=== PATIENT | female | born 1995 | race African-American/Black ===

== ENCOUNTER 2024-04-02 01:29 | Emergency (ER) | payer BC, SELFPAY ==
[2024-04-02 01:30] VITALS: BP 116/76; PULSE 111; RESP 16; TEMP 37.4; O2SAT 96; BMI 20.8
[2024-04-02] MEDS: diphenhydrAMINE 50 MG/ML inj 25 MG IVP ×2 (02:38→03:15)
[2024-04-02] MEDS: HYDROmorphone 0.5 mg/0.5 ml inj 2 MG IVP ×3 (02:38→04:50)
[2024-04-02] MEDS: ONDANSETRON 2 MG/ML inj 4 MG IVP (02:38)
[2024-04-02] MEDS: 0.45 % SODIUM CHLORIDE 1000 ML 1,000 ML IV (02:38)
--- NOTE | 2024-04-02 03:52 | ED_ITS ---
HPI - General Adult General Chief complaint: Back Injury/Pain Stated complaint: sickle cell crisis History of Present Illness HPI narrative: recently moved to the area and tonight while unpacking boxes began having severe pain in back and legs. patient has hx of sickle cell. tried her oral dilaudid 2mg around 2200 w/o relief. comes to ER for pain managment. 29-year-old young woman presenting to the emergency department for a first-time visit having just arrived to the area from [place]. Believe her boyfriend is living in the area. She notes herself to have sickle cell disease and has been having increasingly severe pain in her back and legs. No abdominal pain. No chest pain or shortness of breath. No cough. No fever. No hematuria noted. She does typically have oral Dilaudid and 3 hours prior to presentation is emergency department did take 2 mg. Has an appointment on Wednesday, tomorrow, apparently with [facility] at with hematology to establish cares. She reports receiving care at what sounds like an infusion center for sickle cell crises regularly. She is requesting her recommended regimen which includes as she describes it, likely 3 doses of Dilaudid and diphenhydramine, spaced an hour or 2 apart. Along with fluid resuscitation. Related Data Home Medications ?Medication ?Instructions ?Recorded ?Confirmed hydromorphone 2 mg tablet 4 mg PO Q4H PRN pain 04/02/24 04/08/24 folic acid 2 tab PO DAILY 04/04/24 04/08/24 hydroxyurea (sickle cell) 1,000 mg PO BID 04/04/24 04/08/24 Allergies Allergy/AdvReac Type Severity Reaction Status Date / Time cashew nut Allergy Verified 04/08/24 00:45 ketorolac (From Toradol) Allergy Verified 04/08/24 00:45 tramadol Allergy Verified 04/08/24 00:45 banana AdvReac Verified 04/08/24 00:45 latex AdvReac Verified 04/08/24 00:45 Review of Systems Status of ROS: Reports: 6 or more systems reviewed and unremarkable except as noted in History and below [facility] Medical History Sickle cell anemia ?D57.1 - Sickle-cell disease without crisis (ICD-10) Social History Smoking Status: Never smoker Do you use any of these nicotine containing products: None How often do you have a drink containing alcohol: never AUDIT-C Alcohol total score: 0 Non-prescribed substance use: opiods/painkillers Exam Narrative: Exam Narrative: Slim. Pleasant. Quite calm. Skin is warm and dry without bruising or rash. No scleral icterus. Breathing easily. Lungs are clear. No reproducible pain to palpation about the back or flanks. Abdomen is soft nontender. Well- perfused peripherally moving all extremities without difficulty. Heart in elevated rate and regular rhythm. No murmur noted. Const: Vital Signs, click to edit/add: Vital Signs - 24 hr 04/02/24 01:30 04/02/24 04:06 04/02/24 04:07 Temperature 99.4 F Pulse Rate [Pulse Oximeter] 111 H 90 Respiratory Rate 16 16 Blood Pressure [Ri ght Upper Arm] 116/76 Pulse Oximetry 96 93 93 Oxygen Delivery Me thod Room Air Room Air 04/02/24 04:10 Temperature Pulse Rate [Pulse Oximeter] Respiratory Rate Blood Pressure [Ri ght Upper Arm] 99/64 Pulse Oximetry Oxygen Delivery Me thod Documenting provider has reviewed patient's vital signs: yes Course Vital Signs Vital signs: Initial Vital Signs Temperature 99.4 F 04/02/24 01:30 Temperature Source Temporal Artery Scan 04/02/24 01:30 Pulse Rate 111 H 04/02/24 01:30 Respiratory Rate 16 04/02/24 01:30 Blood Pressure 116/76 04/02/24 01:30 Blood Pressure Mean 89 04/02/24 01:30 Blood Pressure Position Sitting 04/02/24 01:30 Pulse Oximetry 96 04/02/24 01:30 Oxygen Delivery Method Room Air 04/02/24 01:30 Vital Signs Temperature 99.4 F 04/02/24 01:30 Pulse Rate 111 H 04/02/24 01:30 Respiratory Rate 16 04/02/24 01:30 Blood Pressure 116/76 04/02/24 01:30 Pulse Oximetry 96 04/02/24 01:30 Oxygen Delivery Method Room Air 04/02/24 01:30 Temperature 99.4 F 04/02/24 01:30 Pulse Rate 90 04/02/24 04:07 Respiratory Rate 16 04/02/24 04:07 Blood Pressure 99/64 04/02/24 04:10 Pulse Oximetry 93 04/02/24 04:07 Oxygen Delivery Method Room Air 04/02/24 04:07 Medications Administered Medications: Discontinued Medications Generic Name Dose Route Start Last Admin Trade Name Ramona PRN Reason Stop Dose Admin Diphenhydramine HCl 25 mg 04/02/24 04:54 04/02/24 03:15 Diphenhydramine 50 Mg/Ml Inj IVP 04/02/24 04:55 25 mg ONCE ONE Administration Diphenhydramine HCl 25 mg 04/02/24 04:56 04/02/24 02:38 Diphenhydramine 50 Mg/Ml Inj IVP 04/02/24 04:57 25 mg ONCE ONE Administration Hydromorphone HCl 2 mg 04/02/24 04:38 04/02/24 02:38 Hydromorphone 0.5 Mg/0.5 Ml Inj IVP 04/02/24 04:39 2 mg ONCE ONE Administration Hydromorphone HCl 2 mg 04/02/24 04:54 04/02/24 03:15 Hydromorphone 0.5 Mg/0.5 Ml Inj IVP 04/02/24 04:55 2 mg ONCE ONE Administration Hydromorphone HCl 2 mg 04/02/24 04:56 04/02/24 04:50 Hydromorphone 0.5 Mg/0.5 Ml Inj IVP 04/02/24 04:57 2 mg ONCE ONE Administration Sodium Chloride 1,000 mls @ 1,000 mls/hr 04/02/24 05:10 04/02/24 03:38 0.45 % Sodium Chloride 1000 Ml IV 04/02/24 06:09 Infused .Q1H ONE Infusion Ondansetron HCl 4 mg 04/02/24 04:54 04/02/24 02:38 Ondansetron 2 Mg/Ml Inj IVP 04/02/24 04:55 4 mg ONCE ONE Administration Medical Decision Making MDM Narrative Medical decision making narrative: Would collect labs here to assistance tabs in care and certainly evaluate for anemia in this setting. IV is established. Have requested half normal saline bolus. Unclear benefit diphenhydramine other than at sounds as though the might be some nausea with IV opiate a dispose might augment affectively of the Dilaudid. At this time of night do not have records of prior care. Will treat as requested/recommended at this time. Uneventful during time in the ER. She required all 3 scheduled doses of hydromorphone. Hemoglobin is 7.3 which she reports as being acceptable for her and would not normally get a transfusion at this time. Other labs reviewed as baseline for pain crisis. Requesting final and 3rd dose; last dose of pain medication and has already contacted her ride to come get her. Reports improved. Would benefit from having records to further her cares. Has close follow-up with [facility] and notes that has pain medication at home anticipating further prescriptions in outpatient follow-up. See patient discharge plan for further discussion Lab Data Lab results reviewed: Yes I reviewed the patient's lab results Discharge Plan Discharge Clinical Impression: Sickle cell anemia with crisis, Back pain, Leg pain Patient Disposition: Home w/ Parent or Adult Condition: Improved Additional Instructions: As you have indicated, please be seen in 2 days time at [facility] hematology. Please take these copies of your labs with you to that appointment. Be seen sooner for marked increase in pain, shortness of breath, fever. Prescriptions: No Action hydromorphone 2 mg tablet 4 mg PO Q4H PRN (Reason: pain) hydroxyurea (sickle cell) 1,000 mg PO BID folic acid 2 tab PO DAILY Rx Instructions: 2mg Follow Up/Referrals: Provider,Not a Local [Primary Care Provider] - Stand Alone Forms: [employer] Info Instructions
[2024-04-02 04:06] VITALS: O2SAT 93
[2024-04-02 04:07] VITALS: PULSE 90; RESP 16; O2SAT 93
[2024-04-02 04:10] VITALS: BP 99/64
== END 2024-04-02 05:05 | disposition home or self-care (01) ==
PROVIDERS: Emergency Provider Family Medicine
DX: D57.00 Hb-SS disease with crisis, unspecified (principal); M54.9 Dorsalgia, unspecified
CPT/HCPCS: 94761; 99284; J1171; J1200; J2405

== ENCOUNTER 2024-04-04 02:05 | Emergency (ER) | payer BC, SELFPAY ==
[2024-04-04 02:11] VITALS: BP 120/72; PULSE 96; RESP 16; TEMP 36.7; O2SAT 98; BMI 20.8
--- NOTE | 2024-04-04 02:56 | ED_ITS ---
HPI - General Adult General Chief complaint: Unspecified Complaint, Adult Stated complaint: sickle cell crisis Time Seen by Provider: 04/04/24 02:10 Source: patient Mode of arrival: ambulatory Limitations: no limitations History of Present Illness HPI narrative: 29-year-old female presents to the ED in sickle cell crisis. Has been brewing over the last few days. Was evaluated in our ED overnight 2 nights ago with similar symptoms. Reported temporary improvement with the pain medications given. No fever. No chest pain or shortness of breath. Pain is in the back and legs which is common for her with these crisis ease. She reports that she had actually gone 5 years without a crisis prior to 2 years ago. She had a lot of trouble during her and has had more flares . She has been well managed by a dedicated sickle cell hematology team out in [place]. She moved to our clinic 5 days ago. She has established with primary care at through [facility] in [place]. Review of the DEPORTATION OFFICER monitoring is appropriate. She is on the wait list to be seen at the [facility] in [facility]. She has been in communication with them waiting for an appointment to open up. Hemoglobin and labs were checked at her ED visit 2 days ago. She has been using her 4 mg oral Toradol with inadequate relief of her pain. These labs are reviewed from [facility]. I can pull these up and actually see the labs that she had performed back in [place] as well since they are connected on the [email or web address] system. Unfortunately, the ED note from 2 days ago has not yet been completed by the provider. I can see that she was not discharged on additional medications but a typical sickle cell regimen was given IV here in the ED. Labs from [facility] showed that her hemoglobin was 7.6, was 7.53 days prior. She has had multiple blood transfusions, the last being just a few weeks ago. She was given 20 tablets of the hydromorphone on 03/30. Outside records reviewed. Outside labs reviewed. Past medical history really only notable for the sickle cell disease. Thankfully she has not had any major complications like critical ischemia from this. She does not smoke. She was on dialysis during but reports that she does not require this any longer. She has made all the appropriate arrangements for subspecialty care regarding her sickle cell disease but is awaiting appointments and has been diligent about following up regarding the wait list. ROS is negative for acute abnormalities outside of her sickle cell disease such as fever, chest pain, shortness of breath, vomiting, bloody stools, joint swelling. ROS is otherwise negative times 12 systems with the exception of the back and leg pain as described above. Related Data Home Medications ?Medication ?Instructions ?Recorded ?Confirmed hydromorphone 2 mg tablet 4 mg PO Q4H PRN pain 04/02/24 04/04/24 folic acid 2 tab PO DAILY 04/04/24 04/04/24 hydroxyurea (sickle cell) 1,000 mg PO BID 04/04/24 04/04/24 Allergies Allergy/AdvReac Type Severity Reaction Status Date / Time cashew nut Allergy Verified 04/04/24 02:14 ketorolac (From Toradol) Allergy Verified 04/04/24 02:14 tramadol Allergy Verified 04/04/24 02:14 banana AdvReac Verified 04/04/24 02:14 latex AdvReac Verified 04/04/24 02:14 PFSH PFSH Medical History Sickle cell anemia ?D57.1 - Sickle-cell disease without crisis (ICD-10) Social History Smoking Status: Never smoker Do you use any of these nicotine containing products: None How often do you have a drink containing alcohol: never AUDIT-C Alcohol total score: 0 Non-prescribed substance use: opiods/painkillers Exam Const: Vital Signs, click to edit/add: Vital Signs - 24 hr 04/04/24 02:11 04/04/24 03:10 04/04/24 03:50 Temperature 98.0 F 98.0 F Pulse Rate [Pulse Oximeter] 96 85 Respiratory Rate 16 16 Blood Pressure [Ri ght Upper Arm] 120/72 118/70 Pulse Oximetry 98 98 98 Oxygen Delivery Me thod Room Air Room Air 04/04/24 04:38 Temperature 98.0 F Pulse Rate [Pulse Oximeter] 79 Respiratory Rate 16 Blood Pressure [Ri ght Upper Arm] 114/69 Pulse Oximetry 98 Oxygen Delivery Me thod Room Air Documenting provider has reviewed patient's vital signs: yes Common normals: no apparent distress and alert General appearance: cooperative, comfortable and well kempt Nutritional appearance: thin Other: Excellent historian. No inconsistencies in her story. Does appear well nourished and well hydrated. Friendly and cooperative. HENMT: Common normals: normocephalic Head and scalp: normal to inspection and normocephalic Face and sinus: normal facial exam Mouth: oral and christian claude mucosa normal Throat: posterior oropharynx normal Eye: Common normals: conjunctivae normal General eye: normal appearance of both eyes Conjunctiva: conjunctiva(e) normal Neck & C-Spine: Common normals: full ROM and no lymphadenopathy Resp: Common normals: normal respiratory effort, no use of accessory muscles and clear to auscultation bilaterally Effort & inspection: not able to speak in complete sentences Auscultation: clear to auscultation bilaterally Cardio: Common normals: regular rate, regular rhythm, S1 normal heart sound, S2 normal heart sound and no murmurs Rate: regular rate Rhythm: regular rhythm Heart sounds: S1 normal and S2 normal GI: Common normals: Normal to inspection, nondistended, normoactive bowel sounds present, soft to palpation, non-tender, no hepatosplenomegaly and no masses Palpation: soft and no hepatosplenomegaly Extremity: Other: Legs with good capillary refill and 2+ dorsalis pedis pulses with normal capillary refill in all toes. No obvious swelling to the ankles, feet or knees. Neuro: Common normals: moves all extremities Sensorium/orientation: alert Speech: speech normal Motor exam: strength 5/5 throughout Psych: Common normals: speech normal Appearance: well kempt Activity/motor behavior: appropriate eye contact Speech: normal speech Insight: insight good Judgement: judgment good Skin: Common normals: no rashes or lesions noted General skin exam: no rashes or lesions noted Course Course ED Course: 29-year-old female with history of sickle cell disease presenting with pain crisis. No signs of hypoxia, tachycardia, chest or pulmonary symptoms. Patient has reliable story, consistent and outside records verify plan of care. She has maintain diligence at seeking establishment with the sickle cell clinic. She just had labs done 2 days ago, I do not recommend that we repeat those today. They should be repeated every couple of weeks unless there are clinical signs of change. There is no evidence of acute limb ischemia or acute chest syndrome today. Will give 1 L normal saline, 2 mg IV Dilaudid with planned repeat Dilaudid in 1 hour if well tolerated for a total of 3 doses.. 25 mg of IV piggyback Benadryl, repeat 1 hour later if tolerated. I am not comfortable giving her additional outpatient script for pain medications, those really should come through her primary care team. I did residential substance abuse counselor patient that really would be easier to manage if she came in during the day for treatment. I would have more success of being able to get hold of the sickle cell team and may be able to leverage some additional resources to help get her in more quickly. She verbalizes how this does make good sense and will keep this in mind in the future. She is encouraged to come in of course if she has a crisis, acute chest pain, difficulty breathing but the rationale and differentiation between these things was understood. Reevaluation(s) Time of Reevaluation #1: 04:55 Reevaluation #1: Nursing team reported has she has had no hypoxic events with the 3 doses of Dilaudid. Did tolerate the 2 doses of Benadryl and is feeling much better. Ambulating, walking a straight line and has a ride to bring her home. Will discharge home. Patient needs follow-up with her primary care team for further long-term direction and continue her attempts to obtain management through the [facility] at the . Vital Signs Vital signs: Initial Vital Signs Temperature 98.0 F 04/04/24 02:11 Temperature Source Temporal Artery Scan 04/04/24 02:11 Pulse Rate 96 04/04/24 02:11 Respiratory Rate 16 04/04/24 02:11 Blood Pressure 120/72 04/04/24 02:11 Blood Pressure Mean 88 04/04/24 02:11 Blood Pressure Position Sitting 04/04/24 02:11 Pulse Oximetry 98 04/04/24 02:11 Oxygen Delivery Method Room Air 04/04/24 02:11 Vital Signs Temperature 98.0 F 04/04/24 02:11 Pulse Rate 96 04/04/24 02:11 Respiratory Rate 16 04/04/24 02:11 Blood Pressure 120/72 04/04/24 02:11 Pulse Oximetry 98 04/04/24 02:11 Oxygen Delivery Method Room Air 04/04/24 02:11 Temperature 98.0 F 04/04/24 04:38 Pulse Rate 79 04/04/24 04:38 Respiratory Rate 16 04/04/24 04:38 Blood Pressure 114/69 04/04/24 04:38 Pulse Oximetry 98 04/04/24 04:38 Oxygen Delivery Method Room Air 04/04/24 04:38 Medications Administered Medications: Generic Name Dose Route Start Last Admin Trade Name Freq PRN Reason Stop Dose Admin Diphenhydramine HCl 25 mg/ 100.5 mls @ 402 mls/hr 04/04/24 04:00 04/04/24 04:33 Sodium Chloride IVPB 402 mls/hr ONCE PRN Administration pain Ondansetron HCl 4 mg 04/04/24 02:51 04/04/24 03:01 Ondansetron 2 Mg/Ml Inj IVP 4 mg ONCE PRN Administration Discontinued Medications Generic Name Dose Route Start Last Admin Trade Name Freq PRN Reason Stop Dose Admin Hydromorphone HCl 2 mg 04/04/24 02:51 04/04/24 03:04 Hydromorphone 0.5 Mg/0.5 Ml Inj IVP 04/04/24 02:52 2 mg ONCE ONE Administration Hydromorphone HCl 2 mg 04/04/24 04:00 04/04/24 04:34 Hydromorphone 0.5 Mg/0.5 Ml Inj IVP 04/04/24 04:01 2 mg ONCE ONE Administration Hydromorphone HCl 2 mg 04/04/24 04:45 04/04/24 03:45 Hydromorphone 0.5 Mg/0.5 Ml Inj IVP 04/04/24 04:46 2 mg ONCE ONE Administration Sodium Chloride 1,000 mls @ 1,000 mls/hr 04/04/24 02:51 04/04/24 04:29 0.9 % Sodium Chloride 1000 Ml IV 04/04/24 03:50 Infused .Q1H DANNI Infusion Diphenhydramine HCl 25 mg/ 100.5 mls @ 402 mls/hr 04/04/24 02:51 04/04/24 03:21 Sodium Chloride IVPB 04/04/24 02:52 Infused ONCE ONE Infusion Medical Decision Making ECG Data Interpretation: Discharge Plan Discharge Clinical Impression: Sickle cell pain crisis Patient Disposition: Home w/ Parent or Adult Condition: Stable Instructions: Sickle Cell Crisis (ED) Additional Instructions: As we discussed, keep trying to get into the [facility] through [facility]. They can help guide future crisis management for us. I reviewed your labs from the other clinic. Her hemoglobin was 7.6 just a day and a half ago. This is pretty reassuring. I would recommend that this be rechecked about every 2 weeks or so. If you have worsening of pain or other signs of escalating crisis, thing should be rechecked again sooner. Continue taking the prescription pain medication from your primary care team. Unfortunately, overnight, there is not much I can do to facilitate a faster appointment or consultation with the sickle cell team unless she require acute hospitalization. Thankfully, at this time you do not seem to need this. As you know, I would be very concerned if you started having chest pain, significant shortness of breath, severe abdominal pain or other signs of critical organ ischemia. Please return to the emergency department if you have severe symptoms at any time. Continue with your current medication regimen in the meantime. Activity Level: Activity as Tolerated Discharge Diet: Regular Prescriptions: No Action hydromorphone 2 mg tablet 4 mg PO Q4H PRN (Reason: pain) hydroxyurea (sickle cell) 1,000 mg PO BID folic acid 2 tab PO DAILY Rx Instructions: 2mg Follow Up/Referrals: Provider,Not a Local [Primary Care Provider] - Stand Alone Forms: [employer] Info Instructions
[2024-04-04] MEDS: ONDANSETRON 2 MG/ML inj 4 MG IVP (03:01)
[2024-04-04] MEDS: HYDROmorphone 0.5 mg/0.5 ml inj 2 MG IVP ×3 (03:04→04:34)
[2024-04-04] MEDS: diphenhydrAMINE 25 MG in 0.9 % SODIUM CHLORIDE 100 ml 100 ML 402 MG IVPB ×2 (03:07→04:33)
[2024-04-04 03:10] VITALS: O2SAT 98
[2024-04-04] MEDS: 0.9 % SODIUM CHLORIDE 1000 ml 1,000 ML IV (03:12)
[2024-04-04 03:50] VITALS: BP 118/70; PULSE 85; RESP 16; TEMP 36.7; O2SAT 98
[2024-04-04 04:38] VITALS: BP 114/69; PULSE 79; RESP 16; TEMP 36.7; O2SAT 98
[2024-04-04 05:00] VITALS: BP 114/69; PULSE 79; RESP 16; TEMP 36.7
== END 2024-04-04 05:00 | disposition home or self-care (01) ==
PROVIDERS: Emergency Provider Family Medicine
DX: D57.00 Hb-SS disease with crisis, unspecified (principal)
CPT/HCPCS: 94761; 96365; 96375; 99284; J1171; J1200; J2405; J7030

== ENCOUNTER 2024-04-08 00:37 | Emergency (ER) | payer BC, SELFPAY ==
[2024-04-08] VITALS (11 sets, daily range): BP systolic 95–119; BP diastolic 66–84; PULSE 85–106; RESP 16–18; TEMP 36.8; O2SAT 91–100; BMI 20.8
--- NOTE | 2024-04-08 01:12 | CRLHL7_ITS ---
For Patients: As a result of the Century Cures Act, medical imaging exams and procedure reports are released immediately into your electronic medical record. You may view this report before your referring provider. If you have questions, please contact your health care provider. INDICATION: Sickle cell, chest pain TECHNIQUE: Chest radiograph 2 views COMPARISON: None FINDINGS: Mediastinum: The mediastinum is normal in appearance. The heart silhouette is normal in size and morphology. Lung: Mild patchy ground-glass opacities are noted within the right mid and lower lung zone. A 4 mm nodule is noted in the left mid lung. No sign of pleural effusion seen. No pneumothorax is identified. Bone and Soft tissue: Unremarkable for age. IMPRESSION: 1. Mild patchy ground-glass opacities are noted within the right mid and lower lung zone. Clinical correlation is recommended to exclude acute chest syndrome, pneumonitis or atypical infection. 2. A 4 mm nodule is noted in the left mid lung. Dictated by Darwin Valdez MD @ 04/08/2024 2:05:32 AM Dictated by: Darwin Valdez MD @ 04/08/2024 02:06:01 (Electronically Signed)
--- NOTE | 2024-04-08 01:25 | ED.GENADULT ---
HPI - General Adult General Date Seen: 04/08/24 Chief complaint: Unspecified Complaint, Adult Stated complaint: sickle cell crisis Time Seen by Provider: 04/08/24 01:02 History of Present Illness HPI narrative: This is a 29-year-old female with history of sickle cell disease, presenting to the ER today with pain in her legs, back and left chest. She has a long history of sickle cell disease and she is well-versed in her illness. She has oral Dilaudid for management of vaso-occlusive pain crises that she takes at home as needed. She is on hydroxyurea 2000 mg per day. She has had 1 successful , and has an [id number] female (born at 32 weeks gestation) at home. Her daughter is a sickle cell carrier but does not have sickle cell disease. The patient's baseline hemoglobin runs typically around 7.5. She typically gets transfused when her hemoglobin drops below 7. She has had a few episodes of acute chest syndrome in the past. She recently moved from [place] to [place], because her boyfriend is from here. She is working on establishing care with Hematology at the [facility] for her 1st visit last Wednesday. She presents to the ER today with pain in her legs, back and also in her left chest, that began today. She had been taking her oral pain medications at home but they are not very effective. With the new chest pain she is also worried about possible developing chest syndrome. She is not running a fever. No cough. She is not short of breath. She is not nauseous. No abdominal pain. No known chest injury. The chest pain is sharp. It is not really pleuritic or hurting to breathe. Related Data Home Medications ?Medication ?Instructions ?Recorded ?Confirmed hydromorphone 2 mg tablet 4 mg PO Q4H PRN pain 04/02/24 04/08/24 folic acid 2 tab PO DAILY 04/04/24 04/08/24 hydroxyurea (sickle cell) 1,000 mg PO BID 04/04/24 04/08/24 Previous Rx's ?Medication ?Instructions ?Recorded azithromycin 250 mg tablet 250 mg PO DAILY 4 days #4 tabs 04/08/24 cefdinir 300 mg capsule 300 mg PO BID #20 caps 04/08/24 cefdinir 300 mg capsule 300 mg PO BID 107 days #214 caps 04/08/24 Allergies Allergy/AdvReac Type Severity Reaction Status Date / Time cashew nut Allergy Verified 04/08/24 00:45 ketorolac (From Toradol) Allergy Verified 04/08/24 00:45 tramadol Allergy Verified 04/08/24 00:45 banana AdvReac Verified 04/08/24 00:45 latex AdvReac Verified 04/08/24 00:45 [facility] Medical History Sickle cell anemia ?D57.1 - Sickle-cell disease without crisis (ICD-10) Social History Smoking Status: Never smoker Do you use any of these nicotine containing products: None How often do you have a drink containing alcohol: never AUDIT-C Alcohol total score: 0 Non-prescribed substance use: opiods/painkillers Exam Narrative: Exam Narrative: Constitutional: Appears well-developed and well-nourished. Alert. Conversant and knowledgeable about her illness. Detailed. Non toxic. HENT: Head: Atraumatic. Nose: Nose normal. Mouth/Throat: Oral mucosa is clear and moist. no trismus. Pharynx normal. Tonsils symmetric. No tonsillar enlargement, erythema, or exudate. Eyes: Conjunctivae normal. EOM normal. Pupils equal, round, and reactive to light. No scleral icterus. Neck: Normal range of motion. Neck supple. No tracheal deviation present. Cardiovascular: Normal rate, regular rhythm. No gallop. No friction rub. Very soft systolic murmur heard. Symmetric radial artery pulses Pulmonary/Chest: Effort normal. No stridor. No respiratory distress. No wheezes. No rales. No rhonchi . No tenderness. Abdominal: Soft. Bowel sounds normal. No distension. No mass. I do not appreciate any hepatosplenomegaly. No tenderness. No rebound. No guarding. Musculoskeletal: RUE: Normal range of motion. No tenderness. No deformity LUE: Normal range of motion. No tenderness. No deformity RLE: Normal range of motion. No edema. No tenderness. No deformity LLE: Normal range of motion. No edema. No tenderness. No deformity Neurological: Alert and oriented to person, place, and time. Normal strength. CN II-VII intact. No sensory deficit. GCS eye subscore is 4. GCS verbal subscore is 5. GCS motor subscore is 6. Normal coordination Skin: Skin is warm and dry. No rash noted. No pallor. Normal capillary refill. Psychiatric: Normal mood. Normal affect. Const: Vital Signs, click to edit/add: Vital Signs - 24 hr 04/08/24 00:43 04/08/24 00:45 04/08/24 00:46 Temperature 98.2 F Pulse Rate 106 H Pulse Rate [Right Pulse Oximeter] 99 Respiratory Rate 18 Blood Pressure 119/71 Blood Pressure [Ri ght Upper Arm] 119/71 Pulse Oximetry 100 100 Oxygen Delivery Me thod Room Air 04/08/24 01:00 04/08/24 02:03 04/08/24 02:04 Temperature Pulse Rate 99 104 H 97 Pulse Rate [Right Pulse Oximeter] Respiratory Rate 16 Blood Pressure 113/75 Blood Pressure [Ri ght Upper Arm] Pulse Oximetry 100 96 91 Oxygen Delivery Me thod 04/08/24 02:15 04/08/24 02:32 04/08/24 03:01 Temperature Pulse Rate 91 87 Pulse Rate [Right Pulse Oximeter] Respiratory Rate Blood Pressure 118/84 109/75 Blood Pressure [Ri ght Upper Arm] Pulse Oximetry 93 100 98 Oxygen Delivery Me thod 04/08/24 03:31 Temperature Pulse Rate 96 Pulse Rate [Right Pulse Oximeter] Respiratory Rate 16 Blood Pressure 95/66 Blood Pressure [Ri ght Upper Arm] Pulse Oximetry 100 Oxygen Delivery Me thod Course Vital Signs Vital signs: Initial Vital Signs Temperature 98.2 F 04/08/24 00:43 Temperature Source Temporal Artery Scan 04/08/24 00:43 Pulse Rate 99 04/08/24 00:43 Pulse Rhythm Regular 04/08/24 00:43 Pulse Strength 3+ Normal 04/08/24 00:43 Respiratory Rate 18 04/08/24 00:43 Blood Pressure 119/71 04/08/24 00:43 Blood Pressure Mean 87 04/08/24 00:43 Blood Pressure Position Sitting 04/08/24 00:43 Pulse Oximetry 100 04/08/24 00:43 Oxygen Delivery Method Room Air 04/08/24 00:43 Vital Signs Temperature 98.2 F 04/08/24 00:43 Pulse Rate 99 04/08/24 00:43 Respiratory Rate 18 04/08/24 00:43 Blood Pressure 119/71 04/08/24 00:43 Pulse Oximetry 100 04/08/24 00:43 Oxygen Delivery Method Room Air 04/08/24 00:43 Temperature 98.2 F 04/08/24 00:43 Pulse Rate 96 04/08/24 03:31 Respiratory Rate 16 04/08/24 03:31 Blood Pressure 95/66 04/08/24 03:31 Pulse Oximetry 100 04/08/24 03:31 Oxygen Delivery Method Room Air 04/08/24 00:43 Medications Administered Medications: Generic Name Dose Route Start Last Admin Trade Name Freq PRN Reason Stop Dose Admin Hydromorphone HCl 2 mg 04/08/24 02:33 04/08/24 02:48 Hydromorphone 0.5 Mg/0.5 Ml Inj IVP 04/08/24 02:34 2 mg ONCE ONE Administration Hydromorphone HCl 2 mg 04/08/24 03:16 04/08/24 03:37 Hydromorphone 0.5 Mg/0.5 Ml Inj IVP 04/08/24 03:17 2 mg ONCE ONE Administration Ceftriaxone Sodium 1 gm/ 100 mls @ 200 mls/hr 04/08/24 02:29 04/08/24 03:29 Sodium Chloride IVPB 04/08/24 02:30 Infused ONCE ONE Infusion Azithromycin 500 mg/ Sodium 255 mls @ 255 mls/hr 04/08/24 02:29 04/08/24 03:16 Chloride IVPB 04/08/24 02:30 255 mls/hr ONCE ONE Administration Sodium Chloride 500 mls @ 500 mls/hr 04/08/24 02:29 04/08/24 03:42 0.9 % Sodium Chloride 500 Ml IV 04/08/24 03:28 Infused .Q1H ONE Infusion Ondansetron HCl 4 mg 04/08/24 03:18 04/08/24 03:36 Ondansetron 2 Mg/Ml Inj IVP 04/08/24 03:19 4 mg ONCE ONE Administration Discontinued Medications Generic Name Dose Route Start Last Admin Trade Name Freq PRN Reason Stop Dose Admin Diphenhydramine HCl 25 mg 04/08/24 01:10 04/08/24 01:29 Diphenhydramine 25 Mg Capsule PO 04/08/24 01:11 25 mg ONCE ONE Administration Hydromorphone HCl 2 mg 04/08/24 01:10 04/08/24 01:30 Hydromorphone 0.5 Mg/0.5 Ml Inj IVP 04/08/24 01:11 2 mg ONCE ONE Administration Medical Decision Making MDM Narrative Medical decision making narrative: Very pleasant 29-year-old the female with a history of sickle cell disease. She is presenting to the ER tonight with concern for pain involving her legs, back, and also her left chest. The she recently moved from [place] here to [place] and is in the process of establishing care with Hematology through the [facility]. She had been seen here in the ER 6 days ago on 04/02 for back pain and sickle cell pain crisis. She did not have labs checked during her last visit but she knows that her baseline hemoglobin tends to be about 7.5. She has had a new bout of pain beginning today. Today's pain is also different because it also involves her chest rather than just her legs and back. She is concerned about possible acute chest syndrome. She is not short of breath. No cough. No fever but she does have chest pain. The workup here in the ER tonight shows hemoglobin is 9.0, which actually slightly above her baseline. Suspect likely due to hemoconcentration from dehydration. No evidence for acute anemia or requiring transfusion or splenic sequestration. Gentle IV fluid bolus administered. She is not vomiting. No diarrhea. Reticulocyte count is elevated suggesting that she is having appropriate bone marrow response and is not having an aplastic crisis. Bilirubin is 3.0. White count is 13. Patient reports that she often will have a slightly elevated white count during a pain crisis. Suspect this is probably related to pain crisis or acute chest syndrome. However consider also possible infection. She is not febrile. Chest x-ray does show a subtle infiltrate in the right mid/lower lung. This could be a community-acquired pneumonia, viral infection, or also could be an infiltrate related to acute chest syndrome. Suspect with this a ?mild? episode of acute chest syndrome since oxygen sat is 100%, it only involves 1 long, and the patient does not require transfusion based on hemoglobin value at this time. IV Rocephin and Zithromax 6 administered. 500 mL saline administered. Does not require immediate transfusion here in the ER. I recommended admission for IV antibiotics and clinical monitoring in the setting of an acute phase occlusive pain crisis and acute chest syndrome. Although she is hemodynamically stable this point, there is risk for deterioration. Patient understands my recommendation. However she cannot stay in the hospital because she does not have early childhood educator aide for her [id number]. She is requesting discharge. She agreed to stay long enough to receive 1st dose of antibiotics, IV fluids. She received three intravenous doses of Dilaudid, 2 mg each. Benadryl 25 mg p.o. to prevent itching. Zofran 4 mg IV for nausea. Although she is requiring serial doses of IV Dilaudid here in the ER and on recommending admission because of acute chest syndrome, she still needs to discharge home. She understands the risks of discharge. I think she has medical could decision-making capacity. Therefore will try to treat her at home. She has adequate supplies of oral Dilaudid. Will put her on oral antibiotics. Precautions for return to the ER reviewed.. Lab Data Labs: Lab Results 04/08/24 04/08/24 04/08/24 Range/Units 01:50 01:58 02:43 WBC 13.00 H (4.50-11.00) K/uL RBC 2.97 L (4.00-5.20) m/uL Hgb 9.0 L (12.0-16.0) gm/dL Hct 26.8 L (33.0-51.0) % MCV 90 (80-100) fL MCH 30 (26-34) pg MCHC 34 (32-36) gm/dL RDW Coeff of Juli 20.3 H (11.5-15.5) % Plt Count 494 H (140-440) K/uL Neut % (Auto) 66.2 (42.0-72.0) % Lymph % (Auto) 21.1 (20-44) % [place] % (Auto) 10.7 (0.0-11.0) % Eos % (Auto) 0.7 (0.0-7.0) % Baso % (Auto) 0.9 (0.0-3.0) % Neut # (Auto) 8.60 H (1.7-7.0) K/uL Lymph # (Auto) 2.70 (0.90-2.90) K/uL [place] # (Auto) 1.40 H (0.00-0.90) K/UL Eos # (Auto) 0.10 (0.00-0.50) K/uL Baso # (Auto) 0.10 (0.00-0.30) K/uL Abs Immat Gran (auto) 0.10 (0.00-0.30) K/uL Imm/Tot Granulo (auto) 0.4 % Absolute Retic 0.33 H (0.03-0.08) # Percent Retic 11.1 H (0.5-2.0) % Immature Retic Fraction 25.9 H (3.0-15.9) % Retic Hgb Equivalent 30.9 (29.0-35.0) pg Sodium 140 (135-149) mmol/L Potassium 4.7 (3.6-5.1) mmol/L Chloride 111 (96-114) mmol/L Carbon Dioxide 19 L (20-32) mmol/L Anion Gap 10 (7-15) mEq/L BUN 12 (5-24) mg/dL Creatinine 0.7 (0.5-1.5) mg/dL Estimated Creat Clear 88.68 Estimated GFR 119 ml/min Glucose 109 (60-115) mg/dL Lactate 1.1 (0.5-1.9) mmol/L Calcium 9.4 (8.4-10.6) mg/dL Total Bilirubin 3.0 H (0.1-1.5) mg/dL AST 54 H (12-35) U/L ALT 38 H (4-35) U/L Alkaline Phosphatase 120 (40-150) U/L Total Protein 9.1 H (6.0-8.3) g/dL Albumin 5.0 (3.3-5.0) g/dL POC Troponin I 0.00 L (0.01-0.04) ng/ml Imaging Data Chest x-ray: My impression: No acute infiltrate. Normal cardiac silhouette. Radiologist's impression: IMPRESSION: 1. Mild patchy ground-glass opacities are noted within the right mid and lower lung zone. Clinical correlation is recommended to exclude acute chest syndrome, pneumonitis or atypical infection. 2. A 4 mm nodule is noted in the left mid lung. ECG Data Attestation: I personally reviewed and interpreted this ECG as follows: Interpretation: Normal sinus rhythm Rate: 99 ND: 130 QRS axis: Normal QRS axis. No pathologic Q-waves. ST segment/T wave: No ST segment elevation or depression. QTc: 454 Discharge Plan Discharge Clinical Impression: Acute chest syndrome, Sickle cell anemia with crisis Patient Disposition: Home, Self-Care Condition: Stable Instructions: Sickle Cell Crisis (ED), Acute Chest Syndrome (DC) Additional Instructions: As we discussed, please started the antibiotics take your next dose is tomorrow. Continue on your other regular medications. please recheck with your regular doctor or applied mathematician on Wednesday. Come back to the ER right away if you need help or if you have any worsening symptoms such as shortness of breath, oxygen level below 92%, worsening pain, fever, weakness, or any other concerns. Prescriptions: New cefdinir 300 mg capsule 300 mg PO BID 107 Days Qty: 214 0RF azithromycin 250 mg tablet 250 mg PO DAILY 4 Days Qty: 4 0RF Rx Instructions: first dose was given in ER 04/08/24. start on day 2 of therapy cefdinir 300 mg capsule 300 mg PO BID Qty: 20 0RF No Action hydromorphone 2 mg tablet 4 mg PO Q4H PRN (Reason: pain) hydroxyurea (sickle cell) 1,000 mg PO BID folic acid 2 tab PO DAILY Rx Instructions: 2mg Follow Up/Referrals: Provider,Not a Local [Primary Care Provider] - Stand Alone Forms: [employer] Info Instructions
[2024-04-08] MEDS: diphenhydrAMINE 25 MG CAPSULE PO (01:29)
[2024-04-08] MEDS: HYDROmorphone 0.5 mg/0.5 ml inj 2 MG IVP ×3 (01:30→03:37)
[2024-04-08 02:02] LABS: Basophils Percent Auto 0.9 % (0.0-3.0); Eosinophils Percent Auto 0.7 % (0.0-7.0); Hematocrit 26.8 % (33.0-51.0); Immature Granulocytes Pct Auto 0.4 %; Lymphocytes Percent Auto 21.1 % (20-44); Mean Corpuscular HGB Conc 34 gm/dL (32-36); Mean Corpuscular Hemoglobin 30 pg (26-34); Mean Corpuscular Volume 90 fL (80-100); Monocytes Percent Auto 10.7 % (0.0-11.0); Neutrophils Percent Auto 66.2 % (42.0-72.0); Platelet Count* 494 K/uL (140-440); RDW Coefficient of Variation % 20.3 % (11.5-15.5); Red Blood Count 2.97 m/uL (4.00-5.20)
[2024-04-08 02:05] LABS: Slide Review Reflex No
[2024-04-08 02:16] LABS: Chloride* 111 mmol/L (96-114); Sodium* 140 mmol/L (135-149)
[2024-04-08 02:17] LABS: Potassium* 4.7 mmol/L (3.6-5.1)
[2024-04-08 02:19] LABS: Alanine Aminotransferase* 38 U/L (4-35); Alkaline Phosphatase* 120 U/L (40-150); Anion Gap 10 mEq/L (7-15); Aspartate Amino Transferase* 54 U/L (12-35); Blood Urea Nitrogen* 12 mg/dL (5-24); Carbon Dioxide* 19 mmol/L (20-32); Creatinine* 0.7 mg/dL (0.5-1.5); Est. Creatinine Clearance* 88.68; Estimated Glomerular Filt Rate 119 ml/min; Glucose* 109 mg/dL (60-115); Total Protein* 9.1 g/dL (6.0-8.3)
[2024-04-08 02:20] LABS: Calcium* 9.4 mg/dL (8.4-10.6)
[2024-04-08] MEDS: cefTRIAXone 1 GM in 0.9 % SODIUM CHLORIDE Mini-bag 100 ML IVPB (02:41)
[2024-04-08] MEDS: 0.9 % SODIUM CHLORIDE 500 ML 500 ML IV (02:41)
[2024-04-08 02:44] LABS: Lactate* 1.1 mmol/L (0.5-1.9)
[2024-04-08 02:52] LABS: Immature Reticulocyte Fraction 25.9 % (3.0-15.9); Reticulocyte Hemoglobin Equivi 30.9 pg (29.0-35.0); Reticulocyte Percent 11.1 % (0.5-2.0); Reticulocytes Absolute 0.33 # (0.03-0.08)
[2024-04-08] MEDS: AZITHROMYCIN 500 MG in 0.9 % SODIUM CHLORIDE 250 ml 250 ML 255 MG IVPB (03:16)
[2024-04-08] MEDS: ONDANSETRON 2 MG/ML inj 4 MG IVP (03:36)
== END 2024-04-08 03:57 | disposition home or self-care (01) ==
PROVIDERS: Emergency Provider Emergency Medicine
DX: D57.01 Hb-SS disease with acute chest syndrome (principal)
CPT/HCPCS: 36415; 71046; 80053; 83605; 84484; 85025; 85045; 87040; 93005; 94761; 96365; 96368; 96375; 99284; 99285; A9270; J0456; J0696; J1171; J2405; J7030; J7050

== ENCOUNTER 2024-04-11 11:44 | Emergency (ER) | payer BC, SELFPAY ==
[2024-04-11 11:51] VITALS: BP 102/70; PULSE 89; RESP 16; TEMP 37.2; O2SAT 99; BMI 20.8
--- NOTE | 2024-04-11 13:04 | ED_ITS ---
HPI - General Adult General Chief complaint: Unspecified Complaint, Adult Stated complaint: sickle cell crisis Time Seen by Provider: 04/11/24 13:04 History of Present Illness HPI narrative: pt states having sickle cell crisis. c /o pain everywhere and a little pain in chest. has been taking dilaudid but it is not working . I'm extra tired so I don' t know if my hemoglobin is low and need a transfusion. 29-year-old woman returning to this emergency department with concern of diffuse pain with some chest pain maybe a little shortness of breath. She just feels very tired and is concerned about low hemoglobin. Underlying history of sickle cell disease. When I last saw her she had indicated that was to be seen at [facility] hematology the following day. It sounds as though this has not transpired. She reports a pending appointment now on May 01. Reviewing outside records reveals daily visits to regional emergency departments. Repeat prescriptions of Dilaudid. Being seen in different emergency departments twice in a day. History of leaving pending admission. Was actually seen in primary care this morning and prescribed 4 mg tabs of Dilaudid. Related Data Home Medications ?Medication ?Instructions ?Recorded ?Confirmed hydromorphone 2 mg tablet 4 mg PO Q4H PRN pain 04/02/24 04/08/24 folic acid 2 tab PO DAILY 04/04/24 04/08/24 hydroxyurea (sickle cell) 1,000 mg PO BID 04/04/24 04/08/24 Previous Rx's ?Medication ?Instructions ?Recorded azithromycin 250 mg tablet 250 mg PO DAILY 4 days #4 tabs 04/08/24 cefdinir 300 mg capsule 300 mg PO BID #20 caps 04/08/24 cefdinir 300 mg capsule 300 mg PO BID 107 days #214 caps 04/08/24 Allergies Allergy/AdvReac Type Severity Reaction Status Date / Time cashew nut Allergy Verified 04/08/24 00:45 ketorolac (From Toradol) Allergy Verified 04/08/24 00:45 tramadol Allergy Verified 04/08/24 00:45 banana AdvReac Verified 04/08/24 00:45 latex AdvReac Verified 04/08/24 00:45 Review of Systems Status of ROS: Reports: 6 or more systems reviewed and unremarkable except as noted in History and below [facility] Medical History Sickle cell anemia ?D57.1 - Sickle-cell disease without crisis (ICD-10) Social History Smoking Status: Never smoker Do you use any of these nicotine containing products: None How often do you have a drink containing alcohol: never AUDIT-C Alcohol total score: 0 Non-prescribed substance use: opiods/painkillers Exam Narrative: Exam Narrative: Calm. Quiet voice. Breathing easily. No distress. Skin is warm and dry witho ut bruising or bleeding. Lungs are clear. Heart in regular rate and rhythm. Const: Vital Signs, click to edit/add: Vital Signs - 24 hr 04/11/24 11:51 Temperature 99 F Pulse Rate [Pulse Oximeter] 89 Respiratory Rate 16 Blood Pressure [Ri ght Upper Arm] 102/70 Pulse Oximetry 99 Oxygen Delivery Me thod Room Air Documenting provider has reviewed patient's vital signs: yes Course Vital Signs Vital signs: Initial Vital Signs Temperature 99 F 04/11/24 11:51 Temperature Source Temporal Artery Scan 04/11/24 11:51 Pulse Rate 89 04/11/24 11:51 Respiratory Rate 16 04/11/24 11:51 Blood Pressure 102/70 04/11/24 11:51 Blood Pressure Mean 80 04/11/24 11:51 Blood Pressure Position Sitting 04/11/24 11:51 Pulse Oximetry 99 04/11/24 11:51 Oxygen Delivery Method Room Air 04/11/24 11:51 Vital Signs Temperature 99 F 04/11/24 11:51 Pulse Rate 89 04/11/24 11:51 Respiratory Rate 16 04/11/24 11:51 Blood Pressure 102/70 04/11/24 11:51 Pulse Oximetry 99 04/11/24 11:51 Oxygen Delivery Method Room Air 04/11/24 11:51 Temperature 99 F 04/11/24 11:51 Pulse Rate 89 04/11/24 11:51 Respiratory Rate 16 04/11/24 11:51 Blood Pressure 102/70 04/11/24 11:51 Pulse Oximetry 99 04/11/24 11:51 Oxygen Delivery Method Room Air 04/11/24 11:51 Medical Decision Making MDM Narrative Medical decision making narrative: As in HPI I inquire about recent events. She denies recent prescriptions being able to be filled references somewhat recent prescriptions where she was not able to fill the amount prescribed and so never got them filled. Also denies recent visits. I note discrepancy in what is clearly occurring in the record. Expressed my concern for these high doses of opiates and repeat prescriptions and note that contrary to what she had said definitely had an appointment in clinic this morning. I note that will not be able to provide her with IV Dilaudid as typically requested but would certainly happily work up concern of sickle cell crisis and consider alternate treatments. Ultimately she declines saying that she does not want to trouble us. I also offer Narcan and related information which she also declines noting that she already has it. See patient discharge plan for further discussion Medical Records Medical records reviewed: Yes I reviewed the patient's medical records Discharge Plan Discharge Clinical Impression: Drug-seeking behavior, Pain, Sickle cell disease Patient Disposition: Home w/ Parent or Adult Condition: Stable Additional Instructions: Please follow-up with that appointment on May 01 with hematology. Please be careful with opiates/Dilaudid. Prescriptions: No Action cefdinir 300 mg capsule 300 mg PO BID 107 Days Qty: 214 0RF azithromycin 250 mg tablet 250 mg PO DAILY 4 Days Qty: 4 0RF Rx Instructions: first dose was given in ER 04/08/24. start on day 2 of therapy cefdinir 300 mg capsule 300 mg PO BID Qty: 20 0RF hydromorphone 2 mg tablet 4 mg PO Q4H PRN (Reason: pain) hydroxyurea (sickle cell) 1,000 mg PO BID folic acid 2 tab PO DAILY Rx Instructions: 2mg Follow Up/Referrals: Provider,Not a Local [Primary Care Provider] - Stand Alone Forms: [employer] Info Instructions
== END 2024-04-11 14:07 | disposition home or self-care (01) ==
PROVIDERS: Emergency Provider Family Medicine
DX: D57.00 Hb-SS disease with crisis, unspecified (principal); Z76.5 Malingerer [conscious simulation]
CPT/HCPCS: 99282; 99283; 99284

== ENCOUNTER 2024-06-21 22:12 | Emergency (ER) | payer BC, SELFPAY ==
--- OUTSIDE RECORDS SUMMARY | 2024-06-21 22:14 | XMS_ITS | Clinical Summary ---
Author Organization [employer] [facility] Address [address] [place] [id number] Care Team Providers Care Medicaid Service Coordinator Name Role Phone Veronica Joseph MD Primary Care Provider [phone] Allergies Active Allergy Reactions Criticality Noted Date Comments Acetaminophen Hives Unknown 05/16/2019 Banana Anaphylaxis,Hives,Th roat Swelling/Closing High 06/25/2019 Cashew Nut Hives Unknown 03/11/2024 Ketorolac Anaphylaxis,Hives High 04/23/2021 Latex Hives,Rash High 09/15/2022 Morphine Hives,Other - Descri be In Comment Field,Seizures High 05/22/2019 Seizure. Other opioids tolerated. Tramadol Hives High 12/05/2021 Tree Nuts Anaphylaxis,Hives High 02/03/2022 Medications ondansetron (ZOFRAN ODT) 4 mg disintegrating tabletIndications: Nausea Place 2 Tablets (8 mg) on the tongue every 8 hours if needed for Nausea/Vomiting for up to 6 doses. 6 Tablet 03/13/20 24 Active folic acid 1 mg tablet Take 2 Tablets by mouth once daily. 12/10/19 24 Active Multivitamin Cmb No.21-Iron-FA 18-400 mg-mcg tab Take 1 Tablet by mouth once daily. Active naloxone (Narcan) 4 mg/actuation nasal sprayIndications:S ickle cell pain crisis (HC) Inhale 1 Huntington into affected nostril(s) each time if needed for Patient Diff To Arouse or Resp Rate < 8 / min (Overdose). Additional doses may be given every 2 to 3 minutes until emergency medical assistance arrives. 2 Each 03/22/20 24 Active hydroxyurea (HYDREA) 500 mg capsule Take 1,000 mg by mouth two times daily. Active hydroxyurea (HYDREA) 500 mg capsuleIndications :Sickle cell pain crisis (HC) Take 2 Capsules (1,000 mg) by mouth two times daily. 03/30/20 24 Active HYDROmorphone 4 mg tabletIndications: Uncomplicated opioid dependence (HC),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 (HC),Sickle cell pain crisis (HC) Take 1 Tablet (4 mg) by mouth every 4 hours if needed for Pain. 10 Tablet 5 2:58 PM FILEN[employer] P[employer] DEVELOPER 04/27/19 25 Active folic acid 1 mg tablet Take 1 tablet (1 mg) by mouth daily. 30 Tablet 5 1:41 PM FILENET P8 DEVELOPER 05/01/19 25 Active hydroxyurea (HYDREA) 500 mg capsule Take 2 capsules (1,000 mg) by mouth 2 times daily 120 Capsule 05/01/19 25 Active multivitamin with folic acid 0.4 mg (Thera) Take 1 tablet by mouth daily. 30 Tablet 11 5 10:39 AM FILENET P8 DEVELOPER 05/01/19 25 Active amoxicillin-clavul anate (AUGMENTIN) 875-125 mg tablet Take 1 tablet by mouth 2 times daily for 7 days. 14 Tablet 5 10:39 AM FILENET P8 DEVELOPER 05/08/19 25 Active doxycycline hyclate 100 mg capsule Take 1 capsule (100 mg) by mouth 2 times daily for 7 days. 14 Capsule 5 10:39 AM FILENET P8 DEVELOPER 05/08/19 25 Active HYDROmorphone 4 mg tablet Take 1 Tablet (4 mg) by mouth every 6 hours if needed for severe pain. 30 Tablet 5 1:04 PM FILENET P8 DEVELOPER 05/09/19 25 Active FLUoxetine (PROZAC) 10 mg capsule Take 1 capsule (10 mg) by mouth daily. 40 Capsule 1 5 3:26 PM FILENET P8 DEVELOPER 05/29/19 25 Active naloxone (NARCAN) 4 mg/actuation nasal spray Huntington 1 spray (4 mg) into one nostril alternating nostrils as needed for opioid reversal (for opiate overdose if not breathing and unconscious. have your family member watch video on how to use/read information sheet). every 2-3 minutes until assistance arrives 2 Each 06/06/19 25 Active HYDROmorphone 2 mg tablet Take 2 tablets (4 mg) by mouth every 6 hours as needed for severe pain. 40 Tablet 5 11:11 AM FILENET P8 DEVELOPER 06/15/19 25 Active HYDROmorphone 2 mg tablet Take 2 tablets (4 mg) by mouth every 6 hours as needed for severe pain. 30 Tablet 5 4:42 PM FILENET P8 DEVELOPER 05/24/19 25 025 Discontin ued(Reord er (E-cancel not sent)) HYDROmorphone 2 mg tablet Take 2 tablets (4 mg) by mouth every 6 hours as needed for severe pain. 40 Tablet 5 3:26 PM FILENET P8 DEVELOPER 05/29/19 25 025 Discontin ued(Reord er (E-cancel not sent)) HYDROmorphone 2 mg tablet Take 2 tablets (4 mg) by mouth every 6 hours as needed for severe pain. 40 Tablet 5 4:27 PM FILENET P8 DEVELOPER 06/07/19 25 025 Discontin ued(Reord er (E-cancel not sent)) Active Problems Problem Noted Date Diagnosed Date Uncomplicated opioid dependence 04/11/2024 Sickle cell crisis 03/17/2024 Sickle cell anemia 03/16/2024 Overview (03/29/2024): HEMOGLOBIN (g/dL) Date Value 03/29/2024 7.7 (L) Sickle cell pain crisis 03/16/2024 Bilateral pneumonia 03/16/2024 Resolved Problems Problem Noted Date Diagnosed Date Resolved Date Chest pain 03/16/2024 03/16/2024 Encounters Date Type Department Care Team Description 06/11/2024 1:08 AM FILEN[employer] P8 DEVELOPER - 06/11/2024 3:[address] [facility] Emergency [facility] [address] [place] [address] Juan Kunz, Sickle cell pain crisis (HC) (Primary Dx) Discharge Disposition: Home Self Care 06/11/2024 Travel 06/06/2024 Refill [facility] [address] [place] [address] Veronica Joseph MD Refill Request 06/03/2024 11:37 AM FILENET P8 DEVELOPER - 06/03/2024 2:[address] [address] Ben Swan MD Viral syndrome (Primary Dx) Discharge Disposition: Home Self Care 06/03/2024 Travel 05/29/2024 1:53 PM FILEN[employer] P[employer] DEVELOPER - 05/29/2024 2:[address] [address] Ana Pacheco MD Sickle cell pain crisis (HC) (Primary Dx) Discharge Disposition: Home Self Care 05/29/2024 Travel 05/21/2024 10:35 AM FILENET P8 DEVELOPER - 05/21/2024 2:[address] [address] Juliana Gil DO Sickle cell disease with crisis (HC) (Primary Dx); Diffuse pain Discharge Disposition: Home Self Care 05/21/2024 Travel 05/18/2024 2:12 AM FILEN[employer] P[employer] DEVELOPER - 05/18/2024 4:[address] [address] Onesimo Gaviria MD Sickle cell pain crisis (HC) (Primary Dx) Discharge Disposition: Home Self Care 05/18/2024 Travel 05/17/2024 Telephone [facility] [address] [place] [address] Veronica Joseph MD Questions (HEALTH STATUS ) 05/10/2024 Telephone [facility] [address] [place] [phone] Veronica Joseph MD Follow Up 05/07/2024 5:53 PM FILEN[employer] P[employer] DEVELOPER - 05/07/2024 8:[address] [address] Caryn Downs MD Sickle cell anemia with pain (HC) (Primary Dx); RUQ abdominal pain Discharge Disposition: Home Self Care 05/07/2024 Travel 05/03/2024 10:59 PM FILEN[employer] P8 DEVELOPER - 05/04/2024 2:[address] [address] Anika Mccracken MD Discharge Disposition: Home Self Care 05/03/2024 Travel 05/02/2024 10:15 AM FILEN[employer] P[employer] DEVELOPER - 05/02/2024 12:[address] [address] Juan Kunz DO Sickle cell pain crisis (HC) (Primary Dx) Discharge Disposition: Home Self Care 05/02/2024 Travel 04/27/2024 Telephone [facility] [address] [place] [address] Veronica Joseph MD 04/27/2024 Refill [facility] [address] [place] [address] Veronica Joseph MD Refill Request (HYDROmorphone 4 mg tablet ) 04/24/2024 1:31 AM FILEN[employer] P8 DEVELOPER - 04/24/2024 4:[address] [address] Onesimo Gaviria MD Sickle cell pain crisis (HC) (Primary Dx); Community acquired pneumonia, unspecified laterality Discharge Disposition: Home Self Care 04/24/2024 Refill [facility] [address] [place] [phone] Veronica Joseph MD Refill Request (HYDROmorphone 4 mg tablet ) 04/24/2024 Travel 04/22/2024 1:40 PM FILEN[employer] P[employer] DEVELOPER - 04/22/2024 5:[address] [place] [address] Shauna Flaherty PA Sickle cell pain crisis (HC) (Primary Dx) Discharge Disposition: Home Self Care 04/22/2024 Travel 04/20/2024 3:40 PM FILEN[employer] P[employer] DEVELOPER - 04/20/2024 6:[address] [address] Maria Teresa Haider PA Left hip pain (Primary Dx) Discharge Disposition: Home Self Care 04/20/2024 Travel 04/20/2024 Telephone [facility] [address] [place] [address] Veronica Joseph MD 04/20/2024 Refill [facility] [address] [place] [address] Veronica Joseph MD Refill Request (HYDROmorphone 4 mg tablet) 04/19/2024 7:18 PM FILEN[employer] P[employer] DEVELOPER - 04/19/2024 9:[address] [address] Maria Teresa Haider PA Closed right hip fracture, initial encounter (HC) (Primary Dx); Avascular necrosis of bone of right hip (HC); Sickle cell pain crisis (HC) Discharge Disposition: Home Self Care 04/19/2024 Travel 04/18/2024 3:51 AM FILEN[employer] P[employer] DEVELOPER - 04/18/2024 5:[address] [address] Elizabeth Duffy MD Left hip pain (Primary Dx); Sickle cell disease with crisis (HC) Discharge Disposition: Home Self Care 04/17/2024 10:36 AM FILEN[employer] P8 DEVELOPER - 04/17/2024 12:[address] [address] Juhi Hull PA Left hip pain (Primary Dx); Sickle cell pain crisis (HC) Discharge Disposition: Home Self Care 04/17/2024 Travel 04/15/2024 5:33 PM FILEN[employer] P[employer] DEVELOPER - 04/15/2024 10:24 PM [employer] DEVELOPER [address] [address] Kathy Contreras MD Sickle cell pain crisis (HC) (Primary Dx) Discharge Disposition: Home Self Care 04/15/2024 Travel 04/11/2024 9:55 AM FILEN[employer] P8 DEVELOPER Office Visit [facility] [address] [place] [address] Veronica Joseph MD Follow Up (Sickle Cell) 04/11/2024 Travel 04/08/2024 6:17 PM FIL[employer] P[employer] DEVELOPER - 04/08/2024 8:[address] [address] Ana Pacheco MD Sickle cell pain crisis (HC) (Primary Dx) Discharge Disposition: Home Self Care 04/08/2024 Travel 04/06/2024 8:27 PM FIL[employer] P[employer] DEVELOPER - 04/06/2024 10:[address] [address] Tanmay Olivares PA Biliary colic (Primary Dx) Discharge Disposition: Home Self Care 04/06/2024 Travel 04/04/2024 6:29 PM FIL[employer] P[employer] DEVELOPER - 04/04/2024 10:[address] [address] Juhi Patel PA Sickle cell anemia with pain (HC) (Primary Dx); Opioid use Discharge Disposition: Home Self Care 04/04/2024 Travel 04/02/2024 3:52 PM FIL[employer] P[employer] DEVELOPER - 04/02/2024 6:[address] [address] Sabrina Ulrich PA Roy, David William, MD Sickle cell pain crisis (HC) (Primary Dx); Multiple pulmonary nodules Discharge Disposition: Home Self Care 04/02/2024 Travel 03/31/2024 Patient Outreach [facility] [address] [place] [address] Lavinia Owens, SOFIA Primary RN Care Management (LACE: 48); Hospital F/U (Diagnosis: Sickle cell pain crisis (HC) DOD: 03/30/24) 03/28/2024 7:19 PM FILEN[employer] P8 DEVELOPER - 03/30/2024 9:[address] [facility] Emergency [address] [address] Onesimo Gaviria MD Qadri, Ghaziuddin Ahmed, MBBS Fuchs, Kurt Richard, MD Sickle cell pain crisis (HC) (Primary Dx) Discharge Disposition: Home Self Care 03/28/2024 12:19 AM FILEN[employer] P8 DEVELOPER - 03/28/2024 4:[address] [facility] Emergency [address] [address] Mor Ramsey MD Sickle cell disease with crisis (HC) (Primary Dx); Chest pain, unspecified type Discharge Disposition: Home Self Care 03/28/2024 Telephone [facility] [address] [place] [address] Veronica Joseph MD Medication Management (HYDROmorphone 2 mg tablet) 03/28/2024 Travel 03/24/2024 12:36 PM FILEN[employer] P[employer] DEVELOPER - 03/24/2024 3:[address] [address] Juhi Patel PA Sickle cell pain crisis (HC) (Primary Dx) Discharge Disposition: Home Self Care 03/24/2024 Travel 03/24/2024 Telephone [facility] [address] [place] [address] Veronica Joseph MD Medication Management; Refill Request (hydromorphone) 03/23/2024 5:04 PM FILEN[employer] P[employer] DEVELOPER - 03/23/2024 7:59 PM [employer]EL[employer] Emergency [address] [address] Ben Swan MD Sickle cell pain crisis (HC) (Primary Dx) Discharge Disposition: Home Self Care 03/23/2024 Travel 03/22/2024 3:10 PM [employer] DEVELOPER [facility] [address] [place] [address] Veronica Joseph MD Hospital F/U (Sickle Cell) 03/22/2024 Telephone [facility] [address] [place] [address] Veronica Joseph MD Medication Management (HYDROmorphone 4 mg tablet//) 03/21/2024 4:40 PM FILEN[employer] P[employer] DEVELOPER - 03/21/2024 7:56 PM [employer]EL[employer] Emergency [address] [address] Shauna Flaherty PA Sickle cell pain crisis (HC) (Primary Dx) Discharge Disposition: Home Self Care 03/21/2024 Travel from Last 3 Months Immunizations Name Administration Dates Next Due COVID-19 VACCINE SPIKEVAX (M ODERNA 50MCG/0.5ML) 12YO+ PFS 03/26/2023 COVID-19 vaccine (Moderna 100mcg/0.5mL) PF, MDV 05/21/2021,06/07/2020,05/10/2020 COVID-19 vaccine (Pfizer-Bio NTech 30mcg/0.3mL) PF, MDV 02/27/2021,02/06/2021 DTaP 11/20/1999, 9,11/13/1995,10/05,03/08/1995,1994,1994 ,1994,1994 Hepatitis A (Peds) 10/03/2008,04/13/2007 Hepatitis A (Peds),Unspecified 08/31/2008,2007 Hepatitis B (Peds) 03/28/2008, 5,1994,04/11 Hepatitis B, Unspecified 06/07/1995,1994,0 1994 Hib Conjugate, Unspecified 11/13/1995,,1994,10/17,1994,1994 Human Papilloma Virus Vaccine 01/24/2009 ,10/03/2008,03/28/2008,12/01,06/16/2007,04/13/2007 INFLUENZA, IIV3 PF (AGE >= 6 MO) 02/09/2012,03/26 Inactivated Polio Vaccine 11/20/1999,,1994,08/01,1994 Influenza A (H1N1), Inactivated 05/30/2009 Influenza Virus, Unspecified 03/03/2023,03/07/20 08 Influenza, IIV3 (Age >=3 years) 02/04/2010,02/08,02/21/2005 Influenza, IIV4 01/15/2023,03/14/2020 MMR 07/18/1998,03/08/1995 Meningococcal Vaccine (Menactra) 04/13/2011,09/24,01/18/2007 Polio Virus, Unspecified 07/18/1998,02/24,1994,10/14 Tdap 01/18/2007 Varicella Vaccine 11/18/2007, 7,01/14/1998,01/02 Social History Tobacco Use Types Packs/Day Years Used Date Smoking Tobacco: Never Passive Smoke Exposure: Never Smokeless Tobacco: Never Tobacco Cessation:Counseling Given: Not Answered Alcohol Use Standard Drinks/Week Comments Never 0 (1 standard drink = 0.6 oz pur e alcohol) PHQ-2 Answer Date Recorded PHQ-2 TOTAL SCORE 1 04/11/2024 Social Connections Answer Date Recorded Do you often feel lonely or isolated from those around you? 0 03/28/2024 Financial Resource Strain Answer Date R ecorded Difficulty of Paying Living Expenses 3 03/16/2024 Difficulty of Paying Living Expenses Not on file 03/16/2024 Food Insecurity Answer Date Recorded Do you worry your food will run out before you are able to buy more? 1 03/28/2024 Transportation Needs Answer Date Record ed Does lack of transportation keep you from medica l appointments? 1 03/28/2024 Does lack of transportation keep you from work, meetings or getting things that you need? 1 03/28/2024 Housing Stability Answer Date Recorded What is your housing situation today? 1 03/28/2024 Interpersonal Safety Answer Date Record ed Are you being hit, kicked, p ushed or yelled at (see row info)? No 06/11/2024 Interpersonal Safety Abuse 12 - 18 Not on file 06/11/2024 Interpersonal Safety Ambulatory Vulnerability No t on file 06/11/2024 Utilities Answer Date Recorded Do you have trouble paying f or utilities (for example, heat, electricity, water, phone)? 1 03/28/2024 Comments No Sex and Gender Information Value Date Recorded Sex Assigned at Not on file Legal Sex Female 8:18 PM [employer] P[employer] DEVELOPER Gender Identity Not on file Sexual Orientation Not on file Obstetrics History Last Filed Vital Signs Vital Sign Reading Time Taken Comments Blood Pressure 121/73 06/11/2024 3:30 AM FIL[employer] P8 DEVELOPER Pulse 93 06/11/2024 3:30 AM [employer] DEVELOPER Temperature 36.6 C (97.9 F) 06/11/2024 1:12 AM FIL[employer] P8 DEVELOPER Respiratory Rate 18 06/11/2024 3:00 AM FIL[employer] P8 DEVELOPER Oxygen Saturation 95% 06/11/2024 3:30 AM [employer] P8 DEVELOPER Inhaled Oxygen Concentration - - Weight 51.7 kg (114 lb) 06/11/2024 1:10 AM [employer] P8 DEVELOPER Height 154.9 cm (5' 1) 06/11/2024 1:10 AM [employer] P8 DEVELOPER Body Mass Index 21.54 06/11/2024 1:10 AM FILEN[employer] P8 DEVELOPER Plan of Treatment Health Maintenance Due Date Last Done Comments HIV for age 15-65 2009 Hepatitis C screening for ag e 18-79 2012 Pneumococcal series for age 6-49 (1 of 2 - PCV) 2013 Tetanus booster 01/18/2017 01/18/2007 COVID-19 vaccine series ( season) 2023 03/26/2023, 05/21/2021, 02/27/2021, Additional history exists Influenza for age 9-49 12/26/2023 3, 01/15/2023, 03/14/2020, Additional history exists Pap test for age 21-65 01/06/2025 2 (Verified in Care Everywhere or Patient Record) BMI (ht and wt on same day) for age 18+ 04/11/2025 04/11/2024 Depression screening for age 12+ 04/11/2025 04/11/20 24 Tdap Completed 01/18/2007 Procedures Procedure Name Priority Date/Time Associated Diagnosis Comments CBC WITH AUTO DIFFERENTIAL STAT 06/03/2024 12:51 PM FILEN[employer] P8 DEVELOPER INFLUENZA A/B PCR Today 06/03/2024 12: 51 PM [employer] P8 DEVELOPER COVID-19 MOLECULAR Today 06/03/2024 12 :51 PM FIL[employer] P8 DEVELOPER BASIC METABOLIC PANEL STAT 06/03/2024 12:51 PM [employer] P8 DEVELOPER CBC WITH AUTO DIFFERENTIAL STAT 06/03/2024 12:51 PM FIL[employer] P8 DEVELOPER XR CHEST 2 VIEWS PA AND LATERAL STAT 06/03/2024 12:34 PM FIL[employer] P8 DEVELOPER EKG 12 LEAD STAT 06/03/2024 11:48 AM FIL[employer] P8 DEVELOPER HEMOGLOBIN STAT 05/29/2024 2:23 PM FILEN[employer] P8 DEVELOPER EKG 12 LEAD STAT 05/29/2024 2:03 PM FIL[employer] P8 DEVELOPER EKG 12 LEAD STAT 05/21/2024 10:19 AM FIL[employer] P8 DEVELOPER RED CELL MORPHOLOGY STAT 05/07/2024 6 :20 PM [employer] P8 DEVELOPER PLATELET ESTIMATE STAT 05/07/2024 6:2 0 PM [employer] P8 DEVELOPER RETICULOCYTES STAT 05/07/2024 6:20 PM [employer] P8 DEVELOPER LIPASE STAT 05/07/2024 6:20 PM [employer] P8 DEVELOPER HEPATIC FUNCTION PANEL STAT 6:20 PM FIL[employer] P8 DEVELOPER BASIC METABOLIC PANEL STAT 05/07/2024 6:20 PM FIL[employer] P8 DEVELOPER CBC W PLT NO DIFF STAT 05/07/2024 6:2 [address] CHEST PE STUDY STAT 05/04/2024 1:4 6 AM FIL[employer] P8 DEVELOPER RETICULOCYTES STAT 05/04/2024 12:24 AM FIL[employer] P8 DEVELOPER URINE Today 05/04/2024 12:07 AM FILEN[employer] P8 DEVELOPER UA W/ SEDIMENT EXAM REFLEXED PER CRITERIA Today 05/04/2024 12:07 AM FIL[employer] P8 DEVELOPER CWS PATH REVIEW HEMATOLOGY STAT 05/03/2024 11:52 PM [employer] P8 DEVELOPER RED CELL MORPHOLOGY STAT 05/03/2024 1 1:52 PM [employer] P8 DEVELOPER PLATELET ESTIMATE STAT 05/03/2024 11: 52 PM [employer] P8 DEVELOPER MANUAL DIFFERENTIAL STAT 05/03/2024 1 1:52 PM [employer] P8 DEVELOPER CBC WITH AUTO DIFFERENTIAL STAT 05/03/2024 11:52 PM [employer] P8 DEVELOPER D-DIMER,QUANTITATIVE STAT 05/03/2024 11:52 PM [employer] P8 DEVELOPER HEPATIC FUNCTION PANEL STAT 11:52 PM FIL[employer] P8 DEVELOPER BASIC METABOLIC PANEL STAT 05/03/2024 11:52 PM FIL[employer] P8 DEVELOPER CBC WITH AUTO DIFFERENTIAL STAT 05/03/2024 11:52 PM FILEN[employer] P8 DEVELOPER EKG 12 LEAD STAT 05/03/2024 11:48 PM [employer] P8 DEVELOPER INFLUENZA A/B PCR Today 05/02/2024 10: 20 AM FIL[employer] P8 DEVELOPER COVID-19 MOLECULAR Today 05/02/2024 10 :20 AM FIL[employer] P8 DEVELOPER CBC WITH AUTO DIFFERENTIAL SULEMA 04/24/2024 2:16 AM [employer] P8 DEVELOPER RETICULOCYTES Early AM 04/24/2024 2:16 AM FIL[employer] P8 DEVELOPER CBC WITH AUTO DIFFERENTIAL SULEMA 04/24/2024 2:16 AM [employer] P8 DEVELOPER BASIC METABOLIC PANEL SULEMA 04/24/2024 2:16 AM FILEN[employer] P8 DEVELOPER XR CHEST 2 VIEWS PA AND LATERAL STAT 04/24/2024 1:58 AM FILEN[employer] P8 DEVELOPER EKG 12 LEAD SULEMA 04/24/2024 1:38 AM FILEN[employer] P8 DEVELOPER RETICULOCYTES STAT 04/22/2024 2:21 PM [employer] P8 DEVELOPER BASIC METABOLIC PANEL STAT 04/22/2024 2:21 PM FILEN[employer] P8 DEVELOPER CBC W PLT NO DIFF STAT 04/22/2024 2:2 1 PM FILEN[employer] P8 DEVELOPER XR CHEST 2 VIEWS PA AND LATERAL STAT 04/22/2024 1:18 PM FILENET P8 DEVELOPER EKG 12 LEAD STAT 04/22/2024 1:06 PM FILENET P8 DEVELOPER TYPE & SCREEN STAT 04/20/2024 4:43 PM [employer] P8 DEVELOPER RED CELL MORPHOLOGY STAT 04/20/2024 4 :43 PM FILEN[employer] P8 DEVELOPER PLATELET ESTIMATE STAT 04/20/2024 4:4 3 PM FIL[employer] P8 DEVELOPER MANUAL DIFFERENTIAL STAT 04/20/2024 4 :43 PM FILEN[employer] P8 DEVELOPER CBC WITH AUTO DIFFERENTIAL STAT 04/20/2024 4:43 PM [employer]EN[employer] P8 DEVELOPER RETICULOCYTES STAT 04/20/2024 4:43 PM FILENET P8 DEVELOPER CBC WITH AUTO DIFFERENTIAL STAT 04/20/2024 4:43 PM FILEN[employer] P8 DEVELOPER BASIC METABOLIC PANEL STAT 04/20/2024 4:25 PM FILEN[employer] P8 DEVELOPER XR ANKLE 3 VIEWS LEFT STAT 04/18/2024 5:09 AM FILEN[employer] P8 DEVELOPER C-REACTIVE PROTEIN STAT 04/18/2024 4: 59 AM FILEN[employer] P8 DEVELOPER BASIC METABOLIC PANEL STAT 04/18/2024 4:59 AM FILENET P8 DEVELOPER SEDIMENTATION RATE STAT 04/18/2024 4: 58 AM FILENET P8 DEVELOPER CBC WITH AUTO DIFFERENTIAL STAT 04/18/2024 4:58 AM FILENET P8 DEVELOPER RETICULOCYTES STAT 04/18/2024 4:58 AM FILENET P8 DEVELOPER CBC WITH AUTO DIFFERENTIAL STAT 04/18/2024 4:58 AM FILENET P8 DEVELOPER RED CELL MORPHOLOGY STAT 04/17/2024 1 0:50 AM FILENET P8 DEVELOPER PLATELET ESTIMATE STAT 04/17/2024 10: 50 AM FILEN[employer] P8 DEVELOPER C-REACTIVE PROTEIN SULEMA 04/17/2024 10 :50 AM FILENET P8 DEVELOPER SEDIMENTATION RATE SULEMA 04/17/2024 10 :50 AM FILENET P8 DEVELOPER CBC W PLT NO DIFF STAT 04/17/2024 10: 50 AM FILENET P8 DEVELOPER BASIC METABOLIC PANEL STAT 04/17/2024 10:50 AM FILENET P8 DEVELOPER RETICULOCYTES STAT 04/17/2024 10:50 AM FILENET P8 DEVELOPER XR HIP 2 OR 3 VIEWS W PELVIS LEFT STAT 04/15/2024 6:34 PM FILENET P8 DEVELOPER TYPE & SCREEN STAT 04/15/2024 6:10 PM FILEN[employer] P8 DEVELOPER RED CELL MORPHOLOGY STAT 04/15/2024 6 :10 PM FILENET P8 DEVELOPER PLATELET ESTIMATE STAT 04/15/2024 6:1 0 PM FILEN[employer] P8 DEVELOPER C-REACTIVE PROTEIN STAT 04/15/2024 6: 10 PM FILENET P8 DEVELOPER SEDIMENTATION RATE STAT 04/15/2024 6: 10 PM FILEN[employer] P8 DEVELOPER CBC WITH AUTO DIFFERENTIAL STAT 04/15/2024 6:10 PM FILENET P8 DEVELOPER BASIC METABOLIC PANEL STAT 04/15/2024 6:10 PM FILENET P8 DEVELOPER RETICULOCYTES STAT 04/15/2024 6:10 PM FILENET P8 DEVELOPER CBC WITH AUTO DIFFERENTIAL STAT 04/15/2024 6:10 PM FILENET P8 DEVELOPER RED CELL MORPHOLOGY Timed 04/08/2024 8 :27 PM FILENET P8 DEVELOPER PLATELET ESTIMATE Timed 04/08/2024 8:2 7 PM FILENET P8 DEVELOPER RETICULOCYTES Early AM 04/08/2024 8:27 PM FILENET P8 DEVELOPER CBC W PLT NO DIFF Early AM 04/08/2024 8:2 7 PM FILENET P8 DEVELOPER XR CHEST 2 VIEWS PA AND LATERAL STAT 04/08/2024 7:28 PM FILENET P8 DEVELOPER BASIC METABOLIC PANEL STAT 04/08/2024 7:05 PM FILENET P8 DEVELOPER EKG 12 LEAD STAT 04/08/2024 5:50 PM FILENET P8 DEVELOPER US ABDOMEN LIMITED GALLBLADDER STAT 04/06/2024 9:38 PM FILENET P8 DEVELOPER CBC WITH AUTO DIFFERENTIAL STAT 04/06/2024 8:55 PM FILENET P8 DEVELOPER RETICULOCYTES STAT 04/06/2024 8:55 PM FILENET P8 DEVELOPER LIPASE STAT 04/06/2024 8:55 PM FILENET P8 DEVELOPER COMP METABOLIC PANEL STAT 04/06/2024 8:55 PM FILENET P8 DEVELOPER CBC WITH AUTO DIFFERENTIAL STAT 04/06/2024 8:55 PM FILENET P8 DEVELOPER XR CHEST 2 VIEWS PA AND LATERAL STAT 04/04/2024 7:28 PM FILENET P8 DEVELOPER RED CELL MORPHOLOGY STAT 04/04/2024 6 :54 PM FILENET P8 DEVELOPER PLATELET ESTIMATE STAT 04/04/2024 6:5 4 PM FILENET P8 DEVELOPER MANUAL DIFFERENTIAL STAT 04/04/2024 6 :54 PM FILENET P8 DEVELOPER TROPONIN T (HS) ACUTE W/2HR REFLEX SULEMA 04/04/2024 6:54 PM FILEN[employer] P8 DEVELOPER CBC WITH AUTO DIFFERENTIAL STAT 04/04/2024 6:54 PM FILENET P8 DEVELOPER RETICULOCYTES STAT 04/04/2024 6:54 PM FILENET P8 DEVELOPER BASIC METABOLIC PANEL STAT 04/04/2024 6:54 PM FILENET P8 DEVELOPER CBC WITH AUTO DIFFERENTIAL STAT 04/04/2024 6:54 PM FILENET P8 DEVELOPER EKG 12 LEAD STAT 04/04/2024 6:45 PM FILENET P8 DEVELOPER XR CHEST 2 VIEWS PA AND LATERAL STAT 04/02/2024 4:42 PM FILENET P8 DEVELOPER EKG 12 LEAD STAT 04/02/2024 4:24 PM FILENET P8 DEVELOPER RED CELL MORPHOLOGY STAT 04/02/2024 4 :21 PM FILENET P8 DEVELOPER PLATELET ESTIMATE STAT 04/02/2024 4:2 1 PM FILENET P8 DEVELOPER CBC WITH AUTO DIFFERENTIAL STAT 04/02/2024 4:21 PM FILENET P8 DEVELOPER RETICULOCYTES STAT 04/02/2024 4:21 PM FILENET P8 DEVELOPER BASIC METABOLIC PANEL STAT 04/02/2024 4:21 PM FILENET P8 DEVELOPER CBC WITH AUTO DIFFERENTIAL STAT 04/02/2024 4:21 PM FILENET P8 DEVELOPER SODIUM Early AM 03/30/2024 8:15 AM FILEN[employer] P8 DEVELOPER CREATININE Early AM 03/30/2024 8:15 AM FILEN[employer] P8 DEVELOPER POTASSIUM Early AM 03/30/2024 8:15 AM FILEN[employer] P8 DEVELOPER PLATELET COUNT Early AM 03/30/2024 8:15 AM FILENET P8 DEVELOPER WHITE BLOOD COUNT Early AM 03/30/2024 8:1 5 AM [employer] DEVELOPER HEMOGLOBIN Early AM 03/30/2024 8:15 AM [employer] DEVELOPER WHITE BLOOD COUNT Early AM 03/29/2024 5:4 4 AM [employer] P[employer] DEVELOPER BILIRUBIN,TOTAL Early AM 03/29/2024 5:44 AM [employer] DEVELOPER PLATELET COUNT Early AM 03/29/2024 5:44 AM [employer] P[employer] DEVELOPER HEMOGLOBIN Early AM 03/29/2024 5:44 AM [employer] P[employer] DEVELOPER RETICULOCYTES Early AM 03/29/2024 5:44 AM [employer] P8 DEVELOPER BILIRUBIN,TOTAL/DIRECT SULEMA 7:53 PM FILENET P8 DEVELOPER RED CELL MORPHOLOGY SULEMA 03/28/2024 7 :53 PM FILENET P8 DEVELOPER PLATELET ESTIMATE SULEMA 03/28/2024 7:5 3 PM FILENET P8 DEVELOPER MANUAL DIFFERENTIAL SULEMA 03/28/2024 7 :53 PM FILENET P8 DEVELOPER CBC WITH AUTO DIFFERENTIAL SULEMA 03/28/2024 7:53 PM FILENET P8 DEVELOPER CBC WITH AUTO DIFFERENTIAL SULEMA 03/28/2024 7:53 PM FILENET P8 DEVELOPER BASIC METABOLIC PANEL SULEMA 03/28/2024 7:53 PM FILENET P8 DEVELOPER BLOOD CULTURE STAT 03/28/2024 2:17 AM FILENET P8 DEVELOPER PROCALCITONIN STAT 03/28/2024 2:06 AM FILENET P8 DEVELOPER BLOOD CULTURE STAT 03/28/2024 2:06 AM FILENET P8 DEVELOPER XR CHEST 2 VIEWS PA AND LATERAL STAT 03/28/2024 1:17 AM FILENET P8 DEVELOPER C-REACTIVE PROTEIN SULEMA 03/28/2024 12 :53 AM FILENET P8 DEVELOPER BASIC METABOLIC PANEL STAT 03/28/2024 12:53 AM FILENET P8 DEVELOPER RETICULOCYTES STAT 03/28/2024 12:53 AM FILENET P8 DEVELOPER CBC W PLT NO DIFF STAT 03/28/2024 12: 53 AM FILENET P8 DEVELOPER EKG 12 LEAD STAT 03/28/2024 12:22 AM FILENET P8 DEVELOPER CBC WITH AUTO DIFFERENTIAL STAT 03/24/2024 1:02 PM FILENET P8 DEVELOPER TROPONIN T (HS) ACUTE W/2HR REFLEX STAT 03/24/2024 1:02 PM FILENET P8 DEVELOPER RETICULOCYTES STAT 03/24/2024 1:02 PM FILENET P8 DEVELOPER BASIC METABOLIC PANEL STAT 03/24/2024 1:02 PM FILENET P8 DEVELOPER CBC WITH AUTO DIFFERENTIAL STAT 03/24/2024 1:02 PM FILENET P8 DEVELOPER EKG 12 LEAD STAT 03/24/2024 12:45 PM FILENET P8 DEVELOPER CBC WITH AUTO DIFFERENTIAL STAT 03/23/2024 5:43 PM FILENET P8 DEVELOPER RETICULOCYTES STAT 03/23/2024 5:43 PM FILENET P8 DEVELOPER CBC WITH AUTO DIFFERENTIAL STAT 03/23/2024 5:43 PM FILENET P8 DEVELOPER RETICULOCYTES STAT 03/21/2024 5:39 PM FILENET P8 DEVELOPER BASIC METABOLIC PANEL STAT 03/21/2024 5:39 PM FILENET P8 DEVELOPER CBC W PLT NO DIFF STAT 03/21/2024 5:3 9 PM FILENET P8 DEVELOPER EKG 12 LEAD STAT 03/21/2024 4:39 PM FILENET P8 DEVELOPER from Last 3 Months Results * COVID-19 MOLECULAR (06/03/2024 12:51 PM FILENET P8 DEVELOPER) Only the most recent of2 resultswithin the time period is included. COVID 19 [facility] Not detected Not detected 06/03/2024 1:18 PM FILENET P8 DEVELOPER [facility] TESTING LABORATORY [facility] 06/03/2024 1:18 PM FILENET P8 DEVELOPER [facility] Comment:Specimen submitted t o [facility] for testing. Other SPECIMEN FROM NASOPHARYNGEAL STRUCTURE / Unknown Non-Blood / Unknown 06/03/2024 12:51 PM FILENET P8 DEVELOPER 06/03/2024 12:54 PM FILENET P8 DEVELOPER us Ben Swan MD MICROBIOLOGY Final Res ult [facility] [address] [place] [address], * INFLUENZA A/B PCR (06/03/2024 12:51 PM FILENET P8 DEVELOPER) Only the most recent of2 resultswithin the time period is included. INFLUENZA A PCR NOT Detected 06/03/2024 1:18 PM FILENET P8 DEVELOPER [facility] INFLUENZA B PCR NOT Detected 06/03/2024 1:18 PM FILENET P8 DEVELOPER [facility] Other SPECIMEN FROM NASOPHARYNGEAL STRUCTURE / Unknown Non-Blood / Unknown 06/03/2024 12:51 PM FILENET P8 DEVELOPER 06/03/2024 12:54 PM FILENET P8 DEVELOPER us Ben Swan MD MICROBIOLOGY Final Res ult [facility] [place] [address], * (ABNORMAL) CBC WITH AUTO DIFFERENTIAL (06/03/2024 12:51 PM FILENET P8 DEVELOPER) Only the most recent of12 resultswithin the time period is included. Pathologist [facility] WHITE BLOOD COUNT 11.0 4.5 - 11.0 thou/cu mm 06/03/2024 1:05 PM FILENET P8 DEVELOPER [facility] RED BLOOD COUNT 2.94(L) 4.00 - 5.20 mil/cu mm 06/03/2024 1:05 PM FILENET P8 DEVELOPER [facility] HEMOGLOBIN 9.3(L) 12.0 - 16.0 g/dL 06/03/2024 1:05 PM FILENET P8 DEVELOPER [facility] HEMATOCRIT 26.9(L) 33.0 - 51.0 % 06/03/2024 1:05 PM [facility] MCV 92 80 - 100 fL 06/03/2024 1:05 PM [facility] MCH 31.6 26.0 - 34.0 pg 06/03/2024 1:05 PM [facility] MCHC 34.6 32.0 - 36.0 g/dL 06/03/2024 1:05 PM FILENET P8 DEVELOPER [facility] RDW 18.9(H) 11.5 - 15.5 % 06/03/2024 1:05 PM FILENET P8 DEVELOPER [facility] PLATELET COUNT 456(H) 140 - 440 thou/cu mm 06/03/2024 1:05 PM [facility] MPV 9.8 6.5 - 11.0 fL 06/03/2024 1:05 PM FILENET P8 DEVELOPER [facility] NRBC 0.6 % 06/03/2024 1:05 PM FILENET P8 DEVELOPER [facility] ABS NRBC 0.1 thou /cu mm 06/03/2024 1:05 PM FILENET P8 DEVELOPER [facility] % NEUT 69.9 % 06/03/2024 1:05 PM FILENET P8 DEVELOPER [facility] % LYMPH 15.1 % 06/03/2024 1:05 PM FILENET P8 DEVELOPER [facility] % MONO 13.4 % 06/03/2024 1:05 PM FILENET P8 DEVELOPER [facility] % EOS 0.2 % 06/03/2024 1:05 PM FILENET P8 DEVELOPER [facility] % BASO 0.9 % 06/03/2024 1:05 PM FILENET P8 DEVELOPER [facility] % IMMATURE GRAN (METAS,MYELOS,VA OS) 0.5 % 06/03/2024 1:05 PM FILENET P8 DEVELOPER [facility] ABSOLUTE NEUTROPHILS 7.7(H) 1.7 - 7.0 thou/cu mm 06/03/2024 1:05 PM FILENET P8 DEVELOPER [facility] ABSOLUTE LYMPHOCYTES 1.7 0.9 - 2.9 thou/cu mm 06/03/2024 1:05 PM FILENET P8 DEVELOPER [facility] ABSOLUTE MONOCYTES 1.5(H) <0.9 thou/cu mm 06/03/2024 1:05 PM FILENET P8 DEVELOPER [facility] ABSOLUTE EOSINOPHILS 0.0 <0.5 thou/cu mm 06/03/2024 1:05 PM FILENET P8 DEVELOPER [facility] ABSOLUTE BASOPHILS 0.1 <0.3 thou/cu mm 06/03/2024 1:05 PM FILENET P8 DEVELOPER [facility] ABSOLUTE IMMATURE GRANULOCYTES(MET ,MYELOS,PROS) 0.1 <0.3 thou/cu mm 06/03/2024 1:05 PM FILENET P8 DEVELOPER [facility] Blood BLOOD SPECIMEN / Unknown IV Start / Unknown 06/03/2024 12:51 PM FILENET P8 DEVELOPER 06/03/2024 12:54 PM FILENET P8 DEVELOPER us Ben Swan MD HEMATOLOGY Final Res ult [facility] [place] [address], * (ABNORMAL) BASIC METABOLIC PANEL (06/03/2024 12:51 PM FILENET P8 DEVELOPER) Only the most recent of16 resultswithin the time period is included. SODIUM 135(L) 136 - 145 mmol/L 06/03/2024 1:13 PM FILENET P8 DEVELOPER [facility] POTASSIUM 4.5 3.5 - 5.1 mmol/L 06/03/2024 1:13 PM FILENET P8 DEVELOPER [facility] CHLORIDE 101 98 - 107 mmol/L 06/03/2024 1:13 PM FILENET P8 DEVELOPER [facility] CO2,TOTAL 21(L) 22 - 29 mmol/L 06/03/2024 1:13 PM FILENET P8 DEVELOPER [facility] ANION GAP 13 5 - 18 06/03/2024 1:13 PM FILENET P8 DEVELOPER [facility] GLUCOSE 100(H) 70 - 99 mg/dL 06/03/2024 1:13 PM FILENET P8 DEVELOPER [facility] CALCIUM 9.6 8.8 - 10.4 mg/dL 06/03/2024 1:13 PM FILENET P8 DEVELOPER [facility] Comment: Reference ranges for this test were updated on 02/29/2024 to reflect our healthy population more accurately. Reference range changes are not retroactively applied to results, but previous results using the same methodology can be interpreted in the context of the new reference range. BUN 12 6 - 20 mg/dL 06/03/2024 1:13 PM FILENET P8 DEVELOPER [facility] CREATININE 0.74 0.50 - 0.90 mg/dL 06/03/2024 1:13 PM FILENET P8 DEVELOPER [facility] BUN/CREAT RATIO 16 10 - 20 1:13 PM FILENET P8 DEVELOPER [facility] eGFR >90 >90 mL/min/1.7 3m2 06/03/2024 1:13 PM FILENET P8 DEVELOPER [facility] Comment:As of 2021, eG FR is calculated by the CKD-EPI creatinine equation without race adjustment. eGFR can be influenced by muscle mass, exercise, and diet. The reported eGFR is an estimation only and is only applicable if the renal function is stable. Blood BLOOD SPECIMEN / Unknown IV Start / Unknown 06/03/2024 12:51 PM FILENET P8 DEVELOPER 06/03/2024 12:54 PM FILENET P8 DEVELOPER us Ben Swan MD CHEMISTRY Final Res ult [facility] [address] [place] [address], * XR CHEST 2 VIEWS PA AND LATERAL (06/03/2024 12:34 PM FILENET P8 DEVELOPER) Only the most recent of7 resultswithin the time period is included. Anatomical Region Laterality Modality CHEST, THORAX, Lung, HEART Compu frank Radiography 06/03/2024 12:3 4 PM FILENET P8 DEVELOPER Impressions 06/03/2024 1:03 PM FILENET P8 DEVELOPER Faintly visible nodularity mid and lower lungs correspond to pulmonary nodules on recent CT. No focal pulmonary consolidation. No pleural effusion. No pneumothorax. Heart size normal. Port anterior right chest wall with right-sided CVC low SVC. In addition, there is a left-sided port anterior left chest wall with left CVC tip also in the low SVC. Narrative 06/03/2024 1:03 PM FILENET P8 DEVELOPER For Patients: As a result of the Cures Act, medical imaging exams and procedure reports are released immediately into your electronic medical record. You may view this report before your referring provider. If you have questions, please contact your health care provider. EXAM: XR CHEST 2 VIEWS PA AND LATERAL LOCATION: [facility] DATE: 06/03/2024 INDICATION: Chest pain. COMPARISON: 05/04/2024 CTA chest and 04/24/2024 CXR. Procedure Note Surendra Hou MD - 06/03/2024 For Patients: As a result of the Cures Act, medical imagingexams and procedure reports are released immediately into your electronicmedical record. You may view this report before your referring provider.If you have questions, please contact your health care provider. EXAM: XR CHEST 2 VIEWS PA AND LATERAL LOCATION: [facility] DATE: 06/03/2024 INDICATION: Chest pain. COMPARISON: 05/04/2024 CTA chest and 04/24/2024 CXR. IMPRESSION: Faintly visible nodularity mid and lower lungs correspond to pulmonarynodules on recent CT. No focal pulmonary consolidation. No pleuraleffusion. No pneumothorax. Heart size normal. Port anterior right chestwall with right-sided CVC low SVC. In addition, there is a left-sided portanterior left chest wall with left CVC tip also in the low SVC. us Ben Swan MD GENERAL IMAGING Final Res ult * EKG 12 LEAD (06/03/2024 11:48 AM FILENET P8 DEVELOPER) Only the most recent of12 resultswithin the time period is included. Interpretation Normal sinus rhythm Nonspecific T wave abnormality Abnormal ECG When compared with ECG of 29-May-2024 14:03, Non-specific change in ST segment in Anterior leads Nonspecific T wave abnormality now evident in Inferior leads Nonspecific T wave abnormality, worse in Anterolateral leads BEYOND NOW Ventricular Rate 96 BPM BEYOND NOW Atrial Rate 96 BPM BEYOND NOW P-R Interval 128 ms BEYOND NOW QRS Duration 72 ms BEYOND NOW QT 360 ms BEYOND NOW QTc 454 ms BEYOND NOW P Lorane 54 degrees BEYOND NOW R Lorane 55 degrees BEYOND NOW T Lorane 31 degrees BEYOND NOW 06/03/2024 11:4 8 AM FILENET P8 DEVELOPER 06/04/2024 3:27 AM FILENET P8 DEVELOPER Narrative [facility] NOW - 06/04/2024 3:27 AM FILENET P8 DEVELOPER Test Indication: chest pain [facility] Triage EKG ORD Final Result [facility] NOW [place], [place] * (ABNORMAL) HEMOGLOBIN (05/29/2024 2:23 PM FILENET P8 DEVELOPER) Only the most recent of3 resultswithin the time period is included. [facility] HEMOGLOBIN 7.1(L) 12.0 - 16.0 g/dL 05/29/2024 2:32 PM FILENET P8 DEVELOPER [facility] MCV 93 80 - 100 fL 05/29/2024 2:32 PM FILENET P8 DEVELOPER [facility] Blood BLOOD SPECIMEN / Unknown IV Start / Unknown 05/29/2024 2:23 PM FILENET P8 DEVELOPER 05/29/2024 2:30 PM FILENET P8 DEVELOPER Ana Pacheco MD HEMATOLOGY Final Result [facility] [address] [place] [address], * (ABNORMAL) RED CELL MORPHOLOGY (05/07/2024 6:20 PM FILENET P8 DEVELOPER) Only the most recent of9 resultswithin the time period is included. [facility] POLYCHROMASIA Moderate 05/07/2024 6:33 PM FILENET P8 DEVELOPER [facility] TARGET CELLS Moderate 05/07/2024 6:33 PM FILENET P8 DEVELOPER [facility] RBC COMMENT Present(A) RBC morphology appears normal, RBC morphology within normal limits for newborns. 05/07/2024 6:33 PM FILENET P8 DEVELOPER [facility] *SICKLE CELLS Present 05/07/2024 6:33 PM FILENET P8 DEVELOPER [facility] Blood BLOOD SPECIMEN / Unknown Butterfly / Unknown 05/07/2024 6:20 PM FILENET P8 DEVELOPER 05/07/2024 6:23 PM FILENET P8 DEVELOPER Caryn Rasmussen MD HEMATOLOGY Final Result Performing Organization Address City/[facility]/ZIP Co de Phone Number [address] [address], [place] [phone] * PLATELET ESTIMATE (05/07/2024 6:20 PM FILENET P8 DEVELOPER) Only the most recent of9 resultswithin the time period is included. PLATELET ESTIMATE Adequate Adequate, No estimate 05/07/2024 6:33 PM FILENET P8 DEVELOPER [facility] Blood BLOOD SPECIMEN / Unknown Butterfly / Unknown 05/07/2024 6:20 PM FILENET P8 DEVELOPER 05/07/2024 6:23 PM FILENET P8 DEVELOPER Caryn Rasmussen MD HEMATOLOGY Final Result [facility] [address] [place] [address], [place] [phone] * (ABNORMAL) CBC W PLT NO DIFF (05/07/2024 6:20 PM FILENET P8 DEVELOPER) Only the most recent of6 resultswithin the time period is included. WHITE BLOOD COUNT 15.6(H) 4.5 - 11.0 thou/cu mm 05/07/2024 6:33 PM FILENET P8 DEVELOPER [facility] RED BLOOD COUNT 2.71(L) 4.00 - 5.20 mil/cu mm 05/07/2024 6:33 PM FILENET P8 DEVELOPER [facility] HEMOGLOBIN 8.7(L) 12.0 - 16.0 g/dL 05/07/2024 6:33 PM FILENET P8 DEVELOPER [facility] HEMATOCRIT 25.4(L) 33.0 - 51.0 % 05/07/2024 6:33 PM FILENET P8 DEVELOPER [facility] MCV 94 80 - 100 fL 05/07/2024 6:33 PM FILENET P8 DEVELOPER [facility] MCH 32.1 26.0 - 34.0 pg 05/07/2024 6:33 PM FILENET P8 DEVELOPER [facility] MCHC 34.3 32.0 - 36.0 g/dL 05/07/2024 6:33 PM FILENET P8 DEVELOPER [facility] RDW 23.3(H) 11.5 - 15.5 % 05/07/2024 6:33 PM FILENET P8 DEVELOPER [facility] PLATELET COUNT 356 140 - 440 thou/cu mm 05/07/2024 6:33 PM FILENET P8 DEVELOPER [facility] MPV 9.8 6.5 - 11.0 fL 05/07/2024 6:33 PM FILENET P8 DEVELOPER [facility] NRBC 2.0 % 05/07/2024 6:33 PM FILENET P8 DEVELOPER [facility] ABS NRBC 0.3 thou /cu mm 05/07/2024 6:33 PM FILENET P8 DEVELOPER [facility] Blood BLOOD SPECIMEN / Unknown Butterfly / Unknown 05/07/2024 6:20 PM FILENET P8 DEVELOPER 05/07/2024 6:23 PM FILENET P8 DEVELOPER Caryn Rasmussen MD HEMATOLOGY Final Result [facility] [address] [place] [address], [place] [phone] * (ABNORMAL) RETICULOCYTES (05/07/2024 6:20 PM FILENET P8 DEVELOPER) Only the most recent of17 resultswithin the time period is included. RETIC% 20.3(H) 0.5 - 1.5 % 05/07/2024 6:34 PM FILENET P8 DEVELOPER [facility] RETIC (ABSOLUTE) 0.55(H) 0.03 - 0.08 mil/cu mm 05/07/2024 6:34 PM FILENET P8 DEVELOPER [facility] Blood BLOOD SPECIMEN / Unknown Butterfly / Unknown 05/07/2024 6:20 PM FILENET P8 DEVELOPER 05/07/2024 6:23 PM FILENET P8 DEVELOPER Caryn Rasmussen MD HEMATOLOGY Final Result [facility] [address] [place] [address], [place] [phone] * LIPASE (05/07/2024 6:20 PM FILENET P8 DEVELOPER) Only the most recent of2 resultswithin the time period is included. LIPASE 35.9 13.0 - 60.0 IU/L 05/07/2024 6:53 PM FILENET P8 DEVELOPER [facility] Blood BLOOD SPECIMEN / Unknown Butterfly / Unknown 05/07/2024 6:20 PM FILENET P8 DEVELOPER 05/07/2024 6:23 PM FILENET P8 DEVELOPER Caryn Rasmussen MD CHEMISTRY Final Result [facility] [address] [place] [address], [place] [phone] * (ABNORMAL) HEPATIC FUNCTION PANEL (05/07/2024 6:20 PM FILENET P8 DEVELOPER) Only the most recent of2 resultswithin the time period is included. ALBUMIN 4.4 4.0 - 4.9 g/dL 05/07/2024 6:53 PM FILENET P8 DEVELOPER [facility] PROTEIN,TOTAL 8.1(H) 6.0 - 8.0 g/dL 05/07/2024 6:53 PM FILENET P8 DEVELOPER [facility] BILIRUBIN,TOTAL 2.2(H) 0.0 - 1.2 mg/dL 05/07/2024 6:53 PM FILENET P8 DEVELOPER [facility] BILIRUBIN,DIRECT 0.9(H) 0.0 - 0.2 mg/dL 05/07/2024 6:53 PM FILENET P8 DEVELOPER [facility] BILIRUBIN,INDIRE CT 1.3(H) 0.2 - 0.8 mg/dL 05/07/2024 6:53 PM FILENET P8 DEVELOPER [facility] ALK PHOSPHATASE 120(H) 35 - 104 IU/L 05/07/2024 6:53 PM FILENET P8 DEVELOPER [facility] ALT (SGPT) 28 10 - 35 IU/L 05/07/2024 6:53 PM FILENET P8 DEVELOPER [facility] AST (SGOT) 46(H) 10 - 35 IU/L 05/07/2024 6:53 PM FILENET P8 DEVELOPER [facility] Blood BLOOD SPECIMEN / Unknown Butterfly / Unknown 05/07/2024 6:20 PM FILENET P8 DEVELOPER 05/07/2024 6:23 PM FILENET P8 DEVELOPER us Caryn Rasmussen MD CHEMISTRY Final Result [facility] [address] [place] [address], * CT CHEST PE STUDY (05/04/2024 1:46 AM FILENET P8 DEVELOPER) Anatomical Region Laterality Modality CHEST, THORAX, HEART Computed To mography 05/04/2024 1:46 AM FILENET P8 DEVELOPER Impressions 05/04/2024 2:01 AM FILENET P8 DEVELOPER 1. No pulmonary embolus. 2. Multiple small bilateral pulmonary nodules and mild enlargement of right hilar lymph nodes not significantly changed from the recent study of 04/06/2024. Differential diagnosis includes inflammatory/infectious and neoplastic etiologies. Narrative 05/04/2024 2:01 AM FILENET P8 DEVELOPER For Patients: As a result of the Cures Act, medical imaging exams and procedure reports are released immediately into your electronic medical record. You may view this report before your referring provider. If you have questions, please contact your health care provider. EXAM: CT CHEST PE STUDY LOCATION: [facility] DATE: 05/04/2024 INDICATION: Pulmonary embolism (PE) suspected, high prob, SOB. History of sickle cell disease. COMPARISON: CTA chest 04/06/2024. Chest radiographs 04/24/2024. TECHNIQUE: CT chest pulmonary angiogram during arterial phase injection of IV contrast. Multiplanar reformats and MIP reconstructions were performed. Dose reduction techniques were used. CONTRAST: IOHEXOL 350 MG IODINE/ML IV 100 ML BOTTLE: 50mL FINDINGS: ANGIOGRAM CHEST: No pulmonary embolus. No aortic dissection or aneurysm. LUNGS AND PLEURA: Multiple small bilateral pulmonary nodules measuring up to 11 mm in size are not significantly changed from the recent study of 04/06/2024. MEDIASTINUM/AXILLAE: Mild enlargement of right hilar lymph nodes unchanged. CORONARY ARTERY CALCIFICATION: None. UPPER ABDOMEN: Normal. MUSCULOSKELETAL: Skeletal sclerosis and slight endplate compression of thoracic vertebral bodies consistent with chronic sequela of sickle cell disease. Procedure Note Jayden Oakes MD - 05/04/2024 For Patients: As a result of the Cures Act, medical imagingexams and procedure reports are released immediately into your electronicmedical record. You may view this report before your referring provider.If you have questions, please contact your health care provider. EXAM: CT CHEST PE STUDY LOCATION: [facility] DATE: 05/04/2024 INDICATION: Pulmonary embolism (PE) suspected, high prob, SOB. History ofsickle cell disease. COMPARISON: CTA chest 04/06/2024. Chest radiographs 04/24/2024. TECHNIQUE: CT chest pulmonary angiogram during arterial phase injection ofIV contrast. Multiplanar reformats and MIP reconstructions were performed.Dose reduction techniques were used. CONTRAST: IOHEXOL 350 MG IODINE/ML IV 100 ML BOTTLE: 50mL FINDINGS: ANGIOGRAM CHEST: No pulmonary embolus. No aortic dissection or aneurysm. LUNGS AND PLEURA: Multiple small bilateral pulmonary nodules measuring upto 11 mm in size are not significantly changed from the recent study of04/06/2024. MEDIASTINUM/AXILLAE: Mild enlargement of right hilar lymph nodesunchanged. CORONARY ARTERY CALCIFICATION: None. UPPER ABDOMEN: Normal. MUSCULOSKELETAL: Skeletal sclerosis and slight endplate compression ofthoracic vertebral bodies consistent with chronic sequela of sickle celldisease. IMPRESSION: 1. No pulmonary embolus. 2. Multiple small bilateral pulmonary nodules and mild enlargement ofright hilar lymph nodes not significantly changed from the recent study of04/06/2024. Differential diagnosis includes inflammatory/infectious andneoplastic etiologies. us Anika Mccracken MD CT Final Resu lt * UA W/ SEDIMENT EXAM REFLEXED PER CRITERIA (05/04/2024 12:07 AM FILENET P8 DEVELOPER) COLOR Yellow Yellow Color 05/04/2024 12:18 AM FILENET P8 DEVELOPER [facility] CLARITY Clear Clear Clarity 05/04/2024 12:18 AM [facility] SPECIFIC GRAVITY,URINE 1.015 1.010, 1.015, 1.020, 1.025 05/04/2024 12:18 AM FILENET P8 DEVELOPER [facility] PH,URINE 7.0 6.0, 7.0, 8.0, 5.5, 6.5, 7.5, 8.5 05/04/2024 12:18 AM [facility] UROBILINOGEN,Q UALITATIVE Normal Normal EU/dl 05/04/2024 12:18 AM [facility] PROTEIN, URINE Negative Negative mg/dL 05/04/2024 12:18 AM FILENET P8 DEVELOPER [facility] GLUCOSE, URINE Negative Negative mg/dL 05/04/2024 12:18 AM FILENET P8 DEVELOPER [facility] KETONES,URINE Negative Negative mg/dL 05/04/2024 12:18 AM FILENET P8 DEVELOPER [facility] BILIRUBIN,URIN E Negative Negative 05/04/2024 12:18 AM FILENET P8 DEVELOPER [facility] OCCULT BLOOD,URINE Negative Negative 05/04/2024 12:18 AM FILENET P8 DEVELOPER [facility] NITRITE Negative Negative 05/04/2024 12:18 AM FILENET P8 DEVELOPER [facility] LEUKOCYTE ESTERASE Negative Negative 05/04/2024 12:18 AM FILENET P8 DEVELOPER [facility] Urine URINE SPECIMEN / Unknown Non-Blood / Unknown 05/04/2024 12:07 AM [employer] P[employer] DEVELOPER 05/04/2024 12:13 AM [employer] P[employer] DEVELOPER Anika Mccracken MD URINE Final Resu lt [facility] [address] [place] [id number], * URINE (05/04/2024 12:07 AM [employer] P[employer] DEVELOPER) ,URIN E Negative Negative 05/04/2024 12:22 AM [employer] DEVELOPER [facility] Urine URINE SPECIMEN / Unknown Non-Blood / Unknown 05/04/2024 12:07 AM [employer] P[employer] DEVELOPER 05/04/2024 12:13 AM [employer] P[employer] DEVELOPER Anika Mccracken MD URINE Final Resu lt [facility] [address] [place] [id number], [place] [phone] * CWS PATH REVIEW HEMATOLOGY (05/03/2024 11:52 PM FILEN[employer] P8 DEVELOPER) PATH COMMENT Comment: 05/06/2024 7:30 AM FILEN[employer] P8 DEVELOPER [facility] Comment:Frequent sickle cell s. Reviewed by Dr. Richar Huffman on 05/05/2024 Blood BLOOD SPECIMEN / Unknown IV Start / Unknown 05/03/2024 11:52 PM [employer] P[employer] DEVELOPER 05/03/2024 11:52 PM [employer] P[employer] DEVELOPER us Anika Mccracken MD LABORATORY Final Resu lt [facility] [address] [place] [address], * (ABNORMAL) MANUAL DIFFERENTIAL (05/03/2024 11:52 PM [employer] P[employer] DEVELOPER) Only the most recent of4 resultswithin the time period is included. % NEUTROPHILS 55.0 % 05/04/2024 12:13 AM [employer] P[employer] DEVELOPER [facility] % LYMPHOCYTES 33.0 % 05/04/2024 12:13 AM [employer] P[employer] DEVELOPER [facility] % MONOCYTES 10.0 % 05/04/2024 12:13 AM [employer] P[employer] DEVELOPER [facility] % EOSINOPHILS 2.0 % 05/04/2024 12:13 AM [employer] P[employer] DEVELOPER [facility] % BASOPHILS 0.0 % 05/04/2024 12:13 AM FILENET P8 DEVELOPER [facility] NEUTROPHILS ABSOLUTE 10.6(H) 1.7 - 7.0 thou/cu mm 05/04/2024 12:13 AM FILENET P8 DEVELOPER [facility] LYMPHOCYTES ABSOLUTE 6.3(H) 0.9 - 2.9 thou/cu mm 05/04/2024 12:13 AM [facility] MONOCYTES ABSOLUTE 1.9(H) <0.9 thou/cu mm 05/04/2024 12:13 AM [facility] EOSINOPHILS ABSOLUTE 0.4 <0.5 thou/cu mm 05/04/2024 12:13 AM FILENET P8 DEVELOPER [facility] BASOPHILS ABSOLUTE 0.0 <0.3 thou/cu mm 05/04/2024 12:13 AM FILENET P8 DEVELOPER [facility] Blood BLOOD SPECIMEN / Unknown IV Start / Unknown 05/03/2024 11:52 PM FILENET P8 DEVELOPER 05/03/2024 11:52 PM FILENET P8 DEVELOPER Anika Mccracken MD HEMATOLOGY Final Resu lt Performing Organization Address City/[facility]/ZIP Co de Phone Number [facility] [address] [place] [address], * (ABNORMAL) D-DIMER,QUANTITATIVE (05/03/2024 11:52 PM FILENET P8 DEVELOPER) D-DIMER,QUANTI TATIVE 1.51(H) <=0.49 FEU mcg/mL 05/04/2024 12:28 AM FILENET P8 DEVELOPER [facility] Blood BLOOD SPECIMEN / Unknown IV Start / Unknown 05/03/2024 11:52 PM FILENET P8 DEVELOPER 05/03/2024 11:52 PM FILENET P8 DEVELOPER Narrative [facility] - 05/04/2024 12:28 AM FILENET P8 DEVELOPER The cut off value for exclusion of Deep Vein Thrombosis and / or Pulmonary Embolism is 0.50 FEU mcg/mL For patients greater than 50 years of age the upper limit is age dependent and was calculated with the formula: (PATIENT AGE x 0.01) FEU mcg/mL = Upper limit of normal range Anika Mccracken MD HEMATOLOGY Final Resu lt Performing Organization Address City/[facility]/ZIP Co de Phone Number [facility] [address] [place] [address], [place] [phone] * TYPE AND SCREEN ONLY (04/20/2024 4:43 PM FILENET P8 DEVELOPER) Only the most recent of2 resultswithin the time period is included. ABORH A Rh Positive 04/20/2024 5:20 PM FILENET P8 DEVELOPER [facility] Comment:Comment: Performed b y [facility], [address] [place] [address] ANTIBODY SCREEN Negative Negative 04/20/2024 5:20 PM FILENET P8 DEVELOPER [facility] Comment:Comment: Performed b y [facility], [address] [place] [address] SPECIMEN EXPIRATION DATE/TIME 04/23/24 23:59 04/20/2024 5:20 PM FILENET P8 DEVELOPER [facility] Blood BLOOD SPECIMEN / Unknown Butterfly / Unknown 04/20/2024 4:43 PM FILENET P8 DEVELOPER 04/20/2024 4:48 PM FILENET P8 DEVELOPER Maria Teresa SUTTON BLOOD B[facility] Final Result Performing Organization Address City/State/[facility] Co de Phone Number [facility] [address] [place] [address], [facility] [address] [place] [address] * XR ANKLE 3 VIEWS LEFT (04/18/2024 5:09 AM FILENET P8 DEVELOPER) Anatomical Region Laterality Modality ANKLES, ANKLE L Computed Radiogr aphy 04/18/2024 5:09 AM FILENET P8 DEVELOPER Impressions 04/18/2024 5:11 AM FILENET P8 DEVELOPER Normal joint spaces and alignment. No fracture. No significant soft tissue swelling. Ankle mortise intact. Narrative 04/18/2024 5:11 AM FILENET P8 DEVELOPER For Patients: As a result of the Century Cures Act, medical imaging exams and procedure reports are released immediately into your electronic medical record. You may view this report before your referring provider. If you have questions, please contact your health care provider. EXAM: XR ANKLE 3 VIEWS LEFT LOCATION: [facility] DATE: 04/18/2024 INDICATION: Pain COMPARISON: None. Procedure Note Jayden Correa MD - 04/18/2024 For Patients: As a result of the Cures Act, medical imagingexams and procedure reports are released immediately into your electronicmedical record. You may view this report before your referring provider.If you have questions, please contact your health care provider. EXAM: XR ANKLE 3 VIEWS LEFT LOCATION: [facility] DATE: 04/18/2024 INDICATION: Pain COMPARISON: None. IMPRESSION: Normal joint spaces and alignment. No fracture. No significant soft tissueswelling. Ankle mortise intact. us Elizabeth Duffy MD GENERAL IMAGING Final Res ult * C-REACTIVE PROTEIN (04/18/2024 4:59 AM FILENET P8 DEVELOPER) Only the most recent of4 resultswithin the time period is included. C-REACTIVE PROTEIN <0.3 <0.5 mg/dL 04/18/2024 5:43 AM FILENET P8 DEVELOPER [facility] Blood BLOOD SPECIMEN / Unknown Butterfly / Unknown 04/18/2024 4:59 AM FILENET P8 DEVELOPER 04/18/2024 5:02 AM FILENET P8 DEVELOPER Elizabeth Duffy MD CHEMISTRY Final Res ult Performing Organization Address City/[facility]/ZIP Co de Phone Number [facility] [address] [place] [address], [place] [phone] * SEDIMENTATION RATE (04/18/2024 4:58 AM FILENET P8 DEVELOPER) Only the most recent of3 resultswithin the time period is included. SEDIMENTATION RATE 6 <20 mm/hr 2023 5:17 AM FILENET P8 DEVELOPER [facility] Blood BLOOD SPECIMEN / Unknown Butterfly / Unknown 04/18/2024 4:58 AM FILENET P8 DEVELOPER 04/18/2024 5:02 AM FILENET P8 DEVELOPER Elizabeth Duffy MD HEMATOLOGY Final Res ult Performing Organization Address City/[facility]/ZIP Co de Phone Number [facility] [address] [place] [address], [place] [phone] * XR HIP 2 OR 3 VIEWS W PELVIS LEFT (04/15/2024 6:34 PM FILENET P8 DEVELOPER) Anatomical Region Laterality Modality HIPS, HIPL, Pelvis Computed Radi ography 04/15/2024 6:34 PM FILENET P8 DEVELOPER Impressions 04/15/2024 6:46 PM FILENET P8 DEVELOPER No acute fracture or subluxation. Sclerosis of the left femoral head in keeping with osteonecrosis. No articular surface collapse. There is additional patchy sclerosis throughout the pelvis greatest in the right iliac bone which may represent additional osteonecrosis. Hip joint spaces are grossly preserved. 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 Narrative 04/15/2024 6:46 PM FILENET P8 DEVELOPER For Patients: As a result of the Cures Act, medical imaging exams and procedure reports are released immediately into your electronic medical record. You may view this report before your referring provider. If you have questions, please contact your health care provider. EXAM: XR HIP 2 OR 3 VIEWS W PELVIS LEFT LOCATION: [facility] DATE: 04/15/2024 INDICATION: left hip pain, history of AVN Swelling Pain COMPARISON: None. Procedure Note Tanmay Aldrich MD - 04/15/2024 For Patients: As a result of the Cures Act, medical imagingexams and procedure reports are released immediately into your electronicmedical record. You may view this report before your referring provider.If you have questions, please contact your health care provider. EXAM: XR HIP 2 OR 3 VIEWS W PELVIS LEFT LOCATION: [facility] DATE: 04/15/2024 INDICATION: left hip pain, history of AVN Swelling Pain COMPARISON: None. IMPRESSION: No acute fracture or subluxation. Sclerosis of the left femoral head inkeeping with osteonecrosis. No articular surface collapse. There isadditional patchy sclerosis throughout the pelvis greatest in the rightiliac bone which may represent additional osteonecrosis. Hip joint spacesare grossly preserved. At least partial ankylosis of the left sacroiliacjoint. us Kathy Contreras MD GENERAL IMAGING Final Re sult * US ABDOMEN LIMITED GALLBLADDER (04/06/2024 9:38 PM FILENET P8 DEVELOPER) Anatomical Region Laterality Modality Abdomen Ultrasound 04/06/2024 9:38 PM FILENET P8 DEVELOPER Impressions 04/06/2024 9:46 PM FILENET P8 DEVELOPER 1. Cholelithiasis. Otherwise negative. Narrative 04/06/2024 9:46 PM FILENET P8 DEVELOPER For Patients: As a result of the Cures Act, medical imaging exams and procedure reports are released immediately into your electronic medical record. You may view this report before your referring provider. If you have questions, please contact your health care provider. EXAM: US ABDOMEN LIMITED GALLBLADDER LOCATION: [facility] DATE: 04/06/2024 INDICATION: Right upper quadrant pain COMPARISON: None. TECHNIQUE: Limited abdominal ultrasound. FINDINGS: GALLBLADDER: Gallstones in an otherwise normal gallbladder. No wall thickening, or pericholecystic fluid. Negative sonographic Mason's sign. BILE DUCTS: No biliary dilatation. The common duct measures 3 mm. LIVER: Normal parenchyma with smooth contour. No focal mass. RIGHT KIDNEY: No hydronephrosis. PANCREAS: The visualized portions are normal. No ascites. Procedure Note Nicho Maria MD - 04/06/2024 For Patients: As a result of the Cures Act, medical imagingexams and procedure reports are released immediately into your electronicmedical record. You may view this report before your referring provider.If you have questions, please contact your health care provider. EXAM: US ABDOMEN LIMITED GALLBLADDER LOCATION: [facility] DATE: 04/06/2024 INDICATION: Right upper quadrant pain COMPARISON: None. TECHNIQUE: Limited abdominal ultrasound. FINDINGS: GALLBLADDER: Gallstones in an otherwise normal gallbladder. No wallthickening, or pericholecystic fluid. Negative sonographic Mason'ssign. BILE DUCTS: No biliary dilatation. The common duct measures 3 mm. LIVER: Normal parenchyma with smooth contour. No focal mass. RIGHT KIDNEY: No hydronephrosis. PANCREAS: The visualized portions are normal. No ascites. IMPRESSION: 1. Cholelithiasis. Otherwise negative. us Tanmay Sami SUTTON US Final R esult * (ABNORMAL) COMP METABOLIC PANEL (04/06/2024 8:55 PM FILENET P8 DEVELOPER) SODIUM 140 136 - 145 mmol/L 04/06/2024 9:20 PM FILENET P8 DEVELOPER [facility] POTASSIUM 4.5 3.5 - 5.1 mmol/L 04/06/2024 9:20 PM FILENET P8 DEVELOPER [facility] CHLORIDE 108(H) 98 - 107 mmol/L 04/06/2024 9:20 PM FILENET P8 DEVELOPER [facility] CO2,TOTAL 21(L) 22 - 29 mmol/L 04/06/2024 9:20 PM FILENET P8 DEVELOPER [facility] ANION GAP 11 5 - 18 04/06/2024 9:20 PM FILENET P8 DEVELOPER [facility] GLUCOSE 103(H) 70 - 99 mg/dL 04/06/2024 9:20 PM FILENET P8 DEVELOPER [facility] CALCIUM 9.6 8.8 - 10.4 mg/dL 04/06/2024 9:20 PM FILENET P8 DEVELOPER [facility] Comment: Reference ranges for this test were updated on 02/29/2024 to reflect our healthy population more accurately. Reference range changes are not retroactively applied to results, but previous results using the same methodology can be interpreted in the context of the new reference range. BUN 8 6 - 20 mg/dL 04/06/2024 9:20 PM FILENET P8 DEVELOPER [facility] CREATININE 0.78 0.50 - 0.90 mg/dL 04/06/2024 9:20 PM FILENET P8 DEVELOPER [facility] BUN/CREAT RATIO 10 10 - 20 9:20 PM FILENET P8 DEVELOPER [facility] eGFR >90 >90 mL/min/1.7 3m2 04/06/2024 9:20 PM FILENET P8 DEVELOPER [facility] Comment:As of 2021, eG FR is calculated by the CKD-EPI creatinine equation without race adjustment. eGFR can be influenced by muscle mass, exercise, and diet. The reported eGFR is an estimation only and is only applicable if the renal function is stable. ALBUMIN 4.7 4.0 - 4.9 g/dL 04/06/2024 9:20 PM FILENET P8 DEVELOPER [facility] PROTEIN,TOTAL 8.6(H) 6.0 - 8.0 g/dL 04/06/2024 9:20 PM FILENET P8 DEVELOPER [facility] BILIRUBIN,TOTAL 1.6(H) 0.0 - 1.2 mg/dL 04/06/2024 9:20 PM FILENET P8 DEVELOPER [facility] ALK PHOSPHATASE 124(H) 35 - 104 IU/L 04/06/2024 9:20 PM FILENET P8 DEVELOPER [facility] ALT (SGPT) 36(H) 10 - 35 IU/L 04/06/2024 9:20 PM FILENET P8 DEVELOPER [facility] AST (SGOT) 37(H) 10 - 35 IU/L 04/06/2024 9:20 PM FILENET P8 DEVELOPER [facility] Blood BLOOD SPECIMEN / Unknown Butterfly / Unknown 04/06/2024 8:55 PM FILENET P8 DEVELOPER 04/06/2024 9:00 PM FILENET P8 DEVELOPER Tanmay SUTTON CHEMISTRY Final R esult [facility] [address] [place] [address], * TROPONIN T (HS) ACUTE W/2HR REFLEX (04/04/2024 6:54 PM FILENET P8 DEVELOPER) Only the most recent of2 resultswithin the time period is included. TROPONIN T HS <6 6-10 ng/L ng/L 04/04/2024 7:31 PM FILENET P8 DEVELOPER [facility] Blood BLOOD SPECIMEN / Unknown Butterfly / Unknown 04/04/2024 6:54 PM FILENET P8 DEVELOPER 04/04/2024 6:57 PM FILENET P8 DEVELOPER Narrative [facility] - 04/04/2024 7:31 PM FILENET P8 DEVELOPER hs-cTnT (Elecsys Troponin T Gen 5) concentration (s) above the sex-specific 99th percentile (16 ng/L or greater for males or 11 ng/L or greater for females) are indicative of myocardial injury. If initial hs-cTnT <=100 ng/L at presentation, a 0h/2h ABSOLUTE (ng/L) delta change (rising or falling) of >=10 ng/L suggests a significant change, whereas a 0h/2h delta change <=3 ng/L suggests no significant change. If initial hs-cTnT >100 ng/L at presentation, a 0h/2h/ RELATIVE (percent, %) delta change of 20% is suggested to distinguish patients with acute vs. chronic myocardial injury. There are multiple etiologies that can cause hs-cTnT increases above the 99th percentile (myocardial injury) other than acute myocardial infarction. Clinical context and careful clinical evaluation are critical for diagnosis and risk-stratification. The diagnosis of acute myocardial infarction requires a rising and/or falling pattern in hs-cTnT concentrations with at least one value above the sex-specific 99th percentile PLUS at least one of the following clinical criteria: ischemic symptoms, new or presumed new significant ST-T wave changes or new LBBB, development of pathological Q waves, imaging evidence of new loss of viable myocardium or new regional wall motion abnormality, or identification of intracoronary atherothrombosis or an acute angiographic culprit on coronary angiography. In appropriate low-risk patients with a non-ischemic electrocardiogram without active chest pain with a symptom onset >3-hours without recurrence, a single initial hs-cTnT<6 ng/L identifies patient with a very low risk in emergency department patient population. us Juhi SUTTON CHEMISTRY Final Re sult [facility] [address] [place] [address], * (ABNORMAL) PLATELET COUNT (03/30/2024 8:15 AM FILENET P8 DEVELOPER) Only the most recent of2 resultswithin the time period is included. PLATELET COUNT 531(H) 140 - 440 thou/cu mm 03/30/2024 8:22 AM FILENET P8 DEVELOPER [facility] MPV 9.7 6.5 - 11.0 fL 03/30/2024 8:22 AM FILENET P8 DEVELOPER [facility] Blood BLOOD SPECIMEN / Unknown Venipuncture / Unknown 03/30/2024 8:15 AM FILENET P8 DEVELOPER 03/30/2024 8:18 AM FILENET P8 DEVELOPER Albino Loco MD HEMATOLOGY Final Resu lt Performing Organization Address City/[facility]/ZIP Co de Phone Number [address] [address], * (ABNORMAL) WHITE BLOOD COUNT (03/30/2024 8:15 AM FILENET P8 DEVELOPER) Only the most recent of2 resultswithin the time period is included. WHITE BLOOD COUNT 11.8(H) 4.5 - 11.0 thou/cu mm 03/30/2024 8:22 AM FILENET P8 DEVELOPER [facility] NRBC 0.3 % 03/30/2024 8:22 AM FILENET P8 DEVELOPER [facility] ABS NRBC 0.0 thou /cu mm 03/30/2024 8:22 AM FILENET P8 DEVELOPER [facility] Blood BLOOD SPECIMEN / Unknown Venipuncture / Unknown 03/30/2024 8:15 AM FILENET P8 DEVELOPER 03/30/2024 8:18 AM FILENET P8 DEVELOPER Albino Loco MD HEMATOLOGY Final Resu lt Performing Organization Address City/[facility]/ZIP Co de Phone Number [facility] [address] [place] [address], [place] [phone] * (ABNORMAL) SODIUM (03/30/2024 8:15 AM FILENET P8 DEVELOPER) SODIUM 135(L) 136 - 145 mmol/L 03/30/2024 8:39 AM FILENET P8 DEVELOPER [facility] Blood BLOOD SPECIMEN / Unknown Venipuncture / Unknown 03/30/2024 8:15 AM FILENET P8 DEVELOPER 03/30/2024 8:18 AM FILENET P8 DEVELOPER Albino Loco MD CHEMISTRY Final Resu lt [facility] [address] [place] [address], * POTASSIUM (03/30/2024 8:15 AM FILENET P8 DEVELOPER) POTASSIUM 4.3 3.5 - 5.1 mmol/L 03/30/2024 8:39 AM FILENET P8 DEVELOPER [facility] Blood BLOOD SPECIMEN / Unknown Venipuncture / Unknown 03/30/2024 8:15 AM FILENET P8 DEVELOPER 03/30/2024 8:18 AM FILENET P8 DEVELOPER Albino Loco MD CHEMISTRY Final Resu lt Performing Organization Address City/[facility]/ZIP Co de Phone Number [facility] [address] [place] [address], [place] [phone] * CREATININE (03/30/2024 8:15 AM FILENET P8 DEVELOPER) eGFR >90 >90 mL/min/1.7 3m2 03/30/2024 8:39 AM FILENET P8 DEVELOPER [facility] Comment:As of 2021, eG FR is calculated by the CKD-EPI creatinine equation without race adjustment. eGFR can be influenced by muscle mass, exercise, and diet. The reported eGFR is an estimation only and is only applicable if the renal function is stable. CREATININE 0.56 0.50 - 0.90 mg/dL 03/30/2024 8:39 AM FILENET P8 DEVELOPER [facility] Blood BLOOD SPECIMEN / Unknown Venipuncture / Unknown 03/30/2024 8:15 AM FILENET P8 DEVELOPER 03/30/2024 8:18 AM FILENET P8 DEVELOPER Albino Loco MD CHEMISTRY Final Resu lt [facility] [address] [place] [address], * (ABNORMAL) BILIRUBIN,TOTAL (03/29/2024 5:44 AM FILENET P8 DEVELOPER) BILIRUBIN,TOTA L 1.8(H) 0.0 - 1.2 mg/dL 03/29/2024 6:45 AM FILENET P8 DEVELOPER [facility] Blood BLOOD SPECIMEN / Unknown Venipuncture / Unknown 03/29/2024 5:44 AM FILENET P8 DEVELOPER 03/29/2024 6:20 AM FILENET P8 DEVELOPER Casey LUCASBS CHEMISTRY Liss l Result Performing Organization Address City/[facility]/ZIP Co de Phone Number [address] [address], * (ABNORMAL) Bilirubin, total/direct FOR ADD ON (03/28/2024 7:53 PM FILENET P8 DEVELOPER) BILIRUBIN,TOTA L 2.4(H) 0.0 - 1.2 mg/dL 03/28/2024 9:52 PM FILENET P8 DEVELOPER [facility] BILIRUBIN,DIRE CT 0.9(H) 0.0 - 0.2 mg/dL 03/28/2024 9:52 PM FILENET P8 DEVELOPER [facility] BILIRUBIN,HERBERT RECT 1.5(H) 0.2 - 0.8 mg/dL 03/28/2024 9:52 PM FILENET P8 DEVELOPER [facility] Blood BLOOD SPECIMEN / Unknown IV Start / Unknown 03/28/2024 7:53 PM FILENET P8 DEVELOPER 03/28/2024 7:57 PM FILENET P8 DEVELOPER Casey CASIANO CHEMISTRY Liss l Result [facility] [address] [place] [address], * BLOOD CULTURE (03/28/2024 2:17 AM FILENET P8 DEVELOPER) Only the most recent of2 resultswithin the time period is included. CULTURE No Growth. 04/02/2024 9:01 AM FILENET P8 DEVELOPER [facility] Blood BLOOD SPECIMEN / Unknown Venipuncture / Unknown 03/28/2024 2:17 AM FILENET P8 DEVELOPER 03/28/2024 2:20 AM FILENET P8 DEVELOPER Mor Ramsey MD MICROBIOLOGY Final Result Performing Organization Address City/[facility]/ZIP Co de Phone Number [facility] [address] [place] [address], * PROCALCITONIN (03/28/2024 2:06 AM FILENET P8 DEVELOPER) PROCALCITONIN 0.05 ng/ml 03/28/2024 4:15 AM FILENET P8 DEVELOPER [facility] Blood BLOOD SPECIMEN / Unknown Venipuncture / Unknown 03/28/2024 2:06 AM FILENET P8 DEVELOPER 03/28/2024 2:20 AM FILENET P8 DEVELOPER Narrative [facility] - 03/28/2024 4:15 AM FILENET P8 DEVELOPER Procalcitonin for initial assessment of Lower Respiratory Tract Infection: Results Interpretation <0.10 ng/mL Antibiotic therapy strongly discoraged. Indicates absent of bacterial infection. * 0.10 - 0.25 ng/mL Antibiotic therapy discouraged. Bacterial infection unlikely. * 0.26 - 0.50 ng/mL Antibiotic therapy encouraged. Bacterial infection possible. >0.50 ng/mL Antibiotic therapy strongly encouraged. Suggestive of presence of bacterial infection. *Antibiotic therapy should be considered regardless of PCT result if the patient is clinically unstable, is at high risk for adverse outcome, has strong evidence of bacterial pathogen, or the clinical context indicates antibiotic therapy is warranted. If antibiotics are withheld, reassess if symptoms persist/worsen and/or repeat PCT measurement within 6-24 hours. In order to assess treatment success and to support a decision to discontinue antibiotic therapy, follow up samples should be tested once every 1-2 days, based upon physician discretion taking into account patient's evolution and progress. Procalcitonin for initial assessment of severe sepsis risk: Results Interpretation <0.5 ng/ml A PCT level below 0.5 ng/ml on the first day of ICU admission is associated with a low risk for progression to severe sepsis and/or septic shock. > 2.0 ng/mL A PCT level above 2.0 ng/mL on the first day of ICU admission is associated with a high risk for progression to severe sepsis and/or septic shock. Note: Concentrations < 0.5 ng/mL do not exclude an infection, on account of localized infections (without systemic signs) which can be associated with such low concentrations, or a systemic infection in its initial stages(< 6 hours). Furthermore, increased procalcitonin can occur without infection. PCT concentrations between 0.5 and 2.0 ng/mL should be interpreted taking into account the patient's history. It is recommended to retest PCT within 6-24 hours if any concentrations < 2 ng/mL are obtained. Mor Moy Ramsey MD SEND OUTS Final Result [facility] [address] [place] [address], from Last 3 Months Insurance [facility] Advance Directives * Full Code (Latest Code Status on File) Date Activated Date Inactivated Comments 03/28/2024 10:36 PM 03/30/2024 11:39 AM Question Answer Comments Code Status Discussion: Reviewed Preferences * Full Code Date Activated Date Inactivated Comments 03/16/2024 1:29 AM 03/18/2024 1:58 PM Question Answer Comments Code Status Discussion: Reviewed Preferences Care Teams Medicaid Service Coordinator Relationship Specialty Start Date End Date Veronica Joseph MD [address] [place] [address] PCP - General Family Practice 03/29/24
--- OUTSIDE RECORDS SUMMARY | 2024-06-21 22:15 | XMS_ITS | Encounter Summary ---
Author Organization [facility] Address [address] [place] [id number] Care Team Providers Care Planner Scheduler Name Role Phone No Ref-Primary, Physician Primary Care Provider Mor Ramsey Unavailable Unavailable Case Samuel MD Unavailable [phone] Juhi Benson RN Unavailable Unavailable Reason for Visit * Reason Onset Date Comments Refill Request 06/15/2024 Encounter Details Date Type Department Care Team (Late st Contact Info) Description 06/15/[address] [place] [address] Case Samuel MD [address] [place] [address], [address] [place], [place] [id number] Refill Request Social History Tobacco Use Types Packs/Day Years Used Date Smoking Tobacco: Never Smokeless Tobacco: Never Alcohol Use Standard Drinks/Week Comments Not Currently 0 (1 standard drink = 0.6 oz pur e alcohol) Food Insecurity Answer Date Recorded Within the past 12 months, d id you worry that your food would run out before you got money to buy more? No 04/09/2024 Within the past 12 months, d id the food you bought just not last and you didn t have money to get more? No 04/09/2024 Housing Stability Answer Date Recorded Do you have housing? (Housin g is defined as stable permanent housing and does not include staying ouside in a car, in a tent, in an abandoned building, in an overnight group home, or couch-surfing.) Yes 04/09/2024 Are you worried about losing your housing? No 04/09/2024 Financial Resource Strain Answer Date R ecorded Within the past 12 months, h ave you or your family members you live with been unable to get utilities (heat, electricity) when it was really needed? No 04/09/2024 Transportation Needs Answer Date Record ed Within the past 12 months, h as lack of transportation kept you from medical appointments, getting your medicines, non-medical meetings or appointments, work, or from getting things that you need? No 04/09/2024 Interpersonal Safety Answer Date Record ed Do you feel physically and e motionally safe where you currently live? Yes 05/25/2024 Within the past 12 months, h ave you been hit, slapped, kicked or otherwise physically hurt by someone? No 05/25/2024 Within the past 12 months, h ave you been humiliated or emotionally abused in other ways by your partner or ex-partner? 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 Pt states she used to get 4mg tabs, but now has been getting 2mg and using two at a time and goes through more. Pt discharged from hospital today. Does pt have enough for today? No, she is out. Is pain being adequately controlled on the current regimen?: yes Experiencing any side effects from medication?: no Date of most recent appointment: 05/01/24 w/ Dr. aSmuel Any No Show Visits: none Next appointment: nothing scheduled Last fill date and by whom: Dr. Case Samuel on 06/07/24 MANAGER OF TRAINING Reviewed: no access Send to provider: Dr. Samuel and SOFIA ReynagaCC. L PRESS OPERATOR documented in this encounter Plan of Treatment Not on file documented as of this encounter Goals Goal Patient Goal Type Associated Problems Recent Progress Patient-Stated? Author Pain Management General On track( 025 12:40 PM DRILL PRESS OPERATOR) Yes Juhi Benson, RN Note: Goal Statement: I will establish a plan for preventing and managing pain. Date Goal set: 05/01/2024 Barriers: disease burden Strengths: support, coping, motivation, health awareness, and involvement with care team Date to Achieve By: ongoing Patient expressed understanding of goal: Yes Action steps to achieve this goal: I will take medications as prescribed. I will call triage with new or worsening pain not controlled by medication. I will use alternative therapies as directed. (Ice, heat, massage, etc) I will call triage for medication refills when there are 2-3 days of medication remaining. 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
--- OUTSIDE RECORDS SUMMARY | 2024-06-21 22:15 | XMS_ITS | Encounter Summary ---
Author Organization [facility] Address [address] [place] [address]. [place] [address] Care Team Providers Care Human Resources Benefits Manager Name Role Phone No Ref-Primary, Physician Primary Care Provider Mor Ramsey Unavailable Unavailable Case Samuel MD Unavailable [phone] Juhi Benson RN Unavailable Unavailable Encounter Details Date Type Department Care Team (Latest Contact Info) Description 06/12/2024 Travel Social History Tobacco Use Types Packs/Day Years [...] Answer Date Recorded Do you have housing? (Estradain g is defined as stable permanent housing and does not include staying ouside in a car, in a tent, in an abandoned building, in an overnight nursing home, or couch-surfing.) Yes 04/09/2024 Are you [...] on file Legal Sex Female 8:25 AM ADMINISTRATIVE UNDERWRITER Gender Identity Not on file Sexual Orientation Not on file documented as of this encounter Plan of Treatment Not on file documented as of this encounter Goals Goal Patient Goal Type Associated Problems Recent Progress Patient-Stated? Author Pain Management General On track( 025 12:40 PM ADMINISTRATIVE UNDERWRITER) Yes Juhi Benson RN Note: Goal Statement: I will establish [...] documented as of this encounter Visit Diagnoses Not on filedocumented in this encounter Care Teams Human Resources Benefits Manager Relationship Specialty Start Date End Date No Ref-Primary, Physician PCP - General 03/15/24 06/17/24 Mor Ramsey Medical Student 04/03/24 Case Samuel MD [address] [place] [address], [address] [place] [address] Assigned Pediatric Specialist Provider 05/18/24 Juhi Benson RN Specialty Wireless Cellular Technician Hematology & Oncology 05/29/24 documented as of this encounter
--- OUTSIDE RECORDS SUMMARY | 2024-06-21 22:15 | XMS_ITS | Encounter Summary ---
Author Organization [facility] Address [address] [place] [address] Care Team Providers Care Orthotist Prosthetist Name Role Phone No Ref-Primary, Physician Primary Care Provider Mor Ramsey Unavailable Unavailable Case Samuel MD Unavailable [phone] Juhi Benson RN Unavailable Unavailable Reason for Visit * Reason Comments Sickle Cell Pain Crisis Encounter Details Date Type Department Care Team (Late st Contact Info) Description 06/11/2024 9:02 PM SPRAGGER - 06/12/2024 1:57 AM [facility] Emergency [facility] Emergency Room [address] [place] [address] Iliana Weber MD [facility] [address] [place] [address] Sickle cell pain crisis (H) Discharge Disposition: Home or Self Care Social History Tobacco Use Types Packs/Day Years [...] in an abandoned building, in an overnight assisted, or couch-surfing.) Yes 04/09/2024 Are you worried [...] on file Legal Sex Female 8:25 AM SPRAGGER Gender Identity Not on file Sexual Orientation Not on file documented as of this encounter Last Filed Vital Signs Vital Sign Reading Time Taken Comments Blood Pressure 118/75 06/12/2024 12:45 AM SPRAGGER Pulse 91 06/12/2024 12:45 AM SPRAGGER Temperature 36.5 C (97.7 F) 06/11/2024 8:58 PM SPRAGGER Respiratory Rate 19 06/12/2024 12:45 AM SPRAGGER Oxygen Saturation 95% 06/12/2024 12:45 AM SPRAGGER Inhaled Oxygen Concentration - - Weight 52.2 kg (115 lb) 06/11/2024 8:58 PM SPRAGGER Height 154.9 cm (5' 1) 06/11/2024 8:58 PM SPRAGGER Body Mass Index 21.73 06/11/2024 8:58 PM SPRAGGER documented in this encounter Discharge Instructions * Attachments The following attachments cannot be sent through Care Everywhere. * Sickle Cell Crisis (Pashto) documented in this encounter Medications at Time of Discharge diphenhydrAMINE (BENADRYL) 25 MG tablet Take 1-2 tablets by mouth every 6 hours as needed for itching. EPINEPHrine (ANY BX GENERIC EQUIV) 0.3 MG/0.3ML injection 2-pack Inject 0.3 mg into the muscle as needed for anaphylaxis. May repeat one time in 5-15 minutes if response to initial dose is inadequate. FLUoxetine (PROZAC) 10 MG capsuleIndication s:Severe episode of recurrent major depressive disorder, without psychotic features (H) Take 1 capsule (10 mg) by mouth daily. 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 30 tablet 11 05/01/2024 naloxone (NARCAN) 4 MG/0.1ML nasal spray [place] 1 spray (4 mg) into one nostril alternating nostrils as needed for opioid reversal (for opiate overdose if not breathing and unconscious. have your family member watch video on how to use/read information sheet). every 2-3 minutes until assistance arrives 2 each 06/06/2024 cefpodoxime (VANTIN) 200 MG tabletIndications :Pneumonia of right lower lobe due to infectious organism Take 1 tablet (200 mg) by mouth 2 times daily for 3 days. 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 40 tablet 06/07/2024 5 documented as of this encounter ED Notes * Shane Santos RN - 06/11/2024 11:12 PM CST Gave handoff report to Niki BLACK GGER * Shane Santos RN - 06/11/2024 10:00 PM CST Pt drove here as seen on security footage. Notified Dr Weber, and ok to proceed with treatment plan as ordered. Pt was advised to arrange a ride home. GGER * Iliana Weber MD - 06/11/2024 9:08 PM CST EMERGENCY DEPARTMENT ENCOUNTER NAME: Gianna Hernández AGE: [age] year old female DATE OF : 1995 EVALUATION DATE & TIME: 06/11/2024 9:02 PM PCP: No Ref-Primary, Physician ED PROVIDER: Iliana Weber M.D. Chief Complaint Patient presents with Sickle Cell Pain Crisis FINAL IMPRESSION: 1. Sickle cell pain crisis (H) MEDICAL DECISION MAKING: Pertinent Labs & Imaging studies reviewed. (See chart for details) Afebrile. Vital signs here with tachycardia, otherwise unremarkable. Patient is coming in for evaluation of pain related to sickle cell. Patient with multiple visits, does get infusion therapies frequently. Last seen at [facility] 06/11/2024 early this morning about midnight. Careplan was followed, patient had good improvement in discharged home. Reviewed the hematology care plan for patient.Reviewed recent emergency department notes from this month on the , 11th, 10th, eighth, sixth, fifth, third, second and the first. All just primarily following her plan. Discussed with patient that we will initiate her care plan here. We will reevaluate her and see if she is improving as she normally does. She states that if her pain does not seem to be improving or she has any change to her symptoms she will let us know and at that point we would draw blood or proceed with further testing. At this point we will hold off any blood draw. Her EKG here is nonischemic. Medical Decision Making Obtained supplemental history:Supplemental history obtained?: No Reviewed external records: External records reviewed?: Documented in chart Care impacted by chronic illness:Documented in Chart Did you consider but not order tests?: Work up considered but not performed and documented in chart, if applicable Did you interpret images independently?: Independent interpretation of ECG and images noted in documentation, when applicable. Consultation discussion with other provider:Did you involve another provider (information services consultant, MH, pharmacy, etc.)?: No Discharge. No recommendations on prescription strength medication(s). See documentation for any additional details. MIPS (CTPE, Dental pain, Santiago, Sinusitis, Asthma/COPD, Head Trauma): Not Applicable Critical care: 0 minutes excluding separately billable procedures. Includes bedside management, time reviewing test results, review of records, discussing the case with staff, documenting the medicalrecord and time spent with family members (or surrogate decision makers) discussing specific treatment issues. ED COURSE: The importance of close follow up was discussed. We reviewed warning signs and symptoms, and I instructed Ms. Hernández to return to the emergency department immediately if she develops any new or worsening symptoms. I provided additional verbal discharge instructions. Ms. Hernández expressed understanding and agreement with this plan of care, her questions were answered, and she was discharged in stable condition. MEDICATIONS GIVEN IN THE EMERGENCY: Medications sodium chloride (PF) 0.9% PF flush 10-20 mL (has no administration in time range) lactated ringers BOLUS 1,000 mL (0 mLs Intravenous Stopped 06/12/24 0009) HYDROmorphone (DILAUDID) injection 2 mg (2 mg Intravenous $Given 06/12/24 0023) ondansetron (ZOFRAN) injection 8 mg (8 mg Intravenous $Given 06/11/24 2208) heparin lock flush 100 unit/mL injection 5-10 mL (5 mLs Intracatheter $Given 06/12/24 0147) diphenhydrAMINE (BENADRYL) injection 25 mg (25 mg Intravenous $Given 06/12/24 0132) NEW PRESCRIPTIONS STARTED AT TODAY'S ER VISIT: New Prescriptions No medications on file HPI Patient information was obtained from: Patient Use of Tester Armature Or Fields: N/A Gianna Hernández is a 29 year old female who presents with sickle cell crisis. She has a history of sickle cell disease followed closely by hematology. Is currently being set up for exchange transfusions. They have a clear plan in place. She states that she is just having some left-sided anteriorchest wall pain. Has had acute chest in the past states this feels different. She does have pain crisis is that present like this once in a while. She states she has not had her labs drawn in a whileas more recently we have just been sticking to her care plan for her pain management and she has close follow-up with them. She states she has not been sick with anything recently. Has been taking her medications at home. Last took oral Dilaudid prior to coming in. No fever or chills. No cough or shortness of breath. REVIEW OF SYSTEMS Refer to HPI. All other systems negative. 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, sickle retinopathy Stroke (H) unclear location, self-report PAST SURGICAL HISTORY: Past Surgical History: Procedure Laterality Date ARTHROPLASTY KNEE Left details unclear IR CHEST PORT PLACEMENT > 5 YRS OF AGE 105/25/2024 IR CHEST PORT PLACEMENT > 5 YRS OF AGE 105/25/2024 TONSILLECTOMY & ADENOIDECTOMY Bilateral CURRENT MEDICATIONS: Current Facility-Administered Medications: sodium chloride (PF) 0.9% PF flush 10-20 mL, 10-20 mL, Intracatheter, q1 min prn, Iliana Weber MD Current Outpatient Medications: FLUoxetine (PROZAC) 10 MG capsule, Take 1 capsule (10 mg) by mouth daily., Disp: 40 capsule, Rfl: 1 folic acid (FOLVITE) 1 MG tablet, Take 1 tablet (1 mg) by mouth daily., Disp: 30 tablet, Rfl: 11 HYDROmorphone (DILAUDID) 2 MG tablet, Take 2 tablets (4 mg) by mouth every 6 hours as needed for severe pain., Disp: 40 tablet, Rfl: 0 hydroxyurea (HYDREA) 500 MG capsule, Take 2 capsules (1,000 mg) by mouth 2 times daily, Disp: 120 capsule, Rfl: 11 multivitamin, therapeutic (THERA-VIT) TABS tablet, Take 1 tablet by mouth daily., Disp: 30 tablet, Rfl: 11 naloxone (NARCAN) 4 MG/0.1ML nasal spray, [place] 1 spray (4 mg) into one nostril alternating nostrils as needed for opioid reversal (for opiate overdose if not breathing and unconscious. have your family member watch video on how to use/read information sheet). every 2-3 minutes until assistance arrives, Disp: 2 each, Rfl: 0 ALLERGIES: Allergies Allergen Reactions Banana Anaphylaxis, Hives and Swelling Other Reaction(s): Throat Swelling/Closing Blood Transfusion Related (Informational Only) Other (See Comments) Patient with a history of a hematologic condition and has a history of a clinically significant antibody against RBC antigens. A delay in compatible RBCs may occur. History of Anti-C and Nonspecific antibodies. Ketorolac Anaphylaxis and Hives Latex Hives and Rash Morphine Hives, Other (See Comments) and Unknown Seizure. Other opioids tolerated. Nuts Hives and Anaphylaxis Tramadol Hives Acetaminophen Hives Cashew Nut Oil Hives FAMILY HISTORY: Family History Problem Relation Age of Onset Sickle Cell Trait Daughter SOCIAL HISTORY: Social History Socioeconomic History Marital status: Single Tobacco Use Smoking status: Never Smokeless tobacco: Never Substance and Sexual Activity Alcohol use: Not Currently Drug use: Never Social History Narrative Afut-lr-npia mom. Recently moved to [place] from [place], [place]. She is 1 of 9 children. She lives with her boyfriend and 2-year-old daughter (Apr 2024). Social Drivers of Health Financial Resource Strain: Low Risk (04/09/2024) Financial Resource Strain Within the past 12 months, have you or your family members you live with been unable to get utilities (heat, electricity) when it was really needed?: No Food Insecurity: Low Risk (04/09/2024) Food Insecurity Within the past 12 months, did you worry that your food would run out before you got money to buy more?: No Within the past 12 months, did the food you bought just not last and you didn???t have money to getmore?: No Transportation Needs: Low Risk (04/09/2024) Transportation Needs Within the past 12 months, has lack of transportation kept you from medical appointments, getting your medicines, non-medical meetings or appointments, work, or from getting things that you need?: No Social Connections: Socially Integrated (03/28/2024) Received from [facility] Social Connections Do you often feel lonely or isolated from those around you?: 0 Interpersonal Safety: Low Risk (05/25/2024) Interpersonal Safety Do you feel physically and emotionally safe where you currently live?: Yes Within the past 12 months, have you been hit, slapped, kicked or otherwise physically hurt by someone?: No Within the past 12 months, have you been humiliated or emotionally abused in other ways by your partner or ex-partner?: No Housing Stability: Low Risk (04/09/2024) Housing Stability Do you have housing? : Yes Are you worried about losing your housing?: No PHYSICAL EXAM: Vitals: BP 118/75 Pulse 91 Temp 97.7 ??F (36.5 ??C) (Temporal) Resp 19 Ht 1.549 m (5' 1) Wt 52.2 kg (115 lb) SpO2 95% BMI 21.73 kg/m?? General:. Alert and interactive, mildly uncomfortable appearing. HENT: Oropharynx without erythema or exudates. MMM. TMs clear bilaterally. Eyes: Pupils mid-sized and equally reactive. Neck: Full AROM. No midline tenderness to palpation. Cardiovascular: Tachycardic rate, regular rhythm. Pulses 2+ bilaterally. 2 ports in anterior chest wall. Chest/Pulmonary: Normal work of breathing. Lung sounds clear and equal throughout, no wheezes or crackles. No chest wall tenderness or deformities. Abdomen: Soft, nondistended. Nontender without guarding or rebound. Back/Spine: No CVA or midline tenderness. Extremities: Normal ROM of all major joints. No lower extremity edema. Skin: Warm and dry. Normal skin color. Neuro: Speech clear. desktop analyst grossly intact. Moves all extremities appropriately. Strength and sensation grossly intact to all extremities. Psych: Normal affect/mood, cooperative, memory appropriate. LAB: All pertinent labs reviewed and interpreted. Labs Ordered and Resulted from Time of ED Arrival to Time of ED Departure - No data to display RADIOLOGY: No orders to display EKG: Patient's EKG here shows sinus tachycardia rate of 102. There is no signs for acute ischemia. No STelevations or depressions. No ectopy. Isoelectric T waves seen in 3 and aVF. Given normal axis. QTcis 453, QRS 78, WV 158. As compared to previous EKG from June 05, 2024 T wave slightly flattened in 3 and aVF but otherwise no significant change. I have independently reviewed and interpreted the EKG(s) documented above. Iliana Weber M.D. Emergency Medicine [facility] EMERGENCY ROOM [address] [facility] [address] Dept: [phone] Iliana Weber MD 06/12/24 0149 GGER * Jennifer Muse RN - 06/11/2024 8:56 PM CST Patient presents to the ED complaining of chest pain to her left anterior chest that started earlier today. Patient states she took 4 mg of Dilaudid at 1900 with no relief. EKG obtained in triage. Patient states she recently got to ports implanted for her Sickle Cell Disease treatment. Triage Assessment (Adult) Row Name 06/11/242055 Triage Assessment Airway WDL WDL Respiratory WDL Respiratory WDL WDL Skin Circulation/Temperature WDL Skin Circulation/Temperature WDL WDL Cardiac WDL Cardiac WDL WDL Peripheral/Neurovascular WDL Peripheral Neurovascular WDL WDL Cognitive/Neuro/Behavioral WDL Cognitive/Neuro/Behavioral WDL WDL GGER documented in this encounter Plan of Treatment Not on file documented as of this encounter Goals Goal Patient Goal Type Associated Problems Recent Progress Patient-Stated? Author Pain Management General On track( 025 12:40 PM SPRAGGER) Yes Juhi Benson, RN Note: Goal Statement: [...] medication remaining. documented as of this encounter Procedures Procedure Name Priority Date/Time Associated Diagnosis Comments ECG 12-LEAD WITH MUSE SJN,SJO,WWH STAT 06/11/2024 9:04 PM SPRAGGER documented in this encounter Results * ECG 12-LEAD WITH MUSE (LHE) (06/11/2024 9:04 PM SPRAGGER) Systolic Blood Pressure mmHg RADIOLOGY RESULTS Diastolic Blood Pressure mmHg RADIOLOGY RESULTS Ventricular Rate 102 BPM RAD IOLOGY RESULTS Atrial Rate 102 BPM RADIOLOG Y RESULTS WV Interval 158 ms RADIOLOG Y RESULTS QRS Duration 78 ms RADIOLO GY RESULTS QT 348 ms RADIOLOGY RESULTS QTc 453 ms RADIOLOGY RESULTS P Udell 39 degrees RADIOLOGY RESULTS R AXIS 66 degrees RADIOLOGY RESULTS T Udell 33 degrees RADIOLOGY RESULTS Interpretation ECG Sinus tachycardia Nonspecific T wave abnormality Abnormal ECG When compared with ECG of 05-Jun-2024 11:40, No significant change was found Confirmed by SEE ED PROVIDER NOTE FOR, ECG INTERPRETATION ([id number]), film or videotape editor SELMA GARRISON ([id number]) on 06/11/2024 9:05:27 PM RADIOLOGY RESULTS 06/11/2024 9:04 PM SPRAGGER 06/11/2024 9:05 PM SPRAGGER us Deshawn Arredondo MD ECG ORDERABLES Edited Resu lt - Final RADIOLOGY RESULTS documented in this encounter Visit Diagnoses Diagnosis 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 documented in this encounter Administered Medications Inactive Administered Medications - up to 3 most recent administrations Medication Order MAR Action Action Date Dose Rate Site diphenhydrAMINE (BENADRYL) injection 25 mg 25 mg, Intravenous, ONCE, On 06/12/24 at 0130, For 1 dose $Given 06/12/2024 1:32 AM SPRAGGER 25 mg heparin lock flush 100 unit/mL injection 5-10 mL 5-10 mL, Intracatheter, ONCE, On 06/11/24 at 2230, For 1 dose, To de-access each port in dual implanted port. Flush with 10 mL NS sodium chloride 0.9% flush followed by 5 mL heparin (100 units/mL) at discharge and at least every 28 days. MAX: 5 mL per each port lumen $Given 06/12/2024 1:47 AM SPRAGGER 5 mLs HYDROmorphone (DILAUDID) injection 2 mg 2 mg, Intravenous, EVERY 1 HOUR PRN, moderate pain, Starting on Wed06/11/24 at 2103, For 3 doses $Given 06/12/2024 12:23 AM SPRAGGER 2 mg $Given 06/11/2024 11:16 PM SPRAGGER 2 mg $Given 06/11/2024 10:09 PM SPRAGGER 2 mg lactated ringers BOLUS 1,000 mL Intravenous, 1,000 mL, ONCE, at 500 mL/hr, Administer over 2 Hours, On 06/11/24 at 2130, For 1 dose $New Bag 06/11/2024 10:03 PM SPRAGGER 1,000 mLs 500 mL/hr ondansetron (ZOFRAN) injection 8 mg 8 mg, Intravenous, ONCE, Administer over 2-5 Minutes, On 06/11/24 at 2130, For 1 dose $Given 06/11/2024 10:08 PM SPRAGGER 8 mg sodium chloride (PF) 0.9% PF flush 10-20 mL 10-20 mL, Intracatheter, EVERY 1 MIN PRN, line flush, post meds or blood draw, to flush each lumen of the CVC Implanted port, Starting on Wed06/11/24 at 2159, 10 mL per port lumen post IV meds; 20 mL per port lumen post post blood draw. documented in this encounter Active and Recently Administered Medications Times are shown in SPRAGGER. Scheduled Medication Order 06/10/2024 06/11/2024 06/12/2024 diphenhydrAMINE (BENADRYL) injection 25 mg (COMPLETED) 25 mg, Intravenous, ONCE, On Wed06/12/24 at 0130, For 1 dose 0132 ($Given - Provi nas: Guille Payan RN) heparin lock flush 100 unit/mL injection 5-10 mL (COMPLETED) 5-10 mL, Intracatheter, ONCE, On 06/11/24 at 2230, For 1 dose, To de-access each port in dual implanted port. Flush with 10 mL NS sodium chloride 0.9% flush followed by 5 mL heparin (100 units/mL) at discharge and at least every 28 days. MAX: 5 mL per each port lumen 0147 ($Given - Provi nas: Guille Payan, SOFIA) lactated ringers BOLUS 1,000 mL (COMPLETED) Intravenous, 1,000 mL, ONCE, at 500 mL/hr, Administer over 2 Hours, On 06/11/24 at 2130, For 1 dose 2202 ($New Bag - Provider: Shane Santos RN) 0009 (Stopped - Provider: Guille Payan, RN) ondansetron (ZOFRAN) injection 8 mg (COMPLETED) 8 mg, Intravenous, ONCE, Administer over 2-5 Minutes, On 06/11/24 at 2130, For 1 dose 2207 ($Given - Provider: Shane Santos RN) PRN Medication Order 06/10/2024 06/11/2024 06/12/2024 HYDROmorphone (DILAUDID) injection 2 mg (COMPLETED) 2 mg, Intravenous, EVERY 1 HOUR PRN, moderate pain, Starting on 06/11/24 at 2103, For 3 doses 2208 ($Given - Provider: Shane Santos RN)2316 ($Given - Provider: Guille Payan, SOFIA) 0023 ($Given - Provider: Guille Payan, RN) sodium chloride (PF) 0.9% PF flush 10-20 mL 10-20 mL, Intracatheter, EVERY 1 MIN PRN, line flush, post meds or blood draw, to flush each lumen of the CVC Implanted port, Starting on 06/11/24 at 2159, 10 mL per port lumen post IV meds; 20 mL per port lumen post post blood draw. documented in this encounter Care Teams Orthotist Prosthetist Relationship Specialty Start Date End Date No Ref-Primary, Physician PCP - General 03/15/24 06/17/24 Mor Ramsey Medical Student 04/03/24 Case Samuel MD [address] [place] [address], [address] [place] [address] Assigned Pediatric Specialist Provider 05/18/24 Juhi Benson, RN Specialty Fishing Floats Assembler Hematology & Oncology 05/29/24 documented as of this encounter
--- OUTSIDE RECORDS SUMMARY | 2024-06-21 22:15 | XMS_ITS | Encounter Summary ---
Author Organization [facility] Address [address] [place] [address]. [place] [address] Care Team Providers Care Branch Service Representative Name Role Phone No Ref-Primary, Physician Primary Care Provider Mor Ramsey Unavailable Unavailable Case Samuel MD Unavailable [phone] Juhi Benson RN Unavailable Unavailable Encounter Details Date Type Department Care Team (Latest Contact Info) Description 06/11/2024 Travel Social History Tobacco Use Types Packs/Day [...] in an abandoned building, in an overnight half-way, or couch-surfing.) Yes 04/09/2024 Are you worried [...] on file Legal Sex Female 8:25 AM CHANNEL LIP WETTER Gender Identity Not on file Sexual Orientation Not on file documented as of this encounter Plan of Treatment Not on file documented as of this encounter Goals Goal Patient Goal Type Associated Problems Recent Progress Patient-Stated? Author Pain Management General On track( 025 12:40 PM CHANNEL LIP WETTER) Yes Juhi Benson RN Note: Goal Statement: [...] on filedocumented in this encounter Care Teams Branch Service Representative Relationship Specialty Start Date End Date No Ref-Primary, Physician PCP - General 03/15/24 06/17/24 Mor Ramsey Medical Student 04/03/24 Case Samuel MD [address] [place] [address], [address] [place] [address] Assigned Pediatric Specialist Provider 05/18/24 Juhi Benson RN Specialty Powder Press Operator Hematology & Oncology 05/29/24 documented as of this encounter
--- OUTSIDE RECORDS SUMMARY | 2024-06-21 22:16 | XMS_ITS | Encounter Summary ---
Author Organization [facility] Address [address] [place] [address]. 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 Call member services at your health plan with any benefit or coverage questions. INSTALLER Reason for Visit * Reason Comments Sickle Cell Pain Crisis * Auth/Cert Specialty Diagnoses / Procedures Referred By Contkameron t Referred To Contact EMERGENCY MEDICINE Diagnoses Acute chest pain Sickle cell pain crisis (H) [facility] Emergency Department [address] [place] [address] Phone: tel: Referral ID Status Reason Start Date Expiration Date Visits Re quested Visits Authorized [id number] 1 1 Encounter Details Date Type Department Care Team (Latest Contact Info) Description 06/12/2024 6:38 PM FAN INSTALLER - 06/15/2024 10:48 AM FAN INSTALLER Hospital Encounter [facility] Emergency Department [address] [place] [phone] Abdelrahman Goddard MD [address] [place] [address] Andres Jain DO Duffy, Briar, MD [address] [facility] [address] [place] [address] 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 (Sae g is defined as stable permanent housing and does not include staying ouside in a car, in a tent, in an abandoned building, in an overnight residential, or couch-surfing.) Yes 04/09/2024 Are you worried [...] on file Legal Sex Female 8:25 AM FAN INSTALLER Gender Identity Not on file Sexual Orientation Not on file documented as of this encounter Last Filed Vital Signs Vital Sign Reading Time Taken Comments Blood Pressure 99/64 06/15/2024 6:10 AM FAN INSTALLER Pulse 75 06/15/2024 6:10 AM FAN INSTALLER Temperature 36.7 C (98 F) 06/15/2024 6:10 AM FAN INSTALLER Respiratory Rate 16 06/15/2024 6:10 AM FAN INSTALLER Oxygen Saturation 100% 06/15/2024 6:10 AM FAN INSTALLER Inhaled Oxygen Concentration - - Weight - - Height - - Body Mass Index - - documented in this encounter Medications at Time [...] by mouth 2 times daily 120 capsule 11 05/01/2024 ibuprofen (ADVIL/MOTRIN) 200 MG tablet Take 200 mg by mouth every 6 hours as needed for pain. 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 30 tablet 11 05/01/2024 naloxone (NARCAN) 4 MG/0.1ML nasal spray Leonard 1 spray (4 mg) into one nostril [...] daily for 3 days. 6 tablet 06/15/2024 documented as of this encounter Progress Notes * Araceli Ramires MD - 06/14/2024 1:18 PM CST Images from the original note were not included. HEMATOLOGY PROGRESS NOTE Subjective Gianna Hernández was seen and examined at bedside today. She reports that she had worsening pain overnight and did not ask for medication. She reports that she hasn't been able to get much sleep. She denies any shortness of breath but endorses chest tightness. No history of fevers, chills, cough, or hemoptysis. No increase in oxygen requirements. Vitals are stable. Review of Systems Constitutional: Negative for chills and fever. HENT: Negative for nosebleeds. Eyes: Negative for blurred vision. Respiratory: Negative for cough, hemoptysis and wheezing. Cardiovascular: Negative for leg swelling. Gastrointestinal: Negative for diarrhea. Genitourinary: Negative for hematuria. Musculoskeletal: Positive for back pain. Skin: Negative for rash. Neurological: Negative for focal weakness and loss of consciousness. Endo/Heme/Allergies: Does not bruise/bleed easily. Objective BP 119/76 (BP Location: Right arm) Pulse 83 Temp 98.4 ??F (36.9 ??C) (Oral) Resp 16 SpO2 99% PHYSICAL EXAMINATION Physical Exam Constitutional: General: She is not in acute distress. Appearance: Normal appearance. HENT: Mouth/Throat: Mouth: Mucous membranes are moist. Pharynx: Oropharynx is clear. Eyes: General: No scleral icterus. Pupils: Pupils are equal, round, and reactive to light. Cardiovascular: Rate and Rhythm: Normal rate. Pulses: Normal pulses. Heart sounds: Normal heart sounds. No murmur heard. Pulmonary: Effort: Pulmonary effort is normal. Breath sounds: No wheezing. Comments: Slightly reduced breath sounds in the right lower lung lindsay Abdominal: General: Abdomen is flat. There is no distension. Palpations: Abdomen is soft. Skin: General: Skin is warm and dry. Findings: No bruising. Neurological: Mental Status: She is alert and oriented to person, place, and time. Motor: No weakness. Exam: XR CHEST PORT 1 VIEW, 06/14/2024 8:46 AM Indication: evaluate in setting of worsening wheezing Comparison: 06/12/2024 Findings: Right IJ Port-A-Cath tip in the low superior vena cava. Left Port-A-Cath tip in the high superior vena cava. Heart and pulmonary vasculature within normal limits. Slight increase in the ill-defined opacity throughout the right lower lung. The pleural spaces are clear. Impression: Further increase in ill-defined opacity projecting over the right lower lung concerning for pneumonia. 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 She is hemodynamically stable with no increasing oxygen requirements or shortness of breath;with her pain being currently managed with IV dilaudid PRN q3h. She is on broad spectrum antibiotics with ceftriaxone and azithromycin, along with IV fluids. #Sickle Cell Anemia HbSS # Acute pain crisis On repeat chest xray it was noted that there was an increase in the ill defined opacities over the right lower lung lindsay concerning for pneumonia. She does not have respiratory distress, and continues to be hemodynamically stable. Given the Xray findings - it would be advisable to continue the broad spectrum antibiotics and follow up with the blood culture reports. Note that the viral respiratory panel was negative. There is no indication to transfuse at this point - would not improve pain symptoms, increased riskfor iron overload and higher risk for alloimmunization. Type and screen blood is ready -- in case there is cardiorespiratory instability or worsening hypoxia. She reports that she did not ask for the pain medication last night -- which would worsen the pain -- and make it difficult to sleep. We discussed if it would be okay if we could schedule the pain medication as a q2h or q3h with the option to decline if she does not feel like the need to take the pain medication. Recommendations: Continue with antibiotics (ceftriaxone and azithromycin) No indication to transfuse at the moment Incentive spirometry Type and screened blood ready if required PRN nebulization for wheezing Follow CBC to trend hemoglobin Follow up with blood culture reports Hematology will continue to follow. Patient seen and case discussed with attending: Dr. Ike Sifuentes Medical Student Hematology Consult Attending Attestation I reviewed the patient's history and pertinent medical records with student doctor Bear on 06/14/2024. We met with the patient and discussed our impression and recommendations. I agree with the assessment and plan of care as documented in the note below with the addition of the following: EVENTS/SUBJECTIVE She had some increased pain overnight and told us that she felt bad because everyone was so busy so she delayed asking for her PRN pain medication. She is feeling better today from pain control standpoint. She has some chest tightness but not yareli dyspnea, and remains on room air. DATA --Hemoglobin 6.9 today which is at/near baseline and would not advise transfusion at this time given risk iron overload, lack of clear symptoms related to anemia, low suspicion acute chest syndrome --Mild leukocytosis and thrombocytosis, likely reactive --Normal renal function IMPRESSION 29F with sickle cell (HbSS) disease here with acute vaso-occlusive pain crisis. She is doing well on room air from a respiratory standpoint and while she does have some chest pain/tightness, there isless clinical concern for acute chest syndrome given lack of true dyspnea, lack of oxygen requirement. It is, however, reasonable to continue antibiotics on the chance that she did have mild ACS at presentation. We also discussed with her that it is important she feel comfortable asking for pain medication as needed and she should not hesitate to ask out of fear that her care team is too busy to attend to her needs. RECOMMENDATIONS --Continue pain control at present dose, modify per primary team/pain plan and encourage her to askfor medicine when needed --Continue antibiotics as you are doing --Daily CBC with differential --Remainder per note above Araceli Ramires MD Date of Service: 06/14/2024 Overall, I spent 35 minutes today (DOS) [id number] and/or coordinating care as documented above and specifically listed as below: --Reviewing documentation related to patient's history and this current admission available in [facility] --Review and clinical interpretation of pertinent laboratory test results and radiology reports from this admission --Discussion of the patient's case with the members of the Hematology Consult Team --Discussion with the patient --Documentation in the electronic health record INSTALLER * Rl Elias MD - 06/14/2024 7:08 AM CST Resident/Fellow Attestation I, RL ELIAS MD, was present with the medical/TIFFANY student who participated in the service and in the documentation of the note. I have verified the history and personally performed the physical exam and medical decision making. I agree with the assessment and plan of care as documented in t he note. RL ELIAS MD PGY2 Date of Service (when I saw the patient): 06/14/24 [facility] Progress Note - Medicine Service, [facility] TEAM 1 Date of Admission: 06/12/2024 Assessment & Plan Gianna Hernández is a 29 year old female admitted on 06/12/2024. She Gianna Hernández is a 29 year old female admitted on 06/12/2024. She has a PMHx of sickle cell disease c/b multiple episodes of sickle cell pain crisis, ACS and avascular necrosis of the hip, PE, Stroke, Anxiety, who presents tot ED for evaluation of sickle cell pain and acute chest pain. Today's plan: - Heme following - Hbg 6.9 this morning, up trending. 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 Cardiac etiology considered but less likely given normal EKG and troponins. PE considered but less likely given no LE extremity and normal EKG. Acute Chest Syndrome and infectious process considered; patient has faint infiltrates on chest XR though similar to prior and has elevated WBC, but Pt denies fever, chills, cough, or difficulty breathing. Also she has been breathing comfortably on room air and no wheezing appreciated on exam. CXR negative for rib fractures. Respiratory panel negative. Given decreasing Hbg, presence of sickled RBCs on smear along with reticulocytes and target cells, sickle cell pain crisis is most likely cause of chest pain. Second chest XR on 06/14 showing slight increase of ill-defined focal opacity in addition to new wheezing on exam, WBC remains elevated but downtrending, 13.4 down from 17.0 on admission. Continuing IV ABx to continue to treat possible pneumonia. Remains afebrile, no cough, no SOB but feels some intermittent chest pressure and pain in her back Hbg baseline between 7-9, most recent Hbg 8.8 on 06/07 FOLDING MACHINE OPERATOR. Hb.5 -> 6.4 -> 6.8 -> 6.9 Plan: - Blood cultures pending x2 - NGTD - CTM hemoglobin daily - Ordered Voltaren gel, lidocaine patches, and icy hot PRN - Continue Ceftriaxone and Azithromycin for ppx (06/12 -*), consider transition to PO this afternoon - Continue FOLDING MACHINE OPERATOR hydroxyurea - Continue FOLDING MACHINE OPERATOR folic acid - Continue IS - type and screen ordered, consented for blood on 06/13 - no indication for transfusion unless hemodynamically unstable - Hematology consulted, appreciate recs - Hydromorphone 2 mg IV Q2H scheduled--titrate within 24-48 hours - Maintenance LR - Transfusion not recommended at this time - albuterol inhaler q6h, zofran, benadryl, docusate, senna PRN #Anxiety #Nausea - Continue FOLDING MACHINE OPERATOR Fluoxetine - Benadryl PRN per Pain Plan - Zofran PRN per Pain Plan #Insomnia - Melatonin prn Diet: Regular Diet Adult DVT Prophylaxis: Enoxaparin (Lovenox) SQ Santiago Catheter: Not present Lines: PRESENT Port a Cath 05/25/24 Single Lumen Left Chest wall-Site Assessment: WDL Cardiac Monitoring: None Code Status: Full Code Disposition Plan Medically Ready for Discharge: Anticipated in 2-4 Days The patient's care was discussed with the Attending Physician, Dr. Hall . Nivia Carvajal, MS3 Medical Student Medicine Service, [facility] TEAM [address] [place] [address] Securely message with [employer] (more info) Text page via [employer] Paging/Directory See signed in provider for up to date coverage information Interval History Reports increased pain overnight and this morning, particularly along back. Feeling fatigued. Usinginspiratory spirometer, discussed using albuterol nebs for wheezing Physical Exam Vital Signs: Temp: 98.4 ??F (36.9 ??C) Temp src: Oral BP: 119/76 Pulse: 83 Resp: 16 SpO2: 99 % O2 Device: None (Room air) Weight: 0 lbs 0 oz Constitutional: awake, alert, cooperative, no apparent distress, and appears stated age, appears tired Respiratory: Wheezing bilaterally with L>R on auscultation, no crackles. No increased work of breathing, good air exchange Cardiovascular: Normal apical impulse, regular rate and rhythm, normal S1 and S2, no S3 or S4, and no murmur noted, no LE edema Skin: normal skin color, texture, turgor Neuropsychiatric: General: normal, calm, and normal eye contact, Affect: normal and pleasant Medical Decision Making Please see A&P for additional details of medical decision making. Data I have personally reviewed the following data over the past 24 hrs: 15.3 (H) \ 6.8 (LL) / 495 (H) N/A N/A N/A / N/A N/A N/A N/A \ Imaging results reviewed over the past 24 hrs: No results found for this or any previous visit (from the past 24 hours). Cosigned by German Hall MD at 06/19/2024 8:50 AM FAN INSTALLER INSTALLER INSTALLER INSTALLER Associated attestation - German Hall MD - 06/19/2024 8:50 AM FAN INSTALLER Attestation: This patient has been seen and evaluated by me, German Hall MD. Discussed with the house staff team or resident(s) and agree with the findings and plan in this note. I have reviewed today's Medications, Vital Signs, and Labs. DOS 06/14 * Rl Elias MD - 06/13/2024 10:07 AM CST Resident/Fellow Attestation I, RL ELIAS MD, was present with the medical/TIFFANY student who participated in the service and in the documentation of the note. I have verified the history and personally performed the physical exam and medical decision making. I agree with the assessment and plan of care as documented in t he note. RL ELIAS MD PGY2 Date of Service (when I saw the patient): 06/13/24 [facility] Progress Note - Medicine Service, [facility] TEAM 1 Date of Admission: 06/12/2024 Assessment & Plan Gianna Hernández is a 29 year old female admitted on 06/12/2024. She Gianna Hernández is a 29 year old female admitted on 06/12/2024. She has a PMHx of sickle cell disease c/b multiple episodes of sickle cell pain crisis, ACS and avascular necrosis of the hip, PE, Stroke, Anxiety, who presents tothe ED for evaluation of sickle cell pain and acute chest pain. 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 Cardiac etiology considered but less likely given normal EKG and troponins. PE considered but less likely given no LE extremity and normal EKG. Acute Chest Syndrome and infectious process considered; patient has faint infiltrates on chest XR though similar to prior and has elevated WBC, but Pt denies fever, chills, cough, or difficulty breathing. Also she has been breathing comfortably on room air and no wheezing appreciated on exam. CXR negative for rib fractures. Respiratory panel negative. Given decreasing Hbg, presence of sickled RBCs on smear along with reticulocytes and target cells, sickle cell pain crisis is most likely cause of chest pain. 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 Hb.5 -> 6.4 Plan: -Blood cultures pending x2 -CTM hemoglobin daily -Continue Ceftriaxone and Azithromycin for ppx (06/12 -*) -Continue FOLDING MACHINE OPERATOR hydroxyurea -Continue FOLDING MACHINE OPERATOR folic acid - type and screen ordered, consented for blood - no indication for transfusion unless hemodynamic instability - Hematology consulted, appreciate recs -Hydromorphone 2 mg IV Q3H scheduled--titrate within 24-48 hours -Maintenance LR -Transfusion not recommended at this time - zofran, benadryl, docusate, senna PRN #Anxiety #Nausea -Continue FOLDING MACHINE OPERATOR Fluoxetine -Benadryl PRN per Pain Plan -Zofran PRN per Pain Plan #Insomnia -Melatonin prn Diet: Regular Diet Adult DVT Prophylaxis: Enoxaparin (Lovenox) SQ Santiago Catheter: Not present Lines: PRESENT Port a Cath 05/25/24 Single Lumen Left Chest wall-Site Assessment: WDL Cardiac Monitoring: None Code Status: Full Code Disposition Plan Medically Ready for Discharge: Anticipated in 2-4 Days The patient's care was discussed with the Attending Physician, Dr. Hall . Nivia Carvajal, MS3 Medical Student Medicine Service, [facility] [address] [place] [address] Securely message with [employer] (more info) Text page via [facility] Paging/Directory See signed in provider for up to date coverage information Interval History Feeling better this morning but still having intermittent chest pain on L side. Did not sleep well overnight due to being in hallway bed. Physical Exam Vital Signs: Temp: 98.2 ??F (36.8 ??C) Temp src: Oral BP: 109/67 Pulse: 71 Resp: 18 SpO2: 100 % O2 Device: None (Room air) Weight: 0 lbs 0 oz Constitutional: awake, alert, cooperative, no apparent distress, and appears stated age Respiratory: No increased work of breathing, good air exchange, clear to auscultation bilaterally, no crackles or wheezing Cardiovascular: Normal apical impulse, regular rate and rhythm, normal S1 and S2, no S3 or S4, and no murmur noted, no LE edema Skin: normal skin color, texture, turgor Neuropsychiatric: General: normal, calm, and normal eye contact Affect: normal and pleasant Medical Decision Making Please see A&P for additional details of medical decision making. Data I have personally reviewed the following data over the past 24 hrs: 17.0 (H) \ 6.4 (LL) / 458 (H) 135 105 4.9 (L) / 100 (H) 4.3 21 (L) 0.70 \ Trop: <6 BNP: N/A INR: 1.37 (H) PTT: N/A D-dimer: N/A Fibrinogen: N/A Imaging results reviewed over the past 24 hrs: Recent Results (from the past 24 hours) XR Chest 2 Views Narrative EXAM: XR CHEST 2 VIEWS LOCATION: [facility] DATE: 06/12/2024 INDICATION: CP COMPARISON: 06/03/2024, 05/27/2024 Impression IMPRESSION: A few faint peripheral reticulonodular opacities in the mid and lower lungs again seen.Lungs otherwise clear. No pleural effusion. No pneumothorax. Borderline cardiac enlargement unchanged. Port anterior right chest wall with right IJ central venous catheter tip low SVC. Port anterior left chest wall with left IJ central venous catheter tip low SVC. Cosigned by German Hall MD at 06/14/2024 8:25 AM FAN INSTALLER INSTALLER INSTALLER Associated attestation - German Hall MD - 06/14/2024 8:25 AM FAN INSTALLER Attestation: This patient has been seen and evaluated by me, German Hall MD. Discussed with the house staff team or resident(s) and agree with the findings and plan in this note. I have reviewed today's Medications, Vital Signs, and Labs. DOS 06/13 * Mary Flores MD - 06/12/2024 8:20 PM CST co director Hematology fellow note 29F Sickle cell disease (HbSS) presented with chest pain typical of prior pain crisis episodes (this has been present at multiple prior presentations per chart review, usually left anterior chest). No other respiratory symptoms. No signs of DVT. Not hypoxic Hb 7.5 (baseline 7-9) CXR shows few faint peripheral reticulonodular opacities in the mid and lower lungs, not much changed from prior cxr on my review. She has a history of pulmonary embolism during and acute illness/endocarditis in 2022. Acute chest seems less likely at this moment but of course needs ongoing close monitoring due to the risk. Pain plan. Inpatient: Opioid: Hydromorphone 2 mg IV Q3H scheduled--titrate within 24-48 hours LR at maintenance rate x 1-2 days Other Medications: Zofran, Oral Benadryl for anxiety Supportive Care: Docusate, Senna PRN Recommendations Pain control per pain plan Incentive spirometry Monitor hemoglobin daily in the acute phase Would not recommend transfusion at this time Monitor closely for worsening of clinical status If pain is persistent or other symptoms appear, may need to consider CTPE however in this patient who gets multiple radiological studies, the risk of radiation exposure needs to be considered as well. Oxygen as needed for hypoxia Incentive spirometry Ensure an active type and screen Please discuss with hematology if patient has a fever, hypoxia. Mary Flores MD MS Hematology fellow, PGY5 Pager: [phone] Cosigned by Kirstin Long MD at 06/13/2024 7:25 AM FAN INSTALLER INSTALLER INSTALLER INSTALLER Associated attestation - Kirstin Long MD - 06/13/2024 7:25 AM FAN INSTALLER Physician Attestation I discussed patient overnight with fellow neighborhood conservation officer. I agree with plan as outlined. I did not see thepatient on this date. Kirstin Long MD/PhD documented in this encounter H&P Notes * Laquita Kelley MD - 06/12/2024 9:37 PM CST [facility] History and Physical - Medicine Service, [facility] TE[facility] Date of Admission: 06/12/2024 Assessment & Plan Gianna Hernández is a 29 year old female admitted on 06/12/2024. She has a PMHx of sickle cell disease c/b multiple episodes of sickle cell pain crisis, ACS and avascular necrosis of the hipwho presents to the ED for evaluation of sickle cell pain and chest pain. #Acute chest syndrome #Sickle cell pain crisis Pt presented with acute onset left sided chest pain that began 2 days ago. Breathing comfortably onroom air. Denies palpitations, lightheadedness, or LE edema. Has been having back and leg pain which is typical of her prior pain crisis. Has recently gone the ED with similar symptoms. EKG showing sinus rhythm with troponin <6 making ACS less likely. Denies any fever, night sweats, cough, abdominal pain, nausea, vomiting or dysuria, however, does have leukocytosis on presentation. CXR showingfaint peripheral reticulonodular opacities. Denied any LE edema, with no sinus tachycardia on EKG, lowering concern for PE. Lower concern for HF as a potential factor with normal volume status on exam. CXR negative for rib fractures. Potential causes include pain vs infection. -Blood cultures x2 -Respiratory panel pending -Ceftriaxone and azithromycin -mIVF at 75ml/hr (for 10 hours), reassess in AM -Hematology consulted -Hydromorphone 2 mg IV Q3H scheduled--titrate within 24-48 hours -Transfusion not indicated at this time -Lovenox for DVT prophylaxis -Zofran prn for nausea #Sickle cell anemia #hx of avascular necrosis of left hip -Continue FOLDING MACHINE OPERATOR hydroxyurea -Continue FOLDING MACHINE OPERATOR folic acid -Transfuse for Hb<7 #Stroke reported on chart -Strength and sensation intact throughout. Mention of prior self reported history of stroke on chart. #Insomnia -Melatonin prn Diet: Regular DVT Prophylaxis: Enoxaparin (Lovenox) SQ Santiago Catheter: Not present Fluids: mIVF at 75ml/hr Lines: PRESENT Cardiac Monitoring: None Code Status: Full Clinically Significant Risk Factors Present on Admission # Hyperchloremia: Highest Cl = 109 mmol/L in last 2 days, will monitor as appropriate # Coagulation Defect: INR = 1.37 (Ref range: 0.85 - 1.15) and/or PTT = N/A, will monitor for bleeding # Anemia: based on hgb <11 # Financial/Environmental Concerns: Disposition Plan Expected Discharge Date: 06/14/2024 The patient's care was discussed with the Attending Physician, Dr. Jain . Laquita Kelley MD Medicine Service, [facility] Securely message with [employer] (Cloudwear info) Text page via [facility] Paging/Directory See signed in provider for up to date coverage information Chief Complaint Chest pain History is obtained from the patient History of Present Illness Gianna Hernández is a 29 year old female admitted on 06/12/2024. She has a PMHx of sickle cell disease c/b multiple episodes of sickle cell pain crisis, ACS and avascular necrosis of the hip who presents to the ED for evaluation of sickle cell pain and chest pain. Pt presented with acute onset left sided chest pain that began 2 days ago. Denies palpitations, lightheadedness, or LE edema. She is unsure of any triggering factors. Her chest pain does not worsen on exertion, but, worsens on palpation. She has been having back and leg pain which is typical of herprior pain crisis. She endorses it as being a soreness. Has recently gone the ED with similar symptoms and hasn't had relief with PO dilaudid at home. Denies any fever, night sweats, cough, abdominalpain, nausea, vomiting or dysuria, LE edema. She has been unable to sleep for the past 2 days due to her pain. She lives at home with her baby and partner. Denies smoking, alcohol or drug use. 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 Taking? FLUoxetine (PROZAC) 10 MG capsule No No Sig: Take 1 capsule (10 mg) by mouth daily. HYDROmorphone (DILAUDID) 2 MG tablet No No Sig: Take 2 tablets (4 mg) by mouth every 6 hours as needed for severe pain. folic acid (FOLVITE) 1 MG tablet No No Sig: Take 1 tablet (1 mg) by mouth daily. hydroxyurea (HYDREA) 500 MG capsule No No Sig: Take 2 capsules (1,000 mg) by mouth 2 times daily multivitamin, therapeutic (THERA-VIT) TABS tablet No No Sig: Take 1 tablet by mouth daily. naloxone (NARCAN) 4 MG/0.1ML nasal spray No No Sig: Leonard 1 spray (4 mg) into one nostril alternating nostrils as needed for opioid reversal (for opiate overdose if not breathing and unconscious. have your family member watch video on how to use/read information sheet). every 2-3 minutes until assistance arrives Facility-Administered Medications: None Physical Exam Vital Signs: Temp: 98.4 ??F (36.9 ??C) Temp src: Oral BP: 113/73 Pulse: 100 Resp: 20 SpO2: 96 % O2 Device: None (Room air) Weight: 0 lbs 0 oz General Appearance: A&Ox3. In no acute distress Respiratory: CTAB Cardiovascular: RRR GI: Soft, nontender, nondistended Skin: No rashes on exposed skin Other: Bilateral lumbar paraspinal tenderness Medical Decision Making Cosigned by Andres Jain DO at 06/12/2024 10:27 PM FAN INSTALLER INSTALLER INSTALLER INSTALLER INSTALLER Associated attestation - Andres Jain DO - 06/12/2024 10:27 PM FAN INSTALLER Physician Attestation I saw this patient with the resident and agree with the resident/fellow's findings and plan of careas documented in the note. Kenney findings: Sickle cell related pain including the left anterior chest. No overt infiltrates, dyspnea, or hypoxemia to suggest acute chest; nonetheless she reports similar symptoms as in prior acute chest syndrome episodes so we will admit and closely monitor, with fluids and oximetry alongside analgesia. Hematology input is appreciated. Please see A&P for additional details of medical decision making. MANAGEMENT DISCUSSED with the following over the past 24 hours: hematology, ED I have personally reviewed the following data over the past 24 hrs: 12.5 (H) \ 7.5 (L) / 542 (H) 139 109 (H) 5.9 (L) / 97 4.3 21 (L) 0.61 \ Trop: <6 BNP: N/A INR: 1.37 (H) PTT: N/A D-dimer: N/A Fibrinogen: N/A Andres Jain DO Date of Service (when I saw the patient): 06/12/24 documented in this encounter Consult Notes * Katheryn Carter RN - 06/13/2024 10:44 AM CSTAssociated Order(s): CARE MANAGEMENT / SOCIAL WORK IP CONSULT Care Management Initial Consult General Information Assessment completed with: Patient, Type of CM/SW Visit: Initial Assessment Primary Care Provider verified and updated as needed: Yes Readmission within the last 30 days: other (see comments) (Exacerbation) Advance Care Planning: Advance Care Planning Reviewed: no concerns identified Communication Assessment Patient's communication style: spoken language (Welsh or Bilingual) Cognitive Cognitive/Neuro/Behavioral: WDL Living Environment: People in home: child(jese), dependent, significant other Vineet and 2 years old daughter Current living Arrangements: house Able to return to prior arrangements: Family/Social Support: Care provided by: self Provides care for: Marital Status: Domestic Partnership Support system: Significant Other Vineet Description of Support System: Supportive, Involved Current Resources: Patient receiving home care services: No Community Resources: None Equipment currently used at home: none Supplies currently used at home: None Employment/Financial: Employment Status: unemployed Financial Concerns: none Does the patient's insurance plan have a 3 day qualifying hospital stay waiver? No Lifestyle & Psychosocial Needs: Social Drivers of Health Food Insecurity: Low Risk (04/09/2024) Food Insecurity Within the past 12 months, did you worry that your food would run out before you got money to buy more?: No Within the past 12 months, did the food you bought just not last and you didn???t have money to getmore?: No Depression: Not at risk (04/11/2024) Received from [facility] PHQ-2 PHQ-2 TOTAL SCORE: 1 Housing Stability: Low Risk (04/09/2024) Housing Stability Do you have housing? : Yes Are you worried about losing your housing?: No Tobacco Use: Low Risk (06/12/2024) Patient History Smoking Tobacco Use: Never Smokeless Tobacco Use: Never Passive Exposure: Not on file Financial Resource Strain: Low Risk (04/09/2024) Financial Resource Strain Within the past 12 months, have you or your family members you live with been unable to get utilities (heat, electricity) when it was really needed?: No Alcohol Use: Not on file Transportation Needs: Low Risk (04/09/2024) Transportation Needs Within the past 12 months, has lack of transportation kept you from medical appointments, getting your medicines, non-medical meetings or appointments, work, or from getting things that you need?: No Physical Activity: Not on file Interpersonal Safety: Low Risk (05/25/2024) Interpersonal Safety Do you feel physically and emotionally safe where you currently live?: Yes Within the past 12 months, have you been hit, slapped, kicked or otherwise physically hurt by someone?: No Within the past 12 months, have you been humiliated or emotionally abused in other ways by your partner or ex-partner?: No Stress: Not on file Social Connections: Socially Integrated (03/28/2024) Received from [facility] Social Connections Do you often feel lonely or isolated from those around you?: 0 Health Literacy: Not on file Functional Status: Prior to admission patient needed assistance: Dependent ADLs:: Independent Dependent IADLs:: Independent Mental Health Status: Mental Health Status: No Current Concerns Chemical Dependency Status: Chemical Dependency Status: No Current Concerns Values/Beliefs: Spiritual, Cultural Beliefs, Advent Practices, Values that affect care: no Discussed ???Partnership in Safe Discharge Planning??? document with patient/family: Yes: patient Additional Information: Met with patient at bedside fr initial consult due to high risk score. Patient confirmed living at the house address son dallin with significant other and her 2 years old daughter. Patient mentioned being independent with her care at home. Patient drives and family can provide ride at discharge. Patient said she is not currently working. Patient confirmed her current insurance and PCP. PCP updated. No discharge need currently identified. Next Steps: CC will continue to follow. Katheryn Carter RN, PHN, BSN Float Nurse Generator Worker Covering for Unit ED Phone [phone] INSTALLER * Kirstin Long MD - 06/13/2024 10:17 AM CSTAssociated Order(s): HEMATOLOGY ADULT IP CONSULT Images from the original note were not included. Hematology Consult Note Date of Service: 06/13/2024 Patient: Gianna Hernández Admission Date: 06/12/2024 Hospital Day # 1 Hematology Diagnosis: Sickle Cell Disease - HbSS Primary Outpatient Shooting Gallery Operator: Dr Samuel Current Treatment Plan: Inpatient: Opioid: Hydromorphone 2 mg IV Q3H scheduled--titrate within 24-48 hours LR at maintenance rate x 1-2 days Other Medications: Zofran, Oral Benadryl for anxiety Supportive Care: Docusate, Senna PRN Reason for Consult: Sickle cell anemia presenting with acute chest pain Assessment & Plan: # Sickle Cell Anemia HbSS # Acute pain crisis Gianna Hernández is a 29 year old female with HbSS sickle cell anemia who presents with acute chest pain. ECG shows normal sinus rhythm and her CXR is notable only for faint peripheral reticulonodular opacities (which are relatively unchanged from her previous studies). Given then she is afebrile, hemodynamically stable, and does not have increasing oxygen requirements, and is maintaining saturation on room air -- it is less likely that she has acute chest syndrome. Her pain is managed with her pain plan of IV dilaudid. Also to note, she has had drops in hemoglobin in the past during her pain crises. There is no indication to transfuse at this point since she is hemodynamically stable with no acutehypoxic respiratory symptoms. Transfusing would not help with her pain crisis, and would increase the risk of alloimmunization and iron overload. For now, we would recommend de-escalating the antibiotics per the primary team, and manage pain with the inpatient plan in place. It would be advisable to actively type and screen for blood and keep it ready incase she develops worsening cardiovascular instability. Minimal wheezing noted on lung exam - would advise nebulization to see if it improves. Recommendations: -- Do not recommend transfusion at this time -- Pain management per plan -- Type and screen for blood -- Oxygen as required for hypoxia -- Nebulization and reassess respiratory status -- Incentive spirometry Hematology will continue to follow Thank you for this consult and the opportunity to treat this pleasant patient. We will continue to follow this patient. Please do not hesitate to page with any questions or concerns. Patient was seen and plan of care was discussed with attending physician Dr. Long. David Sifuentes Medical Student Physician Attestation I, Kirstin Long MD/PhD, was present with the medical/TIFFANY student who participated in the service and in the documentation of the note. I have verified the history and personally performed the physical exam and medical decision making. I agree with the assessment and plan of care as documented in the note. Kenney findings: patient with drop in hemoglobin but is on room air without an infiltrates on chest x-ray and remains afebrile. This makes acute chest less likely. Wheezing on exam-- would start nebs and continue with pain control. If patient develops new hypoxia or worsening respiratory function would consider transfusion. Please see A&P for additional details of medical decision making. Tests personally interpreted in the past 24 hours: - CHEST XRAY showing absence of infiltrates I have personally reviewed the following data over the past 24 hrs: 17.0 (H) \ 6.4 (LL) / 458 (H) 135 105 4.9 (L) / 100 (H) 4.3 21 (L) 0.70 \ Trop: <6 BNP: N/A INR: 1.37 (H) PTT: N/A D-dimer: N/A Fibrinogen: N/A Kirstin Long MD/PhD Date of Service (when I saw the patient): 06/13/24 History of Present Illness: Gianna Hernández is a 29 year old female with a history of HbSS sickle cell anemia who presents to the ED with complains of chest pain. She has had multiple ER visits with her flares of chronic pain. She reports that her pain is typical of a pain crisis, and reports that the pain radiates to her back. She describes the pain as a 7/10 and reports improvement with IV opioid analgesics. She denies any cough, wheezing, shortness of breath, but states that she has trouble taking full breaths due to the pain. She also reports a mild migraine headache, which also improved with opioid analgesics. She reports feeling fatigues and tired. She does not report any fevers, chills, night sweats, hemoptysis or dizziness. She denies any weakness in her arms or legs, and she does not endorse any changes in her vision or blurring of vision. She reports eating well, and does not endorse feeling dehydrated. Review of Systems Constitutional: Positive for malaise/fatigue. Negative for chills and fever. HENT: Negative for sore throat. Eyes: Negative for blurred vision. Respiratory: Negative for cough, hemoptysis and shortness of breath. Cardiovascular: Positive for chest pain. Negative for leg swelling. Gastrointestinal: Negative for abdominal pain and diarrhea. Genitourinary: Negative for hematuria. Musculoskeletal: Positive for back pain and neck pain. Skin: Negative for rash. Neurological: Positive for headaches. Negative for focal weakness, loss of consciousness and weakness. Endo/Heme/Allergies: Does not bruise/bleed easily. Hematological History / Complications : -- AVN of hip -- History of retinopathy -- History of stroke (reports not available - MRI scheduled) -- History of gall stones and intermittent cholecystitis -- History of iron overload (and was previously on Jardenu) -- History of pulmonary embolus (treated with anticoagulation) Review of Systems: Constitutional: Positive for malaise/fatigue. Negative for chills and fever. HENT: Negative for sore throat. Eyes: Negative for blurred vision. Respiratory: Negative for cough, hemoptysis and shortness of breath. Cardiovascular: Positive for chest pain. Negative for leg swelling. Gastrointestinal: Negative for abdominal pain and diarrhea. Genitourinary: Negative for hematuria. Musculoskeletal: Positive for back pain and neck pain. Skin: Negative for rash. Neurological: Positive for headaches. Negative for focal weakness, loss of consciousness and weakness. Endo/Heme/Allergies: Does not bruise/bleed easily. 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 Family History Family History Problem Relation Age of Onset Sickle Cell Trait Daughter Outpatient Medications: Current Facility-Administered Medications Medication Dose Route Frequency Provider Last Rate Last Admin azithromycin (ZITHROMAX) 500 mg in sodium chloride 0.9 % 250 mL intermittent infusion 500 mg Intravenous Q24H Laquita Kelley MD calcium carbonate (TUMS) chewable tablet 1,000 mg 1,000 mg Oral 4x Daily PRN Laquita Kelley MD cefTRIAXone (ROCEPHIN) 2 g vial to attach to NS 100 ml bag for ADULTS or NS 50 ml bag for PEDS 2 g Intravenous Q24H Laquita Kelley MD diphenhydrAMINE (BENADRYL) capsule 25 mg 25 mg Oral Q6H PRN Laquita Kelley MD Or diphenhydrAMINE (BENADRYL) injection 25 mg 25 mg Intravenous Q6H PRN Laquita Kelley MD 25 mg at 06/13/24 0539 enoxaparin ANTICOAGULANT (LOVENOX) injection 40 mg 40 mg Subcutaneous Q24H Laquita Kelley MD 40 mgat 06/13/24 0749 FLUoxetine (PROzac) capsule 10 mg 10 mg Oral Daily Laquita Kelley MD 10 mg at 06/13/24 0750 folic acid (FOLVITE) tablet 1 mg 1 mg Oral Daily Laquita Kelley MD 1 mg at 06/13/24 0749 hydromorphone (DILAUDID) injection 2 mg 2 mg Intravenous Q2H PRN Joni Mcbride MD 2 mg at 06/13/24 0958 hydroxyurea (HYDREA) capsule 1,000 mg 1,000 mg Oral BID Laquita Kelley MD 1,000 mg at 06/13/24 0750 lidocaine (LMX4) cream Topical Q1H PRN Laquita Kelley MD lidocaine 1 % 0.1-1 mL 0.1-1 mL Other Q1H PRN Laquita Kelley MD melatonin tablet 5 mg 5 mg Oral At Bedtime PRN Laquita Kelley MD 5 mg at 06/13/24 0128 ondansetron (ZOFRAN ODT) ODT tab 4 mg 4 mg Oral Q6H PRN Laquita Kelley MD Or ondansetron (ZOFRAN) injection 4 mg 4 mg Intravenous Q6H PRN Laquita Kelley MD senna-docusate (SENOKOT-S/PERICOLACE) 8.6-50 MG per tablet 1 tablet 1 tablet Oral BID PRN Laquita Kelley MD Or senna-docusate (SENOKOT-S/PERICOLACE) 8.6-50 MG per tablet 2 tablet 2 tablet Oral BID PRN Laquita Kelley MD sodium chloride (PF) 0.9% PF flush 3 mL 3 mL Intracatheter Q8H Laquita Kelley MD 3 mL at 06/12/24 2330 sodium chloride (PF) 0.9% PF flush 3 mL 3 mL Intracatheter q1 min prn Laquita Kelley MD Current Outpatient Medications Medication Sig Dispense Refill FLUoxetine (PROZAC) 10 MG capsule Take 1 capsule (10 mg) by mouth daily. 40 capsule 1 folic acid (FOLVITE) 1 MG tablet Take 1 tablet (1 mg) by mouth daily. 30 tablet 11 HYDROmorphone (DILAUDID) 2 MG tablet Take 2 tablets (4 mg) by mouth every 6 hours as needed for severe pain. 40 tablet 0 hydroxyurea (HYDREA) 500 MG capsule Take 2 capsules (1,000 mg) by mouth 2 times daily 120 capsule 11 multivitamin, therapeutic (THERA-VIT) TABS tablet Take 1 tablet by mouth daily. 30 tablet 11 naloxone (NARCAN) 4 MG/0.1ML nasal spray Leonard 1 spray (4 mg) into one nostril alternating nostrilsas needed for opioid reversal (for opiate overdose if not breathing and unconscious. have your family member watch video on how to use/read information sheet). every 2-3 minutes until assistance arrives 2 each 0 Physical Exam: Blood pressure 109/67, pulse 71, temperature 98.2 ??F (36.8 ??C), temperature source Oral, resp. rate 18, SpO2 100%. General: alert and cooperative, lying in bed, no acute distress HEENT: sclera anicteric, conjunctival pallor present CV: RRR, no murmurs, normal heart sounds Resp: normal respiratory effort on ambient air, mild wheezing present over posterior middle lung lindsay GI: soft, non-tender, non-distended, liver and spleen not palpable MSK: warm and well-perfused, normal tone, no joint swelling, redness or pain Skin: no rashes on limited exam, no jaundice, no leg ulcers Neuro: Alert and interactive, no focal deficits or weakness Labs & Studies: I personally reviewed the following studies: ROUTINE LABS (Last four results): CMP Recent Labs Lab 06/13/24 0559 06/12/24191606/07/24 1315 NA 135 139 139 POTASSIUM 4.3 4.3 4.4 CHLORIDE 105 109* 109* CO2 21* 21* 22 ANIONGAP 9 9 8 GLC 100* 97 98 BUN 4.9* 5.9* 7.4 CR 0.70 0.61 0.66 GFRESTIMATED >90 >90 >90 EVELIN 8.7* 9.4 9.3 CBC Recent Labs Lab 06/13/24 0600 06/12/24191606/07/24 1315 WBC 17.0* 12.5* 13.7* RBC 2.11* 2.44* 2.80* HGB 6.4* 7.5* 8.8* HCT 20.3* 22.2* 25.3* MCV 96 91 90 MCH 30.3 30.7 31.4 MCHC 31.5 33.8 34.8 RDW 19.8* 19.5* 19.4* PLT 458* 542* 516* INR Recent Labs Lab 06/12/241916 INR 1.37* Imaging EXAM: XR CHEST 2 VIEWS LOCATION: [facility] DATE: 06/12/2024 INDICATION: CP COMPARISON: 06/03/2024, 05/27/2024 IMPRESSION: A few faint peripheral reticulonodular opacities in the mid and lower lungs again seen.Lungs otherwise clear. No pleural effusion. No pneumothorax. Borderline cardiac enlargement unchanged. Port anterior right chest wall with right IJ central venous catheter tip low SVC. Port anterior left chest wall with left IJ central venous catheter tip low SVC. INSTALLER documented in this encounter ED Notes * Juhi Crump RN - 06/12/2024 6:55 PM CST Bed: [facility] Expected date: Expected time: Means of arrival: Comments: SICK INSTALLER * Lebron Aponte RN - 06/12/2024 6:34 PM CST Pt ambulatory to triage with CC of sickle cell pain in the L upper anterior chest. Was seen for this at [facility] last night. Reports interventions at [facility] were helpful, however pain has returned. Patient reports taking 4mg po Dilaudid at 1500 with partial relief of pain but is still severe. Contacted oil gas and pipe tester and was instructed to come to [facility]. Reports SOB a little bit. It hurts to take a deep breath. Denies dizziness. Triage Assessment (Adult) Row Name 06/12/24 1013 Triage Assessment Airway WDL WDL Respiratory WDL Respiratory WDL WDL Skin Circulation/Temperature WDL Skin Circulation/Temperature WDL WDL Cardiac WDL Cardiac WDL X;chest pain Chest Pain Assessment Chest Pain Location anterior chest, left Peripheral/Neurovascular WDL Peripheral Neurovascular WDL WDL Cognitive/Neuro/Behavioral WDL Cognitive/Neuro/Behavioral WDL WDL [place] Coma Scale Best Eye Response 4-->(E4) spontaneous Best Motor Response 6-->(M6) obeys commands Best Verbal Response 5-->(V5) oriented [place] Coma Scale Score 15 INSTALLER * Abdelrahman Goddard MD - 06/12/2024 6:20 PM CST Images from the original note were not included. [place] [facility] ([facility] [place] [place]) 06/12/24 ED PROVIDER NOTE History No chief complaint on file. KARL Hernández is a 29 year old female with a past medical history of sickle cell pain crisis, stroke, ANGIE, chronic pain syndrome, and Hb sliding scale disease without crisis, who presents to theED for evaluation of sickle cell pain and chest pain. Patient reports having acute chest pain that radiates to her back for the past 2 days. She states that this chest pain is normal with a sickle cell crisis. Patient usually has pain in her back and legs. She reports that she was seen in the ED yesterday but they did not run any blood tests. She expresses concern because she has been having multiple crises back to back. Her baseline hemoglobin is 8-9. Endorses having trouble taking deep breaths. Denies any new leg swelling, cough, fever. She states she takes dilaudid for her pain. Per patient's care plan: EMERGENCY CARE PLAN Please note that you do not need to have labs done every time she comes in just for pain. There areno laboratory tests for pain and in the absence of respiratory symptoms, chest x-rays are unlikely to offer much more information and sickle cell disease. In addition, sickle cell disease should be considered an accelerated aging disease and thus continued radiation may the risk of malignancy. Straightforward pain crises can be managed just with pharmaceutical interventions and not laboratory testing. Also, her pain is likely driven by mental health concerns, which she has acknowledged, and she has been referred to mental health as of early May 2024. 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 ER/Acute Care/Infusion Clinic: ? Hydromorphone 2 mg IVP/SC Q1H X 3 doses ? LR 500 ml/hr x 2 hours (1 L total) ? Other: Zofran 8 mg IV ? Inpatient: ? Opioid: Hydromorphone 2 mg IV Q3H scheduled-titrate within 24-48 hours ? LR at maintenance rate x 1-2 days ? Other Medications: Zofran, Oral Benadryl for anxiety ? 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, sickle retinopathy Stroke (H) unclear location, self-report Past Surgical History: Procedure Laterality Date ARTHROPLASTY KNEE Left details unclear IR CHEST PORT PLACEMENT > 5 YRS OF AGE 105/25/2024 IR CHEST PORT PLACEMENT > 5 YRS OF AGE 105/25/2024 TONSILLECTOMY & ADENOIDECTOMY Bilateral FLUoxetine (PROZAC) 10 MG capsule folic acid (FOLVITE) 1 MG tablet HYDROmorphone (DILAUDID) 2 MG tablet hydroxyurea (HYDREA) 500 MG capsule multivitamin, therapeutic (THERA-VIT) TABS tablet naloxone (NARCAN) 4 MG/0.1ML nasal spray Allergies Allergen Reactions Banana Anaphylaxis, Hives and [...] Hives Acetaminophen Hives Cashew Nut Oil Hives Family History Family History Problem Relation Age of Onset Sickle Cell Trait Daughter Social History Social History Tobacco Use Smoking status: Never Smokeless tobacco: Never Substance Use Topics Alcohol use: Not Currently Drug use: Never A complete review of systems was performed with pertinent positives and negatives noted in the HPI,and all other systems negative. Physical Exam Physical Exam Constitutional: General: She is not in acute distress. Appearance: Normal appearance. She is not diaphoretic. HENT: Head: Atraumatic. Mouth/Throat: Mouth: Mucous membranes are moist. Eyes: General: No scleral icterus. Conjunctiva/sclera: Conjunctivae normal. Cardiovascular: Rate and Rhythm: Normal rate. Pulses: Normal pulses. Heart sounds: Normal heart sounds. No murmur heard. Pulmonary: Effort: No respiratory distress. Breath sounds: Normal breath sounds. No stridor. No wheezing, rhonchi or rales. Chest: Chest wall: No tenderness. Abdominal: General: Abdomen is flat. Musculoskeletal: Cervical back: Neck supple. Skin: General: Skin is warm. Findings: No rash. Neurological: Mental Status: She is alert. ED Course, Procedures, & Data Procedures EKG Interpretation: Interpreted by Jovanny Hernadez Time reviewed: 18:40:00 Symptoms at time of EKG: chest pain Rhythm: normal sinus Rate: 94BPM [place]: Normal Ectopy: none Conduction: normal ST Segments/ T Waves: No ST-T wave changes Q Waves: none Comparison to prior: similar to prior but deeper inferior Q waves Clinical Impression: normal EKG Results for orders placed or performed during the hospital encounter of 06/11/24 ECG 12-LEAD WITH MUSE (LHE) Status: None Result Value Ref Range Systolic Blood Pressure mmHg Diastolic Blood Pressure mmHg Ventricular Rate 102 BPM Atrial Rate 102 BPM TX Interval 158 ms QRS Duration 78 ms QT 348 ms QTc 453 ms P [place] 39 degrees R AXIS 66 degrees T [place] 33 degrees Interpretation ECG Sinus tachycardia Nonspecific T wave abnormality Abnormal ECG When compared with ECG of 05-Jun-2024 11:40, No significant change was found Confirmed by SEE ED PROVIDER NOTE FOR, ECG INTERPRETATION ([id number]), field map editor SELMA GARRISON ([id number]) on 06/11/2024 9:05:27 PM Medications - No data to display Labs Ordered and Resulted from Time of ED Arrival to Time of ED Departure - No data to display No orders to display Critical care was not performed. Medical Decision Making The patient's presentation was of high complexity (an acute health issue posing potential threat tolife or bodily function). The patient's evaluation involved: review of external note(s) from 3+ sources (see separate area of note for details) review of 3+ test result(s) ordered prior to this encounter (see separate area of note for details) ordering and/or review of 3+ test(s) in this encounter (see separate area of note for details) The patient's management necessitated high risk (a decision regarding hospitalization). Assessment & Plan Patient presents to the emergency room for chest pain and a possible sickle cell pain crisis As patient's EKG is reassuring, troponin is negative, I doubt ACS at this point Given chest x-ray showing possible infiltrates, history of sickle cell acute chest syndrome, will treat like acute chest with IV antibiotics as well as fluids Labs as reviewed and interpreted by me are significant for hemoglobin of 7.5 which is slightly lower than baseline, but given patient's high risk for transfusions, will defer infusion to inpatient team Discussed case with hematology oncology who had no additional recommendations Discussed case with internal medicine physician Dr. Jain who accepted patient for admission. I have reviewed the nursing notes. I have reviewed the findings, diagnosis, plan and need for follow up with the patient. New Prescriptions No medications on file Final diagnoses: None Jovanny Long, am serving as a trained medical writer to document services personally performed by Abdelrahman Goddrad MD, based on the provider's statements to me. Abdelrahman Long MD, was physically present and have reviewed and verified the accuracy of this note documented by Jovanny Hernadez. Abdelrahman Goddard MD [facility] EMERGENCY DEPARTMENT 06/12/2024 Abdelrahman Goddard MD 06/12/242023 INSTALLER documented in this encounter Miscellaneous Notes * Plan of Care - Clay Avina RN - 06/15/2024 9:55 AM CST Goal Outcome Evaluation: Plan of Care Reviewed With: patient Overall Patient Progress: improving 4x A/O. VSS. RA. Independent. AVS reviewed, questions answered. Port de accessed with saline flush and heparin locked. INSTALLER * Plan of Care - Kathy Levy RN - 06/15/2024 6:22 AM CST Goal Outcome Evaluation: Plan of Care Reviewed With: patient Overall Patient Progress: improving Pt is alert anf oriented x4. VSS, on room air with no SOB noted. On pain management for sickle cellcrisis. Tolerating diet well with no n/v. L chest port infusing intermittent IV ABT. Voiding well. 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 Pt is up ad chandler. Will continue with plan of care. INSTALLER * Plan of Care - Clay Avina RN - 06/14/2024 5:02 PM CST Goal Outcome Evaluation: Plan of Care Reviewed With: patient Overall Patient Progress: improving 4x A/O. VSS. Independent. Pain controlled with schedule q2hr IV dilaudid. Tolerating regular diet. Voiding spontaneously. Had nausea in AM, relieved with Zofran. Port SL. INSTALLER * Pharmacy-Admission Medication History - Lucio Lorenza - 06/14/2024 11:19 AM CST Burnishing Machine Operator Admission Medication History Admission medication history is complete. The information provided in this note is only as accurateas the sources available at the time of the update. Information Source(s): Patient and CareEverywhere/SureScripts via in-person Pertinent Information: Medication reconciliation completed at bedside with patient. Patient was a good historian of her medication names, doses, frequencies, and last doses. Changes made to FOLDING MACHINE OPERATOR medication list: Added: Epi-pen: patient has pen available, but has not used recently. Ibuprofen: OTC product used PRN for pain. Benadryl: OTC product used PRN for itching due to hydromorphone. Deleted: None Changed: None Allergies reviewed with patient and updates made in EHR: yes Medication History Completed By: Lorenza Valdes 06/14/2024 11:19 AM FOLDING MACHINE OPERATOR Med List Medication Sig Last Dose/Taking diphenhydrAMINE (BENADRYL) 25 MG tablet Take 1-2 tablets by mouth every 6 hours as needed for itching. Past Week EPINEPHrine (ANY BX GENERIC EQUIV) 0.3 MG/0.3ML injection 2-pack Inject 0.3 mg into the muscle as needed for anaphylaxis. May repeat one time in 5-15 minutes if response to initial dose is inadequate. Taking As Needed ibuprofen (ADVIL/MOTRIN) 200 MG tablet Take 200 mg by mouth every 6 hours as needed for pain. Past Week FLUoxetine (PROZAC) 10 MG capsule Take 1 capsule (10 mg) by mouth daily. 06/11/2024 Morning folic acid (FOLVITE) 1 MG tablet Take 1 tablet (1 mg) by mouth daily. 06/11/2024 Morning HYDROmorphone (DILAUDID) 2 MG tablet Take 2 tablets (4 mg) by mouth every 6 hours as needed for severe pain. 06/11/2024 Morning hydroxyurea (HYDREA) 500 MG capsule Take 2 capsules (1,000 mg) by mouth 2 times daily 06/11/2024 Evening multivitamin, therapeutic (THERA-VIT) TABS tablet Take 1 tablet by mouth daily. 06/11/2024 Morning naloxone (NARCAN) 4 MG/0.1ML nasal spray Leonard 1 spray (4 mg) into one nostril alternating nostrilsas needed for opioid reversal (for opiate overdose if not breathing and unconscious. have your family member watch video on how to use/read information sheet). every 2-3 minutes until assistance arrives Taking As Needed Cosigned by Terrell Fernandez RPH at 06/15/2024 10:33 AM FAN INSTALLER INSTALLER INSTALLER Associated attestation - Terrell Fernandez RPH - 06/15/2024 10:33 AM FAN INSTALLER I have read and agree with the student's note. Terrell Fernandez, PGY-1 Lagging Machine Operator * Provider Notification - Kiik Caal RN - 06/13/2024 7:27 PM FAN INSTALLER Notified providers Nivia Carvajal, Laquita Kelley and Rl Elias of critical Hgb 6.8 at 1920. No new orders INSTALLER * Plan of Care - Katheryn Carter RN - 06/13/2024 12:44 PM CST Goal Outcome Evaluation: Plan of Care Reviewed With: patient Overall Patient Progress: improvingOverall Patient Progress: improving Outcome Evaluation: Plan: TBD Katheryn Carter RN, PHN, BSN Float Nurse Generator Worker Covering for Unit ED Phone [phone] INSTALLER * Plan of Care - Shauna Cuadra RN - 06/13/2024 6:13 AM CST Goal Outcome Evaluation: Plan of Care Reviewed With: patient Overall Patient Progress: improving Neuro: A&Ox4. Cardiac: VSS. Respiratory: Sating well on RA. GI/: Adequate urine output. BM X1 Diet/appetite: Tolerating regular diet. Eating well. Activity: Independent up to chair and in halls. Pain: At acceptable level on current regimen. Dilaudid q2hrs PRN. Skin: No new deficits noted. LDA's: Port running 75 mL of LR/hr. PRN benadryl for itchiness. Plan: Continue with POC. Notify primary team with changes. 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 Author Pain Management General On track( 025 12:40 PM FAN INSTALLER) Yes Juhi Benson, SOFIA Note: Goal Statement: I will establish a [...] Priority Date/Time Associated Diagnosis Comments CBC WITH PLATELETS AND DIFFERENTIAL STAT 06/15/2024 6:09 AM FAN INSTALLER CBC WITH PLATELETS & DIFFERENTIAL STAT 06/15/2024 6:09 AM FAN INSTALLER BASIC METABOLIC PANEL STAT 06/15/2024 6:09 AM FAN INSTALLER XR CHEST PORT 1 VIEW STAT 06/14/2024 8:46 AM FAN INSTALLER BASIC METABOLIC PANEL STAT 06/14/2024 7:08 AM FAN INSTALLER CBC WITH PLATELETS STAT 06/14/2024 7: 08 AM FAN INSTALLER CBC WITH PLATELETS STAT 06/13/2024 6: 32 PM FAN INSTALLER RBC AND PLATELET MORPHOLOGY STAT 06/13/2024 6:00 AM FAN INSTALLER CBC WITH PLATELETS AND DIFFERENTIAL STAT 06/13/2024 6:00 AM FAN INSTALLER CBC WITH PLATELETS & DIFFERENTIAL STAT 06/13/2024 6:00 AM FAN INSTALLER BASIC METABOLIC PANEL STAT 06/13/2024 5:59 AM FAN INSTALLER RESPIRATORY PANEL PCR STAT 06/12/2024 9:34 PM FAN INSTALLER BLOOD CULTURE STAT 06/12/2024 8:46 PM FAN INSTALLER BLOOD CULTURE STAT 06/12/2024 8:46 PM FAN INSTALLER XR CHEST 2 VIEWS STAT 06/12/2024 7:38 PM FAN INSTALLER RBC AND PLATELET MORPHOLOGY STAT 06/12/2024 7:17 PM FAN INSTALLER CBC WITH PLATELETS AND DIFFERENTIAL STAT 06/12/2024 7:17 PM FAN INSTALLER TYPE AND SCREEN, ADULT Routine 06/12/2024 7:17 PM FAN INSTALLER TROPONIN T, HIGH SENSITIVITY STAT 06/12/2024 7:17 PM FAN INSTALLER CBC WITH PLATELETS & DIFFERENTIAL STAT 06/12/2024 7:17 PM FAN INSTALLER INR STAT 06/12/2024 7:17 PM FAN INSTALLER BLOOD GAS VENOUS STAT 06/12/2024 7:17 PM FAN INSTALLER ABO/RH TYPE AND SCREEN Add-On 06/12/2024 7:17 PM FAN INSTALLER BASIC METABOLIC PANEL STAT 06/12/2024 7:17 PM FAN INSTALLER EKG 12-LEAD, TRACING ONLY STAT 06/12/2024 6:37 PM FAN INSTALLER documented in this encounter Results * (ABNORMAL) CBC with platelets and differential (06/15/2024 6:09 AM FAN INSTALLER) [facility] WBC Count 11.8(H) 4.0 - 11.0 10e3/uL 06/15/2024 6:36 AM FAN INSTALLER [facility] RBC Count 2.27(L) 3.80 - 5.20 10e6/uL 06/15/2024 6:36 AM FAN INSTALLER [facility] Hemoglobin 7.2(L) 11.7 - 15.7 g/dL 06/15/2024 6:36 AM FAN INSTALLER [facility] Hematocrit 20.4(L) 35.0 - 47.0 % 06/15/2024 6:36 AM FAN INSTALLER [facility] MCV 90 78 - 100 fL 06/15/2024 6:36 AM FAN INSTALLER [facility] MCH 31.7 26.5 - 33.0 pg 06/15/2024 6:36 AM FAN INSTALLER [facility] MCHC 35.3 31.5 - 36.5 g/dL 06/15/2024 6:36 AM FAN INSTALLER [facility] RDW 19.0(H) 10.0 - 15.0 % 06/15/2024 6:36 AM FAN INSTALLER [facility] Platelet Count 500(H) 150 - 450 10e3/uL 06/15/2024 6:36 AM FAN INSTALLER [facility] % Neutrophils 54 % 06/15/2024 6:36 AM FAN INSTALLER [facility] % Lymphocytes 31 % 06/15/2024 6:36 AM FAN INSTALLER [facility] % Monocytes 9 % 06/15/2024 6:36 AM FAN INSTALLER [facility] % Eosinophils 5 % 06/15/2024 6:36 AM FAN INSTALLER [facility] % Basophils 2 % 06/15/2024 6:36 AM FAN INSTALLER [facility] % Immature Granulocytes 1 % 06/15/2024 6:36 AM FAN INSTALLER [facility] NRBCs per 100 WBC 2(H) <1 /100 025 6:36 AM FAN INSTALLER [facility] Absolute Neutrophils 6.3 1.6 - 8.3 10e3/uL 06/15/2024 6:36 AM FAN INSTALLER [facility] Absolute Lymphocytes 3.6 0.8 - 5.3 10e3/uL 06/15/2024 6:36 AM FAN INSTALLER [facility] Absolute Monocytes 1.0 0.0 - 1.3 10e3/uL 06/15/2024 6:36 AM FAN INSTALLER [facility] Absolute Eosinophils 0.6 0.0 - 0.7 10e3/uL 06/15/2024 6:36 AM FAN INSTALLER [facility] Absolute Basophils 0.2 0.0 - 0.2 10e3/uL 06/15/2024 6:36 AM FAN INSTALLER [facility] Absolute Immature Granulocytes 0.1 <=0.4 10e3/uL 06/15/2024 6:36 AM FAN INSTALLER [facility] Absolute NRBCs 0.2 10e3/uL 06/15/2024 6:36 AM FAN INSTALLER [facility] Blood BLOOD SPECIMEN / Unknown IVAD (Port) / Unknown 06/15/2024 6:09 AM FAN INSTALLER 06/15/2024 6:18 AM FAN INSTALLER us Rl Elias MD LAB - BLOOD ORDER SYD Final Result [facility] [address] [facility], [address] [place] [phone] * (ABNORMAL) Basic metabolic panel (06/15/2024 6:09 AM FAN INSTALLER) Sodium 136 135 - 145 mmol/L 06/15/2024 7:13 AM FAN INSTALLER [facility] Potassium 4.4 3.4 - 5.3 mmol/L 06/15/2024 7:13 AM FAN INSTALLER [facility] Chloride 104 98 - 107 mmol/L 06/15/2024 7:13 AM FAN INSTALLER [facility] Carbon Dioxide (CO2) 21(L) 22 - 29 mmol/L 06/15/2024 7:13 AM FAN INSTALLER [facility] Anion Gap 11 7 - 15 mmol/L 06/15/2024 7:13 AM FAN INSTALLER [facility] Urea Nitrogen 10.1 6.0 - 20.0 mg/dL 06/15/2024 7:13 AM FAN INSTALLER [facility] Creatinine 0.65 0.51 - 0.95 mg/dL 06/15/2024 7:13 AM FAN INSTALLER [facility] GFR Estimate >90 >60 mL/min/1.7 3m2 06/15/2024 7:13 AM FAN INSTALLER [facility] Comment:eGFR calculated us2020 CKD-EPI equation. Calcium 8.9 8.8 - 10.4 mg/dL 06/15/2024 7:13 AM FAN INSTALLER [facility] Glucose 104(H) 70 - 99 mg/dL 06/15/2024 7:13 AM FAN INSTALLER [facility] Blood BLOOD SPECIMEN / Unknown IVAD (Port) / Unknown 06/15/2024 6:09 AM FAN INSTALLER 06/15/2024 6:16 AM FAN INSTALLER Rl Elias MD LAB - BLOOD ORDER SYD Final Result [facility] [address] [facility], [address] [place], [place] [phone] * XR Chest Port 1 View (06/14/2024 8:46 AM FAN INSTALLER) Anatomical Region Laterality Modality Chest Digital Radiogra phy Impressions 06/14/2024 8:59 AM FAN INSTALLER Impression: Further increase in ill-defined opacity projecting over the right lower lung concerning for pneumonia. MARIO ALBERTO BLACKWOOD MD Narrative 06/14/2024 8:59 AM FAN INSTALLER Exam: XR CHEST PORT 1 VIEW, 06/14/2024 8:46 AM Indication: evaluate in setting of worsening wheezing Comparison: 06/12/2024 Findings: Right IJ Port-A-Cath tip in the low superior vena cava. Left Port-A-Cath tip in the high superior vena cava. Heart and pulmonary vasculature within normal limits. Slight increase in the ill-defined opacity throughout the right lower lung. The pleural spaces are clear. Procedure Note Mario Alberto Blackwood MD - 06/14/2024 Exam: XR CHEST PORT 1 VIEW, 06/14/2024 8:46 AM Indication: evaluate in setting of worsening wheezing Comparison: 06/12/2024 Findings: Right IJ Port-A-Cath tip in the low superior vena cava. Left Port-A-Cath tip in the high superior vena cava. Heart and pulmonary vasculature within normal limits. Slight increase in the ill-defined opacity throughout the right lower lung. The pleural spaces are clear. Impression: Further increase in ill-defined opacity projecting over the right lower lung concerning for pneumonia. MARIO ALBERTO BLACKWOOD MD lR Elias MD IMG DIAGNOSTIC IM AGING ORDERABLES Final Result * (ABNORMAL) CBC with platelets (06/14/2024 7:08 AM FAN INSTALLER) WBC Count 13.4(H) 4.0 - 11.0 10e3/uL 06/14/2024 7:46 AM FAN INSTALLER [facility] RBC Count 2.30(L) 3.80 - 5.20 10e6/uL 06/14/2024 7:46 AM FAN INSTALLER [facility] Hemoglobin 6.9(LL) 11.7 - 15.7 g/dL 06/14/2024 7:46 AM FAN INSTALLER [facility] Hematocrit 21.6(L) 35.0 - 47.0 % 06/14/2024 7:46 AM FAN INSTALLER [facility] MCV 94 78 - 100 fL 06/14/2024 7:46 AM FAN INSTALLER [facility] MCH 30.0 26.5 - 33.0 pg 06/14/2024 7:46 AM FAN INSTALLER [facility] MCHC 31.9 31.5 - 36.5 g/dL 06/14/2024 7:46 AM FAN INSTALLER [facility] RDW 19.4(H) 10.0 - 15.0 % 06/14/2024 7:46 AM FAN INSTALLER [facility] Platelet Count 501(H) 150 - 450 10e3/uL 06/14/2024 7:46 AM FAN INSTALLER [facility] Blood BLOOD SPECIMEN / Unknown Venipuncture / Unknown 06/14/2024 7:08 AM FAN INSTALLER 06/14/2024 7:22 AM FAN INSTALLER Rl Elias MD LAB - BLOOD ORDER SYD Final Result [facility] [address] [facility], [address] [phone] * (ABNORMAL) Basic metabolic panel (06/14/2024 7:08 AM FAN INSTALLER) Pathologist [facility] Sodium 136 135 - 145 mmol/L 06/14/2024 7:57 AM FAN INSTALLER [facility] Potassium 4.2 3.4 - 5.3 mmol/L 06/14/2024 7:57 AM FAN INSTALLER [facility] Chloride 107 98 - 107 mmol/L 06/14/2024 7:57 AM FAN INSTALLER [facility] Carbon Dioxide (CO2) 20(L) 22 - 29 mmol/L 06/14/2024 7:57 AM FAN INSTALLER [facility] Anion Gap 9 7 - 15 mmol/L 06/14/2024 7:57 AM FAN INSTALLER [facility] Urea Nitrogen 6.5 6.0 - 20.0 mg/dL 06/14/2024 7:57 AM FAN INSTALLER [facility] Creatinine 0.71 0.51 - 0.95 mg/dL 06/14/2024 7:57 AM FAN INSTALLER [facility] GFR Estimate >90 >60 mL/min/1.7 3m2 06/14/2024 7:57 AM FAN INSTALLER [facility] Comment:eGFR calculated us2020 CKD-EPI equation. Calcium 8.9 8.8 - 10.4 mg/dL 06/14/2024 7:57 AM FAN INSTALLER [facility] Glucose 92 70 - 99 mg/dL 06/14/2024 7:57 AM FAN INSTALLER [facility] Blood BLOOD SPECIMEN / Unknown Venipuncture / Unknown 06/14/2024 7:08 AM FAN INSTALLER 06/14/2024 7:22 AM FAN INSTALLER Rl Elias MD LAB - BLOOD ORDER SYD Final Result [facility] [address] [facility], [address] [phone] * (ABNORMAL) CBC with platelets (06/13/2024 6:32 PM FAN INSTALLER) WBC Count 15.3(H) 4.0 - 11.0 10e3/uL 06/13/2024 7:10 PM FAN INSTALLER [facility] RBC Count 2.21(L) 3.80 - 5.20 10e6/uL 06/13/2024 7:10 PM FAN INSTALLER [facility] Hemoglobin 6.8(LL) 11.7 - 15.7 g/dL 06/13/2024 7:10 PM FAN INSTALLER [facility] Hematocrit 20.8(L) 35.0 - 47.0 % 06/13/2024 7:10 PM FAN INSTALLER [facility] MCV 94 78 - 100 fL 06/13/2024 7:10 PM FAN INSTALLER [facility] MCH 30.8 26.5 - 33.0 pg 06/13/2024 7:10 PM FAN INSTALLER [facility] MCHC 32.7 31.5 - 36.5 g/dL 06/13/2024 7:10 PM FAN INSTALLER [facility] RDW 19.6(H) 10.0 - 15.0 % 06/13/2024 7:10 PM FAN INSTALLER [facility] Platelet Count 495(H) 150 - 450 10e3/uL 06/13/2024 7:10 PM FAN INSTALLER [facility] Blood CENTRAL VENOUS CATHETER / Unknown VAD(CVC, PICC) / Unknown 06/13/2024 6:32 PM FAN INSTALLER 06/13/2024 6:52 PM FAN INSTALLER Rl Elias MD LAB - BLOOD ORDER SYD Final Result [facility] [address] [facility], [address] [place] [phone] * (ABNORMAL) RBC and Platelet Morphology (06/13/2024 6:00 AM FAN INSTALLER) RBC Morphology Confirmed RBC Indices 06/13/2024 3:45 PM FAN INSTALLER [facility] Platelet Assessment Automated Count Confirmed. Platelet morphology is normal. Automated Count Confirmed. Platelet morphology is normal. 06/13/2024 3:45 PM FAN INSTALLER [facility] Polychromasia Moderate(A) None Seen 06/13/2024 3:45 PM FAN INSTALLER [facility] Sickle Cells Moderate(A) None Seen 06/13/2024 3:45 PM FAN INSTALLER [facility] Target Cells Moderate(A) None Seen 06/13/2024 3:45 PM FAN INSTALLER [facility] Pathologist Review Comments (Blood) Sickle shaped red blood cells are present compatible with patient's history of sickle cell disease. Ziegler Raywick bodies are present compatible with hyposplenic blood picture. There is increased lymphocytes; however, the morphology of lymphocytes is polymorphous. Follow up CBC, diff for resolution of this findings is recommended. Danny Martinez MD on 06/13/2024 at 3:44 PM 06/13/2024 3:45 PM FAN INSTALLER [facility] Comment:This is an appended report. These results have been appended to a previously final verified report. Blood VENOUS LINE / Unknown IVAD (Port) / Unknown 06/13/2024 6:00 AM FAN INSTALLER 06/13/2024 6:16 AM FAN INSTALLER us Laquita Kelley MD LAB - BLOOD ORDERABLES Edited R esult - Final [facility] Lab 500 [facility], Room [address] [address], [facility] [place] [facility] Lab 500 [facility], Room [address] [address], [facility] * (ABNORMAL) CBC with platelets and differential (06/13/2024 6:00 AM FAN INSTALLER) WBC Count 17.0(H) 4.0 - 11.0 10e3/uL 06/13/2024 9:51 AM FAN INSTALLER [facility] LABORATORY RBC Count 2.11(L) 3.80 - 5.20 10e6/uL 06/13/2024 9:51 AM FAN INSTALLER [facility] LABORATORY Hemoglobin 6.4(LL) 11.7 - 15.7 g/dL 06/13/2024 9:51 AM FAN INSTALLER [facility] LABORATORY Hematocrit 20.3(L) 35.0 - 47.0 % 06/13/2024 9:51 AM FAN INSTALLER [facility] LABORATORY MCV 96 78 - 100 fL 06/13/2024 9:51 AM FAN INSTALLER [facility] LABORATORY MCH 30.3 26.5 - 33.0 pg 06/13/2024 9:51 AM FAN INSTALLER [facility] LABORATORY MCHC 31.5 31.5 - 36.5 g/dL 06/13/2024 9:51 AM FAN INSTALLER [facility] LABORATORY RDW 19.8(H) 10.0 - 15.0 % 06/13/2024 9:51 AM FAN INSTALLER [facility] LABORATORY Platelet Count 458(H) 150 - 450 10e3/uL 06/13/2024 9:51 AM FAN INSTALLER [facility] LABORATORY % Neutrophils 40 % 06/13/2024 9:51 AM FAN INSTALLER [facility] LAB[facility]ATORY % Lymphocytes 42 % 06/13/2024 9:51 AM FAN INSTALLER [facility] LABORATORY % Monocytes 13 % 06/13/2024 9:51 AM FAN INSTALLER [facility] LABORATORY % Eosinophils 3 % 06/13/2024 9:51 AM FAN INSTALLER [facility] LABORATORY % Basophils 1 % 06/13/2024 9:51 AM FAN INSTALLER [facility] LABORATORY % Immature Granulocytes 1 % 06/13/2024 9:51 AM FAN INSTALLER [facility] LABORATORY NRBCs per 100 WBC 0 <1 /100 025 9:51 AM FAN INSTALLER [facility] LABORATORY Absolute Neutrophils 6.7 1.6 - 8.3 10e3/uL 06/13/2024 9:51 AM FAN INSTALLER [facility] LABORATORY Absolute Lymphocytes 7.2(H) 0.8 - 5.3 10e3/uL 06/13/2024 9:51 AM FAN INSTALLER [facility] LABORATORY Absolute Monocytes 2.2(H) 0.0 - 1.3 10e3/uL 06/13/2024 9:51 AM FAN INSTALLER [facility] LABORATORY Absolute Eosinophils 0.5 0.0 - 0.7 10e3/uL 06/13/2024 9:51 AM FAN INSTALLER [facility] LABORATORY Absolute Basophils 0.2 0.0 - 0.2 10e3/uL 06/13/2024 9:51 AM FAN INSTALLER [facility] LABORATORY Absolute Immature Granulocytes 0.1 <=0.4 10e3/uL 06/13/2024 9:51 AM FAN INSTALLER [facility] LABORATORY Absolute NRBCs 0.1 10e3/uL 06/13/2024 9:51 AM FAN INSTALLER [facility] LABORATORY Blood VENOUS LINE / Unknown IVAD (Port) / Unknown 06/13/2024 6:00 AM FAN INSTALLER 06/13/2024 6:16 AM FAN INSTALLER Narrative [facility] - 06/13/2024 9:51 AM FAN INSTALLER Sent for review by Pathologist. See Pathologist comments after review. Tech Comments Patient Diagnosis: Sickle Cell crisis Reason for Sending: absolute lymphocyte > 5.4 Laquita Kelley MD LAB - BLOOD ORDERABLES Final Re sult [facility] Specialty Lab 500 [facility], Room [address] [address] [place] [facility] Lab 500 [facility], [address] [id number] * (ABNORMAL) Basic metabolic panel (06/13/2024 5:59 AM FAN INSTALLER) Sodium 135 135 - 145 mmol/L 06/13/2024 6:45 AM FAN INSTALLER [facility]U LABORATORY Potassium 4.3 3.4 - 5.3 mmol/L 06/13/2024 6:45 AM FAN INSTALLER [facility] LABORATORY Chloride 105 98 - 107 mmol/L 06/13/2024 6:45 AM FAN INSTALLER [facility] LABORATORY Carbon Dioxide (CO2) 21(L) 22 - 29 mmol/L 06/13/2024 6:45 AM FAN INSTALLER [facility]U LABORATORY Anion Gap 9 7 - 15 mmol/L 06/13/2024 6:45 AM FAN INSTALLER [facility] LABORATORY Urea Nitrogen 4.9(L) 6.0 - 20.0 mg/dL 06/13/2024 6:45 AM FAN INSTALLER [facility] LABORATORY Creatinine 0.70 0.51 - 0.95 mg/dL 06/13/2024 6:45 AM FAN INSTALLER [facility] LABORATORY GFR Estimate >90 >60 mL/min/1.7 3m2 06/13/2024 6:45 AM FAN INSTALLER UU LABORATORY Comment:eGFR calculated usin 2020 CKD-EPI equation. Calcium 8.7(L) 8.8 - 10.4 mg/dL 06/13/2024 6:45 AM FAN INSTALLER [facility]U LABORATORY Glucose 100(H) 70 - 99 mg/dL 06/13/2024 6:45 AM FAN INSTALLER [facility] LABORATORY Blood VENOUS LINE / Unknown IVAD (Port) / Unknown 06/13/2024 5:59 AM FAN INSTALLER 06/13/2024 6:16 AM FAN INSTALLER Laquita Kelley MD LAB - BLOOD ORDERABLES Final Re sult [facility] LAB[facility]ATORY [facility] [place] [facility] [address] [facility] [address], [address] [place] [address] * Respiratory Panel PCR (06/12/2024 9:34 PM FAN INSTALLER) Adenovirus Not Detected Not Detected 06/12/2024 11:53 PM FAN INSTALLER U[facility] IDD LABORATORY Coronavirus Not Detected Not Detected 06/12/2024 11:53 PM FAN INSTALLER [facility] Comment:This test detects Co ronavirus 229E, HKU1, NL63 and OC43 but does not distinguish between them. It does not detect MERS ( Respiratory Syndrome), SARS (Severe Acute Respiratory Syndrome) or 2019-nCoV (Novel 2018) Coronavirus. Human Metapneumovirus Not Detected Not Detected 06/12/2024 11:53 PM FAN INSTALLER [facility] LAB[facility]ATORY Human Rhin/Enterovirus Not Detected Not Detected 06/12/2024 11:53 PM FAN INSTALLER [facility]ORY Influenza A Not Detected Not Detected 06/12/2024 11:53 PM FAN INSTALLER [facility] Influenza A, H1 Not Detected Not Detected 06/12/2024 11:53 PM FAN INSTALLER [facility] Influenza A 2009 H1N1 Not Detected Not Detected 06/12/2024 11:53 PM FAN INSTALLER [facility]ORY Influenza A, H3 Not Detected Not Detected 06/12/2024 11:53 PM FAN INSTALLER [facility] Influenza B Not Detected Not Detected 06/12/2024 11:53 PM FAN INSTALLER [facility] Parainfluenza Virus 1 Not Detected Not Detected 06/12/2024 11:53 PM FAN INSTALLER [facility] Parainfluenza Virus 2 Not Detected Not Detected 06/12/2024 11:53 PM FAN INSTALLER [facility] Parainfluenza Virus 3 Not Detected Not Detected 06/12/2024 11:53 PM FAN INSTALLER [facility] Parainfluenza Virus 4 Not Detected Not Detected 06/12/2024 11:53 PM FAN INSTALLER [facility] Respiratory Syncytial Virus A Not Detected Not Detected 06/12/2024 11:53 PM FAN INSTALLER [facility] Respiratory Syncytial Virus B Not Detected Not Detected 06/12/2024 11:53 PM FAN INSTALLER [facility] Chlamydia Pneumoniae Not Detected Not Detected 06/12/2024 11:53 PM FAN INSTALLER [facility] Mycoplasma Pneumoniae Not Detected Not Detected 06/12/2024 11:53 PM FAN INSTALLER [facility] LAB[facility] Swab NASOPHARYNGEAL STRUCTURE / Unknown Non-blood Collection / Unknown 06/12/2024 9:34 PM FAN INSTALLER 06/12/2024 9:47 PM FAN INSTALLER Narrative [facility] IDD LABORATORY - 06/12/2024 11:53 PM FAN INSTALLER The ePlex Respiratory Panel is a qualitative nucleic acid, multiplex, in vitro diagnostic test for the simultaneous detection and identification of multiple respiratory viral and bacterial nucleic acids in nasopharyngeal swabs collected in viral transport media from individual exhibiting signs and symptoms of respiratory infection. The assay has received FDA approval for the testing of nasopharyngeal (SENIOR EXECUTIVE ASSISTANT) swabs only. This test is used for clinical purposes and should not be regarded as investigational or for research. This laboratory is certified under the Clinical Laboratory Improvement Amendments of 1988 (CLIA-88) as qualified to perform high complexity clinical laboratory testing. us Abdelrahman Goddard MD LAB - MICRO GENERAL ORDERABLES Final Result [facility] IDD LABORATORY [facility] Inf. Diseases Diag. Lab 500 [facility], [address] [place] [address] * Blood Culture Peripheral Blood (06/12/2024 8:46 PM FAN INSTALLER) Culture No Growth 06/17/2024 9:31 PM FAN INSTALLER [facility] LABORATORY Blood BLOOD SPECIMEN / Unknown Venipuncture / Unknown 06/12/2024 8:46 PM FAN INSTALLER 06/12/2024 8:53 PM FAN INSTALLER Narrative [facility] IDD LABORATORY - 06/17/2024 9:31 PM FAN INSTALLER Only an Aerobic Blood Culture Bottle was collected, interpret results with caution. us Abdelrahman Goddard MD LAB - MICRO GENERAL ORDERABLES Final Result [facility] IDD LABORATORY [facility] Inf. Diseases Diag. Lab 500 [facility], Room [place] [id number] * Blood Culture Peripheral Blood (06/12/2024 8:46 PM FAN INSTALLER) Culture No Growth 06/17/2024 9:31 PM FAN INSTALLER [facility]ATORY Blood BLOOD SPECIMEN / Unknown Venipuncture / Unknown 06/12/2024 8:46 PM FAN INSTALLER 06/12/2024 8:53 PM FAN INSTALLER us Abdelrahman Goddard MD LAB - MICRO GENERAL ORDERABLES Final Result [facility] IDD LABORATORY [facility] Inf. Diseases Diag. Lab 500 [facility], Room [address] * XR Chest 2 Views (06/12/2024 7:38 PM FAN INSTALLER) Anatomical Region Laterality Modality Chest Computed Radiogr aphy 06/12/2024 7:38 PM FAN INSTALLER Impressions 06/12/2024 7:42 PM FAN INSTALLER IMPRESSION: A few faint peripheral reticulonodular opacities in the mid and lower lungs again seen. Lungs otherwise clear. No pleural effusion. No pneumothorax. Borderline cardiac enlargement unchanged. Port anterior right chest wall with right IJ central venous catheter tip low SVC. Port anterior left chest wall with left IJ central venous catheter tip low SVC. Narrative 06/12/2024 7:42 PM FAN INSTALLER EXAM: XR CHEST 2 VIEWS LOCATION: [facility] DATE: 06/12/2024 INDICATION: CP COMPARISON: 06/03/2024, 05/27/2024 Procedure Note Surendra Hou MD - 06/12/2024 EXAM: XR CHEST 2 VIEWS LOCATION: [facility] DATE: 06/12/2024 INDICATION: CP COMPARISON: 06/03/2024, 05/27/2024 IMPRESSION: A few faint peripheral reticulonodular opacities in the midand lower lungs again seen. Lungs otherwise clear. No pleural effusion. Nopneumothorax. Borderline cardiac enlargement unchanged. Port anteriorright chest wall with right IJ central venous catheter tip low SVC. Port anterior left chest wall withleft IJ central venous catheter tip low SVC. Abdelrahman Goddard MD IMG DIAGNOSTIC IMAGING ORDERAB LES Final Result * Adult Type and Screen (06/12/2024 7:17 PM FAN INSTALLER) Pathologist [facility] ABO/RH(D) A POS 06/13/2024 9:17 AM FAN INSTALLER UU BLOOD BANK Antibody Screen Negative Negative 06/13/2024 9:17 AM FAN INSTALLER UU BLOOD BANK Comment:Current antibody scr een is negative. Patient has a history of antibody(ies). A delay in compatible red blood cells may occur. SPECIMEN EXPIRATION DATE [id number] 06/13/2024 9:17 AM FAN INSTALLER UU BLOOD BANK Blood BLOOD SPECIMEN / Unknown Venipuncture / Unknown 06/12/2024 7:17 PM FAN INSTALLER 06/12/2024 7:32 PM FAN INSTALLER Carmen Aviles PA-C LAB - BLOOD BANK TEST ORDER Final Result U BLOOD BANK [address] [place] [address] * (ABNORMAL) RBC and Platelet Morphology (06/12/2024 7:17 PM FAN INSTALLER) Pathologist [facility] RBC Morphology Confirmed RBC Indices 06/12/2024 8:57 PM FAN INSTALLER UU LABORATORY Platelet Assessment Automated Count Confirmed. Platelet morphology is normal. Automated Count Confirmed. Platelet morphology is normal. 06/12/2024 8:57 PM FAN INSTALLER UU LABORATORY Polychromasia Slight(A) None Seen 06/12/2024 8:57 PM FAN INSTALLER [facility] LABORATORY Sickle Cells Moderate(A) None Seen 06/12/2024 8:57 PM FAN INSTALLER [facility] LABORATORY Target Cells Moderate(A) None Seen 06/12/2024 8:57 PM FAN INSTALLER [facility] LABORATORY Blood BLOOD SPECIMEN / Unknown Venipuncture / Unknown 06/12/2024 7:17 PM FAN INSTALLER 06/12/2024 7:32 PM FAN INSTALLER us Abdelrahman oGddard MD LAB - BLOOD ORDERABLES Final R esult [facility] LAB[facility]ATORY [facility] [place] [facility] Lab 500 [facility], [address] [phone] * (ABNORMAL) CBC with platelets and differential (06/12/2024 7:17 PM FAN INSTALLER) WBC Count 12.5(H) 4.0 - 11.0 10e3/uL 06/12/2024 7:54 PM FAN INSTALLER UU LABORATORY RBC Count 2.44(L) 3.80 - 5.20 10e6/uL 06/12/2024 7:54 PM FAN INSTALLER [facility]U LABORATORY Hemoglobin 7.5(L) 11.7 - 15.7 g/dL 06/12/2024 7:54 PM FAN INSTALLER [facility] LABORATORY Hematocrit 22.2(L) 35.0 - 47.0 % 06/12/2024 7:54 PM FAN INSTALLER UU LABORATORY MCV 91 78 - 100 fL 06/12/2024 7:54 PM FAN INSTALLER [facility] LABORATORY MCH 30.7 26.5 - 33.0 pg 06/12/2024 7:54 PM FAN INSTALLER [facility] LABORATORY MCHC 33.8 31.5 - 36.5 g/dL 06/12/2024 7:54 PM FAN INSTALLER [facility] LABORATORY RDW 19.5(H) 10.0 - 15.0 % 06/12/2024 7:54 PM FAN INSTALLER [facility] LABORATORY Platelet Count 542(H) 150 - 450 10e3/uL 06/12/2024 7:54 PM FAN INSTALLER [facility] LAB[facility]ATORY % Neutrophils 57 % 06/12/2024 7:54 PM FAN INSTALLER [facility] LAB[facility]ATORY % Lymphocytes 24 % 06/12/2024 7:54 PM FAN INSTALLER [facility] LAB[facility]ATORY % Monocytes 16 % 06/12/2024 7:54 PM FAN INSTALLER [facility] LAB[facility]ATORY % Eosinophils 1 % 06/12/2024 7:54 PM FAN INSTALLER [facility] LABORATORY % Basophils 1 % 06/12/2024 7:54 PM FAN INSTALLER [facility] LAB[facility]ATORY % Immature Granulocytes 0 % 06/12/2024 7:54 PM FAN INSTALLER [facility] LABORATORY NRBCs per 100 WBC 1(H) <1 /100 025 7:54 PM FAN INSTALLER [facility]U LABORATORY Absolute Neutrophils 7.1 1.6 - 8.3 10e3/uL 06/12/2024 7:54 PM FAN INSTALLER [facility]U LABORATORY Absolute Lymphocytes 3.0 0.8 - 5.3 10e3/uL 06/12/2024 7:54 PM FAN INSTALLER [facility] LABORATORY Absolute Monocytes 2.0(H) 0.0 - 1.3 10e3/uL 06/12/2024 7:54 PM FAN INSTALLER [facility]U LABORATORY Absolute Eosinophils 0.2 0.0 - 0.7 10e3/uL 06/12/2024 7:54 PM FAN INSTALLER [facility] LABORATORY Absolute Basophils 0.2 0.0 - 0.2 10e3/uL 06/12/2024 7:54 PM FAN INSTALLER [facility] LABORATORY Absolute Immature Granulocytes 0.1 <=0.4 10e3/uL 06/12/2024 7:54 PM FAN INSTALLER [facility] LABORATORY Absolute NRBCs 0.1 10e3/uL 06/12/2024 7:54 PM FAN INSTALLER [facility]U LABORATORY Blood BLOOD SPECIMEN / Unknown Venipuncture / Unknown 06/12/2024 7:17 PM FAN INSTALLER 06/12/2024 7:32 PM FAN INSTALLER us Abdelrahman Goddard MD LAB - BLOOD ORDERABLES Final R esult [facility] LAB[facility]ATORY [facility] [place] [facility] Lab 500 [facility], [address] [phone] * (ABNORMAL) Blood gas venous (06/12/2024 7:17 PM FAN INSTALLER) pH Venous 7.38 7.32 - 7.43 06/12/2024 7:40 PM FAN INSTALLER UU LABORATORY pCO2 Venous 42 40 - 50 mm Hg 06/12/2024 7:40 PM FAN INSTALLER [facility]U LABORATORY pO2 Venous 35 25 - 47 mm Hg 06/12/2024 7:40 PM FAN INSTALLER [facility]U LABORATORY Bicarbonate Venous 24 21 - 28 mmol/L 06/12/2024 7:40 PM FAN INSTALLER UU LABORATORY Base Excess/Deficit Venous -0.9 -3.0 - 3.0 mmol/L 06/12/2024 7:40 PM FAN INSTALLER UU LABORATORY FIO2 21 JARET 06/12/2024 7:40 PM FAN INSTALLER UU LABORATORY Oxyhemoglobin Venous 61(L) 70 - 75 % 06/12/2024 7:40 PM FAN INSTALLER [facility] LABORATORY O2 Sat, Venous 63.9(L) 70.0 - 75.0 % 06/12/2024 7:40 PM FAN INSTALLER [facility] LABORATORY Blood, venous VENOUS LINE / Unknown Venipuncture / Unknown 06/12/2024 7:17 PM FAN INSTALLER 06/12/2024 7:30 PM FAN INSTALLER Narrative UU LABORATORY - 06/12/2024 7:40 PM FAN INSTALLER In healthy individuals, oxyhemoglobin (O2Hb) and oxygen saturation (SO2) are approximately equal. In the presence of dyshemoglobins, oxyhemoglobin can be considerably lower than oxygen saturation. us Abdelrahman Goddard MD LAB - BLOOD ORDERABLES Final R esult UU LABORATORY [facility] Core Lab 500 [facility], [address] [place] [address] * Troponin T, High Sensitivity (06/12/2024 7:17 PM FAN INSTALLER) [facility] Troponin T, High Sensitivity <6 <=14 ng/L 06/12/2024 8:03 PM FAN INSTALLER UU LABORATORY Comment: Either a High Sensitivity Troponin T baseline (0 hours) value = 100 ng/L, or an increase in High Sensitivity Troponin T = 7 ng/L at 2 hours compared to 0 hours (2-0 hours), suggests myocardial injury, and urgent clinical attention is required. If the 2-0 hours increase is <7 ng/L, a High Sensitivity Troponin T result above gender-specific reference ranges warrants further evaluation. Recommendations for further evaluation include correlation with clinical decision-making tool (e.g., HEART), a 3rd High Sensitivity Troponin T test 2 hours after the 2nd (a 20% change from baseline would represent concern), admission for observation, close PCC/cardiology follow-up, or urgent outpatient provocative testing. Blood BLOOD SPECIMEN / Unknown Venipuncture / Unknown 06/12/2024 7:17 PM FAN INSTALLER 06/12/2024 7:32 PM FAN INSTALLER us Abdelrahman Goddard MD LAB - BLOOD ORDERABLES Final R esult [facility] LAB[facility]ATORY [facility] [place] [facility] Lab 500 [facility], [address] [address], [facility] * (ABNORMAL) Basic metabolic panel (06/12/2024 7:17 PM FAN INSTALLER) Pathologist [facility] Sodium 139 135 - 145 mmol/L 06/12/2024 8:03 PM FAN INSTALLER UU LABORATORY Potassium 4.3 3.4 - 5.3 mmol/L 06/12/2024 8:03 PM FAN INSTALLER UU LABORATORY Chloride 109(H) 98 - 107 mmol/L 06/12/2024 8:03 PM FAN INSTALLER [facility]U LABORATORY Carbon Dioxide (CO2) 21(L) 22 - 29 mmol/L 06/12/2024 8:03 PM FAN INSTALLER [facility]U LABORATORY Anion Gap 9 7 - 15 mmol/L 06/12/2024 8:03 PM FAN INSTALLER [facility]U LABORATORY Urea Nitrogen 5.9(L) 6.0 - 20.0 mg/dL 06/12/2024 8:03 PM FAN INSTALLER [facility]U LABORATORY Creatinine 0.61 0.51 - 0.95 mg/dL 06/12/2024 8:03 PM FAN INSTALLER [facility]U LABORATORY GFR Estimate >90 >60 mL/min/1.7 3m2 06/12/2024 8:03 PM FAN INSTALLER [facility]U LABORATORY Comment:eGFR calculated 2020 CKD-EPI equation. Calcium 9.4 8.8 - 10.4 mg/dL 06/12/2024 8:03 PM FAN INSTALLER [facility]U LABORATORY Glucose 97 70 - 99 mg/dL 06/12/2024 8:03 PM FAN INSTALLER [facility]U LABORATORY Blood BLOOD SPECIMEN / Unknown Venipuncture / Unknown 06/12/2024 7:17 PM FAN INSTALLER 06/12/2024 7:32 PM FAN INSTALLER us Abdelrahman Goddard MD LAB - BLOOD ORDERABLES Final R esult [facility] LAB[facility] [place] [facility] Lab 500 [facility], [address] * (ABNORMAL) INR (06/12/2024 7:17 PM FAN INSTALLER) INR 1.37(H) 0.85 - 1.15 06/12/2024 7:54 PM FAN INSTALLER U LABORATORY Blood BLOOD SPECIMEN / Unknown Venipuncture / Unknown 06/12/2024 7:17 PM FAN INSTALLER 06/12/2024 7:32 PM FAN INSTALLER Abdelrahman Goddard MD LAB - BLOOD ORDERABLES Final R esult LABORATORY [facility] [place] [facility] Lab 500 [facility], [address] * EKG 12-lead, tracing only (06/12/2024 6:37 PM FAN INSTALLER) Systolic Blood Pressure mmHg RADIOLOGY RESULTS Diastolic Blood Pressure mmHg RADIOLOGY RESULTS Ventricular Rate 94 BPM RAD IOLOGY RESULTS Atrial Rate 94 BPM RADIOLOG Y RESULTS TX Interval 146 ms RADIOLOG Y RESULTS QRS Duration 84 ms RADIOLO GY RESULTS QT 346 ms RADIOLOGY RESULTS QTc 432 ms RADIOLOGY RESULTS P [place] 31 degrees RADIOLOGY RESULTS R AXIS 85 degrees RADIOLOGY RESULTS T [place] 36 degrees RADIOLOGY RESULTS Interpretation ECG Sinus rhythm Normal ECG Unconfirmed report - interpretation of this ECG is computer generated - see medical record for final interpretation Confirmed by - EMERGENCY ROOM, PHYSICIAN ([id number]), field map editor CLAUDIO ASTORGA ([id number]) on 06/13/2024 7:17:59 AM RADIOLOGY RESULTS 06/12/2024 6:37 PM FAN INSTALLER 06/13/2024 7:17 AM FAN INSTALLER Alex Morton MD ECG ORDERABLES Edited Resul t - Final RADIOLOGY RESULTS documented in this encounter Visit Diagnoses Diagnosis 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 Acute chest pain Chest pain, unspecified 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 Pneumonia of right lower lobe due to infectious organism Acute chest pain Chest pain, unspecified 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 documented in this encounter Admitting Diagnoses Diagnosis Acute chest pain Chest pain, unspecified 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 Prime by spraying into the air 4 times prior to first use and if not used within 2 weeks. $Given 06/15/2024 8:05 AM FAN INSTALLER 2 puffs $Given 06/14/2024 7:59 PM FAN INSTALLER 2 puffs $Given 06/14/2024 4:39 PM FAN INSTALLER 2 puffs albuterol (PROVENTIL HFA/VENTOLIN HFA) inhaler 2 puff, Inhalation, 4 TIMES DAILY PRN, shortness of breath, Starting on Wed06/14/24 at 1138, Check the dose counter on the inhaler to ensure there are doses remaining before administering. Prime by spraying into the air 4 times prior to first use and if not used within 2 weeks. azithromycin (ZITHROMAX) 500 mg in sodium chloride 0.9 % 250 mL intermittent infusion STAT, 500 mg, Intravenous, ONCE, On Wed06/12/24 at 2030, For 1 dose, Indications: SepsisIndications:Sepsis $New Bag 06/12/2024 9:31 PM FAN INSTALLER 500 mg 250 mL /hr azithromycin (ZITHROMAX) 500 mg in sodium chloride 0.9 % 250 mL intermittent infusion Routine, 500 mg, Intravenous, EVERY 24 HOURS, First dose on Wed06/13/24 at 2100, Indications: Acute chest syndromeIndications:Acute chest syndrome $New Bag 06/13/2024 10:04 PM FAN INSTALLER 500 mg azithromycin (ZITHROMAX) tablet 500 mg Routine, 500 mg, Oral, DAILY, First dose on Wed06/14/24 at 1200, Indications: Community Acquired PneumoniaIndications:Community Acquired Pneumonia $Given 06/15/2024 8:05 AM FAN INSTALLER 500 mg $Given 06/14/2024 12:38 PM FAN INSTALLER 500 mg cefTRIAXone (ROCEPHIN) 1 g vial to attach to NS 100 mL bag for ADULTS or NS 50 mL bag for PEDS STAT, 1 g, Intravenous, ONCE, On Wed06/12/24 at 2005, For 1 dose, Lactated Ringer's solution is not compatible with ceftriaxone for injection, Indications: SepsisIndications:Sepsis $New Bag 06/12/2024 8:39 PM FAN INSTALLER 1 g cefTRIAXone (ROCEPHIN) 2 g vial to attach to NS 100 ml bag for ADULTS or NS 50 ml bag for PEDS Routine, 2 g, Intravenous, EVERY 24 HOURS, First dose on Wed06/13/24 at 2000, Lactated Ringer's solution is not compatible with ceftriaxone for injection, Indications: Acute chest syndromeIndications:Acute chest syndrome $New Bag 06/14/2024 8:00 PM FAN INSTALLER 2 g $New Bag 06/13/2024 8:16 PM FAN INSTALLER 2 g diclofenac (VOLTAREN) 1 % topical gel 2 g 2 g, Topical, 4 TIMES DAILY PRN, inflammatory pain, Starting on Wed06/14/24 at 0912, Apply to area of pain. Use supplied dosing card to measure dose. $Given 06/15/2024 8:10 AM FAN INSTALLER 2 g $Given 06/14/2024 12:38 PM FAN INSTALLER 2 g diphenhydrAMINE (BENADRYL) capsule 25 mg 25 mg, Oral, EVERY 6 HOURS PRN, itching, Starting on Wed06/12/24 at 2139 $Given 06/14/2024 12:38 PM FAN INSTALLER 25 mg $Given 06/13/2024 10:54 PM FAN INSTALLER 25 mg $Given 06/13/2024 12:12 PM FAN INSTALLER 25 mg diphenhydrAMINE (BENADRYL) injection 25 mg 25 mg, Intravenous, EVERY 6 HOURS PRN, itching, Starting on Wed06/12/24 at 2139 $Given 06/13/2024 5:39 AM FAN INSTALLER 25 mg $Given 06/12/2024 10:41 PM FAN INSTALLER 25 mg enoxaparin ANTICOAGULANT (LOVENOX) injection 40 mg 40 mg, Subcutaneous, EVERY 24 HOURS, First dose on Wed06/13/24 at 0800, Contact provider if platelet count drops by 50% or more after enoxaparin initiation OR if platelet count falls below 50 x 10e3/uL $Given 06/15/2024 7:59 AM FAN INSTALLER 40 mg $Given 06/14/2024 8:29 AM FAN INSTALLER 40 mg $Given 06/13/2024 7:49 AM FAN INST[employer]ER 40 mg FLUoxetine (PROzac) capsule 10 mg 10 mg, Oral, DAILY, First dose on Wed06/13/24 at 0800 $Given 06/14/2024 2:37 PM [employer] INST[employer]ER 10 mg $Given 06/13/2024 7:50 AM [employer] INST[employer]ER 10 mg folic acid (FOLVITE) tablet 1 mg 1 mg, Oral, DAILY, First dose on Wed06/13/24 at 0800 $Given 06/15/2024 8:05 AM [employer] INST[employer]ER 1 mg $Given 06/14/2024 8:29 AM F[employer] INST[employer]ER 1 mg $Given 06/13/2024 7:49 AM F[employer] INST[employer]ER 1 mg heparin lock flush 10 unit/mL injection 5-10 mL 5-10 mL, Intracatheter, EVERY 1 HOUR PRN, post meds or blood draw, other, to lock each port in dual implanted port, Starting on Wed06/15/24 at 0906, Flush each port lumen with the sodium chloride 0.9% flush followed by the heparin flush. MAX dose: 5 mL of heparin for each lumen heparin lock flush 10 unit/mL injection 5-10 mL 5-10 mL, Intracatheter, EVERY 24 HOURS, First dose on Wed06/15/24 at 0910, To lock each dormant port in dual implanted port. MAX: 5 mL of heparin for each lumen Check PRN heparin flush order to see when the last dose of the PRN heparin was given before administering this heparin dose. Flush with sodium chloride 0.9% followed by the heparin flush. heparin lock flush 100 unit/mL injection 5-10 mL 5-10 mL, Intracatheter, EVERY 28 DAYS, First dose on Wed06/15/24 at 0910, To de-access each port in dual implanted port. Flush with 10 mL NS sodium chloride 0.9% flush followed by 5 mL heparin (100 units/mL) at discharge and at least every 28 days. MAX: 5 mL per each port lumen hydromorphone (DILAUDID) injection 2 mg 2 mg, Intravenous, ONCE, On Wed06/12/24 at 1850, For 1 dose $Given 06/12/2024 7:24 PM FAN INSTALLER 2 mg hydromorphone (DILAUDID) injection 2 mg 2 mg, Intravenous, ONCE, On Wed06/12/24 at 2010, For 1 dose $Given 06/12/2024 8:14 PM FAN INSTALLER 2 mg hydromorphone (DILAUDID) injection 2 mg 2 mg, Intravenous, EVERY 3 HOURS PRN, moderate pain, IF patient cannot take oral opioid OR IF pain not managed with non-pharmacological, non-opioid, or oral opioid interventions if ordered, Starting on Wed06/12/24 at 2237, May use concomitant with non-opioid analgesics. $Given 06/12/2024 11:31 PM FAN INSTALLER 2 mg hydromorphone (DILAUDID) injection 2 mg 2 mg, Intravenous, ONCE, On Wed06/12/24 at 2135, For 1 dose $Given 06/12/2024 9:46 PM FAN INSTALLER 2 mg hydromorphone (DILAUDID) injection 2 mg 2 mg, Intravenous, EVERY 2 HOURS PRN, moderate pain, IF patient cannot take oral opioid OR IF pain not managed with non-pharmacological, non-opioid, or oral opioid interventions if ordered, Starting on Wed06/13/24 at 0132, May use concomitant with non-opioid analgesics. $Given 06/14/2024 12:38 PM FAN INSTALLER 2 mg $Given 06/14/2024 10:31 AM FAN INSTALLER 2 mg $Given 06/14/2024 8:29 AM FAN INSTALLER 2 mg hydromorphone (DILAUDID) injection 2 mg 2 mg, Intravenous, EVERY 2 HOURS, First dose (after last modification) on Wed06/14/24 at 1415, May use concomitant with non-opioid analgesics. $Given 06/15/2024 7:58 AM FAN INSTALLER 2 mg $Given 06/15/2024 6:01 AM FAN INSTALLER 2 mg $Given 06/15/2024 4:11 AM FAN INSTALLER 2 mg hydroxyurea (HYDREA) capsule 1,000 mg 1,000 mg, Oral, 2 TIMES DAILY, First dose on Wed06/12/24 at 2330, Indications: sickle cell anemia, Do not crush May require hepatic and/or renal dose or frequency adjustments. See reference link for guidelines.Indications:sickle cell anemia $Given 06/15/2024 8:06 AM FAN INSTALLER 1,000 mg $Given 06/14/2024 8:00 PM FAN INSTALLER 1,000 mg $Given 06/14/2024 8:30 AM FAN INSTALLER 1,000 mg lactated ringers infusion at 75 mL/hr, Intravenous, CONTINUOUS, Starting on Wed06/12/24 at 2240, Until Wed06/13/24 at 0839 Rate/Dose Verify 06/13/2024 7:02 AM FAN INSTALLER 75 mL/hr Rate/Dose Verify 06/13/2024 4:52 AM FAN INSTALLER 75 mL/h r Rate/Dose Verify 06/13/2024 1:35 AM FAN INSTALLER 75 mL/h r Lidocaine (LIDOCARE) 4 % Patch 1 patch 1 patch, Transdermal, Administer over 12 Hours, EVERY 24 HOURS 0800, First dose on [place] 06/15/24 at 0800, Apply patch(s) to area of pain. To prevent lidocaine toxicity, patient should be patch free for 12 hrs daily. Patches may be cut to smaller size prior to removing release liner. Reminder: Remove previous patch before applying new patch. NEVER APPLY HEAT OVER PATCH which increases absorption and may lead to local anesthetic toxicity. Do not apply over area where liposomal bupivacaine was injected for 96 hours post injection. Avoid heat exposure to application site or surrounding areas. This includes heat from external sources, such as heating pads, electric blankets, or other equipment. melatonin tablet 5 mg 5 mg, Oral, AT BEDTIME PRN, sleep, Starting on Wed06/12/24 at 2138 $Given 06/13/2024 1:28 AM FAN INSTALLER 5 mg menthol (ICY HOT) 5 % patch 1 patch 1 patch, Topical, Administer over 8 Hours, EVERY 8 HOURS PRN, muscle soreness, Starting on Wed06/14/24 at 0913, Apply to area of pain Reminder: Remove previous patch before applying new patch. Avoid heat exposure to application site or surrounding areas. This includes heat from external sources, such as heating pads, electric blankets, or other equipment. ondansetron (ZOFRAN ODT) ODT tab 4 mg 4 mg, Oral, EVERY 6 HOURS PRN, nausea/vomiting - 1st line, Starting on Wed06/12/24 at 2237, This is Step 1 of nausea and vomiting management. If nausea not resolved in 15 minutes, go to Step 2 prochlorperazine (COMPAZINE). With dry hands, peel back foil backing and gently remove tablet. Do not push oral disintegrating tablet through foil backing. Administer immediately on tongue and oral disintegrating tablet dissolves in seconds, then swallow with saliva. Liquid not required. $Given 06/14/2024 9:20 AM FAN INSTALLER 4 mg ondansetron (ZOFRAN) injection 4 mg 4 mg, Intravenous, ONCE, Administer over 2-5 Minutes, On Wed06/12/24 at 1850, For 1 dose $Given 06/12/2024 7:24 PM FAN INSTALLER 4 mg ondansetron (ZOFRAN) injection 4 mg 4 mg, Intravenous, EVERY 6 HOURS PRN, nausea/vomiting - 1st line, Administer over 2-5 Minutes, Starting on Wed06/12/24 at 2237, Give IF patient unable to tolerate oral medication. This is Step 1 of nausea and vomiting management. If nausea not resolved in 15 minutes, go to Step 2 prochlorperazine (COMPAZINE). $Given 06/15/2024 4:19 AM FAN INSTALLER 4 mg senna-docusate (SENOKOT-S/PERICOLACE) 8.6-50 MG per tablet 1 tablet 1 tablet, Oral, 2 TIMES DAILY PRN, constipation, Starting on Wed06/12/24 at 2237, If no bowel movement in 24 hours, increase to 2 tablets by mouth. IF more than 1 constipation PRN medication is ordered, administer step-barriga as indicated, moving to the next step ONLY if prior step ineffective. Step 1: senna-docusate (SENOKOT-S; PERICOLACE) OR bisacodyl (DULCOLAX) EC tablet Step 2: polyethylene glycol (MIRALAX/GLYCOLAX) Step 3: bisacodyl (DULCOLAX) suppository Step 4: enema Hold for loose stools. senna-docusate (SENOKOT-S/PERICOLACE) 8.6-50 MG per tablet 2 tablet 2 tablet, Oral, 2 TIMES DAILY PRN, constipation, Starting on Wed06/12/24 at 2237, IF more than 1 constipation PRN medication is ordered, administer step-barriga as indicated, moving to the next step ONLY if prior step ineffective. Step 1: senna-docusate (SENOKOT-S; PERICOLACE) OR bisacodyl (DULCOLAX) EC tablet Step 2: polyethylene glycol (MIRALAX/GLYCOLAX) Step 3: bisacodyl (DULCOLAX) suppository Step 4: enema Hold for loose stools. sodium chloride (PF) 0.9% PF flush 10-20 mL 10-20 mL, Intracatheter, EVERY 1 MIN PRN, line flush, post meds or blood draw, to flush each lumen of the CVC Implanted port, Starting on Wed06/15/24 at 0906, 10 mL per port lumen post IV meds; 20 mL per port lumen post post blood draw. sodium chloride (PF) 0.9% PF flush 10-20 mL 10-20 mL, Intracatheter, EVERY 1 HOUR PRN, other, to de-access port when not in use, Starting on Wed06/15/24 at 0906, Use sodium chloride 0.9% at least daily to de-access each port and lock dormant implanted port while not in use. Flush each port access with 10 mL sodium chloride 0.9% MAX: 10 mL per each port lumen sodium chloride (PF) 0.9% PF flush 10-20 mL 10-20 mL, Intracatheter, EVERY 28 DAYS, First dose on Wed06/15/24 at 0910, To flush and lock each port in dual implanted port. Flush each port with 10 mL sodium chloride 0.9% followed by either heparin or anticoagulant citrate as ordered. Max: 10 mL per each port lumen. sodium chloride (PF) 0.9% PF flush 3 mL 3 mL, Intracatheter, EVERY 8 HOURS, First dose on Wed06/12/24 at 2240, to lock peripheral IV dormant line $Given 06/15/2024 6:32 AM FAN INSTALLER 3 mLs $Given 06/13/2024 8:37 PM FAN INSTALLER 3 mLs $Given 06/13/2024 2:12 PM FAN INSTALLER 3 mLs sodium chloride (PF) 0.9% PF flush 3 mL 3 mL, Intracatheter, EVERY 1 MIN PRN, line flush, other, to ensure patency or to lock dormant line, Starting on Wed06/12/24 at 2237 $Given 06/14/2024 2:4 2 PM FAN INSTALLER 3 mLs $Given 06/14/2024 8:30 AM FAN INSTALLER 3 mLs $Given 06/14/2024 1:32 AM FAN INSTALLER 3 mLs sodium chloride 0.9% BOLUS 1,000 mL Intravenous, 1,000 mL, ONCE, at 1,000 mL/hr, Administer over 1 Hours, On Wed06/12/24 at 1850, For 1 dose $New Bag 06/12/2024 7:22 PM FAN INSTALLER 1,000 mLs 1000 mL/hr documented in this encounter Active and Recently Administered Medications Times are shown in [facility]. Scheduled Medication Order 06/13/2024 06/14/2024 06/15/2024 albuterol (PROVENTIL HFA/VENTOLIN HFA) inhaler 2 puff, Inhalation, 4 TIMES DAILY, First dose on Wed06/14/24 at 1200, Check the dose counter on the inhaler to ensure there are doses remaining before administering. Prime by spraying into the air 4 times prior to first use and if not used within 2 weeks. 1237 ($Given - Provider: Ang Charles RN)1639 ($Given - Provider: Clay Avina, SOFIA)1959 ($Given - Provider: Kathy Levy RN) 0805 ($Given - Provider: Clay Avina RN)1200 (Canceled Entry - Provider: Orders Generic Provider - Comment: Automatically canceled at discontinue of medication order) azithromycin (ZITHROMAX) 500 mg in sodium chloride 0.9 % 250 mL intermittent infusion (CANCELED) Routine, 500 mg, Intravenous, EVERY 24 HOURS, First dose on Wed06/13/24 at 2100, Indications: Acute chest syndrome 2204 ($New Bag - Provider: Geovanna Dean RN) 0118 (Stopped - Provider: Geovanna Dean RN) azithromycin (ZITHROMAX) tablet 500 mg Routine, 500 mg, Oral, DAILY, First dose on Wed06/14/24 at 1200, Indications: Community Acquired Pneumonia 1238 ($Given - Provider: Ang Charles RN) 0805 ($Given - Provider: Clay Avina RN) cefTRIAXone (ROCEPHIN) 2 g vial to attach to NS 100 ml bag for ADULTS or NS 50 ml bag for PEDS Routine, 2 g, Intravenous, EVERY 24 HOURS, First dose on Wed06/13/24 at 2000, Lactated Ringer's solution is not compatible with ceftriaxone for injection, Indications: Acute chest syndrome 2016 ($New Bag - Provider: Geovanna Dean RN)2244 (Stopped - Provider: Geovanna Dean RN) 2000 ($New Bag - Provider: Kathy Levy, SOFIA) 0142 (Stopped - Provider: Kathy Levy RN) enoxaparin ANTICOAGULANT (LOVENOX) injection 40 mg 40 mg, Subcutaneous, EVERY 24 HOURS, First dose on Wed06/13/24 at 0800, Contact provider if platelet count drops by 50% or more after enoxaparin initiation OR if platelet count falls below 50 x 10e3/uL 0749 ($Given - Provider: Xu Ravi RN) 0829 ($Given - Provider: Clay Avina RN) 0759 ($Given - Provider: Clay Avina RN) FLUoxetine (PROzac) capsule 10 mg 10 mg, Oral, DAILY, First dose on Wed06/13/24 at 0800 0750 ($Given - Provider: Xu Ravi RN) 1437 ($Given - Provider: Clay Avina RN) 0800 (Canceled Entry - Provider: Orders Generic Provider - Comment: Automatically canceled at discontinue of medication order) folic acid (FOLVITE) tablet 1 mg 1 mg, Oral, DAILY, First dose on Wed06/13/24 at 0800 0749 ($Given - Provider: Xu Ravi RN) 0829 ($Given - Provider: Clay Avina RN) 0805 ($Given - Provider: Clay Avina RN) heparin lock flush 10 unit/mL injection 5-10 mL 5-10 mL, Intracatheter, EVERY 24 HOURS, First dose on Wed06/15/24 at 0910, To lock each dormant port in dual implanted port. MAX: 5 mL of heparin for each lumen Check PRN heparin flush order to see when the last dose of the PRN heparin was given before administering this heparin dose. Flush with sodium chloride 0.9% followed by the heparin flush. 0910 (Canceled Entry - Provider: Orders Generic Provider - Comment: Automatically canceled at discontinue of medication order) heparin lock flush 100 unit/mL injection 5-10 mL 5-10 mL, Intracatheter, EVERY 28 DAYS, First dose on Wed25 at 0910, To de-access each port in dual implanted port. Flush with 10 mL NS sodium chloride 0.9% flush followed by 5 mL heparin (100 units/mL) at discharge and at least every 28 days. MAX: 5 mL per each port lumen 0910 (Canceled Entry - Provider: Orders Generic Provider - Comment: Automatically canceled at discontinue of medication order) hydromorphone (DILAUDID) injection 2 mg 2 mg, Intravenous, EVERY 2 HOURS, First dose (after last modification) on Wed06/14/24 at 1415, May use concomitant with non-opioid analgesics. 1439 ($Given - Provider: Clay Avina RN)1629 ($Given - Provider: Kiki Caal RN)1825 ($Given - Provider: Clay Avina RN)1959 ($Given - Provider: Kathy Levy RN)2150 ($Given - Provider: Kathy Levy RN) 0013 ($Given - Provider: Kathy Levy RN)0205 ($Given - Provider: Kathy Levy RN)0411 ($Given - Provider: Kathy Levy RN)0601 ($Given - Provider: Kathy Levy RN)0758 ($Given - Provider: Clay Avina RN)1000 (Canceled Entry - Provider: Orders Generic Provider - Comment: Automatically canceled at discontinue of medication order)1200 (Canceled Entry - Provider: Orders Generic Provider - Comment: Automatically canceled at discontinue of medication order) hydroxyurea (HYDREA) capsule 1,000 mg 1,000 mg, Oral, 2 TIMES DAILY, First dose on Wed06/12/24 at 2330, Indications: sickle cell anemia, Do not crush May require hepatic and/or renal dose or frequency adjustments. See reference link for guidelines. 0102 ($Given - Provider: Shauna Cuadra RN)0750 ($Given - Provider: Xu Ravi RN)2204 ($Given - Provider: Geovanna Dean RN) 0830 ($Given - Provider: Clay Avina RN)2000 ($Given - Provider: Kathy Levy RN) 0806 ($Given - Provider: Clay Avina RN) Lidocaine (LIDOCARE) 4 % Patch 1 patch 1 patch, Transdermal, Administer over 12 Hours, EVERY 24 HOURS 0800, First dose on Wed06/15/24 at 0800, Apply patch(s) to area of pain. To prevent lidocaine toxicity, patient should be patch free for 12 hrs daily. Patches may be cut to smaller size prior to removing release liner. Reminder: Remove previous patch before applying new patch. NEVER APPLY HEAT OVER PATCH which increases absorption and may lead to local anesthetic toxicity. Do not apply over area where liposomal bupivacaine was injected for 96 hours post injection. Avoid heat exposure to application site or surrounding areas. This includes heat from external sources, such as heating pads, electric blankets, or other equipment. 0813 (Not Given - Provider: Clay Avina RN - Reason: Patient/family refused) sodium chloride (PF) 0.9% PF flush 10-20 mL 10-20 mL, Intracatheter, EVERY 28 DAYS, First dose on Wed06/15/24 at 0910, To flush and lock each port in dual implanted port. Flush each port with 10 mL sodium chloride 0.9% followed by either heparin or anticoagulant citrate as ordered. Max: 10 mL per each port lumen. 0910 (Canceled Entry - Provider: Orders Generic Provider - Comment: Automatically canceled at discontinue of medication order) sodium chloride (PF) 0.9% PF flush 3 mL (CANCELED) 3 mL, Intracatheter, EVERY 8 HOURS, First dose on Wed06/12/24 at 2240, to lock peripheral IV dormant line 0554 (Not Given - Provider: Shauna Cuadra RN - Reason: IV Infusing)1412 ($Given - Provider: Kiki Caal, RN)2037 ($Given - Provider: Geovanna Dean, SOFIA) 0640 (Not Given - Provider: Geovanna Dean RN - Reason: IV Infusing)1446 (Not Given - Provider: Clay Avina RN - Reason: Other - Comment: given under another order)2145 (Not Given - Provider: Kathy Levy RN - Reason: IV Infusing) 0632 ($Given - Provider: Kathy Levy RN) Continuous Medication Order 06/13/2024 06/14/2024 06/15/2024 lactated ringers infusion () at 75 mL/hr, Intravenous, CONTINUOUS, Starting on Wed06/12/24 at 2240, Until Wed06/13/24 at 0839 0135 (Rate/Dose Verify - Provider: Shauna Cuadra, RN)0452 (Rate/Dose Verify - Provider: Shauna Cuadra, SOFIA)0702 (Rate/Dose Verify - Provider: Shauna Cuadra, SOFIA)1215 (Stopped - Provider: Kiki Caal, SOFIA) PRN Medication Order 06/13/2024 06/14/2024 06/15/2024 albuterol (PROVENTIL HFA/VENTOLIN HFA) inhaler 2 puff, Inhalation, 4 TIMES DAILY PRN, shortness of breath, Starting on Wed06/14/24 at 1138, Check the dose counter on the inhaler to ensure there are doses remaining before administering. Prime by spraying into the air 4 times prior to first use and if not used within 2 weeks. calcium carbonate (TUMS) chewable tablet 1,000 mg 1,000 mg, Oral, 4 TIMES DAILY PRN, heartburn, Starting on Wed06/12/24 at 2237 diclofenac (VOLTAREN) 1 % topical gel 2 g 2 g, Topical, 4 TIMES DAILY PRN, inflammatory pain, Starting on Wed06/14/24 at 0912, Apply to area of pain. Use supplied dosing card to measure dose. 1238 ($Given - Provider: Ang Charles RN) 0810 ($Given - Provider: Clay Avina, SOFIA) diphenhydrAMINE (BENADRYL) capsule 25 mg(Linked Group 1) 25 mg, Oral, EVERY 6 HOURS PRN, itching, Starting on Wed06/12/24 at 2139 0539 (See Alternative - Provider: Shauna Cuadra RN)1212 ($Given - Provider: Yolanda Huang RN)2254 ($Given - Provider: Geovanna Dean RN) 1238 ($Given - Provider: Ang Charles RN) diphenhydrAMINE (BENADRYL) injection 25 mg(Linked Group 1) 25 mg, Intravenous, EVERY 6 HOURS PRN, itching, Starting on Wed06/12/24 at 2139 0539 ($Given - Provider: Shauna Cuadra RN)1212 (See Alternative - Provider: Yolanda Huang RN)2254 (See Alternative - Provider: Geovanna Dean RN) 1238 (See Alternative - Provider: Ang Charles RN) heparin lock flush 10 unit/mL injection 5-10 mL 5-10 mL, Intracatheter, EVERY 1 HOUR PRN, post meds or blood draw, other, to lock each port in dual implanted port, Starting on Wed06/15/24 at 0906, Flush each port lumen with the sodium chloride 0.9% flush followed by the heparin flush. MAX dose: 5 mL of heparin for each lumen hydromorphone (DILAUDID) injection 2 mg (CANCELED) 2 mg, Intravenous, EVERY 2 HOURS PRN, moderate pain, IF patient cannot take oral opioid OR IF pain not managed with non-pharmacological, non-opioid, or oral opioid interventions if ordered, Starting on Wed06/13/24 at 0132, May use concomitant with non-opioid analgesics. 0143 ($Given - Provider: Shauna Cuadra RN)0343 ($Given - Provider: Shuana Cuadra RN)0539 ($Given - Provider: Shauna Cuadra RN)0749 ($Given - Provider: Xu Ravi RN)0958 ($Given - Provider: Xu Ravi RN)1212 ($Given - Provider: Yolanda Huang RN)1411 ($Given - Provider: Kiki Caal, SOFIA)1621 ($Given - Provider: Kiki Caal, RN)1833 ($Given - Provider: Kiki Caal, RN)2033 ($Given - Provider: Geovanna Dean RN)2254 ($Given - Provider: Geovanna Dean RN) 0132 ($Given - Provider: Geovanna Dean RN)0404 ($Given - Provider: Geovanna Dean RN)0626 ($Given - Provider: Geovanna Dean RN)0850 ($Given - Provider: Clay Avina, RN)1031 ($Given - Provider: Clay Avina, RN)1238 ($Given - Provider: Ang Charles RN) lidocaine (LMX4) cream Topical, EVERY 1 HOUR PRN, pain, with VAD insertion, Starting on Wed06/12/24 at 2237, Apply at least 30 minutes prior to VAD insertion in divided doses as needed for size of site for insertion. MAX Dose: 2.5 g ( of 5 g tube) Do NOT give if patient has a history of allergy to any local anesthetic or any horacio product. Do NOT use both lidocaine intradermal/subcutaneous injection and the lidocaine cream on the same site. lidocaine 1 % 0.1-1 mL 0.1-1 mL, Other, EVERY 1 HOUR PRN, mild pain with VAD insertion, Starting on Wed06/12/24 at 2237, MAX dose 1 mL subcutaneous OR intradermal along the side of the vein in divided doses as needed for VAD insertion. Do NOT give if patient has a history of allergy to any local anesthetic or any horacio product. Do NOT use both lidocaine intradermal/subcutaneous injection and the lidocaine cream on the same site. melatonin tablet 5 mg 5 mg, Oral, AT BEDTIME PRN, sleep, Starting on Wed06/12/24 at 2138 0128 ($Given - Provider: Shauna Cuadra RN) menthol (ICY HOT) 5 % patch 1 patch 1 patch, Topical, Administer over 8 Hours, EVERY 8 HOURS PRN, muscle soreness, Starting on Wed06/14/24 at 0913, Apply to area of pain Reminder: Remove previous patch before applying new patch. Avoid heat exposure to application site or surrounding areas. This includes heat from external sources, such as heating pads, electric blankets, or other equipment. ondansetron (ZOFRAN ODT) ODT tab 4 mg(Linked Group 2) 4 mg, Oral, EVERY 6 HOURS PRN, nausea/vomiting - 1st line, Starting on Wed06/12/24 at 2237, This is Step 1 of nausea and vomiting management. If nausea not resolved in 15 minutes, go to Step 2 prochlorperazine (COMPAZINE). With dry hands, peel back foil backing and gently remove tablet. Do not push oral disintegrating tablet through foil backing. Administer immediately on tongue and oral disintegrating tablet dissolves in seconds, then swallow with saliva. Liquid not required. 0920 ($Given - Provider: Clay Avina RN) 6769 (See Alternative - Provider: Kathy Levy, SOFIA) ondansetron (ZOFRAN) injection 4 mg(Linked Group 2) 4 mg, Intravenous, EVERY 6 HOURS PRN, nausea/vomiting - 1st line, Administer over 2-5 Minutes, Starting on Wed06/12/24 at 2237, Give IF patient unable to tolerate oral medication. This is Step 1 of nausea and vomiting management. If nausea not resolved in 15 minutes, go to Step 2 prochlorperazine (COMPAZINE). 0920 (See Alternative - Provider: Clay Avina RN) 8253 ($Given - Provider: Kathy Levy RN) senna-docusate (SENOKOT-S/PERICOLACE) 8.6-50 MG per tablet 1 tablet(Linked Group 3) 1 tablet, Oral, 2 TIMES DAILY PRN, constipation, Starting on Wed06/12/24 at 2237, If no bowel movement in 24 hours, increase to 2 tablets by mouth. IF more than 1 constipation PRN medication is ordered, administer step-barriga as indicated, moving to the next step ONLY if prior step ineffective. Step 1: senna-docusate (SENOKOT-S; PERICOLACE) OR bisacodyl (DULCOLAX) EC tablet Step 2: polyethylene glycol (MIRALAX/GLYCOLAX) Step 3: bisacodyl (DULCOLAX) suppository Step 4: enema Hold for loose stools. senna-docusate (SENOKOT-S/PERICOLACE) 8.6-50 MG per tablet 2 tablet(Linked Group 3) 2 tablet, Oral, 2 TIMES DAILY PRN, constipation, Starting on Wed06/12/24 at 2237, IF more than 1 constipation PRN medication is ordered, administer step-barriga as indicated, moving to the next step ONLY if prior step ineffective. Step 1: senna-docusate (SENOKOT-S; PERICOLACE) OR bisacodyl (DULCOLAX) EC tablet Step 2: polyethylene glycol (MIRALAX/GLYCOLAX) Step 3: bisacodyl (DULCOLAX) suppository Step 4: enema Hold for loose stools. sodium chloride (PF) 0.9% PF flush 10-20 mL 10-20 mL, Intracatheter, EVERY 1 MIN PRN, line flush, post meds or blood draw, to flush each lumen of the CVC Implanted port, Starting on Wed06/15/24 at 0906, 10 mL per port lumen post IV meds; 20 mL per port lumen post post blood draw. sodium chloride (PF) 0.9% PF flush 10-20 mL 10-20 mL, Intracatheter, EVERY 1 HOUR PRN, other, to de-access port when not in use, Starting on Wed06/15/24 at 0906, Use sodium chloride 0.9% at least daily to de-access each port and lock dormant implanted port while not in use. Flush each port access with 10 mL sodium chloride 0.9% MAX: 10 mL per each port lumen sodium chloride (PF) 0.9% PF flush 3 mL 3 mL, Intracatheter, EVERY 1 MIN PRN, line flush, other, to ensure patency or to lock dormant line, Starting on Wed06/12/24 at 2237 2257 ($Given - Provider: Geovanna Dean RN) 0132 ($Given - Provider: Geovanna Dean RN)0830 ($Given - Provider: Clay Avina RN)1442 ($Given - Provider: Clay Avina RN) Linked Groups Order Group 1: diphenhydrAMINE (BENADRYL) capsule 25 mgJump to med 25 mg, Oral, EVERY 6 HOURS PRN, itching, Starting on Wed06/12/24 at 2139 Or diphenhydrAMINE (BENADRYL) injection 25 mgJump to med 25 mg, Intravenous, EVERY 6 HOURS PRN, itching, Starting on Wed06/12/24 at 2139 Group 2: ondansetron (ZOFRAN ODT) ODT tab 4 mgJump to med 4 mg, Oral, EVERY 6 HOURS PRN, nausea/vomiting - 1st line, Starting on Wed06/12/24 at 2237, This is Step 1 of nausea and vomiting management. If nausea not resolved in 15 minutes, go to Step 2 prochlorperazine (COMPAZINE). With dry hands, peel back foil backing and gently remove tablet. Do not push oral disintegrating tablet through foil backing. Administer immediately on tongue and oral disintegrating tablet dissolves in seconds, then swallow with saliva. Liquid not required. Or ondansetron (ZOFRAN) injection 4 mgJump to med 4 mg, Intravenous, EVERY 6 HOURS PRN, nausea/vomiting - 1st line, Administer over 2-5 Minutes, Starting on Wed06/12/24 at 2237, Give IF patient unable to tolerate oral medication. This is Step 1 of nausea and vomiting management. If nausea not resolved in 15 minutes, go to Step 2 prochlorperazine (COMPAZINE). Group 3: senna-docusate (SENOKOT-S/PERICOLACE) 8.6-50 MG per tablet 1 tabletJump to med 1 tablet, Oral, 2 TIMES DAILY PRN, constipation, Starting on Wed06/12/24 at 2237, If no bowel movement in 24 hours, increase to 2 tablets by mouth. IF more than 1 constipation PRN medication is ordered, administer step-barriga as indicated, moving to the next step ONLY if prior step ineffective. Step 1: senna-docusate (SENOKOT-S; PERICOLACE) OR bisacodyl (DULCOLAX) EC tablet Step 2: polyethylene glycol (MIRALAX/GLYCOLAX) Step 3: bisacodyl (DULCOLAX) suppository Step 4: enema Hold for loose stools. Or senna-docusate (SENOKOT-S/PERICOLACE) 8.6-50 MG per tablet 2 tabletJump to med 2 tablet, Oral, 2 TIMES DAILY PRN, constipation, Starting on Wed06/12/24 at 2237, IF more than 1 constipation PRN medication is ordered, administer step-barriga as indicated, moving to the next step ONLY if prior step ineffective. Step 1: senna-docusate (SENOKOT-S; PERICOLACE) OR bisacodyl (DULCOLAX) EC tablet Step 2: polyethylene glycol (MIRALAX/GLYCOLAX) Step 3: bisacodyl (DULCOLAX) suppository Step 4: enema Hold for loose stools. documented in this encounter Care Teams Automotive Diagnostic Technician Relationship Specialty Start Date End Date No Ref-Primary, Physician PCP - General 03/15/24 06/17/24 Mor Ramsey Medical Student 04/03/24 Case Samuel MD [address] [place] [address] [address], [address] [place] [address] Assigned Pediatric Specialist Provider 05/18/24 Juhi Benson, RN Specialty Generator Worker Hematology & Oncology 05/29/24 documented as of this encounter
--- OUTSIDE RECORDS SUMMARY | 2024-06-21 22:16 | XMS_ITS | Encounter Summary ---
Author Organization [facility] Address [address] [place] [address]. 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 Author Pain Management General On track( 025 12:40 PM SURFACE LOGGING [employer] LOGGER) Yes Juhi Benson RN Note: Goal Statement: [...] on filedocumented in this encounter Care Teams Dispatcher Refinery Relationship Specialty Start Date End Date No Ref-Primary, Physician PCP - General 03/15/24 06/17/24 Mor Ramsey Medical Student 04/03/24 Case Samuel MD [address] [place] [address] [address], [address] [place] [address] Assigned Pediatric Specialist Provider 05/18/24 Juhi Benson RN Specialty Talent Consultant Hematology & Oncology 05/29/24 documented as of this encounter
--- OUTSIDE RECORDS SUMMARY | 2024-06-21 22:16 | XMS_ITS | Encounter Summary ---
Author Organization [facility] Address [address] [place] [address]. [place] [address] Care Team Providers Care Dental Hygienist Name Role Phone No Ref-Primary, Physician Primary Care Provider Mor Ramsey Unavailable Unavailable Case Samuel MD Unavailable [phone] Juhi Benson RN Unavailable Unavailable Veronica Joseph MD Primary Care Provider [phone] Reason for Visit * Reason Comments Shortness of Breath Chest Pain Fever * Auth/Cert Specialty Diagnoses / Procedures Referred By Contac t Referred To Contact EMERGENCY MEDICINE Diagnoses Sickle cell pain crisis (H) Formerly [facility] Emergency Department [address] [place] [address] Phone: tel: Referral ID Status Reason Start Date Expiration Date Visits Re quested Visits Authorized [id number] 1 1 Encounter Details Date Type Department Care Team (Late st Contact Info) Description 06/16/2024 4:46 PM USED CAR SALESPERSON - 06/20/2024 11:00 AM USED CAR SALESPERSON Hospital Encounter Formerly [facility] 7C Med Surg [address] [place] [phone] Abimael Schofield MD [address] [place] [id number] Esdras Markham MD [address] [place] [address] German Hall MD [address] [place] [address] [address] [place] [address] Sickle cell pain crisis (H) Discharge Disposition: [...] you got money to buy more? No 06/20/2024 Within the past 12 months, d id the food you bought just not last and you didn t have money to get more? No 06/20/2024 Housing Stability Answer Date Recorded Do you have housing? (Sae montes is defined as stable permanent housing and does not include staying ouside in a car, in a tent, in an abandoned building, in an overnight long term, or couch-surfing.) Yes 06/20/2024 Are you worried about losing your housing? No 06/20/2024 Financial Resource Strain Answer Date R ecorded Within the past 12 months, h ave you or your family members you live with been unable to get utilities (heat, electricity) when it was really needed? No 06/20/2024 Transportation Needs Answer Date Record ed Within the past 12 months, h as lack of transportation kept you from medical appointments, getting your medicines, non-medical meetings or appointments, work, or from getting things that you need? No 06/20/2024 Interpersonal Safety Answer Date Record ed Do you feel physically and e motionally safe where you currently live? Yes 06/20/2024 Within the past 12 months, h ave you been hit, slapped, kicked or otherwise physically hurt by someone? No 06/20/2024 Within the past 12 months, h ave you been humiliated or emotionally abused in other ways by your partner or ex-partner? No 06/20/2024 Comments No Sex and Gender Information Value Date Recorded Sex Assigned at Not on file Legal Sex Female 8:25 AM USED CAR SALESPERSON Gender Identity Not on file Sexual Orientation Not on file documented as of this encounter Last Filed Vital Signs Vital Sign Reading Time Taken Comments Blood Pressure 106/62 06/20/2024 6:00 AM USED CAR SALESPERSON Pulse 78 06/19/2024 2:25 PM USED CAR SALESPERSON Temperature 36.7 C (98 F) 06/20/2024 6:00 AM USED CAR SALESPERSON Respiratory Rate 18 06/20/2024 6:00 AM USED CAR SALESPERSON Oxygen Saturation 99% 06/20/2024 6:00 AM USED CAR SALESPERSON Inhaled Oxygen Concentration - - Weight - - Height - - Body Mass Index - - documented in this encounter Discharge Summaries * Rl Elias MD - 06/20/2024 8:39 AM CST [facility] Discharge Summary - Medicine & Pediatrics Date of Admission: 06/16/2024 Date of Discharge: 06/20/2024 Discharging Provider: Dr. Suhail Coughlin Discharge Service: Medicine Service, RICARDO TEAM 1 Discharge Diagnoses Acute sickle cell pain crisis Clinically Significant Risk Factors Follow-ups Needed After Discharge Please be aware that coverage of these services is subject to the terms and limitations of your health insurance plan. Call member services at your health plan with any benefit or coverage questions. Schedule Primary Care visit within: 7 Days Follow up with PCP in 1-2 weeks. Follow up with Hematology as scheduled per their team. Unresulted Labs Ordered in the Past 30 Days of this Admission Date and Time Order Name Status Description 06/16/2024 5:11 PM Blood Culture Peripheral Blood Preliminary These results will be followed up by PCP. Discharge Disposition Discharged to home Condition at discharge: Stable Hospital Course Gianna Hernández is a 29 year old female admitted on 06/16/2024. She has a PMHx of sickle cell disease c/b multiple episodes of sickle cell pain crisis, ACS, functional asplenia, and avascular necrosis of the hip, PE, anxiety, who was recently admitted for an acute pain crisis from 06/12-06/15 but discharged home prior to achieving adequate pain control due to needing to care for her daughter. Shepresented to the ED with continued acute vaso-inclusive pain and chest pain, with steadily improving symptoms throughout hospital stay. #Sickle cell acute pain crisis #Sickle cell anemia, SS Genotype #Suspected Right lower lobe pneumonia Recent hospitalization from 06/12/24-06/15/24 for sickle cell crisis pain, chest pain, and concern for pnuemonia vs acute chest syndrome. She discharged home prior to achieving adequate pain control given need to care for daughter. She presented to the ED again on 06/16/24 with ongoing uncontrolled vaso-occlusive pain in her back and chest tightness. Her inpatient pain plan was utilized which included IV dilaudid 2mg q2hr, maintenance LR, zofran, benadryl, and senna PRN. She completed her antibiotic course of Cefpodoxime on 06/18/24. She received 1 unit of pRBCs on HD2 as her Hbg dropped from 7.4-> 6.3, and remained stable throughout rest of admission at ~8.0. She requested to discharge home today to help care for her daughter and feels like her pain can be managed with her AIRLINE RADIO OPERATOR dilaudid 4mg q6h PRN. Hematology team is aware of discharge today and will arrange follow up. - continue AIRLINE RADIO OPERATOR dilaudid 4 mg Q6H PRN & further supportive cares as needed - follow up with Hematology as scheduled by their team - Continue AIRLINE RADIO OPERATOR hydroxyurea 1000mg BID - Continue AIRLINE RADIO OPERATOR folic acid 1mg daily - Continue topical diclofenac, lidocaine, icy hot PRN #ANGIE, resolved Likely prerenal with decreased PO intake. Cr 0.92 on admission, baseline ~0.61- 0.7. Improved with maintenance fluids. Encouraged adequate water intake at home. #Insomnia - melatonin 3 mg PRN #Anxiety - Continue AIRLINE RADIO OPERATOR fluoxetine Consultations This Hospital Stay HEMATOLOGY ADULT IP CONSULT CARE MANAGEMENT / SOCIAL WORK IP CONSULT Code Status Full Code Nivia Carvajal, MS3 Ricardo 1 Hospitalist Service [facility] 7C MED SURG [address] [facility] [id number] Physical Exam Vital Signs: Temp: 98 ??F (36.7 ??C) Temp src: Oral BP: 106/62 Pulse: 78 Resp: 18 SpO2: 99 % O2 Device: None (Room air) Weight: 0 lbs 0 oz Constitutional: awake, alert, cooperative, no apparent distress, and appears stated age and fatigued ENT: normocephalic, without obvious abnormality Respiratory: no increased work of breathing, good air exchange, and intermittent, mild wheezing present in L lung Cardiovascular: normal apical pulses , normal S1 and S2, and no murmur noted, port in L chest Skin: normal skin color, texture, turgor Neuropsychiatric: General: normal, calm, and normal eye contact Affect: normal and pleasant Primary Care Physician Veronica Joseph Discharge Orders Reason for your hospital stay You were hospitalized for concerns of sickle cell crisis that was recurrent since you went home. You continued to improve while in the hospital with fluids and sticking to your pain plan. You will not need to continue antibiotics. Please stick to your regularly scheduled follow-up plan. Activity Your activity upon discharge: activity as tolerated Follow Up ([facility]) Follow up with primary care provider, Veronica Joseph, within 7 days for hospital follow- up. Thefollowing labs/tests are recommended: CBC. Appointments on [facility]or [facility] (with [facility] or [facility] provider or service). Call [phone] if you haven't heard regarding these appointments within 7 days of discharge. Diet Follow this diet upon discharge: Current Diet:Orders Placed This Encounter Regular Diet Adult Significant Results and Procedures Most Recent 3 CBC's: Recent Labs Lab Test 06/20/24 0548 06/19/24 0930 06/19/24 0017 06/18/24 0824 WBC 9.3 9.9 -- 10.8 HGB 8.0* 8.1* -- 8.1* MCV 91 94 -- 92 PLT 435 471* 467* 452* Most Recent 3 BMP's: Recent Labs Lab Test 06/20/24 0548 06/19/24 0930 06/19/24 0017 06/18/24 0824 NA 133* 135 -- 133* POTASSIUM 4.6 4.4 -- 4.3 CHLORIDE 104 105 -- 105 CO2 21* 21* -- 21* BUN 14.6 12.3 -- 9.2 CR 0.66 0.68 0.72 0.65 ANIONGAP 8 9 -- 7 EVELIN 8.7* 8.9 -- 8.7* GLC 100* 100* -- 92 Most Recent 2 LFT's: Recent Labs Lab Test 06/20/24 0548 06/19/24 0930 AST 67* 54* ALT 40 31 ALKPHOS 98 94 BILITOTAL 1.5* 1.5* Most Recent 3 INR's: Recent Labs Lab Test 06/12/24 1917 05/08/24 1614 03/26/24 0154 INR 1.37* 1.36* 1.36* Discharge Medications Current Discharge Medication List CONTINUE these medications which have NOT CHANGED Details diphenhydrAMINE (BENADRYL) 25 MG tablet Take 1-2 tablets by mouth every 6 hours as needed for itching. FLUoxetine (PROZAC) 10 MG capsule Take 1 capsule (10 mg) by mouth daily. Qty: 40 capsule, Refills: 1 Associated Diagnoses: Severe episode of recurrent major depressive disorder, without psychotic features (H) folic acid (FOLVITE) 1 MG tablet Take 1 tablet (1 mg) by mouth daily. 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 multivitamin, therapeutic (THERA-VIT) TABS tablet Take 1 tablet by mouth daily. 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 May repeat one time in 5-15 minutes if response to initial dose is inadequate. naloxone (NARCAN) 4 MG/0.1ML nasal spray Merced 1 spray (4 mg) into one nostril alternating nostrilsas needed for opioid reversal (for opiate overdose if not breathing and unconscious. have your family member watch video on how to use/read information sheet). every 2-3 minutes until assistance arrives Qty: 2 each, Refills: 0 STOP taking these medications cefpodoxime (VANTIN) 200 MG tablet Comments: Reason for Stopping: Allergies Allergies Allergen Reactions Banana Anaphylaxis, Hives and [...] and Unknown Seizure. Other opioids tolerated. Nuts Anaphylaxis and Hives Per patient, allergy to only cashew nut Tramadol Hives Acetaminophen Hives Cashew Nut Oil Hives Cosigned by Aydee Coughlin MD at 06/20/2024 11:52 AM USED CAR SALESPERSON CAR SALESPERSON CAR SALESPERSON Associated attestation - Aydee Coughlin MD - 06/20/2024 11:52 AM USED CAR SALESPERSON Physician Attestation I saw and evaluated this patient prior to discharge. I discussed the patient with the resident/fellow and agree with plan of care as documented in the note. I personally reviewed vital signs, medications, labs, and imaging. I personally spent 35 minutes on discharge activities. Aydee Jang Mai, MD Date of Service (when I saw the patient): 06/20/24 documented in this encounter Medications at Time [...] by mouth daily. 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 40 tablet 06/15/2024 hydroxyurea (HYDREA) 500 MG capsuleIndication s:History of transfusion,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) Take 2 capsules (1,000 mg) by mouth 2 times daily 120 capsule 11 05/01/2024 ibuprofen (ADVIL/MOTRIN) 200 MG tablet Take 200 mg by mouth every 6 hours as needed for pain. 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 30 tablet 05/01/2024 naloxone (NARCAN) 4 MG/0.1ML nasal spray Merced 1 spray (4 mg) into one nostril alternating nostrils as needed for opioid reversal (for opiate overdose if not breathing and unconscious. have your family member watch video on how to use/read information sheet). every 2-3 minutes until assistance arrives 2 each 06/06/2024 documented as of this encounter Progress Notes * Divya Reyes RN - 06/20/2024 11:00 AM CST Pt understood discharge orders/instructions : Yes. Pt's belongings : Pt took. Discharge medications : N/A. Lines : Port a cath de access. How is pt getting home/transportion : Pt's boyfriend. Discharge papers : Given to the pt. Follow up appt : As stated on the papers. Home supply :N/A. CAR SALESPERSON * Araceli Ramires MD - 06/20/2024 8:42 AM CST Hematology Consult Progress Note I reviewed the patient's history and pertinent medical records on 06/20/2024. I met with the patientand discussed my impression and recommendations. EVENTS/SUBJECTIVE She is feeling reasonably well today. Her pain is under control. She wants to go home and see her 2-year old daughter. LABORATORY Review of pertinent results and my independent interpretation as follows: --Hemoglobin remains stable at 8.0 after transfusion on 06/17 --WBC is 9.3 and platelets are 435, both normal --Creatinine normal at 0.66 --Retics 9.6%, total bilirubin 1.5 reflecting (expected) hemolysis --Blood cultures NGTD IMPRESSION 29-year old woman with sickle cell disease (HbSS) experiencing a relatively uncomplicated sickle cell vaso-occlusive pain crisis with improvement in clinical and laboratory parameters. She wants to go home today. RECOMMENDATIONS --Continue Hydrea and folate --Discharge home today --Will discuss with outpatient team to arrange follow-up Araceli Ramires MD Date of Service: 06/20/2024 Overall, I spent 35 minutes today (DOS) [id number] and/or coordinating care as documented above and specifically listed as below: --Reviewing documentation related to patient's history and this current admission available in [employer] --Review and clinical interpretation of pertinent laboratory test results from this admission --Discussion with the patient --Discussion with patient's primary team --Documentation in the electronic health record CAR SALESPERSON * Linda Lomax MD - 06/19/2024 7:43 AM CST Resident/Fellow Attestation I, Linda Lomax MD, was present with the medical/TIFFANY student who participated in the service and in the documentation of the note. I have verified the history and personally performed the physical exam and medical decision making. I agree with the assessment and plan of care as documented in the note. Linda Lomax MD PGY1 Date of Service (when I saw the patient): 06/19/24 [facility] Progress Note - Medicine Service, MAROON TEAM 1 Date of Admission: 06/16/2024 Assessment & Plan Gianna Hernández is a 29 year old female admitted on 06/16/2024. She has a PMHx of sickle cell disease c/b multiple episodes of sickle cell pain crisis, ACS and avascular necrosis of the hip, PE, anxiety, who was recently admitted for an acute pain crisis who presented with recurrent symptoms. 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 Washemodynamically stable and breathing comfortably on room air, with negative CXR, decreasing concernfor acute chest syndrome. Pt utilized pain plan while inpatient with dilaudid 2 mg IV scheduled, maintenance LR, zofran, benadryl, and senna PRN. However, pt discharged prior to pain being resolved as she needed to take care of her daughter. She presented one day later with similar symptoms of sickle cell pain and improving chest tightness. Found to be tachycardic, breathing comfortably on RA, with stable Hb and no new CXR findings indicative of acute chest syndrome or worsening pneumonia. CXR ruled out rib fractures. Normal troponin decreases concern for ACS as a cause for chest pain. Likely2/2 to unresolved pain crisis when she had to discharge prior to pain being resolved due to need totake care of her daughter. CXR upon admission was clear without any concerns for any infection, opacity had cleared and WBC continuing to downtrend since prior admission. Plan: - Completed course of cefpodoxime on 06/18/24 - s/p 1 unit pRBC on 06/17/24 - Hematology consulted, appreciate any further recs - will continue to follow patient's pain plan as previously noted: - dilaudid 2 mg Q2H scheduled - LR 75 mL/hr for 1-2 days - zofran, benadryl, senna PRN for supportive measures - Continue AIRLINE RADIO OPERATOR hydroxyurea 1000mg BID - Continue AIRLINE RADIO OPERATOR folic acid 1mg daily - Monitoring CBC w/diff, LDH, reticulocyte count, and LDH daily - Type & screened, consented - Continue topical diclofenac, lidocaine, icy hot PRN - Blood cultures, urine culture - NGTD #ANGIE, resolved Likely prerenal with decreased PO intake. Cr 0.92 on admission, baseline ~0.61-0.7. - mIVF with LR - Daily CBC #Insomnia - melatonin 3 mg PRN #Anxiety - Continue AIRLINE RADIO OPERATOR fluoxetine - Benadryl PRN per Pain Plan - Zofran PRN per Pain Plan Diet: Regular Diet Adult DVT Prophylaxis: Enoxaparin (Lovenox) SQ Santiago Catheter: Not present Fluids: 75 mL/hr maintenance IVF LR Lines: PRESENT Port a Cath 05/25/24 Single Lumen Right Chest wall-Site Assessment: WDL Cardiac Monitoring: None Code Status: Full Code Clinically Significant Risk Factors # Hyponatremia: Lowest Na = 133 mmol/L in last 2 days, will monitor as appropriate # Financial/Environmental Concerns: none Social Drivers of Health Disposition Plan Medically Ready for Discharge: Anticipated Tomorrow The patient's care was discussed with the Attending Physician, Dr. Dr Hall . Nivia Carvajal, MS3 Medical Student Medicine Service, [address] Securely message with [employer] info) Text page via [facility] Paging/Directory See signed in provider for up to date coverage information Interval History Endorses continued back pain, relatively unchanged. Feels her chest tightness has improved. She slept ok but has continued to need pain medications q2h overnight given sickle cell crisis. She hopes to discharge tomorrow. Physical Exam Vital Signs: Temp: 98.1 ??F (36.7 ??C) Temp src: Oral BP: 109/55 Pulse: 99 Resp: 18 SpO2: 99 % O2 Device: None (Room air) Weight: 0 lbs 0 oz Constitutional: awake, alert, cooperative, no apparent distress, and appears stated age Eyes: extra-ocular muscles intact and vision intact ENT: normocephalic, without obvious abnormality Respiratory: No increased work of breathing, good air exchange, clear to auscultation bilaterally, no crackles or wheezing Cardiovascular: Normal apical impulse, regular rate and rhythm, normal S1 and S2, no S3 or S4, and no murmur noted Skin: no bruising or bleeding and no redness, warmth, or swelling Musculoskeletal: no lower extremity pitting edema present there is no redness, warmth, or swelling of the joints Neuropsychiatric: General: normal, calm, and normal eye contact Affect: normal and pleasant Medical Decision Making Please see A&P for additional details of medical decision making. Data I have personally reviewed the following data over the past 24 hrs: N/A \ N/A / 467 (H) N/A N/A N/A / N/A N/A N/A 0.72 \ ALT: N/A AST: N/A AP: N/A TBILI: N/A ALB: N/A TOT PROTEIN: N/A LIPASE: N/A Ferritin: N/A % Retic: N/A LDH: N/A Imaging results reviewed over the past 24 hrs: No results found for this or any previous visit (from the past 24 hours). CAR SALESPERSON * Tejal Curry RN - 06/18/2024 6:54 PM CST Shift: [id number] VS: Temp: 98.3 ??F (36.8 ??C) Temp src: Oral BP: 111/63 Pulse: 100 Resp: 16 SpO2: 100 % O2 Device: None (Room air) Pain: Sickle Cell rates pain 7-9/10; Dilaudid Q2 to manage. PRN Benadryl for itching. Neuro: A/Ox4 Cardiac: WDL Respiratory: Stating high 90's RA, pulse ox in place Diet/Appetite: Tolerating Regular Diet /GI: voids spontaneously, 1 reported BM this shift LDAs: R Chest Port: infusing LR @75 Skin: No new deficits Activity: up at [place], independent in room, uses call light appropriately Plan: Continue POC; manage pain CAR SALESPERSON * Linda Lomax MD - 06/18/2024 10:18 AM CST [facility] Progress Note - Medicine Service, MAROON TEAM 1 Date of Admission: 06/16/2024 Assessment & Plan Gianna Hernández is a 29 year old female admitted on 06/16/2024. She has a PMHx of sickle cell disease c/b multiple episodes of sickle cell pain crisis, ACS and avascular necrosis of the hip, PE, anxiety, who was recently admitted for an acute pain crisis who presented with recurrent symptoms. 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 Washemodynamically stable and breathing comfortably on room air, with negative CXR, decreasing concernfor acute chest syndrome.. Pt underwent pain plan while inpatient with dilaudid 2 mg IV scheduled, maintenance LR, zofran, benadryl, and senna PRN. However, pt discharged prior to pain being resolvedas she needed to take care of her daughter. Comes in with similar symptoms. Tachycardic, breathing comfortably on room air, with stable Hb and no new CXR findings indicative of acute chest syndrome. CXR rules out rib fractures. Normal troponin decreases concern for ACS as a cause for chest pain. Likely 2/2 to unresolved pain crisis when she had to discharge prior to pain being resolved due to need to take care of her daughter. CXR upon admission was clear without any concerns for any infection,opacity had cleared. -Hematology consulted, appreciate any further recs > extend course of antibiotics 2 more days, will continue cefpodoxime > will transfuse today for lower hemoglobin of 6.3 > will continue to follow patient's pain plan as previously noted: - dilaudid 2 mg Q2H scheduled - LR 75 mL/hr for 1-2 days - zofran, benadryl, senna PRN for supportive measures -Continue AIRLINE RADIO OPERATOR hydroxyurea 1000mg BID -Continue AIRLINE RADIO OPERATOR folic acid 1mg daily - monitoring CBC w/diff, LDH, reticulocyte count, and LDH daily - type & screened, consented - continue topical diclofenac, lidocaine, icy hot PRN - blood cultures, urine culture >> NGTD #ANGIE, resolved Likely prerenal with decreased PO intake. - mIVF with LR - CMP in AM #Insomnia - Continue AIRLINE RADIO OPERATOR fluoxetine - melatonin 3 mg PRN Diet: Regular Diet Adult DVT Prophylaxis: Enoxaparin (Lovenox) SQ Santiago Catheter: Not present Fluids: 75 mL/hr maintenance IVF LR Lines: PRESENT Port a Cath 05/25/24 Single Lumen Right Chest wall-Site Assessment: WDL Cardiac Monitoring: None Code Status: Full Code Clinically Significant Risk Factors # Hyponatremia: Lowest Na = 133 mmol/L in last 2 days, will monitor as appropriate # Hypocalcemia: Lowest Ca = 8.4 mg/dL in last 2 days, will monitor and replace as appropriate # Financial/Environmental Concerns: Social Drivers of Health Disposition Plan Medically Ready for Discharge: Anticipated in 2-4 Days The patient's care was discussed with the Attending Physician, Dr. Hall . Linda Lomax MD Medicine Service, [facility] TEAM [address] [place] [address] Securely message with [employer] (more info) Text page via [facility] Paging/Directory See signed in provider for up to date coverage information Interval History Patient seen bedside this morning. It is noted not to be any pain at the moment, and she feels a bit better. Has been receiving her scheduled pain medication. Denies any coughing, upper respiratory symptoms, abdominal pain, nausea, dysuria, hematuria. Physical Exam Vital Signs: Temp: 97.6 ??F (36.4 ??C) Temp src: Oral BP: (!) 129/100 Pulse: 78 Resp: 16 SpO2: 100 % O2 Device: None (Room air) Weight: 0 lbs 0 oz Constitutional: awake, alert, cooperative, no apparent distress Respiratory: Clear to auscultation bilaterally. No wheezing Cardiovascular: RRR, no murmur noted Abdomen: soft, non-tender, non-distended Skin: normal skin color, texture, turgor Neuro: alert and oriented x3, appropriately conversational. Nonfocal neuro exam. Medical Decision Making Please see A&P for additional details of medical decision making. Data PAST 24 HR DATA REVIEWED I have personally reviewed the following data over the past 24 hrs: 10.8 \ 8.1 (L) / 452 (H) 133 (L) 105 9.2 / 92 4.3 21 (L) 0.65 \ ALT: 27 AST: 45 AP: 86 TBILI: 1.4 (H) ALB: 3.9 TOT PROTEIN: 7.0 LIPASE: N/A Ferritin: N/A % Retic: 10.0 (H) LDH: 491 (H) Imaging results reviewed over the past 24 hrs: No results found for this or any previous visit (from the past 24 hours). Cosigned by German Hall MD at 06/18/2024 3:16 PM USED CAR SALESPERSON CAR SALESPERSON CAR SALESPERSON Associated attestation - German Hall MD - 06/18/2024 3:16 PM USED CAR SALESPERSON Attestation: This patient has been seen and evaluated by me, German Hall MD. Discussed with the house staff team or resident(s) and agree with the findings and plan in this note. I have reviewed today's Medications, Vital Signs, and Labs. DOS 06/18 No transfusion today * Araceli Ramires MD - 06/18/2024 9:40 AM CST Hematology Consult Progress Note I reviewed the patient's history and pertinent medical records on 06/18/2024. I met with the patientand discussed my impression and recommendations. EVENTS/SUBJECTIVE She reports feeling a bit better but thinks that she will need one additional day to get her painunder control enough so that she can manage at home. She has not had any fevers. 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 RECOMMENDATIONS --Continue pain control per plan --No transfusion today; please discuss with hematology if considering transfusion in the future --Daily CBC with differential, LDH, CMP/LFTs, reticulocyte count --Continue Hydrea and folate Araceli Ramires MD Date of Service: 06/18/2024 Overall, I spent 35 minutes today (DOS) xmcy-ot-loan and/or coordinating care as documented above and specifically listed as below: --Reviewing documentation related to patient's history and this current admission available in [employer] --Review and clinical interpretation of pertinent laboratory test results from this admission --Discussion with the patient --Discussion with patient's primary team --Documentation in the electronic health record CAR SALESPERSON * Rl Elias MD - 06/17/2024 11:31 AM CST [facility] Progress Note - [facility] Date of Admission: 06/16/2024 Assessment & Plan Gianna Hernández is a 29 year old female admitted on 06/16/2024. She has a PMHx of sickle cell disease c/b multiple episodes of sickle cell pain crisis, ACS and avascular necrosis of the hip, PE, anxiety, who was recently admitted for an acute pain crisis who presented with recurrent symptoms. 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 Washemodynamically stable and breathing comfortably on room air, with negative CXR, decreasing concernfor acute chest syndrome.. Pt underwent pain plan while inpatient with dilaudid 2 mg IV scheduled, maintenance LR, zofran, benadryl, and senna PRN. However, pt discharged prior to pain being resolvedas she needed to take care of her daughter. Comes in with similar symptoms. Tachycardic, breathing comfortably on room air, with stable Hb and no new CXR findings indicative of acute chest syndrome. CXR rules out rib fractures. Normal troponin decreases concern for ACS as a cause for chest pain. Likely 2/2 to unresolved pain crisis when she had to discharge prior to pain being resolved due to need to take care of her daughter. CXR upon admission was clear without any concerns for any infection,opacity had cleared. -Hematology consulted, appreciate any further recs > extend course of antibiotics 2 more days, will continue cefpodoxime > will transfuse today for lower hemoglobin of 6.3 > will continue to follow patient's pain plan as previously noted: - dilaudid 2 mg Q2H scheduled - LR 75 mL/hr for 1-2 days - zofran, benadryl, senna PRN for supportive measures -Continue AIRLINE RADIO OPERATOR hydroxyurea 1000mg BID -Continue AIRLINE RADIO OPERATOR folic acid 1mg daily - monitoring CBC w/diff, LDH, reticulocyte count, and LDH daily - type & screened, consented - continue topical diclofenac, lidocaine, icy hot PRN - blood cultures, urine culture to evaluate any further source of infection #ANGIE Likely prerenal with decreased PO intake. - mIVF with LR - CMP in AM #Insomnia - Continue AIRLINE RADIO OPERATOR fluoxetine - melatonin 3 mg PRN Diet: Regular Diet Adult DVT Prophylaxis: Enoxaparin (Lovenox) SQ Santiago Catheter: Not present Fluids: 75 mL/hr maintenance IVF LR Lines: PRESENT Port a Cath 05/25/24 Single Lumen Right Chest wall-Site Assessment: WDL Cardiac Monitoring: None Code Status: Full Code Clinically Significant Risk Factors Present on Admission # Hyponatremia: Lowest Na = 134 mmol/L in last 2 days, will monitor as appropriate # Hypocalcemia: Lowest Ca = 8.4 mg/dL in last 2 days, will monitor and replace as appropriate # Anemia: based on hgb <11 # Financial/Environmental Concerns: Social Drivers of Health Disposition Plan Medically Ready for Discharge: Anticipated in 2-4 Days The patient's care was discussed with the Attending Physician, Dr. Hall . RL ELIAS MD Medicine Service, [address] Securely message with [employer] ([employer] info) Text page via [facility] Paging/Directory See signed in provider for up to date coverage information Interval History Patient seen bedside this morning. It is noted not to be any pain at the moment, but has been receiving her scheduled pain medication. She noted that since she discharged home on 06/15, she has just been laying in bed. Has been having worsening fevers and inability to get up. Has not been eating or drinking very much. Denies any coughing, upper respiratory symptoms, abdominal pain, nausea, dysuria, hematuria. Physical Exam Vital Signs: Temp: 98.2 ??F (36.8 ??C) Temp src: Oral BP: 100/66 Pulse: 78 Resp: 17 SpO2: 100 % O2 Device: None (Room air) Weight: 0 lbs 0 oz Constitutional: awake, alert, cooperative, no apparent distress Respiratory: Clear to auscultation bilaterally. No wheezing Cardiovascular: RRR, no murmur noted Abdomen: soft, non-tender, non-distended Skin: normal skin color, texture, turgor Neuro: alert and oriented x3, appropriately conversational. Nonfocal neuro exam. Medical Decision Making Please see A&P for additional details of medical decision making. Data PAST 24 HR DATA REVIEWED I have personally reviewed the following data over the past 24 hrs: 14.6 (H) \ 6.3 (LL) / 468 (H) 134 (L) 105 16.1 / 95 4.6 20 (L) 0.90 \ ALT: 32 AST: 49 (H) AP: 105 TBILI: 2.0 (H) ALB: 4.6 TOT PROTEIN: 8.6 (H) LIPASE: N/A Trop: 8 BNP: N/A Imaging results reviewed over the past 24 hrs: Recent Results (from the past 24 hours) Chest XR, PA & LAT Narrative EXAM: XR CHEST 2 VIEWS LOCATION: [facility] DATE: 06/16/2024 INDICATION: chest pain COMPARISON: 06/12/2024 Impression IMPRESSION: Left chest port catheter in stable position. Stable position of right central venous catheter. No airspace opacity, pleural effusion or pneumothorax. Cosigned by German Hall MD at 06/18/2024 3:07 PM USED CAR SALESPERSON CAR SALESPERSON CAR SALESPERSON CAR SALESPERSON Associated attestation - German Hall MD - 06/18/2024 3:07 PM USED CAR SALESPERSON Attestation: This patient has been seen and evaluated by me, German Hall MD. Discussed with the house staff team or resident(s) and agree with the findings and plan in this note. I have reviewed today's Medications, Vital Signs, and Labs. DOS 06/17 documented in this encounter H&P Notes * Laquita Kelley MD - 06/16/2024 7:59 PM CST [facility] History and Physical - Medicine Service, [facility] TEAM Date of Admission: 06/16/2024 Assessment & Plan Gianna Hernández is a 29 year old female admitted on 06/16/2024. She has a PMHx of sickle cell disease c/b multiple episodes of sickle cell pain crisis, ACS and avascular necrosis of the hip, PE, anxiety, who was recently admitted for an acute pain crisis who presented with recurrent symptoms. 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 Washemodynamically stable and breathing comfortably on room air, with negative CXR, decreasing concernfor acute chest syndrome.. Pt underwent pain plan while inpatient with dilaudid 2 mg IV scheduled, maintenance LR, zofran, benadryl, and senna PRN. However, pt discharged prior to pain being resolvedas she needed to take care of her daughter. Comes in with similar symptoms. Tachycardic, breathing comfortably on room air, with stable Hb and no new CXR findings indicative of acute chest syndrome. CXR rules out rib fractures. Normal troponin decreases concern for ACS as a cause for chest pain. Hematology consulted and think this is likely 2/2 to unresolved prior pain crisis. -Hematology consulted -Don't transfuse before consulting hematology -Continue cefpodoxime -Hydromorphone 2mg Q2H IV -mIVF with NS at 100ml/hr -Continue AIRLINE RADIO OPERATOR hydroxyurea 1000mg BID -Continue AIRLINE RADIO OPERATOR folic acid 1mg -PRN zofran for nausea -PRN benadryl for itching #ANGIE Likely prerenal with decreased PO intake. -mIVF with NS -Monitor #Insomnia -Continue AIRLINE RADIO OPERATOR fluoxetine Diet: Regular DVT Prophylaxis: Enoxaparin (Lovenox) SQ Santiago Catheter: Not present Fluids: NS at 100ml/hr Lines: PRESENT Cardiac Monitoring: None Code Status: Full Clinically Significant Risk Factors Present on Admission # Anemia: based on hgb <11 # Financial/Environmental Concerns: Disposition Plan Expected Discharge Date: 06/18/2024 The patient's care was discussed with the Attending Physician, Dr. Markham . Laquita Kelley MD Medicine Service, [facility] Securely message with [employer] (more info) Text page via [facility] Paging/Directory See signed in provider for up to date coverage information Chief Complaint Pain History is obtained from the patient History of Present Illness Gianna Hernández is a 29 year old female admitted on 06/16/2024. She has a PMHx of sickle cell disease c/b multiple episodes of sickle cell pain crisis, ACS and avascular necrosis of the hip, PE, Stroke, Anxiety, who is admitted for pain after a recent discharge for pain crisis. Pt endorses worsening leg, back and left sided chest pain after recent discharge. Associated with fever, chills and nausea. She has been having poor PO intake 2/2 to it. She denies SOB, cough, abdominal pain,, vomiting, dysuria, or LE edema. She lives at home with her baby and partner. Denies smoking, alcohol or recreational drug use. 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 Taking? EPINEPHrine (ANY BX GENERIC EQUIV) 0.3 MG/0.3ML injection 2-pack Yes No Sig: Inject 0.3 mg into the muscle as needed for anaphylaxis. May repeat one time in 5-15 minutes if response to initial dose is inadequate. FLUoxetine (PROZAC) 10 MG capsule No No Sig: Take 1 capsule (10 mg) by mouth daily. HYDROmorphone (DILAUDID) 2 MG tablet No No Sig: Take 2 tablets (4 mg) by mouth every 6 hours as needed for severe pain. cefpodoxime (VANTIN) 200 MG tablet No No Sig: Take 1 tablet (200 mg) by mouth 2 times daily for 3 days. diphenhydrAMINE (BENADRYL) 25 MG tablet Yes No Sig: Take 1-2 tablets by mouth every 6 hours as needed for itching. folic acid (FOLVITE) 1 MG tablet No No Sig: Take 1 tablet (1 mg) by mouth daily. hydroxyurea (HYDREA) 500 MG capsule No No Sig: Take 2 capsules (1,000 mg) by mouth 2 times daily ibuprofen (ADVIL/MOTRIN) 200 MG tablet Yes No Sig: Take 200 mg by mouth every 6 hours as needed for pain. multivitamin, therapeutic (THERA-VIT) TABS tablet No No Sig: Take 1 tablet by mouth daily. naloxone (NARCAN) 4 MG/0.1ML nasal spray No No Sig: [place] 1 spray (4 mg) into one nostril alternating nostrils as needed for opioid reversal (for opiate overdose if not breathing and unconscious. have your family member watch video on how to use/read information sheet). every 2-3 minutes until assistance arrives Facility-Administered Medications: None Physical Exam Vital Signs: Temp: 98.9 ??F (37.2 ??C) Temp src: Oral BP: 112/63 Pulse: 103 Resp: 16 SpO2: 96 % Weight: 0 lbs 0 oz Constitutional: awake, alert, cooperative, no apparent distress Respiratory: Clear to auscultation bilaterally. No wheezing Cardiovascular: Tachycardic with regular rhythm Skin: normal skin color, texture, turgor Neuropsychiatric:Thoracic and lumbar midline and paraspinal tenderness Medical Decision Making Cosigned by Esdras Markham MD at 06/17/2024 11:00 AM USED CAR SALESPERSON CAR SALESPERSON CAR SALESPERSON Associated attestation - Esdras Markham MD - 06/17/2024 11:00 AM USED CAR SALESPERSON Physician Attestation I saw this patient with the resident and agree with the resident/fellow's findings and plan of careas documented in the note. [place] findings: Gianna comes to ED with worsening pain after recent discharge. She notes pleuriticpain on deep breaths, lower back pain and muscles soreness / tenderness. No dyspnea or exertional chest pain, no new neurological symptoms. Agree with management as noted below. Please see A&P for additional details of medical decision making. Medical complexity over the past 24 hours: - Parenteral (IV) CONTROLLED SUBSTANCES ordered Esdras Markham MD Date of Service (when I saw the patient): 06/16/24 documented in this encounter Consult Notes * CurtisAdelaide beltran, PET WALKER - 06/18/2024 10:26 AM CSTAssociated Order(s): CARE MANAGEMENT / SOCIAL WORK IP CONSULT Care Management Initial Consult General Information Assessment completed with: Patient, VM-chart review, Gianna Type of CM/SW Visit: Initial Assessment Primary Care Provider verified and updated as needed: Yes Readmission within the last 30 days: previous discharge plan unsuccessful (Exacerbation) Return Category: Exacerbation of disease Reason for Consult: discharge planning Advance Care Planning: Advance Care Planning Reviewed: no concerns identified Communication Assessment Patient's communication style: spoken language (Comoran or Bilingual) Cognitive Cognitive/Neuro/Behavioral: WDL Living Environment: People in home: child(jese), dependent, significant other Vineet Current living Arrangements: house Able to return to prior arrangements: yes Family/Social Support: Care provided by: self Provides care for: child(jese) Marital Status: Domestic Partnership Support system: Significant Other, Children Vineet Description of Support System: Supportive, Involved Support Assessment: Adequate family and caregiver support Current Resources: Patient receiving home care services: No Community Resources: None Equipment currently used at home: none Supplies currently used at home: None Employment/Financial: Employment Status: unemployed Financial Concerns: none Referral to Financial Worker: No Does the patient's insurance plan have a [...] Depression: Not at risk (04/11/2024) [facility] PHQ-2 PHQ-2 TOTAL SCORE: 1 Housing Stability: [...] Social Connections: Socially Integrated (03/28/2024) Received from [email or web address] [facility] Social Connections Do you often feel lonely or isolated from those around you?: 0 Health Literacy: Not on file Functional Status: Prior to admission patient needed assistance: Dependent ADLs:: Independent Dependent IADLs:: Independent Assesssment of Functional Status: Not at functional baseline Mental Health Status: Mental Health Status: No Current Concerns Chemical Dependency Status: Chemical Dependency Status: No Current Concerns Values/Beliefs: Spiritual, Cultural Beliefs, Muslim Practices, Values that affect care: no Discussed ???Partnership in Safe Discharge Planning??? document with patient/family: No Additional Information: Care Management Assessment completed due to elevated risk score. SW met with patient at bedside to complete assessment. Pt was seen by ESTEVAN Campa on 06/13/24. Since her last admissions, pt says nothing has changed at home. Pt continues to to live with her partner Vineet and their two year old daughter. Pt is independent with her I/ADLs and does not use any DME. Family will provide patient with a ride at discharge. Next Steps: No further care management intervention anticipated at this time. Please re- consult if further needs arise. Care management signing off. LAURA Palacios 06/18/2024 [employer] Crewmember Social Work and Care Management Department SEARCHABLE in [employer] - search SOCIAL WORK [place] ([phone]) Wednesday and Wednesday Units: 4A Vocera, 4C Vocera, & 4E Vocera Units: 5A [id number] Vocera, 5A 5627-6151 Vocera , BMT SW 1 BMT SW 2, BMT SW 3 & BMT SW 4 5C OffService 5401 - 5470 5C Off Service [id number] Units: 6A Vocera & 6B Vocera Units: 6C Vocera Units: 7A Vocera & 7B Vocera Units: 7C Med Surg 7401 thru 7418 and 7C Med Surg 7502 thru 7521 Unit: [place] ED Vocera & [place] Obs Vocera [facility] ([phone]) Wednesday and Wednesday Units: 5 Ortho Vocera, 5 Med Surg Vocera & WB ED Vocera Units: 6 Med Surg Vocera, 8 Med Surg Vocera, & 10 ICU Vocera After hours Vocera [facility] and After Hours Vocera [place] Please NOTE changes to times below: Wednesday & Wednesday ([phone] [phone]) Wed-Fri ([phone]) [facility] Recognized Holidays ([id number]) Units: ALL - see above VOCERA links to units CAR SALESPERSON * Drake Nina MD - 06/17/2024 8:55 AM CSTAssociated Order(s): HEMATOLOGY ADULT IP CONSULT Images from the original note were not included. Hematology Consult Note Date of Service: 06/17/2024 Patient: Gianna Hernández Admission Date: 06/16/2024 Hospital Day # 1 Hematology Diagnosis: Sickle Cell Disease Primary Outpatient Telephone Exchange Operator: Dr. Samuel Reason for Consult: Vasoocclusive pain crisis Assessment & Plan: Gianna Hernández is a 29 year old female with PMHx of HbSS sickle cell disease c/b multiple episodes of sickle cell pain crisis, ACS and avascular necrosis of the hip, PE, anxiety, who was recentlyadmitted for an acute pain crisis who presented with recurrent symptoms after being discharged on 06/16. Hematology was consulted in the setting of vaso-occlusive pain crisis. #Vaso-occlusive crisis #Sickle cell disease #Anemia On admission patient was noted to be hemodynamically stable without oxygen requirements. Chest x-ray was negative for airspace opacity pleural effusion or pneumothorax and hence no concern for acute chest. Hemoglobin was noted to be 6.3 on admission, (baseline 7-8) and patient endorsed worsening pain in her bilateral chest on the sides. Patient has tolerated prior blood transfusions. Given low Hb will order 1 unit of PRBC. Patient should complete her course of antibiotics which was initiated on last admission due to concern for pneumonia. Patient's pain is well-controlled on current pain regimen. Please follow pain plan as outlined in the care coordination note. Please continue her AIRLINE RADIO OPERATOR hydrea and folic acid. Recommendations: - Please follow pain plan as outlined in the care coordination note in the summary section. - Ordered 1 unit PRBC along with blood consent which is placed in the chart. - Please continue AIRLINE RADIO OPERATOR hydrea 1000 mg BID, Folate 1mg daily. - Please complete a total 7 day abx course given PNA noted on prior imaging on CXR from 06/14/24 - Monitor CBC w/ diff, retic count, bilirubin daily - Do NOT transfuse blood unless discussed with Hematology first. Do NOT transfuse based solely off hemoglobin level given risk of iron overload and risk of developing RBC antibodies. 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 - Agree with DVT prophylaxis - Continue aggressive pain control per primary team and care plan - Consider topicals (lidocaine patch, diclofenac gel, BenGay, warm packs) if patient finds these helpful Monitor for adverse effects of opioids: - Encourage bowel regimen, including Senna. Consider methylnaltrexone if opioid induced constipation is severe. - Consider diphenhydramine, hydroxyzine PRN for pruritis, consider trial of gabapentin if refractory. - Antiemetics PRN for nausea Follow up - Will continue to follow while inpatient. - Next outpatient follow up to be arranged. Thank you for this consult and the opportunity to treat this pleasant patient. We will continue to follow this patient. Please do not hesitate to page with any questions or concerns. Patient was seen and plan of care was discussed with attending physician Dr. Ramires. Attestation to follow. Drake Nina MD Hematology/Oncology/BMT Fellow PGY4 Pager: [phone] History of Present Illness: Gianna Hernández is a 29 year old female with HbSS sickle cell disease c/b multiple episodes of sickle cell pain crisis, ACS and avascular necrosis of the hip, PE, anxiety, who was recently admitted for an acute pain crisis who presented with recurrent symptoms after being discharged on 06/16/24.Patient was admitted from 06/12/24-06/16/24 and had to leave to take care of her daughter. Upon discharge, patient tried appropriate pain control with oral medications but was unable to manage her pain at home. On my encounter, patient mentioned that she noticed increased sweating and had a febrile episode of100.9 at home. She further endorsed it hurts when she takes a deep breath but denied shortness of breath, palpitations, headache, nausea, vomiting, abdominal pain, generalized focalized weakness. Review of Systems: A comprehensive ROS was performed and found to be negative or non-contributory with the exception of that noted in the HPI above. 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 Recently moved to [place] from [place], [place]. She is 1 of 9 [...] Social Connections: Socially Integrated (03/28/2024) Received from [facility] Social Connections Do you often feel lonely [...] you worried about losing your housing?: No Family History Family History Problem Relation Age of Onset Sickle Cell Trait Daughter Outpatient Medications: Current Facility-Administered Medications Medication Dose Route Frequency Provider Last Rate Last Admin calcium carbonate (TUMS) chewable tablet 1,000 mg 1,000 mg Oral 4x Daily PRN Laquita Kelley MD diphenhydrAMINE (BENADRYL) capsule 25 mg 25 mg Oral Q6H PRN Laquita Kelley MD Or diphenhydrAMINE (BENADRYL) injection 25 mg 25 mg Intravenous Q6H PRN Laquita Kelley MD 25 mg at 06/17/24 0455 enoxaparin ANTICOAGULANT (LOVENOX) injection 40 mg 40 mg Subcutaneous Q24H Laquita Kelley MD 40 mgat 06/16/24 2158 FLUoxetine (PROzac) capsule 10 mg 10 mg Oral Daily Laquita Kelley MD 10 mg at 06/17/24 0752 folic acid (FOLVITE) tablet 1 mg 1 mg Oral Daily Laquita Kelley MD 1 mg at 06/17/24 0734 hydromorphone (DILAUDID) injection 2 mg 2 mg Intravenous Q1H PRN Abimael Schofield MD 2 mg at 06/16/24 2020 hydromorphone (DILAUDID) injection 2 mg 2 mg Intravenous Q2H Laquita Kelley MD 2 mg at 06/17/24 0801 hydroxyurea (HYDREA) capsule 1,000 mg 1,000 mg Oral BID Laquita Kelley MD 1,000 mg at 06/17/24 0750 lidocaine (LMX4) cream Topical Q1H PRN Laquita Kelley MD lidocaine 1 % 0.1-1 mL 0.1-1 mL Other Q1H PRN Laquita Kelley MD ondansetron (ZOFRAN) injection 4 mg 4 mg Intravenous Q6H PRN Laquita Kelley MD 4 mg at 06/16/242019 senna-docusate (SENOKOT-S/PERICOLACE) 8.6-50 MG per tablet 1 tablet 1 tablet Oral BID PRN Laquita Kelley MD Or senna-docusate (SENOKOT-S/PERICOLACE) 8.6-50 MG per tablet 2 tablet 2 tablet Oral BID PRN Laquita Kelley MD sodium chloride (PF) 0.9% PF flush 3 mL 3 mL Intracatheter Q8H Abimael Schofield MD 3 mL at06/17/24 0734 sodium chloride (PF) 0.9% PF flush 3 mL 3 mL Intracatheter q1 min prn Abimael Schofield MD sodium chloride (PF) 0.9% PF flush 3 mL 3 mL Intracatheter Q8H Laquita Kelley MD sodium chloride (PF) 0.9% PF flush 3 mL 3 mL Intracatheter q1 min prn Laquita Kelley MD sodium chloride 0.9 % infusion Intravenous Continuous Abimael Schofield MD 100 mL/hr at 06/17/24 0735 New Bag at 06/17/24 0735 Current Outpatient Medications Medication Sig Dispense Refill cefpodoxime (VANTIN) 200 MG tablet Take 1 tablet (200 mg) by mouth 2 times daily for 3 days. 6 tablet 0 diphenhydrAMINE (BENADRYL) 25 MG tablet Take 1-2 tablets by mouth every 6 hours as needed for itching. FLUoxetine (PROZAC) 10 MG capsule Take 1 [...] mouth 2 times daily 120 capsule 11 ibuprofen (ADVIL/MOTRIN) 200 MG tablet Take 200 mg by mouth every 6 hours as needed for pain. multivitamin, therapeutic (THERA-VIT) TABS tablet Take 1 tablet by mouth daily. 30 tablet 11 EPINEPHrine (ANY BX GENERIC EQUIV) 0.3 MG/0.3ML injection 2-pack Inject 0.3 mg into the muscle as needed for anaphylaxis. May repeat one time in 5-15 minutes if response to initial dose is inadequate. naloxone (NARCAN) 4 MG/0.1ML nasal spray [place] 1 spray (4 mg) into one nostril alternating nostrilsas needed for opioid reversal (for opiate overdose if not breathing and unconscious. have your family member watch video on how to use/read information sheet). every 2-3 minutes until assistance arrives 2 each 0 Physical Exam: Blood pressure 113/73, pulse 100, temperature 98.3 ??F (36.8 ??C), temperature source Oral, resp. rate 19, SpO2 100%. General: alert and cooperative, lying in bed, no acute distress HEENT: sclera anicteric, EOMI, MMM CV: RRR, no murmurs Resp: normal respiratory effort on ambient air GI: soft, non-tender, non-distended, MSK: warm and well-perfused, normal tone Skin: no rashes on limited exam, no jaundice Neuro: Alert and interactive Labs & Studies: I personally reviewed the following studies: ROUTINE LABS (Last four results): CMP Recent Labs Lab 06/17/2461506/16/24173606/15/24 0609 06/14/24 0708 NA 134* 135 136 136 POTASSIUM 4.6 4.2 4.4 4.2 CHLORIDE 105 103 104 107 CO2 20* 18* 21* 20* ANIONGAP 9 14 11 9 GLC 95 122* 104* 92 BUN 16.1 17.3 10.1 6.5 CR 0.90 0.92 0.65 0.71 GFRESTIMATED 88 85 >90 >90 EVELIN 8.4* 9.5 8.9 8.9 PROTTOTAL -- 8.6* -- -- ALBUMIN -- 4.6 -- -- BILITOTAL -- 2.0* -- -- ALKPHOS -- 105 -- -- AST -- 49* -- -- ALT -- 32 -- -- CBC Recent Labs Lab 06/17/2461506/16/24173606/15/24 0609 06/14/24 0708 WBC 14.6* 21.0* 11.8* 13.4* RBC 1.97* 2.34* 2.27* 2.30* HGB 6.3* 7.4* 7.2* 6.9* HCT 17.9* 21.7* 20.4* 21.6* MCV 91 93 90 94 MCH 32.0 31.6 31.7 30.0 MCHC 35.2 34.1 35.3 31.9 RDW 20.1* 19.3* 19.0* 19.4* PLT 468* 551* 500* 501* INR Recent Labs Lab 06/12/24 1917 INR 1.37* Cosigned by Araceli Ramires MD at 06/17/2024 11:14 AM USED CAR SALESPERSON CAR SALESPERSON CAR SALESPERSON Associated attestation - Araceli Ramires MD - 06/17/2024 11:14 AM USED CAR SALESPERSON Hematology Consult Attending Attestation I reviewed the patient's history and pertinent medical records with Dr. Nina on 06/17/2024. We met with the patient and discussed our impression and recommendations. 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 She notes that she feels poorly in the setting of the lower than previous hemoglobin and asks about transfusion. DATA Review of pertinent results as follows: --Hemoglobin is 6.3 which is down from her baseline (7-8) and lower than hemoglobin on recent admission where it was just under 7 --Mild leukocytosis, WBC 14.6 --Mild thrombocytosis, platelets 468 --Normal creatinine 0.90 --Chest radiograph without new infiltrates IMPRESSION Based on the available history, my independent interpretation of the laboratory test results and discussion with the patient, I believe that she is a 29-year old woman with sickle cell disease (HbSS)experiencing a relatively uncomplicated sickle cell vaso-occlusive pain crisis and also with reportof fever/night sweats infection should be excluded. RECOMMENDATIONS --Based on symptoms and hemoglobin 1g below baseline, reasonable to transfuse 1U PRBC --Keeping in mind risk of iron overload and alloimmunization with transfusions, check iron studies (prior to thistransfusion) and please discuss with Hematology before ordering any further transfusions during this admission --Infectious workup (blood cultures, U/A) and complete antibiotics for prior pneumonia --Daily CBC with differential, LDH, CMP/LFTs, reticulocyte count --Continue Hydrea and folate Overall, I spent 60 minutes today (DOS) [id number] and/or coordinating care as documented above and specifically listed as below: --Reviewing documentation related to patient's history and this current admission available in [facility] --Review and clinical interpretation of pertinent laboratory test results and radiology reports from this admission --Discussion of the patient's case with the members of the Hematology Consult Team --Discussion with the patient --Documentation in the electronic health record Araceli Ramires MD Date of Service: 06/17/2024 documented in this encounter ED Notes * Anabella Cooper, RN - 06/17/2024 8:28 PM CST Bed: ED34 Expected date: Expected time: Means of arrival: Comments: G 41 CAR SALESPERSON * Abimael Schofield MD - 06/16/2024 5:18 PM CST ED Provider Note [facility] History Chief Complaint Patient presents with Shortness of Breath Chest Pain Fever HPI Gianna Hernández is a 29-year-old female, sickle cell patient, who was recently hospitalized for possible chest syndrome versus pneumonia. She was sent home on antibiotics which included cefpodoxime. Patient states that she has been at home for 2 days but then noticed to have temperature of 101 with increased chest pain and shortness of breath. Called her doctors who told her she should come back to the ER for further evaluation. 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, sickle retinopathy Stroke (H) unclear location, self-report Past Surgical History: Procedure Laterality Date ARTHROPLASTY KNEE Left details unclear IR CHEST PORT PLACEMENT > 5 YRS OF AGE 105/25/2024 IR CHEST PORT PLACEMENT > 5 YRS OF AGE 105/25/2024 TONSILLECTOMY & ADENOIDECTOMY Bilateral cefpodoxime (VANTIN) 200 MG tablet diphenhydrAMINE (BENADRYL) 25 MG tablet EPINEPHrine (ANY BX GENERIC EQUIV) 0.3 MG/0.3ML injection 2-pack FLUoxetine (PROZAC) 10 MG capsule folic acid (FOLVITE) 1 MG tablet HYDROmorphone (DILAUDID) 2 MG tablet hydroxyurea (HYDREA) 500 MG capsule ibuprofen (ADVIL/MOTRIN) 200 MG tablet multivitamin, therapeutic (THERA-VIT) TABS tablet naloxone (NARCAN) [...] and Unknown Seizure. Other opioids tolerated. Nuts Anaphylaxis and Hives Per patient, allergy to only cashew nut Tramadol Hives Acetaminophen Hives Cashew Nut Oil Hives Family History Family History Problem Relation Age of Onset Sickle Cell Trait Daughter Social History Social History Tobacco Use Smoking status: Never Smokeless tobacco: Never Substance Use Topics Alcohol use: Not Currently Drug use: Never A medically appropriate review of systems was performed with pertinent positives and negatives noted in the HPI, and all other systems negative. Physical Exam BP: 112/63 Pulse: 103 Temp: 98.9 ??F (37.2 ??C) Resp: 16 SpO2: 96 % Physical Exam Vitals and nursing note reviewed. HENT: Head: Atraumatic. Eyes: Extraocular Movements: Extraocular movements intact. Pupils: Pupils are equal, round, and reactive to light. Cardiovascular: Rate and Rhythm: Regular rhythm. Pulmonary: Breath sounds: Normal breath sounds. Musculoskeletal: Comments: Intact Neurological: General: No focal deficit present. Mental Status: She is alert and oriented to person, place, and time. Psychiatric: Mood and Affect: Mood normal. ED Course, Procedures, & Data Orders Placed This Encounter Procedures Chest XR, PA & LAT Comprehensive metabolic panel Troponin T, High Sensitivity Prolactin CBC with platelets and differential RBC and Platelet Morphology Troponin T, High Sensitivity EKG 12 lead Peripheral IV catheter Adult Type and Screen Admit to Inpatient Blood Culture Peripheral Blood CBC with platelets differential ABO/Rh type and screen EKG revealed a sinus tachycardia rate of 122 with a [place] interval of 0.128 and a QRS duration of 0.074. The patient had a normal axis with no acute ST or T wave changes significant for ischemia. This is read by me personally. Procedures Results for orders placed or performed during the hospital encounter of 06/16/24 Chest XR, PA & LAT Status: None Narrative EXAM: XR CHEST 2 VIEWS LOCATION: [facility] DATE: 06/16/2024 INDICATION: chest pain COMPARISON: 06/12/2024 Impression IMPRESSION: Left chest port catheter in stable position. Stable position of right central venous catheter. No airspace opacity, pleural effusion or pneumothorax. Comprehensive metabolic panel Status: Abnormal Result Value Ref Range Sodium 135 135 - 145 mmol/L Potassium 4.2 3.4 - 5.3 mmol/L Carbon Dioxide (CO2) 18 (L) 22 - 29 mmol/L Anion Gap 14 7 - 15 mmol/L Urea Nitrogen 17.3 6.0 - 20.0 mg/dL Creatinine 0.92 0.51 - 0.95 mg/dL GFR Estimate 85 >60 mL/min/1.73m2 Calcium 9.5 8.8 - 10.4 mg/dL Chloride 103 98 - 107 mmol/L Glucose 122 (H) 70 - 99 mg/dL Alkaline Phosphatase 105 40 - 150 U/L AST 49 (H) 0 - 45 U/L ALT 32 0 - 50 U/L Protein Total 8.6 (H) 6.4 - 8.3 g/dL Albumin 4.6 3.5 - 5.2 g/dL Bilirubin Total 2.0 (H) <=1.2 mg/dL Troponin T, High Sensitivity Status: Normal Result Value Ref Range Troponin T, High Sensitivity 6 <=14 ng/L Prolactin Status: Abnormal Result Value Ref Range Prolactin 55 (H) 5 - 23 ng/mL CBC with platelets and differential Status: Abnormal (Preliminary result) Result Value Ref Range WBC Count 21.0 (H) 4.0 - 11.0 10e3/uL RBC Count 2.34 (L) 3.80 - 5.20 10e6/uL Hemoglobin 7.4 (L) 11.7 - 15.7 g/dL Hematocrit 21.7 (L) 35.0 - 47.0 % MCV 93 78 - 100 fL MCH 31.6 26.5 - 33.0 pg MCHC 34.1 31.5 - 36.5 g/dL RDW 19.3 (H) 10.0 - 15.0 % Platelet Count 551 (H) 150 - 450 10e3/uL Adult Type and Screen Status: None (Preliminary result) Result Value Ref Range ABO/RH(D) A POS SPECIMEN EXPIRATION DATE [id number] CBC with platelets differential Status: Abnormal (In process) Narrative The following orders were created for panel order CBC with platelets differential. Procedure Abnormality Status --------- ------ CBC with platelets and d...[[id number]] Abnormal Preliminary result RBC and Platelet Morphology[[id number]] In process Please view results for these tests on the individual orders. ABO/Rh type and screen Status: None (In process) Narrative The following orders were created for panel order ABO/Rh type and screen. Procedure Abnormality Status --------- ------ Adult Type and Screen[[id number]] Preliminary result Please view results for these tests on the individual orders. Medications sodium chloride (PF) 0.9% PF flush 3 mL (has no administration in time range) sodium chloride (PF) 0.9% PF flush 3 mL (has no administration in time range) sodium chloride 0.9% BOLUS 500 mL (500 mLs Intravenous $New Bag 06/16/24 8758) sodium chloride 0.9 % infusion (has no administration in time range) hydromorphone (DILAUDID) injection 2 mg (2 mg Intravenous $Given 06/16/24 6822) Critical care was not performed. Medical Decision Making The patient's presentation was of moderate complexity (a chronic illness mild to moderate exacerbation, progression, or side effect of treatment). The patient's evaluation involved: ordering and/or review of 3+ test(s) in this encounter (see above) The patient's management necessitated high risk (a decision regarding hospitalization). Assessment & Plan I have reviewed the nursing notes. Patient had a sickle cell treatment pain plan and this was followed. The patient received 2 doses of her Dilaudid and still had uncontrolled pain along with the fact her white count was elevated and bilirubin is elevated as well. At this time the patient was discussed with the medicine service and the patient will be brought into the hospital for her sickle cell pain crisis and possible chest syndrome. I have reviewed the findings, diagnosis, and plan with the patient. Final diagnoses: Sickle cell pain crisis (H) - r/o chest syndrome Admit Med Abimael Schofield MD [facility]ENC[facility]PART[facility] 06/16/2024 Abimael Schofield MD 06/16/24 1846 CAR SALESPERSON * Yelitza Manriquez RN - 06/16/2024 4:37 PM CST Images from the original note were not included. Pt ambulatory to ED after recent stay for sickle cell crisis. Pt returned home and started to experience SOB, chest pain and fevers. PT advised to return to ED from nurses hot line. BP 112/63 Pulse 103 Temp 98.9 ??F (37.2 ??C) (Oral) Resp 16 SpO2 96% Hx: sickle cell anemia Triage Assessment (Adult) Row Name 06/16/24 1637 Triage Assessment Airway WDL WDL Respiratory WDL Respiratory WDL X SOB Skin Circulation/Temperature WDL Skin Circulation/Temperature WDL WDL Cardiac WDL Cardiac WDL X chest pain,. tachy Peripheral/Neurovascular WDL Peripheral Neurovascular WDL WDL Cognitive/Neuro/Behavioral WDL Cognitive/Neuro/Behavioral WDL WDL CAR SALESPERSON documented in this encounter Miscellaneous Notes * Plan of Care - Rene Morocho RN - 06/20/2024 6:18 AM CST Goal Outcome Evaluation: Plan of Care Reviewed With: patient Overall Patient Progress: no changeOverall Patient Progress: no change Outcome Evaluation: Pt A/Ox4, VSS on RA. Up indep to bathroom, last BM was 06/19 and voiding in toilet. Skin CDI. L C port infusing LR at 75mL/hr. R C port present but not accessed. Pt pain usually inbetween a 5 to 8 out of 10. Pt did have a pain attack around 05:50am of 10/10 pain. Pain fairly wellmanaged with scheduled 2mg IV dilaudid q2hrs. Pt verbalized hope to discharge to home today CAR SALESPERSON * Summary of Care - Rene Morocho RN - 06/20/2024 12:38 AM CST (Change note type to summary of care) Reason for admission: Sickle cell crisis Admitted from: [id number] Report received from: Sarai Aburto 2 RN skin assessment completed by: Ar Fleming and Sarai Mayberry - Findings (add LDA if needed): NA Bed algorithm reevaluated: NA Was airflow pump ordered?: NO Suction set up in room? YES Care plan (primary problem) and education initiated: YES MDRO education done if applicable: NA Pt informed about policy regarding no IV pumps off unit: Yes Flu shot ordered? (January-July only): No, pt declined Detailed Belongings: [place] sweater, brown jacket, sweatpants, glasses, wallet, phone, 2 chargers, air pods CAR SALESPERSON * Plan of Care - Sarai Shrestha RN - 06/20/2024 12:11 AM CST Goal Outcome Evaluation: BP 103/79,HR 87bpm, resp 18,O2 99 RA Shift:2813-1383 Alert and oriented x4. Independent with ADLs. VSS. Pain managed with Q 2 hrs IV Dilaudid. C/O nausea PRN Zofran administered;effective. R chest port infusing LR @ 75 ml/hr. Report given to Rene BLACK in 7C. CAR SALESPERSON * Plan of Care - Amelia Gannon RN - 06/19/2024 6:26 AM CST Images from the original note were not included. Shift: 4755-4114 VS: BP 118/85 (BP Location: Left arm) Pulse 99 Temp 98.2 ??F (36.8 ??C) (Oral) Resp 18 [id number]% Pain: Sickle cell pain. Tx with scheduled dilaudid q2hr Neuro: WDL, A&Ox4 Cardiac: WDL Respiratory: WDL, on RA, on pulse ox GI/: WDL, Voiding spontaneously Diet/Appetite: Regular diet LDA's: R. Chest port infusing LR @ 75 Skin: WDL Activity: Independent Tests/Procedures: Pertinent Labs/Lab Collection: Plan: Goal Outcome Evaluation: CAR SALESPERSON * Plan of Care - Adelaide Acevedo MSW - 06/18/2024 11:05 AM CST Goal Outcome Evaluation: Plan of Care Reviewed With: patient Overall Patient Progress: improvingOverall Patient Progress: improving Pt anticipates discharge home w/ family once med ready CAR SALESPERSON * Plan of Care - Amelia Gannon RN - 06/18/2024 6:51 AM CST Shift: 9608-6003 VS: BP 115/66 (BP Location: Right arm, Patient Position: Semi-Gilbert's, Cuff Size: Adult Small) Pulse 73 Temp 98.1 ??F (36.7 ??C) (Oral) Resp 16 SpO2 100% Pain: Sickle Cell pain. Tx with scheduled dilaudid q2 hr Neuro: WDL, A&Ox4 Cardiac: WDL Respiratory: WDL, On RA, On pulse ox GI/: WDL, Voiding spontaneously. No bm reported this shift Diet/Appetite: Regular LDA's: R. Chest port NACL 75mL/hr Skin: WDL, No new deficits noted Activity: Independent Tests/Procedures: Pertinent Labs/Lab Collection: CBC, CMP, Lactate, Platelet, Creatinine, Reticulocyte Plan: Goal Outcome Evaluation: CAR SALESPERSON * Plan of Care - Lowell Pepper RN - 06/17/2024 9:37 PM CSTSummary: 9430-3551 BP 110/64 (BP Location: Right arm, Patient Position: Semi-Gilbert's, Cuff Size: Adult Small) Pulse78 Temp 98.1 ??F (36.7 ??C) (Oral) Resp 17 SpO2 98% Reason for admission: Sickle Cell Activity: Up at chandler Pain: Consistent pain, Q2hr IV Dilaudid orders. Neuro: Alert and oriented x4. Cardiac: WNL, denies chest pain and SOB. Respiratory: RA, denies SOB. GI/: Voiding spontaneously, reported passing gas no BM during the shift. Diet: Reg diet, tolerated meals well. Reported N/V. x1 PRN Zofran given with effective results. Lines: Chest port infusing IV fluids. Wounds: N/A no skin issues noted. Labs/imaging: See labs and results tab for updates values. New changes this shift: Pt rested between cares, is able to make needs known. Continue to follow POC, awaiting inpatient bed availability. Intake/Output Summary (Last 24 hours) at 06/17/2024 2135 Last data filed at 06/17/2024 2100 Gross per 24 hour Intake 3898.42 ml Output Not Measured-- Net 3898.42 ml Goal Outcome Evaluation: Improving Plan of Care Reviewed With: patient Overall Patient Progress: improving Problem: Adult Inpatient Plan of Care Goal: Readiness for Transition of Care Outcome: Progressing Problem: Adult Inpatient Plan of Care Goal: Optimal Comfort and Wellbeing Outcome: Progressing CAR SALESPERSON * Provider Notification - Lowell Pepper RN - 06/17/2024 10:00 AM CST 06/17/24 0857 Critical Test Results/Notification Critical Lab Result (Lab Name and Value) Hgb 6.3 What Time Did The Lab Notify You? (follow up page. to day time provider.) Provider Notified yes Date of Provider Notification 06/17/24 Time of Provider Notification 0848 Mechanism of Provider notification telephone (via [employer]) What Provider Did You Notify? Neptali Elias MD Response aware (per primary teams. Awaiting recommendations from hematology team.) CAR SALESPERSON * Plan of Care - Zaynab Veliz RN - 06/17/2024 6:55 AM CST Goal Outcome Evaluation: Plan of Care Reviewed With: patient Overall Patient Progress: improving Outcome Evaluation: Pt presented to ED with acute onset left sided chest pain & sickle cell pain crisis Shift: 9210-8394 VS: Stable on RA, afebrile Neuro: A&Ox4 Labs: hemoglobin 6.3, provider notified Pain/Nausea: pain rated 8-9/10 PRN: benadryl X2, zofran x 1 Diet: Regular IV Access: none Infusion(s): NACL 100ml/hr Lines/Drains: L-chest wall GI/: voids without difficulty Skin: intact Mobility: up ad chandler Plan: Continue POC CAR SALESPERSON * Provider Notification - Zaynab Veliz RN - 06/17/2024 6:47 AM USED CAR SALESPERSON Jovan encinas lab called, critical value, pt hemoglobin 6.3. CAR SALESPERSON * Medication Scribe - Admission Medication History - Yennifer Edwards - 06/17/2024 4:14 AM CST Medication Scribe Admission Medication History Admission medication history is complete. The information provided in this note is only as accurateas the sources available at the time of the update. Information Source(s): Patient via in-person Pertinent Information: per pt+CE, pt reported taking medications on [employer]LINE [employer]PERATOR medication list as directed. No DRH. Changes made to [employer]PER[employer] medication list: Added: None Deleted: None Changed: None Allergies reviewed with patient and updates made in EHR: yes Medication History Completed By: Yennifer Edwards 06/17/2024 4:14 AM AIRLINE RADIO OPERATOR Med List Medication Sig Last Dose/Taking cefpodoxime (VANTIN) 200 MG tablet Take 1 tablet (200 mg) by mouth 2 times daily for 3 days. 06/16/2024 Morning diphenhydrAMINE (BENADRYL) 25 MG tablet Take 1-2 tablets by mouth every 6 hours as needed for itching. 06/16/2024 Morning FLUoxetine (PROZAC) 10 MG capsule Take 1 capsule (10 mg) by mouth daily. 06/16/2024 folic acid (FOLVITE) 1 MG tablet Take 1 tablet (1 mg) by mouth daily. 06/16/2024 Morning HYDROmorphone (DILAUDID) 2 MG tablet Take 2 tablets (4 mg) by mouth every 6 hours as needed for severe pain. 06/16/2024 Morning hydroxyurea (HYDREA) 500 MG capsule Take 2 capsules (1,000 mg) by mouth 2 times daily 06/16/2024 Morning ibuprofen (ADVIL/MOTRIN) 200 MG tablet Take 200 mg by mouth every 6 hours as needed for pain. 06/16/2024 Morning multivitamin, therapeutic (THERA-VIT) TABS tablet Take 1 tablet by mouth daily. 06/16/2024 Morning CAR SALESPERSON CAR SALESPERSON documented in this encounter Plan of Treatment Not on file documented as of this encounter Goals Goal Patient Goal Type Associated Problems Recent Progress Patient-Stated? Author Pain Management General On track( 025 12:40 PM USED CAR SALESPERSON) Yes Juhi Benson, SOFIA Note: Goal Statement: [...] Comments CBC WITH PLATELETS AND DIFFERENTIAL STAT 06/20/2024 5:48 AM USED CAR SALESPERSON LACTATE DEHYDROGENASE Routine 06/20/2024 5:48 AM USED CAR SALESPERSON CBC WITH PLATELETS & DIFFERENTIAL STAT 06/20/2024 5:48 AM USED CAR SALESPERSON RETICULOCYTE COUNT Routine 06/20/2024 5: 48 AM USED CAR SALESPERSON COMPREHENSIVE METABOLIC PANEL Routine 06/20/2024 5:48 AM USED CAR SALESPERSON RBC AND PLATELET MORPHOLOGY STAT 06/19/2024 9:30 AM USED CAR SALESPERSON CBC WITH PLATELETS AND DIFFERENTIAL STAT 06/19/2024 9:30 AM USED CAR SALESPERSON LACTATE DEHYDROGENASE STAT 06/19/2024 9:30 AM USED CAR SALESPERSON CBC WITH PLATELETS & DIFFERENTIAL STAT 06/19/2024 9:30 AM USED CAR SALESPERSON RETICULOCYTE COUNT STAT 06/19/2024 9: 30 AM USED CAR SALESPERSON COMPREHENSIVE METABOLIC PANEL STAT 06/19/2024 9:30 AM USED CAR SALESPERSON PLATELET COUNT STAT 06/19/2024 12:17 AM USED CAR SALESPERSON CREATININE STAT 06/19/2024 12:17 AM USED CAR SALESPERSON CBC WITH PLATELETS AND DIFFERENTIAL STAT 06/18/2024 8:24 AM USED CAR SALESPERSON LACTATE DEHYDROGENASE STAT 06/18/2024 8:24 AM USED CAR SALESPERSON CBC WITH PLATELETS & DIFFERENTIAL STAT 06/18/2024 8:24 AM USED CAR SALESPERSON RETICULOCYTE COUNT STAT 06/18/2024 8: 24 AM USED CAR SALESPERSON DIFFERENTIAL STAT 06/18/2024 8:24 AM USED CAR SALESPERSON COMPREHENSIVE METABOLIC PANEL STAT 06/18/2024 8:24 AM USED CAR SALESPERSON ROUTINE UA WITH MICROSCOPIC REFLEX TO CULTURE STAT 06/17/2024 1:11 PM USED CAR SALESPERSON TRANSFUSE RED BLOOD CELLS (UNIT) STAT 06/17/2024 10:26 AM USED CAR SALESPERSON PREPARE RED BLOOD CELLS (UNIT) STAT 06/17/2024 9:12 AM USED CAR SALESPERSON TRANSFERRIN Add-On 06/17/2024 6:16 AM USED CAR SALESPERSON IRON AND IRON BINDING CAPACITY Add-On 06/17/2024 6:16 AM USED CAR SALESPERSON BASIC METABOLIC PANEL STAT 06/17/2024 6:16 AM USED CAR SALESPERSON CBC WITH PLATELETS STAT 06/17/2024 6: 16 AM USED CAR SALESPERSON TROPONIN T, HIGH SENSITIVITY STAT 06/16/2024 9:33 PM USED CAR SALESPERSON XR CHEST 2 VIEWS STAT 06/16/2024 6:09 PM USED CAR SALESPERSON RBC AND PLATELET MORPHOLOGY STAT 06/16/2024 5:37 PM USED CAR SALESPERSON CBC WITH PLATELETS AND DIFFERENTIAL STAT 06/16/2024 5:37 PM USED CAR SALESPERSON TYPE AND SCREEN, ADULT STAT 5:37 PM USED CAR SALESPERSON TROPONIN T, HIGH SENSITIVITY STAT 06/16/2024 5:37 PM USED CAR SALESPERSON CBC WITH PLATELETS & DIFFERENTIAL STAT 06/16/2024 5:37 PM USED CAR SALESPERSON PROLACTIN STAT 06/16/2024 5:37 PM USED CAR SALESPERSON COMPREHENSIVE METABOLIC PANEL STAT 06/16/2024 5:37 PM USED CAR SALESPERSON BLOOD CULTURE STAT 06/16/2024 5:37 PM USED CAR SALESPERSON ABO/RH TYPE AND SCREEN STAT 5:37 PM USED CAR SALESPERSON EKG 12-LEAD, TRACING ONLY STAT 06/16/2024 4:55 PM USED CAR SALESPERSON documented in this encounter Results * (ABNORMAL) CBC with platelets and differential (06/20/2024 5:48 AM USED CAR SALESPERSON) WBC Count 9.3 4.0 - 11.0 10e3/uL 06/20/2024 6:05 AM USED CAR SALESPERSON [facility] RBC Count 2.54(L) 3.80 - 5.20 10e6/uL 06/20/2024 6:05 AM USED CAR SALESPERSON [facility] Hemoglobin 8.0(L) 11.7 - 15.7 g/dL 06/20/2024 6:05 AM USED CAR SALESPERSON [facility] Hematocrit 23.2(L) 35.0 - 47.0 % 06/20/2024 6:05 AM USED CAR SALESPERSON [facility] MCV 91 78 - 100 fL 06/20/2024 6:05 AM USED CAR SALESPERSON [facility] MCH 31.5 26.5 - 33.0 pg 06/20/2024 6:05 AM USED CAR SALESPERSON [facility] MCHC 34.5 31.5 - 36.5 g/dL 06/20/2024 6:05 AM USED CAR SALESPERSON [facility] RDW 18.4(H) 10.0 - 15.0 % 06/20/2024 6:05 AM USED CAR SALESPERSON [facility] Platelet Count 435 150 - 450 10e3/uL 06/20/2024 6:05 AM USED CAR SALESPERSON [facility] % Neutrophils 47 % 06/20/2024 6:05 AM USED CAR SALESPERSON [facility] % Lymphocytes 43 % 06/20/2024 6:05 AM USED CAR SALESPERSON [facility] % Monocytes 6 % 06/20/2024 6:05 AM USED CAR SALESPERSON [facility] % Eosinophils 3 % 06/20/2024 6:05 AM USED CAR SALESPERSON [facility] % Basophils 1 % 06/20/2024 6:05 AM USED CAR SALESPERSON [facility] % Immature Granulocytes 1 % 06/20/2024 6:05 AM USED CAR SALESPERSON [facility] NRBCs per 100 WBC 1(H) <1 /100 025 6:05 AM USED CAR SALESPERSON [facility] Absolute Neutrophils 4.4 1.6 - 8.3 10e3/uL 06/20/2024 6:05 AM USED CAR SALESPERSON [facility] Absolute Lymphocytes 4.0 0.8 - 5.3 10e3/uL 06/20/2024 6:05 AM USED CAR SALESPERSON [facility] Absolute Monocytes 0.5 0.0 - 1.3 10e3/uL 06/20/2024 6:05 AM USED CAR SALESPERSON [facility] Absolute Eosinophils 0.3 0.0 - 0.7 10e3/uL 06/20/2024 6:05 AM USED CAR SALESPERSON [facility] Absolute Basophils 0.1 0.0 - 0.2 10e3/uL 06/20/2024 6:05 AM USED CAR SALESPERSON [facility] Absolute Immature Granulocytes 0.1 <=0.4 10e3/uL 06/20/2024 6:05 AM USED CAR SALESPERSON [facility] Absolute NRBCs 0.1 10e3/uL 06/20/2024 6:05 AM USED CAR SALESPERSON [facility] Blood (Portacath) IVAD (Port) / Unknown 06/20/2024 5:48 AM USED CAR SALESPERSON 06/20/2024 5:55 AM USED CAR SALESPERSON Rl Elias MD LAB - BLOOD ORDER SYD Final Result [facility] [place] [facility] [address] [facility], [address] * (ABNORMAL) Reticulocyte count (06/20/2024 5:48 AM USED CAR SALESPERSON) [facility] % Reticulocyte 9.6(H) 0.5 - 2.0 % 06/20/2024 6:37 AM USED CAR SALESPERSON [facility] Absolute Reticulocyte 0.236(H) 0.025 - 0.095 10e6/uL 06/20/2024 6:37 AM USED CAR SALESPERSON [facility] Blood (Portacath) IVAD (Port) / Unknown 06/20/2024 5:48 AM USED CAR SALESPERSON 06/20/2024 5:55 AM USED CAR SALESPERSON Rl Elias MD LAB - BLOOD ORDER SYD Final Result [facility] [place] [facility] [address] [facility], [address] [place] [address], [place] * (ABNORMAL) Comprehensive metabolic panel (06/20/2024 5:48 AM USED CAR SALESPERSON) Sodium 133(L) 135 - 145 mmol/L 06/20/2024 6:35 AM USED CAR SALESPERSON [facility] Potassium 4.6 3.4 - 5.3 mmol/L 06/20/2024 6:35 AM USED CAR SALESPERSON [facility] Carbon Dioxide (CO2) 21(L) 22 - 29 mmol/L 06/20/2024 6:35 AM USED CAR SALESPERSON [facility] Anion Gap 8 7 - 15 mmol/L 06/20/2024 6:35 AM USED CAR SALESPERSON [facility] Urea Nitrogen 14.6 6.0 - 20.0 mg/dL 06/20/2024 6:35 AM USED CAR SALESPERSON [facility] Creatinine 0.66 0.51 - 0.95 mg/dL 06/20/2024 6:35 AM USED CAR SALESPERSON [facility] GFR Estimate >90 >60 mL/min/1.7 3m2 06/20/2024 6:35 AM USED CAR SALESPERSON [facility] Comment:eGFR calculated usin 2020 CKD-EPI equation. Calcium 8.7(L) 8.8 - 10.4 mg/dL 06/20/2024 6:35 AM USED CAR SALESPERSON [facility] Chloride 104 98 - 107 mmol/L 06/20/2024 6:35 AM USED CAR SALESPERSON [facility] Glucose 100(H) 70 - 99 mg/dL 06/20/2024 6:35 AM USED CAR SALESPERSON [facility] Alkaline Phosphatase 98 40 - 150 U/L 06/20/2024 6:35 AM USED CAR SALESPERSON [facility] AST 67(H) 0 - 45 U/L 06/20/2024 6:35 AM USED CAR SALESPERSON [facility] ALT 40 0 - 50 U/L 06/20/2024 6:35 AM USED CAR SALESPERSON [facility] Protein Total 7.2 6.4 - 8.3 g/dL 06/20/2024 6:35 AM USED CAR SALESPERSON [facility] Albumin 3.9 3.5 - 5.2 g/dL 06/20/2024 6:35 AM USED CAR SALESPERSON [facility] Bilirubin Total 1.5(H) <=1.2 mg/dL 06/20/2024 6:35 AM USED CAR SALESPERSON [facility] Blood (Portacath) IVAD (Port) / Unknown 06/20/2024 5:48 AM USED CAR SALESPERSON 06/20/2024 5:55 AM USED CAR SALESPERSON Rl Elias MD LAB - BLOOD ORDER SYD Final Result [facility] [place] [facility] [address] [facility], [address] [phone] * (ABNORMAL) Lactate Dehydrogenase (06/20/2024 5:48 AM USED CAR SALESPERSON) [facility] Lactate Dehydrogenase 571(H) 0 - 250 U/L 06/20/2024 6:35 AM USED CAR SALESPERSON [facility] Blood (Portacath) IVAD (Port) / Unknown 06/20/2024 5:48 AM USED CAR SALESPERSON 06/20/2024 5:55 AM USED CAR SALESPERSON Rl Elias MD LAB - BLOOD ORDER SYD Final Result [facility] [place] [facility] [address] [facility], [address] [phone] * (ABNORMAL) RBC and Platelet Morphology (06/19/2024 9:30 AM USED CAR SALESPERSON) [facility] RBC Morphology Confirmed RBC Indices 06/19/2024 11:43 AM USED CAR SALESPERSON [facility] Platelet Assessment Automated Count Confirmed. Giant platelets are present.(A) Automated Count Confirmed. Platelet morphology is normal. 06/19/2024 11:43 AM USED CAR SALESPERSON [facility] Giant Platelets Slight(A) None Seen 11:43 AM USED CAR SALESPERSON [facility] Elliptocytes None Seen None Seen 06/19/2024 11:43 AM USED CAR SALESPERSON [facility] Polychromasia Slight(A) None Seen 06/19/2024 11:43 AM USED CAR SALESPERSON [facility] RBC Fragments Slight(A) None Seen 06/19/2024 11:43 AM USED CAR SALESPERSON [facility] Reactive Lymphocytes Present(A) None Seen 06/19/2024 11:43 AM USED CAR SALESPERSON [facility] Sickle Cells Moderate(A) None Seen 06/19/2024 11:43 AM USED CAR SALESPERSON [facility] Smudge Cells Present(A) None Seen 06/19/2024 11:43 AM USED CAR SALESPERSON [facility] Target Cells Moderate(A) None Seen 06/19/2024 11:43 AM USED CAR SALESPERSON [facility] Blood CENTRAL VENOUS CATHETER / Unknown VAD(CVC, PICC) / Unknown 06/19/2024 9:30 AM USED CAR SALESPERSON 06/19/2024 9:42 AM USED CAR SALESPERSON Rl Elias MD LAB - BLOOD ORDER SYD Final Result [facility] [place] [facility] [address] [facility], [address] [place] [phone] * (ABNORMAL) CBC with platelets and differential (06/19/2024 9:30 AM USED CAR SALESPERSON) WBC Count 9.9 4.0 - 11.0 10e3/uL 06/19/2024 11:43 AM USED CAR SALESPERSON [facility] RBC Count 2.55(L) 3.80 - 5.20 10e6/uL 06/19/2024 11:43 AM USED CAR SALESPERSON [facility] Hemoglobin 8.1(L) 11.7 - 15.7 g/dL 06/19/2024 11:43 AM USED CAR SALESPERSON [facility] Hematocrit 24.0(L) 35.0 - 47.0 % 06/19/2024 11:43 AM USED CAR SALESPERSON [facility] MCV 94 78 - 100 fL 06/19/2024 11:43 AM USED CAR SALESPERSON [facility] MCH 31.8 26.5 - 33.0 pg 06/19/2024 11:43 AM USED CAR SALESPERSON [facility] MCHC 33.8 31.5 - 36.5 g/dL 06/19/2024 11:43 AM USED CAR SALESPERSON [facility] RDW 18.4(H) 10.0 - 15.0 % 06/19/2024 11:43 AM USED CAR SALESPERSON [facility] Platelet Count 471(H) 150 - 450 10e3/uL 06/19/2024 11:43 AM USED CAR SALESPERSON [facility] % Neutrophils 62 % 06/19/2024 11:43 AM USED CAR SALESPERSON [facility] % Lymphocytes 28 % 06/19/2024 11:43 AM USED CAR SALESPERSON [facility] % Monocytes 6 % 06/19/2024 11:43 AM USED CAR SALESPERSON [facility] % Eosinophils 3 % 06/19/2024 11:43 AM USED CAR SALESPERSON [facility] % Basophils 1 % 06/19/2024 11:43 AM USED CAR SALESPERSON [facility] % Immature Granulocytes 1 % 06/19/2024 11:43 AM USED CAR SALESPERSON [facility] NRBCs per 100 WBC 4(H) <1 /100 025 11:43 AM USED CAR SALESPERSON [facility] Absolute Neutrophils 6.1 1.6 - 8.3 10e3/uL 06/19/2024 11:43 AM USED CAR SALESPERSON [facility] Absolute Lymphocytes 2.7 0.8 - 5.3 10e3/uL 06/19/2024 11:43 AM USED CAR SALESPERSON [facility] Absolute Monocytes 0.6 0.0 - 1.3 10e3/uL 06/19/2024 11:43 AM USED CAR SALESPERSON [facility] Absolute Eosinophils 0.3 0.0 - 0.7 10e3/uL 06/19/2024 11:43 AM USED CAR SALESPERSON [facility] Absolute Basophils 0.1 0.0 - 0.2 10e3/uL 06/19/2024 11:43 AM USED CAR SALESPERSON [facility] Absolute Immature Granulocytes 0.1 <=0.4 10e3/uL 06/19/2024 11:43 AM USED CAR SALESPERSON [facility] Absolute NRBCs 0.4 10e3/uL 06/19/2024 11:43 AM USED CAR SALESPERSON [facility] Blood CENTRAL VENOUS CATHETER / Unknown VAD(CVC, PICC) / Unknown 06/19/2024 9:30 AM USED CAR SALESPERSON 06/19/2024 9:42 AM USED CAR SALESPERSON Rl Elias MD LAB - BLOOD ORDER SYD Final Result [facility] [place] [facility] [address] [facility], [address] [place] [phone] * (ABNORMAL) Reticulocyte count (06/19/2024 9:30 AM USED CAR SALESPERSON) [facility] % Reticulocyte 9.2(H) 0.5 - 2.0 % 06/19/2024 9:48 AM USED CAR SALESPERSON [facility] Absolute Reticulocyte 0.234(H) 0.025 - 0.095 10e6/uL 06/19/2024 9:48 AM USED CAR SALESPERSON [facility] Blood CENTRAL VENOUS CATHETER / Unknown VAD(CVC, PICC) / Unknown 06/19/2024 9:30 AM USED CAR SALESPERSON 06/19/2024 9:42 AM USED CAR SALESPERSON Rl Elias MD LAB - BLOOD ORDER SYD Final Result [facility] [place] [facility] [address] [facility], [address] [place] [phone] * (ABNORMAL) Comprehensive metabolic panel (06/19/2024 9:30 AM USED CAR SALESPERSON) Sodium 135 135 - 145 mmol/L 06/19/2024 10:13 AM USED CAR SALESPERSON [facility] Potassium 4.4 3.4 - 5.3 mmol/L 06/19/2024 10:13 AM USED CAR SALESPERSON [facility] Carbon Dioxide (CO2) 21(L) 22 - 29 mmol/L 06/19/2024 10:13 AM USED CAR SALESPERSON [facility] Anion Gap 9 7 - 15 mmol/L 06/19/2024 10:13 AM USED CAR SALESPERSON [facility] Urea Nitrogen 12.3 6.0 - 20.0 mg/dL 06/19/2024 10:13 AM USED CAR SALESPERSON [facility] Creatinine 0.68 0.51 - 0.95 mg/dL 06/19/2024 10:13 AM USED CAR SALESPERSON [facility] GFR Estimate >90 >60 mL/min/1.7 3m2 06/19/2024 10:13 AM USED CAR SALESPERSON [facility] Comment:eGFR calculated us2020 CKD-EPI equation. Calcium 8.9 8.8 - 10.4 mg/dL 06/19/2024 10:13 AM USED CAR SALESPERSON [facility] Chloride 105 98 - 107 mmol/L 06/19/2024 10:13 AM USED CAR SALESPERSON [facility] Glucose 100(H) 70 - 99 mg/dL 06/19/2024 10:13 AM USED CAR SALESPERSON [facility] Alkaline Phosphatase 94 40 - 150 U/L 06/19/2024 10:13 AM USED CAR SALESPERSON [facility] AST 54(H) 0 - 45 U/L 06/19/2024 10:13 AM USED CAR SALESPERSON [facility] ALT 31 0 - 50 U/L 06/19/2024 10:13 AM USED CAR SALESPERSON [facility] Protein Total 7.1 6.4 - 8.3 g/dL 06/19/2024 10:13 AM USED CAR SALESPERSON [facility] Albumin 3.9 3.5 - 5.2 g/dL 06/19/2024 10:13 AM USED CAR SALESPERSON [facility] Bilirubin Total 1.5(H) <=1.2 mg/dL 06/19/2024 10:13 AM USED CAR SALESPERSON [facility] Blood CENTRAL VENOUS CATHETER / Unknown VAD(CVC, PICC) / Unknown 06/19/2024 9:30 AM USED CAR SALESPERSON 06/19/2024 9:41 AM USED CAR SALESPERSON Rl Elias MD LAB - BLOOD ORDER SYD Final Result [facility] [place] [facility] [address] [facility], [address] * (ABNORMAL) Lactate Dehydrogenase (06/19/2024 9:30 AM USED CAR SALESPERSON) Lactate Dehydrogenase 507(H) 0 - 250 U/L 06/19/2024 10:13 AM USED CAR SALESPERSON [facility] Blood CENTRAL VENOUS CATHETER / Unknown VAD(CVC, PICC) / Unknown 06/19/2024 9:30 AM USED CAR SALESPERSON 06/19/2024 9:41 AM USED CAR SALESPERSON Rl Elias MD LAB - BLOOD ORDER SYD Final Result [facility] [place] [facility] [address] [facility], [address] * (ABNORMAL) Platelet count (06/19/2024 12:17 AM USED CAR SALESPERSON) Platelet Count 467(H) 150 - 450 10e3/uL 06/19/2024 12:44 AM USED CAR SALESPERSON [facility] Blood BLOOD SPECIMEN / Unknown Venipuncture / Unknown 06/19/2024 12:17 AM USED CAR SALESPERSON 06/19/2024 12:26 AM USED CAR SALESPERSON Laquita Kelley MD LAB - BLOOD ORDERABLES Final Re sult [facility] [place] [facility] [address] [facility], [address] * Creatinine (06/19/2024 12:17 AM USED CAR SALESPERSON) Creatinine 0.72 0.51 - 0.95 mg/dL 06/19/2024 12:51 AM USED CAR SALESPERSON [facility] GFR Estimate >90 >60 mL/min/1.7 3m2 06/19/2024 12:51 AM USED CAR SALESPERSON [facility] Comment:eGFR calculated usin 2020 CKD-EPI equation. Blood BLOOD SPECIMEN / Unknown Venipuncture / Unknown 06/19/2024 12:17 AM USED CAR SALESPERSON 06/19/2024 12:26 AM USED CAR SALESPERSON Laquita Kelley MD LAB - BLOOD ORDERABLES Final Re sult Performing Organization Address City/[facility]/ZIP Co de Phone Number [facility] [place] [facility] [address] [facility], [address] * (ABNORMAL) Manual Differential (06/18/2024 8:24 AM USED CAR SALESPERSON) % Neutrophils 52 % 06/18/2024 9:35 AM USED CAR SALESPERSON [facility] % Lymphocytes 39 % 06/18/2024 9:35 AM USED CAR SALESPERSON [facility] % Monocytes 7 % 06/18/2024 9:35 AM USED CAR SALESPERSON [facility] % Eosinophils 3 % 06/18/2024 9:35 AM USED CAR SALESPERSON [facility] % Basophils 0 % 06/18/2024 9:35 AM USED CAR SALESPERSON [facility] NRBCs per 100 WBC 13(H) <=0 % 06/18/2024 9:35 AM USED CAR SALESPERSON [facility] Absolute Neutrophils 5.6 1.6 - 8.3 10e3/uL 06/18/2024 9:35 AM USED CAR SALESPERSON [facility] Absolute Lymphocytes 4.2 0.8 - 5.3 10e3/uL 06/18/2024 9:35 AM USED CAR SALESPERSON [facility] Absolute Monocytes 0.7 0.0 - 1.3 10e3/uL 06/18/2024 9:35 AM USED CAR SALESPERSON [facility] Absolute Eosinophils 0.3 0.0 - 0.7 10e3/uL 06/18/2024 9:35 AM USED CAR SALESPERSON [facility] Absolute Basophils 0.0 0.0 - 0.2 10e3/uL 06/18/2024 9:35 AM USED CAR SALESPERSON [facility] Absolute NRBCs 1.4(H) <=0.0 10e3/uL 025 9:35 AM USED CAR SALESPERSON [facility] RBC Morphology Confirmed RBC Indices 06/18/2024 9:35 AM USED CAR SALESPERSON [facility] Platelet Assessment Automated Count Confirmed. Platelet morphology is normal. Automated Count Confirmed. Platelet morphology is normal. 06/18/2024 9:35 AM USED CAR SALESPERSON [facility] RBC Fragments Slight(A) None Seen 06/18/2024 9:35 AM USED CAR SALESPERSON [facility] Polychromasia Slight(A) None Seen 06/18/2024 9:35 AM USED CAR SALESPERSON [facility] Sickle Cells Moderate(A) None Seen 06/18/2024 9:35 AM USED CAR SALESPERSON [facility] Blood BLOOD SPECIMEN / Unknown Venipuncture / Unknown 06/18/2024 8:24 AM USED CAR SALESPERSON 06/18/2024 8:32 AM USED CAR SALESPERSON us Rl Elias MD LAB - BLOOD ORDER SYD Final Result [facility] [place] [facility] [address] [facility], [address] [place] [address], [facility] * (ABNORMAL) CBC with platelets and differential (06/18/2024 8:24 AM USED CAR SALESPERSON) WBC Count 10.8 4.0 - 11.0 10e3/uL 06/18/2024 9:24 AM USED CAR SALESPERSON [facility] RBC Count 2.51(L) 3.80 - 5.20 10e6/uL 06/18/2024 9:24 AM USED CAR SALESPERSON [facility] Hemoglobin 8.1(L) 11.7 - 15.7 g/dL 06/18/2024 9:24 AM USED CAR SALESPERSON [facility] Hematocrit 23.1(L) 35.0 - 47.0 % 06/18/2024 9:24 AM USED CAR SALESPERSON [facility] MCV 92 78 - 100 fL 06/18/2024 9:24 AM USED CAR SALESPERSON [facility] MCH 32.3 26.5 - 33.0 pg 06/18/2024 9:24 AM USED CAR SALESPERSON [facility] MCHC 35.1 31.5 - 36.5 g/dL 06/18/2024 9:24 AM USED CAR SALESPERSON [facility] RDW 18.7(H) 10.0 - 15.0 % 06/18/2024 9:24 AM USED CAR SALESPERSON [facility] Platelet Count 452(H) 150 - 450 10e3/uL 06/18/2024 9:24 AM USED CAR SALESPERSON [facility] Blood BLOOD SPECIMEN / Unknown Venipuncture / Unknown 06/18/2024 8:24 AM USED CAR SALESPERSON 06/18/2024 8:32 AM USED CAR SALESPERSON Rl Elias MD LAB - BLOOD ORDER SYD Final Result [facility] [place] [facility] [address] [facility], [address] [id number] [address] * (ABNORMAL) Reticulocyte count (06/18/2024 8:24 AM USED CAR SALESPERSON) [facility] % Reticulocyte 10.0(H) 0.5 - 2.0 % 06/18/2024 8:38 AM USED CAR SALESPERSON [facility] Absolute Reticulocyte 0.250(H) 0.025 - 0.095 10e6/uL 06/18/2024 8:38 AM USED CAR SALESPERSON [facility] Blood BLOOD SPECIMEN / Unknown Venipuncture / Unknown 06/18/2024 8:24 AM USED CAR SALESPERSON 06/18/2024 8:32 AM USED CAR SALESPERSON Rl Elias MD LAB - BLOOD ORDER SYD Final Result [facility] [place] [facility] [address] [facility], [address] [place], [place] [id number] * (ABNORMAL) Comprehensive metabolic panel (06/18/2024 8:24 AM USED CAR SALESPERSON) Sodium 133(L) 135 - 145 mmol/L 06/18/2024 9:02 AM USED CAR SALESPERSON [facility] Potassium 4.3 3.4 - 5.3 mmol/L 06/18/2024 9:02 AM USED CAR SALESPERSON [facility] Carbon Dioxide (CO2) 21(L) 22 - 29 mmol/L 06/18/2024 9:02 AM USED CAR SALESPERSON [facility] Anion Gap 7 7 - 15 mmol/L 06/18/2024 9:02 AM USED CAR SALESPERSON [facility] Urea Nitrogen 9.2 6.0 - 20.0 mg/dL 06/18/2024 9:02 AM USED CAR SALESPERSON [facility] Creatinine 0.65 0.51 - 0.95 mg/dL 06/18/2024 9:02 AM USED CAR SALESPERSON [facility] GFR Estimate >90 >60 mL/min/1.7 3m2 06/18/2024 9:02 AM USED CAR SALESPERSON [facility] Comment:eGFR calculated us2020 CKD-EPI equation. Calcium 8.7(L) 8.8 - 10.4 mg/dL 06/18/2024 9:02 AM USED CAR SALESPERSON [facility] Chloride 105 98 - 107 mmol/L 06/18/2024 9:02 AM USED CAR SALESPERSON [facility] Glucose 92 70 - 99 mg/dL 06/18/2024 9:02 AM USED CAR SALESPERSON [facility] Alkaline Phosphatase 86 40 - 150 U/L 06/18/2024 9:02 AM USED CAR SALESPERSON [facility] AST 45 0 - 45 U/L 06/18/2024 9:02 AM USED CAR SALESPERSON [facility] ALT 27 0 - 50 U/L 06/18/2024 9:02 AM USED [facility] Protein Total 7.0 6.4 - 8.3 g/dL 06/18/2024 9:02 AM USED [employer] [facility] Albumin 3.9 3.5 - 5.2 g/dL 06/18/2024 9:02 AM USED [facility] Bilirubin Total 1.4(H) <=1.2 mg/dL 06/18/2024 9:02 AM USED [facility] Blood BLOOD SPECIMEN / Unknown Venipuncture / Unknown 06/18/2024 8:24 AM USED CAR SALESPERSON 06/18/2024 8:32 AM USED CAR SALESPERSON us Rl Elias MD LAB - BLOOD ORDER SYD Final Result LABORATORY [facility] [address] [facility], [address] [id number] * (ABNORMAL) Lactate Dehydrogenase (06/18/2024 8:24 AM USED CAR SALESPERSON) Lactate Dehydrogenase 491(H) 0 - 250 U/L 06/18/2024 9:02 AM USED [employer] [facility] Blood BLOOD SPECIMEN / Unknown Venipuncture / Unknown 06/18/2024 8:24 AM USED CAR SALESPERSON 06/18/2024 8:32 AM USED CAR SALESPERSON Rl Elias MD LAB - BLOOD ORDER SYD Final Result Performing Organization Address City/[facility] Co de Phone Number LABORATORY [facility] [address] [facility], [address] [phone] * Transfuse red blood cells (unit), Sickle Cell (Hgb S) Negative (06/17/2024 2:33 PM USED CAR SALESPERSON) us Drake Nina MD BLOOD TRANSFUSION ORDERABLES Final Result * Transfuse red blood cells (unit), 1 Units, Sickle Cell (Hgb S) Negative (06/17/2024 2:33 PM USED CAR SALESPERSON) us Drake Nina MD BLOOD TRANSFUSION ORDERABLES Final Result * (ABNORMAL) UA with Microscopic reflex to Culture (06/17/2024 1:11 PM USED CAR SALESPERSON) Color Urine Light Yellow Colorless, Straw, Light Yellow, Yellow 06/17/2024 1:48 PM USED [employer] [facility] Appearance Urine Clear Clear 06/17/19 25 1:48 PM USED [employer] [facility] Glucose Urine Negative Negative mg/dL 06/17/2024 1:48 PM USED [employer] [facility] Bilirubin Urine Negative Negative 5 1:48 PM USED [employer] [facility] Ketones Urine Negative Negative mg/dL 06/17/2024 1:48 PM USED [employer] [facility] Specific [place] Urine 1.009 1.003 - 1.035 06/17/2024 1:48 PM USED [employer] [facility] Blood Urine Trace(A) Negative 06/17/2024 1:48 PM USED [employer] [facility] pH Urine 6.5 5.0 - 7.0 06/17/2024 1:48 PM USED [employer] [facility] Protein Albumin Urine Negative Negative mg/dL 06/17/2024 1:48 PM USED [employer] [facility] Urobilinogen Urine Normal Normal, 2.0 mg/dL 06/17/2024 1:48 PM USED CAR SALESPERSON [facility] Nitrite Urine Negative Negative 06/17/2024 1:48 PM USED CAR SALESPERSON [facility] Leukocyte Esterase Urine Small(A) Negative 06/17/2024 1:48 PM USED CAR SALESPERSON [facility] RBC Urine <1 <=2 /HPF 06/17/2024 1:48 PM USED CAR SALESPERSON [facility] WBC Urine <1 <=5 /HPF 06/17/2024 1:48 PM USED CAR SALESPERSON [facility] Squamous Epithelials Urine 3(H) <=1 /HPF 06/17/2024 1:48 PM USED CAR SALESPERSON [facility] Urine URINE SPECIMEN OBTAINED BY CLEAN CATCH PROCEDURE / Unknown Non-blood Collection / Unknown 06/17/2024 1:11 PM USED CAR SALESPERSON 06/17/2024 1:38 PM USED CAR SALESPERSON Narrative [facility] - 06/17/2024 1:48 PM USED CAR SALESPERSON Urine Culture not indicated Rl Elias MD LAB - URINE ORDER SYD Final Result [facility] [place] [facility] [address] [facility], [address] [place] [phone] * Prepare red blood cells (unit) (06/17/2024 9:12 AM USED CAR SALESPERSON) Blood Component Type Red Blood Cells [facility] Product Code [id number] [facility] Unit Status Transfused [facility] Unit Number [id number] UU B LOOD BANK CROSSMATCH COMPATIBLE [facility]U BLOOD B[facility] CODING SYSTEM [id number] UU BLO OD BANK ISSUE DATE AND TIME [id number] [facility] BLOOD BANK UNIT ABO/RH A+ [facility]U BLOOD BANK UNIT TYPE ISBT 6200 U[facility] BL OOD BANK 06/17/2024 9:12 AM USED CAR SALESPERSON us Drake Nina MD BLOOD BANK PRODUCT ORDERABLES Final Result BLOOD BANK [address] [place] [phone] * (ABNORMAL) Transferrin (06/17/2024 6:16 AM USED CAR SALESPERSON) Transferrin 100.0(L) 200.0 - 360.0 mg/dL 06/17/2024 9:36 AM USED CAR SALESPERSON [facility] Blood VENOUS LINE / Unknown IVAD (Port) / Unknown 06/17/2024 6:16 AM USED CAR SALESPERSON 06/17/2024 6:27 AM USED CAR SALESPERSON us Drake Nina MD LAB - BLOOD ORDERABLES Final Result U LABORATORY [facility] [place] [facility] [address] [facility], [address] [place], [place] [phone] * Iron and iron binding capacity (06/17/2024 6:16 AM USED CAR SALESPERSON) Iron 123 37 - 145 ug/dL 06/17/2024 10:02 AM USED CAR SALESPERSON [facility] Iron Binding Capacity 06/17/2024 10:02 AM USED CAR SALESPERSON [facility] Comment:Unable to calculate: UIBC or Iron value is outside detectable level. Iron Sat Index 06/17/2024 10:02 AM USED CAR SALESPERSON [facility] Comment:Unable to calculate: UIBC or Iron value is outside detectable level. Blood VENOUS LINE / Unknown IVAD (Port) / Unknown 06/17/2024 6:16 AM USED CAR SALESPERSON 06/17/2024 6:27 AM USED CAR SALESPERSON us Drake Nina MD LAB - BLOOD ORDERABLES Final Result [facility] [place] [facility] [address] [facility], [address] [place] [phone] * (ABNORMAL) CBC with platelets (06/17/2024 6:16 AM USED CAR SALESPERSON) Pathologist [facility] WBC Count 14.6(H) 4.0 - 11.0 10e3/uL 06/17/2024 6:38 AM USED CAR SALESPERSON [facility] RBC Count 1.97(L) 3.80 - 5.20 10e6/uL 06/17/2024 6:38 AM USED CAR SALESPERSON [facility] Hemoglobin 6.3(LL) 11.7 - 15.7 g/dL 06/17/2024 6:38 AM USED CAR SALESPERSON [facility] Hematocrit 17.9(L) 35.0 - 47.0 % 06/17/2024 6:38 AM USED CAR SALESPERSON [facility] MCV 91 78 - 100 fL 06/17/2024 6:38 AM USED CAR SALESPERSON [facility] MCH 32.0 26.5 - 33.0 pg 06/17/2024 6:38 AM USED CAR SALESPERSON [facility] MCHC 35.2 31.5 - 36.5 g/dL 06/17/2024 6:38 AM USED CAR SALESPERSON [facility] RDW 20.1(H) 10.0 - 15.0 % 06/17/2024 6:38 AM USED CAR SALESPERSON [facility] Platelet Count 468(H) 150 - 450 10e3/uL 06/17/2024 6:38 AM USED CAR SALESPERSON [facility] Blood VENOUS LINE / Unknown IVAD (Port) / Unknown 06/17/2024 6:16 AM USED CAR SALESPERSON 06/17/2024 6:27 AM USED CAR SALESPERSON us Laquita Kelley MD LAB - BLOOD ORDERABLES Final Re sult [facility] [place] [facility] [address] [facility], [address] [place] [phone] * (ABNORMAL) Basic metabolic panel (06/17/2024 6:16 AM USED CAR SALESPERSON) Pathologist [facility] Sodium 134(L) 135 - 145 mmol/L 06/17/2024 6:55 AM USED CAR SALESPERSON [facility] Potassium 4.6 3.4 - 5.3 mmol/L 06/17/2024 6:55 AM USED CAR SALESPERSON [facility] Chloride 105 98 - 107 mmol/L 06/17/2024 6:55 AM USED CAR SALESPERSON [facility] Carbon Dioxide (CO2) 20(L) 22 - 29 mmol/L 06/17/2024 6:55 AM USED CAR SALESPERSON [facility] Anion Gap 9 7 - 15 mmol/L 06/17/2024 6:55 AM USED CAR SALESPERSON [facility] Urea Nitrogen 16.1 6.0 - 20.0 mg/dL 06/17/2024 6:55 AM USED CAR SALESPERSON [facility] Creatinine 0.90 0.51 - 0.95 mg/dL 06/17/2024 6:55 AM USED CAR SALESPERSON [facility] GFR Estimate 88 >60 mL/min/1.7 3m2 06/17/2024 6:55 AM USED CAR SALESPERSON [facility] Comment:eGFR calculated usin 2020 CKD-EPI equation. Calcium 8.4(L) 8.8 - 10.4 mg/dL 06/17/2024 6:55 AM USED CAR SALESPERSON [facility] Glucose 95 70 - 99 mg/dL 06/17/2024 6:55 AM USED CAR SALESPERSON [facility] Blood VENOUS LINE / Unknown IVAD (Port) / Unknown 06/17/2024 6:16 AM USED CAR SALESPERSON 06/17/2024 6:27 AM USED CAR SALESPERSON us Laquita Kelley MD LAB - BLOOD ORDERABLES Final Re sult [facility] [place] [facility] [address] [facility], [address] [place] [phone] * Troponin T, High Sensitivity (06/16/2024 9:33 PM USED CAR SALESPERSON) Troponin T, High Sensitivity 8 <=14 ng/L 06/16/2024 10:13 PM USED CAR SALESPERSON [facility] Comment: Either a High Sensitivity [...] follow-up, or urgent outpatient provocative testing. Blood VENOUS LINE / Unknown IVAD (Port) / Unknown 06/16/2024 9:33 PM USED CAR SALESPERSON 06/16/2024 9:44 PM USED CAR SALESPERSON us Varghesegiulia Schofield MD LAB - BLOOD ORDERABLE S Final Result LABORATORY [facility] [address] [facility], [address] [phone] * Chest XR, PA & LAT (06/16/2024 6:09 PM USED CAR SALESPERSON) Anatomical Region Laterality Modality Chest Digital Radiogra phy 06/16/2024 6:09 PM USED CAR SALESPERSON Impressions 06/16/2024 6:13 PM USED CAR SALESPERSON IMPRESSION: Left chest port catheter in stable position. Stable position of right central venous catheter. No airspace opacity, pleural effusion or pneumothorax. Narrative 06/16/2024 6:13 PM USED CAR SALESPERSON EXAM: XR CHEST 2 VIEWS LOCATION: [facility] DATE: 06/16/2024 INDICATION: chest pain COMPARISON: 06/12/2024 Procedure Note Richar Haines MD - 06/16/2024 EXAM: XR CHEST 2 VIEWS LOCATION: [facility] DATE: 06/16/2024 INDICATION: chest pain COMPARISON: 06/12/2024 IMPRESSION: Left chest port catheter in stable position. Stable positionof right central venous catheter. No airspace opacity, pleural effusion orpneumothorax. us Abimael Schofield MD IMG DIAGNOSTIC IMAGIN G ORDERABLES Final Result * RBC and Platelet Morphology (06/16/2024 5:37 PM USED CAR SALESPERSON) Pathologist [facility] RBC Morphology Confirmed RBC Indices 06/16/2024 7:40 PM USED CAR SALESPERSON [facility] Platelet Assessment Automated Count Confirmed. Platelet morphology is normal. Automated Count Confirmed. Platelet morphology is normal. 06/16/2024 7:40 PM USED CAR SALESPERSON [facility] Blood BLOOD SPECIMEN / Unknown Venipuncture / Unknown 06/16/2024 5:37 PM USED CAR SALESPERSON 06/16/2024 5:46 PM USED CAR SALESPERSON [facility] - BLOOD ORDERABLE S Final Result U LABORATORY [facility] [place] [facility] [address] [facility], [address] [place] [address], [facility] * Adult Type and Screen (06/16/2024 5:37 PM USED CAR SALESPERSON) [facility] ABO/RH(D) A POS 06/16/2024 5:08 PM USED CAR SALESPERSON BLOOD BANK Antibody Screen Negative Negative 06/16/2024 5:08 PM USED CAR SALESPERSON BLOOD BANK Comment:Current antibody scr een is negative. Patient has a history of antibody(ies). A delay in compatible red blood cells may occur. SPECIMEN EXPIRATION DATE [id number] 06/16/2024 5:08 PM USED CAR SALESPERSON BLOOD BANK Blood BLOOD SPECIMEN / Unknown Venipuncture / Unknown 06/16/2024 5:37 PM USED CAR SALESPERSON 06/16/2024 5:46 PM USED CAR SALESPERSON Abimael Schofield MD LAB - BLOOD BANK TEST ORDER Final Result [facility] BLOOD BANK [address] [place] [phone] * (ABNORMAL) CBC with platelets and differential (06/16/2024 5:37 PM USED CAR SALESPERSON) [facility] WBC Count 21.0(H) 4.0 - 11.0 10e3/uL 06/16/2024 7:41 PM USED CAR SALESPERSON [facility] RBC Count 2.34(L) 3.80 - 5.20 10e6/uL 06/16/2024 7:41 PM USED CAR SALESPERSON [facility] Hemoglobin 7.4(L) 11.7 - 15.7 g/dL 06/16/2024 7:41 PM USED CAR SALESPERSON [facility] Hematocrit 21.7(L) 35.0 - 47.0 % 06/16/2024 7:41 PM USED CAR SALESPERSON [facility] MCV 93 78 - 100 fL 06/16/2024 7:41 PM USED CAR SALESPERSON [facility] MCH 31.6 26.5 - 33.0 pg 06/16/2024 7:41 PM USED CAR SALESPERSON [facility] MCHC 34.1 31.5 - 36.5 g/dL 06/16/2024 7:41 PM USED CAR SALESPERSON [facility] RDW 19.3(H) 10.0 - 15.0 % 06/16/2024 7:41 PM USED CAR SALESPERSON [facility] Platelet Count 551(H) 150 - 450 10e3/uL 06/16/2024 7:41 PM USED CAR SALESPERSON [facility] % Neutrophils 69 % 06/16/2024 7:41 PM USED CAR SALESPERSON [facility] % Lymphocytes 20 % 06/16/2024 7:41 PM USED CAR SALESPERSON [facility] % Monocytes 9 % 06/16/2024 7:41 PM USED CAR SALESPERSON [facility] % Eosinophils 0 % 06/16/2024 7:41 PM USED CAR SALESPERSON [facility] % Basophils 1 % 06/16/2024 7:41 PM USED CAR SALESPERSON [facility] % Immature Granulocytes 1 % 06/16/2024 7:41 PM USED CAR SALESPERSON [facility] NRBCs per 100 WBC 1(H) <1 /100 025 7:41 PM USED CAR SALESPERSON [facility] Absolute Neutrophils 14.5(H) 1.6 - 8.3 10e3/uL 06/16/2024 7:41 PM USED CAR SALESPERSON [facility] Absolute Lymphocytes 4.2 0.8 - 5.3 10e3/uL 06/16/2024 7:41 PM USED CAR SALESPERSON [facility] Absolute Monocytes 2.0(H) 0.0 - 1.3 10e3/uL 06/16/2024 7:41 PM USED CAR SALESPERSON [facility] Absolute Eosinophils 0.0 0.0 - 0.7 10e3/uL 06/16/2024 7:41 PM USED CAR SALESPERSON [facility] Absolute Basophils 0.2 0.0 - 0.2 10e3/uL 06/16/2024 7:41 PM USED CAR SALESPERSON [facility] Absolute Immature Granulocytes 0.1 <=0.4 10e3/uL 06/16/2024 7:41 PM USED CAR SALESPERSON [facility] Absolute NRBCs 0.3 10e3/uL 06/16/2024 7:41 PM USED CAR SALESPERSON [facility] Blood BLOOD SPECIMEN / Unknown Venipuncture / Unknown 06/16/2024 5:37 PM USED CAR SALESPERSON 06/16/2024 5:46 PM USED CAR SALESPERSON us Varghesegiulia Schofield MD LAB - BLOOD ORDERABLE S Final Result [facility] [place] [facility] [address] [facility], [address] * (ABNORMAL) Prolactin (06/16/2024 5:37 PM USED CAR SALESPERSON) Prolactin 55(H) 5 - 23 ng/mL 06/16/2024 6:24 PM USED CAR SALESPERSON [facility] Blood BLOOD SPECIMEN / Unknown Venipuncture / Unknown 06/16/2024 5:37 PM USED CAR SALESPERSON 06/16/2024 5:46 PM USED CAR SALESPERSON us Varghesegiulia Schofield MD LAB - BLOOD ORDERABLE S Final Result Performing Organization Address City/[facility]/ZIP Co de Phone Number [facility] [address] [facility], [address] * Blood Culture Peripheral Blood (06/16/2024 5:37 PM USED CAR SALESPERSON) Culture No Growth 06/21/2024 6:47 PM USED CAR SALESPERSON [facility] Blood BLOOD SPECIMEN / Unknown Venipuncture / Unknown 06/16/2024 5:37 PM USED CAR SALESPERSON 06/16/2024 5:47 PM USED CAR SALESPERSON us Abimael Schofield MD LAB - MICRO GENERAL O RDERABLES Final Result [facility] Inf. Diseases Diag. Lab [address] [facility], [address] [place] [phone] * Troponin T, High Sensitivity (06/16/2024 5:37 PM USED CAR SALESPERSON) [facility] Troponin T, High Sensitivity 6 <=14 ng/L 06/16/2024 6:24 PM USED CAR SALESPERSON [facility] Comment: Either a High Sensitivity [...] BLOOD SPECIMEN / Unknown Venipuncture / Unknown 06/16/2024 5:37 PM USED CAR SALESPERSON 06/16/2024 5:46 PM USED CAR SALESPERSON us Varghesegiulia Schofield MD LAB - BLOOD ORDERABLE S Final Result [facility] [place] [facility] [address] [facility], [address] [place] [phone] * (ABNORMAL) Comprehensive metabolic panel (06/16/2024 5:37 PM USED CAR SALESPERSON) [facility] Sodium 135 135 - 145 mmol/L 06/16/2024 6:24 PM USED CAR SALESPERSON [facility] Potassium 4.2 3.4 - 5.3 mmol/L 06/16/2024 6:24 PM USED CAR SALESPERSON [facility] Carbon Dioxide (CO2) 18(L) 22 - 29 mmol/L 06/16/2024 6:24 PM USED CAR SALESPERSON [facility] Anion Gap 14 7 - 15 mmol/L 06/16/2024 6:24 PM USED CAR SALESPERSON [facility] Urea Nitrogen 17.3 6.0 - 20.0 mg/dL 06/16/2024 6:24 PM USED CAR SALESPERSON [facility] Creatinine 0.92 0.51 - 0.95 mg/dL 06/16/2024 6:24 PM USED CAR SALESPERSON [facility] GFR Estimate 85 >60 mL/min/1.7 3m2 06/16/2024 6:24 PM USED CAR SALESPERSON [facility] Comment:eGFR calculated us2020 CKD-EPI equation. Calcium 9.5 8.8 - 10.4 mg/dL 06/16/2024 6:24 PM USED CAR SALESPERSON [facility] Chloride 103 98 - 107 mmol/L 06/16/2024 6:24 PM USED CAR SALESPERSON [facility] Glucose 122(H) 70 - 99 mg/dL 06/16/2024 6:24 PM USED CAR SALESPERSON [facility] Alkaline Phosphatase 105 40 - 150 U/L 06/16/2024 6:24 PM USED CAR SALESPERSON [facility] AST 49(H) 0 - 45 U/L 06/16/2024 6:24 PM USED CAR SALESPERSON [facility] ALT 32 0 - 50 U/L 06/16/2024 6:24 PM USED CAR SALESPERSON [facility] Protein Total 8.6(H) 6.4 - 8.3 g/dL 06/16/2024 6:24 PM USED CAR SALESPERSON [facility] Albumin 4.6 3.5 - 5.2 g/dL 06/16/2024 6:24 PM USED CAR SALESPERSON [facility] Bilirubin Total 2.0(H) <=1.2 mg/dL 06/16/2024 6:24 PM USED CAR SALESPERSON [facility] Blood BLOOD SPECIMEN / Unknown Venipuncture / Unknown 06/16/2024 5:37 PM USED CAR SALESPERSON 06/16/2024 5:46 PM USED CAR SALESPERSON us Varghesegiulia Schofield MD LAB - BLOOD ORDERABLE S Final Result [facility] [place] [facility] [address] [facility], [address] [place] [phone] * EKG 12 lead (06/16/2024 4:55 PM USED CAR SALESPERSON) Systolic Blood Pressure mmHg RADIOLOGY RESULTS Diastolic Blood Pressure mmHg RADIOLOGY RESULTS Ventricular Rate 122 BPM RAD IOLOGY RESULTS Atrial Rate 122 BPM RADIOLOG Y RESULTS [place] Interval 128 ms RADIOLOG Y RESULTS QRS Duration 74 ms RADIOLO GY RESULTS QT 314 ms RADIOLOGY RESULTS QTc 447 ms RADIOLOGY RESULTS P [place] 63 degrees RADIOLOGY RESULTS R AXIS 83 degrees RADIOLOGY RESULTS T [place] 29 degrees RADIOLOGY RESULTS Interpretation ECG Sinus tachycardia Otherwise normal ECG Unconfirmed report - interpretation of this ECG is computer generated - see medical record for final interpretation Confirmed by - EMERGENCY ROOM, PHYSICIAN ([id number]), publication editor KARLA WILLIAMSON ([id number]) on 06/17/2024 6:56:59 AM RADIOLOGY RESULTS 06/16/2024 4:55 PM USED CAR SALESPERSON 06/17/2024 6:56 AM USED CAR SALESPERSON us Varghesegiulia Schofield MD ECG ORDERABLES Edite d Result - Final RADIOLOGY RESULTS documented in this encounter Visit Diagnoses Diagnosis 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 documented in this encounter Admitting Diagnoses Diagnosis 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 documented in this encounter Administered Medications Inactive Administered Medications - up to 3 most recent administrations Medication Order MAR Action Action Date Dose Rate Site cefpodoxime (VANTIN) tablet 200 mg SULEMA, 200 mg, Oral, 2 TIMES DAILY, First dose on 06/17/24 at 1230, For 2 days, Indications: pneumoniaIndications:pneumonia $Given 06/18/2024 8:40 PM USED CAR SALESPERSON 200 mg $Given 06/18/2024 12:05 PM USED CAR SALESPERSON 200 mg $Given 06/17/2024 9:25 PM USED CAR SALESPERSON 200 mg diclofenac (VOLTAREN) 1 % topical gel 2 g 2 g, Topical, 4 TIMES DAILY, First dose on 06/17/24 at 1400, Apply to areas of pain. Use supplied dosing card to measure dose. diphenhydrAMINE (BENADRYL) capsule 25 mg 25 mg, Oral, EVERY 6 HOURS PRN, itching, Starting on Wed06/16/24 at 6 $Given 06/19/2024 12:46 PM USED CAR SALESPERSON 25 mg diphenhydrAMINE (BENADRYL) injection 25 mg 25 mg, Intravenous, EVERY 6 HOURS PRN, itching, Starting on Wed06/16/24 at 6 $Given 06/20/2024 8:36 AM USED CAR SALESPERSON 25 mg $Given 06/20/2024 2:08 AM USED CAR SALESPERSON 25 mg $Given 06/19/2024 8:21 PM USED CAR SALESPERSON 25 mg enoxaparin ANTICOAGULANT (LOVENOX) injection 40 mg 40 mg, Subcutaneous, EVERY 24 HOURS, First dose on Wed06/16/24 at 2100, Contact provider if platelet count drops by 50% or more after enoxaparin initiation OR if platelet count falls below 50 x 10e3/uL $Given 06/19/2024 8:29 PM USED CAR SALESPERSON 40 mg $Given 06/18/2024 8:01 PM USED CAR SALESPERSON 40 mg $Given 06/17/2024 9:32 PM USED CAR SALESPERSON 40 mg FLUoxetine (PROzac) capsule 10 mg 10 mg, Oral, DAILY, First dose on Wed06/17/24 at 0800 $Given 06/20/2024 7:54 AM USED CAR SALESPERSON 10 mg $Given 06/19/2024 8:54 AM USED CAR SALESPERSON 10 mg $Given 06/18/2024 9:54 AM USED CAR SALESPERSON 10 mg folic acid (FOLVITE) tablet 1 mg 1 mg, Oral, DAILY, First dose on Wed06/17/24 at 0800 $Given 06/20/2024 7:51 AM USED CAR SALESPERSON 1 mg $Given 06/19/2024 8:54 AM USED CAR SALESPERSON 1 mg $Given 06/18/2024 8:09 AM USED CAR SALESPERSON 1 mg heparin lock flush 10 unit/mL injection 5-10 mL 5-10 mL, Intracatheter, EVERY 1 HOUR PRN, post meds or blood draw, other, to lock each port in dual implanted port, Starting on Wed06/20/24 at 1011, Flush each port lumen with the sodium chloride 0.9% flush followed by the heparin flush. MAX dose: 5 mL of heparin for each lumen heparin lock flush 10 unit/mL injection 5-10 mL 5-10 mL, Intracatheter, EVERY 24 HOURS, First dose on Wed06/20/24 at 1030, To lock each dormant port in dual [...] Intracatheter, EVERY 28 DAYS, First dose on Wed06/20/24 at 1030, To de-access each port in dual implanted port. Flush with 10 mL NS sodium chloride 0.9% flush followed by 5 mL heparin (100 units/mL) at discharge and at least every 28 days. MAX: 5 mL per each port lumen $Given 06/20/2024 10:55 AM USED CAR SALESPERSON 5 mLs hydromorphone (DILAUDID) injection 2 mg 2 mg, Intravenous, EVERY 1 HOUR PRN, moderate pain, Starting on Wed06/16/24 at 1708, For 3 doses $Given 06/16/2024 8:20 PM USED CAR SALESPERSON 2 mg $Given 06/16/2024 5:42 PM USED CAR SALESPERSON 2 mg hydromorphone (DILAUDID) injection 2 mg 2 mg, Intravenous, EVERY 3 HOURS, First dose on Wed06/16/24 at 2100, May use concomitant with non-opioid analgesics. $Given 06/16/2024 9:59 PM USED CAR SALESPERSON 2 mg hydromorphone (DILAUDID) injection 2 mg 2 mg, Intravenous, EVERY 2 HOURS, First dose (after last modification) on 06/17/24 at 0000, May use concomitant with non-opioid analgesics. $Given 06/20/2024 9:53 AM USED CAR SALESPERSON 2 mg $Given 06/20/2024 7:49 AM USED CAR SALESPERSON 2 mg $Given 06/20/2024 5:51 AM USED CAR SALESPERSON 2 mg hydroxyurea (HYDREA) capsule 1,000 mg 1,000 mg, Oral, 2 TIMES DAILY, First dose on Wed06/16/24 at 2100, Indications: Sickle cell anemia, Do not crush May require hepatic and/or renal dose or frequency adjustments. See reference link for guidelines.Indications:Sickle cell anemia $Given 06/20/2024 7:51 AM USED CAR SALESPERSON 1,000 mg $Given 06/19/2024 8:13 PM USED CAR SALESPERSON 1,000 mg $Given 06/19/2024 8:55 AM USED CAR SALESPERSON 1,000 mg lactated ringers infusion at 75 mL/hr, Intravenous, CONTINUOUS, Starting on Wed06/18/24 at 0845, Until Wed06/20/24 at 0815 Rate/Dose Verify 06/20/2024 8:00 AM USED CAR SALESPERSON 75 mL/hr $New Bag 06/19/2024 10:38 PM USED CAR SALESPERSON 75 mL/hr Rate/Dose Verify 06/19/2024 8:29 PM USED CAR SALESPERSON 75 mL/h r Lidocaine (LIDOCARE) 4 % Patch 1 patch 1 patch, Transdermal, Administer over 12 Hours, EVERY 24 HOURS 0800, First dose on 06/17/24 at 1135, Apply patch(s) to area of pain. To [...] electric blankets, or other equipment. melatonin tablet 3 mg 3 mg, Oral, AT BEDTIME PRN, sleep, Starting on 06/17/24 at 1337 muscle rub (ARTHRITIS HOT) pain relief cream Topical, EVERY 6 HOURS PRN, other, pain, Starting on 06/17/24 at 1131, Apply to areas of pain ondansetron (ZOFRAN) injection 4 mg 4 mg, Intravenous, EVERY 6 HOURS PRN, nausea, vomiting, Administer over 2-5 Minutes, Starting on 06/16/24 at 1958 $Given 06/20/2024 2:08 AM USED CAR SALESPERSON 4 mg $Given 06/19/2024 8:15 PM USED CAR SALESPERSON 4 mg $Given 06/19/2024 12:46 PM USED CAR SALESPERSON 4 mg polyethylene glycol (MIRALAX) Packet 17 g 17 g, Oral, DAILY PRN, constipation, Starting on Wed06/18/24 at 0830, IF more than 1 constipation PRN medication is ordered, administer step-barriga as indicated, moving to the next step ONLY if prior step ineffective. Step 1: senna-docusate (SENOKOT-S; PERICOLACE) OR bisacodyl (DULCOLAX) EC tablet Step 2: polyethylene glycol (MIRALAX/GLYCOLAX) Step 3: bisacodyl (DULCOLAX) suppository Step 4: enema Hold for loose stools. 1 Packet = 17 grams. Mix each gram with at least 1/2 ounce (15 mL) of water - 8 ounces for 17 g dose, 4 ounces for 8.5 g dose, 2 ounces for 4 g dose. Follow with the same volume of water. Hold for loose stools unless being administered as part of a bowel prep regimen or bowel clean out. senna-docusate (SENOKOT-S/PERICOLACE) 8.6-50 MG per tablet 1 tablet 1 tablet, Oral, 2 TIMES DAILY PRN, constipation, Starting on Wed06/16/24 at 2057, If no bowel movement in 24 hours, [...] 2 TIMES DAILY PRN, constipation, Starting on Wed06/16/24 at 2057, IF more than 1 constipation PRN medication [...] of the CVC Implanted port, Starting on Wed06/20/24 at 1011, 10 mL per port lumen post IV meds; 20 mL per port lumen post post blood draw. sodium chloride (PF) 0.9% PF flush 10-20 mL 10-20 mL, Intracatheter, EVERY 1 HOUR PRN, other, to de-access port when not in use, Starting on Wed06/20/24 at 1011, Use sodium chloride 0.9% at least daily to de-access each port and lock dormant implanted port while not in use. Flush each port access with 10 mL sodium chloride 0.9% MAX: 10 mL per each port lumen sodium chloride (PF) 0.9% PF flush 10-20 mL 10-20 mL, Intracatheter, EVERY 28 DAYS, First dose on Wed06/20/24 at 1030, To flush and lock each port in dual implanted port. Flush each port with 10 mL sodium chloride 0.9% followed by either heparin or anticoagulant citrate as ordered. Max: 10 mL per each port lumen. $Given 06/20/2024 10:54 AM USED CAR SALESPERSON 10 mLs sodium chloride (PF) 0.9% PF flush 3 mL 3 mL, Intracatheter, EVERY 8 HOURS, First dose on Wed06/16/24 at 1710, to lock peripheral IV dormant line $Given 06/20/2024 12:24 AM USED CAR SALESPERSON 3 mLs $Given 06/18/2024 6:22 PM USED CAR SALESPERSON 3 mLs $Given 06/17/2024 7:34 AM USED CAR SALESPERSON 3 mLs sodium chloride (PF) 0.9% PF flush 3 mL 3 mL, Intracatheter, EVERY 1 MIN PRN, line flush, other, to ensure patency or to lock dormant line, Starting on Wed06/16/24 at 1706 sodium chloride (PF) 0.9% PF flush 3 mL 3 mL, Intracatheter, EVERY 8 HOURS, First dose on Wed06/16/24 at 2100, to lock peripheral IV dormant line $Given 06/20/2024 4:41 AM USED CAR SALESPERSON 3 mLs $Given 06/19/2024 12:56 PM USED CAR SALESPERSON 3 mLs $Given 06/18/2024 12:07 PM USED [employer] 3 mLs sodium chloride (PF) 0.9% PF flush 3 mL 3 mL, Intracatheter, EVERY 1 MIN PRN, line flush, other, to ensure patency or to lock dormant line, Starting on Wed06/16/24 at 2058 $Given 06/20/2024 5:5 2 AM USED [employer] 3 mLs $Given 06/20/2024 2:59 AM USED CAR [employer] 3 mLs $Given 06/20/2024 2:07 AM USED CAR [employer] 3 mLs sodium chloride 0.9 % infusion at 75 mL/hr, Intravenous, CONTINUOUS, Starting on Wed06/16/24 at 1710, Until 06/18/24 at 0843 Rate/Dose Verify 06/18/2024 8:07 AM USED CAR SALESPERSON 75 mL/hr $New Bag 06/17/2024 9:42 PM USED CAR SALESPERSON 75 mL/hr $New Bag 06/17/2024 4:05 PM USED CAR SALESPERSON 75 mL/hr sodium chloride 0.9% BOLUS 500 mL Intravenous, 500 mL, ONCE, at 500 mL/hr, Administer over 1 Hours, On Wed06/16/24 at 1710, For 1 dose $New Bag 06/16/2024 5:51 PM USED CAR SALESPERSON 500 mLs 500 mL/hr documented in this encounter Active and Recently Administered Medications Times are shown in USED CAR SALESPERSON. Scheduled Medication Order 06/18/2024 06/19/2024 06/20/2024 cefpodoxime (VANTIN) tablet 200 mg (COMPLETED) SULEMA, 200 mg, Oral, 2 TIMES DAILY, First dose on 06/17/24 at 1230, For 2 days, Indications: pneumonia 1205 ($Given - Provider: Tejal Curry RN)2039 ($Given - Provider: Amelia Gannon RN) diclofenac (VOLTAREN) 1 % topical gel 2 g 2 g, Topical, 4 TIMES DAILY, First dose on 06/17/24 at 1400, Apply to areas of pain. Use supplied dosing card to measure dose. 0830 (Not Given - Provider: Tejal Curry RN - Reason: Patient/family refused)1208 (Not Given - Provider: Tejal Curry RN - Reason: Patient/family refused)1613 (Not Given - Provider: Tejal Curry RN - Reason: Patient/family refused)1945 (Not Given - Provider: Amelia Gannon RN - Reason: Patient/family refused) 0844 (Not Given - Provider: Anitha Cervantes RN - Reason: Patient/family refused)1153 (Not Given - Provider: Kiki Caal RN - Reason: Patient/family refused)1516 (Not Given - Provider: Kiki Caal RN - Reason: Patient/family refused)2030 (Not Given - Provider: Sarai Shrestha RN - Reason: Patient/family refused) 0755 (Not Given - Provider: Divya Reyes RN - Reason: Patient/family refused)1200 (Canceled Entry - Provider: Orders Generic Provider - Comment: Automatically canceled at discontinue of medication order) enoxaparin ANTICOAGULANT (LOVENOX) injection 40 mg 40 mg, Subcutaneous, EVERY 24 HOURS, First dose on Wed06/16/24 at 2100, Contact provider if platelet count drops by 50% or more after enoxaparin initiation OR if platelet count falls below 50 x 10e3/uL 2000 ($Given - Provider: Amelia Gannon, RN) 2028 ($Given - Provider: Sarai Shrestha, SOFIA) FLUoxetine (PROzac) capsule 10 mg 10 mg, Oral, DAILY, First dose on Wed06/17/24 at 0800 0954 ($Given - Provider: Tejal Curry RN) 0854 ($Given - Provider: Anitha Cervantes, SOFIA) 0754 ($Given - Provider: Divya Reyes, SOFIA) folic acid (FOLVITE) tablet 1 mg 1 mg, Oral, DAILY, First dose on Wed06/17/24 at 0800 0809 ($Given - Provider: Tejal Curry RN) 0854 ($Given - Provider: Anitha Cervantes, SOFIA) 0751 ($Given - Provider: Divya Reyes RN) heparin lock flush 10 unit/mL injection 5-10 mL 5-10 mL, Intracatheter, EVERY 24 HOURS, First dose on Wed06/20/24 at 1030, To lock each dormant port in dual implanted port. MAX: 5 mL of heparin for each lumen Check PRN heparin flush order to see when the last dose of the PRN heparin was given before administering this heparin dose. Flush with sodium chloride 0.9% followed by the heparin flush. 1030 (Canceled Entry - Provider: Orders Generic Provider - Comment: Automatically canceled at discontinue of medication order) heparin lock flush 100 unit/mL injection 5-10 mL 5-10 mL, Intracatheter, EVERY 28 DAYS, First dose on Wed06/20/24 at 1030, To de-access each port in dual implanted port. Flush with 10 mL NS sodium chloride 0.9% flush followed by 5 mL heparin (100 units/mL) at discharge and at least every 28 days. MAX: 5 mL per each port lumen 1055 ($Given - Provider: Divya Reyes, SOFIA) hydromorphone (DILAUDID) injection 2 mg 2 mg, Intravenous, EVERY 2 HOURS, First dose (after last modification) on 06/17/24 at 0000, May use concomitant with non-opioid analgesics. 0011 ($Given - Provider: Zaynab Veliz RN)0204 ($Given - Provider: Zaynab Veliz RN)0409 ($Given - Provider: Amelia Gannon RN)0559 ($Given - Provider: Amelia Gannon RN)0809 ($Given - Provider: Tejal Curry RN)1009 ($Given - Provider: Tejal Curry RN)1207 ($Given - Provider: Tejal Curry RN)1412 ($Given - Provider: Tejal Curry RN)1618 ($Given - Provider: Tejal Curry RN)1821 ($Given - Provider: Tejal Curry RN)1957 ($Given - Provider: Amelia Gannon RN)2201 ($Given - Provider: Amelia Gannon RN)2359 ($Given - Provider: Amelia Gannon RN) 0153 ($Given - Provider: Amelia Gannon RN)0350 ($Given - Provider: Amelia Gannon RN)0552 ($Given - Provider: Amelia Gannon RN)0851 ($Given - Provider: Anitha Cervantes RN)1036 ($Given - Provider: Kiki Caal, SOFIA)1248 ($Given - Provider: Kiki Caal, RN)1427 ($Given - Provider: Kiki Caal, RN)1643 ($Given - Provider: Andrea Salnias RN)1830 ($Given - Provider: Kiki Caal, SOFIA)2025 ($Given - Provider: Sarai Shrestha, RN)2223 ($Given - Provider: Sarai Shrestha, RN) 0024 ($Given - Provider: Rene Morocho RN)0259 ($Given - Provider: Rene J Lill, RN)0441 ($Given - Provider: Rene Morocho RN)0551 ($Given - Provider: Rene Morocho RN)0749 ($Given - Provider: Divya Reyes RN)0953 ($Given - Provider: Divya Reyes RN)1200 (Canceled Entry - Provider: Orders Generic Provider - Comment: Automatically canceled at discontinue of medication order) hydroxyurea (HYDREA) capsule 1,000 mg 1,000 mg, Oral, 2 TIMES DAILY, First dose on Wed06/16/24 at 2100, Indications: Sickle cell anemia, Do not crush May require hepatic and/or renal dose or frequency adjustments. See reference link for guidelines. 0954 ($Given - Provider: Tejal Curry RN)1956 ($Given - Provider: Amelia Gannon RN) 0855 ($Given - Provider: Anitha Cervantes, SOFIA)2012 ($Given - Provider: Sarai Shrestha RN) 0751 ($Given - Provider: Divya Reyes RN) Lidocaine (LIDOCARE) 4 % Patch 1 patch 1 patch, Transdermal, Administer over 12 Hours, EVERY 24 HOURS 0800, First dose on Wed06/17/24 at 1135, Apply patch(s) to area of pain. To [...] heating pads, electric blankets, or other equipment. 0829 (Not Given - Provider: Tejal Curry RN - Reason: Patient/family refused) 0845 (Not Given - Provider: Anitha Cervantes RN - Reason: Patient/family refused) 0755 (Not Given - Provider: Divya Reyes RN - Reason: Patient/family refused) sodium chloride (PF) 0.9% PF flush 10-20 mL 10-20 mL, Intracatheter, EVERY 28 DAYS, First dose on Wed06/20/24 at 1030, To flush and lock each port in dual implanted port. Flush each port with 10 mL sodium chloride 0.9% followed by either heparin or anticoagulant citrate as ordered. Max: 10 mL per each port lumen. 1054 ($Given - Provider: Divya Reyes RN) sodium chloride (PF) 0.9% PF flush 3 mL 3 mL, Intracatheter, EVERY 8 HOURS, First dose on Wed06/16/24 at 1710, to lock peripheral IV dormant line 0023 (Not Given - Provider: Zaynab Veliz RN - Reason: IV Infusing)0829 (Not Given - Provider: Tejal Curry RN - Reason: IV Infusing)1822 ($Given - Provider: Tejal Curry RN) 0110 (Not Given - Provider: Amelia Gannon RN - Reason: IV Infusing)0845 (Not Given - Provider: Anitha Cervantes RN - Reason: IV Infusing)1759 (Not Given - Provider: Kiki Caal RN - Reason: IV Infusing) 0024 ($Given - Provider: Rene Morocho RN)1000 (Canceled Entry - Provider: Divya Reyes RN) sodium chloride (PF) 0.9% PF flush 3 mL 3 mL, Intracatheter, EVERY 8 HOURS, First dose on Wed06/16/24 at 2100, to lock peripheral IV dormant line 0508 (Not Given - Provider: Amelia Ganonn RN - Reason: IV Infusing)1207 ($Given - Provider: Tejal Curry RN)2100 (Not Given - Provider: Amelia Gannon RN - Reason: IV Infusing) 0403 (Not Given - Provider: Amelia Gannon RN - Reason: IV Infusing)1256 ($Given - Provider: Kiki Caal, SOFIA)2030 (Not Given - Provider: Sarai Shrestha RN - Reason: IV Infusing) 0441 ($Given - Provider: Rene Morocho RN)1300 (Canceled Entry - Provider: Orders Generic Provider - Comment: Automatically canceled at discontinue of medication order) Continuous Medication Order 06/18/2024 06/19/2024 06/20/2024 lactated ringers infusion (CANCELED) at 75 mL/hr, Intravenous, CONTINUOUS, Starting on 06/18/24 at 0845, Until Wed06/20/24 at 0815 0949 ($New Bag - Provider: Tejal Curry RN)1158 (Rate/Dose Verify - Provider: Tejal Curry RN)1412 (Rate/Dose Verify - Provider: Tejal Curry RN)1613 (Rate/Dose Verify - Provider: Tejal Curry RN)1821 (Rate/Dose Verify - Provider: Tejal Curry RN)2211 ($New Bag - Provider: Amelia Gannon RN) 1036 (Rate/Dose Verify - Provider: Kiki Caal, SOFIA)1256 (Rate/Dose Verify - Provider: Kiki Caal RN)2029 (Rate/Dose Verify - Provider: Sarai Shrestha RN)2238 ($New Bag - Provider: Sarai Shrestha RN) 0800 (Rate/Dose Verify - Provider: Divya Reyes RN)0900 (Infusion stopped per MD order - Provider: Divya Reyes RN) sodium chloride 0.9 % infusion (CANCELED) at 75 mL/hr, Intravenous, CONTINUOUS, Starting on Wed06/16/24 at 1710, Until Wed06/18/24 at 0843 0807 (Rate/Dose Verify - Provider: Tejal Curry RN)0929 (Stopped - Provider: Tejal Curry RN - Comment: order dc) PRN Medication Order 06/18/2024 06/19/2024 06/20/2024 calcium carbonate (TUMS) chewable tablet 1,000 mg 1,000 mg, Oral, 4 TIMES DAILY PRN, heartburn, Starting on Wed06/16/24 at 2058 diphenhydrAMINE (BENADRYL) capsule 25 mg(Linked Group 1) 25 mg, Oral, EVERY 6 HOURS PRN, itching, Starting on Wed06/16/24 at 1956 0010 (See Alternative - Provider: Zaynab Veliz RN)0559 (See Alternative - Provider: Amelia Gannon RN)1205 (See Alternative - Provider: Tejal Curry RN)1821 (See Alternative - Provider: Tejal Curry RN)2359 (See Alternative - Provider: Amelia Gannon RN) 0551 (See Alternative - Provider: Amelia Gannon RN)1246 ($Given - Provider: Kiki Caal RN)2020 (See Alternative - Provider: Sarai Shrestha RN) 0208 (See Alternative - Provider: Rene Morocho, SOFIA)0836 (See Alternative - Provider: Divya Reyes RN) diphenhydrAMINE (BENADRYL) injection 25 mg(Linked Group 1) 25 mg, Intravenous, EVERY 6 HOURS PRN, itching, Starting on Wed06/16/24 at 1956 0010 ($Given - Provider: Zaynab Veliz RN)0559 ($Given - Provider: Amelia Gannon RN)1205 ($Given - Provider: Tejal Curry RN)1821 ($Given - Provider: Tejal Curry RN)2359 ($Given - Provider: Amelia Gannon RN) 0551 ($Given - Provider: Amelia Gannon RN)1246 (See Alternative - Provider: Kiki Caal RN)2020 ($Given - Provider: Sarai Shrestha RN) 0208 ($Given - Provider: Rene Morocho RN)0836 ($Given - Provider: Divya Reyes RN) heparin lock flush 10 unit/mL injection 5-10 mL 5-10 mL, Intracatheter, EVERY 1 HOUR PRN, post meds or blood draw, other, to lock each port in dual implanted port, Starting on Wed06/20/24 at 1011, Flush each port lumen with the sodium chloride 0.9% flush followed by the heparin flush. MAX dose: 5 mL of heparin for each lumen hydromorphone (DILAUDID) injection 2 mg 2 mg, Intravenous, EVERY 1 HOUR PRN, moderate pain, Starting on Wed06/16/24 at 1708, For 3 doses 0615 (Canceled Entry - Provider: Rene Morocho RN - Comment: typewriter operator automatic used scheudled dose instead of PRN dose for pts sudden onset of 10/10 pain) lidocaine (LMX4) cream Topical, EVERY 1 HOUR PRN, pain, with VAD insertion, Starting on Wed06/16/24 at 2058, Apply at least 30 minutes prior to VAD insertion in divided doses as needed for size of site for insertion. MAX Dose: 2.5 g ( of 5 g tube) Do NOT give if patient has a history of allergy to any local anesthetic or any horacio product. Do NOT use both lidocaine intradermal/subcutaneo us injection and the lidocaine cream on the same site. lidocaine 1 % 0.1-1 mL 0.1-1 mL, Other, EVERY 1 HOUR PRN, mild pain with VAD insertion, Starting on Wed06/16/24 at 2058, MAX dose 1 mL subcutaneous OR intradermal along the side of the vein in divided doses as needed for VAD insertion. Do NOT give if patient has a history of allergy to any local anesthetic or any horacio product. Do NOT use both lidocaine intradermal/subcutaneo us injection and the lidocaine cream on the same site. melatonin tablet 3 mg 3 mg, Oral, AT BEDTIME PRN, sleep, Starting on 06/17/24 at 1337 muscle rub (ARTHRITIS HOT) pain relief cream Topical, EVERY 6 HOURS PRN, other, pain, Starting on 06/17/24 at 1131, Apply to areas of pain ondansetron (ZOFRAN) injection 4 mg 4 mg, Intravenous, EVERY 6 HOURS PRN, nausea, vomiting, Administer over 2-5 Minutes, Starting on Wed06/16/24 at 1958 0010 ($Given - Provider: Zaynab Veliz RN)0600 ($Given - Provider: Amelia Gannon RN)1822 ($Given - Provider: Tejal Curry RN)2359 ($Given - Provider: Amelia Gannon RN) 0552 ($Given - Provider: Amelia Gannon, RN)1246 ($Given - Provider: Kiki Caal, SOFIA)2015 ($Given - Provider: Sarai Shrestha RN) 0208 ($Given - Provider: Rene Morocho RN) polyethylene glycol (MIRALAX) Packet 17 g 17 g, Oral, DAILY PRN, constipation, Starting on Wed06/18/24 at 0830, IF more than 1 constipation PRN medication is ordered, administer step-barriga as indicated, moving to the next step ONLY if prior step ineffective. Step 1: senna-docusate (SENOKOT-S; PERICOLACE) OR bisacodyl (DULCOLAX) EC tablet Step 2: polyethylene glycol (MIRALAX/GLYCOLAX) Step 3: bisacodyl (DULCOLAX) suppository Step 4: enema Hold for loose stools. 1 Packet = 17 grams. Mix each gram with at least 1/2 ounce (15 mL) of water - 8 ounces for 17 g dose, 4 ounces for 8.5 g dose, 2 ounces for 4 g dose. Follow with the same volume of water. Hold for loose stools unless being administered as part of a bowel prep regimen or bowel clean out. senna-docusate (SENOKOT-S/PERICOLACE) 8.6-50 MG per tablet 1 tablet(Linked Group 2) 1 tablet, Oral, 2 TIMES DAILY PRN, constipation, Starting on Wed06/16/24 at 2057, If no bowel movement in 24 hours, [...] 8.6-50 MG per tablet 2 tablet(Linked Group 2) 2 tablet, Oral, 2 TIMES DAILY PRN, constipation, Starting on Wed06/16/24 at 2057, IF more than 1 constipation PRN medication [...] of the CVC Implanted port, Starting on Wed06/20/24 at 1011, 10 mL per port lumen post IV meds; 20 mL per port lumen post post blood draw. sodium chloride (PF) 0.9% PF flush 10-20 mL 10-20 mL, Intracatheter, EVERY 1 HOUR PRN, other, to de-access port when not in use, Starting on Wed06/20/24 at 1011, Use sodium chloride 0.9% at least daily [...] or to lock dormant line, Starting on Wed06/16/24 at 1706 sodium chloride (PF) 0.9% PF flush 3 mL 3 mL, Intracatheter, EVERY 1 MIN PRN, line flush, other, to ensure patency or to lock dormant line, Starting on Wed06/16/24 at 2057 0207 ($Given - Provider: Rene Morocho RN)0259 ($Given - Provider: Rene Morocho RN)0552 ($Given - Provider: Rene Morocho RN) Linked Groups Order Group 1: diphenhydrAMINE (BENADRYL) capsule 25 mgJump to med 25 mg, Oral, EVERY 6 HOURS PRN, itching, Starting on Wed06/16/24 at 195 Or diphenhydrAMINE (BENADRYL) injection 25 mgJump to med 25 mg, Intravenous, EVERY 6 HOURS PRN, itching, Starting on Wed06/16/24 at 195 Group 2: senna-docusate (SENOKOT-S/PERICOLACE) 8.6-50 MG per tablet 1 tabletJump to med 1 tablet, Oral, 2 TIMES DAILY PRN, constipation, Starting on Wed06/16/24 at 205, If no bowel movement in 24 hours, [...] 2 TIMES DAILY PRN, constipation, Starting on Wed06/16/24 at 2058, IF more than 1 constipation PRN medication is ordered, administer step-barriga as indicated, moving to the next step ONLY if prior step ineffective. Step 1: senna-docusate (SENOKOT-S; PERICOLACE) OR bisacodyl (DULCOLAX) EC tablet Step 2: polyethylene glycol (MIRALAX/GLYCOLAX) Step 3: bisacodyl (DULCOLAX) suppository Step 4: enema Hold for loose stools. documented in this encounter Care Teams Dental Hygienist Relationship Specialty Start Date End Date No Ref-Primary, Physician PCP - General 03/15/24 06/17/24 Veronica Joseph MD [address] [place] [address] PCP - General Family Medicine 06/18/24 Mor Ramsey Medical Student 04/03/24 Case Samuel MD [address] [place] [address] [address] [place] [address] Assigned Pediatric Specialist Provider 05/18/24 Juhi Benson, RN Specialty [facility] Hematology & Oncology 05/29/24 documented as of this encounter
--- OUTSIDE RECORDS SUMMARY | 2024-06-21 22:17 | XMS_ITS | Encounter Summary ---
Author Organization [facility] Address [address] [place] [address]. 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
--- OUTSIDE RECORDS SUMMARY | 2024-06-21 22:17 | XMS_ITS | Encounter Summary ---
Author Organization [facility] Address [address] [place] [id number] Care Team Providers Care Author Agent Name Role Phone No Ref-Primary, Physician Primary Care Provider Mor Ramsey Unavailable Unavailable Case Samuel MD Unavailable [phone] Juhi Benson RN Unavailable Unavailable Reason for Visit * Reason Comments Sickle Cell Pain Crisis Encounter Details Date Type Department Care Team (Late st Contact Info) Description 06/06/2024 9:41 AM PULL TAB DEALER - 06/06/2024 1:29 PM [facility] Emergency [facility] Emergency Room Count includes the [facility] [place] [address] Marilia Summers MD [address] [place] [id number] Sickle cell pain crisis (H) Discharge Disposition: [...] in an abandoned building, in an overnight fci, or couch-surfing.) Yes 04/09/2024 Are you worried [...] on file Legal Sex Female 8:25 AM PULL TAB DEALER Gender Identity Not on file Sexual Orientation Not on file documented as of this encounter Last Filed Vital Signs Vital Sign Reading Time Taken Comments Blood Pressure 122/82 06/06/2024 1:00 PM PULL TAB DEALER Pulse 77 06/06/2024 1:00 PM PULL TAB DEALER Temperature 36.9 C (98.5 F) 06/06/2024 9:33 AM PULL TAB DEALER Respiratory Rate 17 06/06/2024 9:33 AM PULL TAB DEALER Oxygen Saturation 98% 06/06/2024 1:00 PM PULL TAB DEALER Inhaled Oxygen Concentration - - Weight 52.2 kg (115 lb) 06/06/2024 9:33 AM PULL TAB DEALER Height 154.9 cm (5' 1) 06/06/2024 9:33 AM PULL TAB DEALER Body Mass Index 21.73 06/06/2024 9:33 AM PULL TAB DEALER documented in this encounter Discharge Instructions * Discharge Instructions* Marilia Summers MD - 06/06/2024 12:48 PM PULL TAB DEALER With the amount of hydromorphone that you take at home and what is given here you are at risk of having an overdose that can the deadly. You should make your family members and those you live with aware of what the signs are for an opiate overdose and I have included that information here. They should watch a video on how to give you naloxone spray if needed and I did send that prescription to you r pharmacy so that you can have it on hand if needed. I spoke with our physician who will work on your care plan with your director of instruction to see if they would be agreeable to getting you an appointment with pain clinic even while you are waiting to start the plasmapheresis to work a bit more on a home pain regimen for you. Continue to follow your care plan discussed with your director of instruction to treat your sickle cell pain crisis. Your next dose of dilaudid should not be before 2:30 pm. TAB DEALER TAB DEALER * Attachments The following attachments cannot be sent through Care Everywhere. * Naloxone Nasal Douglas (NALOXONE SPRAY - NASAL) ([place]) * Drug Overdose: Opioid ([place]) documented in this encounter Medications at Time of Discharge FLUoxetine (PROZAC) 10 MG capsuleIndication s:Severe episode of recurrent major depressive disorder, without psychotic features (H) Take 1 capsule (10 mg) by mouth daily. 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 30 tablet 05/01/2024 naloxone (NARCAN) 4 MG/0.1ML nasal spray Douglas 1 spray (4 mg) into one nostril alternating nostrils as needed for opioid reversal (for opiate overdose if not breathing and unconscious. have your family member watch video on how to use/read information sheet). 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 40 tablet 06/07/2024 documented as of this encounter ED Notes * Marilia Ness RN - 06/06/2024 9:36 AM CST Pt reports she is in a sickle cell crisis. She states she was discharged yesterday and since then has not been able to manage her pain with her at home meds. Was not able to get into the infusion today. Triage Assessment (Adult) Row Name 06/06/24 0936 Triage Assessment Airway WDL WDL Respiratory WDL Respiratory WDL WDL Skin Circulation/Temperature WDL Skin Circulation/Temperature WDL WDL Cardiac WDL Cardiac WDL WDL Peripheral/Neurovascular WDL Peripheral Neurovascular WDL WDL Cognitive/Neuro/Behavioral WDL Cognitive/Neuro/Behavioral WDL WDL TAB DEALER * Marilia Summers MD - 06/06/2024 9:34 AM CST Emergency Department Encounter Evaluation Date & Time: No admission date for patient encounter. CHIEF COMPLAINT: Sickle Cell Pain Crisis Triage Note: FINAL IMPRESSION: ICD-10-CM 1. Sickle cell pain crisis (H) D57.00 Impression and Plan ED COURSE & MEDICAL DECISION MAKIN:55 AM Met with patient for initial interview and exam. 12:45 PM Rechecked and updated patient. ED Course as of 06/06/24 1330 Tue Jun 06, 2024 1040 Care plan reviewed and felt appropriate for her care today so was implemented with fluids, oral Benadryl if needed which she does typically need for itching and/or anxiety and the Dilaudid. 1042 So, the patient has care plan. She has been struggling with her sickle cell crisis pain since arriving here in December without any significant changes in her blood work. I did review her bloodwork last done on May 31. There is no new symptom with this today and her vital signs remained stable without hypoxia so as discussed with hematology there is no indication for repeat blood work t tre and or repeat imaging. She does struggle with chest pain as part of her sickle crisis. Care plan is reviewed. She is planning to start plasmapheresis but would like to discuss getting her seen by pain clinic so that they can start some longer acting pain management for her at home. Sending outthis request to our physician who is working with her director of instruction for the care plan. Per the patient they were waiting till after she starts plasmapheresis but from an emergency medicine standpoint there is really no reason to wait for this to start her seeing pain management specifically as they can adjust her pain control as she does plasmapheresis with hematology oncology. She is quite interested in this as well because the home doses of oral hydromorphone do not seem to be working at all. 1246 Misti has been feeling sequentially better. She did not appear in any distress during the course of her ER stay. She asked for her last dose of Dilaudid but does feel ready to discharge and hasalready contacted her significant other who is in route to pick her up. I did message our physicianwho works with care plans and they will talk with her director of instruction about the request for the patient to be seen by pain clinic now to start working on home pain control regimens a bit more with a longer acting pain medication. 1257 Also I do not see in her home medication list that she has naloxone available to her so I did give her information on that and a prescription for it to have available to her and her family members at home if she shows signs of opiate overdose. 1321 Unfortunately we do now have a major issue. Our unit secretary Hattie and our it security project manager Augusto just saw the patient to get into the xm1 tank driver seat and drive away after being told specifically that she cannot drive and that she had told us that her significant other was driving in to pick herup. 1328 Our security did have her on video (as manager international concerned she did not get into a vehicle when left our triage area and instead was walking out towards the parking lot after getting dilaudid here), and I was able to review that video and identify her face in the camera in her car in the driversseat driving away,unfortunately. At the conclusion of the encounter I discussed the results of all the tests and the disposition. The questions were answered. The patient or family acknowledged understanding and was agreeable with the care plan. 0 minutes of critical care time MEDICATIONS GIVEN IN THE EMERGENCY DEPARTMENT: Medications sodium chloride (PF) 0.9% PF flush 10-20 mL (has no administration in time range) sodium chloride (PF) 0.9% PF flush 10-20 mL (has no administration in time range) sodium chloride (PF) 0.9% PF flush 10-20 mL (has no administration in time range) heparin lock flush 10 unit/mL injection 5-10 mL (has no administration in time range) heparin lock flush 10 unit/mL injection 5-10 mL (has no administration in time range) heparin lock flush 100 unit/mL injection 5-10 mL (5 mLs Intracatheter $Given 06/06/24 1313) lactated ringers BOLUS 1,000 mL (0 mLs Intravenous Stopped 06/06/24 1253) HYDROmorphone (DILAUDID) injection 2 mg (2 mg Intravenous $Given 06/06/24 1131) diphenhydrAMINE (BENADRYL) capsule 50 mg (50 mg Oral $Given 06/06/24 1022) HYDROmorphone (DILAUDID) injection 2 mg (2 mg Intravenous $Given 06/06/24 1257) NEW PRESCRIPTIONS STARTED AT TODAY'S ED VISIT: New Prescriptions NALOXONE (NARCAN) 4 MG/0.1ML NASAL SPRAY Douglas 1 spray (4 mg) into one nostril alternating nostrilsas needed for opioid reversal (for opiate overdose if not breathing and unconscious. have your family member watch video on how to use/read information sheet). 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 The patient was seen and discharged from here yesterday and has not been able to manage her pain with her at home medications since then. She states that she did take her pain medication the Dilaudid as prescribed at 3 AM this morning but despite that still has not been able to get any rest due to ongoing discomfort. She did feel a bit better yesterday afternoon after being in the emergency department but then worsened again. She complains of generalized discomfort all over her body but not specifically in her chest today. She did try to call the infusion center because of this but was unable to get into the infusion today. The patient has been seen multiple times in this department and is well known. She just had ports placed with the plan to do plasmapheresis, that is not scheduled to start until the last week in May. Her left sided port is the one that she is to use for general IV infusions and the right sidedport will be just during the plasmapheresis process. No new fever or cough or cold, no new shortness of breath. She does have a history of recurrent chest pain as part of her sickle crisis and this has been evaluated multiple times since in [place] and although she has a remote history of PE she has not been found to have any recurrent PE on repeated imaging here. Plan with hematology oncology is to try to limit blood draws and radiation for now because of the stability of her current lab work and findings and the need to try to limit any bloodtransfusions. If a blood transfusion is felt necessary they do request to please discuss with hematology oncology before doing that because of risk of harm to her. REVIEW OF SYSTEMS: Review of Systems remainder of systems are all otherwise negative. 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) Pulmonary embolism (H) 11/2022 Retinopathy, vascular Stroke (H) Past Surgical History: Procedure Laterality Date ARTHROPLASTY KNEE Left details unclear IR CHEST PORT PLACEMENT > 5 YRS OF AGE 105/25/2024 IR CHEST PORT PLACEMENT > 5 YRS OF AGE 105/25/2024 TONSILLECTOMY & ADENOIDECTOMY Bilateral Family History Problem Relation Age of Onset Sickle Cell Trait Daughter Social History Tobacco Use Smoking status: Never Smokeless tobacco: Never Substance Use Topics Alcohol use: Not Currently Drug use: Never naloxone (NARCAN) 4 MG/0.1ML nasal spray FLUoxetine (PROZAC) 10 MG capsule folic acid (FOLVITE) 1 MG tablet HYDROmorphone (DILAUDID) 2 MG tablet hydroxyurea (HYDREA) 500 MG capsule multivitamin, therapeutic (THERA-VIT) TABS tablet Physical Exam First Vitals: Patient Vitals for the past 24 hrs: BP Temp Temp src Pulse Resp SpO2 Height Weight 06/06/24 1300 122/82 -- -- 77 -- 98 % -- -- 06/06/24 1245 111/57 -- -- 74 -- 97 % -- -- 06/06/24 1230 118/57 -- -- 73 -- 99 % -- -- 06/06/24 1215 113/61 -- -- 71 -- 98 % -- -- 06/06/24 1200 123/68 -- -- 78 -- 98 % -- -- 06/06/24 1145 130/77 -- -- 76 -- 93 % -- -- 06/06/24 1130 125/81 -- -- 75 -- 96 % -- -- 06/06/24 1115 -- -- -- 70 -- 98 % -- -- 06/06/24 1100 117/74 -- -- 69 -- 100 % -- -- 06/06/24 1045 122/71 -- -- 69 -- 100 % -- -- 06/06/24 1030 124/68 -- -- 71 -- 95 % -- -- 06/06/24 1015 120/74 -- -- 94 -- 96 % -- -- 06/06/24 0933 105/56 98.5 ??F (36.9 ??C) Temporal 83 17 100 % 1.549 m (5' 1) 52.2 kg (115 lb) PHYSICAL EXAM: Constitutional: in nad sitting up in bed but is very slightly tearful when talkng about not sleeping at all last night. HENT: Normocephalic, posterior pharynx wnl, mucous membranes moist and moderately pink Eyes: PERRL, EOMI, Conjunctiva normal, No discharge, no scleral icterus. Respiratory: Breathing easily, cta Cardiovascular: rrr nl s1s2 0 murmurs, rubs, or gallops. Peripheral pulses dp, pt, and radial are wnl. no peripheral edema GI: Bowel sounds normal, Soft, No tenderness, Musculoskeletal: Moves all extremities. No erythematous or swollen major joints, Integument: slightly pale but with pink nailbeds Neurologic: Alert & oriented x 3, Normal motor function, Normal sensory function, No focal deficits noted. Normal speech. Psychiatric: Affect normal, Judgment normal, Mood normal. Results LAB AND RADIOLOGY: All pertinent labs reviewed and interpreted No results found for any visits on 06/06/24. I did review her blood work. Last blood draw was done on May 31, 2024 and had not been significantly changing. On that draw her hemoglobin was a bit higher than previous suspect she was slightly dehydrated. [facility] Documentation Medical Decision Making Obtained supplemental history:Supplemental history obtained?: No Reviewed external records: External records reviewed?: Documented in chart Care impacted by chronic illness:Other: sickle cell disease Did you consider but not order tests?: Work up considered but not performed and documented in chart, if applicable Did you interpret images independently?: Independent interpretation of ECG and images noted in documentation, when applicable. Consultation discussion with other provider:Did you involve another provider (x ray consultant, , pharmacy, etc.)?: No Discharge.continue current meds The creation of this record is based on the scribe???s observations of the work being performed by Alex Ashby and the provider???s statements to them. This document has been checked and approved byMD Marilia Martinez MD Emergency Medicine [facility] EM[facility] Marilia Summers MD 06/06/24 1254 Marilia Summers MD 06/06/24 1257 Marilia Summers MD 06/06/24 1330 TAB DEALER TAB DEALER TAB DEALER documented in this encounter Plan of Treatment Not on file documented as of this encounter Goals Goal Patient Goal Type Associated Problems Recent Progress Patient-Stated? Author Pain Management General On track( 025 12:40 PM PULL TAB DEALER) Yes Juhi Benson, SOFIA Note: Goal Statement: [...] as of this encounter Visit Diagnoses Diagnosis 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 documented in this encounter Administered Medications Inactive Administered Medications - up to 3 most recent administrations Medication Order MAR Action Action Date Dose Rate Site diphenhydrAMINE (BENADRYL) capsule 50 mg 50 mg, Oral, ONCE PRN, itching, anxiety, Starting on Wed06/06/24 at 0958, For 1 dose $Given 06/06/2024 10:22 AM PULL TAB DEALER 50 mg heparin lock flush 10 unit/mL injection 5-10 mL 5-10 mL, Intracatheter, EVERY 1 HOUR PRN, post meds or blood draw, other, to lock each port in dual implanted port, Starting on Wed06/06/24 at 0955, Flush each port lumen with the sodium chloride 0.9% flush followed by the heparin flush. MAX dose: 5 mL of heparin for each lumen heparin lock flush 10 unit/mL injection 5-10 mL 5-10 mL, Intracatheter, EVERY 24 HOURS, First dose on Wed06/06/24 at 1000, To lock each dormant port in dual [...] Intracatheter, EVERY 28 DAYS, First dose on Wed06/06/24 at 1000, To de-access each port in dual implanted port. Flush with 10 mL NS sodium chloride 0.9% flush followed by 5 mL heparin (100 units/mL) at discharge and at least every 28 days. MAX: 5 mL per each port lumen $Given 06/06/2024 1:13 PM PULL TAB DEALER 5 mLs HYDROmorphone (DILAUDID) injection 2 mg 2 mg, Intravenous, EVERY 1 HOUR PRN, moderate pain, Starting on Wed06/06/24 at 0958, For 2 doses $Given 06/06/2024 11:31 AM PULL TAB DEALER 2 mg $Given 06/06/2024 10:22 AM PULL TAB DEALER 1 mg HYDROmorphone (DILAUDID) injection 2 mg 2 mg, Intravenous, ONCE, On Wed06/06/24 at 1300, For 1 dose $Given 06/06/2024 12:57 PM PULL TAB DEALER 2 mg lactated ringers BOLUS 1,000 mL Intravenous, 1,000 mL, ONCE, On Wed06/06/24 at 1000, For 1 dose $New Bag 06/06/2024 10:12 AM PULL TAB DEALER 1,000 mLs sodium chloride (PF) 0.9% PF flush 10-20 mL 10-20 mL, Intracatheter, EVERY 1 MIN PRN, line flush, post meds or blood draw, to flush each lumen of the CVC Implanted port, Starting on Wed06/06/24 at 0955, 10 mL per port lumen post IV meds; 20 mL per port lumen post post blood draw. sodium chloride (PF) 0.9% PF flush 10-20 mL 10-20 mL, Intracatheter, EVERY 1 HOUR PRN, other, to de-access port when not in use, Starting on Wed06/06/24 at 0955, Use sodium chloride 0.9% at least daily to de-access each port and lock dormant implanted port while not in use. Flush each port access with 10 mL sodium chloride 0.9% MAX: 10 mL per each port lumen sodium chloride (PF) 0.9% PF flush 10-20 mL 10-20 mL, Intracatheter, EVERY 28 DAYS, First dose on Wed06/06/24 at 1000, To flush and lock each port in dual implanted port. Flush each port with 10 mL sodium chloride 0.9% followed by either heparin or anticoagulant citrate as ordered. Max: 10 mL per each port lumen. documented in this encounter Active and Recently Administered Medications Times are shown in PULL TAB DEALER. Scheduled Medication Order 06/04/2024 06/05/2024 06/06/2024 heparin lock flush 10 unit/mL injection 5-10 mL 5-10 mL, Intracatheter, EVERY 24 HOURS, First dose on Wed06/06/24 at 1000, To lock each dormant port in dual implanted port. MAX: 5 mL of heparin for each lumen Check PRN heparin flush order to see when the last dose of the PRN heparin was given before administering this heparin dose. Flush with sodium chloride 0.9% followed by the heparin flush. 1000 (Canceled Entry - Provider: Orders Generic Provider - Comment: Automatically canceled at discontinue of medication order) heparin lock flush 100 unit/mL injection 5-10 mL 5-10 mL, Intracatheter, EVERY 28 DAYS, First dose on Wed06/06/24 at 1000, To de-access each port in dual implanted port. Flush with 10 mL NS sodium chloride 0.9% flush followed by 5 mL heparin (100 units/mL) at discharge and at least every 28 days. MAX: 5 mL per each port lumen 1313 ($Given - Provi nas: Emmy Kelly RN) HYDROmorphone (DILAUDID) injection 2 mg (COMPLETED) 2 mg, Intravenous, ONCE, On Wed06/06/24 at 1300, For 1 dose 1257 ($Given - Provi nas: Emmy Kelly RN) lactated ringers BOLUS 1,000 mL (COMPLETED) Intravenous, 1,000 mL, ONCE, On Wed06/06/24 at 1000, For 1 dose 1012 ($New Bag - Pro vider: Emmy Kelly RN)1253 (Stopped - Provider: Emmy Kelly RN) sodium chloride (PF) 0.9% PF flush 10-20 mL 10-20 mL, Intracatheter, EVERY 28 DAYS, First dose on Wed06/06/24 at 1000, To flush and lock each port in dual implanted port. Flush each port with 10 mL sodium chloride 0.9% followed by either heparin or anticoagulant citrate as ordered. Max: 10 mL per each port lumen. 1000 (Canceled Entry - Provider: Orders Generic Provider - Comment: Automatically canceled at discontinue of medication order) PRN Medication Order 06/04/2024 06/05/2024 06/06/2024 diphenhydrAMINE (BENADRYL) capsule 50 mg (COMPLETED) 50 mg, Oral, ONCE PRN, itching, anxiety, Starting on Wed06/06/24 at 0958, For 1 dose 1022 ($Given - Provi nas: Emmy Kelly RN) heparin lock flush 10 unit/mL injection 5-10 mL 5-10 mL, Intracatheter, EVERY 1 HOUR PRN, post meds or blood draw, other, to lock each port in dual implanted port, Starting on Wed06/06/24 at 0955, Flush each port lumen with the sodium chloride 0.9% flush followed by the heparin flush. MAX dose: 5 mL of heparin for each lumen HYDROmorphone (DILAUDID) injection 2 mg (COMPLETED) 2 mg, Intravenous, EVERY 1 HOUR PRN, moderate pain, Starting on Wed06/06/24 at 0958, For 2 doses 1022 ($Given - Provi nas: Emmy Kelly RN)1131 ($Given - Provider: Emmy Kelly RN) sodium chloride (PF) 0.9% PF flush 10-20 mL 10-20 mL, Intracatheter, EVERY 1 MIN PRN, line flush, post meds or blood draw, to flush each lumen of the CVC Implanted port, Starting on Wed06/06/24 at 0955, 10 mL per port lumen post IV meds; 20 mL per port lumen post post blood draw. sodium chloride (PF) 0.9% PF flush 10-20 mL 10-20 mL, Intracatheter, EVERY 1 HOUR PRN, other, to de-access port when not in use, Starting on Wed06/06/24 at 0955, Use sodium chloride 0.9% at least daily to de-access each port and lock dormant implanted port while not in use. Flush each port access with 10 mL sodium chloride 0.9% MAX: 10 mL per each port lumen documented in this encounter Care Teams Author Agent Relationship Specialty Start Date End Date No Ref-Primary, Physician PCP - General 03/15/24 06/17/24 Mor Ramsey Medical Student 04/03/24 Case Samuel MD [address] [place] [address], [address] [place] [address] Assigned Pediatric Specialist Provider 05/18/24 Marcelino, Juhi, RN Specialty [facility] 05/29/24 documented as of this encounter
--- OUTSIDE RECORDS SUMMARY | 2024-06-21 22:17 | XMS_ITS | Encounter Summary ---
Author Organization [facility] Address [address] [place] [address]. [place] [address] Care Team Providers Care Project Design Engineer Name Role Phone No Ref-Primary, Physician Primary Care Provider Mor Ramsey Unavailable Unavailable Case Samuel MD Unavailable [phone] Juhi Benson RN Unavailable Unavailable Reason for Visit * Reason Comments Sickle Cell Pain Crisis Encounter Details Date Type Department Care Team (Late st Contact Info) Description 06/01/2024 11:41 PM COMMUNICATIONS SYSTEMS ENGINEER - 06/02/2024 2:35 AM [facility] Emergency [facility] Emergency Room [address] [place] [address] Noel Pinzon MD [address] [place] [address] Sickle cell pain crisis (H) Discharge Disposition: [...] on file Legal Sex Female 8:25 AM COMMUNICATIONS SYSTEMS ENGINEER Gender Identity Not on file Sexual Orientation Not on file documented as of this encounter Last Filed Vital Signs Vital Sign Reading Time Taken Comments Blood Pressure 117/69 06/02/2024 2:15 AM COMMUNICATIONS SYSTEMS ENGINEER Pulse 73 06/02/2024 2:15 AM COMMUNICATIONS SYSTEMS ENGINEER Temperature 36.7 C (98.1 F) 06/01/2024 10:44 PM COMMUNICATIONS SYSTEMS ENGINEER Respiratory Rate 15 06/02/2024 2:00 AM COMMUNICATIONS SYSTEMS ENGINEER Oxygen Saturation 95% 06/02/2024 2:15 AM COMMUNICATIONS SYSTEMS ENGINEER Inhaled Oxygen Concentration - - Weight 54.4 kg (120 lb) 06/01/2024 10:44 PM COMMUNICATIONS SYSTEMS ENGINEER Height - - Body Mass Index 22.67 05/31/2024 9:39 PM COMMUNICATIONS SYSTEMS ENGINEER documented in this encounter Discharge Instructions * Discharge Instructions* Noel Pinzon MD - 06/02/2024 1:57 AM COMMUNICATIONS SYSTEMS ENGINEER Continue outpatient follow up and cares with your specialist. delivery supervisor your prescription for dilaudid tomorrow and take as directed. UNICATIONS SYSTEMS ENGINEER UNICATIONS SYSTEMS ENGINEER documented in this encounter Medications at Time [...] as needed for severe pain. 40 tablet 05/29/2024 documented as of this encounter ED Notes * Obie Schofield RN - 06/02/2024 2:33 AM CST Pt declined AVS. Education provided on worsening symptoms to watch out for and close follow-up withPCP. All questions were answered. Vitally stable upon discharge. UNICATIONS SYSTEMS ENGINEER UNICATIONS SYSTEMS ENGINEER * Noel Pinzon MD - 06/01/2024 11:07 PM CST Emergency Department Encounter Evaluation Date & Time: No admission date for patient encounter. CHIEF COMPLAINT: Sickle Cell Pain Crisis Triage Note:PT is coming in tonight for a sickle cell crisis. Pt has been waiting for her pharmacy to fill her RX. They stated that pharmacy might have the RX tomorrow. No OTC medication HAND GLUER AND SLICER. ED COURSE & MEDICAL DECISION MAKING: Pt with a history of sickle cell disease, frequent Ed presentations for pain related to this. Pt having similar pain to b/l thighs and low back. Denies chst pain, dyspnea, fevers, cough. Pt afebrile,nontoxic. Do not suspect acute chest syndrome. Labs in ED done yesterday. Pt's primary issue is herhome dilaudid is out and pharmacy couldn't fill due to lack of med, but should get tomorrow. Will treat for pain here, plan for eventual discharge. Pt agreeable. ED Course as of 06/02/24 0236 [place] Jun 01, 2024 2307 I met the patient, performed my physical exam, and discussed plan of care. Fri Jun 02, 2024 0134 Pt re-evaluated, feeling improved. Will discharge eventually. HR down to 70s. 0213 Pt feeling better, asking for her 3rd dose of dilaudid and then would like to go home. Medical Decision Making History: Supplemental history from: N/A External Record(s) reviewed: Documented in chart Work Up: Chart documentation includes differential considered and any EKGs or imaging independently interpreted by provider, where specified. In additional to work up documented, I considered the following work up: Documented in chart, if applicable. External consultation: Discussion of management with another provider: Documented in chart, if applicable Complicating factors: Care impacted by chronic illness: Other: sickle cell disease Care affected by social determinants of health: Access to Medical Care Disposition considerations: Discharge. No recommendations on prescription strength medication(s). See documentation for any additional details. Not Applicable At the conclusion of the encounter I discussed the results of all the tests and the disposition. The questions were answered. The patient or family acknowledged understanding and was agreeable with the care plan. MEDICATIONS GIVEN IN THE EMERGENCY DEPARTMENT: Medications sodium chloride (PF) 0.9% PF flush 10-20 mL (has no administration in time range) sodium chloride (PF) 0.9% PF flush 10-20 mL (has no administration in time range) sodium chloride (PF) 0.9% PF flush 10-20 mL (20 mLs Intracatheter $Given 06/02/24 0012) heparin lock flush 10 unit/mL injection 5-10 mL (has no administration in time range) heparin lock flush 10 unit/mL injection 5-10 mL ( Intracatheter Not Given 06/02/24 022) heparin lock flush 100 unit/mL injection 5-10 mL (5 mLs Intracatheter $Given 06/02/24 0229) HYDROmorphone (DILAUDID) injection 2 mg (2 mg Intravenous $Given 06/02/24 0007) ondansetron (ZOFRAN) injection 8 mg (8 mg Intravenous $Given 06/02/24 0006) lactated ringers BOLUS 1,000 mL (0 mLs Intravenous Stopped 06/02/24 0201) HYDROmorphone (DILAUDID) injection 2 mg (2 mg Intravenous $Given 06/02/24 0217) diphenhydrAMINE (BENADRYL) injection 50 mg (50 mg Intravenous $Given 06/02/24 0117) NEW PRESCRIPTIONS STARTED AT TODAY'S ED VISIT: Discharge Medication List as of 06/02/2024 2:35 AM HPI The history is provided by the patient. No portfolio administrator was used. Gianna Hernández is a 29 year old female with a pertinent history of sickle cell disease, PE, stroke who presents to this ED by drop off for evaluation of sickle cell pain. The patient reports she was prescribed dilaudid, managed by her hematology team, however when she went to fill her prescription today the pharmacy was out of dilaudid and would not have a restock until tomorrow. She is having her typical sickle cell pain which is in her thighs and lower back. She does not feel she is in pain crisis. She has not had any chest pain or fevers. She does not endorse any other complaints at this time. She is due to start exchanges with hematology on 06/12/24. REVIEW OF SYSTEMS: See HPI Medical History Past Medical History: Diagnosis Date [...] Alcohol use: Not Currently Drug use: Never FLUoxetine (PROZAC) 10 MG capsule folic acid (FOLVITE) 1 MG tablet HYDROmorphone (DILAUDID) 2 MG tablet hydroxyurea (HYDREA) 500 MG capsule multivitamin, therapeutic (THERA-VIT) TABS tablet Physical Exam Vitals: BP 117/69 Pulse 73 Temp 98.1 ??F (36.7 ??C) (Temporal) Resp 15 Wt 54.4 kg (120 lb) SpO2 95% BMI 22.67 kg/m?? PHYSICAL EXAM: Physical Exam Vitals and nursing note reviewed. Constitutional: General: She is not in acute distress. Appearance: Normal appearance. HENT: Head: Normocephalic and atraumatic. Nose: Nose normal. Mouth/Throat: Mouth: Mucous membranes are moist. Eyes: Pupils: Pupils are equal, round, and reactive to light. Cardiovascular: Rate and Rhythm: Normal rate and regular rhythm. Pulses: Normal pulses. Radial pulses are 2+ on the right side and 2+ on the left side. Dorsalis pedis pulses are 2+ on the right side and 2+ on the left side. Pulmonary: Effort: Pulmonary effort is normal. No respiratory distress. Breath sounds: Normal breath sounds. Abdominal: Palpations: Abdomen is soft. Tenderness: There is no abdominal tenderness. Musculoskeletal: Cervical back: Full passive range of motion without pain and neck supple. Comments: No calf tenderness or swelling b/l Skin: General: Skin is warm. Findings: No rash. Neurological: General: No focal deficit present. Mental Status: She is alert. Mental status is at baseline. Comments: Fluent speech, no acute lateralizing deficits Psychiatric: Mood and Affect: Mood normal. Behavior: Behavior normal. Results LAB: All pertinent labs reviewed and interpreted Labs Ordered and Resulted from Time of ED Arrival to Time of ED Departure - No data to display RADIOLOGY: No orders to display ECG: none PROCEDURES: Procedures: none FINAL IMPRESSION: ICD-10-CM 1. Sickle cell pain crisis (H) D57.00 0 minutes of critical care time I, Darron Garcia, am serving as a scribe to document services personally performed by Dr. Herzog, based on my observations and the provider's statements to me. I, Noel Pinzon, attestthat Darron Garcia is acting in a scribe capacity, has observed my performance of the services and has documented them in accordance with my direction. Noel Pinzon DO Emergency Medicine [facility] EM[facility]Y [facility] 06/01/2024 11:07 PM Noel Pinzon MD 06/02/24 0236 UNICATIONS SYSTEMS ENGINEER * Aminata Farley, SOFIA - 06/01/2024 10:45 PM CST PT is coming in tonight for a sickle cell crisis. Pt has been waiting for her pharmacy to fill her RX. They stated that pharmacy might have the RX tomorrow. No OTC medication HAND GLUER AND SLICER. Triage Assessment (Adult) Row Name 06/01/24 2244 Triage Assessment Airway WDL WDL Respiratory WDL Respiratory WDL WDL Skin Circulation/Temperature WDL Skin Circulation/Temperature WDL WDL Cardiac WDL Cardiac WDL WDL Peripheral/Neurovascular WDL Peripheral Neurovascular WDL WDL Cognitive/Neuro/Behavioral WDL Cognitive/Neuro/Behavioral WDL WDL UNICATIONS SYSTEMS ENGINEER documented in this encounter Plan of Treatment Not on file documented as of this encounter Goals Goal Patient Goal Type Associated Problems Recent Progress Patient-Stated? Author Pain Management General On track( 025 12:40 PM COMMUNICATIONS SYSTEMS ENGINEER) Yes Juhi Benson, RN Note: Goal Statement: [...] Date Dose Rate Site diphenhydrAMINE (BENADRYL) injection 50 mg 50 mg, Intravenous, ONCE, On Wed06/02/24 at 0130, For 1 dose $Given 06/02/2024 1:17 AM COMMUNICATIONS SYSTEMS ENGINEER 50 mg heparin lock flush 10 unit/mL injection 5-10 mL 5-10 mL, Intracatheter, EVERY 1 HOUR PRN, post meds or blood draw, other, to lock each port in dual implanted port, Starting on Wed06/02/24 at 0005, Flush each port lumen with the sodium chloride 0.9% flush followed by the heparin flush. MAX dose: 5 mL of heparin for each lumen heparin lock flush 10 unit/mL injection 5-10 mL 5-10 mL, Intracatheter, EVERY 24 HOURS, First dose on Wed06/02/24 at 0030, To lock each dormant port in dual [...] Intracatheter, EVERY 28 DAYS, First dose on Wed06/02/24 at 0030, To de-access each port in dual implanted port. Flush with 10 mL NS sodium chloride 0.9% flush followed by 5 mL heparin (100 units/mL) at discharge and at least every 28 days. MAX: 5 mL per each port lumen $Given 06/02/2024 2:29 AM COMMUNICATIONS SYSTEMS ENGINEER 5 mLs HYDROmorphone (DILAUDID) injection 2 mg 2 mg, Intravenous, ONCE, On [place]lali 06/01/24 at 2330, For 1 dose $Given 06/02/2024 12:07 AM COMMUNICATIONS SYSTEMS ENGINEER 2 mg HYDROmorphone (DILAUDID) injection 2 mg 2 mg, Intravenous, EVERY 1 HOUR PRN, severe pain, Starting on Wed06/01/24 at 2308, For 2 doses $Given 06/02/2024 2:17 AM COMMUNICATIONS SYSTEMS ENGINEER 2 mg $Given 06/02/2024 1:16 AM COMMUNICATIONS SYSTEMS ENGINEER 2 mg lactated ringers BOLUS 1,000 mL Intravenous, 1,000 mL, ONCE, On Citlali 06/01/24 at 2330, For 1 dose $New Bag 06/02/2024 12:06 AM COMMUNICATIONS SYSTEMS ENGINEER 1,000 mLs ondansetron (ZOFRAN) injection 8 mg 8 mg, Intravenous, ONCE, Administer over 2-5 Minutes, On Citlali 06/01/24 at 2330, For 1 dose $Given 06/02/2024 12:06 AM COMMUNICATIONS SYSTEMS ENGINEER 8 mg sodium chloride (PF) 0.9% PF flush 10-20 mL 10-20 mL, Intracatheter, EVERY 1 MIN PRN, line flush, post meds or blood draw, to flush each lumen of the CVC Implanted port, Starting on Wed06/02/24 at 0005, 10 mL per port lumen post IV meds; 20 mL per port lumen post post blood draw. sodium chloride (PF) 0.9% PF flush 10-20 mL 10-20 mL, Intracatheter, EVERY 1 HOUR PRN, other, to de-access port when not in use, Starting on Wed06/02/24 at 0005, Use sodium chloride 0.9% at least daily to de-access each port and lock dormant implanted port while not in use. Flush each port access with 10 mL sodium chloride 0.9% MAX: 10 mL per each port lumen sodium chloride (PF) 0.9% PF flush 10-20 mL 10-20 mL, Intracatheter, EVERY 28 DAYS, First dose on Wed06/02/24 at 0030, To flush and lock each port in dual implanted port. Flush each port with 10 mL sodium chloride 0.9% followed by either heparin or anticoagulant citrate as ordered. Max: 10 mL per each port lumen. $Given 06/02/2024 12:12 AM COMMUNICATIONS SYSTEMS ENGINEER 20 mLs documented in this encounter Active and Recently Administered Medications Times are shown in COMMUNICATIONS SYSTEMS ENGINEER. Scheduled Medication Order 05/31/2024 06/01/2024 06/02/2024 diphenhydrAMINE (BENADRYL) injection 50 mg (COMPLETED) 50 mg, Intravenous, ONCE, On Wed06/02/24 at 0130, For 1 dose 0117 ($Given - Provi nas: Obie Schofield RN) heparin lock flush 10 unit/mL injection 5-10 mL 5-10 mL, Intracatheter, EVERY 24 HOURS, First dose on Wed06/02/24 at 0030, To lock each dormant port in dual implanted port. MAX: 5 mL of heparin for each lumen Check PRN heparin flush order to see when the last dose of the PRN heparin was given before administering this heparin dose. Flush with sodium chloride 0.9% followed by the heparin flush. 0222 (Not Given - Pr ovider: Obie Schofield RN - Reason: Order parameters not met) heparin lock flush 100 unit/mL injection 5-10 mL 5-10 mL, Intracatheter, EVERY 28 DAYS, First dose on Wed06/02/24 at 0030, To de-access each port in dual implanted port. Flush with 10 mL NS sodium chloride 0.9% flush followed by 5 mL heparin (100 units/mL) at discharge and at least every 28 days. MAX: 5 mL per each port lumen 0229 ($Given - Provi nas: Obie Schofield RN - Comment: pt discharging now) HYDROmorphone (DILAUDID) injection 2 mg (COMPLETED) 2 mg, Intravenous, ONCE, On [place]lali 06/01/24 at 2330, For 1 dose 0007 ($Given - Provi nas: Obie Schofield RN) lactated ringers BOLUS 1,000 mL (COMPLETED) Intravenous, 1,000 mL, ONCE, On Citlali 06/01/24 at 2330, For 1 dose 0006 ($New Bag - Pro vider: Obie Schofield RN)0201 (Stopped - Provider: Obie Schofield RN) ondansetron (ZOFRAN) injection 8 mg (COMPLETED) 8 mg, Intravenous, ONCE, Administer over 2-5 Minutes, On [place]lali 06/01/24 at 2330, For 1 dose 0006 ($Given - Provi nas: Obie Schofield RN) sodium chloride (PF) 0.9% PF flush 10-20 mL 10-20 mL, Intracatheter, EVERY 28 DAYS, First dose on Wed06/02/24 at 0030, To flush and lock each port in dual implanted port. Flush each port with 10 mL sodium chloride 0.9% followed by either heparin or anticoagulant citrate as ordered. Max: 10 mL per each port lumen. 0012 ($Given - Provi nas: Obie Schofield RN) PRN Medication Order 05/31/2024 06/01/2024 06/02/2024 heparin lock flush 10 unit/mL injection 5-10 mL 5-10 mL, Intracatheter, EVERY 1 HOUR PRN, post meds or blood draw, other, to lock each port in dual implanted port, Starting on Wed06/02/24 at 0005, Flush each port lumen with the sodium chloride 0.9% flush followed by the heparin flush. MAX dose: 5 mL of heparin for each lumen HYDROmorphone (DILAUDID) injection 2 mg (COMPLETED) 2 mg, Intravenous, EVERY 1 HOUR PRN, severe pain, Starting on [place]lali 06/01/24 at 2308, For 2 doses 0116 ($Given - Provi nas: Obie Schofield RN)0217 ($Given - Provider: Obie Schofield RN) sodium chloride (PF) 0.9% PF flush 10-20 mL 10-20 mL, Intracatheter, EVERY 1 MIN PRN, line flush, post meds or blood draw, to flush each lumen of the CVC Implanted port, Starting on Wed06/02/24 at 0005, 10 mL per port lumen post IV meds; 20 mL per port lumen post post blood draw. sodium chloride (PF) 0.9% PF flush 10-20 mL 10-20 mL, Intracatheter, EVERY 1 HOUR PRN, other, to de-access port when not in use, Starting on Wed06/02/24 at 0005, Use sodium chloride 0.9% at least daily to de-access each port and lock dormant implanted port while not in use. Flush each port access with 10 mL sodium chloride 0.9% MAX: 10 mL per each port lumen documented in this encounter Care Teams Project Design Engineer Relationship Specialty Start Date End Date No Ref-Primary, Physician PCP - General 03/15/24 06/17/24 Mor Ramsey Medical Student 04/03/24 Case Samuel MD [address] [place] [address] 484, [address] [place] [address] Assigned Pediatric Specialist Provider 05/18/24 Juhi Benson, RN Specialty Chief Executive Hematology & Oncology 05/29/24 documented as of this encounter
--- OUTSIDE RECORDS SUMMARY | 2024-06-21 22:17 | XMS_ITS | Encounter Summary ---
Author Organization [facility] Address [address] [place] [address]. [place] [address] Care Team Providers Care World Language Teacher Name Role Phone No Ref-Primary, Physician Primary Care Provider Mor Ramsey Unavailable Unavailable Case Samuel MD Unavailable [phone] Juhi Benson RN Unavailable Unavailable Encounter Details Date Type Department Care Team (Latest Contact Info) Description 06/09/2024 Travel Social History Tobacco Use Types Packs/Day [...] in an abandoned building, in an overnight usp, or couch-surfing.) Yes 04/09/2024 Are you worried [...] on file Legal Sex Female 8:25 AM SMELTER CHARGER Gender Identity Not on file Sexual Orientation Not on file documented as of this encounter Plan of Treatment Not on file documented as of this encounter Goals Goal Patient Goal Type Associated Problems Recent Progress Patient-Stated? Author Pain Management General On track( 025 12:40 PM SMELTER CHARGER) Yes Juhi Benson RN Note: Goal Statement: [...] on filedocumented in this encounter Care Teams World Language Teacher Relationship Specialty Start Date End Date No Ref-Primary, Physician PCP - General 03/15/24 06/17/24 Mor Ramsey Medical Student 04/03/24 Case Samuel MD [address] [place] [address] 484, [address] [place] [address] Assigned Pediatric Specialist Provider 05/18/24 Juhi Benson RN Specialty Enterprise Business Architect Hematology & Oncology 05/29/24 documented as of this encounter
--- OUTSIDE RECORDS SUMMARY | 2024-06-21 22:17 | XMS_ITS | Encounter Summary ---
Author Organization [place] Address [address] [place] [address]. [place] [address] Care Team Providers Care Rack Worker Name Role Phone No Ref-Primary, Physician Primary Care Provider Mor Ramsey Unavailable Unavailable Reason for Visit * Reason Comments Chest Pain Sickle Cell Pain Crisis Encounter Details Date Type Department Care Team (Late st Contact Info) Description 05/08/2024 3:10 PM SIGNALS INTELLIGENCE ANALYSIS MANAGER - 05/08/2024 7:54 PM SIGNALS INTELLIGENCE ANALYSIS MANAGER Emergency [facility] Emergency Room Critical access hospital[address] [place] [address] Polly Alcaraz MD [address] [place] [phone] Sickle cell pain crisis (H) Discharge Disposition: [...] in an abandoned building, in an overnight halfway, or couch-surfing.) Yes 04/09/2024 Are you worried [...] motionally safe where you currently live? Yes 04/09/2024 Within the past 12 months, h ave you been hit, slapped, kicked or otherwise physically hurt by someone? No 04/09/2024 Within the past 12 months, h ave you been humiliated or emotionally abused in other ways by your partner or ex-partner? No 04/09/2024 Comments No Sex and Gender Information Value Date Recorded Sex Assigned at Not on file Legal Sex Female 8:25 AM SIGNALS INTELLIGENCE ANALYSIS MANAGER Gender Identity Not on file Sexual Orientation Not on file documented as of this encounter Last Filed Vital Signs Vital Sign Reading Time Taken Comments Blood Pressure 108/57 05/08/2024 7:30 PM SIGNALS INTELLIGENCE ANALYSIS MANAGER Pulse 89 05/08/2024 7:30 PM SIGNALS INTELLIGENCE ANALYSIS MANAGER Temperature 36.6 C (97.8 F) 05/08/2024 4:16 PM SIGNALS INTELLIGENCE ANALYSIS MANAGER Respiratory Rate 24 05/08/2024 7:30 PM SIGNALS INTELLIGENCE ANALYSIS MANAGER Oxygen Saturation 94% 05/08/2024 7:30 PM SIGNALS INTELLIGENCE ANALYSIS MANAGER Inhaled Oxygen Concentration - - Weight - - Height - - Body Mass Index - - documented in this encounter Discharge Instructions * Discharge Instructions* Polly Alcaraz MD - 05/08/2024 7:48 PM SIGNALS INTELLIGENCE ANALYSIS MANAGER As we discussed is important to check in with your stacker attendant tomorrow. They should monitor you closely. I gave you a prescription for a few extra Dilaudid but they should also refill your prescription. As we discussed I am going to see if the viral panel is positive for any viruses otherwise we will start you on antibiotics for possible pneumonia. The stacker attendant did not feel that you need tostay in the hospital for this and they did not feel that there were signs of acute chest syndrome at this time. However it is very important you return to the ER if you develop worsening chest pain, shortness of breath, fever, or any new or worsening concerns. ALS INTELLIGENCE ANALYSIS MANAGER ALS INTELLIGENCE ANALYSIS MANAGER * Attachments The following attachments cannot be sent through Care Everywhere. 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 30 tablet 11 05/01/2024 HYDROmorphone (DILAUDID) 2 MG tablet Take 2 tablets (4 mg) by mouth every 6 hours as needed for pain. 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 30 tablet 05/09/2024 5 documented as of this encounter ED Notes * Polly Alcaraz MD - 05/08/2024 3:15 PM CST EMERGENCY DEPARTMENT ENCOUNTER NAME: Gianna Hernández AGE: [age] year old female DATE OF : 1995 EVALUATION DATE & TIME: 05/08/2024 3:10 PM PCP: No Ref-Primary, Physician ED PROVIDER: Polly Alcaraz MD Chief Complaint Patient presents with Chest Pain Sickle Cell Pain Crisis FINAL IMPRESSION: 1. Sickle cell pain crisis (H) ED COURSE & MEDICAL DECISION MAKING: Pertinent Labs & Imaging studies reviewed. (See chart for details) 5:05 PM I introduced myself to the patient, obtained patient history, performed a physical exam, and discussed plan for ED workup including potential diagnostic laboratory/imaging studies and interventions. 7:37 PM Updated patient. 29 year old female with a pertinent history of acute chest syndrome, chronic pain syndrome, sickle cell anemia who presents to this ED for evaluation of chest pain and sickle cell pain crisis. Patient has had multiple recent visits due to sickle cell pain and recently established care with hematology at the after moving to [place]. She continues to experience pain and ran out of her pain medication and tried to get into the infusion center but they did not have time available and thus she is here for pain control. She has had multiple recent work ups with evaluation on 05/05 and 05/04. She had a CTchest PE protocol without evidence of PE that did show multiple small pulmonary nodules and mild right enlargement of the right hilar lymph nodes not significantly changed from 04/06/24. With this CTon 05/04 without PE felt that this diagnosis would be unlikely. However, with her reporting chest pain did consider acute chest syndrome and will repeat labs and CXR. She is in agreement. Likely pain is from her sickle cell disease. EKG without signs of acute ischemia. COVID-19 influenza and RSV PCR is negative. test negative. Troponin less than 6 making acute coronary syndrome less likely. CMP largely unrevealing. Percent reticulocyte count 21.6. CBC with a hemoglobin of 8.5 which is near her baseline. White blood cell count is 16.6 And it does appear that it has been elevated in this range in the last month. Chest x-ray revealing increasing bilateral reticulonodular opacities. These most likely represent either infection or edema. No pleural effusion. The cardiac silhouette and vasculature are normal. Discussed with Dr. Rose with Hematology Oncology at the [facility] where the patient follows. He does not feel that this represents acute chest syndrome as she is not hypoxic, febrile, has a stable hemoglobin, and does not have a cough. We discussed her presentation and her report of a temp of 100 at home and her CXR findings that appear to be worsening per radiology read (previously had nodules). We also discussed that her WBC is elevated at 16.6 (does appear that it has been somewhat chronically elevated). He stated that he does not feel that this is acute chest and that she does not require admission. He recommended treating as possible community acquired pneumonia if viral testing negative and did not feel she would require admission or transfer for this. He will discuss with her primary stacker attendant and have them check in with her tomorrow for close follow up. Patient stated that she could not wait for viral testing to result as she needed child welfare assistant and I discussed I would contact her if negative and would send prescription to her pharmacy which I confirmed with her. Did give short refill of her dilaudid that she had run out of at home and attempted unsuccessfully to get a hold of her team to refill today but discussed she needs to contact them for further refill. She voiced understanding. She was given strict return precautions and we discussed importance of close follow up. After patient discharged, COVID 19, RSV, and influenza PCR is negative. Contacted the patient to call us back at the ER as the call went to voicemail. Stated that I would be sending prescriptions to her pharmacy as well discussed earlier but did not identify the prescriptions/any diagnosis due to her voicemail not having an identifier. She did not call the ER back during my shift. Prescriptions for Augmentin and doxycycline sent to her listed [facility] pharmacy. At the conclusion of the encounter I discussed the results of all of the tests and the disposition.The questions were answered. The patient or family acknowledged understanding and was agreeable with the care plan. Medical Decision Making Obtained supplemental history:Supplemental history obtained?: No Reviewed external records: External records reviewed?: Documented in chart and Outpatient Record: [facility] on 05/08/24 Care impacted by chronic illness:Chronic Pain and Other: acute chest syndrome, hemoglobin S-S disease Care significantly affected by social determinants of health:N/A Did you consider but not order tests?: Work up considered but not performed and documented in chart, if applicable Did you interpret images independently?: Independent interpretation of ECG and images noted in documentation, when applicable. Consultation discussion with other provider:Did you involve another provider (technical sales consultant, , pharmacy, etc.)?: I discussed the care with another health care provider, see documentation for details. Discharge. I prescribed additional prescription strength medication(s) as charted. See documentation for any additional details. Not Applicable MEDICATIONS GIVEN IN THE EMERGENCY: Medications diphenhydrAMINE (BENADRYL) capsule 25 mg (has no administration in time range) HYDROmorphone (DILAUDID) injection 2 mg (has no administration in time range) HYDROmorphone (DILAUDID) injection 2 mg (2 mg Intravenous $Given 05/08/241616) lactated ringers BOLUS 1,000 mL (1,000 mLs Intravenous $New Bag 05/08/241616) ondansetron (ZOFRAN) injection 4 mg (4 mg Intravenous $Given 05/08/241616) NEW PRESCRIPTIONS STARTED AT TODAY'S ER VISIT New Prescriptions No medications on file [facility] Patient information was obtained from: patient Use of In Room Dining Server: N/A Gianna Hernández is a 29 year old female with a pertinent history of acute chest syndrome, chronic pain syndrome, sickle cell anemia who presents to this ED for evaluation of chest pain and sickle cell pain crisis. Patient reports she ran out of her 4mg Dilaudid last night and tried to get a refill for this but was unable to do so. Patient presented to the infusion center but they were unable to fit her in so she was referred here for further management. She reports upper left chest discomfort that is harder than usual, slight temp of 100F (nothing above 100.5) that is relieved with Tylenol today, and upper back pain. Patient reports this is similar to symptoms she has had with acute chest in the past but not quite as severe as previous. However, she denies any cough, shortness of breath, nausea, vomiting, diarrhea, recent sick contacts, or use of anticoagulation. Patient is scheduled for a follow up with stacker attendant on 05/29/24. She reports she is also awaiting a call from them about placement of 2 ports. Patient recently moved to [place] a month ago and is established with heme onc at the . No other complaints or concerns at this time. REVIEW OF SYSTEMS Pertinent positives and negatives are documented in the HPI. All other systems reviewed and are negative. 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, sickle retinopathy Stroke (H) unclear location, self-report PAST SURGICAL HISTORY: Past Surgical History: Procedure Laterality Date ARTHROPLASTY KNEE Left details unclear TONSILLECTOMY & ADENOIDECTOMY Bilateral CURRENT MEDICATIONS: folic acid (FOLVITE) 1 MG tablet HYDROmorphone (DILAUDID) 2 MG tablet hydroxyurea (HYDREA) 500 MG capsule multivitamin, therapeutic (THERA-VIT) TABS tablet ALLERGIES: Allergies Allergen Reactions Banana Anaphylaxis, Hives and Swelling Other Reaction(s): Throat Swelling/Closing Ketorolac Anaphylaxis and Hives Latex Hives and Rash Morphine Hives, Other (See Comments) and Unknown Seizure. Other opioids tolerated. Nuts Hives and Anaphylaxis Tramadol Hives Acetaminophen Hives Cashew Nut Oil Hives Toradol [Ketorolac Tromethamine] FAMILY HISTORY: Family History Problem Relation Age of Onset Sickle Cell Trait Daughter SOCIAL HISTORY: Social History Socioeconomic History Marital status: Single Tobacco Use Smoking status: Never Smokeless tobacco: Never Substance and Sexual Activity Alcohol use: Not Currently Drug use: Never Social History Narrative Ndty-il-gqfd mom. Recently moved to [place] from [place], [place]. She is 1 of 9 [...] Social Connections: Socially Integrated (03/28/2024) [facility] Social Connections Do you often feel lonely or isolated from those around you?: 0 Interpersonal Safety: Low Risk (04/09/2024) Interpersonal Safety Do you feel physically and [...] you worried about losing your housing?: No VITALS: BP 121/76 Pulse 88 Temp 97.8 ??F (36.6 ??C) (Oral) Resp 22 SpO2 95% PHYSICAL EXAM Physical Exam Constitutional: Well developed, Well nourished, NAD, GCS 15 HENT: Normocephalic, Atraumatic, Bilateral external ears normal, Oropharynx normal, mucous membranes moist, Nose normal. Neck- Normal range of motion, No tenderness, Supple, No stridor. Eyes: PERRL, EOMI, Conjunctiva normal, No discharge. Respiratory: Normal breath sounds, No respiratory distress, No wheezing or crackles, Speaks in fullsentences easily. Cardiovascular: Normal heart rate, Regular rhythm, No murmurs, No rubs, No gallops. 2+ radial pulses bilaterally GI: Bowel sounds normal, Soft, No tenderness, No masses, No rebound or guarding. Musculoskeletal: 2+ DP pulses. No notable lower extremity edema. No cyanosis, No clubbing. Good range of motion in all major joints. No tenderness to palpation or major deformities noted. No tenderness of the CTLS spine. Integument: Warm, Dry, No erythema, No rash. No petechiae. Neurologic: Alert & oriented x 3, 5/5 strength in all 4 extremities bilaterally. Sensation intact to light touch in all 4 extremities and the face bilaterally. No focal deficits noted. Normal gait. Psychiatric: Affect normal, Judgment normal, Mood normal. Cooperative. LAB: All pertinent labs reviewed and interpreted. Results for orders placed or performed during the hospital encounter of 05/08/24 Comprehensive metabolic panel Result Value Ref Range Sodium 138 135 - 145 mmol/L Potassium 4.5 3.4 - 5.3 mmol/L Carbon Dioxide (CO2) 19 (L) 22 - 29 mmol/L Anion Gap 13 7 - 15 mmol/L Urea Nitrogen 8.6 6.0 - 20.0 mg/dL Creatinine 0.72 0.51 - 0.95 mg/dL GFR Estimate >90 >60 mL/min/1.73m2 Calcium 8.9 8.8 - 10.4 mg/dL Chloride 106 98 - 107 mmol/L Glucose 99 70 - 99 mg/dL Alkaline Phosphatase 116 40 - 150 U/L AST 43 0 - 45 U/L ALT 31 0 - 50 U/L Protein Total 8.3 6.4 - 8.3 g/dL Albumin 4.6 3.5 - 5.2 g/dL Bilirubin Total 2.6 (H) <=1.2 mg/dL Reticulocyte count Result Value Ref Range % Reticulocyte 21.6 (H) 0.5 - 2.0 % Absolute Reticulocyte 0.567 (H) 0.025 - 0.095 10e6/uL Result Value Ref Range Troponin T, High Sensitivity <6 <=14 ng/L Result Value Ref Range INR 1.36 (H) 0.85 - 1.15 HCG qualitative Blood Result Value Ref Range hCG Serum Qualitative Negative Negative ECG 12-LEAD WITH MUSE (LHE) Result Value Ref Range Systolic Blood Pressure 123 mmHg Diastolic Blood Pressure 58 mmHg Ventricular Rate 103 BPM Atrial Rate 103 BPM ND Interval 144 ms QRS Duration 78 ms QT 332 ms QTc 434 ms P [place] 39 degrees R AXIS 65 degrees T [place] 24 degrees Interpretation ECG Sinus tachycardia Nonspecific T wave abnormality Abnormal ECG When compared with ECG of 06-May-2024 19:51, No significant change was found Confirmed by SEE ED PROVIDER NOTE FOR, ECG INTERPRETATION ([id number]), assistant film editor SELMA GARRISON ([id number]) on 05/08/2024 4:18:52 PM RADIOLOGY: Reviewed all pertinent imaging. Please see official radiology report. Chest XR, PA & LAT (Results Pending) EKG: Performed at: 3:13 PM Impression: Sinus tachycardia No evidence of acute ischemia. When compared with ECG of 06-May-2024 19:51, No significant change was found Rate: 103 BPM Rhythm: sinus tachycardia [place]: 65 ND Interval: 144 ms QRS Interval: 78 ms QTc Interval: [address] Changes: None Comparison: When compared with ECG of 06-May-2024 19:51, No significant change was found I have independently reviewed and interpreted the EKG(s) documented above. PROCEDURES: I, Diana Ashby, am serving as a scribe to document services personally performed by Polly Alcaraz MD based on my observation and the provider's statements to me. I, Polly Alcaraz MD, attest that Diana Ashby is acting in a scribe capacity, has observed my performance of the services and has documented them in accordance with my direction. Polly Alcaraz MD [facility] EMERGENCY ROOM Critical access hospital[facility] [address] Polly Alcaraz MD 05/29/24 0213 ALS INTELLIGENCE ANALYSIS MANAGER * Tk Quiroz RN - 05/08/2024 3:12 PM CST Patient with history of Sickle cell here with complaint of chest pain 10/10 left upper radiating toback. Patient states she is out of her pain meds went to the pain clinic but they couldn't see her today so she was asked to come here Triage Assessment (Adult) Row Name 05/08/24 1512 Triage Assessment Airway WDL WDL Respiratory WDL Respiratory WDL WDL Skin Circulation/Temperature WDL Skin Circulation/Temperature WDL WDL Cardiac WDL Cardiac WDL X Cardiac Rhythm ST Peripheral/Neurovascular WDL Peripheral Neurovascular WDL WDL Cognitive/Neuro/Behavioral WDL Cognitive/Neuro/Behavioral WDL WDL ALS INTELLIGENCE ANALYSIS MANAGER documented in this encounter Plan of Treatment Not on file documented as of this encounter Goals Goal Patient Goal Type Associated Problems Recent Progress Patient-Stated? Author Pain Management General On track( 025 12:40 PM SIGNALS INTELLIGENCE ANALYSIS MANAGER) Yes Juhi Benson, RN Note: Goal Statement: [...] Procedure Name Priority Date/Time Associated Diagnosis Comments INFLUENZA A/B, RSV AND SARS-COV2 PCR STAT 05/08/2024 7:33 PM SIGNALS INTELLIGENCE ANALYSIS MANAGER XR CHEST 2 VIEWS STAT 05/08/2024 5:27 PM SIGNALS INTELLIGENCE ANALYSIS MANAGER RBC AND PLATELET MORPHOLOGY STAT 05/08/2024 4:14 PM SIGNALS INTELLIGENCE ANALYSIS MANAGER CBC WITH PLATELETS AND DIFFERENTIAL STAT 05/08/2024 4:14 PM SIGNALS INTELLIGENCE ANALYSIS MANAGER TROPONIN T, HIGH SENSITIVITY STAT 05/08/2024 4:14 PM SIGNALS INTELLIGENCE ANALYSIS MANAGER CBC WITH PLATELETS & DIFFERENTIAL STAT 05/08/2024 4:14 PM SIGNALS INTELLIGENCE ANALYSIS MANAGER RETICULOCYTE COUNT STAT 05/08/2024 4: 14 PM SIGNALS INTELLIGENCE ANALYSIS MANAGER INR STAT 05/08/2024 4:14 PM SIGNALS INTELLIGENCE ANALYSIS MANAGER HCG QUALITATIVE STAT 05/08/2024 4:14 PM SIGNALS INTELLIGENCE ANALYSIS MANAGER COMPREHENSIVE METABOLIC PANEL STAT 05/08/2024 4:14 PM SIGNALS INTELLIGENCE ANALYSIS MANAGER ECG 12-LEAD WITH MUSE SJN,SJO,WW STAT 05/08/2024 3:13 PM SIGNALS INTELLIGENCE ANALYSIS MANAGER documented in this encounter Results * Influenza A/B, RSV and SARS-CoV2 PCR (COVID-19) Nasopharyngeal (05/08/2024 7:33 PM SIGNALS INTELLIGENCE ANALYSIS MANAGER) Influenza A PCR Negative Negative 05/08/2024 8:18 PM SIGNALS INTELLIGENCE ANALYSIS MANAGER [facility] Influenza B PCR Negative Negative 05/08/2024 8:18 PM SIGNALS INTELLIGENCE ANALYSIS MANAGER [facility] RSV PCR Negative Negative 05/08/2024 8:18 PM SIGNALS INTELLIGENCE ANALYSIS MANAGER [facility] SARS CoV2 PCR Negative Negative 05/08/2024 8:18 PM SIGNALS INTELLIGENCE ANALYSIS MANAGER [facility] Comment:NEGATIVE: SARS-CoV-2 (COVID-19) RNA not detected, presumed negative. Swab NASOPHARYNGEAL STRUCTURE / Unknown Non-blood Collection / Unknown 05/08/2024 7:33 PM SIGNALS INTELLIGENCE ANALYSIS MANAGER 05/08/2024 7:37 PM SIGNALS INTELLIGENCE ANALYSIS MANAGER Narrative [facility] - 05/08/2024 8:18 PM SIGNALS INTELLIGENCE ANALYSIS MANAGER Testing was performed using the Xpert Xpress CoV2/Flu/RSV Assay on the [employer] Instrument. This test should be ordered for the detection of SARS- CoV2, influenza, and RSV viruses in individuals with signs and symptoms of respiratory tract infection. This test is for in vitro diagnostic use under the [place] FDA for laboratories certified under CLIA to perform high or moderate complexity testing. This test has been [place] FDA cleared. A negative result does not rule out the presence of PCR inhibitors in the specimen or target RNA in concentration below the limit of detection for the assay. If only one viral target is positive but coinfection with multiple targets is suspected, the sample should be re-tested with another FDA cleared, approved, or authorized test, if coninfection would change clinical management. This test was validated by the [facility]. These laboratories are certified under the Clinical Laboratory Improvement Amendments of 1988 (CLIA-88) as qualified to perfom high complexity laboratory testing. Polly Alcaraz MD LAB - MICRO GENERAL ORDERAB LES Final Result [facility] [address] [place] [address], [place] * Chest XR, PA & LAT (05/08/2024 5:27 PM SIGNALS INTELLIGENCE ANALYSIS MANAGER) Anatomical Region Laterality Modality Chest Digital Radiogra phy 05/08/2024 5:27 PM SIGNALS INTELLIGENCE ANALYSIS MANAGER Impressions 05/08/2024 5:41 PM SIGNALS INTELLIGENCE ANALYSIS MANAGER IMPRESSION: Increasing bilateral reticulonodular opacities. These most likely represent either infection or edema. No pleural effusion. The cardiac silhouette and vasculature are normal. Narrative 05/08/2024 5:41 PM SIGNALS INTELLIGENCE ANALYSIS MANAGER EXAM: XR CHEST 2 VIEWS LOCATION: [facility] DATE: 05/08/2024 INDICATION: chest pain, sickle cell COMPARISON: 05/05/2024 Procedure Note Korey Muse MD - 05/08/2024 EXAM: XR CHEST 2 VIEWS LOCATION: [facility] DATE: 05/08/2024 INDICATION: chest pain, sickle cell COMPARISON: 05/05/2024 IMPRESSION: Increasing bilateral reticulonodular opacities. These mostlikely represent either infection or edema. No pleural effusion. Thecardiac silhouette and vasculature are normal. Polly Alcaraz MD [facility] DI[facility]ST[facility] Final Result * (ABNORMAL) RBC and Platelet Morphology (05/08/2024 4:14 PM SIGNALS INTELLIGENCE ANALYSIS MANAGER) RBC Morphology Confirmed RBC Indices 05/08/2024 5:24 PM SIGNALS INTELLIGENCE ANALYSIS MANAGER [facility] Platelet Assessment Automated Count Confirmed. Platelet morphology is normal. Automated Count Confirmed. Platelet morphology is normal. JARET 05/08/2024 5:24 PM SIGNALS INTELLIGENCE ANALYSIS MANAGER [facility] Polychromasia Slight(A) None Seen JARET 05/08/2024 5:24 PM SIGNALS INTELLIGENCE ANALYSIS MANAGER [facility] Sickle Cells Moderate(A) None Seen JARET 05/08/2024 5:24 PM SIGNALS INTELLIGENCE ANALYSIS MANAGER [facility] Target Cells Slight(A) None Seen [facility] 05/08/2024 5:24 PM SIGNALS INTELLIGENCE ANALYSIS MANAGER [facility] Blood VENOUS LINE / Unknown Venipuncture / Unknown 05/08/2024 4:14 PM SIGNALS INTELLIGENCE ANALYSIS MANAGER 05/08/2024 4:21 PM SIGNALS INTELLIGENCE ANALYSIS MANAGER Polly Alcaraz MD LAB - BLOOD ORDERABLES Liss l Result [facility] [address] [place] [address], [place] * (ABNORMAL) CBC with platelets and differential (05/08/2024 4:14 PM SIGNALS INTELLIGENCE ANALYSIS MANAGER) [facility] [address] WBC Count 16.6(H) 4.0 - 11.0 10e3/uL 05/08/2024 5:24 PM [facility] RBC Count 2.62(L) 3.80 - 5.20 10e6/uL 05/08/2024 5:24 PM [facility] Hemoglobin 8.5(L) 11.7 - 15.7 g/dL 05/08/2024 5:24 PM [facility] [facility] Hematocrit 24.3(L) 35.0 - 47.0 % 05/08/2024 5:24 PM [facility] MCV 93 78 - 100 fL 05/08/2024 5:24 PM [facility] MCH 32.4 26.5 - 33.0 pg 05/08/2024 5:24 PM [facility] MCHC 35.0 31.5 - 36.5 g/dL 05/08/2024 5:24 PM [facility] RDW 22.9(H) 10.0 - 15.0 % 05/08/2024 5:24 PM [facility] Platelet Count 503(H) 150 - 450 10e3/uL 05/08/2024 5:24 PM [facility] % Neutrophils 64 % 05/08/2024 5:24 PM [facility] % Lymphocytes 23 % 05/08/2024 5:24 PM [facility] % Monocytes 11 % 05/08/2024 5:24 PM [facility] % Eosinophils 0 % 05/08/2024 5:24 PM [facility] % Basophils 1 % 05/08/2024 5:24 PM [facility] % Immature Granulocytes 1 % 05/08/2024 5:24 PM [facility] NRBCs per 100 WBC 2(H) <1 /100 025 5:24 PM [facility] Absolute Neutrophils 10.6(H) 1.6 - 8.3 10e3/uL 05/08/2024 5:24 PM [facility] Absolute Lymphocytes 3.8 0.8 - 5.3 10e3/uL 05/08/2024 5:24 PM [facility] Absolute Monocytes 1.8(H) 0.0 - 1.3 10e3/uL 05/08/2024 5:24 PM SIGNALS INTELLIGENCE ANALYSIS MANAGER [facility] Absolute Eosinophils 0.1 0.0 - 0.7 10e3/uL 05/08/2024 5:24 PM SIGNALS INTELLIGENCE ANALYSIS MANAGER [facility] Absolute Basophils 0.1 0.0 - 0.2 10e3/uL 05/08/2024 5:24 PM SIGNALS INTELLIGENCE ANALYSIS MANAGER [facility] Absolute Immature Granulocytes 0.2 <=0.4 10e3/uL 05/08/2024 5:24 PM SIGNALS INTELLIGENCE ANALYSIS MANAGER [facility] Absolute NRBCs 0.3 10e3/uL 05/08/2024 5:24 PM SIGNALS INTELLIGENCE ANALYSIS MANAGER [facility] Blood VENOUS LINE / Unknown Venipuncture / Unknown 05/08/2024 4:14 PM SIGNALS INTELLIGENCE ANALYSIS MANAGER 05/08/2024 4:21 PM SIGNALS INTELLIGENCE ANALYSIS MANAGER Polly Alcaraz MD LAB - BLOOD ORDERABLES Liss l Result Performing Organization Address [facility]/ZIP Co de Phone Number [facility] [address] [place], [place] [address] [place] [address], [facility] * HCG qualitative Blood (05/08/2024 4:14 PM SIGNALS INTELLIGENCE ANALYSIS MANAGER) Pathologist [facility] hCG Serum Qualitative Negative Negative JARET 05/08/2024 4:54 PM SIGNALS INTELLIGENCE ANALYSIS MANAGER [facility] Comment:This test is for scr eening purposes. Results should be interpreted along with the clinical picture. Confirmation testing is available if warranted by ordering [id number], HCG Quantitative . Blood VENOUS LINE / Unknown Venipuncture / Unknown 05/08/2024 4:14 PM SIGNALS INTELLIGENCE ANALYSIS MANAGER 05/08/2024 4:21 PM SIGNALS INTELLIGENCE ANALYSIS MANAGER Polly Alcaraz MD LAB - BLOOD ORDERABLES Liss l Result Performing Organization Address City/[facility]/ZIP Co de Phone Number [facility] Critical access [facility] [address] [place] [address], [facility] * (ABNORMAL) INR (05/08/2024 4:14 PM SIGNALS INTELLIGENCE ANALYSIS MANAGER) Pathologist [facility] INR 1.36(H) 0.85 - 1.15 05/08/2024 4:34 PM SIGNALS INTELLIGENCE ANALYSIS MANAGER [facility] Blood VENOUS LINE / Unknown Venipuncture / Unknown 05/08/2024 4:14 PM SIGNALS INTELLIGENCE ANALYSIS MANAGER 05/08/2024 4:21 PM SIGNALS INTELLIGENCE ANALYSIS MANAGER Polly Alcaraz MD LAB - BLOOD ORDERABLES Liss l Result Performing Organization Address [facility] de Phone Number [facility] [address] [place] [address] [place] [address], [facility] * Troponin T, High Sensitivity (05/08/2024 4:14 PM SIGNALS INTELLIGENCE ANALYSIS MANAGER) [facility] [address] Troponin T, High Sensitivity <6 <=14 ng/L 05/08/2024 4:41 PM SIGNALS INTELLIGENCE ANALYSIS MANAGER [facility] Comment: Either a High Sensitivity Troponin [...] provocative testing. Blood VENOUS LINE / Unknown Venipuncture / Unknown 05/08/2024 4:14 PM SIGNALS INTELLIGENCE ANALYSIS MANAGER 05/08/2024 4:21 PM SIGNALS INTELLIGENCE ANALYSIS MANAGER Polly Alcaraz MD LAB - BLOOD ORDERABLES Liss l Result Performing Organization Address [facility] Co de Phone Number [facility] [address] [place] [address] [place] [address], [facility] * (ABNORMAL) Reticulocyte count (05/08/2024 4:14 PM SIGNALS INTELLIGENCE ANALYSIS MANAGER) % Reticulocyte 21.6(H) 0.5 - 2.0 % 05/08/2024 4:25 PM SIGNALS INTELLIGENCE ANALYSIS MANAGER [facility] Absolute Reticulocyte 0.567(H) 0.025 - 0.095 10e6/uL 05/08/2024 4:25 PM SIGNALS INTELLIGENCE ANALYSIS MANAGER [facility] Blood VENOUS LINE / Unknown Venipuncture / Unknown 05/08/2024 4:14 PM SIGNALS INTELLIGENCE ANALYSIS MANAGER 05/08/2024 4:21 PM [facility] us Polly Alcaraz MD LAB - BLOOD ORDERABLES Liss plaza Result [facility] [address] [place] [address], [facility] * (ABNORMAL) Comprehensive metabolic panel (05/08/2024 4:14 PM [facility]) Sodium 138 135 - 145 mmol/L 05/08/2024 4:41 PM [facility] Potassium 4.5 3.4 - 5.3 mmol/L 05/08/2024 4:41 PM [facility] Carbon Dioxide (CO2) 19(L) 22 - 29 mmol/L 05/08/2024 4:41 PM [facility] Anion Gap 13 7 - 15 mmol/L 05/08/2024 4:41 PM [facility] Urea Nitrogen 8.6 6.0 - 20.0 mg/dL 05/08/2024 4:41 PM [facility] Creatinine 0.72 0.51 - 0.95 mg/dL 05/08/2024 4:41 PM [facility] GFR Estimate >90 >60 mL/min/1.7 3m2 05/08/2024 4:41 PM [facility] Comment:eGFR calculated usin 2020 CKD-EPI equation. Calcium 8.9 8.8 - 10.4 mg/dL 05/08/2024 4:41 PM [facility] Comment:Reference intervals for this test were updated on 11/09/2023 to reflect our healthy population more accurately. There may be differences in the flagging of prior results with similar values performed with this method. Those prior results can be interpreted in the context of the updated reference intervals. Chloride 106 98 - 107 mmol/L 05/08/2024 4:41 PM [facility] Glucose 99 70 - 99 mg/dL 05/08/2024 4:41 PM [facility] Alkaline Phosphatase 116 40 - 150 U/L 05/08/2024 4:41 PM [facility] AST 43 0 - 45 U/L 05/08/2024 4:41 PM [facility] ALT 31 0 - 50 U/L 05/08/2024 4:41 PM [facility] Protein Total 8.3 6.4 - 8.3 g/dL 05/08/2024 4:41 PM [facility] Albumin 4.6 3.5 - 5.2 g/dL 05/08/2024 4:41 PM [facility] Bilirubin Total 2.6(H) <=1.2 mg/dL 05/08/2024 4:41 PM [facility] Blood VENOUS LINE / Unknown Venipuncture / Unknown 05/08/2024 4:14 PM SIGNALS INTELLIGENCE ANALYSIS MANAGER 05/08/2024 4:21 PM SIGNALS INTELLIGENCE ANALYSIS MANAGER Polly Alcaraz MD LAB - BLOOD ORDERABLES Liss l Result [facility] [address] [place], [place] [address] * ECG 12-LEAD WITH MUSE (LHE) (05/08/2024 3:13 PM SIGNALS INTELLIGENCE ANALYSIS MANAGER) Systolic Blood Pressure 123 mmHg RADIOLOGY RESULTS Diastolic Blood Pressure 58 mmHg RADIOLOGY RESULTS Ventricular Rate 103 BPM RAD IOLOGY RESULTS Atrial Rate 103 BPM RADIOLOG Y RESULTS ND Interval 144 ms RADIOLOG Y RESULTS QRS Duration 78 ms RADIOLO GY RESULTS QT 332 ms RADIOLOGY RESULTS QTc 434 ms RADIOLOGY RESULTS P [place] 39 degrees RADIOLOGY RESULTS R AXIS 65 degrees RADIOLOGY RESULTS T [place] 24 degrees RADIOLOGY RESULTS Interpretation ECG Sinus tachycardia Nonspecific T wave abnormality Abnormal ECG When compared with ECG of 06-May-2024 19:51, No significant change was found Confirmed by SEE ED PROVIDER NOTE FOR, ECG INTERPRETATION ([id number]), assistant film editor SELMA GARRISON ([id number]) on 05/08/2024 4:18:52 PM RADIOLOGY RESULTS 05/08/2024 3:13 PM SIGNALS INTELLIGENCE ANALYSIS MANAGER 05/08/2024 4:18 PM SIGNALS INTELLIGENCE ANALYSIS MANAGER Polly Alcaraz MD ECG ORDERABLES Edited Resu lt - Final RADIOLOGY RESULTS documented in this encounter Visit Diagnoses Diagnosis 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 documented in this encounter Administered Medications Inactive Administered Medications - up to 3 most recent administrations Medication Order MAR Action Action Date Dose Rate Site diphenhydrAMINE (BENADRYL) capsule 25 mg 25 mg, Oral, ONCE, On Wed05/08/24 at 1730, For 1 dose $Given 05/08/2024 5:37 PM SIGNALS INTELLIGENCE ANALYSIS MANAGER 25 mg HYDROmorphone (DILAUDID) injection 2 mg 2 mg, Intravenous, ONCE, On Wed05/08/24 at 1530, For 1 dose $Given 05/08/2024 4:17 PM SIGNALS INTELLIGENCE ANALYSIS MANAGER 2 mg HYDROmorphone (DILAUDID) injection 2 mg 2 mg, Intravenous, ONCE, On Wed05/08/24 at 1730, For 1 dose $Given 05/08/2024 5:37 PM SIGNALS INTELLIGENCE ANALYSIS MANAGER 2 mg HYDROmorphone (DILAUDID) injection 2 mg 2 mg, Intravenous, ONCE, On Wed05/08/24 at 1900, For 1 dose $Given 05/08/2024 7:00 PM SIGNALS INTELLIGENCE ANALYSIS MANAGER 2 mg lactated ringers BOLUS 1,000 mL Intravenous, 1,000 mL, ONCE, at 1,000 mL/hr, Administer over 1 Hours, On Wed05/08/24 at 1530, For 1 dose $New Bag 05/08/2024 4:17 PM SIGNALS INTELLIGENCE ANALYSIS MANAGER 1,000 mLs 1000 mL/hr ondansetron (ZOFRAN) injection 4 mg 4 mg, Intravenous, ONCE, Administer over 2-5 Minutes, On Wed05/08/24 at 1530, For 1 dose $Given 05/08/2024 4:17 PM SIGNALS INTELLIGENCE ANALYSIS MANAGER 4 mg documented in this encounter Active and Recently Administered Medications Times are shown in SIGNALS INTELLIGENCE ANALYSIS MANAGER. Scheduled Medication Order 05/06/2024 05/07/2024 05/08/2024 diphenhydrAMINE (BENADRYL) capsule 25 mg (COMPLETED) 25 mg, Oral, ONCE, On Wed05/08/24 at 1730, For 1 dose 1737 ($Given - Provi nas: Monisha Pavon RN) HYDROmorphone (DILAUDID) injection 2 mg (COMPLETED) 2 mg, Intravenous, ONCE, On Wed05/08/24 at 1530, For 1 dose 1617 ($Given - Provi nas: Monisha Pavon RN) HYDROmorphone (DILAUDID) injection 2 mg (COMPLETED) 2 mg, Intravenous, ONCE, On Wed05/08/24 at 1730, For 1 dose 1737 ($Given - Provi nas: Monisha Pavon RN) HYDROmorphone (DILAUDID) injection 2 mg (COMPLETED) 2 mg, Intravenous, ONCE, On Wed05/08/24 at 1900, For 1 dose 1900 ($Given - Provi nas: Monisha Pavon RN) lactated ringers BOLUS 1,000 mL (COMPLETED) Intravenous, 1,000 mL, ONCE, at 1,000 mL/hr, Administer over 1 Hours, On Wed05/08/24 at 1530, For 1 dose 1617 ($New Bag - Pro vider: Monisha Pavon RN)1737 (Stopped - Provider: Monisha Pavon RN) ondansetron (ZOFRAN) injection 4 mg (COMPLETED) 4 mg, Intravenous, ONCE, Administer over 2-5 Minutes, On Wed05/08/24 at 1530, For 1 dose 1617 ($Given - Provi nas: Monisha Pavon RN) documented in this encounter Additional Health Concerns Infection Onset Date Last Indicated Resolved Time Rule Out COVID-19 05/08/2024 05/08/2024 05/08/2024 8:18 PM SIGNALS INTELLIGENCE ANALYSIS MANAGER documented as of this encounter Care Teams Rack Worker Relationship Specialty Start Date End Date No Ref-Primary, Physician PCP - General 03/15/24 06/17/24 Mor Ramsey Medical Student 04/03/24 documented as of this encounter
--- OUTSIDE RECORDS SUMMARY | 2024-06-21 22:17 | XMS_ITS | Encounter Summary ---
Author Organization [facility] Address [address] [place] [address]. [place] [address] Care Team Providers Care Sales Technician Home Theater Name Role Phone No Ref-Primary, Physician Primary Care Provider Mor Ramsey Unavailable Unavailable Case Samuel MD Unavailable [phone] Juhi Benson RN Unavailable Unavailable Reason for Visit * Reason Comments Infusion * Auth/Cert Specialty Diagnoses / Procedures Referred By Shahid t Referred To Contact EMERGENCY MEDICINE Diagnoses Acute chest pain Sickle cell pain crisis (H) [facility] Emergency Department [address] [place] [address] Phone: tel: Referral ID Status Reason Start Date Expiration Date Visits Re quested Visits Authorized [id number] 1 1 Encounter Details Date Type Department Care Team ([facility] st Contact Info) Description 06/09/2024 11:30 AM TRANSPORTATION MAINTENANCE OPERATOR Infusion Therapy Visit [facility] [address] [place] [address] Case Samuel MD [address] [facility] [address], [address] [place] [address] Sickle cell pain crisis (H) (Primary Dx) Social History Tobacco Use Types Packs/Day Years [...] in an abandoned building, in an overnight custodial, or couch-surfing.) Yes 04/09/2024 Are you worried [...] on file Legal Sex Female 8:25 AM TRANSPORTATION MAINTENANCE OPERATOR Gender Identity Not on file Sexual Orientation Not on file documented as of this encounter Last Filed Vital Signs Vital Sign Reading Time Taken Comments Blood Pressure 123/75 06/09/2024 11:45 AM TRANSPORTATION MAINTENANCE OPERATOR Pulse 87 06/09/2024 11:45 AM TRANSPORTATION MAINTENANCE OPERATOR Temperature 37 C (98.6 F) 06/09/2024 11:45 AM TRANSPORTATION MAINTENANCE OPERATOR Respiratory Rate 16 06/09/2024 11:45 AM TRANSPORTATION MAINTENANCE OPERATOR Oxygen Saturation 100% 06/09/2024 11:45 AM TRANSPORTATION MAINTENANCE OPERATOR Inhaled Oxygen Concentration - - Weight - - Height - - Body Mass Index - - documented in this encounter Progress Notes * Lynne Camacho, RN - 06/09/2024 11:30 AM CST Infusion Nursing Note: Gianna Hernández presents today for IV fluids + Dilaudid. Patient seen by provider today: No Associate Professor Of Library Media present during visit today: Not Applicable. Note: Rating pain at an 8 out of 10 upon arrival. 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 Intravenous Access: Implanted Port. Treatment Conditions: Not Applicable. Post Infusion Assessment: Patient tolerated infusion without incident. Patient observed for 15 minutes post Dilaudid, per protocol. Blood return noted pre and post infusion. Site patent and intact, free from redness, edema or discomfort. No evidence of extravasations. Access discontinued per protocol. Discharge Plan: Discharge instructions reviewed with: Patient and Family. Patient and/or family verbalized understanding of discharge instructions and all questions answered. AVS to patient via [employer]. Patient will return 06/13 for next appointment. Patient discharged in stable condition accompanied by: self and boyfriend. Departure Mode: Ambulatory. Lynne Camacho RN SPORTATION MAINTENANCE OPERATOR documented in this encounter Plan of Treatment Not on file documented as of this encounter Goals Goal Patient Goal Type Associated Problems Recent Progress Patient-Stated? Author Pain Management General On track( 025 12:40 PM TRANSPORTATION MAINTENANCE OPERATOR) Yes Juhi Benson, RN Note: Goal [...] Visit Diagnoses Diagnosis 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 documented in this encounter Administered Medications Inactive Administered Medications - up to 3 most recent administrations Medication Order MAR Action Action Date Dose Rate Site heparin lock flush 100 unit/mL injection 5 mL 5 mL, Intracatheter, ONCE PRN, To de-access CVC Impanted port or lock each lumen, Starting on Wed06/09/24 at 1111, PORT: to de-access, instill 5 mL before PORT needle is removed and every 28 days. Apheresis: only for use when patient is NOT under care of apheresis services; after a 10 mL NS flush, lock each lumen of the catheter with 5 mL.Indications:Sickle cell pain crisis (H) $Given 06/09/2024 2:03 PM TRANSPORTATION MAINTENANCE OPERATOR 5 mLs hydromorphone (DILAUDID) injection 2 mg 2 mg, Intravenous, EVERY 1 HOUR PRN, severe pain, moderate pain, Starting on Wed06/09/24 at 1111, For 3 dosesIndications:Sickle cell pain crisis (H) $Given 06/09/2024 1:58 PM TRANSPORTATION MAINTENANCE OPERATOR 2 mg $Given 06/09/2024 12:52 PM TRANSPORTATION MAINTENANCE OPERATOR 2 mg $Given 06/09/2024 11:53 AM TRANSPORTATION MAINTENANCE OPERATOR 2 mg lactated ringers BOLUS 1,000 mL Intravenous, 1,000 mL, ONCE, at 500 mL/hr, Administer over 2 Hours, On Wed06/09/24 at 1115, For 1 doseIndications:Sickle cell pain crisis (H) $New Bag 06/09/2024 11:45 AM TRANSPORTATION MAINTENANCE OPERATOR 1,000 mLs 500 mL/hr sodium chloride (PF) 0.9% PF flush 3-20 mL 3-20 mL, Intracatheter, EVERY 1 MIN PRN, line flush, post meds or blood draw, Starting on Wed06/09/24 at 1111, PIV: 3 mL after each use & PRN to access patency Midline, valved catheters, or PORT- 10mL after each use, PRN to access patency, 20 mL post blood draw Non-valved catheters: 10 mL after each use & PRN to access patency; 20mL flush pre and post blood draws or blood administration Apheresis: only for use when patient is NOT under care of apheresis services; 10 mL after each use & PRN to assess patency; 20 mL after blood draw.Indications:Sickle cell pain crisis (H) $Given 06/09/2024 11:45 AM TRANSPORTATION MAINTENANCE OPERATOR 20 mLs documented in this encounter Care Teams Sales Technician Home Theater Relationship Specialty Start Date End Date No Ref-Primary, Physician PCP - General 03/15/24 06/17/24 Mor Ramsey Medical Student 04/03/24 Case Samuel MD [address] [place] [address] [address], [address] [place] [address] Assigned Pediatric Specialist Provider 05/18/24 Juhi Benson, RN Specialty Electric Frying Pan Repairer Hematology & Oncology 05/29/24 documented as of this encounter
--- OUTSIDE RECORDS SUMMARY | 2024-06-21 22:17 | XMS_ITS | Encounter Summary ---
Author Organization [facility] Address [address] [place] [address]. [place] [address] Care Team Providers Care Senior Technical Specialist Name Role Phone No Ref-Primary, Physician Primary Care Provider Mor Ramsey Unavailable Unavailable Case Samuel MD Unavailable [phone] Juhi Benson RN Unavailable Unavailable Reason for Visit * Reason Comments Sickle Cell Pain Crisis Encounter Details Date Type Department Care Team (Late st Contact Info) Description 06/07/2024 10:00 AM BAR TURNER - 06/07/2024 10:45 AM [facility] Emergency [facility] Emergency Room [facility] [place] [address] Bernabe Farley MD [facility] [address] [place] [address] Chest pain, unspecified type; Fever, unspecified fever cause; Left against medical advice Discharge Disposition: Home or Self Care Social [...] in an abandoned building, in an overnight retirement, or couch-surfing.) Yes 04/09/2024 Are you worried [...] on file Legal Sex Female 8:25 AM BAR TURNER Gender Identity Not on file Sexual Orientation Not on file documented as of this encounter Last Filed Vital Signs Vital Sign Reading Time Taken Comments Blood Pressure 108/63 06/07/2024 9:59 AM BAR TURNER Pulse 84 06/07/2024 9:59 AM BAR TURNER Temperature 36.6 C (97.9 F) 06/07/2024 9:59 AM [facility] T[facility]NER Respiratory Rate 19 06/07/2024 9:59 AM [facility] T[facility]NER Oxygen Saturation 100% 06/07/2024 9:59 AM [facility] TURNER Inhaled Oxygen Concentration - - Weight 52.2 kg (115 lb) 06/07/2024 9:59 AM BAR TURNER Height - - Body Mass Index 21.73 06/06/2024 9:33 AM BAR TURNER documented in this encounter Medications at Time [...] 05/01/2024 naloxone (NARCAN) 4 MG/0.1ML nasal spray [place] 1 spray (4 mg) into one nostril [...] ED Notes * Marilia Ness RN - 06/07/2024 10:40 AM CST PT informed she can't receive Dilaudid as there is concern she will drive after receiving it as shedid last visit. PT stated she did not want to wait for a roll off driver so she would like to leave at this time. MD and charge informed. TURNER * Bernabe Farley MD - 06/07/2024 10:04 AM CST EMERGENCY DEPARTMENT ENCOUNTER NAME: Gianna Hernández AGE: [age] year old female DATE OF : 1995 EVALUATION DATE & TIME: 06/07/2024 10:00 AM PCP: No Ref-Primary, Physician ED PROVIDER: Bernabe Farley M.D. Chief Complaint Patient presents with Sickle Cell Pain Crisis FINAL IMPRESSION: 1. Chest pain, unspecified type 2. Fever, unspecified fever cause 3. Left against medical advice ED COURSE & MEDICAL DECISION MAKING: Pertinent Labs & Imaging studies reviewed below. All EKGs below represent my independent interpretation. ED Course as of 06/07/24 1045 WedJun 07, 2024 104 Patient is a 29-year-old woman who presents with chest pain, fever. She has known sickle cell disease and has been seen almost daily for the past month for sickle cell crisis, pain management. She has a care plan in place. She was last seen yesterday. Since then she said her chest pains return, she had a fever of 101 last night and again this morning. No recent sick contacts. Per note from , she unfortunately left by car as the roll off driver after stating to staff that she had a ride established. This morning she also stated that she got a ride here, but it was confirmed on camera thatshe drove himself. When this information was brought up to her she stated that she was not aware that she needed a ride and that her boyfriend could give her a ride later. Would like to rebiopsy infusion until that happens so that we can confirm she is not driving impaired. She told the nurse afterabout 30 minutes that she would like to leave, I will take about an hour for her boyfriend to get here and she does not want to wait. Not able to talk to her about this, we have not obtained any lab work or x-ray imaging at this time. She has already left. Additional ED Course timestamps entered by medical scheduler: 10:12 AM I met with the patient to obtain patient history and performed a physical exam. Discussed plan for ED work up including potential diagnostic studies and interventions. Medical Decision Making Obtained supplemental history:Supplemental history obtained?: No Reviewed external records: External records reviewed?: Documented in chart and Outpatient Record: ED visit from 06/08/24 Care impacted by chronic illness:Other: Sickle cell disease Care significantly affected by social determinants of health:N/A Did you consider but not order tests?: Work up considered but not performed and documented in chart, if applicable Did you interpret images independently?: Independent interpretation of ECG and images noted in documentation, when applicable. Consultation discussion with other provider: Phone conversation with consultants will be documentedin the ED Course Pt left AMA MIPS Criteria Documentation: Not Applicable MEDICATIONS GIVEN IN THE EMERGENCY: Medications sodium [...] lock flush 100 unit/mL injection 5-10 mL (has no administration in time range) HYDROmorphone (DILAUDID) injection 2 mg (has no administration in time range) ondansetron (ZOFRAN) injection 8 mg (has no administration in time range) diphenhydrAMINE (BENADRYL) capsule 25 mg (has no administration in time range) lactated ringers BOLUS 1,000 mL (has no administration in time range) NEW PRESCRIPTIONS STARTED AT TODAY'S ER VISIT New Prescriptions No medications on file HPI Gianna Hernández is a 29 year old female who presents to this ED for evaluation of cough and chest pain. Patient presents to the ED for chest pain and cough since last night (06/06/24). She had a fever of 101 yesterday and this morning. She took tylenol both times. Patient denies any sick contact. Patient states no other complaints or concerns at this time. Per Chart Review: 06/06/24, [facility] ED: Patient presented for sickle cell related pain. Reviewed her blood work lastdone on May 31. There is no new symptom with this today and her vital signs remained stable without hypoxia so as discussed with hematology there is no indication for repeat blood work today and or repeat imaging. She does struggle with chest pain as part of her sickle crisis. Care plan is reviewed. She is planning to start plasmapheresis but would like to discuss getting her seen by pain clinic so that they can start some longer acting pain management for her at home. Sending out this request to our physician who is working with her ophthalmic medical technologist for the care plan. Per the patient they were waiting till after she starts plasmapheresis but from an emergency medicine standpoint there is really no reason to wait for this to start her seeing pain management specifically as they can adjusther pain control as she does plasmapheresis with hematology oncology. She is quite interested in this as well because the home doses of oral hydromorphone do not seem to be working at all. Also I do not see in her home medication list that she has naloxone available to her so I did give her information on that and a prescription for it to have available to her and her family members at home if she shows signs of opiate overdose. Our legal administrative secretary Hattie and our security alarm installer Jagdeep both just saw the patient to get into the roll off driver seat and drive away after being told specifically that she cannot drive and that she had told us that her significant other was driving in to pick her up. VITALS: BP 108/63 Pulse 84 Temp 97.9 ??F (36.6 ??C) Resp 19 Wt 52.2 kg (115 lb) SpO2 100% BMI 21.73 kg/m?? PHYSICAL EXAM Constitutional: Uncomfortable appearing. HENT: Atraumatic, mucous membranes moist, nose normal. Neck- Supple, gross ROM intact. Eyes: Pupils mid-range, conjunctiva without injection, no discharge. Respiratory: Clear to auscultation bilaterally, no respiratory distress, no wheezing, speaks full sentences easily. No cough. Cardiovascular: Normal heart rate, regular rhythm, no murmurs. Musculoskeletal: Moving all 4 extremities intentionally and without pain. No obvious deformity. Skin: Warm, dry, no rash. Neurologic: Alert & oriented x 3, cranial nerves grossly intact. Psychiatric: Affect normal, cooperative. I, Gunner Crespo am serving as a scribe to document services personally performed by Dr. Bernabe Farley based on my observation and the provider's statements to me. IBernabe MD attest thatGunenr Crespo is acting in a scribe capacity, has observed my performance of the services and has documented them in accordance with my direction. Bernabe Farley M.D. Emergency Medicine [facility] EMERGENCY ROOM [address] [facility] [address] Dept: [phone] Bernabe Farley MD 06/07/24 1045 TURNER * Yanely Avendano RN - 06/07/2024 10:04 AM CST Pt here in sickle cell crisis for the 3rd day. Yesterday she received a lot of IV dilaudid and then drove home after told not to. Upon arrival here she repeatedly told this telegraphic typewriter repairer she was dropped off but after reviewing the security camera she is clearly driving in and getting out of the roll off driver seat. Provider notified. Reports chest pain today. Last dose of oral was 2 hours ago. Triage Assessment (Adult) Row Name 06/07/24 0959 Triage Assessment Airway WDL WDL Respiratory WDL Respiratory WDL WDL Skin Circulation/Temperature WDL Skin Circulation/Temperature WDL WDL Cardiac WDL Cardiac WDL WDL Peripheral/Neurovascular WDL Peripheral Neurovascular WDL WDL Cognitive/Neuro/Behavioral WDL Cognitive/Neuro/Behavioral WDL WDL TURNER documented in this encounter Plan of Treatment Not on file documented as of this encounter Goals Goal Patient Goal Type Associated Problems Recent Progress Patient-Stated? Author Pain Management General On track( 025 12:40 PM BAR TURNER) Yes Juhi Benson, RN Note: Goal Statement: [...] as of this encounter Visit Diagnoses Diagnosis Chest pain, unspecified type Fever, unspecified fever cause Left against medical advice Surgical or other procedure not carried out because of patient's decision documented in this encounter Administered Medications Inactive Administered Medications - up to 3 most recent administrations Medication Order MAR Action Action Date Dose Rate Site diphenhydrAMINE (BENADRYL) capsule 25 mg 25 mg, Oral, EVERY 4 HOURS PRN, itching, Starting on Wed06/07/24 at 1007 heparin lock flush 10 unit/mL injection 5-10 mL 5-10 mL, Intracatheter, EVERY 1 HOUR PRN, post meds or blood draw, other, to lock each port in dual implanted port, Starting on Wed06/07/24 at 1007, Flush each port lumen with the sodium chloride 0.9% flush followed by the heparin flush. MAX dose: 5 mL of heparin for each lumen heparin lock flush 10 unit/mL injection 5-10 mL 5-10 mL, Intracatheter, EVERY 24 HOURS, First dose on Wed06/07/24 at 1030, To lock each dormant port [...] Intracatheter, EVERY 28 DAYS, First dose on Wed06/07/24 at 1030, To de-access each port in dual implanted port. Flush with 10 mL NS sodium chloride 0.9% flush followed by 5 mL heparin (100 units/mL) at discharge and at least every 28 days. MAX: 5 mL per each port lumen HYDROmorphone (DILAUDID) injection 2 mg 2 mg, Intravenous, EVERY 1 HOUR PRN, severe pain, Starting on Wed06/07/24 at 1007, For 3 doses ondansetron (ZOFRAN) injection 8 mg 8 mg, Intravenous, EVERY 6 HOURS PRN, nausea, vomiting, Administer over 2-5 Minutes, Starting on Wed06/07/24 at 1007 sodium chloride (PF) 0.9% PF flush 10-20 mL 10-20 mL, Intracatheter, EVERY 1 MIN PRN, line flush, post meds or blood draw, to flush each lumen of the CVC Implanted port, Starting on Wed06/07/24 at 1007, 10 mL per port lumen post IV meds; 20 mL per port lumen post post blood draw. sodium chloride (PF) 0.9% PF flush 10-20 mL 10-20 mL, Intracatheter, EVERY 1 HOUR PRN, other, to de-access port when not in use, Starting on Wed06/07/24 at 1007, Use sodium chloride 0.9% at least daily to de-access each port and lock dormant implanted port while not in use. Flush each port access with 10 mL sodium chloride 0.9% MAX: 10 mL per each port lumen sodium chloride (PF) 0.9% PF flush 10-20 mL 10-20 mL, Intracatheter, EVERY 28 DAYS, First dose on Wed06/07/24 at 1030, To flush and lock each port in dual implanted port. Flush each port with 10 mL sodium chloride 0.9% followed by either heparin or anticoagulant citrate as ordered. Max: 10 mL per each port lumen. documented in this encounter Active and Recently Administered Medications Times are shown in BAR TURNER. Scheduled Medication Order 06/05/2024 06/06/2024 06/07/2024 heparin lock flush 10 unit/mL injection 5-10 mL 5-10 mL, Intracatheter, EVERY 24 HOURS, First dose on Wed06/07/24 at 1030, To lock each dormant port [...] Intracatheter, EVERY 28 DAYS, First dose on Wed06/07/24 at 1030, To de-access each port in dual implanted port. Flush with 10 mL NS sodium chloride 0.9% flush followed by 5 mL heparin (100 units/mL) at discharge and at least every 28 days. MAX: 5 mL per each port lumen 1030 (Canceled Entry - Provider: Orders Generic Provider - Comment: Automatically canceled at discontinue of medication order) lactated ringers BOLUS 1,000 mL Intravenous, 1,000 mL, ONCE, On Wed06/07/24 at 1030, For 1 dose 1030 (Canceled Entry - Provider: Orders Generic Provider - Comment: Automatically canceled at discontinue of medication order) sodium chloride (PF) 0.9% PF flush 10-20 mL 10-20 mL, Intracatheter, EVERY 28 DAYS, First dose on Wed06/07/24 at 1030, To flush and lock each port in dual implanted port. Flush each port with 10 mL sodium chloride 0.9% followed by either heparin or anticoagulant citrate as ordered. Max: 10 mL per each port lumen. 1030 (Canceled Entry - Provider: Orders Generic Provider - Comment: Automatically canceled at discontinue of medication order) PRN Medication Order 06/05/2024 06/06/2024 06/07/2024 diphenhydrAMINE (BENADRYL) capsule 25 mg 25 mg, Oral, EVERY 4 HOURS PRN, itching, Starting on Wed06/07/24 at 1007 heparin lock flush 10 unit/mL injection 5-10 mL 5-10 mL, Intracatheter, EVERY 1 HOUR PRN, post meds or blood draw, other, to lock each port in dual implanted port, Starting on Wed06/07/24 at 1007, Flush each port lumen with the sodium chloride 0.9% flush followed by the heparin flush. MAX dose: 5 mL of heparin for each lumen HYDROmorphone (DILAUDID) injection 2 mg 2 mg, Intravenous, EVERY 1 HOUR PRN, severe pain, Starting on Wed06/07/24 at 1007, For 3 doses ondansetron (ZOFRAN) injection 8 mg 8 mg, Intravenous, EVERY 6 HOURS PRN, nausea, vomiting, Administer over 2-5 Minutes, Starting on Wed06/07/24 at 1007 sodium chloride (PF) 0.9% PF flush 10-20 mL 10-20 mL, Intracatheter, EVERY 1 MIN PRN, line flush, post meds or blood draw, to flush each lumen of the CVC Implanted port, Starting on Wed06/07/24 at 1007, 10 mL per port lumen post IV meds; 20 mL per port lumen post post blood draw. sodium chloride (PF) 0.9% PF flush 10-20 mL 10-20 mL, Intracatheter, EVERY 1 HOUR PRN, other, to de-access port when not in use, Starting on Wed06/07/24 at 1007, Use sodium chloride 0.9% at least daily to de-access each port and lock dormant implanted port while not in use. Flush each port access with 10 mL sodium chloride 0.9% MAX: 10 mL per each port lumen documented in this encounter Additional Health Concerns Infection Onset Date Last Indicated Resolved Time Rule Out COVID-19 06/07/2024 06/07/2024 06/07/2024 12:50 PM BAR TURNER documented as of this encounter Care Teams Senior Technical Specialist Relationship Specialty Start Date End Date No Ref-Primary, Physician PCP - General 03/15/24 06/17/24 Mor Ramsey Medical Student 04/03/24 Case Samuel MD [address] [place] [address] [address], [address] [place] [address] Assigned Pediatric Specialist Provider 05/18/24 Juhi Benson, RN Specialty Fish Hatchery Superintendent Hematology & Oncology 05/29/24 documented as of this encounter
--- OUTSIDE RECORDS SUMMARY | 2024-06-21 22:17 | XMS_ITS | Encounter Summary ---
Author Organization [facility] Address [address] [place] [address]. [place] [address] Care Team Providers Care Guard Chief Name Role Phone No Ref-Primary, Physician Primary Care Provider Mor Ramsey Unavailable Unavailable Case Samuel MD Unavailable [phone] Juhi Benson RN Unavailable Unavailable Encounter Details Date Type Department Care Team (Latest Contact Info) Description 06/07/2024 Travel Social History Tobacco Use Types Packs/Day [...] on file Legal Sex Female 8:25 AM GEOPHYSICAL PROSPECTOR Gender Identity Not on file Sexual Orientation Not on file documented as of this encounter Plan of Treatment Not on file documented as of this encounter Goals Goal Patient Goal Type Associated Problems Recent Progress Patient-Stated? Author Pain Management General On track( 025 12:40 PM GEOPHYSICAL PROSPECTOR) Yes Juhi Benson RN Note: Goal Statement: [...] Diagnoses Not on filedocumented in this encounter Additional Health Concerns Infection Onset Date Last Indicated Resolved Time Rule Out COVID-19 06/07/2024 06/07/2024 06/07/2024 12:50 PM GEOPHYSICAL PROSPECTOR Rule Out COVID-19 06/07/2024 06/07/2024 06/07/2024 3:32 PM GEOPHYSICAL PROSPECTOR documented as of this encounter Care Teams Guard Chief Relationship Specialty Start Date End Date No Ref-Primary, Physician PCP - General 03/15/24 06/17/24 Elvira Ramseyc Medical Student 04/03/24 Case Samuel MD [address] [place] [address] [address], [address] [place] [address] Assigned Pediatric Specialist Provider 05/18/24 Juhi Benson, RN Specialty Medical Superintendent Hematology & Oncology 05/29/24 documented as of this encounter
--- OUTSIDE RECORDS SUMMARY | 2024-06-21 22:17 | XMS_ITS | Encounter Summary ---
Author Organization [facility] Address [address] [place] [address]. [place] [address] Care Team Providers Care Business Resiliency Manager Name Role Phone No Ref-Primary, Physician Primary Care Provider Mor Ramsey Unavailable Unavailable Case Samuel MD Unavailable [phone] Juhi Benson RN Unavailable Unavailable Reason for Visit * Reason Comments Infusion IVF + pain medicatio n Encounter Details Date Type Department Care Team (Late st Contact Info) Description 06/07/2024 1:30 PM EMERGENCY SERVICES DIRECTOR Infusion Therapy Visit [facility] [address] [place] [address] Case Samuel MD [address] [place] [address] 484, [address] [place], [place] [address] Fever (Primary Dx); Sickle cell pain crisis (H) Social History Tobacco Use Types Packs/Day Years [...] in an abandoned building, in an overnight skilled nursing, or couch-surfing.) Yes 04/09/2024 Are you worried [...] on file Legal Sex Female 8:25 AM EMERGENCY SERVICES DIRECTOR Gender Identity Not on file Sexual Orientation Not on file documented as of this encounter Last Filed Vital Signs Vital Sign Reading Time Taken Comments Blood Pressure 119/76 06/07/2024 3:43 PM EMERGENCY SERVICES DIRECTOR Pulse 72 06/07/2024 3:43 PM EMERGENCY SERVICES DIRECTOR Temperature 37 C (98.6 F) 06/07/2024 1:35 PM EMERGENCY SERVICES DIRECTOR Respiratory Rate 16 06/07/2024 1:35 PM EMERGENCY SERVICES DIRECTOR Oxygen Saturation 99% 06/07/2024 3:43 PM EMERGENCY SERVICES DIRECTOR Inhaled Oxygen Concentration - - Weight - - Height - - Body Mass Index - - documented in this encounter Patient Instructions * Patient Instructions* Tyson Hess RN - 06/07/2024 1:30 PM EMERGENCY SERVICES DIRECTOR Dear Gianna Hernández Thank you for choosing [facility] ([facility]) for your infusion. The following information is a summary of our appointment as well as important reminders. If you have any questions on your upcoming Specialty Infusion appointments, please call scheduling at [phone]. It was a pleasure taking care of you today. Sincerely, [facility] [address] [place] [id number] GENCY SERVICES DIRECTOR documented in this encounter Progress Notes * Tyson Hess RN - 06/07/2024 1:30 PM CST Infusion Nursing Note: Gianna Hernández presents today for IV infusion; IVF + pain medication. Patient seen by provider today: No Compliance Review Officer present during visit today: Not Applicable. Note: Administrations This Visit HYDROmorphone (DILAUDID) injection 2 mg Admin Date 06/07/2024 Action $Given Dose 2 mg Route Intravenous Documented By Tyson Hess RN lactated ringers BOLUS 1,000 mL Admin Date 06/07/2024 Action $New Bag Dose 1,000 mL Rate 500 mL/hr Route Intravenous Documented By Tyson Hess RN Temp: 98.6 ??F (37 ??C) Temp src: Oral BP: 122/83 Pulse: 98 Resp: 16 SpO2: 100 % O2 Device: None (Room air) Intravenous Access: Implanted Port. Treatment Conditions: Not Applicable. Post Infusion Assessment: Patient tolerated infusion without incident. Patient observed for 15 minutes post Dilaudid per protocol. Blood return noted pre and post infusion. Site patent and intact, free from redness, edema or discomfort. No evidence of extravasations. Access discontinued per protocol. Discharge Plan: Patient and/or family verbalized understanding of discharge instructions and all questions answered. AVS to patient via [employer]. Patient will return as needed for next appointment. Patient discharged in stable condition accompanied by: self. Departure Mode: Ambulatory. Tyson Hess RN GENCY SERVICES DIRECTOR documented in this encounter Plan of Treatment Not on file documented as of this encounter Goals Goal Patient Goal Type Associated Problems Recent Progress Patient-Stated? Author Pain Management General On track( 025 12:40 PM EMERGENCY SERVICES DIRECTOR) Yes Juhi Benson RN Note: Goal Statement: [...] Procedure Name Priority Date/Time Associated Diagnosis Comments RBC AND PLATELET MORPHOLOGY Routine 06/07/2024 1:15 PM EMERGENCY SERVICES DIRECTOR Sickle cell pain crisis (H) CBC WITH PLATELETS AND DIFFERENTIAL Routine 06/07/2024 1:15 PM EMERGENCY SERVICES DIRECTOR Sickle cell pain crisis (H) INFLUENZA A/B, RSV AND SARS-COV2 PCR Routine 06/07/2024 1:15 PM EMERGENCY SERVICES DIRECTOR Fever CBC WITH PLATELETS & DIFFERENTIAL Routine 06/07/2024 1:15 PM EMERGENCY SERVICES DIRECTOR Sickle cell pain crisis (H) BASIC METABOLIC PANEL Routine 06/07/2024 1:15 PM EMERGENCY SERVICES DIRECTOR Sickle cell pain crisis (H) documented in this encounter Results * (ABNORMAL) RBC and Platelet Morphology (06/07/2024 1:15 PM EMERGENCY SERVICES DIRECTOR) RBC Morphology Confirmed RBC Indices 06/07/2024 2:06 PM EMERGENCY SERVICES DIRECTOR [facility] Platelet Assessment Automated Count Confirmed. Platelet morphology is normal. Automated Count Confirmed. Platelet morphology is normal. 06/07/2024 2:06 PM EMERGENCY SERVICES DIRECTOR [facility] Ziegler-Poteau Bodies Present(A) None Seen 06/07/2024 2:06 PM EMERGENCY SERVICES DIRECTOR [facility] Polychromasia Slight(A) None Seen 06/07/2024 2:06 PM EMERGENCY SERVICES DIRECTOR [facility] Sickle Cells Moderate(A) None Seen 06/07/2024 2:06 PM EMERGENCY SERVICES DIRECTOR [facility] Target Cells Slight(A) None Seen 06/07/2024 2:06 PM EMERGENCY SERVICES DIRECTOR [facility] Teardrop Cells Slight(A) None Seen 06/07/2024 2:06 PM EMERGENCY SERVICES DIRECTOR [facility] Blood BLOOD SPECIMEN / Unknown IVAD (Port) / Unknown 06/07/2024 1:15 PM EMERGENCY SERVICES DIRECTOR 06/07/2024 1:35 PM EMERGENCY SERVICES DIRECTOR Case Samuel MD LAB - BLOOD ORDERABLES Fi nal Result [facility] [address] 1st [place] [address] * Influenza A/B, RSV and SARS-CoV2 PCR (COVID-19) Nasopharyngeal (06/07/2024 1:15 PM EMERGENCY SERVICES DIRECTOR) Influenza A PCR Negative Negative 06/07/2024 3:32 PM EMERGENCY SERVICES DIRECTOR [facility] Influenza B PCR Negative Negative 06/07/2024 3:32 PM EMERGENCY SERVICES DIRECTOR [facility] RSV PCR Negative Negative 06/07/2024 3:32 PM EMERGENCY SERVICES DIRECTOR [facility] SARS CoV2 PCR Negative Negative 06/07/2024 3:32 PM EMERGENCY SERVICES DIRECTOR [facility] Comment:NEGATIVE: SARS-CoV-2 (COVID-19) RNA not detected, presumed negative. Swab NASOPHARYNGEAL STRUCTURE / Unknown Non-blood Collection / Unknown 06/07/2024 1:15 PM EMERGENCY SERVICES DIRECTOR 06/07/2024 1:36 PM EMERGENCY SERVICES DIRECTOR Narrative [facility] - 06/07/2024 3:32 PM EMERGENCY SERVICES DIRECTOR Testing was performed using the Xpert Xpress CoV2/Flu/RSV Assay on the [employer] GeneXpert Instrument. This test should be ordered for [...] management. This test was validated by the [facility]. These laboratories are certified under the Clinical Laboratory Improvement Amendments of 1988 (CLIA-88) as qualified to perfom high complexity laboratory testing. us Case Samuel MD LAB - MICRO GENERAL ORDER SYD Final Result [facility] Inf. Diseases Diag. Lab [address] [facility], [address] [place] [address] * (ABNORMAL) CBC with platelets and differential (06/07/2024 1:15 PM EMERGENCY SERVICES DIRECTOR) WBC Count 13.7(H) 4.0 - 11.0 10e3/uL 06/07/2024 2:06 PM [facility] RBC Count 2.80(L) 3.80 - 5.20 10e6/uL 06/07/2024 2:06 PM [facility] Hemoglobin 8.8(L) 11.7 - 15.7 g/dL 06/07/2024 2:06 PM [facility] Hematocrit 25.3(L) 35.0 - 47.0 % 06/07/2024 2:06 PM [facility] MCV 90 78 - 100 fL 06/07/2024 2:06 PM [facility] MCH 31.4 26.5 - 33.0 pg 06/07/2024 2:06 PM [facility] MCHC 34.8 31.5 - 36.5 g/dL 06/07/2024 2:06 PM [facility] RDW 19.4(H) 10.0 - 15.0 % 06/07/2024 2:06 PM [facility] Platelet Count 516(H) 150 - 450 10e3/uL 06/07/2024 2:06 PM [facility] % Neutrophils 67 % 06/07/2024 2:06 PM [facility] % Lymphocytes 20 % 06/07/2024 2:06 PM [facility] % Monocytes 11 % 06/07/2024 2:06 PM [facility] % Eosinophils 1 % 06/07/2024 2:06 PM EMERGENCY SERVICES DIRECTOR [facility] % Basophils 1 % 06/07/2024 2:06 PM EMERGENCY SERVICES DIRECTOR [facility] % Immature Granulocytes 0 % 06/07/2024 2:06 PM EMERGENCY SERVICES DIRECTOR [facility] NRBCs per 100 WBC 1(H) <1 /100 025 2:06 PM EMERGENCY SERVICES DIRECTOR [facility] Absolute Neutrophils 9.2(H) 1.6 - 8.3 10e3/uL 06/07/2024 2:06 PM EMERGENCY SERVICES DIRECTOR [facility] Absolute Lymphocytes 2.7 0.8 - 5.3 10e3/uL 06/07/2024 2:06 PM EMERGENCY SERVICES DIRECTOR [facility] Absolute Monocytes 1.5(H) 0.0 - 1.3 10e3/uL 06/07/2024 2:06 PM [facility] Absolute Eosinophils 0.1 0.0 - 0.7 10e3/uL 06/07/2024 2:06 PM EMERGENCY SERVICES DIRECTOR [facility] Absolute Basophils 0.2 0.0 - 0.2 10e3/uL 06/07/2024 2:06 PM EMERGENCY SERVICES DIRECTOR [facility] Absolute Immature Granulocytes 0.1 <=0.4 10e3/uL 06/07/2024 2:06 PM EMERGENCY SERVICES DIRECTOR [facility] Absolute NRBCs 0.1 10e3/uL 06/07/2024 2:06 PM [facility] Blood BLOOD SPECIMEN / Unknown IVAD (Port) / Unknown 06/07/2024 1:15 PM EMERGENCY SERVICES DIRECTOR 06/07/2024 1:35 PM EMERGENCY SERVICES DIRECTOR us Case Samuel MD LAB - BLOOD ORDERABLES Fi nal Result [facility] [place] [address] [facility] 1st [place] [address] * (ABNORMAL) Basic metabolic panel (06/07/2024 1:15 PM EMERGENCY SERVICES DIRECTOR) Pathologist [facility] Sodium 139 135 - 145 mmol/L 06/07/2024 2:11 PM EMERGENCY SERVICES DIRECTOR [facility] Potassium 4.4 3.4 - 5.3 mmol/L 06/07/2024 2:11 PM [facility] Chloride 109(H) 98 - 107 mmol/L 06/07/2024 2:11 PM [facility] Carbon Dioxide (CO2) 22 22 - 29 mmol/L 06/07/2024 2:11 PM [facility] Anion Gap 8 7 - 15 mmol/L 06/07/2024 2:11 PM [facility] Urea Nitrogen 7.4 6.0 - 20.0 mg/dL 06/07/2024 2:11 PM [facility] Creatinine 0.66 0.51 - 0.95 mg/dL 06/07/2024 2:11 PM [facility] GFR Estimate >90 >60 mL/min/1.7 3m2 06/07/2024 2:11 PM [facility] Comment:eGFR calculated usin 2020 CKD-EPI equation. Calcium 9.3 8.8 - 10.4 mg/dL 06/07/2024 2:11 PM [facility] Glucose 98 70 - 99 mg/dL 06/07/2024 2:11 PM [facility] Blood BLOOD SPECIMEN / Unknown IVAD (Port) / Unknown 06/07/2024 1:15 PM EMERGENCY SERVICES DIRECTOR 06/07/2024 1:35 PM EMERGENCY SERVICES DIRECTOR Case Samuel MD LAB - BLOOD ORDERABLES Fi nal Result [facility] [address] 1[address] [place] [address] documented in this encounter Visit Diagnoses Diagnosis Fever- Primary Fever, unspecified 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 documented in this encounter Administered Medications Inactive Administered Medications - up to 3 most recent administrations Medication Order MAR Action Action Date Dose Rate Site heparin lock flush 100 unit/mL injection 5 mL 5 mL, Intracatheter, ONCE PRN, To de-access CVC Impanted port or lock each lumen, Starting on Wed06/07/24 at 1309, PORT: to de-access, instill 5 mL before PORT needle is removed and every 28 days. Apheresis: only for use when patient is NOT under care of apheresis services; after a 10 mL NS flush, lock each lumen of the catheter with 5 mL.Indications:Sickle cell pain crisis (H) $Given 06/07/2024 3:41 PM EMERGENCY SERVICES DIRECTOR 5 mLs HYDROmorphone (DILAUDID) injection 2 mg 2 mg, Intravenous, EVERY 1 HOUR PRN, severe pain, moderate pain, Starting on Wed06/07/24 at 1309, For 3 dosesIndications:Sickle cell pain crisis (H) $Given 06/07/2024 3:28 PM EMERGENCY SERVICES DIRECTOR 2 mg $Given 06/07/2024 2:30 PM EMERGENCY SERVICES DIRECTOR 2 mg $Given 06/07/2024 1:37 PM EMERGENCY SERVICES DIRECTOR 2 mg lactated ringers BOLUS 1,000 mL Intravenous, 1,000 mL, ONCE, at 500 mL/hr, Administer over 2 Hours, On Wed06/07/24 at 1315, For 1 doseIndications:Sickle cell pain crisis (H) $New Bag 06/07/2024 1:37 PM EMERGENCY SERVICES DIRECTOR 1,000 mLs 500 mL/hr documented in this encounter Additional Health Concerns Infection Onset Date Last Indicated Resolved Time Rule Out COVID-19 06/07/2024 06/07/2024 06/07/2024 3:32 PM EMERGENCY SERVICES DIRECTOR documented as of this encounter Care Teams Business Resiliency Manager Relationship Specialty Start Date End Date No Ref-Primary, Physician PCP - General 03/15/24 06/17/24 Mor Ramsey Medical Student 04/03/24 Case Samuel MD [address] [place] [address] 484, [address] [place] [address] Assigned Pediatric Specialist Provider 05/18/24 Juhi Benson, RN Specialty Molder Trimmer Hematology & Oncology 05/29/24 documented as of this encounter
--- OUTSIDE RECORDS SUMMARY | 2024-06-21 22:17 | XMS_ITS | Encounter Summary ---
Author Organization [facility] Address [address] [place] [address]. [place] [address] Care Team Providers Care Asbestos Worker Helper Name Role Phone No Ref-Primary, Physician Primary Care Provider Mor Ramsey Unavailable Unavailable Case Samuel MD Unavailable [phone] Juhi Benson RN Unavailable Unavailable Reason for Visit * Reason Comments Sickle Cell Pain Crisis Chest Pain Encounter Details Date Type Department Care Team (Late st Contact Info) Description 06/05/2024 11:41 AM DENSITY CONTROL PUNCHER - 06/05/2024 3:28 PM [facility] Emergency Room [address] [place] [address] Stiven Madsen MD [address], [place] [address] Star Gifford MD [address] [place], [place] [id number] Sickle cell pain crisis (H) Discharge Disposition: [...] in an abandoned building, in an overnight penitentiary, or couch-surfing.) Yes 04/09/2024 Are you worried [...] on file Legal Sex Female 8:25 AM DENSITY CONTROL PUNCHER Gender Identity Not on file Sexual Orientation Not on file documented as of this encounter Last Filed Vital Signs Vital Sign Reading Time Taken Comments Blood Pressure 114/67 06/05/2024 3:00 PM DENSITY CONTROL PUNCHER Pulse 74 06/05/2024 3:00 PM DENSITY CONTROL PUNCHER Temperature 36.8 C (98.3 F) 06/05/2024 11:37 AM DENSITY CONTROL PUNCHER Respiratory Rate 18 06/05/2024 11:37 AM DENSITY CONTROL PUNCHER Oxygen Saturation 99% 06/05/2024 3:00 PM DENSITY CONTROL PUNCHER Inhaled Oxygen Concentration - - Weight 52.2 kg (115 lb) 06/05/2024 11:37 AM DENSITY CONTROL PUNCHER Height 154.9 cm (5' 1) 06/05/2024 11:37 AM DENSITY CONTROL PUNCHER Body Mass Index 21.73 06/05/2024 11:37 AM DENSITY CONTROL PUNCHER documented in this encounter Discharge Instructions * Discharge Instructions* Stiven Madsen MD - 06/05/2024 12:59 PM DENSITY CONTROL PUNCHER You were seen in the emergency department for a pain crisis. You were given medications and IV fluids. Please continue to follow-up with your established vp software support after this ED visit. ITY CONTROL PUNCHER documented in this encounter Medications at Time [...] as of this encounter ED Notes * Stiven Madsen MD - 06/05/2024 11:54 AM CST EMERGENCY DEPARTMENT ENCOUNTER NAME: Gianna Hernández AGE: [age] year old female DATE OF : 1995 EVALUATION DATE & TIME: 06/05/2024 11:41 AM PCP: No Ref-Primary, Physician ED PROVIDER: Stiven Madsen M.D. Chief Complaint Patient presents with Sickle Cell Pain Crisis Chest Pain FINAL IMPRESSION: 1. Sickle cell pain crisis (H) ED COURSE & MEDICAL DECISION MAKIN29 year old female presents to the Emergency Department for evaluation of pain crisis. Patient witha history of sickle cell disease. She is recently established with hematology locally and has had alarge number of ED visits recently for sickle cell pain and chest pain specifically. She arrives tot emergency department with reported chest pain and sickle cell crisis. Multiple labs and chest imaging from the last couple of weeks were reviewed including negative CT of the chest with pulmonaryangiogram. Patient says her symptoms today are typical of her pain crises and does not have concerns about shortness of breath fever or other change in her condition. Labs from 2 days ago were reviewed. I do not think there is a strong indication to draw more labs today. This is in keeping with hercare plan. She was given IV fluids and medications including IV Dilaudid and Zofran. She was resting more comfortably when reevaluated. Historically she has done fairly well with her 3 doses of IV med ication and subsequent ED discharge. Patient feeling better on recheck. She received her final doseof pain medication and was requesting to be discharged following this. Continued to encourage follow-up with hematology. Patient discharged in stable condition. 11:50 AM I met with the patient, obtained history, performed an initial exam, and discussed optionsand plan for diagnostics and treatment here in the ED. At the conclusion of the encounter I discussed the results of all of the tests and the disposition.The questions were answered. The patient or family acknowledged understanding and was agreeable with the care plan. Medical Decision Making Obtained supplemental history:Supplemental history obtained?: No Reviewed external records: External records reviewed?: Documented in chart and Outpatient Record: ED visits from this month including on 06/03 Care impacted by chronic illness:Documented in Chart Did you consider but not order tests?: Work up considered but not performed and documented in chart, if applicable Did you interpret images independently?: Independent interpretation of ECG and images noted in documentation, when applicable. Consultation discussion with other provider:Did you involve another provider (trial consultant, , pharmacy, etc.)?: No Discharge. No recommendations on prescription strength medication(s). See documentation for any additional details. MIPS: Not Applicable MEDICATIONS GIVEN IN THE EMERGENCY: Medications lactated ringers infusion (0 mLs Intravenous Stopped 06/05/24 6020) ondansetron (ZOFRAN) injection 8 mg (8 mg Intravenous $Given 06/05/24 1237) diphenhydrAMINE (BENADRYL) capsule 25 mg (25 mg Oral $Given 06/05/24 1240) NEW PRESCRIPTIONS STARTED AT TODAY'S ER VISIT Discharge Medication List as of 06/05/2024 3:28 PM HPI Patient information was obtained from: Patient Use of Brick Maker: N/A Gianna Hernández is a 29 year old female with a pertinent history of sickle cell disease, chronicpain syndrome, who presents to this ED via walk-in for evaluation of chest pain and sickle cell pain crisis. Patient reports right-sided chest pain and body aches in the setting of chronic sickle cell pain. She tried to call the infusion center earlier today and was told to come to the ED. She has been seenbefore for her sickle cell and was last seen 2 days ago. She was given LR bolus, Zofran, and Dilaudid twice. Patient notes that she has an appointment with the infusion center to start exchanges on 06/12. She denies fevers, cough, shortness of breath, and any other symptoms. Per chart review, patient was seen at [facility] ED for sickle cell pain crisis on 06/03/24. Patient presented with right sided chest pain with her chronic sickle cell pain. She was given LR bolus, Zofran, Dilaudid x 2. Patient felt improved and was discharged. REVIEW OF SYSTEMS All systems reviewed and negative except as noted in HPI. 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 Current Outpatient Medications Medication Sig Dispense Refill [...] tablet by mouth daily. 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 Recently moved to [place] from [place], [place]. She is 1 of 9 [...] Connections: Socially Integrated (03/28/2024) Received [facility] Social Connections Do you often feel [...] about losing your housing?: No VITALS: BP 114/67 Pulse 74 Temp 98.3 ??F (36.8 ??C) (Temporal) Resp 18 Ht 1.549 m (5' 1) Wt 52.2 kg (115 lb) SpO2 99% BMI 21.73 kg/m?? PHYSICAL EXAM Constitutional: Chronically ill-appearing young female patient, laying in bed, no acute distress HENT: Normocephalic, Atraumatic. Neck Supple. Eyes: EOMI, Conjunctiva normal. Respiratory: Breathing comfortably on room air. Speaks full sentences easily. Lungs clear to ascultation. Cardiovascular: Normal heart rate, Regular rhythm. No peripheral edema. Abdomen: Soft, nontender Musculoskeletal: Good range of motion in all major joints. No major deformities noted. Integument: Warm, Dry. Neurologic: Alert & awake, Normal motor function, Normal sensory function, No focal deficits noted. Psychiatric: Cooperative. Affect appropriate. EKG: Performed at: 06/05/2024 1140 Impression: Sinus rhythm. Nonspecific T wave abnormality. Rate: 88 BPM Rhythm: Sinus rhythm [place]: 81 VT Interval: 148 ms QRS Interval: 82 ms QTc Interval: [address] Changes: None Comparison: When compared with ECG of 05/28/14, No significant change was found. I have independently reviewed and interpreted the EKG(s) documented above. I, Shannon Charles, am serving as a scribe to document services personally performed by Dr. Stiven Madsen, based on my observation and the provider's statements to me. I, Stiven Madsen MD attest that Shannon Charles is acting in a scribe capacity, has observed my performance of the services and has documented them in accordance with my direction. Stiven Madsen M.D. Emergency Medicine [facility] EMERGENCY ROOM [address] [facility] [id number] Dept: [phone] Stiven Madsen MD 06/05/24 1433 Stiven Madsen MD 06/05/24 1938 ITY CONTROL PUNCHER ITY CONTROL PUNCHER * Jose Ramon Sims, SOFIA - 06/05/2024 11:39 AM CST Pt presents with right sided chest pain worse with taking deep breaths. Pt has history of sickle cell. Tried to be seen in infusion clinic but was sent here Triage Assessment (Adult) Row Name 06/05/24 1139 Triage Assessment Airway WDL WDL Respiratory WDL Respiratory WDL WDL Skin Circulation/Temperature WDL Skin Circulation/Temperature WDL WDL Cardiac WDL Cardiac WDL chest pain Chest Pain Assessment Chest Pain Location anterior chest, right Character sharp Peripheral/Neurovascular WDL Peripheral Neurovascular WDL WDL Cognitive/Neuro/Behavioral WDL Cognitive/Neuro/Behavioral WDL WDL ITY CONTROL PUNCHER documented in this encounter Plan of Treatment Not on file documented as of this encounter Goals Goal Patient Goal Type Associated Problems Recent Progress Patient-Stated? Author Pain Management General On track( 025 12:40 PM DENSITY CONTROL PUNCHER) Yes Juhi Benson, RN Note: Goal Statement: [...] Associated Diagnosis Comments ECG 12-LEAD WITH MUSE JEREMIAS HORVATH,WWRocio STAT 06/05/2024 11:40 AM DENSITY CONTROL PUNCHER documented in this encounter Results * ECG 12-LEAD WITH MUSE (LHE) (06/05/2024 11:40 AM DENSITY CONTROL PUNCHER) Systolic Blood Pressure mmHg RADIOLOGY RESULTS Diastolic Blood Pressure mmHg RADIOLOGY RESULTS Ventricular Rate 88 BPM RAD IOLOGY RESULTS Atrial Rate 88 BPM RADIOLOG Y RESULTS VT Interval 148 ms RADIOLOG Y RESULTS QRS Duration 82 ms RADIOLO GY RESULTS QT 388 ms RADIOLOGY RESULTS QTc 469 ms RADIOLOGY RESULTS P [place] 43 degrees RADIOLOGY RESULTS R AXIS 81 degrees RADIOLOGY RESULTS T [place] 57 degrees RADIOLOGY RESULTS Interpretation ECG Sinus rhythm Nonspecific T wave abnormality Prolonged QT Abnormal ECG When compared with ECG of 03-Jun-2024 15:24, No significant change was found Confirmed by SEE ED PROVIDER NOTE FOR, ECG INTERPRETATION ([id number]), deputy editor in chief Ariadna Shabazz ([id number]) on 06/05/2024 12:02:47 PM RADIOLOGY RESULTS 06/05/2024 11:4 0 AM DENSITY CONTROL PUNCHER 06/05/2024 12:02 PM DENSITY CONTROL PUNCHER us Stiven Madsen MD ECG ORDERABLES Edited Result - Final RADIOLOGY RESULTS documented in this encounter Visit Diagnoses Diagnosis 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 documented in this encounter Administered Medications Inactive Administered Medications - up to 3 most recent administrations Medication Order MAR Action Action Date Dose Rate Site diphenhydrAMINE (BENADRYL) capsule 25 mg 25 mg, Oral, ONCE PRN, itching, Starting on 06/05/24 at 1154, For 1 dose $Given 06/05/2024 12:40 PM DENSITY CONTROL PUNCHER 25 mg heparin lock flush 10 unit/mL injection 5-10 mL 5-10 mL, Intracatheter, EVERY 1 HOUR PRN, post meds or blood draw, other, to lock each port in dual implanted port, Starting on Wed06/05/24 at 1502, Flush each port lumen with the sodium chloride 0.9% flush followed by the heparin flush. MAX dose: 5 mL of heparin for each lumen $Given 06/05/2024 3:20 PM DENSITY CONTROL PUNCHER 5 mLs HYDROmorphone (DILAUDID) injection 2 mg 2 mg, Intravenous, EVERY 1 HOUR PRN, moderate pain, severe pain, Starting on Wed06/05/24 at 1153 $Given 06/05/2024 2:56 PM DENSITY CONTROL PUNCHER 2 mg $Given 06/05/2024 1:54 PM DENSITY CONTROL PUNCHER 2 mg $Given 06/05/2024 12:40 PM DENSITY CONTROL PUNCHER 2 mg lactated ringers infusion at 500 mL/hr, Intravenous, CONTINUOUS, Starting on Wed06/05/24 at 1200, Until Wed06/05/24 at 1359 $New Bag 06/05/2024 12:39 PM DENSITY CONTROL PUNCHER 500 mL/hr ondansetron (ZOFRAN) injection 8 mg 8 mg, Intravenous, ONCE, Administer over 2-5 Minutes, On Wed06/05/24 at 1200, For 1 dose $Given 06/05/2024 12:39 PM DENSITY CONTROL PUNCHER 8 mg documented in this encounter Active and Recently Administered Medications Times are shown in DENSITY CONTROL PUNCHER. Scheduled Medication Order 06/03/2024 06/04/2024 06/05/2024 ondansetron (ZOFRAN) injection 8 mg (COMPLETED) 8 mg, Intravenous, ONCE, Administer over 2-5 Minutes, On Wed06/05/24 at 1200, For 1 dose 1239 ($Given - Provi nas: Shane Santos RN) Continuous Medication Order 06/03/2024 06/04/2024 06/05/2024 lactated ringers infusion at 500 mL/hr, Intravenous, CONTINUOUS, Starting on Wed06/05/24 at 1200, Until Wed06/05/24 at 1359 1239 ($New Bag - Pro vider: Shane Santos RN)1455 (Stopped - Provider: Shane Santos RN) PRN Medication Order 06/03/2024 06/04/2024 06/05/2024 diphenhydrAMINE (BENADRYL) capsule 25 mg (COMPLETED) 25 mg, Oral, ONCE PRN, itching, Starting on Wed06/05/24 at 1154, For 1 dose 1240 ($Given - Provi nas: Shane Santos RN) heparin lock flush 10 unit/mL injection 5-10 mL 5-10 mL, Intracatheter, EVERY 1 HOUR PRN, post meds or blood draw, other, to lock each port in dual implanted port, Starting on Wed06/05/24 at 1502, Flush each port lumen with the sodium chloride 0.9% flush followed by the heparin flush. MAX dose: 5 mL of heparin for each lumen 1520 ($Given - Provi nas: Shane Santos RN) HYDROmorphone (DILAUDID) injection 2 mg 2 mg, Intravenous, EVERY 1 HOUR PRN, moderate pain, severe pain, Starting on Wed06/05/24 at 1153 1240 ($Given - Provi nas: Shane Santos RN)1354 ($Given - Provider: Shane Santos RN)1456 ($Given - Provider: Shane Santos RN) documented in this encounter Care Teams Asbestos Worker Helper Relationship Specialty Start Date End Date No Ref-Primary, Physician PCP - General 03/15/24 06/17/24 Mor Ramsey Medical Student 04/03/24 Case Samuel MD [address] [place] [address] [address] [place] [address] Assigned Pediatric Specialist Provider 05/18/24 Juhi Benson, SOFIA Specialty Truck Striker Hematology & Oncology 05/29/24 documented as of this encounter
--- OUTSIDE RECORDS SUMMARY | 2024-06-21 22:17 | XMS_ITS | Encounter Summary ---
Author Organization [facility] Address [address] [place] [address] Care Team Providers Care Electrical Instrument Technician Name Role Phone No Ref-Primary, Physician Primary Care Provider Mor Ramsey Unavailable Unavailable Reason for Visit * Reason Onset Date Comments Refill Request 05/08/2024 Encounter Details Date Type Department Care Team ([facility] st Contact Info) Description 05/08/2024 MyC Refill [facility] [address] [place] [address] Case Samuel MD [address] [facility] [address] [place] [address] Refill Request Social History Tobacco Use Types [...] on file Legal Sex Female 8:25 AM DISTRIBUTION ACCOUNTING CLERK Gender Identity Not on file Sexual Orientation Not on file documented as of this encounter Miscellaneous Notes * Telephone Encounter - Hawa Gordon RN - 05/09/2024 3:31 PM CST Images from the original note were not included. Narcotic Refill Request Medication(s) requested: Hydromorphone Person Requesting Refill:Gianna What pain is the medication treating: back and chest, went to ED last night. How is the medication being taken?:tries to take 4 tablets in a 24hour period Does pt have enough for today? none Is pain being adequately controlled on the current regimen?: okay, requires intermittent IVF/Pain at times. Experiencing any side effects from medication?: denies Date of most recent appointment: 05/01/2024 Dr. samuel Any No Show Visits:05/01/2024 Dr samuel Next appointment: 05/29/2024 Dr Samuel Last fill date and by whom: Dr. Samuel on 05/01/2024 SUPERVISORY CIVIL ENGINEER Reviewed: Send to provider: Dr. Samuel and RNCC RIBUTION ACCOUNTING CLERK documented in this encounter Plan of Treatment Not on file documented as of this encounter Goals Goal Patient Goal Type Associated Problems Recent Progress Patient-Stated? Author Pain Management General On track( 025 12:40 PM DISTRIBUTION ACCOUNTING CLERK) Yes Juhi Benson, RN Note: Goal Statement: [...] disease without crisis documented in this encounter Additional Health Concerns Infection Onset Date Last Indicated Resolved Time Rule Out COVID-19 05/08/2024 05/08/2024 05/08/2024 8:18 PM DISTRIBUTION ACCOUNTING CLERK documented as of this encounter Care Teams Electrical Instrument Technician Relationship Specialty Start Date End Date No Ref-Primary, Physician PCP - General 03/15/24 06/17/24 Mor Ramsey Medical Student 04/03/24 documented as of this encounter
--- OUTSIDE RECORDS SUMMARY | 2024-06-21 22:17 | XMS_ITS | Encounter Summary ---
Author Organization [facility] Address [address] [place] [address]. [place] [address] Care Team Providers Care Jet Dyeing Machine Operator Name Role Phone No Ref-Primary, Physician Primary Care Provider Mor Ramsey Unavailable Unavailable Case Samuel MD Unavailable [phone] Juhi Benson RN Unavailable Unavailable Encounter Details Date Type Department Care Team (Latest Contact Info) Description 06/05/2024 Travel Social History Tobacco Use Types Packs/Day [...] on file Legal Sex Female 8:25 AM TRANSMISSION AND PROTECTION ENGINEER Gender Identity Not on file Sexual Orientation Not on file documented as of this encounter Plan of Treatment Not on file documented as of this encounter Goals Goal Patient Goal Type Associated Problems Recent Progress Patient-Stated? Author Pain Management General On track( 025 12:40 PM TRANSMISSION AND PROTECTION ENGINEER) Yes Juhi Benson RN Note: Goal Statement: [...] on filedocumented in this encounter Care Teams Jet Dyeing Machine Operator Relationship Specialty Start Date End Date No Ref-Primary, Physician PCP - General 03/15/24 06/17/24 Mor Ramsey Medical Student 04/03/24 Case Samuel MD [address] [place] [address] [address], [address] [place] [address] Assigned Pediatric Specialist Provider 05/18/24 Juhi Benson RN Specialty Fine Chemicals Operator Hematology & Oncology 05/29/24 documented as of this encounter"
--- OUTSIDE RECORDS SUMMARY | 2024-06-21 22:17 | XMS_ITS | Encounter Summary ---
Author Organization [place] Address [address] [place] [address]. [place] [address] Care Team Providers Care Technical Support Technician Name Role Phone No Ref-Primary, Physician Primary Care Provider Mor Ramsey Unavailable Unavailable Reason for Visit * Reason Comments Chest Pain Sickle Cell Pain Crisis Encounter Details Date Type Department Care Team (Late st Contact Info) Description 05/06/2024 6:34 PM DIRECTOR LIFE - 05/06/2024 10:33 PM [facility] Emergency [facility] Emergency Room Formerly [facility] [place] [address] Noel Pinzon MD [address] [place] [address] Sickle cell pain crisis (H) Discharge Disposition: [...] on file Legal Sex Female 8:25 AM DIRECTOR LIFE Gender Identity Not on file Sexual Orientation Not on file documented as of this encounter Last Filed Vital Signs Vital Sign Reading Time Taken Comments Blood Pressure 119/63 05/06/2024 10:28 PM DIRECTOR LIFE Pulse 95 05/06/2024 10:28 PM DIRECT[facility] LIFE Temperature 37.2 C (98.9 F) 05/06/2024 6:32 PM DIRECTOR LIFE Respiratory Rate 29 05/06/2024 10:28 PM DIRECT[facility] LIFE Oxygen Saturation 99% 05/06/2024 10:28 PM DIRECTOR LIFE Inhaled Oxygen Concentration - - Weight 50.8 kg (112 lb) 05/06/2024 6:32 PM DIRECTOR LIFE Height - - Body Mass Index 20.49 05/05/2024 10:56 AM DIRECTOR LIFE documented in this encounter Discharge Instructions * Discharge Instructions* Noel Pinzon MD - 05/06/2024 9:22 PM DIRECTOR LIFE Continue home pain meds as needed. Follow up with trimmer climber for ongoing management. Return for uncontrolled pain, fevers or other new concerns. CT[facility] * Attachments The following attachments cannot be sent through Care Everywhere. * Sickle Cell Crisis (Icelandic) documented in this encounter Medications at Time [...] 6 hours as needed for severe pain. 20 tablet 05/01/2024 documented as of this encounter ED Notes * Chayo Ny RN - 05/06/2024 10:30 PM CST Discharge instructions discussed with pt. All questions answered. AVS handed to pt. Pt reports s/o is on the way to pick her up. [facility] LIFE * Noel Piznon MD - 05/06/2024 6:34 PM CST Emergency Department Encounter Evaluation Date & Time: 05/06/2024 6:34 PM CHIEF COMPLAINT: Chest Pain and Sickle Cell Pain Crisis Triage Note:Pt returns with right sided chest pain. Hx of sickle cell. Took her dose of pain meds around 1530. ED COURSE & MEDICAL DECISION MAKING: Pt with a history of sickle cell disease, seen multiple times in ED for pain crises symptoms, seeing hematology now as she moved here from [place] recently. 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 Pt seen here yesterday for left sided chest pain with overall stable workup, did not suspect acute chest syndrome. Pt now having right lateral chest pain. No real cough, fevers. No leg pain/swelling. Pt nontoxicappearing, but in pain and tachy. She care care plan in place for pain management. She tried home dilaudid without relief. Will order meds/IVF per care plan. Unable to give toradol due to allergy. I don't feel repeat CXR or CTA chest warranted as CXR yesterday and CTA chest day before with right lung nodules seen on both imaging studies. Doubt acute chest syndrome based on history/exam/presentation and recent evaluation. ED Course as of 05/06/24 2216 Sat May 06, 2024 184 I introduced myself to the patient, obtained patient history, performed a physical exam, and discussed plan for ED workup including potential diagnostic laboratory/imaging studies and interventions. 2014 hsTrop again negative. Bili baseline. Retics similar to previous. 2038 CBC similar to previous. 2040 I went to recheck the patient and update on plan of care. Feeling somewhat better, but itching. She's reassured by labs, does not feel it's acute chest syndrome either. HR 80s, remains afebrile,nontoxic appearing. 2212 Pt re-evaluated, feeling improved. Will get final dose of IV dilaudid, then home, continued outpatient follow up. Medical Decision Making History: Supplemental history from: N/A External Record(s) reviewed: Outpatient Record: [facility] 05/03/24 Work Up: Chart documentation includes differential considered and any EKGs or imaging independently interpreted by provider, where specified. In additional to work up documented, I considered the following work up: Documented in chart, if applicable. External consultation: Discussion of management with another provider: Documented in chart, if applicable Complicating factors: Care impacted by chronic illness: Chronic Pain and Other: Sickle Cell Disease Care affected by social determinants of health: Access to Medical Care Disposition considerations: Discharge. I recommended the patient continue their current prescription strength medication(s): dilaudid. I considered admission, but ultimately discharged patient after reassuring evaluation, improvement, outpatient plan. Not Applicable At the conclusion of the encounter I discussed the results of all the tests and the disposition. The questions were answered. The patient or family acknowledged understanding and was agreeable with the care plan. MEDICATIONS GIVEN IN THE EMERGENCY DEPARTMENT: Medications HYDROmorphone (DILAUDID) injection 2 mg (2 mg Intravenous $Given 05/06/242046) lactated ringers BOLUS 1,000 mL (0 mLs Intravenous Stopped 05/06/242130) diphenhydrAMINE (BENADRYL) injection 25 mg (25 mg Intravenous $Given 05/06/242046) NEW PRESCRIPTIONS STARTED AT TODAY'S ED VISIT: New Prescriptions No medications on file HPI HPI Gianna Hernández is a 29 year old female with a pertinent history of sickle cell disease who presents to this ED via walk-in for evaluation of chest pain and sickle cell pain crisis. Patient reports chest pain that has shifted from the left side of her chest to the right. It onset this morning and is sharp and pressured. Her pain is a 9/10. The cold is exerting her pain, as she recently moved here from [place]. She denies any radiating factors.She took her home pain regimen (Dilaudid, Tylenol, folic acid, hydroxyurea) with no relief. Her sickle cell pain typically manifests in her back, and she does report back pain today. She has seen a trimmer climber and is scheduled for further workup and port placement. She has a history of a clot in her hand two years ago. She is not on blood thinners. Also reports ahistory of endocarditis in the beginning of 2022. Reports a mild dry cough. Otherwise, denies fever, vomiting, diarrhea, lower extremity edema, or abdominal pain. Patient frequently presents to ER for evaluation of sickle cell pain crisis. Seen 05/03/24 at [facility] ED. Pain not controlled with oral Dilaudid. CT PE unremarkable. No acute chest. Given opioid IV medication and fluids. Discharged. 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) Pulmonary embolism (H) 11/2022 Retinopathy, vascular Stroke (H) Past Surgical History: Procedure Laterality Date ARTHROPLASTY KNEE Left details unclear TONSILLECTOMY & ADENOIDECTOMY Bilateral Family History Problem Relation Age of Onset Sickle Cell Trait Daughter Social History Tobacco Use Smoking status: Never Smokeless tobacco: Never Substance Use Topics Alcohol use: Not Currently Drug use: Never folic acid (FOLVITE) 1 MG tablet HYDROmorphone (DILAUDID) 2 MG tablet hydroxyurea (HYDREA) 500 MG capsule multivitamin, therapeutic (THERA-VIT) TABS tablet Physical Exam Vitals: BP 119/75 Pulse 83 Temp 98.9 ??F (37.2 ??C) Resp 18 Wt 50.8 kg (112 lb) SpO2 100% BMI 20.49 kg/m?? PHYSICAL EXAM: Physical Exam Vitals and nursing note reviewed. Constitutional: General: She is not in acute distress. Appearance: Normal appearance. HENT: Head: Normocephalic and atraumatic. Nose: Nose normal. Mouth/Throat: Mouth: Mucous membranes are moist. Eyes: Pupils: Pupils are equal, round, and reactive to light. Neck: Vascular: No JVD. Cardiovascular: Rate and Rhythm: Regular rhythm. Tachycardia present. Pulses: Normal pulses. Radial pulses are 2+ on the right side and 2+ on the left side. Dorsalis pedis pulses are 2+ on the right side and 2+ on the left side. Pulmonary: Effort: Pulmonary effort is normal. No respiratory distress. Breath sounds: Normal breath sounds. Chest: Chest wall: Tenderness (mild, right lateral) present. Abdominal: Palpations: Abdomen is soft. Tenderness: There [...] ED Arrival to Time of ED Departure BASIC METABOLIC PANEL - Abnormal Result Value Sodium 140 Potassium 3.9 Chloride 106 Carbon Dioxide (CO2) 20 (*) Anion Gap 14 Urea Nitrogen 6.1 Creatinine 0.69 GFR Estimate >90 Calcium 9.8 Glucose 73 RETICULOCYTE COUNT - Abnormal % Reticulocyte 24.0 (*) Absolute Reticulocyte 0.696 (*) HEPATIC FUNCTION PANEL - Abnormal Protein Total 9.0 (*) Albumin 4.9 Bilirubin Total 2.1 (*) Alkaline Phosphatase 131 AST 51 (*) ALT 37 Bilirubin Direct 0.50 (*) CBC WITH PLATELETS AND DIFFERENTIAL - Abnormal WBC Count 17.4 (*) RBC Count 2.90 (*) Hemoglobin 9.4 (*) Hematocrit 26.9 (*) MCV 93 MCH 32.4 MCHC 34.9 RDW 23.8 (*) Platelet Count 556 (*) % Neutrophils 61 % Lymphocytes 25 % Monocytes 12 % Eosinophils 1 % Basophils 1 % Immature Granulocytes 1 NRBCs per 100 WBC 2 (*) Absolute Neutrophils 10.6 (*) Absolute Lymphocytes 4.3 Absolute Monocytes 2.0 (*) Absolute Eosinophils 0.1 Absolute Basophils 0.2 Absolute Immature Granulocytes 0.2 Absolute NRBCs 0.4 RBC AND PLATELET MORPHOLOGY - Abnormal RBC Morphology Confirmed RBC Indices Platelet Assessment Value: Automated Count Confirmed. Platelet morphology is normal. Polychromasia Slight (*) Sickle Cells Moderate (*) Target Cells Slight (*) TROPONIN T, HIGH SENSITIVITY - Normal Troponin T, High Sensitivity <6 RADIOLOGY: No orders to display ECG: NSR, rate 97, normal intervals, no acute ischemia I have independently reviewed and interpreted the EKG(s) documented above PROCEDURES: Procedures: NA FINAL IMPRESSION: ICD-10-CM 1. Sickle cell pain crisis (H) D57.00 0 minutes of critical care time I, Sabrina Ford, am serving as a scribe to document services personally performed by Dr. Noel Pinzon, based on my observations and the provider's statements to me. I, Noel Pinzon, DO attest that Sabrina Ford is acting in a scribe capacity, has observed my performance of the services and has documented them in accordance with my direction. Noel Pinzon, DO Emergency Medicine [facility] EMERGENCY ROOM 05/06/2024 6:34 PM Noel Pinzon MD 05/06/24 2425 CTOR LIFE * Yanely Avendano RN - 05/06/2024 6:33 PM CST Pt returns with right sided chest pain. Hx of sickle cell. Took her dose of pain meds around 1530. Triage Assessment (Adult) Row Name 05/06/24 2813 Triage Assessment Airway WDL WDL Respiratory WDL Respiratory WDL WDL Skin Circulation/Temperature WDL Skin Circulation/Temperature WDL WDL Cardiac WDL Cardiac WDL chest pain Chest Pain Assessment Chest Pain Location anterior chest, right Peripheral/Neurovascular WDL Peripheral Neurovascular WDL WDL Cognitive/Neuro/Behavioral WDL Cognitive/Neuro/Behavioral WDL WDL CTOR LIFE documented in this encounter Plan of Treatment Not on file documented as of this encounter Goals Goal Patient Goal Type Associated Problems Recent Progress Patient-Stated? Author Pain Management General On track( 025 12:40 PM DIRECTOR LIFE) Yes Juhi Benson, SOFIA Note: Goal Statement: [...] Comments ECG 12-LEAD WITH MUSE SJN,SJO,WWH STAT 05/06/2024 7:51 PM DIRECTOR LIFE RBC AND PLATELET MORPHOLOGY STAT 05/06/2024 7:43 PM DIRECTOR LIFE CBC WITH PLATELETS AND DIFFERENTIAL STAT 05/06/2024 7:43 PM DIRECTOR LIFE TROPONIN T, HIGH SENSITIVITY STAT 05/06/2024 7:43 PM DIRECTOR LIFE CBC WITH PLATELETS & DIFFERENTIAL STAT 05/06/2024 7:43 PM DIRECTOR LIFE RETICULOCYTE COUNT STAT 05/06/2024 7: 43 PM DIRECTOR LIFE HEPATIC FUNCTION PANEL STAT 05/06/2024 7:43 PM DIRECTOR LIFE BASIC METABOLIC PANEL STAT 05/06/2024 7:43 PM DIRECTOR LIFE documented in this encounter Results * ECG 12-LEAD WITH MUSE (LHE) (05/06/2024 7:51 PM DIRECTOR LIFE) Systolic Blood Pressure mmHg RADIOLOGY RESULTS Diastolic Blood Pressure mmHg RADIOLOGY RESULTS Ventricular Rate 97 BPM RAD IOLOGY RESULTS Atrial Rate 97 BPM RADIOLOG Y RESULTS KS Interval 136 ms RADIOLOG Y RESULTS QRS Duration 78 ms RADIOLO GY RESULTS QT 346 ms RADIOLOGY RESULTS QTc 439 ms RADIOLOGY RESULTS P Zwolle 76 degrees RADIOLOGY RESULTS R AXIS 86 degrees RADIOLOGY RESULTS T Zwolle 54 degrees RADIOLOGY RESULTS Interpretation ECG Sinus rhythm Nonspecific T wave abnormality Abnormal ECG When compared with ECG of 05-May-2024 11:03, No significant change was found Confirmed by SEE ED PROVIDER NOTE FOR, ECG INTERPRETATION ([id number]), online content editor SELMA GARRISON ([id number]) on 05/06/2024 8:09:58 PM RADIOLOGY RESULTS 05/06/2024 7:51 PM DIRECTOR LIFE 05/06/2024 8:09 PM DIRECTOR LIFE Noel Pinzon MD ECG ORDERABLES Edited Resul t - Final RADIOLOGY RESULTS * (ABNORMAL) RBC and Platelet Morphology (05/06/2024 7:43 PM DIRECTOR LIFE) RBC Morphology Confirmed RBC Indices 05/06/2024 8:38 PM DIRECTOR LIFE [facility] Platelet Assessment Automated Count Confirmed. Platelet morphology is normal. Automated Count Confirmed. Platelet morphology is normal. JARET 05/06/2024 8:38 PM DIRECTOR LIFE [facility] Polychromasia Slight(A) None Seen JARET 05/06/2024 8:38 PM DIRECTOR LIFE [facility] Sickle Cells Moderate(A) None Seen JARET 05/06/2024 8:38 PM DIRECTOR LIFE [facility] Target Cells Slight(A) None Seen JARET 05/06/2024 8:38 PM DIRECTOR LIFE [facility] Blood BLOOD SPECIMEN / Unknown Venipuncture / Unknown 05/06/2024 7:43 PM DIRECTOR LIFE 05/06/2024 7:49 PM DIRECTOR LIFE Noel Pinzon MD LAB - BLOOD ORDERABLES Final Result [facility] [address] [place] [address], [facility] * (ABNORMAL) CBC with platelets and differential (05/06/2024 7:43 PM DIRECTOR LIFE) WBC Count 17.4(H) 4.0 - 11.0 10e3/uL 05/06/2024 8:38 PM [facility] RBC Count 2.90(L) 3.80 - 5.20 10e6/uL 05/06/2024 8:38 PM [facility] Hemoglobin 9.4(L) 11.7 - 15.7 g/dL 05/06/2024 8:38 PM [facility] Hematocrit 26.9(L) 35.0 - 47.0 % 05/06/2024 8:38 PM [facility] MCV 93 78 - 100 fL 05/06/2024 8:38 PM [facility] MCH 32.4 26.5 - 33.0 pg 05/06/2024 8:38 PM [facility] MCHC 34.9 31.5 - 36.5 g/dL 05/06/2024 8:38 PM [facility] RDW 23.8(H) 10.0 - 15.0 % 05/06/2024 8:38 PM [facility] Platelet Count 556(H) 150 - 450 10e3/uL 05/06/2024 8:38 PM [facility] % Neutrophils 61 % 05/06/2024 8:38 PM [facility] % Lymphocytes 25 % 05/06/2024 8:38 PM [facility] % Monocytes 12 % 05/06/2024 8:38 PM [facility] % Eosinophils 1 % 05/06/2024 8:38 PM [facility] % Basophils 1 % 05/06/2024 8:38 PM [facility] % Immature Granulocytes 1 % 05/06/2024 8:38 PM [facility] NRBCs per 100 WBC 2(H) <1 /100 025 8:38 PM [facility] Absolute Neutrophils 10.6(H) 1.6 - 8.3 10e3/uL 05/06/2024 8:38 PM [facility] Absolute Lymphocytes 4.3 0.8 - 5.3 10e3/uL 05/06/2024 8:38 PM [facility] Absolute Monocytes 2.0(H) 0.0 - 1.3 10e3/uL 05/06/2024 8:38 PM [facility] Absolute Eosinophils 0.1 0.0 - 0.7 10e3/uL 05/06/2024 8:38 PM [facility] Absolute Basophils 0.2 0.0 - 0.2 10e3/uL 05/06/2024 8:38 PM [facility] Absolute Immature Granulocytes 0.2 <=0.4 10e3/uL 05/06/2024 8:38 PM [facility] Absolute NRBCs 0.4 10e3/uL 05/06/2024 8:38 PM [facility] Blood BLOOD SPECIMEN / Unknown Venipuncture / Unknown 05/06/2024 7:43 PM DIRECTOR LIFE 05/06/2024 7:49 PM [facility] us Noel Pinzon MD LAB - BLOOD ORDERABLES Final Result [facility] [address] [place], [place] [address] * (ABNORMAL) Hepatic function panel (05/06/2024 7:43 PM DIRECTOR LIFE) Protein Total 9.0(H) 6.4 - 8.3 g/dL 05/06/2024 8:12 PM [facility] Albumin 4.9 3.5 - 5.2 g/dL 05/06/2024 8:12 PM [facility] Bilirubin Total 2.1(H) <=1.2 mg/dL 05/06/2024 8:12 PM [facility] Alkaline Phosphatase 131 40 - 150 U/L 05/06/2024 8:12 PM [facility] AST 51(H) 0 - 45 U/L 05/06/2024 8:12 PM [facility] ALT 37 0 - 50 U/L 05/06/2024 8:12 PM [facility] Bilirubin Direct 0.50(H) 0.00 - 0.30 mg/dL 05/06/2024 8:12 PM [facility] Blood BLOOD SPECIMEN / Unknown Venipuncture / Unknown 05/06/2024 7:43 PM DIRECT[facility] LIFE 05/06/2024 7:49 PM DIRECT[facility] LIFE us Noel Pinzon MD LAB - BLOOD ORDERABLES Final Result [facility] [address] [place] [address] [place] [address], [facility] * (ABNORMAL) Reticulocyte count (05/06/2024 7:43 PM DIRECTOR LIFE) % Reticulocyte 24.0(H) 0.5 - 2.0 % 05/06/2024 7:54 PM DIRECTOR LIFE [facility] Absolute Reticulocyte 0.696(H) 0.025 - 0.095 10e6/uL 05/06/2024 7:54 PM DIRECTOR LIFE [facility] Blood BLOOD SPECIMEN / Unknown Venipuncture / Unknown 05/06/2024 7:43 PM DIRECTOR LIFE 05/06/2024 7:49 PM DIRECTOR LIFE us Noel Pinzon MD LAB - BLOOD ORDERABLES Final Result Performing Organization Address [facility]/ZIP Co de Phone Number [facility] [address] [place] [address] [place] [address], [facility] * Troponin T, High Sensitivity (05/06/2024 7:43 PM DIRECTOR LIFE) Troponin T, High Sensitivity <6 <=14 ng/L 05/06/2024 8:12 PM DIRECTOR LIFE [facility] Comment: Either a High Sensitivity Troponin [...] BLOOD SPECIMEN / Unknown Venipuncture / Unknown 05/06/2024 7:43 PM DIRECTOR LIFE 05/06/2024 7:49 PM DIRECTOR LIFE us Noel Pinzon MD LAB - BLOOD ORDERABLES Final Result [facility] [address] [place] [address], [facility] * (ABNORMAL) Basic metabolic panel (05/06/2024 7:43 PM DIRECTOR LIFE) Sodium 140 135 - 145 mmol/L 05/06/2024 8:12 PM [facility] Potassium 3.9 3.4 - 5.3 mmol/L 05/06/2024 8:12 PM [facility] Chloride 106 98 - 107 mmol/L 05/06/2024 8:12 PM [facility] Carbon Dioxide (CO2) 20(L) 22 - 29 mmol/L 05/06/2024 8:12 PM [facility] Anion Gap 14 7 - 15 mmol/L 05/06/2024 8:12 PM [facility] Urea Nitrogen 6.1 6.0 - 20.0 mg/dL 05/06/2024 8:12 PM [facility] Creatinine 0.69 0.51 - 0.95 mg/dL 05/06/2024 8:12 PM [facility] GFR Estimate >90 >60 mL/min/1.7 3m2 05/06/2024 8:12 PM [facility] Comment:eGFR calculated usin 2020 CKD-EPI equation. Calcium 9.8 8.8 - 10.4 mg/dL 05/06/2024 8:12 PM [facility] Comment:Reference intervals for this test were updated on 11/09/2023 to reflect our healthy population more accurately. There may be differences in the flagging of prior results with similar values performed with this method. Those prior results can be interpreted in the context of the updated reference intervals. Glucose 73 70 - 99 mg/dL 05/06/2024 8:12 PM [facility] Blood BLOOD SPECIMEN / Unknown Venipuncture / Unknown 05/06/2024 7:43 PM DIRECTOR LIFE 05/06/2024 7:49 PM DIRECTOR LIFE us Noel Pinzon MD LAB - BLOOD ORDERABLES Final Result [facility] [address] [place] [address], [facility] documented in this encounter Visit Diagnoses Diagnosis 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 documented in this encounter Administered Medications Inactive Administered Medications - up to 3 most recent administrations Medication Order MAR Action Action Date Dose Rate Site diphenhydrAMINE (BENADRYL) injection 25 mg 25 mg, Intravenous, ONCE, On 05/06/24 at 2100, For 1 dose $Given 05/06/2024 8:47 PM DIRECTOR LIFE 25 mg HYDROmorphone (DILAUDID) injection 2 mg 2 mg, Intravenous, EVERY 1 HOUR PRN, severe pain, moderate pain, Starting on 05/06/24 at 1849, For 3 doses $Given 05/06/2024 10:25 PM DIRECTOR LIFE 2 mg $Given 05/06/2024 8:47 PM DIRECTOR LIFE 2 mg $Given 05/06/2024 7:43 PM DIRECTOR LIFE 2 mg lactated ringers BOLUS 1,000 mL Intravenous, 1,000 mL, ONCE, On 05/06/24 at 1900, For 1 dose $New Bag 05/06/2024 7:43 PM DIRECTOR LIFE 1,000 mLs documented in this encounter Active and Recently Administered Medications Times are shown in DIRECTOR LIFE. Scheduled Medication Order 05/04/2024 05/05/2024 05/06/2024 diphenhydrAMINE (BENADRYL) injection 25 mg (COMPLETED) 25 mg, Intravenous, ONCE, On 05/06/24 at 2100, For 1 dose 2046 ($Given - Provi nas: Chayo Ny RN) lactated ringers BOLUS 1,000 mL (COMPLETED) Intravenous, 1,000 mL, ONCE, On 05/06/24 at 1900, For 1 dose 1942 ($New Bag - Pro vider: Chayo Ny RN)2130 (Stopped - Provider: Chayo Ny RN) PRN Medication Order 05/04/2024 05/05/2024 05/06/2024 HYDROmorphone (DILAUDID) injection 2 mg (COMPLETED) 2 mg, Intravenous, EVERY 1 HOUR PRN, severe pain, moderate pain, Starting on 05/06/24 at 1849, For 3 doses 1943 ($Given - Provi nas: Chayo Ny RN)2047 ($Given - Provider: Chayo Ny RN)2225 ($Given - Provider: Chayo Ny RN) documented in this encounter Care Teams Technical Support Technician Relationship Specialty Start Date End Date No Ref-Primary, Physician PCP - General 03/15/24 06/17/24 Mor Ramsey Medical Student 04/03/24 documented as of this encounter
--- OUTSIDE RECORDS SUMMARY | 2024-06-21 22:17 | XMS_ITS | Encounter Summary ---
Author Organization [place] Address [facility] [place] [address] Care Team Providers Care Poultry Slaughterer Name Role Phone No Ref-Primary, Physician Primary Care Provider Mor Ramsey Unavailable Unavailable Encounter Details Date Type Department Care Team (Latest Contact Info) Description 05/08/2024 Travel Social History Tobacco Use Types Packs/Day [...] in an abandoned building, in an overnight [place] [facility], or couch-surfing.) Yes 04/09/2024 Are you worried [...] on file Legal Sex Female 8:25 AM YARN WEIGHER Gender Identity Not on file Sexual Orientation Not on file documented as of this encounter Plan of Treatment Not on file documented as of this encounter Goals Goal Patient Goal Type Associated Problems Recent Progress Patient-Stated? Author Pain Management General On track( 025 12:40 PM YARN WEIGHER) Yes Juhi Benson, RN Note: Goal Statement: [...] Out COVID-19 05/08/2024 05/08/2024 05/08/2024 8:18 PM YARN WEIGHER documented as of this encounter Care Teams Poultry Slaughterer Relationship Specialty Start Date End Date No Ref-Primary, Physician PCP - General 03/15/24 06/17/24 Mor Ramsey Medical Student 04/03/24 documented as of this encounter
--- OUTSIDE RECORDS SUMMARY | 2024-06-21 22:17 | XMS_ITS | Encounter Summary ---
Author Organization [place] Address [address] [place] [id number] Care Team Providers Care Show Dog Trainer Name Role Phone No Ref-Primary, Physician Primary Care Provider Mor Ramsey Unavailable Unavailable Case Samuel MD Unavailable [phone] Juhi Benson RN Unavailable Unavailable Reason for Visit * Reason Onset Date Comments Refill Request 06/05/2024 Encounter Details Date Type Department Care Team (Late st Contact Info) Description 06/05/2024 MyC Refill [facility] [address] [place] [address] Case Samuel MD [address] [place] [address], [address] [place] [address] Refill Request Social History Tobacco [...] in an abandoned building, in an overnight snf, or couch-surfing.) Yes 04/09/2024 Are you worried [...] on file Legal 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 Narcotic Refill Request Medication(s) requested: hydromorphone Person Requesting Refill:Gianna (pt) What pain is the medication treating: sickle cell pain, felt today mostly in back, lwegs. How is the medication being taken?:4mg every 6hours Does pt have enough for today? No took last one last night Is pain being adequately controlled on the current regimen?: no, needs ED/IVF/Pain appointments Experiencing any side effects from medication?: denies Date of most recent appointment: 05/29/2024 Dr. Samuel Any No Show Visits:none recently Next appointment: 06/13/2024 Tatiana Cohen CNP Last fill date and by whom: Dr. Samuel LASER SYSTEMS ENGINEER Reviewed: Yes Send to provider: Routed to dr. Samuel and ESTEVAN Reynaga TRONICS WARFARE TECHNICIAN documented in this encounter Plan of Treatment Not on file documented as of this encounter Goals Goal Patient Goal Type Associated Problems Recent Progress Patient-Stated? Author Pain Management General On track( 025 12:40 PM ELECTRONICS WARFARE TECHNICIAN) Yes Juhi Benson, SOFIA Note: Goal Statement: [...] crisis documented in this encounter Care Teams Show Dog Trainer Relationship Specialty Start Date End Date No Ref-Primary, Physician PCP - General 03/15/24 06/17/24 Mor Ramsey Medical Student 04/03/24 Case Samuel MD [address] [place] [address], [address] [place] [address] Assigned Pediatric Specialist Provider 05/18/24 Juhi Benson, SOFIA Specialty It Application Administrator Hematology & Oncology 05/29/24 documented as of this encounter
--- OUTSIDE RECORDS SUMMARY | 2024-06-21 22:17 | XMS_ITS | Clinical Summary ---
Author Organization [facility] Address [address] [place] [id number] Care Team Providers Care Tungsten Tender Name Role Phone Roxy Mor Unavailable Unavailable Case Samuel MD Unavailable [phone] Juhi Benson RN Unavailable Unavailable Veronica Joseph MD Primary Care Provider [phone] Allergies Active Allergy Reactions Criticality Noted Date Comments Acetaminophen Hives 05/16/2019 Banana Anaphylaxis,Hives,S welling High 06/25/2019 Other Reaction(s): Throat Swelling/Closing Blood Transfusion Related (Informational Only) Other (See Comments) High 05/29/2024 Patient with a history of a hematologic condition and has a history of a clinically significant antibody against RBC antigens. A delay in compatible RBCs may occur. History of Anti-C and Nonspecific antibodies. Cashew Nut Oil Hives 03/11/2024 Ketorolac Anaphylaxis,Hives High 04/23/2021 Latex Hives,Rash High 09/15/2022 Morphine Hives,Other (See Comments),Unknown High 05/22/2019 Seizure. Other opioids tolerated. 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 30 tablet 11 5 Active hydroxyurea (HYDREA) 500 MG capsuleIndicati ons:History of transfusion,Hb- SS disease without crisis (H) Take 2 capsules (1,000 mg) by mouth 2 times daily 120 capsule 5 Active multivitamin, therapeutic (THERA-VIT) TABS tabletIndicatio ns:History of transfusion,Hb- SS disease without crisis (H) Take 1 tablet by mouth daily. 30 tablet 11 5 Active FLUoxetine (PROZAC) 10 MG capsuleIndicati ons:Severe episode of recurrent major depressive disorder, without psychotic features (H) Take 1 capsule (10 mg) by mouth daily. 40 capsule 1 5 Active naloxone (NARCAN) 4 MG/0.1ML nasal spray [place] 1 spray (4 mg) into one nostril alternating nostrils as needed for opioid reversal (for opiate overdose if not breathing and unconscious. have your family member watch video on how to use/read information sheet). every 2-3 minutes until assistance arrives 2 each 5 Active ibuprofen (ADVIL/MOTRIN) 200 MG tablet Take 200 mg by mouth every 6 hours as needed for pain. Active diphenhydrAMINE (BENADRYL) 25 MG tablet Take 1-2 tablets by mouth every 6 hours as needed for itching. Active EPINEPHrine (ANY BX GENERIC EQUIV) 0.3 MG/0.3ML injection 2-pack Inject 0.3 mg into the muscle as needed for anaphylaxis. May repeat one time in 5-15 minutes if response to initial dose is inadequate. 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 40 tablet 5 025 Discontin ued(Reord er (No AVS)) cefpodoxime (VANTIN) 200 MG tabletIndicatio ns:Pneumonia of right lower lobe due to infectious organism Take 1 tablet (200 mg) by mouth 2 times daily for 3 days. 6 tablet 5 025 Discontin ued(Stop at Discharge ) Active Problems Patient Care Coordination No te Formatting of this note migh t be different from the original. EMERGENCY CARE PLAN Please note that you do not need to have labs done every time she comes in just for pain. There are no laboratory tests for pain and in the [...] to mental health as of early May 2024 DO NOT TRANSFUSE WITHOUT DISCUSSING WITH HEMATOLOGY ATTENDING (available 16/11). TRANSFUSION IS RISKY DUE TO RISK OF ALLOIMMUNIZATION AGAINST RBC ANTIGENS AND IRON OVERLOAD. INDICATIONS FOR TRANSFUSION ARE ACUTE STROKE AND ACUTE CHEST SYNDROME (hypoxia plus infiltrate, not chest pain). 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/PA: Lizzie Genotype: SS Acute Pain Crisis Treatment: (note that Toradol is listed as an allergy) ER/Acute Care/Infusion Clinic: Hydromorphone 2 mg IVP/SC Q1H X 3 doses LR 500 ml/hr x 2 hours (1 L total) Other: Zofran 8 mg IV Inpatient: Opioid: Hydromorphone 2 mg IV Q3H scheduled--titrate within 24-48 hours LR at maintenance rate x 1-2 days Other Medications: Zofran, Oral Benadryl for anxiety Supportive Care: Docusate, Senna PRN Home Pain Medications: Dilaudid 4 mg PO, Tylenol Baseline Hemoglobin: 8 g/dl Hydroxyurea use: Yes H/O blood transfusions: Yes H/O Transfusion Reactions: no Antibodies: Yes H/O Acute Chest Syndrome: Yes Last episode: late 2023 ICU/intubation: once H/O Stroke: Yes H/O VTE: Yes (PE) H/O Cholecystectomy or Splenectomy: No H/O Asthma, Pulm HTN, AVN, Leg Ulcers, Nephropathy, Retinopathy, etc: AVN (left hip), retinopathy (right) Problem Noted Date Diagnosed Date Acute chest pain 06/12/2024 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 History of transfusion 05/02/2024 Gallstones 05/02/2024 Avascular necrosis of bone of left hip Sickle cell pain crisis 04/08/2024 Encounters Date Type Department Care Team Description 06/16/2024 4:46 PM DIRECTOR DATA ARCHITECTURE - 06/20/2024 11:00 AM DIRECTOR DATA ARCHITECTURE Hospital Encounter Formerly [facility] 7C Med Surg [address] [place] [address] Abimael Schofield MD Pal, Suman, MD Duffy, Briar, MD Sickle cell pain crisis (H) Discharge Disposition: Home or Self Care 06/16/2024 Travel 06/15/[address] [phone] Case Samuel MD Refill Request 06/12/2024 6:38 PM DIRECTOR DATA ARCHITECTURE - 06/15/2024 10:48 AM DIRECTOR DATA ARCHITECTURE Hospital Encounter Formerly [facility] Emergency Department [address] [place] [address] Abdelrahman Goddard MD Beacom, Evan, DO Duffy, Briar, MD 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); Acute chest pain; Sickle cell pain crisis (H); Pneumonia of right lower lobe due to infectious organism Discharge Disposition: Home or Self Care 06/12/2024 Travel 06/11/2024 9:02 PM DIRECTOR DATA ARCHITECTURE - 06/12/2024 1:57 AM DIRECTOR DATA ARCHITECTURE Emergency [facility] Emergency Room [address] [place] [phone] Iliana Weber MD Sickle cell pain crisis (H) Discharge Disposition: Home or Self Care 06/11/2024 Travel 06/09/2024 11:30 AM DIRECTOR DATA ARCHITECTURE Infusion Therapy Visit [facility] [address] [place] [phone] Case Samuel MD Sickle cell pain crisis (H) (Primary Dx) 06/09/2024 Travel 06/07/2024 1:30 PM DIRECTOR DATA ARCHITECTURE Infusion Therapy Visit [facility] Advanced Treatment [address] [phone] Case Samuel MD Fever (Primary Dx); Sickle cell pain crisis (H) 06/07/2024 10:00 AM DIRECTOR DATA ARCHITECTURE - 06/07/2024 10:45 AM DIRECTOR DATA ARCHITECTURE Emergency [facility] Emergency Room [address] [place] [phone] Bernabe Farley MD Chest pain, unspecified type; Fever, unspecified fever cause; Left against medical advice Discharge Disposition: Home or Self Care 06/07/2024 Travel 06/06/2024 9:41 AM DIRECTOR DATA ARCHITECTURE - 06/06/2024 1:29 PM DIRECTOR DATA ARCHITECTURE Emergency [facility] Emergency Room [address] [place] [phone] Marilia Summers MD Sickle cell pain crisis (H) Discharge Disposition: Home or Self Care 06/05/2024 11:41 AM DIRECTOR DATA ARCHITECTURE - 06/05/2024 3:28 PM DIRECTOR DATA ARCHITECTURE Emergency [facility] Emergency Room [address] [place] [phone] Stiven Madsen MD Palm, Steven J, MD Sickle cell pain crisis (H) Discharge Disposition: Home or Self Care 06/05/2024 Travel 06/05/2024 Velvet Refjelani [facility] [address] [place] [phone] Case Samuel MD Refill Request 06/03/2024 3:22 PM DIRECTOR DATA ARCHITECTURE - 06/03/2024 5:30 PM DIRECTOR DATA ARCHITECTURE Emergency [facility] Emergency Room [address] [place] [phone] Jennifer Bell MD Sickle cell pain crisis (H) Discharge Disposition: Home or Self Care 06/03/2024 Travel 06/01/2024 11:41 PM DIRECTOR DATA ARCHITECTURE - 06/02/2024 2:35 AM DIRECTOR DATA ARCHITECTURE Emergency [facility] Emergency Room [address] [place] [phone] Noel Pinzon MD Sickle cell pain crisis (H) Discharge Disposition: Home or Self Care 06/01/2024 Travel 05/31/2024 9:56 PM DIRECTOR DATA ARCHITECTURE - 06/01/2024 12:46 AM DIRECTOR DATA ARCHITECTURE Emergency [facility] Emergency Room [address] [place] [phone] Carley Riggins MD Sickle cell pain crisis (H) Discharge Disposition: Home or Self Care 05/31/2024 Travel 05/30/2024 8:00 AM DIRECTOR DATA ARCHITECTURE Infusion Therapy Visit [facility] [address] [phone] Case Samuel MD 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); History of transfusion; Sickle cell pain crisis (H) 05/29/2024 11:30 AM DIRECTOR DATA ARCHITECTURE Oncology Visit [facility] Cancer [address] [phone] Case Samuel MD Severe episode of recurrent major depressive disorder, 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); History of transfusion; Sickle cell pain crisis (H); 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) 05/29/2024 Orders Only [facility] [address] [phone] Juhi Benson RN Sickle cell pain crisis (H) (Primary Dx); 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) 05/29/2024 Travel 05/28/2024 11:56 PM DIRECTOR DATA ARCHITECTURE - 05/29/2024 3:54 AM [facility] Emergency Room [address] [place] [phone] Lenin Smith MD Sickle cell disease with crisis (H) Discharge Disposition: Home or Self Care 05/28/2024 Travel 05/27/2024 11:58 AM DIRECTOR DATA ARCHITECTURE - 05/27/2024 6:07 PM [facility] Emergency Room [address] [place] [phone] Blas Mcclellan MD [address], Sickle cell disease with crisis (H) Discharge Disposition: Home or Self Care 05/27/2024 Travel 05/25/2024 10:53 AM DIRECTOR DATA ARCHITECTURE - 05/25/2024 4:00 PM [facility] Interventional Radiology [address] [place] [phone] Jaswinder Cooper MD 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) Discharge Disposition: Home or Self Care 05/23/2024 9:03 PM DIRECTOR DATA ARCHITECTURE - 05/23/2024 11:37 PM [facility] Emergency Room [address] [place] [phone] Marilia Summers MD Sickle cell pain crisis (H); Leukocytosis, unspecified type; Left-sided chest wall pain Discharge Disposition: Home or Self Care 05/23/2024 Travel 05/22/2024 3:27 PM DIRECTOR DATA ARCHITECTURE - 05/22/2024 6:55 PM [facility] Emergency Room [address] [place] [phone] Bernabe Farley MD Sickle cell pain crisis (H) Discharge Disposition: Home or Self Care 05/22/2024 [facility] [address] [place] [phone] Case Samuel MD Refill Request 05/22/2024 Travel 05/22/2024 MyC Medical Advice Former[facility] Interventional Radiology [address] [place] [phone] Yadi Mahan RN 05/20/2024 7:30 AM DIRECTOR DATA ARCHITECTURE - 05/20/2024 11:15 AM [facility] Emergency [facility] Emergency Room [address] [place] [phone] Stiven Madsen MD Sickle cell pain crisis (H) Discharge Disposition: Home or Self Care 05/20/2024 Travel 05/19/2024 2:10 AM DIRECTOR DATA ARCHITECTURE - 05/19/2024 6:06 AM [facility] Emergency [facility] Emergency Room [address] [place] [phone] Marilia Summers MD Sickle cell disease with crisis (H) Discharge Disposition: Home or Self Care 05/19/2024 Travel 05/16/2024 9:41 PM DIRECTOR DATA ARCHITECTURE - 05/17/2024 12:53 AM [facility] Emergency [facility] Emergency Room [address] [place] [phone] Guille Davis DO Sickle cell pain crisis (H) Discharge Disposition: Home or Self Care 05/16/2024 Travel 05/14/2024 10:07 PM DIRECTOR DATA ARCHITECTURE - 05/15/2024 12:14 AM [facility] Emergency [facility] Emergency Room [address] [place] [phone] Marguerite Ponce PA-C Sickle cell pain crisis (H) Discharge Disposition: Home or Self Care 05/14/2024 Travel 05/13/2024 3:56 PM DIRECTOR DATA ARCHITECTURE - 05/13/2024 7:56 PM [facility] Emergency [facility] Emergency Room [address] [place] [phone] Shaheen Unger MD Sickle cell pain crisis (H) Discharge Disposition: Home or Self Care 05/13/2024 Travel 05/08/2024 3:10 PM DIRECTOR DATA ARCHITECTURE - 05/08/2024 7:54 PM DIRECTOR DATA ARCHITECTURE Emergency [facility] Emergency Room [address] [place] [phone] Polly Alcaraz MD Sickle cell pain crisis (H) Discharge Disposition: Home or Self Care 05/08/2024 Travel 05/08/2024 MyC Refill [facility] [address] [phone] Case Samuel MD Refill Request 05/06/2024 6:34 PM DIRECTOR DATA ARCHITECTURE - 05/06/2024 10:33 PM DIRECTOR DATA ARCHITECTURE Emergency [facility] Emergency Room [address] [place] [phone] Noel Pinzon MD Sickle cell pain crisis (H) Discharge Disposition: Home or Self Care 05/06/2024 Travel 05/05/2024 11:10 AM DIRECTOR DATA ARCHITECTURE - 05/05/2024 2:25 PM DIRECTOR DATA ARCHITECTURE Emergency [facility] Emergency Room [address] [place] [phone] Star Gifford MD Sickle cell pain crisis (H) Discharge Disposition: Home or Self Care 05/05/2024 Travel 05/02/2024 8:23 AM DIRECTOR DATA ARCHITECTURE - 05/02/2024 8:54 AM DIRECTOR DATA ARCHITECTURE Emergency [facility] Emergency Department [address] [place] [phone] Andres Tejada MD Discharge Disposition: Left Without Being Seen 05/02/2024 Telephone [facility] [place] [phone] [place] Emergency [facility] [address] [place] [phone] No Ref-Primary, Physician Call to schedule (Ed follow up) 05/02/2024 Travel 05/01/2024 11:00 AM DIRECTOR DATA ARCHITECTURE Oncology Visit [facility] [address] [phone] Case Samuel MD History of transfusion (Primary Dx); 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); Gallstones; Avascular necrosis of bone of left hip (H); 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, with sickle cell retinopathy, unspecified laterality, unspecified whether proliferative (H); Sickle cell pain crisis (H) 05/01/2024 [facility] [address] [place] [phone] Juhi Benson RN 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) 05/01/2024 Travel 04/28/2024 12:41 AM DIRECTOR DATA ARCHITECTURE - 04/28/2024 3:59 AM [facility] Emergency [facility] Emergency Room [address] [place] [phone] Sandy Joya MD Sickle cell pain crisis (H) Discharge Disposition: Home or Self Care 04/28/2024 Travel 04/26/2024 11:53 PM DIRECTOR DATA ARCHITECTURE - 04/27/2024 2:14 AM [facility] Emergency [facility] Emergency Room [address] [place] [phone] Sandy Joya MD Sickle cell pain crisis (H) Discharge Disposition: Home or Self Care 04/26/2024 Travel 04/19/2024 1:48 AM DIRECTOR DATA ARCHITECTURE - 04/19/2024 4:28 AM [facility] Emergency [facility] Emergency Room [address] [place] [phone] Juan Rodriguez MD Sickle cell pain crisis (H); Left hip pain; Nondisplaced articular fracture of head of left femur, initial encounter for closed fracture (H) Discharge Disposition: Home or Self Care 04/19/2024 Travel 04/08/2024 9:38 PM DIRECTOR DATA ARCHITECTURE - 04/10/2024 10:16 AM [facility] Hospital [facility] [address] [place] [phone] Iliana Weber MD Huynh, Ryan K, MD Raddawi, Kenan, MD Sickle cell pain crisis (H) Discharge Disposition: Home or Self Care 04/08/2024 Travel 04/05/2024 11:32 PM DIRECTOR DATA ARCHITECTURE - 04/06/2024 3:04 AM [facility] Emergency [facility] Emergency Room [address] [place] [phone] Guille Davis DO Sickle cell pain crisis (H); Pulmonary nodules Discharge Disposition: Home or Self Care 04/05/2024 Travel 03/29/2024 PRE VISIT [facility] [address] [place] [phone] Provider, Generic External Data *-*INCOMING RECORDS*-* (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 (H) [D57.1]) 03/28/2024 Transcribe Orders GENERIC EXTERNAL DATA DEPARTMENT Provider, Generic External Data 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 (H) (Primary Dx) 03/27/2024 Telephone [facility] [place] [phone] Hector Crabtree, SOFIA Results 03/26/2024 1:08 AM DIRECTOR DATA ARCHITECTURE - 03/26/2024 3:10 AM [facility] Emergency [facility] Emergency Room [address] [place] [phone] Sandy Joya MD Sickle cell disease with crisis (H); Pulmonary nodules Discharge Disposition: Home or Self Care 03/25/2024 4:02 AM DIRECTOR DATA ARCHITECTURE - 03/25/2024 6:31 AM [facility] Emergency [facility] Emergency Room [address] [place] [phone] Sandy Joya MD Sickle cell disease with crisis (H) Discharge Disposition: Home or Self Care 03/25/2024 Travel from Last 3 Months Immunizations Name Administration Dates Next Due COVID-19 MONOVALENT 12+ (Pfizer) 02/27/2021,01/24 DTAP (<7y) 11/20/1999, 9,11/13/1995,10/05,03/08/1995,1994,1994 ,1994,1994 Flu, Unspecified 03/03/2023,03/07/2008 HEPATITIS A (PEDS 12M-18Y) 10/03/2008,04/13/2007 HIB, Unspecified 11/13/1995, 5,1994,10/17,1994,1994 HPV Quadrivalent 01/24/2009, 9,03/28/2008,12/01,06/16/2007,04/13/2007 HepA-Peds, Unspecified 08/31/2008,11/18/2007 HepB, Unspecified 06/07/1995,1994,10/14/18 95 Hepatitis B, Peds 03/28/2008, 5,1994,04/11 Influenza (H1N1) 05/30/2009 Influenza (IIV3) PF 02/04/2010,02/08/2007,2004 Influenza Vaccine >6 months,quad, PF 01/15/2023, 04/30/2022,03/14/2020 Influenza, Split Virus, Triv alent, Pf (Fluzone\Fluarix) 02/09/2012,04/13/2011 MMR 07/18/1998,03/08/1995 Meningococcal ACWY (Menactra ) 04/13/2011,10/10/2007,01/18/2007 Polio, Unspecified 07/18/1998, 5,1994,10/14 Poliovirus, inactivated (IPV) 11/20/1999 ,11/13/1995,1994,08/01,1994 TDAP (Adacel,Boostrix) 01/18/2007 Varicella 11/18/2007, 7,01/14/1998,01/02 Family History Medical History Relation Comments Sickle Cell Trait Daughter Relation Status Comments Daughter Alive Social History Tobacco Use Types Packs/Day Years Used Date Smoking Tobacco: Never Smokeless Tobacco: Never Tobacco Cessation:Counseling Given: Not Answered Alcohol Use Standard Drinks/Week Comments Not Currently [...] in an abandoned building, in an overnight mcfp, or couch-surfing.) Yes 06/20/2024 Are you worried [...] file Legal Sex Female 8:25 AM DIRECTOR DATA ARCHITECTURE Gender Identity Not on file Sexual Orientation Not on file Last Filed Vital Signs Vital Sign Reading Time Taken Comments Blood Pressure 106/62 06/20/2024 6:00 AM DIRECTOR DATA ARCHITECTURE Pulse 78 06/19/2024 2:25 PM DIRECTOR DATA ARCHITECTURE Temperature 36.7 C (98 F) 06/20/2024 6:00 AM DIRECTOR DATA ARCHITECTURE Respiratory Rate 18 06/20/2024 6:00 AM DIRECTOR DATA ARCHITECTURE Oxygen Saturation 99% 06/20/2024 6:00 AM DIRECTOR DATA ARCHITECTURE Inhaled Oxygen Concentration - - Weight 52.2 kg (115 lb) 06/11/2024 8:58 PM DIRECTOR DATA ARCHITECTURE Height 154.9 cm (5' 1) 06/11/2024 8:58 PM DIRECTOR DATA ARCHITECTURE Body Mass Index 21.73 06/11/2024 8:58 PM DIRECTOR DATA ARCHITECTURE Plan of Treatment Health Maintenance Due Date Last Done Comments ADVANCE CARE PLANNING 1994 ANNUAL REVIEW OF HM ORDERS 1994 DEPRESSION ACTION PLAN 1994 PHQ-9 1994 YEARLY PREVENTIVE VISIT 1997 Pneumococcal Vaccine: Pediat rics (0 to 5 Years) and At-Risk Patients (6 to 49 Years) (1 of 2 - PCV) 2013 ZOSTER IMMUNIZATION (1 of 2) 2013 MENINGITIS IMMUNIZATION (3 - Risk 2-dose series) 04/13/2016 04/13/2011, 10/10/2007, 01/18/2007 DTAP/TDAP/TD IMMUNIZATION (7 - Td or Tdap) 01/18/2017 01/18/2007, 11/20/1999, 07/18/1998, Additional history exists COVID-19 Vaccine (7 - 2023-2 5 season) 2023 03/26/2023, 05/21/2021, 02/27/2021, Additional history exists INFLUENZA VACCINE (#1) 2023 , 01/15/2023, 04/30/2022, Additional history exists PAP 01/06/2025 01/06/2022 HEPATITIS B IMMUNIZATION Completed 008, 06/07/1995, 1994, Additional history exists HPV IMMUNIZATION Completed 01/24/2009, 01/2009, 03/28/2008, Additional history exists HIV SCREENING Completed 11/29/2022, 07/27/2020 HEPATITIS C SCREENING Completed 12/10/2022 , 11/29/2022, 07/27/2020 Goals Goal Patient Goal Type Associated Problems Recent Progress Patient-Stated? Author Pain Management General On track( 025 12:40 PM DIRECTOR DATA ARCHITECTURE) Yes Juhi Benson, RN Note: Goal Statement: [...] there are 2-3 days of medication remaining. Medical Devices Implanted Type Area Liner Machine Operator Helper Device Identifier Shelf Expiration Date Model / Serial / Lot Bard 9.6 Powerflow Apheresis Iv Port-05/25/2024 Implanted:Qty: 1 on 05/25/2024 by Myron Michel MD Port Right: Chest Wall BARD 08/23/2024 [id number] / / [id number] Description:Right chest Wall Apheresis Port 9.6FR (Power) 6frt Smartport-05/25 Implanted:Qty: 1 on 05/25/2024 by Myron Michel MD Port Left: Chest Wall [employer] 09/23/2026 [id number] / / [id number] Description:6FR SL SmartPort (Power - 300psi max) Procedures Procedure Name Priority Date/Time Associated Diagnosis Comments CBC WITH PLATELETS & DIFFERENTIAL STAT 06/20/2024 5:48 AM DIRECTOR DATA ARCHITECTURE CBC WITH PLATELETS AND DIFFERENTIAL STAT 06/20/2024 5:48 AM DIRECTOR DATA ARCHITECTURE RETICULOCYTE COUNT Routine 06/20/2024 5: 48 AM DIRECTOR DATA ARCHITECTURE COMPREHENSIVE METABOLIC PANEL Routine 06/20/2024 5:48 AM DIRECTOR DATA ARCHITECTURE LACTATE DEHYDROGENASE Routine 06/20/2024 5:48 AM DIRECTOR DATA ARCHITECTURE CBC WITH PLATELETS & DIFFERENTIAL STAT 06/19/2024 9:30 AM DIRECTOR DATA ARCHITECTURE RBC AND PLATELET MORPHOLOGY STAT 06/19/2024 9:30 AM DIRECTOR DATA ARCHITECTURE CBC WITH PLATELETS AND DIFFERENTIAL STAT 06/19/2024 9:30 AM DIRECTOR DATA ARCHITECTURE RETICULOCYTE COUNT STAT 06/19/2024 9: 30 AM DIRECTOR DATA ARCHITECTURE COMPREHENSIVE METABOLIC PANEL STAT 06/19/2024 9:30 AM DIRECTOR DATA ARCHITECTURE LACTATE DEHYDROGENASE STAT 06/19/2024 9:30 AM DIRECTOR DATA ARCHITECTURE PLATELET COUNT STAT 06/19/2024 12:17 AM DIRECTOR DATA ARCHITECTURE CREATININE STAT 06/19/2024 12:17 AM DIRECTOR DATA ARCHITECTURE CBC WITH PLATELETS & DIFFERENTIAL STAT 06/18/2024 8:24 AM DIRECTOR DATA ARCHITECTURE DIFFERENTIAL STAT 06/18/2024 8:24 AM DIRECTOR DATA ARCHITECTURE CBC WITH PLATELETS AND DIFFERENTIAL STAT 06/18/2024 8:24 AM DIRECTOR DATA ARCHITECTURE RETICULOCYTE COUNT STAT 06/18/2024 8: 24 AM DIRECTOR DATA ARCHITECTURE COMPREHENSIVE METABOLIC PANEL STAT 06/18/2024 8:24 AM DIRECTOR DATA ARCHITECTURE LACTATE DEHYDROGENASE STAT 06/18/2024 8:24 AM DIRECTOR DATA ARCHITECTURE ROUTINE UA WITH MICROSCOPIC REFLEX TO CULTURE STAT 06/17/2024 1:11 PM DIRECTOR DATA ARCHITECTURE TRANSFUSE RED BLOOD CELLS (UNIT) STAT 06/17/2024 10:26 AM DIRECTOR DATA ARCHITECTURE PREPARE RED BLOOD CELLS (UNIT) STAT 06/17/2024 9:12 AM DIRECTOR DATA ARCHITECTURE TRANSFERRIN Add-On 06/17/2024 6:16 AM DIRECTOR DATA ARCHITECTURE IRON AND IRON BINDING CAPACITY Add-On 06/17/2024 6:16 AM DIRECTOR DATA ARCHITECTURE CBC WITH PLATELETS STAT 06/17/2024 6: 16 AM DIRECTOR DATA ARCHITECTURE BASIC METABOLIC PANEL STAT 06/17/2024 6:16 AM DIRECTOR DATA ARCHITECTURE TROPONIN T, HIGH SENSITIVITY STAT 06/16/2024 9:33 PM DIRECTOR DATA ARCHITECTURE XR CHEST 2 VIEWS STAT 06/16/2024 6:09 PM DIRECTOR DATA ARCHITECTURE ABO/RH TYPE AND SCREEN STAT 5:37 PM DIRECTOR DATA ARCHITECTURE CBC WITH PLATELETS & DIFFERENTIAL STAT 06/16/2024 5:37 PM DIRECTOR DATA ARCHITECTURE BLOOD CULTURE STAT 06/16/2024 5:37 PM DIRECTOR DATA ARCHITECTURE TYPE AND SCREEN, ADULT STAT 5:37 PM DIRECTOR DATA ARCHITECTURE RBC AND PLATELET MORPHOLOGY STAT 06/16/2024 5:37 PM DIRECTOR DATA ARCHITECTURE CBC WITH PLATELETS AND DIFFERENTIAL STAT 06/16/2024 5:37 PM DIRECTOR DATA ARCHITECTURE PROLACTIN STAT 06/16/2024 5:37 PM DIRECTOR DATA ARCHITECTURE TROPONIN T, HIGH SENSITIVITY STAT 06/16/2024 5:37 PM DIRECTOR DATA ARCHITECTURE COMPREHENSIVE METABOLIC PANEL STAT 06/16/2024 5:37 PM DIRECTOR DATA ARCHITECTURE EKG 12-LEAD, TRACING ONLY STAT 06/16/2024 4:55 PM DIRECTOR DATA ARCHITECTURE CBC WITH PLATELETS & DIFFERENTIAL STAT 06/15/2024 6:09 AM DIRECTOR DATA ARCHITECTURE CBC WITH PLATELETS AND DIFFERENTIAL STAT 06/15/2024 6:09 AM DIRECTOR DATA ARCHITECTURE BASIC METABOLIC PANEL STAT 06/15/2024 6:09 AM DIRECTOR DATA ARCHITECTURE XR CHEST PORT 1 VIEW STAT 06/14/2024 8:46 AM DIRECTOR DATA ARCHITECTURE CBC WITH PLATELETS STAT 06/14/2024 7: 08 AM DIRECTOR DATA ARCHITECTURE BASIC METABOLIC PANEL STAT 06/14/2024 7:08 AM DIRECTOR DATA ARCHITECTURE CBC WITH PLATELETS STAT 06/13/2024 6: 32 PM DIRECTOR DATA ARCHITECTURE CBC WITH PLATELETS & DIFFERENTIAL STAT 06/13/2024 6:00 AM DIRECTOR DATA ARCHITECTURE RBC AND PLATELET MORPHOLOGY STAT 06/13/2024 6:00 AM DIRECTOR DATA ARCHITECTURE CBC WITH PLATELETS AND DIFFERENTIAL STAT 06/13/2024 6:00 AM DIRECTOR DATA ARCHITECTURE BASIC METABOLIC PANEL STAT 06/13/2024 5:59 AM DIRECTOR DATA ARCHITECTURE RESPIRATORY PANEL PCR STAT 06/12/2024 9:34 PM DIRECTOR DATA ARCHITECTURE BLOOD CULTURE STAT 06/12/2024 8:46 PM DIRECTOR DATA ARCHITECTURE BLOOD CULTURE STAT 06/12/2024 8:46 PM DIRECTOR DATA ARCHITECTURE XR CHEST 2 VIEWS STAT 06/12/2024 7:38 PM DIRECTOR DATA ARCHITECTURE ABO/RH TYPE AND SCREEN Add-On 7:17 PM DIRECTOR DATA ARCHITECTURE CBC WITH PLATELETS & DIFFERENTIAL STAT 06/12/2024 7:17 PM DIRECTOR DATA ARCHITECTURE TYPE AND SCREEN, ADULT Routine 7:17 PM DIRECTOR DATA ARCHITECTURE RBC AND PLATELET MORPHOLOGY STAT 06/12/2024 7:17 PM DIRECTOR DATA ARCHITECTURE CBC WITH PLATELETS AND DIFFERENTIAL STAT 06/12/2024 7:17 PM DIRECTOR DATA ARCHITECTURE BLOOD GAS VENOUS STAT 06/12/2024 7:17 PM DIRECTOR DATA ARCHITECTURE TROPONIN T, HIGH SENSITIVITY STAT 06/12/2024 7:17 PM DIRECTOR DATA ARCHITECTURE BASIC METABOLIC PANEL STAT 06/12/2024 7:17 PM DIRECTOR DATA ARCHITECTURE INR STAT 06/12/2024 7:17 PM DIRECTOR DATA ARCHITECTURE EKG 12-LEAD, TRACING ONLY STAT 06/12/2024 6:37 PM DIRECTOR DATA ARCHITECTURE ECG 12-LEAD WITH MUSE SJN,SJO,WWH STAT 06/11/2024 9:04 PM DIRECTOR DATA ARCHITECTURE CBC WITH PLATELETS & DIFFERENTIAL Routine 06/07/2024 1:15 PM DIRECTOR DATA ARCHITECTURE Sickle cell pain crisis (H) RBC AND PLATELET MORPHOLOGY Routine 06/07/2024 1:15 PM DIRECTOR DATA ARCHITECTURE Sickle cell pain crisis (H) INFLUENZA A/B, RSV AND SARS-COV2 PCR Routine 06/07/2024 1:15 PM DIRECTOR DATA ARCHITECTURE Fever CBC WITH PLATELETS AND DIFFERENTIAL Routine 06/07/2024 1:15 PM DIRECTOR DATA ARCHITECTURE Sickle cell pain crisis (H) BASIC METABOLIC PANEL Routine 06/07/2024 1:15 PM DIRECTOR DATA ARCHITECTURE Sickle cell pain crisis (H) ECG 12-LEAD WITH MUSE SJN,SJO,WWH STAT 06/05/2024 11:40 AM DIRECTOR DATA ARCHITECTURE ECG 12-LEAD WITH MUSE SJN,SJO,WWH STAT 06/03/2024 3:24 PM DIRECTOR DATA ARCHITECTURE CBC WITH PLATELETS & DIFFERENTIAL STAT 05/31/2024 10:21 PM DIRECTOR DATA ARCHITECTURE RBC AND PLATELET MORPHOLOGY STAT 05/31/2024 10:21 PM DIRECTOR DATA ARCHITECTURE CBC WITH PLATELETS AND DIFFERENTIAL STAT 05/31/2024 10:21 PM DIRECTOR DATA ARCHITECTURE BASIC METABOLIC PANEL STAT 05/31/2024 10:21 PM DIRECTOR DATA ARCHITECTURE RETICULOCYTE COUNT STAT 05/31/2024 10:21 PM DIRECTOR DATA ARCHITECTURE TRANSFUSE RED BLOOD CELLS (UNIT) Routine 05/30/2024 8:28 AM DIRECTOR DATA ARCHITECTURE 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) History of transfusion PREPARE RED BLOOD CELLS (UNIT) Routine 05/29/2024 5:12 PM DIRECTOR DATA ARCHITECTURE ABO/RH TYPE AND SCREEN Routine 11:23 AM DIRECTOR DATA ARCHITECTURE History of transfusion CBC WITH PLATELETS & DIFFERENTIAL Routine 05/29/2024 11:23 AM DIRECTOR DATA ARCHITECTURE BILL ONLY- CAPILLARY ELECTROPHORESIS Routine 05/29/2024 11:23 AM DIRECTOR DATA ARCHITECTURE BILL ONLY- SICKLE SOLUBILITY BILL Routine 05/29/2024 11:23 AM DIRECTOR DATA ARCHITECTURE URINE CULTURE Routine 05/29/2024 11:23 AM DIRECTOR DATA ARCHITECTURE TYPE AND SCREEN, ADULT Add-On 11:23 AM DIRECTOR DATA ARCHITECTURE History of transfusion RBC AND PLATELET MORPHOLOGY Routine 05/29/2024 11:23 AM DIRECTOR DATA ARCHITECTURE CBC WITH PLATELETS AND DIFFERENTIAL Routine 05/29/2024 11:23 AM DIRECTOR DATA ARCHITECTURE GENOTYPE RED BLOOD CELL Routine 05/29/2024 11:23 AM DIRECTOR DATA ARCHITECTURE History of transfusion HEMOGLOBIN EVAL REFLEX TO ELP OR RBC SOLUBILITY Routine 05/29/2024 11:23 AM DIRECTOR DATA ARCHITECTURE FERRITIN Routine 05/29/2024 11:23 AM DIRECTOR DATA ARCHITECTURE ROUTINE UA WITH MICROSCOPIC REFLEX TO CULTURE Routine 05/29/2024 11:23 AM DIRECTOR DATA ARCHITECTURE COMPREHENSIVE METABOLIC PANEL Routine 05/29/2024 11:23 AM DIRECTOR DATA ARCHITECTURE RETICULOCYTE COUNT Routine 05/29/2024 11:23 AM DIRECTOR DATA ARCHITECTURE CBC WITH PLATELETS & DIFFERENTIAL STAT 05/29/2024 12:53 AM DIRECTOR DATA ARCHITECTURE MANUAL DIFFERENTIAL STAT 05/29/2024 12:53 AM DIRECTOR DATA ARCHITECTURE CBC WITH PLATELETS AND DIFFERENTIAL STAT 05/29/2024 12:53 AM DIRECTOR DATA ARCHITECTURE RETICULOCYTE COUNT STAT 05/29/2024 12:53 AM DIRECTOR DATA ARCHITECTURE CBC WITH PLATELETS & DIFFERENTIAL STAT 05/27/2024 3:13 PM DIRECTOR DATA ARCHITECTURE MANUAL DIFFERENTIAL STAT 05/27/2024 3 :13 PM DIRECTOR DATA ARCHITECTURE CBC WITH PLATELETS AND DIFFERENTIAL STAT 05/27/2024 3:13 PM DIRECTOR DATA ARCHITECTURE RETICULOCYTE COUNT STAT 05/27/2024 3: 13 PM DIRECTOR DATA ARCHITECTURE XR CHEST 2 VIEWS STAT 05/27/2024 2:57 PM DIRECTOR DATA ARCHITECTURE COMPREHENSIVE METABOLIC PANEL STAT 05/27/2024 2:30 PM DIRECTOR DATA ARCHITECTURE ECG 12-LEAD WITH MUSE SJN,SJO,WWH STAT 05/27/2024 12:12 PM DIRECTOR DATA ARCHITECTURE IR PROCEDURE NOTE Routine 05/25/2024 2:5 4 PM DIRECTOR DATA ARCHITECTURE IR CHEST PORT PLACEMENT > 5 YRS OF AGE Routine: Next available opening 05/25/2024 2:47 PM DIRECTOR DATA ARCHITECTURE 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) IR CHEST PORT PLACEMENT > 5 YRS OF AGE Priority: 1-2 Weeks 05/25/2024 2:47 PM DIRECTOR DATA ARCHITECTURE 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) HCG QUALITATIVE URINE Routine 05/25/2024 12:[address]CH[address] CT CHEST PULMONARY EMBOLISM W CONTRAST STAT 05/23/2024 9:33 PM DIRECTOR DATA ARCHITECTURE N TERMINAL PRO BNP OUTPATIENT STAT 05/23/2024 9:02 PM DIRECTOR DATA ARCHITECTURE TROPONIN T, HIGH SENSITIVITY STAT 05/23/2024 9:02 PM DIRECTOR DATA ARCHITECTURE RETICULOCYTE COUNT STAT 05/23/2024 9: 02 PM DIRECTOR DATA ARCHITECTURE CBC WITH PLATELETS STAT 05/23/2024 9: 02 PM DIRECTOR DATA ARCHITECTURE ECG 12-LEAD WITH MUSE SJN,SJO,WWH STAT 05/23/2024 6:54 PM DIRECTOR DATA ARCHITECTURE XR CHEST 2 VIEWS STAT 05/22/2024 5:19 PM DIRECTOR DATA ARCHITECTURE CBC WITH PLATELETS & DIFFERENTIAL STAT 05/22/2024 3:51 PM DIRECTOR DATA ARCHITECTURE RBC AND PLATELET MORPHOLOGY STAT 05/22/2024 3:51 PM DIRECTOR DATA ARCHITECTURE CBC WITH PLATELETS AND DIFFERENTIAL STAT 05/22/2024 3:51 PM DIRECTOR DATA ARCHITECTURE BASIC METABOLIC PANEL STAT 05/22/2024 3:51 PM DIRECTOR DATA ARCHITECTURE ECG 12-LEAD WITH MUSE SJN,SJO,WWH STAT 05/22/2024 3:14 PM DIRECTOR DATA ARCHITECTURE XR CHEST 2 VIEWS STAT 05/20/2024 9:30 AM DIRECTOR DATA ARCHITECTURE CBC WITH PLATELETS & DIFFERENTIAL STAT 05/20/2024 9:09 AM DIRECTOR DATA ARCHITECTURE RBC AND PLATELET MORPHOLOGY STAT 05/20/2024 9:09 AM DIRECTOR DATA ARCHITECTURE BASIC METABOLIC PANEL STAT 05/20/2024 9:09 AM DIRECTOR DATA ARCHITECTURE EXTRA GREEN TOP (LITHIUM HEPARIN) TUBE STAT 05/20/2024 9:09 AM DIRECTOR DATA ARCHITECTURE EXTRA TUBE STAT 05/20/2024 9:09 AM DIRECTOR DATA ARCHITECTURE CBC WITH PLATELETS AND DIFFERENTIAL STAT 05/20/2024 9:09 AM DIRECTOR DATA ARCHITECTURE RETICULOCYTE COUNT STAT 05/20/2024 9: 09 AM DIRECTOR DATA ARCHITECTURE BASIC METABOLIC PANEL STAT 05/20/2024 8:21 AM DIRECTOR DATA ARCHITECTURE ECG 12-LEAD WITH MUSE SJN,SJO,WWH STAT 05/20/2024 7:36 AM DIRECTOR DATA ARCHITECTURE CBC WITH PLATELETS & DIFFERENTIAL STAT 05/19/2024 3:05 AM DIRECTOR DATA ARCHITECTURE MANUAL DIFFERENTIAL STAT 05/19/2024 3 :05 AM DIRECTOR DATA ARCHITECTURE CBC WITH PLATELETS AND DIFFERENTIAL STAT 05/19/2024 3:05 AM DIRECTOR DATA ARCHITECTURE HCG QUALITATIVE STAT 05/19/2024 3:05 AM DIRECTOR DATA ARCHITECTURE CK TOTAL STAT 05/19/2024 3:05 AM DIRECTOR DATA ARCHITECTURE HEPATIC FUNCTION PANEL STAT 3:05 AM DIRECTOR DATA ARCHITECTURE BASIC METABOLIC PANEL STAT 05/19/2024 3:05 AM DIRECTOR DATA ARCHITECTURE RETICULOCYTE COUNT STAT 05/19/2024 3: 05 AM DIRECTOR DATA ARCHITECTURE CBC WITH PLATELETS & DIFFERENTIAL STAT 05/16/2024 10:17 PM DIRECTOR DATA ARCHITECTURE RBC AND PLATELET MORPHOLOGY STAT 05/16/2024 10:17 PM DIRECTOR DATA ARCHITECTURE CBC WITH PLATELETS AND DIFFERENTIAL STAT 05/16/2024 10:17 PM DIRECTOR DATA ARCHITECTURE BASIC METABOLIC PANEL STAT 05/16/2024 10:17 PM DIRECTOR DATA ARCHITECTURE INFLUENZA A/B, RSV AND SARS-COV2 PCR STAT 05/16/2024 10:00 PM DIRECTOR DATA ARCHITECTURE CBC WITH PLATELETS & DIFFERENTIAL STAT 05/14/2024 10:24 PM DIRECTOR DATA ARCHITECTURE MANUAL DIFFERENTIAL STAT 05/14/2024 10:24 PM DIRECTOR DATA ARCHITECTURE CBC WITH PLATELETS AND DIFFERENTIAL STAT 05/14/2024 10:24 PM DIRECTOR DATA ARCHITECTURE HCG QUALITATIVE STAT 05/14/2024 10:24 PM DIRECTOR DATA ARCHITECTURE TROPONIN T, HIGH SENSITIVITY STAT 05/14/2024 10:24 PM DIRECTOR DATA ARCHITECTURE RETICULOCYTE COUNT STAT 05/14/2024 10:24 PM DIRECTOR DATA ARCHITECTURE HEPATIC FUNCTION PANEL STAT 10:24 PM DIRECTOR DATA ARCHITECTURE BASIC METABOLIC PANEL STAT 05/14/2024 10:24 PM DIRECTOR DATA ARCHITECTURE ECG 12-LEAD WITH MUSE SJN,SJO,WWH STAT 05/14/2024 10:12 PM DIRECTOR DATA ARCHITECTURE EXTRA PURPLE TOP TUBE STAT 05/13/2024 6:17 PM DIRECTOR DATA ARCHITECTURE EXTRA TUBE STAT 05/13/2024 6:17 PM DIRECTOR DATA ARCHITECTURE LACTATE DEHYDROGENASE STAT 05/13/2024 6:16 PM DIRECTOR DATA ARCHITECTURE CBC WITH PLATELETS & DIFFERENTIAL STAT 05/13/2024 4:57 PM DIRECTOR DATA ARCHITECTURE MANUAL DIFFERENTIAL STAT 05/13/2024 4 :57 PM DIRECTOR DATA ARCHITECTURE CBC WITH PLATELETS AND DIFFERENTIAL STAT 05/13/2024 4:57 PM DIRECTOR DATA ARCHITECTURE TROPONIN T, HIGH SENSITIVITY STAT 05/13/2024 4:57 PM DIRECTOR DATA ARCHITECTURE RETICULOCYTE COUNT STAT 05/13/2024 4: 57 PM DIRECTOR DATA ARCHITECTURE HEPATIC FUNCTION PANEL STAT 4:57 PM DIRECTOR DATA ARCHITECTURE BASIC METABOLIC PANEL STAT 05/13/2024 4:57 PM DIRECTOR DATA ARCHITECTURE ECG 12-LEAD WITH MUSE SJN,SJO,WWH STAT 05/13/2024 3:38 PM DIRECTOR DATA ARCHITECTURE INFLUENZA A/B, RSV AND SARS-COV2 PCR STAT 05/08/2024 7:33 PM DIRECTOR DATA ARCHITECTURE XR CHEST 2 VIEWS STAT 05/08/2024 5:27 PM DIRECTOR DATA ARCHITECTURE CBC WITH PLATELETS & DIFFERENTIAL STAT 05/08/2024 4:14 PM DIRECTOR DATA ARCHITECTURE RBC AND PLATELET MORPHOLOGY STAT 05/08/2024 4:14 PM DIRECTOR DATA ARCHITECTURE CBC WITH PLATELETS AND DIFFERENTIAL STAT 05/08/2024 4:14 PM DIRECTOR DATA ARCHITECTURE HCG QUALITATIVE STAT 05/08/2024 4:14 PM DIRECTOR DATA ARCHITECTURE INR STAT 05/08/2024 4:14 PM DIRECTOR DATA ARCHITECTURE TROPONIN T, HIGH SENSITIVITY STAT 05/08/2024 4:14 PM DIRECTOR DATA ARCHITECTURE RETICULOCYTE COUNT STAT 05/08/2024 4: 14 PM DIRECTOR DATA ARCHITECTURE COMPREHENSIVE METABOLIC PANEL STAT 05/08/2024 4:14 PM DIRECTOR DATA ARCHITECTURE ECG 12-LEAD WITH MUSE SJN,SJO,WWH STAT 05/08/2024 3:13 PM DIRECTOR DATA ARCHITECTURE ECG 12-LEAD WITH MUSE SJN,SJO,WWH STAT 05/06/2024 7:51 PM DIRECTOR DATA ARCHITECTURE CBC WITH PLATELETS & DIFFERENTIAL STAT 05/06/2024 7:43 PM DIRECTOR DATA ARCHITECTURE RBC AND PLATELET MORPHOLOGY STAT 05/06/2024 7:43 PM DIRECTOR DATA ARCHITECTURE CBC WITH PLATELETS AND DIFFERENTIAL STAT 05/06/2024 7:43 PM DIRECTOR DATA ARCHITECTURE HEPATIC FUNCTION PANEL STAT 7:43 PM DIRECTOR DATA ARCHITECTURE RETICULOCYTE COUNT STAT 05/06/2024 7: 43 PM DIRECTOR DATA ARCHITECTURE TROPONIN T, HIGH SENSITIVITY STAT 05/06/2024 7:43 PM DIRECTOR DATA ARCHITECTURE BASIC METABOLIC PANEL STAT 05/06/2024 7:43 PM DIRECTOR DATA ARCHITECTURE XR CHEST 2 VIEWS STAT 05/05/2024 12:16 PM DIRECTOR DATA ARCHITECTURE CBC WITH PLATELETS & DIFFERENTIAL STAT 05/05/2024 11:50 AM DIRECTOR DATA ARCHITECTURE RBC AND PLATELET MORPHOLOGY STAT 05/05/2024 11:50 AM DIRECTOR DATA ARCHITECTURE CBC WITH PLATELETS AND DIFFERENTIAL STAT 05/05/2024 11:50 AM DIRECTOR DATA ARCHITECTURE TROPONIN T, HIGH SENSITIVITY STAT 05/05/2024 11:50 AM DIRECTOR DATA ARCHITECTURE RETICULOCYTE COUNT STAT 05/05/2024 11:50 AM DIRECTOR DATA ARCHITECTURE BASIC METABOLIC PANEL STAT 05/05/2024 11:50 AM DIRECTOR DATA ARCHITECTURE ECG 12-LEAD WITH MUSE SJN,SJO,WWH STAT 05/05/2024 11:03 AM DIRECTOR DATA ARCHITECTURE CBC WITH PLATELETS & DIFFERENTIAL STAT 04/28/2024 1:50 AM DIRECTOR DATA ARCHITECTURE VITAMIN D DEFICIENCY SCREENING Add-On 04/28/2024 1:50 AM DIRECTOR DATA ARCHITECTURE Sickle cell pain crisis (H) MANUAL DIFFERENTIAL STAT 04/28/2024 1 :50 AM DIRECTOR DATA ARCHITECTURE CBC WITH PLATELETS AND DIFFERENTIAL STAT 04/28/2024 1:50 AM DIRECTOR DATA ARCHITECTURE RETICULOCYTE COUNT STAT 04/28/2024 1: 50 AM DIRECTOR DATA ARCHITECTURE COMPREHENSIVE METABOLIC PANEL STAT 04/28/2024 1:50 AM DIRECTOR DATA ARCHITECTURE CBC WITH PLATELETS & DIFFERENTIAL STAT 04/27/2024 12:23 AM DIRECTOR DATA ARCHITECTURE RBC AND PLATELET MORPHOLOGY STAT 04/27/2024 12:23 AM DIRECTOR DATA ARCHITECTURE CBC WITH PLATELETS AND DIFFERENTIAL STAT 04/27/2024 12:23 AM DIRECTOR DATA ARCHITECTURE RETICULOCYTE COUNT STAT 04/27/2024 12:23 AM DIRECTOR DATA ARCHITECTURE COMPREHENSIVE METABOLIC PANEL STAT 04/27/2024 12:23 [address] DATA ARCH[address] CT PELVIS BONE WO CONTRAST STAT 04/19/2024 3:22 AM DIRECTOR DATA ARCHITECTURE HCG QUALITATIVE URINE STAT 04/19/2024 2:17 AM DIRECTOR DATA ARCHITECTURE ROUTINE UA WITH MICROSCOPIC REFLEX TO CULTURE STAT 04/19/2024 2:16 AM DIRECTOR DATA ARCHITECTURE CBC WITH PLATELETS & DIFFERENTIAL STAT 04/19/2024 2:11 AM DIRECTOR DATA ARCHITECTURE MANUAL DIFFERENTIAL STAT 04/19/2024 2 :11 AM DIRECTOR DATA ARCHITECTURE CBC WITH PLATELETS AND DIFFERENTIAL STAT 04/19/2024 2:11 AM DIRECTOR DATA ARCHITECTURE RETICULOCYTE COUNT STAT 04/19/2024 2: 11 AM DIRECTOR DATA ARCHITECTURE BASIC METABOLIC PANEL STAT 04/19/2024 2:11 AM DIRECTOR DATA ARCHITECTURE CBC WITH PLATELETS & DIFFERENTIAL Routine 04/10/2024 5:35 AM DIRECTOR DATA ARCHITECTURE CBC WITH PLATELETS AND DIFFERENTIAL Routine 04/10/2024 5:35 AM DIRECTOR DATA ARCHITECTURE CBC WITH PLATELETS STAT 04/09/2024 6: 13 AM DIRECTOR DATA ARCHITECTURE BASIC METABOLIC PANEL STAT 04/09/2024 6:13 AM DIRECTOR DATA ARCHITECTURE CBC WITH PLATELETS & DIFFERENTIAL STAT 04/08/2024 10:22 PM DIRECTOR DATA ARCHITECTURE EXTRA RED TOP TUBE STAT 04/08/2024 10:22 PM DIRECTOR DATA ARCHITECTURE EXTRA BLUE TOP TUBE STAT 04/08/2024 10:22 PM DIRECTOR DATA ARCHITECTURE CBC WITH PLATELETS AND DIFFERENTIAL STAT 04/08/2024 10:22 PM DIRECTOR DATA ARCHITECTURE EXTRA TUBE STAT 04/08/2024 10:22 PM DIRECTOR DATA ARCHITECTURE BASIC METABOLIC PANEL STAT 04/08/2024 10:22 PM DIRECTOR DATA ARCHITECTURE RETICULOCYTE COUNT STAT 04/08/2024 10:22 PM DIRECTOR DATA ARCHITECTURE ECG 12-LEAD WITH MUSE SJN,SJO,WWH STAT 04/08/2024 9:45 PM [address]OR DATA ARCHITECTURE CT CHEST PULMONARY EMBOLISM W CONTRAST STAT 04/06/2024 2:22 AM DIRECTOR DATA ARCHITECTURE D DIMER QUANTITATIVE STAT 04/06/2024 12:45 AM DIRECTOR DATA ARCHITECTURE TROPONIN T, HIGH SENSITIVITY STAT 04/06/2024 12:45 AM DIRECTOR DATA ARCHITECTURE BASIC METABOLIC PANEL STAT 04/06/2024 12:45 AM DIRECTOR DATA ARCHITECTURE CBC WITH PLATELETS AND DIFFERENTIAL STAT 04/06/2024 12:43 AM DIRECTOR DATA ARCHITECTURE ECG 12-LEAD WITH MUSE SJN,SJO,WWH STAT 04/06/2024 12:41 AM DIRECTOR DATA ARCHITECTURE CBC WITH PLATELETS & DIFFERENTIAL STAT 04/05/2024 11:47 PM DIRECTOR DATA ARCHITECTURE XR CHEST 2 VIEWS STAT 03/26/2024 2:19 AM DIRECTOR DATA ARCHITECTURE CBC WITH PLATELETS & DIFFERENTIAL STAT 03/26/2024 1:54 AM DIRECTOR DATA ARCHITECTURE MANUAL DIFFERENTIAL Routine 03/26/2024 1 :54 AM DIRECTOR DATA ARCHITECTURE CBC WITH PLATELETS AND DIFFERENTIAL STAT 03/26/2024 1:54 AM DIRECTOR DATA ARCHITECTURE HCG QUALITATIVE STAT 03/26/2024 1:54 AM DIRECTOR DATA ARCHITECTURE RETICULOCYTE COUNT STAT 03/26/2024 1: 54 AM DIRECTOR DATA ARCHITECTURE TROPONIN T, HIGH SENSITIVITY STAT 03/26/2024 1:54 AM DIRECTOR DATA ARCHITECTURE COMPREHENSIVE METABOLIC PANEL STAT 03/26/2024 1:54 AM DIRECTOR DATA ARCHITECTURE INR STAT 03/26/2024 1:54 AM DIRECTOR DATA ARCHITECTURE ECG 12-LEAD WITH MUSE SJN,SJO,WWH STAT 03/26/2024 1:13 AM DIRECTOR DATA ARCHITECTURE CBC WITH PLATELETS & DIFFERENTIAL STAT 03/25/2024 4:44 AM DIRECTOR DATA ARCHITECTURE MANUAL DIFFERENTIAL Routine 03/25/2024 4 :44 AM DIRECTOR DATA ARCHITECTURE RBC AND PLATELET MORPHOLOGY STAT 03/25/2024 4:44 AM DIRECTOR DATA ARCHITECTURE CBC WITH PLATELETS AND DIFFERENTIAL STAT 03/25/2024 4:44 AM DIRECTOR DATA ARCHITECTURE RETICULOCYTE COUNT STAT 03/25/2024 4: 44 AM DIRECTOR DATA ARCHITECTURE COMPREHENSIVE METABOLIC PANEL STAT 03/25/2024 4:44 AM DIRECTOR DATA ARCHITECTURE INR STAT 03/25/2024 4:44 AM DIRECTOR DATA ARCHITECTURE from Last 3 Months Results * (ABNORMAL) CBC with platelets and differential (06/20/2024 5:48 AM DIRECTOR DATA ARCHITECTURE) Only the most recent of29 resultswithin the time period is included. Pathologist [facility] WBC Count 9.3 4.0 - 11.0 10e3/uL 06/20/2024 6:05 AM DIRECTOR DATA ARCHITECTURE [facility] RBC Count 2.54(L) 3.80 - 5.20 10e6/uL 06/20/2024 6:05 AM DIRECTOR DATA ARCHITECTURE [facility] Hemoglobin 8.0(L) 11.7 - 15.7 g/dL 06/20/2024 6:05 AM DIRECTOR DATA ARCHITECTURE [facility] Hematocrit 23.2(L) 35.0 - 47.0 % 06/20/2024 6:05 AM DIRECTOR DATA ARCHITECTURE [facility] MCV 91 78 - 100 fL 06/20/2024 6:05 AM DIRECTOR DATA ARCHITECTURE [facility] MCH 31.5 26.5 - 33.0 pg 06/20/2024 6:05 AM DIRECTOR DATA ARCHITECTURE [facility] MCHC 34.5 31.5 - 36.5 g/dL 06/20/2024 6:05 AM DIRECTOR DATA ARCHITECTURE [facility] RDW 18.4(H) 10.0 - 15.0 % 06/20/2024 6:05 AM DIRECTOR DATA ARCHITECTURE [facility] Platelet Count 435 150 - 450 10e3/uL 06/20/2024 6:05 AM DIRECTOR DATA ARCHITECTURE [facility] % Neutrophils 47 % 06/20/2024 6:05 AM DIRECTOR DATA ARCHITECTURE [facility] % Lymphocytes 43 % 06/20/2024 6:05 AM DIRECTOR DATA ARCHITECTURE [facility] % Monocytes 6 % 06/20/2024 6:05 AM DIRECTOR DATA ARCHITECTURE [facility] % Eosinophils 3 % 06/20/2024 6:05 AM DIRECTOR DATA ARCHITECTURE [facility] % Basophils 1 % 06/20/2024 6:05 AM DIRECTOR DATA ARCHITECTURE [facility] % Immature Granulocytes 1 % 06/20/2024 6:05 AM DIRECTOR DATA ARCHITECTURE [facility] NRBCs per 100 WBC 1(H) <1 /100 025 6:05 AM DIRECTOR DATA ARCHITECTURE [facility] Absolute Neutrophils 4.4 1.6 - 8.3 10e3/uL 06/20/2024 6:05 AM DIRECTOR DATA ARCHITECTURE [facility] Absolute Lymphocytes 4.0 0.8 - 5.3 10e3/uL 06/20/2024 6:05 AM DIRECTOR DATA ARCHITECTURE [facility] Absolute Monocytes 0.5 0.0 - 1.3 10e3/uL 06/20/2024 6:05 AM DIRECTOR DATA ARCHITECTURE [facility] Absolute Eosinophils 0.3 0.0 - 0.7 10e3/uL 06/20/2024 6:05 AM DIRECTOR DATA ARCHITECTURE [facility] Absolute Basophils 0.1 0.0 - 0.2 10e3/uL 06/20/2024 6:05 AM DIRECTOR DATA ARCHITECTURE [facility] Absolute Immature Granulocytes 0.1 <=0.4 10e3/uL 06/20/2024 6:05 AM DIRECTOR DATA ARCHITECTURE [facility] Absolute NRBCs 0.1 10e3/uL 06/20/2024 6:05 AM DIRECTOR DATA ARCHITECTURE [facility] Blood (Portacath) IVAD (Port) / Unknown 06/20/2024 5:48 AM DIRECTOR DATA ARCHITECTURE 06/20/2024 5:55 AM DIRECTOR DATA ARCHITECTURE Polly Allen MD LAB - BLOOD ORDER SYD Final Result LABORATORY [facility] [address] [facility] * (ABNORMAL) Lactate Dehydrogenase (06/20/2024 5:48 AM DIRECTOR DATA ARCHITECTURE) Only the most recent of4 resultswithin the time period is included. Lactate Dehydrogenase 571(H) 0 - 250 U/L 06/20/2024 6:35 AM DIRECTOR DATA ARCHITECTURE [facility] Blood (Portacath) IVAD (Port) / Unknown 06/20/2024 5:48 AM DIRECTOR DATA ARCHITECTURE 06/20/2024 5:55 AM DIRECTOR DATA ARCHITECTURE Polly Allen MD LAB - BLOOD ORDER SYD Final Result Performing Organization Address [facility] de Phone Number LABORATORY [facility] [address] [facility] * (ABNORMAL) Reticulocyte count (06/20/2024 5:48 AM DIRECTOR DATA ARCHITECTURE) Only the most recent of21 resultswithin the time period is included. % Reticulocyte 9.6(H) 0.5 - 2.0 % 06/20/2024 6:37 AM DIRECTOR DATA ARCHITECTURE [facility] Absolute Reticulocyte 0.236(H) 0.025 - 0.095 10e6/uL 06/20/2024 6:37 AM DIRECTOR DATA ARCHITECTURE [facility] Blood (Portacath) IVAD (Port) / Unknown 06/20/2024 5:48 AM DIRECTOR DATA ARCHITECTURE 06/20/2024 5:55 AM DIRECTOR DATA ARCHITECTURE Polly Allen MD LAB - BLOOD ORDER SYD Final Result [facility] [address] [facility] [place] [address], [facility] * (ABNORMAL) Comprehensive metabolic panel (06/20/2024 5:48 AM DIRECTOR DATA ARCHITECTURE) Only the most recent of11 resultswithin the time period is included. Sodium 133(L) 135 - 145 mmol/L 06/20/2024 6:35 AM DIRECTOR DATA ARCHITECTURE [facility] Potassium 4.6 3.4 - 5.3 mmol/L 06/20/2024 6:35 AM DIRECTOR DATA ARCHITECTURE [facility] Carbon Dioxide (CO2) 21(L) 22 - 29 mmol/L 06/20/2024 6:35 AM DIRECTOR DATA ARCHITECTURE [facility] Anion Gap 8 7 - 15 mmol/L 06/20/2024 6:35 AM DIRECTOR DATA ARCHITECTURE [facility] Urea Nitrogen 14.6 6.0 - 20.0 mg/dL 06/20/2024 6:35 AM DIRECTOR DATA ARCHITECTURE [facility] Creatinine 0.66 0.51 - 0.95 mg/dL 06/20/2024 6:35 AM DIRECTOR DATA ARCHITECTURE [facility] GFR Estimate >90 >60 mL/min/1.7 3m2 06/20/2024 6:35 AM DIRECTOR DATA ARCHITECTURE [facility] Comment:eGFR calculated 2020 CKD-EPI equation. Calcium 8.7(L) 8.8 - 10.4 mg/dL 06/20/2024 6:35 AM DIRECTOR DATA ARCHITECTURE [facility] Chloride 104 98 - 107 mmol/L 06/20/2024 6:35 AM DIRECTOR DATA ARCHITECTURE [facility] Glucose 100(H) 70 - 99 mg/dL 06/20/2024 6:35 AM DIRECTOR DATA ARCHITECTURE [facility] Alkaline Phosphatase 98 40 - 150 U/L 06/20/2024 6:35 AM DIRECTOR DATA ARCHITECTURE [facility] AST 67(H) 0 - 45 U/L 06/20/2024 6:35 AM DIRECTOR DATA ARCHITECTURE [facility] ALT 40 0 - 50 U/L 06/20/2024 6:35 AM DIRECTOR DATA ARCHITECTURE [facility] Protein Total 7.2 6.4 - 8.3 g/dL 06/20/2024 6:35 AM DIRECTOR DATA ARCHITECTURE [facility] Albumin 3.9 3.5 - 5.2 g/dL 06/20/2024 6:35 AM DIRECTOR DATA ARCHITECTURE [facility] Bilirubin Total 1.5(H) <=1.2 mg/dL 06/20/2024 6:35 AM DIRECTOR DATA ARCHITECTURE [facility] Blood (Portacath) IVAD (Port) / Unknown 06/20/2024 5:48 AM DIRECTOR DATA ARCHITECTURE 06/20/2024 5:55 AM DIRECTOR DATA ARCHITECTURE Polly Allen MD LAB - BLOOD ORDER SYD Final Result [facility] [address] [place] [id number] * (ABNORMAL) RBC and Platelet Morphology (06/19/2024 9:30 AM DIRECTOR DATA ARCHITECTURE) Only the most recent of15 resultswithin the time period is included. RBC Morphology Confirmed RBC Indices 06/19/2024 11:43 AM DIRECTOR DATA ARCHITECTURE [facility] Platelet Assessment Automated Count Confirmed. Giant platelets are present.(A) Automated Count Confirmed. Platelet morphology is normal. 06/19/2024 11:43 AM DIRECTOR DATA ARCHITECTURE [facility] Giant Platelets Slight(A) None Seen 11:43 AM DIRECTOR DATA ARCHITECTURE [facility] Elliptocytes None Seen None Seen 06/19/2024 11:43 AM DIRECTOR DATA ARCHITECTURE [facility] Polychromasia Slight(A) None Seen 06/19/2024 11:43 AM DIRECTOR DATA ARCHITECTURE [facility] RBC Fragments Slight(A) None Seen 06/19/2024 11:43 AM DIRECTOR DATA ARCHITECTURE [facility] Reactive Lymphocytes Present(A) None Seen 06/19/2024 11:43 AM DIRECTOR DATA ARCHITECTURE [facility] Sickle Cells Moderate(A) None Seen 06/19/2024 11:43 AM DIRECTOR DATA ARCHITECTURE [facility] Smudge Cells Present(A) None Seen 06/19/2024 11:43 AM DIRECTOR DATA ARCHITECTURE [facility] Target Cells Moderate(A) None Seen 06/19/2024 11:43 AM DIRECTOR DATA ARCHITECTURE [facility] Blood CENTRAL VENOUS CATHETER / Unknown VAD(CVC, PICC) / Unknown 06/19/2024 9:30 AM DIRECTOR DATA ARCHITECTURE 06/19/2024 9:42 AM DIRECTOR DATA ARCHITECTURE Polly Allen MD LAB - BLOOD ORDER SYD Final Result [facility] [place] [facility] [address] [facility], [address] * (ABNORMAL) Platelet count (06/19/2024 12:17 AM DIRECTOR DATA ARCHITECTURE) Platelet Count 467(H) 150 - 450 10e3/uL 06/19/2024 12:44 AM DIRECTOR DATA ARCHITECTURE [facility] Blood BLOOD SPECIMEN / Unknown Venipuncture / Unknown 06/19/2024 12:17 AM DIRECTOR DATA ARCHITECTURE 06/19/2024 12:26 AM DIRECTOR DATA ARCHITECTURE us Laquita Kelley MD LAB - BLOOD ORDERABLES Final Re sult Performing Organization Address City/[facility]/ZIP Co de Phone Number [facility] [address] [facility], [address] * Creatinine (06/19/2024 12:17 AM DIRECTOR DATA ARCHITECTURE) Creatinine 0.72 0.51 - 0.95 mg/dL 06/19/2024 12:51 AM DIRECTOR DATA ARCHITECTURE [facility] GFR Estimate >90 >60 mL/min/1.7 3m2 06/19/2024 12:51 AM DIRECTOR DATA ARCHITECTURE [facility] Comment:eGFR calculated usin 2020 CKD-EPI equation. Blood BLOOD SPECIMEN / Unknown Venipuncture / Unknown 06/19/2024 12:17 AM DIRECTOR DATA ARCHITECTURE 06/19/2024 12:26 AM DIRECTOR DATA ARCHITECTURE us Laquita Kelley MD LAB - BLOOD ORDERABLES Final Re sult [facility] [place] [facility] [address] [facility], [address] * (ABNORMAL) Manual Differential (06/18/2024 8:24 AM DIRECTOR DATA ARCHITECTURE) % Neutrophils 52 % 06/18/2024 9:35 AM DIRECTOR DATA ARCHITECTURE [facility] % Lymphocytes 39 % 06/18/2024 9:35 AM DIRECTOR DATA ARCHITECTURE [facility] % Monocytes 7 % 06/18/2024 9:35 AM DIRECTOR DATA ARCHITECTURE [facility] % Eosinophils 3 % 06/18/2024 9:35 AM DIRECTOR DATA ARCHITECTURE [facility] % Basophils 0 % 06/18/2024 9:35 AM DIRECTOR DATA ARCHITECTURE [facility] NRBCs per 100 WBC 13(H) <=0 % 06/18/2024 9:35 AM DIRECTOR DATA ARCHITECTURE [facility] Absolute Neutrophils 5.6 1.6 - 8.3 10e3/uL 06/18/2024 9:35 AM DIRECTOR DATA ARCHITECTURE [facility] Absolute Lymphocytes 4.2 0.8 - 5.3 10e3/uL 06/18/2024 9:35 AM DIRECTOR DATA ARCHITECTURE [facility] Absolute Monocytes 0.7 0.0 - 1.3 10e3/uL 06/18/2024 9:35 AM DIRECTOR DATA ARCHITECTURE [facility] Absolute Eosinophils 0.3 0.0 - 0.7 10e3/uL 06/18/2024 9:35 AM DIRECTOR DATA ARCHITECTURE [facility] Absolute Basophils 0.0 0.0 - 0.2 10e3/uL 06/18/2024 9:35 AM DIRECTOR DATA ARCHITECTURE [facility] Absolute NRBCs 1.4(H) <=0.0 10e3/uL 025 9:35 AM DIRECTOR DATA ARCHITECTURE [facility] RBC Morphology Confirmed RBC Indices 06/18/2024 9:35 AM DIRECTOR DATA ARCHITECTURE [facility] Platelet Assessment Automated Count Confirmed. Platelet morphology is normal. Automated Count Confirmed. Platelet morphology is normal. 06/18/2024 9:35 AM DIRECTOR DATA ARCHITECTURE [facility] RBC Fragments Slight(A) None Seen 06/18/2024 9:35 AM DIRECTOR DATA ARCHITECTURE [facility] Polychromasia Slight(A) None Seen 06/18/2024 9:35 AM DIRECTOR DATA ARCHITECTURE [facility] Sickle Cells Moderate(A) None Seen 06/18/2024 9:35 AM DIRECTOR DATA ARCHITECTURE [facility] Blood BLOOD SPECIMEN / Unknown Venipuncture / Unknown 06/18/2024 8:24 AM DIRECTOR DATA ARCHITECTURE 06/18/2024 8:32 AM DIRECTOR DATA ARCHITECTURE us Polly Allen MD LAB - BLOOD ORDER SYD Final Result [facility] [place] [facility] [address] [facility], [address] [place] [address], [facility] * Transfuse red blood cells (unit), Sickle Cell (Hgb S) Negative (06/17/2024 2:33 PM DIRECTOR DATA ARCHITECTURE) Only the most recent of2 resultswithin the time period is included. Drake Nina MD BLOOD TRANSFUSION ORDERABLES Final Result * (ABNORMAL) UA with Microscopic reflex to Culture (06/17/2024 1:11 PM DIRECTOR DATA ARCHITECTURE) Only the most recent of3 resultswithin the time period is included. Color Urine Light Yellow Colorless, Straw, Light Yellow, Yellow 06/17/2024 1:48 PM DIRECTOR DATA ARCHITECTURE [facility] Appearance Urine Clear Clear 06/17/19 1:48 PM DIRECTOR DATA ARCHITECTURE [facility] Glucose Urine Negative Negative mg/dL 06/17/2024 1:48 PM DIRECTOR DATA ARCHITECTURE [facility] Bilirubin Urine Negative Negative 1:48 PM DIRECTOR DATA ARCHITECTURE [facility] Ketones Urine Negative Negative mg/dL 06/17/2024 1:48 PM DIRECTOR DATA ARCHITECTURE [facility] Specific Watson Urine 1.009 1.003 - 1.035 06/17/2024 1:48 PM DIRECTOR DATA ARCHITECTURE [facility] Blood Urine Trace(A) Negative 06/17/2024 1:48 PM DIRECTOR DATA ARCHITECTURE [facility] pH Urine 6.5 5.0 - 7.0 06/17/2024 1:48 PM DIRECTOR DATA ARCHITECTURE [facility] Protein Albumin Urine Negative Negative mg/dL 06/17/2024 1:48 PM DIRECTOR DATA ARCHITECTURE [facility] Urobilinogen Urine Normal Normal, 2.0 mg/dL 06/17/2024 1:48 PM DIRECTOR DATA ARCHITECTURE [facility] Nitrite Urine Negative Negative 06/17/2024 1:48 PM DIRECTOR DATA ARCHITECTURE [facility] Leukocyte Esterase Urine Small(A) Negative 06/17/2024 1:48 PM DIRECTOR DATA ARCHITECTURE [facility] RBC Urine <1 <=2 /HPF 06/17/2024 1:48 PM DIRECTOR DATA ARCHITECTURE [facility] WBC Urine <1 <=5 /HPF 06/17/2024 1:48 PM DIRECTOR DATA ARCHITECTURE [facility] Squamous Epithelials Urine 3(H) <=1 /HPF 06/17/2024 1:48 PM DIRECTOR DATA ARCHITECTURE [facility] Urine URINE SPECIMEN OBTAINED BY CLEAN CATCH PROCEDURE / Unknown Non-blood Collection / Unknown 06/17/2024 1:11 PM DIRECTOR DATA ARCHITECTURE 06/17/2024 1:38 PM DIRECTOR DATA ARCHITECTURE Narrative [facility] - 06/17/2024 1:48 PM DIRECTOR DATA ARCHITECTURE Urine Culture not indicated Polly Allen MD LAB - URINE ORDER SYD Final Result [facility] [place] [facility] [address] [facility] [address] [facility], [address] [place] [phone] * Prepare red blood cells (unit) (06/17/2024 9:12 AM DIRECTOR DATA ARCHITECTURE) Only the most recent of2 resultswithin the time period is included. Pathologist [facility] Blood Component Type Red Blood Cells [facility] Product Code [id number] [facility] Unit Status Transfused [facility] Unit Number [id number] U[facility] B LOOD BANK CROSSMATCH COMPATIBLE [facility] CODING SYSTEM [id number] UU BLO OD BANK ISSUE DATE AND TIME [id number] [facility] BLOOD BANK UNIT ABO/RH A+ [facility] UNIT TYPE ISBT 6200 UU BL OOD BANK 06/17/2024 9:12 AM DIRECTOR DATA ARCHITECTURE Drake Nina MD BLOOD BANK PRODUCT ORDERABLES Final Result Performing Organization Address [facility]/[place] Co de Phone Number BLOOD BANK [address] [place] [phone] * (ABNORMAL) Transferrin (06/17/2024 6:16 AM DIRECTOR DATA ARCHITECTURE) Pathologist [facility] Transferrin 100.0(L) 200.0 - 360.0 mg/dL 06/17/2024 9:36 AM DIRECTOR DATA ARCHITECTURE [facility] Blood VENOUS LINE / Unknown IVAD (Port) / Unknown 06/17/2024 6:16 AM DIRECTOR DATA ARCHITECTURE 06/17/2024 6:27 AM DIRECTOR DATA ARCHITECTURE Drake Nina MD LAB - BLOOD ORDERABLES Final Result [facility] [place] [facility] [address] [facility], [address] * Iron and iron binding capacity (06/17/2024 6:16 AM DIRECTOR DATA ARCHITECTURE) [facility] Iron 123 37 - 145 ug/dL 06/17/2024 10:02 AM DIRECTOR DATA ARCHITECTURE [facility] Iron Binding Capacity 06/17/2024 10:02 AM DIRECTOR DATA ARCHITECTURE [facility] Comment:Unable to calculate: UIBC or Iron value is outside detectable level. Iron Sat Index 06/17/2024 10:02 AM DIRECTOR DATA ARCHITECTURE [facility] Comment:Unable to calculate: UIBC or Iron value is outside detectable level. Blood VENOUS LINE / Unknown IVAD (Port) / Unknown 06/17/2024 6:16 AM DIRECTOR DATA ARCHITECTURE 06/17/2024 6:27 AM DIRECTOR DATA ARCHITECTURE us Drake Nina MD LAB - BLOOD ORDERABLES Final Result [facility] [address] [facility], [address] * (ABNORMAL) Basic metabolic panel (06/17/2024 6:16 AM DIRECTOR DATA ARCHITECTURE) Only the most recent of20 resultswithin the time period is included. [facility] Sodium 134(L) 135 - 145 mmol/L 06/17/2024 6:55 AM DIRECTOR DATA ARCHITECTURE [facility] Potassium 4.6 3.4 - 5.3 mmol/L 06/17/2024 6:55 AM DIRECTOR DATA ARCHITECTURE [facility] Chloride 105 98 - 107 mmol/L 06/17/2024 6:55 AM DIRECTOR DATA ARCHITECTURE [facility] Carbon Dioxide (CO2) 20(L) 22 - 29 mmol/L 06/17/2024 6:55 AM DIRECTOR DATA ARCHITECTURE [facility] Anion Gap 9 7 - 15 mmol/L 06/17/2024 6:55 AM DIRECTOR DATA ARCHITECTURE [facility] Urea Nitrogen 16.1 6.0 - 20.0 mg/dL 06/17/2024 6:55 AM DIRECTOR DATA ARCHITECTURE [facility] Creatinine 0.90 0.51 - 0.95 mg/dL 06/17/2024 6:55 AM DIRECTOR DATA ARCHITECTURE [facility] GFR Estimate 88 >60 mL/min/1.7 3m2 06/17/2024 6:55 AM DIRECTOR DATA ARCHITECTURE [facility] Comment:eGFR calculated 2020 CKD-EPI equation. Calcium 8.4(L) 8.8 - 10.4 mg/dL 06/17/2024 6:55 AM DIRECTOR DATA ARCHITECTURE [facility] Glucose 95 70 - 99 mg/dL 06/17/2024 6:55 AM DIRECTOR DATA ARCHITECTURE [facility] Blood VENOUS LINE / Unknown IVAD (Port) / Unknown 06/17/2024 6:16 AM DIRECTOR DATA ARCHITECTURE 06/17/2024 6:27 AM DIRECTOR DATA ARCHITECTURE us Laquita Kelley MD LAB - BLOOD ORDERABLES Final Re sult [facility] [place] [facility] [address] [facility], [address] [place] [phone] * (ABNORMAL) CBC with platelets (06/17/2024 6:16 AM DIRECTOR DATA ARCHITECTURE) Only the most recent of5 resultswithin the time period is included. WBC Count 14.6(H) 4.0 - 11.0 10e3/uL 06/17/2024 6:38 AM DIRECTOR DATA ARCHITECTURE [facility] RBC Count 1.97(L) 3.80 - 5.20 10e6/uL 06/17/2024 6:38 AM DIRECTOR DATA ARCHITECTURE [facility] Hemoglobin 6.3(LL) 11.7 - 15.7 g/dL 06/17/2024 6:38 AM DIRECTOR DATA ARCHITECTURE [facility] Hematocrit 17.9(L) 35.0 - 47.0 % 06/17/2024 6:38 AM DIRECTOR DATA ARCHITECTURE [facility] MCV 91 78 - 100 fL 06/17/2024 6:38 AM DIRECTOR DATA ARCHITECTURE [facility] MCH 32.0 26.5 - 33.0 pg 06/17/2024 6:38 AM DIRECTOR DATA ARCHITECTURE [facility] MCHC 35.2 31.5 - 36.5 g/dL 06/17/2024 6:38 AM DIRECTOR DATA ARCHITECTURE [facility] RDW 20.1(H) 10.0 - 15.0 % 06/17/2024 6:38 AM DIRECTOR DATA ARCHITECTURE [facility] Platelet Count 468(H) 150 - 450 10e3/uL 06/17/2024 6:38 AM DIRECTOR DATA ARCHITECTURE [facility] Blood VENOUS LINE / Unknown IVAD (Port) / Unknown 06/17/2024 6:16 AM DIRECTOR DATA ARCHITECTURE 06/17/2024 6:27 AM DIRECTOR DATA ARCHITECTURE us Laquita Kelley MD LAB - BLOOD ORDERABLES Final Re sult LABORATORY [facility] [address] [facility], [address] * Troponin T, High Sensitivity (06/16/2024 9:33 PM DIRECTOR DATA ARCHITECTURE) Only the most recent of11 resultswithin the time period is included. [facility] Troponin T, High Sensitivity 8 <=14 ng/L 06/16/2024 10:13 PM DIRECTOR DATA ARCHITECTURE [facility] Comment: Either a High Sensitivity Troponin [...] IVAD (Port) / Unknown 06/16/2024 9:33 PM DIRECTOR DATA ARCHITECTURE 06/16/2024 9:44 PM DIRECTOR DATA ARCHITECTURE us Abimael Schofield MD LAB - BLOOD ORDERABLE S Final Result LABORATORY [facility] [place] [facility] [address] [facility], [address] [phone] * Chest XR, PA & LAT (06/16/2024 6:09 PM DIRECTOR DATA ARCHITECTURE) Only the most recent of8 resultswithin the time period is included. Anatomical Region Laterality Modality Chest Digital Radiogra phy 06/16/2024 6:09 PM DIRECTOR DATA ARCHITECTURE Impressions 06/16/2024 6:13 PM DIRECTOR DATA ARCHITECTURE IMPRESSION: Left chest port catheter in stable position. Stable position of right central venous catheter. No airspace opacity, pleural effusion or pneumothorax. Narrative 06/16/2024 6:13 PM DIRECTOR DATA ARCHITECTURE EXAM: XR CHEST 2 VIEWS LOCATION: [facility] DATE: 06/16/2024 INDICATION: chest pain COMPARISON: 06/12/2024 Procedure Note Richar Haines MD - 06/16/2024 EXAM: XR CHEST 2 VIEWS LOCATION: [facility] DATE: 06/16/2024 INDICATION: chest pain COMPARISON: 06/12/2024 IMPRESSION: Left chest port catheter in stable position. Stable positionof right central venous catheter. No airspace opacity, pleural effusion orpneumothorax. us Varghesegiulia Schofield MD IMG DIAGNOSTIC IMAGIN G ORDERABLES Final Result * Adult Type and Screen (06/16/2024 5:37 PM DIRECTOR DATA ARCHITECTURE) Only the most recent of3 resultswithin the time period is included. ABO/RH(D) A POS 06/16/2024 5:08 PM DIRECTOR DATA ARCHITECTURE U B[facility] BANK Antibody Screen Negative Negative 06/16/2024 5:08 PM DIRECTOR DATA ARCHITECTURE BLOOD BANK Comment:Current antibody scr een is negative. Patient has a history of antibody(ies). A delay in compatible red blood cells may occur. SPECIMEN EXPIRATION DATE [id number] 06/16/2024 5:08 PM DIRECTOR DATA ARCHITECTURE BLOOD BANK Blood BLOOD SPECIMEN / Unknown Venipuncture / Unknown 06/16/2024 5:37 PM DIRECTOR DATA ARCHITECTURE 06/16/2024 5:46 PM DIRECTOR DATA ARCHITECTURE us Varghesegiulia Schofield MD LAB - BLOOD BANK TEST ORDER Final Result BLOOD BANK [address] [place] [phone] * (ABNORMAL) Prolactin (06/16/2024 5:37 PM DIRECTOR DATA ARCHITECTURE) Prolactin 55(H) 5 - 23 ng/mL 06/16/2024 6:24 PM DIRECTOR DATA ARCHITECTURE [facility] Blood BLOOD SPECIMEN / Unknown Venipuncture / Unknown 06/16/2024 5:37 PM DIRECTOR DATA ARCHITECTURE 06/16/2024 5:46 PM DIRECTOR DATA ARCHITECTURE Varghesegiulia Schofield MD LAB - BLOOD ORDERABLE S Final Result U [facility]ATORY [facility] [place] [facility] [address] [facility], [address] [place] [phone] * Blood Culture Peripheral Blood (06/16/2024 5:37 PM DIRECTOR DATA ARCHITECTURE) Only the most recent of3 resultswithin the time period is included. Culture No Growth 06/21/2024 6:47 PM DIRECTOR DATA ARCHITECTURE [facility] Blood BLOOD SPECIMEN / Unknown Venipuncture / Unknown 06/16/2024 5:37 PM DIRECTOR DATA ARCHITECTURE 06/16/2024 5:47 PM DIRECTOR DATA ARCHITECTURE Abimael Schofield MD LAB - MICRO GENERAL O RDERABLES Final Result [facility] Inf. Diseases Diag. Lab [address] [facility], [address] [place] [phone] * EKG 12 lead (06/16/2024 4:55 PM DIRECTOR DATA ARCHITECTURE) Only the most recent of2 resultswithin the time period is included. Systolic Blood Pressure mmHg RADIOLOGY RESULTS Diastolic Blood Pressure mmHg RADIOLOGY RESULTS Ventricular Rate 122 BPM RAD IOLOGY RESULTS Atrial Rate 122 BPM RADIOLOG Y RESULTS TX Interval 128 ms RADIOLOG Y RESULTS QRS Duration 74 ms RADIOLO GY RESULTS QT 314 ms RADIOLOGY RESULTS QTc 447 ms RADIOLOGY RESULTS P [place] 63 degrees RADIOLOGY RESULTS R AXIS 83 degrees RADIOLOGY RESULTS T [place] 29 degrees RADIOLOGY RESULTS Interpretation ECG Sinus tachycardia Otherwise normal ECG Unconfirmed report - interpretation of this ECG is computer generated - see medical record for final interpretation Confirmed by - EMERGENCY ROOM, PHYSICIAN ([id number]), newspaper photo editor KARLA WILLIAMSON ([id number]) on 06/17/2024 6:56:59 AM RADIOLOGY RESULTS 06/16/2024 4:55 PM DIRECTOR DATA ARCHITECTURE 06/17/2024 6:56 AM DIRECTOR DATA ARCHITECTURE us Abimael Schofield MD ECG ORDERABLES Edite d Result - Final RADIOLOGY RESULTS * XR Chest Port 1 View (06/14/2024 8:46 AM DIRECTOR DATA ARCHITECTURE) Anatomical Region Laterality Modality Chest Digital Radiogra phy Impressions 06/14/2024 8:59 AM DIRECTOR DATA ARCHITECTURE Impression: Further increase in ill-defined opacity projecting over the right lower lung concerning for pneumonia. MARIO ALBERTO BLACKWOOD MD Narrative 06/14/2024 8:59 AM DIRECTOR DATA ARCHITECTURE Exam: XR CHEST PORT 1 VIEW, 06/14/2024 [...] concerning for pneumonia. MARIO ALBERTO BLACKWOOD MD Polly Allen MD IMG DIAGNOSTIC IM AGING ORDERABLES Final Result * Respiratory Panel PCR (06/12/2024 9:34 PM DIRECTOR DATA ARCHITECTURE) [facility] Adenovirus Not Detected Not Detected 06/12/2024 11:53 PM DIRECTOR DATA ARCHITECTURE [facility] Coronavirus Not Detected Not Detected 06/12/2024 11:53 PM DIRECTOR DATA ARCHITECTURE [facility] Comment:This test detects Co ronavirus 229E, HKU1, NL63 and OC43 but does not distinguish between them. It does not detect MERS ( Respiratory Syndrome), SARS (Severe Acute Respiratory Syndrome) or 2019-nCoV (Novel 2019) Coronavirus. Human Metapneumovirus Not Detected Not Detected 06/12/2024 11:53 PM DIRECTOR DATA ARCHITECTURE [facility] Human Rhin/Enterovirus Not Detected Not Detected 06/12/2024 11:53 PM DIRECTOR DATA ARCHITECTURE [facility] Influenza A Not Detected Not Detected 06/12/2024 11:53 PM DIRECTOR DATA ARCHITECTURE [facility] Influenza A, H1 Not Detected Not Detected 06/12/2024 11:53 PM DIRECTOR DATA ARCHITECTURE [facility] Influenza A 2009 H1N1 Not Detected Not Detected 06/12/2024 11:53 PM DIRECTOR DATA ARCHITECTURE [facility] Influenza A, H3 Not Detected Not Detected 06/12/2024 11:53 PM DIRECTOR DATA ARCHITECTURE [facility] Influenza B Not Detected Not Detected 06/12/2024 11:53 PM DIRECTOR DATA ARCHITECTURE [facility] Parainfluenza Virus 1 Not Detected Not Detected 06/12/2024 11:53 PM DIRECTOR DATA ARCHITECTURE [facility] Parainfluenza Virus 2 Not Detected Not Detected 06/12/2024 11:53 PM DIRECTOR DATA ARCHITECTURE [facility] Parainfluenza Virus 3 Not Detected Not Detected 06/12/2024 11:53 PM DIRECTOR DATA ARCHITECTURE [facility] Parainfluenza Virus 4 Not Detected Not Detected 06/12/2024 11:53 PM DIRECTOR DATA ARCHITECTURE [facility] Respiratory Syncytial Virus A Not Detected Not Detected 06/12/2024 11:53 PM DIRECTOR DATA ARCHITECTURE [facility] Respiratory Syncytial Virus B Not Detected Not Detected 06/12/2024 11:53 PM DIRECTOR DATA ARCHITECTURE [facility] Chlamydia Pneumoniae Not Detected Not Detected 06/12/2024 11:53 PM DIRECTOR DATA ARCHITECTURE [facility] Mycoplasma Pneumoniae Not Detected Not Detected 06/12/2024 11:53 PM DIRECTOR DATA ARCHITECTURE [facility] Swab NASOPHARYNGEAL STRUCTURE / Unknown Non-blood Collection / Unknown 06/12/2024 9:34 PM DIRECTOR DATA ARCHITECTURE 06/12/2024 9:47 PM DIRECTOR DATA ARCHITECTURE Narrative [facility] - 06/12/2024 11:53 PM DIRECTOR DATA ARCHITECTURE The ePlex Respiratory Panel is a qualitative nucleic acid, multiplex, in vitro diagnostic test for the simultaneous detection and identification of multiple respiratory viral and bacterial nucleic acids in nasopharyngeal swabs collected in viral transport media from individual exhibiting signs and symptoms of respiratory infection. The assay has received FDA approval for the testing of nasopharyngeal (ELECTRICAL PLUMBING SUPERVISOR) swabs only. This test is used for clinical purposes and should not be regarded as investigational or for research. This laboratory is certified under the Clinical Laboratory Improvement Amendments of 1988 (CLIA-88) as qualified to perform high complexity clinical laboratory testing. Abdelrahman Goddard MD LAB - MICRO GENERAL ORDERABLES Final Result Performing Organization Address City/[facility]/ZIP Co de Phone Number [facility] Inf. Diseases Diag. Lab [address] [facility], [address] * (ABNORMAL) INR (06/12/2024 7:17 PM DIRECTOR DATA ARCHITECTURE) Only the most recent of4 resultswithin the time period is included. INR 1.37(H) 0.85 - 1.15 06/12/2024 7:54 PM DIRECTOR DATA ARCHITECTURE [facility] Blood BLOOD SPECIMEN / Unknown Venipuncture / Unknown 06/12/2024 7:17 PM DIRECTOR DATA ARCHITECTURE 06/12/2024 7:32 PM DIRECTOR DATA ARCHITECTURE Abdelrahman Goddard MD LAB - BLOOD ORDERABLES Final R esult U [facility]ATORY [facility] [place] [facility] [address] [facility], [address] [place] [phone] [place] [address] * (ABNORMAL) Blood gas venous (06/12/2024 7:17 PM DIRECTOR DATA ARCHITECTURE) pH Venous 7.38 7.32 - 7.43 06/12/2024 7:40 PM DIRECTOR DATA ARCHITECTURE [facility] pCO2 Venous 42 40 - 50 mm Hg 06/12/2024 7:40 PM DIRECTOR DATA ARCHITECTURE [facility] pO2 Venous 35 25 - 47 mm Hg 06/12/2024 7:40 PM DIRECTOR DATA ARCHITECTURE [facility] Bicarbonate Venous 24 21 - 28 mmol/L 06/12/2024 7:40 PM DIRECTOR DATA ARCHITECTURE [facility] Base Excess/Deficit Venous -0.9 -3.0 - 3.0 mmol/L 06/12/2024 7:40 PM DIRECTOR DATA ARCHITECTURE [facility] FIO2 21 JARET 06/12/2024 7:40 PM DIRECTOR DATA ARCHITECTURE [facility] Oxyhemoglobin Venous 61(L) 70 - 75 % 06/12/2024 7:40 PM DIRECTOR DATA ARCHITECTURE [facility] O2 Sat, Venous 63.9(L) 70.0 - 75.0 % 06/12/2024 7:40 PM DIRECTOR DATA ARCHITECTURE [facility] Blood, venous VENOUS LINE / Unknown Venipuncture / Unknown 06/12/2024 7:17 PM DIRECTOR DATA ARCHITECTURE 06/12/2024 7:30 PM DIRECTOR DATA ARCHITECTURE Narrative [facility] - 06/12/2024 7:40 PM DIRECTOR DATA ARCHITECTURE In healthy individuals, oxyhemoglobin (O2Hb) and oxygen saturation (SO2) are approximately equal. In the presence of dyshemoglobins, oxyhemoglobin can be considerably lower than oxygen saturation. us Abdelrahman Goddard MD LAB - BLOOD ORDERABLES Final R esult UU LABORATORY [facility] [place] [facility] [address] [facility], [address] [phone] * ECG 12-LEAD WITH MUSE (LHE) (06/11/2024 9:04 PM DIRECTOR DATA ARCHITECTURE) Only the most recent of15 resultswithin the time period is included. Systolic Blood Pressure mmHg RADIOLOGY RESULTS Diastolic Blood Pressure mmHg RADIOLOGY RESULTS Ventricular Rate 102 BPM RAD IOLOGY RESULTS Atrial Rate 102 BPM RADIOLOG Y RESULTS TX Interval 158 ms RADIOLOG Y RESULTS QRS Duration 78 ms RADIOLO GY RESULTS QT 348 ms RADIOLOGY RESULTS QTc 453 ms RADIOLOGY RESULTS P [place] 39 degrees RADIOLOGY RESULTS R AXIS 66 degrees RADIOLOGY RESULTS T [place] 33 degrees RADIOLOGY RESULTS Interpretation ECG Sinus tachycardia Nonspecific T wave abnormality Abnormal ECG When compared with ECG of 05-Jun-2024 11:40, No significant change was found Confirmed by SEE ED PROVIDER NOTE FOR, ECG INTERPRETATION (4000), newspaper photo editor SELMA GARRISON ([id number]) on 06/11/2024 9:05:27 PM RADIOLOGY RESULTS 06/11/2024 9:04 PM DIRECTOR DATA ARCHITECTURE 06/11/2024 9:05 PM DIRECTOR DATA ARCHITECTURE us Deshawn Arredondo MD ECG ORDERABLES Edited Resu lt - Final RADIOLOGY RESULTS * Influenza A/B, RSV and SARS-CoV2 PCR (COVID-19) Nasopharyngeal (06/07/2024 1:15 PM DIRECTOR DATA ARCHITECTURE) Only the most recent of3 resultswithin the time period is included. Influenza A PCR Negative Negative 06/07/2024 3:32 PM DIRECTOR DATA ARCHITECTURE [facility] Influenza B PCR Negative Negative 06/07/2024 3:32 PM DIRECTOR DATA ARCHITECTURE [facility] RSV PCR Negative Negative 06/07/2024 3:32 PM DIRECTOR DATA ARCHITECTURE [facility] SARS CoV2 PCR Negative Negative 06/07/2024 3:32 PM DIRECTOR DATA ARCHITECTURE [facility] Comment:NEGATIVE: SARS-CoV-2 (COVID-19) RNA not detected, presumed negative. Swab NASOPHARYNGEAL STRUCTURE / Unknown Non-blood Collection / Unknown 06/07/2024 1:15 PM DIRECTOR DATA ARCHITECTURE 06/07/2024 1:36 PM DIRECTOR DATA ARCHITECTURE Narrative [facility] - 06/07/2024 3:32 PM DIRECTOR DATA ARCHITECTURE Testing was performed using the Xpert Xpress CoV2/Flu/RSV Assay on the Black Drumm GeneXpert Instrument. This test should be ordered [...] management. This test was validated by the [facility]. These laboratories are certified under the Clinical Laboratory Improvement Amendments of 1988 (CLIA-88) as qualified to perfom high complexity laboratory testing. Case Samuel MD LAB - MICRO GENERAL ORDER SYD Final Result [facility] Inf. Diseases Diag. Lab [address] [facility], [address] [place] [id number] * HGB Eval Reflex to ELP or RBC Solubility (05/29/2024 11:23 AM DIRECTOR DATA ARCHITECTURE) Alpha Globin (HBA1 and HBA2) DD Bill Billed 05/31/2024 2:46 PM DIRECTOR DATA ARCHITECTURE [facility] Comment: Performed By: [email or web address] [address] [place], [place] [id number] Assistant Portfolio Manager: Devon Healy MD, PhD CLIA Number: [id number] Blood VENOUS LINE / Unknown IVAD (Port) / Unknown 05/29/2024 11:23 AM DIRECTOR DATA ARCHITECTURE 05/29/2024 11:30 AM DIRECTOR DATA ARCHITECTURE Case Samuel MD LAB CHARGE PERFORMABLES F inal Result Performing Organization Address City/[facility]/ZIP Co de Phone Number [facility] [address] [place] [address], [facility] [phone] * Bill Only- Sickle Solubility Bill (05/29/2024 11:23 AM DIRECTOR DATA ARCHITECTURE) Sickle Solubility Reflex Bill Billed 05/31/2024 2:46 PM DIRECTOR DATA ARCHITECTURE [facility] Comment: Performed By: [email or web address] [address] [place] [address] Assistant Portfolio Manager: Devon Healy MD, PhD CLIA Number: [id number] Blood VENOUS LINE / Unknown IVAD (Port) / Unknown 05/29/2024 11:23 AM DIRECTOR DATA ARCHITECTURE 05/29/2024 11:30 AM DIRECTOR DATA ARCHITECTURE us Case Sameul MD LAB CHARGE PERFORMABLES F inal Result [facility] [address] [place] [address], [facility] [phone] * Genotype Red Blood Cell (05/29/2024 11:23 AM DIRECTOR DATA ARCHITECTURE) See Scanned Result GENOTYPE RED BLOOD CELL-Scanned 05/31/2024 10:16 AM DIRECTOR DATA ARCHITECTURE [facility] Blood VENOUS LINE / Unknown IVAD (Port) / Unknown 05/29/2024 11:23 AM DIRECTOR DATA ARCHITECTURE 05/29/2024 11:29 AM DIRECTOR DATA ARCHITECTURE Case Samuel MD LAB - BLOOD ORDERABLES Fi nal Result Performing Organization Address City/[facility]/ZIP Co de Phone Number [facility] [address] [place] [address], [facility] [phone] * (ABNORMAL) HGB Eval Reflex to ELP or RBC Solubility (05/29/2024 11:23 AM DIRECTOR DATA ARCHITECTURE) Hemoglobin A 15.0(L) 95.0 - 97.9 % 05/31/2024 2:46 PM DIRECTOR DATA ARCHITECTURE [facility] Hemoglobin A2 3.0 2.0 - 3.5 % 05/31/2024 2:46 PM DIRECTOR DATA ARCHITECTURE [facility] Hemoglobin F 10.8(H) 0.0 - 2.1 % 05/31/2024 2:46 PM DIRECTOR DATA ARCHITECTURE [facility] Hemoglobin S 71.2(H) 0.0 - 0.0 % 05/31/2024 2:46 PM DIRECTOR DATA ARCHITECTURE [facility] Hemoglobin C 0.0 0.0 - 0.0 % 05/31/2024 2:46 PM DIRECTOR DATA ARCHITECTURE [facility] Hemoglobin E 0.0 0.0 - 0.0 % 05/31/2024 2:46 PM DIRECTOR DATA ARCHITECTURE [facility] Hemoglobin - Other 0.0 0.0 - 0.0 % 05/31/2024 2:46 PM DIRECTOR DATA ARCHITECTURE [facility] Hemoglobin Evaluation See Note 05/31/2024 2:46 PM DIRECTOR DATA ARCHITECTURE [facility] Comment: Impression: Hb S present Laboratory findings demonstrate the presence of Hb S. The percentage of Hb S in heterozygous Hb S (trait) ranges from 35-40% and is typically an asymptomatic condition. Homozygous Hb S (Hb SS) has predominantly Hb S without Hb A and is characterized by red blood cell sickling, severe hemolytic anemia, vaso-occlusive crisis, and other significant clinical manifestations. Lower values of Hb S can be seen in compound heterozygous conditions for Hb S and alpha thalassemia. Hb S/alpha thalassemia is typically asymptomatic and associated with microcytosis. If clinically indicated, molecular confirmation by Alpha Globin (HBA1 and HBA2) Deletion/Duplication ([email or web address] test #[id number]) should be considered. Hb S/beta-plus thalassemia is typically characterized by more Hb S than Hb A with the presence of microcytosis. If microcytosis is present and Hb S/beta-plus thalassemia is suspected, Beta Globin (HBB) Sequencing ([email or web address] test #[id number]) is suggested. Hemoglobin analysis should be offered to the patient's family members to assess carrier status. Please correlate clinically and in the context of recent transfusion history. Increased levels of Hb F can be seen in both acquired and inherited conditions. Acquired causes include , megaloblastic anemia, hematological neoplasms, aplastic anemia, paroxysmal nocturnal hemoglobinuria, hyperthyroidism, and certain drugs (e.g., hydroxyurea). Inherited conditions include hereditary persistence of hemoglobin and beta thalassemia. Please correlate clinically. INTERPRETIVE INFORMATION: Hemoglobin Evaluation, with Reflex to Electrophoresis and/or RBC Solubility This test was developed and its performance characteristics determined by [email or web address]. It has not been cleared or approved by the U.S. Food and Drug Administration. This test was performed in a CLIA-certified laboratory and is intended for clinical purposes. Sickle Cell Solubility Reflex Positive(A) 05/31/2024 2:46 PM DIRECTOR DATA ARCHITECTURE [facility] Comment: INTERPRETIVE INFORMATION: Sickle Cell Solubility Reflex Not Performed: Solubility testing for Hemoglobin S not indicated. 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 Additional charges apply. Conf Previous: Positive for Hemoglobin S by HPLC. Solubility testing performed previously and not repeated with this submission. Hgb Capillary Electrophoresis Reflex Performed 05/31/2024 2:46 PM DIRECTOR DATA ARCHITECTURE [facility] Comment: INTERPRETIVE INFORMATION: Hgb Capillary Electrophoresis Reflex Not Performed: Confirmation by Capillary Electrophoresis not indicated. Performed: Results confirmed by Capillary Electrophoresis. Additional charges apply. Conf Previous: Capillary Electrophoresis confirmation performed as part of a previous submission. Confirmation not repeated with this submission. Performed By: [email or web address] [address] [place] [address] Assistant Portfolio Manager: Devon Healy MD, PhD CLIA Number: [id number] Blood VENOUS LINE / Unknown IVAD (Port) / Unknown 05/29/2024 11:23 AM DIRECTOR DATA ARCHITECTURE 05/29/2024 11:30 AM DIRECTOR DATA ARCHITECTURE us Case Samuel MD LAB - BLOOD ORDERABLES Fi nal Result Performing Organization Address City/[facility]/ZIP Co de Phone Number [email or web address] [address] [place] [address], [facility] [phone] * (ABNORMAL) Ferritin (05/29/2024 11:23 AM DIRECTOR DATA ARCHITECTURE) Ferritin 1,559(H) 6 - 175 ng/mL 05/29/2024 12:43 PM DIRECTOR DATA ARCHITECTURE [facility] - CORE LAB Blood VENOUS LINE / Unknown IVAD (Port) / Unknown 05/29/2024 11:23 AM DIRECTOR DATA ARCHITECTURE 05/29/2024 11:29 AM DIRECTOR DATA ARCHITECTURE us Case Samuel MD LAB - BLOOD ORDERABLES Fi nal Result Performing Organization Address City/[facility]/RUST Co de Phone Number [facility] - CORE LAB [facility] [place] - [address] 1[address] [place] [address] * Urine Culture (05/29/2024 11:23 AM DIRECTOR DATA ARCHITECTURE) Culture <10,000 CFU/mL Mixture of Urogenital Vickie 05/30/2024 9:45 AM DIRECTOR DATA ARCHITECTURE [facility] Urine URINE SPECIMEN OBTAINED BY CLEAN CATCH PROCEDURE / Unknown Non-blood Collection / Unknown 05/29/2024 11:23 AM DIRECTOR DATA ARCHITECTURE 05/29/2024 11:41 AM DIRECTOR DATA ARCHITECTURE us Case Samuel MD LAB - MICRO GENERAL ORDER SYD Final Result Performing Organization Address City/[facility]/ZIP Co de Phone Number [facility] Inf. Diseases Diag. Lab [address] [facility], [address] [place] [address] * (ABNORMAL) Manual Differential (05/29/2024 12:53 AM DIRECTOR DATA ARCHITECTURE) Only the most recent of9 resultswithin the time period is included. % Neutrophils 54 % JARET 05/29/2024 1:58 AM [facility] % Lymphocytes 34 % JARET 05/29/2024 1:58 AM [facility] % Monocytes 10 % JARET 05/29/2024 1:58 AM [facility] % Eosinophils 1 % JARET 05/29/2024 1:58 AM [facility] % Basophils 1 % JARET 05/29/2024 1:58 AM [facility] Absolute Neutrophils 8.4(H) 1.6 - 8.3 10e3/uL JARET 05/29/2024 1:58 AM [facility] Absolute Lymphocytes 5.3 0.8 - 5.3 10e3/uL JARET 05/29/2024 1:58 AM [facility] Absolute Monocytes 1.6(H) 0.0 - 1.3 10e3/uL JARET 05/29/2024 1:58 AM [facility] Absolute Eosinophils 0.2 0.0 - 0.7 10e3/uL JARET 05/29/2024 1:58 AM [facility] Absolute Basophils 0.2 0.0 - 0.2 10e3/uL JARET 05/29/2024 1:58 AM [facility] NRBCs per 100 WBC 3 % JARET 05/29/2024 1:58 AM [facility] Absolute NRBCs 0.5 10e3/uL JARET 05/29/2024 1:58 AM [facility] RBC Morphology Confirmed RBC Indices JARET 05/29/2024 1:58 AM [facility] Platelet Assessment Automated Count Confirmed. Platelet morphology is normal. Automated Count Confirmed. Platelet morphology is normal. JARET 05/29/2024 1:58 AM [facility] Polychromasia Moderate(A) None Seen JARET 05/29/2024 1:58 AM [facility] Sickle Cells Moderate(A) None Seen JARET 05/29/2024 1:58 AM [facility] Blood VENOUS LINE / Unknown Venipuncture / Unknown 05/29/2024 12:53 AM DIRECTOR DATA ARCHITECTURE 05/29/2024 12:58 AM DIRECTOR DATA ARCHITECTURE us Lenin Smith MD LAB - BLOOD ORDERABLES Final Result [facility] [address] [place] [address], [facility] * IR Procedure Note (05/25/2024 2:54 PM DIRECTOR DATA ARCHITECTURE) Narrative Myron Michel MD - 05/25/2024 2:54 PM DIRECTOR DATA ARCHITECTURE Myron Michel MD 05/25/2024 2:55 PM [facility] Procedure: IR Procedure Note Date/Time: 05/25/2024 2:54 PM Performed by: Myron Michel MD Authorized by: Myron Michel MD IR Fellow Physician: Myron Michel Other(s) attending procedure: Jaswinder Cooper Pre Procedure Diagnosis: sickle cell Post Procedure Diagnosis: same UNIVERSAL PROTOCOL Site Marked: Yes Prior Images Obtained and Reviewed: Yes Required items: Required blood products, implants, devices and special equipment available Patient identity confirmed: Arm band, provided demographic data, hospital-assigned identification number and verbally with patient Patient was reevaluated immediately before administering moderate or deep sedation or anesthesia Confirmation Checklist: Correct equipment/implants were available, procedure was appropriate and matched the consent or emergent situation, relevant allergies and patient's identity using two indicators Time out: Immediately prior to the procedure a time out was called [place] Protocol: the Joint Commission [place] Protocol was followed Preparation: Patient was prepped and draped in usual sterile fashion ANESTHESIA Anesthesia: Local infiltration Local Anesthetic: Lidocaine 1% without epinephrine SEDATION Patient Sedated: Yes Sedation Type: Moderate (conscious) sedation Sedation: Fentanyl and midazolam Vital signs: Vital signs monitored during sedation See dictated procedure note for full details. Findings: Successful bilateral port placement apheresis on the right, 6 nepalese smart port on the left Specimens: none Procedural Complications: None Condition: Stable Plan: 1 hour bedrest then okay to discharge PROCEDURE Describe Procedure: Successful bilateral port placement apheresis on the right, 6 nepalese smart port on the left Patient Tolerance: Patient tolerated the procedure well with no immediate complications Length of time physician/provider present for 1:1 monitoring during sedation: 83-97 min us Myron Michel MD PROCEDURE/MINOR SURGICAL ORDERA BLES Final Result * IR Chest Port Placement > 5 Yrs of Age (05/25/2024 2:47 PM DIRECTOR DATA ARCHITECTURE) Only the most recent of2 resultswithin the time period is included. Anatomical Region Laterality Modality Chest Radio Fluoroscop y Impressions 05/25/2024 5:26 PM DIRECTOR DATA ARCHITECTURE IMPRESSION: Insertion of right-sided apheresis chest port, with catheter tip in the expected location of the cavoatrial junction. Plan: The port may be used immediately. PROCEDURE SUMMARY: - Venous access with ultrasound guidance - Tunneled port insertion under fluoroscopic guidance - Additional procedure(s): None Pre-procedure Consent: Informed consent for the procedure including risks, benefits and alternatives was obtained and time-out was performed prior to the procedure. Preparation (MIPS): The site was prepared and draped using all elements of maximal sterile barrier technique including sterile gloves, sterile gown, cap, mask, large sterile sheet, sterile ultrasound probe cover, hand hygiene and cutaneous antisepsis with 2% chlorhexidine. Medical reason for site preparation exception (MIPS): Not applicable Anesthesia/sedation Monitoring: The patient was placed on continuous monitoring. Intravenous sedation was administered. Vital signs and sedation monitored by nursing staff under Interventional Radiologists supervision. The patient remained stable throughout the procedure. Sedation times and medications represent totals for both port placements. Each port is dictated separately. Medications: 1. 400mcg Fentanyl 2. 8 mg Versed Sedation time: 97 minutes ATTENDING [id number] SEDATION TIME: less than 5 minutes. Access Local anesthesia was administered. The vessel was sonographically evaluated and determined to be patent. Real time ultrasound was used to visualize needle entry into the vessel and a permanent image was stored. Laterality: Right Vein accessed: Internal jugular vein Access technique: Micropuncture set with 21 gauge needle Port placement An incision was made at the upper chest, a pocket was created at a site of prior port to reduce scarring, and the catheter was tunneled subcutaneously to the venous access site and trimmed to appropriate length of 22.5 cm. The port was inserted into the pocket and the catheter was advanced via a peel-away sheath into the vein under fluoroscopic guidance. The port was not sutured into the pocket. Catheter tip location was fluoroscopically verified and a permanent image was stored. Port placed: BD PowerFlow apheresis port Catheter size (Lao): 9.6 Lumens: Single-lumen Power injectable: Yes Catheter tip: cavoatrial junction Catheter flush: Heparin (1000 units/mL) Closure The access site and incision were closed and sterile dressing(s) were applied. Access site closure technique: Tissue adhesive Incision closure technique: Absorbable suture and tissue adhesive Patient discharged from procedure suite with device accessed: No Contrast 0 Radiation Dose Fluoroscopy time (minutes): 2.0 Reference air kerma (mGy): 3.1 Kerma area product (uGy-cm2): 46.59 Fluoroscopic times and doses represent totals from both port placement which are separately dictated Additional Details Additional description of procedure: None Registry event: V/3/g Device used: None Equipment details: None Unique Device Identifiers: Not available Specimens removed: None Estimated blood loss (mL): Less than 10 Standardized report: SIR_Port_v3.1 I have personally reviewed the examination and initial interpretation and I agree with the findings. JASWINDER COOPER MD Narrative 05/25/2024 5:26 PM DIRECTOR DATA ARCHITECTURE PROCEDURE: Venous port placement Procedural Personnel Attending physician(s): Jaswinder Cooper Fellow physician(s): Myron Michel Resident physician(s): None Advanced practice provider(s): JASWINDER Shahid MD, attest that I was present for all critical portions of the procedure and was immediately available to provide guidance and assistance during the remainder of the procedure. Procedure Date (//yyyy): 05/25/2024 Pre-procedure diagnosis: Sickle cell Post-procedure diagnosis: Same Indication: Other- Additional clinical history: None Complications: No immediate complications. Procedure Note Jaswinder Cooper MD - 05/25/2024 PROCEDURE: Venous port placement Procedural Personnel Attending physician(s): Jaswinder Cooper Fellow physician(s): Myron Michel Resident physician(s): None Advanced practice provider(s): None I, JASWINDER COOPER MD, attest that I was present for all critical portions of the procedure and was immediately available to provide guidance and assistance during the remainder of the procedure. Procedure Date (/yyyy): 05/25/2024 Pre-procedure diagnosis: Sickle cell Post-procedure diagnosis: Same Indication: Other- Additional clinical history: None Complications: No immediate complications. IMPRESSION: Insertion of right-sided apheresis chest port, with catheter tip in the expected location of the cavoatrial junction. Plan: The port may be used immediately. PROCEDURE SUMMARY: - Venous access with ultrasound guidance - Tunneled port insertion under fluoroscopic guidance - Additional procedure(s): None Pre-procedure Consent: Informed consent for the procedure including risks, benefits and alternatives was obtained and time-out was performed prior to the procedure. Preparation (MIPS): The site was prepared and draped using all elements of maximal sterile barrier technique including sterile gloves, sterile gown, cap, mask, large sterile sheet, sterile ultrasound probe cover, hand hygiene and cutaneous antisepsis with 2% chlorhexidine. Medical reason for site preparation exception (MIPS): Not applicable Anesthesia/sedation Monitoring: The patient was placed on continuous monitoring. Intravenous sedation was administered. Vital signs and sedation monitored by nursing staff under Interventional Radiologists supervision. The patient remained stable throughout the procedure. Sedation times and medications represent totals for both port placements. Each port is dictated separately. Medications: 1. 400mcg Fentanyl 2. 8 mg Versed Sedation time: 97 minutes ATTENDING [id number] SEDATION TIME: less than 5 minutes. Access Local anesthesia was administered. The vessel was sonographically evaluated and determined to be patent. Real time ultrasound was used to visualize needle entry into the vessel and a permanent image was stored. Laterality: Right Vein accessed: Internal jugular vein Access technique: Micropuncture set with 21 gauge needle Port placement An incision was made at the upper chest, a pocket was created at a site of prior port to reduce scarring, and the catheter was tunneled subcutaneously to the venous access site and trimmed to appropriate length of 22.5 cm. The port was inserted into the pocket and the catheter was advanced via a peel-away sheath into the vein under fluoroscopic guidance. The port was not sutured into the pocket. Catheter tip location was fluoroscopically verified and a permanent image was stored. Port placed: BD PowerFlow apheresis port Catheter size (Lao): 9.6 Lumens: Single-lumen Power injectable: Yes Catheter tip: cavoatrial junction Catheter flush: Heparin (1000 units/mL) Closure The access site and incision were closed and sterile dressing(s) were applied. Access site closure technique: Tissue adhesive Incision closure technique: Absorbable suture and tissue adhesive Patient discharged from procedure suite with device accessed: No Contrast 0 Radiation Dose Fluoroscopy time (minutes): 2.0 Reference air kerma (mGy): 3.1 Kerma area product (uGy-cm2): 46.59 Fluoroscopic times and doses represent totals from both port placement which are separately dictated Additional Details Additional description of procedure: None Registry event: V/3/g Device used: None Equipment details: None Unique Device Identifiers: Not available Specimens removed: None Estimated blood loss (mL): Less than 10 Standardized report: SIR_Port_v3.1 I have personally reviewed the examination and initial interpretation and I agree with the findings. JASWINDER COOPER MD us Case Samuel MD IM IR ORDERABLES Final R esult * HCG qualitative urine (05/25/2024 12:03 PM DIRECTOR DATA ARCHITECTURE) Only the most recent of2 resultswithin the time period is included. hCG Urine Qualitative Negative Negative JARET 05/25/2024 12:34 PM DIRECTOR DATA ARCHITECTURE [facility] Comment:This test is for scr eening purposes. Results should be interpreted along with the clinical picture. Confirmation testing is available if warranted by ordering [id number], HCG Quantitative . Urine MID-STREAM URINE SPECIMEN / Unknown Non-blood Collection / Unknown 05/25/2024 12:03 PM DIRECTOR DATA ARCHITECTURE 05/25/2024 12:19 PM DIRECTOR DATA ARCHITECTURE us Jaswinder Cooper MD LAB - URINE ORDERABLES Liss bola Result LABORATORY [facility] Lab [address] [place] [address], [facility] * CT Chest Pulmonary Embolism w Contrast (05/23/2024 9:33 PM DIRECTOR DATA ARCHITECTURE) Only the most recent of2 resultswithin the time period is included. Anatomical Region Laterality Modality Chest, SUBRAD CT BODY, P CT CHEST Computed Tomography 05/23/2024 9:33 PM DIRECTOR DATA ARCHITECTURE Impressions 05/23/2024 10:12 PM DIRECTOR DATA ARCHITECTURE IMPRESSION: 1. Bilateral pulmonary nodules stable since 02/2024 exam and reported on exam dating back to February 2023. These have been reported as being cavitary in the past and as possible septic emboli. 2. These need pulmonary followup and older studies for comparison as they have not resolved. 3. Slight mosaic appearance to the lung bases. In this patient with known sickle cell disease this may be due to prior episodes of sickling rather than small airway disease. 4. Multichamber cardiac enlargement. 5. No pulmonary emboli. 6. 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 7. Other noncritical findings as noted above. Narrative 05/23/2024 10:12 PM DIRECTOR DATA ARCHITECTURE EXAM: CT CHEST PULMONARY EMBOLISM W CONTRAST LOCATION: [facility] DATE: 05/23/2024 INDICATION: patient with sickle cell. acute chest pain similar to pe in the past. COMPARISON: Chest x-ray 05/22/2024, CTA chest 05/04/2024 and 03/15/2024. Report of CT chest from [facility] from 03/13/2023 is also available. TECHNIQUE: CT chest pulmonary angiogram during arterial phase injection of IV contrast. Multiplanar reformats and MIP reconstructions were performed. Dose reduction techniques were used. CONTRAST: 75 mL of Isovue-370 FINDINGS: ANGIOGRAM CHEST: Excellent opacification of pulmonary arteries and branches. No evidence of pulmonary emboli. Aorta and branches are normal. LUNGS AND PLEURA: Bilateral pulmonary nodules, heterogeneous in size and shape are again noted little changed. Most measure a centimeter or less in size while some have become confluent. No cavitation. Slight mosaic appearance to the long in the lung bases. No effusions.. MEDIASTINUM/AXILLAE: Thyroid is normal. Multichamber cardiac enlargement. There are multiple, slightly enlarged axillary nodes, also unchanged. These measure up to a centimeter in short axis. CORONARY ARTERY CALCIFICATION: Cannot evaluate. UPPER ABDOMEN: Spleen is absent. Cholelithiasis. 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 No concerning bone lesions. Procedure Note Melody Mancini MD - 05/23/2024 EXAM: CT CHEST PULMONARY EMBOLISM W CONTRAST LOCATION: [facility] DATE: 05/23/2024 INDICATION: patient with sickle cell. acute chest pain similar to pe inthe past. COMPARISON: Chest x-ray 05/22/2024, CTA chest 05/04/2024 and 03/15/2024.Report of CT chest from [facility] from 03/13/2023 is alsoavailable. TECHNIQUE: CT chest pulmonary angiogram during arterial phase injection ofIV contrast. Multiplanar reformats and MIP reconstructions were performed.Dose reduction techniques were used. CONTRAST: 75 mL of Isovue-370 FINDINGS: ANGIOGRAM CHEST: Excellent opacification of pulmonary arteries andbranches. No evidence of pulmonary emboli. Aorta and branches are normal. LUNGS AND PLEURA: Bilateral pulmonary nodules, heterogeneous in size andshape are again noted little changed. Most measure a centimeter or less insize while some have become confluent. No cavitation. Slight mosaicappearance to the long in the lung bases. No effusions.. MEDIASTINUM/AXILLAE: Thyroid is normal. Multichamber cardiac enlargement.There are multiple, slightly enlarged axillary nodes, also unchanged.These measure up to a centimeter in short axis. CORONARY ARTERY CALCIFICATION: Cannot evaluate. UPPER ABDOMEN: Spleen is absent. Cholelithiasis. 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 No concerningbone lesions. IMPRESSION: 1. Bilateral pulmonary nodules stable since 02/2024 exam and reported onexam dating back to February 2023. These have been reported as beingcavitary in the past and as possible septic emboli. 2. These need pulmonary followup and older studies for comparison as theyhave not resolved. 3. Slight mosaic appearance to the lung bases. In this patient with knownsickle cell disease this may be due to prior episodes of sickling ratherthan small airway disease. 4. Multichamber cardiac enlargement. 5. No pulmonary emboli. 6. 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 7. Other noncritical findings as noted above. us Marilia Summers MD IMG CT ORDERABLES Final Resu lt * N terminal pro BNP outpatient (05/23/2024 9:02 PM DIRECTOR DATA ARCHITECTURE) [facility] N Terminal Pro BNP Outpatient 74 0 - 450 pg/mL 05/23/2024 9:39 PM DIRECTOR DATA ARCHITECTURE [facility] Comment: Reference range shown and results flagged as abnormal are for the outpatient, non acute settings. Establishing a baseline value for each individual patient is useful for follow-up. Suggested inpatient cut points for confirming diagnosis of CHF in an acute setting are: >450 pg/mL (age 18 to less than 50) >900 pg/mL (age 50 to less than 75) >1800 pg/mL (75 yrs and older) An inpatient or emergency department NT-proPBNP <300 pg/mL effectively rules out acute CHF, with 99% negative predictive value. Blood BLOOD SPECIMEN / Unknown Venipuncture / Unknown 05/23/2024 9:02 PM DIRECTOR DATA ARCHITECTURE 05/23/2024 9:10 PM DIRECTOR DATA ARCHITECTURE us Marilia Smumers MD LAB - BLOOD ORDERABLES Final Result [facility] [address] [place] [address] [facility], [facility] * Extra Green Top ([place] Heparin) Tube (05/20/2024 9:09 AM DIRECTOR DATA ARCHITECTURE) [facility] Hold Specimen JIC 05/20/2024 10:16 AM DIRECTOR DATA ARCHITECTURE [facility] Blood VENOUS LINE / Unknown Venipuncture / Unknown 05/20/2024 9:09 AM DIRECTOR DATA ARCHITECTURE 05/20/2024 9:14 AM DIRECTOR DATA ARCHITECTURE us Deshawn Arredondo MD LAB - BLOOD ORDERABLES Liss l Result Performing Organization Address City/[facility]/ZIP Co de Phone Number [facility] [address] [place], [place] [address] * (ABNORMAL) Hepatic function panel (05/19/2024 3:05 AM DIRECTOR DATA ARCHITECTURE) Only the most recent of4 resultswithin the time period is included. Pathologist [facility] Protein Total 7.9 6.4 - 8.3 g/dL 05/19/2024 3:37 AM [facility] Albumin 4.3 3.5 - 5.2 g/dL 05/19/2024 3:37 AM [facility] Bilirubin Total 2.6(H) <=1.2 mg/dL 05/19/2024 3:37 AM [facility] Alkaline Phosphatase 128 40 - 150 U/L 05/19/2024 3:37 AM [facility] AST 67(H) 0 - 45 U/L 05/19/2024 3:37 AM [facility] ALT 39 0 - 50 U/L 05/19/2024 3:37 AM [facility] Bilirubin Direct 0.65(H) 0.00 - 0.30 mg/dL 05/19/2024 3:37 AM [facility] Blood VENOUS LINE / Unknown Venipuncture / Unknown 05/19/2024 3:05 AM DIRECTOR DATA ARCHITECTURE 05/19/2024 3:18 AM [facility] us Marilia Summers MD LAB - BLOOD ORDERABLES Final Result [facility] [address] [facility] [place], [place] [address] * HCG QUALitative (blood) (05/19/2024 3:05 AM DIRECTOR DATA ARCHITECTURE) Only the most recent of4 resultswithin the time period is included. Pathologist [facility] hCG Serum Qualitative Negative Negative JARET 05/19/2024 3:29 AM DIRECTOR DATA ARCHITECTURE [facility] Comment:This test is for scr eening purposes. Results should be interpreted along with the clinical picture. Confirmation testing is available if warranted by ordering [id number], HCG Quantitative . Blood VENOUS LINE / Unknown Venipuncture / Unknown 05/19/2024 3:05 AM DIRECTOR DATA ARCHITECTURE 05/19/2024 3:18 AM DIRECTOR DATA ARCHITECTURE Narrative [facility] - 05/19/2024 3:29 AM DIRECTOR DATA ARCHITECTURE Lot#: [id number] Exp: 2025-09-28 us Marilia Summers MD LAB - BLOOD ORDERABLES Final Result Performing Organization Address [facility]/ZIP Co de Phone Number [facility] [address] [place] [address] [place], [facility] * (ABNORMAL) CK total (05/19/2024 3:05 AM DIRECTOR DATA ARCHITECTURE) CK 240(H) 26 - 192 U/L 05/19/2024 3:37 AM DIRECTOR DATA ARCHITECTURE [facility] Blood VENOUS LINE / Unknown Venipuncture / Unknown 05/19/2024 3:05 AM DIRECTOR DATA ARCHITECTURE 05/19/2024 3:18 AM DIRECTOR DATA ARCHITECTURE us Marilia Summers MD LAB - BLOOD ORDERABLES Final Result Performing Organization Address [facility]/[place] Co de Phone Number [address] [place] [facility], [facility] * Extra Purple Top Tube (05/13/2024 6:17 PM DIRECTOR DATA ARCHITECTURE) Hold Specimen JIC 05/13/2024 7:31 PM DIRECTOR DATA ARCHITECTURE [facility] Blood STRUCTURE OF RIGHT UPPER LIMB / Unknown Venipuncture / Unknown 05/13/2024 6:17 PM DIRECTOR DATA ARCHITECTURE 05/13/2024 6:23 PM DIRECTOR DATA ARCHITECTURE us Shaheen Unger MD LAB - BLOOD ORDERABLES Final Res ult Performing Organization Address [facility]/ZIP Co de Phone Number [facility] [address] [place] [address] [place] [address], [place] * (ABNORMAL) Vitamin D deficiency screening (04/28/2024 1:50 AM DIRECTOR DATA ARCHITECTURE) Vitamin D, Total (25-Hydroxy) 8(L) 20 - 50 ng/mL 05/01/2024 6:42 PM DIRECTOR DATA ARCHITECTURE [facility] Comment:severe deficiency Blood BLOOD SPECIMEN / Unknown Venipuncture / Unknown 04/28/2024 1:50 AM DIRECTOR DATA ARCHITECTURE 04/28/2024 1:53 AM DIRECTOR DATA ARCHITECTURE Narrative [facility] - 05/01/2024 6:42 PM DIRECTOR DATA ARCHITECTURE Season, race, dietary intake, and treatment affect the concentration of 69-ugbdfnt-Dywkttd D. Values may decrease during winter months and increase during summer months. Vitamin D determination is routinely performed by an immunoassay specific for 25 hydroxyvitamin D3. If an individual is on vitamin D2(ergocalciferol) supplementation, please specify 25 [place] vitamin D2 and D3 level determination by LCMSMS test [id number]. us Case Samuel MD LAB - BLOOD ORDERABLES Fi nal Result [facility] [address] [place] [address] * CT Pelvis Bone wo Contrast (04/19/2024 3:22 AM DIRECTOR DATA ARCHITECTURE) Anatomical Region Laterality Modality Abdomen/Pelvis, SUBRAD CT MS K, UMP CT ABDOMEN PELVIS, SUBRAD CT BODY, RAD CT Computed Tomography 04/19/2024 3:22 AM DIRECTOR DATA ARCHITECTURE Impressions 04/19/2024 4:06 AM DIRECTOR DATA ARCHITECTURE IMPRESSION: 1. Sclerosis involving the left femoral head compatible with osteonecrosis/AVN. This is greatest along the anterior superior aspect of the left femoral head. Along the anterior articular surface, there is a 1.2 cm area of lucency within the sclerosis with a subtle curvilinear subarticular fracture line. 2. 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 3. Mild AVN superior medial right femoral head. Narrative 04/19/2024 4:06 AM DIRECTOR DATA ARCHITECTURE EXAM: CT PELVIS BONE WO CONTRAST LOCATION: [facility] DATE: 04/19/2024 INDICATION: Eval L hip pain, sickle cell, ho AVN on L, continued pain and XR so far neg for fx. COMPARISON: Pelvic and hip radiographs 04/15/2024. TECHNIQUE: CT scan of the pelvis was performed without IV contrast. Multiplanar reformats were obtained. Dose reduction techniques were used. CONTRAST: None. FINDINGS: BONES: -Sclerosis representing osteonecrosis/AVN involving the anterior superior aspect of the left femoral head. Along the articular surface, there is a 1.2 cm area of lucency. At this location along the subarticular surface, there is a subtle curvilinear subarticular fracture line (/ and ). -Well-corticated osseous density along the anterior aspect of the left acetabular rim representing an old ununited fracture. -No other areas suspicious for acute fracture. -Subtle area of sclerosis involving the superior medial aspect of the right femoral head (4/51) suspicious for a small focus of AVN. -Mild chronic-appearing superior and inferior endplate compression at L5. MUSCLES/SOFT TISSUES: -No intramuscular subcutaneous hematoma. No muscle atrophy. -Intrapelvic contents unremarkable. Procedure Note Dez Arias MD - 04/19/2024 EXAM: CT PELVIS BONE WO CONTRAST LOCATION: [facility] DATE: 04/19/2024 INDICATION: Eval L hip pain, sickle cell, ho AVN on L, continued pain andXR so far neg for fx. COMPARISON: Pelvic and hip radiographs 04/15/2024. TECHNIQUE: CT scan of the pelvis was performed without IV contrast.Multiplanar reformats were obtained. Dose reduction techniques wereused. CONTRAST: None. FINDINGS: BONES: -Sclerosis representing osteonecrosis/AVN involving the anterior superioraspect of the left femoral head. Along the articular surface, there is a1.2 cm area of lucency. At this location along the subarticular surface,there is a subtle curvilinear subarticular fracture line ( and ). -Well-corticated osseous density along the anterior aspect of the leftacetabular rim representing an old ununited fracture. -No other areas suspicious for acute fracture. -Subtle area of sclerosis involving the superior medial aspect of theright femoral head (4/51) suspicious for a small focus of AVN. -Mild chronic-appearing superior and inferior endplate compression atL5. MUSCLES/SOFT TISSUES: -No intramuscular subcutaneous hematoma. No muscle atrophy. -Intrapelvic contents unremarkable. IMPRESSION: 1. Sclerosis involving the left femoral head compatible withosteonecrosis/AVN. This is greatest along the anterior superior aspect ofthe left femoral head. Along the anterior articular surface, there is a1.2 cm area of lucency within the sclerosis with a subtle curvilinear subarticular fracture line. 2. Well-corticated osseous density along the anterior aspect of the leftacetabular rim representing an old ununited acetabular osteophytefracture. 3. Mild AVN superior medial right femoral head. Juan Rodriguez MD IMG CT ORDERABLES F inal Result * Extra Red Top Tube (04/08/2024 10:22 PM DIRECTOR DATA ARCHITECTURE) [facility] Signature Hold Specimen [facility] 04/08/2024 11:31 PM DIRECTOR DATA ARCHITECTURE [facility] Blood STRUCTURE OF LEFT UPPER LIMB / Unknown Venipuncture / Unknown 04/08/2024 10:22 PM DIRECTOR DATA ARCHITECTURE 04/08/2024 10:30 PM DIRECTOR DATA ARCHITECTURE Deshawn Arredondo MD LAB - BLOOD ORDERABLES Liss l Result Performing Organization Address City/[facility]/ZIP Co de Phone Number [facility] [address] * Extra Blue Top Tube (04/08/2024 10:22 PM DIRECTOR DATA ARCHITECTURE) [facility] Hold Specimen [facility] 04/08/2024 11:31 PM DIRECTOR DATA ARCHITECTURE [facility] Blood STRUCTURE OF LEFT UPPER LIMB / Unknown Venipuncture / Unknown 04/08/2024 10:22 PM DIRECTOR DATA ARCHITECTURE 04/08/2024 10:30 PM DIRECTOR DATA ARCHITECTURE Deshawn Arredondo MD LAB - BLOOD ORDERABLES Liss l Result [facility] [address] [place] [address], [facility] * (ABNORMAL) D dimer quantitative (04/06/2024 12:45 AM DIRECTOR DATA ARCHITECTURE) [facility] D-Dimer Quantitative 1.25(H) 0.00 - 0.50 ug/mL FEU 04/06/2024 1:06 AM DIRECTOR DATA ARCHITECTURE [facility] Blood BLOOD SPECIMEN / Unknown Venipuncture / Unknown 04/06/2024 12:45 AM DIRECTOR DATA ARCHITECTURE 04/06/2024 12:52 AM DIRECTOR DATA ARCHITECTURE Narrative [facility] - 04/06/2024 1:06 AM DIRECTOR DATA ARCHITECTURE This D-dimer assay is intended for use in conjunction with a clinical pretest probability assessment model to exclude pulmonary embolism (PE) and deep venous thrombosis (DVT) in outpatients suspected of PE or DVT. The cut-off value is 0.50 ug/mL FEU. us Guille Davis DO LAB - BLOOD ORDERABLES Fin al Result [facility] [address] [place] [address], [facility] from Last 3 Months Insurance [place] For more information, please contact: [phone] * Full Code (Latest Code Status on File) Date Activated Date Inactivated Comments 06/17/2024 4:52 AM 06/20/2024 1:17 PM All basic an d advanced life-sustaining interventions are performed as appropriate Question Answer Comments Code status determined by: Discussion with patie nt/ legal decision maker * No CPR- Do NOT Intubate Date Activated Date Inactivated Comments 06/16/2024 10:45 PM 06/17/2024 4:52 AM NO basic or advanced life-sustaining interventions are performed Question Answer Comments Code status determined by: Discussion with patie nt/ legal decision maker * Full Code Date Activated Date Inactivated Comments 06/16/2024 8:58 PM 06/16/2024 10:45 PM All basic a nd advanced life-sustaining interventions are performed as appropriate Question Answer Comments Code status determined by: Unable to dis cuss and no AD/POLST on file; continue PREVIOUSLY ORDERED code status * Full Code Date Activated Date Inactivated Comments 06/12/2024 10:37 PM 06/15/2024 12:53 PM All basic and advanced life-sustaining interventions are performed as appropriate Question Answer Comments Code status determined by: Unable to dis cuss and no AD/POLST on file; continue PREVIOUSLY ORDERED code status * Full Code Date Activated Date Inactivated Comments 04/08/2024 11:25 PM 04/10/2024 12:16 PM All basi c and advanced life-sustaining interventions are performed as appropriate Question Answer Comments Code status determined by: Discussion with patie nt/ legal decision maker Care Teams Tungsten Tender Relationship Specialty Start Date End Date Veronica Joseph MD [address] [place] [address] PCP - General Family Medicine 06/18/24 Mor Ramsey Medical Student 04/03/24 Case Samuel MD [address] [place] [address] [address] [place] [address] Assigned Pediatric Specialist Provider 05/18/24 Juhi Benson, RN Specialty Roadway Engineer Hematology & Oncology 05/29/24
--- OUTSIDE RECORDS SUMMARY | 2024-06-21 22:17 | XMS_ITS | Encounter Summary ---
Author Organization [facility] Address [address] [place] [address]. [place] [address] Care Team Providers Care Float Nurse Name Role Phone No Ref-Primary, Physician Primary Care Provider Mor Ramsey Unavailable Unavailable Case Samuel MD Unavailable [phone] Juhi Benson RN Unavailable Unavailable Encounter Details Date Type Department Care Team (Latest Contact Info) Description 06/01/2024 Travel Social History Tobacco Use Types Packs/Day [...] on file Legal Sex Female 8:25 AM INTAKE MANAGER Gender Identity Not on file Sexual Orientation Not on file documented as of this encounter Plan of Treatment Not on file documented as of this encounter Goals Goal Patient Goal Type Associated Problems Recent Progress Patient-Stated? Author Pain Management General On track( 025 12:40 PM INTAKE MANAGER) Yes Juhi Benson RN Note: Goal Statement: [...] on filedocumented in this encounter Care Teams Float Nurse Relationship Specialty Start Date End Date No Ref-Primary, Physician PCP - General 03/15/24 06/17/24 Mor Ramsey Medical Student 04/03/24 Case Samuel MD [address] [place] [address] [address] [place] [address] Assigned Pediatric Specialist Provider 05/18/24 Juhi Benson RN Specialty Validation Scientist Hematology & Oncology 05/29/24 documented as of this encounter
--- OUTSIDE RECORDS SUMMARY | 2024-06-21 22:18 | XMS_ITS | Encounter Summary ---
Author Organization [facility] Address [address] [place] [address] Care Team Providers Care Integrated Circuit Fabricator Name Role Phone No Ref-Primary, Physician Primary Care Provider Mor Ramsey Unavailable Unavailable Case Samuel MD Unavailable [phone] Reason for Referral * Diagnostic Imaging MRI (Routine) - Pending Review Specialty Diagnoses / Procedures Referred By Shahid pendleton Referred To Contact Radiology. 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 If you don't hear from a maintenance representative within 2 business days, please call . Additional Information: History of hemoglobin SS disease. History of retinopathy reported from care in [place] but not in a long time. Requesting eye exam for retinopathy Comments Please be aware that coverage of these services is subject to the terms and limitations of your health insurance plan. Call member services at your health plan with any benefit or coverage questions. [facility] will call you to coordinate your care as prescribed by your provider. If you don't hear from a maintenance representative within 2 business days, please call . 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 Requesting eval for further management per ortho's expertise. Scheduling Instructions: [facility] Orthopedic Director Visual will call you to coordinate your care as prescribed by your provider. A maintenance representative will call you within 2 business days to help you schedule your appointment, or you may contact the Director Visual [employer] at: . Comments Please be aware that coverage of these services is subject to the terms and limitations of your health insurance plan. Call member services at your health plan with any benefit or coverage questions. [facility] Orthopedic Director Visual will call you to coordinate your care as prescribed by your provider. A maintenance representative will call you within 2 business days to help you schedule your appointment, or you may contact the Director Visual [employer] at: . 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 If you don t hear from a maintenance representative within 2 business days, please call . Additional Information: History of symptomatic gallstones due to sickle cell disease. Previous workup in [place], [place] ([facility]) prior to moving here. Was moving towards cholecystectomy but ended up moving sooner. Requesting eval for gallstones. Comments Please be aware that coverage of these services is subject to the terms and limitations of your health insurance plan. Call member services at your health plan with any benefit or coverage questions. [employer] will call you to coordinate your care as prescribed by the provider. If you don t hear from a maintenance representative within 2 business days, please call . ETIC FIELD CUSTODIAN Reason for Visit * Reason Comments Oncology Clinic Visit Sickle cell pain c risis * Consultation (Urgent: 3-5 Days) - Pending Review Specialty Diagnoses / Procedures Referred By Contac t Referred To Contact Medical Oncology Diagnoses 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 (H) Mor Ramsey Referral ID Status Reason Start Date Expiration Date V isits Requested Visits Authorized [id number] Pending Review 03/28/2024 03/28/2025 1 1 Encounter Details Date Type Department Care Team (Late st Contact Info) Description 05/01/2024 11:00 AM ATHLETIC FIELD CUSTODIAN Oncology Visit [facility] [address] [place] [address] Case Samuel MD [address] [facility] [address], [address] [place] [address] History of transfusion (Primary Dx); 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); Gallstones; Avascular necrosis of bone of left hip (H); 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, with sickle cell retinopathy, unspecified laterality, unspecified whether proliferative (H); Sickle cell pain crisis (H) Social History [...] in an abandoned building, in an overnight jail, or couch-surfing.) Yes 04/09/2024 Are you worried [...] on file Legal Sex Female 8:25 AM ATHLETIC FIELD CUSTODIAN Gender Identity Not on file Sexual Orientation Not on file documented as of this encounter Last Filed Vital Signs Vital Sign Reading Time Taken Comments Blood Pressure 93/62 05/01/2024 10:50 AM ATHLETIC FIELD CUSTODIAN Pulse 93 05/01/2024 10:50 AM ATHLETIC FIELD CUSTODIAN Temperature 36.8 C (98.2 F) 05/01/2024 10:50 AM ATHLETIC FIELD CUSTODIAN Respiratory Rate 16 05/01/2024 10:50 AM ATHLETIC FIELD CUSTODIAN Oxygen Saturation 98% 05/01/2024 10:50 AM ATHLETIC FIELD CUSTODIAN Inhaled Oxygen Concentration - - Weight 51 kg (112 lb 6.4 oz) 05/01/2024 10:50 AM ATHLETIC FIELD CUSTODIAN Height 159.9 cm (5' 2.95) 05/01/2024 10:[address] Body Mass Index 19.94 05/01/2024 10:50 AM ATHLETIC FIELD CUSTODIAN documented in this encounter Progress Notes * Case Samuel MD - 05/01/2024 11:00 AM CST Classical Hematology New Outpatient Visit (Sickle Cell Anemia) Date of visit: 05/01/2024 Gianna Hernández is a 29 year old female who is here for a new outpatient hematology visit for initiation of care for sickle cell disease, HbSS, referred by Mor Ramsey. Gianna is here today alone. 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 This appears to be consistent with her laboratory findings from the past, though we will confirm this. She said that she was born in [place] but moved throughout her childhood because her dad was in the . She is the youngest of 9 children she said, though she is the only one with sickle cell disease. Among other places, she was living in [place] for a time and then moved to [place]. It was there that shemet her boyfriend. She ultimately moved back to [place] and he came with her. It was there that they had a daughter Chanda, now 2 years old. That was a difficult for her, and she feelslike she never wants to be again. She was living in [place], [place] and receiving care at [facility], though she did not get the sense that vendor quality supervisor there was super comfortable with sickle cell disease. Around the time of her , there was an increase inher opioid needs and she is never been able to get back to where she was. They tried lots of different options including OxyContin on top of Dilaudid and intermittent transfusions. She also reported that she was found to have had a stroke around that time, but she was not put on chronic transfusions. The transfusions were done for pain purposes and were irregularly scheduled. She does tend to getsome drop in her hemoglobin when she has a pain crisis as well or is sick, though in recent months she has visited the emergency department multiple times a week. She thinks her last transfusion was about 3 weeks ago. She moved to [place] about 2 months ago. Her boyfriend is from the area and they felt like they would have more support for their daughter here. She has been going to the emergency department in that area, and her observation was that she is probably the only 1 with sickle cell disease in that area, based on the comments she received from the emergency department staff there. Her sense was that they knew very little about sickle cell disease, and perhaps not even the basics, and she did not feel comfortable with the type of care she was getting. She has moved around to a couple different emergency departments over the last few months, again on a quite frequent weekly basis, and had multiple recommendations to come see me. She was excited to be able to get in to clinic today. 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 She was being worked up for symptomatic gallstones back in [place], but there were some delays in getting a cholecystectomy and by the time it was getting scheduled, they were moving to [place]. 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 She said she is not on regular anticoagulation. She said she is taking hydroxyurea. She also said that she has had multiple episodes of acute chest syndrome, and it seems they have been more frequent since she has been up here. She is treated with antibiotics during those episodes. She said she had to go to the ICU and was intubated 1 time but that was many years ago. Her issues are generalized body pain, particularly in her axial skeleton. She also thinks that she has had retinopathy in the past but admits that it has been a couple years since she seen an eye doctor. She needs to get into see the dentist. She does have a primary care physician closer to home, this is where she has been getting her Dilaudid until she made it to this appointment. She said that she has an iron overload in the past, and was on Jadenu for a time, but lacks more details. She thinks that she has anxiety and perhaps some depression, but also was open enough to say that these have never really been addressed because everyone just focuses on her sickle cell disease. She was found to have AVN of her hip with a thin fracture alignment noted on CT within the last few weeks but has not seen orthopedics yet. She feels generally achy today but the pain is tolerable. She said that she does not like to get admitted, despite having to come to the emergency department on a frequent basis. If she is admitted, she prefers to stay no more than 3 days because she wants to be able to get home to see her daughter. She said that as of now, she is not working because she is darrell enough to have a boyfriend he isable to support them both so she can be a uewv-it-dlek mom. Sickle Cell Disease Comprehensive Checklist Stroke/silent cerebral infarct Hx (Y/N): Yes Bone Health/Avascular Necrosis Screening/Symptoms (each visit): AVN (left) Leg Ulcer evaluation (every visit): no Hypertension (every visit): Last ophthalmologic exam (annual): A couple years Last urinalysis for microalbuminuria/CKD (annually): unknown Last pulmonary evaluation (asthma, etc): None Last PCP Visit: Dr. Joseph Last Dental Visit: a while HbF measurement (annual): pending Vaccines: PCV13: unknown Pneumovax (q5 years) (PPSV23): unknown MenACWY (q5 years) (Menactra, Menveo): 3 doses, last in 2010 MenB one series (Scarlett, Bexsero): none Influenza: 2022 COVID19: several Note: This is an ED and inpatient STARTING POINT for pain management. It is not a static plan, nor a ceiling. Please titrate as needed and notify the primary vendor quality supervisor via [employer] message if changes to the plan below are needed. Plan last reviewed with patient: 05/01/2024 Patient background: 29 yo F, recently moved from [place] Sickle Cell Disease History Primary Precision Lens Generator/STOCK HOLDER/PA: Lizzie Genotype: SS Acute Pain Crisis Treatment: [...] Retinopathy, etc: AVN (left hip), retinopathy (right) Review of systems: A complete 14 point review of systems was completed. All were negative except for what was reportedin the HPI or highlighted here. 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) Pulmonary embolism (H) 11/2022 Retinopathy, vascular reports right side, sickle retinopathy Stroke (H) unclear location, self-report Past Surgical History: Past Surgical History: Procedure Laterality Date ARTHROPLASTY KNEE Left details unclear TONSILLECTOMY & ADENOIDECTOMY Bilateral Family History: Family History Problem Relation Age of Onset Sickle Cell Trait Daughter Social History: Social History Socioeconomic History Marital status: Single Spouse name: Not on file Number of children: Not on file Years of education: Not on file Highest education level: Not on file Occupational History Not on file Tobacco Use Smoking status: Never Smokeless tobacco: Never Substance and Sexual Activity Alcohol use: Not Currently Drug use: Never Sexual activity: Not on file Other Topics Concern Not on file Social History Narrative Not on file Social Drivers of Health Financial Resource Strain: [...] need?: No Physical Activity: Not on file Stress: Not on file Social Connections: Socially Integrated (03/28/2024) [facility] Social Connections Do you often feel lonely [...] you worried about losing your housing?: No Medications: Current Outpatient Medications Medication Sig Dispense Refill folic acid (FOLVITE) 1 MG tablet Take 2 mg by mouth daily. HYDROmorphone (DILAUDID) 2 MG tablet Take 4 mg by mouth every 4 hours as needed for severe pain. hydroxyurea (HYDREA) 500 MG capsule Take 1,000 mg by mouth 2 times daily multivitamin, therapeutic (THERA-VIT) TABS tablet Take 1 tablet by mouth daily. No current facility-administered medications for this visit. Physical Exam: BP 93/62 (BP Location: Right arm, Patient Position: Sitting, Cuff Size: Adult Regular) Pulse 93 Temp 98.2 ??F (36.8 ??C) (Oral) Resp 16 Ht 1.599 m (5' 2.95) Wt 51 kg (112 lb 6.4 oz) QdF898% BMI 19.94 kg/m?? GENERAL APPEARANCE: healthy, alert and no distress, smiling, conversant EYES: Eyes grossly normal to inspection, PERRL and conjunctivae and sclerae normal, extraocular movements intact HENT: nose and mouth without ulcers or lesions, oropharynx clear and oral mucous membranes moist, dentition is a mild concern RESP: lungs clear to auscultation - no rales, rhonchi or wheezes CV: regular rate and rhythm, normal S1 S2, no S3 or S4, no murmur, click or rub, no peripheral edema and peripheral pulses strong ABDOMEN: soft, nontender, no hepatosplenomegaly MS: no musculoskeletal defects are noted and gait is age appropriate without ataxia, well-healed surgical scar over/below left knee SKIN: no suspicious lesions or rashes NEURO: Normal strength and tone, sensory exam grossly normal, mentation intact and speech normal Labs: Recent Results (from the past 240 hours) Comprehensive metabolic panel Collection Time: 04/27/24 12:23 AM Result Value Ref Range Sodium 138 135 - 145 mmol/L Potassium 5.2 3.4 - 5.3 mmol/L Carbon Dioxide (CO2) 19 (L) 22 - 29 mmol/L Anion Gap 13 7 - 15 mmol/L Urea Nitrogen 8.5 6.0 - 20.0 mg/dL Creatinine 0.79 0.51 - 0.95 mg/dL GFR Estimate >90 >60 mL/min/1.73m2 Calcium 8.9 8.8 - 10.4 mg/dL Chloride 106 98 - 107 mmol/L Glucose 96 70 - 99 mg/dL Alkaline Phosphatase 106 40 - 150 U/L AST ALT 33 0 - 50 U/L Protein Total 8.1 6.4 - 8.3 g/dL Albumin 4.5 3.5 - 5.2 g/dL Bilirubin Total 1.8 (H) <=1.2 mg/dL Reticulocyte count Collection Time: 04/27/24 12:23 AM Result Value Ref Range % Reticulocyte 20.9 (H) 0.5 - 2.0 % Absolute Reticulocyte 0.526 (H) 0.025 - 0.095 10e6/uL CBC with platelets and differential Collection Time: 04/27/24 12:23 AM Result Value Ref Range WBC Count 13.4 (H) 4.0 - 11.0 10e3/uL RBC Count 2.62 (L) 3.80 - 5.20 10e6/uL Hemoglobin 8.6 (L) 11.7 - 15.7 g/dL Hematocrit 23.7 (L) 35.0 - 47.0 % MCV 91 78 - 100 fL MCH 32.8 26.5 - 33.0 pg MCHC 36.3 31.5 - 36.5 g/dL RDW 22.2 (H) 10.0 - 15.0 % Platelet Count 449 150 - 450 10e3/uL % Neutrophils 46 % % Lymphocytes 38 % % Monocytes 13 % % Eosinophils 2 % % Basophils 1 % % Immature Granulocytes 1 % NRBCs per 100 WBC 3 (H) <1 /100 Absolute Neutrophils 6.2 1.6 - 8.3 10e3/uL Absolute Lymphocytes 5.0 0.8 - 5.3 10e3/uL Absolute Monocytes 1.7 (H) 0.0 - 1.3 10e3/uL Absolute Eosinophils 0.2 0.0 - 0.7 10e3/uL Absolute Basophils 0.1 0.0 - 0.2 10e3/uL Absolute Immature Granulocytes 0.2 <=0.4 10e3/uL Absolute NRBCs 0.4 10e3/uL RBC and Platelet Morphology Collection Time: 04/27/24 12:23 AM Result Value Ref Range RBC Morphology Confirmed RBC Indices Platelet Assessment Automated Count Confirmed. Platelet morphology is normal. Automated Count Confirmed. Platelet morphology is normal. Polychromasia Slight (A) None Seen Sickle Cells Slight (A) None Seen Comprehensive metabolic panel Collection Time: 04/28/24 1:50 AM Result Value Ref Range Sodium 139 135 - 145 mmol/L Potassium 4.5 3.4 - 5.3 mmol/L Carbon Dioxide (CO2) 20 (L) 22 - 29 mmol/L Anion Gap 12 7 - 15 mmol/L Urea Nitrogen 6.5 6.0 - 20.0 mg/dL Creatinine 0.75 0.51 - 0.95 mg/dL GFR Estimate >90 >60 mL/min/1.73m2 Calcium 9.1 8.8 - 10.4 mg/dL Chloride 107 98 - 107 mmol/L Glucose 82 70 - 99 mg/dL Alkaline Phosphatase 111 40 - 150 U/L AST 59 (H) 0 - 45 U/L ALT 35 0 - 50 U/L Protein Total 7.7 6.4 - 8.3 g/dL Albumin 4.4 3.5 - 5.2 g/dL Bilirubin Total 2.2 (H) <=1.2 mg/dL Reticulocyte count Collection Time: 04/28/24 1:50 AM Result Value Ref Range % Reticulocyte 18.9 (H) 0.5 - 2.0 % Absolute Reticulocyte 0.529 (H) 0.025 - 0.095 10e6/uL CBC with platelets and differential Collection Time: 04/28/24 1:50 AM Result Value Ref Range WBC Count 13.8 (H) 4.0 - 11.0 10e3/uL RBC Count 2.58 (L) 3.80 - 5.20 10e6/uL Hemoglobin 8.3 (L) 11.7 - 15.7 g/dL Hematocrit 23.3 (L) 35.0 - 47.0 % MCV 90 78 - 100 fL MCH 32.2 26.5 - 33.0 pg MCHC 35.6 31.5 - 36.5 g/dL RDW 21.0 (H) 10.0 - 15.0 % Platelet Count 433 150 - 450 10e3/uL Manual Differential Collection Time: 04/28/24 1:50 AM Result Value Ref Range % Neutrophils 64 % % Lymphocytes 26 % % Monocytes 9 % % Eosinophils 0 % % Basophils 1 % Absolute Neutrophils 8.8 (H) 1.6 - 8.3 10e3/uL Absolute Lymphocytes 3.6 0.8 - 5.3 10e3/uL Absolute Monocytes 1.2 0.0 - 1.3 10e3/uL Absolute Eosinophils 0.0 0.0 - 0.7 10e3/uL Absolute Basophils 0.1 0.0 - 0.2 10e3/uL RBC Morphology Confirmed RBC Indices Platelet Assessment Automated Count Confirmed. Platelet morphology is normal. Automated Count Confirmed. Platelet morphology is normal. Polychromasia Slight (A) None Seen Sickle Cells Moderate (A) None Seen Vitamin D deficiency screening Collection Time: 04/28/24 1:50 AM Result Value Ref Range Vitamin D, Total (25-Hydroxy) 8 (L) 20 - 50 ng/mL Assessment: Gianna Hernández is a 29 year old female who was referred to hematology for initiation of care for sickle cell disease, HbSS. There was a lot to cover in today's visit, and she has had many complications from her sickle cell disease. Some of the details are unclear given have any place that she has lived, but we will work with what we have and try to piece together information as we go. Her primary complications are as follows: Chronic pain, AVN of the left hip, history of pulmonary embolism,history of transfusions with iron overload, history of stroke (details unclear), right eye retinopathy, acute on chronic anemia, gallstones, and a history of acute chest syndrome. Today's visit was is much focused on trying to triage the biggest issues alongside getting her use to our clinic procedures and recognizing where we need to fill gaps with better sickle cell care. She was very engaged in the visit and we talked about the structure of our clinic. We talked about how we have a team of providers both inpatient and outpatient, and our outpatient team encompasses both the MD, the nurse practitioner, and the RNCC. She was supportive of the strategy of having multip le providers that she knows. Even though she lives in [place], she is very willing to come to the [place] to get her care and use the infusion clinic to stay out of the emergency department is much as possible, because she has seen what can happen when she has suboptimal sickle cell care or goes to centers or emergency departments where they are not comfortable with sickle cell disease. We did talk about her holistic view of sickle cell care and prioritizing the person rather than just a disease. We discussed that systemic racism is a legitimate problem that we are trying to address, but we still work to do. I offered, as I do for all patients, the openness to discuss these issueswhen she faces them and address them directly with me if she feels like I have said something offensive. She appreciated the open this of this kind of discussion as well as starting to recognize, almost with tearfulness, that anxiety and depression may be worsening some of her pain but she has never had that actually directly discussed. Related to this, I was clear that while I am happy to manage her home opioids with her current dosing, she should not expect me to go up on dosing with the frequency that she is coming to the emergency department but rather try to get at the core what is causing some pain and over time has a goal of decreasing that opioid use. She was okay with this approach. Based on today's visit, we will try to hit the higher priority points for optimizing her comprehensive care but this will take time. She also is in need of some healthcare maintenance around vaccinesand dental care. HbSS Disease with several complications listed below -Labs: ordered CBC, retic, CMP, ferritin, RBC genotype, Hb ELP, and UA (not clear why UA was not performed). -Offered access to in the infusion clinic. -Set up her pain plan in collaboration with her. -Ordered her hydroxyurea, folic acid, and home Dilaudid. We will plan on weekly refills of Dilaudidfor now but I will offer her more to have at home than she had had previously. She will get 4 mg oral Dilaudid every 6 hours as needed. Encouraged ibuprofen and Tylenol use as well and that we can add in muscle relaxants or other adjuncts if needed. History of gallstones and intermittent cholecystitis -Some of the records may be in care everywhere. It sounds like she was on her way to get a cholecystectomy before moving here. -Sent GI referral for ongoing management. History of left hip AVN with hairline fracture -She describes this is a pretty recent diagnosis, but I found documentation going back at least to 2020 which describes the same findings. -I encouraged continued ambulation as able to keep the muscles around the hip and femur strong. -Orthopedic millroom supervisor referral placed. Will defer to them for long-term management History of Retinopathy -Severity is unclear, and it has been several years since she has gone to the eye doctor. -Ophthalmology referral placed History of Stroke -Details are unclear, and we need to get a head MRI at some point to understand. Regardless, she describes a pretty clear onset of symptoms, and due to the number of places she has been, we do not get all the records in care everywhere. -We will work to get in port placement (ideally 2 ports, 1 apheresis capable, per our typical protocol at this institution for chronic ongoing exchange transfusions). IR consult placed -Apheresis order placed. Healthcare maintenance -Vitamin D Deficiency: Ordering vitamin D replacement -Will need to get full series of PPSV23, Men B, and Men ACWY booster -Already has PCP close to home, which is fine with me. Follow up plan: 1 month with me Thank you for the opportunity to participate in Gianna Hernández's care. Please feel free to reach out with any questions you may have. 80 minutes spent by me on the date of the encounter doing chart review, history and exam, documentation and further activities per the note Case Samuel MD [employer] Division of Hematology, Oncology, and Transplantation [facility] ETIC FIELD CUSTODIAN ETIC FIELD CUSTODIAN documented in this encounter Nursing Notes * Patricia Swan - 05/01/2024 11:00 AM CST Oncology Rooming Note May 01, 2024 10:55 AM Gianna Hernández is a 29 year old female who presents for: Chief Complaint Patient presents with Oncology Clinic Visit Sickle cell pain crisis Initial Vitals: BP 93/62 (BP Location: Right arm, Patient Position: Sitting, Cuff Size: Adult Regular) Pulse 93 Temp 98.2 ??F (36.8 ??C) (Oral) Resp 16 Ht 1.599 m (5' 2.95) Wt 51 kg (112 lb 6.4 oz) SpO2 98% BMI 19.94 kg/m?? Estimated body mass index is 19.94 kg/m?? as calculated from the following: Height as of this encounter: 1.599 m (5' 2.95). Weight as of this encounter: 51 kg (112 lb 6.4 oz). Body surface area is 1.51 meters squared. Severe Pain (6) Comment: Data Unavailable No LMP recorded. Patient has had an implant. Allergies reviewed: Yes Medications reviewed: Yes Medications: MEDICATION REFILLS NEEDED TODAY. Provider was notified. Pharmacy name entered into Application Security: [facility] [address] [facility], [place] - [facility] [facility] [place], [place] - [address] [facility] Frailty Screening: Is the patient here for a new oncology consult visit in cancer care? 2. No Clinical concerns: Patient states no new concerns to discuss with provider. 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) Gallstones Expected: 05/01/2024 (Approximate), Expires: 05/01/2025 Orthopedic Director Visual Referral Referral Routine: Next available opening 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 Author Pain Management General On track( 025 12:40 PM ATHLETIC FIELD CUSTODIAN) Yes Juhi Benson, RN Note: Goal Statement: [...] medication remaining. documented as of this encounter Results * Genotype Red Blood Cell (05/29/2024 11:23 AM ATHLETIC FIELD CUSTODIAN) See Scanned Result GENOTYPE RED BLOOD CELL-Scanned 05/31/2024 10:16 AM ATHLETIC FIELD CUSTODIAN [facility] Blood VENOUS LINE / Unknown IVAD (Port) / Unknown 05/29/2024 11:23 AM ATHLETIC FIELD CUSTODIAN 05/29/2024 11:29 AM ATHLETIC FIELD CUSTODIAN us Case Samuel MD LAB - BLOOD ORDERABLES Fi nal Result [facility] [address] [place] [address], [facility] [phone] * (ABNORMAL) HGB Eval Reflex to ELP or RBC Solubility (05/29/2024 11:23 AM ATHLETIC FIELD CUSTODIAN) Hemoglobin A 15.0(L) 95.0 - 97.9 % 05/31/2024 2:46 PM ATHLETIC FIELD CUSTODIAN [facility] Hemoglobin A2 3.0 2.0 - 3.5 % 05/31/2024 2:46 PM ATHLETIC FIELD CUSTODIAN [facility] Hemoglobin F 10.8(H) 0.0 - 2.1 % 05/31/2024 2:46 PM ATHLETIC FIELD CUSTODIAN [facility] Hemoglobin S 71.2(H) 0.0 - 0.0 % 05/31/2024 2:46 PM ATHLETIC FIELD CUSTODIAN [facility] Hemoglobin C 0.0 0.0 - 0.0 % 05/31/2024 2:46 PM ATHLETIC FIELD CUSTODIAN [facility] Hemoglobin E 0.0 0.0 - 0.0 % 05/31/2024 2:46 PM ATHLETIC FIELD CUSTODIAN [facility] Hemoglobin - Other 0.0 0.0 - 0.0 % 05/31/2024 2:46 PM ATHLETIC FIELD CUSTODIAN [facility] Hemoglobin Evaluation See Note 05/31/2024 2:46 PM ATHLETIC FIELD CUSTODIAN [facility] Comment: Impression: Hb S present [...] by Alpha Globin (HBA1 and HBA2) Deletion/Duplication ([employer] test #[id number]) should be considered. Hb S/beta-plus thalassemia is typically characterized by more Hb S than Hb A with the presence of microcytosis. If microcytosis is present and Hb S/beta-plus thalassemia is suspected, Beta Globin (HBB) Sequencing ([employer] test #[id number]) is suggested. Hemoglobin analysis should be offered [...] developed and its performance characteristics determined by [facility]. It has not been cleared or approved by the U.S. Food and Drug Administration. This test was performed in a CLIA-certified laboratory and is intended for clinical purposes. Sickle Cell Solubility Reflex Positive(A) 05/31/2024 2:46 PM ATHLETIC FIELD CUSTODIAN [facility] Comment: INTERPRETIVE INFORMATION: Sickle Cell Solubility Reflex Not Performed: Solubility testing for Hemoglobin S not indicated. 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 Additional charges apply. Conf Previous: Positive for Hemoglobin S by HPLC. Solubility testing performed previously and not repeated with this submission. Hgb Capillary Electrophoresis Reflex Performed 05/31/2024 2:46 PM ATHLETIC FIELD CUSTODIAN [facility] Comment: INTERPRETIVE INFORMATION: Hgb Capillary Electrophoresis Reflex Not Performed: Confirmation by Capillary Electrophoresis not indicated. Performed: Results confirmed by Capillary Electrophoresis. Additional charges apply. Conf Previous: Capillary Electrophoresis confirmation performed as part of a previous submission. Confirmation not repeated with this submission. Performed By: [facility] [address] [place] [id number] Dental Appliance Repairer: Devon Healy MD, PhD CLIA Number: [id number] Blood VENOUS LINE / Unknown IVAD (Port) / Unknown 05/29/2024 11:23 AM ATHLETIC FIELD CUSTODIAN 05/29/2024 11:30 AM ATHLETIC FIELD CUSTODIAN Case Samuel MD LAB - BLOOD ORDERABLES Fi nal Result [facility] [address] [place] [id number], [facility] [phone] * (ABNORMAL) Ferritin (05/29/2024 11:23 AM ATHLETIC FIELD CUSTODIAN) Ferritin 1,559(H) 6 - 175 ng/mL 05/29/2024 12:43 PM ATHLETIC FIELD CUSTODIAN [facility] Blood VENOUS LINE / Unknown IVAD (Port) / Unknown 05/29/2024 11:23 AM ATHLETIC FIELD CUSTODIAN 05/29/2024 11:29 AM ATHLETIC FIELD CUSTODIAN Case Samuel MD LAB - BLOOD ORDERABLES Fi nal Result [facility] [address] 1st [place] [address] * (ABNORMAL) Routine UA with micro reflex to culture (05/29/2024 11:23 AM ATHLETIC FIELD CUSTODIAN) Color Urine Yellow Colorless, Straw, Light Yellow, Yellow 05/29/2024 11:41 AM ATHLETIC FIELD CUSTODIAN [facility] Appearance Urine Slightly Cloudy(A) Clear 05/29/2024 11:41 AM ATHLETIC FIELD CUSTODIAN [facility] Glucose Urine Negative Negative mg/dL 05/29/2024 11:41 AM [facility] Bilirubin Urine Negative Negative 11:41 AM [facility] Ketones Urine Negative Negative mg/dL 05/29/2024 11:41 AM [facility] Specific [place] Urine 1.013 1.003 - 1.035 05/29/2024 11:41 AM [facility] Blood Urine Negative Negative 05/29/2024 11:41 AM [facility] pH Urine 7.0 5.0 - 7.0 05/29/2024 11:41 AM ATHLETIC FIELD CUSTODIAN [facility] Protein Albumin Urine Negative Negative mg/dL 05/29/2024 11:41 AM [facility] Urobilinogen Urine Normal Normal, 2.0 mg/dL 05/29/2024 11:41 AM [facility] Nitrite Urine Negative Negative 05/29/2024 11:41 AM [facility] Leukocyte Esterase Urine Moderate(A) Negative 05/29/2024 11:41 AM ATHLETIC FIELD CUSTODIAN [facility] Mucus Urine Present(A) None Seen /LPF 05/29/2024 11:41 AM [facility] RBC Urine 6(H) <=2 /HPF 05/29/2024 11:41 AM [facility] WBC Urine 3 <=5 /HPF 05/29/2024 11:41 AM [facility] Squamous Epithelials Urine 18(H) <=1 /HPF 05/29/2024 11:41 AM [facility] Urine URINE SPECIMEN OBTAINED BY CLEAN CATCH PROCEDURE / Unknown Non-blood Collection / Unknown 05/29/2024 11:23 AM ATHLETIC FIELD CUSTODIAN 05/29/2024 11:29 AM ATHLETIC FIELD CUSTODIAN Narrative [facility] - 05/29/2024 11:41 AM ATHLETIC FIELD CUSTODIAN Urine Culture ordered based on laboratory criteria us Case Samuel MD LAB - URINE ORDERABLES Fi nal Result [facility] [address] [facility] 1st [place] [address] * (ABNORMAL) Comprehensive metabolic panel (05/29/2024 11:23 AM ATHLETIC FIELD CUSTODIAN) Sodium 139 135 - 145 mmol/L 05/29/2024 11:58 AM [facility] Potassium 4.2 3.4 - 5.3 mmol/L 05/29/2024 11:58 AM [facility] Carbon Dioxide (CO2) 24 22 - 29 mmol/L 05/29/2024 11:58 AM [facility] Anion Gap 10 7 - 15 mmol/L 05/29/2024 11:58 AM [facility] Urea Nitrogen 9.2 6.0 - 20.0 mg/dL 05/29/2024 11:58 AM [facility] Creatinine 0.75 0.51 - 0.95 mg/dL 05/29/2024 11:58 AM [facility] GFR Estimate >90 >60 mL/min/1.7 3m2 05/29/2024 11:58 AM [facility] Comment:eGFR calculated usin 2020 CKD-EPI equation. Calcium 8.9 8.8 - 10.4 mg/dL 05/29/2024 11:58 AM [facility] Chloride 105 98 - 107 mmol/L 05/29/2024 11:58 AM [facility] Glucose 109(H) 70 - 99 mg/dL 05/29/2024 11:58 AM [facility] Alkaline Phosphatase 83 40 - 150 U/L 05/29/2024 11:58 AM [facility] AST 49(H) 0 - 45 U/L 05/29/2024 11:58 AM [facility] ALT 21 0 - 50 U/L 05/29/2024 11:58 AM [facility] Protein Total 7.3 6.4 - 8.3 g/dL 05/29/2024 11:58 AM [facility] Albumin 4.1 3.5 - 5.2 g/dL 05/29/2024 11:58 AM [facility] Bilirubin Total 2.2(H) <=1.2 mg/dL 05/29/2024 11:58 AM [facility] Blood VENOUS LINE / Unknown IVAD (Port) / Unknown 05/29/2024 11:23 AM ATHLETIC FIELD CUSTODIAN 05/29/2024 11:29 AM ATHLETIC FIELD CUSTODIAN us Case Samuel MD LAB - BLOOD ORDERABLES Fi nal Result [facility] [address] [facility] 1st [place] [address] * (ABNORMAL) Reticulocyte count (05/29/2024 11:23 AM ATHLETIC FIELD CUSTODIAN) % Reticulocyte 29.8(H) 0.5 - 2.0 % 05/29/2024 12:00 PM ATHLETIC FIELD CUSTODIAN [facility] Absolute Reticulocyte 0.631(H) 0.025 - 0.095 10e6/uL 05/29/2024 12:00 PM ATHLETIC FIELD CUSTODIAN [facility] Blood VENOUS LINE / Unknown IVAD (Port) / Unknown 05/29/2024 11:23 AM ATHLETIC FIELD CUSTODIAN 05/29/2024 11:29 AM ATHLETIC FIELD CUSTODIAN Case Samuel MD LAB - BLOOD ORDERABLES Fi nal Result [facility] [address] 1st [place] [address] * (ABNORMAL) Vitamin D deficiency screening (04/28/2024 1:50 AM ATHLETIC FIELD CUSTODIAN) Vitamin D, Total (25-Hydroxy) 8(L) 20 - 50 ng/mL 05/01/2024 6:42 PM ATHLETIC FIELD CUSTODIAN [facility] Comment:severe deficiency Blood BLOOD SPECIMEN / Unknown Venipuncture / Unknown 04/28/2024 1:50 AM ATHLETIC FIELD CUSTODIAN 04/28/2024 1:53 AM ATHLETIC FIELD CUSTODIAN Narrative [facility] - 05/01/2024 6:42 PM ATHLETIC FIELD CUSTODIAN Season, race, dietary intake, and treatment affect the concentration of 61-[id number]-[id number] D. Values may decrease during winter months and increase during summer months. Vitamin D determination is routinely performed by an immunoassay specific for 25 hydroxyvitamin D3. If an individual is on vitamin D2(ergocalciferol) supplementation, please specify 25 [place] vitamin D2 and D3 level determination by LCMSMS test VITD23. us Case Samuel MD LAB - BLOOD ORDERABLES Fi nal Result [facility] [place] [facility] [address] 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, with sickle cell retinopathy, unspecified laterality, unspecified whether proliferative (H) 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 documented in this encounter Additional Health Concerns Infection Onset Date Last Indicated Resolved Time Rule Out COVID-05/08/2024 05/08/2024 05/08/2024 8:18 PM ATHLETIC FIELD CUSTODIAN Rule Out COVID-05/16/2024 05/16/2024 05/16/2024 10:46 PM ATHLETIC FIELD CUSTODIAN documented as of this encounter Care Teams Integrated Circuit Fabricator Relationship Specialty Start Date End Date No Ref-Primary, Physician PCP - General 03/15/24 06/17/24 Mor Ramsey Medical Student 04/03/24 Case Samuel MD [address] [place] [address] 484, [address] [place] [address] Assigned Pediatric Specialist Provider 05/18/24 documented as of this encounter
--- OUTSIDE RECORDS SUMMARY | 2024-06-21 22:18 | XMS_ITS | Encounter Summary ---
Author Organization [facility] Address [facility] [place] [address] Care Team Providers Care Meat Molder Name Role Phone No Ref-Primary, Physician Primary Care Provider Mor Ramsey Unavailable Unavailable Case Samuel MD Unavailable [phone] Juhi Benson RN Unavailable Unavailable Reason for Referral * Mental Health Outpatient (Urgent: 3-5 Days) - Pending Review Specialty Diagnoses / Procedures Referred By Contac t Referred To Contact Behavioral Health Diagnoses Severe episode of recurrent major depressive disorder, without psychotic features (H) Case Samuel MD [address] [facility] [address], [address] [place] [address] Phone: tel: fax: Referral ID Status Reason Start Date Expiration Date V isits Requested Visits Authorized [id number] Pending Review 05/29/2024 05/29/2025 1 1 Question Answer Services: Assess/Evaluate for appropriate service (non-medication assessment) My Clinical Question Is: History of chronic pain with depression as major component combined with sickle cell disease and difficulty adjusting to [place]. Requesting evaluation for mental health diagnosis and management. Patient Scheduling Instructions: [facility] will call you to coordinate your care as prescribed by your provider. If you don't hear from a software sales representative within 2 business days, please call . Only select yes if the patient has already been scheduled and requires a referral for insurance. If yes is selected, the referral will NOT route to scheduling for outreach. No Comments Please be aware that coverage of these services is subject to the terms and limitations of your health insurance plan. Call member services at your health plan with any benefit or coverage questions. [facility] will call you to coordinate your care as prescribed by your provider. If you don't hear from a software sales representative within 2 business days, please call . HEMMER Reason for Visit * Reason Comments Port Draw Labs drawn via port by RN in lab, vitals taken. 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) Social History Tobacco Use Types [...] in an abandoned building, in an overnight intermediate, or couch-surfing.) Yes 04/09/2024 Are you worried [...] on file Legal Sex Female 8:25 AM SIDE HEMMER Gender Identity Not on file Sexual Orientation Not on file documented as of this encounter Last Filed Vital Signs Vital Sign Reading Time Taken Comments Blood Pressure 98/67 05/29/2024 11:09 AM SIDE HEMMER Pulse 106 05/29/2024 11:09 AM SIDE HEMMER Temperature 37.1 C (98.7 F) 05/29/2024 11:09 AM SIDE HEMMER Respiratory Rate 18 05/29/2024 11:09 AM SIDE HEMMER Oxygen Saturation 96% 05/29/2024 11:09 AM SIDE HEMMER Inhaled Oxygen Concentration - - Weight 54.6 kg (120 lb 6.4 oz) 05/29/2024 11:09 AM SIDE HEMMER Height - - Body Mass Index 22.75 05/29/2024 12:01 AM SIDE HEMMER documented in this encounter Progress Notes * Case Samuel MD - 05/29/2024 11:30 AM CST Classical Hematology Follow Up Outpatient Visit (Sickle Cell Anemia) Date of visit: 05/29/2024 Gianna Hernández is a 29 year old female who is here for a 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 Gianna is here today with her daughter Chanda Interval Visit Gianna was here in clinic for the first time a month ago. Since that time, she has been in the emergency department nearly daily, though she has not been admitted. She said her pain is pretty frequent, and 3 doses of Dilaudid in the ED seem to help for a time, but they do not last. She recognizes that it may be reflective that this is different than sickle cell pain, but still struggles with dealing with the pain at home. She said it has been hard to transition to [place], especially in winter with a toddler. She has found it tough to build a network in these first 3 months, which makes her pain worse as well. She says it she has felt depressed at times, more than anxious, but is not sure what else to do. She has not been on any medications for depression or anxiety in the past but is open to getting more help. She has not had any illness symptoms. She has found that the emergency department has generally been supportive, though she has since a bit of frustration from them with her regular visits. She does find it hard to be able to get to our infusion clinic given the distance, but at a minimum, she is hoping to get transfused this week and could get pain medicines then as well. She does feel a bit more fatigued, and that can happen depending on where she is and her transfusion courses, but she does not know whether transfusions offer any assistance to her pain. 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 This appears to be consistent with her laboratory findings from the past, though we will confirm this. She said that she was born in [place] but moved throughout her childhood because her dad was in the . She is the youngest of 9 children she said, though she is the only one with sickle cell disease. Among other places, she was living in [place] for a time and then moved to [place]. It was there that shemet her boyfriend. She ultimately moved back to [place] and he came with her. It was there that they had a daughter Chanda, now 2 years old. That was a difficult for her, and she feelslike she never wants to be again. She was living in [place], [place] and receiving care at [facility], though she did not get the sense that pocket grinder operator there was super comfortable with sickle cell [...] about 3 weeks ago. She moved to [place] about 2 months ago. Her boyfriend is from the area and they felt like they would have more support for their daughter here. She has been going to the emergency department in that area, and her observation was that she is probably the only one with sickle cell disease in that area, [...] worked up for symptomatic gallstones back in [place], but there were some delays in getting a cholecystectomy and by the time it was getting scheduled, they were moving to [place]. She reports that she has had a [...] them both so she can be a [id number] mom. Sickle Cell Disease Comprehensive Checklist Stroke/silent cerebral infarct Hx (Y/N): Yes Bone Health/Avascular Necrosis Screening/Symptoms (each visit): AVN (left) Leg Ulcer evaluation (every visit): no Hypertension (every visit): none today Last ophthalmologic exam (annual): A couple years Last urinalysis for microalbuminuria/CKD (annually): 05/29/24 (none noted) Last pulmonary evaluation (asthma, etc): None Last PCP Visit: Dr. Joseph Last Dental Visit: a while HbF measurement (annual): 11% (04/2024) Vaccines: PCV13: unknown Pneumovax (q5 years) (PPSV23): unknown MenACWY (q5 years) (Menactra, Menveo): 3 doses, last in 2010 MenB one series (Trumemba, Bexsero): none Influenza: 2022 COVID19: several Note: This is an ED and inpatient STARTING POINT for pain management. It is not a static plan, nor a ceiling. Please titrate as needed and notify the primary pocket grinder operator via Websense message if changes to the plan below are needed. Also please note that there is a mental health component to her pain, particularly in terms of adjustment to [place] which is likely to make her pain worse.. 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 She is 1 of 9 [...] Social Connections: Socially Integrated (03/28/2024) [facility] Do you often feel lonely [...] as needed for severe pain. 30 tablet 0 hydroxyurea (HYDREA) 500 MG capsule Take 2 capsules (1,000 mg) by mouth 2 times daily 120 capsule 11 multivitamin, therapeutic (THERA-VIT) TABS tablet Take 1 tablet by mouth daily. 30 tablet 11 No current facility-administered medications for this visit. Physical Exam: BP 98/67 (BP Location: Right arm, Patient Position: Sitting, Cuff Size: Adult Regular) Pulse 106 Resp 18 Wt 54.6 kg (120 lb 6.4 oz) BMI 22.75 kg/m?? GENERAL APPEARANCE: healthy, alert and no distress, smiling, conversant though she seems a bit tired, having been in the emergency department just yesterday EYES: Eyes grossly normal to inspection, PERRL and conjunctivae and sclerae normal, extraocular movements intact HENT: nose and mouth without ulcers or lesions, oropharynx clear and oral mucous membranes moist, dentition is a mild concern RESP: lungs clear to auscultation - no rales, rhonchi or wheezes CV: regular rate and rhythm MS: no musculoskeletal defects are noted and gait is age appropriate without ataxia, well-healed surgical scar over/below left knee SKIN: no suspicious lesions or rashes NEURO: Normal strength and tone, sensory exam grossly normal, mentation intact and speech normal Labs: Recent Results (from the past 240 hours) ECG 12-LEAD WITH MUSE (LHE) Collection Time: 05/20/24 7:36 AM Result Value Ref Range Systolic Blood Pressure 111 mmHg Diastolic Blood Pressure 56 mmHg Ventricular Rate 86 BPM Atrial Rate 86 BPM ME Interval 154 ms QRS Duration 78 ms QT 370 ms QTc 442 ms P [place] 18 degrees R AXIS 55 degrees T [place] 25 degrees Interpretation ECG Sinus rhythm Nonspecific T wave abnormality Abnormal ECG When compared with ECG of 14-May-2024 22:12, Nonspecific T wave abnormality now evident in Inferior leads Confirmed by SEE ED PROVIDER NOTE FOR, ECG INTERPRETATION ([id number]), newspaper managing editor Neeraj Allison ([id number]) on 05/20/2024 7:48:17 AM Basic metabolic panel Collection Time: 05/20/24 8:21 AM Result Value Ref Range Sodium 136 135 - 145 mmol/L Potassium 5.1 3.4 - 5.3 mmol/L Chloride 105 98 - 107 mmol/L Carbon Dioxide (CO2) 21 (L) 22 - 29 mmol/L Anion Gap 10 7 - 15 mmol/L Urea Nitrogen 7.5 6.0 - 20.0 mg/dL Creatinine 0.84 0.51 - 0.95 mg/dL GFR Estimate >90 >60 mL/min/1.73m2 Calcium 9.1 8.8 - 10.4 mg/dL Glucose 95 70 - 99 mg/dL Reticulocyte count Collection Time: 05/20/24 9:09 AM Result Value Ref Range % Reticulocyte 25.1 (H) 0.5 - 2.0 % Absolute Reticulocyte 0.646 (H) 0.025 - 0.095 10e6/uL CBC with platelets and differential Collection Time: 05/20/24 9:09 AM Result Value Ref Range WBC Count 16.0 (H) 4.0 - 11.0 10e3/uL RBC Count 2.57 (L) 3.80 - 5.20 10e6/uL Hemoglobin 8.4 (L) 11.7 - 15.7 g/dL Hematocrit 23.7 (L) 35.0 - 47.0 % MCV 92 78 - 100 fL MCH 32.7 26.5 - 33.0 pg MCHC 35.4 31.5 - 36.5 g/dL RDW 22.8 (H) 10.0 - 15.0 % Platelet Count 541 (H) 150 - 450 10e3/uL % Neutrophils 59 % % Lymphocytes 23 % % Monocytes 15 % % Eosinophils 2 % % Basophils 1 % % Immature Granulocytes 1 % NRBCs per 100 WBC 2 (H) <1 /100 Absolute Neutrophils 9.4 (H) 1.6 - 8.3 10e3/uL Absolute Lymphocytes 3.6 0.8 - 5.3 10e3/uL Absolute Monocytes 2.4 (H) 0.0 - 1.3 10e3/uL Absolute Eosinophils 0.3 0.0 - 0.7 10e3/uL Absolute Basophils 0.2 0.0 - 0.2 10e3/uL Absolute Immature Granulocytes 0.2 <=0.4 10e3/uL Absolute NRBCs 0.2 10e3/uL Extra Green Top ([place] Heparin) Tube Collection Time: 05/20/24 9:09 AM Result Value Ref Range Hold Specimen [facility] Basic metabolic panel Collection Time: 05/20/24 9:09 AM Result Value Ref Range Sodium 137 135 - 145 mmol/L Potassium 4.8 3.4 - 5.3 mmol/L Chloride 105 98 - 107 mmol/L Carbon Dioxide (CO2) 22 22 - 29 mmol/L Anion Gap 10 7 - 15 mmol/L Urea Nitrogen 7.4 6.0 - 20.0 mg/dL Creatinine 0.82 0.51 - 0.95 mg/dL GFR Estimate >90 >60 mL/min/1.73m2 Calcium 9.3 8.8 - 10.4 mg/dL Glucose 107 (H) 70 - 99 mg/dL RBC and Platelet Morphology Collection Time: 05/20/24 9:09 AM Result Value Ref Range RBC Morphology Confirmed RBC Indices Platelet Assessment Automated Count Confirmed. Platelet morphology is normal. Automated Count Confirmed. Platelet morphology is normal. Polychromasia Slight (A) None Seen Reactive Lymphocytes Present (A) None Seen Sickle Cells Moderate (A) None Seen Target Cells Slight (A) None Seen ECG 12-LEAD WITH MUSE (LHE) Collection Time: 05/22/24 3:14 PM Result Value Ref Range Systolic Blood Pressure mmHg Diastolic Blood Pressure mmHg Ventricular Rate 103 BPM Atrial Rate 103 BPM ME Interval 124 ms QRS Duration 80 ms QT 316 ms QTc 413 ms P [place] 82 degrees R AXIS 90 degrees T [place] 70 degrees Interpretation ECG Sinus tachycardia Rightward axis Borderline ECG When compared with ECG of 20-May-2024 07:36, Nonspecific T wave abnormality no longer evident in Anterior leads Confirmed by SEE ED PROVIDER NOTE FOR, ECG INTERPRETATION ([id number]), newspaper managing editor Leticia Warner ([id number]) on 05/22/2024 4:13:58 PM Basic metabolic panel Collection Time: 05/22/24 3:51 PM Result Value Ref Range Sodium 138 135 - 145 mmol/L Potassium 4.8 3.4 - 5.3 mmol/L Chloride 107 98 - 107 mmol/L Carbon Dioxide (CO2) 20 (L) 22 - 29 mmol/L Anion Gap 11 7 - 15 mmol/L Urea Nitrogen 9.9 6.0 - 20.0 mg/dL Creatinine 0.91 0.51 - 0.95 mg/dL GFR Estimate 87 >60 mL/min/1.73m2 Calcium 9.6 8.8 - 10.4 mg/dL Glucose 100 (H) 70 - 99 mg/dL CBC with platelets and differential Collection Time: 05/22/24 3:51 PM Result Value Ref Range WBC Count 14.5 (H) 4.0 - 11.0 10e3/uL RBC Count 2.59 (L) 3.80 - 5.20 10e6/uL Hemoglobin 8.2 (L) 11.7 - 15.7 g/dL Hematocrit 23.4 (L) 35.0 - 47.0 % MCV 90 78 - 100 fL MCH 31.7 26.5 - 33.0 pg MCHC 35.0 31.5 - 36.5 g/dL RDW 22.9 (H) 10.0 - 15.0 % Platelet Count 552 (H) 150 - 450 10e3/uL % Neutrophils 53 % % Lymphocytes 30 % % Monocytes 14 % % Eosinophils 1 % % Basophils 1 % % Immature Granulocytes 1 % NRBCs per 100 WBC 2 (H) <1 /100 Absolute Neutrophils 7.7 1.6 - 8.3 10e3/uL Absolute Lymphocytes 4.3 0.8 - 5.3 10e3/uL Absolute Monocytes 2.0 (H) 0.0 - 1.3 10e3/uL Absolute Eosinophils 0.1 0.0 - 0.7 10e3/uL Absolute Basophils 0.2 0.0 - 0.2 10e3/uL Absolute Immature Granulocytes 0.2 <=0.4 10e3/uL Absolute NRBCs 0.3 10e3/uL RBC and Platelet Morphology Collection Time: 05/22/24 3:51 PM Result Value Ref Range RBC Morphology Confirmed RBC Indices Platelet Assessment (A) Automated Count Confirmed. Platelet morphology is normal. Automated Count Confirmed. Giant platelets are present. Giant Platelets Slight (A) None Seen Elliptocytes Slight (A) None Seen Ziegler-Ider Bodies Present (A) None Seen Polychromasia Slight (A) None Seen RBC Fragments Slight (A) None Seen Sickle Cells Moderate (A) None Seen Target Cells Slight (A) None Seen ECG 12-LEAD WITH MUSE (LHE) Collection Time: 05/23/24 6:54 PM Result Value Ref Range Systolic Blood Pressure mmHg Diastolic Blood Pressure mmHg Ventricular Rate 77 BPM Atrial Rate 77 BPM ME Interval 160 ms QRS Duration 82 ms QT 362 ms QTc 409 ms P [place] 61 degrees R AXIS 92 degrees T [place] 49 degrees Interpretation ECG Sinus rhythm Rightward axis Borderline ECG When compared with ECG of 22-May-2024 15:14, Nonspecific T wave abnormality no longer evident in Inferior leads Confirmed by SEE ED PROVIDER NOTE FOR, ECG INTERPRETATION ([id number]), newspaper managing editor SELMA GARRISON ([id number]) on 05/23/2024 7:30:33 PM CBC (+ platelets, no diff) Collection Time: 05/23/24 9:02 PM Result Value Ref Range WBC Count 17.2 (H) 4.0 - 11.0 10e3/uL RBC Count 2.45 (L) 3.80 - 5.20 10e6/uL Hemoglobin 7.9 (L) 11.7 - 15.7 g/dL Hematocrit 22.4 (L) 35.0 - 47.0 % MCV 91 78 - 100 fL MCH 32.2 26.5 - 33.0 pg MCHC 35.3 31.5 - 36.5 g/dL RDW 24.4 (H) 10.0 - 15.0 % Platelet Count 519 (H) 150 - 450 10e3/uL Reticulocyte count Collection Time: 05/23/24 9:02 PM Result Value Ref Range % Reticulocyte 28.1 (H) 0.5 - 2.0 % Absolute Reticulocyte 0.698 (H) 0.025 - 0.095 10e6/uL Troponin T, High Sensitivity Collection Time: 05/23/24 9:02 PM Result Value Ref Range Troponin T, High Sensitivity <6 <=14 ng/L N terminal pro BNP outpatient Collection Time: 05/23/24 9:02 PM Result Value Ref Range N Terminal Pro BNP Outpatient 74 0 - 450 pg/mL HCG qualitative urine Collection Time: 05/25/24 12:03 PM Result Value Ref Range hCG Urine Qualitative Negative Negative ECG 12-LEAD WITH MUSE (LHE) Collection Time: 05/27/24 12:12 PM Result Value Ref Range Systolic Blood Pressure 110 mmHg Diastolic Blood Pressure 63 mmHg Ventricular Rate 91 BPM Atrial Rate 91 BPM ME Interval 142 ms QRS Duration 80 ms QT 352 ms QTc 432 ms P [place] 39 degrees R AXIS 62 degrees T [place] 23 degrees Interpretation ECG Sinus rhythm Nonspecific T wave abnormality Abnormal ECG When compared with ECG of 23-May-2024 18:54, Nonspecific T wave abnormality now evident in Inferior leads Nonspecific T wave abnormality now evident in Anterior leads Confirmed by SEE ED PROVIDER NOTE FOR, ECG INTERPRETATION ([id number]), newspaper managing editor BEN PRAKASH ([id number]) on 05/27/2024 12:22:37 PM Comprehensive metabolic panel Collection Time: 05/27/24 2:30 PM Result Value Ref Range Sodium 136 135 - 145 mmol/L Potassium 4.8 3.4 - 5.3 mmol/L Carbon Dioxide (CO2) 18 (L) 22 - 29 mmol/L Anion Gap 12 7 - 15 mmol/L Urea Nitrogen 8.4 6.0 - 20.0 mg/dL Creatinine 0.67 0.51 - 0.95 mg/dL GFR Estimate >90 >60 mL/min/1.73m2 Calcium 9.3 8.8 - 10.4 mg/dL Chloride 106 98 - 107 mmol/L Glucose 97 70 - 99 mg/dL Alkaline Phosphatase 94 40 - 150 U/L AST 51 (H) 0 - 45 U/L ALT 19 0 - 50 U/L Protein Total 7.7 6.4 - 8.3 g/dL Albumin 4.4 3.5 - 5.2 g/dL Bilirubin Total 2.7 (H) <=1.2 mg/dL Reticulocyte count Collection Time: 05/27/24 3:13 PM Result Value Ref Range % Reticulocyte 28.0 (H) 0.5 - 2.0 % Absolute Reticulocyte 0.619 (H) 0.025 - 0.095 10e6/uL CBC with platelets and differential Collection Time: 05/27/24 3:13 PM Result Value Ref Range WBC Count 15.7 (H) 4.0 - 11.0 10e3/uL RBC Count 2.21 (L) 3.80 - 5.20 10e6/uL Hemoglobin 7.1 (L) 11.7 - 15.7 g/dL Hematocrit 20.2 (L) 35.0 - 47.0 % MCV 91 78 - 100 fL MCH 32.1 26.5 - 33.0 pg MCHC 35.1 31.5 - 36.5 g/dL RDW 23.0 (H) 10.0 - 15.0 % Platelet Count 429 150 - 450 10e3/uL Manual Differential Collection Time: 05/27/24 3:13 PM Result Value Ref Range % Neutrophils 71 % % Lymphocytes 20 % % Monocytes 9 % % Eosinophils 0 % % Basophils 0 % Absolute Neutrophils 11.1 (H) 1.6 - 8.3 10e3/uL Absolute Lymphocytes 3.1 0.8 - 5.3 10e3/uL Absolute Monocytes 1.4 (H) 0.0 - 1.3 10e3/uL Absolute Eosinophils 0.0 0.0 - 0.7 10e3/uL Absolute Basophils 0.0 0.0 - 0.2 10e3/uL RBC Morphology Confirmed RBC Indices Platelet Assessment Automated Count Confirmed. Platelet morphology is normal. Automated Count Confirmed. Platelet morphology is normal. Acanthocytes Slight (A) None Seen Elliptocytes Slight (A) None Seen RBC Fragments Slight (A) None Seen Polychromasia Slight (A) None Seen Sickle Cells Moderate (A) None Seen Target Cells Slight (A) None Seen Reticulocyte count Collection Time: 05/29/24 12:53 AM Result Value Ref Range % Reticulocyte 28.6 (H) 0.5 - 2.0 % Absolute Reticulocyte 0.616 (H) 0.025 - 0.095 10e6/uL CBC with platelets and differential Collection Time: 05/29/24 12:53 AM Result Value Ref Range WBC Count 15.6 (H) 4.0 - 11.0 10e3/uL RBC Count 2.09 (L) 3.80 - 5.20 10e6/uL Hemoglobin 6.7 (LL) 11.7 - 15.7 g/dL Hematocrit 19.2 (L) 35.0 - 47.0 % MCV 92 78 - 100 fL MCH 32.1 26.5 - 33.0 pg MCHC 34.9 31.5 - 36.5 g/dL RDW 23.0 (H) 10.0 - 15.0 % Platelet Count 405 150 - 450 10e3/uL Manual Differential Collection Time: 05/29/24 12:53 AM Result Value Ref Range % Neutrophils 54 % % Lymphocytes 34 % % Monocytes 10 % % Eosinophils 1 % % Basophils 1 % Absolute Neutrophils 8.4 (H) 1.6 - 8.3 10e3/uL Absolute Lymphocytes 5.3 0.8 - 5.3 10e3/uL Absolute Monocytes 1.6 (H) 0.0 - 1.3 10e3/uL Absolute Eosinophils 0.2 0.0 - 0.7 10e3/uL Absolute Basophils 0.2 0.0 - 0.2 10e3/uL NRBCs per 100 WBC 3 % Absolute NRBCs 0.5 10e3/uL RBC Morphology Confirmed RBC Indices Platelet Assessment Automated Count Confirmed. Platelet morphology is normal. Automated Count Confirmed. Platelet morphology is normal. Polychromasia Moderate (A) None Seen Sickle Cells Moderate (A) None Seen Assessment: Gianna Hernández is a 29 year old female who recently started receiving care at [facility] for sickle cell disease, HbSS (Apr 2024). She has several comorbidities related to sickle cell disease, including Chronic pain, AVN of the left hip, history of pulmonary embolism, history of transfusions with iron overload, history of stroke(details unclear), right eye retinopathy, acute on chronic anemia, gallstones, and a history of acute chest syndrome. She has been a regular visitor to the [facility] emergency department as well, and I have had discussions with providers there over the last week as they tried to reduce her visit frequency. I truly believe that there is a big psychosocial component to her pain, and she is starting to sense that as well. Thus, that was the focus of her visit today. She has never really been on any medication specif ically focused on that outcome and has always providers tend to be focused on really just the SCD. Her adjustment to the [facility] has been challenging, particularly at this time of year and being at home with their daughter Today, we focused on the mental health, including both psychological and psychiatric care. In my discussions with the emergency department colleagues at [facility], I stressed that a sustainable improvement cannot be rushed or forced as she will lose trust quickly if we either cut off all treatment related to pain management or try to repeat many of the same steps that she is already received without much improvement. Mental health -We reviewed the risks and benefits of SSRIs versus other options and went through the side effectsof the different treatments. We ultimately agreed to start on fluoxetine 10 mg daily and go up fromthere. I do suspect this will be more complicated, and she was agreeable to seeing a mental health provider sooner than later, because I think we need to try to utilize that pathway to reduce her ED visits. -To put it another way, we focused less on sickle cell disease today as that can obscure the big picture of what might be driving biopsychosocial discomfort. She was appreciative that we were trying to think outside the box. - Mental health home day care provider referral placed HbSS Disease with several complications listed below -Labs: ordered CBC, type and screen, retic, CMP, ferritin, bilirubin, Hgb ELP. -Offered access to in the infusion clinic. -Reviewed pain plan in collaboration with her. -In the short-term, over the last 2 weeks, I have increased her Dilaudid dosing but I am capping itwhen I am now at 40 tablets for the week, and we will work her way back down. We reviewed today that increasing the dose has not changed the trajectory of her ED visit frequency very much, so we should not expect that escalating further we will do anything more. Acute on Chronic Anemia plus stroke hx -Plan is to transfuse PRBC tomorrow. Consent obtained today. RBC genotyping has been done. Type andscreen ordered for today History of gallstones and intermittent cholecystitis -Some [...] around the hip and femur strong. -Orthopedic home day care provider referral placed. Will defer to them for [...] this institution for chronic ongoing exchange transfusions). MRI ordered in Apr but has not yet been scheduled Healthcare maintenance -Will need to get full series of PPSV23, Men B, and Men ACWY booster -Already has PCP close to home, which is fine with me. Follow up plan: 1 month with TIFFANY Thank you for the opportunity to participate in Gianna Hernández's care. Please feel free to reach out with any questions you may have. 35 minutes spent by me on the date of the encounter doing chart review, history and exam, documentation and further activities per the note Case Samuel MD [facility] Division of Hematology, Oncology, and Transplantation [facility] [place] The longitudinal plan of care for the diagnosis(es)/condition(s) as documented were addressed during this visit. Due to the added complexity in care, I will continue to support Gianna in the subsequent management and with ongoing continuity of care. HEMMER documented in this encounter Nursing Notes * Jenifer Sheffield RN - 05/29/2024 11:30 AM CST Chief Complaint Patient presents with Port Draw Labs drawn via port by RN in lab, vitals taken. Labs drawn via port by RN. Port accessed with 20g, 3/4in, power needle. Flushed with saline and heparin. Pt tolerated well. Vitals taken. Pt reports 7/10 pain for which she had to go to the ED yesterday, port left accessed at this time per pt request and message sent to team. Pt checked into next appt. Jenifer Sheffield RN HEMMER * Laura Rg - 05/29/2024 11:30 AM CST Oncology Rooming Note May 29, 2024 11:40 AM Gianna Hernández is a 29 year old female who presents for: Chief Complaint Patient presents with Port Draw Labs drawn via port by RN in lab, vitals taken. Oncology Clinic Visit RTN Sickle cell Initial Vitals: BP 98/67 (BP Location: Right arm, Patient Position: Sitting, Cuff Size: Adult Regular) Pulse 106 Temp 98.7 ??F (37.1 ??C) (Oral) Resp 18 Wt 54.6 kg (120 lb 6.4 oz) SpO2 96% BMI 22.75 kg/m?? Estimated body mass index is 22.75 kg/m?? as calculated from the following: Height as of an earlier encounter on 05/29/24: 1.549 m (5' 1). Weight as of this encounter: 54.6 kg (120 lb 6.4 oz). Body surface area is 1.53 meters squared. Severe Pain (7) Comment: Data Unavailable No LMP recorded. Patient has had an implant. Allergies reviewed: No Medications reviewed: No Medications: Medication refills not needed today. Pharmacy name entered into [employer]: [facility] [address] [place], [place] - [phone] [facility] - [place], [place] - [address] [place] [address] Frailty Screening: Is the patient here for a new oncology consult visit in cancer care? 2. No Clinical concerns:Provider came in during rooming. Laura Rg HEMMER documented in this encounter Plan of Treatment Scheduled Referrals Name Type Priority Associated Diagnoses Orde r Schedule Adult Mental Health Business Control Manager Referral Referral Urgent: 3-5 Days Severe episode of recurrent major depressive disorder, without psychotic features (H) Expected: 05/29/2024 (Approximate), Expires: 05/29/2025 documented as of this encounter Goals Goal Patient Goal Type Associated Problems Recent Progress Patient-Stated? Author Pain Management General On track( 025 12:40 PM SIDE HEMMER) Yes Juhi Benson, SOFIA Note: Goal Statement: [...] Diagnosis Comments RBC AND PLATELET MORPHOLOGY Routine 05/29/2024 11:23 AM SIDE HEMMER CBC WITH PLATELETS AND DIFFERENTIAL Routine 05/29/2024 11:23 AM SIDE HEMMER TYPE AND SCREEN, ADULT Add-On 11:23 AM SIDE HEMMER History of transfusion BILL ONLY- CAPILLARY ELECTROPHORESIS Routine 05/29/2024 11:23 AM SIDE HEMMER BILL ONLY- SICKLE SOLUBILITY BILL Routine 05/29/2024 11:23 AM SIDE HEMMER ROUTINE UA WITH MICROSCOPIC REFLEX TO CULTURE Routine 05/29/2024 11:23 AM SIDE HEMMER CBC WITH PLATELETS & DIFFERENTIAL Routine 05/29/2024 11:23 AM SIDE HEMMER GENOTYPE RED BLOOD CELL Routine 05/29/19 11:23 AM SIDE HEMMER History of transfusion RETICULOCYTE COUNT Routine 05/29/2024 11 :23 AM SIDE HEMMER HEMOGLOBIN EVAL REFLEX TO ELP OR RBC SOLUBILITY Routine 05/29/2024 11:23 AM SIDE HEMMER FERRITIN Routine 05/29/2024 11:23 AM SIDE HEMMER COMPREHENSIVE METABOLIC PANEL Routine 05/29/2024 11:23 AM SIDE HEMMER ABO/RH TYPE AND SCREEN Routine 11:23 AM SIDE HEMMER History of transfusion URINE CULTURE Routine 05/29/2024 11:23 AM SIDE HEMMER documented in this encounter Results * HGB Eval Reflex to ELP or RBC Solubility (05/29/2024 11:23 AM SIDE HEMMER) Alpha Globin (HBA1 and HBA2) DD Bill Billed 05/31/2024 2:46 PM SIDE HEMMER [facility] Comment: Performed By: [facility] [address] [place] [id number] Community Aide: Devon Healy MD, PhD CLIA Number: [id number] Blood VENOUS LINE / Unknown IVAD (Port) / Unknown 05/29/2024 11:23 AM SIDE HEMMER 05/29/2024 11:30 AM SIDE HEMMER us Case Samuel MD LAB CHARGE PERFORMABLES F inal Result [facility] [address] [place] [id number], [facility] [phone] * Bill Only- Sickle Solubility Bill (05/29/2024 11:23 AM SIDE HEMMER) Sickle Solubility Reflex Bill Billed 05/31/2024 2:46 PM SIDE HEMMER [facility] Comment: Performed By: [facility] [address] [place] [address] Community Aide: Devon Healy MD, PhD CLIA Number: [id number] Blood VENOUS LINE / Unknown IVAD (Port) / Unknown 05/29/2024 11:23 AM SIDE HEMMER 05/29/2024 11:30 AM SIDE HEMMER Case Samuel MD LAB CHARGE PERFORMABLES F inal Result Performing Organization Address City/[facility]/ZIP Co de Phone Number [facility] [address] [place] [address], [facility] [phone] * Adult Type and Screen (05/29/2024 11:23 AM SIDE HEMMER) ABO/RH(D) A POS 05/28/2024 6:00 PM SIDE HEMMER [facility] Antibody Screen Negative Negative 05/28/2024 6:00 PM SIDE HEMMER [facility] SPECIMEN EXPIRATION DATE [id number] 05/28/2024 6:00 PM SIDE HEMMER [facility] Blood VENOUS LINE / Unknown IVAD (Port) / Unknown 05/29/2024 11:23 AM SIDE HEMMER 05/29/2024 11:29 AM SIDE HEMMER Case Samuel MD LAB - BLOOD BANK TEST ORD ER Final Result Performing Organization Address City/[facility]/ZIP Co de Phone Number [facility] [address] [place] [address] * Urine Culture (05/29/2024 11:23 AM SIDE HEMMER) Culture <10,000 CFU/mL Mixture of Urogenital Vickie 05/30/2024 9:45 AM SIDE HEMMER [facility] Urine URINE SPECIMEN OBTAINED BY CLEAN CATCH PROCEDURE / Unknown Non-blood Collection / Unknown 05/29/2024 11:23 AM SIDE HEMMER 05/29/2024 11:41 AM SIDE HEMMER Case Samuel MD LAB - MICRO GENERAL ORDER SYD Final Result [facility]. [facility] Di[facility]. Lab [address] [facility], [address] [place] [address] * (ABNORMAL) RBC and Platelet Morphology (05/29/2024 11:23 AM SIDE HEMMER) RBC Morphology Confirmed RBC Indices 05/29/2024 12:33 PM SIDE HEMMER [facility] - CORE LAB Platelet Assessment Automated Count Confirmed. Platelet morphology is normal. Automated Count Confirmed. Platelet morphology is normal. 05/29/2024 12:33 PM SIDE HEMMER [facility] - CORE LAB Polychromasia Moderate(A) None Seen 05/29/2024 12:33 PM SIDE HEMMER [facility] - CORE LAB Sickle Cells Moderate(A) None Seen 05/29/2024 12:33 PM SIDE HEMMER [facility] - CORE LAB Target Cells Slight(A) None Seen 05/29/2024 12:33 PM SIDE HEMMER [facility] - CORE LAB Teardrop Cells Slight(A) None Seen 05/29/2024 12:33 PM SIDE HEMMER [facility] - CORE LAB Blood VENOUS LINE / Unknown IVAD (Port) / Unknown 05/29/2024 11:23 AM SIDE HEMMER 05/29/2024 11:29 AM SIDE HEMMER Case Samuel MD LAB - BLOOD ORDERABLES Fi nal Result [facility] - CORE LAB [facility] [place] [address] [place] [address] 1st [place] [address] * (ABNORMAL) CBC with platelets and differential (05/29/2024 11:23 AM SIDE HEMMER) WBC Count 15.8(H) 4.0 - 11.0 10e3/uL 05/29/2024 12:37 PM SIDE HEMMER [facility] - CORE LAB RBC Count 2.11(L) 3.80 - 5.20 10e6/uL 05/29/2024 12:37 PM SIDE HEMMER [facility] - [facility]ORE LAB Hemoglobin 6.7(LL) 11.7 - 15.7 g/dL 05/29/2024 12:37 PM SIDE HEMMER [facility] - CORE LAB Hematocrit 19.2(L) 35.0 - 47.0 % 05/29/2024 12:37 PM [facility] - CORE LAB MCV 91 78 - 100 fL 05/29/2024 12:37 PM [facility] - CORE LAB MCH 31.8 26.5 - 33.0 pg 05/29/2024 12:37 PM [facility] - CORE LAB MCHC 34.9 31.5 - 36.5 g/dL 05/29/2024 12:37 PM [facility] - [facility] RDW 23.1(H) 10.0 - 15.0 % 05/29/2024 12:37 PM [facility] - [facility] Platelet Count 417 150 - 450 10e3/uL 05/29/2024 12:37 PM [facility] % Neutrophils 56 % 05/29/2024 12:37 PM [facility] % Lymphocytes 25 % 05/29/2024 12:37 PM [facility] % Monocytes 15 % 05/29/2024 12:37 PM [facility] % Eosinophils 2 % 05/29/2024 12:37 PM [facility] % Basophils 1 % 05/29/2024 12:37 PM [facility] % Immature Granulocytes 1 % 05/29/2024 12:37 PM [facility] NRBCs per 100 WBC 2(H) <1 /100 025 12:37 PM [facility] Absolute Neutrophils 8.8(H) 1.6 - 8.3 10e3/uL 05/29/2024 12:37 PM [facility] Absolute Lymphocytes 4.0 0.8 - 5.3 10e3/uL 05/29/2024 12:37 PM [facility] Absolute Monocytes 2.4(H) 0.0 - 1.3 10e3/uL 05/29/2024 12:37 PM [facility] Absolute Eosinophils 0.3 0.0 - 0.7 10e3/uL 05/29/2024 12:37 PM [facility] Absolute Basophils 0.2 0.0 - 0.2 10e3/uL 05/29/2024 12:37 PM [facility] Absolute Immature Granulocytes 0.2 <=0.4 10e3/uL 05/29/2024 12:37 PM SIDE HEMMER [facility] - [facility] Absolute NRBCs 0.2 10e3/uL 05/29/2024 12:37 PM SIDE HEMMER [facility] Blood VENOUS LINE / Unknown IVAD (Port) / Unknown 05/29/2024 11:23 AM SIDE HEMMER 05/29/2024 11:29 AM SIDE HEMMER Caes Samuel MD LAB - BLOOD ORDERABLES Fi nal Result [facility] - [facility]ORE [facility] Clin[facility] [address] [facility] 1st [place] [address] * Genotype Red Blood Cell (05/29/2024 11:23 AM SIDE HEMMER) Pathologist [facility] See Scanned Result GENOTYPE RED BLOOD CELL-Scanned 05/31/2024 10:16 AM SIDE HEMMER [facility] Blood VENOUS LINE / Unknown IVAD (Port) / Unknown 05/29/2024 11:23 AM SIDE HEMMER 05/29/2024 11:29 AM SIDE HEMMER us Case Samuel MD LAB - BLOOD ORDERABLES Fi nal Result [facility] [address] [place] [address], [facility] [phone] * (ABNORMAL) HGB Eval Reflex to ELP or RBC Solubility (05/29/2024 11:23 AM SIDE HEMMER) Hemoglobin A 15.0(L) 95.0 - 97.9 % 05/31/2024 2:46 PM SIDE HEMMER [facility] Hemoglobin A2 3.0 2.0 - 3.5 % 05/31/2024 2:46 PM SIDE HEMMER [facility] Hemoglobin F 10.8(H) 0.0 - 2.1 % 05/31/2024 2:46 PM SIDE HEMMER [facility] Hemoglobin S 71.2(H) 0.0 - 0.0 % 05/31/2024 2:46 PM SIDE HEMMER [facility] Hemoglobin C 0.0 0.0 - 0.0 % 05/31/2024 2:46 PM SIDE HEMMER [facility] Hemoglobin E 0.0 0.0 - 0.0 % 05/31/2024 2:46 PM SIDE HEMMER [facility] Hemoglobin - Other 0.0 0.0 - 0.0 % 05/31/2024 2:46 PM SIDE HEMMER [facility] Hemoglobin Evaluation See Note 05/31/2024 2:46 PM SIDE HEMMER [facility] Comment: Impression: Hb S present [...] by Alpha Globin (HBA1 and HBA2) Deletion/Duplication ([facility] test #[id number]) should be considered. Hb S/beta-plus thalassemia is typically characterized by more Hb S than Hb A with the presence of microcytosis. If microcytosis is present and Hb S/beta-plus thalassemia is suspected, Beta Globin (HBB) Sequencing ([facility] test #[id number]) is suggested. Hemoglobin analysis should be offered [...] developed and its performance characteristics determined by [facility]. It has not been cleared or approved by the U.S. Food and Drug Administration. This test was performed in a CLIA-certified laboratory and is intended for clinical purposes. Sickle Cell Solubility Reflex Positive(A) 05/31/2024 2:46 PM SIDE HEMMER [facility] Comment: INTERPRETIVE INFORMATION: Sickle Cell Solubility Reflex Not Performed: Solubility testing for Hemoglobin S not indicated. 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 Additional charges apply. Conf Previous: Positive for Hemoglobin S by HPLC. Solubility testing performed previously and not repeated with this submission. Hgb Capillary Electrophoresis Reflex Performed 05/31/2024 2:46 PM SIDE HEMMER [employer] Comment: INTERPRETIVE INFORMATION: Hgb Capillary Electrophoresis Reflex Not Performed: Confirmation by Capillary Electrophoresis not indicated. Performed: Results confirmed by Capillary Electrophoresis. Additional charges apply. Conf Previous: Capillary Electrophoresis confirmation performed as part of a previous submission. Confirmation not repeated with this submission. Performed By: [facility] [address] [place] [address] Community Aide: Devon Healy MD, PhD CLIA Number: [id number] Blood VENOUS LINE / Unknown IVAD (Port) / Unknown 05/29/2024 11:23 AM SIDE HEMMER 05/29/2024 11:30 AM SIDE HEMMER Case Samuel MD LAB - BLOOD ORDERABLES Fi nal Result Performing Organization Address City/[facility]/ZIP Co de Phone Number [employer] [address] [place] [phone] [phone] * (ABNORMAL) Ferritin (05/29/2024 11:23 AM SIDE HEMMER) Pathologist [facility] Ferritin 1,559(H) 6 - 175 ng/mL 05/29/2024 12:43 PM SIDE HEMMER [facility] Blood VENOUS LINE / Unknown IVAD (Port) / Unknown 05/29/2024 11:23 AM SIDE HEMMER 05/29/2024 11:29 AM SIDE HEMMER Case Samuel MD LAB - BLOOD ORDERABLES Fi nal Result [facility] [address] 1st [place] [address] * (ABNORMAL) Routine UA with micro reflex to culture (05/29/2024 11:23 AM SIDE HEMMER) Color Urine Yellow Colorless, Straw, Light Yellow, Yellow 05/29/2024 11:41 AM SIDE HEMMER [facility] Appearance Urine Slightly Cloudy(A) Clear 05/29/2024 11:41 AM [facility] Glucose Urine Negative Negative mg/dL 05/29/2024 11:41 AM [facility] Bilirubin Urine Negative Negative 11:41 AM [facility] Ketones Urine Negative Negative mg/dL 05/29/2024 11:41 AM [facility] Specific Rankin Urine 1.013 1.003 - 1.035 05/29/2024 11:41 AM [facility] Blood Urine Negative Negative 05/29/2024 11:41 AM [facility] pH Urine 7.0 5.0 - 7.0 05/29/2024 11:41 AM [facility] Protein Albumin Urine Negative Negative mg/dL 05/29/2024 11:41 AM [facility] Urobilinogen Urine Normal Normal, 2.0 mg/dL 05/29/2024 11:41 AM [facility] Nitrite Urine Negative Negative 05/29/2024 11:41 AM [facility] Leukocyte Esterase Urine Moderate(A) Negative 05/29/2024 11:41 AM SIDE HEMMER [facility] Mucus Urine Present(A) None Seen /LPF 05/29/2024 11:41 AM [facility] RBC Urine 6(H) <=2 /HPF 05/29/2024 11:41 AM [facility] WBC Urine 3 <=5 /HPF 05/29/2024 11:41 AM [facility] Squamous Epithelials Urine 18(H) <=1 /HPF 05/29/2024 11:41 AM [facility] Urine URINE SPECIMEN OBTAINED BY CLEAN CATCH PROCEDURE / Unknown Non-blood Collection / Unknown 05/29/2024 11:23 AM SIDE HEMMER 05/29/2024 11:29 AM SIDE HEMMER Narrative [facility] - 05/29/2024 11:41 AM SIDE HEMMER Urine Culture ordered based on laboratory criteria us Case Samuel MD LAB - URINE ORDERABLES Fi nal Result [facility] - [facility]ORE LAB [facility] [address] 1st [place] [address] * (ABNORMAL) Comprehensive metabolic panel (05/29/2024 11:[address] [facility]) Sodium 139 135 - 145 mmol/L 05/29/2024 11:58 AM [facility] Potassium 4.2 3.4 - 5.3 mmol/L 05/29/2024 11:58 AM [facility] Carbon Dioxide (CO2) 24 22 - 29 mmol/L 05/29/2024 11:58 AM [facility] Anion Gap 10 7 - 15 mmol/L 05/29/2024 11:58 AM [facility] Urea Nitrogen 9.2 6.0 - 20.0 mg/dL 05/29/2024 11:58 AM [facility] Creatinine 0.75 0.51 - 0.95 mg/dL 05/29/2024 11:58 AM [facility] GFR Estimate >90 >60 mL/min/1.7 3m2 05/29/2024 11:58 AM [facility] Comment:eGFR calculated usin g 2020 CKD-EPI equation. Calcium 8.9 8.8 - 10.4 mg/dL 05/29/2024 11:58 AM [facility] Chloride 105 98 - 107 mmol/L 05/29/2024 11:58 AM [facility] Glucose 109(H) 70 - 99 mg/dL 05/29/2024 11:58 AM [facility] Alkaline Phosphatase 83 40 - 150 U/L 05/29/2024 11:58 AM [facility] AST 49(H) 0 - 45 U/L 05/29/2024 11:58 AM [facility] ALT 21 0 - 50 U/L 05/29/2024 11:58 AM [facility] Protein Total 7.3 6.4 - 8.3 g/dL 05/29/2024 11:58 AM [facility] Albumin 4.1 3.5 - 5.2 g/dL 05/29/2024 11:58 AM [facility] Bilirubin Total 2.2(H) <=1.2 mg/dL 05/29/2024 11:58 AM SIDE HEMMER [facility] Blood VENOUS LINE / Unknown IVAD (Port) / Unknown 05/29/2024 11:23 AM SIDE HEMMER 05/29/2024 11:29 AM SIDE HEMMER Case Samuel MD LAB - BLOOD ORDERABLES Fi nal Result Performing Organization Address [facility] de Phone Number [facility]ORE [facility] - [address] [place] [address] * (ABNORMAL) Reticulocyte count (05/29/2024 11:23 AM SIDE HEMMER) [facility] % Reticulocyte 29.8(H) 0.5 - 2.0 % 05/29/2024 12:00 PM SIDE HEMMER [facility] Absolute Reticulocyte 0.631(H) 0.025 - 0.095 10e6/uL 05/29/2024 12:00 PM SIDE HEMMER [facility] Blood VENOUS LINE / Unknown IVAD (Port) / Unknown 05/29/2024 11:23 AM SIDE HEMMER 05/29/2024 11:29 AM SIDE HEMMER Case Samuel MD LAB - BLOOD ORDERABLES Fi nal Result Performing Organization Address [facility] de Phone Number [facility] [address] [place] [address] documented in this encounter Visit Diagnoses Diagnosis Severe episode of recurrent major depressive disorder, without psychotic features (H)- Primary History of transfusion Other specified personal history presenting hazards to health 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 documented in this encounter Administered Medications Inactive Administered Medications - up to 3 most recent administrations Medication Order MAR Action Action Date Dose Rate Site heparin lock flush 100 unit/mL injection 5 mL 5 mL, Intracatheter, EVERY 8 HOURS, First dose on Wed05/29/24 at 1130 $Given 05/29/2024 11:29 AM SIDE HEMMER 5 mLs sodium chloride (PF) 0.9% PF flush 20 mL 20 mL, Intravenous, ONCE, On 05/29/24 at 1130, For 1 dose $Given 05/29/2024 11:30 AM SIDE HEMMER 20 mLs documented in this encounter Care Teams Meat Molder Relationship Specialty Start Date End Date No Ref-Primary, Physician PCP - General 03/15/24 06/17/24 Mor Ramsey Medical Student 04/03/24 Case Samuel MD [address] [place] [address], [address] [place] [address] Assigned Pediatric Specialist Provider 05/18/24 Juhi Benson, RN Specialty Shipyard Painter Hematology & Oncology 05/29/24 documented as of this encounter
--- OUTSIDE RECORDS SUMMARY | 2024-06-21 22:18 | XMS_ITS | Encounter Summary ---
Author Organization [facility] Address [address] [place] [address]. 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 Author Pain Management General On track( 025 12:40 PM DOUGHNUT MAKER) Yes Juhi Benson RN Note: Goal Statement: [...] on filedocumented in this encounter Care Teams Cell Stripper Relationship Specialty Start Date End Date No Ref-Primary, Physician PCP - General 03/15/24 06/17/24 Mor Ramsey Medical Student 04/03/24 Case Samuel MD [address] [place] [address], [address] [place] [address] Assigned Pediatric Specialist Provider 05/18/24 Juhi Benson RN Specialty Clerk Operator Hematology & Oncology 05/29/24 documented as of this encounter
--- OUTSIDE RECORDS SUMMARY | 2024-06-21 22:18 | XMS_ITS | Encounter Summary ---
Author Organization [facility] Address [address] [place] [address]. 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 Author Pain Management General On track( 025 12:40 PM SOLID PLASTERER) Yes Juhi Benson RN Note: Goal Statement: [...] on filedocumented in this encounter Care Teams Bench Lathe Operator Relationship Specialty Start Date End Date No Ref-Primary, Physician PCP - General 03/15/24 06/17/24 Mor Ramsey Medical Student 04/03/24 Case Samuel MD [address] [place] [address] [address], [address] [place] [address] Assigned Pediatric Specialist Provider 05/18/24 Juhi Benson RN Specialty Structural Engineer Hematology & Oncology 05/29/24 documented as of this encounter
--- OUTSIDE RECORDS SUMMARY | 2024-06-21 22:18 | XMS_ITS | Encounter Summary ---
Author Organization [facility] Address [address] [place] [address]. 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
--- OUTSIDE RECORDS SUMMARY | 2024-06-21 22:18 | XMS_ITS | Encounter Summary ---
Author Organization [facility] Address [address] [place] [address] Care Team Providers Care Mechanical Oxidizer Name Role Phone No Ref-Primary, Physician Primary Care Provider Mor Ramsey Unavailable Unavailable Case Samuel MD Unavailable [phone] Juhi Benson RN Unavailable Unavailable Reason for Visit * Reason Comments Blood Transfusion 1 unit blood Infusion Fluids and pain medi cations Encounter Details Date Type Department Care Team (Late st Contact Info) Description 05/30/2024 8:00 AM CORRESPONDENCE DICTATOR Infusion Therapy Visit [facility] [address] [place] [address] Case Samuel MD [address] [place] [address] [address], [address] [place], [place] [id number] 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); History of transfusion; Sickle cell pain crisis (H) Social History [...] an overnight long term, or couch-surfing.) Yes 04/09/2024 Are you worried [...] on file Legal Sex Female 8:25 AM CORRESPONDENCE DICTATOR Gender Identity Not on file Sexual Orientation Not on file documented as of this encounter Last Filed Vital Signs Vital Sign Reading Time Taken Comments Blood Pressure 109/72 05/30/2024 11:15 AM CORRESPONDENCE DICTATOR Pulse 77 05/30/2024 11:15 AM CORRESPONDENCE DICTATOR Temperature 36.5 C (97.7 F) 05/30/2024 10:21 AM CORRESPONDENCE DICTATOR Respiratory Rate 16 05/30/2024 10:21 AM CORRESPONDENCE DICTATOR Oxygen Saturation 95% 05/30/2024 10:21 AM CORRESPONDENCE DICTATOR Inhaled Oxygen Concentration - - Weight - - Height - - Body Mass Index - - documented in this encounter Patient Instructions * Patient Instructions* Arlene Moses RN - 05/30/2024 8:00 AM CORRESPONDENCE DICTATOR Dear Gianna Hernández Thank you for choosing [facility] ([facility]) for your transfusion. The following information is a summary of our appointment as well as important reminders. If you have any questions on your upcoming Specialty Infusion appointments, please call scheduling at [phone]. It was a pleasure taking care of you today. Sincerely, [facility] [address] [place] [address] ESPONDENCE DICTATOR * Attachments The following attachments cannot be sent through Care Everywhere. * Blood Transfusions: General Info (Japanese) documented in this encounter Progress Notes * Arlene Moses RN - 05/30/2024 8:00 AM CST Blood Product Transfusion Nursing Note: Gianna Hernández presents today to [facility] for a blood transfusion. During today's [facility] appointment orders from Dr Samuel were completed. Progress note: ID verified by name and . Assessment completed. Vitals were stable throughout time in [facility]. Verbal education given to patient/premium representative regarding transfusion and possible side effects. Patient/premium representative verbalized understanding. Supervisor [employer] present during visit today: Not Applicable. All pertinent labs reviewed prior to infusion: YES Hemoglobin Date Value Ref Range Status 05/29/2024 6.7 (LL) 11.7 - 15.7 g/dL Final Vascular access: port accessed prior to appointment [facility] on 05/29/24. Date of consent or authorization: 05/29/24 Patient tolerated the procedure well Transfusion given over approximately 2 hours Discharge Plan: Discharge instructions were reviewed with patient Yes Patient/premium representative verbalized understanding of discharge instructions and all questions answered Yes. BP 101/66 (BP Location: Left arm, Patient Position: Sitting, Cuff Size: Adult Regular) Pulse 90 Resp 16 SpO2 96% Infusion Nursing Note: Gianna Hernández presents today for IV fluids and pain medications. Note: Patient approved by triage for pain medications. Patient requested to do 500 ml of lactated ringers instead of 1000 ml since she is already getting a blood transfusion. Post Infusion Assessment: Patient tolerated infusion without incident. Site patent and intact, free from redness, edema or discomfort. Access discontinued per protocol. Discharge Plan: Patient and/or family verbalized understanding of discharge instructions and all questions answered. Patient discharged in stable condition accompanied by: self. Administrations This Visit heparin lock flush 100 unit/mL injection 5 mL Admin Date 05/30/2024 Action $Given Dose 5 mL Route Intracatheter Documented By Arlene Moses RN HYDROmorphone (DILAUDID) injection 2 mg Admin Date 05/30/2024 Action $Given Dose 2 mg Route Intravenous Documented By Arlene Moses RN Admin Date 05/30/2024 Action $Given Dose 2 mg Route Intravenous Documented By Arlene Moses RN Admin Date 05/30/2024 Action $Given Dose 2 mg Route Intravenous Documented By Arlene Moses RN lactated ringers BOLUS 1,000 mL Admin Date 05/30/2024 Action $New Bag Dose 500 mL Rate 500 mL/hr Route Intravenous Documented By Arlene Moses RN sodium chloride (PF) 0.9% PF flush 3-20 mL Admin Date 05/30/2024 Action $Given Dose 20 mL Route Intracatheter Documented By Arlene Moses RN Admin Date 05/30/2024 Action $Given Dose 20 mL Route Intracatheter Documented By Arlene Moses RN Alyssa Sakhitab-Kerestes, RN ESPONDENCE DICTATOR documented in this encounter Plan of Treatment Not on file documented as of this encounter Goals Goal Patient Goal Type Associated Problems Recent Progress Patient-Stated? 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) History of transfusion PREPARE RED BLOOD CELLS (UNIT) Routine 05/29/2024 5:12 PM CORRESPONDENCE DICTATOR documented in this encounter Results * Transfuse red blood cells (unit), Sickle Cell (Hgb S) Negative (05/30/2024 10:24 AM CORRESPONDENCE DICTATOR) Case Samuel MD BLOOD TRANSFUSION ORDERAB LES Final Result * Transfuse red blood cells (unit), 1 Units, Sickle Cell (Hgb S) Negative (05/30/2024 10:24 AM CORRESPONDENCE DICTATOR) Case Samuel MD BLOOD TRANSFUSION ORDERAB LES Final Result * Prepare red blood cells (unit) (05/29/2024 5:12 PM CORRESPONDENCE DICTATOR) Blood Component Type Red Blood Cells [facility] BLOOD BANK Product Code [id number] [facility] BLOO D BANK Unit Status Transfused [facility] BLOO D BANK Unit Number [id number] UU B LOOD BANK CROSSMATCH COMPATIBLE U BLOOD BANK CODING SYSTEM [id number] U[facility] BLO OD BANK ISSUE DATE AND TIME [id number] [facility] BLOOD BANK UNIT ABO/RH A- [facility] BLOOD BANK UNIT TYPE ISBT 0600 U[facility] BL OOD BANK 05/29/2024 5:12 PM CORRESPONDENCE DICTATOR Case Samuel MD BLOOD BANK PRODUCT ORDERA BLES Final Result [facility]LOOD [facility] [address] [place] [address], [facility] documented in this encounter Visit Diagnoses Diagnosis 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),History of transfusion $Given 05/30/2024 11:18 AM CORRESPONDENCE DICTATOR 5 mLs HYDROmorphone (DILAUDID) injection 2 mg 2 mg, Intravenous, EVERY 1 HOUR PRN, severe pain, moderate pain, Starting on Wed05/30/24 at 0833, For 3 dosesIndications:Sickle cell pain crisis (H) $Given 05/30/2024 10:56 AM CORRESPONDENCE DICTATOR 2 mg $Given 05/30/2024 9:44 AM CORRESPONDENCE DICTATOR 2 mg $Given 05/30/2024 8:39 AM CORRESPONDENCE DICTATOR 2 mg lactated ringers BOLUS 1,000 mL Intravenous, 1,000 mL, ONCE, at 500 mL/hr, Administer over 2 Hours, On Wed05/30/24 at 0845, For 1 doseIndications:Sickle cell pain crisis (H) $New Bag 05/30/2024 10:24 AM CORRESPONDENCE DICTATOR 500 mLs 500 mL/hr sodium chloride (PF) 0.9% PF flush 3-20 mL 3-20 mL, Intracatheter, EVERY 1 MIN PRN, line flush, post meds or blood draw, Starting on Wed05/30/24 at 0815, PIV: 3 mL after each use & [...] to assess patency; 20 mL after blood draw.Indications: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
--- OUTSIDE RECORDS SUMMARY | 2024-06-21 22:18 | XMS_ITS | Encounter Summary ---
Author Organization [place] Address [address] [place] [id number] Care Team Providers Care Care Connector Name Role Phone No Ref-Primary, Physician Primary Care Provider Mor Ramsey Unavailable Unavailable Case Samuel MD Unavailable [phone] Reason for Referral * Therapeutic Imaging/IR (Routine: Next available opening) - Closed Specialty Diagnoses / Procedures Referred By Contac t Referred To Contact Radiology. 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) Discharge Disposition: [...] on file Legal Sex Female 8:25 AM MORNING CAREGIVER Gender Identity Not on file Sexual Orientation Not on file documented as of this encounter Last Filed Vital Signs Vital Sign Reading Time Taken Comments Blood Pressure 100/60 05/25/2024 4:00 PM MORNING CAREGIVER Pulse 92 05/25/2024 3:00 PM MORNING CAREGIVER Temperature 36.9 C (98.5 F) 05/25/2024 11:09 AM MORNING CAREGIVER Respiratory Rate 16 05/25/2024 4:00 PM MORNING CAREGIVER Oxygen Saturation 98% 05/25/2024 4:00 PM MORNING CAREGIVER Inhaled Oxygen Concentration - - Weight 51.1 kg (112 lb 9.6 oz) 05/25/2024 11:09 AM MORNING CAREGIVER Height - - Body Mass Index 21.28 05/23/2024 4:48 PM MORNING CAREGIVER documented in this encounter Discharge Instructions * Discharge Instructions* Hattie Ballesteros RN - 05/25/2024 3:24 PM MORNING CAREGIVER Images from the original note were not included. [facility] Interventional Radiology Discharge Instructions Following Port Placement You had a 2 ports placed. On the right side of your chest is a apheresis port and on the left side of your chest in a smart port. A port is a small medical laboratory specialist that is placed under the skin and isconnected to a vein with a catheter (thin, flexible tube). Ports can be used to administer IV medications (including chemotherapy), fluids or blood products or for blood lab draws. Please follow the below instructions after your procedure: Your Ports has been closed with [place] (Skin Glue) If there is any oozing or bleeding from the site, apply direct pressure for 5-10 minutes with a gauze pad. If bleeding continues after 10 minutes call your primary doctor. If bleeding cannot be controlled with direct pressure, call 911. If you experience the following seek medical evaluation: Uncontrolled bleeding from port site Fever (greater than 100??) Purulent (yellow/green/foul smelling) drainage from port insertion site Increasing pain at port site Increasing redness at port site Increasing swelling If you were given sedation: We recommend an adult stay with you for the first [address] operate heavy machinery for the rest of the day. No alcoholic beverages for 24 hours. Care Instructions You may shower beginning tomorrow (post procedure day #1). Do not scrub site until well healed, patdry gently with a towel. You have skin adhesive over your port site. Skin adhesive works like a bandage to keep the site covered and protected. Do not use antibiotic ointment or creams/lotions over adhesive as it can break it down. The skin adhesive will peel off on its own (typically in 5-14 days). Avoid submerging the port site under water (ex: tub baths, Jacuzzis, lakes, hot tubs and pools) for10 days or until your site is well healed. You may have some discomfort, minimal swelling, redness and/or bruising at your port site/proceduresite. You may take over the counter pain medication for discomfort (follow the package directions) or apply an ice pack wrapped in a towel over the site (rotating 20 minutes with ice pack on and 20 minutes with ice pack off) for comfort as needed. It can take several days for these to resolve. Avoid heavy lifting (greater than 10 pounds) and strenuous activities for 2-3 days following your procedure. If you experience significant bleeding at site, apply pressure with hands above the clavicle bone, sit upright and seek immediate medical assistance. Ports need to be flushed approximately every 4 weeks, if not being used more frequently. Follow up with the provider who ordered your port placement for further instructions for this. [facility] INTERVENTIONAL RADIOLOGY DEPARTMENT Procedure Physician: Myron Michel MD Date of procedure: May 25, 2024 Telephone Numbers: [phone] Wednesday-Wednesday 7:30 am to 4:00 pm [phone] After 4:00 pm Wednesday-Wednesday, Weekends & Holidays. Ask for the Interventional Radiologist process control specialist. Someone is process control specialist 24 hrs/day [facility] toll free number: Wednesday-Wednesday 8:00 am to 4:30 pm [facility] Emergency Dept: [phone] IF YOU ARE EXPERIENCING A MEDICAL EMERGENCY PLEASE CALL 911 ING CAREGIVER ING CAREGIVER documented in this encounter Medications at Time [...] as needed for severe pain. 30 tablet 05/24/2024 documented as of this encounter Progress Notes * Hattie Ballesteros RN - 05/25/2024 4:08 PM CST Patient met discharge criteria. VSS. Pain at acceptable level. Bilateral chest sites intact. Ambulating, voiding, eating and drinking. Discharge instructions gone over with patient, teaching completeabout bilateral port sites. Escorted out to s/o who is driving patient home. ING CAREGIVER * Hattie Ballesteros RN - 05/25/2024 3:07 PM CST Patient returned s/p bilateral port placement with apheresis port on the right and smart port on the left, both with dermabond, intact no bleeding or swelling. Patient c/o 7/10 pain, RN called Dr. Anglin and got home dose of dilaudid ordered. Patient alert and oriented, RASS of 0. Will discharge once meeting criteria. ING CAREGIVER * Hattie Ballesteros RN - 05/25/2024 12:32 PM CST Patient prepped for port placement x 2. Patient will have a power port and a apharesis IV port. Consent signed. PIV placed in left AC by vascular, IV antibiotic running. Appropriately NPO. Patient has sickle cell disease, reports pain okay today. S/o Vineet will be picking patient up. ING CAREGIVER documented in this encounter Procedure Notes * Myron Michel MD - 05/25/2024 2:55 PM CSTAssociated Order(s): IR Procedure Note [facility] Procedure: IR Procedure Note Date/Time: 05/25/2024 2:54 [...] identity confirmed: Arm band, provided demographic data, hospital- assigned identification number and verbally with patient Patient was reevaluated immediately before administering moderate or deep sedation or anesthesia Confirmation Checklist: Correct equipment/implants were available, procedure was appropriate and matched the consent or emergent situation, relevant allergies and patient's identity using two indicators Time out: Immediately prior to the procedure a time out was called [place] Protocol: the Joint Commission [place] Protocol was followed Preparation: Patient was prepped and draped in usual sterile fashion ANESTHESIA Anesthesia: Local infiltration Local Anesthetic: Lidocaine 1% without epinephrine SEDATION Patient Sedated: Yes Sedation Type: Moderate (conscious) sedation Sedation: Fentanyl and midazolam Vital signs: Vital signs monitored during sedation See dictated procedure note for full details. Findings: Successful bilateral port placement apheresis on the right, 6 bangladeshi smart port on the left Specimens: none Procedural Complications: None Condition: Stable Plan: 1 hour bedrest then okay to discharge PROCEDURE Describe Procedure: Successful bilateral port placement apheresis on the right, 6 bangladeshi smart porton the left Patient Tolerance: Patient tolerated the procedure well with no immediate complications Length of time physician/provider present for 1:1 monitoring during sedation: 83-97 min ING CAREGIVER documented in this encounter Miscellaneous Notes * IR Note - Marly Narvaez RN - 05/25/2024 12:36 PM CST Patient Name: Gianna Hernández Today's Date: 05/25/2024 Procedure: bilateral chest port placement Proceduralist: Laury Michel MD, Shell Cooper MD Pathology present: n/a Brief completed: n/a Procedure Start: 1310 Procedure end: 1447 Sedation medications administered: 8 mg of versed, 400 mcg of fentanyl Sedation time: 97 minutes ([id number]) Report given to: Juhi Aviles RN Advanced Manager: n/a Other Notes: Pt arrived to IR room 04 from . Consent reviewed. Pt denies any questions or concerns regarding procedure. Pt positioned supine and monitored per protocol. Pt tolerated procedure without any noted complications. Bilateral chest sites cleansed and dressed per protocol. Right chest port is the apheresis port. Both chest ports placed under fluoroscopy, ready for immediate use. Right chest port (apheresis) heparin locked with 5,000 units of heparin (5 mL). Left chest port heparin locked with 500 units of heparin (5 mL). Pt transferred back to . ING CAREGIVER * Pre-Procedure - Juan Story PA-Jefferson - 05/25/2024 11:37 AM MORNING CAREGIVER GENERAL PRE-PROCEDURE: Procedure: Port placement x2 Date/Time: 05/25/2024 11:38 AM Written consent obtained?: Yes Risks and benefits: Risks, benefits and alternatives were discussed Consent given by: Patient Patient states understanding of procedure being performed: Yes Patient's understanding of procedure matches consent: Yes Procedure consent matches procedure scheduled: Yes Expected level of sedation: Moderate Appropriately NPO: Yes ASA Class: 3 Mallampati : Grade 2- soft palate, base of uvula, tonsillar pillars, and portion of posterior pharyngeal wall visible Lungs: Lungs clear with good breath sounds bilaterally Heart: Normal heart sounds and rate History & Physical reviewed: History and physical reviewed and no updates needed Statement of review: I have reviewed the lab findings, diagnostic data, medications, and the plan for sedation ING CAREGIVER documented in this encounter Plan of Treatment Not on file documented as of this encounter Goals Goal Patient Goal Type Associated Problems Recent Progress Patient-Stated? 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) HCG QUALITATIVE URINE Routine 05/25/2024 12:03 PM MORNING CAREGIVER documented in this encounter Results * IR Procedure Note (05/25/2024 2:54 PM MORNING CAREGIVER) Narrative Myron Michel MD - 05/25/2024 2:54 PM MORNING CAREGIVER Myron Michel MD 05/25/2024 2:55 PM [facility] Procedure: IR Procedure Note Date/Time: 05/25/2024 2:54 [...] the procedure a time out was called [place] Protocol: the Joint Commission [place] Protocol was followed Preparation: Patient was prepped and draped in usual sterile fashion ANESTHESIA Anesthesia: Local infiltration Local Anesthetic: Lidocaine 1% without epinephrine SEDATION Patient Sedated: Yes Sedation Type: Moderate (conscious) sedation Sedation: Fentanyl and midazolam Vital signs: Vital signs monitored during sedation See dictated procedure note for full details. Findings: Successful bilateral port placement apheresis on the right, 6 bangladeshi smart port on the left Specimens: none Procedural Complications: None Condition: Stable Plan: 1 hour bedrest then okay to discharge PROCEDURE Describe Procedure: Successful bilateral port placement apheresis on the right, 6 bangladeshi smart port on the left Patient Tolerance: Patient tolerated the procedure well with no immediate complications Length of time physician/provider present for 1:1 monitoring during sedation: 83-97 min us Myron Michel MD PROCEDURE/MINOR SURGICAL ORDERA BLES Final Result * IR Chest Port Placement > 5 Yrs of Age (05/25/2024 2:47 PM MORNING CAREGIVER) Anatomical Region Laterality Modality Chest Radio Fluoroscop y Impressions 05/25/2024 5:26 PM MORNING CAREGIVER IMPRESSION: Insertion of right-sided apheresis chest port, [...] mg Versed Sedation time: 97 minutes ATTENDING [id number] SEDATION TIME: less than 5 minutes. Access [...] placed: BD PowerFlow apheresis port Catheter size (Vincentian): 9.6 Lumens: Single-lumen Power injectable: Yes Catheter [...] JASWINDER COOPER MD Narrative 05/25/2024 5:26 PM MORNING CAREGIVER PROCEDURE: Venous port placement Procedural Personnel Attending physician(s): Jaswinder Cooper Fellow physician(s): Myron Michel Resident physician(s): None Advanced practice provider(s): None JASWINDER Long MD, attest that I was present for [...] Resident physician(s): None Advanced practice provider(s): None JASWINDER Long MD, attest that I was present for all critical portions of the procedure and was immediately available to provide guidance and assistance during the remainder of the procedure. Procedure Date (mm//yyyy): 05/25/2024 Pre-procedure diagnosis: Sickle cell Post-procedure diagnosis: [...] mg Versed Sedation time: 97 minutes ATTENDING [id number] SEDATION TIME: less than 5 minutes. Access [...] placed: BD PowerFlow apheresis port Catheter size (Vincentian): 9.6 Lumens: Single-lumen Power injectable: Yes Catheter [...] JASWINDER COOPER MD us Case Samuel MD IMG IR ORDERABLES Final R esult * IR Chest Port Placement > 5 Yrs of Age (05/25/2024 2:47 PM MORNING CAREGIVER) Anatomical Region Laterality Modality Chest Radio Fluoroscop y Impressions 05/25/2024 5:23 PM MORNING CAREGIVER IMPRESSION: Insertion of left-sided 6 Vincentian chest port, with catheter tip in the [...] procedure. Sedation times and medications represent totals from both port placements which are separately dictated Medications: 1. 400mcg Fentanyl 2. 80 mg Versed Sedation time: 97 minutes ATTENDING [id number] SEDATION TIME: 5 minutes. Access Local anesthesia was administered. The vessel was sonographically evaluated and determined to be patent. Real time ultrasound was used to visualize needle entry into the vessel and a permanent image was stored. Laterality: Left Vein accessed: Internal jugular vein Access technique: Micropuncture set with 21 gauge needle Port placement An incision was made at the upper chest, a pocket was created, and the catheter was tunneled subcutaneously to the venous access site and trimmed to appropriate length of 22 cm. The port was inserted into the pocket and the catheter was advanced via a peel-away sheath into the vein under fluoroscopic guidance. The port was not sutured into the pocket. Catheter tip location was fluoroscopically verified and a permanent image was stored. Port placed: AngioDynamics Plastic CT Smart Port Catheter size (Vincentian): 6 Lumens: Single-lumen Power injectable: Yes Catheter tip: cavoatrial junction Catheter flush: Heparin (100 units/mL) Just prior to closure the patient raised her hand into the sterile field, it not touch the incision or the implantable device. Her hand was reduced from the area and the chest was reprepped with an additional ChloraPrep and the area that was touched was toweled off. Closure The access site and incision were closed and sterile dressing(s) were applied. Access site closure technique: Tissue adhesive Incision closure technique: Absorbable suture and tissue adhesive Patient discharged from procedure suite with device accessed: No Contrast Radiation Dose Fluoroscopy time (minutes): 2.0 Reference air kerma (mGy): 3.1 Kerma area product (uGy-cm2): 46.59 Radiation totals represent combined totals from both port placements which are separately dictated Additional Details Additional description of procedure: None Registry event: V/3/g Device used: None Equipment details: None Unique Device Identifiers: Not available Specimens removed: None Estimated blood loss (mL): Less than 10 Standardized report: SIR_Port_v3.1 I have personally reviewed the examination and initial interpretation and I agree with the findings. JASWINDER COOPER MD Narrative 05/25/2024 5:23 PM MORNING CAREGIVER PROCEDURE: Venous port placement Procedural Personnel Attending physician(s): Jaswinder Cooper Fellow physician(s): Myron Michel Resident physician(s): None Advanced practice provider(s): None JASWINDER Long MD, attest that I was present for all critical portions of the procedure and was immediately available to provide guidance and assistance during the remainder of the procedure. Procedure Date (): 05/25/2024 Pre-procedure diagnosis: Sickle cell Post-procedure diagnosis: [...] the remainder of the procedure. Procedure Date (): 05/25/2024 Pre-procedure diagnosis: Sickle cell Post-procedure diagnosis: Same Indication: Other- Additional clinical history: None Complications: No immediate complications. IMPRESSION: Insertion of left-sided 6 Vincentian chest port, with catheter tip in the [...] procedure. Sedation times and medications represent totals from both port placements which are separately dictated Medications: 1. 400mcg Fentanyl 2. 80 mg Versed Sedation time: 97 minutes ATTENDING [id number] SEDATION TIME: 5 minutes. Access Local anesthesia was administered. The vessel was sonographically evaluated and determined to be patent. Real time ultrasound was used to visualize needle entry into the vessel and a permanent image was stored. Laterality: Left Vein accessed: Internal jugular vein Access technique: Micropuncture set with 21 gauge needle Port placement An incision was made at the upper chest, a pocket was created, and the catheter was tunneled subcutaneously to the venous access site and trimmed to appropriate length of 22 cm. The port was inserted into the pocket and the catheter was advanced via a peel-away sheath into the vein under fluoroscopic guidance. The port was not sutured into the pocket. Catheter tip location was fluoroscopically verified and a permanent image was stored. Port placed: AngioDynamics Plastic CT Smart Port Catheter size (Vincentian): 6 Lumens: Single-lumen Power injectable: Yes Catheter tip: cavoatrial junction Catheter flush: Heparin (100 units/mL) Just prior to closure the patient raised her hand into the sterile field, it not touch the incision or the implantable device. Her hand was reduced from the area and the chest was reprepped with an additional ChloraPrep and the area that was touched was toweled off. Closure The access site and incision were closed and sterile dressing(s) were applied. Access site closure technique: Tissue adhesive Incision closure technique: Absorbable suture and tissue adhesive Patient discharged from procedure suite with device accessed: No Contrast Radiation Dose Fluoroscopy time (minutes): 2.0 Reference air kerma (mGy): 3.1 Kerma area product (uGy-cm2): 46.59 Radiation totals represent combined totals from both port placements which are separately dictated Additional Details Additional description of procedure: None Registry event: V/3/g Device used: None Equipment details: None Unique Device Identifiers: Not available Specimens removed: None Estimated blood loss (mL): Less than 10 Standardized report: SIR_Port_v3.1 I have personally reviewed the examination and initial interpretation and I agree with the findings. JASWINDER COOPER MD us Case Samuel MD IMG IR ORDERABLES Final R esult * HCG qualitative urine (05/25/2024 12:03 PM MORNING CAREGIVER) hCG Urine Qualitative Negative Negative JARET 05/25/2024 12:34 PM MORNING CAREGIVER [facility] Comment:This test is for scr eening purposes. Results should be interpreted along with the clinical picture. Confirmation testing is available if warranted by ordering [id number], HCG Quantitative . 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 If patient weight is greater than or equal to 120 kg change dose to 3 g., Indications: Perioperative Pharmacoprophylaxis, IR Pre-procedureIndications:Perioper ative Pharmacoprophylaxis $New Bag 05/25/2024 12:17 PM MORNING CAREGIVER 2 g 200 mL/hr fentaNYL (PF) (SUBLIMAZE) injection 25-50 mcg 25-50 mcg, Intravenous, EVERY 5 MIN PRN, severe pain, If inadequate response may repeat 25 mcg IV slowly every 5 min PRN severe pain; when verbally requested by provider., Administer over 2 Minutes, Starting on Citalli 05/25/24 at 1138, Doses can be exceeded under direct oversight of patient by physician., IR Intra-procedure $Given 05/25/2024 2:38 PM MORNING CAREGIVER 25 mcg $Given 05/25/2024 2:25 PM MORNING CAREGIVER 50 mcg $Given 05/25/2024 2:16 PM MORNING CAREGIVER 25 mcg flumazenil (ROMAZICON) injection 0.2 mg 0.2 mg, Intravenous, EVERY 1 MIN PRN, benzodiazepine reversal, If inadequate response after 45 seconds, may repeat 0.2 mg IV every 1 minute PRN oversedation., Administer over 1 Minutes, Starting on Citlali 05/25/24 at 1138, Give over 15 seconds. Maximum total dose of 1 mg. Continue monitoring until discharge criteria met for a minimum of 2 hours. Use with caution in patients on benzodiazepine therapy., IR Intra-procedure heparin Lock (1000 units/mL High concentration) 5,000 Units 5,000 Units (5 mL), Intravenous, ONCE PRN, line flush, to lock dormant Apheresis IV Port. When verbally ordered by provider during the procedure., Starting on Citlali 05/25/24 at 1322, For 1 dose, Right chest port, IR Intra-procedure $Given by Other Clinician 05/25/2024 1:40 PM MORNING CAREGIVER 5,000 Units heparin lock flush 100 unit/mL injection 5 mL 5 mL, Intracatheter, ONCE, On Citlali 05/25/24 at 1330, For 1 dose, Left chest port $Given by Other Clinician 05/25/2024 2:30 PM MORNING CAREGIVER 5 mLs HYDROmorphone (DILAUDID) tablet 2 mg 2 mg, Oral, ONCE PRN, severe pain, Starting on Citlali 05/25/24 at 1507, For 1 dose $Given 05/25/2024 3:16 PM MORNING CAREGIVER 2 mg lidocaine (LMX4) cream Topical, EVERY 1 HOUR PRN, pain, with VAD insertion, Starting on Citlali 05/25/24 at 1110, Apply at least 30 minutes prior to VAD insertion in divided doses as needed for size of site for insertion. MAX Dose: 2.5 g ( of 5 g tube) Do NOT give if patient has a history of allergy to any local anesthetic or any horacio product. Do NOT use both lidocaine intradermal/subcutaneous injection and the lidocaine cream on the same site., IR Pre-procedure lidocaine 1 % 0.1-1 mL 0.1-1 mL, Other, EVERY 1 HOUR PRN, mild pain with VAD insertion, Starting on Citlali 05/25/24 at 1110, MAX dose 1 mL subcutaneous OR intradermal along the side of the vein in divided doses as needed for VAD insertion. Do NOT give if patient has a history of allergy to any local anesthetic or any horacio product. Do NOT use both lidocaine intradermal/subcutaneous injection and the lidocaine cream on the same site., IR Pre-procedure lidocaine 1 % 1-30 mL 1-30 mL, Intradermal, ONCE PRN, local anesthetic. When verbally ordered by prescriber during the procedure., Starting on Citlali 05/25/24 at 1138, For 1 dose, Dose to be divided into smaller volumes appropriate for the procedure. Provider to administer intradermally., IR Intra-procedure $Given by Other Clinician 05/25/2024 1:58 PM MORNING CAREGIVER 40 mLs midazolam (VERSED) injection 0.5-2 mg 0.5-2 mg, Intravenous, Administer over 1 Minutes, EVERY 4 MIN PRN, sedation, If inadequate response may repeat 0.5 mg IV slowly every 4 minutes PRN sedation until desired response; when verbally requested by provider., Starting on Citlali 05/25/24 at 1138, Doses can be exceeded under direct oversight of patient by physician. This drug may cause significant respiratory depression. Monitor respiratory status and vital signs carefully for 1 hour after each dose., IR Intra-procedure $Given 05/25/2024 2:38 PM MORNING CAREGIVER 0.5 mg $Given 05/25/2024 2:25 PM MORNING CAREGIVER 1 mg $Given 05/25/2024 2:16 PM MORNING CAREGIVER 0.5 mg naloxone (NARCAN) injection 0.2 mg 0.2 mg, Intravenous, EVERY 2 MIN PRN, opioid reversal, Starting on Citlali 05/25/24 at 1138, Administer intravenous route when available and notify provider when administered. For unintended sedation or respiratory depression if all of the below criteria are met: ~ respiratory rate LESS than or EQUAL to 8. ~SaO2 less than 92% and or/end-tidal CO2 is greater than 50. ~ the patient is receiving an opioid, has unintended sedations assessed as RASS (-3), and is currently not on mechanical ventilation. RASS scale moderate (-3) is movement or eye opening to voice but no eye contact. Patient Monitoring Once the patient has demonstrated a response to the naloxone, continue to monitor respiratory rate, depth, oxygen saturation and end-tidal CO2 (if available) every 15 minutes x 2, then every 30 minutes x 2, then every 1 hour x 1 after each naloxone dose. Consider transfer to ICU if patient respiratory parameters have not improved after 4 naloxone doses., IR Intra-procedure naloxone (NARCAN) injection 0.2 mg 0.2 mg, Intramuscular, EVERY 2 MIN PRN, opioid reversal, Starting on Citlali 05/25/24 at 1138, Administer intramuscular if an intravenous route is not available and notify provider when administered. For unintended sedation or respiratory depression if all of the below criteria are met: ~ respiratory rate LESS than or EQUAL to 8. ~SaO2 less than 92% and or/end-tidal CO2 is greater than 50. ~ the patient is receiving an opioid, has unintended sedations assessed as RASS (-3), and is currently not on mechanical ventilation. RASS scale moderate (-3) is movement or eye opening to voice but no eye contact. Patient Monitoring Once the patient has demonstrated a response to the naloxone, continue to monitor respiratory rate, depth, oxygen saturation and end-tidal CO2 (if available) every 15 minutes x 2, then every 30 minutes x 2, then every 1 hour x 1 after each naloxone dose. Consider transfer to ICU if patient respiratory parameters have not improved after 4 naloxone doses., IR Intra-procedure naloxone (NARCAN) injection 0.4 mg 0.4 mg, Intravenous, EVERY 2 MIN PRN, opioid reversal, Starting on Citlali 05/25/24 at 1138, Administer intravenous route when available and notify provider when administered. For unintended sedation or respiratory depression if all of the below criteria are met: ~ respiratory rate LESS than or EQUAL to 8. ~ SaO2 less than 92% and or/end-tidal CO2 is greater than 50. ~ the patient is receiving an opioid, has unintended sedation assessed as RASS (-4) or (-5) and patient is currently not on mechanical ventilation. RASS scale (-4) is deep sedation with no response to voice but movement or eye opening to physical stimulation. RASS scale (-5) is unarousable. Patient Monitoring Once the patient has demonstrated a response to the naloxone, continue to monitor respiratory rate, depth, oxygen saturation and end-tidal CO2 (if available) every 15 minutes x 2, then every 30 minutes x 2, then every 1 hour x 1 after each naloxone dose. Consider transfer to ICU if patient respiratory parameters have not improved after 4 naloxone doses., IR Intra-procedure naloxone (NARCAN) injection 0.4 mg 0.4 mg, Intramuscular, EVERY 2 MIN PRN, opioid reversal, Starting on Citlali 05/25/24 at 1138, Administer intramuscular if an intravenous route is not available and notify provider when administered. For unintended sedation or respiratory depression if all of the below criteria are met: ~ respiratory rate LESS than or EQUAL to 8. ~ SaO2 less than 92% and or/end-tidal CO2 is greater than 50. ~ the patient is receiving an opioid, has unintended sedation assessed as RASS (-4) or (-5) and patient is currently not on mechanical ventilation. RASS scale (-4) is deep sedation with no response to voice but movement or eye opening to physical stimulation. RASS scale (-5) is unarousable. Patient Monitoring Once the patient has demonstrated a response to the naloxone, continue to monitor respiratory rate, depth, oxygen saturation and end-tidal CO2 (if available) every 15 minutes x 2, then every 30 minutes x 2, then every 1 hour x 1 after each naloxone dose. Consider transfer to ICU if patient respiratory parameters have not improved after 4 naloxone doses., IR Intra-procedure sodium chloride (PF) 0.9% PF flush 3 mL 3 mL, Intracatheter, EVERY 8 HOURS, First dose on Citlali 05/25/24 at 1130, to lock peripheral IV dormant line, IR Pre-procedure sodium chloride (PF) 0.9% PF flush 3 mL 3 mL, Intracatheter, EVERY 1 MIN PRN, line flush, other, to ensure patency or to lock dormant line, Starting on Citlali 05/25/24 at 1110, IR Pre-procedure sodium chloride 0.9 % bag TABLE SOLN 1 Bag, TABLE SOLN, EVERY 5 MIN PRN, other, Catheter prep table solution use as directed by provider., Starting on Citlali 05/25/24 at 1110, For 5 doses, Maximum total dose 5000 mL Nurse will document number of bags used at the end of the procedure., IR Intra-procedure documented in this encounter Active and Recently Administered Medications Times are shown in MORNING CAREGIVER. Scheduled Medication Order 05/23/2024 05/24/2024 05/25/2024 ceFAZolin (ANCEF) 2 g in 100 mL D5W intermittent infusion (COMPLETED) Routine, 2 g, Intravenous, PRE-OP/PRE-PROCEDURE, Starting on Citlali 05/25/24 at 1110, For 1 dose, Give dose within 1 hour PRIOR to procedure. If patient weight is greater than or equal to 120 kg change dose to 3 g., Indications: Perioperative Pharmacoprophylaxis, IR Pre-procedure 1217 ($New Bag - Pro vider: Hattie Ballesteros RN)1255 (Stopped - Provider: Marly Narvaez RN) heparin lock flush 10 unit/mL injection 5-10 mL 5-10 mL, Intracatheter, EVERY 24 HOURS, First dose on Citlali 05/25/24 at 1530, To lock each dormant port in dual implanted port. MAX: 5 mL of heparin for each lumen Check PRN heparin flush order to see when the last dose of the PRN heparin was given before administering this heparin dose. Flush with sodium chloride 0.9% followed by the heparin flush. 1530 (Canceled Entry - Provider: Orders Generic Provider - Comment: Automatically canceled at discontinue of medication order) heparin lock flush 100 unit/mL injection 5 mL (COMPLETED) 5 mL, Intracatheter, ONCE, On Citlali 05/25/24 at 1330, For 1 dose, Left chest port 1430 ($Given by Othe r Clinician - Provider: Marly Narvaez RN - Comment: Laury Michel MD) heparin lock flush 100 unit/mL injection 5-10 mL 5-10 mL, Intracatheter, EVERY 28 DAYS, First dose on Citlali 05/25/24 at 1530, To de-access each port in dual implanted port. Flush with 10 mL NS sodium chloride 0.9% flush followed by 5 mL heparin (100 units/mL) at discharge and at least every 28 days. MAX: 5 mL per each port lumen 1530 (Canceled Entry - Provider: Orders Generic Provider - Comment: Automatically canceled at discontinue of medication order) sodium chloride (PF) 0.9% PF flush 10-20 mL 10-20 mL, Intracatheter, EVERY 28 DAYS, First dose on Citlali 05/25/24 at 1530, To flush and lock each port in dual implanted port. Flush each port with 10 mL sodium chloride 0.9% followed by either heparin or anticoagulant citrate as ordered. Max: 10 mL per each port lumen. 1530 (Canceled Entry - Provider: Orders Generic Provider - Comment: Automatically canceled at discontinue of medication order) sodium chloride (PF) 0.9% PF flush 3 mL 3 mL, Intracatheter, EVERY 8 HOURS, First dose on Citlali 05/25/24 at 1130, to lock peripheral IV dormant line, IR Pre-procedure 1130 (Canceled Entry - Provider: Orders Generic Provider - Comment: Automatically canceled at discontinue of medication order) PRN Medication Order 05/23/2024 05/24/2024 05/25/2024 fentaNYL (PF) (SUBLIMAZE) injection 25-50 mcg 25-50 mcg, Intravenous, EVERY 5 MIN PRN, severe pain, If inadequate response may repeat 25 mcg IV slowly every 5 min PRN severe pain; when verbally requested by provider., Administer over 2 Minutes, Starting on Citlali 05/25/24 at 1138, Doses can be exceeded under direct oversight of patient by physician., IR Intra-procedure 1306 ($Given - Provi nas: Marly Narvaez RN)1313 ($Given - Provider: Marly Narvaez RN)1318 ($Given - Provider: Marly Narvaez, RN)1325 ($Given - Provider: Marly Narvaez, RN)1333 ($Given - Provider: Marly Narvaez, RN)1356 ($Given - Provider: Marly Narvaez, RN)1404 ($Given - Provider: Marly Narvaez, RN)1416 ($Given - Provider: Marly Narvaez, RN)1425 ($Given - Provider: Marly Narvaez, RN)1438 ($Given - Provider: Marly Narvaez RN) flumazenil (ROMAZICON) injection 0.2 mg 0.2 mg, Intravenous, EVERY 1 MIN PRN, benzodiazepine reversal, If inadequate response after 45 seconds, may repeat 0.2 mg IV every 1 minute PRN oversedation., Administer over 1 Minutes, Starting on Citlali 05/25/24 at 1138, Give over 15 seconds. Maximum total dose of 1 mg. Continue monitoring until discharge criteria met for a minimum of 2 hours. Use with caution in patients on benzodiazepine therapy., IR Intra-procedure heparin Lock (1000 units/mL High concentration) 5,000 Units (COMPLETED) 5,000 Units (5 mL), Intravenous, ONCE PRN, line flush, to lock dormant Apheresis IV Port. When verbally ordered by provider during the procedure., Starting on Citlali 05/25/24 at 1322, For 1 dose, Right chest port, IR Intra-procedure 1340 ($Given by Greer schreiber Clinician - Provider: Marly Narvaez RN - Comment: Laury Michel MD) heparin lock flush 10 unit/mL injection 5-10 mL 5-10 mL, Intracatheter, EVERY 1 HOUR PRN, post meds or blood draw, other, to lock each port in dual implanted port, Starting on Citlali 05/25/24 at 1518, Flush each port lumen with the sodium chloride 0.9% flush followed by the heparin flush. MAX dose: 5 mL of heparin for each lumen HYDROmorphone (DILAUDID) tablet 2 mg (COMPLETED) 2 mg, Oral, ONCE PRN, severe pain, Starting on Citlali 05/25/24 at 1507, For 1 dose 1516 ($Given - Provi nas: Hattie Ballesteros RN) lidocaine (LMX4) cream Topical, EVERY 1 HOUR PRN, pain, with VAD insertion, Starting on Citlali 05/25/24 at 1110, Apply at least 30 minutes prior to VAD insertion in divided doses as needed for size of site for insertion. MAX Dose: 2.5 g ( of 5 g tube) Do NOT give if patient has a history of allergy to any local anesthetic or any horacio product. Do NOT use both lidocaine intradermal/subcutaneous injection and the lidocaine cream on the same site., IR Pre-procedure lidocaine 1 % 0.1-1 mL 0.1-1 mL, Other, EVERY 1 HOUR PRN, mild pain with VAD insertion, Starting on Citlali 05/25/24 at 1110, MAX dose 1 mL subcutaneous OR intradermal along the side of the vein in divided doses as needed for VAD insertion. Do NOT give if patient has a history of allergy to any local anesthetic or any horacio product. Do NOT use both lidocaine intradermal/subcutaneous injection and the lidocaine cream on the same site., IR Pre-procedure lidocaine 1 % 1-30 mL (COMPLETED) 1-30 mL, Intradermal, ONCE PRN, local anesthetic. When verbally ordered by prescriber during the procedure., Starting on Citlali 05/25/24 at 1138, For 1 dose, Dose to be divided into smaller volumes appropriate for the procedure. Provider to administer intradermally., IR Intra-procedure 1358 ($Given by Ot[facility] r Clinician - Provider: Marly Narvaez RN - Comment: Laury Michel MD) midazolam (VERSED) injection 0.5-2 mg 0.5-2 mg, Intravenous, Administer over 1 Minutes, EVERY 4 MIN PRN, sedation, If inadequate response may repeat 0.5 mg IV slowly every 4 minutes PRN sedation until desired response; when verbally requested by provider., Starting on Citlali 05/25/24 at 1138, Doses can be exceeded under direct oversight of patient by physician. This drug may cause significant respiratory depression. Monitor respiratory status and vital signs carefully for 1 hour after each dose., IR Intra-procedure 1307 ($Given - Provi nas: Marly Narvaez RN)1312 ($Given - Provider: Marly Narvaez RN)1318 ($Given - Provider: Marly Narvaez RN)1325 ($Given - Provider: Marly Narvaez, SOFIA)1333 ($Given - Provider: Marly Narvaez, SOFIA)1356 ($Given - Provider: Marly Narvaez, SOFIA)1404 ($Given - Provider: Marly Narvaez, RN)1416 ($Given - Provider: Marly Narvaez, SOFIA)1425 ($Given - Provider: Marly Narvaez, RN)1438 ($Given - Provider: Marly Narvaez, SOFIA) naloxone (NARCAN) injection 0.2 mg(Linked Group 1) 0.2 mg, Intravenous, EVERY 2 MIN PRN, opioid reversal, Starting on Citlali 05/25/24 at 1138, Administer intravenous route when available and notify provider when administered. For unintended sedation or respiratory depression if all of the below criteria are met: ~ respiratory rate LESS than or EQUAL to 8. ~SaO2 less than 92% and or/end-tidal CO2 is greater than 50. ~ the patient is receiving an opioid, has unintended sedations assessed as RASS (-3), and is currently not on mechanical ventilation. RASS scale moderate (-3) is movement or eye opening to voice but no eye contact. Patient Monitoring Once the patient has demonstrated a response to the naloxone, continue to monitor respiratory rate, depth, oxygen saturation and end-tidal CO2 (if available) every 15 minutes x 2, then every 30 minutes x 2, then every 1 hour x 1 after each naloxone dose. Consider transfer to ICU if patient respiratory parameters have not improved after 4 naloxone doses., IR Intra-procedure naloxone (NARCAN) injection 0.2 mg(Linked Group 1) 0.2 mg, Intramuscular, EVERY 2 MIN PRN, opioid reversal, Starting on Citlali 05/25/24 at 1138, Administer intramuscular if an intravenous route is not available and notify provider when administered. For unintended sedation or respiratory depression if all of the below criteria are met: ~ respiratory rate LESS than or EQUAL to 8. ~SaO2 less than 92% and or/end-tidal CO2 is greater than 50. ~ the patient is receiving an opioid, has unintended sedations assessed as RASS (-3), and is currently not on mechanical ventilation. RASS scale moderate (-3) is movement or eye opening to voice but no eye contact. Patient Monitoring Once the patient has demonstrated a response to the naloxone, continue to monitor respiratory rate, depth, oxygen saturation and end-tidal CO2 (if available) every 15 minutes x 2, then every 30 minutes x 2, then every 1 hour x 1 after each naloxone dose. Consider transfer to ICU if patient respiratory parameters have not improved after 4 naloxone doses., IR Intra-procedure naloxone (NARCAN) injection 0.4 mg(Linked Group 1) 0.4 mg, Intravenous, EVERY 2 MIN PRN, opioid reversal, Starting on Citlali 05/25/24 at 1138, Administer intravenous route when available and notify provider when administered. For unintended sedation or respiratory depression if all of the below criteria are met: ~ respiratory rate LESS than or EQUAL to 8. ~ SaO2 less than 92% and or/end-tidal CO2 is greater than 50. ~ the patient is receiving an opioid, has unintended sedation assessed as RASS (-4) or (-5) and patient is currently not on mechanical ventilation. RASS scale (-4) is deep sedation with no response to voice but movement or eye opening to physical stimulation. RASS scale (-5) is unarousable. Patient Monitoring Once the patient has demonstrated a response to the naloxone, continue to monitor respiratory rate, depth, oxygen saturation and end-tidal CO2 (if available) every 15 minutes x 2, then every 30 minutes x 2, then every 1 hour x 1 after each naloxone dose. Consider transfer to ICU if patient respiratory parameters have not improved after 4 naloxone doses., IR Intra-procedure naloxone (NARCAN) injection 0.4 mg(Linked Group 1) 0.4 mg, Intramuscular, EVERY 2 MIN PRN, opioid reversal, Starting on Citlali 05/25/24 at 1138, Administer intramuscular if an intravenous route is not available and notify provider when administered. For unintended sedation or respiratory depression if all of the below criteria are met: ~ respiratory rate LESS than or EQUAL to 8. ~ SaO2 less than 92% and or/end-tidal CO2 is greater than 50. ~ the patient is receiving an opioid, has unintended sedation assessed as RASS (-4) or (-5) and patient is currently not on mechanical ventilation. RASS scale (-4) is deep sedation with no response to voice but movement or eye opening to physical stimulation. RASS scale (-5) is unarousable. Patient Monitoring Once the patient has demonstrated a response to the naloxone, continue to monitor respiratory rate, depth, oxygen saturation and end-tidal CO2 (if available) every 15 minutes x 2, then every 30 minutes x 2, then every 1 hour x 1 after each naloxone dose. Consider transfer to ICU if patient respiratory parameters have not improved after 4 naloxone doses., IR Intra-procedure sodium chloride (PF) 0.9% PF flush 10-20 mL 10-20 mL, Intracatheter, EVERY 1 MIN PRN, line flush, post meds or blood draw, to flush each lumen of the CVC Implanted port, Starting on Citlali 05/25/24 at 1518, 10 mL per port lumen post IV meds; 20 mL per port lumen post post blood draw. sodium chloride (PF) 0.9% PF flush 10-20 mL 10-20 mL, Intracatheter, EVERY 1 HOUR PRN, other, to de-access port when not in use, Starting on Citlali 05/25/24 at 1518, Use sodium chloride 0.9% at least daily [...] or to lock dormant line, Starting on Citlali 05/25/24 at 1110, IR Pre-procedure sodium chloride 0.9 % bag TABLE SOLN 1 Bag, TABLE SOLN, EVERY 5 MIN PRN, other, Catheter prep table solution use as directed by provider., Starting on Citlali 05/25/24 at 1110, For 5 doses, Maximum total dose 5000 mL Nurse will document number of bags used at the end of the procedure., IR Intra-procedure Linked Groups Order Group 1: naloxone (NARCAN) injection 0.2 mgJump to med 0.2 mg, Intravenous, EVERY 2 MIN PRN, opioid reversal, Starting on Citlali 05/25/24 at 1138, Administer intravenous route when available and notify provider when administered. For unintended sedation or respiratory depression if all of the below criteria are met: ~ respiratory rate LESS than or EQUAL to 8. ~SaO2 less than 92% and or/end-tidal CO2 is greater than 50. ~ the patient is receiving an opioid, has unintended sedations assessed as RASS (-3), and is currently not on mechanical ventilation. RASS scale moderate (-3) is movement or eye opening to voice but no eye contact. Patient Monitoring Once the patient has demonstrated a response to the naloxone, continue to monitor respiratory rate, depth, oxygen saturation and end-tidal CO2 (if available) every 15 minutes x 2, then every 30 minutes x 2, then every 1 hour x 1 after each naloxone dose. Consider transfer to ICU if patient respiratory parameters have not improved after 4 naloxone doses., IR Intra- procedure Or naloxone (NARCAN) injection 0.4 mgJump to med 0.4 mg, Intravenous, EVERY 2 MIN PRN, opioid reversal, Starting on Citlali 05/25/24 at 1138, Administer intravenous route when available and notify provider when administered. For unintended sedation or respiratory depression if all of the below criteria are met: ~ respiratory rate LESS than or EQUAL to 8. ~ SaO2 less than 92% and or/end-tidal CO2 is greater than 50. ~ the patient is receiving an opioid, has unintended sedation assessed as RASS (-4) or (-5) and patient is currently not on mechanical ventilation. RASS scale (-4) is deep sedation with no response to voice but movement or eye opening to physical stimulation. RASS scale (-5) is unarousable. Patient Monitoring Once the patient has demonstrated a response to the naloxone, continue to monitor respiratory rate, depth, oxygen saturation and end-tidal CO2 (if available) every 15 minutes x 2, then every 30 minutes x 2, then every 1 hour x 1 after each naloxone dose. Consider transfer to ICU if patient respiratory parameters have not improved after 4 naloxone doses., IR Intra-procedure Or naloxone (NARCAN) injection 0.2 mgJump to med 0.2 mg, Intramuscular, EVERY 2 MIN PRN, opioid reversal, Starting on Citlali 05/25/24 at 1138, Administer intramuscular if an intravenous route is not available and notify provider when administered. For unintended sedation or respiratory depression if all of the below criteria are met: ~ respiratory rate LESS than or EQUAL to 8. ~SaO2 less than 92% and or/end-tidal CO2 is greater than 50. ~ the patient is receiving an opioid, has unintended sedations assessed as RASS (-3), and is currently not on mechanical ventilation. RASS scale moderate (-3) is movement or eye opening to voice but no eye contact. Patient Monitoring Once the patient has demonstrated a response to the naloxone, continue to monitor respiratory rate, depth, oxygen saturation and end-tidal CO2 (if available) every 15 minutes x 2, then every 30 minutes x 2, then every 1 hour x 1 after each naloxone dose. Consider transfer to ICU if patient respiratory parameters have not improved after 4 naloxone doses., IR Intra- procedure Or naloxone (NARCAN) injection 0.4 mgJump to med 0.4 mg, Intramuscular, EVERY 2 MIN PRN, opioid reversal, Starting on Citlali 05/25/24 at 1138, Administer intramuscular if an intravenous route is not available and notify provider when administered. For unintended sedation or respiratory depression if all of the below criteria are met: ~ respiratory rate LESS than or EQUAL to 8. ~ SaO2 less than 92% and or/end-tidal CO2 is greater than 50. ~ the patient is receiving an opioid, has unintended sedation assessed as RASS (-4) or (-5) and patient is currently not on mechanical ventilation. RASS scale (-4) is deep sedation with no response to voice but movement or eye opening to physical stimulation. RASS scale (-5) is unarousable. Patient Monitoring Once the patient has demonstrated a response to the naloxone, continue to monitor respiratory rate, depth, oxygen saturation and end-tidal CO2 (if available) every 15 minutes x 2, then every 30 minutes x 2, then every 1 hour x 1 after each naloxone dose. Consider transfer to ICU if patient respiratory parameters have not improved after 4 naloxone doses., IR Intra- procedure documented in this encounter Care Teams Care Connector Relationship Specialty Start Date End Date No Ref-Primary, Physician PCP - General 03/15/24 06/17/24 Mor Ramsey Medical Student 04/03/24 Case Samuel MD [address] [place] [id number], [id number] [place] [address] Assigned Pediatric Specialist Provider 05/18/24 documented as of this encounter
--- OUTSIDE RECORDS SUMMARY | 2024-06-21 22:18 | XMS_ITS | Encounter Summary ---
Author Organization [facility] Address [address] [place] [address]. [place] [address] Care Team Providers Care Manager Advanced Name Role Phone No Ref-Primary, Physician Primary Care Provider Mor Ramsey Unavailable Unavailable Case Samuel MD Unavailable [phone] Encounter Details Date Type Department Care Team (Latest Contact Info) Description 05/28/2024 Travel Social History Tobacco Use Types Packs/Day [...] on file Legal Sex Female 8:25 AM SLEEVE MAKER Gender Identity Not on file Sexual Orientation Not on file documented as of this encounter Plan of Treatment Not on file documented as of this encounter Goals Goal Patient Goal Type Associated Problems Recent Progress Patient-Stated? Author Pain Management General On track( 025 12:40 PM SLEEVE MAKER) Yes Juhi Benson, RN Note: Goal Statement: [...] on filedocumented in this encounter Care Teams Manager Advanced Relationship Specialty Start Date End Date No Ref-Primary, Physician PCP - General 03/15/24 06/17/24 Mor Ramsey Medical Student 04/03/24 Case Samuel MD [address] [place] [address] [address], [address] [place] [address] Assigned Pediatric Specialist Provider 05/18/24 documented as of this encounter
--- OUTSIDE RECORDS SUMMARY | 2024-06-21 22:18 | XMS_ITS | Encounter Summary ---
Author Organization [facility] Address [address] [place] [address]. 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 Author Pain Management General On track( 025 12:40 PM HEAD SUGAR REPROCESS OPERATOR) Yes Juhi Benson, RN Note: Goal [...] on filedocumented in this encounter Care Teams Marketing Ambassador Relationship Specialty Start Date End Date No Ref-Primary, Physician PCP - General 03/15/24 06/17/24 Mor Ramsey Medical Student 04/03/24 Case Samuel MD [address] [place] [address] [address], [address] [place] [address] Assigned Pediatric Specialist Provider 05/18/24 documented as of this encounter
--- OUTSIDE RECORDS SUMMARY | 2024-06-21 22:18 | XMS_ITS | Encounter Summary ---
Author Organization [employer] Address [address] [place] [address] Care Team Providers Care Retail Marketing Coordinator Name Role Phone No Ref-Primary, Physician Primary Care Provider Mor Ramsey Unavailable Unavailable Case Samuel MD Unavailable [phone] Juhi Benson RN Unavailable Unavailable Reason for Visit * Reason Comments Sickle Cell Pain Crisis Encounter Details Date Type Department Care Team (Late st Contact Info) Description 05/31/2024 9:56 PM BUSINESS PERFORMANCE MANAGER - 06/01/2024 12:46 AM [facility] Emergency [facility] Emergency Room Formerly [facility], [id number] [place] [address] Carley Riggins MD [address] [address] Sickle cell pain crisis (H) Discharge Disposition: [...] on file Legal Sex Female 8:25 AM BUSINESS PERFORMANCE MANAGER Gender Identity Not on file Sexual Orientation Not on file documented as of this encounter Last Filed Vital Signs Vital Sign Reading Time Taken Comments Blood Pressure 118/63 06/01/2024 12:41 AM BUSINESS PERFORMANCE MANAGER Pulse 71 06/01/2024 12:41 AM BUSINESS PERFORMANCE MANAGER Temperature 36.7 C (98 F) 05/31/2024 9:39 PM BUSINESS PERFORMANCE MANAGER Respiratory Rate 20 05/31/2024 9:39 PM BUSINESS PERFORMANCE MANAGER Oxygen Saturation 98% 06/01/2024 12:41 AM BUSINESS PERFORMANCE MANAGER Inhaled Oxygen Concentration - - Weight 54.4 kg (120 lb) 05/31/2024 9:39 PM BUSINESS PERFORMANCE MANAGER Height 154.9 cm (5' 1) 05/31/2024 9:39 PM BUSINESS PERFORMANCE MANAGER Body Mass Index 22.67 05/31/2024 9:39 PM BUSINESS PERFORMANCE MANAGER documented in this encounter Discharge Instructions * Attachments The following attachments cannot be sent through Care Everywhere. * Sickle Cell Crisis ([place]ibout[place]) documented in this encounter Medications at Time [...] tablet by mouth daily. 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 40 tablet 05/29/2024 documented as of this encounter ED Notes * Carley Riggins MD - 05/31/2024 9:48 PM CST EMERGENCY DEPARTMENT ENCOUNTER NAME: Gianna Hernández AGE: [age] year old female DATE OF : 1995 EVALUATION DATE & TIME: No admission date for patient encounter. PCP: No Ref-Primary, Physician Chief Complaint Patient presents with Sickle Cell Pain Crisis : FINAL IMPRESSION 1. Sickle cell pain crisis (H) ED COURSE & MEDICAL DECISION MAKING Pertinent Labs & Imaging studies reviewed. (See chart for details) 29 year old female presents to the Emergency Department for evaluation of sickle cell pain crisis. On chart review, patient has been seen about every 2 days recently in the emergency department for same. She denies any fever or symptoms consistent with acute chest syndrome. She admits that she has not had her outpatient Dilaudid and has started having sweats and I do suspect there is some component of opiate withdrawal that is probably contributory as well as exacerbating her chronic pain without being on her home medications. CBC and reticulocytes are at baseline. Per her care plan she was given a liter of lactated Ringer's, Zofran, p.o. Benadryl, and doses of IV Dilaudid and is now feeling improved. Will discharge at this time. Initial Vitals Reviewed. 9:47 PM I met with the patient, obtained history, performed an initial exam, and discussed options and plan for diagnostics and treatment here in the ED. At the conclusion of the encounter I discussed the results of all of the tests and the disposition.The questions were answered. The patient or family acknowledged understanding and was agreeable with the care plan. 0 minutes critical care time, see procedure note below for details if relevant Medical Decision Making History: Supplemental history from: N/A External Record(s) reviewed: Documented in chart, ED visits for same 05/29/2024, 05/28/2024, 05/27/2024, 05/25/2024 Work Up: Chart documentation includes differential considered and any EKGs or imaging independently interpreted by provider, where specified. In additional to work up documented, I considered the following work up: Documented in chart, if applicable. External consultation: Discussion of management with another provider: Documented in chart, if applicable Complicating factors: Care impacted by chronic illness: Chronic Pain Care affected by social determinants of health: N/A Disposition considerations: Discharge. I recommended the patient continue their current prescription strength medication(s): home dilaudid. I considered admission, but ultimately discharged patient with clinical improvement. Not Applicable MEDICATIONS GIVEN IN THE EMERGENCY: Medications HYDROmorphone (DILAUDID) injection 2 mg (has no administration in time range) lactated ringers infusion (has no administration in time range) ondansetron (ZOFRAN) injection 8 mg (has no administration in time range) NEW PRESCRIPTIONS STARTED AT TODAY'S ER VISIT New Prescriptions No medications on file HISTORY OF PRESENT ILLNESS Patient information was obtained from: Patient Use of Intrepreter: N/A Gianna Hernández is a 29 year old female with history of sickle cell anemia with crisis and chronic pain syndrome who presents for evaluation of sickle cell pain crisis. Patient reports her pharmacy has been out of stock of dilaudid, so she has not had her medication for 2 days. She endorses diaphoresis, but denies chest pain. She has a plan in place through hematology, and requests that she receive medication through the port in her left chest. She recently moved to [place] from [place], and notes the difference in temperature may be exacerbating her symptoms. Patient denies any other complaints at this time. 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 Visit to [facility] ER on 29-May-2024 for sickle cell pain crisis. Patient seen earlier in the day and received IV dilaudid, then went to hematology appointment, where they recommended a transfusion but the patient refused. Hemoglobin 7.1, no indication foremergent transfusion. Given IV dilaudid and oral benadryl. Discharged with instructions to continuehome pain medication use, including home oral hydromorphone. 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 Recently moved to [place] from [place], [place]. She is 1 of 9 [...] Social Connections: Socially Integrated (03/28/2024) [facility] [...] you worried about losing your housing?: No VITALS Patient Vitals for the past 24 hrs: BP Temp Temp src Pulse Resp SpO2 Height Weight 05/31/24 2139 116/56 98 ??F (36.7 ??C) Oral 82 20 95 % 1.549 m (5' 1) 54.4 kg (120 lb) PHYSICAL EXAM VITAL SIGNS: BP 116/56 Pulse 82 Temp 98 ??F (36.7 ??C) (Oral) Resp 20 Ht 1.549 m (5' 1) Wt 54.4 kg (120 lb) SpO2 95% BMI 22.67 kg/m?? Constitutional: Awake, no acute distress HENT: Atraumatic, oropharynx without exudate or erythema, membranes moist Lymph: No adenopathy Eyes: EOM intact, PERRL, no injection Neck: Supple Respiratory: Clear to auscultation bilaterally, no wheezes or crackles Cardiovascular: Regular rate and rhythm, single S1 and S2 GI: Soft, nontender, nondistended, no rebound or guarding Musculoskeletal: Moves all extremities, no lower extremity edema, no deformities Skin: Warm, dry Neurologic: Alert and oriented x3, no focal deficits noted LAB All pertinent labs reviewed and interpreted. Labs Ordered and Resulted from Time of ED Arrival to Time of ED Departure RETICULOCYTE COUNT - Abnormal Result Value % Reticulocyte 22.7 (*) Absolute Reticulocyte 0.631 (*) BASIC METABOLIC PANEL - Abnormal Sodium 133 (*) Potassium 4.1 Chloride 102 Carbon Dioxide (CO2) 20 (*) Anion Gap 11 Urea Nitrogen 9.9 Creatinine 0.70 GFR Estimate >90 Calcium 9.0 Glucose 97 CBC WITH PLATELETS AND DIFFERENTIAL - Abnormal WBC Count 15.4 (*) RBC Count 2.73 (*) Hemoglobin 8.9 (*) Hematocrit 24.8 (*) MCV 91 MCH 32.6 MCHC 35.9 RDW 21.2 (*) Platelet Count 399 % Neutrophils 56 % Lymphocytes 27 % Monocytes 14 % Eosinophils 1 % Basophils 1 % Immature Granulocytes 1 NRBCs per 100 WBC 2 (*) Absolute Neutrophils 8.7 (*) Absolute Lymphocytes 4.2 Absolute Monocytes 2.2 (*) Absolute Eosinophils 0.2 Absolute Basophils 0.1 Absolute Immature Granulocytes 0.1 Absolute NRBCs 0.3 RBC AND PLATELET MORPHOLOGY - Abnormal RBC Morphology Confirmed RBC Indices Platelet Assessment Value: Automated Count Confirmed. Platelet morphology is normal. [place] Cells Slight (*) Elliptocytes Slight (*) [place] Bodies Present (*) Polychromasia Slight (*) Sickle Cells Moderate (*) Target Cells Slight (*) RADIOLOGY Reviewed all pertinent imaging. Please see official radiology report. No orders to display EKG I have independently reviewed and interpreted the EKG(s) documented above. PROCEDURES I, Alex Manriquez, am serving as a scribe to document services personally performed by Dr. Riggins based on my observation and the provider's statements to me. I, Carley Riggins MD attest that Alex Manriquez is acting in a scribe capacity, has observed my performance of the services and has documented them in accordance with my direction. Carley Riggins M.D. Emergency Medicine [facility] EMERGENCY ROOM [address] [facility] [id number] Dept: [phone] Carley Riggins MD 06/01/24 0048 NESS PERFORMANCE MANAGER * Aminata Farley RN - 05/31/2024 9:40 PM CST Pt is coming in with a sickle cell crisis. Pt was unable to grain picker her medication d/t pharmacy needing to order it. Tylenol last at 1700 Ibuprofen last at 2100 Triage Assessment (Adult) Row Name 05/31/242139 Triage Assessment Airway WDL WDL Respiratory WDL Respiratory WDL WDL Skin Circulation/Temperature WDL Skin Circulation/Temperature WDL WDL Cardiac WDL Cardiac WDL WDL Peripheral/Neurovascular WDL Peripheral Neurovascular WDL WDL Cognitive/Neuro/Behavioral WDL Cognitive/Neuro/Behavioral WDL WDL NESS PERFORMANCE MANAGER documented in this encounter Plan of Treatment Not on file documented as of this encounter Goals Goal Patient Goal Type Associated Problems Recent Progress Patient-Stated? Author Pain Management General On track( 025 12:40 PM BUSINESS PERFORMANCE MANAGER) Yes Juhi Benson, RN Note: Goal [...] Associated Diagnosis Comments RBC AND PLATELET MORPHOLOGY STAT 05/31/2024 10:21 PM BUSINESS PERFORMANCE MANAGER CBC WITH PLATELETS AND DIFFERENTIAL STAT 05/31/2024 10:21 PM BUSINESS PERFORMANCE MANAGER CBC WITH PLATELETS & DIFFERENTIAL STAT 05/31/2024 10:21 PM BUSINESS PERFORMANCE MANAGER RETICULOCYTE COUNT STAT 05/31/2024 10 :21 PM BUSINESS PERFORMANCE MANAGER BASIC METABOLIC PANEL STAT 05/31/2024 10:21 PM BUSINESS PERFORMANCE MANAGER documented in this encounter Results * (ABNORMAL) RBC and Platelet Morphology (05/31/2024 10:21 PM BUSINESS PERFORMANCE MANAGER) [facility] RBC Morphology Confirmed RBC Indices 05/31/2024 10:59 PM BUSINESS PERFORMANCE MANAGER [facility] Platelet Assessment Automated Count Confirmed. Platelet morphology is normal. Automated Count Confirmed. Platelet morphology is normal. JARET 05/31/2024 10:59 PM BUSINESS PERFORMANCE MANAGER [facility] Mary Cells Slight(A) None Seen JARET 05/31/2024 10:59 PM BUSINESS PERFORMANCE MANAGER [facility] Elliptocytes Slight(A) None Seen JARET 05/31/2024 10:59 PM BUSINESS PERFORMANCE MANAGER [facility] [place] Bodies Present(A) None Seen JARET 05/31/2024 10:59 PM BUSINESS PERFORMANCE MANAGER [facility] Polychromasia Slight(A) None Seen JARET 05/31/2024 10:59 PM BUSINESS PERFORMANCE MANAGER [facility] Sickle Cells Moderate(A) None Seen JARET 05/31/2024 10:59 PM BUSINESS PERFORMANCE MANAGER [facility] Target Cells Slight(A) None Seen JARET 05/31/2024 10:59 PM BUSINESS PERFORMANCE MANAGER [facility] Blood BLOOD SPECIMEN / Unknown Venipuncture / Unknown 05/31/2024 10:21 PM BUSINESS PERFORMANCE MANAGER 05/31/2024 10:24 PM BUSINESS PERFORMANCE MANAGER us Carley Riggins MD LAB - BLOOD ORDERABLES [address] Result [facility] [address] [place] [address], [facility] * (ABNORMAL) CBC with platelets and differential (05/31/2024 10:21 PM BUSINESS PERFORMANCE MANAGER) [facility] WBC Count 15.4(H) 4.0 - 11.0 10e3/uL 05/31/2024 10:55 PM [facility] RBC Count 2.73(L) 3.80 - 5.20 10e6/uL 05/31/2024 10:55 PM [facility] Hemoglobin 8.9(L) 11.7 - 15.7 g/dL 05/31/2024 10:55 PM [facility] Hematocrit 24.8(L) 35.0 - 47.0 % 05/31/2024 10:55 PM [facility] MCV 91 78 - 100 fL 05/31/2024 10:55 PM [facility] MCH 32.6 26.5 - 33.0 pg 05/31/2024 10:55 PM [facility] MCHC 35.9 31.5 - 36.5 g/dL 05/31/2024 10:55 PM [facility] RDW 21.2(H) 10.0 - 15.0 % 05/31/2024 10:55 PM [facility] Platelet Count 399 150 - 450 10e3/uL 05/31/2024 10:55 PM [facility] % Neutrophils 56 % 05/31/2024 10:55 PM [facility] % Lymphocytes 27 % 05/31/2024 10:55 PM [facility] % Monocytes 14 % 05/31/2024 10:55 PM [facility] % Eosinophils 1 % 05/31/2024 10:55 PM [facility] % Basophils 1 % 05/31/2024 10:55 PM [facility] % Immature Granulocytes 1 % 05/31/2024 10:55 PM [facility] NRBCs per 100 WBC 2(H) <1 /100 025 10:55 PM [facility] Absolute Neutrophils 8.7(H) 1.6 - 8.3 10e3/uL 05/31/2024 10:55 PM [facility] Absolute Lymphocytes 4.2 0.8 - 5.3 10e3/uL 05/31/2024 10:55 PM [facility] Absolute Monocytes 2.2(H) 0.0 - 1.3 10e3/uL 05/31/2024 10:55 PM [facility] Absolute Eosinophils 0.2 0.0 - 0.7 10e3/uL 05/31/2024 10:55 PM [facility] Absolute Basophils 0.1 0.0 - 0.2 10e3/uL 05/31/2024 10:55 PM [facility] Absolute Immature Granulocytes 0.1 <=0.4 10e3/uL 05/31/2024 10:55 PM [facility] Absolute NRBCs 0.3 10e3/uL 05/31/2024 10:55 PM [facility] Blood BLOOD SPECIMEN / Unknown Venipuncture / Unknown 05/31/2024 10:21 PM BUSINESS PERFORMANCE MANAGER 05/31/2024 10:24 PM [facility] us Carley Riggins MD LAB - BLOOD ORDERABLES [address] Result [facility] [address] [place] [address], [facility] * (ABNORMAL) Basic metabolic panel (05/31/2024 10:21 PM [facility]) Sodium 133(L) 135 - 145 mmol/L 05/31/2024 10:46 PM [facility] Potassium 4.1 3.4 - 5.3 mmol/L 05/31/2024 10:46 PM [facility] Chloride 102 98 - 107 mmol/L 05/31/2024 10:46 PM [facility] Carbon Dioxide (CO2) 20(L) 22 - 29 mmol/L 05/31/2024 10:46 PM [facility] Anion Gap 11 7 - 15 mmol/L 05/31/2024 10:46 PM [facility] Urea Nitrogen 9.9 6.0 - 20.0 mg/dL 05/31/2024 10:46 PM [facility] Creatinine 0.70 0.51 - 0.95 mg/dL 05/31/2024 10:46 PM [facility] GFR Estimate >90 >60 mL/min/1.7 3m2 05/31/2024 10:46 PM [facility] Comment:eGFR calculated usin g 2020 CKD-EPI equation. Calcium 9.0 8.8 - 10.4 mg/dL 05/31/2024 10:46 PM [facility] Glucose 97 70 - 99 mg/dL 05/31/2024 10:46 PM BUSINESS PERFORMANCE MANAGER [facility] Blood BLOOD SPECIMEN / Unknown Venipuncture / Unknown 05/31/2024 10:21 PM BUSINESS PERFORMANCE MANAGER 05/31/2024 10:24 PM BUSINESS PERFORMANCE MANAGER Carley Riggins MD LAB - BLOOD ORDERABLES Liss l Result Performing Organization Address [facility]/ZIP Co de Phone Number [facility] [address] [place] [address] PR[place]PER Munoz [id number], [facility] * (ABNORMAL) Reticulocyte count (05/31/2024 10:21 PM BUSINESS PERFORMANCE MANAGER) [facility] % Reticulocyte 22.7(H) 0.5 - 2.0 % 05/31/2024 10:45 PM BUSINESS PERFORMANCE MANAGER [facility] Absolute Reticulocyte 0.631(H) 0.025 - 0.095 10e6/uL 05/31/2024 10:45 PM BUSINESS PERFORMANCE MANAGER [facility] Blood BLOOD SPECIMEN / Unknown Venipuncture / Unknown 05/31/2024 10:21 PM BUSINESS PERFORMANCE MANAGER 05/31/2024 10:24 PM BUSINESS PERFORMANCE MANAGER Carley Riggins MD LAB - BLOOD ORDERABLES Liss l Result Performing Organization Address [facility] de Phone Number [facility] [address] [place] [address] [place] [id number], [facility] documented in this encounter Visit Diagnoses Diagnosis 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 documented in this encounter Administered Medications Inactive Administered Medications - up to 3 most recent administrations Medication Order MAR Action Action Date Dose Rate Site diphenhydrAMINE (BENADRYL) capsule 25 mg 25 mg, Oral, ONCE, On Wed05/31/24 at 2300, For 1 dose $Given 05/31/2024 10:50 PM BUSINESS PERFORMANCE MANAGER 25 mg heparin lock flush 100 unit/mL injection 100 Units 100 Units, Intracatheter, ONCE, On Wed06/01/24 at 0030, For 1 dose $Given 06/01/2024 12:39 AM BUSINESS PERFORMANCE MANAGER 100 Units HYDROmorphone (DILAUDID) injection 2 mg 2 mg, Intravenous, EVERY 1 HOUR PRN, severe pain, Starting on Wed05/31/24 at 2143, For 3 doses $Given 06/01/2024 12:36 AM BUSINESS PERFORMANCE MANAGER 2 mg $Given 05/31/2024 11:42 PM BUSINESS PERFORMANCE MANAGER 2 mg $Given 05/31/2024 10:28 PM BUSINESS PERFORMANCE MANAGER 2 mg lactated ringers infusion at 500 mL/hr, Intravenous, CONTINUOUS, Starting on Wed05/31/24 at 2200, Until Wed05/31/24 at 2359 $New Bag 05/31/2024 10:22 PM BUSINESS PERFORMANCE MANAGER 500 mL/hr ondansetron (ZOFRAN) injection 8 mg 8 mg, Intravenous, ONCE, Administer over 2-5 Minutes, On Wed05/31/24 at 2200, For 1 dose $Given 05/31/2024 10:27 PM BUSINESS PERFORMANCE MANAGER 8 mg documented in this encounter Active and Recently Administered Medications Times are shown in BUSINESS PERFORMANCE MANAGER. Scheduled Medication Order 05/30/2024 05/31/2024 06/01/2024 diphenhydrAMINE (BENADRYL) capsule 25 mg (COMPLETED) 25 mg, Oral, ONCE, On Wed05/31/24 at 2300, For 1 dose 2250 ($Given - Provider: Sabrina Tinoco, SOFIA) heparin lock flush 100 unit/mL injection 100 Units (COMPLETED) 100 Units, Intracatheter, ONCE, On [place] 06/01/24 at 0030, For 1 dose 0039 ($Given - Provi nas: Sabrina Tinoco, RN) ondansetron (ZOFRAN) injection 8 mg (COMPLETED) 8 mg, Intravenous, ONCE, Administer over 2-5 Minutes, On Wed05/31/24 at 2200, For 1 dose 2227 ($Given - Provider: Carlos Charles RN) Continuous Medication Order 05/30/2024 05/31/2024 06/01/2024 lactated ringers infusion () at 500 mL/hr, Intravenous, CONTINUOUS, Starting on Wed05/31/24 at 2200, Until Wed05/31/24 at 2359 2222 ($New Bag - Provider: Carlos Charles RN) 0022 (Stopped - Provider: Sabrina Tinoco, SOFIA) PRN Medication Order 05/30/2024 05/31/2024 06/01/2024 HYDROmorphone (DILAUDID) injection 2 mg (COMPLETED) 2 mg, Intravenous, EVERY 1 HOUR PRN, severe pain, Starting on Wed05/31/24 at 2143, For 3 doses 2228 ($Given - Provider: Carlos Charles RN)2342 ($Given - Provider: Sabrina Tinoco, SOFIA) 0036 ($Given - Provider: Sabrina Tinoco, SOFIA) documented in this encounter Care Teams Retail Marketing Coordinator Relationship Specialty Start Date End Date No Ref-Primary, Physician PCP - General 03/15/24 06/17/24 Roxy Mor Medical Student 04/03/24 Case Samuel MD [address] [place] [address], [address] [place] [address] Assigned Pediatric Specialist Provider 05/18/24 Juhi Benson, SOFIA Specialty Restaurant Kitchen Manager Hematology & Oncology 05/29/24 documented as of this encounter
--- OUTSIDE RECORDS SUMMARY | 2024-06-21 22:18 | XMS_ITS | Encounter Summary ---
Author Organization [facility] Address [address] [place] [address]. [place] [address] Care Team Providers Care Gastrointestinal Technician Name Role Phone No Ref-Primary, Physician Primary Care Provider Mor Ramsey Unavailable Unavailable Case Samuel MD Unavailable [phone] Reason for Visit * Reason Comments Chest Pain Sickle Cell Pain Crisis Encounter Details Date Type Department Care Team (Late st Contact Info) Description 05/22/2024 3:27 PM ENGINEER AND GEOLOGIST - 05/22/2024 6:55 PM ENGINEER AND GEOLOGIST Emergency [facility] Emergency Room [facility] [place] [address] Bernabe Farley MD [facility] [address] [place] [id number] Sickle cell pain crisis (H) Discharge Disposition: [...] on file Legal Sex Female 8:25 AM ENGINEER AND GEOLOGIST Gender Identity Not on file Sexual Orientation Not on file documented as of this encounter Last Filed Vital Signs Vital Sign Reading Time Taken Comments Blood Pressure 111/59 05/22/2024 6:53 PM ENGINEER AND GEOLOGIST Pulse 106 05/22/2024 6:52 PM ENGINEER AND GEOLOGIST Temperature 36.7 C (98.1 F) 05/22/2024 3:11 PM ENGINEER AND GEOLOGIST Respiratory Rate 20 05/22/2024 3:11 PM ENGINEER AND GEOLOGIST Oxygen Saturation 95% 05/22/2024 6:52 PM ENGINEER AND GEOLOGIST Inhaled Oxygen Concentration - - Weight 51.7 kg (114 lb) 05/22/2024 3:11 PM ENGINEER AND GEOLOGIST Height 154.9 cm (5' 1) 05/22/2024 3:11 PM ENGINEER AND GEOLOGIST Body Mass Index 21.54 05/22/2024 3:11 PM ENGINEER AND GEOLOGIST documented in this encounter Discharge Instructions * Attachments The following attachments cannot be sent through Care Everywhere. * Sickle Cell Crisis (Croatian) documented in this encounter Medications at Time [...] tablet 05/24/2024 documented as of this encounter ED Notes * Stephanie Shaw RN - 05/22/2024 6:29 PM CST Bed: [facility] Expected date: Expected time: Means of arrival: Comments: Crash NEER AND GEOLOGIST * Bernabe Farley MD - 05/22/2024 3:27 PM CST EMERGENCY DEPARTMENT ENCOUNTER NAME: Gianna Hernández AGE: [age] year old female DATE OF : 1995 EVALUATION DATE & TIME: 05/22/2024 3:27 PM PCP: No Ref-Primary, Physician ED PROVIDER: Bernabe Farley M.D. Chief Complaint Patient presents with Chest Pain Sickle Cell Pain Crisis FINAL IMPRESSION: 1. Sickle cell pain crisis (H) ED COURSE & MEDICAL DECISION MAKING: Pertinent Labs & Imaging studies reviewed below. All EKGs below represent my independent interpretation. ED Course as of 05/22/242226May 22, 2024 152 I reviewed patient's chart and ED care plan. She has history of sickle cell trait, PE, and hasbeen seen 15 times in the last 27 days of April. Today will be the 16th visit. 6519 Patient is a 29-year-old woman with history of sickle cell trait, here with left-sided chest pain for the past 12 to 16 hours. Feels a little bit lower than the pain she has had over the past couple of days (she was seen in the ER 2 days ago). She currently tachycardic at 112, she is normal oxygenation, temperature, blood pressure. She has a history of PE in the past, but is not on anticoagul ation 175 Chest XR, PA & LAT Unchanged ill-defined hazy opacities in the peripheral right lung, which may correspond with nodular opacities seen on CT chest dated 05/04/2024. No new focal airspace disease. No pleural effusion or pneumothorax. The cardiomediastinal silhouette is unremarkable. 1806 EKG shows sinus tachycardia with rate 103. No acute ischemic ST elevation or depression. Rightaxis deviation. Normal intervals. When compared to prior EKG on May 20, 2024, previously seen Twave inversions in the anteroseptal leads have resolved. Impression: Sinus tachycardia, with resolution of previously seen T wave inversions 1839 Pain improved but did not resolve after few doses, she was given her third dose here, discharged afterwards. 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 Consultation discussion with other provider: Phone conversation with consultants will be documentedin the ED Course Discharge. No recommendations on prescription strength medication(s). N/A. MIPS Criteria Documentation: Not Applicable MEDICATIONS GIVEN IN THE EMERGENCY: Medications HYDROmorphone (DILAUDID) injection 2 mg (2 mg Intravenous $Given 05/22/24 1839) ondansetron (ZOFRAN) injection 4 mg (4 mg Intravenous $Given 05/22/24 1600) lactated ringers BOLUS 500 mL (0 mLs Intravenous Stopped 05/22/24 1734) diphenhydrAMINE (BENADRYL) capsule 25 mg (25 mg Oral $Given 05/22/24 1600) NEW PRESCRIPTIONS STARTED AT TODAY'S ER VISIT Discharge Medication List as of 05/22/2024 6:50 PM HPI Gianna Hernández is a 29 year old female who presents to this ED for evaluation of chest pain andSickle Cell Pain Crisis. Per chart review, patient was seen at [facility] ED on 05/20/24 for sickle cell pain crisis and chest pain. Radiology impression states: Slightly increased bilateral mid to lower lung patchy opacities which may reflect atelectatic changes or pneumonic infiltrates. No pleural effusion. Normal heart size. Multiple H-shaped thoracic vertebra consistent with the history of sickle cell disease. Impression for EKG states: Sinus rhythm. Nonspecific T wave abnormality. Final impression states: sickle cell pain crisis. Patient received IV fluids, antiemetics and Dilaudid per her care plan. Patient as recommended to continue with her hematology follow-up. The patient reports she has been seen in the ED for similar pain several times before. Last night, she started endorsing lower left sided chest pain that feels hard. She also endorses pain with deep inspiration. Patient endorses come sweats, but denies any fevers. She took her pain medications with no relief. She also endorses some nausea. Patient is not on any blood thinners. She has seen the oncologist at the [facility] and has future follow-up appointments for her port. Patient asked for a new pain medication because she reports dilaudid makes her itchy. No other complaints at this time. VITALS: BP 111/59 Pulse (!) 106 Temp 98.1 ??F (36.7 ??C) (Oral) Resp 20 Ht 1.549 m (5' 1) Wt 51.7 kg (114 lb) SpO2 95% BMI 21.54 kg/m?? PHYSICAL EXAM Constitutional: Uncomfortable appearing. HENT: Atraumatic, mucous membranes moist, nose normal. Neck- Supple, gross ROM intact. Eyes: Pupils mid-range, conjunctiva without injection, no discharge. Cardiovascular: Normal heart rate, regular rhythm, no murmurs. Skin: Warm, dry, no rash. Neurologic: Alert & oriented x 3, cranial nerves grossly intact. Psychiatric: Affect normal, cooperative. I, Let Let am serving as a scribe to document services personally performed by Dr. Bernabe Farley based on my observation and the provider's statements to me. I, Bernabe Farley MD attest that Let Let is acting in a scribe capacity, has observed my performance of the services and has documented them in accordance with my direction. Bernabe Farley M.D. Emergency Medicine [facility] EMERGENCY ROOM [address] [facility] [id number] Dept: [phone] Bernabe Farley MD 05/22/242 NEER AND GEOLOGIST * Sanjay Purdy RN - 05/22/2024 3:10 PM CST Has sickle cell. Since last night has chest pain and feels like she cannot catch her breath. Has a history of Pes as well. Triage Assessment (Adult) Row Name 05/22/24 1510 Triage Assessment Airway WDL WDL Respiratory WDL Respiratory WDL WDL Skin Circulation/Temperature WDL Skin Circulation/Temperature WDL WDL Cardiac WDL Cardiac WDL WDL Peripheral/Neurovascular WDL Peripheral Neurovascular WDL WDL Cognitive/Neuro/Behavioral WDL Cognitive/Neuro/Behavioral WDL WDL NEER AND GEOLOGIST documented in this encounter Plan of Treatment Not on file documented as of this encounter Goals Goal Patient Goal Type Associated Problems Recent Progress Patient-Stated? Author Pain Management General On track( 025 12:40 PM ENGINEER AND GEOLOGIST) Yes Juhi Benson, SOFIA Note: Goal Statement: [...] Procedure Name Priority Date/Time Associated Diagnosis Comments XR CHEST 2 VIEWS STAT 05/22/2024 5:19 PM ENGINEER AND GEOLOGIST RBC AND PLATELET MORPHOLOGY STAT 05/22/2024 3:51 PM ENGINEER AND GEOLOGIST CBC WITH PLATELETS AND DIFFERENTIAL STAT 05/22/2024 3:51 PM ENGINEER AND GEOLOGIST CBC WITH PLATELETS & DIFFERENTIAL STAT 05/22/2024 3:51 PM ENGINEER AND GEOLOGIST BASIC METABOLIC PANEL STAT 05/22/2024 3:51 PM ENGINEER AND GEOLOGIST ECG 12-LEAD WITH MUSE SJN,SJO,WWH STAT 05/22/2024 3:14 PM ENGINEER AND GEOLOGIST documented in this encounter Results * Chest XR, PA & LAT (05/22/2024 5:19 PM ENGINEER AND GEOLOGIST) Anatomical Region Laterality Modality Chest Digital Radiogra phy 05/22/2024 5:19 PM ENGINEER AND GEOLOGIST Impressions 05/22/2024 5:42 PM ENGINEER AND GEOLOGIST IMPRESSION: Unchanged ill-defined hazy opacities in the peripheral right lung, which may correspond with nodular opacities seen on CT chest dated 05/04/2024. No new focal airspace disease. No pleural effusion or pneumothorax. The cardiomediastinal silhouette is unremarkable. Narrative 05/22/2024 5:42 PM ENGINEER AND GEOLOGIST EXAM: XR CHEST 2 VIEWS LOCATION: [facility] DATE: 05/22/2024 INDICATION: L chest pain, concern for acute chest syndome COMPARISON: 05/20/2024, CT chest 05/04/2024 Procedure Note Robert Marks MD - 05/22/2024 EXAM: XR CHEST 2 VIEWS LOCATION: [facility] DATE: 05/22/2024 INDICATION: L chest pain, concern for acute chest syndome COMPARISON: 05/20/2024, CT chest 05/04/2024 IMPRESSION: Unchanged ill-defined hazy opacities in the peripheral right lung, whichmay correspond with nodular opacities seen on CT chest dated 05/04/2024. No new focal airspace disease. No pleural effusion or pneumothorax. The cardiomediastinal silhouette is unremarkable. us Bernabe Farley MD [facility] [place] [facility] ORDERA BLES Final Result * (ABNORMAL) RBC and Platelet Morphology (05/22/2024 3:51 PM ENGINEER AND GEOLOGIST) [facility] RBC Morphology Confirmed RBC Indices 05/22/2024 4:30 PM ENGINEER AND GEOLOGIST [facility] Platelet Assessment Automated Count Confirmed. Giant platelets are present.(A) Automated Count Confirmed. Platelet morphology is normal. JARET 05/22/2024 4:30 PM ENGINEER AND GEOLOGIST [facility] Giant Platelets Slight(A) None Seen [facility] 05/22/2024 4:30 PM ENGINEER AND GEOLOGIST [facility] Elliptocytes Slight(A) None Seen JARET 05/22/2024 4:30 PM ENGINEER AND GEOLOGIST [facility] [place] Bodies Present(A) None Seen [facility] 05/22/2024 4:30 PM ENGINEER AND GEOLOGIST [facility] Polychromasia Slight(A) None Seen JARET 05/22/2024 4:30 PM ENGINEER AND GEOLOGIST [facility] RBC Fragments Slight(A) None Seen [facility] 05/22/2024 4:30 PM ENGINEER AND GEOLOGIST [facility] Sickle Cells Moderate(A) None Seen [facility] 05/22/2024 4:30 PM ENGINEER AND GEOLOGIST [facility] Target Cells Slight(A) None Seen [facility] 05/22/2024 4:30 PM [facility] Blood VENOUS LINE / Unknown Venipuncture / Unknown 05/22/2024 3:51 PM ENGINEER AND GEOLOGIST 05/22/2024 3:54 PM ENGINEER AND GEOLOGIST us Bernabe Farley MD LAB - BLOOD ORDERABLES Final Result [facility] [address] [place] [address], [place] * (ABNORMAL) CBC with platelets and differential (05/22/2024 3:51 PM ENGINEER AND GEOLOGIST) WBC Count 14.5(H) 4.0 - 11.0 10e3/uL 05/22/2024 4:30 PM [facility] RBC Count 2.59(L) 3.80 - 5.20 10e6/uL 05/22/2024 4:30 PM [facility] Hemoglobin 8.2(L) 11.7 - 15.7 g/dL 05/22/2024 4:30 PM [facility] Hematocrit 23.4(L) 35.0 - 47.0 % 05/22/2024 4:30 PM [facility] MCV 90 78 - 100 fL 05/22/2024 4:30 PM [facility] MCH 31.7 26.5 - 33.0 pg 05/22/2024 4:30 PM [facility] MCHC 35.0 31.5 - 36.5 g/dL 05/22/2024 4:30 PM [facility] RDW 22.9(H) 10.0 - 15.0 % 05/22/2024 4:30 PM [facility] Platelet Count 552(H) 150 - 450 10e3/uL 05/22/2024 4:30 PM [facility] % Neutrophils 53 % 05/22/2024 4:30 PM [facility] % Lymphocytes 30 % 05/22/2024 4:30 PM [facility] % Monocytes 14 % 05/22/2024 4:30 PM [facility] % Eosinophils 1 % 05/22/2024 4:30 PM [facility] % Basophils 1 % 05/22/2024 4:30 PM [facility] % Immature Granulocytes 1 % 05/22/2024 4:30 PM [facility] NRBCs per 100 WBC 2(H) <1 /100 025 4:30 PM [facility] Absolute Neutrophils 7.7 1.6 - 8.3 10e3/uL 05/22/2024 4:30 PM [facility] Absolute Lymphocytes 4.3 0.8 - 5.3 10e3/uL 05/22/2024 4:30 PM [facility] Absolute Monocytes 2.0(H) 0.0 - 1.3 10e3/uL 05/22/2024 4:30 PM [facility] Absolute Eosinophils 0.1 0.0 - 0.7 10e3/uL 05/22/2024 4:30 PM [facility] Absolute Basophils 0.2 0.0 - 0.2 10e3/uL 05/22/2024 4:30 PM [facility] Absolute Immature Granulocytes 0.2 <=0.4 10e3/uL 05/22/2024 4:30 PM [facility] Absolute NRBCs 0.3 10e3/uL 05/22/2024 4:30 PM [facility] Blood VENOUS LINE / Unknown Venipuncture / Unknown 05/22/2024 3:51 PM ENGINEER AND GEOLOGIST 05/22/2024 3:54 PM [facility] us Bernabe Farley MD LAB - BLOOD ORDERABLES Final Result [facility] [address] [place], [place] [address] * (ABNORMAL) Basic metabolic panel (05/22/2024 3:51 PM ENGINEER AND GEOLOGIST) Sodium 138 135 - 145 mmol/L 05/22/2024 4:12 PM [facility] Potassium 4.8 3.4 - 5.3 mmol/L 05/22/2024 4:12 PM [facility] Chloride 107 98 - 107 mmol/L 05/22/2024 4:12 PM [facility] Carbon Dioxide (CO2) 20(L) 22 - 29 mmol/L 05/22/2024 4:12 PM [facility] Anion Gap 11 7 - 15 mmol/L 05/22/2024 4:12 PM [facility] Urea Nitrogen 9.9 6.0 - 20.0 mg/dL 05/22/2024 4:12 PM [facility] Creatinine 0.91 0.51 - 0.95 mg/dL 05/22/2024 4:12 PM [facility] GFR Estimate 87 >60 mL/min/1.7 3m2 05/22/2024 4:12 PM [facility] Comment:eGFR calculated usin 2020 CKD-EPI equation. Calcium 9.6 8.8 - 10.4 mg/dL 05/22/2024 4:12 PM ENGINEER AND GEOLOGIST [facility] Comment:Reference intervals for this test were updated on 11/09/2023 to reflect our healthy population more accurately. There may be differences in the flagging of prior results with similar values performed with this method. Those prior results can be interpreted in the context of the updated reference intervals. Glucose 100(H) 70 - 99 mg/dL 05/22/2024 4:12 PM ENGINEER AND GEOLOGIST [facility] Blood VENOUS LINE / Unknown Venipuncture / Unknown 05/22/2024 3:51 PM ENGINEER AND GEOLOGIST 05/22/2024 3:54 PM ENGINEER AND GEOLOGIST us Bernabe Farley MD LAB - BLOOD ORDERABLES Final Result Performing Organization Address City/[facility]/ZIP Co de Phone Number [facility] [address] * ECG 12-LEAD WITH MUSE (LHE) (05/22/2024 3:14 PM ENGINEER AND GEOLOGIST) Systolic Blood Pressure mmHg RADIOLOGY RESULTS Diastolic Blood Pressure mmHg RADIOLOGY RESULTS Ventricular Rate 103 BPM RAD IOLOGY RESULTS Atrial Rate 103 BPM RADIOLOG Y RESULTS MO Interval 124 ms RADIOLOG Y RESULTS QRS Duration 80 ms RADIOLO GY RESULTS QT 316 ms RADIOLOGY RESULTS QTc 413 ms RADIOLOGY RESULTS P [place] 82 degrees RADIOLOGY RESULTS R AXIS 90 degrees RADIOLOGY RESULTS T [place] 70 degrees RADIOLOGY RESULTS Interpretation ECG Sinus tachycardia Rightward axis Borderline ECG When compared with ECG of 20-May-2024 07:36, Nonspecific T wave abnormality no longer evident in Anterior leads Confirmed by SEE ED PROVIDER NOTE FOR, ECG INTERPRETATION (4000), technical editor Leticia Warner ([id number]) on 05/22/2024 4:13:58 PM RADIOLOGY RESULTS 05/22/2024 3:14 PM ENGINEER AND GEOLOGIST 05/22/2024 4:13 PM ENGINEER AND GEOLOGIST us Bernabe Farley MD ECG ORDERABLES Edited Result - Final Performing Organization Address City/[facility]/ZIP Co de Phone Number RADIOLOGY RESULTS documented in this encounter Visit Diagnoses Diagnosis 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 documented in this encounter Administered Medications Inactive Administered Medications - up to 3 most recent administrations Medication Order MAR Action Action Date Dose Rate Site diphenhydrAMINE (BENADRYL) capsule 25 mg 25 mg, Oral, ONCE, On Wed05/22/24 at 1600, For 1 dose $Given 05/22/2024 4:00 PM ENGINEER AND GEOLOGIST 25 mg HYDROmorphone (DILAUDID) injection 2 mg 2 mg, Intravenous, EVERY 1 HOUR PRN, severe pain, Starting on Wed05/22/24 at 1537, For 3 doses $Given 05/22/2024 6:39 PM ENGINEER AND GEOLOGIST 2 mg $Given 05/22/2024 5:33 PM ENGINEER AND GEOLOGIST 2 mg $Given 05/22/2024 4:00 PM ENGINEER AND GEOLOGIST 2 mg lactated ringers BOLUS 500 mL Intravenous, 500 mL, ONCE, On Wed05/22/24 at 1600, For 1 dose $New Bag 05/22/2024 4:13 PM ENGINEER AND GEOLOGIST 500 mLs ondansetron (ZOFRAN) injection 4 mg 4 mg, Intravenous, ONCE, Administer over 2-5 Minutes, On Wed05/22/24 at 1600, For 1 dose $Given 05/22/2024 4:00 PM ENGINEER AND GEOLOGIST 4 mg documented in this encounter Active and Recently Administered Medications Times are shown in ENGINEER AND GEOLOGIST. Scheduled Medication Order 05/20/2024 05/21/2024 05/22/2024 diphenhydrAMINE (BENADRYL) capsule 25 mg (COMPLETED) 25 mg, Oral, ONCE, On Wed05/22/24 at 1600, For 1 dose 1600 ($Given - Provi nas: Hattie Lee RN) lactated ringers BOLUS 500 mL (COMPLETED) Intravenous, 500 mL, ONCE, On Wed05/22/24 at 1600, For 1 dose 1613 ($New Bag - Pro vider: Hattie Lee RN)1734 (Stopped - Provider: Carmen Elkins RN) ondansetron (ZOFRAN) injection 4 mg (COMPLETED) 4 mg, Intravenous, ONCE, Administer over 2-5 Minutes, On Wed05/22/24 at 1600, For 1 dose 1600 ($Given - Provi nas: Hattie Lee RN) PRN Medication Order 05/20/2024 05/21/2024 05/22/2024 HYDROmorphone (DILAUDID) injection 2 mg (COMPLETED) 2 mg, Intravenous, EVERY 1 HOUR PRN, severe pain, Starting on Wed05/22/24 at 1537, For 3 doses 1600 ($Given - Provi nas: Hattie Lee RN)1733 ($Given - Provider: Carmen Elkins, SOFIA)1839 ($Given - Provider: Carmen Elkins, SOFIA) documented in this encounter Care Teams Gastrointestinal Technician Relationship Specialty Start Date End Date No Ref-Primary, Physician PCP - General 03/15/24 06/17/24 Elvira Ramseyc Medical Student 04/03/24 Case Samuel MD [address] [place] [address], [address] [place] [address] Assigned Pediatric Specialist Provider 05/18/24 documented as of this encounter
--- OUTSIDE RECORDS SUMMARY | 2024-06-21 22:18 | XMS_ITS | Encounter Summary ---
Author Organization [facility] Address [address] [place] [address]. [place] [address] Care Team Providers Care Operative Supervisor Name Role Phone No Ref-Primary, Physician Primary Care Provider Mor Ramsey Unavailable Unavailable Case Samuel MD Unavailable [phone] Juhi Benson RN Unavailable Unavailable Reason for Visit * Reason Comments Sickle Cell Pain Crisis Encounter Details Date Type Department Care Team (Late st Contact Info) Description 05/28/2024 11:56 PM OPERATIONS AND MAINTENANCE MANAGER - 05/29/2024 3:54 AM OPERATIONS AND MAINTENANCE MANAGER Emergency [facility] Emergency Room [facility] [place] [address] Lenin Smith MD [address] [place] [phone] Sickle cell disease with crisis (H) Discharge [...] in an abandoned building, in an overnight mcc, or couch-surfing.) Yes 04/09/2024 Are you worried [...] on file Legal Sex Female 8:25 AM OPERATIONS AND MAINTENANCE MANAGER Gender Identity Not on file Sexual Orientation Not on file documented as of this encounter Last Filed Vital Signs Vital Sign Reading Time Taken Comments Blood Pressure 123/66 05/29/2024 3:15 AM OPERATIONS AND MAINTENANCE MANAGER Pulse 87 05/29/2024 3:15 AM OPERATIONS AND MAINTENANCE MANAGER Temperature 36.6 C (97.9 F) 05/29/2024 12:01 AM OPERATIONS AND MAINTENANCE MANAGER Respiratory Rate 18 05/29/2024 12:01 AM OPERATIONS AND MAINTENANCE MANAGER Oxygen Saturation 93% 05/29/2024 3:15 AM OPERATIONS AND MAINTENANCE MANAGER Inhaled Oxygen Concentration - - Weight 51.7 kg (114 lb) 05/29/2024 12:01 AM OPERATIONS AND MAINTENANCE MANAGER Height 154.9 cm (5' 1) 05/29/2024 12:01 AM OPERATIONS AND MAINTENANCE MANAGER Body Mass Index 21.54 05/29/2024 12:01 AM OPERATIONS AND MAINTENANCE MANAGER documented in this encounter Discharge Instructions * Attachments The following attachments cannot be sent through Care Everywhere. * Sickle Cell Crisis (Lao) documented in this encounter Medications at Time [...] by mouth daily. 30 tablet 11 05/01/2024 documented as of this encounter ED Notes * Tatiana Rodriguez RN - 05/29/2024 3:54 AM CST Patient discharged after reviewing the AVS. No questions or concerns at this time. Patient comfortable and agrees with plan. ATIONS AND MAINTENANCE MANAGER * Lenin Smith MD - 05/29/2024 12:17 AM CST EMERGENCY DEPARTMENT ENCOUNTER NAME: Gianna Hernández AGE: [age] year old female DATE OF : 1995 EVALUATION DATE & TIME: 05/28/2024 11:56 PM PCP: No Ref-Primary, Physician ED PROVIDER: Lenin Smith M.D. Chief Complaint Patient presents with Sickle Cell Pain Crisis FINAL IMPRESSION: 1. Sickle cell disease with crisis (H) ED COURSE & MEDICAL DECISION MAKING: Pertinent Labs & Imaging studies reviewed. (See chart for details) 29 year old female presents to the Emergency Department for evaluation of body pain. Patient has history of sickle cell. This seems to be her typical sickle cell crisis. No chest pain at this time. Did access her port. Given fluids in addition to 3 doses of 2 mg of IV Dilaudid per care plan. Feeling better after this. Patient's hemoglobin is 6.7 and has been trending down. Reticulocyte count is elevated. She is feeling well enough to go home. Has an appointment with her beam builder helper today. Willfollow-up then. No indication for transfusion at this time. 12:05 AM I met with the patient to gather history and to perform my initial exam. I discussed the plan for care while in the Emergency Department. At the conclusion of the encounter I discussed the results of all of the tests and the disposition.The questions were answered. The patient or family acknowledged understanding and was agreeable with the care plan. Medical Decision Making Obtained supplemental history:Supplemental history obtained?: No Reviewed external records: External records reviewed?: Documented in chart Care impacted by chronic illness:Other: Sickle cell Did you consider but not order tests?: Work up considered but not performed and documented in chart, if applicable Did you interpret images independently?: Independent interpretation of ECG and images noted in documentation, when applicable. Consultation discussion with other provider:Did you involve another provider (finance consultant, , pharmacy, etc.)?: No Discharge. No recommendations on prescription strength medication(s). See documentation for any additional details. MIPS: Not Applicable MEDICATIONS GIVEN IN THE EMERGENCY: Medications sodium chloride (PF) 0.9% PF flush 10-20 mL (10 mLs Intracatheter $Given 05/29/24 033) sodium chloride (PF) 0.9% PF flush 10-20 mL (has no administration in time range) sodium chloride (PF) 0.9% PF flush 10-20 mL ( Intracatheter Not Given 05/29/24 0147) heparin lock flush 10 unit/mL injection 5-10 mL (has no administration in time range) heparin lock flush 10 unit/mL injection 5-10 mL ( Intracatheter Not Given 05/29/24 0147) heparin lock flush 100 unit/mL injection 5-10 mL (5 mLs Intracatheter $Given 05/29/24 0338) lactated ringers BOLUS 1,000 mL (0 mLs Intravenous Stopped 05/29/24 0300) HYDROmorphone (DILAUDID) injection 2 mg (2 mg Intravenous $Given 05/29/24 0337) diphenhydrAMINE (BENADRYL) injection 25 mg (25 mg Intravenous $Given 05/29/24 0126) NEW PRESCRIPTIONS STARTED AT TODAY'S ER VISIT Discharge Medication List as of 05/29/2024 3:47 AM HPI Patient information was obtained from: Patient Use of Grain Unloader: N/A Gianna Hernández is a 29 year old female with a pertinent history of sickle cell pain crisis, history of transfusion, gallstones, 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 Patient came to the ED after having sweats and all over pain. Patient has known history of sickle cell disease and frequent visits for sickle cell pain crisis. Today was her daughters second birthdayand they walked around the [facility], patient believes she might have over exerted herself. She endorses sweats and a slight cough. Patient has two chest ports. She has been taking her 4 mg dilaudid every 4-6 hours. Patient denies fever or chest pain. Per Chart Review: 05/05/24-05/27/24 multiple visits to the ED for sickle cell pain crisis. Patient usually presents with whole body pains and is discharged home in stable condition. 05/25 Admission to [facility] for bilateral port placements with apheresis port on right and smart port on left. 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 [...] & ADENOIDECTOMY Bilateral CURRENT MEDICATIONS: Current Facility-Administered Medications Medication Dose Route Frequency Provider Last Rate Last Admin heparin lock flush 10 unit/mL injection 5-10 mL 5-10 mL Intracatheter Q1H PRN Lenin Smith MD heparin lock flush 10 unit/mL injection 5-10 mL 5-10 mL Intracatheter Q24H Lenin Smith MD heparin lock flush 100 unit/mL injection 5-10 mL 5-10 mL Intracatheter Q28 Days Lenin Smith MD 5 mL at 05/29/24 0338 sodium chloride (PF) 0.9% PF flush 10-20 mL 10-20 mL Intracatheter q1 min prn Lenin Smith MD10 mL at 05/29/24 0337 sodium chloride (PF) 0.9% PF flush 10-20 mL 10-20 mL Intracatheter Q1H PRN Lenin Smith MD sodium chloride (PF) 0.9% PF flush 10-20 mL 10-20 mL Intracatheter Q28 Days Lenin Smith MD Current Outpatient Medications Medication Sig Dispense [...] Socioeconomic History Marital status: Single Spouse name: None Number of children: None Years of education: None Highest education level: None Tobacco Use Smoking status: Never Smokeless tobacco: Never Substance and Sexual Activity Alcohol use: Not Currently Drug use: Never Social History Narrative Unve-de-lssj mom. Recently moved to [place] from [place], [place]. She is 1 of 9 [...] Social Connections: Socially Integrated (03/28/2024) Received from [facility] [employer] [facility] Social Connections Do you often feel lonely [...] about losing your housing?: No VITALS: BP 123/66 Pulse 87 Temp 97.9 ??F (36.6 ??C) (Oral) Resp 18 Ht 1.549 m (5' 1) Wt 51.7 kg (114 lb) SpO2 93% BMI 21.54 kg/m?? PHYSICAL EXAM Physical Exam Vitals and nursing note reviewed. Constitutional: General: She is not in acute distress. Appearance: She is not diaphoretic. HENT: Head: Atraumatic. Mouth/Throat: Pharynx: No oropharyngeal exudate. Eyes: General: No scleral icterus. Pupils: Pupils are equal, round, and reactive to light. Cardiovascular: Rate and Rhythm: Normal rate and regular rhythm. Heart sounds: Normal heart sounds. Pulmonary: Effort: No respiratory distress. Breath sounds: Normal breath sounds. Abdominal: Palpations: Abdomen is soft. Tenderness: There is no abdominal tenderness. There is no guarding or rebound. Negative signs include Mason's sign. Musculoskeletal: General: No tenderness. Skin: General: Skin is warm. Findings: No rash. Neurological: General: No focal deficit present. Mental Status: She is alert. LAB: All pertinent labs reviewed and interpreted. Labs Ordered and Resulted from Time of ED Arrival to Time of ED Departure RETICULOCYTE COUNT - Abnormal Result Value % Reticulocyte 28.6 (*) Absolute Reticulocyte 0.616 (*) CBC WITH PLATELETS AND DIFFERENTIAL - Abnormal WBC Count 15.6 (*) RBC Count 2.09 (*) Hemoglobin 6.7 (*) Hematocrit 19.2 (*) MCV 92 MCH 32.1 MCHC 34.9 RDW 23.0 (*) Platelet Count 405 MANUAL DIFFERENTIAL - Abnormal % Neutrophils 54 % Lymphocytes 34 % Monocytes 10 % Eosinophils 1 % Basophils 1 Absolute Neutrophils 8.4 (*) Absolute Lymphocytes 5.3 Absolute Monocytes 1.6 (*) Absolute Eosinophils 0.2 Absolute Basophils 0.2 NRBCs per 100 WBC 3 Absolute NRBCs 0.5 RBC Morphology Confirmed RBC Indices Platelet Assessment Value: Automated Count Confirmed. Platelet morphology is normal. Polychromasia Moderate (*) Sickle Cells Moderate (*) RADIOLOGY: Reviewed all pertinent imaging. Please see official radiology report. No orders to display I, Gisele Brandt, am serving as a scribe to document services personally performed by Dr. Joyce, based on my observation and the provider's statements to me. I, Lenin Smith MD attest that Gisele Brandt is acting in a scribe capacity, has observed my performance of the services and has documented them in accordance with my direction. Lenin Smith M.D. Emergency Medicine [facility] EMERGENCY ROOM [facility] [facility] [id number] Dept: [phone] Lenin Smith MD 05/29/24 0412 ATIONS AND MAINTENANCE MANAGER * Moy Stewart RN - 05/29/2024 12:02 AM CST To ED per POV C/o being in sickle cell crisis. C/o generalized whole body pain rated 9/10. Took last 4mg dilaudidpo at 2100 without relief Recently had 2 ports placed and is requesting one be accessed. Triage Assessment (Adult) Row Name 05/29/24 0002 Triage Assessment Airway WDL WDL Respiratory WDL Respiratory WDL WDL Skin Circulation/Temperature WDL Skin Circulation/Temperature WDL WDL Cardiac WDL Cardiac WDL X;rhythm Pulse Rate & Regularity tachycardic Peripheral/Neurovascular WDL Peripheral Neurovascular WDL WDL Cognitive/Neuro/Behavioral WDL Cognitive/Neuro/Behavioral WDL WDL ATIONS AND MAINTENANCE MANAGER documented in this encounter Plan of Treatment Not on file documented as of this encounter Goals Goal Patient Goal Type Associated Problems Recent Progress Patient-Stated? Author Pain Management General On track( 025 12:40 PM OPERATIONS AND MAINTENANCE MANAGER) Yes Juhi Benson, SOFIA Note: Goal Statement: [...] Procedure Name Priority Date/Time Associated Diagnosis Comments MANUAL DIFFERENTIAL STAT 05/29/2024 1 2:53 AM OPERATIONS AND MAINTENANCE MANAGER CBC WITH PLATELETS AND DIFFERENTIAL STAT 05/29/2024 12:53 AM OPERATIONS AND MAINTENANCE MANAGER CBC WITH PLATELETS & DIFFERENTIAL STAT 05/29/2024 12:53 AM OPERATIONS AND MAINTENANCE MANAGER RETICULOCYTE COUNT STAT 05/29/2024 12 :53 AM OPERATIONS AND MAINTENANCE MANAGER documented in this encounter Results * (ABNORMAL) Manual Differential (05/29/2024 12:53 AM OPERATIONS AND MAINTENANCE MANAGER) % Neutrophils 54 % JARET 05/29/2024 1:58 AM OPERATIONS AND MAINTENANCE MANAGER [facility] % Lymphocytes 34 % JARET 05/29/2024 1:58 AM OPERATIONS AND MAINTENANCE MANAGER [facility] % Monocytes 10 % JARET 05/29/2024 1:58 AM OPERATIONS AND MAINTENANCE MANAGER [facility] % Eosinophils 1 % JARET 05/29/2024 1:58 AM [facility] % Basophils 1 % JARET 05/29/2024 1:58 AM [facility] Absolute Neutrophils 8.4(H) 1.6 - 8.3 10e3/uL JARET 05/29/2024 1:58 AM [facility] Absolute Lymphocytes 5.3 0.8 - 5.3 10e3/uL JARET 05/29/2024 1:58 AM [facility] Absolute Monocytes 1.6(H) 0.0 - 1.3 10e3/uL JARET 05/29/2024 1:58 AM [facility] Absolute Eosinophils 0.2 0.0 - 0.7 10e3/uL JARET 05/29/2024 1:58 AM [facility] Absolute Basophils 0.2 0.0 - 0.2 10e3/uL JARET 05/29/2024 1:58 AM [facility] NRBCs per 100 WBC 3 % JARET 05/29/2024 1:58 AM [facility] Absolute NRBCs 0.5 10e3/uL JARET 05/29/2024 1:58 AM [facility] RBC Morphology Confirmed RBC Indices JARET 05/29/2024 1:58 AM [facility] Platelet Assessment Automated Count Confirmed. Platelet morphology is normal. Automated Count Confirmed. Platelet morphology is normal. [facility] 05/29/2024 1:58 AM [facility] Polychromasia Moderate(A) None Seen JARET 05/29/2024 1:58 AM [facility] Sickle Cells Moderate(A) None Seen [facility] 05/29/2024 1:58 AM [facility] Blood VENOUS LINE / Unknown Venipuncture / Unknown 05/29/2024 12:53 AM [facility] 05/29/2024 12:58 AM [facility] us Lenin Smith MD LAB - BLOOD ORDERABLES Final Result [facility] [address] [place] [address], [facility] * (ABNORMAL) CBC with platelets and differential (05/29/2024 12:53 AM [facility]) [facility] WBC Count 15.6(H) 4.0 - 11.0 10e3/uL 05/29/2024 1:58 AM [facility] RBC Count 2.09(L) 3.80 - 5.20 10e6/uL 05/29/2024 1:58 AM [facility] Hemoglobin 6.7(LL) 11.7 - 15.7 g/dL 05/29/2024 1:58 AM [facility] Hematocrit 19.2(L) 35.0 - 47.0 % 05/29/2024 1:58 AM [facility] MCV 92 78 - 100 fL 05/29/2024 1:58 AM [facility] MCH 32.1 26.5 - 33.0 pg 05/29/2024 1:58 AM [facility] MCHC 34.9 31.5 - 36.5 g/dL 05/29/2024 1:58 AM [facility] RDW 23.0(H) 10.0 - 15.0 % 05/29/2024 1:58 AM [facility] Platelet Count 405 150 - 450 10e3/uL 05/29/2024 1:58 AM [facility] Blood VENOUS LINE / Unknown Venipuncture / Unknown 05/29/2024 12:53 AM OPERATIONS AND MAINTENANCE MANAGER 05/29/2024 12:58 AM [facility] Lenin Smith MD LAB - BLOOD ORDERABLES Final Result [facility] [address] [place] [address], [facility] * (ABNORMAL) Reticulocyte count (05/29/2024 12:53 AM OPERATIONS AND MAINTENANCE MANAGER) [facility] % Reticulocyte 28.6(H) 0.5 - 2.0 % 05/29/2024 1:27 AM [facility] Absolute Reticulocyte 0.616(H) 0.025 - 0.095 10e6/uL 05/29/2024 1:27 AM [facility] Blood VENOUS LINE / Unknown Venipuncture / Unknown 05/29/2024 12:53 AM OPERATIONS AND MAINTENANCE MANAGER 05/29/2024 12:58 AM OPERATIONS AND MAINTENANCE MANAGER us Lenin Smith MD LAB - BLOOD ORDERABLES Final Result [facility] [address] [place] [address], [facility] documented in this encounter Visit Diagnoses Diagnosis Sickle cell disease with crisis (H) Hb-SS disease with crisis documented in this encounter Administered Medications Inactive Administered Medications - up to 3 most recent administrations Medication Order MAR Action Action Date Dose Rate Site diphenhydrAMINE (BENADRYL) injection 25 mg 25 mg, Intravenous, ONCE, On Wed05/29/24 at 0130, For 1 dose $Given 05/29/2024 1:26 AM OPERATIONS AND MAINTENANCE MANAGER 25 mg heparin lock flush 10 unit/mL injection 5-10 mL 5-10 mL, Intracatheter, EVERY 1 HOUR PRN, post meds or blood draw, other, to lock each port in dual implanted port, Starting on Wed05/29/24 at 0009, Flush each port lumen with the sodium chloride 0.9% flush followed by the heparin flush. MAX dose: 5 mL of heparin for each lumen heparin lock flush 10 unit/mL injection 5-10 mL 5-10 mL, Intracatheter, EVERY 24 HOURS, First dose on Wed05/29/24 at 0030, To lock each dormant port [...] Intracatheter, EVERY 28 DAYS, First dose on Wed05/29/24 at 0030, To de-access each port in dual implanted port. Flush with 10 mL NS sodium chloride 0.9% flush followed by 5 mL heparin (100 units/mL) at discharge and at least every 28 days. MAX: 5 mL per each port lumen $Given 05/29/2024 3:38 AM OPERATIONS AND MAINTENANCE MANAGER 5 mLs HYDROmorphone (DILAUDID) injection 2 mg 2 mg, Intravenous, EVERY 1 HOUR PRN, severe pain, moderate pain, Starting on Wed05/29/24 at 0010, For 3 doses $Given 05/29/2024 3:37 AM OPERATIONS AND MAINTENANCE MANAGER 2 mg $Given 05/29/2024 2:37 AM OPERATIONS AND MAINTENANCE MANAGER 2 mg $Given 05/29/2024 1:19 AM OPERATIONS AND MAINTENANCE MANAGER 2 mg lactated ringers BOLUS 1,000 mL Intravenous, 1,000 mL, ONCE, at 1,000 mL/hr, Administer over 1 Hours, On Wed05/29/24 at 0030, For 1 dose $New Bag 05/29/2024 1:01 AM OPERATIONS AND MAINTENANCE MANAGER 1,000 mLs 1000 mL/hr sodium chloride (PF) 0.9% PF flush 10-20 mL 10-20 mL, Intracatheter, EVERY 1 MIN PRN, line flush, post meds or blood draw, to flush each lumen of the CVC Implanted port, Starting on Wed05/29/24 at 0008, 10 mL per port lumen post IV meds; 20 mL per port lumen post post blood draw. $Given 05/29/2024 3:37 AM OPERATIONS AND MAINTENANCE MANAGER 10 mLs sodium chloride (PF) 0.9% PF flush 10-20 mL 10-20 mL, Intracatheter, EVERY 1 HOUR PRN, other, to de-access port when not in use, Starting on Wed05/29/24 at 0008, Use sodium chloride 0.9% at least daily to de-access each port and lock dormant implanted port while not in use. Flush each port access with 10 mL sodium chloride 0.9% MAX: 10 mL per each port lumen sodium chloride (PF) 0.9% PF flush 10-20 mL 10-20 mL, Intracatheter, EVERY 28 DAYS, First dose on Wed05/29/24 at 0030, To flush and lock each port in dual implanted port. Flush each port with 10 mL sodium chloride 0.9% followed by either heparin or anticoagulant citrate as ordered. Max: 10 mL per each port lumen. documented in this encounter Active and Recently Administered Medications Times are shown in OPERATIONS AND MAINTENANCE MANAGER. Scheduled Medication Order 05/27/2024 05/28/2024 05/29/2024 diphenhydrAMINE (BENADRYL) injection 25 mg (COMPLETED) 25 mg, Intravenous, ONCE, On Wed05/29/24 at 0130, For 1 dose 0126 ($Given - Provi nas: Tatiana Rodriguez RN) heparin lock flush 10 unit/mL injection 5-10 mL 5-10 mL, Intracatheter, EVERY 24 HOURS, First dose on Wed05/29/24 at 0030, To lock each dormant port in dual implanted port. MAX: 5 mL of heparin for each lumen Check PRN heparin flush order to see when the last dose of the PRN heparin was given before administering this heparin dose. Flush with sodium chloride 0.9% followed by the heparin flush. 0147 (Not Given - Pr ovider: Tatiana Rodriguez RN - Reason: IV Infusing) heparin lock flush 100 unit/mL injection 5-10 mL 5-10 mL, Intracatheter, EVERY 28 DAYS, First dose on Wed05/29/24 at 0030, To de-access each port in dual implanted port. Flush with 10 mL NS sodium chloride 0.9% flush followed by 5 mL heparin (100 units/mL) at discharge and at least every 28 days. MAX: 5 mL per each port lumen 0338 ($Given - Provi nas: Tatiana Rodriguez RN) lactated ringers BOLUS 1,000 mL (COMPLETED) Intravenous, 1,000 mL, ONCE, at 1,000 mL/hr, Administer over 1 Hours, On Wed05/29/24 at 0030, For 1 dose 0101 ($New Bag - Pro vider: Guille Payan RN)0300 (Stopped - Provider: Tatiana Rodriguez RN) sodium chloride (PF) 0.9% PF flush 10-20 mL 10-20 mL, Intracatheter, EVERY 28 DAYS, First dose on Wed05/29/24 at 0030, To flush and lock each port in dual implanted port. Flush each port with 10 mL sodium chloride 0.9% followed by either heparin or anticoagulant citrate as ordered. Max: 10 mL per each port lumen. 0147 (Not Given - Pr ovider: Tatiana Rodriguez RN - Reason: IV Infusing) PRN Medication Order 05/27/2024 05/28/2024 05/29/2024 heparin lock flush 10 unit/mL injection 5-10 mL 5-10 mL, Intracatheter, EVERY 1 HOUR PRN, post meds or blood draw, other, to lock each port in dual implanted port, Starting on Wed05/29/24 at 0009, Flush each port lumen with the sodium chloride 0.9% flush followed by the heparin flush. MAX dose: 5 mL of heparin for each lumen HYDROmorphone (DILAUDID) injection 2 mg (COMPLETED) 2 mg, Intravenous, EVERY 1 HOUR PRN, severe pain, moderate pain, Starting on Wed05/29/24 at 0010, For 3 doses 0119 ($Given - Provi nas: Tatiana Rodriguez RN)0237 ($Given - Provider: Tatiana Rodriguez RN)0337 ($Given - Provider: Tatiana Rodriguez RN) sodium chloride (PF) 0.9% PF flush 10-20 mL 10-20 mL, Intracatheter, EVERY 1 MIN PRN, line flush, post meds or blood draw, to flush each lumen of the CVC Implanted port, Starting on Wed05/29/24 at 0008, 10 mL per port lumen post IV meds; 20 mL per port lumen post post blood draw. 0337 ($Given - Provi nas: Tatiana Rodriguez RN) sodium chloride (PF) 0.9% PF flush 10-20 mL 10-20 mL, Intracatheter, EVERY 1 HOUR PRN, other, to de-access port when not in use, Starting on Wed05/29/24 at 0008, Use sodium chloride 0.9% at least daily to de-access each port and lock dormant implanted port while not in use. Flush each port access with 10 mL sodium chloride 0.9% MAX: 10 mL per each port lumen documented in this encounter Care Teams Operative Supervisor Relationship Specialty Start Date End Date No Ref-Primary, Physician PCP - General 03/15/24 06/17/24 Mor Ramsey Medical Student 04/03/24 Case Samuel MD [address] [place] [address], [address] [place] [address] Assigned Pediatric Specialist Provider 05/18/24 Juhi Benson, RN Specialty Customer Service Technician Hematology & Oncology 05/29/24 documented as of this encounter
--- OUTSIDE RECORDS SUMMARY | 2024-06-21 22:18 | XMS_ITS | Encounter Summary ---
Author Organization [facility] Address [address] [place] [address]. [place] [address] Care Team Providers Care Biomedical Scientist Name Role Phone No Ref-Primary, Physician Primary Care Provider Mor Ramsey Unavailable Unavailable Case Samuel MD Unavailable [phone] Reason for Visit * Reason Comments Chest Pain Encounter Details Date Type Department Care Team (Late st Contact Info) Description 05/27/2024 11:58 AM EXPERIENTIAL THERAPIST - 05/27/2024 6:07 PM [facility] Emergency Room [facility] [place] [phone] Blas Mcclellan MD [address] [place] [id number] Marly Gross, DO [facility] [address] [place] [id number] Sickle cell disease with crisis (H) Discharge [...] on file Legal Sex Female 8:25 AM EXPERIENTIAL THERAPIST Gender Identity Not on file Sexual Orientation Not on file documented as of this encounter Last Filed Vital Signs Vital Sign Reading Time Taken Comments Blood Pressure 123/76 05/27/2024 5:15 PM EXPERIENTIAL THERAPIST Pulse 97 05/27/2024 5:15 PM EXPERIENTIAL THERAPIST Temperature 36.9 C (98.5 F) 05/27/2024 11:57 AM EXPERIENTIAL THERAPIST Respiratory Rate 24 05/27/2024 5:37 PM EXPERIENTIAL THERAPIST Oxygen Saturation 96% 05/27/2024 5:15 PM EXPERIENTIAL THERAPIST Inhaled Oxygen Concentration - - Weight 51.7 kg (114 lb) 05/27/2024 11:56 AM EXPERIENTIAL THERAPIST Height 154.9 cm (5' 1) 05/27/2024 11:56 AM EXPERIENTIAL THERAPIST Body Mass Index 21.54 05/27/2024 11:56 AM EXPERIENTIAL THERAPIST documented in this encounter Discharge Instructions * Attachments The following attachments cannot be sent through Care Everywhere. * Sickle Cell Crisis ([place]) documented in this encounter Medications at Time [...] as of this encounter ED Notes * Marly Gross, - 05/27/2024 3:15 PM CST EMERGENCY DEPARTMENT SIGN OUT NOTE ED COURSE AND MEDICAL DECISION MAKING Patient was signed out to me by Dr Blas Mcclellan at 1515 In brief, Gianna Hernández is a 29 year old female who initially presented with chest pain. She has a history of sickle cell disease. At time of sign out, disposition was pending pain control and disposition. Labs with reticulocyte count of 28%, similar to 4 days ago. Absolute retics 0.619. Hemoglobin 7.1. [facility] Additional [facility] Course Timeline: 5:01 PM I introduced myself to the patient. She would like her last dose of dilaudid per care plan and is comfortable with being discharged home afterwards. She has follow up with her Spin Table Operator in2 days which I encouraged her to keep. FINAL IMPRESSION 1. Sickle cell disease with crisis (H) ED MEDS Medications HYDROmorphone (DILAUDID) injection 2 mg (2 mg Intravenous $Given 05/27/24 1443) lactated ringers BOLUS 1,000 mL (0 mLs Intravenous Stopped 05/27/24 1634) ondansetron (ZOFRAN) injection 8 mg (8 mg Intravenous $Given 05/27/24 1440) HYDROmorphone (DILAUDID) injection 2 mg (2 mg Intravenous $Given 05/27/24 1637) diphenhydrAMINE (BENADRYL) injection 25 mg (25 mg Intravenous $Given 05/27/24 1634) HYDROmorphone (DILAUDID) injection 2 mg (2 mg Intravenous $Given 05/27/24 1709) LAB Labs Ordered and Resulted from Time of ED Arrival to Time of ED Departure COMPREHENSIVE METABOLIC PANEL - Abnormal Result Value Sodium 136 Potassium 4.8 Carbon Dioxide (CO2) 18 (*) Anion Gap 12 Urea Nitrogen 8.4 Creatinine 0.67 GFR Estimate >90 Calcium 9.3 Chloride 106 Glucose 97 Alkaline Phosphatase 94 AST 51 (*) ALT 19 Protein Total 7.7 Albumin 4.4 Bilirubin Total 2.7 (*) RETICULOCYTE COUNT - Abnormal % Reticulocyte 28.0 (*) Absolute Reticulocyte 0.619 (*) CBC WITH PLATELETS AND DIFFERENTIAL - Abnormal WBC Count 15.7 (*) RBC Count 2.21 (*) Hemoglobin 7.1 (*) Hematocrit 20.2 (*) MCV 91 MCH 32.1 MCHC 35.1 RDW 23.0 (*) Platelet Count 429 MANUAL DIFFERENTIAL - Abnormal % Neutrophils 71 % Lymphocytes 20 % Monocytes 9 % Eosinophils 0 % Basophils 0 Absolute Neutrophils 11.1 (*) Absolute Lymphocytes 3.1 Absolute Monocytes 1.4 (*) Absolute Eosinophils 0.0 Absolute Basophils 0.0 RBC Morphology Confirmed RBC Indices Platelet Assessment Value: Automated Count Confirmed. Platelet morphology is normal. Acanthocytes Slight (*) Elliptocytes Slight (*) RBC Fragments Slight (*) Polychromasia Slight (*) Sickle Cells Moderate (*) Target Cells Slight (*) RADIOLOGY Chest XR, PA & LAT Final Result IMPRESSION: New right and left chest ports, with catheter tips at the superior cavoatrial junction.Unchanged patchy opacities in the right greater mid to lower lungs. No consolidation or pleural effusion. Stable mediastinal silhouette. DISCHARGE MEDS New Prescriptions No medications on file Marly Gross DO Emergency Medicine [facility] EMERGENCY ROOM [address] [facility] [phone] Marly Gross DO 05/27/24 [id number] RIENTIAL THERAPIST * Blas Mcclellan MD - 05/27/2024 12:32 PM CST EMERGENCY DEPARTMENT ENCOUNTER NAME: Gianna Hernández AGE: [age] year old female DATE OF : 1995 EVALUATION DATE & TIME: 05/27/2024 11:58 AM PCP: No Ref-Primary, Physician ED PROVIDER: Blas Mcclellan M.D. Chief Complaint Patient presents with Chest Pain FINAL IMPRESSION: 1. Sickle cell disease with crisis (H) ED COURSE & MEDICAL DECISION MAKING: Pertinent Labs & Imaging studies reviewed. (See chart for details) 29 year old female presents to the Emergency Department for evaluation of chest pain. Patient has ahistory of sickle cell disease and I felt this likely was sickle cell pain and not a full-blown crisis. Blood work up to the point of signout shows normal metabolic panel with a slightly elevated bilirubin but this is around her baseline recently. Awaiting retake count and hemoglobin. Chest x- ray was done because the patient recently had 2 ports placed. No pneumothorax or hemothorax. No pneumonia. No evidence of acute chest. We followed the patient's pain plan and will continue until he had some symptom improvement consider admission as needed. 12:27 PM I met with the patient, obtained history, performed an initial exam, and discussed optionsand plan for diagnostics and treatment here in the ED. 3:05 PM Signed out to Dr. Jefferson Gross pending pain control and dispo At the conclusion of the encounter I discussed the results of all of the tests and the disposition.The questions were answered. The patient or family acknowledged understanding and was agreeable with the care plan. ED Course as of 05/27/24 1505 Sat May 27, 2024 1236 Patient with known sickle cell anemia. Seems to represent clearly a sickle cell crisis. Because she just had ports placed we will do a chest x-ray just to evaluate. Will follow her care plan with some Dilaudid fluids and Zofran. Will also send blood work to screen. 1500 Chest x-ray is reassuring and the ports appear in place. No evidence of pneumothorax hemothorax or any other pulmonary issue. Patient signed out to Dr. Solis pending blood work and improved symptoms. 1504 Patient receiving second half of her first dose of Dilaudid. Still feeling some pain. Medical Decision Making Obtained supplemental history:Supplemental history obtained?: No Reviewed external records: External records reviewed?: Documented in chart and Outpatient Record: [facility] ED 05/23/2024 and [facility] visit 05/25/2024 Care impacted by chronic illness:Documented in Chart Did you consider but not order tests?: Work up considered but not performed and documented in chart, if applicable Did you interpret images independently?: Independent interpretation of ECG and images noted in documentation, when applicable. Consultation discussion with other provider:Did you involve another provider (security consultant, , pharmacy, etc.)?: No Admission considered. Patient was signed out to the oncoming physician, disposition pending. MIPS: Not Applicable This patient involved a high degree of complexity in medical decision making, as significant risks were present and assessed. Recent encounters & results in medical record reviewed by me. All workup (i.e. any EKG/labs/imaging as per charting below) reviewed and independently interpretedby me. See respective sections for details. 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 Per chart review, patient was seen by oncology at [facility] on 05/01/2024 for new outpatient hematology visit for initiation of care for sickle cell disease. [facility] [place] [place] [facility] [place]. 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 Patient had been managing her pain with Dilaudid prescribed by a PCP. Plan for follow-up with hematology in 1 month. Per chart review, patient has been seen in the ED over 40 times in the last several months, most recently on 05/23/2024. Patient presented after experiencing left lower chest pain. Patient reported that she contacted her oncology/hematology group, who informed her they could not make any changes to h er pain control until after she got her port placed on 05/25/2024, with follow-up scheduled 05/29/2024. Patient had been using Dilaudid at home. Per chart review, patient had 2 ports placed on 05/25/2024 at [facility]. Apheresis on the right, 6 sami smart port on the left. Patient tolerated the procedure well and was discharged with instructions to follow-up with oncology on 05/29/2024. The patient reports that since she had her ports placed on (05/25/2024, 2 days ago), she has been experiencing chest pain and left-sided rib pain that feels like her typical sickle cell pain.She endorses pain with deep breaths and sweats that soaked her sheets, which she has also experienced with previous sickle cell episodes. Patient has previously had ports placed (prior to 2 days ago)and says that her pain today feels more like pain associated with her sickle cell than from her kylie placement. Denies shortness of breath, fever, or any other concerns at this time. Patient says that she doesn't feel like she is in full sickle cell crisis. REVIEW OF SYSTEMS Please refer to HPI. PAST MEDICAL HISTORY: Past Medical History: [...] 105/25/2024 TONSILLECTOMY & ADENOIDECTOMY Bilateral CURRENT MEDICATIONS: folic [...] Currently Drug use: Never Social History Narrative [id number] mom. Recently moved to [place] from [place], [place]. She is 1 of 9 [...] Social Connections: Socially Integrated (03/28/2024) [facility] Do you often feel [...] about losing your housing?: No VITALS: BP 120/65 Pulse 104 Temp 98.5 ??F (36.9 ??C) Resp 19 Ht 1.549 m (5' 1) Wt 51.7 kg (114 lb) SpO2 96% BMI 21.54 kg/m?? PHYSICAL EXAM Constitutional: Well developed, Well nourished, NAD, GCS 15 HENT: Normocephalic, Atraumatic, Bilateral external ears normal, Oropharynx normal, mucous membranes moist, Nose normal. Neck- Normal range of motion, No tenderness, Supple, No stridor. Eyes: PERRL, EOMI, Conjunctiva normal, No discharge. Respiratory: Normal breath sounds, No respiratory distress, No wheezing, Speaks full sentences easily. No cough. Cardiovascular: Normal heart rate, Regular rhythm, No murmurs, No rubs, No gallops. Chest wall nontender. GI: Soft, No tenderness, No masses, No flank tenderness. No rebound or guarding. Musculoskeletal: 2+ DP pulses. No edema.No cyanosis, No clubbing. Good range of motion in all majorjoints. No tenderness to palpation or major deformities noted. Integument: Warm, Dry, No rash. No petechiae. Bilateral healing incisions at ports to bilateral upper lateral chest, No fluctuance, Nontender, No erythema. Neurologic: Alert & oriented x 3, CN 3-12 intact Normal motor function, Normal sensory function, No focal deficits noted. Normal gait. Normal finger to nose bilaterally Psychiatric: Affect normal, Judgment normal, Mood normal. Cooperative. LAB: All pertinent labs reviewed and interpreted. Labs Ordered and Resulted from Time of ED Arrival to Time of ED Departure COMPREHENSIVE METABOLIC PANEL - Abnormal Result Value Sodium 136 Potassium 4.8 Carbon Dioxide (CO2) 18 (*) Anion Gap 12 Urea Nitrogen 8.4 Creatinine 0.67 GFR Estimate >90 Calcium 9.3 Chloride 106 Glucose 97 Alkaline Phosphatase 94 AST 51 (*) ALT 19 Protein Total 7.7 Albumin 4.4 Bilirubin Total 2.7 (*) RETICULOCYTE COUNT CBC WITH PLATELETS AND DIFFERENTIAL RADIOLOGY: Reviewed all pertinent imaging. Please see official radiology report. Chest XR, PA & LAT (Results Pending) EKG: Performed at: 12:12 27-May-2024 Impression: Sinus rhythm. Nonspecific T wave abnormality in inferior and anterior leads. When compared with ECG of 23-May-2024 18:54, no significant change was found. Rate: 91 bpm Rhythm: Sinus [place]: 39 62 23 NC Interval: 142 ms QRS Interval: 80 ms QTc Interval: 352/[address] Changes: None Comparison: When compared with ECG of 23-May-2024 18:54, no significant change was found. I have independently reviewed and interpreted the EKG(s) documented above. PROCEDURES: I, Kathy Piña, am serving as a scribe to document services personally performed by Dr. Leonard based on my observation and the provider's statements to me. I, Blas Mcclellan MD attest thatKathy Piña is acting in a scribe capacity, has observed my performance of the services and hasdocumented them in accordance with my direction. Blas Mcclellan M.D. Emergency Medicine [facility] EMERGENCY ROOM [address] [place] [phone] Dept: [phone] Blas Mcclellan MD 05/27/24 1507 RIENTIAL THERAPIST * Yanely Avendano RN - 05/27/2024 12:02 PM CST Pt here with her typical sickle cell chest pain. Had two new ports placed on . Dilaudid at home around 0900 Triage Assessment (Adult) Row Name 05/27/24 1156 Triage Assessment Airway WDL WDL Respiratory WDL Respiratory WDL WDL Skin Circulation/Temperature WDL Skin Circulation/Temperature WDL WDL Cardiac WDL Cardiac WDL chest pain Chest Pain Assessment Chest Pain Location anterior chest, left Peripheral/Neurovascular WDL Peripheral Neurovascular WDL WDL Cognitive/Neuro/Behavioral WDL Cognitive/Neuro/Behavioral WDL WDL RIENTIAL THERAPIST documented in this encounter Plan of Treatment Not on file documented as of this encounter Goals Goal Patient Goal Type Associated Problems Recent Progress Patient-Stated? Author Pain Management General On track( 025 12:40 PM EXPERIENTIAL THERAPIST) Yes Juhi Benson, RN Note: Goal Statement: [...] Date/Time Associated Diagnosis Comments MANUAL DIFFERENTIAL STAT 05/27/2024 3 :13 PM EXPERIENTIAL THERAPIST CBC WITH PLATELETS AND DIFFERENTIAL STAT 05/27/2024 3:13 PM EXPERIENTIAL THERAPIST CBC WITH PLATELETS & DIFFERENTIAL STAT 05/27/2024 3:13 PM EXPERIENTIAL THERAPIST RETICULOCYTE COUNT STAT 05/27/2024 3: 13 PM EXPERIENTIAL THERAPIST XR CHEST 2 VIEWS STAT 05/27/2024 2:57 PM EXPERIENTIAL THERAPIST COMPREHENSIVE METABOLIC PANEL STAT 05/27/2024 2:30 PM EXPERIENTIAL THERAPIST ECG 12-LEAD WITH MUSE SJN,SJO,WWH STAT 05/27/2024 12:12 PM EXPERIENTIAL THERAPIST documented in this encounter Results * (ABNORMAL) Manual Differential (05/27/2024 3:13 PM EXPERIENTIAL THERAPIST) Pathologist [facility] % Neutrophils 71 % JARET 05/27/2024 3:51 PM EXPERIENTIAL THERAPIST [facility] % Lymphocytes 20 % JARET 05/27/2024 3:51 PM EXPERIENTIAL THERAPIST [facility] % Monocytes 9 % JARET 05/27/2024 3:51 PM [facility] % Eosinophils 0 % JARET 05/27/2024 3:51 PM [facility] % Basophils 0 % JARET 05/27/2024 3:51 PM [facility] Absolute Neutrophils 11.1(H) 1.6 - 8.3 10e3/uL JARET 05/27/2024 3:51 PM [facility] Absolute Lymphocytes 3.1 0.8 - 5.3 10e3/uL JARET 05/27/2024 3:51 PM [facility] Absolute Monocytes 1.4(H) 0.0 - 1.3 10e3/uL JARET 05/27/2024 3:51 PM [facility] Absolute Eosinophils 0.0 0.0 - 0.7 10e3/uL JARET 05/27/2024 3:51 PM EXPERIENTIAL THERAPIST [facility] Absolute Basophils 0.0 0.0 - 0.2 10e3/uL JARET 05/27/2024 3:51 PM [facility] RBC Morphology Confirmed RBC Indices JARET 05/27/2024 3:51 PM [facility] Platelet Assessment Automated Count Confirmed. Platelet morphology is normal. Automated Count Confirmed. Platelet morphology is normal. JARET 05/27/2024 3:51 PM [facility] Acanthocytes Slight(A) None Seen JARET 05/27/2024 3:51 PM [facility] Elliptocytes Slight(A) None Seen JARET 05/27/2024 3:51 PM [facility] RBC Fragments Slight(A) None Seen JARET 05/27/2024 3:51 PM [facility] Polychromasia Slight(A) None Seen JARET 05/27/2024 3:51 PM [facility] Sickle Cells Moderate(A) None Seen JARET 05/27/2024 3:51 PM [facility] Target Cells Slight(A) None Seen JARET 05/27/2024 3:51 PM [facility] Blood (Portacath) Venipuncture / Unknown 05/27/2024 3:13 PM EXPERIENTIAL THERAPIST 05/27/2024 3:15 PM [facility] Blas Mcclellan MD LAB - BLOOD ORDERABLES Final Result [facility] [address] [place] [address], [facility] * (ABNORMAL) CBC with platelets and differential (05/27/2024 3:13 PM EXPERIENTIAL THERAPIST) WBC Count 15.7(H) 4.0 - 11.0 10e3/uL 05/27/2024 3:48 PM [facility] RBC Count 2.21(L) 3.80 - 5.20 10e6/uL 05/27/2024 3:48 PM [facility] Hemoglobin 7.1(L) 11.7 - 15.7 g/dL 05/27/2024 3:48 PM [facility] Hematocrit 20.2(L) 35.0 - 47.0 % 05/27/2024 3:48 PM [facility] MCV 91 78 - 100 fL 05/27/2024 3:48 PM [facility] MCH 32.1 26.5 - 33.0 pg 05/27/2024 3:48 PM [facility] MCHC 35.1 31.5 - 36.5 g/dL 05/27/2024 3:48 PM [facility] RDW 23.0(H) 10.0 - 15.0 % 05/27/2024 3:48 PM [facility] Platelet Count 429 150 - 450 10e3/uL 05/27/2024 3:48 PM [facility] Blood (Portacath) Venipuncture / Unknown 05/27/2024 3:13 PM EXPERIENTIAL THERAPIST 05/27/2024 3:15 PM [facility] us Blas Mcclellan MD LAB - BLOOD ORDERABLES Final Result [facility] [address] [place] [address], [facility] * (ABNORMAL) Reticulocyte count (05/27/2024 3:13 PM EXPERIENTIAL THERAPIST) % Reticulocyte 28.0(H) 0.5 - 2.0 % 05/27/2024 3:19 PM EXPERIENTIAL THERAPIST [facility] Absolute Reticulocyte 0.619(H) 0.025 - 0.095 10e6/uL 05/27/2024 3:19 PM EXPERIENTIAL THERAPIST [facility] Blood (Portacath) Venipuncture / Unknown 05/27/2024 3:13 PM EXPERIENTIAL THERAPIST 05/27/2024 3:15 PM EXPERIENTIAL THERAPIST Blas Mcclellan MD LAB - BLOOD ORDERABLES Final Result [facility] [address] [place] [address], [facility] * Chest XR, PA & LAT (05/27/2024 2:57 PM EXPERIENTIAL THERAPIST) Anatomical Region Laterality Modality Chest Digital Radiogra phy 05/27/2024 2:57 PM EXPERIENTIAL THERAPIST Impressions 05/27/2024 3:03 PM EXPERIENTIAL THERAPIST IMPRESSION: New right and left chest ports, with catheter tips at the superior cavoatrial junction. Unchanged patchy opacities in the right greater mid to lower lungs. No consolidation or pleural effusion. Stable mediastinal silhouette. Narrative 05/27/2024 3:03 PM EXPERIENTIAL THERAPIST EXAM: XR CHEST 2 VIEWS LOCATION: [facility] DATE: 05/27/2024 INDICATION: chest pain, sickle cell, bilateral port placement 3 days ago COMPARISON: 05/22/2024 Procedure Note Rachel Joe MD - 05/27/2024 EXAM: XR CHEST 2 VIEWS LOCATION: [facility] DATE: 05/27/2024 INDICATION: chest pain, sickle cell, bilateral port placement 3 days ago COMPARISON: 05/22/2024 IMPRESSION: New right and left chest ports, with catheter tips at thesuperior cavoatrial junction. Unchanged patchy opacities in the rightgreater mid to lower lungs. No consolidation or pleural effusion. Stablemediastinal silhouette. Blas Mcclellan MD IMG DIAGNOSTIC IMAGING ORDERA BLES Final Result * (ABNORMAL) Comprehensive metabolic panel (05/27/2024 2:30 PM EXPERIENTIAL THERAPIST) [facility] Sodium 136 135 - 145 mmol/L 05/27/2024 2:59 PM [facility] Potassium 4.8 3.4 - 5.3 mmol/L 05/27/2024 2:59 PM [facility] Carbon Dioxide (CO2) 18(L) 22 - 29 mmol/L 05/27/2024 2:59 PM [facility] Anion Gap 12 7 - 15 mmol/L 05/27/2024 2:59 PM [facility] Urea Nitrogen 8.4 6.0 - 20.0 mg/dL 05/27/2024 2:59 PM [facility] Creatinine 0.67 0.51 - 0.95 mg/dL 05/27/2024 2:59 PM [facility] GFR Estimate >90 >60 mL/min/1.7 3m2 05/27/2024 2:59 PM [facility] Comment:eGFR calculated us2020 CKD-EPI equation. Calcium 9.3 8.8 - 10.4 mg/dL 05/27/2024 2:59 PM [facility] Chloride 106 98 - 107 mmol/L 05/27/2024 2:59 PM [facility] Glucose 97 70 - 99 mg/dL 05/27/2024 2:59 PM [facility] Alkaline Phosphatase 94 40 - 150 U/L 05/27/2024 2:59 PM [facility] AST 51(H) 0 - 45 U/L 05/27/2024 2:59 PM [facility] ALT 19 0 - 50 U/L 05/27/2024 2:59 PM [facility] Protein Total 7.7 6.4 - 8.3 g/dL 05/27/2024 2:59 PM [facility] Albumin 4.4 3.5 - 5.2 g/dL 05/27/2024 2:59 PM [facility] Bilirubin Total 2.7(H) <=1.2 mg/dL 05/27/2024 2:59 PM [facility] Blood VENOUS LINE / Unknown Venipuncture / Unknown 05/27/2024 2:30 PM EXPERIENTIAL THERAPIST 05/27/2024 2:36 PM [facility] Blas Mcclellan MD LAB - BLOOD ORDERABLES Final Result [facility] [address] [place] [address], [facility] * ECG 12-LEAD WITH MUSE (LHE) (05/27/2024 12:12 PM EXPERIENTIAL THERAPIST) Systolic Blood Pressure 110 mmHg RADIOLOGY RESULTS Diastolic Blood Pressure 63 mmHg RADIOLOGY RESULTS Ventricular Rate 91 BPM RAD IOLOGY RESULTS Atrial Rate 91 BPM RADIOLOG Y RESULTS NC Interval 142 ms RADIOLOG Y RESULTS QRS Duration 80 ms RADIOLO GY RESULTS QT 352 ms RADIOLOGY RESULTS QTc 432 ms RADIOLOGY RESULTS P [place] 39 degrees RADIOLOGY RESULTS R AXIS 62 degrees RADIOLOGY RESULTS T [place] 23 degrees RADIOLOGY RESULTS Interpretation ECG Sinus rhythm Nonspecific T wave abnormality Abnormal ECG When compared with ECG of 23-May-2024 18:54, Nonspecific T wave abnormality now evident in Inferior leads Nonspecific T wave abnormality now evident in Anterior leads Confirmed by SEE ED PROVIDER NOTE FOR, ECG INTERPRETATION (4000), video effects editor BEN PRAKASH ([id number]) on 05/27/2024 12:22:37 PM RADIOLOGY RESULTS 05/27/2024 12:1 2 PM EXPERIENTIAL THERAPIST 05/27/2024 12:22 PM EXPERIENTIAL THERAPIST us Blas Mcclellan MD ECG ORDERABLES Edited Result - Final RADIOLOGY RESULTS documented in this encounter Visit Diagnoses Diagnosis Sickle cell disease with crisis (H) Hb-SS disease with crisis documented in this encounter Administered Medications Inactive Administered Medications - up to 3 most recent administrations Medication Order MAR Action Action Date Dose Rate Site diphenhydrAMINE (BENADRYL) injection 25 mg 25 mg, Intravenous, ONCE, On 05/27/24 at 1630, For 1 dose $Given 05/27/2024 4:34 PM EXPERIENTIAL THERAPIST 25 mg heparin lock flush 100 unit/mL injection 5 mL 5 mL, Intracatheter, ONCE, On 05/27/24 at 1730, For 1 dose $Given 05/27/2024 5:33 PM EXPERIENTIAL THERAPIST 5 mLs HYDROmorphone (DILAUDID) injection 2 mg 2 mg, Intravenous, ONCE, On 05/27/24 at 1300, For 1 dose $Given 05/27/2024 2:43 PM EXPERIENTIAL THERAPIST 2 mg HYDROmorphone (DILAUDID) injection 2 mg 2 mg, Intravenous, ONCE, On 05/27/24 at 1630, For 1 dose $Given 05/27/2024 4:37 PM EXPERIENTIAL THERAPIST 2 mg HYDROmorphone (DILAUDID) injection 2 mg 2 mg, Intravenous, ONCE, On 05/27/24 at 1730, For 1 dose $Given 05/27/2024 5:09 PM EXPERIENTIAL THERAPIST 2 mg lactated ringers BOLUS 1,000 mL Intravenous, 1,000 mL, ONCE, On 05/27/24 at 1300, For 1 dose $New Bag 05/27/2024 2:33 PM EXPERIENTIAL THERAPIST 1,000 mLs ondansetron (ZOFRAN) injection 8 mg 8 mg, Intravenous, ONCE, Administer over 2-5 Minutes, On 05/27/24 at 1300, For 1 dose $Given 05/27/2024 2:40 PM EXPERIENTIAL THERAPIST 8 mg documented in this encounter Active and Recently Administered Medications Times are shown in EXPERIENTIAL THERAPIST. Scheduled Medication Order 05/25/2024 05/26/2024 05/27/2024 diphenhydrAMINE (BENADRYL) injection 25 mg (COMPLETED) 25 mg, Intravenous, ONCE, On 05/27/24 at 1630, For 1 dose 1634 ($Given - Provi nas: Dave Aviles RN) heparin lock flush 100 unit/mL injection 5 mL (COMPLETED) 5 mL, Intracatheter, ONCE, On 05/27/24 at 1730, For 1 dose 1733 ($Given - Provi nas: Dave Aviles RN) HYDROmorphone (DILAUDID) injection 2 mg (COMPLETED) 2 mg, Intravenous, ONCE, On 05/27/24 at 1300, For 1 dose 1443 ($Given - Provi nas: Dave Aviles, SOFIA) HYDROmorphone (DILAUDID) injection 2 mg (COMPLETED) 2 mg, Intravenous, ONCE, On 05/27/24 at 1630, For 1 dose 1637 ($Given - Provi nas: Dave Aviles RN) HYDROmorphone (DILAUDID) injection 2 mg (COMPLETED) 2 mg, Intravenous, ONCE, On 05/27/24 at 1730, For 1 dose 1709 ($Given - Provi nas: Dave Aviles, SOFIA) lactated ringers BOLUS 1,000 mL (COMPLETED) Intravenous, 1,000 mL, ONCE, On 05/27/24 at 1300, For 1 dose 1433 ($New Bag - Pro vider: Dave Aviles, RN)1634 (Stopped - Provider: Dave Aviles, RN) ondansetron (ZOFRAN) injection 8 mg (COMPLETED) 8 mg, Intravenous, ONCE, Administer over 2-5 Minutes, On 05/27/24 at 1300, For 1 dose 1440 ($Given - Provi nas: Dave Aviles, SOFIA) documented in this encounter Care Teams Biomedical Scientist Relationship Specialty Start Date End Date No Ref-Primary, Physician PCP - General 03/15/24 06/17/24 Mor Ramsey Medical Student 04/03/24 Case Samuel MD [address] [place] [address] [address], [address] [place] [address] Assigned Pediatric Specialist Provider 05/18/24 documented as of this encounter
--- OUTSIDE RECORDS SUMMARY | 2024-06-21 22:18 | XMS_ITS | Encounter Summary ---
Author Organization [facility] Address [address] [place] [id number] Care Team Providers Care Automatic Lehr Operator Name Role Phone No Ref-Primary, Physician Primary Care Provider Mor Ramsey Unavailable Unavailable Case Samuel MD Unavailable [phone] Juhi Benson RN Unavailable Unavailable Reason for Visit * Reason Comments Chest Pain Sickle Cell Pain Crisis Encounter Details Date Type Department Care Team (Late st Contact Info) Description 06/03/2024 3:22 PM STACKER STRAIGHTENER - 06/03/2024 5:30 PM STACKER STRAIGHTENER Emergency [facility] Emergency Room [facility] [place] [address] Jennifer Bell MD [address] [place] [address] Sickle cell pain crisis (H) Discharge Disposition: [...] in an abandoned building, in an overnight fpc, or couch-surfing.) Yes 04/09/2024 Are you worried [...] on file Legal Sex Female 8:25 AM STACKER STRAIGHTENER Gender Identity Not on file Sexual Orientation Not on file documented as of this encounter Last Filed Vital Signs Vital Sign Reading Time Taken Comments Blood Pressure 117/57 06/03/2024 5:00 PM STACKER STRAIGHTENER Pulse 96 06/03/2024 5:00 PM STACKER STRAIGHTENER Temperature 36.3 C (97.4 F) 06/03/2024 3:23 PM STACKER STRAIGHTENER Respiratory Rate 17 06/03/2024 5:00 PM STACKER STRAIGHTENER Oxygen Saturation 96% 06/03/2024 5:00 PM STACKER STRAIGHTENER Inhaled Oxygen Concentration - - Weight 52.2 kg (115 lb) 06/03/2024 3:23 PM STACKER STRAIGHTENER Height 154.9 cm (5' 1) 06/03/2024 3:23 PM STACKER STRAIGHTENER Body Mass Index 21.73 06/03/2024 3:23 PM STACKER STRAIGHTENER documented in this encounter Discharge Instructions * Attachments The following attachments cannot be sent through Care Everywhere. * Sickle Cell Crisis (Bulgarian) documented in this encounter Medications at Time [...] as of this encounter ED Notes * Jennifer Bell MD - 06/03/2024 3:32 PM CST EMERGENCY DEPARTMENT ENCOUNTER NAME: Gianna Hernández AGE: [age] year old female DATE OF : 1995 EVALUATION DATE & TIME: 06/03/2024 3:22 PM PCP: No Ref-Primary, Physician ED PROVIDER: Jennifer Bell MD Chief Complaint Patient presents with Chest Pain Sickle Cell Pain Crisis FINAL IMPRESSION: 1. Sickle cell pain crisis (H) ED COURSE & MEDICAL DECISION MAKING: Pertinent Labs & Imaging studies reviewed. (See chart for details) 29 year old female with history of sickle cell, previous PE, CVA, endocarditis and avascular necrosis who presents to the Emergency Department for evaluation of sickle cell pain. Patient describes this as her usual sickle cell type pain with right sided chest pain that radiates to the left as well as back and whole body pain not improving with her oral Dilaudid 4 mg every 4 hours at home. Patientstates that this is not any worse or different than her usual pain crises. Presents here simply forsymptom control. Patient well-known to our emergency department and has a care plan for same. No indications for anything warranting laboratory testing initially patient had labs done at [facility] ER earlier this morning as well as chest x-ray without any obvious infiltrate. She is not hypoxic, febrile and I do not think warrants any additional testing but rather symptom control. Patient initially seen evaluate myself in triage area due to boarding crisis. Port accessed. Given LR bolus, Zofran, Dilaudid x 2. Request Benadryl, which she is given orally after her nausea is feltimproved. On repeat assessment, patient feels improved and is requesting discharge home. ED Course as of 06/03/24 1705 Sat Jun 03, 2024 1532 I met with the patient to obtain patient history and performed a physical exam. Discussed planfor ED work up including potential diagnostic studies and interventions. 1702 Patient feeling improved requesting discharge Medical Decision Making Obtained supplemental history:Supplemental history obtained?: No Reviewed external records: External records reviewed?: Outpatient Record: [facility] today (06/03/24) Care impacted by chronic illness:Other: Sickle Cell Disease Did you consider but not order tests?: Work up considered but not performed and documented in chart, if applicable Did you interpret images independently?: Independent interpretation of ECG and images noted in documentation, when applicable. Consultation discussion with other provider:Did you involve another provider (workforce consultant, , pharmacy, etc.)?: No Discharge. I recommended the patient continue their current prescription strength medication(s): Dilaudid as needed. See documentation for any additional details. MIPS: Not Applicable At the conclusion of the encounter I discussed the results of all of the tests and the disposition.The questions were answered. The patient or family acknowledged understanding and was agreeable with the care plan. MEDICATIONS GIVEN IN THE EMERGENCY: Medications sodium chloride (PF) 0.9% PF flush 10-20 mL (has no administration in time range) sodium chloride (PF) 0.9% PF flush 10-20 mL (has no administration in time range) sodium chloride (PF) 0.9% PF flush 10-20 mL (10 mLs Intracatheter $Given 06/03/24 4027) heparin lock flush 10 unit/mL injection 5-10 mL (has no administration in time range) heparin lock flush 10 unit/mL injection 5-10 mL (has no administration in time range) heparin lock flush 100 unit/mL injection 5-10 mL (has no administration in time range) HYDROmorphone (DILAUDID) injection 2 mg (2 mg Intravenous $Given 06/03/24 1648) lactated ringers BOLUS 1,000 mL (1,000 mLs Intravenous $New Bag 06/03/24 1551) ondansetron (ZOFRAN) injection 8 mg (8 mg Intravenous $Given 06/03/24 1546) diphenhydrAMINE (BENADRYL) capsule 50 mg (50 mg Oral $Given 06/03/24 1618) NEW PRESCRIPTIONS STARTED AT TODAY'S ER VISIT New Prescriptions No medications on file HPI Patient information was obtained from: Patient Use of Intrepreter: N/A Gianna Hernández is a 29 year old female with pertinent medical history of sickle cell disease who presents the emergency department with chest pain. Patient is well known to the ER and has a history of chronic sickle cell pain and opioid dependence. She does have a care plan for her sickle cell crisis. Patient reports for the past several days, she's been experiencing her typical sickle cell pain and chest pain that is typical to her sickle cell pain. Patient presented to [facility] this morning due to sickle cell crisis and has labs, covid, flu, RSV, and chest x-ray which were all negative. She usually visits [facility] ED when her pain presents but she did not want to drive far with the [place]. According to patient, they didn't believe her sickle cell disease, so they discharged patient with no stronger pain medications so she decided to come here. Patient is afebrile. There were no other concerns/complaints at this time. Chart Review: - Patient presented to [facility] today for her sickle cell pain crisis. Patient stated she is having sickle cell and having sharp, continuous chest pain which started around 0500 today. Patient was discharged with instructions to take 1000mg of Tylenol every 6 hours as needed, and 400mg of ibuprofen every 6 hours as needed. 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 Facility-Administered Medications: None ALLERGIES: Allergies Allergen Reactions Banana Anaphylaxis, Hives [...] Cell Trait Daughter SOCIAL HISTORY: Social History Tobacco Use Smoking status: Never Smokeless tobacco: Never Substance Use Topics Alcohol use: Not Currently Drug use: Never VITALS: Patient Vitals for the past 24 hrs: BP Temp Temp src Pulse Resp SpO2 Height Weight 06/03/24 1700 117/57 -- -- 96 17 96 % -- -- 06/03/24 1630 111/64 -- -- 84 -- 99 % -- -- 06/03/24 1600 106/69 -- -- 78 17 95 % -- -- 06/03/24 1523 131/76 97.4 ??F (36.3 ??C) Temporal 94 16 98 % 1.549 m (5' 1) 52.2 kg (115 lb) PHYSICAL EXAM General Appearance: Well-appearing, well-nourished, no acute distress Head: Normocephalic ENT: membranes are moist without pallor Neck: Supple, symmetrical, trachea midline, no adenopathy Chest: No tenderness or deformity, no crepitus. Port to chest. Cardio: Regular rate and rhythm, no murmur/gallop/rub Pulm: No respiratory distress, clear to auscultation bilaterally Back: No CVA tenderness, normal ROM Abdomen: Soft, non-tender Extremities: Normal gait Neuro: Alert and oriented ??3 RADIOLOGY/LABS: Reviewed all pertinent imaging. Please see official radiology report. All pertinent labs reviewed and interpreted. Results for orders placed or performed during the hospital encounter of 06/03/24 ECG 12-LEAD WITH MUSE (LHE) Result Value Ref Range Systolic Blood Pressure 131 mmHg Diastolic Blood Pressure 76 mmHg Ventricular Rate 85 BPM Atrial Rate 85 BPM GA Interval 136 ms QRS Duration 82 ms QT 382 ms QTc 454 ms P Madeline 54 degrees R AXIS 72 degrees T Madeline 50 degrees Interpretation ECG Sinus rhythm Nonspecific T wave abnormality Abnormal ECG When compared with ECG of 27-May-2024 12:12, No significant change was found Confirmed by SEE ED PROVIDER NOTE FOR, ECG INTERPRETATION ([id number]), editor in chief BEN PRAKASH ([id number]) on 06/03/2024 3:58:10 PM EKG: Performed at: 03-Jun-2024 15:24:43 Impression: Sinus rhythm, nonspecific T wave abnormality, abnormal ECG Rate: 85 Rhythm: Sinus Madeline: 72 GA Interval: 136 QRS Interval: 82 QTc Interval: 454 ST Changes: None Comparison: When compared with ECG of 27-May-2024 12:12, no significant change was found. I have independently reviewed and interpreted the EKG(s) documented above. The creation of this record is based on the scribe???s observations of the work being performed by Jennifer Bell MD and the provider???s statements to them. It was created on her behalf by Alex Parsons, a trained medical coder. This document has been checked and approved by the attending provider. Jennifer Bell MD Emergency Medicine [facility] EMERGENCY ROOM [address] [facility] [address] Dept: [phone] Jennifer Bell MD 06/03/24 1701 KER STRAIGHTENER * Nedra Martin RN - 06/03/2024 3:23 PM CST Pt c/o a possible sickle cell crisis with right sided chest pain that radiates to the left side. The pt did attempt to try using her home medication of diluadid of 4 mg without relief. Was just seen at [facility]. Pt has a port. Triage Assessment (Adult) Row Name 06/03/24 1520 Triage Assessment Airway WDL WDL Respiratory WDL Respiratory WDL WDL Skin Circulation/Temperature WDL Skin Circulation/Temperature WDL WDL Cardiac WDL Cardiac WDL chest pain Chest Pain Assessment Chest Pain Location anterior chest, left;anterior chest, right Chest Pain Radiation back Character sharp Chest Pain Intervention 12-lead ECG obtained Peripheral/Neurovascular WDL Peripheral Neurovascular WDL WDL Cognitive/Neuro/Behavioral WDL Cognitive/Neuro/Behavioral WDL WDL KER STRAIGHTENER documented in this encounter Plan of Treatment Not on file documented as of this encounter Goals Goal Patient Goal Type Associated Problems Recent Progress Patient-Stated? Author Pain Management General On track( 025 12:40 PM STACKER STRAIGHTENER) Yes Juhi Benson, RN Note: Goal Statement: [...] Associated Diagnosis Comments ECG 12-LEAD WITH MUSE MAHOGANYShawanda,SJO,WWRocio STAT 06/03/2024 3:24 PM STACKER STRAIGHTENER documented in this encounter Results * ECG 12-LEAD WITH MUSE (LHE) (06/03/2024 3:24 PM STACKER STRAIGHTENER) Systolic Blood Pressure 131 mmHg RADIOLOGY RESULTS Diastolic Blood Pressure 76 mmHg RADIOLOGY RESULTS Ventricular Rate 85 BPM RAD IOLOGY RESULTS Atrial Rate 85 BPM RADIOLOG Y RESULTS GA Interval 136 ms RADIOLOG Y RESULTS QRS Duration 82 ms RADIOLO GY RESULTS QT 382 ms RADIOLOGY RESULTS QTc 454 ms RADIOLOGY RESULTS P Madeline 54 degrees RADIOLOGY RESULTS R AXIS 72 degrees RADIOLOGY RESULTS T Madeline 50 degrees RADIOLOGY RESULTS Interpretation ECG Sinus rhythm Nonspecific T wave abnormality Abnormal ECG When compared with ECG of 27-May-2024 12:12, No significant change was found Confirmed by SEE ED PROVIDER NOTE FOR, ECG INTERPRETATION ([id number]), editor in chief BEN PRAKASH ([id number]) on 06/03/2024 3:58:10 PM RADIOLOGY RESULTS 06/03/2024 3:24 PM STACKER STRAIGHTENER 06/03/2024 3:58 PM STACKER STRAIGHTENER us Deshawn Arredondo MD ECG ORDERABLES Edited Resu lt - Final RADIOLOGY RESULTS documented in this encounter Visit Diagnoses Diagnosis 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 documented in this encounter Administered Medications Inactive Administered Medications - up to 3 most recent administrations Medication Order MAR Action Action Date Dose Rate Site diphenhydrAMINE (BENADRYL) capsule 50 mg 50 mg, Oral, ONCE, On 06/03/24 at 1630, For 1 dose $Given 06/03/2024 4:18 PM STACKER STRAIGHTENER 50 mg heparin lock flush 10 unit/mL injection 5-10 mL 5-10 mL, Intracatheter, EVERY 1 HOUR PRN, post meds or blood draw, other, to lock each port in dual implanted port, Starting on 06/03/24 at 1520, Flush each port lumen with the sodium chloride 0.9% flush followed by the heparin flush. MAX dose: 5 mL of heparin for each lumen heparin lock flush 10 unit/mL injection 5-10 mL 5-10 mL, Intracatheter, EVERY 24 HOURS, First dose on 06/03/24 at 1530, To lock each dormant port in dual implanted port. MAX: 5 mL of heparin for each lumen Check PRN heparin flush order to see when the last dose of the PRN heparin was given before administering this heparin dose. Flush with sodium chloride 0.9% followed by the heparin flush. $Given 06/03/2024 5:20 PM STACKER STRAIGHTENER 5 mLs heparin lock flush 100 unit/mL injection 5-10 mL 5-10 mL, Intracatheter, EVERY 28 DAYS, First dose on 06/03/24 at 1530, To de-access each port in dual implanted port. Flush with 10 mL NS sodium chloride 0.9% flush followed by 5 mL heparin (100 units/mL) at discharge and at least every 28 days. MAX: 5 mL per each port lumen HYDROmorphone (DILAUDID) injection 2 mg 2 mg, Intravenous, EVERY 1 HOUR PRN, moderate pain, severe pain, Starting on 06/03/24 at 1520, For 3 doses $Given 06/03/2024 4:48 PM STACKER STRAIGHTENER 2 mg $Given 06/03/2024 3:46 PM STACKER STRAIGHTENER 2 mg lactated ringers BOLUS 1,000 mL Intravenous, 1,000 mL, ONCE, at 500 mL/hr, Administer over 2 Hours, On 06/03/24 at 1530, For 1 dose $New Bag 06/03/2024 3:51 PM STACKER STRAIGHTENER 1,000 mLs 500 mL/hr ondansetron (ZOFRAN) injection 8 mg 8 mg, Intravenous, ONCE, Administer over 2-5 Minutes, On 06/03/24 at 1530, For 1 dose $Given 06/03/2024 3:46 PM STACKER STRAIGHTENER 8 mg sodium chloride (PF) 0.9% PF flush 10-20 mL 10-20 mL, Intracatheter, EVERY 1 MIN PRN, line flush, post meds or blood draw, to flush each lumen of the CVC Implanted port, Starting on 06/03/24 at 1520, 10 mL per port lumen post IV meds; 20 mL per port lumen post post blood draw. sodium chloride (PF) 0.9% PF flush 10-20 mL 10-20 mL, Intracatheter, EVERY 1 HOUR PRN, other, to de-access port when not in use, Starting on 06/03/24 at 1520, Use sodium chloride 0.9% at least daily to de-access each port and lock dormant implanted port while not in use. Flush each port access with 10 mL sodium chloride 0.9% MAX: 10 mL per each port lumen sodium chloride (PF) 0.9% PF flush 10-20 mL 10-20 mL, Intracatheter, EVERY 28 DAYS, First dose on 06/03/24 at 1530, To flush and lock each port in dual implanted port. Flush each port with 10 mL sodium chloride 0.9% followed by either heparin or anticoagulant citrate as ordered. Max: 10 mL per each port lumen. $Given 06/03/2024 3:51 PM STACKER STRAIGHTENER 10 mLs documented in this encounter Active and Recently Administered Medications Times are shown in STACKER STRAIGHTENER. Scheduled Medication Order 06/01/2024 06/02/2024 06/03/2024 diphenhydrAMINE (BENADRYL) capsule 50 mg (COMPLETED) 50 mg, Oral, ONCE, On 06/03/24 at 1630, For 1 dose 1618 ($Given - Provi nas: Hattie Lee RN) heparin lock flush 10 unit/mL injection 5-10 mL 5-10 mL, Intracatheter, EVERY 24 HOURS, First dose on 06/03/24 at 1530, To lock each dormant port in dual implanted port. MAX: 5 mL of heparin for each lumen Check PRN heparin flush order to see when the last dose of the PRN heparin was given before administering this heparin dose. Flush with sodium chloride 0.9% followed by the heparin flush. 1720 ($Given - Provi nas: Stephanie Shaw RN) heparin lock flush 100 unit/mL injection 5-10 mL 5-10 mL, Intracatheter, EVERY 28 DAYS, First dose on 06/03/24 at 1530, To de-access each port in dual implanted port. Flush with 10 mL NS sodium chloride 0.9% flush followed by 5 mL heparin (100 units/mL) at discharge and at least every 28 days. MAX: 5 mL per each port lumen 1530 (Canceled Entry - Provider: Orders Generic Provider - Comment: Automatically canceled at discontinue of medication order) lactated ringers BOLUS 1,000 mL (COMPLETED) Intravenous, 1,000 mL, ONCE, at 500 mL/hr, Administer over 2 Hours, On 06/03/24 at 1530, For 1 dose 1551 ($New Bag - Pro vider: Hattie Lee RN)1724 (Stopped - Provider: Stephanie Shaw RN) ondansetron (ZOFRAN) injection 8 mg (COMPLETED) 8 mg, Intravenous, ONCE, Administer over 2-5 Minutes, On 06/03/24 at 1530, For 1 dose 1546 ($Given - Provi nas: Hattie Lee RN) sodium chloride (PF) 0.9% PF flush 10-20 mL 10-20 mL, Intracatheter, EVERY 28 DAYS, First dose on 06/03/24 at 1530, To flush and lock each port in dual implanted port. Flush each port with 10 mL sodium chloride 0.9% followed by either heparin or anticoagulant citrate as ordered. Max: 10 mL per each port lumen. 1551 ($Given - Provi nas: Hattie Lee RN) PRN Medication Order 06/01/2024 06/02/2024 06/03/2024 heparin lock flush 10 unit/mL injection 5-10 mL 5-10 mL, Intracatheter, EVERY 1 HOUR PRN, post meds or blood draw, other, to lock each port in dual implanted port, Starting on 06/03/24 at 1520, Flush each port lumen with the sodium chloride 0.9% flush followed by the heparin flush. MAX dose: 5 mL of heparin for each lumen HYDROmorphone (DILAUDID) injection 2 mg 2 mg, Intravenous, EVERY 1 HOUR PRN, moderate pain, severe pain, Starting on 06/03/24 at 1520, For 3 doses 1546 ($Given - Provi nas: Hattie Lee RN)1648 ($Given - Provider: Hattie Lee RN) sodium chloride (PF) 0.9% PF flush 10-20 mL 10-20 mL, Intracatheter, EVERY 1 MIN PRN, line flush, post meds or blood draw, to flush each lumen of the CVC Implanted port, Starting on 06/03/24 at 1520, 10 mL per port lumen post IV meds; 20 mL per port lumen post post blood draw. sodium chloride (PF) 0.9% PF flush 10-20 mL 10-20 mL, Intracatheter, EVERY 1 HOUR PRN, other, to de-access port when not in use, Starting on 06/03/24 at 1520, Use sodium chloride 0.9% at least daily to de-access each port and lock dormant implanted port while not in use. Flush each port access with 10 mL sodium chloride 0.9% MAX: 10 mL per each port lumen documented in this encounter Care Teams Automatic Lehr Operator Relationship Specialty Start Date End Date No Ref-Primary, Physician PCP - General 03/15/24 06/17/24 Mor Ramsey Medical Student 04/03/24 Case Samuel MD [address] [place] [address], [address] [place] [address] Assigned Pediatric Specialist Provider 05/18/24 Juhi Benson, SOFIA Specialty Slitter And Rewinder Machine Operator Hematology & Oncology 05/29/24 documented as of this encounter
--- OUTSIDE RECORDS SUMMARY | 2024-06-21 22:19 | XMS_ITS | Encounter Summary ---
Author Organization [facility] Address [address] [place] [id number] Care Team Providers Care Rehab Rn Name Role Phone No Ref-Primary, Physician Primary Care Provider Mor Ramsey Unavailable Unavailable Case Samuel MD Unavailable Reason for Visit * Reason Comments Sickle Cell Pain Crisis Chest Pain Encounter Details Date Type Department Care Team (Late st Contact Info) Description 05/20/2024 7:30 AM SOCIAL MEDIA SENIOR ASSOCIATE - 05/20/2024 11:15 AM RUST Emergency [facility] Emergency Room [address] [place] [address] Stiven Madsen MD [facility] [address], [place] [id number] Sickle cell pain crisis (H) Discharge Disposition: [...] on file Legal Sex Female 8:25 AM SOCIAL MEDIA SENIOR ASSOCIATE Gender Identity Not on file Sexual Orientation Not on file documented as of this encounter Last Filed Vital Signs Vital Sign Reading Time Taken Comments Blood Pressure 115/59 05/20/2024 11:00 AM SOCIAL MEDIA SENIOR ASSOCIATE Pulse 76 05/20/2024 11:00 AM SOCIAL MEDIA SENIOR ASSOCIATE Temperature 37.3 C (99.2 F) 05/20/2024 7:33 AM SOCIAL MEDIA SENIOR ASSOCIATE Respiratory Rate 20 05/20/2024 11:00 AM SOCIAL MEDIA SENIOR ASSOCIATE Oxygen Saturation 100% 05/20/2024 11:00 AM SOCIAL MEDIA SENIOR ASSOCIATE Inhaled Oxygen Concentration - - Weight 50.8 kg (112 lb) 05/20/2024 7:33 AM SOCIAL MEDIA SENIOR ASSOCIATE Height 154.9 cm (5' 1) 05/20/2024 7:33 AM SOCIAL MEDIA SENIOR ASSOCIATE Body Mass Index 21.16 05/20/2024 7:33 AM SOCIAL MEDIA SENIOR ASSOCIATE documented in this encounter Discharge Instructions * Discharge Instructions* Stiven Madsen MD - 05/20/2024 11:08 AM SOCIAL MEDIA SENIOR ASSOCIATE Please continue working with your tester electronic scale after this and recent hospital visits. Try to make sure that you are drinking plenty of liquids to keep yourself hydrated. Continue to take your usual pain medications. If you have other concerns specifically productive cough, severe chest pain, shortness of breath, or other immediate concern we should reevaluate in the emergency department. AL MEDIA SENIOR ASSOCIATE documented in this encounter Medications at Time [...] needed for severe pain. 30 tablet 05/09/2024 documented as of this encounter ED Notes * Suzanne Cadet RN - 05/20/2024 11:02 AM CST Pt requesting additional pain medication. Medicated per provider order. You can tell the doctor I'm ready for discharge. My ride is on their way and will be here in 10 minutes. Message sent to provider. AL MEDIA SENIOR ASSOCIATE * Suzanne Cadet RN - 05/20/2024 10:00 AM CST Pt requesting additional medication for pain. Also requesting medication for itching. Message sent to provider. Medicated per provider order. AL MEDIA SENIOR ASSOCIATE * Yanna Huerta RN - 05/20/2024 8:43 AM CST IV infiltrated and removed, LES RN coming to try for IV AL MEDIA SENIOR ASSOCIATE * Yanna Huerta RN - 05/20/2024 8:10 AM CST Introduced self to patient. Whiteboard updated. Plan of care and length of time discussed with patient. Will continue to monitor. Yanna Huerta RN.......05/20/2024 8:37 AM AL MEDIA SENIOR ASSOCIATE * Stiven Madsen MD - 05/20/2024 7:31 AM CST EMERGENCY DEPARTMENT ENCOUNTER NAME: Gianna Hernández AGE: [age] year old female DATE OF : 1995 EVALUATION DATE & TIME: 05/20/2024 7:30 AM PCP: Julieta Ref-Primary, Physician ED PROVIDER: Stiven Madsen M.D. Chief Complaint Patient presents with Sickle Cell Pain Crisis Chest Pain FINAL IMPRESSION: 1. Sickle cell pain crisis (H) ED COURSE & MEDICAL DECISION MAKIN29 year old female presents to the Emergency Department for evaluation of body pain and chest pain.Patient with a history of sickle cell disease. Radial instantly establishing care in [place] and with several ED visits across the last week including yesterday for similar symptoms. She arrives tot emergency department vitally stable. She is not febrile and has normal oximetry on room air. She reports specifically a little more pain in her chest today. Chest x-ray obtained and interpreted by radiology as slightly increased bilateral mid to lower lung patchy opacities, overall fairly similar appearance to a week ago. She does not have any other symptoms like productive cough, hypoxia, fever, or other clinical symptoms to correlate to acute chest syndrome/pneumonia. Given the stability from previous imaging I suspect this is related to atelectasis primarily. Patient's other labs look stable. She has a chronically elevated white blood cell count and chronic stable anemia with a hemoglobin of 8.4 today. Likewise has a chronic stable elevation of reticulocyte count which is unchanged from the last couple of weeks. Patient received IV fluids, antiemetics and Dilaudid per her care plan. Upon completion of these interventions she was resting more comfortably and eager to discharge. Continued follow-up with hematology was recommended. Patient discharged in stable condition. 7:40 AM I met with the patient, obtained history, performed an initial exam, and discussed options and plan for diagnostics and treatment here in the ED. 8:48 AM Updated patient regarding her lab results. 11:10 AM We discussed the plan for discharge and the patient is agreeable. Reviewed supportive cares, symptomatic treatment, outpatient follow up, and reasons to return to the Emergency Department. All questions and concerns were addressed. Patient to be discharged by ED RN. At the conclusion of the encounter I discussed the results of all of the tests and the disposition.The questions were answered. The patient or family acknowledged understanding and was agreeable with the care plan. Medical Decision Making Obtained supplemental history:Supplemental history obtained?: No Reviewed external records: External records reviewed?: Documented in chart Care impacted by chronic illness:Other: sickle cell disease, Did you consider but not order tests?: Work up considered but not performed and documented in chart, if applicable Did you interpret images independently?: Independent interpretation of ECG and images noted in documentation, when applicable. Consultation discussion with other provider:Did you involve another provider (travel service consultant, MH, pharmacy, etc.)?: No Discharge. No recommendations on prescription strength medication(s). I considered admission, but discharged patient after significant clinical improvement. MIPS: Not Applicable MEDICATIONS GIVEN IN THE EMERGENCY: Medications lactated ringers infusion (0 mLs Intravenous Stopped 05/20/24 1108) HYDROmorphone (DILAUDID) injection 2 mg (2 mg Intravenous $Given 05/20/24 1058) diphenhydrAMINE (BENADRYL) capsule 25 mg (25 mg Oral $Given 05/20/24 0959) NEW PRESCRIPTIONS STARTED AT TODAY'S ER VISIT Discharge Medication List as of 05/20/2024 11:09 AM HPI Patient information was obtained from: patient Use of Switch Operator: N/A Gianna Hernández is a 29 year old female with a pertinent history of sickle cell disease, malpositioned IUD, s/p , uncomplicated opioid dependence, and acute chest syndrome who presents to this ED by private car for evaluation of sickle cell pain crisis. Patient reports that she has been in pain for 2 days. She states she called the infusion center yesterday and has not gotten a call back from them yet. Patient reports chest pain and generalized bodyaches. She states her chest feel tight and she has sharp pain by her breast on the left side. Patient also endorses night sweats. Patient took 4 mg of Dilaudid around 4:00 AM. Patient denies cough, fever, leg pain, leg swelling, abdominal pain, or any other complaints at this time. Per chart review patient was seen in the ED for sickle cell pain crisis 17 times in the last month.Patient was given 3 doses of dilaudid per her care plan. On 05/08/24 she contacted her hematology/oncology team for a refill of hydromorphone, refill approved. Oncology recommended ED treatment: Hydromorphone 2 mg IVP/ Q1H x 3 doses, LR 500 midline/hr x 2 hours (1 L total), Toradol 30 mg IV x1, Zofran 8 mg IV. REVIEW OF SYSTEMS All systems reviewed and negative except as noted in HPI. 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 Recently moved to [place] from [place], [place]. She is 1 of 9 [...] Social Connections: Socially Integrated (03/28/2024) Received from [facility] Social Connections Do you often feel lonely [...] about losing your housing?: No VITALS: BP 115/59 Pulse 76 Temp 99.2 ??F (37.3 ??C) (Temporal) Resp 20 Ht 1.549 m (5' 1) Wt 50.8kg (112 lb) SpO2 100% BMI 21.16 kg/m?? PHYSICAL EXAM Constitutional: Well developed, Well nourished, NAD. HENT: Normocephalic, Atraumatic. Neck Supple. Eyes: EOMI, [...] focal deficits noted. Psychiatric: Cooperative. Affect appropriate. LAB: All pertinent labs reviewed and interpreted. Labs Ordered and Resulted from Time of ED Arrival to Time of ED Departure BASIC METABOLIC PANEL - Abnormal Result Value Sodium 136 Potassium 5.1 Chloride 105 Carbon Dioxide (CO2) 21 (*) Anion Gap 10 Urea Nitrogen 7.5 Creatinine 0.84 GFR Estimate >90 Calcium 9.1 Glucose 95 RETICULOCYTE COUNT - Abnormal % Reticulocyte 25.1 (*) Absolute Reticulocyte 0.646 (*) CBC WITH PLATELETS AND DIFFERENTIAL - Abnormal WBC Count 16.0 (*) RBC Count 2.57 (*) Hemoglobin 8.4 (*) Hematocrit 23.7 (*) MCV 92 MCH 32.7 MCHC 35.4 RDW 22.8 (*) Platelet Count 541 (*) % Neutrophils 59 % Lymphocytes 23 % Monocytes 15 % Eosinophils 2 % Basophils 1 % Immature Granulocytes 1 NRBCs per 100 WBC 2 (*) Absolute Neutrophils 9.4 (*) Absolute Lymphocytes 3.6 Absolute Monocytes 2.4 (*) Absolute Eosinophils 0.3 Absolute Basophils 0.2 Absolute Immature Granulocytes 0.2 Absolute NRBCs 0.2 BASIC METABOLIC PANEL - Abnormal Sodium 137 Potassium 4.8 Chloride 105 Carbon Dioxide (CO2) 22 Anion Gap 10 Urea Nitrogen 7.4 Creatinine 0.82 GFR Estimate >90 Calcium 9.3 Glucose 107 (*) RBC AND PLATELET MORPHOLOGY - Abnormal RBC Morphology Confirmed RBC Indices Platelet Assessment Value: Automated Count Confirmed. Platelet morphology is normal. Polychromasia Slight (*) Reactive Lymphocytes Present (*) Sickle Cells Moderate (*) Target Cells Slight (*) RADIOLOGY: Reviewed all pertinent imaging. Please see official radiology report. Chest XR, PA & LAT Final Result IMPRESSION: Slightly increased bilateral mid to lower lung patchy opacities which may reflect atelectatic changes or pneumonic infiltrates. No pleural effusion. Normal heart size. Multiple H-shaped thoracic vertebra consistent with the history of sickle cell disease. EKG: Performed at: 07:36 on 05/20/24 Impression: Sinus rhythm. Nonspecific T wave abnormality. Rate: 86 Rhythm: Sinus rhythm Malcom: 18 55 25 UT Interval: 154 QRS Interval: 78 QTc Interval: 370/442 ST Changes: None Comparison: When compared with ECG of 05/14/24, no significant change I have independently reviewed and interpreted the EKG(s) documented above. I, Thien Trevizo, am serving as a scribe to document services personally performed by Dr. Iyer, based on my observation and the provider's statements to me. I, Stiven Madsen MD attestthat Thien Trevizo is acting in a scribe capacity, has observed my performance of the services and has documented them in accordance with my direction. Stiven Madsen M.D. Emergency Medicine [facility] EMERGENCY ROOM [address] [place] [id number] Dept: [phone] Stiven Madsen MD 05/20/24 135 AL MEDIA SENIOR ASSOCIATE * Stefani Huizar RN - 05/20/2024 7:27 AM CST Pt c/o pain all over body, hx sickle cell and feels like flare up started 2 days ago. Pt also c/o left sided chest pain, pain with taking a deep breath. Pt was seen here yesterday as well for same states did not have chest pain then AL MEDIA SENIOR ASSOCIATE AL MEDIA SENIOR ASSOCIATE documented in this encounter Plan of Treatment Not on file documented as of this encounter Goals Goal Patient Goal Type Associated Problems Recent Progress Patient-Stated? Author Pain Management General On track( 025 12:40 PM SOCIAL MEDIA SENIOR ASSOCIATE) Yes Juhi Benson, RN Note: Goal Statement: [...] Diagnosis Comments XR CHEST 2 VIEWS STAT 05/20/2024 9:30 AM SOCIAL MEDIA SENIOR ASSOCIATE EXTRA TUBE STAT 05/20/2024 9:09 AM SOCIAL MEDIA SENIOR ASSOCIATE EXTRA GREEN TOP (LITHIUM HEPARIN) TUBE STAT 05/20/2024 9:09 AM SOCIAL MEDIA SENIOR ASSOCIATE RBC AND PLATELET MORPHOLOGY STAT 05/20/2024 9:09 AM SOCIAL MEDIA SENIOR ASSOCIATE CBC WITH PLATELETS AND DIFFERENTIAL STAT 05/20/2024 9:09 AM SOCIAL MEDIA SENIOR ASSOCIATE CBC WITH PLATELETS & DIFFERENTIAL STAT 05/20/2024 9:09 AM SOCIAL MEDIA SENIOR ASSOCIATE RETICULOCYTE COUNT STAT 05/20/2024 9: 09 AM SOCIAL MEDIA SENIOR ASSOCIATE BASIC METABOLIC PANEL STAT 05/20/2024 9:09 AM SOCIAL MEDIA SENIOR ASSOCIATE BASIC METABOLIC PANEL STAT 05/20/2024 8:21 AM SOCIAL MEDIA SENIOR ASSOCIATE ECG 12-LEAD WITH MUSE [facility] STAT 05/20/2024 7:36 AM SOCIAL MEDIA SENIOR ASSOCIATE documented in this encounter Results * Chest XR, PA & LAT (05/20/2024 9:30 AM SOCIAL MEDIA SENIOR ASSOCIATE) Anatomical Region Laterality Modality Chest Digital Radiogra phy 05/20/2024 9:30 AM SOCIAL MEDIA SENIOR ASSOCIATE Impressions 05/20/2024 9:38 AM SOCIAL MEDIA SENIOR ASSOCIATE IMPRESSION: Slightly increased bilateral mid to lower lung patchy opacities which may reflect atelectatic changes or pneumonic infiltrates. No pleural effusion. Normal heart size. Multiple H-shaped thoracic vertebra consistent with the history of sickle cell disease. Narrative 05/20/2024 9:38 AM SOCIAL MEDIA SENIOR ASSOCIATE EXAM: XR CHEST 2 VIEWS LOCATION: [facility] DATE: 05/20/2024 INDICATION: Chest pain, sickle cell patient COMPARISON: Chest x-ray 05/08/2024 Procedure Note Twin Marin MD - 05/20/2024 EXAM: XR CHEST 2 VIEWS LOCATION: [facility] DATE: 05/20/2024 INDICATION: Chest pain, sickle cell patient COMPARISON: Chest x-ray 05/08/2024 IMPRESSION: Slightly increased bilateral mid to lower lung patchyopacities which may reflect atelectatic changes or pneumonic infiltrates.No pleural effusion. Normal heart size. Multiple H-shaped thoracicvertebra consistent with the history of sickle cell disease. Stiven Madsen MD IM DIAGNOSTIC IMAGING ORDERA BLES Final Result * (ABNORMAL) RBC and Platelet Morphology (05/20/2024 9:09 AM SOCIAL MEDIA SENIOR ASSOCIATE) Pathologist [facility] Emergency Department RBC Morphology Confirmed RBC Indices 05/20/2024 9:47 AM SOCIAL MEDIA SENIOR ASSOCIATE [facility] Platelet Assessment Automated Count Confirmed. Platelet morphology is normal. Automated Count Confirmed. Platelet morphology is normal. JARET 05/20/2024 9:47 AM SOCIAL MEDIA SENIOR ASSOCIATE [facility] Polychromasia Slight(A) None Seen JARET 05/20/2024 9:47 AM [facility] Reactive Lymphocytes Present(A) None Seen JARET 05/20/2024 9:47 AM [facility] Sickle Cells Moderate(A) None Seen JARET 05/20/2024 9:47 AM [facility] Target Cells Slight(A) None Seen JARET 05/20/2024 9:47 AM [facility] Blood VENOUS LINE / Unknown Venipuncture / Unknown 05/20/2024 9:09 AM SOCIAL MEDIA SENIOR ASSOCIATE 05/20/2024 9:14 AM [facility]UST us Stiven Madsen MD LAB - BLOOD ORDERABLES Final Result [facility] [address] [place] [address], [facility] * (ABNORMAL) Basic metabolic panel (05/20/2024 9:09 AM RUST) Sodium 137 135 - 145 mmol/L 05/20/2024 9:42 AM [facility] Potassium 4.8 3.4 - 5.3 mmol/L 05/20/2024 9:42 AM [facility] Chloride 105 98 - 107 mmol/L 05/20/2024 9:42 AM [facility] Carbon Dioxide (CO2) 22 22 - 29 mmol/L 05/20/2024 9:42 AM [facility] Anion Gap 10 7 - 15 mmol/L 05/20/2024 9:42 AM [facility] Urea Nitrogen 7.4 6.0 - 20.0 mg/dL 05/20/2024 9:42 AM [facility] Creatinine 0.82 0.51 - 0.95 mg/dL 05/20/2024 9:42 AM [facility] GFR Estimate >90 >60 mL/min/1.7 3m2 05/20/2024 9:42 AM [facility] Comment:eGFR calculated usin 2020 CKD-EPI equation. Calcium 9.3 8.8 - 10.4 mg/dL 05/20/2024 9:42 AM [facility] Comment:Reference intervals for this test were updated on 11/09/2023 to reflect our healthy population more accurately. There may be differences in the flagging of prior results with similar values performed with this method. Those prior results can be interpreted in the context of the updated reference intervals. Glucose 107(H) 70 - 99 mg/dL 05/20/2024 9:42 AM [facility] Blood VENOUS LINE / Unknown Venipuncture / Unknown 05/20/2024 9:09 AM SOCIAL MEDIA SENIOR ASSOCIATE 05/20/2024 9:14 AM SOCIAL MEDIA SENIOR ASSOCIATE Stiven Madsen MD LAB - BLOOD ORDERABLES Final Result Performing Organization Address City/[facility]/ZIP Co de Phone Number [facility] [address] [place] [address] [place] [address], [facility] * Extra Green Top ([place] Heparin) Tube (05/20/2024 9:09 AM SOCIAL MEDIA SENIOR ASSOCIATE) Pathologist [facility] Hold Specimen JI 05/20/2024 10:16 AM [facility] Blood VENOUS LINE / Unknown Venipuncture / Unknown 05/20/2024 9:09 AM SOCIAL MEDIA SENIOR ASSOCIATE 05/20/2024 9:14 AM SOCIAL MEDIA SENIOR ASSOCIATE Deshawn Arredondo MD LAB - BLOOD ORDERABLES Liss l Result Performing Organization Address [facility] Co de Phone Number [facility] [address] [place] [address] * (ABNORMAL) CBC with platelets and differential (05/20/2024 9:09 AM SOCIAL MEDIA SENIOR ASSOCIATE) WBC Count 16.0(H) 4.0 - 11.0 10e3/uL 05/20/2024 9:47 AM [facility] RBC Count 2.57(L) 3.80 - 5.20 10e6/uL 05/20/2024 9:47 AM [facility] Hemoglobin 8.4(L) 11.7 - 15.7 g/dL 05/20/2024 9:47 AM [facility] Hematocrit 23.7(L) 35.0 - 47.0 % 05/20/2024 9:47 AM [facility] MCV 92 78 - 100 fL 05/20/2024 9:47 AM [facility] MCH 32.7 26.5 - 33.0 pg 05/20/2024 9:47 AM [facility] MCHC 35.4 31.5 - 36.5 g/dL 05/20/2024 9:47 AM [facility] RDW 22.8(H) 10.0 - 15.0 % 05/20/2024 9:47 AM [facility] Platelet Count 541(H) 150 - 450 10e3/uL 05/20/2024 9:47 AM [facility] % Neutrophils 59 % 05/20/2024 9:47 AM [facility] % Lymphocytes 23 % 05/20/2024 9:47 AM [facility] % Monocytes 15 % 05/20/2024 9:47 AM [facility] % Eosinophils 2 % 05/20/2024 9:47 AM [facility] % Basophils 1 % 05/20/2024 9:47 AM [facility] % Immature Granulocytes 1 % 05/20/2024 9:47 AM [facility] NRBCs per 100 WBC 2(H) <1 /100 025 9:47 AM [facility] Absolute Neutrophils 9.4(H) 1.6 - 8.3 10e3/uL 05/20/2024 9:47 AM [facility] Absolute Lymphocytes 3.6 0.8 - 5.3 10e3/uL 05/20/2024 9:47 AM [facility] Absolute Monocytes 2.4(H) 0.0 - 1.3 10e3/uL 05/20/2024 9:47 AM [facility] Absolute Eosinophils 0.3 0.0 - 0.7 10e3/uL 05/20/2024 9:47 AM [facility] Absolute Basophils 0.2 0.0 - 0.2 10e3/uL 05/20/2024 9:47 AM [facility] Absolute Immature Granulocytes 0.2 <=0.4 10e3/uL 05/20/2024 9:47 AM [facility] Absolute NRBCs 0.2 10e3/uL 05/20/2024 9:47 AM [facility] Blood VENOUS LINE / Unknown Venipuncture / Unknown 05/20/2024 9:09 AM [facility] 05/20/2024 9:14 AM SOCIAL MEDIA SENIOR ASSOCIATE Stiven Madsen MD LAB - BLOOD ORDERABLES Final Result Performing Organization Address [facility] de Phone Number [facility] [address] [place] [address] * (ABNORMAL) Reticulocyte count (05/20/2024 9:09 AM SOCIAL MEDIA SENIOR ASSOCIATE) % Reticulocyte 25.1(H) 0.5 - 2.0 % 05/20/2024 9:19 AM [facility] Absolute Reticulocyte 0.646(H) 0.025 - 0.095 10e6/uL 05/20/2024 9:19 AM [facility] Blood VENOUS LINE / Unknown Venipuncture / Unknown 05/20/2024 9:09 AM SOCIAL MEDIA SENIOR ASSOCIATE 05/20/2024 9:14 AM SOCIAL MEDIA SENIOR ASSOCIATE Stiven Madsen MD LAB - BLOOD ORDERABLES Final Result Performing Organization Address [facility] de Phone Number [address] [place] [address], [facility] * (ABNORMAL) Basic metabolic panel (05/20/2024 8:21 AM RUST) Pathologist [facility] Sodium 136 135 - 145 mmol/L 05/20/2024 8:47 AM [facility] Potassium 5.1 3.4 - 5.3 mmol/L 05/20/2024 8:47 AM [facility] Chloride 105 98 - 107 mmol/L 05/20/2024 8:47 AM [facility] Carbon Dioxide (CO2) 21(L) 22 - 29 mmol/L 05/20/2024 8:47 AM [facility] Anion Gap 10 7 - 15 mmol/L 05/20/2024 8:47 AM [facility] Urea Nitrogen 7.5 6.0 - 20.0 mg/dL 05/20/2024 8:47 AM [facility] Creatinine 0.84 0.51 - 0.95 mg/dL 05/20/2024 8:47 AM [facility] GFR Estimate >90 >60 mL/min/1.7 3m2 05/20/2024 8:47 AM [facility] Comment:eGFR calculated us2020 CKD-EPI equation. Calcium 9.1 8.8 - 10.4 mg/dL 05/20/2024 8:47 AM [facility] Comment:Reference intervals for this test were updated on 11/09/2023 to reflect our healthy population more accurately. There may be differences in the flagging of prior results with similar values performed with this method. Those prior results can be interpreted in the context of the updated reference intervals. Glucose 95 70 - 99 mg/dL 05/20/2024 8:47 AM SOCIAL MEDIA SENIOR ASSOCIATE [facility] Blood VENOUS LINE / Unknown Venipuncture / Unknown 05/20/2024 8:21 AM SOCIAL MEDIA SENIOR ASSOCIATE 05/20/2024 8:31 AM SOCIAL MEDIA SENIOR ASSOCIATE us Stiven Madsen MD LAB - BLOOD ORDERABLES Final Result Performing Organization Address [facility]/ZIP Co de Phone Number [facility] [address] [place] [address], [facility] * ECG 12-LEAD WITH MUSE (LHE) (05/20/2024 7:36 AM SOCIAL MEDIA SENIOR ASSOCIATE) Systolic Blood Pressure 111 mmHg RADIOLOGY RESULTS Diastolic Blood Pressure 56 mmHg RADIOLOGY RESULTS Ventricular Rate 86 BPM RAD IOLOGY RESULTS Atrial Rate 86 BPM RADIOLOG Y RESULTS UT Interval 154 ms RADIOLOG Y RESULTS QRS Duration 78 ms RADIOLO GY RESULTS QT 370 ms RADIOLOGY RESULTS QTc 442 ms RADIOLOGY RESULTS P Malcom 18 degrees RADIOLOGY RESULTS R AXIS 55 degrees RADIOLOGY RESULTS T Malcom 25 degrees RADIOLOGY RESULTS Interpretation ECG Sinus rhythm Nonspecific T wave abnormality Abnormal ECG When compared with ECG of 14-May-2024 22:12, Nonspecific T wave abnormality now evident in Inferior leads Confirmed by SEE ED PROVIDER NOTE FOR, ECG INTERPRETATION (4000), production editor Neeraj Allison ([id number]) on 05/20/2024 7:48:17 AM RADIOLOGY RESULTS 05/20/2024 7:36 AM SOCIAL MEDIA SENIOR ASSOCIATE 05/20/2024 7:48 AM SOCIAL MEDIA SENIOR ASSOCIATE us Deshawn Arredondo MD ECG ORDERABLES Edited [...] 25 mg 25 mg, Oral, ONCE, On 05/20/24 at 1000, For 1 dose $Given 05/20/2024 9:59 AM SOCIAL MEDIA SENIOR ASSOCIATE 25 mg HYDROmorphone (DILAUDID) injection 2 mg 2 mg, Intravenous, EVERY HOUR, First dose on 05/20/24 at 0800, For 3 doses $Given 05/20/2024 10:58 AM SOCIAL MEDIA SENIOR ASSOCIATE 2 mg $Given 05/20/2024 9:56 AM SOCIAL MEDIA SENIOR ASSOCIATE 2 mg $Given 05/20/2024 8:22 AM SOCIAL MEDIA SENIOR ASSOCIATE 2 mg lactated ringers infusion at 500 mL/hr, Intravenous, CONTINUOUS, Starting on 05/20/24 at 0800, Until 05/20/24 at 0959 Restarted 05/20/2024 9:30 AM SOCIAL MEDIA SENIOR ASSOCIATE 500 mL/hr $New Bag 05/20/2024 8:22 AM SOCIAL MEDIA SENIOR ASSOCIATE 500 mL/hr ondansetron (ZOFRAN) injection 8 mg 8 mg, Intravenous, EVERY 6 HOURS PRN, nausea, vomiting, Administer over 2-5 Minutes, Starting on 05/20/24 at 0744 $Given 05/20/2024 8:22 AM SOCIAL MEDIA SENIOR ASSOCIATE 8 mg documented in this encounter Active and Recently Administered Medications Times are shown in SOCIAL MEDIA SENIOR ASSOCIATE. Scheduled Medication Order 05/18/2024 05/19/2024 05/20/2024 diphenhydrAMINE (BENADRYL) capsule 25 mg (COMPLETED) 25 mg, Oral, ONCE, On 05/20/24 at 1000, For 1 dose 0959 ($Given - Provi nas: Suzanne Cadte RN) HYDROmorphone (DILAUDID) injection 2 mg (COMPLETED) 2 mg, Intravenous, EVERY HOUR, First dose on 05/20/24 at 0800, For 3 doses 0822 ($Given - Provi nas: Yanna Huerta RN)0956 ($Given - Provider: Suzanne Cadet RN)1058 ($Given - Provider: Suzanne Cadet RN) Continuous Medication Order 05/18/2024 05/19/2024 05/20/2024 lactated ringers infusion at 500 mL/hr, Intravenous, CONTINUOUS, Starting on 05/20/24 at 0800, Until 05/20/24 at 0959 0822 ($New Bag - Pro vider: Yanna Huerta RN)0837 (Paused - Provider: Yanna Huerta RN - Comment: no IV access)0930 (Restarted - Provider: Suzanne Cadet RN)1108 (Stopped - Provider: Suzanne Cadet RN) PRN Medication Order 05/18/2024 05/19/2024 05/20/2024 ondansetron (ZOFRAN) injection 8 mg 8 mg, Intravenous, EVERY 6 HOURS PRN, nausea, vomiting, Administer over 2-5 Minutes, Starting on 05/20/24 at 0744 0822 ($Given - Provi nas: Yanna Huerta RN) documented in this encounter Care Teams Rehab Rn Relationship Specialty Start Date End Date No Ref-Primary, Physician PCP - General 03/15/24 06/17/24 Mor Ramsey Medical Student 04/03/24 Case Samuel MD [address] [place] [address] [address] [place] [address] Assigned Pediatric Specialist Provider 05/18/24 documented as of this encounter
--- OUTSIDE RECORDS SUMMARY | 2024-06-21 22:19 | XMS_ITS ---
Author Organization [facility] Address [address] [place] [address] Care Team Providers Care Monotypist Name Role Phone Roxy Mor Unavailable Unavailable Case Samuel MD Unavailable [phone] Juhi Benson RN Unavailable Unavailable Veronica Joseph MD Primary Care Provider [phone] Transitional Care Management Status:Enrolled (Active) Start date:06/16/2024 Enrollment date:06/16/2024 Continued Care and Services Coordination
--- OUTSIDE RECORDS SUMMARY | 2024-06-21 22:19 | XMS_ITS | Encounter Summary ---
Author Organization [facility] Address [address] [place] [address]. 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 Author Pain Management General On track( 025 12:40 PM FRONT DESK OFFICER) Yes Juhi Benson, RN Note: Goal Statement: [...] on filedocumented in this encounter Care Teams Executive Director Sheltered Workshop Relationship Specialty Start Date End Date No Ref-Primary, Physician PCP - General 03/15/24 06/17/24 Mor Ramsey Medical Student 04/03/24 Case Samuel MD [address] [place] [address] [address] [place] [address] Assigned Pediatric Specialist Provider 05/18/24 documented as of this encounter
--- OUTSIDE RECORDS SUMMARY | 2024-06-21 22:19 | XMS_ITS | Encounter Summary ---
Author Organization [facility] Address [address] [place] [id number] Care Team Providers Care Development Educator Name Role Phone No Ref-Primary, Physician Primary Care Provider Mor Ramsey Unavailable Unavailable Case Samuel MD Unavailable [phone] Reason for Visit * Reason Onset Date Comments Refill Request 05/22/2024 Encounter Details Date Type Department Care Team ([facility] st Contact Info) Description 05/22/2024 MyC Refill [facility] [address] [place] [address] Case Samuel MD [address] [place] [address] [address] [place] [address] Refill Request Social History Tobacco [...] in an abandoned building, in an overnight chcf, or couch-surfing.) Yes 04/09/2024 Are you worried [...] on file Legal Sex Female 8:25 AM CHARGE ENTRY Gender Identity Not on file Sexual Orientation Not on file documented as of this encounter Miscellaneous Notes * Telephone Encounter - Hawa Gordon RN - 05/24/2024 10:37 AM CST Images from the original note were not included. Narcotic Refill Request Medication(s) requested: Hydromorphone Person Requesting Refill:Gianna What pain is the medication treating: sickle cell pain in chest. For past week. Rating 4/10 Having some sweats at night, go away when wake up. Denies fever, SOB How is the medication being taken?:1 tablet every 3 to 4 hours. Does pt have enough for today? none Is pain being adequately controlled on the current regimen?: okay Experiencing any side effects from medication?: denies Date of most recent appointment: In ED on 05/23/2024 Date of most recent appointment: 05/01/2024 Dr. samuel Any No Show Visits:05/01/2024 Dr samuel Next appointment: 05/29/2024 Dr Samuel Last fill date and by whom: Dr. Samuel on 05/01/2024 [employer] Reviewed: Yes Send to provider: Dr. Samuel and ESTEVAN Reynaag . GE ENTRY documented in this encounter Plan of Treatment Not on file documented as of this encounter Goals Goal Patient Goal Type Associated Problems Recent Progress Patient-Stated? Author Pain Management General On track( 025 12:40 PM CHARGE ENTRY) Yes Juhi Benson, SOFIA Note: Goal Statement: [...] crisis documented in this encounter Care Teams Development Educator Relationship Specialty Start Date End Date No Ref-Primary, Physician PCP - General 03/15/24 06/17/24 Mor Ramsey Medical Student 04/03/24 Case Samuel MD [address] [place] [address] [address] [place], [place] [id number] Assigned Pediatric Specialist Provider 05/18/24 documented as of this encounter
--- OUTSIDE RECORDS SUMMARY | 2024-06-21 22:19 | XMS_ITS | Encounter Summary ---
Author Organization [facility] Address [address] [place] [id number] Care Team Providers Care Regulation Supervisor Name Role Phone No Ref-Primary, Physician Primary Care Provider Mor Ramsey Unavailable Unavailable Case Samuel MD Unavailable [phone] Reason for Visit * Reason Comments Sickle Cell Pain Crisis Encounter Details Date Type Department Care Team (Late st Contact Info) Description 05/19/2024 2:10 AM REMOTE MEDICAL CODER - 05/19/2024 6:06 AM [facility] Emergency [facility] Emergency Room [facility] [place] [address] Marilia Summers MD [address] [place] [address] [id number] Sickle cell disease with crisis (H) Discharge [...] on file Legal Sex Female 8:25 AM REMOTE MEDICAL CODER Gender Identity Not on file Sexual Orientation Not on file documented as of this encounter Last Filed Vital Signs Vital Sign Reading Time Taken Comments Blood Pressure 110/60 05/19/2024 5:30 AM [facility]OTE [facility] C[facility]ER Pulse 89 05/19/2024 5:30 AM [facility]OTE MEDICAL COD[facility] Temperature 36.9 C (98.4 F) 05/19/2024 2:16 AM REMOTE MEDICAL CODER Respiratory Rate 16 05/19/2024 2:16 AM [facility]OTE MEDICAL CODER Oxygen Saturation 95% 05/19/2024 5:30 AM REMOTE MEDICAL CODER Inhaled Oxygen Concentration - - Weight 51.7 kg (114 lb) 05/19/2024 2:16 AM REMOTE MEDICAL CODER Height 160 cm (5' 3) 05/19/2024 2:16 AM REMOTE MEDICAL CODER Body Mass Index 20.19 05/19/2024 2:16 AM REMOTE MEDICAL CODER documented in this encounter Discharge Instructions * Discharge Instructions* Marilia Summers MD - 05/19/2024 6:02 AM REMOTE MEDICAL CODER Keep your hematology appointment for the third. Talk with your oncologist about your pain control and what you should do about it while you wait for that appointment. Also you are still a bit more anemic than your principal web developer would like. TE MEDICAL CODER * Attachments The following attachments cannot be sent through Care Everywhere. * Sickle Cell Crisis (Indonesian) documented in this encounter Medications at Time [...] of this encounter ED Notes * Marilia Summers MD - 05/19/2024 2:30 AM CST Emergency Department Encounter Evaluation Date & Time: 05/19/2024 2:10 AM CHIEF COMPLAINT: Sickle Cell Pain Crisis Triage Note:To ED per POV C/o being in sickle cell crisis which awoke her from sleep. 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 C/o 10 generalized back pain Triage Assessment (Adult) Row Name 05/19/24 0217 Triage Assessment Airway WDL WDL Respiratory WDL Respiratory WDL WDL Skin Circulation/Temperature WDL Skin Circulation/Temperature WDL WDL Cardiac WDL Cardiac WDL rhythm Pulse Rate & Regularity tachycardic Peripheral/Neurovascular WDL Peripheral Neurovascular WDL WDL Cognitive/Neuro/Behavioral WDL Cognitive/Neuro/Behavioral WDL WDL FINAL IMPRESSION: ICD-10-CM 1. Sickle cell disease with crisis (H) D57.00 Impression and Plan ED COURSE & MEDICAL DECISION MAKIN:30 AM I introduced myself to the patient, obtained patient history, performed a physical exam, and discussed plan for ED workup including potential diagnostic laboratory/imaging studies and interventions. ED Course as of 05/19/24605May 19, 2024 024 Patient presents with all over body pain. She denies any feelings of shortness of breath or chest pain and denies that this feels like a chest syndrome to her. She does tell me that her home regimen is to take Dilaudid at onset and see if that works, but she did did not have time to do that tonight before coming in when she tells me the timeframe which she confirms. She does however state that she still has Dilaudid available to her at home. I did review her chart and found her oncology note that she referred to from May 01. They do have a starting recommendation for her sickle crisisin the emergency department that I will follow. They do note that this is a starting point as she is a new patient and so if the provider feels that more medication is needed to adjust as they feel necessary but message the oncology team with their impression and treatment. For emergency department care this is the recommendation treatment plan:Acute Pain Crisis Treatment: ?? ER/Acute Care/Infusion Clinic: ?? Hydromorphone 2 mg IVP/SC Q1H X 3 doses ?? LR 500 ml/hr x 2 hours (1 L total) ?? Toradol 30 mg IV x1 ?? Other: Zofran 8 mg IV ?? Inpatient: ?? Opioid: Hydromorphone 2 mg IV Q3H scheduled--titrate within 24-48 hours ?? LR at maintenance rate x 1-2 days ?? Toradol 30 mg IV q6h x 5 days ?? Other Medications: Zofran, Oral Benadryl for anxiety ?? Supportive Care: Docusate, Senna PRN [phone] I reviewed the [facility] database for prescriptions. Her last fill was on May 09 which was an 8-day supply of Dilaudid. As mentioned the patient states she has not yet run out, but we are now at 10 days after this. It looks like she has been in the ER multiple times since then for acute pain crisis. High ER use currently. Patient states she is continuing to work with her oncologist for possible planned plasmapheresis. 0437 Her initial blood work shows a great reticulocyte count. Her hemoglobin is at 7.7 just below what oncology wanted for her baseline hemoglobin. Bilirubin is as expected slightly above normal. Will compare to her recent values to see if there are any significant changes. 0602 Patient asked for her last dose of Dilaudid. Almost as soon as she was given the last dose of Dilaudid she has to be discharged. I did want her to stay for at least 20 minutes to make sure it does not make her too sedate but the patient then said her child is crying in the car and she needed to leave. She did not wait for me to write discharge instructions. Apparently her significant other had come with a car and the child to pick her up. She was very cooperative while here. She did not appear to be in acute distress at any point. I did review her previous visits and with her only hospitalization she also left AGAINST MEDICAL ADVICE for childcare issues unfortunately. We did discuss that she is still a bit more anemic than her principal web developer would like and so I encouraged her to follow-up with hematology oncology while waiting for her appointment which she does confirm is coming up on May 29. At the conclusion of the encounter I discussed the results of all the tests and the disposition. The questions were answered. The patient or family acknowledged understanding and was agreeable with the care plan. 0 minutes of critical care time MEDICATIONS GIVEN IN THE EMERGENCY DEPARTMENT: Medications lactated ringers BOLUS 1,000 mL (0 mLs Intravenous Stopped 05/19/24 0544) HYDROmorphone (DILAUDID) injection 2 mg (2 mg Intravenous $Given 05/19/24 0530) diphenhydrAMINE (BENADRYL) injection 25 mg (25 mg Intravenous $Given 05/19/24 0310) ondansetron (ZOFRAN) injection 8 mg (8 mg Intravenous $Given 05/19/24 0517) diphenhydrAMINE (BENADRYL) injection 25 mg (25 mg Intravenous $Given 05/19/24 0517) NEW PRESCRIPTIONS STARTED AT TODAY'S ED VISIT: Discharge Medication List as of 05/19/2024 6:06 AM HPI The history is provided by the patient. No manager language was used. Gianna Hernández is a 29 year old female with a pertinent history of sickle cell disease who presents to this ED by private car with family for evaluation of sickle cell pain. The patient reports waking up around 0200 with pain in her extremities, joints, and back that feelssimilar to the pain she gets with her sickle cell crisis. She describes the pain as a stiffness. She is prescribed dilaudid (4 mg), managed by hematology/oncology, for daily use for her sick cell. She did not take any dilaudid at home prior to presenting to the ED. She is not having any chest pain or shortness of breath. She reports she has been having night sweats the past couple days but has not had any fevers. She denies any history of bladder infections. She gets irregular periods but did have a menstrual period last week. Per chart review, the patient has had 34 ED visits since December 2023 for sickle cell pain crisis. On 05/08/24 she contacted her hematology/oncology team for a refill of hydromorphone, refill approved. Oncology recommended ED treatment: Hydromorphone 2 mg IVP/ Q1H x 3 doses, LR 500 midline/hr x 2 hours (1 L total), Toradol 30 mg IV x1, Zofran 8 mg IV. REVIEW OF SYSTEMS: Review of Systems Constitutional: Positive for diaphoresis. Negative for fever. Musculoskeletal: Positive for arthralgias, back pain and myalgias. remainder of systems are all otherwise negative. [...] Temp src Pulse Resp SpO2 Height Weight 05/19/24 0530 110/60 -- -- 89 -- 95 % -- -- 05/19/24 0515 -- -- -- 84 -- 96 % -- -- 01/24/25 0500 -- -- -- 83 -- 95 % -- -- 05/19/24 0315 -- -- -- 88 -- 100 % -- -- 05/19/24 0300 -- -- -- 93 -- -- -- -- 05/19/24 0217 -- -- -- 99 -- 98 % -- -- 05/19/24 0216 120/58 98.4 ??F (36.9 ??C) Oral 102 16 96 % 1.6 m (5' 3) 51.7 kg (114 lb) PHYSICAL EXAM: Constitutional: Sitting upright in bed HENT: Normocephalic, posterior pharynx wnl Eyes: PERRL, EOMI, Conjunctiva normal, No discharge, no scleral icterus. Respiratory: Breathing easily, clear to auscultation Cardiovascular: Slightly tachycardic, regular rhythm, nl s1s2 0 murmurs, rubs, or gallops. Peripheral pulses dp, pt, and radial are wnl. No peripheral edema GI: Bowel sounds normal, Soft, No tenderness, No flank tenderness, nondistended. :No CVA tenderness. Musculoskeletal: Moves all extremities. No erythematous or swollen major joints, Neurologic: Alert & oriented x 3, Normal motor function, Normal sensory function, No focal deficits noted. Normal speech. Psychiatric: Affect normal, Judgment normal, Mood normal. Results LAB AND RADIOLOGY: All pertinent labs reviewed and interpreted Results for orders placed or performed during the hospital encounter of 05/19/24 Reticulocyte count Status: Abnormal Result Value Ref Range % Reticulocyte 23.3 (H) 0.5 - 2.0 % Absolute Reticulocyte 0.550 (H) 0.025 - 0.095 10e6/uL Basic metabolic panel Status: Abnormal Result Value Ref Range Sodium 137 135 - 145 mmol/L Potassium 4.2 3.4 - 5.3 mmol/L Chloride 107 98 - 107 mmol/L Carbon Dioxide (CO2) 20 (L) 22 - 29 mmol/L Anion Gap 10 7 - 15 mmol/L Urea Nitrogen 11.2 6.0 - 20.0 mg/dL Creatinine 0.81 0.51 - 0.95 mg/dL GFR Estimate >90 >60 mL/min/1.73m2 Calcium 9.1 8.8 - 10.4 mg/dL Glucose 99 70 - 99 mg/dL Hepatic function panel Status: Abnormal Result Value Ref Range Protein Total 7.9 6.4 - 8.3 g/dL Albumin 4.3 3.5 - 5.2 g/dL Bilirubin Total 2.6 (H) <=1.2 mg/dL Alkaline Phosphatase 128 40 - 150 U/L AST 67 (H) 0 - 45 U/L ALT 39 0 - 50 U/L Bilirubin Direct 0.65 (H) 0.00 - 0.30 mg/dL CK total Status: Abnormal Result Value Ref Range CK 240 (H) 26 - 192 U/L HCG QUALitative (blood) Status: Normal Result Value Ref Range hCG Serum Qualitative Negative Negative Narrative Lot#: [id number] Exp: 2025-09-28 CBC with platelets and differential Status: Abnormal Result Value Ref Range WBC Count 14.5 (H) 4.0 - 11.0 10e3/uL RBC Count 2.45 (L) 3.80 - 5.20 10e6/uL Hemoglobin 7.7 (L) 11.7 - 15.7 g/dL Hematocrit 22.7 (L) 35.0 - 47.0 % MCV 93 78 - 100 fL MCH 31.4 26.5 - 33.0 pg MCHC 33.9 31.5 - 36.5 g/dL RDW 23.0 (H) 10.0 - 15.0 % Platelet Count 518 (H) 150 - 450 10e3/uL Manual Differential Status: Abnormal Result Value Ref Range % Neutrophils 66 % % Lymphocytes 19 % % Monocytes 11 % % Eosinophils 2 % % Basophils 2 % Absolute Neutrophils 9.6 (H) 1.6 - 8.3 10e3/uL Absolute Lymphocytes 2.8 0.8 - 5.3 10e3/uL Absolute Monocytes 1.6 (H) 0.0 - 1.3 10e3/uL Absolute Eosinophils 0.3 0.0 - 0.7 10e3/uL Absolute Basophils 0.3 (H) 0.0 - 0.2 10e3/uL RBC Morphology Confirmed RBC Indices Platelet Assessment Automated Count Confirmed. Platelet morphology is normal. Automated Count Confirmed. Platelet morphology is normal. Elliptocytes Slight (A) None Seen RBC Fragments Rare (A) None Seen Polychromasia Slight (A) None Seen Sickle Cells Slight (A) None Seen Target Cells Slight (A) None Seen CBC with platelets differential Status: Abnormal Narrative The following orders were created for panel order CBC with platelets differential. Procedure Abnormality Status --------- ------ CBC with platelets and d...[[id number]] Abnormal Final result Manual Differential[[id number]] Abnormal Final result Please view results for these tests on the individual orders. [facility] System Documentation Medical Decision Making Obtained supplemental [...] with other provider:Did you involve another provider (digital media sales consultant, , pharmacy, etc.)?: I discussed the care with another health care provider, see documentation for details. Discharge. I recommended the patient continue their current prescription strength medication(s): . See documentation for any additional details. I, Darron Garcia, am serving as a scribe to document services personally performed by Dr. Marilia Summers MD based on my observations and the provider's statements to me. I, Marilia Summers MD, attest that Darron Garcia is acting in a scribe capacity, has observed my performance of the services and has documented them in accordance with my direction. Marilia Summers MD Emergency Medicine [facility] EMERGENCY ROOM Marilia Summers MD 05/19/24 0607 TE MEDICAL CODER * Moy Stewart RN - 05/19/2024 2:18 AM CST To ED per POV C/o being in sickle cell crisis which awoke her from sleep. 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 C/o 9/10 generalized back pain Triage Assessment (Adult) Row Name 05/19/24 0217 Triage Assessment Airway WDL WDL Respiratory WDL Respiratory WDL WDL Skin Circulation/Temperature WDL Skin Circulation/Temperature WDL WDL Cardiac WDL Cardiac WDL rhythm Pulse Rate & Regularity tachycardic Peripheral/Neurovascular WDL Peripheral Neurovascular WDL WDL Cognitive/Neuro/Behavioral WDL Cognitive/Neuro/Behavioral WDL WDL TE MEDICAL CODER documented in this encounter Plan of Treatment Not on file documented as of this encounter Goals Goal Patient Goal Type Associated Problems Recent Progress Patient-Stated? Author Pain Management General On track( 025 12:40 PM REMOTE MEDICAL CODER) Yes Juhi Benson, RN Note: Goal Statement: [...] Date/Time Associated Diagnosis Comments MANUAL DIFFERENTIAL STAT 05/19/2024 3 :05 AM REMOTE MEDICAL CODER CBC WITH PLATELETS AND DIFFERENTIAL STAT 05/19/2024 3:05 AM REMOTE MEDICAL CODER CBC WITH PLATELETS & DIFFERENTIAL STAT 05/19/2024 3:05 AM [facility]OTE [facility]ICAL C[facility]ER RETICULOCYTE COUNT STAT 05/19/2024 3: 05 AM [facility]OTE [facility]ICAL C[facility]ER HEPATIC FUNCTION PANEL STAT 05/19/2024 3:05 AM REMOTE MEDICAL CODER HCG QUALITATIVE STAT 05/19/2024 3:05 AM REMOTE MEDICAL CODER CK TOTAL STAT 05/19/2024 3:05 AM REMOTE MEDICAL CODER BASIC METABOLIC PANEL STAT 05/19/2024 3:05 AM REMOTE MEDICAL CODER documented in this encounter Results * (ABNORMAL) Manual Differential (05/19/2024 3:05 AM [facility]) Pathologist [facility] % Neutrophils 66 % JARET 05/19/2024 4:12 AM [facility] % Lymphocytes 19 % JARET 05/19/2024 4:12 AM [facility] % Monocytes 11 % JARET 05/19/2024 4:12 AM [facility] % Eosinophils 2 % JARET 05/19/2024 4:12 AM [facility] % Basophils 2 % JARET 05/19/2024 4:12 AM [facility] Absolute Neutrophils 9.6(H) 1.6 - 8.3 10e3/uL JARET 05/19/2024 4:12 AM [facility] Absolute Lymphocytes 2.8 0.8 - 5.3 10e3/uL JARET 05/19/2024 4:12 AM [facility] Absolute Monocytes 1.6(H) 0.0 - 1.3 10e3/uL JARET 05/19/2024 4:12 AM [facility] Absolute Eosinophils 0.3 0.0 - 0.7 10e3/uL JARET 05/19/2024 4:12 AM [facility] Absolute Basophils 0.3(H) 0.0 - 0.2 10e3/uL JARET 05/19/2024 4:12 AM [facility] RBC Morphology Confirmed RBC Indices JARET 05/19/2024 4:12 AM [facility] Platelet Assessment Automated Count Confirmed. Platelet morphology is normal. Automated Count Confirmed. Platelet morphology is normal. JARET 05/19/2024 4:12 AM [facility] Elliptocytes Slight(A) None Seen JARET 05/19/2024 4:12 AM [facility] RBC Fragments Rare(A) None Seen JARET 05/19/2024 4:12 AM [facility] Polychromasia Slight(A) None Seen JARET 05/19/2024 4:12 AM [facility] Sickle Cells Slight(A) None Seen JARET 05/19/2024 4:12 AM [facility] Target Cells Slight(A) None Seen JARET 05/19/2024 4:12 AM [facility] Blood VENOUS LINE / Unknown Venipuncture / Unknown 05/19/2024 3:05 AM [facility] 05/19/2024 3:18 AM REMOTE MEDICAL CODER us Marilia Summers MD LAB - BLOOD ORDERABLES Final Result [facility] [address] [place] [address], [facility] * (ABNORMAL) CBC with platelets and differential (05/19/2024 3:05 AM REMOTE MEDICAL CODER) [facility] WBC Count 14.5(H) 4.0 - 11.0 10e3/uL 05/19/2024 4:12 AM [facility] RBC Count 2.45(L) 3.80 - 5.20 10e6/uL 05/19/2024 4:12 AM [facility] Hemoglobin 7.7(L) 11.7 - 15.7 g/dL 05/19/2024 4:12 AM [facility] Hematocrit 22.7(L) 35.0 - 47.0 % 05/19/2024 4:12 AM [facility] MCV 93 78 - 100 fL 05/19/2024 4:12 AM [facility] MCH 31.4 26.5 - 33.0 pg 05/19/2024 4:12 AM [facility] MCHC 33.9 31.5 - 36.5 g/dL 05/19/2024 4:12 AM [facility] RDW 23.0(H) 10.0 - 15.0 % 05/19/2024 4:12 AM [facility] Platelet Count 518(H) 150 - 450 10e3/uL 05/19/2024 4:12 AM [facility] Blood VENOUS LINE / Unknown Venipuncture / Unknown 05/19/2024 3:05 AM [facility] 05/19/2024 3:18 AM REMOTE MEDICAL CODER us Marilia Summers MD LAB - BLOOD ORDERABLES Final Result [facility] [address] [place] [address], [facility] * HCG QUALitative (blood) (05/19/2024 3:05 AM REMOTE MEDICAL CODER) [facility] hCG Serum Qualitative Negative Negative JARET 05/19/2024 3:29 AM [facility] Comment:This test is for scr eening purposes. Results should be interpreted along with the clinical picture. Confirmation testing is available if warranted by ordering [id number], HCG Quantitative . Blood VENOUS LINE / Unknown Venipuncture / Unknown 05/19/2024 3:05 AM REMOTE MEDICAL CODER 05/19/2024 3:18 AM REMOTE MEDICAL CODER Narrative [facility] - 05/19/2024 3:29 AM [facility] Lot#: [id number] Exp: 2025-09-28 Marilia Summers MD LAB - BLOOD ORDERABLES Final Result Performing Organization Address City/[facility]/ZIP Co de Phone Number [facility] [address] [place] [address] * (ABNORMAL) CK total (05/19/2024 3:05 AM REMOTE MEDICAL CODER) [facility] CK 240(H) 26 - 192 U/L 05/19/2024 3:37 AM [facility] Blood VENOUS LINE / Unknown Venipuncture / Unknown 05/19/2024 3:05 AM REMOTE [facility]ICAL CODER 05/19/2024 3:18 AM REMOTE MEDICAL CODER Marilia Summers MD LAB - BLOOD ORDERABLES Final Result Performing Organization Address City/[facility]/ZIP Co de Phone Number [facility] [address] [place] [address] * (ABNORMAL) Hepatic function panel (05/19/2024 3:05 AM REMOTE MEDICAL CODER) [facility] Protein Total 7.9 6.4 - 8.3 g/dL 05/19/2024 3:37 AM [facility] Albumin 4.3 3.5 - 5.2 g/dL 05/19/2024 3:37 AM [facility] Bilirubin Total 2.6(H) <=1.2 mg/dL 05/19/2024 3:37 AM [facility] Alkaline Phosphatase 128 40 - 150 U/L 05/19/2024 3:37 AM [facility] AST 67(H) 0 - 45 U/L 05/19/2024 3:37 AM [facility] ALT 39 0 - 50 U/L 05/19/2024 3:37 AM [facility] Bilirubin Direct 0.65(H) 0.00 - 0.30 mg/dL 05/19/2024 3:37 AM [facility] Blood VENOUS LINE / Unknown Venipuncture / Unknown 05/19/2024 3:05 AM [facility] 05/19/2024 3:18 AM [facility] us Marilia Summers MD LAB - BLOOD ORDERABLES Final Result [facility] [address] [place] [address], [facility] * (ABNORMAL) Basic metabolic panel (05/19/2024 3:05 AM [facility]) Sodium 137 135 - 145 mmol/L 05/19/2024 3:37 AM [facility] Potassium 4.2 3.4 - 5.3 mmol/L 05/19/2024 3:37 AM [facility] Chloride 107 98 - 107 mmol/L 05/19/2024 3:37 AM [facility] Carbon Dioxide (CO2) 20(L) 22 - 29 mmol/L 05/19/2024 3:37 AM [facility] Anion Gap 10 7 - 15 mmol/L 05/19/2024 3:37 AM [facility] Urea Nitrogen 11.2 6.0 - 20.0 mg/dL 05/19/2024 3:37 AM [facility] Creatinine 0.81 0.51 - 0.95 mg/dL 05/19/2024 3:37 AM [facility] GFR Estimate >90 >60 mL/min/1.7 3m2 05/19/2024 3:37 AM [facility] Comment:eGFR calculated usin 2020 CKD-EPI equation. Calcium 9.1 8.8 - 10.4 mg/dL 05/19/2024 3:37 AM [facility] Comment:Reference intervals for this test were updated on 11/09/2023 to reflect our healthy population more accurately. There may be differences in the flagging of prior results with similar values performed with this method. Those prior results can be interpreted in the context of the updated reference intervals. Glucose 99 70 - 99 mg/dL 05/19/2024 3:37 AM [facility] Blood VENOUS LINE / Unknown Venipuncture / Unknown 05/19/2024 3:05 AM [facility] 05/19/2024 3:18 AM REMOTE [facility] CODER Marilia Summers MD LAB - BLOOD ORDERABLES Final Result Performing Organization Address [facility] de Phone Number [facility] [address] [place] [address] [place] [id number], [facility] * (ABNORMAL) Reticulocyte count (05/19/2024 3:05 AM REMOTE MEDICAL CODER) [facility] % Reticulocyte 23.3(H) 0.5 - 2.0 % 05/19/2024 3:47 AM [facility] Absolute Reticulocyte 0.550(H) 0.025 - 0.095 10e6/uL 05/19/2024 3:47 AM [facility] Blood VENOUS LINE / Unknown Venipuncture / Unknown 05/19/2024 3:05 AM [facility] 05/19/2024 3:18 AM REMOTE MEDICAL CODER Marilia Summers MD LAB - BLOOD ORDERABLES Final Result Performing Organization Address [facility] de Phone Number [facility] [address] [place] [address] PROSPER Munoz [facility], [facility] documented in this encounter Visit Diagnoses Diagnosis Sickle cell disease with crisis (H) Hb-SS disease with crisis documented in this encounter Administered Medications Inactive Administered Medications - up to 3 most recent administrations Medication Order MAR Action Action Date Dose Rate Site diphenhydrAMINE (BENADRYL) injection 25 mg 25 mg, Intravenous, ONCE, On Wed05/19/24 at 0300, For 1 dose $Given 05/19/2024 3:10 AM REMOTE MEDICAL CODER 25 mg diphenhydrAMINE (BENADRYL) injection 25 mg 25 mg, Intravenous, ONCE, On Wed05/19/24 at 0530, For 1 dose $Given 05/19/2024 5:17 AM REMOTE MEDICAL CODER 25 mg HYDROmorphone (DILAUDID) injection 2 mg 2 mg, Intravenous, EVERY 1 HOUR PRN, moderate pain, Starting on Wed05/19/24 at 0241, For 3 doses $Given 05/19/2024 5:30 AM [employer]OTE MEDICAL COD[employer] 2 mg $Given 05/19/2024 4:19 AM [employer]OTE MEDICAL [employer] 2 mg $Given 05/19/2024 3:10 AM [employer]OTE [employer]ICAL C[employer] 2 mg lactated ringers BOLUS 1,000 mL Intravenous, 1,000 mL, ONCE, at 500 mL/hr, Administer over 2 Hours, On Wed05/19/24 at 0300, For 1 dose Rate/Dose Verify 05/19/2024 4:24 AM [employer]OTE [employer]ICAL CODER 500 mL/hr $New Bag 05/19/2024 3:15 AM [employer]OTE [employer]ICAL [employer]OD[employer] 1,000 mLs 500 mL/hr ondansetron (ZOFRAN) injection 8 mg 8 mg, Intravenous, ONCE, Administer over 2-5 Minutes, On Wed05/19/24 at 0530, For 1 dose $Given 05/19/2024 5:17 AM [employer]OTE [employer] 8 mg documented in this encounter Active and Recently Administered Medications Times are shown in [employer]. Scheduled Medication Order 05/17/2024 05/18/2024 05/19/2024 diphenhydrAMINE (BENADRYL) injection 25 mg (COMPLETED) 25 mg, Intravenous, ONCE, On Wed05/19/24 at 0300, For 1 dose 0310 ($Given - Provi nas: Cj Stewart RN) diphenhydrAMINE (BENADRYL) injection 25 mg (COMPLETED) 25 mg, Intravenous, ONCE, On Wed05/19/24 at 0530, For 1 dose 0517 ($Given - Provi nas: Cj Stewart RN) lactated ringers BOLUS 1,000 mL (COMPLETED) Intravenous, 1,000 mL, ONCE, at 500 mL/hr, Administer over 2 Hours, On Wed05/19/24 at 0300, For 1 dose 0315 ($New Bag - Pro vider: Cj Stewart RN)0424 (Rate/Dose Verify - Provider: Cj Stewart RN)0544 (Stopped - Provider: Cj Stewart RN) ondansetron (ZOFRAN) injection 8 mg (COMPLETED) 8 mg, Intravenous, ONCE, Administer over 2-5 Minutes, On Wed05/19/24 at 0530, For 1 dose 0517 ($Given - Provi nas: Cj Stewart, SOFIA) PRN Medication Order 05/17/2024 05/18/2024 05/19/2024 HYDROmorphone (DILAUDID) injection 2 mg (COMPLETED) 2 mg, Intravenous, EVERY 1 HOUR PRN, moderate pain, Starting on Wed05/19/24 at 0241, For 3 doses 0310 ($Given - Provi nas: Cj Stewart RN)0419 ($Given - Provider: Cj Stewart RN)0530 ($Given - Provider: Cj Stewart RN) documented in this encounter Care Teams Regulation Supervisor Relationship Specialty Start Date End Date No Ref-Primary, Physician PCP - General 03/15/24 06/17/24 Mor Ramsey Medical Student 04/03/24 Case Samuel MD [address] [place] [address] [address] [place] [address] Assigned Pediatric Specialist Provider 05/18/24 documented as of this encounter
--- OUTSIDE RECORDS SUMMARY | 2024-06-21 22:19 | XMS_ITS | Encounter Summary ---
Author Organization [facility] Address [address] [place] [address]. 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 Author Pain Management General On track( 025 12:40 PM PRODUCT MARKETING COORDINATOR) Yes Juhi Benson, RN Note: Goal Statement: [...] on filedocumented in this encounter Care Teams Spindle Plumber Relationship Specialty Start Date End Date No Ref-Primary, Physician PCP - General 03/15/24 06/17/24 Mor Ramsey Medical Student 04/03/24 Case Samuel MD [address] [place] [address] [address], [address] [place] [address] Assigned Pediatric Specialist Provider 05/18/24 documented as of this encounter
--- OUTSIDE RECORDS SUMMARY | 2024-06-21 22:19 | XMS_ITS | Encounter Summary ---
Author Organization [place] Address [address] [place] [address]. [place] [address] Care Team Providers Care Medical Insurance Coder Name Role Phone No Ref-Primary, Physician Primary Care Provider Mor Ramsey Unavailable Unavailable Reason for Visit * Reason Comments Sickle Cell Pain Crisis Encounter Details Date Type Department Care Team (Late st Contact Info) Description 05/14/2024 10:07 PM WARP HANGER - 05/15/2024 12:14 AM [facility] Emergency [facility] Emergency Room [facility] [place] [phone] Marguerite Ponce PA-C [facility] [address] [place] [id number] Sickle cell pain crisis (H) Discharge Disposition: [...] on file Legal Sex Female 8:25 AM WARP HANGER Gender Identity Not on file Sexual Orientation Not on file documented as of this encounter Last Filed Vital Signs Vital Sign Reading Time Taken Comments Blood Pressure 113/64 05/15/2024 12:03 AM WARP HANGER Pulse 97 05/15/2024 12:11 AM WARP HANGER Temperature 36.7 C (98 F) 05/14/2024 9:33 PM WARP HANGER Respiratory Rate 16 05/14/2024 9:33 PM WARP HANGER Oxygen Saturation 94% 05/15/2024 12:11 AM WARP HANGER Inhaled Oxygen Concentration - - Weight 52.2 kg (115 lb) 05/14/2024 9:33 PM WARP HANGER Height 154.9 cm (5' 1) 05/14/2024 9:33 PM WARP HANGER Body Mass Index 21.73 05/14/2024 9:33 PM WARP HANGER documented in this encounter Discharge Instructions * Discharge Instructions* Marguerite Ponce PA-C - 05/15/2024 12:02 AM WARP HANGER You were seen in the ER today for sickle cell pain crisis Your symptoms improved with pain medicine here and fluids. Lab work today all looks fairly reassuring and similar to previous. We ultimately did not do a chest x-ray as you did not have any chest pain, coughing, shortness of breath, or vital abnormalities. If you develop any of the symptoms return to the emergency department. Continue follow-up with pain clinic and your primary care provider in hematology clinic for management of your sickle cell. HANGER documented in this encounter Medications at Time [...] by mouth daily. 30 tablet 11 05/01/2024 amoxicillin-clavu lanate (AUGMENTIN) 875-125 MG tablet Take 1 tablet by mouth 2 times daily for 7 days. 14 tablet 05/08/2024 5 doxycycline hyclate (VIBRAMYCIN) 100 MG capsule Take 1 capsule (100 mg) by mouth 2 times daily for 7 days. 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 30 tablet 05/09/2024 5 documented as of this encounter ED Notes * Obie Schofield RN - 05/15/2024 12:14 AM CST AVS reviewed with pt. Education provided on worsening symptoms to watch out for and close follow-upwith PCP. All questions were answered. Vitally stable upon discharge. HANGER * Ana Leon RN - 05/14/2024 9:35 PM CST Reports sickle cell crisis and hurts all over Seen here yesterday for same symptoms Triage Assessment (Adult) Row Name 05/14/247 Triage Assessment Airway WDL WDL Respiratory WDL Respiratory WDL WDL Skin Circulation/Temperature WDL Skin Circulation/Temperature WDL WDL Cardiac WDL Cardiac WDL WDL Peripheral/Neurovascular WDL Peripheral Neurovascular WDL WDL Cognitive/Neuro/Behavioral WDL Cognitive/Neuro/Behavioral WDL WDL HANGER * Marguerite Ponce PA-C - 05/14/2024 9:33 PM CST Emergency Department Encounter NAME: Gianna Hernández ; AGE: [age] year old female ; DATE OF : 1995 ; ; PCP: No Ref-Primary, Physician ED PROVIDER: Marguerite Ponce PA-C Evaluation Date & Time: No admission date for patient encounter. CHIEF COMPLAINT: Sickle Cell Pain Crisis Impression and Plan FINAL IMPRESSION: ICD-10-CM 1. Sickle cell pain crisis (H) D57.00 ED Course and Medical Decision Making Gianna is a 29 year old female with PMH of sickle cell crisis, VTE, and asthma presenting to theemergency department for evaluation of muscle and bodyaches. With the recent subzero temperatures patient endorses increased muscle aches. She was evaluated here in the emergency department yesterdayas well. She denies any chest pain or shortness of breath. No recent fevers, chills, nausea, or vomiting. She recently finished a course of antibiotics for pneumonia and endorses feeling quite a bit better following. She states her pain today is primarily bilaterally in her hips and legs. She triedDilaudid at home as well as Tylenol and had minimal relief of her pain. Vitals reviewed, slightly hypotensive at 104/51. She is otherwise not tachycardic or hypoxic. She is afebrile. On exam she is resting comfortably, no acute distress. Differential diagnosis/emergent conditions considered and evaluated for includes but not limited to influenza, arthritis, sickle cell crisis, electrolyte abnormality, hypoglycemia, pneumonia, asthma exacerbation, acute chest syndrome, PE. Physical exam is overall unremarkable and reassuring. She does not have any chest pain, shortness of breath, cough, or fever. I do not suspect acute chest syndrome. Discussed foregoing chest x-ray today as patient gets very frequent chest x-rays and I think we could spare her radiation today, she is agreeable. Patient recently finished antibiotics for pneumonia and endorses feeling quite a bit better. She does not have any coughing or fevers and I have low suspicion for pneumonia today. She states she is primarily having pain in her legs is referred to the emergency department today. Sheis PERC negative, I do not suspect PE. Will plan to obtain blood work to evaluate for possible aplastic crisis and her care plan for pain management. Protocol is listed in her care plan for acute pain crisis treatment in the emergency department, however, is listed in her allergy list with reaction type of anaphylaxis so will avoid giving this. Her EKG shows normal sinus rhythm, no concerning arrhythmia or ischemia. Troponin <6. Her reticulocyte count today is 27.5, consistent with sickle cell crisis and her previous reticulocyte counts.This is not low to indicate an aplastic crisis. Patient appears to have a chronic leukocytosis at baseline. Her white blood cell count today is 17.9 which appears fairly consistent with her baseline.Her hemoglobin is 7.6, improved from 7.1 yesterday. Platelet count is 487, this is fairly consistent with previous. Lab work today is overall fairly reassuring and consistent with her baseline. She was given 2 rounds of 2 mg Dilaudid here in the emergency department as well as 1L LR with improvement and is ready for discharge home. She will follow-up with her pain clinic, primary care, and hematology as needed. Discussed concerning symptoms out or return to the emergency department and she is understanding andagreeable to this plan. Supplemental history: Obtained supplemental history:Supplemental history obtained?: No Reviewed external records: External records reviewed?: Documented in chart Patient information was obtained from: patient Use of Intrepreter: N/A Complicating Factors: Care impacted by chronic illness:Documented in Chart Care significantly affected by social determinants of health:N/A Work Up: Did you consider but not order tests?: Work up considered but not performed and documented in chart, if applicable Did you interpret images independently?: Independent interpretation of ECG and images noted in documentation, when applicable. External Consults: Consultation discussion with other provider:Did you involve another provider (network security consultant, , pharmacy, etc.)?: No Discharge. No recommendations on prescription strength medication(s). See documentation for any additional details. I considered escalation of care and admitting the patient but ultimately did not given reassuring exam and workup. ED COURSE: 9:55 PM I met and introduced myself to the patient. I gathered initial history and performed my physical exam. We discussed plan for initial workup. 12:02 AM I rechecked the patient and discussed results, discharge, follow up, and reasons to returnto the ED. At the conclusion of the encounter I discussed the results of all the tests and the disposition. The questions were answered. The patient or family acknowledged understanding and was agreeable with the care plan. MEDICATIONS GIVEN IN THE EMERGENCY DEPARTMENT: Medications lactated ringers BOLUS 1,000 mL (0 mLs Intravenous Stopped 05/14/24 6476) HYDROmorphone (DILAUDID) injection 2 mg (2 mg Intravenous $Given 05/14/24 2229) diphenhydrAMINE (BENADRYL) capsule 25 mg (25 mg Oral $Given 05/14/24 2245) HYDROmorphone (DILAUDID) injection 2 mg (2 mg Intravenous $Given 05/14/24 2327) NEW PRESCRIPTIONS STARTED AT TODAY'S ED VISIT: New Prescriptions No medications on file HPI Gianna Hernández is a 29 year old female with a pertinent history of sickle cell disease, stroke,and pulmonary embolism who presents to the ED by walk-in for evaluation of sickle cell crisis. Patient reports feeling worse with her sickle cell disease as the temperature outside is dropping. She endorses just general aches, more so in her legs and back. She took dilaudid (a total of 8 4mg oral tablets taken today) and did her home regimens with no relief. She took tylenol at 1800 today. She is done with her course of antibiotics of Augmentin and doxycycline from a previous visit. Denieschest pain, shortness of breath, fever, congestion, and sore throat. Per chart review: 05/13/2024: Patient was seen here yesterday for sickle cell crisis. Patient was given 3 doses of dilaudid per her care plan. 05/08/2024: Patient was seen here for chest pain and sickle cell crisis. CXR was done and appeared to be worsening per radiology read (previously had nodules). They did not feel like it was not acute chest syndrome. Patient was given prescriptions for Augmentin and doxycycline. Physical Exam First Vitals: Patient Vitals for the past 24 hrs: BP Temp Temp src Pulse Resp SpO2 Height Weight 05/14/24 2330 127/85 -- -- 89 -- 98 % -- -- 05/14/24 2300 111/79 -- -- 88 -- 92 % -- -- 05/14/24 2227 109/65 -- -- 99 -- 96 % -- -- 05/14/24 2133 104/51 98 ??F (36.7 ??C) Oral 90 16 98 % 1.549 m (5' 1) 52.2 kg (115 lb) PHYSICAL EXAM General Appearance: Alert, cooperative, no distress, appears stated age HENT: Normocephalic without obvious deformity, atraumatic. Mucous membranes moist Eyes: Conjunctiva clear, Lids normal. No discharge. Respiratory: No distress. Lungs clear to ausculation bilaterally. No wheezes, rhonchi or stridor Cardiovascular: Regular rate and rhythm, no murmur. Normal cap refill. No peripheral edema GI: Abdomen soft, nontender Musculoskeletal: Moving all extremities. No gross deformities Integument: Warm, dry, no rashes or lesions Neurologic: Alert and orientated x3. No focal deficits. Psych: Normal mood and affect Results LAB: All pertinent labs reviewed and interpreted Labs Ordered and Resulted from Time of ED Arrival to Time of ED Departure HEPATIC FUNCTION PANEL - Abnormal Result Value Protein Total 7.9 Albumin 4.4 Bilirubin Total 2.8 (*) Alkaline Phosphatase 120 AST 67 (*) ALT 51 (*) Bilirubin Direct 0.70 (*) RETICULOCYTE COUNT - Abnormal % Reticulocyte 27.5 (*) Absolute Reticulocyte 0.639 (*) CBC WITH PLATELETS AND DIFFERENTIAL - Abnormal WBC Count 17.9 (*) RBC Count 2.32 (*) Hemoglobin 7.6 (*) Hematocrit 21.4 (*) MCV 92 MCH 32.8 MCHC 35.5 RDW 24.7 (*) Platelet Count 487 (*) MANUAL DIFFERENTIAL - Abnormal % Neutrophils 63 % Lymphocytes 29 % Monocytes 8 % Eosinophils 0 % Basophils 0 Absolute Neutrophils 11.3 (*) Absolute Lymphocytes 5.2 Absolute Monocytes 1.4 (*) Absolute Eosinophils 0.0 Absolute Basophils 0.0 NRBCs per 100 WBC 1 Absolute NRBCs 0.2 RBC Morphology Confirmed RBC Indices Platelet Assessment Value: Automated Count Confirmed. Platelet morphology is normal. Acanthocytes Slight (*) Elliptocytes Slight (*) Polychromasia Slight (*) Sickle Cells Moderate (*) Target Cells Slight (*) BASIC METABOLIC PANEL - Normal Sodium 136 Potassium 4.4 Chloride 104 Carbon Dioxide (CO2) 22 Anion Gap 10 Urea Nitrogen 10.5 Creatinine 0.78 GFR Estimate >90 Calcium 9.0 Glucose 88 TROPONIN T, HIGH SENSITIVITY - Normal Troponin T, High Sensitivity <6 HCG QUALITATIVE - Normal hCG Serum Qualitative Negative RADIOLOGY: No orders to display ECG: Performed at: 22:12:25 Impression: sinus rhythm, nonspecific T wave abnormality, no significant change was found from ECG of 15:38 Rate: 97 BPM Rhythm: sinus [place]: 19 81 58 AL Interval: 142 ms QRS Interval: 80 ms QTc Interval: [address] Changes: none Comparison: ECG of 15:38 EKG results reviewed and interpreted by Dr. Tia ED MD. IMelody, am serving as a scribe to document services personally performed by Marguerite Ponce PA-C, based on my observation and the provider's statements to me. IMarguerite PA-C attest that Melody John is acting in a scribe capacity, has observed my performance of the services and has documented them in accordance with my direction. Marguerite Ponce PA-C Emergency Medicine [facility] EMERGENCY ROOM Marguerite Ponce PA-C 05/15/24 0004 HANGER documented in this encounter Plan of Treatment Not on file documented as of this encounter Goals Goal Patient Goal Type Associated Problems Recent Progress Patient-Stated? Author Pain Management General On track( 025 12:40 PM WARP HANGER) Yes Juhi Benson, SOFIA Note: Goal Statement: [...] Date/Time Associated Diagnosis Comments MANUAL DIFFERENTIAL STAT 05/14/2024 1 0:24 PM WARP HANGER CBC WITH PLATELETS AND DIFFERENTIAL STAT 05/14/2024 10:24 PM WARP HANGER TROPONIN T, HIGH SENSITIVITY STAT 05/14/2024 10:24 PM WARP HANGER CBC WITH PLATELETS & DIFFERENTIAL STAT 05/14/2024 10:24 PM WARP HANGER RETICULOCYTE COUNT STAT 05/14/2024 10 :24 PM WARP HANGER HEPATIC FUNCTION PANEL STAT 05/14/2024 10:24 PM WARP HANGER HCG QUALITATIVE STAT 05/14/2024 10:24 PM WARP HANGER BASIC METABOLIC PANEL STAT 05/14/2024 10:24 PM WARP HANGER ECG 12-LEAD WITH MUSE SJN,SJO,WWH STAT 05/14/2024 10:12 PM WARP HANGER documented in this encounter Results * (ABNORMAL) Manual Differential (05/14/2024 10:24 PM WARP HANGER) % Neutrophils 63 % JARET 05/14/2024 10:58 PM [facility]ER [facility] % Lymphocytes 29 % JARET 05/14/2024 10:58 PM [facility]ER [facility] % Monocytes 8 % JARET 05/14/2024 10:58 PM [facility]ER [facility] % Eosinophils 0 % JARET 05/14/2024 10:58 PM [facility]ANGER [facility] % Basophils 0 % JARET 05/14/2024 10:58 PM WARP HANGER [facility] Absolute Neutrophils 11.3(H) 1.6 - 8.3 10e3/uL JARET 05/14/2024 10:58 PM [facility] Absolute Lymphocytes 5.2 0.8 - 5.3 10e3/uL JARET 05/14/2024 10:58 PM [facility] Absolute Monocytes 1.4(H) 0.0 - 1.3 10e3/uL JARET 05/14/2024 10:58 PM [facility] Absolute Eosinophils 0.0 0.0 - 0.7 10e3/uL JARET 05/14/2024 10:58 PM [facility] Absolute Basophils 0.0 0.0 - 0.2 10e3/uL JARET 05/14/2024 10:58 PM [facility] NRBCs per 100 WBC 1 % JARET 05/14/2024 10:58 PM [facility] Absolute NRBCs 0.2 10e3/uL JARET 05/14/2024 10:58 PM [facility] RBC Morphology Confirmed RBC Indices JARET 05/14/2024 10:58 PM [facility] Platelet Assessment Automated Count Confirmed. Platelet morphology is normal. Automated Count Confirmed. Platelet morphology is normal. JARET 05/14/2024 10:58 PM [facility] Acanthocytes Slight(A) None Seen JARET 05/14/2024 10:58 PM [facility] Elliptocytes Slight(A) None Seen JARET 05/14/2024 10:58 PM [facility] Polychromasia Slight(A) None Seen JARET 05/14/2024 10:58 PM [facility] Sickle Cells Moderate(A) None Seen [facility] 05/14/2024 10:58 PM [facility] Target Cells Slight(A) None Seen [facility] 05/14/2024 10:58 PM [facility] Blood BLOOD SPECIMEN / Unknown Venipuncture / Unknown 05/14/2024 10:24 PM [facility] 05/14/2024 10:30 PM [facility] us Marguerite Ponce PA-C LAB - BLOOD ORDERABLES Final R esult [facility] [address] [place] [address], [facility] * (ABNORMAL) CBC with platelets and differential (05/14/2024 10:24 PM WARP HANGER) WBC Count 17.9(H) 4.0 - 11.0 10e3/uL 05/14/2024 10:58 PM WARP HANGER [facility] RBC Count 2.32(L) 3.80 - 5.20 10e6/uL 05/14/2024 10:58 PM [facility] Hemoglobin 7.6(L) 11.7 - 15.7 g/dL 05/14/2024 10:58 PM [facility] Hematocrit 21.4(L) 35.0 - 47.0 % 05/14/2024 10:58 PM [facility] MCV 92 78 - 100 fL 05/14/2024 10:58 PM [facility] MCH 32.8 26.5 - 33.0 pg 05/14/2024 10:58 PM [facility] MCHC 35.5 31.5 - 36.5 g/dL 05/14/2024 10:58 PM [facility] RDW 24.7(H) 10.0 - 15.0 % 05/14/2024 10:58 PM [facility] Platelet Count 487(H) 150 - 450 10e3/uL 05/14/2024 10:58 PM [facility] Blood BLOOD SPECIMEN / Unknown Venipuncture / Unknown 05/14/2024 10:24 PM WARP HANGER 05/14/2024 10:30 PM WARP HANGER us Marguerite Ponce PA-C LAB - BLOOD ORDERABLES Final R esult [facility] [address] [place] [address], [facility] * HCG QUALitative (blood) (05/14/2024 10:24 PM WARP HANGER) Pathologist [facility] hCG Serum Qualitative Negative Negative JARET 05/14/2024 10:54 PM WARP HANGER [facility] Comment:This test is for scr eening purposes. Results should be interpreted along with the clinical picture. Confirmation testing is available if warranted by ordering [id number], HCG Quantitative . Blood BLOOD SPECIMEN / Unknown Venipuncture / Unknown 05/14/2024 10:24 PM WARP HANGER 05/14/2024 10:30 PM WARP HANGER Marguerite Ponce PA-C LAB - BLOOD ORDERABLES Final R esult Performing Organization Address [facility] Co de Phone Number [facility] [address] [place] [address] [place] [address], [facility] * Troponin T, High Sensitivity (05/14/2024 10:24 PM WARP HANGER) Pathologist [facility] Troponin T, High Sensitivity <6 <=14 ng/L 05/14/2024 10:53 PM WARP HANGER [facility] Comment: Either a High Sensitivity [...] BLOOD SPECIMEN / Unknown Venipuncture / Unknown 05/14/2024 10:24 PM WARP HANGER 05/14/2024 10:30 PM WARP HANGER Marguerite Ponce PA-C LAB - BLOOD ORDERABLES Final R esult Performing Organization Address [facility] Co de Phone Number [facility] [address] [place] [address] [place] [address], [place] * (ABNORMAL) Reticulocyte count (05/14/2024 10:24 PM WARP HANGER) % Reticulocyte 27.5(H) 0.5 - 2.0 % 05/14/2024 10:33 PM WARP HANGER [facility] Absolute Reticulocyte 0.639(H) 0.025 - 0.095 10e6/uL 05/14/2024 10:33 PM WARP HANGER [facility] Blood BLOOD SPECIMEN / Unknown Venipuncture / Unknown 05/14/2024 10:24 PM WARP HANGER 05/14/2024 10:30 PM WARP HANGER Marguerite Ponce PA-C LAB - BLOOD ORDERABLES Final R esult Performing Organization Address City/[facility]/ZIP Co de Phone Number [facility] [address] [place] [address] Dr[address] [place], [place] [address], [facility] * (ABNORMAL) Hepatic function panel (05/14/2024 10:24 PM WARP HANGER) Protein Total 7.9 6.4 - 8.3 g/dL 05/14/2024 10:53 PM [facility] Albumin 4.4 3.5 - 5.2 g/dL 05/14/2024 10:53 PM [facility] Bilirubin Total 2.8(H) <=1.2 mg/dL 05/14/2024 10:53 PM [facility] Alkaline Phosphatase 120 40 - 150 U/L 05/14/2024 10:53 PM [facility] AST 67(H) 0 - 45 U/L 05/14/2024 10:53 PM [facility] ALT 51(H) 0 - 50 U/L 05/14/2024 10:53 PM [facility] Bilirubin Direct 0.70(H) 0.00 - 0.30 mg/dL 05/14/2024 10:53 PM [facility] Blood BLOOD SPECIMEN / Unknown Venipuncture / Unknown 05/14/2024 10:24 PM WARP HANGER 05/14/2024 10:30 PM WARP HANGER us Marguerite Ponce PA-C LAB - BLOOD ORDERABLES Final R esult Performing Organization Address City/[facility]/ZIP Co de Phone Number [address] [place] [address], [facility] * Basic metabolic panel (05/14/2024 10:24 PM WARP HANGER) Sodium 136 135 - 145 mmol/L 05/14/2024 10:53 PM [facility] Potassium 4.4 3.4 - 5.3 mmol/L 05/14/2024 10:53 PM [facility] Chloride 104 98 - 107 mmol/L 05/14/2024 10:53 PM [facility] Carbon Dioxide (CO2) 22 22 - 29 mmol/L 05/14/2024 10:53 PM [facility] Anion Gap 10 7 - 15 mmol/L 05/14/2024 10:53 PM [facility] Urea Nitrogen 10.5 6.0 - 20.0 mg/dL 05/14/2024 10:53 PM [facility] Creatinine 0.78 0.51 - 0.95 mg/dL 05/14/2024 10:53 PM [facility] GFR Estimate >90 >60 mL/min/1.7 3m2 05/14/2024 10:53 PM [facility] Comment:eGFR calculated usin 2020 CKD-EPI equation. Calcium 9.0 8.8 - 10.4 mg/dL 05/14/2024 10:53 PM [facility] Comment:Reference intervals for this test were updated on 11/09/2023 to reflect our healthy population more accurately. There may be differences in the flagging of prior results with similar values performed with this method. Those prior results can be interpreted in the context of the updated reference intervals. Glucose 88 70 - 99 mg/dL 05/14/2024 10:53 PM [facility] Blood BLOOD SPECIMEN / Unknown Venipuncture / Unknown 05/14/2024 10:24 PM WARP HANGER 05/14/2024 10:30 PM [facility] us Marguerite Ponce PA-C LAB - BLOOD ORDERABLES Final R esult [facility] [address] [place] [address], [facility] * ECG 12-LEAD WITH MUSE (LHE) (05/14/2024 10:12 PM [facility]) Systolic Blood Pressure mmHg RADIOLOGY RESULTS Diastolic Blood Pressure mmHg RADIOLOGY RESULTS Ventricular Rate 97 BPM RAD IOLOGY RESULTS Atrial Rate 97 BPM RADIOLOG Y RESULTS AL Interval 142 ms RADIOLOG Y RESULTS QRS Duration 80 ms RADIOLO GY RESULTS QT 346 ms RADIOLOGY RESULTS QTc 439 ms RADIOLOGY RESULTS P [place] 19 degrees RADIOLOGY RESULTS R AXIS 81 degrees RADIOLOGY RESULTS T [place] 58 degrees RADIOLOGY RESULTS Interpretation ECG Sinus rhythm Nonspecific T wave abnormality Abnormal ECG When compared with ECG of 13-May-2024 15:38, No significant change was found Confirmed by SEE ED PROVIDER NOTE FOR, ECG INTERPRETATION ([id number]), editor farm journal SELMA GARRISON ([id number]) on 05/14/2024 11:09:33 PM RADIOLOGY RESULTS 05/14/2024 10:1 2 PM WARP HANGER 05/14/2024 11:09 PM WARP HANGER us Marguerite Ponce PA-C ECG ORDERABLES Edited Result - Final RADIOLOGY RESULTS documented in this encounter Visit Diagnoses Diagnosis 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 documented in this encounter Administered Medications Inactive Administered Medications - up to 3 most recent administrations Medication Order MAR Action Action Date Dose Rate Site diphenhydrAMINE (BENADRYL) capsule 25 mg 25 mg, Oral, ONCE, On 05/14/24 at 2300, For 1 dose $Given 05/14/2024 10:45 PM WARP HANGER 25 mg HYDROmorphone (DILAUDID) injection 2 mg 2 mg, Intravenous, ONCE, On 05/14/24 at 2200, For 1 dose $Given 05/14/2024 10:29 PM [facility] 2 mg HYDROmorphone (DILAUDID) injection 2 mg 2 mg, Intravenous, ONCE, On 05/14/24 at 2330, For 1 dose $Given 05/14/2024 11:27 PM [facility] 2 mg lactated ringers BOLUS 1,000 mL Intravenous, 1,000 mL, ONCE, On 05/14/24 at 2200, For 1 dose $New Bag 05/14/2024 10:29 PM [facility] 1,000 mLs documented in this encounter Active and Recently Administered Medications Times are shown in [facility]. Scheduled Medication Order 05/13/2024 05/14/2024 05/15/2024 diphenhydrAMINE (BENADRYL) capsule 25 mg (COMPLETED) 25 mg, Oral, ONCE, On 05/14/24 at 2300, For 1 dose 2245 ($Given - Provider: Phillip Schofield RN) HYDROmorphone (DILAUDID) injection 2 mg (COMPLETED) 2 mg, Intravenous, ONCE, On 05/14/24 at 2200, For 1 dose 2229 ($Given - Provider: Phillip Schofield RN) HYDROmorphone (DILAUDID) injection 2 mg (COMPLETED) 2 mg, Intravenous, ONCE, On 05/14/24 at 2330, For 1 dose 2327 ($Given - Provider: Phillip Schofield RN) lactated ringers BOLUS 1,000 mL (COMPLETED) Intravenous, 1,000 mL, ONCE, On 05/14/24 at 2200, For 1 dose 2229 ($New Bag - Provider: Obie Schofield RN)2334 (Stopped - Provider: Obie Schofield RN) documented in this encounter Care Teams Medical Insurance Coder Relationship Specialty Start Date End Date No Ref-Primary, Physician PCP - General 03/15/24 06/17/24 Mor Ramsey Medical Student 04/03/24 documented as of this encounter
--- OUTSIDE RECORDS SUMMARY | 2024-06-21 22:19 | XMS_ITS | Encounter Summary ---
Author Organization [facility] Address [address] [place] [address]. 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 Author Pain Management General On track( 025 12:40 PM WEATHERIZATION OPERATIONS MANAGER) Yes Juhi Benson, RN Note: Goal [...] on filedocumented in this encounter Care Teams Cloth Framer Relationship Specialty Start Date End Date No Ref-Primary, Physician PCP - General 03/15/24 06/17/24 Mor Ramsey Medical Student 04/03/24 Case Samuel MD [address] [place] [address] [address] [place] [address] Assigned Pediatric Specialist Provider 05/18/24 documented as of this encounter
--- OUTSIDE RECORDS SUMMARY | 2024-06-21 22:19 | XMS_ITS | Encounter Summary ---
Author Organization [facility] Address [address] [place] [address]. 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 Author Pain Management General On track( 025 12:40 PM SUBSTATION SUPERINTENDENT) Yes Juhi Benson, SOFIA Note: Goal Statement: [...] on filedocumented in this encounter Care Teams Environmental Field Professional Relationship Specialty Start Date End Date No Ref-Primary, Physician PCP - General 03/15/24 06/17/24 Mor Ramsey Medical Student 04/03/24 Case Samuel MD [address] [place] [address] [address], [address] [place] [address] Assigned Pediatric Specialist Provider 05/18/24 documented as of this encounter
--- OUTSIDE RECORDS SUMMARY | 2024-06-21 22:19 | XMS_ITS | Encounter Summary ---
Author Organization [place] Address [address] [place] [id number] Care Team Providers Care Supervisor Home Restoration Service Name Role Phone No Ref-Primary, Physician Primary Care Provider Mor Ramsey Unavailable Unavailable Reason for Visit * Reason Comments Sickle Cell Pain Crisis Encounter Details Date Type Department Care Team ([facility] st Contact Info) Description 05/13/2024 3:56 PM MENS LOCKER ROOM ATTENDANT - 05/13/2024 7:56 PM MENS LOCKER ROOM ATTENDANT Emergency [facility] Emergency Room [facility] [place] [address] Shaheen Unger MD [address] [place] [id number] Sickle cell pain crisis (H) Discharge Disposition: [...] on file Legal Sex Female 8:25 AM MENS LOCKER ROOM ATTENDANT Gender Identity Not on file Sexual Orientation Not on file documented as of this encounter Last Filed Vital Signs Vital Sign Reading Time Taken Comments Blood Pressure 102/66 05/13/2024 7:45 PM MENS LOCKER ROOM ATTENDANT Pulse 83 05/13/2024 7:45 PM MENS LOCKER ROOM ATTENDANT Temperature 36.9 C (98.4 F) 05/13/2024 7:45 PM MENS LOCKER ROOM ATTENDANT Respiratory Rate 29 05/13/2024 7:45 PM MENS LOCKER ROOM ATTENDANT Oxygen Saturation 97% 05/13/2024 7:29 PM MENS LOCKER ROOM ATTENDANT Inhaled Oxygen Concentration - - Weight 53.3 kg (117 lb 6.4 oz) 05/13/2024 3:33 P M MENS LOCKER ROOM ATTENDANT Height 154.9 cm (5' 1) 05/13/2024 3:33 PM MENS LOCKER ROOM ATTENDANT Body Mass Index 22.18 05/13/2024 3:33 PM MENS LOCKER ROOM ATTENDANT documented in this encounter Discharge Instructions * Discharge Instructions* Shaheen Unger MD - 05/13/2024 7:45 PM MENS LOCKER ROOM ATTENDANT Your workup in the emergency department today was reassuring. I would continue with your prescription medications and contact your storm chaser determine if they would like to follow-up with you closely in clinic otherwise if you develop fevers, significantly worsening chest pain, new shortness of breath or other concerning symptom please return to the emergency department for repeat evaluation. LOCKER ROOM ATTENDANT * Attachments The following attachments cannot be sent through Care Everywhere. * Sickle Cell Crisis (Turkish) documented in this encounter Medications at Time [...] as of this encounter ED Notes * Shaheen Unger MD - 05/13/2024 4:14 PM CST EMERGENCY DEPARTMENT ENCOUNTER NAME: Gianna Hernández AGE: [age] year old female DATE OF : 1995 EVALUATION DATE & TIME: 05/13/2024 3:56 PM PCP: No Ref-Primary, Physician ED PROVIDER: Shaheen Unger MD Chief Complaint Patient presents with Sickle Cell Pain Crisis FINAL IMPRESSION: 1. Sickle cell pain crisis (H) ED COURSE & MEDICAL DECISION MAKING: Pertinent Labs & Imaging studies reviewed. (See chart for details) 29 year old female presents to the Emergency Department for evaluation of sickle cell pain crisis ED Course as of 05/13/24 2242 Sat May 13, 2024 1635 Patient 29-year-old female with history of sickle cell anemia who presents to the emergency department for evaluation of chest pain and concern for sickle cell crisis. Patient and notes exacerbation of her typical sickle cell pain in her lower back and sides today which is somewhat typical. Notes some intermittent brief periods of left-sided chest pain but the pain is predominantly in her lower back. No shortness of breath. No fevers at home. Denies any nausea or vomiting. No urinary symptoms. No nausea or vomiting. Exam patient is in no acute distress. Afebrile and hemodynamically stable. Is borderline tachycardic saturating 92% on room air. Heart is tachycardic but regular rhythm. Lungs are clear without any wheezes or rales. Abdomen soft and nontender. Will obtain blood work to evaluate for possible aplastic crisis. Will obtain IV access and follow patient's care plan with doses of Dilaudid. 1946 Labs reviewed interpret myself. Leukocytosis is again appreciated which she is essentially stable for the patient. Anemia at 7.1. Reticulocytes 25%. EKG reassuring and negative troponin. No significant metabolic derangements or renal injury. After 3 doses of Dilaudid as per her care plan patient has had significant improvement in her symptoms. She is well-appearing and nontoxic. Do not suspect acute chest at this point in time. Patient has essentially complete resolution of her symptoms and feels well and is requesting discharge home. I think this is reasonable. Signs symptoms worsening condition were discussed return precautions given. 4:38 PM I met and evaluated the patient. 7:51 PM I rechecked and updated the patient on results. We discussed the plan for discharge and thepatient is agreeable. Reviewed supportive cares, symptomatic treatment, outpatient follow up, and reasons to return to the Emergency Department. All questions and concerns were addressed. Patient to be discharged by ED RN. Medical Decision Making Obtained supplemental history:Supplemental history [...] other provider:Did you involve another provider (information systems consultant, , pharmacy, etc.)?: No Discharge. No [...] IN THE EMERGENCY: Medications HYDROmorphone (DILAUDID) injection 1 mg (1 mg Intravenous $Given 05/13/24 1658) lactated ringers BOLUS 1,000 mL (0 mLs Intravenous Stopped 05/13/24 1936) diphenhydrAMINE (BENADRYL) injection 25 mg (25 mg Intravenous $Given 05/13/24 1738) HYDROmorphone (DILAUDID) injection 1 mg (1 mg Intravenous $Given 05/13/24 1800) diphenhydrAMINE (BENADRYL) injection 25 mg (25 mg Intravenous $Given 05/13/24 1905) HYDROmorphone (DILAUDID) injection 1 mg (1 mg Intravenous $Given 05/13/24 1928) NEW PRESCRIPTIONS STARTED AT TODAY'S ER VISIT Discharge Medication List as of 05/13/2024 7:51 PM HPI Patient information was obtained from: the patient Use of Coal Inspector: N/A Gianna Hernández is a 29 year old female with a pertinent history of sickle cell disease and stroke who presents to this ED by walking in for evaluation of sickle cell pain crisis. The patient reports an onset of sickle cell pain today. The pain is located on her left-sided chestand generalized back. Denies shortness of breath. She takes Dilaudid 4 mg as needed, last dose at 1:00 PM (~4 hours ago) today. No nausea and vomiting. No known sick contact. The patient also takes hydroxyurea and folic acid daily. She denies fever, cough, dysuria, hematuria, and any other complaints at this time. Per chart review, the patient has presented to the ED at least 7 times this past month for sickle cell pain crisis. Her most recent visit was on 05/08/2024 (5 days ago) at [facility] ED. Prescriptions for Augmentin and doxycycline sent to her listed [facility] pharmacy. 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 Recently moved to [place] from [place], [place]. She is 1 of 9 [...] Social Connections: Socially Integrated (03/28/2024) Received from [facility] Social Connections Do you often feel [...] about losing your housing?: No VITALS: BP 102/66 Pulse 83 Temp 98.4 ??F (36.9 ??C) (Oral) Resp 29 Ht 1.549 m (5' 1) Wt 53.3 kg (117 lb 6.4 oz) SpO2 97% BMI 22.18 kg/m?? PHYSICAL EXAM Constitutional: Well developed, Well nourished, NAD, HENT: Normocephalic, Atraumatic, mucous membranes moist, Neck- trachea midline, No stridor. Eyes:EOMI, Conjunctiva normal, No discharge. Respiratory: Normal breath sounds, No respiratory distress, No wheezing. Cardiovascular: Normal heart rate, Regular rhythm, No murmurs, Borderline tachycardic. Abdominal: Soft, No tenderness, No rebound or guarding. Musculoskeletal: no deformity or malalignment Integument: Warm, Dry, No erythema, Neurologic: Alert & oriented x 3 Psychiatric: Affect normal, Cooperative. LAB: All pertinent labs reviewed and interpreted. Results for orders placed or performed during the hospital encounter of 05/13/24 Basic metabolic panel Result Value Ref Range Sodium 136 135 - 145 mmol/L Potassium 4.8 3.4 - 5.3 mmol/L Chloride 104 98 - 107 mmol/L Carbon Dioxide (CO2) 19 (L) 22 - 29 mmol/L Anion Gap 13 7 - 15 mmol/L Urea Nitrogen 9.1 6.0 - 20.0 mg/dL Creatinine 0.69 0.51 - 0.95 mg/dL GFR Estimate >90 >60 mL/min/1.73m2 Calcium 8.3 (L) 8.8 - 10.4 mg/dL Glucose 103 (H) 70 - 99 mg/dL Hepatic function panel Result Value Ref Range Protein Total 7.4 6.4 - 8.3 g/dL Albumin 4.1 3.5 - 5.2 g/dL Bilirubin Total 2.4 (H) <=1.2 mg/dL Alkaline Phosphatase 111 40 - 150 U/L AST 64 (H) 0 - 45 U/L ALT 36 0 - 50 U/L Bilirubin Direct Reticulocyte count Result Value Ref Range % Reticulocyte 25.9 (H) 0.5 - 2.0 % Absolute Reticulocyte 0.566 (H) 0.025 - 0.095 10e6/uL Result Value Ref Range Lactate Dehydrogenase 514 (H) 0 - 250 U/L Result Value Ref Range Troponin T, High Sensitivity <6 <=14 ng/L CBC with platelets and differential Result Value Ref Range WBC Count 17.4 (H) 4.0 - 11.0 10e3/uL RBC Count 2.16 (L) 3.80 - 5.20 10e6/uL Hemoglobin 7.1 (L) 11.7 - 15.7 g/dL Hematocrit 19.9 (L) 35.0 - 47.0 % MCV 92 78 - 100 fL MCH 32.9 26.5 - 33.0 pg MCHC 35.7 31.5 - 36.5 g/dL RDW 24.5 (H) 10.0 - 15.0 % Platelet Count 459 (H) 150 - 450 10e3/uL Manual Differential Result Value Ref Range % Neutrophils 63 % % Lymphocytes 25 % % Monocytes 11 % % Eosinophils 1 % % Basophils 0 % Absolute Neutrophils 11.0 (H) 1.6 - 8.3 10e3/uL Absolute Lymphocytes 4.4 0.8 - 5.3 10e3/uL Absolute Monocytes 1.9 (H) 0.0 - 1.3 10e3/uL Absolute Eosinophils 0.2 0.0 - 0.7 10e3/uL Absolute Basophils 0.0 0.0 - 0.2 10e3/uL RBC Morphology Confirmed RBC Indices Platelet Assessment Automated Count Confirmed. Platelet morphology is normal. Automated Count Confirmed. Platelet morphology is normal. Acanthocytes Slight (A) None Seen Elliptocytes Slight (A) None Seen Polychromasia Slight (A) None Seen Sickle Cells Moderate (A) None Seen Target Cells Slight (A) None Seen Extra Purple Top Tube Result Value Ref Range Hold Specimen JI ECG 12-LEAD WITH MUSE (LHE) Result Value Ref Range Systolic Blood Pressure mmHg Diastolic Blood Pressure mmHg Ventricular Rate 102 BPM Atrial Rate 102 BPM WI Interval 144 ms QRS Duration 84 ms QT 322 ms QTc 419 ms P [place] 32 degrees R AXIS 59 degrees T [place] 37 degrees Interpretation ECG Sinus tachycardia Nonspecific T wave abnormality Abnormal ECG When compared with ECG of 08-May-2024 15:13, No significant change was found Confirmed by SEE ED PROVIDER NOTE FOR, ECG INTERPRETATION ([id number]), design editor Leticia Warner ([id number]) on 05/13/2024 4:13:45 PM RADIOLOGY: Reviewed all pertinent imaging. Please see official radiology report. No orders to display EKG: Performed at: Impression: EKG shows sinus tachycardia 102 beats a minute, normal axis, normal WI, QRS and QTc durations, no ST elevations, T wave inversions in V1 through V3 seen on prior EKGs, I have independently reviewed and interpreted the EKG(s) documented above. [facility] Documentation: [facility] Diagnoses: I, Abraham Ashby, am serving as a scribe to document services personally performed by Shaheen Unger MDbased on my observation and the provider's statements to me. I, Shaheen Unger MD, attest that Regla is acting in a scribe capacity, has observed my performance of the services and has documentedthem in accordance with my direction. Shaheen Unger MD [facility] EMERGENCY ROOM [address] [address] Shaheen Unger MD 05/13/24 2600 LOCKER ROOM ATTENDANT * Jennifer Scherer RN - 05/13/2024 3:36 PM CST Pt arrives to ed with c/o of sickle cell crisis in the chest pain 02/02. Denies sob. Is feeling somewhat nauseous. Triage Assessment (Adult) Row Name 05/13/24 1535 Triage Assessment Airway WDL WDL Respiratory WDL Respiratory WDL WDL Cardiac WDL Cardiac WDL X;chest pain Chest Pain Assessment Chest Pain Location anterior chest, left Character sharp Precipitating Factors at rest Chest Pain Intervention 12-lead ECG obtained Cognitive/Neuro/Behavioral WDL Cognitive/Neuro/Behavioral WDL WDL LOCKER ROOM ATTENDANT documented in this encounter Plan of Treatment Not on file documented as of this encounter Goals Goal Patient Goal Type Associated Problems Recent Progress Patient-Stated? Author Pain Management General On track( 025 12:40 PM MENS LOCKER ROOM ATTENDANT) Yes Juhi Benson, RN Note: Goal Statement: [...] Procedure Name Priority Date/Time Associated Diagnosis Comments EXTRA TUBE STAT 05/13/2024 6:17 PM MENS LOCKER ROOM ATTENDANT EXTRA PURPLE TOP TUBE STAT 05/13/2024 6:17 PM MENS LOCKER ROOM ATTENDANT LACTATE DEHYDROGENASE STAT 05/13/2024 6:16 PM MENS LOCKER ROOM ATTENDANT MANUAL DIFFERENTIAL STAT 05/13/2024 4 :57 PM MENS LOCKER ROOM ATTENDANT CBC WITH PLATELETS AND DIFFERENTIAL STAT 05/13/2024 4:57 PM MENS LOCKER ROOM ATTENDANT TROPONIN T, HIGH SENSITIVITY STAT 05/13/2024 4:57 PM MENS LOCKER ROOM ATTENDANT CBC WITH PLATELETS & DIFFERENTIAL STAT 05/13/2024 4:57 PM MENS LOCKER ROOM ATTENDANT RETICULOCYTE COUNT STAT 05/13/2024 4: 57 PM MENS LOCKER ROOM ATTENDANT HEPATIC FUNCTION PANEL STAT 4:57 PM MENS LOCKER ROOM ATTENDANT BASIC METABOLIC PANEL STAT 05/13/2024 4:57 PM MENS LOCKER ROOM ATTENDANT ECG 12-LEAD WITH MUSE [facility] STAT 05/13/2024 3:38 PM MENS LOCKER ROOM ATTENDANT documented in this encounter Results * Extra Purple Top Tube (05/13/2024 6:17 PM MENS LOCKER ROOM ATTENDANT) Pathologist [facility] Hold Specimen JI 05/13/2024 7:31 PM MENS LOCKER ROOM ATTENDANT [facility] Blood STRUCTURE OF RIGHT UPPER LIMB / Unknown Venipuncture / Unknown 05/13/2024 6:17 PM MENS LOCKER ROOM ATTENDANT 05/13/2024 6:23 PM MENS LOCKER ROOM ATTENDANT us Shaheen Unger MD LAB - BLOOD ORDERABLES Final Res ult Performing Organization Address [facility] Co de Phone Number [facility] [address] [place] [address], [facility] * (ABNORMAL) Lactate Dehydrogenase (05/13/2024 6:16 PM MENS LOCKER ROOM ATTENDANT) [facility] Lactate Dehydrogenase 514(H) 0 - 250 U/L 05/13/2024 6:42 PM MENS LOCKER ROOM ATTENDANT [facility] Blood STRUCTURE OF RIGHT UPPER LIMB / Unknown Venipuncture / Unknown 05/13/2024 6:16 PM MENS LOCKER ROOM ATTENDANT 05/13/2024 6:23 PM MENS LOCKER ROOM ATTENDANT us Shaheen Unger MD LAB - BLOOD ORDERABLES Final Res ult Performing Organization Address City/[facility]/ZIP Co de Phone Number [facility] [address] [place] [address], [facility] * (ABNORMAL) Manual Differential (05/13/2024 4:57 PM MENS LOCKER ROOM ATTENDANT) % Neutrophils 63 % JARET 05/13/2024 5:54 PM [facility] % Lymphocytes 25 % JARET 05/13/2024 5:54 PM [facility] % Monocytes 11 % JARET 05/13/2024 5:54 PM [facility] % Eosinophils 1 % JARET 05/13/2024 5:54 PM [facility] % Basophils 0 % JARET 05/13/2024 5:54 PM [facility] Absolute Neutrophils 11.0(H) 1.6 - 8.3 10e3/uL JARET 05/13/2024 5:54 PM [facility] Absolute Lymphocytes 4.4 0.8 - 5.3 10e3/uL JARET 05/13/2024 5:54 PM [facility] Absolute Monocytes 1.9(H) 0.0 - 1.3 10e3/uL JARET 05/13/2024 5:54 PM [facility] Absolute Eosinophils 0.2 0.0 - 0.7 10e3/uL JARET 05/13/2024 5:54 PM [facility] Absolute Basophils 0.0 0.0 - 0.2 10e3/uL JARET 05/13/2024 5:54 PM [facility] RBC Morphology Confirmed RBC Indices JARET 05/13/2024 5:54 PM [facility] Platelet Assessment Automated Count Confirmed. Platelet morphology is normal. Automated Count Confirmed. Platelet morphology is normal. JARET 05/13/2024 5:54 PM [facility] Acanthocytes Slight(A) None Seen JARET 05/13/2024 5:54 PM [facility] Elliptocytes Slight(A) None Seen JARET 05/13/2024 5:54 PM [facility] Polychromasia Slight(A) None Seen JARET 05/13/2024 5:54 PM [facility] Sickle Cells Moderate(A) None Seen JARET 05/13/2024 5:54 PM [facility] Target Cells Slight(A) None Seen JARET 05/13/2024 5:54 PM [facility] Blood VENOUS LINE / Unknown Venipuncture / Unknown 05/13/2024 4:57 PM MENS LOCKER ROOM ATTENDANT 05/13/2024 5:09 PM MENS LOCKER ROOM ATTENDANT Shaheen Unger MD LAB - BLOOD ORDERABLES Final Res ult [facility] [address] [facility] [address] [place] [address], [facility] * (ABNORMAL) CBC with platelets and differential (05/13/2024 4:57 PM MENS LOCKER ROOM ATTENDANT) [facility] WBC Count 17.4(H) 4.0 - 11.0 10e3/uL 05/13/2024 5:54 PM [facility] RBC Count 2.16(L) 3.80 - 5.20 10e6/uL 05/13/2024 5:54 PM [facility] Hemoglobin 7.1(L) 11.7 - 15.7 g/dL 05/13/2024 5:54 PM [facility] Hematocrit 19.9(L) 35.0 - 47.0 % 05/13/2024 5:54 PM [facility] MCV 92 78 - 100 fL 05/13/2024 5:54 PM [facility] MCH 32.9 26.5 - 33.0 pg 05/13/2024 5:54 PM [facility] MCHC 35.7 31.5 - 36.5 g/dL 05/13/2024 5:54 PM [facility] RDW 24.5(H) 10.0 - 15.0 % 05/13/2024 5:54 PM [facility] Platelet Count 459(H) 150 - 450 10e3/uL 05/13/2024 5:54 PM [facility] Blood VENOUS LINE / Unknown Venipuncture / Unknown 05/13/2024 4:57 PM MENS LOCKER ROOM ATTENDANT 05/13/2024 5:09 PM MENS LOCKER ROOM ATTENDANT Shaheen Unger MD LAB - BLOOD ORDERABLES Final Res ult [facility] [address] [place] [address], [place] * Troponin T, High Sensitivity (05/13/2024 4:57 PM MENS LOCKER ROOM ATTENDANT) Pathologist [facility] Troponin T, High Sensitivity <6 <=14 ng/L 05/13/2024 5:31 PM MENS LOCKER ROOM ATTENDANT [facility] Comment: Either a High Sensitivity [...] VENOUS LINE / Unknown Venipuncture / Unknown 05/13/2024 4:57 PM MENS LOCKER ROOM ATTENDANT 05/13/2024 5:09 PM MENS LOCKER ROOM ATTENDANT us Shaheen Unger MD LAB - BLOOD ORDERABLES Final Res ult [facility] [address] [place], [place] [address] * (ABNORMAL) Reticulocyte count (05/13/2024 4:57 PM MENS LOCKER ROOM ATTENDANT) Pathologist [facility] % Reticulocyte 25.9(H) 0.5 - 2.0 % 05/13/2024 5:33 PM MENS LOCKER ROOM ATTENDANT [facility] Absolute Reticulocyte 0.566(H) 0.025 - 0.095 10e6/uL 05/13/2024 5:33 PM MENS LOCKER ROOM ATTENDANT [facility] Blood VENOUS LINE / Unknown Venipuncture / Unknown 05/13/2024 4:57 PM MENS LOCKER ROOM ATTENDANT 05/13/2024 5:09 PM MENS LOCKER ROOM ATTENDANT us Shaheen Unger MD LAB - BLOOD ORDERABLES Final Res ult [facility] [address] [place] [address], [facility] * (ABNORMAL) Hepatic function panel (05/13/2024 4:57 PM MENS LOCKER ROOM ATTENDANT) [facility] Protein Total 7.4 6.4 - 8.3 g/dL 05/13/2024 5:38 PM [facility] Albumin 4.1 3.5 - 5.2 g/dL 05/13/2024 5:38 PM [facility] Bilirubin Total 2.4(H) <=1.2 mg/dL 05/13/2024 5:38 PM [facility] Alkaline Phosphatase 111 40 - 150 U/L 05/13/2024 5:38 PM [facility] AST 64(H) 0 - 45 U/L 05/13/2024 5:38 PM [facility] ALT 36 0 - 50 U/L 05/13/2024 5:38 PM [facility] Bilirubin Direct 05/13/19 25 5:38 PM [facility] Comment:Unsatisfactory speci men - hemolyzed Blood VENOUS LINE / Unknown Venipuncture / Unknown 05/13/2024 4:57 PM MENS LOCKER ROOM ATTENDANT 05/13/2024 5:09 PM [facility] Shaheen Unger MD LAB - BLOOD ORDERABLES Final Res ult Performing Organization Address [facility]/State/ZIP Co de Phone Number [facility] [address] [place] [address] [place] [address], [facility] * (ABNORMAL) Basic metabolic panel (05/13/2024 4:57 PM MENS LOCKER ROOM ATTENDANT) [facility] Sodium 136 135 - 145 mmol/L 05/13/2024 5:31 PM [facility] Potassium 4.8 3.4 - 5.3 mmol/L 05/13/2024 5:31 PM [facility] Chloride 104 98 - 107 mmol/L 05/13/2024 5:31 PM [facility] Carbon Dioxide (CO2) 19(L) 22 - 29 mmol/L 05/13/2024 5:31 PM [facility] Anion Gap 13 7 - 15 mmol/L 05/13/2024 5:31 PM MENS LOCKER ROOM ATTENDANT [facility] Urea Nitrogen 9.1 6.0 - 20.0 mg/dL 05/13/2024 5:31 PM [facility] Creatinine 0.69 0.51 - 0.95 mg/dL 05/13/2024 5:31 PM [facility] GFR Estimate >90 >60 mL/min/1.7 3m2 05/13/2024 5:31 PM [facility] Comment:eGFR calculated usin g 2020 CKD-EPI equation. Calcium 8.3(L) 8.8 - 10.4 mg/dL 05/13/2024 5:31 PM [facility] Comment:Reference intervals for this test were updated on 11/09/2023 to reflect our healthy population more accurately. There may be differences in the flagging of prior results with similar values performed with this method. Those prior results can be interpreted in the context of the updated reference intervals. Glucose 103(H) 70 - 99 mg/dL 05/13/2024 5:31 PM [facility] Blood VENOUS LINE / Unknown Venipuncture / Unknown 05/13/2024 4:57 PM MENS LOCKER ROOM ATTENDANT 05/13/2024 5:09 PM MENS LOCKER ROOM ATTENDANT us Shaheen Unger MD LAB - BLOOD ORDERABLES Final Res ult [facility] [address] [place] [address], [facility] * ECG 12-LEAD WITH MUSE (LHE) (05/13/2024 3:38 PM MENS LOCKER ROOM ATTENDANT) Systolic Blood Pressure mmHg RADIOLOGY RESULTS Diastolic Blood Pressure mmHg RADIOLOGY RESULTS Ventricular Rate 102 BPM RAD IOLOGY RESULTS Atrial Rate 102 BPM RADIOLOG Y RESULTS [place] Interval 144 ms RADIOLOG Y RESULTS QRS Duration 84 ms RADIOLO GY RESULTS QT 322 ms RADIOLOGY RESULTS QTc 419 ms RADIOLOGY RESULTS P [place] 32 degrees RADIOLOGY RESULTS R AXIS 59 degrees RADIOLOGY RESULTS T [place] 37 degrees RADIOLOGY RESULTS Interpretation ECG Sinus tachycardia Nonspecific T wave abnormality Abnormal ECG When compared with ECG of 08-May-2024 15:13, No significant change was found Confirmed by SEE ED PROVIDER NOTE FOR, ECG INTERPRETATION ([id number]), design editor Leticia Warner ([id number]) on 05/13/2024 4:13:45 PM RADIOLOGY RESULTS 05/13/2024 3:38 PM MENS LOCKER ROOM ATTENDANT 05/13/2024 4:13 PM M[employer] L[employer] ROOM ATTENDANT Shaheen Unger MD ECG ORDERABLES Edited Result - Final RADIOLOGY RESULTS documented in this encounter Visit Diagnoses Diagnosis 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 documented in this encounter Administered Medications Inactive Administered Medications - up to 3 most recent administrations Medication Order MAR Action Action Date Dose Rate Site diphenhydrAMINE (BENADRYL) injection 25 mg 25 mg, Intravenous, ONCE, On 05/13/24 at 1800, For 1 dose $Given 05/13/2024 5:38 PM [employer] ROOM ATTENDANT 25 mg diphenhydrAMINE (BENADRYL) injection 25 mg 25 mg, Intravenous, ONCE, On 05/13/24 at 1900, For 1 dose $Given 05/13/2024 7:05 PM [employer] ROOM ATTENDANT 25 mg HYDROmorphone (DILAUDID) injection 1 mg 1 mg, Intravenous, EVERY 1 HOUR PRN, moderate pain, severe pain, Starting on 05/13/24 at 1610, For 1 dose, Notify the provider to assess for uncontrolled pain or analgesic side effects. Hold while on IV DOCKET CLERK or with regular IV opioid dosing. $Given 05/13/2024 4:58 PM [employer] ROOM ATTENDANT 1 mg HYDROmorphone (DILAUDID) injection 1 mg 1 mg, Intravenous, ONCE, On 05/13/24 at 1800, For 1 dose $Given 05/13/2024 6:00 PM M[employer] ROOM ATTENDANT 1 mg HYDROmorphone (DILAUDID) injection 1 mg 1 mg, Intravenous, ONCE, On 05/13/24 at 1930, For 1 dose $Given 05/13/2024 7:28 PM [employer] ROOM ATTENDANT 1 mg lactated ringers BOLUS 1,000 mL Intravenous, 1,000 mL, ONCE, at 500 mL/hr, Administer over 2 Hours, On 05/13/24 at 1630, For 1 dose $New Bag 05/13/2024 5:01 PM M[employer] L[employer] ROOM ATTENDANT 1,000 mLs 500 mL/hr documented in this encounter Active and Recently Administered Medications Times are shown in M[employer] L[employer] ROOM ATTENDANT. Scheduled Medication Order 05/11/2024 05/12/202405/13/2024 diphenhydrAMINE (BENADRYL) injection 25 mg (COMPLETED) 25 mg, Intravenous, ONCE, On 05/13/24 at 1800, For 1 dose 1738 ($Given - Provi nas: Cherrie Garcia RN) diphenhydrAMINE (BENADRYL) injection 25 mg (COMPLETED) 25 mg, Intravenous, ONCE, On 05/13/24 at 1900, For 1 dose 1905 ($Given - Provi nas: Cherrie Garcia RN) HYDROmorphone (DILAUDID) injection 1 mg (COMPLETED) 1 mg, Intravenous, ONCE, On 05/13/24 at 1800, For 1 dose 1800 ($Given - Provi nas: Cherrie Garcia RN) HYDROmorphone (DILAUDID) injection 1 mg (COMPLETED) 1 mg, Intravenous, ONCE, On 05/13/24 at 1930, For 1 dose 1928 ($Given - Provi nas: Olinda Mancera RN) lactated ringers BOLUS 1,000 mL (COMPLETED) Intravenous, 1,000 mL, ONCE, at 500 mL/hr, Administer over 2 Hours, On 05/13/24 at 1630, For 1 dose 1701 ($New Bag - Pro vider: Cherrie Garcia RN)1936 (Stopped - Provider: Olinda Mancera RN) PRN Medication Order 05/11/2024 05/12/2024 05/13/2024 HYDROmorphone (DILAUDID) injection 1 mg (COMPLETED) 1 mg, Intravenous, EVERY 1 HOUR PRN, moderate pain, severe pain, Starting on 05/13/24 at 1610, For 1 dose, Notify the provider to assess for uncontrolled pain or analgesic side effects. Hold while on IV DOCKET CLERK or with regular IV opioid dosing. 1658 ($Given - Provi nas: Cherrie Garcia RN) documented in this encounter Care Teams Supervisor [employer] Relationship Specialty Start Date End Date No Ref-Primary, Physician PCP - General 03/15/24 06/17/24 Mor Ramsey Medical Student 04/03/24 documented as of this encounter
--- OUTSIDE RECORDS SUMMARY | 2024-06-21 22:19 | XMS_ITS | Encounter Summary ---
Author Organization [facility] Address [address] [place] [address] Care Team Providers Care Application Integration Engineer Name Role Phone No Ref-Primary, Physician Primary Care Provider Mor Ramsey Unavailable Unavailable Case Samuel MD Unavailable [phone] Reason for Visit * Reason Comments Abdominal Pain ULQ Encounter Details Date Type Department Care Team (Late st Contact Info) Description 05/23/2024 9:03 PM SHEET TURNER - 05/23/2024 11:37 PM [facility] Emergency [facility] Emergency Room [facility] [place] [address] Marilia Summers MD [address] [place] [address] [id number] Sickle cell pain crisis (H); Leukocytosis, unspecified type; Left-sided chest wall pain Discharge Disposition: Home or Self Care Social [...] on file Legal Sex Female 8:25 AM SHEET TURNER Gender Identity Not on file Sexual Orientation Not on file documented as of this encounter Last Filed Vital Signs Vital Sign Reading Time Taken Comments Blood Pressure 123/71 05/23/2024 9:53 PM SHEET TURNER Pulse 95 05/23/2024 9:53 PM SHEET TURNER Temperature 37.7 C (99.9 F) 05/23/2024 4:48 PM SHEET TURNER Respiratory Rate 18 05/23/2024 4:48 PM SHEET TURNER Oxygen Saturation 98% 05/23/2024 9:53 PM SHEET TURNER Inhaled Oxygen Concentration - - Weight 51.7 kg (114 lb) 05/23/2024 4:48 PM SHEET TURNER Height 154.9 cm (5' 1) 05/23/2024 4:48 PM SHEET TURNER Body Mass Index 21.54 05/23/2024 4:48 PM SHEET TURNER documented in this encounter Discharge Instructions * Discharge Instructions* Marilia Summers MD - 05/23/2024 10:34 PM SHEET TURNER Keep your appointment for your port in 2 days. Continue to work with oncology/hematology on pain control. The Lidoderm patch helps with the area of pain underneath your left breast on the chest wall, you can get [id number] muscle pain patches that have the same numbing medicine in them and put it on for 12 hours at a time to help with your discomfort. Obviously return to the emergency department as needed if you are having difficulty with breathing. T TURNER * Attachments The following attachments cannot be sent through Care Everywhere. * Sickle Cell Crisis (Iranian) documented in this encounter Medications at Time [...] as of this encounter ED Notes * Sanjay Purdy RN - 05/23/2024 9:39 PM CST Pt complains of left side rib /chest pain. Seen for similar last night T TURNER * Marilia Summers MD - 05/23/2024 6:24 PM CST Emergency Department Encounter Evaluation Date & Time: No admission date for patient encounter. CHIEF COMPLAINT: Abdominal Pain (ULQ) Triage Note:Pt arrives with c/o abdominal pain (ULQ). Pt seen here yesterday for the same pain and sickle cell pain. Reports feeling better when she left yesterday but now pain is back. Temp: 99.9 FINAL IMPRESSION: ICD-10-CM 1. Sickle cell pain crisis (H) D57.00 2. Leukocytosis, unspecified type D72.829 3. Left-sided chest wall pain R07.89 Impression and Plan ED COURSE & MEDICAL DECISION MAKING: ED Course as of 05/23/242250 Tue May 23, 2024 183 This patient her examination argues against this being acute chest syndrome. She has had her BMP checked many many times in the last 2 weeks so no need to repeat that today. Will do CT scan because of the recent mildly abnormal chest x-rays to get a better idea if she is actually collecting fluid or not now. That with EKG BNP and Trope. Otherwise, as usual will get CBC and reticulocyte count. Started on oxygen while in the waiting room and further treatments depending on results. 1830 I reviewed her last couple ER charts and cxr and I myself have seen her within the last month.Reviewed labs done within the last few weeks. test negative as of 05/20/24, no need to repeat 2199 No evidence of heart strain. Troponin and BNP are normal. Her hemoglobin is staying stable at 7.9 checks have been 7-8 range in the last month. She continues to form reticulocyte well. Wbc has ranged from 14-18 over the last month. 2235 She is still getting her fluids. She would like to get her last dose of pain medication but does note that she feels better. She still has a focal area of pain which is really what we have been working up underneath her left breast and on my initial examination it certainly seem to be within the chest wall so we talked about trying a Lidoderm patch on that area which she would like to try. However, she agrees she does not feel she needs to be in the hospital she has not had difficulty breathing with this since her pain is better so does feel comfortable discharging home and would like todischarge home because she wants to make it to her port appointment on which is in 2 days.After that she notes the plan discussed with the oncologist/sleep technician is to do 3 times a week infusion center appointments to help with her symptoms and do blood exchanges/plasmapheresis. At the conclusion of the encounter I discussed the results of all the tests and the disposition. The questions were answered. The patient or family acknowledged understanding and was agreeable with the care plan. 0 minutes of critical care time MEDICATIONS GIVEN IN THE EMERGENCY DEPARTMENT: Medications Lidocaine (LIDOCARE) 4 % Patch 1 patch (has no administration in time range) HYDROmorphone (DILAUDID) injection 2 mg (has no administration in time range) iopamidol (ISOVUE-370) solution 75 mL (75 mLs Intravenous $Given 05/23/242132) HYDROmorphone (DILAUDID) injection 2 mg (2 mg Intravenous $Given 05/23/242220) lactated ringers BOLUS 1,000 mL (1,000 mLs Intravenous $New Bag 05/23/242204) diphenhydrAMINE (BENADRYL) capsule 50 mg (50 mg Oral $Given 05/23/242202) ondansetron (ZOFRAN) injection 8 mg (8 mg Intravenous $Given 05/23/242206) Hydromorphone 2 mg iv at 2315 NEW PRESCRIPTIONS STARTED AT TODAY'S ED VISIT: New Prescriptions No medications on file HPI HPI Gianna Hernández is a 29 year old female with a pertinent history of sickle disease who presents to this ED through triage for evaluation of chest pain. [facility] and since that time has been seen in the emergency department greater than 40 times. Shewas seen here yesterday, May 21, 2019, , , , , 18, 13th, 12th, 11th, 10th, eighth, seventh twice, on the sixth she was seen by oncology at the [facility] for the first time, also in the ER on the third, and the first. Over the last week she has come in complaining of chest pain with this multiple times. They have done chest x-rays that have showed a nonspecific finding on the right lower lobe but today her pain florentin her left lower chest. She has stated that it feels similar to when she has had a PE in the past.Most recently she is had CT PE run done on 04 May as well as on , and March 19. Ea ch of these CAT scans has been negative for PE. Patient states she did call the oncology group within the last week. They informed her they cannot make any changes to her pain control until she gets her port in which is planned to be done here on May 25 and then she has her follow-up with them scheduled on May 29 in the meantime she doessay that she continues to use her Dilaudid at home and does have that available. She states the area of pain is under her left breast it is pleuritic and she feels that the area under her skin there is a little bit swollen. No recent trauma. She did disclose when she initially presented to oncology that she has previous history of PE. REVIEW OF SYSTEMS: Review of Systems remainder [...] Temp src Pulse Resp SpO2 Height Weight 05/23/24 2153 123/71 -- -- 95 -- 98 % -- -- 05/23/24 2115 124/77 -- -- 90 -- 98 % -- -- 05/23/24 1648 111/56 99.9 ??F (37.7 ??C) Oral 100 18 94 % 1.549 m (5' 1) 51.7 kg (114 lb) PHYSICAL EXAM: Constitutional: patient walks slowly across the waiting room but appears in nad. Petite female HENT: Normocephalic, posterior pharynx wnl, mucous membranes [...] No erythematous or swollen major joints, Integument: normal color. Area ofs concern under left breast on lower ribs is not swollen but is tender to light touch. She notes pain with inspiration. Neurologic: Alert & oriented x 3, Normal motor function, Normal sensory function, No focal deficits noted. Normal speech. Psychiatric: Affect normal, Judgment normal, Mood normal. Results LAB AND RADIOLOGY: All pertinent labs reviewed and interpreted Results for orders placed or performed during the hospital encounter of 05/23/24 CT Chest Pulmonary Embolism w Contrast Status: None Narrative EXAM: CT CHEST PULMONARY EMBOLISM W CONTRAST LOCATION: [facility] DATE: 05/23/2024 INDICATION: patient with sickle cell. acute chest pain similar to pe in the past. COMPARISON: Chest x-ray 05/22/2024, CTA chest 05/04/2024 and 03/15/2024. Report of CT [facility] from 03/13/2023 is also available. TECHNIQUE: CT chest pulmonary angiogram during arterial phase injection of IV contrast. Multiplanarreformats and MIP reconstructions were performed. Dose reduction [...] both humeral heads. No concerning bone lesions. Impression IMPRESSION: 1. Bilateral pulmonary nodules stable since [...] 7. Other noncritical findings as noted above. CBC (+ platelets, no diff) Status: Abnormal Result Value Ref Range WBC Count 17.2 [...] (H) 150 - 450 10e3/uL Reticulocyte count Status: Abnormal Result Value Ref Range % Reticulocyte 28.1 (H) 0.5 - 2.0 % Absolute Reticulocyte 0.698 (H) 0.025 - 0.095 10e6/uL Troponin T, High Sensitivity Status: Normal Result Value Ref Range Troponin T, High Sensitivity <6 <=14 ng/L N terminal pro BNP outpatient Status: Normal Result Value Ref Range N Terminal Pro BNP Outpatient 74 0 - 450 pg/mL ECG 12-LEAD WITH MUSE (LHE) Status: None Result Value Ref Range Systolic Blood Pressure mmHg Diastolic Blood Pressure mmHg Ventricular Rate 77 BPM Atrial Rate 77 BPM HI Interval 160 ms QRS Duration 82 ms QT 362 ms QTc 409 ms P [place] 61 degrees R AXIS 92 degrees T [place] 49 degrees Interpretation ECG Sinus rhythm Rightward axis Borderline ECG When compared with ECG of 22-May-2024 15:14, Nonspecific T wave abnormality no longer evident in Inferior leads Confirmed by SEE ED PROVIDER NOTE FOR, ECG INTERPRETATION (4000), health editor SELMA GARRISON ([id number]) on 05/23/2024 7:30:33 PM ECG: Performed at: 1854 Impression: nsr rate of 77, wandering baseline somewhat limits exam. R axis. Pr 160ms, qrs 82ms, qtc 409ms, prt axes 61 92 49. Compared to 05/22/[address] segments in inferior limb leads no longer present. I have independently reviewed and interpreted the EKS(s) documented above PROCEDURES: Procedures: [facility] Documentation Medical Decision Making Obtained supplemental history:Supplemental history obtained?: No Reviewed external records: External records reviewed?: Documented in chart Care impacted by chronic illness:Other: sickle cell Did you consider but not order tests?: Work up considered but not performed and documented in chart, if applicable Did you interpret images independently?: Independent interpretation of ECG and images noted in documentation, when applicable. Consultation discussion with other provider:Did you involve another provider (risk consultant, , pharmacy, etc.)?: No Discharge. I prescribed additional prescription strength medication(s) as charted. See documentation for any additional details. MIPS: Not Applicable Marilia Summers MD Emergency Medicine [facility] EMERGENCY ROOM Marilia Summers MD 05/23/24 [id number] T TURNER * Carmen Elkins RN - 05/23/2024 4:51 PM CST Pt arrives with c/o abdominal pain (ULQ). Pt seen here yesterday for the same pain and sickle cell pain. Reports feeling better when she left yesterday but now pain is back. Temp: 99.9 T TURNER documented in this encounter Plan of Treatment Not on file documented as of this encounter Goals Goal Patient Goal Type Associated Problems Recent Progress Patient-Stated? Author Pain Management General On track( 025 12:40 PM SHEET TURNER) Yes Juhi Benson, SOFIA Note: Goal Statement: [...] Procedure Name Priority Date/Time Associated Diagnosis Comments CT CHEST PULMONARY EMBOLISM W CONTRAST STAT 05/23/2024 9:33 PM SHEET TURNER TROPONIN T, HIGH SENSITIVITY STAT 05/23/2024 9:02 PM SHEET TURNER RETICULOCYTE COUNT STAT 05/23/2024 9 :02 PM SHEET TURNER N TERMINAL PRO BNP OUTPATIENT STAT 05/23/2024 9:02 PM SHEET TURNER CBC WITH PLATELETS STAT 05/23/2024 9: 02 PM SHEET TURNER ECG 12-LEAD WITH MUSE SJN,SJO,WWH STAT 05/23/2024 6:54 PM SHEET TURNER documented in this encounter Results * CT Chest Pulmonary Embolism w Contrast (05/23/2024 9:33 PM SHEET TURNER) Anatomical Region Laterality Modality Chest, SUBRAD CT BODY, UMP CT CHEST Computed Tomography 05/23/2024 9:33 PM SHEET TURNER Impressions 05/23/2024 10:12 PM SHEET TURNER IMPRESSION: 1. Bilateral pulmonary nodules stable since [...] as noted above. Narrative 05/23/2024 10:12 PM SHEET TURNER EXAM: CT CHEST PULMONARY EMBOLISM W CONTRAST LOCATION: [facility] DATE: 05/23/2024 INDICATION: patient with sickle cell. acute chest pain similar to pe in the past. COMPARISON: Chest x-ray 05/22/2024, CTA chest 05/04/2024 and 03/15/2024. Report of CT chest from [facility] from 03/13/2023 is also available. TECHNIQUE: CT [...] CT CHEST PULMONARY EMBOLISM W CONTRAST LOCATION: [facility] DATE: 05/23/2024 INDICATION: patient with sickle cell. acute chest pain similar to pe inthe past. COMPARISON: Chest x-ray 05/22/2024, CTA chest 05/04/2024 and 03/15/2024.Report of CT chest from [facility] from 03/13/2023 is alsoavailable. TECHNIQUE: CT chest [...] 7. Other noncritical findings as noted above. Marilia Summers MD IMG CT ORDERABLES Final Resu lt * N terminal pro BNP outpatient (05/23/2024 9:02 PM SHEET TURNER) [facility] N Terminal Pro BNP Outpatient 74 0 - 450 pg/mL 05/23/2024 9:39 PM SHEET TURNER [facility] Comment: Reference range shown and results [...] Unknown Venipuncture / Unknown 05/23/2024 9:02 PM SHEET TURNER 05/23/2024 9:10 PM SHEET TURNER Marilia uSmmers MD LAB - BLOOD ORDERABLES Final Result Performing Organization Address [facility]/ZIP Co de Phone Number [facility] [address] [place] [address], [facility] * Troponin T, High Sensitivity (05/23/2024 9:02 PM SHEET TURNER) Troponin T, High Sensitivity <6 <=14 ng/L 05/23/2024 9:39 PM SHEET TURNER [facility] Comment: Either a High Sensitivity Troponin [...] Unknown Venipuncture / Unknown 05/23/2024 9:02 PM SHEET TURNER 05/23/2024 9:10 PM SHEET TURNER Marilia Summers MD LAB - BLOOD ORDERABLES Final Result Performing Organization Address [facility] Co de Phone Number [facility] [address] [place] [address], [facility] * (ABNORMAL) Reticulocyte count (05/23/2024 9:02 PM SHEET TURNER) % Reticulocyte 28.1(H) 0.5 - 2.0 % 05/23/2024 9:35 PM SHEET TURNER [facility] Absolute Reticulocyte 0.698(H) 0.025 - 0.095 10e6/uL 05/23/2024 9:35 PM SHEET TURNER [facility] Blood BLOOD SPECIMEN / Unknown Venipuncture / Unknown 05/23/2024 9:02 PM SHEET TURNER 05/23/2024 9:10 PM SHEET TURNER us Marilia Summers MD LAB - BLOOD ORDERABLES Final Result [facility] [address] [place] [address], [facility] * (ABNORMAL) CBC (+ platelets, no diff) (05/23/2024 9:02 PM SHEET TURNER) WBC Count 17.2(H) 4.0 - 11.0 10e3/uL 05/23/2024 9:18 PM [facility] RBC Count 2.45(L) 3.80 - 5.20 10e6/uL 05/23/2024 9:18 PM [facility] Hemoglobin 7.9(L) 11.7 - 15.7 g/dL 05/23/2024 9:18 PM [facility] Hematocrit 22.4(L) 35.0 - 47.0 % 05/23/2024 9:18 PM [facility] MCV 91 78 - 100 fL 05/23/2024 9:18 PM [facility] MCH 32.2 26.5 - 33.0 pg 05/23/2024 9:18 PM [facility] MCHC 35.3 31.5 - 36.5 g/dL 05/23/2024 9:18 PM [facility] RDW 24.4(H) 10.0 - 15.0 % 05/23/2024 9:18 PM [facility] Platelet Count 519(H) 150 - 450 10e3/uL 05/23/2024 9:18 PM [facility] Blood BLOOD SPECIMEN / Unknown Venipuncture / Unknown 05/23/2024 9:02 PM SHEET TURNER 05/23/2024 9:10 PM SHEET TURNER us Marilia Summers MD LAB - BLOOD ORDERABLES Final Result [facility] [address] [place], [place] [address], [facility] * ECG 12-LEAD WITH MUSE (LHE) (05/23/2024 6:54 PM SHEET TURNER) Systolic Blood Pressure mmHg RADIOLOGY RESULTS Diastolic Blood Pressure mmHg RADIOLOGY RESULTS Ventricular Rate 77 BPM RAD IOLOGY RESULTS Atrial Rate 77 BPM RADIOLOG Y RESULTS HI Interval 160 ms RADIOLOG Y RESULTS QRS Duration 82 ms RADIOLO GY RESULTS QT 362 ms RADIOLOGY RESULTS QTc 409 ms RADIOLOGY RESULTS P [place] 61 degrees RADIOLOGY RESULTS R AXIS 92 degrees RADIOLOGY RESULTS T [place] 49 degrees RADIOLOGY RESULTS Interpretation ECG Sinus rhythm Rightward axis Borderline ECG When compared with ECG of 22-May-2024 15:14, Nonspecific T wave abnormality no longer evident in Inferior leads Confirmed by SEE ED PROVIDER NOTE FOR, ECG INTERPRETATION (4000), health editor SELMA GARRISON ([id number]) on 05/23/2024 7:30:33 PM RADIOLOGY RESULTS 05/23/2024 6:54 PM SHEET TURNER 05/23/2024 7:30 PM SHEET TURNER us Marilia Summers MD ECG ORDERABLES Edited Resul t - Final RADIOLOGY RESULTS documented in this encounter Visit Diagnoses Diagnosis 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 Leukocytosis, unspecified type Left-sided chest wall pain Painful respiration documented in this encounter Administered Medications Inactive Administered Medications - up to 3 most recent administrations Medication Order MAR Action Action Date Dose Rate Site diphenhydrAMINE (BENADRYL) capsule 50 mg 50 mg, Oral, ONCE, On Wed05/23/24 at 2200, For 1 dose $Given 05/23/2024 10:03 PM SHEET TURNER 50 mg HYDROmorphone (DILAUDID) injection 2 mg 2 mg, Intravenous, EVERY 1 HOUR PRN, moderate pain, Starting on Wed05/23/24 at 2115, For 2 doses $Given 05/23/2024 10:21 PM SHEET TURNER 2 mg $Given 05/23/2024 9:18 PM SHEET TURNER 2 mg HYDROmorphone (DILAUDID) injection 2 mg 2 mg, Intravenous, ONCE, On Wed05/23/24 at 2330, For 1 dose $Given 05/23/2024 11:20 PM SHEET TURNER 2 mg iopamidol (ISOVUE-370) solution 75 mL 75 mL, Intravenous, ONCE, On Wed05/23/24 at 2130, For 1 dose $Given 05/23/2024 9:33 PM SHEET TURNER 75 mLs lactated ringers BOLUS 1,000 mL Intravenous, 1,000 mL, ONCE, On Wed05/23/24 at 2200, For 1 dose $New Bag 05/23/2024 10:05 PM SHEET TURNER 1,000 mLs Lidocaine (LIDOCARE) 4 % Patch 1 patch 1 patch, Transdermal, Administer over 12 Hours, ONCE, On Wed05/23/24 at 2300, For 1 dose, Apply patch(s) to area of most pain under the left breast on the chest wall. To prevent lidocaine toxicity, patient should be patch free for 12 hrs daily. Patches may be cut to smaller size prior to removing release liner. Reminder: Remove previous patch before applying new patch. NEVER APPLY HEAT OVER PATCH which increases absorption and may lead to local anesthetic toxicity. Do not apply over area where liposomal bupivacaine was injected for 96 hours post injection. $Patch/Med Applied 05/23/2024 10:53 PM SHEET TURNER 1 patch Left Chest ondansetron (ZOFRAN) injection 8 mg 8 mg, Intravenous, ONCE PRN, nausea, vomiting, Administer over 2-5 Minutes, Starting on Wed05/23/24 at 2159, For 1 dose $Given 05/23/2024 10:07 PM SHEET TURNER 8 mg documented in this encounter Active and Recently Administered Medications Times are shown in SHEET TURNER. Scheduled Medication Order 05/21/2024 05/22/2024 05/23/2024 diphenhydrAMINE (BENADRYL) capsule 50 mg (COMPLETED) 50 mg, Oral, ONCE, On Wed05/23/24 at 2200, For 1 dose 2202 ($Given - Provi nas: Sanjay Purdy RN) HYDROmorphone (DILAUDID) injection 2 mg (COMPLETED) 2 mg, Intravenous, ONCE, On Wed05/23/24 at 2330, For 1 dose 2320 ($Given - Provi nas: Jennifer Scherer RN) iopamidol (ISOVUE-370) solution 75 mL (COMPLETED) 75 mL, Intravenous, ONCE, On Wed05/23/24 at 2130, For 1 dose 2133 ($Given - Provi nas: LUIS Kruse) lactated ringers BOLUS 1,000 mL (COMPLETED) Intravenous, 1,000 mL, ONCE, On Wed05/23/24 at 2200, For 1 dose 2204 ($New Bag - Pro vider: Sanjay Purdy RN)2329 (Stopped - Provider: Jennifer Scherer RN) Lidocaine (LIDOCARE) 4 % Patch 1 patch 1 patch, Transdermal, Administer over 12 Hours, ONCE, On Wed05/23/24 at 2300, For 1 dose, Apply patch(s) to area of most pain under the left breast on the chest wall. To prevent lidocaine toxicity, patient should be patch free for 12 hrs daily. Patches may be cut to smaller size prior to removing release liner. Reminder: Remove previous patch before applying new patch. NEVER APPLY HEAT OVER PATCH which increases absorption and may lead to local anesthetic toxicity. Do not apply over area where liposomal bupivacaine was injected for 96 hours post injection. 2253 ($Patch/Med Sukhjinder lied - Provider: Sanjay Purdy RN)2337 (Due: Patch/Med Removed - Provider: Orders Generic Provider - Comment: Time automatically adjusted from order being discontinued) PRN Medication Order 05/21/2024 05/22/2024 05/23/2024 HYDROmorphone (DILAUDID) injection 2 mg (COMPLETED) 2 mg, Intravenous, EVERY 1 HOUR PRN, moderate pain, Starting on Wed05/23/24 at 2115, For 2 doses 2117 ($Given - Provi nas: Sanjay Purdy RN)222 ($Given - Provider: Sanjay Purdy, SOFIA) ondansetron (ZOFRAN) injection 8 mg (COMPLETED) 8 mg, Intravenous, ONCE PRN, nausea, vomiting, Administer over 2-5 Minutes, Starting on Wed05/23/24 at 2159, For 1 dose 2206 ($Given - Provi nas: Sanjay Purdy, RN) documented in this encounter Care Teams Application Integration Engineer Relationship Specialty Start Date End Date No Ref-Primary, Physician PCP - General 03/15/24 06/17/24 Mor Ramsey Medical Student 04/03/24 Case Samuel MD [address] [place] [address], [address] [place] [address] Assigned Pediatric Specialist Provider 05/18/24 documented as of this encounter
--- OUTSIDE RECORDS SUMMARY | 2024-06-21 22:19 | XMS_ITS | Encounter Summary ---
Author Organization [facility] Address [facility] [place] [address] Care Team Providers Care Otr Owner Operator Truck Driver Name Role Phone No Ref-Primary, Physician Primary Care Provider Mor Ramsey Unavailable Unavailable Encounter Details Date Type Department Care Team (Latest Contact Info) Description 05/13/2024 Travel Social History Tobacco Use Types Packs/Day [...] on file Legal Sex Female 8:25 AM COIL CLEANER Gender Identity Not on file Sexual Orientation Not on file documented as of this encounter Plan of Treatment Not on file documented as of this encounter Goals Goal Patient Goal Type Associated Problems Recent Progress Patient-Stated? Author Pain Management General On track( 025 12:40 PM COIL CLEANER) Yes Juhi Benson, RN Note: Goal Statement: [...] on filedocumented in this encounter Care Teams Otr Owner Operator Truck Driver Relationship Specialty Start Date End Date No Ref-Primary, Physician PCP - General 03/15/24 06/17/24 Mor Ramsey Medical Student 04/03/24 documented as of this encounter
--- OUTSIDE RECORDS SUMMARY | 2024-06-21 22:19 | XMS_ITS | Encounter Summary ---
Author Organization [place] Address [facility] 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 Author Pain Management General On track( 025 12:40 PM BAGGAGE SCREENER) Yes Juhi Benson, RN Note: Goal Statement: [...] on filedocumented in this encounter Care Teams Fryline Attendant Relationship Specialty Start Date End Date No Ref-Primary, Physician PCP - General 03/15/24 06/17/24 Mor Ramsey Medical Student 04/03/24 documented as of this encounter
--- OUTSIDE RECORDS SUMMARY | 2024-06-21 22:19 | XMS_ITS | Encounter Summary ---
Author Organization [place] Address [address] [place] [address] Care Team Providers Care Farm Manager Name Role Phone No Ref-Primary, Physician Primary Care Provider Mor Ramsey Unavailable Unavailable Reason for Visit * Reason Comments Sickle Cell Pain Crisis Encounter Details Date Type Department Care Team ([facility] st Contact Info) Description 05/16/2024 9:41 PM JUDICIAL REGISTRAR - 05/17/2024 12:53 AM [facility] Emergency [facility] Emergency Room [facility] [place] [address] Guille Davis, DO [address] [place] [id number] Sickle cell pain crisis (H) Discharge Disposition: [...] on file Legal Sex Female 8:25 AM JUDICIAL REGISTRAR Gender Identity Not on file Sexual Orientation Not on file documented as of this encounter Last Filed Vital Signs Vital Sign Reading Time Taken Comments Blood Pressure 107/62 05/17/2024 12:00 AM JUDICIAL REGISTRAR Pulse 93 05/17/2024 12:00 AM JUDICIAL REGISTRAR Temperature 36.8 C (98.3 F) 05/16/2024 9:35 PM JUDICIAL REGISTRAR Respiratory Rate 15 05/17/2024 12:00 AM JUDICIAL REGISTRAR Oxygen Saturation 94% 05/17/2024 12:00 AM JUDICIAL REGISTRAR Inhaled Oxygen Concentration - - Weight 52.2 kg (115 lb) 05/16/2024 9:35 PM JUDICIAL REGISTRAR Height 154.9 cm (5' 1) 05/16/2024 9:35 PM JUDICIAL REGISTRAR Body Mass Index 21.73 05/16/2024 9:35 PM JUDICIAL REGISTRAR documented in this encounter Discharge Instructions * Attachments The following attachments cannot be sent through Care Everywhere. * Sickle Cell Crisis (Divehi) documented in this encounter Medications at Time [...] ED Notes * Tatiana Rodriguez RN - 05/17/2024 12:28 AM CST Patient left prior to discharge papers being printed. States she doesn't need them. CIAL REGISTRAR * Obie Schofield RN - 05/17/2024 12:16 AM CST Pt says she'll be good for discharge after this 3rd dose of Dilaudid. Provider notified. Pt is vitally stable and pain under control and ok with the plan of care. All questions were answered. CIAL REGISTRAR * Obie Schofield RN - 05/16/2024 11:40 PM CST Pt received 2nd dose of Dilaudid. Pt says the 1st dose has helped with her pain, bringing it down to 7/10 from 9/10. She has relief from itchiness following Benadryl as well. Pt is resting in bed, onher phone, and denies other needs at this time. On continuous pulse ox. CIAL REGISTRAR * Guille Davis DO - 05/16/2024 9:53 PM CST EMERGENCY DEPARTMENT ENCOUNTER NAME: Gianna Hernández AGE: [age] year old female DATE OF : 1995 EVALUATION DATE & TIME: 05/16/2024 9:41 PM PCP: No Ref-Primary, Physician ED PROVIDER: Guille Davis D.O. Chief Complaint Patient presents with Sickle Cell Pain Crisis FINAL IMPRESSION: 1. Sickle cell pain crisis (H) ED COURSE & MEDICAL DECISION MAKIN:53 PM I met with the patient to gather history and to perform my initial exam. I discussed the plan for care while in the Emergency Department. Pertinent Labs & Imaging studies reviewed. (See chart for details) 29 year old female presents to the Emergency Department for evaluation of body pain. Patient has known history of sickle cell disease, and frequent visits for sickle cell pain crisis. Tonight there is no evidence of be suggestive of acute chest as she has no chest pain or shortness of breath. Pain is more typical of her normal sickle cell pain crises. Lab testing this patient was largely unremarkable including stable hemoglobin, no evidence of influenza, COVID-19, RSV. Clinically I doubt infectious etiology triggering this. Patient was given Benadryl and Dilaudid in the emergency department with significant improvement of her symptoms. She felt comfortable enough for discharge. Will have follow-up as an outpatient with primary care provider. Return precautions were discussed. Medical Decision Making Obtained supplemental history:Supplemental history obtained?: No Reviewed external records: External records reviewed?: No Care impacted by chronic illness:Documented in Chart Did you consider but not order tests?: Work up considered but not performed and documented in chart, if applicable Did you interpret images independently?: Independent interpretation of ECG and images noted in documentation, when applicable. Consultation discussion with other provider:Did you involve another provider (oracle manufacturing consultant, , pharmacy, etc.)?: No Discharge. No recommendations on prescription strength medication(s). See documentation for any additional details. MIPS: Not Applicable At the conclusion of the encounter I discussed the results of all of the tests and the disposition.The questions were answered. The patient or family acknowledged understanding and was agreeable with the care plan. HPI Patient information was obtained from: the patient Gianna Hernández is a 29 year old female who presents to the emergency department with complaint of allover body pains consistent with her previous episodes of sickle cell crisis. She denies any chest pain or shortness of breath. No significant headache. No abdominal cramping, nausea, vomiting, or diarrhea. Denies any fevers. Does report that her pain seems consistent with previous episodes. Nohistory of trauma. No additional complaints at this time. PAST MEDICAL HISTORY: Past Medical History: Diagnosis [...] Currently Drug use: Never Social History Narrative Ihkr-xh-kydd mom. Recently moved to [place] from [place], [place]. She is 1 of 9 [...] Social Connections: Socially Integrated (03/28/2024) Received from [facility] [employer] [facility] Social Connections Do you often feel [...] worried about losing your housing?: No VITALS: Patient Vitals for the past 24 hrs: BP Temp Temp src Pulse Resp SpO2 Height Weight 05/17/24 0000 107/62 -- -- 93 -- 94 % -- -- 05/16/24 2338 -- -- -- 95 16 94 % -- -- 05/16/242213 -- -- -- 107 -- 95 % -- -- 05/16/242208 -- -- -- 102 -- 95 % -- -- 05/16/242203 109/67 -- -- 98 -- 93 % -- -- 05/16/242158 -- -- -- 102 -- 95 % -- -- 05/16/242153 111/70 -- -- -- -- -- -- -- 05/16/242134 114/58 98.3 ??F (36.8 ??C) Oral 99 18 100 % 1.549 m (5' 1) 52.2 kg (115 lb) PHYSICAL EXAM VITAL SIGNS: BP 107/62 Pulse 93 Temp 98.3 ??F (36.8 ??C) (Oral) Resp 16 Ht 1.549 m (5' 1) Wt 52.2 kg (115 lb) SpO2 94% BMI 21.73 kg/m?? General Appearance: Uncomfortable-appearing, well-nourished, no acute distress Head: Normocephalic, without obvious abnormality, atraumatic Eyes: PERRL, conjunctiva/corneas clear, EOM's intact, ENT: Lips, mucosa, and tongue normal, membranes are moist without pallor Neck: Normal ROM, symmetrical, trachea midline Cardio: Regular rate and rhythm, no murmur, rub or gallop, 2+ pulses symmetric in all extremities Pulm: Clear to auscultation bilaterally, respirations unlabored, Abdomen: Soft, non-tender, no rebound or guarding. Musculoskeletal: Full ROM, no edema, no cyanosis, good ROM of major joints Integument: Warm, Dry, No erythema, No rash. Neurologic: Alert & oriented. No focal deficits appreciated. Psychiatric: Affect normal, Judgment normal, Mood normal. LABS Results for orders placed or performed during the hospital encounter of 05/16/24 (from the past 24 hours) Influenza A/B, RSV and SARS-CoV2 PCR (COVID-19) Nasopharyngeal Specimen: Nasopharyngeal; Swab Result Value Ref Range Influenza A PCR Negative Negative Influenza B PCR Negative Negative RSV PCR Negative Negative SARS CoV2 PCR Negative Negative Narrative Testing was performed using the Xpert Xpress CoV2/Flu/RSV Assay on the [employer] Gene[employer]pert Instrument. This test should be ordered for the detection of SARS- CoV2, influenza, and RSV viruses in individuals with signs and symptoms of respiratory tract infection. This test is for in vitro diagnostic useunder the US FDA for laboratories certified under [...] management. This test was validated by the [facility]. These laboratories are certified under the Clinical Laboratory Improvement Amendments of 1988 (CLIA-88) as qualified to perfom high complexity laboratory testing. CBC with platelets + differential Narrative The following orders were created for panel order CBC with platelets + differential. Procedure Abnormality Status --------- ------ CBC with platelets and d...[[id number]] Abnormal Final result RBC and Platelet Morphology[[id number]] Abnormal Final result Please view results for these tests on the individual orders. Basic metabolic panel Result Value Ref Range Sodium 138 135 - 145 mmol/L Potassium 4.3 3.4 - 5.3 mmol/L Chloride 105 98 - 107 mmol/L Carbon Dioxide (CO2) 22 22 - 29 mmol/L Anion Gap 11 7 - 15 mmol/L Urea Nitrogen 12.0 6.0 - 20.0 mg/dL Creatinine 0.80 0.51 - 0.95 mg/dL GFR Estimate >90 >60 mL/min/1.73m2 Calcium 8.7 (L) 8.8 - 10.4 mg/dL Glucose 118 (H) 70 - 99 mg/dL CBC with platelets and differential Result Value Ref Range WBC Count 14.0 (H) 4.0 - 11.0 10e3/uL RBC Count 2.40 (L) 3.80 - 5.20 10e6/uL Hemoglobin 7.7 (L) 11.7 - 15.7 g/dL Hematocrit 21.8 (L) 35.0 - 47.0 % MCV 91 78 - 100 fL MCH 32.1 26.5 - 33.0 pg MCHC 35.3 31.5 - 36.5 g/dL RDW 22.4 (H) 10.0 - 15.0 % Platelet Count 521 (H) 150 - 450 10e3/uL % Neutrophils 55 % % Lymphocytes 25 % % Monocytes 16 % % Eosinophils 1 % % Basophils 1 % % Immature Granulocytes 1 % NRBCs per 100 WBC 2 (H) <1 /100 Absolute Neutrophils 7.7 1.6 - 8.3 10e3/uL Absolute Lymphocytes 3.6 0.8 - 5.3 10e3/uL Absolute Monocytes 2.3 (H) 0.0 - 1.3 10e3/uL Absolute Eosinophils 0.2 0.0 - 0.7 10e3/uL Absolute Basophils 0.1 0.0 - 0.2 10e3/uL Absolute Immature Granulocytes 0.1 <=0.4 10e3/uL Absolute NRBCs 0.3 10e3/uL RBC and Platelet Morphology Result Value Ref Range RBC Morphology Confirmed RBC Indices Platelet Assessment Automated Count Confirmed. Platelet morphology is normal. Automated Count Confirmed. Platelet morphology is normal. Polychromasia Slight (A) None Seen Reactive Lymphocytes Present (A) None Seen Sickle Cells Moderate (A) None Seen Target Cells Slight (A) None Seen RADIOLOGY No orders to display MEDICATIONS GIVEN IN THE EMERGENCY: Medications diphenhydrAMINE (BENADRYL) injection 50 mg (50 mg Intravenous $Given 05/16/242236) HYDROmorphone (DILAUDID) injection 1 mg (1 mg Intravenous $Given 05/16/242236) HYDROmorphone (DILAUDID) injection 1 mg (1 mg Intravenous $Given 05/16/242336) HYDROmorphone (DILAUDID) injection 1 mg (1 mg Intravenous $Given 05/17/24 0013) NEW PRESCRIPTIONS STARTED AT TODAY'S ER VISIT New Prescriptions No medications on file Guille Davis D.O. Emergency Medicine [facility] EMERGENCY ROOM [facility] [address] Dept: [phone] Guille Davis DO 05/17/24 0048 CIAL REGISTRAR * Aminata Farley RN - 05/16/2024 9:37 PM CST PT is coming in with a sickle cell crisis that has been going on/off for the past few days. Pt last had oral dilaudid 4mg at 1930 Triage Assessment (Adult) Row Name 05/16/242136 Triage Assessment Airway WDL WDL Respiratory WDL Respiratory WDL WDL Skin Circulation/Temperature WDL Skin Circulation/Temperature WDL WDL Cardiac WDL Cardiac WDL WDL Peripheral/Neurovascular WDL Peripheral Neurovascular WDL WDL Cognitive/Neuro/Behavioral WDL Cognitive/Neuro/Behavioral WDL WDL Lester Coma Scale Best Eye Response 4-->(E4) spontaneous Best Motor Response 6-->(M6) obeys commands Best Verbal Response 5-->(V5) oriented Lester Coma Scale Score 15 CIAL REGISTRAR documented in this encounter Plan of Treatment Not on file documented as of this encounter Goals Goal Patient Goal Type Associated Problems Recent Progress Patient-Stated? Author Pain Management General On track( 025 12:40 PM JUDICIAL REGISTRAR) Yes Juhi Benson, RN Note: Goal Statement: [...] Diagnosis Comments RBC AND PLATELET MORPHOLOGY STAT 05/16/2024 10:17 PM JUDICIAL REGISTRAR CBC WITH PLATELETS AND DIFFERENTIAL STAT 05/16/2024 10:17 PM JUDICIAL REGISTRAR CBC WITH PLATELETS & DIFFERENTIAL STAT 05/16/2024 10:17 PM JUDICIAL REGISTRAR BASIC METABOLIC PANEL STAT 05/16/2024 10:17 PM JUDICIAL REGISTRAR INFLUENZA A/B, RSV AND SARS-COV2 PCR STAT 05/16/2024 10:00 PM JUDICIAL REGISTRAR documented in this encounter Results * (ABNORMAL) RBC and Platelet Morphology (05/16/2024 10:17 PM JUDICIAL REGISTRAR) Pathologist [facility] RBC Morphology Confirmed RBC Indices 05/16/2024 10:54 PM JUDICIAL REGISTRAR [facility] Platelet Assessment Automated Count Confirmed. Platelet morphology is normal. Automated Count Confirmed. Platelet morphology is normal. JARET 05/16/2024 10:54 PM JUDICIAL REGISTRAR [facility] Polychromasia Slight(A) None Seen JARET 05/16/2024 10:54 PM JUDICIAL REGISTRAR [facility] Reactive Lymphocytes Present(A) None Seen JARET 05/16/2024 10:54 PM [facility] Sickle Cells Moderate(A) None Seen JARET 05/16/2024 10:54 PM JUDICIAL REGISTRAR [facility] Target Cells Slight(A) None Seen JARET 05/16/2024 10:54 PM [facility] Blood BLOOD SPECIMEN / Unknown Venipuncture / Unknown 05/16/2024 10:17 PM JUDICIAL REGISTRAR 05/16/2024 10:24 PM JUDICIAL REGISTRAR Guille Davis DO LAB - BLOOD ORDERABLES Fin al Result [facility] [address] [place] [address], [facility] * (ABNORMAL) CBC with platelets and differential (05/16/2024 10:17 PM JUDICIAL REGISTRAR) WBC Count 14.0(H) 4.0 - 11.0 10e3/uL 05/16/2024 10:50 PM [facility] RBC Count 2.40(L) 3.80 - 5.20 10e6/uL 05/16/2024 10:50 PM [facility] Hemoglobin 7.7(L) 11.7 - 15.7 g/dL 05/16/2024 10:50 PM [facility] Hematocrit 21.8(L) 35.0 - 47.0 % 05/16/2024 10:50 PM [facility] MCV 91 78 - 100 fL 05/16/2024 10:50 PM [facility] MCH 32.1 26.5 - 33.0 pg 05/16/2024 10:50 PM [facility] MCHC 35.3 31.5 - 36.5 g/dL 05/16/2024 10:50 PM [facility] RDW 22.4(H) 10.0 - 15.0 % 05/16/2024 10:50 PM [facility] Platelet Count 521(H) 150 - 450 10e3/uL 05/16/2024 10:50 PM [facility] % Neutrophils 55 % 05/16/2024 10:50 PM [facility] % Lymphocytes 25 % 05/16/2024 10:50 PM [facility] % Monocytes 16 % 05/16/2024 10:50 PM [facility] % Eosinophils 1 % 05/16/2024 10:50 PM [facility] % Basophils 1 % 05/16/2024 10:50 PM [facility] % Immature Granulocytes 1 % 05/16/2024 10:50 PM [facility] NRBCs per 100 WBC 2(H) <1 /100 025 10:50 PM [facility] Absolute Neutrophils 7.7 1.6 - 8.3 10e3/uL 05/16/2024 10:50 PM [facility] Absolute Lymphocytes 3.6 0.8 - 5.3 10e3/uL 05/16/2024 10:50 PM [facility] Absolute Monocytes 2.3(H) 0.0 - 1.3 10e3/uL 05/16/2024 10:50 PM [facility] Absolute Eosinophils 0.2 0.0 - 0.7 10e3/uL 05/16/2024 10:50 PM [facility] Absolute Basophils 0.1 0.0 - 0.2 10e3/uL 05/16/2024 10:50 PM [facility] Absolute Immature Granulocytes 0.1 <=0.4 10e3/uL 05/16/2024 10:50 PM [facility] Absolute NRBCs 0.3 10e3/uL 05/16/2024 10:50 PM [facility] Blood BLOOD SPECIMEN / Unknown Venipuncture / Unknown 05/16/2024 10:17 PM JUDICIAL REGISTRAR 05/16/2024 10:24 PM JUDICIAL REGISTRAR us Guille Davis DO LAB - BLOOD ORDERABLES Fin al Result [facility] [address] [place] [address], [place] * (ABNORMAL) Basic metabolic panel (05/16/2024 10:17 PM JUDICIAL REGISTRAR) [facility] Sodium 138 135 - 145 mmol/L 05/16/2024 10:42 PM [facility] Potassium 4.3 3.4 - 5.3 mmol/L 05/16/2024 10:42 PM [facility] Chloride 105 98 - 107 mmol/L 05/16/2024 10:42 PM [facility] Carbon Dioxide (CO2) 22 22 - 29 mmol/L 05/16/2024 10:42 PM [facility] Anion Gap 11 7 - 15 mmol/L 05/16/2024 10:42 PM [facility] Urea Nitrogen 12.0 6.0 - 20.0 mg/dL 05/16/2024 10:42 PM [facility] Creatinine 0.80 0.51 - 0.95 mg/dL 05/16/2024 10:42 PM [facility] GFR Estimate >90 >60 mL/min/1.7 3m2 05/16/2024 10:42 PM [facility] Comment:eGFR calculated usin 2020 CKD-EPI equation. Calcium 8.7(L) 8.8 - 10.4 mg/dL 05/16/2024 10:42 PM [facility] Comment:Reference intervals for this test were updated on 11/09/2023 to reflect our healthy population more accurately. There may be differences in the flagging of prior results with similar values performed with this method. Those prior results can be interpreted in the context of the updated reference intervals. Glucose 118(H) 70 - 99 mg/dL 05/16/2024 10:42 PM [facility] Blood BLOOD SPECIMEN / Unknown Venipuncture / Unknown 05/16/2024 10:17 PM JUDICIAL REGISTRAR 05/16/2024 10:24 PM [facility] us Guille Davis DO LAB - BLOOD ORDERABLES Fin al Result [facility] [address] [address], [facility] * Influenza A/B, RSV and SARS-CoV2 PCR (COVID-19) Nasopharyngeal (05/16/2024 10:00 PM JUDICIAL REGISTRAR) Influenza A PCR Negative Negative 05/16/2024 10:46 PM [facility] Influenza B PCR Negative Negative 05/16/2024 10:46 PM JUDICIAL REGISTRAR [facility] RSV PCR Negative Negative 05/16/2024 10:46 PM JUDICIAL REGISTRAR [facility] SARS CoV2 PCR Negative Negative 05/16/2024 10:46 PM JUDICIAL REGISTRAR [facility] Comment:NEGATIVE: SARS-CoV-2 (COVID-19) RNA not detected, presumed negative. Swab NASOPHARYNGEAL STRUCTURE / Unknown Non-blood Collection / Unknown 05/16/2024 10:00 PM JUDICIAL REGISTRAR 05/16/2024 10:02 PM JUDICIAL REGISTRAR [facility] - 05/16/2024 10:46 PM JUDICIAL REGISTRAR Testing was performed using the Xpert Xpress CoV2/Flu/RSV Assay on the [employer] Instrument. This test should be ordered for [...] management. This test was validated by the [facility] [facility]. These laboratories are certified under the Clinical Laboratory Improvement Amendments of 1988 (CLIA-88) as qualified to perfom high complexity laboratory testing. Guille Davis DO LAB - MICRO GENERAL ORDERA BLES Final Result [facility] [address] [place] [address], [facility] documented in this encounter Visit Diagnoses Diagnosis 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 documented in this encounter Administered Medications Inactive Administered Medications - up to 3 most recent administrations Medication Order MAR Action Action Date Dose Rate Site diphenhydrAMINE (BENADRYL) injection 50 mg 50 mg, Intravenous, ONCE, On Wed05/16/24 at 2200, For 1 dose $Given 05/16/2024 10:37 PM JUDICIAL REGISTRAR 50 mg HYDROmorphone (DILAUDID) injection 1 mg 1 mg, Intravenous, ONCE, On Wed05/16/24 at 2200, For 1 dose $Given 05/16/2024 10:37 PM JUDICIAL REGISTRAR 1 mg HYDROmorphone (DILAUDID) injection 1 mg 1 mg, Intravenous, ONCE, On Wed05/17/24 at 0000, For 1 dose $Given 05/16/2024 11:37 PM JUDICIAL REGISTRAR 1 mg HYDROmorphone (DILAUDID) injection 1 mg 1 mg, Intravenous, ONCE, On Wed05/17/24 at 0030, For 1 dose $Given 05/17/2024 12:13 AM JUDICIAL REGISTRAR 1 mg documented in this encounter Active and Recently Administered Medications Times are shown in JUDICIAL REGISTRAR. Scheduled Medication Order 05/15/2024 05/16/2024 05/17/2024 diphenhydrAMINE (BENADRYL) injection 50 mg (COMPLETED) 50 mg, Intravenous, ONCE, On Wed05/16/24 at 2200, For 1 dose 2237 ($Given - Provider: Jennifer Scherer RN) HYDROmorphone (DILAUDID) injection 1 mg (COMPLETED) 1 mg, Intravenous, ONCE, On Wed05/16/24 at 2200, For 1 dose 2237 ($Given - Provider: Jennifer Scherer RN) HYDROmorphone (DILAUDID) injection 1 mg (COMPLETED) 1 mg, Intravenous, ONCE, On Wed05/17/24 at 0000, For 1 dose 2337 ($Given - Provider: Obie Schofield RN) HYDROmorphone (DILAUDID) injection 1 mg (COMPLETED) 1 mg, Intravenous, ONCE, On Wed05/17/24 at 0030, For 1 dose 0013 ($Given - Provi nas: Obie Schofield RN) documented in this encounter Additional Health Concerns Infection Onset Date Last Indicated Resolved Time Rule Out COVID-19 05/16/2024 05/16/2024 05/16/2024 10:46 PM JUDICIAL REGISTRAR documented as of this encounter Care Teams Farm Manager Relationship Specialty Start Date End Date No Ref-Primary, Physician PCP - General 03/15/24 06/17/24 Mor Ramsey Medical Student 04/03/24 documented as of this encounter
--- OUTSIDE RECORDS SUMMARY | 2024-06-21 22:19 | XMS_ITS | Encounter Summary ---
Author Organization [place] Address [address] [place] [address]. [place] [address] Care Team Providers Care Operations Plant Attendant Name Role Phone No Ref-Primary, Physician Primary Care Provider Mor Ramsey Unavailable Unavailable Case Samuel MD Unavailable [phone] Encounter Details Date Type Department Care Team (Latest Contact Info) Description 05/20/2024 Travel Social History Tobacco Use Types Packs/Day [...] on file Legal Sex Female 8:25 AM CIRCUS ARTIST Gender Identity Not on file Sexual Orientation Not on file documented as of this encounter Plan of Treatment Not on file documented as of this encounter Goals Goal Patient Goal Type Associated Problems Recent Progress Patient-Stated? Author Pain Management General On track( 025 12:40 PM CIRCUS ARTIST) Yes Juhi Benson, RN Note: Goal Statement: [...] on filedocumented in this encounter Care Teams Operations Plant Attendant Relationship Specialty Start Date End Date No Ref-Primary, Physician PCP - General 03/15/24 06/17/24 Mor Ramsey Medical Student 04/03/24 aCse Samuel MD [address] [place] [address], [address] [place] [address] Assigned Pediatric Specialist Provider 05/18/24 documented as of this encounter
--- OUTSIDE RECORDS SUMMARY | 2024-06-21 22:19 | XMS_ITS | Encounter Summary ---
Author Organization [place] Address [facility] [place] [address] Care Team Providers Care Gear Nicker Name Role Phone No Ref-Primary, Physician Primary Care Provider Mor Ramsey Unavailable Unavailable Encounter Details Date Type Department Care Team (Latest Contact Info) Description 05/16/2024 Travel Social History Tobacco Use Types Packs/Day [...] in an abandoned building, in an overnight fdc, or couch-surfing.) Yes 04/09/2024 Are you worried [...] file Legal Sex Female 8:25 AM SOCIAL WORK THERAPIST Gender Identity Not on file Sexual Orientation Not on file documented as of this encounter Plan of Treatment Not on file documented as of this encounter Goals Goal Patient Goal Type Associated Problems Recent Progress Patient-Stated? Author Pain Management General On track( 025 12:40 PM SOCIAL WORK THERAPIST) Yes Juhi Benson, RN Note: Goal [...] Out COVID-19 05/16/2024 05/16/2024 05/16/2024 10:46 PM SOCIAL WORK THERAPIST documented as of this encounter Care Teams Gear Nicker Relationship Specialty Start Date End Date No Ref-Primary, Physician PCP - General 03/15/24 06/17/24 Mor Ramsey Medical Student 04/03/24 documented as of this encounter
[2024-06-21 22:20] VITALS: BP 113/76; PULSE 115; RESP 16; TEMP 37; O2SAT 98; BMI 21.7
--- NOTE | 2024-06-22 00:43 | ED.GENADULT ---
HPI - General Adult General Chief complaint: Unspecified Complaint, Adult Stated complaint: Sickle cell exacerbation Time Seen by Provider: 06/21/24 23:59 Source: patient Mode of arrival: ambulatory Limitations: no limitations History of Present Illness HPI narrative: 29-year-old female presents to the emergency department in sickle cell pain crisis. She had multiple similar visits back in March, 2 of which I did care for her. Since that visit, she has made contact with Hematology. She is able to pull those notes up for me in her my chart. I can see a documented recommendation for acute pain crisis from her african studies professor. These notes were reviewed in their entirety. Pain today is in the legs, abdomen and somewhat in the chest, not as severe as previous episodes. She has had 13 ED visits in the last month. Most of these have been to [place]. Her visits are less frequent to us as she has her own residence. She comes to our ED tonight because she was visiting her in-laws back in [place]. Her [id number] dropped her off here because of the pain. No new trauma or injury. No severe shortness of breath. No bloody stools or other symptoms of severe medical crisis. She gets her hemoglobin managed through her hematology team and has had 2 ports placed since our initial ED visit. He reports no fever or other acute symptoms besides the recurrent pain episodes which are similar to her pattern today. 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 Specialty notes readily accessible through patient's MyChart. Nonsmoker. ROS is notable for the musculoskeletal symptoms as above. No acute neurological respiratory, cardiovascular GI or gynecological changes. Related Data Home Medications ?Medication ?Instructions ?Recorded ?Confirmed hydromorphone 2 mg tablet 4 mg PO Q4H PRN pain 04/02/24 04/08/24 folic acid 2 tab PO DAILY 04/04/24 04/08/24 hydroxyurea (sickle cell) 1,000 mg PO BID 04/04/24 04/08/24 Previous Rx's ?Medication ?Instructions ?Recorded azithromycin 250 mg tablet 250 mg PO DAILY 4 days #4 tabs 04/08/24 cefdinir 300 mg capsule 300 mg PO BID #20 caps 04/08/24 cefdinir 300 mg capsule 300 mg PO BID 107 days #214 caps 04/08/24 Allergies Allergy/AdvReac Type Severity Reaction Status Date / Time cashew nut Allergy Verified 04/08/24 00:45 ketorolac (From Toradol) Allergy Verified 04/08/24 00:45 tramadol Allergy Verified 04/08/24 00:45 banana AdvReac Verified 04/08/24 00:45 latex AdvReac Verified 04/08/24 00:45 [facility] Medical History (Updated 06/22/24 @ 00:48 by Nivia Gan MD) Sickle cell pain crisis ?D57.00 - Hb-SS disease with crisis, unspecified (ICD-10) Sickle cell anemia ?D57.1 - Sickle-cell disease without crisis (ICD-10) Social History Smoking Status: Never smoker Do you use any of these nicotine containing products: None How often do you have a drink containing alcohol: never AUDIT-C Alcohol total score: 0 Non-prescribed substance use: opiods/painkillers Exam Const: Vital Signs, click to edit/add: Vital Signs - 24 hr 06/21/24 22:20 Temperature 98.6 F Pulse Rate [Pulse Oximeter] 115 H Respiratory Rate 16 Blood Pressure [Ri ght Upper Arm] 113/76 Pulse Oximetry 98 Oxygen Delivery Me thod Room Air Documenting provider has reviewed patient's vital signs: yes General appearance: cooperative and well kempt Other: Does seem to be in pain but similar to previous episodes. Polite and cooperative, mentating normally. HENMT: Common normals: normocephalic and moist oral mucous membranes Head and scalp: normocephalic Eye: General eye: normal appearance of both eyes Resp: Common normals: no use of accessory muscles Effort & inspection: able to speak in complete sentences Extremity: Other: No signs of joint effusions or delayed capillary refill in the extremities. No traumatic findings Psych: Common normals: speech normal Appearance: well kempt Attitude: engaged Speech: normal speech Insight: insight good Judgement: judgment good Skin: Common normals: no rashes or lesions noted General skin exam: no rashes or lesions noted Course Course ED Course: 29-year-old female with sickle cell disease presenting for acute pain crisis. Thirteen ED visits over the last month but documented ED plan of care in place from her african studies professor. Patient hopeful that starting the plasma exchange in a couple of weeks will reduce her episodes of pain crisis and I am hopeful for her as well. Since the pain management plan is clearly documented by her specialist, I can follow this. She has tolerated an accelerated pace of this for me in the past. I have documented this in her care notes now as well. She is instructed that she will need to pull up that hematology note and any subsequent hematology notes in order for us to follow this plan in the future. It is her responsibility to provide us these at each ED visit through her my chart. She will receive 2 mg of IV Dilaudid every 30 minutes x3, 1 L of LR and then will be discharged with no additional oral pain medications. She will continue following hematology plan and have all of her labs, anemia workup and further medical treatment through her hematology team only. Vital Signs Vital signs: Initial Vital Signs Temperature 98.6 F 06/21/24 22:20 Temperature Source Temporal Artery Scan 06/21/24 22:20 Pulse Rate 115 H 06/21/24 22:20 Respiratory Rate 16 06/21/24 22:20 Blood Pressure 113/76 06/21/24 22:20 Blood Pressure Mean 88 06/21/24 22:20 Blood Pressure Position Sitting 06/21/24 22:20 Pulse Oximetry 98 06/21/24 22:20 Oxygen Delivery Method Room Air 06/21/24 22:20 Vital Signs Temperature 98.6 F 06/21/24 22:20 Pulse Rate 115 H 06/21/24 22:20 Respiratory Rate 16 06/21/24 22:20 Blood Pressure 113/76 06/21/24 22:20 Pulse Oximetry 98 06/21/24 22:20 Oxygen Delivery Method Room Air 06/21/24 22:20 Temperature 98.6 F 06/21/24 22:20 Pulse Rate 115 H 06/21/24 22:20 Respiratory Rate 16 06/21/24 22:20 Blood Pressure 113/76 06/21/24 22:20 Pulse Oximetry 98 06/21/24 22:20 Oxygen Delivery Method Room Air 06/21/24 22:20 Discharge Plan Discharge Clinical Impression: Sickle cell pain crisis Patient Disposition: Home w/ Parent or Adult Condition: Improved Instructions: Sickle Cell Crisis (ED) Additional Instructions: As we discussed, we did not do a comprehensive workup regarding her sickle cell today. It does sound as though this is being well managed by your team. I am hopeful that starting PA's makes change will be helpful for you. I have documented your pain management plan as outlined specifically by your african studies professor in our records. Please always have access to your my chart notes and be prepared to pull up that hematology note if you come to our emergency department. Today you tolerated and accelerated pace of that plan which I will document as well. I am sorry the these episodes keep happening and I do hope that you get some relief from more advanced treatments. Activity Level: Activity as Tolerated Discharge Diet: Regular Prescriptions: No Action cefdinir 300 mg capsule 300 mg PO BID 107 Days Qty: 214 0RF azithromycin 250 mg tablet 250 mg PO DAILY 4 Days Qty: 4 0RF Rx Instructions: first dose was given in ER 04/08/24. start on day 2 of therapy cefdinir 300 mg capsule 300 mg PO BID Qty: 20 0RF hydromorphone 2 mg tablet 4 mg PO Q4H PRN (Reason: pain) hydroxyurea (sickle cell) 1,000 mg PO BID folic acid 2 tab PO DAILY Rx Instructions: 2mg Follow Up/Referrals: Provider,Not a Local [Primary Care Provider] - Stand Alone Forms: [facility] Info Instructions
[2024-06-22] MEDS: HYDROmorphone 0.5 mg/0.5 ml inj 2 MG IVP ×3 (00:50→01:50)
[2024-06-22] MEDS: LACTATED RINGERS 1000 ML 1,000 ML IV (00:51)
[2024-06-22 01:00] VITALS: RESP 16; O2SAT 96
--- OUTSIDE RECORDS SUMMARY | 2024-06-22 01:03 | XMS_ITS | Clinical Summary ---
Author Organization [facility] Address [address] [place] [id number] Care Team Providers Care Wildlife Policy Professional Name Role Phone Veronica Joseph MD Primary Care Provider [phone] Allergies Active Allergy Reactions Criticality Noted Date [...] ickle cell pain crisis (HC) Inhale 1 [place]ell into affected nostril(s) each time if needed [...] for Pain. 10 Tablet 5 2:58 PM SHAKE LOADER 04/27/19 25 Active folic acid 1 mg tablet Take 1 tablet (1 mg) by mouth daily. 30 Tablet 5 1:41 PM SHAKE LOADER 05/01/19 25 Active hydroxyurea (HYDREA) 500 mg capsule Take 2 capsules (1,000 mg) by mouth 2 times daily 120 Capsule 05/01/19 25 Active multivitamin with folic acid 0.4 mg (Thera) Take 1 tablet by mouth daily. 30 Tablet 11 5 10:39 AM SHAKE LOADER 05/01/19 25 Active amoxicillin-clavul anate (AUGMENTIN) 875-125 mg tablet Take 1 tablet by mouth 2 times daily for 7 days. 14 Tablet 5 10:39 AM SHAKE LOADER 05/08/19 25 Active doxycycline hyclate 100 mg capsule Take 1 capsule (100 mg) by mouth 2 times daily for 7 days. 14 Capsule 5 10:39 AM SHAKE LOADER 05/08/19 25 Active HYDROmorphone 4 mg tablet Take 1 Tablet (4 mg) by mouth every 6 hours if needed for severe pain. 30 Tablet 5 1:04 PM SHAKE LOADER 05/09/19 25 Active FLUoxetine (PROZAC) 10 mg capsule Take 1 capsule (10 mg) by mouth daily. 40 Capsule 1 5 3:26 PM SHAKE LOADER 05/29/19 25 Active naloxone (NARCAN) 4 mg/actuation nasal spray Tridell 1 spray (4 mg) into one nostril [...] severe pain. 40 Tablet 5 11:11 AM SHAKE LOADER 06/15/19 25 Active HYDROmorphone 2 mg tablet Take 2 tablets (4 mg) by mouth every 6 hours as needed for severe pain. 30 Tablet 5 4:42 PM SHAKE LOADER 05/24/19 25 025 Discontin ued(Reord er (E-cancel not sent)) HYDROmorphone 2 mg tablet Take 2 tablets (4 mg) by mouth every 6 hours as needed for severe pain. 40 Tablet 5 3:26 PM SHAKE LOADER 05/29/19 25 025 Discontin ued(Reord er (E-cancel not sent)) HYDROmorphone 2 mg tablet Take 2 tablets (4 mg) by mouth every 6 hours as needed for severe pain. 40 Tablet 5 4:27 PM SHAKE LOADER 06/07/19 25 025 Discontin ued(Reord er (E-cancel [...] Department Care Team Description 06/11/2024 1:08 AM SHAKE LOADER - 06/11/2024 3:57 AM [facility] Emergency [facility] [address] [place] [address] Juan Kunz, Sickle cell pain crisis (HC) (Primary Dx) Discharge Disposition: Home Self Care 06/11/2024 Travel 06/06/2024 Refill [facility] [address] [place] [address] Veronica Joseph MD Refill Request 06/03/2024 11:37 AM SHAKE LOADER - 06/03/2024 2:[address] [address] Ben Swan MD Viral syndrome (Primary Dx) Discharge Disposition: Home Self Care 06/03/2024 Travel 05/29/2024 1:53 PM SHAKE LOADER - 05/29/2024 2:[address] [address] Ana Pacheco MD Sickle cell pain crisis (HC) (Primary Dx) Discharge Disposition: Home Self Care 05/29/2024 Travel 05/21/2024 10:35 AM SHAKE LOADER - 05/21/2024 2:[address] [address] Juliana Gil DO Sickle cell disease with crisis (HC) (Primary Dx); Diffuse pain Discharge Disposition: Home Self Care 05/21/2024 Travel 05/18/2024 2:12 AM SHAKE LOADER - 05/18/2024 4:[address] [address] Onesimo Gaviria MD Sickle cell pain crisis (HC) (Primary Dx) Discharge Disposition: Home Self Care 05/18/2024 Travel 05/17/2024 Telephone [facility] [address] [place] [address] Veronica Joseph MD Questions (HEALTH STATUS ) 05/10/2024 Telephone [facility] [address] [place] [address] Veronica Joseph MD Follow Up 05/07/2024 5:53 PM SHAKE LOADER - 05/07/2024 8:[address] [address] Caryn Downs MD Sickle cell anemia with pain (HC) (Primary Dx); RUQ abdominal pain Discharge Disposition: Home Self Care 05/07/2024 Travel 05/03/2024 10:59 PM SHAKE LOADER - 05/04/2024 2:[address] [address] Anika Mccracken MD Discharge Disposition: Home Self Care 05/03/2024 Travel 05/02/2024 10:15 AM SHAKE LOADER - 05/02/2024 12:[address] [address] Juan Kunz DO Sickle cell pain crisis (HC) (Primary Dx) Discharge Disposition: Home Self Care 05/02/2024 Travel 04/27/2024 Telephone [facility] [address] [place] [address] Veronica Joseph MD 04/27/2024 Refill [facility] [address] [place] [address] Veronica Joseph MD Refill Request (HYDROmorphone 4 mg tablet ) 04/24/2024 1:31 AM SHAKE LOADER - 04/24/2024 4:[address] [address] Onesimo Gaviria MD Sickle cell pain crisis (HC) (Primary Dx); Community acquired pneumonia, unspecified laterality Discharge Disposition: Home Self Care 04/24/2024 Refill [facility] [address] [place] [address] Veronica Joseph MD Refill Request (HYDROmorphone 4 mg tablet ) 04/24/2024 Travel 04/22/2024 1:40 PM SHAKE LOADER - 04/22/2024 5:[address] [place] [address] Shauna Flaherty PA Sickle cell pain crisis (HC) (Primary Dx) Discharge Disposition: Home Self Care 04/22/2024 Travel 04/20/2024 3:40 PM SHAKE LOADER - 04/20/2024 6:[address] [address] Maria Teresa Haider PA Left hip pain (Primary Dx) Discharge Disposition: Home Self Care 04/20/2024 Travel 04/20/2024 Telephone [facility] [address] [place] [address] Veronica Joseph MD 04/20/2024 Refill [facility] [address] [place] [address] Veronica Joseph MD Refill Request (HYDROmorphone 4 mg tablet) 04/19/2024 7:18 PM SHAKE LOADER - 04/19/2024 9:[address] [address] Maria Teresa Haider PA Closed right hip fracture, initial encounter (HC) (Primary Dx); Avascular necrosis of bone of right hip (HC); Sickle cell pain crisis (HC) Discharge Disposition: Home Self Care 04/19/2024 Travel 04/18/2024 3:51 AM SHAKE LOADER - 04/18/2024 5:[address] [address] Elizabeth Duffy MD Left hip pain (Primary Dx); Sickle cell disease with crisis (HC) Discharge Disposition: Home Self Care 04/17/2024 10:36 AM SHAKE LOADER - 04/17/2024 12:[address] [address] Juhi Hull PA Left hip pain (Primary Dx); Sickle cell pain crisis (HC) Discharge Disposition: Home Self Care 04/17/2024 Travel 04/15/2024 5:33 PM SHAKE LOADER - 04/15/2024 10:24 PM SHAKE LOADER [address] [address] Kathy Contreras MD Sickle cell pain crisis (HC) (Primary Dx) Discharge Disposition: Home Self Care 04/15/2024 Travel 04/11/2024 9:55 AM SHAKE LOADER Office Visit [facility] [address] [place] [address] Veronica Joseph MD Follow Up (Sickle Cell) 04/11/2024 Travel 04/08/2024 6:17 PM SHAKE LOADER - 04/08/2024 8:[address] [address] Ana Pacheco MD Sickle cell pain crisis (HC) (Primary Dx) Discharge Disposition: Home Self Care 04/08/2024 Travel 04/06/2024 8:27 PM SHAKE LOADER - 04/06/2024 10:[address] [address] Tanmay Olivares PA Biliary colic (Primary Dx) Discharge Disposition: Home Self Care 04/06/2024 Travel 04/04/2024 6:29 PM SHAKE LOADER - 04/04/2024 10:[address] [address] Juhi Patel PA Sickle cell anemia with pain (HC) (Primary Dx); Opioid use Discharge Disposition: Home Self Care 04/04/2024 Travel 04/02/2024 3:52 PM SHAKE LOADER - 04/02/2024 6:[address] [address] Sabrina Ulrich PA Roy, David William, MD Sickle cell pain crisis (HC) (Primary Dx); Multiple pulmonary nodules Discharge Disposition: Home Self Care 04/02/2024 Travel 03/31/2024 Patient Outreach [facility] [address] [place] [address] Lavinia Owens, SOFIA Primary RN Care Management (LACE: 48); Hospital F/U (Diagnosis: Sickle cell pain crisis (HC) DOD: 03/30/24) 03/28/2024 7:19 PM SHAKE LOADER - 03/30/2024 9:28 AM [facility] Emergency [address] [address] Onesimo Gaviria MD Qadri, Ghaziuddin Ahmed, MBBS Fuchs, Kurt Richard, MD Sickle cell pain crisis (HC) (Primary Dx) Discharge Disposition: Home Self Care 03/28/2024 12:19 AM SHAKE LOADER - 03/28/2024 4:24 AM [facility] Emergency [address] [address] Mor Ramsey MD Sickle cell disease with crisis (HC) (Primary Dx); Chest pain, unspecified type Discharge Disposition: Home Self Care 03/28/2024 Telephone [facility] [address] [place] [address] Veronica Joseph MD Medication Management (HYDROmorphone 2 mg tablet) 03/28/2024 Travel 03/24/2024 12:36 PM SHAKE LOADER - 03/24/2024 3:[address] [address] Juhi Patel PA Sickle cell pain crisis (HC) (Primary Dx) Discharge Disposition: Home Self Care 03/24/2024 Travel 03/24/2024 Telephone [facility] [address] [place] [address] Veronica Joseph MD Medication Management; Refill Request (hydromorphone) 03/23/2024 5:04 PM SHAKE LOADER - 03/23/2024 7:59 PM SHAKE LOADER Emergency [facility] [address] [place] [address] Ben Swan MD Sickle cell pain crisis (HC) (Primary Dx) Discharge Disposition: Home Self Care 03/23/2024 Travel 03/22/2024 3:10 PM SHAKE LOADER Office Visit [facility] [address] [place] [address] Veronica Joseph MD Hospital F/U (Sickle Cell) 03/22/2024 Telephone [facility] [address] [place] [address] Veronica Joseph MD Medication Management (HYDROmorphone 4 mg tablet//) from Last 3 Months Immunizations Name Administration [...] on file Legal Sex Female 8:18 PM SHAKE LOADER Gender Identity Not on file Sexual Orientation Not on file Obstetrics History Last Filed Vital Signs Vital Sign Reading Time Taken Comments Blood Pressure 121/73 06/11/2024 3:30 AM SHAKE LOADER Pulse 93 06/11/2024 3:30 AM SHAKE LOADER Temperature 36.6 C (97.9 F) 06/11/2024 1:12 AM SHAKE LOADER Respiratory Rate 18 06/11/2024 3:00 AM SHAKE LOADER Oxygen Saturation 95% 06/11/2024 3:30 AM SHAKE LOADER Inhaled Oxygen Concentration - - Weight 51.7 kg (114 lb) 06/11/2024 1:10 AM SHAKE LOADER Height 154.9 cm (5' 1) 06/11/2024 1:10 AM SHAKE LOADER Body Mass Index 21.54 06/11/2024 1:10 AM SHAKE LOADER Plan of Treatment Health Maintenance Due Date [...] WITH AUTO DIFFERENTIAL STAT 06/03/2024 12:51 PM SHAKE LOADER INFLUENZA A/B PCR Today 06/03/2024 12: 51 PM SHAKE LOADER COVID-19 MOLECULAR Today 06/03/2024 12 :51 PM SHAKE LOADER BASIC METABOLIC PANEL STAT 06/03/2024 12:51 PM SHAKE LOADER CBC WITH AUTO DIFFERENTIAL STAT 06/03/2024 12:51 PM SHAKE LOADER XR CHEST 2 VIEWS PA AND LATERAL STAT 06/03/2024 12:34 PM SHAKE LOADER EKG 12 LEAD STAT 06/03/2024 11:48 AM SHAKE LOADER HEMOGLOBIN STAT 05/29/2024 2:23 PM SHAKE LOADER EKG 12 LEAD STAT 05/29/2024 2:03 PM SHAKE LOADER EKG 12 LEAD STAT 05/21/2024 10:19 AM SHAKE LOADER RED CELL MORPHOLOGY STAT 05/07/2024 6 :20 PM SHAKE LOADER PLATELET ESTIMATE STAT 05/07/2024 6:2 0 PM SHAKE LOADER RETICULOCYTES STAT 05/07/2024 6:20 PM SHAKE LOADER LIPASE STAT 05/07/2024 6:20 PM SHAKE LOADER HEPATIC FUNCTION PANEL STAT 6:20 PM SHAKE LOADER BASIC METABOLIC PANEL STAT 05/07/2024 6:20 PM SHAKE LOADER CBC W PLT NO DIFF STAT 05/07/2024 6:[address] CHEST PE STUDY STAT 05/04/2024 1:4 6 AM SHAKE LOADER RETICULOCYTES STAT 05/04/2024 12:24 AM SHAKE LOADER URINE Today 05/04/2024 12:07 AM SHAKE LOADER UA W/ SEDIMENT EXAM REFLEXED PER CRITERIA Today 05/04/2024 12:07 AM SHAKE LOADER CWS PATH REVIEW HEMATOLOGY STAT 05/03/2024 11:52 PM SHAKE LOADER RED CELL MORPHOLOGY STAT 05/03/2024 1 1:52 PM SHAKE LOADER PLATELET ESTIMATE STAT 05/03/2024 11: 52 PM SHAKE LOADER MANUAL DIFFERENTIAL STAT 05/03/2024 1 1:52 PM SHAKE LOADER CBC WITH AUTO DIFFERENTIAL STAT 05/03/2024 11:52 PM SHAKE LOADER D-DIMER,QUANTITATIVE STAT 05/03/2024 11:52 PM SHAKE LOADER HEPATIC FUNCTION PANEL STAT 11:52 PM SHAKE LOADER BASIC METABOLIC PANEL STAT 05/03/2024 11:52 PM SHAKE LOADER CBC WITH AUTO DIFFERENTIAL STAT 05/03/2024 11:52 PM SHAKE LOADER EKG 12 LEAD STAT 05/03/2024 11:48 PM SHAKE LOADER INFLUENZA A/B PCR Today 05/02/2024 10: 20 AM SHAKE LOADER COVID-19 MOLECULAR Today 05/02/2024 10 :20 AM SHAKE LOADER CBC WITH AUTO DIFFERENTIAL SULEMA 04/24/2024 2:16 AM SHAKE LOADER RETICULOCYTES Early AM 04/24/2024 2:16 AM SHAKE LOADER CBC WITH AUTO DIFFERENTIAL SULEMA 04/24/2024 2:16 AM SHAKE LOADER BASIC METABOLIC PANEL SULEMA 04/24/2024 2:16 AM SHAKE LOADER XR CHEST 2 VIEWS PA AND LATERAL STAT 04/24/2024 1:58 AM SHAKE LOADER EKG 12 LEAD SULEMA 04/24/2024 1:38 AM SHAKE LOADER RETICULOCYTES STAT 04/22/2024 2:21 PM SHAKE LOADER BASIC METABOLIC PANEL STAT 04/22/2024 2:21 PM SHAKE LOADER CBC W PLT NO DIFF STAT 04/22/2024 2:2 1 PM SHAKE LOADER XR CHEST 2 VIEWS PA AND LATERAL STAT 04/22/2024 1:18 PM SHAKE LOADER EKG 12 LEAD STAT 04/22/2024 1:06 PM SHAKE LOADER TYPE & SCREEN STAT 04/20/2024 4:43 PM SHAKE LOADER RED CELL MORPHOLOGY STAT 04/20/2024 4 :43 PM SHAKE LOADER PLATELET ESTIMATE STAT 04/20/2024 4:4 3 PM SHAKE LOADER MANUAL DIFFERENTIAL STAT 04/20/2024 4 :43 PM SHAKE LOADER CBC WITH AUTO DIFFERENTIAL STAT 04/20/2024 4:43 PM SHAKE LOADER RETICULOCYTES STAT 04/20/2024 4:43 PM SHAKE LOADER CBC WITH AUTO DIFFERENTIAL STAT 04/20/2024 4:43 PM SHAKE LOADER BASIC METABOLIC PANEL STAT 04/20/2024 4:25 PM SHAKE LOADER XR ANKLE 3 VIEWS LEFT STAT 04/18/2024 5:09 AM SHAKE LOADER C-REACTIVE PROTEIN STAT 04/18/2024 4: 59 AM SHAKE LOADER BASIC METABOLIC PANEL STAT 04/18/2024 4:59 AM SHAKE LOADER SEDIMENTATION RATE STAT 04/18/2024 4: 58 AM SHAKE LOADER CBC WITH AUTO DIFFERENTIAL STAT 04/18/2024 4:58 AM SHAKE LOADER RETICULOCYTES STAT 04/18/2024 4:58 AM SHAKE LOADER CBC WITH AUTO DIFFERENTIAL STAT 04/18/2024 4:58 AM SHAKE LOADER RED CELL MORPHOLOGY STAT 04/17/2024 1 0:50 AM SHAKE LOADER PLATELET ESTIMATE STAT 04/17/2024 10: 50 AM SHAKE LOADER C-REACTIVE PROTEIN SULEMA 04/17/2024 10 :50 AM SHAKE LOADER SEDIMENTATION RATE SULEMA 04/17/2024 10 :50 AM SHAKE LOADER CBC W PLT NO DIFF STAT 04/17/2024 10: 50 AM SHAKE LOADER BASIC METABOLIC PANEL STAT 04/17/2024 10:50 AM SHAKE LOADER RETICULOCYTES STAT 04/17/2024 10:50 AM SHAKE LOADER XR HIP 2 OR 3 VIEWS W PELVIS LEFT STAT 04/15/2024 6:34 PM SHAKE LOADER TYPE & SCREEN STAT 04/15/2024 6:10 PM SHAKE LOADER RED CELL MORPHOLOGY STAT 04/15/2024 6 :10 PM SHAKE LOADER PLATELET ESTIMATE STAT 04/15/2024 6:1 0 PM SHAKE LOADER C-REACTIVE PROTEIN STAT 04/15/2024 6: 10 PM SHAKE LOADER SEDIMENTATION RATE STAT 04/15/2024 6: 10 PM SHAKE LOADER CBC WITH AUTO DIFFERENTIAL STAT 04/15/2024 6:10 PM SHAKE LOADER BASIC METABOLIC PANEL STAT 04/15/2024 6:10 PM SHAKE LOADER RETICULOCYTES STAT 04/15/2024 6:10 PM SHAKE LOADER CBC WITH AUTO DIFFERENTIAL STAT 04/15/2024 6:10 PM SHAKE LOADER RED CELL MORPHOLOGY Timed 04/08/2024 8 :27 PM SHAKE LOADER PLATELET ESTIMATE Timed 04/08/2024 8:2 7 PM SHAKE LOADER RETICULOCYTES Early AM 04/08/2024 8:27 PM SHAKE LOADER CBC W PLT NO DIFF Early AM 04/08/2024 8:2 7 PM SHAKE LOADER XR CHEST 2 VIEWS PA AND LATERAL STAT 04/08/2024 7:28 PM SHAKE LOADER BASIC METABOLIC PANEL STAT 04/08/2024 7:05 PM SHAKE LOADER EKG 12 LEAD STAT 04/08/2024 5:50 PM SHAKE LOADER US ABDOMEN LIMITED GALLBLADDER STAT 04/06/2024 9:38 PM SHAKE LOADER CBC WITH AUTO DIFFERENTIAL STAT 04/06/2024 8:55 PM SHAKE LOADER RETICULOCYTES STAT 04/06/2024 8:55 PM SHAKE LOADER LIPASE STAT 04/06/2024 8:55 PM SHAKE LOADER COMP METABOLIC PANEL STAT 04/06/2024 8:55 PM SHAKE LOADER CBC WITH AUTO DIFFERENTIAL STAT 04/06/2024 8:55 PM SHAKE LOADER XR CHEST 2 VIEWS PA AND LATERAL STAT 04/04/2024 7:28 PM SHAKE LOADER RED CELL MORPHOLOGY STAT 04/04/2024 6 :54 PM SHAKE LOADER PLATELET ESTIMATE STAT 04/04/2024 6:5 4 PM SHAKE LOADER MANUAL DIFFERENTIAL STAT 04/04/2024 6 :54 PM SHAKE LOADER TROPONIN T (HS) ACUTE W/2HR REFLEX SULEMA 04/04/2024 6:54 PM SHAKE LOADER CBC WITH AUTO DIFFERENTIAL STAT 04/04/2024 6:54 PM SHAKE LOADER RETICULOCYTES STAT 04/04/2024 6:54 PM SHAKE LOADER BASIC METABOLIC PANEL STAT 04/04/2024 6:54 PM SHAKE LOADER CBC WITH AUTO DIFFERENTIAL STAT 04/04/2024 6:54 PM SHAKE LOADER EKG 12 LEAD STAT 04/04/2024 6:45 PM SHAKE LOADER XR CHEST 2 VIEWS PA AND LATERAL STAT 04/02/2024 4:42 PM SHAKE LOADER EKG 12 LEAD STAT 04/02/2024 4:24 PM SHAKE LOADER RED CELL MORPHOLOGY STAT 04/02/2024 4 :21 PM SHAKE LOADER PLATELET ESTIMATE STAT 04/02/2024 4:2 1 PM SHAKE LOADER CBC WITH AUTO DIFFERENTIAL STAT 04/02/2024 4:21 PM SHAKE LOADER RETICULOCYTES STAT 04/02/2024 4:21 PM SHAKE LOADER BASIC METABOLIC PANEL STAT 04/02/2024 4:21 PM SHAKE LOADER CBC WITH AUTO DIFFERENTIAL STAT 04/02/2024 4:21 PM SHAKE LOADER SODIUM Early AM 03/30/2024 8:15 AM SHAKE LOADER CREATININE Early AM 03/30/2024 8:15 AM SHAKE LOADER POTASSIUM Early AM 03/30/2024 8:15 AM SHAKE LOADER PLATELET COUNT Early AM 03/30/2024 8:15 AM SHAKE LOADER WHITE BLOOD COUNT Early AM 03/30/2024 8:1 5 AM SHAKE LOADER HEMOGLOBIN Early AM 03/30/2024 8:15 AM SHAKE LOADER WHITE BLOOD COUNT Early AM 03/29/2024 5:4 4 AM SHAKE LOADER BILIRUBIN,TOTAL Early AM 03/29/2024 5:44 AM SHAKE LOADER PLATELET COUNT Early AM 03/29/2024 5:44 AM SHAKE LOADER HEMOGLOBIN Early AM 03/29/2024 5:44 AM SHAKE LOADER RETICULOCYTES Early AM 03/29/2024 5:44 AM SHAKE LOADER BILIRUBIN,TOTAL/DIRECT SULEMA 7:53 PM SHAKE LOADER RED CELL MORPHOLOGY SULEMA 03/28/2024 7 :53 PM SHAKE LOADER PLATELET ESTIMATE SULEMA 03/28/2024 7:5 3 PM SHAKE LOADER MANUAL DIFFERENTIAL SULEMA 03/28/2024 7 :53 PM SHAKE LOADER CBC WITH AUTO DIFFERENTIAL SULEMA 03/28/2024 7:53 PM SHAKE LOADER CBC WITH AUTO DIFFERENTIAL SULEMA 03/28/2024 7:53 PM SHAKE LOADER BASIC METABOLIC PANEL SULEMA 03/28/2024 7:53 PM SHAKE LOADER BLOOD CULTURE STAT 03/28/2024 2:17 AM SHAKE LOADER PROCALCITONIN STAT 03/28/2024 2:06 AM SHAKE LOADER BLOOD CULTURE STAT 03/28/2024 2:06 AM SHAKE LOADER XR CHEST 2 VIEWS PA AND LATERAL STAT 03/28/2024 1:17 AM SHAKE LOADER C-REACTIVE PROTEIN SULEMA 03/28/2024 12 :53 AM SHAKE LOADER BASIC METABOLIC PANEL STAT 03/28/2024 12:53 AM SHAKE LOADER RETICULOCYTES STAT 03/28/2024 12:53 AM SHAKE LOADER CBC W PLT NO DIFF STAT 03/28/2024 12: 53 AM SHAKE LOADER EKG 12 LEAD STAT 03/28/2024 12:22 AM SHAKE LOADER CBC WITH AUTO DIFFERENTIAL STAT 03/24/2024 1:02 PM SHAKE LOADER TROPONIN T (HS) ACUTE W/2HR REFLEX STAT 03/24/2024 1:02 PM SHAKE LOADER RETICULOCYTES STAT 03/24/2024 1:02 PM SHAKE LOADER BASIC METABOLIC PANEL STAT 03/24/2024 1:02 PM SHAKE LOADER CBC WITH AUTO DIFFERENTIAL STAT 03/24/2024 1:02 PM SHAKE LOADER EKG 12 LEAD STAT 03/24/2024 12:45 PM SHAKE LOADER CBC WITH AUTO DIFFERENTIAL STAT 03/23/2024 5:43 PM SHAKE LOADER RETICULOCYTES STAT 03/23/2024 5:43 PM SHAKE LOADER CBC WITH AUTO DIFFERENTIAL STAT 03/23/2024 5:43 PM SHAKE LOADER from Last 3 Months Results * COVID-19 MOLECULAR (06/03/2024 12:51 PM SHAKE LOADER) Only the most recent of2 resultswithin the time period is included. COVID 19 [place] MOLECULAR Not detected Not detected 06/03/2024 1:18 PM SHAKE LOADER [facility] TESTING LABORATORY [facility] 06/03/2024 1:18 PM SHAKE LOADER [facility] Comment:Specimen submitted t o [facility] for testing. Other SPECIMEN FROM NASOPHARYNGEAL STRUCTURE / Unknown Non-Blood / Unknown 06/03/2024 12:51 PM SHAKE LOADER 06/03/2024 12:54 PM SHAKE LOADER Ben Swan MD MICROBIOLOGY Final Res ult Performing Organization Address City/[facility]/ZIP Co de Phone Number [facility] [address] [place] [id number], [place] [phone] * INFLUENZA A/B PCR (06/03/2024 12:51 PM SHAKE LOADER) Only the most recent of2 resultswithin the time period is included. Pathologist [facility] [place] INFLUENZA A PCR NOT Detected 06/03/2024 1:18 PM SHAKE LOADER [facility] INFLUENZA B PCR NOT Detected 06/03/2024 1:18 PM SHAKE LOADER [facility] Other SPECIMEN FROM NASOPHARYNGEAL STRUCTURE / Unknown Non-Blood / Unknown 06/03/2024 12:51 PM SHAKE LOADER 06/03/2024 12:54 PM SHAKE LOADER us Ben Swan MD MICROBIOLOGY Final Res ult [facility] [address] [place] [id number], [place] [phone] * (ABNORMAL) CBC WITH AUTO DIFFERENTIAL (06/03/2024 12:51 PM [facility]) Only the most recent of12 resultswithin the time period is included. WHITE BLOOD COUNT 11.0 4.5 - 11.0 thou/cu mm 06/03/2024 1:05 PM [facility] RED BLOOD COUNT 2.94(L) 4.00 - 5.20 mil/cu mm 06/03/2024 1:05 PM [facility] HEMOGLOBIN 9.3(L) 12.0 - 16.0 g/dL 06/03/2024 1:05 PM [facility] HEMATOCRIT 26.9(L) 33.0 - 51.0 % 06/03/2024 1:05 PM [facility] MCV 92 80 - 100 fL 06/03/2024 1:05 PM [facility] MCH 31.6 26.0 - 34.0 pg 06/03/2024 1:05 PM [facility] MCHC 34.6 32.0 - 36.0 g/dL 06/03/2024 1:05 PM [facility] RDW 18.9(H) 11.5 - 15.5 % 06/03/2024 1:05 PM [facility] PLATELET COUNT 456(H) 140 - 440 thou/cu mm 06/03/2024 1:05 PM [facility] MPV 9.8 6.5 - 11.0 fL 06/03/2024 1:05 PM [facility] NRBC 0.6 % 06/03/2024 1:05 PM [facility] ABS NRBC 0.1 thou /cu mm 06/03/2024 1:05 PM [facility] % NEUT 69.9 % 06/03/2024 1:05 PM [facility] % LYMPH 15.1 % 06/03/2024 1:05 PM SHAKE LOADER [facility] % MONO 13.4 % 06/03/2024 1:05 PM [facility] % EOS 0.2 % 06/03/2024 1:05 PM SHAKE LOADER [facility] % BASO 0.9 % 06/03/2024 1:05 PM [facility] % IMMATURE GRAN (METAS,MYELOS,OK OS) 0.5 % 06/03/2024 1:05 PM SHAKE LOADER [facility] ABSOLUTE NEUTROPHILS 7.7(H) 1.7 - 7.0 thou/cu mm 06/03/2024 1:05 PM [facility] ABSOLUTE LYMPHOCYTES 1.7 0.9 - 2.9 thou/cu mm 06/03/2024 1:05 PM [facility] ABSOLUTE MONOCYTES 1.5(H) <0.9 thou/cu mm 06/03/2024 1:05 PM SHAKE LOADER [facility] ABSOLUTE EOSINOPHILS 0.0 <0.5 thou/cu mm 06/03/2024 1:05 PM [facility] ABSOLUTE BASOPHILS 0.1 <0.3 thou/cu mm 06/03/2024 1:05 PM [facility] ABSOLUTE IMMATURE GRANULOCYTES(MET ,MYELOS,PROS) 0.1 <0.3 thou/cu mm 06/03/2024 1:05 PM [facility] Blood BLOOD SPECIMEN / Unknown IV Start / Unknown 06/03/2024 12:51 PM SHAKE LOADER 06/03/2024 12:54 PM SHAKE LOADER us Ben Swan MD HEMATOLOGY Final Res ult [facility] [address] [place] [address], * (ABNORMAL) BASIC METABOLIC PANEL (06/03/2024 12:51 PM SHAKE LOADER) Only the most recent of15 resultswithin the time period is included. SODIUM 135(L) 136 - 145 mmol/L 06/03/2024 1:13 PM SHAKE LOADER [facility] POTASSIUM 4.5 3.5 - 5.1 mmol/L 06/03/2024 1:13 PM SHAKE LOADER [facility] CHLORIDE 101 98 - 107 mmol/L 06/03/2024 1:13 PM SHAKE LOADER [facility] CO2,TOTAL 21(L) 22 - 29 mmol/L 06/03/2024 1:13 PM SHAKE LOADER [facility] ANION GAP 13 5 - 18 06/03/2024 1:13 PM SHAKE LOADER [facility] GLUCOSE 100(H) 70 - 99 mg/dL 06/03/2024 1:13 PM SHAKE LOADER [facility] CALCIUM 9.6 8.8 - 10.4 mg/dL 06/03/2024 1:13 PM SHAKE LOADER [facility] Comment: Reference ranges for this test were updated on 02/29/2024 to reflect our healthy population more accurately. Reference range changes are not retroactively applied to results, but previous results using the same methodology can be interpreted in the context of the new reference range. BUN 12 6 - 20 mg/dL 06/03/2024 1:13 PM SHAKE LOADER [facility] CREATININE 0.74 0.50 - 0.90 mg/dL 06/03/2024 1:13 PM SHAKE LOADER [facility] BUN/CREAT RATIO 16 10 - 20 1:13 PM SHAKE LOADER [facility] eGFR >90 >90 mL/min/1.7 3m2 06/03/2024 1:13 PM SHAKE LOADER [facility] Comment:As of 2021, eG FR is calculated by the CKD-EPI creatinine equation without race adjustment. eGFR can be influenced by muscle mass, exercise, and diet. The reported eGFR is an estimation only and is only applicable if the renal function is stable. Blood BLOOD SPECIMEN / Unknown IV Start / Unknown 06/03/2024 12:51 PM SHAKE LOADER 06/03/2024 12:54 PM SHAKE LOADER us Ben Swan MD CHEMISTRY Final Res [facility] [facility] [address] [place] [address], * XR CHEST 2 VIEWS PA AND LATERAL (06/03/2024 12:34 PM SHAKE LOADER) Only the most recent of7 resultswithin the time period is included. Anatomical Region Laterality Modality CHEST, THORAX, Lung, HEART Compu frank Radiography 06/03/2024 12:3 4 PM SHAKE LOADER Impressions 06/03/2024 1:03 PM SHAKE LOADER Faintly visible nodularity mid and lower lungs correspond to pulmonary nodules on recent CT. No focal pulmonary consolidation. No pleural effusion. No pneumothorax. Heart size normal. Port anterior right chest wall with right-sided CVC low SVC. In addition, there is a left-sided port anterior left chest wall with left CVC tip also in the low SVC. Narrative 06/03/2024 1:03 PM SHAKE LOADER For Patients: As a result of the Century Cures Act, medical imaging exams and procedure reports are released immediately into your electronic medical record. You may view this report before your referring provider. If you have questions, please contact your health care provider. EXAM: XR CHEST 2 VIEWS PA AND LATERAL LOCATION: [facility] DATE: 06/03/2024 INDICATION: Chest pain. COMPARISON: 05/04/2024 [...] CHEST 2 VIEWS PA AND LATERAL LOCATION: [facility] DATE: 06/03/2024 INDICATION: Chest pain. COMPARISON: 05/04/2024 [...] CVC tip also in the low SVC. Ben Swan MD GENERAL IMAGING Final Res ult * EKG 12 LEAD (06/03/2024 11:48 AM SHAKE LOADER) Only the most recent of11 resultswithin the time period is included. Interpretation [...] NOW QTc 454 ms BEYOND NOW P Eckerman 54 degrees BEYOND NOW R Eckerman 55 degrees BEYOND NOW T Eckerman 31 degrees BEYOND NOW 06/03/2024 11:4 8 AM SHAKE LOADER 06/04/2024 3:27 AM SHAKE LOADER Narrative BEYOND NOW - 06/04/2024 3:27 AM SHAKE LOADER Test Indication: chest pain [facility] Ed Triage EKG ORD Final Result BEYOND NOW [place], [place] * (ABNORMAL) HEMOGLOBIN (05/29/2024 2:23 PM SHAKE LOADER) Only the most recent of3 resultswithin the time period is included. HEMOGLOBIN 7.1(L) 12.0 - 16.0 g/dL 05/29/2024 2:32 PM SHAKE LOADER [facility] MCV 93 80 - 100 fL 05/29/2024 2:32 PM SHAKE LOADER [facility] Blood BLOOD SPECIMEN / Unknown IV Start / Unknown 05/29/2024 2:23 PM SHAKE LOADER 05/29/2024 2:30 PM SHAKE LOADER us Ana Pacheco MD HEMATOLOGY Final Result Performing Organization Address [facility]/ZIP Co de Phone Number [facility] [address] [place] [address], [place] [phone] * (ABNORMAL) RED CELL MORPHOLOGY (05/07/2024 6:20 PM SHAKE LOADER) Only the most recent of9 resultswithin the time period is included. POLYCHROMASIA Moderate 05/07/2024 6:33 PM SHAKE LOADER [facility] TARGET CELLS Moderate 05/07/2024 6:33 PM SHAKE LOADER [facility] RBC COMMENT Present(A) RBC morphology appears normal, RBC morphology within normal limits for newborns. 05/07/2024 6:33 PM SHAKE LOADER [facility] *SICKLE CELLS Present 05/07/2024 6:33 PM SHAKE LOADER [facility] Blood BLOOD SPECIMEN / Unknown Butterfly / Unknown 05/07/2024 6:20 PM SHAKE LOADER 05/07/2024 6:23 PM SHAKE LOADER us Caryn Rasmussen MD HEMATOLOGY Final Result [facility] [address] [place] [address], [place] [phone] * PLATELET ESTIMATE (05/07/2024 6:20 PM SHAKE LOADER) Only the most recent of9 resultswithin the time period is included. [facility] PLATELET ESTIMATE Adequate Adequate, No estimate 05/07/2024 6:33 PM SHAKE LOADER [facility] Blood BLOOD SPECIMEN / Unknown Butterfly / Unknown 05/07/2024 6:20 PM SHAKE LOADER 05/07/2024 6:23 PM SHAKE LOADER Caryn Rasmussen MD HEMATOLOGY Final Result [facility] [address] [place] [address], [place] [phone] * (ABNORMAL) CBC W PLT NO DIFF (05/07/2024 6:20 PM SHAKE LOADER) Only the most recent of5 resultswithin the time period is included. [facility] WHITE BLOOD COUNT 15.6(H) 4.5 - 11.0 thou/cu mm 05/07/2024 6:33 PM SHAKE LOADER [facility] RED BLOOD COUNT 2.71(L) 4.00 - 5.20 mil/cu mm 05/07/2024 6:33 PM SHAKE LOADER [facility] HEMOGLOBIN 8.7(L) 12.0 - 16.0 g/dL 05/07/2024 6:33 PM SHAKE LOADER [facility] HEMATOCRIT 25.4(L) 33.0 - 51.0 % 05/07/2024 6:33 PM SHAKE LOADER [facility] MCV 94 80 - 100 fL 05/07/2024 6:33 PM SHAKE LOADER [facility] MCH 32.1 26.0 - 34.0 pg 05/07/2024 6:33 PM SHAKE LOADER [facility] MCHC 34.3 32.0 - 36.0 g/dL 05/07/2024 6:33 PM SHAKE LOADER [facility] RDW 23.3(H) 11.5 - 15.5 % 05/07/2024 6:33 PM SHAKE LOADER [facility] PLATELET COUNT 356 140 - 440 thou/cu mm 05/07/2024 6:33 PM SHAKE LOADER [facility] MPV 9.8 6.5 - 11.0 fL 05/07/2024 6:33 PM SHAKE LOADER [facility] NRBC 2.0 % 05/07/2024 6:33 PM SHAKE LOADER [facility] ABS NRBC 0.3 thou /cu mm 05/07/2024 6:33 PM SHAKE LOADER [facility] Blood BLOOD SPECIMEN / Unknown Butterfly / Unknown 05/07/2024 6:20 PM SHAKE LOADER 05/07/2024 6:23 PM SHAKE LOADER Caryn Rasmussen MD HEMATOLOGY Final Result [facility] [address] [place] [address], * (ABNORMAL) RETICULOCYTES (05/07/2024 6:20 PM SHAKE LOADER) Only the most recent of16 resultswithin the time period is included. RETIC% 20.3(H) 0.5 - 1.5 % 05/07/2024 6:34 PM SHAKE LOADER [facility] RETIC (ABSOLUTE) 0.55(H) 0.03 - 0.08 mil/cu mm 05/07/2024 6:34 PM SHAKE LOADER [facility] Blood BLOOD SPECIMEN / Unknown Butterfly / Unknown 05/07/2024 6:20 PM SHAKE LOADER 05/07/2024 6:23 PM SHAKE LOADER Caryn Rasmussen MD HEMATOLOGY Final Result Performing Organization Address [facility] Co de Phone Number [facility] [address] [place] [address], [place] [phone] * LIPASE (05/07/2024 6:20 PM SHAKE LOADER) Only the most recent of2 resultswithin the time period is included. LIPASE 35.9 13.0 - 60.0 IU/L 05/07/2024 6:53 PM SHAKE LOADER [facility] Blood BLOOD SPECIMEN / Unknown Butterfly / Unknown 05/07/2024 6:20 PM SHAKE LOADER 05/07/2024 6:23 PM SHAKE LOADER Caryn Rasmussen MD CHEMISTRY Final Result Performing Organization Address [facility] Co de Phone Number [facility] [address] [place] [address], [place] [phone] * (ABNORMAL) HEPATIC FUNCTION PANEL (05/07/2024 6:20 PM SHAKE LOADER) Only the most recent of2 resultswithin the time period is included. ALBUMIN 4.4 4.0 - 4.9 g/dL 05/07/2024 6:53 PM SHAKE LOADER [facility] PROTEIN,TOTAL 8.1(H) 6.0 - 8.0 g/dL 05/07/2024 6:53 PM SHAKE LOADER [facility] BILIRUBIN,TOTAL 2.2(H) 0.0 - 1.2 mg/dL 05/07/2024 6:53 PM SHAKE LOADER [facility] BILIRUBIN,DIRECT 0.9(H) 0.0 - 0.2 mg/dL 05/07/2024 6:53 PM SHAKE LOADER [facility] BILIRUBIN,INDIRE CT 1.3(H) 0.2 - 0.8 mg/dL 05/07/2024 6:53 PM SHAKE LOADER [facility] ALK PHOSPHATASE 120(H) 35 - 104 IU/L 05/07/2024 6:53 PM SHAKE LOADER [facility] ALT (SGPT) 28 10 - 35 IU/L 05/07/2024 6:53 PM SHAKE LOADER [facility] AST (SGOT) 46(H) 10 - 35 IU/L 05/07/2024 6:53 PM SHAKE LOADER [facility] Blood BLOOD SPECIMEN / Unknown Butterfly / Unknown 05/07/2024 6:20 PM SHAKE LOADER 05/07/2024 6:23 PM SHAKE LOADER Caryn Rasmussen MD CHEMISTRY Final Result [facility] [address] [place] [phone], * CT CHEST PE STUDY (05/04/2024 1:46 AM SHAKE LOADER) Anatomical Region Laterality Modality CHEST, THORAX, HEART Computed To mography 05/04/2024 1:46 AM SHAKE LOADER Impressions 05/04/2024 2:01 AM SHAKE LOADER 1. No pulmonary embolus. 2. Multiple small bilateral pulmonary nodules and mild enlargement of right hilar lymph nodes not significantly changed from the recent study of 04/06/2024. Differential diagnosis includes inflammatory/infectious and neoplastic etiologies. Narrative 05/04/2024 2:01 AM SHAKE LOADER For Patients: As a result of the 21st Century Cures Act, medical imaging exams and procedure reports are released immediately into your electronic medical record. You may view this report before your referring provider. If you have questions, please contact your health care provider. EXAM: CT CHEST PE STUDY LOCATION: [facility] DATE: 05/04/2024 INDICATION: Pulmonary embolism (PE) suspected, [...] provider. EXAM: CT CHEST PE STUDY LOCATION: [facility] DATE: 05/04/2024 INDICATION: Pulmonary embolism (PE) suspected, [...] EXAM REFLEXED PER CRITERIA (05/04/2024 12:07 AM SHAKE LOADER) COLOR Yellow Yellow Color 05/04/2024 12:18 AM [facility] CLARITY Clear Clear Clarity 05/04/2024 12:18 AM [facility] SPECIFIC GRAVITY,URINE 1.015 1.010, 1.015, 1.020, 1.025 05/04/2024 12:18 AM [facility] PH,URINE 7.0 6.0, 7.0, 8.0, 5.5, 6.5, 7.5, 8.5 05/04/2024 12:18 AM [facility] UROBILINOGEN,Q UALITATIVE Normal Normal EU/dl 05/04/2024 12:18 AM [facility] PROTEIN, URINE Negative Negative mg/dL 05/04/2024 12:18 AM [facility] GLUCOSE, URINE Negative Negative mg/dL 05/04/2024 12:18 AM [facility] KETONES,URINE Negative Negative mg/dL 05/04/2024 12:18 AM [facility] BILIRUBIN,URIN E Negative Negative 05/04/2024 12:18 AM [facility] OCCULT BLOOD,URINE Negative Negative 05/04/2024 12:18 AM [facility] NITRITE Negative Negative 05/04/2024 12:18 AM [facility] LEUKOCYTE ESTERASE Negative Negative 05/04/2024 12:18 AM [facility] Urine URINE SPECIMEN / Unknown Non-Blood / Unknown 05/04/2024 12:07 AM SHAKE LOADER 05/04/2024 12:13 AM SHAKE LOADER Anika Mccracken MD URINE Final Resu lt Performing Organization Address City/[facility]/ZIP Co de Phone Number [facility] [address] [place] [address], [place] [phone] * URINE (05/04/2024 12:07 AM SHAKE LOADER) ,URIN E Negative Negative 05/04/2024 12:22 AM SHAKE LOADER [facility] Urine URINE SPECIMEN / Unknown Non-Blood / Unknown 05/04/2024 12:07 AM SHAKE LOADER 05/04/2024 12:13 AM SHAKE LOADER Anika Mccracken MD URINE Final Resu lt Performing Organization Address [facility]/ZIP Co de Phone Number [facility] [address] [place] [address], [place] [phone] * CWS PATH REVIEW HEMATOLOGY (05/03/2024 11:52 PM SHAKE LOADER) PATH COMMENT Comment: 05/06/2024 7:30 AM SHAKE LOADER [facility] Comment:Frequent sickle cell s. Reviewed by Dr. Richar Huffman on 05/05/2024 Blood BLOOD SPECIMEN / Unknown IV Start / Unknown 05/03/2024 11:52 PM SHAKE LOADER 05/03/2024 11:52 PM SHAKE LOADER Anika Mccracken MD LABORATORY Final Resu lt [facility] [address] [place] [address], [place] * (ABNORMAL) MANUAL DIFFERENTIAL (05/03/2024 11:52 PM SHAKE LOADER) Only the most recent of4 resultswithin the time period is included. % NEUTROPHILS 55.0 % 05/04/2024 12:13 AM SHAKE LOADER [facility] % LYMPHOCYTES 33.0 % 05/04/2024 12:13 AM SHAKE LOADER [facility] % MONOCYTES 10.0 % 05/04/2024 12:13 AM SHAKE LOADER [facility] % EOSINOPHILS 2.0 % 05/04/2024 12:13 AM SHAKE LOADER [facility] % BASOPHILS 0.0 % 05/04/2024 12:13 AM SHAKE LOADER [facility] NEUTROPHILS ABSOLUTE 10.6(H) 1.7 - 7.0 thou/cu mm 05/04/2024 12:13 AM SHAKE LOADER [facility] LYMPHOCYTES ABSOLUTE 6.3(H) 0.9 - 2.9 thou/cu mm 05/04/2024 12:13 AM SHAKE LOADER [facility] MONOCYTES ABSOLUTE 1.9(H) <0.9 thou/cu mm 05/04/2024 12:13 AM SHAKE LOADER [facility] EOSINOPHILS ABSOLUTE 0.4 <0.5 thou/cu mm 05/04/2024 12:13 AM SHAKE LOADER [facility] BASOPHILS ABSOLUTE 0.0 <0.3 thou/cu mm 05/04/2024 12:13 AM SHAKE LOADER [facility] Blood BLOOD SPECIMEN / Unknown IV Start / Unknown 05/03/2024 11:52 PM SHAKE LOADER 05/03/2024 11:52 PM SHAKE LOADER Anika Mccracken MD HEMATOLOGY Final Resu lt [facility] [address] [place] [address], * (ABNORMAL) D-DIMER,QUANTITATIVE (05/03/2024 11:52 PM SHAKE LOADER) D-DIMER,QUANTI TATIVE 1.51(H) <=0.49 FEU mcg/mL 05/04/2024 12:28 AM SHAKE LOADER [facility] Blood BLOOD SPECIMEN / Unknown IV Start / Unknown 05/03/2024 11:52 PM SHAKE LOADER 05/03/2024 11:52 PM SHAKE LOADER Narrative [facility] - 05/04/2024 12:28 AM SHAKE LOADER The cut off value for exclusion of Deep Vein Thrombosis and / or Pulmonary Embolism is 0.50 FEU mcg/mL For patients greater than 50 years of age the upper limit is age dependent and was calculated with the formula: (PATIENT AGE x 0.01) FEU mcg/mL = Upper limit of normal range Anika Mccracken MD HEMATOLOGY Final Resu lt [facility] [address] [place] [address], [place] [phone] * TYPE AND SCREEN ONLY (04/20/2024 4:43 PM SHAKE LOADER) Only the most recent of2 resultswithin the time period is included. [facility] ABORH A Rh Positive 04/20/2024 5:20 PM SHAKE LOADER [facility] Comment:Comment: Performed b y [facility], [address] [place] [address] ANTIBODY SCREEN Negative Negative 04/20/2024 5:20 PM SHAKE LOADER [facility] Comment:Comment: Performed b y [facility], [address] [place] [address] SPECIMEN EXPIRATION DATE/TIME 04/23/24 23:59 04/20/2024 5:20 PM SHAKE LOADER [facility] Blood BLOOD SPECIMEN / Unknown Butterfly / Unknown 04/20/2024 4:43 PM SHAKE LOADER 04/20/2024 4:48 PM SHAKE LOADER Maria Teresa SUTTON BLOOD BANK Final Result [facility] [address] [place] [address], [place] [phone] [facility] [address] [place] [address] * XR ANKLE 3 VIEWS LEFT (04/18/2024 5:09 AM SHAKE LOADER) Anatomical Region Laterality Modality ANKLES, ANKLE L Computed Radiogr aphy 04/18/2024 5:09 AM SHAKE LOADER Impressions 04/18/2024 5:11 AM SHAKE LOADER Normal joint spaces and alignment. No fracture. No significant soft tissue swelling. Ankle mortise intact. Narrative 04/18/2024 5:11 AM SHAKE LOADER For Patients: As a result of the Cures Act, medical imaging exams and procedure reports are released immediately into your electronic medical record. You may view this report before your referring provider. If you have questions, please contact your health care provider. EXAM: XR ANKLE 3 VIEWS LEFT LOCATION: [facility] DATE: 04/18/2024 INDICATION: Pain COMPARISON: None. Procedure Note Jayden Correa MD - 04/18/2024 For Patients: As a result of the Cures Act, medical imagingexams and procedure reports are released immediately into your electronicmedical record. You may view this report before your referring provider.If you have questions, please contact your health care provider. EXAM: XR ANKLE 3 VIEWS LEFT LOCATION: [facility] DATE: 04/18/2024 INDICATION: Pain COMPARISON: None. IMPRESSION: Normal joint spaces and alignment. No fracture. No significant soft tissueswelling. Ankle mortise intact. Elizabeth Duffy MD GENERAL IMAGING Final Res ult * C-REACTIVE PROTEIN (04/18/2024 4:59 AM SHAKE LOADER) Only the most recent of4 resultswithin the time period is included. C-REACTIVE PROTEIN <0.3 <0.5 mg/dL 04/18/2024 5:43 AM SHAKE LOADER [facility] Blood BLOOD SPECIMEN / Unknown Butterfly / Unknown 04/18/2024 4:59 AM SHAKE LOADER 04/18/2024 5:02 AM SHAKE LOADER Elizabeth Duffy MD CHEMISTRY Final Res ult Performing Organization Address [facility] Co de Phone Number [facility] [address] [place] [address], * SEDIMENTATION RATE (04/18/2024 4:58 AM SHAKE LOADER) Only the most recent of3 resultswithin the time period is included. SEDIMENTATION RATE 6 <20 mm/hr 2023 5:17 AM SHAKE LOADER [facility] Blood BLOOD SPECIMEN / Unknown Butterfly / Unknown 04/18/2024 4:58 AM SHAKE LOADER 04/18/2024 5:02 AM SHAKE LOADER Elizabeth Duffy MD HEMATOLOGY Final Res ult Performing Organization Address [facility] Co de Phone Number [facility] [address] [place] [address], * XR HIP 2 OR 3 VIEWS W PELVIS LEFT (04/15/2024 6:34 PM SHAKE LOADER) Anatomical Region Laterality Modality HIPS, HIPL, Pelvis Computed Radi ography 04/15/2024 6:34 PM SHAKE LOADER Impressions 04/15/2024 6:46 PM SHAKE LOADER No acute fracture or subluxation. Sclerosis of the left femoral head in keeping with osteonecrosis. No articular surface collapse. There is additional patchy sclerosis throughout the pelvis greatest in the right iliac bone which may represent additional osteonecrosis. Hip joint spaces are grossly preserved. 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 Narrative 04/15/2024 6:46 PM SHAKE LOADER For Patients: As a result of the [...] OR 3 VIEWS W PELVIS LEFT LOCATION: [facility] DATE: 04/15/2024 INDICATION: left hip pain, [...] US ABDOMEN LIMITED GALLBLADDER (04/06/2024 9:38 PM SHAKE LOADER) Anatomical Region Laterality Modality Abdomen Ultrasound 04/06/2024 9:38 PM SHAKE LOADER Impressions 04/06/2024 9:46 PM SHAKE LOADER 1. Cholelithiasis. Otherwise negative. Narrative 04/06/2024 9:46 PM SHAKE LOADER For Patients: As a result of the Cures Act, medical imaging exams and procedure reports are released immediately into your electronic medical record. You may view this report before your referring provider. If you have questions, please contact your health care provider. EXAM: US ABDOMEN LIMITED GALLBLADDER LOCATION: [facility] DATE: 04/06/2024 INDICATION: Right upper quadrant pain [...] provider. EXAM: US ABDOMEN LIMITED GALLBLADDER LOCATION: [facility] DATE: 04/06/2024 INDICATION: Right upper quadrant pain [...] (ABNORMAL) COMP METABOLIC PANEL (04/06/2024 8:55 PM SHAKE LOADER) SODIUM 140 136 - 145 mmol/L 04/06/2024 9:20 PM SHAKE LOADER [facility] POTASSIUM 4.5 3.5 - 5.1 mmol/L 04/06/2024 9:20 PM SHAKE LOADER [facility] CHLORIDE 108(H) 98 - 107 mmol/L 04/06/2024 9:20 PM SHAKE LOADER [facility] CO2,TOTAL 21(L) 22 - 29 mmol/L 04/06/2024 9:20 PM SHAKE LOADER [facility] ANION GAP 11 5 - 18 04/06/2024 9:20 PM SHAKE LOADER [facility] GLUCOSE 103(H) 70 - 99 mg/dL 04/06/2024 9:20 PM SHAKE LOADER [facility] CALCIUM 9.6 8.8 - 10.4 mg/dL 04/06/2024 9:20 PM SHAKE LOADER [facility] Comment: Reference ranges for this test were updated on 02/29/2024 to reflect our healthy population more accurately. Reference range changes are not retroactively applied to results, but previous results using the same methodology can be interpreted in the context of the new reference range. BUN 8 6 - 20 mg/dL 04/06/2024 9:20 PM SHAKE LOADER [facility] CREATININE 0.78 0.50 - 0.90 mg/dL 04/06/2024 9:20 PM SHAKE LOADER [facility] BUN/CREAT RATIO 10 10 - 20 9:20 PM SHAKE LOADER [facility] eGFR >90 >90 mL/min/1.7 3m2 04/06/2024 9:20 PM SHAKE LOADER [facility] Comment:As of 2021, eG FR is calculated by the CKD-EPI creatinine equation without race adjustment. eGFR can be influenced by muscle mass, exercise, and diet. The reported eGFR is an estimation only and is only applicable if the renal function is stable. ALBUMIN 4.7 4.0 - 4.9 g/dL 04/06/2024 9:20 PM SHAKE LOADER [facility] PROTEIN,TOTAL 8.6(H) 6.0 - 8.0 g/dL 04/06/2024 9:20 PM SHAKE LOADER [facility] BILIRUBIN,TOTAL 1.6(H) 0.0 - 1.2 mg/dL 04/06/2024 9:20 PM SHAKE LOADER [facility] ALK PHOSPHATASE 124(H) 35 - 104 IU/L 04/06/2024 9:20 PM SHAKE LOADER [facility] ALT (SGPT) 36(H) 10 - 35 IU/L 04/06/2024 9:20 PM SHAKE LOADER [facility] AST (SGOT) 37(H) 10 - 35 IU/L 04/06/2024 9:20 PM SHAKE LOADER [facility] Blood BLOOD SPECIMEN / Unknown Butterfly / Unknown 04/06/2024 8:55 PM SHAKE LOADER 04/06/2024 9:00 PM SHAKE LOADER Tanmay SUTTON CHEMISTRY Final R esult [facility] [address] [place] [address], * TROPONIN T (HS) ACUTE W/2HR REFLEX (04/04/2024 6:54 PM SHAKE LOADER) Only the most recent of2 resultswithin the time period is included. TROPONIN T HS <6 6-10 ng/L ng/L 04/04/2024 7:31 PM SHAKE LOADER [facility] Blood BLOOD SPECIMEN / Unknown Butterfly / Unknown 04/04/2024 6:54 PM SHAKE LOADER 04/04/2024 6:57 PM SHAKE LOADER Narrative [facility] - 04/04/2024 7:31 PM SHAKE LOADER hs-cTnT (Elecsys Troponin T Gen 5) concentration [...] low risk in emergency department patient population. Juhi SUTTON CHEMISTRY Final Re sult Performing Organization Address [facility] Co de Phone Number [facility] [address] [place] [address], [place] [phone] * (ABNORMAL) PLATELET COUNT (03/30/2024 8:15 AM SHAKE LOADER) Only the most recent of2 resultswithin the time period is included. PLATELET COUNT 531(H) 140 - 440 thou/cu mm 03/30/2024 8:22 AM SHAKE LOADER [facility] MPV 9.7 6.5 - 11.0 fL 03/30/2024 8:22 AM SHAKE LOADER [facility] Blood BLOOD SPECIMEN / Unknown Venipuncture / Unknown 03/30/2024 8:15 AM SHAKE LOADER 03/30/2024 8:18 AM SHAKE LOADER Albino Loco MD HEMATOLOGY Final Resu lt Performing Organization Address [facility] Co de Phone Number [facility] [address] [place] [address], [place] [phone] * (ABNORMAL) WHITE BLOOD COUNT (03/30/2024 8:15 AM SHAKE LOADER) Only the most recent of2 resultswithin the time period is included. WHITE BLOOD COUNT 11.8(H) 4.5 - 11.0 thou/cu mm 03/30/2024 8:22 AM SHAKE LOADER [facility] NRBC 0.3 % 03/30/2024 8:22 AM SHAKE LOADER [facility] ABS NRBC 0.0 thou /cu mm 03/30/2024 8:22 AM SHAKE LOADER [facility] Blood BLOOD SPECIMEN / Unknown Venipuncture / Unknown 03/30/2024 8:15 AM SHAKE LOADER 03/30/2024 8:18 AM SHAKE LOADER Albino Loco MD HEMATOLOGY Final Resu lt [facility] [address] [place] [address], * (ABNORMAL) SODIUM (03/30/2024 8:15 AM SHAKE LOADER) SODIUM 135(L) 136 - 145 mmol/L 03/30/2024 8:39 AM SHAKE LOADER [facility] Blood BLOOD SPECIMEN / Unknown Venipuncture / Unknown 03/30/2024 8:15 AM SHAKE LOADER 03/30/2024 8:18 AM SHAKE LOADER Albino Loco MD CHEMISTRY Final Resu lt [facility] [address] [place] [address], * POTASSIUM (03/30/2024 8:15 AM SHAKE LOADER) POTASSIUM 4.3 3.5 - 5.1 mmol/L 03/30/2024 8:39 AM SHAKE LOADER [facility] Blood BLOOD SPECIMEN / Unknown Venipuncture / Unknown 03/30/2024 8:15 AM SHAKE LOADER 03/30/2024 8:18 AM SHAKE LOADER Albino Loco MD CHEMISTRY Final Resu lt Performing Organization Address City/[facility]/ZIP Co de Phone Number [address] [address], * CREATININE (03/30/2024 8:15 AM SHAKE LOADER) eGFR >90 >90 mL/min/1.7 3m2 03/30/2024 8:39 AM SHAKE LOADER [facility] Comment:As of 2021, eG FR is calculated by the CKD-EPI creatinine equation without race adjustment. eGFR can be influenced by muscle mass, exercise, and diet. The reported eGFR is an estimation only and is only applicable if the renal function is stable. CREATININE 0.56 0.50 - 0.90 mg/dL 03/30/2024 8:39 AM SHAKE LOADER [facility] Blood BLOOD SPECIMEN / Unknown Venipuncture / Unknown 03/30/2024 8:15 AM SHAKE LOADER 03/30/2024 8:18 AM SHAKE LOADER Albino Loco MD CHEMISTRY Final Resu lt Performing Organization Address City/[facility]/ZIP Co de Phone Number [facility] [address] [place] [address], [place] [phone] * (ABNORMAL) BILIRUBIN,TOTAL (03/29/2024 5:44 AM SHAKE LOADER) BILIRUBIN,TOTA L 1.8(H) 0.0 - 1.2 mg/dL 03/29/2024 6:45 AM SHAKE LOADER [facility] Blood BLOOD SPECIMEN / Unknown Venipuncture / Unknown 03/29/2024 5:44 AM SHAKE LOADER 03/29/2024 6:20 AM SHAKE LOADER Berenicefernjesica Evgeny LUCAS CHEMISTRY Liss l Result [facility] [address] [place] [address], * (ABNORMAL) Bilirubin, total/direct FOR ADD ON (03/28/2024 7:53 PM SHAKE LOADER) BILIRUBIN,TOTA L 2.4(H) 0.0 - 1.2 mg/dL 03/28/2024 9:52 PM SHAKE LOADER [facility] BILIRUBIN,DIRE CT 0.9(H) 0.0 - 0.2 mg/dL 03/28/2024 9:52 PM SHAKE LOADER [facility] BILIRUBIN,HERBERT RECT 1.5(H) 0.2 - 0.8 mg/dL 03/28/2024 9:52 PM SHAKE LOADER [facility] Blood BLOOD SPECIMEN / Unknown IV Start / Unknown 03/28/2024 7:53 PM SHAKE LOADER 03/28/2024 7:57 PM SHAKE LOADER Casey Pittman [facility] CHEMISTRY Liss l Result [facility] [address] [place] [id number], * BLOOD CULTURE (03/28/2024 2:17 AM SHAKE LOADER) Only the most recent of2 resultswithin the time period is included. CULTURE No Growth. 04/02/2024 9:01 AM SHAKE LOADER [facility] Blood BLOOD SPECIMEN / Unknown Venipuncture / Unknown 03/28/2024 2:17 AM SHAKE LOADER 03/28/2024 2:20 AM SHAKE LOADER [facility] Moy Ramsey MD MICROBIOLOGY Final Result [facility] [address] [place] [address], * PROCALCITONIN (03/28/2024 2:06 AM SHAKE LOADER) PROCALCITONIN 0.05 ng/ml 03/28/2024 4:15 AM SHAKE LOADER [facility] Blood BLOOD SPECIMEN / Unknown Venipuncture / Unknown 03/28/2024 2:06 AM SHAKE LOADER 03/28/2024 2:20 AM SHAKE LOADER Narrative [facility] - 03/28/2024 4:15 AM SHAKE LOADER Procalcitonin for initial assessment of Lower Respiratory [...] any concentrations < 2 ng/mL are obtained. [facility] Moy Ramsey MD SEND OUTS Final Result [facility] [address] [facility] [place] [address], from Last 3 Months Insurance [facility] [place] [id number] [facility] Advance Directives * Full Code (Latest Code Status on File) Date Activated Date Inactivated Comments 03/28/2024 10:36 PM 03/30/2024 11:39 AM Question Answer Comments Code Status Discussion: Reviewed Preferences * Full Code Date Activated Date Inactivated Comments 03/16/2024 1:29 AM 03/18/2024 1:58 PM Question Answer Comments Code Status Discussion: Reviewed Preferences Care Teams Wildlife Policy Professional Relationship Specialty Start Date End Date Veronica Joseph MD [address] [place] [address] PCP - General Family Practice 03/29/24
--- OUTSIDE RECORDS SUMMARY | 2024-06-22 01:05 | XMS_ITS | Encounter Summary ---
Author Organization [place] Address [address] [place] [address]. [place] [address] Care Team Providers Care Pole Sander Operator Name Role Phone No Ref-Primary, Physician Primary Care Provider Mor Ramsey Unavailable Unavailable Case Samuel MD Unavailable [phone] Juhi Benson RN Unavailable Unavailable Encounter Details [...] on file Legal Sex Female 8:25 AM DREDGING INSPECTOR Gender Identity Not on file Sexual Orientation Not on file documented as of this encounter Plan of Treatment Not on file documented as of this encounter Goals Goal Patient Goal Type Associated Problems Recent Progress Patient-Stated? Author Pain Management General On track( 025 12:40 PM DREDGING INSPECTOR) Yes Juhi Benson RN Note: Goal Statement: [...] on filedocumented in this encounter Care Teams Pole Sander Operator Relationship Specialty Start Date End Date No Ref-Primary, Physician PCP - General 03/15/24 06/17/24 Mor Ramsey Medical Student 04/03/24 Case Samuel MD [address] [place] [address], [address] [place] [address] Assigned Pediatric Specialist Provider 05/18/24 Juhi Benson RN Specialty Produce Service Team Member Hematology & Oncology 05/29/24 documented as of this encounter
--- OUTSIDE RECORDS SUMMARY | 2024-06-22 01:05 | XMS_ITS | Encounter Summary ---
Author Organization [place] Address [address] [place] [address] Care Team Providers Care Store Sales Leader Name Role Phone No Ref-Primary, Physician Primary Care Provider Mor Ramsey Unavailable Unavailable Case Samuel MD Unavailable [phone] Juhi Benson RN Unavailable Unavailable Reason for Visit * Reason Comments Sickle Cell Pain Crisis Encounter Details Date Type Department Care Team (Late st Contact Info) Description 06/11/2024 9:02 PM RIP/MOULD OPERATOR - 06/12/2024 1:57 AM [facility] Emergency [facility] Emergency Room [address] [place] [address] Iliana Weber MD [facility] [address] [place] [address] Sickle cell pain crisis (H) Discharge Disposition: [...] on file Legal Sex Female 8:25 AM RIP/MOULD OPERATOR Gender Identity Not on file Sexual Orientation Not on file documented as of this encounter Last Filed Vital Signs Vital Sign Reading Time Taken Comments Blood Pressure 118/75 06/12/2024 12:45 AM RIP/MOULD OPERATOR Pulse 91 06/12/2024 12:45 AM RIP/MOULD OPERATOR Temperature 36.5 C (97.7 F) 06/11/2024 8:58 PM RIP/MOULD OPERATOR Respiratory Rate 19 06/12/2024 12:45 AM RIP/MOULD OPERATOR Oxygen Saturation 95% 06/12/2024 12:45 AM RIP/MOULD OPERATOR Inhaled Oxygen Concentration - - Weight 52.2 kg (115 lb) 06/11/2024 8:58 PM RIP/MOULD OPERATOR Height 154.9 cm (5' 1) 06/11/2024 8:58 PM RIP/MOULD OPERATOR Body Mass Index 21.73 06/11/2024 8:58 PM RIP/MOULD OPERATOR documented in this encounter Discharge Instructions * [...] 05/01/2024 naloxone (NARCAN) 4 MG/0.1ML nasal spray [place] 1 spray (4 mg) into one nostril [...] CST Gave handoff report to Niki BLACK /MOULD OPERATOR * Shane Santos RN - 06/11/2024 10:00 PM CST Pt drove here as seen on security footage. Notified Dr Weber, and ok to proceed with treatment plan as ordered. Pt was advised to arrange a ride home. /MOULD OPERATOR * Iliana Weber MD - 06/11/2024 9:08 [...] get infusion therapies frequently. Last seen at [facility] 06/11/2024 early this morning about midnight. Careplan [...] with other provider:Did you involve another provider (industry consultant, MH, pharmacy, etc.)?: No Discharge. 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 Recently moved to [place] from [place], [place]. She is 1 of 9 [...] Social Connections: Socially Integrated (03/28/2024) Received from [facility] Social Connections Do you often feel [...] dry. Normal skin color. Neuro: Speech clear. statistics tutor grossly intact. Moves all extremities appropriately. Strength [...] Given normal axis. QTcis 453, QRS 78, WI 158. As compared to previous EKG from June 05, 2024 T wave slightly flattened in 3 and aVF but otherwise no significant change. I have independently reviewed and interpreted the EKG(s) documented above. Iliana Weber M.D. Emergency Medicine [facility] EMERGENCY ROOM [address] [facility] [address] Dept: [phone] Iliana Weber MD 06/12/24 0149 /MOULD OPERATOR * Jennifer Muse RN - 06/11/2024 8:56 [...] WDL WDL Cognitive/Neuro/Behavioral WDL Cognitive/Neuro/Behavioral WDL WDL /MOULD OPERATOR documented in this encounter Plan of Treatment Not on file documented as of this encounter Goals Goal Patient Goal Type Associated Problems Recent Progress Patient-Stated? Author Pain Management General On track( 025 12:40 PM RIP/MOULD OPERATOR) Yes Juhi Benson, RN Note: Goal [...] WITH MUSE SJN,SJO,[facility] STAT 06/11/2024 9:04 PM RIP/MOULD OPERATOR documented in this encounter Results * ECG 12-LEAD WITH MUSE (LHE) (06/11/2024 9:04 PM RIP/MOULD OPERATOR) Systolic Blood Pressure mmHg RADIOLOGY RESULTS Diastolic Blood Pressure mmHg RADIOLOGY RESULTS Ventricular Rate 102 BPM RAD IOLOGY RESULTS Atrial Rate 102 BPM RADIOLOG Y RESULTS WI Interval 158 ms RADIOLOG Y RESULTS QRS Duration 78 ms RADIOLO GY RESULTS QT 348 ms RADIOLOGY RESULTS QTc 453 ms RADIOLOGY RESULTS P [place] 39 degrees RADIOLOGY RESULTS R AXIS 66 degrees RADIOLOGY RESULTS T [place] 33 degrees RADIOLOGY RESULTS Interpretation ECG Sinus tachycardia Nonspecific T wave abnormality Abnormal ECG When compared with ECG of 05-Jun-2024 11:40, No significant change was found Confirmed by SEE ED PROVIDER NOTE FOR, ECG INTERPRETATION (4000), editor newspaper SELMA GARRISON ([id number]) on 06/11/2024 9:05:27 PM RADIOLOGY RESULTS 06/11/2024 9:04 PM RIP/MOULD OPERATOR 06/11/2024 9:05 PM RIP/MOULD OPERATOR us Deshawn Arredondo MD ECG ORDERABLES Edited [...] For 1 dose $Given 06/12/2024 1:32 AM RIP/MOULD OPERATOR 25 mg heparin lock flush 100 unit/mL [...] each port lumen $Given 06/12/2024 1:47 AM RIP/MOULD OPERATOR 5 mLs HYDROmorphone (DILAUDID) injection 2 mg 2 mg, Intravenous, EVERY 1 HOUR PRN, moderate pain, Starting on Wed06/11/24 at 2103, For 3 doses $Given 06/12/2024 12:23 AM RIP/MOULD OPERATOR 2 mg $Given 06/11/2024 11:16 PM RIP/MOULD OPERATOR 2 mg $Given 06/11/2024 10:09 PM RIP/MOULD OPERATOR 2 mg lactated ringers BOLUS 1,000 mL Intravenous, 1,000 mL, ONCE, at 500 mL/hr, Administer over 2 Hours, On 06/11/24 at 2130, For 1 dose $New Bag 06/11/2024 10:03 PM RIP/MOULD OPERATOR 1,000 mLs 500 mL/hr ondansetron (ZOFRAN) injection 8 mg 8 mg, Intravenous, ONCE, Administer over 2-5 Minutes, On 06/11/24 at 2130, For 1 dose $Given 06/11/2024 10:08 PM RIP/MOULD OPERATOR 8 mg sodium chloride (PF) 0.9% PF [...] Recently Administered Medications Times are shown in RIP/MOULD OPERATOR. Scheduled Medication Order 06/10/2024 06/11/2024 06/12/2024 diphenhydrAMINE [...] Provider: Shane Santos RN)2316 ($Given - Provider: Guilel Payan, SOFIA) 0023 ($Given - Provider: Guille [...] draw. documented in this encounter Care Teams Store Sales Leader Relationship Specialty Start Date End Date No Ref-Primary, Physician PCP - General 03/15/24 06/17/24 Mor Ramsey Medical Student 04/03/24 Case Samuel MD [address] [place] [address], [address] [place] [address] Assigned Pediatric Specialist Provider 05/18/24 Juhi Benson, RN Specialty Stenographic Court Reporter Hematology & Oncology 05/29/24 documented as of this encounter
--- OUTSIDE RECORDS SUMMARY | 2024-06-22 01:05 | XMS_ITS | Encounter Summary ---
Author Organization [facility] [place] Address [address] [place] [address]. [place] [address] Care Team Providers Care Trolley Collector Name Role Phone No Ref-Primary, Physician Primary Care Provider Mor Ramsey Unavailable Unavailable Case Samuel MD Unavailable [phone] Juhi Benson RN Unavailable Unavailable Encounter Details [...] on file Legal Sex Female 8:25 AM MANAGER OF CASE Gender Identity Not on file Sexual Orientation Not on file documented as of this encounter Plan of Treatment Not on file documented as of this encounter Goals Goal Patient Goal Type Associated Problems Recent Progress Patient-Stated? Author Pain Management General On track( 025 12:40 PM MANAGER OF CASE) Yes Juhi Benson RN Note: Goal Statement: [...] on filedocumented in this encounter Care Teams Trolley Collector Relationship Specialty Start Date End Date No Ref-Primary, Physician PCP - General 03/15/24 06/17/24 Mor Ramsey Medical Student 04/03/24 Case Samuel MD [address] [place] [address], [address] [place] [address] Assigned Pediatric Specialist Provider 05/18/24 Juhi Benson RN Specialty Packer And Carry Out Hematology & Oncology 05/29/24 documented as of this encounter
--- OUTSIDE RECORDS SUMMARY | 2024-06-22 01:06 | XMS_ITS | Encounter Summary ---
Author Organization [facility] Address [address] [place] [address]. 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 Call member services at your health plan with any benefit or coverage questions. TAL PRODUCER Reason for Visit * Reason Comments Sickle Cell Pain Crisis * Auth/Cert Specialty Diagnoses / Procedures Referred By Contkameron t Referred To Contact EMERGENCY MEDICINE Diagnoses Acute chest pain Sickle cell pain crisis (H) [facility] Emergency Department [address] [place] [address] Phone: tel: Referral ID Status Reason Start Date Expiration Date Visits Re quested Visits Authorized [id number] 1 1 Encounter Details Date Type Department Care Team (Latest Contact Info) Description 06/12/2024 6:38 PM DIGITAL PRODUCER - 06/15/2024 10:48 AM DIGITAL PRODUCER [facility] Emergency Department [address] [place] [phone] Abdelrahman Goddard MD [address] [place] [address] Andres Jain DO Duffy, Briar, MD [address] [facility] [address] [place] [address] 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) [...] on file Legal Sex Female 8:25 AM DIGITAL PRODUCER Gender Identity Not on file Sexual Orientation Not on file documented as of this encounter Last Filed Vital Signs Vital Sign Reading Time Taken Comments Blood Pressure 99/64 06/15/2024 6:10 AM DIGITAL PRODUCER Pulse 75 06/15/2024 6:10 AM DIGITAL PRODUCER Temperature 36.7 C (98 F) 06/15/2024 6:10 AM DIGITAL PRODUCER Respiratory Rate 16 06/15/2024 6:10 AM DIGITAL PRODUCER Oxygen Saturation 100% 06/15/2024 6:10 AM DIGITAL PRODUCER Inhaled Oxygen Concentration - - Weight - [...] 05/01/2024 naloxone (NARCAN) 4 MG/0.1ML nasal spray Conway 1 spray (4 mg) into one nostril [...] Overall, I spent 35 minutes today (DOS) [id number] and/or coordinating care as documented above and specifically listed as below: --Reviewing documentation related to patient's history and this current admission available in [facility] --Review and clinical interpretation of pertinent laboratory test results and radiology reports from this admission --Discussion of the patient's case with the members of the Hematology Consult Team --Discussion with the patient --Documentation in the electronic health record TAL PRODUCER * Rl Elias MD - 06/14/2024 7:08 [...] Service (when I saw the patient): 06/14/24 [facility] Progress Note - Medicine Service, [facility] TEAM 1 Date of Admission: 06/12/2024 Assessment [...] 7-9, most recent Hbg 8.8 on 06/07 CERTIFIED MEDICAL AIDE. Hb.5 -> 6.4 -> 6.8 -> 6.9 Plan: - Blood cultures pending x2 - NGTD - CTM hemoglobin daily - Ordered Voltaren gel, lidocaine patches, and icy hot PRN - Continue Ceftriaxone and Azithromycin for ppx (06/12 -*), consider transition to PO this afternoon - Continue CERTIFIED MEDICAL AIDE hydroxyurea - Continue CERTIFIED MEDICAL AIDE folic acid - Continue IS - type and screen ordered, consented for blood on 06/13 - no indication for transfusion unless hemodynamically unstable - Hematology consulted, appreciate recs - Hydromorphone 2 mg IV Q2H scheduled--titrate within 24-48 hours - Maintenance LR - Transfusion not recommended at this time - albuterol inhaler q6h, zofran, benadryl, docusate, senna PRN #Anxiety #Nausea - Continue CERTIFIED MEDICAL AIDE Fluoxetine - Benadryl PRN per Pain Plan [...] Nivia Carvajal, MS3 Medical Student Medicine Service, [facility] TEAM [address] [place] [address] Securely message with Biottery (more info) Text page via Outline App Paging/Directory See signed in provider for up [...] German Hall MD at 06/19/2024 8:50 AM DIGITAL PRODUCER TAL PRODUCER TAL PRODUCER TAL PRODUCER Associated attestation - German Hall MD - 06/19/2024 8:50 AM DIGITAL PRODUCER Attestation: This patient has been seen and [...] Service (when I saw the patient): 06/13/24 [facility] Progress Note - Medicine Service, [facility] TEAM 1 Date of Admission: 06/12/2024 Assessment [...] 7-9, most recent Hbg 8.8 on 06/07 CERTIFIED MEDICAL AIDE. Hb.5 -> 6.4 Plan: -Blood cultures pending x2 -CTM hemoglobin daily -Continue Ceftriaxone and Azithromycin for ppx (06/12 -*) -Continue CERTIFIED MEDICAL AIDE hydroxyurea -Continue CERTIFIED MEDICAL AIDE folic acid - type and screen ordered, consented for blood - no indication for transfusion unless hemodynamic instability - Hematology consulted, appreciate recs -Hydromorphone 2 mg IV Q3H scheduled--titrate within 24-48 hours -Maintenance LR -Transfusion not recommended at this time - zofran, benadryl, docusate, senna PRN #Anxiety #Nausea -Continue CERTIFIED MEDICAL AIDE Fluoxetine -Benadryl PRN per Pain Plan -Zofran [...] Nivia Carvajal, MS3 Medical Student Medicine Service, [facility] TEAM [address] [place] [address] Securely message with Biottery (more info) Text page via [facility] Paging/Directory See signed in provider for up [...] German Hall MD at 06/14/2024 8:25 AM DIGITAL PRODUCER TAL PRODUCER TAL PRODUCER Associated attestation - German Hall MD - 06/14/2024 8:25 AM DIGITAL PRODUCER Attestation: This patient has been seen and evaluated by me, German Hall MD. Discussed with the house staff team or resident(s) and agree with the findings and plan in this note. I have reviewed today's Medications, Vital Signs, and Labs. DOS 06/13 * Mary Flores MD - 06/12/2024 8:20 PM CST call out operator Hematology fellow note 29F Sickle cell disease [...] Flores MD MS Hematology fellow, PGY5 Pager: [phone] Cosigned by Kirstin Long MD at 06/13/2024 7:25 AM DIGITAL PRODUCER TAL PRODUCER TAL PRODUCER TAL PRODUCER Associated attestation - Kirstin Long MD - 06/13/2024 7:25 AM DIGITAL PRODUCER Physician Attestation I discussed patient overnight with fellow brickmason helper. I agree with plan as outlined. I did not see thepatient on this date. Kirstin Long MD/PhD documented in this encounter H&P Notes * Laquita Kelley MD - 06/12/2024 9:37 PM CST [facility] History and Physical - Medicine Service, [facility] TEAM Date of Admission: 06/12/2024 Assessment & [...] of avascular necrosis of left hip -Continue CERTIFIED MEDICAL AIDE hydroxyurea -Continue CERTIFIED MEDICAL AIDE folic acid -Transfuse for Hb<7 #Stroke reported [...] Jain . Laquita Kelley MD Medicine Service, [facility] Securely message with Biottery (Prolify info) Text page via [facility] Paging/Directory See signed in provider for up 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, had [facility] in [facility] Functional asplenia Gallstones 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 [...] 4 MG/0.1ML nasal spray No No Sig: Conway 1 spray (4 mg) into one nostril [...] Andres Jain DO at 06/12/2024 10:27 PM DIGITAL PRODUCER TAL PRODUCER TAL PRODUCER TAL PRODUCER TAL PRODUCER Associated attestation - Andres Jain DO - 06/12/2024 10:27 PM DIGITAL PRODUCER Physician Attestation I saw this patient with [...] Communication Assessment Patient's communication style: spoken language (Spanish or Bilingual) Cognitive Cognitive/Neuro/Behavioral: WDL Living Environment: [...] Depression: Not at risk (04/11/2024) Received from [email or web address] PHQ-2 PHQ-2 TOTAL SCORE: 1 Housing Stability: [...] Social Connections: Socially Integrated (03/28/2024) Received from [email or web address] Social Connections Do you often feel lonely or isolated from those around you?: 0 Health Literacy: Not on file Functional Status: Prior to admission patient needed assistance: Dependent ADLs:: Independent Dependent IADLs:: Independent Mental Health Status: Mental Health Status: No Current Concerns Chemical Dependency Status: Chemical Dependency Status: No Current Concerns Values/Beliefs: Spiritual, Cultural Beliefs, Mandaen Practices, Values that affect care: no Discussed [...] Katheryn Carter RN, PHN, BSN Float Nurse Adjunct Mathematics Instructor Covering for Unit ED Phone [phone] TAL PRODUCER * Kirstin Long MD - 06/13/2024 10:17 AM CSTAssociated Order(s): HEMATOLOGY ADULT IP CONSULT Images from the original note were not included. 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 TAL PRODUCER documented in this encounter ED Notes * uJhi Crump RN - 06/12/2024 6:55 PM CST Bed: [facility] Expected date: Expected time: Means of arrival: Comments: SICK TAL PRODUCER * Lebron Aponte RN - 06/12/2024 6:34 PM CST Pt ambulatory to triage with CC of sickle cell pain in the L upper anterior chest. Was seen for this at [facility] last night. Reports interventions at [facility] were helpful, however pain has returned. Patient reports taking 4mg po Dilaudid at 1500 with partial relief of pain but is still severe. Contacted slug press operator and was instructed to come to [facility]. Reports SOB a little bit. It hurts to take a deep breath. Denies dizziness. Triage Assessment (Adult) Row Name 06/12/24 8163 Triage Assessment Airway WDL WDL Respiratory WDL Respiratory WDL WDL Skin Circulation/Temperature WDL Skin Circulation/Temperature WDL WDL Cardiac WDL Cardiac WDL X;chest pain Chest Pain Assessment Chest Pain Location anterior chest, left Peripheral/Neurovascular WDL Peripheral Neurovascular WDL WDL Cognitive/Neuro/Behavioral WDL Cognitive/Neuro/Behavioral WDL WDL [place] Coma Scale Best Eye Response 4-->(E4) spontaneous Best Motor Response 6-->(M6) obeys commands Best Verbal Response 5-->(V5) oriented [place] Coma Scale Score 15 TAL PRODUCER * Abdelrahman Goddard MD - 06/12/2024 6:20 PM CST Images from the original note were not included. 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 [...] chest pain Rhythm: normal sinus Rate: 94BPM Hoven: Normal Ectopy: none Conduction: normal ST Segments/ [...] Rate 102 BPM Atrial Rate 102 BPM VT Interval 158 ms QRS Duration 78 ms QT 348 ms QTc 453 ms P Hoven 39 degrees R AXIS 66 degrees T Hoven 33 degrees Interpretation ECG Sinus tachycardia Nonspecific T wave abnormality Abnormal ECG When compared with ECG of 05-Jun-2024 11:40, No significant change was found Confirmed by SEE ED PROVIDER NOTE FOR, ECG INTERPRETATION ([id number]), art editor SELMA GARRISON ([id number]) on 06/11/2024 9:05:27 PM Medications - No [...] Long, am serving as a trained medical practice manager to document services personally performed by Abdelrahman Goddard MD, based on the provider's statements to me. Abdelrahman Long MD, was physically present and have reviewed and verified the accuracy of this note documented by Jovanny Hernadez. Abdelrahman Goddard MD [facility] 06/12/2024 Abdelrahman Goddard MD 06/12/242023 TAL PRODUCER documented in this encounter Miscellaneous Notes * Plan of Care - Clay Avina RN - 06/15/2024 9:55 AM CST Goal Outcome Evaluation: Plan of Care Reviewed With: patient Overall Patient Progress: improving 4x A/O. VSS. RA. Independent. AVS reviewed, questions answered. Port de accessed with saline flush and heparin locked. TAL PRODUCER * Plan of Care - Kathy Levy RN - 06/15/2024 6:22 AM CST Goal Outcome Evaluation: Plan of Care Reviewed With: patient Overall Patient Progress: improving Pt is alert anf oriented x4. VSS, on room air with no SOB noted. On pain management for sickle cellcrisis. Tolerating diet well with no n/v. L chest port infusing intermittent IV ABT. Voiding well. Last BM CERTIFIED MEDICAL AIDE. Pt is up ad chandler. Will continue with plan of care. TAL PRODUCER * Plan of Care - Clay Avina RN - 06/14/2024 5:02 PM CST Goal Outcome Evaluation: Plan of Care Reviewed With: patient Overall Patient Progress: improving 4x A/O. VSS. Independent. Pain controlled with schedule q2hr IV dilaudid. Tolerating regular diet. Voiding spontaneously. Had nausea in AM, relieved with Zofran. Port SL. TAL PRODUCER * Pharmacy-Admission Medication History - Lucio Lorenza - 06/14/2024 11:19 AM CST Gas Regulator Repairer Helper Admission Medication History Admission medication history is complete. The information provided in this note is only as accurateas the sources available at the time of the update. Information Source(s): Patient and CareEverywhere/SureScripts via in-person Pertinent Information: Medication reconciliation completed at bedside with patient. Patient was a good historian of her medication names, doses, frequencies, and last doses. Changes made to CERTIFIED MEDICAL AIDE medication list: Added: Epi-pen: patient has pen available, but has not used recently. Ibuprofen: OTC product used PRN for pain. Benadryl: OTC product used PRN for itching due to hydromorphone. Deleted: None Changed: None Allergies reviewed with patient and updates made in EHR: yes Medication History Completed By: Lorenza Valdes 06/14/2024 11:19 AM CERTIFIED MEDICAL AIDE Med List Medication Sig Last Dose/Taking diphenhydrAMINE [...] Morning naloxone (NARCAN) 4 MG/0.1ML nasal spray Conway 1 spray (4 mg) into one nostril alternating nostrilsas needed for opioid reversal (for opiate overdose if not breathing and unconscious. have your family member watch video on how to use/read information sheet). every 2-3 minutes until assistance arrives Taking As Needed Cosigned by Terrell Fernandez RPH at 06/15/2024 10:33 AM DIGITAL PRODUCER TAL PRODUCER TAL PRODUCER Associated attestation - Terrell Fernandez RPH - 06/15/2024 10:33 AM DIGITAL PRODUCER I have read and agree with the student's note. Terrell Fernandez, PGY-1 Product Promoter Sales Person * Provider Notification - Kiki Caal RN - 06/13/2024 7:27 PM DIGITAL PRODUCER Notified providers Nivia Carvajal, Laquita Kelley and Rl Elias of critical Hgb 6.8 at 1920. No new orders TAL PRODUCER * Plan of Care - Katheryn Carter RN - 06/13/2024 12:44 PM CST Goal Outcome Evaluation: Plan of Care Reviewed With: patient Overall Patient Progress: improvingOverall Patient Progress: improving Outcome Evaluation: Plan: TBD Katheryn Carter RN, PHN, BSN Float Nurse Adjunct Mathematics Instructor Covering for Unit ED Phone [phone] TAL PRODUCER * Plan of Care - Shauna Cuadra [...] with POC. Notify primary team with changes. 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 Author Pain Management General On track( 025 12:40 PM DIGITAL PRODUCER) Yes Juhi Benson, SOFIA Note: Goal Statement: [...] PLATELETS AND DIFFERENTIAL STAT 06/15/2024 6:09 AM DIGITAL PRODUCER CBC WITH PLATELETS & DIFFERENTIAL STAT 06/15/2024 6:09 AM DIGITAL PRODUCER BASIC METABOLIC PANEL STAT 06/15/2024 6:09 AM DIGITAL PRODUCER XR CHEST PORT 1 VIEW STAT 06/14/2024 8:46 AM DIGITAL PRODUCER BASIC METABOLIC PANEL STAT 06/14/2024 7:08 AM DIGITAL PRODUCER CBC WITH PLATELETS STAT 06/14/2024 7: 08 AM DIGITAL PRODUCER CBC WITH PLATELETS STAT 06/13/2024 6: 32 PM DIGITAL PRODUCER RBC AND PLATELET MORPHOLOGY STAT 06/13/2024 6:00 AM DIGITAL PRODUCER CBC WITH PLATELETS AND DIFFERENTIAL STAT 06/13/2024 6:00 AM DIGITAL PRODUCER CBC WITH PLATELETS & DIFFERENTIAL STAT 06/13/2024 6:00 AM DIGITAL PRODUCER BASIC METABOLIC PANEL STAT 06/13/2024 5:59 AM DIGITAL PRODUCER RESPIRATORY PANEL PCR STAT 06/12/2024 9:34 PM DIGITAL PRODUCER BLOOD CULTURE STAT 06/12/2024 8:46 PM DIGITAL PRODUCER BLOOD CULTURE STAT 06/12/2024 8:46 PM DIGITAL PRODUCER XR CHEST 2 VIEWS STAT 06/12/2024 7:38 PM DIGITAL PRODUCER RBC AND PLATELET MORPHOLOGY STAT 06/12/2024 7:17 PM DIGITAL PRODUCER CBC WITH PLATELETS AND DIFFERENTIAL STAT 06/12/2024 7:17 PM DIGITAL PRODUCER TYPE AND SCREEN, ADULT Routine 06/12/2024 7:17 PM DIGITAL PRODUCER TROPONIN T, HIGH SENSITIVITY STAT 06/12/2024 7:17 PM DIGITAL PRODUCER CBC WITH PLATELETS & DIFFERENTIAL STAT 06/12/2024 7:17 PM DIGITAL PRODUCER INR STAT 06/12/2024 7:17 PM DIGITAL PRODUCER BLOOD GAS VENOUS STAT 06/12/2024 7:17 PM DIGITAL PRODUCER ABO/RH TYPE AND SCREEN Add-On 06/12/2024 7:17 PM DIGITAL PRODUCER BASIC METABOLIC PANEL STAT 06/12/2024 7:17 PM DIGITAL PRODUCER EKG 12-LEAD, TRACING ONLY STAT 06/12/2024 6:37 PM DIGITAL PRODUCER documented in this encounter Results * (ABNORMAL) CBC with platelets and differential (06/15/2024 6:09 AM DIGITAL PRODUCER) [facility] WBC Count 11.8(H) 4.0 - 11.0 10e3/uL 06/15/2024 6:36 AM DIGITAL PRODUCER [facility] RBC Count 2.27(L) 3.80 - 5.20 10e6/uL 06/15/2024 6:36 AM DIGITAL PRODUCER [facility] Hemoglobin 7.2(L) 11.7 - 15.7 g/dL 06/15/2024 6:36 AM DIGITAL PRODUCER [facility] Hematocrit 20.4(L) 35.0 - 47.0 % 06/15/2024 6:36 AM DIGITAL PRODUCER [facility] MCV 90 78 - 100 fL 06/15/2024 6:36 AM DIGITAL PRODUCER [facility] MCH 31.7 26.5 - 33.0 pg 06/15/2024 6:36 AM DIGITAL PRODUCER [facility] MCHC 35.3 31.5 - 36.5 g/dL 06/15/2024 6:36 AM DIGITAL PRODUCER [facility] RDW 19.0(H) 10.0 - 15.0 % 06/15/2024 6:36 AM DIGITAL PRODUCER [facility] Platelet Count 500(H) 150 - 450 10e3/uL 06/15/2024 6:36 AM DIGITAL PRODUCER [facility] % Neutrophils 54 % 06/15/2024 6:36 AM DIGITAL PRODUCER [facility] % Lymphocytes 31 % 06/15/2024 6:36 AM DIGITAL PRODUCER [facility] % Monocytes 9 % 06/15/2024 6:36 AM DIGITAL PRODUCER [facility] % Eosinophils 5 % 06/15/2024 6:36 AM DIGITAL PRODUCER [facility] % Basophils 2 % 06/15/2024 6:36 AM DIGITAL PRODUCER [facility] % Immature Granulocytes 1 % 06/15/2024 6:36 AM DIGITAL PRODUCER [facility] NRBCs per 100 WBC 2(H) <1 /100 025 6:36 AM DIGITAL PRODUCER [facility] Absolute Neutrophils 6.3 1.6 - 8.3 10e3/uL 06/15/2024 6:36 AM DIGITAL PRODUCER [facility] Absolute Lymphocytes 3.6 0.8 - 5.3 10e3/uL 06/15/2024 6:36 AM DIGITAL PRODUCER [facility] Absolute Monocytes 1.0 0.0 - 1.3 10e3/uL 06/15/2024 6:36 AM DIGITAL PRODUCER [facility] Absolute Eosinophils 0.6 0.0 - 0.7 10e3/uL 06/15/2024 6:36 AM DIGITAL PRODUCER [facility] Absolute Basophils 0.2 0.0 - 0.2 10e3/uL 06/15/2024 6:36 AM DIGITAL PRODUCER [facility] Absolute Immature Granulocytes 0.1 <=0.4 10e3/uL 06/15/2024 6:36 AM DIGITAL PRODUCER [facility] Absolute NRBCs 0.2 10e3/uL 06/15/2024 6:36 AM DIGITAL PRODUCER [facility] Blood BLOOD SPECIMEN / Unknown IVAD (Port) / Unknown 06/15/2024 6:09 AM DIGITAL PRODUCER 06/15/2024 6:18 AM DIGITAL PRODUCER us Rl Elias MD LAB - BLOOD ORDER SYD Final Result [facility] [address] [facility], [address] [place] [address] * (ABNORMAL) Basic metabolic panel (06/15/2024 6:09 AM DIGITAL PRODUCER) Sodium 136 135 - 145 mmol/L 06/15/2024 7:13 AM DIGITAL PRODUCER [facility] Potassium 4.4 3.4 - 5.3 mmol/L 06/15/2024 7:13 AM DIGITAL PRODUCER [facility] Chloride 104 98 - 107 mmol/L 06/15/2024 7:13 AM DIGITAL PRODUCER [facility] Carbon Dioxide (CO2) 21(L) 22 - 29 mmol/L 06/15/2024 7:13 AM DIGITAL PRODUCER [facility] Anion Gap 11 7 - 15 mmol/L 06/15/2024 7:13 AM DIGITAL PRODUCER [facility] Urea Nitrogen 10.1 6.0 - 20.0 mg/dL 06/15/2024 7:13 AM DIGITAL PRODUCER [facility] Creatinine 0.65 0.51 - 0.95 mg/dL 06/15/2024 7:13 AM DIGITAL PRODUCER [facility] GFR Estimate >90 >60 mL/min/1.7 3m2 06/15/2024 7:13 AM DIGITAL PRODUCER [facility] Comment:eGFR calculated us2020 CKD-EPI equation. Calcium 8.9 8.8 - 10.4 mg/dL 06/15/2024 7:13 AM DIGITAL PRODUCER [facility] Glucose 104(H) 70 - 99 mg/dL 06/15/2024 7:13 AM DIGITAL PRODUCER [facility] Blood BLOOD SPECIMEN / Unknown IVAD (Port) / Unknown 06/15/2024 6:09 AM DIGITAL PRODUCER 06/15/2024 6:16 AM DIGITAL PRODUCER Rl Elias MD LAB - BLOOD ORDER SYD Final Result [facility] [address] [facility], [address] [place], [place] [id number] * XR Chest Port 1 View (06/14/2024 8:46 AM DIGITAL PRODUCER) Anatomical Region Laterality Modality Chest Digital Radiogra phy Impressions 06/14/2024 8:59 AM DIGITAL PRODUCER Impression: Further increase in ill-defined opacity projecting over the right lower lung concerning for pneumonia. MARIO ALBERTO BLACKWOOD MD Narrative 06/14/2024 8:59 AM DIGITAL PRODUCER Exam: XR CHEST PORT 1 VIEW, 06/14/2024 [...] concerning for pneumonia. MARIO ALBERTO BLACKWOOD MD Rl Elias MD IMG DIAGNOSTIC IM AGING ORDERABLES Final Result * (ABNORMAL) CBC with platelets (06/14/2024 7:08 AM DIGITAL PRODUCER) WBC Count 13.4(H) 4.0 - 11.0 10e3/uL 06/14/2024 7:46 AM DIGITAL PRODUCER [facility] RBC Count 2.30(L) 3.80 - 5.20 10e6/uL 06/14/2024 7:46 AM DIGITAL PRODUCER [facility] Hemoglobin 6.9(LL) 11.7 - 15.7 g/dL 06/14/2024 7:46 AM DIGITAL PRODUCER [facility] Hematocrit 21.6(L) 35.0 - 47.0 % 06/14/2024 7:46 AM DIGITAL PRODUCER [facility] MCV 94 78 - 100 fL 06/14/2024 7:46 AM DIGITAL PRODUCER [facility] MCH 30.0 26.5 - 33.0 pg 06/14/2024 7:46 AM DIGITAL PRODUCER [facility] MCHC 31.9 31.5 - 36.5 g/dL 06/14/2024 7:46 AM DIGITAL PRODUCER [facility] RDW 19.4(H) 10.0 - 15.0 % 06/14/2024 7:46 AM DIGITAL PRODUCER [facility] Platelet Count 501(H) 150 - 450 10e3/uL 06/14/2024 7:46 AM DIGITAL PRODUCER [facility] Blood BLOOD SPECIMEN / Unknown Venipuncture / Unknown 06/14/2024 7:08 AM DIGITAL PRODUCER 06/14/2024 7:22 AM DIGITAL PRODUCER Rl Elias MD LAB - BLOOD ORDER SYD Final Result [facility] [address] [facility], [address] [phone] * (ABNORMAL) Basic metabolic panel (06/14/2024 7:08 AM DIGITAL PRODUCER) Pathologist [facility] Sodium 136 135 - 145 mmol/L 06/14/2024 7:57 AM DIGITAL PRODUCER [facility] Potassium 4.2 3.4 - 5.3 mmol/L 06/14/2024 7:57 AM DIGITAL PRODUCER [facility] Chloride 107 98 - 107 mmol/L 06/14/2024 7:57 AM DIGITAL PRODUCER [facility] Carbon Dioxide (CO2) 20(L) 22 - 29 mmol/L 06/14/2024 7:57 AM DIGITAL PRODUCER [facility] Anion Gap 9 7 - 15 mmol/L 06/14/2024 7:57 AM DIGITAL PRODUCER [facility] LABORATORY Urea Nitrogen 6.5 6.0 - 20.0 mg/dL 06/14/2024 7:57 AM DIGITAL PRODUCER [facility] Creatinine 0.71 0.51 - 0.95 mg/dL 06/14/2024 7:57 AM DIGITAL PRODUCER [facility] GFR Estimate >90 >60 mL/min/1.7 3m2 06/14/2024 7:57 AM DIGITAL PRODUCER [facility] Comment:eGFR calculated us2020 CKD-EPI equation. Calcium 8.9 8.8 - 10.4 mg/dL 06/14/2024 7:57 AM DIGITAL PRODUCER [facility] Glucose 92 70 - 99 mg/dL 06/14/2024 7:57 AM DIGITAL PRODUCER [facility] Blood BLOOD SPECIMEN / Unknown Venipuncture / Unknown 06/14/2024 7:08 AM DIGITAL PRODUCER 06/14/2024 7:22 AM DIGITAL PRODUCER Rl Elias MD LAB - BLOOD ORDER SYD Final Result [facility] [address] [facility], [address] [phone] * (ABNORMAL) CBC with platelets (06/13/2024 6:32 PM DIGITAL PRODUCER) WBC Count 15.3(H) 4.0 - 11.0 10e3/uL 06/13/2024 7:10 PM DIGITAL PRODUCER [facility] RBC Count 2.21(L) 3.80 - 5.20 10e6/uL 06/13/2024 7:10 PM DIGITAL PRODUCER [facility] Hemoglobin 6.8(LL) 11.7 - 15.7 g/dL 06/13/2024 7:10 PM DIGITAL PRODUCER [facility] Hematocrit 20.8(L) 35.0 - 47.0 % 06/13/2024 7:10 PM DIGITAL PRODUCER [facility] MCV 94 78 - 100 fL 06/13/2024 7:10 PM DIGITAL PRODUCER [facility] MCH 30.8 26.5 - 33.0 pg 06/13/2024 7:10 PM DIGITAL PRODUCER [facility] MCHC 32.7 31.5 - 36.5 g/dL 06/13/2024 7:10 PM DIGITAL PRODUCER [facility] RDW 19.6(H) 10.0 - 15.0 % 06/13/2024 7:10 PM DIGITAL PRODUCER [facility] Platelet Count 495(H) 150 - 450 10e3/uL 06/13/2024 7:10 PM DIGITAL PRODUCER [facility] Blood CENTRAL VENOUS CATHETER / Unknown VAD(CVC, PICC) / Unknown 06/13/2024 6:32 PM DIGITAL PRODUCER 06/13/2024 6:52 PM DIGITAL PRODUCER Rl Elias MD LAB - BLOOD ORDER SYD Final Result [facility] [address] [facility], [address] [place] [phone] * (ABNORMAL) RBC and Platelet Morphology (06/13/2024 6:00 AM DIGITAL PRODUCER) RBC Morphology Confirmed RBC Indices 06/13/2024 3:45 PM DIGITAL PRODUCER [facility] Platelet Assessment Automated Count Confirmed. Platelet morphology is normal. Automated Count Confirmed. Platelet morphology is normal. 06/13/2024 3:45 PM DIGITAL PRODUCER [facility] Polychromasia Moderate(A) None Seen 06/13/2024 3:45 PM DIGITAL PRODUCER [facility] Sickle Cells Moderate(A) None Seen 06/13/2024 3:45 PM DIGITAL PRODUCER [facility] Target Cells Moderate(A) None Seen 06/13/2024 3:45 PM DIGITAL PRODUCER [facility] Pathologist Review Comments (Blood) Sickle shaped red blood cells are present compatible with patient's history of sickle cell disease. Ziegler Foxfire bodies are present compatible with hyposplenic blood picture. There is increased lymphocytes; however, the morphology of lymphocytes is polymorphous. Follow up CBC, diff for resolution of this findings is recommended. Danny Martinez MD on 06/13/2024 at 3:44 PM 06/13/2024 3:45 PM DIGITAL PRODUCER [facility] Comment:This is an appended report. These results have been appended to a previously final verified report. Blood VENOUS LINE / Unknown IVAD (Port) / Unknown 06/13/2024 6:00 AM DIGITAL PRODUCER 06/13/2024 6:16 AM DIGITAL PRODUCER us Laquita Kelley MD LAB - BLOOD ORDERABLES Edited R esult - Final SPECIAL[facility] LAB[facility] [address] [facility], [address] [phone], [facility] [address] [facility], [address] [phone], [facility] * (ABNORMAL) CBC with platelets and differential (06/13/2024 6:00 AM DIGITAL PRODUCER) WBC Count 17.0(H) 4.0 - 11.0 10e3/uL 06/13/2024 9:51 AM DIGITAL PRODUCER [facility] RBC Count 2.11(L) 3.80 - 5.20 10e6/uL 06/13/2024 9:51 AM DIGITAL PRODUCER [facility] Hemoglobin 6.4(LL) 11.7 - 15.7 g/dL 06/13/2024 9:51 AM DIGITAL PRODUCER [facility] Hematocrit 20.3(L) 35.0 - 47.0 % 06/13/2024 9:51 AM DIGITAL PRODUCER [facility] MCV 96 78 - 100 fL 06/13/2024 9:51 AM DIGITAL PRODUCER [facility] MCH 30.3 26.5 - 33.0 pg 06/13/2024 9:51 AM DIGITAL PRODUCER [facility] MCHC 31.5 31.5 - 36.5 g/dL 06/13/2024 9:51 AM DIGITAL PRODUCER [facility] RDW 19.8(H) 10.0 - 15.0 % 06/13/2024 9:51 AM DIGITAL PRODUCER [facility] Platelet Count 458(H) 150 - 450 10e3/uL 06/13/2024 9:51 AM DIGITAL PRODUCER [facility] % Neutrophils 40 % 06/13/2024 9:51 AM DIGITAL PRODUCER [facility] % Lymphocytes 42 % 06/13/2024 9:51 AM DIGITAL PRODUCER [facility] % Monocytes 13 % 06/13/2024 9:51 AM DIGITAL PRODUCER [facility] % Eosinophils 3 % 06/13/2024 9:51 AM DIGITAL PRODUCER [facility] % Basophils 1 % 06/13/2024 9:51 AM DIGITAL PRODUCER [facility] % Immature Granulocytes 1 % 06/13/2024 9:51 AM DIGITAL PRODUCER [facility] NRBCs per 100 WBC 0 <1 /100 025 9:51 AM DIGITAL PRODUCER [facility] Absolute Neutrophils 6.7 1.6 - 8.3 10e3/uL 06/13/2024 9:51 AM DIGITAL PRODUCER [facility] Absolute Lymphocytes 7.2(H) 0.8 - 5.3 10e3/uL 06/13/2024 9:51 AM DIGITAL PRODUCER [facility] Absolute Monocytes 2.2(H) 0.0 - 1.3 10e3/uL 06/13/2024 9:51 AM DIGITAL PRODUCER [facility] Absolute Eosinophils 0.5 0.0 - 0.7 10e3/uL 06/13/2024 9:51 AM DIGITAL PRODUCER [facility] Absolute Basophils 0.2 0.0 - 0.2 10e3/uL 06/13/2024 9:51 AM DIGITAL PRODUCER [facility] Absolute Immature Granulocytes 0.1 <=0.4 10e3/uL 06/13/2024 9:51 AM DIGITAL PRODUCER [facility] Absolute NRBCs 0.1 10e3/uL 06/13/2024 9:51 AM DIGITAL PRODUCER [facility] Blood VENOUS LINE / Unknown IVAD (Port) / Unknown 06/13/2024 6:00 AM DIGITAL PRODUCER 06/13/2024 6:16 AM DIGITAL PRODUCER Narrative SPECIALTY LABS - 06/13/2024 9:51 AM DIGITAL PRODUCER Sent for review by Pathologist. See Pathologist comments after review. Tech Comments Patient Diagnosis: Sickle Cell crisis Reason for Sending: absolute lymphocyte > 5.4 Laquita Kelley MD LAB - BLOOD ORDERABLES Final Re sult SPECIAL[facility] LABS Specialty Lab [address] [facility], [address] [phone] [address] [facility], [address] [phone] * (ABNORMAL) Basic metabolic panel (06/13/2024 5:59 AM DIGITAL PRODUCER) Sodium 135 135 - 145 mmol/L 06/13/2024 6:45 AM DIGITAL PRODUCER [facility] Potassium 4.3 3.4 - 5.3 mmol/L 06/13/2024 6:45 AM DIGITAL PRODUCER [facility] Chloride 105 98 - 107 mmol/L 06/13/2024 6:45 AM DIGITAL PRODUCER [facility] Carbon Dioxide (CO2) 21(L) 22 - 29 mmol/L 06/13/2024 6:45 AM DIGITAL PRODUCER [facility] Anion Gap 9 7 - 15 mmol/L 06/13/2024 6:45 AM DIGITAL PRODUCER [facility] Urea Nitrogen 4.9(L) 6.0 - 20.0 mg/dL 06/13/2024 6:45 AM DIGITAL PRODUCER [facility] Creatinine 0.70 0.51 - 0.95 mg/dL 06/13/2024 6:45 AM DIGITAL PRODUCER [facility] GFR Estimate >90 >60 mL/min/1.7 3m2 06/13/2024 6:45 AM DIGITAL PRODUCER [facility] Comment:eGFR calculated usin 2020 CKD-EPI equation. Calcium 8.7(L) 8.8 - 10.4 mg/dL 06/13/2024 6:45 AM DIGITAL PRODUCER [facility] Glucose 100(H) 70 - 99 mg/dL 06/13/2024 6:45 AM DIGITAL PRODUCER [facility] Blood VENOUS LINE / Unknown IVAD (Port) / Unknown 06/13/2024 5:59 AM DIGITAL PRODUCER 06/13/2024 6:16 AM DIGITAL PRODUCER Laquita Kelley MD LAB - BLOOD ORDERABLES Final Re sult [facility] [address] [facility] [address] [facility], [address] [place] [phone] * Respiratory Panel PCR (06/12/2024 9:34 PM DIGITAL PRODUCER) Adenovirus Not Detected Not Detected 06/12/2024 11:53 PM DIGITAL PRODUCER [facility] Coronavirus Not Detected Not Detected 06/12/2024 11:53 PM DIGITAL PRODUCER [facility] Comment:This test detects Co ronavirus 229E, HKU1, NL63 and OC43 but does not distinguish between them. It does not detect MERS ( Respiratory Syndrome), SARS (Severe Acute Respiratory Syndrome) or 2019-nCoV (Novel 2018) Coronavirus. Human Metapneumovirus Not Detected Not Detected 06/12/2024 11:53 PM DIGITAL PRODUCER [facility] Human Rhin/Enterovirus Not Detected Not Detected 06/12/2024 11:53 PM DIGITAL PRODUCER [facility] Influenza A Not Detected Not Detected 06/12/2024 11:53 PM DIGITAL PRODUCER [facility] Influenza A, H1 Not Detected Not Detected 06/12/2024 11:53 PM DIGITAL PRODUCER [facility] Influenza A 2009 H1N1 Not Detected Not Detected 06/12/2024 11:53 PM DIGITAL PRODUCER [facility] Influenza A, H3 Not Detected Not Detected 06/12/2024 11:53 PM DIGITAL PRODUCER [facility] Influenza B Not Detected Not Detected 06/12/2024 11:53 PM DIGITAL PRODUCER [facility] Parainfluenza Virus 1 Not Detected Not Detected 06/12/2024 11:53 PM DIGITAL PRODUCER [facility] Parainfluenza Virus 2 Not Detected Not Detected 06/12/2024 11:53 PM DIGITAL PRODUCER [facility] Parainfluenza Virus 3 Not Detected Not Detected 06/12/2024 11:53 PM DIGITAL PRODUCER [facility] Parainfluenza Virus 4 Not Detected Not Detected 06/12/2024 11:53 PM DIGITAL PRODUCER [facility] Respiratory Syncytial Virus A Not Detected Not Detected 06/12/2024 11:53 PM DIGITAL PRODUCER [facility] Respiratory Syncytial Virus B Not Detected Not Detected 06/12/2024 11:53 PM DIGITAL PRODUCER [facility] Chlamydia Pneumoniae Not Detected Not Detected 06/12/2024 11:53 PM DIGITAL PRODUCER [facility] Mycoplasma Pneumoniae Not Detected Not Detected 06/12/2024 11:53 PM DIGITAL PRODUCER [facility] Swab NASOPHARYNGEAL STRUCTURE / Unknown Non-blood Collection / Unknown 06/12/2024 9:34 PM DIGITAL PRODUCER 06/12/2024 9:47 PM DIGITAL PRODUCER Narrative [facility] - 06/12/2024 11:53 PM DIGITAL PRODUCER The ePlex Respiratory Panel is a qualitative nucleic acid, multiplex, in vitro diagnostic test for the simultaneous detection and identification of multiple respiratory viral and bacterial nucleic acids in nasopharyngeal swabs collected in viral transport media from individual exhibiting signs and symptoms of respiratory infection. The assay has received FDA approval for the testing of nasopharyngeal (AIRCRAFT LINE [employer]SEMBLER) swabs only. This test is used for clinical purposes and should not be regarded as investigational or for research. This laboratory is certified under the Clinical Laboratory Improvement Amendments of 1988 (CLIA-88) as qualified to perform high complexity clinical laboratory testing. us Abdelrahman Goddard MD LAB - MICRO GENERAL ORDERABLES Final Result [facility]AT[facility] Inf. Diseases Diag. Lab [address] [facility], [address] [place] [address] * Blood Culture Peripheral Blood (06/12/2024 8:46 PM DIGITAL PRODUCER) Culture No Growth 06/17/2024 9:31 PM DIGITAL PRODUCER [facility] Blood BLOOD SPECIMEN / Unknown Venipuncture / Unknown 06/12/2024 8:46 PM DIGITAL PRODUCER 06/12/2024 8:53 PM DIGITAL PRODUCER Narrative [facility] - 06/17/2024 9:31 PM DIGITAL PRODUCER Only an Aerobic Blood Culture Bottle was collected, interpret results with caution. us Abdelrahman Goddard MD LAB - MICRO GENERAL ORDERABLES Final Result [facility] Inf. Diseases Diag. Lab [address] [facility], Room [place] [id number] * Blood Culture Peripheral Blood (06/12/2024 8:46 PM DIGITAL PRODUCER) Culture No Growth 06/17/2024 9:31 PM DIGITAL PRODUCER [facility] Blood BLOOD SPECIMEN / Unknown Venipuncture / Unknown 06/12/2024 8:46 PM DIGITAL PRODUCER 06/12/2024 8:53 PM DIGITAL PRODUCER us Abdelrahman Goddard MD LAB - MICRO GENERAL ORDERABLES Final Result [facility] Inf. Diseases Diag. Lab [address] [facility], [address] * XR Chest 2 Views (06/12/2024 7:38 PM DIGITAL PRODUCER) Anatomical Region Laterality Modality Chest Computed Radiogr aphy 06/12/2024 7:38 PM DIGITAL PRODUCER Impressions 06/12/2024 7:42 PM DIGITAL PRODUCER IMPRESSION: A few faint peripheral reticulonodular opacities in the mid and lower lungs again seen. Lungs otherwise clear. No pleural effusion. No pneumothorax. Borderline cardiac enlargement unchanged. Port anterior right chest wall with right IJ central venous catheter tip low SVC. Port anterior left chest wall with left IJ central venous catheter tip low SVC. Narrative 06/12/2024 7:42 PM DIGITAL PRODUCER EXAM: XR CHEST 2 VIEWS LOCATION: [facility] [...] Adult Type and Screen (06/12/2024 7:17 PM DIGITAL PRODUCER) Pathologist [facility] ABO/RH(D) A POS 06/13/2024 9:17 AM DIGITAL PRODUCER [facility] Antibody Screen Negative Negative 06/13/2024 9:17 AM DIGITAL PRODUCER [facility] Comment:Current antibody scr een is negative. Patient has a history of antibody(ies). A delay in compatible red blood cells may occur. SPECIMEN EXPIRATION DATE [id number] 06/13/2024 9:17 AM DIGITAL PRODUCER [facility] Blood BLOOD SPECIMEN / Unknown Venipuncture / Unknown 06/12/2024 7:17 PM DIGITAL PRODUCER 06/12/2024 7:32 PM DIGITAL PRODUCER Carmen Aviles PA-C LAB - BLOOD BANK TEST ORDER Final Result U BLOOD BANK [address] [place] [phone] * (ABNORMAL) RBC and Platelet Morphology (06/12/2024 7:17 PM DIGITAL PRODUCER) Pathologist [facility] RBC Morphology Confirmed RBC Indices 06/12/2024 8:57 PM DIGITAL PRODUCER [facility] Platelet Assessment Automated Count Confirmed. Platelet morphology is normal. Automated Count Confirmed. Platelet morphology is normal. 06/12/2024 8:57 PM DIGITAL PRODUCER [facility] Polychromasia Slight(A) None Seen 06/12/2024 8:57 PM DIGITAL PRODUCER [facility] Sickle Cells Moderate(A) None Seen 06/12/2024 8:57 PM DIGITAL PRODUCER [facility] Target Cells Moderate(A) None Seen 06/12/2024 8:57 PM DIGITAL PRODUCER [facility] Blood BLOOD SPECIMEN / Unknown Venipuncture / Unknown 06/12/2024 7:17 PM DIGITAL PRODUCER 06/12/2024 7:32 PM DIGITAL PRODUCER us Abdelrahman Goddard MD LAB - BLOOD ORDERABLES Final R esult [facility] [address] [facility], [address] [phone] * (ABNORMAL) CBC with platelets and differential (06/12/2024 7:17 PM DIGITAL PRODUCER) WBC Count 12.5(H) 4.0 - 11.0 10e3/uL 06/12/2024 7:54 PM DIGITAL PRODUCER [facility] RBC Count 2.44(L) 3.80 - 5.20 10e6/uL 06/12/2024 7:54 PM DIGITAL PRODUCER [facility] Hemoglobin 7.5(L) 11.7 - 15.7 g/dL 06/12/2024 7:54 PM DIGITAL PRODUCER [facility] Hematocrit 22.2(L) 35.0 - 47.0 % 06/12/2024 7:54 PM DIGITAL PRODUCER [facility] MCV 91 78 - 100 fL 06/12/2024 7:54 PM DIGITAL PRODUCER [facility] MCH 30.7 26.5 - 33.0 pg 06/12/2024 7:54 PM DIGITAL PRODUCER [facility] MCHC 33.8 31.5 - 36.5 g/dL 06/12/2024 7:54 PM DIGITAL PRODUCER [facility] RDW 19.5(H) 10.0 - 15.0 % 06/12/2024 7:54 PM DIGITAL PRODUCER [facility] Platelet Count 542(H) 150 - 450 10e3/uL 06/12/2024 7:54 PM DIGITAL PRODUCER [facility] % Neutrophils 57 % 06/12/2024 7:54 PM DIGITAL PRODUCER [facility] % Lymphocytes 24 % 06/12/2024 7:54 PM DIGITAL PRODUCER [facility] % Monocytes 16 % 06/12/2024 7:54 PM DIGITAL PRODUCER [facility] % Eosinophils 1 % 06/12/2024 7:54 PM DIGITAL PRODUCER [facility] % Basophils 1 % 06/12/2024 7:54 PM DIGITAL PRODUCER [facility] % Immature Granulocytes 0 % 06/12/2024 7:54 PM DIGITAL PRODUCER [facility] NRBCs per 100 WBC 1(H) <1 /100 025 7:54 PM DIGITAL PRODUCER [facility] Absolute Neutrophils 7.1 1.6 - 8.3 10e3/uL 06/12/2024 7:54 PM DIGITAL PRODUCER [facility] Absolute Lymphocytes 3.0 0.8 - 5.3 10e3/uL 06/12/2024 7:54 PM DIGITAL PRODUCER [facility] Absolute Monocytes 2.0(H) 0.0 - 1.3 10e3/uL 06/12/2024 7:54 PM DIGITAL PRODUCER [facility] Absolute Eosinophils 0.2 0.0 - 0.7 10e3/uL 06/12/2024 7:54 PM DIGITAL PRODUCER [facility] Absolute Basophils 0.2 0.0 - 0.2 10e3/uL 06/12/2024 7:54 PM DIGITAL PRODUCER [facility] Absolute Immature Granulocytes 0.1 <=0.4 10e3/uL 06/12/2024 7:54 PM DIGITAL PRODUCER [facility] Absolute NRBCs 0.1 10e3/uL 06/12/2024 7:54 PM DIGITAL PRODUCER [facility] Blood BLOOD SPECIMEN / Unknown Venipuncture / Unknown 06/12/2024 7:17 PM DIGITAL PRODUCER 06/12/2024 7:32 PM DIGITAL PRODUCER us Abdelrahman Goddard MD LAB - BLOOD ORDERABLES Final R esult [facility] [address] [facility], [address] [phone] * (ABNORMAL) Blood gas venous (06/12/2024 7:17 PM DIGITAL PRODUCER) pH Venous 7.38 7.32 - 7.43 06/12/2024 7:40 PM DIGITAL PRODUCER [facility] pCO2 Venous 42 40 - 50 mm Hg 06/12/2024 7:40 PM DIGITAL PRODUCER [facility] pO2 Venous 35 25 - 47 mm Hg 06/12/2024 7:40 PM DIGITAL PRODUCER [facility] Bicarbonate Venous 24 21 - 28 mmol/L 06/12/2024 7:40 PM DIGITAL PRODUCER [facility] Base Excess/Deficit Venous -0.9 -3.0 - 3.0 mmol/L 06/12/2024 7:40 PM DIGITAL PRODUCER [facility] FIO2 21 JARTE 06/12/2024 7:40 PM DIGITAL PRODUCER [facility] Oxyhemoglobin Venous 61(L) 70 - 75 % 06/12/2024 7:40 PM DIGITAL PRODUCER [facility] O2 Sat, Venous 63.9(L) 70.0 - 75.0 % 06/12/2024 7:40 PM DIGITAL PRODUCER [facility] Blood, venous VENOUS LINE / Unknown Venipuncture / Unknown 06/12/2024 7:17 PM DIGITAL PRODUCER 06/12/2024 7:30 PM DIGITAL PRODUCER Narrative [facility] - 06/12/2024 7:40 PM DIGITAL PRODUCER In healthy individuals, oxyhemoglobin (O2Hb) and oxygen saturation (SO2) are approximately equal. In the presence of dyshemoglobins, oxyhemoglobin can be considerably lower than oxygen saturation. us Abdelrahman Goddard MD LAB - BLOOD ORDERABLES Final R esult [facility] LAB[facility] Core Lab [address] [facility], [address] [place] [address] * Troponin T, High Sensitivity (06/12/2024 7:17 PM DIGITAL PRODUCER) [facility] Troponin T, High Sensitivity <6 <=14 ng/L 06/12/2024 8:03 PM DIGITAL PRODUCER [facility] Comment: Either a High Sensitivity [...] Unknown Venipuncture / Unknown 06/12/2024 7:17 PM DIGITAL PRODUCER 06/12/2024 7:32 PM DIGITAL PRODUCER us Abdelrahman Goddard MD LAB - BLOOD ORDERABLES Final R esult [facility] [address] [facility], [address] [address], [facility] * (ABNORMAL) Basic metabolic panel (06/12/2024 7:17 PM DIGITAL PRODUCER) Pathologist [facility] Sodium 139 135 - 145 mmol/L 06/12/2024 8:03 PM DIGITAL PRODUCER [facility] Potassium 4.3 3.4 - 5.3 mmol/L 06/12/2024 8:03 PM DIGITAL PRODUCER [facility] Chloride 109(H) 98 - 107 mmol/L 06/12/2024 8:03 PM DIGITAL PRODUCER [facility] Carbon Dioxide (CO2) 21(L) 22 - 29 mmol/L 06/12/2024 8:03 PM DIGITAL PRODUCER [facility] Anion Gap 9 7 - 15 mmol/L 06/12/2024 8:03 PM DIGITAL PRODUCER [facility] Urea Nitrogen 5.9(L) 6.0 - 20.0 mg/dL 06/12/2024 8:03 PM DIGITAL PRODUCER [facility] Creatinine 0.61 0.51 - 0.95 mg/dL 06/12/2024 8:03 PM DIGITAL PRODUCER [facility] GFR Estimate >90 >60 mL/min/1.7 3m2 06/12/2024 8:03 PM DIGITAL PRODUCER [facility] Comment:eGFR calculated 2020 CKD-EPI equation. Calcium 9.4 8.8 - 10.4 mg/dL 06/12/2024 8:03 PM DIGITAL PRODUCER [facility] Glucose 97 70 - 99 mg/dL 06/12/2024 8:03 PM DIGITAL PRODUCER [facility] Blood BLOOD SPECIMEN / Unknown Venipuncture / Unknown 06/12/2024 7:17 PM DIGITAL PRODUCER 06/12/2024 7:32 PM DIGITAL PRODUCER us Abdelrahman Goddard MD LAB - BLOOD ORDERABLES Final R esult [facility] [address] [facility], [address] * (ABNORMAL) INR (06/12/2024 7:17 PM DIGITAL PRODUCER) INR 1.37(H) 0.85 - 1.15 06/12/2024 7:54 PM DIGITAL PRODUCER U LABORATORY Blood BLOOD SPECIMEN / Unknown Venipuncture / Unknown 06/12/2024 7:17 PM DIGITAL PRODUCER 06/12/2024 7:32 PM DIGITAL PRODUCER Abdelrahman Goddard MD LAB - BLOOD ORDERABLES Final R esult LABORATORY [facility] [address] [facility], [address] * EKG 12-lead, tracing only (06/12/2024 6:37 PM DIGITAL PRODUCER) Systolic Blood Pressure mmHg RADIOLOGY RESULTS Diastolic Blood Pressure mmHg RADIOLOGY RESULTS Ventricular Rate 94 BPM RAD IOLOGY RESULTS Atrial Rate 94 BPM RADIOLOG Y RESULTS VT Interval 146 ms RADIOLOG Y RESULTS QRS Duration 84 ms RADIOLO GY RESULTS QT 346 ms RADIOLOGY RESULTS QTc 432 ms RADIOLOGY RESULTS P Hoven 31 degrees RADIOLOGY RESULTS R AXIS 85 degrees RADIOLOGY RESULTS T Hoven 36 degrees RADIOLOGY RESULTS Interpretation ECG Sinus rhythm Normal ECG Unconfirmed report - interpretation of this ECG is computer generated - see medical record for final interpretation Confirmed by - EMERGENCY ROOM, PHYSICIAN ([id number]), art editor CLAUDIO ASTORGA ([id number]) on 06/13/2024 7:17:59 AM RADIOLOGY RESULTS 06/12/2024 6:37 PM DIGITAL PRODUCER 06/13/2024 7:17 AM DIGITAL PRODUCER Alex Morton MD ECG ORDERABLES Edited Resul [...] within 2 weeks. $Given 06/15/2024 8:05 AM DIGITAL PRODUCER 2 puffs $Given 06/14/2024 7:59 PM DIGITAL PRODUCER 2 puffs $Given 06/14/2024 4:39 PM DIGITAL PRODUCER 2 puffs albuterol (PROVENTIL HFA/VENTOLIN HFA) inhaler [...] Indications: SepsisIndications:Sepsis $New Bag 06/12/2024 9:31 PM DIGITAL PRODUCER 500 mg 250 mL /hr azithromycin (ZITHROMAX) 500 mg in sodium chloride 0.9 % 250 mL intermittent infusion Routine, 500 mg, Intravenous, EVERY 24 HOURS, First dose on Wed06/13/24 at 2100, Indications: Acute chest syndromeIndications:Acute chest syndrome $New Bag 06/13/2024 10:04 PM DIGITAL PRODUCER 500 mg azithromycin (ZITHROMAX) tablet 500 mg Routine, 500 mg, Oral, DAILY, First dose on Wed06/14/24 at 1200, Indications: Community Acquired PneumoniaIndications:Community Acquired Pneumonia $Given 06/15/2024 8:05 AM DIGITAL PRODUCER 500 mg $Given 06/14/2024 12:38 PM D[employer]ITAL [employer]ER 500 mg cefTRIAXone (ROCEPHIN) 1 g vial to attach to NS 100 mL bag for ADULTS or NS 50 mL bag for PEDS STAT, 1 g, Intravenous, ONCE, On Wed06/12/24 at 2005, For 1 dose, Lactated Ringer's solution is not compatible with ceftriaxone for injection, Indications: SepsisIndications:Sepsis $New Bag 06/12/2024 8:39 PM D[employer]ITAL [employer]ER 1 g cefTRIAXone (ROCEPHIN) 2 g vial to attach to NS 100 ml bag for ADULTS or NS 50 ml bag for PEDS Routine, 2 g, Intravenous, EVERY 24 HOURS, First dose on Wed06/13/24 at 2000, Lactated Ringer's solution is not compatible with ceftriaxone for injection, Indications: Acute chest syndromeIndications:Acute chest syndrome $New Bag 06/14/2024 8:00 PM [employer] 2 g $New Bag 06/13/2024 8:16 PM D[employer] 2 g diclofenac (VOLTAREN) 1 % topical gel 2 g 2 g, Topical, 4 TIMES DAILY PRN, inflammatory pain, Starting on Wed06/14/24 at 0912, Apply to area of pain. Use supplied dosing card to measure dose. $Given 06/15/2024 8:10 AM D[employer]ER 2 g $Given 06/14/2024 12:38 PM [employer] 2 g diphenhydrAMINE (BENADRYL) capsule 25 mg 25 mg, Oral, EVERY 6 HOURS PRN, itching, Starting on Wed06/12/24 at 2139 $Given 06/14/2024 12:38 PM [employer]ER 25 mg $Given 06/13/2024 10:54 PM D[employer]ER 25 mg $Given 06/13/2024 12:12 PM [employer] 25 mg diphenhydrAMINE (BENADRYL) injection 25 mg 25 mg, Intravenous, EVERY 6 HOURS PRN, itching, Starting on Wed06/12/24 at 2139 $Given 06/13/2024 5:39 AM D[employer] 25 mg $Given 06/12/2024 10:41 PM [employer] 25 mg enoxaparin ANTICOAGULANT (LOVENOX) injection 40 mg 40 mg, Subcutaneous, EVERY 24 HOURS, First dose on Wed06/13/24 at 0800, Contact provider if platelet count drops by 50% or more after enoxaparin initiation OR if platelet count falls below 50 x 10e3/uL $Given 06/15/2024 7:59 AM D[employer]ER 40 mg $Given 06/14/2024 8:29 AM D[employer]ER 40 mg $Given 06/13/2024 7:49 AM D[employer] 40 mg FLUoxetine (PROzac) capsule 10 mg 10 mg, Oral, DAILY, First dose on Wed06/13/24 at 0800 $Given 06/14/2024 2:37 PM D[employer]ER 10 mg $Given 06/13/2024 7:50 AM D[employer] 10 mg folic acid (FOLVITE) tablet 1 mg 1 mg, Oral, DAILY, First dose on Wed06/13/24 at 0800 $Given 06/15/2024 8:05 AM DIGITAL PRODUCER 1 mg $Given 06/14/2024 8:29 AM DIGITAL PRODUCER 1 mg $Given 06/13/2024 7:49 AM DIGITAL PRODUCER 1 mg heparin lock flush 10 unit/mL [...] For 1 dose $Given 06/12/2024 7:24 PM DIGITAL PRODUCER 2 mg hydromorphone (DILAUDID) injection 2 mg 2 mg, Intravenous, ONCE, On Wed06/12/24 at 2010, For 1 dose $Given 06/12/2024 8:14 PM DIGITAL PRODUCER 2 mg hydromorphone (DILAUDID) injection 2 mg 2 mg, Intravenous, EVERY 3 HOURS PRN, moderate pain, IF patient cannot take oral opioid OR IF pain not managed with non-pharmacological, non-opioid, or oral opioid interventions if ordered, Starting on Wed06/12/24 at 2237, May use concomitant with non-opioid analgesics. $Given 06/12/2024 11:31 PM DIGITAL PRODUCER 2 mg hydromorphone (DILAUDID) injection 2 mg 2 mg, Intravenous, ONCE, On Wed06/12/24 at 2135, For 1 dose $Given 06/12/2024 9:46 PM DIGITAL PRODUCER 2 mg hydromorphone (DILAUDID) injection 2 mg 2 mg, Intravenous, EVERY 2 HOURS PRN, moderate pain, IF patient cannot take oral opioid OR IF pain not managed with non-pharmacological, non-opioid, or oral opioid interventions if ordered, Starting on Wed06/13/24 at 0132, May use concomitant with non-opioid analgesics. $Given 06/14/2024 12:38 PM DIGITAL PRODUCER 2 mg $Given 06/14/2024 10:31 AM DIGITAL PRODUCER 2 mg $Given 06/14/2024 8:29 AM DIGITAL PRODUCER 2 mg hydromorphone (DILAUDID) injection 2 mg 2 mg, Intravenous, EVERY 2 HOURS, First dose (after last modification) on Wed06/14/24 at 1415, May use concomitant with non-opioid analgesics. $Given 06/15/2024 7:58 AM DIGITAL PRODUCER 2 mg $Given 06/15/2024 6:01 AM DIGITAL PRODUCER 2 mg $Given 06/15/2024 4:11 AM DIGITAL PRODUCER 2 mg hydroxyurea (HYDREA) capsule 1,000 mg 1,000 mg, Oral, 2 TIMES DAILY, First dose on Wed06/12/24 at 2330, Indications: sickle cell anemia, Do not crush May require hepatic and/or renal dose or frequency adjustments. See reference link for guidelines.Indications:sickle cell anemia $Given 06/15/2024 8:06 AM DIGITAL PRODUCER 1,000 mg $Given 06/14/2024 8:00 PM DIGITAL PRODUCER 1,000 mg $Given 06/14/2024 8:30 AM DIGITAL PRODUCER 1,000 mg lactated ringers infusion at 75 mL/hr, Intravenous, CONTINUOUS, Starting on Wed06/12/24 at 2240, Until Wed06/13/24 at 0839 Rate/Dose Verify 06/13/2024 7:02 AM DIGITAL PRODUCER 75 mL/hr Rate/Dose Verify 06/13/2024 4:52 AM DIGITAL PRODUCER 75 mL/h r Rate/Dose Verify 06/13/2024 1:35 AM DIGITAL PRODUCER 75 mL/h r Lidocaine (LIDOCARE) 4 % [...] Wed06/12/24 at 2138 $Given 06/13/2024 1:28 AM DIGITAL PRODUCER 5 mg menthol (ICY HOT) 5 % [...] Liquid not required. $Given 06/14/2024 9:20 AM DIGITAL PRODUCER 4 mg ondansetron (ZOFRAN) injection 4 mg 4 mg, Intravenous, ONCE, Administer over 2-5 Minutes, On Wed06/12/24 at 1850, For 1 dose $Given 06/12/2024 7:24 PM DIGITAL PRODUCER 4 mg ondansetron (ZOFRAN) injection 4 mg 4 mg, Intravenous, EVERY 6 HOURS PRN, nausea/vomiting - 1st line, Administer over 2-5 Minutes, Starting on Wed06/12/24 at 2237, Give IF patient unable to tolerate oral medication. This is Step 1 of nausea and vomiting management. If nausea not resolved in 15 minutes, go to Step 2 prochlorperazine (COMPAZINE). $Given 06/15/2024 4:19 AM DIGITAL PRODUCER 4 mg senna-docusate (SENOKOT-S/PERICOLACE) 8.6-50 MG per [...] IV dormant line $Given 06/15/2024 6:32 AM DIGITAL PRODUCER 3 mLs $Given 06/13/2024 8:37 PM DIGITAL PRODUCER 3 mLs $Given 06/13/2024 2:12 PM DIGITAL PRODUCER 3 mLs sodium chloride (PF) 0.9% PF flush 3 mL 3 mL, Intracatheter, EVERY 1 MIN PRN, line flush, other, to ensure patency or to lock dormant line, Starting on Wed06/12/24 at 2237 $Given 06/14/2024 2:4 2 PM DIGITAL PRODUCER 3 mLs $Given 06/14/2024 8:30 AM DIGITAL PRODUCER 3 mLs $Given 06/14/2024 1:32 AM DIGITAL PRODUCER 3 mLs sodium chloride 0.9% BOLUS 1,000 mL Intravenous, 1,000 mL, ONCE, at 1,000 mL/hr, Administer over 1 Hours, On Wed06/12/24 at 1850, For 1 dose $New Bag 06/12/2024 7:22 PM DIGITAL PRODUCER 1,000 mLs 1000 mL/hr documented in this encounter Active and Recently Administered Medications Times are shown in DIGITAL PRODUCER. Scheduled Medication Order 06/13/2024 06/14/2024 06/15/2024 albuterol [...] Provider: Shauna Cuadra RN)0343 ($Given - Provider: Shauna Cuadra RN)0539 ($Given - Provider: Shauna Cuadra [...] Dean RN)0404 ($Given - Provider: Geovanna Dean RN)0654 ($Given - Provider: Geovanna Dean RN)0874 ($Given - Provider: Clay Avina, RN)1031 ($Given [...] 0920 ($Given - Provider: Clay Avina RN) 7136 (See Alternative - Provider: Kathy Levy, SOFIA) [...] (See Alternative - Provider: Clay Avina RN) 0359 ($Given - Provider: Kathy Levy RN) senna-docusate [...] Provider: Geovanna Dean RN)0830 ($Given - Provider: Caly Avina RN)1442 ($Given - Provider: Clay Avina [...] stools. documented in this encounter Care Teams Tenoner Operator Relationship Specialty Start Date End Date No Ref-Primary, Physician PCP - General 03/15/24 06/17/24 Mor Ramsey Medical Student 04/03/24 Case Samuel MD [address] [place] [address] [address] [place] [address] Assigned Pediatric Specialist Provider 05/18/24 Juhi Benson, RN Specialty Adjunct Mathematics Instructor Hematology & Oncology 05/29/24 documented as of this encounter
--- OUTSIDE RECORDS SUMMARY | 2024-06-22 01:06 | XMS_ITS | Encounter Summary ---
Author Organization [facility] Address [address] [place] [id number] Care Team Providers Care Senior Technical Recruiter Name Role Phone No Ref-Primary, Physician Primary Care Provider Mor Ramsey Unavailable Unavailable Case Samuel MD Unavailable [phone] Juhi Benson RN Unavailable Unavailable Reason for Visit * Reason Onset Date Comments Refill Request 06/15/2024 Encounter Details Date Type Department Care Team (Late st Contact Info) Description 06/15/[address] [place] [address] Case Samuel MD [address] [place] [address] [address] [place], [place] [address] Refill Request Social History Tobacco Use Types [...] on file Legal Sex Female 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 Samuel Any No Show Visits: none Next appointment: nothing scheduled Last fill date and by whom: Dr. Case Samuel on 06/07/24 INS[employer]ATION [facility]SE[facility] Reviewed: no access Send to provider: Dr. Samuel and SOFIA ReynagaCC. RWATER WELDER documented in this encounter Plan of Treatment Not on file documented as of this encounter Goals Goal Patient Goal Type Associated Problems Recent Progress Patient-Stated? Author Pain Management General On track( 025 12:40 PM UNDERWATER WELDER) Yes Juhi Benson, RN Note: Goal Statement: [...] crisis documented in this encounter Care Teams Senior Technical Recruiter Relationship Specialty Start Date End Date No Ref-Primary, Physician PCP - General 03/15/24 06/17/24 Mor Ramsey Medical Student 04/03/24 Case Samuel MD [address] [place] [address] [address] [place] [address] Assigned Pediatric Specialist Provider 05/18/24 Juhi Benson, RN Specialty Event Executive Hematology & Oncology 05/29/24 documented as of this encounter
--- OUTSIDE RECORDS SUMMARY | 2024-06-22 01:06 | XMS_ITS | Encounter Summary ---
Author Organization [facility] Address [address] [place] [address]. 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 Author Pain Management General On track( 025 12:40 PM ENGINEERING COORDINATOR) Yes Juhi Benson RN Note: Goal Statement: [...] on filedocumented in this encounter Care Teams Horticulture Superintendent Relationship Specialty Start Date End Date No Ref-Primary, Physician PCP - General 03/15/24 06/17/24 Mor Ramsey Medical Student 04/03/24 Case Samuel MD [address] [place] [address] [address] [place] [address] Assigned Pediatric Specialist Provider 05/18/24 Juhi Benson RN Specialty Remote Medical Coder Hematology & Oncology 05/29/24 documented as of this encounter
--- OUTSIDE RECORDS SUMMARY | 2024-06-22 01:06 | XMS_ITS | Encounter Summary ---
Author Organization [place] Address [address] [place] [address]. [place] [address] Care Team Providers Care Alarm Operator Name Role Phone No Ref-Primary, Physician Primary Care Provider Mor Ramsey Unavailable Unavailable Case Samuel MD Unavailable [phone] Juhi Benson RN Unavailable Unavailable Veronica Joseph MD Primary Care Provider [phone] Reason for Visit * Reason Comments Shortness of Breath Chest Pain Fever * Auth/Cert Specialty Diagnoses / Procedures Referred By Contac t Referred To Contact EMERGENCY MEDICINE Diagnoses Sickle cell pain crisis (H) [facility] Emergency Department [address] [place] [address] Phone: tel: Referral ID Status Reason Start Date Expiration Date Visits Re quested Visits Authorized [id number] 1 1 Encounter Details Date Type Department Care Team (Late st Contact Info) Description 06/16/2024 4:46 PM FLAVORING MACHINE OPERATOR - 06/20/2024 11:00 AM FLAVORING MACHINE OPERATOR Hospital Encounter [facility] 7C Med Surg [address] [place] [phone] Abimael Schofield MD [address] [place] [id number] Esdras Markham MD [address] [place] [address] German Hall MD [address] [place] [address] [address] [place] [address] Sickle cell pain crisis (H) [...] in an overnight assisted, or couch-surfing.) Yes 06/20/2024 Are you worried [...] on file Legal Sex Female 8:25 AM FLAVORING MACHINE OPERATOR Gender Identity Not on file Sexual Orientation Not on file documented as of this encounter Last Filed Vital Signs Vital Sign Reading Time Taken Comments Blood Pressure 106/62 06/20/2024 6:00 AM FLAVORING MACHINE OPERATOR Pulse 78 06/19/2024 2:25 PM FLAVORING MACHINE OPERATOR Temperature 36.7 C (98 F) 06/20/2024 6:00 AM FLAVORING MACHINE OPERATOR Respiratory Rate 18 06/20/2024 6:00 AM FLAVORING MACHINE OPERATOR Oxygen Saturation 99% 06/20/2024 6:00 AM FLAVORING MACHINE OPERATOR Inhaled Oxygen Concentration - - Weight - - Height - - Body Mass Index - - documented in this encounter Discharge Summaries * Rl Elias MD - 06/20/2024 8:39 AM CST [facility] Discharge Summary - Medicine & Pediatrics Date [...] her pain can be managed with her SCRAP IRON LOADER dilaudid 4mg q6h PRN. Hematology team is aware of discharge today and will arrange follow up. - continue SCRAP IRON LOADER dilaudid 4 mg Q6H PRN & further supportive cares as needed - follow up with Hematology as scheduled by their team - Continue SCRAP IRON LOADER hydroxyurea 1000mg BID - Continue SCRAP IRON LOADER folic acid 1mg daily - Continue topical diclofenac, lidocaine, icy hot PRN #ANGIE, resolved Likely prerenal with decreased PO intake. Cr 0.92 on admission, baseline ~0.61- 0.7. Improved with maintenance fluids. Encouraged adequate water intake at home. #Insomnia - melatonin 3 mg PRN #Anxiety - Continue SCRAP IRON LOADER fluoxetine Consultations This Hospital Stay HEMATOLOGY ADULT IP CONSULT CARE MANAGEMENT / SOCIAL WORK IP CONSULT Code Status Full Code Nivia Carvajal, MS3 Ricardo 1 Hospitalist Service [facility] 7C MED SURG [address] [facility] [id number] Physical Exam Vital Signs: Temp: 98 ??F [...] upon discharge: activity as tolerated Follow Up ([facility]) Follow up with primary care provider, Veronica Joseph, within 7 days for hospital follow- up. Thefollowing labs/tests are recommended: CBC. Appointments on [facility] and/or [facility] (with [facility] or [facility] provider or service). Call [phone] if you haven't heard regarding these appointments [...] inadequate. naloxone (NARCAN) 4 MG/0.1ML nasal spray Colton 1 spray (4 mg) into one nostril [...] Aydee Coughlin MD at 06/20/2024 11:52 AM FLAVORING MACHINE OPERATOR ORING MACHINE OPERATOR ORING MACHINE OPERATOR Associated attestation - Aydee Coughlin MD - 06/20/2024 11:52 AM FLAVORING MACHINE OPERATOR Physician Attestation I saw and evaluated this [...] 05/01/2024 naloxone (NARCAN) 4 MG/0.1ML nasal spray Colton 1 spray (4 mg) into one nostril [...] stated on the papers. Home supply :N/A. ORING MACHINE OPERATOR * Araceli Ramires MD - 06/20/2024 8:42 [...] Overall, I spent 35 minutes today (DOS) [id number] and/or coordinating care as documented above and specifically listed as below: --Reviewing documentation related to patient's history and this current admission available in [employer] --Review and clinical interpretation of pertinent laboratory test results from this admission --Discussion with the patient --Discussion with patient's primary team --Documentation in the electronic health record ORING MACHINE OPERATOR * Linda Lomax MD - 06/19/2024 7:43 [...] Service (when I saw the patient): 06/19/24 [facility] Progress Note - Medicine Service, [facility] TEAM [...] senna PRN for supportive measures - Continue SCRAP IRON LOADER hydroxyurea 1000mg BID - Continue SCRAP IRON LOADER folic acid 1mg daily - Monitoring CBC [...] melatonin 3 mg PRN #Anxiety - Continue SCRAP IRON LOADER fluoxetine - Benadryl PRN per Pain Plan [...] Nivia Carvajal, MS3 Medical Student Medicine Service, [address] Securely message with Order Mapper info) Text page via [facility] Paging/Directory See signed in provider for [...] previous visit (from the past 24 hours). ORING MACHINE OPERATOR * Tejal Curry RN - 06/18/2024 6:54 PM CST Shift: [id number] VS: Temp: 98.3 ??F (36.8 ??C) Temp [...] light appropriately Plan: Continue POC; manage pain ORING MACHINE OPERATOR * Linda Lomax MD - 06/18/2024 10:18 AM CST [facility] Progress Note - Medicine Service, [facility] TEAM [...] benadryl, senna PRN for supportive measures -Continue SCRAP IRON LOADER hydroxyurea 1000mg BID -Continue SCRAP IRON LOADER folic acid 1mg daily - monitoring CBC w/diff, LDH, reticulocyte count, and LDH daily - type & screened, consented - continue topical diclofenac, lidocaine, icy hot PRN - blood cultures, urine culture >> NGTD #ANGIE, resolved Likely prerenal with decreased PO intake. - mIVF with LR - CMP in AM #Insomnia - Continue SCRAP IRON LOADER fluoxetine - melatonin 3 mg PRN Diet: [...] Hall . Linda Lomax MD Medicine Service, [facility] TEAM [address] [place] [address] Securely message with [employer] (more info) Text page via [facility] Paging/Directory See signed in provider for [...] German Hall MD at 06/18/2024 3:16 PM FLAVORING MACHINE OPERATOR ORING MACHINE OPERATOR ORING MACHINE OPERATOR Associated attestation - German Hall MD - 06/18/2024 3:16 PM FLAVORING MACHINE OPERATOR Attestation: This patient has been seen and [...] Overall, I spent 35 minutes today (DOS) [id number] and/or coordinating care as documented above and specifically listed as below: --Reviewing documentation related to patient's history and this current admission available in [facility] --Review and clinical interpretation of pertinent laboratory test results from this admission --Discussion with the patient --Discussion with patient's primary team --Documentation in the electronic health record ORING MACHINE OPERATOR * Rl Elias MD - 06/17/2024 11:31 AM CST [facility] Progress Note - [facility] Date of Admission: 06/16/2024 Assessment [...] benadryl, senna PRN for supportive measures -Continue SCRAP IRON LOADER hydroxyurea 1000mg BID -Continue SCRAP IRON LOADER folic acid 1mg daily - monitoring CBC w/diff, LDH, reticulocyte count, and LDH daily - type & screened, consented - continue topical diclofenac, lidocaine, icy hot PRN - blood cultures, urine culture to evaluate any further source of infection #ANGIE Likely prerenal with decreased PO intake. - mIVF with LR - CMP in AM #Insomnia - Continue SCRAP IRON LOADER fluoxetine - melatonin 3 mg PRN Diet: [...] with the Attending Physician, Dr. Hall . LR ELIAS MD Medicine Service, [address] Securely message with [employer] (Klarna info) Text page via [facility] Paging/Directory See signed in provider for [...] Narrative EXAM: XR CHEST 2 VIEWS LOCATION: [facility] DATE: 06/16/2024 INDICATION: chest pain COMPARISON: 06/12/2024 Impression IMPRESSION: Left chest port catheter in stable position. Stable position of right central venous catheter. No airspace opacity, pleural effusion or pneumothorax. Cosigned by German Hall MD at 06/18/2024 3:07 PM FLAVORING MACHINE OPERATOR ORING MACHINE OPERATOR ORING MACHINE OPERATOR ORING MACHINE OPERATOR Associated attestation - German Hall MD - 06/18/2024 3:07 PM FLAVORING MACHINE OPERATOR Attestation: This patient has been seen and evaluated by me, German Hall MD. Discussed with the house staff team or resident(s) and agree with the findings and plan in this note. I have reviewed today's Medications, Vital Signs, and Labs. DOS 06/17 documented in this encounter H&P Notes * Laquita Kelley MD - 06/16/2024 7:59 PM CST [facility] History and Physical - Medicine Service, MARMATTHIAS [...] IV -mIVF with NS at 100ml/hr -Continue SCRAP IRON LOADER hydroxyurea 1000mg BID -Continue SCRAP IRON LOADER folic acid 1mg -PRN zofran for nausea -PRN benadryl for itching #ANGIE Likely prerenal with decreased PO intake. -mIVF with NS -Monitor #Insomnia -Continue SCRAP IRON LOADER fluoxetine Diet: Regular DVT Prophylaxis: Enoxaparin (Lovenox) SQ Santiago Catheter: Not present Fluids: NS at 100ml/hr Lines: PRESENT Cardiac Monitoring: None Code Status: Full Clinically Significant Risk Factors Present on Admission # Anemia: based on hgb <11 # Financial/Environmental Concerns: Disposition Plan Expected Discharge Date: 06/18/2024 The patient's care was discussed with the Attending Physician, Dr. Markham . 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, had port-a-cath in [facility] Functional asplenia Gallstones Hb-SS disease without [...] 4 MG/0.1ML nasal spray No No Sig: Colton 1 spray (4 mg) into one nostril [...] Esdras Markham MD at 06/17/2024 11:00 AM FLAVORING MACHINE OPERATOR ORING MACHINE OPERATOR ORING MACHINE OPERATOR Associated attestation - Esdras Markham MD - 06/17/2024 11:00 AM FLAVORING MACHINE OPERATOR Physician Attestation I saw this patient with [...] this encounter Consult Notes * CurtisAdelaide beltran, ADVICE CLERK - 06/18/2024 10:26 AM CSTAssociated Order(s): CARE [...] Communication Assessment Patient's communication style: spoken language (Albanian or Bilingual) Cognitive Cognitive/Neuro/Behavioral: WDL Living Environment: [...] Depression: Not at risk (04/11/2024) [facility] PHQ-2 PHQ-2 TOTAL SCORE: 1 Housing Stability: [...] Social Connections: Socially Integrated (03/28/2024) Received from [facility] Social Connections Do you often feel lonely or isolated from those around you?: 0 Health Literacy: Not on file Functional Status: Prior to admission patient needed assistance: Dependent ADLs:: Independent Dependent IADLs:: Independent Assesssment of Functional Status: Not at functional baseline Mental Health Status: Mental Health Status: No Current Concerns Chemical Dependency Status: Chemical Dependency Status: No Current Concerns Values/Beliefs: Spiritual, Cultural Beliefs, Caodaism Practices, Values that affect care: no Discussed [...] Care management signing off. LAURA Palacios 06/18/2024 Engine House Helper Social Work and Care Management Department SEARCHABLE in [employer] - search SOCIAL WORK [place] [phone]) Wednesday and Wednesday Units: 4A Vocera, 4C Vocera, & 4E Vocera Units: 5A 3904-8946 Vocera, 5A 5555-9098 Vocera , BMT SW 1 BMT SW 2, BMT SW 3 & BMT SW 4 5C OffService 5401 - 5445 5C Off Service [phone] Units: 6A Vocera & 6B Vocera Units: 6C Vocera Units: 7A Vocera & 7B Vocera Units: 7C Med Surg 7401 thru 7418 and 7C Med Surg 7502 thru 7521 Unit: [place] ED Vocera & [place] Obs Vocera [facility] ([phone]) Wednesday and Wednesday Units: 5 Ortho Vocera, 5 Med Surg Vocera & WB ED Vocera Units: 6 Med Surg Vocera, 8 Med Surg Vocera, & 10 ICU Vocera After hours Vocera [facility] and After Hours Vocera [place] Please NOTE changes to times below: Wednesday & Wednesday (1629 - 2029) Wed-Fri (3026-3303) FV Recognized Holidays ([phone]) Units: ALL - see above VOCERA links to units ORING MACHINE OPERATOR * Drake Nina MD - 06/17/2024 8:55 AM CSTAssociated Order(s): HEMATOLOGY ADULT IP CONSULT Images from the original note were not included. Hematology Consult Note Date of Service: 06/17/2024 Patient: Gianna Hernández Admission Date: 06/16/2024 Hospital Day # 1 Hematology Diagnosis: Sickle Cell Disease [facility]: Dr. Samuel Reason for Consult: Vasoocclusive pain [...] the care coordination note. Please continue her SCRAP IRON LOADER hydrea and folic acid. Recommendations: - Please follow pain plan as outlined in the care coordination note in the summary section. - Ordered 1 unit PRBC along with blood consent which is placed in the chart. - Please continue SCRAP IRON LOADER hydrea 1000 mg BID, Folate 1mg daily. [...] Drake Nina MD Hematology/Oncology/BMT Fellow PGY4 Pager: [phone] History of Present Illness: Gianna Hernández is [...] Currently Drug use: Never Social History Narrative Covq-mv-ybaj mom. Recently moved to [place] from [place], [place]. She is 1 of 9 [...] Social Connections: Socially Integrated (03/28/2024) Received from [facility] Social Connections Do you often feel lonely [...] inadequate. naloxone (NARCAN) 4 MG/0.1ML nasal spray Colton 1 spray (4 mg) into one nostril [...] Araceli Ramires MD at 06/17/2024 11:14 AM FLAVORING MACHINE OPERATOR ORING MACHINE OPERATOR ORING MACHINE OPERATOR Associated attestation - Araceli Ramires MD - 06/17/2024 11:14 AM FLAVORING MACHINE OPERATOR Hematology Consult Attending Attestation I reviewed the [...] Overall, I spent 60 minutes today (DOS) [id number] and/or coordinating care as documented above and specifically listed as below: --Reviewing documentation related to patient's history and this current admission available in [facility] --Review and clinical interpretation of pertinent laboratory [...] time: Means of arrival: Comments: G 41 ORING MACHINE OPERATOR * Abimael Schofiled MD - 06/16/2024 5:18 PM CST ED Provider Note [facility] History Chief Complaint Patient presents with Shortness [...] sinus tachycardia rate of 122 with a [place] interval of 0.128 and a QRS duration of 0.074. The patient had a normal axis with no acute ST or T wave changes significant for ischemia. This is read by me personally. Procedures Results for orders placed or performed during the hospital encounter of 06/16/24 Chest XR, PA & LAT Status: None Narrative EXAM: XR CHEST 2 VIEWS LOCATION: [facility] DATE: 06/16/2024 INDICATION: chest pain COMPARISON: [...] Range ABO/RH(D) A POS SPECIMEN EXPIRATION DATE [id number] CBC with platelets differential Status: Abnormal (In process) Narrative The following orders were created for panel order CBC with platelets differential. Procedure Abnormality Status --------- ------ CBC with platelets and d...[[id number]] Abnormal Preliminary result RBC and Platelet Morphology[[id number]] In process Please view results for these tests on the individual orders. ABO/Rh type and screen Status: None (In process) Narrative The following orders were created for panel order ABO/Rh type and screen. Procedure Abnormality Status --------- ------ Adult Type and Screen[[id number]] Preliminary result Please view results for these tests on the individual orders. Medications sodium chloride (PF) 0.9% PF flush 3 mL (has no administration in time range) sodium chloride (PF) 0.9% PF flush 3 mL (has no administration in time range) sodium chloride 0.9% BOLUS 500 mL (500 mLs Intravenous $New Bag 06/16/24 1886) sodium chloride 0.9 % infusion (has no administration in time range) hydromorphone (DILAUDID) injection 2 mg (2 mg Intravenous $Given 06/16/24 8488) Critical care was not performed. Medical Decision [...] chest syndrome Admit Med Abimael Schofield MD [facility] EMERGENCY DEPARTMENT 06/16/2024 Abimael Schofield MD 06/16/24 1846 ORING MACHINE OPERATOR * Yelitza Manriquez RN - 06/16/2024 4:37 [...] WDL WDL Cognitive/Neuro/Behavioral WDL Cognitive/Neuro/Behavioral WDL WDL ORING MACHINE OPERATOR documented in this encounter Miscellaneous Notes * [...] verbalized hope to discharge to home today ORING MACHINE OPERATOR * Summary of Care - Rene Morocho [...] (January-July only): No, pt declined Detailed Belongings: Delta sweater, brown jacket, sweatpants, glasses, wallet, phone, 2 chargers, air pods ORING MACHINE OPERATOR * Plan of Care - Sarai Shrestha RN - 06/20/2024 12:11 AM CST Goal Outcome Evaluation: BP 103/79,HR 87bpm, resp 18,O2 99 RA Shift:7961-1516 Alert and oriented x4. Independent with ADLs. VSS. Pain managed with Q 2 hrs IV Dilaudid. C/O nausea PRN Zofran administered;effective. R chest port infusing LR @ 75 ml/hr. Report given to Rene BLACK in 7C. ORING MACHINE OPERATOR * Plan of Care - Amelia Gannon RN - 06/19/2024 6:26 AM CST Images from the original note were not included. Shift: 8395-0024 VS: BP 118/85 (BP Location: Left arm) Pulse 99 Temp 98.2 ??F (36.8 ??C) (Oral) Resp 18 [id number]% Pain: Sickle cell pain. Tx with scheduled dilaudid q2hr Neuro: WDL, A&Ox4 Cardiac: WDL Respiratory: WDL, on RA, on pulse ox GI/: WDL, Voiding spontaneously Diet/Appetite: Regular diet LDA's: R. Chest port infusing LR @ 75 Skin: WDL Activity: Independent Tests/Procedures: Pertinent Labs/Lab Collection: Plan: Goal Outcome Evaluation: ORING MACHINE OPERATOR * Plan of Care - Adelaide Acevedo MSW - 06/18/2024 11:05 AM CST Goal Outcome Evaluation: Plan of Care Reviewed With: patient Overall Patient Progress: improvingOverall Patient Progress: improving Pt anticipates discharge home w/ family once med ready ORING MACHINE OPERATOR * Plan of Care - Amelia Gannon RN - 06/18/2024 6:51 AM CST Shift: 6446-5541 VS: BP 115/66 (BP Location: Right arm, [...] Platelet, Creatinine, Reticulocyte Plan: Goal Outcome Evaluation: ORING MACHINE OPERATOR * Plan of Care - Lowell Pepper RN - 06/17/2024 9:37 PM CSTSummary: 4876-6137 BP 110/64 (BP Location: Right arm, Patient [...] Goal: Optimal Comfort and Wellbeing Outcome: Progressing ORING MACHINE OPERATOR * Provider Notification - Lowell Pepper RN - 06/17/2024 10:00 AM CST 06/17/24 0857 Critical Test Results/Notification Critical Lab Result (Lab Name and Value) Hgb 6.3 What Time Did The Lab Notify You? (follow up page. to day time provider.) Provider Notified yes Date of Provider Notification 06/17/24 Time of Provider Notification 0848 Mechanism of Provider notification telephone (via [employer]) What Provider Did You Notify? Nepatli Elias MD Response aware (per primary teams. Awaiting recommendations from hematology team.) ORING MACHINE OPERATOR * Plan of Care - Zaynab Veliz RN - 06/17/2024 6:55 AM CST Goal Outcome Evaluation: Plan of Care Reviewed With: patient Overall Patient Progress: improving Outcome Evaluation: Pt presented to ED with acute onset left sided chest pain & sickle cell pain crisis Shift: 4802-4729 VS: Stable on RA, afebrile Neuro: A&Ox4 Labs: hemoglobin 6.3, provider notified Pain/Nausea: pain rated 8-9/10 PRN: benadryl X2, zofran x 1 Diet: Regular IV Access: none Infusion(s): NACL 100ml/hr Lines/Drains: L-chest wall GI/: voids without difficulty Skin: intact Mobility: up ad chandler Plan: Continue POC ORING MACHINE OPERATOR * Provider Notification - Zaynab Veliz RN - 06/17/2024 6:47 AM FLAVORING MACHINE OPERATOR Jovan encinas lab called, critical value, pt hemoglobin 6.3. ORING MACHINE OPERATOR * Medication Scribe - Admission Medication History - Yennifer Edwards - 06/17/2024 4:14 AM CST Medication Scribe Admission Medication History Admission medication history is complete. The information provided in this note is only as accurateas the sources available at the time of the update. Information Source(s): Patient via in-person Pertinent Information: per pt+CE, pt reported taking medications on SCRAP IRON LOADER medication list as directed. No DRH. Changes made to SCRAP IRON LOADER medication list: Added: None Deleted: None Changed: None Allergies reviewed with patient and updates made in EHR: yes Medication History Completed By: Yennifer Edwards 06/17/2024 4:14 AM SCRAP IRON LOADER Med List Medication Sig Last Dose/Taking cefpodoxime [...] 1 tablet by mouth daily. 06/16/2024 Morning ORING MACHINE OPERATOR ORING MACHINE OPERATOR documented in this encounter Plan of Treatment Not on file documented as of this encounter Goals Goal Patient Goal Type Associated Problems Recent Progress Patient-Stated? Author Pain Management General On track( 025 12:40 PM FLAVORING MACHINE OPERATOR) Yes Juhi Benson, SOFIA Note: Goal Statement: [...] PLATELETS AND DIFFERENTIAL STAT 06/20/2024 5:48 AM FLAVORING MACHINE OPERATOR LACTATE DEHYDROGENASE Routine 06/20/2024 5:48 AM FLAVORING MACHINE OPERATOR CBC WITH PLATELETS & DIFFERENTIAL STAT 06/20/2024 5:48 AM FLAVORING MACHINE OPERATOR RETICULOCYTE COUNT Routine 06/20/2024 5: 48 AM FLAVORING MACHINE OPERATOR COMPREHENSIVE METABOLIC PANEL Routine 06/20/2024 5:48 AM FLAVORING MACHINE OPERATOR RBC AND PLATELET MORPHOLOGY STAT 06/19/2024 9:30 AM FLAVORING MACHINE OPERATOR CBC WITH PLATELETS AND DIFFERENTIAL STAT 06/19/2024 9:30 AM FLAVORING MACHINE OPERATOR LACTATE DEHYDROGENASE STAT 06/19/2024 9:30 AM FLAVORING MACHINE OPERATOR CBC WITH PLATELETS & DIFFERENTIAL STAT 06/19/2024 9:30 AM FLAVORING MACHINE OPERATOR RETICULOCYTE COUNT STAT 06/19/2024 9: 30 AM FLAVORING MACHINE OPERATOR COMPREHENSIVE METABOLIC PANEL STAT 06/19/2024 9:30 AM FLAVORING MACHINE OPERATOR PLATELET COUNT STAT 06/19/2024 12:17 AM FLAVORING MACHINE OPERATOR CREATININE STAT 06/19/2024 12:17 AM FLAVORING MACHINE OPERATOR CBC WITH PLATELETS AND DIFFERENTIAL STAT 06/18/2024 8:24 AM FLAVORING MACHINE OPERATOR LACTATE DEHYDROGENASE STAT 06/18/2024 8:24 AM FLAVORING MACHINE OPERATOR CBC WITH PLATELETS & DIFFERENTIAL STAT 06/18/2024 8:24 AM FLAVORING MACHINE OPERATOR RETICULOCYTE COUNT STAT 06/18/2024 8: 24 AM FLAVORING MACHINE OPERATOR DIFFERENTIAL STAT 06/18/2024 8:24 AM FLAVORING MACHINE OPERATOR COMPREHENSIVE METABOLIC PANEL STAT 06/18/2024 8:24 AM FLAVORING MACHINE OPERATOR ROUTINE UA WITH MICROSCOPIC REFLEX TO CULTURE STAT 06/17/2024 1:11 PM FLAVORING MACHINE OPERATOR TRANSFUSE RED BLOOD CELLS (UNIT) STAT 06/17/2024 10:26 AM FLAVORING MACHINE OPERATOR PREPARE RED BLOOD CELLS (UNIT) STAT 06/17/2024 9:12 AM FLAVORING MACHINE OPERATOR TRANSFERRIN Add-On 06/17/2024 6:16 AM FLAVORING MACHINE OPERATOR IRON AND IRON BINDING CAPACITY Add-On 06/17/2024 6:16 AM FLAVORING MACHINE OPERATOR BASIC METABOLIC PANEL STAT 06/17/2024 6:16 AM FLAVORING MACHINE OPERATOR CBC WITH PLATELETS STAT 06/17/2024 6: 16 AM FLAVORING MACHINE OPERATOR TROPONIN T, HIGH SENSITIVITY STAT 06/16/2024 9:33 PM FLAVORING MACHINE OPERATOR XR CHEST 2 VIEWS STAT 06/16/2024 6:09 PM FLAVORING MACHINE OPERATOR RBC AND PLATELET MORPHOLOGY STAT 06/16/2024 5:37 PM FLAVORING MACHINE OPERATOR CBC WITH PLATELETS AND DIFFERENTIAL STAT 06/16/2024 5:37 PM FLAVORING MACHINE OPERATOR TYPE AND SCREEN, ADULT STAT 5:37 PM FLAVORING MACHINE OPERATOR TROPONIN T, HIGH SENSITIVITY STAT 06/16/2024 5:37 PM FLAVORING MACHINE OPERATOR CBC WITH PLATELETS & DIFFERENTIAL STAT 06/16/2024 5:37 PM FLAVORING MACHINE OPERATOR PROLACTIN STAT 06/16/2024 5:37 PM FLAVORING MACHINE OPERATOR COMPREHENSIVE METABOLIC PANEL STAT 06/16/2024 5:37 PM FLAVORING MACHINE OPERATOR BLOOD CULTURE STAT 06/16/2024 5:37 PM FLAVORING MACHINE OPERATOR ABO/RH TYPE AND SCREEN STAT 5:37 PM FLAVORING MACHINE OPERATOR EKG 12-LEAD, TRACING ONLY STAT 06/16/2024 4:55 PM FLAVORING MACHINE OPERATOR documented in this encounter Results * (ABNORMAL) CBC with platelets and differential (06/20/2024 5:48 AM FLAVORING MACHINE OPERATOR) WBC Count 9.3 4.0 - 11.0 10e3/uL 06/20/2024 6:05 AM FLAVORING MACHINE OPERATOR [facility] RBC Count 2.54(L) 3.80 - 5.20 10e6/uL 06/20/2024 6:05 AM FLAVORING MACHINE OPERATOR [facility] Hemoglobin 8.0(L) 11.7 - 15.7 g/dL 06/20/2024 6:05 AM FLAVORING MACHINE OPERATOR [facility] Hematocrit 23.2(L) 35.0 - 47.0 % 06/20/2024 6:05 AM FLAVORING MACHINE OPERATOR [facility] MCV 91 78 - 100 fL 06/20/2024 6:05 AM FLAVORING MACHINE OPERATOR [facility] MCH 31.5 26.5 - 33.0 pg 06/20/2024 6:05 AM FLAVORING MACHINE OPERATOR [facility] MCHC 34.5 31.5 - 36.5 g/dL 06/20/2024 6:05 AM FLAVORING MACHINE OPERATOR [facility] RDW 18.4(H) 10.0 - 15.0 % 06/20/2024 6:05 AM FLAVORING MACHINE OPERATOR [facility] Platelet Count 435 150 - 450 10e3/uL 06/20/2024 6:05 AM FLAVORING MACHINE OPERATOR [facility] % Neutrophils 47 % 06/20/2024 6:05 AM FLAVORING MACHINE OPERATOR [facility] % Lymphocytes 43 % 06/20/2024 6:05 AM FLAVORING MACHINE OPERATOR [facility] % Monocytes 6 % 06/20/2024 6:05 AM FLAVORING MACHINE OPERATOR [facility] % Eosinophils 3 % 06/20/2024 6:05 AM FLAVORING MACHINE OPERATOR [facility] % Basophils 1 % 06/20/2024 6:05 AM FLAVORING MACHINE OPERATOR [facility] % Immature Granulocytes 1 % 06/20/2024 6:05 AM FLAVORING MACHINE OPERATOR [facility] NRBCs per 100 WBC 1(H) <1 /100 025 6:05 AM FLAVORING MACHINE OPERATOR [facility] Absolute Neutrophils 4.4 1.6 - 8.3 10e3/uL 06/20/2024 6:05 AM FLAVORING MACHINE OPERATOR [facility] Absolute Lymphocytes 4.0 0.8 - 5.3 10e3/uL 06/20/2024 6:05 AM FLAVORING MACHINE OPERATOR [facility] Absolute Monocytes 0.5 0.0 - 1.3 10e3/uL 06/20/2024 6:05 AM FLAVORING MACHINE OPERATOR [facility] Absolute Eosinophils 0.3 0.0 - 0.7 10e3/uL 06/20/2024 6:05 AM FLAVORING MACHINE OPERATOR [facility] Absolute Basophils 0.1 0.0 - 0.2 10e3/uL 06/20/2024 6:05 AM FLAVORING MACHINE OPERATOR [facility] Absolute Immature Granulocytes 0.1 <=0.4 10e3/uL 06/20/2024 6:05 AM FLAVORING MACHINE OPERATOR [facility] Absolute NRBCs 0.1 10e3/uL 06/20/2024 6:05 AM FLAVORING MACHINE OPERATOR [facility] Blood (Portacath) IVAD (Port) / Unknown 06/20/2024 5:48 AM FLAVORING MACHINE OPERATOR 06/20/2024 5:55 AM FLAVORING MACHINE OPERATOR Rl Elias MD LAB - BLOOD ORDER SYD Final Result [facility] [address], [address] * (ABNORMAL) Reticulocyte count (06/20/2024 5:48 AM FLAVORING MACHINE OPERATOR) [facility] % Reticulocyte 9.6(H) 0.5 - 2.0 % 06/20/2024 6:37 AM FLAVORING MACHINE OPERATOR [facility] Absolute Reticulocyte 0.236(H) 0.025 - 0.095 10e6/uL 06/20/2024 6:37 AM FLAVORING MACHINE OPERATOR [facility] Blood (Portacath) IVAD (Port) / Unknown 06/20/2024 5:48 AM FLAVORING MACHINE OPERATOR 06/20/2024 5:55 AM FLAVORING MACHINE OPERATOR Rl Elias MD LAB - BLOOD ORDER SYD Final Result [facility] [address], [address] [place] [address], [place] * (ABNORMAL) Comprehensive metabolic panel (06/20/2024 5:48 AM FLAVORING MACHINE OPERATOR) Sodium 133(L) 135 - 145 mmol/L 06/20/2024 6:35 AM FLAVORING MACHINE OPERATOR [facility] Potassium 4.6 3.4 - 5.3 mmol/L 06/20/2024 6:35 AM FLAVORING MACHINE OPERATOR [facility] Carbon Dioxide (CO2) 21(L) 22 - 29 mmol/L 06/20/2024 6:35 AM FLAVORING MACHINE OPERATOR [facility] Anion Gap 8 7 - 15 mmol/L 06/20/2024 6:35 AM FLAVORING MACHINE OPERATOR [facility] Urea Nitrogen 14.6 6.0 - 20.0 mg/dL 06/20/2024 6:35 AM FLAVORING MACHINE OPERATOR [facility] Creatinine 0.66 0.51 - 0.95 mg/dL 06/20/2024 6:35 AM FLAVORING MACHINE OPERATOR [facility] GFR Estimate >90 >60 mL/min/1.7 3m2 06/20/2024 6:35 AM FLAVORING MACHINE OPERATOR [facility] Comment:eGFR calculated usin 2020 CKD-EPI equation. Calcium 8.7(L) 8.8 - 10.4 mg/dL 06/20/2024 6:35 AM FLAVORING MACHINE OPERATOR [facility] Chloride 104 98 - 107 mmol/L 06/20/2024 6:35 AM FLAVORING MACHINE OPERATOR [facility] Glucose 100(H) 70 - 99 mg/dL 06/20/2024 6:35 AM FLAVORING MACHINE OPERATOR [facility] Alkaline Phosphatase 98 40 - 150 U/L 06/20/2024 6:35 AM FLAVORING MACHINE OPERATOR [facility] AST 67(H) 0 - 45 U/L 06/20/2024 6:35 AM FLAVORING MACHINE OPERATOR [facility] ALT 40 0 - 50 U/L 06/20/2024 6:35 AM FLAVORING MACHINE OPERATOR [facility] Protein Total 7.2 6.4 - 8.3 g/dL 06/20/2024 6:35 AM FLAVORING MACHINE OPERATOR [facility] Albumin 3.9 3.5 - 5.2 g/dL 06/20/2024 6:35 AM FLAVORING MACHINE OPERATOR [facility] Bilirubin Total 1.5(H) <=1.2 mg/dL 06/20/2024 6:35 AM FLAVORING MACHINE OPERATOR [facility] Blood (Portacath) IVAD (Port) / Unknown 06/20/2024 5:48 AM FLAVORING MACHINE OPERATOR 06/20/2024 5:55 AM FLAVORING MACHINE OPERATOR Rl Elias MD LAB - BLOOD ORDER SYD Final Result [facility] [address], [address] [phone] * (ABNORMAL) Lactate Dehydrogenase (06/20/2024 5:48 AM FLAVORING MACHINE OPERATOR) [facility] Lactate Dehydrogenase 571(H) 0 - 250 U/L 06/20/2024 6:35 AM FLAVORING MACHINE OPERATOR [facility] Blood (Portacath) IVAD (Port) / Unknown 06/20/2024 5:48 AM FLAVORING MACHINE OPERATOR 06/20/2024 5:55 AM FLAVORING MACHINE OPERATOR Rl Elias MD LAB - BLOOD ORDER SYD Final Result [facility] [address], [address] [phone] * (ABNORMAL) RBC and Platelet Morphology (06/19/2024 9:30 AM FLAVORING MACHINE OPERATOR) [facility] RBC Morphology Confirmed RBC Indices 06/19/2024 11:43 AM FLAVORING MACHINE OPERATOR [facility] Platelet Assessment Automated Count Confirmed. Giant platelets are present.(A) Automated Count Confirmed. Platelet morphology is normal. 06/19/2024 11:43 AM FLAVORING MACHINE OPERATOR [facility] Giant Platelets Slight(A) None Seen 11:43 AM FLAVORING MACHINE OPERATOR [facility] Elliptocytes None Seen None Seen 06/19/2024 11:43 AM FLAVORING MACHINE OPERATOR [facility] Polychromasia Slight(A) None Seen 06/19/2024 11:43 AM FLAVORING MACHINE OPERATOR [facility] RBC Fragments Slight(A) None Seen 06/19/2024 11:43 AM FLAVORING MACHINE OPERATOR [facility] Reactive Lymphocytes Present(A) None Seen 06/19/2024 11:43 AM FLAVORING MACHINE OPERATOR [facility] Sickle Cells Moderate(A) None Seen 06/19/2024 11:43 AM FLAVORING MACHINE OPERATOR [facility] Smudge Cells Present(A) None Seen 06/19/2024 11:43 AM FLAVORING MACHINE OPERATOR [facility] Target Cells Moderate(A) None Seen 06/19/2024 11:43 AM FLAVORING MACHINE OPERATOR [facility] Blood CENTRAL VENOUS CATHETER / Unknown VAD(CVC, PICC) / Unknown 06/19/2024 9:30 AM FLAVORING MACHINE OPERATOR 06/19/2024 9:42 AM FLAVORING MACHINE OPERATOR Rl Elias MD LAB - BLOOD ORDER SYD Final Result [facility] [address], [address] [place] [address] * (ABNORMAL) CBC with platelets and differential (06/19/2024 9:30 AM FLAVORING MACHINE OPERATOR) WBC Count 9.9 4.0 - 11.0 10e3/uL 06/19/2024 11:43 AM FLAVORING MACHINE OPERATOR [facility] RBC Count 2.55(L) 3.80 - 5.20 10e6/uL 06/19/2024 11:43 AM FLAVORING MACHINE OPERATOR [facility] Hemoglobin 8.1(L) 11.7 - 15.7 g/dL 06/19/2024 11:43 AM FLAVORING MACHINE OPERATOR [facility] Hematocrit 24.0(L) 35.0 - 47.0 % 06/19/2024 11:43 AM FLAVORING MACHINE OPERATOR [facility] MCV 94 78 - 100 fL 06/19/2024 11:43 AM FLAVORING MACHINE OPERATOR [facility] MCH 31.8 26.5 - 33.0 pg 06/19/2024 11:43 AM FLAVORING MACHINE OPERATOR [facility] MCHC 33.8 31.5 - 36.5 g/dL 06/19/2024 11:43 AM FLAVORING MACHINE OPERATOR [facility] RDW 18.4(H) 10.0 - 15.0 % 06/19/2024 11:43 AM FLAVORING MACHINE OPERATOR [facility] Platelet Count 471(H) 150 - 450 10e3/uL 06/19/2024 11:43 AM FLAVORING MACHINE OPERATOR [facility] % Neutrophils 62 % 06/19/2024 11:43 AM FLAVORING MACHINE OPERATOR [facility] % Lymphocytes 28 % 06/19/2024 11:43 AM FLAVORING MACHINE OPERATOR [facility] % Monocytes 6 % 06/19/2024 11:43 AM FLAVORING MACHINE OPERATOR [facility] % Eosinophils 3 % 06/19/2024 11:43 AM FLAVORING MACHINE OPERATOR [facility] % Basophils 1 % 06/19/2024 11:43 AM FLAVORING MACHINE OPERATOR [facility] % Immature Granulocytes 1 % 06/19/2024 11:43 AM FLAVORING MACHINE OPERATOR [facility] NRBCs per 100 WBC 4(H) <1 /100 025 11:43 AM FLAVORING MACHINE OPERATOR [facility] Absolute Neutrophils 6.1 1.6 - 8.3 10e3/uL 06/19/2024 11:43 AM FLAVORING MACHINE OPERATOR [facility] Absolute Lymphocytes 2.7 0.8 - 5.3 10e3/uL 06/19/2024 11:43 AM FLAVORING MACHINE OPERATOR [facility] Absolute Monocytes 0.6 0.0 - 1.3 10e3/uL 06/19/2024 11:43 AM FLAVORING MACHINE OPERATOR [facility] Absolute Eosinophils 0.3 0.0 - 0.7 10e3/uL 06/19/2024 11:43 AM FLAVORING MACHINE OPERATOR [facility] Absolute Basophils 0.1 0.0 - 0.2 10e3/uL 06/19/2024 11:43 AM FLAVORING MACHINE OPERATOR [facility] Absolute Immature Granulocytes 0.1 <=0.4 10e3/uL 06/19/2024 11:43 AM FLAVORING MACHINE OPERATOR [facility] Absolute NRBCs 0.4 10e3/uL 06/19/2024 11:43 AM FLAVORING MACHINE OPERATOR [facility] Blood CENTRAL VENOUS CATHETER / Unknown VAD(CVC, PICC) / Unknown 06/19/2024 9:30 AM FLAVORING MACHINE OPERATOR 06/19/2024 9:42 AM FLAVORING MACHINE OPERATOR Rl Elias MD LAB - BLOOD ORDER SYD Final Result [facility] [address], [address] [place] [phone] * (ABNORMAL) Reticulocyte count (06/19/2024 9:30 AM FLAVORING MACHINE OPERATOR) [facility] % Reticulocyte 9.2(H) 0.5 - 2.0 % 06/19/2024 9:48 AM FLAVORING MACHINE OPERATOR [facility] Absolute Reticulocyte 0.234(H) 0.025 - 0.095 10e6/uL 06/19/2024 9:48 AM FLAVORING MACHINE OPERATOR [facility] Blood CENTRAL VENOUS CATHETER / Unknown VAD(CVC, PICC) / Unknown 06/19/2024 9:30 AM FLAVORING MACHINE OPERATOR 06/19/2024 9:42 AM FLAVORING MACHINE OPERATOR Rl Elias MD LAB - BLOOD ORDER SYD Final Result [facility] [address], [address] [place] [phone] * (ABNORMAL) Comprehensive metabolic panel (06/19/2024 9:30 AM FLAVORING MACHINE OPERATOR) Sodium 135 135 - 145 mmol/L 06/19/2024 10:13 AM FLAVORING MACHINE OPERATOR [facility] Potassium 4.4 3.4 - 5.3 mmol/L 06/19/2024 10:13 AM FLAVORING MACHINE OPERATOR [facility] Carbon Dioxide (CO2) 21(L) 22 - 29 mmol/L 06/19/2024 10:13 AM FLAVORING MACHINE OPERATOR [facility] Anion Gap 9 7 - 15 mmol/L 06/19/2024 10:13 AM FLAVORING MACHINE OPERATOR [facility] Urea Nitrogen 12.3 6.0 - 20.0 mg/dL 06/19/2024 10:13 AM FLAVORING MACHINE OPERATOR [facility] Creatinine 0.68 0.51 - 0.95 mg/dL 06/19/2024 10:13 AM FLAVORING MACHINE OPERATOR [facility] GFR Estimate >90 >60 mL/min/1.7 3m2 06/19/2024 10:13 AM FLAVORING MACHINE OPERATOR [facility] Comment:eGFR calculated us2020 CKD-EPI equation. Calcium 8.9 8.8 - 10.4 mg/dL 06/19/2024 10:13 AM FLAVORING MACHINE OPERATOR [facility] Chloride 105 98 - 107 mmol/L 06/19/2024 10:13 AM FLAVORING MACHINE OPERATOR [facility] Glucose 100(H) 70 - 99 mg/dL 06/19/2024 10:13 AM FLAVORING MACHINE OPERATOR [facility] Alkaline Phosphatase 94 40 - 150 U/L 06/19/2024 10:13 AM FLAVORING MACHINE OPERATOR [facility] AST 54(H) 0 - 45 U/L 06/19/2024 10:13 AM FLAVORING MACHINE OPERATOR [facility] ALT 31 0 - 50 U/L 06/19/2024 10:13 AM FLAVORING MACHINE OPERATOR [facility] Protein Total 7.1 6.4 - 8.3 g/dL 06/19/2024 10:13 AM FLAVORING MACHINE OPERATOR [facility] Albumin 3.9 3.5 - 5.2 g/dL 06/19/2024 10:13 AM FLAVORING MACHINE OPERATOR [facility] Bilirubin Total 1.5(H) <=1.2 mg/dL 06/19/2024 10:13 AM FLAVORING MACHINE OPERATOR [facility] Blood CENTRAL VENOUS CATHETER / Unknown VAD(CVC, PICC) / Unknown 06/19/2024 9:30 AM FLAVORING MACHINE OPERATOR 06/19/2024 9:41 AM FLAVORING MACHINE OPERATOR Rl Elias MD LAB - BLOOD ORDER SYD Final Result [facility] [address], [address] * (ABNORMAL) Lactate Dehydrogenase (06/19/2024 9:30 AM FLAVORING MACHINE OPERATOR) Lactate Dehydrogenase 507(H) 0 - 250 U/L 06/19/2024 10:13 AM FLAVORING MACHINE OPERATOR [facility] Blood CENTRAL VENOUS CATHETER / Unknown VAD(CVC, PICC) / Unknown 06/19/2024 9:30 AM FLAVORING MACHINE OPERATOR 06/19/2024 9:41 AM FLAVORING MACHINE OPERATOR Rl Elias MD LAB - BLOOD ORDER SYD Final Result [facility] [address], [address] * (ABNORMAL) Platelet count (06/19/2024 12:17 AM FLAVORING MACHINE OPERATOR) Platelet Count 467(H) 150 - 450 10e3/uL 06/19/2024 12:44 AM FLAVORING MACHINE OPERATOR [facility] Blood BLOOD SPECIMEN / Unknown Venipuncture / Unknown 06/19/2024 12:17 AM FLAVORING MACHINE OPERATOR 06/19/2024 12:26 AM FLAVORING MACHINE OPERATOR Laquita Kelley MD LAB - BLOOD ORDERABLES Final Re sult [facility] [address], [address] * Creatinine (06/19/2024 12:17 AM FLAVORING MACHINE OPERATOR) Creatinine 0.72 0.51 - 0.95 mg/dL 06/19/2024 12:51 AM FLAVORING MACHINE OPERATOR [facility] GFR Estimate >90 >60 mL/min/1.7 3m2 06/19/2024 12:51 AM FLAVORING MACHINE OPERATOR [facility] Comment:eGFR calculated usin 2020 CKD-EPI equation. Blood BLOOD SPECIMEN / Unknown Venipuncture / Unknown 06/19/2024 12:17 AM FLAVORING MACHINE OPERATOR 06/19/2024 12:26 AM FLAVORING MACHINE OPERATOR Laquita Kelley MD LAB - BLOOD ORDERABLES Final Re sult Performing Organization Address City/[facility]/ZIP Co de Phone Number [facility] [address], [address] * (ABNORMAL) Manual Differential (06/18/2024 8:24 AM FLAVORING MACHINE OPERATOR) % Neutrophils 52 % 06/18/2024 9:35 AM FLAVORING MACHINE OPERATOR [facility] % Lymphocytes 39 % 06/18/2024 9:35 AM FLAVORING MACHINE OPERATOR [facility] % Monocytes 7 % 06/18/2024 9:35 AM FLAVORING MACHINE OPERATOR [facility] % Eosinophils 3 % 06/18/2024 9:35 AM FLAVORING MACHINE OPERATOR [facility] % Basophils 0 % 06/18/2024 9:35 AM FLAVORING MACHINE OPERATOR [facility] NRBCs per 100 WBC 13(H) <=0 % 06/18/2024 9:35 AM FLAVORING MACHINE OPERATOR [facility] Absolute Neutrophils 5.6 1.6 - 8.3 10e3/uL 06/18/2024 9:35 AM FLAVORING MACHINE OPERATOR [facility] Absolute Lymphocytes 4.2 0.8 - 5.3 10e3/uL 06/18/2024 9:35 AM FLAVORING MACHINE OPERATOR [facility] Absolute Monocytes 0.7 0.0 - 1.3 10e3/uL 06/18/2024 9:35 AM FLAVORING MACHINE OPERATOR [facility] Absolute Eosinophils 0.3 0.0 - 0.7 10e3/uL 06/18/2024 9:35 AM FLAVORING MACHINE OPERATOR [facility] Absolute Basophils 0.0 0.0 - 0.2 10e3/uL 06/18/2024 9:35 AM FLAVORING MACHINE OPERATOR [facility] Absolute NRBCs 1.4(H) <=0.0 10e3/uL 025 9:35 AM FLAVORING MACHINE OPERATOR [facility] RBC Morphology Confirmed RBC Indices 06/18/2024 9:35 AM FLAVORING MACHINE OPERATOR [facility] Platelet Assessment Automated Count Confirmed. Platelet morphology is normal. Automated Count Confirmed. Platelet morphology is normal. 06/18/2024 9:35 AM FLAVORING MACHINE OPERATOR [facility] RBC Fragments Slight(A) None Seen 06/18/2024 9:35 AM FLAVORING MACHINE OPERATOR [facility] Polychromasia Slight(A) None Seen 06/18/2024 9:35 AM FLAVORING MACHINE OPERATOR [facility] Sickle Cells Moderate(A) None Seen 06/18/2024 9:35 AM FLAVORING MACHINE OPERATOR [facility] Blood BLOOD SPECIMEN / Unknown Venipuncture / Unknown 06/18/2024 8:24 AM FLAVORING MACHINE OPERATOR 06/18/2024 8:32 AM FLAVORING MACHINE OPERATOR us Rl Elias MD LAB - BLOOD ORDER SYD Final Result [facility] [address], [address] [place] [address], [facility] * (ABNORMAL) CBC with platelets and differential (06/18/2024 8:24 AM FLAVORING MACHINE OPERATOR) WBC Count 10.8 4.0 - 11.0 10e3/uL 06/18/2024 9:24 AM FLAVORING MACHINE OPERATOR [facility] RBC Count 2.51(L) 3.80 - 5.20 10e6/uL 06/18/2024 9:24 AM FLAVORING MACHINE OPERATOR [facility] Hemoglobin 8.1(L) 11.7 - 15.7 g/dL 06/18/2024 9:24 AM FLAVORING MACHINE OPERATOR [facility] Hematocrit 23.1(L) 35.0 - 47.0 % 06/18/2024 9:24 AM FLAVORING MACHINE OPERATOR [facility] MCV 92 78 - 100 fL 06/18/2024 9:24 AM FLAVORING MACHINE OPERATOR [facility] MCH 32.3 26.5 - 33.0 pg 06/18/2024 9:24 AM FLAVORING MACHINE OPERATOR [facility] MCHC 35.1 31.5 - 36.5 g/dL 06/18/2024 9:24 AM FLAVORING MACHINE OPERATOR [facility] RDW 18.7(H) 10.0 - 15.0 % 06/18/2024 9:24 AM FLAVORING MACHINE OPERATOR [facility] Platelet Count 452(H) 150 - 450 10e3/uL 06/18/2024 9:24 AM FLAVORING MACHINE OPERATOR [facility] Blood BLOOD SPECIMEN / Unknown Venipuncture / Unknown 06/18/2024 8:24 AM FLAVORING MACHINE OPERATOR 06/18/2024 8:32 AM FLAVORING MACHINE OPERATOR Rl Elias MD LAB - BLOOD ORDER SYD Final Result [facility] [address], [address] [id number] * (ABNORMAL) Reticulocyte count (06/18/2024 8:24 AM FLAVORING MACHINE OPERATOR) [facility] % Reticulocyte 10.0(H) 0.5 - 2.0 % 06/18/2024 8:38 AM FLAVORING MACHINE OPERATOR [facility] Absolute Reticulocyte 0.250(H) 0.025 - 0.095 10e6/uL 06/18/2024 8:38 AM FLAVORING MACHINE OPERATOR [facility] Blood BLOOD SPECIMEN / Unknown Venipuncture / Unknown 06/18/2024 8:24 AM FLAVORING MACHINE OPERATOR 06/18/2024 8:32 AM FLAVORING MACHINE OPERATOR Rl Elias MD LAB - BLOOD ORDER SYD Final Result [facility] [address], [address] [place], [place] [id number] * (ABNORMAL) Comprehensive metabolic panel (06/18/2024 8:24 AM FLAVORING MACHINE OPERATOR) Sodium 133(L) 135 - 145 mmol/L 06/18/2024 9:02 AM FLAVORING MACHINE OPERATOR [facility] Potassium 4.3 3.4 - 5.3 mmol/L 06/18/2024 9:02 AM FLAVORING MACHINE OPERATOR [facility] Carbon Dioxide (CO2) 21(L) 22 - 29 mmol/L 06/18/2024 9:02 AM FLAVORING MACHINE OPERATOR [facility] Anion Gap 7 7 - 15 mmol/L 06/18/2024 9:02 AM FLAVORING MACHINE OPERATOR [facility] Urea Nitrogen 9.2 6.0 - 20.0 mg/dL 06/18/2024 9:02 AM FLAVORING MACHINE OPERATOR [facility] Creatinine 0.65 0.51 - 0.95 mg/dL 06/18/2024 9:02 AM FLAVORING MACHINE OPERATOR [facility] GFR Estimate >90 >60 mL/min/1.7 3m2 06/18/2024 9:02 AM FLAVORING MACHINE OPERATOR [facility] Comment:eGFR calculated us2020 CKD-EPI equation. Calcium 8.7(L) 8.8 - 10.4 mg/dL 06/18/2024 9:02 AM FLAVORING MACHINE OPERATOR [facility] Chloride 105 98 - 107 mmol/L 06/18/2024 9:02 AM FLAVORING MACHINE OPERATOR [facility] Glucose 92 70 - 99 mg/dL 06/18/2024 9:02 AM FLAVORING MACHINE OPERATOR [facility] Alkaline Phosphatase 86 40 - 150 U/L 06/18/2024 9:02 AM FLAVORING MACHINE OPERATOR [facility] AST 45 0 - 45 U/L 06/18/2024 9:02 AM FLAVORING MACHINE OPERATOR [facility] ALT 27 0 - 50 U/L 06/18/2024 9:02 AM FLAVORING MACHINE OPERATOR [facility] Protein Total 7.0 6.4 - 8.3 g/dL 06/18/2024 9:02 AM FLAVORING MACHINE OPERATOR [facility] Albumin 3.9 3.5 - 5.2 g/dL 06/18/2024 9:02 AM FLAVORING MACHINE OPERATOR [facility] Bilirubin Total 1.4(H) <=1.2 mg/dL 06/18/2024 9:02 AM FLAVORING MACHINE OPERATOR [facility] Blood BLOOD SPECIMEN / Unknown Venipuncture / Unknown 06/18/2024 8:24 AM FLAVORING MACHINE OPERATOR 06/18/2024 8:32 AM FLAVORING MACHINE OPERATOR us Rl Elias MD LAB - BLOOD ORDER SYD Final Result LABORATORY [facility] Core Lab [address], [address] [phone] * (ABNORMAL) Lactate Dehydrogenase (06/18/2024 8:24 AM FLAVORING MACHINE OPERATOR) Lactate Dehydrogenase 491(H) 0 - 250 U/L 06/18/2024 9:02 AM FLAVORING MACHINE OPERATOR [facility] Blood BLOOD SPECIMEN / Unknown Venipuncture / Unknown 06/18/2024 8:24 AM FLAVORING MACHINE OPERATOR 06/18/2024 8:32 AM FLAVORING MACHINE OPERATOR Rl Elias MD LAB - BLOOD ORDER SYD Final Result Performing Organization Address City/[facility] Co de Phone Number LABORATORY [facility] Core Lab [address], [address] [phone] * Transfuse red blood cells (unit), Sickle Cell (Hgb S) Negative (06/17/2024 2:33 PM FLAVORING MACHINE OPERATOR) us Drake Nina MD BLOOD TRANSFUSION ORDERABLES Final Result * Transfuse red blood cells (unit), 1 Units, Sickle Cell (Hgb S) Negative (06/17/2024 2:33 PM FLAVORING MACHINE OPERATOR) us Drake Nina MD BLOOD TRANSFUSION ORDERABLES Final Result * (ABNORMAL) UA with Microscopic reflex to Culture (06/17/2024 1:11 PM FLAVORING MACHINE OPERATOR) Color Urine Light Yellow Colorless, Straw, Light Yellow, Yellow 06/17/2024 1:48 PM FLAVORING MACHINE OPERATOR [facility] Appearance Urine Clear Clear 06/17/19 25 1:48 PM FLAVORING MACHINE OPERATOR [facility] Glucose Urine Negative Negative mg/dL 06/17/2024 1:48 PM FLAVORING MACHINE OPERATOR [facility] Bilirubin Urine Negative Negative 5 1:48 PM FLAVORING MACHINE OPERATOR [facility] Ketones Urine Negative Negative mg/dL 06/17/2024 1:48 PM FLAVORING MACHINE OPERATOR [facility] Specific [place] Urine 1.009 1.003 - 1.035 06/17/2024 1:48 PM FLAVORING MACHINE OPERATOR [facility] Blood Urine Trace(A) Negative 06/17/2024 1:48 PM FLAVORING MACHINE OPERATOR [facility] pH Urine 6.5 5.0 - 7.0 06/17/2024 1:48 PM FLAVORING MACHINE OPERATOR [facility] Protein Albumin Urine Negative Negative mg/dL 06/17/2024 1:48 PM FLAVORING MACHINE OPERATOR [facility] Urobilinogen Urine Normal Normal, 2.0 mg/dL 06/17/2024 1:48 PM FLAVORING MACHINE OPERATOR [facility] Nitrite Urine Negative Negative 06/17/2024 1:48 PM FLAVORING MACHINE OPERATOR [facility] Leukocyte Esterase Urine Small(A) Negative 06/17/2024 1:48 PM FLAVORING MACHINE OPERATOR [facility] RBC Urine <1 <=2 /HPF 06/17/2024 1:48 PM FLAVORING MACHINE OPERATOR [facility] WBC Urine <1 <=5 /HPF 06/17/2024 1:48 PM FLAVORING MACHINE OPERATOR [facility] Squamous Epithelials Urine 3(H) <=1 /HPF 06/17/2024 1:48 PM FLAVORING MACHINE OPERATOR [facility] Urine URINE SPECIMEN OBTAINED BY CLEAN CATCH PROCEDURE / Unknown Non-blood Collection / Unknown 06/17/2024 1:11 PM FLAVORING MACHINE OPERATOR 06/17/2024 1:38 PM FLAVORING MACHINE OPERATOR Narrative [facility] - 06/17/2024 1:48 PM FLAVORING MACHINE OPERATOR Urine Culture not indicated Rl Elias MD LAB - URINE ORDER SYD Final Result [facility] [address], [address] [place] [phone] * Prepare red blood cells (unit) (06/17/2024 9:12 AM FLAVORING MACHINE OPERATOR) Blood Component Type Red Blood Cells [facility] Product Code [id number] [facility] Unit Status Transfused [facility] Unit Number [id number] [facility] B LOOD BANK CROSSMATCH COMPATIBLE [facility] CODING SYSTEM [id number] [facility] BLO OD BANK ISSUE DATE AND TIME [id number] [facility] B[facility] B[facility] UNIT ABO/RH A+ [facility] B[facility] BANK UNIT TYPE ISBT 6200 [facility] BL OOD BANK 06/17/2024 9:12 AM FLAVORING MACHINE OPERATOR us Drake Nina MD BLOOD BANK PRODUCT ORDERABLES Final Result BLOOD BANK [address] [place] [phone] * (ABNORMAL) Transferrin (06/17/2024 6:16 AM FLAVORING MACHINE OPERATOR) Transferrin 100.0(L) 200.0 - 360.0 mg/dL 06/17/2024 9:36 AM FLAVORING MACHINE OPERATOR [facility] Blood VENOUS LINE / Unknown IVAD (Port) / Unknown 06/17/2024 6:16 AM FLAVORING MACHINE OPERATOR 06/17/2024 6:27 AM FLAVORING MACHINE OPERATOR us Drake Nina MD LAB - BLOOD ORDERABLES Final Result [facility] LABORATORY [facility] [place] [facility] [address], [address] [place], [place] [phone] * Iron and iron binding capacity (06/17/2024 6:16 AM FLAVORING MACHINE OPERATOR) Iron 123 37 - 145 ug/dL 06/17/2024 10:02 AM FLAVORING MACHINE OPERATOR [facility] Iron Binding Capacity 06/17/2024 10:02 AM FLAVORING MACHINE OPERATOR [facility] Comment:Unable to calculate: UIBC or Iron value is outside detectable level. Iron Sat Index 06/17/2024 10:02 AM FLAVORING MACHINE OPERATOR [facility] Comment:Unable to calculate: UIBC or Iron value is outside detectable level. Blood VENOUS LINE / Unknown IVAD (Port) / Unknown 06/17/2024 6:16 AM FLAVORING MACHINE OPERATOR 06/17/2024 6:27 AM FLAVORING MACHINE OPERATOR us Drake Nina MD LAB - BLOOD ORDERABLES Final Result [facility] [address], [address] [place] [address] * (ABNORMAL) CBC with platelets (06/17/2024 6:16 AM FLAVORING MACHINE OPERATOR) Pathologist [facility] WBC Count 14.6(H) 4.0 - 11.0 10e3/uL 06/17/2024 6:38 AM FLAVORING MACHINE OPERATOR [facility] RBC Count 1.97(L) 3.80 - 5.20 10e6/uL 06/17/2024 6:38 AM FLAVORING MACHINE OPERATOR [facility] Hemoglobin 6.3(LL) 11.7 - 15.7 g/dL 06/17/2024 6:38 AM FLAVORING MACHINE OPERATOR [facility] Hematocrit 17.9(L) 35.0 - 47.0 % 06/17/2024 6:38 AM FLAVORING MACHINE OPERATOR [facility] MCV 91 78 - 100 fL 06/17/2024 6:38 AM FLAVORING MACHINE OPERATOR [facility] MCH 32.0 26.5 - 33.0 pg 06/17/2024 6:38 AM FLAVORING MACHINE OPERATOR [facility] MCHC 35.2 31.5 - 36.5 g/dL 06/17/2024 6:38 AM FLAVORING MACHINE OPERATOR [facility] RDW 20.1(H) 10.0 - 15.0 % 06/17/2024 6:38 AM FLAVORING MACHINE OPERATOR [facility] Platelet Count 468(H) 150 - 450 10e3/uL 06/17/2024 6:38 AM FLAVORING MACHINE OPERATOR [facility] Blood VENOUS LINE / Unknown IVAD (Port) / Unknown 06/17/2024 6:16 AM FLAVORING MACHINE OPERATOR 06/17/2024 6:27 AM FLAVORING MACHINE OPERATOR us Laquita Kelley MD LAB - BLOOD ORDERABLES Final Re sult [facility] [address], [address] [place] [phone] * (ABNORMAL) Basic metabolic panel (06/17/2024 6:16 AM FLAVORING MACHINE OPERATOR) Pathologist [facility] Sodium 134(L) 135 - 145 mmol/L 06/17/2024 6:55 AM FLAVORING MACHINE OPERATOR [facility] Potassium 4.6 3.4 - 5.3 mmol/L 06/17/2024 6:55 AM FLAVORING MACHINE OPERATOR [facility] Chloride 105 98 - 107 mmol/L 06/17/2024 6:55 AM FLAVORING MACHINE OPERATOR [facility] Carbon Dioxide (CO2) 20(L) 22 - 29 mmol/L 06/17/2024 6:55 AM FLAVORING MACHINE OPERATOR [facility] Anion Gap 9 7 - 15 mmol/L 06/17/2024 6:55 AM FLAVORING MACHINE OPERATOR [facility] Urea Nitrogen 16.1 6.0 - 20.0 mg/dL 06/17/2024 6:55 AM FLAVORING MACHINE OPERATOR [facility] Creatinine 0.90 0.51 - 0.95 mg/dL 06/17/2024 6:55 AM FLAVORING MACHINE OPERATOR [facility] GFR Estimate 88 >60 mL/min/1.7 3m2 06/17/2024 6:55 AM FLAVORING MACHINE OPERATOR [facility] Comment:eGFR calculated usin 2020 CKD-EPI equation. Calcium 8.4(L) 8.8 - 10.4 mg/dL 06/17/2024 6:55 AM FLAVORING MACHINE OPERATOR [facility] Glucose 95 70 - 99 mg/dL 06/17/2024 6:55 AM FLAVORING MACHINE OPERATOR [facility] Blood VENOUS LINE / Unknown IVAD (Port) / Unknown 06/17/2024 6:16 AM FLAVORING MACHINE OPERATOR 06/17/2024 6:27 AM FLAVORING MACHINE OPERATOR us Laquita Kelley MD LAB - BLOOD ORDERABLES Final Re sult [facility] [address], [address] [place] [address] * Troponin T, High Sensitivity (06/16/2024 9:33 PM FLAVORING MACHINE OPERATOR) Troponin T, High Sensitivity 8 <=14 ng/L 06/16/2024 10:13 PM FLAVORING MACHINE OPERATOR [facility] Comment: Either a High Sensitivity [...] IVAD (Port) / Unknown 06/16/2024 9:33 PM FLAVORING MACHINE OPERATOR 06/16/2024 9:44 PM FLAVORING MACHINE OPERATOR us Varghesegiulia Schofield MD LAB - BLOOD ORDERABLE S Final Result LABORATORY [facility] [address], [address] [phone] * Chest XR, PA & LAT (06/16/2024 6:09 PM FLAVORING MACHINE OPERATOR) Anatomical Region Laterality Modality Chest Digital Radiogra phy 06/16/2024 6:09 PM FLAVORING MACHINE OPERATOR Impressions 06/16/2024 6:13 PM FLAVORING MACHINE OPERATOR IMPRESSION: Left chest port catheter in stable position. Stable position of right central venous catheter. No airspace opacity, pleural effusion or pneumothorax. Narrative 06/16/2024 6:13 PM FLAVORING MACHINE OPERATOR EXAM: XR CHEST 2 VIEWS LOCATION: [facility] DATE: 06/16/2024 INDICATION: chest pain COMPARISON: 06/12/2024 Procedure Note Richar Haines MD - 06/16/2024 EXAM: XR CHEST 2 VIEWS LOCATION: [facility] DATE: 06/16/2024 INDICATION: chest pain COMPARISON: 06/12/2024 IMPRESSION: Left chest port catheter in stable position. Stable positionof right central venous catheter. No airspace opacity, pleural effusion orpneumothorax. us Abimael Schofield MD IMG DIAGNOSTIC IMAGIN G ORDERABLES Final Result * RBC and Platelet Morphology (06/16/2024 5:37 PM FLAVORING MACHINE OPERATOR) Pathologist [facility] RBC Morphology Confirmed RBC Indices 06/16/2024 7:40 PM FLAVORING MACHINE OPERATOR [facility] Platelet Assessment Automated Count Confirmed. Platelet morphology is normal. Automated Count Confirmed. Platelet morphology is normal. 06/16/2024 7:40 PM FLAVORING MACHINE OPERATOR [facility] Blood BLOOD SPECIMEN / Unknown Venipuncture / Unknown 06/16/2024 5:37 PM FLAVORING MACHINE OPERATOR 06/16/2024 5:46 PM FLAVORING MACHINE OPERATOR [facility] - BLOOD ORDERABLE S Final Result [facility] [address] [facility], [address] [place] [address], [facility] * Adult Type and Screen (06/16/2024 5:37 PM FLAVORING MACHINE OPERATOR) [facility] ABO/RH(D) A POS 06/16/2024 5:08 PM FLAVORING MACHINE OPERATOR BLOOD BANK Antibody Screen Negative Negative 06/16/2024 5:08 PM FLAVORING MACHINE OPERATOR BLOOD BANK Comment:Current antibody scr een is negative. Patient has a history of antibody(ies). A delay in compatible red blood cells may occur. SPECIMEN EXPIRATION DATE [id number] 06/16/2024 5:08 PM FLAVORING MACHINE OPERATOR BLOOD BANK Blood BLOOD SPECIMEN / Unknown Venipuncture / Unknown 06/16/2024 5:37 PM FLAVORING MACHINE OPERATOR 06/16/2024 5:46 PM FLAVORING MACHINE OPERATOR Abimael Schofield MD LAB - BLOOD BANK TEST ORDER Final Result [facility] [address] [place] [address] * (ABNORMAL) CBC with platelets and differential (06/16/2024 5:37 PM FLAVORING MACHINE OPERATOR) [facility] WBC Count 21.0(H) 4.0 - 11.0 10e3/uL 06/16/2024 7:41 PM FLAVORING MACHINE OPERATOR [facility] RBC Count 2.34(L) 3.80 - 5.20 10e6/uL 06/16/2024 7:41 PM FLAVORING MACHINE OPERATOR [facility] Hemoglobin 7.4(L) 11.7 - 15.7 g/dL 06/16/2024 7:41 PM FLAVORING MACHINE OPERATOR [facility] Hematocrit 21.7(L) 35.0 - 47.0 % 06/16/2024 7:41 PM FLAVORING MACHINE OPERATOR [facility] MCV 93 78 - 100 fL 06/16/2024 7:41 PM FLAVORING MACHINE OPERATOR [facility] MCH 31.6 26.5 - 33.0 pg 06/16/2024 7:41 PM FLAVORING MACHINE OPERATOR [facility] MCHC 34.1 31.5 - 36.5 g/dL 06/16/2024 7:41 PM FLAVORING MACHINE OPERATOR [facility] RDW 19.3(H) 10.0 - 15.0 % 06/16/2024 7:41 PM FLAVORING MACHINE OPERATOR [facility] Platelet Count 551(H) 150 - 450 10e3/uL 06/16/2024 7:41 PM FLAVORING MACHINE OPERATOR [facility] % Neutrophils 69 % 06/16/2024 7:41 PM FLAVORING MACHINE OPERATOR [facility] % Lymphocytes 20 % 06/16/2024 7:41 PM FLAVORING MACHINE OPERATOR [facility] % Monocytes 9 % 06/16/2024 7:41 PM FLAVORING MACHINE OPERATOR [facility] % Eosinophils 0 % 06/16/2024 7:41 PM FLAVORING MACHINE OPERATOR [facility] % Basophils 1 % 06/16/2024 7:41 PM FLAVORING MACHINE OPERATOR [facility] % Immature Granulocytes 1 % 06/16/2024 7:41 PM FLAVORING MACHINE OPERATOR [facility] NRBCs per 100 WBC 1(H) <1 /100 025 7:41 PM FLAVORING MACHINE OPERATOR [facility] Absolute Neutrophils 14.5(H) 1.6 - 8.3 10e3/uL 06/16/2024 7:41 PM FLAVORING MACHINE OPERATOR [facility] Absolute Lymphocytes 4.2 0.8 - 5.3 10e3/uL 06/16/2024 7:41 PM FLAVORING MACHINE OPERATOR [facility] Absolute Monocytes 2.0(H) 0.0 - 1.3 10e3/uL 06/16/2024 7:41 PM FLAVORING MACHINE OPERATOR [facility] Absolute Eosinophils 0.0 0.0 - 0.7 10e3/uL 06/16/2024 7:41 PM FLAVORING MACHINE OPERATOR [facility] Absolute Basophils 0.2 0.0 - 0.2 10e3/uL 06/16/2024 7:41 PM FLAVORING MACHINE OPERATOR [facility] Absolute Immature Granulocytes 0.1 <=0.4 10e3/uL 06/16/2024 7:41 PM FLAVORING MACHINE OPERATOR [facility] Absolute NRBCs 0.3 10e3/uL 06/16/2024 7:41 PM FLAVORING MACHINE OPERATOR [facility] Blood BLOOD SPECIMEN / Unknown Venipuncture / Unknown 06/16/2024 5:37 PM FLAVORING MACHINE OPERATOR 06/16/2024 5:46 PM FLAVORING MACHINE OPERATOR us Varghesegiulia Schofield MD LAB - BLOOD ORDERABLE S Final Result [facility] [address], [address] * (ABNORMAL) Prolactin (06/16/2024 5:37 PM FLAVORING MACHINE OPERATOR) Prolactin 55(H) 5 - 23 ng/mL 06/16/2024 6:24 PM FLAVORING MACHINE OPERATOR [facility] Blood BLOOD SPECIMEN / Unknown Venipuncture / Unknown 06/16/2024 5:37 PM FLAVORING MACHINE OPERATOR 06/16/2024 5:46 PM FLAVORING MACHINE OPERATOR us Varghesegiulia Schofield MD LAB - BLOOD ORDERABLE S Final Result Performing Organization Address City/[facility]/ZIP Co de Phone Number [facility] [address], [address] * Blood Culture Peripheral Blood (06/16/2024 5:37 PM FLAVORING MACHINE OPERATOR) Culture No Growth 06/21/2024 6:47 PM FLAVORING MACHINE OPERATOR [facility] Blood BLOOD SPECIMEN / Unknown Venipuncture / Unknown 06/16/2024 5:37 PM FLAVORING MACHINE OPERATOR 06/16/2024 5:47 PM FLAVORING MACHINE OPERATOR us Abimael Schofield MD LAB - MICRO GENERAL O RDERABLES Final Result [facility] Inf. Diseases Diag. Lab [address] [facility], [address] [place] [address] * Troponin T, High Sensitivity (06/16/2024 5:37 PM FLAVORING MACHINE OPERATOR) [facility] Troponin T, High Sensitivity 6 <=14 ng/L 06/16/2024 6:24 PM FLAVORING MACHINE OPERATOR [facility] Comment: Either a High Sensitivity [...] Unknown Venipuncture / Unknown 06/16/2024 5:37 PM FLAVORING MACHINE OPERATOR 06/16/2024 5:46 PM FLAVORING MACHINE OPERATOR us Varghesegiulia Schofield MD LAB - BLOOD ORDERABLE S Final Result [facility] [address], [address] [place] [address] * (ABNORMAL) Comprehensive metabolic panel (06/16/2024 5:37 PM FLAVORING MACHINE OPERATOR) [facility] Sodium 135 135 - 145 mmol/L 06/16/2024 6:24 PM FLAVORING MACHINE OPERATOR [facility] Potassium 4.2 3.4 - 5.3 mmol/L 06/16/2024 6:24 PM FLAVORING MACHINE OPERATOR [facility] Carbon Dioxide (CO2) 18(L) 22 - 29 mmol/L 06/16/2024 6:24 PM FLAVORING MACHINE OPERATOR [facility] Anion Gap 14 7 - 15 mmol/L 06/16/2024 6:24 PM FLAVORING MACHINE OPERATOR [facility] Urea Nitrogen 17.3 6.0 - 20.0 mg/dL 06/16/2024 6:24 PM FLAVORING MACHINE OPERATOR [facility] Creatinine 0.92 0.51 - 0.95 mg/dL 06/16/2024 6:24 PM FLAVORING MACHINE OPERATOR [facility] GFR Estimate 85 >60 mL/min/1.7 3m2 06/16/2024 6:24 PM FLAVORING MACHINE OPERATOR [facility] Comment:eGFR calculated us2020 CKD-EPI equation. Calcium 9.5 8.8 - 10.4 mg/dL 06/16/2024 6:24 PM FLAVORING MACHINE OPERATOR [facility] Chloride 103 98 - 107 mmol/L 06/16/2024 6:24 PM FLAVORING MACHINE OPERATOR [facility] Glucose 122(H) 70 - 99 mg/dL 06/16/2024 6:24 PM FLAVORING MACHINE OPERATOR [facility] Alkaline Phosphatase 105 40 - 150 U/L 06/16/2024 6:24 PM FLAVORING MACHINE OPERATOR [facility] AST 49(H) 0 - 45 U/L 06/16/2024 6:24 PM FLAVORING MACHINE OPERATOR [facility] ALT 32 0 - 50 U/L 06/16/2024 6:24 PM FLAVORING MACHINE OPERATOR [facility] Protein Total 8.6(H) 6.4 - 8.3 g/dL 06/16/2024 6:24 PM FLAVORING MACHINE OPERATOR [facility] Albumin 4.6 3.5 - 5.2 g/dL 06/16/2024 6:24 PM FLAVORING MACHINE OPERATOR [facility] Bilirubin Total 2.0(H) <=1.2 mg/dL 06/16/2024 6:24 PM FLAVORING MACHINE OPERATOR [facility] Blood BLOOD SPECIMEN / Unknown Venipuncture / Unknown 06/16/2024 5:37 PM FLAVORING MACHINE OPERATOR 06/16/2024 5:46 PM FLAVORING MACHINE OPERATOR us Varghesegiulia Schofield MD LAB - BLOOD ORDERABLE S Final Result [facility] [address], [address] [place] [address] * EKG 12 lead (06/16/2024 4:55 PM FLAVORING MACHINE OPERATOR) Systolic Blood Pressure mmHg RADIOLOGY RESULTS Diastolic Blood Pressure mmHg RADIOLOGY RESULTS Ventricular Rate 122 BPM RAD IOLOGY RESULTS Atrial Rate 122 BPM RADIOLOG Y RESULTS [place] Interval 128 ms RADIOLOG Y RESULTS QRS Duration 74 ms RADIOLO GY RESULTS QT 314 ms RADIOLOGY RESULTS QTc 447 ms RADIOLOGY RESULTS P [place] 63 degrees RADIOLOGY RESULTS R AXIS 83 degrees RADIOLOGY RESULTS T [place] 29 degrees RADIOLOGY RESULTS Interpretation ECG Sinus tachycardia Otherwise normal ECG Unconfirmed report - interpretation of this ECG is computer generated - see medical record for final interpretation Confirmed by - EMERGENCY ROOM, PHYSICIAN ([id number]), book or script editor KARLA WILLIAMSON ([id number]) on 06/17/2024 6:56:59 AM RADIOLOGY RESULTS 06/16/2024 4:55 PM FLAVORING MACHINE OPERATOR 06/17/2024 6:56 AM FLAVORING MACHINE OPERATOR us Varghesegiulia Schofield MD ECG ORDERABLES Edite [...] days, Indications: pneumoniaIndications:pneumonia $Given 06/18/2024 8:40 PM FLAVORING MACHINE OPERATOR 200 mg $Given 06/18/2024 12:05 PM FLAVORING MACHINE OPERATOR 200 mg $Given 06/17/2024 9:25 PM FLAVORING MACHINE OPERATOR 200 mg diclofenac (VOLTAREN) 1 % topical gel 2 g 2 g, Topical, 4 TIMES DAILY, First dose on 06/17/24 at 1400, Apply to areas of pain. Use supplied dosing card to measure dose. diphenhydrAMINE (BENADRYL) capsule 25 mg 25 mg, Oral, EVERY 6 HOURS PRN, itching, Starting on Wed06/16/24 at 6 $Given 06/19/2024 12:46 PM FLAVORING MACHINE OPERATOR 25 mg diphenhydrAMINE (BENADRYL) injection 25 mg 25 mg, Intravenous, EVERY 6 HOURS PRN, itching, Starting on Wed06/16/24 at 6 $Given 06/20/2024 8:36 AM FLAVORING MACHINE OPERATOR 25 mg $Given 06/20/2024 2:08 AM FLAVORING MACHINE OPERATOR 25 mg $Given 06/19/2024 8:21 PM FLAVORING MACHINE OPERATOR 25 mg enoxaparin ANTICOAGULANT (LOVENOX) injection 40 mg 40 mg, Subcutaneous, EVERY 24 HOURS, First dose on Wed06/16/24 at 2100, Contact provider if platelet count drops by 50% or more after enoxaparin initiation OR if platelet count falls below 50 x 10e3/uL $Given 06/19/2024 8:29 PM FLAVORING MACHINE OPERATOR 40 mg $Given 06/18/2024 8:01 PM FLAVORING MACHINE OPERATOR 40 mg $Given 06/17/2024 9:32 PM FLAVORING MACHINE OPERATOR 40 mg FLUoxetine (PROzac) capsule 10 mg 10 mg, Oral, DAILY, First dose on Wed06/17/24 at 0800 $Given 06/20/2024 7:54 AM FLAVORING MACHINE OPERATOR 10 mg $Given 06/19/2024 8:54 AM FLAVORING MACHINE OPERATOR 10 mg $Given 06/18/2024 9:54 AM FLAVORING MACHINE OPERATOR 10 mg folic acid (FOLVITE) tablet 1 mg 1 mg, Oral, DAILY, First dose on Wed06/17/24 at 0800 $Given 06/20/2024 7:51 AM FLAVORING MACHINE OPERATOR 1 mg $Given 06/19/2024 8:54 AM FLAVORING MACHINE OPERATOR 1 mg $Given 06/18/2024 8:09 AM FLAVORING MACHINE OPERATOR 1 mg heparin lock flush 10 unit/mL [...] each port lumen $Given 06/20/2024 10:55 AM FLAVORING MACHINE OPERATOR 5 mLs hydromorphone (DILAUDID) injection 2 mg 2 mg, Intravenous, EVERY 1 HOUR PRN, moderate pain, Starting on Wed06/16/24 at 1708, For 3 doses $Given 06/16/2024 8:20 PM FLAVORING MACHINE OPERATOR 2 mg $Given 06/16/2024 5:42 PM FLAVORING MACHINE OPERATOR 2 mg hydromorphone (DILAUDID) injection 2 mg 2 mg, Intravenous, EVERY 3 HOURS, First dose on Wed06/16/24 at 2100, May use concomitant with non-opioid analgesics. $Given 06/16/2024 9:59 PM FLAVORING MACHINE OPERATOR 2 mg hydromorphone (DILAUDID) injection 2 mg 2 mg, Intravenous, EVERY 2 HOURS, First dose (after last modification) on 06/17/24 at 0000, May use concomitant with non-opioid analgesics. $Given 06/20/2024 9:53 AM FLAVORING MACHINE OPERATOR 2 mg $Given 06/20/2024 7:49 AM FLAVORING MACHINE OPERATOR 2 mg $Given 06/20/2024 5:51 AM FLAVORING MACHINE OPERATOR 2 mg hydroxyurea (HYDREA) capsule 1,000 mg 1,000 mg, Oral, 2 TIMES DAILY, First dose on Wed06/16/24 at 2100, Indications: Sickle cell anemia, Do not crush May require hepatic and/or renal dose or frequency adjustments. See reference link for guidelines.Indications:Sickle cell anemia $Given 06/20/2024 7:51 AM FLAVORING MACHINE OPERATOR 1,000 mg $Given 06/19/2024 8:13 PM FLAVORING MACHINE OPERATOR 1,000 mg $Given 06/19/2024 8:55 AM FLAVORING MACHINE OPERATOR 1,000 mg lactated ringers infusion at 75 mL/hr, Intravenous, CONTINUOUS, Starting on Wed06/18/24 at 0845, Until Wed06/20/24 at 0815 Rate/Dose Verify 06/20/2024 8:00 AM FLAVORING MACHINE OPERATOR 75 mL/hr $New Bag 06/19/2024 10:38 PM FLAVORING MACHINE OPERATOR 75 mL/hr Rate/Dose Verify 06/19/2024 8:29 PM FLAVORING MACHINE OPERATOR 75 mL/h r Lidocaine (LIDOCARE) 4 % [...] 06/16/24 at 1958 $Given 06/20/2024 2:08 AM FLAVORING MACHINE OPERATOR 4 mg $Given 06/19/2024 8:15 PM FLAVORING MACHINE OPERATOR 4 mg $Given 06/19/2024 12:46 PM FLAVORING MACHINE OPERATOR 4 mg polyethylene glycol (MIRALAX) Packet 17 [...] each port lumen. $Given 06/20/2024 10:54 AM FLAVORING MACHINE OPERATOR 10 mLs sodium chloride (PF) 0.9% PF flush 3 mL 3 mL, Intracatheter, EVERY 8 HOURS, First dose on Wed06/16/24 at 1710, to lock peripheral IV dormant line $Given 06/20/2024 12:24 AM FLAVORING MACHINE OPERATOR 3 mLs $Given 06/18/2024 6:22 PM FLAVORING MACHINE OPERATOR 3 mLs $Given 06/17/2024 7:34 AM FLAVORING MACHINE OPERATOR 3 mLs sodium chloride (PF) 0.9% PF flush 3 mL 3 mL, Intracatheter, EVERY 1 MIN PRN, line flush, other, to ensure patency or to lock dormant line, Starting on Wed06/16/24 at 1706 sodium chloride (PF) 0.9% PF flush 3 mL 3 mL, Intracatheter, EVERY 8 HOURS, First dose on Wed06/16/24 at 2100, to lock peripheral IV dormant line $Given 06/20/2024 4:41 AM FLAVORING MACHINE OPERATOR 3 mLs $Given 06/19/2024 12:56 PM FLAVORING MACHINE OPERATOR 3 mLs $Given 06/18/2024 12:07 PM FLAVORING MACHINE OPERATOR 3 mLs sodium chloride (PF) 0.9% PF flush 3 mL 3 mL, Intracatheter, EVERY 1 MIN PRN, line flush, other, to ensure patency or to lock dormant line, Starting on Wed06/16/24 at 2058 $Given 06/20/2024 5:5 2 AM FLAVORING MACHINE OPERATOR 3 mLs $Given 06/20/2024 2:59 AM FLAVORING MACHINE OPERATOR 3 mLs $Given 06/20/2024 2:07 AM FLAVORING MACHINE OPERATOR 3 mLs sodium chloride 0.9 % infusion at 75 mL/hr, Intravenous, CONTINUOUS, Starting on Wed06/16/24 at 1710, Until 06/18/24 at 0843 Rate/Dose Verify 06/18/2024 8:07 AM FLAVORING MACHINE OPERATOR 75 mL/hr $New Bag 06/17/2024 9:42 PM FLAVORING MACHINE OPERATOR 75 mL/hr $New Bag 06/17/2024 4:05 PM FLAVORING MACHINE OPERATOR 75 mL/hr sodium chloride 0.9% BOLUS 500 mL Intravenous, 500 mL, ONCE, at 500 mL/hr, Administer over 1 Hours, On Wed06/16/24 at 1710, For 1 dose $New Bag 06/16/2024 5:51 PM FLAVORING MACHINE OPERATOR 500 mLs 500 mL/hr documented in this encounter Active and Recently Administered Medications Times are shown in FLAVORING MACHINE OPERATOR. Scheduled Medication Order 06/18/2024 06/19/2024 06/20/2024 cefpodoxime [...] Zaynab Veliz RN)0204 ($Given - Provider: Zaynab eVliz RN)0409 ($Given - Provider: Amelia Gannon RN)0559 [...] Kiki Caal, RN)1643 ($Given - Provider: Andrea Salinas RN)1830 ($Given - Provider: Kiki Caal, SOFIA)2025 [...] line 0508 (Not Given - Provider: Amelia Gannon RN - Reason: IV Infusing)1207 ($Given - [...] at 0815 0949 ($New Bag - Provider: Teajl Curry RN)1158 (Rate/Dose Verify - Provider: Tejal [...] - Provider: Rene Morocho RN - Comment: television script writer used scheudled dose instead of PRN dose [...] Wed06/16/24 at 2057 0207 ($Given - Provider: Reen Morocho RN)0259 ($Given - Provider: Rene Morocho [...] stools. documented in this encounter Care Teams Alarm Operator Relationship Specialty Start Date End Date No Ref-Primary, Physician PCP - General 03/15/24 06/17/24 Veronica Joseph MD [address] [place] [address] PCP - General Family Medicine 06/18/24 Mor Ramsey Medical Student 04/03/24 Case Samuel MD [address] [place] [address] 484, [address] [place] [address] Assigned Pediatric Specialist Provider 05/18/24 Juhi Benson, RN Specialty Voucher Clerk Hematology & Oncology 05/29/24 documented as of this encounter
--- OUTSIDE RECORDS SUMMARY | 2024-06-22 01:07 | XMS_ITS | Encounter Summary ---
Author Organization [facility] Address [address] [place] [address]. [place] [address] Care Team Providers Care Certified Hearing Instrument Dispenser Name Role Phone No Ref-Primary, Physician Primary Care Provider Mor Ramsey Unavailable Unavailable Case Samuel MD Unavailable [phone] Juhi Benson RN Unavailable Unavailable Reason for Visit * Reason Comments Infusion * Auth/Cert Specialty Diagnoses / Procedures Referred By Shahid t Referred To Contact EMERGENCY MEDICINE Diagnoses Acute chest pain Sickle cell pain crisis (H) Formerly [facility] Emergency Department [address] [place] [address] Phone: tel: Referral ID Status Reason Start Date Expiration Date Visits Re quested Visits Authorized [id number] 1 1 Encounter Details Date Type Department Care Team ([facility] st Contact Info) Description 06/09/2024 11:30 AM EMERGENCY MEDICINE PHYSICIAN Infusion Therapy Visit [facility] [address] [place] [address] Case Samuel MD [address] [facility] [address] [place] [address] Sickle cell pain crisis (H) [...] file Legal Sex Female 8:25 AM EMERGENCY MEDICINE PHYSICIAN Gender Identity Not on file Sexual Orientation Not on file documented as of this encounter Last Filed Vital Signs Vital Sign Reading Time Taken Comments Blood Pressure 123/75 06/09/2024 11:45 AM EMERGENCY MEDICINE PHYSICIAN Pulse 87 06/09/2024 11:45 AM EMERGENCY MEDICINE PHYSICIAN Temperature 37 C (98.6 F) 06/09/2024 11:45 AM EMERGENCY MEDICINE PHYSICIAN Respiratory Rate 16 06/09/2024 11:45 AM EMERGENCY MEDICINE PHYSICIAN Oxygen Saturation 100% 06/09/2024 11:45 AM EMERGENCY MEDICINE PHYSICIAN Inhaled Oxygen Concentration - - Weight - - Height - - Body Mass Index - - documented in this encounter Progress Notes * Lynne Camacho, RN - 06/09/2024 11:30 AM CST Infusion Nursing Note: Gianna Hernández presents today for IV fluids + Dilaudid. Patient seen by provider today: No Pharmacoepidemiologist present during visit today: Not Applicable. Note: Rating pain at an 8 out of 10 upon arrival. 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 Intravenous Access: Implanted Port. Treatment Conditions: [...] all questions answered. AVS to patient via [employer]. Patient will return 06/13 for next appointment. Patient discharged in stable condition accompanied by: self and boyfriend. Departure Mode: Ambulatory. Lynne Camacho RN GENCY MEDICINE PHYSICIAN documented in this encounter Plan of Treatment Not on file documented as of this encounter Goals Goal Patient Goal Type Associated Problems Recent Progress Patient-Stated? Author Pain Management General On track( 025 12:40 PM EMERGENCY MEDICINE PHYSICIAN) Yes Juhi Benson, RN Note: Goal Statement: [...] pain crisis (H) $Given 06/09/2024 2:03 PM EMERGENCY MEDICINE PHYSICIAN 5 mLs hydromorphone (DILAUDID) injection 2 mg 2 mg, Intravenous, EVERY 1 HOUR PRN, severe pain, moderate pain, Starting on Wed06/09/24 at 1111, For 3 dosesIndications:Sickle cell pain crisis (H) $Given 06/09/2024 1:58 PM EMERGENCY MEDICINE PHYSICIAN 2 mg $Given 06/09/2024 12:52 PM EMERGENCY MEDICINE PHYSICIAN 2 mg $Given 06/09/2024 11:53 AM EMERGENCY MEDICINE PHYSICIAN 2 mg lactated ringers BOLUS 1,000 mL Intravenous, 1,000 mL, ONCE, at 500 mL/hr, Administer over 2 Hours, On Wed06/09/24 at 1115, For 1 doseIndications:Sickle cell pain crisis (H) $New Bag 06/09/2024 11:45 AM EMERGENCY MEDICINE PHYSICIAN 1,000 mLs 500 mL/hr sodium chloride (PF) [...] pain crisis (H) $Given 06/09/2024 11:45 AM EMERGENCY MEDICINE PHYSICIAN 20 mLs documented in this encounter Care Teams Certified Hearing Instrument Dispenser Relationship Specialty Start Date End Date No Ref-Primary, Physician PCP - General 03/15/24 06/17/24 oMr Ramsey Medical Student 04/03/24 Case Samuel MD [address] [place] [address] [address] [place] [address] Assigned Pediatric Specialist Provider 05/18/24 Juhi Benson, RN Specialty Regulatory Affairs Director Hematology & Oncology 05/29/24 documented as of this encounter
--- OUTSIDE RECORDS SUMMARY | 2024-06-22 01:07 | XMS_ITS | Clinical Summary ---
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 7C Med Surg [address] [place] [address] Abimael Schofield MD Pal, Suman, MD Duffy, Briar, MD Sickle cell pain crisis (H) Discharge Disposition: Home or Self Care 06/16/2024 Travel 06/15/[address] [phone] Case Samuel MD Refill Request 06/12/2024 6:38 PM CAR BARN LABORER - 06/15/2024 10:48 AM CAR BARN LABORER Hospital Encounter 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); Acute chest pain; Sickle cell pain crisis (H); Pneumonia of right lower lobe due to infectious organism Discharge Disposition: Home or Self Care 06/12/2024 Travel 06/11/2024 9:02 PM CAR BARN LABORER - 06/12/2024 1:57 AM CAR BARN LABORER Emergency [facility] Emergency Room [address] [place] [phone] Iliana Weber MD Sickle cell pain crisis (H) Discharge Disposition: Home or Self Care 06/11/2024 Travel 06/09/2024 11:30 AM CAR BARN LABORER Infusion Therapy Visit [facility] [address] [place] [address] Case Samuel MD Sickle cell pain crisis (H) (Primary Dx) 06/09/2024 Travel 06/07/2024 1:30 PM CAR BARN LABORER Infusion Therapy Visit [facility] [address] [phone] Case Samuel MD Fever (Primary Dx); Sickle cell pain crisis (H) 06/07/2024 10:00 AM CAR BARN LABORER - 06/07/2024 10:45 AM CAR BARN LABORER Emergency [facility] Emergency Room [address] [place] [phone] Bernabe Farley MD Chest pain, unspecified type; Fever, unspecified fever cause; Left against medical advice Discharge Disposition: Home or Self Care 06/07/2024 Travel 06/06/2024 9:41 AM CAR BARN LABORER - 06/06/2024 1:29 PM CAR BARN LABORER Emergency [facility] Emergency Room [address] [place] [phone] Marilia Summers MD Sickle cell pain crisis (H) Discharge Disposition: Home or Self Care 06/05/2024 11:41 AM CAR BARN LABORER - 06/05/2024 3:28 PM CAR BARN LABORER Emergency [facility] Emergency Room [address] [place] [phone] Stiven Madsen MD Palm, Steven J, MD Sickle cell pain crisis (H) Discharge Disposition: Home or Self Care 06/05/2024 Travel 06/05/2024 Velvet Refjelani [facility] [address] [place] [phone] Case Samuel MD Refill Request 06/03/2024 3:22 PM CAR BARN LABORER - 06/03/2024 5:30 PM CAR BARN LABORER Emergency [facility] Emergency Room [address] [place] [phone] Jennifer Bell MD Sickle cell pain crisis (H) Discharge Disposition: Home or Self Care 06/03/2024 Travel 06/01/2024 11:41 PM CAR BARN LABORER - 06/02/2024 2:35 AM CAR BARN LABORER Emergency [facility] Emergency Room [address] [place] [phone] Noel Pinzon MD Sickle cell pain crisis (H) Discharge Disposition: Home or Self Care 06/01/2024 Travel 05/31/2024 9:56 PM CAR BARN LABORER - 06/01/2024 12:46 AM CAR BARN LABORER Emergency [facility] Emergency Room [address] [place] [phone] Carley Riggins MD Sickle cell pain crisis (H) Discharge Disposition: Home or Self Care 05/31/2024 Travel 05/30/2024 8:00 AM CAR BARN LABORER Infusion Therapy Visit [facility] [address] [phone] Case Samuel MD 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); History of transfusion; Sickle cell pain crisis (H) 05/29/2024 11:30 AM CAR BARN LABORER Oncology Visit [facility] [address] [phone] Case Samuel MD Severe episode of recurrent major depressive disorder, 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); History of transfusion; Sickle cell pain crisis (H); 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) 05/29/2024 Orders Only [facility] [address] [phone] Juhi Benson RN Sickle cell pain crisis (H) (Primary Dx); 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) 05/29/2024 Travel 05/28/2024 11:56 PM CAR BARN LABORER - 05/29/2024 3:54 AM [facility] Emergency Room [address] [place] [phone] Lenin Smith MD Sickle cell disease with crisis (H) Discharge Disposition: Home or Self Care 05/28/2024 Travel 05/27/2024 11:58 AM CAR BARN LABORER - 05/27/2024 6:07 PM [facility] Emergency Room [address] [place] [phone] Blas Mcclellan MD [address], Sickle cell disease with crisis (H) Discharge Disposition: Home or Self Care 05/27/2024 Travel 05/25/2024 10:53 AM CAR BARN LABORER - 05/25/2024 4:00 PM [facility] Interventional Radiology [address] [place] [phone] Jaswinder Cooper MD 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) Discharge Disposition: Home or Self Care 05/23/2024 9:03 PM CAR BARN LABORER - 05/23/2024 11:37 PM [facility] Emergency Room [address] [place] [phone] Marilia Summers MD Sickle cell pain crisis (H); Leukocytosis, unspecified type; Left-sided chest wall pain Discharge Disposition: Home or Self Care 05/23/2024 Travel 05/22/2024 3:27 PM CAR BARN LABORER - 05/22/2024 6:55 PM [facility] Emergency Room [address] [place] [phone] Bernabe Farley MD Sickle cell pain crisis (H) Discharge Disposition: Home or Self Care 05/22/2024 [facility] [address] [place] [phone] Case Samuel MD Refill Request 05/22/2024 Travel 05/22/2024 MyC Medical Advice [facility] Interventional Radiology [address] [place] [phone] Yadi Mahan RN 05/20/2024 7:30 AM CAR BARN LABORER - 05/20/2024 11:[address] [facility] Emergency [facility] Emergency Room [address] [place] [phone] Stiven Madsen MD Sickle cell pain crisis (H) Discharge Disposition: Home or Self Care 05/20/2024 Travel 05/19/2024 2:10 AM CAR BARN LABORER - 05/19/2024 6:[address] [facility] Emergency [facility] Emergency Room [address] [place] [phone] Marilia Summers MD Sickle cell disease with crisis (H) Discharge Disposition: Home or Self Care 05/19/2024 Travel 05/16/2024 9:41 PM CAR BARN LABORER - 05/17/2024 12:[address] [facility] Emergency [facility] Emergency Room [address] [place] [phone] Guille Davis DO Sickle cell pain crisis (H) Discharge Disposition: Home or Self Care 05/16/2024 Travel 05/14/2024 10:07 PM CAR BARN LABORER - 05/15/2024 12:[address] [facility] Emergency [facility] Emergency Room [address] [place] [phone] Marguerite Ponce PA-C Sickle cell pain crisis (H) Discharge Disposition: Home or Self Care 05/14/2024 Travel 05/13/2024 3:56 PM CAR BARN LABORER - 05/13/2024 7:[address] [facility] Emergency [facility] Emergency Room [address] [place] [phone] Shaheen Unger MD Sickle cell pain crisis (H) Discharge Disposition: Home or Self Care 05/13/2024 Travel 05/08/2024 3:10 PM CAR BARN LABORER - 05/08/2024 7:54 PM CAR BARN LABORER Emergency [facility] Emergency Room [address] [place] [phone] Polly Alcaraz MD Sickle cell pain crisis (H) Discharge Disposition: Home or Self Care 05/08/2024 Travel 05/08/2024 MyC Refill [facility] [address] [phone] Case Samuel MD Refill Request 05/06/2024 6:34 PM CAR BARN LABORER - 05/06/2024 10:33 PM CAR BARN LABORER Emergency [facility] Emergency Room [address] [place] [phone] Noel Pinzon MD Sickle cell pain crisis (H) Discharge Disposition: Home or Self Care 05/06/2024 Travel 05/05/2024 11:10 AM CAR BARN LABORER - 05/05/2024 2:25 PM CAR BARN LABORER Emergency [facility] Emergency Room [address] [place] [phone] Star Gifford MD Sickle cell pain crisis (H) Discharge Disposition: Home or Self Care 05/05/2024 Travel 05/02/2024 8:23 AM CAR BARN LABORER - 05/02/2024 8:54 AM CAR BARN LABORER Emergency 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 Emergency [facility] Emergency Room [address] [place] [phone] Sandy Joya MD Sickle cell pain crisis (H) Discharge Disposition: Home or Self Care 04/28/2024 Travel 04/26/2024 11:53 PM CAR BARN LABORER - 04/27/2024 2:[address] [facility] Emergency [facility] Emergency Room [address] [place] [phone] Sandy Joya MD Sickle cell pain crisis (H) Discharge Disposition: Home or Self Care 04/26/2024 Travel 04/19/2024 1:48 AM CAR BARN LABORER - 04/19/2024 4:[address] [facility] Emergency [facility] Emergency Room [address] [place] [phone] Juan Rodriguez MD Sickle cell pain crisis (H); Left hip pain; Nondisplaced articular fracture of head of left femur, initial encounter for closed fracture (H) Discharge Disposition: Home or Self Care 04/19/2024 Travel 04/08/2024 9:38 PM CAR BARN LABORER - 04/10/2024 10:[address] [facility] Hospital [facility] [address] [place] [phone] Iliana Weber MD Huynh, Ryan K, MD Raddawi, Kenan, MD Sickle cell pain crisis (H) Discharge Disposition: Home or Self Care 04/08/2024 Travel 04/05/2024 11:32 PM CAR BARN LABORER - 04/06/2024 3:[address] [facility] Emergency [facility] Emergency Room [address] [place] [phone] Guille Davis DO Sickle cell pain crisis (H); Pulmonary nodules Discharge Disposition: Home or Self Care 04/05/2024 Travel 03/29/2024 PRE VISIT [facility] [address] [place] [phone] Provider, Generic External Data *-*INCOMING RECORDS*-* (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 (H) [D57.1]) 03/28/2024 Transcribe Orders GENERIC EXTERNAL DATA DEPARTMENT Provider, Generic External Data 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 (H) (Primary Dx) 03/27/2024 Telephone [facility] [place] [phone] Hector Crabtree, SOFIA Results 03/26/2024 1:08 AM CAR BARN LABORER - 03/26/2024 3:[address] [facility] Emergency [facility] Emergency Room [address] [place] [phone] Sandy Joya MD Sickle cell disease with crisis (H); Pulmonary nodules Discharge Disposition: Home or Self Care 03/25/2024 4:02 AM CAR BARN LABORER - 03/25/2024 6:[address] [facility] Emergency [facility] Emergency Room [address] [place] [phone] Sandy Joya MD Sickle cell disease with [...] on file Legal Sex Female 8:25 AM CAR BARN LABORER Gender Identity Not on file Sexual Orientation Not on file Last Filed Vital Signs Vital Sign Reading Time Taken Comments Blood Pressure 106/62 06/20/2024 6:00 AM CAR BARN LABORER Pulse 78 06/19/2024 2:25 PM CAR BARN LABORER Temperature 36.7 C (98 F) 06/20/2024 6:00 AM CAR BARN LABORER Respiratory Rate 18 06/20/2024 6:00 AM CAR BARN LABORER Oxygen Saturation 99% 06/20/2024 6:00 AM CAR BARN LABORER Inhaled Oxygen Concentration - - Weight 52.2 kg (115 lb) 06/11/2024 8:58 PM CAR BARN LABORER Height 154.9 cm (5' 1) 06/11/2024 8:58 PM CAR BARN LABORER Body Mass Index 21.73 06/11/2024 8:58 PM CAR BARN LABORER Plan of Treatment Health Maintenance Due Date [...] Management General On track( 025 12:40 PM CAR BARN LABORER) Yes Juhi Benson, RN Note: Goal Statement: [...] medication remaining. Medical Devices Implanted Type Area Skin Fitter Device Identifier Shelf Expiration Date Model / Serial / Lot Bard 9.6 Powerflow Apheresis Iv Port-05/25/2024 Implanted:Qty: 1 on 05/25/2024 by Myron Michel MD Port Right: Chest Wall BARD 08/23/2024 [id number] / / [id number] Description:Right chest Wall Apheresis Port 9.6FR (Power) 6frt Smartport-05/25 Implanted:Qty: 1 on 05/25/2024 by Myron Michel MD Port Left: Chest Wall [employer] 09/23/2026 [id number] / / [id number] Description:6FR SL SmartPort (Power - 300psi max) Procedures Procedure Name Priority Date/Time Associated Diagnosis Comments CBC WITH PLATELETS & DIFFERENTIAL STAT 06/20/2024 5:48 AM CAR BARN LABORER CBC WITH PLATELETS AND DIFFERENTIAL STAT 06/20/2024 5:48 AM CAR BARN LABORER RETICULOCYTE COUNT Routine 06/20/2024 5: 48 AM CAR BARN LABORER COMPREHENSIVE METABOLIC PANEL Routine 06/20/2024 5:48 AM CAR BARN LABORER LACTATE DEHYDROGENASE Routine 06/20/2024 5:48 AM CAR BARN LABORER CBC WITH PLATELETS & DIFFERENTIAL STAT 06/19/2024 9:30 AM CAR BARN LABORER RBC AND PLATELET MORPHOLOGY STAT 06/19/2024 9:30 AM CAR BARN LABORER CBC WITH PLATELETS AND DIFFERENTIAL STAT 06/19/2024 9:30 AM CAR BARN LABORER RETICULOCYTE COUNT STAT 06/19/2024 9: 30 AM CAR BARN LABORER COMPREHENSIVE METABOLIC PANEL STAT 06/19/2024 9:30 AM CAR BARN LABORER LACTATE DEHYDROGENASE STAT 06/19/2024 9:30 AM CAR BARN LABORER PLATELET COUNT STAT 06/19/2024 12:17 AM CAR BARN LABORER CREATININE STAT 06/19/2024 12:17 AM CAR BARN LABORER CBC WITH PLATELETS & DIFFERENTIAL STAT 06/18/2024 8:24 AM CAR BARN LABORER DIFFERENTIAL STAT 06/18/2024 8:24 AM CAR BARN LABORER CBC WITH PLATELETS AND DIFFERENTIAL STAT 06/18/2024 8:24 AM CAR BARN LABORER RETICULOCYTE COUNT STAT 06/18/2024 8: 24 AM CAR BARN LABORER COMPREHENSIVE METABOLIC PANEL STAT 06/18/2024 8:24 AM CAR BARN LABORER LACTATE DEHYDROGENASE STAT 06/18/2024 8:24 AM CAR BARN LABORER ROUTINE UA WITH MICROSCOPIC REFLEX TO CULTURE STAT 06/17/2024 1:11 PM CAR BARN LABORER TRANSFUSE RED BLOOD CELLS (UNIT) STAT 06/17/2024 10:26 AM CAR BARN LABORER PREPARE RED BLOOD CELLS (UNIT) STAT 06/17/2024 9:12 AM CAR BARN LABORER TRANSFERRIN Add-On 06/17/2024 6:16 AM CAR BARN LABORER IRON AND IRON BINDING CAPACITY Add-On 06/17/2024 6:16 AM CAR BARN LABORER CBC WITH PLATELETS STAT 06/17/2024 6: 16 AM CAR BARN LABORER BASIC METABOLIC PANEL STAT 06/17/2024 6:16 AM CAR BARN LABORER TROPONIN T, HIGH SENSITIVITY STAT 06/16/2024 9:33 PM CAR BARN LABORER XR CHEST 2 VIEWS STAT 06/16/2024 6:09 PM CAR BARN LABORER ABO/RH TYPE AND SCREEN STAT 5:37 PM CAR BARN LABORER CBC WITH PLATELETS & DIFFERENTIAL STAT 06/16/2024 5:37 PM CAR BARN LABORER BLOOD CULTURE STAT 06/16/2024 5:37 PM CAR BARN LABORER TYPE AND SCREEN, ADULT STAT 5:37 PM CAR BARN LABORER RBC AND PLATELET MORPHOLOGY STAT 06/16/2024 5:37 PM CAR BARN LABORER CBC WITH PLATELETS AND DIFFERENTIAL STAT 06/16/2024 5:37 PM CAR BARN LABORER PROLACTIN STAT 06/16/2024 5:37 PM CAR BARN LABORER TROPONIN T, HIGH SENSITIVITY STAT 06/16/2024 5:37 PM CAR BARN LABORER COMPREHENSIVE METABOLIC PANEL STAT 06/16/2024 5:37 PM CAR BARN LABORER EKG 12-LEAD, TRACING ONLY STAT 06/16/2024 4:55 PM CAR BARN LABORER CBC WITH PLATELETS & DIFFERENTIAL STAT 06/15/2024 6:09 AM CAR BARN LABORER CBC WITH PLATELETS AND DIFFERENTIAL STAT 06/15/2024 6:09 AM CAR BARN LABORER BASIC METABOLIC PANEL STAT 06/15/2024 6:09 AM CAR BARN LABORER XR CHEST PORT 1 VIEW STAT 06/14/2024 8:46 AM CAR BARN LABORER CBC WITH PLATELETS STAT 06/14/2024 7: 08 AM CAR BARN LABORER BASIC METABOLIC PANEL STAT 06/14/2024 7:08 AM CAR BARN LABORER CBC WITH PLATELETS STAT 06/13/2024 6: 32 PM CAR BARN LABORER CBC WITH PLATELETS & DIFFERENTIAL STAT 06/13/2024 6:00 AM CAR BARN LABORER RBC AND PLATELET MORPHOLOGY STAT 06/13/2024 6:00 AM CAR BARN LABORER CBC WITH PLATELETS AND DIFFERENTIAL STAT 06/13/2024 6:00 AM CAR BARN LABORER BASIC METABOLIC PANEL STAT 06/13/2024 5:59 AM CAR BARN LABORER RESPIRATORY PANEL PCR STAT 06/12/2024 9:34 PM CAR BARN LABORER BLOOD CULTURE STAT 06/12/2024 8:46 PM CAR BARN LABORER BLOOD CULTURE STAT 06/12/2024 8:46 PM CAR BARN LABORER XR CHEST 2 VIEWS STAT 06/12/2024 7:38 PM CAR BARN LABORER ABO/RH TYPE AND SCREEN Add-On 7:17 PM CAR BARN LABORER CBC WITH PLATELETS & DIFFERENTIAL STAT 06/12/2024 7:17 PM CAR BARN LABORER TYPE AND SCREEN, ADULT Routine 7:17 PM CAR BARN LABORER RBC AND PLATELET MORPHOLOGY STAT 06/12/2024 7:17 PM CAR BARN LABORER CBC WITH PLATELETS AND DIFFERENTIAL STAT 06/12/2024 7:17 PM CAR BARN LABORER BLOOD GAS VENOUS STAT 06/12/2024 7:17 PM CAR BARN LABORER TROPONIN T, HIGH SENSITIVITY STAT 06/12/2024 7:17 PM CAR BARN LABORER BASIC METABOLIC PANEL STAT 06/12/2024 7:17 PM CAR BARN LABORER INR STAT 06/12/2024 7:17 PM CAR BARN LABORER EKG 12-LEAD, TRACING ONLY STAT 06/12/2024 6:37 PM CAR BARN LABORER ECG 12-LEAD WITH MUSE SJN,SJO,WWH STAT 06/11/2024 9:04 PM CAR BARN LABORER CBC WITH PLATELETS & DIFFERENTIAL Routine 06/07/2024 1:15 PM CAR BARN LABORER Sickle cell pain crisis (H) RBC AND PLATELET MORPHOLOGY Routine 06/07/2024 1:15 PM CAR BARN LABORER Sickle cell pain crisis (H) INFLUENZA A/B, RSV AND SARS-COV2 PCR Routine 06/07/2024 1:15 PM CAR BARN LABORER Fever CBC WITH PLATELETS AND DIFFERENTIAL Routine 06/07/2024 1:15 PM CAR BARN LABORER Sickle cell pain crisis (H) BASIC METABOLIC PANEL Routine 06/07/2024 1:15 PM CAR BARN LABORER Sickle cell pain crisis (H) ECG 12-LEAD WITH MUSE SJN,SJO,WWH STAT 06/05/2024 11:40 AM CAR BARN LABORER ECG 12-LEAD WITH MUSE SJN,SJO,WWH STAT 06/03/2024 3:24 PM CAR BARN LABORER CBC WITH PLATELETS & DIFFERENTIAL STAT 05/31/2024 10:21 PM CAR BARN LABORER RBC AND PLATELET MORPHOLOGY STAT 05/31/2024 10:21 PM CAR BARN LABORER CBC WITH PLATELETS AND DIFFERENTIAL STAT 05/31/2024 10:21 PM CAR BARN LABORER BASIC METABOLIC PANEL STAT 05/31/2024 10:21 PM CAR BARN LABORER RETICULOCYTE COUNT STAT 05/31/2024 10:21 PM CAR BARN LABORER TRANSFUSE RED BLOOD CELLS (UNIT) Routine 05/30/2024 8:28 AM CAR BARN LABORER 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) History of transfusion PREPARE RED BLOOD CELLS (UNIT) Routine 05/29/2024 5:12 PM CAR BARN LABORER ABO/RH TYPE AND SCREEN Routine 11:23 AM CAR BARN LABORER History of transfusion CBC WITH PLATELETS & DIFFERENTIAL Routine 05/29/2024 11:23 AM CAR BARN LABORER BILL ONLY- CAPILLARY ELECTROPHORESIS Routine 05/29/2024 11:23 AM CAR BARN LABORER BILL ONLY- SICKLE SOLUBILITY BILL Routine 05/29/2024 11:23 AM CAR BARN LABORER URINE CULTURE Routine 05/29/2024 11:23 AM CAR BARN LABORER TYPE AND SCREEN, ADULT Add-On 11:23 AM CAR BARN LABORER History of transfusion RBC AND PLATELET MORPHOLOGY Routine 05/29/2024 11:23 AM CAR BARN LABORER CBC WITH PLATELETS AND DIFFERENTIAL Routine 05/29/2024 11:23 AM CAR BARN LABORER GENOTYPE RED BLOOD CELL Routine 05/29/2024 11:23 AM CAR BARN LABORER History of transfusion HEMOGLOBIN EVAL REFLEX TO ELP OR RBC SOLUBILITY Routine 05/29/2024 11:23 AM CAR BARN LABORER FERRITIN Routine 05/29/2024 11:23 AM CAR BARN LABORER ROUTINE UA WITH MICROSCOPIC REFLEX TO CULTURE Routine 05/29/2024 11:23 AM CAR BARN LABORER COMPREHENSIVE METABOLIC PANEL Routine 05/29/2024 11:23 AM CAR BARN LABORER RETICULOCYTE COUNT Routine 05/29/2024 11:23 AM CAR BARN LABORER CBC WITH PLATELETS & DIFFERENTIAL STAT 05/29/2024 12:53 AM CAR BARN LABORER MANUAL DIFFERENTIAL STAT 05/29/2024 12:53 AM CAR BARN LABORER CBC WITH PLATELETS AND DIFFERENTIAL STAT 05/29/2024 12:53 AM CAR BARN LABORER RETICULOCYTE COUNT STAT 05/29/2024 12:53 AM CAR BARN LABORER CBC WITH PLATELETS & DIFFERENTIAL STAT 05/27/2024 3:13 PM CAR BARN LABORER MANUAL DIFFERENTIAL STAT 05/27/2024 3 :13 PM CAR BARN LABORER CBC WITH PLATELETS AND DIFFERENTIAL STAT 05/27/2024 3:13 PM CAR BARN LABORER RETICULOCYTE COUNT STAT 05/27/2024 3: 13 PM CAR BARN LABORER XR CHEST 2 VIEWS STAT 05/27/2024 2:57 PM CAR BARN LABORER COMPREHENSIVE METABOLIC PANEL STAT 05/27/2024 2:30 PM CAR BARN LABORER ECG 12-LEAD WITH MUSE SJN,SJO,WWH STAT 05/27/2024 12:12 PM CAR BARN LABORER IR PROCEDURE NOTE Routine 05/25/2024 2:5 4 PM CAR BARN LABORER IR CHEST PORT PLACEMENT > 5 YRS OF AGE Routine: Next available opening 05/25/2024 2:47 PM CAR BARN LABORER 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) IR CHEST PORT PLACEMENT > 5 YRS OF AGE Priority: 1-2 Weeks 05/25/2024 2:47 PM CAR BARN LABORER 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) HCG QUALITATIVE URINE Routine 05/25/2024 12:[address] CHEST PULMONARY EMBOLISM W CONTRAST STAT 05/23/2024 9:33 PM CAR BARN LABORER N TERMINAL PRO BNP OUTPATIENT STAT 05/23/2024 9:02 PM CAR BARN LABORER TROPONIN T, HIGH SENSITIVITY STAT 05/23/2024 9:02 PM CAR BARN LABORER RETICULOCYTE COUNT STAT 05/23/2024 9: 02 PM CAR BARN LABORER CBC WITH PLATELETS STAT 05/23/2024 9: 02 PM CAR BARN LABORER ECG 12-LEAD WITH MUSE SJN,SJO,WWH STAT 05/23/2024 6:54 PM CAR BARN LABORER XR CHEST 2 VIEWS STAT 05/22/2024 5:19 PM CAR BARN LABORER CBC WITH PLATELETS & DIFFERENTIAL STAT 05/22/2024 3:51 PM CAR BARN LABORER RBC AND PLATELET MORPHOLOGY STAT 05/22/2024 3:51 PM CAR BARN LABORER CBC WITH PLATELETS AND DIFFERENTIAL STAT 05/22/2024 3:51 PM CAR BARN LABORER BASIC METABOLIC PANEL STAT 05/22/2024 3:51 PM CAR BARN LABORER ECG 12-LEAD WITH MUSE SJN,SJO,WWH STAT 05/22/2024 3:14 PM CAR BARN LABORER XR CHEST 2 VIEWS STAT 05/20/2024 9:30 AM CAR BARN LABORER CBC WITH PLATELETS & DIFFERENTIAL STAT 05/20/2024 9:09 AM CAR BARN LABORER RBC AND PLATELET MORPHOLOGY STAT 05/20/2024 9:09 AM CAR BARN LABORER BASIC METABOLIC PANEL STAT 05/20/2024 9:09 AM CAR BARN LABORER EXTRA GREEN TOP (LITHIUM HEPARIN) TUBE STAT 05/20/2024 9:09 AM CAR BARN LABORER EXTRA TUBE STAT 05/20/2024 9:09 AM CAR BARN LABORER CBC WITH PLATELETS AND DIFFERENTIAL STAT 05/20/2024 9:09 AM CAR BARN LABORER RETICULOCYTE COUNT STAT 05/20/2024 9: 09 AM CAR BARN LABORER BASIC METABOLIC PANEL STAT 05/20/2024 8:21 AM CAR BARN LABORER ECG 12-LEAD WITH MUSE SJN,SJO,WWH STAT 05/20/2024 7:36 AM CAR BARN LABORER CBC WITH PLATELETS & DIFFERENTIAL STAT 05/19/2024 3:05 AM CAR BARN LABORER MANUAL DIFFERENTIAL STAT 05/19/2024 3 :05 AM CAR BARN LABORER CBC WITH PLATELETS AND DIFFERENTIAL STAT 05/19/2024 3:05 AM CAR BARN LABORER HCG QUALITATIVE STAT 05/19/2024 3:05 AM CAR BARN LABORER CK TOTAL STAT 05/19/2024 3:05 AM CAR BARN LABORER HEPATIC FUNCTION PANEL STAT 3:05 AM CAR BARN LABORER BASIC METABOLIC PANEL STAT 05/19/2024 3:05 AM CAR BARN LABORER RETICULOCYTE COUNT STAT 05/19/2024 3: 05 AM CAR BARN LABORER CBC WITH PLATELETS & DIFFERENTIAL STAT 05/16/2024 10:17 PM CAR BARN LABORER RBC AND PLATELET MORPHOLOGY STAT 05/16/2024 10:17 PM CAR BARN LABORER CBC WITH PLATELETS AND DIFFERENTIAL STAT 05/16/2024 10:17 PM CAR BARN LABORER BASIC METABOLIC PANEL STAT 05/16/2024 10:17 PM [employer] INFLUENZA A/B, RSV AND SARS-COV2 PCR STAT 05/16/2024 10:00 PM [employer] CBC WITH PLATELETS & DIFFERENTIAL STAT 05/14/2024 10:24 PM [employer] MANUAL DIFFERENTIAL STAT 05/14/2024 10:24 PM [employer] CBC WITH PLATELETS AND DIFFERENTIAL STAT 05/14/2024 10:24 PM [employer] HCG QUALITATIVE STAT 05/14/2024 10:24 PM [employer] TROPONIN T, HIGH SENSITIVITY STAT 05/14/2024 10:24 PM [employer] RETICULOCYTE COUNT STAT 05/14/2024 10:24 PM [employer] HEPATIC FUNCTION PANEL STAT 10:24 PM [employer] BASIC METABOLIC PANEL STAT 05/14/2024 10:24 PM [employer] ECG 12-LEAD WITH MUSE SJN,SJO,WWH STAT 05/14/2024 10:12 PM [employer] EXTRA PURPLE TOP TUBE STAT 05/13/2024 6:17 PM [employer] EXTRA TUBE STAT 05/13/2024 6:17 PM [employer] LACTATE DEHYDROGENASE STAT 05/13/2024 6:16 PM [employer] CBC WITH PLATELETS & DIFFERENTIAL STAT 05/13/2024 4:57 PM [employer] MANUAL DIFFERENTIAL STAT 05/13/2024 4 :57 PM [employer] CBC WITH PLATELETS AND DIFFERENTIAL STAT 05/13/2024 4:57 PM [employer] TROPONIN T, HIGH SENSITIVITY STAT 05/13/2024 4:57 PM [employer] RETICULOCYTE COUNT STAT 05/13/2024 4: 57 PM [employer] HEPATIC FUNCTION PANEL STAT 4:57 PM [employer] BASIC METABOLIC PANEL STAT 05/13/2024 4:57 PM [employer] ECG 12-LEAD WITH MUSE SJN,SJO,WWH STAT 05/13/2024 3:38 PM [employer] INFLUENZA A/B, RSV AND SARS-COV2 PCR STAT 05/08/2024 7:33 PM [employer] XR CHEST 2 VIEWS STAT 05/08/2024 5:27 PM [employer] CBC WITH PLATELETS & DIFFERENTIAL STAT 05/08/2024 4:14 PM [employer] RBC AND PLATELET MORPHOLOGY STAT 05/08/2024 4:14 PM [employer] CBC WITH PLATELETS AND DIFFERENTIAL STAT 05/08/2024 4:14 PM [employer] HCG QUALITATIVE STAT 05/08/2024 4:14 PM [employer] INR STAT 05/08/2024 4:14 PM [employer] TROPONIN T, HIGH SENSITIVITY STAT 05/08/2024 4:14 PM [employer] RETICULOCYTE COUNT STAT 05/08/2024 4: 14 PM [employer] COMPREHENSIVE METABOLIC PANEL STAT 05/08/2024 4:14 PM [employer] ECG 12-LEAD WITH MUSE SJN,SJO,WWH STAT 05/08/2024 3:13 PM [employer] ECG 12-LEAD WITH MUSE SJN,SJO,WWH STAT 05/06/2024 7:51 PM [employer] CBC WITH PLATELETS & DIFFERENTIAL STAT 05/06/2024 7:43 PM [employer] RBC AND PLATELET MORPHOLOGY STAT 05/06/2024 7:43 PM [employer] CBC WITH PLATELETS AND DIFFERENTIAL STAT 05/06/2024 7:43 PM [employer] HEPATIC FUNCTION PANEL STAT 7:43 PM [employer] RETICULOCYTE COUNT STAT 05/06/2024 7: 43 PM [employer] TROPONIN T, HIGH SENSITIVITY STAT 05/06/2024 7:43 PM [employer] BASIC METABOLIC PANEL STAT 05/06/2024 7:43 PM [employer] XR CHEST 2 VIEWS STAT 05/05/2024 12:16 PM [employer] CBC WITH PLATELETS & DIFFERENTIAL STAT 05/05/2024 11:50 AM [employer] RBC AND PLATELET MORPHOLOGY STAT 05/05/2024 11:50 AM [employer] CBC WITH PLATELETS AND DIFFERENTIAL STAT 05/05/2024 11:50 AM [employer] TROPONIN T, HIGH SENSITIVITY STAT 05/05/2024 11:50 AM [employer] RETICULOCYTE COUNT STAT 05/05/2024 11:50 AM [employer] BASIC METABOLIC PANEL STAT 05/05/2024 11:50 AM [employer] ECG 12-LEAD WITH MUSE SJN,SJO,WWH STAT 05/05/2024 11:03 AM [employer] CBC WITH PLATELETS & DIFFERENTIAL STAT 04/28/2024 1:50 AM [employer] VITAMIN D DEFICIENCY SCREENING Add-On 04/28/2024 1:50 AM [employer] Sickle cell pain crisis (H) MANUAL DIFFERENTIAL STAT 04/28/2024 1 :50 AM [employer] CBC WITH PLATELETS AND DIFFERENTIAL STAT 04/28/2024 1:50 AM [employer] RETICULOCYTE COUNT STAT 04/28/2024 1: 50 AM [employer] COMPREHENSIVE METABOLIC PANEL STAT 04/28/2024 1:50 AM [employer] CBC WITH PLATELETS & DIFFERENTIAL STAT 04/27/2024 12:23 AM [employer] RBC AND PLATELET MORPHOLOGY STAT 04/27/2024 12:23 AM [employer] CBC WITH PLATELETS AND DIFFERENTIAL STAT 04/27/2024 12:23 AM [employer] RETICULOCYTE COUNT STAT 04/27/2024 12:23 AM [employer] COMPREHENSIVE METABOLIC PANEL STAT 04/27/2024 12:[address] PELVIS BONE WO CONTRAST STAT 04/19/2024 3:22 AM [employer] HCG QUALITATIVE URINE STAT 04/19/2024 2:17 AM [employer] ROUTINE UA WITH MICROSCOPIC REFLEX TO CULTURE STAT 04/19/2024 2:16 AM [employer] CBC WITH PLATELETS & DIFFERENTIAL STAT 04/19/2024 2:11 AM [employer] MANUAL DIFFERENTIAL STAT 04/19/2024 2 :11 AM [employer] CBC WITH PLATELETS AND DIFFERENTIAL STAT 04/19/2024 2:11 AM [employer] RETICULOCYTE COUNT STAT 04/19/2024 2: 11 AM [employer] BASIC METABOLIC PANEL STAT 04/19/2024 2:11 AM [employer] CBC WITH PLATELETS & DIFFERENTIAL Routine 04/10/2024 5:35 AM [employer] CBC WITH PLATELETS AND DIFFERENTIAL Routine 04/10/2024 5:35 AM [employer] CBC WITH PLATELETS STAT 04/09/2024 6: 13 AM [employer] BASIC METABOLIC PANEL STAT 04/09/2024 6:13 AM [employer] CBC WITH PLATELETS & DIFFERENTIAL STAT 04/08/2024 10:22 PM [employer] EXTRA RED TOP TUBE STAT 04/08/2024 10:22 PM [employer] EXTRA BLUE TOP TUBE STAT 04/08/2024 10:22 PM [employer] CBC WITH PLATELETS AND DIFFERENTIAL STAT 04/08/2024 10:22 PM [employer] EXTRA TUBE STAT 04/08/2024 10:22 PM [employer] BASIC METABOLIC PANEL STAT 04/08/2024 10:22 PM [employer] RETICULOCYTE COUNT STAT 04/08/2024 10:22 PM [employer] ECG 12-LEAD WITH MUSE SJN,SJO,WWH STAT 04/08/2024 9:[address] CHEST PULMONARY EMBOLISM W CONTRAST STAT 04/06/2024 2:22 AM [employer] D DIMER QUANTITATIVE STAT 04/06/2024 12:45 AM [employer] TROPONIN T, HIGH SENSITIVITY STAT 04/06/2024 12:45 AM [employer] BASIC METABOLIC PANEL STAT 04/06/2024 12:45 AM [employer] CBC WITH PLATELETS AND DIFFERENTIAL STAT 04/06/2024 12:43 AM [employer] ECG 12-LEAD WITH MUSE SJN,SJO,WWH STAT 04/06/2024 12:41 AM [employer] CBC WITH PLATELETS & DIFFERENTIAL STAT 04/05/2024 11:47 PM [employer] XR CHEST 2 VIEWS STAT 03/26/2024 2:19 AM [employer] CBC WITH PLATELETS & DIFFERENTIAL STAT 03/26/2024 1:54 AM [employer] MANUAL DIFFERENTIAL Routine 03/26/2024 1 :54 AM [employer] CBC WITH PLATELETS AND DIFFERENTIAL STAT 03/26/2024 1:54 AM [employer] HCG QUALITATIVE STAT 03/26/2024 1:54 AM [employer] RETICULOCYTE COUNT STAT 03/26/2024 1: 54 AM [employer] TROPONIN T, HIGH SENSITIVITY STAT 03/26/2024 1:54 AM [employer] COMPREHENSIVE METABOLIC PANEL STAT 03/26/2024 1:54 AM [employer] INR STAT 03/26/2024 1:54 AM [employer] ECG 12-LEAD WITH MUSE SJN,SJO,WWH STAT 03/26/2024 1:13 AM [employer] CBC WITH PLATELETS & DIFFERENTIAL STAT 03/25/2024 4:44 AM [employer] MANUAL DIFFERENTIAL Routine 03/25/2024 4 :44 AM [employer] RBC AND PLATELET MORPHOLOGY STAT 03/25/2024 4:44 AM [employer] CBC WITH PLATELETS AND DIFFERENTIAL STAT 03/25/2024 4:44 AM [employer] RETICULOCYTE COUNT STAT 03/25/2024 4: 44 AM [employer] COMPREHENSIVE METABOLIC PANEL STAT 03/25/2024 4:44 AM [employer] INR STAT 03/25/2024 4:44 AM [employer] from Last 3 Months Results * (ABNORMAL) CBC with platelets and differential (06/20/2024 5:48 AM [employer]) Only the most recent of29 resultswithin the time period is included. Pathologist [facility] WBC Count 9.3 4.0 - 11.0 10e3/uL 06/20/2024 6:05 AM [employer] RBC Count 2.54(L) 3.80 - 5.20 10e6/uL 06/20/2024 6:05 AM [employer] [facility] Hemoglobin 8.0(L) 11.7 - 15.7 g/dL 06/20/2024 6:05 AM [employer] [facility] Hematocrit 23.2(L) 35.0 - 47.0 % 06/20/2024 6:05 AM [employer] [facility] MCV 91 78 - 100 fL 06/20/2024 6:05 AM [employer] MCH 31.5 26.5 - 33.0 pg 06/20/2024 6:05 AM [employer] MCHC 34.5 31.5 - 36.5 g/dL 06/20/2024 6:05 AM [employer] [facility] RDW 18.4(H) 10.0 - 15.0 % 06/20/2024 6:05 AM [employer] Platelet Count 435 150 - 450 10e3/uL 06/20/2024 6:05 AM [employer] % Neutrophils 47 % 06/20/2024 6:05 AM [employer] % Lymphocytes 43 % 06/20/2024 6:05 AM [employer] % Monocytes 6 % 06/20/2024 6:05 AM [employer] % Eosinophils 3 % 06/20/2024 6:05 AM [employer] % Basophils 1 % 06/20/2024 6:05 AM [employer] % Immature Granulocytes 1 % 06/20/2024 6:05 AM [employer] NRBCs per 100 WBC 1(H) <1 /100 025 6:05 AM [employer] [facility] Absolute Neutrophils 4.4 1.6 - 8.3 10e3/uL 06/20/2024 6:05 AM [employer] Absolute Lymphocytes 4.0 0.8 - 5.3 10e3/uL 06/20/2024 6:05 AM [employer] Absolute Monocytes 0.5 0.0 - 1.3 10e3/uL 06/20/2024 6:05 AM [employer] Absolute Eosinophils 0.3 0.0 - 0.7 10e3/uL 06/20/2024 6:05 AM [employer] Absolute Basophils 0.1 0.0 - 0.2 10e3/uL 06/20/2024 6:05 AM [employer] Absolute Immature Granulocytes 0.1 <=0.4 10e3/uL 06/20/2024 6:05 AM [employer] Absolute NRBCs 0.1 10e3/uL 06/20/2024 6:05 AM [employer] Blood (Portacath) IVAD (Port) / Unknown 06/20/2024 5:48 AM [employer] 06/20/2024 5:55 AM [employer] Polly Allen MD LAB - BLOOD ORDER SYD Final Result LABORATORY [facility] Core Lab [address] [facility], [address] * (ABNORMAL) Lactate Dehydrogenase (06/20/2024 5:48 AM [employer]) Only the most recent of4 resultswithin the time period is included. Lactate Dehydrogenase 571(H) 0 - 250 U/L 06/20/2024 6:35 AM [employer] [facility] Blood (Portacath) IVAD (Port) / Unknown 06/20/2024 5:48 AM [employer] 06/20/2024 5:55 AM [employer] Polly Allen MD LAB - BLOOD ORDER SYD Final Result Performing Organization Address [facility] de Phone Number LABORATORY [facility] Core Lab [address] [facility], [address] * (ABNORMAL) Reticulocyte count (06/20/2024 5:48 AM [employer]) Only the most recent of21 resultswithin the time period is included. % Reticulocyte 9.6(H) 0.5 - 2.0 % 06/20/2024 6:37 AM [employer] [facility] Absolute Reticulocyte 0.236(H) 0.025 - 0.095 10e6/uL 06/20/2024 6:37 AM [employer] [facility] Blood (Portacath) IVAD (Port) / Unknown 06/20/2024 5:48 AM [employer] 06/20/2024 5:55 AM [employer] Polly Allen MD LAB - BLOOD ORDER SYD Final Result U LABORATORY [facility] [place] Core Lab [address] [facility], [address] [place] [address], [facility] * (ABNORMAL) Comprehensive metabolic panel (06/20/2024 5:48 AM [employer]) Only the most recent of11 resultswithin the time period is included. Sodium 133(L) 135 - 145 mmol/L 06/20/2024 6:35 AM [employer] [facility] Potassium 4.6 3.4 - 5.3 mmol/L 06/20/2024 6:35 AM [employer] [facility] Carbon Dioxide (CO2) 21(L) 22 - 29 mmol/L 06/20/2024 6:35 AM [employer] [facility] Anion Gap 8 7 - 15 mmol/L 06/20/2024 6:35 AM [employer] Urea Nitrogen 14.6 6.0 - 20.0 mg/dL 06/20/2024 6:35 AM [employer] [facility] Creatinine 0.66 0.51 - 0.95 mg/dL 06/20/2024 6:35 AM [employer] [facility] GFR Estimate >90 >60 mL/min/1.7 3m2 06/20/2024 6:35 AM [employer] [facility] Comment:eGFR calculated 2020 CKD-EPI equation. Calcium 8.7(L) 8.8 - 10.4 mg/dL 06/20/2024 6:35 AM [employer] Chloride 104 98 - 107 mmol/L 06/20/2024 6:35 AM [employer] [facility] Glucose 100(H) 70 - 99 mg/dL 06/20/2024 6:35 AM [employer] [facility] Alkaline Phosphatase 98 40 - 150 U/L 06/20/2024 6:35 AM [employer] [facility] AST 67(H) 0 - 45 U/L 06/20/2024 6:35 AM [employer] ALT 40 0 - 50 U/L 06/20/2024 6:35 AM [employer] Protein Total 7.2 6.4 - 8.3 g/dL 06/20/2024 6:35 AM [employer] Albumin 3.9 3.5 - 5.2 g/dL 06/20/2024 6:35 AM [employer] Bilirubin Total 1.5(H) <=1.2 mg/dL 06/20/2024 6:35 AM [employer] [facility] Blood (Portacath) IVAD (Port) / Unknown 06/20/2024 5:48 AM [employer]ER 06/20/2024 5:55 AM [employer] Polly Allen MD LAB - BLOOD ORDER SYD Final Result [facility] LAB[facility]ATORY [facility] [place] Core Lab [address] [facility], [address] [place] [address] * (ABNORMAL) RBC and Platelet Morphology (06/19/2024 9:30 AM [employer]ER) Only the most recent of15 resultswithin the time period is included. RBC Morphology Confirmed RBC Indices 06/19/2024 11:43 AM [employer] [facility] Platelet Assessment Automated Count Confirmed. Giant platelets are present.(A) Automated Count Confirmed. Platelet morphology is normal. 06/19/2024 11:43 AM [employer] [facility] Giant Platelets Slight(A) None Seen 11:43 AM [employer] [facility] Elliptocytes None Seen None Seen 06/19/2024 11:43 AM [employer] [facility] Polychromasia Slight(A) None Seen 06/19/2024 11:43 AM [employer] [facility] RBC Fragments Slight(A) None Seen 06/19/2024 11:43 AM [employer] [facility] Reactive Lymphocytes Present(A) None Seen 06/19/2024 11:43 AM [employer] [facility] Sickle Cells Moderate(A) None Seen 06/19/2024 11:43 AM [employer] [facility] Smudge Cells Present(A) None Seen 06/19/2024 11:43 AM [employer] [facility] Target Cells Moderate(A) None Seen 06/19/2024 11:43 AM CAR [employer] [facility] Blood CENTRAL VENOUS CATHETER / Unknown VAD(CVC, PICC) / Unknown 06/19/2024 9:30 AM [employer]ER 06/19/2024 9:42 AM [employer] Polly Allen MD LAB - BLOOD ORDER SYD Final Result [facility] [place] Core Lab [address] [facility], [address] * (ABNORMAL) Platelet count (06/19/2024 12:17 AM [employer]ER) Platelet Count 467(H) 150 - 450 10e3/uL 06/19/2024 12:44 AM [employer] [facility] Blood BLOOD SPECIMEN / Unknown Venipuncture / Unknown 06/19/2024 12:17 AM [employer]ER 06/19/2024 12:26 AM [employer]ER us Laquita Kelley MD LAB - BLOOD ORDERABLES Final Re sult Performing Organization Address City/[facility]/ZIP Co de Phone Number [facility]U LABORATORY [facility] Core Lab [address] [facility], [address] * Creatinine (06/19/2024 12:17 AM [employer]ER) Creatinine 0.72 0.51 - 0.95 mg/dL 06/19/2024 12:51 AM [employer] [facility] GFR Estimate >90 >60 mL/min/1.7 3m2 06/19/2024 12:51 AM [employer] LAB[employer] [facility] Comment:eGFR calculated usin 2020 CKD-EPI equation. Blood BLOOD SPECIMEN / Unknown Venipuncture / Unknown 06/19/2024 12:17 AM [employer]ER 06/19/2024 12:26 AM [employer]ER us Laquita Kelley MD LAB - BLOOD ORDERABLES Final Re sult [facility] LAB[facility]ATORY [facility] [place] Core Lab [address] [facility], [address] * (ABNORMAL) Manual Differential (06/18/2024 8:24 AM [employer]ER) % Neutrophils 52 % 06/18/2024 9:35 AM CAR [employer]ARN [employer]ER [facility] % Lymphocytes 39 % 06/18/2024 9:35 AM [employer] % Monocytes 7 % 06/18/2024 9:35 AM [employer] % Eosinophils 3 % 06/18/2024 9:35 AM [employer] % Basophils 0 % 06/18/2024 9:35 AM [employer] [facility] NRBCs per 100 WBC 13(H) <=0 % 06/18/2024 9:35 AM [employer] [facility] Absolute Neutrophils 5.6 1.6 - 8.3 10e3/uL 06/18/2024 9:35 AM [employer] [facility] Absolute Lymphocytes 4.2 0.8 - 5.3 10e3/uL 06/18/2024 9:35 AM [employer] [facility] Absolute Monocytes 0.7 0.0 - 1.3 10e3/uL 06/18/2024 9:35 AM [employer] [facility] Absolute Eosinophils 0.3 0.0 - 0.7 10e3/uL 06/18/2024 9:35 AM [employer] [facility] Absolute Basophils 0.0 0.0 - 0.2 10e3/uL 06/18/2024 9:35 AM [employer] [facility] Absolute NRBCs 1.4(H) <=0.0 10e3/uL 025 9:35 AM [employer] [facility] RBC Morphology Confirmed RBC Indices 06/18/2024 9:35 AM [employer] [facility] Platelet Assessment Automated Count Confirmed. Platelet morphology is normal. Automated Count Confirmed. Platelet morphology is normal. 06/18/2024 9:35 AM [employer]ER [facility] RBC Fragments Slight(A) None Seen 06/18/2024 9:35 AM [employer] [facility] Polychromasia Slight(A) None Seen 06/18/2024 9:35 AM [employer] [facility] Sickle Cells Moderate(A) None Seen 06/18/2024 9:35 AM [employer]ER [facility] Blood BLOOD SPECIMEN / Unknown Venipuncture / Unknown 06/18/2024 8:24 AM [employer]ER 06/18/2024 8:32 AM [employer]ER us Polly Allen MD LAB - BLOOD ORDER SYD Final Result [facility] LAB[facility]ATORY [facility] [place] Core Lab [address] [facility], [address] [place] [address], [facility] * Transfuse red blood cells (unit), Sickle Cell (Hgb S) Negative (06/17/2024 2:33 PM CAR [employer]ER) Only the most recent of2 resultswithin the time period is included. Drake Nina MD BLOOD TRANSFUSION ORDERABLES Final Result * (ABNORMAL) UA with Microscopic reflex to Culture (06/17/2024 1:11 PM [employer]ER) Only the most recent of3 resultswithin the time period is included. Color Urine Light Yellow Colorless, Straw, Light Yellow, Yellow 06/17/2024 1:48 PM CAR [employer]ER [facility] Appearance Urine Clear Clear 06/17/19 1:48 PM [employer] B[employer]ER [facility] Glucose Urine Negative Negative mg/dL 06/17/2024 1:48 PM [employer]ER [facility] Bilirubin Urine Negative Negative 1:48 PM [employer]ER [facility] Ketones Urine Negative Negative mg/dL 06/17/2024 1:48 PM CAR [employer] LAB[employer]ER [facility] Specific [place] Urine 1.009 1.003 - 1.035 06/17/2024 1:48 PM CAR [employer]ARN LAB[employer]ER [facility] Blood Urine Trace(A) Negative 06/17/2024 1:48 PM CAR [employer]ER [facility] pH Urine 6.5 5.0 - 7.0 06/17/2024 1:48 PM [employer]ER [facility] Protein Albumin Urine Negative Negative mg/dL 06/17/2024 1:48 PM [employer]ER [facility] Urobilinogen Urine Normal Normal, 2.0 mg/dL 06/17/2024 1:48 PM [employer]ER [facility] Nitrite Urine Negative Negative 06/17/2024 1:48 PM CAR B[employer]ER [facility] Leukocyte Esterase Urine Small(A) Negative 06/17/2024 1:48 PM CAR B[employer]ER [facility] RBC Urine <1 <=2 /HPF 06/17/2024 1:48 PM CAR B[employer]ER [facility] WBC Urine <1 <=5 /HPF 06/17/2024 1:48 PM [employer] [facility] Squamous Epithelials Urine 3(H) <=1 /HPF 06/17/2024 1:48 PM CAR [employer] LAB[employer]ER [facility] Urine URINE SPECIMEN OBTAINED BY CLEAN CATCH PROCEDURE / Unknown Non-blood Collection / Unknown 06/17/2024 1:11 PM CAR [employer] LAB[employer]ER 06/17/2024 1:38 PM CAR BARN LABORER Narrative [facility] - 06/17/2024 1:48 PM CAR [employer]ER Urine Culture not indicated Polly Allen MD LAB - URINE ORDER SYD Final Result [facility] LABORATORY [facility] [place] Core Lab [address] [facility] [address], [address] [place] [id number] * Prepare red blood cells (unit) (06/17/2024 9:12 AM CAR [employer]ARN LABORER) Only the most recent of2 resultswithin the time period is included. Pathologist [facility] Blood Component Type Red Blood Cells UU BLOOD BANK Product Code [id number] UU BLOO D BANK Unit Status Transfused UU BLOO D BANK Unit Number [id number] UU B LOOD BANK CROSSMATCH COMPATIBLE UU BLOOD BANK CODING SYSTEM [id number] UU BLO OD BANK ISSUE DATE AND TIME [id number] UU BLOOD BANK UNIT ABO/RH A+ UU BLOOD BANK UNIT TYPE ISBT 6200 UU BL OOD BANK 06/17/2024 9:12 AM CAR [employer]ARN LABORER Drake Nina MD BLOOD BANK PRODUCT ORDERABLES Final Result Performing Organization Address [facility] Co de Phone Number BLOOD BANK [address] [place] [address] * (ABNORMAL) Transferrin (06/17/2024 6:16 AM CAR BARN LABORER) Pathologist [facility] Transferrin 100.0(L) 200.0 - 360.0 mg/dL 06/17/2024 9:36 AM CAR BARN LABORER [facility] Blood VENOUS LINE / Unknown IVAD (Port) / Unknown 06/17/2024 6:16 AM [employer] LAB[employer]ER 06/17/2024 6:27 AM CAR [employer]ARN LAB[employer]ER Drake Nina MD LAB - BLOOD ORDERABLES Final Result [facility] LABORATORY [facility] [place] Core Lab [address] [facility], [address] * Iron and iron binding capacity (06/17/2024 6:16 AM CAR BARN LABORER) [facility] Iron 123 37 - 145 ug/dL 06/17/2024 10:02 AM CAR BARN LABORER [facility] Iron Binding Capacity 06/17/2024 10:02 AM CAR BARN LABORER [facility] Comment:Unable to calculate: UIBC or Iron value is outside detectable level. Iron Sat Index 06/17/2024 10:02 AM CAR BARN LABORER [facility] Comment:Unable to calculate: UIBC or Iron value is outside detectable level. Blood VENOUS LINE / Unknown IVAD (Port) / Unknown 06/17/2024 6:16 AM CAR BARN LABORER 06/17/2024 6:27 AM CAR BARN LABORER us Drake Nina MD LAB - BLOOD ORDERABLES Final Result [facility] LABORATORY [facility] Core Lab [address] [facility], [address] * (ABNORMAL) Basic metabolic panel (06/17/2024 6:16 AM CAR BARN LABORER) Only the most recent of20 resultswithin the time period is included. [facility] Sodium 134(L) 135 - 145 mmol/L 06/17/2024 6:55 AM CAR BARN LABORER [facility] Potassium 4.6 3.4 - 5.3 mmol/L 06/17/2024 6:55 AM CAR BARN LABORER [facility] Chloride 105 98 - 107 mmol/L 06/17/2024 6:55 AM [employer] [facility] Carbon Dioxide (CO2) 20(L) 22 - 29 mmol/L 06/17/2024 6:55 AM [employer] [facility] Anion Gap 9 7 - 15 mmol/L 06/17/2024 6:55 AM [employer] [facility] Urea Nitrogen 16.1 6.0 - 20.0 mg/dL 06/17/2024 6:55 AM [employer] [facility] Creatinine 0.90 0.51 - 0.95 mg/dL 06/17/2024 6:55 AM [employer] [facility] GFR Estimate 88 >60 mL/min/1.7 3m2 06/17/2024 6:55 AM [employer] [facility] Comment:eGFR calculated 2020 CKD-EPI equation. Calcium 8.4(L) 8.8 - 10.4 mg/dL 06/17/2024 6:55 AM [employer] [facility] Glucose 95 70 - 99 mg/dL 06/17/2024 6:55 AM [employer] [facility] Blood VENOUS LINE / Unknown IVAD (Port) / Unknown 06/17/2024 6:16 AM [employer] 06/17/2024 6:27 AM [employer] us Laquita Kelley MD LAB - BLOOD ORDERABLES Final Re sult [facility] [place] [facility] [address] [facility], Room [address] [place] [id number] * (ABNORMAL) CBC with platelets (06/17/2024 6:16 AM [employer]) Only the most recent of5 resultswithin the time period is included. WBC Count 14.6(H) 4.0 - 11.0 10e3/uL 06/17/2024 6:38 AM [employer] [facility] RBC Count 1.97(L) 3.80 - 5.20 10e6/uL 06/17/2024 6:38 AM [employer] [facility] Hemoglobin 6.3(LL) 11.7 - 15.7 g/dL 06/17/2024 6:38 AM [employer] [facility] Hematocrit 17.9(L) 35.0 - 47.0 % 06/17/2024 6:38 AM [employer] [facility] MCV 91 78 - 100 fL 06/17/2024 6:38 AM [employer] [facility] MCH 32.0 26.5 - 33.0 pg 06/17/2024 6:38 AM [employer] [facility] MCHC 35.2 31.5 - 36.5 g/dL 06/17/2024 6:38 AM [employer] [facility] RDW 20.1(H) 10.0 - 15.0 % 06/17/2024 6:38 AM [employer] [facility] Platelet Count 468(H) 150 - 450 10e3/uL 06/17/2024 6:38 AM [employer] [facility] Blood VENOUS LINE / Unknown IVAD (Port) / Unknown 06/17/2024 6:16 AM [employer] 06/17/2024 6:27 AM [employer] us Laquita Kelley MD LAB - BLOOD ORDERABLES Final Re sult [facility]ORATORY [facility] [address] [facility], [address] * Troponin T, High Sensitivity (06/16/2024 9:33 PM [employer]) Only the most recent of11 resultswithin the time period is included. [facility] Troponin T, High Sensitivity 8 <=14 ng/L 06/16/2024 10:13 PM CAR [facility]ARN LABOR[facility] LAB[facility]ATORY Comment: Either a High Sensitivity [...] IVAD (Port) / Unknown 06/16/2024 9:33 PM CAR BARN LABORER 06/16/2024 9:44 PM CAR BARN LABORER us Abimael Schofield MD LAB - BLOOD ORDERABLE S Final Result LABORATORY [facility] [address] [facility], [address] [phone] * Chest XR, PA & LAT (06/16/2024 6:09 PM CAR BARN LABORER) Only the most recent of8 resultswithin the time period is included. Anatomical Region Laterality Modality Chest Digital Radiogra phy 06/16/2024 6:09 PM CAR [facility]ARN LABORER Impressions 06/16/2024 6:13 PM [employer] [facility]ARN LABORER IMPRESSION: Left chest port catheter in stable position. Stable position of right central venous catheter. No airspace opacity, pleural effusion or pneumothorax. Narrative 06/16/2024 6:13 PM CAR BARN LABORER EXAM: XR CHEST 2 VIEWS LOCATION: [facility] DATE: 06/16/2024 INDICATION: chest pain COMPARISON: 06/12/2024 Procedure Note Richar Haines MD - 06/16/2024 EXAM: XR CHEST 2 VIEWS LOCATION: [facility] DATE: 06/16/2024 INDICATION: chest pain COMPARISON: 06/12/2024 IMPRESSION: Left chest port catheter in stable position. Stable positionof right central venous catheter. No airspace opacity, pleural effusion orpneumothorax. us Varghesegiulia Schofield MD IMG DIAGNOSTIC IMAGIN G ORDERABLES Final Result * Adult Type and Screen (06/16/2024 5:37 PM CAR [employer]ARN LABORER) Only the most recent of3 resultswithin the time period is included. ABO/RH(D) A POS 06/16/2024 5:08 PM CAR [facility]ARN LABORER U BLOOD BANK Antibody Screen Negative Negative 06/16/2024 5:08 PM CAR BARN LABORER BLOOD BANK Comment:Current antibody scr een is negative. Patient has a history of antibody(ies). A delay in compatible red blood cells may occur. SPECIMEN EXPIRATION DATE [id number] 06/16/2024 5:08 PM CAR BARN LABORER BLOOD BANK Blood BLOOD SPECIMEN / Unknown Venipuncture / Unknown 06/16/2024 5:37 PM CAR BARN LABORER 06/16/2024 5:46 PM CAR BARN LABORER us Varghesegiulia Schofield MD LAB - BLOOD BANK TEST ORDER Final Result BLOOD BANK [address] [place] [address] * (ABNORMAL) Prolactin (06/16/2024 5:37 PM CAR BARN LABORER) Prolactin 55(H) 5 - 23 ng/mL 06/16/2024 6:24 PM [facility] Blood BLOOD SPECIMEN / Unknown Venipuncture / Unknown 06/16/2024 5:37 PM CAR BARN LABORER 06/16/2024 5:46 PM CAR BARN LABORER Varghesegiulia Schofield MD LAB - BLOOD ORDERABLE S Final Result U LABORATORY [facility] [place] [address] [facility], [address] [place] [address] * Blood Culture Peripheral Blood (06/16/2024 5:37 PM CAR BARN LABORER) Only the most recent of3 resultswithin the time period is included. Culture No Growth 06/21/2024 6:47 PM CAR BARN LABORER [facility] IDD LABORATORY Blood BLOOD SPECIMEN / Unknown Venipuncture / Unknown 06/16/2024 5:37 PM CAR BARN LABORER 06/16/2024 5:47 PM CAR BARN LABORER Abimael Schofield MD LAB - MICRO GENERAL O RDERABLES Final Result [facility] LABORATORY [facility] Inf. Diseases Diag. Lab [address] [facility], [address] [place] [address] * EKG 12 lead (06/16/2024 4:55 PM CAR BARN LABORER) Only the most recent of2 resultswithin the time period is included. Systolic Blood Pressure mmHg RADIOLOGY RESULTS Diastolic Blood Pressure mmHg RADIOLOGY RESULTS Ventricular Rate 122 BPM RAD IOLOGY RESULTS Atrial Rate 122 BPM RADIOLOG Y RESULTS DC Interval 128 ms RADIOLOG Y RESULTS QRS Duration 74 ms RADIOLO GY RESULTS QT 314 ms RADIOLOGY RESULTS QTc 447 ms RADIOLOGY RESULTS P [place]conto 63 degrees RADIOLOGY RESULTS R AXIS 83 degrees RADIOLOGY RESULTS T [place] 29 degrees RADIOLOGY RESULTS Interpretation ECG Sinus tachycardia Otherwise normal ECG Unconfirmed report - interpretation of this ECG is computer generated - see medical record for final interpretation Confirmed by - EMERGENCY ROOM, PHYSICIAN ([id number]), photo editor KARLA WILLIAMSON ([id number]) on 06/17/2024 6:56:59 AM RADIOLOGY RESULTS 06/16/2024 4:55 PM CAR BARN LABORER 06/17/2024 6:56 AM CAR BARN LABORER us Abimael Schofield MD ECG ORDERABLES Edite d Result - Final RADIOLOGY RESULTS * XR Chest Port 1 View (06/14/2024 8:46 AM CAR BARN LABORER) Anatomical Region Laterality Modality Chest Digital Radiogra phy Impressions 06/14/2024 8:59 AM CAR BARN LABORER Impression: Further increase in ill-defined opacity projecting over the right lower lung concerning for pneumonia. MARIO ALBERTO BLACKWOOD MD Narrative 06/14/2024 8:59 AM CAR BARN LABORER Exam: XR CHEST PORT 1 VIEW, 06/14/2024 [...] * Respiratory Panel PCR (06/12/2024 9:34 PM CAR BARN LABORER) [facility] Adenovirus Not Detected Not Detected 06/12/2024 11:53 PM CAR BARN LABORER [facility] Coronavirus Not Detected Not Detected 06/12/2024 11:53 PM CAR BARN LABORER [facility] Comment:This test detects Co ronavirus 229E, HKU1, NL63 and OC43 but does not distinguish between them. It does not detect MERS ( Respiratory Syndrome), SARS (Severe Acute Respiratory Syndrome) or 2019-nCoV (Novel 2019) Coronavirus. Human Metapneumovirus Not Detected Not Detected 06/12/2024 11:53 PM CAR BARN LABORER [facility] Human Rhin/Enterovirus Not Detected Not Detected 06/12/2024 11:53 PM CAR BARN LABORER [facility] Influenza A Not Detected Not Detected 06/12/2024 11:53 PM CAR BARN LABORER [facility] Influenza A, H1 Not Detected Not Detected 06/12/2024 11:53 PM CAR BARN LABORER [facility] Influenza A 2009 H1N1 Not Detected Not Detected 06/12/2024 11:53 PM [facility] BARN LABORER [facility] Influenza A, H3 Not Detected Not Detected 06/12/2024 11:53 PM CAR BARN LABORER [facility] Influenza B Not Detected Not Detected 06/12/2024 11:53 PM CAR BARN LABORER [facility] Parainfluenza Virus 1 Not Detected Not Detected 06/12/2024 11:53 PM CAR BARN LABORER [facility] Parainfluenza Virus 2 Not Detected Not Detected 06/12/2024 11:53 PM CAR BARN LABORER [facility] Parainfluenza Virus 3 Not Detected Not Detected 06/12/2024 11:53 PM CAR BARN LABORER [facility] Parainfluenza Virus 4 Not Detected Not Detected 06/12/2024 11:53 PM CAR BARN LABORER [facility] Respiratory Syncytial Virus A Not Detected Not Detected 06/12/2024 11:53 PM CAR BARN LABORER [facility] Respiratory Syncytial Virus B Not Detected Not Detected 06/12/2024 11:53 PM CAR BARN LABORER [facility] Chlamydia Pneumoniae Not Detected Not Detected 06/12/2024 11:53 PM CAR BARN LABORER [facility] Mycoplasma Pneumoniae Not Detected Not Detected 06/12/2024 11:53 PM CAR BARN LABORER [facility] Swab NASOPHARYNGEAL STRUCTURE / Unknown Non-blood Collection / Unknown 06/12/2024 9:34 PM CAR BARN LABORER 06/12/2024 9:47 PM CAR BARN LABORER Narrative [facility] - 06/12/2024 11:53 PM CAR BARN LABORER The ePlex Respiratory Panel is a qualitative nucleic acid, multiplex, in vitro diagnostic test for the simultaneous detection and identification of multiple respiratory viral and bacterial nucleic acids in nasopharyngeal swabs collected in viral transport media from individual exhibiting signs and symptoms of respiratory infection. The assay has received FDA approval for the testing of nasopharyngeal ([employer]UST[employer]ER[employer]) swabs only. This test is used for clinical purposes and should not be regarded as investigational or for research. This laboratory is certified under the Clinical Laboratory Improvement Amendments of 1988 (CLIA-88) as qualified to perform high complexity clinical laboratory testing. Abdelrahman Goddard MD LAB - MICRO GENERAL ORDERABLES Final Result Performing Organization Address City/[facility]/ZIP Co de Phone Number U IDD LABORATORY [facility] Inf. Diseases Diag. Lab [address] [facility], [address] * (ABNORMAL) INR (06/12/2024 7:17 PM CAR BARN LABORER) Only the most recent of4 resultswithin the time period is included. INR 1.37(H) 0.85 - 1.15 06/12/2024 7:54 PM CAR BARN LABORER [facility] Blood BLOOD SPECIMEN / Unknown Venipuncture / Unknown 06/12/2024 7:17 PM CAR BARN LABORER 06/12/2024 7:32 PM CAR BARN LABORER Abdelrahman Goddard MD LAB - BLOOD ORDERABLES Final R esult U LABORATORY [facility] [address] [facility], [address] [place] [phone] [place] [address] * (ABNORMAL) Blood gas venous (06/12/2024 7:17 PM CAR BARN LABORER) pH Venous 7.38 7.32 - 7.43 06/12/2024 7:40 PM CAR BARN LABORER [facility] pCO2 Venous 42 40 - 50 mm Hg 06/12/2024 7:40 PM CAR BARN LABORER [facility] pO2 Venous 35 25 - 47 mm Hg 06/12/2024 7:40 PM CAR BARN LABORER [facility] Bicarbonate Venous 24 21 - 28 mmol/L 06/12/2024 7:40 PM CAR BARN LABORER [facility] Base Excess/Deficit Venous -0.9 -3.0 - 3.0 mmol/L 06/12/2024 7:40 PM CAR BARN LABORER [facility] FIO2 21 JARET 06/12/2024 7:40 PM CAR BARN LABORER [facility] Oxyhemoglobin Venous 61(L) 70 - 75 % 06/12/2024 7:40 PM CAR BARN LABORER [facility] O2 Sat, Venous 63.9(L) 70.0 - 75.0 % 06/12/2024 7:40 PM CAR BARN LABORER [facility] Blood, venous VENOUS LINE / Unknown Venipuncture / Unknown 06/12/2024 7:17 PM CAR BARN LABORER 06/12/2024 7:30 PM CAR BARN LABORER Narrative [facility] LAB[facility] - 06/12/2024 7:40 PM CAR BARN LABORER In healthy individuals, oxyhemoglobin (O2Hb) and oxygen saturation (SO2) are approximately equal. In the presence of dyshemoglobins, oxyhemoglobin can be considerably lower than oxygen saturation. us Abdelrahman Goddard MD LAB - BLOOD ORDERABLES Final R esult [facility] LABORATORY [facility] [address] [facility], Room [address] [id number] * ECG 12-LEAD WITH MUSE (LHE) (06/11/2024 9:04 PM CAR BARN LABORER) Only the most recent of15 resultswithin the time period is included. Systolic Blood Pressure mmHg RADIOLOGY RESULTS Diastolic Blood Pressure mmHg RADIOLOGY RESULTS Ventricular Rate 102 BPM RAD IOLOGY RESULTS Atrial Rate 102 BPM RADIOLOG Y RESULTS DC Interval 158 ms RADIOLOG Y RESULTS QRS Duration 78 ms RADIOLO GY RESULTS QT 348 ms RADIOLOGY RESULTS QTc 453 ms RADIOLOGY RESULTS P [place] 39 degrees RADIOLOGY RESULTS R AXIS 66 degrees RADIOLOGY RESULTS T [place] 33 degrees RADIOLOGY RESULTS Interpretation ECG Sinus tachycardia Nonspecific T wave abnormality Abnormal ECG When compared with ECG of 05-Jun-2024 11:40, No significant change was found Confirmed by SEE ED PROVIDER NOTE FOR, ECG INTERPRETATION (4000), photo editor SELMA GARRISON ([id number]) on 06/11/2024 9:05:27 PM RADIOLOGY RESULTS 06/11/2024 9:04 PM CAR BARN LABORER 06/11/2024 9:05 PM CAR BARN LABORER us Deshawn Arredondo MD ECG ORDERABLES Edited Resu lt - Final RADIOLOGY RESULTS * Influenza A/B, RSV and SARS-CoV2 PCR (COVID-19) Nasopharyngeal (06/07/2024 1:15 PM CAR BARN LABORER) Only the most recent of3 resultswithin the time period is included. Influenza A PCR Negative Negative 06/07/2024 3:32 PM CAR BARN LABORER [facility] Influenza B PCR Negative Negative 06/07/2024 3:32 PM CAR BARN LABORER [facility] RSV PCR Negative Negative 06/07/2024 3:32 PM CAR BARN LABORER [facility] SARS CoV2 PCR Negative Negative 06/07/2024 3:32 PM CAR BARN LABORER [facility] Comment:NEGATIVE: SARS-CoV-2 (COVID-19) RNA not detected, presumed negative. Swab NASOPHARYNGEAL STRUCTURE / Unknown Non-blood Collection / Unknown 06/07/2024 1:15 PM CAR BARN LABORER 06/07/2024 1:36 PM CAR BARN LABORER Narrative [facility] - 06/07/2024 3:32 PM CAR BARN LABORER Testing was performed using the Xpert Xpress CoV2/Flu/RSV Assay on the Divided GeneXpert Instrument. This test should be ordered [...] management. This test was validated by the [facility]. These laboratories are certified under the Clinical Laboratory Improvement Amendments of 1988 (CLIA-88) as qualified to perfom high complexity laboratory testing. Case Samuel MD LAB - MICRO GENERAL ORDER SYD Final Result [facility]AT[facility] Inf. Diseases Diag. Lab [address] [facility], [address] [place] [phone] * HGB Eval Reflex to ELP or RBC Solubility (05/29/2024 11:23 AM CAR BARN LABORER) Alpha Globin (HBA1 and HBA2) DD Bill Billed 05/31/2024 2:46 PM CAR BARN LABORER [facility] Comment: Performed By: [facility] [address] [place], [place] [id number] Sheet Metal Lay Out Worker: Devon Healy MD, PhD CLIA Number: [id number] Blood VENOUS LINE / Unknown IVAD (Port) / Unknown 05/29/2024 11:23 AM CAR BARN LABORER 05/29/2024 11:30 AM CAR BARN LABORER Case Samuel MD LAB CHARGE PERFORMABLES F inal Result Performing Organization Address City/[facility]/ZIP Co de Phone Number [facility] [address] [place] [address], [facility] [phone] * Bill Only- Sickle Solubility Bill (05/29/2024 11:23 AM CAR BARN LABORER) Sickle Solubility Reflex Bill Billed 05/31/2024 2:46 PM CAR B[facility] LABORER [facility] Comment: Performed By: [facility] [address] [place] [address] Sheet Metal Lay Out Worker: Devon Healy MD, PhD CLIA Number: [id number] Blood VENOUS LINE / Unknown IVAD (Port) / Unknown 05/29/2024 11:23 AM CAR BARN LABORER 05/29/2024 11:30 AM CAR BARN LABORER us Case Samuel MD LAB CHARGE PERFORMABLES F inal Result [facility] [address] [place] [address], [facility] [phone] * Genotype Red Blood Cell (05/29/2024 11:23 AM CAR BARN LABORER) See Scanned Result GENOTYPE RED BLOOD CELL-Scanned 05/31/2024 10:16 AM CAR BARN LABORER [facility] Blood VENOUS LINE / Unknown IVAD (Port) / Unknown 05/29/2024 11:23 AM CAR BARN LABORER 05/29/2024 11:29 AM CAR BARN LABORER Case Samuel MD LAB - BLOOD ORDERABLES Fi nal Result Performing Organization Address City/[facility]/ZIP Co de Phone Number [facility] [address] [place] [address], [facility] [phone] * (ABNORMAL) HGB Eval Reflex to ELP or RBC Solubility (05/29/2024 11:23 AM CAR BARN LABORER) Hemoglobin A 15.0(L) 95.0 - 97.9 % 05/31/2024 2:46 PM [facility] B[facility] LABORER [facility] Hemoglobin A2 3.0 2.0 - 3.5 % 05/31/2024 2:46 PM [facility] B[facility] LABORER [facility] Hemoglobin F 10.8(H) 0.0 - 2.1 % 05/31/2024 2:46 PM [facility] B[facility] LABORER [facility] Hemoglobin S 71.2(H) 0.0 - 0.0 % 05/31/2024 2:46 PM [facility] B[facility] LABORER [facility] Hemoglobin C 0.0 0.0 - 0.0 % 05/31/2024 2:46 PM [facility] B[facility] LABORER [facility] Hemoglobin E 0.0 0.0 - 0.0 % 05/31/2024 2:46 PM [facility] B[facility] LABORER [facility] Hemoglobin - Other 0.0 0.0 - 0.0 % 05/31/2024 2:46 PM CAR B[facility] LABORER [facility] Hemoglobin Evaluation See Note 05/31/2024 2:46 PM CAR B[facility] LABORER [facility] Comment: Impression: Hb S present [...] by Alpha Globin (HBA1 and HBA2) Deletion/Duplication ([facility] test #[id number]) should be considered. Hb S/beta-plus thalassemia is typically characterized by more Hb S than Hb A with the presence of microcytosis. If microcytosis is present and Hb S/beta-plus thalassemia is suspected, Beta Globin (HBB) Sequencing ([facility] test #[id number]) is suggested. Hemoglobin analysis should be offered [...] developed and its performance characteristics determined by [facility]. It has not been cleared or approved by the U.S. Food and Drug Administration. This test was performed in a CLIA-certified laboratory and is intended for clinical purposes. Sickle Cell Solubility Reflex Positive(A) 05/31/2024 2:46 PM [facility] LABORER [facility] Comment: INTERPRETIVE INFORMATION: Sickle Cell Solubility Reflex Not Performed: Solubility testing for Hemoglobin S not indicated. 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 Additional charges apply. Conf Previous: Positive for Hemoglobin S by HPLC. Solubility testing performed previously and not repeated with this submission. Hgb Capillary Electrophoresis Reflex Performed 05/31/2024 2:46 PM [facility] LABORER [facility] Comment: INTERPRETIVE INFORMATION: Hgb Capillary Electrophoresis Reflex Not Performed: Confirmation by Capillary Electrophoresis not indicated. Performed: Results confirmed by Capillary Electrophoresis. Additional charges apply. Conf Previous: Capillary Electrophoresis confirmation performed as part of a previous submission. Confirmation not repeated with this submission. Performed By: [facility] [address] [place] [address] Sheet Metal Lay Out Worker: Devon Healy MD, PhD CLIA Number: [id number] Blood VENOUS LINE / Unknown IVAD (Port) / Unknown 05/29/2024 11:23 AM CAR BARN LABORER 05/29/2024 11:30 AM CAR BARN LABORER us Case Samuel MD LAB - BLOOD ORDERABLES Fi nal Result Performing Organization Address City/[facility]/ZIP Co de Phone Number [facility] [address] [place] [address], [facility] [phone] * (ABNORMAL) Ferritin (05/29/2024 11:23 AM CAR BARN LABORER) Ferritin 1,559(H) 6 - 175 ng/mL 05/29/2024 12:43 PM CAR BARN LABORER [facility] - CORE LAB Blood VENOUS LINE / Unknown IVAD (Port) / Unknown 05/29/2024 11:23 AM CAR BARN LABORER 05/29/2024 11:29 AM CAR BARN LABORER us Case Samuel MD LAB - BLOOD ORDERABLES Fi nal Result Performing Organization Address City/[facility] Co de Phone Number [facility] LABORATORY - CORE LAB [facility] [place] - [address] 1[address] [place] [address] * Urine Culture (05/29/2024 11:23 AM CAR BARN LABORER) Culture <10,000 CFU/mL Mixture of Urogenital Vickie 05/30/2024 9:45 AM CAR BARN LABORER [facility] Urine URINE SPECIMEN OBTAINED BY CLEAN CATCH PROCEDURE / Unknown Non-blood Collection / Unknown 05/29/2024 11:23 AM CAR BARN LABORER 05/29/2024 11:41 AM CAR BARN LABORER us Case Samuel MD LAB - MICRO GENERAL ORDER SYD Final Result Performing Organization Address City/[facility]/ZIP Co de Phone Number [facility] Inf. Diseases Diag. Lab [address] [facility], [address] [place] [address] * (ABNORMAL) Manual Differential (05/29/2024 12:53 AM CAR BARN LABORER) Only the most recent of9 resultswithin the time period is included. % Neutrophils 54 % JARET 05/29/2024 1:58 AM [facility] % Lymphocytes 34 % JARET 05/29/2024 1:58 AM [facility] % Monocytes 10 % JARET 05/29/2024 1:58 AM [facility] % Eosinophils 1 % JARET 05/29/2024 1:58 AM [facility] % Basophils 1 % JARET 05/29/2024 1:58 AM [facility] Absolute Neutrophils 8.4(H) 1.6 - 8.3 10e3/uL JARET 05/29/2024 1:58 AM [facility] Absolute Lymphocytes 5.3 0.8 - 5.3 10e3/uL JARET 05/29/2024 1:58 AM [facility] Absolute Monocytes 1.6(H) 0.0 - 1.3 10e3/uL JARET 05/29/2024 1:58 AM [facility] Absolute Eosinophils 0.2 0.0 - 0.7 10e3/uL JARET 05/29/2024 1:58 AM [facility] Absolute Basophils 0.2 0.0 - 0.2 10e3/uL JARET 05/29/2024 1:58 AM [facility] NRBCs per 100 WBC 3 % JARET 05/29/2024 1:58 AM [facility] Absolute NRBCs 0.5 10e3/uL JARET 05/29/2024 1:58 AM [facility] RBC Morphology Confirmed RBC Indices JARET 05/29/2024 1:58 AM [facility] Platelet Assessment Automated Count Confirmed. Platelet morphology is normal. Automated Count Confirmed. Platelet morphology is normal. JARET 05/29/2024 1:58 AM [facility] Polychromasia Moderate(A) None Seen JARET 05/29/2024 1:58 AM [facility] Sickle Cells Moderate(A) None Seen JARET 05/29/2024 1:58 AM [facility] Blood VENOUS LINE / Unknown Venipuncture / Unknown 05/29/2024 12:53 AM CAR BARN LABORER 05/29/2024 12:58 AM CAR BARN LABORER us Lenin Smith MD LAB - BLOOD ORDERABLES Final Result [facility] [address] [place] [address], [facility] * IR Procedure Note (05/25/2024 2:54 PM CAR BARN LABORER) Narrative Myron Michel MD - 05/25/2024 2:54 PM CAR BARN LABORER Myron Michel MD 05/25/2024 2:55 PM [facility] Procedure: IR Procedure Note Date/Time: 05/25/2024 2:54 [...] the procedure a time out was called [place] Protocol: the Joint [employer] [place] Protocol was followed Preparation: Patient was prepped and draped in usual sterile fashion ANESTHESIA Anesthesia: Local infiltration Local Anesthetic: Lidocaine 1% without epinephrine SEDATION Patient Sedated: Yes Sedation Type: Moderate (conscious) sedation Sedation: Fentanyl and midazolam Vital signs: Vital signs monitored during sedation See dictated procedure note for full details. Findings: Successful bilateral port placement apheresis on the right, 6 gabonese smart port on the left Specimens: none Procedural Complications: None Condition: Stable Plan: 1 hour bedrest then okay to discharge PROCEDURE Describe Procedure: Successful bilateral port placement apheresis on the right, 6 gabonese smart port on the left Patient Tolerance: Patient tolerated the procedure well with no immediate complications Length of time physician/provider present for 1:1 monitoring during sedation: 83-97 min us Myron Michel MD PROCEDURE/MINOR SURGICAL ORDERA BLES Final Result * IR Chest Port Placement > 5 Yrs of Age (05/25/2024 2:47 PM CAR BARN LABORER) Only the most recent of2 resultswithin the time period is included. Anatomical Region Laterality Modality Chest Radio Fluoroscop y Impressions 05/25/2024 5:26 PM CAR BARN LABORER IMPRESSION: Insertion of right-sided apheresis chest port, [...] mg Versed Sedation time: 97 minutes ATTENDING [id number] SEDATION TIME: less than 5 minutes. Access [...] placed: BD PowerFlow apheresis port Catheter size (Italian): 9.6 Lumens: Single-lumen Power injectable: Yes Catheter [...] JASWINDER COOPER MD Narrative 05/25/2024 5:26 PM CAR [facility]ARN LABORER PROCEDURE: Venous port placement Procedural Personnel Attending [...] mg Versed Sedation time: 97 minutes ATTENDING [id number] SEDATION TIME: less than 5 minutes. Access [...] placed: BD PowerFlow apheresis port Catheter size (Italian): 9.6 Lumens: Single-lumen Power injectable: Yes Catheter [...] * HCG qualitative urine (05/25/2024 12:03 PM CAR BARN LABORER) Only the most recent of2 resultswithin the time period is included. hCG Urine Qualitative Negative Negative JARET 05/25/2024 12:34 PM CAR BARN LABORER [facility] Comment:This test is for scr eening purposes. Results should be interpreted along with the clinical picture. Confirmation testing is available if warranted by ordering [id number], HCG Quantitative . Urine MID-STREAM URINE SPECIMEN / Unknown Non-blood Collection / Unknown 05/25/2024 12:03 PM CAR BARN LABORER 05/25/2024 12:19 PM CAR BARN LABORER us Jaswinder Cooper MD LAB - URINE ORDERABLES Liss bola Result LABORATORY [facility] Core Lab [address] [facility], [address] [place] [address], [facility] * CT Chest Pulmonary Embolism w Contrast (05/23/2024 9:33 PM CAR BARN LABORER) Only the most recent of2 resultswithin the time period is included. Anatomical Region Laterality Modality Chest, SUBRAD CT BODY, P CT CHEST Computed Tomography 05/23/2024 9:33 PM CAR BARN LABORER Impressions 05/23/2024 10:12 PM CAR [facility]ARN LABORER IMPRESSION: 1. Bilateral pulmonary nodules stable since [...] as noted above. Narrative 05/23/2024 10:12 PM CAR BARN LABORER EXAM: CT CHEST PULMONARY EMBOLISM W CONTRAST LOCATION: [facility] DATE: 05/23/2024 INDICATION: patient with sickle cell. acute chest pain similar to pe in the past. COMPARISON: Chest x-ray 05/22/2024, CTA chest 05/04/2024 and 03/15/2024. Report of CT chest from [facility] from 03/13/2023 is also available. TECHNIQUE: CT [...] CT CHEST PULMONARY EMBOLISM W CONTRAST LOCATION: [facility] DATE: 05/23/2024 INDICATION: patient with sickle cell. acute chest pain similar to pe inthe past. COMPARISON: Chest x-ray 05/22/2024, CTA chest 05/04/2024 and 03/15/2024.Report of CT chest from [facility] from 03/13/2023 is alsoavailable. TECHNIQUE: CT chest [...] terminal pro BNP outpatient (05/23/2024 9:02 PM CAR BARN LABORER) [facility] N Terminal Pro BNP Outpatient 74 0 - 450 pg/mL 05/23/2024 9:39 PM CAR BARN LABORER [facility] Comment: Reference range shown and results [...] Unknown Venipuncture / Unknown 05/23/2024 9:02 PM CAR BARN LABORER 05/23/2024 9:10 PM CAR BARN LABORER us Marilia Summers MD LAB - BLOOD ORDERABLES Final Result [facility] [address] [place] [address] PR[place]PER Munoz [facility], [facility] * Extra Green Top ([place] Heparin) Tube (05/20/2024 9:09 AM CAR BARN LABORER) [facility] Hold Specimen JIC 05/20/2024 10:16 AM CAR BARN LABORER [facility] Blood VENOUS LINE / Unknown Venipuncture / Unknown 05/20/2024 9:09 AM CAR BARN LABORER 05/20/2024 9:14 AM CAR BARN LABORER us Deshawn Arredondo MD LAB - BLOOD ORDERABLES Liss l Result Performing Organization Address City/[facility]/ZIP Co de Phone Number [facility] [address] [place], [place] [address] * (ABNORMAL) Hepatic function panel (05/19/2024 3:05 AM CAR BARN LABORER) Only the most recent of4 resultswithin the time period is included. Pathologist [facility] Protein Total 7.9 6.4 - 8.3 g/dL 05/19/2024 3:37 AM [facility] Albumin 4.3 3.5 - 5.2 g/dL 05/19/2024 3:37 AM [facility] Bilirubin Total 2.6(H) <=1.2 mg/dL 05/19/2024 3:37 AM [facility] Alkaline Phosphatase 128 40 - 150 U/L 05/19/2024 3:37 AM [facility] AST 67(H) 0 - 45 U/L 05/19/2024 3:37 AM [facility] ALT 39 0 - 50 U/L 05/19/2024 3:37 AM [facility] Bilirubin Direct 0.65(H) 0.00 - 0.30 mg/dL 05/19/2024 3:37 AM [facility] Blood VENOUS LINE / Unknown Venipuncture / Unknown 05/19/2024 3:05 AM CAR BARN LABORER 05/19/2024 3:[address] [facility] us Marilia Summers MD LAB - BLOOD ORDERABLES Final Result [facility] [address] [facility] [place], [place] [address] * HCG QUALitative (blood) (05/19/2024 3:05 AM CAR BARN LABORER) Only the most recent of4 resultswithin the time period is included. Pathologist [facility] hCG Serum Qualitative Negative Negative JARET 05/19/2024 3:29 AM CAR BARN LABORER [facility] Comment:This test is for scr eening purposes. Results should be interpreted along with the clinical picture. Confirmation testing is available if warranted by ordering [id number], HCG Quantitative . Blood VENOUS LINE / Unknown Venipuncture / Unknown 05/19/2024 3:05 AM CAR BARN LABORER 05/19/2024 3:18 AM CAR BARN LABORER Narrative [facility] - 05/19/2024 3:29 AM CAR BARN LABORER Lot#: [id number] Exp: 2025-09-28 us Marilia Summers MD LAB - BLOOD ORDERABLES Final Result Performing Organization Address [facility]/ZIP Co de Phone Number [facility] [address] [place] [address] [place] Munoz [facility], [facility] * (ABNORMAL) CK total (05/19/2024 3:05 AM CAR BARN LABORER) CK 240(H) 26 - 192 U/L 05/19/2024 3:37 AM CAR BARN LABORER [facility] Blood VENOUS LINE / Unknown Venipuncture / Unknown 05/19/2024 3:05 AM CAR BARN LABORER 05/19/2024 3:18 AM CAR BARN LABORER us Marilia Summers MD LAB - BLOOD ORDERABLES Final Result Performing Organization Address [facility] Co de Phone Number [address] [place] Munoz [facility], [facility] * Extra Purple Top Tube (05/13/2024 6:17 PM CAR BARN LABORER) Hold Specimen JIC 05/13/2024 7:31 PM CAR BARN LABORER [facility] Blood STRUCTURE OF RIGHT UPPER LIMB / Unknown Venipuncture / Unknown 05/13/2024 6:17 PM CAR BARN LABORER 05/13/2024 6:23 PM CAR BARN LABORER us Shaheen Unger MD LAB - BLOOD ORDERABLES Final Res ult Performing Organization Address [facility]/ZIP Co de Phone Number [facility] [address] [place] [address] PR[place]PER Munoz [address], [place] * (ABNORMAL) Vitamin D deficiency screening (04/28/2024 1:50 AM CAR BARN LABORER) Vitamin D, Total (25-Hydroxy) 8(L) 20 - 50 ng/mL 05/01/2024 6:42 PM CAR BARN LABORER [facility] Comment:severe deficiency Blood BLOOD SPECIMEN / Unknown Venipuncture / Unknown 04/28/2024 1:50 AM CAR BARN LABORER 04/28/2024 1:53 AM CAR BARN LABORER Narrative [facility] - 05/01/2024 6:42 PM CAR BARN LABORER Season, race, dietary intake, and treatment affect the concentration of 76-[id number]-[id number] D. Values may decrease during winter months and increase during summer months. Vitamin D determination is routinely performed by an immunoassay specific for 25 hydroxyvitamin D3. If an individual is on vitamin D2(ergocalciferol) supplementation, please specify 25 [place] vitamin D2 and D3 level determination by LCMSMS test [id number]. us Case Samuel MD LAB - BLOOD ORDERABLES Fi nal Result [facility] [address] [facility], [address] [place] [address] * CT Pelvis Bone wo Contrast (04/19/2024 3:22 AM CAR BARN LABORER) Anatomical Region Laterality Modality Abdomen/Pelvis, SUBRAD CT MS K, UMP CT ABDOMEN PELVIS, SUBRAD CT BODY, RAD CT Computed Tomography 04/19/2024 3:22 AM CAR BARN LABORER Impressions 04/19/2024 4:06 AM CAR BARN LABORER IMPRESSION: 1. Sclerosis involving the left femoral [...] right femoral head. Narrative 04/19/2024 4:06 AM CAR BARN LABORER EXAM: CT PELVIS BONE WO CONTRAST LOCATION: [facility] DATE: 04/19/2024 INDICATION: Eval L hip [...] EXAM: CT PELVIS BONE WO CONTRAST LOCATION: [facility] DATE: 04/19/2024 INDICATION: Eval L hip [...] Extra Red Top Tube (04/08/2024 10:22 PM CAR BARN LABORER) [facility] Signature Hold Specimen [facility] 04/08/2024 11:31 PM CAR BARN LABORER [facility] Blood STRUCTURE OF LEFT UPPER LIMB / Unknown Venipuncture / Unknown 04/08/2024 10:22 PM CAR BARN LABORER 04/08/2024 10:30 PM CAR BARN LABORER Deshawn Arredondo MD LAB - BLOOD ORDERABLES Liss l Result Performing Organization Address City/[facility]/ZIP Co de Phone Number [facility] [address] * Extra Blue Top Tube (04/08/2024 10:22 PM CAR BARN LABORER) [facility] Hold Specimen [facility] 04/08/2024 11:31 PM CAR BARN LABORER [facility] Blood STRUCTURE OF LEFT UPPER LIMB / Unknown Venipuncture / Unknown 04/08/2024 10:22 PM CAR BARN LABORER 04/08/2024 10:30 PM CAR BARN LABORER Deshawn Arredondo MD LAB - BLOOD ORDERABLES Liss l Result [facility] [address] [place] [address], [facility] * (ABNORMAL) D dimer quantitative (04/06/2024 12:45 AM CAR BARN LABORER) [facility] D-Dimer Quantitative 1.25(H) 0.00 - 0.50 ug/mL FEU 04/06/2024 1:06 AM CAR BARN LABORER [facility] Blood BLOOD SPECIMEN / Unknown Venipuncture / Unknown 04/06/2024 12:45 AM CAR BARN LABORER 04/06/2024 12:52 AM CAR BARN LABORER Narrative [facility] - 04/06/2024 1:06 AM CAR BARN LABORER This D-dimer assay is intended for use in conjunction with a clinical pretest probability assessment model to exclude pulmonary embolism (PE) and deep venous thrombosis (DVT) in outpatients suspected of PE or DVT. The cut-off value is 0.50 ug/mL FEU. us Guille Davis DO LAB - BLOOD ORDERABLES Fin al Result [facility] [address] [place] [address], [facility] from Last 3 Months Insurance [place] For more information, please contact: [phone] * Full Code (Latest Code Status on [...] patie nt/ legal decision maker Care Teams Thresher Broomcorn Relationship Specialty Start Date End Date Veronica Joseph MD [address] [place] [address] PCP - General Family Medicine 06/18/24 Mor Ramsey Medical Student 04/03/24 Case Samuel MD [address] [place] [address] [address] [place] [address] Assigned Pediatric Specialist Provider 05/18/24 Juhi Benson, RN Specialty Child Advocate Hematology & Oncology 05/29/24
--- OUTSIDE RECORDS SUMMARY | 2024-06-22 01:07 | XMS_ITS | Encounter Summary ---
Author Organization [place] Address [address] [place] [address]. [place] [address] Care Team Providers Care Diamond Setter Name Role Phone No Ref-Primary, Physician Primary Care Provider Mor Ramsey Unavailable Unavailable Case Samuel MD Unavailable [phone] Juhi Benson RN Unavailable Unavailable Encounter Details [...] in an abandoned building, in an overnight longterm, or couch-surfing.) Yes 04/09/2024 Are you worried [...] on file Legal Sex Female 8:25 AM TATTOO TECHNICIAN Gender Identity Not on file Sexual Orientation Not on file documented as of this encounter Plan of Treatment Not on file documented as of this encounter Goals Goal Patient Goal Type Associated Problems Recent Progress Patient-Stated? Author Pain Management General On track( 025 12:40 PM TATTOO TECHNICIAN) Yes Juhi Benson RN Note: Goal Statement: [...] on filedocumented in this encounter Care Teams Diamond Setter Relationship Specialty Start Date End Date No Ref-Primary, Physician PCP - General 03/15/24 06/17/24 Mor Ramsey Medical Student 04/03/24 Case Samuel MD [address] [place] [address] [address], [address] [place] [address] Assigned Pediatric Specialist Provider 05/18/24 Juhi Benson RN Specialty Row Boss Hoeing Hematology & Oncology 05/29/24 documented as of this encounter
--- OUTSIDE RECORDS SUMMARY | 2024-06-22 01:07 | XMS_ITS | Encounter Summary ---
Author Organization [facility] Address [address] [place] [address]. [place] [address] Care Team Providers Care Bottoming Room Inspector Name Role Phone No Ref-Primary, Physician Primary Care Provider Mor Ramsey Unavailable Unavailable Reason for Visit * Reason Comments Chest Pain Sickle Cell Pain Crisis Encounter Details Date Type Department Care Team (Late st Contact Info) Description 05/08/2024 3:10 PM BUILDING REPAIR MAINTENANCE SUPERVISOR - 05/08/2024 7:54 PM BUILDING REPAIR MAINTENANCE SUPERVISOR Emergency [facility] [place] [address] Polly Alcaraz MD [address] [place] [address] [id number] Sickle cell pain crisis (H) Discharge Disposition: [...] on file Legal Sex Female 8:25 AM BUILDING REPAIR MAINTENANCE SUPERVISOR Gender Identity Not on file Sexual Orientation Not on file documented as of this encounter Last Filed Vital Signs Vital Sign Reading Time Taken Comments Blood Pressure 108/57 05/08/2024 7:30 PM BUILDING REPAIR MAINTENANCE SUPERVISOR Pulse 89 05/08/2024 7:30 PM BUILDING REPAIR MAINTENANCE SUPERVISOR Temperature 36.6 C (97.8 F) 05/08/2024 4:16 PM BUILDING REPAIR MAINTENANCE SUPERVISOR Respiratory Rate 24 05/08/2024 7:30 PM BUILDING REPAIR MAINTENANCE SUPERVISOR Oxygen Saturation 94% 05/08/2024 7:30 PM BUILDING REPAIR MAINTENANCE SUPERVISOR Inhaled Oxygen Concentration - - Weight - - Height - - Body Mass Index - - documented in this encounter Discharge Instructions * Discharge Instructions* Polly Alcaraz MD - 05/08/2024 7:48 PM BUILDING REPAIR MAINTENANCE SUPERVISOR As we discussed is important to check in with your cutting department supervisor tomorrow. They should monitor you closely. I gave you a prescription for a few extra Dilaudid but they should also refill your prescription. As we discussed I am going to see if the viral panel is positive for any viruses otherwise we will start you on antibiotics for possible pneumonia. The cutting department supervisor did not feel that you need tostay in the hospital for this and they did not feel that there were signs of acute chest syndrome at this time. However it is very important you return to the ER if you develop worsening chest pain, shortness of breath, fever, or any new or worsening concerns. DING REPAIR MAINTENANCE SUPERVISOR DING REPAIR MAINTENANCE SUPERVISOR * Attachments The following attachments cannot be sent through Care Everywhere. * Sickle Cell Crisis (Guyanese) documented in this encounter Medications at Time [...] with hematology at the after moving to [place]. She continues to experience pain and ran [...] Dr. Rose with Hematology Oncology at the [facility] where the patient follows. He does not [...] this. He will discuss with her primary cutting department supervisor and have them check in with her tomorrow for close follow up. Patient stated that she could not wait for viral testing to result as she needed childcare attendant and I discussed I would contact her [...] reviewed?: Documented in chart and Outpatient Record: [facility] on 05/08/24 Care impacted by [...] with other provider:Did you involve another provider (sap bw consultant, , pharmacy, etc.)?: I discussed the [...] VISIT New Prescriptions No medications on file [facility] Patient information was obtained from: patient Use of Solar Technician: N/A Gianna Hernández is a 29 [...] is scheduled for a follow up with cutting department supervisor on 05/29/24. She reports she is also awaiting a call from them about placement of 2 ports. 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 Recently moved to [place] from [place], [place]. She is 1 of 9 [...] Social Connections: Socially Integrated (03/28/2024) [facility] Do you often [...] Rate 103 BPM Atrial Rate [address] Interval 144 ms QRS Duration 78 ms QT 332 ms QTc 434 ms P [place] 39 degrees R AXIS 65 degrees T [place] 24 degrees Interpretation ECG Sinus tachycardia Nonspecific T wave abnormality Abnormal ECG When compared with ECG of 06-May-2024 19:51, No significant change was found Confirmed by SEE ED PROVIDER NOTE FOR, ECG INTERPRETATION (4000), city editor SELMA GARRISON ([id number]) on 05/08/2024 4:18:52 PM RADIOLOGY: Reviewed all pertinent imaging. Please see official radiology report. Chest XR, PA & LAT (Results Pending) EKG: Performed at: 3:13 PM Impression: Sinus tachycardia No evidence of acute ischemia. When compared with ECG of 06-May-2024 19:51, No significant change was found Rate: 103 BPM Rhythm: sinus tachycardia [place]: [address] CT Interval: 144 ms QRS Interval: 78 ms [...] accordance with my direction. Polly Alcaraz MD [facility] Former[facility] [address] Polly Alcaraz MD 05/29/24 0213 DING REPAIR MAINTENANCE SUPERVISOR * Tk Quiroz RN - 05/08/2024 3:12 [...] WDL WDL Cognitive/Neuro/Behavioral WDL Cognitive/Neuro/Behavioral WDL WDL DING REPAIR MAINTENANCE SUPERVISOR documented in this encounter Plan of Treatment Not on file documented as of this encounter Goals Goal Patient Goal Type Associated Problems Recent Progress Patient-Stated? Author Pain Management General On track( 025 12:40 PM BUILDING REPAIR MAINTENANCE SUPERVISOR) Yes Juhi Benson, RN Note: Goal Statement: [...] AND SARS-COV2 PCR STAT 05/08/2024 7:33 PM BUILDING REPAIR MAINTENANCE SUPERVISOR XR CHEST 2 VIEWS STAT 05/08/2024 5:27 PM BUILDING REPAIR MAINTENANCE SUPERVISOR RBC AND PLATELET MORPHOLOGY STAT 05/08/2024 4:14 PM BUILDING REPAIR MAINTENANCE SUPERVISOR CBC WITH PLATELETS AND DIFFERENTIAL STAT 05/08/2024 4:14 PM BUILDING REPAIR MAINTENANCE SUPERVISOR TROPONIN T, HIGH SENSITIVITY STAT 05/08/2024 4:14 PM BUILDING REPAIR MAINTENANCE SUPERVISOR CBC WITH PLATELETS & DIFFERENTIAL STAT 05/08/2024 4:14 PM BUILDING REPAIR MAINTENANCE SUPERVISOR RETICULOCYTE COUNT STAT 05/08/2024 4: 14 PM BUILDING REPAIR MAINTENANCE SUPERVISOR INR STAT 05/08/2024 4:14 PM BUILDING REPAIR MAINTENANCE SUPERVISOR HCG QUALITATIVE STAT 05/08/2024 4:14 PM BUILDING REPAIR MAINTENANCE SUPERVISOR COMPREHENSIVE METABOLIC PANEL STAT 05/08/2024 4:14 PM BUILDING REPAIR MAINTENANCE SUPERVISOR ECG 12-LEAD WITH MUSE SJN,SJO,WW STAT 05/08/2024 3:13 PM BUILDING REPAIR MAINTENANCE SUPERVISOR documented in this encounter Results * Influenza A/B, RSV and SARS-CoV2 PCR (COVID-19) Nasopharyngeal (05/08/2024 7:33 PM BUILDING REPAIR MAINTENANCE SUPERVISOR) Influenza A PCR Negative Negative 05/08/2024 8:18 PM BUILDING REPAIR MAINTENANCE SUPERVISOR [facility] Influenza B PCR Negative Negative 05/08/2024 8:18 PM BUILDING REPAIR MAINTENANCE SUPERVISOR [facility] RSV PCR Negative Negative 05/08/2024 8:18 PM BUILDING REPAIR MAINTENANCE SUPERVISOR [facility] SARS CoV2 PCR Negative Negative 05/08/2024 8:18 PM BUILDING REPAIR MAINTENANCE SUPERVISOR [facility] Comment:NEGATIVE: SARS-CoV-2 (COVID-19) RNA not detected, presumed negative. Swab NASOPHARYNGEAL STRUCTURE / Unknown Non-blood Collection / Unknown 05/08/2024 7:33 PM BUILDING REPAIR MAINTENANCE SUPERVISOR 05/08/2024 7:37 PM BUILDING REPAIR MAINTENANCE SUPERVISOR Narrative [facility] - 05/08/2024 8:18 PM BUILDING REPAIR MAINTENANCE SUPERVISOR Testing was performed using the Xpert Xpress CoV2/Flu/RSV Assay on the xkotoXpert Instrument. This test should be ordered for [...] management. This test was validated by the [facility] [employer]. These laboratories are certified under the Clinical Laboratory Improvement Amendments of 1988 (CLIA-88) as qualified to perfom high complexity laboratory testing. Polly Alcaraz MD LAB - MICRO GENERAL ORDERAB LES Final Result [facility] [address] [place] [address], [place] * Chest XR, PA & LAT (05/08/2024 5:27 PM BUILDING REPAIR MAINTENANCE SUPERVISOR) Anatomical Region Laterality Modality Chest Digital Radiogra phy 05/08/2024 5:27 PM BUILDING REPAIR MAINTENANCE SUPERVISOR Impressions 05/08/2024 5:41 PM BUILDING REPAIR MAINTENANCE SUPERVISOR IMPRESSION: Increasing bilateral reticulonodular opacities. These most likely represent either infection or edema. No pleural effusion. The cardiac silhouette and vasculature are normal. Narrative 05/08/2024 5:41 PM BUILDING REPAIR MAINTENANCE SUPERVISOR EXAM: XR CHEST 2 VIEWS LOCATION: [facility] DATE: 05/08/2024 INDICATION: chest pain, sickle cell COMPARISON: 05/05/2024 Procedure Note Korey Muse MD - 05/08/2024 EXAM: XR CHEST 2 VIEWS LOCATION: [facility] DATE: 05/08/2024 INDICATION: chest pain, sickle cell COMPARISON: 05/05/2024 IMPRESSION: Increasing bilateral reticulonodular opacities. These mostlikely represent either infection or edema. No pleural effusion. Thecardiac silhouette and vasculature are normal. Polly Alcaraz MD IMG DIAGNOSTIC IMAGING ORDE SHARMAINE Final Result * (ABNORMAL) RBC and Platelet Morphology (05/08/2024 4:14 PM BUILDING REPAIR MAINTENANCE SUPERVISOR) RBC Morphology Confirmed RBC Indices 05/08/2024 5:24 PM BUILDING REPAIR MAINTENANCE SUPERVISOR [facility] Platelet Assessment Automated Count Confirmed. Platelet morphology is normal. Automated Count Confirmed. Platelet morphology is normal. JARET 05/08/2024 5:24 PM BUILDING REPAIR MAINTENANCE SUPERVISOR [facility] Polychromasia Slight(A) None Seen JARET 05/08/2024 5:24 PM BUILDING REPAIR MAINTENANCE SUPERVISOR [facility] Sickle Cells Moderate(A) None Seen JARET 05/08/2024 5:24 PM BUILDING REPAIR MAINTENANCE SUPERVISOR [facility] Target Cells Slight(A) None Seen [facility] 05/08/2024 5:24 PM BUILDING REPAIR MAINTENANCE SUPERVISOR [facility] Blood VENOUS LINE / Unknown Venipuncture / Unknown 05/08/2024 4:14 PM BUILDING REPAIR MAINTENANCE SUPERVISOR 05/08/2024 4:21 PM BUILDING REPAIR MAINTENANCE SUPERVISOR Polly Alcaraz MD LAB - BLOOD ORDERABLES Liss l Result [facility] [address] [place] [place] [address], [place] * (ABNORMAL) CBC with platelets and differential (05/08/2024 4:14 PM BUILDING REPAIR MAINTENANCE SUPERVISOR) [facility] WBC Count 16.6(H) 4.0 - 11.0 10e3/uL 05/08/2024 5:24 PM [facility] RBC Count 2.62(L) 3.80 - 5.20 10e6/uL 05/08/2024 5:24 PM [facility] Hemoglobin 8.5(L) 11.7 - 15.7 g/dL 05/08/2024 5:24 PM [facility] Hematocrit 24.3(L) 35.0 - 47.0 % 05/08/2024 5:24 PM [facility] MCV 93 78 - 100 fL 05/08/2024 5:24 PM [facility] MCH 32.4 26.5 - 33.0 pg 05/08/2024 5:24 PM [facility] MCHC 35.0 31.5 - 36.5 g/dL 05/08/2024 5:24 PM [facility] RDW 22.9(H) 10.0 - 15.0 % 05/08/2024 5:24 PM [facility] Platelet Count 503(H) 150 - 450 10e3/uL 05/08/2024 5:24 PM [facility] % Neutrophils 64 % 05/08/2024 5:24 PM [facility] % Lymphocytes 23 % 05/08/2024 5:24 PM [facility] % Monocytes 11 % 05/08/2024 5:24 PM [facility] % Eosinophils 0 % 05/08/2024 5:24 PM [facility] % Basophils 1 % 05/08/2024 5:24 PM [facility] % Immature Granulocytes 1 % 05/08/2024 5:24 PM [facility] NRBCs per 100 WBC 2(H) <1 /100 025 5:24 PM [facility] Absolute Neutrophils 10.6(H) 1.6 - 8.3 10e3/uL 05/08/2024 5:24 PM [facility] Absolute Lymphocytes 3.8 0.8 - 5.3 10e3/uL 05/08/2024 5:24 PM [facility] Absolute Monocytes 1.8(H) 0.0 - 1.3 10e3/uL 05/08/2024 5:24 PM BUILDING REPAIR MAINTENANCE SUPERVISOR [facility] Absolute Eosinophils 0.1 0.0 - 0.7 10e3/uL 05/08/2024 5:24 PM BUILDING REPAIR MAINTENANCE SUPERVISOR [facility] Absolute Basophils 0.1 0.0 - 0.2 10e3/uL 05/08/2024 5:24 PM BUILDING REPAIR MAINTENANCE SUPERVISOR [facility] Absolute Immature Granulocytes 0.2 <=0.4 10e3/uL 05/08/2024 5:24 PM BUILDING REPAIR MAINTENANCE SUPERVISOR [facility] Absolute NRBCs 0.3 10e3/uL 05/08/2024 5:24 PM BUILDING REPAIR MAINTENANCE SUPERVISOR [facility] Blood VENOUS LINE / Unknown Venipuncture / Unknown 05/08/2024 4:14 PM BUILDING REPAIR MAINTENANCE SUPERVISOR 05/08/2024 4:21 PM BUILDING REPAIR MAINTENANCE SUPERVISOR Polly Alcaraz MD LAB - BLOOD ORDERABLES Liss l Result Performing Organization Address [facility]/ZIP Co de Phone Number [facility] [address] [place], [place] [address] [place] [address], [facility] * HCG qualitative Blood (05/08/2024 4:14 PM BUILDING REPAIR MAINTENANCE SUPERVISOR) Pathologist [facility] hCG Serum Qualitative Negative Negative JARET 05/08/2024 4:54 PM BUILDING REPAIR MAINTENANCE SUPERVISOR [facility] Comment:This test is for scr eening purposes. Results should be interpreted along with the clinical picture. Confirmation testing is available if warranted by ordering [id number], HCG Quantitative . Blood VENOUS LINE / Unknown Venipuncture / Unknown 05/08/2024 4:14 PM BUILDING REPAIR MAINTENANCE SUPERVISOR 05/08/2024 4:21 PM BUILDING REPAIR MAINTENANCE SUPERVISOR Polly Alcaraz MD LAB - BLOOD ORDERABLES Liss l Result Performing Organization Address City/[facility]/ZIP Co de Phone Number [facility] [address] [place] [address], [facility] * (ABNORMAL) INR (05/08/2024 4:14 PM BUILDING REPAIR MAINTENANCE SUPERVISOR) Pathologist [facility] INR 1.36(H) 0.85 - 1.15 05/08/2024 4:34 PM BUILDING REPAIR MAINTENANCE SUPERVISOR [facility] Blood VENOUS LINE / Unknown Venipuncture / Unknown 05/08/2024 4:14 PM BUILDING REPAIR MAINTENANCE SUPERVISOR 05/08/2024 4:21 PM BUILDING REPAIR MAINTENANCE SUPERVISOR Polly Alcaraz MD LAB - BLOOD ORDERABLES Liss l Result Performing Organization Address [facility] de Phone Number [facility] [address] [place] [address] [place] [address], [facility] * Troponin T, High Sensitivity (05/08/2024 4:14 PM BUILDING REPAIR MAINTENANCE SUPERVISOR) [facility] Troponin T, High Sensitivity <6 <=14 ng/L 05/08/2024 4:41 PM BUILDING REPAIR MAINTENANCE SUPERVISOR [facility] Comment: Either a High Sensitivity [...] Unknown Venipuncture / Unknown 05/08/2024 4:14 PM BUILDING REPAIR MAINTENANCE SUPERVISOR 05/08/2024 4:21 PM BUILDING REPAIR MAINTENANCE SUPERVISOR Polly Alcaraz MD LAB - BLOOD ORDERABLES Liss l Result Performing Organization Address [facility] Co de Phone Number [facility] [address] [place] [address] [place] [address], [facility] * (ABNORMAL) Reticulocyte count (05/08/2024 4:14 PM BUILDING REPAIR MAINTENANCE SUPERVISOR) % Reticulocyte 21.6(H) 0.5 - 2.0 % 05/08/2024 4:25 PM BUILDING REPAIR MAINTENANCE SUPERVISOR [facility] Absolute Reticulocyte 0.567(H) 0.025 - 0.095 10e6/uL 05/08/2024 4:25 PM BUILDING REPAIR MAINTENANCE SUPERVISOR [facility] Blood VENOUS LINE / Unknown Venipuncture / Unknown 05/08/2024 4:14 PM BUILDING REPAIR MAINTENANCE SUPERVISOR 05/08/2024 4:21 PM [facility] us Polly Alcaraz MD LAB - BLOOD ORDERABLES Liss plaza Result [facility] [address] [place] [address], [facility] * (ABNORMAL) Comprehensive metabolic panel (05/08/2024 4:14 PM [facility]) Sodium 138 135 - 145 mmol/L 05/08/2024 4:41 PM [facility] Potassium 4.5 3.4 - 5.3 mmol/L 05/08/2024 4:41 PM [facility] Carbon Dioxide (CO2) 19(L) 22 - 29 mmol/L 05/08/2024 4:41 PM [facility] Anion Gap 13 7 - 15 mmol/L 05/08/2024 4:41 PM [facility] Urea Nitrogen 8.6 6.0 - 20.0 mg/dL 05/08/2024 4:41 PM [facility] Creatinine 0.72 0.51 - 0.95 mg/dL 05/08/2024 4:41 PM [facility] GFR Estimate >90 >60 mL/min/1.7 3m2 05/08/2024 4:41 PM [facility] Comment:eGFR calculated usin 2020 CKD-EPI equation. Calcium 8.9 8.8 - 10.4 mg/dL 05/08/2024 4:41 PM [facility] Comment:Reference intervals for this test were updated on 11/09/2023 to reflect our healthy population more accurately. There may be differences in the flagging of prior results with similar values performed with this method. Those prior results can be interpreted in the context of the updated reference intervals. Chloride 106 98 - 107 mmol/L 05/08/2024 4:41 PM [facility] Glucose 99 70 - 99 mg/dL 05/08/2024 4:41 PM [facility] Alkaline Phosphatase 116 40 - 150 U/L 05/08/2024 4:41 PM [facility] AST 43 0 - 45 U/L 05/08/2024 4:41 PM [facility] ALT 31 0 - 50 U/L 05/08/2024 4:41 PM [facility] Protein Total 8.3 6.4 - 8.3 g/dL 05/08/2024 4:41 PM [facility] Albumin 4.6 3.5 - 5.2 g/dL 05/08/2024 4:41 PM [facility] Bilirubin Total 2.6(H) <=1.2 mg/dL 05/08/2024 4:41 PM [facility] Blood VENOUS LINE / Unknown Venipuncture / Unknown 05/08/2024 4:14 PM BUILDING REPAIR MAINTENANCE SUPERVISOR 05/08/2024 4:21 PM BUILDING REPAIR MAINTENANCE SUPERVISOR Polly Alcaraz MD LAB - BLOOD ORDERABLES Liss l Result [facility] [address] [place], [place] [address] * ECG 12-LEAD WITH MUSE (LHE) (05/08/2024 3:13 PM BUILDING REPAIR MAINTENANCE SUPERVISOR) Systolic Blood Pressure 123 mmHg RADIOLOGY RESULTS Diastolic Blood Pressure 58 mmHg RADIOLOGY RESULTS Ventricular Rate 103 BPM RAD IOLOGY RESULTS Atrial Rate [address] Interval 144 ms RADIOLOG Y RESULTS QRS Duration 78 ms RADIOLO GY RESULTS QT 332 ms RADIOLOGY RESULTS QTc 434 ms RADIOLOGY RESULTS P [place] 39 degrees RADIOLOGY RESULTS R AXIS 65 degrees RADIOLOGY RESULTS T [place] 24 degrees RADIOLOGY RESULTS Interpretation ECG Sinus tachycardia Nonspecific T wave abnormality Abnormal ECG When compared with ECG of 06-May-2024 19:51, No significant change was found Confirmed by SEE ED PROVIDER NOTE FOR, ECG INTERPRETATION (4000), city editor SELMA GARRISON ([id number]) on 05/08/2024 4:18:52 PM RADIOLOGY RESULTS 05/08/2024 3:13 PM BUILDING REPAIR MAINTENANCE SUPERVISOR 05/08/2024 4:18 PM BUILDING REPAIR MAINTENANCE SUPERVISOR Polly Alcaraz MD ECG ORDERABLES Edited Resu [...] For 1 dose $Given 05/08/2024 5:37 PM BUILDING REPAIR MAINTENANCE SUPERVISOR 25 mg HYDROmorphone (DILAUDID) injection 2 mg 2 mg, Intravenous, ONCE, On Wed05/08/24 at 1530, For 1 dose $Given 05/08/2024 4:17 PM BUILDING REPAIR MAINTENANCE SUPERVISOR 2 mg HYDROmorphone (DILAUDID) injection 2 mg 2 mg, Intravenous, ONCE, On Wed05/08/24 at 1730, For 1 dose $Given 05/08/2024 5:37 PM BUILDING REPAIR MAINTENANCE SUPERVISOR 2 mg HYDROmorphone (DILAUDID) injection 2 mg 2 mg, Intravenous, ONCE, On Wed05/08/24 at 1900, For 1 dose $Given 05/08/2024 7:00 PM BUILDING REPAIR MAINTENANCE SUPERVISOR 2 mg lactated ringers BOLUS 1,000 mL Intravenous, 1,000 mL, ONCE, at 1,000 mL/hr, Administer over 1 Hours, On Wed05/08/24 at 1530, For 1 dose $New Bag 05/08/2024 4:17 PM BUILDING REPAIR MAINTENANCE SUPERVISOR 1,000 mLs 1000 mL/hr ondansetron (ZOFRAN) injection 4 mg 4 mg, Intravenous, ONCE, Administer over 2-5 Minutes, On Wed05/08/24 at 1530, For 1 dose $Given 05/08/2024 4:17 PM BUILDING REPAIR MAINTENANCE SUPERVISOR 4 mg documented in this encounter Active and Recently Administered Medications Times are shown in BUILDING REPAIR MAINTENANCE SUPERVISOR. Scheduled Medication Order 05/06/2024 05/07/2024 05/08/2024 diphenhydrAMINE [...] Out COVID-19 05/08/2024 05/08/2024 05/08/2024 8:18 PM BUILDING REPAIR MAINTENANCE SUPERVISOR documented as of this encounter Care Teams Bottoming Room Inspector Relationship Specialty Start Date End Date No Ref-Primary, Physician PCP - General 03/15/24 06/17/24 Mor Ramsey Medical Student 04/03/24 documented as of this encounter
--- OUTSIDE RECORDS SUMMARY | 2024-06-22 01:08 | XMS_ITS | Encounter Summary ---
Author Organization [facility] Address [address] [place] [address]. [place] [address] Care Team Providers Care Furnace Converter Name Role Phone No Ref-Primary, Physician Primary Care Provider Mor Ramsey Unavailable Unavailable Case Samuel MD Unavailable [phone] Juhi Benson RN Unavailable Unavailable Reason for Visit * Reason Comments Sickle Cell Pain Crisis Encounter Details Date Type Department Care Team (Late st Contact Info) Description 06/01/2024 11:41 PM INFORMATICA - 06/02/2024 2:35 AM [facility] Emergency [facility] Emergency Room [address] [place] [address] Noel Pinzon MD [address] [place] [address] Sickle cell pain crisis (H) Discharge Disposition: [...] on file Legal Sex Female 8:25 AM INFORMATICA Gender Identity Not on file Sexual Orientation Not on file documented as of this encounter Last Filed Vital Signs Vital Sign Reading Time Taken Comments Blood Pressure 117/69 06/02/2024 2:15 AM INFORMATICA Pulse 73 06/02/2024 2:15 AM INFORMATICA Temperature 36.7 C (98.1 F) 06/01/2024 10:44 PM INFORMATICA Respiratory Rate 15 06/02/2024 2:00 AM INFORMATICA Oxygen Saturation 95% 06/02/2024 2:15 AM INFORMATICA Inhaled Oxygen Concentration - - Weight 54.4 kg (120 lb) 06/01/2024 10:44 PM INFORMATICA Height - - Body Mass Index 22.67 05/31/2024 9:39 PM INFORMATICA documented in this encounter Discharge Instructions * Discharge Instructions* Noel Pinzon MD - 06/02/2024 1:57 AM INFORMATICA Continue outpatient follow up and cares with your specialist. wood room supervisor your prescription for dilaudid tomorrow and take as directed. RMATICA RMATICA documented in this encounter Medications at Time [...] questions were answered. Vitally stable upon discharge. RMATICA RMATICA * Noel Pinzon MD - 06/01/2024 11:07 PM CST Emergency Department Encounter Evaluation Date & Time: No admission date for patient encounter. CHIEF COMPLAINT: Sickle Cell Pain Crisis Triage Note:PT is coming in tonight for a sickle cell crisis. Pt has been waiting for her pharmacy to fill her RX. They stated that pharmacy might have the RX tomorrow. No OTC medication KNIFE FINISHER. ED COURSE & MEDICAL DECISION MAKING: Pt [...] history is provided by the patient. No elevator starter was used. Gianna Hernández is a 29 [...] my direction. Noel Pinzon DO Emergency Medicine [facility] EMERGENCY ROOM 06/01/2024 11:07 PM Noel Pinzon MD 06/02/24 0236 RMATICA * Aminata Farley, SOFIA - 06/01/2024 10:45 PM CST PT is coming in tonight for a sickle cell crisis. Pt has been waiting for her pharmacy to fill her RX. They stated that pharmacy might have the RX tomorrow. No OTC medication KNIFE FINISHER. Triage Assessment (Adult) Row Name 06/01/24 2244 Triage Assessment Airway WDL WDL Respiratory WDL Respiratory WDL WDL Skin Circulation/Temperature WDL Skin Circulation/Temperature WDL WDL Cardiac WDL Cardiac WDL WDL Peripheral/Neurovascular WDL Peripheral Neurovascular WDL WDL Cognitive/Neuro/Behavioral WDL Cognitive/Neuro/Behavioral WDL WDL RMATICA documented in this encounter Plan of Treatment Not on file documented as of this encounter Goals Goal Patient Goal Type Associated Problems Recent Progress Patient-Stated? Author Pain Management General On track( 025 12:40 PM INFORMATICA) Yes Juhi Benson, RN Note: Goal Statement: [...] For 1 dose $Given 06/02/2024 1:17 AM INFORMATICA 50 mg heparin lock flush 10 unit/mL [...] each port lumen $Given 06/02/2024 2:29 AM INFORMATICA 5 mLs HYDROmorphone (DILAUDID) injection 2 mg 2 mg, Intravenous, ONCE, On [place] 06/01/24 at 2330, For 1 dose $Given 06/02/2024 12:07 AM INFORMATICA 2 mg HYDROmorphone (DILAUDID) injection 2 mg 2 mg, Intravenous, EVERY 1 HOUR PRN, severe pain, Starting on Wed06/01/24 at 2308, For 2 doses $Given 06/02/2024 2:17 AM INFORMATICA 2 mg $Given 06/02/2024 1:16 AM INFORMATICA 2 mg lactated ringers BOLUS 1,000 mL Intravenous, 1,000 mL, ONCE, On [place] 06/01/24 at 2330, For 1 dose $New Bag 06/02/2024 12:06 AM INFORMATICA 1,000 mLs ondansetron (ZOFRAN) injection 8 mg 8 mg, Intravenous, ONCE, Administer over 2-5 Minutes, On [place] 06/01/24 at 2330, For 1 dose $Given 06/02/2024 12:06 AM INFORMATICA 8 mg sodium chloride (PF) 0.9% PF [...] each port lumen. $Given 06/02/2024 12:12 AM INFORMATICA 20 mLs documented in this encounter Active and Recently Administered Medications Times are shown in INFORMATICA. Scheduled Medication Order 05/31/2024 06/01/2024 06/02/2024 diphenhydrAMINE [...] lumen documented in this encounter Care Teams Furnace Converter Relationship Specialty Start Date End Date No Ref-Primary, Physician PCP - General 03/15/24 06/17/24 Mor Ramsey Medical Student 04/03/24 Case Samuel MD [address] [place] [address], [address] [place] [address] Assigned Pediatric Specialist Provider 05/18/24 Juhi Benson, RN Specialty Childbirth Educator Hematology & Oncology 05/29/24 documented as of this encounter
--- OUTSIDE RECORDS SUMMARY | 2024-06-22 01:08 | XMS_ITS | Encounter Summary ---
Author Organization [place] Address [facility]ly [facility], [facility] [place] [address] Care Team Providers Care Clay Burner Name Role Phone No Ref-Primary, Physician Primary [...] file Legal Sex Female 8:25 AM HEAD WAITER/WAITRESS Gender Identity Not on file Sexual Orientation Not on file documented as of this encounter Plan of Treatment Not on file documented as of this encounter Goals Goal Patient Goal Type Associated Problems Recent Progress Patient-Stated? Author Pain Management General On track( 025 12:40 PM HEAD WAITER/WAITRESS) Yes Juhi Benson, RN Note: Goal Statement: [...] Out COVID-19 05/08/2024 05/08/2024 05/08/2024 8:18 PM HEAD WAITER/WAITRESS documented as of this encounter Care Teams Clay Burner Relationship Specialty Start Date End Date No Ref-Primary, Physician PCP - General 03/15/24 06/17/24 Mor Ramsey Medical Student 04/03/24 documented as of this encounter
--- OUTSIDE RECORDS SUMMARY | 2024-06-22 01:08 | XMS_ITS | Encounter Summary ---
Author Organization [facility] Address [address] [place] [address] Care Team Providers Care Production Planning Supervisor Name Role Phone No Ref-Primary, Physician Primary Care Provider Mor Ramsey Unavailable Unavailable Reason for Visit * Reason Onset Date Comments Refill Request 05/08/2024 Encounter Details Date Type Department Care Team ([facility] st Contact Info) Description 05/08/2024 MyC Refill [facility] [address] [place] [address] Case Samuel MD [address] [facility] [address], [address] [place] [address] Refill Request Social History Tobacco [...] on file Legal Sex Female 8:25 AM SECOND HAND PAPER MACHINE Gender Identity Not on file Sexual Orientation [...] and by whom: Dr. Samuel on 05/01/2024 RIB BENDER Reviewed: Send to provider: Dr. Samuel and RNCC ND HAND PAPER MACHINE documented in this encounter Plan of Treatment Not on file documented as of this encounter Goals Goal Patient Goal Type Associated Problems Recent Progress Patient-Stated? Author Pain Management General On track( 025 12:40 PM SECOND HAND PAPER MACHINE) Yes Juhi Benson, RN Note: Goal Statement: [...] Out COVID-19 05/08/2024 05/08/2024 05/08/2024 8:18 PM SECOND HAND PAPER MACHINE documented as of this encounter Care Teams Production Planning Supervisor Relationship Specialty Start Date End Date No Ref-Primary, Physician PCP - General 03/15/24 06/17/24 Mor Ramsey Medical Student 04/03/24 documented as of this encounter
--- OUTSIDE RECORDS SUMMARY | 2024-06-22 01:08 | XMS_ITS | Encounter Summary ---
Author Organization [place] Address [address] [place] [address]. [place] [address] Care Team Providers Care Paint Supervisor Name Role Phone No Ref-Primary, Physician Primary Care Provider Mor Ramsey Unavailable Unavailable Case Samuel MD Unavailable [phone] Juhi Benson RN Unavailable Unavailable Reason for Visit * Reason Comments Sickle Cell Pain Crisis Chest Pain Encounter Details Date Type Department Care Team (Late st Contact Info) Description 06/05/2024 11:41 AM VALVE SEATER OPERATOR - 06/05/2024 3:28 PM [facility] Emergency Room [address] [place] [address] Stiven Madsen MD [address] [address] Star Gifford MD [address] [place], [place] [id number] Sickle cell pain crisis (H) Discharge Disposition: [...] on file Legal Sex Female 8:25 AM VALVE SEATER OPERATOR Gender Identity Not on file Sexual Orientation Not on file documented as of this encounter Last Filed Vital Signs Vital Sign Reading Time Taken Comments Blood Pressure 114/67 06/05/2024 3:00 PM VALVE SEATER OPERATOR Pulse 74 06/05/2024 3:00 PM VALVE SEATER OPERATOR Temperature 36.8 C (98.3 F) 06/05/2024 11:37 AM VALVE SEATER OPERATOR Respiratory Rate 18 06/05/2024 11:37 AM VALVE SEATER OPERATOR Oxygen Saturation 99% 06/05/2024 3:00 PM VALVE SEATER OPERATOR Inhaled Oxygen Concentration - - Weight 52.2 kg (115 lb) 06/05/2024 11:37 AM VALVE SEATER OPERATOR Height 154.9 cm (5' 1) 06/05/2024 11:37 AM VALVE SEATER OPERATOR Body Mass Index 21.73 06/05/2024 11:37 AM VALVE SEATER OPERATOR documented in this encounter Discharge Instructions * Discharge Instructions* Stiven Madsen MD - 06/05/2024 12:59 PM VALVE SEATER OPERATOR You were seen in the emergency department for a pain crisis. You were given medications and IV fluids. Please continue to follow-up with your established inside plant supervisor after this ED visit. E SEATER OPERATOR documented in this encounter Medications at Time [...] with other provider:Did you involve another provider (medical sales consultant, , pharmacy, etc.)?: No Discharge. No recommendations on prescription strength medication(s). See documentation for any additional details. MIPS: Not Applicable MEDICATIONS GIVEN IN THE EMERGENCY: Medications lactated ringers infusion (0 mLs Intravenous Stopped 06/05/24 6698) ondansetron (ZOFRAN) injection 8 mg (8 mg Intravenous $Given 06/05/24 1236) diphenhydrAMINE (BENADRYL) capsule 25 mg (25 mg Oral $Given 06/05/24 1240) NEW PRESCRIPTIONS STARTED AT TODAY'S ER VISIT Discharge Medication List as of 06/05/2024 3:28 PM HPI Patient information was obtained from: Patient Use of Field Service Rep: N/A Gianna Hernández is a 29 year [...] Per chart review, patient was seen at 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 Recently moved to [place] from [place], [place]. She is 1 of 9 [...] Connections: Socially Integrated (03/28/2024) Received from [facility] Social Connections Do you often feel [...] abnormality. Rate: 88 BPM Rhythm: Sinus rhythm [place]: 81 DC Interval: 148 ms QRS Interval: 82 ms [...] my direction. Stiven Madsen M.D. Emergency Medicine [facility] EMERGENCY ROOM [address] [facility] [id number] Dept: [phone] Stiven Madsen MD 06/05/24 1433 Stiven Madsen MD 06/05/24 1938 E SEATER OPERATOR E SEATER OPERATOR * Jose Ramon Sims, SOFIA - 06/05/2024 [...] WDL WDL Cognitive/Neuro/Behavioral WDL Cognitive/Neuro/Behavioral WDL WDL E SEATER OPERATOR documented in this encounter Plan of Treatment Not on file documented as of this encounter Goals Goal Patient Goal Type Associated Problems Recent Progress Patient-Stated? Author Pain Management General On track( 025 12:40 PM VALVE SEATER OPERATOR) Yes Juhi Benson, RN Note: Goal [...] MUSE JEREMIAS HORVATH,WWRocio STAT 06/05/2024 11:40 AM VALVE SEATER OPERATOR documented in this encounter Results * ECG 12-LEAD WITH MUSE (LHE) (06/05/2024 11:40 AM VALVE SEATER OPERATOR) Systolic Blood Pressure mmHg RADIOLOGY RESULTS Diastolic Blood Pressure mmHg RADIOLOGY RESULTS Ventricular Rate 88 BPM RAD IOLOGY RESULTS Atrial Rate 88 BPM RADIOLOG Y RESULTS DC Interval 148 ms RADIOLOG Y RESULTS QRS Duration 82 ms RADIOLO GY RESULTS QT 388 ms RADIOLOGY RESULTS QTc 469 ms RADIOLOGY RESULTS P [place] 43 degrees RADIOLOGY RESULTS R AXIS 81 degrees RADIOLOGY RESULTS T [place] 57 degrees RADIOLOGY RESULTS Interpretation ECG Sinus rhythm Nonspecific T wave abnormality Prolonged QT Abnormal ECG When compared with ECG of 03-Jun-2024 15:24, No significant change was found Confirmed by SEE ED PROVIDER NOTE FOR, ECG INTERPRETATION (4000), pictures editor Ariadna Shabazz ([id number]) on 06/05/2024 12:02:47 PM RADIOLOGY RESULTS 06/05/2024 11:4 0 AM VALVE SEATER OPERATOR 06/05/2024 12:02 PM VALVE SEATER OPERATOR us Stiven Madsen MD ECG ORDERABLES Edited [...] For 1 dose $Given 06/05/2024 12:40 PM VALVE SEATER OPERATOR 25 mg heparin lock flush 10 unit/mL [...] for each lumen $Given 06/05/2024 3:20 PM VALVE SEATER OPERATOR 5 mLs HYDROmorphone (DILAUDID) injection 2 mg 2 mg, Intravenous, EVERY 1 HOUR PRN, moderate pain, severe pain, Starting on Wed06/05/24 at 1153 $Given 06/05/2024 2:56 PM VALVE SEATER OPERATOR 2 mg $Given 06/05/2024 1:54 PM VALVE SEATER OPERATOR 2 mg $Given 06/05/2024 12:40 PM VALVE SEATER OPERATOR 2 mg lactated ringers infusion at 500 mL/hr, Intravenous, CONTINUOUS, Starting on Wed06/05/24 at 1200, Until Wed06/05/24 at 1359 $New Bag 06/05/2024 12:39 PM VALVE SEATER OPERATOR 500 mL/hr ondansetron (ZOFRAN) injection 8 mg 8 mg, Intravenous, ONCE, Administer over 2-5 Minutes, On Wed06/05/24 at 1200, For 1 dose $Given 06/05/2024 12:39 PM VALVE SEATER OPERATOR 8 mg documented in this encounter Active and Recently Administered Medications Times are shown in VALVE SEATER OPERATOR. Scheduled Medication Order 06/03/2024 06/04/2024 06/05/2024 ondansetron [...] RN) documented in this encounter Care Teams Paint Supervisor Relationship Specialty Start Date End Date No Ref-Primary, Physician PCP - General 03/15/24 06/17/24 Mor Ramsey Medical Student 04/03/24 Case Samuel MD [address] [place] [address] 484, [address] [place] [address] Assigned Pediatric Specialist Provider 05/18/24 Juhi Benson, SOFIA Specialty Oyster Farmer Hematology & Oncology 05/29/24 documented as of this encounter
--- OUTSIDE RECORDS SUMMARY | 2024-06-22 01:08 | XMS_ITS | Encounter Summary ---
Author Organization [place] Address [address] [place] [address]. [place] [address] Care Team Providers Care Supervisor Personnel Clerks Name Role Phone No Ref-Primary, Physician Primary Care Provider Mor Ramsey Unavailable Unavailable Case Samuel MD Unavailable [phone] Juhi Benson RN Unavailable Unavailable Encounter Details [...] on file Legal Sex Female 8:25 AM ALUM MIXER Gender Identity Not on file Sexual Orientation Not on file documented as of this encounter Plan of Treatment Not on file documented as of this encounter Goals Goal Patient Goal Type Associated Problems Recent Progress Patient-Stated? Author Pain Management General On track( 025 12:40 PM ALUM MIXER) Yes Juhi Benson RN Note: Goal Statement: [...] Out COVID-19 06/07/2024 06/07/2024 06/07/2024 12:50 PM ALUM MIXER Rule Out COVID-19 06/07/2024 06/07/2024 06/07/2024 3:32 PM ALUM MIXER documented as of this encounter Care Teams Supervisor Personnel Clerks Relationship Specialty Start Date End Date No Ref-Primary, Physician PCP - General 03/15/24 06/17/24 Elvira Ramseyc Medical Student 04/03/24 Case Samuel MD [address] [place] [address] [address], [address] [place] [address] Assigned Pediatric Specialist Provider 05/18/24 Juhi Benson, RN Specialty Acoustical Tile Drill Press Operator Hematology & Oncology 05/29/24 documented as of this encounter
--- OUTSIDE RECORDS SUMMARY | 2024-06-22 01:08 | XMS_ITS | Encounter Summary ---
Author Organization [place] Address [address] [place] [address] Care Team Providers Care Supervisor Operations Name Role Phone No Ref-Primary, Physician Primary Care Provider Mor Ramsey Unavailable Unavailable Case Samuel MD Unavailable [phone] Juhi Benson RN Unavailable Unavailable Reason for Visit * Reason Onset Date Comments Refill Request 06/05/2024 Encounter Details Date Type Department Care Team (Late st Contact Info) Description 06/05/2024 MyC Refill [facility] [address] [place] [address] Case Samuel MD [address] [place] [address] 484, [address] [place] [address] Refill Request Social History Tobacco [...] on file Legal Sex Female 8:25 AM JAVA SQL DEVELOPER Gender Identity Not on file Sexual [...] fill date and by whom: Dr. Samuel FIBER ANALYST Reviewed: Yes Send to provider: Routed to dr. Samuel and ESTEVAN Reynaga SQL DEVELOPER documented in this encounter Plan of Treatment Not on file documented as of this encounter Goals Goal Patient Goal Type Associated Problems Recent Progress Patient-Stated? Author Pain Management General On track( 025 12:40 PM JAVA SQL DEVELOPER) Yes Juhi Benson, SOFIA Note: Goal Statement: [...] crisis documented in this encounter Care Teams Supervisor Operations Relationship Specialty Start Date End Date No Ref-Primary, Physician PCP - General 03/15/24 06/17/24 Mor Ramsey Medical Student 04/03/24 Case Samuel MD [address] [place] [address] 484, [address] [place] [address] Assigned Pediatric Specialist Provider 05/18/24 Juhi Benson, SOFIA Specialty Major League Baseball Player Hematology & Oncology 05/29/24 documented as of this encounter
--- OUTSIDE RECORDS SUMMARY | 2024-06-22 01:08 | XMS_ITS | Encounter Summary ---
Author Organization [place] Address [address] [place] [address]. [place] [address] Care Team Providers Care Accounting Practice Manager Name Role Phone No Ref-Primary, Physician Primary Care Provider Mor Ramsey Unavailable Unavailable Case Samuel MD Unavailable [phone] Juhi Benson RN Unavailable Unavailable Encounter Details [...] on file Legal Sex Female 8:25 AM AIRFIELD DEFENCE GUARD Gender Identity Not on file Sexual Orientation Not on file documented as of this encounter Plan of Treatment Not on file documented as of this encounter Goals Goal Patient Goal Type Associated Problems Recent Progress Patient-Stated? Author Pain Management General On track( 025 12:40 PM AIRFIELD DEFENCE GUARD) Yes Juhi Benson RN Note: Goal Statement: [...] on filedocumented in this encounter Care Teams Accounting Practice Manager Relationship Specialty Start Date End Date No Ref-Primary, Physician PCP - General 03/15/24 06/17/24 Mor Ramsey Medical Student 04/03/24 Case Samuel MD [address] [place] [address] 484, [address] [place] [address] Assigned Pediatric Specialist Provider 05/18/24 Juhi Benson RN Specialty Assistant Associate Professor Hematology & Oncology 05/29/24 documented as of this encounter
--- OUTSIDE RECORDS SUMMARY | 2024-06-22 01:08 | XMS_ITS | Encounter Summary ---
Author Organization [place] Address [address] [place] [address]. [place] [address] Care Team Providers Care Faceter Name Role Phone No Ref-Primary, Physician Primary Care Provider Mor Ramsey Unavailable Unavailable Case Samuel MD Unavailable [phone] Juhi Benson RN Unavailable Unavailable Reason for Visit * Reason Comments Sickle Cell Pain Crisis Encounter Details Date Type Department Care Team (Late st Contact Info) Description 06/07/2024 10:00 AM WOOD COATER - 06/07/2024 10:45 AM [facility] Emergency [facility] Emergency Room [facility] [place] [address] Bernabe Farley MD [facility] [address] [place] [address] Chest pain, unspecified type; Fever, unspecified fever [...] on file Legal Sex Female 8:25 AM WOOD COATER Gender Identity Not on file Sexual Orientation Not on file documented as of this encounter Last Filed Vital Signs Vital Sign Reading Time Taken Comments Blood Pressure 108/63 06/07/2024 9:59 AM WOOD COATER Pulse 84 06/07/2024 9:59 AM WOOD COATER Temperature 36.6 C (97.9 F) 06/07/2024 9:59 AM WOOD COATER Respiratory Rate 19 06/07/2024 9:59 AM WOOD COATER Oxygen Saturation 100% 06/07/2024 9:59 AM WOOD COATER Inhaled Oxygen Concentration - - Weight 52.2 kg (115 lb) 06/07/2024 9:59 AM WOOD COATER Height - - Body Mass Index 21.73 06/06/2024 9:33 AM WOOD COATER documented in this encounter Medications at Time [...] 05/01/2024 naloxone (NARCAN) 4 MG/0.1ML nasal spray [place] 1 spray (4 mg) into one nostril [...] did not want to wait for a hook up driver so she would like to leave at this time. MD and charge informed. COATER * Bernabe Farley MD - 06/07/2024 10:04 [...] she unfortunately left by car as the hook up driver after stating to staff that she [...] Additional ED Course timestamps entered by medical technologist clinical: 10:12 AM I met with the patient [...] at this time. Per Chart Review: 06/06/24, [facility] ED: Patient presented for sickle cell [...] our physician who is working with her rail maintenance worker for the care plan. Per the patient [...] she shows signs of opiate overdose. Our dental secretary Hattie and our director of physical security Jagdeep both just saw the patient to get into the hook up driver seat and drive away after being [...] provider's statements to me. IBernabe MD attest thatGunner Crespo is acting in a scribe capacity, has observed my performance of the services and has documented them in accordance with my direction. Bernabe Farley M.D. Emergency Medicine formerly [facility] EMERGENCY ROOM [address] [facility] [address] Dept: [phone] Bernabe Farley MD 06/07/24 1045 COATER * Yanely Avendano RN - 06/07/2024 10:04 AM CST Pt here in sickle cell crisis for the 3rd day. Yesterday she received a lot of IV dilaudid and then drove home after told not to. Upon arrival here she repeatedly told this short story writer she was dropped off but after reviewing the security camera she is clearly driving in and getting out of the hook up driver seat. Provider notified. Reports chest pain today. Last dose of oral was 2 hours ago. Triage Assessment (Adult) Row Name 06/07/24 0959 Triage Assessment Airway WDL WDL Respiratory WDL Respiratory WDL WDL Skin Circulation/Temperature WDL Skin Circulation/Temperature WDL WDL Cardiac WDL Cardiac WDL WDL Peripheral/Neurovascular WDL Peripheral Neurovascular WDL WDL Cognitive/Neuro/Behavioral WDL Cognitive/Neuro/Behavioral WDL WDL COATER documented in this encounter Plan of Treatment Not on file documented as of this encounter Goals Goal Patient Goal Type Associated Problems Recent Progress Patient-Stated? Author Pain Management General On track( 025 12:40 PM WOOD COATER) Yes Juhi Benson, RN Note: Goal Statement: [...] Recently Administered Medications Times are shown in WOOD COATER. Scheduled Medication Order 06/05/2024 06/06/2024 06/07/2024 heparin [...] Out COVID-19 06/07/2024 06/07/2024 06/07/2024 12:50 PM WOOD COATER documented as of this encounter Care Teams Faceter Relationship Specialty Start Date End Date No Ref-Primary, Physician PCP - General 03/15/24 06/17/24 Mor Ramsey Medical Student 04/03/24 Case Samuel MD [address] [place] [address] 484, [address] [place] [address] Assigned Pediatric Specialist Provider 05/18/24 Juhi Benson, RN Specialty Shoe Turner Hematology & Oncology 05/29/24 documented as of this encounter
--- OUTSIDE RECORDS SUMMARY | 2024-06-22 01:08 | XMS_ITS | Encounter Summary ---
Author Organization [facility] [place] Address [address] [place] [address]. [place] [address] Care Team Providers Care Civil Engineering Technician Name Role Phone No Ref-Primary, Physician Primary Care Provider Mor Ramsey Unavailable Unavailable Case Samuel MD Unavailable [phone] Juhi Benson RN Unavailable Unavailable Encounter Details [...] on file Legal Sex Female 8:25 AM RUBBER STAMP DIES INSPECTOR Gender Identity Not on file Sexual Orientation Not on file documented as of this encounter Plan of Treatment Not on file documented as of this encounter Goals Goal Patient Goal Type Associated Problems Recent Progress Patient-Stated? Author Pain Management General On track( 025 12:40 PM RUBBER STAMP DIES INSPECTOR) Yes Juhi Benson RN Note: Goal [...] on filedocumented in this encounter Care Teams Civil Engineering Technician Relationship Specialty Start Date End Date No Ref-Primary, Physician PCP - General 03/15/24 06/17/24 Mor Ramsey Medical Student 04/03/24 Case Samuel MD [address] [place] [address] 484, [address] [place] [address] Assigned Pediatric Specialist Provider 05/18/24 Juhi Benson RN Specialty Treater Helper Hematology & Oncology 05/29/24 documented as of this encounter
--- OUTSIDE RECORDS SUMMARY | 2024-06-22 01:08 | XMS_ITS | Encounter Summary ---
Author Organization [facility] Address [address] [place] [address] Care Team Providers Care Plate Take Out Worker Name Role Phone No Ref-Primary, Physician Primary Care Provider Mor Ramsey Unavailable Unavailable Case Samuel MD Unavailable [phone] Juhi Benson RN Unavailable Unavailable Reason for Visit * Reason Comments Sickle Cell Pain Crisis Encounter Details Date Type Department Care Team (Late st Contact Info) Description 06/06/2024 9:41 AM ROD STRAIGHTENER - 06/06/2024 1:29 PM [facility] Emergency [facility] Emergency Room [facility] [place] [address] Marilia Summers MD [address] [place] [address] Sickle cell pain crisis (H) Discharge Disposition: [...] on file Legal Sex Female 8:25 AM ROD STRAIGHTENER Gender Identity Not on file Sexual Orientation Not on file documented as of this encounter Last Filed Vital Signs Vital Sign Reading Time Taken Comments Blood Pressure 122/82 06/06/2024 1:00 PM ROD STRAIGHTENER Pulse 77 06/06/2024 1:00 PM ROD STRAIGHTENER Temperature 36.9 C (98.5 F) 06/06/2024 9:33 AM ROD STRAIGHTENER Respiratory Rate 17 06/06/2024 9:33 AM ROD STRAIGHTENER Oxygen Saturation 98% 06/06/2024 1:00 PM ROD STRAIGHTENER Inhaled Oxygen Concentration - - Weight 52.2 kg (115 lb) 06/06/2024 9:33 AM ROD STRAIGHTENER Height 154.9 cm (5' 1) 06/06/2024 9:33 AM ROD STRAIGHTENER Body Mass Index 21.73 06/06/2024 9:33 AM ROD STRAIGHTENER documented in this encounter Discharge Instructions * Discharge Instructions* Marilia Summers MD - 06/06/2024 12:48 PM ROD STRAIGHTENER With the amount of hydromorphone that you [...] work on your care plan with your seafood farmer to see if they would be agreeable to getting you an appointment with pain clinic even while you are waiting to start the plasmapheresis to work a bit more on a home pain regimen for you. Continue to follow your care plan discussed with your seafood farmer to treat your sickle cell pain crisis. Your next dose of dilaudid should not be before 2:30 pm. STRAIGHTENER STRAIGHTENER * Attachments The following attachments cannot be sent through Care Everywhere. * Naloxone Nasal [place] (NALOXONE SPRAY - NASAL) (Bengali) * Drug Overdose: Opioid (Bengali) documented in this encounter Medications at Time [...] 05/01/2024 naloxone (NARCAN) 4 MG/0.1ML nasal spray [place] 1 spray (4 mg) into one nostril [...] WDL WDL Cognitive/Neuro/Behavioral WDL Cognitive/Neuro/Behavioral WDL WDL STRAIGHTENER * Marilia Summers MD - 06/06/2024 9:34 [...] our physician who is working with her seafood farmer for the care plan. Per the patient [...] plans and they will talk with her seafood farmer about the request for the patient to [...] do now have a major issue. Our typing secretary Hattie and our mobile security architect Augusto just saw the patient to get into the regional flatbed truck driver seat and drive away after being told specifically that she cannot drive and that she had told us that her significant other was driving in to pick herup. 1328 Our security did have her on video (as retail furniture sales concerned she did not get into a [...] Prescriptions NALOXONE (NARCAN) 4 MG/0.1ML NASAL SPRAY [place] 1 spray (4 mg) into one nostril [...] has been evaluated multiple times since in [place] and although she has a remote history [...] than previous suspect she was slightly dehydrated. [facility] Documentation Medical Decision Making Obtained supplemental [...] with other provider:Did you involve another provider (tour consultant, , pharmacy, etc.)?: No Discharge.continue current meds The creation of this record is based on the scribe???s observations of the work being performed by Alex Ashby and the provider???s statements to them. This document has been checked and approved byMD Marilia Martinez MD Emergency Medicine [facility] EMERGENCY ROOM Marilia Summers MD 06/06/24 1254 Marilia Summers MD 06/06/24 1257 Marilia Summers MD 06/06/24 1330 STRAIGHTENER STRAIGHTENER STRAIGHTENER documented in this encounter Plan of Treatment Not on file documented as of this encounter Goals Goal Patient Goal Type Associated Problems Recent Progress Patient-Stated? Author Pain Management General On track( 025 12:40 PM ROD STRAIGHTENER) Yes Juhi Benson, SOFIA Note: Goal Statement: [...] For 1 dose $Given 06/06/2024 10:22 AM ROD STRAIGHTENER 50 mg heparin lock flush 10 [...] each port lumen $Given 06/06/2024 1:13 PM ROD STRAIGHTENER 5 mLs HYDROmorphone (DILAUDID) injection 2 mg 2 mg, Intravenous, EVERY 1 HOUR PRN, moderate pain, Starting on Wed06/06/24 at 0958, For 2 doses $Given 06/06/2024 11:31 AM ROD STRAIGHTENER 2 mg $Given 06/06/2024 10:22 AM ROD STRAIGHTENER 1 mg HYDROmorphone (DILAUDID) injection 2 mg 2 mg, Intravenous, ONCE, On Wed06/06/24 at 1300, For 1 dose $Given 06/06/2024 12:57 PM ROD STRAIGHTENER 2 mg lactated ringers BOLUS 1,000 mL Intravenous, 1,000 mL, ONCE, On Wed06/06/24 at 1000, For 1 dose $New Bag 06/06/2024 10:12 AM ROD STRAIGHTENER 1,000 mLs sodium chloride (PF) 0.9% PF [...] Recently Administered Medications Times are shown in ROD STRAIGHTENER. Scheduled Medication Order 06/04/2024 06/05/2024 06/06/2024 heparin [...] lumen documented in this encounter Care Teams Plate Take Out Worker Relationship Specialty Start Date End Date No Ref-Primary, Physician PCP - General 03/15/24 06/17/24 Mor Ramsey Medical Student 04/03/24 Case Samuel MD [address] [place] [address] 484, [address] [place] [address] Assigned Pediatric Specialist Provider 05/18/24 Marcelino, Juhi, RN Specialty Avionics Mechanic Hematology & Oncology 05/29/24 documented as of this encounter
--- OUTSIDE RECORDS SUMMARY | 2024-06-22 01:08 | XMS_ITS | Encounter Summary ---
Author Organization [facility] Address [address] [place] [address]. [place] [address] Care Team Providers Care Scrap Crane Operator Name Role Phone No Ref-Primary, Physician Primary Care Provider Mor Ramsey Unavailable Unavailable Case Samuel MD Unavailable [phone] Juhi Benson RN Unavailable Unavailable Reason for Visit * Reason Comments Infusion IVF + pain medicatio n Encounter Details Date Type Department Care Team (Late st Contact Info) Description 06/07/2024 1:30 PM PRIMARY SPECIAL EDUCATION TEACHER Infusion Therapy Visit [facility] Advanced Treatment [facility] [address] [place] [address] Case Samuel MD [address] [place] [address] 484, [address] [place], [place] [id number] Fever (Primary Dx); Sickle cell pain crisis [...] on file Legal Sex Female 8:25 AM PRIMARY SPECIAL EDUCATION TEACHER Gender Identity Not on file Sexual Orientation Not on file documented as of this encounter Last Filed Vital Signs Vital Sign Reading Time Taken Comments Blood Pressure 119/76 06/07/2024 3:43 PM PRIMARY SPECIAL EDUCATION TEACHER Pulse 72 06/07/2024 3:43 PM PRIMARY SPECIAL EDUCATION TEACHER Temperature 37 C (98.6 F) 06/07/2024 1:35 PM PRIMARY SPECIAL EDUCATION TEACHER Respiratory Rate 16 06/07/2024 1:35 PM PRIMARY SPECIAL EDUCATION TEACHER Oxygen Saturation 99% 06/07/2024 3:43 PM PRIMARY SPECIAL EDUCATION TEACHER Inhaled Oxygen Concentration - - Weight - - Height - - Body Mass Index - - documented in this encounter Patient Instructions * Patient Instructions* Tyson Hess RN - 06/07/2024 1:30 PM PRIMARY SPECIAL EDUCATION TEACHER Dear Gianna Hernández Thank you for choosing [facility] ([facility]) for your infusion. The following information is a summary of our appointment as well as important reminders. If you have any questions on your upcoming Specialty Infusion appointments, please call scheduling at [phone]. It was a pleasure taking care of you today. Sincerely, [facility] [address] [place] [address] ARY SPECIAL EDUCATION TEACHER documented in this encounter Progress Notes * Tyson Hess RN - 06/07/2024 1:30 PM CST Infusion Nursing Note: Gianna Hernández presents today for IV infusion; IVF + pain medication. Patient seen by provider today: No Rn Office present during visit today: Not Applicable. Note: [...] all questions answered. AVS to patient via [facility]. Patient will return as needed for next appointment. Patient discharged in stable condition accompanied by: self. Departure Mode: Ambulatory. Tyson Hess RN ARY SPECIAL EDUCATION TEACHER documented in this encounter Plan of Treatment Not on file documented as of this encounter Goals Goal Patient Goal Type Associated Problems Recent Progress Patient-Stated? Author Pain Management General On track( 025 12:40 PM PRIMARY SPECIAL EDUCATION TEACHER) Yes Juhi Benson RN Note: Goal Statement: [...] AND PLATELET MORPHOLOGY Routine 06/07/2024 1:15 PM PRIMARY SPECIAL EDUCATION TEACHER Sickle cell pain crisis (H) CBC WITH PLATELETS AND DIFFERENTIAL Routine 06/07/2024 1:15 PM PRIMARY SPECIAL EDUCATION TEACHER Sickle cell pain crisis (H) INFLUENZA A/B, RSV AND SARS-COV2 PCR Routine 06/07/2024 1:15 PM PRIMARY SPECIAL EDUCATION TEACHER Fever CBC WITH PLATELETS & DIFFERENTIAL Routine 06/07/2024 1:15 PM PRIMARY SPECIAL EDUCATION TEACHER Sickle cell pain crisis (H) BASIC METABOLIC PANEL Routine 06/07/2024 1:15 PM PRIMARY SPECIAL EDUCATION TEACHER Sickle cell pain crisis (H) documented in this encounter Results * (ABNORMAL) RBC and Platelet Morphology (06/07/2024 1:15 PM PRIMARY SPECIAL EDUCATION TEACHER) RBC Morphology Confirmed RBC Indices 06/07/2024 2:06 PM PRIMARY SPECIAL EDUCATION TEACHER [facility]ORE [facility] Platelet Assessment Automated Count Confirmed. Platelet morphology is normal. Automated Count Confirmed. Platelet morphology is normal. 06/07/2024 2:06 PM PRIMARY SPECIAL EDUCATION TEACHER [facility] - [facility]ORE LAB Ziegler-Harrold Bodies Present(A) None Seen 06/07/2024 2:06 PM PRIMARY SPECIAL EDUCATION TEACHER [facility] Polychromasia Slight(A) None Seen 06/07/2024 2:06 PM PRIMARY SPECIAL EDUCATION TEACHER [facility]ORE [facility] Sickle Cells Moderate(A) None Seen 06/07/2024 2:06 PM PRIMARY SPECIAL EDUCATION TEACHER [facility] Target Cells Slight(A) None Seen 06/07/2024 2:06 PM PRIMARY SPECIAL EDUCATION TEACHER [facility]ORE [facility] Teardrop Cells Slight(A) None Seen 06/07/2024 2:06 PM PRIMARY SPECIAL EDUCATION TEACHER [facility] Blood BLOOD SPECIMEN / Unknown IVAD (Port) / Unknown 06/07/2024 1:15 PM PRIMARY SPECIAL EDUCATION TEACHER 06/07/2024 1:35 PM PRIMARY SPECIAL EDUCATION TEACHER Case Samuel MD LAB - BLOOD ORDERABLES Fi nal Result [facility] - CORE [facility] [address] 1st [place] [address] * Influenza A/B, RSV and SARS-CoV2 PCR (COVID-19) Nasopharyngeal (06/07/2024 1:15 PM PRIMARY SPECIAL EDUCATION TEACHER) Influenza A PCR Negative Negative 06/07/2024 3:32 PM PRIMARY SPECIAL EDUCATION TEACHER [facility] Influenza B PCR Negative Negative 06/07/2024 3:32 PM PRIMARY SPECIAL EDUCATION TEACHER [facility] RSV PCR Negative Negative 06/07/2024 3:32 PM PRIMARY SPECIAL EDUCATION TEACHER [facility] SARS CoV2 PCR Negative Negative 06/07/2024 3:32 PM PRIMARY SPECIAL EDUCATION TEACHER [facility] Comment:NEGATIVE: SARS-CoV-2 (COVID-19) RNA not detected, presumed negative. Swab NASOPHARYNGEAL STRUCTURE / Unknown Non-blood Collection / Unknown 06/07/2024 1:15 PM PRIMARY SPECIAL EDUCATION TEACHER 06/07/2024 1:36 PM PRIMARY SPECIAL EDUCATION TEACHER Narrative [facility] - 06/07/2024 3:32 PM PRIMARY SPECIAL EDUCATION TEACHER Testing was performed using the Xpert Xpress CoV2/Flu/RSV Assay on the Pro Hoop Strength GeneXpert Instrument. This test should be ordered [...] management. This test was validated by the [facility]. These laboratories are certified under the Clinical Laboratory Improvement Amendments of 1988 (CLIA-88) as qualified to perfom high complexity laboratory testing. us Case Samuel MD LAB - MICRO GENERAL ORDER SYD Final Result [facility] Inf. Diseases Diag. Lab [address] [facility], [address] [place] [address] * (ABNORMAL) CBC with platelets and differential (06/07/2024 1:15 PM PRIMARY SPECIAL EDUCATION TEACHER) WBC Count 13.7(H) 4.0 - 11.0 10e3/uL 06/07/2024 2:06 PM [facility] - [facility]ORE [facility] RBC Count 2.80(L) 3.80 - 5.20 10e6/uL 06/07/2024 2:06 PM [facility] Hemoglobin 8.8(L) 11.7 - 15.7 g/dL 06/07/2024 2:06 PM [facility] Hematocrit 25.3(L) 35.0 - 47.0 % 06/07/2024 2:06 PM [facility] MCV 90 78 - 100 fL 06/07/2024 2:06 PM [facility] MCH 31.4 26.5 - 33.0 pg 06/07/2024 2:06 PM [facility] MCHC 34.8 31.5 - 36.5 g/dL 06/07/2024 2:06 PM [facility] RDW 19.4(H) 10.0 - 15.0 % 06/07/2024 2:06 PM [facility] Platelet Count 516(H) 150 - 450 10e3/uL 06/07/2024 2:06 PM [facility] % Neutrophils 67 % 06/07/2024 2:06 PM [facility] % Lymphocytes 20 % 06/07/2024 2:06 PM [facility] % Monocytes 11 % 06/07/2024 2:06 PM [facility] % Eosinophils 1 % 06/07/2024 2:06 PM PRIMARY SPECIAL EDUCATION TEACHER [facility] % Basophils 1 % 06/07/2024 2:06 PM PRIMARY SPECIAL EDUCATION TEACHER [facility] % Immature Granulocytes 0 % 06/07/2024 2:06 PM PRIMARY SPECIAL EDUCATION TEACHER [facility] NRBCs per 100 WBC 1(H) <1 /100 025 2:06 PM PRIMARY SPECIAL EDUCATION TEACHER [facility] Absolute Neutrophils 9.2(H) 1.6 - 8.3 10e3/uL 06/07/2024 2:06 PM PRIMARY SPECIAL EDUCATION TEACHER [facility] Absolute Lymphocytes 2.7 0.8 - 5.3 10e3/uL 06/07/2024 2:06 PM PRIMARY SPECIAL EDUCATION TEACHER [facility] Absolute Monocytes 1.5(H) 0.0 - 1.3 10e3/uL 06/07/2024 2:06 PM [facility] Absolute Eosinophils 0.1 0.0 - 0.7 10e3/uL 06/07/2024 2:06 PM PRIMARY SPECIAL EDUCATION TEACHER [facility] Absolute Basophils 0.2 0.0 - 0.2 10e3/uL 06/07/2024 2:06 PM PRIMARY SPECIAL EDUCATION TEACHER [facility] Absolute Immature Granulocytes 0.1 <=0.4 10e3/uL 06/07/2024 2:06 PM PRIMARY SPECIAL EDUCATION TEACHER [facility] Absolute NRBCs 0.1 10e3/uL 06/07/2024 2:06 PM [facility] Blood BLOOD SPECIMEN / Unknown IVAD (Port) / Unknown 06/07/2024 1:15 PM PRIMARY SPECIAL EDUCATION TEACHER 06/07/2024 1:35 PM PRIMARY SPECIAL EDUCATION TEACHER us Case Samuel MD LAB - BLOOD ORDERABLES Fi nal Result [facility] [place] [address] [facility] 1st [place] [address] * (ABNORMAL) Basic metabolic panel (06/07/2024 1:15 PM PRIMARY SPECIAL EDUCATION TEACHER) Pathologist [facility] Sodium 139 135 - 145 mmol/L 06/07/2024 2:11 PM PRIMARY SPECIAL EDUCATION TEACHER [facility] Potassium 4.4 3.4 - 5.3 mmol/L 06/07/2024 2:11 PM [facility] Chloride 109(H) 98 - 107 mmol/L 06/07/2024 2:11 PM [facility] Carbon Dioxide (CO2) 22 22 - 29 mmol/L 06/07/2024 2:11 PM [facility] Anion Gap 8 7 - 15 mmol/L 06/07/2024 2:11 PM [facility] Urea Nitrogen 7.4 6.0 - 20.0 mg/dL 06/07/2024 2:11 PM [facility] Creatinine 0.66 0.51 - 0.95 mg/dL 06/07/2024 2:11 PM [facility] GFR Estimate >90 >60 mL/min/1.7 3m2 06/07/2024 2:11 PM [facility] Comment:eGFR calculated usin 2020 CKD-EPI equation. Calcium 9.3 8.8 - 10.4 mg/dL 06/07/2024 2:11 PM [facility] Glucose 98 70 - 99 mg/dL 06/07/2024 2:11 PM [facility] Blood BLOOD SPECIMEN / Unknown IVAD (Port) / Unknown 06/07/2024 1:15 PM PRIMARY SPECIAL EDUCATION TEACHER 06/07/2024 1:35 PM PRIMARY SPECIAL EDUCATION TEACHER Case Samuel MD LAB - BLOOD ORDERABLES Fi nal Result [facility] [address] 1[address] [place] [address] documented in this encounter Visit Diagnoses Diagnosis [...] pain crisis (H) $Given 06/07/2024 3:41 PM PRIMARY SPECIAL EDUCATION TEACHER 5 mLs HYDROmorphone (DILAUDID) injection 2 mg 2 mg, Intravenous, EVERY 1 HOUR PRN, severe pain, moderate pain, Starting on Wed06/07/24 at 1309, For 3 dosesIndications:Sickle cell pain crisis (H) $Given 06/07/2024 3:28 PM PRIMARY SPECIAL EDUCATION TEACHER 2 mg $Given 06/07/2024 2:30 PM PRIMARY SPECIAL EDUCATION TEACHER 2 mg $Given 06/07/2024 1:37 PM PRIMARY SPECIAL EDUCATION TEACHER 2 mg lactated ringers BOLUS 1,000 mL Intravenous, 1,000 mL, ONCE, at 500 mL/hr, Administer over 2 Hours, On Wed06/07/24 at 1315, For 1 doseIndications:Sickle cell pain crisis (H) $New Bag 06/07/2024 1:37 PM PRIMARY SPECIAL EDUCATION TEACHER 1,000 mLs 500 mL/hr documented in this encounter Additional Health Concerns Infection Onset Date Last Indicated Resolved Time Rule Out COVID-19 06/07/2024 06/07/2024 06/07/2024 3:32 PM PRIMARY SPECIAL EDUCATION TEACHER documented as of this encounter Care Teams Scrap Crane Operator Relationship Specialty Start Date End Date No Ref-Primary, Physician PCP - General 03/15/24 06/17/24 Mor Ramsey Medical Student 04/03/24 Case Samuel MD [address] [place] [address] 484, [address] [place] [address] Assigned Pediatric Specialist Provider 05/18/24 Juhi Benson, RN Specialty Director Clinical Pharmacology Hematology & Oncology 05/29/24 documented as of this encounter
--- OUTSIDE RECORDS SUMMARY | 2024-06-22 01:09 | XMS_ITS | Encounter Summary ---
Author Organization [facility] Address [address] [place] [address]. [place] [address] Care Team Providers Care Medicare Interviewer Name Role Phone No Ref-Primary, Physician Primary Care Provider Mor Ramsey Unavailable Unavailable Case Samuel MD Unavailable [phone] Juhi Benson RN Unavailable Unavailable Encounter Details [...] on file Legal Sex Female 8:25 AM HELMET HAT SWEATBAND PUNCHER Gender Identity Not on file Sexual Orientation Not on file documented as of this encounter Plan of Treatment Not on file documented as of this encounter Goals Goal Patient Goal Type Associated Problems Recent Progress Patient-Stated? Author Pain Management General On track( 025 12:40 PM HELMET HAT SWEATBAND PUNCHER) Yes Juhi Benson RN Note: Goal Statement: [...] on filedocumented in this encounter Care Teams Medicare Interviewer Relationship Specialty Start Date End Date No Ref-Primary, Physician PCP - General 03/15/24 06/17/24 Mor Ramsey Medical Student 04/03/24 Case Samuel MD [address] [place] [address] 484, [address] [place] [address] Assigned Pediatric Specialist Provider 05/18/24 Juhi Benson RN Specialty Airplane Woodworker Hematology & Oncology 05/29/24 documented as of this encounter
--- OUTSIDE RECORDS SUMMARY | 2024-06-22 01:09 | XMS_ITS | Encounter Summary ---
Author Organization [place] Address [address] [place] [address] Care Team Providers Care Legal Executive Assistant Name Role Phone No Ref-Primary, Physician Primary Care Provider Mor Ramsey Unavailable Unavailable Case Samuel MD Unavailable [phone] Juhi Benson RN Unavailable Unavailable Reason for Visit * Reason Comments Blood Transfusion 1 unit blood Infusion Fluids and pain medi cations Encounter Details Date Type Department Care Team (Late st Contact Info) Description 05/30/2024 8:00 AM POWER PLANT ELECTRICIAN Infusion Therapy Visit M 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); [...] on file Legal Sex Female 8:25 AM POWER PLANT ELECTRICIAN Gender Identity Not on file Sexual Orientation Not on file documented as of this encounter Last Filed Vital Signs Vital Sign Reading Time Taken Comments Blood Pressure 109/72 05/30/2024 11:15 AM POWER PLANT ELECTRICIAN Pulse 77 05/30/2024 11:15 AM POWER PLANT ELECTRICIAN Temperature 36.5 C (97.7 F) 05/30/2024 10:21 AM POWER PLANT ELECTRICIAN Respiratory Rate 16 05/30/2024 10:21 AM POWER PLANT ELECTRICIAN Oxygen Saturation 95% 05/30/2024 10:21 AM POWER PLANT ELECTRICIAN Inhaled Oxygen Concentration - - Weight - - Height - - Body Mass Index - - documented in this encounter Patient Instructions * Patient Instructions* Arlene Moses RN - 05/30/2024 8:00 AM POWER PLANT ELECTRICIAN Dear Gianna Hernández Thank you for choosing [facility] ([facility]) for your transfusion. The following information is a summary of our appointment as well as important reminders. If you have any questions on your upcoming Specialty Infusion appointments, please call scheduling at [phone]. It was a pleasure taking care of you today. Sincerely, [facility] [address] [place] [id number] R PLANT ELECTRICIAN * Attachments The following attachments cannot be sent through Care Everywhere. * Blood Transfusions: General Info (Tajik) documented in this encounter Progress Notes * Arlene Moses RN - 05/30/2024 8:00 AM CST Blood Product Transfusion Nursing Note: Gianna Hernández presents today to [facility] for a blood transfusion. During today's [facility] appointment orders from Dr Samuel were completed. Progress note: ID verified by name and . Assessment completed. Vitals were stable throughout time in [facility]. Verbal education given to patient/appliance service representative regarding transfusion and possible side effects. Patient/appliance service representative verbalized understanding. Shotgun Shell Loading Machine Operator present during visit today: Not Applicable. All [...] Discharge instructions were reviewed with patient Yes Patient/appliance service representative verbalized understanding of discharge instructions and [...] By Arlene Moses RN Alyssa Sakhitab-Kerestes, RN R PLANT ELECTRICIAN documented in this encounter Plan of Treatment Not on file documented as of this encounter Goals Goal Patient Goal Type Associated Problems Recent Progress Patient-Stated? 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) History of transfusion PREPARE RED BLOOD CELLS (UNIT) Routine 05/29/2024 5:12 PM POWER PLANT ELECTRICIAN documented in this encounter Results * Transfuse red blood cells (unit), Sickle Cell (Hgb S) Negative (05/30/2024 10:24 AM POWER PLANT ELECTRICIAN) Case Samuel MD BLOOD TRANSFUSION ORDERAB LES Final Result * Transfuse red blood cells (unit), 1 Units, Sickle Cell (Hgb S) Negative (05/30/2024 10:24 AM POWER PLANT ELECTRICIAN) Case Samuel MD BLOOD TRANSFUSION ORDERAB LES Final Result * Prepare red blood cells (unit) (05/29/2024 5:12 PM POWER PLANT ELECTRICIAN) Blood Component Type Red Blood Cells [facility] BLOOD BANK Product Code [id number] UU BLOO D BANK Unit Status Transfused UU BLOO D BANK Unit Number [id number] UU B LOOD BANK CROSSMATCH COMPATIBLE U BLOOD BANK CODING SYSTEM [id number] UU BLO OD BANK ISSUE DATE AND TIME [id number] U[facility] BLOOD BANK UNIT ABO/RH A- UU BLOOD BANK UNIT TYPE ISBT 0600 UU BL OOD BANK 05/29/2024 5:12 PM POWER PLANT ELECTRICIAN Case Samuel MD BLOOD BANK PRODUCT ORDERA BLES Final Result [facility] BLOOD BANK [address] [place] [address], [facility] documented in this encounter Visit Diagnoses [...] (H),History of transfusion $Given 05/30/2024 11:18 AM POWER PLANT ELECTRICIAN 5 mLs HYDROmorphone (DILAUDID) injection 2 mg 2 mg, Intravenous, EVERY 1 HOUR PRN, severe pain, moderate pain, Starting on Wed05/30/24 at 0833, For 3 dosesIndications:Sickle cell pain crisis (H) $Given 05/30/2024 10:56 AM POWER PLANT ELECTRICIAN 2 mg $Given 05/30/2024 9:44 AM POWER PLANT ELECTRICIAN 2 mg $Given 05/30/2024 8:39 AM POWER PLANT ELECTRICIAN 2 mg lactated ringers BOLUS 1,000 mL Intravenous, 1,000 mL, ONCE, at 500 mL/hr, Administer over 2 Hours, On Wed05/30/24 at 0845, For 1 doseIndications:Sickle cell pain crisis (H) $New Bag 05/30/2024 10:24 AM POWER PLANT ELECTRICIAN 500 mLs 500 mL/hr sodium chloride (PF) [...] (H),History of transfusion $Given 05/30/2024 11:18 AM POWER PLANT ELECTRICIAN 20 mLs $Given 05/30/2024 10:20 AM POWER PLANT ELECTRICIAN 20 mLs documented in this encounter Care Teams Legal Executive Assistant Relationship Specialty Start Date End Date No Ref-Primary, Physician PCP - General 03/15/24 06/17/24 Mor Ramsey Medical Student 04/03/24 Case Samuel MD [address] [place] [address], [address] [place] [address] Assigned Pediatric Specialist Provider 05/18/24 Juhi Benson, RN Specialty [facility] Hematology & Oncology 05/29/24 documented as of this encounter
--- OUTSIDE RECORDS SUMMARY | 2024-06-22 01:09 | XMS_ITS | Encounter Summary ---
Author Organization [place] Address [address] [place] [address] Care Team Providers Care Account Coordinator Name Role Phone No Ref-Primary, Physician Primary Care Provider Mor Ramsey Unavailable Unavailable Case Samuel MD Unavailable [phone] Juhi Benson RN Unavailable Unavailable Reason for Visit * Reason Comments Chest Pain Sickle Cell Pain Crisis Encounter Details Date Type Department Care Team (Late st Contact Info) Description 06/03/2024 3:22 PM SAP SENIOR DEVELOPER - 06/03/2024 5:30 PM SAP SENIOR DEVELOPER Emergency [facility] Emergency Room [facility] [place] [address] Jennifer Bell MD [address] [place] [address] Sickle cell pain crisis (H) Discharge Disposition: [...] on file Legal Sex Female 8:25 AM SAP SENIOR DEVELOPER Gender Identity Not on file Sexual Orientation Not on file documented as of this encounter Last Filed Vital Signs Vital Sign Reading Time Taken Comments Blood Pressure 117/57 06/03/2024 5:00 PM SAP SENIOR DEVELOPER Pulse 96 06/03/2024 5:00 PM SAP SENIOR DEVELOPER Temperature 36.3 C (97.4 F) 06/03/2024 3:23 PM SAP SENIOR DEVELOPER Respiratory Rate 17 06/03/2024 5:00 PM SAP SENIOR DEVELOPER Oxygen Saturation 96% 06/03/2024 5:00 PM SAP SENIOR DEVELOPER Inhaled Oxygen Concentration - - Weight 52.2 kg (115 lb) 06/03/2024 3:23 PM SAP SENIOR DEVELOPER Height 154.9 cm (5' 1) 06/03/2024 3:23 PM SAP SENIOR DEVELOPER Body Mass Index 21.73 06/03/2024 3:23 PM SAP SENIOR DEVELOPER documented in this encounter Discharge Instructions * Attachments The following attachments cannot be sent through Care Everywhere. * Sickle Cell Crisis (Arabic) documented in this encounter Medications at Time [...] testing initially patient had labs done at [facility] ER earlier this morning as well [...] external records: External records reviewed?: Outpatient Record: [facility] today (06/03/24) Care impacted by chronic illness:Other: Sickle Cell Disease Did you consider but not order tests?: Work up considered but not performed and documented in chart, if applicable Did you interpret images independently?: Independent interpretation of ECG and images noted in documentation, when applicable. Consultation discussion with other provider:Did you involve another provider (contaminated land consultant, , pharmacy, etc.)?: No Discharge. I [...] 10-20 mL (10 mLs Intracatheter $Given 06/03/24 0294) heparin lock flush 10 unit/mL injection 5-10 [...] her sickle cell pain. Patient presented to [facility] this morning due to sickle cell crisis and has labs, covid, flu, RSV, and chest x-ray which were all negative. She usually visits [facility] ED when her pain presents but she did not want to drive far with the [employer]. According to patient, they didn't believe her sickle cell disease, so they discharged patient with no stronger pain medications so she decided to come here. Patient is afebrile. There were no other concerns/complaints at this time. 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 [...] Rate 85 BPM Atrial Rate 85 BPM SC Interval 136 ms QRS Duration 82 ms QT 382 ms QTc 454 ms P [place] 54 degrees R AXIS 72 degrees T [place] 50 degrees Interpretation ECG Sinus rhythm Nonspecific T wave abnormality Abnormal ECG When compared with ECG of 27-May-2024 12:12, No significant change was found Confirmed by SEE ED PROVIDER NOTE FOR, ECG INTERPRETATION (4000), dictionary editor BEN PRAKASH ([id number]) on 06/03/2024 3:58:10 PM EKG: Performed at: 03-Jun-2024 15:24:43 Impression: Sinus rhythm, nonspecific T wave abnormality, abnormal ECG Rate: 85 Rhythm: Sinus [place]: 72 SC Interval: 136 QRS Interval: 82 QTc Interval: [...] behalf by Alex Parsons, a trained medical office receptionist assistant. This document has been checked and approved by the attending provider. Jennifer Bell MD Emergency Medicine [facility] EMERGENCY ROOM [address] [facility] [address] Dept: [phone] Jennifer Bell MD 06/03/24 1708 SENIOR DEVELOPER * Nedra Martin RN - 06/03/2024 3:23 PM CST Pt c/o a possible sickle cell crisis with right sided chest pain that radiates to the left side. The pt did attempt to try using her home medication of diluadid of 4 mg without relief. Was just seen at [facility]. Pt has a port. Triage Assessment (Adult) [...] WDL WDL Cognitive/Neuro/Behavioral WDL Cognitive/Neuro/Behavioral WDL WDL SENIOR DEVELOPER documented in this encounter Plan of Treatment Not on file documented as of this encounter Goals Goal Patient Goal Type Associated Problems Recent Progress Patient-Stated? Author Pain Management General On track( 025 12:40 PM SAP SENIOR DEVELOPER) Yes Juhi Benson, RN Note: Goal Statement: [...] WITH MUSE MAHOGANYShawanda,SJO,WWRocio STAT 06/03/2024 3:24 PM SAP SENIOR DEVELOPER documented in this encounter Results * ECG 12-LEAD WITH MUSE (LHE) (06/03/2024 3:24 PM SAP SENIOR DEVELOPER) Systolic Blood Pressure 131 mmHg RADIOLOGY RESULTS Diastolic Blood Pressure 76 mmHg RADIOLOGY RESULTS Ventricular Rate 85 BPM RAD IOLOGY RESULTS Atrial Rate 85 BPM RADIOLOG Y RESULTS SC Interval 136 ms RADIOLOG Y RESULTS QRS Duration 82 ms RADIOLO GY RESULTS QT 382 ms RADIOLOGY RESULTS QTc 454 ms RADIOLOGY RESULTS P [place] 54 degrees RADIOLOGY RESULTS R AXIS 72 degrees RADIOLOGY RESULTS T [place] 50 degrees RADIOLOGY RESULTS Interpretation ECG Sinus rhythm Nonspecific T wave abnormality Abnormal ECG When compared with ECG of 27-May-2024 12:12, No significant change was found Confirmed by SEE ED PROVIDER NOTE FOR, ECG INTERPRETATION (4000), dictionary editor BEN PRAKASH ([id number]) on 06/03/2024 3:58:10 PM RADIOLOGY RESULTS 06/03/2024 3:24 PM SAP SENIOR DEVELOPER 06/03/2024 3:58 PM SAP SENIOR DEVELOPER us Deshawn Arredondo MD ECG ORDERABLES Edited [...] For 1 dose $Given 06/03/2024 4:18 PM SAP SENIOR DEVELOPER 50 mg heparin lock flush 10 unit/mL [...] the heparin flush. $Given 06/03/2024 5:20 PM SAP SENIOR DEVELOPER 5 mLs heparin lock flush 100 unit/mL [...] For 3 doses $Given 06/03/2024 4:48 PM SAP SENIOR DEVELOPER 2 mg $Given 06/03/2024 3:46 PM SAP SENIOR DEVELOPER 2 mg lactated ringers BOLUS 1,000 mL Intravenous, 1,000 mL, ONCE, at 500 mL/hr, Administer over 2 Hours, On 06/03/24 at 1530, For 1 dose $New Bag 06/03/2024 3:51 PM SAP SENIOR DEVELOPER 1,000 mLs 500 mL/hr ondansetron (ZOFRAN) injection 8 mg 8 mg, Intravenous, ONCE, Administer over 2-5 Minutes, On 06/03/24 at 1530, For 1 dose $Given 06/03/2024 3:46 PM SAP SENIOR DEVELOPER 8 mg sodium chloride (PF) 0.9% PF [...] each port lumen. $Given 06/03/2024 3:51 PM SAP SENIOR DEVELOPER 10 mLs documented in this encounter Active and Recently Administered Medications Times are shown in SAP SENIOR DEVELOPER. Scheduled Medication Order 06/01/2024 06/02/2024 06/03/2024 diphenhydrAMINE [...] lumen documented in this encounter Care Teams Account Coordinator Relationship Specialty Start Date End Date No Ref-Primary, Physician PCP - General 03/15/24 06/17/24 Mor Ramsey Medical Student 04/03/24 Case Samuel MD [address] [place] [address] 484, [address] [place] [address] Assigned Pediatric Specialist Provider 05/18/24 Juhi Benson, SOFIA Specialty Bilingual Teacher Assistant Hematology & Oncology 05/29/24 documented as of this encounter
--- OUTSIDE RECORDS SUMMARY | 2024-06-22 01:09 | XMS_ITS | Encounter Summary ---
Author Organization [place] Address [facility] [place] [address] Care Team Providers Care Corporate Consultant Name Role Phone No Ref-Primary, Physician Primary Care Provider Mor Ramsey Unavailable Unavailable Case Samuel MD Unavailable [phone] Juhi Benson RN Unavailable Unavailable Reason for Referral * Mental Health Outpatient (Urgent: 3-5 Days) - Pending Review Specialty Diagnoses / Procedures Referred By Contac t Referred To Contact Behavioral Health Diagnoses Severe episode of recurrent major depressive disorder, without psychotic features (H) Case Samuel MD [address] [facility] [address], [address] [place] [address] Phone: tel: fax: Referral ID Status Reason Start Date Expiration Date V isits Requested Visits Authorized [id number] Pending Review 05/29/2024 05/29/2025 1 1 Question Answer Services: Assess/Evaluate for appropriate service (non-medication assessment) My Clinical Question Is: History of chronic pain with depression as major component combined with sickle cell disease and difficulty adjusting to [place]. Requesting evaluation for mental health diagnosis and management. Patient Scheduling Instructions: [facility] will call you to coordinate your care as prescribed by your provider. If you don't hear from a senior account representative within 2 business days, please call [...] plan with any benefit or coverage questions. [facility] will call you to coordinate your care as prescribed by your provider. If you don't hear from a senior account representative within 2 business days, please call . E INFORMATICIST Reason for Visit * Reason Comments Port Draw Labs drawn via port by RN in lab, vitals taken. Oncology Clinic Visit RTN Sickle cell Encounter Details Date Type Department Care Team (Late st Contact Info) Description 05/29/2024 11:30 AM NURSE INFORMATICIST Oncology Visit [facility] [address] [place] [address] Case Samuel MD [address] [place] [address] [address], [address] [place], [place] [id number] Severe episode of recurrent major depressive disorder, [...] on file Legal Sex Female 8:25 AM NURSE INFORMATICIST Gender Identity Not on file Sexual Orientation Not on file documented as of this encounter Last Filed Vital Signs Vital Sign Reading Time Taken Comments Blood Pressure 98/67 05/29/2024 11:09 AM NURSE INFORMATICIST Pulse 106 05/29/2024 11:09 AM NURSE INFORMATICIST Temperature 37.1 C (98.7 F) 05/29/2024 11:09 AM NURSE INFORMATICIST Respiratory Rate 18 05/29/2024 11:09 AM NURSE INFORMATICIST Oxygen Saturation 96% 05/29/2024 11:09 AM NURSE INFORMATICIST Inhaled Oxygen Concentration - - Weight 54.6 kg (120 lb 6.4 oz) 05/29/2024 11:09 AM NURSE INFORMATICIST Height - - Body Mass Index 22.75 05/29/2024 12:01 AM NURSE INFORMATICIST documented in this encounter Progress Notes * Csae Samuel MD - 05/29/2024 11:30 AM CST [...] it has been hard to transition to [place], especially in winter with a toddler. She [...] She said that she was born in [place] but moved throughout her childhood because her dad was in the . She is the youngest of 9 children she said, though she is the only one with sickle cell disease. Among other places, she was living in [place] for a time and then moved to [place]. It was there that shemet her boyfriend. She ultimately moved back to [place] and he came with her. It was there that they had a daughter Chanda, now 2 years old. That was a difficult for her, and she feelslike she never wants to be again. She was living in [place], [place] and receiving care at [facility], though she did not get the sense that microsystems engineer there was super comfortable with sickle cell [...] about 3 weeks ago. She moved to [place] about 2 months ago. Her boyfriend is [...] worked up for symptomatic gallstones back in [place], but there were some delays in getting a cholecystectomy and by the time it was getting scheduled, they were moving to [place]. She reports that she has had a [...] them both so she can be a [id number] mom. Sickle Cell Disease Comprehensive Checklist Stroke/silent [...] titrate as needed and notify the primary microsystems engineer via [employer] message if changes to the plan below are needed. Also please note that there is a mental health component to her pain, particularly in terms of adjustment to [place] which is likely to make her pain worse.. 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 Functional asplenia Gallstones Hb-SS disease without [...] Concern Not on file Social History Narrative Liwf-ej-[id number] momSheryl Recently moved to [place] from [place], [place]. She is 1 of 9 [...] Social Connections: Socially Integrated (03/28/2024) [facility] [employer] [facility] Do you often [...] Rate 86 BPM Atrial Rate 86 BPM MS Interval 154 ms QRS Duration 78 ms QT 370 ms QTc 442 ms P Emigrant 18 degrees R AXIS 55 degrees T Emigrant 25 degrees Interpretation ECG Sinus rhythm Nonspecific T wave abnormality Abnormal ECG When compared with ECG of 14-May-2024 22:12, Nonspecific T wave abnormality now evident in Inferior leads Confirmed by SEE ED PROVIDER NOTE FOR, ECG INTERPRETATION (4000), newspaper copy editor Neeraj Allison ([id number]) on 05/20/2024 7:48:17 AM Basic metabolic panel [...] Absolute NRBCs 0.2 10e3/uL Extra Green Top ([place] Heparin) Tube Collection Time: 05/20/24 9:09 AM Result Value Ref Range Hold Specimen [facility] Basic metabolic panel Collection Time: 05/20/24 [...] Rate 103 BPM Atrial Rate 103 BPM MS Interval 124 ms QRS Duration 80 ms QT 316 ms QTc 413 ms P Emigrant 82 degrees R AXIS 90 degrees T Emigrant 70 degrees Interpretation ECG Sinus tachycardia Rightward axis Borderline ECG When compared with ECG of 20-May-2024 07:36, Nonspecific T wave abnormality no longer evident in Anterior leads Confirmed by SEE ED PROVIDER NOTE FOR, ECG INTERPRETATION (4000), newspaper copy editor Leticia Warner ([id number]) on 05/22/2024 4:13:58 PM Basic metabolic panel [...] None Seen Elliptocytes Slight (A) None Seen Ziegler-Lingle Bodies Present (A) None Seen Polychromasia Slight (A) None Seen RBC Fragments Slight (A) None Seen Sickle Cells Moderate (A) None Seen Target Cells Slight (A) None Seen ECG 12-LEAD WITH MUSE (LHE) Collection Time: 05/23/24 6:54 PM Result Value Ref Range Systolic Blood Pressure mmHg Diastolic Blood Pressure mmHg Ventricular Rate 77 BPM Atrial Rate 77 BPM MS Interval 160 ms QRS Duration 82 ms QT 362 ms QTc 409 ms P Emigrant 61 degrees R AXIS 92 degrees T Emigrant 49 degrees Interpretation ECG Sinus rhythm Rightward axis Borderline ECG When compared with ECG of 22-May-2024 15:14, Nonspecific T wave abnormality no longer evident in Inferior leads Confirmed by SEE ED PROVIDER NOTE FOR, ECG INTERPRETATION (4000), newspaper copy editor SELMA GARRISON ([id number]) on 05/23/2024 7:30:33 PM CBC (+ platelets, [...] Rate 91 BPM Atrial Rate 91 BPM MS Interval 142 ms QRS Duration 80 ms QT 352 ms QTc 432 ms P Emigrant 39 degrees R AXIS 62 degrees T Emigrant 23 degrees Interpretation ECG Sinus rhythm Nonspecific T wave abnormality Abnormal ECG When compared with ECG of 23-May-2024 18:54, Nonspecific T wave abnormality now evident in Inferior leads Nonspecific T wave abnormality now evident in Anterior leads Confirmed by SEE ED PROVIDER NOTE FOR, ECG INTERPRETATION (4000), newspaper copy editor BEN PRAKASH ([id number]) on 05/27/2024 12:22:37 PM Comprehensive metabolic panel [...] female who recently started receiving care at [facility] for sickle cell disease, HbSS (Apr 2024). She has several comorbidities related to sickle cell disease, including Chronic pain, AVN of the left hip, history of pulmonary embolism, history of transfusions with iron overload, history of stroke(details unclear), right eye retinopathy, acute on chronic anemia, gallstones, and a history of acute chest syndrome. She has been a regular visitor to the [facility] emergency department as well, and I have [...] just the SCD. Her adjustment to the [facility] has been challenging, particularly at this time of year and being at home with their daughter Today, we focused on the mental health, including both psychological and psychiatric care. In my discussions with the emergency department colleagues at [facility], I stressed that a sustainable improvement cannot [...] think outside the box. - Mental health tracer lathe set up operator referral placed HbSS Disease with several complications [...] around the hip and femur strong. -Orthopedic tracer lathe set up operator referral placed. Will defer to them for [...] per the note Case Samuel MD Classical Plant Floor Automation Manager Division of Hematology, Oncology, and Transplantation [facility] [place] The longitudinal plan of care for the diagnosis(es)/condition(s) as documented were addressed during this visit. Due to the added complexity in care, I will continue to support Gianna in the subsequent management and with ongoing continuity of care. E INFORMATICIST documented in this encounter Nursing Notes * [...] checked into next appt. Jenifer Sheffield RN E INFORMATICIST * Laura Rg - 05/29/2024 11:30 AM [...] not needed today. Pharmacy name entered into [facility]: [facility] [address] [place], [place] - [phone] [facility] [place], [place] - [address] [place] [address] Frailty Screening: Is the patient here for a new oncology consult visit in cancer care? 2. No Clinical concerns:Provider came in during rooming. Laura Rg E INFORMATICIST documented in this encounter Plan of Treatment Scheduled Referrals Name Type Priority Associated Diagnoses Orde r Schedule Adult Mental Health Center Machine Operator Referral Referral Urgent: 3-5 Days Severe episode of recurrent major depressive disorder, without psychotic features (H) Expected: 05/29/2024 (Approximate), Expires: 05/29/2025 documented as of this encounter Goals Goal Patient Goal Type Associated Problems Recent Progress Patient-Stated? Author Pain Management General On track( 025 12:40 PM NURSE INFORMATICIST) Yes Juhi Benson, SOFIA Note: Goal Statement: [...] AND PLATELET MORPHOLOGY Routine 05/29/2024 11:23 AM NURSE INFORMATICIST CBC WITH PLATELETS AND DIFFERENTIAL Routine 05/29/2024 11:23 AM NURSE INFORMATICIST TYPE AND SCREEN, ADULT Add-On 11:23 AM NURSE INFORMATICIST History of transfusion BILL ONLY- CAPILLARY ELECTROPHORESIS Routine 05/29/2024 11:23 AM NURSE INFORMATICIST BILL ONLY- SICKLE SOLUBILITY BILL Routine 05/29/2024 11:23 AM NURSE INFORMATICIST ROUTINE UA WITH MICROSCOPIC REFLEX TO CULTURE Routine 05/29/2024 11:23 AM NURSE INFORMATICIST CBC WITH PLATELETS & DIFFERENTIAL Routine 05/29/2024 11:23 AM NURSE INFORMATICIST GENOTYPE RED BLOOD CELL Routine 05/29/19 11:23 AM NURSE INFORMATICIST History of transfusion RETICULOCYTE COUNT Routine 05/29/2024 11 :23 AM NURSE INFORMATICIST HEMOGLOBIN EVAL REFLEX TO ELP OR RBC SOLUBILITY Routine 05/29/2024 11:23 AM NURSE INFORMATICIST FERRITIN Routine 05/29/2024 11:23 AM NURSE INFORMATICIST COMPREHENSIVE METABOLIC PANEL Routine 05/29/2024 11:23 AM NURSE INFORMATICIST ABO/RH TYPE AND SCREEN Routine 11:23 AM NURSE INFORMATICIST History of transfusion URINE CULTURE Routine 05/29/2024 11:23 AM NURSE INFORMATICIST documented in this encounter Results * HGB Eval Reflex to ELP or RBC Solubility (05/29/2024 11:23 AM NURSE INFORMATICIST) Alpha Globin (HBA1 and HBA2) DD Bill Billed 05/31/2024 2:46 PM NURSE INFORMATICIST [facility] Comment: Performed By: [facility] [address] [place] [address] Automotive Consultant: Devon Healy MD, PhD CLIA Number: [id number] Blood VENOUS LINE / Unknown IVAD (Port) / Unknown 05/29/2024 11:23 AM NURSE INFORMATICIST 05/29/2024 11:30 AM NURSE INFORMATICIST us Case Samuel MD LAB CHARGE PERFORMABLES F inal Result [employer] [address] [place] [phone], [facility] [phone] * Bill Only- Sickle Solubility Bill (05/29/2024 11:23 AM NURSE INFORMATICIST) Sickle Solubility Reflex Bill Billed 05/31/2024 2:46 PM NURSE INFORMATICIST [facility] Comment: Performed By: [facility] [address] [place] [address] Automotive Consultant: Devon Healy MD, PhD CLIA Number: [id number] Blood VENOUS LINE / Unknown IVAD (Port) / Unknown 05/29/2024 11:23 AM NURSE INFORMATICIST 05/29/2024 11:30 AM NURSE INFORMATICIST Case Samuel MD LAB CHARGE PERFORMABLES F inal Result Performing Organization Address City/[facility]/ZIP Co de Phone Number [facility] [address] [place] [address], [facility] [phone] * Adult Type and Screen (05/29/2024 11:23 AM NURSE INFORMATICIST) ABO/RH(D) A POS 05/28/2024 6:00 PM NURSE INFORMATICIST [facility] Antibody Screen Negative Negative 05/28/2024 6:00 PM NURSE INFORMATICIST [facility] SPECIMEN EXPIRATION DATE [id number] 05/28/2024 6:00 PM NURSE INFORMATICIST [facility] Blood VENOUS LINE / Unknown IVAD (Port) / Unknown 05/29/2024 11:23 AM NURSE INFORMATICIST 05/29/2024 11:29 AM NURSE INFORMATICIST Case Samuel MD LAB - BLOOD BANK TEST ORD ER Final Result Performing Organization Address City/[facility]/ZIP Co de Phone Number [facility] [address] [place] [address] * Urine Culture (05/29/2024 11:23 AM NURSE INFORMATICIST) Culture <10,000 CFU/mL Mixture of Urogenital Vickie 05/30/2024 9:45 AM NURSE INFORMATICIST [facility] Urine URINE SPECIMEN OBTAINED BY CLEAN CATCH PROCEDURE / Unknown Non-blood Collection / Unknown 05/29/2024 11:23 AM NURSE INFORMATICIST 05/29/2024 11:41 AM NURSE INFORMATICIST Case Samuel MD LAB - MICRO GENERAL ORDER SYD Final Result [facility] Inf. Diseases Diag. Lab [address] [facility], [address] [place] [address] * (ABNORMAL) RBC and Platelet Morphology (05/29/2024 11:23 AM NURSE INFORMATICIST) RBC Morphology Confirmed RBC Indices 05/29/2024 12:33 PM NURSE INFORMATICIST [facility] - CORE LAB Platelet Assessment Automated Count Confirmed. Platelet morphology is normal. Automated Count Confirmed. Platelet morphology is normal. 05/29/2024 12:33 PM NURSE INFORMATICIST [facility] - CORE LAB Polychromasia Moderate(A) None Seen 05/29/2024 12:33 PM NURSE INFORMATICIST [facility] - CORE LAB Sickle Cells Moderate(A) None Seen 05/29/2024 12:33 PM NURSE INFORMATICIST [facility] - CORE LAB Target Cells Slight(A) None Seen 05/29/2024 12:33 PM NURSE INFORMATICIST [facility] - CORE LAB Teardrop Cells Slight(A) None Seen 05/29/2024 12:33 PM NURSE INFORMATICIST [facility] - CORE LAB Blood VENOUS LINE / Unknown IVAD (Port) / Unknown 05/29/2024 11:23 AM NURSE INFORMATICIST 05/29/2024 11:29 AM NURSE INFORMATICIST Case Samuel MD LAB - BLOOD ORDERABLES Fi nal Result [facility] - CORE LAB [facility] [place] [address] [place] [address] 1st [place] [address] * (ABNORMAL) CBC with platelets and differential (05/29/2024 11:23 AM NURSE INFORMATICIST) WBC Count 15.8(H) 4.0 - 11.0 10e3/uL 05/29/2024 12:37 PM NURSE INFORMATICIST [facility] - CORE LAB RBC Count 2.11(L) 3.80 - 5.20 10e6/uL 05/29/2024 12:37 PM NURSE INFORMATICIST [facility] - CORE LAB Hemoglobin 6.7(LL) 11.7 - 15.7 g/dL 05/29/2024 12:37 PM NURSE INFORMATICIST [facility] - CORE LAB Hematocrit 19.2(L) 35.0 - 47.0 % 05/29/2024 12:37 PM [facility] - CORE LAB MCV 91 78 - 100 fL 05/29/2024 12:37 PM [facility] - CORE LAB MCH 31.8 26.5 - 33.0 pg 05/29/2024 12:37 PM [facility] - CORE LAB MCHC 34.9 31.5 - 36.5 g/dL 05/29/2024 12:37 PM [facility] - C[facility] LAB RDW 23.1(H) 10.0 - 15.0 % 05/29/2024 12:37 PM [facility] - CORE LAB Platelet Count 417 150 - 450 10e3/uL 05/29/2024 12:37 PM [facility] - [facility] LAB % Neutrophils 56 % 05/29/2024 12:37 PM [facility] % Lymphocytes 25 % 05/29/2024 12:37 PM [facility] - C[facility] LAB % Monocytes 15 % 05/29/2024 12:37 PM [facility] - [facility] % Eosinophils 2 % 05/29/2024 12:37 PM [facility] % Basophils 1 % 05/29/2024 12:37 PM [facility] - [facility]ORE LAB % Immature Granulocytes 1 % 05/29/2024 12:37 PM [facility] NRBCs per 100 WBC 2(H) <1 /100 025 12:37 PM [facility] Absolute Neutrophils 8.8(H) 1.6 - 8.3 10e3/uL 05/29/2024 12:37 PM [facility] - CORE LAB Absolute Lymphocytes 4.0 0.8 - 5.3 10e3/uL 05/29/2024 12:37 PM [facility] Absolute Monocytes 2.4(H) 0.0 - 1.3 10e3/uL 05/29/2024 12:37 PM [facility] - [facility] LAB Absolute Eosinophils 0.3 0.0 - 0.7 10e3/uL 05/29/2024 12:37 PM [facility] Absolute Basophils 0.2 0.0 - 0.2 10e3/uL 05/29/2024 12:37 PM [facility] Absolute Immature Granulocytes 0.2 <=0.4 10e3/uL 05/29/2024 12:37 PM NURSE INFORMATICIST [facility] - CORE LAB Absolute NRBCs 0.2 10e3/uL 05/29/2024 12:37 PM NURSE INFORMATICIST [facility] - CORE LAB Blood VENOUS LINE / Unknown IVAD (Port) / Unknown 05/29/2024 11:23 AM NURSE INFORMATICIST 05/29/2024 11:29 AM NURSE INFORMATICIST Case Samuel MD LAB - BLOOD ORDERABLES Fi nal Result [facility] - CORE LAB [facility] Clinics and Surgery [facility] [address] [facility] 1st [place] [address] * Genotype Red Blood Cell (05/29/2024 11:23 AM NURSE INFORMATICIST) Pathologist [facility] See Scanned Result GENOTYPE RED BLOOD CELL-Scanned 05/31/2024 10:16 AM NURSE INFORMATICIST [facility] Blood VENOUS LINE / Unknown IVAD (Port) / Unknown 05/29/2024 11:23 AM NURSE INFORMATICIST 05/29/2024 11:29 AM NURSE INFORMATICIST us Case Samuel MD LAB - BLOOD ORDERABLES Fi nal Result [facility] [address] [place] [address], [facility] [phone] * (ABNORMAL) HGB Eval Reflex to ELP or RBC Solubility (05/29/2024 11:23 AM NURSE INFORMATICIST) Hemoglobin A 15.0(L) 95.0 - 97.9 % 05/31/2024 2:46 PM NURSE INFORMATICIST [facility] Hemoglobin A2 3.0 2.0 - 3.5 % 05/31/2024 2:46 PM NURSE INFORMATICIST [facility] Hemoglobin F 10.8(H) 0.0 - 2.1 % 05/31/2024 2:46 PM NURSE INFORMATICIST [facility] Hemoglobin S 71.2(H) 0.0 - 0.0 % 05/31/2024 2:46 PM NURSE INFORMATICIST [facility] Hemoglobin C 0.0 0.0 - 0.0 % 05/31/2024 2:46 PM NURSE INFORMATICIST [facility] Hemoglobin E 0.0 0.0 - 0.0 % 05/31/2024 2:46 PM NURSE INFORMATICIST [facility] Hemoglobin - Other 0.0 0.0 - 0.0 % 05/31/2024 2:46 PM NURSE INFORMATICIST [facility] Hemoglobin Evaluation See Note 05/31/2024 2:46 PM NURSE INFORMATICIST [facility] Comment: Impression: Hb S present [...] Globin (HBA1 and HBA2) Deletion/Duplication ([facility] test #5651066) should be considered. Hb S/beta-plus thalassemia is typically characterized by more Hb S than Hb A with the presence of microcytosis. If microcytosis is present and Hb S/beta-plus thalassemia is suspected, Beta Globin (HBB) Sequencing ([facility] test #[id number]) is suggested. Hemoglobin analysis should be offered [...] developed and its performance characteristics determined by [facility]. It has not been cleared or approved by the U.S. Food and Drug Administration. This test was performed in a CLIA-certified laboratory and is intended for clinical purposes. Sickle Cell Solubility Reflex Positive(A) 05/31/2024 2:46 PM NURSE INFORMATICIST [facility] Comment: INTERPRETIVE INFORMATION: Sickle Cell Solubility Reflex Not Performed: Solubility testing for Hemoglobin S not indicated. 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 Additional charges apply. Conf Previous: Positive for Hemoglobin S by HPLC. Solubility testing performed previously and not repeated with this submission. Hgb Capillary Electrophoresis Reflex Performed 05/31/2024 2:46 PM NURSE INFORMATICIST [facility] Comment: INTERPRETIVE INFORMATION: Hgb Capillary Electrophoresis Reflex Not Performed: Confirmation by Capillary Electrophoresis not indicated. Performed: Results confirmed by Capillary Electrophoresis. Additional charges apply. Conf Previous: Capillary Electrophoresis confirmation performed as part of a previous submission. Confirmation not repeated with this submission. Performed By: [facility] [address] [place] [id number] Automotive Consultant: Devon Healy MD, PhD CLIA Number: [id number] Blood VENOUS LINE / Unknown IVAD (Port) / Unknown 05/29/2024 11:23 AM NURSE INFORMATICIST 05/29/2024 11:30 AM NURSE INFORMATICIST Case Samuel MD LAB - BLOOD ORDERABLES Fi nal Result Performing Organization Address City/[facility]/ZIP Co de Phone Number [employer] [address] [place] [phone] [phone] * (ABNORMAL) Ferritin (05/29/2024 11:23 AM NURSE INFORMATICIST) Pathologist [facility] Ferritin 1,559(H) 6 - 175 ng/mL 05/29/2024 12:43 PM NURSE INFORMATICIST [facility] - CORE LAB Blood VENOUS LINE / Unknown IVAD (Port) / Unknown 05/29/2024 11:23 AM NURSE INFORMATICIST 05/29/2024 11:29 AM NURSE INFORMATICIST Case Samuel MD LAB - BLOOD ORDERABLES Fi nal Result [facility] - CORE LAB [facility] [address] 1st [place] [address] * (ABNORMAL) Routine UA with micro reflex to culture (05/29/2024 11:23 AM NURSE INFORMATICIST) Color Urine Yellow Colorless, Straw, Light Yellow, Yellow 05/29/2024 11:41 AM NURSE INFORMATICIST [facility] - CORE LAB Appearance Urine Slightly Cloudy(A) Clear 05/29/2024 11:41 AM [facility] - [facility]ORE LAB Glucose Urine Negative Negative mg/dL 05/29/2024 11:41 AM [facility] - [facility] LAB Bilirubin Urine Negative Negative 11:41 AM [facility] - [facility] LAB Ketones Urine Negative Negative mg/dL 05/29/2024 11:41 AM [facility] - [facility]ORE LAB Specific [place] Urine 1.013 1.003 - 1.035 05/29/2024 11:41 AM [facility] - [facility] LAB Blood Urine Negative Negative 05/29/2024 11:41 AM [facility] - [facility] pH Urine 7.0 5.0 - 7.0 05/29/2024 11:41 AM [facility] - [facility] Protein Albumin Urine Negative Negative mg/dL 05/29/2024 11:41 AM [facility] - [facility] LAB Urobilinogen Urine Normal Normal, 2.0 mg/dL 05/29/2024 11:41 AM [facility] Nitrite Urine Negative Negative 05/29/2024 11:41 AM [facility] Leukocyte Esterase Urine Moderate(A) Negative 05/29/2024 11:41 AM NURSE INFORMATICIST [facility] Mucus Urine Present(A) None Seen /LPF 05/29/2024 11:41 AM [facility] RBC Urine 6(H) <=2 /HPF 05/29/2024 11:41 AM [facility] WBC Urine 3 <=5 /HPF 05/29/2024 11:41 AM [facility] Squamous Epithelials Urine 18(H) <=1 /HPF 05/29/2024 11:41 AM [facility] Urine URINE SPECIMEN OBTAINED BY CLEAN CATCH PROCEDURE / Unknown Non-blood Collection / Unknown 05/29/2024 11:23 AM NURSE INFORMATICIST 05/29/2024 11:29 AM NURSE INFORMATICIST Narrative [facility] - [facility] - 05/29/2024 11:41 AM NURSE INFORMATICIST Urine Culture ordered based on laboratory criteria us Case Samuel MD LAB - URINE ORDERABLES Fi nal Result [facility] - CORE [facility] [address] 1st [place] [address] * (ABNORMAL) Comprehensive metabolic panel (05/29/2024 11:23 AM [facility]) Sodium 139 135 - 145 mmol/L 05/29/2024 11:58 AM [facility] Potassium 4.2 3.4 - 5.3 mmol/L 05/29/2024 11:58 AM [facility] Carbon Dioxide (CO2) 24 22 - 29 mmol/L 05/29/2024 11:58 AM [facility] Anion Gap 10 7 - 15 mmol/L 05/29/2024 11:58 AM [facility] Urea Nitrogen 9.2 6.0 - 20.0 mg/dL 05/29/2024 11:58 AM [facility] Creatinine 0.75 0.51 - 0.95 mg/dL 05/29/2024 11:58 AM [facility] GFR Estimate >90 >60 mL/min/1.7 3m2 05/29/2024 11:58 AM [facility] Comment:eGFR calculated usin g 2020 CKD-EPI equation. Calcium 8.9 8.8 - 10.4 mg/dL 05/29/2024 11:58 AM [facility] Chloride 105 98 - 107 mmol/L 05/29/2024 11:58 AM [facility] Glucose 109(H) 70 - 99 mg/dL 05/29/2024 11:58 AM [facility] Alkaline Phosphatase 83 40 - 150 U/L 05/29/2024 11:58 AM [facility] AST 49(H) 0 - 45 U/L 05/29/2024 11:58 AM [facility] ALT 21 0 - 50 U/L 05/29/2024 11:58 AM [facility] Protein Total 7.3 6.4 - 8.3 g/dL 05/29/2024 11:58 AM [facility] Albumin 4.1 3.5 - 5.2 g/dL 05/29/2024 11:58 AM [facility] Bilirubin Total 2.2(H) <=1.2 mg/dL 05/29/2024 11:58 AM NURSE INFORMATICIST [facility] Blood VENOUS LINE / Unknown IVAD (Port) / Unknown 05/29/2024 11:23 AM NURSE INFORMATICIST 05/29/2024 11:29 AM NURSE INFORMATICIST Case Samuel MD LAB - BLOOD ORDERABLES Fi nal Result Performing Organization Address [facility] de Phone Number [facility] - [facility] - [address] [place] [address] * (ABNORMAL) Reticulocyte count (05/29/2024 11:23 AM NURSE INFORMATICIST) [facility] % Reticulocyte 29.8(H) 0.5 - 2.0 % 05/29/2024 12:00 PM NURSE INFORMATICIST [facility] - [facility] Absolute Reticulocyte 0.631(H) 0.025 - 0.095 10e6/uL 05/29/2024 12:00 PM NURSE INFORMATICIST [facility] Blood VENOUS LINE / Unknown IVAD (Port) / Unknown 05/29/2024 11:23 AM NURSE INFORMATICIST 05/29/2024 11:29 AM NURSE INFORMATICIST Case Samuel MD LAB - BLOOD ORDERABLES Fi nal Result Performing Organization Address [facility] de Phone Number [facility] [address] [place] [address] documented in this encounter Visit Diagnoses Diagnosis [...] Wed05/29/24 at 1130 $Given 05/29/2024 11:29 AM NURSE INFORMATICIST 5 mLs sodium chloride (PF) 0.9% PF flush 20 mL 20 mL, Intravenous, ONCE, On 05/29/24 at 1130, For 1 dose $Given 05/29/2024 11:30 AM NURSE INFORMATICIST 20 mLs documented in this encounter Care Teams Corporate Consultant Relationship Specialty Start Date End Date No Ref-Primary, Physician PCP - General 03/15/24 06/17/24 Mor Ramsey Medical Student 04/03/24 Case Samuel MD [address] [place] [address] 484, [address] [place] [address] Assigned Pediatric Specialist Provider 05/18/24 Juhi Benson, RN Specialty Refractory Grinder Operator Hematology & Oncology 05/29/24 documented as of this encounter
--- OUTSIDE RECORDS SUMMARY | 2024-06-22 01:09 | XMS_ITS | Encounter Summary ---
Author Organization [place] Address [address] [place] [address]. [place] [address] Care Team Providers Care Auditor Name Role Phone No Ref-Primary, Physician Primary Care Provider Mor Ramsey Unavailable Unavailable Case Samuel MD Unavailable [phone] Juhi Benson RN Unavailable Unavailable Encounter Details Date Type Department Care Team (Late st Contact Info) Description 05/29/2024 Orders Only [facility] [address] [place] [address] Juhi Benson, SOFIA Sickle cell [...] on file Legal Sex Female 8:25 AM NATURALIZATION EXAMINER Gender Identity Not on file Sexual Orientation Not on file documented as of this encounter Plan of Treatment Not on file documented as of this encounter Goals Goal Patient Goal Type Associated Problems Recent Progress Patient-Stated? Author Pain Management General On track( 025 12:40 PM NATURALIZATION EXAMINER) Yes Juhi Benson RN Note: Goal Statement: [...] crisis documented in this encounter Care Teams Auditor Relationship Specialty Start Date End Date No Ref-Primary, Physician PCP - General 03/15/24 06/17/24 Mor Ramsey Medical Student 04/03/24 Case Samule MD [address] [place] [address] [address], [address] [place] [address] Assigned Pediatric Specialist Provider 05/18/24 Juhi Benson, RN Specialty Herb Doctor Hematology & Oncology 05/29/24 documented as of this encounter
--- OUTSIDE RECORDS SUMMARY | 2024-06-22 01:09 | XMS_ITS | Encounter Summary ---
Author Organization [place] Address [address] [place] [id number] Care Team Providers Care Radio Electronics Officer Name Role Phone No Ref-Primary, Physician Primary Care Provider Mor Ramsey Unavailable Unavailable Case Samuel MD Unavailable [phone] Juhi Benson RN Unavailable Unavailable Reason for Visit * Reason Comments Sickle Cell Pain Crisis Encounter Details Date Type Department Care Team (Late st Contact Info) Description 05/31/2024 9:56 PM ASSOCIATE DIRECTOR CAREER SERVICES - 06/01/2024 12:46 AM [facility] Emergency [facility] Emergency Room [facility] [place] [address] Carley Riggins MD [address] [address] Sickle cell pain crisis (H) Discharge Disposition: [...] on file Legal Sex Female 8:25 AM ASSOCIATE DIRECTOR CAREER SERVICES Gender Identity Not on file Sexual Orientation Not on file documented as of this encounter Last Filed Vital Signs Vital Sign Reading Time Taken Comments Blood Pressure 118/63 06/01/2024 12:41 AM ASSOCIATE DIRECTOR CAREER SERVICES Pulse 71 06/01/2024 12:41 AM ASSOCIATE DIRECTOR CAREER SERVICES Temperature 36.7 C (98 F) 05/31/2024 9:39 PM ASSOCIATE DIRECTOR CAREER SERVICES Respiratory Rate 20 05/31/2024 9:39 PM ASSOCIATE DIRECTOR CAREER SERVICES Oxygen Saturation 98% 06/01/2024 12:41 AM ASSOCIATE DIRECTOR CAREER SERVICES Inhaled Oxygen Concentration - - Weight 54.4 kg (120 lb) 05/31/2024 9:39 PM ASSOCIATE DIRECTOR CAREER SERVICES Height 154.9 cm (5' 1) 05/31/2024 9:39 PM ASSOCIATE DIRECTOR CAREER SERVICES Body Mass Index 22.67 05/31/2024 9:39 PM ASSOCIATE DIRECTOR CAREER SERVICES documented in this encounter Discharge Instructions * Attachments The following attachments cannot be sent through Care Everywhere. * Sickle Cell Crisis (Swedish) documented in this encounter Medications at Time [...] chest. She recently moved to [place] from [place], and notes the difference in temperature may be exacerbating her symptoms. Patient denies any other complaints at this time. 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 Recently moved to [place] from [place], [place]. She is 1 of 9 [...] Social Connections: Socially Integrated (03/28/2024) [facility] [facility]ctions Do you often feel lonely [...] Automated Count Confirmed. Platelet morphology is normal. [place] Cells Slight (*) Elliptocytes Slight (*) [place] Bodies Present (*) Polychromasia Slight (*) Sickle [...] M.D. Emergency Medicine [facility] EMERGENCY ROOM [address] [facility] [phone] Dept: [phone] Carley Riggins MD 06/01/24 0048 CIATE DIRECTOR CAREER SERVICES * Aminata Farley RN - 05/31/2024 9:40 PM CST Pt is coming in with a sickle cell crisis. Pt was unable to nut picker her medication d/t pharmacy needing to order it. Tylenol last at 1700 Ibuprofen last at 2100 Triage Assessment (Adult) Row Name 05/31/242139 Triage Assessment Airway WDL WDL Respiratory WDL Respiratory WDL WDL Skin Circulation/Temperature WDL Skin Circulation/Temperature WDL WDL Cardiac WDL Cardiac WDL WDL Peripheral/Neurovascular WDL Peripheral Neurovascular WDL WDL Cognitive/Neuro/Behavioral WDL Cognitive/Neuro/Behavioral WDL WDL CIATE DIRECTOR CAREER SERVICES documented in this encounter Plan of Treatment Not on file documented as of this encounter Goals Goal Patient Goal Type Associated Problems Recent Progress Patient-Stated? Author Pain Management General On track( 025 12:40 PM ASSOCIATE DIRECTOR CAREER SERVICES) Yes Juhi Benson, RN Note: Goal Statement: [...] AND PLATELET MORPHOLOGY STAT 05/31/2024 10:21 PM ASSOCIATE DIRECTOR CAREER SERVICES CBC WITH PLATELETS AND DIFFERENTIAL STAT 05/31/2024 10:21 PM ASSOCIATE DIRECTOR CAREER SERVICES CBC WITH PLATELETS & DIFFERENTIAL STAT 05/31/2024 10:21 PM ASSOCIATE DIRECTOR CAREER SERVICES RETICULOCYTE COUNT STAT 05/31/2024 10 :21 PM ASSOCIATE DIRECTOR CAREER SERVICES BASIC METABOLIC PANEL STAT 05/31/2024 10:21 PM ASSOCIATE DIRECTOR CAREER SERVICES documented in this encounter Results * (ABNORMAL) RBC and Platelet Morphology (05/31/2024 10:21 PM ASSOCIATE DIRECTOR CAREER SERVICES) [facility] RBC Morphology Confirmed RBC Indices 05/31/2024 10:59 PM ASSOCIATE DIRECTOR CAREER SERVICES [facility] Platelet Assessment Automated Count Confirmed. Platelet morphology is normal. Automated Count Confirmed. Platelet morphology is normal. JARET 05/31/2024 10:59 PM ASSOCIATE DIRECTOR CAREER SERVICES [facility] Mary Cells Slight(A) None Seen JARET 05/31/2024 10:59 PM ASSOCIATE DIRECTOR CAREER SERVICES [facility] Elliptocytes Slight(A) None Seen JARET 05/31/2024 10:59 PM ASSOCIATE DIRECTOR CAREER SERVICES [facility] [place] Bodies Present(A) None Seen JARET 05/31/2024 10:59 PM ASSOCIATE DIRECTOR CAREER SERVICES [facility] Polychromasia Slight(A) None Seen JARET 05/31/2024 10:59 PM ASSOCIATE DIRECTOR CAREER SERVICES [facility] Sickle Cells Moderate(A) None Seen JARET 05/31/2024 10:59 PM ASSOCIATE DIRECTOR CAREER SERVICES [facility] Target Cells Slight(A) None Seen JARET 05/31/2024 10:59 PM ASSOCIATE DIRECTOR CAREER SERVICES [facility] Blood BLOOD SPECIMEN / Unknown Venipuncture / Unknown 05/31/2024 10:21 PM ASSOCIATE DIRECTOR CAREER SERVICES 05/31/2024 10:24 PM ASSOCIATE DIRECTOR CAREER SERVICES us Carley Riggins MD LAB - BLOOD ORDERABLES [place]iss [address]aza Result [facility] [address] [place] [address], [facility] * (ABNORMAL) CBC with platelets and differential (05/31/2024 10:21 PM ASSOCIATE DIRECTOR CAREER SERVICES) [facility] WBC Count 15.4(H) 4.0 - 11.0 10e3/uL 05/31/2024 10:55 PM [facility] RBC Count 2.73(L) 3.80 - 5.20 10e6/uL 05/31/2024 10:55 PM [facility] Hemoglobin 8.9(L) 11.7 - 15.7 g/dL 05/31/2024 10:55 PM [facility] Hematocrit 24.8(L) 35.0 - 47.0 % 05/31/2024 10:55 PM [facility] MCV 91 78 - 100 fL 05/31/2024 10:55 PM [facility] MCH 32.6 26.5 - 33.0 pg 05/31/2024 10:55 PM [facility] MCHC 35.9 31.5 - 36.5 g/dL 05/31/2024 10:55 PM [facility] RDW 21.2(H) 10.0 - 15.0 % 05/31/2024 10:55 PM [facility] Platelet Count 399 150 - 450 10e3/uL 05/31/2024 10:55 PM [facility] % Neutrophils 56 % 05/31/2024 10:55 PM [facility] % Lymphocytes 27 % 05/31/2024 10:55 PM [facility] % Monocytes 14 % 05/31/2024 10:55 PM [facility] % Eosinophils 1 % 05/31/2024 10:55 PM [facility] % Basophils 1 % 05/31/2024 10:55 PM [facility] % Immature Granulocytes 1 % 05/31/2024 10:55 PM [facility] NRBCs per 100 WBC 2(H) <1 /100 025 10:55 PM [facility] Absolute Neutrophils 8.7(H) 1.6 - 8.3 10e3/uL 05/31/2024 10:55 PM [facility] Absolute Lymphocytes 4.2 0.8 - 5.3 10e3/uL 05/31/2024 10:55 PM [facility] Absolute Monocytes 2.2(H) 0.0 - 1.3 10e3/uL 05/31/2024 10:55 PM [facility] Absolute Eosinophils 0.2 0.0 - 0.7 10e3/uL 05/31/2024 10:55 PM [facility] Absolute Basophils 0.1 0.0 - 0.2 10e3/uL 05/31/2024 10:55 PM [facility] Absolute Immature Granulocytes 0.1 <=0.4 10e3/uL 05/31/2024 10:55 PM [facility] Absolute NRBCs 0.3 10e3/uL 05/31/2024 10:55 PM [facility] Blood BLOOD SPECIMEN / Unknown Venipuncture / Unknown 05/31/2024 10:21 PM ASSOCIATE DIRECTOR CAREER SERVICES 05/31/2024 10:24 PM [facility] us Carley Riggins MD LAB - BLOOD ORDERABLES Liss plaza Result [facility] [address] [place] [address], [facility] * (ABNORMAL) Basic metabolic panel (05/31/2024 10:21 PM [facility]) Sodium 133(L) 135 - 145 mmol/L 05/31/2024 10:46 PM [facility] Potassium 4.1 3.4 - 5.3 mmol/L 05/31/2024 10:46 PM [facility] Chloride 102 98 - 107 mmol/L 05/31/2024 10:46 PM [facility] Carbon Dioxide (CO2) 20(L) 22 - 29 mmol/L 05/31/2024 10:46 PM [facility] Anion Gap 11 7 - 15 mmol/L 05/31/2024 10:46 PM [facility] Urea Nitrogen 9.9 6.0 - 20.0 mg/dL 05/31/2024 10:46 PM [facility] Creatinine 0.70 0.51 - 0.95 mg/dL 05/31/2024 10:46 PM [facility] GFR Estimate >90 >60 mL/min/1.7 3m2 05/31/2024 10:46 PM [facility] Comment:eGFR calculated usin g 2020 CKD-EPI equation. Calcium 9.0 8.8 - 10.4 mg/dL 05/31/2024 10:46 PM [facility] Glucose 97 70 - 99 mg/dL 05/31/2024 10:46 PM ASSOCIATE DIRECTOR CAREER SERVICES [facility] Blood BLOOD SPECIMEN / Unknown Venipuncture / Unknown 05/31/2024 10:21 PM ASSOCIATE DIRECTOR CAREER SERVICES 05/31/2024 10:24 PM ASSOCIATE DIRECTOR CAREER SERVICES Carley Riggins MD LAB - BLOOD ORDERABLES Liss l Result Performing Organization Address [facility]/ZIP Co de Phone Number [facility] [address] [place] [address] [place] Munoz [address], [facility] * (ABNORMAL) Reticulocyte count (05/31/2024 10:21 PM ASSOCIATE DIRECTOR CAREER SERVICES) [facility] % Reticulocyte 22.7(H) 0.5 - 2.0 % 05/31/2024 10:45 PM ASSOCIATE DIRECTOR CAREER SERVICES [facility] Absolute Reticulocyte 0.631(H) 0.025 - 0.095 10e6/uL 05/31/2024 10:45 PM ASSOCIATE DIRECTOR CAREER SERVICES [facility] Blood BLOOD SPECIMEN / Unknown Venipuncture / Unknown 05/31/2024 10:21 PM ASSOCIATE DIRECTOR CAREER SERVICES 05/31/2024 10:24 PM ASSOCIATE DIRECTOR CAREER SERVICES Carley Riggins MD LAB - BLOOD ORDERABLES Liss l Result Performing Organization Address [facility] de Phone Number [facility] [address] [place] [address] [place] [address], [facility] documented in this encounter Visit Diagnoses Diagnosis 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 documented in this encounter Administered Medications Inactive Administered Medications - up to 3 most recent administrations Medication Order MAR Action Action Date Dose Rate Site diphenhydrAMINE (BENADRYL) capsule 25 mg 25 mg, Oral, ONCE, On Wed05/31/24 at 2300, For 1 dose $Given 05/31/2024 10:50 PM ASSOCIATE DIRECTOR CAREER SERVICES 25 mg heparin lock flush 100 unit/mL injection 100 Units 100 Units, Intracatheter, ONCE, On Wed06/01/24 at 0030, For 1 dose $Given 06/01/2024 12:39 AM ASSOCIATE DIRECTOR CAREER SERVICES 100 Units HYDROmorphone (DILAUDID) injection 2 mg 2 mg, Intravenous, EVERY 1 HOUR PRN, severe pain, Starting on Wed05/31/24 at 2143, For 3 doses $Given 06/01/2024 12:36 AM ASSOCIATE DIRECTOR CAREER SERVICES 2 mg $Given 05/31/2024 11:42 PM ASSOCIATE DIRECTOR CAREER SERVICES 2 mg $Given 05/31/2024 10:28 PM ASSOCIATE DIRECTOR CAREER SERVICES 2 mg lactated ringers infusion at 500 mL/hr, Intravenous, CONTINUOUS, Starting on Wed05/31/24 at 2200, Until Wed05/31/24 at 2359 $New Bag 05/31/2024 10:22 PM ASSOCIATE DIRECTOR CAREER SERVICES 500 mL/hr ondansetron (ZOFRAN) injection 8 mg 8 mg, Intravenous, ONCE, Administer over 2-5 Minutes, On Wed05/31/24 at 2200, For 1 dose $Given 05/31/2024 10:27 PM ASSOCIATE DIRECTOR CAREER SERVICES 8 mg documented in this encounter Active and Recently Administered Medications Times are shown in ASSOCIATE DIRECTOR CAREER SERVICES. Scheduled Medication Order 05/30/2024 05/31/2024 06/01/2024 diphenhydrAMINE [...] SOFIA) documented in this encounter Care Teams Radio Electronics Officer Relationship Specialty Start Date End Date No Ref-Primary, Physician PCP - General 03/15/24 06/17/24 Roxy Mor Medical Student 04/03/24 Case Samuel MD [address] [place] [address] 484, [address] [place] [address] Assigned Pediatric Specialist Provider 05/18/24 Juhi Benson, SOFIA Specialty Personnel Adviser Hematology & Oncology 05/29/24 documented as of this encounter
--- OUTSIDE RECORDS SUMMARY | 2024-06-22 01:09 | XMS_ITS | Encounter Summary ---
Author Organization [facility] Address [address] [place] [address] Care Team Providers Care Home Theater Installer Name Role Phone No Ref-Primary, Physician Primary Care Provider Mor Ramsey Unavailable Unavailable Case Samuel MD Unavailable [phone] Reason for Referral * Diagnostic Imaging MRI (Routine) - Pending Review Specialty Diagnoses / Procedures Referred By Shahid pendleton Referred To Contact Radiology. 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 If you don't hear from a medical representative within 2 business days, please call . Additional Information: History of hemoglobin SS disease. History of retinopathy reported from care in [place] but not in a long time. Requesting eye exam for retinopathy Comments Please be aware that coverage of these services is subject to the terms and limitations of your health insurance plan. Call member services at your health plan with any benefit or coverage questions. [facility] will call you to coordinate your care as prescribed by your provider. If you don't hear from a medical representative within 2 business days, please call . 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 Requesting eval for further management per ortho's expertise. Scheduling Instructions: [facility] Orthopedic Slab Worker will call you to coordinate your care as prescribed by your provider. A medical representative will call you within 2 business days to help you schedule your appointment, or you may contact the Slab Worker Joy Loading Machine Operator at: . Comments Please be aware that coverage of these services is subject to the terms and limitations of your health insurance plan. Call member services at your health plan with any benefit or coverage questions. [facility] Orthopedic Slab Worker will call you to coordinate your care as prescribed by your provider. A medical representative will call you within 2 business days to help you schedule your appointment, or you may contact the Slab Worker Joy Loading Machine Operator at: . 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 If you don t hear from a medical representative within 2 business days, please call . Additional Information: History of symptomatic gallstones due to sickle cell disease. Previous workup in [place], [place] ([facility]) prior to moving here. Was moving towards cholecystectomy but ended up moving sooner. Requesting eval for gallstones. Comments Please be aware that coverage of these services is subject to the terms and limitations of your health insurance plan. Call member services at your health plan with any benefit or coverage questions. [facility] will call you to coordinate your care as prescribed by the provider. If you don t hear from a medical representative within 2 business days, please call . ING MACHINE OPERATOR Reason for Visit * Reason Comments Oncology Clinic Visit Sickle cell pain c risis * Consultation (Urgent: 3-5 Days) - Pending Review Specialty Diagnoses / Procedures Referred By Contac t Referred To Contact Medical Oncology Diagnoses 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 (H) Mor Ramsey Referral ID Status Reason Start Date Expiration Date V isits Requested Visits Authorized [id number] Pending Review 03/28/2024 03/28/2025 1 1 Encounter Details Date Type Department Care Team (Late st Contact Info) Description 05/01/2024 11:00 AM FELTING MACHINE OPERATOR Oncology Visit [facility] [address] [place] [address] Case Samuel MD [address] [facility] [address], [address] [place] [address] History of transfusion (Primary Dx); [...] on file Legal Sex Female 8:25 AM FELTING MACHINE OPERATOR Gender Identity Not on file Sexual Orientation Not on file documented as of this encounter Last Filed Vital Signs Vital Sign Reading Time Taken Comments Blood Pressure 93/62 05/01/2024 10:50 AM FELTING MACHINE OPERATOR Pulse 93 05/01/2024 10:50 AM FELTING MACHINE OPERATOR Temperature 36.8 C (98.2 F) 05/01/2024 10:50 AM FELTING MACHINE OPERATOR Respiratory Rate 16 05/01/2024 10:50 AM FELTING MACHINE OPERATOR Oxygen Saturation 98% 05/01/2024 10:50 AM FELTING MACHINE OPERATOR Inhaled Oxygen Concentration - - Weight 51 kg (112 lb 6.4 oz) 05/01/2024 10:50 AM FELTING MACHINE OPERATOR Height 159.9 cm (5' 2.95) 05/01/2024 10:[address] Body Mass Index 19.94 05/01/2024 10:50 AM FELTING MACHINE OPERATOR documented in this encounter Progress Notes * [...] She said that she was born in [place] but moved throughout her childhood because her dad was in the . She is the youngest of 9 children she said, though she is the only one with sickle cell disease. Among other places, she was living in [place] for a time and then moved to [place]. It was there that shemet her boyfriend. She ultimately moved back to [place] and he came with her. It was there that they had a daughter Chanda, now 2 years old. That was a difficult for her, and she feelslike she never wants to be again. She was living in [place], [place] and receiving care at [facility], though she did not get the sense that pit hoist operator there was super comfortable with sickle [...] about 3 weeks ago. She moved to [place] about 2 months ago. Her boyfriend is [...] worked up for symptomatic gallstones back in [place], but there were some delays in getting a cholecystectomy and by the time it was getting scheduled, they were moving to [place]. She reports that she has had a [...] them both so she can be a mjod-dl-bfyh mom. Sickle Cell Disease Comprehensive Checklist Stroke/silent [...] titrate as needed and notify the primary pit hoist operator via [employer] message if changes to the plan below are needed. 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 GENERAL APPEARANCE: healthy, alert [...] she knows. Even though she lives in [place], she is very willing to come to the [place] to get her care and use the [...] around the hip and femur strong. -Orthopedic booster pump oiler referral placed. Will defer to them for [...] per the note Case Samuel MD Classical Screen Printing Machine Operator Helper Division of Hematology, Oncology, and Transplantation [facility] ING MACHINE OPERATOR ING MACHINE OPERATOR documented in this encounter Nursing Notes * [...] Provider was notified. Pharmacy name entered into [employer]: [email or web address] [address] [facility], [place] - [facility] [facility] [place], [place] - [address] [facility] Frailty Screening: Is the patient here for a new oncology consult visit in cancer care? 2. No Clinical concerns: Patient states no new concerns to discuss with provider. 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) Gallstones Expected: 05/01/2024 (Approximate), Expires: 05/01/2025 Orthopedic Slab Worker Referral Referral Routine: Next available opening 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 Author Pain Management General On track( 025 12:40 PM FELTING MACHINE OPERATOR) Yes Juhi Benson, RN Note: Goal [...] Genotype Red Blood Cell (05/29/2024 11:23 AM FELTING MACHINE OPERATOR) See Scanned Result GENOTYPE RED BLOOD CELL-Scanned 05/31/2024 10:16 AM FELTING MACHINE OPERATOR [facility] Blood VENOUS LINE / Unknown IVAD (Port) / Unknown 05/29/2024 11:23 AM FELTING MACHINE OPERATOR 05/29/2024 11:29 AM FELTING MACHINE OPERATOR us Case Samuel MD LAB - BLOOD ORDERABLES Fi nal Result [facility] [address] [place] [address], [facility] [phone] * (ABNORMAL) HGB Eval Reflex to ELP or RBC Solubility (05/29/2024 11:23 AM FELTING MACHINE OPERATOR) Hemoglobin A 15.0(L) 95.0 - 97.9 % 05/31/2024 2:46 PM FELTING MACHINE OPERATOR [facility] Hemoglobin A2 3.0 2.0 - 3.5 % 05/31/2024 2:46 PM FELTING MACHINE OPERATOR [facility] Hemoglobin F 10.8(H) 0.0 - 2.1 % 05/31/2024 2:46 PM FELTING MACHINE OPERATOR [facility] Hemoglobin S 71.2(H) 0.0 - 0.0 % 05/31/2024 2:46 PM FELTING MACHINE OPERATOR [facility] Hemoglobin C 0.0 0.0 - 0.0 % 05/31/2024 2:46 PM FELTING MACHINE OPERATOR [facility] Hemoglobin E 0.0 0.0 - 0.0 % 05/31/2024 2:46 PM FELTING MACHINE OPERATOR [facility] Hemoglobin - Other 0.0 0.0 - 0.0 % 05/31/2024 2:46 PM FELTING MACHINE OPERATOR [facility] Hemoglobin Evaluation See Note 05/31/2024 2:46 PM FELTING MACHINE OPERATOR [facility] Comment: Impression: Hb S present [...] by Alpha Globin (HBA1 and HBA2) Deletion/Duplication ([facility] test #[id number]) should be considered. Hb S/beta-plus thalassemia is typically characterized by more Hb S than Hb A with the presence of microcytosis. If microcytosis is present and Hb S/beta-plus thalassemia is suspected, Beta Globin (HBB) Sequencing ([facility] test #[id number]) is suggested. Hemoglobin analysis should be offered [...] developed and its performance characteristics determined by [facility]. It has not been cleared or approved by the U.S. Food and Drug Administration. This test was performed in a CLIA-certified laboratory and is intended for clinical purposes. Sickle Cell Solubility Reflex Positive(A) 05/31/2024 2:46 PM FELTING MACHINE OPERATOR [facility] Comment: INTERPRETIVE INFORMATION: Sickle Cell Solubility Reflex Not Performed: Solubility testing for Hemoglobin S not indicated. 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 Additional charges apply. Conf Previous: Positive for Hemoglobin S by HPLC. Solubility testing performed previously and not repeated with this submission. Hgb Capillary Electrophoresis Reflex Performed 05/31/2024 2:46 PM FELTING MACHINE OPERATOR [facility] Comment: INTERPRETIVE INFORMATION: Hgb Capillary Electrophoresis Reflex Not Performed: Confirmation by Capillary Electrophoresis not indicated. Performed: Results confirmed by Capillary Electrophoresis. Additional charges apply. Conf Previous: Capillary Electrophoresis confirmation performed as part of a previous submission. Confirmation not repeated with this submission. Performed By: [facility] [address] [place] [id number] Career Agent: Devon Healy MD, PhD CLIA Number: [id number] Blood VENOUS LINE / Unknown IVAD (Port) / Unknown 05/29/2024 11:23 AM FELTING MACHINE OPERATOR 05/29/2024 11:30 AM FELTING MACHINE OPERATOR Case Samuel MD LAB - BLOOD ORDERABLES Fi nal Result [facility] [address] [place] [phone], [facility] [phone] * (ABNORMAL) Ferritin (05/29/2024 11:23 AM FELTING MACHINE OPERATOR) Ferritin 1,559(H) 6 - 175 ng/mL 05/29/2024 12:43 PM FELTING MACHINE OPERATOR [facility] Blood VENOUS LINE / Unknown IVAD (Port) / Unknown 05/29/2024 11:23 AM FELTING MACHINE OPERATOR 05/29/2024 11:29 AM FELTING MACHINE OPERATOR Case Samuel MD LAB - BLOOD ORDERABLES Fi nal Result [facility] [address] 1st Floor [place] [address] * (ABNORMAL) Routine UA with micro reflex to culture (05/29/2024 11:23 AM FELTING MACHINE OPERATOR) Color Urine Yellow Colorless, Straw, Light Yellow, Yellow 05/29/2024 11:41 AM FELTING MACHINE OPERATOR [facility] Appearance Urine Slightly Cloudy(A) Clear 05/29/2024 11:41 AM FELTING MACHINE OPERATOR [facility] Glucose Urine Negative Negative mg/dL 05/29/2024 11:41 AM [facility] Bilirubin Urine Negative Negative 11:41 AM [facility] Ketones Urine Negative Negative mg/dL 05/29/2024 11:41 AM [facility] Specific [place] Urine 1.013 1.003 - 1.035 05/29/2024 11:41 AM [facility] Blood Urine Negative Negative 05/29/2024 11:41 AM [facility] pH Urine 7.0 5.0 - 7.0 05/29/2024 11:41 AM FELTING MACHINE OPERATOR [facility] Protein Albumin Urine Negative Negative mg/dL 05/29/2024 11:41 AM [facility] Urobilinogen Urine Normal Normal, 2.0 mg/dL 05/29/2024 11:41 AM [facility] Nitrite Urine Negative Negative 05/29/2024 11:41 AM [facility] Leukocyte Esterase Urine Moderate(A) Negative 05/29/2024 11:41 AM FELTING MACHINE OPERATOR [facility] Mucus Urine Present(A) None Seen /LPF 05/29/2024 11:41 AM [facility] RBC Urine 6(H) <=2 /HPF 05/29/2024 11:41 AM [facility] WBC Urine 3 <=5 /HPF 05/29/2024 11:41 AM [facility] Squamous Epithelials Urine 18(H) <=1 /HPF 05/29/2024 11:41 AM [facility] Urine URINE SPECIMEN OBTAINED BY CLEAN CATCH PROCEDURE / Unknown Non-blood Collection / Unknown 05/29/2024 11:23 AM FELTING MACHINE OPERATOR 05/29/2024 11:29 AM FELTING MACHINE OPERATOR Narrative [facility] - 05/29/2024 11:41 AM FELTING MACHINE OPERATOR Urine Culture ordered based on laboratory criteria us Case Samuel MD LAB - URINE ORDERABLES Fi nal Result [facility] [address] [facility] 1st [place] [address] * (ABNORMAL) Comprehensive metabolic panel (05/29/2024 11:23 AM FELTING MACHINE OPERATOR) Sodium 139 135 - 145 mmol/L 05/29/2024 11:58 AM [facility] Potassium 4.2 3.4 - 5.3 mmol/L 05/29/2024 11:58 AM [facility] Carbon Dioxide (CO2) 24 22 - 29 mmol/L 05/29/2024 11:58 AM [facility] Anion Gap 10 7 - 15 mmol/L 05/29/2024 11:58 AM [facility] Urea Nitrogen 9.2 6.0 - 20.0 mg/dL 05/29/2024 11:58 AM [facility] Creatinine 0.75 0.51 - 0.95 mg/dL 05/29/2024 11:58 AM [facility] GFR Estimate >90 >60 mL/min/1.7 3m2 05/29/2024 11:58 AM [facility] Comment:eGFR calculated usin 2020 CKD-EPI equation. Calcium 8.9 8.8 - 10.4 mg/dL 05/29/2024 11:58 AM [facility] Chloride 105 98 - 107 mmol/L 05/29/2024 11:58 AM [facility] Glucose 109(H) 70 - 99 mg/dL 05/29/2024 11:58 AM [facility] Alkaline Phosphatase 83 40 - 150 U/L 05/29/2024 11:58 AM [facility] AST 49(H) 0 - 45 U/L 05/29/2024 11:58 AM [facility] ALT 21 0 - 50 U/L 05/29/2024 11:58 AM [facility] Protein Total 7.3 6.4 - 8.3 g/dL 05/29/2024 11:58 AM [facility] Albumin 4.1 3.5 - 5.2 g/dL 05/29/2024 11:58 AM [facility] Bilirubin Total 2.2(H) <=1.2 mg/dL 05/29/2024 11:58 AM [facility] Blood VENOUS LINE / Unknown IVAD (Port) / Unknown 05/29/2024 11:23 AM FELTING MACHINE OPERATOR 05/29/2024 11:29 AM FELTING MACHINE OPERATOR us Case Samuel MD LAB - BLOOD ORDERABLES Fi nal Result [facility] [address] [facility] 1st [place] [address] * (ABNORMAL) Reticulocyte count (05/29/2024 11:23 AM FELTING MACHINE OPERATOR) % Reticulocyte 29.8(H) 0.5 - 2.0 % 05/29/2024 12:00 PM FELTING MACHINE OPERATOR [facility] Absolute Reticulocyte 0.631(H) 0.025 - 0.095 10e6/uL 05/29/2024 12:00 PM FELTING MACHINE OPERATOR [facility] Blood VENOUS LINE / Unknown IVAD (Port) / Unknown 05/29/2024 11:23 AM FELTING MACHINE OPERATOR 05/29/2024 11:29 AM FELTING MACHINE OPERATOR Case Samuel MD LAB - BLOOD ORDERABLES Fi nal Result [facility] [address] 1st [place] [address] * (ABNORMAL) Vitamin D deficiency screening (04/28/2024 1:50 AM FELTING MACHINE OPERATOR) Vitamin D, Total (25-Hydroxy) 8(L) 20 - 50 ng/mL 05/01/2024 6:42 PM FELTING MACHINE OPERATOR [facility] Comment:severe deficiency Blood BLOOD SPECIMEN / Unknown Venipuncture / Unknown 04/28/2024 1:50 AM FELTING MACHINE OPERATOR 04/28/2024 1:53 AM FELTING MACHINE OPERATOR Narrative [facility] - 05/01/2024 6:42 PM FELTING MACHINE OPERATOR Season, race, dietary intake, and treatment affect the concentration of 75-rsucboo-Yeeiidl D. Values may decrease during winter months and increase during summer months. Vitamin D determination is routinely performed by an immunoassay specific for 25 hydroxyvitamin D3. If an individual is on vitamin D2(ergocalciferol) supplementation, please specify 25 OH vitamin D2 and D3 level determination by LCMSMS test VITD23. us Case Samuel MD LAB - BLOOD ORDERABLES Fi nal Result [facility] [place] [facility] [address] [facility], [address] [place] [phone] documented in this encounter Visit Diagnoses [...] Rule Out COVID-05/08/2024 05/08/2024 05/08/2024 8:18 PM FELTING MACHINE OPERATOR Rule Out COVID-05/16/2024 05/16/2024 05/16/2024 10:46 PM FELTING MACHINE OPERATOR documented as of this encounter Care Teams Home Theater Installer Relationship Specialty Start Date End Date No Ref-Primary, Physician PCP - General 03/15/24 06/17/24 Mor Ramsey Medical Student 04/03/24 Case Samuel MD [address] [place] [address] [address], [address] [place] [address] Assigned Pediatric Specialist Provider 05/18/24 documented as of this encounter
--- OUTSIDE RECORDS SUMMARY | 2024-06-22 01:09 | XMS_ITS | Encounter Summary ---
Author Organization Center Address [address] [place] [address]. [place] [address] Care Team Providers Care Pharmacy Benefits Coordinator Name Role Phone No Ref-Primary, Physician Primary Care Provider Mor Ramsey Unavailable Unavailable Case Samuel MD Unavailable [phone] Juhi Benson RN Unavailable Unavailable Encounter Details [...] file Legal Sex Female 8:25 AM MANAGER GARDEN Gender Identity Not on file Sexual Orientation Not on file documented as of this encounter Plan of Treatment Not on file documented as of this encounter Goals Goal Patient Goal Type Associated Problems Recent Progress Patient-Stated? Author Pain Management General On track( 025 12:40 PM MANAGER GARDEN) Yes Juhi Benson RN Note: Goal Statement: [...] on filedocumented in this encounter Care Teams Pharmacy Benefits Coordinator Relationship Specialty Start Date End Date No Ref-Primary, Physician PCP - General 03/15/24 06/17/24 Mor Ramsey Medical Student 04/03/24 Case Samuel MD [address] [place] [address] [address], [address] [place] [address] Assigned Pediatric Specialist Provider 05/18/24 Juhi Benson RN Specialty Brush Fabrication Supervisor Hematology & Oncology 05/29/24 documented as of this encounter
--- OUTSIDE RECORDS SUMMARY | 2024-06-22 01:09 | XMS_ITS | Encounter Summary ---
Author Organization [facility] Address [address] [place] [address]. [place] [address] Care Team Providers Care Retail Associate Manager Bilingual Name Role Phone No Ref-Primary, Physician Primary Care Provider Mor Ramsey Unavailable Unavailable Case Samuel MD Unavailable [phone] Juhi Benson RN Unavailable Unavailable Reason for Visit * Reason Comments Sickle Cell Pain Crisis Encounter Details Date Type Department Care Team (Late st Contact Info) Description 05/28/2024 11:56 PM SEXUAL ASSAULT RESPONSE COORDINATOR - 05/29/2024 3:54 AM SEXUAL ASSAULT RESPONSE COORDINATOR Emergency [facility] Emergency Room [facility] [place] [address] Lenin Smith MD [address] [place] [address] [phone] Sickle cell disease with crisis (H) Discharge [...] on file Legal Sex Female 8:25 AM SEXUAL ASSAULT RESPONSE COORDINATOR Gender Identity Not on file Sexual Orientation Not on file documented as of this encounter Last Filed Vital Signs Vital Sign Reading Time Taken Comments Blood Pressure 123/66 05/29/2024 3:15 AM SEXUAL ASSAULT RESPONSE COORDINATOR Pulse 87 05/29/2024 3:15 AM SEXUAL ASSAULT RESPONSE COORDINATOR Temperature 36.6 C (97.9 F) 05/29/2024 12:01 AM SEXUAL ASSAULT RESPONSE COORDINATOR Respiratory Rate 18 05/29/2024 12:01 AM SEXUAL ASSAULT RESPONSE COORDINATOR Oxygen Saturation 93% 05/29/2024 3:15 AM SEXUAL ASSAULT RESPONSE COORDINATOR Inhaled Oxygen Concentration - - Weight 51.7 kg (114 lb) 05/29/2024 12:01 AM SEXUAL ASSAULT RESPONSE COORDINATOR Height 154.9 cm (5' 1) 05/29/2024 12:01 AM SEXUAL ASSAULT RESPONSE COORDINATOR Body Mass Index 21.54 05/29/2024 12:01 AM SEXUAL ASSAULT RESPONSE COORDINATOR documented in this encounter Discharge Instructions * Attachments The following attachments cannot be sent through Care Everywhere. * Sickle Cell Crisis ([place]) documented in this encounter Medications at Time [...] time. Patient comfortable and agrees with plan. AL ASSAULT RESPONSE COORDINATOR * Lenin Smith MD - 05/29/2024 12:17 [...] go home. Has an appointment with her boiler/chiller operator today. Willfollow-up then. No indication for transfusion [...] with other provider:Did you involve another provider (design center consultant, , pharmacy, etc.)?: No Discharge. No [...] information was obtained from: Patient Use of Windows Migration Technician: N/A Gianna Hernández is a 29 [...] daughters second birthdayand they walked around the [facility], patient believes she might have over exerted [...] home in stable condition. 05/25 Admission to [facility] for bilateral port placements with apheresis port on right and smart port on left. 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 Recently moved to [place] from [place], [place]. She is 1 of 9 [...] Social Connections: Socially Integrated (03/28/2024) Received from [facility] Social Connections Do you often feel [...] my direction. Lenin Smith M.D. Emergency Medicine [facility] EMERGENCY ROOM [facility] [facility] [id number] Dept: [phone] Lenin Smith MD 05/29/24 0412 AL ASSAULT RESPONSE COORDINATOR * Moy Stewart RN - 05/29/2024 12:02 [...] WDL WDL Cognitive/Neuro/Behavioral WDL Cognitive/Neuro/Behavioral WDL WDL AL ASSAULT RESPONSE COORDINATOR documented in this encounter Plan of Treatment Not on file documented as of this encounter Goals Goal Patient Goal Type Associated Problems Recent Progress Patient-Stated? Author Pain Management General On track( 025 12:40 PM SEXUAL ASSAULT RESPONSE COORDINATOR) Yes Juhi Benson, SOFIA Note: Goal Statement: [...] MANUAL DIFFERENTIAL STAT 05/29/2024 1 2:53 AM SEXUAL ASSAULT RESPONSE COORDINATOR CBC WITH PLATELETS AND DIFFERENTIAL STAT 05/29/2024 12:53 AM SEXUAL ASSAULT RESPONSE COORDINATOR CBC WITH PLATELETS & DIFFERENTIAL STAT 05/29/2024 12:53 AM SEXUAL ASSAULT RESPONSE COORDINATOR RETICULOCYTE COUNT STAT 05/29/2024 12 :53 AM SEXUAL ASSAULT RESPONSE COORDINATOR documented in this encounter Results * (ABNORMAL) Manual Differential (05/29/2024 12:53 AM SEXUAL ASSAULT RESPONSE COORDINATOR) % Neutrophils 54 % JARET 05/29/2024 1:58 AM SEXUAL ASSAULT RESPONSE COORDINATOR [facility] % Lymphocytes 34 % JARET 05/29/2024 1:58 AM SEXUAL ASSAULT RESPONSE COORDINATOR [facility] % Monocytes 10 % JARET 05/29/2024 1:58 AM SEXUAL ASSAULT RESPONSE COORDINATOR [facility] % Eosinophils 1 % JARET 05/29/2024 1:58 AM [facility] % Basophils 1 % JARET 05/29/2024 1:58 AM [facility] Absolute Neutrophils 8.4(H) 1.6 - 8.3 10e3/uL JARET 05/29/2024 1:58 AM [facility] Absolute Lymphocytes 5.3 0.8 - 5.3 10e3/uL JARET 05/29/2024 1:58 AM [facility] Absolute Monocytes 1.6(H) 0.0 - 1.3 10e3/uL JARET 05/29/2024 1:58 AM [facility] Absolute Eosinophils 0.2 0.0 - 0.7 10e3/uL JARET 05/29/2024 1:58 AM [facility] Absolute Basophils 0.2 0.0 - 0.2 10e3/uL JARET 05/29/2024 1:58 AM [facility] NRBCs per 100 WBC 3 % JARET 05/29/2024 1:58 AM [facility] Absolute NRBCs 0.5 10e3/uL JARET 05/29/2024 1:58 AM [facility] RBC Morphology Confirmed RBC Indices JARET 05/29/2024 1:58 AM [facility] Platelet Assessment Automated Count Confirmed. Platelet morphology is normal. Automated Count Confirmed. Platelet morphology is normal. [facility] 05/29/2024 1:58 AM [facility] Polychromasia Moderate(A) None Seen JARET 05/29/2024 1:58 AM [facility] Sickle Cells Moderate(A) None Seen [facility] 05/29/2024 1:58 AM [facility] Blood VENOUS LINE / Unknown Venipuncture / Unknown 05/29/2024 12:53 AM [facility] 05/29/2024 12:58 AM [facility] us Lenin Smith MD LAB - BLOOD ORDERABLES Final Result [facility] [address] [place] [address], [facility] * (ABNORMAL) CBC with platelets and differential (05/29/2024 12:53 AM [facility]) [facility] WBC Count 15.6(H) 4.0 - 11.0 10e3/uL 05/29/2024 1:58 AM [facility] RBC Count 2.09(L) 3.80 - 5.20 10e6/uL 05/29/2024 1:58 AM [facility] Hemoglobin 6.7(LL) 11.7 - 15.7 g/dL 05/29/2024 1:58 AM [facility] Hematocrit 19.2(L) 35.0 - 47.0 % 05/29/2024 1:58 AM [facility] MCV 92 78 - 100 fL 05/29/2024 1:58 AM [facility] MCH 32.1 26.5 - 33.0 pg 05/29/2024 1:58 AM [facility] MCHC 34.9 31.5 - 36.5 g/dL 05/29/2024 1:58 AM [facility] RDW 23.0(H) 10.0 - 15.0 % 05/29/2024 1:58 AM [facility] Platelet Count 405 150 - 450 10e3/uL 05/29/2024 1:58 AM [facility] Blood VENOUS LINE / Unknown Venipuncture / Unknown 05/29/2024 12:53 AM SEXUAL ASSAULT RESPONSE COORDINATOR 05/29/2024 12:58 AM [facility] Lenin Smith MD LAB - BLOOD ORDERABLES Final Result [facility] [address] [place] [address], [facility] * (ABNORMAL) Reticulocyte count (05/29/2024 12:53 AM SEXUAL ASSAULT RESPONSE COORDINATOR) [facility] % Reticulocyte 28.6(H) 0.5 - 2.0 % 05/29/2024 1:27 AM [facility] Absolute Reticulocyte 0.616(H) 0.025 - 0.095 10e6/uL 05/29/2024 1:27 AM [facility] Blood VENOUS LINE / Unknown Venipuncture / Unknown 05/29/2024 12:53 AM SEXUAL ASSAULT RESPONSE COORDINATOR 05/29/2024 12:58 AM SEXUAL ASSAULT RESPONSE COORDINATOR us Lenin Smith MD LAB - BLOOD ORDERABLES Final Result [facility] [address] [place] [address], [facility] documented in this encounter Visit Diagnoses Diagnosis Sickle cell disease with crisis (H) Hb-SS disease with crisis documented in this encounter Administered Medications Inactive Administered Medications - up to 3 most recent administrations Medication Order MAR Action Action Date Dose Rate Site diphenhydrAMINE (BENADRYL) injection 25 mg 25 mg, Intravenous, ONCE, On Wed05/29/24 at 0130, For 1 dose $Given 05/29/2024 1:26 AM SEXUAL ASSAULT RESPONSE COORDINATOR 25 mg heparin lock flush 10 unit/mL [...] each port lumen $Given 05/29/2024 3:38 AM SEXUAL ASSAULT RESPONSE COORDINATOR 5 mLs HYDROmorphone (DILAUDID) injection 2 mg 2 mg, Intravenous, EVERY 1 HOUR PRN, severe pain, moderate pain, Starting on Wed05/29/24 at 0010, For 3 doses $Given 05/29/2024 3:37 AM SEXUAL ASSAULT RESPONSE COORDINATOR 2 mg $Given 05/29/2024 2:37 AM SEXUAL ASSAULT RESPONSE COORDINATOR 2 mg $Given 05/29/2024 1:19 AM SEXUAL ASSAULT RESPONSE COORDINATOR 2 mg lactated ringers BOLUS 1,000 mL Intravenous, 1,000 mL, ONCE, at 1,000 mL/hr, Administer over 1 Hours, On Wed05/29/24 at 0030, For 1 dose $New Bag 05/29/2024 1:01 AM SEXUAL ASSAULT RESPONSE COORDINATOR 1,000 mLs 1000 mL/hr sodium chloride (PF) 0.9% PF flush 10-20 mL 10-20 mL, Intracatheter, EVERY 1 MIN PRN, line flush, post meds or blood draw, to flush each lumen of the CVC Implanted port, Starting on Wed05/29/24 at 0008, 10 mL per port lumen post IV meds; 20 mL per port lumen post post blood draw. $Given 05/29/2024 3:37 AM SEXUAL ASSAULT RESPONSE COORDINATOR 10 mLs sodium chloride (PF) 0.9% PF [...] Recently Administered Medications Times are shown in SEXUAL ASSAULT RESPONSE COORDINATOR. Scheduled Medication Order 05/27/2024 05/28/2024 05/29/2024 diphenhydrAMINE [...] lumen documented in this encounter Care Teams Retail Associate Manager Bilingual Relationship Specialty Start Date End Date No Ref-Primary, Physician PCP - General 03/15/24 06/17/24 Mor Ramsey Medical Student 04/03/24 Case Samuel MD [address] [place] [address] [address] [place] [address] Assigned Pediatric Specialist Provider 05/18/24 Juhi Benson, RN Specialty Range Feeder Hematology & Oncology 05/29/24 documented as of this encounter
--- OUTSIDE RECORDS SUMMARY | 2024-06-22 01:09 | XMS_ITS | Encounter Summary ---
Author Organization [facility] Address [address] [place] [address]. [place] [address] Care Team Providers Care Sportspersons Name Role Phone No Ref-Primary, Physician Primary Care Provider Mor Ramsey Unavailable Unavailable Case Samuel MD Unavailable [phone] Juhi Benson RN Unavailable Unavailable Encounter Details [...] on file Legal Sex Female 8:25 AM REGISTERED MEDICAL ASSISTANT Gender Identity Not on file Sexual Orientation Not on file documented as of this encounter Plan of Treatment Not on file documented as of this encounter Goals Goal Patient Goal Type Associated Problems Recent Progress Patient-Stated? Author Pain Management General On track( 025 12:40 PM REGISTERED MEDICAL ASSISTANT) Yes Juhi Benson RN Note: Goal [...] on filedocumented in this encounter Care Teams Sportspersons Relationship Specialty Start Date End Date No Ref-Primary, Physician PCP - General 03/15/24 06/17/24 Mor Ramsey Medical Student 04/03/24 Case Samuel MD [address] [place] [address] [address] [place] [address] Assigned Pediatric Specialist Provider 05/18/24 Juhi Benson RN Specialty Animal Care Assistant Hematology & Oncology 05/29/24 documented as of this encounter
--- OUTSIDE RECORDS SUMMARY | 2024-06-22 01:10 | XMS_ITS | Encounter Summary ---
Author Organization [facility] Address [address] [place] [id number] Care Team Providers Care Skilled Laborer Name Role Phone No Ref-Primary, Physician Primary Care Provider Mor Ramsey Unavailable Unavailable Case Samuel MD Unavailable [phone] Reason for Referral * Therapeutic Imaging/IR (Routine: Next available opening) - Closed Specialty Diagnoses / Procedures Referred By Contac t Referred To Contact Radiology. 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) [...] in an abandoned building, in an overnight alf, or couch-surfing.) Yes 04/09/2024 Are you worried [...] on file Legal Sex Female 8:25 AM BOARD MIXER TENDER Gender Identity Not on file Sexual Orientation Not on file documented as of this encounter Last Filed Vital Signs Vital Sign Reading Time Taken Comments Blood Pressure 100/60 05/25/2024 4:00 PM BOARD MIXER TENDER Pulse 92 05/25/2024 3:00 PM BOARD MIXER TENDER Temperature 36.9 C (98.5 F) 05/25/2024 11:09 AM BOARD MIXER TENDER Respiratory Rate 16 05/25/2024 4:00 PM BOARD MIXER TENDER Oxygen Saturation 98% 05/25/2024 4:00 PM BOARD MIXER TENDER Inhaled Oxygen Concentration - - Weight 51.1 kg (112 lb 9.6 oz) 05/25/2024 11:09 AM BOARD MIXER TENDER Height - - Body Mass Index 21.28 05/23/2024 4:48 PM BOARD MIXER TENDER documented in this encounter Discharge Instructions * Discharge Instructions* Hattie Ballesteros RN - 05/25/2024 3:24 PM BOARD MIXER TENDER Images from the original note were not included. [facility] Interventional Radiology Discharge Instructions Following Port Placement You had a 2 ports placed. On the right side of your chest is a apheresis port and on the left side of your chest in a smart port. A port is a small health care / medical job titles that is placed under the skin and isconnected to a vein with a catheter (thin, flexible tube). Ports can be used to administer IV medications (including chemotherapy), fluids or blood products or for blood lab draws. Please follow the below instructions after your procedure: Your Ports has been closed with [place] (Skin Glue) If there is any [...] port placement for further instructions for this. [facility] INTERVENTIONAL RADIOLOGY DEPARTMENT Procedure Physician: Myron Michel MD Date of procedure: May 25, 2024 Telephone Numbers: [phone] Wednesday-Wednesday 7:30 am to 4:00 pm [phone] After 4:00 pm Wednesday-Wednesday, Weekends & Holidays. Ask for the Interventional Radiologist stitch bonding machine tender helper. Someone is stitch bonding machine tender helper 24 hrs/day [facility] toll free number: Wednesday-Wednesday 8:00 am to 4:30 pm [facility] Emergency Dept: [phone] IF YOU ARE EXPERIENCING A MEDICAL EMERGENCY PLEASE CALL 911 D MIXER TENDER D MIXER TENDER documented in this encounter Medications at Time [...] to s/o who is driving patient home. D MIXER TENDER * Hattie Ballesteros RN - 05/25/2024 3:07 PM CST Patient returned s/p bilateral port placement with apheresis port on the right and smart port on the left, both with dermabond, intact no bleeding or swelling. Patient c/o 7/10 pain, RN called Dr. Anglin and got home dose of dilaudid ordered. Patient alert and oriented, RASS of 0. Will discharge once meeting criteria. D MIXER TENDER * Hattie Ballesteros RN - 05/25/2024 12:32 PM CST Patient prepped for port placement x 2. Patient will have a power port and a apharesis IV port. Consent signed. PIV placed in left AC by vascular, IV antibiotic running. Appropriately NPO. Patient has sickle cell disease, reports pain okay today. S/o Vineet will be picking patient up. D MIXER TENDER documented in this encounter Procedure Notes * Myron Michel MD - 05/25/2024 2:55 PM CSTAssociated Order(s): IR Procedure Note [facility] Procedure: IR Procedure Note Date/Time: 05/25/2024 2:54 [...] the procedure a time out was called [place] Protocol: the Joint Commission [place] Protocol was followed Preparation: Patient was prepped and draped in usual sterile fashion ANESTHESIA Anesthesia: Local infiltration Local Anesthetic: Lidocaine 1% without epinephrine SEDATION Patient Sedated: Yes Sedation Type: Moderate (conscious) sedation Sedation: Fentanyl and midazolam Vital signs: Vital signs monitored during sedation See dictated procedure note for full details. Findings: Successful bilateral port placement apheresis on the right, 6 paraguayan smart port on the left Specimens: none Procedural Complications: None Condition: Stable Plan: 1 hour bedrest then okay to discharge PROCEDURE Describe Procedure: Successful bilateral port placement apheresis on the right, 6 paraguayan smart porton the left Patient Tolerance: Patient tolerated the procedure well with no immediate complications Length of time physician/provider present for 1:1 monitoring during sedation: 83-97 min D MIXER TENDER documented in this encounter Miscellaneous Notes * [...] mcg of fentanyl Sedation time: 97 minutes ([id number]) Report given to: Juhi Aviles RN Health Care Legal Assistant: n/a Other Notes: Pt arrived to IR [...] (5 mL). Pt transferred back to . D MIXER TENDER * Pre-Procedure - Juan Story PA-Jefferson - 05/25/2024 11:37 AM BOARD MIXER TENDER GENERAL PRE-PROCEDURE: Procedure: Port placement x2 Date/Time: [...] data, medications, and the plan for sedation D MIXER TENDER documented in this encounter Plan of Treatment Not on file documented as of this encounter Goals Goal Patient Goal Type Associated Problems Recent Progress Patient-Stated? 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) HCG QUALITATIVE URINE Routine 05/25/2024 12:03 PM BOARD MIXER TENDER documented in this encounter Results * IR Procedure Note (05/25/2024 2:54 PM BOARD MIXER TENDER) Narrative Myron Michel MD - 05/25/2024 2:54 PM BOARD MIXER TENDER Myron Michel MD 05/25/2024 2:55 PM [facility] Procedure: IR Procedure Note Date/Time: 05/25/2024 2:54 PM Performed by: Myron Michel MD Authorized by: Myron Michel MD IR Fellow Physician: Myron Michel Other(s) attending procedure: Jaswindre Cooper Pre Procedure Diagnosis: sickle cell Post [...] the procedure a time out was called [place] Protocol: the Joint Commission [place] Protocol was followed Preparation: Patient was prepped and draped in usual sterile fashion ANESTHESIA Anesthesia: Local infiltration Local Anesthetic: Lidocaine 1% without epinephrine SEDATION Patient Sedated: Yes Sedation Type: Moderate (conscious) sedation Sedation: Fentanyl and midazolam Vital signs: Vital signs monitored during sedation See dictated procedure note for full details. Findings: Successful bilateral port placement apheresis on the right, 6 paraguayan smart port on the left Specimens: none Procedural Complications: None Condition: Stable Plan: 1 hour bedrest then okay to discharge PROCEDURE Describe Procedure: Successful bilateral port placement apheresis on the right, 6 paraguayan smart port on the left Patient Tolerance: Patient tolerated the procedure well with no immediate complications Length of time physician/provider present for 1:1 monitoring during sedation: 83-97 min us Myron Michel MD PROCEDURE/MINOR SURGICAL ORDERA BLES Final Result * IR Chest Port Placement > 5 Yrs of Age (05/25/2024 2:47 PM BOARD MIXER TENDER) Anatomical Region Laterality Modality Chest Radio Fluoroscop y Impressions 05/25/2024 5:26 PM BOARD MIXER TENDER IMPRESSION: Insertion of right-sided apheresis chest port, [...] mg Versed Sedation time: 97 minutes ATTENDING [id number] SEDATION TIME: less than 5 minutes. Access [...] placed: BD PowerFlow apheresis port Catheter size (Dutch): 9.6 Lumens: Single-lumen Power injectable: Yes Catheter [...] JASWINDER COOPER MD Narrative 05/25/2024 5:26 PM BOARD MIXER TENDER PROCEDURE: Venous port placement Procedural Personnel Attending [...] mg Versed Sedation time: 97 minutes ATTENDING [id number] SEDATION TIME: less than 5 minutes. Access [...] placed: BD PowerFlow apheresis port Catheter size (Dutch): 9.6 Lumens: Single-lumen Power injectable: Yes Catheter [...] 4 Yrs of Age (05/25/2024 2:47 PM BOARD MIXER TENDER) Anatomical Region Laterality Modality Chest Radio Fluoroscop y Impressions 05/25/2024 5:23 PM BOARD MIXER TENDER IMPRESSION: Insertion of left-sided 6 Dutch chest port, with catheter tip in the [...] mg Versed Sedation time: 97 minutes ATTENDING [id number] SEDATION TIME: 5 minutes. Access Local anesthesia [...] AngioDynamics Plastic CT Smart Port Catheter size (Dutch): 6 Lumens: Single-lumen Power injectable: Yes Catheter [...] JASWINDER COOPER MD Narrative 05/25/2024 5:23 PM BOARD MIXER TENDER PROCEDURE: Venous port placement Procedural Personnel Attending physician(s): Jaswinder oCoper Fellow physician(s): Myron Michel Resident physician(s): None [...] immediate complications. IMPRESSION: Insertion of left-sided 6 Dutch chest port, with catheter tip in the [...] mg Versed Sedation time: 97 minutes ATTENDING [id number] SEDATION TIME: 5 minutes. Access Local anesthesia [...] AngioDynamics Plastic CT Smart Port Catheter size (Dutch): 6 Lumens: Single-lumen Power injectable: Yes Catheter [...] * HCG qualitative urine (05/25/2024 12:03 PM BOARD MIXER TENDER) hCG Urine Qualitative Negative Negative JARET 05/25/2024 12:34 PM BOARD MIXER TENDER [facility] Comment:This test is for scr eening purposes. Results should be interpreted along with the clinical picture. Confirmation testing is available if warranted by ordering [id number], HCG Quantitative . Urine MID-STREAM URINE SPECIMEN / Unknown Non-blood Collection / Unknown 05/25/2024 12:03 PM BOARD MIXER TENDER 05/25/2024 12:19 PM BOARD MIXER TENDER us Jaswinder Cooper MD LAB - URINE ORDERABLES [facility] Result [facility] Core Lab [address] [facility], [address] [phone] documented in this encounter Visit [...] ative Pharmacoprophylaxis $New Bag 05/25/2024 12:17 PM BOARD MIXER TENDER 2 g 200 mL/hr fentaNYL (PF) (SUBLIMAZE) [...] physician., IR Intra-procedure $Given 05/25/2024 2:38 PM BOARD MIXER TENDER 25 mcg $Given 05/25/2024 2:25 PM BOARD MIXER TENDER 50 mcg $Given 05/25/2024 2:16 PM BOARD MIXER TENDER 25 mcg flumazenil (ROMAZICON) injection 0.2 mg [...] $Given by Other Clinician 05/25/2024 1:40 PM BOARD MIXER TENDER 5,000 Units heparin lock flush 100 unit/mL injection 5 mL 5 mL, Intracatheter, ONCE, On Citlali 05/25/24 at 1330, For 1 dose, Left chest port $Given by Other Clinician 05/25/2024 2:30 PM BOARD MIXER TENDER 5 mLs HYDROmorphone (DILAUDID) tablet 2 mg 2 mg, Oral, ONCE PRN, severe pain, Starting on Citlali 05/25/24 at 1507, For 1 dose $Given 05/25/2024 3:16 PM BOARD MIXER TENDER 2 mg lidocaine (LMX4) cream Topical, EVERY [...] $Given by Other Clinician 05/25/2024 1:58 PM BOARD MIXER TENDER 40 mLs midazolam (VERSED) injection 0.5-2 mg [...] dose., IR Intra-procedure $Given 05/25/2024 2:38 PM BOARD MIXER TENDER 0.5 mg $Given 05/25/2024 2:25 PM BOARD MIXER TENDER 1 mg $Given 05/25/2024 2:16 PM BOARD MIXER TENDER 0.5 mg naloxone (NARCAN) injection 0.2 mg [...] Recently Administered Medications Times are shown in BOARD MIXER TENDER. Scheduled Medication Order 05/23/2024 05/24/2024 05/25/2024 ceFAZolin [...] procedure documented in this encounter Care Teams Skilled Laborer Relationship Specialty Start Date End Date No Ref-Primary, Physician PCP - General 03/15/24 06/17/24 Mor Ramsey Medical Student 04/03/24 Case Samuel MD [address] [place] [address] [address], [address] [place] [address] Assigned Pediatric Specialist Provider 05/18/24 documented as of this encounter
--- OUTSIDE RECORDS SUMMARY | 2024-06-22 01:10 | XMS_ITS | Encounter Summary ---
Author Organization [facility] Address [address] [place] [address] Care Team Providers Care Fern Picker Name Role Phone No Ref-Primary, Physician Primary Care Provider Mor Ramsey Unavailable Unavailable Case Samuel MD Unavailable [phone] Reason for Visit * Reason Comments Abdominal Pain ULQ Encounter Details Date Type Department Care Team (Late st Contact Info) Description 05/23/2024 9:03 PM SEMIAUTOMATIC TAPER OPERATOR - 05/23/2024 11:37 PM [facility] Emergency [facility] Emergency Room [facility] [place] [address] Marilia Summers MD [address] [place] [address] [id number] Sickle cell pain crisis (H); Leukocytosis, unspecified [...] on file Legal Sex Female 8:25 AM SEMIAUTOMATIC TAPER OPERATOR Gender Identity Not on file Sexual Orientation Not on file documented as of this encounter Last Filed Vital Signs Vital Sign Reading Time Taken Comments Blood Pressure 123/71 05/23/2024 9:53 PM SEMIAUTOMATIC TAPER OPERATOR Pulse 95 05/23/2024 9:53 PM SEMIAUTOMATIC TAPER OPERATOR Temperature 37.7 C (99.9 F) 05/23/2024 4:48 PM SEMIAUTOMATIC TAPER OPERATOR Respiratory Rate 18 05/23/2024 4:48 PM SEMIAUTOMATIC TAPER OPERATOR Oxygen Saturation 98% 05/23/2024 9:53 PM SEMIAUTOMATIC TAPER OPERATOR Inhaled Oxygen Concentration - - Weight 51.7 kg (114 lb) 05/23/2024 4:48 PM SEMIAUTOMATIC TAPER OPERATOR Height 154.9 cm (5' 1) 05/23/2024 4:48 PM SEMIAUTOMATIC TAPER OPERATOR Body Mass Index 21.54 05/23/2024 4:48 PM SEMIAUTOMATIC TAPER OPERATOR documented in this encounter Discharge Instructions * Discharge Instructions* Marilia Summers MD - 05/23/2024 10:34 PM SEMIAUTOMATIC TAPER OPERATOR Keep your appointment for your port in 2 days. Continue to work with oncology/hematology on pain control. The Lidoderm patch helps with the area of pain underneath your left breast on the chest wall, you can get [id number] muscle pain patches that have the same numbing medicine in them and put it on for 12 hours at a time to help with your discomfort. Obviously return to the emergency department as needed if you are having difficulty with breathing. AUTOMATIC TAPER OPERATOR * Attachments The following attachments cannot be sent through Care Everywhere. * Sickle Cell Crisis (Belarusian) documented in this encounter Medications at Time [...] /chest pain. Seen for similar last night AUTOMATIC TAPER OPERATOR * Marilia Summers MD - 05/23/2024 6:24 [...] she notes the plan discussed with the oncologist/engineer internship is to do 3 times a week [...] of chest pain. Misti moved here [facility] a fewmonths ago and since that time has been seen in the emergency department greater than 40 times. Shewas seen here yesterday, May 21, 2019, , , , , 18, 13th, 12th, 11th, 10th, eighth, seventh twice, on the sixth she was seen by oncology at the [facility] for the first time, also in [...] CT CHEST PULMONARY EMBOLISM W CONTRAST LOCATION: [facility] DATE: 05/23/2024 INDICATION: patient with sickle cell. acute chest pain similar to pe in the past. COMPARISON: Chest x-ray 05/22/2024, CTA chest 05/04/2024 and 03/15/2024. Report of CT chest from [facility] from 03/13/2023 is also available. TECHNIQUE: [...] Rate 77 BPM Atrial Rate 77 BPM NC Interval 160 ms QRS Duration 82 ms QT 362 ms QTc 409 ms P Baker 61 degrees R AXIS 92 degrees T Baker 49 degrees Interpretation ECG Sinus rhythm Rightward axis Borderline ECG When compared with ECG of 22-May-2024 15:14, Nonspecific T wave abnormality no longer evident in Inferior leads Confirmed by SEE ED PROVIDER NOTE FOR, ECG INTERPRETATION (4000), content editor SELMA GARRISON ([id number]) on 05/23/2024 7:30:33 PM ECG: Performed at: 1854 Impression: nsr rate of 77, wandering baseline somewhat limits exam. R axis. Pr 160ms, qrs 82ms, qtc 409ms, prt axes 61 92 49. Compared to 05/22/[address] segments in inferior limb leads no longer present. I have independently reviewed and interpreted the EKS(s) documented above PROCEDURES: Procedures: [facility] Documentation Medical Decision Making Obtained [...] with other provider:Did you involve another provider (human resources consultant, , pharmacy, etc.)?: No Discharge. I prescribed additional prescription strength medication(s) as charted. See documentation for any additional details. MIPS: Not Applicable Marilia Summers MD Emergency Medicine [facility] EMERGENCY ROOM Marilia Summers MD 05/23/24 2353 AUTOMATIC TAPER OPERATOR * Carmen Elkins RN - 05/23/2024 4:51 PM CST Pt arrives with c/o abdominal pain (ULQ). Pt seen here yesterday for the same pain and sickle cell pain. Reports feeling better when she left yesterday but now pain is back. Temp: 99.9 AUTOMATIC TAPER OPERATOR documented in this encounter Plan of Treatment Not on file documented as of this encounter Goals Goal Patient Goal Type Associated Problems Recent Progress Patient-Stated? Author Pain Management General On track( 025 12:40 PM SEMIAUTOMATIC TAPER OPERATOR) Yes Juhi Benson, SOFIA Note: Goal [...] EMBOLISM W CONTRAST STAT 05/23/2024 9:33 PM SEMIAUTOMATIC TAPER OPERATOR TROPONIN T, HIGH SENSITIVITY STAT 05/23/2024 9:02 PM SEMIAUTOMATIC TAPER OPERATOR RETICULOCYTE COUNT STAT 05/23/2024 9 :02 PM SEMIAUTOMATIC TAPER OPERATOR N TERMINAL PRO BNP OUTPATIENT STAT 05/23/2024 9:02 PM SEMIAUTOMATIC TAPER OPERATOR CBC WITH PLATELETS STAT 05/23/2024 9: 02 PM SEMIAUTOMATIC TAPER OPERATOR ECG 12-LEAD WITH MUSE SJN,SJO,WWH STAT 05/23/2024 6:54 PM SEMIAUTOMATIC TAPER OPERATOR documented in this encounter Results * CT Chest Pulmonary Embolism w Contrast (05/23/2024 9:33 PM SEMIAUTOMATIC TAPER OPERATOR) Anatomical Region Laterality Modality Chest, SUBRAD CT BODY, UMP CT CHEST Computed Tomography 05/23/2024 9:33 PM SEMIAUTOMATIC TAPER OPERATOR Impressions 05/23/2024 10:12 PM SEMIAUTOMATIC TAPER OPERATOR IMPRESSION: 1. Bilateral pulmonary nodules stable since [...] as noted above. Narrative 05/23/2024 10:12 PM SEMIAUTOMATIC TAPER OPERATOR EXAM: CT CHEST PULMONARY EMBOLISM W CONTRAST LOCATION: [facility] DATE: 05/23/2024 INDICATION: patient with sickle cell. acute chest pain similar to pe in the past. COMPARISON: Chest x-ray 05/22/2024, CTA chest 05/04/2024 and 03/15/2024. Report of CT chest from [facility] from 03/13/2023 is also available. [...] CT CHEST PULMONARY EMBOLISM W CONTRAST LOCATION: [facility] DATE: 05/23/2024 INDICATION: patient with sickle cell. acute chest pain similar to pe inthe past. COMPARISON: Chest x-ray 05/22/2024, CTA chest 05/04/2024 and 03/15/2024.Report of CT chest from [facility] from 03/13/2023 is alsoavailable. TECHNIQUE: [...] terminal pro BNP outpatient (05/23/2024 9:02 PM SEMIAUTOMATIC TAPER OPERATOR) [facility] N Terminal Pro BNP Outpatient 74 [id number] - 450 pg/mL 05/23/2024 9:39 PM SEMIAUTOMATIC TAPER OPERATOR [facility] Comment: Reference range shown and [...] Unknown Venipuncture / Unknown 05/23/2024 9:02 PM SEMIAUTOMATIC TAPER OPERATOR 05/23/2024 9:10 PM SEMIAUTOMATIC TAPER OPERATOR Marilia Summers MD LAB - BLOOD ORDERABLES Final Result Performing Organization Address [facility]/ZIP Co de Phone Number [facility] [address] [place] [address], [facility] * Troponin T, High Sensitivity (05/23/2024 9:02 PM SEMIAUTOMATIC TAPER OPERATOR) Troponin T, High Sensitivity <6 <=14 ng/L 05/23/2024 9:39 PM SEMIAUTOMATIC TAPER OPERATOR [facility] Comment: Either a High [...] Unknown Venipuncture / Unknown 05/23/2024 9:02 PM SEMIAUTOMATIC TAPER OPERATOR 05/23/2024 9:10 PM SEMIAUTOMATIC TAPER OPERATOR Marilia Summers MD LAB - BLOOD ORDERABLES Final Result Performing Organization Address [facility] Co de Phone Number [facility] [address] [place] [address], [facility] * (ABNORMAL) Reticulocyte count (05/23/2024 9:02 PM SEMIAUTOMATIC TAPER OPERATOR) % Reticulocyte 28.1(H) 0.5 - 2.0 % 05/23/2024 9:35 PM SEMIAUTOMATIC TAPER OPERATOR [facility] Absolute Reticulocyte 0.698(H) 0.025 - 0.095 10e6/uL 05/23/2024 9:35 PM SEMIAUTOMATIC TAPER OPERATOR [facility] Blood BLOOD SPECIMEN / Unknown Venipuncture / Unknown 05/23/2024 9:02 PM SEMIAUTOMATIC TAPER OPERATOR 05/23/2024 9:10 PM SEMIAUTOMATIC TAPER OPERATOR us Marilia Smumers MD LAB - BLOOD ORDERABLES Final Result [facility] [address] [place] [address], [facility] * (ABNORMAL) CBC (+ platelets, no diff) (05/23/2024 9:02 PM SEMIAUTOMATIC TAPER OPERATOR) WBC Count 17.2(H) 4.0 - 11.0 10e3/uL 05/23/2024 9:18 PM [facility] RBC Count 2.45(L) 3.80 - 5.20 10e6/uL 05/23/2024 9:18 PM [facility] Hemoglobin 7.9(L) 11.7 - 15.7 g/dL 05/23/2024 9:18 PM [facility] Hematocrit 22.4(L) 35.0 - 47.0 % 05/23/2024 9:18 PM [facility] MCV 91 78 - 100 fL 05/23/2024 9:18 PM [facility] MCH 32.2 26.5 - 33.0 pg 05/23/2024 9:18 PM [facility] MCHC 35.3 31.5 - 36.5 g/dL 05/23/2024 9:18 PM [facility] RDW 24.4(H) 10.0 - 15.0 % 05/23/2024 9:18 PM [facility] Platelet Count 519(H) 150 - 450 10e3/uL 05/23/2024 9:18 PM [facility] Blood BLOOD SPECIMEN / Unknown Venipuncture / Unknown 05/23/2024 9:02 PM SEMIAUTOMATIC TAPER OPERATOR 05/23/2024 9:10 PM SEMIAUTOMATIC TAPER OPERATOR us Marilia Summers MD LAB - BLOOD ORDERABLES Final Result [facility] [address] [place], [place] [address], [facility] * ECG 12-LEAD WITH MUSE (LHE) (05/23/2024 6:54 PM SEMIAUTOMATIC TAPER OPERATOR) Systolic Blood Pressure mmHg RADIOLOGY RESULTS Diastolic Blood Pressure mmHg RADIOLOGY RESULTS Ventricular Rate 77 BPM RAD IOLOGY RESULTS Atrial Rate 77 BPM RADIOLOG Y RESULTS NC Interval 160 ms RADIOLOG Y RESULTS QRS Duration 82 ms RADIOLO GY RESULTS QT 362 ms RADIOLOGY RESULTS QTc 409 ms RADIOLOGY RESULTS P Baker 61 degrees RADIOLOGY RESULTS R AXIS 92 degrees RADIOLOGY RESULTS T Baker 49 degrees RADIOLOGY RESULTS Interpretation ECG Sinus rhythm Rightward axis Borderline ECG When compared with ECG of 22-May-2024 15:14, Nonspecific T wave abnormality no longer evident in Inferior leads Confirmed by SEE ED PROVIDER NOTE FOR, ECG INTERPRETATION (4000), content editor SELMA GARRISON ([id number]) on 05/23/2024 7:30:33 PM RADIOLOGY RESULTS 05/23/2024 6:54 PM SEMIAUTOMATIC TAPER OPERATOR 05/23/2024 7:30 PM SEMIAUTOMATIC TAPER OPERATOR us Marilia Summers MD ECG ORDERABLES Edited [...] For 1 dose $Given 05/23/2024 10:03 PM SEMIAUTOMATIC TAPER OPERATOR 50 mg HYDROmorphone (DILAUDID) injection 2 mg 2 mg, Intravenous, EVERY 1 HOUR PRN, moderate pain, Starting on Wed05/23/24 at 2115, For 2 doses $Given 05/23/2024 10:21 PM SEMIAUTOMATIC TAPER OPERATOR 2 mg $Given 05/23/2024 9:18 PM SEMIAUTOMATIC TAPER OPERATOR 2 mg HYDROmorphone (DILAUDID) injection 2 mg 2 mg, Intravenous, ONCE, On Wed05/23/24 at 2330, For 1 dose $Given 05/23/2024 11:20 PM SEMIAUTOMATIC TAPER OPERATOR 2 mg iopamidol (ISOVUE-370) solution 75 mL 75 mL, Intravenous, ONCE, On Wed05/23/24 at 2130, For 1 dose $Given 05/23/2024 9:33 PM SEMIAUTOMATIC TAPER OPERATOR 75 mLs lactated ringers BOLUS 1,000 mL Intravenous, 1,000 mL, ONCE, On Wed05/23/24 at 2200, For 1 dose $New Bag 05/23/2024 10:05 PM SEMIAUTOMATIC TAPER OPERATOR 1,000 mLs Lidocaine (LIDOCARE) 4 % Patch [...] post injection. $Patch/Med Applied 05/23/2024 10:53 PM SEMIAUTOMATIC TAPER OPERATOR 1 patch Left Chest ondansetron (ZOFRAN) injection 8 mg 8 mg, Intravenous, ONCE PRN, nausea, vomiting, Administer over 2-5 Minutes, Starting on Wed05/23/24 at 2159, For 1 dose $Given 05/23/2024 10:07 PM SEMIAUTOMATIC TAPER OPERATOR 8 mg documented in this encounter Active and Recently Administered Medications Times are shown in SEMIAUTOMATIC TAPER OPERATOR. Scheduled Medication Order 05/21/2024 05/22/2024 05/23/2024 diphenhydrAMINE [...] RN) documented in this encounter Care Teams Fern Picker Relationship Specialty Start Date End Date No Ref-Primary, Physician PCP - General 03/15/24 06/17/24 Mor Ramsey Medical Student 04/03/24 Case Samuel MD [address] [place] [address], [address] [place] [address] Assigned Pediatric Specialist Provider 05/18/24 documented as of this encounter
--- OUTSIDE RECORDS SUMMARY | 2024-06-22 01:10 | XMS_ITS | Encounter Summary ---
Author Organization [facility] Address [address] [place] [address]. [place] [address] Care Team Providers Care Mailing Machine Operator Name Role Phone No Ref-Primary, Physician Primary Care Provider Mor Ramsey Unavailable Unavailable Case Samuel MD Unavailable [phone] Encounter Details Date Type Department Care Team (Late st Contact Info) Description 05/22/2024 MyC Medical Advice [facility] Interventional Radiology [address] [place] [address] Yadi Mahan, RN Social History [...] on file Legal Sex Female 8:25 AM SWING TYPE LATHE OPERATOR Gender Identity Not on file Sexual Orientation Not on file documented as of this encounter Plan of Treatment Not on file documented as of this encounter Goals Goal Patient Goal Type Associated Problems Recent Progress Patient-Stated? Author Pain Management General On track( 025 12:40 PM SWING TYPE LATHE OPERATOR) Yes Juhi Benson, SOFIA Note: Goal [...] on filedocumented in this encounter Care Teams Mailing Machine Operator Relationship Specialty Start Date End Date No Ref-Primary, Physician PCP - General 03/15/24 06/17/24 Mor Ramsey Medical Student 04/03/24 Case Samuel MD [address] [place] [address], [address] [place] [address] Assigned Pediatric Specialist Provider 05/18/24 documented as of this encounter
--- OUTSIDE RECORDS SUMMARY | 2024-06-22 01:10 | XMS_ITS | Encounter Summary ---
Author Organization [facility] Address [address] [place] [address] Care Team Providers Care Sports Doctor Name Role Phone No Ref-Primary, Physician Primary Care Provider Mor Ramsey Unavailable Unavailable Case Samuel MD Unavailable [phone] Reason for Visit * Reason Onset Date Comments Refill Request 05/22/2024 Encounter Details Date Type Department Care Team ([facility] st Contact Info) Description 05/22/2024 MyC Refill [facility] [address] [place] [address] Case Samuel MD [address] [place] [address], [address] [place] [address] Refill Request Social History Tobacco [...] on file Legal Sex Female 8:25 AM CLAY PROCESSING LABOURER Gender Identity Not on file Sexual Orientation [...] and by whom: Dr. Samuel on 05/01/2024 CURTAIN ROLLER ASSEMBLER Reviewed: Yes Send to provider: Dr. Samuel and ESTEVAN Reynaga . PROCESSING LABOURER documented in this encounter Plan of Treatment Not on file documented as of this encounter Goals Goal Patient Goal Type Associated Problems Recent Progress Patient-Stated? Author Pain Management General On track( 025 12:40 PM CLAY PROCESSING LABOURER) Yes Juhi Benson, SOFIA Note: Goal Statement: [...] crisis documented in this encounter Care Teams Sports Doctor Relationship Specialty Start Date End Date No Ref-Primary, Physician PCP - General 03/15/24 06/17/24 Mor Ramsey Medical Student 04/03/24 Case Samuel MD [address] [place] [address], [address] [place], [place] [id number] Assigned Pediatric Specialist Provider 05/18/24 documented as of this encounter
--- OUTSIDE RECORDS SUMMARY | 2024-06-22 01:10 | XMS_ITS | Encounter Summary ---
Author Organization [facility] Address [address] [place] [address]. [place] [address] Care Team Providers Care Polymerization Kettle Operator Name Role Phone No Ref-Primary, Physician Primary Care Provider Mor Ramsey Unavailable Unavailable Case Samuel MD Unavailable [phone] Encounter Details Date Type Department Care Team [...] on file Legal Sex Female 8:25 AM EDI MANAGER Gender Identity Not on file Sexual Orientation Not on file documented as of this encounter Plan of Treatment Not on file documented as of this encounter Goals Goal Patient Goal Type Associated Problems Recent Progress Patient-Stated? Author Pain Management General On track( 025 12:40 PM EDI MANAGER) Yes Juhi Benson, RN Note: Goal [...] on filedocumented in this encounter Care Teams Polymerization Kettle Operator Relationship Specialty Start Date End Date No Ref-Primary, Physician PCP - General 03/15/24 06/17/24 Mor Ramsey Medical Student 04/03/24 Case Samuel MD [address] [place] [address], [address] [place] [address] Assigned Pediatric Specialist Provider 05/18/24 documented as of this encounter
--- OUTSIDE RECORDS SUMMARY | 2024-06-22 01:10 | XMS_ITS | Encounter Summary ---
Author Organization [facility] Address [address] [place] [address]. [place] [address] Care Team Providers Care Chicken Boner Name Role Phone No Ref-Primary, Physician Primary Care Provider Mor Ramsey Unavailable Unavailable Case Samuel MD Unavailable [phone] Encounter Details Date Type Department Care Team [...] in an abandoned building, in an overnight correction, or couch-surfing.) Yes 04/09/2024 Are you worried [...] on file Legal Sex Female 8:25 AM SPEED BELT SANDER TENDER Gender Identity Not on file Sexual Orientation Not on file documented as of this encounter Plan of Treatment Not on file documented as of this encounter Goals Goal Patient Goal Type Associated Problems Recent Progress Patient-Stated? Author Pain Management General On track( 025 12:40 PM SPEED BELT SANDER TENDER) Yes Juhi Benson, RN Note: Goal Statement: [...] on filedocumented in this encounter Care Teams Chicken Boner Relationship Specialty Start Date End Date No Ref-Primary, Physician PCP - General 03/15/24 06/17/24 Mor Ramsey Medical Student 04/03/24 Case Samuel MD [address] [place] [address], [address] [place] [address] Assigned Pediatric Specialist Provider 05/18/24 documented as of this encounter
--- OUTSIDE RECORDS SUMMARY | 2024-06-22 01:10 | XMS_ITS | Encounter Summary ---
Author Organization [facility] Address [address] [place] [address]. [place] [address] Care Team Providers Care Funeral Director Name Role Phone No Ref-Primary, Physician Primary Care Provider Mor Ramsey Unavailable Unavailable Case Samuel MD Unavailable [phone] Reason for Visit * Reason Comments Chest Pain Sickle Cell Pain Crisis Encounter Details Date Type Department Care Team (Late st Contact Info) Description 05/22/2024 3:27 PM BUDGET OFFICER - 05/22/2024 6:55 PM BUDGET OFFICER Emergency [facility] Emergency Room [facility] [place] [address] Bernabe Farley MD [facility] [address] [place] [phone] Sickle cell pain crisis (H) Discharge Disposition: [...] on file Legal Sex Female 8:25 AM BUDGET OFFICER Gender Identity Not on file Sexual Orientation Not on file documented as of this encounter Last Filed Vital Signs Vital Sign Reading Time Taken Comments Blood Pressure 111/59 05/22/2024 6:53 PM BUDGET OFFICER Pulse 106 05/22/2024 6:52 PM BUDGET OFFICER Temperature 36.7 C (98.1 F) 05/22/2024 3:11 PM BUDGET OFFICER Respiratory Rate 20 05/22/2024 3:11 PM BUDGET OFFICER Oxygen Saturation 95% 05/22/2024 6:52 PM BUDGET OFFICER Inhaled Oxygen Concentration - - Weight 51.7 kg (114 lb) 05/22/2024 3:11 PM BUDGET OFFICER Height 154.9 cm (5' 1) 05/22/2024 3:11 PM BUDGET OFFICER Body Mass Index 21.54 05/22/2024 3:11 PM BUDGET OFFICER documented in this encounter Discharge Instructions * Attachments The following attachments cannot be sent through Care Everywhere. * Sickle Cell Crisis (Albanian) documented in this encounter Medications at Time [...] RN - 05/22/2024 6:29 PM CST Bed: [facility] Expected date: Expected time: Means of arrival: Comments: Crash ET OFFICER * Bernabe Farley MD - 05/22/2024 3:27 [...] April. Today will be the 16th visit. [id number] Patient is a 29-year-old woman with history [...] and Inpatient Record: Patient was seen at [facility] ED on 05/20/23 Care impacted by chronic [...] Per chart review, patient was seen at [facility] ED on 05/20/24 for sickle cell pain [...] She has seen the oncologist at the [facility] and has future follow-up appointments for her [...] my direction. Bernabe Farley M.D. Emergency Medicine [facility] EMERGENCY ROOM [address] [facility] [id number] Dept: [phone] Bernabe Farley MD 05/22/240 ET OFFICER * Sanjay Purdy RN - 05/22/2024 3:10 [...] WDL WDL Cognitive/Neuro/Behavioral WDL Cognitive/Neuro/Behavioral WDL WDL ET OFFICER documented in this encounter Plan of Treatment Not on file documented as of this encounter Goals Goal Patient Goal Type Associated Problems Recent Progress Patient-Stated? Author Pain Management General On track( 025 12:40 PM BUDGET OFFICER) Yes Juhi Benson, SOFIA Note: Goal Statement: [...] CHEST 2 VIEWS STAT 05/22/2024 5:19 PM BUDGET OFFICER RBC AND PLATELET MORPHOLOGY STAT 05/22/2024 3:51 PM BUDGET OFFICER CBC WITH PLATELETS AND DIFFERENTIAL STAT 05/22/2024 3:51 PM BUDGET OFFICER CBC WITH PLATELETS & DIFFERENTIAL STAT 05/22/2024 3:51 PM BUDGET OFFICER BASIC METABOLIC PANEL STAT 05/22/2024 3:51 PM BUDGET OFFICER ECG 12-LEAD WITH MUSE SJN,SJO,WWH STAT 05/22/2024 3:14 PM BUDGET OFFICER documented in this encounter Results * Chest XR, PA & LAT (05/22/2024 5:19 PM BUDGET OFFICER) Anatomical Region Laterality Modality Chest Digital Radiogra phy 05/22/2024 5:19 PM BUDGET OFFICER Impressions 05/22/2024 5:42 PM BUDGET OFFICER IMPRESSION: Unchanged ill-defined hazy opacities in the peripheral right lung, which may correspond with nodular opacities seen on CT chest dated 05/04/2024. No new focal airspace disease. No pleural effusion or pneumothorax. The cardiomediastinal silhouette is unremarkable. Narrative 05/22/2024 5:42 PM BUDGET OFFICER EXAM: XR CHEST 2 VIEWS LOCATION: [facility] DATE: 05/22/2024 INDICATION: L chest pain, concern for acute chest syndome COMPARISON: 05/20/2024, CT chest 05/04/2024 Procedure Note Robert Marks MD - 05/22/2024 EXAM: XR CHEST 2 VIEWS LOCATION: [facility] DATE: 05/22/2024 INDICATION: L chest pain, concern for acute chest syndome COMPARISON: 05/20/2024, CT chest 05/04/2024 IMPRESSION: Unchanged ill-defined hazy opacities in the peripheral right lung, whichmay correspond with nodular opacities seen on CT chest dated 05/04/2024. No new focal airspace disease. No pleural effusion or pneumothorax. The cardiomediastinal silhouette is unremarkable. us Bernabe Farley MD [facility] ORDERA BLES Final Result * (ABNORMAL) RBC and Platelet Morphology (05/22/2024 3:51 PM BUDGET OFFICER) [facility] RBC Morphology Confirmed RBC Indices 05/22/2024 4:30 PM BUDGET OFFICER [facility] Platelet Assessment Automated Count Confirmed. Giant platelets are present.(A) Automated Count Confirmed. Platelet morphology is normal. JARET 05/22/2024 4:30 PM BUDGET OFFICER [facility] Giant Platelets Slight(A) None Seen [facility] 05/22/2024 4:30 PM BUDGET OFFICER [facility] Elliptocytes Slight(A) None Seen JARET 05/22/2024 4:30 PM BUDGET OFFICER [facility] Ziegler-Caney Bodies Present(A) None Seen [facility] 05/22/2024 4:30 PM BUDGET OFFICER [facility] Polychromasia Slight(A) None Seen JARET 05/22/2024 4:30 PM BUDGET OFFICER [facility] RBC Fragments Slight(A) None Seen [facility] 05/22/2024 4:30 PM BUDGET OFFICER [facility] Sickle Cells Moderate(A) None Seen [facility] 05/22/2024 4:30 PM BUDGET OFFICER [facility] Target Cells Slight(A) None Seen [facility] 05/22/2024 4:30 PM [facility] Blood VENOUS LINE / Unknown Venipuncture / Unknown 05/22/2024 3:51 PM BUDGET OFFICER 05/22/2024 3:54 PM BUDGET OFFICER us Bernabe Farley MD LAB - BLOOD ORDERABLES Final Result [facility] [address] [place] [address], [place] * (ABNORMAL) CBC with platelets and differential (05/22/2024 3:51 PM BUDGET OFFICER) WBC Count 14.5(H) 4.0 - 11.0 10e3/uL 05/22/2024 4:30 PM [facility] RBC Count 2.59(L) 3.80 - 5.20 10e6/uL 05/22/2024 4:30 PM [facility] Hemoglobin 8.2(L) 11.7 - 15.7 g/dL 05/22/2024 4:30 PM [facility] Hematocrit 23.4(L) 35.0 - 47.0 % 05/22/2024 4:30 PM [facility] MCV 90 78 - 100 fL 05/22/2024 4:30 PM [facility] MCH 31.7 26.5 - 33.0 pg 05/22/2024 4:30 PM [facility] MCHC 35.0 31.5 - 36.5 g/dL 05/22/2024 4:30 PM [facility] RDW 22.9(H) 10.0 - 15.0 % 05/22/2024 4:30 PM [facility] Platelet Count 552(H) 150 - 450 10e3/uL 05/22/2024 4:30 PM [facility] % Neutrophils 53 % 05/22/2024 4:30 PM [facility] % Lymphocytes 30 % 05/22/2024 4:30 PM [facility] % Monocytes 14 % 05/22/2024 4:30 PM [facility] % Eosinophils 1 % 05/22/2024 4:30 PM [facility] % Basophils 1 % 05/22/2024 4:30 PM [facility] % Immature Granulocytes 1 % 05/22/2024 4:30 PM [facility] NRBCs per 100 WBC 2(H) <1 /100 025 4:30 PM [facility] Absolute Neutrophils 7.7 1.6 - 8.3 10e3/uL 05/22/2024 4:30 PM [facility] Absolute Lymphocytes 4.3 0.8 - 5.3 10e3/uL 05/22/2024 4:30 PM [facility] Absolute Monocytes 2.0(H) 0.0 - 1.3 10e3/uL 05/22/2024 4:30 PM [facility] Absolute Eosinophils 0.1 0.0 - 0.7 10e3/uL 05/22/2024 4:30 PM [facility] Absolute Basophils 0.2 0.0 - 0.2 10e3/uL 05/22/2024 4:30 PM [facility] Absolute Immature Granulocytes 0.2 <=0.4 10e3/uL 05/22/2024 4:30 PM [facility] Absolute NRBCs 0.3 10e3/uL 05/22/2024 4:30 PM [facility] Blood VENOUS LINE / Unknown Venipuncture / Unknown 05/22/2024 3:51 PM BUDGET OFFICER 05/22/2024 3:54 PM [facility] us Bernabe Farley MD LAB - BLOOD ORDERABLES Final Result [facility] [address] [place], [place] [address] * (ABNORMAL) Basic metabolic panel (05/22/2024 3:51 PM BUDGET OFFICER) Sodium 138 135 - 145 mmol/L 05/22/2024 4:12 PM [facility] Potassium 4.8 3.4 - 5.3 mmol/L 05/22/2024 4:12 PM [facility] Chloride 107 98 - 107 mmol/L 05/22/2024 4:12 PM [facility] Carbon Dioxide (CO2) 20(L) 22 - 29 mmol/L 05/22/2024 4:12 PM [facility] Anion Gap 11 7 - 15 mmol/L 05/22/2024 4:12 PM [facility] Urea Nitrogen 9.9 6.0 - 20.0 mg/dL 05/22/2024 4:12 PM [facility] Creatinine 0.91 0.51 - 0.95 mg/dL 05/22/2024 4:12 PM [facility] GFR Estimate 87 >60 mL/min/1.7 3m2 05/22/2024 4:12 PM [facility] Comment:eGFR calculated usin 2020 CKD-EPI equation. Calcium 9.6 8.8 - 10.4 mg/dL 05/22/2024 4:12 PM BUDGET OFFICER [facility] Comment:Reference intervals for this test were updated on 11/09/2023 to reflect our healthy population more accurately. There may be differences in the flagging of prior results with similar values performed with this method. Those prior results can be interpreted in the context of the updated reference intervals. Glucose 100(H) 70 - 99 mg/dL 05/22/2024 4:12 PM BUDGET OFFICER [facility] Blood VENOUS LINE / Unknown Venipuncture / Unknown 05/22/2024 3:51 PM BUDGET OFFICER 05/22/2024 3:54 PM BUDGET OFFICER us Bernabe Farley MD LAB - BLOOD ORDERABLES Final Result Performing Organization Address City/[facility]/ZIP Co de Phone Number [facility] [address] * ECG 12-LEAD WITH MUSE (LHE) (05/22/2024 3:14 PM BUDGET OFFICER) Systolic Blood Pressure mmHg RADIOLOGY RESULTS Diastolic Blood Pressure mmHg RADIOLOGY RESULTS Ventricular Rate 103 BPM RAD IOLOGY RESULTS Atrial Rate 103 BPM RADIOLOG Y RESULTS LA Interval 124 ms RADIOLOG Y RESULTS QRS Duration 80 ms RADIOLO GY RESULTS QT 316 ms RADIOLOGY RESULTS QTc 413 ms RADIOLOGY RESULTS P [place] 82 degrees RADIOLOGY RESULTS R AXIS 90 degrees RADIOLOGY RESULTS T [place] 70 degrees RADIOLOGY RESULTS Interpretation ECG Sinus tachycardia Rightward axis Borderline ECG When compared with ECG of 20-May-2024 07:36, Nonspecific T wave abnormality no longer evident in Anterior leads Confirmed by SEE ED PROVIDER NOTE FOR, ECG INTERPRETATION (4000), news video editor Leticia Warner ([id number]) on 05/22/2024 4:13:58 PM RADIOLOGY RESULTS 05/22/2024 3:14 PM BUDGET OFFICER 05/22/2024 4:13 PM BUDGET OFFICER us Bernabe Farley MD ECG ORDERABLES Edited Result - Final Performing Organization Address City/[facility]/ZIP Co de Phone Number RADIOLOGY RESULTS documented [...] For 1 dose $Given 05/22/2024 4:00 PM BUDGET OFFICER 25 mg HYDROmorphone (DILAUDID) injection 2 mg 2 mg, Intravenous, EVERY 1 HOUR PRN, severe pain, Starting on Wed05/22/24 at 1537, For 3 doses $Given 05/22/2024 6:39 PM BUDGET OFFICER 2 mg $Given 05/22/2024 5:33 PM BUDGET OFFICER 2 mg $Given 05/22/2024 4:00 PM BUDGET OFFICER 2 mg lactated ringers BOLUS 500 mL Intravenous, 500 mL, ONCE, On Wed05/22/24 at 1600, For 1 dose $New Bag 05/22/2024 4:13 PM BUDGET OFFICER 500 mLs ondansetron (ZOFRAN) injection 4 mg 4 mg, Intravenous, ONCE, Administer over 2-5 Minutes, On Wed05/22/24 at 1600, For 1 dose $Given 05/22/2024 4:00 PM BUDGET OFFICER 4 mg documented in this encounter Active and Recently Administered Medications Times are shown in BUDGET OFFICER. Scheduled Medication Order 05/20/2024 05/21/2024 05/22/2024 diphenhydrAMINE [...] SOFIA) documented in this encounter Care Teams Funeral Director Relationship Specialty Start Date End Date No Ref-Primary, Physician PCP - General 03/15/24 06/17/24 Elvira Ramseyc Medical Student 04/03/24 Case Samuel MD [address] [place] [address], [address] [place] [address] Assigned Pediatric Specialist Provider 05/18/24 documented as of this encounter
--- OUTSIDE RECORDS SUMMARY | 2024-06-22 01:10 | XMS_ITS | Encounter Summary ---
Author Organization [facility] Address [address] [place] [address]. [place] [address] Care Team Providers Care Gas Station Attendant Name Role Phone No Ref-Primary, Physician Primary Care Provider Mor Ramsey Unavailable Unavailable Case Samuel MD Unavailable [phone] Reason for Visit * Reason Comments Chest Pain Encounter Details Date Type Department Care Team (Late st Contact Info) Description 05/27/2024 11:58 AM SERVICES REP - 05/27/2024 6:07 PM [facility] Emergency [facility] Emergency Room [facility] [place] [phone] Blas Mcclellan MD [address] [place] [id number] Marly Gross, DO [facility] [address] [place] [id number] Sickle cell disease with crisis (H) Discharge [...] on file Legal Sex Female 8:25 AM SERVICES REP Gender Identity Not on file Sexual Orientation Not on file documented as of this encounter Last Filed Vital Signs Vital Sign Reading Time Taken Comments Blood Pressure 123/76 05/27/2024 5:15 PM SERVICES REP Pulse 97 05/27/2024 5:15 PM SERVICES REP Temperature 36.9 C (98.5 F) 05/27/2024 11:57 AM SERVICES REP Respiratory Rate 24 05/27/2024 5:37 PM SERVICES REP Oxygen Saturation 96% 05/27/2024 5:15 PM SERVICES REP Inhaled Oxygen Concentration - - Weight 51.7 kg (114 lb) 05/27/2024 11:56 AM SERVICES REP Height 154.9 cm (5' 1) 05/27/2024 11:56 AM SERVICES REP Body Mass Index 21.54 05/27/2024 11:56 AM SERVICES REP documented in this encounter Discharge Instructions * Attachments The following attachments cannot be sent through Care Everywhere. * Sickle Cell Crisis (Australian) documented in this encounter Medications at Time [...] Hemoglobin 7.1. No indication [facility]. Additional ED Course Timeline: 5:01 PM I introduced myself to the patient. She would like her last dose of dilaudid per care plan and is comfortable with being discharged home afterwards. She has follow up with her [employer]cher in2 days which I encouraged her to [...] on file Marly Gross DO Emergency Medicine [facility] EMERGENCY ROOM [address] [facility] [phone] Marly Gross DO 05/27/24 0680 ICES REP * Blas Mcclellan MD - 05/27/2024 12:32 [...] reviewed?: Documented in chart and Outpatient Record: [facility] ED 05/23/2024 and [facility] visit 05/25/2024 Care impacted by chronic illness:Documented in Chart Did you consider but not order tests?: Work up considered but not performed and documented in chart, if applicable Did you interpret images independently?: Independent interpretation of ECG and images noted in documentation, when applicable. Consultation discussion with other provider:Did you involve another provider (implementation consultant, , pharmacy, etc.)?: No Admission considered. 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 Per chart review, patient was seen by oncology at [facility] on 05/01/2024 for new outpatient hematology visit for initiation of care for sickle cell disease. [facility] [place] [place] [facility] 2 months [facility]. She reported [...] had 2 ports placed on 05/25/2024 at [facility]. Apheresis on the right, 6 pashto smart port on the left. Patient tolerated [...] Currently Drug use: Never Social History Narrative [id number] mom. Recently moved to [place] from [place], [place]. She is 1 of 9 [...] Social Connections: Socially Integrated (03/28/2024) [facility] Do you often [...] was found. Rate: 91 bpm Rhythm: Sinus Martin: 39 62 23 NH Interval: 142 ms QRS Interval: 80 ms [...] my direction. Blas Mcclellan M.D. Emergency Medicine [facility] EMERGENCY ROOM [address] [place] [phone] Dept: [phone] Blas Mcclellan MD 05/27/24 1507 ICES REP * Yanely Avendano RN - 05/27/2024 12:02 [...] WDL WDL Cognitive/Neuro/Behavioral WDL Cognitive/Neuro/Behavioral WDL WDL ICES REP documented in this encounter Plan of Treatment Not on file documented as of this encounter Goals Goal Patient Goal Type Associated Problems Recent Progress Patient-Stated? Author Pain Management General On track( 025 12:40 PM SERVICES REP) Yes Juhi Benson, RN Note: Goal Statement: [...] MANUAL DIFFERENTIAL STAT 05/27/2024 3 :13 PM SERVICES REP CBC WITH PLATELETS AND DIFFERENTIAL STAT 05/27/2024 3:13 PM SERVICES REP CBC WITH PLATELETS & DIFFERENTIAL STAT 05/27/2024 3:13 PM SERVICES REP RETICULOCYTE COUNT STAT 05/27/2024 3: 13 PM SERVICES REP XR CHEST 2 VIEWS STAT 05/27/2024 2:57 PM SERVICES REP COMPREHENSIVE METABOLIC PANEL STAT 05/27/2024 2:30 PM SERVICES REP ECG 12-LEAD WITH MUSE SJN,SJO,WWH STAT 05/27/2024 12:12 PM SERVICES REP documented in this encounter Results * (ABNORMAL) Manual Differential (05/27/2024 3:13 PM SERVICES REP) Pathologist [facility] % Neutrophils 71 % JARET 05/27/2024 3:51 PM SERVICES REP [facility] % Lymphocytes 20 % JARET 05/27/2024 3:51 PM SERVICES REP [facility] % Monocytes 9 % JARET 05/27/2024 3:51 PM [facility] % Eosinophils 0 % JARET 05/27/2024 3:51 PM [facility] % Basophils 0 % JARET 05/27/2024 3:51 PM [facility] Absolute Neutrophils 11.1(H) 1.6 - 8.3 10e3/uL JARET 05/27/2024 3:51 PM [facility] Absolute Lymphocytes 3.1 0.8 - 5.3 10e3/uL JARET 05/27/2024 3:51 PM [facility] Absolute Monocytes 1.4(H) 0.0 - 1.3 10e3/uL JARET 05/27/2024 3:51 PM [facility] Absolute Eosinophils 0.0 0.0 - 0.7 10e3/uL JARET 05/27/2024 3:51 PM SERVICES REP [facility] Absolute Basophils 0.0 0.0 - 0.2 10e3/uL JARET 05/27/2024 3:51 PM [facility] RBC Morphology Confirmed RBC Indices JARET 05/27/2024 3:51 PM [facility] Platelet Assessment Automated Count Confirmed. Platelet morphology is normal. Automated Count Confirmed. Platelet morphology is normal. JARET 05/27/2024 3:51 PM [facility] Acanthocytes Slight(A) None Seen JARET 05/27/2024 3:51 PM [facility] Elliptocytes Slight(A) None Seen JARET 05/27/2024 3:51 PM [facility] RBC Fragments Slight(A) None Seen JARET 05/27/2024 3:51 PM [facility] Polychromasia Slight(A) None Seen JARET 05/27/2024 3:51 PM [facility] Sickle Cells Moderate(A) None Seen JARET 05/27/2024 3:51 PM [facility] Target Cells Slight(A) None Seen JARET 05/27/2024 3:51 PM [facility] Blood (Portacath) Venipuncture / Unknown 05/27/2024 3:13 PM SERVICES REP 05/27/2024 3:15 PM [facility] Blas Mcclellan MD LAB - BLOOD ORDERABLES Final Result [facility] [address] [place] [address], [facility] * (ABNORMAL) CBC with platelets and differential (05/27/2024 3:13 PM SERVICES REP) WBC Count 15.7(H) 4.0 - 11.0 10e3/uL 05/27/2024 3:48 PM [facility] RBC Count 2.21(L) 3.80 - 5.20 10e6/uL 05/27/2024 3:48 PM [facility] Hemoglobin 7.1(L) 11.7 - 15.7 g/dL 05/27/2024 3:48 PM [facility] Hematocrit 20.2(L) 35.0 - 47.0 % 05/27/2024 3:48 PM [facility] MCV 91 78 - 100 fL 05/27/2024 3:48 PM [facility] MCH 32.1 26.5 - 33.0 pg 05/27/2024 3:48 PM [facility] MCHC 35.1 31.5 - 36.5 g/dL 05/27/2024 3:48 PM [facility] RDW 23.0(H) 10.0 - 15.0 % 05/27/2024 3:48 PM [facility] Platelet Count 429 150 - 450 10e3/uL 05/27/2024 3:48 PM [facility] Blood (Portacath) Venipuncture / Unknown 05/27/2024 3:13 PM SERVICES REP 05/27/2024 3:15 PM [facility] us Blas Mcclellan MD LAB - BLOOD ORDERABLES Final Result [facility] [address] [place] [address], [facility] * (ABNORMAL) Reticulocyte count (05/27/2024 3:13 PM SERVICES REP) % Reticulocyte 28.0(H) 0.5 - 2.0 % 05/27/2024 3:19 PM SERVICES REP [facility] Absolute Reticulocyte 0.619(H) 0.025 - 0.095 10e6/uL 05/27/2024 3:19 PM SERVICES REP [facility] Blood (Portacath) Venipuncture / Unknown 05/27/2024 3:13 PM SERVICES REP 05/27/2024 3:15 PM SERVICES REP Blas Mcclellan MD LAB - BLOOD ORDERABLES Final Result [facility] [address] [address], [facility] * Chest XR, PA & LAT (05/27/2024 2:57 PM SERVICES REP) Anatomical Region Laterality Modality Chest Digital Radiogra phy 05/27/2024 2:57 PM SERVICES REP Impressions 05/27/2024 3:03 PM SERVICES REP IMPRESSION: New right and left chest ports, with catheter tips at the superior cavoatrial junction. Unchanged patchy opacities in the right greater mid to lower lungs. No consolidation or pleural effusion. Stable mediastinal silhouette. Narrative 05/27/2024 3:03 PM SERVICES REP EXAM: XR CHEST 2 VIEWS LOCATION: [facility] DATE: 05/27/2024 INDICATION: chest pain, sickle cell, bilateral port placement 3 days ago COMPARISON: 05/22/2024 Procedure Note Rachel Joe MD - 05/27/2024 EXAM: XR CHEST 2 VIEWS LOCATION: [facility] DATE: 05/27/2024 INDICATION: chest pain, sickle cell, [...] (ABNORMAL) Comprehensive metabolic panel (05/27/2024 2:30 PM SERVICES REP) [facility] Sodium 136 135 - 145 mmol/L 05/27/2024 2:59 PM [facility] Potassium 4.8 3.4 - 5.3 mmol/L 05/27/2024 2:59 PM [facility] Carbon Dioxide (CO2) 18(L) 22 - 29 mmol/L 05/27/2024 2:59 PM [facility] Anion Gap 12 7 - 15 mmol/L 05/27/2024 2:59 PM [facility] Urea Nitrogen 8.4 6.0 - 20.0 mg/dL 05/27/2024 2:59 PM [facility] Creatinine 0.67 0.51 - 0.95 mg/dL 05/27/2024 2:59 PM [facility] GFR Estimate >90 >60 mL/min/1.7 3m2 05/27/2024 2:59 PM [facility] Comment:eGFR calculated us2020 CKD-EPI equation. Calcium 9.3 8.8 - 10.4 mg/dL 05/27/2024 2:59 PM [facility] Chloride 106 98 - 107 mmol/L 05/27/2024 2:59 PM [facility] Glucose 97 70 - 99 mg/dL 05/27/2024 2:59 PM [facility] Alkaline Phosphatase 94 40 - 150 U/L 05/27/2024 2:59 PM [facility] AST 51(H) 0 - 45 U/L 05/27/2024 2:59 PM [facility] ALT 19 0 - 50 U/L 05/27/2024 2:59 PM [facility] Protein Total 7.7 6.4 - 8.3 g/dL 05/27/2024 2:59 PM [facility] Albumin 4.4 3.5 - 5.2 g/dL 05/27/2024 2:59 PM [facility] Bilirubin Total 2.7(H) <=1.2 mg/dL 05/27/2024 2:59 PM [facility] Blood VENOUS LINE / Unknown Venipuncture / Unknown 05/27/2024 2:30 PM SERVICES REP 05/27/2024 2:36 PM [facility] Blas Mcclellan MD LAB - BLOOD ORDERABLES Final Result [facility] [address] [place] [address], [facility] * ECG 12-LEAD WITH MUSE (LHE) (05/27/2024 12:12 PM SERVICES REP) Systolic Blood Pressure 110 mmHg RADIOLOGY RESULTS Diastolic Blood Pressure 63 mmHg RADIOLOGY RESULTS Ventricular Rate 91 BPM RAD IOLOGY RESULTS Atrial Rate 91 BPM RADIOLOG Y RESULTS NH Interval 142 ms RADIOLOG Y RESULTS QRS Duration 80 ms RADIOLO GY RESULTS QT 352 ms RADIOLOGY RESULTS QTc 432 ms RADIOLOGY RESULTS P Martin 39 degrees RADIOLOGY RESULTS R AXIS 62 degrees RADIOLOGY RESULTS T Martin 23 degrees RADIOLOGY RESULTS Interpretation ECG Sinus rhythm Nonspecific T wave abnormality Abnormal ECG When compared with ECG of 23-May-2024 18:54, Nonspecific T wave abnormality now evident in Inferior leads Nonspecific T wave abnormality now evident in Anterior leads Confirmed by SEE ED PROVIDER NOTE FOR, ECG INTERPRETATION ([id number]), editor sound BEN PRAKASH ([id number]) on 05/27/2024 12:22:37 PM RADIOLOGY RESULTS 05/27/2024 12:1 2 PM SERVICES REP 05/27/2024 12:22 PM SERVICES REP us Blas Mcclellan MD ECG ORDERABLES Edited [...] For 1 dose $Given 05/27/2024 4:34 PM SERVICES REP 25 mg heparin lock flush 100 unit/mL injection 5 mL 5 mL, Intracatheter, ONCE, On 05/27/24 at 1730, For 1 dose $Given 05/27/2024 5:33 PM SERVICES REP 5 mLs HYDROmorphone (DILAUDID) injection 2 mg 2 mg, Intravenous, ONCE, On 05/27/24 at 1300, For 1 dose $Given 05/27/2024 2:43 PM SERVICES REP 2 mg HYDROmorphone (DILAUDID) injection 2 mg 2 mg, Intravenous, ONCE, On 05/27/24 at 1630, For 1 dose $Given 05/27/2024 4:37 PM SERVICES REP 2 mg HYDROmorphone (DILAUDID) injection 2 mg 2 mg, Intravenous, ONCE, On 05/27/24 at 1730, For 1 dose $Given 05/27/2024 5:09 PM SERVICES REP 2 mg lactated ringers BOLUS 1,000 mL Intravenous, 1,000 mL, ONCE, On 05/27/24 at 1300, For 1 dose $New Bag 05/27/2024 2:33 PM SERVICES REP 1,000 mLs ondansetron (ZOFRAN) injection 8 mg 8 mg, Intravenous, ONCE, Administer over 2-5 Minutes, On 05/27/24 at 1300, For 1 dose $Given 05/27/2024 2:40 PM SERVICES REP 8 mg documented in this encounter Active and Recently Administered Medications Times are shown in SERVICES REP. Scheduled Medication Order 05/25/2024 05/26/2024 05/27/2024 diphenhydrAMINE [...] SOFIA) documented in this encounter Care Teams Gas Station Attendant Relationship Specialty Start Date End Date No Ref-Primary, Physician PCP - General 03/15/24 06/17/24 Mor Ramsey Medical Student 04/03/24 Case Samuel MD [address] [place] [address], [address] [place] [address] Assigned Pediatric Specialist Provider 05/18/24 documented as of this encounter
--- OUTSIDE RECORDS SUMMARY | 2024-06-22 01:10 | XMS_ITS | Encounter Summary ---
Author Organization [facility] Address [address] [place] [address]. 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 Author Pain Management General On track( 025 12:40 PM BRICK MACHINE OPERATOR) Yes Juhi Benson, RN Note: [...] on filedocumented in this encounter Care Teams Rental Car Deliverer Relationship Specialty Start Date End Date No Ref-Primary, Physician PCP - General 03/15/24 06/17/24 Mor Ramsey Medical Student 04/03/24 Case Samuel MD [address] [place] [address], [address] [place] [address] Assigned Pediatric Specialist Provider 05/18/24 documented as of this encounter
--- OUTSIDE RECORDS SUMMARY | 2024-06-22 01:10 | XMS_ITS | Encounter Summary ---
Author Organization [facility] Address [address] [place] [address]. 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 Author Pain Management General On track( 025 12:40 PM PHARMACY SERVICE ASSOCIATE) Yes Juhi Benson, RN Note: Goal [...] on filedocumented in this encounter Care Teams Montessori Program Director Relationship Specialty Start Date End Date No Ref-Primary, Physician PCP - General 03/15/24 06/17/24 Mor Ramsey Medical Student 04/03/24 Case Samuel MD [address] [place] [address], [address] [place] [address] Assigned Pediatric Specialist Provider 05/18/24 documented as of this encounter
--- OUTSIDE RECORDS SUMMARY | 2024-06-22 01:11 | XMS_ITS | Encounter Summary ---
Author Organization [facility] Address [address] [place] [address]. [place] [address] Care Team Providers Care Automotive Quality Manager Name Role Phone No Ref-Primary, Physician Primary Care Provider Mor Ramsey Unavailable Unavailable Reason for Visit * Reason Comments Sickle Cell Pain Crisis Encounter Details Date Type Department Care Team (Late st Contact Info) Description 05/14/2024 10:07 PM STATE INSPECTOR - 05/15/2024 12:14 AM [facility] Emergency [facility] Emergency Room [facility] [place] [phone] Marguerite Ponce PA-C [facility] [address] [place] [id number] Sickle cell pain crisis (H) Discharge Disposition: [...] on file Legal Sex Female 8:25 AM STATE INSPECTOR Gender Identity Not on file Sexual Orientation Not on file documented as of this encounter Last Filed Vital Signs Vital Sign Reading Time Taken Comments Blood Pressure 113/64 05/15/2024 12:03 AM STATE INSPECTOR Pulse 97 05/15/2024 12:11 AM STATE INSPECTOR Temperature 36.7 C (98 F) 05/14/2024 9:33 PM STATE INSPECTOR Respiratory Rate 16 05/14/2024 9:33 PM STATE INSPECTOR Oxygen Saturation 94% 05/15/2024 12:11 AM STATE INSPECTOR Inhaled Oxygen Concentration - - Weight 52.2 kg (115 lb) 05/14/2024 9:33 PM STATE INSPECTOR Height 154.9 cm (5' 1) 05/14/2024 9:33 PM STATE INSPECTOR Body Mass Index 21.73 05/14/2024 9:33 PM STATE INSPECTOR documented in this encounter Discharge Instructions * Discharge Instructions* Marguerite Ponce PA-C - 05/15/2024 12:02 AM STATE INSPECTOR You were seen in the ER today [...] clinic for management of your sickle cell. E INSPECTOR documented in this encounter Medications at Time [...] questions were answered. Vitally stable upon discharge. E INSPECTOR * Ana Leon RN - 05/14/2024 9:35 PM CST Reports sickle cell crisis and hurts all over Seen here yesterday for same symptoms Triage Assessment (Adult) Row Name 05/14/248 Triage Assessment Airway WDL WDL Respiratory WDL Respiratory WDL WDL Skin Circulation/Temperature WDL Skin Circulation/Temperature WDL WDL Cardiac WDL Cardiac WDL WDL Peripheral/Neurovascular WDL Peripheral Neurovascular WDL WDL Cognitive/Neuro/Behavioral WDL Cognitive/Neuro/Behavioral WDL WDL E INSPECTOR * Marguerite Ponce PA-C - 05/14/2024 9:33 [...] with other provider:Did you involve another provider (planning consultant, , pharmacy, etc.)?: No Discharge. No [...] 1,000 mL (0 mLs Intravenous Stopped 05/14/24 7044) HYDROmorphone (DILAUDID) injection 2 mg (2 mg [...] of 15:38 Rate: 97 BPM Rhythm: sinus [place]: 19 81 58 FL Interval: 142 ms QRS Interval: 80 ms [...] my direction. Marguerite Ponce PA-C Emergency Medicine [facility] EMERGENCY ROOM Marguerite Ponce PA-C 05/15/24 0004 E INSPECTOR documented in this encounter Plan of Treatment Not on file documented as of this encounter Goals Goal Patient Goal Type Associated Problems Recent Progress Patient-Stated? Author Pain Management General On track( 025 12:40 PM STATE INSPECTOR) Yes Juhi Benson, SOFIA Note: Goal Statement: [...] MANUAL DIFFERENTIAL STAT 05/14/2024 1 0:24 PM STATE INSPECTOR CBC WITH PLATELETS AND DIFFERENTIAL STAT 05/14/2024 10:24 PM STATE INSPECTOR TROPONIN T, HIGH SENSITIVITY STAT 05/14/2024 10:24 PM STATE INSPECTOR CBC WITH PLATELETS & DIFFERENTIAL STAT 05/14/2024 10:24 PM STATE INSPECTOR RETICULOCYTE COUNT STAT 05/14/2024 10 :24 PM STATE INSPECTOR HEPATIC FUNCTION PANEL STAT 05/14/2024 10:24 PM STATE INSPECTOR HCG QUALITATIVE STAT 05/14/2024 10:24 PM STATE INSPECTOR BASIC METABOLIC PANEL STAT 05/14/2024 10:24 PM STATE INSPECTOR ECG 12-LEAD WITH MUSE SJN,SJO,WWH STAT 05/14/2024 10:12 PM STATE INSPECTOR documented in this encounter Results * (ABNORMAL) Manual Differential (05/14/2024 10:24 PM STATE INSPECTOR) % Neutrophils 63 % JARET 05/14/2024 10:58 PM STATE INSPECTOR [facility] % Lymphocytes 29 % JARET 05/14/2024 10:58 PM STATE INSPECTOR [facility] % Monocytes 8 % JARET 05/14/2024 10:58 PM STATE INSPECTOR [facility] % Eosinophils 0 % JARET 05/14/2024 10:58 PM STATE INSPECTOR [facility] % Basophils 0 % JARET 05/14/2024 10:58 PM STATE INSPECTOR [facility] Absolute Neutrophils 11.3(H) 1.6 - 8.3 10e3/uL JARET 05/14/2024 10:58 PM [facility] Absolute Lymphocytes 5.2 0.8 - 5.3 10e3/uL JARET 05/14/2024 10:58 PM [facility] Absolute Monocytes 1.4(H) 0.0 - 1.3 10e3/uL JARET 05/14/2024 10:58 PM [facility] Absolute Eosinophils 0.0 0.0 - 0.7 10e3/uL JARET 05/14/2024 10:58 PM [facility] Absolute Basophils 0.0 0.0 - 0.2 10e3/uL JARET 05/14/2024 10:58 PM [facility] NRBCs per 100 WBC 1 % JARET 05/14/2024 10:58 PM [facility] Absolute NRBCs 0.2 10e3/uL JARET 05/14/2024 10:58 PM [facility] RBC Morphology Confirmed RBC Indices JARET 05/14/2024 10:58 PM [facility] Platelet Assessment Automated Count Confirmed. Platelet morphology is normal. Automated Count Confirmed. Platelet morphology is normal. JARET 05/14/2024 10:58 PM [facility] Acanthocytes Slight(A) None Seen JARET 05/14/2024 10:58 PM [facility] Elliptocytes Slight(A) None Seen JARET 05/14/2024 10:58 PM [facility] Polychromasia Slight(A) None Seen JARET 05/14/2024 10:58 PM [facility] Sickle Cells Moderate(A) None Seen [facility] 05/14/2024 10:58 PM [facility] Target Cells Slight(A) None Seen [facility] 05/14/2024 10:58 PM [facility] Blood BLOOD SPECIMEN / Unknown Venipuncture / Unknown 05/14/2024 10:24 PM [facility] 05/14/2024 10:30 PM [facility] us Marguerite Ponce PA-C LAB - BLOOD ORDERABLES Final R esult [facility] [address] [place] [address], [facility] * (ABNORMAL) CBC with platelets and differential (05/14/2024 10:24 PM STATE INSPECTOR) WBC Count 17.9(H) 4.0 - 11.0 10e3/uL 05/14/2024 10:58 PM STATE INSPECTOR [facility] RBC Count 2.32(L) 3.80 - 5.20 10e6/uL 05/14/2024 10:58 PM [facility] Hemoglobin 7.6(L) 11.7 - 15.7 g/dL 05/14/2024 10:58 PM [facility] Hematocrit 21.4(L) 35.0 - 47.0 % 05/14/2024 10:58 PM [facility] MCV 92 78 - 100 fL 05/14/2024 10:58 PM [facility] MCH 32.8 26.5 - 33.0 pg 05/14/2024 10:58 PM [facility] MCHC 35.5 31.5 - 36.5 g/dL 05/14/2024 10:58 PM [facility] RDW 24.7(H) 10.0 - 15.0 % 05/14/2024 10:58 PM [facility] Platelet Count 487(H) 150 - 450 10e3/uL 05/14/2024 10:58 PM [facility] Blood BLOOD SPECIMEN / Unknown Venipuncture / Unknown 05/14/2024 10:24 PM STATE INSPECTOR 05/14/2024 10:30 PM STATE INSPECTOR us Marguerite Ponce PA-C LAB - BLOOD ORDERABLES Final R esult [facility] [address] [place] [place] [address], [facility] * HCG QUALitative (blood) (05/14/2024 10:24 PM STATE INSPECTOR) Pathologist [facility] hCG Serum Qualitative Negative Negative JARET 05/14/2024 10:54 PM STATE INSPECTOR [facility] Comment:This test is for scr eening purposes. Results should be interpreted along with the clinical picture. Confirmation testing is available if warranted by ordering [id number], HCG Quantitative . Blood BLOOD SPECIMEN / Unknown Venipuncture / Unknown 05/14/2024 10:24 PM STATE INSPECTOR 05/14/2024 10:30 PM STATE INSPECTOR Marguerite Ponce PA-C LAB - BLOOD ORDERABLES Final R esult Performing Organization Address [facility] Co de Phone Number [facility] [address] [place] [address] [place] [address], [facility] * Troponin T, High Sensitivity (05/14/2024 10:24 PM STATE INSPECTOR) Pathologist [facility] Troponin T, High Sensitivity <6 <=14 ng/L 05/14/2024 10:53 PM STATE INSPECTOR [facility] Comment: Either a High Sensitivity [...] Unknown Venipuncture / Unknown 05/14/2024 10:24 PM STATE INSPECTOR 05/14/2024 10:30 PM STATE INSPECTOR Marguerite Ponce PA-C LAB - BLOOD ORDERABLES Final R esult Performing Organization Address [facility] Co de Phone Number [facility] [address] [place] [address] [place] [address], [place] * (ABNORMAL) Reticulocyte count (05/14/2024 10:24 PM STATE INSPECTOR) % Reticulocyte 27.5(H) 0.5 - 2.0 % 05/14/2024 10:33 PM STATE INSPECTOR [facility] Absolute Reticulocyte 0.639(H) 0.025 - 0.095 10e6/uL 05/14/2024 10:33 PM STATE INSPECTOR [facility] Blood BLOOD SPECIMEN / Unknown Venipuncture / Unknown 05/14/2024 10:24 PM STATE INSPECTOR 05/14/2024 10:30 PM STATE INSPECTOR Marguerite Ponce PA-C LAB - BLOOD ORDERABLES Final R esult Performing Organization Address City/[facility]/ZIP Co de Phone Number [facility] [address] [place] [address] Dr[address] [place], [place] [address], [facility] * (ABNORMAL) Hepatic function panel (05/14/2024 10:24 PM STATE INSPECTOR) Protein Total 7.9 6.4 - 8.3 g/dL 05/14/2024 10:53 PM [facility] Albumin 4.4 3.5 - 5.2 g/dL 05/14/2024 10:53 PM [facility] Bilirubin Total 2.8(H) <=1.2 mg/dL 05/14/2024 10:53 PM [facility] Alkaline Phosphatase 120 40 - 150 U/L 05/14/2024 10:53 PM [facility] AST 67(H) 0 - 45 U/L 05/14/2024 10:53 PM [facility] ALT 51(H) 0 - 50 U/L 05/14/2024 10:53 PM [facility] Bilirubin Direct 0.70(H) 0.00 - 0.30 mg/dL 05/14/2024 10:53 PM [facility] Blood BLOOD SPECIMEN / Unknown Venipuncture / Unknown 05/14/2024 10:24 PM STATE INSPECTOR 05/14/2024 10:30 PM STATE INSPECTOR us Marguerite Ponce PA-C LAB - BLOOD ORDERABLES Final R esult Performing Organization Address City/[facility]/ZIP Co de Phone Number [address] [place] [address], [facility] * Basic metabolic panel (05/14/2024 10:24 PM STATE INSPECTOR) Sodium 136 135 - 145 mmol/L 05/14/2024 10:53 PM [facility] Potassium 4.4 3.4 - 5.3 mmol/L 05/14/2024 10:53 PM [facility] Chloride 104 98 - 107 mmol/L 05/14/2024 10:53 PM [facility] Carbon Dioxide (CO2) 22 22 - 29 mmol/L 05/14/2024 10:53 PM [facility] Anion Gap 10 7 - 15 mmol/L 05/14/2024 10:53 PM [facility] Urea Nitrogen 10.5 6.0 - 20.0 mg/dL 05/14/2024 10:53 PM [facility] Creatinine 0.78 0.51 - 0.95 mg/dL 05/14/2024 10:53 PM [facility] GFR Estimate >90 >60 mL/min/1.7 3m2 05/14/2024 10:53 PM [facility] Comment:eGFR calculated usin 2020 CKD-EPI equation. Calcium 9.0 8.8 - 10.4 mg/dL 05/14/2024 10:53 PM [facility] Comment:Reference intervals for this test were updated on 11/09/2023 to reflect our healthy population more accurately. There may be differences in the flagging of prior results with similar values performed with this method. Those prior results can be interpreted in the context of the updated reference intervals. Glucose 88 70 - 99 mg/dL 05/14/2024 10:53 PM [facility] Blood BLOOD SPECIMEN / Unknown Venipuncture / Unknown 05/14/2024 10:24 PM STATE INSPECTOR 05/14/2024 10:30 PM [facility] us Marguerite Ponce PA-C LAB - BLOOD ORDERABLES Final R esult [facility] [address] [place] [address], [facility] * ECG 12-LEAD WITH MUSE (LHE) (05/14/2024 10:12 PM [facility]) Systolic Blood Pressure mmHg RADIOLOGY RESULTS Diastolic Blood Pressure mmHg RADIOLOGY RESULTS Ventricular Rate 97 BPM RAD IOLOGY RESULTS Atrial Rate 97 BPM RADIOLOG Y RESULTS FL Interval 142 ms RADIOLOG Y RESULTS QRS Duration 80 ms RADIOLO GY RESULTS QT 346 ms RADIOLOGY RESULTS QTc 439 ms RADIOLOGY RESULTS P [place] 19 degrees RADIOLOGY RESULTS R AXIS 81 degrees RADIOLOGY RESULTS T [place] 58 degrees RADIOLOGY RESULTS Interpretation ECG Sinus rhythm Nonspecific T wave abnormality Abnormal ECG When compared with ECG of 13-May-2024 15:38, No significant change was found Confirmed by SEE ED PROVIDER NOTE FOR, ECG INTERPRETATION (4000), editor producer SELMA GARRISON ([id number]) on 05/14/2024 11:09:33 PM RADIOLOGY RESULTS 05/14/2024 10:1 2 PM STATE INSPECTOR 05/14/2024 11:09 PM STATE INSPECTOR us Marguerite Ponce PA-C ECG ORDERABLES Edited [...] For 1 dose $Given 05/14/2024 10:45 PM STATE INSPECTOR 25 mg HYDROmorphone (DILAUDID) injection 2 mg 2 mg, Intravenous, ONCE, On 05/14/24 at 2200, For 1 dose $Given 05/14/2024 10:29 PM STATE INSPECTOR 2 mg HYDROmorphone (DILAUDID) injection 2 mg 2 mg, Intravenous, ONCE, On 05/14/24 at 2330, For 1 dose $Given 05/14/2024 11:27 PM STATE INSPECTOR 2 mg lactated ringers BOLUS 1,000 mL Intravenous, 1,000 mL, ONCE, On 05/14/24 at 2200, For 1 dose $New Bag 05/14/2024 10:29 PM STATE INSPECTOR 1,000 mLs documented in this encounter Active and Recently Administered Medications Times are shown in STATE INSPECTOR. Scheduled Medication Order 05/13/2024 05/14/2024 05/15/2024 diphenhydrAMINE [...] RN) documented in this encounter Care Teams Automotive Quality Manager Relationship Specialty Start Date End Date No Ref-Primary, Physician PCP - General 03/15/24 06/17/24 Mor Ramsey Medical Student 04/03/24 documented as of this encounter
--- OUTSIDE RECORDS SUMMARY | 2024-06-22 01:11 | XMS_ITS | Encounter Summary ---
Author Organization [facility] Address [address] [place] [id number] Care Team Providers Care Engineering Instructor Name Role Phone No Ref-Primary, Physician Primary Care Provider Mor Ramsey Unavailable Unavailable Reason for Visit * Reason Comments Sickle Cell Pain Crisis Encounter Details Date Type Department Care Team ([facility] st Contact Info) Description 05/16/2024 9:41 PM DIRECT SUPPORT PROFESSIONAL CAREGIVER - 05/17/2024 12:53 AM [facility] Emergency [facility] Emergency Room [facility] [place] [address] Guille Davis, DO [address] [place] [id number] Sickle cell pain crisis (H) Discharge [...] on file Legal Sex Female 8:25 AM DIRECT SUPPORT PROFESSIONAL CAREGIVER Gender Identity Not on file Sexual Orientation Not on file documented as of this encounter Last Filed Vital Signs Vital Sign Reading Time Taken Comments Blood Pressure 107/62 05/17/2024 12:00 AM DIRECT SUPPORT PROFESSIONAL CAREGIVER Pulse 93 05/17/2024 12:00 AM DIRECT SUPPORT PROFESSIONAL CAREGIVER Temperature 36.8 C (98.3 F) 05/16/2024 9:35 PM DIRECT SUPPORT PROFESSIONAL CAREGIVER Respiratory Rate 15 05/17/2024 12:00 AM DIRECT SUPPORT PROFESSIONAL CAREGIVER Oxygen Saturation 94% 05/17/2024 12:00 AM DIRECT SUPPORT PROFESSIONAL CAREGIVER Inhaled Oxygen Concentration - - Weight 52.2 kg (115 lb) 05/16/2024 9:35 PM DIRECT SUPPORT PROFESSIONAL CAREGIVER Height 154.9 cm (5' 1) 05/16/2024 9:35 PM DIRECT SUPPORT PROFESSIONAL CAREGIVER Body Mass Index 21.73 05/16/2024 9:35 PM DIRECT SUPPORT PROFESSIONAL CAREGIVER documented in this encounter Discharge Instructions * Attachments The following attachments cannot be sent through Care Everywhere. * Sickle Cell Crisis (Maori) documented in this encounter Medications at Time [...] being printed. States she doesn't need them. CT SUPPORT PROFESSIONAL CAREGIVER * Obie Schofield RN - 05/17/2024 12:16 AM CST Pt says she'll be good for discharge after this 3rd dose of Dilaudid. Provider notified. Pt is vitally stable and pain under control and ok with the plan of care. All questions were answered. CT SUPPORT PROFESSIONAL CAREGIVER * Obie Schofield RN - 05/16/2024 11:40 PM CST Pt received 2nd dose of Dilaudid. Pt says the 1st dose has helped with her pain, bringing it down to 7/10 from 9/10. She has relief from itchiness following Benadryl as well. Pt is resting in bed, onher phone, and denies other needs at this time. On continuous pulse ox. CT SUPPORT PROFESSIONAL CAREGIVER * Guille Davis DO - 05/16/2024 9:53 [...] with other provider:Did you involve another provider (life skills consultant, , pharmacy, etc.)?: No Discharge. No [...] Currently Drug use: Never Social History Narrative [id number] mom. Recently moved to [place] from [place], [place]. She is 1 of 9 [...] Social Connections: Socially Integrated (03/28/2024) Received from [facility] Social Connections Do you often feel lonely [...] the Xpert Xpress CoV2/Flu/RSV Assay on the [employer] GeneXpert Instrument. This test should be ordered [...] management. This test was validated by the [facility]. These laboratories are certified under the Clinical Laboratory Improvement Amendments of 1988 (CLIA-88) as qualified to perfom high complexity laboratory testing. CBC with platelets + differential Narrative The following orders were created for panel order CBC with platelets + differential. Procedure Abnormality Status --------- ------ CBC with platelets and d...[[id number]] Abnormal Final result RBC and Platelet Morphology[[id number]] Abnormal Final result Please view results for [...] on file Guille Davis D.O. Emergency Medicine [facility] EMERGENCY ROOM [facility] [address] Dept: [phone] Guille Davis DO 05/17/[address] SUPPORT PROFESSIONAL CAREGIVER * Aminata Farley RN - 05/16/2024 9:37 [...] 5-->(V5) oriented Lester Coma Scale Score 15 CT SUPPORT PROFESSIONAL CAREGIVER documented in this encounter Plan of Treatment Not on file documented as of this encounter Goals Goal Patient Goal Type Associated Problems Recent Progress Patient-Stated? Author Pain Management General On track( 025 12:40 PM DIRECT SUPPORT PROFESSIONAL CAREGIVER) Yes Juhi Benson, RN Note: Goal Statement: [...] AND PLATELET MORPHOLOGY STAT 05/16/2024 10:17 PM DIRECT SUPPORT PROFESSIONAL CAREGIVER CBC WITH PLATELETS AND DIFFERENTIAL STAT 05/16/2024 10:17 PM DIRECT SUPPORT PROFESSIONAL CAREGIVER CBC WITH PLATELETS & DIFFERENTIAL STAT 05/16/2024 10:17 PM DIRECT SUPPORT PROFESSIONAL CAREGIVER BASIC METABOLIC PANEL STAT 05/16/2024 10:17 PM DIRECT SUPPORT PROFESSIONAL CAREGIVER INFLUENZA A/B, RSV AND SARS-COV2 PCR STAT 05/16/2024 10:00 PM DIRECT SUPPORT PROFESSIONAL CAREGIVER documented in this encounter Results * (ABNORMAL) RBC and Platelet Morphology (05/16/2024 10:17 PM DIRECT SUPPORT PROFESSIONAL CAREGIVER) Pathologist [facility] RBC Morphology Confirmed RBC Indices 05/16/2024 10:54 PM DIRECT SUPPORT PROFESSIONAL CAREGIVER [facility] Platelet Assessment Automated Count Confirmed. Platelet morphology is normal. Automated Count Confirmed. Platelet morphology is normal. JARET 05/16/2024 10:54 PM DIRECT SUPPORT PROFESSIONAL CAREGIVER [facility] Polychromasia Slight(A) None Seen JARET 05/16/2024 10:54 PM DIRECT SUPPORT PROFESSIONAL CAREGIVER [facility] Reactive Lymphocytes Present(A) None Seen JARET 05/16/2024 10:54 PM [facility] Sickle Cells Moderate(A) None Seen JARET 05/16/2024 10:54 PM DIRECT SUPPORT PROFESSIONAL CAREGIVER [facility] Target Cells Slight(A) None Seen JARET 05/16/2024 10:54 PM [facility] Blood BLOOD SPECIMEN / Unknown Venipuncture / Unknown 05/16/2024 10:17 PM DIRECT SUPPORT PROFESSIONAL CAREGIVER 05/16/2024 10:24 PM DIRECT SUPPORT PROFESSIONAL CAREGIVER Guille Davis DO LAB - BLOOD ORDERABLES Fin al Result [facility] [address] [place] [address], [facility] * (ABNORMAL) CBC with platelets and differential (05/16/2024 10:17 PM DIRECT SUPPORT PROFESSIONAL CAREGIVER) WBC Count 14.0(H) 4.0 - 11.0 10e3/uL 05/16/2024 10:50 PM [facility] RBC Count 2.40(L) 3.80 - 5.20 10e6/uL 05/16/2024 10:50 PM [facility] Hemoglobin 7.7(L) 11.7 - 15.7 g/dL 05/16/2024 10:50 PM [facility] Hematocrit 21.8(L) 35.0 - 47.0 % 05/16/2024 10:50 PM [facility] MCV 91 78 - 100 fL 05/16/2024 10:50 PM [facility] MCH 32.1 26.5 - 33.0 pg 05/16/2024 10:50 PM [facility] MCHC 35.3 31.5 - 36.5 g/dL 05/16/2024 10:50 PM [facility] RDW 22.4(H) 10.0 - 15.0 % 05/16/2024 10:50 PM [facility] Platelet Count 521(H) 150 - 450 10e3/uL 05/16/2024 10:50 PM [facility] % Neutrophils 55 % 05/16/2024 10:50 PM [facility] % Lymphocytes 25 % 05/16/2024 10:50 PM [facility] % Monocytes 16 % 05/16/2024 10:50 PM [facility] % Eosinophils 1 % 05/16/2024 10:50 PM [facility] % Basophils 1 % 05/16/2024 10:50 PM [facility] % Immature Granulocytes 1 % 05/16/2024 10:50 PM [facility] NRBCs per 100 WBC 2(H) <1 /100 025 10:50 PM [facility] Absolute Neutrophils 7.7 1.6 - 8.3 10e3/uL 05/16/2024 10:50 PM [facility] Absolute Lymphocytes 3.6 0.8 - 5.3 10e3/uL 05/16/2024 10:50 PM [facility] Absolute Monocytes 2.3(H) 0.0 - 1.3 10e3/uL 05/16/2024 10:50 PM [facility] Absolute Eosinophils 0.2 0.0 - 0.7 10e3/uL 05/16/2024 10:50 PM [facility] Absolute Basophils 0.1 0.0 - 0.2 10e3/uL 05/16/2024 10:50 PM [facility] Absolute Immature Granulocytes 0.1 <=0.4 10e3/uL 05/16/2024 10:50 PM [facility] Absolute NRBCs 0.3 10e3/uL 05/16/2024 10:50 PM [facility] Blood BLOOD SPECIMEN / Unknown Venipuncture / Unknown 05/16/2024 10:17 PM DIRECT SUPPORT PROFESSIONAL CAREGIVER 05/16/2024 10:24 PM DIRECT SUPPORT PROFESSIONAL CAREGIVER us Guille Davis DO LAB - BLOOD ORDERABLES Fin al Result [facility] [address] [place] [address], [place] * (ABNORMAL) Basic metabolic panel (05/16/2024 10:17 PM DIRECT SUPPORT PROFESSIONAL CAREGIVER) [facility] Sodium 138 135 - 145 mmol/L 05/16/2024 10:42 PM [facility] Potassium 4.3 3.4 - 5.3 mmol/L 05/16/2024 10:42 PM [facility] Chloride 105 98 - 107 mmol/L 05/16/2024 10:42 PM [facility] Carbon Dioxide (CO2) 22 22 - 29 mmol/L 05/16/2024 10:42 PM [facility] Anion Gap 11 7 - 15 mmol/L 05/16/2024 10:42 PM [facility] Urea Nitrogen 12.0 6.0 - 20.0 mg/dL 05/16/2024 10:42 PM [facility] Creatinine 0.80 0.51 - 0.95 mg/dL 05/16/2024 10:42 PM [facility] GFR Estimate >90 >60 mL/min/1.7 3m2 05/16/2024 10:42 PM [facility] Comment:eGFR calculated usin 2020 CKD-EPI equation. Calcium 8.7(L) 8.8 - 10.4 mg/dL 05/16/2024 10:42 PM [facility] Comment:Reference intervals for this test were updated on 11/09/2023 to reflect our healthy population more accurately. There may be differences in the flagging of prior results with similar values performed with this method. Those prior results can be interpreted in the context of the updated reference intervals. Glucose 118(H) 70 - 99 mg/dL 05/16/2024 10:42 PM [facility] Blood BLOOD SPECIMEN / Unknown Venipuncture / Unknown 05/16/2024 10:17 PM DIRECT SUPPORT PROFESSIONAL CAREGIVER 05/16/2024 10:24 PM [facility] us Guille Davis DO LAB - BLOOD ORDERABLES Fin al Result [facility] [address] [place] [address], [facility] * Influenza A/B, RSV and SARS-CoV2 PCR (COVID-19) Nasopharyngeal (05/16/2024 10:00 PM DIRECT SUPPORT PROFESSIONAL CAREGIVER) Influenza A PCR Negative Negative 05/16/2024 10:46 PM [facility] Influenza B PCR Negative Negative 05/16/2024 10:46 PM DIRECT SUPPORT PROFESSIONAL CAREGIVER [facility] RSV PCR Negative Negative 05/16/2024 10:46 PM DIRECT SUPPORT PROFESSIONAL CAREGIVER [facility] SARS CoV2 PCR Negative Negative 05/16/2024 10:46 PM DIRECT SUPPORT PROFESSIONAL CAREGIVER [facility] Comment:NEGATIVE: SARS-CoV-2 (COVID-19) RNA not detected, presumed negative. Swab NASOPHARYNGEAL STRUCTURE / Unknown Non-blood Collection / Unknown 05/16/2024 10:00 PM DIRECT SUPPORT PROFESSIONAL CAREGIVER 05/16/2024 10:02 PM DIRECT SUPPORT PROFESSIONAL CAREGIVER [facility] - 05/16/2024 10:46 PM DIRECT SUPPORT PROFESSIONAL CAREGIVER Testing was performed using the Xpert Xpress CoV2/Flu/RSV Assay on the 8bitXpert Instrument. This test should be ordered for [...] management. This test was validated by the [facility]. These laboratories are certified under the Clinical Laboratory Improvement Amendments of 1988 (CLIA-88) as qualified to perfom high complexity laboratory testing. Guille Davis DO LAB - MICRO GENERAL ORDERA BLES Final Result [facility] [address] [place] [address], [facility] documented in this encounter Visit Diagnoses Diagnosis 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 documented in this encounter Administered Medications Inactive Administered Medications - up to 3 most recent administrations Medication Order MAR Action Action Date Dose Rate Site diphenhydrAMINE (BENADRYL) injection 50 mg 50 mg, Intravenous, ONCE, On Wed05/16/24 at 2200, For 1 dose $Given 05/16/2024 10:37 PM DIRECT SUPPORT PROFESSIONAL CAREGIVER 50 mg HYDROmorphone (DILAUDID) injection 1 mg 1 mg, Intravenous, ONCE, On Wed05/16/24 at 2200, For 1 dose $Given 05/16/2024 10:37 PM DIRECT SUPPORT PROFESSIONAL CAREGIVER 1 mg HYDROmorphone (DILAUDID) injection 1 mg 1 mg, Intravenous, ONCE, On Wed05/17/24 at 0000, For 1 dose $Given 05/16/2024 11:37 PM DIRECT SUPPORT PROFESSIONAL CAREGIVER 1 mg HYDROmorphone (DILAUDID) injection 1 mg 1 mg, Intravenous, ONCE, On Wed05/17/24 at 0030, For 1 dose $Given 05/17/2024 12:13 AM DIRECT SUPPORT PROFESSIONAL CAREGIVER 1 mg documented in this encounter Active and Recently Administered Medications Times are shown in DIRECT SUPPORT PROFESSIONAL CAREGIVER. Scheduled Medication Order 05/15/2024 05/16/2024 05/17/2024 diphenhydrAMINE (BENADRYL) injection 50 mg (COMPLETED) 50 mg, Intravenous, ONCE, On Wed05/16/24 at 2200, For 1 dose 2237 ($Given - Provider: Jennifer Scherer RN) HYDROmorphone (DILAUDID) injection 1 mg (COMPLETED) 1 mg, Intravenous, ONCE, On Wed05/16/24 at 2200, For 1 dose 2237 ($Given - Provider: Jennifer Scheerr RN) HYDROmorphone (DILAUDID) injection 1 mg (COMPLETED) [...] Out COVID-19 05/16/2024 05/16/2024 05/16/2024 10:46 PM DIRECT SUPPORT PROFESSIONAL CAREGIVER documented as of this encounter Care Teams Engineering Instructor Relationship Specialty Start Date End Date No Ref-Primary, Physician PCP - General 03/15/24 06/17/24 Mor Ramsey Medical Student 04/03/24 documented as of this encounter
--- OUTSIDE RECORDS SUMMARY | 2024-06-22 01:11 | XMS_ITS | Encounter Summary ---
Author Organization [place] Address [address] [place] [id number] Care Team Providers Care Ambulatory Service Representative Name Role Phone No Ref-Primary, Physician Primary Care Provider Mor Ramsey Unavailable Unavailable Case Samuel MD Unavailable [phone] Reason for Visit * Reason Comments Sickle Cell Pain Crisis Chest Pain Encounter Details Date Type Department Care Team (Late st Contact Info) Description 05/20/2024 7:30 AM METAL STUD FRAMER - 05/20/2024 11:15 AM [facility] Emergency [facility] Emergency Room [address] [place] [address] Stiven Madsen MD [facility] [address], [place] [id number] Sickle cell pain crisis (H) Discharge Disposition: [...] on file Legal Sex Female 8:25 AM METAL STUD FRAMER Gender Identity Not on file Sexual Orientation Not on file documented as of this encounter Last Filed Vital Signs Vital Sign Reading Time Taken Comments Blood Pressure 115/59 05/20/2024 11:00 AM METAL STUD FRAMER Pulse 76 05/20/2024 11:00 AM METAL STUD FRAMER Temperature 37.3 C (99.2 F) 05/20/2024 7:33 AM METAL STUD FRAMER Respiratory Rate 20 05/20/2024 11:00 AM METAL STUD FRAMER Oxygen Saturation 100% 05/20/2024 11:00 AM METAL STUD FRAMER Inhaled Oxygen Concentration - - Weight 50.8 kg (112 lb) 05/20/2024 7:33 AM METAL STUD FRAMER Height 154.9 cm (5' 1) 05/20/2024 7:33 AM METAL STUD FRAMER Body Mass Index 21.16 05/20/2024 7:33 AM METAL STUD FRAMER documented in this encounter Discharge Instructions * Discharge Instructions* Stiven Madsen MD - 05/20/2024 11:08 AM METAL STUD FRAMER Please continue working with your luncheonette operator after this and recent hospital visits. Try to make sure that you are drinking plenty of liquids to keep yourself hydrated. Continue to take your usual pain medications. If you have other concerns specifically productive cough, severe chest pain, shortness of breath, or other immediate concern we should reevaluate in the emergency department. L STUD FRAMER documented in this encounter Medications at Time [...] in 10 minutes. Message sent to provider. L STUD FRAMER * Suzanne Cadet RN - 05/20/2024 10:00 AM CST Pt requesting additional medication for pain. Also requesting medication for itching. Message sent to provider. Medicated per provider order. L STUD FRAMER * Yanna Huerta RN - 05/20/2024 8:43 AM CST IV infiltrated and removed, LES RN coming to try for IV L STUD FRAMER * Yanna Huerta RN - 05/20/2024 8:10 AM CST Introduced self to patient. Whiteboard updated. Plan of care and length of time discussed with patient. Will continue to monitor. Yanna Huerta RN.......05/20/2024 8:37 AM L STUD FRAMER * Stiven Madsen MD - 05/20/2024 7:31 [...] cell disease. Radial instantly establishing care in [place] and with several ED visits across the [...] with other provider:Did you involve another provider (system sales consultant, MH, pharmacy, etc.)?: No Discharge. 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 Recently moved to [place] from [place], [place]. She is 1 of 9 [...] Social Connections: Socially Integrated (03/28/2024) Received from [facility] Social Connections Do you often feel [...] wave abnormality. Rate: 86 Rhythm: Sinus rhythm [place]: 18 55 25 [place] Interval: 154 QRS Interval: 78 QTc Interval: [...] my direction. Stiven Madsen M.D. Emergency Medicine [facility] EMERGENCY ROOM [address] [place] [id number] Dept: [phone] Stiven Madsen MD 05/20/24 1351 L STUD FRAMER * Stefani Huizar RN - 05/20/2024 7:27 AM CST Pt c/o pain all over body, hx sickle cell and feels like flare up started 2 days ago. Pt also c/o left sided chest pain, pain with taking a deep breath. Pt was seen here yesterday as well for same states did not have chest pain then L STUD FRAMER L STUD FRAMER documented in this encounter Plan of Treatment Not on file documented as of this encounter Goals Goal Patient Goal Type Associated Problems Recent Progress Patient-Stated? Author Pain Management General On track( 025 12:40 PM METAL STUD FRAMER) Yes Juhi Benson, RN Note: Goal Statement: [...] CHEST 2 VIEWS STAT 05/20/2024 9:30 AM METAL STUD FRAMER EXTRA TUBE STAT 05/20/2024 9:09 AM METAL STUD FRAMER EXTRA GREEN TOP (LITHIUM HEPARIN) TUBE STAT 05/20/2024 9:09 AM METAL STUD FRAMER RBC AND PLATELET MORPHOLOGY STAT 05/20/2024 9:09 AM METAL STUD FRAMER CBC WITH PLATELETS AND DIFFERENTIAL STAT 05/20/2024 9:09 AM METAL STUD FRAMER CBC WITH PLATELETS & DIFFERENTIAL STAT 05/20/2024 9:09 AM METAL STUD FRAMER RETICULOCYTE COUNT STAT 05/20/2024 9: 09 AM METAL STUD FRAMER BASIC METABOLIC PANEL STAT 05/20/2024 9:09 AM METAL STUD FRAMER BASIC METABOLIC PANEL STAT 05/20/2024 8:21 AM METAL STUD FRAMER ECG 12-LEAD WITH MUSE [facility] STAT 05/20/2024 7:36 AM METAL STUD FRAMER documented in this encounter Results * Chest XR, PA & LAT (05/20/2024 9:30 AM METAL STUD FRAMER) Anatomical Region Laterality Modality Chest Digital Radiogra phy 05/20/2024 9:30 AM METAL STUD FRAMER Impressions 05/20/2024 9:38 AM METAL STUD FRAMER IMPRESSION: Slightly increased bilateral mid to lower lung patchy opacities which may reflect atelectatic changes or pneumonic infiltrates. No pleural effusion. Normal heart size. Multiple H-shaped thoracic vertebra consistent with the history of sickle cell disease. Narrative 05/20/2024 9:38 AM METAL STUD FRAMER EXAM: XR CHEST 2 VIEWS LOCATION: [facility] DATE: 05/20/2024 INDICATION: Chest pain, sickle cell patient COMPARISON: Chest x-ray 05/08/2024 Procedure Note Twin Marin MD - 05/20/2024 EXAM: XR CHEST 2 VIEWS LOCATION: [facility] DATE: 05/20/2024 INDICATION: Chest pain, sickle cell [...] RBC and Platelet Morphology (05/20/2024 9:09 AM METAL STUD FRAMER) Pathologist [facility] RBC Morphology Confirmed RBC Indices 05/20/2024 9:47 AM METAL STUD FRAMER [facility] Platelet Assessment Automated Count Confirmed. Platelet morphology is normal. Automated Count Confirmed. Platelet morphology is normal. JARET 05/20/2024 9:47 AM METAL STUD FRAMER [facility] Polychromasia Slight(A) None Seen JARET 05/20/2024 9:47 AM [facility] Reactive Lymphocytes Present(A) None Seen JARET 05/20/2024 9:47 AM [facility] Sickle Cells Moderate(A) None Seen JARET 05/20/2024 9:47 AM [facility] Target Cells Slight(A) None Seen JARET 05/20/2024 9:47 AM [facility] Blood VENOUS LINE / Unknown Venipuncture / Unknown 05/20/2024 9:09 AM METAL STUD FRAMER 05/20/2024 9:14 AM [facility] us Stiven Madsen MD LAB - BLOOD ORDERABLES Final Result [facility] [address] [place] [address], [facility] * (ABNORMAL) Basic metabolic panel (05/20/2024 9:09 AM [facility]) Sodium 137 135 - 145 mmol/L 05/20/2024 9:42 AM [facility] Potassium 4.8 3.4 - 5.3 mmol/L 05/20/2024 9:42 AM [facility] Chloride 105 98 - 107 mmol/L 05/20/2024 9:42 AM [facility] Carbon Dioxide (CO2) 22 22 - 29 mmol/L 05/20/2024 9:42 AM [facility] Anion Gap 10 7 - 15 mmol/L 05/20/2024 9:42 AM [facility] Urea Nitrogen 7.4 6.0 - 20.0 mg/dL 05/20/2024 9:42 AM [facility] Creatinine 0.82 0.51 - 0.95 mg/dL 05/20/2024 9:42 AM [facility] GFR Estimate >90 >60 mL/min/1.7 3m2 05/20/2024 9:42 AM [facility] Comment:eGFR calculated usin 2020 CKD-EPI equation. Calcium 9.3 8.8 - 10.4 mg/dL 05/20/2024 9:42 AM [facility] Comment:Reference intervals for this test were updated on 11/09/2023 to reflect our healthy population more accurately. There may be differences in the flagging of prior results with similar values performed with this method. Those prior results can be interpreted in the context of the updated reference intervals. Glucose 107(H) 70 - 99 mg/dL 05/20/2024 9:42 AM [facility] Blood VENOUS LINE / Unknown Venipuncture / Unknown 05/20/2024 9:09 AM METAL STUD FRAMER 05/20/2024 9:14 AM METAL STUD FRAMER Stiven Madsen MD LAB - BLOOD ORDERABLES Final Result Performing Organization Address City/[facility]/ZIP Co de Phone Number [facility] [address] [place] [address] [place] [address], [facility] * Extra Green Top ([place]ney Heparin) Tube (05/20/2024 9:09 AM METAL STUD FRAMER) Pathologist [facility] Hold Specimen JI 05/20/2024 10:16 AM [facility] Blood VENOUS LINE / Unknown Venipuncture / Unknown 05/20/2024 9:09 AM METAL STUD FRAMER 05/20/2024 9:14 AM METAL STUD FRAMER Deshawn Arredondo MD LAB - BLOOD ORDERABLES Ilss l Result Performing Organization Address [facility] Co de Phone Number [facility] [address] [place] [address] * (ABNORMAL) CBC with platelets and differential (05/20/2024 9:09 AM METAL STUD FRAMER) WBC Count 16.0(H) 4.0 - 11.0 10e3/uL 05/20/2024 9:47 AM [facility] RBC Count 2.57(L) 3.80 - 5.20 10e6/uL 05/20/2024 9:47 AM [facility] Hemoglobin 8.4(L) 11.7 - 15.7 g/dL 05/20/2024 9:47 AM [facility] Hematocrit 23.7(L) 35.0 - 47.0 % 05/20/2024 9:47 AM [facility] MCV 92 78 - 100 fL 05/20/2024 9:47 AM [facility] MCH 32.7 26.5 - 33.0 pg 05/20/2024 9:47 AM [facility] MCHC 35.4 31.5 - 36.5 g/dL 05/20/2024 9:47 AM [facility] RDW 22.8(H) 10.0 - 15.0 % 05/20/2024 9:47 AM [facility] Platelet Count 541(H) 150 - 450 10e3/uL 05/20/2024 9:47 AM [facility] % Neutrophils 59 % 05/20/2024 9:47 AM [facility] % Lymphocytes 23 % 05/20/2024 9:47 AM [facility] % Monocytes 15 % 05/20/2024 9:47 AM [facility] % Eosinophils 2 % 05/20/2024 9:47 AM [facility] % Basophils 1 % 05/20/2024 9:47 AM [facility] % Immature Granulocytes 1 % 05/20/2024 9:47 AM [facility] NRBCs per 100 WBC 2(H) <1 /100 025 9:47 AM [facility] Absolute Neutrophils 9.4(H) 1.6 - 8.3 10e3/uL 05/20/2024 9:47 AM [facility] Absolute Lymphocytes 3.6 0.8 - 5.3 10e3/uL 05/20/2024 9:47 AM [facility] Absolute Monocytes 2.4(H) 0.0 - 1.3 10e3/uL 05/20/2024 9:47 AM [facility] Absolute Eosinophils 0.3 0.0 - 0.7 10e3/uL 05/20/2024 9:47 AM [facility] Absolute Basophils 0.2 0.0 - 0.2 10e3/uL 05/20/2024 9:47 AM [facility] Absolute Immature Granulocytes 0.2 <=0.4 10e3/uL 05/20/2024 9:47 AM [facility] Absolute NRBCs 0.2 10e3/uL 05/20/2024 9:47 AM [facility] Blood VENOUS LINE / Unknown Venipuncture / Unknown 05/20/2024 9:09 AM [facility] 05/20/2024 9:14 AM METAL STUD FRAMER Stiven Madsen MD LAB - BLOOD ORDERABLES Final Result Performing Organization Address [facility] de Phone Number [facility] [address] [place] [address] Y[address] * (ABNORMAL) Reticulocyte count (05/20/2024 9:09 AM METAL STUD FRAMER) % Reticulocyte 25.1(H) 0.5 - 2.0 % 05/20/2024 9:19 AM [facility] Absolute Reticulocyte 0.646(H) 0.025 - 0.095 10e6/uL 05/20/2024 9:19 AM [facility] Blood VENOUS LINE / Unknown Venipuncture / Unknown 05/20/2024 9:09 AM METAL STUD FRAMER 05/20/2024 9:14 AM METAL STUD FRAMER Stiven Madsen MD LAB - BLOOD ORDERABLES Final Result Performing Organization Address [facility] de Phone Number [address] [place] [address], [facility] * (ABNORMAL) Basic metabolic panel (05/20/2024 8:21 AM [facility]) Pathologist [facility] Sodium 136 135 - 145 mmol/L 05/20/2024 8:47 AM [facility] Potassium 5.1 3.4 - 5.3 mmol/L 05/20/2024 8:47 AM [facility] Chloride 105 98 - 107 mmol/L 05/20/2024 8:47 AM [facility] Carbon Dioxide (CO2) 21(L) 22 - 29 mmol/L 05/20/2024 8:47 AM [facility] Anion Gap 10 7 - 15 mmol/L 05/20/2024 8:47 AM [facility] Urea Nitrogen 7.5 6.0 - 20.0 mg/dL 05/20/2024 8:47 AM [facility] Creatinine 0.84 0.51 - 0.95 mg/dL 05/20/2024 8:47 AM [facility] GFR Estimate >90 >60 mL/min/1.7 3m2 05/20/2024 8:47 AM [facility] Comment:eGFR calculated us2020 CKD-EPI equation. Calcium 9.1 8.8 - 10.4 mg/dL 05/20/2024 8:47 AM [facility] Comment:Reference intervals for this test were updated on 11/09/2023 to reflect our healthy population more accurately. There may be differences in the flagging of prior results with similar values performed with this method. Those prior results can be interpreted in the context of the updated reference intervals. Glucose 95 70 - 99 mg/dL 05/20/2024 8:47 AM METAL STUD FRAMER [facility] Blood VENOUS LINE / Unknown Venipuncture / Unknown 05/20/2024 8:21 AM METAL STUD FRAMER 05/20/2024 8:31 AM METAL STUD FRAMER us Stiven Madsen MD LAB - BLOOD ORDERABLES Final Result Performing Organization Address [facility]/ZIP Co de Phone Number [facility] [address] [place] [address], [facility] * ECG 12-LEAD WITH MUSE (LHE) (05/20/2024 7:36 AM METAL STUD FRAMER) Systolic Blood Pressure 111 mmHg RADIOLOGY RESULTS Diastolic Blood Pressure 56 mmHg RADIOLOGY RESULTS Ventricular Rate 86 BPM RAD IOLOGY RESULTS Atrial Rate 86 BPM RADIOLOG Y RESULTS MI Interval 154 ms RADIOLOG Y RESULTS QRS Duration 78 ms RADIOLO GY RESULTS QT 370 ms RADIOLOGY RESULTS QTc 442 ms RADIOLOGY RESULTS P [place] 18 degrees RADIOLOGY RESULTS R AXIS 55 degrees RADIOLOGY RESULTS T [place] 25 degrees RADIOLOGY RESULTS Interpretation ECG Sinus rhythm Nonspecific T wave abnormality Abnormal ECG When compared with ECG of 14-May-2024 22:12, Nonspecific T wave abnormality now evident in Inferior leads Confirmed by SEE ED PROVIDER NOTE FOR, ECG INTERPRETATION ([id number]), medical transcription editor Neeraj Allison ([id number]) on 05/20/2024 7:48:17 AM RADIOLOGY RESULTS 05/20/2024 7:36 AM METAL STUD FRAMER 05/20/2024 7:48 AM METAL STUD FRAMER us Deshawn Arredondo MD ECG ORDERABLES Edited [...] For 1 dose $Given 05/20/2024 9:59 AM METAL STUD FRAMER 25 mg HYDROmorphone (DILAUDID) injection 2 mg 2 mg, Intravenous, EVERY HOUR, First dose on 05/20/24 at 0800, For 3 doses $Given 05/20/2024 10:58 AM METAL STUD FRAMER 2 mg $Given 05/20/2024 9:56 AM METAL STUD FRAMER 2 mg $Given 05/20/2024 8:22 AM METAL STUD FRAMER 2 mg lactated ringers infusion at 500 mL/hr, Intravenous, CONTINUOUS, Starting on 05/20/24 at 0800, Until 05/20/24 at 0959 Restarted 05/20/2024 9:30 AM METAL STUD FRAMER 500 mL/hr $New Bag 05/20/2024 8:22 AM METAL STUD FRAMER 500 mL/hr ondansetron (ZOFRAN) injection 8 mg 8 mg, Intravenous, EVERY 6 HOURS PRN, nausea, vomiting, Administer over 2-5 Minutes, Starting on 05/20/24 at 0744 $Given 05/20/2024 8:22 AM METAL STUD FRAMER 8 mg documented in this encounter Active and Recently Administered Medications Times are shown in METAL STUD FRAMER. Scheduled Medication Order 05/18/2024 05/19/2024 05/20/2024 diphenhydrAMINE (BENADRYL) capsule 25 mg (COMPLETED) 25 mg, Oral, ONCE, On 05/20/24 at 1000, For 1 dose 0959 ($Given - Provi nas: Suzanne Cadet RN) HYDROmorphone (DILAUDID) injection 2 mg (COMPLETED) [...] RN) documented in this encounter Care Teams Ambulatory Service Representative Relationship Specialty Start Date End Date No Ref-Primary, Physician PCP - General 03/15/24 06/17/24 Mor Ramsey Medical Student 04/03/24 Case Samuel MD [address] [place] [address] 484, [address] [place] [address] Assigned Pediatric Specialist Provider 05/18/24 documented as of this encounter
--- OUTSIDE RECORDS SUMMARY | 2024-06-22 01:11 | XMS_ITS | Encounter Summary ---
Author Organization [place] Address [facility] [place] [address] Care Team Providers Care Occupational Health Nurse Name Role Phone No Ref-Primary, Physician [...] on file Legal Sex Female 8:25 AM TESTER [employer] Gender Identity Not on file Sexual Orientation Not on file documented as of this encounter Plan of Treatment Not on file documented as of this encounter Goals Goal Patient Goal Type Associated Problems Recent Progress Patient-Stated? Author Pain Management General On track( 025 12:40 PM TESTER [employer]) Yes Juhi Benson, RN Note: Goal Statement: [...] on filedocumented in this encounter Care Teams Occupational Health Nurse Relationship Specialty Start Date End Date No Ref-Primary, Physician PCP - General 03/15/24 06/17/24 Mor Ramsey Medical Student 04/03/24 documented as of this encounter
--- OUTSIDE RECORDS SUMMARY | 2024-06-22 01:11 | XMS_ITS | Encounter Summary ---
Author Organization [place] Address [address] [place] [address]. [place] [address] Care Team Providers Care Hand Clerical Verifier Name Role Phone No Ref-Primary, Physician Primary Care Provider Mor Ramsey Unavailable Unavailable Case Samuel MD Unavailable [phone] Encounter Details Date Type Department Care Team [...] on file Legal Sex Female 8:25 AM VENDING MANAGER Gender Identity Not on file Sexual Orientation Not on file documented as of this encounter Plan of Treatment Not on file documented as of this encounter Goals Goal Patient Goal Type Associated Problems Recent Progress Patient-Stated? Author Pain Management General On track( 025 12:40 PM VENDING MANAGER) Yes Juhi Benson, RN Note: Goal [...] on filedocumented in this encounter Care Teams Hand Clerical Verifier Relationship Specialty Start Date End Date No Ref-Primary, Physician PCP - General 03/15/24 06/17/24 Mor Ramsey Medical Student 04/03/24 Case Samuel MD [address] [place] [address], [address] [place] [address] Assigned Pediatric Specialist Provider 05/18/24 documented as of this encounter
--- OUTSIDE RECORDS SUMMARY | 2024-06-22 01:11 | XMS_ITS | Encounter Summary ---
Author Organization [facility] Address [address] [place] [address] Care Team Providers Care Micro Computer Data Processor Name Role Phone No Ref-Primary, Physician Primary Care Provider Mor Ramsey Unavailable Unavailable Reason for Visit * Reason Comments Sickle Cell Pain Crisis Encounter Details Date Type Department Care Team ([facility] st Contact Info) Description 05/13/2024 3:56 PM SMALL BUSINESS SALES REPRESENTATIVE - 05/13/2024 7:56 PM SMALL BUSINESS SALES REPRESENTATIVE Emergency [facility] Emergency Room [facility] [place] [address] Shaheen Unger MD [address] [place] [address] [id number] Sickle cell pain crisis (H) Discharge Disposition: [...] on file Legal Sex Female 8:25 AM SMALL BUSINESS SALES REPRESENTATIVE Gender Identity Not on file Sexual Orientation Not on file documented as of this encounter Last Filed Vital Signs Vital Sign Reading Time Taken Comments Blood Pressure 102/66 05/13/2024 7:45 PM SMALL BUSINESS SALES REPRESENTATIVE Pulse 83 05/13/2024 7:45 PM SMALL BUSINESS SALES REPRESENTATIVE Temperature 36.9 C (98.4 F) 05/13/2024 7:45 PM SMALL BUSINESS SALES REPRESENTATIVE Respiratory Rate 29 05/13/2024 7:45 PM SMALL BUSINESS SALES REPRESENTATIVE Oxygen Saturation 97% 05/13/2024 7:29 PM SMALL BUSINESS SALES REPRESENTATIVE Inhaled Oxygen Concentration - - Weight 53.3 kg (117 lb 6.4 oz) 05/13/2024 3:33 P M SMALL BUSINESS SALES REPRESENTATIVE Height 154.9 cm (5' 1) 05/13/2024 3:33 PM SMALL BUSINESS SALES REPRESENTATIVE Body Mass Index 22.18 05/13/2024 3:33 PM SMALL BUSINESS SALES REPRESENTATIVE documented in this encounter Discharge Instructions * Discharge Instructions* Shaheen Unger MD - 05/13/2024 7:45 PM SMALL BUSINESS SALES REPRESENTATIVE Your workup in the emergency department today was reassuring. I would continue with your prescription medications and contact your certified dietary manager determine if they would like to follow-up with you closely in clinic otherwise if you develop fevers, significantly worsening chest pain, new shortness of breath or other concerning symptom please return to the emergency department for repeat evaluation. L BUSINESS SALES REPRESENTATIVE * Attachments The following attachments cannot be sent through Care Everywhere. * Sickle Cell Crisis (Thai) documented in this encounter Medications at Time [...] with other provider:Did you involve another provider (review consultant, , pharmacy, etc.)?: No Discharge. No [...] was obtained from: the patient Use of Painter Supervisor: N/A Gianna Hernández is a 29 year [...] was on 05/08/2024 (5 days ago) at [facility] ED. Prescriptions for Augmentin and doxycycline sent to her listed [facility] pharmacy. 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 Recently moved to [place] from [place], [place]. She is 1 of 9 [...] Social Connections: Socially Integrated (03/28/2024) Received from [facility] Social Connections Do you often feel [...] Rate 102 BPM Atrial Rate 102 BPM DC Interval 144 ms QRS Duration 84 ms QT 322 ms QTc 419 ms P [place] 32 degrees R AXIS 59 degrees T [place] 37 degrees Interpretation ECG Sinus tachycardia Nonspecific T wave abnormality Abnormal ECG When compared with ECG of 08-May-2024 15:13, No significant change was found Confirmed by SEE ED PROVIDER NOTE FOR, ECG INTERPRETATION (4000), technical writer and editor Leticia Warner ([id number]) on 05/13/2024 4:13:45 PM RADIOLOGY: Reviewed all pertinent imaging. Please see official radiology report. No orders to display EKG: Performed at: Impression: EKG shows sinus tachycardia 102 beats a minute, normal axis, normal DC, QRS and QTc durations, no ST elevations, T wave inversions in V1 through V3 seen on prior EKGs, I have independently reviewed and interpreted the EKG(s) documented above. [facility] System Documentation: [facility] Diagnoses: I, Abraham Ashby, am serving as a scribe to document services personally performed by Shaheen Unger MDbased on my observation and the provider's statements to me. I, Shaheen Unger MD, attest that Regla is acting in a scribe capacity, has observed my performance of the services and has documentedthem in accordance with my direction. Shaheen Unger MD [facility] EMERGENCY ROOM [address] [facility] [address] Shaheen Unger MD 05/13/24 8076 L BUSINESS SALES REPRESENTATIVE * Jennifer Scherer RN - 05/13/2024 3:36 [...] ECG obtained Cognitive/Neuro/Behavioral WDL Cognitive/Neuro/Behavioral WDL WDL L BUSINESS SALES REPRESENTATIVE documented in this encounter Plan of Treatment Not on file documented as of this encounter Goals Goal Patient Goal Type Associated Problems Recent Progress Patient-Stated? Author Pain Management General On track( 025 12:40 PM SMALL BUSINESS SALES REPRESENTATIVE) Yes Juhi Benson, RN Note: Goal Statement: [...] Comments EXTRA TUBE STAT 05/13/2024 6:17 PM SMALL BUSINESS SALES REPRESENTATIVE EXTRA PURPLE TOP TUBE STAT 05/13/2024 6:17 PM SMALL BUSINESS SALES REPRESENTATIVE LACTATE DEHYDROGENASE STAT 05/13/2024 6:16 PM SMALL BUSINESS SALES REPRESENTATIVE MANUAL DIFFERENTIAL STAT 05/13/2024 4 :57 PM SMALL BUSINESS SALES REPRESENTATIVE CBC WITH PLATELETS AND DIFFERENTIAL STAT 05/13/2024 4:57 PM SMALL BUSINESS SALES REPRESENTATIVE TROPONIN T, HIGH SENSITIVITY STAT 05/13/2024 4:57 PM SMALL BUSINESS SALES REPRESENTATIVE CBC WITH PLATELETS & DIFFERENTIAL STAT 05/13/2024 4:57 PM SMALL BUSINESS SALES REPRESENTATIVE RETICULOCYTE COUNT STAT 05/13/2024 4: 57 PM SMALL BUSINESS SALES REPRESENTATIVE HEPATIC FUNCTION PANEL STAT 4:57 PM SMALL BUSINESS SALES REPRESENTATIVE BASIC METABOLIC PANEL STAT 05/13/2024 4:57 PM SMALL BUSINESS SALES REPRESENTATIVE ECG 12-LEAD WITH MUSE [facility] STAT 05/13/2024 3:38 PM SMALL BUSINESS SALES REPRESENTATIVE documented in this encounter Results * Extra Purple Top Tube (05/13/2024 6:17 PM SMALL BUSINESS SALES REPRESENTATIVE) Pathologist [facility] Hold Specimen JI 05/13/2024 7:31 PM SMALL BUSINESS SALES REPRESENTATIVE [facility] Blood STRUCTURE OF RIGHT UPPER LIMB / Unknown Venipuncture / Unknown 05/13/2024 6:17 PM SMALL BUSINESS SALES REPRESENTATIVE 05/13/2024 6:23 PM SMALL BUSINESS SALES REPRESENTATIVE us Shaheen Unger MD LAB - BLOOD ORDERABLES Final Res ult Performing Organization Address [facility] Co de Phone Number [facility] [address] [facility] [place] [address], [facility] * (ABNORMAL) Lactate Dehydrogenase (05/13/2024 6:16 PM SMALL BUSINESS SALES REPRESENTATIVE) [facility] Lactate Dehydrogenase 514(H) 0 - 250 U/L 05/13/2024 6:42 PM SMALL BUSINESS SALES REPRESENTATIVE [facility] Blood STRUCTURE OF RIGHT UPPER LIMB / Unknown Venipuncture / Unknown 05/13/2024 6:16 PM SMALL BUSINESS SALES REPRESENTATIVE 05/13/2024 6:23 PM SMALL BUSINESS SALES REPRESENTATIVE us Shaheen Unger MD LAB - BLOOD ORDERABLES Final Res ult Performing Organization Address City/[facility]/ZIP Co de Phone Number [facility] [address] [facility] [place] [address], [facility] * (ABNORMAL) Manual Differential (05/13/2024 4:57 PM SMALL BUSINESS SALES REPRESENTATIVE) % Neutrophils 63 % JARET 05/13/2024 5:54 PM [facility] % Lymphocytes 25 % JARET 05/13/2024 5:54 PM [facility] % Monocytes 11 % JARET 05/13/2024 5:54 PM [facility] % Eosinophils 1 % JARET 05/13/2024 5:54 PM [facility] % Basophils 0 % JARET 05/13/2024 5:54 PM [facility] Absolute Neutrophils 11.0(H) 1.6 - 8.3 10e3/uL JARET 05/13/2024 5:54 PM [facility] Absolute Lymphocytes 4.4 0.8 - 5.3 10e3/uL JARET 05/13/2024 5:54 PM [facility] Absolute Monocytes 1.9(H) 0.0 - 1.3 10e3/uL JARET 05/13/2024 5:54 PM [facility] Absolute Eosinophils 0.2 0.0 - 0.7 10e3/uL JARET 05/13/2024 5:54 PM [facility] Absolute Basophils 0.0 0.0 - 0.2 10e3/uL JARET 05/13/2024 5:54 PM [facility] RBC Morphology Confirmed RBC Indices JARET 05/13/2024 5:54 PM [facility] Platelet Assessment Automated Count Confirmed. Platelet morphology is normal. Automated Count Confirmed. Platelet morphology is normal. JARET 05/13/2024 5:54 PM [facility] Acanthocytes Slight(A) None Seen JARET 05/13/2024 5:54 PM [facility] Elliptocytes Slight(A) None Seen JARET 05/13/2024 5:54 PM [facility] Polychromasia Slight(A) None Seen JARET 05/13/2024 5:54 PM [facility] Sickle Cells Moderate(A) None Seen JARET 05/13/2024 5:54 PM [facility] Target Cells Slight(A) None Seen JARET 05/13/2024 5:54 PM [facility] Blood VENOUS LINE / Unknown Venipuncture / Unknown 05/13/2024 4:57 PM SMALL BUSINESS SALES REPRESENTATIVE 05/13/2024 5:09 PM SMALL BUSINESS SALES REPRESENTATIVE Shaheen Unger MD LAB - BLOOD ORDERABLES Final Res ult [facility] [address] [facility] [place] [address], [facility] * (ABNORMAL) CBC with platelets and differential (05/13/2024 4:57 PM SMALL BUSINESS SALES REPRESENTATIVE) [facility] WBC Count 17.4(H) 4.0 - 11.0 10e3/uL 05/13/2024 5:54 PM [facility] RBC Count 2.16(L) 3.80 - 5.20 10e6/uL 05/13/2024 5:54 PM [facility] Hemoglobin 7.1(L) 11.7 - 15.7 g/dL 05/13/2024 5:54 PM [facility] Hematocrit 19.9(L) 35.0 - 47.0 % 05/13/2024 5:54 PM [facility] MCV 92 78 - 100 fL 05/13/2024 5:54 PM [facility] MCH 32.9 26.5 - 33.0 pg 05/13/2024 5:54 PM [facility] MCHC 35.7 31.5 - 36.5 g/dL 05/13/2024 5:54 PM [facility] RDW 24.5(H) 10.0 - 15.0 % 05/13/2024 5:54 PM [facility] Platelet Count 459(H) 150 - 450 10e3/uL 05/13/2024 5:54 PM [facility] Blood VENOUS LINE / Unknown Venipuncture / Unknown 05/13/2024 4:57 PM SMALL BUSINESS SALES REPRESENTATIVE 05/13/2024 5:09 PM SMALL BUSINESS SALES REPRESENTATIVE Shaheen Unger MD LAB - BLOOD ORDERABLES Final Res ult [facility] [address] [place] [address], [place] * Troponin T, High Sensitivity (05/13/2024 4:57 PM SMALL BUSINESS SALES REPRESENTATIVE) Pathologist [facility] Troponin T, High Sensitivity <6 <=14 ng/L 05/13/2024 5:31 PM SMALL BUSINESS SALES REPRESENTATIVE [facility] Comment: Either a High [...] Unknown Venipuncture / Unknown 05/13/2024 4:57 PM SMALL BUSINESS SALES REPRESENTATIVE 05/13/2024 5:09 PM SMALL BUSINESS SALES REPRESENTATIVE us Shaheen Unger MD LAB - BLOOD ORDERABLES Final Res ult [facility] [address] [facility] [place], [place] [address] * (ABNORMAL) Reticulocyte count (05/13/2024 4:57 PM SMALL BUSINESS SALES REPRESENTATIVE) Pathologist [facility] % Reticulocyte 25.9(H) 0.5 - 2.0 % 05/13/2024 5:33 PM SMALL BUSINESS SALES REPRESENTATIVE [facility] Absolute Reticulocyte 0.566(H) 0.025 - 0.095 10e6/uL 05/13/2024 5:33 PM SMALL BUSINESS SALES REPRESENTATIVE [facility] Blood VENOUS LINE / Unknown Venipuncture / Unknown 05/13/2024 4:57 PM SMALL BUSINESS SALES REPRESENTATIVE 05/13/2024 5:09 PM SMALL BUSINESS SALES REPRESENTATIVE us Shaheen Unger MD LAB - BLOOD ORDERABLES Final Res ult [facility] [address] [facility] [place] [address], [facility] * (ABNORMAL) Hepatic function panel (05/13/2024 4:57 PM SMALL BUSINESS SALES REPRESENTATIVE) [facility] Protein Total 7.4 6.4 - 8.3 g/dL 05/13/2024 5:38 PM [facility] Albumin 4.1 3.5 - 5.2 g/dL 05/13/2024 5:38 PM [facility] Bilirubin Total 2.4(H) <=1.2 mg/dL 05/13/2024 5:38 PM [facility] Alkaline Phosphatase 111 40 - 150 U/L 05/13/2024 5:38 PM [facility] AST 64(H) 0 - 45 U/L 05/13/2024 5:38 PM [facility] ALT 36 0 - 50 U/L 05/13/2024 5:38 PM [facility] Bilirubin Direct 05/13/19 25 5:38 PM [facility] Comment:Unsatisfactory speci men - hemolyzed Blood VENOUS LINE / Unknown Venipuncture / Unknown 05/13/2024 4:57 PM SMALL BUSINESS SALES REPRESENTATIVE 05/13/2024 5:09 PM [facility] Shaheen Unger MD LAB - BLOOD ORDERABLES Final Res ult Performing Organization Address [facility]/State/ZIP Co de Phone Number [facility] [address] [place] [address] [place] [address], [facility] * (ABNORMAL) Basic metabolic panel (05/13/2024 4:57 PM SMALL BUSINESS SALES REPRESENTATIVE) [facility] Sodium 136 135 - 145 mmol/L 05/13/2024 5:31 PM [facility] Potassium 4.8 3.4 - 5.3 mmol/L 05/13/2024 5:31 PM [facility] Chloride 104 98 - 107 mmol/L 05/13/2024 5:31 PM [facility] Carbon Dioxide (CO2) 19(L) 22 - 29 mmol/L 05/13/2024 5:31 PM [facility] Anion Gap 13 7 - 15 mmol/L 05/13/2024 5:31 PM SMALL BUSINESS SALES REPRESENTATIVE [facility] Urea Nitrogen 9.1 6.0 - 20.0 mg/dL 05/13/2024 5:31 PM [facility] Creatinine 0.69 0.51 - 0.95 mg/dL 05/13/2024 5:31 PM [facility] GFR Estimate >90 >60 mL/min/1.7 3m2 05/13/2024 5:31 PM [facility] Comment:eGFR calculated usin g 2020 CKD-EPI equation. Calcium 8.3(L) 8.8 - 10.4 mg/dL 05/13/2024 5:31 PM [facility] Comment:Reference intervals for this test were updated on 11/09/2023 to reflect our healthy population more accurately. There may be differences in the flagging of prior results with similar values performed with this method. Those prior results can be interpreted in the context of the updated reference intervals. Glucose 103(H) 70 - 99 mg/dL 05/13/2024 5:31 PM [facility] Blood VENOUS LINE / Unknown Venipuncture / Unknown 05/13/2024 4:57 PM SMALL BUSINESS SALES REPRESENTATIVE 05/13/2024 5:09 PM SMALL BUSINESS SALES REPRESENTATIVE us Shaheen Unger MD LAB - BLOOD ORDERABLES Final Res ult [facility] [address] [facility] [place] [address], [facility] * ECG 12-LEAD WITH MUSE (LHE) (05/13/2024 3:38 PM SMALL BUSINESS SALES REPRESENTATIVE) Systolic Blood Pressure mmHg RADIOLOGY RESULTS Diastolic Blood Pressure mmHg RADIOLOGY RESULTS Ventricular Rate 102 BPM RAD IOLOGY RESULTS Atrial Rate 102 BPM RADIOLOG Y RESULTS DC Interval 144 ms RADIOLOG Y RESULTS QRS Duration 84 ms RADIOLO GY RESULTS QT 322 ms RADIOLOGY RESULTS QTc 419 ms RADIOLOGY RESULTS P [place] 32 degrees RADIOLOGY RESULTS R AXIS 59 degrees RADIOLOGY RESULTS T [place] 37 degrees RADIOLOGY RESULTS Interpretation ECG Sinus tachycardia Nonspecific T wave abnormality Abnormal ECG When compared with ECG of 08-May-2024 15:13, No significant change was found Confirmed by SEE ED PROVIDER NOTE FOR, ECG INTERPRETATION (4000), technical writer and editor Leticia Warner ([id number]) on 05/13/2024 4:13:45 PM RADIOLOGY RESULTS 05/13/2024 3:38 PM SMALL BUSINESS SALES REPRESENTATIVE 05/13/2024 4:13 PM SMALL BUSINESS SALES REPRESENTATIVE Shaheen Unger MD ECG ORDERABLES Edited Result [...] For 1 dose $Given 05/13/2024 5:38 PM SMALL BUSINESS SALES REPRESENTATIVE 25 mg diphenhydrAMINE (BENADRYL) injection 25 mg 25 mg, Intravenous, ONCE, On 05/13/24 at 1900, For 1 dose $Given 05/13/2024 7:05 PM SMALL BUSINESS SALES REPRESENTATIVE 25 mg HYDROmorphone (DILAUDID) injection 1 mg 1 mg, Intravenous, EVERY 1 HOUR PRN, moderate pain, severe pain, Starting on 05/13/24 at 1610, For 1 dose, Notify the provider to assess for uncontrolled pain or analgesic side effects. Hold while on IV COMPTROLLER or with regular IV opioid dosing. $Given 05/13/2024 4:58 PM SMALL BUSINESS SALES REPRESENTATIVE 1 mg HYDROmorphone (DILAUDID) injection 1 mg 1 mg, Intravenous, ONCE, On 05/13/24 at 1800, For 1 dose $Given 05/13/2024 6:00 PM SMALL BUSINESS SALES REPRESENTATIVE 1 mg HYDROmorphone (DILAUDID) injection 1 mg 1 mg, Intravenous, ONCE, On 05/13/24 at 1930, For 1 dose $Given 05/13/2024 7:28 PM SMALL BUSINESS SALES REPRESENTATIVE 1 mg lactated ringers BOLUS 1,000 mL Intravenous, 1,000 mL, ONCE, at 500 mL/hr, Administer over 2 Hours, On 05/13/24 at 1630, For 1 dose $New Bag 05/13/2024 5:01 PM SMALL BUSINESS SALES REPRESENTATIVE 1,000 mLs 500 mL/hr documented in this encounter Active and Recently Administered Medications Times are shown in SMALL BUSINESS SALES REPRESENTATIVE. Scheduled Medication Order 05/11/2024 05/12/202405/13/2024 diphenhydrAMINE (BENADRYL) [...] analgesic side effects. Hold while on IV COMPTROLLER or with regular IV opioid dosing. 1658 ($Given - Provi nas: Cherrie Garcia RN) documented in this encounter Care Teams Micro Computer Data Processor Relationship Specialty Start Date End Date No Ref-Primary, Physician PCP - General 03/15/24 06/17/24 Mor Rasmey Medical Student 04/03/24 documented as of this encounter
--- OUTSIDE RECORDS SUMMARY | 2024-06-22 01:11 | XMS_ITS | Encounter Summary ---
Author Organization [place] Address [facility] [place] [address] Care Team Providers Care Cold Storage Worker Name Role Phone No Ref-Primary, Physician [...] on file Legal Sex Female 8:25 AM AUTOMATIC I THREADING MACHINE FEEDER Gender Identity Not on file Sexual Orientation Not on file documented as of this encounter Plan of Treatment Not on file documented as of this encounter Goals Goal Patient Goal Type Associated Problems Recent Progress Patient-Stated? Author Pain Management General On track( 025 12:40 PM AUTOMATIC I THREADING MACHINE FEEDER) Yes Juhi Benson, RN Note: Goal Statement: [...] on filedocumented in this encounter Care Teams Cold Storage Worker Relationship Specialty Start Date End Date No Ref-Primary, Physician PCP - General 03/15/24 06/17/24 Mor Ramsey Medical Student 04/03/24 documented as of this encounter
--- OUTSIDE RECORDS SUMMARY | 2024-06-22 01:11 | XMS_ITS ---
Author Organization [facility] Address [address] [place] [address] Care Team Providers Care Scaffold Erector Name Role Phone Roxy Mor Unavailable Unavailable Case Samuel MD Unavailable [phone] Juhi Benson RN Unavailable Unavailable Veronica Joseph MD Primary Care Provider [phone] Transitional Care Management Status:Enrolled (Active) Start date:06/16/2024 Enrollment date:06/16/2024 Continued Care and Services Coordination
--- OUTSIDE RECORDS SUMMARY | 2024-06-22 01:11 | XMS_ITS | Encounter Summary ---
Author Organization [facility] Address [address] [place] [address]. [place] [address] Care Team Providers Care Manager Underwriting Name Role Phone No Ref-Primary, Physician Primary Care Provider Mor Ramsey Unavailable Unavailable Case Samuel MD Unavailable [phone] Encounter Details Date Type Department Care Team [...] on file Legal Sex Female 8:25 AM DIVISION SALES MANAGER Gender Identity Not on file Sexual Orientation Not on file documented as of this encounter Plan of Treatment Not on file documented as of this encounter Goals Goal Patient Goal Type Associated Problems Recent Progress Patient-Stated? Author Pain Management General On track( 025 12:40 PM DIVISION SALES MANAGER) Yes Juhi Benson, RN Note: Goal [...] filedocumented in this encounter Care Teams Manager Underwriting Relationship Specialty Start Date End Date No Ref-Primary, Physician PCP - General 03/15/24 06/17/24 Mor Ramsey Medical Student 04/03/24 Case Samuel MD [address] [place] [address], [address] [place] [address] Assigned Pediatric Specialist Provider 05/18/24 documented as of this encounter
--- OUTSIDE RECORDS SUMMARY | 2024-06-22 01:11 | XMS_ITS | Encounter Summary ---
Author Organization [place] Address [address] [place] [address] Care Team Providers Care Mailroom Messenger Name Role Phone No Ref-Primary, Physician Primary Care Provider Mor Ramsey Unavailable Unavailable Case Samuel MD Unavailable [phone] Reason for Visit * Reason Comments Sickle Cell Pain Crisis Encounter Details Date Type Department Care Team (Late st Contact Info) Description 05/19/2024 2:10 AM GRAPHICS SOFTWARE ENGINEER - 05/19/2024 6:06 AM [facility] Emergency [facility] Emergency Room [facility] [place] [address] Marilia Summers MD [address] [place] [address] [phone] Sickle cell disease with crisis (H) Discharge [...] on file Legal Sex Female 8:25 AM GRAPHICS SOFTWARE ENGINEER Gender Identity Not on file Sexual Orientation Not on file documented as of this encounter Last Filed Vital Signs Vital Sign Reading Time Taken Comments Blood Pressure 110/60 05/19/2024 5:30 AM GRAPHICS SOFTWARE ENGINEER Pulse 89 05/19/2024 5:30 AM GRAPHICS SOFTWARE ENGINEER Temperature 36.9 C (98.4 F) 05/19/2024 2:16 AM GRAPHICS SOFTWARE ENGINEER Respiratory Rate 16 05/19/2024 2:16 AM GRAPHICS SOFTWARE ENGINEER Oxygen Saturation 95% 05/19/2024 5:30 AM GRAPHICS SOFTWARE ENGINEER Inhaled Oxygen Concentration - - Weight 51.7 kg (114 lb) 05/19/2024 2:16 AM GRAPHICS SOFTWARE ENGINEER Height 160 cm (5' 3) 05/19/2024 2:16 AM GRAPHICS SOFTWARE ENGINEER Body Mass Index 20.19 05/19/2024 2:16 AM GRAPHICS SOFTWARE ENGINEER documented in this encounter Discharge Instructions * Discharge Instructions* Marilia Summers MD - 05/19/2024 6:02 AM GRAPHICS SOFTWARE ENGINEER Keep your hematology appointment for the third. Talk with your oncologist about your pain control and what you should do about it while you wait for that appointment. Also you are still a bit more anemic than your spool cleaner would like. HICS SOFTWARE ENGINEER * Attachments The following attachments cannot be sent through Care Everywhere. * Sickle Cell Crisis (Greenlandic) documented in this encounter Medications at Time [...] sleep. Took 4mg dilaudid po 3 hours MEDICAL WRITER. C/o 10 generalized back pain Triage Assessment [...] Docusate, Senna PRN 0309 I reviewed the [facility] database for prescriptions. Her last fill [...] still a bit more anemic than her spool cleaner would like and so I encouraged her [...] history is provided by the patient. No speech and language clinician was used. Gianna Hernández is a 29 [...] hCG Serum Qualitative Negative Negative Narrative Lot#: [id number] Exp: 2025-09-28 CBC with platelets and differential [...] Status --------- ------ CBC with platelets and d...[[id number]] Abnormal Final result Manual Differential[[id number]] Abnormal Final result Please view results for these tests on the individual orders. [facility] Documentation Medical Decision Making Obtained supplemental [...] with other provider:Did you involve another provider (senior consultant, , pharmacy, etc.)?: I discussed the [...] my direction. Marilia Summers MD Emergency Medicine [facility] EMERGENCY ROOM Marilia Summers MD 05/19/24 0607 HICS SOFTWARE ENGINEER * Moy Stewart RN - 05/19/2024 2:18 AM CST To ED per POV C/o being in sickle cell crisis which awoke her from sleep. Took 4mg dilaudid po 3 hours MEDICAL WRITER. C/o 9/10 generalized back pain Triage Assessment (Adult) Row Name 05/19/24 0217 Triage Assessment Airway WDL WDL Respiratory WDL Respiratory WDL WDL Skin Circulation/Temperature WDL Skin Circulation/Temperature WDL WDL Cardiac WDL Cardiac WDL rhythm Pulse Rate & Regularity tachycardic Peripheral/Neurovascular WDL Peripheral Neurovascular WDL WDL Cognitive/Neuro/Behavioral WDL Cognitive/Neuro/Behavioral WDL WDL HICS SOFTWARE ENGINEER documented in this encounter Plan of Treatment Not on file documented as of this encounter Goals Goal Patient Goal Type Associated Problems Recent Progress Patient-Stated? Author Pain Management General On track( 025 12:40 PM GRAPHICS SOFTWARE ENGINEER) Yes Juhi Benson, RN Note: Goal [...] MANUAL DIFFERENTIAL STAT 05/19/2024 3 :05 AM GRAPHICS SOFTWARE ENGINEER CBC WITH PLATELETS AND DIFFERENTIAL STAT 05/19/2024 3:05 AM GRAPHICS SOFTWARE ENGINEER CBC WITH PLATELETS & DIFFERENTIAL STAT 05/19/2024 3:05 AM GRAPHICS SOFTWARE ENGINEER RETICULOCYTE COUNT STAT 05/19/2024 3: 05 AM GRAPHICS SOFTWARE ENGINEER HEPATIC FUNCTION PANEL STAT 05/19/2024 3:05 AM GRAPHICS SOFTWARE ENGINEER HCG QUALITATIVE STAT 05/19/2024 3:05 AM GRAPHICS SOFTWARE ENGINEER CK TOTAL STAT 05/19/2024 3:05 AM GRAPHICS SOFTWARE ENGINEER BASIC METABOLIC PANEL STAT 05/19/2024 3:05 AM GRAPHICS SOFTWARE ENGINEER documented in this encounter Results * (ABNORMAL) Manual Differential (05/19/2024 3:05 AM [facility]) Pathologist [facility] % Neutrophils 66 % JARET 05/19/2024 4:12 AM [facility] % Lymphocytes 19 % JARET 05/19/2024 4:12 AM [facility] % Monocytes 11 % JARET 05/19/2024 4:12 AM [facility] % Eosinophils 2 % JARET 05/19/2024 4:12 AM [facility] % Basophils 2 % JARET 05/19/2024 4:12 AM [facility] Absolute Neutrophils 9.6(H) 1.6 - 8.3 10e3/uL JARET 05/19/2024 4:12 AM [facility] Absolute Lymphocytes 2.8 0.8 - 5.3 10e3/uL JARET 05/19/2024 4:12 AM [facility] Absolute Monocytes 1.6(H) 0.0 - 1.3 10e3/uL JARET 05/19/2024 4:12 AM [facility] Absolute Eosinophils 0.3 0.0 - 0.7 10e3/uL JARET 05/19/2024 4:12 AM [facility] Absolute Basophils 0.3(H) 0.0 - 0.2 10e3/uL JARET 05/19/2024 4:12 AM [facility] RBC Morphology Confirmed RBC Indices JARET 05/19/2024 4:12 AM [facility] Platelet Assessment Automated Count Confirmed. Platelet morphology is normal. Automated Count Confirmed. Platelet morphology is normal. JARET 05/19/2024 4:12 AM [facility] Elliptocytes Slight(A) None Seen JARET 05/19/2024 4:12 AM [facility] RBC Fragments Rare(A) None Seen JARET 05/19/2024 4:12 AM [facility] Polychromasia Slight(A) None Seen JARET 05/19/2024 4:12 AM [facility] Sickle Cells Slight(A) None Seen JARET 05/19/2024 4:12 AM [facility] Target Cells Slight(A) None Seen JARET 05/19/2024 4:12 AM [facility] Blood VENOUS LINE / Unknown Venipuncture / Unknown 05/19/2024 3:05 AM [facility] 05/19/2024 3:18 AM GRAPHICS SOFTWARE ENGINEER us Marilia Summers MD LAB - BLOOD ORDERABLES Final Result [facility] [address] [place] [id number], [facility] * (ABNORMAL) CBC with platelets and differential (05/19/2024 3:05 AM GRAPHICS SOFTWARE ENGINEER) [facility] WBC Count 14.5(H) 4.0 - 11.0 10e3/uL 05/19/2024 4:12 AM [facility] RBC Count 2.45(L) 3.80 - 5.20 10e6/uL 05/19/2024 4:12 AM [facility] Hemoglobin 7.7(L) 11.7 - 15.7 g/dL 05/19/2024 4:12 AM [facility] Hematocrit 22.7(L) 35.0 - 47.0 % 05/19/2024 4:12 AM [facility] MCV 93 78 - 100 fL 05/19/2024 4:12 AM [facility] MCH 31.4 26.5 - 33.0 pg 05/19/2024 4:12 AM [facility] MCHC 33.9 31.5 - 36.5 g/dL 05/19/2024 4:12 AM [facility] RDW 23.0(H) 10.0 - 15.0 % 05/19/2024 4:12 AM [facility] Platelet Count 518(H) 150 - 450 10e3/uL 05/19/2024 4:12 AM [facility] Blood VENOUS LINE / Unknown Venipuncture / Unknown 05/19/2024 3:05 AM GRAPHICS SOFTWARE ENGINEER 05/19/2024 3:18 AM GRAPHICS SOFTWARE ENGINEER us Marilia Summers MD LAB - BLOOD ORDERABLES Final Result [facility] [address] [place] [id number], [facility] * HCG QUALitative (blood) (05/19/2024 3:05 AM GRAPHICS SOFTWARE ENGINEER) [facility] hCG Serum Qualitative Negative Negative JARET 05/19/2024 3:29 AM [facility] Comment:This test is for scr eening purposes. Results should be interpreted along with the clinical picture. Confirmation testing is available if warranted by ordering [id number], HCG Quantitative . Blood VENOUS LINE / Unknown Venipuncture / Unknown 05/19/2024 3:05 AM GRAPHICS SOFTWARE ENGINEER 05/19/2024 3:18 AM GRAPHICS SOFTWARE ENGINEER Narrative [facility] - 05/19/2024 3:29 AM [facility] Lot#: [id number] Exp: 2025-09-28 Marilia Summers MD LAB - BLOOD ORDERABLES Final Result Performing Organization Address City/[facility]/ZIP Co de Phone Number [facility] [address] [place] [address] * (ABNORMAL) CK total (05/19/2024 3:05 AM GRAPHICS SOFTWARE ENGINEER) [facility] CK 240(H) 26 - 192 U/L 05/19/2024 3:37 AM [facility] Blood VENOUS LINE / Unknown Venipuncture / Unknown 05/19/2024 3:05 AM GRAPHICS SOFTWARE ENGINEER 05/19/2024 3:18 AM GRAPHICS SOFTWARE ENGINEER Marilia Summers MD LAB - BLOOD ORDERABLES Final Result Performing Organization Address City/[facility]/ZIP Co de Phone Number [facility] [address] [place] [address] * (ABNORMAL) Hepatic function panel (05/19/2024 3:05 AM GRAPHICS SOFTWARE ENGINEER) [facility] Protein Total 7.9 6.4 - 8.3 g/dL 05/19/2024 3:37 AM [facility] Albumin 4.3 3.5 - 5.2 g/dL 05/19/2024 3:37 AM [facility] Bilirubin Total 2.6(H) <=1.2 mg/dL 05/19/2024 3:37 AM [facility] Alkaline Phosphatase 128 40 - 150 U/L 05/19/2024 3:37 AM [facility] AST 67(H) 0 - 45 U/L 05/19/2024 3:37 AM [facility] ALT 39 0 - 50 U/L 05/19/2024 3:37 AM [facility] Bilirubin Direct 0.65(H) 0.00 - 0.30 mg/dL 05/19/2024 3:37 AM [facility] Blood VENOUS LINE / Unknown Venipuncture / Unknown 05/19/2024 3:05 AM [facility] 05/19/2024 3:18 AM [facility] us Marilia Summers MD LAB - BLOOD ORDERABLES Final Result [facility] [address] [place] [address], [facility] * (ABNORMAL) Basic metabolic panel (05/19/2024 3:05 AM [facility]) Sodium 137 135 - 145 mmol/L 05/19/2024 3:37 AM [facility] Potassium 4.2 3.4 - 5.3 mmol/L 05/19/2024 3:37 AM [facility] Chloride 107 98 - 107 mmol/L 05/19/2024 3:37 AM [facility] Carbon Dioxide (CO2) 20(L) 22 - 29 mmol/L 05/19/2024 3:37 AM [facility] Anion Gap 10 7 - 15 mmol/L 05/19/2024 3:37 AM [facility] Urea Nitrogen 11.2 6.0 - 20.0 mg/dL 05/19/2024 3:37 AM [facility] Creatinine 0.81 0.51 - 0.95 mg/dL 05/19/2024 3:37 AM [facility] GFR Estimate >90 >60 mL/min/1.7 3m2 05/19/2024 3:37 AM [facility] Comment:eGFR calculated usin 2020 CKD-EPI equation. Calcium 9.1 8.8 - 10.4 mg/dL 05/19/2024 3:37 AM [facility] Comment:Reference intervals for this test were updated on 11/09/2023 to reflect our healthy population more accurately. There may be differences in the flagging of prior results with similar values performed with this method. Those prior results can be interpreted in the context of the updated reference intervals. Glucose 99 70 - 99 mg/dL 05/19/2024 3:37 AM [facility] Blood VENOUS LINE / Unknown Venipuncture / Unknown 05/19/2024 3:05 AM GRAPHICS SOFTWARE ENGINEER 05/19/2024 3:18 AM GRAPHICS SOFTWARE ENGINEER Marilia Summers MD LAB - BLOOD ORDERABLES Final Result Performing Organization Address [facility] de Phone Number [facility] [address] [place] [address] [place] [address], [facility] * (ABNORMAL) Reticulocyte count (05/19/2024 3:05 AM GRAPHICS SOFTWARE ENGINEER) [facility] % Reticulocyte 23.3(H) 0.5 - 2.0 % 05/19/2024 3:47 AM [facility] Absolute Reticulocyte 0.550(H) 0.025 - 0.095 10e6/uL 05/19/2024 3:47 AM [facility] Blood VENOUS LINE / Unknown Venipuncture / Unknown 05/19/2024 3:05 AM GRAPHICS SOFTWARE ENGINEER 05/19/2024 3:18 AM GRAPHICS SOFTWARE ENGINEER Marilia Summers MD LAB - BLOOD ORDERABLES Final Result Performing Organization Address [facility] de Phone Number [facility] [address] [place] [address] PROSPER [address] [facility], [facility] documented in this [...] For 1 dose $Given 05/19/2024 3:10 AM GRAPHICS SOFTWARE ENGINEER 25 mg diphenhydrAMINE (BENADRYL) injection 25 mg 25 mg, Intravenous, ONCE, On Wed05/19/24 at 0530, For 1 dose $Given 05/19/2024 5:17 AM GRAPHICS SOFTWARE ENGINEER 25 mg HYDROmorphone (DILAUDID) injection 2 mg 2 mg, Intravenous, EVERY 1 HOUR PRN, moderate pain, Starting on Wed05/19/24 at 0241, For 3 doses $Given 05/19/2024 5:30 AM GRAPHICS SOFTWARE ENGINEER 2 mg $Given 05/19/2024 4:19 AM GRAPHICS SOFTWARE ENGINEER 2 mg $Given 05/19/2024 3:10 AM GRAPHICS SOFTWARE ENGINEER 2 mg lactated ringers BOLUS 1,000 mL Intravenous, 1,000 mL, ONCE, at 500 mL/hr, Administer over 2 Hours, On Wed05/19/24 at 0300, For 1 dose Rate/Dose Verify 05/19/2024 4:24 AM GRAPHICS SOFTWARE ENGINEER 500 mL/hr $New Bag 05/19/2024 3:15 AM GRAPHICS SOFTWARE ENGINEER 1,000 mLs 500 mL/hr ondansetron (ZOFRAN) injection 8 mg 8 mg, Intravenous, ONCE, Administer over 2-5 Minutes, On Wed05/19/24 at 0530, For 1 dose $Given 05/19/2024 5:17 AM GRAPHICS SOFTWARE ENGINEER 8 mg documented in this encounter Active and Recently Administered Medications Times are shown in GRAPHICS SOFTWARE ENGINEER. Scheduled Medication Order 05/17/2024 05/18/2024 05/19/2024 diphenhydrAMINE [...] RN) documented in this encounter Care Teams Mailroom Messenger Relationship Specialty Start Date End Date No Ref-Primary, Physician PCP - General 03/15/24 06/17/24 Mor Ramsey Medical Student 04/03/24 Case Samuel MD [address] [place] [address] 484, [address] [place] [address] Assigned Pediatric Specialist Provider 05/18/24 documented as of this encounter
--- OUTSIDE RECORDS SUMMARY | 2024-06-22 01:11 | XMS_ITS | Encounter Summary ---
Author Organization [place] Address [facility] [place] [address] Care Team Providers Care Transition Program Manager Name Role Phone No Ref-Primary, Physician [...] on file Legal Sex Female 8:25 AM FLY WINDER Gender Identity Not on file Sexual Orientation Not on file documented as of this encounter Plan of Treatment Not on file documented as of this encounter Goals Goal Patient Goal Type Associated Problems Recent Progress Patient-Stated? Author Pain Management General On track( 025 12:40 PM FLY WINDER) Yes Juhi Benson, RN Note: Goal Statement: [...] Out COVID-19 05/16/2024 05/16/2024 05/16/2024 10:46 PM FLY WINDER documented as of this encounter Care Teams Transition Program Manager Relationship Specialty Start Date End Date No Ref-Primary, Physician PCP - General 03/15/24 06/17/24 Mor Ramsey Medical Student 04/03/24 documented as of this encounter
[2024-06-22 01:30] VITALS: RESP 16; O2SAT 98
[2024-06-22 02:01] VITALS: BP 116/74; PULSE 86; RESP 16; TEMP 36.8; O2SAT 96
--- NOTE | 2024-06-22 02:02 | ED.GENADULT ---
HPI - General Adult General Chief complaint: Unspecified Complaint, Adult Stated complaint: Sickle cell exacerbation Time Seen by Provider: 06/21/24 23:59 Source: patient Mode of arrival: ambulatory Limitations: no limitations Related Data Home Medications ?Medication ?Instructions ?Recorded ?Confirmed hydromorphone 2 mg tablet 4 mg PO Q4H PRN pain 04/02/24 04/08/24 folic acid 2 tab PO DAILY 04/04/24 04/08/24 hydroxyurea (sickle cell) 1,000 mg PO BID 04/04/24 04/08/24 Previous Rx's ?Medication ?Instructions ?Recorded azithromycin 250 mg tablet 250 mg PO DAILY 4 days #4 tabs 04/08/24 cefdinir 300 mg capsule 300 mg PO BID #20 caps 04/08/24 cefdinir 300 mg capsule 300 mg PO BID 107 days #214 caps 04/08/24 Allergies Allergy/AdvReac Type Severity Reaction Status Date / Time cashew nut Allergy Verified 04/08/24 00:45 ketorolac (From Toradol) Allergy Verified 04/08/24 00:45 tramadol Allergy Verified 04/08/24 00:45 banana AdvReac Verified 04/08/24 00:45 latex AdvReac Verified 04/08/24 00:45 [facility] History (Updated 06/22/24 @ 00:48 by Nivai Gan MD) Sickle cell pain crisis ?D57.00 - Hb-SS disease with crisis, unspecified (ICD-10) Sickle cell anemia ?D57.1 - Sickle-cell disease without crisis (ICD-10) Social History Smoking Status: Never smoker Do you use any of these nicotine containing products: None How often do you have a drink containing alcohol: never AUDIT-C Alcohol total score: 0 Non-prescribed substance use: opiods/painkillers Exam Const: Vital Signs, click to edit/add: Vital Signs - 24 hr 06/21/24 22:20 06/22/24 02:01 06/22/24 02:03 Temperature 98.6 F 98.2 F Pulse Rate [Pulse Oximeter] 115 H 86 Respiratory Rate 16 16 Blood Pressure [Ri ght Upper Arm] 113/76 116/74 Pulse Oximetry 98 96 98 Oxygen Delivery Me thod Room Air Room Air Course Vital Signs Vital signs: Initial Vital Signs Temperature 98.6 F 06/21/24 22:20 Temperature Source Temporal Artery Scan 06/21/24 22:20 Pulse Rate 115 H 06/21/24 22:20 Respiratory Rate 16 06/21/24 22:20 Blood Pressure 113/76 06/21/24 22:20 Blood Pressure Mean 88 06/21/24 22:20 Blood Pressure Position Sitting 06/21/24 22:20 Pulse Oximetry 98 06/21/24 22:20 Oxygen Delivery Method Room Air 06/21/24 22:20 Vital Signs Temperature 98.6 F 06/21/24 22:20 Pulse Rate 115 H 06/21/24 22:20 Respiratory Rate 16 06/21/24 22:20 Blood Pressure 113/76 06/21/24 22:20 Pulse Oximetry 98 06/21/24 22:20 Oxygen Delivery Method Room Air 06/21/24 22:20 Temperature 98.2 F 06/22/24 02:01 Pulse Rate 86 06/22/24 02:01 Respiratory Rate 16 06/22/24 02:01 Blood Pressure 116/74 06/22/24 02:01 Pulse Oximetry 98 06/22/24 02:03 Oxygen Delivery Method Room Air 06/22/24 02:01 Medications Administered Medications: Generic Name Dose Route Start Last Admin Trade Name Ramona PRN Reason Stop Dose Admin Heparin Sodium (Porcine) 500 unit 06/22/24 02:01 06/22/24 02:09 Heparin 500 Unit/5 Ml Syringe IVF 06/22/24 02:02 500 unit ONCE ONE Administration Discontinued Medications Generic Name Dose Route Start Last Admin Trade Name Ramona PRN Reason Stop Dose Admin Hydromorphone HCl 2 mg 06/22/24 00:39 06/22/24 00:50 Hydromorphone 0.5 Mg/0.5 Ml Inj IVP 06/22/24 00:40 2 mg ONCE ONE Administration Hydromorphone HCl 2 mg 06/22/24 01:40 06/22/24 01:50 Hydromorphone 0.5 Mg/0.5 Ml Inj IVP 06/22/24 01:41 2 mg ONCE ONE Administration Hydromorphone HCl 2 mg 06/22/24 01:10 06/22/24 01:20 Hydromorphone 0.5 Mg/0.5 Ml Inj IVP 06/22/24 01:11 2 mg ONCE ONE Administration Lactated Ringer's 1,000 mls @ 1,000 mls/hr 06/22/24 00:39 06/22/24 01:59 Lactated Ringers 1000 Ml IV 06/22/24 01:38 Infused .Q1H ONE Infusion Discharge Plan Discharge Clinical Impression: Sickle cell pain crisis Patient Disposition: Home w/ Parent or Adult Condition: Improved Instructions: Sickle Cell Crisis (ED) Additional Instructions: As we discussed, we did not do a comprehensive workup regarding her sickle cell today. It does sound as though this is being well managed by your team. I am hopeful that starting PA's makes change will be helpful for you. I have documented your pain management plan as outlined specifically by your wood getter in our records. Please always have access to your my chart notes and be prepared to pull up that hematology note if you come to our emergency department. Today you tolerated and accelerated pace of that plan which I will document as well. I am sorry the these episodes keep happening and I do hope that you get some relief from more advanced treatments. Activity Level: Activity as Tolerated Discharge Diet: Regular Prescriptions: No Action cefdinir 300 mg capsule 300 mg PO BID 107 Days Qty: 214 0RF azithromycin 250 mg tablet 250 mg PO DAILY 4 Days Qty: 4 0RF Rx Instructions: first dose was given in ER 04/08/24. start on day 2 of therapy cefdinir 300 mg capsule 300 mg PO BID Qty: 20 0RF hydromorphone 2 mg tablet 4 mg PO Q4H PRN (Reason: pain) hydroxyurea (sickle cell) 1,000 mg PO BID folic acid 2 tab PO DAILY Rx Instructions: 2mg Follow Up/Referrals: Provider,Not a Local [Primary Care Provider] - Stand Alone Forms: MyHealth Info Instructions
[2024-06-22 02:03] VITALS: O2SAT 98
[2024-06-22] MEDS: HEPARIN 500 UNIT/5 ML SYRINGE IVF (02:09)
== END 2024-06-22 02:30 | disposition home or self-care (01) ==
PROVIDERS: Emergency Provider Family Medicine
DX: D57.219 Sickle-cell/Hb-C disease with crisis, unspecified (principal)
CPT/HCPCS: 94761; 96374; 96376; 99283; 99284; J1171; J1642; J7120

== ENCOUNTER 2024-06-24 20:02 | Emergency (ER) | payer BC, SELFPAY ==
--- OUTSIDE RECORDS SUMMARY | 2024-06-24 20:06 | XMS_ITS | Encounter Summary ---
Author Organization [facility] Address [address] [place] [id number] Care Team Providers Care Mosaic Floor Layer Name Role Phone No Ref-Primary, Physician Primary Care Provider Mor Ramsey Unavailable Unavailable Reason for Visit * Reason Comments Sickle Cell Pain Crisis Encounter Details Date Type Department Care Team ([facility] st Contact Info) Description 05/13/2024 3:56 PM STEAM DRIER TENDER - 05/13/2024 7:56 PM STEAM DRIER TENDER Emergency [facility] Emergency Room [facility] [place] [address] Shaheen Unger MD [address] [place] [address] [id number] Sickle cell pain crisis (H) Discharge Disposition: [...] on file Legal Sex Female 8:25 AM STEAM DRIER TENDER Gender Identity Not on file Sexual Orientation Not on file documented as of this encounter Last Filed Vital Signs Vital Sign Reading Time Taken Comments Blood Pressure 102/66 05/13/2024 7:45 PM STEAM DRIER TENDER Pulse 83 05/13/2024 7:45 PM STEAM DRIER TENDER Temperature 36.9 C (98.4 F) 05/13/2024 7:45 PM STEAM DRIER TENDER Respiratory Rate 29 05/13/2024 7:45 PM STEAM DRIER TENDER Oxygen Saturation 97% 05/13/2024 7:29 PM STEAM DRIER TENDER Inhaled Oxygen Concentration - - Weight 53.3 kg (117 lb 6.4 oz) 05/13/2024 3:33 P M STEAM DRIER TENDER Height 154.9 cm (5' 1) 05/13/2024 3:33 PM STEAM DRIER TENDER Body Mass Index 22.18 05/13/2024 3:33 PM STEAM DRIER TENDER documented in this encounter Discharge Instructions * Discharge Instructions* Shaheen Unger MD - 05/13/2024 7:45 PM STEAM DRIER TENDER Your workup in the emergency department today was reassuring. I would continue with your prescription medications and contact your style advisor determine if they would like to follow-up with you closely in clinic otherwise if you develop fevers, significantly worsening chest pain, new shortness of breath or other concerning symptom please return to the emergency department for repeat evaluation. M DRIER TENDER * Attachments The following attachments cannot be sent through Care Everywhere. * Sickle Cell Crisis (Maldivian) documented in this encounter Medications at Time [...] with other provider:Did you involve another provider (client experience consultant, , pharmacy, etc.)?: No Discharge. No [...] was obtained from: the patient Use of Party Planner: N/A Gianna Hernández is a 29 year [...] was on 05/08/2024 (5 days ago) at [facility] ED. Prescriptions for Augmentin and doxycycline sent to her listed [facility] pharmacy. 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 Functional asplenia Gallstones Hb-SS disease [...] Currently Drug use: Never Social History Narrative [id number] mom. Recently moved to [place] from [place], [place]. She is 1 of 9 [...] Social Connections: Socially Integrated (03/28/2024) Received from [facility] Social Connections Do you often feel [...] Rate 102 BPM Atrial Rate 102 BPM NE Interval 144 ms QRS Duration 84 ms QT 322 ms QTc 419 ms P Prosperity 32 degrees R AXIS 59 degrees T Prosperity 37 degrees Interpretation ECG Sinus tachycardia Nonspecific T wave abnormality Abnormal ECG When compared with ECG of 08-May-2024 15:13, No significant change was found Confirmed by SEE ED PROVIDER NOTE FOR, ECG INTERPRETATION (4000), state editor Leticia Warner ([id number]) on 05/13/2024 4:13:45 PM RADIOLOGY: Reviewed all pertinent imaging. Please see official radiology report. No orders to display EKG: Performed at: Impression: EKG shows sinus tachycardia 102 beats a minute, normal axis, normal NE, QRS and QTc durations, no ST elevations, T wave inversions in V1 through V3 seen on prior EKGs, I have independently reviewed and interpreted the EKG(s) documented above. [facility] Documentation: [facility] Diagnoses: I, Abraham Ashby, am serving as a scribe to document services personally performed by Shaheen Unger MDbased on my observation and the provider's statements to me. I, Shaheen Unger MD, attest that Regla is acting in a scribe capacity, has observed my performance of the services and has documentedthem in accordance with my direction. Shaheen Unger MD [facility] EMERGENCY ROOM [address] [facility] [address] Shaheen Unger MD 05/13/24 7204 M DRIER TENDER * Jennifer Scherer RN - 05/13/2024 3:36 [...] ECG obtained Cognitive/Neuro/Behavioral WDL Cognitive/Neuro/Behavioral WDL WDL M DRIER TENDER documented in this encounter Plan of Treatment Not on file documented as of this encounter Goals Goal Patient Goal Type Associated Problems Recent Progress Patient-Stated? Author Pain Management General On track( 025 12:40 PM STEAM DRIER TENDER) Yes Juhi Benson, RN Note: Goal [...] Comments EXTRA TUBE STAT 05/13/2024 6:17 PM STEAM DRIER TENDER EXTRA PURPLE TOP TUBE STAT 05/13/2024 6:17 PM STEAM DRIER TENDER LACTATE DEHYDROGENASE STAT 05/13/2024 6:16 PM STEAM DRIER TENDER MANUAL DIFFERENTIAL STAT 05/13/2024 4 :57 PM STEAM DRIER TENDER CBC WITH PLATELETS AND DIFFERENTIAL STAT 05/13/2024 4:57 PM STEAM DRIER TENDER TROPONIN T, HIGH SENSITIVITY STAT 05/13/2024 4:57 PM STEAM DRIER TENDER CBC WITH PLATELETS & DIFFERENTIAL STAT 05/13/2024 4:57 PM STEAM DRIER TENDER RETICULOCYTE COUNT STAT 05/13/2024 4: 57 PM STEAM DRIER TENDER HEPATIC FUNCTION PANEL STAT 4:57 PM STEAM DRIER TENDER BASIC METABOLIC PANEL STAT 05/13/2024 4:57 PM STEAM DRIER TENDER ECG 12-LEAD WITH MUSE [facility] STAT 05/13/2024 3:38 PM STEAM DRIER TENDER documented in this encounter Results * Extra Purple Top Tube (05/13/2024 6:17 PM STEAM DRIER TENDER) Pathologist [facility] Emergency Department Hold Specimen JI 05/13/2024 7:31 PM STEAM DRIER TENDER [facility] Blood STRUCTURE OF RIGHT UPPER LIMB / Unknown Venipuncture / Unknown 05/13/2024 6:17 PM STEAM DRIER TENDER 05/13/2024 6:23 PM STEAM DRIER TENDER us Shaheen Unger MD LAB - BLOOD ORDERABLES Final Res ult Performing Organization Address [facility] Co de Phone Number [facility] [address] [facility] [place] [address], [facility] * (ABNORMAL) Lactate Dehydrogenase (05/13/2024 6:16 PM STEAM DRIER TENDER) [facility] Lactate Dehydrogenase 514(H) 0 - 250 U/L 05/13/2024 6:42 PM STEAM DRIER TENDER [facility] Blood STRUCTURE OF RIGHT UPPER LIMB / Unknown Venipuncture / Unknown 05/13/2024 6:16 PM STEAM DRIER TENDER 05/13/2024 6:23 PM STEAM DRIER TENDER us Shaheen Unger MD LAB - BLOOD ORDERABLES Final Res ult Performing Organization Address [facility]/ZIP Co de Phone Number [facility] [address] [facility] [place] [address], [facility] * (ABNORMAL) Manual Differential (05/13/2024 4:57 PM STEAM DRIER TENDER) % Neutrophils 63 % JARET 05/13/2024 5:54 PM [facility] % Lymphocytes 25 % JARET 05/13/2024 5:54 PM [facility] % Monocytes 11 % JARET 05/13/2024 5:54 PM [facility] % Eosinophils 1 % JARET 05/13/2024 5:54 PM [facility] % Basophils 0 % JARET 05/13/2024 5:54 PM [facility] Absolute Neutrophils 11.0(H) 1.6 - 8.3 10e3/uL JARET 05/13/2024 5:54 PM [facility] Absolute Lymphocytes 4.4 0.8 - 5.3 10e3/uL JARET 05/13/2024 5:54 PM [facility] Absolute Monocytes 1.9(H) 0.0 - 1.3 10e3/uL JARET 05/13/2024 5:54 PM [facility] Absolute Eosinophils 0.2 0.0 - 0.7 10e3/uL JARET 05/13/2024 5:54 PM [facility] Absolute Basophils 0.0 0.0 - 0.2 10e3/uL JARET 05/13/2024 5:54 PM [facility] RBC Morphology Confirmed RBC Indices JARET 05/13/2024 5:54 PM [facility] Platelet Assessment Automated Count Confirmed. Platelet morphology is normal. Automated Count Confirmed. Platelet morphology is normal. JARET 05/13/2024 5:54 PM [facility] Acanthocytes Slight(A) None Seen JARET 05/13/2024 5:54 PM [facility] Elliptocytes Slight(A) None Seen JARET 05/13/2024 5:54 PM [facility] Polychromasia Slight(A) None Seen JARET 05/13/2024 5:54 PM [facility] Sickle Cells Moderate(A) None Seen JARET 05/13/2024 5:54 PM [facility] Target Cells Slight(A) None Seen JARET 05/13/2024 5:54 PM [facility] Blood VENOUS LINE / Unknown Venipuncture / Unknown 05/13/2024 4:57 PM STEAM DRIER TENDER 05/13/2024 5:09 PM STEAM DRIER TENDER Shaheen Unger MD LAB - BLOOD ORDERABLES Final Res ult [facility] [address] [facility] [place] [address], [facility] * (ABNORMAL) CBC with platelets and differential (05/13/2024 4:57 PM STEAM DRIER TENDER) [facility] WBC Count 17.4(H) 4.0 - 11.0 10e3/uL 05/13/2024 5:54 PM [facility] RBC Count 2.16(L) 3.80 - 5.20 10e6/uL 05/13/2024 5:54 PM [facility] Hemoglobin 7.1(L) 11.7 - 15.7 g/dL 05/13/2024 5:54 PM [facility] Hematocrit 19.9(L) 35.0 - 47.0 % 05/13/2024 5:54 PM [facility] MCV 92 78 - 100 fL 05/13/2024 5:54 PM [facility] MCH 32.9 26.5 - 33.0 pg 05/13/2024 5:54 PM [facility] MCHC 35.7 31.5 - 36.5 g/dL 05/13/2024 5:54 PM [facility] RDW 24.5(H) 10.0 - 15.0 % 05/13/2024 5:54 PM [facility] Platelet Count 459(H) 150 - 450 10e3/uL 05/13/2024 5:54 PM [facility] Blood VENOUS LINE / Unknown Venipuncture / Unknown 05/13/2024 4:57 PM STEAM DRIER TENDER 05/13/2024 5:09 PM STEAM DRIER TENDER Shaheen Unger MD LAB - BLOOD ORDERABLES Final Res ult [facility] [address] [place] [address], [place] * Troponin T, High Sensitivity (05/13/2024 4:57 PM STEAM DRIER TENDER) Pathologist [facility] Emergency Department Troponin T, High Sensitivity <6 <=14 ng/L 05/13/2024 5:31 PM STEAM DRIER TENDER [facility] Comment: Either a High [...] Unknown Venipuncture / Unknown 05/13/2024 4:57 PM STEAM DRIER TENDER 05/13/2024 5:09 PM STEAM DRIER TENDER us Shaheen Unger MD LAB - BLOOD ORDERABLES Final Res ult [facility] [address] [facility] [place], [place] [address] * (ABNORMAL) Reticulocyte count (05/13/2024 4:57 PM STEAM DRIER TENDER) Pathologist [facility] Emergency Department % Reticulocyte 25.9(H) 0.5 - 2.0 % 05/13/2024 5:33 PM STEAM DRIER TENDER [facility] Absolute Reticulocyte 0.566(H) 0.025 - 0.095 10e6/uL 05/13/2024 5:33 PM STEAM DRIER TENDER [facility] Blood VENOUS LINE / Unknown Venipuncture / Unknown 05/13/2024 4:57 PM STEAM DRIER TENDER 05/13/2024 5:09 PM STEAM DRIER TENDER us Shaheen Unger MD LAB - BLOOD ORDERABLES Final Res ult [facility] [address] [facility] [place] [address], [facility] * (ABNORMAL) Hepatic function panel (05/13/2024 4:57 PM STEAM DRIER TENDER) [facility] Protein Total 7.4 6.4 - 8.3 g/dL 05/13/2024 5:38 PM [facility] Albumin 4.1 3.5 - 5.2 g/dL 05/13/2024 5:38 PM [facility] Bilirubin Total 2.4(H) <=1.2 mg/dL 05/13/2024 5:38 PM [facility] Alkaline Phosphatase 111 40 - 150 U/L 05/13/2024 5:38 PM [facility] AST 64(H) 0 - 45 U/L 05/13/2024 5:38 PM [facility] ALT 36 0 - 50 U/L 05/13/2024 5:38 PM [facility] Bilirubin Direct 05/13/19 25 5:38 PM [facility] Comment:Unsatisfactory speci men - hemolyzed Blood VENOUS LINE / Unknown Venipuncture / Unknown 05/13/2024 4:57 PM STEAM DRIER TENDER 05/13/2024 5:09 PM [facility] Shaheen Unger MD LAB - BLOOD ORDERABLES Final Res ult Performing Organization Address [facility]/State/ZIP Co de Phone Number [facility] [address] [place] [address] [place] [address], [facility] * (ABNORMAL) Basic metabolic panel (05/13/2024 4:57 PM STEAM DRIER TENDER) [facility] Sodium 136 135 - 145 mmol/L 05/13/2024 5:31 PM [facility] Potassium 4.8 3.4 - 5.3 mmol/L 05/13/2024 5:31 PM [facility] Chloride 104 98 - 107 mmol/L 05/13/2024 5:31 PM [facility] Carbon Dioxide (CO2) 19(L) 22 - 29 mmol/L 05/13/2024 5:31 PM [facility] Anion Gap 13 7 - 15 mmol/L 05/13/2024 5:31 PM STEAM DRIER TENDER [facility] Urea Nitrogen 9.1 6.0 - 20.0 mg/dL 05/13/2024 5:31 PM [facility] Creatinine 0.69 0.51 - 0.95 mg/dL 05/13/2024 5:31 PM [facility] GFR Estimate >90 >60 mL/min/1.7 3m2 05/13/2024 5:31 PM [facility] Comment:eGFR calculated usin g 2020 CKD-EPI equation. Calcium 8.3(L) 8.8 - 10.4 mg/dL 05/13/2024 5:31 PM [facility] Comment:Reference intervals for this test were updated on 11/09/2023 to reflect our healthy population more accurately. There may be differences in the flagging of prior results with similar values performed with this method. Those prior results can be interpreted in the context of the updated reference intervals. Glucose 103(H) 70 - 99 mg/dL 05/13/2024 5:31 PM [facility] Blood VENOUS LINE / Unknown Venipuncture / Unknown 05/13/2024 4:57 PM STEAM DRIER TENDER 05/13/2024 5:09 PM STEAM DRIER TENDER us Shaheen Unger MD LAB - BLOOD ORDERABLES Final Res ult [facility] [address] [facility] [place] [address], [facility] * ECG 12-LEAD WITH MUSE (LHE) (05/13/2024 3:38 PM STEAM DRIER TENDER) Systolic Blood Pressure mmHg RADIOLOGY RESULTS Diastolic Blood Pressure mmHg RADIOLOGY RESULTS Ventricular Rate 102 BPM RAD IOLOGY RESULTS Atrial Rate 102 BPM RADIOLOG Y RESULTS NE Interval 144 ms RADIOLOG Y RESULTS QRS Duration 84 ms RADIOLO GY RESULTS QT 322 ms RADIOLOGY RESULTS QTc 419 ms RADIOLOGY RESULTS P Prosperity 32 degrees RADIOLOGY RESULTS R AXIS 59 degrees RADIOLOGY RESULTS T Prosperity 37 degrees RADIOLOGY RESULTS Interpretation ECG Sinus tachycardia Nonspecific T wave abnormality Abnormal ECG When compared with ECG of 08-May-2024 15:13, No significant change was found Confirmed by SEE ED PROVIDER NOTE FOR, ECG INTERPRETATION (4000), state editor Leticia Warner ([id number]) on 05/13/2024 4:13:45 PM RADIOLOGY RESULTS 05/13/2024 3:38 PM STEAM DRIER TENDER 05/13/2024 4:13 PM STEAM DRIER TENDER Shaheen Unger MD ECG ORDERABLES Edited Result [...] For 1 dose $Given 05/13/2024 5:38 PM STEAM DRIER TENDER 25 mg diphenhydrAMINE (BENADRYL) injection 25 mg 25 mg, Intravenous, ONCE, On 05/13/24 at 1900, For 1 dose $Given 05/13/2024 7:05 PM STEAM DRIER TENDER 25 mg HYDROmorphone (DILAUDID) injection 1 mg 1 mg, Intravenous, EVERY 1 HOUR PRN, moderate pain, severe pain, Starting on 05/13/24 at 1610, For 1 dose, Notify the provider to assess for uncontrolled pain or analgesic side effects. Hold while on IV HAIR BOILER or with regular IV opioid dosing. $Given 05/13/2024 4:58 PM STEAM DRIER TENDER 1 mg HYDROmorphone (DILAUDID) injection 1 mg 1 mg, Intravenous, ONCE, On 05/13/24 at 1800, For 1 dose $Given 05/13/2024 6:00 PM STEAM DRIER TENDER 1 mg HYDROmorphone (DILAUDID) injection 1 mg 1 mg, Intravenous, ONCE, On 05/13/24 at 1930, For 1 dose $Given 05/13/2024 7:28 PM STEAM DRIER TENDER 1 mg lactated ringers BOLUS 1,000 mL Intravenous, 1,000 mL, ONCE, at 500 mL/hr, Administer over 2 Hours, On 05/13/24 at 1630, For 1 dose $New Bag 05/13/2024 5:01 PM STEAM DRIER TENDER 1,000 mLs 500 mL/hr documented in this encounter Active and Recently Administered Medications Times are shown in STEAM DRIER TENDER. Scheduled Medication Order 05/11/2024 05/12/202405/13/2024 diphenhydrAMINE (BENADRYL) [...] analgesic side effects. Hold while on IV HAIR BOILER or with regular IV opioid dosing. 1658 ($Given - Provi nas: Cherrie Garcia RN) documented in this encounter Care Teams Mosaic Floor Layer Relationship Specialty Start Date End Date No Ref-Primary, Physician PCP - General 03/15/24 06/17/24 Mor Ramsey Medical Student 04/03/24 documented as of this encounter
--- OUTSIDE RECORDS SUMMARY | 2024-06-24 20:06 | XMS_ITS | Encounter Summary ---
Author Organization [place] Address Replaced by [facility] [place] [address] Care Team Providers Care Endorsement Clerk Name Role Phone No Ref-Primary, Physician Primary [...] on file Legal Sex Female 8:25 AM DESIGN TECH Gender Identity Not on file Sexual Orientation Not on file documented as of this encounter Plan of Treatment Not on file documented as of this encounter Goals Goal Patient Goal Type Associated Problems Recent Progress Patient-Stated? Author Pain Management General On track( 025 12:40 PM DESIGN TECH) Yes Juhi Benson, RN Note: Goal Statement: [...] on filedocumented in this encounter Care Teams Endorsement Clerk Relationship Specialty Start Date End Date No Ref-Primary, Physician PCP - General 03/15/24 06/17/24 Mor Ramsey Medical Student 04/03/24 documented as of this encounter
--- OUTSIDE RECORDS SUMMARY | 2024-06-24 20:06 | XMS_ITS | Encounter Summary ---
Author Organization [place] Address [address] [place] [address]. [place] [address] Care Team Providers Care Financial Management Analyst Name Role Phone No Ref-Primary, Physician Primary Care Provider Mor Ramsey Unavailable Unavailable Reason for Visit * Reason Comments Sickle Cell Pain Crisis Encounter Details Date Type Department Care Team (Late st Contact Info) Description 05/14/2024 10:07 PM DIRECT SUPPORT SPECIALIST - 05/15/2024 12:14 AM [facility] Emergency [facility] Emergency Room [facility] [place] [phone] Marguerite Ponce PA-C [facility] [address] [place] [id number] Sickle cell pain crisis (H) Discharge Disposition: [...] Legal Sex Female 8:25 AM DIRECT SUPPORT SPECIALIST Gender Identity Not on file Sexual Orientation Not on file documented as of this encounter Last Filed Vital Signs Vital Sign Reading Time Taken Comments Blood Pressure 113/64 05/15/2024 12:03 AM DIRECT SUPPORT SPECIALIST Pulse 97 05/15/2024 12:11 AM DIRECT SUPPORT SPECIALIST Temperature 36.7 C (98 F) 05/14/2024 9:33 PM DIRECT SUPPORT SPECIALIST Respiratory Rate 16 05/14/2024 9:33 PM DIRECT SUPPORT SPECIALIST Oxygen Saturation 94% 05/15/2024 12:11 AM DIRECT SUPPORT SPECIALIST Inhaled Oxygen Concentration - - Weight 52.2 kg (115 lb) 05/14/2024 9:33 PM DIRECT SUPPORT SPECIALIST Height 154.9 cm (5' 1) 05/14/2024 9:33 PM DIRECT SUPPORT SPECIALIST Body Mass Index 21.73 05/14/2024 9:33 PM DIRECT SUPPORT SPECIALIST documented in this encounter Discharge Instructions * Discharge Instructions* Marguerite Ponce PA-C - 05/15/2024 12:02 AM DIRECT SUPPORT SPECIALIST You were seen in the ER today [...] clinic for management of your sickle cell. CT SUPPORT SPECIALIST documented in this encounter Medications at Time [...] questions were answered. Vitally stable upon discharge. CT SUPPORT SPECIALIST * Ana Leon RN - 05/14/2024 9:35 PM CST Reports sickle cell crisis and hurts all over Seen here yesterday for same symptoms Triage Assessment (Adult) Row Name 05/14/244 Triage Assessment Airway WDL WDL Respiratory WDL Respiratory WDL WDL Skin Circulation/Temperature WDL Skin Circulation/Temperature WDL WDL Cardiac WDL Cardiac WDL WDL Peripheral/Neurovascular WDL Peripheral Neurovascular WDL WDL Cognitive/Neuro/Behavioral WDL Cognitive/Neuro/Behavioral WDL WDL CT SUPPORT SPECIALIST * Marguerite Ponce PA-C - 05/14/2024 9:33 [...] with other provider:Did you involve another provider (customer consultant, , pharmacy, etc.)?: No Discharge. No [...] 1,000 mL (0 mLs Intravenous Stopped 05/14/24 [id number]) HYDROmorphone (DILAUDID) injection 2 mg (2 mg [...] of 15:38 Rate: 97 BPM Rhythm: sinus [place]: 19 81 58 SC Interval: 142 ms QRS Interval: 80 ms [...] my direction. Marguerite Ponce PA-C Emergency Medicine [facility] Marguerite Ponce PA-C 05/15/[address] SUPPORT SPECIALIST documented in this encounter Plan of Treatment Not on file documented as of this encounter Goals Goal Patient Goal Type Associated Problems Recent Progress Patient-Stated? Author Pain Management General On track( 025 12:40 PM DIRECT SUPPORT SPECIALIST) Yes Juhi Benson, SOFIA Note: Goal Statement: [...] MANUAL DIFFERENTIAL STAT 05/14/2024 1 0:24 PM DIRECT SUPPORT SPECIALIST CBC WITH PLATELETS AND DIFFERENTIAL STAT 05/14/2024 10:24 PM DIRECT SUPPORT SPECIALIST TROPONIN T, HIGH SENSITIVITY STAT 05/14/2024 10:24 PM DIRECT SUPPORT SPECIALIST CBC WITH PLATELETS & DIFFERENTIAL STAT 05/14/2024 10:24 PM DIRECT SUPPORT SPECIALIST RETICULOCYTE COUNT STAT 05/14/2024 10 :24 PM DIRECT SUPPORT SPECIALIST HEPATIC FUNCTION PANEL STAT 05/14/2024 10:24 PM DIRECT SUPPORT SPECIALIST HCG QUALITATIVE STAT 05/14/2024 10:24 PM DIRECT SUPPORT SPECIALIST BASIC METABOLIC PANEL STAT 05/14/2024 10:24 PM DIRECT SUPPORT SPECIALIST ECG 12-LEAD WITH MUSE SJN,SJO,WWH STAT 05/14/2024 10:12 PM DIRECT SUPPORT SPECIALIST documented in this encounter Results * (ABNORMAL) Manual Differential (05/14/2024 10:24 PM DIRECT SUPPORT SPECIALIST) % Neutrophils 63 % JARET 05/14/2024 10:58 PM DIRECT SUPPORT SPECIALIST [facility] % Lymphocytes 29 % JARET 05/14/2024 10:58 PM DIRECT SUPPORT SPECIALIST [facility] % Monocytes 8 % JARET 05/14/2024 10:58 PM DIRECT SUPPORT SPECIALIST [facility] % Eosinophils 0 % JARET 05/14/2024 10:58 PM DIRECT SUPPORT SPECIALIST [facility] % Basophils 0 % JARET 05/14/2024 10:58 PM DIRECT SUPPORT SPECIALIST [facility] Absolute Neutrophils 11.3(H) 1.6 - 8.3 10e3/uL JARET 05/14/2024 10:58 PM [facility] Absolute Lymphocytes 5.2 0.8 - 5.3 10e3/uL JARET 05/14/2024 10:58 PM [facility] Absolute Monocytes 1.4(H) 0.0 - 1.3 10e3/uL JARET 05/14/2024 10:58 PM [facility] Absolute Eosinophils 0.0 0.0 - 0.7 10e3/uL JARET 05/14/2024 10:58 PM [facility] Absolute Basophils 0.0 0.0 - 0.2 10e3/uL JARET 05/14/2024 10:58 PM [facility] NRBCs per 100 WBC 1 % JARET 05/14/2024 10:58 PM [facility] Absolute NRBCs 0.2 10e3/uL JARET 05/14/2024 10:58 PM [facility] RBC Morphology Confirmed RBC Indices JARET 05/14/2024 10:58 PM [facility] Platelet Assessment Automated Count Confirmed. Platelet morphology is normal. Automated Count Confirmed. Platelet morphology is normal. JARET 05/14/2024 10:58 PM [facility] Acanthocytes Slight(A) None Seen JARET 05/14/2024 10:58 PM [facility] Elliptocytes Slight(A) None Seen JARET 05/14/2024 10:58 PM [facility] Polychromasia Slight(A) None Seen JARET 05/14/2024 10:58 PM [facility] Sickle Cells Moderate(A) None Seen [facility] 05/14/2024 10:58 PM [facility] Target Cells Slight(A) None Seen [facility] 05/14/2024 10:58 PM [facility] Blood BLOOD SPECIMEN / Unknown Venipuncture / Unknown 05/14/2024 10:24 PM [facility] 05/14/2024 10:30 PM [facility] us Marguerite Ponce PA-C LAB - BLOOD ORDERABLES Final R esult [facility] [address] [place] [address], [facility] * (ABNORMAL) CBC with platelets and differential (05/14/2024 10:24 PM DIRECT SUPPORT SPECIALIST) WBC Count 17.9(H) 4.0 - 11.0 10e3/uL 05/14/2024 10:58 PM DIRECT SUPPORT SPECIALIST [facility] RBC Count 2.32(L) 3.80 - 5.20 10e6/uL 05/14/2024 10:58 PM [facility] Hemoglobin 7.6(L) 11.7 - 15.7 g/dL 05/14/2024 10:58 PM [facility] Hematocrit 21.4(L) 35.0 - 47.0 % 05/14/2024 10:58 PM [facility] MCV 92 78 - 100 fL 05/14/2024 10:58 PM [facility] MCH 32.8 26.5 - 33.0 pg 05/14/2024 10:58 PM [facility] MCHC 35.5 31.5 - 36.5 g/dL 05/14/2024 10:58 PM [facility] RDW 24.7(H) 10.0 - 15.0 % 05/14/2024 10:58 PM [facility] Platelet Count 487(H) 150 - 450 10e3/uL 05/14/2024 10:58 PM [facility] Blood BLOOD SPECIMEN / Unknown Venipuncture / Unknown 05/14/2024 10:24 PM DIRECT SUPPORT SPECIALIST 05/14/2024 10:30 PM DIRECT SUPPORT SPECIALIST us Marguerite Ponce PA-C LAB - BLOOD ORDERABLES Final R esult [facility] [address] [place] [address], [facility] * HCG QUALitative (blood) (05/14/2024 10:24 PM DIRECT SUPPORT SPECIALIST) Pathologist [facility] hCG Serum Qualitative Negative Negative JARET 05/14/2024 10:54 PM DIRECT SUPPORT SPECIALIST [facility] Comment:This test is for scr eening purposes. Results should be interpreted along with the clinical picture. Confirmation testing is available if warranted by ordering [id number], HCG Quantitative . Blood BLOOD SPECIMEN / Unknown Venipuncture / Unknown 05/14/2024 10:24 PM DIRECT SUPPORT SPECIALIST 05/14/2024 10:30 PM DIRECT SUPPORT SPECIALIST Marguerite Ponce PA-C LAB - BLOOD ORDERABLES Final R esult Performing Organization Address [facility] Co de Phone Number [facility] [address] [place] [address] [place] [address], [facility] * Troponin T, High Sensitivity (05/14/2024 10:24 PM DIRECT SUPPORT SPECIALIST) Pathologist [facility] Emergency Department Troponin T, High Sensitivity <6 <=14 ng/L 05/14/2024 10:53 PM DIRECT SUPPORT SPECIALIST [facility] Comment: Either a High [...] Unknown Venipuncture / Unknown 05/14/2024 10:24 PM DIRECT SUPPORT SPECIALIST 05/14/2024 10:30 PM DIRECT SUPPORT SPECIALIST Marguerite Ponce PA-C LAB - BLOOD ORDERABLES Final R esult Performing Organization Address [facility] Co de Phone Number [facility] [address] [place] [address] [place] [address], [place] * (ABNORMAL) Reticulocyte count (05/14/2024 10:24 PM DIRECT SUPPORT SPECIALIST) % Reticulocyte 27.5(H) 0.5 - 2.0 % 05/14/2024 10:33 PM DIRECT SUPPORT SPECIALIST [facility] Absolute Reticulocyte 0.639(H) 0.025 - 0.095 10e6/uL 05/14/2024 10:33 PM DIRECT SUPPORT SPECIALIST [facility] Blood BLOOD SPECIMEN / Unknown Venipuncture / Unknown 05/14/2024 10:24 PM DIRECT SUPPORT SPECIALIST 05/14/2024 10:30 PM DIRECT SUPPORT SPECIALIST Marguerite Ponce PA-C LAB - BLOOD ORDERABLES Final R esult Performing Organization Address City/[facility]/ZIP Co de Phone Number [facility] [address] [place] [address] [address] [place], [place] [address], [facility] * (ABNORMAL) Hepatic function panel (05/14/2024 10:24 PM DIRECT SUPPORT SPECIALIST) Protein Total 7.9 6.4 - 8.3 g/dL 05/14/2024 10:53 PM [facility] Albumin 4.4 3.5 - 5.2 g/dL 05/14/2024 10:53 PM [facility] Bilirubin Total 2.8(H) <=1.2 mg/dL 05/14/2024 10:53 PM [facility] Alkaline Phosphatase 120 40 - 150 U/L 05/14/2024 10:53 PM [facility] AST 67(H) 0 - 45 U/L 05/14/2024 10:53 PM [facility] ALT 51(H) 0 - 50 U/L 05/14/2024 10:53 PM [facility] Bilirubin Direct 0.70(H) 0.00 - 0.30 mg/dL 05/14/2024 10:53 PM [facility] Blood BLOOD SPECIMEN / Unknown Venipuncture / Unknown 05/14/2024 10:24 PM DIRECT SUPPORT SPECIALIST 05/14/2024 10:30 PM DIRECT SUPPORT SPECIALIST us Marguerite Ponce PA-C LAB - BLOOD ORDERABLES Final R esult Performing Organization Address City/[facility]/ZIP Co de Phone Number [address] [place] [address], [facility] * Basic metabolic panel (05/14/2024 10:24 PM DIRECT SUPPORT SPECIALIST) Sodium 136 135 - 145 mmol/L 05/14/2024 10:53 PM [facility] Potassium 4.4 3.4 - 5.3 mmol/L 05/14/2024 10:53 PM [facility] Chloride 104 98 - 107 mmol/L 05/14/2024 10:53 PM [facility] Carbon Dioxide (CO2) 22 22 - 29 mmol/L 05/14/2024 10:53 PM [facility] Anion Gap 10 7 - 15 mmol/L 05/14/2024 10:53 PM [facility] Urea Nitrogen 10.5 6.0 - 20.0 mg/dL 05/14/2024 10:53 PM [facility] Creatinine 0.78 0.51 - 0.95 mg/dL 05/14/2024 10:53 PM [facility] GFR Estimate >90 >60 mL/min/1.7 3m2 05/14/2024 10:53 PM [facility] Comment:eGFR calculated usin 2020 CKD-EPI equation. Calcium 9.0 8.8 - 10.4 mg/dL 05/14/2024 10:53 PM [facility] Comment:Reference intervals for this test were updated on 11/09/2023 to reflect our healthy population more accurately. There may be differences in the flagging of prior results with similar values performed with this method. Those prior results can be interpreted in the context of the updated reference intervals. Glucose 88 70 - 99 mg/dL 05/14/2024 10:53 PM [facility] Blood BLOOD SPECIMEN / Unknown Venipuncture / Unknown 05/14/2024 10:24 PM DIRECT SUPPORT SPECIALIST 05/14/2024 10:30 PM [facility] us Marguerite Ponce PA-C LAB - BLOOD ORDERABLES Final R esult [facility] [address] [place] [address], [facility] * ECG 12-LEAD WITH MUSE (LHE) (05/14/2024 10:12 PM [facility]) Systolic Blood Pressure mmHg RADIOLOGY RESULTS Diastolic Blood Pressure mmHg RADIOLOGY RESULTS Ventricular Rate 97 BPM RAD IOLOGY RESULTS Atrial Rate 97 BPM RADIOLOG Y RESULTS SC Interval 142 ms RADIOLOG Y RESULTS QRS Duration 80 ms RADIOLO GY RESULTS QT 346 ms RADIOLOGY RESULTS QTc 439 ms RADIOLOGY RESULTS P [place] 19 degrees RADIOLOGY RESULTS R AXIS 81 degrees RADIOLOGY RESULTS T [place] 58 degrees RADIOLOGY RESULTS Interpretation ECG Sinus rhythm Nonspecific T wave abnormality Abnormal ECG When compared with ECG of 13-May-2024 15:38, No significant change was found Confirmed by SEE ED PROVIDER NOTE FOR, ECG INTERPRETATION (4000), assistant production editor SELMA GARRISON ([id number]) on 05/14/2024 11:09:33 PM RADIOLOGY RESULTS 05/14/2024 10:1 2 PM DIRECT SUPPORT SPECIALIST 05/14/2024 11:09 PM DIRECT SUPPORT SPECIALIST us Marguerite Ponce PA-C ECG ORDERABLES Edited [...] For 1 dose $Given 05/14/2024 10:45 PM DIRECT SUPPORT SPECIALIST 25 mg HYDROmorphone (DILAUDID) injection 2 mg 2 mg, Intravenous, ONCE, On 05/14/24 at 2200, For 1 dose $Given 05/14/2024 10:29 PM DIRECT SUPPORT SPECIALIST 2 mg HYDROmorphone (DILAUDID) injection 2 mg 2 mg, Intravenous, ONCE, On 05/14/24 at 2330, For 1 dose $Given 05/14/2024 11:27 PM DIRECT SUPPORT SPECIALIST 2 mg lactated ringers BOLUS 1,000 mL Intravenous, 1,000 mL, ONCE, On 05/14/24 at 2200, For 1 dose $New Bag 05/14/2024 10:29 PM DIRECT SUPPORT SPECIALIST 1,000 mLs documented in this encounter Active and Recently Administered Medications Times are shown in DIRECT SUPPORT SPECIALIST. Scheduled Medication Order 05/13/2024 05/14/2024 05/15/2024 diphenhydrAMINE [...] RN) documented in this encounter Care Teams Financial Management Analyst Relationship Specialty Start Date End Date No Ref-Primary, Physician PCP - General 03/15/24 06/17/24 Mor Ramsey Medical Student 04/03/24 documented as of this encounter
--- OUTSIDE RECORDS SUMMARY | 2024-06-24 20:06 | XMS_ITS | Encounter Summary ---
Author Organization [facility] Address [address] [place] [address] Care Team Providers Care Insulation Inspector Name Role Phone No Ref-Primary, Physician Primary Care Provider Mor Ramsey Unavailable Unavailable Case Samuel MD Unavailable [phone] Reason for Referral * Diagnostic Imaging MRI (Routine) - Pending Review Specialty Diagnoses / Procedures Referred By Shahid pendleton Referred To Contact Radiology. 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 If you don't hear from a patient representative within 2 business days, please call . Additional Information: History of hemoglobin SS disease. History of retinopathy reported from care in [place] but not in a long time. Requesting eye exam for retinopathy Comments Please be aware that coverage of these services is subject to the terms and limitations of your health insurance plan. Call member services at your health plan with any benefit or coverage questions. [facility] will call you to coordinate your care as prescribed by your provider. If you don't hear from a patient representative within 2 business days, please call . 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 Requesting eval for further management per ortho's expertise. Scheduling Instructions: [facility] Orthopedic Passenger Locomotive Engineer will call you to coordinate your care as prescribed by your provider. A patient representative will call you within 2 business days to help you schedule your appointment, or you may contact the Passenger Locomotive Engineer Manager Secondary at: . Comments Please be aware that coverage of these services is subject to the terms and limitations of your health insurance plan. Call member services at your health plan with any benefit or coverage questions. [facility] Orthopedic Passenger Locomotive Engineer will call you to coordinate your care as prescribed by your provider. A patient representative will call you within 2 business days to help you schedule your appointment, or you may contact the Passenger Locomotive Engineer Manager Secondary at: . 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 If you don t hear from a patient representative within 2 business days, please call . Additional Information: History of symptomatic gallstones due to sickle cell disease. Previous workup in [place], [place] ([facility]) prior to moving here. Was moving towards cholecystectomy but ended up moving sooner. Requesting eval for gallstones. Comments Please be aware that coverage of these services is subject to the terms and limitations of your health insurance plan. Call member services at your health plan with any benefit or coverage questions. [facility] will call you to coordinate your care as prescribed by the provider. If you don t hear from a patient representative within 2 business days, please call . ING CLERK Reason for Visit * Reason Comments Oncology Clinic Visit Sickle cell pain c risis * Consultation (Urgent: 3-5 Days) - Pending Review Specialty Diagnoses / Procedures Referred By Contac t Referred To Contact Medical Oncology Diagnoses 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 (H) Mor Ramsey Referral ID Status Reason Start Date Expiration Date V isits Requested Visits Authorized [id number] Pending Review 03/28/2024 03/28/2025 1 1 Encounter Details Date Type Department Care Team (Late st Contact Info) Description 05/01/2024 11:00 AM IMAGING CLERK Oncology Visit [facility] [address] [place] [address] Case Samuel MD [address], [address] [place] [address] History of transfusion (Primary Dx); [...] on file Legal Sex Female 8:25 AM IMAGING CLERK Gender Identity Not on file Sexual Orientation Not on file documented as of this encounter Last Filed Vital Signs Vital Sign Reading Time Taken Comments Blood Pressure 93/62 05/01/2024 10:50 AM IMAGING CLERK Pulse 93 05/01/2024 10:50 AM IMAGING CLERK Temperature 36.8 C (98.2 F) 05/01/2024 10:50 AM IMAGING CLERK Respiratory Rate 16 05/01/2024 10:50 AM IMAGING CLERK Oxygen Saturation 98% 05/01/2024 10:50 AM IMAGING CLERK Inhaled Oxygen Concentration - - Weight 51 kg (112 lb 6.4 oz) 05/01/2024 10:50 AM IMAGING CLERK Height 159.9 cm (5' 2.95) 05/01/2024 10:[address] Body Mass Index 19.94 05/01/2024 10:50 AM IMAGING CLERK documented in this encounter Progress Notes * [...] She said that she was born in [place] but moved throughout her childhood because her dad was in the . She is the youngest of 9 children she said, though she is the only one with sickle cell disease. Among other places, she was living in [place] for a time and then moved to [place]. It was there that shemet her boyfriend. She ultimately moved back to [place] and he came with her. It was there that they had a daughter Chanda, now 2 years old. That was a difficult for her, and she feelslike she never wants to be again. She was living in [place], [place] and receiving care at [facility], though she did not get the sense that chairman & co founder there was super comfortable with sickle cell [...] about 3 weeks ago. She moved to [place] about 2 months ago. Her boyfriend is [...] worked up for symptomatic gallstones back in [place], but there were some delays in getting a cholecystectomy and by the time it was getting scheduled, they were moving to [place]. She reports that she has had a [...] them both so she can be a ahin-zy-uvst mom. Sickle Cell Disease Comprehensive Checklist Stroke/silent [...] titrate as needed and notify the primary chairman & co founder via misterbnb message if changes to the plan below are needed. 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 GENERAL APPEARANCE: healthy, alert [...] she knows. Even though she lives in [place], she is very willing to come to the [place] to get her care and use the [...] around the hip and femur strong. -Orthopedic logistics project manager referral placed. Will defer to them for [...] per the note Case Samuel MD Classical Apprentice Painter Hand Division of Hematology, Oncology, and Transplantation [facility] ING CLERK ING CLERK documented in this encounter Nursing Notes * [...] mass index is 19.94 kg/m?? as calculated fromthe following: Height as of this encounter: 1.599 m (5' 2.95). Weight as of this encounter: 51 kg (112 lb 6.4 oz). Body surface area is 1.51 meters squared. Severe Pain (6) Comment: Data Unavailable No LMP recorded. Patient has had an implant. Allergies reviewed: Yes Medications reviewed: Yes Medications: MEDICATION REFILLS NEEDED TODAY. Provider was notified. Pharmacy name entered into [employer] [facility] [address] [facility] [place] [id number] [facility] - [place], [place] - [address] [facility] Frailty Screening: Is the patient here for a new oncology consult visit in cancer care? 2. No Clinical concerns: Patient states no new concerns to discuss with provider. 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) Gallstones Expected: 05/01/2024 (Approximate), Expires: 05/01/2025 Orthopedic Passenger Locomotive Engineer Referral Referral Routine: Next available opening 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 Author Pain Management General On track( 025 12:40 PM IMAGING CLERK) Yes Juhi Benson, RN Note: Goal [...] Genotype Red Blood Cell (05/29/2024 11:23 AM IMAGING CLERK) See Scanned Result GENOTYPE RED BLOOD CELL-Scanned 05/31/2024 10:16 AM IMAGING CLERK [facility] Blood VENOUS LINE / Unknown IVAD (Port) / Unknown 05/29/2024 11:23 AM IMAGING CLERK 05/29/2024 11:29 AM IMAGING CLERK us Case Samuel MD LAB - BLOOD ORDERABLES Fi nal Result [facility] [address] [place] [address], [facility] [phone] * (ABNORMAL) HGB Eval Reflex to ELP or RBC Solubility (05/29/2024 11:23 AM IMAGING CLERK) Hemoglobin A 15.0(L) 95.0 - 97.9 % 05/31/2024 2:46 PM IMAGING CLERK [facility] Hemoglobin A2 3.0 2.0 - 3.5 % 05/31/2024 2:46 PM IMAGING CLERK [facility] Hemoglobin F 10.8(H) 0.0 - 2.1 % 05/31/2024 2:46 PM IMAGING CLERK [facility] Hemoglobin S 71.2(H) 0.0 - 0.0 % 05/31/2024 2:46 PM IMAGING CLERK [facility] Hemoglobin C 0.0 0.0 - 0.0 % 05/31/2024 2:46 PM IMAGING CLERK [facility] Hemoglobin E 0.0 0.0 - 0.0 % 05/31/2024 2:46 PM IMAGING CLERK [facility] Hemoglobin - Other 0.0 0.0 - 0.0 % 05/31/2024 2:46 PM IMAGING CLERK [facility] Hemoglobin Evaluation See Note 05/31/2024 2:46 PM IMAGING CLERK [facility] Comment: Impression: Hb S present [...] by Alpha Globin (HBA1 and HBA2) Deletion/Duplication ([facility] [employer] test #[id number]) should be considered. Hb S/beta-plus thalassemia is typically characterized by more Hb S than Hb A with the presence of microcytosis. If microcytosis is present and Hb S/beta-plus thalassemia is suspected, Beta Globin (HBB) Sequencing ([employer] test #[id number]) is suggested. Hemoglobin analysis should be offered [...] developed and its performance characteristics determined by [facility]. It has not been cleared or approved by the U.S. Food and Drug Administration. This test was performed in a CLIA-certified laboratory and is intended for clinical purposes. Sickle Cell Solubility Reflex Positive(A) 05/31/2024 2:46 PM IMAGING CLERK [facility] Comment: INTERPRETIVE INFORMATION: Sickle Cell Solubility Reflex Not Performed: Solubility testing for Hemoglobin S not indicated. 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 Additional charges apply. Conf Previous: Positive for Hemoglobin S by HPLC. Solubility testing performed previously and not repeated with this submission. Hgb Capillary Electrophoresis Reflex Performed 05/31/2024 2:46 PM IMAGING CLERK [facility] Comment: INTERPRETIVE INFORMATION: Hgb Capillary Electrophoresis Reflex Not Performed: Confirmation by Capillary Electrophoresis not indicated. Performed: Results confirmed by Capillary Electrophoresis. Additional charges apply. Conf Previous: Capillary Electrophoresis confirmation performed as part of a previous submission. Confirmation not repeated with this submission. Performed By: [facility] [address] [place] [id number] Primer Supervisor: Deovn Healy MD, PhD CLIA Number: [id number] Blood VENOUS LINE / Unknown IVAD (Port) / Unknown 05/29/2024 11:23 AM IMAGING CLERK 05/29/2024 11:30 AM IMAGING CLERK Case Samuel MD LAB - BLOOD ORDERABLES Fi nal Result [facility] [address] [place] [id number], [facility] [phone] * (ABNORMAL) Ferritin (05/29/2024 11:23 AM IMAGING CLERK) Ferritin 1,559(H) 6 - 175 ng/mL 05/29/2024 12:43 PM IMAGING CLERK [facility] Blood VENOUS LINE / Unknown IVAD (Port) / Unknown 05/29/2024 11:23 AM IMAGING CLERK 05/29/2024 11:29 AM IMAGING CLERK Case Samuel MD LAB - BLOOD ORDERABLES Fi nal Result [facility] [address] 1st [place] [address] * (ABNORMAL) Routine UA with micro reflex to culture (05/29/2024 11:23 AM IMAGING CLERK) Color Urine Yellow Colorless, Straw, Light Yellow, Yellow 05/29/2024 11:41 AM IMAGING CLERK [facility] Appearance Urine Slightly Cloudy(A) Clear 05/29/2024 11:41 AM IMAGING CLERK [facility] Glucose Urine Negative Negative mg/dL 05/29/2024 11:41 AM [facility] Bilirubin Urine Negative Negative 11:41 AM [facility] Ketones Urine Negative Negative mg/dL 05/29/2024 11:41 AM [facility] Specific [place] Urine 1.013 1.003 - 1.035 05/29/2024 11:41 AM [facility] Blood Urine Negative Negative 05/29/2024 11:41 AM [facility] pH Urine 7.0 5.0 - 7.0 05/29/2024 11:41 AM IMAGING CLERK [facility] Protein Albumin Urine Negative Negative mg/dL 05/29/2024 11:41 AM [facility] Urobilinogen Urine Normal Normal, 2.0 mg/dL 05/29/2024 11:41 AM [facility] Nitrite Urine Negative Negative 05/29/2024 11:41 AM [facility] Leukocyte Esterase Urine Moderate(A) Negative 05/29/2024 11:41 AM IMAGING CLERK [facility] Mucus Urine Present(A) None Seen /LPF 05/29/2024 11:41 AM [facility] RBC Urine 6(H) <=2 /HPF 05/29/2024 11:41 AM [facility] WBC Urine 3 <=5 /HPF 05/29/2024 11:41 AM [facility] Squamous Epithelials Urine 18(H) <=1 /HPF 05/29/2024 11:41 AM [facility] Urine URINE SPECIMEN OBTAINED BY CLEAN CATCH PROCEDURE / Unknown Non-blood Collection / Unknown 05/29/2024 11:23 AM IMAGING CLERK 05/29/2024 11:29 AM IMAGING CLERK Narrative [facility] - 05/29/2024 11:41 AM IMAGING CLERK Urine Culture ordered based on laboratory criteria us Case Samuel MD LAB - URINE ORDERABLES Fi nal Result [facility] [address] [facility] 1[address] [place] [address] * (ABNORMAL) Comprehensive metabolic panel (05/29/2024 11:23 AM IMAGING CLERK) Sodium 139 135 - 145 mmol/L 05/29/2024 11:58 AM [facility] Potassium 4.2 3.4 - 5.3 mmol/L 05/29/2024 11:58 AM [facility] Carbon Dioxide (CO2) 24 22 - 29 mmol/L 05/29/2024 11:58 AM [facility] Anion Gap 10 7 - 15 mmol/L 05/29/2024 11:58 AM [facility] Urea Nitrogen 9.2 6.0 - 20.0 mg/dL 05/29/2024 11:58 AM [facility] Creatinine 0.75 0.51 - 0.95 mg/dL 05/29/2024 11:58 AM [facility] GFR Estimate >90 >60 mL/min/1.7 3m2 05/29/2024 11:58 AM [facility] Comment:eGFR calculated usin 2020 CKD-EPI equation. Calcium 8.9 8.8 - 10.4 mg/dL 05/29/2024 11:58 AM [facility] Chloride 105 98 - 107 mmol/L 05/29/2024 11:58 AM [facility] Glucose 109(H) 70 - 99 mg/dL 05/29/2024 11:58 AM [facility] Alkaline Phosphatase 83 40 - 150 U/L 05/29/2024 11:58 AM [facility] AST 49(H) 0 - 45 U/L 05/29/2024 11:58 AM [facility] ALT 21 0 - 50 U/L 05/29/2024 11:58 AM [facility] Protein Total 7.3 6.4 - 8.3 g/dL 05/29/2024 11:58 AM [facility] Albumin 4.1 3.5 - 5.2 g/dL 05/29/2024 11:58 AM [facility] Bilirubin Total 2.2(H) <=1.2 mg/dL 05/29/2024 11:58 AM [facility] Blood VENOUS LINE / Unknown IVAD (Port) / Unknown 05/29/2024 11:23 AM IMAGING CLERK 05/29/2024 11:29 AM IMAGING CLERK us Case Samuel MD LAB - BLOOD ORDERABLES Fi nal Result [facility] [address] [facility] 1[address] [place] [address] * (ABNORMAL) Reticulocyte count (05/29/2024 11:23 AM IMAGING CLERK) % Reticulocyte 29.8(H) 0.5 - 2.0 % 05/29/2024 12:00 PM IMAGING CLERK [facility] Absolute Reticulocyte 0.631(H) 0.025 - 0.095 10e6/uL 05/29/2024 12:00 PM IMAGING CLERK [facility] Blood VENOUS LINE / Unknown IVAD (Port) / Unknown 05/29/2024 11:23 AM IMAGING CLERK 05/29/2024 11:29 AM IMAGING CLERK Case Samuel MD LAB - BLOOD ORDERABLES Fi nal Result [facility] Surgery [address] 1[address] [place] [address] * (ABNORMAL) Vitamin D deficiency screening (04/28/2024 1:50 AM IMAGING CLERK) Vitamin D, Total (25-Hydroxy) 8(L) 20 - 50 ng/mL 05/01/2024 6:42 PM IMAGING CLERK [facility] Comment:severe deficiency Blood BLOOD SPECIMEN / Unknown Venipuncture / Unknown 04/28/2024 1:50 AM IMAGING CLERK 04/28/2024 1:53 AM IMAGING CLERK Narrative [facility] - 05/01/2024 6:42 PM IMAGING CLERK Season, race, dietary intake, and treatment affect the concentration of 15-tgvznra-Qkowhbt D. Values may decrease during winter months and increase during summer months. Vitamin D determination is routinely performed by an immunoassay specific for 25 hydroxyvitamin D3. If an individual is on vitamin D2(ergocalciferol) supplementation, please specify 25 [place] vitamin D2 and D3 level determination by LCMSMS test VITD23. us Case Samuel MD LAB - BLOOD ORDERABLES Fi nal Result [facility] [address] [facility], [address] [place] [id number] documented in this encounter Visit Diagnoses Diagnosis [...] Rule Out COVID-05/08/2024 05/08/2024 05/08/2024 8:18 PM IMAGING CLERK Rule Out COVID-05/16/2024 05/16/2024 05/16/2024 10:46 PM IMAGING CLERK documented as of this encounter Care Teams Insulation Inspector Relationship Specialty Start Date End Date No Ref-Primary, Physician PCP - General 03/15/24 06/17/24 Mor Ramsey Medical Student 04/03/24 Case Samuel MD [address] [place] [address] 484, [address] [place] [address] Assigned Pediatric Specialist Provider 05/18/24 documented as of this encounter
--- OUTSIDE RECORDS SUMMARY | 2024-06-24 20:07 | XMS_ITS | Encounter Summary ---
Author Organization [place] Address [address] [place] [id number] Care Team Providers Care Mixing Tank Operator Name Role Phone No Ref-Primary, Physician Primary Care Provider Mor Ramsey Unavailable Unavailable Reason for Visit * Reason Comments Sickle Cell Pain Crisis Encounter Details Date Type Department Care Team ([facility] st Contact Info) Description 05/16/2024 9:41 PM PATIENT CLERICAL ASSISTANT - 05/17/2024 12:53 AM [facility] Emergency [facility] Emergency Room [facility] [place] [address] Guille Davis, DO [address] [place] [id number] Sickle cell pain crisis (H) Discharge [...] on file Legal Sex Female 8:25 AM PATIENT CLERICAL ASSISTANT Gender Identity Not on file Sexual Orientation Not on file documented as of this encounter Last Filed Vital Signs Vital Sign Reading Time Taken Comments Blood Pressure 107/62 05/17/2024 12:00 AM PATIENT CLERICAL ASSISTANT Pulse 93 05/17/2024 12:00 AM PATIENT CLERICAL ASSISTANT Temperature 36.8 C (98.3 F) 05/16/2024 9:35 PM PATIENT CLERICAL ASSISTANT Respiratory Rate 15 05/17/2024 12:00 AM PATIENT CLERICAL ASSISTANT Oxygen Saturation 94% 05/17/2024 12:00 AM PATIENT CLERICAL ASSISTANT Inhaled Oxygen Concentration - - Weight 52.2 kg (115 lb) 05/16/2024 9:35 PM PATIENT CLERICAL ASSISTANT Height 154.9 cm (5' 1) 05/16/2024 9:35 PM PATIENT CLERICAL ASSISTANT Body Mass Index 21.73 05/16/2024 9:35 PM PATIENT CLERICAL ASSISTANT documented in this encounter Discharge Instructions * Attachments The following attachments cannot be sent through Care Everywhere. * Sickle Cell Crisis (Qatari) documented in this encounter Medications at Time [...] being printed. States she doesn't need them. ENT CLERICAL ASSISTANT * Obie Schofield RN - 05/17/2024 12:16 AM CST Pt says she'll be good for discharge after this 3rd dose of Dilaudid. Provider notified. Pt is vitally stable and pain under control and ok with the plan of care. All questions were answered. ENT CLERICAL ASSISTANT * Obie Schofield RN - 05/16/2024 11:40 PM CST Pt received 2nd dose of Dilaudid. Pt says the 1st dose has helped with her pain, bringing it down to 7/10 from 9/10. She has relief from itchiness following Benadryl as well. Pt is resting in bed, onher phone, and denies other needs at this time. On continuous pulse ox. ENT CLERICAL ASSISTANT * Guille Davis DO - 05/16/2024 9:53 [...] with other provider:Did you involve another provider (real estate consultant, , pharmacy, etc.)?: No Discharge. No [...] Currently Drug use: Never Social History Narrative [id number] mom. Recently moved to [place] from [place], [place]. She is 1 of 9 [...] Social Connections: Socially Integrated (03/28/2024) Received from [facility] [employer] [facility] Social Connections Do you [...] Xpert Xpress CoV2/Flu/RSV Assay on the [employer] GeneXpert Instrument. This test should be ordered [...] management. This test was validated by the [facility]. These laboratories are certified under the Clinical Laboratory Improvement Amendments of 1988 (CLIA-88) as qualified to perfom high complexity laboratory testing. CBC with platelets + differential Narrative The following orders were created for panel order CBC with platelets + differential. Procedure Abnormality Status --------- ------ CBC with platelets and d...[[id number]] Abnormal Final result RBC and Platelet Morphology[[id number]] Abnormal Final result Please view results for [...] on file Guille Davis D.O. Emergency Medicine [facility] EMERGENCY ROOM [facility] [facility] [address] Dept: [phone] Guille Davis DO 05/17/24 0048 ENT CLERICAL ASSISTANT * Aminata Farley RN - 05/16/2024 9:37 [...] WDL WDL Cognitive/Neuro/Behavioral WDL Cognitive/Neuro/Behavioral WDL WDL [place] Coma Scale Best Eye Response 4-->(E4) spontaneous Best Motor Response 6-->(M6) obeys commands Best Verbal Response 5-->(V5) oriented Lester Coma Scale Score 15 ENT CLERICAL ASSISTANT documented in this encounter Plan of Treatment Not on file documented as of this encounter Goals Goal Patient Goal Type Associated Problems Recent Progress Patient-Stated? Author Pain Management General On track( 025 12:40 PM PATIENT CLERICAL ASSISTANT) Yes Juhi Benson, RN Note: Goal Statement: [...] AND PLATELET MORPHOLOGY STAT 05/16/2024 10:17 PM PATIENT CLERICAL ASSISTANT CBC WITH PLATELETS AND DIFFERENTIAL STAT 05/16/2024 10:17 PM PATIENT CLERICAL ASSISTANT CBC WITH PLATELETS & DIFFERENTIAL STAT 05/16/2024 10:17 PM PATIENT CLERICAL ASSISTANT BASIC METABOLIC PANEL STAT 05/16/2024 10:17 PM PATIENT CLERICAL ASSISTANT INFLUENZA A/B, RSV AND SARS-COV2 PCR STAT 05/16/2024 10:00 PM PATIENT CLERICAL ASSISTANT documented in this encounter Results * (ABNORMAL) RBC and Platelet Morphology (05/16/2024 10:17 PM PATIENT CLERICAL ASSISTANT) Pathologist [facility] RBC Morphology Confirmed RBC Indices 05/16/2024 10:54 PM PATIENT CLERICAL ASSISTANT [facility] Platelet Assessment Automated Count Confirmed. Platelet morphology is normal. Automated Count Confirmed. Platelet morphology is normal. JARET 05/16/2024 10:54 PM PATIENT CLERICAL ASSISTANT [facility] Polychromasia Slight(A) None Seen JARET 05/16/2024 10:54 PM PATIENT CLERICAL ASSISTANT [facility] Reactive Lymphocytes Present(A) None Seen JARET 05/16/2024 10:54 PM [facility] Sickle Cells Moderate(A) None Seen JARET 05/16/2024 10:54 PM PATIENT CLERICAL ASSISTANT [facility] Target Cells Slight(A) None Seen JARET 05/16/2024 10:54 PM [facility] Blood BLOOD SPECIMEN / Unknown Venipuncture / Unknown 05/16/2024 10:17 PM PATIENT CLERICAL ASSISTANT 05/16/2024 10:24 PM PATIENT CLERICAL ASSISTANT Guille Davis DO LAB - BLOOD ORDERABLES Fin al Result [facility] [address] [place] [place] [address], [facility] * (ABNORMAL) CBC with platelets and differential (05/16/2024 10:17 PM PATIENT CLERICAL ASSISTANT) WBC Count 14.0(H) 4.0 - 11.0 10e3/uL 05/16/2024 10:50 PM [facility] RBC Count 2.40(L) 3.80 - 5.20 10e6/uL 05/16/2024 10:50 PM [facility] Hemoglobin 7.7(L) 11.7 - 15.7 g/dL 05/16/2024 10:50 PM [facility] Hematocrit 21.8(L) 35.0 - 47.0 % 05/16/2024 10:50 PM [facility] MCV 91 78 - 100 fL 05/16/2024 10:50 PM [facility] MCH 32.1 26.5 - 33.0 pg 05/16/2024 10:50 PM [facility] MCHC 35.3 31.5 - 36.5 g/dL 05/16/2024 10:50 PM [facility] RDW 22.4(H) 10.0 - 15.0 % 05/16/2024 10:50 PM [facility] Platelet Count 521(H) 150 - 450 10e3/uL 05/16/2024 10:50 PM [facility] % Neutrophils 55 % 05/16/2024 10:50 PM [facility] % Lymphocytes 25 % 05/16/2024 10:50 PM [facility] % Monocytes 16 % 05/16/2024 10:50 PM [facility] % Eosinophils 1 % 05/16/2024 10:50 PM [facility] % Basophils 1 % 05/16/2024 10:50 PM [facility] % Immature Granulocytes 1 % 05/16/2024 10:50 PM [facility] NRBCs per 100 WBC 2(H) <1 /100 025 10:50 PM [facility] Absolute Neutrophils 7.7 1.6 - 8.3 10e3/uL 05/16/2024 10:50 PM [facility] Absolute Lymphocytes 3.6 0.8 - 5.3 10e3/uL 05/16/2024 10:50 PM [facility] Absolute Monocytes 2.3(H) 0.0 - 1.3 10e3/uL 05/16/2024 10:50 PM [facility] Absolute Eosinophils 0.2 0.0 - 0.7 10e3/uL 05/16/2024 10:50 PM [facility] Absolute Basophils 0.1 0.0 - 0.2 10e3/uL 05/16/2024 10:50 PM [facility] Absolute Immature Granulocytes 0.1 <=0.4 10e3/uL 05/16/2024 10:50 PM [facility] Absolute NRBCs 0.3 10e3/uL 05/16/2024 10:50 PM [facility] Blood BLOOD SPECIMEN / Unknown Venipuncture / Unknown 05/16/2024 10:17 PM PATIENT CLERICAL ASSISTANT 05/16/2024 10:24 PM PATIENT CLERICAL ASSISTANT us Guille Davis DO LAB - BLOOD ORDERABLES Fin al Result [facility] [address] [address], [place] * (ABNORMAL) Basic metabolic panel (05/16/2024 10:17 PM PATIENT CLERICAL ASSISTANT) [facility] Sodium 138 135 - 145 mmol/L 05/16/2024 10:42 PM [facility] Potassium 4.3 3.4 - 5.3 mmol/L 05/16/2024 10:42 PM [facility] Chloride 105 98 - 107 mmol/L 05/16/2024 10:42 PM [facility] Carbon Dioxide (CO2) 22 22 - 29 mmol/L 05/16/2024 10:42 PM [facility] Anion Gap 11 7 - 15 mmol/L 05/16/2024 10:42 PM [facility] Urea Nitrogen 12.0 6.0 - 20.0 mg/dL 05/16/2024 10:42 PM [facility] Creatinine 0.80 0.51 - 0.95 mg/dL 05/16/2024 10:42 PM [facility] GFR Estimate >90 >60 mL/min/1.7 3m2 05/16/2024 10:42 PM [facility] Comment:eGFR calculated usin 2020 CKD-EPI equation. Calcium 8.7(L) 8.8 - 10.4 mg/dL 05/16/2024 10:42 PM [facility] Comment:Reference intervals for this test were updated on 11/09/2023 to reflect our healthy population more accurately. There may be differences in the flagging of prior results with similar values performed with this method. Those prior results can be interpreted in the context of the updated reference intervals. Glucose 118(H) 70 - 99 mg/dL 05/16/2024 10:42 PM [facility] Blood BLOOD SPECIMEN / Unknown Venipuncture / Unknown 05/16/2024 10:17 PM PATIENT CLERICAL ASSISTANT 05/16/2024 10:24 PM [facility] us Guille Davis DO LAB - BLOOD ORDERABLES Fin al Result [facility] [address] [place] [address], [facility] * Influenza A/B, RSV and SARS-CoV2 PCR (COVID-19) Nasopharyngeal (05/16/2024 10:00 PM PATIENT CLERICAL ASSISTANT) Influenza A PCR Negative Negative 05/16/2024 10:46 PM [facility] Influenza B PCR Negative Negative 05/16/2024 10:46 PM PATIENT CLERICAL ASSISTANT [facility] RSV PCR Negative Negative 05/16/2024 10:46 PM PATIENT CLERICAL ASSISTANT [facility] SARS CoV2 PCR Negative Negative 05/16/2024 10:46 PM PATIENT CLERICAL ASSISTANT [facility] Comment:NEGATIVE: SARS-CoV-2 (COVID-19) RNA not detected, presumed negative. Swab NASOPHARYNGEAL STRUCTURE / Unknown Non-blood Collection / Unknown 05/16/2024 10:00 PM PATIENT CLERICAL ASSISTANT 05/16/2024 10:02 PM PATIENT CLERICAL ASSISTANT [facility] - 05/16/2024 10:46 PM PATIENT CLERICAL ASSISTANT Testing was performed using the Xpert Xpress CoV2/Flu/RSV Assay on the [email or web address] Instrument. This test should be ordered for [...] management. This test was validated by the [facility]. These laboratories are certified under the Clinical Laboratory Improvement Amendments of 1988 (CLIA-88) as qualified to perfom high complexity laboratory testing. Guille Davis DO LAB - MICRO GENERAL ORDERA BLES Final Result [facility] [address] [place] [address], [facility] documented in this [...] For 1 dose $Given 05/16/2024 10:37 PM PATIENT CLERICAL ASSISTANT 50 mg HYDROmorphone (DILAUDID) injection 1 mg 1 mg, Intravenous, ONCE, On Wed05/16/24 at 2200, For 1 dose $Given 05/16/2024 10:37 PM PATIENT CLERICAL ASSISTANT 1 mg HYDROmorphone (DILAUDID) injection 1 mg 1 mg, Intravenous, ONCE, On Wed05/17/24 at 0000, For 1 dose $Given 05/16/2024 11:37 PM PATIENT CLERICAL ASSISTANT 1 mg HYDROmorphone (DILAUDID) injection 1 mg 1 mg, Intravenous, ONCE, On Wed05/17/24 at 0030, For 1 dose $Given 05/17/2024 12:13 AM PATIENT CLERICAL ASSISTANT 1 mg documented in this encounter Active and Recently Administered Medications Times are shown in PATIENT CLERICAL ASSISTANT. Scheduled Medication Order 05/15/2024 05/16/2024 05/17/2024 diphenhydrAMINE [...] Out COVID-19 05/16/2024 05/16/2024 05/16/2024 10:46 PM PATIENT CLERICAL ASSISTANT documented as of this encounter Care Teams Mixing Tank Operator Relationship Specialty Start Date End Date No Ref-Primary, Physician PCP - General 03/15/24 06/17/24 Mor Ramsey Medical Student 04/03/24 documented as of this encounter
--- OUTSIDE RECORDS SUMMARY | 2024-06-24 20:07 | XMS_ITS | Encounter Summary ---
Author Organization [facility] Address [address] [place] [address] Care Team Providers Care Harnessmaker Apprentice Name Role Phone No Ref-Primary, Physician Primary Care Provider Mor Ramsey Unavailable Unavailable Case Samuel MD Unavailable [phone] Reason for Visit * Reason Comments Sickle Cell Pain Crisis Encounter Details Date Type Department Care Team (Late st Contact Info) Description 05/19/2024 2:10 AM FIELD OPERATIONS SUPERVISOR - 05/19/2024 6:06 AM [facility] Emergency [facility] Emergency Room [facility] [place] [address] Marilia Summers MD [address] [place] [address] [phone] Sickle cell disease with crisis (H) Discharge [...] on file Legal Sex Female 8:25 AM FIELD OPERATIONS SUPERVISOR Gender Identity Not on file Sexual Orientation Not on file documented as of this encounter Last Filed Vital Signs Vital Sign Reading Time Taken Comments Blood Pressure 110/60 05/19/2024 5:30 AM FIELD OPERATIONS SUPERVISOR Pulse 89 05/19/2024 5:30 AM FIELD OPERATIONS SUPERVISOR Temperature 36.9 C (98.4 F) 05/19/2024 2:16 AM FIELD OPERATIONS SUPERVISOR Respiratory Rate 16 05/19/2024 2:16 AM FIELD OPERATIONS SUPERVISOR Oxygen Saturation 95% 05/19/2024 5:30 AM FIELD OPERATIONS SUPERVISOR Inhaled Oxygen Concentration - - Weight 51.7 kg (114 lb) 05/19/2024 2:16 AM FIELD OPERATIONS SUPERVISOR Height 160 cm (5' 3) 05/19/2024 2:16 AM FIELD OPERATIONS SUPERVISOR Body Mass Index 20.19 05/19/2024 2:16 AM FIELD OPERATIONS SUPERVISOR documented in this encounter Discharge Instructions * Discharge Instructions* Marilia Summers MD - 05/19/2024 6:02 AM FIELD OPERATIONS SUPERVISOR Keep your hematology appointment for the third. Talk with your oncologist about your pain control and what you should do about it while you wait for that appointment. Also you are still a bit more anemic than your gis software engineer would like. D OPERATIONS SUPERVISOR * Attachments The following attachments cannot [...] sleep. Took 4mg dilaudid po 3 hours RETURN AGENT. C/o 10 generalized back pain Triage Assessment [...] Docusate, Senna PRN [id number] I reviewed the [facility] database for prescriptions. Her last fill [...] still a bit more anemic than her gis software engineer would like and so I encouraged her [...] history is provided by the patient. No hockey scout was used. Gianna Hernández is a 29 [...] hCG Serum Qualitative Negative Negative Narrative Lot#: [id number] Exp: 2025-09-28 CBC with platelets and differential [...] Status --------- ------ CBC with platelets and d...[[id number]] Abnormal Final result Manual Differential[[id number]] Abnormal Final result Please view results for these tests on the individual orders. [facility] Documentation Medical Decision Making Obtained supplemental [...] another provider (workforce consultant, , pharmacy, etc.)?: I discussed the [...] my direction. Marilia Summers MD Emergency Medicine [facility] EMERGENCY ROOM Marilia Summers MD 05/19/24 0607 D OPERATIONS SUPERVISOR * Moy Stewart RN - 05/19/2024 2:18 AM CST To ED per POV C/o being in sickle cell crisis which awoke her from sleep. Took 4mg dilaudid po 3 hours RETURN AGENT. C/o 9/10 generalized back pain Triage Assessment (Adult) Row Name 05/19/24 0217 Triage Assessment Airway WDL WDL Respiratory WDL Respiratory WDL WDL Skin Circulation/Temperature WDL Skin Circulation/Temperature WDL WDL Cardiac WDL Cardiac WDL rhythm Pulse Rate & Regularity tachycardic Peripheral/Neurovascular WDL Peripheral Neurovascular WDL WDL Cognitive/Neuro/Behavioral WDL Cognitive/Neuro/Behavioral WDL WDL D OPERATIONS SUPERVISOR documented in this encounter Plan of Treatment Not on file documented as of this encounter Goals Goal Patient Goal Type Associated Problems Recent Progress Patient-Stated? Author Pain Management General On track( 025 12:40 PM FIELD OPERATIONS SUPERVISOR) Yes Juhi Benson, RN Note: Goal [...] MANUAL DIFFERENTIAL STAT 05/19/2024 3 :05 AM FIELD OPERATIONS SUPERVISOR CBC WITH PLATELETS AND DIFFERENTIAL STAT 05/19/2024 3:05 AM FIELD OPERATIONS SUPERVISOR CBC WITH PLATELETS & DIFFERENTIAL STAT 05/19/2024 3:05 AM FIELD OPERATIONS SUPERVISOR RETICULOCYTE COUNT STAT 05/19/2024 3: 05 AM FIELD OPERATIONS SUPERVISOR HEPATIC FUNCTION PANEL STAT 05/19/2024 3:05 AM FIELD OPERATIONS SUPERVISOR HCG QUALITATIVE STAT 05/19/2024 3:05 AM FIELD OPERATIONS SUPERVISOR CK TOTAL STAT 05/19/2024 3:05 AM FIELD OPERATIONS SUPERVISOR BASIC METABOLIC PANEL STAT 05/19/2024 3:05 AM FIELD OPERATIONS SUPERVISOR documented in this encounter Results * (ABNORMAL) Manual Differential (05/19/2024 3:05 AM [facility]) Pathologist [facility] % Neutrophils 66 % JARET 05/19/2024 4:12 AM [facility] % Lymphocytes 19 % JARET 05/19/2024 4:12 AM [facility] % Monocytes 11 % JARET 05/19/2024 4:12 AM [facility] % Eosinophils 2 % JARET 05/19/2024 4:12 AM [facility] % Basophils 2 % JARET 05/19/2024 4:12 AM [facility] Absolute Neutrophils 9.6(H) 1.6 - 8.3 10e3/uL JARET 05/19/2024 4:12 AM [facility] Absolute Lymphocytes 2.8 0.8 - 5.3 10e3/uL JARET 05/19/2024 4:12 AM [facility] Absolute Monocytes 1.6(H) 0.0 - 1.3 10e3/uL JARET 05/19/2024 4:12 AM [facility] Absolute Eosinophils 0.3 0.0 - 0.7 10e3/uL JARET 05/19/2024 4:12 AM [facility] Absolute Basophils 0.3(H) 0.0 - 0.2 10e3/uL JARET 05/19/2024 4:12 AM [facility] RBC Morphology Confirmed RBC Indices JARET 05/19/2024 4:12 AM [facility] Platelet Assessment Automated Count Confirmed. Platelet morphology is normal. Automated Count Confirmed. Platelet morphology is normal. JARET 05/19/2024 4:12 AM [facility] Elliptocytes Slight(A) None Seen JARET 05/19/2024 4:12 AM [facility] RBC Fragments Rare(A) None Seen JARET 05/19/2024 4:12 AM [facility] Polychromasia Slight(A) None Seen JARET 05/19/2024 4:12 AM [facility] Sickle Cells Slight(A) None Seen JARET 05/19/2024 4:12 AM [facility] Target Cells Slight(A) None Seen JARET 05/19/2024 4:12 AM [facility] Blood VENOUS LINE / Unknown Venipuncture / Unknown 05/19/2024 3:05 AM [facility] 05/19/2024 3:18 AM FIELD OPERATIONS SUPERVISOR us Marilia Summers MD LAB - BLOOD ORDERABLES Final Result [facility] [address] [place] [address], [facility] * (ABNORMAL) CBC with platelets and differential (05/19/2024 3:05 AM FIELD OPERATIONS SUPERVISOR) [facility] WBC Count 14.5(H) 4.0 - 11.0 10e3/uL 05/19/2024 4:12 AM [facility] RBC Count 2.45(L) 3.80 - 5.20 10e6/uL 05/19/2024 4:12 AM [facility] Hemoglobin 7.7(L) 11.7 - 15.7 g/dL 05/19/2024 4:12 AM [facility] Hematocrit 22.7(L) 35.0 - 47.0 % 05/19/2024 4:12 AM [facility] MCV 93 78 - 100 fL 05/19/2024 4:12 AM [facility] MCH 31.4 26.5 - 33.0 pg 05/19/2024 4:12 AM [facility] MCHC 33.9 31.5 - 36.5 g/dL 05/19/2024 4:12 AM [facility] RDW 23.0(H) 10.0 - 15.0 % 05/19/2024 4:12 AM [facility] Platelet Count 518(H) 150 - 450 10e3/uL 05/19/2024 4:12 AM [facility] Blood VENOUS LINE / Unknown Venipuncture / Unknown 05/19/2024 3:05 AM FIELD OPERATIONS SUPERVISOR 05/19/2024 3:18 AM FIELD OPERATIONS SUPERVISOR us Marilia Summers MD LAB - BLOOD ORDERABLES Final Result [facility] [address] [place] [address], [facility] * HCG QUALitative (blood) (05/19/2024 3:05 AM FIELD OPERATIONS SUPERVISOR) [facility] hCG Serum Qualitative Negative Negative JARET 05/19/2024 3:29 AM [facility] Comment:This test is for scr eening purposes. Results should be interpreted along with the clinical picture. Confirmation testing is available if warranted by ordering [id number], HCG Quantitative . Blood VENOUS LINE / Unknown Venipuncture / Unknown 05/19/2024 3:05 AM FIELD OPERATIONS SUPERVISOR 05/19/2024 3:18 AM FIELD OPERATIONS SUPERVISOR Narrative [facility] - 05/19/2024 3:29 AM [facility] Lot#: [id number] Exp: 2025-09-28 Marilia Summers MD LAB - BLOOD ORDERABLES Final Result Performing Organization Address City/[facility]/ZIP Co de Phone Number [facility] [address] [place] [address] * (ABNORMAL) CK total (05/19/2024 3:05 AM FIELD OPERATIONS SUPERVISOR) [facility] CK 240(H) 26 - 192 U/L 05/19/2024 3:37 AM [facility] Blood VENOUS LINE / Unknown Venipuncture / Unknown 05/19/2024 3:05 AM FIELD OPERATIONS SUPERVISOR 05/19/2024 3:18 AM FIELD OPERATIONS SUPERVISOR Marilia Summers MD LAB - BLOOD ORDERABLES Final Result Performing Organization Address City/[facility]/ZIP Co de Phone Number [facility] [address] [place] [address] * (ABNORMAL) Hepatic function panel (05/19/2024 3:05 AM FIELD OPERATIONS SUPERVISOR) [facility] Protein Total 7.9 6.4 - 8.3 g/dL 05/19/2024 3:37 AM [facility] Albumin 4.3 3.5 - 5.2 g/dL 05/19/2024 3:37 AM [facility] Bilirubin Total 2.6(H) <=1.2 mg/dL 05/19/2024 3:37 AM [facility] Alkaline Phosphatase 128 40 - 150 U/L 05/19/2024 3:37 AM [facility] AST 67(H) 0 - 45 U/L 05/19/2024 3:37 AM [facility] ALT 39 0 - 50 U/L 05/19/2024 3:37 AM [facility] Bilirubin Direct 0.65(H) 0.00 - 0.30 mg/dL 05/19/2024 3:37 AM [facility] Blood VENOUS LINE / Unknown Venipuncture / Unknown 05/19/2024 3:05 AM [facility] 05/19/2024 3:18 AM [facility] us Marilia Summers MD LAB - BLOOD ORDERABLES Final Result [facility] [address] [place] [address], [facility] * (ABNORMAL) Basic metabolic panel (05/19/2024 3:05 AM [facility]) Sodium 137 135 - 145 mmol/L 05/19/2024 3:37 AM [facility] Potassium 4.2 3.4 - 5.3 mmol/L 05/19/2024 3:37 AM [facility] Chloride 107 98 - 107 mmol/L 05/19/2024 3:37 AM [facility] Carbon Dioxide (CO2) 20(L) 22 - 29 mmol/L 05/19/2024 3:37 AM [facility] Anion Gap 10 7 - 15 mmol/L 05/19/2024 3:37 AM [facility] Urea Nitrogen 11.2 6.0 - 20.0 mg/dL 05/19/2024 3:37 AM [facility] Creatinine 0.81 0.51 - 0.95 mg/dL 05/19/2024 3:37 AM [facility] GFR Estimate >90 >60 mL/min/1.7 3m2 05/19/2024 3:37 AM [facility] Comment:eGFR calculated usin 2020 CKD-EPI equation. Calcium 9.1 8.8 - 10.4 mg/dL 05/19/2024 3:37 AM [facility] Comment:Reference intervals for this test were updated on 11/09/2023 to reflect our healthy population more accurately. There may be differences in the flagging of prior results with similar values performed with this method. Those prior results can be interpreted in the context of the updated reference intervals. Glucose 99 70 - 99 mg/dL 05/19/2024 3:37 AM [facility] Blood VENOUS LINE / Unknown Venipuncture / Unknown 05/19/2024 3:05 AM FIELD OPERATIONS SUPERVISOR 05/19/2024 3:18 AM FIELD OPERATIONS SUPERVISOR Marilia Summers MD LAB - BLOOD ORDERABLES Final Result Performing Organization Address [facility] de Phone Number [facility] [address] [place] [address] PR[place] Munoz [id number], [facility] * (ABNORMAL) Reticulocyte count (05/19/2024 3:05 AM FIELD OPERATIONS SUPERVISOR) [facility] % Reticulocyte 23.3(H) 0.5 - 2.0 % 05/19/2024 3:47 AM [facility] Absolute Reticulocyte 0.550(H) 0.025 - 0.095 10e6/uL 05/19/2024 3:47 AM [facility] Blood VENOUS LINE / Unknown Venipuncture / Unknown 05/19/2024 3:05 AM FIELD OPERATIONS SUPERVISOR 05/19/2024 3:18 AM FIELD OPERATIONS SUPERVISOR Marilia Summers MD LAB - BLOOD ORDERABLES Final Result Performing Organization Address [facility] de Phone Number [facility] [address] [place] [address] PROSPER Munoz [facility], [facility] [...] For 1 dose $Given 05/19/2024 3:10 AM FIELD OPERATIONS SUPERVISOR 25 mg diphenhydrAMINE (BENADRYL) injection 25 mg 25 mg, Intravenous, ONCE, On Wed05/19/24 at 0530, For 1 dose $Given 05/19/2024 5:17 AM FIELD OPERATIONS SUPERVISOR 25 mg HYDROmorphone (DILAUDID) injection 2 mg 2 mg, Intravenous, EVERY 1 HOUR PRN, moderate pain, Starting on Wed05/19/24 at 0241, For 3 doses $Given 05/19/2024 5:30 AM FIELD OPERATIONS SUPERVISOR 2 mg $Given 05/19/2024 4:19 AM FIELD OPERATIONS SUPERVISOR 2 mg $Given 05/19/2024 3:10 AM FIELD OPERATIONS SUPERVISOR 2 mg lactated ringers BOLUS 1,000 mL Intravenous, 1,000 mL, ONCE, at 500 mL/hr, Administer over 2 Hours, On Wed05/19/24 at 0300, For 1 dose Rate/Dose Verify 05/19/2024 4:24 AM FIELD OPERATIONS SUPERVISOR 500 mL/hr $New Bag 05/19/2024 3:15 AM FIELD OPERATIONS SUPERVISOR 1,000 mLs 500 mL/hr ondansetron (ZOFRAN) injection 8 mg 8 mg, Intravenous, ONCE, Administer over 2-5 Minutes, On Wed05/19/24 at 0530, For 1 dose $Given 05/19/2024 5:17 AM FIELD OPERATIONS SUPERVISOR 8 mg documented in this encounter Active and Recently Administered Medications Times are shown in FIELD OPERATIONS SUPERVISOR. Scheduled Medication Order 05/17/2024 05/18/2024 05/19/2024 diphenhydrAMINE [...] RN) documented in this encounter Care Teams Harnessmaker Apprentice Relationship Specialty Start Date End Date No Ref-Primary, Physician PCP - General 03/15/24 06/17/24 Mor Ramsey Medical Student 04/03/24 Case Samuel MD [address] [place] [address], [address] [place] [address] Assigned Pediatric Specialist Provider 05/18/24 documented as of this encounter
--- OUTSIDE RECORDS SUMMARY | 2024-06-24 20:07 | XMS_ITS | Encounter Summary ---
Author Organization [facility] Address Critical access hospital0 [facility] [place] [address] Care Team Providers Care Primary Care Provider Name Role Phone No Ref-Primary, Physician Primary [...] on file Legal Sex Female 8:25 AM DOCUMENT REVIEWER Gender Identity Not on file Sexual Orientation Not on file documented as of this encounter Plan of Treatment Not on file documented as of this encounter Goals Goal Patient Goal Type Associated Problems Recent Progress Patient-Stated? Author Pain Management General On track( 025 12:40 PM DOCUMENT REVIEWER) Yes Juhi Benson, RN Note: Goal Statement: [...] on filedocumented in this encounter Care Teams Primary Care Provider Relationship Specialty Start Date End Date No Ref-Primary, Physician PCP - General 03/15/24 06/17/24 Mor Ramsey Medical Student 04/03/24 documented as of this encounter
--- OUTSIDE RECORDS SUMMARY | 2024-06-24 20:08 | XMS_ITS | Encounter Summary ---
Author Organization [facility] Address [address] [place] [address]. [place] [address] Care Team Providers Care Tariff Inspector Name Role Phone No Ref-Primary, Physician Primary Care Provider Mor Ramsey Unavailable Unavailable Case Samuel MD Unavailable [phone] Reason for Visit * Reason Comments Chest Pain Encounter Details Date Type Department Care Team (Late st Contact Info) Description 05/27/2024 11:58 AM BUCKLE AND BUTTON MAKER - 05/27/2024 6:07 PM [facility] Emergency [facility] Emergency Room [facility] [place] [phone] Blas Mcclellan MD [address] [place] [address] Marly Gross, DO [facility] [address] [place] [id number] Sickle cell disease with crisis (H) Discharge [...] on file Legal Sex Female 8:25 AM BUCKLE AND BUTTON MAKER Gender Identity Not on file Sexual Orientation Not on file documented as of this encounter Last Filed Vital Signs Vital Sign Reading Time Taken Comments Blood Pressure 123/76 05/27/2024 5:15 PM BU[employer]LE AND BUTTON MAKER Pulse 97 05/27/2024 5:15 PM BU[employer]LE AND BUTTON MAKER Temperature 36.9 C (98.5 F) 05/27/2024 11:57 AM BUCKLE AND BUTTON MAKER Respiratory Rate 24 05/27/2024 5:37 PM BUCKLE AND BUTTON MAKER Oxygen Saturation 96% 05/27/2024 5:15 PM BUCKLE AND BUTTON MAKER Inhaled Oxygen Concentration - - Weight 51.7 kg (114 lb) 05/27/2024 11:56 AM BUCKLE AND BUTTON MAKER Height 154.9 cm (5' 1) 05/27/2024 11:56 AM BUCKLE AND BUTTON MAKER Body Mass Index 21.54 05/27/2024 11:56 AM BUCKLE AND BUTTON MAKER documented in this encounter Discharge Instructions * Attachments The following attachments cannot be sent through Care Everywhere. * Sickle Cell Crisis (Zambian) documented in this encounter Medications at Time [...] Hemoglobin 7.1. [facility] Course Timeline: 5:01 PM I introduced myself to the patient. She would like her last dose of dilaudid per care plan and is comfortable with being discharged home afterwards. She has follow up with her Curing Oven Attendant in2 days which I encouraged her to [...] on file Marly Gross DO Emergency Medicine [facility] EMERGENCY ROOM [address] [facility] [phone] Marly Gross DO 05/27/24 [id number] LE AND BUTTON MAKER * Blas Mcclellan MD - 05/27/2024 12:32 [...] reviewed?: Documented in chart and Outpatient Record: [facility] ED 05/23/2024 and [facility] visit 05/25/2024 Care impacted by chronic illness:Documented in Chart Did you consider but not order tests?: Work up considered but not performed and documented in chart, if applicable Did you interpret images independently?: Independent interpretation of ECG and images noted in documentation, when applicable. Consultation discussion with other provider:Did you involve another provider (executive search consultant, , pharmacy, etc.)?: No Admission considered. 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 Per chart review, patient was seen by oncology at [facility] on 05/01/2024 for new outpatient hematology visit for initiation of care for sickle cell disease. [facility] [place] She reported [...] had 2 ports placed on 05/25/2024 at [facility]. Apheresis on the right, 6 serbian smart port on the left. Patient tolerated [...] Currently Drug use: Never Social History Narrative Ivym-wv-[id number] mom. Recently moved to [place] from [place], [place]. She is 1 of 9 [...] Socially Integrated (03/28/2024) [facility] Social [facility]ctions Do you often feel lonely [...] was found. Rate: 91 bpm Rhythm: Sinus Rule: 39 62 23 MS Interval: 142 ms QRS Interval: 80 ms [...] my direction. Blas Mcclellan M.D. Emergency Medicine [facility] EMERGENCY ROOM [address] [place] [phone] Dept: [phone] Blas Mcclellan MD 05/27/24 1507 LE AND BUTTON MAKER * Yanely Avendano RN - 05/27/2024 12:02 [...] WDL WDL Cognitive/Neuro/Behavioral WDL Cognitive/Neuro/Behavioral WDL WDL LE AND BUTTON MAKER documented in this encounter Plan of Treatment Not on file documented as of this encounter Goals Goal Patient Goal Type Associated Problems Recent Progress Patient-Stated? Author Pain Management General On track( 025 12:40 PM BUCKLE AND BUTTON MAKER) Yes Juhi Benson, RN Note: Goal [...] MANUAL DIFFERENTIAL STAT 05/27/2024 3 :13 PM BUCKLE AND BUTTON MAKER CBC WITH PLATELETS AND DIFFERENTIAL STAT 05/27/2024 3:13 PM BU[employer]LE AND BUTTON MAKER CBC WITH PLATELETS & DIFFERENTIAL STAT 05/27/2024 3:13 PM BU[employer]LE AND BUTTON MAKER RETICULOCYTE COUNT STAT 05/27/2024 3: 13 PM BU[employer]LE AND BUTTON MAKER XR CHEST 2 VIEWS STAT 05/27/2024 2:57 PM BU[employer]LE AND BUTTON MAKER COMPREHENSIVE METABOLIC PANEL STAT 05/27/2024 2:30 PM BU[employer]LE AND BUTTON MAKER ECG 12-LEAD WITH MUSE SJN,SJO,WWH STAT 05/27/2024 12:12 PM BUCKLE AND BUTTON MAKER documented in this encounter Results * (ABNORMAL) Manual Differential (05/27/2024 3:13 PM BUCKLE AND BUTTON MAKER) Pathologist [facility] % Neutrophils 71 % JARET 05/27/2024 3:51 PM BUCKLE AND BUTTON MAKER [facility] % Lymphocytes 20 % JARET 05/27/2024 3:51 PM BU[employer]LE AND BUTTON MAKER [facility] % Monocytes 9 % JARET 05/27/2024 3:51 PM [facility] % Eosinophils 0 % JARET 05/27/2024 3:51 PM [facility] % Basophils 0 % JARET 05/27/2024 3:51 PM [facility] Absolute Neutrophils 11.1(H) 1.6 - 8.3 10e3/uL JARET 05/27/2024 3:51 PM [facility] Absolute Lymphocytes 3.1 0.8 - 5.3 10e3/uL JARET 05/27/2024 3:51 PM [facility] Absolute Monocytes 1.4(H) 0.0 - 1.3 10e3/uL JARET 05/27/2024 3:51 PM [facility] Absolute Eosinophils 0.0 0.0 - 0.7 10e3/uL JARET 05/27/2024 3:51 PM BUCKLE AND BUTTON MAKER [facility] Absolute Basophils 0.0 0.0 - 0.2 10e3/uL JARET 05/27/2024 3:51 PM [facility] RBC Morphology Confirmed RBC Indices JARET 05/27/2024 3:51 PM [facility] Platelet Assessment Automated Count Confirmed. Platelet morphology is normal. Automated Count Confirmed. Platelet morphology is normal. JARET 05/27/2024 3:51 PM [facility] Acanthocytes Slight(A) None Seen JARET 05/27/2024 3:51 PM [facility] Elliptocytes Slight(A) None Seen JARET 05/27/2024 3:51 PM [facility] RBC Fragments Slight(A) None Seen JARET 05/27/2024 3:51 PM [facility] Polychromasia Slight(A) None Seen JARET 05/27/2024 3:51 PM [facility] Sickle Cells Moderate(A) None Seen JARET 05/27/2024 3:51 PM [facility] Target Cells Slight(A) None Seen JARET 05/27/2024 3:51 PM [facility] Blood (Portacath) Venipuncture / Unknown 05/27/2024 3:13 PM BUCKLE AND BUTTON MAKER 05/27/2024 3:15 PM [facility] Blas Mcclellan MD LAB - BLOOD ORDERABLES Final Result [facility] [address] [place] [address], [facility] * (ABNORMAL) CBC with platelets and differential (05/27/2024 3:13 PM BUCKLE AND BUTTON MAKER) WBC Count 15.7(H) 4.0 - 11.0 10e3/uL 05/27/2024 3:48 PM [facility] RBC Count 2.21(L) 3.80 - 5.20 10e6/uL 05/27/2024 3:48 PM [facility] Hemoglobin 7.1(L) 11.7 - 15.7 g/dL 05/27/2024 3:48 PM [facility] Hematocrit 20.2(L) 35.0 - 47.0 % 05/27/2024 3:48 PM [facility] MCV 91 78 - 100 fL 05/27/2024 3:48 PM [facility] MCH 32.1 26.5 - 33.0 pg 05/27/2024 3:48 PM [facility] MCHC 35.1 31.5 - 36.5 g/dL 05/27/2024 3:48 PM [facility] RDW 23.0(H) 10.0 - 15.0 % 05/27/2024 3:48 PM [facility] Platelet Count 429 150 - 450 10e3/uL 05/27/2024 3:48 PM [facility] Blood (Portacath) Venipuncture / Unknown 05/27/2024 3:13 PM BU[employer]LE AND BUTTON MAKER 05/27/2024 3:15 PM [facility] us Blas Mcclellan MD LAB - BLOOD ORDERABLES Final Result [facility] [address] [place] [address], [facility] * (ABNORMAL) Reticulocyte count (05/27/2024 3:13 PM BUCKLE AND BUTTON MAKER) % Reticulocyte 28.0(H) 0.5 - 2.0 % 05/27/2024 3:19 PM BUCKLE AND BUTTON MAKER [facility] Absolute Reticulocyte 0.619(H) 0.025 - 0.095 10e6/uL 05/27/2024 3:19 PM BUCKLE AND BUTTON MAKER [facility] Blood (Portacath) Venipuncture / Unknown 05/27/2024 3:13 PM BU[employer]LE AND BUTTON MAKER 05/27/2024 3:15 PM [employer] AND BUTTON MAKER Blas Mcclellan MD LAB - BLOOD ORDERABLES Final Result [facility] [address] [place] [address], [facility] * Chest XR, PA & LAT (05/27/2024 2:57 PM BUCKLE AND BUTTON MAKER) Anatomical Region Laterality Modality Chest Digital Radiogra phy 05/27/2024 2:57 PM BU[employer]LE AND BUTTON MAKER Impressions 05/27/2024 3:03 PM BUCKLE AND BUTTON MAKER IMPRESSION: New right and left chest ports, with catheter tips at the superior cavoatrial junction. Unchanged patchy opacities in the right greater mid to lower lungs. No consolidation or pleural effusion. Stable mediastinal silhouette. Narrative 05/27/2024 3:03 PM BUCKLE AND BUTTON MAKER EXAM: XR CHEST 2 VIEWS LOCATION: [facility] DATE: 05/27/2024 INDICATION: chest pain, sickle cell, bilateral port placement 3 days ago COMPARISON: 05/22/2024 Procedure Note Rachel Joe MD - 05/27/2024 EXAM: XR CHEST 2 VIEWS LOCATION: [facility] DATE: 05/27/2024 INDICATION: chest pain, sickle [...] (ABNORMAL) Comprehensive metabolic panel (05/27/2024 2:30 PM BUCKLE AND BUTTON MAKER) [facility] Sodium 136 135 - 145 mmol/L 05/27/2024 2:59 PM [facility] Potassium 4.8 3.4 - 5.3 mmol/L 05/27/2024 2:59 PM [facility] Carbon Dioxide (CO2) 18(L) 22 - 29 mmol/L 05/27/2024 2:59 PM [facility] Anion Gap 12 7 - 15 mmol/L 05/27/2024 2:59 PM [facility] Urea Nitrogen 8.4 6.0 - 20.0 mg/dL 05/27/2024 2:59 PM [facility] Creatinine 0.67 0.51 - 0.95 mg/dL 05/27/2024 2:59 PM [facility] GFR Estimate >90 >60 mL/min/1.7 3m2 05/27/2024 2:59 PM [facility] Comment:eGFR calculated us2020 CKD-EPI equation. Calcium 9.3 8.8 - 10.4 mg/dL 05/27/2024 2:59 PM [facility] Chloride 106 98 - 107 mmol/L 05/27/2024 2:59 PM [facility] Glucose 97 70 - 99 mg/dL 05/27/2024 2:59 PM [facility] Alkaline Phosphatase 94 40 - 150 U/L 05/27/2024 2:59 PM [facility] AST 51(H) 0 - 45 U/L 05/27/2024 2:59 PM [facility] ALT 19 0 - 50 U/L 05/27/2024 2:59 PM [facility] Protein Total 7.7 6.4 - 8.3 g/dL 05/27/2024 2:59 PM [facility] Albumin 4.4 3.5 - 5.2 g/dL 05/27/2024 2:59 PM [facility] Bilirubin Total 2.7(H) <=1.2 mg/dL 05/27/2024 2:59 PM [facility] Blood VENOUS LINE / Unknown Venipuncture / Unknown 05/27/2024 2:30 PM BU[employer] AND BUTTON MAKER 05/27/2024 2:36 PM [facility] Blas Mcclellan MD LAB - BLOOD ORDERABLES Final Result [facility] [address] [place] [address], [facility] * ECG 12-LEAD WITH MUSE (LHE) (05/27/2024 12:12 PM BUCKLE AND BUTTON MAKER) Systolic Blood Pressure 110 mmHg RADIOLOGY RESULTS Diastolic Blood Pressure 63 mmHg RADIOLOGY RESULTS Ventricular Rate 91 BPM RAD IOLOGY RESULTS Atrial Rate 91 BPM RADIOLOG Y RESULTS MS Interval 142 ms RADIOLOG Y RESULTS QRS Duration 80 ms RADIOLO GY RESULTS QT 352 ms RADIOLOGY RESULTS QTc 432 ms RADIOLOGY RESULTS P Rule 39 degrees RADIOLOGY RESULTS R AXIS 62 degrees RADIOLOGY RESULTS T Rule 23 degrees RADIOLOGY RESULTS Interpretation ECG Sinus rhythm Nonspecific T wave abnormality Abnormal ECG When compared with ECG of 23-May-2024 18:54, Nonspecific T wave abnormality now evident in Inferior leads Nonspecific T wave abnormality now evident in Anterior leads Confirmed by SEE ED PROVIDER NOTE FOR, ECG INTERPRETATION (4000), production editor BEN PRAKASH ([id number]) on 05/27/2024 12:22:37 PM RADIOLOGY RESULTS 05/27/2024 12:1 2 PM BU[employer]LE AND BUTTON MAKER 05/27/2024 12:22 PM [employer]TON [employer] us Blas Mcclellan MD ECG ORDERABLES Edited [...] For 1 dose $Given 05/27/2024 4:34 PM BU[employer]LE AND BUTTON MAKER 25 mg heparin lock flush 100 unit/mL injection 5 mL 5 mL, Intracatheter, ONCE, On 05/27/24 at 1730, For 1 dose $Given 05/27/2024 5:33 PM BU[employer]LE AND BUTTON MAKER 5 mLs HYDROmorphone (DILAUDID) injection 2 mg 2 mg, Intravenous, ONCE, On 05/27/24 at 1300, For 1 dose $Given 05/27/2024 2:43 PM BU[employer]LE AND BUTTON MAKER 2 mg HYDROmorphone (DILAUDID) injection 2 mg 2 mg, Intravenous, ONCE, On 05/27/24 at 1630, For 1 dose $Given 05/27/2024 4:37 PM BU[employer]LE AND BUTTON MAKER 2 mg HYDROmorphone (DILAUDID) injection 2 mg 2 mg, Intravenous, ONCE, On 05/27/24 at 1730, For 1 dose $Given 05/27/2024 5:09 PM BU[employer]LE AND BUTTON MAKER 2 mg lactated ringers BOLUS 1,000 mL Intravenous, 1,000 mL, ONCE, On 05/27/24 at 1300, For 1 dose $New Bag 05/27/2024 2:33 PM BUCKLE AND BUTTON MAKER 1,000 mLs ondansetron (ZOFRAN) injection 8 mg 8 mg, Intravenous, ONCE, Administer over 2-5 Minutes, On 05/27/24 at 1300, For 1 dose $Given 05/27/2024 2:40 PM BUCKLE AND BUTTON MAKER 8 mg documented in this encounter Active and Recently Administered Medications Times are shown in BU[employer]LE [employer] BUTTON [employer]KER. Scheduled Medication Order 05/25/2024 05/26/2024 05/27/2024 diphenhydrAMINE [...] SOFIA) documented in this encounter Care Teams Tariff Inspector Relationship Specialty Start Date End Date No Ref-Primary, Physician PCP - General 03/15/24 06/17/24 Mor Ramsey Medical Student 04/03/24 Case Samuel MD [address] [place] [address], [address] [place] [address] Assigned Pediatric Specialist Provider 05/18/24 documented as of this encounter
--- OUTSIDE RECORDS SUMMARY | 2024-06-24 20:08 | XMS_ITS | Encounter Summary ---
Author Organization [facility] Address [address] [place] [address]. [place] [address] Care Team Providers Care School Crossing Guard Name Role Phone No Ref-Primary, Physician Primary Care Provider Mor Ramsey Unavailable Unavailable Case Samuel MD Unavailable [phone] Encounter Details Date Type Department Care Team [...] on file Legal Sex Female 8:25 AM RAIL ASSEMBLER Gender Identity Not on file Sexual Orientation Not on file documented as of this encounter Plan of Treatment Not on file documented as of this encounter Goals Goal Patient Goal Type Associated Problems Recent Progress Patient-Stated? Author Pain Management General On track( 025 12:40 PM RAIL ASSEMBLER) Yes Juhi Benson, RN Note: Goal Statement: [...] on filedocumented in this encounter Care Teams School Crossing Guard Relationship Specialty Start Date End Date No Ref-Primary, Physician PCP - General 03/15/24 06/17/24 Mor Ramsey Medical Student 04/03/24 Case Samuel MD [address] [place] [address], [address] [place] [address] Assigned Pediatric Specialist Provider 05/18/24 documented as of this encounter
--- OUTSIDE RECORDS SUMMARY | 2024-06-24 20:08 | XMS_ITS | Encounter Summary ---
Author Organization [facility] Address [address] [place] [id number] Care Team Providers Care Arts And Crafts Instructor Name Role Phone No Ref-Primary, Physician Primary Care Provider Mor Ramsey Unavailable Unavailable Case Samuel MD Unavailable [phone] Reason for Visit * Reason Comments Abdominal Pain ULQ Encounter Details Date Type Department Care Team (Late st Contact Info) Description 05/23/2024 9:03 PM FIELD SALES CONSULTANT - 05/23/2024 11:37 PM [facility] Emergency [facility] [place] [address] Marilia Summers MD [address] [place] [address] [phone] Sickle cell pain crisis (H); Leukocytosis, unspecified [...] file Legal Sex Female 8:25 AM FIELD SALES CONSULTANT Gender Identity Not on file Sexual Orientation Not on file documented as of this encounter Last Filed Vital Signs Vital Sign Reading Time Taken Comments Blood Pressure 123/71 05/23/2024 9:53 PM FIELD SALES CONSULTANT Pulse 95 05/23/2024 9:53 PM FIELD SALES CONSULTANT Temperature 37.7 C (99.9 F) 05/23/2024 4:48 PM FIELD SALES CONSULTANT Respiratory Rate 18 05/23/2024 4:48 PM FIELD SALES CONSULTANT Oxygen Saturation 98% 05/23/2024 9:53 PM FIELD SALES CONSULTANT Inhaled Oxygen Concentration - - Weight 51.7 kg (114 lb) 05/23/2024 4:48 PM FIELD SALES CONSULTANT Height 154.9 cm (5' 1) 05/23/2024 4:48 PM FIELD SALES CONSULTANT Body Mass Index 21.54 05/23/2024 4:48 PM FIELD SALES CONSULTANT documented in this encounter Discharge Instructions * Discharge Instructions* Marilia Summers MD - 05/23/2024 10:34 PM FIELD SALES CONSULTANT Keep your appointment for your port in 2 days. Continue to work with oncology/hematology on pain control. The Lidoderm patch helps with the area of pain underneath your left breast on the chest wall, you can get [id number]-[id number] muscle pain patches that have the same numbing medicine in them and put it on for 12 hours at a time to help with your discomfort. Obviously return to the emergency department as needed if you are having difficulty with breathing. D SALES CONSULTANT * Attachments The following attachments cannot be sent through Care Everywhere. * Sickle Cell Crisis (Turkmen) documented in this encounter Medications at Time [...] /chest pain. Seen for similar last night D SALES CONSULTANT * Marilia Summers MD - 05/23/2024 6:24 [...] she notes the plan discussed with the oncologist/finish carpenter is to do 3 times a week [...] of chest pain. Misti moved here from [facility] a few[facility] ago and since that time has been seen in the emergency department greater than 40 times. She was seen here yesterday, May 21, 2019, , , , , 18, 13th, 12th, 11th, 10th, eighth, seventh twice, on the sixth she was seen by oncology at the [facility]the [facility], also in the ER on [...] and 03/15/2024. Report of CT chest from [facility] from 03/13/2023 is also available. TECHNIQUE: [...] Rate 77 BPM Atrial Rate 77 BPM AL Interval 160 ms QRS Duration 82 ms QT 362 ms QTc 409 ms P Clute 61 degrees R AXIS 92 degrees T Clute 49 degrees Interpretation ECG Sinus rhythm Rightward axis Borderline ECG When compared with ECG of 22-May-2024 15:14, Nonspecific T wave abnormality no longer evident in Inferior leads Confirmed by SEE ED PROVIDER NOTE FOR, ECG INTERPRETATION (4000), medical editor SEMLA GARRISON ([id number]) on 05/23/2024 7:30:33 PM ECG: Performed at: 1854 Impression: nsr rate of 77, wandering baseline somewhat limits exam. R axis. Pr 160ms, qrs 82ms, qtc 409ms, prt axes 61 92 49. Compared to 05/22/[address] segments in inferior limb leads no longer present. I have independently reviewed and interpreted the EKS(s) documented above PROCEDURES: Procedures: [facility] Documentation Medical Decision Making Obtained [...] with other provider:Did you involve another provider (corporate travel consultant, , pharmacy, etc.)?: No Discharge. I prescribed additional prescription strength medication(s) as charted. See documentation for any additional details. MIPS: Not Applicable Marilia Summers MD Emergency Medicine [facility] Marilia Summers MD 05/23/24 [id number] D SALES CONSULTANT * Carmen Elkins RN - 05/23/2024 4:51 PM CST Pt arrives with c/o abdominal pain (ULQ). Pt seen here yesterday for the same pain and sickle cell pain. Reports feeling better when she left yesterday but now pain is back. Temp: 99.9 D SALES CONSULTANT documented in this encounter Plan of Treatment Not on file documented as of this encounter Goals Goal Patient Goal Type Associated Problems Recent Progress Patient-Stated? Author Pain Management General On track( 025 12:40 PM FIELD SALES CONSULTANT) Yes Juhi Benson, SOFIA Note: Goal Statement: [...] EMBOLISM W CONTRAST STAT 05/23/2024 9:33 PM FIELD SALES CONSULTANT TROPONIN T, HIGH SENSITIVITY STAT 05/23/2024 9:02 PM FIELD SALES CONSULTANT RETICULOCYTE COUNT STAT 05/23/2024 9: 02 PM FIELD SALES CONSULTANT N TERMINAL PRO BNP OUTPATIENT STAT 05/23/2024 9:02 PM FIELD SALES CONSULTANT CBC WITH PLATELETS STAT 05/23/2024 9: 02 PM FIELD SALES CONSULTANT ECG 12-LEAD WITH MUSE SJN,SJO,WWH STAT 05/23/2024 6:54 PM FIELD SALES CONSULTANT documented in this encounter Results * CT Chest Pulmonary Embolism w Contrast (05/23/2024 9:33 PM FIELD SALES CONSULTANT) Anatomical Region Laterality Modality Chest, SUBRAD CT BODY, UMP CT CHEST Computed Tomography 05/23/2024 9:33 PM FIELD SALES CONSULTANT Impressions 05/23/2024 10:12 PM FIELD SALES CONSULTANT IMPRESSION: 1. Bilateral pulmonary nodules stable since [...] as noted above. Narrative 05/23/2024 10:12 PM FIELD SALES CONSULTANT EXAM: CT CHEST PULMONARY EMBOLISM W CONTRAST LOCATION: [facility] DATE: 05/23/2024 INDICATION: patient with sickle cell. acute chest pain similar to pe in the past. COMPARISON: Chest x-ray 05/22/2024, CTA chest 05/04/2024 and 03/15/2024. Report of CT chest from [facility] from 03/13/2023 is also available. TECHNIQUE: [...] 05/04/2024 and 03/15/2024.Report of CT chest from [facility] from 03/13/2023 is alsoavailable. TECHNIQUE: CT chest [...] terminal pro BNP outpatient (05/23/2024 9:02 PM FIELD SALES CONSULTANT) [facility] N Terminal Pro BNP Outpatient 74 [id number] - 450 pg/mL 05/23/2024 9:39 PM FIELD SALES CONSULTANT [facility] Comment: Reference range shown and [...] Unknown Venipuncture / Unknown 05/23/2024 9:02 PM FIELD SALES CONSULTANT 05/23/2024 9:10 PM FIELD SALES CONSULTANT Marilia Summers MD LAB - BLOOD ORDERABLES Final Result Performing Organization Address City/[facility]/ZIP Co de Phone Number [facility] [address] [place] [address], [facility] * Troponin T, High Sensitivity (05/23/2024 9:02 PM FIELD SALES CONSULTANT) Troponin T, High Sensitivity <6 <=14 ng/L 05/23/2024 9:39 [address] FIELD SALES CONSULTANT [facility] Comment: Either a High Sensitivity [...] Unknown Venipuncture / Unknown 05/23/2024 9:02 PM FIELD SALES CONSULTANT 05/23/2024 9:10 PM FIELD SALES CONSULTANT Marilia Summers MD LAB - BLOOD ORDERABLES Final Result Performing Organization Address [facility] Co de Phone Number [facility] [address] [place] [address], [facility] * (ABNORMAL) Reticulocyte count (05/23/2024 9:02 PM FIELD SALES CONSULTANT) % Reticulocyte 28.1(H) 0.5 - 2.0 % 05/23/2024 9:[address] FIELD SALES CONSULTANT [facility] Absolute Reticulocyte 0.698(H) 0.025 - 0.095 10e6/uL 05/23/2024 9:35 [address] FIELD SALES CONSULTANT [facility] Blood BLOOD SPECIMEN / Unknown Venipuncture / Unknown 05/23/2024 9:02 PM FIELD SALES CONSULTANT 05/23/2024 9:10 PM FIELD SALES CONSULTANT us Marilia Summers MD LAB - BLOOD ORDERABLES Final Result [facility] [address] [place] [address], [facility] * (ABNORMAL) CBC (+ platelets, no diff) (05/23/2024 9:02 PM FIELD SALES CONSULTANT) WBC Count 17.2(H) 4.0 - 11.0 10e3/uL 05/23/2024 9:18 PM [facility] RBC Count 2.45(L) 3.80 - 5.20 10e6/uL 05/23/2024 9:18 PM [facility] Hemoglobin 7.9(L) 11.7 - 15.7 g/dL 05/23/2024 9:18 PM [facility] Hematocrit 22.4(L) 35.0 - 47.0 % 05/23/2024 9:18 PM [facility] MCV 91 78 - 100 fL 05/23/2024 9:18 PM [facility] MCH 32.2 26.5 - 33.0 pg 05/23/2024 9:18 PM [facility] MCHC 35.3 31.5 - 36.5 g/dL 05/23/2024 9:18 PM [facility] RDW 24.4(H) 10.0 - 15.0 % 05/23/2024 9:18 PM [facility] Platelet Count 519(H) 150 - 450 10e3/uL 05/23/2024 9:18 PM [facility] Blood BLOOD SPECIMEN / Unknown Venipuncture / Unknown 05/23/2024 9:02 PM FIELD SALES CONSULTANT 05/23/2024 9:10 PM FIELD SALES CONSULTANT us Marilia Summers MD LAB - BLOOD ORDERABLES Final Result [facility] [address] [place] [address], [facility] * ECG 12-LEAD WITH MUSE (LHE) (05/23/2024 6:54 PM FIELD SALES CONSULTANT) Systolic Blood Pressure mmHg RADIOLOGY RESULTS Diastolic Blood Pressure mmHg RADIOLOGY RESULTS Ventricular Rate 77 BPM RAD IOLOGY RESULTS Atrial Rate 77 BPM RADIOLOG Y RESULTS AL Interval 160 ms RADIOLOG Y RESULTS QRS Duration 82 ms RADIOLO GY RESULTS QT 362 ms RADIOLOGY RESULTS QTc 409 ms RADIOLOGY RESULTS P Clute 61 degrees RADIOLOGY RESULTS R AXIS 92 degrees RADIOLOGY RESULTS T Clute 49 degrees RADIOLOGY RESULTS Interpretation ECG Sinus rhythm Rightward axis Borderline ECG When compared with ECG of 22-May-2024 15:14, Nonspecific T wave abnormality no longer evident in Inferior leads Confirmed by SEE ED PROVIDER NOTE FOR, ECG INTERPRETATION (4000), medical editor SELMA GARRISON ([id number]) on 05/23/2024 7:30:33 PM RADIOLOGY RESULTS 05/23/2024 6:54 PM FIELD SALES CONSULTANT 05/23/2024 7:30 PM FIELD SALES CONSULTANT us Marilia Summers MD ECG ORDERABLES Edited [...] For 1 dose $Given 05/23/2024 10:03 PM FIELD SALES CONSULTANT 50 mg HYDROmorphone (DILAUDID) injection 2 mg 2 mg, Intravenous, EVERY 1 HOUR PRN, moderate pain, Starting on Wed05/23/24 at 2115, For 2 doses $Given 05/23/2024 10:21 PM FIELD SALES CONSULTANT 2 mg $Given 05/23/2024 9:18 PM FIELD SALES CONSULTANT 2 mg HYDROmorphone (DILAUDID) injection 2 mg 2 mg, Intravenous, ONCE, On Wed05/23/24 at 2330, For 1 dose $Given 05/23/2024 11:20 PM FIELD SALES CONSULTANT 2 mg iopamidol (ISOVUE-370) solution 75 mL 75 mL, Intravenous, ONCE, On Wed05/23/24 at 2130, For 1 dose $Given 05/23/2024 9:33 PM FIELD SALES CONSULTANT 75 mLs lactated ringers BOLUS 1,000 mL Intravenous, 1,000 mL, ONCE, On Wed05/23/24 at 2200, For 1 dose $New Bag 05/23/2024 10:05 PM FIELD SALES CONSULTANT 1,000 mLs Lidocaine (LIDOCARE) 4 % Patch [...] post injection. $Patch/Med Applied 05/23/2024 10:53 PM FIELD SALES CONSULTANT 1 patch Left Chest ondansetron (ZOFRAN) injection 8 mg 8 mg, Intravenous, ONCE PRN, nausea, vomiting, Administer over 2-5 Minutes, Starting on Wed05/23/24 at 2159, For 1 dose $Given 05/23/2024 10:07 PM FIELD SALES CONSULTANT 8 mg documented in this encounter Active and Recently Administered Medications Times are shown in FIELD SALES CONSULTANT. Scheduled Medication Order 05/21/2024 05/22/2024 05/23/2024 diphenhydrAMINE [...] On Wed05/23/24 at 2130, For 1 dose 213 ($Given - Provi nas: LUIS Kruse) lactated [...] RN) documented in this encounter Care Teams Arts And Crafts Instructor Relationship Specialty Start Date End Date No Ref-Primary, Physician PCP - General 03/15/24 06/17/24 Mor Ramsey Medical Student 04/03/24 Case Samuel MD [address] [place] [address] 484, [address] [place] [address] Assigned Pediatric Specialist Provider 05/18/24 documented as of this encounter
--- OUTSIDE RECORDS SUMMARY | 2024-06-24 20:08 | XMS_ITS | Encounter Summary ---
Author Organization [facility] Address [address] [place] [address] Care Team Providers Care Web Engineer Name Role Phone No Ref-Primary, Physician Primary Care Provider Mor Ramsey Unavailable Unavailable Case Samuel MD Unavailable [phone] Reason for Referral * Therapeutic Imaging/IR (Routine: Next available opening) - Closed Specialty Diagnoses / Procedures Referred By Contac t Referred To Contact Radiology. 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) [...] on file Legal Sex Female 8:25 AM INSIDE SALES PROFESSIONAL Gender Identity Not on file Sexual Orientation Not on file documented as of this encounter Last Filed Vital Signs Vital Sign Reading Time Taken Comments Blood Pressure 100/60 05/25/2024 4:00 PM INSIDE SALES PROFESSIONAL Pulse 92 05/25/2024 3:00 PM INSIDE SALES PROFESSIONAL Temperature 36.9 C (98.5 F) 05/25/2024 11:09 AM INSIDE SALES PROFESSIONAL Respiratory Rate 16 05/25/2024 4:00 PM INSIDE SALES PROFESSIONAL Oxygen Saturation 98% 05/25/2024 4:00 PM INSIDE SALES PROFESSIONAL Inhaled Oxygen Concentration - - Weight 51.1 kg (112 lb 9.6 oz) 05/25/2024 11:09 AM INSIDE SALES PROFESSIONAL Height - - Body Mass Index 21.28 05/23/2024 4:48 PM INSIDE SALES PROFESSIONAL documented in this encounter Discharge Instructions * Discharge Instructions* Hattie Ballesteros RN - 05/25/2024 3:24 PM INSIDE SALES PROFESSIONAL Images from the original note were not included. [facility] Interventional Radiology Discharge Instructions Following Port Placement You had a 2 ports placed. On the right side of your chest is a apheresis port and on the left side of your chest in a smart port. A port is a small internist medical doctor md that is placed under the skin and isconnected to a vein with a catheter (thin, flexible tube). Ports can be used to administer IV medications (including chemotherapy), fluids or blood products or for blood lab draws. Please follow the below instructions after your procedure: Your Ports has been closed with [place] (Skin Glue) If there is any [...] port placement for further instructions for this. [facility] INTERVENTIONAL RADIOLOGY DEPARTMENT Procedure Physician: Myron Michel MD Date of procedure: May 25, 2024 Telephone Numbers: [phone] Wednesday-Wednesday 7:30 am to 4:00 pm [phone] After 4:00 pm Wednesday-Wednesday, Weekends & Holidays. Ask for the Interventional Radiologist superannuation clerk. Someone is superannuation clerk 24 hrs/day [facility] toll free number: Wednesday-Wednesday 8:00 am to 4:30 pm [facility] Emergency Dept: [phone] IF YOU ARE EXPERIENCING A MEDICAL EMERGENCY PLEASE CALL 911 DE SALES PROFESSIONAL DE SALES PROFESSIONAL documented in this encounter Medications at Time [...] to s/o who is driving patient home. DE SALES PROFESSIONAL * Hattie Ballesteros RN - 05/25/2024 3:07 PM CST Patient returned s/p bilateral port placement with apheresis port on the right and smart port on the left, both with dermabond, intact no bleeding or swelling. Patient c/o 7/10 pain, RN called Dr. Anglin and got home dose of dilaudid ordered. Patient alert and oriented, RASS of 0. Will discharge once meeting criteria. DE SALES PROFESSIONAL * Hattie Ballesteros RN - 05/25/2024 12:32 PM CST Patient prepped for port placement x 2. Patient will have a power port and a apharesis IV port. Consent signed. PIV placed in left AC by vascular, IV antibiotic running. Appropriately NPO. Patient has sickle cell disease, reports pain okay today. S/o Vineet will be picking patient up. DE SALES PROFESSIONAL documented in this encounter Procedure Notes * Myron Michel MD - 05/25/2024 2:55 PM CSTAssociated Order(s): IR Procedure Note [facility] Procedure: IR Procedure Note Date/Time: 05/25/2024 [...] the procedure a time out was called Blue Bell Protocol: the Joint Commission Blue Bell Protocol was followed Preparation: Patient was prepped and draped in usual sterile fashion ANESTHESIA Anesthesia: Local infiltration Local Anesthetic: Lidocaine 1% without epinephrine SEDATION Patient Sedated: Yes Sedation Type: Moderate (conscious) sedation Sedation: Fentanyl and midazolam Vital signs: Vital signs monitored during sedation See dictated procedure note for full details. Findings: Successful bilateral port placement apheresis on the right, 6 venezuelan smart port on the left Specimens: none Procedural Complications: None Condition: Stable Plan: 1 hour bedrest then okay to discharge PROCEDURE Describe Procedure: Successful bilateral port placement apheresis on the right, 6 venezuelan smart porton the left Patient Tolerance: Patient tolerated the procedure well with no immediate complications Length of time physician/provider present for 1:1 monitoring during sedation: 83-97 min DE SALES PROFESSIONAL documented in this encounter Miscellaneous Notes * [...] mcg of fentanyl Sedation time: 97 minutes (0083-1603) Report given to: Juhi Aviles RN Laboratory Cureman: n/a Other Notes: Pt arrived to IR [...] (5 mL). Pt transferred back to . DE SALES PROFESSIONAL * Pre-Procedure - Juan Story PA-Jefferson - 05/25/2024 11:37 AM INSIDE SALES PROFESSIONAL GENERAL PRE-PROCEDURE: Procedure: Port placement x2 Date/Time: [...] data, medications, and the plan for sedation DE SALES PROFESSIONAL documented in this encounter Plan of Treatment Not on file documented as of this encounter Goals Goal Patient Goal Type Associated Problems Recent Progress Patient-Stated? 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) HCG QUALITATIVE URINE Routine 05/25/2024 12:03 PM INSIDE SALES PROFESSIONAL documented in this encounter Results * IR Procedure Note (05/25/2024 2:54 PM INSIDE SALES PROFESSIONAL) Narrative Myron Michel MD - 05/25/2024 2:54 PM INSIDE SALES PROFESSIONAL Myron Michel MD 05/25/2024 2:55 PM [facility] Procedure: IR Procedure Note Date/Time: 05/25/2024 [...] the procedure a time out was called Blue Bell Protocol: the Joint Commission Blue Bell Protocol was followed Preparation: Patient was prepped and draped in usual sterile fashion ANESTHESIA Anesthesia: Local infiltration Local Anesthetic: Lidocaine 1% without epinephrine SEDATION Patient Sedated: Yes Sedation Type: Moderate (conscious) sedation Sedation: Fentanyl and midazolam Vital signs: Vital signs monitored during sedation See dictated procedure note for full details. Findings: Successful bilateral port placement apheresis on the right, 6 venezuelan smart port on the left Specimens: none Procedural Complications: None Condition: Stable Plan: 1 hour bedrest then okay to discharge PROCEDURE Describe Procedure: Successful bilateral port placement apheresis on the right, 6 venezuelan smart port on the left Patient Tolerance: Patient tolerated the procedure well with no immediate complications Length of time physician/provider present for 1:1 monitoring during sedation: 83-97 min us Myron Michel MD PROCEDURE/MINOR SURGICAL ORDERA BLES Final Result * IR Chest Port Placement > 5 Yrs of Age (05/25/2024 2:47 PM INSIDE SALES PROFESSIONAL) Anatomical Region Laterality Modality Chest Radio Fluoroscop y Impressions 05/25/2024 5:26 PM INSIDE SALES PROFESSIONAL IMPRESSION: Insertion of right-sided apheresis chest port, [...] mg Versed Sedation time: 97 minutes ATTENDING [id number] SEDATION TIME: less than 5 minutes. Access [...] placed: BD PowerFlow apheresis port Catheter size (Ukrainian): 9.6 Lumens: Single-lumen Power injectable: Yes Catheter [...] JASWINDER COOPER MD Narrative 05/25/2024 5:26 PM INSIDE SALES PROFESSIONAL PROCEDURE: Venous port placement Procedural Personnel Attending [...] mg Versed Sedation time: 97 minutes ATTENDING [id number] SEDATION TIME: less than 5 minutes. Access [...] placed: BD PowerFlow apheresis port Catheter size (Ukrainian): 9.6 Lumens: Single-lumen Power injectable: Yes Catheter [...] 4 Yrs of Age (05/25/2024 2:47 PM INSIDE SALES PROFESSIONAL) Anatomical Region Laterality Modality Chest Radio Fluoroscop y Impressions 05/25/2024 5:23 PM INSIDE SALES PROFESSIONAL IMPRESSION: Insertion of left-sided 6 Ukrainian chest port, with catheter tip in the [...] mg Versed Sedation time: 97 minutes ATTENDING [id number] SEDATION TIME: 5 minutes. Access Local anesthesia [...] AngioDynamics Plastic CT Smart Port Catheter size (Ukrainian): 6 Lumens: Single-lumen Power injectable: Yes Catheter [...] JASWINDER COOPER MD Narrative 05/25/2024 5:23 PM INSIDE SALES PROFESSIONAL PROCEDURE: Venous port placement Procedural Personnel Attending [...] immediate complications. IMPRESSION: Insertion of left-sided 6 Ukrainian chest port, with catheter tip in the [...] mg Versed Sedation time: 97 minutes ATTENDING [id number] SEDATION TIME: 5 minutes. Access Local anesthesia [...] AngioDynamics Plastic CT Smart Port Catheter size (Ukrainian): 6 Lumens: Single-lumen Power injectable: Yes Catheter [...] * HCG qualitative urine (05/25/2024 12:03 PM INSIDE SALES PROFESSIONAL) hCG Urine Qualitative Negative Negative JARET 05/25/2024 12:34 PM INSIDE SALES PROFESSIONAL [facility] Comment:This test is for scr eening purposes. Results should be interpreted along with the clinical picture. Confirmation testing is available if warranted by ordering [id number], HCG Quantitative . Urine MID-STREAM URINE SPECIMEN / Unknown Non-blood Collection / Unknown 05/25/2024 12:03 PM INSIDE SALES PROFESSIONAL 05/25/2024 12:19 PM INSIDE SALES PROFESSIONAL us Jaswinder Cooper MD LAB - URINE ORDERABLES [facility] Result [facility] [address] [facility], Room [address] [id number] documented in this encounter Visit [...] ative Pharmacoprophylaxis $New Bag 05/25/2024 12:17 PM INSIDE SALES PROFESSIONAL 2 g 200 mL/hr fentaNYL (PF) (SUBLIMAZE) [...] physician., IR Intra-procedure $Given 05/25/2024 2:38 PM INSIDE SALES PROFESSIONAL 25 mcg $Given 05/25/2024 2:25 PM INSIDE SALES PROFESSIONAL 50 mcg $Given 05/25/2024 2:16 PM INSIDE SALES PROFESSIONAL 25 mcg flumazenil (ROMAZICON) injection 0.2 mg [...] $Given by Other Clinician 05/25/2024 1:40 PM INSIDE SALES PROFESSIONAL 5,000 Units heparin lock flush 100 unit/mL injection 5 mL 5 mL, Intracatheter, ONCE, On Citlali 05/25/24 at 1330, For 1 dose, Left chest port $Given by Other Clinician 05/25/2024 2:30 PM INSIDE SALES PROFESSIONAL 5 mLs HYDROmorphone (DILAUDID) tablet 2 mg 2 mg, Oral, ONCE PRN, severe pain, Starting on Citlali 05/25/24 at 1507, For 1 dose $Given 05/25/2024 3:16 PM INSIDE SALES PROFESSIONAL 2 mg lidocaine (LMX4) cream Topical, EVERY [...] $Given by Other Clinician 05/25/2024 1:58 PM INSIDE SALES PROFESSIONAL 40 mLs midazolam (VERSED) injection 0.5-2 mg [...] dose., IR Intra-procedure $Given 05/25/2024 2:38 PM INSIDE SALES PROFESSIONAL 0.5 mg $Given 05/25/2024 2:25 PM INSIDE SALES PROFESSIONAL 1 mg $Given 05/25/2024 2:16 PM INSIDE SALES PROFESSIONAL 0.5 mg naloxone (NARCAN) injection 0.2 mg [...] Recently Administered Medications Times are shown in INSIDE SALES PROFESSIONAL. Scheduled Medication Order 05/23/2024 05/24/2024 05/25/2024 ceFAZolin [...] dose 1516 ($Given - Provi nas: Hattie Ballesetros RN) lidocaine (LMX4) cream Topical, EVERY 1 [...] procedure documented in this encounter Care Teams Web Engineer Relationship Specialty Start Date End Date No Ref-Primary, Physician PCP - General 03/15/24 06/17/24 Mor Ramsey Medical Student 04/03/24 Case Samuel MD [address] [place] [address] [address], [address] [place] [address] Assigned Pediatric Specialist Provider 05/18/24 documented as of this encounter
--- OUTSIDE RECORDS SUMMARY | 2024-06-24 20:08 | XMS_ITS | Encounter Summary ---
Author Organization [facility] Address [address] [place] [address]. [place] [address] Care Team Providers Care Counter Supervisor Name Role Phone No Ref-Primary, Physician Primary Care Provider Mor Ramsey Unavailable Unavailable Case Samuel MD Unavailable [phone] Encounter Details Date Type Department Care Team (Late st Contact Info) Description 05/22/2024 My[facility] Medical Advice [facility] Interventional Radiology [address] [place] [address] Yadi Mahan, RN Social History [...] on file Legal Sex Female 8:25 AM SWATCH CLERK Gender Identity Not on file Sexual Orientation Not on file documented as of this encounter Plan of Treatment Not on file documented as of this encounter Goals Goal Patient Goal Type Associated Problems Recent Progress Patient-Stated? Author Pain Management General On track( 025 12:40 PM SWATCH CLERK) Yes Juhi Benson, SOFIA Note: Goal Statement: [...] on filedocumented in this encounter Care Teams Counter Supervisor Relationship Specialty Start Date End Date No Ref-Primary, Physician PCP - General 03/15/24 06/17/24 Mor Ramsey Medical Student 04/03/24 Case Samuel MD [address] [place] [address] [address], [address] [place] [address] Assigned Pediatric Specialist Provider 05/18/24 documented as of this encounter
--- OUTSIDE RECORDS SUMMARY | 2024-06-24 20:08 | XMS_ITS | Encounter Summary ---
Author Organization [facility] Address [address] [place] [address]. [place] [address] Care Team Providers Care Platform Architect Name Role Phone No Ref-Primary, Physician Primary Care Provider Mor Ramsey Unavailable Unavailable Case Samuel MD Unavailable [phone] Encounter Details Date Type Department Care Team [...] on file Legal Sex Female 8:25 AM MASON HELPER Gender Identity Not on file Sexual Orientation Not on file documented as of this encounter Plan of Treatment Not on file documented as of this encounter Goals Goal Patient Goal Type Associated Problems Recent Progress Patient-Stated? Author Pain Management General On track( 025 12:40 PM MASON HELPER) Yes Juhi Benson, RN Note: Goal Statement: [...] on filedocumented in this encounter Care Teams Platform Architect Relationship Specialty Start Date End Date No Ref-Primary, Physician PCP - General 03/15/24 06/17/24 Mor Ramsey Medical Student 04/03/24 Case Samuel MD [address] [place] [address] [address], [address] [place] [address] Assigned Pediatric Specialist Provider 05/18/24 documented as of this encounter
--- OUTSIDE RECORDS SUMMARY | 2024-06-24 20:08 | XMS_ITS | Encounter Summary ---
Author Organization [facility] Address [address] [place] [address]. [place] [address] Care Team Providers Care Farmworker Dairy Name Role Phone No Ref-Primary, Physician Primary Care Provider Mor Ramsey Unavailable Unavailable Case Samuel MD Unavailable [phone] Juhi Benson RN Unavailable Unavailable Encounter Details [...] on file Legal Sex Female 8:25 AM OIL PAINTER Gender Identity Not on file Sexual Orientation Not on file documented as of this encounter Plan of Treatment Not on file documented as of this encounter Goals Goal Patient Goal Type Associated Problems Recent Progress Patient-Stated? Author Pain Management General On track( 025 12:40 PM OIL PAINTER) Yes Juhi Benson RN Note: Goal Statement: [...] on filedocumented in this encounter Care Teams Farmworker Dairy Relationship Specialty Start Date End Date No Ref-Primary, Physician PCP - General 03/15/24 06/17/24 Mor Ramsey Medical Student 04/03/24 Case Samuel MD [address] [place] [address] [address], [address] [place] [address] Assigned Pediatric Specialist Provider 05/18/24 Juhi Benson RN Specialty Supply Chain Vice President Hematology & Oncology 05/29/24 documented as of this encounter
--- OUTSIDE RECORDS SUMMARY | 2024-06-24 20:08 | XMS_ITS | Encounter Summary ---
Author Organization [facility] Address [address] [place] [address] Care Team Providers Care Hardwood Floor Refinisher Name Role Phone No Ref-Primary, Physician Primary Care Provider Mor Ramsey Unavailable Unavailable Case Samuel MD Unavailable [phone] Reason for Visit * Reason Comments Sickle Cell Pain Crisis Chest Pain Encounter Details Date Type Department Care Team (Late st Contact Info) Description 05/20/2024 7:30 AM CONTENT MANAGEMENT CONSULTANT - 05/20/2024 11:15 AM [facility] Emergency [facility] Emergency Room [address] [place] [address] Stiven Madsen MD [facility] [address], [place] [id number] Sickle cell pain crisis (H) Discharge Disposition: [...] on file Legal Sex Female 8:25 AM CONTENT MANAGEMENT CONSULTANT Gender Identity Not on file Sexual Orientation Not on file documented as of this encounter Last Filed Vital Signs Vital Sign Reading Time Taken Comments Blood Pressure 115/59 05/20/2024 11:00 AM CONTENT MANAGEMENT CONSULTANT Pulse 76 05/20/2024 11:00 AM CONTENT MANAGEMENT CONSULTANT Temperature 37.3 C (99.2 F) 05/20/2024 7:33 AM CONTENT MANAGEMENT CONSULTANT Respiratory Rate 20 05/20/2024 11:00 AM CONTENT MANAGEMENT CONSULTANT Oxygen Saturation 100% 05/20/2024 11:00 AM CONTENT MANAGEMENT CONSULTANT Inhaled Oxygen Concentration - - Weight 50.8 kg (112 lb) 05/20/2024 7:33 AM CONTENT MANAGEMENT CONSULTANT Height 154.9 cm (5' 1) 05/20/2024 7:33 AM CONTENT MANAGEMENT CONSULTANT Body Mass Index 21.16 05/20/2024 7:33 AM CONTENT MANAGEMENT CONSULTANT documented in this encounter Discharge Instructions * Discharge Instructions* Stiven Madsen MD - 05/20/2024 11:08 AM CONTENT MANAGEMENT CONSULTANT 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 Try to make sure that you are drinking plenty of liquids to keep yourself hydrated. Continue to take your usual pain medications. If you have other concerns specifically productive cough, severe chest pain, shortness of breath, or other immediate concern we should reevaluate in the emergency department. ENT MANAGEMENT CONSULTANT documented in this encounter Medications at Time [...] in 10 minutes. Message sent to provider. ENT MANAGEMENT CONSULTANT * Suzanne Cadet RN - 05/20/2024 10:00 AM CST Pt requesting additional medication for pain. Also requesting medication for itching. Message sent to provider. Medicated per provider order. ENT MANAGEMENT CONSULTANT * Yanna Huerta RN - 05/20/2024 8:43 AM CST IV infiltrated and removed, LES RN coming to try for IV ENT MANAGEMENT CONSULTANT * Yanna Huerta RN - 05/20/2024 8:10 AM CST Introduced self to patient. Whiteboard updated. Plan of care and length of time discussed with patient. Will continue to monitor. Yanna Huerta RN.......05/20/2024 8:37 AM ENT MANAGEMENT CONSULTANT * Stiven Madsen MD - 05/20/2024 7:31 [...] cell disease. Radial instantly establishing care in [place] and with several ED visits across the [...] with other provider:Did you involve another provider (mortgage consultant, MH, pharmacy, etc.)?: No Discharge. 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 Recently moved to [place] from [place], [place]. She is 1 of 9 [...] Social Connections: Socially Integrated (03/28/2024) Received from [facility] Social Connections Do you often [...] wave abnormality. Rate: 86 Rhythm: Sinus rhythm [place]: 18 55 25 DC Interval: 154 QRS Interval: 78 QTc Interval: [...] my direction. Stiven Madsen M.D. Emergency Medicine [facility] EMERGENCY ROOM [address] [place] [id number] Dept: [phone] Stiven Madsen MD 05/20/24 1353 ENT MANAGEMENT CONSULTANT * Stefani Huizar RN - 05/20/2024 7:27 AM CST Pt c/o pain all over body, hx sickle cell and feels like flare up started 2 days ago. Pt also c/o left sided chest pain, pain with taking a deep breath. Pt was seen here yesterday as well for same states did not have chest pain then ENT MANAGEMENT CONSULTANT ENT MANAGEMENT CONSULTANT documented in this encounter Plan of Treatment Not on file documented as of this encounter Goals Goal Patient Goal Type Associated Problems Recent Progress Patient-Stated? Author Pain Management General On track( 025 12:40 PM CONTENT MANAGEMENT CONSULTANT) Yes Juhi Benson, RN Note: Goal Statement: [...] CHEST 2 VIEWS STAT 05/20/2024 9:30 AM CONTENT MANAGEMENT CONSULTANT EXTRA TUBE STAT 05/20/2024 9:09 AM CONTENT MANAGEMENT CONSULTANT EXTRA GREEN TOP (LITHIUM HEPARIN) TUBE STAT 05/20/2024 9:09 AM CONTENT MANAGEMENT CONSULTANT RBC AND PLATELET MORPHOLOGY STAT 05/20/2024 9:09 AM CONTENT MANAGEMENT CONSULTANT CBC WITH PLATELETS AND DIFFERENTIAL STAT 05/20/2024 9:09 AM CONTENT MANAGEMENT CONSULTANT CBC WITH PLATELETS & DIFFERENTIAL STAT 05/20/2024 9:09 AM CONTENT MANAGEMENT CONSULTANT RETICULOCYTE COUNT STAT 05/20/2024 9: 09 AM CONTENT MANAGEMENT CONSULTANT BASIC METABOLIC PANEL STAT 05/20/2024 9:09 AM CONTENT MANAGEMENT CONSULTANT BASIC METABOLIC PANEL STAT 05/20/2024 8:21 AM CONTENT MANAGEMENT CONSULTANT ECG 12-LEAD WITH MUSE [facility] STAT 05/20/2024 7:36 AM CONTENT MANAGEMENT CONSULTANT documented in this encounter Results * Chest XR, PA & LAT (05/20/2024 9:30 AM CONTENT MANAGEMENT CONSULTANT) Anatomical Region Laterality Modality Chest Digital Radiogra phy 05/20/2024 9:30 AM CONTENT MANAGEMENT CONSULTANT Impressions 05/20/2024 9:38 AM CONTENT MANAGEMENT CONSULTANT IMPRESSION: Slightly increased bilateral mid to lower lung patchy opacities which may reflect atelectatic changes or pneumonic infiltrates. No pleural effusion. Normal heart size. Multiple H-shaped thoracic vertebra consistent with the history of sickle cell disease. Narrative 05/20/2024 9:38 AM CONTENT MANAGEMENT CONSULTANT EXAM: XR CHEST 2 VIEWS LOCATION: [place] [...] RBC and Platelet Morphology (05/20/2024 9:09 AM CONTENT MANAGEMENT CONSULTANT) Pathologist [facility] Emergency Department RBC Morphology Confirmed RBC Indices 05/20/2024 9:47 AM CONTENT MANAGEMENT CONSULTANT [facility] Platelet Assessment Automated Count Confirmed. Platelet morphology is normal. Automated Count Confirmed. Platelet morphology is normal. JARET 05/20/2024 9:47 AM CONTENT MANAGEMENT CONSULTANT [facility] Polychromasia Slight(A) None Seen JARET 05/20/2024 9:47 AM [facility] Reactive Lymphocytes Present(A) None Seen JARET 05/20/2024 9:47 AM [facility] Sickle Cells Moderate(A) None Seen JARET 05/20/2024 9:47 AM [facility] Target Cells Slight(A) None Seen JARET 05/20/2024 9:47 AM [facility] Blood VENOUS LINE / Unknown Venipuncture / Unknown 05/20/2024 9:09 AM CONTENT MANAGEMENT CONSULTANT 05/20/2024 9:14 AM [facility] us Stiven Madsen MD LAB - BLOOD ORDERABLES Final Result [facility] [address] [place] [address], [facility] * (ABNORMAL) Basic metabolic panel (05/20/2024 9:09 AM [facility]) Sodium 137 135 - 145 mmol/L 05/20/2024 9:42 AM [facility] Potassium 4.8 3.4 - 5.3 mmol/L 05/20/2024 9:42 AM [facility] Chloride 105 98 - 107 mmol/L 05/20/2024 9:42 AM [facility] Carbon Dioxide (CO2) 22 22 - 29 mmol/L 05/20/2024 9:42 AM [facility] Anion Gap 10 7 - 15 mmol/L 05/20/2024 9:42 AM [facility] Urea Nitrogen 7.4 6.0 - 20.0 mg/dL 05/20/2024 9:42 AM [facility] Creatinine 0.82 0.51 - 0.95 mg/dL 05/20/2024 9:42 AM [facility] GFR Estimate >90 >60 mL/min/1.7 3m2 05/20/2024 9:42 AM [facility] Comment:eGFR calculated usin 2020 CKD-EPI equation. Calcium 9.3 8.8 - 10.4 mg/dL 05/20/2024 9:42 AM [facility] Comment:Reference intervals for this test were updated on 11/09/2023 to reflect our healthy population more accurately. There may be differences in the flagging of prior results with similar values performed with this method. Those prior results can be interpreted in the context of the updated reference intervals. Glucose 107(H) 70 - 99 mg/dL 05/20/2024 9:42 AM [facility] Blood VENOUS LINE / Unknown Venipuncture / Unknown 05/20/2024 9:09 AM CONTENT MANAGEMENT CONSULTANT 05/20/2024 9:14 AM CONTENT MANAGEMENT CONSULTANT Stiven Madsen MD LAB - BLOOD ORDERABLES Final Result Performing Organization Address City/[facility]/ZIP Co de Phone Number [facility] [address] [place] [address] [place] [address], [facility] * Extra Green Top (Kayenta Heparin) Tube (05/20/2024 9:09 AM CONTENT MANAGEMENT CONSULTANT) Pathologist [facility] Emergency Department Hold Specimen JI 05/20/2024 10:16 AM [facility] Blood VENOUS LINE / Unknown Venipuncture / Unknown 05/20/2024 9:09 AM CONTENT MANAGEMENT CONSULTANT 05/20/2024 9:14 AM CONTENT MANAGEMENT CONSULTANT Deshawn Arredondo MD LAB - BLOOD ORDERABLES Liss l Result Performing Organization Address [facility] Co de Phone Number [facility] [address] [place] [address] * (ABNORMAL) CBC with platelets and differential (05/20/2024 9:09 AM CONTENT MANAGEMENT CONSULTANT) WBC Count 16.0(H) 4.0 - 11.0 10e3/uL 05/20/2024 9:47 AM [facility] RBC Count 2.57(L) 3.80 - 5.20 10e6/uL 05/20/2024 9:47 AM [facility] Hemoglobin 8.4(L) 11.7 - 15.7 g/dL 05/20/2024 9:47 AM [facility] Hematocrit 23.7(L) 35.0 - 47.0 % 05/20/2024 9:47 AM [facility] MCV 92 78 - 100 fL 05/20/2024 9:47 AM [facility] MCH 32.7 26.5 - 33.0 pg 05/20/2024 9:47 AM [facility] MCHC 35.4 31.5 - 36.5 g/dL 05/20/2024 9:47 AM [facility] RDW 22.8(H) 10.0 - 15.0 % 05/20/2024 9:47 AM [facility] Platelet Count 541(H) 150 - 450 10e3/uL 05/20/2024 9:47 AM [facility] % Neutrophils 59 % 05/20/2024 9:47 AM [facility] % Lymphocytes 23 % 05/20/2024 9:47 AM [facility] % Monocytes 15 % 05/20/2024 9:47 AM [facility] % Eosinophils 2 % 05/20/2024 9:47 AM [facility] % Basophils 1 % 05/20/2024 9:47 AM [facility] % Immature Granulocytes 1 % 05/20/2024 9:47 AM [facility] NRBCs per 100 WBC 2(H) <1 /100 025 9:47 AM [facility] Absolute Neutrophils 9.4(H) 1.6 - 8.3 10e3/uL 05/20/2024 9:47 AM [facility] Absolute Lymphocytes 3.6 0.8 - 5.3 10e3/uL 05/20/2024 9:47 AM [facility] Absolute Monocytes 2.4(H) 0.0 - 1.3 10e3/uL 05/20/2024 9:47 AM [facility] Absolute Eosinophils 0.3 0.0 - 0.7 10e3/uL 05/20/2024 9:47 AM [facility] Absolute Basophils 0.2 0.0 - 0.2 10e3/uL 05/20/2024 9:47 AM [facility] Absolute Immature Granulocytes 0.2 <=0.4 10e3/uL 05/20/2024 9:47 AM [facility] Absolute NRBCs 0.2 10e3/uL 05/20/2024 9:47 AM [facility] Blood VENOUS LINE / Unknown Venipuncture / Unknown 05/20/2024 9:09 AM [facility] 05/20/2024 9:14 AM CONTENT MANAGEMENT CONSULTANT Stiven Madsen MD LAB - BLOOD ORDERABLES Final Result Performing Organization Address [facility] de Phone Number [facility] [address] [place] [address] [address] * (ABNORMAL) Reticulocyte count (05/20/2024 9:09 AM CONTENT MANAGEMENT CONSULTANT) % Reticulocyte 25.1(H) 0.5 - 2.0 % 05/20/2024 9:19 AM [facility] Absolute Reticulocyte 0.646(H) 0.025 - 0.095 10e6/uL 05/20/2024 9:19 AM [facility] Blood VENOUS LINE / Unknown Venipuncture / Unknown 05/20/2024 9:09 AM CONTENT MANAGEMENT CONSULTANT 05/20/2024 9:14 AM CONTENT MANAGEMENT CONSULTANT Stiven Madsen MD LAB - BLOOD ORDERABLES Final Result Performing Organization Address [facility] de Phone Number [address] [place] [address], [facility] * (ABNORMAL) Basic metabolic panel (05/20/2024 8:21 AM [facility]) Pathologist [facility] Emergency Department Sodium 136 135 - 145 mmol/L 05/20/2024 8:47 AM [facility] Potassium 5.1 3.4 - 5.3 mmol/L 05/20/2024 8:47 AM [facility] Chloride 105 98 - 107 mmol/L 05/20/2024 8:47 AM [facility] Carbon Dioxide (CO2) 21(L) 22 - 29 mmol/L 05/20/2024 8:47 AM [facility] Anion Gap 10 7 - 15 mmol/L 05/20/2024 8:47 AM [facility] Urea Nitrogen 7.5 6.0 - 20.0 mg/dL 05/20/2024 8:47 AM [facility] Creatinine 0.84 0.51 - 0.95 mg/dL 05/20/2024 8:47 AM [facility] GFR Estimate >90 >60 mL/min/1.7 3m2 05/20/2024 8:47 AM [facility] Comment:eGFR calculated us2020 CKD-EPI equation. Calcium 9.1 8.8 - 10.4 mg/dL 05/20/2024 8:47 AM [facility] Comment:Reference intervals for this test were updated on 11/09/2023 to reflect our healthy population more accurately. There may be differences in the flagging of prior results with similar values performed with this method. Those prior results can be interpreted in the context of the updated reference intervals. Glucose 95 70 - 99 mg/dL 05/20/2024 8:47 AM CONTENT MANAGEMENT CONSULTANT [facility] Blood VENOUS LINE / Unknown Venipuncture / Unknown 05/20/2024 8:21 AM CONTENT MANAGEMENT CONSULTANT 05/20/2024 8:31 AM CONTENT MANAGEMENT CONSULTANT us Stiven Madsen MD LAB - BLOOD ORDERABLES Final Result Performing Organization Address [facility]/ZIP Co de Phone Number [facility] [address] [place] [address], [facility] * ECG 12-LEAD WITH MUSE (LHE) (05/20/2024 7:36 AM CONTENT MANAGEMENT CONSULTANT) Systolic Blood Pressure 111 mmHg RADIOLOGY RESULTS Diastolic Blood Pressure 56 mmHg RADIOLOGY RESULTS Ventricular Rate 86 BPM RAD IOLOGY RESULTS Atrial Rate 86 BPM RADIOLOG Y RESULTS DC Interval 154 ms RADIOLOG Y RESULTS QRS Duration 78 ms RADIOLO GY RESULTS QT 370 ms RADIOLOGY RESULTS QTc 442 ms RADIOLOGY RESULTS P [place] 18 degrees RADIOLOGY RESULTS R AXIS 55 degrees RADIOLOGY RESULTS T [place] 25 degrees RADIOLOGY RESULTS Interpretation ECG Sinus rhythm Nonspecific T wave abnormality Abnormal ECG When compared with ECG of 14-May-2024 22:12, Nonspecific T wave abnormality now evident in Inferior leads Confirmed by SEE ED PROVIDER NOTE FOR, ECG INTERPRETATION (4000), photo editor Neeraj Allison ([id number]) on 05/20/2024 7:48:17 AM RADIOLOGY RESULTS 05/20/2024 7:36 AM CONTENT MANAGEMENT CONSULTANT 05/20/2024 7:48 AM CONTENT MANAGEMENT CONSULTANT us Deshawn Arredondo MD ECG ORDERABLES Edited [...] For 1 dose $Given 05/20/2024 9:59 AM CONTENT MANAGEMENT CONSULTANT 25 mg HYDROmorphone (DILAUDID) injection 2 mg 2 mg, Intravenous, EVERY HOUR, First dose on 05/20/24 at 0800, For 3 doses $Given 05/20/2024 10:58 AM CONTENT MANAGEMENT CONSULTANT 2 mg $Given 05/20/2024 9:56 AM CONTENT MANAGEMENT CONSULTANT 2 mg $Given 05/20/2024 8:22 AM CONTENT MANAGEMENT CONSULTANT 2 mg lactated ringers infusion at 500 mL/hr, Intravenous, CONTINUOUS, Starting on 05/20/24 at 0800, Until 05/20/24 at 0959 Restarted 05/20/2024 9:30 AM CONTENT MANAGEMENT CONSULTANT 500 mL/hr $New Bag 05/20/2024 8:22 AM CONTENT MANAGEMENT CONSULTANT 500 mL/hr ondansetron (ZOFRAN) injection 8 mg 8 mg, Intravenous, EVERY 6 HOURS PRN, nausea, vomiting, Administer over 2-5 Minutes, Starting on 05/20/24 at 0744 $Given 05/20/2024 8:22 AM CONTENT MANAGEMENT CONSULTANT 8 mg documented in this encounter Active and Recently Administered Medications Times are shown in CONTENT MANAGEMENT CONSULTANT. Scheduled Medication Order 05/18/2024 05/19/2024 05/20/2024 diphenhydrAMINE [...] RN) documented in this encounter Care Teams Hardwood Floor Refinisher Relationship Specialty Start Date End Date No Ref-Primary, Physician PCP - General 03/15/24 06/17/24 Mor Ramsey Medical Student 04/03/24 Case Samuel MD [address] [place] [address], [address] [place] [address] Assigned Pediatric Specialist Provider 05/18/24 documented as of this encounter
--- OUTSIDE RECORDS SUMMARY | 2024-06-24 20:08 | XMS_ITS | Encounter Summary ---
Author Organization [facility] Address [address] [place] [address]. 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 Author Pain Management General On track( 025 12:40 PM HOGSHEAD COOPER) Yes Juhi Benson, RN Note: Goal Statement: [...] on filedocumented in this encounter Care Teams Laundry Operator Wash Room Relationship Specialty Start Date End Date No Ref-Primary, Physician PCP - General 03/15/24 06/17/24 Mor Ramsey Medical Student 04/03/24 Case Samuel MD [address] [place] [address], [address] [place] [address] Assigned Pediatric Specialist Provider 05/18/24 documented as of this encounter
--- OUTSIDE RECORDS SUMMARY | 2024-06-24 20:08 | XMS_ITS | Encounter Summary ---
Author Organization [place] Address [address] [place] [address]. [place] [address] Care Team Providers Care [employer] Clerk Name Role Phone No Ref-Primary, Physician Primary Care Provider Mor Ramsey Unavailable Unavailable Case Samuel MD Unavailable [phone] Juhi Benson RN Unavailable Unavailable Encounter Details Date Type Department Care Team (Late st Contact Info) Description 05/29/2024 Orders Only [facility] [address] [place] [address] Juhi Benson, SOFIA Sickle cell [...] on file Legal Sex Female 8:25 AM CLINICAL CYTOPATHOLOGIST Gender Identity Not on file Sexual Orientation Not on file documented as of this encounter Plan of Treatment Not on file documented as of this encounter Goals Goal Patient Goal Type Associated Problems Recent Progress Patient-Stated? Author Pain Management General On track( 025 12:40 PM CLINICAL CYTOPATHOLOGIST) Yes Juhi Benson RN Note: Goal Statement: [...] crisis documented in this encounter Care Teams [employer] Clerk Relationship Specialty Start Date End Date No Ref-Primary, Physician PCP - General 03/15/24 06/17/24 Mor Ramsey Medical Student 04/03/24 Case Samuel MD [address] [place] [address], [address] [place] [address] Assigned Pediatric Specialist Provider 05/18/24 Juhi Benson, RN Specialty Career Based Intervention Coordinator Hematology & Oncology 05/29/24 documented as of this encounter
--- OUTSIDE RECORDS SUMMARY | 2024-06-24 20:08 | XMS_ITS | Encounter Summary ---
Author Organization [place] Address [address] [place] [address]. [place] [address] Care Team Providers Care Senior Embedded Software Engineer Name Role Phone No Ref-Primary, Physician Primary Care Provider Mor Ramsey Unavailable Unavailable Case Samuel MD Unavailable [phone] Juhi Benson RN Unavailable Unavailable Reason for Visit * Reason Comments Sickle Cell Pain Crisis Encounter Details Date Type Department Care Team (Late st Contact Info) Description 05/28/2024 11:56 PM TRUCKLOAD CHECKER - 05/29/2024 3:54 AM TRUCKLOAD CHECKER Emergency [facility] Emergency Room [facility] [place] [address] Lenin Smith MD [address] [place] [id number] Sickle cell disease with crisis (H) Discharge [...] on file Legal Sex Female 8:25 AM TRUCKLOAD CHECKER Gender Identity Not on file Sexual Orientation Not on file documented as of this encounter Last Filed Vital Signs Vital Sign Reading Time Taken Comments Blood Pressure 123/66 05/29/2024 3:15 AM TRUCKLOAD CHECKER Pulse 87 05/29/2024 3:15 AM TRUCKLOAD CHECKER Temperature 36.6 C (97.9 F) 05/29/2024 12:01 AM TRUCKLOAD CHECKER Respiratory Rate 18 05/29/2024 12:01 AM TRUCKLOAD CHECKER Oxygen Saturation 93% 05/29/2024 3:15 AM TRUCKLOAD CHECKER Inhaled Oxygen Concentration - - Weight 51.7 kg (114 lb) 05/29/2024 12:01 AM TRUCKLOAD CHECKER Height 154.9 cm (5' 1) 05/29/2024 12:01 AM TRUCKLOAD CHECKER Body Mass Index 21.54 05/29/2024 12:01 AM TRUCKLOAD CHECKER documented in this encounter Discharge Instructions * Attachments The following attachments cannot be sent through Care Everywhere. * Sickle Cell Crisis (Serbian) documented in this encounter Medications at Time [...] time. Patient comfortable and agrees with plan. KLOAD CHECKER * Lenin Smith MD - 05/29/2024 12:17 [...] go home. Has an appointment with her cardiology nurse today. Willfollow-up then. No indication for transfusion [...] with other provider:Did you involve another provider (biztalk consultant, , pharmacy, etc.)?: No Discharge. No [...] information was obtained from: Patient Use of Utility Spray Operator: N/A Gianna Hernández is a 29 [...] daughters second birthdayand they walked [facility] the [facility], patient believes she might have over exerted [...] home in stable condition. 05/25 Admission to [facility] for bilateral port placements with apheresis port on right and smart port on left. 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 Recently moved to [place] from [place], [place]. She is 1 of 9 [...] Social Connections: Socially Integrated (03/28/2024) Received from [facility] [facility] Social Connections Do you often feel lonely [...] my direction. Lenin Smith M.D. Emergency Medicine [facility] EMERGENCY ROOM [facility] [id number] Dept: [phone] Lenin Smith MD 05/29/24 0412 KLOAD CHECKER * Moy Stewart RN - 05/29/2024 12:02 [...] WDL WDL Cognitive/Neuro/Behavioral WDL Cognitive/Neuro/Behavioral WDL WDL KLOAD CHECKER documented in this encounter Plan of Treatment Not on file documented as of this encounter Goals Goal Patient Goal Type Associated Problems Recent Progress Patient-Stated? Author Pain Management General On track( 025 12:40 PM TRUCKLOAD CHECKER) Yes Juhi Benson, SOFIA Note: Goal Statement: [...] MANUAL DIFFERENTIAL STAT 05/29/2024 1 2:53 AM TRUCKLOAD CHECKER CBC WITH PLATELETS AND DIFFERENTIAL STAT 05/29/2024 12:53 AM TRUCKLOAD CHECKER CBC WITH PLATELETS & DIFFERENTIAL STAT 05/29/2024 12:53 AM TRUCKLOAD CHECKER RETICULOCYTE COUNT STAT 05/29/2024 12 :53 AM TRUCKLOAD CHECKER documented in this encounter Results * (ABNORMAL) Manual Differential (05/29/2024 12:53 AM TRUCKLOAD CHECKER) % Neutrophils 54 % JARET 05/29/2024 1:58 AM TRUCKLOAD CHECKER [facility] % Lymphocytes 34 % JARET 05/29/2024 1:58 AM TRUCKLOAD CHECKER [facility] % Monocytes 10 % JARET 05/29/2024 1:58 AM TRUCKLOAD CHECKER [facility] % Eosinophils 1 % JARET 05/29/2024 1:58 AM [facility] % Basophils 1 % JARET 05/29/2024 1:58 AM [facility] Absolute Neutrophils 8.4(H) 1.6 - 8.3 10e3/uL JARET 05/29/2024 1:58 AM [facility] Absolute Lymphocytes 5.3 0.8 - 5.3 10e3/uL JARET 05/29/2024 1:58 AM [facility] Absolute Monocytes 1.6(H) 0.0 - 1.3 10e3/uL JARET 05/29/2024 1:58 AM [facility] Absolute Eosinophils 0.2 0.0 - 0.7 10e3/uL JARET 05/29/2024 1:58 AM [facility] Absolute Basophils 0.2 0.0 - 0.2 10e3/uL JARET 05/29/2024 1:58 AM [facility] NRBCs per 100 WBC 3 % JARET 05/29/2024 1:58 AM [facility] Absolute NRBCs 0.5 10e3/uL JARET 05/29/2024 1:58 AM [facility] RBC Morphology Confirmed RBC Indices JARET 05/29/2024 1:58 AM [facility] Platelet Assessment Automated Count Confirmed. Platelet morphology is normal. Automated Count Confirmed. Platelet morphology is normal. [facility] 05/29/2024 1:58 AM [facility] Polychromasia Moderate(A) None Seen JARET 05/29/2024 1:58 AM [facility] Sickle Cells Moderate(A) None Seen [facility] 05/29/2024 1:58 AM [facility] Blood VENOUS LINE / Unknown Venipuncture / Unknown 05/29/2024 12:[address] [facility] 05/29/2024 12:[address] [facility] us Lenin Smith MD LAB - BLOOD ORDERABLES Final Result [facility] [address] [place] [address], [facility] * (ABNORMAL) CBC with platelets and differential (05/29/2024 12:[address] [facility]) [facility] WBC Count 15.6(H) 4.0 - 11.0 10e3/uL 05/29/2024 1:58 AM [facility] RBC Count 2.09(L) 3.80 - 5.20 10e6/uL 05/29/2024 1:58 AM [facility] Hemoglobin 6.7(LL) 11.7 - 15.7 g/dL 05/29/2024 1:58 AM [facility] Hematocrit 19.2(L) 35.0 - 47.0 % 05/29/2024 1:58 AM [facility] MCV 92 78 - 100 fL 05/29/2024 1:58 AM [facility] MCH 32.1 26.5 - 33.0 pg 05/29/2024 1:58 AM [facility] MCHC 34.9 31.5 - 36.5 g/dL 05/29/2024 1:58 AM [facility] RDW 23.0(H) 10.0 - 15.0 % 05/29/2024 1:58 AM [facility] Platelet Count 405 150 - 450 10e3/uL 05/29/2024 1:58 AM [facility] Blood VENOUS LINE / Unknown Venipuncture / Unknown 05/29/2024 12:53 AM TRUCKLOAD CHECKER 05/29/2024 12:[address] [facility] Lenin Smith MD LAB - BLOOD ORDERABLES Final Result [facility] [address] [place] [address], [facility] * (ABNORMAL) Reticulocyte count (05/29/2024 12:53 AM TRUCKLOAD CHECKER) [facility] % Reticulocyte 28.6(H) 0.5 - 2.0 % 05/29/2024 1:27 AM [facility] Absolute Reticulocyte 0.616(H) 0.025 - 0.095 10e6/uL 05/29/2024 1:27 AM [facility] Blood VENOUS LINE / Unknown Venipuncture / Unknown 05/29/2024 12:53 AM TRUCKLOAD CHECKER 05/29/2024 12:58 AM TRUCKLOAD CHECKER us Lenin Smith MD LAB - BLOOD ORDERABLES Final Result [facility] [address] [place] [address], [facility] documented in this encounter Visit [...] For 1 dose $Given 05/29/2024 1:26 AM TRUCKLOAD CHECKER 25 mg heparin lock flush 10 unit/mL [...] each port lumen $Given 05/29/2024 3:38 AM TRUCKLOAD CHECKER 5 mLs HYDROmorphone (DILAUDID) injection 2 mg 2 mg, Intravenous, EVERY 1 HOUR PRN, severe pain, moderate pain, Starting on Wed05/29/24 at 0010, For 3 doses $Given 05/29/2024 3:37 AM TRUCKLOAD CHECKER 2 mg $Given 05/29/2024 2:37 AM TRUCKLOAD CHECKER 2 mg $Given 05/29/2024 1:19 AM TRUCKLOAD CHECKER 2 mg lactated ringers BOLUS 1,000 mL Intravenous, 1,000 mL, ONCE, at 1,000 mL/hr, Administer over 1 Hours, On Wed05/29/24 at 0030, For 1 dose $New Bag 05/29/2024 1:01 AM TRUCKLOAD CHECKER 1,000 mLs 1000 mL/hr sodium chloride (PF) 0.9% PF flush 10-20 mL 10-20 mL, Intracatheter, EVERY 1 MIN PRN, line flush, post meds or blood draw, to flush each lumen of the CVC Implanted port, Starting on Wed05/29/24 at 0008, 10 mL per port lumen post IV meds; 20 mL per port lumen post post blood draw. $Given 05/29/2024 3:37 AM TRUCKLOAD CHECKER 10 mLs sodium chloride (PF) 0.9% PF [...] Recently Administered Medications Times are shown in TRUCKLOAD CHECKER. Scheduled Medication Order 05/27/2024 05/28/2024 05/29/2024 diphenhydrAMINE [...] lumen documented in this encounter Care Teams Senior Embedded Software Engineer Relationship Specialty Start Date End Date No Ref-Primary, Physician PCP - General 03/15/24 06/17/24 Mor Ramsey Medical Student 04/03/24 Case Samuel MD [address] [place] [address], [address] [place] [address] Assigned Pediatric Specialist Provider 05/18/24 Juhi Benson, RN Specialty Geodesy Teacher Hematology & Oncology 05/29/24 documented as of this encounter
--- OUTSIDE RECORDS SUMMARY | 2024-06-24 20:09 | XMS_ITS | Encounter Summary ---
Author Organization [place] Address [address] [place] [address] Care Team Providers Care Jackscrew Man Name Role Phone No Ref-Primary, Physician Primary Care Provider Mor Ramsey Unavailable Unavailable Case Samuel MD Unavailable [phone] Juhi Benson RN Unavailable Unavailable Reason for Visit * Reason Comments Chest Pain Sickle Cell Pain Crisis Encounter Details Date Type Department Care Team (Late st Contact Info) Description 06/03/2024 3:22 PM METAL WINDOW SCREEN ASSEMBLER - 06/03/2024 5:30 PM METAL WINDOW SCREEN ASSEMBLER Emergency [facility] Emergency Room Critical [facility] hospital[address] [place] [address] Jennifer Bell MD [address] [place] [address] Sickle cell pain crisis (H) Discharge Disposition: [...] file Legal Sex Female 8:25 AM METAL WINDOW SCREEN ASSEMBLER Gender Identity Not on file Sexual Orientation Not on file documented as of this encounter Last Filed Vital Signs Vital Sign Reading Time Taken Comments Blood Pressure 117/57 06/03/2024 5:00 PM METAL WINDOW SCREEN ASSEMBLER Pulse 96 06/03/2024 5:00 PM METAL WINDOW SCREEN ASSEMBLER Temperature 36.3 C (97.4 F) 06/03/2024 3:23 PM METAL WINDOW SCREEN ASSEMBLER Respiratory Rate 17 06/03/2024 5:00 PM METAL WINDOW SCREEN ASSEMBLER Oxygen Saturation 96% 06/03/2024 5:00 PM METAL WINDOW SCREEN ASSEMBLER Inhaled Oxygen Concentration - - Weight 52.2 kg (115 lb) 06/03/2024 3:23 PM METAL WINDOW SCREEN ASSEMBLER Height 154.9 cm (5' 1) 06/03/2024 3:23 PM METAL WINDOW SCREEN ASSEMBLER Body Mass Index 21.73 06/03/2024 3:23 PM METAL WINDOW SCREEN ASSEMBLER documented in this encounter Discharge Instructions * Attachments The following attachments cannot be sent through Care Everywhere. * Sickle Cell Crisis ([place]) documented in this encounter Medications at Time [...] testing initially patient had labs done at [facility] ER earlier this morning as well as [...] external records: External records reviewed?: Outpatient Record: [facility] today (06/03/24) Care impacted by chronic illness:Other: Sickle Cell Disease Did you consider but not order tests?: Work up considered but not performed and documented in chart, if applicable Did you interpret images independently?: Independent interpretation of ECG and images noted in documentation, when applicable. Consultation discussion with other provider:Did you involve another provider (customer care consultant, , pharmacy, etc.)?: No Discharge. I [...] 10-20 mL (10 mLs Intracatheter $Given 06/03/24 9418) heparin lock flush 10 unit/mL injection 5-10 [...] her sickle cell pain. Patient presented to [facility] this morning due to sickle cell crisis and has labs, covid, flu, RSV, and chest x-ray which were all negative. She usually visits [facility] ED when her pain presents but she did not want to drive far with the [place]. According to patient, they didn't believe her sickle cell disease, so they discharged patient with no stronger pain medications so she decided to come here. Patient is afebrile. There were no other concerns/complaints at this time. Chart Review: - Patient presented to [facility] today for her sickle cell pain crisis. [...] Rate 85 BPM Atrial Rate 85 BPM LA Interval 136 ms QRS Duration 82 ms QT 382 ms QTc 454 ms P Froid 54 degrees R AXIS 72 degrees T Froid 50 degrees Interpretation ECG Sinus rhythm Nonspecific T wave abnormality Abnormal ECG When compared with ECG of 27-May-2024 12:12, No significant change was found Confirmed by SEE ED PROVIDER NOTE FOR, ECG INTERPRETATION (4000), newspaper copy editor BEN PRAKASH ([id number]) on 06/03/2024 3:58:10 PM EKG: Performed at: 03-Jun-2024 15:24:43 Impression: Sinus rhythm, nonspecific T wave abnormality, abnormal ECG Rate: 85 Rhythm: Sinus Froid: 72 LA Interval: 136 QRS Interval: 82 QTc Interval: [...] behalf by Alex Parsons, a trained medical records technician. This document has been checked and approved by the attending provider. Jennifer Bell MD Emergency Medicine [facility] EMERGENCY ROOM [address] [address] Dept: [phone] Jennifer Bell MD 06/03/24 1707 L WINDOW SCREEN ASSEMBLER * Nedra Martin RN - 06/03/2024 3:23 PM CST Pt c/o a possible sickle cell crisis with right sided chest pain that radiates to the left side. The pt did attempt to try using her home medication of diluadid of 4 mg without relief. Was just seen at [facility]. Pt has a port. Triage [...] WDL WDL Cognitive/Neuro/Behavioral WDL Cognitive/Neuro/Behavioral WDL WDL L WINDOW SCREEN ASSEMBLER documented in this encounter Plan of Treatment Not on file documented as of this encounter Goals Goal Patient Goal Type Associated Problems Recent Progress Patient-Stated? Author Pain Management General On track( 025 12:40 PM METAL WINDOW SCREEN ASSEMBLER) Yes Juhi Benson, RN Note: Goal [...] WITH MUSE MAHOGANYShawanda,SJO,WWRocio STAT 06/03/2024 3:24 PM METAL WINDOW SCREEN ASSEMBLER documented in this encounter Results * ECG 12-LEAD WITH MUSE (LHE) (06/03/2024 3:24 PM METAL WINDOW SCREEN ASSEMBLER) Systolic Blood Pressure 131 mmHg RADIOLOGY RESULTS Diastolic Blood Pressure 76 mmHg RADIOLOGY RESULTS Ventricular Rate 85 BPM RAD IOLOGY RESULTS Atrial Rate 85 BPM RADIOLOG Y RESULTS LA Interval 136 ms RADIOLOG Y RESULTS QRS Duration 82 ms RADIOLO GY RESULTS QT 382 ms RADIOLOGY RESULTS QTc 454 ms RADIOLOGY RESULTS P Froid 54 degrees RADIOLOGY RESULTS R AXIS 72 degrees RADIOLOGY RESULTS T Froid 50 degrees RADIOLOGY RESULTS Interpretation ECG Sinus rhythm Nonspecific T wave abnormality Abnormal ECG When compared with ECG of 27-May-2024 12:12, No significant change was found Confirmed by SEE ED PROVIDER NOTE FOR, ECG INTERPRETATION (4000), newspaper copy editor EBN PRAKASH ([id number]) on 06/03/2024 3:58:10 PM RADIOLOGY RESULTS 06/03/2024 3:24 PM METAL WINDOW SCREEN ASSEMBLER 06/03/2024 3:58 PM METAL WINDOW SCREEN ASSEMBLER us Deshawn Arredondo MD ECG ORDERABLES Edited [...] For 1 dose $Given 06/03/2024 4:18 PM METAL WINDOW SCREEN ASSEMBLER 50 mg heparin lock flush 10 unit/mL [...] the heparin flush. $Given 06/03/2024 5:20 PM METAL WINDOW SCREEN ASSEMBLER 5 mLs heparin lock flush 100 unit/mL [...] For 3 doses $Given 06/03/2024 4:48 PM METAL WINDOW SCREEN ASSEMBLER 2 mg $Given 06/03/2024 3:46 PM METAL WINDOW SCREEN ASSEMBLER 2 mg lactated ringers BOLUS 1,000 mL Intravenous, 1,000 mL, ONCE, at 500 mL/hr, Administer over 2 Hours, On 06/03/24 at 1530, For 1 dose $New Bag 06/03/2024 3:51 PM METAL WINDOW SCREEN ASSEMBLER 1,000 mLs 500 mL/hr ondansetron (ZOFRAN) injection 8 mg 8 mg, Intravenous, ONCE, Administer over 2-5 Minutes, On 06/03/24 at 1530, For 1 dose $Given 06/03/2024 3:46 PM METAL WINDOW SCREEN ASSEMBLER 8 mg sodium chloride (PF) 0.9% PF [...] each port lumen. $Given 06/03/2024 3:51 PM METAL WINDOW SCREEN ASSEMBLER 10 mLs documented in this encounter Active and Recently Administered Medications Times are shown in METAL WINDOW SCREEN ASSEMBLER. Scheduled Medication Order 06/01/2024 06/02/2024 06/03/2024 diphenhydrAMINE [...] lumen documented in this encounter Care Teams Jackscrew Man Relationship Specialty Start Date End Date No Ref-Primary, Physician PCP - General 03/15/24 06/17/24 Mor Ramsey Medical Student 04/03/24 Case Samuel MD [address] [place] [address], [address] [place] [address] Assigned Pediatric Specialist Provider 05/18/24 Juhi Benson, SOFIA Specialty Computer Peripheral Equipment Operator Hematology & Oncology 05/29/24 documented as of this encounter
--- OUTSIDE RECORDS SUMMARY | 2024-06-24 20:09 | XMS_ITS | Encounter Summary ---
Author Organization [address] Address [address] [place] [address]. [place] [address] Care Team Providers Care Stock Driver Name Role Phone No Ref-Primary, Physician Primary Care Provider Mor Ramsey Unavailable Unavailable Case Samuel MD Unavailable [phone] Juhi Benson RN Unavailable Unavailable Encounter Details [...] on file Legal Sex Female 8:25 AM FITNESS STUDIES TEACHER Gender Identity Not on file Sexual Orientation Not on file documented as of this encounter Plan of Treatment Not on file documented as of this encounter Goals Goal Patient Goal Type Associated Problems Recent Progress Patient-Stated? Author Pain Management General On track( 025 12:40 PM FITNESS STUDIES TEACHER) Yes Juhi Benson RN Note: Goal [...] on filedocumented in this encounter Care Teams Stock Driver Relationship Specialty Start Date End Date No Ref-Primary, Physician PCP - General 03/15/24 06/17/24 Mor Ramsey Medical Student 04/03/24 Case Samuel MD [address] [place] [address], [address] [place] [address] Assigned Pediatric Specialist Provider 05/18/24 Juhi Benson RN Specialty Building Guard Deputy Sheriff Hematology & Oncology 05/29/24 documented as of this encounter
--- OUTSIDE RECORDS SUMMARY | 2024-06-24 20:09 | XMS_ITS | Encounter Summary ---
Author Organization [facility] Address [address] [place] [address] Care Team Providers Care Human Resources Team Member Name Role Phone No Ref-Primary, Physician Primary Care Provider Mor Ramsey Unavailable Unavailable Case Samuel MD Unavailable [phone] Juhi Benson RN Unavailable Unavailable Reason for Visit * Reason Comments Blood Transfusion 1 unit blood Infusion Fluids and pain medi cations Encounter Details Date Type Department Care Team (Late st Contact Info) Description 05/30/2024 8:00 AM BACTERIOLOGIST SOIL Infusion Therapy Visit [facility] [address] [place] [address] Case Samuel MD [address] [place] [address], [address] [place], [place] [id number] 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); [...] on file Legal Sex Female 8:25 AM BACTERIOLOGIST SOIL Gender Identity Not on file Sexual Orientation Not on file documented as of this encounter Last Filed Vital Signs Vital Sign Reading Time Taken Comments Blood Pressure 109/72 05/30/2024 11:15 AM BACTERIOLOGIST SOIL Pulse 77 05/30/2024 11:15 AM BACTERIOLOGIST SOIL Temperature 36.5 C (97.7 F) 05/30/2024 10:21 AM BACTERIOLOGIST SOIL Respiratory Rate 16 05/30/2024 10:21 AM BACTERIOLOGIST SOIL Oxygen Saturation 95% 05/30/2024 10:21 AM BACTERIOLOGIST SOIL Inhaled Oxygen Concentration - - Weight - - Height - - Body Mass Index - - documented in this encounter Patient Instructions * Patient Instructions* Arlene Moses RN - 05/30/2024 8:00 AM BACTERIOLOGIST SOIL Dear Gianna Hernández Thank you for choosing [facility] ([facility]) for your transfusion. The following information is a summary of our appointment as well as important reminders. If you have any questions on your upcoming Specialty Infusion appointments, please call scheduling at [phone]. It was a pleasure taking care of you today. Sincerely, [facility] [address] [place] [address] ERIOLOGIST SOIL * Attachments The following attachments cannot be sent through Care Everywhere. * Blood Transfusions: General Info ([place]) documented in this encounter Progress Notes * Arlene Moses RN - 05/30/2024 8:00 AM CST Blood Product Transfusion Nursing Note: Gianna Hernández presents today to [facility] for a blood transfusion. During today's [facility] appointment orders from Dr Samuel were completed. Progress note: ID verified by name and . Assessment completed. Vitals were stable throughout time in [facility]. Verbal education given to patient/ambulatory service representative regarding transfusion and possible side effects. Patient/ambulatory service representative verbalized understanding. Supervisor In Charge present during visit today: Not Applicable. All [...] Discharge instructions were reviewed with patient Yes Patient/ambulatory service representative verbalized understanding of discharge instructions [...] By Arlene Moses RN Alyssa Sakhitab-Kerestes, RN ERIOLOGIST SOIL documented in this encounter Plan of Treatment Not on file documented as of this encounter Goals Goal Patient Goal Type Associated Problems Recent Progress Patient-Stated? 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) History of transfusion PREPARE RED BLOOD CELLS (UNIT) Routine 05/29/2024 5:12 PM BACTERIOLOGIST SOIL documented in this encounter Results * Transfuse red blood cells (unit), Sickle Cell (Hgb S) Negative (05/30/2024 10:24 AM BACTERIOLOGIST SOIL) Case Samuel MD BLOOD TRANSFUSION ORDERAB LES Final Result * Transfuse red blood cells (unit), 1 Units, Sickle Cell (Hgb S) Negative (05/30/2024 10:24 AM BACTERIOLOGIST SOIL) Case Samuel MD BLOOD TRANSFUSION ORDERAB LES Final Result * Prepare red blood cells (unit) (05/29/2024 5:12 PM BACTERIOLOGIST SOIL) Blood Component Type Red Blood Cells [facility] BLOOD BANK Product Code [id number] [facility] BLOO D BANK Unit Status Transfused [facility] BLOO D BANK Unit Number [id number] UU B LOOD BANK CROSSMATCH COMPATIBLE U BLOOD BANK CODING SYSTEM [id number] [facility] BLO OD BANK ISSUE DATE AND TIME [id number] [facility] BLOOD BANK UNIT ABO/RH A- [facility] BLOOD BANK UNIT TYPE ISBT 0600 U[facility] BL OOD BANK 05/29/2024 5:12 PM BACTERIOLOGIST SOIL Case Samuel MD BLOOD BANK PRODUCT ORDERA BLES Final Result [facility] BLOOD BANK [address] [place] [address], [facility] documented in this encounter Visit Diagnoses [...] (H),History of transfusion $Given 05/30/2024 11:18 AM BACTERIOLOGIST SOIL 5 mLs HYDROmorphone (DILAUDID) injection 2 mg 2 mg, Intravenous, EVERY 1 HOUR PRN, severe pain, moderate pain, Starting on Wed05/30/24 at 0833, For 3 dosesIndications:Sickle cell pain crisis (H) $Given 05/30/2024 10:56 AM BACTERIOLOGIST SOIL 2 mg $Given 05/30/2024 9:44 AM BACTERIOLOGIST SOIL 2 mg $Given 05/30/2024 8:39 AM BACTERIOLOGIST SOIL 2 mg lactated ringers BOLUS 1,000 mL Intravenous, 1,000 mL, ONCE, at 500 mL/hr, Administer over 2 Hours, On Wed05/30/24 at 0845, For 1 doseIndications:Sickle cell pain crisis (H) $New Bag 05/30/2024 10:24 AM BACTERIOLOGIST SOIL 500 mLs 500 mL/hr sodium chloride (PF) [...] (H),History of transfusion $Given 05/30/2024 11:18 AM BACTERIOLOGIST SOIL 20 mLs $Given 05/30/2024 10:20 AM BACTERIOLOGIST SOIL 20 mLs documented in this encounter Care Teams Human Resources Team Member Relationship Specialty Start Date End Date No Ref-Primary, Physician PCP - General 03/15/24 06/17/24 Mor Ramsey Medical Student 04/03/24 Case Samuel MD [address] [place] [address], [address] [place] [address] Assigned Pediatric Specialist Provider 05/18/24 Juhi Benson, RN Specialty Topper Press Operator Hematology & Oncology 05/29/24 documented as of this encounter
--- OUTSIDE RECORDS SUMMARY | 2024-06-24 20:09 | XMS_ITS | Encounter Summary ---
Author Organization [facility] Address [address] [place] [address]. [place] [address] Care Team Providers Care Appraiser Timber Name Role Phone No Ref-Primary, Physician Primary Care Provider Mor Ramsey Unavailable Unavailable Case Samuel MD Unavailable [phone] Juhi Benson RN Unavailable Unavailable Reason for Visit * Reason Onset Date Comments Refill Request 06/05/2024 Encounter Details Date Type Department Care Team (Late st Contact Info) Description 06/05/2024 MyC Refill [facility] [address] [place] [address] Case Samuel MD [address] [place] [address], [address] [place] [address] Refill Request Social History Tobacco [...] on file 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 Samuel CHUTE TAPPER Reviewed: Yes Send to provider: Routed to dr. Samuel and ESTEVAN Reynaga HALL INSPECTOR documented in this encounter Plan of Treatment Not on file documented as of this encounter Goals Goal Patient Goal Type Associated Problems Recent Progress Patient-Stated? Author Pain Management General On track( 025 12:40 PM POOL HALL INSPECTOR) Yes Juhi Benson, SOFIA Note: Goal [...] crisis documented in this encounter Care Teams Appraiser Timber Relationship Specialty Start Date End Date No Ref-Primary, Physician PCP - General 03/15/24 06/17/24 Mor Ramsey Medical Student 04/03/24 Case Samuel MD [address] [place] [address], [address] [place] [address] Assigned Pediatric Specialist Provider 05/18/24 Juhi Benson, SOFIA Specialty Ct Scan Technologist Hematology & Oncology 05/29/24 documented as of this encounter
--- OUTSIDE RECORDS SUMMARY | 2024-06-24 20:09 | XMS_ITS | Encounter Summary ---
Author Organization [facility] Address [address] [place] [address]. 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 Author Pain Management General On track( 025 12:40 PM COPYRIGHT MANAGER) Yes Juhi Benson, RN Note: Goal [...] on filedocumented in this encounter Care Teams Mixer And Blender Relationship Specialty Start Date End Date No Ref-Primary, Physician PCP - General 03/15/24 06/17/24 Mor Ramsey Medical Student 04/03/24 Case Samuel MD [address] [place] [address], [address] [place] [address] Assigned Pediatric Specialist Provider 05/18/24 documented as of this encounter
--- OUTSIDE RECORDS SUMMARY | 2024-06-24 20:09 | XMS_ITS | Encounter Summary ---
Author Organization [facility] Address [address] [place] [address]. 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 Author Pain Management General On track( 025 12:40 PM PAINTER AIRBRUSH) Yes Juhi Benson RN Note: Goal Statement: [...] on filedocumented in this encounter Care Teams Director Plans Relationship Specialty Start Date End Date No Ref-Primary, Physician PCP - General 03/15/24 06/17/24 Mor Ramsey Medical Student 04/03/24 Case Samuel MD [address] [place] [address], [address] [place] [address] Assigned Pediatric Specialist Provider 05/18/24 Juhi Benson RN Specialty New Account Interviewer Hematology & Oncology 05/29/24 documented as of this encounter
--- OUTSIDE RECORDS SUMMARY | 2024-06-24 20:09 | XMS_ITS | Encounter Summary ---
Author Organization [place] Address Formerly [facility]0 [facility] [place] [address] Care Team Providers Care Operations Director Name Role Phone No Ref-Primary, Physician Primary Care Provider Mor Ramsey Unavailable Unavailable Case Samuel MD Unavailable [phone] Juhi Benson RN Unavailable Unavailable Reason for Referral * Mental Health Outpatient (Urgent: 3-5 Days) - Pending Review Specialty Diagnoses / Procedures Referred By Contac t Referred To Contact Behavioral Health Diagnoses Severe episode of recurrent major depressive disorder, without psychotic features (H) Case Samuel MD [address] [facility] [address], [address] [place] [address] Phone: tel: fax: Referral ID Status Reason Start Date Expiration Date V isits Requested Visits Authorized [id number] Pending Review 05/29/2024 05/29/2025 1 1 Question Answer Services: Assess/Evaluate for appropriate service (non-medication assessment) My Clinical Question Is: History of chronic pain with depression as major component combined with sickle cell disease and difficulty adjusting to [place]. Requesting evaluation for mental health diagnosis and management. Patient Scheduling Instructions: [facility] will call you to coordinate your care as prescribed by your provider. If you don't hear from a representative government relations within 2 business days, please call . [...] plan with any benefit or coverage questions. [facility] will call you to coordinate your care as prescribed by your provider. If you don't hear from a representative government relations within 2 business days, please call . N UNLOADER MACHINE Reason for Visit * Reason Comments Port Draw Labs drawn via port by RN in lab, vitals taken. Oncology Clinic Visit RTN Sickle cell Encounter Details Date Type Department Care Team (Late st Contact Info) Description 05/29/2024 11:30 AM GRAIN UNLOADER MACHINE Oncology Visit [facility] [address] [place] [address] Case Samuel MD [address] [place] [address] [address], [address] [place], [place] [id number] Severe episode of recurrent major depressive disorder, [...] on file Legal Sex Female 8:25 AM GRAIN UNLOADER MACHINE Gender Identity Not on file Sexual Orientation Not on file documented as of this encounter Last Filed Vital Signs Vital Sign Reading Time Taken Comments Blood Pressure 98/67 05/29/2024 11:09 AM GRAIN UNLOADER MACHINE Pulse 106 05/29/2024 11:09 AM GRAIN UNLOADER MACHINE Temperature 37.1 C (98.7 F) 05/29/2024 11:09 AM GRAIN UNLOADER MACHINE Respiratory Rate 18 05/29/2024 11:09 AM GRAIN UNLOADER MACHINE Oxygen Saturation 96% 05/29/2024 11:09 AM GRAIN UNLOADER MACHINE Inhaled Oxygen Concentration - - Weight 54.6 kg (120 lb 6.4 oz) 05/29/2024 11:09 AM GRAIN UNLOADER MACHINE Height - - Body Mass Index 22.75 05/29/2024 12:01 AM GRAIN UNLOADER MACHINE documented in this encounter Progress Notes * [...] it has been hard to transition to [place], especially in winter with a toddler. She [...] She said that she was born in [place] but moved throughout her childhood because her dad was in the . She is the youngest of 9 children she said, though she is the only one with sickle cell disease. Among other places, she was living in [place] for a time and then moved to [place]. It was there that shemet her boyfriend. She ultimately moved back to [place] and he came with her. It was there that they had a daughter Chanda, now 2 years old. That was a difficult for her, and she feelslike she never wants to be again. She was living in [place], [place] and receiving care at [facility], though she did not get the sense that commissioner of internal revenue there was super comfortable with sickle cell [...] about 3 weeks ago. She moved to [place] about 2 months ago. Her boyfriend is [...] worked up for symptomatic gallstones back in [place], but there were some delays in getting a cholecystectomy and by the time it was getting scheduled, they were moving to [place]. She reports that she has had a [...] them both so she can be a mauu-nq-jxla mom. Sickle Cell Disease Comprehensive Checklist Stroke/silent [...] titrate as needed and notify the primary commissioner of internal revenue via [employer] message if changes to the plan below are needed. Also please note that there is a mental health component to her pain, particularly in terms of adjustment to [place] which is likely to make her pain worse.. 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 She is 1 of 9 [...] Social Connections: Socially Integrated (03/28/2024) [facility] Social Connections Do you often feel lonely [...] Rate 86 BPM Atrial Rate 86 BPM WI Interval 154 ms QRS Duration 78 ms QT 370 ms QTc 442 ms P Cross Anchor 18 degrees R AXIS 55 degrees T Cross Anchor 25 degrees Interpretation ECG Sinus rhythm Nonspecific T wave abnormality Abnormal ECG When compared with ECG of 14-May-2024 22:12, Nonspecific T wave abnormality now evident in Inferior leads Confirmed by SEE ED PROVIDER NOTE FOR, ECG INTERPRETATION (4000), editor producer Neeraj Allison ([id number]) on 05/20/2024 7:48:17 AM Basic metabolic panel [...] Absolute NRBCs 0.2 10e3/uL Extra Green Top ([place] Heparin) Tube Collection Time: 05/20/24 9:09 AM Result Value Ref Range Hold Specimen [facility] Basic metabolic panel Collection Time: 05/20/24 9:09 [...] Rate 103 BPM Atrial Rate 103 BPM WI Interval 124 ms QRS Duration 80 ms QT 316 ms QTc 413 ms P Cross Anchor 82 degrees R AXIS 90 degrees T Cross Anchor 70 degrees Interpretation ECG Sinus tachycardia Rightward axis Borderline ECG When compared with ECG of 20-May-2024 07:36, Nonspecific T wave abnormality no longer evident in Anterior leads Confirmed by SEE ED PROVIDER NOTE FOR, ECG INTERPRETATION (4000), editor producer Leticia Warner ([id number]) on 05/22/2024 4:13:58 PM Basic metabolic panel [...] None Seen Elliptocytes Slight (A) None Seen [facility] Bodies Present (A) None Seen Polychromasia Slight (A) None Seen RBC Fragments Slight (A) None Seen Sickle Cells Moderate (A) None Seen Target Cells Slight (A) None Seen ECG 12-LEAD WITH MUSE (LHE) Collection Time: 05/23/24 6:54 PM Result Value Ref Range Systolic Blood Pressure mmHg Diastolic Blood Pressure mmHg Ventricular Rate 77 BPM Atrial Rate 77 BPM WI Interval 160 ms QRS Duration 82 ms QT 362 ms QTc 409 ms P Cross Anchor 61 degrees R AXIS 92 degrees T Cross Anchor 49 degrees Interpretation ECG Sinus rhythm Rightward axis Borderline ECG When compared with ECG of 22-May-2024 15:14, Nonspecific T wave abnormality no longer evident in Inferior leads Confirmed by SEE ED PROVIDER NOTE FOR, ECG INTERPRETATION (4000), editor producer SELMA GARRISON ([id number]) on 05/23/2024 7:30:33 PM CBC (+ platelets, [...] Rate 91 BPM Atrial Rate 91 BPM WI Interval 142 ms QRS Duration 80 ms QT 352 ms QTc 432 ms P Cross Anchor 39 degrees R AXIS 62 degrees T Cross Anchor 23 degrees Interpretation ECG Sinus rhythm Nonspecific T wave abnormality Abnormal ECG When compared with ECG of 23-May-2024 18:54, Nonspecific T wave abnormality now evident in Inferior leads Nonspecific T wave abnormality now evident in Anterior leads Confirmed by SEE ED PROVIDER NOTE FOR, ECG INTERPRETATION (4000), editor producer BEN PRAKASH ([id number]) on 05/27/2024 12:22:37 PM Comprehensive metabolic panel [...] female who recently started receiving care at [facility] for sickle cell disease, [...] has been a regular visitor to the [facility] emergency department as well, and [...] just the SCD. Her adjustment to the [facility] has been challenging, particularly at this time of year and being at home with their daughter Today, we focused on the mental health, including both psychological and psychiatric care. In my discussions with the emergency department colleagues at [facility], I stressed that a sustainable [...] think outside the box. - Mental health senior business analyst referral placed HbSS Disease with several complications [...] around the hip and femur strong. -Orthopedic senior business analyst referral placed. Will defer to them for [...] per the note Case Samuel MD Classical Director Of Business Systems Division of Hematology, Oncology, and Transplantation [facility] [place] The longitudinal plan of care for the diagnosis(es)/condition(s) as documented were addressed during this visit. Due to the added complexity in care, I will continue to support Gianna in the subsequent management and with ongoing continuity of care. N UNLOADER MACHINE documented in this encounter Nursing Notes * [...] checked into next appt. Jenifer Sheffield RN N UNLOADER MACHINE * Laura Rg - 05/29/2024 11:30 AM [...] not needed today. Pharmacy name entered into [employer]: [facility] [address] [place], [place] - [phone] [facility] - [place], [place] - [address] [place] [address] Frailty Screening: Is the patient here for a new oncology consult visit in cancer care? 2. No Clinical concerns:Provider came in during rooming. Laura Rg N UNLOADER MACHINE documented in this encounter Plan of Treatment Scheduled Referrals Name Type Priority Associated Diagnoses Orde r Schedule Adult Mental Health Trouble Locater Referral Referral Urgent: 3-5 Days Severe episode of recurrent major depressive disorder, without psychotic features (H) Expected: 05/29/2024 (Approximate), Expires: 05/29/2025 documented as of this encounter Goals Goal Patient Goal Type Associated Problems Recent Progress Patient-Stated? Author Pain Management General On track( 025 12:40 PM GRAIN UNLOADER MACHINE) Yes Juhi Benson, SOFIA Note: Goal Statement: [...] AND PLATELET MORPHOLOGY Routine 05/29/2024 11:23 AM GRAIN UNLOADER MACHINE CBC WITH PLATELETS AND DIFFERENTIAL Routine 05/29/2024 11:23 AM GRAIN UNLOADER MACHINE TYPE AND SCREEN, ADULT Add-On 11:23 AM GRAIN UNLOADER MACHINE History of transfusion BILL ONLY- CAPILLARY ELECTROPHORESIS Routine 05/29/2024 11:23 AM GRAIN UNLOADER MACHINE BILL ONLY- SICKLE SOLUBILITY BILL Routine 05/29/2024 11:23 AM GRAIN UNLOADER MACHINE ROUTINE UA WITH MICROSCOPIC REFLEX TO CULTURE Routine 05/29/2024 11:23 AM GRAIN UNLOADER MACHINE CBC WITH PLATELETS & DIFFERENTIAL Routine 05/29/2024 11:23 AM GRAIN UNLOADER MACHINE GENOTYPE RED BLOOD CELL Routine 05/29/19 11:23 AM GRAIN UNLOADER MACHINE History of transfusion RETICULOCYTE COUNT Routine 05/29/2024 11 :23 AM GRAIN UNLOADER MACHINE HEMOGLOBIN EVAL REFLEX TO ELP OR RBC SOLUBILITY Routine 05/29/2024 11:23 AM GRAIN UNLOADER MACHINE FERRITIN Routine 05/29/2024 11:23 AM GRAIN UNLOADER MACHINE COMPREHENSIVE METABOLIC PANEL Routine 05/29/2024 11:23 AM GRAIN UNLOADER MACHINE ABO/RH TYPE AND SCREEN Routine 11:23 AM GRAIN UNLOADER MACHINE History of transfusion URINE CULTURE Routine 05/29/2024 11:23 AM GRAIN UNLOADER MACHINE documented in this encounter Results * HGB Eval Reflex to ELP or RBC Solubility (05/29/2024 11:23 AM GRAIN UNLOADER MACHINE) Alpha Globin (HBA1 and HBA2) DD Bill Billed 05/31/2024 2:46 PM GRAIN UNLOADER MACHINE [employer] [facility] Comment: Performed By: [facility] [address] [place] [id number] Underground Heavy Equipment Operator: Devon Healy MD, PhD CLIA Number: [id number] Blood VENOUS LINE / Unknown IVAD (Port) / Unknown 05/29/2024 11:23 AM GRAIN UNLOADER MACHINE 05/29/2024 11:30 AM GRAIN UNLOADER MACHINE us Case Samuel MD LAB CHARGE PERFORMABLES F inal Result [employer] [address] [place] [phone], [facility] [phone] * Bill Only- Sickle Solubility Bill (05/29/2024 11:23 AM GRAIN UNLOADER MACHINE) Sickle Solubility Reflex Bill Billed 05/31/2024 2:46 PM GRAIN UNLOADER MACHINE [facility] Comment: Performed By: [facility] [address] [place] [address] Underground Heavy Equipment Operator: Devon Healy MD, PhD CLIA Number: [id number] Blood VENOUS LINE / Unknown IVAD (Port) / Unknown 05/29/2024 11:23 AM GRAIN UNLOADER MACHINE 05/29/2024 11:30 AM GRAIN UNLOADER MACHINE Case Samuel MD LAB CHARGE PERFORMABLES F inal Result Performing Organization Address City/[facility]/ZIP Co de Phone Number [employer] [facility] [address] [place] [address], [facility] [phone] * Adult Type and Screen (05/29/2024 11:23 AM GRAIN UNLOADER MACHINE) ABO/RH(D) A POS 05/28/2024 6:00 PM GRAIN UNLOADER MACHINE [facility] Antibody Screen Negative Negative 05/28/2024 6:00 PM GRAIN UNLOADER MACHINE [facility] SPECIMEN EXPIRATION DATE [id number] 05/28/2024 6:00 PM GRAIN UNLOADER MACHINE [facility] Blood VENOUS LINE / Unknown IVAD (Port) / Unknown 05/29/2024 11:23 AM GRAIN UNLOADER MACHINE 05/29/2024 11:29 AM GRAIN UNLOADER MACHINE Case Samuel MD LAB - BLOOD BANK TEST ORD ER Final Result Performing Organization Address City/[facility]/ZIP Co de Phone Number [facility] [address] [place] [address] * Urine Culture (05/29/2024 11:23 AM GRAIN UNLOADER MACHINE) Culture <10,000 CFU/mL Mixture of Urogenital Vickie 05/30/2024 9:45 AM GRAIN UNLOADER MACHINE [facility] Urine URINE SPECIMEN OBTAINED BY CLEAN CATCH PROCEDURE / Unknown Non-blood Collection / Unknown 05/29/2024 11:23 AM GRAIN UNLOADER MACHINE 05/29/2024 11:41 AM GRAIN UNLOADER MACHINE Case Samuel MD LAB - MICRO GENERAL ORDER SYD Final Result [facility] Inf. Diseases Diag. Lab [address] [facility] [place] [address] * (ABNORMAL) RBC and Platelet Morphology (05/29/2024 11:23 AM GRAIN UNLOADER MACHINE) RBC Morphology Confirmed RBC Indices 05/29/2024 12:33 PM GRAIN UNLOADER MACHINE [facility] - CORE LAB Platelet Assessment Automated Count Confirmed. Platelet morphology is normal. Automated Count Confirmed. Platelet morphology is normal. 05/29/2024 12:33 PM GRAIN UNLOADER MACHINE [facility] - [facility]ORE LAB Polychromasia Moderate(A) None Seen 05/29/2024 12:33 PM GRAIN UNLOADER MACHINE [facility] Sickle Cells Moderate(A) None Seen 05/29/2024 12:33 PM GRAIN UNLOADER MACHINE [facility] Target Cells Slight(A) None Seen 05/29/2024 12:33 PM GRAIN UNLOADER MACHINE [facility] - C[facility] LAB Teardrop Cells Slight(A) None Seen 05/29/2024 12:33 PM GRAIN UNLOADER MACHINE [facility] Blood VENOUS LINE / Unknown IVAD (Port) / Unknown 05/29/2024 11:23 AM GRAIN UNLOADER MACHINE 05/29/2024 11:29 AM GRAIN UNLOADER MACHINE Case Samuel MD LAB - BLOOD ORDERABLES Fi nal Result [facility] - CORE LAB [facility] [place] [address] [place] [address] 1st [place] [address] * (ABNORMAL) CBC with platelets and differential (05/29/2024 11:23 AM GRAIN UNLOADER MACHINE) WBC Count 15.8(H) 4.0 - 11.0 10e3/uL 05/29/2024 12:37 PM GRAIN UNLOADER MACHINE [facility] RBC Count 2.11(L) 3.80 - 5.20 10e6/uL 05/29/2024 12:37 PM GRAIN UNLOADER MACHINE [facility] Hemoglobin 6.7(LL) 11.7 - 15.7 g/dL 05/29/2024 12:37 PM GRAIN UNLOADER MACHINE [facility] Hematocrit 19.2(L) 35.0 - 47.0 % 05/29/2024 12:37 PM [facility] - CORE LAB MCV 91 78 - 100 fL 05/29/2024 12:37 PM [facility] MCH 31.8 26.5 - 33.0 pg 05/29/2024 12:37 PM [facility] MCHC 34.9 31.5 - 36.5 g/dL 05/29/2024 12:37 PM [facility] RDW 23.1(H) 10.0 - 15.0 % 05/29/2024 12:37 PM [facility] Platelet Count 417 150 - 450 10e3/uL 05/29/2024 12:37 PM [facility] % Neutrophils 56 % 05/29/2024 12:37 PM [facility] % Lymphocytes 25 % 05/29/2024 12:37 PM [facility] % Monocytes 15 % 05/29/2024 12:37 PM [facility] % Eosinophils 2 % 05/29/2024 12:37 PM [facility] % Basophils 1 % 05/29/2024 12:37 PM [facility] % Immature Granulocytes 1 % 05/29/2024 12:37 PM [facility] NRBCs per 100 WBC 2(H) <1 /100 025 12:37 PM [facility] Absolute Neutrophils 8.8(H) 1.6 - 8.3 10e3/uL 05/29/2024 12:37 PM [facility] Absolute Lymphocytes 4.0 0.8 - 5.3 10e3/uL 05/29/2024 12:37 PM [facility] Absolute Monocytes 2.4(H) 0.0 - 1.3 10e3/uL 05/29/2024 12:37 PM [facility] Absolute Eosinophils 0.3 0.0 - 0.7 10e3/uL 05/29/2024 12:37 PM [facility] Absolute Basophils 0.2 0.0 - 0.2 10e3/uL 05/29/2024 12:37 PM [facility] Absolute Immature Granulocytes 0.2 <=0.4 10e3/uL 05/29/2024 12:37 PM GRAIN UNLOADER MACHINE [facility] Absolute NRBCs 0.2 10e3/uL 05/29/2024 12:37 PM GRAIN UNLOADER MACHINE [facility] Blood VENOUS LINE / Unknown IVAD (Port) / Unknown 05/29/2024 11:23 AM GRAIN UNLOADER MACHINE 05/29/2024 11:29 AM GRAIN UNLOADER MACHINE Case Samuel MD LAB - BLOOD ORDERABLES Fi nal Result [facility] Clinics and Surgery [facility] [address] [place] 1st [place] [address] * Genotype Red Blood Cell (05/29/2024 11:23 AM GRAIN UNLOADER MACHINE) Pathologist [facility] See Scanned Result GENOTYPE RED BLOOD CELL-Scanned 05/31/2024 10:16 AM GRAIN UNLOADER MACHINE [facility] Blood VENOUS LINE / Unknown IVAD (Port) / Unknown 05/29/2024 11:23 AM GRAIN UNLOADER MACHINE 05/29/2024 11:29 AM GRAIN UNLOADER MACHINE us Case Samuel MD LAB - BLOOD ORDERABLES Fi nal Result [facility] [address] [place] [address], [facility] [phone] * (ABNORMAL) HGB Eval Reflex to ELP or RBC Solubility (05/29/2024 11:23 AM GRAIN UNLOADER MACHINE) Hemoglobin A 15.0(L) 95.0 - 97.9 % 05/31/2024 2:46 PM GRAIN UNLOADER MACHINE [facility] Hemoglobin A2 3.0 2.0 - 3.5 % 05/31/2024 2:46 PM GRAIN UNLOADER MACHINE [facility] Hemoglobin F 10.8(H) 0.0 - 2.1 % 05/31/2024 2:46 PM GRAIN UNLOADER MACHINE [facility] Hemoglobin S 71.2(H) 0.0 - 0.0 % 05/31/2024 2:46 PM GRAIN UNLOADER MACHINE [facility] Hemoglobin C 0.0 0.0 - 0.0 % 05/31/2024 2:46 PM GRAIN UNLOADER MACHINE [facility] Hemoglobin E 0.0 0.0 - 0.0 % 05/31/2024 2:46 PM GRAIN UNLOADER MACHINE [facility] Hemoglobin - Other 0.0 0.0 - 0.0 % 05/31/2024 2:46 PM GRAIN UNLOADER MACHINE [facility] Hemoglobin Evaluation See Note 05/31/2024 2:46 PM GRAIN UNLOADER MACHINE [facility] Comment: Impression: Hb S present [...] Globin (HBA1 and HBA2) Deletion/Duplication ([facility] test #[id number]) should be considered. Hb S/beta-plus thalassemia is typically characterized by more Hb S than Hb A with the presence of microcytosis. If microcytosis is present and Hb S/beta-plus thalassemia is suspected, Beta Globin (HBB) Sequencing ([facility] test #[id number]) is suggested. Hemoglobin analysis should be offered [...] developed and its performance characteristics determined by [facility]. It has not been cleared or approved by the U.S. Food and Drug Administration. This test was performed in a CLIA-certified laboratory and is intended for clinical purposes. Sickle Cell Solubility Reflex Positive(A) 05/31/2024 2:46 PM GRAIN UNLOADER MACHINE [email or web address] Comment: INTERPRETIVE INFORMATION: Sickle Cell Solubility Reflex Not Performed: Solubility testing for Hemoglobin S not indicated. 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 Additional charges apply. Conf Previous: Positive for Hemoglobin S by HPLC. Solubility testing performed previously and not repeated with this submission. Hgb Capillary Electrophoresis Reflex Performed 05/31/2024 2:46 PM GRAIN UNLOADER MACHINE [facility] Comment: INTERPRETIVE INFORMATION: Hgb Capillary Electrophoresis Reflex Not Performed: Confirmation by Capillary Electrophoresis not indicated. Performed: Results confirmed by Capillary Electrophoresis. Additional charges apply. Conf Previous: Capillary Electrophoresis confirmation performed as part of a previous submission. Confirmation not repeated with this submission. Performed By: [facility] [address] [place] [id number] [employer] Heavy Equipment Operator: Devon Healy MD, PhD CLIA Number: [id number] Blood VENOUS LINE / Unknown IVAD (Port) / Unknown 05/29/2024 11:23 AM GRAIN UNLOADER MACHINE 05/29/2024 11:30 AM GRAIN UNLOADER MACHINE Case Samuel MD LAB - BLOOD ORDERABLES Fi nal Result Performing Organization Address City/[facility]/ZIP Co de Phone Number [employer] [address] [place] [phone] [phone] * (ABNORMAL) Ferritin (05/29/2024 11:23 AM GRAIN UNLOADER MACHINE) Pathologist [facility] Ferritin 1,559(H) 6 - 175 ng/mL 05/29/2024 12:43 PM GRAIN UNLOADER MACHINE [facility] Blood VENOUS LINE / Unknown IVAD (Port) / Unknown 05/29/2024 11:23 AM GRAIN UNLOADER MACHINE 05/29/2024 11:29 AM GRAIN UNLOADER MACHINE Case Samuel MD LAB - BLOOD ORDERABLES Fi nal Result [facility] [address] 1st [place] [address] * (ABNORMAL) Routine UA with micro reflex to culture (05/29/2024 11:23 AM GRAIN UNLOADER MACHINE) Color Urine Yellow Colorless, Straw, Light Yellow, Yellow 05/29/2024 11:41 AM GRAIN UNLOADER MACHINE [facility] Appearance Urine Slightly Cloudy(A) Clear 05/29/2024 11:41 AM [facility] Glucose Urine Negative Negative mg/dL 05/29/2024 11:41 AM [facility] Bilirubin Urine Negative Negative 11:41 AM [facility] Ketones Urine Negative Negative mg/dL 05/29/2024 11:41 AM [facility] Specific [place] Urine 1.013 1.003 - 1.035 05/29/2024 11:41 AM [facility] Blood Urine Negative Negative 05/29/2024 11:41 AM [facility] pH Urine 7.0 5.0 - 7.0 05/29/2024 11:41 AM [facility] Protein Albumin Urine Negative Negative mg/dL 05/29/2024 11:41 AM [facility] Urobilinogen Urine Normal Normal, 2.0 mg/dL 05/29/2024 11:41 AM [facility] Nitrite Urine Negative Negative 05/29/2024 11:41 AM [facility] Leukocyte Esterase Urine Moderate(A) Negative 05/29/2024 11:41 AM GRAIN UNLOADER MACHINE [facility] Mucus Urine Present(A) None Seen /LPF 05/29/2024 11:41 AM [facility] RBC Urine 6(H) <=2 /HPF 05/29/2024 11:41 AM [facility] WBC Urine 3 <=5 /HPF 05/29/2024 11:41 AM [facility] Squamous Epithelials Urine 18(H) <=1 /HPF 05/29/2024 11:41 AM [facility] Urine URINE SPECIMEN OBTAINED BY CLEAN CATCH PROCEDURE / Unknown Non-blood Collection / Unknown 05/29/2024 11:23 AM GRAIN UNLOADER MACHINE 05/29/2024 11:29 AM GRAIN UNLOADER MACHINE Narrative [facility] - 05/29/2024 11:41 AM GRAIN UNLOADER MACHINE Urine Culture ordered based on laboratory criteria us Case Samuel MD LAB - URINE ORDERABLES Fi nal Result [facility] [address] 1st [place] [address] * (ABNORMAL) Comprehensive metabolic panel (05/29/2024 11:23 AM [facility]) Sodium 139 135 - 145 mmol/L 05/29/2024 11:58 AM [facility] Potassium 4.2 3.4 - 5.3 mmol/L 05/29/2024 11:58 AM [facility] Carbon Dioxide (CO2) 24 22 - 29 mmol/L 05/29/2024 11:58 AM [facility] Anion Gap 10 7 - 15 mmol/L 05/29/2024 11:58 AM [facility] Urea Nitrogen 9.2 6.0 - 20.0 mg/dL 05/29/2024 11:58 AM [facility] Creatinine 0.75 0.51 - 0.95 mg/dL 05/29/2024 11:58 AM [facility] GFR Estimate >90 >60 mL/min/1.7 3m2 05/29/2024 11:58 AM [facility] Comment:eGFR calculated usin g 2020 CKD-EPI equation. Calcium 8.9 8.8 - 10.4 mg/dL 05/29/2024 11:58 AM [facility] Chloride 105 98 - 107 mmol/L 05/29/2024 11:58 AM [facility] Glucose 109(H) 70 - 99 mg/dL 05/29/2024 11:58 AM [facility] Alkaline Phosphatase 83 40 - 150 U/L 05/29/2024 11:58 AM [facility] AST 49(H) 0 - 45 U/L 05/29/2024 11:58 AM [facility] ALT 21 0 - 50 U/L 05/29/2024 11:58 AM [facility] Protein Total 7.3 6.4 - 8.3 g/dL 05/29/2024 11:58 AM [facility] Albumin 4.1 3.5 - 5.2 g/dL 05/29/2024 11:58 AM [facility] Bilirubin Total 2.2(H) <=1.2 mg/dL 05/29/2024 11:58 AM GRAIN UNLOADER MACHINE [facility] Blood VENOUS LINE / Unknown IVAD (Port) / Unknown 05/29/2024 11:23 AM GRAIN UNLOADER MACHINE 05/29/2024 11:29 AM GRAIN UNLOADER MACHINE Case Samuel MD LAB - BLOOD ORDERABLES Fi nal Result Performing Organization Address [facility] de Phone Number [facility] [address] [place] [address] * (ABNORMAL) Reticulocyte count (05/29/2024 11:23 AM GRAIN UNLOADER MACHINE) [facility] % Reticulocyte 29.8(H) 0.5 - 2.0 % 05/29/2024 12:00 PM GRAIN UNLOADER MACHINE [facility] Absolute Reticulocyte 0.631(H) 0.025 - 0.095 10e6/uL 05/29/2024 12:00 PM GRAIN UNLOADER MACHINE [facility] Blood VENOUS LINE / Unknown IVAD (Port) / Unknown 05/29/2024 11:23 AM GRAIN UNLOADER MACHINE 05/29/2024 11:29 AM GRAIN UNLOADER MACHINE Case Samuel MD LAB - BLOOD ORDERABLES Fi nal Result Performing Organization Address [facility] de Phone Number [facility] [address] [place] [address] documented in this encounter Visit Diagnoses Diagnosis [...] Wed05/29/24 at 1130 $Given 05/29/2024 11:29 AM GRAIN UNLOADER MACHINE 5 mLs sodium chloride (PF) 0.9% PF flush 20 mL 20 mL, Intravenous, ONCE, On 05/29/24 at 1130, For 1 dose $Given 05/29/2024 11:30 AM GRAIN UNLOADER MACHINE 20 mLs documented in this encounter Care Teams Operations Director Relationship Specialty Start Date End Date No Ref-Primary, Physician PCP - General 03/15/24 06/17/24 Mor Ramsey Medical Student 04/03/24 Case Samuel MD [address] [place] [address] 484, [address] [place] [address] Assigned Pediatric Specialist Provider 05/18/24 Juhi Benson, RN Specialty District Court Judge Hematology & Oncology 05/29/24 documented as of this encounter
--- OUTSIDE RECORDS SUMMARY | 2024-06-24 20:09 | XMS_ITS | Encounter Summary ---
Author Organization [facility] Address [address] [place] [address]. [place] [address] Care Team Providers Care Staff Air Tactical Officer Name Role Phone No Ref-Primary, Physician Primary Care Provider Mor Ramsey Unavailable Unavailable Case Samuel MD Unavailable [phone] Juhi Benson RN Unavailable Unavailable Reason for Visit * Reason Comments Sickle Cell Pain Crisis Encounter Details Date Type Department Care Team (Late st Contact Info) Description 06/01/2024 11:41 PM [facility] - 06/02/2024 2:35 AM [facility] Emergency [facility] Emergency Room [address] [place] [address] Noel Pinzon MD [address] [place] [address] Sickle cell pain crisis (H) Discharge Disposition: [...] on file Legal Sex Female 8:25 AM [facility] C[facility] OWNER Gender Identity Not on file Sexual Orientation Not on file documented as of this encounter Last Filed Vital Signs Vital Sign Reading Time Taken Comments Blood Pressure 117/69 06/02/2024 2:15 AM [facility]NER Pulse 73 06/02/2024 2:15 AM [facility] Temperature 36.7 C (98.1 F) 06/01/2024 10:44 PM [facility] Respiratory Rate 15 06/02/2024 2:00 AM [facility] Oxygen Saturation 95% 06/02/2024 2:15 AM [facility] Inhaled Oxygen Concentration - - Weight 54.4 kg (120 lb) 06/01/2024 10:44 PM [facility] Height - - Body Mass Index 22.67 05/31/2024 9:39 PM [facility] documented in this encounter Discharge Instructions * Discharge Instructions* Noel Pinzon MD - 06/02/2024 1:57 AM [facility] Continue outpatient follow up and cares with your specialist. director of group sales your prescription for dilaudid tomorrow and take as directed. [facility] C[facility] OWNER [facility]NER documented in this encounter Medications at Time [...] questions were answered. Vitally stable upon discharge. [facility] OWNER [facility]NER * Noel Pinzon MD - 06/01/2024 11:07 PM CST Emergency Department Encounter Evaluation Date & Time: No admission date for patient encounter. CHIEF COMPLAINT: Sickle Cell Pain Crisis Triage Note:PT is coming in tonight for a sickle cell crisis. Pt has been waiting for her pharmacy to fill her RX. They stated that pharmacy might have the RX tomorrow. No OTC medication CARPENTER INSPECTOR. ED COURSE & MEDICAL DECISION MAKING: Pt [...] history is provided by the patient. No modern languages professor was used. Gianna Hernández is a 29 [...] my direction. Noel Pinzon DO Emergency Medicine [facility] EM[facility] 06/01/2024 11:07 PM Noel Pinzon MD 06/02/24 0236 [facility]NER * Aminata Farley, SOFIA - 06/01/2024 10:45 PM CST PT is coming in tonight for a sickle cell crisis. Pt has been waiting for her pharmacy to fill her RX. They stated that pharmacy might have the RX tomorrow. No OTC medication CARPENTER INSPECTOR. Triage Assessment (Adult) Row Name 06/01/24 2244 Triage Assessment Airway WDL WDL Respiratory WDL Respiratory WDL WDL Skin Circulation/Temperature WDL Skin Circulation/Temperature WDL WDL Cardiac WDL Cardiac WDL WDL Peripheral/Neurovascular WDL Peripheral Neurovascular WDL WDL Cognitive/Neuro/Behavioral WDL Cognitive/Neuro/Behavioral WDL WDL [facility] CENTER OWNER documented in this encounter Plan of Treatment Not on file documented as of this encounter Goals Goal Patient Goal Type Associated Problems Recent Progress Patient-Stated? Author Pain Management General On track( 025 12:40 PM [facility]NER) Yes Juhi Benson, RN Note: Goal Statement: [...] For 1 dose $Given 06/02/2024 1:17 AM [facility]NER 50 mg heparin lock flush 10 unit/mL [...] each port lumen $Given 06/02/2024 2:29 AM [facility]NER 5 mLs HYDROmorphone (DILAUDID) injection 2 mg 2 mg, Intravenous, ONCE, On Citlali 06/01/24 at 2330, For 1 dose $Given 06/02/2024 12:07 AM [facility]NER 2 mg HYDROmorphone (DILAUDID) injection 2 mg 2 mg, Intravenous, EVERY 1 HOUR PRN, severe pain, Starting on Wed06/01/24 at 2308, For 2 doses $Given 06/02/2024 2:17 AM [facility]NER 2 mg $Given 06/02/2024 1:16 AM [facility]NER 2 mg lactated ringers BOLUS 1,000 mL Intravenous, 1,000 mL, ONCE, On Citlali 06/01/24 at 2330, For 1 dose $New Bag 06/02/2024 12:06 AM [facility]NER 1,000 mLs ondansetron (ZOFRAN) injection 8 mg 8 mg, Intravenous, ONCE, Administer over 2-5 Minutes, On Citlali 06/01/24 at 2330, For 1 dose $Given 06/02/2024 12:06 AM [facility] 8 mg sodium chloride (PF) 0.9% PF [...] each port lumen. $Given 06/02/2024 12:12 AM [facility]NER 20 mLs documented in this encounter Active and Recently Administered Medications Times are shown in [facility]NER. Scheduled Medication Order 05/31/2024 06/01/2024 06/02/2024 diphenhydrAMINE [...] lumen documented in this encounter Care Teams Staff Air Tactical Officer Relationship Specialty Start Date End Date No Ref-Primary, Physician PCP - General 03/15/24 06/17/24 Mor Ramsey Medical Student 04/03/24 Case Samuel MD [address] [place] [address] 484, [address] [place] [address] Assigned Pediatric Specialist Provider 05/18/24 Juhi Benson, RN Specialty Syrup Machine Laborer Hematology & Oncology 05/29/24 documented as of this encounter
--- OUTSIDE RECORDS SUMMARY | 2024-06-24 20:09 | XMS_ITS | Encounter Summary ---
Author Organization [facility] Address [address] [place] [address]. [place] [address] Care Team Providers Care Title Specialist Name Role Phone No Ref-Primary, Physician Primary Care Provider Mor Ramsey Unavailable Unavailable Case Samuel MD Unavailable [phone] Juhi Benson RN Unavailable Unavailable Reason for Visit * Reason Comments Sickle Cell Pain Crisis Chest Pain Encounter Details Date Type Department Care Team (Late st Contact Info) Description 06/05/2024 11:41 AM TRIP FOLLOWER - 06/05/2024 3:28 PM [facility] Room [address] [place] [address] Stiven Madsen MD [address], [place] [address] Star Gifford MD [address] [place], [place] [id number] Sickle cell pain crisis (H) Discharge Disposition: [...] on file Legal Sex Female 8:25 AM TRIP FOLLOWER Gender Identity Not on file Sexual Orientation Not on file documented as of this encounter Last Filed Vital Signs Vital Sign Reading Time Taken Comments Blood Pressure 114/67 06/05/2024 3:00 PM TRIP FOLLOWER Pulse 74 06/05/2024 3:00 PM TRIP FOLLOWER Temperature 36.8 C (98.3 F) 06/05/2024 11:37 AM TRIP FOLLOWER Respiratory Rate 18 06/05/2024 11:37 AM TRIP FOLLOWER Oxygen Saturation 99% 06/05/2024 3:00 PM TRIP FOLLOWER Inhaled Oxygen Concentration - - Weight 52.2 kg (115 lb) 06/05/2024 11:37 AM TRIP FOLLOWER Height 154.9 cm (5' 1) 06/05/2024 11:37 AM TRIP FOLLOWER Body Mass Index 21.73 06/05/2024 11:37 AM TRIP FOLLOWER documented in this encounter Discharge Instructions * Discharge Instructions* Stiven Madsen MD - 06/05/2024 12:59 PM TRIP FOLLOWER You were seen in the emergency department for a pain crisis. You were given medications and IV fluids. Please continue to follow-up with your established executive relations specialist after this ED visit. FOLLOWER documented in this encounter Medications at Time [...] with other provider:Did you involve another provider (consultant luxury and auto. vice president jaguar brand (ex ), , pharmacy, etc.)?: No Discharge. No recommendations on prescription strength medication(s). See documentation for any additional details. MIPS: Not Applicable MEDICATIONS GIVEN IN THE EMERGENCY: Medications lactated ringers infusion (0 mLs Intravenous Stopped 06/05/24 0610) ondansetron (ZOFRAN) injection 8 mg (8 mg Intravenous $Given 06/05/24 1237) diphenhydrAMINE (BENADRYL) capsule 25 mg (25 mg Oral $Given 06/05/24 1240) NEW PRESCRIPTIONS STARTED AT TODAY'S ER VISIT Discharge Medication List as of 06/05/2024 3:28 PM HPI Patient information was obtained from: Patient Use of Manager Physical: N/A Gianna Hernández is a 29 year [...] Per chart review, patient was seen at [facility] ED for sickle cell pain crisis 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 Recently moved to [place] from [place], [place]. She is 1 of 9 [...] Social Connections: Socially Integrated (03/28/2024) Received from [facility] Social Connections Do you often feel lonely [...] 18 Ht 1.549 m (5' 1) Wt 52.2kg (115 lb) SpO2 99% BMI 21.73 kg/m?? [...] abnormality. Rate: 88 BPM Rhythm: Sinus rhythm Elton: 81 [place] Interval: 148 ms QRS Interval: 82 ms [...] my direction. Stiven Madsen M.D. Emergency Medicine [facility] EM[facility] [address] [facility] [id number] Dept: [phone] Stiven Madsen MD 06/05/24 1433 Stiven Madsen MD 06/05/24 1938 FOLLOWER FOLLOWER * Jose Ramon Sims, SOFIA - 06/05/2024 [...] WDL WDL Cognitive/Neuro/Behavioral WDL Cognitive/Neuro/Behavioral WDL WDL FOLLOWER documented in this encounter Plan of Treatment Not on file documented as of this encounter Goals Goal Patient Goal Type Associated Problems Recent Progress Patient-Stated? Author Pain Management General On track( 025 12:40 PM TRIP FOLLOWER) Yes Juhi Benson, RN Note: Goal Statement: [...] MUSE JEREMIAS HORVATH,WWRocio STAT 06/05/2024 11:40 AM TRIP FOLLOWER documented in this encounter Results * ECG 12-LEAD WITH MUSE (LHE) (06/05/2024 11:40 AM TRIP FOLLOWER) Systolic Blood Pressure mmHg RADIOLOGY RESULTS Diastolic Blood Pressure mmHg RADIOLOGY RESULTS Ventricular Rate 88 BPM RAD IOLOGY RESULTS Atrial Rate 88 BPM RADIOLOG Y RESULTS [place] Interval 148 ms RADIOLOG Y RESULTS QRS Duration 82 ms RADIOLO GY RESULTS QT 388 ms RADIOLOGY RESULTS QTc 469 ms RADIOLOGY RESULTS P Elton 43 degrees RADIOLOGY RESULTS R AXIS 81 degrees RADIOLOGY RESULTS T Elton 57 degrees RADIOLOGY RESULTS Interpretation ECG Sinus rhythm Nonspecific T wave abnormality Prolonged QT Abnormal ECG When compared with ECG of 03-Jun-2024 15:24, No significant change was found Confirmed by SEE ED PROVIDER NOTE FOR, ECG INTERPRETATION (4000), senior technical editor Ariadna Shabazz ([id number]) on 06/05/2024 12:02:47 PM RADIOLOGY RESULTS 06/05/2024 11:4 0 AM TRIP FOLLOWER 06/05/2024 12:02 PM TRIP FOLLOWER us Stiven Madsen MD ECG ORDERABLES Edited [...] For 1 dose $Given 06/05/2024 12:40 PM TRIP FOLLOWER 25 mg heparin lock flush 10 unit/mL [...] for each lumen $Given 06/05/2024 3:20 PM TRIP FOLLOWER 5 mLs HYDROmorphone (DILAUDID) injection 2 mg 2 mg, Intravenous, EVERY 1 HOUR PRN, moderate pain, severe pain, Starting on Wed06/05/24 at 1153 $Given 06/05/2024 2:56 PM TRIP FOLLOWER 2 mg $Given 06/05/2024 1:54 PM TRIP FOLLOWER 2 mg $Given 06/05/2024 12:40 PM TRIP FOLLOWER 2 mg lactated ringers infusion at 500 mL/hr, Intravenous, CONTINUOUS, Starting on Wed06/05/24 at 1200, Until Wed06/05/24 at 1359 $New Bag 06/05/2024 12:39 PM TRIP FOLLOWER 500 mL/hr ondansetron (ZOFRAN) injection 8 mg 8 mg, Intravenous, ONCE, Administer over 2-5 Minutes, On Wed06/05/24 at 1200, For 1 dose $Given 06/05/2024 12:39 PM TRIP FOLLOWER 8 mg documented in this encounter Active and Recently Administered Medications Times are shown in TRIP FOLLOWER. Scheduled Medication Order 06/03/2024 06/04/2024 06/05/2024 ondansetron [...] RN) documented in this encounter Care Teams Title Specialist Relationship Specialty Start Date End Date No Ref-Primary, Physician PCP - General 03/15/24 06/17/24 Mor Ramsey Medical Student 04/03/24 Case Samuel MD [address] [place] [address] 484, [address] [place] [address] Assigned Pediatric Specialist Provider 05/18/24 Juhi Benson, SOFIA Specialty Sausage Cooker Hematology & Oncology 05/29/24 documented as of this encounter
--- OUTSIDE RECORDS SUMMARY | 2024-06-24 20:09 | XMS_ITS | Encounter Summary ---
Author Organization [facility] Address [address] [place] [address]. [place] [address] Care Team Providers Care Press Operator Helper Name Role Phone No Ref-Primary, Physician Primary Care Provider Mor Ramsey Unavailable Unavailable Case Samuel MD Unavailable [phone] Encounter Details Date Type Department Care Team [...] on file Legal Sex Female 8:25 AM SURGERY SPECIALIST Gender Identity Not on file Sexual Orientation Not on file documented as of this encounter Plan of Treatment Not on file documented as of this encounter Goals Goal Patient Goal Type Associated Problems Recent Progress Patient-Stated? Author Pain Management General On track( 025 12:40 PM SURGERY SPECIALIST) Yes Juhi Benson, RN Note: Goal Statement: [...] on filedocumented in this encounter Care Teams Press Operator Helper Relationship Specialty Start Date End Date No Ref-Primary, Physician PCP - General 03/15/24 06/17/24 Mor Ramsey Medical Student 04/03/24 Case Samuel MD [address] [place] [address] 484, [address] [place] [address] Assigned Pediatric Specialist Provider 05/18/24 documented as of this encounter
--- OUTSIDE RECORDS SUMMARY | 2024-06-24 20:09 | XMS_ITS | Encounter Summary ---
Author Organization [facility] Address [address] [place] [address] Care Team Providers Care City Supervisor Name Role Phone No Ref-Primary, Physician Primary Care Provider Mor Ramsey Unavailable Unavailable Case Samuel MD Unavailable [phone] Juhi Benson RN Unavailable Unavailable Reason for Visit * Reason Comments Sickle Cell Pain Crisis Encounter Details Date Type Department Care Team (Late st Contact Info) Description 05/31/2024 9:56 PM COKE DRAWER - 06/01/2024 12:46 AM [facility] Emergency [facility] Emergency Room [facility] [place] [address] Carley Riggins MD [address] [address] Sickle cell pain crisis (H) Discharge Disposition: [...] on file Legal Sex Female 8:25 AM COKE DRAWER Gender Identity Not on file Sexual Orientation Not on file documented as of this encounter Last Filed Vital Signs Vital Sign Reading Time Taken Comments Blood Pressure 118/63 06/01/2024 12:41 AM COKE DRAWER Pulse 71 06/01/2024 12:41 AM COKE DRAWER Temperature 36.7 C (98 F) 05/31/2024 9:39 PM COKE DRAWER Respiratory Rate 20 05/31/2024 9:39 PM COKE DRAWER Oxygen Saturation 98% 06/01/2024 12:41 AM COKE DRAWER Inhaled Oxygen Concentration - - Weight 54.4 kg (120 lb) 05/31/2024 9:39 PM COKE DRAWER Height 154.9 cm (5' 1) 05/31/2024 9:39 PM COKE DRAWER Body Mass Index 22.67 05/31/2024 9:39 PM COKE DRAWER documented in this encounter Discharge Instructions * Attachments The following attachments cannot be sent through Care Everywhere. * Sickle Cell Crisis ([place]) documented in this encounter Medications at Time [...] her left chest. She recently moved to [place] from [place], and notes the difference in temperature may be exacerbating her symptoms. Patient denies any other complaints at this time. 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 Visit to [facility] ER on 29-May-2024 for sickle cell pain 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, [facility] Functional asplenia Gallstones Hb-SS disease [...] Currently Drug use: Never Social History Narrative Evhw-ky-bysr mom. Recently moved to [place] from [place], [place]. She is 1 of 9 [...] Social Connections: Socially Integrated (03/28/2024) [facility] Do you often [...] Automated Count Confirmed. Platelet morphology is normal. [place] Cells Slight (*) Elliptocytes Slight (*) Ziegler-Ozan Bodies Present (*) Polychromasia Slight (*) Sickle [...] my direction. Carley Riggins M.D. Emergency Medicine [facility] EMERGENCY ROOM [address] [facility] [id number] Dept: [phone] Carley Riggins MD 06/01/24 0048 DRAWER * Aminata Farley RN - 05/31/2024 9:40 PM CST Pt is coming in with a sickle cell crisis. Pt was unable to pick up man her medication d/t pharmacy needing to order it. Tylenol last at 1700 Ibuprofen last at 2100 Triage Assessment (Adult) Row Name 05/31/242139 Triage Assessment Airway WDL WDL Respiratory WDL Respiratory WDL WDL Skin Circulation/Temperature WDL Skin Circulation/Temperature WDL WDL Cardiac WDL Cardiac WDL WDL Peripheral/Neurovascular WDL Peripheral Neurovascular WDL WDL Cognitive/Neuro/Behavioral WDL Cognitive/Neuro/Behavioral WDL WDL DRAWER documented in this encounter Plan of Treatment Not on file documented as of this encounter Goals Goal Patient Goal Type Associated Problems Recent Progress Patient-Stated? Author Pain Management General On track( 025 12:40 PM COKE DRAWER) Yes Juhi Benson, RN Note: Goal Statement: [...] AND PLATELET MORPHOLOGY STAT 05/31/2024 10:21 PM COKE DRAWER CBC WITH PLATELETS AND DIFFERENTIAL STAT 05/31/2024 10:21 PM COKE DRAWER CBC WITH PLATELETS & DIFFERENTIAL STAT 05/31/2024 10:21 PM COKE DRAWER RETICULOCYTE COUNT STAT 05/31/2024 10 :21 PM COKE DRAWER BASIC METABOLIC PANEL STAT 05/31/2024 10:21 PM COKE DRAWER documented in this encounter Results * (ABNORMAL) RBC and Platelet Morphology (05/31/2024 10:21 PM COKE DRAWER) [facility] RBC Morphology Confirmed RBC Indices 05/31/2024 10:59 PM COKE DRAWER [facility] Platelet Assessment Automated Count Confirmed. Platelet morphology is normal. Automated Count Confirmed. Platelet morphology is normal. JARET 05/31/2024 10:59 PM COKE DRAWER [facility] Mary Cells Slight(A) None Seen JARET 05/31/2024 10:59 PM COKE DRAWER [facility] Elliptocytes Slight(A) None Seen JARET 05/31/2024 10:59 PM COKE DRAWER [facility] Ziegler-Ozan Bodies Present(A) None Seen JARET 05/31/2024 10:59 PM COKE DRAWER [facility] Polychromasia Slight(A) None Seen JARET 05/31/2024 10:59 PM COKE DRAWER [facility] Sickle Cells Moderate(A) None Seen JARET 05/31/2024 10:59 PM COKE DRAWER [facility] Target Cells Slight(A) None Seen JARET 05/31/2024 10:59 PM COKE DRAWER [facility] Blood BLOOD SPECIMEN / Unknown Venipuncture / Unknown 05/31/2024 10:21 PM COKE DRAWER 05/31/2024 10:24 PM COKE DRAWER us Carley Riggins MD LAB - BLOOD ORDERABLES [facility] [address] Result [facility] [address] [place] [address], [facility] * (ABNORMAL) CBC with platelets and differential (05/31/2024 10:21 PM COKE DRAWER) [facility] WBC Count 15.4(H) 4.0 - 11.0 10e3/uL 05/31/2024 10:55 PM [facility] RBC Count 2.73(L) 3.80 - 5.20 10e6/uL 05/31/2024 10:55 PM [facility] Hemoglobin 8.9(L) 11.7 - 15.7 g/dL 05/31/2024 10:55 PM [facility] Hematocrit 24.8(L) 35.0 - 47.0 % 05/31/2024 10:55 PM [facility] MCV 91 78 - 100 fL 05/31/2024 10:55 PM [facility] MCH 32.6 26.5 - 33.0 pg 05/31/2024 10:55 PM [facility] MCHC 35.9 31.5 - 36.5 g/dL 05/31/2024 10:55 PM [facility] RDW 21.2(H) 10.0 - 15.0 % 05/31/2024 10:55 PM [facility] Platelet Count 399 150 - 450 10e3/uL 05/31/2024 10:55 PM [facility] % Neutrophils 56 % 05/31/2024 10:55 PM [facility] % Lymphocytes 27 % 05/31/2024 10:55 PM [facility] % Monocytes 14 % 05/31/2024 10:55 PM [facility] % Eosinophils 1 % 05/31/2024 10:55 PM [facility] % Basophils 1 % 05/31/2024 10:55 PM [facility] % Immature Granulocytes 1 % 05/31/2024 10:55 PM [facility] NRBCs per 100 WBC 2(H) <1 /100 025 10:55 PM [facility] Absolute Neutrophils 8.7(H) 1.6 - 8.3 10e3/uL 05/31/2024 10:55 PM [facility] Absolute Lymphocytes 4.2 0.8 - 5.3 10e3/uL 05/31/2024 10:55 PM [facility] Absolute Monocytes 2.2(H) 0.0 - 1.3 10e3/uL 05/31/2024 10:55 PM [facility] Absolute Eosinophils 0.2 0.0 - 0.7 10e3/uL 05/31/2024 10:55 PM [facility] Absolute Basophils 0.1 0.0 - 0.2 10e3/uL 05/31/2024 10:55 PM [facility] Absolute Immature Granulocytes 0.1 <=0.4 10e3/uL 05/31/2024 10:55 PM [facility] Absolute NRBCs 0.3 10e3/uL 05/31/2024 10:55 PM [facility] Blood BLOOD SPECIMEN / Unknown Venipuncture / Unknown 05/31/2024 10:21 PM COKE DRAWER 05/31/2024 10:24 PM [facility] us Carley Riggins MD LAB - BLOOD ORDERABLES [address] Result [facility] [address] [place] [address], [facility] * (ABNORMAL) Basic metabolic panel (05/31/2024 10:21 PM [facility]) Sodium 133(L) 135 - 145 mmol/L 05/31/2024 10:46 PM [facility] Potassium 4.1 3.4 - 5.3 mmol/L 05/31/2024 10:46 PM [facility] Chloride 102 98 - 107 mmol/L 05/31/2024 10:46 PM [facility] Carbon Dioxide (CO2) 20(L) 22 - 29 mmol/L 05/31/2024 10:46 PM [facility] Anion Gap 11 7 - 15 mmol/L 05/31/2024 10:46 PM [facility] Urea Nitrogen 9.9 6.0 - 20.0 mg/dL 05/31/2024 10:46 PM [facility] Creatinine 0.70 0.51 - 0.95 mg/dL 05/31/2024 10:46 PM [facility] GFR Estimate >90 >60 mL/min/1.7 3m2 05/31/2024 10:46 PM [facility] Comment:eGFR calculated usin g 2020 CKD-EPI equation. Calcium 9.0 8.8 - 10.4 mg/dL 05/31/2024 10:46 PM [facility] Glucose 97 70 - 99 mg/dL 05/31/2024 10:46 PM COKE DRAWER [facility] Blood BLOOD SPECIMEN / Unknown Venipuncture / Unknown 05/31/2024 10:21 PM COKE DRAWER 05/31/2024 10:24 PM COKE DRAWER Carley Riggins MD LAB - BLOOD ORDERABLES Liss l Result Performing Organization Address [facility]/ZIP Co de Phone Number [facility] [address] [place] [address] PROSPER Munoz [id number], [facility] * (ABNORMAL) Reticulocyte count (05/31/2024 10:21 PM COKE DRAWER) [facility] % Reticulocyte 22.7(H) 0.5 - 2.0 % 05/31/2024 10:45 PM COKE DRAWER [facility] Absolute Reticulocyte 0.631(H) 0.025 - 0.095 10e6/uL 05/31/2024 10:45 PM COKE DRAWER [facility] Blood BLOOD SPECIMEN / Unknown Venipuncture / Unknown 05/31/2024 10:21 PM COKE DRAWER 05/31/2024 10:24 PM COKE DRAWER Carley Riggins MD LAB - BLOOD ORDERABLES Liss l Result Performing Organization Address [facility] de Phone Number [facility] [address] [place] [address] PR[place] [id number], [facility] documented in this encounter Visit Diagnoses Diagnosis 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 documented in this encounter Administered Medications Inactive Administered Medications - up to 3 most recent administrations Medication Order MAR Action Action Date Dose Rate Site diphenhydrAMINE (BENADRYL) capsule 25 mg 25 mg, Oral, ONCE, On Wed05/31/24 at 2300, For 1 dose $Given 05/31/2024 10:50 PM COKE DRAWER 25 mg heparin lock flush 100 unit/mL injection 100 Units 100 Units, Intracatheter, ONCE, On Wed06/01/24 at 0030, For 1 dose $Given 06/01/2024 12:39 AM COKE DRAWER 100 Units HYDROmorphone (DILAUDID) injection 2 mg 2 mg, Intravenous, EVERY 1 HOUR PRN, severe pain, Starting on Wed05/31/24 at 2143, For 3 doses $Given 06/01/2024 12:36 AM COKE DRAWER 2 mg $Given 05/31/2024 11:42 PM COKE DRAWER 2 mg $Given 05/31/2024 10:28 PM COKE DRAWER 2 mg lactated ringers infusion at 500 mL/hr, Intravenous, CONTINUOUS, Starting on Wed05/31/24 at 2200, Until Wed05/31/24 at 2359 $New Bag 05/31/2024 10:22 PM COKE DRAWER 500 mL/hr ondansetron (ZOFRAN) injection 8 mg 8 mg, Intravenous, ONCE, Administer over 2-5 Minutes, On Wed05/31/24 at 2200, For 1 dose $Given 05/31/2024 10:27 PM COKE DRAWER 8 mg documented in this encounter Active and Recently Administered Medications Times are shown in COKE DRAWER. Scheduled Medication Order 05/30/2024 05/31/2024 06/01/2024 diphenhydrAMINE (BENADRYL) capsule 25 mg (COMPLETED) 25 mg, Oral, ONCE, On Wed05/31/24 at 2300, For 1 dose 2250 ($Given - Provider: Sabrina Tinoco, SOFIA) heparin lock flush 100 unit/mL injection 100 Units (COMPLETED) 100 Units, Intracatheter, ONCE, On Citlali 06/01/24 at 0030, For 1 dose 0039 ($Given - Provi nas: Sabrina Tinooc, RN) ondansetron (ZOFRAN) injection 8 mg (COMPLETED) [...] 3 doses 2228 ($Given - Provider: Carlos Charels RN)2342 ($Given - Provider: Sabrina Tinoco, SOFIA) 0036 ($Given - Provider: Sabrina Tinoco, SOFIA) documented in this encounter Care Teams City Supervisor Relationship Specialty Start Date End Date No Ref-Primary, Physician PCP - General 03/15/24 06/17/24 Roxy Mor Medical Student 04/03/24 Case Samuel MD [address] [place] [address], [address] [place] [address] Assigned Pediatric Specialist Provider 05/18/24 Juhi Benson, SOFIA Specialty Tubing Tester Hematology & Oncology 05/29/24 documented as of this encounter
--- OUTSIDE RECORDS SUMMARY | 2024-06-24 20:09 | XMS_ITS | Encounter Summary ---
Author Organization [facility] Address [address] [place] [address]. [place] [address] Care Team Providers Care Combination Man Name Role Phone No Ref-Primary, Physician Primary Care Provider Mor Ramsey Unavailable Unavailable Case Samuel MD Unavailable [phone] Juhi Benson RN Unavailable Unavailable Encounter Details [...] on file Legal Sex Female 8:25 AM RACK CARRIER Gender Identity Not on file Sexual Orientation Not on file documented as of this encounter Plan of Treatment Not on file documented as of this encounter Goals Goal Patient Goal Type Associated Problems Recent Progress Patient-Stated? Author Pain Management General On track( 025 12:40 PM RACK CARRIER) Yes Juhi Benson RN Note: Goal Statement: [...] on filedocumented in this encounter Care Teams Combination Man Relationship Specialty Start Date End Date No Ref-Primary, Physician PCP - General 03/15/24 06/17/24 Mor Ramsey Medical Student 04/03/24 Case Samuel MD [address] [place] [address], [address] [place] [address] Assigned Pediatric Specialist Provider 05/18/24 Juhi Benson RN Specialty Photo Colorer Hematology & Oncology 05/29/24 documented as of this encounter
--- OUTSIDE RECORDS SUMMARY | 2024-06-24 20:09 | XMS_ITS | Encounter Summary ---
Author Organization [facility] Address [address] [place] [address]. [place] [address] Care Team Providers Care Cobbler Sole Name Role Phone No Ref-Primary, Physician Primary Care Provider Mor Ramsey Unavailable Unavailable Case Samuel MD Unavailable [phone] Juhi Benson RN Unavailable Unavailable Encounter Details [...] on file Legal Sex Female 8:25 AM RUNNER OUT Gender Identity Not on file Sexual Orientation Not on file documented as of this encounter Plan of Treatment Not on file documented as of this encounter Goals Goal Patient Goal Type Associated Problems Recent Progress Patient-Stated? Author Pain Management General On track( 025 12:40 PM RUNNER OUT) Yes Juhi Benson RN Note: Goal Statement: [...] on filedocumented in this encounter Care Teams Cobbler Sole Relationship Specialty Start Date End Date No Ref-Primary, Physician PCP - General 03/15/24 06/17/24 Mor Ramsey Medical Student 04/03/24 Case Samuel MD [address] [place] [address], [address] [place] [address] Assigned Pediatric Specialist Provider 05/18/24 Juhi Benson RN Specialty Manifest Clerk Hematology & Oncology 05/29/24 documented as of this encounter
[2024-06-24 20:10] VITALS: BP 118/76; PULSE 112; RESP 22; TEMP 37.3; O2SAT 97; BMI 21.3
--- OUTSIDE RECORDS SUMMARY | 2024-06-24 20:10 | XMS_ITS | Encounter Summary ---
Author Organization [facility] Address [address] [place] [address]. [place] [address] Care Team Providers Care Director Geophysical Laboratory Name Role Phone No Ref-Primary, Physician Primary Care Provider Mor Ramsey Unavailable Unavailable Case Samuel MD Unavailable [phone] Juhi Benson RN Unavailable Unavailable Encounter Details [...] file Legal Sex Female 8:25 AM DESIGN TRANSFERRER Gender Identity Not on file Sexual Orientation Not on file documented as of this encounter Plan of Treatment Not on file documented as of this encounter Goals Goal Patient Goal Type Associated Problems Recent Progress Patient-Stated? Author Pain Management General On track( 025 12:40 PM DESIGN TRANSFERRER) Yes Juhi Benson RN Note: Goal Statement: [...] filedocumented in this encounter Care Teams Director Geophysical Laboratory Relationship Specialty Start Date End Date No Ref-Primary, Physician PCP - General 03/15/24 06/17/24 Mor Ramsey Medical Student 04/03/24 Case Samuel MD [address] [place] [address], [address] [place] [address] Assigned Pediatric Specialist Provider 05/18/24 Juhi Benson RN Specialty Frame Table Operator Helper Hematology & Oncology 05/29/24 documented as of this encounter
--- OUTSIDE RECORDS SUMMARY | 2024-06-24 20:10 | XMS_ITS | Encounter Summary ---
Author Organization [facility] Address [address] [place] [address] Care Team Providers Care Soil Sampler Name Role Phone No Ref-Primary, Physician Primary Care Provider Mor Ramsey Unavailable Unavailable Case Samuel MD Unavailable [phone] Juhi Benson RN Unavailable Unavailable Reason for Visit * Reason Comments Sickle Cell Pain Crisis Encounter Details Date Type Department Care Team (Late st Contact Info) Description 06/06/2024 9:41 AM MODULAR HOME CREW MEMBER - 06/06/2024 1:29 PM [facility] Emergency [facility] Emergency Room [facility] [place] [address] Marilia Summers MD [address] [place] [address] Sickle cell pain crisis (H) Discharge Disposition: [...] on file Legal Sex Female 8:25 AM MODULAR HOME CREW MEMBER Gender Identity Not on file Sexual Orientation Not on file documented as of this encounter Last Filed Vital Signs Vital Sign Reading Time Taken Comments Blood Pressure 122/82 06/06/2024 1:00 PM MODULAR HOME CREW MEMBER Pulse 77 06/06/2024 1:00 PM MODULAR HOME CREW MEMBER Temperature 36.9 C (98.5 F) 06/06/2024 9:33 AM MODULAR HOME CREW MEMBER Respiratory Rate 17 06/06/2024 9:33 AM MODULAR HOME CREW MEMBER Oxygen Saturation 98% 06/06/2024 1:00 PM MODULAR HOME CREW MEMBER Inhaled Oxygen Concentration - - Weight 52.2 kg (115 lb) 06/06/2024 9:33 AM MODULAR HOME CREW MEMBER Height 154.9 cm (5' 1) 06/06/2024 9:33 AM MODULAR HOME CREW MEMBER Body Mass Index 21.73 06/06/2024 9:33 AM MODULAR HOME CREW MEMBER documented in this encounter Discharge Instructions * Discharge Instructions* Marilia Summers MD - 06/06/2024 12:48 PM MODULAR HOME CREW MEMBER With the amount of hydromorphone that you [...] work on your care plan with your lidar scientist to see if they would be agreeable to getting you an appointment with pain clinic even while you are waiting to start the plasmapheresis to work a bit more on a home pain regimen for you. Continue to follow your care plan discussed with your lidar scientist to treat your sickle cell pain crisis. Your next dose of dilaudid should not be before 2:30 pm. LAR HOME CREW MEMBER LAR HOME CREW MEMBER * Attachments The following attachments cannot be sent through Care Everywhere. * Naloxone Nasal Kot[place] (NALOXONE SPRAY - NASAL) (Faroese) * Drug Overdose: Opioid (Faroese) documented in this encounter Medications at Time [...] 05/01/2024 naloxone (NARCAN) 4 MG/0.1ML nasal spray Kotlik 1 spray (4 mg) into one nostril [...] WDL WDL Cognitive/Neuro/Behavioral WDL Cognitive/Neuro/Behavioral WDL WDL LAR HOME CREW MEMBER * Marilia Summers MD - 06/06/2024 9:34 [...] our physician who is working with her lidar scientist for the care plan. Per the patient [...] plans and they will talk with her lidar scientist about the request for the patient to [...] do now have a major issue. Our executive legal secretary Hattie and our application security consultant Augusto just saw the patient to get into the tow motor driver seat and drive away after being told specifically that she cannot drive and that she had told us that her significant other was driving in to pick herup. 1328 Our security did have her on video (as broodmare barn groom concerned she did not get into a [...] Prescriptions NALOXONE (NARCAN) 4 MG/0.1ML NASAL SPRAY Kotlik 1 spray (4 mg) into one nostril [...] has been evaluated multiple times since in [place] and although she has a remote history [...] than previous suspect she was slightly dehydrated. [facility] Documentation Medical Decision Making Obtained [...] other provider:Did you involve another provider (senior health consultant, , pharmacy, etc.)?: No Discharge.continue current meds The creation of this record is based on the scribe???s observations of the work being performed by Alex Ashby and the provider???s statements to them. This document has been checked and approved byMD Marilia Martinez MD Emergency Medicine [facility] EMERGENCY ROOM Marilia Summers MD 06/06/24 1254 Marilia Summers MD 06/06/24 1257 Marilia Summers MD 06/06/24 1330 LAR HOME CREW MEMBER LAR HOME CREW MEMBER LAR HOME CREW MEMBER documented in this encounter Plan of Treatment Not on file documented as of this encounter Goals Goal Patient Goal Type Associated Problems Recent Progress Patient-Stated? Author Pain Management General On track( 025 12:40 PM MODULAR HOME CREW MEMBER) Yes Juhi Benson, SOFIA Note: Goal Statement: [...] For 1 dose $Given 06/06/2024 10:22 AM MODULAR HOME CREW MEMBER 50 mg heparin lock flush 10 unit/mL [...] each port lumen $Given 06/06/2024 1:13 PM MODULAR HOME CREW MEMBER 5 mLs HYDROmorphone (DILAUDID) injection 2 mg 2 mg, Intravenous, EVERY 1 HOUR PRN, moderate pain, Starting on Wed06/06/24 at 0958, For 2 doses $Given 06/06/2024 11:31 AM MODULAR HOME CREW MEMBER 2 mg $Given 06/06/2024 10:22 AM MODULAR HOME CREW MEMBER 1 mg HYDROmorphone (DILAUDID) injection 2 mg 2 mg, Intravenous, ONCE, On Wed06/06/24 at 1300, For 1 dose $Given 06/06/2024 12:57 PM MODULAR HOME CREW MEMBER 2 mg lactated ringers BOLUS 1,000 mL Intravenous, 1,000 mL, ONCE, On Wed06/06/24 at 1000, For 1 dose $New Bag 06/06/2024 10:12 AM MODULAR HOME CREW MEMBER 1,000 mLs sodium chloride (PF) 0.9% PF [...] Recently Administered Medications Times are shown in MODULAR HOME CREW MEMBER. Scheduled Medication Order 06/04/2024 06/05/2024 06/06/2024 heparin [...] lumen documented in this encounter Care Teams Soil Sampler Relationship Specialty Start Date End Date No Ref-Primary, Physician PCP - General 03/15/24 06/17/24 Mor Ramsey Medical Student 04/03/24 Case Samuel MD [address] [place] [address] 484, [address] [place] [address] Assigned Pediatric Specialist Provider 05/18/24 Marcelino, Juhi, RN Specialty Tool Grinder Operator Hematology & Oncology 05/29/24 documented as of this encounter
--- OUTSIDE RECORDS SUMMARY | 2024-06-24 20:10 | XMS_ITS | Encounter Summary ---
Author Organization [facility] Address [address] [place] [address]. [place] [address] Care Team Providers Care Spring Fitter Helper Name Role Phone No Ref-Primary, Physician Primary Care Provider Mor Ramsey Unavailable Unavailable Case Samuel MD Unavailable [phone] Juhi Benson RN Unavailable Unavailable Reason for Visit * Reason Comments Sickle Cell Pain Crisis Encounter Details Date Type Department Care Team (Late st Contact Info) Description 06/07/2024 10:00 AM SLIP OPERATOR - 06/07/2024 10:45 AM [facility] Emergency [facility] Emergency Room [facility] [place] [address] Bernabe Farley MD [facility] [address] [place] [address] Chest pain, unspecified type; Fever, unspecified fever [...] on file Legal Sex Female 8:25 AM SLIP OPERATOR Gender Identity Not on file Sexual Orientation Not on file documented as of this encounter Last Filed Vital Signs Vital Sign Reading Time Taken Comments Blood Pressure 108/63 06/07/2024 9:59 AM SLIP OPERATOR Pulse 84 06/07/2024 9:59 AM SLIP OPERATOR Temperature 36.6 C (97.9 F) 06/07/2024 9:59 AM SLIP OPERATOR Respiratory Rate 19 06/07/2024 9:59 AM SLIP OPERATOR Oxygen Saturation 100% 06/07/2024 9:59 AM SLIP OPERATOR Inhaled Oxygen Concentration - - Weight 52.2 kg (115 lb) 06/07/2024 9:59 AM SLIP OPERATOR Height - - Body Mass Index 21.73 06/06/2024 9:33 AM SLIP OPERATOR documented in this encounter Medications at [...] 05/01/2024 naloxone (NARCAN) 4 MG/0.1ML nasal spray [place] 1 spray (4 mg) into one nostril [...] did not want to wait for a refrigerated national truck driver so she would like to leave at this time. MD and charge informed. OPERATOR * Bernabe Farley MD - 06/07/2024 10:04 [...] she unfortunately left by car as the refrigerated national truck driver after stating to staff that she [...] left. Additional ED Course timestamps entered by quality engineer medical device: 10:12 AM I met with the patient [...] at this time. Per Chart Review: 06/06/24, [facility] ED: Patient presented for sickle cell related [...] our physician who is working with her roll up operator for the care plan. Per the patient [...] she shows signs of opiate overdose. Our junior legal secretary Hattie and our information security director Jagdeep both just saw the patient to get into the refrigerated national truck driver seat and drive away after [...] my direction. Bernabe Farley M.D. Emergency Medicine [facility] EMERGENCY ROOM [address] [facility] [address] Dept: [phone] Bernabe Farley MD 06/07/24 1045 OPERATOR * Yanely Avendano RN - 06/07/2024 10:04 AM CST Pt here in sickle cell crisis for the 3rd day. Yesterday she received a lot of IV dilaudid and then drove home after told not to. Upon arrival here she repeatedly told this magnetic tape typewriter operator she was dropped off but after reviewing the security camera she is clearly driving in and getting out of the refrigerated national truck driver seat. Provider notified. Reports chest pain today. Last dose of oral was 2 hours ago. Triage Assessment (Adult) Row Name 06/07/24 0959 Triage Assessment Airway WDL WDL Respiratory WDL Respiratory WDL WDL Skin Circulation/Temperature WDL Skin Circulation/Temperature WDL WDL Cardiac WDL Cardiac WDL WDL Peripheral/Neurovascular WDL Peripheral Neurovascular WDL WDL Cognitive/Neuro/Behavioral WDL Cognitive/Neuro/Behavioral WDL WDL OPERATOR documented in this encounter Plan of Treatment Not on file documented as of this encounter Goals Goal Patient Goal Type Associated Problems Recent Progress Patient-Stated? Author Pain Management General On track( 025 12:40 PM SLIP OPERATOR) Yes Juhi Benson, RN Note: Goal [...] Recently Administered Medications Times are shown in SLIP OPERATOR. Scheduled Medication Order 06/05/2024 06/06/2024 06/07/2024 heparin [...] Out COVID-19 06/07/2024 06/07/2024 06/07/2024 12:50 PM SLIP OPERATOR documented as of this encounter Care Teams Spring Fitter Helper Relationship Specialty Start Date End Date No Ref-Primary, Physician PCP - General 03/15/24 06/17/24 Mor Ramsey Medical Student 04/03/24 Case Samuel MD [address] [place] [address] [address], [address] [place] [address] Assigned Pediatric Specialist Provider 05/18/24 Juhi Benson, RN Specialty Shank Paperer Hematology & Oncology 05/29/24 documented as of this encounter
--- OUTSIDE RECORDS SUMMARY | 2024-06-24 20:11 | XMS_ITS | Encounter Summary ---
Author Organization [facility] Address [address] [place] [address] Care Team Providers Care Lodge Officer Name Role Phone No Ref-Primary, Physician Primary Care Provider Mor Ramsey Unavailable Unavailable Case Samuel MD Unavailable [phone] Juhi Benson RN Unavailable Unavailable Reason for Visit * Reason Onset Date Comments Refill Request 06/15/2024 Encounter Details Date Type Department Care Team (Late st Contact Info) Description 06/15/[address] [place] [address] Case Samuel MD [address] [place] [address] [address], [address] [place], [place] [id number] Refill Request Social History Tobacco Use Types [...] file Legal Sex Female 8:25 AM COIL WINDER STRAP Gender Identity Not on file Sexual Orientation [...] by whom: Dr. Case Samuel on 06/07/24 FINISH OPENER Reviewed: no access Send to provider: Dr. Samuel and SOFIA ReynagaCC. WINDER STRAP documented in this encounter Plan of Treatment Not on file documented as of this encounter Goals Goal Patient Goal Type Associated Problems Recent Progress Patient-Stated? Author Pain Management General On track( 025 12:40 PM COIL WINDER STRAP) Yes Juhi Benson, RN Note: Goal Statement: [...] crisis documented in this encounter Care Teams Lodge Officer Relationship Specialty Start Date End Date No Ref-Primary, Physician PCP - General 03/15/24 06/17/24 Mor Ramsey Medical Student 04/03/24 Case Samuel MD [address] [place] [address] [address], [address] [place] [address] Assigned Pediatric Specialist Provider 05/18/24 Juhi Benson, RN Specialty Information Writer Hematology & Oncology 05/29/24 documented as of this encounter
--- OUTSIDE RECORDS SUMMARY | 2024-06-24 20:11 | XMS_ITS | Encounter Summary ---
Author Organization [place] Address [address] [place] [id number] Care Team Providers Care Stone Circular Sawyer Name Role Phone Roxy Mor Unavailable Unavailable Case Samuel MD Unavailable [phone] Juhi Benson RN Unavailable Unavailable Veronica Joseph MD Primary Care Provider [phone] Reason for Visit * Reason Comments Sickle Cell Pain Crisis Encounter Details Date Type Department Care Team (Late st Contact Info) Description 06/22/2024 5:23 PM DIRECTOR WHOLESALE - 06/22/2024 10:02 PM DIRECTOR WHOLESALE Emergency [facility] Emergency Department [address] [place] [id number] Lynne Varner MD [address] [place] [address] [id number] Sickle cell anemia with crisis (H) Discharge Disposition: Home or [...] in an overnight usp, or couch-surfing.) Yes 06/20/2024 Are you worried [...] file Legal Sex Female 8:25 AM DIRECTOR WHOLESALE Gender Identity Not on file Sexual Orientation Not on file documented as of this encounter Last Filed Vital Signs Vital Sign Reading Time Taken Comments Blood Pressure 104/73 06/22/2024 5:03 PM DIRECTOR WHOLESALE Pulse 100 06/22/2024 5:03 PM DIRECTOR WHOLESALE Temperature 36.8 C (98.2 F) 06/22/2024 5:03 PM DIRECTOR WHOLESALE Respiratory Rate 16 06/22/2024 5:03 PM DIRECTOR WHOLESALE Oxygen Saturation 99% 06/22/2024 5:03 PM DIRECTOR WHOLESALE Inhaled Oxygen Concentration - - Weight 52.2 kg (115 lb) 06/22/2024 5:03 PM DIRECTOR WHOLESALE Height 154.9 cm (5' 1) 06/22/2024 5:03 PM DIRECTOR WHOLESALE Body Mass Index 21.73 06/22/2024 5:03 PM DIRECTOR WHOLESALE documented in this encounter Discharge Instructions * Discharge Instructions* Lynne Varner MD - 06/22/2024 5:43 PM DIRECTOR WHOLESALE TODAY'S VISIT: You were seen today for sickle cell pain flare - - If you had any labs or imaging/radiology tests performed today, you should also discuss these tests with your usual provider. FOLLOW-UP: Please make an appointment to follow up with: - Your Primary Care Provider. If you do not have a PCP, please call the Primary Care Center (phone: for an appointment - your hematology team - Have your provider review the results from today's visit with you again to make sure no further follow-up or additional testing is needed based on those results. RETURN TO THE EMERGENCY DEPARTMENT Return to the Emergency Department at any time for any new or worsening symptoms or any concerns. CTOR WHOLESALE * Attachments The following attachments cannot be sent through Care Everywhere. * Sickle Cell Crisis (Afghan) documented in this encounter Medications at Time [...] mg) by mouth daily. 30 tablet 05/01/2024 HYDROmorphone [...] 05/01/2024 naloxone (NARCAN) 4 MG/0.1ML nasal spray Barton 1 spray (4 mg) into one nostril alternating nostrils as needed for opioid reversal (for opiate overdose if not breathing and unconscious. have your family member watch video on how to use/read information sheet). every 2-3 minutes until assistance arrives 2 each 06/06/2024 documented as of this encounter ED Notes * Lynne Varner MD - 06/22/2024 5:33 PM CST History Chief Complaint Patient presents with Sickle Cell Pain Crisis HPI Gianna Hernández is a 29 year old female with history of Hb-SS disease, Acute chest syndrome, Pulmonary embolism, Stroke and Endocarditis who presents to the ED for back and leg pain. Similar to previous sickle cell pain crises in the past. Patient notes that she was recently admitted to the hospital for pain crisis as well as concern for pneumonia versus acute chest syndrome. Today, she deniesany chest pain, fever, shortness of breath, or cough. States she has pain only. Patient did take her home pain medications without relief. No recent falls or other trauma. Patient has ER care plan advising that labs and chest x-ray should only be performed if necessary and outlining medications for pain control in the emergency department. It is also noted that the patient does tend to have exacerbations of her pain driven by mental health issues and has been referred for follow-up with mental health as well. EXAM: XR CHEST 2 VIEWS DATE: 06/12/2024 IMPRESSION: A few faint peripheral reticulonodular opacities in the mid and lower lungs again seen.Lungs otherwise clear. No pleural effusion. No pneumothorax. Borderline cardiac enlargement unchanged. Port anterior right chest wall with right IJ central venous catheter tip low SVC. Port anterior left chest wall with left IJ central venous catheter tip low SVC. I have reviewed the Medications, Allergies, Past Medical and Surgical History, and Social History in the [facility] system. Past Medical History: Diagnosis Date Acute chest [...] OF AGE 105/25/2025 TONSILLECTOMY & ADENOIDECTOMY Bilateral No current facility-administered medications for this encounter. Current Outpatient Medications Medication Sig Dispense Refill HYDROmorphone (DILAUDID) 2 MG tablet Take 2 tablets (4 mg) by mouth every 6 hours as needed for severe pain. 40 tablet 0 diphenhydrAMINE (BENADRYL) 25 MG tablet Take 1-2 tablets by mouth every 6 hours as needed for itching. EPINEPHrine (ANY BX GENERIC EQUIV) 0.3 MG/0.3ML injection 2-pack Inject 0.3 mg into the muscle as needed for anaphylaxis. May repeat one time in 5-15 minutes if response to initial dose is inadequate. FLUoxetine (PROZAC) 10 MG capsule Take 1 capsule (10 mg) by mouth daily. 40 capsule 1 folic acid (FOLVITE) 1 MG tablet Take 1 tablet (1 mg) by mouth daily. 30 tablet 11 hydroxyurea (HYDREA) 500 MG capsule Take 2 capsules (1,000 mg) by mouth 2 times daily 120 capsule 11 ibuprofen (ADVIL/MOTRIN) 200 MG tablet Take 200 mg by mouth every 6 hours as needed for pain. multivitamin, therapeutic (THERA-VIT) TABS tablet Take 1 tablet by mouth daily. 30 tablet 11 naloxone (NARCAN) 4 MG/0.1ML nasal spray Barton 1 spray (4 mg) into one nostril alternating nostrilsas needed for opioid reversal (for opiate overdose if not breathing and unconscious. have your family member watch video on how to use/read information sheet). every 2-3 minutes until assistance arrives 2 each 0 Allergies Allergen Reactions Banana Anaphylaxis, Hives and [...] Hives Acetaminophen Hives Cashew Nut Oil Hives Past medical history, past surgical history, medications, and allergies were reviewed with the patient. Additional pertinent items: None Social History Socioeconomic History Marital status: Single [...] Concern Not on file Social History Narrative Nuvn-av-vyac mom. Recently moved to [place] from [place], [place]. She is 1 of 9 children. She lives with her boyfriend and 2-year-old daughter (Apr 2024). Social Drivers of Health Financial Resource Strain: Low Risk (06/20/2024) Financial Resource Strain Within the past 12 months, have you or your family members you live with been unable to get utilities (heat, electricity) when it was really needed?: No Food Insecurity: Low Risk (06/20/2024) Food Insecurity Within the past 12 months, did you worry that your food would run out before you got money to buy more?: No Within the past 12 months, did the food you bought just not last and you didn???t have money to getmore?: No Transportation Needs: Low Risk (06/20/2024) Transportation Needs Within the past 12 months, has lack of transportation kept you from medical appointments, getting your medicines, non-medical meetings or appointments, work, or from getting things that you need?: No Physical Activity: Not on file Stress: Not on file Social Connections: Socially Integrated (03/28/2024) [email or web address] Do you often feel lonely or isolated from those around you?: 0 Interpersonal Safety: Low Risk (06/20/2024) Interpersonal Safety Do you feel physically and emotionally safe where you currently live?: Yes Within the past 12 months, have you been hit, slapped, kicked or otherwise physically hurt by someone?: No Within the past 12 months, have you been humiliated or emotionally abused in other ways by your partner or ex-partner?: No Housing Stability: Low Risk (06/20/2024) Housing Stability Do you have housing? : Yes Are you worried about losing your housing?: No Social history was reviewed with the patient. Additional pertinent items: None Review of Systems A medically appropriate review of systems was performed with pertinent positives and negatives noted in the HPI, and all other systems negative. Physical Exam BP: 104/73 Pulse: 100 Temp: 98.2 ??F (36.8 ??C) Resp: 16 Height: 154.9 cm (5' 1) Weight: 52.2 kg (115 lb) SpO2: 99 % General: Well nourished, well developed, NAD HEENT: EOMI, anicteric. NCAT, MMM Neck: no jugular venous distension, supple, nl ROM Cardiac: Regular rate and rhythm. No murmurs, rubs, or gallops. Normal S1, S2. Intact peripheral pulses Pulm: CTAB, no stridor, wheezes, rales, rhonchi Back: No midline tenderness or step-off, normal range of motion, there is bilateral paraspinous muscle tenderness in the thoracic and lumbar back Skin: Warm and dry to the touch. No rash Extremities: No LE edema, no cyanosis, w/w/p Neuro: A&Ox3, no gross focal deficits, steady gait ED Course Procedures Labs Ordered and Resulted from Time of ED Arrival to Time of ED Departure COMPREHENSIVE METABOLIC PANEL - Abnormal Result Value Sodium 137 Potassium 4.5 Carbon Dioxide (CO2) 21 (*) Anion Gap 8 Urea Nitrogen 12.1 Creatinine 0.71 GFR Estimate >90 Calcium 9.5 Chloride 108 (*) Glucose 100 (*) Alkaline Phosphatase 119 AST 62 (*) ALT 54 (*) Protein Total 7.8 Albumin 4.1 Bilirubin Total 1.4 (*) RETICULOCYTE COUNT - Abnormal % Reticulocyte 5.3 (*) Absolute Reticulocyte 0.130 (*) CBC WITH PLATELETS AND DIFFERENTIAL - Abnormal WBC Count 13.7 (*) RBC Count 2.48 (*) Hemoglobin 8.2 (*) Hematocrit 23.3 (*) MCV 94 MCH 33.1 (*) MCHC 35.2 RDW 18.6 (*) Platelet Count 470 (*) % Neutrophils 78 % Lymphocytes 16 % Monocytes 4 % Eosinophils 1 % Basophils 1 % Immature Granulocytes 1 NRBCs per 100 WBC 3 (*) Absolute Neutrophils 10.6 (*) Absolute Lymphocytes 2.3 Absolute Monocytes 0.5 Absolute Eosinophils 0.1 Absolute Basophils 0.1 Absolute Immature Granulocytes 0.1 Absolute NRBCs 0.4 HCG QUALITATIVE - Normal hCG Serum Qualitative Negative Results for orders placed or performed during the hospital encounter of 06/22/24 (from the past 24 hours) CBC with platelets differential Narrative The following orders were created for panel order CBC with platelets differential. Procedure Abnormality Status --------- ------ CBC with platelets and d...[[id number]] Abnormal Final result RBC and Platelet Morphology[[id number]] Please view results for these tests on the individual orders. Comprehensive metabolic panel Result Value Ref Range Sodium 137 135 - 145 mmol/L Potassium 4.5 3.4 - 5.3 mmol/L Carbon Dioxide (CO2) 21 (L) 22 - 29 mmol/L Anion Gap 8 7 - 15 mmol/L Urea Nitrogen 12.1 6.0 - 20.0 mg/dL Creatinine 0.71 0.51 - 0.95 mg/dL GFR Estimate >90 >60 mL/min/1.73m2 Calcium 9.5 8.8 - 10.4 mg/dL Chloride 108 (H) 98 - 107 mmol/L Glucose 100 (H) 70 - 99 mg/dL Alkaline Phosphatase 119 40 - 150 U/L AST 62 (H) 0 - 45 U/L ALT 54 (H) 0 - 50 U/L Protein Total 7.8 6.4 - 8.3 g/dL Albumin 4.1 3.5 - 5.2 g/dL Bilirubin Total 1.4 (H) <=1.2 mg/dL HCG qualitative Blood Result Value Ref Range hCG Serum Qualitative Negative Negative Reticulocyte count Result Value Ref Range % Reticulocyte 5.3 (H) 0.5 - 2.0 % Absolute Reticulocyte 0.130 (H) 0.025 - 0.095 10e6/uL CBC with platelets and differential Result Value Ref Range WBC Count 13.7 (H) 4.0 - 11.0 10e3/uL RBC Count 2.48 (L) 3.80 - 5.20 10e6/uL Hemoglobin 8.2 (L) 11.7 - 15.7 g/dL Hematocrit 23.3 (L) 35.0 - 47.0 % MCV 94 78 - 100 fL MCH 33.1 (H) 26.5 - 33.0 pg MCHC 35.2 31.5 - 36.5 g/dL RDW 18.6 (H) 10.0 - 15.0 % Platelet Count 470 (H) 150 - 450 10e3/uL % Neutrophils 78 % % Lymphocytes 16 % % Monocytes 4 % % Eosinophils 1 % % Basophils 1 % % Immature Granulocytes 1 % NRBCs per 100 WBC 3 (H) <1 /100 Absolute Neutrophils 10.6 (H) 1.6 - 8.3 10e3/uL Absolute Lymphocytes 2.3 0.8 - 5.3 10e3/uL Absolute Monocytes 0.5 0.0 - 1.3 10e3/uL Absolute Eosinophils 0.1 0.0 - 0.7 10e3/uL Absolute Basophils 0.1 0.0 - 0.2 10e3/uL Absolute Immature Granulocytes 0.1 <=0.4 10e3/uL Absolute NRBCs 0.4 10e3/uL Labs, vital signs, and imaging studies were reviewed by me. Medications ondansetron (ZOFRAN) injection 4 mg (4 mg Intravenous $Given 06/22/241918) lactated ringers BOLUS 1,000 mL (0 mLs Intravenous Stopped 06/22/242123) hydromorphone (DILAUDID) injection 2 mg (2 mg Intravenous $Given 06/22/242132) diphenhydrAMINE (BENADRYL) capsule 25 mg (25 mg Oral $Given 06/22/241918) heparin lock flush 100 unit/mL injection 100 Units (100 Units Intravenous $Given 06/22/242152) Assessments & Plan (with Medical Decision Making) Gianna Hernández is a 29 year old female who presents to the emergency department with back and leg pain, consistent with sickle cell pain crisis. No symptoms to suggest acute chest syndrome. No recent trauma to suggest vertebral fracture, contusion, muscle sprain or other traumatic injury. Laboratory workup is remarkable for hemoglobin 8.2 (stable compared to most recent labs from 2 daysago), white blood cell count elevated at 13.7 (increased compared to prior), bilirubin 1.4 (also stable compared to previous labs, testing negative, percent reticulocytes 5.3 (decreased from prior), absolute reticulocyte 0.130. Critical care was not performed. Medical Decision Making The patient's presentation was of high complexity (a chronic illness severe exacerbation, progression, or side effect of treatment). The patient's evaluation involved: review of external note(s) from 1 sources (notes from previous hospitalization) review of 3+ test result(s) ordered prior to this encounter (previous labs for comparison, previousimaging) ordering and/or review of 3+ test(s) in this encounter (see separate area of note for details) The patient's management necessitated moderate risk (prescription drug management including medications given in the ED), high risk (a parenteral controlled substance), and high risk (a decision regarding hospitalization). I have reviewed the nursing notes. I have reviewed the findings, diagnosis, plan and need for follow up with the patient. After medications were given in the emergency department, the patient feels better and would like to be discharged home at this time Patient to be discharged home. Advised to follow up with PCP within 1 week. To return to ER immediately with any new/worsening symptoms. Plan of care discussed with patient who expresses understanding and agrees with plan of care. New Prescriptions No medications on file Final diagnoses: Sickle cell anemia with crisis (H) LYNNE VARNER MD 06/22/2024 [facility] EMERGENCY DEPARTMENT Lynne Varner MD 06/22/24 1994 CTOR WHOLESALE * Milagros Lofton RN - 06/22/2024 5:06 PM CST Pt is here for sickle cell crisis. Pain in her back and both legs. PT took her home dilaudid oral at 2 pm. Pt coming in for her pain. Denies any symptoms. Triage Assessment (Adult) Row Name 06/22/24 8175 Triage Assessment Airway WDL WDL Respiratory WDL Respiratory WDL WDL Skin Circulation/Temperature WDL Skin Circulation/Temperature WDL WDL Cardiac WDL Cardiac WDL WDL Cardiac Rhythm Other (Comment) Peripheral/Neurovascular WDL Peripheral Neurovascular WDL WDL Cognitive/Neuro/Behavioral WDL Cognitive/Neuro/Behavioral WDL WDL CTOR WHOLESALE documented in this encounter Plan of Treatment Not on file documented as of this encounter Goals Goal Patient Goal Type Associated Problems Recent Progress Patient-Stated? Author Pain Management General On track( 025 12:40 PM DIRECTOR WHOLESALE) Yes Juhi Benson, RN Note: Goal Statement: [...] Comments CBC WITH PLATELETS AND DIFFERENTIAL STAT 06/22/2024 7:10 PM DIRECTOR WHOLESALE CBC WITH PLATELETS & DIFFERENTIAL STAT 06/22/2024 7:10 PM DIRECTOR WHOLESALE RETICULOCYTE COUNT STAT 06/22/2024 7: 10 PM DIRECTOR WHOLESALE HCG QUALITATIVE STAT 06/22/2024 7:10 PM DIRECTOR WHOLESALE COMPREHENSIVE METABOLIC PANEL STAT 06/22/2024 7:10 PM DIRECTOR WHOLESALE documented in this encounter Results * (ABNORMAL) CBC with platelets and differential (06/22/2024 7:10 PM DIRECTOR WHOLESALE) Pathologist [facility] WBC Count 13.7(H) 4.0 - 11.0 10e3/uL 06/22/2024 7:47 PM DIRECTOR WHOLESALE [facility] RBC Count 2.48(L) 3.80 - 5.20 10e6/uL 06/22/2024 7:47 PM DIRECTOR WHOLESALE [facility] Hemoglobin 8.2(L) 11.7 - 15.7 g/dL 06/22/2024 7:47 PM DIRECTOR WHOLESALE [facility] Hematocrit 23.3(L) 35.0 - 47.0 % 06/22/2024 7:47 PM DIRECTOR WHOLESALE [facility] MCV 94 78 - 100 fL 06/22/2024 7:47 PM DIRECTOR WHOLESALE [facility] MCH 33.1(H) 26.5 - 33.0 pg 06/22/2024 7:47 PM DIRECTOR WHOLESALE [facility] MCHC 35.2 31.5 - 36.5 g/dL 06/22/2024 7:47 PM DIRECTOR WHOLESALE [facility] RDW 18.6(H) 10.0 - 15.0 % 06/22/2024 7:47 PM DIRECTOR WHOLESALE [facility] Platelet Count 470(H) 150 - 450 10e3/uL 06/22/2024 7:47 PM DIRECTOR WHOLESALE [facility] % Neutrophils 78 % 06/22/2024 7:47 PM DIRECTOR WHOLESALE [facility] % Lymphocytes 16 % 06/22/2024 7:47 PM DIRECTOR WHOLESALE [facility] % Monocytes 4 % 06/22/2024 7:47 PM DIRECTOR WHOLESALE [facility] % Eosinophils 1 % 06/22/2024 7:47 PM DIRECTOR WHOLESALE [facility] % Basophils 1 % 06/22/2024 7:47 PM DIRECTOR WHOLESALE [facility] % Immature Granulocytes 1 % 06/22/2024 7:47 PM DIRECTOR WHOLESALE [facility] NRBCs per 100 WBC 3(H) <1 /100 025 7:47 PM DIRECTOR WHOLESALE [facility] Absolute Neutrophils 10.6(H) 1.6 - 8.3 10e3/uL 06/22/2024 7:47 PM DIRECTOR WHOLESALE [facility] Absolute Lymphocytes 2.3 0.8 - 5.3 10e3/uL 06/22/2024 7:47 PM DIRECTOR WHOLESALE [facility] Absolute Monocytes 0.5 0.0 - 1.3 10e3/uL 06/22/2024 7:47 PM DIRECTOR WHOLESALE [facility] Absolute Eosinophils 0.1 0.0 - 0.7 10e3/uL 06/22/2024 7:47 PM DIRECTOR WHOLESALE [facility] Absolute Basophils 0.1 0.0 - 0.2 10e3/uL 06/22/2024 7:47 PM DIRECTOR WHOLESALE [facility] Absolute Immature Granulocytes 0.1 <=0.4 10e3/uL 06/22/2024 7:47 PM DIRECTOR WHOLESALE [facility] Absolute NRBCs 0.4 10e3/uL 06/22/2024 7:47 PM DIRECTOR WHOLESALE [facility] Blood VENOUS LINE / Unknown Venipuncture / Unknown 06/22/2024 7:10 PM DIRECTOR WHOLESALE 06/22/2024 7:16 PM DIRECTOR WHOLESALE Lynne Varner MD LAB - BLOOD ORDERABLES Fin al Result [facility] [address] [facility], [address], [place] [address] [place] [address] * (ABNORMAL) Reticulocyte count (06/22/2024 7:10 PM DIRECTOR WHOLESALE) % Reticulocyte 5.3(H) 0.5 - 2.0 % 06/22/2024 7:23 PM DIRECTOR WHOLESALE [facility] Absolute Reticulocyte 0.130(H) 0.025 - 0.095 10e6/uL 06/22/2024 7:23 PM DIRECTOR WHOLESALE [facility] Blood VENOUS LINE / Unknown Venipuncture / Unknown 06/22/2024 7:10 PM DIRECTOR WHOLESALE 06/22/2024 7:16 PM DIRECTOR WHOLESALE Lynne Varner MD LAB - BLOOD ORDERABLES Fin al Result Performing Organization Address [facility] Co de Phone Number [facility] [address] [facility], [address] * HCG qualitative Blood (06/22/2024 7:10 PM DIRECTOR WHOLESALE) Pathologist [facility] hCG Serum Qualitative Negative Negative JARET 06/22/2024 7:45 PM DIRECTOR WHOLESALE [facility] Comment:This test is for scr eening purposes. Results should be interpreted along with the clinical picture. Confirmation testing is available if warranted by ordering [id number], HCG Quantitative . Blood VENOUS LINE / Unknown Venipuncture / Unknown 06/22/2024 7:10 PM DIRECTOR WHOLESALE 06/22/2024 7:26 PM DIRECTOR WHOLESALE Lynne Varner MD LAB - BLOOD ORDERABLES Fin al Result [facility] [address] [facility], [address] [place] [address], [facility] * (ABNORMAL) Comprehensive metabolic panel (06/22/2024 7:10 PM DIRECTOR WHOLESALE) Sodium 137 135 - 145 mmol/L 06/22/2024 8:00 PM DIRECTOR WHOLESALE [facility] Potassium 4.5 3.4 - 5.3 mmol/L 06/22/2024 8:00 PM DIRECTOR WHOLESALE [facility] Carbon Dioxide (CO2) 21(L) 22 - 29 mmol/L 06/22/2024 8:00 PM DIRECTOR WHOLESALE [facility] Anion Gap 8 7 - 15 mmol/L 06/22/2024 8:00 PM DIRECTOR WHOLESALE [facility] Urea Nitrogen 12.1 6.0 - 20.0 mg/dL 06/22/2024 8:00 PM DIRECTOR WHOLESALE [facility] Creatinine 0.71 0.51 - 0.95 mg/dL 06/22/2024 8:00 PM DIRECTOR WHOLESALE [facility] GFR Estimate >90 >60 mL/min/1.7 3m2 06/22/2024 8:00 PM DIRECTOR WHOLESALE [facility] Comment:eGFR calculated us2020 CKD-EPI equation. Calcium 9.5 8.8 - 10.4 mg/dL 06/22/2024 8:00 PM DIRECTOR WHOLESALE [facility] Chloride 108(H) 98 - 107 mmol/L 06/22/2024 8:00 PM DIRECTOR WHOLESALE [facility] Glucose 100(H) 70 - 99 mg/dL 06/22/2024 8:00 PM DIRECTOR WHOLESALE [facility] Alkaline Phosphatase 119 40 - 150 U/L 06/22/2024 8:00 PM DIRECTOR WHOLESALE [facility] AST 62(H) 0 - 45 U/L 06/22/2024 8:00 PM DIRECTOR WHOLESALE [facility] ALT 54(H) 0 - 50 U/L 06/22/2024 8:00 PM DIRECTOR WHOLESALE [facility] Protein Total 7.8 6.4 - 8.3 g/dL 06/22/2024 8:00 PM DIRECTOR WHOLESALE [facility] Albumin 4.1 3.5 - 5.2 g/dL 06/22/2024 8:00 PM DIRECTOR WHOLESALE [facility] Bilirubin Total 1.4(H) <=1.2 mg/dL 06/22/2024 8:00 PM DIRECTOR WHOLESALE [facility] Blood VENOUS LINE / Unknown Venipuncture / Unknown 06/22/2024 7:10 PM DIRECTOR WHOLESALE 06/22/2024 7:16 PM DIRECTOR WHOLESALE us Lynne Varner MD LAB - BLOOD ORDERABLES Fin al Result [facility] [address] [facility], [address] [place] [address] documented in this encounter Visit Diagnoses Diagnosis Sickle cell anemia with crisis (H) Hb-SS disease with crisis documented in this encounter Administered Medications Inactive Administered Medications - up to 3 most recent administrations Medication Order MAR Action Action Date Dose Rate Site diphenhydrAMINE (BENADRYL) capsule 25 mg 25 mg, Oral, ONCE, On Citlali 06/22/24 at 1740, For 1 dose $Given 06/22/2024 7:19 PM DIRECTOR WHOLESALE 25 mg heparin lock flush 100 unit/mL injection 100 Units 100 Units, Intravenous, ONCE, On Citlali 06/22/24 at 2150, For 1 dose $Given 06/22/2024 9:53 PM DIRECTOR WHOLESALE 100 Units hydromorphone (DILAUDID) injection 2 mg 2 mg, Intravenous, EVERY 1 HOUR PRN, severe pain, Starting on Citlali 06/22/24 at 1735, For 3 doses $Given 06/22/2024 9:33 PM DIRECTOR WHOLESALE 2 mg $Given 06/22/2024 8:34 PM DIRECTOR WHOLESALE 2 mg $Given 06/22/2024 7:20 PM DIRECTOR WHOLESALE 2 mg lactated ringers BOLUS 1,000 mL Intravenous, 1,000 mL, ONCE, at 1,000 mL/hr, Administer over 1 Hours, On Citlali 06/22/24 at 1740, For 1 dose $New Bag 06/22/2024 7:19 PM DIRECTOR WHOLESALE 1,000 mLs 1000 mL/hr ondansetron (ZOFRAN) injection 4 mg 4 mg, Intravenous, EVERY 30 MIN PRN, nausea, vomiting, Administer over 2-5 Minutes, Starting on Citlali 06/22/24 at 1735, For 3 doses, May repeat in 30 minutes as needed, up to 3 doses. $Given 06/22/2024 7:19 PM DIRECTOR WHOLESALE 4 mg documented in this encounter Active and Recently Administered Medications Times are shown in DIRECTOR WHOLESALE. Scheduled Medication Order 06/20/2024 06/21/2024 06/22/2024 diphenhydrAMINE (BENADRYL) capsule 25 mg (COMPLETED) 25 mg, Oral, ONCE, On Citlali 06/22/24 at 1740, For 1 dose 1918 ($Given - Provi nas: Gunner Galindo RN) heparin lock flush 100 unit/mL injection 100 Units (COMPLETED) 100 Units, Intravenous, ONCE, On Citlali 06/22/24 at 2150, For 1 dose 2152 ($Given - Provi nas: Milagros Lofton RN) lactated ringers BOLUS 1,000 mL (COMPLETED) Intravenous, 1,000 mL, ONCE, at 1,000 mL/hr, Administer over 1 Hours, On Citlali 06/22/24 at 1740, For 1 dose 1918 ($New Bag - Pro vider: Gunner Galindo RN)2123 (Stopped - Provider: Kathy Mann RN) PRN Medication Order 06/20/2024 06/21/2024 06/22/2024 hydromorphone (DILAUDID) injection 2 mg (COMPLETED) 2 mg, Intravenous, EVERY 1 HOUR PRN, severe pain, Starting on Citlali 06/22/24 at 1735, For 3 doses 1919 ($Given - Provi nas: Gunner Galindo RN)2033 ($Given - Provider: Kathy Mann, SOFIA)2132 ($Given - Provider: Kathy Mann RN) ondansetron (ZOFRAN) injection 4 mg 4 mg, Intravenous, EVERY 30 MIN PRN, nausea, vomiting, Administer over 2-5 Minutes, Starting on Citlali 06/22/24 at 1735, For 3 doses, May repeat in 30 minutes as needed, up to 3 doses. 1918 ($Given - Provi nas: Gunner Galindo RN) documented in this encounter Care Teams [employer] Relationship Specialty Start Date End Date Veronica Joseph MD [address] [place] [address] PCP - General Family Medicine 06/18/24 Mor Ramsey Medical Student 04/03/24 Case Samuel MD [address] [place] [address] 484, [address] [place] [address] Assigned Pediatric Specialist Provider 05/18/24 Juhi Benson, RN Specialty [employer] Hematology & Oncology 05/29/24 documented as of this encounter
--- OUTSIDE RECORDS SUMMARY | 2024-06-24 20:11 | XMS_ITS | Encounter Summary ---
Author Organization [facility] Address [address] [place] [address]. [place] [address] Care Team Providers Care Staff Sonographer Name Role Phone No Ref-Primary, Physician Primary Care Provider Mor Ramsey Unavailable Unavailable Case Samuel MD Unavailable [phone] Juhi eBnson RN Unavailable Unavailable Veronica Joseph MD Primary Care Provider [phone] Reason for Visit * Reason Comments Shortness of Breath Chest Pain Fever * Auth/Cert Specialty Diagnoses / Procedures Referred By Contac t Referred To Contact EMERGENCY MEDICINE Diagnoses Sickle cell pain crisis (H) [facility] Emergency Department [address] [place] [address] Phone: tel: Referral ID Status Reason Start Date Expiration Date Visits Re quested Visits Authorized [id number] 1 1 Encounter Details Date Type Department Care Team (Late st Contact Info) Description 06/16/2024 4:46 PM ROLLER MAN - 06/20/2024 11:00 AM ROLLER MAN Hospital Encounter [facility] 7C Med Surg [address] [place] [phone] Abimael Schofield MD [address] [place] [address] [id number] Esdras Markham MD [address] [place] [address] German Hall MD [address] [place] [address] [address] [place] [address] Sickle cell pain crisis (H) [...] in an overnight longterm, or couch-surfing.) Yes 06/20/2024 Are you worried [...] on file Legal Sex Female 8:25 AM ROLLER MAN Gender Identity Not on file Sexual Orientation Not on file documented as of this encounter Last Filed Vital Signs Vital Sign Reading Time Taken Comments Blood Pressure 106/62 06/20/2024 6:00 AM ROLLER MAN Pulse 78 06/19/2024 2:25 PM ROLLER MAN Temperature 36.7 C (98 F) 06/20/2024 6:00 AM ROLLER MAN Respiratory Rate 18 06/20/2024 6:00 AM ROLLER MAN Oxygen Saturation 99% 06/20/2024 6:00 AM ROLLER MAN Inhaled Oxygen Concentration - - Weight - - Height - - Body Mass Index - - documented in this encounter Discharge Summaries * Rl Elias MD - 06/20/2024 8:39 AM CST [facility] Discharge Summary - Medicine & Pediatrics Date [...] her pain can be managed with her COAL WHEELER dilaudid 4mg q6h PRN. Hematology team is aware of discharge today and will arrange follow up. - continue COAL WHEELER dilaudid 4 mg Q6H PRN & further supportive cares as needed - follow up with Hematology as scheduled by their team - Continue COAL WHEELER hydroxyurea 1000mg BID - Continue COAL WHEELER folic acid 1mg daily - Continue topical diclofenac, lidocaine, icy hot PRN #ANGIE, resolved Likely prerenal with decreased PO intake. Cr 0.92 on admission, baseline ~0.61- 0.7. Improved with maintenance fluids. Encouraged adequate water intake at home. #Insomnia - melatonin 3 mg PRN #Anxiety - Continue COAL WHEELER fluoxetine Consultations This Hospital Stay HEMATOLOGY ADULT IP CONSULT CARE MANAGEMENT / SOCIAL WORK IP CONSULT Code Status Full Code Nivia Carvajal, MS3 Ricardo 1 Hospitalist Service [facility] 7C MED SURG [address] [id number] Physical Exam Vital Signs: Temp: 98 ??F [...] upon discharge: activity as tolerated Follow Up ([facility]) Follow up with primary care provider, Veronica Joseph, within 7 days for hospital follow- up. Thefollowing labs/tests are recommended: CBC. Appointments on [place] and/or [facility] (with [facility] or [facility] provider or service). Call [phone] if you haven't heard regarding these appointments [...] inadequate. naloxone (NARCAN) 4 MG/0.1ML nasal spray Wishram 1 spray (4 mg) into one nostril [...] Aydee Coughlin MD at 06/20/2024 11:52 AM ROLLER MAN ER MAN ER MAN Associated attestation - Aydee Coughlin MD - 06/20/2024 11:52 AM ROLLER MAN Physician Attestation I saw and evaluated this [...] 05/01/2024 naloxone (NARCAN) 4 MG/0.1ML nasal spray Wishram 1 spray (4 mg) into one nostril [...] stated on the papers. Home supply :N/A. ER MAN * Araceli Ramires MD - 06/20/2024 8:42 [...] Overall, I spent 35 minutes today (DOS) atgd-he-dsjo and/or coordinating care as documented above and specifically listed as below: --Reviewing documentation related to patient's history and this current admission available in [employer] --Review and clinical interpretation of pertinent laboratory test results from this admission --Discussion with the patient --Discussion with patient's primary team --Documentation in the electronic health record ER MAN * Linda Lomax MD - 06/19/2024 7:43 [...] Service (when I saw the patient): 06/19/24 [facility] Progress Note - Medicine Service, [facility] TEAM [...] senna PRN for supportive measures - Continue COAL WHEELER hydroxyurea 1000mg BID - Continue COAL WHEELER folic acid 1mg daily - Monitoring CBC [...] melatonin 3 mg PRN #Anxiety - Continue COAL WHEELER fluoxetine - Benadryl PRN per Pain Plan [...] Nivia Carvajal, MS3 Medical Student Medicine Service, [address] Securely message with [employer] info) Text page via [facility] Paging/Directory See signed in provider for [...] previous visit (from the past 24 hours). ER MAN * Tejal Curry RN - 06/18/2024 6:54 PM CST Shift: 0962-5318 VS: Temp: 98.3 ??F (36.8 ??C) Temp [...] light appropriately Plan: Continue POC; manage pain ER MAN * Linda Lomax MD - 06/18/2024 10:18 AM CST [facility] Progress Note - Medicine Service, [facility] TEAM [...] benadryl, senna PRN for supportive measures -Continue COAL WHEELER hydroxyurea 1000mg BID -Continue COAL WHEELER folic acid 1mg daily - monitoring CBC w/diff, LDH, reticulocyte count, and LDH daily - type & screened, consented - continue topical diclofenac, lidocaine, icy hot PRN - blood cultures, urine culture >> NGTD #ANGIE, resolved Likely prerenal with decreased PO intake. - mIVF with LR - CMP in AM #Insomnia - Continue COAL WHEELER fluoxetine - melatonin 3 mg PRN Diet: [...] Hall . Linda Lomax MD Medicine Service, [facility] TEAM [address] [place] [address] Securely message with [employer] (more info) Text page via [facility] Paging/Directory See signed in provider for [...] (!) 129/100 Pulse: 78 Resp: 16 SpO2: 100% O2 Device: None (Room air) Weight: 0 [...] German Hall MD at 06/18/2024 3:16 PM ROLLER MAN ER MAN ER MAN Associated attestation - German Hall MD - 06/18/2024 3:16 PM ROLLER MAN Attestation: This patient has been seen and [...] Overall, I spent 35 minutes today (DOS) mxjw-ky-hqxw and/or coordinating care as documented above and specifically listed as below: --Reviewing documentation related to patient's history and this current admission available in [employer] --Review and clinical interpretation of pertinent laboratory test results from this admission --Discussion with the patient --Discussion with patient's primary team --Documentation in the electronic health record ER MAN * Rl Elias MD - 06/17/2024 11:31 AM CST [facility] Progress Note - [facility] Date of Admission: 06/16/2024 Assessment [...] benadryl, senna PRN for supportive measures -Continue COAL WHEELER hydroxyurea 1000mg BID -Continue COAL WHEELER folic acid 1mg daily - monitoring CBC w/diff, LDH, reticulocyte count, and LDH daily - type & screened, consented - continue topical diclofenac, lidocaine, icy hot PRN - blood cultures, urine culture to evaluate any further source of infection #ANGIE Likely prerenal with decreased PO intake. - mIVF with LR - CMP in AM #Insomnia - Continue COAL WHEELER fluoxetine - melatonin 3 mg PRN Diet: [...] Hall . RL ELIAS MD Medicine Service, [address] Securely message with [employer] ([employer] info) Text page via [facility] Paging/Directory See signed in provider for [...] Narrative EXAM: XR CHEST 2 VIEWS LOCATION: [facility] DATE: 06/16/2024 INDICATION: chest pain COMPARISON: 06/12/2024 Impression IMPRESSION: Left chest port catheter in stable position. Stable position of right central venous catheter. No airspace opacity, pleural effusion or pneumothorax. Cosigned by German Hall MD at 06/18/2024 3:07 PM ROLLER MAN ER MAN ER MAN ER MAN Associated attestation - German Hall MD - 06/18/2024 3:07 PM ROLLER MAN Attestation: This patient has been seen and evaluated by me, German Hall MD. Discussed with the house staff team or resident(s) and agree with the findings and plan in this note. I have reviewed today's Medications, Vital Signs, and Labs. DOS 06/17 documented in this encounter H&P Notes * Laquita Kelley MD - 06/16/2024 7:59 PM CST [facility] History and Physical - Medicine Service, [facility] [...] IV -mIVF with NS at 100ml/hr -Continue COAL WHEELER hydroxyurea 1000mg BID -Continue COAL WHEELER folic acid 1mg -PRN zofran for nausea -PRN benadryl for itching #ANGIE Likely prerenal with decreased PO intake. -mIVF with NS -Monitor #Insomnia -Continue COAL WHEELER fluoxetine Diet: Regular DVT Prophylaxis: Enoxaparin (Lovenox) SQ Santiago Catheter: Not present Fluids: NS at 100ml/hr Lines: PRESENT Cardiac Monitoring: None Code Status: Full Clinically Significant Risk Factors Present on Admission # Anemia: based on hgb <11 # Financial/Environmental Concerns: Disposition Plan Expected Discharge Date: 06/18/2024 The patient's care was discussed with the Attending Physician, Dr. Markham . Laquita Kelley MD Medicine Service, [facility] Securely message with [employer] (more info) Text page via [facility] Paging/Directory See signed in provider for [...] 4 MG/0.1ML nasal spray No No Sig: Wishram 1 spray (4 mg) into one nostril [...] Esdras Markham MD at 06/17/2024 11:00 AM ROLLER MAN ER MAN ER MAN Associated attestation - Esdras Markham MD - 06/17/2024 11:00 AM ROLLER MAN Physician Attestation I saw this patient with [...] this encounter Consult Notes * CurtisAdelaide beltran, INDUSTRIAL ECONOMIST - 06/18/2024 10:26 AM CSTAssociated Order(s): CARE [...] Communication Assessment Patient's communication style: spoken language (Swedish or Bilingual) Cognitive Cognitive/Neuro/Behavioral: WDL Living Environment: [...] Depression: Not at risk (04/11/2024) [facility] [employer] [facility] PHQ-2 PHQ-2 TOTAL SCORE: 1 Housing Stability: [...] Social Connections: Socially Integrated (03/28/2024) Received from [email or web address] [facility] Social Connections Do you often feel [...] No Current Concerns Values/Beliefs: Spiritual, Cultural Beliefs, [employer] Practices, Values that affect care: no Discussed [...] Care management signing off. LAURA Palacios 06/18/2024 [employer] Social Work and Care Management Department SEARCHABLE in [employer] - search SOCIAL WORK [place] [phone]) Wednesday and Wednesday Units: 4A Vocera, 4C Vocera, & 4E Vocera Units: 5A 5073-0772 Vocera, 5A 0505-0955 Vocera , BMT SW 1 BMT SW 2, BMT SW 3 & BMT SW 4 5C OffService 5401 - 5477 5C Off Service [phone] Units: 6A Vocera & 6B Vocera Units: 6C Vocera Units: 7A Vocera & 7B Vocera Units: 7C Med Surg 7401 thru 7418 and 7C Med Surg 7502 thru 7521 Unit: [place] ED Vocera & [place] Obs Vocera [facility] ([phone]) Wednesday and Wednesday Units: 5 Ortho Vocera, 5 Med Surg Vocera & WB ED Vocera Units: 6 Med Surg Vocera, 8 Med Surg Vocera, & 10 ICU Vocera After hours Vocera [facility] and After Hours Vocera [place] Please NOTE changes to times below: Wednesday & Wednesday (1629 - 2029) Wed-Fri ([phone]) [facility] Recognized Holidays ([phone]) Units: ALL - see above VOCERA links to units ER MAN * Drake Nina MD - 06/17/2024 8:55 AM CSTAssociated Order(s): HEMATOLOGY ADULT IP CONSULT Images from the original note were not included. Hematology Consult Note Date of Service: 06/17/2024 Patient: Gianna Hernández Admission Date: 06/16/2024 Hospital Day # 1 Hematology Diagnosis: Sickle Cell Disease Primary Outpatient Stroke Coordinator: Dr. Samuel Reason for Consult: Vasoocclusive pain [...] the care coordination note. Please continue her COAL WHEELER hydrea and folic acid. Recommendations: - Please follow pain plan as outlined in the care coordination note in the summary section. - Ordered 1 unit PRBC along with blood consent which is placed in the chart. - Please continue COAL WHEELER hydrea 1000 mg BID, Folate 1mg daily. [...] Drake Nina MD Hematology/Oncology/BMT Fellow PGY4 Pager: [phone] History of Present Illness: Gianna Hernández is [...] Currently Drug use: Never Social History Narrative Gsts-zl-wgtw mom. Recently moved to [place] from [place], [place]. She is 1 of 9 [...] Social Connections: Socially Integrated (03/28/2024) [facility] Social Connections Do you often feel [...] inadequate. naloxone (NARCAN) 4 MG/0.1ML nasal spray Wishram 1 spray (4 mg) into one nostril [...] Araceli Ramires MD at 06/17/2024 11:14 AM ROLLER MAN ER MAN ER MAN Associated attestation - Araceli Ramires MD - 06/17/2024 11:14 AM ROLLER MAN Hematology Consult Attending Attestation I reviewed the [...] Overall, I spent 60 minutes today (DOS) ictz-wb-hwsi and/or coordinating care as documented above and specifically listed as below: --Reviewing documentation related to patient's history and this current admission available in [facility] --Review and clinical interpretation of pertinent [...] time: Means of arrival: Comments: G 41 ER MAN * Abimael Schofield MD - 06/16/2024 5:18 PM CST ED Provider Note [facility] History Chief Complaint Patient presents with [...] sinus tachycardia rate of 122 with a WV interval of 0.128 and a QRS duration of 0.074. The patient had a normal axis with no acute ST or T wave changes significant for ischemia. This is read by me personally. Procedures Results for orders placed or performed during the hospital encounter of 06/16/24 Chest XR, PA & LAT Status: None Narrative EXAM: XR CHEST 2 VIEWS LOCATION: [facility] DATE: 06/16/2024 INDICATION: chest pain COMPARISON: [...] Range ABO/RH(D) A POS SPECIMEN EXPIRATION DATE [id number] CBC with platelets differential Status: Abnormal (In process) Narrative The following orders were created for panel order CBC with platelets differential. Procedure Abnormality Status --------- ------ CBC with platelets and d...[[id number]] Abnormal Preliminary result RBC and Platelet Morphology[[id number]] In process Please view results for these tests on the individual orders. ABO/Rh type and screen Status: None (In process) Narrative The following orders were created for panel order ABO/Rh type and screen. Procedure Abnormality Status --------- ------ Adult Type and Screen[[id number]] Preliminary result Please view results for these tests on the individual orders. Medications sodium chloride (PF) 0.9% PF flush 3 mL (has no administration in time range) sodium chloride (PF) 0.9% PF flush 3 mL (has no administration in time range) sodium chloride 0.9% BOLUS 500 mL (500 mLs Intravenous $New Bag 06/16/24 6979) sodium chloride 0.9 % infusion (has no administration in time range) hydromorphone (DILAUDID) injection 2 mg (2 mg Intravenous $Given 06/16/24 2126) Critical care was not performed. Medical Decision [...] chest syndrome Admit Med Abimael Schofield MD [facility] EMERGENCY DEPARTMENT 06/16/2024 Abimael Schofield MD 06/16/24 1846 ER MAN * Yelitza Manriquez RN - 06/16/2024 4:37 [...] WDL WDL Cognitive/Neuro/Behavioral WDL Cognitive/Neuro/Behavioral WDL WDL ER MAN documented in this encounter Miscellaneous Notes * [...] verbalized hope to discharge to home today ER MAN * Summary of Care - Rene Morocho RN - 06/20/2024 12:38 AM CST (Change note type to summary of care) Reason for admission: Sickle cell crisis Admitted from: [id number] Report received from: Sarai Aburto 2 RN skin assessment completed by: Ar Fleming and Sarai Myaberry - Findings (add LDA if needed): NA Bed algorithm reevaluated: NA Was airflow pump ordered?: NO Suction set up in room? YES Care plan (primary problem) and education initiated: YES MDRO education done if applicable: NA Pt informed about policy regarding no IV pumps off unit: Yes Flu shot ordered? (January-July only): No, pt declined Detailed Belongings: [place] sweater, brown jacket, sweatpants, glasses, wallet, phone, 2 chargers, air pods ER MAN * Plan of Care - Sarai Shrestha RN - 06/20/2024 12:11 AM CST Goal Outcome Evaluation: BP 103/79,HR 87bpm, resp 18,O2 99 RA Shift:9920-9056 Alert and oriented x4. Independent with ADLs. VSS. Pain managed with Q 2 hrs IV Dilaudid. C/O nausea PRN Zofran administered;effective. R chest port infusing LR @ 75 ml/hr. Report given to Rene BLACK in 7C. ER MAN * Plan of Care - Amelia Gannon RN - 06/19/2024 6:26 AM CST Images from the original note were not included. Shift: 0498-0720 VS: BP 118/85 (BP Location: Left arm) Pulse 99 Temp 98.2 ??F (36.8 ??C) (Oral) Resp 18 [id number]% Pain: Sickle cell pain. Tx with scheduled dilaudid q2hr Neuro: WDL, A&Ox4 Cardiac: WDL Respiratory: WDL, on RA, on pulse ox GI/: WDL, Voiding spontaneously Diet/Appetite: Regular diet LDA's: R. Chest port infusing LR @ 75 Skin: WDL Activity: Independent Tests/Procedures: Pertinent Labs/Lab Collection: Plan: Goal Outcome Evaluation: ER MAN * Plan of Care - Adelaide Acevedo MSW - 06/18/2024 11:05 AM CST Goal Outcome Evaluation: Plan of Care Reviewed With: patient Overall Patient Progress: improvingOverall Patient Progress: improving Pt anticipates discharge home w/ family once med ready ER MAN * Plan of Care - Amelia Gannon RN - 06/18/2024 6:51 AM CST Shift: 5064-1068 VS: BP 115/66 (BP Location: Right arm, [...] Platelet, Creatinine, Reticulocyte Plan: Goal Outcome Evaluation: ER MAN * Plan of Care - Lowell Pepper RN - 06/17/2024 9:37 PM CSTSummary: 3540-2351 BP 110/64 (BP Location: Right arm, Patient [...] Goal: Optimal Comfort and Wellbeing Outcome: Progressing ER MAN * Provider Notification - Lowell Pepper RN - 06/17/2024 10:00 AM CST 06/17/24 0857 Critical Test Results/Notification Critical Lab Result (Lab Name and Value) Hgb 6.3 What Time Did The Lab Notify You? (follow up page. to day time provider.) Provider Notified yes Date of Provider Notification 06/17/24 Time of Provider Notification 0848 Mechanism of Provider notification telephone (via [employer]) What Provider Did You Notify? Neptali Elias MD Response aware (per primary teams. Awaiting recommendations from hematology team.) ER MAN * Plan of Care - Zaynab Veliz RN - 06/17/2024 6:55 AM CST Goal Outcome Evaluation: Plan of Care Reviewed With: patient Overall Patient Progress: improving Outcome Evaluation: Pt presented to ED with acute onset left sided chest pain & sickle cell pain crisis Shift: 3952-8480 VS: Stable on RA, afebrile Neuro: A&Ox4 Labs: hemoglobin 6.3, provider notified Pain/Nausea: pain rated 8-9/10 PRN: benadryl X2, zofran x 1 Diet: Regular IV Access: none Infusion(s): NACL 100ml/hr Lines/Drains: L-chest wall GI/: voids without difficulty Skin: intact Mobility: up ad chandler Plan: Continue POC ER MAN * Provider Notification - Zaynab Veliz RN - 06/17/2024 6:47 AM ROLLER MAN Jovan encinas lab called, critical value, pt hemoglobin 6.3. ER MAN * Medication Scribe - Admission Medication History - Yennifer Edwards - 06/17/2024 4:14 AM CST Medication Scribe Admission Medication History Admission medication history is complete. The information provided in this note is only as accurateas the sources available at the time of the update. Information Source(s): Patient via in-person Pertinent Information: per pt+CE, pt reported taking medications on COAL WHEELER medication list as directed. No DRH. Changes made to COAL WHEELER medication list: Added: None Deleted: None Changed: None Allergies reviewed with patient and updates made in EHR: yes Medication History Completed By: Yennifer Edwards 06/17/2024 4:14 AM COAL WHEELER Med List Medication Sig Last Dose/Taking cefpodoxime [...] 1 tablet by mouth daily. 06/16/2024 Morning ER MAN ER MAN documented in this encounter Plan of Treatment Not on file documented as of this encounter Goals Goal Patient Goal Type Associated Problems Recent Progress Patient-Stated? Author Pain Management General On track( 025 12:40 PM ROLLER MAN) Yes Juhi Benson, SOFIA Note: Goal Statement: [...] PLATELETS AND DIFFERENTIAL STAT 06/20/2024 5:48 AM ROLLER MAN LACTATE DEHYDROGENASE Routine 06/20/2024 5:48 AM ROLLER MAN CBC WITH PLATELETS & DIFFERENTIAL STAT 06/20/2024 5:48 AM ROLLER MAN RETICULOCYTE COUNT Routine 06/20/2024 5: 48 AM ROLLER MAN COMPREHENSIVE METABOLIC PANEL Routine 06/20/2024 5:48 AM ROLLER MAN RBC AND PLATELET MORPHOLOGY STAT 06/19/2024 9:30 AM ROLLER MAN CBC WITH PLATELETS AND DIFFERENTIAL STAT 06/19/2024 9:30 AM ROLLER MAN LACTATE DEHYDROGENASE STAT 06/19/2024 9:30 AM ROLLER MAN CBC WITH PLATELETS & DIFFERENTIAL STAT 06/19/2024 9:30 AM ROLLER MAN RETICULOCYTE COUNT STAT 06/19/2024 9: 30 AM ROLLER MAN COMPREHENSIVE METABOLIC PANEL STAT 06/19/2024 9:30 AM ROLLER MAN PLATELET COUNT STAT 06/19/2024 12:17 AM ROLLER MAN CREATININE STAT 06/19/2024 12:17 AM ROLLER MAN CBC WITH PLATELETS AND DIFFERENTIAL STAT 06/18/2024 8:24 AM ROLLER MAN LACTATE DEHYDROGENASE STAT 06/18/2024 8:24 AM ROLLER MAN CBC WITH PLATELETS & DIFFERENTIAL STAT 06/18/2024 8:24 AM ROLLER MAN RETICULOCYTE COUNT STAT 06/18/2024 8: 24 AM ROLLER MAN DIFFERENTIAL STAT 06/18/2024 8:24 AM ROLLER MAN COMPREHENSIVE METABOLIC PANEL STAT 06/18/2024 8:24 AM ROLLER MAN ROUTINE UA WITH MICROSCOPIC REFLEX TO CULTURE STAT 06/17/2024 1:11 PM ROLLER MAN TRANSFUSE RED BLOOD CELLS (UNIT) STAT 06/17/2024 10:26 AM ROLLER MAN PREPARE RED BLOOD CELLS (UNIT) STAT 06/17/2024 9:12 AM ROLLER MAN TRANSFERRIN Add-On 06/17/2024 6:16 AM ROLLER MAN IRON AND IRON BINDING CAPACITY Add-On 06/17/2024 6:16 AM ROLLER MAN BASIC METABOLIC PANEL STAT 06/17/2024 6:16 AM ROLLER MAN CBC WITH PLATELETS STAT 06/17/2024 6: 16 AM ROLLER MAN TROPONIN T, HIGH SENSITIVITY STAT 06/16/2024 9:33 PM ROLLER MAN XR CHEST 2 VIEWS STAT 06/16/2024 6:09 PM ROLLER MAN RBC AND PLATELET MORPHOLOGY STAT 06/16/2024 5:37 PM ROLLER MAN CBC WITH PLATELETS AND DIFFERENTIAL STAT 06/16/2024 5:37 PM ROLLER MAN TYPE AND SCREEN, ADULT STAT 5:37 PM ROLLER MAN TROPONIN T, HIGH SENSITIVITY STAT 06/16/2024 5:37 PM ROLLER MAN CBC WITH PLATELETS & DIFFERENTIAL STAT 06/16/2024 5:37 PM ROLLER MAN PROLACTIN STAT 06/16/2024 5:37 PM ROLLER MAN COMPREHENSIVE METABOLIC PANEL STAT 06/16/2024 5:37 PM ROLLER MAN BLOOD CULTURE STAT 06/16/2024 5:37 PM ROLLER MAN ABO/RH TYPE AND SCREEN STAT 5:37 PM ROLLER MAN EKG 12-LEAD, TRACING ONLY STAT 06/16/2024 4:55 PM ROLLER MAN documented in this encounter Results * (ABNORMAL) CBC with platelets and differential (06/20/2024 5:48 AM ROLLER MAN) WBC Count 9.3 4.0 - 11.0 10e3/uL 06/20/2024 6:05 AM ROLLER MAN [facility] RBC Count 2.54(L) 3.80 - 5.20 10e6/uL 06/20/2024 6:05 AM ROLLER MAN [facility] Hemoglobin 8.0(L) 11.7 - 15.7 g/dL 06/20/2024 6:05 AM ROLLER MAN [facility] Hematocrit 23.2(L) 35.0 - 47.0 % 06/20/2024 6:05 AM ROLLER MAN [facility] MCV 91 78 - 100 fL 06/20/2024 6:05 AM ROLLER MAN [facility] MCH 31.5 26.5 - 33.0 pg 06/20/2024 6:05 AM ROLLER MAN [facility] MCHC 34.5 31.5 - 36.5 g/dL 06/20/2024 6:05 AM ROLLER MAN [facility] RDW 18.4(H) 10.0 - 15.0 % 06/20/2024 6:05 AM ROLLER MAN [facility] Platelet Count 435 150 - 450 10e3/uL 06/20/2024 6:05 AM ROLLER MAN [facility] % Neutrophils 47 % 06/20/2024 6:05 AM ROLLER MAN [facility] % Lymphocytes 43 % 06/20/2024 6:05 AM ROLLER MAN [facility] % Monocytes 6 % 06/20/2024 6:05 AM ROLLER MAN [facility] % Eosinophils 3 % 06/20/2024 6:05 AM ROLLER MAN [facility] % Basophils 1 % 06/20/2024 6:05 AM ROLLER MAN [facility] % Immature Granulocytes 1 % 06/20/2024 6:05 AM ROLLER MAN [facility] NRBCs per 100 WBC 1(H) <1 /100 025 6:05 AM ROLLER MAN [facility] Absolute Neutrophils 4.4 1.6 - 8.3 10e3/uL 06/20/2024 6:05 AM ROLLER MAN [facility] Absolute Lymphocytes 4.0 0.8 - 5.3 10e3/uL 06/20/2024 6:05 AM [facility] MAN [facility] Absolute Monocytes 0.5 0.0 - 1.3 10e3/uL 06/20/2024 6:05 AM ROLL[facility] MAN [facility] Absolute Eosinophils 0.3 0.0 - 0.7 10e3/uL 06/20/2024 6:05 AM ROLL[facility] MAN [facility] Absolute Basophils 0.1 0.0 - 0.2 10e3/uL 06/20/2024 6:05 AM RO[facility] MAN [facility] Absolute Immature Granulocytes 0.1 <=0.4 10e3/uL 06/20/2024 6:05 AM ROLLER MAN [facility] Absolute NRBCs 0.1 10e3/uL 06/20/2024 6:05 AM ROLLER MAN [facility] Blood (Portacath) IVAD (Port) / Unknown 06/20/2024 5:48 AM ROLLER MAN 06/20/2024 5:55 AM ROLLER MAN Rl Elias MD LAB - BLOOD ORDER SYD Final Result U LABORATORY [facility] [place] [facility] [address] [facility], [address] * (ABNORMAL) Reticulocyte count (06/20/2024 5:48 AM ROLLER MAN) [facility] % Reticulocyte 9.6(H) 0.5 - 2.0 % 06/20/2024 6:37 AM ROLLER MAN [facility] Absolute Reticulocyte 0.236(H) 0.025 - 0.095 10e6/uL 06/20/2024 6:37 AM ROLLER MAN [facility] Blood (Portacath) IVAD (Port) / Unknown 06/20/2024 5:48 AM ROLLER MAN 06/20/2024 5:55 AM ROLLER MAN Rl Elias MD LAB - BLOOD ORDER SYD Final Result [facility] [place] [facility] [address] [facility], [address] [place] [address], [place] * (ABNORMAL) Comprehensive metabolic panel (06/20/2024 5:48 AM ROLLER MAN) Sodium 133(L) 135 - 145 mmol/L 06/20/2024 6:35 AM ROLLER MAN [facility] Potassium 4.6 3.4 - 5.3 mmol/L 06/20/2024 6:35 AM ROLLER MAN [facility] Carbon Dioxide (CO2) 21(L) 22 - 29 mmol/L 06/20/2024 6:35 AM ROLL[facility] MAN [facility] Anion Gap 8 7 - 15 mmol/L 06/20/2024 6:35 AM RO[facility] MAN [facility] Urea Nitrogen 14.6 6.0 - 20.0 mg/dL 06/20/2024 6:35 AM RO[facility] MAN [facility] Creatinine 0.66 0.51 - 0.95 mg/dL 06/20/2024 6:35 AM ROLLER MAN [facility] GFR Estimate >90 >60 mL/min/1.7 3m2 06/20/2024 6:35 AM ROLLER MAN [facility] Comment:eGFR calculated usin 2020 CKD-EPI equation. Calcium 8.7(L) 8.8 - 10.4 mg/dL 06/20/2024 6:35 AM ROLLER MAN [facility] Chloride 104 98 - 107 mmol/L 06/20/2024 6:35 AM ROLLER MAN [facility] Glucose 100(H) 70 - 99 mg/dL 06/20/2024 6:35 AM ROLLER MAN [facility] Alkaline Phosphatase 98 40 - 150 U/L 06/20/2024 6:35 AM ROLLER MAN [facility] AST 67(H) 0 - 45 U/L 06/20/2024 6:35 AM ROLLER MAN [facility] ALT 40 0 - 50 U/L 06/20/2024 6:35 AM ROLL[facility] MAN [facility] Protein Total 7.2 6.4 - 8.3 g/dL 06/20/2024 6:35 AM [facility] MAN [facility] Albumin 3.9 3.5 - 5.2 g/dL 06/20/2024 6:35 AM RO[facility] MAN [facility] Bilirubin Total 1.5(H) <=1.2 mg/dL 06/20/2024 6:35 AM ROLL[facility] MAN [facility] Blood (Portacath) IVAD (Port) / Unknown 06/20/2024 5:48 AM ROLLER MAN 06/20/2024 5:55 AM ROLLER MAN Rl Elias MD LAB - BLOOD ORDER SYD Final Result [facility] [place] [facility] [address] [facility], [address] [phone] * (ABNORMAL) Lactate Dehydrogenase (06/20/2024 5:48 AM ROLLER MAN) [facility] Lactate Dehydrogenase 571(H) 0 - 250 U/L 06/20/2024 6:35 AM ROLLER MAN [facility] Blood (Portacath) IVAD (Port) / Unknown 06/20/2024 5:48 AM ROLLER MAN 06/20/2024 5:55 AM ROLLER MAN Rl Elias MD LAB - BLOOD ORDER SYD Final Result [facility] [place] [facility] [address] [facility], [address] [phone] * (ABNORMAL) RBC and Platelet Morphology (06/19/2024 9:30 AM ROLLER MAN) [facility] RBC Morphology Confirmed RBC Indices 06/19/2024 11:43 AM ROLLER MAN [facility] Platelet Assessment Automated Count Confirmed. Giant platelets are present.(A) Automated Count Confirmed. Platelet morphology is normal. 06/19/2024 11:43 AM ROLLER MAN [facility] Giant Platelets Slight(A) None Seen 11:43 AM ROLLER MAN [facility] Elliptocytes None Seen None Seen 06/19/2024 11:43 AM ROLLER MAN [facility] Polychromasia Slight(A) None Seen 06/19/2024 11:43 AM ROLLER MAN [facility] RBC Fragments Slight(A) None Seen 06/19/2024 11:43 AM ROLLER MAN [facility] Reactive Lymphocytes Present(A) None Seen 06/19/2024 11:43 AM ROLLER MAN [facility] Sickle Cells Moderate(A) None Seen 06/19/2024 11:43 AM ROLLER MAN [facility] Smudge Cells Present(A) None Seen 06/19/2024 11:43 AM ROLLER MAN [facility] Target Cells Moderate(A) None Seen 06/19/2024 11:43 AM ROLLER MAN [facility] Blood CENTRAL VENOUS CATHETER / Unknown VAD(CVC, PICC) / Unknown 06/19/2024 9:30 AM ROLLER MAN 06/19/2024 9:42 AM ROLLER MAN Rl Elias MD LAB - BLOOD ORDER SYD Final Result [facility] [place] [facility] [address] [facility], [address] [place] [address] * (ABNORMAL) CBC with platelets and differential (06/19/2024 9:30 AM ROLLER MAN) WBC Count 9.9 4.0 - 11.0 10e3/uL 06/19/2024 11:43 AM ROLLER MAN [facility] RBC Count 2.55(L) 3.80 - 5.20 10e6/uL 06/19/2024 11:43 AM RO[facility] MAN [facility] Hemoglobin 8.1(L) 11.7 - 15.7 g/dL 06/19/2024 11:43 AM ROLLER MAN [facility] Hematocrit 24.0(L) 35.0 - 47.0 % 06/19/2024 11:43 AM ROLLER MAN [facility] MCV 94 78 - 100 fL 06/19/2024 11:43 AM ROLLER MAN [facility] MCH 31.8 26.5 - 33.0 pg 06/19/2024 11:43 AM ROLLER MAN [facility] MCHC 33.8 31.5 - 36.5 g/dL 06/19/2024 11:43 AM ROLLER MAN [facility] RDW 18.4(H) 10.0 - 15.0 % 06/19/2024 11:43 AM ROLLER MAN [facility] Platelet Count 471(H) 150 - 450 10e3/uL 06/19/2024 11:43 AM ROLL[facility] MAN [facility] % Neutrophils 62 % 06/19/2024 11:43 AM ROLLER MAN [facility] % Lymphocytes 28 % 06/19/2024 11:43 AM ROLLER MAN [facility] % Monocytes 6 % 06/19/2024 11:43 AM ROLLER MAN [facility] % Eosinophils 3 % 06/19/2024 11:43 AM ROLLER MAN [facility] % Basophils 1 % 06/19/2024 11:43 AM ROLLER MAN [facility] % Immature Granulocytes 1 % 06/19/2024 11:43 AM ROLLER MAN [facility] NRBCs per 100 WBC 4(H) <1 /100 025 11:43 AM ROLLER MAN [facility] Absolute Neutrophils 6.1 1.6 - 8.3 10e3/uL 06/19/2024 11:43 AM ROLLER MAN [facility] Absolute Lymphocytes 2.7 0.8 - 5.3 10e3/uL 06/19/2024 11:43 AM ROLLER MAN [facility] Absolute Monocytes 0.6 0.0 - 1.3 10e3/uL 06/19/2024 11:43 AM ROLLER MAN [facility] Absolute Eosinophils 0.3 0.0 - 0.7 10e3/uL 06/19/2024 11:43 AM ROLLER MAN [facility] Absolute Basophils 0.1 0.0 - 0.2 10e3/uL 06/19/2024 11:43 AM ROLLER MAN [facility] Absolute Immature Granulocytes 0.1 <=0.4 10e3/uL 06/19/2024 11:43 AM ROLLER MAN [facility] Absolute NRBCs 0.4 10e3/uL 06/19/2024 11:43 AM ROLLER MAN [facility] Blood CENTRAL VENOUS CATHETER / Unknown VAD(CVC, PICC) / Unknown 06/19/2024 9:30 AM ROLLER MAN 06/19/2024 9:42 AM ROLLER MAN Rl Elias MD LAB - BLOOD ORDER SYD Final Result [facility] [place] [facility] [address] [facility], [address] [place] [address] * (ABNORMAL) Reticulocyte count (06/19/2024 9:30 AM ROLLER MAN) [facility] % Reticulocyte 9.2(H) 0.5 - 2.0 % 06/19/2024 9:48 AM ROLLER MAN [facility] Absolute Reticulocyte 0.234(H) 0.025 - 0.095 10e6/uL 06/19/2024 9:48 AM ROLLER MAN [facility] Blood CENTRAL VENOUS CATHETER / Unknown VAD(CVC, PICC) / Unknown 06/19/2024 9:30 AM ROLLER MAN 06/19/2024 9:42 AM ROLLER MAN Rl Elias MD LAB - BLOOD ORDER SYD Final Result [facility] [place] [facility] [address] [facility], [address] [place] [address] * (ABNORMAL) Comprehensive metabolic panel (06/19/2024 9:30 AM ROLLER MAN) Sodium 135 135 - 145 mmol/L 06/19/2024 10:13 AM ROLLER MAN [facility] Potassium 4.4 3.4 - 5.3 mmol/L 06/19/2024 10:13 AM ROLLER MAN [facility] Carbon Dioxide (CO2) 21(L) 22 - 29 mmol/L 06/19/2024 10:13 AM RO[facility] MAN [facility] Anion Gap 9 7 - 15 mmol/L 06/19/2024 10:13 AM ROLLER MAN [facility] Urea Nitrogen 12.3 6.0 - 20.0 mg/dL 06/19/2024 10:13 AM ROLLER MAN [facility] Creatinine 0.68 0.51 - 0.95 mg/dL 06/19/2024 10:13 AM ROLLER MAN [facility] GFR Estimate >90 >60 mL/min/1.7 3m2 06/19/2024 10:13 AM ROLLER MAN [facility] Comment:eGFR calculated us2020 CKD-EPI equation. Calcium 8.9 8.8 - 10.4 mg/dL 06/19/2024 10:13 AM ROLLER MAN [facility] Chloride 105 98 - 107 mmol/L 06/19/2024 10:13 AM ROLLER MAN [facility] Glucose 100(H) 70 - 99 mg/dL 06/19/2024 10:13 AM ROLLER MAN [facility] Alkaline Phosphatase 94 40 - 150 U/L 06/19/2024 10:13 AM ROLLER MAN [facility] AST 54(H) 0 - 45 U/L 06/19/2024 10:13 AM ROLLER MAN [facility] ALT 31 0 - 50 U/L 06/19/2024 10:13 AM ROLLER MAN [facility] Protein Total 7.1 6.4 - 8.3 g/dL 06/19/2024 10:13 AM ROLLER MAN [facility] Albumin 3.9 3.5 - 5.2 g/dL 06/19/2024 10:13 AM ROLL[facility] MAN [facility] Bilirubin Total 1.5(H) <=1.2 mg/dL 06/19/2024 10:13 AM RO[facility] MAN [facility] Blood CENTRAL VENOUS CATHETER / Unknown VAD(CVC, PICC) / Unknown 06/19/2024 9:30 AM ROLLER MAN 06/19/2024 9:41 AM ROLLER MAN Rl Elias MD LAB - BLOOD ORDER SYD Final Result [facility] [place] [facility] [address] [facility], [address] * (ABNORMAL) Lactate Dehydrogenase (06/19/2024 9:30 AM ROLLER MAN) Lactate Dehydrogenase 507(H) 0 - 250 U/L 06/19/2024 10:13 AM ROLLER MAN [facility] Blood CENTRAL VENOUS CATHETER / Unknown VAD(CVC, PICC) / Unknown 06/19/2024 9:30 AM ROLLER MAN 06/19/2024 9:41 AM ROLLER MAN Rl Elias MD LAB - BLOOD ORDER SYD Final Result [facility] [place] [facility] [address] [facility], [address] * (ABNORMAL) Platelet count (06/19/2024 12:17 AM ROLLER MAN) Platelet Count 467(H) 150 - 450 10e3/uL 06/19/2024 12:44 AM ROLLER MAN [facility] Blood BLOOD SPECIMEN / Unknown Venipuncture / Unknown 06/19/2024 12:17 AM ROLLER MAN 06/19/2024 12:26 AM ROLLER MAN Laquita Kelley MD LAB - BLOOD ORDERABLES Final Re sult [facility] [place] [facility] [address] [facility], [address] * Creatinine (06/19/2024 12:17 AM ROLLER MAN) Creatinine 0.72 0.51 - 0.95 mg/dL 06/19/2024 12:51 AM ROLLER MAN [facility] GFR Estimate >90 >60 mL/min/1.7 3m2 06/19/2024 12:51 AM RO[facility] MAN [facility] Comment:eGFR calculated usin 2020 CKD-EPI equation. Blood BLOOD SPECIMEN / Unknown Venipuncture / Unknown 06/19/2024 12:17 AM ROLLER MAN 06/19/2024 12:26 AM ROLLER MAN Laquita Kelley MD LAB - BLOOD ORDERABLES Final Re sult Performing Organization Address City/[facility]/ZIP Co de Phone Number [facility] [place] [facility] [address] [facility], [address] * (ABNORMAL) Manual Differential (06/18/2024 8:24 AM ROLLER MAN) % Neutrophils 52 % 06/18/2024 9:35 AM ROLLER MAN [facility] % Lymphocytes 39 % 06/18/2024 9:35 AM ROLLER MAN [facility] % Monocytes 7 % 06/18/2024 9:35 AM RO[facility]ER MAN [facility] % Eosinophils 3 % 06/18/2024 9:35 AM ROLLER MAN [facility] % Basophils 0 % 06/18/2024 9:35 AM ROLLER MAN [facility] NRBCs per 100 WBC 13(H) <=0 % 06/18/2024 9:35 AM ROLLER MAN [facility] Absolute Neutrophils 5.6 1.6 - 8.3 10e3/uL 06/18/2024 9:35 AM ROLLER MAN [facility] Absolute Lymphocytes 4.2 0.8 - 5.3 10e3/uL 06/18/2024 9:35 AM ROLLER MAN [facility] Absolute Monocytes 0.7 0.0 - 1.3 10e3/uL 06/18/2024 9:35 AM ROLLER MAN [facility] Absolute Eosinophils 0.3 0.0 - 0.7 10e3/uL 06/18/2024 9:35 AM ROLLER MAN [facility] Absolute Basophils 0.0 0.0 - 0.2 10e3/uL 06/18/2024 9:35 AM ROLLER MAN [facility] Absolute NRBCs 1.4(H) <=0.0 10e3/uL 025 9:35 AM ROLLER MAN [facility] RBC Morphology Confirmed RBC Indices 06/18/2024 9:35 AM ROLLER MAN [facility] Platelet Assessment Automated Count Confirmed. Platelet morphology is normal. Automated Count Confirmed. Platelet morphology is normal. 06/18/2024 9:35 AM ROLLER MAN [facility] RBC Fragments Slight(A) None Seen 06/18/2024 9:35 AM ROLLER MAN [facility] Polychromasia Slight(A) None Seen 06/18/2024 9:35 AM ROLLER MAN [facility] Sickle Cells Moderate(A) None Seen 06/18/2024 9:35 AM ROLLER MAN [facility] Blood BLOOD SPECIMEN / Unknown Venipuncture / Unknown 06/18/2024 8:24 AM ROLLER MAN 06/18/2024 8:32 AM ROLLER MAN us Rl Elias MD LAB - BLOOD ORDER SYD Final Result [facility] [place] [facility] [address] [facility], [address] [place] [address], [facility] * (ABNORMAL) CBC with platelets and differential (06/18/2024 8:24 AM ROLLER MAN) WBC Count 10.8 4.0 - 11.0 10e3/uL 06/18/2024 9:24 AM ROLLER MAN [facility] RBC Count 2.51(L) 3.80 - 5.20 10e6/uL 06/18/2024 9:24 AM ROLLER MAN [facility] Hemoglobin 8.1(L) 11.7 - 15.7 g/dL 06/18/2024 9:24 AM ROLLER MAN [facility] Hematocrit 23.1(L) 35.0 - 47.0 % 06/18/2024 9:24 AM ROLLER MAN [facility] MCV 92 78 - 100 fL 06/18/2024 9:24 AM ROLLER MAN [facility] MCH 32.3 26.5 - 33.0 pg 06/18/2024 9:24 AM ROLLER MAN [facility] MCHC 35.1 31.5 - 36.5 g/dL 06/18/2024 9:24 AM ROLLER MAN [facility] RDW 18.7(H) 10.0 - 15.0 % 06/18/2024 9:24 AM ROLLER MAN [facility] Platelet Count 452(H) 150 - 450 10e3/uL 06/18/2024 9:24 AM ROLLER MAN [facility] Blood BLOOD SPECIMEN / Unknown Venipuncture / Unknown 06/18/2024 8:24 AM ROLLER MAN 06/18/2024 8:32 AM ROLLER MAN Rl Elias MD LAB - BLOOD ORDER SYD Final Result [facility] [place] [facility] [address] [facility], [address] [id number] * (ABNORMAL) Reticulocyte count (06/18/2024 8:24 AM ROLLER MAN) [facility] % Reticulocyte 10.0(H) 0.5 - 2.0 % 06/18/2024 8:38 AM ROLLER MAN [facility] Absolute Reticulocyte 0.250(H) 0.025 - 0.095 10e6/uL 06/18/2024 8:38 AM ROLLER MAN [facility] Blood BLOOD SPECIMEN / Unknown Venipuncture / Unknown 06/18/2024 8:24 AM ROLLER MAN 06/18/2024 8:32 AM ROLLER MAN Rl Elias MD LAB - BLOOD ORDER SYD Final Result [facility] [place] [facility] [address] [facility], [address] [place], [place] [phone] * (ABNORMAL) Comprehensive metabolic panel (06/18/2024 8:24 AM ROLLER MAN) Sodium 133(L) 135 - 145 mmol/L 06/18/2024 9:02 AM ROLLER MAN [facility] Potassium 4.3 3.4 - 5.3 mmol/L 06/18/2024 9:02 AM ROLLER MAN [facility] Carbon Dioxide (CO2) 21(L) 22 - 29 mmol/L 06/18/2024 9:02 AM ROLLER MAN [facility] Anion Gap 7 7 - 15 mmol/L 06/18/2024 9:02 AM ROLLER MAN [facility] Urea Nitrogen 9.2 6.0 - 20.0 mg/dL 06/18/2024 9:02 AM ROLLER MAN [facility] Creatinine 0.65 0.51 - 0.95 mg/dL 06/18/2024 9:02 AM ROLLER MAN [facility] GFR Estimate >90 >60 mL/min/1.7 3m2 06/18/2024 9:02 AM ROLLER MAN [facility] Comment:eGFR calculated us2020 CKD-EPI equation. Calcium 8.7(L) 8.8 - 10.4 mg/dL 06/18/2024 9:02 AM ROLLER MAN [facility] Chloride 105 98 - 107 mmol/L 06/18/2024 9:02 AM ROLLER MAN [facility] Glucose 92 70 - 99 mg/dL 06/18/2024 9:02 AM ROLLER MAN [facility] Alkaline Phosphatase 86 40 - 150 U/L 06/18/2024 9:02 AM ROLLER MAN [facility] AST 45 0 - 45 U/L 06/18/2024 9:02 AM ROLLER MAN [facility] ALT 27 0 - 50 U/L 06/18/2024 9:02 AM ROLLER MAN [facility] Protein Total 7.0 6.4 - 8.3 g/dL 06/18/2024 9:02 AM ROLLER MAN [facility] Albumin 3.9 3.5 - 5.2 g/dL 06/18/2024 9:02 AM ROLLER MAN [facility] Bilirubin Total 1.4(H) <=1.2 mg/dL 06/18/2024 9:02 AM ROLLER MAN [facility] Blood BLOOD SPECIMEN / Unknown Venipuncture / Unknown 06/18/2024 8:24 AM ROLLER MAN 06/18/2024 8:32 AM ROLLER MAN us Rl Elias MD LAB - BLOOD ORDER SYD Final Result LABORATORY [facility] [address] [facility], [address] [phone] * (ABNORMAL) Lactate Dehydrogenase (06/18/2024 8:24 AM ROLLER MAN) Lactate Dehydrogenase 491(H) 0 - 250 U/L 06/18/2024 9:02 AM ROLLER MAN [facility] Blood BLOOD SPECIMEN / Unknown Venipuncture / Unknown 06/18/2024 8:24 AM ROLLER MAN 06/18/2024 8:32 AM ROLLER MAN Rl Elias MD LAB - BLOOD ORDER SYD Final Result Performing Organization Address City/[facility] Co de Phone Number LABORATORY [facility] [address] [facility], [address] [phone] * Transfuse red blood cells (unit), Sickle Cell (Hgb S) Negative (06/17/2024 2:33 PM ROLLER MAN) us Drake Nina MD BLOOD TRANSFUSION ORDERABLES Final Result * Transfuse red blood cells (unit), 1 Units, Sickle Cell (Hgb S) Negative (06/17/2024 2:33 PM ROLLER MAN) us Drake Nina MD BLOOD TRANSFUSION ORDERABLES Final Result * (ABNORMAL) UA with Microscopic reflex to Culture (06/17/2024 1:11 PM ROLLER MAN) Color Urine Light Yellow Colorless, Straw, Light Yellow, Yellow 06/17/2024 1:48 PM ROLLER MAN [facility] Appearance Urine Clear Clear 06/17/19 25 1:48 PM ROLLER MAN [facility] Glucose Urine Negative Negative mg/dL 06/17/2024 1:48 PM ROLLER MAN [facility] Bilirubin Urine Negative Negative 5 1:48 PM ROLLER MAN [facility] Ketones Urine Negative Negative mg/dL 06/17/2024 1:48 PM ROLLER MAN [facility] Specific Daisy Urine 1.009 1.003 - 1.035 06/17/2024 1:48 PM ROLLER MAN [facility] Blood Urine Trace(A) Negative 06/17/2024 1:48 PM ROLLER MAN [facility] pH Urine 6.5 5.0 - 7.0 06/17/2024 1:48 PM ROLLER MAN [facility] Protein Albumin Urine Negative Negative mg/dL 06/17/2024 1:48 PM ROLLER MAN [facility] Urobilinogen Urine Normal Normal, 2.0 mg/dL 06/17/2024 1:48 PM ROLLER MAN [facility] Nitrite Urine Negative Negative 06/17/2024 1:48 PM ROLLER MAN [facility] Leukocyte Esterase Urine Small(A) Negative 06/17/2024 1:48 PM ROLLER MAN [facility] RBC Urine <1 <=2 /HPF 06/17/2024 1:48 PM ROLLER MAN [facility] WBC Urine <1 <=5 /HPF 06/17/2024 1:48 PM ROLLER MAN [facility] Squamous Epithelials Urine 3(H) <=1 /HPF 06/17/2024 1:48 PM ROLLER MAN [facility] Urine URINE SPECIMEN OBTAINED BY CLEAN CATCH PROCEDURE / Unknown Non-blood Collection / Unknown 06/17/2024 1:11 PM ROLLER MAN 06/17/2024 1:38 PM ROLLER MAN Narrative [facility] - 06/17/2024 1:48 PM ROLLER MAN Urine Culture not indicated Rl Elias MD LAB - URINE ORDER SYD Final Result [facility] [place] [facility] [address] [facility], [address] [place] [phone] * Prepare red blood cells (unit) (06/17/2024 9:12 AM ROLLER MAN) Blood Component Type Red Blood Cells UU BLOOD BANK Product Code [id number] UU BLOO D BANK Unit Status Transfused UU BLOO D BANK Unit Number [id number] UU B LOOD BANK CROSSMATCH COMPATIBLE UU BLOOD BANK CODING SYSTEM [id number] UU BLO OD BANK ISSUE DATE AND TIME [id number] UU BLOOD BANK UNIT ABO/RH A+ UU BLOOD BANK UNIT TYPE ISBT 6200 UU BL OOD BANK 06/17/2024 9:12 AM ROLLER MAN us Drake Nina MD BLOOD BANK PRODUCT ORDERABLES Final Result BLOOD BANK [address] [place] [address] * (ABNORMAL) Transferrin (06/17/2024 6:16 AM ROLLER MAN) Transferrin 100.0(L) 200.0 - 360.0 mg/dL 06/17/2024 9:36 AM ROLLER MAN [facility] Blood VENOUS LINE / Unknown IVAD (Port) / Unknown 06/17/2024 6:16 AM ROLLER MAN 06/17/2024 6:27 AM ROLLER MAN us Drake Nina MD LAB - BLOOD ORDERABLES Final Result U LABORATORY [facility] [place] [facility] [address] [facility], [address] [place], [place] [phone] * Iron and iron binding capacity (06/17/2024 6:16 AM ROLLER MAN) Iron 123 37 - 145 ug/dL 06/17/2024 10:02 AM ROLLER MAN [facility] Iron Binding Capacity 06/17/2024 10:02 AM ROLLER MAN [facility] Comment:Unable to calculate: UIBC or Iron value is outside detectable level. Iron Sat Index 06/17/2024 10:02 AM ROLLER MAN [facility] Comment:Unable to calculate: UIBC or Iron value is outside detectable level. Blood VENOUS LINE / Unknown IVAD (Port) / Unknown 06/17/2024 6:16 AM ROLLER MAN 06/17/2024 6:27 AM ROLLER MAN us Drake Nina MD LAB - BLOOD ORDERABLES Final Result U LABORATORY [facility] [place] [facility] [address] [facility], [address] [place] [address] * (ABNORMAL) CBC with platelets (06/17/2024 6:16 AM ROLLER MAN) Pathologist [facility] WBC Count 14.6(H) 4.0 - 11.0 10e3/uL 06/17/2024 6:38 AM ROLLER MAN [facility] RBC Count 1.97(L) 3.80 - 5.20 10e6/uL 06/17/2024 6:38 AM ROLLER MAN [facility] Hemoglobin 6.3(LL) 11.7 - 15.7 g/dL 06/17/2024 6:38 AM ROLLER MAN [facility] Hematocrit 17.9(L) 35.0 - 47.0 % 06/17/2024 6:38 AM ROLLER MAN [facility] MCV 91 78 - 100 fL 06/17/2024 6:38 AM ROLLER MAN [facility] MCH 32.0 26.5 - 33.0 pg 06/17/2024 6:38 AM [facility] MCHC 35.2 31.5 - 36.5 g/dL 06/17/2024 6:38 AM [facility] RDW 20.1(H) 10.0 - 15.0 % 06/17/2024 6:38 AM [facility] Platelet Count 468(H) 150 - 450 10e3/uL 06/17/2024 6:38 AM [facility] Blood VENOUS LINE / Unknown IVAD (Port) / Unknown 06/17/2024 6:16 AM [facility]ER MAN 06/17/2024 6:27 AM RO[facility] MAN us Laquita Kelley MD LAB - BLOOD ORDERABLES Final Re sult [facility] [place] [facility] [address] [facility], [address] [place] [id number] * (ABNORMAL) Basic metabolic panel (06/17/2024 6:16 AM ROLLER MAN) Pathologist [facility] Sodium 134(L) 135 - 145 mmol/L 06/17/2024 6:55 AM [facility] Potassium 4.6 3.4 - 5.3 mmol/L 06/17/2024 6:55 AM [facility] Chloride 105 98 - 107 mmol/L 06/17/2024 6:55 AM [facility] Carbon Dioxide (CO2) 20(L) 22 - 29 mmol/L 06/17/2024 6:55 AM [facility] Anion Gap 9 7 - 15 mmol/L 06/17/2024 6:55 AM [facility] Urea Nitrogen 16.1 6.0 - 20.0 mg/dL 06/17/2024 6:55 AM [facility] Creatinine 0.90 0.51 - 0.95 mg/dL 06/17/2024 6:55 AM [facility] GFR Estimate 88 >60 mL/min/1.7 3m2 06/17/2024 6:55 AM [facility] Comment:eGFR calculated usin 2020 CKD-EPI equation. Calcium 8.4(L) 8.8 - 10.4 mg/dL 06/17/2024 6:55 AM [facility] Glucose 95 70 - 99 mg/dL 06/17/2024 6:55 AM [facility] Blood VENOUS LINE / Unknown IVAD (Port) / Unknown 06/17/2024 6:16 AM ROLLER MAN 06/17/2024 6:27 AM RO[facility] MAN us Laquita Kelley MD LAB - BLOOD ORDERABLES Final Re sult [facility] [place] [facility] [address] [facility], [address] [place] [phone] * Troponin T, High Sensitivity (06/16/2024 9:33 PM ROLLER MAN) Troponin T, High Sensitivity 8 <=14 ng/L 06/16/2024 10:13 PM [facility] Comment: Either a High Sensitivity [...] IVAD (Port) / Unknown 06/16/2024 9:33 PM ROLLER MAN 06/16/2024 9:44 PM ROLL[facility] MAN us Varghesegiulia Schofield MD LAB - BLOOD ORDERABLE S Final Result LABORATORY [facility] [address] [facility], [address] [phone] * Chest XR, PA & LAT (06/16/2024 6:09 PM ROLLER MAN) Anatomical Region Laterality Modality Chest Digital Radiogra phy 06/16/2024 6:09 PM ROLLER MAN Impressions 06/16/2024 6:13 PM [facility] MAN IMPRESSION: Left chest port catheter in stable position. Stable position of right central venous catheter. No airspace opacity, pleural effusion or pneumothorax. Narrative 06/16/2024 6:13 PM ROLLER MAN EXAM: XR CHEST 2 VIEWS LOCATION: [facility] DATE: 06/16/2024 INDICATION: chest pain COMPARISON: 06/12/2024 Procedure Note Richar Haines MD - 06/16/2024 EXAM: XR CHEST 2 VIEWS LOCATION: [facility] DATE: 06/16/2024 INDICATION: chest pain COMPARISON: 06/12/2024 IMPRESSION: Left chest port catheter in stable position. Stable positionof right central venous catheter. No airspace opacity, pleural effusion orpneumothorax. us Abimael Schofield MD IMG DIAGNOSTIC IMAGIN G ORDERABLES Final Result * RBC and Platelet Morphology (06/16/2024 5:37 PM ROLLER MAN) Pathologist [facility] RBC Morphology Confirmed RBC Indices 06/16/2024 7:40 PM ROLLER MAN [facility] Platelet Assessment Automated Count Confirmed. Platelet morphology is normal. Automated Count Confirmed. Platelet morphology is normal. 06/16/2024 7:40 PM ROLLER MAN [facility] Blood BLOOD SPECIMEN / Unknown Venipuncture / Unknown 06/16/2024 5:37 PM ROLLER MAN 06/16/2024 5:[address] [facility] Sch[facility] MD LAB - BLOOD ORDERABLE S Final Result [facility] [place] [facility] [address] [facility], [address] [place] [address], [facility] * Adult Type and Screen (06/16/2024 5:37 PM ROLLER MAN) [facility] ABO/RH(D) A POS 06/16/2024 5:08 PM ROLLER MAN BLOOD BANK Antibody Screen Negative Negative 06/16/2024 5:08 PM ROLLER MAN BLOOD BANK Comment:Current antibody scr een is negative. Patient has a history of antibody(ies). A delay in compatible red blood cells may occur. SPECIMEN EXPIRATION DATE [id number] 06/16/2024 5:08 PM ROLLER MAN BLOOD BANK Blood BLOOD SPECIMEN / Unknown Venipuncture / Unknown 06/16/2024 5:37 PM ROLLER MAN 06/16/2024 5:46 PM ROLLER MAN Abimael Schofield MD LAB - BLOOD BANK TEST ORDER Final Result [facility] B[facility] [address] [place] [address] * (ABNORMAL) CBC with platelets and differential (06/16/2024 5:37 PM ROLLER MAN) [facility] WBC Count 21.0(H) 4.0 - 11.0 10e3/uL 06/16/2024 7:41 PM ROLLER MAN [facility] RBC Count 2.34(L) 3.80 - 5.20 10e6/uL 06/16/2024 7:41 PM ROLLER MAN [facility] Hemoglobin 7.4(L) 11.7 - 15.7 g/dL 06/16/2024 7:41 PM ROLLER MAN [facility] Hematocrit 21.7(L) 35.0 - 47.0 % 06/16/2024 7:41 PM ROLLER MAN [facility] MCV 93 78 - 100 fL 06/16/2024 7:41 PM ROLLER MAN [facility] MCH 31.6 26.5 - 33.0 pg 06/16/2024 7:41 PM ROLLER MAN [facility] MCHC 34.1 31.5 - 36.5 g/dL 06/16/2024 7:41 PM ROLLER MAN [facility] RDW 19.3(H) 10.0 - 15.0 % 06/16/2024 7:41 PM ROLLER MAN [facility] Platelet Count 551(H) 150 - 450 10e3/uL 06/16/2024 7:41 PM ROLLER MAN [facility] % Neutrophils 69 % 06/16/2024 7:41 PM ROLLER MAN [facility] % Lymphocytes 20 % 06/16/2024 7:41 PM ROLLER MAN [facility] % Monocytes 9 % 06/16/2024 7:41 PM ROLLER MAN [facility] % Eosinophils 0 % 06/16/2024 7:41 PM ROLLER MAN [facility] % Basophils 1 % 06/16/2024 7:41 PM ROLLER MAN [facility] % Immature Granulocytes 1 % 06/16/2024 7:41 PM ROLLER MAN [facility] NRBCs per 100 WBC 1(H) <1 /100 025 7:41 PM ROLLER MAN [facility] Absolute Neutrophils 14.5(H) 1.6 - 8.3 10e3/uL 06/16/2024 7:41 PM ROLLER MAN [facility] Absolute Lymphocytes 4.2 0.8 - 5.3 10e3/uL 06/16/2024 7:41 PM ROLLER MAN [facility] Absolute Monocytes 2.0(H) 0.0 - 1.3 10e3/uL 06/16/2024 7:41 PM ROLLER MAN [facility] Absolute Eosinophils 0.0 0.0 - 0.7 10e3/uL 06/16/2024 7:41 PM ROLLER MAN [facility] Absolute Basophils 0.2 0.0 - 0.2 10e3/uL 06/16/2024 7:41 PM ROLLER MAN [facility] Absolute Immature Granulocytes 0.1 <=0.4 10e3/uL 06/16/2024 7:41 PM ROLLER MAN [facility] Absolute NRBCs 0.3 10e3/uL 06/16/2024 7:41 PM ROLLER MAN [facility] Blood BLOOD SPECIMEN / Unknown Venipuncture / Unknown 06/16/2024 5:37 PM ROLLER MAN 06/16/2024 5:46 PM ROLLER MAN us Varghesegiulia Schofield MD LAB - BLOOD ORDERABLE S Final Result [facility] [place] [facility] [address] [facility], [address] * (ABNORMAL) Prolactin (06/16/2024 5:37 PM ROLLER MAN) Prolactin 55(H) 5 - 23 ng/mL 06/16/2024 6:24 PM ROLLER MAN [facility] Blood BLOOD SPECIMEN / Unknown Venipuncture / Unknown 06/16/2024 5:37 PM ROLLER MAN 06/16/2024 5:46 PM ROLLER MAN us Varghesegiulia Schofield MD LAB - BLOOD ORDERABLE S Final Result Performing Organization Address City/[facility]/ZIP Co de Phone Number [facility] Core Lab [address] [facility], [address] * Blood Culture Peripheral Blood (06/16/2024 5:37 PM ROLLER MAN) Culture No Growth 06/21/2024 6:47 PM ROLLER MAN [facility] Blood BLOOD SPECIMEN / Unknown Venipuncture / Unknown 06/16/2024 5:37 PM ROLLER MAN 06/16/2024 5:47 PM ROLLER MAN us Abimael Shcofield MD LAB - MICRO GENERAL O RDERABLES Final Result [facility]AT[facility] Inf. Diseases Diag. Lab [address] [facility], [address] [place] [address] * Troponin T, High Sensitivity (06/16/2024 5:37 PM ROLLER MAN) [facility] Troponin T, High Sensitivity 6 <=14 ng/L 06/16/2024 6:24 PM ROLLER MAN [facility] Comment: Either a High Sensitivity [...] Unknown Venipuncture / Unknown 06/16/2024 5:37 PM ROLLER MAN 06/16/2024 5:46 PM ROLLER MAN us Varghesegiulia Schofield MD LAB - BLOOD ORDERABLE S Final Result [facility] [place] [facility] [address] [facility], [address] [place] [address] * (ABNORMAL) Comprehensive metabolic panel (06/16/2024 5:37 PM ROLLER MAN) [facility] Sodium 135 135 - 145 mmol/L 06/16/2024 6:24 PM ROLLER MAN [facility] Potassium 4.2 3.4 - 5.3 mmol/L 06/16/2024 6:24 PM ROLLER MAN [facility] Carbon Dioxide (CO2) 18(L) 22 - 29 mmol/L 06/16/2024 6:24 PM ROLLER MAN [facility] Anion Gap 14 7 - 15 mmol/L 06/16/2024 6:24 PM ROLLER MAN [facility] Urea Nitrogen 17.3 6.0 - 20.0 mg/dL 06/16/2024 6:24 PM ROLLER MAN [facility] Creatinine 0.92 0.51 - 0.95 mg/dL 06/16/2024 6:24 PM ROLLER MAN [facility] GFR Estimate 85 >60 mL/min/1.7 3m2 06/16/2024 6:24 PM ROLLER MAN [facility] Comment:eGFR calculated us2020 CKD-EPI equation. Calcium 9.5 8.8 - 10.4 mg/dL 06/16/2024 6:24 PM ROLLER MAN [facility] Chloride 103 98 - 107 mmol/L 06/16/2024 6:24 PM ROLLER MAN [facility] Glucose 122(H) 70 - 99 mg/dL 06/16/2024 6:24 PM ROLLER MAN [facility] Alkaline Phosphatase 105 40 - 150 U/L 06/16/2024 6:24 PM ROLLER MAN [facility] AST 49(H) 0 - 45 U/L 06/16/2024 6:24 PM ROLLER MAN [facility] ALT 32 0 - 50 U/L 06/16/2024 6:24 PM ROLLER MAN [facility] Protein Total 8.6(H) 6.4 - 8.3 g/dL 06/16/2024 6:24 PM ROLLER MAN [facility] Albumin 4.6 3.5 - 5.2 g/dL 06/16/2024 6:24 PM ROLLER MAN [facility] Bilirubin Total 2.0(H) <=1.2 mg/dL 06/16/2024 6:24 PM ROLLER MAN [facility] Blood BLOOD SPECIMEN / Unknown Venipuncture / Unknown 06/16/2024 5:37 PM ROLLER MAN 06/16/2024 5:46 PM ROLLER MAN us Varghesegiulia Schofield MD LAB - BLOOD ORDERABLE S Final Result [facility] [place] [facility] [address] [facility], [address] [place] [address] * EKG 12 lead (06/16/2024 4:55 PM ROLLER MAN) Systolic Blood Pressure mmHg RADIOLOGY RESULTS Diastolic Blood Pressure mmHg RADIOLOGY RESULTS Ventricular Rate 122 BPM RAD IOLOGY RESULTS Atrial Rate 122 BPM RADIOLOG Y RESULTS WV Interval 128 ms RADIOLOG Y RESULTS QRS Duration 74 ms RADIOLO GY RESULTS QT 314 ms RADIOLOGY RESULTS QTc 447 ms RADIOLOGY RESULTS P Joshua 63 degrees RADIOLOGY RESULTS R AXIS 83 degrees RADIOLOGY RESULTS T Joshua 29 degrees RADIOLOGY RESULTS Interpretation ECG Sinus tachycardia Otherwise normal ECG Unconfirmed report - interpretation of this ECG is computer generated - see medical record for final interpretation Confirmed by - EMERGENCY ROOM, PHYSICIAN ([id number]), primer expeditor and drier KARLA WILLIAMSON ([id number]) on 06/17/2024 6:56:59 AM RADIOLOGY RESULTS 06/16/2024 4:55 PM ROLLER MAN 06/17/2024 6:56 AM ROLLER MAN us Varghesegiulia Schofield MD ECG ORDERABLES Edite [...] days, Indications: pneumoniaIndications:pneumonia $Given 06/18/2024 8:40 PM ROLLER MAN 200 mg $Given 06/18/2024 12:05 PM ROLLER MAN 200 mg $Given 06/17/2024 9:25 PM ROLLER MAN 200 mg diclofenac (VOLTAREN) 1 % topical gel 2 g 2 g, Topical, 4 TIMES DAILY, First dose on 06/17/24 at 1400, Apply to areas of pain. Use supplied dosing card to measure dose. diphenhydrAMINE (BENADRYL) capsule 25 mg 25 mg, Oral, EVERY 6 HOURS PRN, itching, Starting on Wed06/16/24 at 6 $Given 06/19/2024 12:46 PM ROLLER MAN 25 mg diphenhydrAMINE (BENADRYL) injection 25 mg 25 mg, Intravenous, EVERY 6 HOURS PRN, itching, Starting on Wed06/16/24 at 6 $Given 06/20/2024 8:36 AM ROLLER MAN 25 mg $Given 06/20/2024 2:08 AM ROLLER MAN 25 mg $Given 06/19/2024 8:21 PM ROLLER MAN 25 mg enoxaparin ANTICOAGULANT (LOVENOX) injection 40 mg 40 mg, Subcutaneous, EVERY 24 HOURS, First dose on Wed06/16/24 at 2100, Contact provider if platelet count drops by 50% or more after enoxaparin initiation OR if platelet count falls below 50 x 10e3/uL $Given 06/19/2024 8:29 PM ROLLER MAN 40 mg $Given 06/18/2024 8:01 PM ROLLER MAN 40 mg $Given 06/17/2024 9:32 PM ROLLER MAN 40 mg FLUoxetine (PROzac) capsule 10 mg 10 mg, Oral, DAILY, First dose on Wed06/17/24 at 0800 $Given 06/20/2024 7:54 AM ROLLER MAN 10 mg $Given 06/19/2024 8:54 AM ROLLER MAN 10 mg $Given 06/18/2024 9:54 AM ROLLER MAN 10 mg folic acid (FOLVITE) tablet 1 mg 1 mg, Oral, DAILY, First dose on Wed06/17/24 at 0800 $Given 06/20/2024 7:51 AM ROLLER MAN 1 mg $Given 06/19/2024 8:54 AM ROLLER MAN 1 mg $Given 06/18/2024 8:09 AM ROLLER MAN 1 mg heparin lock flush 10 unit/mL [...] each port lumen $Given 06/20/2024 10:55 AM ROLLER MAN 5 mLs hydromorphone (DILAUDID) injection 2 mg 2 mg, Intravenous, EVERY 1 HOUR PRN, moderate pain, Starting on Wed06/16/24 at 1708, For 3 doses $Given 06/16/2024 8:20 PM ROLLER MAN 2 mg $Given 06/16/2024 5:42 PM ROLLER MAN 2 mg hydromorphone (DILAUDID) injection 2 mg 2 mg, Intravenous, EVERY 3 HOURS, First dose on Wed06/16/24 at 2100, May use concomitant with non-opioid analgesics. $Given 06/16/2024 9:59 PM ROLLER MAN 2 mg hydromorphone (DILAUDID) injection 2 mg 2 mg, Intravenous, EVERY 2 HOURS, First dose (after last modification) on 06/17/24 at 0000, May use concomitant with non-opioid analgesics. $Given 06/20/2024 9:53 AM ROLLER MAN 2 mg $Given 06/20/2024 7:49 AM ROLLER MAN 2 mg $Given 06/20/2024 5:51 AM ROLLER MAN 2 mg hydroxyurea (HYDREA) capsule 1,000 mg 1,000 mg, Oral, 2 TIMES DAILY, First dose on Wed06/16/24 at 2100, Indications: Sickle cell anemia, Do not crush May require hepatic and/or renal dose or frequency adjustments. See reference link for guidelines.Indications:Sickle cell anemia $Given 06/20/2024 7:51 AM ROLLER MAN 1,000 mg $Given 06/19/2024 8:13 PM ROLLER MAN 1,000 mg $Given 06/19/2024 8:55 AM ROLLER MAN 1,000 mg lactated ringers infusion at 75 mL/hr, Intravenous, CONTINUOUS, Starting on Wed06/18/24 at 0845, Until Wed06/20/24 at 0815 Rate/Dose Verify 06/20/2024 8:00 AM ROLLER MAN 75 mL/hr $New Bag 06/19/2024 10:38 PM ROLLER MAN 75 mL/hr Rate/Dose Verify 06/19/2024 8:29 PM ROLLER MAN 75 mL/h r Lidocaine (LIDOCARE) 4 % [...] 06/16/24 at 1958 $Given 06/20/2024 2:08 AM ROLLER MAN 4 mg $Given 06/19/2024 8:15 PM ROLLER MAN 4 mg $Given 06/19/2024 12:46 PM ROLLER MAN 4 mg polyethylene glycol (MIRALAX) Packet 17 [...] each port lumen. $Given 06/20/2024 10:54 AM ROLLER MAN 10 mLs sodium chloride (PF) 0.9% PF flush 3 mL 3 mL, Intracatheter, EVERY 8 HOURS, First dose on Wed06/16/24 at 1710, to lock peripheral IV dormant line $Given 06/20/2024 12:24 AM ROLLER MAN 3 mLs $Given 06/18/2024 6:22 PM ROLLER MAN 3 mLs $Given 06/17/2024 7:34 AM ROLLER MAN 3 mLs sodium chloride (PF) 0.9% PF flush 3 mL 3 mL, Intracatheter, EVERY 1 MIN PRN, line flush, other, to ensure patency or to lock dormant line, Starting on Wed06/16/24 at 1706 sodium chloride (PF) 0.9% PF flush 3 mL 3 mL, Intracatheter, EVERY 8 HOURS, First dose on Wed06/16/24 at 2100, to lock peripheral IV dormant line $Given 06/20/2024 4:41 AM ROLLER MAN 3 mLs $Given 06/19/2024 12:56 PM ROLLER MAN 3 mLs $Given 06/18/2024 12:07 PM ROLLER MAN 3 mLs sodium chloride (PF) 0.9% PF flush 3 mL 3 mL, Intracatheter, EVERY 1 MIN PRN, line flush, other, to ensure patency or to lock dormant line, Starting on Wed06/16/24 at 2058 $Given 06/20/2024 5:5 2 AM ROLLER MAN 3 mLs $Given 06/20/2024 2:59 AM ROLLER MAN 3 mLs $Given 06/20/2024 2:07 AM ROLLER MAN 3 mLs sodium chloride 0.9 % infusion at 75 mL/hr, Intravenous, CONTINUOUS, Starting on Wed06/16/24 at 1710, Until 06/18/24 at 0843 Rate/Dose Verify 06/18/2024 8:07 AM ROLLER MAN 75 mL/hr $New Bag 06/17/2024 9:42 PM ROLLER MAN 75 mL/hr $New Bag 06/17/2024 4:05 PM ROLLER MAN 75 mL/hr sodium chloride 0.9% BOLUS 500 mL Intravenous, 500 mL, ONCE, at 500 mL/hr, Administer over 1 Hours, On Wed06/16/24 at 1710, For 1 dose $New Bag 06/16/2024 5:51 PM ROLLER MAN 500 mLs 500 mL/hr documented in this encounter Active and Recently Administered Medications Times are shown in ROLLER MAN. Scheduled Medication Order 06/18/2024 06/19/2024 06/20/2024 cefpodoxime [...] - Provider: Rene Morocho RN - Comment: bond writer used scheudled dose instead of PRN [...] Gannon, RN)1246 ($Given - Provider: Kiki Caal, SFOIA)2015 ($Given - Provider: Sarai Shrestha RN) 0208 [...] stools. documented in this encounter Care Teams Staff Sonographer Relationship Specialty Start Date End Date No Ref-Primary, Physician PCP - General 03/15/24 06/17/24 Veronica Joseph MD [address] [place] [address] PCP - General Family Medicine 06/18/24 Mor Ramsey Medical Student 04/03/24 Case Samuel MD [address] [place] [address] [address], [address] [place] [address] Assigned Pediatric Specialist Provider 05/18/24 Juhi Benson, RN Specialty Block Stacker Hematology & Oncology 05/29/24 documented as of this encounter
--- OUTSIDE RECORDS SUMMARY | 2024-06-24 20:11 | XMS_ITS | Encounter Summary ---
Author Organization [facility] Address [address] [place] [address] Care Team Providers Care Business Controller Name Role Phone No Ref-Primary, Physician Primary Care Provider Mor Ramsey Unavailable Unavailable Case Samuel MD Unavailable [phone] Juhi Benson RN Unavailable Unavailable Reason for Visit * Reason Comments Sickle Cell Pain Crisis Encounter Details Date Type Department Care Team (Late st Contact Info) Description 06/11/2024 9:02 PM TELEVISION ENGINEERING TEACHER - 06/12/2024 1:57 AM [facility] Emergency [facility] Emergency Room [address] [place] [address] Iliana Weber MD [facility] [address] [place] [address] Sickle cell pain crisis (H) Discharge Disposition: [...] on file Legal Sex Female 8:25 AM TELEVISION ENGINEERING TEACHER Gender Identity Not on file Sexual Orientation Not on file documented as of this encounter Last Filed Vital Signs Vital Sign Reading Time Taken Comments Blood Pressure 118/75 06/12/2024 12:45 AM TELEVISION ENGINEERING TEACHER Pulse 91 06/12/2024 12:45 AM TELEVISION ENGINEERING TEACHER Temperature 36.5 C (97.7 F) 06/11/2024 8:58 PM TELEVISION ENGINEERING TEACHER Respiratory Rate 19 06/12/2024 12:45 AM TELEVISION ENGINEERING TEACHER Oxygen Saturation 95% 06/12/2024 12:45 AM TELEVISION ENGINEERING TEACHER Inhaled Oxygen Concentration - - Weight 52.2 kg (115 lb) 06/11/2024 8:58 PM TELEVISION ENGINEERING TEACHER Height 154.9 cm (5' 1) 06/11/2024 8:58 PM TELEVISION ENGINEERING TEACHER Body Mass Index 21.73 06/11/2024 8:58 PM TELEVISION ENGINEERING TEACHER documented in this encounter Discharge Instructions * Attachments The following attachments cannot be sent through Care Everywhere. * Sickle Cell Crisis (Somali) documented in this encounter Medications at Time [...] 05/01/2024 naloxone (NARCAN) 4 MG/0.1ML nasal spray Naturita 1 spray (4 mg) into one nostril [...] CST Gave handoff report to Niki BLACK VISION ENGINEERING TEACHER * Shane Santos RN - 06/11/2024 10:00 PM CST Pt drove here as seen on security footage. Notified Dr Weber, and ok to proceed with treatment plan as ordered. Pt was advised to arrange a ride home. VISION ENGINEERING TEACHER * Iliana Weber MD - 06/11/2024 9:08 [...] get infusion therapies frequently. Last seen at [facility] 06/11/2024 early this morning about midnight. [...] other provider:Did you involve another provider (client service consultant, MH, pharmacy, etc.)?: No Discharge. 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 Recently moved to [place] from [place], [place]. She is 1 of 9 [...] Social Connections: Socially Integrated (03/28/2024) Received from [facility] [employer] [facility] Social Connections Do you often feel lonely [...] dry. Normal skin color. Neuro: Speech clear. fruit thinner machine operator grossly intact. Moves all extremities appropriately. Strength [...] Given normal axis. QTcis 453, QRS 78, NV 158. As compared to previous EKG from June 05, 2024 T wave slightly flattened in 3 and aVF but otherwise no significant change. I have independently reviewed and interpreted the EKG(s) documented above. Iliana Weber M.D. Emergency Medicine [facility] EMERGENCY ROOM [address] [facility] [address] Dept: [phone] Iliana Weber MD 06/12/24 0149 VISION ENGINEERING TEACHER * Jennifer Muse RN - 06/11/2024 8:56 [...] WDL WDL Cognitive/Neuro/Behavioral WDL Cognitive/Neuro/Behavioral WDL WDL VISION ENGINEERING TEACHER documented in this encounter Plan of Treatment Not on file documented as of this encounter Goals Goal Patient Goal Type Associated Problems Recent Progress Patient-Stated? Author Pain Management General On track( 025 12:40 PM TELEVISION ENGINEERING TEACHER) Yes Juhi eBnson, RN Note: Goal Statement: I will establish [...] WITH MUSE SJN,SJO,WWH STAT 06/11/2024 9:04 PM TELEVISION ENGINEERING TEACHER documented in this encounter Results * ECG 12-LEAD WITH MUSE (LHE) (06/11/2024 9:04 PM TELEVISION ENGINEERING TEACHER) Systolic Blood Pressure mmHg RADIOLOGY RESULTS Diastolic Blood Pressure mmHg RADIOLOGY RESULTS Ventricular Rate 102 BPM RAD IOLOGY RESULTS Atrial Rate 102 BPM RADIOLOG Y RESULTS NV Interval 158 ms RADIOLOG Y RESULTS QRS Duration 78 ms RADIOLO GY RESULTS QT 348 ms RADIOLOGY RESULTS QTc 453 ms RADIOLOGY RESULTS P Valencia 39 degrees RADIOLOGY RESULTS R AXIS 66 degrees RADIOLOGY RESULTS T Valencia 33 degrees RADIOLOGY RESULTS Interpretation ECG Sinus tachycardia Nonspecific T wave abnormality Abnormal ECG When compared with ECG of 05-Jun-2024 11:40, No significant change was found Confirmed by SEE ED PROVIDER NOTE FOR, ECG INTERPRETATION ([id number]), primer expeditor and drier SELMA GARRISON ([id number]) on 06/11/2024 9:05:27 PM RADIOLOGY RESULTS 06/11/2024 9:04 PM TELEVISION ENGINEERING TEACHER 06/11/2024 9:05 PM TELEVISION ENGINEERING TEACHER us Deshawn Arredondo MD ECG ORDERABLES Edited [...] For 1 dose $Given 06/12/2024 1:32 AM TELEVISION ENGINEERING TEACHER 25 mg heparin lock flush 100 unit/mL [...] each port lumen $Given 06/12/2024 1:47 AM TELEVISION ENGINEERING TEACHER 5 mLs HYDROmorphone (DILAUDID) injection 2 mg 2 mg, Intravenous, EVERY 1 HOUR PRN, moderate pain, Starting on Wed06/11/24 at 2103, For 3 doses $Given 06/12/2024 12:23 AM TELEVISION ENGINEERING TEACHER 2 mg $Given 06/11/2024 11:16 PM TELEVISION ENGINEERING TEACHER 2 mg $Given 06/11/2024 10:09 PM TELEVISION ENGINEERING TEACHER 2 mg lactated ringers BOLUS 1,000 mL Intravenous, 1,000 mL, ONCE, at 500 mL/hr, Administer over 2 Hours, On 06/11/24 at 2130, For 1 dose $New Bag 06/11/2024 10:03 PM TELEVISION ENGINEERING TEACHER 1,000 mLs 500 mL/hr ondansetron (ZOFRAN) injection 8 mg 8 mg, Intravenous, ONCE, Administer over 2-5 Minutes, On 06/11/24 at 2130, For 1 dose $Given 06/11/2024 10:08 PM TELEVISION ENGINEERING TEACHER 8 mg sodium chloride (PF) 0.9% PF [...] Recently Administered Medications Times are shown in TELEVISION ENGINEERING TEACHER. Scheduled Medication Order 06/10/2024 06/11/2024 06/12/2024 diphenhydrAMINE [...] draw. documented in this encounter Care Teams Business Controller Relationship Specialty Start Date End Date No Ref-Primary, Physician PCP - General 03/15/24 06/17/24 Mor Ramsey Medical Student 04/03/24 Case Samuel MD [address] [place] [address] [address], [address] [place] [address] Assigned Pediatric Specialist Provider 05/18/24 Juhi Benson, RN Specialty All Source Intelligence Technician Hematology & Oncology 05/29/24 documented as of this encounter
--- OUTSIDE RECORDS SUMMARY | 2024-06-24 20:11 | XMS_ITS | Encounter Summary ---
Author Organization [facility] Address [address] [place] [address]. [place] [address] Care Team Providers Care Animation Director Name Role Phone Roxy Mor Unavailable Unavailable Case Samuel MD Unavailable [phone] Juhi Benson RN Unavailable Unavailable Veronica Joseph MD Primary Care Provider [phone] Encounter Details Date Type Department Care Team (Latest Contact Info) Description 06/22/2024 Travel Social History Tobacco Use Types Packs/Day [...] on file Legal Sex Female 8:25 AM ORNAMENTAL PAINTER Gender Identity Not on file Sexual Orientation Not on file documented as of this encounter Plan of Treatment Not on file documented as of this encounter Goals Goal Patient Goal Type Associated Problems Recent Progress Patient-Stated? Author Pain Management General On track( 025 12:40 PM ORNAMENTAL PAINTER) Yes Juhi Benson RN Note: Goal [...] on filedocumented in this encounter Care Teams Animation Director Relationship Specialty Start Date End Date Veronica Joseph MD [address] [place] [address] PCP - General Family Medicine 06/18/24 Mor Ramsey Medical Student 04/03/24 Case Samuel MD [address] [place] [address] [address], [address] [place] [address] Assigned Pediatric Specialist Provider 05/18/24 Juhi Benson, RN Specialty Manager Brand Hematology & Oncology 05/29/24 documented as of this encounter
--- OUTSIDE RECORDS SUMMARY | 2024-06-24 20:11 | XMS_ITS ---
Author Organization [facility] Address [address] [place] [address] Care Team Providers Care Sausage Wrapper Name Role Phone Roxy Mor Unavailable Unavailable Case Samuel MD Unavailable [phone] Juhi Benson RN Unavailable Unavailable Veronica Joseph MD Primary Care Provider [phone] Transitional Care Management Status:Enrolled (Active) Start date:06/16/2024 Enrollment date:06/16/2024 Continued Care and Services Coordination
--- OUTSIDE RECORDS SUMMARY | 2024-06-24 20:11 | XMS_ITS | Encounter Summary ---
Author Organization [facility] Address [address] [place] [address]. [place] [address] Care Team Providers Care Under Cutting Machine Operator Name Role Phone No Ref-Primary, Physician Primary Care Provider Mor Ramsey Unavailable Unavailable Case Samuel MD Unavailable [phone] Juhi Benson RN Unavailable Unavailable Encounter Details [...] on file Legal Sex Female 8:25 AM [employer] INTER[employer] Gender Identity Not on file Sexual Orientation Not on file documented as of this encounter Plan of Treatment Not on file documented as of this encounter Goals Goal Patient Goal Type Associated Problems Recent Progress Patient-Stated? Author Pain Management General On track( 025 12:40 PM [employer] INTER[employer]IP) Yes Juhi Benson RN Note: Goal Statement: [...] on filedocumented in this encounter Care Teams Under Cutting Machine Operator Relationship Specialty Start Date End Date No Ref-Primary, Physician PCP - General 03/15/24 06/17/24 Mor Ramsey Medical Student 04/03/24 Case Samuel MD [address] [place] [address] [address], [address] [place] [address] Assigned Pediatric Specialist Provider 05/18/24 Juhi Benson RN Specialty Industrial Sales Representative Hematology & Oncology 05/29/24 documented as of this encounter
--- OUTSIDE RECORDS SUMMARY | 2024-06-24 20:11 | XMS_ITS | Encounter Summary ---
Author Organization [facility] Address [address] [place] [address]. [place] [address] Care Team Providers Care Rope Tow Operator Name Role Phone Royx Mor Unavailable Unavailable Case Samuel MD Unavailable [phone] Juhi Benson RN Unavailable Unavailable Veronica Joseph MD Primary Care Provider [phone] Encounter Details Date Type Department Care Team (Latest Contact Info) Description 06/23/2024 Travel Social History Tobacco Use Types Packs/Day [...] in an overnight fci, or couch-surfing.) Yes 06/20/2024 Are you worried [...] on file Legal Sex Female 8:25 AM CATTLE TRADER Gender Identity Not on file Sexual Orientation Not on file documented as of this encounter Plan of Treatment Not on file documented as of this encounter Goals Goal Patient Goal Type Associated Problems Recent Progress Patient-Stated? Author Pain Management General On track( 025 12:40 PM CATTLE TRADER) Yes Juhi Benson RN Note: Goal Statement: [...] on filedocumented in this encounter Care Teams Rope Tow Operator Relationship Specialty Start Date End Date Veronica Joseph MD [address] [place] [address] PCP - General Family Medicine 06/18/24 Mor Ramsey Medical Student 04/03/24 Case Samuel MD [address] [place] [address] [address], [address] [place] [address] Assigned Pediatric Specialist Provider 05/18/24 Juhi Benson, RN Specialty Abrasive Grinder Hematology & Oncology 05/29/24 documented as of this encounter
--- OUTSIDE RECORDS SUMMARY | 2024-06-24 20:11 | XMS_ITS | Encounter Summary ---
Author Organization [facility] Address [address] [place] [address] Care Team Providers Care Youth Program Director Name Role Phone RoxyElvirac Unavailable Unavailable Case Samuel MD Unavailable [phone] Juhi Benson RN Unavailable Unavailable Veronica Joseph MD Primary Care Provider [phone] Reason for Visit * Reason Comments Sickle Cell Pain Crisis Pt reports pain in back and b/l legs Encounter Details Date Type Department Care Team (Late st Contact Info) Description 06/23/2024 6:03 PM PATIENT APPOINTMENT COORDINATOR - 06/23/2024 9:47 PM PATIENT APPOINTMENT COORDINATOR Emergency [facility] Emergency Department [address] [place] [phone] Dayna Crane MD [address] [address] Sickle cell disease with crisis (H) Discharge [...] file Legal Sex Female 8:25 AM PATIENT APPOINTMENT COORDINATOR Gender Identity Not on file Sexual Orientation Not on file documented as of this encounter Last Filed Vital Signs Vital Sign Reading Time Taken Comments Blood Pressure 114/66 06/23/2024 7:49 PM PATIENT APPOINTMENT COORDINATOR Pulse 100 06/23/2024 5:53 PM PATIENT APPOINTMENT COORDINATOR Temperature 36.7 C (98 F) 06/23/2024 7:49 PM PATIENT APPOINTMENT COORDINATOR Respiratory Rate 16 06/23/2024 7:49 PM PATIENT APPOINTMENT COORDINATOR Oxygen Saturation 99% 06/23/2024 7:49 PM PATIENT APPOINTMENT COORDINATOR Inhaled Oxygen Concentration - - Weight 52.2 kg (115 lb) 06/23/2024 5:53 PM PATIENT APPOINTMENT COORDINATOR Height 154.9 cm (5' 1) 06/23/2024 5:53 PM PATIENT APPOINTMENT COORDINATOR Body Mass Index 21.73 06/23/2024 5:53 PM PATIENT APPOINTMENT COORDINATOR documented in this encounter Discharge Instructions * Discharge Instructions* Dayna Crane MD - 06/23/2024 9:00 PM PATIENT APPOINTMENT COORDINATOR Please make an appointment to follow up with Your Primary Care Provider in 2-3 days. ENT APPOINTMENT COORDINATOR ENT APPOINTMENT COORDINATOR * Attachments The following attachments cannot be sent through Care Everywhere. * Sickle Cell Crisis (Nigerian) documented in this encounter Medications at Time [...] 05/01/2024 naloxone (NARCAN) 4 MG/0.1ML nasal spray Zebulon 1 spray (4 mg) into one nostril alternating nostrils as needed for opioid reversal (for opiate overdose if not breathing and unconscious. have your family member watch video on how to use/read information sheet). every 2-3 minutes until assistance arrives 2 each 06/06/2024 documented as of this encounter ED Notes * Gela Booker - 06/23/2024 6:12 PM CST Bed: [facility] Expected date: Expected time: Means of arrival: Comments: X3 monitor: G42 ENT APPOINTMENT COORDINATOR * Melanie Menon RN - 06/23/2024 5:54 PM CST Pt presents with sickle cell crisis with reported pain to the back and b/l legs. Triage Assessment (Adult) Row Name 06/23/24 1754 Triage Assessment Airway WDL WDL Respiratory WDL Respiratory WDL WDL Skin Circulation/Temperature WDL Skin Circulation/Temperature WDL WDL Cardiac WDL Cardiac WDL WDL Peripheral/Neurovascular WDL Peripheral Neurovascular WDL WDL Cognitive/Neuro/Behavioral WDL Cognitive/Neuro/Behavioral WDL WDL ENT APPOINTMENT COORDINATOR documented in this encounter Plan of Treatment Not on file documented as of this encounter Goals Goal Patient Goal Type Associated Problems Recent Progress Patient-Stated? Author Pain Management General On track( 025 12:40 PM PATIENT APPOINTMENT COORDINATOR) Yes Juhi Benson, RN Note: Goal [...] Comments CBC WITH PLATELETS AND DIFFERENTIAL STAT 06/23/2024 6:22 PM PATIENT APPOINTMENT COORDINATOR CBC WITH PLATELETS & DIFFERENTIAL STAT 06/23/2024 6:22 PM PATIENT APPOINTMENT COORDINATOR HCG QUALITATIVE STAT 06/23/2024 6:22 PM PATIENT APPOINTMENT COORDINATOR DIFFERENTIAL STAT 06/23/2024 6:22 PM PATIENT APPOINTMENT COORDINATOR COMPREHENSIVE METABOLIC PANEL STAT 06/23/2024 6:22 PM PATIENT APPOINTMENT COORDINATOR documented in this encounter Results * (ABNORMAL) Manual Differential (06/23/2024 6:22 PM PATIENT APPOINTMENT COORDINATOR) Pathologist [facility] % Neutrophils 73 % 06/23/2024 7:05 PM PATIENT APPOINTMENT COORDINATOR [facility] % Lymphocytes 24 % 06/23/2024 7:05 PM PATIENT APPOINTMENT COORDINATOR [facility] % Monocytes 2 % 06/23/2024 7:05 PM PATIENT APPOINTMENT COORDINATOR [facility] % Eosinophils 0 % 06/23/2024 7:05 PM PATIENT APPOINTMENT COORDINATOR [facility] % Basophils 2 % 06/23/2024 7:05 PM PATIENT APPOINTMENT COORDINATOR [facility] NRBCs per 100 WBC 12(H) <=0 % 06/23/2024 7:05 PM PATIENT APPOINTMENT COORDINATOR [facility] Absolute Neutrophils 7.2 1.6 - 8.3 10e3/uL 06/23/2024 7:05 PM PATIENT APPOINTMENT COORDINATOR [facility] Absolute Lymphocytes 2.3 0.8 - 5.3 10e3/uL 06/23/2024 7:05 PM PATIENT APPOINTMENT COORDINATOR [facility] Absolute Monocytes 0.2 0.0 - 1.3 10e3/uL 06/23/2024 7:05 PM PATIENT APPOINTMENT COORDINATOR [facility] Absolute Eosinophils 0.0 0.0 - 0.7 10e3/uL 06/23/2024 7:05 PM PATIENT APPOINTMENT COORDINATOR [facility] Absolute Basophils 0.2 0.0 - 0.2 10e3/uL 06/23/2024 7:05 PM PATIENT APPOINTMENT COORDINATOR [facility] Absolute NRBCs 1.2(H) <=0.0 10e3/uL 025 7:05 PM PATIENT APPOINTMENT COORDINATOR [facility] RBC Morphology Confirmed RBC Indices 06/23/2024 7:05 PM PATIENT APPOINTMENT COORDINATOR [facility] Platelet Assessment Automated Count Confirmed. Platelet morphology is normal. Automated Count Confirmed. Platelet morphology is normal. 06/23/2024 7:05 PM PATIENT APPOINTMENT COORDINATOR [facility] Polychromasia Slight(A) None Seen 06/23/2024 7:05 PM PATIENT APPOINTMENT COORDINATOR [facility] Sickle Cells Slight(A) None Seen 06/23/2024 7:05 PM PATIENT APPOINTMENT COORDINATOR [facility] Target Cells Slight(A) None Seen 06/23/2024 7:05 PM PATIENT APPOINTMENT COORDINATOR [facility] Blood BLOOD SPECIMEN / Unknown Venipuncture / Unknown 06/23/2024 6:22 PM PATIENT APPOINTMENT COORDINATOR 06/23/2024 6:34 PM PATIENT APPOINTMENT COORDINATOR us Dayna Crane MD LAB - BLOOD ORDERABLES Final Re sult [facility] [address] [facility], [address] [place] [address] * (ABNORMAL) CBC with platelets and differential (06/23/2024 6:22 PM PATIENT APPOINTMENT COORDINATOR) WBC Count 9.8 4.0 - 11.0 10e3/uL 06/23/2024 6:45 PM PATIENT APPOINTMENT COORDINATOR [facility] RBC Count 2.49(L) 3.80 - 5.20 10e6/uL 06/23/2024 6:45 PM PATIENT APPOINTMENT COORDINATOR [facility] Hemoglobin 8.0(L) 11.7 - 15.7 g/dL 06/23/2024 6:45 PM PATIENT APPOINTMENT COORDINATOR [facility] Hematocrit 24.2(L) 35.0 - 47.0 % 06/23/2024 6:45 PM PATIENT APPOINTMENT COORDINATOR [facility] MCV 97 78 - 100 fL 06/23/2024 6:45 PM PATIENT APPOINTMENT COORDINATOR [facility] MCH 32.1 26.5 - 33.0 pg 06/23/2024 6:45 PM PATIENT APPOINTMENT COORDINATOR [facility] MCHC 33.1 31.5 - 36.5 g/dL 06/23/2024 6:45 PM PATIENT APPOINTMENT COORDINATOR [facility] RDW 18.8(H) 10.0 - 15.0 % 06/23/2024 6:45 PM PATIENT APPOINTMENT COORDINATOR [facility] Platelet Count 482(H) 150 - 450 10e3/uL 06/23/2024 6:45 PM PATIENT APPOINTMENT COORDINATOR [facility] Blood BLOOD SPECIMEN / Unknown Venipuncture / Unknown 06/23/2024 6:22 PM PATIENT APPOINTMENT COORDINATOR 06/23/2024 6:34 PM PATIENT APPOINTMENT COORDINATOR Dayna Crane MD LAB - BLOOD ORDERABLES Final Re sult Performing Organization Address City/[facility]/ZIP Co de Phone Number [facility] [address] [facility], [address] [id number] [place] [address] * HCG qualitative Blood (06/23/2024 6:22 PM PATIENT APPOINTMENT COORDINATOR) Pathologist [facility] hCG Serum Qualitative Negative Negative JARET 06/23/2024 6:49 PM PATIENT APPOINTMENT COORDINATOR [facility] Comment:This test is for scr eening purposes. Results should be interpreted along with the clinical picture. Confirmation testing is available if warranted by ordering [id number], HCG Quantitative . Blood BLOOD SPECIMEN / Unknown Venipuncture / Unknown 06/23/2024 6:22 PM PATIENT APPOINTMENT COORDINATOR 06/23/2024 6:38 PM PATIENT APPOINTMENT COORDINATOR Dayna Crane MD LAB - BLOOD ORDERABLES Final Re sult Performing Organization Address [facility] de Phone Number [facility] [address] [facility], [address] [id number] * (ABNORMAL) Comprehensive metabolic panel (06/23/2024 6:22 PM PATIENT APPOINTMENT COORDINATOR) Pathologist [facility] Sodium 140 135 - 145 mmol/L 06/23/2024 7:13 PM PATIENT APPOINTMENT COORDINATOR [facility] Potassium 4.3 3.4 - 5.3 mmol/L 06/23/2024 7:13 PM PATIENT APPOINTMENT COORDINATOR [facility] Carbon Dioxide (CO2) 24 22 - 29 mmol/L 06/23/2024 7:13 PM PATIENT APPOINTMENT COORDINATOR [facility] Anion Gap 7 7 - 15 mmol/L 06/23/2024 7:13 PM PATIENT APPOINTMENT COORDINATOR [facility] Urea Nitrogen 6.8 6.0 - 20.0 mg/dL 06/23/2024 7:13 PM PATIENT APPOINTMENT COORDINATOR [facility] Creatinine 0.61 0.51 - 0.95 mg/dL 06/23/2024 7:13 PM PATIENT APPOINTMENT COORDINATOR [facility] GFR Estimate >90 >60 mL/min/1.7 3m2 06/23/2024 7:13 PM PATIENT APPOINTMENT COORDINATOR [facility] Comment:eGFR calculated 2020 CKD-EPI equation. Calcium 8.8 8.8 - 10.4 mg/dL 06/23/2024 7:13 PM PATIENT APPOINTMENT COORDINATOR [facility] Chloride 109(H) 98 - 107 mmol/L 06/23/2024 7:13 PM PATIENT APPOINTMENT COORDINATOR [facility] Glucose 102(H) 70 - 99 mg/dL 06/23/2024 7:13 PM PATIENT APPOINTMENT COORDINATOR [facility] Alkaline Phosphatase 125 40 - 150 U/L 06/23/2024 7:13 PM PATIENT APPOINTMENT COORDINATOR [facility] AST 84(H) 0 - 45 U/L 06/23/2024 7:13 PM PATIENT APPOINTMENT COORDINATOR [facility] ALT 69(H) 0 - 50 U/L 06/23/2024 7:13 PM PATIENT APPOINTMENT COORDINATOR [facility] Protein Total 7.8 6.4 - 8.3 g/dL 06/23/2024 7:13 PM PATIENT APPOINTMENT COORDINATOR [facility] Albumin 4.2 3.5 - 5.2 g/dL 06/23/2024 7:13 PM PATIENT APPOINTMENT COORDINATOR [facility] Bilirubin Total 1.5(H) <=1.2 mg/dL 06/23/2024 7:13 PM PATIENT APPOINTMENT COORDINATOR [facility] Blood BLOOD SPECIMEN / Unknown Venipuncture / Unknown 06/23/2024 6:22 PM PATIENT APPOINTMENT COORDINATOR 06/23/2024 6:34 PM PATIENT APPOINTMENT COORDINATOR us Dayna Crane MD LAB - BLOOD ORDERABLES Final Re sult [facility] [address] [facility], [address] [phone] documented in this encounter Visit Diagnoses Diagnosis Sickle cell disease with crisis (H) Hb-SS disease with crisis documented in this encounter Administered Medications Inactive Administered Medications - up to 3 most recent administrations Medication Order MAR Action Action Date Dose Rate Site diphenhydrAMINE (BENADRYL) capsule 25 mg 25 mg, Oral, ONCE, On Wed06/23/24 at 1920, For 1 dose $Given 06/23/2024 7:43 PM PATIENT APPOINTMENT COORDINATOR 25 mg heparin lock flush 100 unit/mL injection 100 Units 100 Units, Intravenous, ONCE, On Wed06/23/24 at 2100, For 1 dose $Given 06/23/2024 9:25 PM PATIENT APPOINTMENT COORDINATOR 100 Units hydromorphone (DILAUDID) injection 2 mg 2 mg, Intravenous, EVERY 1 HOUR PRN, severe pain, Starting on Wed06/23/24 at 1806, X 3 max $Given 06/23/2024 8:46 PM PATIENT APPOINTMENT COORDINATOR 2 mg $Given 06/23/2024 7:43 PM PATIENT APPOINTMENT COORDINATOR 2 mg $Given 06/23/2024 6:28 PM PATIENT APPOINTMENT COORDINATOR 2 mg sodium chloride 0.9% BOLUS 1,000 mL Intravenous, 1,000 mL, ONCE, at 1,000 mL/hr, Administer over 1 Hours, On Wed06/23/24 at 1810, For 1 dose $New Bag 06/23/2024 6:28 PM PATIENT APPOINTMENT COORDINATOR 1,000 mLs 1000 mL/hr documented in this encounter Active and Recently Administered Medications Times are shown in PATIENT APPOINTMENT COORDINATOR. Scheduled Medication Order 06/21/2024 06/22/2024 06/23/2024 diphenhydrAMINE (BENADRYL) capsule 25 mg (COMPLETED) 25 mg, Oral, ONCE, On Wed06/23/24 at 1920, For 1 dose 1942 ($Given - Provi nas: Mason Moon RN) heparin lock flush 100 unit/mL injection 100 Units (COMPLETED) 100 Units, Intravenous, ONCE, On Wed06/23/24 at 2100, For 1 dose 2124 ($Given - Provi nas: Mason Moon RN) sodium chloride 0.9% BOLUS 1,000 mL (COMPLETED) Intravenous, 1,000 mL, ONCE, at 1,000 mL/hr, Administer over 1 Hours, On Wed06/23/24 at 1810, For 1 dose 1827 ($New Bag - Pro vider: Tristian France RN)2043 (Stopped - Provider: Mason Moon RN) PRN Medication Order 06/21/2024 06/22/2024 06/23/2024 hydromorphone (DILAUDID) injection 2 mg 2 mg, Intravenous, EVERY 1 HOUR PRN, severe pain, Starting on Wed06/23/24 at 1806, X 3 max 1828 ($Given - Provi nas: Tristian France RN)1942 ($Given - Provider: Mason Moon RN)2045 ($Given - Provider: Mason Moon RN) documented in this encounter Care Teams Youth Program Director Relationship Specialty Start Date End Date Veronica Joseph MD [address] [place] [address] PCP - General Family Medicine 06/18/24 Mor Ramsey Medical Student 04/03/24 Case Samuel MD [address] [place] [address] [address], [address] [place] [address] Assigned Pediatric Specialist Provider 05/18/24 Juhi Benson, SOFIA Specialty Strategic Partnership Representative Hematology & Oncology 05/29/24 documented as of this encounter
--- OUTSIDE RECORDS SUMMARY | 2024-06-24 20:11 | XMS_ITS | Encounter Summary ---
Author Organization [facility] Address [address] [place] [address]. [place] [address] Care Team Providers Care Corporate Vp Advertising & Online Name Role Phone No Ref-Primary, Physician Primary Care Provider Mor Ramsey Unavailable Unavailable Case Samuel MD Unavailable [phone] Juhi Benson RN Unavailable Unavailable Encounter Details [...] on file Legal Sex Female 8:25 AM SENIOR SUSTAINABILITY CONSULTANT Gender Identity Not on file Sexual Orientation Not on file documented as of this encounter Plan of Treatment Not on file documented as of this encounter Goals Goal Patient Goal Type Associated Problems Recent Progress Patient-Stated? Author Pain Management General On track( 025 12:40 PM SENIOR SUSTAINABILITY CONSULTANT) Yes Juhi Benson RN Note: Goal Statement: [...] on filedocumented in this encounter Care Teams Corporate Vp Advertising & Online Relationship Specialty Start Date End Date No Ref-Primary, Physician PCP - General 03/15/24 06/17/24 Mor Ramsey Medical Student 04/03/24 Case Samuel MD [address] [place] [address] [address], [address] [place] [address] Assigned Pediatric Specialist Provider 05/18/24 Juhi Benson RN Specialty Global Position System Technician Hematology & Oncology 05/29/24 documented as of this encounter
--- OUTSIDE RECORDS SUMMARY | 2024-06-24 20:11 | XMS_ITS | Encounter Summary ---
Author Organization [facility] Address [address] [place] [address]. 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 Call member services at your health plan with any benefit or coverage questions. GED CARE COORDINATOR Reason for Visit * Reason Comments Sickle Cell Pain Crisis * Auth/Cert Specialty Diagnoses / Procedures Referred By Contkameron t Referred To Contact EMERGENCY MEDICINE Diagnoses Acute chest pain Sickle cell pain crisis (H) [facility] Emergency Department [address] [place] [address] Phone: tel: Referral ID Status Reason Start Date Expiration Date Visits Re quested Visits Authorized [id number] 1 1 Encounter Details Date Type Department Care Team (Latest Contact Info) Description 06/12/2024 6:38 PM MANAGED CARE COORDINATOR - 06/15/2024 10:48 AM MANAGED CARE COORDINATOR Hospital Encounter [facility] Emergency Department [address] [place] [id number] Abdelrahman Goddard MD [address] [place] [address] Andres Jain DO Duffy, Briar, MD [address] [facility] [address] [place] [address] 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) [...] on file Legal Sex Female 8:25 AM MANAGED CARE COORDINATOR Gender Identity Not on file Sexual Orientation Not on file documented as of this encounter Last Filed Vital Signs Vital Sign Reading Time Taken Comments Blood Pressure 99/64 06/15/2024 6:10 AM MANAGED CARE COORDINATOR Pulse 75 06/15/2024 6:10 AM MANAGED CARE COORDINATOR Temperature 36.7 C (98 F) 06/15/2024 6:10 AM MANAGED CARE COORDINATOR Respiratory Rate 16 06/15/2024 6:10 AM MANAGED CARE COORDINATOR Oxygen Saturation 100% 06/15/2024 6:10 AM MANAGED CARE COORDINATOR Inhaled Oxygen Concentration - - Weight - - Height - - Body Mass Index - - documented in this encounter Discharge Summaries * Rl Elias MD - 06/15/2024 8:58 AM CST [facility] Discharge Summary - Medicine & Pediatrics Date of Admission: 06/12/2024 Date of Discharge: 06/15/2024 Discharging Provider: Dr Rl Elias, Dr German Hall Discharge Service: Medicine Service, [facility] Discharge Diagnoses Acute sickle cell pain crisis Right lower lobe pneumonia Clinically Significant Risk Factors Follow-ups Needed After Discharge Follow-up Appointments Hospital to Primary Care - Establish PCP Referral Please be aware that coverage of these services is subject to the terms and limitations of your health insurance plan. Call member services at your health plan with any benefit or coverage questions. Schedule Primary Care visit within: 7 Days Unresulted Labs Ordered in the Past 30 Days of this Admission Date and Time Order Name Status Description 06/12/2024 8:12 PM Blood Culture Peripheral Blood Preliminary 06/12/2024 8:12 PM Blood Culture Peripheral Blood Preliminary These results will be followed up by PCP Discharge Disposition Discharged to home Condition at [...] sickle cell pain and acute chest pain. She was admitted for acute sickle cell pain crisis to help with her pain, which improved enough for her to discharge to home. 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 Cardiac etiology considered but less likely given normal EKG and troponins. PE considered but less likely given no LE extremity and normal EKG. Acute Chest Syndrome and infectious process considered; patient has faint infiltrates on chest XR though similar to prior and has elevated WBC, but patient denies fever, chills, cough, or difficulty breathing. Also she has been breathing comfortably on room air and no wheezing appreciated on exam. CXR negative for rib fractures. Respiratory panel negative. Given decreasing hemoglobin, presence of sickled RBCs on smear along with reticulocytes and target cells, sickle cell paincrisis is most likely cause of chest pain. Second chest XR on 06/14 showing slight increase of ill-defined focal opacity in addition to new wheezing on exam, WBC remains elevated but downtrending, 13.4 down from 17.0 on admission. Continued her on IV antibioitics throughout the course of her admission, but transitioned to oral cefopodoxime on discharge. Remains afebrile, no cough, no SOB but feels some intermittent chest pressure and pain in her back. Per Hematology, no indication for transfusion while inpatient and upon discharge, hemoglobin at 7.1. Followed patient's pain plan while inpatient with dilaudid 2 mg IV scheduled, maintenance LR, zofran, benadryl, and senna PRN. Patient's pain not completely resolved upon discharge, but she was wishing to go home as she needed to take care of her daughter. - complete cefpodoxime 3 days to complete 5 day course of antibiotics - Continue [employer]ISION MANAGER hydroxyurea - Continue [employer] DIVISION MANAGER folic acid - Continue albuterol inhaler QID given in the ED - Patient should follow up with her PCP upon discharge in 2-3 weeks - Patient should restart pain plan as taking at home with PO hydromorphone 2 mg Q6H PRN for pain upon discharge #Anxiety #Nausea - Continue [employer] MANAGER Fluoxetine 10 mg daily Consultations This Hospital Stay HEMATOLOGY ADULT IP CONSULT CARE MANAGEMENT / SOCIAL WORK IP CONSULT Code Status Full Code The patient was discussed with Dr. Hall. MD Oliver LANGLEY [address] [place] [address] EMERGENCY DEPARTMENT [address] [facility] [place] [address] Physical Exam Vital Signs: Temp: 98 ??F (36.7 ??C) Temp src: Oral BP: 99/64 Pulse: 75 Resp: 16 SpO2: 100 % O2 Device: [...] normal eye contact, Affect: normal and pleasant Primary Care Physician Physician No Ref-Primary Discharge Orders Hospital to Primary Care - Establish PCP Referral Reason for your hospital stay You were hospitalized for concerns of a sickle cell pain crisis and we followed your pain plan in hopes to improve your pain. On your CXR, we did see some concerning infiltrates that could potentially indicate some pneumonia. Due to this, we will have you finish a course of antibiotics. Please finish taking your cefpodoxime to complete a total course of 5 days (until your pills run out). Please be seen back in the ED if you have any worsening pain, fevers, chills, or new respiratory symptoms (coughing, nose running, etc.). Please follow up with your primary care provider & your primary Hot Plate Plywood Press Laborer as indicated. Activity Your activity upon discharge: activity as tolerated Diet Follow this diet upon discharge: Current Diet:Orders Placed This Encounter Regular Diet Adult Significant Results and Procedures Most Recent 3 CBC's: Recent Labs Lab Test 06/15/24 0609 06/14/24 0708 06/13/24 1832 WBC 11.8* 13.4* 15.3* HGB 7.2* 6.9* 6.8* MCV 90 94 94 PLT 500* 501* 495* Most Recent 3 BMP's: Recent Labs Lab Test 06/15/24 0609 06/14/24 0708 06/13/24 0559 NA 136 136 135 POTASSIUM 4.4 4.2 4.3 CHLORIDE 104 107 105 CO2 21* 20* 21* BUN 10.1 6.5 4.9* CR 0.65 0.71 0.70 ANIONGAP 11 9 9 EVELIN 8.9 8.9 8.7* GLC 104* 92 100* , Results for orders placed or performed during the hospital encounter of 06/12/24 XR Chest 2 Views Narrative EXAM: XR CHEST 2 VIEWS LOCATION: [facility] DATE: 06/12/2024 INDICATION: CP COMPARISON: 06/03/2024, 05/27/2024 Impression IMPRESSION: A few faint peripheral reticulonodular opacities in the mid and lower lungs again seen.Lungs otherwise clear. No pleural effusion. No pneumothorax. Borderline cardiac enlargement unchanged. Port anterior right chest wall with right IJ central venous catheter tip low SVC. Port anterior left chest wall with left IJ central venous catheter tip low SVC. XR Chest Port 1 View Narrative Exam: XR CHEST PORT 1 VIEW, 06/14/2024 8:46 AM Indication: evaluate in setting of worsening wheezing Comparison: 06/12/2024 Findings: Right IJ Port-A-Cath tip in the low superior vena cava. Left Port-A-Cath tip in the high superior vena cava. Heart and pulmonary vasculature within normal limits. Slight increase in the ill-defined opacity throughout the right lower lung. The pleural spaces are clear. Impression Impression: Further increase in ill-defined opacity projecting over the right lower lung concerning for pneumonia. MARIO ALBERTO BLACKWOOD MD Discharge Medications Discharge Medication List as of 06/15/2024 9:03 AM START taking these medications Details cefpodoxime (VANTIN) 200 MG tablet Take 1 tablet (200 mg) by mouth 2 times daily for 3 days., Disp-6 tablet, R-0, E-Prescribe CONTINUE these medications which have NOT CHANGED Details diphenhydrAMINE (BENADRYL) 25 MG tablet Take 1-2 tablets by mouth every 6 hours as needed for itching., Historical EPINEPHrine (ANY BX GENERIC EQUIV) 0.3 MG/0.3ML injection 2-pack Inject 0.3 mg into the muscle as needed for anaphylaxis. May repeat one time in 5-15 minutes if response to initial dose is inadequate., Historical FLUoxetine (PROZAC) 10 MG capsule Take 1 capsule (10 mg) by mouth daily., Disp- 40 capsule, R-1, E-Prescribe folic acid (FOLVITE) 1 MG tablet Take 1 tablet (1 mg) by mouth daily., Disp-30 tablet, R-11, E-Prescribe HYDROmorphone (DILAUDID) 2 MG tablet Take 2 tablets (4 mg) by mouth every 6 hours as needed for severe pain., Disp-40 tablet, R-0, E-Prescribe hydroxyurea (HYDREA) 500 MG capsule Take 2 capsules (1,000 mg) by mouth 2 times daily, Disp-120 capsule, R-11, E-Prescribe ibuprofen (ADVIL/MOTRIN) 200 MG tablet Take 200 mg by mouth every 6 hours as needed for pain., Historical multivitamin, therapeutic (THERA-VIT) TABS tablet Take 1 tablet by mouth daily., Disp-30 tablet, R-11, E-Prescribe naloxone (NARCAN) 4 MG/0.1ML nasal spray Ransom 1 spray (4 mg) into one nostril alternating nostrilsas needed for opioid reversal (for opiate overdose if not breathing and unconscious. have your family member watch video on how to use/read information sheet). every 2-3 minutes until assistance arrives, Disp-2 each, R-0, E-Prescribe Allergies Allergies Allergen Reactions Banana Anaphylaxis, Hives [...] Hives Cashew Nut Oil Hives Cosigned by German Hall MD at 06/22/2024 12:17 PM MANAGED CARE COORDINATOR GED CARE COORDINATOR GED CARE COORDINATOR Associated attestation - German Hall MD - 06/22/2024 12:17 PM MANAGED CARE COORDINATOR Attestation: This patient has been seen and evaluated by me, eGrman Hall MD. Discussed with the house staff team or resident(s) and agree with the findings and plan in this note. I have reviewed today's Medications, Vital Signs, and Labs. Time spent on patient: 20 minutes total. DOS 06/15 documented in this encounter Medications at Time [...] 05/01/2024 naloxone (NARCAN) 4 MG/0.1ML nasal spray Ransom 1 spray (4 mg) into one nostril [...] for 3 days. 6 tablet 06/15/2024 5 documented as of this encounter Progress Notes [...] Overall, I spent 35 minutes today (DOS) cesu-dq-dcpv and/or coordinating care as documented above and specifically listed as below: --Reviewing documentation related to patient's history and this current admission available in [place] [employer] [facility]) --Review and clinical interpretation of pertinent laboratory test results and radiology reports from this admission --Discussion of the patient's case with the members of the Hematology Consult Team --Discussion with the patient --Documentation in the electronic health record GED CARE COORDINATOR * Rl Elias MD - 06/14/2024 7:08 [...] Service (when I saw the patient): 06/14/24 [facility] Progress Note - [facility] Date of Admission: 06/12/2024 Assessment [...] 7-9, most recent Hbg 8.8 on 06/07 [employer]ISION MANAGER. Hb.5 -> 6.4 -> 6.8 -> 6.9 Plan: - Blood cultures pending x2 - NGTD - CTM hemoglobin daily - Ordered Voltaren gel, lidocaine patches, and icy hot PRN - Continue Ceftriaxone and Azithromycin for ppx (06/12 -*), consider transition to PO this afternoon - Continue [employer] MANAGER hydroxyurea - Continue [employer] MANAGER folic acid - Continue IS - type and screen ordered, consented for blood on 06/13 - no indication for transfusion unless hemodynamically unstable - Hematology consulted, appreciate recs - Hydromorphone 2 mg IV Q2H scheduled--titrate within 24-48 hours - Maintenance LR - Transfusion not recommended at this time - albuterol inhaler q6h, zofran, benadryl, docusate, senna PRN #Anxiety #Nausea - Continue [employer] MANAGER Fluoxetine - Benadryl PRN per Pain Plan [...] Nivia Carvajal, MS3 Medical Student Medicine Service, [facility] [address] [place] [address] Securely message with [employer] (more info) Text page via [facility] Paging/Directory See signed in provider for up [...] German Hall MD at 06/19/2024 8:50 AM MANAGED CARE COORDINATOR GED CARE COORDINATOR GED CARE COORDINATOR GED CARE COORDINATOR Associated attestation - German Hall MD - 06/19/2024 8:50 AM MANAGED CARE COORDINATOR Attestation: This patient has been seen and [...] Service (when I saw the patient): 06/13/24 [facility] Progress Note - Medicine Service, [facility] 1 Date of Admission: 06/12/2024 Assessment [...] 7-9, most recent Hbg 8.8 on 06/07 [employer] DIVISION MANAGER. Hb.5 -> 6.4 Plan: -Blood cultures pending x2 -CTM hemoglobin daily -Continue Ceftriaxone and Azithromycin for ppx (06/12 -*) -Continue [employer] MANAGER hydroxyurea -Continue [employer]ISION MANAGER folic acid - type and screen ordered, consented for blood - no indication for transfusion unless hemodynamic instability - Hematology consulted, appreciate recs -Hydromorphone 2 mg IV Q3H scheduled--titrate within 24-48 hours -Maintenance LR -Transfusion not recommended at this time - zofran, benadryl, docusate, senna PRN #Anxiety #Nausea -Continue [employer] MANAGER Fluoxetine -Benadryl PRN per Pain Plan -Zofran [...] Nivia Carvajal, MS3 Medical Student Medicine Service, [facility] [address] [place] [address] Securely message with [employer] (more info) Text page via [employer] Paging/Directory See signed in provider for up [...] Narrative EXAM: XR CHEST 2 VIEWS LOCATION: [facility] DATE: 06/12/2024 INDICATION: CP COMPARISON: 06/03/2024, 05/27/2024 [...] German Hall MD at 06/14/2024 8:25 AM MANAGED CARE COORDINATOR GED CARE COORDINATOR GED CARE COORDINATOR Associated attestation - German Hall MD - 06/14/2024 8:25 AM MANAGED CARE COORDINATOR Attestation: This patient has been seen and evaluated by me, German Hall MD. Discussed with the house staff team or resident(s) and agree with the findings and plan in this note. I have reviewed today's Medications, Vital Signs, and Labs. DOS 06/13 * Mary Flores MD - 06/12/2024 8:20 PM CST rn call center Hematology fellow note 29F Sickle cell disease [...] Flores MD MS Hematology fellow, PGY5 Pager: [phone] Cosigned by Kirstin Long MD at 06/13/2024 7:25 AM MANAGED CARE COORDINATOR GED CARE COORDINATOR GED CARE COORDINATOR GED CARE COORDINATOR Associated attestation - Kirstin Long MD - 06/13/2024 7:25 AM MANAGED CARE COORDINATOR Physician Attestation I discussed patient overnight with fellow fashion director party plan sales. I agree with plan as outlined. I did not see thepatient on this date. Kirstin Long MD/PhD documented in this encounter H&P Notes * Laquita Kelley MD - 06/12/2024 9:37 PM CST [facility] History and Physical - Medicine Service, [facility] Date of Admission: 06/12/2024 Assessment & [...] of avascular necrosis of left hip -Continue [employer] MANAGER hydroxyurea -Continue [employer] MANAGER folic acid -Transfuse for Hb<7 #Stroke reported [...] Jain . Laquita Kelley MD Medicine Service, [facility] Securely message with [employer] (more info) Text page via [facility] Paging/Directory See signed in provider for 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, had port-a-cath in [facility] Functional asplenia Gallstones Hb-SS disease without [...] 4 MG/0.1ML nasal spray No No Sig: Ransom 1 spray (4 mg) into one nostril [...] Andres Jain DO at 06/12/2024 10:27 PM MANAGED CARE COORDINATOR GED CARE COORDINATOR GED CARE COORDINATOR GED CARE COORDINATOR GED CARE COORDINATOR Associated attestation - Andres Jain DO - 06/12/2024 10:27 PM MANAGED CARE COORDINATOR Physician Attestation I saw this patient with [...] documented in this encounter Consult Notes * Kahteryn Carter RN - 06/13/2024 10:44 AM CSTAssociated [...] Communication Assessment Patient's communication style: spoken language (Sao Tomean or Bilingual) Cognitive Cognitive/Neuro/Behavioral: WDL Living Environment: [...] Depression: Not at risk (04/11/2024) Received from [facility] PHQ-2 PHQ-2 TOTAL SCORE: 1 Housing Stability: [...] Social Connections: Socially Integrated (03/28/2024) Received from [facility] Social Connections Do you often feel lonely or isolated from those around you?: 0 Health Literacy: Not on file Functional Status: Prior to admission patient needed assistance: Dependent ADLs:: Independent Dependent IADLs:: Independent Mental Health Status: Mental Health Status: No Current Concerns Chemical Dependency Status: Chemical Dependency Status: No Current Concerns Values/Beliefs: Spiritual, Cultural Beliefs, Restorationist Practices, Values that affect care: no Discussed ???Partnership in Safe Discharge Planning??? document with patient/family: Yes: patient Additional Information: Met with patient at bedside fr initial consult due to high risk score. Patient confirmed living at the house address son dallni with significant other and her 2 years old daughter. Patient mentioned being independent with her care at home. Patient drives and family can provide ride at discharge. Patient said she is not currently working. Patient confirmed her current insurance and PCP. PCP updated. No discharge need currently identified. Next Steps: CC will continue to follow. Katheryn Carter RN, PHN, BSN Float Nurse Ceramic Tile Installation Helper Covering for Unit ED Phone [phone] GED CARE COORDINATOR * Kirstin Long MD - 06/13/2024 10:17 AM CSTAssociated Order(s): HEMATOLOGY ADULT IP CONSULT Images from the original note were not included. Hematology Consult Note Date of Service: 06/13/2024 Patient: Gianna Hernández Admission Date: 06/12/2024 Hospital Day # 1 Hematology Diagnosis: Sickle Cell Disease - HbSS Primary Outpatient Hot Plate Plywood Press Laborer: Dr Samuel Current Treatment Plan: Inpatient: Opioid: Hydromorphone 2 mg IV Q3H scheduled--titrate within 24-48 hours LR at maintenance rate x 1-2 days Other Medications: Zofran, Oral Benadryl for anxiety Supportive Care: Docusate, Senna PRN Reason for Consult: Sickle cell anemia presenting with acute chest pain Assessment & Plan: # Sickle Cell Anemia HbSS # Acute pain crisis iGanna Hernández is a 29 year old female [...] mg 4 mg Oral Q6H PRN Laquita Kellye MD Or ondansetron (ZOFRAN) injection 4 mg [...] 11 naloxone (NARCAN) 4 MG/0.1ML nasal spray Ransom 1 spray (4 mg) into one nostril [...] Imaging EXAM: XR CHEST 2 VIEWS LOCATION: [facility] DATE: 06/12/2024 INDICATION: CP COMPARISON: 06/03/2024, 05/27/2024 IMPRESSION: A few faint peripheral reticulonodular opacities in the mid and lower lungs again seen.Lungs otherwise clear. No pleural effusion. No pneumothorax. Borderline cardiac enlargement unchanged. Port anterior right chest wall with right IJ central venous catheter tip low SVC. Port anterior left chest wall with left IJ central venous catheter tip low SVC. GED CARE COORDINATOR documented in this encounter ED Notes * Juhi Crump RN - 06/12/2024 6:55 PM CST Bed: [facility] Expected date: Expected time: Means of arrival: Comments: SICK GED CARE COORDINATOR * Lebron Aponte RN - 06/12/2024 6:34 PM CST Pt ambulatory to triage with CC of sickle cell pain in the L upper anterior chest. Was seen for this at [facility] last night. Reports interventions at [facility] were helpful, however pain has returned. Patient reports taking 4mg po Dilaudid at 1500 with partial relief of pain but is still severe. Contacted oxygen therapy technician and was instructed to come to [facility]. Reports SOB a little bit. It hurts to take a deep breath. Denies dizziness. Triage Assessment (Adult) Row Name 06/12/24 6812 Triage Assessment Airway WDL WDL Respiratory WDL [...] 5-->(V5) oriented Lester Coma Scale Score 15 GED CARE COORDINATOR * Abdelrahman Goddard MD - 06/12/2024 6:20 PM CST Images from the original note were not included. [place] [facility] ([facility]) 06/12/24 ED PROVIDER NOTE History No chief [...] background: 29 yo F, recently moved from [place] Sickle Cell Disease History Primary Hot Plate Plywood Press Laborer/ARCHITECT INTERNSHIP/PA: Lizzie Genotype: SS Acute Pain Crisis Treatment: [...] Data Procedures EKG Interpretation: Interpreted by Jovanny Solheid Time reviewed: 18:40:00 Symptoms at time of EKG: chest pain Rhythm: normal sinus Rate: 94BPM [place]: Normal Ectopy: none Conduction: normal ST Segments/ [...] Rate 102 BPM Atrial Rate 102 BPM IL Interval 158 ms QRS Duration 78 ms QT 348 ms QTc 453 ms P [place] 39 degrees R AXIS 66 degrees T [place] 33 degrees Interpretation ECG Sinus tachycardia Nonspecific T wave abnormality Abnormal ECG When compared with ECG of 05-Jun-2024 11:40, No significant change was found Confirmed by SEE ED PROVIDER NOTE FOR, ECG INTERPRETATION ([id number]), assignment desk editor SELMA GARRISON ([id number]) on 06/11/2024 9:05:27 PM Medications - No [...] No medications on file Final diagnoses: None I, Jovanny Hernadez, am serving as a trained medical transport specialist to document services personally performed by Abdelrahman Goddard MD, based on the provider's statements to me. I, Abdelrahman Goddard MD, was physically present and have reviewed and verified the accuracy of this note documented by Jovanny Hernadez. Abdelrahman Goddard MD [facility] EMERGENCY DEPARTMENT 06/12/2024 Abdelrahman Goddard MD 06/12/242023 GED CARE COORDINATOR documented in this encounter Miscellaneous Notes * Plan of Care - Clay Avina RN - 06/15/2024 9:55 AM CST Goal Outcome Evaluation: Plan of Care Reviewed With: patient Overall Patient Progress: improving 4x A/O. VSS. RA. Independent. AVS reviewed, questions answered. Port de accessed with saline flush and heparin locked. GED CARE COORDINATOR * Plan of Care - Kathy Levy RN - 06/15/2024 6:22 AM CST Goal Outcome Evaluation: Plan of Care Reviewed With: patient Overall Patient Progress: improving Pt is alert anf oriented x4. VSS, on room air with no SOB noted. On pain management for sickle cellcrisis. Tolerating diet well with no n/v. L chest port infusing intermittent IV ABT. Voiding well. Last BM [employer] MANAGER. Pt is up ad chandler. Will continue with plan of care. GED CARE COORDINATOR * Plan of Care - Clay Avina RN - 06/14/2024 5:02 PM CST Goal Outcome Evaluation: Plan of Care Reviewed With: patient Overall Patient Progress: improving 4x A/O. VSS. Independent. Pain controlled with schedule q2hr IV dilaudid. Tolerating regular diet. Voiding spontaneously. Had nausea in AM, relieved with Zofran. Port SL. GED CARE COORDINATOR * Pharmacy-Admission Medication History - Lorenza Valdes - 06/14/2024 11:19 AM CST Machine Cloth Examiner Admission Medication History Admission medication history is complete. The information provided in this note is only as accurateas the sources available at the time of the update. Information Source(s): Patient and CareEverywhere/SureScripts via in-person Pertinent Information: Medication reconciliation completed at bedside with patient. Patient was a good historian of her medication names, doses, frequencies, and last doses. Changes made to [employer]BER [employer] DIVISION MANAGER medication list: Added: Epi-pen: patient has pen available, but has not used recently. Ibuprofen: OTC product used PRN for pain. Benadryl: OTC product used PRN for itching due to hydromorphone. Deleted: None Changed: None Allergies reviewed with patient and updates made in EHR: yes Medication History Completed By: Lorenza Valdes 06/14/2024 11:19 AM [employer] MANAGER Med List Medication Sig Last Dose/Taking diphenhydrAMINE [...] Morning naloxone (NARCAN) 4 MG/0.1ML nasal spray Ransom 1 spray (4 mg) into one nostril alternating nostrilsas needed for opioid reversal (for opiate overdose if not breathing and unconscious. have your family member watch video on how to use/read information sheet). every 2-3 minutes until assistance arrives Taking As Needed Cosigned by Terrell Fernandez RPH at 06/15/2024 10:33 AM MANAGED CARE COORDINATOR GED CARE COORDINATOR GED CARE COORDINATOR Associated attestation - Terrell Fernandez RPH - 06/15/2024 10:33 AM MANAGED CARE COORDINATOR I have read and agree with the student's note. Terrell Fernandez, PGY-1 Vice President Of Operations * Provider Notification - Kiki Caal RN - 06/13/2024 7:27 PM MANAGED CARE COORDINATOR Notified providers Nivia Carvajal, Laquita Kelley and Rl Elias of critical Hgb 6.8 at 1920. No new orders GED CARE COORDINATOR * Plan of Care - Katheryn Carter RN - 06/13/2024 12:44 PM CST Goal Outcome Evaluation: Plan of Care Reviewed With: patient Overall Patient Progress: improvingOverall Patient Progress: improving Outcome Evaluation: Plan: TBD Katheryn Carter RN, PHN, BSN Float Nurse Ceramic Tile Installation Helper Covering for Unit ED Phone [phone] GED CARE COORDINATOR * Plan of Care - Shauna Cuadra [...] with POC. Notify primary team with changes. GED CARE COORDINATOR documented in this encounter Plan of [...] Management General On track( 025 12:40 PM MANAGED CARE COORDINATOR) Yes Juhi Benson RN Note: Goal [...] PLATELETS AND DIFFERENTIAL STAT 06/15/2024 6:09 AM MANAGED CARE COORDINATOR CBC WITH PLATELETS & DIFFERENTIAL STAT 06/15/2024 6:09 AM MANAGED CARE COORDINATOR BASIC METABOLIC PANEL STAT 06/15/2024 6:09 AM MANAGED CARE COORDINATOR XR CHEST PORT 1 VIEW STAT 06/14/2024 8:46 AM MANAGED CARE COORDINATOR BASIC METABOLIC PANEL STAT 06/14/2024 7:08 AM MANAGED CARE COORDINATOR CBC WITH PLATELETS STAT 06/14/2024 7: 08 AM MANAGED CARE COORDINATOR CBC WITH PLATELETS STAT 06/13/2024 6: 32 PM MANAGED CARE COORDINATOR RBC AND PLATELET MORPHOLOGY STAT 06/13/2024 6:00 AM MANAGED CARE COORDINATOR CBC WITH PLATELETS AND DIFFERENTIAL STAT 06/13/2024 6:00 AM MANAGED CARE COORDINATOR CBC WITH PLATELETS & DIFFERENTIAL STAT 06/13/2024 6:00 AM MANAGED CARE COORDINATOR BASIC METABOLIC PANEL STAT 06/13/2024 5:59 AM MANAGED CARE COORDINATOR RESPIRATORY PANEL PCR STAT 06/12/2024 9:34 PM MANAGED CARE COORDINATOR BLOOD CULTURE STAT 06/12/2024 8:46 PM MANAGED CARE COORDINATOR BLOOD CULTURE STAT 06/12/2024 8:46 PM MANAGED CARE COORDINATOR XR CHEST 2 VIEWS STAT 06/12/2024 7:38 PM MANAGED CARE COORDINATOR RBC AND PLATELET MORPHOLOGY STAT 06/12/2024 7:17 PM MANAGED CARE COORDINATOR CBC WITH PLATELETS AND DIFFERENTIAL STAT 06/12/2024 7:17 PM MANAGED CARE COORDINATOR TYPE AND SCREEN, ADULT Routine 06/12/2024 7:17 PM MANAGED CARE COORDINATOR TROPONIN T, HIGH SENSITIVITY STAT 06/12/2024 7:17 PM MANAGED CARE COORDINATOR CBC WITH PLATELETS & DIFFERENTIAL STAT 06/12/2024 7:17 PM MANAGED CARE COORDINATOR INR STAT 06/12/2024 7:17 PM MANAGED CARE COORDINATOR BLOOD GAS VENOUS STAT 06/12/2024 7:17 PM MANAGED CARE COORDINATOR ABO/RH TYPE AND SCREEN Add-On 06/12/2024 7:17 PM MANAGED CARE COORDINATOR BASIC METABOLIC PANEL STAT 06/12/2024 7:17 PM MANAGED CARE COORDINATOR EKG 12-LEAD, TRACING ONLY STAT 06/12/2024 6:37 PM MANAGED CARE COORDINATOR documented in this encounter Results * (ABNORMAL) CBC with platelets and differential (06/15/2024 6:09 AM MANAGED CARE COORDINATOR) Pathologist [facility] [place] WBC Count 11.8(H) 4.0 - 11.0 10e3/uL 06/15/2024 6:36 AM MANAGED CARE COORDINATOR [facility] RBC Count 2.27(L) 3.80 - 5.20 10e6/uL 06/15/2024 6:36 AM MANAGED CARE COORDINATOR [facility] Hemoglobin 7.2(L) 11.7 - 15.7 g/dL 06/15/2024 6:36 AM MANAGED CARE COORDINATOR [facility] Hematocrit 20.4(L) 35.0 - 47.0 % 06/15/2024 6:36 AM MANAGED CARE COORDINATOR [facility] MCV 90 78 - 100 fL 06/15/2024 6:36 AM MANAGED CARE COORDINATOR [facility] MCH 31.7 26.5 - 33.0 pg 06/15/2024 6:36 AM MANAGED CARE COORDINATOR [facility] MCHC 35.3 31.5 - 36.5 g/dL 06/15/2024 6:36 AM MANAGED CARE COORDINATOR [facility] RDW 19.0(H) 10.0 - 15.0 % 06/15/2024 6:36 AM MANAGED CARE COORDINATOR [facility] Platelet Count 500(H) 150 - 450 10e3/uL 06/15/2024 6:36 AM MANAGED CARE COORDINATOR [facility] % Neutrophils 54 % 06/15/2024 6:36 AM MANAGED CARE COORDINATOR [facility] % Lymphocytes 31 % 06/15/2024 6:36 AM MANAGED CARE COORDINATOR [facility] % Monocytes 9 % 06/15/2024 6:36 AM MANAGED CARE COORDINATOR [facility] % Eosinophils 5 % 06/15/2024 6:36 AM MANAGED CARE COORDINATOR [facility] % Basophils 2 % 06/15/2024 6:36 AM MANAGED CARE COORDINATOR [facility] % Immature Granulocytes 1 % 06/15/2024 6:36 AM MANAGED CARE COORDINATOR [facility] NRBCs per 100 WBC 2(H) <1 /100 025 6:36 AM MANAGED CARE COORDINATOR [facility] Absolute Neutrophils 6.3 1.6 - 8.3 10e3/uL 06/15/2024 6:36 AM MANAGED CARE COORDINATOR [facility] Absolute Lymphocytes 3.6 0.8 - 5.3 10e3/uL 06/15/2024 6:36 AM MANAGED CARE COORDINATOR [facility] Absolute Monocytes 1.0 0.0 - 1.3 10e3/uL 06/15/2024 6:36 AM MANAGED CARE COORDINATOR [facility] Absolute Eosinophils 0.6 0.0 - 0.7 10e3/uL 06/15/2024 6:36 AM MANAGED CARE COORDINATOR [facility] Absolute Basophils 0.2 0.0 - 0.2 10e3/uL 06/15/2024 6:36 AM MANAGED CARE COORDINATOR [facility] Absolute Immature Granulocytes 0.1 <=0.4 10e3/uL 06/15/2024 6:36 AM MANAGED CARE COORDINATOR [facility] Absolute NRBCs 0.2 10e3/uL 06/15/2024 6:36 AM MANAGED CARE COORDINATOR [facility] Blood BLOOD SPECIMEN / Unknown IVAD (Port) / Unknown 06/15/2024 6:09 AM MANAGED CARE COORDINATOR 06/15/2024 6:18 AM MANAGED CARE COORDINATOR us Rl Elias MD LAB - BLOOD ORDER SYD Final Result [facility] [place] [facility] [address] [facility], [address] [place] [address] * (ABNORMAL) Basic metabolic panel (06/15/2024 6:09 AM MANAGED CARE COORDINATOR) Sodium 136 135 - 145 mmol/L 06/15/2024 7:13 AM MANAGED CARE COORDINATOR [facility] Potassium 4.4 3.4 - 5.3 mmol/L 06/15/2024 7:13 AM MANAGED CARE COORDINATOR [facility] Chloride 104 98 - 107 mmol/L 06/15/2024 7:13 AM MANAGED CARE COORDINATOR [facility] Carbon Dioxide (CO2) 21(L) 22 - 29 mmol/L 06/15/2024 7:13 AM MANAGED CARE COORDINATOR [facility] Anion Gap 11 7 - 15 mmol/L 06/15/2024 7:13 AM MANAGED CARE COORDINATOR [facility] Urea Nitrogen 10.1 6.0 - 20.0 mg/dL 06/15/2024 7:13 AM MANAGED CARE COORDINATOR [facility] Creatinine 0.65 0.51 - 0.95 mg/dL 06/15/2024 7:13 AM MANAGED CARE COORDINATOR [facility] GFR Estimate >90 >60 mL/min/1.7 3m2 06/15/2024 7:13 AM MANAGED CARE COORDINATOR [facility] Comment:eGFR calculated us2020 CKD-EPI equation. Calcium 8.9 8.8 - 10.4 mg/dL 06/15/2024 7:13 AM MANAGED CARE COORDINATOR [facility] Glucose 104(H) 70 - 99 mg/dL 06/15/2024 7:13 AM MANAGED CARE COORDINATOR [facility] Blood BLOOD SPECIMEN / Unknown IVAD (Port) / Unknown 06/15/2024 6:09 AM MANAGED CARE COORDINATOR 06/15/2024 6:16 AM MANAGED CARE COORDINATOR Rl Elias MD LAB - BLOOD ORDER SYD Final Result [facility] [place] [facility] [address] [facility], [address] [phone] * XR Chest Port 1 View (06/14/2024 8:46 AM MANAGED CARE COORDINATOR) Anatomical Region Laterality Modality Chest Digital Radiogra phy Impressions 06/14/2024 8:59 AM MANAGED CARE COORDINATOR Impression: Further increase in ill-defined opacity projecting over the right lower lung concerning for pneumonia. MARIO ALBERTO BLACKWOOD MD Narrative 06/14/2024 8:59 AM MANAGED CARE COORDINATOR Exam: XR CHEST PORT 1 VIEW, 06/14/2024 [...] (ABNORMAL) CBC with platelets (06/14/2024 7:08 AM MANAGED CARE COORDINATOR) WBC Count 13.4(H) 4.0 - 11.0 10e3/uL 06/14/2024 7:46 AM MANAGED CARE COORDINATOR [facility] RBC Count 2.30(L) 3.80 - 5.20 10e6/uL 06/14/2024 7:46 AM MANAGED CARE COORDINATOR [facility] Hemoglobin 6.9(LL) 11.7 - 15.7 g/dL 06/14/2024 7:46 AM MANAGED CARE COORDINATOR [facility] Hematocrit 21.6(L) 35.0 - 47.0 % 06/14/2024 7:46 AM MANAGED CARE COORDINATOR [facility] MCV 94 78 - 100 fL 06/14/2024 7:46 AM MANAGED CARE COORDINATOR [facility] MCH 30.0 26.5 - 33.0 pg 06/14/2024 7:46 AM MANAGED CARE COORDINATOR [facility] MCHC 31.9 31.5 - 36.5 g/dL 06/14/2024 7:46 AM MANAGED CARE COORDINATOR [facility] RDW 19.4(H) 10.0 - 15.0 % 06/14/2024 7:46 AM MANAGED CARE COORDINATOR [facility] Platelet Count 501(H) 150 - 450 10e3/uL 06/14/2024 7:46 AM MANAGED CARE COORDINATOR [facility] Blood BLOOD SPECIMEN / Unknown Venipuncture / Unknown 06/14/2024 7:08 AM MANAGED CARE COORDINATOR 06/14/2024 7:22 AM MANAGED CARE COORDINATOR us Rl Elias MD LAB - BLOOD ORDER SYD Final Result [facility] [place] [facility] [address] [facility], [address] [phone] * (ABNORMAL) Basic metabolic panel (06/14/2024 7:08 AM MANAGED CARE COORDINATOR) Sodium 136 135 - 145 mmol/L 06/14/2024 7:57 AM MANAGED CARE COORDINATOR [facility] Potassium 4.2 3.4 - 5.3 mmol/L 06/14/2024 7:57 AM MANAGED CARE COORDINATOR [facility] Chloride 107 98 - 107 mmol/L 06/14/2024 7:57 AM MANAGED CARE COORDINATOR [facility] Carbon Dioxide (CO2) 20(L) 22 - 29 mmol/L 06/14/2024 7:57 AM MANAGED CARE COORDINATOR [facility] Anion Gap 9 7 - 15 mmol/L 06/14/2024 7:57 AM MANAGED CARE COORDINATOR [facility] Urea Nitrogen 6.5 6.0 - 20.0 mg/dL 06/14/2024 7:57 AM MANAGED CARE COORDINATOR [facility] Creatinine 0.71 0.51 - 0.95 mg/dL 06/14/2024 7:57 AM MANAGED CARE COORDINATOR [facility] GFR Estimate >90 >60 mL/min/1.7 3m2 06/14/2024 7:57 AM MANAGED CARE COORDINATOR [facility] Comment:eGFR calculated us2020 CKD-EPI equation. Calcium 8.9 8.8 - 10.4 mg/dL 06/14/2024 7:57 AM MANAGED CARE COORDINATOR [facility] Glucose 92 70 - 99 mg/dL 06/14/2024 7:57 AM MANAGED CARE COORDINATOR [facility] Blood BLOOD SPECIMEN / Unknown Venipuncture / Unknown 06/14/2024 7:08 AM MANAGED CARE COORDINATOR 06/14/2024 7:22 AM MANAGED CARE COORDINATOR Rl Elias MD LAB - BLOOD ORDER SYD Final Result [facility] [place] [facility] [address] [facility], [address] [place] [address] * (ABNORMAL) CBC with platelets (06/13/2024 6:32 PM MANAGED CARE COORDINATOR) [facility] WBC Count 15.3(H) 4.0 - 11.0 10e3/uL 06/13/2024 7:10 PM MANAGED CARE COORDINATOR [facility] RBC Count 2.21(L) 3.80 - 5.20 10e6/uL 06/13/2024 7:10 PM MANAGED CARE COORDINATOR [facility] Hemoglobin 6.8(LL) 11.7 - 15.7 g/dL 06/13/2024 7:10 PM MANAGED CARE COORDINATOR [facility] Hematocrit 20.8(L) 35.0 - 47.0 % 06/13/2024 7:10 PM MANAGED CARE COORDINATOR [facility] MCV 94 78 - 100 fL 06/13/2024 7:10 PM MANAGED CARE COORDINATOR [facility] MCH 30.8 26.5 - 33.0 pg 06/13/2024 7:10 PM MANAGED CARE COORDINATOR [facility] MCHC 32.7 31.5 - 36.5 g/dL 06/13/2024 7:10 PM MANAGED CARE COORDINATOR [facility] RDW 19.6(H) 10.0 - 15.0 % 06/13/2024 7:10 PM MANAGED CARE COORDINATOR [facility] Platelet Count 495(H) 150 - 450 10e3/uL 06/13/2024 7:10 PM MANAGED CARE COORDINATOR [facility] Blood CENTRAL VENOUS CATHETER / Unknown VAD(CVC, PICC) / Unknown 06/13/2024 6:32 PM MANAGED CARE COORDINATOR 06/13/2024 6:52 PM MANAGED CARE COORDINATOR us Rl Elias MD LAB - BLOOD ORDER SYD Final Result [facility] [place] [facility] [address] [facility], [address] [place] [phone] * (ABNORMAL) RBC and Platelet Morphology (06/13/2024 6:00 AM MANAGED CARE COORDINATOR) [facility] RBC Morphology Confirmed RBC Indices 06/13/2024 3:45 PM MANAGED CARE COORDINATOR [facility] Platelet Assessment Automated Count Confirmed. Platelet morphology is normal. Automated Count Confirmed. Platelet morphology is normal. 06/13/2024 3:45 PM MANAGED CARE COORDINATOR [facility] Polychromasia Moderate(A) None Seen 06/13/2024 3:45 PM MANAGED CARE COORDINATOR [facility] Sickle Cells Moderate(A) None Seen 06/13/2024 3:45 PM MANAGED CARE COORDINATOR [facility] Target Cells Moderate(A) None Seen 06/13/2024 3:45 PM MANAGED CARE COORDINATOR [facility] Pathologist Review Comments (Blood) Sickle shaped red blood cells are present compatible with patient's history of sickle cell disease. [place] bodies are present compatible with hyposplenic blood picture. There is increased lymphocytes; however, the morphology of lymphocytes is polymorphous. Follow up CBC, diff for resolution of this findings is recommended. Danny Martinez MD on 06/13/2024 at 3:44 PM 06/13/2024 3:45 PM MANAGED CARE COORDINATOR [facility] Comment:This is an appended report. These results have been appended to a previously final verified report. Blood VENOUS LINE / Unknown IVAD (Port) / Unknown 06/13/2024 6:00 AM MANAGED CARE COORDINATOR 06/13/2024 6:16 AM MANAGED CARE COORDINATOR us Laquita Kelley MD LAB - BLOOD ORDERABLES Edited R esult - Final [facility] [address] [facility], [address] [phone] [place] [facility] [address] [facility], [address] [phone] * (ABNORMAL) CBC with platelets and differential (06/13/2024 6:00 AM MANAGED CARE COORDINATOR) WBC Count 17.0(H) 4.0 - 11.0 10e3/uL 06/13/2024 9:51 AM MANAGED CARE COORDINATOR [facility] RBC Count 2.11(L) 3.80 - 5.20 10e6/uL 06/13/2024 9:51 AM MANAGED CARE COORDINATOR [facility] Hemoglobin 6.4(LL) 11.7 - 15.7 g/dL 06/13/2024 9:51 AM MANAGED CARE COORDINATOR [facility] Hematocrit 20.3(L) 35.0 - 47.0 % 06/13/2024 9:51 AM MANAGED CARE COORDINATOR [facility] MCV 96 78 - 100 fL 06/13/2024 9:51 AM MANAGED CARE COORDINATOR [facility] MCH 30.3 26.5 - 33.0 pg 06/13/2024 9:51 AM MANAGED CARE COORDINATOR [facility] MCHC 31.5 31.5 - 36.5 g/dL 06/13/2024 9:51 AM MANAGED CARE COORDINATOR [facility] RDW 19.8(H) 10.0 - 15.0 % 06/13/2024 9:51 AM MANAGED CARE COORDINATOR [facility] Platelet Count 458(H) 150 - 450 10e3/uL 06/13/2024 9:51 AM MANAGED CARE COORDINATOR [facility] % Neutrophils 40 % 06/13/2024 9:51 AM MANAGED CARE COORDINATOR [facility] % Lymphocytes 42 % 06/13/2024 9:51 AM MANAGED CARE COORDINATOR [facility] % Monocytes 13 % 06/13/2024 9:51 AM MANAGED CARE COORDINATOR [facility] % Eosinophils 3 % 06/13/2024 9:51 AM MANAGED CARE COORDINATOR [facility] % Basophils 1 % 06/13/2024 9:51 AM MANAGED CARE COORDINATOR [facility] % Immature Granulocytes 1 % 06/13/2024 9:51 AM MANAGED CARE COORDINATOR [facility] NRBCs per 100 WBC 0 <1 /100 025 9:51 AM MANAGED CARE COORDINATOR [facility] Absolute Neutrophils 6.7 1.6 - 8.3 10e3/uL 06/13/2024 9:51 AM MANAGED CARE COORDINATOR [facility] Absolute Lymphocytes 7.2(H) 0.8 - 5.3 10e3/uL 06/13/2024 9:51 AM MANAGED CARE COORDINATOR [facility] Absolute Monocytes 2.2(H) 0.0 - 1.3 10e3/uL 06/13/2024 9:51 AM MANAGED CARE COORDINATOR [facility] Absolute Eosinophils 0.5 0.0 - 0.7 10e3/uL 06/13/2024 9:51 AM MANAGED CARE COORDINATOR [facility] Absolute Basophils 0.2 0.0 - 0.2 10e3/uL 06/13/2024 9:51 AM MANAGED CARE COORDINATOR [facility] Absolute Immature Granulocytes 0.1 <=0.4 10e3/uL 06/13/2024 9:51 AM MANAGED CARE COORDINATOR [facility] Absolute NRBCs 0.1 10e3/uL 06/13/2024 9:51 AM MANAGED CARE COORDINATOR [facility] Blood VENOUS LINE / Unknown IVAD (Port) / Unknown 06/13/2024 6:00 AM MANAGED CARE COORDINATOR 06/13/2024 6:16 AM MANAGED CARE COORDINATOR Narrative [facility] - 06/13/2024 9:51 AM MANAGED CARE COORDINATOR Sent for review by Pathologist. See Pathologist comments after review. Tech Comments Patient Diagnosis: Sickle Cell crisis Reason for Sending: absolute lymphocyte > 5.4 Laquita Kelley MD LAB - BLOOD ORDERABLES Final Re sult [facility] Special[facility] Lab [address] [facility], [address] [phone] [place] [facility] [address] [facility], [address] * (ABNORMAL) Basic metabolic panel (06/13/2024 5:59 AM MANAGED CARE COORDINATOR) Sodium 135 135 - 145 mmol/L 06/13/2024 6:45 AM MANAGED CARE COORDINATOR [facility] Potassium 4.3 3.4 - 5.3 mmol/L 06/13/2024 6:45 AM MANAGED CARE COORDINATOR [facility] Chloride 105 98 - 107 mmol/L 06/13/2024 6:45 AM MANAGED CARE COORDINATOR [facility] Carbon Dioxide (CO2) 21(L) 22 - 29 mmol/L 06/13/2024 6:45 AM MANAGED CARE COORDINATOR [facility] Anion Gap 9 7 - 15 mmol/L 06/13/2024 6:45 AM MANAGED CARE COORDINATOR [facility] Urea Nitrogen 4.9(L) 6.0 - 20.0 mg/dL 06/13/2024 6:45 AM MANAGED CARE COORDINATOR [facility] Creatinine 0.70 0.51 - 0.95 mg/dL 06/13/2024 6:45 AM MANAGED CARE COORDINATOR [facility] GFR Estimate >90 >60 mL/min/1.7 3m2 06/13/2024 6:45 AM MANAGED CARE COORDINATOR [facility] Comment:eGFR calculated us2020 CKD-EPI equation. Calcium 8.7(L) 8.8 - 10.4 mg/dL 06/13/2024 6:45 AM MANAGED CARE COORDINATOR [facility] Glucose 100(H) 70 - 99 mg/dL 06/13/2024 6:45 AM MANAGED CARE COORDINATOR [facility] Blood VENOUS LINE / Unknown IVAD (Port) / Unknown 06/13/2024 5:59 AM MANAGED CARE COORDINATOR 06/13/2024 6:16 AM MANAGED CARE COORDINATOR us Laquita Kelley MD LAB - BLOOD ORDERABLES Final Re sult [facility] [place] [facility] [address] [facility], [address] [place] [phone] * Respiratory Panel PCR (06/12/2024 9:34 PM MANAGED CARE COORDINATOR) Adenovirus Not Detected Not Detected 06/12/2024 11:53 PM MANAGED CARE COORDINATOR [facility] Coronavirus Not Detected Not Detected 06/12/2024 11:53 PM MANAGED CARE COORDINATOR [facility] Comment:This test detects Co ronavirus 229E, HKU1, NL63 and OC43 but does not distinguish between them. It does not detect MERS ( Respiratory Syndrome), SARS (Severe Acute Respiratory Syndrome) or 2019-nCoV (Novel 2019) Coronavirus. Human Metapneumovirus Not Detected Not Detected 06/12/2024 11:53 PM MANAGED CARE COORDINATOR [facility] Human Rhin/Enterovirus Not Detected Not Detected 06/12/2024 11:53 PM MANAGED CARE COORDINATOR [facility] Influenza A Not Detected Not Detected 06/12/2024 11:53 PM MANAGED CARE COORDINATOR [facility] Influenza A, H1 Not Detected Not Detected 06/12/2024 11:53 PM MANAGED CARE COORDINATOR [facility] Influenza A 2009 H1N1 Not Detected Not Detected 06/12/2024 11:53 PM MANAGED CARE COORDINATOR [facility] Influenza A, H3 Not Detected Not Detected 06/12/2024 11:53 PM MANAGED CARE COORDINATOR [facility] Influenza B Not Detected Not Detected 06/12/2024 11:53 PM MANAGED CARE COORDINATOR [facility] Parainfluenza Virus 1 Not Detected Not Detected 06/12/2024 11:53 PM MANAGED CARE COORDINATOR [facility] Parainfluenza Virus 2 Not Detected Not Detected 06/12/2024 11:53 PM MANAGED CARE COORDINATOR [facility] Parainfluenza Virus 3 Not Detected Not Detected 06/12/2024 11:53 PM MANAGED CARE COORDINATOR [facility] Parainfluenza Virus 4 Not Detected Not Detected 06/12/2024 11:53 PM MANAGED CARE COORDINATOR [facility] Respiratory Syncytial Virus A Not Detected Not Detected 06/12/2024 11:53 PM MANAGED CARE COORDINATOR [facility] Respiratory Syncytial Virus B Not Detected Not Detected 06/12/2024 11:53 PM MANAGED CARE COORDINATOR [facility] Chlamydia Pneumoniae Not Detected Not Detected 06/12/2024 11:53 PM MANAGED CARE COORDINATOR [facility] Mycoplasma Pneumoniae Not Detected Not Detected 06/12/2024 11:53 PM MANAGED CARE COORDINATOR [facility] Swab NASOPHARYNGEAL STRUCTURE / Unknown Non-blood Collection / Unknown 06/12/2024 9:34 PM MANAGED CARE COORDINATOR 06/12/2024 9:47 PM MANAGED CARE COORDINATOR Narrative [facility] - 06/12/2024 11:53 PM MANAGED CARE COORDINATOR The e[facility] Respiratory Panel is a qualitative nucleic acid, multiplex, in vitro diagnostic test for the simultaneous detection and identification of multiple respiratory viral and bacterial nucleic acids in nasopharyngeal swabs collected in viral transport media from individual exhibiting signs and symptoms of respiratory infection. The assay has received FDA approval for the testing of nasopharyngeal ([employer]) swabs only. This test is used for clinical purposes and should not be regarded as investigational or for research. This laboratory is certified under the Clinical Laboratory Improvement Amendments of 1988 (CLIA-88) as qualified to perform high complexity clinical laboratory testing. Abdelrahman Goddard MD LAB - MICRO GENERAL ORDERABLES Final Result [facility] Inf. Diseases Diag. Lab [address] [facility], [address] [place] [id number] * Blood Culture Peripheral Blood (06/12/2024 8:46 PM MANAGED CARE COORDINATOR) Culture No Growth 06/17/2024 9:31 PM MANAGED CARE COORDINATOR [facility] Blood BLOOD SPECIMEN / Unknown Venipuncture / Unknown 06/12/2024 8:46 PM MANAGED CARE COORDINATOR 06/12/2024 8:53 PM MANAGED CARE COORDINATOR Narrative [facility] - 06/17/2024 9:31 PM MANAGED CARE COORDINATOR Only an Aerobic Blood Culture Bottle was collected, interpret results with caution. us Abdelrahman Goddard MD LAB - MICRO GENERAL ORDERABLES Final Result [facility] Inf. Diseases Diag. Lab [address] [facility], [address] * Blood Culture Peripheral Blood (06/12/2024 8:46 PM MANAGED CARE COORDINATOR) Culture No Growth 06/17/2024 9:31 PM MANAGED CARE COORDINATOR [facility] Blood BLOOD SPECIMEN / Unknown Venipuncture / Unknown 06/12/2024 8:46 PM MANAGED CARE COORDINATOR 06/12/2024 8:53 PM MANAGED CARE COORDINATOR us Abdelrahman Goddard MD LAB - MICRO GENERAL ORDERABLES Final Result Performing Organization Address City/[facility]/ZIP Co de Phone Number [facility] Inf. Diseases Diag. Lab [address] [facility], [address] * XR Chest 2 Views (06/12/2024 7:38 PM MANAGED CARE COORDINATOR) Anatomical Region Laterality Modality Chest Computed Radiogr aphy 06/12/2024 7:38 PM MANAGED CARE COORDINATOR Impressions 06/12/2024 7:42 PM MANAGED CARE COORDINATOR IMPRESSION: A few faint peripheral reticulonodular opacities in the mid and lower lungs again seen. Lungs otherwise clear. No pleural effusion. No pneumothorax. Borderline cardiac enlargement unchanged. Port anterior right chest wall with right IJ central venous catheter tip low SVC. Port anterior left chest wall with left IJ central venous catheter tip low SVC. Narrative 06/12/2024 7:42 PM MANAGED CARE COORDINATOR EXAM: XR CHEST 2 VIEWS LOCATION: [facility] DATE: 06/12/2024 INDICATION: CP COMPARISON: 06/03/2024, 05/27/2024 Procedure Note Surendra Hou MD - 06/12/2024 EXAM: XR CHEST 2 VIEWS LOCATION: [facility] DATE: 06/12/2024 INDICATION: CP COMPARISON: 06/03/2024, 05/27/2024 IMPRESSION: A few faint peripheral reticulonodular opacities in the midand lower lungs again seen. Lungs otherwise clear. No pleural effusion. Nopneumothorax. Borderline cardiac enlargement unchanged. Port anteriorright chest wall with right IJ central venous catheter tip low SVC. Port anterior left chest wall withleft IJ central venous catheter tip low SVC. Abdelramhan Goddard MD IMG DIAGNOSTIC IMAGING ORDERAB LES Final Result * Adult Type and Screen (06/12/2024 7:17 PM MANAGED CARE COORDINATOR) Pathologist [facility] [place] ABO/RH(D) A POS 06/13/2024 9:17 AM MANAGED CARE COORDINATOR [facility] Antibody Screen Negative Negative 06/13/2024 9:17 AM MANAGED CARE COORDINATOR [facility] Comment:Current antibody scr een is negative. Patient has a history of antibody(ies). A delay in compatible red blood cells may occur. SPECIMEN EXPIRATION DATE [id number] 06/13/2024 9:17 AM MANAGED CARE COORDINATOR [facility] Blood BLOOD SPECIMEN / Unknown Venipuncture / Unknown 06/12/2024 7:17 PM MANAGED CARE COORDINATOR 06/12/2024 7:32 PM MANAGED CARE COORDINATOR Carmen Aviles PA-C LAB - BLOOD BANK TEST ORDER Final Result BLOOD BANK [address] [place] [id number] * (ABNORMAL) RBC and Platelet Morphology (06/12/2024 7:17 PM MANAGED CARE COORDINATOR) Pathologist [facility] [place] RBC Morphology Confirmed RBC Indices 06/12/2024 8:57 PM MANAGED CARE COORDINATOR [facility] Platelet Assessment Automated Count Confirmed. Platelet morphology is normal. Automated Count Confirmed. Platelet morphology is normal. 06/12/2024 8:57 PM MANAGED CARE COORDINATOR [facility] Polychromasia Slight(A) None Seen 06/12/2024 8:57 PM MANAGED CARE COORDINATOR [facility] Sickle Cells Moderate(A) None Seen 06/12/2024 8:57 PM MANAGED CARE COORDINATOR [facility] Target Cells Moderate(A) None Seen 06/12/2024 8:57 PM MANAGED CARE COORDINATOR [facility] Blood BLOOD SPECIMEN / Unknown Venipuncture / Unknown 06/12/2024 7:17 PM MANAGED CARE COORDINATOR 06/12/2024 7:32 PM MANAGED CARE COORDINATOR us Abdelrahman Goddard MD LAB - BLOOD ORDERABLES Final R esult [facility] [place] Core Lab [address] [facility], [address] [phone] * (ABNORMAL) CBC with platelets and differential (06/12/2024 7:17 PM MANAGED CARE COORDINATOR) Pathologist [facility] [place] WBC Count 12.5(H) 4.0 - 11.0 10e3/uL 06/12/2024 7:54 PM MANAGED CARE COORDINATOR [facility] RBC Count 2.44(L) 3.80 - 5.20 10e6/uL 06/12/2024 7:54 PM MANAGED CARE COORDINATOR [facility] Hemoglobin 7.5(L) 11.7 - 15.7 g/dL 06/12/2024 7:54 PM MANAGED CARE COORDINATOR [facility] Hematocrit 22.2(L) 35.0 - 47.0 % 06/12/2024 7:54 PM MANAGED CARE COORDINATOR [facility] MCV 91 78 - 100 fL 06/12/2024 7:54 PM MANAGED CARE COORDINATOR [facility] MCH 30.7 26.5 - 33.0 pg 06/12/2024 7:54 PM MANAGED CARE COORDINATOR [facility] MCHC 33.8 31.5 - 36.5 g/dL 06/12/2024 7:54 PM MANAGED CARE COORDINATOR [facility] RDW 19.5(H) 10.0 - 15.0 % 06/12/2024 7:54 PM MANAGED CARE COORDINATOR [facility] Platelet Count 542(H) 150 - 450 10e3/uL 06/12/2024 7:54 PM MANAGED CARE COORDINATOR [facility] % Neutrophils 57 % 06/12/2024 7:54 PM MANAGED CARE COORDINATOR [facility] % Lymphocytes 24 % 06/12/2024 7:54 PM MANAGED CARE COORDINATOR [facility] % Monocytes 16 % 06/12/2024 7:54 PM MANAGED CARE COORDINATOR [facility] % Eosinophils 1 % 06/12/2024 7:54 PM MANAGED CARE COORDINATOR [facility] % Basophils 1 % 06/12/2024 7:54 PM MANAGED CARE COORDINATOR [facility] % Immature Granulocytes 0 % 06/12/2024 7:54 PM MANAGED CARE COORDINATOR [facility] NRBCs per 100 WBC 1(H) <1 /100 025 7:54 PM MANAGED CARE COORDINATOR [facility] Absolute Neutrophils 7.1 1.6 - 8.3 10e3/uL 06/12/2024 7:54 PM MANAGED CARE COORDINATOR [facility] Absolute Lymphocytes 3.0 0.8 - 5.3 10e3/uL 06/12/2024 7:54 PM MANAGED CARE COORDINATOR [facility] Absolute Monocytes 2.0(H) 0.0 - 1.3 10e3/uL 06/12/2024 7:54 PM MANAGED CARE COORDINATOR [facility] Absolute Eosinophils 0.2 0.0 - 0.7 10e3/uL 06/12/2024 7:54 PM MANAGED CARE COORDINATOR [facility] Absolute Basophils 0.2 0.0 - 0.2 10e3/uL 06/12/2024 7:54 PM MANAGED CARE COORDINATOR [facility] Absolute Immature Granulocytes 0.1 <=0.4 10e3/uL 06/12/2024 7:54 PM MANAGED CARE COORDINATOR [facility] Absolute NRBCs 0.1 10e3/uL 06/12/2024 7:54 PM MANAGED CARE COORDINATOR [facility] Blood BLOOD SPECIMEN / Unknown Venipuncture / Unknown 06/12/2024 7:17 PM MANAGED CARE COORDINATOR 06/12/2024 7:32 PM MANAGED CARE COORDINATOR us Abdelrahman Goddard MD LAB - BLOOD ORDERABLES Final R esult [facility] [place] Core Lab [address] [facility], [address] [phone] * (ABNORMAL) Blood gas venous (06/12/2024 7:17 PM MANAGED CARE COORDINATOR) pH Venous 7.38 7.32 - 7.43 06/12/2024 7:40 PM MANAGED CARE COORDINATOR [facility] pCO2 Venous 42 40 - 50 mm Hg 06/12/2024 7:40 PM MANAGED CARE COORDINATOR [facility] pO2 Venous 35 25 - 47 mm Hg 06/12/2024 7:40 PM MANAGED CARE COORDINATOR [facility] Bicarbonate Venous 24 21 - 28 mmol/L 06/12/2024 7:40 PM MANAGED CARE COORDINATOR [facility] Base Excess/Deficit Venous -0.9 -3.0 - 3.0 mmol/L 06/12/2024 7:40 PM MANAGED CARE COORDINATOR [facility] FIO2 21 JARET 06/12/2024 7:40 PM MANAGED CARE COORDINATOR [facility] Oxyhemoglobin Venous 61(L) 70 - 75 % 06/12/2024 7:40 PM MANAGED CARE COORDINATOR [facility] O2 Sat, Venous 63.9(L) 70.0 - 75.0 % 06/12/2024 7:40 PM MANAGED CARE COORDINATOR [facility] Blood, venous VENOUS LINE / Unknown Venipuncture / Unknown 06/12/2024 7:17 PM MANAGED CARE COORDINATOR 06/12/2024 7:30 PM MANAGED CARE COORDINATOR Narrative [facility] - 06/12/2024 7:40 PM MANAGED CARE COORDINATOR In healthy individuals, oxyhemoglobin (O2Hb) and oxygen saturation (SO2) are approximately equal. In the presence of dyshemoglobins, oxyhemoglobin can be considerably lower than oxygen saturation. us Abdelrahman Goddard MD LAB - BLOOD ORDERABLES Final R esult [facility] LAB[facility] Core Lab [address] [facility], [address] [phone] * Troponin T, High Sensitivity (06/12/2024 7:17 PM MANAGED CARE COORDINATOR) Pathologist [facility] [place] Troponin T, High Sensitivity <6 <=14 ng/L 06/12/2024 8:03 PM MANAGED CARE COORDINATOR [facility] Comment: Either a High Sensitivity [...] Unknown Venipuncture / Unknown 06/12/2024 7:17 PM MANAGED CARE COORDINATOR 06/12/2024 7:32 PM MANAGED CARE COORDINATOR us Abdelrahman Goddard MD LAB - BLOOD ORDERABLES Final R esult [facility] [place] [facility] [address] [facility], [address] [phone] * (ABNORMAL) Basic metabolic panel (06/12/2024 7:17 PM MANAGED CARE COORDINATOR) Sodium 139 135 - 145 mmol/L 06/12/2024 8:03 PM MANAGED CARE COORDINATOR [facility] Potassium 4.3 3.4 - 5.3 mmol/L 06/12/2024 8:03 PM MANAGED CARE COORDINATOR [facility] Chloride 109(H) 98 - 107 mmol/L 06/12/2024 8:03 PM MANAGED CARE COORDINATOR [facility] Carbon Dioxide (CO2) 21(L) 22 - 29 mmol/L 06/12/2024 8:03 PM MANAGED CARE COORDINATOR [facility] Anion Gap 9 7 - 15 mmol/L 06/12/2024 8:03 PM MANAGED CARE COORDINATOR [facility] Urea Nitrogen 5.9(L) 6.0 - 20.0 mg/dL 06/12/2024 8:03 PM MANAGED CARE COORDINATOR [facility] Creatinine 0.61 0.51 - 0.95 mg/dL 06/12/2024 8:03 PM MANAGED CARE COORDINATOR [facility] GFR Estimate >90 >60 mL/min/1.7 3m2 06/12/2024 8:03 PM MANAGED CARE COORDINATOR [facility] Comment:eGFR calculated 2020 CKD-EPI equation. Calcium 9.4 8.8 - 10.4 mg/dL 06/12/2024 8:03 PM MANAGED CARE COORDINATOR [facility] Glucose 97 70 - 99 mg/dL 06/12/2024 8:03 PM MANAGED CARE COORDINATOR [facility] Blood BLOOD SPECIMEN / Unknown Venipuncture / Unknown 06/12/2024 7:17 PM MANAGED CARE COORDINATOR 06/12/2024 7:32 PM MANAGED CARE COORDINATOR us Abdelrahman Goddard MD LAB - BLOOD ORDERABLES Final R esult [facility] [place] [facility] Lab [address] [facility], [address] * (ABNORMAL) INR (06/12/2024 7:17 PM MANAGED CARE COORDINATOR) INR 1.37(H) 0.85 - 1.15 06/12/2024 7:54 PM MANAGED CARE COORDINATOR U LABORATORY Blood BLOOD SPECIMEN / Unknown Venipuncture / Unknown 06/12/2024 7:17 PM MANAGED CARE COORDINATOR 06/12/2024 7:32 PM MANAGED CARE COORDINATOR Abdelrahman Goddard MD LAB - BLOOD ORDERABLES Final R esult U LABORATORY [facility] Core Lab [address] [facility], Room [address] [place] [address] * EKG 12-lead, tracing only (06/12/2024 6:37 PM MANAGED CARE COORDINATOR) Systolic Blood Pressure mmHg RADIOLOGY RESULTS Diastolic Blood Pressure mmHg RADIOLOGY RESULTS Ventricular Rate 94 BPM RAD IOLOGY RESULTS Atrial Rate 94 BPM RADIOLOG Y RESULTS IL Interval 146 ms RADIOLOG Y RESULTS QRS Duration 84 ms RADIOLO GY RESULTS QT 346 ms RADIOLOGY RESULTS QTc 432 ms RADIOLOGY RESULTS P [place] 31 degrees RADIOLOGY RESULTS R AXIS 85 degrees RADIOLOGY RESULTS T [place] 36 degrees RADIOLOGY RESULTS Interpretation ECG Sinus rhythm Normal ECG Unconfirmed report - interpretation of this ECG is computer generated - see medical record for final interpretation Confirmed by - EMERGENCY ROOM, PHYSICIAN ([id number]), assignment desk editor CLAUDIO ASTORGA ([id number]) on 06/13/2024 7:17:59 AM RADIOLOGY RESULTS 06/12/2024 6:37 PM MANAGED CARE COORDINATOR 06/13/2024 7:17 AM MANAGED CARE COORDINATOR Alex Morton MD ECG ORDERABLES Edited Resul [...] within 2 weeks. $Given 06/15/2024 8:05 AM MANAGED CARE COORDINATOR 2 puffs $Given 06/14/2024 7:59 PM MANAGED CARE COORDINATOR 2 puffs $Given 06/14/2024 4:39 PM MANAGED CARE COORDINATOR 2 puffs albuterol (PROVENTIL HFA/VENTOLIN HFA) inhaler [...] Indications: SepsisIndications:Sepsis $New Bag 06/12/2024 9:31 PM MANAGED CARE COORDINATOR 500 mg 250 mL /hr azithromycin (ZITHROMAX) 500 mg in sodium chloride 0.9 % 250 mL intermittent infusion Routine, 500 mg, Intravenous, EVERY 24 HOURS, First dose on Wed06/13/24 at 2100, Indications: Acute chest syndromeIndications:Acute chest syndrome $New Bag 06/13/2024 10:04 PM MANAGED CARE COORDINATOR 500 mg azithromycin (ZITHROMAX) tablet 500 mg Routine, 500 mg, Oral, DAILY, First dose on Wed06/14/24 at 1200, Indications: Community Acquired PneumoniaIndications:Community Acquired Pneumonia $Given 06/15/2024 8:05 AM MANAGED CARE COORDINATOR 500 mg $Given 06/14/2024 12:38 PM MANAGED CARE COORDINATOR 500 mg cefTRIAXone (ROCEPHIN) 1 g vial to attach to NS 100 mL bag for ADULTS or NS 50 mL bag for PEDS STAT, 1 g, Intravenous, ONCE, On Wed06/12/24 at 2005, For 1 dose, Lactated Ringer's solution is not compatible with ceftriaxone for injection, Indications: SepsisIndications:Sepsis $New Bag 06/12/2024 8:39 PM MANAGED CARE COORDINATOR 1 g cefTRIAXone (ROCEPHIN) 2 g vial to attach to NS 100 ml bag for ADULTS or NS 50 ml bag for PEDS Routine, 2 g, Intravenous, EVERY 24 HOURS, First dose on Wed06/13/24 at 2000, Lactated Ringer's solution is not compatible with ceftriaxone for injection, Indications: Acute chest syndromeIndications:Acute chest syndrome $New Bag 06/14/2024 8:00 PM MANAGED CARE COORDINATOR 2 g $New Bag 06/13/2024 8:16 PM MANAGED CARE COORDINATOR 2 g diclofenac (VOLTAREN) 1 % topical gel 2 g 2 g, Topical, 4 TIMES DAILY PRN, inflammatory pain, Starting on Wed06/14/24 at 0912, Apply to area of pain. Use supplied dosing card to measure dose. $Given 06/15/2024 8:10 AM MANAGED CARE COORDINATOR 2 g $Given 06/14/2024 12:38 PM MANAGED CARE COORDINATOR 2 g diphenhydrAMINE (BENADRYL) capsule 25 mg 25 mg, Oral, EVERY 6 HOURS PRN, itching, Starting on Wed06/12/24 at 2139 $Given 06/14/2024 12:38 PM MANAGED CARE COORDINATOR 25 mg $Given 06/13/2024 10:54 PM MANAGED CARE COORDINATOR 25 mg $Given 06/13/2024 12:12 PM MANAGED CARE COORDINATOR 25 mg diphenhydrAMINE (BENADRYL) injection 25 mg 25 mg, Intravenous, EVERY 6 HOURS PRN, itching, Starting on Wed06/12/24 at 2139 $Given 06/13/2024 5:39 AM MANAGED CARE COORDINATOR 25 mg $Given 06/12/2024 10:41 PM MANAGED CARE COORDINATOR 25 mg enoxaparin ANTICOAGULANT (LOVENOX) injection 40 mg 40 mg, Subcutaneous, EVERY 24 HOURS, First dose on Wed06/13/24 at 0800, Contact provider if platelet count drops by 50% or more after enoxaparin initiation OR if platelet count falls below 50 x 10e3/uL $Given 06/15/2024 7:59 AM MANAGED CARE COORDINATOR 40 mg $Given 06/14/2024 8:29 AM MANAGED CARE COORDINATOR 40 mg $Given 06/13/2024 7:49 AM MANAGED CARE COORDINATOR 40 mg FLUoxetine (PROzac) capsule 10 mg 10 mg, Oral, DAILY, First dose on Wed06/13/24 at 0800 $Given 06/14/2024 2:37 PM MANAGED CARE COORDINATOR 10 mg $Given 06/13/2024 7:50 AM MANAGED CARE COORDINATOR 10 mg folic acid (FOLVITE) tablet 1 mg 1 mg, Oral, DAILY, First dose on Wed06/13/24 at 0800 $Given 06/15/2024 8:05 AM MANAGED CARE COORDINATOR 1 mg $Given 06/14/2024 8:29 AM MANAGED CARE COORDINATOR 1 mg $Given 06/13/2024 7:49 AM MANAGED CARE COORDINATOR 1 mg heparin lock flush 10 unit/mL [...] For 1 dose $Given 06/12/2024 7:24 PM MANAGED CARE COORDINATOR 2 mg hydromorphone (DILAUDID) injection 2 mg 2 mg, Intravenous, ONCE, On Wed06/12/24 at 2010, For 1 dose $Given 06/12/2024 8:14 PM MANAGED CARE COORDINATOR 2 mg hydromorphone (DILAUDID) injection 2 mg 2 mg, Intravenous, EVERY 3 HOURS PRN, moderate pain, IF patient cannot take oral opioid OR IF pain not managed with non-pharmacological, non-opioid, or oral opioid interventions if ordered, Starting on Wed06/12/24 at 2237, May use concomitant with non-opioid analgesics. $Given 06/12/2024 11:31 PM MANAGED CARE COORDINATOR 2 mg hydromorphone (DILAUDID) injection 2 mg 2 mg, Intravenous, ONCE, On Wed06/12/24 at 2135, For 1 dose $Given 06/12/2024 9:46 PM MANAGED CARE COORDINATOR 2 mg hydromorphone (DILAUDID) injection 2 mg 2 mg, Intravenous, EVERY 2 HOURS PRN, moderate pain, IF patient cannot take oral opioid OR IF pain not managed with non-pharmacological, non-opioid, or oral opioid interventions if ordered, Starting on Wed06/13/24 at 0132, May use concomitant with non-opioid analgesics. $Given 06/14/2024 12:38 PM MANAGED CARE COORDINATOR 2 mg $Given 06/14/2024 10:31 AM MANAGED CARE COORDINATOR 2 mg $Given 06/14/2024 8:29 AM MANAGED CARE COORDINATOR 2 mg hydromorphone (DILAUDID) injection 2 mg 2 mg, Intravenous, EVERY 2 HOURS, First dose (after last modification) on Wed06/14/24 at 1415, May use concomitant with non-opioid analgesics. $Given 06/15/2024 7:58 AM MANAGED CARE COORDINATOR 2 mg $Given 06/15/2024 6:01 AM MANAGED CARE COORDINATOR 2 mg $Given 06/15/2024 4:11 AM MANAGED CARE COORDINATOR 2 mg hydroxyurea (HYDREA) capsule 1,000 mg 1,000 mg, Oral, 2 TIMES DAILY, First dose on Wed06/12/24 at 2330, Indications: sickle cell anemia, Do not crush May require hepatic and/or renal dose or frequency adjustments. See reference link for guidelines.Indications:sickle cell anemia $Given 06/15/2024 8:06 AM MANAGED CARE COORDINATOR 1,000 mg $Given 06/14/2024 8:00 PM MANAGED CARE COORDINATOR 1,000 mg $Given 06/14/2024 8:30 AM MANAGED CARE COORDINATOR 1,000 mg lactated ringers infusion at 75 mL/hr, Intravenous, CONTINUOUS, Starting on Wed06/12/24 at 2240, Until Wed06/13/24 at 0839 Rate/Dose Verify 06/13/2024 7:02 AM MANAGED CARE COORDINATOR 75 mL/hr Rate/Dose Verify 06/13/2024 4:52 AM MANAGED CARE COORDINATOR 75 mL/h r Rate/Dose Verify 06/13/2024 1:35 AM MANAGED CARE COORDINATOR 75 mL/h r Lidocaine (LIDOCARE) 4 % [...] Wed06/12/24 at 2138 $Given 06/13/2024 1:28 AM MANAGED CARE COORDINATOR 5 mg menthol (ICY HOT) 5 % [...] Liquid not required. $Given 06/14/2024 9:20 AM MANAGED CARE COORDINATOR 4 mg ondansetron (ZOFRAN) injection 4 mg 4 mg, Intravenous, ONCE, Administer over 2-5 Minutes, On Wed06/12/24 at 1850, For 1 dose $Given 06/12/2024 7:24 PM MANAGED CARE COORDINATOR 4 mg ondansetron (ZOFRAN) injection 4 mg 4 mg, Intravenous, EVERY 6 HOURS PRN, nausea/vomiting - 1st line, Administer over 2-5 Minutes, Starting on Wed06/12/24 at 2237, Give IF patient unable to tolerate oral medication. This is Step 1 of nausea and vomiting management. If nausea not resolved in 15 minutes, go to Step 2 prochlorperazine (COMPAZINE). $Given 06/15/2024 4:19 AM MANAGED CARE COORDINATOR 4 mg senna-docusate (SENOKOT-S/PERICOLACE) 8.6-50 MG per [...] IV dormant line $Given 06/15/2024 6:32 AM MANAGED CARE COORDINATOR 3 mLs $Given 06/13/2024 8:37 PM MANAGED CARE COORDINATOR 3 mLs $Given 06/13/2024 2:12 PM MANAGED CARE COORDINATOR 3 mLs sodium chloride (PF) 0.9% PF flush 3 mL 3 mL, Intracatheter, EVERY 1 MIN PRN, line flush, other, to ensure patency or to lock dormant line, Starting on Wed06/12/24 at 2237 $Given 06/14/2024 2:4 2 PM MANAGED CARE COORDINATOR 3 mLs $Given 06/14/2024 8:30 AM MANAGED CARE COORDINATOR 3 mLs $Given 06/14/2024 1:32 AM MANAGED CARE COORDINATOR 3 mLs sodium chloride 0.9% BOLUS 1,000 mL Intravenous, 1,000 mL, ONCE, at 1,000 mL/hr, Administer over 1 Hours, On Wed06/12/24 at 1850, For 1 dose $New Bag 06/12/2024 7:22 PM MANAGED CARE COORDINATOR 1,000 mLs 1000 mL/hr documented in this encounter Active and Recently Administered Medications Times are shown in MANAGED CARE COORDINATOR. Scheduled Medication Order 06/13/2024 06/14/2024 06/15/2024 albuterol [...] Charles RN) 0805 ($Given - Provider: Clay Avina, SOFIA) cefTRIAXone (ROCEPHIN) 2 g vial to attach to NS 100 ml bag for ADULTS or NS 50 ml bag for PEDS Routine, 2 g, Intravenous, EVERY 24 HOURS, First dose on Wed06/13/24 at 2000, Lactated Ringer's solution is not compatible with ceftriaxone for injection, Indications: Acute chest syndrome 2016 ($New Bag - Provider: Geovanna Dean RN)2244 (Stopped - Provider: Geovanna Dean RN) 1999 ($New Bag - Provider: Kathy Levy, SOFIA) 0142 (Stopped - Provider: Kathy Levy, SFOIA) enoxaparin ANTICOAGULANT (LOVENOX) injection 40 mg 40 [...] Ravi RN) 0829 ($Given - Provider: Clay Avina, SOFIA) 0805 ($Given - Provider: Clay Avina RN) [...] EVERY 28 DAYS, First dose on [place] 06/15/24 at 0910, To de-access each port in [...] Dean RN) 0830 ($Given - Provider: Clay Quintard, RN)2000 ($Given - Provider: Kathy Levy RN) 0806 ($Given - Provider: Clay Avina, SOFIA) Lidocaine (LIDOCARE) 4 % Patch 1 patch [...] IV Infusing)1412 ($Given - Provider: Kiki Caal, SOFIA)2037 ($Given - Provider: Geovanna Dean, SOFAI) 0640 (Not Given - Provider: Geovanna Dean [...] 0135 (Rate/Dose Verify - Provider: Shauna Cuadra, SOFIA)0452 (Rate/Dose Verify - Provider: Shauna Cuadra RN)0702 (Rate/Dose Verify - Provider: Shauna Cuadra, SOFIA)1215 [...] Huang RN)2254 (See Alternative - Provider: Geovanna Dean, SOFIA) 1238 (See Alternative - Provider: Ang Charles [...] Xu Ravi RN)1212 ($Given - Provider: Yolanda Huang, SOFIA)1411 ($Given - Provider: Kiki Caal, SOFIA)1621 ($Given - Provider: Kiki Caal, RN)1833 ($Given - Provider: Kiki Caal, RN)2033 ($Given - Provider: Geovanna Dean RN)2254 ($Given - Provider: Geovanna Dean, SOFIA) 0132 ($Given - Provider: Geovanna Dean RN)0404 ($Given - Provider: Geovanna Dean RN)0625 ($Given - Provider: Geovanna Dean RN)0829 ($Given - Provider: Clay Avina, RN)1031 ($Given [...] at 2138 0128 ($Given - Provider: Shauna Cuadar RN) menthol (ICY HOT) 5 % patch [...] 0920 ($Given - Provider: Clay Avina RN) 0526 (See Alternative - Provider: Kathy Levy, SOFIA) [...] (See Alternative - Provider: Clay Avina RN) 0414 ($Given - Provider: Kathy Levy RN) senna-docusate [...] stools. documented in this encounter Care Teams Hot Stick Worker Relationship Specialty Start Date End Date No Ref-Primary, Physician PCP - General 03/15/24 06/17/24 Mor Ramsey Medical Student 04/03/24 Case Samuel MD [address] [place] [address] [address], [address] [place] [address] Assigned Pediatric Specialist Provider 05/18/24 Juhi Benson, RN Specialty Ceramic Tile Installation Helper Hematology & Oncology 05/29/24 documented as of this encounter
--- OUTSIDE RECORDS SUMMARY | 2024-06-24 20:12 | XMS_ITS | Clinical Summary ---
Author Organization [place] Address [address] [place] [id number] Care Team Providers Care Wire Spinner Name Role Phone Roxy Mor Unavailable Unavailable Case Samuel MD Unavailable [phone] Juhi Benson RN Unavailable Unavailable Veronica Joseph MD Primary Care Provider [phone] Allergies Active Allergy Reactions Criticality Noted Date [...] Active naloxone (NARCAN) 4 MG/0.1ML nasal spray [place] 1 spray (4 mg) into one nostril [...] background: 29 yo F, recently moved from [place] Sickle Cell Disease History Primary Medical Record Administrator/UNDERCOATER/PA: Lizzie Genotype: SS Acute Pain Crisis Treatment: [...] Encounters Date Type Department Care Team Description 06/24/2024 9:28 AM CAR DISTRIBUTOR - 06/24/2024 1:05 PM CAR DISTRIBUTOR Emergency [facility] Emergency Department [address] [place] [address] Richar Mahajan MD Sickle cell disease with crisis (H) Discharge Disposition: Home or Self Care 06/24/2024 Travel 06/23/2024 6:03 PM CAR DISTRIBUTOR - 06/23/2024 9:47 PM [facility] Emergency [facility] Emergency Department [address] [place] [phone] Dayna Crane MD Sickle cell disease with crisis (H) Discharge Disposition: Home or Self Care 06/23/2024 Travel 06/22/2024 5:23 PM CAR DISTRIBUTOR - 06/22/2024 10:02 PM CAR DISTRIBUTOR Emergency [facility] Emergency Department [address] [place] [address] Lynne Varner MD Sickle cell anemia with crisis (H) Discharge Disposition: Home or Self Care 06/22/2024 Travel 06/16/2024 4:46 PM CAR DISTRIBUTOR - 06/20/2024 11:00 AM CAR DISTRIBUTOR Hospital Encounter [facility] 7C Med Surg [address] [place] [address] Abimael Schofield MD Pal, Suman, MD Duffy, Briar, MD Sickle cell pain crisis (H) Discharge Disposition: Home or Self Care 06/16/2024 Travel 06/15/[address] [phone] Case Samuel MD Refill Request 06/12/2024 6:38 PM CAR DISTRIBUTOR - 06/15/2024 10:48 AM CAR DISTRIBUTOR Hospital Encounter [facility] Emergency Department [address] [place] [phone] Abdelrahman Goddard MD Beacom, Evan, DO Duffy, Briar, MD 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); Acute chest pain; Sickle cell pain crisis (H); Pneumonia of right lower lobe due to infectious organism Discharge Disposition: Home or Self Care 06/12/2024 Travel 06/11/2024 9:02 PM CAR DISTRIBUTOR - 06/12/2024 1:57 AM CAR DISTRIBUTOR Emergency [facility] Emergency Room [address] [place] [phone] Iliana Weber MD Sickle cell pain crisis (H) Discharge Disposition: Home or Self Care 06/11/2024 Travel 06/09/2024 11:30 AM CAR DISTRIBUTOR Infusion Therapy Visit [facility] Medical [address] [place] [phone] Case Samuel MD Sickle cell pain crisis (H) (Primary Dx) 06/09/2024 Travel 06/07/2024 1:30 PM CAR DISTRIBUTOR Infusion Therapy Visit [facility] [address] [phone] Case Samuel MD Fever (Primary Dx); Sickle cell pain crisis (H) 06/07/2024 10:00 AM CAR DISTRIBUTOR - 06/07/2024 10:45 AM CAR DISTRIBUTOR Emergency [facility] Emergency Room [address] [place] [phone] Bernabe Farley MD Chest pain, unspecified type; Fever, unspecified fever cause; Left against medical advice Discharge Disposition: Home or Self Care 06/07/2024 Travel 06/06/2024 9:41 AM CAR DISTRIBUTOR - 06/06/2024 1:29 PM [facility] Emergency [facility] Emergency Room [address] [place] [phone] Marilia Summers MD Sickle cell pain crisis (H) Discharge Disposition: Home or Self Care 06/05/2024 11:41 AM CAR DISTRIBUTOR - 06/05/2024 3:28 PM [facility] Emergency [facility] Emergency Room [address] [place] [phone] Stiven Madsen MD Palm, Steven J, MD Sickle cell pain crisis (H) Discharge Disposition: Home or Self Care 06/05/2024 Travel 06/05/2024 [facility] [address] [place] [phone] Case Samuel MD Refill Request 06/03/2024 3:22 PM CAR DISTRIBUTOR - 06/03/2024 5:30 PM [facility] Emergency [facility] Emergency Room [address] [place] [phone] Jennifer Bell MD Sickle cell pain crisis (H) Discharge Disposition: Home or Self Care 06/03/2024 Travel 06/01/2024 11:41 PM CAR DISTRIBUTOR - 06/02/2024 2:35 AM [facility] Emergency [facility] Emergency Room [address] [place] [phone] Noel Pinzon MD Sickle cell pain crisis (H) Discharge Disposition: Home or Self Care 06/01/2024 Travel 05/31/2024 9:56 PM CAR DISTRIBUTOR - 06/01/2024 12:46 AM [facility] Emergency [facility] Emergency Room [address] [place] [phone] Carley Riggins MD Sickle cell pain crisis (H) Discharge Disposition: Home or Self Care 05/31/2024 Travel 05/30/2024 8:00 AM CAR DISTRIBUTOR Infusion Therapy Visit [facility] [address] [phone] Case Samuel MD 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); History of transfusion; Sickle cell pain crisis (H) 05/29/2024 11:30 AM CAR DISTRIBUTOR Oncology Visit [facility] [address] [phone] Case Samuel MD Severe episode of recurrent major depressive disorder, 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); History of transfusion; Sickle cell pain crisis (H); 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) 05/29/2024 Orders Only [facility] [address] [phone] Juhi Benson RN Sickle cell pain crisis (H) (Primary Dx); 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) 05/29/2024 Travel 05/28/2024 11:56 PM CAR DISTRIBUTOR - 05/29/2024 3:54 AM CAR DISTRIBUTOR Emergency [facility] Emergency Room [address] [place] [phone] Lenin Smith MD Sickle cell disease with crisis (H) Discharge Disposition: Home or Self Care 05/28/2024 Travel 05/27/2024 11:58 AM CAR DISTRIBUTOR - 05/27/2024 6:07 PM CAR DISTRIBUTOR Emergency [facility] Emergency Room [address] [place] [phone] Blas Mcclellan MD Ohl, Christine E, DO Sickle cell disease with crisis (H) Discharge Disposition: Home or Self Care 05/27/2024 Travel 05/25/2024 10:53 AM CAR DISTRIBUTOR - 05/25/2024 4:00 PM CAR DISTRIBUTOR Hospital Encounter [facility] Interventional Radiology [address] [place] [phone] Jaswinder Cooper MD 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) Discharge Disposition: Home or Self Care 05/23/2024 9:03 PM CAR DISTRIBUTOR - 05/23/2024 11:37 PM CAR DISTRIBUTOR Emergency [facility] Emergency Room [address] [place] [phone] Marilia Summers MD Sickle cell pain crisis (H); Leukocytosis, unspecified type; Left-sided chest wall pain Discharge Disposition: Home or Self Care 05/23/2024 Travel 05/22/2024 3:27 PM CAR DISTRIBUTOR - 05/22/2024 6:55 PM CAR DISTRIBUTOR Emergency [facility] Emergency Room [address] [place] [phone] Bernabe Farley MD Sickle cell pain crisis (H) Discharge Disposition: Home or Self Care 05/22/2024 MyC Refill [facility] [address] [place] [phone] Case Samuel MD Refill Request 05/22/2024 Travel 05/22/2024 MyC Medical Advice [facility] Interventional Radiology [address] [place] [phone] Yadi Mahan RN 05/20/2024 7:30 AM CAR DISTRIBUTOR - 05/20/2024 11:15 AM [facility] Emergency [facility] Emergency Room [address] [place] [phone] Stiven Madsen MD Sickle cell pain crisis (H) Discharge Disposition: Home or Self Care 05/20/2024 Travel 05/19/2024 2:10 AM CAR DISTRIBUTOR - 05/19/2024 6:06 AM [facility] Emergency [facility] Emergency Room [address] [place] [phone] Marilia Summers MD Sickle cell disease with crisis (H) Discharge Disposition: Home or Self Care 05/19/2024 Travel 05/16/2024 9:41 PM CAR DISTRIBUTOR - 05/17/2024 12:53 AM CAR DISTRIBUTOR Emergency [facility] Emergency Room [address] [place] [phone] Guille Davis DO Sickle cell pain crisis (H) Discharge Disposition: Home or Self Care 05/16/2024 Travel 05/14/2024 10:07 PM CAR DISTRIBUTOR - 05/15/2024 12:14 AM CAR DISTRIBUTOR Emergency [facility] Emergency Room [address] [place] [phone] Marguerite Ponce PA-C Sickle cell pain crisis (H) Discharge Disposition: Home or Self Care 05/14/2024 Travel 05/13/2024 3:56 PM CAR DISTRIBUTOR - 05/13/2024 7:56 PM [facility] Emergency [facility] Emergency Room [address] [place] [phone] Shaheen Unger MD Sickle cell pain crisis (H) Discharge Disposition: Home or Self Care 05/13/2024 Travel 05/08/2024 3:10 PM CAR DISTRIBUTOR - 05/08/2024 7:54 PM CAR DISTRIBUTOR Emergency [facility] Emergency Room [address] [place] [phone] Polly Alcaraz MD Sickle cell pain crisis (H) Discharge Disposition: Home or Self Care 05/08/2024 Travel 05/08/2024 MyC Refill [facility] [address] [place] [phone] Case Samuel MD Refill Request 05/06/2024 6:34 PM CAR DISTRIBUTOR - 05/06/2024 10:33 PM [facility] Emergency [facility] Emergency Room [address] [place] [phone] Noel Pinzon MD Sickle cell pain crisis (H) Discharge Disposition: Home or Self Care 05/06/2024 Travel 05/05/2024 11:10 AM CAR DISTRIBUTOR - 05/05/2024 2:25 PM CAR DISTRIBUTOR Emergency [facility] Emergency Room [address] [place] [phone] Star Gifford MD Sickle cell pain crisis (H) Discharge Disposition: Home or Self Care 05/05/2024 Travel 05/02/2024 8:23 AM CAR DISTRIBUTOR - 05/02/2024 8:54 AM CAR DISTRIBUTOR Emergency [facility] Emergency Department [address] [place] [phone] Andres Tejada MD Discharge Disposition: Left Without Being Seen 05/02/2024 Telephone [facility] [place] [id number] [facility] [address] [phone] No Ref-Primary, Physician Call to schedule (Ed follow up) 05/02/2024 Travel 05/01/2024 11:00 AM CAR DISTRIBUTOR Oncology Visit [facility] [address] [phone] Case Samuel MD History of transfusion (Primary Dx); 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); Gallstones; Avascular necrosis of bone of left hip (H); 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, with sickle cell retinopathy, unspecified laterality, unspecified whether proliferative (H); Sickle cell pain crisis (H) 05/01/2024 Orders Only [facility] [address] [place] [phone] Juhi Benson RN 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) 05/01/2024 Travel 04/28/2024 12:41 AM CAR DISTRIBUTOR - 04/28/2024 3:59 AM CAR DISTRIBUTOR Emergency [facility] Emergency Room [address] [place] [phone] Sandy Joya MD Sickle cell pain crisis (H) Discharge Disposition: Home or Self Care 04/28/2024 Travel 04/26/2024 11:53 PM CAR DISTRIBUTOR - 04/27/2024 2:14 AM CAR DISTRIBUTOR Emergency [facility] Emergency Room [address] [place] [phone] Sandy Joya MD Sickle cell pain crisis (H) Discharge Disposition: Home or Self Care 04/26/2024 Travel 04/19/2024 1:48 AM CAR DISTRIBUTOR - 04/19/2024 4:28 AM CAR DISTRIBUTOR Emergency [facility] Emergency Room [address] [place] [phone] Juan Rodriguez MD Sickle cell pain crisis (H); Left hip pain; Nondisplaced articular fracture of head of left femur, initial encounter for closed fracture (H) Discharge Disposition: Home or Self Care 04/19/2024 Travel 04/08/2024 9:38 PM CAR DISTRIBUTOR - 04/10/2024 10:16 AM CAR DISTRIBUTOR Hospital Encounter [facility] [address] [place] [phone] Iliana Weber MD Huynh, Ryan K, MD Raddawi, Kenan, MD Sickle cell pain crisis (H) Discharge Disposition: Home or Self Care 04/08/2024 Travel 04/05/2024 11:32 PM CAR DISTRIBUTOR - 04/06/2024 3:04 AM CAR DISTRIBUTOR Emergency [facility] Emergency Room [address] [place] [phone] Guille Davis DO Sickle cell pain crisis (H); Pulmonary nodules Discharge Disposition: Home or Self Care 04/05/2024 Travel 03/29/2024 PRE VISIT [facility] [address] [place] [phone] Provider, Generic External Data *-*INCOMING RECORDS*-* (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 (H) [D57.1]) 03/28/2024 Transcribe Orders GENERIC EXTERNAL DATA DEPARTMENT Provider, Generic External Data 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 (H) (Primary Dx) 03/27/2024 Telephone [facility] [address] [place] [phone] Hector Crabtere RN Results 03/26/2024 1:08 AM CAR DISTRIBUTOR - 03/26/2024 3:10 AM CAR DISTRIBUTOR [facility] Emergency Room [address] [place] [phone] Sandy Joya MD Sickle cell disease with crisis (H); Pulmonary nodules Discharge Disposition: Home or Self Care from Last 3 Months Immunizations Name Administration [...] in an overnight mcc, or couch-surfing.) Yes 06/20/2024 Are you worried [...] file Legal Sex Female 8:25 AM CAR DISTRIBUTOR Gender Identity Not on file Sexual Orientation Not on file Last Filed Vital Signs Vital Sign Reading Time Taken Comments Blood Pressure 111/67 06/24/2024 11:56 AM CAR DISTRIBUTOR Pulse 101 06/24/2024 12:11 PM CAR DISTRIBUTOR Temperature 36.9 C (98.4 F) 06/24/2024 9:26 AM CAR DISTRIBUTOR Respiratory Rate 16 06/24/2024 9:26 AM CAR DISTRIBUTOR Oxygen Saturation 100% 06/24/2024 12:11 PM CAR DISTRIBUTOR Inhaled Oxygen Concentration - - Weight 52.2 kg (115 lb) 06/24/2024 9:26 AM CAR DISTRIBUTOR Height 154.9 cm (5' 1) 06/24/2024 9:26 AM CAR DISTRIBUTOR Body Mass Index 21.73 06/24/2024 9:26 AM CAR DISTRIBUTOR Plan of Treatment Health Maintenance Due Date [...] General On track( 025 12:40 PM CAR DISTRIBUTOR) Yes Juhi Benson RN Note: Goal Statement: [...] medication remaining. Medical Devices Implanted Type Area Bottle House Quality Control Technician Device Identifier Shelf Expiration Date Model / Serial / Lot Bard 9.6 Powerflow Apheresis Iv Port-05/25/2024 Implanted:Qty: 1 on 05/25/2024 by Myron Michel MD Port Right: Chest Wall BARD 08/23/2024 [id number] / / [id number] Description:Right chest Wall Apheresis Port 9.6FR (Power) 6frt Smartport-05/25 Implanted:Qty: 1 on 05/25/2024 by Myron Michel MD Port Left: Chest Wall [employer] 09/23/2026 [id number] / / [id number] Description:6FR SL SmartPort (Power - 300psi max) Procedures Procedure Name Priority Date/Time Associated Diagnosis Comments ROUTINE UA WITH MICROSCOPIC REFLEX TO CULTURE STAT 06/24/2024 10:15 AM CAR DISTRIBUTOR CBC WITH PLATELETS & DIFFERENTIAL STAT 06/24/2024 10:11 AM CAR DISTRIBUTOR CBC WITH PLATELETS AND DIFFERENTIAL STAT 06/24/2024 10:11 AM CAR DISTRIBUTOR RETICULOCYTE COUNT STAT 06/24/2024 10:11 AM CAR DISTRIBUTOR HCG QUALITATIVE STAT 06/24/2024 10:11 AM CAR DISTRIBUTOR MAGNESIUM STAT 06/24/2024 10:11 AM CAR DISTRIBUTOR COMPREHENSIVE METABOLIC PANEL STAT 06/24/2024 10:11 AM CAR DISTRIBUTOR INR STAT 06/24/2024 10:11 AM CAR DISTRIBUTOR PARTIAL THROMBOPLASTIN TIME STAT 06/24/2024 10:11 AM CAR DISTRIBUTOR CBC WITH PLATELETS & DIFFERENTIAL STAT 06/23/2024 6:22 PM CAR DISTRIBUTOR DIFFERENTIAL STAT 06/23/2024 6:22 PM CAR DISTRIBUTOR CBC WITH PLATELETS AND DIFFERENTIAL STAT 06/23/2024 6:22 PM CAR DISTRIBUTOR HCG QUALITATIVE STAT 06/23/2024 6:22 PM CAR DISTRIBUTOR COMPREHENSIVE METABOLIC PANEL STAT 06/23/2024 6:22 PM CAR DISTRIBUTOR CBC WITH PLATELETS & DIFFERENTIAL STAT 06/22/2024 7:10 PM CAR DISTRIBUTOR CBC WITH PLATELETS AND DIFFERENTIAL STAT 06/22/2024 7:10 PM CAR DISTRIBUTOR RETICULOCYTE COUNT STAT 06/22/2024 7: 10 PM CAR DISTRIBUTOR HCG QUALITATIVE STAT 06/22/2024 7:10 PM CAR DISTRIBUTOR COMPREHENSIVE METABOLIC PANEL STAT 06/22/2024 7:10 PM CAR DISTRIBUTOR CBC WITH PLATELETS & DIFFERENTIAL STAT 06/20/2024 5:48 AM CAR DISTRIBUTOR CBC WITH PLATELETS AND DIFFERENTIAL STAT 06/20/2024 5:48 AM CAR DISTRIBUTOR RETICULOCYTE COUNT Routine 06/20/2024 5: 48 AM CAR DISTRIBUTOR COMPREHENSIVE METABOLIC PANEL Routine 06/20/2024 5:48 AM CAR DISTRIBUTOR LACTATE DEHYDROGENASE Routine 06/20/2024 5:48 AM CAR DISTRIBUTOR CBC WITH PLATELETS & DIFFERENTIAL STAT 06/19/2024 9:30 AM CAR DISTRIBUTOR RBC AND PLATELET MORPHOLOGY STAT 06/19/2024 9:30 AM CAR DISTRIBUTOR CBC WITH PLATELETS AND DIFFERENTIAL STAT 06/19/2024 9:30 AM CAR DISTRIBUTOR RETICULOCYTE COUNT STAT 06/19/2024 9: 30 AM CAR DISTRIBUTOR COMPREHENSIVE METABOLIC PANEL STAT 06/19/2024 9:30 AM CAR DISTRIBUTOR LACTATE DEHYDROGENASE STAT 06/19/2024 9:30 AM CAR DISTRIBUTOR PLATELET COUNT STAT 06/19/2024 12:17 AM CAR DISTRIBUTOR CREATININE STAT 06/19/2024 12:17 AM CAR DISTRIBUTOR CBC WITH PLATELETS & DIFFERENTIAL STAT 06/18/2024 8:24 AM CAR DISTRIBUTOR DIFFERENTIAL STAT 06/18/2024 8:24 AM CAR DISTRIBUTOR CBC WITH PLATELETS AND DIFFERENTIAL STAT 06/18/2024 8:24 AM CAR DISTRIBUTOR RETICULOCYTE COUNT STAT 06/18/2024 8: 24 AM CAR DISTRIBUTOR COMPREHENSIVE METABOLIC PANEL STAT 06/18/2024 8:24 AM CAR DISTRIBUTOR LACTATE DEHYDROGENASE STAT 06/18/2024 8:24 AM CAR DISTRIBUTOR ROUTINE UA WITH MICROSCOPIC REFLEX TO CULTURE STAT 06/17/2024 1:11 PM CAR DISTRIBUTOR TRANSFUSE RED BLOOD CELLS (UNIT) STAT 06/17/2024 10:26 AM CAR DISTRIBUTOR PREPARE RED BLOOD CELLS (UNIT) STAT 06/17/2024 9:12 AM CAR DISTRIBUTOR TRANSFERRIN Add-On 06/17/2024 6:16 AM CAR DISTRIBUTOR IRON AND IRON BINDING CAPACITY Add-On 06/17/2024 6:16 AM CAR DISTRIBUTOR CBC WITH PLATELETS STAT 06/17/2024 6: 16 AM CAR DISTRIBUTOR BASIC METABOLIC PANEL STAT 06/17/2024 6:16 AM CAR DISTRIBUTOR TROPONIN T, HIGH SENSITIVITY STAT 06/16/2024 9:33 PM CAR DISTRIBUTOR XR CHEST 2 VIEWS STAT 06/16/2024 6:09 PM CAR DISTRIBUTOR ABO/RH TYPE AND SCREEN STAT 5:37 PM CAR DISTRIBUTOR CBC WITH PLATELETS & DIFFERENTIAL STAT 06/16/2024 5:37 PM CAR DISTRIBUTOR BLOOD CULTURE STAT 06/16/2024 5:37 PM CAR DISTRIBUTOR TYPE AND SCREEN, ADULT STAT 5:37 PM CAR DISTRIBUTOR RBC AND PLATELET MORPHOLOGY STAT 06/16/2024 5:37 PM CAR DISTRIBUTOR CBC WITH PLATELETS AND DIFFERENTIAL STAT 06/16/2024 5:37 PM CAR DISTRIBUTOR PROLACTIN STAT 06/16/2024 5:37 PM CAR DISTRIBUTOR TROPONIN T, HIGH SENSITIVITY STAT 06/16/2024 5:37 PM CAR DISTRIBUTOR COMPREHENSIVE METABOLIC PANEL STAT 06/16/2024 5:37 PM CAR DISTRIBUTOR EKG 12-LEAD, TRACING ONLY STAT 06/16/2024 4:55 PM CAR DISTRIBUTOR CBC WITH PLATELETS & DIFFERENTIAL STAT 06/15/2024 6:09 AM CAR DISTRIBUTOR CBC WITH PLATELETS AND DIFFERENTIAL STAT 06/15/2024 6:09 AM CAR DISTRIBUTOR BASIC METABOLIC PANEL STAT 06/15/2024 6:09 AM CAR DISTRIBUTOR XR CHEST PORT 1 VIEW STAT 06/14/2024 8:46 AM CAR DISTRIBUTOR CBC WITH PLATELETS STAT 06/14/2024 7: 08 AM CAR DISTRIBUTOR BASIC METABOLIC PANEL STAT 06/14/2024 7:08 AM CAR DISTRIBUTOR CBC WITH PLATELETS STAT 06/13/2024 6: 32 PM CAR DISTRIBUTOR CBC WITH PLATELETS & DIFFERENTIAL STAT 06/13/2024 6:00 AM CAR DISTRIBUTOR RBC AND PLATELET MORPHOLOGY STAT 06/13/2024 6:00 AM CAR DISTRIBUTOR CBC WITH PLATELETS AND DIFFERENTIAL STAT 06/13/2024 6:00 AM CAR DISTRIBUTOR BASIC METABOLIC PANEL STAT 06/13/2024 5:59 AM CAR DISTRIBUTOR RESPIRATORY PANEL PCR STAT 06/12/2024 9:34 PM CAR DISTRIBUTOR BLOOD CULTURE STAT 06/12/2024 8:46 PM CAR DISTRIBUTOR BLOOD CULTURE STAT 06/12/2024 8:46 PM CAR DISTRIBUTOR XR CHEST 2 VIEWS STAT 06/12/2024 7:38 PM CAR DISTRIBUTOR ABO/RH TYPE AND SCREEN Add-On 7:17 PM CAR DISTRIBUTOR CBC WITH PLATELETS & DIFFERENTIAL STAT 06/12/2024 7:17 PM CAR DISTRIBUTOR TYPE AND SCREEN, ADULT Routine 7:17 PM CAR DISTRIBUTOR RBC AND PLATELET MORPHOLOGY STAT 06/12/2024 7:17 PM CAR DISTRIBUTOR CBC WITH PLATELETS AND DIFFERENTIAL STAT 06/12/2024 7:17 PM CAR DISTRIBUTOR BLOOD GAS VENOUS STAT 06/12/2024 7:17 PM CAR DISTRIBUTOR TROPONIN T, HIGH SENSITIVITY STAT 06/12/2024 7:17 PM CAR DISTRIBUTOR BASIC METABOLIC PANEL STAT 06/12/2024 7:17 PM CAR DISTRIBUTOR INR STAT 06/12/2024 7:17 PM CAR DISTRIBUTOR EKG 12-LEAD, TRACING ONLY STAT 06/12/2024 6:37 PM CAR DISTRIBUTOR ECG 12-LEAD WITH MUSE SJN,SJO,WWH STAT 06/11/2024 9:04 PM CAR DISTRIBUTOR CBC WITH PLATELETS & DIFFERENTIAL Routine 06/07/2024 1:15 PM CAR DISTRIBUTOR Sickle cell pain crisis (H) RBC AND PLATELET MORPHOLOGY Routine 06/07/2024 1:15 PM CAR DISTRIBUTOR Sickle cell pain crisis (H) INFLUENZA A/B, RSV AND SARS-COV2 PCR Routine 06/07/2024 1:15 PM CAR DISTRIBUTOR Fever CBC WITH PLATELETS AND DIFFERENTIAL Routine 06/07/2024 1:15 PM CAR DISTRIBUTOR Sickle cell pain crisis (H) BASIC METABOLIC PANEL Routine 06/07/2024 1:15 PM CAR DISTRIBUTOR Sickle cell pain crisis (H) ECG 12-LEAD WITH MUSE SJN,SJO,WWH STAT 06/05/2024 11:40 AM CAR DISTRIBUTOR ECG 12-LEAD WITH MUSE SJN,SJO,WWH STAT 06/03/2024 3:24 PM CAR DISTRIBUTOR CBC WITH PLATELETS & DIFFERENTIAL STAT 05/31/2024 10:21 PM CAR DISTRIBUTOR RBC AND PLATELET MORPHOLOGY STAT 05/31/2024 10:21 PM CAR DISTRIBUTOR CBC WITH PLATELETS AND DIFFERENTIAL STAT 05/31/2024 10:21 PM CAR DISTRIBUTOR BASIC METABOLIC PANEL STAT 05/31/2024 10:21 PM CAR DISTRIBUTOR RETICULOCYTE COUNT STAT 05/31/2024 10:21 PM CAR DISTRIBUTOR TRANSFUSE RED BLOOD CELLS (UNIT) Routine 05/30/2024 8:28 AM CAR DISTRIBUTOR 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) History of transfusion PREPARE RED BLOOD CELLS (UNIT) Routine 05/29/2024 5:12 PM CAR DISTRIBUTOR ABO/RH TYPE AND SCREEN Routine 11:23 AM CAR DISTRIBUTOR History of transfusion CBC WITH PLATELETS & DIFFERENTIAL Routine 05/29/2024 11:23 AM CAR DISTRIBUTOR BILL ONLY- CAPILLARY ELECTROPHORESIS Routine 05/29/2024 11:23 AM CAR DISTRIBUTOR BILL ONLY- SICKLE SOLUBILITY BILL Routine 05/29/2024 11:23 AM CAR DISTRIBUTOR URINE CULTURE Routine 05/29/2024 11:23 AM CAR DISTRIBUTOR TYPE AND SCREEN, ADULT Add-On 11:23 AM CAR DISTRIBUTOR History of transfusion RBC AND PLATELET MORPHOLOGY Routine 05/29/2024 11:23 AM CAR DISTRIBUTOR CBC WITH PLATELETS AND DIFFERENTIAL Routine 05/29/2024 11:23 AM CAR DISTRIBUTOR GENOTYPE RED BLOOD CELL Routine 05/29/2024 11:23 AM CAR DISTRIBUTOR History of transfusion HEMOGLOBIN EVAL REFLEX TO ELP OR RBC SOLUBILITY Routine 05/29/2024 11:23 AM CAR DISTRIBUTOR FERRITIN Routine 05/29/2024 11:23 AM CAR DISTRIBUTOR ROUTINE UA WITH MICROSCOPIC REFLEX TO CULTURE Routine 05/29/2024 11:23 AM CAR DISTRIBUTOR COMPREHENSIVE METABOLIC PANEL Routine 05/29/2024 11:23 AM CAR DISTRIBUTOR RETICULOCYTE COUNT Routine 05/29/2024 11:23 AM CAR DISTRIBUTOR CBC WITH PLATELETS & DIFFERENTIAL STAT 05/29/2024 12:53 AM CAR DISTRIBUTOR MANUAL DIFFERENTIAL STAT 05/29/2024 12:53 AM CAR DISTRIBUTOR CBC WITH PLATELETS AND DIFFERENTIAL STAT 05/29/2024 12:53 AM CAR DISTRIBUTOR RETICULOCYTE COUNT STAT 05/29/2024 12:53 AM CAR DISTRIBUTOR CBC WITH PLATELETS & DIFFERENTIAL STAT 05/27/2024 3:13 PM CAR DISTRIBUTOR MANUAL DIFFERENTIAL STAT 05/27/2024 3 :13 PM CAR DISTRIBUTOR CBC WITH PLATELETS AND DIFFERENTIAL STAT 05/27/2024 3:13 PM CAR DISTRIBUTOR RETICULOCYTE COUNT STAT 05/27/2024 3: 13 PM CAR DISTRIBUTOR XR CHEST 2 VIEWS STAT 05/27/2024 2:57 PM CAR DISTRIBUTOR COMPREHENSIVE METABOLIC PANEL STAT 05/27/2024 2:30 PM CAR DISTRIBUTOR ECG 12-LEAD WITH MUSE SJN,SJO,WWH STAT 05/27/2024 12:12 PM CAR DISTRIBUTOR IR PROCEDURE NOTE Routine 05/25/2024 2:5 4 PM CAR DISTRIBUTOR IR CHEST PORT PLACEMENT > 5 YRS OF AGE Routine: Next available opening 05/25/2024 2:47 PM CAR DISTRIBUTOR 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) IR CHEST PORT PLACEMENT > 5 YRS OF AGE Priority: 1-2 Weeks 05/25/2024 2:47 PM CAR DISTRIBUTOR 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) HCG QUALITATIVE URINE Routine 05/25/2024 12:[address] CHEST PULMONARY EMBOLISM W CONTRAST STAT 05/23/2024 9:33 PM CAR DISTRIBUTOR N TERMINAL PRO BNP OUTPATIENT STAT 05/23/2024 9:02 PM CAR DISTRIBUTOR TROPONIN T, HIGH SENSITIVITY STAT 05/23/2024 9:02 PM CAR DISTRIBUTOR RETICULOCYTE COUNT STAT 05/23/2024 9: 02 PM CAR DISTRIBUTOR CBC WITH PLATELETS STAT 05/23/2024 9: 02 PM CAR DISTRIBUTOR ECG 12-LEAD WITH MUSE SJN,SJO,WWH STAT 05/23/2024 6:54 PM CAR DISTRIBUTOR XR CHEST 2 VIEWS STAT 05/22/2024 5:19 PM CAR DISTRIBUTOR CBC WITH PLATELETS & DIFFERENTIAL STAT 05/22/2024 3:51 PM CAR DISTRIBUTOR RBC AND PLATELET MORPHOLOGY STAT 05/22/2024 3:51 PM CAR DISTRIBUTOR CBC WITH PLATELETS AND DIFFERENTIAL STAT 05/22/2024 3:51 PM CAR DISTRIBUTOR BASIC METABOLIC PANEL STAT 05/22/2024 3:51 PM CAR DISTRIBUTOR ECG 12-LEAD WITH MUSE SJN,SJO,WWH STAT 05/22/2024 3:14 PM CAR DISTRIBUTOR XR CHEST 2 VIEWS STAT 05/20/2024 9:30 AM CAR DISTRIBUTOR CBC WITH PLATELETS & DIFFERENTIAL STAT 05/20/2024 9:09 AM CAR DISTRIBUTOR RBC AND PLATELET MORPHOLOGY STAT 05/20/2024 9:09 AM CAR DISTRIBUTOR BASIC METABOLIC PANEL STAT 05/20/2024 9:09 AM CAR DISTRIBUTOR EXTRA GREEN TOP (LITHIUM HEPARIN) TUBE STAT 05/20/2024 9:09 AM CAR DISTRIBUTOR EXTRA TUBE STAT 05/20/2024 9:09 AM CAR DISTRIBUTOR CBC WITH PLATELETS AND DIFFERENTIAL STAT 05/20/2024 9:09 AM CAR DISTRIBUTOR RETICULOCYTE COUNT STAT 05/20/2024 9: 09 AM CAR DISTRIBUTOR BASIC METABOLIC PANEL STAT 05/20/2024 8:21 AM CAR DISTRIBUTOR ECG 12-LEAD WITH MUSE SJN,SJO,WWH STAT 05/20/2024 7:36 AM CAR DISTRIBUTOR CBC WITH PLATELETS & DIFFERENTIAL STAT 05/19/2024 3:05 AM CAR DISTRIBUTOR MANUAL DIFFERENTIAL STAT 05/19/2024 3:05 AM CAR DISTRIBUTOR CBC WITH PLATELETS AND DIFFERENTIAL STAT 05/19/2024 3:05 AM CAR DISTRIBUTOR HCG QUALITATIVE STAT 05/19/2024 3:05 AM CAR DISTRIBUTOR CK TOTAL STAT 05/19/2024 3:05 AM CAR DISTRIBUTOR HEPATIC FUNCTION PANEL STAT 3:05 AM CAR DISTRIBUTOR BASIC METABOLIC PANEL STAT 05/19/2024 3:05 AM CAR DISTRIBUTOR RETICULOCYTE COUNT STAT 05/19/2024 3: 05 AM CAR DISTRIBUTOR CBC WITH PLATELETS & DIFFERENTIAL STAT 05/16/2024 10:17 PM CAR DISTRIBUTOR RBC AND PLATELET MORPHOLOGY STAT 05/16/2024 10:17 PM CAR DISTRIBUTOR CBC WITH PLATELETS AND DIFFERENTIAL STAT 05/16/2024 10:17 PM CAR DISTRIBUTOR BASIC METABOLIC PANEL STAT 05/16/2024 10:17 PM CAR DISTRIBUTOR INFLUENZA A/B, RSV AND SARS-COV2 PCR STAT 05/16/2024 10:00 PM CAR DISTRIBUTOR CBC WITH PLATELETS & DIFFERENTIAL STAT 05/14/2024 10:24 PM CAR DISTRIBUTOR MANUAL DIFFERENTIAL STAT 05/14/2024 10:24 PM CAR DISTRIBUTOR CBC WITH PLATELETS AND DIFFERENTIAL STAT 05/14/2024 10:24 PM CAR DISTRIBUTOR HCG QUALITATIVE STAT 05/14/2024 10:24 PM CAR DISTRIBUTOR TROPONIN T, HIGH SENSITIVITY STAT 05/14/2024 10:24 PM CAR DISTRIBUTOR RETICULOCYTE COUNT STAT 05/14/2024 10:24 PM CAR DISTRIBUTOR HEPATIC FUNCTION PANEL STAT 10:24 PM CAR DISTRIBUTOR BASIC METABOLIC PANEL STAT 05/14/2024 10:24 PM CAR DISTRIBUTOR ECG 12-LEAD WITH MUSE SJN,SJO,WWH STAT 05/14/2024 10:12 PM CAR DISTRIBUTOR EXTRA PURPLE TOP TUBE STAT 05/13/2024 6:17 PM CAR DISTRIBUTOR EXTRA TUBE STAT 05/13/2024 6:17 PM CAR DISTRIBUTOR LACTATE DEHYDROGENASE STAT 05/13/2024 6:16 PM CAR DISTRIBUTOR CBC WITH PLATELETS & DIFFERENTIAL STAT 05/13/2024 4:57 PM CAR DISTRIBUTOR MANUAL DIFFERENTIAL STAT 05/13/2024 4 :57 PM CAR DISTRIBUTOR CBC WITH PLATELETS AND DIFFERENTIAL STAT 05/13/2024 4:57 PM CAR DISTRIBUTOR TROPONIN T, HIGH SENSITIVITY STAT 05/13/2024 4:57 PM CAR DISTRIBUTOR RETICULOCYTE COUNT STAT 05/13/2024 4: 57 PM CAR DISTRIBUTOR HEPATIC FUNCTION PANEL STAT 4:57 PM CAR DISTRIBUTOR BASIC METABOLIC PANEL STAT 05/13/2024 4:57 PM CAR DISTRIBUTOR ECG 12-LEAD WITH MUSE SJN,SJO,WWH STAT 05/13/2024 3:38 PM CAR DISTRIBUTOR INFLUENZA A/B, RSV AND SARS-COV2 PCR STAT 05/08/2024 7:33 PM CAR DISTRIBUTOR XR CHEST 2 VIEWS STAT 05/08/2024 5:27 PM CAR DISTRIBUTOR CBC WITH PLATELETS & DIFFERENTIAL STAT 05/08/2024 4:14 PM CAR DISTRIBUTOR RBC AND PLATELET MORPHOLOGY STAT 05/08/2024 4:14 PM CAR DISTRIBUTOR CBC WITH PLATELETS AND DIFFERENTIAL STAT 05/08/2024 4:14 PM CAR DISTRIBUTOR HCG QUALITATIVE STAT 05/08/2024 4:14 PM CAR DISTRIBUTOR INR STAT 05/08/2024 4:14 PM CAR DISTRIBUTOR TROPONIN T, HIGH SENSITIVITY STAT 05/08/2024 4:14 PM CAR DISTRIBUTOR RETICULOCYTE COUNT STAT 05/08/2024 4: 14 PM CAR DISTRIBUTOR COMPREHENSIVE METABOLIC PANEL STAT 05/08/2024 4:14 PM CAR DISTRIBUTOR ECG 12-LEAD WITH MUSE SJN,SJO,WWH STAT 05/08/2024 3:13 PM CAR DISTRIBUTOR ECG 12-LEAD WITH MUSE SJN,SJO,WWH STAT 05/06/2024 7:51 PM CAR DISTRIBUTOR CBC WITH PLATELETS & DIFFERENTIAL STAT 05/06/2024 7:43 PM CAR DISTRIBUTOR RBC AND PLATELET MORPHOLOGY STAT 05/06/2024 7:43 PM CAR DISTRIBUTOR CBC WITH PLATELETS AND DIFFERENTIAL STAT 05/06/2024 7:43 PM CAR DISTRIBUTOR HEPATIC FUNCTION PANEL STAT 7:43 PM CAR DISTRIBUTOR RETICULOCYTE COUNT STAT 05/06/2024 7: 43 PM CAR DISTRIBUTOR TROPONIN T, HIGH SENSITIVITY STAT 05/06/2024 7:43 PM CAR DISTRIBUTOR BASIC METABOLIC PANEL STAT 05/06/2024 7:43 PM CAR DISTRIBUTOR XR CHEST 2 VIEWS STAT 05/05/2024 12:16 PM CAR DISTRIBUTOR CBC WITH PLATELETS & DIFFERENTIAL STAT 05/05/2024 11:50 AM CAR DISTRIBUTOR RBC AND PLATELET MORPHOLOGY STAT 05/05/2024 11:50 AM CAR DISTRIBUTOR CBC WITH PLATELETS AND DIFFERENTIAL STAT 05/05/2024 11:50 AM CAR DISTRIBUTOR TROPONIN T, HIGH SENSITIVITY STAT 05/05/2024 11:50 AM CAR DISTRIBUTOR RETICULOCYTE COUNT STAT 05/05/2024 11:50 AM CAR DISTRIBUTOR BASIC METABOLIC PANEL STAT 05/05/2024 11:50 AM CAR DISTRIBUTOR ECG 12-LEAD WITH MUSE SJN,SJO,WWH STAT 05/05/2024 11:03 AM CAR DISTRIBUTOR CBC WITH PLATELETS & DIFFERENTIAL STAT 04/28/2024 1:50 AM CAR DISTRIBUTOR VITAMIN D DEFICIENCY SCREENING Add-On 04/28/2024 1:50 AM CAR DISTRIBUTOR Sickle cell pain crisis (H) MANUAL DIFFERENTIAL STAT 04/28/2024 1 :50 AM CAR DISTRIBUTOR CBC WITH PLATELETS AND DIFFERENTIAL STAT 04/28/2024 1:50 AM CAR DISTRIBUTOR RETICULOCYTE COUNT STAT 04/28/2024 1: 50 AM CAR DISTRIBUTOR COMPREHENSIVE METABOLIC PANEL STAT 04/28/2024 1:50 AM CAR DISTRIBUTOR CBC WITH PLATELETS & DIFFERENTIAL STAT 04/27/2024 12:23 AM CAR DISTRIBUTOR RBC AND PLATELET MORPHOLOGY STAT 04/27/2024 12:23 AM CAR DISTRIBUTOR CBC WITH PLATELETS AND DIFFERENTIAL STAT 04/27/2024 12:23 AM CAR DISTRIBUTOR RETICULOCYTE COUNT STAT 04/27/2024 12:23 AM CAR DISTRIBUTOR COMPREHENSIVE METABOLIC PANEL STAT 04/27/2024 12:[address] PELVIS BONE WO CONTRAST STAT 04/19/2024 3:22 AM CAR DISTRIBUTOR HCG QUALITATIVE URINE STAT 04/19/2024 2:17 AM CAR DISTRIBUTOR ROUTINE UA WITH MICROSCOPIC REFLEX TO CULTURE STAT 04/19/2024 2:16 AM CAR DISTRIBUTOR CBC WITH PLATELETS & DIFFERENTIAL STAT 04/19/2024 2:11 AM CAR DISTRIBUTOR MANUAL DIFFERENTIAL STAT 04/19/2024 2 :11 AM CAR DISTRIBUTOR CBC WITH PLATELETS AND DIFFERENTIAL STAT 04/19/2024 2:11 AM CAR DISTRIBUTOR RETICULOCYTE COUNT STAT 04/19/2024 2: 11 AM CAR DISTRIBUTOR BASIC METABOLIC PANEL STAT 04/19/2024 2:11 AM CAR DISTRIBUTOR CBC WITH PLATELETS & DIFFERENTIAL Routine 04/10/2024 5:35 AM CAR DISTRIBUTOR CBC WITH PLATELETS AND DIFFERENTIAL Routine 04/10/2024 5:35 AM CAR DISTRIBUTOR CBC WITH PLATELETS STAT 04/09/2024 6: 13 AM CAR DISTRIBUTOR BASIC METABOLIC PANEL STAT 04/09/2024 6:13 AM CAR DISTRIBUTOR CBC WITH PLATELETS & DIFFERENTIAL STAT 04/08/2024 10:22 PM CAR DISTRIBUTOR EXTRA RED TOP TUBE STAT 04/08/2024 10:22 PM CAR DISTRIBUTOR EXTRA BLUE TOP TUBE STAT 04/08/2024 10:22 PM CAR DISTRIBUTOR CBC WITH PLATELETS AND DIFFERENTIAL STAT 04/08/2024 10:22 PM CAR DISTRIBUTOR EXTRA TUBE STAT 04/08/2024 10:22 PM CAR DISTRIBUTOR BASIC METABOLIC PANEL STAT 04/08/2024 10:22 PM CAR DISTRIBUTOR RETICULOCYTE COUNT STAT 04/08/2024 10:22 PM CAR DISTRIBUTOR ECG 12-LEAD WITH MUSE SJN,SJO,WWH STAT 04/08/2024 9:[address] CHEST PULMONARY EMBOLISM W CONTRAST STAT 04/06/2024 2:22 AM CAR DISTRIBUTOR D DIMER QUANTITATIVE STAT 04/06/2024 12:45 AM CAR DISTRIBUTOR TROPONIN T, HIGH SENSITIVITY STAT 04/06/2024 12:45 AM CAR DISTRIBUTOR BASIC METABOLIC PANEL STAT 04/06/2024 12:45 AM CAR DISTRIBUTOR CBC WITH PLATELETS AND DIFFERENTIAL STAT 04/06/2024 12:43 AM CAR DISTRIBUTOR ECG 12-LEAD WITH MUSE SJN,SJO,WWH STAT 04/06/2024 12:41 AM CAR DISTRIBUTOR CBC WITH PLATELETS & DIFFERENTIAL STAT 04/05/2024 11:47 PM CAR DISTRIBUTOR XR CHEST 2 VIEWS STAT 03/26/2024 2:19 AM CAR DISTRIBUTOR CBC WITH PLATELETS & DIFFERENTIAL STAT 03/26/2024 1:54 AM CAR DISTRIBUTOR MANUAL DIFFERENTIAL Routine 03/26/2024 1 :54 AM CAR DISTRIBUTOR CBC WITH PLATELETS AND DIFFERENTIAL STAT 03/26/2024 1:54 AM CAR DISTRIBUTOR HCG QUALITATIVE STAT 03/26/2024 1:54 AM CAR DISTRIBUTOR RETICULOCYTE COUNT STAT 03/26/2024 1: 54 AM CAR DISTRIBUTOR TROPONIN T, HIGH SENSITIVITY STAT 03/26/2024 1:54 AM CAR DISTRIBUTOR COMPREHENSIVE METABOLIC PANEL STAT 03/26/2024 1:54 AM CAR DISTRIBUTOR INR STAT 03/26/2024 1:54 AM CAR DISTRIBUTOR ECG 12-LEAD WITH MUSE SJN,SJO,WWH STAT 03/26/2024 1:13 AM CAR DISTRIBUTOR from Last 3 Months Results * (ABNORMAL) UA with Microscopic reflex to Culture (06/24/2024 10:15 AM CAR DISTRIBUTOR) Only the most recent of4 resultswithin the time period is included. Color Urine Light Yellow Colorless, Straw, Light Yellow, Yellow 06/24/2024 10:25 AM CAR DISTRIBUTOR [facility] Appearance Urine Clear Clear 06/25/19 10:25 AM CAR DISTRIBUTOR [facility] Glucose Urine Negative Negative mg/dL 06/24/2024 10:25 AM CAR DISTRIBUTOR [facility] Bilirubin Urine Negative Negative 10:25 AM CAR DISTRIBUTOR [facility] Ketones Urine Negative Negative mg/dL 06/24/2024 10:25 AM CAR DISTRIBUTOR [facility] Specific [place] Urine 1.009 1.003 - 1.035 06/24/2024 10:25 AM CAR DISTRIBUTOR [facility] Blood Urine Negative Negative 06/24/2024 10:25 AM CAR DISTRIBUTOR [facility] pH Urine 7.5(H) 5.0 - 7.0 06/24/2024 10:25 AM CAR DISTRIBUTOR [facility] Protein Albumin Urine Negative Negative mg/dL 06/24/2024 10:25 AM CAR DISTRIBUTOR [facility] Urobilinogen Urine Normal Normal, 2.0 mg/dL 06/24/2024 10:25 AM CAR DISTRIBUTOR [facility] Nitrite Urine Negative Negative 06/24/2024 10:25 AM CAR DISTRIBUTOR [facility] Leukocyte Esterase Urine Negative Negative 06/24/2024 10:25 AM CAR DISTRIBUTOR [facility] RBC Urine <1 <=2 /HPF 06/24/2024 10:25 AM CAR DISTRIBUTOR [facility] WBC Urine <1 <=5 /HPF 06/24/2024 10:25 AM CAR DISTRIBUTOR [facility] Squamous Epithelials Urine 11(H) <=1 /HPF 06/24/2024 10:25 AM CAR DISTRIBUTOR [facility] Hyaline Casts Urine 1 <=2 /LPF 06/24/2024 10:25 AM CAR DISTRIBUTOR [facility] Urine MID-STREAM URINE SPECIMEN / Unknown Non-blood Collection / Unknown 06/24/2024 10:15 AM CAR DISTRIBUTOR 06/24/2024 10:20 AM CAR DISTRIBUTOR Narrative [facility] - 06/24/2024 10:25 AM CAR DISTRIBUTOR Urine Culture not indicated us Richar Mahajan MD LAB - URINE ORDERABLES Liss l Result [facility]AT[facility] [place] Core Lab [address] [facility], [address] [place] [address] * (ABNORMAL) CBC with platelets and differential (06/24/2024 10:11 AM CAR DISTRIBUTOR) Only the most recent of31 resultswithin the time period is included. WBC Count 7.8 4.0 - 11.0 10e3/uL 06/24/2024 10:28 AM CAR DISTRIBUTOR [facility] RBC Count 2.49(L) 3.80 - 5.20 10e6/uL 06/24/2024 10:28 AM CAR DISTRIBUTOR [facility] Hemoglobin 7.9(L) 11.7 - 15.7 g/dL 06/24/2024 10:28 AM CAR DISTRIBUTOR [facility] Hematocrit 24.8(L) 35.0 - 47.0 % 06/24/2024 10:28 AM CAR DISTRIBUTOR [facility] MCV 100 78 - 100 fL 06/24/2024 10:28 AM CAR DISTRIBUTOR [facility] MCH 31.7 26.5 - 33.0 pg 06/24/2024 10:28 AM CAR DISTRIBUTOR [facility] MCHC 31.9 31.5 - 36.5 g/dL 06/24/2024 10:28 AM CAR DISTRIBUTOR [facility] RDW 19.0(H) 10.0 - 15.0 % 06/24/2024 10:28 AM CAR DISTRIBUTOR [facility] Platelet Count 482(H) 150 - 450 10e3/uL 06/24/2024 10:28 AM CAR DISTRIBUTOR [facility] % Neutrophils 61 % 06/24/2024 10:28 AM CAR DISTRIBUTOR [facility] % Lymphocytes 26 % 06/24/2024 10:28 AM CAR DISTRIBUTOR [facility] % Monocytes 9 % 06/24/2024 10:28 AM CAR DISTRIBUTOR [facility] % Eosinophils 1 % 06/24/2024 10:28 AM CAR DISTRIBUTOR [facility] % Basophils 2 % 06/24/2024 10:28 AM CAR DISTRIBUTOR [facility] % Immature Granulocytes 1 % 06/24/2024 10:28 AM CAR DISTRIBUTOR [facility] NRBCs per 100 WBC 5(H) <1 /100 025 10:28 AM CAR DISTRIBUTOR [facility] Absolute Neutrophils 4.8 1.6 - 8.3 10e3/uL 06/24/2024 10:28 AM CAR DISTRIBUTOR [facility] Absolute Lymphocytes 2.1 0.8 - 5.3 10e3/uL 06/24/2024 10:28 AM CAR DISTRIBUTOR [facility] Absolute Monocytes 0.7 0.0 - 1.3 10e3/uL 06/24/2024 10:28 AM CAR DISTRIBUTOR [facility] Absolute Eosinophils 0.1 0.0 - 0.7 10e3/uL 06/24/2024 10:28 AM CAR DISTRIBUTOR [facility] Absolute Basophils 0.1 0.0 - 0.2 10e3/uL 06/24/2024 10:28 AM CAR DISTRIBUTOR [facility] Absolute Immature Granulocytes 0.1 <=0.4 10e3/uL 06/24/2024 10:28 AM CAR DISTRIBUTOR [facility] Absolute NRBCs 0.4 10e3/uL 06/24/2024 10:28 AM CAR DISTRIBUTOR [facility] Blood BLOOD SPECIMEN / Unknown Venipuncture / Unknown 06/24/2024 10:11 AM CAR DISTRIBUTOR 06/24/2024 10:22 AM CAR DISTRIBUTOR Richar Mahajan MD LAB - BLOOD ORDERABLES Liss l Result Performing Organization Address City/[facility] Co de Phone Number LABORATORY [facility] Core Lab [address] [facility], [address] * (ABNORMAL) Reticulocyte count (06/24/2024 10:11 AM CAR DISTRIBUTOR) Only the most recent of22 resultswithin the time period is included. % Reticulocyte 11.2(H) 0.5 - 2.0 % 06/24/2024 10:28 AM CAR DISTRIBUTOR [facility] Absolute Reticulocyte 0.280(H) 0.025 - 0.095 10e6/uL 06/24/2024 10:28 AM CAR DISTRIBUTOR [facility] Blood BLOOD SPECIMEN / Unknown Venipuncture / Unknown 06/24/2024 10:11 AM CAR DISTRIBUTOR 06/24/2024 10:22 AM CAR DISTRIBUTOR Richar Mahajan MD LAB - BLOOD ORDERABLES Liss l Result Performing Organization Address City/[facility] Co de Phone Number LABORATORY [facility] Core Lab [address] [facility] * (ABNORMAL) INR (06/24/2024 10:11 AM CAR DISTRIBUTOR) Only the most recent of4 resultswithin the time period is included. INR 1.45(H) 0.85 - 1.15 06/24/2024 10:54 AM CAR DISTRIBUTOR [facility] Blood BLOOD SPECIMEN / Unknown Venipuncture / Unknown 06/24/2024 10:11 AM CAR DISTRIBUTOR 06/24/2024 10:21 AM CAR DISTRIBUTOR Richar Mahajan MD LAB - BLOOD ORDERABLES Liss l Result LABORATORY [facility] [place] Core Lab [address] [facility] * Partial thromboplastin time (06/24/2024 10:11 AM CAR DISTRIBUTOR) aPTT 32 22 - 38 Seconds 06/24/2024 10:55 AM CAR DISTRIBUTOR [facility] Blood BLOOD SPECIMEN / Unknown Venipuncture / Unknown 06/24/2024 10:11 AM CAR DISTRIBUTOR 06/24/2024 10:21 AM CAR DISTRIBUTOR Richar Mahajan MD LAB - BLOOD ORDERABLES Liss l Result Performing Organization Address City/[facility]/ZIP Co de Phone Number LABORATORY [facility] Core Lab [address] [facility], [address] * Magnesium (06/24/2024 10:11 AM CAR DISTRIBUTOR) Pathologist [facility] Magnesium 2.1 1.7 - 2.3 mg/dL 06/24/2024 10:51 AM CAR DISTRIBUTOR [facility] Blood BLOOD SPECIMEN / Unknown Venipuncture / Unknown 06/24/2024 10:11 AM CAR DISTRIBUTOR 06/24/2024 10:21 AM CAR DISTRIBUTOR Richar Mahajan MD LAB - BLOOD ORDERABLES Liss l Result Performing Organization Address City/[facility]/ZIP Co de Phone Number U LABORATORY [facility] [place] Core Lab [address] [facility], [address] * HCG qualitative Blood (06/24/2024 10:11 AM CAR DISTRIBUTOR) Only the most recent of7 resultswithin the time period is included. hCG Serum Qualitative Negative Negative JARET 06/24/2024 10:33 AM CAR DISTRIBUTOR [facility] Comment:This test is for scr eening purposes. Results should be interpreted along with the clinical picture. Confirmation testing is available if warranted by ordering [id number], HCG Quantitative . Blood BLOOD SPECIMEN / Unknown Venipuncture / Unknown 06/24/2024 10:11 AM CAR DISTRIBUTOR 06/24/2024 10:20 AM CAR DISTRIBUTOR Richar Mahajan MD LAB - BLOOD ORDERABLES [place] Result [facility] LAB[facility]ORY [facility] [place] Core Lab [address] [facility], [address] [place] [address] * (ABNORMAL) Comprehensive metabolic panel (06/24/2024 10:11 AM CAR DISTRIBUTOR) Only the most recent of13 resultswithin the time period is included. Sodium 138 135 - 145 mmol/L 06/24/2024 10:51 AM CAR DISTRIBUTOR [facility] Potassium 4.3 3.4 - 5.3 mmol/L 06/24/2024 10:51 AM CAR DISTRIBUTOR [facility] Carbon Dioxide (CO2) 20(L) 22 - 29 mmol/L 06/24/2024 10:51 AM CAR DISTRIBUTOR [facility] Anion Gap 10 7 - 15 mmol/L 06/24/2024 10:51 AM CAR DISTRIBUTOR [facility] Urea Nitrogen 9.9 6.0 - 20.0 mg/dL 06/24/2024 10:51 AM CAR DISTRIBUTOR [facility] Creatinine 0.62 0.51 - 0.95 mg/dL 06/24/2024 10:51 AM CAR DISTRIBUTOR [facility] GFR Estimate >90 >60 mL/min/1.7 3m2 06/24/2024 10:51 AM CAR DISTRIBUTOR [facility] Comment:eGFR calculated us2020 CKD-EPI equation. Calcium 8.7(L) 8.8 - 10.4 mg/dL 06/24/2024 10:51 AM CAR DISTRIBUTOR [facility] Chloride 108(H) 98 - 107 mmol/L 06/24/2024 10:51 AM CAR DISTRIBUTOR [facility] Glucose 98 70 - 99 mg/dL 06/24/2024 10:51 AM CAR DISTRIBUTOR [facility] Alkaline Phosphatase 119 40 - 150 U/L 06/24/2024 10:51 AM CAR DISTRIBUTOR [facility] AST 57(H) 0 - 45 U/L 06/24/2024 10:51 AM CAR DISTRIBUTOR [facility] ALT 53(H) 0 - 50 U/L 06/24/2024 10:51 AM CAR DISTRIBUTOR [facility] Protein Total 7.4 6.4 - 8.3 g/dL 06/24/2024 10:51 AM CAR DISTRIBUTOR [facility] Albumin 4.0 3.5 - 5.2 g/dL 06/24/2024 10:51 AM CAR DISTRIBUTOR [facility] Bilirubin Total 1.1 <=1.2 mg/dL 06/24/2024 10:51 AM CAR DISTRIBUTOR [facility] Blood BLOOD SPECIMEN / Unknown Venipuncture / Unknown 06/24/2024 10:11 AM CAR DISTRIBUTOR 06/24/2024 10:21 AM CAR DISTRIBUTOR us Richar Mahajan MD LAB - BLOOD ORDERABLES [place] Result [facility] [place] Core Lab [address] [facility], [address] [id number] * (ABNORMAL) Manual Differential (06/23/2024 6:22 PM CAR DISTRIBUTOR) Only the most recent of2 resultswithin the time period is included. % Neutrophils 73 % 06/23/2024 7:05 PM CAR DISTRIBUTOR [facility] % Lymphocytes 24 % 06/23/2024 7:05 PM CAR DISTRIBUTOR [facility] % Monocytes 2 % 06/23/2024 7:05 PM CAR DISTRIBUTOR [facility] % Eosinophils 0 % 06/23/2024 7:05 PM CAR DISTRIBUTOR [facility] % Basophils 2 % 06/23/2024 7:05 PM CAR DISTRIBUTOR [facility] NRBCs per 100 WBC 12(H) <=0 % 06/23/2024 7:05 PM CAR DISTRIBUTOR [facility] Absolute Neutrophils 7.2 1.6 - 8.3 10e3/uL 06/23/2024 7:05 PM CAR DISTRIBUTOR [facility] Absolute Lymphocytes 2.3 0.8 - 5.3 10e3/uL 06/23/2024 7:05 PM CAR DISTRIBUTOR [facility] Absolute Monocytes 0.2 0.0 - 1.3 10e3/uL 06/23/2024 7:05 PM CAR DISTRIBUTOR [facility] Absolute Eosinophils 0.0 0.0 - 0.7 10e3/uL 06/23/2024 7:05 PM CAR DISTRIBUTOR [facility] Absolute Basophils 0.2 0.0 - 0.2 10e3/uL 06/23/2024 7:05 PM CAR DISTRIBUTOR [facility] Absolute NRBCs 1.2(H) <=0.0 10e3/uL 025 7:05 PM CAR DISTRIBUTOR [facility] RBC Morphology Confirmed RBC Indices 06/23/2024 7:05 PM CAR DISTRIBUTOR [facility] Platelet Assessment Automated Count Confirmed. Platelet morphology is normal. Automated Count Confirmed. Platelet morphology is normal. 06/23/2024 7:05 PM CAR DISTRIBUTOR [facility] Polychromasia Slight(A) None Seen 06/23/2024 7:05 PM CAR DISTRIBUTOR [facility] Sickle Cells Slight(A) None Seen 06/23/2024 7:05 PM CAR DISTRIBUTOR [facility] Target Cells Slight(A) None Seen 06/23/2024 7:05 PM CAR DISTRIBUTOR [facility] Blood BLOOD SPECIMEN / Unknown Venipuncture / Unknown 06/23/2024 6:22 PM CAR DISTRIBUTOR 06/23/2024 6:34 PM CAR DISTRIBUTOR Dayna Crane MD LAB - BLOOD ORDERABLES Final Re sult LABORATORY [facility] [place] Core Lab [address] [place] [address], [address] * (ABNORMAL) Lactate Dehydrogenase (06/20/2024 5:48 AM CAR DISTRIBUTOR) Only the most recent of4 resultswithin the time period is included. Lactate Dehydrogenase 571(H) 0 - 250 U/L 06/20/2024 6:35 AM CAR DISTRIBUTOR [facility] Blood (Portacath) IVAD (Port) / Unknown 06/20/2024 5:48 AM CAR DISTRIBUTOR 06/20/2024 5:55 AM CAR DISTRIBUTOR Polly Allen MD LAB - BLOOD ORDER SYD Final Result LABORATORY [facility] [place] Core Lab [address] [facility] [id number] [place] [address] * (ABNORMAL) RBC and Platelet Morphology (06/19/2024 9:30 AM CAR DISTRIBUTOR) Only the most recent of14 resultswithin the time period is included. RBC Morphology Confirmed RBC Indices 06/19/2024 11:43 AM CAR DISTRIBUTOR [facility] Platelet Assessment Automated Count Confirmed. Giant platelets are present.(A) Automated Count Confirmed. Platelet morphology is normal. 06/19/2024 11:43 AM CAR DISTRIBUTOR [facility] Giant Platelets Slight(A) None Seen 11:43 AM CAR DISTRIBUTOR [facility] Elliptocytes None Seen None Seen 06/19/2024 11:43 AM CAR DISTRIBUTOR [facility] Polychromasia Slight(A) None Seen 06/19/2024 11:43 AM CAR DISTRIBUTOR [facility] RBC Fragments Slight(A) None Seen 06/19/2024 11:43 AM CAR DISTRIBUTOR [facility] Reactive Lymphocytes Present(A) None Seen 06/19/2024 11:43 AM CAR DISTRIBUTOR [facility] Sickle Cells Moderate(A) None Seen 06/19/2024 11:43 AM CAR DISTRIBUTOR [facility] Smudge Cells Present(A) None Seen 06/19/2024 11:43 AM CAR DISTRIBUTOR [facility] Target Cells Moderate(A) None Seen 06/19/2024 11:43 AM CAR DISTRIBUTOR [facility] Blood CENTRAL VENOUS CATHETER / Unknown VAD(CVC, PICC) / Unknown 06/19/2024 9:30 AM CAR DISTRIBUTOR 06/19/2024 9:42 AM CAR DISTRIBUTOR Polly Allen MD LAB - BLOOD ORDER SYD Final Result [facility] LABORATORY [facility] [place] Core Lab [address] [facility] [place] [address], [facility] * (ABNORMAL) Platelet count (06/19/2024 12:17 AM CAR DISTRIBUTOR) Platelet Count 467(H) 150 - 450 10e3/uL 06/19/2024 12:44 AM CAR DISTRIBUTOR [facility] Blood BLOOD SPECIMEN / Unknown Venipuncture / Unknown 06/19/2024 12:17 AM CAR DISTRIBUTOR 06/19/2024 12:26 AM CAR DISTRIBUTOR Laquita Kelley MD LAB - BLOOD ORDERABLES Final Re sult [facility] [address], [address] [id number] [place] [address] * Creatinine (06/19/2024 12:17 AM CAR DISTRIBUTOR) Creatinine 0.72 0.51 - 0.95 mg/dL 06/19/2024 12:51 AM CAR DISTRIBUTOR [facility] GFR Estimate >90 >60 mL/min/1.7 3m2 06/19/2024 12:51 AM CAR DISTRIBUTOR [facility] Comment:eGFR calculated us2020 CKD-EPI equation. Blood BLOOD SPECIMEN / Unknown Venipuncture / Unknown 06/19/2024 12:17 AM CAR DISTRIBUTOR 06/19/2024 12:26 AM CAR DISTRIBUTOR Laquita Kelley MD LAB - BLOOD ORDERABLES Final Re sult [facility] [address], [address] * Transfuse red blood cells (unit), Sickle Cell (Hgb S) Negative (06/17/2024 2:33 PM CAR DISTRIBUTOR) Only the most recent of2 resultswithin the time period is included. Drake Nina MD BLOOD TRANSFUSION ORDERABLES Final Result * Prepare red blood cells (unit) (06/17/2024 9:12 AM CAR DISTRIBUTOR) Only the most recent of2 resultswithin the time period is included. Blood Component Type Red Blood Cells [facility] Product Code [id number] [facility] Unit Status Transfused [facility] Unit Number [id number] [facility] CROSSMATCH COMPATIBLE [facility] CODING SYSTEM [id number] [facility] B[facility] OD BANK ISSUE DATE AND TIME [id number] [facility] UNIT ABO/RH A+ [facility] UNIT TYPE ISBT 6200 [facility] 06/17/2024 9:12 AM CAR DISTRIBUTOR us Drake Nina MD BLOOD BANK PRODUCT ORDERABLES Final Result BLOOD BANK [address] [place] [address], [facility] * (ABNORMAL) Transferrin (06/17/2024 6:16 AM CAR DISTRIBUTOR) Transferrin 100.0(L) 200.0 - 360.0 mg/dL 06/17/2024 9:36 AM CAR DISTRIBUTOR [facility] Blood VENOUS LINE / Unknown IVAD (Port) / Unknown 06/17/2024 6:16 AM CAR DISTRIBUTOR 06/17/2024 6:27 AM CAR DISTRIBUTOR us Drake Nina MD LAB - BLOOD ORDERABLES Final Result Performing Organization Address City/[facility]/ZIP Co de Phone Number LABORATORY [facility] [place] [facility] Lab [address] [facility], [address] [phone] * Iron and iron binding capacity (06/17/2024 6:16 AM CAR DISTRIBUTOR) Iron 123 37 - 145 ug/dL 06/17/2024 10:02 AM CAR DISTRIBUTOR [facility] Iron Binding Capacity 06/17/2024 10:02 AM CAR DISTRIBUTOR [facility] Comment:Unable to calculate: UIBC or Iron value is outside detectable level. Iron Sat Index 06/17/2024 10:02 AM CAR DISTRIBUTOR [facility] Comment:Unable to calculate: UIBC or Iron value is outside detectable level. Blood VENOUS LINE / Unknown IVAD (Port) / Unknown 06/17/2024 6:16 AM CAR DISTRIBUTOR 06/17/2024 6:27 AM CAR DISTRIBUTOR us Drake Nina MD LAB - BLOOD ORDERABLES Final Result U LABORATORY [facility] [place] [facility] [address] [facility], [address] [id number] * (ABNORMAL) Basic metabolic panel (06/17/2024 6:16 AM CAR DISTRIBUTOR) Only the most recent of20 resultswithin the time period is included. Pathologist [facility] Sodium 134(L) 135 - 145 mmol/L 06/17/2024 6:55 AM CAR DISTRIBUTOR [facility] Potassium 4.6 3.4 - 5.3 mmol/L 06/17/2024 6:55 AM CAR DISTRIBUTOR [facility] Chloride 105 98 - 107 mmol/L 06/17/2024 6:55 AM CAR DISTRIBUTOR [facility] Carbon Dioxide (CO2) 20(L) 22 - 29 mmol/L 06/17/2024 6:55 AM CAR DISTRIBUTOR [facility] Anion Gap 9 7 - 15 mmol/L 06/17/2024 6:55 AM CAR DISTRIBUTOR [facility] Urea Nitrogen 16.1 6.0 - 20.0 mg/dL 06/17/2024 6:55 AM CAR DISTRIBUTOR [facility] Creatinine 0.90 0.51 - 0.95 mg/dL 06/17/2024 6:55 AM CAR DISTRIBUTOR [facility] GFR Estimate 88 >60 mL/min/1.7 3m2 06/17/2024 6:55 AM CAR DISTRIBUTOR [facility] Comment:eGFR calculated 2020 CKD-EPI equation. Calcium 8.4(L) 8.8 - 10.4 mg/dL 06/17/2024 6:55 AM CAR DISTRIBUTOR [facility] Glucose 95 70 - 99 mg/dL 06/17/2024 6:55 AM CAR DISTRIBUTOR [facility] Blood VENOUS LINE / Unknown IVAD (Port) / Unknown 06/17/2024 6:16 AM CAR DISTRIBUTOR 06/17/2024 6:27 AM CAR DISTRIBUTOR us Laquita Kelley MD LAB - BLOOD ORDERABLES Final Re sult [facility]ORATORY [facility] [place] [facility] [address] [facility] [address] [facility], [address] [place] [address] * (ABNORMAL) CBC with platelets (06/17/2024 6:16 AM CAR DISTRIBUTOR) Only the most recent of5 resultswithin the time period is included. Pathologist [facility] WBC Count 14.6(H) 4.0 - 11.0 10e3/uL 06/17/2024 6:38 AM CAR DISTRIBUTOR [facility] RBC Count 1.97(L) 3.80 - 5.20 10e6/uL 06/17/2024 6:38 AM CAR DISTRIBUTOR [facility] Hemoglobin 6.3(LL) 11.7 - 15.7 g/dL 06/17/2024 6:38 AM CAR DISTRIBUTOR [facility] Hematocrit 17.9(L) 35.0 - 47.0 % 06/17/2024 6:38 AM CAR DISTRIBUTOR [facility] MCV 91 78 - 100 fL 06/17/2024 6:38 AM CAR DISTRIBUTOR [facility] MCH 32.0 26.5 - 33.0 pg 06/17/2024 6:38 AM CAR DISTRIBUTOR [facility] MCHC 35.2 31.5 - 36.5 g/dL 06/17/2024 6:38 AM CAR DISTRIBUTOR [facility] RDW 20.1(H) 10.0 - 15.0 % 06/17/2024 6:38 AM CAR DISTRIBUTOR [facility] Platelet Count 468(H) 150 - 450 10e3/uL 06/17/2024 6:38 AM CAR DISTRIBUTOR [facility] Blood VENOUS LINE / Unknown IVAD (Port) / Unknown 06/17/2024 6:16 AM CAR DISTRIBUTOR 06/17/2024 6:27 AM CAR DISTRIBUTOR us Laquita Kelley MD LAB - BLOOD ORDERABLES Final Re sult [facility] LABORATORY [facility] [place] [facility] Lab [address] [facility], [address] [place] [address] * Troponin T, High Sensitivity (06/16/2024 9:33 PM CAR DISTRIBUTOR) Only the most recent of11 resultswithin the time period is included. Pathologist [facility] Troponin T, High Sensitivity 8 <=14 ng/L 06/16/2024 10:13 PM CAR DISTRIBUTOR [facility] Comment: Either a High Sensitivity [...] (Port) / Unknown 06/16/2024 9:33 PM CAR DISTRIBUTOR 06/16/2024 9:44 PM CAR DISTRIBUTOR us Varghesegiulia Schofield MD LAB - BLOOD ORDERABLE S Final Result LABORATORY [facility] Core Lab [address] [facility], [address] [phone] * Chest XR, PA & LAT (06/16/2024 6:09 PM CAR DISTRIBUTOR) Only the most recent of8 resultswithin the time period is included. Anatomical Region Laterality Modality Chest Digital Radiogra phy 06/16/2024 6:09 PM CAR DISTRIBUTOR Impressions 06/16/2024 6:13 PM CAR DISTRIBUTOR IMPRESSION: Left chest port catheter in stable position. Stable position of right central venous catheter. No airspace opacity, pleural effusion or pneumothorax. Narrative 06/16/2024 6:13 PM CAR DISTRIBUTOR EXAM: XR CHEST 2 VIEWS LOCATION: [facility] DATE: 06/16/2024 INDICATION: chest pain COMPARISON: 06/12/2024 Procedure Note Richar Haines MD - 06/16/2024 EXAM: XR CHEST 2 VIEWS LOCATION: [facility] DATE: 06/16/2024 INDICATION: chest pain COMPARISON: 06/12/2024 IMPRESSION: Left chest port catheter in stable position. Stable positionof right central venous catheter. No airspace opacity, pleural effusion orpneumothorax. us Varghese Cipriano Fariasickson MD IMG DIAGNOSTIC IMAGIN G ORDERABLES Final Result * Adult Type and Screen (06/16/2024 5:37 PM CAR DISTRIBUTOR) Only the most recent of3 resultswithin the time period is included. Pathologist [facility] ABO/RH(D) A POS 06/16/2024 5:08 PM CAR DISTRIBUTOR [facility] Antibody Screen Negative Negative 06/16/2024 5:08 PM CAR DISTRIBUTOR [facility] Comment:Current antibody scr een is negative. Patient has a history of antibody(ies). A delay in compatible red blood cells may occur. SPECIMEN EXPIRATION DATE [id number] 06/16/2024 5:08 PM CAR DISTRIBUTOR [facility] Blood BLOOD SPECIMEN / Unknown Venipuncture / Unknown 06/16/2024 5:37 PM CAR DISTRIBUTOR 06/16/2024 5:46 PM CAR DISTRIBUTOR Varghesegiulia Schofield MD LAB - BLOOD BANK TEST ORDER Final Result Performing Organization Address City/[facility]/ZIP Co de Phone Number [facility] BLOOD BANK [address] [place] [address] * (ABNORMAL) Prolactin (06/16/2024 5:37 PM CAR DISTRIBUTOR) [facility] Prolactin 55(H) 5 - 23 ng/mL 06/16/2024 6:24 PM CAR DISTRIBUTOR [facility] Blood BLOOD SPECIMEN / Unknown Venipuncture / Unknown 06/16/2024 5:37 PM CAR DISTRIBUTOR 06/16/2024 5:46 PM CAR DISTRIBUTOR Abimael Schofield MD LAB - BLOOD ORDERABLE S Final Result [facility] LABORATORY [facility] [place] [facility] Lab [address] [facility], [address] [place] [address] * Blood Culture Peripheral Blood (06/16/2024 5:37 PM CAR DISTRIBUTOR) Only the most recent of3 resultswithin the time period is included. [facility] Culture No Growth 06/21/2024 6:47 PM CAR DISTRIBUTOR [facility] Blood BLOOD SPECIMEN / Unknown Venipuncture / Unknown 06/16/2024 5:37 PM CAR DISTRIBUTOR 06/16/2024 5:47 PM CAR DISTRIBUTOR us Abimael Schofield MD LAB - MICRO GENERAL O RDERABLES Final Result Performing Organization Address [facility]/ZIP Co de Phone Number [facility] LABORATORY [facility] Inf. Diseases Diag. Lab [address] [facility], [address] [place] [address] * EKG 12 lead (06/16/2024 4:55 PM CAR DISTRIBUTOR) Only the most recent of2 resultswithin the time period is included. Systolic Blood Pressure mmHg RADIOLOGY RESULTS Diastolic Blood Pressure mmHg RADIOLOGY RESULTS Ventricular Rate 122 BPM RAD IOLOGY RESULTS Atrial Rate 122 BPM RADIOLOG Y RESULTS UT Interval 128 ms RADIOLOG Y RESULTS QRS Duration 74 ms RADIOLO GY RESULTS QT 314 ms RADIOLOGY RESULTS QTc 447 ms RADIOLOGY RESULTS P Randall 63 degrees RADIOLOGY RESULTS R AXIS 83 degrees RADIOLOGY RESULTS T Randall 29 degrees RADIOLOGY RESULTS Interpretation ECG Sinus tachycardia Otherwise normal ECG Unconfirmed report - interpretation of this ECG is computer generated - see medical record for final interpretation Confirmed by - EMERGENCY ROOM, PHYSICIAN ([id number]), newspaper copy editor KARLA WILLIAMSON ([id number]) on 06/17/2024 6:56:59 AM RADIOLOGY RESULTS 06/16/2024 4:55 PM CAR DISTRIBUTOR 06/17/2024 6:56 AM CAR DISTRIBUTOR us Varghesegiulia Schofield MD ECG ORDERABLES Edite d Result - Final Performing Organization Address City/[facility]/ZIP Co de Phone Number RADIOLOGY RESULTS * XR Chest Port 1 View (06/14/2024 8:46 AM CAR DISTRIBUTOR) Anatomical Region Laterality Modality Chest Digital Radiogra phy Impressions 06/14/2024 8:59 AM CAR DISTRIBUTOR Impression: Further increase in ill-defined opacity projecting over the right lower lung concerning for pneumonia. MARIO ALBERTO BLACKWOOD MD Narrative 06/14/2024 8:59 AM CAR DISTRIBUTOR Exam: XR CHEST PORT 1 VIEW, 06/14/2024 [...] concerning for pneumonia. MARIO ALBERTO BLACKWOOD MD [facility] Marly Allen MD IMG DIAGNOSTIC IM AGING ORDERABLES Final Result * Respiratory Panel PCR (06/12/2024 9:34 PM CAR DISTRIBUTOR) Adenovirus Not Detected Not Detected 06/12/2024 11:53 PM CAR DISTRIBUTOR [facility] Coronavirus Not Detected Not Detected 06/12/2024 11:53 PM CAR DISTRIBUTOR [facility] Comment:This test detects Co ronavirus 229E, HKU1, NL63 and OC43 but does not distinguish between them. It does not detect MERS ( Respiratory Syndrome), SARS (Severe Acute Respiratory Syndrome) or 2019-nCoV (Novel 2019) Coronavirus. Human Metapneumovirus Not Detected Not Detected 06/12/2024 11:53 PM CAR DISTRIBUTOR [facility] Human Rhin/Enterovirus Not Detected Not Detected 06/12/2024 11:53 PM CAR DISTRIBUTOR [facility] Influenza A Not Detected Not Detected 06/12/2024 11:53 PM CAR DISTRIBUTOR [facility] Influenza A, H1 Not Detected Not Detected 06/12/2024 11:53 PM CAR DISTRIBUTOR [facility] Influenza A 2009 H1N1 Not Detected Not Detected 06/12/2024 11:53 PM CAR DISTRIBUTOR [facility] Influenza A, H3 Not Detected Not Detected 06/12/2024 11:53 PM CAR DISTRIBUTOR [facility] Influenza B Not Detected Not Detected 06/12/2024 11:53 PM CAR DISTRIBUTOR [facility] Parainfluenza Virus 1 Not Detected Not Detected 06/12/2024 11:53 PM CAR DISTRIBUTOR [facility] Parainfluenza Virus 2 Not Detected Not Detected 06/12/2024 11:53 PM CAR DISTRIBUTOR [facility] Parainfluenza Virus 3 Not Detected Not Detected 06/12/2024 11:53 PM CAR DISTRIBUTOR [facility] Parainfluenza Virus 4 Not Detected Not Detected 06/12/2024 11:53 PM CAR DISTRIBUTOR [facility] Respiratory Syncytial Virus A Not Detected Not Detected 06/12/2024 11:53 PM CAR DISTRIBUTOR [facility] Respiratory Syncytial Virus B Not Detected Not Detected 06/12/2024 11:53 PM CAR DISTRIBUTOR [facility] Chlamydia Pneumoniae Not Detected Not Detected 06/12/2024 11:53 PM CAR DISTRIBUTOR [facility] Mycoplasma Pneumoniae Not Detected Not Detected 06/12/2024 11:53 PM CAR DISTRIBUTOR [facility] Swab NASOPHARYNGEAL STRUCTURE / Unknown Non-blood Collection / Unknown 06/12/2024 9:34 PM CAR DISTRIBUTOR 06/12/2024 9:47 PM CAR DISTRIBUTOR Narrative [facility] - 06/12/2024 11:53 PM CAR DISTRIBUTOR The ePlex Respiratory Panel is a qualitative nucleic acid, multiplex, in vitro diagnostic test for the simultaneous detection and identification of multiple respiratory viral and bacterial nucleic acids in nasopharyngeal swabs collected in viral transport media from individual exhibiting signs and symptoms of respiratory infection. The assay has received FDA approval for the testing of nasopharyngeal (UNDERCOATER) swabs only. This test is used for clinical purposes and should not be regarded as investigational or for research. This laboratory is certified under the Clinical Laboratory Improvement Amendments of 1988 (CLIA-88) as qualified to perform high complexity clinical laboratory testing. Abdelrahman Goddard MD LAB - MICRO GENERAL ORDERABLES Final Result [facility]ORAT[facility] Inf. Diseases Diag. Lab [address] [facility], [address] [place] [address] * (ABNORMAL) Blood gas venous (06/12/2024 7:17 PM CAR DISTRIBUTOR) pH Venous 7.38 7.32 - 7.43 06/12/2024 7:40 PM CAR DISTRIBUTOR [facility] pCO2 Venous 42 40 - 50 mm Hg 06/12/2024 7:40 PM CAR DISTRIBUTOR [facility] pO2 Venous 35 25 - 47 mm Hg 06/12/2024 7:40 PM CAR DISTRIBUTOR [facility] Bicarbonate Venous 24 21 - 28 mmol/L 06/12/2024 7:40 PM CAR DISTRIBUTOR [facility] Base Excess/Deficit Venous -0.9 -3.0 - 3.0 mmol/L 06/12/2024 7:40 PM CAR DISTRIBUTOR [facility] FIO2 21 JARET 06/12/2024 7:40 PM CAR DISTRIBUTOR [facility] Oxyhemoglobin Venous 61(L) 70 - 75 % 06/12/2024 7:40 PM CAR DISTRIBUTOR [facility] O2 Sat, Venous 63.9(L) 70.0 - 75.0 % 06/12/2024 7:40 PM CAR DISTRIBUTOR [facility] Blood, venous VENOUS LINE / Unknown Venipuncture / Unknown 06/12/2024 7:17 PM CAR DISTRIBUTOR 06/12/2024 7:30 PM CAR DISTRIBUTOR Narrative [facility] - 06/12/2024 7:40 PM CAR DISTRIBUTOR In healthy individuals, oxyhemoglobin (O2Hb) and oxygen saturation (SO2) are approximately equal. In the presence of dyshemoglobins, oxyhemoglobin can be considerably lower than oxygen saturation. us Abdelrahman Goddard MD LAB - BLOOD ORDERABLES Final R esult [facility] LABORATORY [facility] [place] Core Lab [address] [facility] [place] [address], [facility] * ECG 12-LEAD WITH MUSE (LHE) (06/11/2024 9:04 PM CAR DISTRIBUTOR) Only the most recent of15 resultswithin the time period is included. Systolic Blood Pressure mmHg RADIOLOGY RESULTS Diastolic Blood Pressure mmHg RADIOLOGY RESULTS Ventricular Rate 102 BPM RAD IOLOGY RESULTS Atrial Rate 102 BPM RADIOLOG Y RESULTS UT Interval 158 ms RADIOLOG Y RESULTS QRS Duration 78 ms RADIOLO GY RESULTS QT 348 ms RADIOLOGY RESULTS QTc 453 ms RADIOLOGY RESULTS P Randall 39 degrees RADIOLOGY RESULTS R AXIS 66 degrees RADIOLOGY RESULTS T Randall 33 degrees RADIOLOGY RESULTS Interpretation ECG Sinus tachycardia Nonspecific T wave abnormality Abnormal ECG When compared with ECG of 05-Jun-2024 11:40, No significant change was found Confirmed by SEE ED PROVIDER NOTE FOR, ECG INTERPRETATION ([id number]), newspaper copy editor SELMA GARRISON ([id number]) on 06/11/2024 9:05:27 PM RADIOLOGY RESULTS 06/11/2024 9:04 PM CAR DISTRIBUTOR 06/11/2024 9:05 PM CAR DISTRIBUTOR us Deshawn Arredondo MD ECG ORDERABLES Edited Resu lt - Final RADIOLOGY RESULTS * Influenza A/B, RSV and SARS-CoV2 PCR (COVID-19) Nasopharyngeal (06/07/2024 1:15 PM CAR DISTRIBUTOR) Only the most recent of3 resultswithin the time period is included. Influenza A PCR Negative Negative 06/07/2024 3:32 PM CAR DISTRIBUTOR [facility] Influenza B PCR Negative Negative 06/07/2024 3:32 PM CAR DISTRIBUTOR [facility] RSV PCR Negative Negative 06/07/2024 3:32 PM CAR DISTRIBUTOR [facility] SARS CoV2 PCR Negative Negative 06/07/2024 3:32 PM CAR DISTRIBUTOR [facility] Comment:NEGATIVE: SARS-CoV-2 (COVID-19) RNA not detected, presumed negative. Swab NASOPHARYNGEAL STRUCTURE / Unknown Non-blood Collection / Unknown 06/07/2024 1:15 PM CAR DISTRIBUTOR 06/07/2024 1:36 PM CAR DISTRIBUTOR Narrative [facility] - 06/07/2024 3:32 PM CAR DISTRIBUTOR Testing was performed using the Xpert Xpress CoV2/Flu/RSV Assay on the [employer] GeneXpert Instrument. This test should be ordered [...] management. This test was validated by the [facility]. These laboratories are certified under the Clinical Laboratory Improvement Amendments of 1988 (CLIA-88) as qualified to perfom high complexity laboratory testing. Case Samuel MD LAB - MICRO GENERAL ORDER SYD Final Result [facility]ORATORY [facility] Inf. Diseases Diag. Lab [address] [facility], [address] [place] [phone] * HGB Eval Reflex to ELP or RBC Solubility (05/29/2024 11:23 AM CAR DISTRIBUTOR) Alpha Globin (HBA1 and HBA2) DD Bill Billed 05/31/2024 2:46 PM CAR DISTRIBUTOR [facility] Comment: Performed By: [facility] [address] [place] [address] Customer Care Team Coach: Devon Healy MD, PhD CLIA Number: [id number] Blood VENOUS LINE / Unknown IVAD (Port) / Unknown 05/29/2024 11:23 AM CAR DISTRIBUTOR 05/29/2024 11:30 AM CAR DISTRIBUTOR Case Saumel MD LAB CHARGE PERFORMABLES F inal Result [facility] [address] [place] [address], [facility] [phone] * Bill Only- Sickle Solubility Bill (05/29/2024 11:23 AM CAR DISTRIBUTOR) Sickle Solubility Reflex Bill Billed 05/31/2024 2:46 PM CAR DISTRIBUTOR [facility] Comment: Performed By: [facility] [address] [place] [address] Customer Care Team Coach: Devon Healy MD, PhD CLIA Number: [id number] Blood VENOUS LINE / Unknown IVAD (Port) / Unknown 05/29/2024 11:23 AM CAR DISTRIBUTOR 05/29/2024 11:30 AM CAR DISTRIBUTOR Case Samuel MD LAB CHARGE PERFORMABLES F inal Result [facility] [address] [place] [address], [facility] [phone] * Genotype Red Blood Cell (05/29/2024 11:23 AM CAR DISTRIBUTOR) See Scanned Result GENOTYPE RED BLOOD CELL-Scanned 05/31/2024 10:16 AM CAR DISTRIBUTOR [facility] Blood VENOUS LINE / Unknown IVAD (Port) / Unknown 05/29/2024 11:23 AM CAR DISTRIBUTOR 05/29/2024 11:29 AM CAR DISTRIBUTOR Case Samuel MD LAB - BLOOD ORDERABLES Fi nal Result Performing Organization Address [facility]/[place] [address], [facility] [phone] * (ABNORMAL) HGB Eval Reflex to ELP or RBC Solubility (05/29/2024 11:23 AM CAR DISTRIBUTOR) Hemoglobin A 15.0(L) 95.0 - 97.9 % 05/31/2024 2:46 PM CAR DISTRIBUTOR [facility] Hemoglobin A2 3.0 2.0 - 3.5 % 05/31/2024 2:46 PM CAR DISTRIBUTOR [facility] Hemoglobin F 10.8(H) 0.0 - 2.1 % 05/31/2024 2:46 PM CAR DISTRIBUTOR [facility] Hemoglobin S 71.2(H) 0.0 - 0.0 % 05/31/2024 2:46 PM CAR DISTRIBUTOR [facility] Hemoglobin C 0.0 0.0 - 0.0 % 05/31/2024 2:46 PM CAR DISTRIBUTOR [facility] Hemoglobin E 0.0 0.0 - 0.0 % 05/31/2024 2:46 PM CAR DISTRIBUTOR [facility] Hemoglobin - Other 0.0 0.0 - 0.0 % 05/31/2024 2:46 PM [facility] Hemoglobin Evaluation See Note 05/31/2024 2:46 PM CAR DISTRIBUTOR [facility] Comment: Impression: Hb S present Laboratory [...] by Alpha Globin (HBA1 and HBA2) Deletion/Duplication ([employer] test #1092078) should be considered. Hb S/beta-plus thalassemia is typically characterized by more Hb S than Hb A with the presence of microcytosis. If microcytosis is present and Hb S/beta-plus thalassemia is suspected, Beta Globin (HBB) Sequencing ([employer] test #5012695) is suggested. Hemoglobin analysis should be offered [...] developed and its performance characteristics determined by [facility]. It has not been cleared or approved by the U.S. Food and Drug Administration. This test was performed in a CLIA-certified laboratory and is intended for clinical purposes. Sickle Cell Solubility Reflex Positive(A) 05/31/2024 2:46 PM CAR DISTRIBUTOR [facility] Comment: INTERPRETIVE INFORMATION: Sickle Cell Solubility Reflex Not Performed: Solubility testing for Hemoglobin S not indicated. 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 Additional charges apply. Conf Previous: Positive for Hemoglobin S by HPLC. Solubility testing performed previously and not repeated with this submission. Hgb Capillary Electrophoresis Reflex Performed 05/31/2024 2:46 PM CAR DISTRIBUTOR [facility] Comment: INTERPRETIVE INFORMATION: Hgb Capillary Electrophoresis Reflex Not Performed: Confirmation by Capillary Electrophoresis not indicated. Performed: Results confirmed by Capillary Electrophoresis. Additional charges apply. Conf Previous: Capillary Electrophoresis confirmation performed as part of a previous submission. Confirmation not repeated with this submission. Performed By: [facility] [address] [place] [address] Customer Care Team Coach: Devon Healy MD, PhD CLIA Number: [id number] Blood VENOUS LINE / Unknown IVAD (Port) / Unknown 05/29/2024 11:23 AM CAR DISTRIBUTOR 05/29/2024 11:30 AM CAR DISTRIBUTOR Case Samuel MD LAB - BLOOD ORDERABLES Fi nal Result Performing Organization Address City/[facility]/ZIP Co de Phone Number [facility] [address] [place] [address], [facility] [phone] * (ABNORMAL) Ferritin (05/29/2024 11:23 AM CAR DISTRIBUTOR) Ferritin 1,559(H) 6 - 175 ng/mL 05/29/2024 12:43 PM CAR DISTRIBUTOR [facility] Blood VENOUS LINE / Unknown IVAD (Port) / Unknown 05/29/2024 11:23 AM CAR DISTRIBUTOR 05/29/2024 11:29 AM CAR DISTRIBUTOR us Case Samuel MD LAB - BLOOD ORDERABLES Fi nal Result [facility] [address] [place] [address] * Urine Culture (05/29/2024 11:23 AM CAR DISTRIBUTOR) Culture <10,000 CFU/mL Mixture of Urogenital Vickie 05/30/2024 9:45 AM CAR DISTRIBUTOR [facility] Urine URINE SPECIMEN OBTAINED BY CLEAN CATCH PROCEDURE / Unknown Non-blood Collection / Unknown 05/29/2024 11:23 AM CAR DISTRIBUTOR 05/29/2024 11:41 AM CAR DISTRIBUTOR us Case Samuel MD LAB - MICRO GENERAL ORDER SYD Final Result [facility] Inf. Diseases Diag. Lab [address] [facility], [address] [place] [address] * (ABNORMAL) Manual Differential (05/29/2024 12:53 AM CAR DISTRIBUTOR) Only the most recent of8 resultswithin the time period is included. Pathologist [facility] % Neutrophils 54 % JARET 05/29/2024 1:58 AM [facility] % Lymphocytes 34 % JARET 05/29/2024 1:58 AM [facility] % Monocytes 10 % JARET 05/29/2024 1:58 AM [facility] % Eosinophils 1 % JARET 05/29/2024 1:58 AM [facility] % Basophils 1 % JARET 05/29/2024 1:58 AM [facility] Absolute Neutrophils 8.4(H) 1.6 - 8.3 10e3/uL JARET 05/29/2024 1:58 AM [facility] Absolute Lymphocytes 5.3 0.8 - 5.3 10e3/uL JARET 05/29/2024 1:58 AM [facility] Absolute Monocytes 1.6(H) 0.0 - 1.3 10e3/uL JARET 05/29/2024 1:58 AM [facility] Absolute Eosinophils 0.2 0.0 - 0.7 10e3/uL JARET 05/29/2024 1:58 AM [facility] Absolute Basophils 0.2 0.0 - 0.2 10e3/uL JARET 05/29/2024 1:58 AM [facility] NRBCs per 100 WBC 3 % JARET 05/29/2024 1:58 AM [facility] Absolute NRBCs 0.5 10e3/uL JARET 05/29/2024 1:58 AM [facility] RBC Morphology Confirmed RBC Indices JARET 05/29/2024 1:58 AM [facility] Platelet Assessment Automated Count Confirmed. Platelet morphology is normal. Automated Count Confirmed. Platelet morphology is normal. JARET 05/29/2024 1:58 AM [facility] Polychromasia Moderate(A) None Seen JARET 05/29/2024 1:58 AM CAR DISTRIBUTOR [facility] Sickle Cells Moderate(A) None Seen [facility] 05/29/2024 1:58 AM CAR DISTRIBUTOR [facility] Blood VENOUS LINE / Unknown Venipuncture / Unknown 05/29/2024 12:53 AM CAR DISTRIBUTOR 05/29/2024 12:58 AM CAR DISTRIBUTOR us Lenin Smith MD LAB - BLOOD ORDERABLES Final Result [facility] [address] [place] [address], [facility] * IR Procedure Note (05/25/2024 2:54 PM CAR DISTRIBUTOR) Narrative Myron Michel MD - 05/25/2024 2:54 PM CAR DISTRIBUTOR Myron Michel MD 05/25/2024 2:55 PM [facility] [facility] Procedure: IR Procedure Note Date/Time: 05/25/2024 [...] the procedure a time out was called [place] Protocol: the Joint Commission [place] Protocol was followed Preparation: Patient was prepped and draped in usual sterile fashion ANESTHESIA Anesthesia: Local infiltration Local Anesthetic: Lidocaine 1% without epinephrine SEDATION Patient Sedated: Yes Sedation Type: Moderate (conscious) sedation Sedation: Fentanyl and midazolam Vital signs: Vital signs monitored during sedation See dictated procedure note for full details. Findings: Successful bilateral port placement apheresis on the right, 6 kittitian smart port on the left Specimens: none Procedural Complications: None Condition: Stable Plan: 1 hour bedrest then okay to discharge PROCEDURE Describe Procedure: Successful bilateral port placement apheresis on the right, 6 kittitian smart port on the left Patient Tolerance: Patient tolerated the procedure well with no immediate complications Length of time physician/provider present for 1:1 monitoring during sedation: 83-97 min us Myron Michel MD PROCEDURE/MINOR SURGICAL ORDERA BLES Final Result * IR Chest Port Placement > 5 Yrs of Age (05/25/2024 2:47 PM CAR DISTRIBUTOR) Only the most recent of2 resultswithin the time period is included. Anatomical Region Laterality Modality Chest Radio Fluoroscop y Impressions 05/25/2024 5:26 PM CAR DISTRIBUTOR IMPRESSION: Insertion of right-sided apheresis chest port, [...] mg Versed Sedation time: 97 minutes ATTENDING [id number] SEDATION TIME: less than 5 minutes. Access [...] placed: BD PowerFlow apheresis port Catheter size (Guatemalan): 9.6 Lumens: Single-lumen Power injectable: Yes Catheter [...] COOPER MD Narrative 05/25/2024 5:26 PM CAR DISTRIBUTOR PROCEDURE: Venous port placement Procedural Personnel Attending physician(s): Jaswinder Cooper Fellow physician(s): Myron Michel Resident physician(s): None Advanced practice provider(s): None JASWINDER Long MD, attest that I was present for all critical portions of the procedure and was immediately available to provide guidance and assistance during the remainder of the procedure. Procedure Date (mm/dd/yyyy): 05/25/2024 Pre-procedure diagnosis: Sickle cell Post-procedure diagnosis: Same Indication: Other- Additional clinical history: None Complications: No immediate complications. Procedure Note Jaswinder Cooper MD - 05/25/2024 PROCEDURE: Venous port placement Procedural Personnel Attending physician(s): Jaswinder Cooper Fellow physician(s): Myron Michel Resident physician(s): None Advanced practice provider(s): Scott I, JASWINDER COOPER MD, attest that I was present for all critical portions of the procedure and was immediately available to provide guidance and assistance during the remainder of the procedure. Procedure Date (/yyy): 05/25/2024 Pre-procedure diagnosis: Sickle cell Post-procedure diagnosis: [...] mg Versed Sedation time: 97 minutes ATTENDING [id number] SEDATION TIME: less than 5 minutes. Access [...] placed: BD PowerFlow apheresis port Catheter size (Guatemalan): 9.6 Lumens: Single-lumen Power injectable: Yes Catheter [...] agree with the findings. JASWINDER COOPER MD Case Samuel MD [facility] IR ORDERABLES Final R esult * HCG qualitative urine (05/25/2024 12:03 PM CAR DISTRIBUTOR) Only the most recent of2 resultswithin the time period is included. hCG Urine Qualitative Negative Negative JARET 05/25/2024 12:34 PM CAR DISTRIBUTOR [facility] Comment:This test is for scr eening purposes. Results should be interpreted along with the clinical picture. Confirmation testing is available if warranted by ordering [id number], HCG Quantitative . Urine MID-STREAM URINE SPECIMEN / Unknown Non-blood Collection / Unknown 05/25/2024 12:03 PM CAR DISTRIBUTOR 05/25/2024 12:19 PM CAR DISTRIBUTOR us Jaswinder Cooper MD LAB - URINE ORDERABLES Liss bola Result [facility] [place] [facility] [address] [facility] [address] [facility], Room [address] [id number] * CT Chest Pulmonary Embolism w Contrast (05/23/2024 9:33 PM CAR DISTRIBUTOR) Only the most recent of2 resultswithin the time period is included. Anatomical Region Laterality Modality Chest, SUBRAD CT BODY, UMP CT CHEST Computed Tomography 05/23/2024 9:33 PM CAR DISTRIBUTOR Impressions 05/23/2024 10:12 PM CAR DISTRIBUTOR IMPRESSION: 1. Bilateral pulmonary nodules stable since [...] noted above. Narrative 05/23/2024 10:12 PM CAR DISTRIBUTOR EXAM: CT CHEST PULMONARY EMBOLISM W CONTRAST LOCATION: [facility] DATE: 05/23/2024 INDICATION: patient with sickle cell. acute chest pain similar to pe in the past. COMPARISON: Chest x-ray 05/22/2024, CTA chest 05/04/2024 and 03/15/2024. Report of CT chest from [facility] from 03/13/2023 is also available. TECHNIQUE: CT [...] CT CHEST PULMONARY EMBOLISM W CONTRAST LOCATION: [facility] DATE: 05/23/2024 INDICATION: patient with sickle cell. acute chest pain similar to pe inthe past. COMPARISON: Chest x-ray 05/22/2024, CTA chest 05/04/2024 and 03/15/2024.Report of CT chest from [facility] from 03/13/2023 is alsoavailable. TECHNIQUE: CT chest [...] pro BNP outpatient (05/23/2024 9:02 PM CAR DISTRIBUTOR) N Terminal Pro BNP Outpatient 74 [id number] - 450 pg/mL 05/23/2024 9:39 PM CAR DISTRIBUTOR [facility] Comment: Reference range shown and [...] Venipuncture / Unknown 05/23/2024 9:02 PM CAR DISTRIBUTOR 05/23/2024 9:10 PM CAR DISTRIBUTOR us Marilia Summers MD LAB - BLOOD ORDERABLES Final Result [facility] [address] [place] [address], [place] * Extra Green Top (Branch Heparin) Tube (05/20/2024 9:09 AM CAR DISTRIBUTOR) Hold Specimen JIC 05/20/2024 10:16 AM CAR DISTRIBUTOR [facility] Blood VENOUS LINE / Unknown Venipuncture / Unknown 05/20/2024 9:09 AM CAR DISTRIBUTOR 05/20/2024 9:14 AM CAR DISTRIBUTOR us Deshawn Arredondo MD LAB - BLOOD ORDERABLES Liss l Result Performing Organization Address [facility] de Phone Number [facility] Critical access hospital [facility] [place] [address] * (ABNORMAL) Hepatic function panel (05/19/2024 3:05 AM CAR DISTRIBUTOR) Only the most recent of4 resultswithin the time period is included. Protein Total 7.9 6.4 - 8.3 g/dL 05/19/2024 3:37 AM [facility] Albumin 4.3 3.5 - 5.2 g/dL 05/19/2024 3:37 AM [facility] Bilirubin Total 2.6(H) <=1.2 mg/dL 05/19/2024 3:37 AM [facility] Alkaline Phosphatase 128 40 - 150 U/L 05/19/2024 3:37 AM [facility] AST 67(H) 0 - 45 U/L 05/19/2024 3:37 AM [facility] ALT 39 0 - 50 U/L 05/19/2024 3:37 AM [facility] Bilirubin Direct 0.65(H) 0.00 - 0.30 mg/dL 05/19/2024 3:37 AM [facility] Blood VENOUS LINE / Unknown Venipuncture / Unknown 05/19/2024 3:05 AM CAR DISTRIBUTOR 05/19/2024 3:18 AM CAR DISTRIBUTOR us Marilia Summers MD LAB - BLOOD ORDERABLES Final Result Performing Organization Address [facility]/ZIP Co de Phone Number [facility] [address] [place] [address], [facility] * (ABNORMAL) CK total (05/19/2024 3:05 AM CAR DISTRIBUTOR) CK 240(H) 26 - 192 U/L 05/19/2024 3:37 AM [facility] Blood VENOUS LINE / Unknown Venipuncture / Unknown 05/19/2024 3:05 AM CAR DISTRIBUTOR 05/19/2024 3:18 AM CAR DISTRIBUTOR us Marilia Summers MD LAB - BLOOD ORDERABLES Final Result Performing Organization Address City/[facility]/ZIP Co de Phone Number [facility] Critical [facility] hospital [facility] [address] [place] [address], [facility] * Extra Purple Top Tube (05/13/2024 6:17 PM CAR DISTRIBUTOR) Hold Specimen JIC 05/13/2024 7:31 PM CAR DISTRIBUTOR [facility] Blood STRUCTURE OF RIGHT UPPER LIMB / Unknown Venipuncture / Unknown 05/13/2024 6:17 PM CAR DISTRIBUTOR 05/13/2024 6:23 PM CAR DISTRIBUTOR us Shaheen Unger MD LAB - BLOOD ORDERABLES Final Res ult Performing Organization Address [facility] Co de Phone Number [facility] [address] [place] [address], [facility] * (ABNORMAL) Vitamin D deficiency screening (04/28/2024 1:50 AM CAR DISTRIBUTOR) Vitamin D, Total (25-Hydroxy) 8(L) 20 - 50 ng/mL 05/01/2024 6:42 PM CAR DISTRIBUTOR LABORATORY Comment:severe deficiency Blood BLOOD SPECIMEN / Unknown Venipuncture / Unknown 04/28/2024 1:50 AM CAR DISTRIBUTOR 04/28/2024 1:53 AM CAR DISTRIBUTOR Narrative LABORATORY - 05/01/2024 6:42 PM CAR DISTRIBUTOR Season, race, dietary intake, and treatment affect the concentration of 90-[id number]-[id number] D. Values may decrease during winter months and increase during summer months. Vitamin D determination is routinely performed by an immunoassay specific for 25 hydroxyvitamin D3. If an individual is on vitamin D2(ergocalciferol) supplementation, please specify 25 [place] vitamin D2 and D3 level determination by LCMSMS test [id number]. us Case Samuel MD LAB - BLOOD ORDERABLES Fi nal Result [facility] [place] [facility] [address], [address] [place] [id number] * CT Pelvis Bone wo Contrast (04/19/2024 3:22 AM CAR DISTRIBUTOR) Anatomical Region Laterality Modality Abdomen/Pelvis, SUBRAD CT MS K, UMP CT ABDOMEN PELVIS, SUBRAD CT BODY, RAD CT Computed Tomography 04/19/2024 3:22 AM CAR DISTRIBUTOR Impressions 04/19/2024 4:06 AM CAR DISTRIBUTOR IMPRESSION: 1. Sclerosis involving the left femoral [...] femoral head. Narrative 04/19/2024 4:06 AM CAR DISTRIBUTOR EXAM: CT PELVIS BONE WO CONTRAST LOCATION: [facility] DATE: 04/19/2024 INDICATION: Eval L hip pain, [...] is a subtle curvilinear subarticular fracture line (5/57 and 2/69). -Well-corticated osseous density along the anterior aspect [...] EXAM: CT PELVIS BONE WO CONTRAST LOCATION: [facility] DATE: 04/19/2024 INDICATION: Eval L hip pain, [...] is a subtle curvilinear subarticular fracture line (5/ and /). 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 us Juan Rodriguez MD IM CT ORDERABLES F inal Result * Extra Red Top Tube (04/08/2024 10:22 PM CAR DISTRIBUTOR) [facility] Hold Specimen [facility] 04/08/2024 11:31 PM CAR DISTRIBUTOR [facility] Blood STRUCTURE OF LEFT UPPER LIMB / Unknown Venipuncture / Unknown 04/08/2024 10:22 PM CAR DISTRIBUTOR 04/08/2024 10:30 PM CAR DISTRIBUTOR Deshawn Arredondo MD LAB - BLOOD ORDERABLES Liss l Result [facility] [address] [place] [address], [place] * Extra Blue Top Tube (04/08/2024 10:22 PM CAR DISTRIBUTOR) Hold Specimen JIC 04/08/2024 11:31 PM CAR DISTRIBUTOR [facility] Blood STRUCTURE OF LEFT UPPER LIMB / Unknown Venipuncture / Unknown 04/08/2024 10:22 PM CAR DISTRIBUTOR 04/08/2024 10:30 PM CAR DISTRIBUTOR Deshawn Arredondo MD LAB - BLOOD ORDERABLES Liss l Result Performing Organization Address [facility] Co de Phone Number [facility] [address] [place] [place] [address], [facility] * (ABNORMAL) D dimer quantitative (04/06/2024 12:45 AM CAR DISTRIBUTOR) [facility] D-Dimer Quantitative 1.25(H) 0.00 - 0.50 ug/mL FEU 04/06/2024 1:06 AM CAR DISTRIBUTOR [facility] Blood BLOOD SPECIMEN / Unknown Venipuncture / Unknown 04/06/2024 12:45 AM CAR DISTRIBUTOR 04/06/2024 12:52 AM CAR DISTRIBUTOR Narrative [facility] - 04/06/2024 1:06 AM CAR DISTRIBUTOR This D-dimer assay is intended for use in conjunction with a clinical pretest probability assessment model to exclude pulmonary embolism (PE) and deep venous thrombosis (DVT) in outpatients suspected of PE or DVT. The cut-off value is 0.50 ug/mL FEU. Guille Davis DO LAB - BLOOD ORDERABLES Fin al Result Performing Organization Address City/[facility]/ZIP Co de Phone Number [facility] [address] [place] [address], [facility] from Last 3 Months Insurance [place] [id number] [place] [id number] [place] Advance Directives For more information, please contact: [phone] * Full Code (Latest Code Status on [...] patie nt/ legal decision maker Care Teams Wire Spinner Relationship Specialty Start Date End Date Veronica Joseph MD [address] [place] [address] PCP - General Family Medicine 06/18/24 Mor Ramsey Medical Student 04/03/24 Case Samuel MD [address] [place] [address] [address], [address] [place] [address] Assigned Pediatric Specialist Provider 05/18/24 Juhi Benson, RN Specialty [employer] Outreach Specialist Hematology & Oncology 05/29/24
--- OUTSIDE RECORDS SUMMARY | 2024-06-24 20:12 | XMS_ITS | Encounter Summary ---
Author Organization [facility] Address [address] [place] [address] Care Team Providers Care Esl Professor Name Role Phone R[employer]El[employer] Unavailable Unavailable Case Samuel MD Unavailable [phone] Juhi Benson RN Unavailable Unavailable Veronica Joseph MD Primary Care Provider [phone] Reason for Visit * Reason Comments Sickle Cell Pain Crisis Pt reports pain in her back and b/l lower extremities. Encounter Details Date Type Department Care Team (Late st Contact Info) Description 06/24/2024 9:28 AM VAN CDL DRIVER - 06/24/2024 1:05 PM VAN CDL DRIVER Emergency [facility] Emergency Department [address] [place] [phone] Richar Mahajan MD [address] [place] [phone] Sickle cell disease with crisis (H) Discharge [...] in an overnight fdc, or couch-surfing.) Yes 06/20/2024 Are you worried [...] on file Legal Sex Female 8:25 AM VAN CDL DRIVER Gender Identity Not on file Sexual Orientation Not on file documented as of this encounter Last Filed Vital Signs Vital Sign Reading Time Taken Comments Blood Pressure 111/67 06/24/2024 11:56 AM VAN CDL DRIVER Pulse 101 06/24/2024 12:11 PM VAN CDL DRIVER Temperature 36.9 C (98.4 F) 06/24/2024 9:26 AM VAN CDL DRIVER Respiratory Rate 16 06/24/2024 9:26 AM VAN CDL DRIVER Oxygen Saturation 100% 06/24/2024 12:11 PM VAN CDL DRIVER Inhaled Oxygen Concentration - - Weight 52.2 kg (115 lb) 06/24/2024 9:26 AM VAN CDL DRIVER Height 154.9 cm (5' 1) 06/24/2024 9:26 AM VAN CDL DRIVER Body Mass Index 21.73 06/24/2024 9:26 AM VAN CDL DRIVER documented in this encounter Discharge Instructions * Discharge Instructions* Richar Mahajan MD - 06/24/2024 12:57 PM VAN CDL DRIVER Home. Continue home care. Follow up with infusion center or return if concerns. Results for orders placed or performed during the hospital encounter of 06/24/24 Partial thromboplastin time Status: Normal Result Value Ref Range aPTT 32 22 - 38 Seconds INR Status: Abnormal Result Value Ref Range INR 1.45 (H) 0.85 - 1.15 Comprehensive metabolic panel Status: Abnormal Result Value Ref Range Sodium 138 135 - 145 mmol/L Potassium 4.3 3.4 - 5.3 mmol/L Carbon Dioxide (CO2) 20 (L) 22 - 29 mmol/L Anion Gap 10 7 - 15 mmol/L Urea Nitrogen 9.9 6.0 - 20.0 mg/dL Creatinine 0.62 0.51 - 0.95 mg/dL GFR Estimate >90 >60 mL/min/1.73m2 Calcium 8.7 (L) 8.8 - 10.4 mg/dL Chloride 108 (H) 98 - 107 mmol/L Glucose 98 70 - 99 mg/dL Alkaline Phosphatase 119 40 - 150 U/L AST 57 (H) 0 - 45 U/L ALT 53 (H) 0 - 50 U/L Protein Total 7.4 6.4 - 8.3 g/dL Albumin 4.0 3.5 - 5.2 g/dL Bilirubin Total 1.1 <=1.2 mg/dL Magnesium Status: Normal Result Value Ref Range Magnesium 2.1 1.7 - 2.3 mg/dL HCG qualitative Blood Status: Normal Result Value Ref Range hCG Serum Qualitative Negative Negative UA with Microscopic reflex to Culture Status: Abnormal Specimen: Urine, Midstream Result Value Ref Range Color Urine Light Yellow Colorless, Straw, Light Yellow, Yellow Appearance Urine Clear Clear Glucose Urine Negative Negative mg/dL Bilirubin Urine Negative Negative Ketones Urine Negative Negative mg/dL Specific [place] Urine 1.009 1.003 - 1.035 Blood Urine Negative Negative pH Urine 7.5 (H) 5.0 - 7.0 Protein Albumin Urine Negative Negative mg/dL Urobilinogen Urine Normal Normal, 2.0 mg/dL Nitrite Urine Negative Negative Leukocyte Esterase Urine Negative Negative RBC Urine <1 <=2 /HPF WBC Urine <1 <=5 /HPF Squamous Epithelials Urine 11 (H) <=1 /HPF Hyaline Casts Urine 1 <=2 /LPF Narrative Urine Culture not indicated Reticulocyte count Status: Abnormal Result Value Ref Range % Reticulocyte 11.2 (H) 0.5 - 2.0 % Absolute Reticulocyte 0.280 (H) 0.025 - 0.095 10e6/uL CBC with platelets and differential Status: Abnormal Result Value Ref Range WBC Count 7.8 4.0 - 11.0 10e3/uL RBC Count 2.49 (L) 3.80 - 5.20 10e6/uL Hemoglobin 7.9 (L) 11.7 - 15.7 g/dL Hematocrit 24.8 (L) 35.0 - 47.0 % MCV 100 78 - 100 fL MCH 31.7 26.5 - 33.0 pg MCHC 31.9 31.5 - 36.5 g/dL RDW 19.0 (H) 10.0 - 15.0 % Platelet Count 482 (H) 150 - 450 10e3/uL % Neutrophils 61 % % Lymphocytes 26 % % Monocytes 9 % % Eosinophils 1 % % Basophils 2 % % Immature Granulocytes 1 % NRBCs per 100 WBC 5 (H) <1 /100 Absolute Neutrophils 4.8 1.6 - 8.3 10e3/uL Absolute Lymphocytes 2.1 0.8 - 5.3 10e3/uL Absolute Monocytes 0.7 0.0 - 1.3 10e3/uL Absolute Eosinophils 0.1 0.0 - 0.7 10e3/uL Absolute Basophils 0.1 0.0 - 0.2 10e3/uL Absolute Immature Granulocytes 0.1 <=0.4 10e3/uL Absolute NRBCs 0.4 10e3/uL CBC with platelets differential Status: Abnormal Narrative The following orders were created for panel order CBC with platelets differential. Procedure Abnormality Status --------- ------ CBC with platelets and d...[[id number]] Abnormal Final result Please view results for these tests on the individual orders. CDL DRIVER * Attachments The following attachments cannot be sent through Care Everywhere. * Sickle Cell Crisis ([place] Citizen) documented in this encounter Medications at Time [...] 05/01/2024 naloxone (NARCAN) 4 MG/0.1ML nasal spray Bronson 1 spray (4 mg) into one nostril alternating nostrils as needed for opioid reversal (for opiate overdose if not breathing and unconscious. have your family member watch video on how to use/read information sheet). every 2-3 minutes until assistance arrives 2 each 06/06/2024 documented as of this encounter ED Notes * Melanie Menon, RN - 06/24/2024 9:27 AM CST Pt presents with sickle cell crisis reporting pain in her back and b/l lower extremities. Triage Assessment (Adult) Row Name 06/24/24 0981 Triage Assessment Airway WDL WDL Respiratory WDL Respiratory WDL WDL Skin Circulation/Temperature WDL Skin Circulation/Temperature WDL WDL Cardiac WDL Cardiac WDL WDL Peripheral/Neurovascular WDL Peripheral Neurovascular WDL WDL Cognitive/Neuro/Behavioral WDL Cognitive/Neuro/Behavioral WDL WDL CDL DRIVER documented in this encounter Plan of Treatment Not on file documented as of this encounter Goals Goal Patient Goal Type Associated Problems Recent Progress Patient-Stated? Author Pain Management General On track( 025 12:40 PM VAN CDL DRIVER) Yes Juhi Benson, RN Note: Goal Statement: [...] REFLEX TO CULTURE STAT 06/24/2024 10:15 AM VAN CDL DRIVER CBC WITH PLATELETS AND DIFFERENTIAL STAT 06/24/2024 10:11 AM VAN CDL DRIVER CBC WITH PLATELETS & DIFFERENTIAL STAT 06/24/2024 10:11 AM VAN CDL DRIVER RETICULOCYTE COUNT STAT 06/24/2024 10 :11 AM VAN CDL DRIVER INR STAT 06/24/2024 10:11 AM VAN CDL DRIVER PARTIAL THROMBOPLASTIN TIME STAT 06/24/2024 10:11 AM VAN CDL DRIVER MAGNESIUM STAT 06/24/2024 10:11 AM VAN CDL DRIVER HCG QUALITATIVE STAT 06/24/2024 10:11 AM VAN CDL DRIVER COMPREHENSIVE METABOLIC PANEL STAT 06/24/2024 10:11 AM VAN CDL DRIVER documented in this encounter Results * (ABNORMAL) UA with Microscopic reflex to Culture (06/24/2024 10:15 AM VAN CDL DRIVER) Color Urine Light Yellow Colorless, Straw, Light Yellow, Yellow 06/24/2024 10:25 AM VAN CDL DRIVER [facility] Appearance Urine Clear Clear 06/25/19 10:25 AM VAN CDL DRIVER [facility] Glucose Urine Negative Negative mg/dL 06/24/2024 10:25 AM VAN CDL DRIVER [facility] Bilirubin Urine Negative Negative 10:25 AM VAN CDL DRIVER [facility] Ketones Urine Negative Negative mg/dL 06/24/2024 10:25 AM VAN CDL DRIVER [facility] Specific [place] Urine 1.009 1.003 - 1.035 06/24/2024 10:25 AM VAN CDL DRIVER [facility] Blood Urine Negative Negative 06/24/2024 10:25 AM VAN CDL DRIVER [facility] pH Urine 7.5(H) 5.0 - 7.0 06/24/2024 10:25 AM VAN CDL DRIVER [facility] Protein Albumin Urine Negative Negative mg/dL 06/24/2024 10:25 AM VAN CDL DRIVER [facility] Urobilinogen Urine Normal Normal, 2.0 mg/dL 06/24/2024 10:25 AM VAN CDL DRIVER [facility] Nitrite Urine Negative Negative 06/24/2024 10:25 AM VAN CDL DRIVER [facility] Leukocyte Esterase Urine Negative Negative 06/24/2024 10:25 AM VAN CDL DRIVER [facility] RBC Urine <1 <=2 /HPF 06/24/2024 10:25 AM VAN CDL DRIVER [facility] WBC Urine <1 <=5 /HPF 06/24/2024 10:25 AM VAN CDL DRIVER [facility] Squamous Epithelials Urine 11(H) <=1 /HPF 06/24/2024 10:25 AM VAN CDL DRIVER [facility] Hyaline Casts Urine 1 <=2 /LPF 06/24/2024 10:25 AM VAN CDL DRIVER [facility] Urine MID-STREAM URINE SPECIMEN / Unknown Non-blood Collection / Unknown 06/24/2024 10:15 AM VAN CDL DRIVER 06/24/2024 10:20 AM VAN CDL DRIVER Narrative [facility] - 06/24/2024 10:25 AM VAN CDL DRIVER Urine Culture not indicated Richar Mahajan MD LAB - URINE ORDERABLES Liss l Result [facility] [place] [facility] [address] [facility], [address] [place] [address], [facility] * (ABNORMAL) CBC with platelets and differential (06/24/2024 10:11 AM VAN CDL DRIVER) [facility] Signature WBC Count 7.8 4.0 - 11.0 10e3/uL 06/24/2024 10:28 AM VAN CDL DRIVER [facility] RBC Count 2.49(L) 3.80 - 5.20 10e6/uL 06/24/2024 10:28 AM VAN CDL DRIVER [facility] Hemoglobin 7.9(L) 11.7 - 15.7 g/dL 06/24/2024 10:28 AM VAN CDL DRIVER [facility] Hematocrit 24.8(L) 35.0 - 47.0 % 06/24/2024 10:28 AM VAN CDL DRIVER [facility] MCV 100 78 - 100 fL 06/24/2024 10:28 AM VAN CDL DRIVER [facility] MCH 31.7 26.5 - 33.0 pg 06/24/2024 10:28 AM VAN CDL DRIVER [facility] MCHC 31.9 31.5 - 36.5 g/dL 06/24/2024 10:28 AM VAN CDL DRIVER [facility] RDW 19.0(H) 10.0 - 15.0 % 06/24/2024 10:28 AM VAN CDL DRIVER [facility] Platelet Count 482(H) 150 - 450 10e3/uL 06/24/2024 10:28 AM VAN CDL DRIVER [facility] % Neutrophils 61 % 06/24/2024 10:28 AM VAN CDL DRIVER [facility] % Lymphocytes 26 % 06/24/2024 10:28 AM VAN CDL DRIVER [facility] % Monocytes 9 % 06/24/2024 10:28 AM VAN CDL DRIVER [facility] % Eosinophils 1 % 06/24/2024 10:28 AM VAN CDL DRIVER [facility] % Basophils 2 % 06/24/2024 10:28 AM VAN CDL DRIVER [facility] % Immature Granulocytes 1 % 06/24/2024 10:28 AM VAN CDL DRIVER [facility] NRBCs per 100 WBC 5(H) <1 /100 025 10:28 AM VAN CDL DRIVER [facility] Absolute Neutrophils 4.8 1.6 - 8.3 10e3/uL 06/24/2024 10:28 AM VAN CDL DRIVER [facility] Absolute Lymphocytes 2.1 0.8 - 5.3 10e3/uL 06/24/2024 10:28 AM VAN CDL DRIVER [facility] Absolute Monocytes 0.7 0.0 - 1.3 10e3/uL 06/24/2024 10:28 AM VAN CDL DRIVER [facility] Absolute Eosinophils 0.1 0.0 - 0.7 10e3/uL 06/24/2024 10:28 AM VAN CDL DRIVER [facility] Absolute Basophils 0.1 0.0 - 0.2 10e3/uL 06/24/2024 10:28 AM VAN CDL DRIVER [facility] Absolute Immature Granulocytes 0.1 <=0.4 10e3/uL 06/24/2024 10:28 AM VAN CDL DRIVER [facility] Absolute NRBCs 0.4 10e3/uL 06/24/2024 10:28 AM VAN CDL DRIVER [facility] Blood BLOOD SPECIMEN / Unknown Venipuncture / Unknown 06/24/2024 10:11 AM VAN CDL DRIVER 06/24/2024 10:22 AM VAN CDL DRIVER Richar Mahajan MD LAB - BLOOD ORDERABLES Liss l Result [facility] [place] [facility] [address] [facility], [address] * (ABNORMAL) Reticulocyte count (06/24/2024 10:11 AM VAN CDL DRIVER) [facility] % Reticulocyte 11.2(H) 0.5 - 2.0 % 06/24/2024 10:28 AM VAN CDL DRIVER [facility] Absolute Reticulocyte 0.280(H) 0.025 - 0.095 10e6/uL 06/24/2024 10:28 AM VAN CDL DRIVER [facility] Blood BLOOD SPECIMEN / Unknown Venipuncture / Unknown 06/24/2024 10:11 AM VAN CDL DRIVER 06/24/2024 10:22 AM VAN CDL DRIVER Richar Mahajan MD LAB - BLOOD ORDERABLES Liss l Result [facility] [place] [facility] [address] [facility] * HCG qualitative Blood (06/24/2024 10:11 AM VAN CDL DRIVER) Pathologist [facility] hCG Serum Qualitative Negative Negative JARET 06/24/2024 10:33 AM VAN CDL DRIVER [facility] Comment:This test is for scr eening purposes. Results should be interpreted along with the clinical picture. Confirmation testing is available if warranted by ordering [id number], HCG Quantitative . Blood BLOOD SPECIMEN / Unknown Venipuncture / Unknown 06/24/2024 10:11 AM VAN CDL DRIVER 06/24/2024 10:20 AM VAN CDL DRIVER Richar Mahajan MD LAB - BLOOD ORDERABLES Liss l Result [facility] [facility] [address] [facility], [address] * Magnesium (06/24/2024 10:11 AM VAN CDL DRIVER) [facility] Magnesium 2.1 1.7 - 2.3 mg/dL 06/24/2024 10:51 AM VAN CDL DRIVER [facility] Blood BLOOD SPECIMEN / Unknown Venipuncture / Unknown 06/24/2024 10:11 AM VAN CDL DRIVER 06/24/2024 10:21 AM VAN CDL DRIVER Richar Mahajan MD LAB - BLOOD ORDERABLES Liss l Result U LABORATORY [facility] [address] [facility], [address] * (ABNORMAL) Comprehensive metabolic panel (06/24/2024 10:11 AM VAN CDL DRIVER) [facility] Sodium 138 135 - 145 mmol/L 06/24/2024 10:51 AM VAN CDL DRIVER [facility] Potassium 4.3 3.4 - 5.3 mmol/L 06/24/2024 10:51 AM VAN CDL DRIVER [facility] Carbon Dioxide (CO2) 20(L) 22 - 29 mmol/L 06/24/2024 10:51 AM VAN CDL DRIVER [facility] Anion Gap 10 7 - 15 mmol/L 06/24/2024 10:51 AM VAN CDL DRIVER [facility] Urea Nitrogen 9.9 6.0 - 20.0 mg/dL 06/24/2024 10:51 AM VAN CDL DRIVER [facility] Creatinine 0.62 0.51 - 0.95 mg/dL 06/24/2024 10:51 AM VAN CDL DRIVER [facility] GFR Estimate >90 >60 mL/min/1.7 3m2 06/24/2024 10:51 AM VAN CDL DRIVER [facility] Comment:eGFR calculated 2020 CKD-EPI equation. Calcium 8.7(L) 8.8 - 10.4 mg/dL 06/24/2024 10:51 AM VAN CDL DRIVER [facility] Chloride 108(H) 98 - 107 mmol/L 06/24/2024 10:51 AM VAN CDL DRIVER [facility] Glucose 98 70 - 99 mg/dL 06/24/2024 10:51 AM VAN CDL DRIVER [facility] Alkaline Phosphatase 119 40 - 150 U/L 06/24/2024 10:51 AM VAN CDL DRIVER [facility] AST 57(H) 0 - 45 U/L 06/24/2024 10:51 AM VAN CDL DRIVER [facility] ALT 53(H) 0 - 50 U/L 06/24/2024 10:51 AM VAN CDL DRIVER [facility] Protein Total 7.4 6.4 - 8.3 g/dL 06/24/2024 10:51 AM VAN CDL DRIVER [facility] Albumin 4.0 3.5 - 5.2 g/dL 06/24/2024 10:51 AM VAN CDL DRIVER [facility] Bilirubin Total 1.1 <=1.2 mg/dL 06/24/2024 10:51 AM VAN CDL DRIVER [facility] Blood BLOOD SPECIMEN / Unknown Venipuncture / Unknown 06/24/2024 10:11 AM VAN CDL DRIVER 06/24/2024 10:21 AM VAN CDL DRIVER us Richar Mahajan MD LAB - BLOOD ORDERABLES [place] Result [facility] [facility] [address] [facility], [address] [place] [address] * (ABNORMAL) INR (06/24/2024 10:11 AM VAN CDL DRIVER) INR 1.45(H) 0.85 - 1.15 06/24/2024 10:54 AM VAN CDL DRIVER [facility] Blood BLOOD SPECIMEN / Unknown Venipuncture / Unknown 06/24/2024 10:11 AM VAN CDL DRIVER 06/24/2024 10:21 AM VAN CDL DRIVER us Richar Mahajan MD LAB - BLOOD ORDERABLES Liss l Result LABORATORY [facility] [address] [facility] * Partial thromboplastin time (06/24/2024 10:11 AM VAN CDL DRIVER) aPTT 32 22 - 38 Seconds 06/24/2024 10:55 AM VAN CDL DRIVER [facility] Blood BLOOD SPECIMEN / Unknown Venipuncture / Unknown 06/24/2024 10:11 AM VAN CDL DRIVER 06/24/2024 10:21 AM VAN CDL DRIVER us Richar Mahajan MD LAB - BLOOD ORDERABLES Liss l Result Performing Organization Address City/[facility] Co de Phone Number LABORATORY [facility] [address] [facility] documented in this encounter Visit Diagnoses Diagnosis Sickle cell disease with crisis (H) Hb-SS disease with crisis documented in this encounter Administered Medications Inactive Administered Medications - up to 3 most recent administrations Medication Order MAR Action Action Date Dose Rate Site diphenhydrAMINE (BENADRYL) capsule 50 mg 50 mg, Oral, ONCE, On 06/24/24 at 0935, For 1 dose $Given 06/24/2024 10:20 AM VAN CDL DRIVER 50 mg hydromorphone (DILAUDID) injection 2 mg 2 mg, Intravenous, EVERY 1 HOUR PRN, severe pain, Starting on 06/24/24 at 0933, For 3 doses $Given 06/24/2024 12:41 PM VAN CDL DRIVER 2 mg $Given 06/24/2024 11:21 AM VAN CDL DRIVER 2 mg $Given 06/24/2024 10:19 AM VAN CDL DRIVER 2 mg lactated ringers BOLUS 1,000 mL Intravenous, 1,000 mL, ONCE, at 500 mL/hr, Administer over 2 Hours, On 06/24/24 at 0935, For 1 dose $New Bag 06/24/2024 10:20 AM VAN CDL DRIVER 1,000 mLs 500 mL/hr lidocaine (LMX4) cream Topical, EVERY 1 HOUR PRN, pain, with VAD insertion, Starting on 06/24/24 at 0930, Apply at least 30 minutes prior to [...] mild pain with VAD insertion, Starting on 06/24/24 at 0930, MAX dose 1 mL subcutaneous OR intradermal along the side of the vein in divided doses as needed for VAD insertion. Do NOT give if patient has a history of allergy to any local anesthetic or any horacio product. Do NOT use both lidocaine intradermal/subcutaneous injection and the lidocaine cream on the same site. ondansetron (ZOFRAN) injection 8 mg 8 mg, Intravenous, ONCE, Administer over 2-5 Minutes, On 06/24/24 at 0935, For 1 dose $Given 06/24/2024 10:19 AM VAN CDL DRIVER 8 mg sodium chloride (PF) 0.9% PF flush 3 mL 3 mL, Intracatheter, EVERY 8 HOURS, First dose on 06/24/24 at 0935, to lock peripheral IV dormant line $Given 06/24/2024 10:14 AM VAN CDL DRIVER 3 mLs sodium chloride (PF) 0.9% PF flush 3 mL 3 mL, Intracatheter, EVERY 1 MIN PRN, line flush, other, to ensure patency or to lock dormant line, Starting on 06/24/24 at 0930 documented in this encounter Active and Recently Administered Medications Times are shown in VAN CDL DRIVER. Scheduled Medication Order 06/22/2024 06/23/2024 06/24/2024 diphenhydrAMINE (BENADRYL) capsule 50 mg (COMPLETED) 50 mg, Oral, ONCE, On 06/24/24 at 0935, For 1 dose 1020 ($Given - Provi nas: Juan Uriostegui RN) lactated ringers BOLUS 1,000 mL (COMPLETED) Intravenous, 1,000 mL, ONCE, at 500 mL/hr, Administer over 2 Hours, On 06/24/24 at 0935, For 1 dose 1020 ($New Bag - Pro vider: Juan Uriostegui RN)1245 (Stopped - Provider: Juan Uriostegui RN) ondansetron (ZOFRAN) injection 8 mg (COMPLETED) 8 mg, Intravenous, ONCE, Administer over 2-5 Minutes, On 06/24/24 at 0935, For 1 dose 1019 ($Given - Provi nas: Juan Uriostegui RN) sodium chloride (PF) 0.9% PF flush 3 mL 3 mL, Intracatheter, EVERY 8 HOURS, First dose on 06/24/24 at 0935, to lock peripheral IV dormant line 1014 ($Given - Provi nas: Juan Uriostegui RN) PRN Medication Order 06/22/2024 06/23/2024 06/24/2024 hydromorphone (DILAUDID) injection 2 mg (COMPLETED) 2 mg, Intravenous, EVERY 1 HOUR PRN, severe pain, Starting on 06/24/24 at 0933, For 3 doses 1019 ($Given - Provi nas: Juan Uriostegui RN)1121 ($Given - Provider: Juan Uriostegui RN)1241 ($Given - Provider: Juan Uriostegui RN) lidocaine (LMX4) cream Topical, EVERY 1 HOUR PRN, pain, with VAD insertion, Starting on 06/24/24 at 0930, Apply at least 30 minutes prior to [...] mild pain with VAD insertion, Starting on 06/24/24 at 0930, MAX dose 1 mL subcutaneous OR intradermal along the side of the vein in divided doses as needed for VAD insertion. Do NOT give if patient has a history of allergy to any local anesthetic or any horacio product. Do NOT use both lidocaine intradermal/subcutaneous injection and the lidocaine cream on the same site. sodium chloride (PF) 0.9% PF flush 3 mL 3 mL, Intracatheter, EVERY 1 MIN PRN, line flush, other, to ensure patency or to lock dormant line, Starting on 06/24/24 at 0930 documented in this encounter Care Teams Esl Professor Relationship Specialty Start Date End Date Veronica Joseph MD [address] [place] [address] PCP - General Family Medicine 06/18/24 Mor Ramsey Medical Student 04/03/24 Case Samuel MD [address] [place] [address] [address], [address] [place], [place] [id number] Assigned Pediatric Specialist Provider 05/18/24 Juhi Benson, RN Specialty Diet Aid Hematology & Oncology 05/29/24 documented as of this encounter
--- NOTE | 2024-06-24 20:32 | ED.GENADULT ---
HPI - General Adult General Chief complaint: Unspecified Complaint, Adult Stated complaint: Sickle Cell Crisis Time Seen by Provider: 06/24/24 20:16 History of Present Illness HPI narrative: This 29-year-old female comes in with sickle cell disease and reports significant increase of pain recently after cold weather that occurred over the past couple days. She has been here few times before and does bring in statement from her jewelry jobber verifying sickle cell disease and a plan for treatment if needing IV medications. The patient does have a port that can be accessed. She reports pain in her back and in her legs. She arrives here with normal vital signs. Related Data Home Medications ?Medication ?Instructions ?Recorded ?Confirmed hydromorphone 2 mg tablet 4 mg PO Q4H PRN pain 04/02/24 04/08/24 folic acid 2 tab PO DAILY 04/04/24 04/08/24 hydroxyurea (sickle cell) 1,000 mg PO BID 04/04/24 04/08/24 Previous Rx's ?Medication ?Instructions ?Recorded azithromycin 250 mg tablet 250 mg PO DAILY 4 days #4 tabs 04/08/24 cefdinir 300 mg capsule 300 mg PO BID #20 caps 04/08/24 cefdinir 300 mg capsule 300 mg PO BID 107 days #214 caps 04/08/24 Allergies Allergy/AdvReac Type Severity Reaction Status Date / Time cashew nut Allergy Verified 06/24/24 20:14 ketorolac (From Toradol) Allergy Verified 06/24/24 20:14 tramadol Allergy Verified 06/24/24 20:14 banana AdvReac Verified 06/24/24 20:14 latex AdvReac Verified 06/24/24 20:14 Review of Systems Status of ROS: Reports: 10 or more systems reviewed and unremarkable except as noted in History and below Narrative: Constitutional: No fevers, no weight gain or loss. Eyes: No discharge. No vision changes. HENT: No congestion, no sore throat, no ear pain. Cardiovascular: No chest pain, no palpitations. Respiratory: No shortness of breath, no wheezes, no cough. Gastrointestinal: No abdominal pain, no vomiting, no diarrhea. Genitourinary: No dysuria, no hematuria. Musculoskeletal: Normal range of motion. Skin: No rashes, no pruritis. Neurological: No dizziness, weakness, sensory change, speech change. Endo/Heme/Allergies: No bruising or bleeding. No polydipsia. Pysch: no suicidality, no anxiety, no insomnia. All other systems reviewed and are negative. [facility] Medical History (Updated 06/24/24 @ 20:34 by Owen Perla MD) Sickle cell pain crisis ?D57.00 - Hb-SS disease with crisis, unspecified (ICD-10) Sickle cell anemia ?D57.1 - Sickle-cell disease without crisis (ICD-10) Social History Smoking Status: Never smoker Do you use any of these nicotine containing products: None How often do you have a drink containing alcohol: never AUDIT-C Alcohol total score: 0 Non-prescribed substance use: opiods/painkillers Exam Narrative: Exam Narrative: Constitutional: Well-developed, well-nourished, no acute distress. HEENT: Normocephalic, atraumatic. Neck: Normal range of motion. Nontender. Supple. Heart: Regular. No murmurs. Normal rate. Intact distal pulses. Lungs: Clear to auscultation. No chest discomfort. No wheezes, rhonchi, or rales. Abdomen: Normal bowel sounds. Nontender. No rebound tenderness. Genitalia: Deferred. Back: No midline tenderness. Normal range of motion. Extremities: Normal range of motion. No injury. Skin: Intact. No rash. Warm. No erythema or pallor. Neurologic: No altered sensation. No weakness. Alert and oriented. Psychiatric: No suicidality. No anxiety or depression. No insomnia. Nursing notes and vitals signs are reviewed. Const: Vital Signs, click to edit/add: Vital Signs - 24 hr 06/24/24 20:10 Temperature 99.2 F Pulse Rate [Pulse Oximeter] 112 H Respiratory Rate 22 Blood Pressure [Ri ght Upper Arm] 118/76 Pulse Oximetry 97 Oxygen Delivery Me thod Room Air Course Vital Signs Vital signs: Initial Vital Signs Temperature 99.2 F 06/24/24 20:10 Temperature Source Oral 06/24/24 20:10 Pulse Rate 112 H 06/24/24 20:10 Pulse Rhythm Regular 06/24/24 20:10 Pulse Strength 3+ Normal 06/24/24 20:10 Respiratory Rate 22 06/24/24 20:10 Blood Pressure 118/76 06/24/24 20:10 Blood Pressure Mean 90 06/24/24 20:10 Blood Pressure Position Sitting 06/24/24 20:10 Pulse Oximetry 97 06/24/24 20:10 Oxygen Delivery Method Room Air 06/24/24 20:10 Vital Signs Temperature 99.2 F 06/24/24 20:10 Pulse Rate 112 H 06/24/24 20:10 Respiratory Rate 22 06/24/24 20:10 Blood Pressure 118/76 06/24/24 20:10 Pulse Oximetry 97 06/24/24 20:10 Oxygen Delivery Method Room Air 06/24/24 20:10 Temperature 99.2 F 06/24/24 20:10 Pulse Rate 112 H 06/24/24 20:10 Respiratory Rate 22 06/24/24 20:10 Blood Pressure 118/76 06/24/24 20:10 Pulse Oximetry 97 06/24/24 20:10 Oxygen Delivery Method Room Air 06/24/24 20:10 Medical Decision Making MDM Narrative Medical decision making narrative: This patient has sickle cell disease and comes in with worsening pain that is not controlled with her home medications. She is involved with a jewelry jobber to as outlined a care plan in situations like this. It is rather significant amount of medication but she does well with this and does not have any adverse effects. An IV was established through her port and she did received 3 separate doses of Dilaudid 2 mg with 1 hour interval between. She also received Benadryl 25 mg and a L of lactated Ringer's. She is okay to be discharged after these treatments are complete. Discharge Plan Discharge Clinical Impression: Sickle cell pain crisis Patient Disposition: Home w/ Parent or Adult Condition: Stable Additional Instructions: Continue current plans. Follow up with primary physician as needed. Prescriptions: No Action cefdinir 300 mg capsule 300 mg PO BID 107 Days Qty: 214 0RF azithromycin 250 mg tablet 250 mg PO DAILY 4 Days Qty: 4 0RF Rx Instructions: first dose was given in ER 04/08/24. start on day 2 of therapy cefdinir 300 mg capsule 300 mg PO BID Qty: 20 0RF hydromorphone 2 mg tablet 4 mg PO Q4H PRN (Reason: pain) hydroxyurea (sickle cell) 1,000 mg PO BID folic acid 2 tab PO DAILY Rx Instructions: 2mg Follow Up/Referrals: Provider,Not a Local [Primary Care Provider] - Stand Alone Forms: MyHealth Info Instructions
--- OUTSIDE RECORDS SUMMARY | 2024-06-24 20:51 | XMS_ITS | Clinical Summary ---
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 10 Tablet 5 2:58 PM [facility] 04/27/19 25 Active folic acid 1 mg tablet Take 1 tablet (1 mg) by mouth daily. 30 Tablet 5 1:41 PM [facility] 05/01/19 25 Active hydroxyurea (HYDREA) 500 mg capsule Take 2 capsules (1,000 mg) by mouth 2 times daily 120 Capsule 05/01/19 25 Active multivitamin with folic acid 0.4 mg (Thera) Take 1 tablet by mouth daily. 30 Tablet 11 5 10:39 AM [facility] 05/01/19 25 Active amoxicillin-clavul anate (AUGMENTIN) 875-125 mg tablet Take 1 tablet by mouth 2 times daily for 7 days. 14 Tablet 5 10:39 AM [facility] 05/08/19 25 Active doxycycline hyclate 100 mg capsule Take 1 capsule (100 mg) by mouth 2 times daily for 7 days. 14 Capsule 5 10:39 AM [facility] 05/08/19 25 Active HYDROmorphone 4 mg tablet Take 1 Tablet (4 mg) by mouth every 6 hours if needed for severe pain. 30 Tablet 5 1:04 PM [facility] 05/09/19 25 Active FLUoxetine (PROZAC) 10 mg capsule Take 1 capsule (10 mg) by mouth daily. 40 Capsule 1 5 3:26 PM [facility] 05/29/19 25 Active naloxone (NARCAN) 4 mg/actuation nasal spray Gallaway 1 spray (4 mg) into one nostril [...] severe pain. 40 Tablet 5 11:11 AM [facility] 06/15/19 25 Active HYDROmorphone 2 mg tablet Take 2 tablets (4 mg) by mouth every 6 hours as needed for severe pain. 30 Tablet 5 4:42 PM [facility] 05/24/19 25 025 Discontin ued(Reord er (E-cancel not sent)) HYDROmorphone 2 mg tablet Take 2 tablets (4 mg) by mouth every 6 hours as needed for severe pain. 40 Tablet 5 3:26 PM [facility] 05/29/19 25 025 Discontin ued(Reord er (E-cancel not sent)) HYDROmorphone 2 mg tablet Take 2 tablets (4 mg) by mouth every 6 hours as needed for severe pain. 40 Tablet 5 4:27 PM [facility] 06/07/19 25 025 Discontin ued(Reord er (E-cancel [...] Department Care Team Description 06/11/2024 1:08 AM [facility] - 06/11/2024 3:57 AM [facility] Emergency [facility] [address] [place] [address] Juan Kunz, Sickle cell pain crisis (HC) (Primary Dx) Discharge Disposition: Home Self Care 06/11/2024 Travel 06/06/2024 Refill [facility] [address] [place] [address] Veronica Joseph MD Refill Request 06/03/2024 11:37 AM [facility] - 06/03/2024 2:[address] [address] Ben Swan MD Viral syndrome (Primary Dx) Discharge Disposition: Home Self Care 06/03/2024 Travel 05/29/2024 1:53 PM [facility] - 05/29/2024 2:[address] [address] Ana Pacheco MD Sickle cell pain crisis (HC) (Primary Dx) Discharge Disposition: Home Self Care 05/29/2024 Travel 05/21/2024 10:35 AM [facility] - 05/21/2024 2:[address] [address] Juliana Gil DO Sickle cell disease with crisis (HC) (Primary Dx); Diffuse pain Discharge Disposition: Home Self Care 05/21/2024 Travel 05/18/2024 2:12 AM [facility] - 05/18/2024 4:[address] [address] Onesimo Gaviria MD Sickle cell pain crisis (HC) (Primary Dx) Discharge Disposition: Home Self Care 05/18/2024 Travel 05/17/2024 Telephone [facility] [address] [place] [address] Veronica Joseph MD Questions (HEALTH STATUS ) 05/10/2024 Telephone [facility] [address] [place] [address] Veronica Joseph MD Follow Up 05/07/2024 5:53 PM [facility] - 05/07/2024 8:[address] [address] Caryn Downs MD Sickle cell anemia with pain (HC) (Primary Dx); RUQ abdominal pain Discharge Disposition: Home Self Care 05/07/2024 Travel 05/03/2024 10:59 PM [facility] - 05/04/2024 2:[address] [address] Anika Mccracken MD Discharge Disposition: Home Self Care 05/03/2024 Travel 05/02/2024 10:15 AM [facility] - 05/02/2024 12:[address] [address] Juan Kunz DO Sickle cell pain crisis (HC) (Primary Dx) Discharge Disposition: Home Self Care 05/02/2024 Travel 04/27/2024 Telephone [facility] [address] [place] [address] Veronica Joseph MD 04/27/2024 Refill [facility] [address] [place] [address] Veronica Joseph MD Refill Request (HYDROmorphone 4 mg tablet ) 04/24/2024 1:31 AM [facility] - 04/24/2024 4:[address] [address] Onesimo Gaviria MD Sickle cell pain crisis (HC) (Primary Dx); Community acquired pneumonia, unspecified laterality Discharge Disposition: Home Self Care 04/24/2024 Refill [facility] [address] [place] [address] Veronica Joseph MD Refill Request (HYDROmorphone 4 mg tablet ) 04/24/2024 Travel 04/22/2024 1:40 PM [facility] - 04/22/2024 5:[address] [place] [address] Shauna Flaherty PA Sickle cell pain crisis (HC) (Primary Dx) Discharge Disposition: Home Self Care 04/22/2024 Travel 04/20/2024 3:40 PM [facility] - 04/20/2024 6:[address] [address] Maria Teresa Haider PA Left hip pain (Primary Dx) Discharge Disposition: Home Self Care 04/20/2024 Travel 04/20/2024 Telephone [facility] [address] [place] [address] Veronica Joseph MD 04/20/2024 Refill [facility] [address] [place] [address] Veronica Joseph MD Refill Request (HYDROmorphone 4 mg tablet) 04/19/2024 7:18 PM [facility] - 04/19/2024 9:[address] [address] Maria Teresa Haider PA Closed right hip fracture, initial encounter (HC) (Primary Dx); Avascular necrosis of bone of right hip (HC); Sickle cell pain crisis (HC) Discharge Disposition: Home Self Care 04/19/2024 Travel 04/18/2024 3:51 AM [facility] - 04/18/2024 5:[address] [address] Elizabeth Duffy MD Left hip pain (Primary Dx); Sickle cell disease with crisis (HC) Discharge Disposition: Home Self Care 04/17/2024 10:36 AM [facility] - 04/17/2024 12:[address] [address] Juhi Hull PA Left hip pain (Primary Dx); Sickle cell pain crisis (HC) Discharge Disposition: Home Self Care 04/17/2024 Travel 04/15/2024 5:33 PM [facility] - 04/15/2024 10:24 PM [facility] [address] [address] Kathy Contreras MD Sickle cell pain crisis (HC) (Primary Dx) Discharge Disposition: Home Self Care 04/15/2024 Travel 04/11/2024 9:55 AM [facility] Office Visit [facility] [address] [place] [address] Veronica Joseph MD Follow Up (Sickle Cell) 04/11/2024 Travel 04/08/2024 6:17 PM [facility] - 04/08/2024 8:[address] [address] Ana Pacheco MD Sickle cell pain crisis (HC) (Primary Dx) Discharge Disposition: Home Self Care 04/08/2024 Travel 04/06/2024 8:27 PM [facility] - 04/06/2024 10:[address] [address] Tanmay Olivares PA Biliary colic (Primary Dx) Discharge Disposition: Home Self Care 04/06/2024 Travel 04/04/2024 6:29 PM [facility] - 04/04/2024 10:[address] [address] Juhi Patel PA Sickle cell anemia with pain (HC) (Primary Dx); Opioid use Discharge Disposition: Home Self Care 04/04/2024 Travel 04/02/2024 3:52 PM [facility] - 04/02/2024 6:[address] [address] Sabrina Ulrich PA Roy, David William, MD Sickle cell pain crisis (HC) (Primary Dx); Multiple pulmonary nodules Discharge Disposition: Home Self Care 04/02/2024 Travel 03/31/2024 Patient Outreach [facility] [address] [place] [address] Lavinia Owens, SOFIA Primary RN Care Management (LACE: 48); Hospital F/U (Diagnosis: Sickle cell pain crisis (HC) DOD: 03/30/24) 03/28/2024 7:19 PM [facility] - 03/30/2024 9:28 AM [facility] Emergency [address] [address] Onesimo Gaviria MD Qadri, Ghaziuddin Ahmed, MBBS Fuchs, Kurt Richard, MD Sickle cell pain crisis (HC) (Primary Dx) Discharge Disposition: Home Self Care 03/28/2024 12:19 AM [facility] - 03/28/2024 4:24 AM [facility] Emergency [address] [address] Mor Ramsey MD Sickle cell disease with crisis (HC) (Primary Dx); Chest pain, unspecified type Discharge Disposition: Home Self Care 03/28/2024 Telephone [facility] [address] [place] [address] Veronica Joseph MD Medication Management (HYDROmorphone 2 mg tablet) 03/28/2024 Travel from Last 3 Months Immunizations Name Administration Dates Next Due COVID-19 VACCINE SPIKEVAX (M ODERNA 50MCG/0.5ML) 12YO+ PFS 03/26/2023 COVID-19 vaccine (Moderna 100mcg/0.5mL) PFVIVIAN 05/21/2021,06/07/2020,05/10/2020 COVID-19 vaccine (Pfizer-Bio NTech 30mcg/0.3mL) PFMDV 02/27/2021,02/06/2021 DTaP 11/20/1999, 9,11/13/1995,10/05,03/08/1995,1994,1994 ,1994,1994 Hepatitis A [...] on file Legal Sex Female 8:18 PM [facility] Gender Identity Not on file Sexual Orientation Not on file Obstetrics History Last Filed Vital Signs Vital Sign Reading Time Taken Comments Blood Pressure 121/73 06/11/2024 3:30 AM [facility] Pulse 93 06/11/2024 3:30 AM [facility] Temperature 36.6 C (97.9 F) 06/11/2024 1:12 AM [facility] Respiratory Rate 18 06/11/2024 3:00 AM [facility] Oxygen Saturation 95% 06/11/2024 3:30 AM [facility] Inhaled Oxygen Concentration - - Weight 51.7 kg (114 lb) 06/11/2024 1:10 AM [facility] Height 154.9 cm (5' 1) 06/11/2024 1:10 AM [facility] Body Mass Index 21.54 06/11/2024 1:10 AM [facility] Plan of Treatment Health Maintenance Due Date Last Done Comments HIV for age 15-65 2009 Hepatitis C screening for ag e 18-79 2012 Pneumococcal series for age 6-49 (1 of 2 - PCV) 2013 Tetanus booster 01/18/2017 01/18/2007 COVID-19 vaccine series (2023- season) 2023 03/26/2023, 05/21/2021, 02/27/2021, Additional history [...] WITH AUTO DIFFERENTIAL STAT 06/03/2024 12:51 PM [facility] INFLUENZA A/B PCR Today 06/03/2024 12: 51 PM [facility] COVID-19 MOLECULAR Today 06/03/2024 12 :51 PM [facility] BASIC METABOLIC PANEL STAT 06/03/2024 12:51 PM [facility] CBC WITH AUTO DIFFERENTIAL STAT 06/03/2024 12:51 PM [facility] XR CHEST 2 VIEWS PA AND LATERAL STAT 06/03/2024 12:34 PM [facility] EKG 12 LEAD STAT 06/03/2024 11:48 AM [facility] HEMOGLOBIN STAT 05/29/2024 2:23 PM [facility] EKG 12 LEAD STAT 05/29/2024 2:03 PM [facility] EKG 12 LEAD STAT 05/21/2024 10:19 AM [facility] RED CELL MORPHOLOGY STAT 05/07/2024 6 :20 PM [facility] PLATELET ESTIMATE STAT 05/07/2024 6:2 0 PM [facility] RETICULOCYTES STAT 05/07/2024 6:20 PM [facility] LIPASE STAT 05/07/2024 6:20 PM [facility] HEPATIC FUNCTION PANEL STAT 6:20 PM [facility] BASIC METABOLIC PANEL STAT 05/07/2024 6:20 PM [facility] CBC W PLT NO DIFF STAT 05/07/2024 6:[address] CHEST PE STUDY STAT 05/04/2024 1:4 6 AM [facility] RETICULOCYTES STAT 05/04/2024 12:24 AM [facility] URINE Today 05/04/2024 12:07 AM [facility] UA W/ SEDIMENT EXAM REFLEXED PER CRITERIA Today 05/04/2024 12:07 AM [facility] CWS PATH REVIEW HEMATOLOGY STAT 05/03/2024 11:52 PM [facility] RED CELL MORPHOLOGY STAT 05/03/2024 1 1:52 PM [facility] PLATELET ESTIMATE STAT 05/03/2024 11: 52 PM [facility] MANUAL DIFFERENTIAL STAT 05/03/2024 1 1:52 PM [facility] CBC WITH AUTO DIFFERENTIAL STAT 05/03/2024 11:52 PM [facility] D-DIMER,QUANTITATIVE STAT 05/03/2024 11:52 PM [facility] HEPATIC FUNCTION PANEL STAT 11:52 PM [facility] BASIC METABOLIC PANEL STAT 05/03/2024 11:52 PM [facility] CBC WITH AUTO DIFFERENTIAL STAT 05/03/2024 11:52 PM [facility] EKG 12 LEAD STAT 05/03/2024 11:48 PM [facility] INFLUENZA A/B PCR Today 05/02/2024 10: 20 AM [facility] COVID-19 MOLECULAR Today 05/02/2024 10 :20 AM [facility] CBC WITH AUTO DIFFERENTIAL SULEMA 04/24/2024 2:16 AM [facility] RETICULOCYTES Early AM 04/24/2024 2:16 AM [facility] CBC WITH AUTO DIFFERENTIAL SULEMA 04/24/2024 2:16 AM [facility] BASIC METABOLIC PANEL SULEMA 04/24/2024 2:16 AM [facility] XR CHEST 2 VIEWS PA AND LATERAL STAT 04/24/2024 1:58 AM [facility] EKG 12 LEAD SULEMA 04/24/2024 1:38 AM [facility] RETICULOCYTES STAT 04/22/2024 2:21 PM [facility] BASIC METABOLIC PANEL STAT 04/22/2024 2:21 PM [facility] CBC W PLT NO DIFF STAT 04/22/2024 2:2 1 PM [facility] XR CHEST 2 VIEWS PA AND LATERAL STAT 04/22/2024 1:18 PM [facility] EKG 12 LEAD STAT 04/22/2024 1:06 PM [facility] TYPE & SCREEN STAT 04/20/2024 4:43 PM [facility] RED CELL MORPHOLOGY STAT 04/20/2024 4 :43 PM [facility] PLATELET ESTIMATE STAT 04/20/2024 4:4 3 PM [facility] MANUAL DIFFERENTIAL STAT 04/20/2024 4 :43 PM [facility] CBC WITH AUTO DIFFERENTIAL STAT 04/20/2024 4:43 PM [facility] RETICULOCYTES STAT 04/20/2024 4:43 PM [facility] CBC WITH AUTO DIFFERENTIAL STAT 04/20/2024 4:43 PM [facility] BASIC METABOLIC PANEL STAT 04/20/2024 4:25 PM [facility] XR ANKLE 3 VIEWS LEFT STAT 04/18/2024 5:09 AM [facility] C-REACTIVE PROTEIN STAT 04/18/2024 4: 59 AM [facility] BASIC METABOLIC PANEL STAT 04/18/2024 4:59 AM [facility] SEDIMENTATION RATE STAT 04/18/2024 4: 58 AM [facility] CBC WITH AUTO DIFFERENTIAL STAT 04/18/2024 4:58 AM [facility] RETICULOCYTES STAT 04/18/2024 4:58 AM [facility] CBC WITH AUTO DIFFERENTIAL STAT 04/18/2024 4:58 AM [facility] RED CELL MORPHOLOGY STAT 04/17/2024 1 0:50 AM [facility] PLATELET ESTIMATE STAT 04/17/2024 10: 50 AM [facility] C-REACTIVE PROTEIN SULEMA 04/17/2024 10 :50 AM [facility] SEDIMENTATION RATE SULEMA 04/17/2024 10 :50 AM [facility] CBC W PLT NO DIFF STAT 04/17/2024 10: 50 AM [facility] BASIC METABOLIC PANEL STAT 04/17/2024 10:50 AM [facility] RETICULOCYTES STAT 04/17/2024 10:50 AM [facility] XR HIP 2 OR 3 VIEWS W PELVIS LEFT STAT 04/15/2024 6:34 PM [facility] TYPE & SCREEN STAT 04/15/2024 6:10 PM [facility] RED CELL MORPHOLOGY STAT 04/15/2024 6 :10 PM [facility] PLATELET ESTIMATE STAT 04/15/2024 6:1 0 PM [facility] C-REACTIVE PROTEIN STAT 04/15/2024 6: 10 PM [facility] SEDIMENTATION RATE STAT 04/15/2024 6: 10 PM [facility] CBC WITH AUTO DIFFERENTIAL STAT 04/15/2024 6:10 PM [facility] BASIC METABOLIC PANEL STAT 04/15/2024 6:10 PM [facility] RETICULOCYTES STAT 04/15/2024 6:10 PM [facility] CBC WITH AUTO DIFFERENTIAL STAT 04/15/2024 6:10 PM [facility] RED CELL MORPHOLOGY Timed 04/08/2024 8 :27 PM [facility] PLATELET ESTIMATE Timed 04/08/2024 8:2 7 PM [facility] RETICULOCYTES Early AM 04/08/2024 8:27 PM [facility] CBC W PLT NO DIFF Early AM 04/08/2024 8:2 7 PM [facility] XR CHEST 2 VIEWS PA AND LATERAL STAT 04/08/2024 7:28 PM [facility] BASIC METABOLIC PANEL STAT 04/08/2024 7:05 PM [facility] EKG 12 LEAD STAT 04/08/2024 5:50 PM [facility] US ABDOMEN LIMITED GALLBLADDER STAT 04/06/2024 9:38 PM [facility] CBC WITH AUTO DIFFERENTIAL STAT 04/06/2024 8:55 PM [facility] RETICULOCYTES STAT 04/06/2024 8:55 PM [facility] LIPASE STAT 04/06/2024 8:55 PM [facility] COMP METABOLIC PANEL STAT 04/06/2024 8:55 PM [facility] CBC WITH AUTO DIFFERENTIAL STAT 04/06/2024 8:55 PM [facility] XR CHEST 2 VIEWS PA AND LATERAL STAT 04/04/2024 7:28 PM [facility] RED CELL MORPHOLOGY STAT 04/04/2024 6 :54 PM [facility] PLATELET ESTIMATE STAT 04/04/2024 6:5 4 PM [facility] MANUAL DIFFERENTIAL STAT 04/04/2024 6 :54 PM [facility] TROPONIN T (HS) ACUTE W/2HR REFLEX SULEMA 04/04/2024 6:54 PM [facility] CBC WITH AUTO DIFFERENTIAL STAT 04/04/2024 6:54 PM [facility] RETICULOCYTES STAT 04/04/2024 6:54 PM [facility] BASIC METABOLIC PANEL STAT 04/04/2024 6:54 PM [facility] CBC WITH AUTO DIFFERENTIAL STAT 04/04/2024 6:54 PM [facility] EKG 12 LEAD STAT 04/04/2024 6:45 PM [facility] XR CHEST 2 VIEWS PA AND LATERAL STAT 04/02/2024 4:42 PM [facility] EKG 12 LEAD STAT 04/02/2024 4:24 PM [facility] RED CELL MORPHOLOGY STAT 04/02/2024 4 :21 PM [facility] PLATELET ESTIMATE STAT 04/02/2024 4:2 1 PM [facility] CBC WITH AUTO DIFFERENTIAL STAT 04/02/2024 4:21 PM [facility] RETICULOCYTES STAT 04/02/2024 4:21 PM [facility] BASIC METABOLIC PANEL STAT 04/02/2024 4:21 PM [facility] CBC WITH AUTO DIFFERENTIAL STAT 04/02/2024 4:21 PM [facility] SODIUM Early AM 03/30/2024 8:15 AM [facility] CREATININE Early AM 03/30/2024 8:15 AM [facility] POTASSIUM Early AM 03/30/2024 8:15 AM [facility] PLATELET COUNT Early AM 03/30/2024 8:15 AM [facility] WHITE BLOOD COUNT Early AM 03/30/2024 8:1 5 AM [facility] HEMOGLOBIN Early AM 03/30/2024 8:15 AM [facility] WHITE BLOOD COUNT Early AM 03/29/2024 5:4 4 AM [facility] BILIRUBIN,TOTAL Early AM 03/29/2024 5:44 AM [facility] PLATELET COUNT Early AM 03/29/2024 5:44 AM [facility] HEMOGLOBIN Early AM 03/29/2024 5:44 AM [facility] RETICULOCYTES Early AM 03/29/2024 5:44 AM [facility] BILIRUBIN,TOTAL/DIRECT SLUEMA 7:53 PM [facility] RED CELL MORPHOLOGY SULEMA 03/28/2024 7 :53 PM [facility] PLATELET ESTIMATE SULEMA 03/28/2024 7:5 3 PM [facility] MANUAL DIFFERENTIAL SULEMA 03/28/2024 7 :53 PM [facility] CBC WITH AUTO DIFFERENTIAL SULEMA 03/28/2024 7:53 PM [facility] CBC WITH AUTO DIFFERENTIAL SULEMA 03/28/2024 7:53 PM [facility] BASIC METABOLIC PANEL SULEMA 03/28/2024 7:53 PM [facility] BLOOD CULTURE STAT 03/28/2024 2:17 AM [facility] PROCALCITONIN STAT 03/28/2024 2:06 AM [facility] BLOOD CULTURE STAT 03/28/2024 2:06 AM [facility] XR CHEST 2 VIEWS PA AND LATERAL STAT 03/28/2024 1:17 AM [facility] C-REACTIVE PROTEIN SULEMA 03/28/2024 12 :53 AM [facility] BASIC METABOLIC PANEL STAT 03/28/2024 12:53 AM [facility] RETICULOCYTES STAT 03/28/2024 12:53 AM [facility] CBC W PLT NO DIFF STAT 03/28/2024 12: 53 AM [facility] EKG 12 LEAD STAT 03/28/2024 12:22 AM [facility] from Last 3 Months Results * COVID-19 MOLECULAR (06/03/2024 12:51 PM [facility]) Only the most recent of2 resultswithin the time period is included. COVID 19 [place] MOLECULAR Not detected Not detected 06/03/2024 1:18 PM [facility] 06/03/2024 1:18 PM [facility] Comment:Specimen submitted t o [facility] for testing. Other SPECIMEN FROM NASOPHARYNGEAL STRUCTURE / Unknown Non-Blood / Unknown 06/03/2024 12:51 PM [facility] 06/03/2024 12:54 PM [facility] Ben Swan MD MICROBIOLOGY Final Res ult Performing Organization Address City/[facility] Co de Phone Number [facility] [address] [place] [id number], * INFLUENZA A/B PCR (06/03/2024 12:51 PM [facility]) Only the most recent of2 resultswithin the time period is included. INFLUENZA A PCR NOT Detected 06/03/2024 1:18 PM [facility] INFLUENZA B PCR NOT Detected 06/03/2024 1:18 PM [facility] Other SPECIMEN FROM NASOPHARYNGEAL STRUCTURE / Unknown Non-Blood / Unknown 06/03/2024 12:51 PM [facility] 06/03/2024 12:54 PM [facility] Ben Swan MD MICROBIOLOGY Final Res ult Performing Organization Address [facility]/ZIP Co de Phone Number [facility] [address] [place] [id number], [place] [phone] * (ABNORMAL) CBC WITH AUTO DIFFERENTIAL (06/03/2024 12:51 PM [facility]) Only the most recent of10 resultswithin the time period is included. WHITE BLOOD COUNT 11.0 4.5 - 11.0 thou/cu mm 06/03/2024 1:05 PM [facility] RED BLOOD COUNT 2.94(L) 4.00 - 5.20 mil/cu mm 06/03/2024 1:05 PM [facility] HEMOGLOBIN 9.3(L) 12.0 - 16.0 g/dL 06/03/2024 1:05 PM [facility] HEMATOCRIT 26.9(L) 33.0 - 51.0 % 06/03/2024 1:05 PM [facility] MCV 92 80 - 100 fL 06/03/2024 1:05 PM [facility] MCH 31.6 26.0 - 34.0 pg 06/03/2024 1:05 PM [facility] MCHC 34.6 32.0 - 36.0 g/dL 06/03/2024 1:05 PM [facility] RDW 18.9(H) 11.5 - 15.5 % 06/03/2024 1:05 PM [facility] PLATELET COUNT 456(H) 140 - 440 thou/cu mm 06/03/2024 1:05 PM [facility] MPV 9.8 6.5 - 11.0 fL 06/03/2024 1:05 PM [facility] NRBC 0.6 % 06/03/2024 1:05 PM [facility] ABS NRBC 0.1 thou /cu mm 06/03/2024 1:05 PM [facility] % NEUT 69.9 % 06/03/2024 1:05 PM [facility] % LYMPH 15.1 % 06/03/2024 1:05 PM [facility] % MONO 13.4 % 06/03/2024 1:05 PM [facility] % EOS 0.2 % 06/03/2024 1:05 PM [facility] % BASO 0.9 % 06/03/2024 1:05 PM [facility] % IMMATURE GRAN (METAS,MYELOS,MN OS) 0.5 % 06/03/2024 1:05 PM [facility] ABSOLUTE NEUTROPHILS 7.7(H) 1.7 - 7.0 thou/cu mm 06/03/2024 1:05 PM [facility] ABSOLUTE LYMPHOCYTES 1.7 0.9 - 2.9 thou/cu mm 06/03/2024 1:05 PM [facility] ABSOLUTE MONOCYTES 1.5(H) <0.9 thou/cu mm 06/03/2024 1:05 PM [facility] ABSOLUTE EOSINOPHILS 0.0 <0.5 thou/cu mm 06/03/2024 1:05 PM [facility] ABSOLUTE BASOPHILS 0.1 <0.3 thou/cu mm 06/03/2024 1:05 PM [facility] ABSOLUTE IMMATURE GRANULOCYTES(MET ,MYELOS,PROS) 0.1 <0.3 thou/cu mm 06/03/2024 1:05 PM [facility] Blood BLOOD SPECIMEN / Unknown IV Start / Unknown 06/03/2024 12:51 PM [facility] 06/03/2024 12:54 PM [facility] us Ben Swan MD HEMATOLOGY Final Res ult [facility] [address] [place] [address], * (ABNORMAL) BASIC METABOLIC PANEL (06/03/2024 12:51 PM [facility]) Only the most recent of14 resultswithin the time period is included. SODIUM 135(L) 136 - 145 mmol/L 06/03/2024 1:13 PM [facility] POTASSIUM 4.5 3.5 - 5.1 mmol/L 06/03/2024 1:13 PM OUTFITTER CABIN [facility] CHLORIDE 101 98 - 107 mmol/L 06/03/2024 1:13 PM OUTFITTER CABIN [facility] CO2,TOTAL 21(L) 22 - 29 mmol/L 06/03/2024 1:13 PM [facility]IN [facility] ANION GAP 13 5 - 18 06/03/2024 1:13 PM [facility]TER [facility]IN [facility] GLUCOSE 100(H) 70 - 99 mg/dL 06/03/2024 1:13 PM [facility]TER [facility]IN [facility] CALCIUM 9.6 8.8 - 10.4 mg/dL 06/03/2024 1:13 PM [facility] Comment: Reference ranges for this test were updated on 02/29/2024 to reflect our healthy population more accurately. Reference range changes are not retroactively applied to results, but previous results using the same methodology can be interpreted in the context of the new reference range. BUN 12 6 - 20 mg/dL 06/03/2024 1:13 PM [facility] CREATININE 0.74 0.50 - 0.90 mg/dL 06/03/2024 1:13 PM [facility] BUN/CREAT RATIO 16 10 - 20 1:13 PM OUTFITTER CABIN [facility] eGFR >90 >90 mL/min/1.7 3m2 06/03/2024 1:13 PM [facility] Comment:As of 2021, eG FR is calculated by the CKD-EPI creatinine equation without race adjustment. eGFR can be influenced by muscle mass, exercise, and diet. The reported eGFR is an estimation only and is only applicable if the renal function is stable. Blood BLOOD SPECIMEN / Unknown IV Start / Unknown 06/03/2024 12:51 PM OUT[facility]ITTER CABIN 06/03/2024 12:54 PM OUTFITTER CABIN us Ben wSan MD CHEMISTRY Final Res ult [facility] [place] [address], * XR CHEST 2 VIEWS PA AND LATERAL (06/03/2024 12:34 PM OUTFITTER CABIN) Only the most recent of7 resultswithin the time period is included. Anatomical Region Laterality Modality CHEST, THORAX, Lung, HEART Compu frank Radiography 06/03/2024 12:3 4 PM OUTFITTER CABIN Impressions 06/03/2024 1:03 PM OUTFITTER CABIN Faintly visible nodularity mid and lower lungs correspond to pulmonary nodules on recent CT. No focal pulmonary consolidation. No pleural effusion. No pneumothorax. Heart size normal. Port anterior right chest wall with right-sided CVC low SVC. In addition, there is a left-sided port anterior left chest wall with left CVC tip also in the low SVC. Narrative 06/03/2024 1:03 PM OUTFITTER CABIN For Patients: As a result of the Cures Act, medical imaging exams and procedure reports are released immediately into your electronic medical record. You may view this report before your referring provider. If you have questions, please contact your health care provider. EXAM: XR CHEST 2 VIEWS PA AND LATERAL LOCATION: [facility] DATE: 06/03/2024 INDICATION: Chest pain. COMPARISON: 05/04/2024 [...] CHEST 2 VIEWS PA AND LATERAL LOCATION: [facility] DATE: 06/03/2024 INDICATION: Chest pain. COMPARISON: 05/04/2024 [...] * EKG 12 LEAD (06/03/2024 11:48 AM OUTFITTER CABIN) Only the most recent of10 resultswithin the time period is included. Interpretation [...] NOW QTc 454 ms BEYOND NOW P [place] 54 degrees BEYOND NOW R [place] 55 degrees BEYOND NOW T [place] 31 degrees BEYOND NOW 06/03/2024 11:4 8 AM OUTFITTER CABIN 06/04/2024 3:27 AM OUTFITTER CABIN Narrative BEYOND NOW - 06/04/2024 3:27 AM OUTFITTER CABIN Test Indication: chest pain [facility] [place] [facility] Triage EKG ORD Final Result [facility] NOW [place], [place] * (ABNORMAL) HEMOGLOBIN (05/29/2024 2:23 PM OUTFITTER CABIN) Only the most recent of3 resultswithin the time period is included. HEMOGLOBIN 7.1(L) 12.0 - 16.0 g/dL 05/29/2024 2:32 PM OUTFITTER CABIN [facility] MCV 93 80 - 100 fL 05/29/2024 2:32 PM OUTFITTER CABIN [facility] Blood BLOOD SPECIMEN / Unknown IV Start / Unknown 05/29/2024 2:23 PM OUTFITTER CABIN 05/29/2024 2:30 PM OUTFITTER CABIN Ana Pacheco MD HEMATOLOGY Final Result Performing Organization Address City/[facility]/ZIP Co de Phone Number [facility] [address] [place] [address], * (ABNORMAL) RED CELL MORPHOLOGY (05/07/2024 6:20 PM OUTFITTER CABIN) Only the most recent of9 resultswithin the time period is included. POLYCHROMASIA Moderate 05/07/2024 6:33 PM OUTFITTER CABIN [facility] TARGET CELLS Moderate 05/07/2024 6:33 PM OUTFITTER CABIN [facility] RBC COMMENT Present(A) RBC morphology appears normal, RBC morphology within normal limits for newborns. 05/07/2024 6:33 PM OUTFITTER CABIN [facility] *SICKLE CELLS Present 05/07/2024 6:33 PM OUTFITTER CABIN [facility] Blood BLOOD SPECIMEN / Unknown Butterfly / Unknown 05/07/2024 6:20 PM OUTFITTER CABIN 05/07/2024 6:23 PM OUTFITTER CABIN Caryn Rasmussen MD HEMATOLOGY Final Result [facility] [address] [place] [address], [place] [phone] * PLATELET ESTIMATE (05/07/2024 6:20 PM OUTFITTER CABIN) Only the most recent of9 resultswithin the time period is included. PLATELET ESTIMATE Adequate Adequate, No estimate 05/07/2024 6:33 PM OUTFITTER CABIN [facility] Blood BLOOD SPECIMEN / Unknown Butterfly / Unknown 05/07/2024 6:20 PM OUTFITTER CABIN 05/07/2024 6:23 PM OUTFITTER CABIN Caryn Rasmussen MD HEMATOLOGY Final Result [facility] [address] [place] [address], * (ABNORMAL) CBC W PLT NO DIFF (05/07/2024 6:20 PM OUTFITTER CABIN) Only the most recent of5 resultswithin the time period is included. WHITE BLOOD COUNT 15.6(H) 4.5 - 11.0 thou/cu mm 05/07/2024 6:33 PM OUTFITTER CABIN [facility] RED BLOOD COUNT 2.71(L) 4.00 - 5.20 mil/cu mm 05/07/2024 6:33 PM OUTFITTER CABIN [facility] HEMOGLOBIN 8.7(L) 12.0 - 16.0 g/dL 05/07/2024 6:33 PM OUTFITTER CABIN [facility] HEMATOCRIT 25.4(L) 33.0 - 51.0 % 05/07/2024 6:33 PM OUTFITTER CABIN [facility] MCV 94 80 - 100 fL 05/07/2024 6:33 PM OUTFITTER CABIN [facility] MCH 32.1 26.0 - 34.0 pg 05/07/2024 6:33 PM OUTFITTER CABIN [facility] MCHC 34.3 32.0 - 36.0 g/dL 05/07/2024 6:33 PM OUTFITTER CABIN [facility] RDW 23.3(H) 11.5 - 15.5 % 05/07/2024 6:33 PM OUTFITTER CABIN [facility] PLATELET COUNT 356 140 - 440 thou/cu mm 05/07/2024 6:33 PM OUTFITTER CABIN [facility] MPV 9.8 6.5 - 11.0 fL 05/07/2024 6:33 PM OUTFITTER CABIN [facility] NRBC 2.0 % 05/07/2024 6:33 PM OUTFITTER CABIN [facility] ABS NRBC 0.3 thou /cu mm 05/07/2024 6:33 PM OUTFITTER CABIN [facility] Blood BLOOD SPECIMEN / Unknown Butterfly / Unknown 05/07/2024 6:20 PM OUTFITTER CABIN 05/07/2024 6:23 PM OUTFITTER CABIN Caryn Rasmussen MD HEMATOLOGY Final Result Performing Organization Address [facility] Co de Phone Number [facility] [address] [place] [address], [place] [phone] * (ABNORMAL) RETICULOCYTES (05/07/2024 6:20 PM OUTFITTER CABIN) Only the most recent of14 resultswithin the time period is included. RETIC% 20.3(H) 0.5 - 1.5 % 05/07/2024 6:34 PM OUTFITTER CABIN [facility] RETIC (ABSOLUTE) 0.55(H) 0.03 - 0.08 mil/cu mm 05/07/2024 6:34 PM OUTFITTER CABIN [facility] Blood BLOOD SPECIMEN / Unknown Butterfly / Unknown 05/07/2024 6:20 PM OUTFITTER CABIN 05/07/2024 6:23 PM OUTFITTER CABIN Caryn Rasmussen MD HEMATOLOGY Final Result Performing Organization Address City/[facility]/ZIP Co de Phone Number [facility] [address] [place] [address], [place] [phone] * LIPASE (05/07/2024 6:20 PM OUTFITTER CABIN) Only the most recent of2 resultswithin the time period is included. LIPASE 35.9 13.0 - 60.0 IU/L 05/07/2024 6:53 PM OUTFITTER CABIN [facility] Blood BLOOD SPECIMEN / Unknown Butterfly / Unknown 05/07/2024 6:20 PM OUTFITTER CABIN 05/07/2024 6:23 PM OUTFITTER CABIN Caryn Rasmussen MD CHEMISTRY Final Result [facility] [address] [place] [address], * (ABNORMAL) HEPATIC FUNCTION PANEL (05/07/2024 6:20 PM OUTFITTER CABIN) Only the most recent of2 resultswithin the time period is included. ALBUMIN 4.4 4.0 - 4.9 g/dL 05/07/2024 6:53 PM OUTFITTER CABIN [facility] PROTEIN,TOTAL 8.1(H) 6.0 - 8.0 g/dL 05/07/2024 6:53 PM OUTFITTER CABIN [facility] BILIRUBIN,TOTAL 2.2(H) 0.0 - 1.2 mg/dL 05/07/2024 6:53 PM OUTFITTER CABIN [facility] BILIRUBIN,DIRECT 0.9(H) 0.0 - 0.2 mg/dL 05/07/2024 6:53 PM OUTFITTER CABIN [facility] BILIRUBIN,INDIRE CT 1.3(H) 0.2 - 0.8 mg/dL 05/07/2024 6:53 PM OUTFITTER CABIN [facility] ALK PHOSPHATASE 120(H) 35 - 104 IU/L 05/07/2024 6:53 PM OUTFITTER CABIN [facility] ALT (SGPT) 28 10 - 35 IU/L 05/07/2024 6:53 PM OUTFITTER CABIN [facility] AST (SGOT) 46(H) 10 - 35 IU/L 05/07/2024 6:53 PM OUTFITTER CABIN [facility] Blood BLOOD SPECIMEN / Unknown Butterfly / Unknown 05/07/2024 6:20 PM OUTFITTER CABIN 05/07/2024 6:23 PM OUTFITTER CABIN Caryn Rasmussen MD CHEMISTRY Final Result [facility] [address] [place] [phone], * CT CHEST PE STUDY (05/04/2024 1:46 AM OUTFITTER CABIN) Anatomical Region Laterality Modality CHEST, THORAX, HEART Computed To mography 05/04/2024 1:46 AM OUTFITTER CABIN Impressions 05/04/2024 2:01 AM OUTFITTER CABIN 1. No pulmonary embolus. 2. Multiple small bilateral pulmonary nodules and mild enlargement of right hilar lymph nodes not significantly changed from the recent study of 04/06/2024. Differential diagnosis includes inflammatory/infectious and neoplastic etiologies. Narrative 05/04/2024 2:01 AM OUTFITTER CABIN For Patients: As a result of the Century Cures Act, medical imaging exams and procedure reports are released immediately into your electronic medical record. You may view this report before your referring provider. If you have questions, please contact your health care provider. EXAM: CT CHEST PE STUDY LOCATION: [facility] DATE: 05/04/2024 INDICATION: Pulmonary embolism (PE) suspected, [...] provider. EXAM: CT CHEST PE STUDY LOCATION: [facility] DATE: 05/04/2024 INDICATION: Pulmonary embolism (PE) suspected, [...] EXAM REFLEXED PER CRITERIA (05/04/2024 12:07 AM OUTFITTER CABIN) COLOR Yellow Yellow Color 05/04/2024 12:18 AM OUTFITTER CABIN [facility] CLARITY Clear Clear Clarity 05/04/2024 12:18 AM OUTFITTER CABIN [facility] SPECIFIC GRAVITY,URINE 1.015 1.010, 1.015, 1.020, 1.025 05/04/2024 12:18 AM OUTFITTER CABIN [facility] PH,URINE 7.0 6.0, 7.0, 8.0, 5.5, 6.5, 7.5, 8.5 05/04/2024 12:18 AM OUTFITTER CABIN [facility] UROBILINOGEN,Q UALITATIVE Normal Normal EU/dl 05/04/2024 12:18 AM OUTFITTER CABIN [facility] PROTEIN, URINE Negative Negative mg/dL 05/04/2024 12:18 AM [facility] GLUCOSE, URINE Negative Negative mg/dL 05/04/2024 12:18 AM OUTFITTER CABIN [facility] KETONES,URINE Negative Negative mg/dL 05/04/2024 12:18 AM OUTFITTER CABIN [facility] BILIRUBIN,URIN E Negative Negative 05/04/2024 12:18 AM OUTFITTER CABIN [facility] OCCULT BLOOD,URINE Negative Negative 05/04/2024 12:18 AM OUTFITTER CABIN [facility] NITRITE Negative Negative 05/04/2024 12:18 AM OUTFITTER CABIN [facility] LEUKOCYTE ESTERASE Negative Negative 05/04/2024 12:18 AM OUTFITTER CABIN [facility] Urine URINE SPECIMEN / Unknown Non-Blood / Unknown 05/04/2024 12:07 AM OUTFITTER CABIN 05/04/2024 12:13 AM OUTFITTER CABIN us Anika Mccracken MD URINE Final Resu lt [facility] [address] [place] [address], [place] [phone] * URINE (05/04/2024 12:07 AM OUTFITTER CABIN) ,URIN E Negative Negative 05/04/2024 12:22 AM OUTFITTER CABIN [facility] Urine URINE SPECIMEN / Unknown Non-Blood / Unknown 05/04/2024 12:07 AM OUTFITTER CABIN 05/04/2024 12:13 AM OUTFITTER CABIN Anika Mccracken MD URINE Final Resu lt [facility] [address] [place] [address], * CWS PATH REVIEW HEMATOLOGY (05/03/2024 11:52 PM OUTFITTER CABIN) PATH COMMENT Comment: 05/06/2024 7:30 AM OUTFITTER CABIN [facility] Comment:Frequent sickle cell s. Reviewed by Dr. Richar Huffman on 05/05/2024 Blood BLOOD SPECIMEN / Unknown IV Start / Unknown 05/03/2024 11:52 PM OUTFITTER CABIN 05/03/2024 11:52 PM OUTFITTER CABIN Anika Mccracken MD LABORATORY Final Resu lt [facility] [address] [place] [address], [place] * (ABNORMAL) MANUAL DIFFERENTIAL (05/03/2024 11:52 PM OUTFITTER CABIN) Only the most recent of4 resultswithin the time period is included. % NEUTROPHILS 55.0 % 05/04/2024 12:13 AM OUTFITTER CABIN [facility] % LYMPHOCYTES 33.0 % 05/04/2024 12:13 AM OUTFITTER CABIN [facility] % MONOCYTES 10.0 % 05/04/2024 12:13 AM OUTFITTER CABIN [facility] % EOSINOPHILS 2.0 % 05/04/2024 12:13 AM OUTFITTER CABIN [facility] % BASOPHILS 0.0 % 05/04/2024 12:13 AM OUTFITTER CABIN [facility] NEUTROPHILS ABSOLUTE 10.6(H) 1.7 - 7.0 thou/cu mm 05/04/2024 12:13 AM OUTFITTER CABIN [facility] LYMPHOCYTES ABSOLUTE 6.3(H) 0.9 - 2.9 thou/cu mm 05/04/2024 12:13 AM OUTFITTER CABIN [facility] MONOCYTES ABSOLUTE 1.9(H) <0.9 thou/cu mm 05/04/2024 12:13 AM OUTFITTER CABIN [facility] EOSINOPHILS ABSOLUTE 0.4 <0.5 thou/cu mm 05/04/2024 12:13 AM OUTFITTER CABIN [facility] BASOPHILS ABSOLUTE 0.0 <0.3 thou/cu mm 05/04/2024 12:13 AM OUTFITTER CABIN [facility] Blood BLOOD SPECIMEN / Unknown IV Start / Unknown 05/03/2024 11:52 PM OUTFITTER CABIN 05/03/2024 11:52 PM OUTFITTER CABIN Anika Mccracken MD HEMATOLOGY Final Resu lt [facility] [address] [place] [address], * (ABNORMAL) D-DIMER,QUANTITATIVE (05/03/2024 11:52 PM OUTFITTER CABIN) D-DIMER,QUANTI TATIVE 1.51(H) <=0.49 FEU mcg/mL 05/04/2024 12:28 AM OUTFITTER CABIN [facility] Blood BLOOD SPECIMEN / Unknown IV Start / Unknown 05/03/2024 11:52 PM OUTFITTER CABIN 05/03/2024 11:52 PM OUTFITTER CABIN Narrative [facility] - 05/04/2024 12:28 AM OUTFITTER CABIN The cut off value for exclusion of Deep Vein Thrombosis and / or Pulmonary Embolism is 0.50 FEU mcg/mL For patients greater than 50 years of age the upper limit is age dependent and was calculated with the formula: (PATIENT AGE x 0.01) FEU mcg/mL = Upper limit of normal range us Anika Mccracken MD HEMATOLOGY Final Resu lt [facility] [address] [place] [phone], * TYPE AND SCREEN ONLY (04/20/2024 4:43 PM OUTFITTER CABIN) Only the most recent of2 resultswithin the time period is included. [facility] ABORH A Rh Positive 04/20/2024 5:20 PM OUTFITTER CABIN [facility] Comment:Comment: Performed b y [facility], [address] [place] [address] ANTIBODY SCREEN Negative Negative 04/20/2024 5:20 PM OUTFITTER CABIN [facility] Comment:Comment: Performed b y [facility], [address] [place] [address] SPECIMEN EXPIRATION DATE/TIME 04/23/24 23:59 04/20/2024 5:20 PM OUTFITTER CABIN [facility] Blood BLOOD SPECIMEN / Unknown Butterfly / Unknown 04/20/2024 4:43 PM OUTFITTER CABIN 04/20/2024 4:48 PM OUTFITTER CABIN Maria Teresa SUTTON BLOOD B[facility] Final Result Performing Organization Address City/[facility]/ZIP Co de Phone Number [facility] [address] [place] [address], [place] [phone] [facility] [address] [place] [address] * XR ANKLE 3 VIEWS LEFT (04/18/2024 5:09 AM OUTFITTER CABIN) Anatomical Region Laterality Modality ANKLES, ANKLE L Computed Radiogr aphy 04/18/2024 5:09 AM OUTFITTER CABIN Impressions 04/18/2024 5:11 AM OUTFITTER CABIN Normal joint spaces and alignment. No fracture. No significant soft tissue swelling. Ankle mortise intact. Narrative 04/18/2024 5:11 AM OUTFITTER CABIN For Patients: As a result of the Cures Act, medical imaging exams and procedure reports are released immediately into your electronic medical record. You may view this report before your referring provider. If you have questions, please contact your health care provider. EXAM: XR ANKLE 3 VIEWS LEFT LOCATION: [facility] DATE: 04/18/2024 INDICATION: Pain COMPARISON: None. Procedure Note Jayden Correa MD - 04/18/2024 For Patients: As a result of the s Act, medical imagingexams and procedure reports are released immediately into your electronicmedical record. You may view this report before your referring provider.If you have questions, please contact your health care provider. EXAM: XR ANKLE 3 VIEWS LEFT LOCATION: [facility] DATE: 04/18/2024 INDICATION: Pain COMPARISON: None. IMPRESSION: Normal joint spaces and alignment. No fracture. No significant soft tissueswelling. Ankle mortise intact. Elizabeth Duffy MD GENERAL IMAGING Final Res ult * C-REACTIVE PROTEIN (04/18/2024 4:59 AM OUTFITTER CABIN) Only the most recent of4 resultswithin the time period is included. C-REACTIVE PROTEIN <0.3 <0.5 mg/dL 04/18/2024 5:43 AM OUTFITTER CABIN [facility] Blood BLOOD SPECIMEN / Unknown Butterfly / Unknown 04/18/2024 4:59 AM OUTFITTER CABIN 04/18/2024 5:02 AM OUTFITTER CABIN Elizabeth Duffy MD CHEMISTRY Final Res ult [facility] [address] [place] [address], [place] [phone] * SEDIMENTATION RATE (04/18/2024 4:58 AM OUTFITTER CABIN) Only the most recent of3 resultswithin the time period is included. SEDIMENTATION RATE 6 <20 mm/hr 2023 5:17 AM OUTFITTER CABIN [facility] Blood BLOOD SPECIMEN / Unknown Butterfly / Unknown 04/18/2024 4:58 AM OUTFITTER CABIN 04/18/2024 5:02 AM OUTFITTER CABIN us Elizabeth Duffy MD HEMATOLOGY Final Res ult [facility] [address] [place] [address], [place] [phone] * XR HIP 2 OR 3 VIEWS W PELVIS LEFT (04/15/2024 6:34 PM OUTFITTER CABIN) Anatomical Region Laterality Modality HIPS, HIPL, Pelvis Computed Radi ography 04/15/2024 6:34 PM OUTFITTER CABIN Impressions 04/15/2024 6:46 PM OUTFITTER CABIN No acute fracture or subluxation. Sclerosis of the left femoral head in keeping with osteonecrosis. No articular surface collapse. There is additional patchy sclerosis throughout the pelvis greatest in the right iliac bone which may represent additional osteonecrosis. Hip joint spaces are grossly preserved. 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 Narrative 04/15/2024 6:46 PM OUTFITTER CABIN For Patients: As a result of the Cures Act, medical imaging exams and procedure reports are released immediately into your electronic medical record. You may view this report before your referring provider. If you have questions, please contact your health care provider. EXAM: XR HIP 2 OR 3 VIEWS W PELVIS LEFT LOCATION: [facility] DATE: 04/15/2024 INDICATION: left hip pain, history [...] OR 3 VIEWS W PELVIS LEFT LOCATION: [facility] DATE: 04/15/2024 INDICATION: left hip pain, history [...] US ABDOMEN LIMITED GALLBLADDER (04/06/2024 9:38 PM OUTFITTER CABIN) Anatomical Region Laterality Modality Abdomen Ultrasound 04/06/2024 9:38 PM OUTFITTER CABIN Impressions 04/06/2024 9:46 PM OUTFITTER CABIN 1. Cholelithiasis. Otherwise negative. Narrative 04/06/2024 9:46 PM OUTFITTER CABIN For Patients: As a result of the Cures Act, medical imaging exams and procedure reports are released immediately into your electronic medical record. You may view this report before your referring provider. If you have questions, please contact your health care provider. EXAM: US ABDOMEN LIMITED GALLBLADDER LOCATION: [facility] DATE: 04/06/2024 INDICATION: Right upper quadrant pain [...] provider. EXAM: US ABDOMEN LIMITED GALLBLADDER LOCATION: [facility] DATE: 04/06/2024 INDICATION: Right upper quadrant pain [...] (ABNORMAL) COMP METABOLIC PANEL (04/06/2024 8:55 PM OUTFITTER CABIN) SODIUM 140 136 - 145 mmol/L 04/06/2024 9:20 PM OUTFITTER CABIN [facility] POTASSIUM 4.5 3.5 - 5.1 mmol/L 04/06/2024 9:20 PM OUTFITTER CABIN [facility] CHLORIDE 108(H) 98 - 107 mmol/L 04/06/2024 9:20 PM OUTFITTER CABIN [facility] CO2,TOTAL 21(L) 22 - 29 mmol/L 04/06/2024 9:20 PM OUTFITTER CABIN [facility] ANION GAP 11 5 - 18 04/06/2024 9:20 PM OUTFITTER CABIN [facility] GLUCOSE 103(H) 70 - 99 mg/dL 04/06/2024 9:20 PM OUTFITTER CABIN [facility] CALCIUM 9.6 8.8 - 10.4 mg/dL 04/06/2024 9:20 PM OUTFITTER CABIN [facility] Comment: Reference ranges for this test were updated on 02/29/2024 to reflect our healthy population more accurately. Reference range changes are not retroactively applied to results, but previous results using the same methodology can be interpreted in the context of the new reference range. BUN 8 6 - 20 mg/dL 04/06/2024 9:20 PM OUTFITTER CABIN [facility] CREATININE 0.78 0.50 - 0.90 mg/dL 04/06/2024 9:20 PM OUTFITTER CABIN [facility] BUN/CREAT RATIO 10 10 - 20 9:20 PM OUTFITTER CABIN [facility] eGFR >90 >90 mL/min/1.7 3m2 04/06/2024 9:20 PM OUTFITTER CABIN [facility] Comment:As of 2021, eG FR is calculated by the CKD-EPI creatinine equation without race adjustment. eGFR can be influenced by muscle mass, exercise, and diet. The reported eGFR is an estimation only and is only applicable if the renal function is stable. ALBUMIN 4.7 4.0 - 4.9 g/dL 04/06/2024 9:20 PM OUTFITTER CABIN [facility] PROTEIN,TOTAL 8.6(H) 6.0 - 8.0 g/dL 04/06/2024 9:20 PM OUTFITTER CABIN [facility] BILIRUBIN,TOTAL 1.6(H) 0.0 - 1.2 mg/dL 04/06/2024 9:20 PM OUTFITTER CABIN [facility] ALK PHOSPHATASE 124(H) 35 - 104 IU/L 04/06/2024 9:20 PM OUTFITTER CABIN [facility] ALT (SGPT) 36(H) 10 - 35 IU/L 04/06/2024 9:20 PM OUTFITTER CABIN [facility] AST (SGOT) 37(H) 10 - 35 IU/L 04/06/2024 9:20 PM [facility] Blood BLOOD SPECIMEN / Unknown Butterfly / Unknown 04/06/2024 8:55 PM OUTFITTER CABIN 04/06/2024 9:00 PM OUTFITTER CABIN Tanmay SUTTON CHEMISTRY Final R esult [facility] [address] [place] [address], [place] [phone] * TROPONIN T (HS) ACUTE W/2HR REFLEX (04/04/2024 6:54 PM OUTFITTER CABIN) TROPONIN T HS <6 6-10 ng/L ng/L 04/04/2024 7:31 PM OUTFITTER CABIN [facility] Blood BLOOD SPECIMEN / Unknown Butterfly / Unknown 04/04/2024 6:54 PM OUTFITTER CABIN 04/04/2024 6:57 PM OUTFITTER CABIN Narrative [facility] - 04/04/2024 7:31 PM OUTFITTER CABIN hs-cTnT (Elecsys Troponin T Gen 5) concentration [...] CHEMISTRY Final Re sult Performing Organization Address [facility] Co de Phone Number [facility] [address] [place] [address], * (ABNORMAL) PLATELET COUNT (03/30/2024 8:15 AM OUTFITTER CABIN) Only the most recent of2 resultswithin the time period is included. PLATELET COUNT 531(H) 140 - 440 thou/cu mm 03/30/2024 8:22 AM OUTFITTER CABIN [facility] MPV 9.7 6.5 - 11.0 fL 03/30/2024 8:22 AM OUTFITTER CABIN [facility] Blood BLOOD SPECIMEN / Unknown Venipuncture / Unknown 03/30/2024 8:15 AM OUTFITTER CABIN 03/30/2024 8:18 AM OUTFITTER CABIN Albino Loco MD HEMATOLOGY Final Resu lt Performing Organization Address [facility] Co de Phone Number [facility] [address] [place] [phone], * (ABNORMAL) WHITE BLOOD COUNT (03/30/2024 8:15 AM OUTFITTER CABIN) Only the most recent of2 resultswithin the time period is included. WHITE BLOOD COUNT 11.8(H) 4.5 - 11.0 thou/cu mm 03/30/2024 8:22 AM OUTFITTER CABIN [facility] NRBC 0.3 % 03/30/2024 8:22 AM [facility]IN [facility] ABS NRBC 0.0 thou /cu mm 03/30/2024 8:22 AM OUTFITTER CABIN [facility] Blood BLOOD SPECIMEN / Unknown Venipuncture / Unknown 03/30/2024 8:15 AM OUTFITTER CABIN 03/30/2024 8:18 AM OUTFITTER CABIN Albino Loco MD HEMATOLOGY Final Resu lt [facility] [address] [place] [id number], [place] [phone] * (ABNORMAL) SODIUM (03/30/2024 8:15 AM OUTF[facility]TER CABIN) SODIUM 135(L) 136 - 145 mmol/L 03/30/2024 8:39 AM [facility]TER CABIN [facility] Blood BLOOD SPECIMEN / Unknown Venipuncture / Unknown 03/30/2024 8:15 AM OUT[facility]TER CABIN 03/30/2024 8:18 AM OUT[facility] CABIN Albino Loco MD CHEMISTRY Final Resu lt Performing Organization Address City/[facility]/ZIP Co de Phone Number [facility] [address] [place] [id number], [place] [phone] * POTASSIUM (03/30/2024 8:15 AM OUTFITTER CABIN) POTASSIUM 4.3 3.5 - 5.1 mmol/L 03/30/2024 8:39 AM OUT[facility]TER CABIN [facility] Blood BLOOD SPECIMEN / Unknown Venipuncture / Unknown 03/30/2024 8:15 AM OUT[facility]TER CABIN 03/30/2024 8:18 AM OUT[facility]TER CABIN Albino Loco MD CHEMISTRY Final Resu lt [facility] [address] [place] [phone], [place] [phone] * CREATININE (03/30/2024 8:15 AM [facility]) eGFR >90 >90 mL/min/1.7 3m2 03/30/2024 8:39 AM [facility] Comment:As of 2021, eG FR is calculated by the CKD-EPI creatinine equation without race adjustment. eGFR can be influenced by muscle mass, exercise, and diet. The reported eGFR is an estimation only and is only applicable if the renal function is stable. CREATININE 0.56 0.50 - 0.90 mg/dL 03/30/2024 8:39 AM [facility] Blood BLOOD SPECIMEN / Unknown Venipuncture / Unknown 03/30/2024 8:15 AM [facility] 03/30/2024 8:18 AM [facility] Albino Loco MD CHEMISTRY Final Resu lt [facility] [address] [place] [id number], * (ABNORMAL) BILIRUBIN,TOTAL (03/29/2024 5:44 AM [facility]) BILIRUBIN,TOTA L 1.8(H) 0.0 - 1.2 mg/dL 03/29/2024 6:45 AM [facility] Blood BLOOD SPECIMEN / Unknown Venipuncture / Unknown 03/29/2024 5:44 AM [facility] 03/29/2024 6:20 AM [facility]IN Casey CASIANO CHEMISTRY Liss l Result [facility] [address] [place] [id number], * (ABNORMAL) Bilirubin, total/direct FOR ADD ON (03/28/2024 7:53 PM [facility]) BILIRUBIN,TOTA L 2.4(H) 0.0 - 1.2 mg/dL 03/28/2024 9:52 PM [facility] BILIRUBIN,DIRE CT 0.9(H) 0.0 - 0.2 mg/dL 03/28/2024 9:52 PM [facility] BILIRUBIN,HERBERT RECT 1.5(H) 0.2 - 0.8 mg/dL 03/28/2024 9:52 PM [facility] Blood BLOOD SPECIMEN / Unknown IV Start / Unknown 03/28/2024 7:53 PM [facility] 03/28/2024 7:57 PM [facility] Casey CASIANO CHEMISTRY Liss l Result [address] [id number], * BLOOD CULTURE (03/28/2024 2:17 AM [facility]) Only the most recent of2 resultswithin the time period is included. Pathologist [facility] [place] CULTURE No Growth. 04/02/2024 9:01 AM [facility]IN [facility] Blood BLOOD SPECIMEN / Unknown Venipuncture / Unknown 03/28/2024 2:17 AM [facility] 03/28/2024 2:20 AM [facility] Mor Ramsey MD MICROBIOLOGY Final Result [facility] [address] [place] [phone], * PROCALCITONIN (03/28/2024 2:06 AM [facility]) PROCALCITONIN 0.05 ng/ml 03/28/2024 4:15 AM [facility] Blood BLOOD SPECIMEN / Unknown Venipuncture / Unknown 03/28/2024 2:06 AM [facility] 03/28/2024 2:20 AM [facility] Narrative [facility] - 03/28/2024 4:15 AM [facility]IN Procalcitonin for initial assessment of Lower Respiratory [...] concentrations < 2 ng/mL are obtained. Mor Ramsey MD SEND OUTS Final Result [facility] [address] [facility] [place] [address], [place] [phone] from Last 3 Months Insurance [employer] [place] [facility] [place] [id number] [facility] Advance Directives * Full Code (Latest Code Status on File) Date Activated Date Inactivated Comments 03/28/2024 10:36 PM 03/30/2024 11:39 AM Question Answer Comments Code Status Discussion: Reviewed Preferences * Full Code Date Activated Date Inactivated Comments 03/16/2024 1:29 AM 03/18/2024 1:58 PM Question Answer Comments Code Status Discussion: Reviewed Preferences 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
--- OUTSIDE RECORDS SUMMARY | 2024-06-24 20:52 | XMS_ITS | Encounter Summary ---
Author Organization [facility] Address [address] [place] [address] Care Team Providers Care Automatic Car Wash Attendant Name Role Phone No Ref-Primary, Physician Primary Care Provider Mor Ramsey Unavailable Unavailable Case Samuel MD Unavailable [phone] Reason for Referral * Diagnostic Imaging MRI (Routine) - Pending Review Specialty Diagnoses / Procedures Referred By Shahid pendleton Referred To Contact Radiology. 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 If you don't hear from a sales representative jewelry within 2 business days, please call . Additional Information: History of hemoglobin SS disease. History of retinopathy reported from care in [place] but not in a long time. Requesting eye exam for retinopathy Comments Please be aware that coverage of these services is subject to the terms and limitations of your health insurance plan. Call member services at your health plan with any benefit or coverage questions. [employer] [facility] will call you to coordinate your care as prescribed by your provider. If you don't hear from a sales representative jewelry within 2 business days, please call . 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 Requesting eval for further management per ortho's expertise. Scheduling Instructions: [facility] Certified Orthotist will call you to coordinate your care as prescribed by your provider. A sales representative jewelry will call you within 2 business days to help you schedule your appointment, or you may contact the Certified Orthotist Homeworker at: . Comments Please be aware that coverage of these services is subject to the terms and limitations of your health insurance plan. Call member services at your health plan with any benefit or coverage questions. [facility] Certified Orthotist will call you to coordinate your care as prescribed by your provider. A sales representative jewelry will call you within 2 business days to help you schedule your appointment, or you may contact the Certified Orthotist Homeworker at: . 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 If you don t hear from a sales representative jewelry within 2 business days, please call . Additional Information: History of symptomatic gallstones due to sickle cell disease. Previous workup in [place], [place] ([facility]) prior to moving here. Was moving towards cholecystectomy but ended up moving sooner. Requesting eval for gallstones. Comments Please be aware that coverage of these services is subject to the terms and limitations of your health insurance plan. Call member services at your health plan with any benefit or coverage questions. [facility] will call you to coordinate your care as prescribed by the provider. If you don t hear from a sales representative jewelry within 2 business days, please call . WRAPPER Reason for Visit * Reason Comments Oncology Clinic Visit Sickle cell pain c risis * Consultation (Urgent: 3-5 Days) - Pending Review Specialty Diagnoses / Procedures Referred By Contac t Referred To Contact Medical Oncology Diagnoses 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 (H) Mor Ramsey Referral ID Status Reason Start Date Expiration Date V isits Requested Visits Authorized [id number] Pending Review 03/28/2024 03/28/2025 1 1 Encounter Details Date Type Department Care Team (Late st Contact Info) Description 05/01/2024 11:00 AM YARN WRAPPER Oncology Visit [facility] [address] [place] [address] Case Samuel MD [address] [facility] [place] [address], [address] [place] [address] History of transfusion (Primary Dx); [...] file Legal Sex Female 8:25 AM YARN WRAPPER Gender Identity Not on file Sexual Orientation Not on file documented as of this encounter Last Filed Vital Signs Vital Sign Reading Time Taken Comments Blood Pressure 93/62 05/01/2024 10:50 AM YARN WRAPPER Pulse 93 05/01/2024 10:50 AM YARN WRAPPER Temperature 36.8 C (98.2 F) 05/01/2024 10:50 AM YARN WRAPPER Respiratory Rate 16 05/01/2024 10:50 AM YARN WRAPPER Oxygen Saturation 98% 05/01/2024 10:50 AM YARN WRAPPER Inhaled Oxygen Concentration - - Weight 51 kg (112 lb 6.4 oz) 05/01/2024 10:50 AM YARN WRAPPER Height 159.9 cm (5' 2.95) 05/01/2024 10:[address] Body Mass Index 19.94 05/01/2024 10:50 AM YARN WRAPPER documented in this encounter Progress Notes * [...] She said that she was born in [place] but moved throughout her childhood because her dad was in the . She is the youngest of 9 children she said, though she is the only one with sickle cell disease. Among other places, she was living in [place] for a time and then moved to [place]. It was there that shemet her boyfriend. She ultimately moved back to [place] and he came with her. It was there that they had a daughter Chanda, now 2 years old. That was a difficult for her, and she feelslike she never wants to be again. She was living in [place], [place] and receiving care at [facility], though she did not get the sense that hot dipper there was super comfortable with sickle cell [...] about 3 weeks ago. She moved to [place] about 2 months ago. Her boyfriend is [...] worked up for symptomatic gallstones back in [place], but there were some delays in getting a cholecystectomy and by the time it was getting scheduled, they were moving to [place]. She reports that she has had a [...] them both so she can be a [id number] mom. Sickle Cell Disease Comprehensive Checklist Stroke/silent [...] titrate as needed and notify the primary hot dipper via Qustodio message if changes to the plan below are needed. Plan last reviewed with patient: 05/01/2024 Patient background: 29 yo F, recently moved from [place] Sickle Cell Disease History Primary Water Meter Mechanic/CUSTOMER RELATIONSHIP SPECIALIST/PA: Lizzie Genotype: SS Acute Pain Crisis [...] Social Connections: Socially Integrated (03/28/2024) Received from [facility] Social Connections Do you often [...] Wt 51 kg (112 lb 6.4 oz) [id number]% BMI 19.94 kg/m?? GENERAL APPEARANCE: healthy, alert [...] she knows. Even though she lives in [place], she is very willing to come to the [place] to get her care and use the [...] around the hip and femur strong. -Orthopedic bowling ball patcher referral placed. Will defer to them for [...] per the note Case Samuel MD [facility] Water Meter Mechan[facility] Division of Hematology, Oncology, and Transplantation [facility] WRAPPER WRAPPER documented in this encounter Nursing Notes * [...] Provider was notified. Pharmacy name entered into Stream5: [facility] [address] [facility], [place] - [facility] [facility] [place], [place] - [address] [facility] Frailty Screening: Is the patient here for a new oncology consult visit in cancer care? 2. No Clinical concerns: Patient states no new concerns to discuss with provider. 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) Gallstones Expected: 05/01/2024 (Approximate), Expires: 05/01/2025 Orthopedic Certified Orthotist Referral Referral Routine: Next available opening 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 Author Pain Management General On track( 025 12:40 PM YARN WRAPPER) Yes Juhi Benson, RN Note: Goal Statement: [...] Genotype Red Blood Cell (05/29/2024 11:23 AM YARN WRAPPER) See Scanned Result GENOTYPE RED BLOOD CELL-Scanned 05/31/2024 10:16 AM YARN WRAPPER [facility] Blood VENOUS LINE / Unknown IVAD (Port) / Unknown 05/29/2024 11:23 AM YARN WRAPPER 05/29/2024 11:29 AM YARN WRAPPER us Case Samuel MD LAB - BLOOD ORDERABLES Fi nal Result [facility] [address] [place] [address], [facility] [phone] * (ABNORMAL) HGB Eval Reflex to ELP or RBC Solubility (05/29/2024 11:23 AM YARN WRAPPER) Hemoglobin A 15.0(L) 95.0 - 97.9 % 05/31/2024 2:46 PM YARN WRAPPER [facility] Hemoglobin A2 3.0 2.0 - 3.5 % 05/31/2024 2:46 PM YARN WRAPPER [facility] Hemoglobin F 10.8(H) 0.0 - 2.1 % 05/31/2024 2:46 PM YARN WRAPPER [facility] Hemoglobin S 71.2(H) 0.0 - 0.0 % 05/31/2024 2:46 PM YARN WRAPPER [facility] Hemoglobin C 0.0 0.0 - 0.0 % 05/31/2024 2:46 PM YARN WRAPPER [facility] Hemoglobin E 0.0 0.0 - 0.0 % 05/31/2024 2:46 PM YARN WRAPPER [facility] Hemoglobin - Other 0.0 0.0 - 0.0 % 05/31/2024 2:46 PM YARN WRAPPER [facility] Hemoglobin Evaluation See Note 05/31/2024 2:46 PM YARN WRAPPER [facility] Comment: Impression: Hb S present [...] by Alpha Globin (HBA1 and HBA2) Deletion/Duplication ([employer] [facility] test #[id number]) should be considered. Hb S/beta-plus thalassemia is typically characterized by more Hb S than Hb A with the presence of microcytosis. If microcytosis is present and Hb S/beta-plus thalassemia is suspected, Beta Globin (HBB) Sequencing ([employer] [facility] test #[id number]) is suggested. Hemoglobin analysis should be offered [...] developed and its performance characteristics determined by [facility]. It has not been cleared or approved by the U.S. Food and Drug Administration. This test was performed in a CLIA-certified laboratory and is intended for clinical purposes. Sickle Cell Solubility Reflex Positive(A) 05/31/2024 2:46 PM YARN WRAPPER [facility] Comment: INTERPRETIVE INFORMATION: Sickle Cell Solubility Reflex Not Performed: Solubility testing for Hemoglobin S not indicated. 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 Additional charges apply. Conf Previous: Positive for Hemoglobin S by HPLC. Solubility testing performed previously and not repeated with this submission. Hgb Capillary Electrophoresis Reflex Performed 05/31/2024 2:46 PM YARN WRAPPER [facility] Comment: INTERPRETIVE INFORMATION: Hgb Capillary Electrophoresis Reflex Not Performed: Confirmation by Capillary Electrophoresis not indicated. Performed: Results confirmed by Capillary Electrophoresis. Additional charges apply. Conf Previous: Capillary Electrophoresis confirmation performed as part of a previous submission. Confirmation not repeated with this submission. Performed By: [facility] [address] [place] [id number] Pinion Polisher: Devon Healy MD, PhD CLIA Number: [id number] Blood VENOUS LINE / Unknown IVAD (Port) / Unknown 05/29/2024 11:23 AM YARN WRAPPER 05/29/2024 11:30 AM YARN WRAPPER Case Samuel MD LAB - BLOOD ORDERABLES Fi nal Result [facility] [address] [place] [id number], [facility] [phone] * (ABNORMAL) Ferritin (05/29/2024 11:23 AM YARN WRAPPER) Ferritin 1,559(H) 6 - 175 ng/mL 05/29/2024 12:[address] [facility] Blood VENOUS LINE / Unknown IVAD (Port) / Unknown 05/29/2024 11:23 AM YARN WRAPPER 05/29/2024 11:29 AM YARN WRAPPER Case Samuel MD LAB - BLOOD ORDERABLES Fi nal Result [facility] [address] 1st [place] [address] * (ABNORMAL) Routine UA with micro reflex to culture (05/29/2024 11:23 AM YARN WRAPPER) Color Urine Yellow Colorless, Straw, Light Yellow, Yellow 05/29/2024 11:[address] [facility] Appearance Urine Slightly Cloudy(A) Clear 05/29/2024 11:[address] [facility] Glucose Urine Negative Negative mg/dL 05/29/2024 11:41 AM [facility] Bilirubin Urine Negative Negative 11:41 AM [facility] Ketones Urine Negative Negative mg/dL 05/29/2024 11:41 AM [facility] Specific [place] Urine 1.013 1.003 - 1.035 05/29/2024 11:41 AM [facility] Blood Urine Negative Negative 05/29/2024 11:41 AM [facility] pH Urine 7.0 5.0 - 7.0 05/29/2024 11:[address] [facility] Protein Albumin Urine Negative Negative mg/dL 05/29/2024 11:41 AM [facility] Urobilinogen Urine Normal Normal, 2.0 mg/dL 05/29/2024 11:41 AM [facility] Nitrite Urine Negative Negative 05/29/2024 11:41 AM [facility] Leukocyte Esterase Urine Moderate(A) Negative 05/29/2024 11:[address] [facility] Mucus Urine Present(A) None Seen /LPF 05/29/2024 11:41 AM [facility] RBC Urine 6(H) <=2 /HPF 05/29/2024 11:41 AM [facility] WBC Urine 3 <=5 /HPF 05/29/2024 11:41 AM [facility] Squamous Epithelials Urine 18(H) <=1 /HPF 05/29/2024 11:41 AM [facility] Urine URINE SPECIMEN OBTAINED BY CLEAN CATCH PROCEDURE / Unknown Non-blood Collection / Unknown 05/29/2024 11:23 AM YARN WRAPPER 05/29/2024 11:29 AM YARN WRAPPER Narrative [facility] - 05/29/2024 11:41 AM YARN WRAPPER Urine Culture ordered based on laboratory criteria us Case Samuel MD LAB - URINE ORDERABLES Fi nal Result [facility] [address] [facility] 1st [place] [address] * (ABNORMAL) Comprehensive metabolic panel (05/29/2024 11:23 AM YARN WRAPPER) Sodium 139 135 - 145 mmol/L 05/29/2024 11:58 AM [facility] Potassium 4.2 3.4 - 5.3 mmol/L 05/29/2024 11:58 AM [facility] Carbon Dioxide (CO2) 24 22 - 29 mmol/L 05/29/2024 11:58 AM [facility] Anion Gap 10 7 - 15 mmol/L 05/29/2024 11:58 AM [facility] Urea Nitrogen 9.2 6.0 - 20.0 mg/dL 05/29/2024 11:58 AM [facility] Creatinine 0.75 0.51 - 0.95 mg/dL 05/29/2024 11:58 AM [facility] GFR Estimate >90 >60 mL/min/1.7 3m2 05/29/2024 11:58 AM [facility] Comment:eGFR calculated usin 2020 CKD-EPI equation. Calcium 8.9 8.8 - 10.4 mg/dL 05/29/2024 11:58 AM [facility] Chloride 105 98 - 107 mmol/L 05/29/2024 11:58 AM [facility] Glucose 109(H) 70 - 99 mg/dL 05/29/2024 11:58 AM [facility] Alkaline Phosphatase 83 40 - 150 U/L 05/29/2024 11:58 AM [facility] AST 49(H) 0 - 45 U/L 05/29/2024 11:58 AM [facility] ALT 21 0 - 50 U/L 05/29/2024 11:58 AM [facility] Protein Total 7.3 6.4 - 8.3 g/dL 05/29/2024 11:58 AM [facility] Albumin 4.1 3.5 - 5.2 g/dL 05/29/2024 11:58 AM [facility] Bilirubin Total 2.2(H) <=1.2 mg/dL 05/29/2024 11:58 AM [facility] Blood VENOUS LINE / Unknown IVAD (Port) / Unknown 05/29/2024 11:23 AM YARN WRAPPER 05/29/2024 11:29 AM YARN WRAPPER us Case Samuel MD LAB - BLOOD ORDERABLES Fi nal Result [facility] [address] [facility] 1st [place] [address] * (ABNORMAL) Reticulocyte count (05/29/2024 11:23 AM YARN WRAPPER) % Reticulocyte 29.8(H) 0.5 - 2.0 % 05/29/2024 12:[address] [facility] Absolute Reticulocyte 0.631(H) 0.025 - 0.095 10e6/uL 05/29/2024 12:[address] [facility] Blood VENOUS LINE / Unknown IVAD (Port) / Unknown 05/29/2024 11:23 AM YARN WRAPPER 05/29/2024 11:29 AM YARN WRAPPER Case Samuel MD LAB - BLOOD ORDERABLES Fi nal Result [facility] Clinics and Surgery [address] 1st [place] [address] * (ABNORMAL) Vitamin D deficiency screening (04/28/2024 1:50 AM YARN WRAPPER) Vitamin D, Total (25-Hydroxy) 8(L) 20 - 50 ng/mL 05/01/2024 6:42 PM YARN WRAPPER [facility] Comment:severe deficiency Blood BLOOD SPECIMEN / Unknown Venipuncture / Unknown 04/28/2024 1:50 AM YARN WRAPPER 04/28/2024 1:53 AM YARN WRAPPER Narrative [facility] - 05/01/2024 6:42 PM YARN WRAPPER Season, race, dietary intake, and treatment affect the concentration of 22-cucnrac-Gmjtrll D. Values may decrease during winter months and increase during summer months. Vitamin D determination is routinely performed by an immunoassay specific for 25 hydroxyvitamin D3. If an individual is on vitamin D2(ergocalciferol) supplementation, please specify 25 [place] vitamin D2 and D3 level determination by LCMSMS test VITD23. us Case Samuel MD LAB - BLOOD ORDERABLES Fi nal Result [facility] [place] [facility] [address] [facility], [address] [place] [address] documented in this encounter [...] Rule Out COVID-05/08/2024 05/08/2024 05/08/2024 8:18 PM YARN WRAPPER Rule Out COVID-05/16/2024 05/16/2024 05/16/2024 10:46 PM YARN WRAPPER documented as of this encounter Care Teams Automatic Car Wash Attendant Relationship Specialty Start Date End Date No Ref-Primary, Physician PCP - General 03/15/24 06/17/24 Mor Ramsey Medical Student 04/03/24 Case Samuel MD [address] [place] [address] [address], [address] [place] [address] Assigned Pediatric Specialist Provider 05/18/24 documented as of this encounter
--- OUTSIDE RECORDS SUMMARY | 2024-06-24 20:53 | XMS_ITS | Encounter Summary ---
Author Organization [facility] Address [facility] [place] [address] Care Team Providers Care Air Brake Tester Name Role Phone No Ref-Primary, Physician Primary [...] on file Legal Sex Female 8:25 AM GENERAL CARGO CLERK Gender Identity Not on file Sexual Orientation Not on file documented as of this encounter Plan of Treatment Not on file documented as of this encounter Goals Goal Patient Goal Type Associated Problems Recent Progress Patient-Stated? Author Pain Management General On track( 025 12:40 PM GENERAL CARGO CLERK) Yes Juhi Benson, RN Note: Goal [...] on filedocumented in this encounter Care Teams Air Brake Tester Relationship Specialty Start Date End Date No Ref-Primary, Physician PCP - General 03/15/24 06/17/24 Mor Ramsey Medical Student 04/03/24 documented as of this encounter
--- OUTSIDE RECORDS SUMMARY | 2024-06-24 20:53 | XMS_ITS | Encounter Summary ---
Author Organization [facility] Address [facility] [place] [address] Care Team Providers Care Processing Rep Name Role Phone No Ref-Primary, Physician Primary [...] on file Legal Sex Female 8:25 AM BEHAVIORAL HEALTH RN Gender Identity Not on file Sexual Orientation Not on file documented as of this encounter Plan of Treatment Not on file documented as of this encounter Goals Goal Patient Goal Type Associated Problems Recent Progress Patient-Stated? Author Pain Management General On track( 025 12:40 PM BEHAVIORAL HEALTH RN) Yes Juhi Benson, RN Note: Goal Statement: [...] Out COVID-19 05/16/2024 05/16/2024 05/16/2024 10:46 PM BEHAVIORAL HEALTH RN documented as of this encounter Care Teams Processing Rep Relationship Specialty Start Date End Date No Ref-Primary, Physician PCP - General 03/15/24 06/17/24 Mor Ramsey Medical Student 04/03/24 documented as of this encounter
--- OUTSIDE RECORDS SUMMARY | 2024-06-24 20:53 | XMS_ITS | Encounter Summary ---
Author Organization [facility] Address [address] [place] [address] Care Team Providers Care Long Chain Beamer Name Role Phone No Ref-Primary, Physician Primary Care Provider Mor Ramsey Unavailable Unavailable Case Samuel MD Unavailable [phone] Reason for Visit * Reason Onset Date Comments Refill Request 05/22/2024 Encounter Details Date Type Department Care Team ([facility] st Contact Info) Description 05/22/2024 MyC Refill [facility] [address] [place] [address] Case Samuel MD [address] [place] [address], [address] [place] [address] Refill Request Social History Tobacco [...] on file Legal Sex Female 8:25 AM ENTRY LEVEL ADMINISTRATIVE ASSISTANT Gender Identity Not on file Sexual [...] and by whom: Dr. Samuel on 05/01/2024 MARKETING PRODUCTION MANAGER Reviewed: Yes Send to provider: Dr. Samuel and ESTEVAN Reynaga . Y LEVEL ADMINISTRATIVE ASSISTANT documented in this encounter Plan of Treatment Not on file documented as of this encounter Goals Goal Patient Goal Type Associated Problems Recent Progress Patient-Stated? Author Pain Management General On track( 025 12:40 PM ENTRY LEVEL ADMINISTRATIVE ASSISTANT) Yes Juhi Benson, SOFIA Note: Goal Statement: [...] crisis documented in this encounter Care Teams Long Chain Beamer Relationship Specialty Start Date End Date No Ref-Primary, Physician PCP - General 03/15/24 06/17/24 Mor Ramsey Medical Student 04/03/24 Case Samuel MD [address] [place] [address], [address] [place], [place] [id number] Assigned Pediatric Specialist Provider 05/18/24 documented as of this encounter
--- OUTSIDE RECORDS SUMMARY | 2024-06-24 20:53 | XMS_ITS | Encounter Summary ---
Author Organization [place] Address [address] [place] [address] Care Team Providers Care Director Cardiology Name Role Phone No Ref-Primary, Physician Primary Care Provider oMr Ramsey Unavailable Unavailable Case Samuel MD Unavailable [phone] Reason for Visit * Reason Comments Sickle Cell Pain Crisis Encounter Details Date Type Department Care Team (Late st Contact Info) Description 05/19/2024 2:10 AM CHESS INSTRUCTOR - 05/19/2024 6:06 AM [facility] Emergency [facility] Emergency Room [facility] [place] [address] Marilia Summers MD [address] [place] [id number] Sickle cell disease with crisis (H) Discharge [...] on file Legal Sex Female 8:25 AM CHESS INSTRUCTOR Gender Identity Not on file Sexual Orientation Not on file documented as of this encounter Last Filed Vital Signs Vital Sign Reading Time Taken Comments Blood Pressure 110/60 05/19/2024 5:30 AM CHESS INSTRUCTOR Pulse 89 05/19/2024 5:30 AM CHESS INSTRUCTOR Temperature 36.9 C (98.4 F) 05/19/2024 2:16 AM CHESS INSTRUCTOR Respiratory Rate 16 05/19/2024 2:16 AM CHESS INSTRUCTOR Oxygen Saturation 95% 05/19/2024 5:30 AM CHESS INSTRUCTOR Inhaled Oxygen Concentration - - Weight 51.7 kg (114 lb) 05/19/2024 2:16 AM CHESS INSTRUCTOR Height 160 cm (5' 3) 05/19/2024 2:16 AM CHESS INSTRUCTOR Body Mass Index 20.19 05/19/2024 2:16 AM CHESS INSTRUCTOR documented in this encounter Discharge Instructions * Discharge Instructions* Marilia Summers MD - 05/19/2024 6:02 AM CHESS INSTRUCTOR Keep your hematology appointment for the third. Talk with your oncologist about your pain control and what you should do about it while you wait for that appointment. Also you are still a bit more anemic than your hotel desk clerk would like. S INSTRUCTOR * Attachments The following attachments cannot be [...] sleep. 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 C/o 10 generalized back pain Triage Assessment [...] Docusate, Senna PRN 0309 I reviewed the [facility] database for prescriptions. Her last fill was [...] still a bit more anemic than her hotel desk clerk would like and so I encouraged her [...] history is provided by the patient. No american sign language interpreter was used. Gianna Hernández is a 29 [...] hCG Serum Qualitative Negative Negative Narrative Lot#: [id number] Exp: 2025-09-28 CBC with platelets and differential [...] Status --------- ------ CBC with platelets and d...[[id number]] Abnormal Final result Manual Differential[[id number]] Abnormal Final result Please view results for these tests on the individual orders. [facility] Documentation Medical Decision Making Obtained [...] with other provider:Did you involve another provider (window covering sales consultant, , pharmacy, etc.)?: I discussed [...] my direction. Marilia Summers MD Emergency Medicine [facility] EMERGENCY ROOM Marilia Summers MD 05/19/24 0607 S INSTRUCTOR * Moy Stewart RN - 05/19/2024 2:18 AM CST To ED per POV C/o being in sickle cell crisis which awoke her from sleep. 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 C/o 9/10 generalized back pain Triage Assessment (Adult) Row Name 05/19/24 0217 Triage Assessment Airway WDL WDL Respiratory WDL Respiratory WDL WDL Skin Circulation/Temperature WDL Skin Circulation/Temperature WDL WDL Cardiac WDL Cardiac WDL rhythm Pulse Rate & Regularity tachycardic Peripheral/Neurovascular WDL Peripheral Neurovascular WDL WDL Cognitive/Neuro/Behavioral WDL Cognitive/Neuro/Behavioral WDL WDL S INSTRUCTOR documented in this encounter Plan of Treatment Not on file documented as of this encounter Goals Goal Patient Goal Type Associated Problems Recent Progress Patient-Stated? Author Pain Management General On track( 025 12:40 PM CHESS INSTRUCTOR) Yes Juhi Benson, RN Note: Goal Statement: [...] MANUAL DIFFERENTIAL STAT 05/19/2024 3 :05 AM CHESS INSTRUCTOR CBC WITH PLATELETS AND DIFFERENTIAL STAT 05/19/2024 3:05 AM CHESS INSTRUCTOR CBC WITH PLATELETS & DIFFERENTIAL STAT 05/19/2024 3:05 AM CHESS INSTRUCTOR RETICULOCYTE COUNT STAT 05/19/2024 3: 05 AM CHESS INSTRUCTOR HEPATIC FUNCTION PANEL STAT 05/19/2024 3:05 AM CHESS INSTRUCTOR HCG QUALITATIVE STAT 05/19/2024 3:05 AM CHESS INSTRUCTOR CK TOTAL STAT 05/19/2024 3:05 AM CHESS INSTRUCTOR BASIC METABOLIC PANEL STAT 05/19/2024 3:05 AM CHESS INSTRUCTOR documented in this encounter Results * (ABNORMAL) Manual Differential (05/19/2024 3:05 AM [facility]) Pathologist [facility] % Neutrophils 66 % JARET 05/19/2024 4:12 AM [facility] % Lymphocytes 19 % JARET 05/19/2024 4:12 AM [facility] % Monocytes 11 % JARET 05/19/2024 4:12 AM [facility] % Eosinophils 2 % JARET 05/19/2024 4:12 AM [facility] % Basophils 2 % JARET 05/19/2024 4:12 AM [facility] Absolute Neutrophils 9.6(H) 1.6 - 8.3 10e3/uL JARET 05/19/2024 4:12 AM [facility] Absolute Lymphocytes 2.8 0.8 - 5.3 10e3/uL JARET 05/19/2024 4:12 AM [facility] Absolute Monocytes 1.6(H) 0.0 - 1.3 10e3/uL JARET 05/19/2024 4:12 AM [facility] Absolute Eosinophils 0.3 0.0 - 0.7 10e3/uL JARET 05/19/2024 4:12 AM [facility] Absolute Basophils 0.3(H) 0.0 - 0.2 10e3/uL JRAET 05/19/2024 4:12 AM [facility] RBC Morphology Confirmed RBC Indices JARET 05/19/2024 4:12 AM [facility] Platelet Assessment Automated Count Confirmed. Platelet morphology is normal. Automated Count Confirmed. Platelet morphology is normal. JARET 05/19/2024 4:12 AM [facility] Elliptocytes Slight(A) None Seen JARET 05/19/2024 4:12 AM [facility] RBC Fragments Rare(A) None Seen JARET 05/19/2024 4:12 AM [facility] Polychromasia Slight(A) None Seen JARET 05/19/2024 4:12 AM [facility] Sickle Cells Slight(A) None Seen JARET 05/19/2024 4:12 AM [facility] Target Cells Slight(A) None Seen JARET 05/19/2024 4:12 AM [facility] Blood VENOUS LINE / Unknown Venipuncture / Unknown 05/19/2024 3:05 AM [facility] 05/19/2024 3:18 AM CHESS INSTRUCTOR us Marilia Summers MD LAB - BLOOD ORDERABLES Final Result [facility] [address] [place] [address], [facility] * (ABNORMAL) CBC with platelets and differential (05/19/2024 3:05 AM CHESS INSTRUCTOR) [facility] WBC Count 14.5(H) 4.0 - 11.0 10e3/uL 05/19/2024 4:12 AM [facility] RBC Count 2.45(L) 3.80 - 5.20 10e6/uL 05/19/2024 4:12 AM [facility] Hemoglobin 7.7(L) 11.7 - 15.7 g/dL 05/19/2024 4:12 AM [facility] Hematocrit 22.7(L) 35.0 - 47.0 % 05/19/2024 4:12 AM [facility] MCV 93 78 - 100 fL 05/19/2024 4:12 AM [facility] MCH 31.4 26.5 - 33.0 pg 05/19/2024 4:12 AM [facility] MCHC 33.9 31.5 - 36.5 g/dL 05/19/2024 4:12 AM [facility] RDW 23.0(H) 10.0 - 15.0 % 05/19/2024 4:12 AM [facility] Platelet Count 518(H) 150 - 450 10e3/uL 05/19/2024 4:12 AM [facility] Blood VENOUS LINE / Unknown Venipuncture / Unknown 05/19/2024 3:05 AM CHESS INSTRUCTOR 05/19/2024 3:18 AM CHESS INSTRUCTOR us Marilia Summers MD LAB - BLOOD ORDERABLES Final Result [facility] [address] [place] [address], [facility] * HCG QUALitative (blood) (05/19/2024 3:05 AM CHESS INSTRUCTOR) [facility] hCG Serum Qualitative Negative Negative JARET 05/19/2024 3:29 AM [facility] Comment:This test is for scr eening purposes. Results should be interpreted along with the clinical picture. Confirmation testing is available if warranted by ordering [id number], HCG Quantitative . Blood VENOUS LINE / Unknown Venipuncture / Unknown 05/19/2024 3:05 AM CHESS INSTRUCTOR 05/19/2024 3:18 AM CHESS INSTRUCTOR Narrative [facility] - 05/19/2024 3:29 AM [facility] Lot#: [id number] Exp: 2025-09-28 Marilia Summers MD LAB - BLOOD ORDERABLES Final Result Performing Organization Address City/[facility]/ZIP Co de Phone Number [facility] [address] [place] [address] * (ABNORMAL) CK total (05/19/2024 3:05 AM CHESS INSTRUCTOR) [facility] CK 240(H) 26 - 192 U/L 05/19/2024 3:37 AM [facility] Blood VENOUS LINE / Unknown Venipuncture / Unknown 05/19/2024 3:05 AM CHESS INSTRUCTOR 05/19/2024 3:18 AM CHESS INSTRUCTOR Marilia Summers MD LAB - BLOOD ORDERABLES Final Result Performing Organization Address City/[facility]/ZIP Co de Phone Number [facility] [address] [place] [address] * (ABNORMAL) Hepatic function panel (05/19/2024 3:05 AM CHESS INSTRUCTOR) [facility] Protein Total 7.9 6.4 - 8.3 g/dL 05/19/2024 3:37 AM [facility] Albumin 4.3 3.5 - 5.2 g/dL 05/19/2024 3:37 AM [facility] Bilirubin Total 2.6(H) <=1.2 mg/dL 05/19/2024 3:37 AM [facility] Alkaline Phosphatase 128 40 - 150 U/L 05/19/2024 3:37 AM [facility] AST 67(H) 0 - 45 U/L 05/19/2024 3:37 AM [facility] ALT 39 0 - 50 U/L 05/19/2024 3:37 AM [facility] Bilirubin Direct 0.65(H) 0.00 - 0.30 mg/dL 05/19/2024 3:37 AM [facility] Blood VENOUS LINE / Unknown Venipuncture / Unknown 05/19/2024 3:05 AM [facility] 05/19/2024 3:18 AM [facility] us Marilia Summers MD LAB - BLOOD ORDERABLES Final Result [facility] [address] [place] [address], [facility] * (ABNORMAL) Basic metabolic panel (05/19/2024 3:05 AM [facility]) Sodium 137 135 - 145 mmol/L 05/19/2024 3:37 AM [facility] Potassium 4.2 3.4 - 5.3 mmol/L 05/19/2024 3:37 AM [facility] Chloride 107 98 - 107 mmol/L 05/19/2024 3:37 AM [facility] Carbon Dioxide (CO2) 20(L) 22 - 29 mmol/L 05/19/2024 3:37 AM [facility] Anion Gap 10 7 - 15 mmol/L 05/19/2024 3:37 AM [facility] Urea Nitrogen 11.2 6.0 - 20.0 mg/dL 05/19/2024 3:37 AM [facility] Creatinine 0.81 0.51 - 0.95 mg/dL 05/19/2024 3:37 AM [facility] GFR Estimate >90 >60 mL/min/1.7 3m2 05/19/2024 3:37 AM [facility] Comment:eGFR calculated usin 2020 CKD-EPI equation. Calcium 9.1 8.8 - 10.4 mg/dL 05/19/2024 3:37 AM [facility] Comment:Reference intervals for this test were updated on 11/09/2023 to reflect our healthy population more accurately. There may be differences in the flagging of prior results with similar values performed with this method. Those prior results can be interpreted in the context of the updated reference intervals. Glucose 99 70 - 99 mg/dL 05/19/2024 3:37 AM [facility] Blood VENOUS LINE / Unknown Venipuncture / Unknown 05/19/2024 3:05 AM CHESS INSTRUCTOR 05/19/2024 3:18 AM CHESS INSTRUCTOR Marilia Summers MD LAB - BLOOD ORDERABLES Final Result Performing Organization Address [facility] de Phone Number [facility] [address] [place] [address] PROSPER Munoz [address], [facility] * (ABNORMAL) Reticulocyte count (05/19/2024 3:05 AM CHESS INSTRUCTOR) [facility] % Reticulocyte 23.3(H) 0.5 - 2.0 % 05/19/2024 3:47 AM [facility] Absolute Reticulocyte 0.550(H) 0.025 - 0.095 10e6/uL 05/19/2024 3:47 AM [facility] Blood VENOUS LINE / Unknown Venipuncture / Unknown 05/19/2024 3:05 AM CHESS INSTRUCTOR 05/19/2024 3:18 AM CHESS INSTRUCTOR Marilia Summers MD LAB - BLOOD ORDERABLES Final Result Performing Organization Address [facility] de Phone Number [facility] [address] [place] [address] PROSPER Munoz [facility], [facility] documented [...] For 1 dose $Given 05/19/2024 3:10 AM CHESS INSTRUCTOR 25 mg diphenhydrAMINE (BENADRYL) injection 25 mg 25 mg, Intravenous, ONCE, On Wed05/19/24 at 0530, For 1 dose $Given 05/19/2024 5:17 AM CHESS INSTRUCTOR 25 mg HYDROmorphone (DILAUDID) injection 2 mg 2 mg, Intravenous, EVERY 1 HOUR PRN, moderate pain, Starting on Wed05/19/24 at 0241, For 3 doses $Given 05/19/2024 5:30 AM CHESS INSTRUCTOR 2 mg $Given 05/19/2024 4:19 AM CHESS INSTRUCTOR 2 mg $Given 05/19/2024 3:10 AM CHESS INSTRUCTOR 2 mg lactated ringers BOLUS 1,000 mL Intravenous, 1,000 mL, ONCE, at 500 mL/hr, Administer over 2 Hours, On Wed05/19/24 at 0300, For 1 dose Rate/Dose Verify 05/19/2024 4:24 AM CHESS INSTRUCTOR 500 mL/hr $New Bag 05/19/2024 3:15 AM CHESS INSTRUCTOR 1,000 mLs 500 mL/hr ondansetron (ZOFRAN) injection 8 mg 8 mg, Intravenous, ONCE, Administer over 2-5 Minutes, On Wed05/19/24 at 0530, For 1 dose $Given 05/19/2024 5:17 AM CHESS INSTRUCTOR 8 mg documented in this encounter Active and Recently Administered Medications Times are shown in CHESS INSTRUCTOR. Scheduled Medication Order 05/17/2024 05/18/2024 05/19/2024 diphenhydrAMINE [...] 3 doses 0310 ($Given - Provi nas: jC Stewart RN)0419 ($Given - Provider: Cj Stewart RN)0530 ($Given - Provider: Cj Stewart RN) documented in this encounter Care Teams Director Cardiology Relationship Specialty Start Date End Date No Ref-Primary, Physician PCP - General 03/15/24 06/17/24 Mor Ramsey Medical Student 04/03/24 Case Samuel MD [address] [place] [address], [address] [place] [address] Assigned Pediatric Specialist Provider 05/18/24 documented as of this encounter
--- OUTSIDE RECORDS SUMMARY | 2024-06-24 20:53 | XMS_ITS | Encounter Summary ---
Author Organization [place] Address [address] [place] [address]. [place] [address] Care Team Providers Care Policy Advisor Name Role Phone No Ref-Primary, Physician Primary Care Provider Mor Ramsey Unavailable Unavailable Case Samuel MD Unavailable [phone] Encounter Details Date Type Department Care Team [...] on file Legal Sex Female 8:25 AM DENTAL TECHNOLOGY ADVISOR Gender Identity Not on file Sexual Orientation Not on file documented as of this encounter Plan of Treatment Not on file documented as of this encounter Goals Goal Patient Goal Type Associated Problems Recent Progress Patient-Stated? Author Pain Management General On track( 025 12:40 PM DENTAL TECHNOLOGY ADVISOR) Yes Juhi Benson, RN Note: Goal Statement: [...] on filedocumented in this encounter Care Teams Policy Advisor Relationship Specialty Start Date End Date No Ref-Primary, Physician PCP - General 03/15/24 06/17/24 Mor Ramsey Medical Student 04/03/24 Case Samuel MD [address] [place] [address] 484, [address] [place] [address] Assigned Pediatric Specialist Provider 05/18/24 documented as of this encounter
--- OUTSIDE RECORDS SUMMARY | 2024-06-24 20:53 | XMS_ITS | Encounter Summary ---
Author Organization [place] Address [address] [place] [address]. [place] [address] Care Team Providers Care Vice President Sales Name Role Phone No Ref-Primary, Physician Primary Care Provider Mor Ramsey Unavailable Unavailable Case Samuel MD Unavailable [phone] Encounter Details Date Type Department Care Team [...] on file Legal Sex Female 8:25 AM CAPTAIN WAITER Gender Identity Not on file Sexual Orientation Not on file documented as of this encounter Plan of Treatment Not on file documented as of this encounter Goals Goal Patient Goal Type Associated Problems Recent Progress Patient-Stated? Author Pain Management General On track( 025 12:40 PM CAPTAIN WAITER) Yes Juhi Benson, RN Note: Goal Statement: [...] on filedocumented in this encounter Care Teams Vice President Sales Relationship Specialty Start Date End Date No Ref-Primary, Physician PCP - General 03/15/24 06/17/24 Mor Ramsey Medical Student 04/03/24 Case Samuel MD [address] [place] [address] 484, [address] [place] [address] Assigned Pediatric Specialist Provider 05/18/24 documented as of this encounter
--- OUTSIDE RECORDS SUMMARY | 2024-06-24 20:53 | XMS_ITS | Encounter Summary ---
Author Organization [facility] Address [address] [place] [id number] Care Team Providers Care [employer] Name Role Phone No Ref-Primary, Physician Primary Care Provider Mor Ramsey Unavailable Unavailable Reason for Visit * Reason Comments Sickle Cell Pain Crisis Encounter Details Date Type Department Care Team ([facility] st Contact Info) Description 05/16/2024 9:41 PM MEDICAL EDITOR - 05/17/2024 12:53 AM [facility] Emergency [facility] Emergency Room [facility] [place] [address] Guille Davis, DO [address] [place] [id number] Sickle cell pain crisis (H) Discharge [...] on file Legal Sex Female 8:25 AM MEDICAL EDITOR Gender Identity Not on file Sexual Orientation Not on file documented as of this encounter Last Filed Vital Signs Vital Sign Reading Time Taken Comments Blood Pressure 107/62 05/17/2024 12:00 AM MEDICAL EDITOR Pulse 93 05/17/2024 12:00 AM MEDICAL EDITOR Temperature 36.8 C (98.3 F) 05/16/2024 9:35 PM MEDICAL EDITOR Respiratory Rate 15 05/17/2024 12:00 AM MEDICAL EDITOR Oxygen Saturation 94% 05/17/2024 12:00 AM MEDICAL EDITOR Inhaled Oxygen Concentration - - Weight 52.2 kg (115 lb) 05/16/2024 9:35 PM MEDICAL EDITOR Height 154.9 cm (5' 1) 05/16/2024 9:35 PM MEDICAL EDITOR Body Mass Index 21.73 05/16/2024 9:35 PM MEDICAL EDITOR documented in this encounter Discharge Instructions * Attachments The following attachments cannot be sent through Care Everywhere. * Sickle Cell Crisis ([place]) documented in this encounter Medications at Time [...] being printed. States she doesn't need them. CAL EDITOR * Obie Schofield RN - 05/17/2024 12:16 AM CST Pt says she'll be good for discharge after this 3rd dose of Dilaudid. Provider notified. Pt is vitally stable and pain under control and ok with the plan of care. All questions were answered. CAL EDITOR * Obie Schofield RN - 05/16/2024 11:40 PM CST Pt received 2nd dose of Dilaudid. Pt says the 1st dose has helped with her pain, bringing it down to 7/10 from 9/10. She has relief from itchiness following Benadryl as well. Pt is resting in bed, onher phone, and denies other needs at this time. On continuous pulse ox. CAL EDITOR * Guille Davis DO - 05/16/2024 9:53 [...] another provider (senior consultant, , pharmacy, etc.)?: No Discharge. No [...] Currently Drug use: Never Social History Narrative Masd-ua-yril mom. Recently moved to [place] from [place], [place]. She is 1 of 9 [...] Social Connections: Socially Integrated (03/28/2024) Received from [facility] Social Connections Do you often [...] the Xpert Xpress CoV2/Flu/RSV Assay on the [employer] GeneXpert Instrument. This test should be ordered [...] management. This test was validated by the [facility] [employer]. These laboratories are certified under the Clinical Laboratory Improvement Amendments of 1988 (CLIA-88) as qualified to perfom high complexity laboratory testing. CBC with platelets + differential Narrative The following orders were created for panel order CBC with platelets + differential. Procedure Abnormality Status --------- ------ CBC with platelets and d...[[id number]] Abnormal Final result RBC and Platelet Morphology[[id number]] Abnormal Final result Please view results for [...] on file Guille Davis D.O. Emergency Medicine [facility] EMERGENCY ROOM [facility] [facility] [address] Dept: [phone] Guille Davis DO 05/17/24 0048 CAL EDITOR * Aminata Farley RN - 05/16/2024 9:37 [...] WDL WDL Cognitive/Neuro/Behavioral WDL Cognitive/Neuro/Behavioral WDL WDL [place] Coma Scale Best Eye Response 4-->(E4) spontaneous Best Motor Response 6-->(M6) obeys commands Best Verbal Response 5-->(V5) oriented Lester Coma Scale Score 15 CAL EDITOR documented in this encounter Plan of Treatment Not on file documented as of this encounter Goals Goal Patient Goal Type Associated Problems Recent Progress Patient-Stated? Author Pain Management General On track( 025 12:40 PM MEDICAL EDITOR) Yes Juhi Benson, RN Note: Goal Statement: [...] AND PLATELET MORPHOLOGY STAT 05/16/2024 10:17 PM MEDICAL EDITOR CBC WITH PLATELETS AND DIFFERENTIAL STAT 05/16/2024 10:17 PM MEDICAL EDITOR CBC WITH PLATELETS & DIFFERENTIAL STAT 05/16/2024 10:17 PM MEDICAL EDITOR BASIC METABOLIC PANEL STAT 05/16/2024 10:17 PM MEDICAL EDITOR INFLUENZA A/B, RSV AND SARS-COV2 PCR STAT 05/16/2024 10:00 PM MEDICAL EDITOR documented in this encounter Results * (ABNORMAL) RBC and Platelet Morphology (05/16/2024 10:17 PM MEDICAL EDITOR) Pathologist [facility] RBC Morphology Confirmed RBC Indices 05/16/2024 10:54 PM MEDICAL EDITOR [facility] Platelet Assessment Automated Count Confirmed. Platelet morphology is normal. Automated Count Confirmed. Platelet morphology is normal. JARET 05/16/2024 10:54 PM MEDICAL EDITOR [facility] Polychromasia Slight(A) None Seen JARET 05/16/2024 10:54 PM MEDICAL EDITOR [facility] Reactive Lymphocytes Present(A) None Seen JARET 05/16/2024 10:54 PM [facility] Sickle Cells Moderate(A) None Seen JARET 05/16/2024 10:54 PM MEDICAL EDITOR [facility] Target Cells Slight(A) None Seen JARET 05/16/2024 10:54 PM [facility] Blood BLOOD SPECIMEN / Unknown Venipuncture / Unknown 05/16/2024 10:17 PM MEDICAL EDITOR 05/16/2024 10:24 PM MEDICAL EDITOR Guille Davis DO LAB - BLOOD ORDERABLES Fin al Result [facility] [address] [place] [address], [facility] * (ABNORMAL) CBC with platelets and differential (05/16/2024 10:17 PM MEDICAL EDITOR) WBC Count 14.0(H) 4.0 - 11.0 10e3/uL 05/16/2024 10:50 PM [facility] RBC Count 2.40(L) 3.80 - 5.20 10e6/uL 05/16/2024 10:50 PM [facility] Hemoglobin 7.7(L) 11.7 - 15.7 g/dL 05/16/2024 10:50 PM [facility] Hematocrit 21.8(L) 35.0 - 47.0 % 05/16/2024 10:50 PM [facility] MCV 91 78 - 100 fL 05/16/2024 10:50 PM [facility] MCH 32.1 26.5 - 33.0 pg 05/16/2024 10:50 PM [facility] MCHC 35.3 31.5 - 36.5 g/dL 05/16/2024 10:50 PM [facility] RDW 22.4(H) 10.0 - 15.0 % 05/16/2024 10:50 PM [facility] Platelet Count 521(H) 150 - 450 10e3/uL 05/16/2024 10:50 PM [facility] % Neutrophils 55 % 05/16/2024 10:50 PM [facility] % Lymphocytes 25 % 05/16/2024 10:50 PM [facility] % Monocytes 16 % 05/16/2024 10:50 PM [facility] % Eosinophils 1 % 05/16/2024 10:50 PM [facility] % Basophils 1 % 05/16/2024 10:50 PM [facility] % Immature Granulocytes 1 % 05/16/2024 10:50 PM [facility] NRBCs per 100 WBC 2(H) <1 /100 025 10:50 PM [facility] Absolute Neutrophils 7.7 1.6 - 8.3 10e3/uL 05/16/2024 10:50 PM [facility] Absolute Lymphocytes 3.6 0.8 - 5.3 10e3/uL 05/16/2024 10:50 PM [facility] Absolute Monocytes 2.3(H) 0.0 - 1.3 10e3/uL 05/16/2024 10:50 PM [facility] Absolute Eosinophils 0.2 0.0 - 0.7 10e3/uL 05/16/2024 10:50 PM [facility] Absolute Basophils 0.1 0.0 - 0.2 10e3/uL 05/16/2024 10:50 PM [facility] Absolute Immature Granulocytes 0.1 <=0.4 10e3/uL 05/16/2024 10:50 PM [facility] Absolute NRBCs 0.3 10e3/uL 05/16/2024 10:50 PM [facility] Blood BLOOD SPECIMEN / Unknown Venipuncture / Unknown 05/16/2024 10:17 PM MEDICAL EDITOR 05/16/2024 10:24 PM MEDICAL EDITOR us Guille Davis DO LAB - BLOOD ORDERABLES Fin al Result [facility] [address] [place] [address], [place] * (ABNORMAL) Basic metabolic panel (05/16/2024 10:17 PM MEDICAL EDITOR) [facility] Sodium 138 135 - 145 mmol/L 05/16/2024 10:42 PM [facility] Potassium 4.3 3.4 - 5.3 mmol/L 05/16/2024 10:42 PM [facility] Chloride 105 98 - 107 mmol/L 05/16/2024 10:42 PM [facility] Carbon Dioxide (CO2) 22 22 - 29 mmol/L 05/16/2024 10:42 PM [facility] Anion Gap 11 7 - 15 mmol/L 05/16/2024 10:42 PM [facility] Urea Nitrogen 12.0 6.0 - 20.0 mg/dL 05/16/2024 10:42 PM [facility] Creatinine 0.80 0.51 - 0.95 mg/dL 05/16/2024 10:42 PM [facility] GFR Estimate >90 >60 mL/min/1.7 3m2 05/16/2024 10:42 PM [facility] Comment:eGFR calculated usin 2020 CKD-EPI equation. Calcium 8.7(L) 8.8 - 10.4 mg/dL 05/16/2024 10:42 PM [facility] Comment:Reference intervals for this test were updated on 11/09/2023 to reflect our healthy population more accurately. There may be differences in the flagging of prior results with similar values performed with this method. Those prior results can be interpreted in the context of the updated reference intervals. Glucose 118(H) 70 - 99 mg/dL 05/16/2024 10:42 PM [facility] Blood BLOOD SPECIMEN / Unknown Venipuncture / Unknown 05/16/2024 10:17 PM MEDICAL EDITOR 05/16/2024 10:24 PM [facility] us Guille Davis DO LAB - BLOOD ORDERABLES Fin al Result [facility] [address] [place] [address], [facility] * Influenza A/B, RSV and SARS-CoV2 PCR (COVID-19) Nasopharyngeal (05/16/2024 10:00 PM MEDICAL EDITOR) Influenza A PCR Negative Negative 05/16/2024 10:46 PM [facility] Influenza B PCR Negative Negative 05/16/2024 10:46 PM MEDICAL EDITOR [facility] RSV PCR Negative Negative 05/16/2024 10:46 PM MEDICAL EDITOR [facility] SARS CoV2 PCR Negative Negative 05/16/2024 10:46 PM MEDICAL EDITOR [facility] Comment:NEGATIVE: SARS-CoV-2 (COVID-19) RNA not detected, presumed negative. Swab NASOPHARYNGEAL STRUCTURE / Unknown Non-blood Collection / Unknown 05/16/2024 10:00 PM MEDICAL EDITOR 05/16/2024 10:02 PM MEDICAL EDITOR [facility] - 05/16/2024 10:46 PM MEDICAL EDITOR Testing was performed using the Xpert Xpress CoV2/Flu/RSV Assay on the [employer] Instrument. This test should be ordered for [...] management. This test was validated by the [facility] [employer]. These laboratories are certified under the Clinical Laboratory Improvement Amendments of 1988 (CLIA-88) as qualified to perfom high complexity laboratory testing. Guille Davis DO LAB - MICRO GENERAL ORDERA BLES Final Result [facility] [address] [place] [address], [facility] documented in this encounter [...] For 1 dose $Given 05/16/2024 10:37 PM MEDICAL EDITOR 50 mg HYDROmorphone (DILAUDID) injection 1 mg 1 mg, Intravenous, ONCE, On Wed05/16/24 at 2200, For 1 dose $Given 05/16/2024 10:37 PM MEDICAL EDITOR 1 mg HYDROmorphone (DILAUDID) injection 1 mg 1 mg, Intravenous, ONCE, On Wed05/17/24 at 0000, For 1 dose $Given 05/16/2024 11:37 PM MEDICAL EDITOR 1 mg HYDROmorphone (DILAUDID) injection 1 mg 1 mg, Intravenous, ONCE, On Wed05/17/24 at 0030, For 1 dose $Given 05/17/2024 12:13 AM MEDICAL EDITOR 1 mg documented in this encounter Active and Recently Administered Medications Times are shown in MEDICAL EDITOR. Scheduled Medication Order 05/15/2024 05/16/2024 05/17/2024 diphenhydrAMINE [...] Out COVID-19 05/16/2024 05/16/2024 05/16/2024 10:46 PM MEDICAL EDITOR documented as of this encounter Care Teams [employer] Relationship Specialty Start Date End Date No Ref-Primary, Physician PCP - General 03/15/24 06/17/24 oMr Ramsey Medical Student 04/03/24 documented as of this encounter
--- OUTSIDE RECORDS SUMMARY | 2024-06-24 20:53 | XMS_ITS | Encounter Summary ---
Author Organization [place] Address [address] [place] [id number] Care Team Providers Care Tip Mender Name Role Phone No Ref-Primary, Physician Primary Care Provider Mor Ramsey Unavailable Unavailable Case Samuel MD Unavailable [phone] Reason for Visit * Reason Comments Sickle Cell Pain Crisis Chest Pain Encounter Details Date Type Department Care Team (Late st Contact Info) Description 05/20/2024 7:30 AM HVAC/R INSTRUCTOR - 05/20/2024 11:15 AM [facility] Emergency [facility] Emergency Room [address] [place] [address] Stiven Madsen MD [facility] [address], [place] [id number] Sickle cell pain crisis (H) Discharge Disposition: [...] on file Legal Sex Female 8:25 AM HVAC/R INSTRUCTOR Gender Identity Not on file Sexual Orientation Not on file documented as of this encounter Last Filed Vital Signs Vital Sign Reading Time Taken Comments Blood Pressure 115/59 05/20/2024 11:00 AM HVAC/R INSTRUCTOR Pulse 76 05/20/2024 11:00 AM HVAC/R INSTRUCTOR Temperature 37.3 C (99.2 F) 05/20/2024 7:33 AM HVAC/R INSTRUCTOR Respiratory Rate 20 05/20/2024 11:00 AM HVAC/R INSTRUCTOR Oxygen Saturation 100% 05/20/2024 11:00 AM HVAC/R INSTRUCTOR Inhaled Oxygen Concentration - - Weight 50.8 kg (112 lb) 05/20/2024 7:33 AM HVAC/R INSTRUCTOR Height 154.9 cm (5' 1) 05/20/2024 7:33 AM HVAC/R INSTRUCTOR Body Mass Index 21.16 05/20/2024 7:33 AM HVAC/R INSTRUCTOR documented in this encounter Discharge Instructions * Discharge Instructions* Stiven Madsen MD - 05/20/2024 11:08 AM HVAC/R INSTRUCTOR Please continue working with your solar sales associate after this and recent hospital visits. Try to make sure that you are drinking plenty of liquids to keep yourself hydrated. Continue to take your usual pain medications. If you have other concerns specifically productive cough, severe chest pain, shortness of breath, or other immediate concern we should reevaluate in the emergency department. /R INSTRUCTOR documented in this encounter Medications at Time [...] in 10 minutes. Message sent to provider. /R INSTRUCTOR * Suzanne Cadet RN - 05/20/2024 10:00 AM CST Pt requesting additional medication for pain. Also requesting medication for itching. Message sent to provider. Medicated per provider order. /R INSTRUCTOR * Yanna Huerta RN - 05/20/2024 8:43 AM CST IV infiltrated and removed, LES RN coming to try for IV /R INSTRUCTOR * Yanna Huerta RN - 05/20/2024 8:10 AM CST Introduced self to patient. Whiteboard updated. Plan of care and length of time discussed with patient. Will continue to monitor. Yanna Huerta RN.......05/20/2024 8:37 AM /R INSTRUCTOR * Stiven Madsen MD - 05/20/2024 7:31 [...] cell disease. Radial instantly establishing care in [place] and with several ED visits across the [...] other provider:Did you involve another provider (life consultant, MH, pharmacy, etc.)?: No Discharge. 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 Recently moved to [place] from [place], [place]. She is 1 of 9 [...] Social Connections: Socially Integrated (03/28/2024) Received from [employer] [facility] Social Connections Do you often [...] wave abnormality. Rate: 86 Rhythm: Sinus rhythm Putney: 18 55 25 NV Interval: 154 QRS Interval: 78 QTc Interval: 370/442 ST Changes: None Comparison: When compared with ECG of 05/14/24, no significant change I have independently reviewed and interpreted the EKG(s) documented above. I, Thien Trevizo, am serving as a scribe to document services personally performed by Dr. Iyer, based on my observation and the provider's statements to me. I, Stiven Madsen MD attestthat hTien Trevizo is acting in a scribe capacity, has observed my performance of the services and has documented them in accordance with my direction. Stiven Madsen M.D. Emergency Medicine [facility] EMERGENCY ROOM [address] [place] [id number] Dept: [phone] Stiven Madsen MD 05/20/24 1350 /R INSTRUCTOR * Stefani Huizar RN - 05/20/2024 7:27 AM CST Pt c/o pain all over body, hx sickle cell and feels like flare up started 2 days ago. Pt also c/o left sided chest pain, pain with taking a deep breath. Pt was seen here yesterday as well for same states did not have chest pain then /R INSTRUCTOR /R INSTRUCTOR documented in this encounter Plan of Treatment Not on file documented as of this encounter Goals Goal Patient Goal Type Associated Problems Recent Progress Patient-Stated? Author Pain Management General On track( 025 12:40 PM HVAC/R INSTRUCTOR) Yes Juhi Benson, RN Note: Goal [...] CHEST 2 VIEWS STAT 05/20/2024 9:30 AM HVAC/R INSTRUCTOR EXTRA TUBE STAT 05/20/2024 9:09 AM HVAC/R INSTRUCTOR EXTRA GREEN TOP (LITHIUM HEPARIN) TUBE STAT 05/20/2024 9:09 AM HVAC/R INSTRUCTOR RBC AND PLATELET MORPHOLOGY STAT 05/20/2024 9:09 AM HVAC/R INSTRUCTOR CBC WITH PLATELETS AND DIFFERENTIAL STAT 05/20/2024 9:09 AM HVAC/R INSTRUCTOR CBC WITH PLATELETS & DIFFERENTIAL STAT 05/20/2024 9:09 AM HVAC/R INSTRUCTOR RETICULOCYTE COUNT STAT 05/20/2024 9: 09 AM HVAC/R INSTRUCTOR BASIC METABOLIC PANEL STAT 05/20/2024 9:09 AM HVAC/R INSTRUCTOR BASIC METABOLIC PANEL STAT 05/20/2024 8:21 AM HVAC/R INSTRUCTOR ECG 12-LEAD WITH MUSE [facility] STAT 05/20/2024 7:36 AM HVAC/R INSTRUCTOR documented in this encounter Results * Chest XR, PA & LAT (05/20/2024 9:30 AM HVAC/R INSTRUCTOR) Anatomical Region Laterality Modality Chest Digital Radiogra phy 05/20/2024 9:30 AM HVAC/R INSTRUCTOR Impressions 05/20/2024 9:38 AM HVAC/R INSTRUCTOR IMPRESSION: Slightly increased bilateral mid to lower lung patchy opacities which may reflect atelectatic changes or pneumonic infiltrates. No pleural effusion. Normal heart size. Multiple H-shaped thoracic vertebra consistent with the history of sickle cell disease. Narrative 05/20/2024 9:38 AM HVAC/R INSTRUCTOR EXAM: XR CHEST 2 VIEWS LOCATION: [facility] DATE: 05/20/2024 INDICATION: Chest pain, sickle cell patient COMPARISON: Chest x-ray 05/08/2024 Procedure Note Twin Marin MD - 05/20/2024 EXAM: XR CHEST 2 VIEWS LOCATION: [facility] DATE: 05/20/2024 INDICATION: Chest pain, sickle cell [...] RBC and Platelet Morphology (05/20/2024 9:09 AM HVAC/R INSTRUCTOR) Pathologist [facility] RBC Morphology Confirmed RBC Indices 05/20/2024 9:47 AM HVAC/R INSTRUCTOR [facility] Platelet Assessment Automated Count Confirmed. Platelet morphology is normal. Automated Count Confirmed. Platelet morphology is normal. JARET 05/20/2024 9:47 AM HVAC/R INSTRUCTOR [facility] Polychromasia Slight(A) None Seen JARET 05/20/2024 9:47 AM [facility] Reactive Lymphocytes Present(A) None Seen JARET 05/20/2024 9:47 AM [facility] Sickle Cells Moderate(A) None Seen JARET 05/20/2024 9:47 AM [facility] Target Cells Slight(A) None Seen JARET 05/20/2024 9:47 AM [facility] Blood VENOUS LINE / Unknown Venipuncture / Unknown 05/20/2024 9:09 AM HVAC/R INSTRUCTOR 05/20/2024 9:14 AM [facility] us Stiven Madsen MD LAB - BLOOD ORDERABLES Final Result [facility] [address] [place] [address], [facility] * (ABNORMAL) Basic metabolic panel (05/20/2024 9:09 AM [facility]) Sodium 137 135 - 145 mmol/L 05/20/2024 9:42 AM [facility] Potassium 4.8 3.4 - 5.3 mmol/L 05/20/2024 9:42 AM [facility] Chloride 105 98 - 107 mmol/L 05/20/2024 9:42 AM [facility] Carbon Dioxide (CO2) 22 22 - 29 mmol/L 05/20/2024 9:42 AM [facility] Anion Gap 10 7 - 15 mmol/L 05/20/2024 9:42 AM [facility] Urea Nitrogen 7.4 6.0 - 20.0 mg/dL 05/20/2024 9:42 AM [facility] Creatinine 0.82 0.51 - 0.95 mg/dL 05/20/2024 9:42 AM [facility] GFR Estimate >90 >60 mL/min/1.7 3m2 05/20/2024 9:42 AM [facility] Comment:eGFR calculated usin 2020 CKD-EPI equation. Calcium 9.3 8.8 - 10.4 mg/dL 05/20/2024 9:42 AM [facility] Comment:Reference intervals for this test were updated on 11/09/2023 to reflect our healthy population more accurately. There may be differences in the flagging of prior results with similar values performed with this method. Those prior results can be interpreted in the context of the updated reference intervals. Glucose 107(H) 70 - 99 mg/dL 05/20/2024 9:42 AM [facility] Blood VENOUS LINE / Unknown Venipuncture / Unknown 05/20/2024 9:09 AM HVAC/R INSTRUCTOR 05/20/2024 9:14 AM HVAC/R INSTRUCTOR Stiven Madsen MD LAB - BLOOD ORDERABLES Final Result Performing Organization Address City/[facility]/ZIP Co de Phone Number [facility] [address] [place] [address] [place] [address], [facility] * Extra Green Top ([place] Heparin) Tube (05/20/2024 9:09 AM HVAC/R INSTRUCTOR) Pathologist [facility] Hold Specimen JI 05/20/2024 10:16 AM [facility] Blood VENOUS LINE / Unknown Venipuncture / Unknown 05/20/2024 9:09 AM HVAC/R INSTRUCTOR 05/20/2024 9:14 AM HVAC/R INSTRUCTOR Deshawn Arredondo MD LAB - BLOOD ORDERABLES Liss l Result Performing Organization Address [facility] Co de Phone Number [facility] [address] [place] [address] * (ABNORMAL) CBC with platelets and differential (05/20/2024 9:09 AM HVAC/R INSTRUCTOR) WBC Count 16.0(H) 4.0 - 11.0 10e3/uL 05/20/2024 9:47 AM [facility] RBC Count 2.57(L) 3.80 - 5.20 10e6/uL 05/20/2024 9:47 AM [facility] Hemoglobin 8.4(L) 11.7 - 15.7 g/dL 05/20/2024 9:47 AM [facility] Hematocrit 23.7(L) 35.0 - 47.0 % 05/20/2024 9:47 AM [facility] MCV 92 78 - 100 fL 05/20/2024 9:47 AM [facility] MCH 32.7 26.5 - 33.0 pg 05/20/2024 9:47 AM [facility] MCHC 35.4 31.5 - 36.5 g/dL 05/20/2024 9:47 AM [facility] RDW 22.8(H) 10.0 - 15.0 % 05/20/2024 9:47 AM [facility] Platelet Count 541(H) 150 - 450 10e3/uL 05/20/2024 9:47 AM [facility] % Neutrophils 59 % 05/20/2024 9:47 AM [facility] % Lymphocytes 23 % 05/20/2024 9:47 AM [facility] % Monocytes 15 % 05/20/2024 9:47 AM [facility] % Eosinophils 2 % 05/20/2024 9:47 AM [facility] % Basophils 1 % 05/20/2024 9:47 AM [facility] % Immature Granulocytes 1 % 05/20/2024 9:47 AM [facility] NRBCs per 100 WBC 2(H) <1 /100 025 9:47 AM [facility] Absolute Neutrophils 9.4(H) 1.6 - 8.3 10e3/uL 05/20/2024 9:47 AM [facility] Absolute Lymphocytes 3.6 0.8 - 5.3 10e3/uL 05/20/2024 9:47 AM [facility] Absolute Monocytes 2.4(H) 0.0 - 1.3 10e3/uL 05/20/2024 9:47 AM [facility] Absolute Eosinophils 0.3 0.0 - 0.7 10e3/uL 05/20/2024 9:47 AM [facility] Absolute Basophils 0.2 0.0 - 0.2 10e3/uL 05/20/2024 9:47 AM [facility] Absolute Immature Granulocytes 0.2 <=0.4 10e3/uL 05/20/2024 9:47 AM [facility] Absolute NRBCs 0.2 10e3/uL 05/20/2024 9:47 AM [facility] Blood VENOUS LINE / Unknown Venipuncture / Unknown 05/20/2024 9:09 AM [facility] 05/20/2024 9:14 AM HVAC/R INSTRUCTOR Stiven Madsen MD LAB - BLOOD ORDERABLES Final Result Performing Organization Address [facility] de Phone Number [facility] [address] [place] [address] * (ABNORMAL) Reticulocyte count (05/20/2024 9:09 AM HVAC/R INSTRUCTOR) % Reticulocyte 25.1(H) 0.5 - 2.0 % 05/20/2024 9:19 AM [facility] Absolute Reticulocyte 0.646(H) 0.025 - 0.095 10e6/uL 05/20/2024 9:19 AM [facility] Blood VENOUS LINE / Unknown Venipuncture / Unknown 05/20/2024 9:09 AM HVAC/R INSTRUCTOR 05/20/2024 9:14 AM HVAC/R INSTRUCTOR Stiven Madsen MD LAB - BLOOD ORDERABLES Final Result Performing Organization Address [facility] de Phone Number [address] [place] [address], [facility] * (ABNORMAL) Basic metabolic panel (05/20/2024 8:21 AM [facility]) Pathologist [facility] Sodium 136 135 - 145 mmol/L 05/20/2024 8:47 AM [facility] Potassium 5.1 3.4 - 5.3 mmol/L 05/20/2024 8:47 AM [facility] Chloride 105 98 - 107 mmol/L 05/20/2024 8:47 AM [facility] Carbon Dioxide (CO2) 21(L) 22 - 29 mmol/L 05/20/2024 8:47 AM [facility] Anion Gap 10 7 - 15 mmol/L 05/20/2024 8:47 AM [facility] Urea Nitrogen 7.5 6.0 - 20.0 mg/dL 05/20/2024 8:47 AM [facility] Creatinine 0.84 0.51 - 0.95 mg/dL 05/20/2024 8:47 AM [facility] GFR Estimate >90 >60 mL/min/1.7 3m2 05/20/2024 8:47 AM [facility] Comment:eGFR calculated us2020 CKD-EPI equation. Calcium 9.1 8.8 - 10.4 mg/dL 05/20/2024 8:47 AM [facility] Comment:Reference intervals for this test were updated on 11/09/2023 to reflect our healthy population more accurately. There may be differences in the flagging of prior results with similar values performed with this method. Those prior results can be interpreted in the context of the updated reference intervals. Glucose 95 70 - 99 mg/dL 05/20/2024 8:47 AM HVAC/R INSTRUCTOR [facility] Blood VENOUS LINE / Unknown Venipuncture / Unknown 05/20/2024 8:21 AM HVAC/R INSTRUCTOR 05/20/2024 8:31 AM HVAC/R INSTRUCTOR us Stiven Madsen MD LAB - BLOOD ORDERABLES Final Result Performing Organization Address [facility]/ZIP Co de Phone Number [facility] [address] [place] [address], [facility] * ECG 12-LEAD WITH MUSE (LHE) (05/20/2024 7:36 AM HVAC/R INSTRUCTOR) Systolic Blood Pressure 111 mmHg RADIOLOGY RESULTS Diastolic Blood Pressure 56 mmHg RADIOLOGY RESULTS Ventricular Rate 86 BPM RAD IOLOGY RESULTS Atrial Rate 86 BPM RADIOLOG Y RESULTS NV Interval 154 ms RADIOLOG Y RESULTS QRS Duration 78 ms RADIOLO GY RESULTS QT 370 ms RADIOLOGY RESULTS QTc 442 ms RADIOLOGY RESULTS P Putney 18 degrees RADIOLOGY RESULTS R AXIS 55 degrees RADIOLOGY RESULTS T Putney 25 degrees RADIOLOGY RESULTS Interpretation ECG Sinus rhythm Nonspecific T wave abnormality Abnormal ECG When compared with ECG of 14-May-2024 22:12, Nonspecific T wave abnormality now evident in Inferior leads Confirmed by SEE ED PROVIDER NOTE FOR, ECG INTERPRETATION ([id number]), sound editor Neeraj Allison ([id number]) on 05/20/2024 7:48:17 AM RADIOLOGY RESULTS 05/20/2024 7:36 AM HVAC/R INSTRUCTOR 05/20/2024 7:48 AM HVAC/R INSTRUCTOR us Deshawn Arredondo MD ECG ORDERABLES Edited [...] For 1 dose $Given 05/20/2024 9:59 AM HVAC/R INSTRUCTOR 25 mg HYDROmorphone (DILAUDID) injection 2 mg 2 mg, Intravenous, EVERY HOUR, First dose on 05/20/24 at 0800, For 3 doses $Given 05/20/2024 10:58 AM HVAC/R INSTRUCTOR 2 mg $Given 05/20/2024 9:56 AM HVAC/R INSTRUCTOR 2 mg $Given 05/20/2024 8:22 AM HVAC/R INSTRUCTOR 2 mg lactated ringers infusion at 500 mL/hr, Intravenous, CONTINUOUS, Starting on 05/20/24 at 0800, Until 05/20/24 at 0959 Restarted 05/20/2024 9:30 AM HVAC/R INSTRUCTOR 500 mL/hr $New Bag 05/20/2024 8:22 AM HVAC/R INSTRUCTOR 500 mL/hr ondansetron (ZOFRAN) injection 8 mg 8 mg, Intravenous, EVERY 6 HOURS PRN, nausea, vomiting, Administer over 2-5 Minutes, Starting on 05/20/24 at 0744 $Given 05/20/2024 8:22 AM HVAC/R INSTRUCTOR 8 mg documented in this encounter Active and Recently Administered Medications Times are shown in HVAC/R INSTRUCTOR. Scheduled Medication Order 05/18/2024 05/19/2024 05/20/2024 diphenhydrAMINE [...] RN) documented in this encounter Care Teams Tip Mender Relationship Specialty Start Date End Date No Ref-Primary, Physician PCP - General 03/15/24 06/17/24 Mor Ramsey Medical Student 04/03/24 Case Samuel MD [address] [place] [address], [address] [place] [address] Assigned Pediatric Specialist Provider 05/18/24 documented as of this encounter
--- OUTSIDE RECORDS SUMMARY | 2024-06-24 20:53 | XMS_ITS | Encounter Summary ---
Author Organization [facility] Address [address] [place] [address]. [place] [address] Care Team Providers Care Order Dispatcher Chief Name Role Phone No Ref-Primary, Physician Primary Care Provider Mor Ramsey Unavailable Unavailable Reason for Visit * Reason Comments Sickle Cell Pain Crisis Encounter Details Date Type Department Care Team (Late st Contact Info) Description 05/14/2024 10:07 PM TIRE SPECIALIST - 05/15/2024 12:14 AM [facility] Emergency [facility] Emergency Room [facility] [place] [phone] Marguerite Ponce PA-C [facility] [address] [place] [id number] Sickle cell pain crisis (H) Discharge Disposition: [...] on file Legal Sex Female 8:25 AM TIRE SPECIALIST Gender Identity Not on file Sexual Orientation Not on file documented as of this encounter Last Filed Vital Signs Vital Sign Reading Time Taken Comments Blood Pressure 113/64 05/15/2024 12:03 AM TIRE SPECIALIST Pulse 97 05/15/2024 12:11 AM TIRE SPECIALIST Temperature 36.7 C (98 F) 05/14/2024 9:33 PM TIRE SPECIALIST Respiratory Rate 16 05/14/2024 9:33 PM TIRE SPECIALIST Oxygen Saturation 94% 05/15/2024 12:11 AM TIRE SPECIALIST Inhaled Oxygen Concentration - - Weight 52.2 kg (115 lb) 05/14/2024 9:33 PM TIRE SPECIALIST Height 154.9 cm (5' 1) 05/14/2024 9:33 PM TIRE SPECIALIST Body Mass Index 21.73 05/14/2024 9:33 PM TIRE SPECIALIST documented in this encounter Discharge Instructions * Discharge Instructions* Marguerite Ponce PA-C - 05/15/2024 12:02 AM TIRE SPECIALIST You were seen in the ER [...] clinic for management of your sickle cell. SPECIALIST documented in this encounter Medications at [...] questions were answered. Vitally stable upon discharge. SPECIALIST * Ana Leon RN - 05/14/2024 9:35 PM CST Reports sickle cell crisis and hurts all over Seen here yesterday for same symptoms Triage Assessment (Adult) Row Name 05/14/243 Triage Assessment Airway WDL WDL Respiratory WDL Respiratory WDL WDL Skin Circulation/Temperature WDL Skin Circulation/Temperature WDL WDL Cardiac WDL Cardiac WDL WDL Peripheral/Neurovascular WDL Peripheral Neurovascular WDL WDL Cognitive/Neuro/Behavioral WDL Cognitive/Neuro/Behavioral WDL WDL SPECIALIST * Marguerite Ponce PA-C - 05/14/2024 [...] with other provider:Did you involve another provider (splunk consultant, , pharmacy, etc.)?: No Discharge. No [...] 1,000 mL (0 mLs Intravenous Stopped 05/14/24 [id number]) HYDROmorphone (DILAUDID) injection 2 mg (2 mg [...] of 15:38 Rate: 97 BPM Rhythm: sinus [place]: 19 81 58 [place] Interval: 142 ms QRS Interval: 80 ms [...] my direction. Marguerite Ponce PA-C Emergency Medicine [facility] EMERGENCY ROOM Marguerite Ponce PA-C 05/15/24 0004 SPECIALIST documented in this encounter Plan of Treatment Not on file documented as of this encounter Goals Goal Patient Goal Type Associated Problems Recent Progress Patient-Stated? Author Pain Management General On track( 025 12:40 PM TIRE SPECIALIST) Yes Juhi Benson, SOFIA Note: Goal [...] MANUAL DIFFERENTIAL STAT 05/14/2024 1 0:24 PM TIRE SPECIALIST CBC WITH PLATELETS AND DIFFERENTIAL STAT 05/14/2024 10:24 PM TIRE SPECIALIST TROPONIN T, HIGH SENSITIVITY STAT 05/14/2024 10:24 PM TIRE SPECIALIST CBC WITH PLATELETS & DIFFERENTIAL STAT 05/14/2024 10:24 PM TIRE SPECIALIST RETICULOCYTE COUNT STAT 05/14/2024 10 :24 PM TIRE SPECIALIST HEPATIC FUNCTION PANEL STAT 05/14/2024 10:24 PM TIRE SPECIALIST HCG QUALITATIVE STAT 05/14/2024 10:24 PM TIRE SPECIALIST BASIC METABOLIC PANEL STAT 05/14/2024 10:24 PM TIRE SPECIALIST ECG 12-LEAD WITH MUSE SJN,SJO,WWH STAT 05/14/2024 10:12 PM TIRE SPECIALIST documented in this encounter Results * (ABNORMAL) Manual Differential (05/14/2024 10:24 PM TIRE SPECIALIST) % Neutrophils 63 % JARET 05/14/2024 10:58 PM TIRE SPECIALIST [facility] % Lymphocytes 29 % JARET 05/14/2024 10:58 PM TIRE SPECIALIST [facility] % Monocytes 8 % JARET 05/14/2024 10:58 PM TIRE SPECIALIST [facility] % Eosinophils 0 % JARET 05/14/2024 10:58 PM TIRE SPECIALIST [facility] % Basophils 0 % JARET 05/14/2024 10:58 PM TIRE SPECIALIST [facility] Absolute Neutrophils 11.3(H) 1.6 - 8.3 10e3/uL JARET 05/14/2024 10:58 PM [facility] Absolute Lymphocytes 5.2 0.8 - 5.3 10e3/uL JARET 05/14/2024 10:58 PM [facility] Absolute Monocytes 1.4(H) 0.0 - 1.3 10e3/uL JARET 05/14/2024 10:58 PM [facility] Absolute Eosinophils 0.0 0.0 - 0.7 10e3/uL JARET 05/14/2024 10:58 PM [facility] Absolute Basophils 0.0 0.0 - 0.2 10e3/uL JARET 05/14/2024 10:58 PM [facility] NRBCs per 100 WBC 1 % JARET 05/14/2024 10:58 PM [facility] Absolute NRBCs 0.2 10e3/uL JARET 05/14/2024 10:58 PM [facility] RBC Morphology Confirmed RBC Indices JARET 05/14/2024 10:58 PM [facility] Platelet Assessment Automated Count Confirmed. Platelet morphology is normal. Automated Count Confirmed. Platelet morphology is normal. JARET 05/14/2024 10:58 PM [facility] Acanthocytes Slight(A) None Seen JARET 05/14/2024 10:58 PM [facility] Elliptocytes Slight(A) None Seen JARET 05/14/2024 10:58 PM [facility] Polychromasia Slight(A) None Seen JARET 05/14/2024 10:58 PM [facility] Sickle Cells Moderate(A) None Seen [facility] 05/14/2024 10:58 PM [facility] Target Cells Slight(A) None Seen [facility] 05/14/2024 10:58 PM [facility] Blood BLOOD SPECIMEN / Unknown Venipuncture / Unknown 05/14/2024 10:24 PM [facility] 05/14/2024 10:30 PM [facility] us Marguerite Ponce PA-C LAB - BLOOD ORDERABLES Final R esult [facility] [address] [place] [address], [facility] * (ABNORMAL) CBC with platelets and differential (05/14/2024 10:24 PM TIRE SPECIALIST) WBC Count 17.9(H) 4.0 - 11.0 10e3/uL 05/14/2024 10:58 PM TIRE SPECIALIST [facility] RBC Count 2.32(L) 3.80 - 5.20 10e6/uL 05/14/2024 10:58 PM [facility] Hemoglobin 7.6(L) 11.7 - 15.7 g/dL 05/14/2024 10:58 PM [facility] Hematocrit 21.4(L) 35.0 - 47.0 % 05/14/2024 10:58 PM [facility] MCV 92 78 - 100 fL 05/14/2024 10:58 PM [facility] MCH 32.8 26.5 - 33.0 pg 05/14/2024 10:58 PM [facility] MCHC 35.5 31.5 - 36.5 g/dL 05/14/2024 10:58 PM [facility] RDW 24.7(H) 10.0 - 15.0 % 05/14/2024 10:58 PM [facility] Platelet Count 487(H) 150 - 450 10e3/uL 05/14/2024 10:58 PM [facility] Blood BLOOD SPECIMEN / Unknown Venipuncture / Unknown 05/14/2024 10:24 PM TIRE SPECIALIST 05/14/2024 10:30 PM TIRE SPECIALIST us Marguerite Ponce PA-C LAB - BLOOD ORDERABLES Final R esult [facility] [address] [place] [address], [facility] * HCG QUALitative (blood) (05/14/2024 10:24 PM TIRE SPECIALIST) Pathologist [facility] hCG Serum Qualitative Negative Negative JARET 05/14/2024 10:54 PM TIRE SPECIALIST [facility] Comment:This test is for scr eening purposes. Results should be interpreted along with the clinical picture. Confirmation testing is available if warranted by ordering [id number], HCG Quantitative . Blood BLOOD SPECIMEN / Unknown Venipuncture / Unknown 05/14/2024 10:24 PM TIRE SPECIALIST 05/14/2024 10:30 PM TIRE SPECIALIST Marguerite Ponce PA-C LAB - BLOOD ORDERABLES Final R esult Performing Organization Address [facility] Co de Phone Number [facility] [address] [place] [address] [place] [address], [facility] * Troponin T, High Sensitivity (05/14/2024 10:24 PM TIRE SPECIALIST) Pathologist [facility] Troponin T, High Sensitivity <6 <=14 ng/L 05/14/2024 10:53 PM TIRE SPECIALIST [facility] Comment: Either a High Sensitivity [...] Unknown Venipuncture / Unknown 05/14/2024 10:24 PM TIRE SPECIALIST 05/14/2024 10:30 PM TIRE SPECIALIST Marguerite Ponce PA-C LAB - BLOOD ORDERABLES Final R esult Performing Organization Address [facility] Co de Phone Number [facility] [address] [place] [address] [place] [address], [place] * (ABNORMAL) Reticulocyte count (05/14/2024 10:24 PM TIRE SPECIALIST) % Reticulocyte 27.5(H) 0.5 - 2.0 % 05/14/2024 10:33 PM TIRE SPECIALIST [facility] Absolute Reticulocyte 0.639(H) 0.025 - 0.095 10e6/uL 05/14/2024 10:33 PM TIRE SPECIALIST [facility] Blood BLOOD SPECIMEN / Unknown Venipuncture / Unknown 05/14/2024 10:24 PM TIRE SPECIALIST 05/14/2024 10:30 PM TIRE SPECIALIST Marguerite Ponce PA-C LAB - BLOOD ORDERABLES Final R esult Performing Organization Address City/[facility]/ZIP Co de Phone Number [facility] [address] [place] [address] Dr[address] [place], [place] [address], [facility] * (ABNORMAL) Hepatic function panel (05/14/2024 10:24 PM TIRE SPECIALIST) Protein Total 7.9 6.4 - 8.3 g/dL 05/14/2024 10:53 PM [facility] Albumin 4.4 3.5 - 5.2 g/dL 05/14/2024 10:53 PM [facility] Bilirubin Total 2.8(H) <=1.2 mg/dL 05/14/2024 10:53 PM [facility] Alkaline Phosphatase 120 40 - 150 U/L 05/14/2024 10:53 PM [facility] AST 67(H) 0 - 45 U/L 05/14/2024 10:53 PM [facility] ALT 51(H) 0 - 50 U/L 05/14/2024 10:53 PM [facility] Bilirubin Direct 0.70(H) 0.00 - 0.30 mg/dL 05/14/2024 10:53 PM [facility] Blood BLOOD SPECIMEN / Unknown Venipuncture / Unknown 05/14/2024 10:24 PM TIRE SPECIALIST 05/14/2024 10:30 PM TIRE SPECIALIST us Marguerite Ponce PA-C LAB - BLOOD ORDERABLES Final R esult Performing Organization Address City/[facility]/ZIP Co de Phone Number [address] [place] [address], [facility] * Basic metabolic panel (05/14/2024 10:24 PM TIRE SPECIALIST) Sodium 136 135 - 145 mmol/L 05/14/2024 10:53 PM [facility] Potassium 4.4 3.4 - 5.3 mmol/L 05/14/2024 10:53 PM [facility] Chloride 104 98 - 107 mmol/L 05/14/2024 10:53 PM [facility] Carbon Dioxide (CO2) 22 22 - 29 mmol/L 05/14/2024 10:53 PM [facility] Anion Gap 10 7 - 15 mmol/L 05/14/2024 10:53 PM [facility] Urea Nitrogen 10.5 6.0 - 20.0 mg/dL 05/14/2024 10:53 PM [facility] Creatinine 0.78 0.51 - 0.95 mg/dL 05/14/2024 10:53 PM [facility] GFR Estimate >90 >60 mL/min/1.7 3m2 05/14/2024 10:53 PM [facility] Comment:eGFR calculated usin 2020 CKD-EPI equation. Calcium 9.0 8.8 - 10.4 mg/dL 05/14/2024 10:53 PM [facility] Comment:Reference intervals for this test were updated on 11/09/2023 to reflect our healthy population more accurately. There may be differences in the flagging of prior results with similar values performed with this method. Those prior results can be interpreted in the context of the updated reference intervals. Glucose 88 70 - 99 mg/dL 05/14/2024 10:53 PM [facility] Blood BLOOD SPECIMEN / Unknown Venipuncture / Unknown 05/14/2024 10:24 PM TIRE SPECIALIST 05/14/2024 10:30 PM [facility] us Marguerite Ponce PA-C LAB - BLOOD ORDERABLES Final R esult [facility] [address] [place] [address], [facility] * ECG 12-LEAD WITH MUSE (LHE) (05/14/2024 10:12 PM [facility]) Systolic Blood Pressure mmHg RADIOLOGY RESULTS Diastolic Blood Pressure mmHg RADIOLOGY RESULTS Ventricular Rate 97 BPM RAD IOLOGY RESULTS Atrial Rate 97 BPM RADIOLOG Y RESULTS [place] Interval 142 ms RADIOLOG Y RESULTS QRS Duration 80 ms RADIOLO GY RESULTS QT 346 ms RADIOLOGY RESULTS QTc 439 ms RADIOLOGY RESULTS P Florence 19 degrees RADIOLOGY RESULTS R AXIS 81 degrees RADIOLOGY RESULTS T Florence 58 degrees RADIOLOGY RESULTS Interpretation ECG Sinus rhythm Nonspecific T wave abnormality Abnormal ECG When compared with ECG of 13-May-2024 15:38, No significant change was found Confirmed by SEE ED PROVIDER NOTE FOR, ECG INTERPRETATION ([id number]), telegraph editor SELMA GARRISON ([id number]) on 05/14/2024 11:09:33 PM RADIOLOGY RESULTS 05/14/2024 10:1 2 PM TIRE SPECIALIST 05/14/2024 11:09 PM TIRE SPECIALIST us Marguerite Ponce PA-C ECG ORDERABLES [...] For 1 dose $Given 05/14/2024 10:45 PM TIRE SPECIALIST 25 mg HYDROmorphone (DILAUDID) injection 2 mg 2 mg, Intravenous, ONCE, On 05/14/24 at 2200, For 1 dose $Given 05/14/2024 10:29 PM TIRE SPECIALIST 2 mg HYDROmorphone (DILAUDID) injection 2 mg 2 mg, Intravenous, ONCE, On 05/14/24 at 2330, For 1 dose $Given 05/14/2024 11:27 PM TIRE SPECIALIST 2 mg lactated ringers BOLUS 1,000 mL Intravenous, 1,000 mL, ONCE, On 05/14/24 at 2200, For 1 dose $New Bag 05/14/2024 10:29 PM TIRE SPECIALIST 1,000 mLs documented in this encounter Active and Recently Administered Medications Times are shown in TIRE SPECIALIST. Scheduled Medication Order 05/13/2024 05/14/2024 05/15/2024 [...] Provider: Obie Schofield RN)[id number] (Stopped - Provider: bOie Schofield RN) documented in this encounter Care Teams Order Dispatcher Chief Relationship Specialty Start Date End Date No Ref-Primary, Physician PCP - General 03/15/24 06/17/24 Mor Ramsey Medical Student 04/03/24 documented as of this encounter
--- OUTSIDE RECORDS SUMMARY | 2024-06-24 20:53 | XMS_ITS | Encounter Summary ---
Author Organization [facility] Address [address] [place] [address]. [place] [address] Care Team Providers Care Director Smb Sales Name Role Phone No Ref-Primary, Physician Primary Care Provider Mor Ramsey Unavailable Unavailable Case Samuel MD Unavailable [phone] Encounter Details Date Type Department Care Team [...] on file Legal Sex Female 8:25 AM VP OF PRODUCT Gender Identity Not on file Sexual Orientation Not on file documented as of this encounter Plan of Treatment Not on file documented as of this encounter Goals Goal Patient Goal Type Associated Problems Recent Progress Patient-Stated? Author Pain Management General On track( 025 12:40 PM VP OF PRODUCT) Yes Juhi Benson, RN Note: Goal Statement: [...] filedocumented in this encounter Care Teams Director Smb Sales Relationship Specialty Start Date End Date No Ref-Primary, Physician PCP - General 03/15/24 06/17/24 Mor Ramsey Medical Student 04/03/24 Case Samuel MD [address] [place] [address], [address] [place] [address] Assigned Pediatric Specialist Provider 05/18/24 documented as of this encounter
--- OUTSIDE RECORDS SUMMARY | 2024-06-24 20:53 | XMS_ITS | Encounter Summary ---
Author Organization [facility] Address [address] [place] [address] Care Team Providers Care Hide Puller Name Role Phone No Ref-Primary, Physician Primary Care Provider Mor Ramsey Unavailable Unavailable Reason for Visit * Reason Comments Sickle Cell Pain Crisis Encounter Details Date Type Department Care Team ([facility] st Contact Info) Description 05/13/2024 3:56 PM CASE FILLER - 05/13/2024 7:56 PM CASE FILLER Emergency [facility] Emergency Room [facility] [place] [address] Shaheen Unger MD [address] [place] [id number] Sickle cell pain crisis (H) Discharge Disposition: [...] on file Legal Sex Female 8:25 AM CASE FILLER Gender Identity Not on file Sexual Orientation Not on file documented as of this encounter Last Filed Vital Signs Vital Sign Reading Time Taken Comments Blood Pressure 102/66 05/13/2024 7:45 PM CASE FILLER Pulse 83 05/13/2024 7:45 PM CASE FILLER Temperature 36.9 C (98.4 F) 05/13/2024 7:45 PM CASE FILLER Respiratory Rate 29 05/13/2024 7:45 PM CASE FILLER Oxygen Saturation 97% 05/13/2024 7:29 PM CASE FILLER Inhaled Oxygen Concentration - - Weight 53.3 kg (117 lb 6.4 oz) 05/13/2024 3:33 P M CASE FILLER Height 154.9 cm (5' 1) 05/13/2024 3:33 PM CASE FILLER Body Mass Index 22.18 05/13/2024 3:33 PM CASE FILLER documented in this encounter Discharge Instructions * Discharge Instructions* Shaheen Unger MD - 05/13/2024 7:45 PM CASE FILLER Your workup in the emergency department today was reassuring. I would continue with your prescription medications and contact your service administrator determine if they would like to follow-up with you closely in clinic otherwise if you develop fevers, significantly worsening chest pain, new shortness of breath or other concerning symptom please return to the emergency department for repeat evaluation. FILLER * Attachments The following attachments cannot be sent through Care Everywhere. * Sickle Cell Crisis (Azerbaijani) documented in this encounter Medications at Time [...] with other provider:Did you involve another provider (bridal consultant, , pharmacy, etc.)?: No Discharge. No [...] was obtained from: the patient Use of Upholstered Goods Crafter: N/A Gianna Hernández is a 29 year [...] was on 05/08/2024 (5 days ago) at [facility] ED. Prescriptions for Augmentin and doxycycline sent to her listed [facility] pharmacy. 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 Recently moved to [place] from [place], [place]. She is 1 of 9 [...] Social Connections: Socially Integrated (03/28/2024) Received from [facility] Social Connections Do you often feel [...] Rate 102 BPM Atrial Rate 102 BPM WA Interval 144 ms QRS Duration 84 ms QT 322 ms QTc 419 ms P [place] 32 degrees R AXIS 59 degrees T [place] 37 degrees Interpretation ECG Sinus tachycardia Nonspecific T wave abnormality Abnormal ECG When compared with ECG of 08-May-2024 15:13, No significant change was found Confirmed by SEE ED PROVIDER NOTE FOR, ECG INTERPRETATION (4000), editor book Leticia Warner ([id number]) on 05/13/2024 4:13:45 PM RADIOLOGY: Reviewed all pertinent imaging. Please see official radiology report. No orders to display EKG: Performed at: Impression: EKG shows sinus tachycardia 102 beats a minute, normal axis, normal WA, QRS and QTc durations, no ST elevations, T wave inversions in V1 through V3 seen on prior EKGs, I have independently reviewed and interpreted the EKG(s) documented above. [facility] Documentation: [facility] Diagnoses: I, Abraham Ashby, am serving as a scribe to document services personally performed by Shaheen Unger MDbased on my observation and the provider's statements to me. I, Shaheen Unger MD, attest that Regla is acting in a scribe capacity, has observed my performance of the services and has documentedthem in accordance with my direction. Shaheen Unger MD [facility] EMERGENCY ROOM [address] [facility] [address] Shaheen Unger MD 05/13/24 [id number] FILLER * Jennifer Scherer RN - 05/13/2024 3:36 [...] ECG obtained Cognitive/Neuro/Behavioral WDL Cognitive/Neuro/Behavioral WDL WDL FILLER documented in this encounter Plan of Treatment Not on file documented as of this encounter Goals Goal Patient Goal Type Associated Problems Recent Progress Patient-Stated? Author Pain Management General On track( 025 12:40 PM CASE FILLER) Yes Juhi Benson, RN Note: Goal Statement: [...] Comments EXTRA TUBE STAT 05/13/2024 6:17 PM CASE FILLER EXTRA PURPLE TOP TUBE STAT 05/13/2024 6:17 PM CASE FILLER LACTATE DEHYDROGENASE STAT 05/13/2024 6:16 PM CASE FILLER MANUAL DIFFERENTIAL STAT 05/13/2024 4 :57 PM CASE FILLER CBC WITH PLATELETS AND DIFFERENTIAL STAT 05/13/2024 4:57 PM CASE FILLER TROPONIN T, HIGH SENSITIVITY STAT 05/13/2024 4:57 PM CASE FILLER CBC WITH PLATELETS & DIFFERENTIAL STAT 05/13/2024 4:57 PM CASE FILLER RETICULOCYTE COUNT STAT 05/13/2024 4: 57 PM CASE FILLER HEPATIC FUNCTION PANEL STAT 4:57 PM CASE FILLER BASIC METABOLIC PANEL STAT 05/13/2024 4:57 PM CASE FILLER ECG 12-LEAD WITH MUSE [facility] STAT 05/13/2024 3:38 PM CASE FILLER documented in this encounter Results * Extra Purple Top Tube (05/13/2024 6:17 PM CASE FILLER) Pathologist [facility] Emergency Department Hold Specimen JI 05/13/2024 7:31 PM CASE FILLER [facility] Blood STRUCTURE OF RIGHT UPPER LIMB / Unknown Venipuncture / Unknown 05/13/2024 6:17 PM CASE FILLER 05/13/2024 6:23 PM CASE FILLER us Shaheen Unger MD LAB - BLOOD ORDERABLES Final Res ult Performing Organization Address [facility] Co de Phone Number [facility] [address] [facility] [place] [address], [facility] * (ABNORMAL) Lactate Dehydrogenase (05/13/2024 6:16 PM CASE FILLER) [facility] Lactate Dehydrogenase 514(H) 0 - 250 U/L 05/13/2024 6:42 PM CASE FILLER [facility] Blood STRUCTURE OF RIGHT UPPER LIMB / Unknown Venipuncture / Unknown 05/13/2024 6:16 PM CASE FILLER 05/13/2024 6:23 PM CASE FILLER us Shaheen Unger MD LAB - BLOOD ORDERABLES Final Res ult Performing Organization Address City/[facility]/ZIP Co de Phone Number [facility] [address] [facility] [place] [address], [facility] * (ABNORMAL) Manual Differential (05/13/2024 4:57 PM CASE FILLER) % Neutrophils 63 % JARET 05/13/2024 5:54 PM [facility] % Lymphocytes 25 % JARET 05/13/2024 5:54 PM [facility] % Monocytes 11 % JARET 05/13/2024 5:54 PM [facility] % Eosinophils 1 % JARET 05/13/2024 5:54 PM [facility] % Basophils 0 % JARET 05/13/2024 5:54 PM [facility] Absolute Neutrophils 11.0(H) 1.6 - 8.3 10e3/uL JARET 05/13/2024 5:54 PM [facility] Absolute Lymphocytes 4.4 0.8 - 5.3 10e3/uL JARET 05/13/2024 5:54 PM [facility] Absolute Monocytes 1.9(H) 0.0 - 1.3 10e3/uL JARET 05/13/2024 5:54 PM [facility] Absolute Eosinophils 0.2 0.0 - 0.7 10e3/uL JARET 05/13/2024 5:54 PM [facility] Absolute Basophils 0.0 0.0 - 0.2 10e3/uL JARET 05/13/2024 5:54 PM [facility] RBC Morphology Confirmed RBC Indices JARET 05/13/2024 5:54 PM [facility] Platelet Assessment Automated Count Confirmed. Platelet morphology is normal. Automated Count Confirmed. Platelet morphology is normal. JARET 05/13/2024 5:54 PM [facility] Acanthocytes Slight(A) None Seen JARET 05/13/2024 5:54 PM [facility] Elliptocytes Slight(A) None Seen JARET 05/13/2024 5:54 PM [facility] Polychromasia Slight(A) None Seen JARET 05/13/2024 5:54 PM [facility] Sickle Cells Moderate(A) None Seen JARET 05/13/2024 5:54 PM [facility] Target Cells Slight(A) None Seen JARET 05/13/2024 5:54 PM [facility] Blood VENOUS LINE / Unknown Venipuncture / Unknown 05/13/2024 4:57 PM CASE FILLER 05/13/2024 5:09 PM CASE FILLER Shaheen Unger MD LAB - BLOOD ORDERABLES Final Res ult [facility] [address] [facility] [place] [address], [facility] * (ABNORMAL) CBC with platelets and differential (05/13/2024 4:57 PM CASE FILLER) [facility] WBC Count 17.4(H) 4.0 - 11.0 10e3/uL 05/13/2024 5:54 PM [facility] RBC Count 2.16(L) 3.80 - 5.20 10e6/uL 05/13/2024 5:54 PM [facility] Hemoglobin 7.1(L) 11.7 - 15.7 g/dL 05/13/2024 5:54 PM [facility] Hematocrit 19.9(L) 35.0 - 47.0 % 05/13/2024 5:54 PM [facility] MCV 92 78 - 100 fL 05/13/2024 5:54 PM [facility] MCH 32.9 26.5 - 33.0 pg 05/13/2024 5:54 PM [facility] MCHC 35.7 31.5 - 36.5 g/dL 05/13/2024 5:54 PM [facility] RDW 24.5(H) 10.0 - 15.0 % 05/13/2024 5:54 PM [facility] Platelet Count 459(H) 150 - 450 10e3/uL 05/13/2024 5:54 PM [facility] Blood VENOUS LINE / Unknown Venipuncture / Unknown 05/13/2024 4:57 PM CASE FILLER 05/13/2024 5:09 PM CASE FILLER Shaheen Unger MD LAB - BLOOD ORDERABLES Final Res ult [facility] [address] [place] [address], [place] * Troponin T, High Sensitivity (05/13/2024 4:57 PM CASE FILLER) Pathologist [facility] Department Troponin T, High Sensitivity <6 <=14 ng/L 05/13/2024 5:31 PM CASE FILLER [facility] Comment: Either a High Sensitivity [...] Unknown Venipuncture / Unknown 05/13/2024 4:57 PM CASE FILLER 05/13/2024 5:09 PM CASE FILLER us Shaheen Unger MD LAB - BLOOD ORDERABLES Final Res ult [facility] [address] [facility] [place], [place] [address] * (ABNORMAL) Reticulocyte count (05/13/2024 4:57 PM CASE FILLER) Pathologist [facility] % Reticulocyte 25.9(H) 0.5 - 2.0 % 05/13/2024 5:33 PM CASE FILLER [facility] Absolute Reticulocyte 0.566(H) 0.025 - 0.095 10e6/uL 05/13/2024 5:33 PM CASE FILLER [facility] Blood VENOUS LINE / Unknown Venipuncture / Unknown 05/13/2024 4:57 PM CASE FILLER 05/13/2024 5:09 PM CASE FILLER us Shaheen Unger MD LAB - BLOOD ORDERABLES Final Res ult [facility] [address] [facility] [place] [address], [facility] * (ABNORMAL) Hepatic function panel (05/13/2024 4:57 PM CASE FILLER) [facility] Protein Total 7.4 6.4 - 8.3 g/dL 05/13/2024 5:38 PM [facility] Albumin 4.1 3.5 - 5.2 g/dL 05/13/2024 5:38 PM [facility] Bilirubin Total 2.4(H) <=1.2 mg/dL 05/13/2024 5:38 PM [facility] Alkaline Phosphatase 111 40 - 150 U/L 05/13/2024 5:38 PM [facility] AST 64(H) 0 - 45 U/L 05/13/2024 5:38 PM [facility] ALT 36 0 - 50 U/L 05/13/2024 5:38 PM [facility] Bilirubin Direct 05/13/19 25 5:38 PM [facility] Comment:Unsatisfactory speci men - hemolyzed Blood VENOUS LINE / Unknown Venipuncture / Unknown 05/13/2024 4:57 PM CASE FILLER 05/13/2024 5:09 PM [facility] Shaheen Unger MD LAB - BLOOD ORDERABLES Final Res ult Performing Organization Address [facility]/State/ZIP Co de Phone Number [facility] [address] [place] [address] [place] [address], [facility] * (ABNORMAL) Basic metabolic panel (05/13/2024 4:57 PM CASE FILLER) [facility] Sodium 136 135 - 145 mmol/L 05/13/2024 5:31 PM [facility] Potassium 4.8 3.4 - 5.3 mmol/L 05/13/2024 5:31 PM [facility] Chloride 104 98 - 107 mmol/L 05/13/2024 5:31 PM [facility] Carbon Dioxide (CO2) 19(L) 22 - 29 mmol/L 05/13/2024 5:31 PM [facility] Anion Gap 13 7 - 15 mmol/L 05/13/2024 5:31 PM CASE FILLER [facility] Urea Nitrogen 9.1 6.0 - 20.0 mg/dL 05/13/2024 5:31 PM [facility] Creatinine 0.69 0.51 - 0.95 mg/dL 05/13/2024 5:31 PM [facility] GFR Estimate >90 >60 mL/min/1.7 3m2 05/13/2024 5:31 PM [facility] Comment:eGFR calculated usin g 2020 CKD-EPI equation. Calcium 8.3(L) 8.8 - 10.4 mg/dL 05/13/2024 5:31 PM [facility] Comment:Reference intervals for this test were updated on 11/09/2023 to reflect our healthy population more accurately. There may be differences in the flagging of prior results with similar values performed with this method. Those prior results can be interpreted in the context of the updated reference intervals. Glucose 103(H) 70 - 99 mg/dL 05/13/2024 5:31 PM [facility] Blood VENOUS LINE / Unknown Venipuncture / Unknown 05/13/2024 4:57 PM CASE FILLER 05/13/2024 5:09 PM CASE FILLER us Shaheen Unger MD LAB - BLOOD ORDERABLES Final Res ult [facility] [address] [facility] [place] [address], [facility] * ECG 12-LEAD WITH MUSE (LHE) (05/13/2024 3:38 PM CASE FILLER) Systolic Blood Pressure mmHg RADIOLOGY RESULTS Diastolic Blood Pressure mmHg RADIOLOGY RESULTS Ventricular Rate 102 BPM RAD IOLOGY RESULTS Atrial Rate 102 BPM RADIOLOG Y RESULTS WA Interval 144 ms RADIOLOG Y RESULTS QRS Duration 84 ms RADIOLO GY RESULTS QT 322 ms RADIOLOGY RESULTS QTc 419 ms RADIOLOGY RESULTS P [place] 32 degrees RADIOLOGY RESULTS R AXIS 59 degrees RADIOLOGY RESULTS T [place] 37 degrees RADIOLOGY RESULTS Interpretation ECG Sinus tachycardia Nonspecific T wave abnormality Abnormal ECG When compared with ECG of 08-May-2024 15:13, No significant change was found Confirmed by SEE ED PROVIDER NOTE FOR, ECG INTERPRETATION (4000), editor book Leticia Warner ([id number]) on 05/13/2024 4:13:45 PM RADIOLOGY RESULTS 05/13/2024 3:38 PM CASE FILLER 05/13/2024 4:13 PM CASE FILLER Shaheen Unger MD ECG ORDERABLES Edited Result [...] For 1 dose $Given 05/13/2024 5:38 PM CASE FILLER 25 mg diphenhydrAMINE (BENADRYL) injection 25 mg 25 mg, Intravenous, ONCE, On 05/13/24 at 1900, For 1 dose $Given 05/13/2024 7:05 PM CASE FILLER 25 mg HYDROmorphone (DILAUDID) injection 1 mg 1 mg, Intravenous, EVERY 1 HOUR PRN, moderate pain, severe pain, Starting on 05/13/24 at 1610, For 1 dose, Notify the provider to assess for uncontrolled pain or analgesic side effects. Hold while on IV TELECOMMUNICATIONS TECHNICIAN or with regular IV opioid dosing. $Given 05/13/2024 4:58 PM CASE FILLER 1 mg HYDROmorphone (DILAUDID) injection 1 mg 1 mg, Intravenous, ONCE, On 05/13/24 at 1800, For 1 dose $Given 05/13/2024 6:00 PM CASE FILLER 1 mg HYDROmorphone (DILAUDID) injection 1 mg 1 mg, Intravenous, ONCE, On 05/13/24 at 1930, For 1 dose $Given 05/13/2024 7:28 PM CASE FILLER 1 mg lactated ringers BOLUS 1,000 mL Intravenous, 1,000 mL, ONCE, at 500 mL/hr, Administer over 2 Hours, On 05/13/24 at 1630, For 1 dose $New Bag 05/13/2024 5:01 PM CASE FILLER 1,000 mLs 500 mL/hr documented in this encounter Active and Recently Administered Medications Times are shown in CASE FILLER. Scheduled Medication Order 05/11/2024 05/12/202405/13/2024 diphenhydrAMINE (BENADRYL) [...] analgesic side effects. Hold while on IV TELECOMMUNICATIONS TECHNICIAN or with regular IV opioid dosing. 1658 ($Given - Provi nas: Cherrie Garcia RN) documented in this encounter Care Teams Hide Puller Relationship Specialty Start Date End Date No Ref-Primary, Physician PCP - General 03/15/24 06/17/24 Mor Ramsey Medical Student 04/03/24 documented as of this encounter
--- OUTSIDE RECORDS SUMMARY | 2024-06-24 20:53 | XMS_ITS | Encounter Summary ---
Author Organization [facility] Address [address] [place] [address]. [place] [address] Care Team Providers Care General Production Laborer Name Role Phone No Ref-Primary, Physician Primary Care Provider Mor Ramsey Unavailable Unavailable Case Samuel MD Unavailable [phone] Encounter Details Date Type Department Care Team (Late st Contact Info) Description 05/22/2024 MyC Medical Advice [facility] Interventional Radiology [address] [place] [address] Yadi Mahan, RN Social History [...] on file Legal Sex Female 8:25 AM TITLE SEARCH MANAGER Gender Identity Not on file Sexual Orientation Not on file documented as of this encounter Plan of Treatment Not on file documented as of this encounter Goals Goal Patient Goal Type Associated Problems Recent Progress Patient-Stated? Author Pain Management General On track( 025 12:40 PM TITLE SEARCH MANAGER) Yes Juhi Benson, SOFIA Note: Goal [...] on filedocumented in this encounter Care Teams General Production Laborer Relationship Specialty Start Date End Date No Ref-Primary, Physician PCP - General 03/15/24 06/17/24 Mor Ramsey Medical Student 04/03/24 Case Samuel MD [address] [place] [address] 484, [address] [place] [address] Assigned Pediatric Specialist Provider 05/18/24 documented as of this encounter
--- OUTSIDE RECORDS SUMMARY | 2024-06-24 20:53 | XMS_ITS | Encounter Summary ---
Author Organization [place] Address [address] [place] [address]. [place] [address] Care Team Providers Care Apple Turner Name Role Phone No Ref-Primary, Physician Primary Care Provider Mor Ramsey Unavailable Unavailable Case Samuel MD Unavailable [phone] Reason for Visit * Reason Comments Chest Pain Sickle Cell Pain Crisis Encounter Details Date Type Department Care Team (Late st Contact Info) Description 05/22/2024 3:27 PM DUCK OPERATOR - 05/22/2024 6:55 PM DUCK OPERATOR Emergency [facility] Emergency Room [facility] [place] [address] Bernabe Farley MD [facility] [address] [place] [id number] Sickle cell pain crisis (H) Discharge Disposition: [...] on file Legal Sex Female 8:25 AM DUCK OPERATOR Gender Identity Not on file Sexual Orientation Not on file documented as of this encounter Last Filed Vital Signs Vital Sign [place] Time Taken Comments Blood Pressure 111/59 05/22/2024 6:53 PM DUCK OPERATOR Pulse 106 05/22/2024 6:52 PM DUCK OPERATOR Temperature 36.7 C (98.1 F) 05/22/2024 3:11 PM DUCK OPERATOR Respiratory Rate 20 05/22/2024 3:11 PM DUCK OPERATOR Oxygen Saturation 95% 05/22/2024 6:52 PM DUCK OPERATOR Inhaled Oxygen Concentration - - Weight 51.7 kg (114 lb) 05/22/2024 3:11 PM DUCK OPERATOR Height 154.9 cm (5' 1) 05/22/2024 3:11 PM DUCK OPERATOR Body Mass Index 21.54 05/22/2024 3:11 PM DUCK OPERATOR documented in this encounter Discharge Instructions * Attachments The following attachments cannot be sent through Care Everywhere. * Sickle Cell Crisis (Mexican) documented in this encounter Medications at Time [...] RN - 05/22/2024 6:29 PM CST Bed: [facility] Expected date: Expected time: Means of arrival: Comments: Crash OPERATOR * Bernabe Farley MD - 05/22/2024 3:27 [...] April. Today will be the 16th visit. 1036 Patient is a 29-year-old woman with history [...] and Inpatient Record: Patient was seen at [facility] ED on 05/20/23 Care impacted by chronic [...] Per chart review, patient was seen at [facility] ED on 05/20/24 for sickle cell pain [...] She has seen the oncologist at the [facility] and has future follow-up appointments [...] my direction. Bernabe Farley M.D. Emergency Medicine [facility] EMERGENCY ROOM [address] [facility] [id number] Dept: [phone] Bernabe Farley MD 05/22/246 OPERATOR * Sanjay Purdy RN - 05/22/2024 3:10 [...] Management General On track( 025 12:40 PM DUCK OPERATOR) Yes Juhi Benson, SOFIA Note: Goal [...] CHEST 2 VIEWS STAT 05/22/2024 5:19 PM DUCK OPERATOR RBC AND PLATELET MORPHOLOGY STAT 05/22/2024 3:51 PM DUCK OPERATOR CBC WITH PLATELETS AND DIFFERENTIAL STAT 05/22/2024 3:51 PM DUCK OPERATOR CBC WITH PLATELETS & DIFFERENTIAL STAT 05/22/2024 3:51 PM DUCK OPERATOR BASIC METABOLIC PANEL STAT 05/22/2024 3:51 PM DUCK OPERATOR ECG 12-LEAD WITH MUSE [facility],SJO,WWH STAT 05/22/2024 3:14 PM DUCK OPERATOR documented in this encounter Results * Chest XR, PA & LAT (05/22/2024 5:19 PM DUCK OPERATOR) Anatomical Region Laterality Modality Chest Digital Radiogra phy 05/22/2024 5:19 PM DUCK OPERATOR Impressions 05/22/2024 5:42 PM DUCK OPERATOR IMPRESSION: Unchanged ill-defined hazy opacities in the peripheral right lung, which may correspond with nodular opacities seen on CT chest dated 05/04/2024. No new focal airspace disease. No pleural effusion or pneumothorax. The cardiomediastinal silhouette is unremarkable. Narrative 05/22/2024 5:42 PM DUCK OPERATOR EXAM: XR CHEST 2 VIEWS LOCATION: [facility] DATE: 05/22/2024 INDICATION: L chest pain, concern for acute chest syndome COMPARISON: 05/20/2024, CT chest 05/04/2024 Procedure Note Robert Marks MD - 05/22/2024 EXAM: XR CHEST 2 VIEWS LOCATION: [facility] DATE: 05/22/2024 INDICATION: L chest pain, concern for acute chest syndome COMPARISON: 05/20/2024, CT chest 05/04/2024 IMPRESSION: Unchanged ill-defined hazy opacities in the peripheral right lung, whichmay correspond with nodular opacities seen on CT chest dated 05/04/2024. No new focal airspace disease. No pleural effusion or pneumothorax. The cardiomediastinal silhouette is unremarkable. us Bernabe Farley MD [facility] ORDERA BLES Final Result * (ABNORMAL) RBC and Platelet Morphology (05/22/2024 3:51 PM DUCK OPERATOR) [facility] RBC Morphology Confirmed RBC Indices 05/22/2024 4:30 PM DUCK OPERATOR [facility] Platelet Assessment Automated Count Confirmed. Giant platelets are present.(A) Automated Count Confirmed. Platelet morphology is normal. JARET 05/22/2024 4:30 PM DUCK OPERATOR [facility] Giant Platelets Slight(A) None Seen [facility] 05/22/2024 4:30 PM DUCK OPERATOR [facility] Elliptocytes Slight(A) None Seen JARET 05/22/2024 4:30 PM DUCK OPERATOR [facility] [place] Bodies Present(A) None Seen [facility] 05/22/2024 4:30 PM DUCK OPERATOR [facility] Polychromasia Slight(A) None Seen JARET 05/22/2024 4:30 PM DUCK OPERATOR [facility] RBC Fragments Slight(A) None Seen [facility] 05/22/2024 4:30 PM DUCK OPERATOR [facility] Sickle Cells Moderate(A) None Seen [facility] 05/22/2024 4:30 PM DUCK OPERATOR [facility] Target Cells Slight(A) None Seen [facility] 05/22/2024 4:30 PM [facility] Blood VENOUS LINE / Unknown Venipuncture / Unknown 05/22/2024 3:51 PM DUCK OPERATOR 05/22/2024 3:54 PM DUCK OPERATOR us Bernabe Farley MD LAB - BLOOD ORDERABLES Final Result [facility] [address] [place] [address], [place] * (ABNORMAL) CBC with platelets and differential (05/22/2024 3:51 PM DUCK OPERATOR) WBC Count 14.5(H) 4.0 - 11.0 10e3/uL 05/22/2024 4:30 PM [facility] RBC Count 2.59(L) 3.80 - 5.20 10e6/uL 05/22/2024 4:30 PM [facility] Hemoglobin 8.2(L) 11.7 - 15.7 g/dL 05/22/2024 4:30 PM [facility] Hematocrit 23.4(L) 35.0 - 47.0 % 05/22/2024 4:30 PM [facility] MCV 90 78 - 100 fL 05/22/2024 4:30 PM [facility] MCH 31.7 26.5 - 33.0 pg 05/22/2024 4:30 PM [facility] MCHC 35.0 31.5 - 36.5 g/dL 05/22/2024 4:30 PM [facility] RDW 22.9(H) 10.0 - 15.0 % 05/22/2024 4:30 PM [facility] Platelet Count 552(H) 150 - 450 10e3/uL 05/22/2024 4:30 PM [facility] % Neutrophils 53 % 05/22/2024 4:30 PM [facility] % Lymphocytes 30 % 05/22/2024 4:30 PM [facility] % Monocytes 14 % 05/22/2024 4:30 PM [facility] % Eosinophils 1 % 05/22/2024 4:30 PM [facility] % Basophils 1 % 05/22/2024 4:30 PM [facility] % Immature Granulocytes 1 % 05/22/2024 4:30 PM [facility] NRBCs per 100 WBC 2(H) <1 /100 025 4:30 PM [facility] Absolute Neutrophils 7.7 1.6 - 8.3 10e3/uL 05/22/2024 4:30 PM [facility] Absolute Lymphocytes 4.3 0.8 - 5.3 10e3/uL 05/22/2024 4:30 PM [facility] Absolute Monocytes 2.0(H) 0.0 - 1.3 10e3/uL 05/22/2024 4:30 PM [facility] Absolute Eosinophils 0.1 0.0 - 0.7 10e3/uL 05/22/2024 4:30 PM [facility] Absolute Basophils 0.2 0.0 - 0.2 10e3/uL 05/22/2024 4:30 PM [facility] Absolute Immature Granulocytes 0.2 <=0.4 10e3/uL 05/22/2024 4:30 PM [facility] Absolute NRBCs 0.3 10e3/uL 05/22/2024 4:30 PM [facility] Blood VENOUS LINE / Unknown Venipuncture / Unknown 05/22/2024 3:51 PM DUCK OPERATOR 05/22/2024 3:54 PM [facility] us Bernabe Farley MD LAB - BLOOD ORDERABLES Final Result [facility] [address] [place], [place] [address] * (ABNORMAL) Basic metabolic panel (05/22/2024 3:51 PM DUCK OPERATOR) Sodium 138 135 - 145 mmol/L 05/22/2024 4:12 PM [facility] Potassium 4.8 3.4 - 5.3 mmol/L 05/22/2024 4:12 PM [facility] Chloride 107 98 - 107 mmol/L 05/22/2024 4:12 PM [facility] Carbon Dioxide (CO2) 20(L) 22 - 29 mmol/L 05/22/2024 4:12 PM [facility] Anion Gap 11 7 - 15 mmol/L 05/22/2024 4:12 PM [facility] Urea Nitrogen 9.9 6.0 - 20.0 mg/dL 05/22/2024 4:12 PM [facility] Creatinine 0.91 0.51 - 0.95 mg/dL 05/22/2024 4:12 PM [facility] GFR Estimate 87 >60 mL/min/1.7 3m2 05/22/2024 4:12 PM [facility] Comment:eGFR calculated usin 2020 CKD-EPI equation. Calcium 9.6 8.8 - 10.4 mg/dL 05/22/2024 4:12 PM DUCK OPERATOR [facility] Comment:Reference intervals for this test were updated on 11/09/2023 to reflect our healthy population more accurately. There may be differences in the flagging of prior results with similar values performed with this method. Those prior results can be interpreted in the context of the updated reference intervals. Glucose 100(H) 70 - 99 mg/dL 05/22/2024 4:12 PM DUCK OPERATOR [facility] Blood VENOUS LINE / Unknown Venipuncture / Unknown 05/22/2024 3:51 PM DUCK OPERATOR 05/22/2024 3:54 PM DUCK OPERATOR us Bernabe Farley MD LAB - BLOOD ORDERABLES Final Result Performing Organization Address City/[facility]/ZIP Co de Phone Number [facility] [address] * ECG 12-LEAD WITH MUSE (LHE) (05/22/2024 3:14 PM DUCK OPERATOR) Systolic Blood Pressure mmHg RADIOLOGY RESULTS Diastolic Blood Pressure mmHg RADIOLOGY RESULTS Ventricular Rate 103 BPM RAD IOLOGY RESULTS Atrial Rate 103 BPM RADIOLOG Y RESULTS SC Interval 124 ms RADIOLOG Y RESULTS QRS Duration 80 ms RADIOLO GY RESULTS QT 316 ms RADIOLOGY RESULTS QTc 413 ms RADIOLOGY RESULTS P [place] 82 degrees RADIOLOGY RESULTS R AXIS 90 degrees RADIOLOGY RESULTS T [place] 70 degrees RADIOLOGY RESULTS Interpretation ECG Sinus tachycardia Rightward axis Borderline ECG When compared with ECG of 20-May-2024 07:36, Nonspecific T wave abnormality no longer evident in Anterior leads Confirmed by SEE ED PROVIDER NOTE FOR, ECG INTERPRETATION (4000), makeup editor Leticia Warner ([id number]) on 05/22/2024 4:13:58 PM RADIOLOGY RESULTS 05/22/2024 3:14 PM DUCK OPERATOR 05/22/2024 4:13 PM DUCK OPERATOR us Bernabe Farley MD ECG ORDERABLES Edited Result - Final Performing Organization Address City/[facility]/ZIP Co de Phone Number RADIOLOGY RESULTS [...] For 1 dose $Given 05/22/2024 4:00 PM DUCK OPERATOR 25 mg HYDROmorphone (DILAUDID) injection 2 mg 2 mg, Intravenous, EVERY 1 HOUR PRN, severe pain, Starting on Wed05/22/24 at 1537, For 3 doses $Given 05/22/2024 6:39 PM DUCK OPERATOR 2 mg $Given 05/22/2024 5:33 PM DUCK OPERATOR 2 mg $Given 05/22/2024 4:00 PM DUCK OPERATOR 2 mg lactated ringers BOLUS 500 mL Intravenous, 500 mL, ONCE, On Wed05/22/24 at 1600, For 1 dose $New Bag 05/22/2024 4:13 PM DUCK OPERATOR 500 mLs ondansetron (ZOFRAN) injection 4 mg 4 mg, Intravenous, ONCE, Administer over 2-5 Minutes, On Wed05/22/24 at 1600, For 1 dose $Given 05/22/2024 4:00 PM DUCK OPERATOR 4 mg documented in this encounter Active and Recently Administered Medications Times are shown in DUCK OPERATOR. Scheduled Medication Order 05/20/2024 05/21/2024 05/22/2024 diphenhydrAMINE [...] SOFIA) documented in this encounter Care Teams Apple Turner Relationship Specialty Start Date End Date No Ref-Primary, Physician PCP - General 03/15/24 06/17/24 Elvira Ramseyc Medical Student 04/03/24 Case Samuel MD [address] [place] [address], [address] [place] [address] Assigned Pediatric Specialist Provider 05/18/24 documented as of this encounter
--- OUTSIDE RECORDS SUMMARY | 2024-06-24 20:54 | XMS_ITS | Encounter Summary ---
Author Organization [facility] Address [address] [place] [address]. [place] [address] Care Team Providers Care Telephone Solicitor Name Role Phone No Ref-Primary, Physician Primary Care Provider Mor Ramsey Unavailable Unavailable Case Samuel MD Unavailable [phone] Juhi Benson RN Unavailable Unavailable Encounter Details [...] on file Legal Sex Female 8:25 AM RETINA SUBSPECIALIST Gender Identity Not on file Sexual Orientation Not on file documented as of this encounter Plan of Treatment Not on file documented as of this encounter Goals Goal Patient Goal Type Associated Problems Recent Progress Patient-Stated? Author Pain Management General On track( 025 12:40 PM RETINA SUBSPECIALIST) Yes Juhi Benson RN Note: Goal Statement: [...] on filedocumented in this encounter Care Teams Telephone Solicitor Relationship Specialty Start Date End Date No Ref-Primary, Physician PCP - General 03/15/24 06/17/24 Mor Ramsey Medical Student 04/03/24 Case Samuel MD [address] [place] [address] [address], [address] [place] [address] Assigned Pediatric Specialist Provider 05/18/24 Juhi Benson RN Specialty Rubber Tile Floor Layer Hematology & Oncology 05/29/24 documented as of this encounter
--- OUTSIDE RECORDS SUMMARY | 2024-06-24 20:54 | XMS_ITS | Encounter Summary ---
Author Organization [facility] Address [address] [place] [address]. [place] [address] Care Team Providers Care Rope Tier Name Role Phone No Ref-Primary, Physician Primary Care Provider Mor Ramsey Unavailable Unavailable Case Samuel MD Unavailable [phone] Encounter Details Date Type Department Care Team [...] on file Legal Sex Female 8:25 AM SAUSAGE STRINGER Gender Identity Not on file Sexual Orientation Not on file documented as of this encounter Plan of Treatment Not on file documented as of this encounter Goals Goal Patient Goal Type Associated Problems Recent Progress Patient-Stated? Author Pain Management General On track( 025 12:40 PM SAUSAGE STRINGER) Yes Juhi Benson, RN Note: Goal Statement: [...] filedocumented in this encounter Care Teams Rope Tier Relationship Specialty Start Date End Date No Ref-Primary, Physician PCP - General 03/15/24 06/17/24 Mor Ramsey Medical Student 04/03/24 Case Samuel MD [address] [place] [address], [address] [place] [address] Assigned Pediatric Specialist Provider 05/18/24 documented as of this encounter
--- OUTSIDE RECORDS SUMMARY | 2024-06-24 20:54 | XMS_ITS | Encounter Summary ---
Author Organization [facility] Address [address] [place] [address]. [place] [address] Care Team Providers Care Porcelain Enameler Name Role Phone No Ref-Primary, Physician Primary Care Provider Mor Ramsey Unavailable Unavailable Case Samuel MD Unavailable [phone] Juhi Benson RN Unavailable Unavailable Encounter Details [...] on file Legal Sex Female 8:25 AM MELT HOUSE CENTRIFUGAL OPERATOR Gender Identity Not on file Sexual Orientation Not on file documented as of this encounter Plan of Treatment Not on file documented as of this encounter Goals Goal Patient Goal Type Associated Problems Recent Progress Patient-Stated? Author Pain Management General On track( 025 12:40 PM MELT HOUSE CENTRIFUGAL OPERATOR) Yes Juhi Benson RN Note: Goal Statement: [...] on filedocumented in this encounter Care Teams Porcelain Enameler Relationship Specialty Start Date End Date No Ref-Primary, Physician PCP - General 03/15/24 06/17/24 Mor Ramsey Medical Student 04/03/24 Case Samuel MD [address] [place] [address] [address], [address] [place] [address] Assigned Pediatric Specialist Provider 05/18/24 Juhi Benson RN Specialty Anesthesiology Crna Hematology & Oncology 05/29/24 documented as of this encounter
--- OUTSIDE RECORDS SUMMARY | 2024-06-24 20:54 | XMS_ITS | Encounter Summary ---
Author Organization [facility] [place] Address [address] [place] [address]. [place] [address] Care Team Providers Care Microbiology Instructor Name Role Phone No Ref-Primary, Physician Primary Care Provider Mor Ramsey Unavailable Unavailable Case Samuel MD Unavailable [phone] Juhi Benson RN Unavailable Unavailable Reason for Visit * Reason Onset Date Comments Refill Request 06/05/2024 Encounter Details Date Type Department Care Team (Late st Contact Info) Description 06/05/2024 MyC Refill [facility] [address] [place] [address] Case Samuel MD [address] [place] [address], [address] [place] [address] Refill Request Social History Tobacco [...] on file Legal Sex Female 8:25 AM EMPLOYEE RELATIONS ASSISTANT Gender Identity Not on file Sexual [...] fill date and by whom: Dr. Samuel CORE DRILL OPERATOR Reviewed: Yes Send to provider: Routed to dr. Samuel and ESTEVAN Reynaga OYEE RELATIONS ASSISTANT documented in this encounter Plan of Treatment Not on file documented as of this encounter Goals Goal Patient Goal Type Associated Problems Recent Progress Patient-Stated? Author Pain Management General On track( 025 12:40 PM EMPLOYEE RELATIONS ASSISTANT) Yes Juhi Benson, SOFIA Note: Goal [...] crisis documented in this encounter Care Teams Microbiology Instructor Relationship Specialty Start Date End Date No Ref-Primary, Physician PCP - General 03/15/24 06/17/24 Mor Ramsey Medical Student 04/03/24 Case Samuel MD [address] [place] [address] 484, [address] [place] [address] Assigned Pediatric Specialist Provider 05/18/24 Juhi Benson, SOFIA Specialty Interventional Radiology Rn Hematology & Oncology 05/29/24 documented as of this encounter
--- OUTSIDE RECORDS SUMMARY | 2024-06-24 20:54 | XMS_ITS | Encounter Summary ---
Author Organization [place] Address [facility] [place] [address] Care Team Providers Care Punch Press Setter Name Role Phone No Ref-Primary, Physician Primary Care Provider Mor Ramsey Unavailable Unavailable Case Samuel MD Unavailable [phone] Juhi Benson RN Unavailable Unavailable Reason for Referral * Mental Health Outpatient (Urgent: 3-5 Days) - Pending Review Specialty Diagnoses / Procedures Referred By Contac t Referred To Contact Behavioral Health Diagnoses Severe episode of recurrent major depressive disorder, without psychotic features (H) Case Samuel MD [address] [place] [address] Phone: tel: fax: Referral ID Status Reason Start Date Expiration Date V isits Requested Visits Authorized [id number] Pending Review 05/29/2024 05/29/2025 1 1 Question Answer Services: Assess/Evaluate for appropriate service (non-medication assessment) My Clinical Question Is: History of chronic pain with depression as major component combined with sickle cell disease and difficulty adjusting to [place]. Requesting evaluation for mental health diagnosis and management. Patient Scheduling Instructions: [facility] will call you to coordinate your care as prescribed by your provider. If you don't hear from a wholesale representative within 2 business days, please call [...] plan with any benefit or coverage questions. [facility] will call you to coordinate your care as prescribed by your provider. If you don't hear from a wholesale representative within 2 business days, please call . GENCY DEPARTMENT MANAGER Reason for Visit * Reason Comments Port Draw Labs drawn via port by RN in lab, vitals taken. Oncology Clinic Visit RTN Sickle cell Encounter Details Date Type Department Care Team (Late st Contact Info) Description 05/29/2024 11:30 AM EMERGENCY DEPARTMENT MANAGER Oncology Visit [facility] [address] [place] [address] Case Samuel MD [address] [place] [address] [address], [address] [place], [place] [address] Severe episode of recurrent major depressive disorder, [...] file Legal Sex Female 8:25 AM EMERGENCY DEPARTMENT MANAGER Gender Identity Not on file Sexual Orientation Not on file documented as of this encounter Last Filed Vital Signs Vital Sign Reading Time Taken Comments Blood Pressure 98/67 05/29/2024 11:09 AM EMERGENCY DEPARTMENT MANAGER Pulse 106 05/29/2024 11:09 AM EMERGENCY DEPARTMENT MANAGER Temperature 37.1 C (98.7 F) 05/29/2024 11:09 AM EMERGENCY DEPARTMENT MANAGER Respiratory Rate 18 05/29/2024 11:09 AM EMERGENCY DEPARTMENT MANAGER Oxygen Saturation 96% 05/29/2024 11:09 AM EMERGENCY DEPARTMENT MANAGER Inhaled Oxygen Concentration - - Weight 54.6 kg (120 lb 6.4 oz) 05/29/2024 11:09 AM EMERGENCY DEPARTMENT MANAGER Height - - Body Mass Index 22.75 05/29/2024 12:01 AM EMERGENCY DEPARTMENT MANAGER documented in this encounter Progress Notes * [...] it has been hard to transition to [place], especially in winter with a toddler. She [...] She said that she was born in [place] but moved throughout her childhood because her dad was in the . She is the youngest of 9 children she said, though she is the only one with sickle cell disease. Among other places, she was living in [place] for a time and then moved to [place]. It was there that shemet her boyfriend. She ultimately moved back to [place] and he came with her. It was there that they had a daughter Chanda, now 2 years old. That was a difficult for her, and she feelslike she never wants to be again. She was living in [place], [place] and receiving care at [facility], though she did not get the sense that network diagnostic support specialist there was super comfortable with sickle cell [...] about 3 weeks ago. She moved to [place] about 2 months ago. Her boyfriend is [...] worked up for symptomatic gallstones back in [place], but there were some delays in getting a cholecystectomy and by the time it was getting scheduled, they were moving to [place]. She reports that she has had a [...] them both so she can be a [id number] mom. Sickle Cell Disease Comprehensive Checklist Stroke/silent [...] titrate as needed and notify the primary network diagnostic support specialist via [employer] message if changes to the plan below are needed. Also please note that there is a mental health component to her pain, particularly in terms of adjustment to [place] which is likely to make her pain worse.. 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 She is 1 of 9 [...] Social Connections: Socially Integrated (03/28/2024) [facility] Do you often feel [...] Rate 86 BPM Atrial Rate 86 BPM OH Interval 154 ms QRS Duration 78 ms QT 370 ms QTc 442 ms P Van 18 degrees R AXIS 55 degrees T Van 25 degrees Interpretation ECG Sinus rhythm Nonspecific T wave abnormality Abnormal ECG When compared with ECG of 14-May-2024 22:12, Nonspecific T wave abnormality now evident in Inferior leads Confirmed by SEE ED PROVIDER NOTE FOR, ECG INTERPRETATION ([id number]), assistant editor Neeraj Allison ([id number]) on 05/20/2024 7:48:17 AM Basic metabolic panel [...] Absolute NRBCs 0.2 10e3/uL Extra Green Top ([place] Heparin) Tube Collection Time: 05/20/24 9:09 AM Result Value Ref Range Hold Specimen [facility] Basic metabolic panel Collection Time: 05/20/24 [...] Rate 103 BPM Atrial Rate 103 BPM OH Interval 124 ms QRS Duration 80 ms QT 316 ms QTc 413 ms P Van 82 degrees R AXIS 90 degrees T Van 70 degrees Interpretation ECG Sinus tachycardia Rightward axis Borderline ECG When compared with ECG of 20-May-2024 07:36, Nonspecific T wave abnormality no longer evident in Anterior leads Confirmed by SEE ED PROVIDER NOTE FOR, ECG INTERPRETATION ([id number]), assistant editor Leticia Warner ([id number]) on 05/22/2024 4:13:58 PM Basic metabolic panel [...] None Seen Elliptocytes Slight (A) None Seen [place] Bodies Present (A) None Seen Polychromasia Slight (A) None Seen RBC Fragments Slight (A) None Seen Sickle Cells Moderate (A) None Seen Target Cells Slight (A) None Seen ECG 12-LEAD WITH MUSE (LHE) Collection Time: 05/23/24 6:54 PM Result Value Ref Range Systolic Blood Pressure mmHg Diastolic Blood Pressure mmHg Ventricular Rate 77 BPM Atrial Rate 77 BPM OH Interval 160 ms QRS Duration 82 ms QT 362 ms QTc 409 ms P Van 61 degrees R AXIS 92 degrees T Van 49 degrees Interpretation ECG Sinus rhythm Rightward axis Borderline ECG When compared with ECG of 22-May-2024 15:14, Nonspecific T wave abnormality no longer evident in Inferior leads Confirmed by SEE ED PROVIDER NOTE FOR, ECG INTERPRETATION ([id number]), assistant editor SELMA GARRISON ([id number]) on 05/23/2024 7:30:33 PM CBC (+ platelets, [...] Rate 91 BPM Atrial Rate 91 BPM OH Interval 142 ms QRS Duration 80 ms QT 352 ms QTc 432 ms P Van 39 degrees R AXIS 62 degrees T Van 23 degrees Interpretation ECG Sinus rhythm Nonspecific T wave abnormality Abnormal ECG When compared with ECG of 23-May-2024 18:54, Nonspecific T wave abnormality now evident in Inferior leads Nonspecific T wave abnormality now evident in Anterior leads Confirmed by SEE ED PROVIDER NOTE FOR, ECG INTERPRETATION ([id number]), assistant editor BEN PRAKASH ([id number]) on 05/27/2024 12:22:37 PM Comprehensive metabolic panel [...] female who recently started receiving care at [facility] for sickle cell disease, HbSS (Apr 2024). She has several comorbidities related to sickle cell disease, including Chronic pain, AVN of the left hip, history of pulmonary embolism, history of transfusions with iron overload, history of stroke(details unclear), right eye retinopathy, acute on chronic anemia, gallstones, and a history of acute chest syndrome. She has been a regular visitor to the [facility] emergency department as well, and [...] discussions with the emergency department colleagues at [facility], I stressed that a sustainable [...] think outside the box. - Mental health maitre d referral placed HbSS Disease with several complications [...] around the hip and femur strong. -Orthopedic maitre d referral placed. Will defer to them for [...] per the note Case Samuel MD Classical Electrical Sign Servicer Division of Hematology, Oncology, and Transplantation [facility] [place] The longitudinal plan of care for the diagnosis(es)/condition(s) as documented were addressed during this visit. Due to the added complexity in care, I will continue to support Gianna in the subsequent management and with ongoing continuity of care. GENCY DEPARTMENT MANAGER documented in this encounter Nursing Notes * [...] checked into next appt. Jenifer Sheffield RN GENCY DEPARTMENT MANAGER * Laura Rg - 05/29/2024 11:30 AM [...] not needed today. Pharmacy name entered into [employer]: [facility] [address] [place], [place] - [phone] [facility] - [place], [place] - [address] [place] [address] Frailty Screening: Is the patient here for a new oncology consult visit in cancer care? 2. No Clinical concerns:Provider came in during rooming. Laura Rg GENCY DEPARTMENT MANAGER documented in this encounter Plan of Treatment Scheduled Referrals Name Type Priority Associated Diagnoses Orde r Schedule Adult Mental Health Block Chopper Hand Referral Referral Urgent: 3-5 Days Severe episode of recurrent major depressive disorder, without psychotic features (H) Expected: 05/29/2024 (Approximate), Expires: 05/29/2025 documented as of this encounter Goals Goal Patient Goal Type Associated Problems Recent Progress Patient-Stated? Author Pain Management General On track( 025 12:40 PM EMERGENCY DEPARTMENT MANAGER) Yes Juhi Benson, SOFIA Note: Goal [...] AND PLATELET MORPHOLOGY Routine 05/29/2024 11:23 AM EMERGENCY DEPARTMENT MANAGER CBC WITH PLATELETS AND DIFFERENTIAL Routine 05/29/2024 11:23 AM EMERGENCY DEPARTMENT MANAGER TYPE AND SCREEN, ADULT Add-On 11:23 AM EMERGENCY DEPARTMENT MANAGER History of transfusion BILL ONLY- CAPILLARY ELECTROPHORESIS Routine 05/29/2024 11:23 AM EMERGENCY DEPARTMENT MANAGER BILL ONLY- SICKLE SOLUBILITY BILL Routine 05/29/2024 11:23 AM EMERGENCY DEPARTMENT MANAGER ROUTINE UA WITH MICROSCOPIC REFLEX TO CULTURE Routine 05/29/2024 11:23 AM EMERGENCY DEPARTMENT MANAGER CBC WITH PLATELETS & DIFFERENTIAL Routine 05/29/2024 11:23 AM EMERGENCY DEPARTMENT MANAGER GENOTYPE RED BLOOD CELL Routine 05/29/19 11:23 AM EMERGENCY DEPARTMENT MANAGER History of transfusion RETICULOCYTE COUNT Routine 05/29/2024 11 :23 AM EMERGENCY DEPARTMENT MANAGER HEMOGLOBIN EVAL REFLEX TO ELP OR RBC SOLUBILITY Routine 05/29/2024 11:23 AM EMERGENCY DEPARTMENT MANAGER FERRITIN Routine 05/29/2024 11:23 AM EMERGENCY DEPARTMENT MANAGER COMPREHENSIVE METABOLIC PANEL Routine 05/29/2024 11:23 AM EMERGENCY DEPARTMENT MANAGER ABO/RH TYPE AND SCREEN Routine 11:23 AM EMERGENCY DEPARTMENT MANAGER History of transfusion URINE CULTURE Routine 05/29/2024 11:23 AM EMERGENCY DEPARTMENT MANAGER documented in this encounter Results * HGB Eval Reflex to ELP or RBC Solubility (05/29/2024 11:23 AM EMERGENCY DEPARTMENT MANAGER) Alpha Globin (HBA1 and HBA2) DD Bill Billed 05/31/2024 2:46 PM EMERGENCY DEPARTMENT MANAGER [facility] Comment: Performed By: [facility] [address] [place] [id number] [employer] Meat: Devon Healy MD, PhD CLIA Number: [id number] Blood VENOUS LINE / Unknown IVAD (Port) / Unknown 05/29/2024 11:23 AM EMERGENCY DEPARTMENT MANAGER 05/29/2024 11:30 AM EMERGENCY DEPARTMENT MANAGER us Case Samuel MD LAB CHARGE PERFORMABLES F inal Result [facility] [address] [place] [phone], [facility] [phone] * Bill Only- Sickle Solubility Bill (05/29/2024 11:23 AM EMERGENCY DEPARTMENT MANAGER) Sickle Solubility Reflex Bill Billed 05/31/2024 2:46 PM EMERGENCY DEPARTMENT MANAGER [facility] Comment: Performed By: [facility] [address] [place] [address] Molder Meat: Devon Healy MD, PhD CLIA Number: [id number] Blood VENOUS LINE / Unknown IVAD (Port) / Unknown 05/29/2024 11:23 AM EMERGENCY DEPARTMENT MANAGER 05/29/2024 11:30 AM EMERGENCY DEPARTMENT MANAGER Case Samuel MD LAB CHARGE PERFORMABLES F inal Result Performing Organization Address City/[facility]/ZIP Co de Phone Number [facility] [address] [place] [address], [facility] [phone] * Adult Type and Screen (05/29/2024 11:23 AM EMERGENCY DEPARTMENT MANAGER) ABO/RH(D) A POS 05/28/2024 6:00 PM EMERGENCY DEPARTMENT MANAGER [facility] Antibody Screen Negative Negative 05/28/2024 6:00 PM EMERGENCY DEPARTMENT MANAGER [facility] SPECIMEN EXPIRATION DATE [id number] 05/28/2024 6:00 PM EMERGENCY DEPARTMENT MANAGER [facility] Blood VENOUS LINE / Unknown IVAD (Port) / Unknown 05/29/2024 11:23 AM EMERGENCY DEPARTMENT MANAGER 05/29/2024 11:29 AM EMERGENCY DEPARTMENT MANAGER Case Samuel MD LAB - BLOOD BANK TEST ORD ER Final Result Performing Organization Address City/[facility]/ZIP Co de Phone Number [facility] [address] [place] [address] * Urine Culture (05/29/2024 11:23 AM EMERGENCY DEPARTMENT MANAGER) Culture <10,000 CFU/mL Mixture of Urogenital Vickie 05/30/2024 9:45 AM EMERGENCY DEPARTMENT MANAGER [facility] Urine URINE SPECIMEN OBTAINED BY CLEAN CATCH PROCEDURE / Unknown Non-blood Collection / Unknown 05/29/2024 11:23 AM EMERGENCY DEPARTMENT MANAGER 05/29/2024 11:41 AM EMERGENCY DEPARTMENT MANAGER Case Samuel MD LAB - MICRO GENERAL ORDER SYD Final Result [facility] Inf. Diseases Diag. Lab [address] [facility], [address] [place] [address] * (ABNORMAL) RBC and Platelet Morphology (05/29/2024 11:23 AM EMERGENCY DEPARTMENT MANAGER) RBC Morphology Confirmed RBC Indices 05/29/2024 12:33 PM EMERGENCY DEPARTMENT MANAGER [facility] - [facility] Platelet Assessment Automated Count Confirmed. Platelet morphology is normal. Automated Count Confirmed. Platelet morphology is normal. 05/29/2024 12:33 PM EMERGENCY DEPARTMENT MANAGER [facility] - [facility] Polychromasia Moderate(A) None Seen 05/29/2024 12:33 PM EMERGENCY DEPARTMENT MANAGER [facility] Sickle Cells Moderate(A) None Seen 05/29/2024 12:33 PM EMERGENCY DEPARTMENT MANAGER [facility] Target Cells Slight(A) None Seen 05/29/2024 12:33 PM EMERGENCY DEPARTMENT MANAGER [facility] - [facility] Teardrop Cells Slight(A) None Seen 05/29/2024 12:33 PM EMERGENCY DEPARTMENT MANAGER [facility] Blood VENOUS LINE / Unknown IVAD (Port) / Unknown 05/29/2024 11:23 AM EMERGENCY DEPARTMENT MANAGER 05/29/2024 11:29 AM EMERGENCY DEPARTMENT MANAGER Case Samuel MD LAB - BLOOD ORDERABLES Fi nal Result [facility] [place] [address] [place] [address] 1st [place] [address] * (ABNORMAL) CBC with platelets and differential (05/29/2024 11:23 AM EMERGENCY DEPARTMENT MANAGER) WBC Count 15.8(H) 4.0 - 11.0 10e3/uL 05/29/2024 12:37 PM EMERGENCY DEPARTMENT MANAGER [facility] RBC Count 2.11(L) 3.80 - 5.20 10e6/uL 05/29/2024 12:37 PM EMERGENCY DEPARTMENT MANAGER [facility] Hemoglobin 6.7(LL) 11.7 - 15.7 g/dL 05/29/2024 12:37 PM EMERGENCY DEPARTMENT MANAGER [facility] Hematocrit 19.2(L) 35.0 - 47.0 % 05/29/2024 12:37 PM [facility] MCV 91 78 - 100 fL 05/29/2024 12:37 PM [facility] MCH 31.8 26.5 - 33.0 pg 05/29/2024 12:37 PM [facility] MCHC 34.9 31.5 - 36.5 g/dL 05/29/2024 12:37 PM [facility] RDW 23.1(H) 10.0 - 15.0 % 05/29/2024 12:37 PM [facility] Platelet Count 417 150 - 450 10e3/uL 05/29/2024 12:37 PM [facility] % Neutrophils 56 % 05/29/2024 12:37 PM [facility] % Lymphocytes 25 % 05/29/2024 12:37 PM [facility] % Monocytes 15 % 05/29/2024 12:37 PM [facility] % Eosinophils 2 % 05/29/2024 12:37 PM [facility] % Basophils 1 % 05/29/2024 12:37 PM [facility] % Immature Granulocytes 1 % 05/29/2024 12:37 PM [facility] NRBCs per 100 WBC 2(H) <1 /100 025 12:37 PM [facility] Absolute Neutrophils 8.8(H) 1.6 - 8.3 10e3/uL 05/29/2024 12:37 PM [facility] Absolute Lymphocytes 4.0 0.8 - 5.3 10e3/uL 05/29/2024 12:37 PM [facility] Absolute Monocytes 2.4(H) 0.0 - 1.3 10e3/uL 05/29/2024 12:37 PM [facility] Absolute Eosinophils 0.3 0.0 - 0.7 10e3/uL 05/29/2024 12:37 PM [facility] Absolute Basophils 0.2 0.0 - 0.2 10e3/uL 05/29/2024 12:37 PM [facility] Absolute Immature Granulocytes 0.2 <=0.4 10e3/uL 05/29/2024 12:37 PM EMERGENCY DEPARTMENT MANAGER [facility] Absolute NRBCs 0.2 10e3/uL 05/29/2024 12:37 PM EMERGENCY DEPARTMENT MANAGER [facility] Blood VENOUS LINE / Unknown IVAD (Port) / Unknown 05/29/2024 11:23 AM EMERGENCY DEPARTMENT MANAGER 05/29/2024 11:29 AM EMERGENCY DEPARTMENT MANAGER Case Samuel MD LAB - BLOOD ORDERABLES Fi nal Result [facility] Clinics and Surgery [facility] [address] [facility] 1st [place] [address] * Genotype Red Blood Cell (05/29/2024 11:23 AM EMERGENCY DEPARTMENT MANAGER) Pathologist [facility] See Scanned Result GENOTYPE RED BLOOD CELL-Scanned 05/31/2024 10:16 AM EMERGENCY DEPARTMENT MANAGER [facility] Blood VENOUS LINE / Unknown IVAD (Port) / Unknown 05/29/2024 11:23 AM EMERGENCY DEPARTMENT MANAGER 05/29/2024 11:29 AM EMERGENCY DEPARTMENT MANAGER us Case Samuel MD LAB - BLOOD ORDERABLES Fi nal Result [facility] [address] [place] [address], [facility] [phone] * (ABNORMAL) HGB Eval Reflex to ELP or RBC Solubility (05/29/2024 11:23 AM EMERGENCY DEPARTMENT MANAGER) Hemoglobin A 15.0(L) 95.0 - 97.9 % 05/31/2024 2:46 PM EMERGENCY DEPARTMENT MANAGER [facility] Hemoglobin A2 3.0 2.0 - 3.5 % 05/31/2024 2:46 PM EMERGENCY DEPARTMENT MANAGER [facility] Hemoglobin F 10.8(H) 0.0 - 2.1 % 05/31/2024 2:46 PM EMERGENCY DEPARTMENT MANAGER [facility] Hemoglobin S 71.2(H) 0.0 - 0.0 % 05/31/2024 2:46 PM EMERGENCY DEPARTMENT MANAGER [facility] Hemoglobin C 0.0 0.0 - 0.0 % 05/31/2024 2:46 PM EMERGENCY DEPARTMENT MANAGER [facility] Hemoglobin E 0.0 0.0 - 0.0 % 05/31/2024 2:46 PM EMERGENCY DEPARTMENT MANAGER [facility] Hemoglobin - Other 0.0 0.0 - 0.0 % 05/31/2024 2:46 PM EMERGENCY DEPARTMENT MANAGER [facility] Hemoglobin Evaluation See Note 05/31/2024 2:46 PM EMERGENCY DEPARTMENT MANAGER [facility] Comment: Impression: Hb S present [...] Globin (HBA1 and HBA2) Deletion/Duplication ([facility] test #[id number]) should be considered. Hb S/beta-plus thalassemia is typically characterized by more Hb S than Hb A with the presence of microcytosis. If microcytosis is present and Hb S/beta-plus thalassemia is suspected, Beta Globin (HBB) Sequencing ([facility] test #[id number]) is suggested. Hemoglobin analysis should be offered [...] developed and its performance characteristics determined by [facility]. It has not been cleared or approved by the U.S. Food and Drug Administration. This test was performed in a CLIA-certified laboratory and is intended for clinical purposes. Sickle Cell Solubility Reflex Positive(A) 05/31/2024 2:46 PM EMERGENCY DEPARTMENT MANAGER [facility] Comment: INTERPRETIVE INFORMATION: Sickle Cell Solubility Reflex Not Performed: Solubility testing for Hemoglobin S not indicated. 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 Additional charges apply. Conf Previous: Positive for Hemoglobin S by HPLC. Solubility testing performed previously and not repeated with this submission. Hgb Capillary Electrophoresis Reflex Performed 05/31/2024 2:46 PM EMERGENCY DEPARTMENT MANAGER [employer] Comment: INTERPRETIVE INFORMATION: Hgb Capillary Electrophoresis Reflex Not Performed: Confirmation by Capillary Electrophoresis not indicated. Performed: Results confirmed by Capillary Electrophoresis. Additional charges apply. Conf Previous: Capillary Electrophoresis confirmation performed as part of a previous submission. Confirmation not repeated with this submission. Performed By: [facility] [address] [place] [id number] [employer]: Devon Healy MD, PhD CLIA Number: [id number] Blood VENOUS LINE / Unknown IVAD (Port) / Unknown 05/29/2024 11:23 AM EMERGENCY DEPARTMENT MANAGER 05/29/2024 11:30 AM EMERGENCY DEPARTMENT MANAGER Case Samuel MD LAB - BLOOD ORDERABLES Fi nal Result Performing Organization Address City/[facility]/ZIP Co de Phone Number [facility] [address] [place] [phone] [phone] * (ABNORMAL) Ferritin (05/29/2024 11:23 AM EMERGENCY DEPARTMENT MANAGER) Pathologist [facility] Ferritin 1,559(H) 6 - 175 ng/mL 05/29/2024 12:43 PM EMERGENCY DEPARTMENT MANAGER [facility] Blood VENOUS LINE / Unknown IVAD (Port) / Unknown 05/29/2024 11:23 AM EMERGENCY DEPARTMENT MANAGER 05/29/2024 11:29 AM EMERGENCY DEPARTMENT MANAGER Case Samuel MD LAB - BLOOD ORDERABLES Fi nal Result [facility] [address] 1st [place] [address] * (ABNORMAL) Routine UA with micro reflex to culture (05/29/2024 11:23 AM EMERGENCY DEPARTMENT MANAGER) Color Urine Yellow Colorless, Straw, Light Yellow, Yellow 05/29/2024 11:41 AM EMERGENCY DEPARTMENT MANAGER [facility] Appearance Urine Slightly Cloudy(A) Clear 05/29/2024 11:41 AM [facility] Glucose Urine Negative Negative mg/dL 05/29/2024 11:41 AM [facility] Bilirubin Urine Negative Negative 11:41 AM [facility] Ketones Urine Negative Negative mg/dL 05/29/2024 11:41 AM [facility] Specific [place] Urine 1.013 1.003 - 1.035 05/29/2024 11:41 AM [facility] Blood Urine Negative Negative 05/29/2024 11:41 AM [facility] pH Urine 7.0 5.0 - 7.0 05/29/2024 11:41 AM [facility] Protein Albumin Urine Negative Negative mg/dL 05/29/2024 11:41 AM [facility] Urobilinogen Urine Normal Normal, 2.0 mg/dL 05/29/2024 11:41 AM [facility] Nitrite Urine Negative Negative 05/29/2024 11:41 AM [facility] Leukocyte Esterase Urine Moderate(A) Negative 05/29/2024 11:41 AM EMERGENCY DEPARTMENT MANAGER [facility] Mucus Urine Present(A) None Seen /LPF 05/29/2024 11:41 AM [facility] RBC Urine 6(H) <=2 /HPF 05/29/2024 11:41 AM [facility] WBC Urine 3 <=5 /HPF 05/29/2024 11:41 AM [facility] Squamous Epithelials Urine 18(H) <=1 /HPF 05/29/2024 11:41 AM [facility] Urine URINE SPECIMEN OBTAINED BY CLEAN CATCH PROCEDURE / Unknown Non-blood Collection / Unknown 05/29/2024 11:23 AM EMERGENCY DEPARTMENT MANAGER 05/29/2024 11:29 AM EMERGENCY DEPARTMENT MANAGER Narrative [facility] - 05/29/2024 11:41 AM EMERGENCY DEPARTMENT MANAGER Urine Culture ordered based on laboratory criteria us Case Samuel MD LAB - URINE ORDERABLES Fi nal Result [facility] [address] 1[address] [place] [address] * (ABNORMAL) Comprehensive metabolic panel (05/29/2024 11:23 AM [facility]) Sodium 139 135 - 145 mmol/L 05/29/2024 11:58 AM [facility] Potassium 4.2 3.4 - 5.3 mmol/L 05/29/2024 11:58 AM [facility] Carbon Dioxide (CO2) 24 22 - 29 mmol/L 05/29/2024 11:58 AM [facility] Anion Gap 10 7 - 15 mmol/L 05/29/2024 11:58 AM [facility] Urea Nitrogen 9.2 6.0 - 20.0 mg/dL 05/29/2024 11:58 AM [facility] Creatinine 0.75 0.51 - 0.95 mg/dL 05/29/2024 11:58 AM [facility] GFR Estimate >90 >60 mL/min/1.7 3m2 05/29/2024 11:58 AM [facility] Comment:eGFR calculated usin g 2020 CKD-EPI equation. Calcium 8.9 8.8 - 10.4 mg/dL 05/29/2024 11:58 AM [facility] Chloride 105 98 - 107 mmol/L 05/29/2024 11:58 AM [facility] Glucose 109(H) 70 - 99 mg/dL 05/29/2024 11:58 AM [facility] Alkaline Phosphatase 83 40 - 150 U/L 05/29/2024 11:58 AM [facility] AST 49(H) 0 - 45 U/L 05/29/2024 11:58 AM [facility] ALT 21 0 - 50 U/L 05/29/2024 11:58 AM [facility] Protein Total 7.3 6.4 - 8.3 g/dL 05/29/2024 11:58 AM [facility] Albumin 4.1 3.5 - 5.2 g/dL 05/29/2024 11:58 AM [facility] Bilirubin Total 2.2(H) <=1.2 mg/dL 05/29/2024 11:58 AM EMERGENCY DEPARTMENT MANAGER [facility] Blood VENOUS LINE / Unknown IVAD (Port) / Unknown 05/29/2024 11:23 AM EMERGENCY DEPARTMENT MANAGER 05/29/2024 11:29 AM EMERGENCY DEPARTMENT MANAGER Case Samuel MD LAB - BLOOD ORDERABLES Fi nal Result Performing Organization Address [facility] de Phone Number [facility] - [address] [place] [address] * (ABNORMAL) Reticulocyte count (05/29/2024 11:23 AM EMERGENCY DEPARTMENT MANAGER) [facility] % Reticulocyte 29.8(H) 0.5 - 2.0 % 05/29/2024 12:00 PM EMERGENCY DEPARTMENT MANAGER [facility] Absolute Reticulocyte 0.631(H) 0.025 - 0.095 10e6/uL 05/29/2024 12:00 PM EMERGENCY DEPARTMENT MANAGER [facility] Blood VENOUS LINE / Unknown IVAD (Port) / Unknown 05/29/2024 11:23 AM EMERGENCY DEPARTMENT MANAGER 05/29/2024 11:29 AM EMERGENCY DEPARTMENT MANAGER Case Samuel MD LAB - BLOOD ORDERABLES Fi nal Result Performing Organization Address [facility] de Phone Number [facility] [address] [place] [address] documented in this encounter Visit Diagnoses Diagnosis [...] Wed05/29/24 at 1130 $Given 05/29/2024 11:29 AM EMERGENCY DEPARTMENT MANAGER 5 mLs sodium chloride (PF) 0.9% PF flush 20 mL 20 mL, Intravenous, ONCE, On 05/29/24 at 1130, For 1 dose $Given 05/29/2024 11:30 AM EMERGENCY DEPARTMENT MANAGER 20 mLs documented in this encounter Care Teams Punch Press Setter Relationship Specialty Start Date End Date No Ref-Primary, Physician PCP - General 03/15/24 06/17/24 Mor Ramsey Medical Student 04/03/24 Case Samuel MD [address] [place] [address] [address] [place] [address] Assigned Pediatric Specialist Provider 05/18/24 Juhi Benson, RN Specialty Medical Diagnostic Radiographer Hematology & Oncology 05/29/24 documented as of this encounter
--- OUTSIDE RECORDS SUMMARY | 2024-06-24 20:54 | XMS_ITS | Encounter Summary ---
Author Organization [place] Address [address] [place] [address]. [place] [address] Care Team Providers Care Health Facilities Surveyor Name Role Phone No Ref-Primary, Physician Primary Care Provider Mor Ramsey Unavailable Unavailable Case Samuel MD Unavailable [phone] Juhi Benson RN Unavailable Unavailable Encounter Details Date Type Department Care Team (Late st Contact Info) Description 05/29/2024 Orders Only [facility] [address] [place] [address] Juhi Benson, SOFIA Sickle cell [...] on file Legal Sex Female 8:25 AM AUTOMOBILE REPAIR SERVICE ESTIMATOR Gender Identity Not on file Sexual Orientation Not on file documented as of this encounter Plan of Treatment Not on file documented as of this encounter Goals Goal Patient Goal Type Associated Problems Recent Progress Patient-Stated? Author Pain Management General On track( 025 12:40 PM AUTOMOBILE REPAIR SERVICE ESTIMATOR) Yes Juhi Benson RN Note: Goal Statement: [...] crisis documented in this encounter Care Teams Health Facilities Surveyor Relationship Specialty Start Date End Date No Ref-Primary, Physician PCP - General 03/15/24 06/17/24 Mor Ramsey Medical Student 04/03/24 Case Samuel MD [address] [place] [address] [address], [address] [place] [address] Assigned Pediatric Specialist Provider 05/18/24 Juhi Benson, RN Specialty Supervisor Hot Dip Plating Hematology & Oncology 05/29/24 documented as of this encounter
--- OUTSIDE RECORDS SUMMARY | 2024-06-24 20:54 | XMS_ITS | Encounter Summary ---
Author Organization [place] Address [address] [place] [id number] Care Team Providers Care Irrigation Foreman Name Role Phone No Ref-Primary, Physician Primary Care Provider Mor Ramsey Unavailable Unavailable Case Samuel MD Unavailable [phone] Juhi Benson RN Unavailable Unavailable Reason for Visit * Reason Comments Blood Transfusion 1 unit blood Infusion Fluids and pain medi cations Encounter Details Date Type Department Care Team (Late st Contact Info) Description 05/30/2024 8:00 AM WINDOWS SECURITY ENGINEER Infusion Therapy Visit M [facility] [address] [place] [address] Case Samuel MD [address] [place] [address] [address], [address] [place], [place] [id number] 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); [...] on file Legal Sex Female 8:25 AM WINDOWS SECURITY ENGINEER Gender Identity Not on file Sexual Orientation Not on file documented as of this encounter Last Filed Vital Signs Vital Sign Reading Time Taken Comments Blood Pressure 109/72 05/30/2024 11:15 AM WINDOWS SECURITY ENGINEER Pulse 77 05/30/2024 11:15 AM WINDOWS SECURITY ENGINEER Temperature 36.5 C (97.7 F) 05/30/2024 10:21 AM WINDOWS SECURITY ENGINEER Respiratory Rate 16 05/30/2024 10:21 AM WINDOWS SECURITY ENGINEER Oxygen Saturation 95% 05/30/2024 10:21 AM WINDOWS SECURITY ENGINEER Inhaled Oxygen Concentration - - Weight - - Height - - Body Mass Index - - documented in this encounter Patient Instructions * Patient Instructions* Arlene Moses RN - 05/30/2024 8:00 AM WINDOWS SECURITY ENGINEER Dear Gianna Hernández Thank you for choosing [facility] ([facility]) for your transfusion. The following information is a summary of our appointment as well as important reminders. If you have any questions on your upcoming Specialty Infusion appointments, please call scheduling at [phone]. It was a pleasure taking care of you today. Sincerely, [facility] [address] [place] [address] OWS SECURITY ENGINEER * Attachments The following attachments cannot be sent through Care Everywhere. * Blood Transfusions: General Info (French) documented in this encounter Progress Notes * Arlene Moses RN - 05/30/2024 8:00 AM CST Blood Product Transfusion Nursing Note: Gianna Hernández presents today to [facility] for a blood transfusion. During today's [facility] appointment orders from Dr Samuel were completed. Progress note: ID verified by name and . Assessment completed. Vitals were stable throughout time in [facility]. Verbal education given to patient/goodwill representative regarding transfusion and possible side effects. Patient/goodwill representative verbalized understanding. Metal Treater present during visit today: Not Applicable. All [...] Discharge instructions were reviewed with patient Yes Patient/goodwill representative verbalized understanding of discharge instructions and [...] By Arlene Moses RN Alyssa Sakhitab-Kerestes, RN OWS SECURITY ENGINEER documented in this encounter Plan of Treatment Not on file documented as of this encounter Goals Goal Patient Goal Type Associated Problems Recent Progress Patient-Stated? 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) History of transfusion PREPARE RED BLOOD CELLS (UNIT) Routine 05/29/2024 5:12 PM WINDOWS SECURITY ENGINEER documented in this encounter Results * Transfuse red blood cells (unit), Sickle Cell (Hgb S) Negative (05/30/2024 10:24 AM WINDOWS SECURITY ENGINEER) Case Samuel MD BLOOD TRANSFUSION ORDERAB LES Final Result * Transfuse red blood cells (unit), 1 Units, Sickle Cell (Hgb S) Negative (05/30/2024 10:24 AM WINDOWS SECURITY ENGINEER) Case Samuel MD BLOOD TRANSFUSION ORDERAB LES Final Result * Prepare red blood cells (unit) (05/29/2024 5:12 PM WINDOWS SECURITY ENGINEER) Blood Component Type Red Blood Cells [facility] BLOOD BANK Product Code [id number] [facility] BLOO D BANK Unit Status Transfused [facility] BLOO D BANK Unit Number [id number] UU B LOOD BANK CROSSMATCH COMPATIBLE U BLOOD BANK CODING SYSTEM [id number] U[facility] BLO OD BANK ISSUE DATE AND TIME [id number] [facility] BLOOD BANK UNIT ABO/RH A- [facility] BLOOD BANK UNIT TYPE ISBT 0600 U[facility] BL OOD BANK 05/29/2024 5:12 PM WINDOWS SECURITY ENGINEER Case Samuel MD BLOOD BANK PRODUCT ORDERA BLES Final Result [facility] BLOOD BANK [address] [place] [address], [facility] documented in this encounter Visit [...] (H),History of transfusion $Given 05/30/2024 11:18 AM WINDOWS SECURITY ENGINEER 5 mLs HYDROmorphone (DILAUDID) injection 2 mg 2 mg, Intravenous, EVERY 1 HOUR PRN, severe pain, moderate pain, Starting on Wed05/30/24 at 0833, For 3 dosesIndications:Sickle cell pain crisis (H) $Given 05/30/2024 10:56 AM WINDOWS SECURITY ENGINEER 2 mg $Given 05/30/2024 9:44 AM WINDOWS SECURITY ENGINEER 2 mg $Given 05/30/2024 8:39 AM WINDOWS SECURITY ENGINEER 2 mg lactated ringers BOLUS 1,000 mL Intravenous, 1,000 mL, ONCE, at 500 mL/hr, Administer over 2 Hours, On Wed05/30/24 at 0845, For 1 doseIndications:Sickle cell pain crisis (H) $New Bag 05/30/2024 10:24 AM WINDOWS SECURITY ENGINEER 500 mLs 500 mL/hr sodium chloride (PF) [...] (H),History of transfusion $Given 05/30/2024 11:18 AM WINDOWS SECURITY ENGINEER 20 mLs $Given 05/30/2024 10:20 AM WINDOWS SECURITY ENGINEER 20 mLs documented in this encounter Care Teams Irrigation Foreman Relationship Specialty Start Date End Date No Ref-Primary, Physician PCP - General 03/15/24 06/17/24 Mor Ramsey Medical Student 04/03/24 Case Samuel MD [address] [place] [address] [address], [address] [place] [address] Assigned Pediatric Specialist Provider 05/18/24 Juhi Benson, RN Specialty Type Casting Machine Operator Hematology & Oncology 05/29/24 documented as of this encounter
--- OUTSIDE RECORDS SUMMARY | 2024-06-24 20:54 | XMS_ITS | Encounter Summary ---
Author Organization [place] Address [address] [place] [address]. [place] [address] Care Team Providers Care Associate Professor Of Theology Name Role Phone No Ref-Primary, Physician Primary Care Provider Mor Ramsey Unavailable Unavailable Case Samuel MD Unavailable [phone] Juhi Benson RN Unavailable Unavailable Encounter Details [...] on file Legal Sex Female 8:25 AM AIRBRUSH ARTIST PHOTOGRAPHY Gender Identity Not on file Sexual Orientation Not on file documented as of this encounter Plan of Treatment Not on file documented as of this encounter Goals Goal Patient Goal Type Associated Problems Recent Progress Patient-Stated? Author Pain Management General On track( 025 12:40 PM AIRBRUSH ARTIST PHOTOGRAPHY) Yes Juhi Benson RN Note: Goal Statement: [...] on filedocumented in this encounter Care Teams Associate Professor Of Theology Relationship Specialty Start Date End Date No Ref-Primary, Physician PCP - General 03/15/24 06/17/24 Mor Ramsey Medical Student 04/03/24 Case Samuel MD [address] [place] [address] [address], [address] [place] [address] Assigned Pediatric Specialist Provider 05/18/24 Juhi Benson RN Specialty Paper Stripper Hematology & Oncology 05/29/24 documented as of this encounter
--- OUTSIDE RECORDS SUMMARY | 2024-06-24 20:54 | XMS_ITS | Encounter Summary ---
Author Organization [place] Address [address] [place] [id number] Care Team Providers Care Cut In Station Operator Name Role Phone No Ref-Primary, Physician Primary Care Provider Mor Ramsey Unavailable Unavailable Case Samuel MD Unavailable [phone] Juhi Benson RN Unavailable Unavailable Reason for Visit * Reason Comments Sickle Cell Pain Crisis Encounter Details Date Type Department Care Team (Late st Contact Info) Description 05/31/2024 9:56 PM SEED CORN MANAGER PRODUCTION - 06/01/2024 12:[address] [facility] Emergency [facility] Emergency Room [facility] [place] [address] Carley Riggins MD [address] [address] Sickle cell pain crisis (H) Discharge Disposition: [...] on file Legal Sex Female 8:25 AM SEED CORN MANAGER PRODUCTION Gender Identity Not on file Sexual Orientation Not on file documented as of this encounter Last Filed Vital Signs Vital Sign Reading Time Taken Comments Blood Pressure 118/63 06/01/2024 12:41 AM SEED CORN MANAGER PRODUCTION Pulse 71 06/01/2024 12:41 AM SEED CORN MANAGER PRODUCTION Temperature 36.7 C (98 F) 05/31/2024 9:39 PM SEED CORN MANAGER PRODUCTION Respiratory Rate 20 05/31/2024 9:39 PM SEED CORN MANAGER PRODUCTION Oxygen Saturation 98% 06/01/2024 12:41 AM SEED CORN MANAGER PRODUCTION Inhaled Oxygen Concentration - - Weight 54.4 kg (120 lb) 05/31/2024 9:39 PM SEED [employer]N MANAGER PRODUCTION Height 154.9 cm (5' 1) 05/31/2024 9:39 PM SEED [employer]N MANAGER PRODUCTION Body Mass Index 22.67 05/31/2024 9:39 PM SEED [employer]N MANAGER PRODUCTION documented in this encounter Discharge Instructions * Attachments The following attachments cannot be sent through Care Everywhere. * Sickle Cell Crisis (Finnish) documented in this encounter Medications at Time [...] her left chest. She recently moved to [place] from [place], and notes the difference in temperature may be exacerbating her symptoms. Patient denies any other complaints at this time. 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 Recently moved to [place] from [place], [place]. She is 1 of 9 [...] Social Connections: Socially Integrated (03/28/2024) [facility] [employer] [facility] Do you often [...] Automated Count Confirmed. Platelet morphology is normal. Hospers Cells Slight (*) Elliptocytes Slight (*) [place] Bodies Present (*) Polychromasia Slight (*) Sickle [...] my direction. Carley Riggins M.D. Emergency Medicine [facility] EMERGENCY ROOM [address] [facility] [phone] Dept: [phone] Carley Riggins MD 06/01/24 0048 CORN MANAGER PRODUCTION * Aminata Farley RN - 05/31/2024 9:40 PM CST Pt is coming in with a sickle cell crisis. Pt was unable to pecan picker her medication d/t pharmacy needing to order it. Tylenol last at 1700 Ibuprofen last at 2100 Triage Assessment (Adult) Row Name 05/31/242139 Triage Assessment Airway WDL WDL Respiratory WDL Respiratory WDL WDL Skin Circulation/Temperature WDL Skin Circulation/Temperature WDL WDL Cardiac WDL Cardiac WDL WDL Peripheral/Neurovascular WDL Peripheral Neurovascular WDL WDL Cognitive/Neuro/Behavioral WDL Cognitive/Neuro/Behavioral WDL WDL CORN MANAGER PRODUCTION documented in this encounter Plan of Treatment Not on file documented as of this encounter Goals Goal Patient Goal Type Associated Problems Recent Progress Patient-Stated? Author Pain Management General On track( 025 12:40 PM SEED CORN MANAGER PRODUCTION) Yes Juhi Benson, RN Note: Goal Statement: [...] AND PLATELET MORPHOLOGY STAT 05/31/2024 10:21 PM SEED [employer]N MANAGER PRODUCTION CBC WITH PLATELETS AND DIFFERENTIAL STAT 05/31/2024 10:21 PM SEED [employer]N MANAGER PRODUCTION CBC WITH PLATELETS & DIFFERENTIAL STAT 05/31/2024 10:21 PM SEED [employer]N MANAGER PRODUCTION RETICULOCYTE COUNT STAT 05/31/2024 10 :21 PM SEED [employer]N MANAGER PRODUCTION BASIC METABOLIC PANEL STAT 05/31/2024 10:21 PM SEED [employer]N MANAGER PRODUCTION documented in this encounter Results * (ABNORMAL) RBC and Platelet Morphology (05/31/2024 10:21 PM SEED CORN MANAGER PRODUCTION) [facility] RBC Morphology Confirmed RBC Indices 05/31/2024 10:59 PM SEED CORN MANAGER PRODUCTION [facility] Platelet Assessment Automated Count Confirmed. Platelet morphology is normal. Automated Count Confirmed. Platelet morphology is normal. JARET 05/31/2024 10:59 PM SEED CORN MANAGER PRODUCTION [facility] Mary Cells Slight(A) None Seen JARET 05/31/2024 10:59 PM SEED CORN MANAGER PRODUCTION [facility] Elliptocytes Slight(A) None Seen JARET 05/31/2024 10:59 PM SEED CORN MANAGER PRODUCTION [facility] [place] Bodies Present(A) None Seen JARET 05/31/2024 10:59 PM SEED CORN MANAGER PRODUCTION [facility] Polychromasia Slight(A) None Seen AJRET 05/31/2024 10:59 PM SEED CORN MANAGER PRODUCTION [facility] Sickle Cells Moderate(A) None Seen JARET 05/31/2024 10:59 PM SEED CORN MANAGER PRODUCTION [facility] Target Cells Slight(A) None Seen AJRET 05/31/2024 10:59 PM SEED CORN MANAGER PRODUCTION [facility] Blood BLOOD SPECIMEN / Unknown Venipuncture / Unknown 05/31/2024 10:21 PM SEED CORN MANAGER PRODUCTION 05/31/2024 10:24 PM SEED CORN MANAGER PRODUCTION us Carley Riggins MD LAB - BLOOD ORDERABLES [facility] Result [facility] [address] [place] [address], [facility] * (ABNORMAL) CBC with platelets and differential (05/31/2024 10:21 PM SEED CORN MANAGER PRODUCTION) [facility] WBC Count 15.4(H) 4.0 - 11.0 10e3/uL 05/31/2024 10:[address] [facility] RBC Count 2.73(L) 3.80 - 5.20 10e6/uL 05/31/2024 10:[address] [facility] Hemoglobin 8.9(L) 11.7 - 15.7 g/dL 05/31/2024 10:[address] [facility] Hematocrit 24.8(L) 35.0 - 47.0 % 05/31/2024 10:[address] [facility] MCV 91 78 - 100 fL 05/31/2024 10:[address] [facility] MCH 32.6 26.5 - 33.0 pg 05/31/2024 10:[address] [facility] MCHC 35.9 31.5 - 36.5 g/dL 05/31/2024 10:[address] [facility] RDW 21.2(H) 10.0 - 15.0 % 05/31/2024 10:[address] [facility] Platelet Count 399 150 - 450 10e3/uL 05/31/2024 10:[address] [facility] % Neutrophils 56 % 05/31/2024 10:[address] [facility] % Lymphocytes 27 % 05/31/2024 10:[address] [facility] % Monocytes 14 % 05/31/2024 10:[address] [facility] % Eosinophils 1 % 05/31/2024 10:[address] [facility] % Basophils 1 % 05/31/2024 10:[address] [facility] % Immature Granulocytes 1 % 05/31/2024 10:[address] [facility] NRBCs per 100 WBC 2(H) <1 /100 025 10:[address] [facility] Absolute Neutrophils 8.7(H) 1.6 - 8.3 10e3/uL 05/31/2024 10:[address] [facility] Absolute Lymphocytes 4.2 0.8 - 5.3 10e3/uL 05/31/2024 10:[address] [facility] Absolute Monocytes 2.2(H) 0.0 - 1.3 10e3/uL 05/31/2024 10:[address] [facility] Absolute Eosinophils 0.2 0.0 - 0.7 10e3/uL 05/31/2024 10:[address] [facility] Absolute Basophils 0.1 0.0 - 0.2 10e3/uL 05/31/2024 10:[address] [facility] Absolute Immature Granulocytes 0.1 <=0.4 10e3/uL 05/31/2024 10:[address] [facility] Absolute NRBCs 0.3 10e3/uL 05/31/2024 10:[address] [facility] Blood BLOOD SPECIMEN / Unknown Venipuncture / Unknown 05/31/2024 10:21 PM SEED [employer]N MANAGER PRODUCTION 05/31/2024 10:[address] [facility] us Carley Riggins MD LAB - BLOOD ORDERABLES [facility] [address] Result [facility] [address] [place] [address], [facility] * (ABNORMAL) Basic metabolic panel (05/31/2024 10:[address] [facility]) Sodium 133(L) 135 - 145 mmol/L 05/31/2024 10:[address] [facility] Potassium 4.1 3.4 - 5.3 mmol/L 05/31/2024 10:[address] [facility] Chloride 102 98 - 107 mmol/L 05/31/2024 10:[address] [facility] Carbon Dioxide (CO2) 20(L) 22 - 29 mmol/L 05/31/2024 10:[address] [facility] Anion Gap 11 7 - 15 mmol/L 05/31/2024 10:[address] [facility] Urea Nitrogen 9.9 6.0 - 20.0 mg/dL 05/31/2024 10:[address] [facility] Creatinine 0.70 0.51 - 0.95 mg/dL 05/31/2024 10:[address] [facility] GFR Estimate >90 >60 mL/min/1.7 3m2 05/31/2024 10:[address] [facility] Comment:eGFR calculated usin g 2020 CKD-EPI equation. Calcium 9.0 8.8 - 10.4 mg/dL 05/31/2024 10:[address] [facility] Glucose 97 70 - 99 mg/dL 05/31/2024 10:46 PM SEED [employer]N MANAGER PRODUCTION [facility] Blood BLOOD SPECIMEN / Unknown Venipuncture / Unknown 05/31/2024 10:21 PM SEED [employer]N MANAGER PRODUCTION 05/31/2024 10:24 PM SEED [employer]N MANAGER PRODUCTION Carley Riggins MD LAB - BLOOD ORDERABLES Liss l Result Performing Organization Address [facility]/ZIP Co de Phone Number [facility] [address] [place] [address] [place] Munoz [id number], [facility] * (ABNORMAL) Reticulocyte count (05/31/2024 10:21 PM SEED [employer]N MANAGER PRODUCTION) [facility] % Reticulocyte 22.7(H) 0.5 - 2.0 % 05/31/2024 10:45 PM SEED [employer]N MANAGER PRODUCTION [facility] Absolute Reticulocyte 0.631(H) 0.025 - 0.095 10e6/uL 05/31/2024 10:45 PM SEED [employer]N MANAGER PRODUCTION [facility] Blood BLOOD SPECIMEN / Unknown Venipuncture / Unknown 05/31/2024 10:21 PM SEED [employer]N MANAGER PRODUCTION 05/31/2024 10:24 PM SE[employer]N MANAGER PRODUCTION Carley Riggins MD LAB - BLOOD ORDERABLES Liss l Result Performing Organization Address [facility] de Phone Number [facility] [address] [place] [address] [place] [id number], [facility] documented in this [...] For 1 dose $Given 05/31/2024 10:50 PM SE[employer]N MANAGER [employer]ODUCTION 25 mg heparin lock flush 100 unit/mL injection 100 Units 100 Units, Intracatheter, ONCE, On Wed06/01/24 at 0030, For 1 dose $Given 06/01/2024 12:39 AM SEED [employer]N MANAGER PRODUCTION 100 Units HYDROmorphone (DILAUDID) injection 2 mg 2 mg, Intravenous, EVERY 1 HOUR PRN, severe pain, Starting on Wed05/31/24 at 2143, For 3 doses $Given 06/01/2024 12:36 AM SEED [employer]N MANAGER PRODUCTION 2 mg $Given 05/31/2024 11:42 PM [employer]N MANAGER PRODUCTION 2 mg $Given 05/31/2024 10:28 PM [employer] MANAGER PRODUCTION 2 mg lactated ringers infusion at 500 mL/hr, Intravenous, CONTINUOUS, Starting on Wed05/31/24 at 2200, Until Wed05/31/24 at 2359 $New Bag 05/31/2024 10:22 PM [employer]ED [employer]N MANAGER PRODUCTION 500 mL/hr ondansetron (ZOFRAN) injection 8 mg 8 mg, Intravenous, ONCE, Administer over 2-5 Minutes, On Wed05/31/24 at 2200, For 1 dose $Given 05/31/2024 10:27 PM SEED [employer]N MANAGER PRODUCTION 8 mg documented in this encounter Active and Recently Administered Medications Times are shown in SEED [employer]N MANAGER PRODUCTION. Scheduled Medication Order 05/30/2024 05/31/2024 06/01/2024 diphenhydrAMINE [...] SOFIA) documented in this encounter Care Teams Cut In Station Operator Relationship Specialty Start Date End Date No Ref-Primary, Physician PCP - General 03/15/24 06/17/24 Roxy Mor Medical Student 04/03/24 Case Samuel MD [address] [place] [address], [address] [place] [address] Assigned Pediatric Specialist Provider 05/18/24 Juhi Benson, SOFIA Specialty Head Greenskeeper Hematology & Oncology 05/29/24 documented as of this encounter
--- OUTSIDE RECORDS SUMMARY | 2024-06-24 20:54 | XMS_ITS | Encounter Summary ---
Author Organization [facility] Address [address] [place] [address]. [place] [address] Care Team Providers Care Silverware Buffer Name Role Phone No Ref-Primary, Physician Primary Care Provider Mor Ramsey Unavailable Unavailable Case Samuel MD Unavailable [phone] Encounter Details Date Type Department Care Team [...] on file Legal Sex Female 8:25 AM ROUGE PRESSER Gender Identity Not on file Sexual Orientation Not on file documented as of this encounter Plan of Treatment Not on file documented as of this encounter Goals Goal Patient Goal Type Associated Problems Recent Progress Patient-Stated? Author Pain Management General On track( 025 12:40 PM ROUGE PRESSER) Yes Juhi Benson, RN Note: Goal Statement: [...] on filedocumented in this encounter Care Teams Silverware Buffer Relationship Specialty Start Date End Date No Ref-Primary, Physician PCP - General 03/15/24 06/17/24 Mor Ramsey Medical Student 04/03/24 Case Samuel MD [address] [place] [address], [address] [place] [address] Assigned Pediatric Specialist Provider 05/18/24 documented as of this encounter
--- OUTSIDE RECORDS SUMMARY | 2024-06-24 20:54 | XMS_ITS | Encounter Summary ---
Author Organization [facility] Address [address] [place] [address] Care Team Providers Care Wood Treating Inspector Name Role Phone No Ref-Primary, Physician Primary Care Provider Mor Ramsey Unavailable Unavailable Case Samuel MD Unavailable [phone] Reason for Referral * Therapeutic Imaging/IR (Routine: Next available opening) - Closed Specialty Diagnoses / Procedures Referred By Contac t Referred To Contact Radiology. 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) [...] on file Legal Sex Female 8:25 AM CHAIRMAN Gender Identity Not on file Sexual Orientation Not on file documented as of this encounter Last Filed Vital Signs Vital Sign Reading Time Taken Comments Blood Pressure 100/60 05/25/2024 4:00 PM CHAIRMAN Pulse 92 05/25/2024 3:00 PM CHAIRMAN Temperature 36.9 C (98.5 F) 05/25/2024 11:09 AM CHAIRMAN Respiratory Rate 16 05/25/2024 4:00 PM CHAIRMAN Oxygen Saturation 98% 05/25/2024 4:00 PM CHAIRMAN Inhaled Oxygen Concentration - - Weight 51.1 kg (112 lb 9.6 oz) 05/25/2024 11:09 AM CHAIRMAN Height - - Body Mass Index 21.28 05/23/2024 4:48 PM CHAIRMAN documented in this encounter Discharge Instructions * Discharge Instructions* Hattie Ballesteros RN - 05/25/2024 3:24 PM CHAIRMAN Images from the original note were not included. [facility] Interventional Radiology Discharge Instructions Following Port Placement You had a 2 ports placed. On the right side of your chest is a apheresis port and on the left side of your chest in a smart port. A port is a small medical collections specialist that is placed under the skin and isconnected to a vein with a catheter (thin, flexible tube). Ports can be used to administer IV medications (including chemotherapy), fluids or blood products or for blood lab draws. Please follow the below instructions after your procedure: Your Ports has been closed with Blackburn Allen (Skin Glue) If there is any [...] port placement for further instructions for this. [facility] INTERVENTIONAL RADIOLOGY DEPARTMENT Procedure Physician: Myron Michel MD Date of procedure: May 25, 2024 Telephone Numbers: [phone] Wednesday-Wednesday 7:30 am to 4:00 pm [phone] After 4:00 pm Wednesday-Wednesday, Weekends & Holidays. Ask for the Interventional Radiologist chuck boner. Someone is chuck boner 24 hrs/day [facility] toll free number: Wednesday-Wednesday 8:00 am to 4:30 pm [facility] Emergency Dept: [phone] IF YOU ARE EXPERIENCING A MEDICAL EMERGENCY PLEASE CALL 911 RMAN RMAN documented in this encounter Medications at Time [...] to s/o who is driving patient home. RMAN * Hattie Ballesteros RN - 05/25/2024 3:07 PM CST Patient returned s/p bilateral port placement with apheresis port on the right and smart port on the left, both with dermabond, intact no bleeding or swelling. Patient c/o 7/10 pain, RN called Dr. Anglin and got home dose of dilaudid ordered. Patient alert and oriented, RASS of 0. Will discharge once meeting criteria. RMAN * Hattie Ballesteros RN - 05/25/2024 12:32 PM CST Patient prepped for port placement x 2. Patient will have a power port and a apharesis IV port. Consent signed. PIV placed in left AC by vascular, IV antibiotic running. Appropriately NPO. Patient has sickle cell disease, reports pain okay today. S/o Vineet will be picking patient up. RMAN documented in this encounter Procedure Notes * Myron Michel MD - 05/25/2024 2:55 PM CSTAssociated Order(s): IR Procedure Note [facility] Procedure: IR Procedure Note Date/Time: [...] the procedure a time out was called Phoenix Protocol: the Joint Commission [place] Protocol was followed Preparation: Patient was prepped and draped in usual sterile fashion ANESTHESIA Anesthesia: Local infiltration Local Anesthetic: Lidocaine 1% without epinephrine SEDATION Patient Sedated: Yes Sedation Type: Moderate (conscious) sedation Sedation: Fentanyl and midazolam Vital signs: Vital signs monitored during sedation See dictated procedure note for full details. Findings: Successful bilateral port placement apheresis on the right, 6 [place] citizen smart port on the left Specimens: none Procedural Complications: None Condition: Stable Plan: 1 hour bedrest then okay to discharge PROCEDURE Describe Procedure: Successful bilateral port placement apheresis on the right, 6 [place] citizen smart porton the left Patient Tolerance: Patient tolerated the procedure well with no immediate complications Length of time physician/provider present for 1:1 monitoring during sedation: 83-97 min RMAN documented in this encounter Miscellaneous Notes * [...] mcg of fentanyl Sedation time: 97 minutes ([id number]) Report given to: Juhi Aviles RN Die Inspector: n/a Other Notes: Pt arrived to IR [...] (5 mL). Pt transferred back to . RMAN * Pre-Procedure - Juan Story PA-Jefferson - 05/25/2024 11:37 AM CHAIRMAN GENERAL PRE-PROCEDURE: Procedure: Port placement x2 Date/Time: [...] data, medications, and the plan for sedation RMAN documented in this encounter Plan of Treatment Not on file documented as of this encounter Goals Goal Patient Goal Type Associated Problems Recent Progress Patient-Stated? 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) HCG QUALITATIVE URINE Routine 05/25/2024 12:03 PM CHAIRMAN documented in this encounter Results * IR Procedure Note (05/25/2024 2:54 PM CHAIRMAN) Narrative Myron Michel MD - 05/25/2024 2:54 PM CHAIRMAN Myron Michel MD 05/25/2024 2:55 PM [facility] Procedure: IR Procedure Note Date/Time: [...] the procedure a time out was called Phoenix Protocol: the Joint Commission [place] Protocol was followed Preparation: Patient was prepped and draped in usual sterile fashion ANESTHESIA Anesthesia: Local infiltration Local Anesthetic: Lidocaine 1% without epinephrine SEDATION Patient Sedated: Yes Sedation Type: Moderate (conscious) sedation Sedation: Fentanyl and midazolam Vital signs: Vital signs monitored during sedation See dictated procedure note for full details. Findings: Successful bilateral port placement apheresis on the right, 6 [place] citizen smart port on the left Specimens: none Procedural Complications: None Condition: Stable Plan: 1 hour bedrest then okay to discharge PROCEDURE Describe Procedure: Successful bilateral port placement apheresis on the right, 6 [place] citizen smart port on the left Patient Tolerance: Patient tolerated the procedure well with no immediate complications Length of time physician/provider present for 1:1 monitoring during sedation: 83-97 min us Myron Michel MD PROCEDURE/MINOR SURGICAL ORDERA BLES Final Result * IR Chest Port Placement > 5 Yrs of Age (05/25/2024 2:47 PM CHAIRMAN) Anatomical Region Laterality Modality Chest Radio Fluoroscop y Impressions 05/25/2024 5:26 PM CHAIRMAN IMPRESSION: Insertion of right-sided apheresis chest port, [...] mg Versed Sedation time: 97 minutes ATTENDING [id number] SEDATION TIME: less than 5 minutes. Access [...] placed: BD PowerFlow apheresis port Catheter size (Mauritian): 9.6 Lumens: Single-lumen Power injectable: Yes Catheter [...] JASWINDER COOPER MD Narrative 05/25/2024 5:26 PM CHAIRMAN PROCEDURE: Venous port placement Procedural Personnel Attending [...] mg Versed Sedation time: 97 minutes ATTENDING [id number] SEDATION TIME: less than 5 minutes. Access [...] placed: BD PowerFlow apheresis port Catheter size (Mauritian): 9.6 Lumens: Single-lumen Power injectable: Yes Catheter [...] 4 Yrs of Age (05/25/2024 2:47 PM CHAIRMAN) Anatomical Region Laterality Modality Chest Radio Fluoroscop y Impressions 05/25/2024 5:23 PM CHAIRMAN IMPRESSION: Insertion of left-sided 6 Mauritian chest port, with catheter tip in the [...] mg Versed Sedation time: 97 minutes ATTENDING [id number] SEDATION TIME: 5 minutes. Access Local anesthesia [...] AngioDynamics Plastic CT Smart Port Catheter size (Mauritian): 6 Lumens: Single-lumen Power injectable: Yes Catheter [...] JASWINDER COOPER MD Narrative 05/25/2024 5:23 PM CHAIRMAN PROCEDURE: Venous port placement Procedural Personnel Attending [...] immediate complications. IMPRESSION: Insertion of left-sided 6 Mauritian chest port, with catheter tip in the [...] mg Versed Sedation time: 97 minutes ATTENDING [id number] SEDATION TIME: 5 minutes. Access Local anesthesia [...] AngioDynamics Plastic CT Smart Port Catheter size (Mauritian): 6 Lumens: Single-lumen Power injectable: Yes Catheter [...] * HCG qualitative urine (05/25/2024 12:03 PM CHAIRMAN) hCG Urine Qualitative Negative Negative JARET 05/25/2024 12:34 PM CHAIRMAN [facility] Comment:This test is for scr eening purposes. Results should be interpreted along with the clinical picture. Confirmation testing is available if warranted by ordering [id number], HCG Quantitative . Urine MID-STREAM URINE SPECIMEN / Unknown Non-blood Collection / Unknown 05/25/2024 12:03 PM CHAIRMAN 05/25/2024 12:19 PM CHAIRMAN us Jaswinder Cooper MD LAB - URINE ORDERABLES [facility] Result [facility] Core Lab [address] [facility], Room [address] [id number] documented in this encounter Visit [...] ative Pharmacoprophylaxis $New Bag 05/25/2024 12:17 PM CHAIRMAN 2 g 200 mL/hr fentaNYL (PF) (SUBLIMAZE) [...] physician., IR Intra-procedure $Given 05/25/2024 2:38 PM CHAIRMAN 25 mcg $Given 05/25/2024 2:25 PM CHAIRMAN 50 mcg $Given 05/25/2024 2:16 PM CHAIRMAN 25 mcg flumazenil (ROMAZICON) injection 0.2 mg [...] $Given by Other Clinician 05/25/2024 1:40 PM CHAIRMAN 5,000 Units heparin lock flush 100 unit/mL injection 5 mL 5 mL, Intracatheter, ONCE, On Citlali 05/25/24 at 1330, For 1 dose, Left chest port $Given by Other Clinician 05/25/2024 2:30 PM CHAIRMAN 5 mLs HYDROmorphone (DILAUDID) tablet 2 mg 2 mg, Oral, ONCE PRN, severe pain, Starting on Citlali 05/25/24 at 1507, For 1 dose $Given 05/25/2024 3:16 PM CHAIRMAN 2 mg lidocaine (LMX4) cream Topical, EVERY [...] $Given by Other Clinician 05/25/2024 1:58 PM CHAIRMAN 40 mLs midazolam (VERSED) injection 0.5-2 mg [...] dose., IR Intra-procedure $Given 05/25/2024 2:38 PM CHAIRMAN 0.5 mg $Given 05/25/2024 2:25 PM CHAIRMAN 1 mg $Given 05/25/2024 2:16 PM CHAIRMAN 0.5 mg naloxone (NARCAN) injection 0.2 mg [...] Recently Administered Medications Times are shown in CHAIRMAN. Scheduled Medication Order 05/23/2024 05/24/2024 05/25/2024 ceFAZolin [...] procedure documented in this encounter Care Teams Wood Treating Inspector Relationship Specialty Start Date End Date No Ref-Primary, Physician PCP - General 03/15/24 06/17/24 Mor Ramsey Medical Student 04/03/24 Case Samuel MD [address] [place] [address] [address], [address] [place] [address] Assigned Pediatric Specialist Provider 05/18/24 documented as of this encounter
--- OUTSIDE RECORDS SUMMARY | 2024-06-24 20:54 | XMS_ITS | Encounter Summary ---
Author Organization [facility] Address [address] [place] [address]. [place] [address] Care Team Providers Care Ladderman Name Role Phone No Ref-Primary, Physician Primary Care Provider Mor Ramsey Unavailable Unavailable Case Samuel MD Unavailable [phone] Juhi Benson RN Unavailable Unavailable Encounter Details [...] on file Legal Sex Female 8:25 AM HOMICIDE SQUAD COMMANDING OFFICER Gender Identity Not on file Sexual Orientation Not on file documented as of this encounter Plan of Treatment Not on file documented as of this encounter Goals Goal Patient Goal Type Associated Problems Recent Progress Patient-Stated? Author Pain Management General On track( 025 12:40 PM HOMICIDE SQUAD COMMANDING OFFICER) Yes Juhi Benson RN Note: Goal Statement: [...] on filedocumented in this encounter Care Teams Ladderman Relationship Specialty Start Date End Date No Ref-Primary, Physician PCP - General 03/15/24 06/17/24 Mor Ramsey Medical Student 04/03/24 Case Samuel MD [address] [place] [address] [address], [address] [place] [address] Assigned Pediatric Specialist Provider 05/18/24 Juhi Benson RN Specialty Film Casting Operator Hematology & Oncology 05/29/24 documented as of this encounter
--- OUTSIDE RECORDS SUMMARY | 2024-06-24 20:54 | XMS_ITS | Encounter Summary ---
Author Organization [facility] Address [address] [place] [address]. [place] [address] Care Team Providers Care Interlocker Name Role Phone No Ref-Primary, Physician Primary Care Provider Mor Ramsey Unavailable Unavailable Case Samuel MD Unavailable [phone] Juhi Benson RN Unavailable Unavailable Reason for Visit * Reason Comments Sickle Cell Pain Crisis Encounter Details Date Type Department Care Team (Late st Contact Info) Description 06/01/2024 11:41 PM TRANSFILL TECHNICIAN - 06/02/2024 2:35 AM [facility] Emergency [facility] Emergency Room [address] [place] [address] Noel Pinzon MD [address] [place] [address] Sickle cell pain crisis (H) Discharge Disposition: [...] on file Legal Sex Female 8:25 AM TRANSFILL TECHNICIAN Gender Identity Not on file Sexual Orientation Not on file documented as of this encounter Last Filed Vital Signs Vital Sign Reading Time Taken Comments Blood Pressure 117/69 06/02/2024 2:15 AM TRANSFILL TECHNICIAN Pulse 73 06/02/2024 2:15 AM TRANSFILL TECHNICIAN Temperature 36.7 C (98.1 F) 06/01/2024 10:44 PM TRANSFILL TECHNICIAN Respiratory Rate 15 06/02/2024 2:00 AM TRANSFILL TECHNICIAN Oxygen Saturation 95% 06/02/2024 2:15 AM TRANSFILL TECHNICIAN Inhaled Oxygen Concentration - - Weight 54.4 kg (120 lb) 06/01/2024 10:44 PM TRANSFILL TECHNICIAN Height - - Body Mass Index 22.67 05/31/2024 9:39 PM TRANSFILL TECHNICIAN documented in this encounter Discharge Instructions * Discharge Instructions* Noel Pinzon MD - 06/02/2024 1:57 AM TRANSFILL TECHNICIAN Continue outpatient follow up and cares with your specialist. spring assembler supervisor your prescription for dilaudid tomorrow and take as directed. SFILL TECHNICIAN SFILL TECHNICIAN documented in this encounter Medications at Time [...] questions were answered. Vitally stable upon discharge. SFILL TECHNICIAN SFILL TECHNICIAN * Noel Pinzon MD - 06/01/2024 11:07 PM CST Emergency Department Encounter Evaluation Date & Time: No admission date for patient encounter. CHIEF COMPLAINT: Sickle Cell Pain Crisis Triage Note:PT is coming in tonight for a sickle cell crisis. Pt has been waiting for her pharmacy to fill her RX. They stated that pharmacy might have the RX tomorrow. No OTC medication LEAD APPLICATION ARCHITECT. ED COURSE & MEDICAL DECISION MAKING: Pt [...] is provided by the patient. No speech language specialist was used. Gianna Hernández is a 29 [...] my direction. Noel Pinzon DO Emergency Medicine [facility] EMERGENCY ROOM 06/01/2024 11:07 PM Noel Pinzon MD 06/02/24 0236 SFILL TECHNICIAN * Amintaa Farley, SOFIA - 06/01/2024 10:45 PM CST PT is coming in tonight for a sickle cell crisis. Pt has been waiting for her pharmacy to fill her RX. They stated that pharmacy might have the RX tomorrow. No OTC medication LEAD APPLICATION ARCHITECT. Triage Assessment (Adult) Row Name 06/01/24 2244 Triage Assessment Airway WDL WDL Respiratory WDL Respiratory WDL WDL Skin Circulation/Temperature WDL Skin Circulation/Temperature WDL WDL Cardiac WDL Cardiac WDL WDL Peripheral/Neurovascular WDL Peripheral Neurovascular WDL WDL Cognitive/Neuro/Behavioral WDL Cognitive/Neuro/Behavioral WDL WDL SFILL TECHNICIAN documented in this encounter Plan of Treatment Not on file documented as of this encounter Goals Goal Patient Goal Type Associated Problems Recent Progress Patient-Stated? Author Pain Management General On track( 025 12:40 PM TRANSFILL TECHNICIAN) Yes Juhi Benson, RN Note: Goal Statement: [...] For 1 dose $Given 06/02/2024 1:17 AM TRANSFILL TECHNICIAN 50 mg heparin lock flush 10 unit/mL [...] each port lumen $Given 06/02/2024 2:29 AM TRANSFILL TECHNICIAN 5 mLs HYDROmorphone (DILAUDID) injection 2 mg 2 mg, Intravenous, ONCE, On Citlali 06/01/24 at 2330, For 1 dose $Given 06/02/2024 12:07 AM TRANSFILL TECHNICIAN 2 mg HYDROmorphone (DILAUDID) injection 2 mg 2 mg, Intravenous, EVERY 1 HOUR PRN, severe pain, Starting on Wed06/01/24 at 2308, For 2 doses $Given 06/02/2024 2:17 AM TRANSFILL TECHNICIAN 2 mg $Given 06/02/2024 1:16 AM TRANSFILL TECHNICIAN 2 mg lactated ringers BOLUS 1,000 mL Intravenous, 1,000 mL, ONCE, On Citlali 06/01/24 at 2330, For 1 dose $New Bag 06/02/2024 12:06 AM TRANSFILL TECHNICIAN 1,000 mLs ondansetron (ZOFRAN) injection 8 mg 8 mg, Intravenous, ONCE, Administer over 2-5 Minutes, On Citlali 06/01/24 at 2330, For 1 dose $Given 06/02/2024 12:06 AM TRANSFILL TECHNICIAN 8 mg sodium chloride (PF) 0.9% PF [...] each port lumen. $Given 06/02/2024 12:12 AM TRANSFILL TECHNICIAN 20 mLs documented in this encounter Active and Recently Administered Medications Times are shown in TRANSFILL TECHNICIAN. Scheduled Medication Order 05/31/2024 06/01/2024 06/02/2024 diphenhydrAMINE [...] lumen documented in this encounter Care Teams Interlocker Relationship Specialty Start Date End Date No Ref-Primary, Physician PCP - General 03/15/24 06/17/24 Mor Ramsey Medical Student 04/03/24 Case Samuel MD [address] [place] [address] [address], [address] [place] [address] Assigned Pediatric Specialist Provider 05/18/24 Juhi Benson, RN Specialty Reports Analysis Manager Hematology & Oncology 05/29/24 documented as of this encounter
--- OUTSIDE RECORDS SUMMARY | 2024-06-24 20:54 | XMS_ITS | Encounter Summary ---
Author Organization [place] Address [address] [place] [id number] Care Team Providers Care Rocket Test Fire Worker Name Role Phone No Ref-Primary, Physician Primary Care Provider Mor Ramsey Unavailable Unavailable Case Samuel MD Unavailable [phone] Reason for Visit * Reason Comments Abdominal Pain ULQ Encounter Details Date Type Department Care Team (Late st Contact Info) Description 05/23/2024 9:03 PM HIGH HEEL BUILDER - 05/23/2024 11:37 PM [facility] Emergency [facility] Emergency Room [facility] [place] [address] Marilia Summers MD [address] [place] [id number] Sickle cell pain crisis (H); Leukocytosis, unspecified [...] on file Legal Sex Female 8:25 AM HIGH HEEL BUILDER Gender Identity Not on file Sexual Orientation Not on file documented as of this encounter Last Filed Vital Signs Vital Sign Reading Time Taken Comments Blood Pressure 123/71 05/23/2024 9:53 PM HIGH HEEL BUILDER Pulse 95 05/23/2024 9:53 PM HIGH HEEL BUILDER Temperature 37.7 C (99.9 F) 05/23/2024 4:48 PM HIGH HEEL BUILDER Respiratory Rate 18 05/23/2024 4:48 PM HIGH HEEL BUILDER Oxygen Saturation 98% 05/23/2024 9:53 PM HIGH HEEL BUILDER Inhaled Oxygen Concentration - - Weight 51.7 kg (114 lb) 05/23/2024 4:48 PM HIGH HEEL BUILDER Height 154.9 cm (5' 1) 05/23/2024 4:48 PM HIGH HEEL BUILDER Body Mass Index 21.54 05/23/2024 4:48 PM HIGH HEEL BUILDER documented in this encounter Discharge Instructions * Discharge Instructions* Marilia Summers MD - 05/23/2024 10:34 PM HIGH HEEL BUILDER Keep your appointment for your port in 2 days. Continue to work with oncology/hematology on pain control. The Lidoderm patch helps with the area of pain underneath your left breast on the chest wall, you can get [id number] muscle pain patches that have the same numbing medicine in them and put it on for 12 hours at a time to help with your discomfort. Obviously return to the emergency department as needed if you are having difficulty with breathing. HEEL BUILDER * Attachments The following attachments cannot be sent through Care Everywhere. * Sickle Cell Crisis ([place]serr[place]) documented in this encounter Medications at Time [...] /chest pain. Seen for similar last night HEEL BUILDER * Marilia Summers MD - 05/23/2024 6:24 [...] she notes the plan discussed with the oncologist/poultry farmer meat is to do 3 times a week [...] of chest pain. Misti moved [facility] a few[facility] ago and since that time has been seen in the emergency department greater than 40 times. She was seen here yesterday, May 21, 2019, , , , , 18, 13th, 12th, 11th, 10th, eighth, seventh twice, on the sixth she was seen by oncology at the [facility] forthe [facility], also in the [...] CT CHEST PULMONARY EMBOLISM W CONTRAST LOCATION: [facility] DATE: 05/23/2024 INDICATION: patient with sickle cell. acute chest pain similar to pe in the past. COMPARISON: Chest x-ray 05/22/2024, CTA chest 05/04/2024 and 03/15/2024. Report of CT chest from [facility] [facility] from 03/13/2023 is also available. TECHNIQUE: [...] Rate 77 BPM Atrial Rate 77 BPM AR Interval 160 ms QRS Duration 82 ms QT 362 ms QTc 409 ms P [place] 61 degrees R AXIS 92 degrees T [place] 49 degrees Interpretation ECG Sinus rhythm Rightward axis Borderline ECG When compared with ECG of 22-May-2024 15:14, Nonspecific T wave abnormality no longer evident in Inferior leads Confirmed by SEE ED PROVIDER NOTE FOR, ECG INTERPRETATION (4000), manuscript editor SELMA GARRISON ([id number]) on 05/23/2024 7:30:33 PM ECG: Performed at: 1854 Impression: nsr rate of 77, wandering baseline somewhat limits exam. R axis. Pr 160ms, qrs 82ms, qtc 409ms, prt axes 61 92 49. Compared to 05/22/[address] segments in inferior limb leads no longer present. I have independently reviewed and interpreted the EKS(s) documented above PROCEDURES: Procedures: [facility] Documentation Medical Decision Making Obtained supplemental [...] other provider:Did you involve another provider (senior market intelligence consultant, , pharmacy, etc.)?: No Discharge. I prescribed additional prescription strength medication(s) as charted. See documentation for any additional details. MIPS: Not Applicable Marilia Summers MD Emergency Medicine [facility] EMERGENCY ROOM Marilia Summers MD 05/23/24 1118 HEEL BUILDER * Carmen Elkins RN - 05/23/2024 4:51 PM CST Pt arrives with c/o abdominal pain (ULQ). Pt seen here yesterday for the same pain and sickle cell pain. Reports feeling better when she left yesterday but now pain is back. Temp: 99.9 HEEL BUILDER documented in this encounter Plan of Treatment Not on file documented as of this encounter Goals Goal Patient Goal Type Associated Problems Recent Progress Patient-Stated? Author Pain Management General On track( 025 12:40 PM HIGH HEEL BUILDER) Yes Juhi Benson, SOFIA Note: Goal Statement: [...] EMBOLISM W CONTRAST STAT 05/23/2024 9:33 PM HIGH HEEL BUILDER TROPONIN T, HIGH SENSITIVITY STAT 05/23/2024 9:02 PM HIGH HEEL BUILDER RETICULOCYTE COUNT STAT 05/23/2024 9: 02 PM HIGH HEEL BUILDER N TERMINAL PRO BNP OUTPATIENT STAT 05/23/2024 9:02 PM HIGH HEEL BUILDER CBC WITH PLATELETS STAT 05/23/2024 9: 02 PM HIGH HEEL BUILDER ECG 12-LEAD WITH MUSE SJN,SJO,WWH STAT 05/23/2024 6:54 PM HIGH HEEL BUILDER documented in this encounter Results * CT Chest Pulmonary Embolism w Contrast (05/23/2024 9:33 PM HIGH HEEL BUILDER) Anatomical Region Laterality Modality Chest, SUBRAD CT BODY, UMP CT CHEST Computed Tomography 05/23/2024 9:33 PM HIGH HEEL BUILDER Impressions 05/23/2024 10:12 PM HIGH HEEL BUILDER IMPRESSION: 1. Bilateral pulmonary nodules stable since [...] as noted above. Narrative 05/23/2024 10:12 PM HIGH HEEL BUILDER EXAM: CT CHEST PULMONARY EMBOLISM W CONTRAST LOCATION: [facility] DATE: 05/23/2024 INDICATION: patient with sickle cell. acute chest pain similar to pe in the past. COMPARISON: Chest x-ray 05/22/2024, CTA chest 05/04/2024 and 03/15/2024. Report of CT chest from [facility] from 03/13/2023 is also available. TECHNIQUE: CT [...] CT CHEST PULMONARY EMBOLISM W CONTRAST LOCATION: [facility] DATE: 05/23/2024 INDICATION: patient with sickle cell. acute chest pain similar to pe inthe past. COMPARISON: Chest x-ray 05/22/2024, CTA chest 05/04/2024 and 03/15/2024.Report of CT chest from [facility] from 03/13/2023 is alsoavailable. TECHNIQUE: CT chest [...] terminal pro BNP outpatient (05/23/2024 9:02 PM HIGH HEEL BUILDER) [facility] N Terminal Pro BNP Outpatient [id number] - 450 pg/mL 05/23/2024 9:39 PM HIGH HEEL BUILDER [facility] Comment: Reference range shown and [...] Unknown Venipuncture / Unknown 05/23/2024 9:02 PM HIGH HEEL BUILDER 05/23/2024 9:10 PM HIGH HEEL BUILDER Marilia Summers MD LAB - BLOOD ORDERABLES Final Result Performing Organization Address City/[facility]/ZIP Co de Phone Number [facility] [address] [place] [address], [facility] * Troponin T, High Sensitivity (05/23/2024 9:02 PM HIGH HEEL BUILDER) Troponin T, High Sensitivity <6 <=14 ng/L 05/23/2024 9:39 PM HIGH HEEL BUILDER [facility] Comment: Either a High Sensitivity [...] Unknown Venipuncture / Unknown 05/23/2024 9:02 PM HIGH HEEL BUILDER 05/23/2024 9:10 PM HIGH HEEL BUILDER Marilia Summers MD LAB - BLOOD ORDERABLES Final Result Performing Organization Address [facility] Co de Phone Number [facility] [address] [place] [address], [facility] * (ABNORMAL) Reticulocyte count (05/23/2024 9:02 PM HIGH HEEL BUILDER) % Reticulocyte 28.1(H) 0.5 - 2.0 % 05/23/2024 9:35 PM HIGH HEEL BUILDER [facility] Absolute Reticulocyte 0.698(H) 0.025 - 0.095 10e6/uL 05/23/2024 9:35 PM HIGH HEEL BUILDER [facility] Blood BLOOD SPECIMEN / Unknown Venipuncture / Unknown 05/23/2024 9:02 PM HIGH HEEL BUILDER 05/23/2024 9:10 PM HIGH HEEL BUILDER us Marilia Summers MD LAB - BLOOD ORDERABLES Final Result [facility] [address] [place] [address], [facility] * (ABNORMAL) CBC (+ platelets, no diff) (05/23/2024 9:02 PM HIGH HEEL BUILDER) WBC Count 17.2(H) 4.0 - 11.0 10e3/uL 05/23/2024 9:18 PM [facility] RBC Count 2.45(L) 3.80 - 5.20 10e6/uL 05/23/2024 9:18 PM [facility] Hemoglobin 7.9(L) 11.7 - 15.7 g/dL 05/23/2024 9:18 PM [facility] Hematocrit 22.4(L) 35.0 - 47.0 % 05/23/2024 9:18 PM [facility] MCV 91 78 - 100 fL 05/23/2024 9:18 PM [facility] MCH 32.2 26.5 - 33.0 pg 05/23/2024 9:18 PM [facility] MCHC 35.3 31.5 - 36.5 g/dL 05/23/2024 9:18 PM [facility] RDW 24.4(H) 10.0 - 15.0 % 05/23/2024 9:18 PM [facility] Platelet Count 519(H) 150 - 450 10e3/uL 05/23/2024 9:18 PM [facility] Blood BLOOD SPECIMEN / Unknown Venipuncture / Unknown 05/23/2024 9:02 PM HIGH HEEL BUILDER 05/23/2024 9:10 PM HIGH HEEL BUILDER us Marilia Summers MD LAB - BLOOD ORDERABLES Final Result [facility] [address] [place] [address], [facility] * ECG 12-LEAD WITH MUSE (LHE) (05/23/2024 6:54 PM HIGH HEEL BUILDER) Systolic Blood Pressure mmHg RADIOLOGY RESULTS Diastolic Blood Pressure mmHg RADIOLOGY RESULTS Ventricular Rate 77 BPM RAD IOLOGY RESULTS Atrial Rate 77 BPM RADIOLOG Y RESULTS AR Interval 160 ms RADIOLOG Y RESULTS QRS Duration 82 ms RADIOLO GY RESULTS QT 362 ms RADIOLOGY RESULTS QTc 409 ms RADIOLOGY RESULTS P [place] 61 degrees RADIOLOGY RESULTS R AXIS 92 degrees RADIOLOGY RESULTS T [place] 49 degrees RADIOLOGY RESULTS Interpretation ECG Sinus rhythm Rightward axis Borderline ECG When compared with ECG of 22-May-2024 15:14, Nonspecific T wave abnormality no longer evident in Inferior leads Confirmed by SEE ED PROVIDER NOTE FOR, ECG INTERPRETATION (4000), manuscript editor SELMA GARRISON ([id number]) on 05/23/2024 7:30:33 PM RADIOLOGY RESULTS 05/23/2024 6:54 PM HIGH HEEL BUILDER 05/23/2024 7:30 PM HIGH HEEL BUILDER us Marilia Summers MD ECG ORDERABLES Edited [...] For 1 dose $Given 05/23/2024 10:03 PM HIGH HEEL BUILDER 50 mg HYDROmorphone (DILAUDID) injection 2 mg 2 mg, Intravenous, EVERY 1 HOUR PRN, moderate pain, Starting on Wed05/23/24 at 2115, For 2 doses $Given 05/23/2024 10:21 PM HIGH HEEL BUILDER 2 mg $Given 05/23/2024 9:18 PM HIGH HEEL BUILDER 2 mg HYDROmorphone (DILAUDID) injection 2 mg 2 mg, Intravenous, ONCE, On Wed05/23/24 at 2330, For 1 dose $Given 05/23/2024 11:20 PM HIGH HEEL BUILDER 2 mg iopamidol (ISOVUE-370) solution 75 mL 75 mL, Intravenous, ONCE, On Wed05/23/24 at 2130, For 1 dose $Given 05/23/2024 9:33 PM HIGH HEEL BUILDER 75 mLs lactated ringers BOLUS 1,000 mL Intravenous, 1,000 mL, ONCE, On Wed05/23/24 at 2200, For 1 dose $New Bag 05/23/2024 10:05 PM HIGH HEEL BUILDER 1,000 mLs Lidocaine (LIDOCARE) 4 % Patch [...] post injection. $Patch/Med Applied 05/23/2024 10:53 PM HIGH HEEL BUILDER 1 patch Left Chest ondansetron (ZOFRAN) injection 8 mg 8 mg, Intravenous, ONCE PRN, nausea, vomiting, Administer over 2-5 Minutes, Starting on Wed05/23/24 at 2159, For 1 dose $Given 05/23/2024 10:07 PM HIGH HEEL BUILDER 8 mg documented in this encounter Active and Recently Administered Medications Times are shown in HIGH HEEL BUILDER. Scheduled Medication Order 05/21/2024 05/22/2024 05/23/2024 diphenhydrAMINE [...] RN) documented in this encounter Care Teams Rocket Test Fire Worker Relationship Specialty Start Date End Date No Ref-Primary, Physician PCP - General 03/15/24 06/17/24 Mor Ramsey Medical Student 04/03/24 Case Samuel MD [address] [place] [address], [address] [place] [address] Assigned Pediatric Specialist Provider 05/18/24 documented as of this encounter
--- OUTSIDE RECORDS SUMMARY | 2024-06-24 20:54 | XMS_ITS | Encounter Summary ---
Author Organization [facility] Address [address] [place] [address]. [place] [address] Care Team Providers Care Rug Cleaner Hand Name Role Phone No Ref-Primary, Physician Primary Care Provider Mor Ramsey Unavailable Unavailable Case Samuel MD Unavailable [phone] Reason for Visit * Reason Comments Chest Pain Encounter Details Date Type Department Care Team (Late st Contact Info) Description 05/27/2024 11:58 AM COMPLIANCE MONITOR - 05/27/2024 6:07 PM [facility] Emergency [facility] Emergency Room [facility] [place] [phone] Blas Mcclellan MD [address] [place] [address] Marly Gross, DO [facility] [address] [place] [id number] Sickle cell disease with crisis (H) Discharge [...] on file Legal Sex Female 8:25 AM COMPLIANCE MONITOR Gender Identity Not on file Sexual Orientation Not on file documented as of this encounter Last Filed Vital Signs Vital Sign Reading Time Taken Comments Blood Pressure 123/76 05/27/2024 5:15 PM COMPLIANCE MONITOR Pulse 97 05/27/2024 5:15 PM COMPLIANCE MONITOR Temperature 36.9 C (98.5 F) 05/27/2024 11:57 AM COMPLIANCE MONITOR Respiratory Rate 24 05/27/2024 5:37 PM COMPLIANCE MONITOR Oxygen Saturation 96% 05/27/2024 5:15 PM COMPLIANCE MONITOR Inhaled Oxygen Concentration - - Weight 51.7 kg (114 lb) 05/27/2024 11:56 AM COMPLIANCE MONITOR Height 154.9 cm (5' 1) 05/27/2024 11:56 AM COMPLIANCE MONITOR Body Mass Index 21.54 05/27/2024 11:56 AM COMPLIANCE MONITOR documented in this encounter Discharge Instructions * Attachments The following attachments cannot be sent through Care Everywhere. * Sickle Cell Crisis (Citizen Of [place]) documented in this encounter Medications at Time [...] Hemoglobin 7.1. [facility] Additional ED Course Timeline: 5:01 PM I introduced myself to the patient. She would like her last dose of dilaudid per care plan and is comfortable with being discharged home afterwards. She has follow up with her [employer] Cutter Helper in2 days which I encouraged her to [...] on file Marly Gross DO Emergency Medicine [facility] EMERGENCY ROOM [address] [facility] [phone] Marly Gross DO 05/27/24 2684 LIANCE MONITOR * Blas Mcclellan MD - 05/27/2024 12:32 [...] reviewed?: Documented in chart and Outpatient Record: [facility] ED 05/23/2024 and [facility] visit 05/25/2024 Care impacted by chronic illness:Documented in Chart Did you consider but not order tests?: Work up considered but not performed and documented in chart, if applicable Did you interpret images independently?: Independent interpretation of ECG and images noted in documentation, when applicable. Consultation discussion with other provider:Did you involve another provider (bilingual sales consultant, , pharmacy, etc.)?: No Admission considered. 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 Per chart review, patient was seen by oncology at [facility] on 05/01/2024 for new outpatient hematology visit for initiation of care for sickle cell disease. [facility] [place] [place] [facility]. She reported [...] had 2 ports placed on 05/25/[address] [facility]. Apheresis on the right, 6 welsh smart port on the left. Patient tolerated [...] Currently Drug use: Never Social History Narrative [id number] mom. Recently moved to [place] from [place], [place]. She is 1 of 9 [...] Social Connections: Socially Integrated (03/28/2024) [facility] Do you often [...] was found. Rate: 91 bpm Rhythm: Sinus [place]: 39 62 23 FL Interval: 142 ms QRS Interval: 80 [...] my direction. Blas Mcclellan M.D. Emergency Medicine [facility] EMERGENCY ROOM [address] [place] [phone] Dept: [phone] Blas Mcclellan MD 05/27/24 1507 LIANCE MONITOR * Yanely Avendano RN - 05/27/2024 12:02 [...] WDL WDL Cognitive/Neuro/Behavioral WDL Cognitive/Neuro/Behavioral WDL WDL LIANCE MONITOR documented in this encounter Plan of Treatment Not on file documented as of this encounter Goals Goal Patient Goal Type Associated Problems Recent Progress Patient-Stated? Author Pain Management General On track( 025 12:40 PM COMPLIANCE MONITOR) Yes Juhi Benson, RN Note: Goal Statement: [...] MANUAL DIFFERENTIAL STAT 05/27/2024 3 :13 PM COMPLIANCE MONITOR CBC WITH PLATELETS AND DIFFERENTIAL STAT 05/27/2024 3:13 PM COMPLIANCE MONITOR CBC WITH PLATELETS & DIFFERENTIAL STAT 05/27/2024 3:13 PM COMPLIANCE MONITOR RETICULOCYTE COUNT STAT 05/27/2024 3: 13 PM COMPLIANCE MONITOR XR CHEST 2 VIEWS STAT 05/27/2024 2:57 PM COMPLIANCE MONITOR COMPREHENSIVE METABOLIC PANEL STAT 05/27/2024 2:30 PM COMPLIANCE MONITOR ECG 12-LEAD WITH MUSE [facility]JN,SJO,[facility] STAT 05/27/2024 12:12 PM COMPLIANCE MONITOR documented in this encounter Results * (ABNORMAL) Manual Differential (05/27/2024 3:13 PM COMPLIANCE MONITOR) Pathologist [facility] % Neutrophils 71 % JARET 05/27/2024 3:51 PM COMPLIANCE MONITOR [facility] % Lymphocytes 20 % JARET 05/27/2024 3:51 PM COMPLIANCE MONITOR [facility] % Monocytes 9 % JARET 05/27/2024 3:51 PM [facility] % Eosinophils 0 % JARET 05/27/2024 3:51 PM [facility] % Basophils 0 % JARET 05/27/2024 3:51 PM [facility] Absolute Neutrophils 11.1(H) 1.6 - 8.3 10e3/uL JARET 05/27/2024 3:51 PM [facility] Absolute Lymphocytes 3.1 0.8 - 5.3 10e3/uL JARET 05/27/2024 3:51 PM [facility] Absolute Monocytes 1.4(H) 0.0 - 1.3 10e3/uL JARET 05/27/2024 3:51 PM [facility] Absolute Eosinophils 0.0 0.0 - 0.7 10e3/uL JARET 05/27/2024 3:51 PM COMPLIANCE MONITOR [facility] Absolute Basophils 0.0 0.0 - 0.2 10e3/uL JARET 05/27/2024 3:51 PM [facility] RBC Morphology Confirmed RBC Indices JARET 05/27/2024 3:51 PM [facility] Platelet Assessment Automated Count Confirmed. Platelet morphology is normal. Automated Count Confirmed. Platelet morphology is normal. JARET 05/27/2024 3:51 PM [facility] Acanthocytes Slight(A) None Seen JARET 05/27/2024 3:51 PM [facility] Elliptocytes Slight(A) None Seen JARET 05/27/2024 3:51 PM [facility] RBC Fragments Slight(A) None Seen JARET 05/27/2024 3:51 PM [facility] Polychromasia Slight(A) None Seen JARET 05/27/2024 3:51 PM [facility] Sickle Cells Moderate(A) None Seen JARET 05/27/2024 3:51 PM [facility] Target Cells Slight(A) None Seen JARET 05/27/2024 3:51 PM [facility] Blood (Portacath) Venipuncture / Unknown 05/27/2024 3:13 PM COMPLIANCE MONITOR 05/27/2024 3:15 PM [facility] Blas Mcclellan MD LAB - BLOOD ORDERABLES Final Result [facility] [address] [place] [address], [facility] * (ABNORMAL) CBC with platelets and differential (05/27/2024 3:13 PM COMPLIANCE MONITOR) WBC Count 15.7(H) 4.0 - 11.0 10e3/uL 05/27/2024 3:48 PM [facility] RBC Count 2.21(L) 3.80 - 5.20 10e6/uL 05/27/2024 3:48 PM [facility] Hemoglobin 7.1(L) 11.7 - 15.7 g/dL 05/27/2024 3:48 PM [facility] Hematocrit 20.2(L) 35.0 - 47.0 % 05/27/2024 3:48 PM [facility] MCV 91 78 - 100 fL 05/27/2024 3:48 PM [facility] MCH 32.1 26.5 - 33.0 pg 05/27/2024 3:48 PM [facility] MCHC 35.1 31.5 - 36.5 g/dL 05/27/2024 3:48 PM [facility] RDW 23.0(H) 10.0 - 15.0 % 05/27/2024 3:48 PM [facility] Platelet Count 429 150 - 450 10e3/uL 05/27/2024 3:48 PM [facility] Blood (Portacath) Venipuncture / Unknown 05/27/2024 3:13 PM COMPLIANCE MONITOR 05/27/2024 3:15 PM [facility] us Blas Mcclellan MD LAB - BLOOD ORDERABLES Final Result [facility] [address] [place] [address], [facility] * (ABNORMAL) Reticulocyte count (05/27/2024 3:13 PM COMPLIANCE MONITOR) % Reticulocyte 28.0(H) 0.5 - 2.0 % 05/27/2024 3:19 PM COMPLIANCE MONITOR [facility] Absolute Reticulocyte 0.619(H) 0.025 - 0.095 10e6/uL 05/27/2024 3:19 PM COMPLIANCE MONITOR [facility] Blood (Portacath) Venipuncture / Unknown 05/27/2024 3:13 PM COMPLIANCE MONITOR 05/27/2024 3:15 PM COMPLIANCE MONITOR Blas Mcclellan MD LAB - BLOOD ORDERABLES Final Result [facility] [address] [facility] [place] [address], [facility] * Chest XR, PA & LAT (05/27/2024 2:57 PM COMPLIANCE MONITOR) Anatomical Region Laterality Modality Chest Digital Radiogra phy 05/27/2024 2:57 PM COMPLIANCE MONITOR Impressions 05/27/2024 3:03 PM COMPLIANCE MONITOR IMPRESSION: New right and left chest ports, with catheter tips at the superior cavoatrial junction. Unchanged patchy opacities in the right greater mid to lower lungs. No consolidation or pleural effusion. Stable mediastinal silhouette. Narrative 05/27/2024 3:03 PM COMPLIANCE MONITOR EXAM: XR CHEST 2 VIEWS LOCATION: [facility] DATE: 05/27/2024 INDICATION: chest pain, sickle cell, bilateral port placement 3 days ago COMPARISON: 05/22/2024 Procedure Note Rachel Joe MD - 05/27/2024 EXAM: XR CHEST 2 VIEWS LOCATION: [facility] DATE: 05/27/2024 INDICATION: chest pain, sickle cell, [...] (ABNORMAL) Comprehensive metabolic panel (05/27/2024 2:30 PM COMPLIANCE MONITOR) [facility] Sodium 136 135 - 145 mmol/L 05/27/2024 2:59 PM [facility] Potassium 4.8 3.4 - 5.3 mmol/L 05/27/2024 2:59 PM [facility] Carbon Dioxide (CO2) 18(L) 22 - 29 mmol/L 05/27/2024 2:59 PM [facility] Anion Gap 12 7 - 15 mmol/L 05/27/2024 2:59 PM [facility] Urea Nitrogen 8.4 6.0 - 20.0 mg/dL 05/27/2024 2:59 PM [facility] Creatinine 0.67 0.51 - 0.95 mg/dL 05/27/2024 2:59 PM [facility] GFR Estimate >90 >60 mL/min/1.7 3m2 05/27/2024 2:59 PM [facility] Comment:eGFR calculated us2020 CKD-EPI equation. Calcium 9.3 8.8 - 10.4 mg/dL 05/27/2024 2:59 PM [facility] Chloride 106 98 - 107 mmol/L 05/27/2024 2:59 PM [facility] Glucose 97 70 - 99 mg/dL 05/27/2024 2:59 PM [facility] Alkaline Phosphatase 94 40 - 150 U/L 05/27/2024 2:59 PM [facility] AST 51(H) 0 - 45 U/L 05/27/2024 2:59 PM [facility] ALT 19 0 - 50 U/L 05/27/2024 2:59 PM [facility] Protein Total 7.7 6.4 - 8.3 g/dL 05/27/2024 2:59 PM [facility] Albumin 4.4 3.5 - 5.2 g/dL 05/27/2024 2:59 PM [facility] Bilirubin Total 2.7(H) <=1.2 mg/dL 05/27/2024 2:59 PM [facility] Blood VENOUS LINE / Unknown Venipuncture / Unknown 05/27/2024 2:30 PM COMPLIANCE MONITOR 05/27/2024 2:36 PM [facility] Blas Mcclellan MD LAB - BLOOD ORDERABLES Final Result [facility] [address] [facility] [place] [address], [facility] * ECG 12-LEAD WITH MUSE (LHE) (05/27/2024 12:12 PM COMPLIANCE MONITOR) Systolic Blood Pressure 110 mmHg RADIOLOGY RESULTS Diastolic Blood Pressure 63 mmHg RADIOLOGY RESULTS Ventricular Rate 91 BPM RAD IOLOGY RESULTS Atrial Rate 91 BPM RADIOLOG Y RESULTS FL Interval 142 ms RADIOLOG Y RESULTS QRS Duration 80 ms RADIOLO GY RESULTS QT 352 ms RADIOLOGY RESULTS QTc 432 ms RADIOLOGY RESULTS P [place] 39 degrees RADIOLOGY RESULTS R AXIS 62 degrees RADIOLOGY RESULTS T [place] 23 degrees RADIOLOGY RESULTS Interpretation ECG Sinus rhythm Nonspecific T wave abnormality Abnormal ECG When compared with ECG of 23-May-2024 18:54, Nonspecific T wave abnormality now evident in Inferior leads Nonspecific T wave abnormality now evident in Anterior leads Confirmed by SEE ED PROVIDER NOTE FOR, ECG INTERPRETATION (4000), editor continuity and script BEN PRAKASH ([id number]) on 05/27/2024 12:22:37 PM RADIOLOGY RESULTS 05/27/2024 12:1 2 PM COMPLIANCE MONITOR 05/27/2024 12:22 PM COMPLIANCE MONITOR us Blas Mcclellan MD ECG ORDERABLES Edited [...] For 1 dose $Given 05/27/2024 4:34 PM COMPLIANCE MONITOR 25 mg heparin lock flush 100 unit/mL injection 5 mL 5 mL, Intracatheter, ONCE, On 05/27/24 at 1730, For 1 dose $Given 05/27/2024 5:33 PM COMPLIANCE MONITOR 5 mLs HYDROmorphone (DILAUDID) injection 2 mg 2 mg, Intravenous, ONCE, On 05/27/24 at 1300, For 1 dose $Given 05/27/2024 2:43 PM COMPLIANCE MONITOR 2 mg HYDROmorphone (DILAUDID) injection 2 mg 2 mg, Intravenous, ONCE, On 05/27/24 at 1630, For 1 dose $Given 05/27/2024 4:37 PM COMPLIANCE MONITOR 2 mg HYDROmorphone (DILAUDID) injection 2 mg 2 mg, Intravenous, ONCE, On 05/27/24 at 1730, For 1 dose $Given 05/27/2024 5:09 PM COMPLIANCE MONITOR 2 mg lactated ringers BOLUS 1,000 mL Intravenous, 1,000 mL, ONCE, On 05/27/24 at 1300, For 1 dose $New Bag 05/27/2024 2:33 PM COMPLIANCE MONITOR 1,000 mLs ondansetron (ZOFRAN) injection 8 mg 8 mg, Intravenous, ONCE, Administer over 2-5 Minutes, On 05/27/24 at 1300, For 1 dose $Given 05/27/2024 2:40 PM COMPLIANCE MONITOR 8 mg documented in this encounter Active and Recently Administered Medications Times are shown in COMPLIANCE MONITOR. Scheduled Medication Order 05/25/2024 05/26/2024 05/27/2024 diphenhydrAMINE [...] SOFIA) documented in this encounter Care Teams Rug Cleaner Hand Relationship Specialty Start Date End Date No Ref-Primary, Physician PCP - General 03/15/24 06/17/24 Mor Ramsey Medical Student 04/03/24 Case Samuel MD [address] [place] [address], [address] [place] [address] Assigned Pediatric Specialist Provider 05/18/24 documented as of this encounter
--- OUTSIDE RECORDS SUMMARY | 2024-06-24 20:54 | XMS_ITS | Encounter Summary ---
Author Organization [place] Address [address] [place] [address]. [place] [address] Care Team Providers Care Contract Officer Name Role Phone No Ref-Primary, Physician Primary Care Provider Mor Ramsey Unavailable Unavailable Case Samuel MD Unavailable [phone] Juhi Benson RN Unavailable Unavailable Reason for Visit * Reason Comments Sickle Cell Pain Crisis Encounter Details Date Type Department Care Team (Late st Contact Info) Description 05/28/2024 11:56 PM SR. DIRECTOR PRODUCT MANAGEMENT - 05/29/2024 3:54 AM SR. DIRECTOR PRODUCT MANAGEMENT Emergency [facility] Emergency Room [facility] [place] [address] Lenin Smith MD [address] [place] [address] [id number] Sickle cell disease with crisis (H) Discharge [...] on file Legal Sex Female 8:25 AM SR. DIRECTOR PRODUCT MANAGEMENT Gender Identity Not on file Sexual Orientation Not on file documented as of this encounter Last Filed Vital Signs Vital Sign Reading Time Taken Comments Blood Pressure 123/66 05/29/2024 3:15 AM SR. DIRECTOR PRODUCT MANAGEMENT Pulse 87 05/29/2024 3:15 AM SR. DIRECTOR PRODUCT MANAGEMENT Temperature 36.6 C (97.9 F) 05/29/2024 12:01 AM SR. DIRECTOR PRODUCT MANAGEMENT Respiratory Rate 18 05/29/2024 12:01 AM SR. DIRECTOR PRODUCT MANAGEMENT Oxygen Saturation 93% 05/29/2024 3:15 AM SR. DIRECTOR PRODUCT MANAGEMENT Inhaled Oxygen Concentration - - Weight 51.7 kg (114 lb) 05/29/2024 12:01 AM SR. DIRECTOR PRODUCT MANAGEMENT Height 154.9 cm (5' 1) 05/29/2024 12:01 AM SR. DIRECTOR PRODUCT MANAGEMENT Body Mass Index 21.54 05/29/2024 12:01 AM SR. DIRECTOR PRODUCT MANAGEMENT documented in this encounter Discharge Instructions * Attachments The following attachments cannot be sent through Care Everywhere. * Sickle Cell Crisis (Kyrgyz) documented in this encounter Medications at Time [...] time. Patient comfortable and agrees with plan. . DIRECTOR PRODUCT MANAGEMENT * Lenin Smith MD - 05/29/2024 12:17 [...] go home. Has an appointment with her coremaker experimental today. Willfollow-up then. No indication for transfusion [...] with other provider:Did you involve another provider (fashion consultant, , pharmacy, etc.)?: No Discharge. No [...] information was obtained from: Patient Use of Senior Branch Manager: N/A Gianna Hernández is a 29 [...] daughters second birthdayand they walked around the [facility], patient believes she might have over exerted [...] home in stable condition. 05/25 Admission to [facility] for bilateral port placements with apheresis port on right and smart port on left. 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 Recently moved to [place] from [place], [place]. She is 1 of 9 [...] Social Connections: Socially Integrated (03/28/2024) Received from [facility] [employer] [facility] Social Connections Do you often [...] I, Lenin Smith MD attest that Gisele Bradnt is acting in a scribe capacity, has observed my performance of the services and has documented them in accordance with my direction. Lenin Smith M.D. Emergency Medicine [facility] EMERGENCY ROOM [facility] [id number] Dept: [phone] Lenin Smith MD 05/29/24 0412 . DIRECTOR PRODUCT MANAGEMENT * Moy Stewart RN - 05/29/2024 12:02 [...] WDL WDL Cognitive/Neuro/Behavioral WDL Cognitive/Neuro/Behavioral WDL WDL . DIRECTOR PRODUCT MANAGEMENT documented in this encounter Plan of Treatment Not on file documented as of this encounter Goals Goal Patient Goal Type Associated Problems Recent Progress Patient-Stated? Author Pain Management General On track( 025 12:40 PM SR. DIRECTOR PRODUCT MANAGEMENT) Yes Juhi Benson, SOFIA Note: Goal Statement: [...] MANUAL DIFFERENTIAL STAT 05/29/2024 1 2:53 AM SR. DIRECTOR PRODUCT MANAGEMENT CBC WITH PLATELETS AND DIFFERENTIAL STAT 05/29/2024 12:53 AM SR. DIRECTOR PRODUCT MANAGEMENT CBC WITH PLATELETS & DIFFERENTIAL STAT 05/29/2024 12:53 AM SR. DIRECTOR PRODUCT MANAGEMENT RETICULOCYTE COUNT STAT 05/29/2024 12 :53 AM SR. DIRECTOR PRODUCT MANAGEMENT documented in this encounter Results * (ABNORMAL) Manual Differential (05/29/2024 12:53 AM SR. DIRECTOR PRODUCT MANAGEMENT) % Neutrophils 54 % JARET 05/29/2024 1:58 AM SR. DIRECTOR PRODUCT MANAGEMENT [facility] % Lymphocytes 34 % JARET 05/29/2024 1:58 AM SR. DIRECTOR PRODUCT MANAGEMENT [facility] % Monocytes 10 % JARET 05/29/2024 1:58 AM SR. DIRECTOR PRODUCT MANAGEMENT [facility] % Eosinophils 1 % JARET 05/29/2024 1:58 AM [facility] % Basophils 1 % JARET 05/29/2024 1:58 AM [facility] Absolute Neutrophils 8.4(H) 1.6 - 8.3 10e3/uL JARET 05/29/2024 1:58 AM [facility] Absolute Lymphocytes 5.3 0.8 - 5.3 10e3/uL JARET 05/29/2024 1:58 AM [facility] Absolute Monocytes 1.6(H) 0.0 - 1.3 10e3/uL JARET 05/29/2024 1:58 AM [facility] Absolute Eosinophils 0.2 0.0 - 0.7 10e3/uL JARET 05/29/2024 1:58 AM [facility] Absolute Basophils 0.2 0.0 - 0.2 10e3/uL JARET 05/29/2024 1:58 AM [facility] NRBCs per 100 WBC 3 % JARET 05/29/2024 1:58 AM [facility] Absolute NRBCs 0.5 10e3/uL JARET 05/29/2024 1:58 AM [facility] RBC Morphology Confirmed RBC Indices JARET 05/29/2024 1:58 AM [facility] Platelet Assessment Automated Count Confirmed. Platelet morphology is normal. Automated Count Confirmed. Platelet morphology is normal. [facility] 05/29/2024 1:58 AM [facility] Polychromasia Moderate(A) None Seen JARET 05/29/2024 1:58 AM [facility] Sickle Cells Moderate(A) None Seen [facility] 05/29/2024 1:58 AM [facility] Blood VENOUS LINE / Unknown Venipuncture / Unknown 05/29/2024 12:53 AM [facility] 05/29/2024 12:58 AM [facility] us Lenin Smith MD LAB - BLOOD ORDERABLES Final Result [facility] [address] [place] [address], [facility] * (ABNORMAL) CBC with platelets and differential (05/29/2024 12:53 AM [facility]) [facility] WBC Count 15.6(H) 4.0 - 11.0 10e3/uL 05/29/2024 1:58 AM [facility] RBC Count 2.09(L) 3.80 - 5.20 10e6/uL 05/29/2024 1:58 AM [facility] Hemoglobin 6.7(LL) 11.7 - 15.7 g/dL 05/29/2024 1:58 AM [facility] Hematocrit 19.2(L) 35.0 - 47.0 % 05/29/2024 1:58 AM [facility] MCV 92 78 - 100 fL 05/29/2024 1:58 AM [facility] MCH 32.1 26.5 - 33.0 pg 05/29/2024 1:58 AM [facility] MCHC 34.9 31.5 - 36.5 g/dL 05/29/2024 1:58 AM [facility] RDW 23.0(H) 10.0 - 15.0 % 05/29/2024 1:58 AM [facility] Platelet Count 405 150 - 450 10e3/uL 05/29/2024 1:58 AM [facility] Blood VENOUS LINE / Unknown Venipuncture / Unknown 05/29/2024 12:53 AM SR. DIRECTOR PRODUCT MANAGEMENT 05/29/2024 12:58 AM [facility] Lenin Smith MD LAB - BLOOD ORDERABLES Final Result [facility] [address] [place] [address], [facility] * (ABNORMAL) Reticulocyte count (05/29/2024 12:53 AM SR. DIRECTOR PRODUCT MANAGEMENT) [facility] % Reticulocyte 28.6(H) 0.5 - 2.0 % 05/29/2024 1:27 AM [facility] Absolute Reticulocyte 0.616(H) 0.025 - 0.095 10e6/uL 05/29/2024 1:27 AM [facility] Blood VENOUS LINE / Unknown Venipuncture / Unknown 05/29/2024 12:53 AM SR. DIRECTOR PRODUCT MANAGEMENT 05/29/2024 12:58 AM SR. DIRECTOR PRODUCT MANAGEMENT us Lenin Smith MD LAB - BLOOD ORDERABLES Final Result [facility] [address] [place] [id number], [facility] documented in this encounter [...] For 1 dose $Given 05/29/2024 1:26 AM SR. DIRECTOR PRODUCT MANAGEMENT 25 mg heparin lock flush 10 unit/mL [...] each port lumen $Given 05/29/2024 3:38 AM SR. DIRECTOR PRODUCT MANAGEMENT 5 mLs HYDROmorphone (DILAUDID) injection 2 mg 2 mg, Intravenous, EVERY 1 HOUR PRN, severe pain, moderate pain, Starting on Wed05/29/24 at 0010, For 3 doses $Given 05/29/2024 3:37 AM SR. DIRECTOR PRODUCT MANAGEMENT 2 mg $Given 05/29/2024 2:37 AM SR. DIRECTOR PRODUCT MANAGEMENT 2 mg $Given 05/29/2024 1:19 AM SR. DIRECTOR PRODUCT MANAGEMENT 2 mg lactated ringers BOLUS 1,000 mL Intravenous, 1,000 mL, ONCE, at 1,000 mL/hr, Administer over 1 Hours, On Wed05/29/24 at 0030, For 1 dose $New Bag 05/29/2024 1:01 AM SR. DIRECTOR PRODUCT MANAGEMENT 1,000 mLs 1000 mL/hr sodium chloride (PF) 0.9% PF flush 10-20 mL 10-20 mL, Intracatheter, EVERY 1 MIN PRN, line flush, post meds or blood draw, to flush each lumen of the CVC Implanted port, Starting on Wed05/29/24 at 0008, 10 mL per port lumen post IV meds; 20 mL per port lumen post post blood draw. $Given 05/29/2024 3:37 AM SR. DIRECTOR PRODUCT MANAGEMENT 10 mLs sodium chloride (PF) 0.9% PF [...] Recently Administered Medications Times are shown in SR. DIRECTOR PRODUCT MANAGEMENT. Scheduled Medication Order 05/27/2024 05/28/2024 05/29/2024 diphenhydrAMINE (BENADRYL) injection 25 mg (COMPLETED) 25 mg, Intravenous, ONCE, On Wed05/29/24 at 0130, For 1 dose 0126 ($Given - Provi ans: Tatiana Rodriguez RN) heparin lock flush 10 [...] lumen documented in this encounter Care Teams Contract Officer Relationship Specialty Start Date End Date No Ref-Primary, Physician PCP - General 03/15/24 06/17/24 Mor Ramsey Medical Student 04/03/24 Case Samuel MD [address] [place] [address] [address] [place] [address] Assigned Pediatric Specialist Provider 05/18/24 Juhi Benson, RN Specialty [employer] Manager Hematology & Oncology 05/29/24 documented as of this encounter
--- OUTSIDE RECORDS SUMMARY | 2024-06-24 20:54 | XMS_ITS | Encounter Summary ---
Author Organization [place] Address [address] [place] [address]. [place] [address] Care Team Providers Care Cream Maker Name Role Phone No Ref-Primary, Physician Primary Care Provider Mor Ramsey Unavailable Unavailable Case Samuel MD Unavailable [phone] Encounter Details Date Type Department Care Team [...] on file Legal Sex Female 8:25 AM TURKEY ROLL MAKER Gender Identity Not on file Sexual Orientation Not on file documented as of this encounter Plan of Treatment Not on file documented as of this encounter Goals Goal Patient Goal Type Associated Problems Recent Progress Patient-Stated? Author Pain Management General On track( 025 12:40 PM TURKEY ROLL MAKER) Yes Juhi Benson, RN Note: Goal [...] on filedocumented in this encounter Care Teams Cream Maker Relationship Specialty Start Date End Date No Ref-Primary, Physician PCP - General 03/15/24 06/17/24 Mor Ramsey Medical Student 04/03/24 Case Samuel MD [address] [place] [address] [address], [address] [place] [address] Assigned Pediatric Specialist Provider 05/18/24 documented as of this encounter
--- OUTSIDE RECORDS SUMMARY | 2024-06-24 20:55 | XMS_ITS | Encounter Summary ---
Author Organization [facility] Address [address] [place] [address]. [place] [address] Care Team Providers Care Regional Climate Change Analyst Name Role Phone No Ref-Primary, Physician Primary Care Provider Mor Ramsey Unavailable Unavailable Case Samuel MD Unavailable [phone] Juhi Benson RN Unavailable Unavailable Reason for Visit * Reason Comments Sickle Cell Pain Crisis Encounter Details Date Type Department Care Team (Late st Contact Info) Description 06/07/2024 10:00 AM GRANITE SANDBLASTER APPRENTICE - 06/07/2024 10:45 AM [facility] Emergency [facility] Emergency Room [facility] [place] [address] Bernabe Farley MD [facility] [address] [place] [address] Chest pain, unspecified type; Fever, unspecified fever [...] on file Legal Sex Female 8:25 AM GRANITE SANDBLASTER APPRENTICE Gender Identity Not on file Sexual Orientation Not on file documented as of this encounter Last Filed Vital Signs Vital Sign Reading Time Taken Comments Blood Pressure 108/63 06/07/2024 9:59 AM GRANITE SANDBLASTER APPRENTICE Pulse 84 06/07/2024 9:59 AM GRANITE SANDBLASTER APPRENTICE Temperature 36.6 C (97.9 F) 06/07/2024 9:59 AM GRANITE SANDBLASTER APPRENTICE Respiratory Rate 19 06/07/2024 9:59 AM GRANITE SANDBLASTER APPRENTICE Oxygen Saturation 100% 06/07/2024 9:59 AM GRANITE SANDBLASTER APPRENTICE Inhaled Oxygen Concentration - - Weight 52.2 kg (115 lb) 06/07/2024 9:59 AM GRANITE SANDBLASTER APPRENTICE Height - - Body Mass Index 21.73 06/06/2024 9:33 AM GRANITE SANDBLASTER APPRENTICE documented in this encounter Medications at Time [...] 05/01/2024 naloxone (NARCAN) 4 MG/0.1ML nasal spray [place] 1 spray (4 mg) into one nostril [...] did not want to wait for a escort car driver so she would like to leave at this time. MD and charge informed. ITE SANDBLASTER APPRENTICE * Bernabe Farley MD - 06/07/2024 10:04 [...] she unfortunately left by car as the escort car driver after stating to staff that she [...] left. Additional ED Course timestamps entered by biomedical engineering internship: 10:12 AM I met with the patient [...] at this time. Per Chart Review: 06/06/24, [facility] ED: Patient presented for sickle cell related [...] physician who is working with her rail car repair carman for the care plan. Per the patient [...] she shows signs of opiate overdose. Our medical customer service representative Hattie and our personal security specialist Jagdeep both just saw the patient to get into the escort car driver seat and drive away after being [...] direction. Bernabe Farley M.D. Emergency Medicine [facility] EMERGENCY ROOM [address] [facility] [address] Dept: [phone] Bernabe Farley MD 06/07/24 1045 ITE SANDBLASTER APPRENTICE * Yanely Avendano RN - 06/07/2024 10:04 AM CST Pt here in sickle cell crisis for the 3rd day. Yesterday she received a lot of IV dilaudid and then drove home after told not to. Upon arrival here she repeatedly told this television script writer she was dropped off but after reviewing the security camera she is clearly driving in and getting out of the escort car driver seat. Provider notified. Reports chest pain today. Last dose of oral was 2 hours ago. Triage Assessment (Adult) Row Name 06/07/24 0959 Triage Assessment Airway WDL WDL Respiratory WDL Respiratory WDL WDL Skin Circulation/Temperature WDL Skin Circulation/Temperature WDL WDL Cardiac WDL Cardiac WDL WDL Peripheral/Neurovascular WDL Peripheral Neurovascular WDL WDL Cognitive/Neuro/Behavioral WDL Cognitive/Neuro/Behavioral WDL WDL ITE SANDBLASTER APPRENTICE documented in this encounter Plan of Treatment Not on file documented as of this encounter Goals Goal Patient Goal Type Associated Problems Recent Progress Patient-Stated? Author Pain Management General On track( 025 12:40 PM GRANITE SANDBLASTER APPRENTICE) Yes Juhi Benson, RN Note: Goal Statement: [...] Recently Administered Medications Times are shown in GRANITE SANDBLASTER APPRENTICE. Scheduled Medication Order 06/05/2024 06/06/2024 06/07/2024 heparin [...] Out COVID-19 06/07/2024 06/07/2024 06/07/2024 12:50 PM GRANITE SANDBLASTER APPRENTICE documented as of this encounter Care Teams Regional Climate Change Analyst Relationship Specialty Start Date End Date No Ref-Primary, Physician PCP - General 03/15/24 06/17/24 Mor Ramsey Medical Student 04/03/24 Case Samuel MD [address] [place] [address] [address], [address] [place] [address] Assigned Pediatric Specialist Provider 05/18/24 Juhi Benson, RN Specialty Director Smb Sales Hematology & Oncology 05/29/24 documented as of this encounter
--- OUTSIDE RECORDS SUMMARY | 2024-06-24 20:55 | XMS_ITS | Encounter Summary ---
Author Organization [facility] Address [address] [place] [address]. [place] [address] Care Team Providers Care Senior Master Scheduler Name Role Phone No Ref-Primary, Physician Primary Care Provider Mor Ramsey Unavailable Unavailable Case Samuel MD Unavailable [phone] Juhi Benson RN Unavailable Unavailable Reason for Visit * Reason Comments Infusion IVF + pain medicatio n Encounter Details Date Type Department Care Team (Late st Contact Info) Description 06/07/2024 1:30 PM PARBOILER Infusion Therapy Visit [facility] [address] [place] [address] Case Samuel MD [address] [place] [address] 484, [address] [place], [place] [id number] Fever (Primary Dx); Sickle cell pain crisis [...] on file Legal Sex Female 8:25 AM PARBOILER Gender Identity Not on file Sexual Orientation Not on file documented as of this encounter Last Filed Vital Signs Vital Sign Reading Time Taken Comments Blood Pressure 119/76 06/07/2024 3:43 PM PARBOILER Pulse 72 06/07/2024 3:43 PM PARBOILER Temperature 37 C (98.6 F) 06/07/2024 1:35 PM PARBOILER Respiratory Rate 16 06/07/2024 1:35 PM PARBOILER Oxygen Saturation 99% 06/07/2024 3:43 PM PARBOILER Inhaled Oxygen Concentration - - Weight - - Height - - Body Mass Index - - documented in this encounter Patient Instructions * Patient Instructions* Tyson Hess RN - 06/07/2024 1:30 PM PARBOILER Dear Gianna Hernández Thank you for choosing [facility] ([facility]) for your infusion. The following information is a summary of our appointment as well as important reminders. If you have any questions on your upcoming Specialty Infusion appointments, please call scheduling at [phone]. It was a pleasure taking care of you today. Sincerely, [facility] [address] [place] [id number] OILER documented in this encounter Progress Notes * Tyson Hess RN - 06/07/2024 1:30 PM CST Infusion Nursing Note: Gianna Hernández presents today for IV infusion; IVF + pain medication. Patient seen by provider today: No Fiberglass Pipe Covering Supervisor present during visit today: Not Applicable. Note: [...] all questions answered. AVS to patient via EponymHART. Patient will return as needed for next appointment. Patient discharged in stable condition accompanied by: self. Departure Mode: Ambulatory. Tyson Hess RN OILER documented in this encounter Plan of Treatment Not on file documented as of this encounter Goals Goal Patient Goal Type Associated Problems Recent Progress Patient-Stated? Author Pain Management General On track( 025 12:40 PM PARBOILER) Yes Juhi Benson RN Note: Goal Statement: [...] AND PLATELET MORPHOLOGY Routine 06/07/2024 1:15 PM PARBOILER Sickle cell pain crisis (H) CBC WITH PLATELETS AND DIFFERENTIAL Routine 06/07/2024 1:15 PM PARBOILER Sickle cell pain crisis (H) INFLUENZA A/B, RSV AND SARS-COV2 PCR Routine 06/07/2024 1:15 PM PARBOILER Fever CBC WITH PLATELETS & DIFFERENTIAL Routine 06/07/2024 1:15 PM PARBOILER Sickle cell pain crisis (H) BASIC METABOLIC PANEL Routine 06/07/2024 1:15 PM PARBOILER Sickle cell pain crisis (H) documented in this encounter Results * (ABNORMAL) RBC and Platelet Morphology (06/07/2024 1:15 PM PARBOILER) RBC Morphology Confirmed RBC Indices 06/07/2024 2:06 PM PARBOILER [facility] Platelet Assessment Automated Count Confirmed. Platelet morphology is normal. Automated Count Confirmed. Platelet morphology is normal. 06/07/2024 2:06 PM PARBOILER [facility] [place] Bodies Present(A) None Seen 06/07/2024 2:06 PM PARBOILER [facility] Polychromasia Slight(A) None Seen 06/07/2024 2:06 PM PARBOILER [facility] Sickle Cells Moderate(A) None Seen 06/07/2024 2:06 PM PARBOILER [facility] Target Cells Slight(A) None Seen 06/07/2024 2:06 PM PARBOILER [facility] Teardrop Cells Slight(A) None Seen 06/07/2024 2:06 PM PARBOILER [facility] Blood BLOOD SPECIMEN / Unknown IVAD (Port) / Unknown 06/07/2024 1:15 PM PARBOILER 06/07/2024 1:35 PM PARBOILER Case Samuel MD LAB - BLOOD ORDERABLES Fi nal Result [facility] [address] 1st [place] [address] * Influenza A/B, RSV and SARS-CoV2 PCR (COVID-19) Nasopharyngeal (06/07/2024 1:15 PM PARBOILER) Influenza A PCR Negative Negative 06/07/2024 3:32 PM PARBOILER [facility] Influenza B PCR Negative Negative 06/07/2024 3:32 PM PARBOILER [facility] RSV PCR Negative Negative 06/07/2024 3:32 PM PARBOILER [facility] SARS CoV2 PCR Negative Negative 06/07/2024 3:32 PM PARBOILER [facility] Comment:NEGATIVE: SARS-CoV-2 (COVID-19) RNA not detected, presumed negative. Swab NASOPHARYNGEAL STRUCTURE / Unknown Non-blood Collection / Unknown 06/07/2024 1:15 PM PARBOILER 06/07/2024 1:36 PM PARBOILER Narrative [facility] - 06/07/2024 3:32 PM PARBOILER Testing was performed using the Xpert Xpress CoV2/Flu/RSV Assay on the buuteeq GeneXpert Instrument. This test should be ordered [...] management. This test was validated by the [facility]. These laboratories are certified under the Clinical Laboratory Improvement Amendments of 1988 (CLIA-88) as qualified to perfom high complexity laboratory testing. us Case Samuel MD LAB - MICRO GENERAL ORDER SYD Final Result [facility] Inf. Diseases Diag. Lab [address] [facility], [address] [place] [phone] * (ABNORMAL) CBC with platelets and differential (06/07/2024 1:15 PM PARBOILER) WBC Count 13.7(H) 4.0 - 11.0 10e3/uL 06/07/2024 2:06 PM [facility] RBC Count 2.80(L) 3.80 - 5.20 10e6/uL 06/07/2024 2:06 PM [facility] Hemoglobin 8.8(L) 11.7 - 15.7 g/dL 06/07/2024 2:06 PM [facility] Hematocrit 25.3(L) 35.0 - 47.0 % 06/07/2024 2:06 PM [facility] MCV 90 78 - 100 fL 06/07/2024 2:06 PM [facility] MCH 31.4 26.5 - 33.0 pg 06/07/2024 2:06 PM [facility] MCHC 34.8 31.5 - 36.5 g/dL 06/07/2024 2:06 PM [facility] RDW 19.4(H) 10.0 - 15.0 % 06/07/2024 2:06 PM [facility] Platelet Count 516(H) 150 - 450 10e3/uL 06/07/2024 2:06 PM [facility] % Neutrophils 67 % 06/07/2024 2:06 PM [facility] % Lymphocytes 20 % 06/07/2024 2:06 PM [facility] % Monocytes 11 % 06/07/2024 2:06 PM [facility] % Eosinophils 1 % 06/07/2024 2:06 PM PARBOILER [facility] % Basophils 1 % 06/07/2024 2:06 PM PARBOILER [facility] % Immature Granulocytes 0 % 06/07/2024 2:06 PM PARBOILER [facility] NRBCs per 100 WBC 1(H) <1 /100 025 2:06 PM PARBOILER [facility] Absolute Neutrophils 9.2(H) 1.6 - 8.3 10e3/uL 06/07/2024 2:06 PM PARBOILER [facility] Absolute Lymphocytes 2.7 0.8 - 5.3 10e3/uL 06/07/2024 2:06 PM PARBOILER [facility] Absolute Monocytes 1.5(H) 0.0 - 1.3 10e3/uL 06/07/2024 2:06 PM [facility] Absolute Eosinophils 0.1 0.0 - 0.7 10e3/uL 06/07/2024 2:06 PM PARBOILER [facility] Absolute Basophils 0.2 0.0 - 0.2 10e3/uL 06/07/2024 2:06 PM PARBOILER [facility] Absolute Immature Granulocytes 0.1 <=0.4 10e3/uL 06/07/2024 2:06 PM PARBOILER [facility] Absolute NRBCs 0.1 10e3/uL 06/07/2024 2:06 PM [facility] Blood BLOOD SPECIMEN / Unknown IVAD (Port) / Unknown 06/07/2024 1:15 PM PARBOILER 06/07/2024 1:35 PM PARBOILER us Case Samuel MD LAB - BLOOD ORDERABLES Fi nal Result [facility] [place] [address] [facility] 1st Floor [place] [address] * (ABNORMAL) Basic metabolic panel (06/07/2024 1:15 PM PARBOILER) Pathologist [facility] Sodium 139 135 - 145 mmol/L 06/07/2024 2:11 PM PARBOILER [facility] Potassium 4.4 3.4 - 5.3 mmol/L 06/07/2024 2:11 PM [facility] Chloride 109(H) 98 - 107 mmol/L 06/07/2024 2:11 PM [facility] Carbon Dioxide (CO2) 22 22 - 29 mmol/L 06/07/2024 2:11 PM [facility] Anion Gap 8 7 - 15 mmol/L 06/07/2024 2:11 PM [facility] Urea Nitrogen 7.4 6.0 - 20.0 mg/dL 06/07/2024 2:11 PM [facility] Creatinine 0.66 0.51 - 0.95 mg/dL 06/07/2024 2:11 PM [facility] GFR Estimate >90 >60 mL/min/1.7 3m2 06/07/2024 2:11 PM [facility] Comment:eGFR calculated usin 2020 CKD-EPI equation. Calcium 9.3 8.8 - 10.4 mg/dL 06/07/2024 2:11 PM [facility] Glucose 98 70 - 99 mg/dL 06/07/2024 2:11 PM [facility] Blood BLOOD SPECIMEN / Unknown IVAD (Port) / Unknown 06/07/2024 1:15 PM PARBOILER 06/07/2024 1:35 PM PARBOILER Case Samuel MD LAB - BLOOD ORDERABLES Fi nal Result [facility] [address] 1[address] [place] [address] documented in this encounter Visit Diagnoses Diagnosis [...] pain crisis (H) $Given 06/07/2024 3:41 PM PARBOILER 5 mLs HYDROmorphone (DILAUDID) injection 2 mg 2 mg, Intravenous, EVERY 1 HOUR PRN, severe pain, moderate pain, Starting on Wed06/07/24 at 1309, For 3 dosesIndications:Sickle cell pain crisis (H) $Given 06/07/2024 3:28 PM PARBOILER 2 mg $Given 06/07/2024 2:30 PM PARBOILER 2 mg $Given 06/07/2024 1:37 PM PARBOILER 2 mg lactated ringers BOLUS 1,000 mL Intravenous, 1,000 mL, ONCE, at 500 mL/hr, Administer over 2 Hours, On Wed06/07/24 at 1315, For 1 doseIndications:Sickle cell pain crisis (H) $New Bag 06/07/2024 1:37 PM PARBOILER 1,000 mLs 500 mL/hr documented in this encounter Additional Health Concerns Infection Onset Date Last Indicated Resolved Time Rule Out COVID-19 06/07/2024 06/07/2024 06/07/2024 3:32 PM PARBOILER documented as of this encounter Care Teams Senior Master Scheduler Relationship Specialty Start Date End Date No Ref-Primary, Physician PCP - General 03/15/24 06/17/24 Mor Ramsey Medical Student 04/03/24 Case Samuel MD [address] [place] [address] 484, [address] [place] [address] Assigned Pediatric Specialist Provider 05/18/24 Juhi Benson, RN Specialty [facility] Hematology & Oncology 05/29/24 documented as of this encounter
--- OUTSIDE RECORDS SUMMARY | 2024-06-24 20:55 | XMS_ITS | Encounter Summary ---
Author Organization [place] Address [address] [place] [address]. 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 Call member services at your health plan with any benefit or coverage questions. TRUCK ENGINE MECHANIC Reason for Visit * Reason Comments Sickle Cell Pain Crisis * Auth/Cert Specialty Diagnoses / Procedures Referred By Contkameron t Referred To Contact EMERGENCY MEDICINE Diagnoses Acute chest pain Sickle cell pain crisis (H) [facility] Emergency Department [address] [place] [address] Phone: tel: Referral ID Status Reason Start Date Expiration Date Visits Re quested Visits Authorized [id number] 1 1 Encounter Details Date Type Department Care Team (Latest Contact Info) Description 06/12/2024 6:38 PM TANK TRUCK ENGINE MECHANIC - 06/15/2024 10:48 AM TANK TRUCK ENGINE MECHANIC [facility] Emergency Department [address] [place] [phone] Abdelrahman Goddard MD [address] [place] [address] Andres Jain DO Duffy, Briar, MD [address] [facility] [address] [place] [address] 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) [...] in an abandoned building, in an overnight care home, or couch-surfing.) Yes 04/09/2024 Are you [...] on file Legal Sex Female 8:25 AM TANK TRUCK ENGINE MECHANIC Gender Identity Not on file Sexual Orientation Not on file documented as of this encounter Last Filed Vital Signs Vital Sign Reading Time Taken Comments Blood Pressure 99/64 06/15/2024 6:10 AM TANK TRUCK ENGINE MECHANIC Pulse 75 06/15/2024 6:10 AM TANK TRUCK ENGINE MECHANIC Temperature 36.7 C (98 F) 06/15/2024 6:10 AM TANK TRUCK ENGINE MECHANIC Respiratory Rate 16 06/15/2024 6:10 AM TANK TRUCK ENGINE MECHANIC Oxygen Saturation 100% 06/15/2024 6:10 AM TANK TRUCK ENGINE MECHANIC Inhaled Oxygen Concentration - - Weight - - Height - - Body Mass Index - - documented in this encounter Discharge Summaries * Rl Elias MD - 06/15/2024 8:58 AM CST [facility] Discharge Summary - Medicine & Pediatrics Date of Admission: 06/12/2024 Date of Discharge: 06/15/2024 Discharging Provider: Dr Rl Elias, Dr German Hall Discharge Service: Medicine Service, [facility] TEAM 1 Discharge Diagnoses Acute sickle cell [...] 5 day course of antibiotics - Continue TRACTOR OPERATOR HELPER hydroxyurea - Continue TRACTOR OPERATOR HELPER folic acid - Continue albuterol inhaler QID given in the ED - Patient should follow up with her PCP upon discharge in 2-3 weeks - Patient should restart pain plan as taking at home with PO hydromorphone 2 mg Q6H PRN for pain upon discharge #Anxiety #Nausea - Continue TRACTOR OPERATOR HELPER Fluoxetine 10 mg daily Consultations This Hospital Stay HEMATOLOGY ADULT IP CONSULT CARE MANAGEMENT / SOCIAL WORK IP CONSULT Code Status Full Code The patient was discussed with Dr. Hall. MD Oliver LANGLEY [address] [place] [address] EMERGENCY DEPARTMENT [address] [facility] [id number] Physical Exam Vital Signs: Temp: 98 ??F [...] your primary care provider & your primary Loan Funder as indicated. Activity Your activity upon discharge: [...] Narrative EXAM: XR CHEST 2 VIEWS LOCATION: [facility] DATE: 06/12/2024 INDICATION: CP COMPARISON: 06/03/2024, [...] E-Prescribe naloxone (NARCAN) 4 MG/0.1ML nasal spray [place] 1 spray (4 mg) into one nostril [...] German Hall MD at 06/22/2024 12:17 PM TANK TRUCK ENGINE MECHANIC TRUCK ENGINE MECHANIC TRUCK ENGINE MECHANIC Associated attestation - German Hall MD - 06/22/2024 12:17 PM TANK TRUCK ENGINE MECHANIC Attestation: This patient has been seen and [...] 05/01/2024 naloxone (NARCAN) 4 MG/0.1ML nasal spray [place] 1 spray (4 mg) into one nostril [...] Overall, I spent 35 minutes today (DOS) [id number] and/or coordinating care as documented above and specifically listed as below: --Reviewing documentation related to patient's history and this current admission available in [facility] --Review and clinical interpretation of pertinent laboratory test results and radiology reports from this admission --Discussion of the patient's case with the members of the Hematology Consult Team --Discussion with the patient --Documentation in the electronic health record TRUCK ENGINE MECHANIC * Rl Elias MD - 06/14/2024 7:08 [...] Service (when I saw the patient): 06/14/24 [facility] Progress Note - [facility] Date of Admission: 06/12/2024 Assessment [...] 7-9, most recent Hbg 8.8 on 06/07 TRACTOR OPERATOR HELPER. Hb.5 -> 6.4 -> 6.8 -> 6.9 Plan: - Blood cultures pending x2 - NGTD - CTM hemoglobin daily - Ordered Voltaren gel, lidocaine patches, and icy hot PRN - Continue Ceftriaxone and Azithromycin for ppx (06/12 -*), consider transition to PO this afternoon - Continue TRACTOR OPERATOR HELPER hydroxyurea - Continue TRACTOR OPERATOR HELPER folic acid - Continue IS - type and screen ordered, consented for blood on 06/13 - no indication for transfusion unless hemodynamically unstable - Hematology consulted, appreciate recs - Hydromorphone 2 mg IV Q2H scheduled--titrate within 24-48 hours - Maintenance LR - Transfusion not recommended at this time - albuterol inhaler q6h, zofran, benadryl, docusate, senna PRN #Anxiety #Nausea - Continue TRACTOR OPERATOR HELPER Fluoxetine - Benadryl PRN per Pain Plan [...] Nivia Carvajal, MS3 Medical Student Medicine Service, [facility] [address] [place] [address] Securely message with [employer] (more info) Text page via [facility] Paging/Directory See signed in provider for up [...] German Hall MD at 06/19/2024 8:50 AM TANK TRUCK ENGINE MECHANIC TRUCK ENGINE MECHANIC TRUCK ENGINE MECHANIC TRUCK ENGINE MECHANIC Associated attestation - German Hall MD - 06/19/2024 8:50 AM TANK TRUCK ENGINE MECHANIC Attestation: This patient has been seen and [...] Service (when I saw the patient): 06/13/24 [facility] Progress Note - Medicine Service, [facility] TEAM 1 Date of Admission: 06/12/2024 Assessment [...] 7-9, most recent Hbg 8.8 on 06/07 TRACTOR OPERATOR HELPER. Hb.5 -> 6.4 Plan: -Blood cultures pending x2 -CTM hemoglobin daily -Continue Ceftriaxone and Azithromycin for ppx (06/12 -*) -Continue TRACTOR OPERATOR HELPER hydroxyurea -Continue TRACTOR OPERATOR HELPER folic acid - type and screen ordered, consented for blood - no indication for transfusion unless hemodynamic instability - Hematology consulted, appreciate recs -Hydromorphone 2 mg IV Q3H scheduled--titrate within 24-48 hours -Maintenance LR -Transfusion not recommended at this time - zofran, benadryl, docusate, senna PRN #Anxiety #Nausea -Continue TRACTOR OPERATOR HELPER Fluoxetine -Benadryl PRN per Pain Plan -Zofran [...] Nivia Carvajal, MS3 Medical Student Medicine Service, [facility] TE[facility] [address] [place] [address] Securely message with [employer] (more info) Text page via [employer] Paging/Directory See signed in provider for up [...] Narrative EXAM: XR CHEST 2 VIEWS LOCATION: [facility] DATE: 06/12/2024 INDICATION: CP COMPARISON: 06/03/2024, [...] German Hall MD at 06/14/2024 8:25 AM TANK TRUCK ENGINE MECHANIC TRUCK ENGINE MECHANIC TRUCK ENGINE MECHANIC Associated attestation - German Hall MD - 06/14/2024 8:25 AM TANK TRUCK ENGINE MECHANIC Attestation: This patient has been seen and evaluated by me, German Hall MD. Discussed with the house staff team or resident(s) and agree with the findings and plan in this note. I have reviewed today's Medications, Vital Signs, and Labs. DOS 06/13 * Mary Flores MD - 06/12/2024 8:20 PM CST call centre supervisor Hematology fellow note 29F Sickle cell disease [...] Flores MD MS Hematology fellow, PGY5 Pager: [phone] Cosigned by Kirstin Long MD at 06/13/2024 7:25 AM TANK TRUCK ENGINE MECHANIC TRUCK ENGINE MECHANIC TRUCK ENGINE MECHANIC TRUCK ENGINE MECHANIC Associated attestation - Kirstin Long MD - 06/13/2024 7:25 AM TANK TRUCK ENGINE MECHANIC Physician Attestation I discussed patient overnight with fellow contact lens edge buffer. I agree with plan as outlined. I did not see thepatient on this date. Kirstin Long MD/PhD documented in this encounter H&P Notes * aLquita Kelley MD - 06/12/2024 9:37 PM CST [facility] History and Physical - Medicine Service, [facility] TE[facility] Date of Admission: 06/12/2024 Assessment & [...] of avascular necrosis of left hip -Continue TRACTOR OPERATOR HELPER hydroxyurea -Continue TRACTOR OPERATOR HELPER folic acid -Transfuse for Hb<7 #Stroke reported [...] Jain . Laquita Kelley MD Medicine Service, [facility] Securely message with [employer] (more info) Text page via [facility] Paging/Directory See signed in provider [...] 4 MG/0.1ML nasal spray No No Sig: [place] 1 spray (4 mg) into one nostril [...] Andres Jain DO at 06/12/2024 10:27 PM TANK TRUCK ENGINE MECHANIC TRUCK ENGINE MECHANIC TRUCK ENGINE MECHANIC TRUCK ENGINE MECHANIC TRUCK ENGINE MECHANIC Associated attestation - Andres Jain DO - 06/12/2024 10:27 PM TANK TRUCK ENGINE MECHANIC Physician Attestation I saw this patient with [...] Communication Assessment Patient's communication style: spoken language (Kenyan or Bilingual) Cognitive Cognitive/Neuro/Behavioral: WDL Living Environment: [...] Depression: Not at risk (04/11/2024) Received from [facility] PHQ-2 PHQ-2 TOTAL SCORE: 1 Housing Stability: [...] Social Connections: Socially Integrated (03/28/2024) Received from [facility] Social Connections Do you often feel lonely or isolated from those around you?: 0 Health Literacy: Not on file Functional Status: Prior to admission patient needed assistance: Dependent ADLs:: Independent Dependent IADLs:: Independent Mental Health Status: Mental Health Status: No Current Concerns Chemical Dependency Status: Chemical Dependency Status: No Current Concerns Values/Beliefs: Spiritual, Cultural Beliefs, Uatsdin Practices, Values that affect care: no Discussed [...] Katheryn Carter RN, PHN, BSN Float Nurse Project Management Covering for Unit ED Phone [phone] TRUCK ENGINE MECHANIC * Kirstin Long MD - 06/13/2024 10:17 AM CSTAssociated Order(s): HEMATOLOGY ADULT IP CONSULT Images from the original note were not included. Hematology Consult Note Date of Service: 06/13/2024 Patient: Gianna Hernández Admission Date: 06/12/2024 Hospital Day # 1 Hematology Diagnosis: Sickle Cell Disease - HbSS Primary Outpatient Loan Funder: Dr Samuel Current Treatment Plan: Inpatient: Opioid: 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, [facility]pl[facility] Gallstones Hb-SS disease without [...] mg 25 mg Oral Q6H PRN Laquita Kelely MD Or diphenhydrAMINE (BENADRYL) injection 25 mg [...] 11 naloxone (NARCAN) 4 MG/0.1ML nasal spray [place] 1 spray (4 mg) into one nostril [...] Imaging EXAM: XR CHEST 2 VIEWS LOCATION: [facility] DATE: 06/12/2024 INDICATION: CP COMPARISON: 06/03/2024, 05/27/2024 IMPRESSION: A few faint peripheral reticulonodular opacities in the mid and lower lungs again seen.Lungs otherwise clear. No pleural effusion. No pneumothorax. Borderline cardiac enlargement unchanged. Port anterior right chest wall with right IJ central venous catheter tip low SVC. Port anterior left chest wall with left IJ central venous catheter tip low SVC. TRUCK ENGINE MECHANIC documented in this encounter ED Notes * Juhi Crump RN - 06/12/2024 6:55 PM CST Bed: [facility] Expected date: Expected time: Means of arrival: Comments: SICK TRUCK ENGINE MECHANIC * Lebron Aponte RN - 06/12/2024 6:34 PM CST Pt ambulatory to triage with CC of sickle cell pain in the L upper anterior chest. Was seen for this at [facility] last night. Reports interventions at [facility] were helpful, however pain has returned. Patient reports taking 4mg po Dilaudid at 1500 with partial relief of pain but is still severe. Contacted oyster shucker and was instructed to come to [facility] EB. Reports SOB a little bit. It hurts to take a deep breath. Denies dizziness. Triage Assessment (Adult) Row Name 06/12/24 9055 Triage Assessment Airway WDL WDL Respiratory WDL [...] 5-->(V5) oriented Lester Coma Scale Score 15 TRUCK ENGINE MECHANIC * Abdelrahman Goddard MD - 06/12/2024 6:20 PM CST Images from the original note were not included. [facility] EMERGENCY DEPARTMENT ([facility]) 06/12/24 ED PROVIDER NOTE History No chief [...] background: 29 yo F, recently moved from [place] Sickle Cell Disease History Primary Loan Funder/SHORE MAN/PA: Lizzie Genotype: SS Acute Pain Crisis Treatment: 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, [facility] Functional asplenia Gallstones Hb-SS disease without [...] chest pain Rhythm: normal sinus Rate: 94BPM [place]: Normal Ectopy: none Conduction: normal ST Segments/ [...] BPM Atrial Rate 102 BPM NE Interval 158 ms QRS Duration 78 ms QT 348 ms QTc 453 ms P [place] 39 degrees R AXIS 66 degrees T [place] 33 degrees Interpretation ECG Sinus tachycardia Nonspecific T wave abnormality Abnormal ECG When compared with ECG of 05-Jun-2024 11:40, No significant change was found Confirmed by SEE ED PROVIDER NOTE FOR, ECG INTERPRETATION ([id number]), film and video editor SELMA GARRISON ([id number]) on 06/11/2024 9:05:27 PM Medications - No [...] Hernadez, am serving as a trained medical advisor to document services personally performed by Abdelrahman Goddard MD, based on the provider's statements to me. I, Abdelrahman Goddard MD, was physically present and have reviewed and verified the accuracy of this note documented by Jovanny Hernadez. Abdelrahman Goddard MD [facility] EMERGENCY DEPARTMENT 06/12/2024 Abdelrahman Goddard MD 06/12/242023 TRUCK ENGINE MECHANIC documented in this encounter Miscellaneous Notes * Plan of Care - Clay Avina RN - 06/15/2024 9:55 AM CST Goal Outcome Evaluation: Plan of Care Reviewed With: patient Overall Patient Progress: improving 4x A/O. VSS. RA. Independent. AVS reviewed, questions answered. Port de accessed with saline flush and heparin locked. TRUCK ENGINE MECHANIC * Plan of Care - Kathy Levy RN - 06/15/2024 6:22 AM CST Goal Outcome Evaluation: Plan of Care Reviewed With: patient Overall Patient Progress: improving Pt is alert anf oriented x4. VSS, on room air with no SOB noted. On pain management for sickle cellcrisis. Tolerating diet well with no n/v. L chest port infusing intermittent IV ABT. Voiding well. Last BM TRACTOR OPERATOR HELPER. Pt is up ad chandler. Will continue with plan of care. TRUCK ENGINE MECHANIC * Plan of Care - Clay Avina RN - 06/14/2024 5:02 PM CST Goal Outcome Evaluation: Plan of Care Reviewed With: patient Overall Patient Progress: improving 4x A/O. VSS. Independent. Pain controlled with schedule q2hr IV dilaudid. Tolerating regular diet. Voiding spontaneously. Had nausea in AM, relieved with Zofran. Port SL. TRUCK ENGINE MECHANIC * Pharmacy-Admission Medication History - Lorenza Valdes - 06/14/2024 11:19 AM CST Clay Press Operator Admission Medication History Admission medication history is complete. The information provided in this note is only as accurateas the sources available at the time of the update. Information Source(s): Patient and CareEverywhere/SureScripts via in-person Pertinent Information: Medication reconciliation completed at bedside with patient. Patient was a good historian of her medication names, doses, frequencies, and last doses. Changes made to TRACTOR OPERATOR HELPER medication list: Added: Epi-pen: patient has pen available, but has not used recently. Ibuprofen: OTC product used PRN for pain. Benadryl: OTC product used PRN for itching due to hydromorphone. Deleted: None Changed: None Allergies reviewed with patient and updates made in EHR: yes Medication History Completed By: Lorenza Valdes 06/14/2024 11:19 AM TRACTOR OPERATOR HELPER Med List Medication Sig Last Dose/Taking diphenhydrAMINE [...] Morning naloxone (NARCAN) 4 MG/0.1ML nasal spray [place] 1 spray (4 mg) into one nostril alternating nostrilsas needed for opioid reversal (for opiate overdose if not breathing and unconscious. have your family member watch video on how to use/read information sheet). every 2-3 minutes until assistance arrives Taking As Needed Cosigned by Terrell Fernandez RPH at 06/15/2024 10:33 AM TANK TRUCK ENGINE MECHANIC TRUCK ENGINE MECHANIC TRUCK ENGINE MECHANIC Associated attestation - Terrell Fernandez RPH - 06/15/2024 10:33 AM TANK TRUCK ENGINE MECHANIC I have read and agree with the student's note. Terrell Fernandez, PGY-1 Roping Tender * Provider Notification - Kiki Caal RN - 06/13/2024 7:27 PM TANK TRUCK ENGINE MECHANIC Notified providers Nivia Carvajal, Laquita Kelley and Rl Elias of critical Hgb 6.8 at 1920. No new orders TRUCK ENGINE MECHANIC * Plan of Care - Katheryn Carter RN - 06/13/2024 12:44 PM CST Goal Outcome Evaluation: Plan of Care Reviewed With: patient Overall Patient Progress: improvingOverall Patient Progress: improving Outcome Evaluation: Plan: TBD Katheryn Carter RN, PHN, BSN Float Nurse Project Management Covering for Unit ED Phone [phone] TRUCK ENGINE MECHANIC * Plan of Care - Shauna Cuadra [...] with POC. Notify primary team with changes. 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 Author Pain Management General On track( 025 12:40 PM TANK TRUCK ENGINE MECHANIC) Yes Juhi Benson RN Note: Goal Statement: [...] PLATELETS AND DIFFERENTIAL STAT 06/15/2024 6:09 AM TANK TRUCK ENGINE MECHANIC CBC WITH PLATELETS & DIFFERENTIAL STAT 06/15/2024 6:09 AM TANK TRUCK ENGINE MECHANIC BASIC METABOLIC PANEL STAT 06/15/2024 6:09 AM TANK TRUCK ENGINE MECHANIC XR CHEST PORT 1 VIEW STAT 06/14/2024 8:46 AM TANK TRUCK ENGINE MECHANIC BASIC METABOLIC PANEL STAT 06/14/2024 7:08 AM TANK TRUCK ENGINE MECHANIC CBC WITH PLATELETS STAT 06/14/2024 7: 08 AM TANK TRUCK ENGINE MECHANIC CBC WITH PLATELETS STAT 06/13/2024 6: 32 PM TANK TRUCK ENGINE MECHANIC RBC AND PLATELET MORPHOLOGY STAT 06/13/2024 6:00 AM TANK TRUCK ENGINE MECHANIC CBC WITH PLATELETS AND DIFFERENTIAL STAT 06/13/2024 6:00 AM TANK TRUCK ENGINE MECHANIC CBC WITH PLATELETS & DIFFERENTIAL STAT 06/13/2024 6:00 AM TANK TRUCK ENGINE MECHANIC BASIC METABOLIC PANEL STAT 06/13/2024 5:59 AM TANK TRUCK ENGINE MECHANIC RESPIRATORY PANEL PCR STAT 06/12/2024 9:34 PM TANK TRUCK ENGINE MECHANIC BLOOD CULTURE STAT 06/12/2024 8:46 PM TANK TRUCK ENGINE MECHANIC BLOOD CULTURE STAT 06/12/2024 8:46 PM TANK TRUCK ENGINE MECHANIC XR CHEST 2 VIEWS STAT 06/12/2024 7:38 PM TANK TRUCK ENGINE MECHANIC RBC AND PLATELET MORPHOLOGY STAT 06/12/2024 7:17 PM TANK TRUCK ENGINE MECHANIC CBC WITH PLATELETS AND DIFFERENTIAL STAT 06/12/2024 7:17 PM TANK TRUCK ENGINE MECHANIC TYPE AND SCREEN, ADULT Routine 06/12/2024 7:17 PM TANK TRUCK ENGINE MECHANIC TROPONIN T, HIGH SENSITIVITY STAT 06/12/2024 7:17 PM TANK TRUCK ENGINE MECHANIC CBC WITH PLATELETS & DIFFERENTIAL STAT 06/12/2024 7:17 PM TANK TRUCK ENGINE MECHANIC INR STAT 06/12/2024 7:17 PM TANK TRUCK ENGINE MECHANIC BLOOD GAS VENOUS STAT 06/12/2024 7:17 PM TANK TRUCK ENGINE MECHANIC ABO/RH TYPE AND SCREEN Add-On 06/12/2024 7:17 PM TANK TRUCK ENGINE MECHANIC BASIC METABOLIC PANEL STAT 06/12/2024 7:17 PM TANK TRUCK ENGINE MECHANIC EKG 12-LEAD, TRACING ONLY STAT 06/12/2024 6:37 PM TANK TRUCK ENGINE MECHANIC documented in this encounter Results * (ABNORMAL) CBC with platelets and differential (06/15/2024 6:09 AM TANK TRUCK ENGINE MECHANIC) Pathologist [facility] WBC Count 11.8(H) 4.0 - 11.0 10e3/uL 06/15/2024 6:36 AM TANK TRUCK ENGINE MECHANIC [facility] RBC Count 2.27(L) 3.80 - 5.20 10e6/uL 06/15/2024 6:36 AM TANK TRUCK ENGINE MECHANIC [facility] Hemoglobin 7.2(L) 11.7 - 15.7 g/dL 06/15/2024 6:36 AM TANK TRUCK ENGINE MECHANIC [facility] Hematocrit 20.4(L) 35.0 - 47.0 % 06/15/2024 6:36 AM TANK TRUCK ENGINE MECHANIC [facility] MCV 90 78 - 100 fL 06/15/2024 6:36 AM TANK TRUCK ENGINE MECHANIC [facility] MCH 31.7 26.5 - 33.0 pg 06/15/2024 6:36 AM TANK TRUCK ENGINE MECHANIC [facility] MCHC 35.3 31.5 - 36.5 g/dL 06/15/2024 6:36 AM TANK TRUCK ENGINE MECHANIC [facility] RDW 19.0(H) 10.0 - 15.0 % 06/15/2024 6:36 AM TANK TRUCK ENGINE MECHANIC [facility] Platelet Count 500(H) 150 - 450 10e3/uL 06/15/2024 6:36 AM TANK TRUCK ENGINE MECHANIC [facility] % Neutrophils 54 % 06/15/2024 6:36 AM TANK TRUCK ENGINE MECHANIC [facility] % Lymphocytes 31 % 06/15/2024 6:36 AM TANK TRUCK ENGINE MECHANIC [facility] % Monocytes 9 % 06/15/2024 6:36 AM TANK TRUCK ENGINE MECHANIC [facility] % Eosinophils 5 % 06/15/2024 6:36 AM TANK TRUCK ENGINE MECHANIC [facility] % Basophils 2 % 06/15/2024 6:36 AM TANK TRUCK ENGINE MECHANIC [facility] % Immature Granulocytes 1 % 06/15/2024 6:36 AM TANK TRUCK ENGINE MECHANIC [facility] NRBCs per 100 WBC 2(H) <1 /100 025 6:36 AM TANK TRUCK ENGINE MECHANIC [facility] Absolute Neutrophils 6.3 1.6 - 8.3 10e3/uL 06/15/2024 6:36 AM TANK TRUCK ENGINE MECHANIC [facility] Absolute Lymphocytes 3.6 0.8 - 5.3 10e3/uL 06/15/2024 6:36 AM TANK TRUCK ENGINE MECHANIC [facility] Absolute Monocytes 1.0 0.0 - 1.3 10e3/uL 06/15/2024 6:36 AM TANK TRUCK ENGINE MECHANIC [facility] Absolute Eosinophils 0.6 0.0 - 0.7 10e3/uL 06/15/2024 6:36 AM TANK TRUCK ENGINE MECHANIC [facility] Absolute Basophils 0.2 0.0 - 0.2 10e3/uL 06/15/2024 6:36 AM TANK TRUCK ENGINE MECHANIC [facility] Absolute Immature Granulocytes 0.1 <=0.4 10e3/uL 06/15/2024 6:36 AM TANK TRUCK ENGINE MECHANIC [facility] Absolute NRBCs 0.2 10e3/uL 06/15/2024 6:36 AM TANK TRUCK ENGINE MECHANIC [facility] Blood BLOOD SPECIMEN / Unknown IVAD (Port) / Unknown 06/15/2024 6:09 AM TANK TRUCK ENGINE MECHANIC 06/15/2024 6:18 AM TANK TRUCK ENGINE MECHANIC us Rl Elias MD LAB - BLOOD ORDER SYD Final Result [facility] [place] [facility] [address] [place] [address] * (ABNORMAL) Basic metabolic panel (06/15/2024 6:09 AM TANK TRUCK ENGINE MECHANIC) Sodium 136 135 - 145 mmol/L 06/15/2024 7:13 AM TANK TRUCK ENGINE MECHANIC [facility] Potassium 4.4 3.4 - 5.3 mmol/L 06/15/2024 7:13 AM TANK TRUCK ENGINE MECHANIC [facility] Chloride 104 98 - 107 mmol/L 06/15/2024 7:13 AM TANK TRUCK ENGINE MECHANIC [facility] Carbon Dioxide (CO2) 21(L) 22 - 29 mmol/L 06/15/2024 7:13 AM TANK TRUCK ENGINE MECHANIC [facility] Anion Gap 11 7 - 15 mmol/L 06/15/2024 7:13 AM TANK TRUCK ENGINE MECHANIC [facility] Urea Nitrogen 10.1 6.0 - 20.0 mg/dL 06/15/2024 7:13 AM TANK TRUCK ENGINE MECHANIC [facility] Creatinine 0.65 0.51 - 0.95 mg/dL 06/15/2024 7:13 AM TANK TRUCK ENGINE MECHANIC [facility] GFR Estimate >90 >60 mL/min/1.7 3m2 06/15/2024 7:13 AM TANK TR[employer] ENGINE MECHANIC [facility] Comment:eGFR calculated us2020 CKD-EPI equation. Calcium 8.9 8.8 - 10.4 mg/dL 06/15/2024 7:13 AM [employer] ENGINE MECHANIC [facility] Glucose 104(H) 70 - 99 mg/dL 06/15/2024 7:13 AM [employer] ENGINE MECHANIC [facility] Blood BLOOD SPECIMEN / Unknown IVAD (Port) / Unknown 06/15/2024 6:09 AM [employer]ANK TR[employer] ENGINE MECHANIC 06/15/2024 6:16 AM TANK TRUCK ENGINE MECHANIC Rl Elias MD LAB - BLOOD ORDER SYD Final Result [facility] [place] [facility] [address], [address] [phone] * XR Chest Port 1 View (06/14/2024 8:46 AM TANK TRUCK ENGINE MECHANIC) Anatomical Region Laterality Modality Chest Digital Radiogra phy Impressions 06/14/2024 8:59 AM TANK TR[employer] ENGINE MECHANIC Impression: Further increase in ill-defined opacity projecting over the right lower lung concerning for pneumonia. MARIO ALBERTO BLACKWOOD MD Narrative 06/14/2024 8:59 AM TANK TR[employer] ENGINE MECHANIC Exam: XR CHEST PORT 1 VIEW, 06/14/2024 [...] (ABNORMAL) CBC with platelets (06/14/2024 7:08 AM TANK TR[employer] ENGINE MECHANIC) WBC Count 13.4(H) 4.0 - 11.0 10e3/uL 06/14/2024 7:46 AM [employer] ENGINE MECHANIC [facility] RBC Count 2.30(L) 3.80 - 5.20 10e6/uL 06/14/2024 7:46 AM TANK TR[employer] ENGINE MECHANIC [facility] Hemoglobin 6.9(LL) 11.7 - 15.7 g/dL 06/14/2024 7:46 AM TANK TR[employer] ENGINE MECHANIC [facility] Hematocrit 21.6(L) 35.0 - 47.0 % 06/14/2024 7:46 AM TANK TR[employer] ENGINE MECHANIC [facility] MCV 94 78 - 100 fL 06/14/2024 7:46 AM TANK TR[employer] ENGINE MECHANIC [facility] MCH 30.0 26.5 - 33.0 pg 06/14/2024 7:46 AM TANK TR[employer] ENGINE MECHANIC [facility] MCHC 31.9 31.5 - 36.5 g/dL 06/14/2024 7:46 AM TANK TR[employer] ENGINE MECHANIC [facility] RDW 19.4(H) 10.0 - 15.0 % 06/14/2024 7:46 AM T[employer] TR[employer] ENGINE MECHANIC [facility] Platelet Count 501(H) 150 - 450 10e3/uL 06/14/2024 7:46 AM TANK TR[employer] ENGINE MECHANIC [facility] Blood BLOOD SPECIMEN / Unknown Venipuncture / Unknown 06/14/2024 7:08 AM TANK TR[employer] ENGINE MECHANIC 06/14/2024 7:22 AM TANK TR[employer] ENGINE MECHANIC us Rl Elias MD LAB - BLOOD ORDER SYD Final Result [facility] [place] [facility] [address] [facility], [address] [phone] * (ABNORMAL) Basic metabolic panel (06/14/2024 7:08 AM TANK TR[employer] ENGINE MECHANIC) Sodium 136 135 - 145 mmol/L 06/14/2024 7:57 AM TANK TR[employer] ENGINE MECHANIC [facility] Potassium 4.2 3.4 - 5.3 mmol/L 06/14/2024 7:57 AM TANK TR[employer] ENGINE MECHANIC [facility] Chloride 107 98 - 107 mmol/L 06/14/2024 7:57 AM TANK TR[employer] ENGINE MECHANIC [facility] Carbon Dioxide (CO2) 20(L) 22 - 29 mmol/L 06/14/2024 7:57 AM TANK TR[employer] ENGINE MECHANIC [facility] Anion Gap 9 7 - 15 mmol/L 06/14/2024 7:57 AM TANK TR[employer] ENGINE MECHANIC [facility] Urea Nitrogen 6.5 6.0 - 20.0 mg/dL 06/14/2024 7:57 AM TANK TR[employer] ENGINE MECHANIC [facility] Creatinine 0.71 0.51 - 0.95 mg/dL 06/14/2024 7:57 AM TANK TR[employer] ENGINE MECHANIC [facility] GFR Estimate >90 >60 mL/min/1.7 3m2 06/14/2024 7:57 AM TANK TR[employer] ENGINE MECHANIC [facility] Comment:eGFR calculated us2020 CKD-EPI equation. Calcium 8.9 8.8 - 10.4 mg/dL 06/14/2024 7:57 AM TANK TR[employer] ENGINE MECHANIC [facility] Glucose 92 70 - 99 mg/dL 06/14/2024 7:57 AM TANK TR[employer] ENGINE MECHANIC [facility] Blood BLOOD SPECIMEN / Unknown Venipuncture / Unknown 06/14/2024 7:08 AM TANK TR[employer] ENGINE MECHANIC 06/14/2024 7:22 AM TANK TR[employer] ENGINE MECHANIC Rl Elias MD LAB - BLOOD ORDER SYD Final Result [facility] [place] [facility] [address], [address] [place] [address] * (ABNORMAL) CBC with platelets (06/13/2024 6:32 PM TANK TRUCK ENGINE MECHANIC) [facility] WBC Count 15.3(H) 4.0 - 11.0 10e3/uL 06/13/2024 7:10 PM TANK TR[employer] ENGINE MECHANIC [facility] RBC Count 2.21(L) 3.80 - 5.20 10e6/uL 06/13/2024 7:10 PM T[employer] ENGINE MECHANIC [facility] Hemoglobin 6.8(LL) 11.7 - 15.7 g/dL 06/13/2024 7:10 PM TANK TR[employer] ENGINE MECHANIC [facility] Hematocrit 20.8(L) 35.0 - 47.0 % 06/13/2024 7:10 PM TANK TR[employer] ENGINE MECHANIC [facility] MCV 94 78 - 100 fL 06/13/2024 7:10 PM TANK TR[employer] ENGINE MECHANIC [facility] MCH 30.8 26.5 - 33.0 pg 06/13/2024 7:10 PM TANK TR[employer] ENGINE MECHANIC [facility] MCHC 32.7 31.5 - 36.5 g/dL 06/13/2024 7:10 PM TANK TR[employer] ENGINE MECHANIC [facility] RDW 19.6(H) 10.0 - 15.0 % 06/13/2024 7:10 PM TANK TR[employer] ENGINE MECHANIC [facility] Platelet Count 495(H) 150 - 450 10e3/uL 06/13/2024 7:10 PM TANK TR[employer] ENGINE MECHANIC [facility] Blood CENTRAL VENOUS CATHETER / Unknown VAD(CVC, PICC) / Unknown 06/13/2024 6:32 PM TANK TR[employer] ENGINE MECHANIC 06/13/2024 6:52 PM TANK [employer] ENGINE MECHANIC us Rl Elias MD LAB - BLOOD ORDER SYD Final Result [facility] [place] [facility] [address], [address] [place] [address] * (ABNORMAL) RBC and Platelet Morphology (06/13/2024 6:00 AM TANK TR[employer] ENGINE MECHANIC) [facility] RBC Morphology Confirmed RBC Indices 06/13/2024 3:45 PM TANK [employer] ENGINE MECHANIC [facility] Platelet Assessment Automated Count Confirmed. Platelet morphology is normal. Automated Count Confirmed. Platelet morphology is normal. 06/13/2024 3:45 PM TANK [employer] ENGINE MECHANIC [facility] Polychromasia Moderate(A) None Seen 06/13/2024 3:45 PM TANK TR[employer] ENGINE MECHANIC [facility] Sickle Cells Moderate(A) None Seen 06/13/2024 3:45 PM TANK TR[employer] ENGINE MECHANIC [facility] Target Cells Moderate(A) None Seen 06/13/2024 3:45 PM TANK TR[employer] ENGINE MECHANIC [facility] Pathologist Review Comments (Blood) Sickle shaped red blood cells are present compatible with patient's history of sickle cell disease. Ziegler Assaria bodies are present compatible with hyposplenic blood picture. There is increased lymphocytes; however, the morphology of lymphocytes is polymorphous. Follow up CBC, diff for resolution of this findings is recommended. Danny Martinez MD on 06/13/2024 at 3:44 PM 06/13/2024 3:45 PM [employer] ENGINE MECHANIC [facility] Comment:This is an appended report. These results have been appended to a previously final verified report. Blood VENOUS LINE / Unknown IVAD (Port) / Unknown 06/13/2024 6:00 AM TANK TR[employer] ENGINE MECHANIC 06/13/2024 6:16 AM TANK TR[employer] ENGINE MECHANIC us Laquita Kelley MD LAB - BLOOD ORDERABLES Edited R esult - Final [facility] [address] [facility], [address] [phone] [place] [facility] [address], [address] [phone] * (ABNORMAL) CBC with platelets and differential (06/13/2024 6:00 AM TANK TR[employer] ENGINE MECHANIC) WBC Count 17.0(H) 4.0 - 11.0 10e3/uL 06/13/2024 9:51 AM TANK TR[employer] ENGINE MECHANIC [facility] RBC Count 2.11(L) 3.80 - 5.20 10e6/uL 06/13/2024 9:51 AM TANK TR[employer] ENGINE MECHANIC [facility] Hemoglobin 6.4(LL) 11.7 - 15.7 g/dL 06/13/2024 9:51 AM TANK TR[employer] ENGINE MECHANIC [facility] Hematocrit 20.3(L) 35.0 - 47.0 % 06/13/2024 9:51 AM TANK TR[employer] ENGINE MECHANIC [facility] MCV 96 78 - 100 fL 06/13/2024 9:51 AM TANK TRUCK ENGINE MECHANIC [facility] MCH 30.3 26.5 - 33.0 pg 06/13/2024 9:51 AM TANK TR[employer] ENGINE MECHANIC [facility] MCHC 31.5 31.5 - 36.5 g/dL 06/13/2024 9:51 AM TANK TR[employer] ENGINE MECHANIC [facility] RDW 19.8(H) 10.0 - 15.0 % 06/13/2024 9:51 AM TANK TR[employer] ENGINE MECHANIC [facility] Platelet Count 458(H) 150 - 450 10e3/uL 06/13/2024 9:51 AM TANK TR[employer] ENGINE MECHANIC [facility] % Neutrophils 40 % 06/13/2024 9:51 AM TANK TRUCK ENGINE MECHANIC [facility] % Lymphocytes 42 % 06/13/2024 9:51 AM TANK TRUCK ENGINE MECHANIC [facility] % Monocytes 13 % 06/13/2024 9:51 AM TANK TRUCK ENGINE MECHANIC [facility] % Eosinophils 3 % 06/13/2024 9:51 AM TANK TR[employer] ENGINE MECHANIC [facility] % Basophils 1 % 06/13/2024 9:51 AM TANK TR[employer] ENGINE MECHANIC [facility] % Immature Granulocytes 1 % 06/13/2024 9:51 AM TANK TR[employer] ENGINE MECHANIC [facility] NRBCs per 100 WBC 0 <1 /100 025 9:51 AM TANK TR[employer] ENGINE MECHANIC [facility] Absolute Neutrophils 6.7 1.6 - 8.3 10e3/uL 06/13/2024 9:51 AM TANK TR[employer] ENGINE MECHANIC [facility] Absolute Lymphocytes 7.2(H) 0.8 - 5.3 10e3/uL 06/13/2024 9:51 AM TANK TR[employer] ENGINE MECHANIC [facility] Absolute Monocytes 2.2(H) 0.0 - 1.3 10e3/uL 06/13/2024 9:51 AM TANK TR[employer] ENGINE MECHANIC [facility] Absolute Eosinophils 0.5 0.0 - 0.7 10e3/uL 06/13/2024 9:51 AM TANK TR[employer] ENGINE MECHANIC [facility] Absolute Basophils 0.2 0.0 - 0.2 10e3/uL 06/13/2024 9:51 AM TANK TR[employer] ENGINE MECHANIC [facility] Absolute Immature Granulocytes 0.1 <=0.4 10e3/uL 06/13/2024 9:51 AM TANK TR[employer] ENGINE MECHANIC [facility] Absolute NRBCs 0.1 10e3/uL 06/13/2024 9:51 AM TANK TR[employer] ENGINE MECHANIC [facility] Blood VENOUS LINE / Unknown IVAD (Port) / Unknown 06/13/2024 6:00 AM TANK TR[employer] ENGINE MECHANIC 06/13/2024 6:16 AM TANK TRUCK ENGINE MECHANIC Narrative [facility] - 06/13/2024 9:51 AM TANK TRUCK ENGINE MECHANIC Sent for review by Pathologist. See Pathologist comments after review. Tech Comments Patient Diagnosis: Sickle Cell crisis Reason for Sending: absolute lymphocyte > 5.4 Laquita Kelley MD LAB - BLOOD ORDERABLES Final Re sult [facility] Specialty Lab [address] [facility], [address] [phone] [place] [facility] [address] [facility], [address] * (ABNORMAL) Basic metabolic panel (06/13/2024 5:59 AM TANK TR[employer] ENGINE MECHANIC) Sodium 135 135 - 145 mmol/L 06/13/2024 6:45 AM TANK TR[employer] ENGINE MECHANIC [facility] Potassium 4.3 3.4 - 5.3 mmol/L 06/13/2024 6:45 AM TANK TR[employer] ENGINE MECHANIC [facility] Chloride 105 98 - 107 mmol/L 06/13/2024 6:45 AM TANK TR[employer] ENGINE MECHANIC [facility] Carbon Dioxide (CO2) 21(L) 22 - 29 mmol/L 06/13/2024 6:45 AM TANK TR[employer] ENGINE MECHANIC [facility] Anion Gap 9 7 - 15 mmol/L 06/13/2024 6:45 AM TANK TR[employer] ENGINE MECHANIC [facility] Urea Nitrogen 4.9(L) 6.0 - 20.0 mg/dL 06/13/2024 6:45 AM TANK TR[employer] ENGINE MECHANIC [facility] Creatinine 0.70 0.51 - 0.95 mg/dL 06/13/2024 6:45 AM TANK TR[employer] ENGINE MECHANIC [facility] GFR Estimate >90 >60 mL/min/1.7 3m2 06/13/2024 6:45 AM TANK TR[employer] ENGINE MECHANIC [facility] Comment:eGFR calculated us2020 CKD-EPI equation. Calcium 8.7(L) 8.8 - 10.4 mg/dL 06/13/2024 6:45 AM TANK TR[employer] ENGINE MECHANIC [facility] Glucose 100(H) 70 - 99 mg/dL 06/13/2024 6:45 AM TANK TR[employer] ENGINE MECHANIC [facility] Blood VENOUS LINE / Unknown IVAD (Port) / Unknown 06/13/2024 5:59 AM TANK TRUCK ENGINE MECHANIC 06/13/2024 6:16 AM TANK TR[employer] ENGINE MECHANIC us Laquita Kelley MD LAB - BLOOD ORDERABLES Final Re sult [facility] [place] [facility] [address] [facility] [address], [address] [place] [address] * Respiratory Panel PCR (06/12/2024 9:34 PM TANK TR[employer] ENGINE MECHANIC) Adenovirus Not Detected Not Detected 06/12/2024 11:53 PM TANK TR[employer] ENGINE MECHANIC [facility] Coronavirus Not Detected Not Detected 06/12/2024 11:53 PM TANK TRUCK ENGINE MECHANIC [facility] Comment:This test detects Co ronavirus 229E, HKU1, NL63 and OC43 but does not distinguish between them. It does not detect MERS ( Respiratory Syndrome), SARS (Severe Acute Respiratory Syndrome) or 2019-nCoV (Novel 2019) Coronavirus. Human Metapneumovirus Not Detected Not Detected 06/12/2024 11:53 PM TANK TR[employer] ENGINE MECHANIC [facility] Human Rhin/Enterovirus Not Detected Not Detected 06/12/2024 11:53 PM TANK TR[employer] ENGINE MECHANIC [facility] Influenza A Not Detected Not Detected 06/12/2024 11:53 PM TANK TR[employer] ENGINE MECHANIC [facility] Influenza A, H1 Not Detected Not Detected 06/12/2024 11:53 PM TANK TR[employer] ENGINE MECHANIC [facility] Influenza A 2009 H1N1 Not Detected Not Detected 06/12/2024 11:53 PM TANK TR[employer] ENGINE MECHANIC [facility] Influenza A, H3 Not Detected Not Detected 06/12/2024 11:53 PM TANK TR[employer] ENGINE MECHANIC [facility] Influenza B Not Detected Not Detected 06/12/2024 11:53 PM TANK TRUCK ENGINE MECHANIC [facility] Parainfluenza Virus 1 Not Detected Not Detected 06/12/2024 11:53 PM TANK TRUCK ENGINE MECHANIC [facility] Parainfluenza Virus 2 Not Detected Not Detected 06/12/2024 11:53 PM TANK TRUCK ENGINE MECHANIC [facility] Parainfluenza Virus 3 Not Detected Not Detected 06/12/2024 11:53 PM TANK TRUCK ENGINE MECHANIC [facility] Parainfluenza Virus 4 Not Detected Not Detected 06/12/2024 11:53 PM TANK TRUCK ENGINE MECHANIC [facility] Respiratory Syncytial Virus A Not Detected Not Detected 06/12/2024 11:53 PM TANK TRUCK ENGINE MECHANIC [facility] Respiratory Syncytial Virus B Not Detected Not Detected 06/12/2024 11:53 PM TANK TRUCK ENGINE MECHANIC [facility] Chlamydia Pneumoniae Not Detected Not Detected 06/12/2024 11:53 PM TANK TRUCK ENGINE MECHANIC [facility] Mycoplasma Pneumoniae Not Detected Not Detected 06/12/2024 11:53 PM TANK TRUCK ENGINE MECHANIC [facility] Swab NASOPHARYNGEAL STRUCTURE / Unknown Non-blood Collection / Unknown 06/12/2024 9:34 PM TANK TRUCK ENGINE MECHANIC 06/12/2024 9:47 PM TANK TRUCK ENGINE MECHANIC Narrative [facility] - 06/12/2024 11:53 PM TANK TRUCK ENGINE MECHANIC The ePlex Respiratory Panel is a qualitative nucleic acid, multiplex, in vitro diagnostic test for the simultaneous detection and identification of multiple respiratory viral and bacterial nucleic acids in nasopharyngeal swabs collected in viral transport media from individual exhibiting signs and symptoms of respiratory infection. The assay has received FDA approval for the testing of nasopharyngeal (SHORE MAN) swabs only. This test is used for clinical purposes and should not be regarded as investigational or for research. This laboratory is certified under the Clinical Laboratory Improvement Amendments of 1988 (CLIA-88) as qualified to perform high complexity clinical laboratory testing. Abdelrahman Goddard MD LAB - MICRO GENERAL ORDERABLES Final Result [facility] Inf. Diseases Diag. Lab [address] [facility], [address] [place] [phone] * Blood Culture Peripheral Blood (06/12/2024 8:46 PM TANK TRUCK ENGINE MECHANIC) Culture No Growth 06/17/2024 9:31 PM TANK TRUCK ENGINE MECHANIC [facility] Blood BLOOD SPECIMEN / Unknown Venipuncture / Unknown 06/12/2024 8:46 PM TANK TRUCK ENGINE MECHANIC 06/12/2024 8:53 PM TANK TRUCK ENGINE MECHANIC Narrative [facility] - 06/17/2024 9:31 PM TANK TRUCK ENGINE MECHANIC Only an Aerobic Blood Culture Bottle was collected, interpret results with caution. us Abdelrahman Goddard MD LAB - MICRO GENERAL ORDERABLES Final Result [facility] Inf. Diseases Diag. Lab [address] [facility], [address] * Blood Culture Peripheral Blood (06/12/2024 8:46 PM TANK TRUCK ENGINE MECHANIC) Culture No Growth 06/17/2024 9:31 PM TANK TRUCK ENGINE MECHANIC [facility] Blood BLOOD SPECIMEN / Unknown Venipuncture / Unknown 06/12/2024 8:46 PM TANK TRUCK ENGINE MECHANIC 06/12/2024 8:53 PM TANK TRUCK ENGINE MECHANIC us Abdelrahman Goddard MD LAB - MICRO GENERAL ORDERABLES Final Result Performing Organization Address City/[facility]/ZIP Co de Phone Number [facility] Inf. Diseases Diag. Lab [address] [facility], [address] * XR Chest 2 Views (06/12/2024 7:38 PM TANK TRUCK ENGINE MECHANIC) Anatomical Region Laterality Modality Chest Computed Radiogr aphy 06/12/2024 7:38 PM TANK TR[employer] ENGINE MECHANIC Impressions 06/12/2024 7:42 PM TANK TR[employer] ENGINE MECHANIC IMPRESSION: A few faint peripheral reticulonodular opacities in the mid and lower lungs again seen. Lungs otherwise clear. No pleural effusion. No pneumothorax. Borderline cardiac enlargement unchanged. Port anterior right chest wall with right IJ central venous catheter tip low SVC. Port anterior left chest wall with left IJ central venous catheter tip low SVC. Narrative 06/12/2024 7:42 PM TANK TRUCK ENGINE MECHANIC EXAM: XR CHEST 2 VIEWS LOCATION: [facility] DATE: 06/12/2024 INDICATION: CP COMPARISON: 06/03/2024, 05/27/2024 Procedure Note Surendra Hou MD - 06/12/2024 EXAM: XR CHEST 2 VIEWS LOCATION: [facility] DATE: 06/12/2024 INDICATION: CP COMPARISON: 06/03/2024, [...] Adult Type and Screen (06/12/2024 7:17 PM TANK TRUCK ENGINE MECHANIC) Pathologist [facility] ABO/RH(D) A POS 06/13/2024 9:17 AM TANK TRUCK ENGINE MECHANIC [facility] Antibody Screen Negative Negative 06/13/2024 9:17 AM TANK TRUCK ENGINE MECHANIC [facility] Comment:Current antibody scr een is negative. Patient has a history of antibody(ies). A delay in compatible red blood cells may occur. SPECIMEN EXPIRATION DATE [id number] 06/13/2024 9:17 AM TANK TRUCK ENGINE MECHANIC [facility] Blood BLOOD SPECIMEN / Unknown Venipuncture / Unknown 06/12/2024 7:17 PM TANK TRUCK ENGINE MECHANIC 06/12/2024 7:32 PM TANK TR[employer] ENGINE MECHANIC Carmen Aviles PA-C LAB - BLOOD BANK TEST ORDER Final Result BLOOD BANK [address] [place] [address] * (ABNORMAL) RBC and Platelet Morphology (06/12/2024 7:17 PM TANK TRUCK ENGINE MECHANIC) Pathologist [facility] RBC Morphology Confirmed RBC Indices 06/12/2024 8:57 PM TANK TRUCK ENGINE MECHANIC [facility] Platelet Assessment Automated Count Confirmed. Platelet morphology is normal. Automated Count Confirmed. Platelet morphology is normal. 06/12/2024 8:57 PM TANK TRUCK ENGINE MECHANIC [facility] Polychromasia Slight(A) None Seen 06/12/2024 8:57 PM TANK TR[employer] ENGINE MECHANIC [facility] Sickle Cells Moderate(A) None Seen 06/12/2024 8:57 PM TANK TR[employer] ENGINE MECHANIC [facility] Target Cells Moderate(A) None Seen 06/12/2024 8:57 PM TANK TR[employer] ENGINE MECHANIC [facility] Blood BLOOD SPECIMEN / Unknown Venipuncture / Unknown 06/12/2024 7:17 PM TANK TR[employer] ENGINE MECHANIC 06/12/2024 7:32 PM TANK TRUCK ENGINE MECHANIC us Abdelrahman Goddard MD LAB - BLOOD ORDERABLES Final R esult [facility] [place] [facility] [address] [facility], [address] [phone] * (ABNORMAL) CBC with platelets and differential (06/12/2024 7:17 PM TANK TRUCK ENGINE MECHANIC) Pathologist [facility] WBC Count 12.5(H) 4.0 - 11.0 10e3/uL 06/12/2024 7:54 PM TANK TRUCK ENGINE MECHANIC [facility] RBC Count 2.44(L) 3.80 - 5.20 10e6/uL 06/12/2024 7:54 PM TANK TRUCK ENGINE MECHANIC [facility] Hemoglobin 7.5(L) 11.7 - 15.7 g/dL 06/12/2024 7:54 PM TANK TR[employer] ENGINE MECHANIC [facility] Hematocrit 22.2(L) 35.0 - 47.0 % 06/12/2024 7:54 PM TANK TR[employer] ENGINE MECHANIC [facility] MCV 91 78 - 100 fL 06/12/2024 7:54 PM TANK TRUCK ENGINE MECHANIC [facility] MCH 30.7 26.5 - 33.0 pg 06/12/2024 7:54 PM TANK TRUCK ENGINE MECHANIC [facility] MCHC 33.8 31.5 - 36.5 g/dL 06/12/2024 7:54 PM TANK TRUCK ENGINE MECHANIC [facility] RDW 19.5(H) 10.0 - 15.0 % 06/12/2024 7:54 PM TANK TRUCK ENGINE MECHANIC [facility] Platelet Count 542(H) 150 - 450 10e3/uL 06/12/2024 7:54 PM TANK TRUCK ENGINE MECHANIC [facility] % Neutrophils 57 % 06/12/2024 7:54 PM TANK TRUCK ENGINE MECHANIC [facility] % Lymphocytes 24 % 06/12/2024 7:54 PM TANK TRUCK ENGINE MECHANIC [facility] % Monocytes 16 % 06/12/2024 7:54 PM TANK TRUCK ENGINE MECHANIC [facility] % Eosinophils 1 % 06/12/2024 7:54 PM TANK TRUCK ENGINE MECHANIC [facility] % Basophils 1 % 06/12/2024 7:54 PM TANK TRUCK ENGINE MECHANIC [facility] % Immature Granulocytes 0 % 06/12/2024 7:54 PM TANK TR[employer] ENGINE MECHANIC [facility] NRBCs per 100 WBC 1(H) <1 /100 025 7:54 PM TANK TR[employer] ENGINE MECHANIC [facility] Absolute Neutrophils 7.1 1.6 - 8.3 10e3/uL 06/12/2024 7:54 PM TANK TRUCK ENGINE MECHANIC [facility] Absolute Lymphocytes 3.0 0.8 - 5.3 10e3/uL 06/12/2024 7:54 PM TANK TRUCK ENGINE MECHANIC [facility] Absolute Monocytes 2.0(H) 0.0 - 1.3 10e3/uL 06/12/2024 7:54 PM TANK TRUCK ENGINE MECHANIC [facility] Absolute Eosinophils 0.2 0.0 - 0.7 10e3/uL 06/12/2024 7:54 PM TANK TRUCK ENGINE MECHANIC [facility] Absolute Basophils 0.2 0.0 - 0.2 10e3/uL 06/12/2024 7:54 PM TANK TRUCK ENGINE MECHANIC [facility] Absolute Immature Granulocytes 0.1 <=0.4 10e3/uL 06/12/2024 7:54 PM TANK TRUCK ENGINE MECHANIC [facility] Absolute NRBCs 0.1 10e3/uL 06/12/2024 7:54 PM TANK TR[employer] ENGINE MECHANIC [facility] Blood BLOOD SPECIMEN / Unknown Venipuncture / Unknown 06/12/2024 7:17 PM TANK TR[employer] ENGINE MECHANIC 06/12/2024 7:32 PM TANK TR[employer] ENGINE MECHANIC us Abdelrahman Goddard MD LAB - BLOOD ORDERABLES Final R esult [facility] [place] [facility] [address] [facility] [phone] * (ABNORMAL) Blood gas venous (06/12/2024 7:17 PM TANK TR[employer] ENGINE MECHANIC) pH Venous 7.38 7.32 - 7.43 06/12/2024 7:40 PM TANK TR[employer] ENGINE MECHANIC [facility] pCO2 Venous 42 40 - 50 mm Hg 06/12/2024 7:40 PM TANK TR[employer] ENGINE MECHANIC [facility] pO2 Venous 35 25 - 47 mm Hg 06/12/2024 7:40 PM TANK TR[employer] ENGINE MECHANIC [facility] Bicarbonate Venous 24 21 - 28 mmol/L 06/12/2024 7:40 PM TANK TR[employer] ENGINE MECHANIC [facility] Base Excess/Deficit Venous -0.9 -3.0 - 3.0 mmol/L 06/12/2024 7:40 PM [employer] [facility] FIO2 21 JARET 06/12/2024 7:40 PM [employer] [facility] Oxyhemoglobin Venous 61(L) 70 - 75 % 06/12/2024 7:40 PM [employer] [facility] O2 Sat, Venous 63.9(L) 70.0 - 75.0 % 06/12/2024 7:40 PM [employer] [facility] Blood, venous VENOUS LINE / Unknown Venipuncture / Unknown 06/12/2024 7:17 PM [employer] 06/12/2024 7:30 PM [employer] Narrative [facility] - 06/12/2024 7:40 PM [employer] In healthy individuals, oxyhemoglobin (O2Hb) and oxygen saturation (SO2) are approximately equal. In the presence of dyshemoglobins, oxyhemoglobin can be considerably lower than oxygen saturation. us Abdelrahman Goddard MD LAB - BLOOD ORDERABLES Final R esult [facility] [address] [phone] * Troponin T, High Sensitivity (06/12/2024 7:17 PM [employer]) Pathologist [facility] Troponin T, High Sensitivity <6 <=14 ng/L 06/12/2024 8:03 PM [employer] [facility] Comment: Either a High Sensitivity [...] Unknown Venipuncture / Unknown 06/12/2024 7:17 PM [employer] 06/12/2024 7:32 PM [employer] us Abdelrahman Goddard MD LAB - BLOOD ORDERABLES Final R esult [facility] [place] [facility] [address] [phone] * (ABNORMAL) Basic metabolic panel (06/12/2024 7:17 PM [employer]) Sodium 139 135 - 145 mmol/L 06/12/2024 8:03 PM [employer] [facility] Potassium 4.3 3.4 - 5.3 mmol/L 06/12/2024 8:03 PM [employer] [facility] Chloride 109(H) 98 - 107 mmol/L 06/12/2024 8:03 PM [employer] [facility] Carbon Dioxide (CO2) 21(L) 22 - 29 mmol/L 06/12/2024 8:03 PM [employer] [facility] Anion Gap 9 7 - 15 mmol/L 06/12/2024 8:03 PM [employer] [facility] Urea Nitrogen 5.9(L) 6.0 - 20.0 mg/dL 06/12/2024 8:03 PM [employer] [facility] Creatinine 0.61 0.51 - 0.95 mg/dL 06/12/2024 8:03 PM TANK TRUCK ENGINE MECHANIC [facility] GFR Estimate >90 >60 mL/min/1.7 3m2 06/12/2024 8:03 PM TANK TRUCK ENGINE MECHANIC [facility] Comment:eGFR calculated 2020 CKD-EPI equation. Calcium 9.4 8.8 - 10.4 mg/dL 06/12/2024 8:03 PM TANK TRUCK ENGINE MECHANIC [facility] Glucose 97 70 - 99 mg/dL 06/12/2024 8:03 PM TANK TRUCK ENGINE MECHANIC [facility] Blood BLOOD SPECIMEN / Unknown Venipuncture / Unknown 06/12/2024 7:17 PM TANK TRUCK ENGINE MECHANIC 06/12/2024 7:32 PM TANK TRUCK ENGINE MECHANIC us Abdelrahman Goddard MD LAB - BLOOD ORDERABLES Final R esult [facility] [place] [facility] [address] [facility], [address] * (ABNORMAL) INR (06/12/2024 7:17 PM TANK TRUCK ENGINE MECHANIC) INR 1.37(H) 0.85 - 1.15 06/12/2024 7:54 PM TANK TRUCK ENGINE MECHANIC [facility] Blood BLOOD SPECIMEN / Unknown Venipuncture / Unknown 06/12/2024 7:17 PM TANK TRUCK ENGINE MECHANIC 06/12/2024 7:32 PM TANK TRUCK ENGINE MECHANIC Abdelrahman Goddard MD LAB - BLOOD ORDERABLES Final R esult [facility] [address] [facility], [address] [place] [address] * EKG 12-lead, tracing only (06/12/2024 6:37 PM TANK TRUCK ENGINE MECHANIC) Systolic Blood Pressure mmHg RADIOLOGY RESULTS Diastolic Blood Pressure mmHg RADIOLOGY RESULTS Ventricular Rate 94 BPM RAD IOLOGY RESULTS Atrial Rate 94 BPM RADIOLOG Y RESULTS NE Interval 146 ms RADIOLOG Y RESULTS QRS Duration 84 ms RADIOLO GY RESULTS QT 346 ms RADIOLOGY RESULTS QTc 432 ms RADIOLOGY RESULTS P [place] 31 degrees RADIOLOGY RESULTS R AXIS 85 degrees RADIOLOGY RESULTS T [place] 36 degrees RADIOLOGY RESULTS Interpretation ECG Sinus rhythm Normal ECG Unconfirmed report - interpretation of this ECG is computer generated - see medical record for final interpretation Confirmed by - EMERGENCY ROOM, PHYSICIAN ([id number]), film and video editor CLAUDIO ASTORGA ([id number]) on 06/13/2024 7:17:59 AM RADIOLOGY RESULTS 06/12/2024 6:37 PM TANK TRUCK ENGINE MECHANIC 06/13/2024 7:17 AM TANK TRUCK ENGINE MECHANIC Alex Morton MD ECG ORDERABLES Edited Resul [...] within 2 weeks. $Given 06/15/2024 8:05 AM TANK TRUCK ENGINE MECHANIC 2 puffs $Given 06/14/2024 7:59 PM TANK TRUCK ENGINE MECHANIC 2 puffs $Given 06/14/2024 4:39 PM TANK TRUCK ENGINE MECHANIC 2 puffs albuterol (PROVENTIL HFA/VENTOLIN HFA) inhaler [...] Indications: SepsisIndications:Sepsis $New Bag 06/12/2024 9:31 PM TANK TRUCK ENGINE MECHANIC 500 mg 250 mL /hr azithromycin (ZITHROMAX) 500 mg in sodium chloride 0.9 % 250 mL intermittent infusion Routine, 500 mg, Intravenous, EVERY 24 HOURS, First dose on Wed06/13/24 at 2100, Indications: Acute chest syndromeIndications:Acute chest syndrome $New Bag 06/13/2024 10:04 PM TANK TRUCK ENGINE MECHANIC 500 mg azithromycin (ZITHROMAX) tablet 500 mg Routine, 500 mg, Oral, DAILY, First dose on Wed06/14/24 at 1200, Indications: Community Acquired PneumoniaIndications:Community Acquired Pneumonia $Given 06/15/2024 8:05 AM TANK TRUCK ENGINE MECHANIC 500 mg $Given 06/14/2024 12:38 PM TANK TRUCK ENGINE MECHANIC 500 mg cefTRIAXone (ROCEPHIN) 1 g vial to attach to NS 100 mL bag for ADULTS or NS 50 mL bag for PEDS STAT, 1 g, Intravenous, ONCE, On Wed06/12/24 at 2005, For 1 dose, Lactated Ringer's solution is not compatible with ceftriaxone for injection, Indications: SepsisIndications:Sepsis $New Bag 06/12/2024 8:39 PM TANK TRUCK ENGINE MECHANIC 1 g cefTRIAXone (ROCEPHIN) 2 g vial to attach to NS 100 ml bag for ADULTS or NS 50 ml bag for PEDS Routine, 2 g, Intravenous, EVERY 24 HOURS, First dose on Wed06/13/24 at 2000, Lactated Ringer's solution is not compatible with ceftriaxone for injection, Indications: Acute chest syndromeIndications:Acute chest syndrome $New Bag 06/14/2024 8:00 PM TANK TRUCK ENGINE MECHANIC 2 g $New Bag 06/13/2024 8:16 PM TANK TRUCK ENGINE MECHANIC 2 g diclofenac (VOLTAREN) 1 % topical gel 2 g 2 g, Topical, 4 TIMES DAILY PRN, inflammatory pain, Starting on Wed06/14/24 at 0912, Apply to area of pain. Use supplied dosing card to measure dose. $Given 06/15/2024 8:10 AM TANK TRUCK ENGINE MECHANIC 2 g $Given 06/14/2024 12:38 PM TANK TRUCK ENGINE MECHANIC 2 g diphenhydrAMINE (BENADRYL) capsule 25 mg 25 mg, Oral, EVERY 6 HOURS PRN, itching, Starting on Wed06/12/24 at 2139 $Given 06/14/2024 12:38 PM TANK TRUCK ENGINE MECHANIC 25 mg $Given 06/13/2024 10:54 PM TANK TRUCK ENGINE MECHANIC 25 mg $Given 06/13/2024 12:12 PM TANK TRUCK ENGINE MECHANIC 25 mg diphenhydrAMINE (BENADRYL) injection 25 mg 25 mg, Intravenous, EVERY 6 HOURS PRN, itching, Starting on Wed06/12/24 at 2139 $Given 06/13/2024 5:39 AM TANK TRUCK ENGINE MECHANIC 25 mg $Given 06/12/2024 10:41 PM TANK TRUCK ENGINE MECHANIC 25 mg enoxaparin ANTICOAGULANT (LOVENOX) injection 40 mg 40 mg, Subcutaneous, EVERY 24 HOURS, First dose on Wed06/13/24 at 0800, Contact provider if platelet count drops by 50% or more after enoxaparin initiation OR if platelet count falls below 50 x 10e3/uL $Given 06/15/2024 7:59 AM TANK TRUCK ENGINE MECHANIC 40 mg $Given 06/14/2024 8:29 AM TANK TRUCK ENGINE MECHANIC 40 mg $Given 06/13/2024 7:49 AM TANK TRUCK ENGINE MECHANIC 40 mg FLUoxetine (PROzac) capsule 10 mg 10 mg, Oral, DAILY, First dose on Wed06/13/24 at 0800 $Given 06/14/2024 2:37 PM TANK TRUCK ENGINE MECHANIC 10 mg $Given 06/13/2024 7:50 AM TANK TRUCK ENGINE MECHANIC 10 mg folic acid (FOLVITE) tablet 1 mg 1 mg, Oral, DAILY, First dose on Wed06/13/24 at 0800 $Given 06/15/2024 8:05 AM TANK TRUCK ENGINE MECHANIC 1 mg $Given 06/14/2024 8:29 AM TANK TRUCK ENGINE MECHANIC 1 mg $Given 06/13/2024 7:49 AM TANK TRUCK ENGINE MECHANIC 1 mg heparin lock flush 10 unit/mL [...] For 1 dose $Given 06/12/2024 7:24 PM TANK TRUCK ENGINE MECHANIC 2 mg hydromorphone (DILAUDID) injection 2 mg 2 mg, Intravenous, ONCE, On Wed06/12/24 at 2010, For 1 dose $Given 06/12/2024 8:14 PM TANK TRUCK ENGINE MECHANIC 2 mg hydromorphone (DILAUDID) injection 2 mg 2 mg, Intravenous, EVERY 3 HOURS PRN, moderate pain, IF patient cannot take oral opioid OR IF pain not managed with non-pharmacological, non-opioid, or oral opioid interventions if ordered, Starting on Wed06/12/24 at 2237, May use concomitant with non-opioid analgesics. $Given 06/12/2024 11:31 PM TANK TRUCK ENGINE MECHANIC 2 mg hydromorphone (DILAUDID) injection 2 mg 2 mg, Intravenous, ONCE, On Wed06/12/24 at 2135, For 1 dose $Given 06/12/2024 9:46 PM TANK TRUCK ENGINE MECHANIC 2 mg hydromorphone (DILAUDID) injection 2 mg 2 mg, Intravenous, EVERY 2 HOURS PRN, moderate pain, IF patient cannot take oral opioid OR IF pain not managed with non-pharmacological, non-opioid, or oral opioid interventions if ordered, Starting on Wed06/13/24 at 0132, May use concomitant with non-opioid analgesics. $Given 06/14/2024 12:38 PM TANK TRUCK ENGINE MECHANIC 2 mg $Given 06/14/2024 10:31 AM TANK TRUCK ENGINE MECHANIC 2 mg $Given 06/14/2024 8:29 AM TANK TRUCK ENGINE MECHANIC 2 mg hydromorphone (DILAUDID) injection 2 mg 2 mg, Intravenous, EVERY 2 HOURS, First dose (after last modification) on Wed06/14/24 at 1415, May use concomitant with non-opioid analgesics. $Given 06/15/2024 7:58 AM TANK TRUCK ENGINE MECHANIC 2 mg $Given 06/15/2024 6:01 AM TANK TRUCK ENGINE MECHANIC 2 mg $Given 06/15/2024 4:11 AM TANK TRUCK ENGINE MECHANIC 2 mg hydroxyurea (HYDREA) capsule 1,000 mg 1,000 mg, Oral, 2 TIMES DAILY, First dose on Wed06/12/24 at 2330, Indications: sickle cell anemia, Do not crush May require hepatic and/or renal dose or frequency adjustments. See reference link for guidelines.Indications:sickle cell anemia $Given 06/15/2024 8:06 AM TANK TRUCK ENGINE MECHANIC 1,000 mg $Given 06/14/2024 8:00 PM TANK TRUCK ENGINE MECHANIC 1,000 mg $Given 06/14/2024 8:30 AM TANK TRUCK ENGINE MECHANIC 1,000 mg lactated ringers infusion at 75 mL/hr, Intravenous, CONTINUOUS, Starting on Wed06/12/24 at 2240, Until Wed06/13/24 at 0839 Rate/Dose Verify 06/13/2024 7:02 AM TANK TRUCK ENGINE MECHANIC 75 mL/hr Rate/Dose Verify 06/13/2024 4:52 AM TANK TRUCK ENGINE MECHANIC 75 mL/h r Rate/Dose Verify 06/13/2024 1:35 AM TANK TRUCK ENGINE MECHANIC 75 mL/h r Lidocaine (LIDOCARE) 4 % [...] Wed06/12/24 at 2138 $Given 06/13/2024 1:28 AM TANK TRUCK ENGINE MECHANIC 5 mg menthol (ICY HOT) 5 % [...] Liquid not required. $Given 06/14/2024 9:20 AM TANK TRUCK ENGINE MECHANIC 4 mg ondansetron (ZOFRAN) injection 4 mg 4 mg, Intravenous, ONCE, Administer over 2-5 Minutes, On Wed06/12/24 at 1850, For 1 dose $Given 06/12/2024 7:24 PM TANK TRUCK ENGINE MECHANIC 4 mg ondansetron (ZOFRAN) injection 4 mg 4 mg, Intravenous, EVERY 6 HOURS PRN, nausea/vomiting - 1st line, Administer over 2-5 Minutes, Starting on Wed06/12/24 at 2237, Give IF patient unable to tolerate oral medication. This is Step 1 of nausea and vomiting management. If nausea not resolved in 15 minutes, go to Step 2 prochlorperazine (COMPAZINE). $Given 06/15/2024 4:19 AM TANK TRUCK ENGINE MECHANIC 4 mg senna-docusate (SENOKOT-S/PERICOLACE) 8.6-50 MG per [...] IV dormant line $Given 06/15/2024 6:32 AM TANK TRUCK ENGINE MECHANIC 3 mLs $Given 06/13/2024 8:37 PM TANK TRUCK ENGINE MECHANIC 3 mLs $Given 06/13/2024 2:12 PM TANK TRUCK ENGINE MECHANIC 3 mLs sodium chloride (PF) 0.9% PF flush 3 mL 3 mL, Intracatheter, EVERY 1 MIN PRN, line flush, other, to ensure patency or to lock dormant line, Starting on Wed06/12/24 at 2237 $Given 06/14/2024 2:4 2 PM TANK TRUCK ENGINE MECHANIC 3 mLs $Given 06/14/2024 8:30 AM TANK TRUCK ENGINE MECHANIC 3 mLs $Given 06/14/2024 1:32 AM TANK TRUCK ENGINE MECHANIC 3 mLs sodium chloride 0.9% BOLUS 1,000 mL Intravenous, 1,000 mL, ONCE, at 1,000 mL/hr, Administer over 1 Hours, On Wed06/12/24 at 1850, For 1 dose $New Bag 06/12/2024 7:22 PM TANK TRUCK ENGINE MECHANIC 1,000 mLs 1000 mL/hr documented in this encounter Active and Recently Administered Medications Times are shown in TANK TRUCK ENGINE MECHANIC. Scheduled Medication Order 06/13/2024 06/14/2024 06/15/2024 albuterol [...] RN) 1999 ($New Bag - Provider: Kathy Lvey, SOFIA) 0142 (Stopped - Provider: Kathy Levy, SOFIA) enoxaparin ANTICOAGULANT (LOVENOX) injection 40 mg 40 [...] Caal, SOFIA)2037 ($Given - Provider: Geovanna Dean, SOFIA) 0640 [...] 0920 ($Given - Provider: Clay Avina RN) 8671 (See Alternative - Provider: aKthy Levy, SOFIA) ondansetron (ZOFRAN) injection 4 mg(Linked [...] (See Alternative - Provider: Clay Avina RN) 0417 ($Given - Provider: Kathy Levy RN) senna-docusate [...] stools. documented in this encounter Care Teams Labeler Relationship Specialty Start Date End Date No Ref-Primary, Physician PCP - General 03/15/24 06/17/24 Mor Ramsey Medical Student 04/03/24 Case Samuel MD [address] [place] [address] [address], [address] [place] [address] Assigned Pediatric Specialist Provider 05/18/24 Juhi Benson, RN Specialty Project Management Hematology & Oncology 05/29/24 documented as of this encounter
--- OUTSIDE RECORDS SUMMARY | 2024-06-24 20:55 | XMS_ITS | Encounter Summary ---
Author Organization [facility] Address [address] [place] [address]. [place] [address] Care Team Providers Care Account Services Representative Name Role Phone No Ref-Primary, Physician Primary Care Provider Mor Ramsey Unavailable Unavailable Case Samuel MD Unavailable [phone] Juhi Benson RN Unavailable Unavailable Encounter Details [...] on file Legal Sex Female 8:25 AM RAKE OPERATOR Gender Identity Not on file Sexual Orientation Not on file documented as of this encounter Plan of Treatment Not on file documented as of this encounter Goals Goal Patient Goal Type Associated Problems Recent Progress Patient-Stated? Author Pain Management General On track( 025 12:40 PM RAKE OPERATOR) Yes Juhi Benson RN Note: Goal [...] on filedocumented in this encounter Care Teams Account Services Representative Relationship Specialty Start Date End Date No Ref-Primary, Physician PCP - General 03/15/24 06/17/24 Mor Ramsey Medical Student 04/03/24 Case Samuel MD [address] [place] [address] [address], [address] [place] [address] Assigned Pediatric Specialist Provider 05/18/24 Juhi Benson RN Specialty Editor School Photograph Hematology & Oncology 05/29/24 documented as of this encounter
--- OUTSIDE RECORDS SUMMARY | 2024-06-24 20:55 | XMS_ITS | Encounter Summary ---
Author Organization [facility] Address [address] [place] [address] Care Team Providers Care Vice President Research Name Role Phone [employer] Unavailable Unavailable Case Samuel MD Unavailable [phone] Juhi Benson RN Unavailable Unavailable Veronica Joseph MD Primary Care Provider [phone] Reason for Visit * Reason Comments Sickle Cell Pain Crisis Pt reports pain in back and b/l legs Encounter Details Date Type Department Care Team (Late st Contact Info) Description 06/23/2024 6:03 PM AIRCRAFT COMMUNICATOR - 06/23/2024 9:47 PM AIRCRAFT COMMUNICATOR Emergency [facility] Emergency Department [address] [place] [phone] Dayna Crane MD [address] [address] Sickle cell disease with crisis (H) Discharge [...] in an overnight half-way, or couch-surfing.) Yes 06/20/2024 Are you worried [...] on file Legal Sex Female 8:25 AM AIRCRAFT COMMUNICATOR Gender Identity Not on file Sexual Orientation Not on file documented as of this encounter Last Filed Vital Signs Vital Sign Reading Time Taken Comments Blood Pressure 114/66 06/23/2024 7:49 PM AIRCRAFT COMMUNICATOR Pulse 100 06/23/2024 5:53 PM AIRCRAFT COMMUNICATOR Temperature 36.7 C (98 F) 06/23/2024 7:49 PM AIRCRAFT COMMUNICATOR Respiratory Rate 16 06/23/2024 7:49 PM AIRCRAFT COMMUNICATOR Oxygen Saturation 99% 06/23/2024 7:49 PM AIRCRAFT COMMUNICATOR Inhaled Oxygen Concentration - - Weight 52.2 kg (115 lb) 06/23/2024 5:53 PM AIRCRAFT COMMUNICATOR Height 154.9 cm (5' 1) 06/23/2024 5:53 PM AIRCRAFT COMMUNICATOR Body Mass Index 21.73 06/23/2024 5:53 PM AIRCRAFT COMMUNICATOR documented in this encounter Discharge Instructions * Discharge Instructions* Dayna Crane MD - 06/23/2024 9:00 PM AIRCRAFT COMMUNICATOR Please make an appointment to follow up with Your Primary Care Provider in 2-3 days. RAFT COMMUNICATOR RAFT COMMUNICATOR * Attachments The following attachments cannot be sent through Care Everywhere. * Sickle Cell Crisis ([place]ai[place]ese) documented in this encounter Medications at Time [...] 05/01/2024 naloxone (NARCAN) 4 MG/0.1ML nasal spray [place] 1 spray (4 mg) into one nostril alternating nostrils as needed for opioid reversal (for opiate overdose if not breathing and unconscious. have your family member watch video on how to use/read information sheet). every 2-3 minutes until assistance arrives 2 each 06/06/2024 documented as of this encounter ED Notes * Gela Booker - 06/23/2024 6:12 PM CST Bed: [facility] Expected date: Expected time: Means of arrival: Comments: X3 monitor: G42 RAFT COMMUNICATOR * Melanie Menon RN - 06/23/2024 5:54 [...] WDL WDL Cognitive/Neuro/Behavioral WDL Cognitive/Neuro/Behavioral WDL WDL RAFT COMMUNICATOR documented in this encounter Plan of Treatment Not on file documented as of this encounter Goals Goal Patient Goal Type Associated Problems Recent Progress Patient-Stated? Author Pain Management General On track( 025 12:40 PM AIRCRAFT COMMUNICATOR) Yes Juhi Benson, RN Note: Goal Statement: [...] PLATELETS AND DIFFERENTIAL STAT 06/23/2024 6:22 PM AIRCRAFT COMMUNICATOR CBC WITH PLATELETS & DIFFERENTIAL STAT 06/23/2024 6:22 PM AIRCRAFT COMMUNICATOR HCG QUALITATIVE STAT 06/23/2024 6:22 PM AIRCRAFT COMMUNICATOR DIFFERENTIAL STAT 06/23/2024 6:22 PM AIRCRAFT COMMUNICATOR COMPREHENSIVE METABOLIC PANEL STAT 06/23/2024 6:22 PM AIRCRAFT COMMUNICATOR documented in this encounter Results * (ABNORMAL) Manual Differential (06/23/2024 6:22 PM AIRCRAFT COMMUNICATOR) Pathologist [facility] % Neutrophils 73 % 06/23/2024 7:05 PM AIRCRAFT COMMUNICATOR [facility] % Lymphocytes 24 % 06/23/2024 7:05 PM AIRCRAFT COMMUNICATOR [facility] % Monocytes 2 % 06/23/2024 7:05 PM AIRCRAFT COMMUNICATOR [facility] % Eosinophils 0 % 06/23/2024 7:05 PM AIRCRAFT COMMUNICATOR [facility] % Basophils 2 % 06/23/2024 7:05 PM AIRCRAFT COMMUNICATOR [facility] NRBCs per 100 WBC 12(H) <=0 % 06/23/2024 7:05 PM AIRCRAFT COMMUNICATOR [facility] Absolute Neutrophils 7.2 1.6 - 8.3 10e3/uL 06/23/2024 7:05 PM AIRCRAFT COMMUNICATOR [facility] Absolute Lymphocytes 2.3 0.8 - 5.3 10e3/uL 06/23/2024 7:05 PM AIRCRAFT COMMUNICATOR [facility] Absolute Monocytes 0.2 0.0 - 1.3 10e3/uL 06/23/2024 7:05 PM AIRCRAFT COMMUNICATOR [facility] Absolute Eosinophils 0.0 0.0 - 0.7 10e3/uL 06/23/2024 7:05 PM AIRCRAFT COMMUNICATOR [facility] Absolute Basophils 0.2 0.0 - 0.2 10e3/uL 06/23/2024 7:05 PM AIRCRAFT COMMUNICATOR [facility] Absolute NRBCs 1.2(H) <=0.0 10e3/uL 025 7:05 PM AIRCRAFT COMMUNICATOR [facility] RBC Morphology Confirmed RBC Indices 06/23/2024 7:05 PM AIRCRAFT COMMUNICATOR [facility] Platelet Assessment Automated Count Confirmed. Platelet morphology is normal. Automated Count Confirmed. Platelet morphology is normal. 06/23/2024 7:05 PM AIRCRAFT COMMUNICATOR [facility] Polychromasia Slight(A) None Seen 06/23/2024 7:05 PM AIRCRAFT COMMUNICATOR [facility] Sickle Cells Slight(A) None Seen 06/23/2024 7:05 PM AIRCRAFT COMMUNICATOR [facility] Target Cells Slight(A) None Seen 06/23/2024 7:05 PM AIRCRAFT COMMUNICATOR [facility] Blood BLOOD SPECIMEN / Unknown Venipuncture / Unknown 06/23/2024 6:22 PM AIRCRAFT COMMUNICATOR 06/23/2024 6:34 PM AIRCRAFT COMMUNICATOR us Dayna Crane MD LAB - BLOOD ORDERABLES Final Re sult [facility] [place] [facility] [address] [facility], [address] [place] [address] * (ABNORMAL) CBC with platelets and differential (06/23/2024 6:22 PM AIRCRAFT COMMUNICATOR) WBC Count 9.8 4.0 - 11.0 10e3/uL 06/23/2024 6:45 PM AIRCRAFT COMMUNICATOR [facility] RBC Count 2.49(L) 3.80 - 5.20 10e6/uL 06/23/2024 6:45 PM AIRCRAFT COMMUNICATOR [facility] Hemoglobin 8.0(L) 11.7 - 15.7 g/dL 06/23/2024 6:45 PM AIRCRAFT COMMUNICATOR [facility] Hematocrit 24.2(L) 35.0 - 47.0 % 06/23/2024 6:45 PM AIRCRAFT COMMUNICATOR [facility] MCV 97 78 - 100 fL 06/23/2024 6:45 PM AIRCRAFT COMMUNICATOR [facility] MCH 32.1 26.5 - 33.0 pg 06/23/2024 6:45 PM AIRCRAFT COMMUNICATOR [facility] MCHC 33.1 31.5 - 36.5 g/dL 06/23/2024 6:45 PM AIRCRAFT COMMUNICATOR [facility] RDW 18.8(H) 10.0 - 15.0 % 06/23/2024 6:45 PM AIRCRAFT COMMUNICATOR [facility] Platelet Count 482(H) 150 - 450 10e3/uL 06/23/2024 6:45 PM AIRCRAFT COMMUNICATOR [facility] Blood BLOOD SPECIMEN / Unknown Venipuncture / Unknown 06/23/2024 6:22 PM AIRCRAFT COMMUNICATOR 06/23/2024 6:34 PM AIRCRAFT COMMUNICATOR Dayna Crane MD LAB - BLOOD ORDERABLES Final Re sult Performing Organization Address City/[facility]/ZIP Co de Phone Number [facility] [place] [facility] [address] [facility], [address] [id number] [place] [address] * HCG qualitative Blood (06/23/2024 6:22 PM AIRCRAFT COMMUNICATOR) Pathologist [facility] hCG Serum Qualitative Negative Negative JARET 06/23/2024 6:49 PM AIRCRAFT COMMUNICATOR [facility] Comment:This test is for scr eening purposes. Results should be interpreted along with the clinical picture. Confirmation testing is available if warranted by ordering [id number], HCG Quantitative . Blood BLOOD SPECIMEN / Unknown Venipuncture / Unknown 06/23/2024 6:22 PM AIRCRAFT COMMUNICATOR 06/23/2024 6:38 PM AIRCRAFT COMMUNICATOR Dayna Crane MD LAB - BLOOD ORDERABLES Final Re sult Performing Organization Address [facility] de Phone Number [facility] [place] [facility] [address] [facility], [address] [id number] * (ABNORMAL) Comprehensive metabolic panel (06/23/2024 6:22 PM AIRCRAFT COMMUNICATOR) Pathologist [facility] Sodium 140 135 - 145 mmol/L 06/23/2024 7:13 PM AIRCRAFT COMMUNICATOR [facility] Potassium 4.3 3.4 - 5.3 mmol/L 06/23/2024 7:13 PM AIRCRAFT COMMUNICATOR [facility] Carbon Dioxide (CO2) 24 22 - 29 mmol/L 06/23/2024 7:13 PM AIRCRAFT COMMUNICATOR [facility] Anion Gap 7 7 - 15 mmol/L 06/23/2024 7:13 PM AIRCRAFT COMMUNICATOR [facility] Urea Nitrogen 6.8 6.0 - 20.0 mg/dL 06/23/2024 7:13 PM AIRCRAFT COMMUNICATOR [facility] Creatinine 0.61 0.51 - 0.95 mg/dL 06/23/2024 7:13 PM AIRCRAFT COMMUNICATOR [facility] GFR Estimate >90 >60 mL/min/1.7 3m2 06/23/2024 7:13 PM AIRCRAFT COMMUNICATOR [facility] Comment:eGFR calculated 2020 CKD-EPI equation. Calcium 8.8 8.8 - 10.4 mg/dL 06/23/2024 7:13 PM AIRCRAFT COMMUNICATOR [facility] Chloride 109(H) 98 - 107 mmol/L 06/23/2024 7:13 PM AIRCRAFT COMMUNICATOR [facility] Glucose 102(H) 70 - 99 mg/dL 06/23/2024 7:13 PM AIRCRAFT COMMUNICATOR [facility] Alkaline Phosphatase 125 40 - 150 U/L 06/23/2024 7:13 PM AIRCRAFT COMMUNICATOR [facility] AST 84(H) 0 - 45 U/L 06/23/2024 7:13 PM AIRCRAFT COMMUNICATOR [facility] ALT 69(H) 0 - 50 U/L 06/23/2024 7:13 PM AIRCRAFT COMMUNICATOR [facility] Protein Total 7.8 6.4 - 8.3 g/dL 06/23/2024 7:13 PM AIRCRAFT COMMUNICATOR [facility] Albumin 4.2 3.5 - 5.2 g/dL 06/23/2024 7:13 PM AIRCRAFT COMMUNICATOR [facility] Bilirubin Total 1.5(H) <=1.2 mg/dL 06/23/2024 7:13 PM AIRCRAFT COMMUNICATOR [facility] Blood BLOOD SPECIMEN / Unknown Venipuncture / Unknown 06/23/2024 6:22 PM AIRCRAFT COMMUNICATOR 06/23/2024 6:34 PM AIRCRAFT COMMUNICATOR us Dayna Crane MD LAB - BLOOD ORDERABLES Final Re sult [facility] [place] [facility] [address] [facility], [address] [phone] documented in this encounter Visit Diagnoses Diagnosis Sickle cell disease with crisis (H) Hb-SS disease with crisis documented in this encounter Administered Medications Inactive Administered Medications - up to 3 most recent administrations Medication Order MAR Action Action Date Dose Rate Site diphenhydrAMINE (BENADRYL) capsule 25 mg 25 mg, Oral, ONCE, On Wed06/23/24 at 1920, For 1 dose $Given 06/23/2024 7:43 PM AIRCRAFT COMMUNICATOR 25 mg heparin lock flush 100 unit/mL injection 100 Units 100 Units, Intravenous, ONCE, On Wed06/23/24 at 2100, For 1 dose $Given 06/23/2024 9:25 PM AIRCRAFT COMMUNICATOR 100 Units hydromorphone (DILAUDID) injection 2 mg 2 mg, Intravenous, EVERY 1 HOUR PRN, severe pain, Starting on Wed06/23/24 at 1806, X 3 max $Given 06/23/2024 8:46 PM AIRCRAFT COMMUNICATOR 2 mg $Given 06/23/2024 7:43 PM AIRCRAFT COMMUNICATOR 2 mg $Given 06/23/2024 6:28 PM AIRCRAFT COMMUNICATOR 2 mg sodium chloride 0.9% BOLUS 1,000 mL Intravenous, 1,000 mL, ONCE, at 1,000 mL/hr, Administer over 1 Hours, On Wed06/23/24 at 1810, For 1 dose $New Bag 06/23/2024 6:28 PM AIRCRAFT COMMUNICATOR 1,000 mLs 1000 mL/hr documented in this encounter Active and Recently Administered Medications Times are shown in AIRCRAFT COMMUNICATOR. Scheduled Medication Order 06/21/2024 06/22/2024 06/23/2024 diphenhydrAMINE [...] RN) documented in this encounter Care Teams Vice President Research Relationship Specialty Start Date End Date Veronica Joseph MD [address] [place] [address] PCP - General Family Medicine 06/18/24 Mor Ramsey Medical Student 04/03/24 Case Samuel MD [address] [place] [address] [address], [address] [place] [address] Assigned Pediatric Specialist Provider 05/18/24 Juhi Benson, SOFIA Specialty Pharmacy Intern Hematology & Oncology 05/29/24 documented as of this encounter
--- OUTSIDE RECORDS SUMMARY | 2024-06-24 20:55 | XMS_ITS | Encounter Summary ---
Author Organization [facility] Address [address] [place] [address]. [place] [address] Care Team Providers Care Head Of Digital Name Role Phone No Ref-Primary, Physician Primary Care Provider Mor Ramsey Unavailable Unavailable Case Samuel MD Unavailable [phone] Juhi Benson RN Unavailable Unavailable Encounter Details [...] on file Legal Sex Female 8:25 AM RADIOLOGY PRACTITIONER ASSISTANT Gender Identity Not on file Sexual Orientation Not on file documented as of this encounter Plan of Treatment Not on file documented as of this encounter Goals Goal Patient Goal Type Associated Problems Recent Progress Patient-Stated? Author Pain Management General On track( 025 12:40 PM RADIOLOGY PRACTITIONER ASSISTANT) Yes Juhi Benson RN Note: Goal [...] on filedocumented in this encounter Care Teams Head Of Digital Relationship Specialty Start Date End Date No Ref-Primary, Physician PCP - General 03/15/24 06/17/24 Mor Ramsey Medical Student 04/03/24 Case Samuel MD [address] [place] [address] 484, [address] [place] [address] Assigned Pediatric Specialist Provider 05/18/24 Juhi Benson RN Specialty Machine Puller And Laster Hematology & Oncology 05/29/24 documented as of this encounter
--- OUTSIDE RECORDS SUMMARY | 2024-06-24 20:55 | XMS_ITS | Encounter Summary ---
Author Organization [place] Address [address] [place] [address]. [place] [address] Care Team Providers Care Perioperative Tech Name Role Phone No Ref-Primary, Physician Primary Care Provider Mor Ramsey Unavailable Unavailable Case Samuel MD Unavailable [phone] Juhi Benson RN Unavailable Unavailable Encounter Details [...] on file Legal Sex Female 8:25 AM BOOKY Gender Identity Not on file Sexual Orientation Not on file documented as of this encounter Plan of Treatment Not on file documented as of this encounter Goals Goal Patient Goal Type Associated Problems Recent Progress Patient-Stated? Author Pain Management General On track( 025 12:40 PM BOOKY) Yes Juhi Benson RN Note: Goal Statement: [...] Out COVID-19 06/07/2024 06/07/2024 06/07/2024 12:50 PM BOOKY Rule Out COVID-19 06/07/2024 06/07/2024 06/07/2024 3:32 PM BOOKY documented as of this encounter Care Teams Perioperative Tech Relationship Specialty Start Date End Date No Ref-Primary, Physician PCP - General 03/15/24 06/17/24 Elvira Ramseyc Medical Student 04/03/24 Case Samuel MD [address] [place] [address] 484, [address] [place] [address] Assigned Pediatric Specialist Provider 05/18/24 Juhi Benson, RN Specialty Tube Worker Hematology & Oncology 05/29/24 documented as of this encounter
--- OUTSIDE RECORDS SUMMARY | 2024-06-24 20:55 | XMS_ITS | Encounter Summary ---
Author Organization [place] Address [address] [place] [address]. [place] [address] Care Team Providers Care Prescriptionist Name Role Phone No Ref-Primary, Physician Primary Care Provider Mor Ramsey Unavailable Unavailable Case Samuel MD Unavailable [phone] Juhi Benson RN Unavailable Unavailable Reason for Visit * Reason Comments Sickle Cell Pain Crisis Chest Pain Encounter Details Date Type Department Care Team (Late st Contact Info) Description 06/05/2024 11:41 AM FINISH GRINDER - 06/05/2024 3:28 PM [facility] Emergency Room [address] [place] [address] Stiven Madsen MD [address] [address] Star Gifford MD [address] [place], [place] [id number] Sickle cell pain crisis (H) Discharge Disposition: [...] on file Legal Sex Female 8:25 AM FINISH GRINDER Gender Identity Not on file Sexual Orientation Not on file documented as of this encounter Last Filed Vital Signs Vital Sign Reading Time Taken Comments Blood Pressure 114/67 06/05/2024 3:00 PM FINISH GRINDER Pulse 74 06/05/2024 3:00 PM FINISH GRINDER Temperature 36.8 C (98.3 F) 06/05/2024 11:37 AM FINISH GRINDER Respiratory Rate 18 06/05/2024 11:37 AM FINISH GRINDER Oxygen Saturation 99% 06/05/2024 3:00 PM FINISH GRINDER Inhaled Oxygen Concentration - - Weight 52.2 kg (115 lb) 06/05/2024 11:37 AM FINISH GRINDER Height 154.9 cm (5' 1) 06/05/2024 11:37 AM FINISH GRINDER Body Mass Index 21.73 06/05/2024 11:37 AM FINISH GRINDER documented in this encounter Discharge Instructions * Discharge Instructions* Stiven Madsen MD - 06/05/2024 12:59 PM FINISH GRINDER You were seen in the emergency department for a pain crisis. You were given medications and IV fluids. Please continue to follow-up with your established hat band attacher after this ED visit. SH GRINDER documented in this encounter Medications at Time [...] you involve another provider (travel service consultant, , pharmacy, etc.)?: No Discharge. No recommendations on prescription strength medication(s). See documentation for any additional details. 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 Recently moved to [place] from [place], [place]. She is 1 of 9 [...] Connections: Socially Integrated (03/28/2024) Received from [facility] Social Connections Do you often [...] abnormality. Rate: 88 BPM Rhythm: Sinus rhythm Gulf Breeze: 81 NC Interval: 148 ms QRS Interval: 82 ms [...] my direction. Stiven Madsen M.D. Emergency Medicine [facility] EMERGENCY ROOM [address] [facility] [id number] Dept: [phone] Stiven Madsen MD 06/05/24 1433 Stiven Madsen MD 06/05/24 1938 SH GRINDER SH GRINDER * Jose Ramon Sims, SOFIA - 06/05/2024 [...] WDL WDL Cognitive/Neuro/Behavioral WDL Cognitive/Neuro/Behavioral WDL WDL SH GRINDER documented in this encounter Plan of Treatment Not on file documented as of this encounter Goals Goal Patient Goal Type Associated Problems Recent Progress Patient-Stated? Author Pain Management General On track( 025 12:40 PM FINISH GRINDER) Yes Juhi Benson, RN Note: Goal Statement: [...] MUSE JEREMIAS HORVATH,WWRocio STAT 06/05/2024 11:40 AM FINISH GRINDER documented in this encounter Results * ECG 12-LEAD WITH MUSE (LHE) (06/05/2024 11:40 AM FINISH GRINDER) Systolic Blood Pressure mmHg RADIOLOGY RESULTS Diastolic Blood Pressure mmHg RADIOLOGY RESULTS Ventricular Rate 88 BPM RAD IOLOGY RESULTS Atrial Rate 88 BPM RADIOLOG Y RESULTS NC Interval 148 ms RADIOLOG Y RESULTS QRS Duration 82 ms RADIOLO GY RESULTS QT 388 ms RADIOLOGY RESULTS QTc 469 ms RADIOLOGY RESULTS P Gulf [place]reeze 43 degrees RADIOLOGY RESULTS R AXIS 81 degrees RADIOLOGY RESULTS T [place]reeze 57 degrees RADIOLOGY RESULTS Interpretation ECG Sinus rhythm Nonspecific T wave abnormality Prolonged QT Abnormal ECG When compared with ECG of 03-Jun-2024 15:24, No significant change was found Confirmed by SEE ED PROVIDER NOTE FOR, ECG INTERPRETATION (4000), associate editor Ariadna Shabazz ([id number]) on 06/05/2024 12:02:47 PM RADIOLOGY RESULTS 06/05/2024 11:4 0 AM FINISH GRINDER 06/05/2024 12:02 PM FINISH GRINDER us Stiven Madsen MD ECG ORDERABLES Edited [...] For 1 dose $Given 06/05/2024 12:40 PM FINISH GRINDER 25 mg heparin lock flush 10 unit/mL [...] for each lumen $Given 06/05/2024 3:20 PM FINISH GRINDER 5 mLs HYDROmorphone (DILAUDID) injection 2 mg 2 mg, Intravenous, EVERY 1 HOUR PRN, moderate pain, severe pain, Starting on Wed06/05/24 at 1153 $Given 06/05/2024 2:56 PM FINISH GRINDER 2 mg $Given 06/05/2024 1:54 PM FINISH GRINDER 2 mg $Given 06/05/2024 12:40 PM FINISH GRINDER 2 mg lactated ringers infusion at 500 mL/hr, Intravenous, CONTINUOUS, Starting on Wed06/05/24 at 1200, Until Wed06/05/24 at 1359 $New Bag 06/05/2024 12:39 PM FINISH GRINDER 500 mL/hr ondansetron (ZOFRAN) injection 8 mg 8 mg, Intravenous, ONCE, Administer over 2-5 Minutes, On Wed06/05/24 at 1200, For 1 dose $Given 06/05/2024 12:39 PM FINISH GRINDER 8 mg documented in this encounter Active and Recently Administered Medications Times are shown in FINISH GRINDER. Scheduled Medication Order 06/03/2024 06/04/2024 06/05/2024 ondansetron [...] 1 dose 1240 ($Given - Provi nas: hSane Santos RN) heparin lock flush 10 unit/mL [...] RN) documented in this encounter Care Teams Prescriptionist Relationship Specialty Start Date End Date No Ref-Primary, Physician PCP - General 03/15/24 06/17/24 Mor Ramsey Medical Student 04/03/24 Case [place] MD [address] [place] [address] 484, [address] [place] [address] Assigned Pediatric Specialist Provider 05/18/24 Juhi Benson, SOFIA Specialty Loom Changer Hematology & Oncology 05/29/24 documented as of this encounter
--- OUTSIDE RECORDS SUMMARY | 2024-06-24 20:55 | XMS_ITS | Encounter Summary ---
Author Organization [place] Address [address] [place] [address]. [place] [address] Care Team Providers Care Leaf Coverer Name Role Phone Roxy Mor Unavailable Unavailable Case [place] MD Unavailable [phone] Juhi Benson RN Unavailable Unavailable Veronica Joseph MD Primary Care Provider [phone] Encounter Details Date Type Department Care Team [...] an overnight group home, or couch-surfing.) Yes 06/20/2024 Are you worried [...] file Legal Sex Female 8:25 AM FIELD TRAINER Gender Identity Not on file Sexual Orientation Not on file documented as of this encounter Plan of Treatment Not on file documented as of this encounter Goals Goal Patient Goal Type Associated Problems Recent Progress Patient-Stated? Author Pain Management General On track( 025 12:40 PM FIELD TRAINER) Yes Juhi Benson RN Note: Goal Statement: [...] on filedocumented in this encounter Care Teams Leaf Coverer Relationship Specialty Start Date End Date Veronica Joseph MD [address] [place] [address] PCP - General Family Medicine 06/18/24 Mor Ramsey Medical Student 04/03/24 Case [place] MD [address] [place] [address] 484, [address] [place] [address] Assigned Pediatric Specialist Provider 05/18/24 Juhi Benson, RN Specialty Qa Engineer Hematology & Oncology 05/29/24 documented as of this encounter
--- OUTSIDE RECORDS SUMMARY | 2024-06-24 20:55 | XMS_ITS | Encounter Summary ---
Author Organization [place] Address [address] [place] [address] Care Team Providers Care Retail Grocer Name Role Phone No Ref-Primary, Physician Primary Care Provider Mor Ramsey Unavailable Unavailable Case [place] MD Unavailable [phone] Juhi Benson RN Unavailable Unavailable Reason for Visit * Reason Comments Sickle Cell Pain Crisis Encounter Details Date Type Department Care Team (Late st Contact Info) Description 06/06/2024 9:41 AM ELECTROSTATIC POWDER COATING TECHNICIAN - 06/06/2024 1:29 PM [facility] Emergency [facility] Emergency Room [facility] [place] [address] Marilia Summers MD [address] [place] [id number] Sickle cell pain crisis (H) Discharge Disposition: [...] on file Legal Sex Female 8:25 AM ELECTROSTATIC POWDER COATING TECHNICIAN Gender Identity Not on file Sexual Orientation Not on file documented as of this encounter Last Filed Vital Signs Vital Sign Reading Time Taken Comments Blood Pressure 122/82 06/06/2024 1:00 PM ELECTROSTATIC POWDER COATING TECHNICIAN Pulse 77 06/06/2024 1:00 PM ELECTROSTATIC POWDER COATING TECHNICIAN Temperature 36.9 C (98.5 F) 06/06/2024 9:33 AM ELECTROSTATIC POWDER COATING TECHNICIAN Respiratory Rate 17 06/06/2024 9:33 AM ELECTROSTATIC POWDER COATING TECHNICIAN Oxygen Saturation 98% 06/06/2024 1:00 PM ELECTROSTATIC POWDER COATING TECHNICIAN Inhaled Oxygen Concentration - - Weight 52.2 kg (115 lb) 06/06/2024 9:33 AM ELECTROSTATIC POWDER COATING TECHNICIAN Height 154.9 cm (5' 1) 06/06/2024 9:33 AM ELECTROSTATIC POWDER COATING TECHNICIAN Body Mass Index 21.73 06/06/2024 9:33 AM ELECTROSTATIC POWDER COATING TECHNICIAN documented in this encounter Discharge Instructions * Discharge Instructions* Marilia Summers MD - 06/06/2024 12:48 PM ELECTROSTATIC POWDER COATING TECHNICIAN With the amount of hydromorphone that you [...] work on your care plan with your newspaper stuffer to see if they would be agreeable to getting you an appointment with pain clinic even while you are waiting to start the plasmapheresis to work a bit more on a home pain regimen for you. Continue to follow your care plan discussed with your newspaper stuffer to treat your sickle cell pain crisis. Your next dose of dilaudid should not be before 2:30 pm. TROSTATIC POWDER COATING TECHNICIAN TROSTATIC POWDER COATING TECHNICIAN * Attachments The following attachments cannot be sent through Care Everywhere. * Naloxone Nasal Soper (NALOXONE SPRAY - NASAL) (Jordanian) * Drug Overdose: Opioid (Jordanian) documented in this encounter Medications at Time [...] 05/01/2024 naloxone (NARCAN) 4 MG/0.1ML nasal spray Soper 1 spray (4 mg) into one nostril [...] WDL WDL Cognitive/Neuro/Behavioral WDL Cognitive/Neuro/Behavioral WDL WDL TROSTATIC POWDER COATING TECHNICIAN * Marilia Summers MD - 06/06/2024 9:34 [...] no indication for repeat blood work t rte and or repeat imaging. She does struggle with chest pain as part of her sickle crisis. Care plan is reviewed. She is planning to start plasmapheresis but would like to discuss getting her seen by pain clinic so that they can start some longer acting pain management for her at home. Sending outthis request to our physician who is working with her newspaper stuffer for the care plan. Per the patient [...] plans and they will talk with her newspaper stuffer about the request for the patient to [...] do now have a major issue. Our accredited legal secretary Hattie and our security solutions architect Augusto just saw the patient to get into the form setter/driver seat and drive away after being told specifically that she cannot drive and that she had told us that her significant other was driving in to pick herup. 1328 Our security did have her on video (as blast furnace checker concerned she did not get into a [...] Prescriptions NALOXONE (NARCAN) 4 MG/0.1ML NASAL SPRAY Soper 1 spray (4 mg) into one nostril [...] has been evaluated multiple times since in [place] and although she has a remote history [...] than previous suspect she was slightly dehydrated. [facility] Documentation Medical Decision Making Obtained supplemental [...] with other provider:Did you involve another provider (hr consultant, , pharmacy, etc.)?: No Discharge.continue current meds The creation of this record is based on the scribe???s observations of the work being performed by Alex Ashby and the provider???s statements to them. This document has been checked and approved byMD Marilia Martinez MD Emergency Medicine [facility] EMERGENCY ROOM Marilia Summers MD 06/06/24 1254 Marilia Summers MD 06/06/24 1257 Marilia Summers MD 06/06/24 1330 TROSTATIC POWDER COATING TECHNICIAN TROSTATIC POWDER COATING TECHNICIAN TROSTATIC POWDER COATING TECHNICIAN documented in this encounter Plan of Treatment Not on file documented as of this encounter Goals Goal Patient Goal Type Associated Problems Recent Progress Patient-Stated? Author Pain Management General On track( 025 12:40 PM ELECTROSTATIC POWDER COATING TECHNICIAN) Yes Juhi Benson, SOFIA Note: Goal [...] For 1 dose $Given 06/06/2024 10:22 AM ELECTROSTATIC POWDER COATING TECHNICIAN 50 mg heparin lock flush 10 [...] each port lumen $Given 06/06/2024 1:13 PM ELECTROSTATIC POWDER COATING TECHNICIAN 5 mLs HYDROmorphone (DILAUDID) injection 2 mg 2 mg, Intravenous, EVERY 1 HOUR PRN, moderate pain, Starting on Wed06/06/24 at 0958, For 2 doses $Given 06/06/2024 11:31 AM ELECTROSTATIC POWDER COATING TECHNICIAN 2 mg $Given 06/06/2024 10:22 AM ELECTROSTATIC POWDER COATING TECHNICIAN 1 mg HYDROmorphone (DILAUDID) injection 2 mg 2 mg, Intravenous, ONCE, On Wed06/06/24 at 1300, For 1 dose $Given 06/06/2024 12:57 PM ELECTROSTATIC POWDER COATING TECHNICIAN 2 mg lactated ringers BOLUS 1,000 mL Intravenous, 1,000 mL, ONCE, On Wed06/06/24 at 1000, For 1 dose $New Bag 06/06/2024 10:12 AM ELECTROSTATIC POWDER COATING TECHNICIAN 1,000 mLs sodium chloride (PF) 0.9% PF [...] Recently Administered Medications Times are shown in ELECTROSTATIC POWDER COATING TECHNICIAN. Scheduled Medication Order 06/04/2024 06/05/2024 06/06/2024 heparin [...] documented in this encounter Care Teams Retail Grocer Relationship Specialty Start Date End Date No Ref-Primary, Physician PCP - General 03/15/24 06/17/24 Mor Ramsey Medical Student 04/03/24 Case [place] MD [address] [place] [address] 484, [address] [place] [address] Assigned Pediatric Specialist Provider 05/18/24 Marcelino, Juhi, RN Specialty Family Service Assistant Hematology & Oncology 05/29/24 documented as of this encounter
--- OUTSIDE RECORDS SUMMARY | 2024-06-24 20:55 | XMS_ITS | Encounter Summary ---
Author Organization [place] Address [address] [place] [address]. [place] [address] Care Team Providers Care Media Librarian Name Role Phone No Ref-Primary, Physician Primary Care Provider Mor Ramsey Unavailable Unavailable Case Samuel MD Unavailable [phone] Juhi Benson RN Unavailable Unavailable Encounter Details [...] on file Legal Sex Female 8:25 AM HERD TESTER Gender Identity Not on file Sexual Orientation Not on file documented as of this encounter Plan of Treatment Not on file documented as of this encounter Goals Goal Patient Goal Type Associated Problems Recent Progress Patient-Stated? Author Pain Management General On track( 025 12:40 PM HERD TESTER) Yes Juhi Benson RN Note: Goal Statement: [...] on filedocumented in this encounter Care Teams Media Librarian Relationship Specialty Start Date End Date No Ref-Primary, Physician PCP - General 03/15/24 06/17/24 Mor Ramsey Medical Student 04/03/24 Case [place] MD [address] [place] [address] 484, [address] [place] [address] Assigned Pediatric Specialist Provider 05/18/24 Juhi Benson RN Specialty Strategic Planning Analyst Hematology & Oncology 05/29/24 documented as of this encounter
--- OUTSIDE RECORDS SUMMARY | 2024-06-24 20:55 | XMS_ITS | Encounter Summary ---
Author Organization [place] Address [address] [place] [address]. [place] [address] Care Team Providers Care Preparation Department Supervisor Name Role Phone No Ref-Primary, Physician Primary Care Provider Mor Ramsey Unavailable Unavailable Case [place] MD Unavailable [phone] Juhi Benson RN Unavailable Unavailable Reason for Visit * Reason Comments Infusion * Auth/Cert Specialty Diagnoses / Procedures Referred By Shahid t Referred To Contact EMERGENCY MEDICINE Diagnoses Acute chest pain Sickle cell pain crisis (H) [facility] Emergency Department [address] [place] [address] Phone: tel: Referral ID Status Reason Start Date Expiration Date Visits Re quested Visits Authorized [id number] 1 1 Encounter Details Date Type Department Care Team ([facility] st Contact Info) Description 06/09/2024 11:30 AM CORK SLABS SAWYER Infusion Therapy Visit [facility] [address] [place] [address] Case [place] MD [address] [facility] [address], [address] [place] [address] Sickle cell pain crisis (H) [...] on file Legal Sex Female 8:25 AM CORK SLABS SAWYER Gender Identity Not on file Sexual Orientation Not on file documented as of this encounter Last Filed Vital Signs Vital Sign Reading Time Taken Comments Blood Pressure 123/75 06/09/2024 11:45 AM CORK SLABS SAWYER Pulse 87 06/09/2024 11:45 AM CORK SLABS SAWYER Temperature 37 C (98.6 F) 06/09/2024 11:45 AM CORK SLABS SAWYER Respiratory Rate 16 06/09/2024 11:45 AM CORK SLABS SAWYER Oxygen Saturation 100% 06/09/2024 11:45 AM CORK SLABS SAWYER Inhaled Oxygen Concentration - - Weight - - Height - - Body Mass Index - - documented in this encounter Progress Notes * Lynne Camacho, RN - 06/09/2024 11:30 AM CST Infusion Nursing Note: Gianna Hernández presents today for IV fluids + Dilaudid. Patient seen by provider today: No Knit Goods Washer present during visit today: Not Applicable. Note: Rating pain at an 8 out of 10 upon arrival. Has a locomotive driver. Intravenous Access: Implanted Port. Treatment Conditions: [...] all questions answered. AVS to patient via [facility]. Patient will return 06/13 for next appointment. Patient discharged in stable condition accompanied by: self and boyfriend. Departure Mode: Ambulatory. Lynne Camacho RN SLABS SAWYER documented in this encounter Plan of Treatment Not on file documented as of this encounter Goals Goal Patient Goal Type Associated Problems Recent Progress Patient-Stated? Author Pain Management General On track( 025 12:40 PM CORK SLABS SAWYER) Yes Juhi Benson, RN Note: Goal Statement: [...] pain crisis (H) $Given 06/09/2024 2:03 PM CORK SLABS SAWYER 5 mLs hydromorphone (DILAUDID) injection 2 mg 2 mg, Intravenous, EVERY 1 HOUR PRN, severe pain, moderate pain, Starting on Wed06/09/24 at 1111, For 3 dosesIndications:Sickle cell pain crisis (H) $Given 06/09/2024 1:58 PM CORK SLABS SAWYER 2 mg $Given 06/09/2024 12:52 PM CORK SLABS SAWYER 2 mg $Given 06/09/2024 11:53 AM CORK SLABS SAWYER 2 mg lactated ringers BOLUS 1,000 mL Intravenous, 1,000 mL, ONCE, at 500 mL/hr, Administer over 2 Hours, On Wed06/09/24 at 1115, For 1 doseIndications:Sickle cell pain crisis (H) $New Bag 06/09/2024 11:45 AM CORK SLABS SAWYER 1,000 mLs 500 mL/hr sodium chloride (PF) [...] pain crisis (H) $Given 06/09/2024 11:45 AM CORK SLABS SAWYER 20 mLs documented in this encounter Care Teams Preparation Department Supervisor Relationship Specialty Start Date End Date No Ref-Primary, Physician PCP - General 03/15/24 06/17/24 Mor Ramsey Medical Student 04/03/24 Case [place] MD [address] [place] [address] 484, [address] [place] [address] Assigned Pediatric Specialist Provider 05/18/24 Juhi Benson, RN Specialty Rate Analyst Hematology & Oncology 05/29/24 documented as of this encounter
--- OUTSIDE RECORDS SUMMARY | 2024-06-24 20:55 | XMS_ITS | Encounter Summary ---
Author Organization [place] Address [address] [place] [id number] Care Team Providers Care Hand Molder And Caster Name Role Phone No Ref-Primary, Physician Primary Care Provider Mor Ramsey Unavailable Unavailable Case Samuel MD Unavailable [phone] Juhi Benson RN Unavailable Unavailable Reason for Visit * Reason Comments Sickle Cell Pain Crisis Encounter Details Date Type Department Care Team (Late st Contact Info) Description 06/11/2024 9:02 PM BAND CUTTER - 06/12/2024 1:57 AM [facility] Emergency [facility] Emergency Room [address] [place] [address] Iliana Weber MD [facility] [address] [place] [address] Sickle cell pain crisis (H) Discharge Disposition: [...] on file Legal Sex Female 8:25 AM BAND CUTTER Gender Identity Not on file Sexual Orientation Not on file documented as of this encounter Last Filed Vital Signs Vital Sign Reading Time Taken Comments Blood Pressure 118/75 06/12/2024 12:45 AM BAND CUTTER Pulse 91 06/12/2024 12:45 AM BAND CUTTER Temperature 36.5 C (97.7 F) 06/11/2024 8:58 PM BAND CUTTER Respiratory Rate 19 06/12/2024 12:45 AM BAND CUTTER Oxygen Saturation 95% 06/12/2024 12:45 AM BAND CUTTER Inhaled Oxygen Concentration - - Weight 52.2 kg (115 lb) 06/11/2024 8:58 PM BAND CUTTER Height 154.9 cm (5' 1) 06/11/2024 8:58 PM BAND CUTTER Body Mass Index 21.73 06/11/2024 8:58 PM BAND CUTTER documented in this encounter Discharge Instructions * Attachments The following attachments cannot be sent through Care Everywhere. * Sickle Cell Crisis ([place]) documented in this encounter Medications at Time [...] 05/01/2024 naloxone (NARCAN) 4 MG/0.1ML nasal spray [place] 1 spray (4 mg) into one nostril [...] CST Gave handoff report to Niki BLACK CUTTER * Shane Santos RN - 06/11/2024 10:00 PM CST Pt drove here as seen on security footage. Notified Dr Weber, and ok to proceed with treatment plan as ordered. Pt was advised to arrange a ride home. CUTTER * Iliana Weber MD - 06/11/2024 9:08 PM CST EMERGENCY DEPARTMENT ENCOUNTER NAME: Gianna Hernández AGE: [age] year old female DATE OF : 1995 EVALUATION DATE & TIME: 06/11/2024 9:02 PM PCP: No Ref-Primary, Physician ED PROVIDER: Iliana Webre M.D. Chief Complaint Patient presents with Sickle Cell Pain Crisis FINAL IMPRESSION: 1. Sickle cell pain crisis (H) MEDICAL DECISION MAKING: Pertinent Labs & Imaging studies reviewed. (See chart for details) Afebrile. Vital signs here with tachycardia, otherwise unremarkable. Patient is coming in for evaluation of pain related to sickle cell. Patient with multiple visits, does get infusion therapies frequently. Last seen at [facility] 06/11/2024 early this morning about midnight. [...] other provider:Did you involve another provider (senior sustainability consultant, MH, pharmacy, etc.)?: No Discharge. 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 Recently moved to [place] from [place], [place]. She is 1 of 9 [...] Social Connections: Socially Integrated (03/28/2024) Received from [facility] Social Connections Do you often feel [...] dry. Normal skin color. Neuro: Speech clear. blending tank tender grossly intact. Moves all extremities appropriately. Strength [...] Given normal axis. QTcis 453, QRS 78, [place] 158. As compared to previous EKG from June 05, 2024 T wave slightly flattened in 3 and aVF but otherwise no significant change. I have independently reviewed and interpreted the EKG(s) documented above. Iliana Weber M.D. Emergency Medicine [facility] EMERGENCY ROOM [address] [facility] [id number] Dept: [phone] Iliana Weber MD 06/12/24 0149 CUTTER * Jennifer Muse RN - 06/11/2024 8:56 [...] WDL WDL Cognitive/Neuro/Behavioral WDL Cognitive/Neuro/Behavioral WDL WDL CUTTER documented in this encounter Plan of Treatment Not on file documented as of this encounter Goals Goal Patient Goal Type Associated Problems Recent Progress Patient-Stated? Author Pain Management General On track( 025 12:40 PM BAND CUTTER) Yes Juhi Benson, RN Note: Goal Statement: [...] WITH MUSE SJN,SJO,[facility]WH STAT 06/11/2024 9:04 PM BAND CUTTER documented in this encounter Results * ECG 12-LEAD WITH MUSE (LHE) (06/11/2024 9:04 PM BAND CUTTER) Systolic Blood Pressure mmHg RADIOLOGY RESULTS Diastolic Blood Pressure mmHg RADIOLOGY RESULTS Ventricular Rate 102 BPM RAD IOLOGY RESULTS Atrial Rate 102 BPM RADIOLOG Y RESULTS [place] Interval 158 ms RADIOLOG Y RESULTS QRS Duration 78 ms RADIOLO GY RESULTS QT 348 ms RADIOLOGY RESULTS QTc 453 ms RADIOLOGY RESULTS P [place] 39 degrees RADIOLOGY RESULTS R AXIS 66 degrees RADIOLOGY RESULTS T [place] 33 degrees RADIOLOGY RESULTS Interpretation ECG Sinus tachycardia Nonspecific T wave abnormality Abnormal ECG When compared with ECG of 05-Jun-2024 11:40, No significant change was found Confirmed by SEE ED PROVIDER NOTE FOR, ECG INTERPRETATION (4000), brands editor SELMA GARRISON ([id number]) on 06/11/2024 9:05:27 PM RADIOLOGY RESULTS 06/11/2024 9:04 PM BAND CUTTER 06/11/2024 9:05 PM BAND CUTTER us Deshawn Arredondo MD ECG ORDERABLES Edited [...] For 1 dose $Given 06/12/2024 1:32 AM BAND CUTTER 25 mg heparin lock flush 100 unit/mL [...] each port lumen $Given 06/12/2024 1:47 AM BAND CUTTER 5 mLs HYDROmorphone (DILAUDID) injection 2 mg 2 mg, Intravenous, EVERY 1 HOUR PRN, moderate pain, Starting on Wed06/11/24 at 2103, For 3 doses $Given 06/12/2024 12:23 AM BAND CUTTER 2 mg $Given 06/11/2024 11:16 PM BAND CUTTER 2 mg $Given 06/11/2024 10:09 PM BAND CUTTER 2 mg lactated ringers BOLUS 1,000 mL Intravenous, 1,000 mL, ONCE, at 500 mL/hr, Administer over 2 Hours, On 06/11/24 at 2130, For 1 dose $New Bag 06/11/2024 10:03 PM BAND CUTTER 1,000 mLs 500 mL/hr ondansetron (ZOFRAN) injection 8 mg 8 mg, Intravenous, ONCE, Administer over 2-5 Minutes, On 06/11/24 at 2130, For 1 dose $Given 06/11/2024 10:08 PM BAND CUTTER 8 mg sodium chloride (PF) 0.9% PF [...] Recently Administered Medications Times are shown in BAND CUTTER. Scheduled Medication Order 06/10/2024 06/11/2024 06/12/2024 diphenhydrAMINE [...] draw. documented in this encounter Care Teams Hand Molder And Caster Relationship Specialty Start Date End Date No Ref-Primary, Physician PCP - General 03/15/24 06/17/24 Mor Ramsey Medical Student 04/03/24 Case Samuel MD [address] [place] [address], [address] [place] [address] Assigned Pediatric Specialist Provider 05/18/24 Juhi Benson, RN Specialty Test Rack Operator Hematology & Oncology 05/29/24 documented as of this encounter
--- OUTSIDE RECORDS SUMMARY | 2024-06-24 20:55 | XMS_ITS | Encounter Summary ---
Author Organization [place] Address [address] [place] [address]. [place] [address] Care Team Providers Care Rigger Apprentice Name Role Phone No Ref-Primary, Physician Primary Care Provider Mor Ramsey Unavailable Unavailable Case Samuel MD Unavailable [phone] Juhi Benson RN Unavailable Unavailable Encounter Details [...] on file Legal Sex Female 8:25 AM DATA QUALITY CONSULTANT Gender Identity Not on file Sexual Orientation Not on file documented as of this encounter Plan of Treatment Not on file documented as of this encounter Goals Goal Patient Goal Type Associated Problems Recent Progress Patient-Stated? Author Pain Management General On track( 025 12:40 PM DATA QUALITY CONSULTANT) Yes Juhi Benson RN Note: Goal [...] on filedocumented in this encounter Care Teams Rigger Apprentice Relationship Specialty Start Date End Date No Ref-Primary, Physician PCP - General 03/15/24 06/17/24 Mor Ramsey Medical Student 04/03/24 Case Samuel MD [address] [place] [address], [address] [place] [address] Assigned Pediatric Specialist Provider 05/18/24 Juhi Benson RN Specialty Sandwich Maker Hematology & Oncology 05/29/24 documented as of this encounter
--- OUTSIDE RECORDS SUMMARY | 2024-06-24 20:56 | XMS_ITS | Encounter Summary ---
Author Organization [facility] Address [address] [place] [address]. [place] [address] Care Team Providers Care Correctional Corporal Name Role Phone No Ref-Primary, Physician Primary Care Provider Mor Ramsey Unavailable Unavailable Case Samuel MD Unavailable [phone] Juhi Benson RN Unavailable Unavailable Veronica Joseph MD Primary Care Provider [phone] Reason for Visit * Reason Comments Shortness of Breath Chest Pain Fever * Auth/Cert Specialty Diagnoses / Procedures Referred By Contac t Referred To Contact EMERGENCY MEDICINE Diagnoses Sickle cell pain crisis (H) [facility] Emergency Department [address] [place] [address] Phone: tel: Referral ID Status Reason Start Date Expiration Date Visits Re quested Visits Authorized [id number] 1 1 Encounter Details Date Type Department Care Team (Late st Contact Info) Description 06/16/2024 4:46 PM SAP BPC DEVELOPER - 06/20/2024 11:00 AM SAP BPC DEVELOPER Hospital Encounter [facility] 7C Med Surg [address] [place] [phone] Abimael Schofield MD [address] [place] [address] [id number] Esdras Markham MD [address] [place] [address] German Hall MD [address] [place] [address] [address] [place] [address] Sickle cell pain crisis (H) [...] in an overnight jail, or couch-surfing.) Yes 06/20/2024 Are you worried [...] file Legal Sex Female 8:25 AM SAP BPC DEVELOPER Gender Identity Not on file Sexual Orientation Not on file documented as of this encounter Last Filed Vital Signs Vital Sign Reading Time Taken Comments Blood Pressure 106/62 06/20/2024 6:00 AM SAP BPC DEVELOPER Pulse 78 06/19/2024 2:25 PM SAP BPC DEVELOPER Temperature 36.7 C (98 F) 06/20/2024 6:00 AM SAP BPC DEVELOPER Respiratory Rate 18 06/20/2024 6:00 AM SAP BPC DEVELOPER Oxygen Saturation 99% 06/20/2024 6:00 AM SAP BPC DEVELOPER Inhaled Oxygen Concentration - - Weight - - Height - - Body Mass Index - - documented in this encounter Discharge Summaries * Rl Elias MD - 06/20/2024 8:39 AM CST [facility] Discharge Summary - Medicine & Pediatrics [...] her pain can be managed with her TOUR GUIDE dilaudid 4mg q6h PRN. Hematology team is aware of discharge today and will arrange follow up. - continue TOUR GUIDE dilaudid 4 mg Q6H PRN & further supportive cares as needed - follow up with Hematology as scheduled by their team - Continue TOUR GUIDE hydroxyurea 1000mg BID - Continue TOUR GUIDE folic acid 1mg daily - Continue topical diclofenac, lidocaine, icy hot PRN #ANGIE, resolved Likely prerenal with decreased PO intake. Cr 0.92 on admission, baseline ~0.61- 0.7. Improved with maintenance fluids. Encouraged adequate water intake at home. #Insomnia - melatonin 3 mg PRN #Anxiety - Continue TOUR GUIDE fluoxetine Consultations This Hospital Stay HEMATOLOGY ADULT IP CONSULT CARE MANAGEMENT / SOCIAL WORK IP CONSULT Code Status Full Code Nivia Carvajal, MS3 Ricardo 1 Hospitalist Service [facility] 7C MED SURG [address] [facility] [id number] Physical Exam Vital Signs: Temp: 98 ??F [...] upon discharge: activity as tolerated Follow Up ([facility]) Follow up with primary care provider, Veronica Joseph, within 7 days for hospital follow- up. Thefollowing labs/tests are recommended: CBC. Appointments on [place] and/or [facility] (with [facility] or [facility] provider or service). Call [phone] if you haven't heard regarding these appointments [...] inadequate. naloxone (NARCAN) 4 MG/0.1ML nasal spray Kegley 1 spray (4 mg) into one nostril [...] Aydee Coughlin MD at 06/20/2024 11:52 AM SAP BPC DEVELOPER BPC DEVELOPER BPC DEVELOPER Associated attestation - Aydee Coughlin MD - 06/20/2024 11:52 AM SAP BPC DEVELOPER Physician Attestation I saw and evaluated this [...] 05/01/2024 naloxone (NARCAN) 4 MG/0.1ML nasal spray Kegley 1 spray (4 mg) into one nostril [...] stated on the papers. Home supply :N/A. BPC DEVELOPER * Araceli Ramires MD - 06/20/2024 8:42 [...] Overall, I spent 35 minutes today (DOS) [id number] and/or coordinating care as documented above and specifically listed as below: --Reviewing documentation related to patient's history and this current admission available in [employer] --Review and clinical interpretation of pertinent laboratory test results from this admission --Discussion with the patient --Discussion with patient's primary team --Documentation in the electronic health record BPC DEVELOPER * Linda Lomax MD - 06/19/2024 7:43 [...] Service (when I saw the patient): 06/19/24 [facility] Progress Note - Medicine Service, MAROON [...] senna PRN for supportive measures - Continue TOUR GUIDE hydroxyurea 1000mg BID - Continue TOUR GUIDE folic acid 1mg daily - Monitoring CBC [...] melatonin 3 mg PRN #Anxiety - Continue TOUR GUIDE fluoxetine - Benadryl PRN per Pain Plan [...] Nivia Carvajal, MS3 Medical Student Medicine Service, [address] Securely message with [employer] info) Text page via [facility] Paging/Directory See signed in provider for [...] previous visit (from the past 24 hours). BPC DEVELOPER * Tejal Curry RN - 06/18/2024 6:54 PM CST Shift: [id number] VS: Temp: 98.3 ??F (36.8 ??C) Temp [...] light appropriately Plan: Continue POC; manage pain BPC DEVELOPER * Linda Lomax MD - 06/18/2024 10:18 AM CST [facility] Progress Note - Medicine Service, MAROON [...] benadryl, senna PRN for supportive measures -Continue TOUR GUIDE hydroxyurea 1000mg BID -Continue TOUR GUIDE folic acid 1mg daily - monitoring CBC w/diff, LDH, reticulocyte count, and LDH daily - type & screened, consented - continue topical diclofenac, lidocaine, icy hot PRN - blood cultures, urine culture >> NGTD #ANGIE, resolved Likely prerenal with decreased PO intake. - mIVF with LR - CMP in AM #Insomnia - Continue TOUR GUIDE fluoxetine - melatonin 3 mg PRN Diet: [...] Hall . Linda Lomax MD Medicine Service, [facility] TEAM [address] [place] [address] Securely message with [employer] (more info) Text page via [facility] Paging/Directory See signed in provider for [...] German Hall MD at 06/18/2024 3:16 PM SAP BPC DEVELOPER BPC DEVELOPER BPC DEVELOPER Associated attestation - German Hall MD - 06/18/2024 3:16 PM SAP BPC DEVELOPER Attestation: This patient has been seen and [...] Overall, I spent 35 minutes today (DOS) [id number] and/or coordinating care as documented above and specifically listed as below: --Reviewing documentation related to patient's history and this current admission available in [employer] --Review and clinical interpretation of pertinent laboratory test results from this admission --Discussion with the patient --Discussion with patient's primary team --Documentation in the electronic health record BPC DEVELOPER * Rl Elias MD - 06/17/2024 11:31 AM CST [facility] Progress Note - [facility] Date of Admission: 06/16/2024 [...] benadryl, senna PRN for supportive measures -Continue TOUR GUIDE hydroxyurea 1000mg BID -Continue TOUR GUIDE folic acid 1mg daily - monitoring CBC w/diff, LDH, reticulocyte count, and LDH daily - type & screened, consented - continue topical diclofenac, lidocaine, icy hot PRN - blood cultures, urine culture to evaluate any further source of infection #ANGIE Likely prerenal with decreased PO intake. - mIVF with LR - CMP in AM #Insomnia - Continue TOUR GUIDE fluoxetine - melatonin 3 mg PRN Diet: [...] Hall . RL ELIAS MD Medicine Service, [address] Securely message with [employer] ([employer] info) Text page via [facility] Paging/Directory See signed in provider for [...] Narrative EXAM: XR CHEST 2 VIEWS LOCATION: [facility] DATE: 06/16/2024 INDICATION: chest pain COMPARISON: 06/12/2024 Impression IMPRESSION: Left chest port catheter in stable position. Stable position of right central venous catheter. No airspace opacity, pleural effusion or pneumothorax. Cosigned by German Hall MD at 06/18/2024 3:07 PM SAP BPC DEVELOPER BPC DEVELOPER BPC DEVELOPER BPC DEVELOPER Associated attestation - German Hall MD - 06/18/2024 3:07 PM SAP BPC DEVELOPER Attestation: This patient has been seen and evaluated by me, German Hall MD. Discussed with the house staff team or resident(s) and agree with the findings and plan in this note. I have reviewed today's Medications, Vital Signs, and Labs. DOS 06/17 documented in this encounter H&P Notes * Laquita Kelley MD - 06/16/2024 7:59 PM CST [facility] History and Physical - Medicine Service, [...] IV -mIVF with NS at 100ml/hr -Continue TOUR GUIDE hydroxyurea 1000mg BID -Continue TOUR GUIDE folic acid 1mg -PRN zofran for nausea -PRN benadryl for itching #ANGIE Likely prerenal with decreased PO intake. -mIVF with NS -Monitor #Insomnia -Continue TOUR GUIDE fluoxetine Diet: Regular DVT Prophylaxis: Enoxaparin (Lovenox) SQ Santiago Catheter: Not present Fluids: NS at 100ml/hr Lines: PRESENT Cardiac Monitoring: None Code Status: Full Clinically Significant Risk Factors Present on Admission # Anemia: based on hgb <11 # Financial/Environmental Concerns: Disposition Plan Expected Discharge Date: 06/18/2024 The patient's care was discussed with the Attending Physician, Dr. Markham . 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 [...] 4 MG/0.1ML nasal spray No No Sig: Kegley 1 spray (4 mg) into one nostril [...] Esdras Markham MD at 06/17/2024 11:00 AM SAP BPC DEVELOPER BPC DEVELOPER BPC DEVELOPER Associated attestation - Esdras Markham MD - 06/17/2024 11:00 AM SAP BPC DEVELOPER Physician Attestation I saw this patient with [...] this encounter Consult Notes * CurtisAdelaide beltran, LINEN SUPPLY LOAD BUILDER - 06/18/2024 10:26 AM CSTAssociated Order(s): CARE [...] Communication Assessment Patient's communication style: spoken language (Honduran or Bilingual) Cognitive Cognitive/Neuro/Behavioral: WDL Living Environment: [...] Depression: Not at risk (04/11/2024) [facility] PHQ-2 PHQ-2 TOTAL SCORE: 1 Housing [...] Social Connections: Socially Integrated (03/28/2024) Received from [employer] [facility] Social Connections Do you often feel [...] No Current Concerns Values/Beliefs: Spiritual, Cultural Beliefs, Confucianist Practices, Values that affect care: no Discussed [...] Care management signing off. LAURA Palacios 06/18/2024 Sales Correspondence Clerk Social Work and Care Management Department SEARCHABLE in [employer] - search SOCIAL WORK [place] [phone]) Wednesday and Wednesday Units: 4A Vocera, 4C Vocera, & 4E Vocera Units: 5A 9311-4665 Vocera, 5A 7166-2688 Vocera , BMT SW 1 BMT SW 2, BMT SW 3 & BMT SW 4 5C OffService 5401 - 5414 5C Off Service [phone] Units: 6A Vocera & 6B Vocera Units: 6C Vocera Units: 7A Vocera & 7B Vocera Units: 7C Med Surg 7401 thru 7418 and 7C Med Surg 7502 thru 7521 Unit: [place]re ED Vocera & [place] Obs Vocera [facility] ([phone]) Wednesday and Wednesday Units: 5 Ortho Vocera, 5 Med Surg Vocera & WB ED Vocera Units: 6 Med Surg Vocera, 8 Med Surg Vocera, & 10 ICU Vocera After hours Vocera [facility] and After Hours Vocera [place] Please NOTE changes to times below: Wednesday & Wednesday (1629 - 2029) Wed-Fri (4010-5223) [facility]V Recognized Holidays (7188-6824) Units: ALL - see above VOCERA links to units BPC DEVELOPER * Drake Nina MD - 06/17/2024 8:55 AM CSTAssociated Order(s): HEMATOLOGY ADULT IP CONSULT Images from the original note were not included. Hematology Consult Note Date of Service: 06/17/2024 Patient: Gianna Hernánedz Admission Date: 06/16/2024 Hospital Day # 1 Hematology Diagnosis: Sickle Cell Disease Primary Outpatient Open Cut Examiner: Dr. Samuel Reason for Consult: Vasoocclusive pain [...] the care coordination note. Please continue her TOUR GUIDE hydrea and folic acid. Recommendations: - Please follow pain plan as outlined in the care coordination note in the summary section. - Ordered 1 unit PRBC along with blood consent which is placed in the chart. - Please continue TOUR GUIDE hydrea 1000 mg BID, Folate 1mg daily. [...] Drake Nina MD Hematology/Oncology/BMT Fellow PGY4 Pager: [phone] History of Present Illness: Gianna Hernández is [...] Currently Drug use: Never Social History Narrative Myja-wa-wsvg mom. Recently moved to [place] from [place], [place]. She is 1 of 9 [...] Social Connections: Socially Integrated (03/28/2024) [facility]ceived from [facility] Social Connections Do you often feel [...] 2 tablet 2 tablet Oral BID PRN Lauqita Kelley MD sodium chloride (PF) 0.9% PF [...] inadequate. naloxone (NARCAN) 4 MG/0.1ML nasal spray Kegley 1 spray (4 mg) into one nostril [...] Araceli Ramires MD at 06/17/2024 11:14 AM SAP BPC DEVELOPER BPC DEVELOPER BPC DEVELOPER Associated attestation - Araceli Ramires MD - 06/17/2024 11:14 AM SAP BPC DEVELOPER Hematology Consult Attending Attestation I reviewed the [...] Overall, I spent 60 minutes today (DOS) [id number] and/or coordinating care as documented above and specifically listed as below: --Reviewing documentation related to patient's history and this current admission available in [facility] --Review and clinical interpretation of pertinent laboratory [...] time: Means of arrival: Comments: G 41 BPC DEVELOPER * Abimael Schofield MD - 06/16/2024 5:18 PM CST ED Provider Note [facility] History Chief Complaint Patient presents with Shortness [...] sinus tachycardia rate of 122 with a WA interval of 0.128 and a QRS duration of 0.074. The patient had a normal axis with no acute ST or T wave changes significant for ischemia. This is read by me personally. Procedures Results for orders placed or performed during the hospital encounter of 06/16/24 Chest XR, PA & LAT Status: None Narrative EXAM: XR CHEST 2 VIEWS LOCATION: [facility] DATE: 06/16/2024 INDICATION: chest pain COMPARISON: 06/12/2024 [...] Range ABO/RH(D) A POS SPECIMEN EXPIRATION DATE [id number] CBC with platelets differential Status: Abnormal (In process) Narrative The following orders were created for panel order CBC with platelets differential. Procedure Abnormality Status --------- ------ CBC with platelets and d...[[id number]] Abnormal Preliminary result RBC and Platelet Morphology[[id number]] In process Please view results for these tests on the individual orders. ABO/Rh type and screen Status: None (In process) Narrative The following orders were created for panel order ABO/Rh type and screen. Procedure Abnormality Status --------- ------ Adult Type and Screen[[id number]] Preliminary result Please view results for these tests on the individual orders. Medications sodium chloride (PF) 0.9% PF flush 3 mL (has no administration in time range) sodium chloride (PF) 0.9% PF flush 3 mL (has no administration in time range) sodium chloride 0.9% BOLUS 500 mL (500 mLs Intravenous $New Bag 06/16/24 8311) sodium chloride 0.9 % infusion (has no administration in time range) hydromorphone (DILAUDID) injection 2 mg (2 mg Intravenous $Given 06/16/24 5430) Critical care was not performed. Medical Decision [...] chest syndrome Admit Med Abimael Schofield MD [facility] EMERGENCY DEPARTMENT 06/16/2024 Abimael Schofield MD 06/16/24 1846 BPC DEVELOPER * Yelitza Manriquez RN - 06/16/2024 4:37 [...] WDL WDL Cognitive/Neuro/Behavioral WDL Cognitive/Neuro/Behavioral WDL WDL BPC DEVELOPER documented in this encounter Miscellaneous Notes * [...] verbalized hope to discharge to home today BPC DEVELOPER * Summary of Care - Rene Morocho [...] (January-July only): No, pt declined Detailed Belongings: Betances sweater, brown jacket, sweatpants, glasses, wallet, phone, 2 chargers, air pods BPC DEVELOPER * Plan of Care - Sarai Shrestha RN - 06/20/2024 12:11 AM CST Goal Outcome Evaluation: BP 103/79,HR 87bpm, resp 18,O2 99 RA Shift:4823-8896 Alert and oriented x4. Independent with ADLs. VSS. Pain managed with Q 2 hrs IV Dilaudid. C/O nausea PRN Zofran administered;effective. R chest port infusing LR @ 75 ml/hr. Report given to Rene BLACK in 7C. BPC DEVELOPER * Plan of Care - Amelia Gannon RN - 06/19/2024 6:26 AM CST Images from the original note were not included. Shift: 1050-3923 VS: BP 118/85 (BP Location: Left arm) Pulse 99 Temp 98.2 ??F (36.8 ??C) (Oral) Resp 18 [id number]% Pain: Sickle cell pain. Tx with scheduled dilaudid q2hr Neuro: WDL, A&Ox4 Cardiac: WDL Respiratory: WDL, on RA, on pulse ox GI/: WDL, Voiding spontaneously Diet/Appetite: Regular diet LDA's: R. Chest port infusing LR @ 75 Skin: WDL Activity: Independent Tests/Procedures: Pertinent Labs/Lab Collection: Plan: Goal Outcome Evaluation: BPC DEVELOPER * Plan of Care - Adelaide Acevedo MSW - 06/18/2024 11:05 AM CST Goal Outcome Evaluation: Plan of Care Reviewed With: patient Overall Patient Progress: improvingOverall Patient Progress: improving Pt anticipates discharge home w/ family once med ready BPC DEVELOPER * Plan of Care - Amelia Gannon RN - 06/18/2024 6:51 AM CST Shift: 9772-0154 VS: BP 115/66 (BP Location: Right arm, [...] Platelet, Creatinine, Reticulocyte Plan: Goal Outcome Evaluation: BPC DEVELOPER * Plan of Care - Lowell Pepper RN - 06/17/2024 9:37 PM CSTSummary: 1436-6493 BP 110/64 (BP Location: Right arm, Patient [...] Goal: Optimal Comfort and Wellbeing Outcome: Progressing BPC DEVELOPER * Provider Notification - Lowell Pepper RN - 06/17/2024 10:00 AM CST 06/17/24 0857 Critical Test Results/Notification Critical Lab Result (Lab Name and Value) Hgb 6.3 What Time Did The Lab Notify You? (follow up page. to day time provider.) Provider Notified yes Date of Provider Notification 06/17/24 Time of Provider Notification 0848 Mechanism of Provider notification telephone (via CR2) What Provider Did You Notify? Neptali Elias MD Response aware (per primary teams. Awaiting recommendations from hematology team.) BPC DEVELOPER * Plan of Care - Zaynab Veliz RN - 06/17/2024 6:55 AM CST Goal Outcome Evaluation: Plan of Care Reviewed With: patient Overall Patient Progress: improving Outcome Evaluation: Pt presented to ED with acute onset left sided chest pain & sickle cell pain crisis Shift: 2718-4630 VS: Stable on RA, afebrile Neuro: A&Ox4 Labs: hemoglobin 6.3, provider notified Pain/Nausea: pain rated 8-9/10 PRN: benadryl X2, zofran x 1 Diet: Regular IV Access: none Infusion(s): NACL 100ml/hr Lines/Drains: L-chest wall GI/: voids without difficulty Skin: intact Mobility: up ad chandler Plan: Continue POC BPC DEVELOPER * Provider Notification - Zaynab Veliz RN - 06/17/2024 6:47 AM SAP BPC DEVELOPER Jovan encinas lab called, critical value, pt hemoglobin 6.3. BPC DEVELOPER * Medication Scribe - Admission Medication History - Yennifer Edwards - 06/17/2024 4:14 AM CST Medication Scribe Admission Medication History Admission medication history is complete. The information provided in this note is only as accurateas the sources available at the time of the update. Information Source(s): Patient via in-person Pertinent Information: per pt+CE, pt reported taking medications on TOUR GUIDE medication list as directed. No DRH. Changes made to TOUR GUIDE medication list: Added: None Deleted: None Changed: None Allergies reviewed with patient and updates made in EHR: yes Medication History Completed By: Yennifer Edwards 06/17/2024 4:14 AM TOUR GUIDE Med List Medication Sig Last Dose/Taking cefpodoxime [...] 1 tablet by mouth daily. 06/16/2024 Morning BPC DEVELOPER BPC DEVELOPER documented in this encounter Plan of Treatment Not on file documented as of this encounter Goals Goal Patient Goal Type Associated Problems Recent Progress Patient-Stated? Author Pain Management General On track( 025 12:40 PM SAP BPC DEVELOPER) Yes Juhi Benson, SOFIA Note: Goal [...] PLATELETS AND DIFFERENTIAL STAT 06/20/2024 5:48 AM SAP BPC DEVELOPER LACTATE DEHYDROGENASE Routine 06/20/2024 5:48 AM SAP BPC DEVELOPER CBC WITH PLATELETS & DIFFERENTIAL STAT 06/20/2024 5:48 AM SAP BPC DEVELOPER RETICULOCYTE COUNT Routine 06/20/2024 5: 48 AM SAP BPC DEVELOPER COMPREHENSIVE METABOLIC PANEL Routine 06/20/2024 5:48 AM SAP BPC DEVELOPER RBC AND PLATELET MORPHOLOGY STAT 06/19/2024 9:30 AM SAP BPC DEVELOPER CBC WITH PLATELETS AND DIFFERENTIAL STAT 06/19/2024 9:30 AM SAP BPC DEVELOPER LACTATE DEHYDROGENASE STAT 06/19/2024 9:30 AM SAP BPC DEVELOPER CBC WITH PLATELETS & DIFFERENTIAL STAT 06/19/2024 9:30 AM SAP BPC DEVELOPER RETICULOCYTE COUNT STAT 06/19/2024 9: 30 AM SAP BPC DEVELOPER COMPREHENSIVE METABOLIC PANEL STAT 06/19/2024 9:30 AM SAP BPC DEVELOPER PLATELET COUNT STAT 06/19/2024 12:17 AM SAP BPC DEVELOPER CREATININE STAT 06/19/2024 12:17 AM SAP BPC DEVELOPER CBC WITH PLATELETS AND DIFFERENTIAL STAT 06/18/2024 8:24 AM SAP BPC DEVELOPER LACTATE DEHYDROGENASE STAT 06/18/2024 8:24 AM SAP BPC DEVELOPER CBC WITH PLATELETS & DIFFERENTIAL STAT 06/18/2024 8:24 AM SAP BPC DEVELOPER RETICULOCYTE COUNT STAT 06/18/2024 8: 24 AM SAP BPC DEVELOPER DIFFERENTIAL STAT 06/18/2024 8:24 AM SAP BPC DEVELOPER COMPREHENSIVE METABOLIC PANEL STAT 06/18/2024 8:24 AM SAP BPC DEVELOPER ROUTINE UA WITH MICROSCOPIC REFLEX TO CULTURE STAT 06/17/2024 1:11 PM SAP BPC DEVELOPER TRANSFUSE RED BLOOD CELLS (UNIT) STAT 06/17/2024 10:26 AM SAP BPC DEVELOPER PREPARE RED BLOOD CELLS (UNIT) STAT 06/17/2024 9:12 AM SAP BPC DEVELOPER TRANSFERRIN Add-On 06/17/2024 6:16 AM SAP BPC DEVELOPER IRON AND IRON BINDING CAPACITY Add-On 06/17/2024 6:16 AM SAP BPC DEVELOPER BASIC METABOLIC PANEL STAT 06/17/2024 6:16 AM SAP BPC DEVELOPER CBC WITH PLATELETS STAT 06/17/2024 6: 16 AM SAP BPC DEVELOPER TROPONIN T, HIGH SENSITIVITY STAT 06/16/2024 9:33 PM SAP BPC DEVELOPER XR CHEST 2 VIEWS STAT 06/16/2024 6:09 PM SAP BPC DEVELOPER RBC AND PLATELET MORPHOLOGY STAT 06/16/2024 5:37 PM SAP BPC DEVELOPER CBC WITH PLATELETS AND DIFFERENTIAL STAT 06/16/2024 5:37 PM SAP BPC DEVELOPER TYPE AND SCREEN, ADULT STAT 5:37 PM SAP BPC DEVELOPER TROPONIN T, HIGH SENSITIVITY STAT 06/16/2024 5:37 PM SAP BPC DEVELOPER CBC WITH PLATELETS & DIFFERENTIAL STAT 06/16/2024 5:37 PM SAP BPC DEVELOPER PROLACTIN STAT 06/16/2024 5:37 PM SAP BPC DEVELOPER COMPREHENSIVE METABOLIC PANEL STAT 06/16/2024 5:37 PM SAP BPC DEVELOPER BLOOD CULTURE STAT 06/16/2024 5:37 PM SAP BPC DEVELOPER ABO/RH TYPE AND SCREEN STAT 5:37 PM SAP BPC DEVELOPER EKG 12-LEAD, TRACING ONLY STAT 06/16/2024 4:55 PM SAP BPC DEVELOPER documented in this encounter Results * (ABNORMAL) CBC with platelets and differential (06/20/2024 5:48 AM SAP BPC DEVELOPER) WBC Count 9.3 4.0 - 11.0 10e3/uL 06/20/2024 6:05 AM SAP BPC DEVELOPER [facility] RBC Count 2.54(L) 3.80 - 5.20 10e6/uL 06/20/2024 6:05 AM SAP BPC DEVELOPER [facility] Hemoglobin 8.0(L) 11.7 - 15.7 g/dL 06/20/2024 6:05 AM SAP BPC DEVELOPER [facility] Hematocrit 23.2(L) 35.0 - 47.0 % 06/20/2024 6:05 AM SAP BPC DEVELOPER [facility] MCV 91 78 - 100 fL 06/20/2024 6:05 AM SAP BPC DEVELOPER [facility] MCH 31.5 26.5 - 33.0 pg 06/20/2024 6:05 AM SAP BPC DEVELOPER [facility] MCHC 34.5 31.5 - 36.5 g/dL 06/20/2024 6:05 AM SAP BPC DEVELOPER [facility] RDW 18.4(H) 10.0 - 15.0 % 06/20/2024 6:05 AM SAP BPC DEVELOPER [facility] Platelet Count 435 150 - 450 10e3/uL 06/20/2024 6:05 AM SAP BPC DEVELOPER [facility] % Neutrophils 47 % 06/20/2024 6:05 AM SAP BPC DEVELOPER [facility] % Lymphocytes 43 % 06/20/2024 6:05 AM SAP BPC DEVELOPER [facility] % Monocytes 6 % 06/20/2024 6:05 AM SAP BPC DEVELOPER [facility] % Eosinophils 3 % 06/20/2024 6:05 AM SAP BPC DEVELOPER [facility] % Basophils 1 % 06/20/2024 6:05 AM SAP BPC DEVELOPER [facility] LABORATORY % Immature Granulocytes 1 % 06/20/2024 6:05 AM SAP BPC DEVELOPER [facility] NRBCs per 100 WBC 1(H) <1 /100 025 6:05 AM SAP BPC DEVELOPER [facility] Absolute Neutrophils 4.4 1.6 - 8.3 10e3/uL 06/20/2024 6:05 AM SAP BPC DEVELOPER [facility] Absolute Lymphocytes 4.0 0.8 - 5.3 10e3/uL 06/20/2024 6:05 AM SAP BPC DEVELOPER [facility] Absolute Monocytes 0.5 0.0 - 1.3 10e3/uL 06/20/2024 6:05 AM SAP BPC DEVELOPER [facility] Absolute Eosinophils 0.3 0.0 - 0.7 10e3/uL 06/20/2024 6:05 AM SAP BPC DEVELOPER [facility] Absolute Basophils 0.1 0.0 - 0.2 10e3/uL 06/20/2024 6:05 AM SAP BPC DEVELOPER [facility] Absolute Immature Granulocytes 0.1 <=0.4 10e3/uL 06/20/2024 6:05 AM SAP BPC DEVELOPER [facility] Absolute NRBCs 0.1 10e3/uL 06/20/2024 6:05 AM SAP BPC DEVELOPER [facility] Blood (Portacath) IVAD (Port) / Unknown 06/20/2024 5:48 AM SAP BPC DEVELOPER 06/20/2024 5:55 AM SAP BPC DEVELOPER Rl Elias MD LAB - BLOOD ORDER SYD Final Result [facility] LABORAT[facility] [address] [facility], [address] * (ABNORMAL) Reticulocyte count (06/20/2024 5:48 AM SAP BPC DEVELOPER) [facility] % Reticulocyte 9.6(H) 0.5 - 2.0 % 06/20/2024 6:37 AM SAP BPC DEVELOPER [facility] Absolute Reticulocyte 0.236(H) 0.025 - 0.095 10e6/uL 06/20/2024 6:37 AM SAP BPC DEVELOPER [facility] Blood (Portacath) IVAD (Port) / Unknown 06/20/2024 5:48 AM SAP BPC DEVELOPER 06/20/2024 5:55 AM SAP BPC DEVELOPER Rl lEias MD LAB - BLOOD ORDER SYD Final Result [facility] [address] [facility], [address] [place] [address], [place] * (ABNORMAL) Comprehensive metabolic panel (06/20/2024 5:48 AM SAP BPC DEVELOPER) Sodium 133(L) 135 - 145 mmol/L 06/20/2024 6:35 AM SAP BPC DEVELOPER [facility] Potassium 4.6 3.4 - 5.3 mmol/L 06/20/2024 6:35 AM SAP BPC DEVELOPER [facility] Carbon Dioxide (CO2) 21(L) 22 - 29 mmol/L 06/20/2024 6:35 AM SAP BPC DEVELOPER [facility] Anion Gap 8 7 - 15 mmol/L 06/20/2024 6:35 AM SAP BPC DEVELOPER [facility] Urea Nitrogen 14.6 6.0 - 20.0 mg/dL 06/20/2024 6:35 AM SAP BPC DEVELOPER [facility] Creatinine 0.66 0.51 - 0.95 mg/dL 06/20/2024 6:35 AM SAP BPC DEVELOPER [facility] GFR Estimate >90 >60 mL/min/1.7 3m2 06/20/2024 6:35 AM SAP BPC DEVELOPER [facility] Comment:eGFR calculated usin 2020 CKD-EPI equation. Calcium 8.7(L) 8.8 - 10.4 mg/dL 06/20/2024 6:35 AM SAP BPC DEVELOPER [facility] Chloride 104 98 - 107 mmol/L 06/20/2024 6:35 AM SAP BPC DEVELOPER [facility] Glucose 100(H) 70 - 99 mg/dL 06/20/2024 6:35 AM SAP BPC DEVELOPER [facility] Alkaline Phosphatase 98 40 - 150 U/L 06/20/2024 6:35 AM SAP BPC DEVELOPER [facility] AST 67(H) 0 - 45 U/L 06/20/2024 6:35 AM SAP BPC DEVELOPER [facility] ALT 40 0 - 50 U/L 06/20/2024 6:35 AM SAP BPC DEVELOPER [facility] Protein Total 7.2 6.4 - 8.3 g/dL 06/20/2024 6:35 AM SAP BPC DEVELOPER [facility] Albumin 3.9 3.5 - 5.2 g/dL 06/20/2024 6:35 AM SAP BPC DEVELOPER [facility] Bilirubin Total 1.5(H) <=1.2 mg/dL 06/20/2024 6:35 AM SAP BPC DEVELOPER [facility] Blood (Portacath) IVAD (Port) / Unknown 06/20/2024 5:48 AM SAP BPC DEVELOPER 06/20/2024 5:55 AM SAP BPC DEVELOPER Rl Elias MD LAB - BLOOD ORDER SYD Final Result [facility] [address] [facility], [address] [phone] * (ABNORMAL) Lactate Dehydrogenase (06/20/2024 5:48 AM SAP BPC DEVELOPER) [facility] Lactate Dehydrogenase 571(H) 0 - 250 U/L 06/20/2024 6:35 AM SAP BPC DEVELOPER [facility] Blood (Portacath) IVAD (Port) / Unknown 06/20/2024 5:48 AM SAP BPC DEVELOPER 06/20/2024 5:55 AM SAP BPC DEVELOPER Rl Elias MD LAB - BLOOD ORDER SYD Final Result [facility] [address] [facility], [address] [phone] * (ABNORMAL) RBC and Platelet Morphology (06/19/2024 9:30 AM SAP BPC DEVELOPER) [facility] RBC Morphology Confirmed RBC Indices 06/19/2024 11:43 AM SAP BPC DEVELOPER [facility] Platelet Assessment Automated Count Confirmed. Giant platelets are present.(A) Automated Count Confirmed. Platelet morphology is normal. 06/19/2024 11:43 AM SAP BPC DEVELOPER [facility] Giant Platelets Slight(A) None Seen 11:43 AM SAP BPC DEVELOPER [facility] Elliptocytes None Seen None Seen 06/19/2024 11:43 AM SAP BPC DEVELOPER [facility] Polychromasia Slight(A) None Seen 06/19/2024 11:43 AM SAP BPC DEVELOPER [facility] RBC Fragments Slight(A) None Seen 06/19/2024 11:43 AM SAP BPC DEVELOPER [facility] Reactive Lymphocytes Present(A) None Seen 06/19/2024 11:43 AM SAP BPC DEVELOPER [facility] Sickle Cells Moderate(A) None Seen 06/19/2024 11:43 AM SAP BPC DEVELOPER [facility] Smudge Cells Present(A) None Seen 06/19/2024 11:43 AM SAP BPC DEVELOPER [facility] Target Cells Moderate(A) None Seen 06/19/2024 11:43 AM SAP BPC DEVELOPER [facility] Blood CENTRAL VENOUS CATHETER / Unknown VAD(CVC, PICC) / Unknown 06/19/2024 9:30 AM SAP BPC DEVELOPER 06/19/2024 9:42 AM SAP BPC DEVELOPER Rl Elias MD LAB - BLOOD ORDER SYD Final Result [facility] [address] [facility], [address] [place] [address] * (ABNORMAL) CBC with platelets and differential (06/19/2024 9:30 AM SAP BPC DEVELOPER) WBC Count 9.9 4.0 - 11.0 10e3/uL 06/19/2024 11:43 AM SAP BPC DEVELOPER [facility] RBC Count 2.55(L) 3.80 - 5.20 10e6/uL 06/19/2024 11:43 AM SAP BPC DEVELOPER [facility] Hemoglobin 8.1(L) 11.7 - 15.7 g/dL 06/19/2024 11:43 AM SAP BPC DEVELOPER [facility] Hematocrit 24.0(L) 35.0 - 47.0 % 06/19/2024 11:43 AM SAP BPC DEVELOPER [facility] MCV 94 78 - 100 fL 06/19/2024 11:43 AM SAP BPC DEVELOPER [facility] MCH 31.8 26.5 - 33.0 pg 06/19/2024 11:43 AM SAP BPC DEVELOPER [facility] MCHC 33.8 31.5 - 36.5 g/dL 06/19/2024 11:43 AM SAP BPC DEVELOPER [facility] RDW 18.4(H) 10.0 - 15.0 % 06/19/2024 11:43 AM SAP BPC DEVELOPER [facility] Platelet Count 471(H) 150 - 450 10e3/uL 06/19/2024 11:43 AM SAP BPC DEVELOPER [facility] % Neutrophils 62 % 06/19/2024 11:43 AM SAP BPC DEVELOPER [facility] % Lymphocytes 28 % 06/19/2024 11:43 AM SAP BPC DEVELOPER [facility] % Monocytes 6 % 06/19/2024 11:43 AM SAP BPC DEVELOPER [facility] % Eosinophils 3 % 06/19/2024 11:43 AM SAP BPC DEVELOPER [facility] % Basophils 1 % 06/19/2024 11:43 AM SAP BPC DEVELOPER [facility] % Immature Granulocytes 1 % 06/19/2024 11:43 AM SAP BPC DEVELOPER [facility] NRBCs per 100 WBC 4(H) <1 /100 025 11:43 AM SAP BPC DEVELOPER [facility] Absolute Neutrophils 6.1 1.6 - 8.3 10e3/uL 06/19/2024 11:43 AM SAP BPC DEVELOPER [facility] Absolute Lymphocytes 2.7 0.8 - 5.3 10e3/uL 06/19/2024 11:43 AM SAP BPC DEVELOPER [facility] Absolute Monocytes 0.6 0.0 - 1.3 10e3/uL 06/19/2024 11:43 AM SAP BPC DEVELOPER [facility] Absolute Eosinophils 0.3 0.0 - 0.7 10e3/uL 06/19/2024 11:43 AM SAP BPC DEVELOPER [facility] Absolute Basophils 0.1 0.0 - 0.2 10e3/uL 06/19/2024 11:43 AM SAP BPC DEVELOPER [facility] Absolute Immature Granulocytes 0.1 <=0.4 10e3/uL 06/19/2024 11:43 AM SAP BPC DEVELOPER [facility] Absolute NRBCs 0.4 10e3/uL 06/19/2024 11:43 AM SAP BPC DEVELOPER [facility] Blood CENTRAL VENOUS CATHETER / Unknown VAD(CVC, PICC) / Unknown 06/19/2024 9:30 AM SAP BPC DEVELOPER 06/19/2024 9:42 AM SAP BPC DEVELOPER Rl Elias MD LAB - BLOOD ORDER SYD Final Result [facility] [address] [facility], [address] [place] [address] * (ABNORMAL) Reticulocyte count (06/19/2024 9:30 AM SAP BPC DEVELOPER) [facility] % Reticulocyte 9.2(H) 0.5 - 2.0 % 06/19/2024 9:48 AM SAP BPC DEVELOPER [facility] Absolute Reticulocyte 0.234(H) 0.025 - 0.095 10e6/uL 06/19/2024 9:48 AM SAP BPC DEVELOPER [facility] Blood CENTRAL VENOUS CATHETER / Unknown VAD(CVC, PICC) / Unknown 06/19/2024 9:30 AM SAP BPC DEVELOPER 06/19/2024 9:42 AM SAP BPC DEVELOPER Rl Elias MD LAB - BLOOD ORDER SYD Final Result [facility] [address] [facility], [address] [place] [address] * (ABNORMAL) Comprehensive metabolic panel (06/19/2024 9:30 AM SAP BPC DEVELOPER) Sodium 135 135 - 145 mmol/L 06/19/2024 10:13 AM SAP BPC DEVELOPER [facility] Potassium 4.4 3.4 - 5.3 mmol/L 06/19/2024 10:13 AM SAP BPC DEVELOPER [facility] Carbon Dioxide (CO2) 21(L) 22 - 29 mmol/L 06/19/2024 10:13 AM SAP BPC DEVELOPER [facility] Anion Gap 9 7 - 15 mmol/L 06/19/2024 10:13 AM SAP BPC DEVELOPER [facility] Urea Nitrogen 12.3 6.0 - 20.0 mg/dL 06/19/2024 10:13 AM SAP BPC DEVELOPER [facility] Creatinine 0.68 0.51 - 0.95 mg/dL 06/19/2024 10:13 AM SAP BPC DEVELOPER [facility] GFR Estimate >90 >60 mL/min/1.7 3m2 06/19/2024 10:13 AM SAP BPC DEVELOPER [facility] Comment:eGFR calculated us2020 CKD-EPI equation. Calcium 8.9 8.8 - 10.4 mg/dL 06/19/2024 10:13 AM SAP BPC DEVELOPER [facility] Chloride 105 98 - 107 mmol/L 06/19/2024 10:13 AM SAP BPC DEVELOPER [facility] Glucose 100(H) 70 - 99 mg/dL 06/19/2024 10:13 AM SAP BPC DEVELOPER [facility] Alkaline Phosphatase 94 40 - 150 U/L 06/19/2024 10:13 AM SAP BPC DEVELOPER [facility] AST 54(H) 0 - 45 U/L 06/19/2024 10:13 AM SAP BPC DEVELOPER [facility] ALT 31 0 - 50 U/L 06/19/2024 10:13 AM SAP BPC DEVELOPER [facility] Protein Total 7.1 6.4 - 8.3 g/dL 06/19/2024 10:13 AM SAP BPC DEVELOPER [facility] Albumin 3.9 3.5 - 5.2 g/dL 06/19/2024 10:13 AM SAP BPC DEVELOPER [facility] Bilirubin Total 1.5(H) <=1.2 mg/dL 06/19/2024 10:13 AM SAP BPC DEVELOPER [facility] Blood CENTRAL VENOUS CATHETER / Unknown VAD(CVC, PICC) / Unknown 06/19/2024 9:30 AM SAP BPC DEVELOPER 06/19/2024 9:41 AM SAP BPC DEVELOPER Rl Elias MD LAB - BLOOD ORDER SYD Final Result [facility] [address] [facility], [address] * (ABNORMAL) Lactate Dehydrogenase (06/19/2024 9:30 AM SAP BPC DEVELOPER) Lactate Dehydrogenase 507(H) 0 - 250 U/L 06/19/2024 10:13 AM SAP BPC DEVELOPER [facility] Blood CENTRAL VENOUS CATHETER / Unknown VAD(CVC, PICC) / Unknown 06/19/2024 9:30 AM SAP BPC DEVELOPER 06/19/2024 9:41 AM SAP BPC DEVELOPER Rl Elias MD LAB - BLOOD ORDER SYD Final Result [facility] [address] [facility], [address] * (ABNORMAL) Platelet count (06/19/2024 12:17 AM SAP BPC DEVELOPER) Platelet Count 467(H) 150 - 450 10e3/uL 06/19/2024 12:44 AM SAP BPC DEVELOPER [facility] Blood BLOOD SPECIMEN / Unknown Venipuncture / Unknown 06/19/2024 12:17 AM SAP BPC DEVELOPER 06/19/2024 12:26 AM SAP BPC DEVELOPER Laquita Kelley MD LAB - BLOOD ORDERABLES Final Re sult [facility] [address] [facility], [address] * Creatinine (06/19/2024 12:17 AM SAP BPC DEVELOPER) Creatinine 0.72 0.51 - 0.95 mg/dL 06/19/2024 12:51 AM SAP BPC DEVELOPER [facility] GFR Estimate >90 >60 mL/min/1.7 3m2 06/19/2024 12:51 AM SAP BPC DEVELOPER [facility] Comment:eGFR calculated usin 2020 CKD-EPI equation. Blood BLOOD SPECIMEN / Unknown Venipuncture / Unknown 06/19/2024 12:17 AM SAP BPC DEVELOPER 06/19/2024 12:26 AM SAP BPC DEVELOPER Laquita Kelley MD LAB - BLOOD ORDERABLES Final Re sult Performing Organization Address City/[facility]/ZIP Co de Phone Number [facility] [address] [facility], [address] * (ABNORMAL) Manual Differential (06/18/2024 8:24 AM SAP BPC DEVELOPER) % Neutrophils 52 % 06/18/2024 9:35 AM SAP BPC DEVELOPER [facility] % Lymphocytes 39 % 06/18/2024 9:35 AM SAP BPC DEVELOPER [facility] % Monocytes 7 % 06/18/2024 9:35 AM SAP BPC DEVELOPER [facility] % Eosinophils 3 % 06/18/2024 9:35 AM SAP BPC DEVELOPER [facility] % Basophils 0 % 06/18/2024 9:35 AM SAP BPC DEVELOPER [facility] NRBCs per 100 WBC 13(H) <=0 % 06/18/2024 9:35 AM SAP BPC DEVELOPER [facility] Absolute Neutrophils 5.6 1.6 - 8.3 10e3/uL 06/18/2024 9:35 AM SAP BPC DEVELOPER [facility] Absolute Lymphocytes 4.2 0.8 - 5.3 10e3/uL 06/18/2024 9:35 AM SAP BPC DEVELOPER [facility] Absolute Monocytes 0.7 0.0 - 1.3 10e3/uL 06/18/2024 9:35 AM SAP BPC DEVELOPER [facility] Absolute Eosinophils 0.3 0.0 - 0.7 10e3/uL 06/18/2024 9:35 AM SAP BPC DEVELOPER [facility] Absolute Basophils 0.0 0.0 - 0.2 10e3/uL 06/18/2024 9:35 AM SAP BPC DEVELOPER [facility] Absolute NRBCs 1.4(H) <=0.0 10e3/uL 025 9:35 AM SAP BPC DEVELOPER [facility] RBC Morphology Confirmed RBC Indices 06/18/2024 9:35 AM SAP BPC DEVELOPER [facility] Platelet Assessment Automated Count Confirmed. Platelet morphology is normal. Automated Count Confirmed. Platelet morphology is normal. 06/18/2024 9:35 AM SAP BPC DEVELOPER [facility] RBC Fragments Slight(A) None Seen 06/18/2024 9:35 AM SAP BPC DEVELOPER [facility] Polychromasia Slight(A) None Seen 06/18/2024 9:35 AM SAP BPC DEVELOPER [facility] Sickle Cells Moderate(A) None Seen 06/18/2024 9:35 AM SAP BPC DEVELOPER [facility] Blood BLOOD SPECIMEN / Unknown Venipuncture / Unknown 06/18/2024 8:24 AM SAP BPC DEVELOPER 06/18/2024 8:32 AM SAP BPC DEVELOPER us Rl Elias MD LAB - BLOOD ORDER SYD Final Result [facility] [address] [facility], [address] [place] [address], [facility] * (ABNORMAL) CBC with platelets and differential (06/18/2024 8:24 AM SAP BPC DEVELOPER) WBC Count 10.8 4.0 - 11.0 10e3/uL 06/18/2024 9:24 AM SAP BPC DEVELOPER [facility] RBC Count 2.51(L) 3.80 - 5.20 10e6/uL 06/18/2024 9:24 AM SAP BPC DEVELOPER [facility] Hemoglobin 8.1(L) 11.7 - 15.7 g/dL 06/18/2024 9:24 AM SAP BPC DEVELOPER [facility] Hematocrit 23.1(L) 35.0 - 47.0 % 06/18/2024 9:24 AM SAP BPC DEVELOPER [facility] MCV 92 78 - 100 fL 06/18/2024 9:24 AM SAP BPC DEVELOPER [facility] MCH 32.3 26.5 - 33.0 pg 06/18/2024 9:24 AM SAP BPC DEVELOPER [facility] MCHC 35.1 31.5 - 36.5 g/dL 06/18/2024 9:24 AM SAP BPC DEVELOPER [facility] RDW 18.7(H) 10.0 - 15.0 % 06/18/2024 9:24 AM SAP BPC DEVELOPER [facility] Platelet Count 452(H) 150 - 450 10e3/uL 06/18/2024 9:24 AM SAP BPC DEVELOPER [facility] Blood BLOOD SPECIMEN / Unknown Venipuncture / Unknown 06/18/2024 8:24 AM SAP BPC DEVELOPER 06/18/2024 8:32 AM SAP BPC DEVELOPER Rl Elias MD LAB - BLOOD ORDER SYD Final Result [facility] [address] [facility], [address] [phone] * (ABNORMAL) Reticulocyte count (06/18/2024 8:24 AM SAP BPC DEVELOPER) [facility] % Reticulocyte 10.0(H) 0.5 - 2.0 % 06/18/2024 8:38 AM SAP BPC DEVELOPER [facility] Absolute Reticulocyte 0.250(H) 0.025 - 0.095 10e6/uL 06/18/2024 8:38 AM SAP BPC DEVELOPER [facility] Blood BLOOD SPECIMEN / Unknown Venipuncture / Unknown 06/18/2024 8:24 AM SAP BPC DEVELOPER 06/18/2024 8:32 AM SAP BPC DEVELOPER Rl Elias MD LAB - BLOOD ORDER SYD Final Result [facility] [address] [facility], [address] [place], [place] [id number] * (ABNORMAL) Comprehensive metabolic panel (06/18/2024 8:24 AM SAP BPC DEVELOPER) Sodium 133(L) 135 - 145 mmol/L 06/18/2024 9:02 AM SAP BPC DEVELOPER [facility] Potassium 4.3 3.4 - 5.3 mmol/L 06/18/2024 9:02 AM SAP BPC DEVELOPER [facility] Carbon Dioxide (CO2) 21(L) 22 - 29 mmol/L 06/18/2024 9:02 AM SAP BPC DEVELOPER [facility] Anion Gap 7 7 - 15 mmol/L 06/18/2024 9:02 AM SAP BPC DEVELOPER [facility] Urea Nitrogen 9.2 6.0 - 20.0 mg/dL 06/18/2024 9:02 AM SAP BPC DEVELOPER [facility] Creatinine 0.65 0.51 - 0.95 mg/dL 06/18/2024 9:02 AM SAP BPC DEVELOPER [facility] GFR Estimate >90 >60 mL/min/1.7 3m2 06/18/2024 9:02 AM SAP BPC DEVELOPER [facility] Comment:eGFR calculated us2020 CKD-EPI equation. Calcium 8.7(L) 8.8 - 10.4 mg/dL 06/18/2024 9:02 AM SAP BPC DEVELOPER [facility] Chloride 105 98 - 107 mmol/L 06/18/2024 9:02 AM SAP BPC DEVELOPER [facility] Glucose 92 70 - 99 mg/dL 06/18/2024 9:02 AM SAP BPC DEVELOPER [facility] Alkaline Phosphatase 86 40 - 150 U/L 06/18/2024 9:02 AM SAP BPC DEVELOPER [facility] AST 45 0 - 45 U/L 06/18/2024 9:02 AM SAP BPC DEVELOPER [facility] ALT 27 0 - 50 U/L 06/18/2024 9:02 AM SAP BPC DEVELOPER [facility] Protein Total 7.0 6.4 - 8.3 g/dL 06/18/2024 9:02 AM SAP BPC DEVELOPER [facility] Albumin 3.9 3.5 - 5.2 g/dL 06/18/2024 9:02 AM SAP BPC DEVELOPER [facility] Bilirubin Total 1.4(H) <=1.2 mg/dL 06/18/2024 9:02 AM SAP BPC DEVELOPER [facility] Blood BLOOD SPECIMEN / Unknown Venipuncture / Unknown 06/18/2024 8:24 AM SAP BPC DEVELOPER 06/18/2024 8:32 AM SAP BPC DEVELOPER us Rl Elias MD LAB - BLOOD ORDER SYD Final Result LABORATORY [facility] Core Lab [address] [facility], [address] [phone] * (ABNORMAL) Lactate Dehydrogenase (06/18/2024 8:24 AM SAP BPC DEVELOPER) Lactate Dehydrogenase 491(H) 0 - 250 U/L 06/18/2024 9:02 AM SAP BPC DEVELOPER [facility] Blood BLOOD SPECIMEN / Unknown Venipuncture / Unknown 06/18/2024 8:24 AM SAP BPC DEVELOPER 06/18/2024 8:32 AM SAP BPC DEVELOPER Rl Elias MD LAB - BLOOD ORDER SYD Final Result Performing Organization Address City/[facility] Co de Phone Number LABORATORY [facility] Core Lab [address] [facility], [address] [phone] * Transfuse red blood cells (unit), Sickle Cell (Hgb S) Negative (06/17/2024 2:33 PM SAP BPC DEVELOPER) us Drake Nina MD BLOOD TRANSFUSION ORDERABLES Final Result * Transfuse red blood cells (unit), 1 Units, Sickle Cell (Hgb S) Negative (06/17/2024 2:33 PM SAP BPC DEVELOPER) us Drake Nina MD BLOOD TRANSFUSION ORDERABLES Final Result * (ABNORMAL) UA with Microscopic reflex to Culture (06/17/2024 1:11 PM SAP BPC DEVELOPER) Color Urine Light Yellow Colorless, Straw, Light Yellow, Yellow 06/17/2024 1:48 PM SAP BPC DEVELOPER [facility] Appearance Urine Clear Clear 06/17/19 25 1:48 PM SAP BPC DEVELOPER [facility] Glucose Urine Negative Negative mg/dL 06/17/2024 1:48 PM SAP BPC DEVELOPER [facility] Bilirubin Urine Negative Negative 5 1:48 PM SAP BPC DEVELOPER [facility] Ketones Urine Negative Negative mg/dL 06/17/2024 1:48 PM SAP BPC DEVELOPER [facility] Specific [place] Urine 1.009 1.003 - 1.035 06/17/2024 1:48 PM SAP BPC DEVELOPER [facility] Blood Urine Trace(A) Negative 06/17/2024 1:48 PM SAP BPC DEVELOPER [facility] pH Urine 6.5 5.0 - 7.0 06/17/2024 1:48 PM SAP BPC DEVELOPER [facility] Protein Albumin Urine Negative Negative mg/dL 06/17/2024 1:48 PM SAP BPC DEVELOPER [facility] Urobilinogen Urine Normal Normal, 2.0 mg/dL 06/17/2024 1:48 PM SAP BPC DEVELOPER [facility] Nitrite Urine Negative Negative 06/17/2024 1:48 PM SAP BPC DEVELOPER [facility] Leukocyte Esterase Urine Small(A) Negative 06/17/2024 1:48 PM SAP BPC DEVELOPER [facility] RBC Urine <1 <=2 /HPF 06/17/2024 1:48 PM SAP BPC DEVELOPER [facility] WBC Urine <1 <=5 /HPF 06/17/2024 1:48 PM SAP BPC DEVELOPER [facility] Squamous Epithelials Urine 3(H) <=1 /HPF 06/17/2024 1:48 PM SAP BPC DEVELOPER [facility] Urine URINE SPECIMEN OBTAINED BY CLEAN CATCH PROCEDURE / Unknown Non-blood Collection / Unknown 06/17/2024 1:11 PM SAP BPC DEVELOPER 06/17/2024 1:38 PM SAP BPC DEVELOPER Narrative [facility] - 06/17/2024 1:48 PM SAP BPC DEVELOPER Urine Culture not indicated lR Elias MD LAB - URINE ORDER SYD Final Result [facility] [address] [facility], [address] [place] [phone] * Prepare red blood cells (unit) (06/17/2024 9:12 AM SAP BPC DEVELOPER) Blood Component Type Red Blood Cells [facility] BLOOD BANK Product Code [id number] UU BLOO D BANK Unit Status Transfused UU BLOO D BANK Unit Number [id number] UU B LOOD BANK CROSSMATCH COMPATIBLE [facility] BLOOD BANK CODING SYSTEM [id number] UU BLO OD BANK ISSUE DATE AND TIME [id number] UU BLOOD BANK UNIT ABO/RH A+ UU BLOOD BANK UNIT TYPE ISBT [id number] UU BL OOD BANK 06/17/2024 9:12 AM SAP BPC DEVELOPER us Drake Nina MD BLOOD BANK PRODUCT ORDERABLES Final Result BLOOD BANK [address] [place] [phone] * (ABNORMAL) Transferrin (06/17/2024 6:16 AM SAP BPC DEVELOPER) Transferrin 100.0(L) 200.0 - 360.0 mg/dL 06/17/2024 9:36 AM SAP BPC DEVELOPER [facility] Blood VENOUS LINE / Unknown IVAD (Port) / Unknown 06/17/2024 6:16 AM SAP BPC DEVELOPER 06/17/2024 6:27 AM SAP BPC DEVELOPER us Drake Nina MD LAB - BLOOD ORDERABLES Final Result [facility] [address] [facility], Room [address] [place], [place] [id number] * Iron and iron binding capacity (06/17/2024 6:16 AM SAP BPC DEVELOPER) Iron 123 37 - 145 ug/dL 06/17/2024 10:02 AM SAP BPC DEVELOPER [facility] Iron Binding Capacity 06/17/2024 10:02 AM SAP BPC DEVELOPER [facility] Comment:Unable to calculate: UIBC or Iron value is outside detectable level. Iron Sat Index 06/17/2024 10:02 AM SAP BPC DEVELOPER [facility] Comment:Unable to calculate: UIBC or Iron value is outside detectable level. Blood VENOUS LINE / Unknown IVAD (Port) / Unknown 06/17/2024 6:16 AM SAP BPC DEVELOPER 06/17/2024 6:27 AM SAP BPC DEVELOPER us Drake Nina MD LAB - BLOOD ORDERABLES Final Result [facility] [address] [facility], [address] [place] [address] * (ABNORMAL) CBC with platelets (06/17/2024 6:16 AM SAP BPC DEVELOPER) Pathologist [facility] WBC Count 14.6(H) 4.0 - 11.0 10e3/uL 06/17/2024 6:38 AM SAP BPC DEVELOPER [facility] RBC Count 1.97(L) 3.80 - 5.20 10e6/uL 06/17/2024 6:38 AM SAP BPC DEVELOPER [facility] Hemoglobin 6.3(LL) 11.7 - 15.7 g/dL 06/17/2024 6:38 AM SAP BPC DEVELOPER [facility] Hematocrit 17.9(L) 35.0 - 47.0 % 06/17/2024 6:38 AM SAP BPC DEVELOPER [facility] MCV 91 78 - 100 fL 06/17/2024 6:38 AM SAP BPC DEVELOPER [facility] MCH 32.0 26.5 - 33.0 pg 06/17/2024 6:38 AM SAP BPC DEVELOPER [facility] MCHC 35.2 31.5 - 36.5 g/dL 06/17/2024 6:38 AM SAP BPC DEVELOPER [facility] RDW 20.1(H) 10.0 - 15.0 % 06/17/2024 6:38 AM SAP BPC DEVELOPER [facility] Platelet Count 468(H) 150 - 450 10e3/uL 06/17/2024 6:38 AM SAP BPC DEVELOPER [facility] Blood VENOUS LINE / Unknown IVAD (Port) / Unknown 06/17/2024 6:16 AM SAP BPC DEVELOPER 06/17/2024 6:27 AM SAP BPC DEVELOPER us Laquita Kelley MD LAB - BLOOD ORDERABLES Final Re sult [facility] [address] [facility], Room [address] [place] [id number] * (ABNORMAL) Basic metabolic panel (06/17/2024 6:16 AM SAP BPC DEVELOPER) Pathologist [facility] Sodium 134(L) 135 - 145 mmol/L 06/17/2024 6:55 AM SAP BPC DEVELOPER [facility] Potassium 4.6 3.4 - 5.3 mmol/L 06/17/2024 6:55 AM SAP BPC DEVELOPER [facility] Chloride 105 98 - 107 mmol/L 06/17/2024 6:55 AM SAP BPC DEVELOPER [facility] Carbon Dioxide (CO2) 20(L) 22 - 29 mmol/L 06/17/2024 6:55 AM SAP BPC DEVELOPER [facility] Anion Gap 9 7 - 15 mmol/L 06/17/2024 6:55 AM SAP BPC DEVELOPER [facility] Urea Nitrogen 16.1 6.0 - 20.0 mg/dL 06/17/2024 6:55 AM SAP BPC DEVELOPER [facility] Creatinine 0.90 0.51 - 0.95 mg/dL 06/17/2024 6:55 AM SAP BPC DEVELOPER [facility] GFR Estimate 88 >60 mL/min/1.7 3m2 06/17/2024 6:55 AM SAP BPC DEVELOPER [facility] Comment:eGFR calculated usin 2020 CKD-EPI equation. Calcium 8.4(L) 8.8 - 10.4 mg/dL 06/17/2024 6:55 AM SAP BPC DEVELOPER [facility] Glucose 95 70 - 99 mg/dL 06/17/2024 6:55 AM SAP BPC DEVELOPER [facility] Blood VENOUS LINE / Unknown IVAD (Port) / Unknown 06/17/2024 6:16 AM SAP BPC DEVELOPER 06/17/2024 6:27 AM SAP BPC DEVELOPER us Laquita Kelley MD LAB - BLOOD ORDERABLES Final Re sult [facility] Core Lab [address] [facility], [address] [place] [address] * Troponin T, High Sensitivity (06/16/2024 9:33 PM SAP BPC DEVELOPER) Troponin T, High Sensitivity 8 <=14 ng/L 06/16/2024 10:13 PM SAP BPC DEVELOPER [facility] Comment: Either a High Sensitivity [...] IVAD (Port) / Unknown 06/16/2024 9:33 PM SAP BPC DEVELOPER 06/16/2024 9:44 PM SAP BPC DEVELOPER us Varghesegiulia Schofield MD LAB - BLOOD ORDERABLE S Final Result LABORATORY [facility] Core Lab [address] [facility], [address] [address] * Chest XR, PA & LAT (06/16/2024 6:09 PM SAP BPC DEVELOPER) Anatomical Region Laterality Modality Chest Digital Radiogra phy 06/16/2024 6:09 PM SAP BPC DEVELOPER Impressions 06/16/2024 6:13 PM SAP BPC DEVELOPER IMPRESSION: Left chest port catheter in stable position. Stable position of right central venous catheter. No airspace opacity, pleural effusion or pneumothorax. Narrative 06/16/2024 6:13 PM SAP BPC DEVELOPER EXAM: XR CHEST 2 VIEWS LOCATION: [facility] DATE: 06/16/2024 INDICATION: chest pain COMPARISON: 06/12/2024 Procedure Note Richar Haines MD - 06/16/2024 EXAM: XR CHEST 2 VIEWS LOCATION: [facility] DATE: 06/16/2024 INDICATION: chest pain COMPARISON: 06/12/2024 IMPRESSION: Left chest port catheter in stable position. Stable positionof right central venous catheter. No airspace opacity, pleural effusion orpneumothorax. us Abimael Schofield MD IMG DIAGNOSTIC IMAGIN G ORDERABLES Final Result * RBC and Platelet Morphology (06/16/2024 5:37 PM SAP BPC DEVELOPER) Pathologist [facility] RBC Morphology Confirmed RBC Indices 06/16/2024 7:40 PM SAP BPC DEVELOPER [facility] Platelet Assessment Automated Count Confirmed. Platelet morphology is normal. Automated Count Confirmed. Platelet morphology is normal. 06/16/2024 7:40 PM SAP BPC DEVELOPER [facility] Blood BLOOD SPECIMEN / Unknown Venipuncture / Unknown 06/16/2024 5:37 PM SAP BPC DEVELOPER 06/16/2024 5:46 PM SAP BPC DEVELOPER [facility] [place] Schofield MD LAB - BLOOD ORDERABLE S Final Result [facility] Core Lab [address] [facility], [address] [place] [address], [facility] * Adult Type and Screen (06/16/2024 5:37 PM SAP BPC DEVELOPER) [facility] ABO/RH(D) A POS 06/16/2024 5:08 PM SAP BPC DEVELOPER BLOOD BANK Antibody Screen Negative Negative 06/16/2024 5:08 PM SAP BPC DEVELOPER BLOOD BANK Comment:Current antibody scr een is negative. Patient has a history of antibody(ies). A delay in compatible red blood cells may occur. SPECIMEN EXPIRATION DATE [id number] 06/16/2024 5:08 PM SAP BPC DEVELOPER BLOOD BANK Blood BLOOD SPECIMEN / Unknown Venipuncture / Unknown 06/16/2024 5:37 PM SAP BPC DEVELOPER 06/16/2024 5:46 PM SAP BPC DEVELOPER Abimael Schofield MD LAB - BLOOD BANK TEST ORDER Final Result [facility] B[facility] B[facility] [address] [place] [address] * (ABNORMAL) CBC with platelets and differential (06/16/2024 5:37 PM SAP BPC DEVELOPER) [facility] WBC Count 21.0(H) 4.0 - 11.0 10e3/uL 06/16/2024 7:41 PM SAP BPC DEVELOPER [facility] RBC Count 2.34(L) 3.80 - 5.20 10e6/uL 06/16/2024 7:41 PM SAP BPC DEVELOPER [facility] Hemoglobin 7.4(L) 11.7 - 15.7 g/dL 06/16/2024 7:41 PM SAP BPC DEVELOPER [facility] Hematocrit 21.7(L) 35.0 - 47.0 % 06/16/2024 7:41 PM SAP BPC DEVELOPER [facility] MCV 93 78 - 100 fL 06/16/2024 7:41 PM SAP BPC DEVELOPER [facility] MCH 31.6 26.5 - 33.0 pg 06/16/2024 7:41 PM SAP BPC DEVELOPER [facility] MCHC 34.1 31.5 - 36.5 g/dL 06/16/2024 7:41 PM SAP BPC DEVELOPER [facility] RDW 19.3(H) 10.0 - 15.0 % 06/16/2024 7:41 PM SAP BPC DEVELOPER [facility] Platelet Count 551(H) 150 - 450 10e3/uL 06/16/2024 7:41 PM SAP BPC DEVELOPER [facility] % Neutrophils 69 % 06/16/2024 7:41 PM SAP BPC DEVELOPER [facility] % Lymphocytes 20 % 06/16/2024 7:41 PM SAP BPC DEVELOPER [facility] % Monocytes 9 % 06/16/2024 7:41 PM SAP BPC DEVELOPER [facility] % Eosinophils 0 % 06/16/2024 7:41 PM SAP BPC DEVELOPER [facility] % Basophils 1 % 06/16/2024 7:41 PM SAP BPC DEVELOPER [facility] % Immature Granulocytes 1 % 06/16/2024 7:41 PM SAP BPC DEVELOPER [facility] NRBCs per 100 WBC 1(H) <1 /100 025 7:41 PM SAP BPC DEVELOPER [facility] Absolute Neutrophils 14.5(H) 1.6 - 8.3 10e3/uL 06/16/2024 7:41 PM SAP BPC DEVELOPER [facility] Absolute Lymphocytes 4.2 0.8 - 5.3 10e3/uL 06/16/2024 7:41 PM SAP BPC DEVELOPER [facility] Absolute Monocytes 2.0(H) 0.0 - 1.3 10e3/uL 06/16/2024 7:41 PM SAP BPC DEVELOPER [facility] Absolute Eosinophils 0.0 0.0 - 0.7 10e3/uL 06/16/2024 7:41 PM SAP BPC DEVELOPER [facility] Absolute Basophils 0.2 0.0 - 0.2 10e3/uL 06/16/2024 7:41 PM SAP BPC DEVELOPER [facility] Absolute Immature Granulocytes 0.1 <=0.4 10e3/uL 06/16/2024 7:41 PM SAP BPC DEVELOPER [facility] Absolute NRBCs 0.3 10e3/uL 06/16/2024 7:41 PM SAP BPC DEVELOPER [facility] Blood BLOOD SPECIMEN / Unknown Venipuncture / Unknown 06/16/2024 5:37 PM SAP BPC DEVELOPER 06/16/2024 5:46 PM SAP BPC DEVELOPER us Varghesegiulia Schofield MD LAB - BLOOD ORDERABLE S Final Result [facility] Lab [address] [facility], [address] * (ABNORMAL) Prolactin (06/16/2024 5:37 PM SAP BPC DEVELOPER) Prolactin 55(H) 5 - 23 ng/mL 06/16/2024 6:24 PM SAP BPC DEVELOPER [facility] Blood BLOOD SPECIMEN / Unknown Venipuncture / Unknown 06/16/2024 5:37 PM SAP BPC DEVELOPER 06/16/2024 5:46 PM SAP BPC DEVELOPER us Varghesegiulia Schofield MD LAB - BLOOD ORDERABLE S Final Result Performing Organization Address City/[facility]/ZIP Co de Phone Number [facility] Core Lab [address] [facility], [address] * Blood Culture Peripheral Blood (06/16/2024 5:37 PM SAP BPC DEVELOPER) Culture No Growth 06/21/2024 6:47 PM SAP BPC DEVELOPER [facility] Blood BLOOD SPECIMEN / Unknown Venipuncture / Unknown 06/16/2024 5:37 PM SAP BPC DEVELOPER 06/16/2024 5:47 PM SAP BPC DEVELOPER us Abimael Schofield MD LAB - MICRO GENERAL O RDERABLES Final Result [facility] Inf. Diseases Diag. Lab [address] [facility], [address] [place] [address] * Troponin T, High Sensitivity (06/16/2024 5:37 PM SAP BPC DEVELOPER) [facility] Troponin T, High Sensitivity 6 <=14 ng/L 06/16/2024 6:24 PM SAP BPC DEVELOPER [facility] Comment: Either a High Sensitivity [...] Unknown Venipuncture / Unknown 06/16/2024 5:37 PM SAP BPC DEVELOPER 06/16/2024 5:46 PM SAP BPC DEVELOPER us Varghesegiulia Schofield MD LAB - BLOOD ORDERABLE S Final Result [facility] Lab [address] [facility], [address] [place] [address] * (ABNORMAL) Comprehensive metabolic panel (06/16/2024 5:37 PM SAP BPC DEVELOPER) [facility] Sodium 135 135 - 145 mmol/L 06/16/2024 6:24 PM SAP BPC DEVELOPER [facility] Potassium 4.2 3.4 - 5.3 mmol/L 06/16/2024 6:24 PM SAP BPC DEVELOPER [facility] Carbon Dioxide (CO2) 18(L) 22 - 29 mmol/L 06/16/2024 6:24 PM SAP BPC DEVELOPER [facility] Anion Gap 14 7 - 15 mmol/L 06/16/2024 6:24 PM SAP BPC DEVELOPER [facility] Urea Nitrogen 17.3 6.0 - 20.0 mg/dL 06/16/2024 6:24 PM SAP BPC DEVELOPER [facility] Creatinine 0.92 0.51 - 0.95 mg/dL 06/16/2024 6:24 PM SAP BPC DEVELOPER [facility] GFR Estimate 85 >60 mL/min/1.7 3m2 06/16/2024 6:24 PM SAP BPC DEVELOPER [facility] Comment:eGFR calculated us2020 CKD-EPI equation. Calcium 9.5 8.8 - 10.4 mg/dL 06/16/2024 6:24 PM SAP BPC DEVELOPER [facility] Chloride 103 98 - 107 mmol/L 06/16/2024 6:24 PM SAP BPC DEVELOPER [facility] Glucose 122(H) 70 - 99 mg/dL 06/16/2024 6:24 PM SAP BPC DEVELOPER [facility] Alkaline Phosphatase 105 40 - 150 U/L 06/16/2024 6:24 PM SAP BPC DEVELOPER [facility] AST 49(H) 0 - 45 U/L 06/16/2024 6:24 PM SAP BPC DEVELOPER [facility] ALT 32 0 - 50 U/L 06/16/2024 6:24 PM SAP BPC DEVELOPER [facility] Protein Total 8.6(H) 6.4 - 8.3 g/dL 06/16/2024 6:24 PM SAP BPC DEVELOPER [facility] Albumin 4.6 3.5 - 5.2 g/dL 06/16/2024 6:24 PM SAP BPC DEVELOPER [facility] Bilirubin Total 2.0(H) <=1.2 mg/dL 06/16/2024 6:24 PM SAP BPC DEVELOPER [facility] Blood BLOOD SPECIMEN / Unknown Venipuncture / Unknown 06/16/2024 5:37 PM SAP BPC DEVELOPER 06/16/2024 5:46 PM SAP BPC DEVELOPER us Varghesegiulia Schofield MD LAB - BLOOD ORDERABLE S Final Result [facility] Core Lab [address] [facility], [address] [place] [address] * EKG 12 lead (06/16/2024 4:55 PM SAP BPC DEVELOPER) Systolic Blood Pressure mmHg RADIOLOGY RESULTS Diastolic Blood Pressure mmHg RADIOLOGY RESULTS Ventricular Rate 122 BPM RAD IOLOGY RESULTS Atrial Rate 122 BPM RADIOLOG Y RESULTS WA Interval 128 ms RADIOLOG Y RESULTS QRS Duration 74 ms RADIOLO GY RESULTS QT 314 ms RADIOLOGY RESULTS QTc 447 ms RADIOLOGY RESULTS P [place] 63 degrees RADIOLOGY RESULTS R AXIS 83 degrees RADIOLOGY RESULTS T [place] 29 degrees RADIOLOGY RESULTS Interpretation ECG Sinus tachycardia Otherwise normal ECG Unconfirmed report - interpretation of this ECG is computer generated - see medical record for final interpretation Confirmed by - EMERGENCY ROOM, PHYSICIAN ([id number]), proposal editor KARLA WILLIAMSON ([id number]) on 06/17/2024 6:56:59 AM RADIOLOGY RESULTS 06/16/2024 4:55 PM SAP BPC DEVELOPER 06/17/2024 6:56 AM SAP BPC DEVELOPER us Varghesegiulia Schofield MD ECG ORDERABLES Edite [...] days, Indications: pneumoniaIndications:pneumonia $Given 06/18/2024 8:40 PM SAP BPC DEVELOPER 200 mg $Given 06/18/2024 12:05 PM SAP BPC DEVELOPER 200 mg $Given 06/17/2024 9:25 PM SAP BPC DEVELOPER 200 mg diclofenac (VOLTAREN) 1 % topical gel 2 g 2 g, Topical, 4 TIMES DAILY, First dose on 06/17/24 at 1400, Apply to areas of pain. Use supplied dosing card to measure dose. diphenhydrAMINE (BENADRYL) capsule 25 mg 25 mg, Oral, EVERY 6 HOURS PRN, itching, Starting on Wed06/16/24 at 6 $Given 06/19/2024 12:46 PM SAP BPC DEVELOPER 25 mg diphenhydrAMINE (BENADRYL) injection 25 mg 25 mg, Intravenous, EVERY 6 HOURS PRN, itching, Starting on Wed06/16/24 at 6 $Given 06/20/2024 8:36 AM SAP BPC DEVELOPER 25 mg $Given 06/20/2024 2:08 AM SAP BPC DEVELOPER 25 mg $Given 06/19/2024 8:21 PM SAP BPC DEVELOPER 25 mg enoxaparin ANTICOAGULANT (LOVENOX) injection 40 mg 40 mg, Subcutaneous, EVERY 24 HOURS, First dose on Wed06/16/24 at 2100, Contact provider if platelet count drops by 50% or more after enoxaparin initiation OR if platelet count falls below 50 x 10e3/uL $Given 06/19/2024 8:29 PM SAP BPC DEVELOPER 40 mg $Given 06/18/2024 8:01 PM SAP BPC DEVELOPER 40 mg $Given 06/17/2024 9:32 PM SAP BPC DEVELOPER 40 mg FLUoxetine (PROzac) capsule 10 mg 10 mg, Oral, DAILY, First dose on Wed06/17/24 at 0800 $Given 06/20/2024 7:54 AM SAP BPC DEVELOPER 10 mg $Given 06/19/2024 8:54 AM SAP BPC DEVELOPER 10 mg $Given 06/18/2024 9:54 AM SAP BPC DEVELOPER 10 mg folic acid (FOLVITE) tablet 1 mg 1 mg, Oral, DAILY, First dose on Wed06/17/24 at 0800 $Given 06/20/2024 7:51 AM SAP BPC DEVELOPER 1 mg $Given 06/19/2024 8:54 AM SAP BPC DEVELOPER 1 mg $Given 06/18/2024 8:09 AM SAP BPC DEVELOPER 1 mg heparin lock flush 10 unit/mL [...] each port lumen $Given 06/20/2024 10:55 AM SAP BPC DEVELOPER 5 mLs hydromorphone (DILAUDID) injection 2 mg 2 mg, Intravenous, EVERY 1 HOUR PRN, moderate pain, Starting on Wed06/16/24 at 1708, For 3 doses $Given 06/16/2024 8:20 PM SAP BPC DEVELOPER 2 mg $Given 06/16/2024 5:42 PM SAP BPC DEVELOPER 2 mg hydromorphone (DILAUDID) injection 2 mg 2 mg, Intravenous, EVERY 3 HOURS, First dose on Wed06/16/24 at 2100, May use concomitant with non-opioid analgesics. $Given 06/16/2024 9:59 PM SAP BPC DEVELOPER 2 mg hydromorphone (DILAUDID) injection 2 mg 2 mg, Intravenous, EVERY 2 HOURS, First dose (after last modification) on 06/17/24 at 0000, May use concomitant with non-opioid analgesics. $Given 06/20/2024 9:53 AM SAP BPC DEVELOPER 2 mg $Given 06/20/2024 7:49 AM SAP BPC DEVELOPER 2 mg $Given 06/20/2024 5:51 AM SAP BPC DEVELOPER 2 mg hydroxyurea (HYDREA) capsule 1,000 mg 1,000 mg, Oral, 2 TIMES DAILY, First dose on Wed06/16/24 at 2100, Indications: Sickle cell anemia, Do not crush May require hepatic and/or renal dose or frequency adjustments. See reference link for guidelines.Indications:Sickle cell anemia $Given 06/20/2024 7:51 AM SAP BPC DEVELOPER 1,000 mg $Given 06/19/2024 8:13 PM SAP BPC DEVELOPER 1,000 mg $Given 06/19/2024 8:55 AM SAP BPC DEVELOPER 1,000 mg lactated ringers infusion at 75 mL/hr, Intravenous, CONTINUOUS, Starting on Wed06/18/24 at 0845, Until Wed06/20/24 at 0815 Rate/Dose Verify 06/20/2024 8:00 AM SAP BPC DEVELOPER 75 mL/hr $New Bag 06/19/2024 10:38 PM SAP BPC DEVELOPER 75 mL/hr Rate/Dose Verify 06/19/2024 8:29 PM SAP BPC DEVELOPER 75 mL/h r Lidocaine (LIDOCARE) 4 % [...] 06/16/24 at 1958 $Given 06/20/2024 2:08 AM SAP BPC DEVELOPER 4 mg $Given 06/19/2024 8:15 PM SAP BPC DEVELOPER 4 mg $Given 06/19/2024 12:46 PM SAP BPC DEVELOPER 4 mg polyethylene glycol (MIRALAX) Packet 17 [...] each port lumen. $Given 06/20/2024 10:54 AM SAP BPC DEVELOPER 10 mLs sodium chloride (PF) 0.9% PF flush 3 mL 3 mL, Intracatheter, EVERY 8 HOURS, First dose on Wed06/16/24 at 1710, to lock peripheral IV dormant line $Given 06/20/2024 12:24 AM SAP BPC DEVELOPER 3 mLs $Given 06/18/2024 6:22 PM SAP BPC DEVELOPER 3 mLs $Given 06/17/2024 7:34 AM SAP BPC DEVELOPER 3 mLs sodium chloride (PF) 0.9% PF flush 3 mL 3 mL, Intracatheter, EVERY 1 MIN PRN, line flush, other, to ensure patency or to lock dormant line, Starting on Wed06/16/24 at 1706 sodium chloride (PF) 0.9% PF flush 3 mL 3 mL, Intracatheter, EVERY 8 HOURS, First dose on Wed06/16/24 at 2100, to lock peripheral IV dormant line $Given 06/20/2024 4:41 AM SAP BPC DEVELOPER 3 mLs $Given 06/19/2024 12:56 PM SAP BPC DEVELOPER 3 mLs $Given 06/18/2024 12:07 PM SAP BPC DEVELOPER 3 mLs sodium chloride (PF) 0.9% PF flush 3 mL 3 mL, Intracatheter, EVERY 1 MIN PRN, line flush, other, to ensure patency or to lock dormant line, Starting on Wed06/16/24 at 2058 $Given 06/20/2024 5:5 2 AM SAP BPC DEVELOPER 3 mLs $Given 06/20/2024 2:59 AM SAP BPC DEVELOPER 3 mLs $Given 06/20/2024 2:07 AM SAP BPC DEVELOPER 3 mLs sodium chloride 0.9 % infusion at 75 mL/hr, Intravenous, CONTINUOUS, Starting on Wed06/16/24 at 1710, Until 06/18/24 at 0843 Rate/Dose Verify 06/18/2024 8:07 AM SAP BPC DEVELOPER 75 mL/hr $New Bag 06/17/2024 9:42 PM SAP BPC DEVELOPER 75 mL/hr $New Bag 06/17/2024 4:05 PM SAP BPC DEVELOPER 75 mL/hr sodium chloride 0.9% BOLUS 500 mL Intravenous, 500 mL, ONCE, at 500 mL/hr, Administer over 1 Hours, On Wed06/16/24 at 1710, For 1 dose $New Bag 06/16/2024 5:51 PM SAP BPC DEVELOPER 500 mLs 500 mL/hr documented in this encounter Active and Recently Administered Medications Times are shown in SAP BPC DEVELOPER. 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 documented in this encounter Care Teams Correctional Corporal Relationship Specialty Start Date End Date No Ref-Primary, Physician PCP - General 03/15/24 06/17/24 Veronica Joseph MD [address] [place] [address] PCP - General Family Medicine 06/18/24 Mor Ramsey Medical Student 04/03/24 Case Samuel MD [address] [place] [address] [address] [place] [address] Assigned Pediatric Specialist Provider 05/18/24 Juhi Benson, RN Specialty Computer Operations Technician Hematology & Oncology 05/29/24 documented as of this encounter
--- OUTSIDE RECORDS SUMMARY | 2024-06-24 20:56 | XMS_ITS | Encounter Summary ---
Author Organization [facility] Address [address] [place] [address] Care Team Providers Care Filing Writer Name Role Phone No Ref-Primary, Physician Primary Care Provider Mor Ramsey Unavailable Unavailable Case Samuel MD Unavailable [phone] Juhi Benson RN Unavailable Unavailable Reason for Visit * Reason Onset Date Comments Refill Request 06/15/2024 Encounter Details Date Type Department Care Team (Late st Contact Info) Description 06/15/[address] [place] [address] Case Samuel MD [address] [place] [address] [address], [address] [place], [place] [phone] Refill Request Social History Tobacco Use Types [...] on file Legal Sex Female 8:25 AM BATCH DUMPER Gender Identity Not on file Sexual Orientation [...] by whom: Dr. Case Samuel on 06/07/24 PCAT INSTRUCTOR Reviewed: no access Send to provider: Dr. Samuel and SOFIA ReynagaCC. H DUMPER documented in this encounter Plan of Treatment Not on file documented as of this encounter Goals Goal Patient Goal Type Associated Problems Recent Progress Patient-Stated? Author Pain Management General On track( 025 12:40 PM BATCH DUMPER) Yes Juhi Benson, RN Note: Goal Statement: [...] crisis documented in this encounter Care Teams Filing Writer Relationship Specialty Start Date End Date No Ref-Primary, Physician PCP - General 03/15/24 06/17/24 Mor Ramsey Medical Student 04/03/24 Case Samuel MD [address] [place] [address] [address], [address] [place] [address] Assigned Pediatric Specialist Provider 05/18/24 Juhi Benson, RN Specialty Production Team Advisor Hematology & Oncology 05/29/24 documented as of this encounter
--- OUTSIDE RECORDS SUMMARY | 2024-06-24 20:56 | XMS_ITS | Encounter Summary ---
Author Organization [facility] Address [address] [place] [address] Care Team Providers Care Marksmanship Instructor Name Role Phone Roxy Mor Unavailable Unavailable Case Samuel MD Unavailable [phone] Juhi Benson RN Unavailable Unavailable Veronica Joseph MD Primary Care Provider [phone] Reason for Visit * Reason Comments Sickle Cell Pain Crisis Encounter Details Date Type Department Care Team (Late st Contact Info) Description 06/22/2024 5:23 PM ARMORED TRUCK DRIVER - 06/22/2024 10:02 PM ARMORED TRUCK DRIVER Emergency [facility] Emergency Department [address] [place] [id number] Lynne Varner MD [address] [place] [id number] Sickle cell anemia with crisis (H) Discharge [...] in an overnight chcf, or couch-surfing.) Yes 06/20/2024 Are you worried [...] on file Legal Sex Female 8:25 AM ARMORED TRUCK DRIVER Gender Identity Not on file Sexual Orientation Not on file documented as of this encounter Last Filed Vital Signs Vital Sign Reading Time Taken Comments Blood Pressure 104/73 06/22/2024 5:03 PM ARMORED TRUCK DRIVER Pulse 100 06/22/2024 5:03 PM ARMORED TRUCK DRIVER Temperature 36.8 C (98.2 F) 06/22/2024 5:03 PM ARMORED TRUCK DRIVER Respiratory Rate 16 06/22/2024 5:03 PM ARMORED TRUCK DRIVER Oxygen Saturation 99% 06/22/2024 5:03 PM ARMORED TRUCK DRIVER Inhaled Oxygen Concentration - - Weight 52.2 kg (115 lb) 06/22/2024 5:03 PM ARMORED TRUCK DRIVER Height 154.9 cm (5' 1) 06/22/2024 5:03 PM ARMORED TRUCK DRIVER Body Mass Index 21.73 06/22/2024 5:03 PM ARMORED TRUCK DRIVER documented in this encounter Discharge Instructions * Discharge Instructions* Lynne Varner MD - 06/22/2024 5:43 PM ARMORED TRUCK DRIVER TODAY'S VISIT: You were seen today for [...] new or worsening symptoms or any concerns. RED TRUCK DRIVER * Attachments The following attachments cannot be sent through Care Everywhere. * Sickle Cell Crisis (Gabonese) documented in this encounter Medications at Time [...] 05/01/2024 naloxone (NARCAN) 4 MG/0.1ML nasal spray Cruger 1 spray (4 mg) into one nostril alternating nostrils as needed for opioid reversal (for opiate overdose if not breathing and unconscious. have your family member watch video on how to use/read information sheet). every 2-3 minutes until assistance arrives 2 each 06/06/2024 documented as of this encounter ED Notes * Lnyne Varner MD - 06/22/2024 5:33 PM CST [...] Surgical History, and Social History in the [facility]. 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 Functional asplenia Gallstones Hb-SS disease [...] 11 naloxone (NARCAN) 4 MG/0.1ML nasal spray Cruger 1 spray (4 mg) into one nostril [...] Concern Not on file Social History Narrative [id number] mom. Recently moved to [place] from [place], [place]. She is 1 of 9 [...] Socially Integrated (03/28/2024) [facility] [employer] [facility]ctions Do you often feel [...] Status --------- ------ CBC with platelets and d...[[id number]] Abnormal Final result RBC and Platelet Morphology[[id number]] Please view results for these tests on [...] with crisis (H) LYNNE VARNER MD 06/22/2024 [facility] EMERGENCY DEPARTMENT Lynne Varner MD 06/22/24 [id number] RED TRUCK DRIVER * Milagros Lofton RN - 06/22/2024 5:06 PM CST Pt is here for sickle cell crisis. Pain in her back and both legs. PT took her home dilaudid oral at 2 pm. Pt coming in for her pain. Denies any symptoms. Triage Assessment (Adult) Row Name 06/22/24 2207 Triage Assessment Airway WDL WDL Respiratory WDL Respiratory WDL WDL Skin Circulation/Temperature WDL Skin Circulation/Temperature WDL WDL Cardiac WDL Cardiac WDL WDL Cardiac Rhythm Other (Comment) Peripheral/Neurovascular WDL Peripheral Neurovascular WDL WDL Cognitive/Neuro/Behavioral WDL Cognitive/Neuro/Behavioral WDL WDL RED TRUCK DRIVER documented in this encounter Plan of Treatment Not on file documented as of this encounter Goals Goal Patient Goal Type Associated Problems Recent Progress Patient-Stated? Author Pain Management General On track( 025 12:40 PM ARMORED TRUCK DRIVER) Yes Juhi Benson, RN Note: Goal [...] PLATELETS AND DIFFERENTIAL STAT 06/22/2024 7:10 PM ARMORED TRUCK DRIVER CBC WITH PLATELETS & DIFFERENTIAL STAT 06/22/2024 7:10 PM ARMORED TRUCK DRIVER RETICULOCYTE COUNT STAT 06/22/2024 7: 10 PM ARMORED TRUCK DRIVER HCG QUALITATIVE STAT 06/22/2024 7:10 PM ARMORED TRUCK DRIVER COMPREHENSIVE METABOLIC PANEL STAT 06/22/2024 7:10 PM ARMORED TRUCK DRIVER documented in this encounter Results * (ABNORMAL) CBC with platelets and differential (06/22/2024 7:10 PM ARMORED TRUCK DRIVER) Pathologist [facility] WBC Count 13.7(H) 4.0 - 11.0 10e3/uL 06/22/2024 7:47 PM ARMORED TRUCK DRIVER [facility] RBC Count 2.48(L) 3.80 - 5.20 10e6/uL 06/22/2024 7:47 PM ARMORED TRUCK DRIVER [facility] Hemoglobin 8.2(L) 11.7 - 15.7 g/dL 06/22/2024 7:47 PM ARMORED TRUCK DRIVER [facility] Hematocrit 23.3(L) 35.0 - 47.0 % 06/22/2024 7:47 PM ARMORED TRUCK DRIVER [facility] MCV 94 78 - 100 fL 06/22/2024 7:47 PM ARMORED TRUCK DRIVER [facility] MCH 33.1(H) 26.5 - 33.0 pg 06/22/2024 7:47 PM ARMORED TRUCK DRIVER [facility] MCHC 35.2 31.5 - 36.5 g/dL 06/22/2024 7:47 PM ARMORED TRUCK DRIVER [facility] RDW 18.6(H) 10.0 - 15.0 % 06/22/2024 7:47 PM ARMORED TRUCK DRIVER [facility] Platelet Count 470(H) 150 - 450 10e3/uL 06/22/2024 7:47 PM ARMORED TRUCK DRIVER [facility] % Neutrophils 78 % 06/22/2024 7:47 PM ARMORED TRUCK DRIVER [facility] % Lymphocytes 16 % 06/22/2024 7:47 PM ARMORED TRUCK DRIVER [facility] % Monocytes 4 % 06/22/2024 7:47 PM ARMORED TRUCK DRIVER [facility] % Eosinophils 1 % 06/22/2024 7:47 PM ARMORED TRUCK DRIVER [facility] % Basophils 1 % 06/22/2024 7:47 PM ARMORED TRUCK DRIVER [facility] % Immature Granulocytes 1 % 06/22/2024 7:47 PM ARMORED TRUCK DRIVER [facility] NRBCs per 100 WBC 3(H) <1 /100 025 7:47 PM ARMORED TRUCK DRIVER [facility] Absolute Neutrophils 10.6(H) 1.6 - 8.3 10e3/uL 06/22/2024 7:47 PM ARMORED TRUCK DRIVER [facility] Absolute Lymphocytes 2.3 0.8 - 5.3 10e3/uL 06/22/2024 7:47 PM ARMORED TRUCK DRIVER [facility] Absolute Monocytes 0.5 0.0 - 1.3 10e3/uL 06/22/2024 7:47 PM ARMORED TRUCK DRIVER [facility] Absolute Eosinophils 0.1 0.0 - 0.7 10e3/uL 06/22/2024 7:47 PM ARMORED TRUCK DRIVER [facility] Absolute Basophils 0.1 0.0 - 0.2 10e3/uL 06/22/2024 7:47 PM ARMORED TRUCK DRIVER [facility] Absolute Immature Granulocytes 0.1 <=0.4 10e3/uL 06/22/2024 7:47 PM ARMORED TRUCK DRIVER [facility] Absolute NRBCs 0.4 10e3/uL 06/22/2024 7:47 PM ARMORED TRUCK DRIVER [facility] Blood VENOUS LINE / Unknown Venipuncture / Unknown 06/22/2024 7:10 PM ARMORED TRUCK DRIVER 06/22/2024 7:16 PM ARMORED TRUCK DRIVER Lynne Varner MD LAB - BLOOD ORDERABLES Fin al Result [facility] [address] [facility], [address] [address] [place] [address] * (ABNORMAL) Reticulocyte count (06/22/2024 7:10 PM ARMORED TRUCK DRIVER) % Reticulocyte 5.3(H) 0.5 - 2.0 % 06/22/2024 7:23 PM ARMORED TRUCK DRIVER [facility] Absolute Reticulocyte 0.130(H) 0.025 - 0.095 10e6/uL 06/22/2024 7:23 PM ARMORED TRUCK DRIVER [facility] Blood VENOUS LINE / Unknown Venipuncture / Unknown 06/22/2024 7:10 PM ARMORED TRUCK DRIVER 06/22/2024 7:16 PM ARMORED TRUCK DRIVER Lynne Varner MD LAB - BLOOD ORDERABLES Fin al Result Performing Organization Address [facility] Co de Phone Number [facility] [address] [facility], [address] * HCG qualitative Blood (06/22/2024 7:10 PM ARMORED TRUCK DRIVER) Pathologist [facility] hCG Serum Qualitative Negative Negative JARET 06/22/2024 7:45 PM ARMORED TRUCK DRIVER [facility] Comment:This test is for scr eening purposes. Results should be interpreted along with the clinical picture. Confirmation testing is available if warranted by ordering [id number], HCG Quantitative . Blood VENOUS LINE / Unknown Venipuncture / Unknown 06/22/2024 7:10 PM ARMORED TRUCK DRIVER 06/22/2024 7:26 PM ARMORED TRUCK DRIVER Lynne Varner MD LAB - BLOOD ORDERABLES Fin al Result [facility] [address] [facility], [address] [place] [address], [facility] * (ABNORMAL) Comprehensive metabolic panel (06/22/2024 7:10 PM ARMORED TRUCK DRIVER) Sodium 137 135 - 145 mmol/L 06/22/2024 8:00 PM ARMORED TRUCK DRIVER [facility] Potassium 4.5 3.4 - 5.3 mmol/L 06/22/2024 8:00 PM ARMORED TRUCK DRIVER [facility] Carbon Dioxide (CO2) 21(L) 22 - 29 mmol/L 06/22/2024 8:00 PM ARMORED TRUCK DRIVER [facility] Anion Gap 8 7 - 15 mmol/L 06/22/2024 8:00 PM ARMORED TRUCK DRIVER [facility] Urea Nitrogen 12.1 6.0 - 20.0 mg/dL 06/22/2024 8:00 PM ARMORED TRUCK DRIVER [facility] Creatinine 0.71 0.51 - 0.95 mg/dL 06/22/2024 8:00 PM ARMORED TRUCK DRIVER [facility] GFR Estimate >90 >60 mL/min/1.7 3m2 06/22/2024 8:00 PM ARMORED TRUCK DRIVER [facility] Comment:eGFR calculated us2020 CKD-EPI equation. Calcium 9.5 8.8 - 10.4 mg/dL 06/22/2024 8:00 PM ARMORED TRUCK DRIVER [facility] Chloride 108(H) 98 - 107 mmol/L 06/22/2024 8:00 PM ARMORED TRUCK DRIVER [facility] Glucose 100(H) 70 - 99 mg/dL 06/22/2024 8:00 PM ARMORED TRUCK DRIVER [facility] Alkaline Phosphatase 119 40 - 150 U/L 06/22/2024 8:00 PM ARMORED TRUCK DRIVER [facility] AST 62(H) 0 - 45 U/L 06/22/2024 8:00 PM ARMORED TRUCK DRIVER [facility] ALT 54(H) 0 - 50 U/L 06/22/2024 8:00 PM ARMORED TRUCK DRIVER [facility] Protein Total 7.8 6.4 - 8.3 g/dL 06/22/2024 8:00 PM ARMORED TRUCK DRIVER [facility] Albumin 4.1 3.5 - 5.2 g/dL 06/22/2024 8:00 PM ARMORED TRUCK DRIVER [facility] Bilirubin Total 1.4(H) <=1.2 mg/dL 06/22/2024 8:00 PM ARMORED TRUCK DRIVER [facility] Blood VENOUS LINE / Unknown Venipuncture / Unknown 06/22/2024 7:10 PM ARMORED TRUCK DRIVER 06/22/2024 7:16 PM ARMORED TRUCK DRIVER us Lynne Varner MD LAB - BLOOD ORDERABLES Fin al Result [facility] [address] [facility], [address] [place] [address] documented in this encounter [...] For 1 dose $Given 06/22/2024 7:19 PM ARMORED TRUCK DRIVER 25 mg heparin lock flush 100 unit/mL injection 100 Units 100 Units, Intravenous, ONCE, On Citlali 06/22/24 at 2150, For 1 dose $Given 06/22/2024 9:53 PM ARMORED TRUCK DRIVER 100 Units hydromorphone (DILAUDID) injection 2 mg 2 mg, Intravenous, EVERY 1 HOUR PRN, severe pain, Starting on Citlali 06/22/24 at 1735, For 3 doses $Given 06/22/2024 9:33 PM ARMORED TRUCK DRIVER 2 mg $Given 06/22/2024 8:34 PM ARMORED TRUCK DRIVER 2 mg $Given 06/22/2024 7:20 PM ARMORED TRUCK DRIVER 2 mg lactated ringers BOLUS 1,000 mL Intravenous, 1,000 mL, ONCE, at 1,000 mL/hr, Administer over 1 Hours, On Citlali 06/22/24 at 1740, For 1 dose $New Bag 06/22/2024 7:19 PM ARMORED TRUCK DRIVER 1,000 mLs 1000 mL/hr ondansetron (ZOFRAN) injection 4 mg 4 mg, Intravenous, EVERY 30 MIN PRN, nausea, vomiting, Administer over 2-5 Minutes, Starting on Citlali 06/22/24 at 1735, For 3 doses, May repeat in 30 minutes as needed, up to 3 doses. $Given 06/22/2024 7:19 PM ARMORED TRUCK DRIVER 4 mg documented in this encounter Active and Recently Administered Medications Times are shown in ARMORED TRUCK DRIVER. Scheduled Medication Order 06/20/2024 06/21/2024 06/22/2024 diphenhydrAMINE [...] RN) documented in this encounter Care Teams Marksmanship Instructor Relationship Specialty Start Date End Date Veronica Joseph MD [address] [place] [address] PCP - General Family Medicine 06/18/24 Mor Ramsey Medical Student 04/03/24 Case Samuel MD [address] [place] [address], [address] [place] [address] Assigned Pediatric Specialist Provider 05/18/24 Juhi Benson, RN Specialty Service Order Expediter Hematology & Oncology 05/29/24 documented as of this encounter
--- OUTSIDE RECORDS SUMMARY | 2024-06-24 20:56 | XMS_ITS | Encounter Summary ---
Author Organization [facility] Address [address] [place] [address]. [place] [address] Care Team Providers Care Hospital Account Manager Name Role Phone Roxy Mor Unavailable Unavailable Case Samuel MD Unavailable [phone] Juhi Benson RN Unavailable Unavailable Veronica Joseph MD Primary Care Provider [phone] Encounter Details Date Type Department Care Team [...] on file Legal Sex Female 8:25 AM LABORER CONSTRUCTION OR LEAK GANG Gender Identity Not on file Sexual Orientation Not on file documented as of this encounter Plan of Treatment Not on file documented as of this encounter Goals Goal Patient Goal Type Associated Problems Recent Progress Patient-Stated? Author Pain Management General On track( 025 12:40 PM LABORER CONSTRUCTION OR LEAK GANG) Yes Juhi Benson RN Note: Goal Statement: [...] on filedocumented in this encounter Care Teams Hospital Account Manager Relationship Specialty Start Date End Date Veronica Joseph MD [address] [place] [address] PCP - General Family Medicine 06/18/24 Mor Ramsey Medical Student 04/03/24 Case Samuel MD [address] [place] [address], [address] [place] [address] Assigned Pediatric Specialist Provider 05/18/24 Juhi Benson, RN Specialty Electronics Assembler Hematology & Oncology 05/29/24 documented as of this encounter
--- OUTSIDE RECORDS SUMMARY | 2024-06-24 20:56 | XMS_ITS ---
Author Organization [facility] Address [address] [place] [address] Care Team Providers Care Glass Sander Belt Name Role Phone Roxy Mor Unavailable Unavailable Case Samuel MD Unavailable [phone] Juhi Benson RN Unavailable Unavailable Veronica Joseph MD Primary Care Provider [phone] Transitional Care Management Status:Enrolled (Active) Start date:06/16/2024 Enrollment date:06/16/2024 Continued Care and Services Coordination
--- OUTSIDE RECORDS SUMMARY | 2024-06-24 20:56 | XMS_ITS | Encounter Summary ---
Author Organization [facility] Address [address] [place] [address]. [place] [address] Care Team Providers Care Service Promoter Salesperson Name Role Phone No Ref-Primary, Physician Primary Care Provider Mor Ramsey Unavailable Unavailable Case Samuel MD Unavailable [phone] Juhi Benson RN Unavailable Unavailable Encounter Details [...] on file Legal Sex Female 8:25 AM TEAM OTR TRUCK DRIVER Gender Identity Not on file Sexual Orientation Not on file documented as of this encounter Plan of Treatment Not on file documented as of this encounter Goals Goal Patient Goal Type Associated Problems Recent Progress Patient-Stated? Author Pain Management General On track( 025 12:40 PM TEAM OTR TRUCK DRIVER) Yes Juhi Benson RN Note: Goal Statement: [...] on filedocumented in this encounter Care Teams Service Promoter Salesperson Relationship Specialty Start Date End Date No Ref-Primary, Physician PCP - General 03/15/24 06/17/24 Mor Ramsey Medical Student 04/03/24 Case Samuel MD [address] [place] [address], [address] [place] [address] Assigned Pediatric Specialist Provider 05/18/24 Juhi Benson RN Specialty Vocational Rehabilitation Specialist Hematology & Oncology 05/29/24 documented as of this encounter
--- OUTSIDE RECORDS SUMMARY | 2024-06-24 20:57 | XMS_ITS | Encounter Summary ---
Author Organization [facility] Address [address] [place] [address]. [place] [address] Care Team Providers Care Electrical High Tension Tester Name Role Phone Roxy Mor Unavailable Unavailable Case Samuel MD Unavailable [phone] Juhi Benson RN Unavailable Unavailable Veronica Joseph MD Primary Care Provider [phone] Encounter Details Date Type Department Care Team (Latest Contact Info) Description 06/24/2024 Travel Social History Tobacco Use Types Packs/Day [...] on file Legal Sex Female 8:25 AM GUARD CAPTAIN Gender Identity Not on file Sexual Orientation Not on file documented as of this encounter Plan of Treatment Not on file documented as of this encounter Goals Goal Patient Goal Type Associated Problems Recent Progress Patient-Stated? Author Pain Management General On track( 025 12:40 PM GUARD CAPTAIN) Yes Juhi Benson RN Note: Goal Statement: [...] on filedocumented in this encounter Care Teams Electrical High Tension Tester Relationship Specialty Start Date End Date Veronica Joseph MD [address] [place] [address] PCP - General Family Medicine 06/18/24 Mor Ramsey Medical Student 04/03/24 Case Samuel MD [address] [place] [address], [address] [place] [address] Assigned Pediatric Specialist Provider 05/18/24 Juhi Benson, RN Specialty Post Splitter Hematology & Oncology 05/29/24 documented as of this encounter
--- OUTSIDE RECORDS SUMMARY | 2024-06-24 20:57 | XMS_ITS | Clinical Summary ---
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 Emergency Department [address] [place] [phone] Richar Mahajan MD Sickle cell disease with crisis (H) Discharge Disposition: Home or Self Care 06/24/2024 Travel 06/23/2024 6:03 PM [facility] - 06/23/2024 9:47 PM [facility] Emergency [facility] Emergency Department [address] [place] [phone] Dayna Crane MD Sickle cell disease with crisis (H) Discharge Disposition: Home or Self Care 06/23/2024 Travel 06/22/2024 5:23 PM [facility] - 06/22/2024 10:02 PM [facility] Emergency [facility] Emergency Department [address] [place] [address] Lynne Varner MD Sickle cell anemia with crisis (H) Discharge Disposition: Home or Self Care 06/22/2024 Travel 06/16/2024 4:46 PM [facility] - 06/20/2024 11:00 AM [facility] Hospital Encounter [facility] 7C Med Surg [address] [place] [address] Abimael Schofield MD Pal, Suman, MD Duffy, Briar, MD Sickle cell pain crisis (H) Discharge Disposition: Home or Self Care 06/16/2024 Travel 06/15/[address] [phone] Case Samuel MD Refill Request 06/12/2024 6:38 PM [facility] - 06/15/2024 10:48 AM [facility] Hospital Encounter 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); Acute chest pain; Sickle cell pain crisis (H); Pneumonia of right lower lobe due to infectious organism Discharge Disposition: Home or Self Care 06/12/2024 Travel 06/11/2024 9:02 PM [facility] - 06/12/2024 1:57 AM [facility] Emergency [facility] Emergency Room [address] [place] [phone] Iliana Weber MD Sickle cell pain crisis (H) Discharge Disposition: Home or Self Care 06/11/2024 Travel 06/09/2024 11:30 AM [facility] Infusion Therapy Visit [facility] [address] [place] [phone] Case Samuel MD Sickle cell pain crisis (H) (Primary Dx) 06/09/2024 Travel 06/07/2024 1:30 PM [facility] Infusion Therapy Visit [facility] [address] [phone] Case Samuel MD Fever (Primary Dx); Sickle cell pain crisis (H) 06/07/2024 10:00 AM [facility] - 06/07/2024 10:45 AM [facility] Emergency [facility] Emergency Room [address] [place] [phone] Bernabe Farley MD Chest pain, unspecified type; Fever, unspecified fever cause; Left against medical advice Discharge Disposition: Home or Self Care 06/07/2024 Travel 06/06/2024 9:41 AM [facility] - 06/06/2024 1:29 PM [facility] Emergency [facility] Emergency Room [address] [place] [phone] Marilia Summers MD Sickle cell pain crisis (H) Discharge Disposition: Home or Self Care 06/05/2024 11:41 AM [facility] - 06/05/2024 3:28 PM [facility] Emergency [facility] Emergency Room [address] [place] [phone] Stiven Madsen MD Palm, Steven J, MD Sickle cell pain crisis (H) Discharge Disposition: Home or Self Care 06/05/2024 Travel 06/05/2024 [facility] [address] [place] [phone] Case Samuel MD Refill Request 06/03/2024 3:22 PM [facility] - 06/03/2024 5:30 PM [facility] Emergency [facility] Emergency Room [address] [place] [phone] Jennifer Bell MD Sickle cell pain crisis (H) Discharge Disposition: Home or Self Care 06/03/2024 Travel 06/01/2024 11:41 PM [facility] - 06/02/2024 2:35 AM [facility] Emergency [facility] Emergency Room [address] [place] [phone] Noel Pinzon MD Sickle cell pain crisis (H) Discharge Disposition: Home or Self Care 06/01/2024 Travel 05/31/2024 9:56 PM [facility] - 06/01/2024 12:46 AM [facility] Emergency [facility] Emergency Room [address] [place] [phone] Carley Riggins MD Sickle cell pain crisis (H) Discharge Disposition: Home or Self Care 05/31/2024 Travel 05/30/2024 8:00 AM [facility] Infusion Therapy Visit [facility] [address] [phone] Case Samuel MD 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); History of transfusion; Sickle cell pain crisis (H) 05/29/2024 11:30 AM [facility] Oncology Visit [facility] [address] [phone] Case Samuel MD Severe episode of recurrent major depressive disorder, 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); History of transfusion; Sickle cell pain crisis (H); 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) 05/29/2024 Orders Only [facility] [address] [phone] Juhi Benson RN Sickle cell pain crisis (H) (Primary Dx); 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) 05/29/2024 Travel 05/28/2024 11:56 PM [facility] - 05/29/2024 3:54 AM [facility] Emergency [facility] Emergency Room [address] [place] [phone] Lenin Smith MD Sickle cell disease with crisis (H) Discharge Disposition: Home or Self Care 05/28/2024 Travel 05/27/2024 11:58 AM [facility] - 05/27/2024 6:07 PM [facility] Emergency [facility] Emergency Room [address] [place] [phone] Blas Mcclellan MD Ohl, Christine E, DO Sickle cell disease with crisis (H) Discharge Disposition: Home or Self Care 05/27/2024 Travel 05/25/2024 10:53 AM [facility] - 05/25/2024 4:00 PM [facility] Hospital Encounter 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) Discharge Disposition: Home or Self Care 05/23/2024 9:03 PM [facility] - 05/23/2024 11:37 PM [facility] Emergency [facility] Emergency Room [address] [place] [phone] Marilia Summers MD Sickle cell pain crisis (H); Leukocytosis, unspecified type; Left-sided chest wall pain Discharge Disposition: Home or Self Care 05/23/2024 Travel 05/22/2024 3:27 PM [facility] - 05/22/2024 6:55 PM [facility] Emergency [facility] Emergency Room [address] [place] [phone] Bernabe Farley MD Sickle cell pain crisis (H) Discharge Disposition: Home or Self Care 05/22/2024 MyC Refill [facility] [address] [place] [phone] Case Samuel MD Refill Request 05/22/2024 Travel 05/22/2024 MyC Medical Advice [facility] Interventional Radiology [address] [place] [phone] Yadi Mahan RN 05/20/2024 7:30 AM [facility] - 05/20/2024 11:15 AM [facility] Emergency [facility] Emergency Room [address] [place] [phone] Stiven Madsen MD Sickle cell pain crisis (H) Discharge Disposition: Home or Self Care 05/20/2024 Travel 05/19/2024 2:10 AM [facility] - 05/19/2024 6:06 AM [facility] Emergency [facility] Emergency Room [address] [place] [phone] Marilia Summers MD Sickle cell disease with crisis (H) Discharge Disposition: Home or Self Care 05/19/2024 Travel 05/16/2024 9:41 PM [facility] - 05/17/2024 12:53 AM [facility] Emergency [facility] Emergency Room [address] [place] [phone] Guille Davis DO Sickle cell pain crisis (H) Discharge Disposition: Home or Self Care 05/16/2024 Travel 05/14/2024 10:07 PM [facility] - 05/15/2024 12:14 AM [facility] Emergency [facility] Emergency Room [address] [place] [phone] Marguerite Ponce PA-C Sickle cell pain crisis (H) Discharge Disposition: Home or Self Care 05/14/2024 Travel 05/13/2024 3:56 PM [facility] - 05/13/2024 7:56 PM [facility] Emergency [facility] Emergency Room [address] [place] [phone] Shaheen Unger MD Sickle cell pain crisis (H) Discharge Disposition: Home or Self Care 05/13/2024 Travel 05/08/2024 3:10 PM [facility] - 05/08/2024 7:54 PM [facility] Emergency [facility] Emergency Room [address] [place] [phone] Polly Alcaraz MD Sickle cell pain crisis (H) Discharge Disposition: Home or Self Care 05/08/2024 Travel 05/08/2024 MyC Refill [facility] [address] [place] [phone] Case Samuel MD Refill Request 05/06/2024 6:34 PM [facility] - 05/06/2024 10:33 PM [facility] Emergency [facility] Emergency Room [address] [place] [phone] Noel Pinzon MD Sickle cell pain crisis (H) Discharge Disposition: Home or Self Care 05/06/2024 Travel 05/05/2024 11:10 AM [facility] - 05/05/2024 2:25 PM [facility] Emergency [facility] Emergency Room [address] [place] [phone] Star Gifford MD Sickle cell pain crisis (H) Discharge Disposition: Home or Self Care 05/05/2024 Travel 05/02/2024 8:23 AM [facility] - 05/02/2024 8:54 AM [facility] Emergency M [facility] Emergency Department [address] [place] [phone] Andres Tejada MD Discharge Disposition: Left Without Being Seen 05/02/2024 Telephone [facility] [place] [phone] [facility] [address] [place] [phone] No Ref-Primary, Physician Call to schedule (Ed follow up) 05/02/2024 Travel 05/01/2024 11:00 AM [facility] Oncology Visit [facility] [address] [phone] Case Samuel MD History of transfusion (Primary Dx); 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); Gallstones; Avascular necrosis of bone of left hip (H); 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, with sickle cell retinopathy, unspecified laterality, unspecified whether proliferative (H); Sickle cell pain crisis (H) 05/01/2024 Orders Only [facility] [address] [place] [address] [phone] Juhi Benson RN 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) 05/01/2024 Travel 04/28/2024 12:41 AM [facility] - 04/28/2024 3:59 AM [facility] Emergency [facility] Emergency Room [address] [place] [phone] Sandy Joya MD Sickle cell pain crisis (H) Discharge Disposition: Home or Self Care 04/28/2024 Travel 04/26/2024 11:53 PM [facility] - 04/27/2024 2:14 AM [facility] Emergency [facility] Emergency Room [address] [place] [phone] Sandy Joya MD Sickle cell pain crisis (H) Discharge Disposition: Home or Self Care 04/26/2024 Travel 04/19/2024 1:48 AM [facility] - 04/19/2024 4:28 AM [facility] Emergency [facility] Emergency Room [address] [place] [phone] Juan Rodriguez MD Sickle cell pain crisis (H); Left hip pain; Nondisplaced articular fracture of head of left femur, initial encounter for closed fracture (H) Discharge Disposition: Home or Self Care 04/19/2024 Travel 04/08/2024 9:38 PM [facility] - 04/10/2024 10:16 AM [facility] Hospital Encounter [facility] [address] [place] [phone] Iliana Weber MD Huynh, Ryan K, MD Raddawi, Kenan, MD Sickle cell pain crisis (H) Discharge Disposition: Home or Self Care 04/08/2024 Travel 04/05/2024 11:32 PM [facility] - 04/06/2024 3:04 AM [facility] Emergency [facility] Emergency Room [address] [place] [phone] Guille Davis DO Sickle cell pain crisis (H); Pulmonary nodules Discharge Disposition: Home or Self Care 04/05/2024 Travel 03/29/2024 PRE VISIT [facility] [address] [place] [phone] Provider, Generic External Data *-*INCOMING RECORDS*-* (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 (H) [D57.1]) 03/28/2024 Transcribe Orders GENERIC EXTERNAL DATA DEPARTMENT Provider, Generic External Data 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 (H) (Primary Dx) 03/27/2024 Telephone [facility] [address] [place] [phone] Hector Crabtree RN Results 03/26/2024 1:08 AM [facility] - 03/26/2024 3:10 AM [facility] Emergency Room [address] [place] [phone] Sandy Joya MD Sickle cell [...] on file Legal Sex Female 8:25 AM [facility] Gender Identity Not on file Sexual Orientation Not on file Last Filed Vital Signs Vital Sign Reading Time Taken Comments Blood Pressure 111/67 06/24/2024 11:56 AM [facility] Pulse 101 06/24/2024 12:11 PM [facility] Temperature 36.9 C (98.4 F) 06/24/2024 9:26 AM [facility] Respiratory Rate 16 06/24/2024 9:26 AM [facility] Oxygen Saturation 100% 06/24/2024 12:11 PM [facility] Inhaled Oxygen Concentration - - Weight 52.2 kg (115 lb) 06/24/2024 9:26 AM [facility] Height 154.9 cm (5' 1) 06/24/2024 9:26 AM [facility] Body Mass Index 21.73 06/24/2024 9:26 AM [facility] Plan of Treatment Health Maintenance Due Date [...] Management General On track( 025 12:40 PM [facility]) Yes Juhi Benson RN Note: Goal Statement: [...] medication remaining. Medical Devices Implanted Type Area Transport Engineer Device Identifier Shelf Expiration Date Model / Serial / Lot Bard 9.6 Powerflow Apheresis Iv Port-05/25/2024 Implanted:Qty: 1 on 05/25/2024 by Myron Michel MD Port Right: Chest Wall [employer] 08/23/2024 [id number] / / [id number] Description:Right chest Wall Apheresis Port 9.6FR (Power) 6frt Smartport-05/25 Implanted:Qty: 1 on 05/25/2024 by Myron Michel MD Port Left: Chest Wall [employer] 09/23/2026 [id number] / / [id number] Description:6FR SL SmartPort (Power - 300psi max) Procedures Procedure Name Priority Date/Time Associated Diagnosis Comments ROUTINE UA WITH MICROSCOPIC REFLEX TO CULTURE STAT 06/24/2024 10:15 AM [facility] CBC WITH PLATELETS & DIFFERENTIAL STAT 06/24/2024 10:11 AM [facility] CBC WITH PLATELETS AND DIFFERENTIAL STAT 06/24/2024 10:11 AM [facility] RETICULOCYTE COUNT STAT 06/24/2024 10:11 AM [facility] HCG QUALITATIVE STAT 06/24/2024 10:11 AM [facility] MAGNESIUM STAT 06/24/2024 10:11 AM [facility] COMPREHENSIVE METABOLIC PANEL STAT 06/24/2024 10:11 AM [facility] INR STAT 06/24/2024 10:11 AM [facility] PARTIAL THROMBOPLASTIN TIME STAT 06/24/2024 10:11 AM [facility] CBC WITH PLATELETS & DIFFERENTIAL STAT 06/23/2024 6:22 PM [facility] DIFFERENTIAL STAT 06/23/2024 6:22 PM [facility] CBC WITH PLATELETS AND DIFFERENTIAL STAT 06/23/2024 6:22 PM [facility] HCG QUALITATIVE STAT 06/23/2024 6:22 PM [facility] COMPREHENSIVE METABOLIC PANEL STAT 06/23/2024 6:22 PM [facility] CBC WITH PLATELETS & DIFFERENTIAL STAT 06/22/2024 7:10 PM [facility] CBC WITH PLATELETS AND DIFFERENTIAL STAT 06/22/2024 7:10 PM [facility] RETICULOCYTE COUNT STAT 06/22/2024 7: 10 PM [facility] HCG QUALITATIVE STAT 06/22/2024 7:10 PM [facility] COMPREHENSIVE METABOLIC PANEL STAT 06/22/2024 7:10 PM [facility] CBC WITH PLATELETS & DIFFERENTIAL STAT 06/20/2024 5:48 AM [facility] CBC WITH PLATELETS AND DIFFERENTIAL STAT 06/20/2024 5:48 AM [facility] RETICULOCYTE COUNT Routine 06/20/2024 5: 48 AM [facility] COMPREHENSIVE METABOLIC PANEL Routine 06/20/2024 5:48 AM [facility] LACTATE DEHYDROGENASE Routine 06/20/2024 5:48 AM [facility] CBC WITH PLATELETS & DIFFERENTIAL STAT 06/19/2024 9:30 AM [facility] RBC AND PLATELET MORPHOLOGY STAT 06/19/2024 9:30 AM [facility] CBC WITH PLATELETS AND DIFFERENTIAL STAT 06/19/2024 9:30 AM [facility] RETICULOCYTE COUNT STAT 06/19/2024 9: 30 AM [facility] COMPREHENSIVE METABOLIC PANEL STAT 06/19/2024 9:30 AM [facility] LACTATE DEHYDROGENASE STAT 06/19/2024 9:30 AM [facility] PLATELET COUNT STAT 06/19/2024 12:17 AM [facility] CREATININE STAT 06/19/2024 12:17 AM [facility] CBC WITH PLATELETS & DIFFERENTIAL STAT 06/18/2024 8:24 AM [facility] DIFFERENTIAL STAT 06/18/2024 8:24 AM [facility] CBC WITH PLATELETS AND DIFFERENTIAL STAT 06/18/2024 8:24 AM [facility] RETICULOCYTE COUNT STAT 06/18/2024 8: 24 AM [facility] COMPREHENSIVE METABOLIC PANEL STAT 06/18/2024 8:24 AM [facility] LACTATE DEHYDROGENASE STAT 06/18/2024 8:24 AM [facility] ROUTINE UA WITH MICROSCOPIC REFLEX TO CULTURE STAT 06/17/2024 1:11 PM [facility] TRANSFUSE RED BLOOD CELLS (UNIT) STAT 06/17/2024 10:26 AM [facility] PREPARE RED BLOOD CELLS (UNIT) STAT 06/17/2024 9:12 AM [facility] TRANSFERRIN Add-On 06/17/2024 6:16 AM [facility] IRON AND IRON BINDING CAPACITY Add-On 06/17/2024 6:16 AM [facility] CBC WITH PLATELETS STAT 06/17/2024 6: 16 AM [facility] BASIC METABOLIC PANEL STAT 06/17/2024 6:16 AM [facility] TROPONIN T, HIGH SENSITIVITY STAT 06/16/2024 9:33 PM [facility] XR CHEST 2 VIEWS STAT 06/16/2024 6:09 PM [facility] ABO/RH TYPE AND SCREEN STAT 5:37 PM [facility] CBC WITH PLATELETS & DIFFERENTIAL STAT 06/16/2024 5:37 PM [facility] BLOOD CULTURE STAT 06/16/2024 5:37 PM [facility] TYPE AND SCREEN, ADULT STAT 5:37 PM [facility] RBC AND PLATELET MORPHOLOGY STAT 06/16/2024 5:37 PM [facility] CBC WITH PLATELETS AND DIFFERENTIAL STAT 06/16/2024 5:37 PM [facility] PROLACTIN STAT 06/16/2024 5:37 PM [facility] TROPONIN T, HIGH SENSITIVITY STAT 06/16/2024 5:37 PM [facility] COMPREHENSIVE METABOLIC PANEL STAT 06/16/2024 5:37 PM [facility] EKG 12-LEAD, TRACING ONLY STAT 06/16/2024 4:55 PM [facility] CBC WITH PLATELETS & DIFFERENTIAL STAT 06/15/2024 6:09 AM [facility] CBC WITH PLATELETS AND DIFFERENTIAL STAT 06/15/2024 6:09 AM [facility] BASIC METABOLIC PANEL STAT 06/15/2024 6:09 AM [facility] XR CHEST PORT 1 VIEW STAT 06/14/2024 8:46 AM [facility] CBC WITH PLATELETS STAT 06/14/2024 7: 08 AM [facility] BASIC METABOLIC PANEL STAT 06/14/2024 7:08 AM [facility] CBC WITH PLATELETS STAT 06/13/2024 6: 32 PM [facility] CBC WITH PLATELETS & DIFFERENTIAL STAT 06/13/2024 6:00 AM [facility] RBC AND PLATELET MORPHOLOGY STAT 06/13/2024 6:00 AM [facility] CBC WITH PLATELETS AND DIFFERENTIAL STAT 06/13/2024 6:00 AM [facility] BASIC METABOLIC PANEL STAT 06/13/2024 5:59 AM [facility] RESPIRATORY PANEL PCR STAT 06/12/2024 9:34 PM [facility] BLOOD CULTURE STAT 06/12/2024 8:46 PM [facility] BLOOD CULTURE STAT 06/12/2024 8:46 PM [facility] XR CHEST 2 VIEWS STAT 06/12/2024 7:38 PM [facility] ABO/RH TYPE AND SCREEN Add-On 7:17 PM [facility] CBC WITH PLATELETS & DIFFERENTIAL STAT 06/12/2024 7:17 PM [facility] TYPE AND SCREEN, ADULT Routine 7:17 PM [facility] RBC AND PLATELET MORPHOLOGY STAT 06/12/2024 7:17 PM [facility] CBC WITH PLATELETS AND DIFFERENTIAL STAT 06/12/2024 7:17 PM [facility] BLOOD GAS VENOUS STAT 06/12/2024 7:17 PM [facility] TROPONIN T, HIGH SENSITIVITY STAT 06/12/2024 7:17 PM [facility] BASIC METABOLIC PANEL STAT 06/12/2024 7:17 PM [facility] INR STAT 06/12/2024 7:17 PM [facility] EKG 12-LEAD, TRACING ONLY STAT 06/12/2024 6:37 PM [facility] ECG 12-LEAD WITH MUSE SJN,SJO,WWH STAT 06/11/2024 9:04 PM [facility] CBC WITH PLATELETS & DIFFERENTIAL Routine 06/07/2024 1:15 PM [facility] Sickle cell pain crisis (H) RBC AND PLATELET MORPHOLOGY Routine 06/07/2024 1:15 PM [facility] Sickle cell pain crisis (H) INFLUENZA A/B, RSV AND SARS-COV2 PCR Routine 06/07/2024 1:15 PM [facility] Fever CBC WITH PLATELETS AND DIFFERENTIAL Routine 06/07/2024 1:15 PM [facility] Sickle cell pain crisis (H) BASIC METABOLIC PANEL Routine 06/07/2024 1:15 PM [facility] Sickle cell pain crisis (H) ECG 12-LEAD WITH MUSE SJN,SJO,WWH STAT 06/05/2024 11:40 AM [facility] ECG 12-LEAD WITH MUSE SJN,SJO,WWH STAT 06/03/2024 3:24 PM [facility] CBC WITH PLATELETS & DIFFERENTIAL STAT 05/31/2024 10:21 PM [facility] RBC AND PLATELET MORPHOLOGY STAT 05/31/2024 10:21 PM [facility] CBC WITH PLATELETS AND DIFFERENTIAL STAT 05/31/2024 10:21 PM [facility] BASIC METABOLIC PANEL STAT 05/31/2024 10:21 PM [facility] RETICULOCYTE COUNT STAT 05/31/2024 10:21 PM [facility] TRANSFUSE RED BLOOD CELLS (UNIT) Routine 05/30/2024 8:28 AM [facility] 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) History of transfusion PREPARE RED BLOOD CELLS (UNIT) Routine 05/29/2024 5:12 PM [facility] ABO/RH TYPE AND SCREEN Routine 11:23 AM [facility] History of transfusion CBC WITH PLATELETS & DIFFERENTIAL Routine 05/29/2024 11:23 AM [facility] BILL ONLY- CAPILLARY ELECTROPHORESIS Routine 05/29/2024 11:23 AM [facility] BILL ONLY- SICKLE SOLUBILITY BILL Routine 05/29/2024 11:23 AM [facility] URINE CULTURE Routine 05/29/2024 11:23 AM [facility] TYPE AND SCREEN, ADULT Add-On 11:23 AM [facility] History of transfusion RBC AND PLATELET MORPHOLOGY Routine 05/29/2024 11:23 AM [facility] CBC WITH PLATELETS AND DIFFERENTIAL Routine 05/29/2024 11:23 AM [facility] GENOTYPE RED BLOOD CELL Routine 05/29/2024 11:23 AM [facility] History of transfusion HEMOGLOBIN EVAL REFLEX TO ELP OR RBC SOLUBILITY Routine 05/29/2024 11:23 AM [facility] FERRITIN Routine 05/29/2024 11:23 AM [facility] ROUTINE UA WITH MICROSCOPIC REFLEX TO CULTURE Routine 05/29/2024 11:23 AM [facility] COMPREHENSIVE METABOLIC PANEL Routine 05/29/2024 11:23 AM [facility] RETICULOCYTE COUNT Routine 05/29/2024 11:23 AM [facility] CBC WITH PLATELETS & DIFFERENTIAL STAT 05/29/2024 12:53 AM [facility] MANUAL DIFFERENTIAL STAT 05/29/2024 12:53 AM [facility] CBC WITH PLATELETS AND DIFFERENTIAL STAT 05/29/2024 12:53 AM [facility] RETICULOCYTE COUNT STAT 05/29/2024 12:53 AM [facility] CBC WITH PLATELETS & DIFFERENTIAL STAT 05/27/2024 3:13 PM [facility] MANUAL DIFFERENTIAL STAT 05/27/2024 3 :13 PM [facility] CBC WITH PLATELETS AND DIFFERENTIAL STAT 05/27/2024 3:13 PM [facility] RETICULOCYTE COUNT STAT 05/27/2024 3: 13 PM [facility] XR CHEST 2 VIEWS STAT 05/27/2024 2:57 PM [facility] COMPREHENSIVE METABOLIC PANEL STAT 05/27/2024 2:30 PM [facility] ECG 12-LEAD WITH MUSE SJN,SJO,WWH STAT 05/27/2024 12:12 PM [facility] IR PROCEDURE NOTE Routine 05/25/2024 2:5 4 PM [facility] IR CHEST PORT PLACEMENT > 5 YRS OF AGE Routine: Next available opening 05/25/2024 2:47 PM [facility] 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) IR CHEST PORT PLACEMENT > 5 YRS OF AGE Priority: 1-2 Weeks 05/25/2024 2:47 PM [facility] 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) HCG QUALITATIVE URINE Routine 05/25/2024 12:[address] CHEST PULMONARY EMBOLISM W CONTRAST STAT 05/23/2024 9:33 PM [facility] N TERMINAL PRO BNP OUTPATIENT STAT 05/23/2024 9:02 PM [facility] TROPONIN T, HIGH SENSITIVITY STAT 05/23/2024 9:02 PM [facility] RETICULOCYTE COUNT STAT 05/23/2024 9: 02 PM [facility] CBC WITH PLATELETS STAT 05/23/2024 9: 02 PM [facility] ECG 12-LEAD WITH MUSE SJN,SJO,WWH STAT 05/23/2024 6:54 PM [facility] XR CHEST 2 VIEWS STAT 05/22/2024 5:19 PM [facility] CBC WITH PLATELETS & DIFFERENTIAL STAT 05/22/2024 3:51 PM [facility] RBC AND PLATELET MORPHOLOGY STAT 05/22/2024 3:51 PM [facility] CBC WITH PLATELETS AND DIFFERENTIAL STAT 05/22/2024 3:51 PM [facility] BASIC METABOLIC PANEL STAT 05/22/2024 3:51 PM [facility] ECG 12-LEAD WITH MUSE SJN,SJO,WWH STAT 05/22/2024 3:14 PM [facility] XR CHEST 2 VIEWS STAT 05/20/2024 9:30 AM [facility] CBC WITH PLATELETS & DIFFERENTIAL STAT 05/20/2024 9:09 AM [facility] RBC AND PLATELET MORPHOLOGY STAT 05/20/2024 9:09 AM PEACH [facility] BASIC METABOLIC PANEL STAT 05/20/2024 9:09 AM [facility] EXTRA GREEN TOP (LITHIUM HEPARIN) TUBE STAT 05/20/2024 9:09 AM [facility] EXTRA TUBE STAT 05/20/2024 9:09 AM [facility] CBC WITH PLATELETS AND DIFFERENTIAL STAT 05/20/2024 9:09 AM [facility] RETICULOCYTE COUNT STAT 05/20/2024 9: 09 AM [facility] BASIC METABOLIC PANEL STAT 05/20/2024 8:21 AM [facility] ECG 12-LEAD WITH MUSE SJN,SJO,WWH STAT 05/20/2024 7:36 AM [facility] CBC WITH PLATELETS & DIFFERENTIAL STAT 05/19/2024 3:05 AM [facility] MANUAL DIFFERENTIAL STAT 05/19/2024 3:05 AM [facility] CBC WITH PLATELETS AND DIFFERENTIAL STAT 05/19/2024 3:05 AM [facility] HCG QUALITATIVE STAT 05/19/2024 3:05 AM [facility] CK TOTAL STAT 05/19/2024 3:05 AM [facility] HEPATIC FUNCTION PANEL STAT 3:05 AM [facility] BASIC METABOLIC PANEL STAT 05/19/2024 3:05 AM [facility] RETICULOCYTE COUNT STAT 05/19/2024 3: 05 AM [facility] CBC WITH PLATELETS & DIFFERENTIAL STAT 05/16/2024 10:17 PM [facility] RBC AND PLATELET MORPHOLOGY STAT 05/16/2024 10:17 PM [facility] CBC WITH PLATELETS AND DIFFERENTIAL STAT 05/16/2024 10:17 PM [facility] BASIC METABOLIC PANEL STAT 05/16/2024 10:17 PM [facility] INFLUENZA A/B, RSV AND SARS-COV2 PCR STAT 05/16/2024 10:00 PM [facility] CBC WITH PLATELETS & DIFFERENTIAL STAT 05/14/2024 10:24 PM [facility] MANUAL DIFFERENTIAL STAT 05/14/2024 10:24 PM [facility] CBC WITH PLATELETS AND DIFFERENTIAL STAT 05/14/2024 10:24 PM [facility] HCG QUALITATIVE STAT 05/14/2024 10:24 PM [facility] TROPONIN T, HIGH SENSITIVITY STAT 05/14/2024 10:24 PM [facility] RETICULOCYTE COUNT STAT 05/14/2024 10:24 PM [facility] HEPATIC FUNCTION PANEL STAT 10:24 PM [facility] BASIC METABOLIC PANEL STAT 05/14/2024 10:24 PM [facility] ECG 12-LEAD WITH MUSE SJN,SJO,WWH STAT 05/14/2024 10:12 PM [facility] EXTRA PURPLE TOP TUBE STAT 05/13/2024 6:17 PM [facility] EXTRA TUBE STAT 05/13/2024 6:17 PM [facility] LACTATE DEHYDROGENASE STAT 05/13/2024 6:16 PM [facility] CBC WITH PLATELETS & DIFFERENTIAL STAT 05/13/2024 4:57 PM [facility] MANUAL DIFFERENTIAL STAT 05/13/2024 4 :57 PM [facility] CBC WITH PLATELETS AND DIFFERENTIAL STAT 05/13/2024 4:57 PM [facility] TROPONIN T, HIGH SENSITIVITY STAT 05/13/2024 4:57 PM [facility] RETICULOCYTE COUNT STAT 05/13/2024 4: 57 PM [facility] HEPATIC FUNCTION PANEL STAT 4:57 PM [facility] BASIC METABOLIC PANEL STAT 05/13/2024 4:57 PM [facility] ECG 12-LEAD WITH MUSE SJN,SJO,WWH STAT 05/13/2024 3:38 PM [facility] INFLUENZA A/B, RSV AND SARS-COV2 PCR STAT 05/08/2024 7:33 PM [facility] XR CHEST 2 VIEWS STAT 05/08/2024 5:27 PM [facility] CBC WITH PLATELETS & DIFFERENTIAL STAT 05/08/2024 4:14 PM [facility] RBC AND PLATELET MORPHOLOGY STAT 05/08/2024 4:14 PM [facility] CBC WITH PLATELETS AND DIFFERENTIAL STAT 05/08/2024 4:14 PM [facility] HCG QUALITATIVE STAT 05/08/2024 4:14 PM [facility] INR STAT 05/08/2024 4:14 PM [facility] TROPONIN T, HIGH SENSITIVITY STAT 05/08/2024 4:14 PM [facility] RETICULOCYTE COUNT STAT 05/08/2024 4: 14 PM [facility] COMPREHENSIVE METABOLIC PANEL STAT 05/08/2024 4:14 PM [facility] ECG 12-LEAD WITH MUSE SJN,SJO,WWH STAT 05/08/2024 3:13 PM [facility] ECG 12-LEAD WITH MUSE SJN,SJO,WWH STAT 05/06/2024 7:51 PM [facility] CBC WITH PLATELETS & DIFFERENTIAL STAT 05/06/2024 7:43 PM [facility] RBC AND PLATELET MORPHOLOGY STAT 05/06/2024 7:43 PM [facility] CBC WITH PLATELETS AND DIFFERENTIAL STAT 05/06/2024 7:43 PM [facility] HEPATIC FUNCTION PANEL STAT 7:43 PM [facility] RETICULOCYTE COUNT STAT 05/06/2024 7: 43 PM [facility] TROPONIN T, HIGH SENSITIVITY STAT 05/06/2024 7:43 PM [facility] BASIC METABOLIC PANEL STAT 05/06/2024 7:43 PM [facility] XR CHEST 2 VIEWS STAT 05/05/2024 12:16 PM [facility] CBC WITH PLATELETS & DIFFERENTIAL STAT 05/05/2024 11:50 AM [facility] RBC AND PLATELET MORPHOLOGY STAT 05/05/2024 11:50 AM [facility] CBC WITH PLATELETS AND DIFFERENTIAL STAT 05/05/2024 11:50 AM [facility] TROPONIN T, HIGH SENSITIVITY STAT 05/05/2024 11:50 AM [facility] RETICULOCYTE COUNT STAT 05/05/2024 11:50 AM [facility] BASIC METABOLIC PANEL STAT 05/05/2024 11:50 AM [facility] ECG 12-LEAD WITH MUSE SJN,SJO,WWH STAT 05/05/2024 11:03 AM [facility] CBC WITH PLATELETS & DIFFERENTIAL STAT 04/28/2024 1:50 AM [facility] VITAMIN D DEFICIENCY SCREENING Add-On 04/28/2024 1:50 AM [facility] Sickle cell pain crisis (H) MANUAL DIFFERENTIAL STAT 04/28/2024 1 :50 AM [facility] CBC WITH PLATELETS AND DIFFERENTIAL STAT 04/28/2024 1:50 AM [facility] RETICULOCYTE COUNT STAT 04/28/2024 1: 50 AM [facility] COMPREHENSIVE METABOLIC PANEL STAT 04/28/2024 1:50 AM [facility] CBC WITH PLATELETS & DIFFERENTIAL STAT 04/27/2024 12:23 AM [facility] RBC AND PLATELET MORPHOLOGY STAT 04/27/2024 12:23 AM [facility] CBC WITH PLATELETS AND DIFFERENTIAL STAT 04/27/2024 12:23 AM [facility] RETICULOCYTE COUNT STAT 04/27/2024 12:23 AM [facility] COMPREHENSIVE METABOLIC PANEL STAT 04/27/2024 12:[address] PELVIS BONE WO CONTRAST STAT 04/19/2024 3:22 AM [facility] HCG QUALITATIVE URINE STAT 04/19/2024 2:17 AM [facility] ROUTINE UA WITH MICROSCOPIC REFLEX TO CULTURE STAT 04/19/2024 2:16 AM [facility] CBC WITH PLATELETS & DIFFERENTIAL STAT 04/19/2024 2:11 AM [facility] MANUAL DIFFERENTIAL STAT 04/19/2024 2 :11 AM [facility] CBC WITH PLATELETS AND DIFFERENTIAL STAT 04/19/2024 2:11 AM [facility] RETICULOCYTE COUNT STAT 04/19/2024 2: 11 AM [facility] BASIC METABOLIC PANEL STAT 04/19/2024 2:11 AM [facility] CBC WITH PLATELETS & DIFFERENTIAL Routine 04/10/2024 5:35 AM [facility] CBC WITH PLATELETS AND DIFFERENTIAL Routine 04/10/2024 5:35 AM [facility] CBC WITH PLATELETS STAT 04/09/2024 6: 13 AM [facility] BASIC METABOLIC PANEL STAT 04/09/2024 6:13 AM [facility] CBC WITH PLATELETS & DIFFERENTIAL STAT 04/08/2024 10:22 PM [facility] EXTRA RED TOP TUBE STAT 04/08/2024 10:22 PM [facility] EXTRA BLUE TOP TUBE STAT 04/08/2024 10:22 PM [facility] CBC WITH PLATELETS AND DIFFERENTIAL STAT 04/08/2024 10:22 PM [facility] EXTRA TUBE STAT 04/08/2024 10:22 PM [facility] BASIC METABOLIC PANEL STAT 04/08/2024 10:22 PM [facility] RETICULOCYTE COUNT STAT 04/08/2024 10:22 PM [facility] ECG 12-LEAD WITH MUSE SJN,SJO,WWH STAT 04/08/2024 9:[address] CHEST PULMONARY EMBOLISM W CONTRAST STAT 04/06/2024 2:22 AM [facility] D DIMER QUANTITATIVE STAT 04/06/2024 12:45 AM [facility] TROPONIN T, HIGH SENSITIVITY STAT 04/06/2024 12:45 AM [facility] BASIC METABOLIC PANEL STAT 04/06/2024 12:45 AM [facility] CBC WITH PLATELETS AND DIFFERENTIAL STAT 04/06/2024 12:43 AM [facility] ECG 12-LEAD WITH MUSE SJN,SJO,WWH STAT 04/06/2024 12:41 AM [facility] CBC WITH PLATELETS & DIFFERENTIAL STAT 04/05/2024 11:47 PM [facility] XR CHEST 2 VIEWS STAT 03/26/2024 2:19 AM [facility] CBC WITH PLATELETS & DIFFERENTIAL STAT 03/26/2024 1:54 AM [facility] MANUAL DIFFERENTIAL Routine 03/26/2024 1 :54 AM [facility] CBC WITH PLATELETS AND DIFFERENTIAL STAT 03/26/2024 1:54 AM [facility] HCG QUALITATIVE STAT 03/26/2024 1:54 AM [facility] RETICULOCYTE COUNT STAT 03/26/2024 1: 54 AM [facility] TROPONIN T, HIGH SENSITIVITY STAT 03/26/2024 1:54 AM [facility] COMPREHENSIVE METABOLIC PANEL STAT 03/26/2024 1:54 AM [facility] INR STAT 03/26/2024 1:54 AM [facility] ECG 12-LEAD WITH MUSE SJN,SJO,WWH STAT 03/26/2024 1:13 AM [facility] from Last 3 Months Results * (ABNORMAL) UA with Microscopic reflex to Culture (06/24/2024 10:15 AM [facility]) Only the most recent of4 resultswithin the time period is included. Color Urine Light Yellow Colorless, Straw, Light Yellow, Yellow 06/24/2024 10:25 AM [facility] Appearance Urine Clear Clear 06/25/19 10:25 AM [facility] Glucose Urine Negative Negative mg/dL 06/24/2024 10:25 AM [facility] Bilirubin Urine Negative Negative 10:25 AM [facility] Ketones Urine Negative Negative mg/dL 06/24/2024 10:25 AM [facility] Specific Finger Urine 1.009 1.003 - 1.035 06/24/2024 10:25 AM [facility] Blood Urine Negative Negative 06/24/2024 10:25 AM [facility] pH Urine 7.5(H) 5.0 - 7.0 06/24/2024 10:25 AM [facility] Protein Albumin Urine Negative Negative mg/dL 06/24/2024 10:25 AM [facility] Urobilinogen Urine Normal Normal, 2.0 mg/dL 06/24/2024 10:25 AM [facility] Nitrite Urine Negative Negative 06/24/2024 10:25 AM [facility] Leukocyte Esterase Urine Negative Negative 06/24/2024 10:25 AM [facility] RBC Urine <1 <=2 /HPF 06/24/2024 10:25 AM [facility] WBC Urine <1 <=5 /HPF 06/24/2024 10:25 AM [facility] Squamous Epithelials Urine 11(H) <=1 /HPF 06/24/2024 10:25 AM [facility] Hyaline Casts Urine 1 <=2 /LPF 06/24/2024 10:25 AM [facility] Urine MID-STREAM URINE SPECIMEN / Unknown Non-blood Collection / Unknown 06/24/2024 10:15 AM [facility] 06/24/2024 10:20 AM [facility] Narrative [facility] - 06/24/2024 10:25 AM [facility] Urine Culture not indicated us Richar aMhajan MD LAB - URINE ORDERABLES Liss l Result [facility] LABORATORY [facility] [place] [facility] [address] [facility], [address] [place] [address] * (ABNORMAL) CBC with platelets and differential (06/24/2024 10:11 AM [facility]) Only the most recent of31 resultswithin the time period is included. WBC Count 7.8 4.0 - 11.0 10e3/uL 06/24/2024 10:28 AM [facility] RBC Count 2.49(L) 3.80 - 5.20 10e6/uL 06/24/2024 10:28 AM [facility] Hemoglobin 7.9(L) 11.7 - 15.7 g/dL 06/24/2024 10:28 AM [facility] Hematocrit 24.8(L) 35.0 - 47.0 % 06/24/2024 10:28 AM [facility] MCV 100 78 - 100 fL 06/24/2024 10:28 AM [facility] MCH 31.7 26.5 - 33.0 pg 06/24/2024 10:28 AM [facility] MCHC 31.9 31.5 - 36.5 g/dL 06/24/2024 10:28 AM [facility] RDW 19.0(H) 10.0 - 15.0 % 06/24/2024 10:28 AM [facility] Platelet Count 482(H) 150 - 450 10e3/uL 06/24/2024 10:28 AM [facility] % Neutrophils 61 % 06/24/2024 10:28 AM [facility] % Lymphocytes 26 % 06/24/2024 10:28 AM [facility] % Monocytes 9 % 06/24/2024 10:28 AM [facility] % Eosinophils 1 % 06/24/2024 10:28 AM [facility] % Basophils 2 % 06/24/2024 10:28 AM [facility] % Immature Granulocytes 1 % 06/24/2024 10:28 AM [facility] NRBCs per 100 WBC 5(H) <1 /100 025 10:28 AM [facility] Absolute Neutrophils 4.8 1.6 - 8.3 10e3/uL 06/24/2024 10:28 AM [facility] Absolute Lymphocytes 2.1 0.8 - 5.3 10e3/uL 06/24/2024 10:28 AM [facility] Absolute Monocytes 0.7 0.0 - 1.3 10e3/uL 06/24/2024 10:28 AM [facility] Absolute Eosinophils 0.1 0.0 - 0.7 10e3/uL 06/24/2024 10:28 AM [facility] Absolute Basophils 0.1 0.0 - 0.2 10e3/uL 06/24/2024 10:28 AM [facility] Absolute Immature Granulocytes 0.1 <=0.4 10e3/uL 06/24/2024 10:28 AM [facility] Absolute NRBCs 0.4 10e3/uL 06/24/2024 10:28 AM [facility] Blood BLOOD SPECIMEN / Unknown Venipuncture / Unknown 06/24/2024 10:11 AM [facility] 06/24/2024 10:22 AM [facility] Richar Mahajan MD LAB - BLOOD ORDERABLES Liss l Result Performing Organization Address City/[facility] Co de Phone Number LABORATORY [facility] Lab [address], [address] * (ABNORMAL) Reticulocyte count (06/24/2024 10:11 AM [facility]) Only the most recent of22 resultswithin the time period is included. % Reticulocyte 11.2(H) 0.5 - 2.0 % 06/24/2024 10:28 AM [facility] Absolute Reticulocyte 0.280(H) 0.025 - 0.095 10e6/uL 06/24/2024 10:28 AM [facility] Blood BLOOD SPECIMEN / Unknown Venipuncture / Unknown 06/24/2024 10:11 AM [facility] 06/24/2024 10:22 AM [facility] Richar Mahajan MD LAB - BLOOD ORDERABLES Liss l Result Performing Organization Address City/[facility] Co de Phone Number LABORATORY [facility] Lab [address], [address] * (ABNORMAL) INR (06/24/2024 10:11 AM [facility]) Only the most recent of4 resultswithin the time period is included. INR 1.45(H) 0.85 - 1.15 06/24/2024 10:54 AM [facility] Blood BLOOD SPECIMEN / Unknown Venipuncture / Unknown 06/24/2024 10:11 AM [facility] 06/24/2024 10:21 AM [facility] Richar Mahajan MD LAB - BLOOD ORDERABLES Liss l Result LABORATORY [facility] [place] [facility] [address], [address] * Partial thromboplastin time (06/24/2024 10:11 AM [facility]) aPTT 32 22 - 38 Seconds 06/24/2024 10:55 AM [facility] U LABORATORY Blood BLOOD SPECIMEN / Unknown Venipuncture / Unknown 06/24/2024 10:11 AM [facility] 06/24/2024 10:21 AM [facility] Richar Mahajan MD LAB - BLOOD ORDERABLES Liss l Result Performing Organization Address City/[facility]/ZIP Co de Phone Number LABORATORY [facility] Lab [address], [address] * Magnesium (06/24/2024 10:11 AM [facility]) Pathologist [facility] Magnesium 2.1 1.7 - 2.3 mg/dL 06/24/2024 10:51 AM [facility] U LABORATORY Blood BLOOD SPECIMEN / Unknown Venipuncture / Unknown 06/24/2024 10:11 AM [facility] 06/24/2024 10:21 AM [facility] Richar Mahajan MD LAB - BLOOD ORDERABLES Liss l Result Performing Organization Address City/[facility]/ZIP Co de Phone Number U LABORATORY [facility] [place] [facility] [address], [address] * HCG qualitative Blood (06/24/2024 10:11 AM [facility]) Only the most recent of7 resultswithin the time period is included. hCG Serum Qualitative Negative Negative JARET 06/24/2024 10:33 AM [facility] Comment:This test is for scr eening purposes. Results should be interpreted along with the clinical picture. Confirmation testing is available if warranted by ordering [id number], HCG Quantitative . Blood BLOOD SPECIMEN / Unknown Venipuncture / Unknown 06/24/2024 10:11 AM [facility] 06/24/2024 10:20 AM [facility] Richar Mahajan MD LAB - BLOOD ORDERABLES [place] Result [facility] LABORATORY [facility] [place] [facility] [address], [address] [place] [address] * (ABNORMAL) Comprehensive metabolic panel (06/24/2024 10:11 AM [facility]) Only the most recent of13 resultswithin the time period is included. Sodium 138 135 - 145 mmol/L 06/24/2024 10:51 AM [facility] Potassium 4.3 3.4 - 5.3 mmol/L 06/24/2024 10:51 AM [facility] Carbon Dioxide (CO2) 20(L) 22 - 29 mmol/L 06/24/2024 10:51 AM [facility] Anion Gap 10 7 - 15 mmol/L 06/24/2024 10:51 AM [facility] Urea Nitrogen 9.9 6.0 - 20.0 mg/dL 06/24/2024 10:51 AM [facility] Creatinine 0.62 0.51 - 0.95 mg/dL 06/24/2024 10:51 AM [facility] GFR Estimate >90 >60 mL/min/1.7 3m2 06/24/2024 10:51 AM [facility] Comment:eGFR calculated us2020 CKD-EPI equation. Calcium 8.7(L) 8.8 - 10.4 mg/dL 06/24/2024 10:51 AM [facility] Chloride 108(H) 98 - 107 mmol/L 06/24/2024 10:51 AM [facility] Glucose 98 70 - 99 mg/dL 06/24/2024 10:51 AM [facility] Alkaline Phosphatase 119 40 - 150 U/L 06/24/2024 10:51 AM [facility] AST 57(H) 0 - 45 U/L 06/24/2024 10:51 AM [facility] ALT 53(H) 0 - 50 U/L 06/24/2024 10:51 AM [facility] Protein Total 7.4 6.4 - 8.3 g/dL 06/24/2024 10:51 AM [facility] Albumin 4.0 3.5 - 5.2 g/dL 06/24/2024 10:51 AM [facility] Bilirubin Total 1.1 <=1.2 mg/dL 06/24/2024 10:51 AM [facility] Blood BLOOD SPECIMEN / Unknown Venipuncture / Unknown 06/24/2024 10:11 AM [facility] 06/24/2024 10:21 AM [facility] us Richar Mahajan MD LAB - BLOOD ORDERABLES [place] Result [facility] LABORATORY [facility] [place] [facility] [address], [address] [address] * (ABNORMAL) Manual Differential (06/23/2024 6:22 PM [facility]) Only the most recent of2 resultswithin the time period is included. % Neutrophils 73 % 06/23/2024 7:05 PM [facility] % Lymphocytes 24 % 06/23/2024 7:05 PM [facility] % Monocytes 2 % 06/23/2024 7:05 PM [facility] % Eosinophils 0 % 06/23/2024 7:05 PM [facility] % Basophils 2 % 06/23/2024 7:05 PM [facility] NRBCs per 100 WBC 12(H) <=0 % 06/23/2024 7:05 PM [facility] Absolute Neutrophils 7.2 1.6 - 8.3 10e3/uL 06/23/2024 7:05 PM [facility] Absolute Lymphocytes 2.3 0.8 - 5.3 10e3/uL 06/23/2024 7:05 PM [facility] Absolute Monocytes 0.2 0.0 - 1.3 10e3/uL 06/23/2024 7:05 PM [facility] Absolute Eosinophils 0.0 0.0 - 0.7 10e3/uL 06/23/2024 7:05 PM [facility] Absolute Basophils 0.2 0.0 - 0.2 10e3/uL 06/23/2024 7:05 PM [facility] Absolute NRBCs 1.2(H) <=0.0 10e3/uL 025 7:05 PM [facility] RBC Morphology Confirmed RBC Indices 06/23/2024 7:05 PM [facility] Platelet Assessment Automated Count Confirmed. Platelet morphology is normal. Automated Count Confirmed. Platelet morphology is normal. 06/23/2024 7:05 PM [facility] Polychromasia Slight(A) None Seen 06/23/2024 7:05 PM [facility] Sickle Cells Slight(A) None Seen 06/23/2024 7:05 PM [facility] Target Cells Slight(A) None Seen 06/23/2024 7:05 PM [facility] Blood BLOOD SPECIMEN / Unknown Venipuncture / Unknown 06/23/2024 6:22 PM [facility] 06/23/2024 6:34 PM [facility] Dayna Crane MD LAB - BLOOD ORDERABLES Final Re sult LABORATORY [facility] [place] [facility] [address] [place] [address], [address] * (ABNORMAL) Lactate Dehydrogenase (06/20/2024 5:48 AM [facility]) Only the most recent of4 resultswithin the time period is included. Lactate Dehydrogenase 571(H) 0 - 250 U/L 06/20/2024 6:35 AM [facility] Blood (Portacath) IVAD (Port) / Unknown 06/20/2024 5:48 AM [facility] 06/20/2024 5:55 AM [facility] Polly Allen MD LAB - BLOOD ORDER SYD Final Result LABORATORY [facility] [place] [facility] [address] [facility] [facility], [address] [id number] [place] [address] * (ABNORMAL) RBC and Platelet Morphology (06/19/2024 9:30 AM [facility]) Only the most recent of14 resultswithin the time period is included. RBC Morphology Confirmed RBC Indices 06/19/2024 11:43 AM [facility] Platelet Assessment Automated Count Confirmed. Giant platelets are present.(A) Automated Count Confirmed. Platelet morphology is normal. 06/19/2024 11:43 AM [facility] Giant Platelets Slight(A) None Seen 11:43 AM [facility] Elliptocytes None Seen None Seen 06/19/2024 11:43 AM [facility] Polychromasia Slight(A) None Seen 06/19/2024 11:43 AM [facility] RBC Fragments Slight(A) None Seen 06/19/2024 11:43 AM [facility] Reactive Lymphocytes Present(A) None Seen 06/19/2024 11:43 AM [facility] Sickle Cells Moderate(A) None Seen 06/19/2024 11:43 AM [facility] Smudge Cells Present(A) None Seen 06/19/2024 11:43 AM [facility] Target Cells Moderate(A) None Seen 06/19/2024 11:43 AM [facility] Blood CENTRAL VENOUS CATHETER / Unknown VAD(CVC, PICC) / Unknown 06/19/2024 9:30 AM [facility] 06/19/2024 9:42 AM [facility] Polly Allen MD LAB - BLOOD ORDER SYD Final Result [facility] LABORATORY [facility] [place] [facility] [address], [address] [place] [address], [facility] * (ABNORMAL) Platelet count (06/19/2024 12:17 AM [facility]) Platelet Count 467(H) 150 - 450 10e3/uL 06/19/2024 12:44 AM [facility] Blood BLOOD SPECIMEN / Unknown Venipuncture / Unknown 06/19/2024 12:17 AM [facility] 06/19/2024 12:26 AM [facility] Laquita Kelley MD LAB - BLOOD ORDERABLES Final Re sult U LABORATORY [facility] [address], [address] [id number] [place] [address] * Creatinine (06/19/2024 12:17 AM [facility]) Creatinine 0.72 0.51 - 0.95 mg/dL 06/19/2024 12:51 AM [facility] GFR Estimate >90 >60 mL/min/1.7 3m2 06/19/2024 12:51 AM [facility] Comment:eGFR calculated us2020 CKD-EPI equation. Blood BLOOD SPECIMEN / Unknown Venipuncture / Unknown 06/19/2024 12:17 AM [facility] 06/19/2024 12:26 AM [facility] Laquita Kelley MD LAB - BLOOD ORDERABLES Final Re sult U LABORATORY [facility] [address] [facility], [address] * Transfuse red blood cells (unit), Sickle Cell (Hgb S) Negative (06/17/2024 2:33 PM [facility]) Only the most recent of2 resultswithin the time period is included. Drake Nina MD BLOOD TRANSFUSION ORDERABLES Final Result * Prepare red blood cells (unit) (06/17/2024 9:12 AM [facility]) Only the most recent of2 resultswithin the time period is included. Blood Component Type Red Blood Cells UU BLOOD BANK Product Code [id number] UU BLOO D BANK Unit Status Transfused UU BLOO D BANK Unit Number [id number] UU B LOOD BANK CROSSMATCH COMPATIBLE UU BLOOD BANK CODING SYSTEM [id number] UU BLO OD BANK ISSUE DATE AND TIME [id number] UU BLOOD BANK UNIT ABO/RH A+ UU BLOOD BANK UNIT TYPE ISBT 6200 UU BL OOD BANK 06/17/2024 9:12 AM [facility] us Drake Nina MD BLOOD BANK PRODUCT ORDERABLES Final Result BLOOD BANK [address] [place] [address], [facility] * (ABNORMAL) Transferrin (06/17/2024 6:16 AM [facility]) Transferrin 100.0(L) 200.0 - 360.0 mg/dL 06/17/2024 9:36 AM [facility] Blood VENOUS LINE / Unknown IVAD (Port) / Unknown 06/17/2024 6:16 AM [facility] 06/17/2024 6:27 AM [facility] us Drake Nina MD LAB - BLOOD ORDERABLES Final Result Performing Organization Address City/[facility]/ZIP Co de Phone Number LABORATORY [facility] [place] [facility] [address] [facility], [address] [phone] * Iron and iron binding capacity (06/17/2024 6:16 AM PE[facility] GROWER) Iron 123 37 - 145 ug/dL 06/17/2024 10:02 AM [facility] Iron Binding Capacity 06/17/2024 10:02 AM [facility] Comment:Unable to calculate: UIBC or Iron value is outside detectable level. Iron Sat Index 06/17/2024 10:02 AM [facility] Comment:Unable to calculate: UIBC or Iron value is outside detectable level. Blood VENOUS LINE / Unknown IVAD (Port) / Unknown 06/17/2024 6:16 AM [facility] 06/17/2024 6:27 AM [facility] us Drake Nina MD LAB - BLOOD ORDERABLES Final Result U LABORATORY [facility] [place] [facility] [address] [facility], [address] [id number] * (ABNORMAL) Basic metabolic panel (06/17/2024 6:16 AM [facility] GROWER) Only the most recent of20 resultswithin the time period is included. Pathologist [facility] Sodium 134(L) 135 - 145 mmol/L 06/17/2024 6:55 AM [facility] Potassium 4.6 3.4 - 5.3 mmol/L 06/17/2024 6:55 AM [facility] Chloride 105 98 - 107 mmol/L 06/17/2024 6:55 AM [facility] Carbon Dioxide (CO2) 20(L) 22 - 29 mmol/L 06/17/2024 6:55 AM [facility] Anion Gap 9 7 - 15 mmol/L 06/17/2024 6:55 AM [facility] Urea Nitrogen 16.1 6.0 - 20.0 mg/dL 06/17/2024 6:55 AM [facility] Creatinine 0.90 0.51 - 0.95 mg/dL 06/17/2024 6:55 AM [facility] GFR Estimate 88 >60 mL/min/1.7 3m2 06/17/2024 6:55 AM [facility] Comment:eGFR calculated 2020 CKD-EPI equation. Calcium 8.4(L) 8.8 - 10.4 mg/dL 06/17/2024 6:55 AM [facility] Glucose 95 70 - 99 mg/dL 06/17/2024 6:55 AM [facility] Blood VENOUS LINE / Unknown IVAD (Port) / Unknown 06/17/2024 6:16 AM [facility] 06/17/2024 6:27 AM [facility] us Laquita Kelley MD LAB - BLOOD ORDERABLES Final Re sult [facility] [place] [facility] [address] [facility] [address] [facility], [address] [place] [address] * (ABNORMAL) CBC with platelets (06/17/2024 6:16 AM [facility]) Only the most recent of5 resultswithin the time period is included. Pathologist [facility] WBC Count 14.6(H) 4.0 - 11.0 10e3/uL 06/17/2024 6:38 AM [facility] RBC Count 1.97(L) 3.80 - 5.20 10e6/uL 06/17/2024 6:38 AM [facility] Hemoglobin 6.3(LL) 11.7 - 15.7 g/dL 06/17/2024 6:38 AM [facility] Hematocrit 17.9(L) 35.0 - 47.0 % 06/17/2024 6:38 AM [facility] MCV 91 78 - 100 fL 06/17/2024 6:38 AM [facility] MCH 32.0 26.5 - 33.0 pg 06/17/2024 6:38 AM [facility] MCHC 35.2 31.5 - 36.5 g/dL 06/17/2024 6:38 AM [facility] RDW 20.1(H) 10.0 - 15.0 % 06/17/2024 6:38 AM [facility] Platelet Count 468(H) 150 - 450 10e3/uL 06/17/2024 6:38 AM [facility] Blood VENOUS LINE / Unknown IVAD (Port) / Unknown 06/17/2024 6:16 AM [facility] 06/17/2024 6:27 AM [facility] us Laquita Kelley MD LAB - BLOOD ORDERABLES Final Re sult [facility] [place] [facility] [address] [facility], [address] [place] [address] * Troponin T, High Sensitivity (06/16/2024 9:33 PM [facility]) Only the most recent of11 resultswithin the time period is included. Pathologist [facility] Troponin T, High Sensitivity 8 <=14 ng/L 06/16/2024 10:13 PM [facility] Comment: Either a High Sensitivity [...] IVAD (Port) / Unknown 06/16/2024 9:33 PM [facility] 06/16/2024 9:44 PM [facility] us Varghesegiulia Schofield MD LAB - BLOOD ORDERABLE S Final Result LABORATORY [facility] Core Lab [address] [facility], [address] [id number] * Chest XR, PA & LAT (06/16/2024 6:09 PM [facility]) Only the most recent of8 resultswithin the time period is included. Anatomical Region Laterality Modality Chest Digital Radiogra phy 06/16/2024 6:09 PM [facility] Impressions 06/16/2024 6:13 PM [facility] IMPRESSION: Left chest port catheter in stable position. Stable position of right central venous catheter. No airspace opacity, pleural effusion or pneumothorax. Narrative 06/16/2024 6:13 PM [facility] EXAM: XR CHEST 2 VIEWS LOCATION: [facility] DATE: 06/16/2024 INDICATION: chest pain COMPARISON: 06/12/2024 Procedure Note Richar Haines MD - 06/16/2024 EXAM: XR CHEST 2 VIEWS LOCATION: [facility] DATE: 06/16/2024 INDICATION: chest pain COMPARISON: 06/12/2024 IMPRESSION: Left chest port catheter in stable position. Stable positionof right central venous catheter. No airspace opacity, pleural effusion orpneumothorax. us Varghese Cipriano Fariasickson MD IMG DIAGNOSTIC IMAGIN G ORDERABLES Final Result * Adult Type and Screen (06/16/2024 5:37 PM [facility]) Only the most recent of3 resultswithin the time period is included. Pathologist [facility] ABO/RH(D) A POS 06/16/2024 5:08 PM [facility] Antibody Screen Negative Negative 06/16/2024 5:08 PM [facility] Comment:Current antibody scr een is negative. Patient has a history of antibody(ies). A delay in compatible red blood cells may occur. SPECIMEN EXPIRATION DATE [id number] 06/16/2024 5:08 PM [facility] Blood BLOOD SPECIMEN / Unknown Venipuncture / Unknown 06/16/2024 5:37 PM [facility] 06/16/2024 5:46 PM [facility] Varghesegiulia Schofield MD LAB - BLOOD BANK TEST ORDER Final Result Performing Organization Address City/[facility]/ZIP Co de Phone Number U BLOOD BANK [address] [place] [address] * (ABNORMAL) Prolactin (06/16/2024 5:37 PM [facility]) [facility] Prolactin 55(H) 5 - 23 ng/mL 06/16/2024 6:24 PM [facility] Blood BLOOD SPECIMEN / Unknown Venipuncture / Unknown 06/16/2024 5:37 PM [facility] 06/16/2024 5:46 PM [facility] Abimael Schofield MD LAB - BLOOD ORDERABLE S Final Result [facility] [place] [facility] [address] [facility], [address] [place] [address] * Blood Culture Peripheral Blood (06/16/2024 5:37 PM [facility]) Only the most recent of3 resultswithin the time period is included. [facility] Culture No Growth 06/21/2024 6:47 PM [facility] Blood BLOOD SPECIMEN / Unknown Venipuncture / Unknown 06/16/2024 5:37 PM [facility] 06/16/2024 5:47 PM [facility] us Abimael Schofield MD LAB - MICRO GENERAL O RDERABLES Final Result Performing Organization Address [facility]/ZIP Co de Phone Number [facility] Inf. Diseases Diag. Lab [address] [facility], [address] [place] [address] * EKG 12 lead (06/16/2024 4:55 PM [facility]) Only the most recent of2 resultswithin the time period is included. Systolic Blood Pressure mmHg RADIOLOGY RESULTS Diastolic Blood Pressure mmHg RADIOLOGY RESULTS Ventricular Rate 122 BPM RAD IOLOGY RESULTS Atrial Rate 122 BPM RADIOLOG Y RESULTS HI Interval 128 ms RADIOLOG Y RESULTS QRS Duration 74 ms RADIOLO GY RESULTS QT 314 ms RADIOLOGY RESULTS QTc 447 ms RADIOLOGY RESULTS P [place] 63 degrees RADIOLOGY RESULTS R AXIS 83 degrees RADIOLOGY RESULTS T [place] 29 degrees RADIOLOGY RESULTS Interpretation ECG Sinus tachycardia Otherwise normal ECG Unconfirmed report - interpretation of this ECG is computer generated - see medical record for final interpretation Confirmed by - EMERGENCY ROOM, PHYSICIAN ([id number]), industrial editor KARLA WILLIAMSON ([id number]) on 06/17/2024 6:56:59 AM RADIOLOGY RESULTS 06/16/2024 4:55 PM [facility] 06/17/2024 6:56 AM [facility] us Varghesegiulia Schofield MD ECG ORDERABLES Edite d Result - Final Performing Organization Address City/[facility]/ZIP Co de Phone Number RADIOLOGY RESULTS * XR Chest Port 1 View (06/14/2024 8:46 AM [facility]) Anatomical Region Laterality Modality Chest Digital Radiogra phy Impressions 06/14/2024 8:59 AM [facility] Impression: Further increase in ill-defined opacity projecting over the right lower lung concerning for pneumonia. MARIO ALBERTO BLACKWOOD MD Narrative 06/14/2024 8:59 AM [facility] Exam: XR CHEST PORT 1 VIEW, 06/14/2024 [...] concerning for pneumonia. MARIO ALBERTO BLACKWOOD MD [facility] Marly Allen MD IMG DIAGNOSTIC IM AGING ORDERABLES Final Result * Respiratory Panel PCR (06/12/2024 9:34 PM [facility]) Adenovirus Not Detected Not Detected 06/12/2024 11:53 PM [facility] Coronavirus Not Detected Not Detected 06/12/2024 11:53 PM [facility] Comment:This test detects Co ronavirus 229E, HKU1, NL63 and OC43 but does not distinguish between them. It does not detect MERS ( Respiratory Syndrome), SARS (Severe Acute Respiratory Syndrome) or 2019-nCoV (Novel 2019) Coronavirus. Human Metapneumovirus Not Detected Not Detected 06/12/2024 11:53 PM [facility] Human Rhin/Enterovirus Not Detected Not Detected 06/12/2024 11:53 PM [facility] Influenza A Not Detected Not Detected 06/12/2024 11:53 PM [facility] Influenza A, H1 Not Detected Not Detected 06/12/2024 11:53 PM [facility] Influenza A 2009 H1N1 Not Detected Not Detected 06/12/2024 11:53 PM [facility] Influenza A, H3 Not Detected Not Detected 06/12/2024 11:53 PM [facility] Influenza B Not Detected Not Detected 06/12/2024 11:53 PM [facility] Parainfluenza Virus 1 Not Detected Not Detected 06/12/2024 11:53 PM [facility] Parainfluenza Virus 2 Not Detected Not Detected 06/12/2024 11:53 PM [facility] Parainfluenza Virus 3 Not Detected Not Detected 06/12/2024 11:53 PM [facility] Parainfluenza Virus 4 Not Detected Not Detected 06/12/2024 11:53 PM [facility] Respiratory Syncytial Virus A Not Detected Not Detected 06/12/2024 11:53 PM [facility] Respiratory Syncytial Virus B Not Detected Not Detected 06/12/2024 11:53 PM [facility] Chlamydia Pneumoniae Not Detected Not Detected 06/12/2024 11:53 PM [facility] Mycoplasma Pneumoniae Not Detected Not Detected 06/12/2024 11:53 PM [facility] Swab NASOPHARYNGEAL STRUCTURE / Unknown Non-blood Collection / Unknown 06/12/2024 9:34 PM [facility] 06/12/2024 9:47 PM [facility] Narrative [facility] - 06/12/2024 11:53 PM [facility] The ePlex Respiratory Panel is a qualitative nucleic acid, multiplex, in vitro diagnostic test for the simultaneous detection and identification of multiple respiratory viral and bacterial nucleic acids in nasopharyngeal swabs collected in viral transport media from individual exhibiting signs and symptoms of respiratory infection. The assay has received FDA approval for the testing of nasopharyngeal ([employer]TON [employer]) swabs only. This test is used for clinical purposes and should not be regarded as investigational or for research. This laboratory is certified under the Clinical Laboratory Improvement Amendments of 1988 (CLIA-88) as qualified to perform high complexity clinical laboratory testing. Abdelrahman Goddard MD LAB - MICRO GENERAL ORDERABLES Final Result [facility] Inf. Diseases Diag. Lab [address] [facility], [address] [place] [address] * (ABNORMAL) Blood gas venous (06/12/2024 7:17 PM [facility]) pH Venous 7.38 7.32 - 7.43 06/12/2024 7:40 PM [facility] pCO2 Venous 42 40 - 50 mm Hg 06/12/2024 7:40 PM [facility] pO2 Venous 35 25 - 47 mm Hg 06/12/2024 7:40 PM [facility] Bicarbonate Venous 24 21 - 28 mmol/L 06/12/2024 7:40 PM [facility] Base Excess/Deficit Venous -0.9 -3.0 - 3.0 mmol/L 06/12/2024 7:40 PM [facility] FIO2 21 JARET 06/12/2024 7:40 PM [facility] Oxyhemoglobin Venous 61(L) 70 - 75 % 06/12/2024 7:40 PM [facility] O2 Sat, Venous 63.9(L) 70.0 - 75.0 % 06/12/2024 7:40 PM [facility] Blood, venous VENOUS LINE / Unknown Venipuncture / Unknown 06/12/2024 7:17 PM [facility] 06/12/2024 7:30 PM [facility] Narrative [facility] - 06/12/2024 7:40 PM [facility] In healthy individuals, oxyhemoglobin (O2Hb) and oxygen saturation (SO2) are approximately equal. In the presence of dyshemoglobins, oxyhemoglobin can be considerably lower than oxygen saturation. us Abdelrahman Goddard MD LAB - BLOOD ORDERABLES Final R esult [facility] [place] [facility] [address] [facility] [place] [address], [facility] * ECG 12-LEAD WITH MUSE (LHE) (06/11/2024 9:04 PM [facility]) Only the most recent of15 resultswithin the time period is included. Systolic Blood Pressure mmHg RADIOLOGY RESULTS Diastolic Blood Pressure mmHg RADIOLOGY RESULTS Ventricular Rate 102 BPM RAD IOLOGY RESULTS Atrial Rate 102 BPM RADIOLOG Y RESULTS HI Interval 158 ms RADIOLOG Y RESULTS QRS Duration 78 ms RADIOLO GY RESULTS QT 348 ms RADIOLOGY RESULTS QTc 453 ms RADIOLOGY RESULTS P [place] 39 degrees RADIOLOGY RESULTS R AXIS 66 degrees RADIOLOGY RESULTS T [place] 33 degrees RADIOLOGY RESULTS Interpretation ECG Sinus tachycardia Nonspecific T wave abnormality Abnormal ECG When compared with ECG of 05-Jun-2024 11:40, No significant change was found Confirmed by SEE ED PROVIDER NOTE FOR, ECG INTERPRETATION ([id number]), industrial editor SELMA GARRISON ([id number]) on 06/11/2024 9:05:27 PM RADIOLOGY RESULTS 06/11/2024 9:04 PM [facility] 06/11/2024 9:05 PM [facility] us Deshawn Arredondo MD ECG ORDERABLES Edited Resu lt - Final RADIOLOGY RESULTS * Influenza A/B, RSV and SARS-CoV2 PCR (COVID-19) Nasopharyngeal (06/07/2024 1:15 PM [facility]) Only the most recent of3 resultswithin the time period is included. Influenza A PCR Negative Negative 06/07/2024 3:32 PM [facility] Influenza B PCR Negative Negative 06/07/2024 3:32 PM [facility] RSV PCR Negative Negative 06/07/2024 3:32 PM [facility] SARS CoV2 PCR Negative Negative 06/07/2024 3:32 PM [facility] Comment:NEGATIVE: SARS-CoV-2 (COVID-19) RNA not detected, presumed negative. Swab NASOPHARYNGEAL STRUCTURE / Unknown Non-blood Collection / Unknown 06/07/2024 1:15 PM [facility] 06/07/2024 1:36 PM [facility] Narrative [facility] - 06/07/2024 3:32 PM [facility] Testing was performed using the Xpert Xpress CoV2/Flu/RSV Assay on the imgfave GeneXpert Instrument. This test should be ordered [...] management. This test was validated by the [facility] ALTHIA. These laboratories are certified under the Clinical Laboratory Improvement Amendments of 1988 (CLIA-88) as qualified to perfom high complexity laboratory testing. Case Samuel MD LAB - MICRO GENERAL ORDER SYD Final Result [facility] Inf. Diseases Diag. Lab [address] [facility], [address] [place] [address] * HGB Eval Reflex to ELP or RBC Solubility (05/29/2024 11:23 AM [facility]) Alpha Globin (HBA1 and HBA2) DD Bill Billed 05/31/2024 2:46 PM [facility] Comment: Performed By: [facility] [address] [place] [address] Recep: Devon Healy MD, PhD CLIA Number: [id number] Blood VENOUS LINE / Unknown IVAD (Port) / Unknown 05/29/2024 11:23 AM [facility] 05/29/2024 11:30 AM [facility] Case Samuel MD LAB CHARGE PERFORMABLES F inal Result [facility] [address] [place] [address], [facility] [phone] * Bill Only- Sickle Solubility Bill (05/29/2024 11:23 AM [facility]) Sickle Solubility Reflex Bill Billed 05/31/2024 2:46 PM [facility] Comment: Performed By: [facility] [address] [place] [address] Recep: Devon Healy MD, PhD CLIA Number: [id number] Blood VENOUS LINE / Unknown IVAD (Port) / Unknown 05/29/2024 11:23 AM [facility] 05/29/2024 11:30 AM [facility] Case Samuel MD LAB CHARGE PERFORMABLES F inal Result [facility] [address] [place] [address], [facility] [phone] * Genotype Red Blood Cell (05/29/2024 11:23 AM [facility]) See Scanned Result GENOTYPE RED BLOOD CELL-Scanned 05/31/2024 10:16 AM [facility] Blood VENOUS LINE / Unknown IVAD (Port) / Unknown 05/29/2024 11:23 AM [facility] 05/29/2024 11:29 AM [facility] Case Samuel MD LAB - BLOOD ORDERABLES Fi nal Result Performing Organization Address [facility]/[place] [address], [facility] [phone] * (ABNORMAL) HGB Eval Reflex to ELP or RBC Solubility (05/29/2024 11:23 AM [facility]) Hemoglobin A 15.0(L) 95.0 - 97.9 % 05/31/2024 2:46 PM [facility] Hemoglobin A2 3.0 2.0 - 3.5 % 05/31/2024 2:46 PM [facility] Hemoglobin F 10.8(H) 0.0 - 2.1 % 05/31/2024 2:46 PM [facility] Hemoglobin S 71.2(H) 0.0 - 0.0 % 05/31/2024 2:46 PM [facility] Hemoglobin C 0.0 0.0 - 0.0 % 05/31/2024 2:46 PM [facility] Hemoglobin E 0.0 0.0 - 0.0 % 05/31/2024 2:46 PM [facility] Hemoglobin - Other 0.0 0.0 - 0.0 % 05/31/2024 2:46 PM [facility] Hemoglobin Evaluation See Note 05/31/2024 2:46 PM [facility] Comment: Impression: Hb S present Laboratory [...] by Alpha Globin (HBA1 and HBA2) Deletion/Duplication ([facility] test #4499171) should be considered. Hb S/beta-plus thalassemia is typically characterized by more Hb S than Hb A with the presence of microcytosis. If microcytosis is present and Hb S/beta-plus thalassemia is suspected, Beta Globin (HBB) Sequencing ([facility] test #8437451) is suggested. Hemoglobin analysis should be offered [...] developed and its performance characteristics determined by [facility]. It has not been cleared or approved by the U.S. Food and Drug Administration. This test was performed in a CLIA-certified laboratory and is intended for clinical purposes. Sickle Cell Solubility Reflex Positive(A) 05/31/2024 2:46 PM [facility] Comment: INTERPRETIVE INFORMATION: Sickle Cell Solubility Reflex Not Performed: Solubility testing for Hemoglobin S not indicated. 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 Additional charges apply. Conf Previous: Positive for Hemoglobin S by HPLC. Solubility testing performed previously and not repeated with this submission. Hgb Capillary Electrophoresis Reflex Performed 05/31/2024 2:46 PM [facility] Comment: INTERPRETIVE INFORMATION: Hgb Capillary Electrophoresis Reflex Not Performed: Confirmation by Capillary Electrophoresis not indicated. Performed: Results confirmed by Capillary Electrophoresis. Additional charges apply. Conf Previous: Capillary Electrophoresis confirmation performed as part of a previous submission. Confirmation not repeated with this submission. Performed By: [facility] [address] [place] [address] Recep: Devon Healy MD, PhD CLIA Number: [id number] Blood VENOUS LINE / Unknown IVAD (Port) / Unknown 05/29/2024 11:23 AM [facility] 05/29/2024 11:30 AM [facility] Case Samuel MD LAB - BLOOD ORDERABLES Fi nal Result Performing Organization Address City/[facility]/ZIP Co de Phone Number [facility] [address] [place] [address], [facility] [phone] * (ABNORMAL) Ferritin (05/29/2024 11:23 AM [facility]) Ferritin 1,559(H) 6 - 175 ng/mL 05/29/2024 12:43 PM [facility] - CORE LAB Blood VENOUS LINE / Unknown IVAD (Port) / Unknown 05/29/2024 11:23 AM [facility] 05/29/2024 11:29 AM [facility] us Case Samuel MD LAB - BLOOD ORDERABLES Fi nal Result [facility] - CORE LAB [facility] Clinics and Surgery [address] 1[address] [place] [address] * Urine Culture (05/29/2024 11:23 AM [facility]) Culture <10,000 CFU/mL Mixture of Urogenital Vickie 05/30/2024 9:45 AM [facility] Urine URINE SPECIMEN OBTAINED BY CLEAN CATCH PROCEDURE / Unknown Non-blood Collection / Unknown 05/29/2024 11:23 AM [facility] 05/29/2024 11:41 AM [facility] us Case Samuel MD LAB - MICRO GENERAL ORDER SYD Final Result [facility] Inf. Diseases Diag. Lab [address] [facility], [address] [place] [address] * (ABNORMAL) Manual Differential (05/29/2024 12:53 AM [facility]) Only the most recent of8 resultswithin the time period is included. Pathologist [facility] % Neutrophils 54 % JARET 05/29/2024 1:58 AM [facility] % Lymphocytes 34 % JARET 05/29/2024 1:58 AM [facility] % Monocytes 10 % JARET 05/29/2024 1:58 AM [facility] % Eosinophils 1 % JARET 05/29/2024 1:58 AM [facility] % Basophils 1 % JARET 05/29/2024 1:58 AM [facility] Absolute Neutrophils 8.4(H) 1.6 - 8.3 10e3/uL JARET 05/29/2024 1:58 AM [facility] Absolute Lymphocytes 5.3 0.8 - 5.3 10e3/uL JARET 05/29/2024 1:58 AM [facility] Absolute Monocytes 1.6(H) 0.0 - 1.3 10e3/uL JARET 05/29/2024 1:58 AM [facility] Absolute Eosinophils 0.2 0.0 - 0.7 10e3/uL JARET 05/29/2024 1:58 AM [facility] Absolute Basophils 0.2 0.0 - 0.2 10e3/uL JARET 05/29/2024 1:58 AM [facility] NRBCs per 100 WBC 3 % JARET 05/29/2024 1:58 AM [facility] Absolute NRBCs 0.5 10e3/uL JARET 05/29/2024 1:58 AM [facility] RBC Morphology Confirmed RBC Indices JARET 05/29/2024 1:58 AM [facility] Platelet Assessment Automated Count Confirmed. Platelet morphology is normal. Automated Count Confirmed. Platelet morphology is normal. JARET 05/29/2024 1:58 AM [facility] Polychromasia Moderate(A) None Seen JARET 05/29/2024 1:[address] [facility] Sickle Cells Moderate(A) None Seen [facility] 05/29/2024 1:[address] [facility] Blood VENOUS LINE / Unknown Venipuncture / Unknown 05/29/2024 12:53 AM [facility] 05/29/2024 12:58 AM [facility] us Lenin Smith MD LAB - BLOOD ORDERABLES Final Result [facility] [address] [place] [address], [facility] * IR Procedure Note (05/25/2024 2:54 PM [facility]) Narrative Myron Michel MD - 05/25/2024 2:54 PM [facility] Myron Michel MD 05/25/2024 2:55 PM [facility] Procedure: IR Procedure Note Date/Time: [...] the procedure a time out was called [place] Protocol: the Joint Commission [place] Protocol was followed Preparation: Patient was prepped and draped in usual sterile fashion ANESTHESIA Anesthesia: Local infiltration Local Anesthetic: Lidocaine 1% without epinephrine SEDATION Patient Sedated: Yes Sedation Type: Moderate (conscious) sedation Sedation: Fentanyl and midazolam Vital signs: Vital signs monitored during sedation See dictated procedure note for full details. Findings: Successful bilateral port placement apheresis on the right, 6 nauruan smart port on the left Specimens: none Procedural Complications: None Condition: Stable Plan: 1 hour bedrest then okay to discharge PROCEDURE Describe Procedure: Successful bilateral port placement apheresis on the right, 6 nauruan smart port on the left Patient Tolerance: Patient tolerated the procedure well with no immediate complications Length of time physician/provider present for 1:1 monitoring during sedation: 83-97 min us Myron Michel MD PROCEDURE/MINOR SURGICAL ORDERA BLES Final Result * IR Chest Port Placement > 5 Yrs of Age (05/25/2024 2:47 PM [facility]) Only the most recent of2 resultswithin the time period is included. Anatomical Region Laterality Modality Chest Radio Fluoroscop y Impressions 05/25/2024 5:26 PM [facility] IMPRESSION: Insertion of right-sided apheresis chest port, [...] mg Versed Sedation time: 97 minutes ATTENDING [id number] SEDATION TIME: less than 5 minutes. Access [...] placed: BD PowerFlow apheresis port Catheter size (Panamanian): 9.6 Lumens: Single-lumen Power injectable: Yes Catheter [...] JASWINDER COOPER MD Narrative 05/25/2024 5:26 PM [facility] PROCEDURE: Venous port placement Procedural Personnel Attending [...] mg Versed Sedation time: 97 minutes ATTENDING [id number] SEDATION TIME: less than 5 minutes. Access [...] placed: BD PowerFlow apheresis port Catheter size (Panamanian): 9.6 Lumens: Single-lumen Power injectable: Yes Catheter [...] findings. JASWINDER COOPER MD Case Samuel MD [facility] IR ORDERABLES Final R esult * HCG qualitative urine (05/25/2024 12:03 PM [facility]) Only the most recent of2 resultswithin the time period is included. hCG Urine Qualitative Negative Negative JARET 05/25/2024 12:34 PM [facility] Comment:This test is for scr eening purposes. Results should be interpreted along with the clinical picture. Confirmation testing is available if warranted by ordering [id number], HCG Quantitative . Urine MID-STREAM URINE SPECIMEN / Unknown Non-blood Collection / Unknown 05/25/2024 12:03 PM [facility] 05/25/2024 12:19 PM [facility] us Jaswinder Cooper MD LAB - URINE ORDERABLES Liss bola Result [facility] [address] [facility] Unit [facility], Room [address] [address] * CT Chest Pulmonary Embolism w Contrast (05/23/2024 9:33 PM [facility]OWER) Only the most recent of2 resultswithin the time period is included. Anatomical Region Laterality Modality Chest, SUBRAD CT BODY, UMP CT CHEST Computed Tomography 05/23/2024 9:33 PM [facility] Impressions 05/23/2024 10:12 PM [facility] IMPRESSION: 1. Bilateral pulmonary nodules stable since [...] as noted above. Narrative 05/23/2024 10:12 PM [facility] EXAM: CT CHEST PULMONARY EMBOLISM W CONTRAST LOCATION: [facility] DATE: 05/23/2024 INDICATION: patient with sickle cell. acute chest pain similar to pe in the past. COMPARISON: Chest x-ray 05/22/2024, CTA chest 05/04/2024 and 03/15/2024. Report of CT chest from [facility]/[employer] from 03/13/2023 is also available. TECHNIQUE: CT [...] CT CHEST PULMONARY EMBOLISM W CONTRAST LOCATION: [facility] DATE: 05/23/2024 INDICATION: patient with sickle cell. acute chest pain similar to pe inthe past. COMPARISON: Chest x-ray 05/22/2024, CTA chest 05/04/2024 and 03/15/2024.Report of CT chest from [facility]/[employer] from 03/13/2023 is alsoavailable. TECHNIQUE: CT chest [...] terminal pro BNP outpatient (05/23/2024 9:02 PM [facility]OWER) N Terminal Pro BNP Outpatient 74 [id number] - 450 pg/mL 05/23/2024 9:[address] [facility] Comment: Reference range shown and [...] Unknown Venipuncture / Unknown 05/23/2024 9:02 PM [facility] 05/23/2024 9:10 PM [facility] us Marilia Summers MD LAB - BLOOD ORDERABLES Final Result [facility] [address] [place] [address], [place] * Extra Green Top (Ranger Heparin) Tube (05/20/2024 9:09 AM [facility]) Hold Specimen JIC 05/20/2024 10:[address] [facility] Blood VENOUS LINE / Unknown Venipuncture / Unknown 05/20/2024 9:09 AM [facility] 05/20/2024 9:14 AM [facility] us Deshawn Arredondo MD LAB - BLOOD ORDERABLES Liss l Result Performing Organization Address [facility] de Phone Number [facility] [address] Y[place] [address] * (ABNORMAL) Hepatic function panel (05/19/2024 3:05 AM [facility]) Only the most recent of4 resultswithin the time period is included. Protein Total 7.9 6.4 - 8.3 g/dL 05/19/2024 3:37 AM [facility] Albumin 4.3 3.5 - 5.2 g/dL 05/19/2024 3:37 AM [facility] Bilirubin Total 2.6(H) <=1.2 mg/dL 05/19/2024 3:37 AM [facility] Alkaline Phosphatase 128 40 - 150 U/L 05/19/2024 3:37 AM [facility] AST 67(H) 0 - 45 U/L 05/19/2024 3:37 AM [facility] ALT 39 0 - 50 U/L 05/19/2024 3:37 AM [facility] Bilirubin Direct 0.65(H) 0.00 - 0.30 mg/dL 05/19/2024 3:37 AM [facility] Blood VENOUS LINE / Unknown Venipuncture / Unknown 05/19/2024 3:05 AM [facility] 05/19/2024 3:18 AM [facility] us Marilia Summers MD LAB - BLOOD ORDERABLES Final Result Performing Organization Address [facility]/ZIP Co de Phone Number [facility] [address] [place] [address], [facility] * (ABNORMAL) CK total (05/19/2024 3:05 AM [facility]) CK 240(H) 26 - 192 U/L 05/19/2024 3:37 AM [facility] Blood VENOUS LINE / Unknown Venipuncture / Unknown 05/19/2024 3:05 AM [facility] 05/19/2024 3:18 AM [facility] us Marilia Summers MD LAB - BLOOD ORDERABLES Final Result Performing Organization Address City/[facility]/ZIP Co de Phone Number [facility] [address] [place] [address], [facility] * Extra Purple Top Tube (05/13/2024 6:17 PM [facility]) Hold Specimen JIC 05/13/2024 7:[address] [facility] Blood STRUCTURE OF RIGHT UPPER LIMB / Unknown Venipuncture / Unknown 05/13/2024 6:17 PM [facility] 05/13/2024 6:23 PM [facility] us Shaheen Unger MD LAB - BLOOD ORDERABLES Final Res ult Performing Organization Address [facility] Co de Phone Number [facility] [address] [place] [address], [facility] * (ABNORMAL) Vitamin D deficiency screening (04/28/2024 1:50 AM [facility]) Vitamin D, Total (25-Hydroxy) 8(L) 20 - 50 ng/mL 05/01/2024 6:42 PM [facility] Comment:severe deficiency Blood BLOOD SPECIMEN / Unknown Venipuncture / Unknown 04/28/2024 1:50 AM [facility] 04/28/2024 1:53 AM [facility] Narrative LABORATORY - 05/01/2024 6:42 PM [facility] Season, race, dietary intake, and treatment affect the concentration of [id number] D. Values may decrease during winter months and increase during summer months. Vitamin D determination is routinely performed by an immunoassay specific for 25 hydroxyvitamin D3. If an individual is on vitamin D2(ergocalciferol) supplementation, please specify 25 [place] vitamin D2 and D3 level determination by LCMSMS test VITD23. us Case Samuel MD LAB - BLOOD ORDERABLES Fi nal Result [facility] [address] [facility], [address] [place] [id number] * CT Pelvis Bone wo Contrast (04/19/2024 3:22 AM [facility]) Anatomical Region Laterality Modality Abdomen/Pelvis, SUBRAD CT MS K, UMP CT ABDOMEN PELVIS, SUBRAD CT BODY, RAD CT Computed Tomography 04/19/2024 3:22 AM [facility] Impressions 04/19/2024 4:06 AM [facility] IMPRESSION: 1. Sclerosis involving the left femoral [...] right femoral head. Narrative 04/19/2024 4:06 AM [facility] EXAM: CT PELVIS BONE WO CONTRAST LOCATION: [facility] DATE: 04/19/2024 INDICATION: Eval L hip [...] EXAM: CT PELVIS BONE WO CONTRAST LOCATION: [facility] DATE: 04/19/2024 INDICATION: Eval L hip [...] Extra Red Top Tube (04/08/2024 10:22 PM [facility] GROWER) [facility] Hold Specimen [facility] 04/08/2024 11:[address] [facility] Blood STRUCTURE OF LEFT UPPER LIMB / Unknown Venipuncture / Unknown 04/08/2024 10:22 PM [facility] 04/08/2024 10:30 PM [facility] Deshawn Arredondo MD LAB - BLOOD ORDERABLES Liss l Result [facility] [address] [place] [address], [place] * Extra Blue Top Tube (04/08/2024 10:22 PM [facility]) Hold Specimen JIC 04/08/2024 11:[address] [facility] Blood STRUCTURE OF LEFT UPPER LIMB / Unknown Venipuncture / Unknown 04/08/2024 10:22 PM [facility] 04/08/2024 10:30 PM [facility] Deshawn Arredondo MD LAB - BLOOD ORDERABLES Liss l Result Performing Organization Address [facility] Co de Phone Number [facility] [address] [place] [place] [address], [facility] * (ABNORMAL) D dimer quantitative (04/06/2024 12:45 AM [facility] GR[facility]) [facility] D-Dimer Quantitative 1.25(H) 0.00 - 0.50 ug/mL FEU 04/06/2024 1:[address] [facility] Blood BLOOD SPECIMEN / Unknown Venipuncture / Unknown 04/06/2024 12:45 AM [facility] 04/06/2024 12:52 AM [facility] [facility] - 04/06/2024 1:06 AM [facility] This D-dimer assay is intended for use in conjunction with a clinical pretest probability assessment model to exclude pulmonary embolism (PE) and deep venous thrombosis (DVT) in outpatients suspected of PE or DVT. The cut-off value is 0.50 ug/mL FEU. Guille Davis DO LAB - BLOOD ORDERABLES Fin al Result Performing Organization Address City/[facility]/ZIP Co de Phone Number [facility] [address] [place] [address], [facility] from Last 3 Months Insurance [place] [id number] [place] [id number] [place] Advance Directives For more information, please contact: [phone] * Full Code (Latest Code Status on [...] patie nt/ legal decision maker Care Teams [employer] Lieutenant Relationship Specialty Start Date End Date Veronica Joseph MD [address] [place] [address] PCP - General Family Medicine 06/18/24 Mor Ramsey Medical Student 04/03/24 Case Samuel MD [address] [place] [address] [address], [address] [place] [address] Assigned Pediatric Specialist Provider 05/18/24 Juhi Benson, RN Specialty [employer] Hematology & Oncology 05/29/24
--- OUTSIDE RECORDS SUMMARY | 2024-06-24 20:57 | XMS_ITS | Encounter Summary ---
Author Organization [facility] Address [address] [place] [id number] Care Team Providers Care Community Support Associate Name Role Phone [employer] Unavailable Unavailable Case Samuel MD Unavailable [phone] Juhi Benson RN Unavailable Unavailable Veronica Joseph MD Primary Care Provider [phone] Reason for Visit * Reason Comments Sickle Cell Pain Crisis Pt reports pain in her back and b/l lower extremities. Encounter Details Date Type Department Care Team (Late st Contact Info) Description 06/24/2024 9:28 AM EMERGENCY MEDICAL TECHNICIAN - 06/24/2024 1:05 PM EMERGENCY MEDICAL TECHNICIAN Emergency [facility] Emergency Department [address] [place] [phone] Richar Mahajan MD [address] [place] [phone] Sickle cell disease with crisis (H) Discharge [place] Yes 06/20/2024 Are you worried [...] file Legal Sex Female 8:25 AM EMERGENCY MEDICAL TECHNICIAN Gender Identity Not on file Sexual Orientation Not on file documented as of this encounter Last Filed Vital Signs Vital Sign Reading Time Taken Comments Blood Pressure 111/67 06/24/2024 11:56 AM EMERGENCY MEDICAL TECHNICIAN Pulse 101 06/24/2024 12:11 PM EMERGENCY MEDICAL TECHNICIAN Temperature 36.9 C (98.4 F) 06/24/2024 9:26 AM EMERGENCY MEDICAL TECHNICIAN Respiratory Rate 16 06/24/2024 9:26 AM EMERGENCY MEDICAL TECHNICIAN Oxygen Saturation 100% 06/24/2024 12:11 PM EMERGENCY MEDICAL TECHNICIAN Inhaled Oxygen Concentration - - Weight 52.2 kg (115 lb) 06/24/2024 9:26 AM EMERGENCY MEDICAL TECHNICIAN Height 154.9 cm (5' 1) 06/24/2024 9:26 AM EMERGENCY MEDICAL TECHNICIAN Body Mass Index 21.73 06/24/2024 9:26 AM EMERGENCY MEDICAL TECHNICIAN documented in this encounter Discharge Instructions * Discharge Instructions* Richar Mahajan MD - 06/24/2024 12:57 PM EMERGENCY MEDICAL TECHNICIAN Home. Continue home care. Follow up with [...] Negative Ketones Urine Negative Negative mg/dL Specific [place] Urine 1.009 1.003 - 1.035 Blood Urine [...] Status --------- ------ CBC with platelets and d...[[id number]] Abnormal Final result Please view results for these tests on the individual orders. GENCY MEDICAL TECHNICIAN * Attachments The following attachments cannot be sent through Care Everywhere. * Sickle Cell Crisis (Norwegian) documented in this encounter Medications at Time [...] 05/01/2024 naloxone (NARCAN) 4 MG/0.1ML nasal spray [place] 1 spray (4 mg) into one nostril [...] extremities. Triage Assessment (Adult) Row Name 06/24/24 0965 Triage Assessment Airway WDL WDL Respiratory WDL Respiratory WDL WDL Skin Circulation/Temperature WDL Skin Circulation/Temperature WDL WDL Cardiac WDL Cardiac WDL WDL Peripheral/Neurovascular WDL Peripheral Neurovascular WDL WDL Cognitive/Neuro/Behavioral WDL Cognitive/Neuro/Behavioral WDL WDL GENCY MEDICAL TECHNICIAN documented in this encounter Plan of Treatment Not on file documented as of this encounter Goals Goal Patient Goal Type Associated Problems Recent Progress Patient-Stated? Author Pain Management General On track( 025 12:40 PM EMERGENCY MEDICAL TECHNICIAN) Yes Juhi Benson, RN Note: Goal [...] REFLEX TO CULTURE STAT 06/24/2024 10:15 AM EMERGENCY MEDICAL TECHNICIAN CBC WITH PLATELETS AND DIFFERENTIAL STAT 06/24/2024 10:11 AM EMERGENCY MEDICAL TECHNICIAN CBC WITH PLATELETS & DIFFERENTIAL STAT 06/24/2024 10:11 AM EMERGENCY MEDICAL TECHNICIAN RETICULOCYTE COUNT STAT 06/24/2024 10 :11 AM EMERGENCY MEDICAL TECHNICIAN INR STAT 06/24/2024 10:11 AM EMERGENCY MEDICAL TECHNICIAN PARTIAL THROMBOPLASTIN TIME STAT 06/24/2024 10:11 AM EMERGENCY MEDICAL TECHNICIAN MAGNESIUM STAT 06/24/2024 10:11 AM EMERGENCY MEDICAL TECHNICIAN HCG QUALITATIVE STAT 06/24/2024 10:11 AM EMERGENCY MEDICAL TECHNICIAN COMPREHENSIVE METABOLIC PANEL STAT 06/24/2024 10:11 AM EMERGENCY MEDICAL TECHNICIAN documented in this encounter Results * (ABNORMAL) UA with Microscopic reflex to Culture (06/24/2024 10:15 AM EMERGENCY MEDICAL TECHNICIAN) Color Urine Light Yellow Colorless, Straw, Light Yellow, Yellow 06/24/2024 10:25 AM EMERGENCY MEDICAL TECHNICIAN [facility] Appearance Urine Clear Clear 06/25/19 10:25 AM EMERGENCY MEDICAL TECHNICIAN [facility] Glucose Urine Negative Negative mg/dL 06/24/2024 10:25 AM EMERGENCY MEDICAL TECHNICIAN [facility] Bilirubin Urine Negative Negative 10:25 AM EMERGENCY MEDICAL TECHNICIAN [facility] Ketones Urine Negative Negative mg/dL 06/24/2024 10:25 AM EMERGENCY MEDICAL TECHNICIAN [facility] Specific [place] Urine 1.009 1.003 - 1.035 06/24/2024 10:25 AM EMERGENCY MEDICAL TECHNICIAN [facility] Blood Urine Negative Negative 06/24/2024 10:25 AM EMERGENCY MEDICAL TECHNICIAN [facility] pH Urine 7.5(H) 5.0 - 7.0 06/24/2024 10:25 AM EMERGENCY MEDICAL TECHNICIAN [facility] Protein Albumin Urine Negative Negative mg/dL 06/24/2024 10:25 AM EMERGENCY MEDICAL TECHNICIAN [facility] Urobilinogen Urine Normal Normal, 2.0 mg/dL 06/24/2024 10:25 AM EMERGENCY MEDICAL TECHNICIAN [facility] Nitrite Urine Negative Negative 06/24/2024 10:25 AM EMERGENCY MEDICAL TECHNICIAN [facility] Leukocyte Esterase Urine Negative Negative 06/24/2024 10:25 AM EMERGENCY MEDICAL TECHNICIAN [facility] RBC Urine <1 <=2 /HPF 06/24/2024 10:25 AM EMERGENCY MEDICAL TECHNICIAN [facility] WBC Urine <1 <=5 /HPF 06/24/2024 10:25 AM EMERGENCY MEDICAL TECHNICIAN [facility] Squamous Epithelials Urine 11(H) <=1 /HPF 06/24/2024 10:25 AM EMERGENCY MEDICAL TECHNICIAN [facility] Hyaline Casts Urine 1 <=2 /LPF 06/24/2024 10:25 AM EMERGENCY MEDICAL TECHNICIAN [facility] Urine MID-STREAM URINE SPECIMEN / Unknown Non-blood Collection / Unknown 06/24/2024 10:15 AM EMERGENCY MEDICAL TECHNICIAN 06/24/2024 10:20 AM EMERGENCY MEDICAL TECHNICIAN Narrative [facility] - 06/24/2024 10:25 AM EMERGENCY MEDICAL TECHNICIAN Urine Culture not indicated Richar Mahajan MD LAB - URINE ORDERABLES Liss l Result [facility] [address] [facility], [address] [place] [address], [facility] * (ABNORMAL) CBC with platelets and differential (06/24/2024 10:11 AM EMERGENCY MEDICAL TECHNICIAN) [facility] Signature WBC Count 7.8 4.0 - 11.0 10e3/uL 06/24/2024 10:28 AM EMERGENCY MEDICAL TECHNICIAN [facility] RBC Count 2.49(L) 3.80 - 5.20 10e6/uL 06/24/2024 10:28 AM EMERGENCY MEDICAL TECHNICIAN [facility] Hemoglobin 7.9(L) 11.7 - 15.7 g/dL 06/24/2024 10:28 AM EMERGENCY MEDICAL TECHNICIAN [facility] Hematocrit 24.8(L) 35.0 - 47.0 % 06/24/2024 10:28 AM EMERGENCY MEDICAL TECHNICIAN [facility] MCV 100 78 - 100 fL 06/24/2024 10:28 AM EMERGENCY MEDICAL TECHNICIAN [facility] MCH 31.7 26.5 - 33.0 pg 06/24/2024 10:28 AM EMERGENCY MEDICAL TECHNICIAN [facility] MCHC 31.9 31.5 - 36.5 g/dL 06/24/2024 10:28 AM EMERGENCY MEDICAL TECHNICIAN [facility] RDW 19.0(H) 10.0 - 15.0 % 06/24/2024 10:28 AM EMERGENCY MEDICAL TECHNICIAN [facility] Platelet Count 482(H) 150 - 450 10e3/uL 06/24/2024 10:28 AM EMERGENCY MEDICAL TECHNICIAN [facility] % Neutrophils 61 % 06/24/2024 10:28 AM EMERGENCY MEDICAL TECHNICIAN [facility] % Lymphocytes 26 % 06/24/2024 10:28 AM EMERGENCY MEDICAL TECHNICIAN [facility] % Monocytes 9 % 06/24/2024 10:28 AM EMERGENCY MEDICAL TECHNICIAN [facility] % Eosinophils 1 % 06/24/2024 10:28 AM EMERGENCY MEDICAL TECHNICIAN [facility] % Basophils 2 % 06/24/2024 10:28 AM EMERGENCY MEDICAL TECHNICIAN [facility] % Immature Granulocytes 1 % 06/24/2024 10:28 AM EMERGENCY MEDICAL TECHNICIAN [facility] NRBCs per 100 WBC 5(H) <1 /100 025 10:28 AM EMERGENCY MEDICAL TECHNICIAN [facility] Absolute Neutrophils 4.8 1.6 - 8.3 10e3/uL 06/24/2024 10:28 AM EMERGENCY MEDICAL TECHNICIAN [facility] Absolute Lymphocytes 2.1 0.8 - 5.3 10e3/uL 06/24/2024 10:28 AM EMERGENCY MEDICAL TECHNICIAN [facility] Absolute Monocytes 0.7 0.0 - 1.3 10e3/uL 06/24/2024 10:28 AM EMERGENCY MEDICAL TECHNICIAN [facility] Absolute Eosinophils 0.1 0.0 - 0.7 10e3/uL 06/24/2024 10:28 AM EMERGENCY MEDICAL TECHNICIAN [facility] Absolute Basophils 0.1 0.0 - 0.2 10e3/uL 06/24/2024 10:28 AM EMERGENCY MEDICAL TECHNICIAN [facility] Absolute Immature Granulocytes 0.1 <=0.4 10e3/uL 06/24/2024 10:28 AM EMERGENCY MEDICAL TECHNICIAN [facility] Absolute NRBCs 0.4 10e3/uL 06/24/2024 10:28 AM EMERGENCY MEDICAL TECHNICIAN [facility] Blood BLOOD SPECIMEN / Unknown Venipuncture / Unknown 06/24/2024 10:11 AM EMERGENCY MEDICAL TECHNICIAN 06/24/2024 10:22 AM EMERGENCY MEDICAL TECHNICIAN Richar Mahajan MD LAB - BLOOD ORDERABLES Liss l Result [facility] [address] [facility], [address] * (ABNORMAL) Reticulocyte count (06/24/2024 10:11 AM EMERGENCY MEDICAL TECHNICIAN) [facility] % Reticulocyte 11.2(H) 0.5 - 2.0 % 06/24/2024 10:28 AM EMERGENCY MEDICAL TECHNICIAN [facility] Absolute Reticulocyte 0.280(H) 0.025 - 0.095 10e6/uL 06/24/2024 10:28 AM EMERGENCY MEDICAL TECHNICIAN [facility] Blood BLOOD SPECIMEN / Unknown Venipuncture / Unknown 06/24/2024 10:11 AM EMERGENCY MEDICAL TECHNICIAN 06/24/2024 10:22 AM EMERGENCY MEDICAL TECHNICIAN Richar Mahajan MD LAB - BLOOD ORDERABLES Liss l Result [facility] [address] [facility] * HCG qualitative Blood (06/24/2024 10:11 AM EMERGENCY MEDICAL TECHNICIAN) Pathologist [facility] hCG Serum Qualitative Negative Negative JARET 06/24/2024 10:33 AM EMERGENCY MEDICAL TECHNICIAN [facility] Comment:This test is for scr eening purposes. Results should be interpreted along with the clinical picture. Confirmation testing is available if warranted by ordering [id number], HCG Quantitative . Blood BLOOD SPECIMEN / Unknown Venipuncture / Unknown 06/24/2024 10:11 AM EMERGENCY MEDICAL TECHNICIAN 06/24/2024 10:20 AM EMERGENCY MEDICAL TECHNICIAN Richar Mahajan MD LAB - BLOOD ORDERABLES Liss l Result [facility] [address] [facility] * Magnesium (06/24/2024 10:11 AM EMERGENCY MEDICAL TECHNICIAN) [facility] Magnesium 2.1 1.7 - 2.3 mg/dL 06/24/2024 10:51 AM EMERGENCY MEDICAL TECHNICIAN [facility] Blood BLOOD SPECIMEN / Unknown Venipuncture / Unknown 06/24/2024 10:11 AM EMERGENCY MEDICAL TECHNICIAN 06/24/2024 10:21 AM EMERGENCY MEDICAL TECHNICIAN Richar Mahajan MD LAB - BLOOD ORDERABLES Liss l Result [facility] Lab [address] [facility], [address] * (ABNORMAL) Comprehensive metabolic panel (06/24/2024 10:11 AM EMERGENCY MEDICAL TECHNICIAN) [facility] Sodium 138 135 - 145 mmol/L 06/24/2024 10:51 AM EMERGENCY MEDICAL TECHNICIAN [facility] Potassium 4.3 3.4 - 5.3 mmol/L 06/24/2024 10:51 AM EMERGENCY MEDICAL TECHNICIAN [facility] Carbon Dioxide (CO2) 20(L) 22 - 29 mmol/L 06/24/2024 10:51 AM EMERGENCY MEDICAL TECHNICIAN [facility] Anion Gap 10 7 - 15 mmol/L 06/24/2024 10:51 AM EMERGENCY MEDICAL TECHNICIAN [facility] Urea Nitrogen 9.9 6.0 - 20.0 mg/dL 06/24/2024 10:51 AM EMERGENCY MEDICAL TECHNICIAN [facility] Creatinine 0.62 0.51 - 0.95 mg/dL 06/24/2024 10:51 AM EMERGENCY MEDICAL TECHNICIAN [facility] GFR Estimate >90 >60 mL/min/1.7 3m2 06/24/2024 10:51 AM EMERGENCY MEDICAL TECHNICIAN [facility] Comment:eGFR calculated 2020 CKD-EPI equation. Calcium 8.7(L) 8.8 - 10.4 mg/dL 06/24/2024 10:51 AM EMERGENCY MEDICAL TECHNICIAN [facility] Chloride 108(H) 98 - 107 mmol/L 06/24/2024 10:51 AM EMERGENCY MEDICAL TECHNICIAN [facility] Glucose 98 70 - 99 mg/dL 06/24/2024 10:51 AM EMERGENCY MEDICAL TECHNICIAN [facility] Alkaline Phosphatase 119 40 - 150 U/L 06/24/2024 10:51 AM EMERGENCY MEDICAL TECHNICIAN [facility] AST 57(H) 0 - 45 U/L 06/24/2024 10:51 AM EMERGENCY MEDICAL TECHNICIAN [facility] ALT 53(H) 0 - 50 U/L 06/24/2024 10:51 AM EMERGENCY MEDICAL TECHNICIAN [facility] Protein Total 7.4 6.4 - 8.3 g/dL 06/24/2024 10:51 AM EMERGENCY MEDICAL TECHNICIAN [facility] Albumin 4.0 3.5 - 5.2 g/dL 06/24/2024 10:51 AM EMERGENCY MEDICAL TECHNICIAN [facility] Bilirubin Total 1.1 <=1.2 mg/dL 06/24/2024 10:51 AM EMERGENCY MEDICAL TECHNICIAN [facility] Blood BLOOD SPECIMEN / Unknown Venipuncture / Unknown 06/24/2024 10:11 AM EMERGENCY MEDICAL TECHNICIAN 06/24/2024 10:21 AM EMERGENCY MEDICAL TECHNICIAN us Richar Mahajan MD LAB - BLOOD ORDERABLES [address] Result [facility] [address] [facility] [place] [phone] * (ABNORMAL) INR (06/24/2024 10:11 AM EMERGENCY MEDICAL TECHNICIAN) INR 1.45(H) 0.85 - 1.15 06/24/2024 10:54 AM EMERGENCY MEDICAL TECHNICIAN [facility] Blood BLOOD SPECIMEN / Unknown Venipuncture / Unknown 06/24/2024 10:11 AM EMERGENCY MEDICAL TECHNICIAN 06/24/2024 10:21 AM EMERGENCY MEDICAL TECHNICIAN us Richar Mahajan MD LAB - BLOOD ORDERABLES Liss l Result LABORATORY [facility] Core Lab [address] [facility] * Partial thromboplastin time (06/24/2024 10:11 AM EMERGENCY MEDICAL TECHNICIAN) aPTT 32 22 - 38 Seconds 06/24/2024 10:55 AM EMERGENCY MEDICAL TECHNICIAN [facility] Blood BLOOD SPECIMEN / Unknown Venipuncture / Unknown 06/24/2024 10:11 AM EMERGENCY MEDICAL TECHNICIAN 06/24/2024 10:21 AM EMERGENCY MEDICAL TECHNICIAN us Richar Mahajan MD LAB - BLOOD ORDERABLES Liss l Result Performing Organization Address City/[facility] Co de Phone Number LABORATORY [facility] Core Lab [address] [facility] documented in this encounter Visit Diagnoses Diagnosis Sickle cell disease with crisis (H) Hb-SS disease with crisis documented in this encounter Administered Medications Inactive Administered Medications - up to 3 most recent administrations Medication Order MAR Action Action Date Dose Rate Site diphenhydrAMINE (BENADRYL) capsule 50 mg 50 mg, Oral, ONCE, On 06/24/24 at 0935, For 1 dose $Given 06/24/2024 10:20 AM EMERGENCY MEDICAL TECHNICIAN 50 mg hydromorphone (DILAUDID) injection 2 mg 2 mg, Intravenous, EVERY 1 HOUR PRN, severe pain, Starting on 06/24/24 at 0933, For 3 doses $Given 06/24/2024 12:41 PM EMERGENCY MEDICAL TECHNICIAN 2 mg $Given 06/24/2024 11:21 AM EMERGENCY MEDICAL TECHNICIAN 2 mg $Given 06/24/2024 10:19 AM EMERGENCY MEDICAL TECHNICIAN 2 mg lactated ringers BOLUS 1,000 mL Intravenous, 1,000 mL, ONCE, at 500 mL/hr, Administer over 2 Hours, On 06/24/24 at 0935, For 1 dose $New Bag 06/24/2024 10:20 AM EMERGENCY MEDICAL TECHNICIAN 1,000 mLs 500 mL/hr lidocaine (LMX4) cream [...] For 1 dose $Given 06/24/2024 10:19 AM EMERGENCY MEDICAL TECHNICIAN 8 mg sodium chloride (PF) 0.9% PF flush 3 mL 3 mL, Intracatheter, EVERY 8 HOURS, First dose on 06/24/24 at 0935, to lock peripheral IV dormant line $Given 06/24/2024 10:14 AM EMERGENCY MEDICAL TECHNICIAN 3 mLs sodium chloride (PF) 0.9% PF flush 3 mL 3 mL, Intracatheter, EVERY 1 MIN PRN, line flush, other, to ensure patency or to lock dormant line, Starting on 06/24/24 at 0930 documented in this encounter Active and Recently Administered Medications Times are shown in EMERGENCY MEDICAL TECHNICIAN. Scheduled Medication Order 06/22/2024 06/23/2024 06/24/2024 diphenhydrAMINE [...] 0930 documented in this encounter Care Teams Community Support Associate Relationship Specialty Start Date End Date Veronica Joseph MD [address] [place] [address] PCP - General Family Medicine 06/18/24 Mor Ramsey Medical Student 04/03/24 Case Samuel MD [address] [place] [address] 484, [address] [place], [place] [id number] Assigned Pediatric Specialist Provider 05/18/24 Juhi Benson, RN Specialty Gaming Floor Supervisor Hematology & Oncology 05/29/24 documented as of this encounter
[2024-06-24] MEDS: diphenhydrAMINE 50 MG/ML inj 25 MG IVP (20:59)
[2024-06-24] MEDS: HYDROmorphone 0.5 mg/0.5 ml inj 2 MG IVP ×3 (21:00→23:02)
[2024-06-24] MEDS: LACTATED RINGERS 1000 ML 1,000 ML 500 ML IV (21:00)
[2024-06-24] MEDS: HEPARIN 500 UNIT/5 ML SYRINGE IVF (23:03)
== END 2024-06-24 23:14 | disposition home or self-care (01) ==
LOC: ED 20:49
PROVIDERS: Emergency Provider Emergency Medicine Emergency Medical Services
DX: D57.219 Sickle-cell/Hb-C disease with crisis, unspecified (principal)
CPT/HCPCS: 96374; 96375; 96376; 99284; J1171; J1200; J1642; J7120

== ENCOUNTER 2024-06-25 14:24 | Emergency (ER) | payer BC, SELFPAY ==
--- NOTE | 2024-06-25 14:26 | ED.GENADULT ---
HPI - General Adult General Time Seen by Provider: 14:27 Date Seen: 06/25/24 Chief complaint: Unspecified Complaint, Adult Stated complaint: Sickle Cell Crisis Time Seen by Provider: 06/25/24 14:26 Source: patient, RN notes reviewed and old records reviewed Mode of arrival: ambulatory Limitations: no limitations History of Present Illness HPI narrative: 29-year-old female who presents with sickle cell pain crisis. Reports that she was seen last night for this, treated and discharged. Complains of pain in her back and legs. No chest pain or shortness of breath. Says she takes Dilaudid at home and reports having appointment with oncology tomorrow. Related Data Home Medications ?Medication ?Instructions ?Recorded ?Confirmed hydromorphone 2 mg tablet 4 mg PO Q4H PRN pain 04/02/24 04/08/24 folic acid 2 tab PO DAILY 04/04/24 04/08/24 hydroxyurea (sickle cell) 1,000 mg PO BID 04/04/24 04/08/24 Previous Rx's ?Medication ?Instructions ?Recorded azithromycin 250 mg tablet 250 mg PO DAILY 4 days #4 tabs 04/08/24 cefdinir 300 mg capsule 300 mg PO BID #20 caps 04/08/24 cefdinir 300 mg capsule 300 mg PO BID 107 days #214 caps 04/08/24 Allergies Allergy/AdvReac Type Severity Reaction Status Date / Time cashew nut Allergy Verified 06/24/24 20:14 ketorolac (From Toradol) Allergy Verified 06/24/24 20:14 tramadol Allergy Verified 06/24/24 20:14 banana AdvReac Verified 06/24/24 20:14 latex AdvReac Verified 06/24/24 20:14 PFSH PFS Medical History (Updated 06/25/24 @ 15:55 by Ben Ambriz MD) Sickle cell pain crisis ?D57.00 - Hb-SS disease with crisis, unspecified (ICD-10) Sickle cell anemia ?D57.1 - Sickle-cell disease without crisis (ICD-10) Social History Smoking Status: Never smoker Do you use any of these nicotine containing products: None How often do you have a drink containing alcohol: never AUDIT-C Alcohol total score: 0 Non-prescribed substance use: opiods/painkillers Exam Narrative: Exam Narrative: General: Well-developed and well-nourished, no acute distress Head: Atraumatic and normocephalic Eyes: Pupils are equal reactive, extraocular motions intact, conjunctiva clear ENT: External nose and ears are normal, posterior pharynx without erythema or exudate Neck: No midline cervical tenderness, full spontaneous range of motion the neck, trachea midline, no adenopathy Heart: Regular rate and rhythm no murmurs or thrills Lungs: Clear to auscultation bilaterally without wheezes or crackles Abdomen: Soft, nontender, nondistended with active bowel sounds Musculoskeletal: No tenderness, deformity, or edema Neurologic: Awake, alert, and oriented x3, no gross focal neurologic deficits, cranial nerves intact as tested Psych: Mood and affect are appropriate Skin: No rashes Const: Vital Signs, click to edit/add: Vital Signs - 24 hr 06/25/24 14:29 06/25/24 15:54 06/25/24 16:00 Temperature 98.6 F Pulse Rate [Pulse Oximeter] 88 82 Respiratory Rate 16 Respiratory Rate [ Generalized] 14 Blood Pressure [Ri ght Upper Arm] 109/72 131/92 H Pulse Oximetry 99 Oxygen Delivery Me thod Room Air 06/25/24 16:00 Temperature Pulse Rate [Pulse Oximeter] 84 Respiratory Rate Respiratory Rate [ Generalized] Blood Pressure [Ri ght Upper Arm] 132/100 H Pulse Oximetry Oxygen Delivery Me thod Course Course ED Course: Reviewed prior emergency department visits, patient has been seen essentially every day this month, admitted June 12-, also admitted June 16-, also seen it is outside facility yesterday for back pain and extremity pain. Further review of chart shows that patient has been seen in the emergency department almost every day since March 11, excluding the couple of times that she has been admitted. I did review the [place] prescription monitoring database and patient has been getting scheduled Dilaudid refills. From most recent [facility] note to from June 24: Acute Pain Crisis Treatment: (note that Toradol is listed as an allergy) ER/Acute Care/Infusion Clinic: Hydromorphone 2 mg IVP/SC Q1H X 3 doses LR 500 ml/hr x 2 hours (1 L total) Other: Zofran 8 mg IV Inpatient: Opioid: Hydromorphone 2 mg IV Q3H scheduled--titrate within 24-48 hours LR at maintenance rate x 1-2 days Other Medications: Zofran, Oral Benadryl for anxiety Supportive Care: Docusate, Senna PRN Home Pain Medications: Dilaudid 4 mg PO, Tylenol Baseline Hemoglobin: 8 g/dl Hydroxyurea use: Yes H/O blood transfusions: Yes H/O Transfusion Reactions: no Antibodies: Yes H/O Acute Chest Syndrome: Yes Last episode: ICU/intubation: once H/O Stroke: Yes H/O VTE: Yes (PE) H/O Cholecystectomy or Splenectomy: No H/O Asthma, Pulm HTN, AVN, Leg Ulcers, Nephropathy, Retinopathy, etc: AVN (left hip), retinopathy (right) Patient ambulates into the department without difficulty, smiling. and well appearing. Review of [place] prescription monitoring program shows patient received Dilaudid 2 mg tablets 40 tablets on June 16. Patient reports she has an appointment oncology tomorrow. Reports leg pain and back pain. No apparent distress, vital is stable. Labs are ordered. We discussed patient's emergency department visits which have been almost daily since March 11. Reevaluation(s) Time of Reevaluation #1: 15:54 Reevaluation #1: Labs independently interpreted by me with hemoglobin 8.6 which is proximally stable with patient, basic panel is reassuring. Anticipate discharge after fluids. Time of Reevaluation #2: 16:13 Reevaluation #2: Patient recheck, we discussed findings so far, requesting additional pain medication and then stable for discharge Vital Signs Vital signs: Initial Vital Signs Temperature 98.6 F 06/25/24 14:29 Temperature Source Temporal Artery Scan 06/25/24 14:29 Pulse Rate 88 06/25/24 14:29 Respiratory Rate 16 06/25/24 14:29 Blood Pressure 109/72 06/25/24 14:29 Blood Pressure Mean 84 06/25/24 14:29 Blood Pressure Position Sitting 06/25/24 14:29 Pulse Oximetry 99 06/25/24 14:29 Oxygen Delivery Method Room Air 06/25/24 14:29 Vital Signs Temperature 98.6 F 06/25/24 14:29 Pulse Rate 88 06/25/24 14:29 Respiratory Rate 16 06/25/24 14:29 Blood Pressure 109/72 06/25/24 14:29 Pulse Oximetry 99 06/25/24 14:29 Oxygen Delivery Method Room Air 06/25/24 14:29 Temperature 98.6 F 06/25/24 14:29 Pulse Rate 84 06/25/24 16:00 Respiratory Rate 14 06/25/24 16:00 Blood Pressure 132/100 H 06/25/24 16:00 Pulse Oximetry 99 06/25/24 14:29 Oxygen Delivery Method Room Air 06/25/24 14:29 Medications Administered Medications: Generic Name Dose Route Start Last Admin Trade Name Freq PRN Reason Stop Dose Admin Lactated Ringer's 1,000 mls @ 500 mls/hr 06/25/24 14:47 06/25/24 15:11 Lactated Ringers 1000 Ml IV 06/25/24 16:46 500 mls/hr .Q2H DANNI Administration Discontinued Medications Generic Name Dose Route Start Last Admin Trade Name Freq PRN Reason Stop Dose Admin Diphenhydramine HCl 25 mg 06/25/24 15:31 06/25/24 15:37 Diphenhydramine 50 Mg/Ml Inj IVP 06/25/24 15:32 25 mg ONCE ONE Administration Hydromorphone HCl 2 mg 06/25/24 14:45 06/25/24 15:17 Hydromorphone 0.5 Mg/0.5 Ml Inj IVP 06/25/24 14:46 2 mg ONCE ONE Administration Ondansetron HCl 8 mg 06/25/24 14:45 06/25/24 15:11 Ondansetron 2 Mg/Ml Inj IVP 06/25/24 14:46 8 mg ONCE ONE Administration Medical Decision Making Lab Data Labs: Lab Results 06/25/24 Range/Units 15:04 WBC 7.13 (4.50-11.00) K/uL RBC 2.62 L (4.00-5.20) m/uL Hgb 8.6 L (12.0-16.0) gm/dL Hct 25.4 L (33.0-51.0) % MCV 97 (80-100) fL MCH 33 (26-34) pg MCHC 34 (32-36) gm/dL RDW Coeff of Juli 18.7 H (11.5-15.5) % Plt Count 548 H (140-440) K/uL Neut % (Auto) 54.5 (42.0-72.0) % Lymph % (Auto) 30.3 (20-44) % Crisp % (Auto) 10.2 (0.0-11.0) % Eos % (Auto) 2.2 (0.0-7.0) % Baso % (Auto) 2.0 (0.0-3.0) % Neut # (Auto) 3.88 (1.7-7.0) K/uL Lymph # (Auto) 2.16 (0.90-2.90) K/uL Crisp # (Auto) 0.70 (0.00-0.90) K/UL Eos # (Auto) 0.16 (0.00-0.50) K/uL Baso # (Auto) 0.14 (0.00-0.30) K/uL Abs Immat Gran (auto) 0.06 (0.00-0.30) K/uL Imm/Tot Granulo (auto) 0.8 % Sodium 138 (135-149) mmol/L Potassium 4.0 (3.6-5.1) mmol/L Chloride 107 (96-114) mmol/L Carbon Dioxide 22 (20-32) mmol/L Anion Gap 9 (7-15) mEq/L BUN 6 (5-24) mg/dL Creatinine 0.6 (0.5-1.5) mg/dL Estimated Creat Clear 103.46 Estimated GFR 124 ml/min Glucose 115 (60-115) mg/dL Calcium 9.1 (8.4-10.6) mg/dL Discharge Plan Discharge Clinical Impression: Sickle cell pain crisis Patient Disposition: Home, Self-Care Condition: Stable Instructions: Sickle Cell Crisis (ED) Additional Instructions: Follow-up with Hematology, continue your outpatient pain management plan Activity Level: No Restrictions Discharge Diet: Regular Prescriptions: No Action cefdinir 300 mg capsule 300 mg PO BID 107 Days Qty: 214 0RF azithromycin 250 mg tablet 250 mg PO DAILY 4 Days Qty: 4 0RF Rx Instructions: first dose was given in ER 04/08/24. start on day 2 of therapy cefdinir 300 mg capsule 300 mg PO BID Qty: 20 0RF hydromorphone 2 mg tablet 4 mg PO Q4H PRN (Reason: pain) hydroxyurea (sickle cell) 1,000 mg PO BID folic acid 2 tab PO DAILY Rx Instructions: 2mg Follow Up/Referrals: Provider,Not a Local [Primary Care Provider] - Stand Alone Forms: [employer] Info Instructions
[2024-06-25 14:29] VITALS: BP 109/72; PULSE 88; RESP 16; TEMP 37; O2SAT 99; BMI 21.4
--- OUTSIDE RECORDS SUMMARY | 2024-06-25 14:29 | XMS_ITS | Encounter Summary ---
Author Organization [facility] Address [facility] 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
--- OUTSIDE RECORDS SUMMARY | 2024-06-25 14:29 | XMS_ITS | Clinical Summary ---
Author Organization [facility] Address [address] [place] [id number] Care Team Providers Care Field Assistant Name Role Phone Veronica Joseph MD Primary Care Provider [phone] Allergies Active Allergy Reactions Criticality Noted Date [...] ickle cell pain crisis (HC) Inhale 1 [place] into affected nostril(s) each time if needed [...] for Pain. 10 Tablet 5 2:58 PM CROP OR GRAIN FARMER 04/27/19 25 Active folic acid 1 mg tablet Take 1 tablet (1 mg) by mouth daily. 30 Tablet 5 1:41 PM CROP OR GRAIN FARMER 05/01/19 25 Active hydroxyurea (HYDREA) 500 mg capsule Take 2 capsules (1,000 mg) by mouth 2 times daily 120 Capsule 05/01/19 25 Active multivitamin with folic acid 0.4 mg (Thera) Take 1 tablet by mouth daily. 30 Tablet 11 5 10:39 AM CROP OR GRAIN FARMER 05/01/19 25 Active amoxicillin-clavul anate (AUGMENTIN) 875-125 mg tablet Take 1 tablet by mouth 2 times daily for 7 days. 14 Tablet 5 10:39 AM CROP OR GRAIN FARMER 05/08/19 25 Active doxycycline hyclate 100 mg capsule Take 1 capsule (100 mg) by mouth 2 times daily for 7 days. 14 Capsule 5 10:39 AM CROP OR GRAIN FARMER 05/08/19 25 Active HYDROmorphone 4 mg tablet Take 1 Tablet (4 mg) by mouth every 6 hours if needed for severe pain. 30 Tablet 5 1:04 PM CROP OR GRAIN FARMER 05/09/19 25 Active FLUoxetine (PROZAC) 10 mg capsule Take 1 capsule (10 mg) by mouth daily. 40 Capsule 1 5 3:26 PM CROP OR GRAIN FARMER 05/29/19 25 Active naloxone (NARCAN) 4 mg/actuation nasal spray [place] 1 spray (4 mg) into one nostril [...] severe pain. 40 Tablet 5 11:11 AM CROP OR GRAIN FARMER 06/15/19 25 Active HYDROmorphone 2 mg tablet Take 2 tablets (4 mg) by mouth every 6 hours as needed for severe pain. 30 Tablet 5 4:42 PM CROP OR GRAIN FARMER 05/24/19 25 025 Discontin ued(Reord er (E-cancel not sent)) HYDROmorphone 2 mg tablet Take 2 tablets (4 mg) by mouth every 6 hours as needed for severe pain. 40 Tablet 5 3:26 PM CROP OR GRAIN FARMER 05/29/19 25 025 Discontin ued(Reord er (E-cancel not sent)) HYDROmorphone 2 mg tablet Take 2 tablets (4 mg) by mouth every 6 hours as needed for severe pain. 40 Tablet 5 4:27 PM CROP OR GRAIN FARMER 06/07/19 25 025 Discontin ued(Reord er (E-cancel [...] Department Care Team Description 06/11/2024 1:08 AM CR[facility] OR GRAIN FARMER - 06/11/2024 3:57 AM [facility] Emergency [facility] [address] [place] [address] Juan Kunz, Sickle cell pain crisis (HC) (Primary Dx) Discharge Disposition: Home Self Care 06/11/2024 Travel 06/06/2024 Refill Formerly [facility] [address] [place] [address] Veronica Joseph MD Refill Request 06/03/2024 11:37 AM CR[facility] OR GRAIN FARMER - 06/03/2024 2:[address] [address] Ben Swan MD Viral syndrome (Primary Dx) Discharge Disposition: Home Self Care 06/03/2024 Travel 05/29/2024 1:53 PM CR[facility] OR GRAIN FARMER - 05/29/2024 2:[address] [address] Ana Pacheco MD Sickle cell pain crisis (HC) (Primary Dx) Discharge Disposition: Home Self Care 05/29/2024 Travel 05/21/2024 10:35 AM CR[facility] OR GRAIN FARMER - 05/21/2024 2:[address] [address] Juliana Gil DO Sickle cell disease with crisis (HC) (Primary Dx); Diffuse pain Discharge Disposition: Home Self Care 05/21/2024 Travel 05/18/2024 2:12 AM CR[facility] OR GRAIN FARMER - 05/18/2024 4:[address] [address] Onesimo Gaviria MD Sickle cell pain crisis (HC) (Primary Dx) Discharge Disposition: Home Self Care 05/18/2024 Travel 05/17/2024 Telephone [facility] [address] [place] [address] Veronica Joseph MD Questions (HEALTH STATUS ) 05/10/2024 Telephone [facility] [address] [place] [address] Veronica Joseph MD Follow Up 05/07/2024 5:53 PM CR[facility] OR GRAIN FARMER - 05/07/2024 8:[address] [address] Caryn Downs MD Sickle cell anemia with pain (HC) (Primary Dx); RUQ abdominal pain Discharge Disposition: Home Self Care 05/07/2024 Travel 05/03/2024 10:59 PM CR[facility] OR GRAIN FARMER - 05/04/2024 2:[address] [address] Anika Mccracken MD Discharge Disposition: Home Self Care 05/03/2024 Travel 05/02/2024 10:15 AM CR[facility] OR GRAIN FARMER - 05/02/2024 12:[address] [address] Juan Kunz DO Sickle cell pain crisis (HC) (Primary Dx) Discharge Disposition: Home Self Care 05/02/2024 Travel 04/27/2024 Telephone [facility] [address] [place] [address] Veronica Joseph MD 04/27/2024 Refill [facility] [address] [place] [address] Veronica Joseph MD Refill Request (HYDROmorphone 4 mg tablet ) 04/24/2024 1:31 AM CROP OR GRAIN FARMER - 04/24/2024 4:[address] [address] Onesimo Gaviria MD Sickle cell pain crisis (HC) (Primary Dx); Community acquired pneumonia, unspecified laterality Discharge Disposition: Home Self Care 04/24/2024 Refill [facility] [address] [place] [address] Veronica Joseph MD Refill Request (HYDROmorphone 4 mg tablet ) 04/24/2024 Travel 04/22/2024 1:40 PM CR[facility] OR GRAIN FARMER - 04/22/2024 5:[address] [place] [address] Shauna Flaherty PA Sickle cell pain crisis (HC) (Primary Dx) Discharge Disposition: Home Self Care 04/22/2024 Travel 04/20/2024 3:40 PM CR[facility] OR GRAIN FARMER - 04/20/2024 6:[address] [address] Maria Teresa Haider PA Left hip pain (Primary Dx) Discharge Disposition: Home Self Care 04/20/2024 Travel 04/20/2024 Telephone [facility] [address] [place] [address] Veronica Joseph MD 04/20/2024 Refill [facility] [address] [place] [address] Veronica Joseph MD Refill Request (HYDROmorphone 4 mg tablet) 04/19/2024 7:18 PM CROP OR GRAIN FARMER - 04/19/2024 9:[address] [address] Maria Teresa Haider PA Closed right hip fracture, initial encounter (HC) (Primary Dx); Avascular necrosis of bone of right hip (HC); Sickle cell pain crisis (HC) Discharge Disposition: Home Self Care 04/19/2024 Travel 04/18/2024 3:51 AM CR[facility] OR GRAIN FARMER - 04/18/2024 5:[address] [address] Elizabeth Duffy MD Left hip pain (Primary Dx); Sickle cell disease with crisis (HC) Discharge Disposition: Home Self Care 04/17/2024 10:36 AM CR[facility] OR GRAIN FARMER - 04/17/2024 12:[address] [address] Juhi Hull PA Left hip pain (Primary Dx); Sickle cell pain crisis (HC) Discharge Disposition: Home Self Care 04/17/2024 Travel 04/15/2024 5:33 PM CROP OR GRAIN FARMER - 04/15/2024 10:24 PM CROP OR GRAIN FARMER [address] [address] Kathy Contreras MD Sickle cell pain crisis (HC) (Primary Dx) Discharge Disposition: Home Self Care 04/15/2024 Travel 04/11/2024 9:55 AM CROP OR GRAIN FARMER Office Visit [facility]ly [facility] [address] [place] [address] Veronica Joseph MD Follow Up (Sickle Cell) 04/11/2024 Travel 04/08/2024 6:17 PM CROP OR GRAIN FARMER - 04/08/2024 8:[address] [address] Ana Pacheco MD Sickle cell pain crisis (HC) (Primary Dx) Discharge Disposition: Home Self Care 04/08/2024 Travel 04/06/2024 8:27 PM CROP OR GRAIN FARMER - 04/06/2024 10:[address] [address] Tanmay Olivares PA Biliary colic (Primary Dx) Discharge Disposition: Home Self Care 04/06/2024 Travel 04/04/2024 6:29 PM CROP OR GRAIN FARMER - 04/04/2024 10:[address] [address] Juhi Patel PA Sickle cell anemia with pain (HC) (Primary Dx); Opioid use Discharge Disposition: Home Self Care 04/04/2024 Travel 04/02/2024 3:52 PM CROP OR GRAIN FARMER - 04/02/2024 6:[address] [address] Sabrina Ulrich PA Roy, David William, MD Sickle cell pain crisis (HC) (Primary Dx); Multiple pulmonary nodules Discharge Disposition: Home Self Care 04/02/2024 Travel 03/31/2024 Patient Outreach [facility] [address] [place] [address] Lavinia Owens, SOFIA Primary RN Care Management (LACE: 48); Hospital F/U (Diagnosis: Sickle cell pain crisis (HC) DOD: 03/30/24) 03/28/2024 7:19 PM CROP OR GRAIN FARMER - 03/30/2024 9:28 AM CROP OR GRAIN FARMER Emergency [address] [address] Onesimo Gaviria MD Qadri, Ghaziuddin Ahmed, MBBS Fuchs, Kurt Richard, MD Sickle cell pain crisis (HC) (Primary Dx) Discharge Disposition: Home Self Care 03/28/2024 12:19 AM CROP OR GRAIN FARMER - 03/28/2024 4:24 AM CROP OR GRAIN FARMER Emergency [address] [address] Mor Ramsey MD Sickle cell disease with crisis (HC) (Primary Dx); Chest pain, unspecified type Discharge Disposition: Home Self Care 03/28/2024 Telephone [facility] [address] [place] [address] Veronica Joseph MD Medication Management (HYDROmorphone 2 [...] on file Legal Sex Female 8:18 PM CROP OR GRAIN FARMER Gender Identity Not on file Sexual Orientation Not on file Obstetrics History Last Filed Vital Signs Vital Sign Reading Time Taken Comments Blood Pressure 121/73 06/11/2024 3:30 AM CROP OR GRAIN FARMER Pulse 93 06/11/2024 3:30 AM CROP OR GRAIN FARMER Temperature 36.6 C (97.9 F) 06/11/2024 1:12 AM CROP OR GRAIN FARMER Respiratory Rate 18 06/11/2024 3:00 AM CROP OR GRAIN FARMER Oxygen Saturation 95% 06/11/2024 3:30 AM CROP OR GRAIN FARMER Inhaled Oxygen Concentration - - Weight 51.7 kg (114 lb) 06/11/2024 1:10 AM CROP OR GRAIN FARMER Height 154.9 cm (5' 1) 06/11/2024 1:10 AM CROP OR GRAIN FARMER Body Mass Index 21.54 06/11/2024 1:10 AM CROP OR GRAIN FARMER Plan of Treatment Health Maintenance Due Date [...] WITH AUTO DIFFERENTIAL STAT 06/03/2024 12:51 PM CROP OR GRAIN FARMER INFLUENZA A/B PCR Today 06/03/2024 12: 51 PM CROP OR GRAIN FARMER COVID-19 MOLECULAR Today 06/03/2024 12 :51 PM CROP OR GRAIN FARMER BASIC METABOLIC PANEL STAT 06/03/2024 12:51 PM CROP OR GRAIN FARMER CBC WITH AUTO DIFFERENTIAL STAT 06/03/2024 12:51 PM CROP OR GRAIN FARMER XR CHEST 2 VIEWS PA AND LATERAL STAT 06/03/2024 12:34 PM CROP OR GRAIN FARMER EKG 12 LEAD STAT 06/03/2024 11:48 AM CROP OR GRAIN FARMER HEMOGLOBIN STAT 05/29/2024 2:23 PM CROP OR GRAIN FARMER EKG 12 LEAD STAT 05/29/2024 2:03 PM CROP OR GRAIN FARMER EKG 12 LEAD STAT 05/21/2024 10:19 AM CROP OR GRAIN FARMER RED CELL MORPHOLOGY STAT 05/07/2024 6 :20 PM CROP OR GRAIN FARMER PLATELET ESTIMATE STAT 05/07/2024 6:2 0 PM CROP OR GRAIN FARMER RETICULOCYTES STAT 05/07/2024 6:20 PM CROP OR GRAIN FARMER LIPASE STAT 05/07/2024 6:20 PM CROP OR GRAIN FARMER HEPATIC FUNCTION PANEL STAT 6:20 PM CROP OR GRAIN FARMER BASIC METABOLIC PANEL STAT 05/07/2024 6:20 PM CROP OR GRAIN FARMER CBC W PLT NO DIFF STAT 05/07/2024 6:2 0 PM CROP OR GRAIN FARMER CT CHEST PE STUDY STAT 05/04/2024 1:4 6 AM CROP OR GRAIN FARMER RETICULOCYTES STAT 05/04/2024 12:24 AM CROP OR GRAIN FARMER URINE Today 05/04/2024 12:07 AM CROP OR GRAIN FARMER UA W/ SEDIMENT EXAM REFLEXED PER CRITERIA Today 05/04/2024 12:07 AM CROP OR GRAIN FARMER CWS PATH REVIEW HEMATOLOGY STAT 05/03/2024 11:52 PM CROP OR GRAIN FARMER RED CELL MORPHOLOGY STAT 05/03/2024 1 1:52 PM CROP OR GRAIN FARMER PLATELET ESTIMATE STAT 05/03/2024 11: 52 PM CROP OR GRAIN FARMER MANUAL DIFFERENTIAL STAT 05/03/2024 1 1:52 PM CROP OR GRAIN FARMER CBC WITH AUTO DIFFERENTIAL STAT 05/03/2024 11:52 PM CROP OR GRAIN FARMER D-DIMER,QUANTITATIVE STAT 05/03/2024 11:52 PM CROP OR GRAIN FARMER HEPATIC FUNCTION PANEL STAT 11:52 PM CROP OR GRAIN FARMER BASIC METABOLIC PANEL STAT 05/03/2024 11:52 PM CROP OR GRAIN FARMER CBC WITH AUTO DIFFERENTIAL STAT 05/03/2024 11:52 PM CROP OR GRAIN FARMER EKG 12 LEAD STAT 05/03/2024 11:48 PM CROP OR GRAIN FARMER INFLUENZA A/B PCR Today 05/02/2024 10: 20 AM CROP OR GRAIN FARMER COVID-19 MOLECULAR Today 05/02/2024 10 :20 AM CROP OR GRAIN FARMER CBC WITH AUTO DIFFERENTIAL SULEMA 04/24/2024 2:16 AM CROP OR GRAIN FARMER RETICULOCYTES Early AM 04/24/2024 2:16 AM CROP OR GRAIN FARMER CBC WITH AUTO DIFFERENTIAL SULEMA 04/24/2024 2:16 AM CROP OR GRAIN FARMER BASIC METABOLIC PANEL SULEMA 04/24/2024 2:16 AM CROP OR GRAIN FARMER XR CHEST 2 VIEWS PA AND LATERAL STAT 04/24/2024 1:58 AM CROP OR GRAIN FARMER EKG 12 LEAD SULEMA 04/24/2024 1:38 AM CROP OR GRAIN FARMER RETICULOCYTES STAT 04/22/2024 2:21 PM CROP OR GRAIN FARMER BASIC METABOLIC PANEL STAT 04/22/2024 2:21 PM CROP OR GRAIN FARMER CBC W PLT NO DIFF STAT 04/22/2024 2:2 1 PM CROP OR GRAIN FARMER XR CHEST 2 VIEWS PA AND LATERAL STAT 04/22/2024 1:18 PM CROP OR GRAIN FARMER EKG 12 LEAD STAT 04/22/2024 1:06 PM CROP OR GRAIN FARMER TYPE & SCREEN STAT 04/20/2024 4:43 PM CROP OR GRAIN FARMER RED CELL MORPHOLOGY STAT 04/20/2024 4 :43 PM CROP OR GRAIN FARMER PLATELET ESTIMATE STAT 04/20/2024 4:4 3 PM CROP OR GRAIN FARMER MANUAL DIFFERENTIAL STAT 04/20/2024 4 :43 PM CROP OR GRAIN FARMER CBC WITH AUTO DIFFERENTIAL STAT 04/20/2024 4:43 PM CROP OR GRAIN FARMER RETICULOCYTES STAT 04/20/2024 4:43 PM CROP OR GRAIN FARMER CBC WITH AUTO DIFFERENTIAL STAT 04/20/2024 4:43 PM CROP OR GRAIN FARMER BASIC METABOLIC PANEL STAT 04/20/2024 4:25 PM CROP OR GRAIN FARMER XR ANKLE 3 VIEWS LEFT STAT 04/18/2024 5:09 AM CROP OR GRAIN FARMER C-REACTIVE PROTEIN STAT 04/18/2024 4: 59 AM CROP OR GRAIN FARMER BASIC METABOLIC PANEL STAT 04/18/2024 4:59 AM CROP OR GRAIN FARMER SEDIMENTATION RATE STAT 04/18/2024 4: 58 AM CROP OR GRAIN FARMER CBC WITH AUTO DIFFERENTIAL STAT 04/18/2024 4:58 AM CROP OR GRAIN FARMER RETICULOCYTES STAT 04/18/2024 4:58 AM CROP OR GRAIN FARMER CBC WITH AUTO DIFFERENTIAL STAT 04/18/2024 4:58 AM CROP OR GRAIN FARMER RED CELL MORPHOLOGY STAT 04/17/2024 1 0:50 AM CROP OR GRAIN FARMER PLATELET ESTIMATE STAT 04/17/2024 10: 50 AM CROP OR GRAIN FARMER C-REACTIVE PROTEIN SULEMA 04/17/2024 10 :50 AM CROP OR GRAIN FARMER SEDIMENTATION RATE SULEMA 04/17/2024 10 :50 AM CROP OR GRAIN FARMER CBC W PLT NO DIFF STAT 04/17/2024 10: 50 AM CROP OR GRAIN FARMER BASIC METABOLIC PANEL STAT 04/17/2024 10:50 AM CROP OR GRAIN FARMER RETICULOCYTES STAT 04/17/2024 10:50 AM CROP OR GRAIN FARMER XR HIP 2 OR 3 VIEWS W PELVIS LEFT STAT 04/15/2024 6:34 PM CROP OR GRAIN FARMER TYPE & SCREEN STAT 04/15/2024 6:10 PM CROP OR GRAIN FARMER RED CELL MORPHOLOGY STAT 04/15/2024 6 :10 PM CROP OR GRAIN FARMER PLATELET ESTIMATE STAT 04/15/2024 6:1 0 PM CROP OR GRAIN FARMER C-REACTIVE PROTEIN STAT 04/15/2024 6: 10 PM CROP OR GRAIN FARMER SEDIMENTATION RATE STAT 04/15/2024 6: 10 PM CROP OR GRAIN FARMER CBC WITH AUTO DIFFERENTIAL STAT 04/15/2024 6:10 PM CROP OR GRAIN FARMER BASIC METABOLIC PANEL STAT 04/15/2024 6:10 PM CROP OR GRAIN FARMER RETICULOCYTES STAT 04/15/2024 6:10 PM CROP OR GRAIN FARMER CBC WITH AUTO DIFFERENTIAL STAT 04/15/2024 6:10 PM CROP OR GRAIN FARMER RED CELL MORPHOLOGY Timed 04/08/2024 8 :27 PM CROP OR GRAIN FARMER PLATELET ESTIMATE Timed 04/08/2024 8:2 7 PM CROP OR GRAIN FARMER RETICULOCYTES Early AM 04/08/2024 8:27 PM CROP OR GRAIN FARMER CBC W PLT NO DIFF Early AM 04/08/2024 8:2 7 PM CROP OR GRAIN FARMER XR CHEST 2 VIEWS PA AND LATERAL STAT 04/08/2024 7:28 PM CROP OR GRAIN FARMER BASIC METABOLIC PANEL STAT 04/08/2024 7:05 PM CROP OR GRAIN FARMER EKG 12 LEAD STAT 04/08/2024 5:50 PM CROP OR GRAIN FARMER US ABDOMEN LIMITED GALLBLADDER STAT 04/06/2024 9:38 PM CROP OR GRAIN FARMER CBC WITH AUTO DIFFERENTIAL STAT 04/06/2024 8:55 PM CROP OR GRAIN FARMER RETICULOCYTES STAT 04/06/2024 8:55 PM CROP OR GRAIN FARMER LIPASE STAT 04/06/2024 8:55 PM CROP OR GRAIN FARMER COMP METABOLIC PANEL STAT 04/06/2024 8:55 PM CROP OR GRAIN FARMER CBC WITH AUTO DIFFERENTIAL STAT 04/06/2024 8:55 PM CROP OR GRAIN FARMER XR CHEST 2 VIEWS PA AND LATERAL STAT 04/04/2024 7:28 PM CROP OR GRAIN FARMER RED CELL MORPHOLOGY STAT 04/04/2024 6 :54 PM CROP OR GRAIN FARMER PLATELET ESTIMATE STAT 04/04/2024 6:5 4 PM CROP OR GRAIN FARMER MANUAL DIFFERENTIAL STAT 04/04/2024 6 :54 PM CROP OR GRAIN FARMER TROPONIN T (HS) ACUTE W/2HR REFLEX SULEMA 04/04/2024 6:54 PM CROP OR GRAIN FARMER CBC WITH AUTO DIFFERENTIAL STAT 04/04/2024 6:54 PM CROP OR GRAIN FARMER RETICULOCYTES STAT 04/04/2024 6:54 PM CROP OR GRAIN FARMER BASIC METABOLIC PANEL STAT 04/04/2024 6:54 PM CROP OR GRAIN FARMER CBC WITH AUTO DIFFERENTIAL STAT 04/04/2024 6:54 PM CROP OR GRAIN FARMER EKG 12 LEAD STAT 04/04/2024 6:45 PM CROP OR GRAIN FARMER XR CHEST 2 VIEWS PA AND LATERAL STAT 04/02/2024 4:42 PM CROP OR GRAIN FARMER EKG 12 LEAD STAT 04/02/2024 4:24 PM CROP OR GRAIN FARMER RED CELL MORPHOLOGY STAT 04/02/2024 4 :21 PM CROP OR GRAIN FARMER PLATELET ESTIMATE STAT 04/02/2024 4:2 1 PM CROP OR GRAIN FARMER CBC WITH AUTO DIFFERENTIAL STAT 04/02/2024 4:21 PM CROP OR GRAIN FARMER RETICULOCYTES STAT 04/02/2024 4:21 PM CROP OR GRAIN FARMER BASIC METABOLIC PANEL STAT 04/02/2024 4:21 PM CROP OR GRAIN FARMER CBC WITH AUTO DIFFERENTIAL STAT 04/02/2024 4:21 PM CROP OR GRAIN FARMER SODIUM Early AM 03/30/2024 8:15 AM CROP OR GRAIN FARMER CREATININE Early AM 03/30/2024 8:15 AM CROP OR GRAIN FARMER POTASSIUM Early AM 03/30/2024 8:15 AM CROP OR GRAIN FARMER PLATELET COUNT Early AM 03/30/2024 8:15 AM CROP OR GRAIN FARMER WHITE BLOOD COUNT Early AM 03/30/2024 8:1 5 AM CROP OR GRAIN FARMER HEMOGLOBIN Early AM 03/30/2024 8:15 AM CROP OR GRAIN FARMER WHITE BLOOD COUNT Early AM 03/29/2024 5:4 4 AM CROP OR GRAIN FARMER BILIRUBIN,TOTAL Early AM 03/29/2024 5:44 AM CROP OR GRAIN FARMER PLATELET COUNT Early AM 03/29/2024 5:44 AM CROP OR GRAIN FARMER HEMOGLOBIN Early AM 03/29/2024 5:44 AM CROP OR GRAIN FARMER RETICULOCYTES Early AM 03/29/2024 5:44 AM CROP OR GRAIN FARMER BILIRUBIN,TOTAL/DIRECT SULEMA 7:53 PM CROP OR GRAIN FARMER RED CELL MORPHOLOGY SULEMA 03/28/2024 7 :53 PM CROP OR GRAIN FARMER PLATELET ESTIMATE SULEMA 03/28/2024 7:5 3 PM CROP OR GRAIN FARMER MANUAL DIFFERENTIAL SULEMA 03/28/2024 7 :53 PM CROP OR GRAIN FARMER CBC WITH AUTO DIFFERENTIAL SULEMA 03/28/2024 7:53 PM CROP OR GRAIN FARMER CBC WITH AUTO DIFFERENTIAL SULEMA 03/28/2024 7:53 PM CROP OR GRAIN FARMER BASIC METABOLIC PANEL SULEMA 03/28/2024 7:53 PM CROP OR GRAIN FARMER BLOOD CULTURE STAT 03/28/2024 2:17 AM CROP OR GRAIN FARMER PROCALCITONIN STAT 03/28/2024 2:06 AM CROP OR GRAIN FARMER BLOOD CULTURE STAT 03/28/2024 2:06 AM CROP OR GRAIN FARMER XR CHEST 2 VIEWS PA AND LATERAL STAT 03/28/2024 1:17 AM CROP OR GRAIN FARMER C-REACTIVE PROTEIN SULEMA 03/28/2024 12 :53 AM CROP OR GRAIN FARMER BASIC METABOLIC PANEL STAT 03/28/2024 12:53 AM CROP OR GRAIN FARMER RETICULOCYTES STAT 03/28/2024 12:53 AM CROP OR GRAIN FARMER CBC W PLT NO DIFF STAT 03/28/2024 12: 53 AM CROP OR GRAIN FARMER EKG 12 LEAD STAT 03/28/2024 12:22 AM CROP OR GRAIN FARMER from Last 3 Months Results * COVID-19 MOLECULAR (06/03/2024 12:51 PM CROP OR GRAIN FARMER) Only the most recent of2 resultswithin the time period is included. COVID 19 [place] MOLECULAR Not detected Not detected 06/03/2024 1:18 PM CROP OR GRAIN FARMER [facility] 06/03/2024 1:18 PM CROP OR GRAIN FARMER [facility] Comment:Specimen submitted t o [facility] for testing. Other SPECIMEN FROM NASOPHARYNGEAL STRUCTURE / Unknown Non-Blood / Unknown 06/03/2024 12:51 PM CROP OR GRAIN FARMER 06/03/2024 12:54 PM CROP OR GRAIN FARMER Ben Swan MD MICROBIOLOGY Final Res ult Performing Organization Address City/[facility] Co de Phone Number [facility] [address] [place] [id number], * INFLUENZA A/B PCR (06/03/2024 12:51 PM CROP OR GRAIN FARMER) Only the most recent of2 resultswithin the time period is included. INFLUENZA A PCR NOT Detected 06/03/2024 1:18 PM CROP OR GRAIN FARMER [facility] INFLUENZA B PCR NOT Detected 06/03/2024 1:18 PM CROP OR GRAIN FARMER [facility] Other SPECIMEN FROM NASOPHARYNGEAL STRUCTURE / Unknown Non-Blood / Unknown 06/03/2024 12:51 PM CROP OR GRAIN FARMER 06/03/2024 12:54 PM CROP OR GRAIN FARMER Ben Swan MD MICROBIOLOGY Final Res ult Performing Organization Address [facility]/ZIP Co de Phone Number [facility] [address] [place] [id number], [place] [phone] * (ABNORMAL) CBC WITH AUTO DIFFERENTIAL (06/03/2024 12:51 PM CROP OR GRAIN FARMER) Only the most recent of10 resultswithin the time period is included. WHITE BLOOD COUNT 11.0 4.5 - 11.0 thou/cu mm 06/03/2024 1:05 PM CROP OR GRAIN FARMER [facility] RED BLOOD COUNT 2.94(L) 4.00 - 5.20 mil/cu mm 06/03/2024 1:05 PM CROP OR GRAIN FARMER [facility] HEMOGLOBIN 9.3(L) 12.0 - 16.0 g/dL 06/03/2024 1:05 PM CROP OR GRAIN FARMER [facility] HEMATOCRIT 26.9(L) 33.0 - 51.0 % 06/03/2024 1:05 PM CROP OR GRAIN FARMER [facility] MCV 92 80 - 100 fL 06/03/2024 1:05 PM CROP OR GRAIN FARMER [facility] MCH 31.6 26.0 - 34.0 pg 06/03/2024 1:05 PM [facility] MCHC 34.6 32.0 - 36.0 g/dL 06/03/2024 1:05 PM [facility] RDW 18.9(H) 11.5 - 15.5 % 06/03/2024 1:05 PM CR[facility] OR GRAIN FARMER [facility] PLATELET COUNT 456(H) 140 - 440 thou/cu mm 06/03/2024 1:05 PM [facility] MPV 9.8 6.5 - 11.0 fL 06/03/2024 1:05 PM [facility] NRBC 0.6 % 06/03/2024 1:05 PM [facility] ABS NRBC 0.1 thou /cu mm 06/03/2024 1:05 PM [facility] % NEUT 69.9 % 06/03/2024 1:05 PM CR[facility] OR GRAIN FARMER [facility] % LYMPH 15.1 % 06/03/2024 1:05 PM CR[facility] OR GRAIN FARMER [facility] % MONO 13.4 % 06/03/2024 1:05 PM CR[facility] OR GRAIN FARMER [facility] % EOS 0.2 % 06/03/2024 1:05 PM CR[facility] OR GRAIN FARMER [facility] % BASO 0.9 % 06/03/2024 1:05 PM CR[facility] OR GRAIN FARMER [facility] % IMMATURE GRAN (METAS,MYELOS,VA OS) 0.5 % 06/03/2024 1:05 PM CR[facility] OR GRAIN FARMER [facility] ABSOLUTE NEUTROPHILS 7.7(H) 1.7 - 7.0 thou/cu mm 06/03/2024 1:05 PM CR[facility] OR GRAIN FARMER [facility] ABSOLUTE LYMPHOCYTES 1.7 0.9 - 2.9 thou/cu mm 06/03/2024 1:05 PM CROP OR GRAIN [facility] ABSOLUTE MONOCYTES 1.5(H) <0.9 thou/cu mm 06/03/2024 1:05 PM [facility] ABSOLUTE EOSINOPHILS 0.0 <0.5 thou/cu mm 06/03/2024 1:05 PM [facility] ABSOLUTE BASOPHILS 0.1 <0.3 thou/cu mm 06/03/2024 1:05 PM [facility] ABSOLUTE IMMATURE GRANULOCYTES(MET ,MYELOS,PROS) 0.1 <0.3 thou/cu mm 06/03/2024 1:05 PM [facility] Blood BLOOD SPECIMEN / Unknown IV Start / Unknown 06/03/2024 12:51 PM [facility] 06/03/2024 12:54 PM [facility] us Ben Swan MD HEMATOLOGY Final Res ult [facility] [address] [place] [address], * (ABNORMAL) BASIC METABOLIC PANEL (06/03/2024 12:51 PM [facility]) Only the most recent of14 resultswithin the time period is included. SODIUM 135(L) 136 - 145 mmol/L 06/03/2024 1:13 PM [facility] POTASSIUM 4.5 3.5 - 5.1 mmol/L 06/03/2024 1:13 PM [facility] CHLORIDE 101 98 - 107 mmol/L 06/03/2024 1:13 PM [facility] CO2,TOTAL 21(L) 22 - 29 mmol/L 06/03/2024 1:13 PM [facility] ANION GAP 13 5 - 18 06/03/2024 1:13 PM [facility] GLUCOSE 100(H) 70 - 99 mg/dL 06/03/2024 1:13 PM [facility] CALCIUM 9.6 8.8 - 10.4 mg/dL 06/03/2024 1:13 PM [facility] Comment: Reference ranges for this test were updated on 02/29/2024 to reflect our healthy population more accurately. Reference range changes are not retroactively applied to results, but previous results using the same methodology can be interpreted in the context of the new reference range. BUN 12 6 - 20 mg/dL 06/03/2024 1:13 PM [facility] CREATININE 0.74 0.50 - 0.90 mg/dL 06/03/2024 1:13 PM [facility] BUN/CREAT RATIO 16 10 - 20 1:13 PM [facility] eGFR >90 >90 mL/min/1.7 3m2 06/03/2024 1:13 PM [facility] Comment:As of 2021, eG FR is calculated by the CKD-EPI creatinine equation without race adjustment. eGFR can be influenced by muscle mass, exercise, and diet. The reported eGFR is an estimation only and is only applicable if the renal function is stable. Blood BLOOD SPECIMEN / Unknown IV Start / Unknown 06/03/2024 12:51 PM [facility] 06/03/2024 12:54 PM [facility] us Ben Swan MD CHEMISTRY Final Res ult [facility] [place] [address], * XR CHEST 2 VIEWS PA AND LATERAL (06/03/2024 12:34 PM CROP OR GRAIN FARMER) Only the most recent of7 resultswithin the time period is included. Anatomical Region Laterality Modality CHEST, THORAX, Lung, HEART Compu frank Radiography 06/03/2024 12:3 4 PM CROP OR GRAIN FARMER Impressions 06/03/2024 1:03 PM CROP OR GRAIN FARMER Faintly visible nodularity mid and lower lungs correspond to pulmonary nodules on recent CT. No focal pulmonary consolidation. No pleural effusion. No pneumothorax. Heart size normal. Port anterior right chest wall with right-sided CVC low SVC. In addition, there is a left-sided port anterior left chest wall with left CVC tip also in the low SVC. Narrative 06/03/2024 1:03 PM CROP OR GRAIN FARMER For Patients: As a result of the Cures Act, medical imaging exams and procedure reports are released immediately into your electronic medical record. You may view this report before your referring provider. If you have questions, please contact your health care provider. EXAM: XR CHEST 2 VIEWS PA AND LATERAL LOCATION: [facility] DATE: 06/03/2024 INDICATION: Chest pain. COMPARISON: [...] CHEST 2 VIEWS PA AND LATERAL LOCATION: [facility] DATE: 06/03/2024 INDICATION: Chest pain. COMPARISON: [...] * EKG 12 LEAD (06/03/2024 11:48 AM CROP OR GRAIN FARMER) Only the most recent of10 resultswithin the [...] NOW QTc 454 ms BEYOND NOW P Sapphire 54 degrees BEYOND NOW R Sapphire 55 degrees BEYOND NOW T Sapphire 31 degrees BEYOND NOW 06/03/2024 11:4 8 AM CROP OR GRAIN FARMER 06/04/2024 3:27 AM CROP OR GRAIN FARMER Narrative BEYOND NOW - 06/04/2024 3:27 AM CROP OR GRAIN FARMER Test Indication: chest pain [facility] EKG ORD Final Result [place] NOW [place], [place] * (ABNORMAL) HEMOGLOBIN (05/29/2024 2:23 PM CROP OR GRAIN FARMER) Only the most recent of3 resultswithin the time period is included. HEMOGLOBIN 7.1(L) 12.0 - 16.0 g/dL 05/29/2024 2:32 PM CROP OR GRAIN FARMER [facility] MCV 93 80 - 100 fL 05/29/2024 2:32 PM CROP OR GRAIN FARMER [facility] Blood BLOOD SPECIMEN / Unknown IV Start / Unknown 05/29/2024 2:23 PM CROP OR GRAIN FARMER 05/29/2024 2:30 PM CROP OR GRAIN FARMER Ana Pacheco MD HEMATOLOGY Final Result Performing Organization Address City/[facility]/ZIP Co de Phone Number [facility] [address] [place] [id number], * (ABNORMAL) RED CELL MORPHOLOGY (05/07/2024 6:20 PM CROP OR GRAIN FARMER) Only the most recent of9 resultswithin the time period is included. POLYCHROMASIA Moderate 05/07/2024 6:33 PM CROP OR GRAIN FARMER [facility] TARGET CELLS Moderate 05/07/2024 6:33 PM CROP OR GRAIN FARMER [facility] RBC COMMENT Present(A) RBC morphology appears normal, RBC morphology within normal limits for newborns. 05/07/2024 6:33 PM CROP OR GRAIN FARMER [facility] *SICKLE CELLS Present 05/07/2024 6:33 PM CROP OR GRAIN FARMER [facility] Blood BLOOD SPECIMEN / Unknown Butterfly / Unknown 05/07/2024 6:20 PM CROP OR GRAIN FARMER 05/07/2024 6:23 PM CROP OR GRAIN FARMER Caryn Rasmussen MD HEMATOLOGY Final Result [facility] [address] [place] [address], [place] [phone] * PLATELET ESTIMATE (05/07/2024 6:20 PM CROP OR GRAIN FARMER) Only the most recent of9 resultswithin the time period is included. PLATELET ESTIMATE Adequate Adequate, No estimate 05/07/2024 6:33 PM CROP OR GRAIN FARMER [facility] Blood BLOOD SPECIMEN / Unknown Butterfly / Unknown 05/07/2024 6:20 PM CROP OR GRAIN FARMER 05/07/2024 6:23 PM CROP OR GRAIN FARMER Caryn Rasmussen MD HEMATOLOGY Final Result [facility] [address] [place] [address], * (ABNORMAL) CBC W PLT NO DIFF (05/07/2024 6:20 PM CROP OR GRAIN FARMER) Only the most recent of5 resultswithin the time period is included. WHITE BLOOD COUNT 15.6(H) 4.5 - 11.0 thou/cu mm 05/07/2024 6:33 PM CROP OR GRAIN FARMER [facility] RED BLOOD COUNT 2.71(L) 4.00 - 5.20 mil/cu mm 05/07/2024 6:33 PM CROP OR GRAIN FARMER [facility] HEMOGLOBIN 8.7(L) 12.0 - 16.0 g/dL 05/07/2024 6:33 PM CROP OR GRAIN FARMER [facility] HEMATOCRIT 25.4(L) 33.0 - 51.0 % 05/07/2024 6:33 PM CROP OR GRAIN FARMER [facility] MCV 94 80 - 100 fL 05/07/2024 6:33 PM CROP OR GRAIN FARMER [facility] MCH 32.1 26.0 - 34.0 pg 05/07/2024 6:33 PM CROP OR GRAIN FARMER [facility] MCHC 34.3 32.0 - 36.0 g/dL 05/07/2024 6:33 PM CROP OR GRAIN FARMER [facility] RDW 23.3(H) 11.5 - 15.5 % 05/07/2024 6:33 PM CROP OR GRAIN FARMER [facility] PLATELET COUNT 356 140 - 440 thou/cu mm 05/07/2024 6:33 PM CROP OR GRAIN FARMER [facility] MPV 9.8 6.5 - 11.0 fL 05/07/2024 6:33 PM CROP OR GRAIN FARMER [facility] NRBC 2.0 % 05/07/2024 6:33 PM CROP OR GRAIN FARMER [facility] ABS NRBC 0.3 thou /cu mm 05/07/2024 6:33 PM CROP OR GRAIN FARMER [facility] Blood BLOOD SPECIMEN / Unknown Butterfly / Unknown 05/07/2024 6:20 PM CROP OR GRAIN FARMER 05/07/2024 6:23 PM CROP OR GRAIN FARMER Caryn Rasmussen MD HEMATOLOGY Final Result Performing Organization Address [facility] Co de Phone Number [facility] [address] [place] [address], [place] [phone] * (ABNORMAL) RETICULOCYTES (05/07/2024 6:20 PM CROP OR GRAIN FARMER) Only the most recent of14 resultswithin the time period is included. RETIC% 20.3(H) 0.5 - 1.5 % 05/07/2024 6:34 PM CROP OR GRAIN FARMER [facility] RETIC (ABSOLUTE) 0.55(H) 0.03 - 0.08 mil/cu mm 05/07/2024 6:34 PM CROP OR GRAIN FARMER [facility] Blood BLOOD SPECIMEN / Unknown Butterfly / Unknown 05/07/2024 6:20 PM CROP OR GRAIN FARMER 05/07/2024 6:23 PM CROP OR GRAIN FARMER Caryn Rasmussen MD HEMATOLOGY Final Result Performing Organization Address City/[facility]/ZIP Co de Phone Number [facility] [address] [place] [address], [place] [phone] * LIPASE (05/07/2024 6:20 PM CROP OR GRAIN FARMER) Only the most recent of2 resultswithin the time period is included. LIPASE 35.9 13.0 - 60.0 IU/L 05/07/2024 6:53 PM CROP OR GRAIN FARMER [facility] Blood BLOOD SPECIMEN / Unknown Butterfly / Unknown 05/07/2024 6:20 PM CROP OR GRAIN FARMER 05/07/2024 6:23 PM CROP OR GRAIN FARMER Caryn Rasmussen MD CHEMISTRY Final Result [facility] [address] [place] [address], * (ABNORMAL) HEPATIC FUNCTION PANEL (05/07/2024 6:20 PM CROP OR GRAIN FARMER) Only the most recent of2 resultswithin the time period is included. ALBUMIN 4.4 4.0 - 4.9 g/dL 05/07/2024 6:53 PM CROP OR GRAIN FARMER [facility] PROTEIN,TOTAL 8.1(H) 6.0 - 8.0 g/dL 05/07/2024 6:53 PM CROP OR GRAIN FARMER [facility] BILIRUBIN,TOTAL 2.2(H) 0.0 - 1.2 mg/dL 05/07/2024 6:53 PM CROP OR GRAIN FARMER [facility] BILIRUBIN,DIRECT 0.9(H) 0.0 - 0.2 mg/dL 05/07/2024 6:53 PM CROP OR GRAIN FARMER [facility] BILIRUBIN,INDIRE CT 1.3(H) 0.2 - 0.8 mg/dL 05/07/2024 6:53 PM CROP OR GRAIN FARMER [facility] ALK PHOSPHATASE 120(H) 35 - 104 IU/L 05/07/2024 6:53 PM CROP OR GRAIN FARMER [facility] ALT (SGPT) 28 10 - 35 IU/L 05/07/2024 6:53 PM CROP OR GRAIN FARMER [facility] AST (SGOT) 46(H) 10 - 35 IU/L 05/07/2024 6:53 PM CROP OR GRAIN FARMER [facility] Blood BLOOD SPECIMEN / Unknown Butterfly / Unknown 05/07/2024 6:20 PM CROP OR GRAIN FARMER 05/07/2024 6:23 PM CROP OR GRAIN FARMER Caryn Rasmussen MD CHEMISTRY Final Result [facility] [address] [id number], * CT CHEST PE STUDY (05/04/2024 1:46 AM CROP OR GRAIN FARMER) Anatomical Region Laterality Modality CHEST, THORAX, HEART Computed To mography 05/04/2024 1:46 AM CROP OR GRAIN FARMER Impressions 05/04/2024 2:01 AM CROP OR GRAIN FARMER 1. No pulmonary embolus. 2. Multiple small bilateral pulmonary nodules and mild enlargement of right hilar lymph nodes not significantly changed from the recent study of 04/06/2024. Differential diagnosis includes inflammatory/infectious and neoplastic etiologies. Narrative 05/04/2024 2:01 AM CROP OR GRAIN FARMER For Patients: As a result of the Century Cures Act, medical imaging exams and procedure reports are released immediately into your electronic medical record. You may view this report before your referring provider. If you have questions, please contact your health care provider. EXAM: CT CHEST PE STUDY LOCATION: [facility] DATE: 05/04/2024 INDICATION: Pulmonary embolism (PE) [...] provider. EXAM: CT CHEST PE STUDY LOCATION: [facility] DATE: 05/04/2024 INDICATION: Pulmonary embolism (PE) [...] EXAM REFLEXED PER CRITERIA (05/04/2024 12:07 AM CROP OR GRAIN FARMER) COLOR Yellow Yellow Color 05/04/2024 12:18 AM CROP OR GRAIN FARMER [facility] CLARITY Clear Clear Clarity 05/04/2024 12:18 AM CROP OR GRAIN FARMER [facility] SPECIFIC GRAVITY,URINE 1.015 1.010, 1.015, 1.020, 1.025 05/04/2024 12:18 AM CROP OR GRAIN FARMER [facility] PH,URINE 7.0 6.0, 7.0, 8.0, 5.5, 6.5, 7.5, 8.5 05/04/2024 12:18 AM CROP OR GRAIN FARMER [facility] UROBILINOGEN,Q UALITATIVE Normal Normal EU/dl 05/04/2024 12:18 AM CROP OR GRAIN FARMER [facility] PROTEIN, URINE Negative Negative mg/dL 05/04/2024 12:18 AM [facility] GLUCOSE, URINE Negative Negative mg/dL 05/04/2024 12:18 AM CROP OR GRAIN FARMER [facility] KETONES,URINE Negative Negative mg/dL 05/04/2024 12:18 AM CROP OR GRAIN FARMER [facility] BILIRUBIN,URIN E Negative Negative 05/04/2024 12:18 AM CROP OR GRAIN FARMER [facility] OCCULT BLOOD,URINE Negative Negative 05/04/2024 12:18 AM CROP OR GRAIN FARMER [facility] NITRITE Negative Negative 05/04/2024 12:18 AM CROP OR GRAIN FARMER [facility] LEUKOCYTE ESTERASE Negative Negative 05/04/2024 12:18 AM CROP OR GRAIN FARMER [facility] Urine URINE SPECIMEN / Unknown Non-Blood / Unknown 05/04/2024 12:07 AM CROP OR GRAIN FARMER 05/04/2024 12:13 AM CROP OR GRAIN FARMER us Anika Mccracken MD URINE Final Resu lt [facility] [address] [place] [address], [place] [phone] * URINE (05/04/2024 12:07 AM CROP OR GRAIN FARMER) ,URIN E Negative Negative 05/04/2024 12:22 AM CROP OR GRAIN FARMER [facility] Urine URINE SPECIMEN / Unknown Non-Blood / Unknown 05/04/2024 12:07 AM CROP OR GRAIN FARMER 05/04/2024 12:13 AM CROP OR GRAIN FARMER Anika Mccracken MD URINE Final Resu lt [facility] [address] [place] [address], * CWS PATH REVIEW HEMATOLOGY (05/03/2024 11:52 PM CROP OR GRAIN FARMER) PATH COMMENT Comment: 05/06/2024 7:30 AM CROP OR GRAIN FARMER [facility] Comment:Frequent sickle cell s. Reviewed by Dr. Richar Huffman on 05/05/2024 Blood BLOOD SPECIMEN / Unknown IV Start / Unknown 05/03/2024 11:52 PM CROP OR GRAIN FARMER 05/03/2024 11:52 PM CROP OR GRAIN FARMER Anika Mccracken MD LABORATORY Final Resu lt [facility] [address] [place] [address], [place] * (ABNORMAL) MANUAL DIFFERENTIAL (05/03/2024 11:52 PM CROP OR GRAIN FARMER) Only the most recent of4 resultswithin the time period is included. % NEUTROPHILS 55.0 % 05/04/2024 12:13 AM CROP OR GRAIN FARMER [facility] % LYMPHOCYTES 33.0 % 05/04/2024 12:13 AM CROP OR GRAIN FARMER [facility] % MONOCYTES 10.0 % 05/04/2024 12:13 AM CROP OR GRAIN FARMER [facility] % EOSINOPHILS 2.0 % 05/04/2024 12:13 AM CROP OR GRAIN FARMER [facility] % BASOPHILS 0.0 % 05/04/2024 12:13 AM CROP OR GRAIN FARMER [facility] NEUTROPHILS ABSOLUTE 10.6(H) 1.7 - 7.0 thou/cu mm 05/04/2024 12:13 AM CROP OR GRAIN FARMER [facility] LYMPHOCYTES ABSOLUTE 6.3(H) 0.9 - 2.9 thou/cu mm 05/04/2024 12:13 AM CROP OR GRAIN FARMER [facility] MONOCYTES ABSOLUTE 1.9(H) <0.9 thou/cu mm 05/04/2024 12:13 AM CROP OR GRAIN FARMER [facility] EOSINOPHILS ABSOLUTE 0.4 <0.5 thou/cu mm 05/04/2024 12:13 AM CROP OR GRAIN FARMER [facility] BASOPHILS ABSOLUTE 0.0 <0.3 thou/cu mm 05/04/2024 12:13 AM CROP OR GRAIN FARMER [facility] Blood BLOOD SPECIMEN / Unknown IV Start / Unknown 05/03/2024 11:52 PM CROP OR GRAIN FARMER 05/03/2024 11:52 PM CROP OR GRAIN FARMER Anika Mccracken MD HEMATOLOGY Final Resu lt [facility] [address] [place] [address], * (ABNORMAL) D-DIMER,QUANTITATIVE (05/03/2024 11:52 PM CROP OR GRAIN FARMER) D-DIMER,QUANTI TATIVE 1.51(H) <=0.49 FEU mcg/mL 05/04/2024 12:28 AM CROP OR GRAIN FARMER [facility] Blood BLOOD SPECIMEN / Unknown IV Start / Unknown 05/03/2024 11:52 PM CROP OR GRAIN FARMER 05/03/2024 11:52 PM CROP OR GRAIN FARMER Narrative [facility] - 05/04/2024 12:28 AM CROP OR GRAIN FARMER The cut off value for exclusion of Deep Vein Thrombosis and / or Pulmonary Embolism is 0.50 FEU mcg/mL For patients greater than 50 years of age the upper limit is age dependent and was calculated with the formula: (PATIENT AGE x 0.01) FEU mcg/mL = Upper limit of normal range us Anika Mccracken MD HEMATOLOGY Final Resu lt [facility] [address] [place] [address], * TYPE AND SCREEN ONLY (04/20/2024 4:43 PM CROP OR GRAIN FARMER) Only the most recent of2 resultswithin the time period is included. [facility] ABORH A Rh Positive 04/20/2024 5:20 PM CROP OR GRAIN FARMER [facility] Comment:Comment: Performed b y [facility], [address] [place] [address] ANTIBODY SCREEN Negative Negative 04/20/2024 5:20 PM CROP OR GRAIN FARMER [facility] Comment:Comment: Performed b y [facility], [address] [place] [address] SPECIMEN EXPIRATION DATE/TIME 04/23/24 23:59 04/20/2024 5:20 PM CROP OR GRAIN FARMER [facility] Blood BLOOD SPECIMEN / Unknown Butterfly / Unknown 04/20/2024 4:43 PM CROP OR GRAIN FARMER 04/20/2024 4:48 PM CROP OR GRAIN FARMER Maria Teresa S[facility] BLOOD B[facility] Final Result Performing Organization Address City/[facility]/ZIP Co de Phone Number [facility] [address] [place] [address], [place] [phone] [facility] [address] [place] [address] * XR ANKLE 3 VIEWS LEFT (04/18/2024 5:09 AM CROP OR GRAIN FARMER) Anatomical Region Laterality Modality ANKLES, ANKLE L Computed Radiogr aphy 04/18/2024 5:09 AM CROP OR GRAIN FARMER Impressions 04/18/2024 5:11 AM CROP OR GRAIN FARMER Normal joint spaces and alignment. No fracture. No significant soft tissue swelling. Ankle mortise intact. Narrative 04/18/2024 5:11 AM CROP OR GRAIN FARMER For Patients: As a result of the Cures Act, medical imaging exams and procedure reports are released immediately into your electronic medical record. You may view this report before your referring provider. If you have questions, please contact your health care provider. EXAM: XR ANKLE 3 VIEWS LEFT LOCATION: [facility] DATE: 04/18/2024 INDICATION: Pain COMPARISON: None. Procedure Note Jayden Correa MD - 04/18/2024 For Patients: As a result of the s Act, medical imagingexams and procedure reports are released immediately into your electronicmedical record. You may view this report before your referring provider.If you have questions, please contact your health care provider. EXAM: XR ANKLE 3 VIEWS LEFT LOCATION: [facility] DATE: 04/18/2024 INDICATION: Pain COMPARISON: None. IMPRESSION: Normal joint spaces and alignment. No fracture. No significant soft tissueswelling. Ankle mortise intact. Elizabeth Duffy MD GENERAL IMAGING Final Res ult * C-REACTIVE PROTEIN (04/18/2024 4:59 AM CROP OR GRAIN FARMER) Only the most recent of4 resultswithin the time period is included. C-REACTIVE PROTEIN <0.3 <0.5 mg/dL 04/18/2024 5:43 AM CROP OR GRAIN FARMER [facility] Blood BLOOD SPECIMEN / Unknown Butterfly / Unknown 04/18/2024 4:59 AM CROP OR GRAIN FARMER 04/18/2024 5:02 AM CROP OR GRAIN FARMER Elizabeth Duffy MD CHEMISTRY Final Res ult [facility] [address] [place] [address], [place] [phone] * SEDIMENTATION RATE (04/18/2024 4:58 AM CROP OR GRAIN FARMER) Only the most recent of3 resultswithin the time period is included. SEDIMENTATION RATE 6 <20 mm/hr 2023 5:17 AM CROP OR GRAIN FARMER [facility] Blood BLOOD SPECIMEN / Unknown Butterfly / Unknown 04/18/2024 4:58 AM CROP OR GRAIN FARMER 04/18/2024 5:02 AM CROP OR GRAIN FARMER us Elizabeth Duffy MD HEMATOLOGY Final Res ult [facility] [address] [place] [address], [place] [phone] * XR HIP 2 OR 3 VIEWS W PELVIS LEFT (04/15/2024 6:34 PM CROP OR GRAIN FARMER) Anatomical Region Laterality Modality HIPS, HIPL, Pelvis Computed Radi ography 04/15/2024 6:34 PM CROP OR GRAIN FARMER Impressions 04/15/2024 6:46 PM CROP OR GRAIN FARMER No acute fracture or subluxation. Sclerosis of the left femoral head in keeping with osteonecrosis. No articular surface collapse. There is additional patchy sclerosis throughout the pelvis greatest in the right iliac bone which may represent additional osteonecrosis. Hip joint spaces are grossly preserved. 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 Narrative 04/15/2024 6:46 PM CROP OR GRAIN FARMER For Patients: As a result of the Cures Act, medical imaging exams and procedure reports are released immediately into your electronic medical record. You may view this report before your referring provider. If you have questions, please contact your health care provider. EXAM: XR HIP 2 OR 3 VIEWS W PELVIS LEFT LOCATION: [facility] DATE: 04/15/2024 INDICATION: left hip pain, history [...] US ABDOMEN LIMITED GALLBLADDER (04/06/2024 9:38 PM CROP OR GRAIN FARMER) Anatomical Region Laterality Modality Abdomen Ultrasound 04/06/2024 9:38 PM CROP OR GRAIN FARMER Impressions 04/06/2024 9:46 PM CROP OR GRAIN FARMER 1. Cholelithiasis. Otherwise negative. Narrative 04/06/2024 9:46 PM CROP OR GRAIN FARMER For Patients: As a result of the Cures Act, medical imaging exams and procedure reports are released immediately into your electronic medical record. You may view this report before your referring provider. If you have questions, please contact your health care provider. EXAM: US ABDOMEN LIMITED GALLBLADDER LOCATION: [facility] DATE: 04/06/2024 INDICATION: Right upper quadrant [...] provider. EXAM: US ABDOMEN LIMITED GALLBLADDER LOCATION: [facility] DATE: 04/06/2024 INDICATION: Right upper quadrant [...] (ABNORMAL) COMP METABOLIC PANEL (04/06/2024 8:55 PM CROP OR GRAIN FARMER) SODIUM 140 136 - 145 mmol/L 04/06/2024 9:20 PM CROP OR GRAIN FARMER [facility] POTASSIUM 4.5 3.5 - 5.1 mmol/L 04/06/2024 9:20 PM CROP OR GRAIN FARMER [facility] CHLORIDE 108(H) 98 - 107 mmol/L 04/06/2024 9:20 PM CROP OR GRAIN FARMER [facility] CO2,TOTAL 21(L) 22 - 29 mmol/L 04/06/2024 9:20 PM CROP OR GRAIN FARMER [facility] ANION GAP 11 5 - 18 04/06/2024 9:20 PM CROP OR GRAIN FARMER [facility] GLUCOSE 103(H) 70 - 99 mg/dL 04/06/2024 9:20 PM CROP OR GRAIN FARMER [facility] CALCIUM 9.6 8.8 - 10.4 mg/dL 04/06/2024 9:20 PM CROP OR GRAIN FARMER [facility] Comment: Reference ranges for this test were updated on 02/29/2024 to reflect our healthy population more accurately. Reference range changes are not retroactively applied to results, but previous results using the same methodology can be interpreted in the context of the new reference range. BUN 8 6 - 20 mg/dL 04/06/2024 9:20 PM CROP OR GRAIN FARMER [facility] CREATININE 0.78 0.50 - 0.90 mg/dL 04/06/2024 9:20 PM CROP OR GRAIN FARMER [facility] BUN/CREAT RATIO 10 10 - 20 9:20 PM CROP OR GRAIN FARMER [facility] eGFR >90 >90 mL/min/1.7 3m2 04/06/2024 9:20 PM CROP OR GRAIN FARMER [facility] Comment:As of 2021, eG FR is calculated by the CKD-EPI creatinine equation without race adjustment. eGFR can be influenced by muscle mass, exercise, and diet. The reported eGFR is an estimation only and is only applicable if the renal function is stable. ALBUMIN 4.7 4.0 - 4.9 g/dL 04/06/2024 9:20 PM CROP OR GRAIN FARMER [facility] PROTEIN,TOTAL 8.6(H) 6.0 - 8.0 g/dL 04/06/2024 9:20 PM CROP OR GRAIN FARMER [facility] BILIRUBIN,TOTAL 1.6(H) 0.0 - 1.2 mg/dL 04/06/2024 9:20 PM CROP OR GRAIN FARMER [facility] ALK PHOSPHATASE 124(H) 35 - 104 IU/L 04/06/2024 9:20 PM CROP OR GRAIN FARMER [facility] ALT (SGPT) 36(H) 10 - 35 IU/L 04/06/2024 9:20 PM CROP OR GRAIN FARMER [facility] AST (SGOT) 37(H) 10 - 35 IU/L 04/06/2024 9:20 PM [facility] Blood BLOOD SPECIMEN / Unknown Butterfly / Unknown 04/06/2024 8:55 PM CROP OR GRAIN FARMER 04/06/2024 9:00 PM CROP OR GRAIN FARMER Tanmay SUTTON CHEMISTRY Final R esult [facility] [address] [place] [address], [place] [phone] * TROPONIN T (HS) ACUTE W/2HR REFLEX (04/04/2024 6:54 PM CROP OR GRAIN FARMER) TROPONIN T HS <6 6-10 ng/L ng/L 04/04/2024 7:31 PM CROP OR GRAIN FARMER [facility] Blood BLOOD SPECIMEN / Unknown Butterfly / Unknown 04/04/2024 6:54 PM CROP OR GRAIN FARMER 04/04/2024 6:57 PM CROP OR GRAIN FARMER Narrative [facility] - 04/04/2024 7:31 PM CROP OR GRAIN FARMER hs-cTnT (Elecsys Troponin T Gen 5) concentration [...] CHEMISTRY Final Re sult Performing Organization Address [facility] Co de Phone Number [facility] [address] [place] [address], * (ABNORMAL) PLATELET COUNT (03/30/2024 8:15 AM CROP OR GRAIN FARMER) Only the most recent of2 resultswithin the time period is included. PLATELET COUNT 531(H) 140 - 440 thou/cu mm 03/30/2024 8:22 AM CROP OR GRAIN FARMER [facility] MPV 9.7 6.5 - 11.0 fL 03/30/2024 8:22 AM CROP OR GRAIN FARMER [facility] Blood BLOOD SPECIMEN / Unknown Venipuncture / Unknown 03/30/2024 8:15 AM CROP OR GRAIN FARMER 03/30/2024 8:18 AM CROP OR GRAIN FARMER Albino Loco MD HEMATOLOGY Final Resu lt Performing Organization Address [facility] Co de Phone Number [facility] [address] [place] [id number], * (ABNORMAL) WHITE BLOOD COUNT (03/30/2024 8:15 AM CROP OR GRAIN FARMER) Only the most recent of2 resultswithin the time period is included. WHITE BLOOD COUNT 11.8(H) 4.5 - 11.0 thou/cu mm 03/30/2024 8:22 AM CROP OR GRAIN [employer]ER [facility] NRBC 0.3 % 03/30/2024 8:22 AM CROP OR GRAIN FARMER [facility] ABS NRBC 0.0 thou /cu mm 03/30/2024 8:22 AM CROP OR GRAIN FARMER [facility] Blood BLOOD SPECIMEN / Unknown Venipuncture / Unknown 03/30/2024 8:15 AM CROP OR GRAIN FARMER 03/30/2024 8:18 AM CROP OR GRAIN FARMER Albino Loco MD HEMATOLOGY Final Resu lt [facility] [address] [place] [id number], [place] [phone] * (ABNORMAL) SODIUM (03/30/2024 8:15 AM CROP OR GRAIN FARMER) SODIUM 135(L) 136 - 145 mmol/L 03/30/2024 8:39 AM CROP OR GRAIN FARMER [facility] Blood BLOOD SPECIMEN / Unknown Venipuncture / Unknown 03/30/2024 8:15 AM CROP OR GRAIN FARMER 03/30/2024 8:18 AM CROP OR GRAIN FARMER Albino Loco MD CHEMISTRY Final Resu lt Performing Organization Address City/[facility]/ZIP Co de Phone Number [facility] [address] [place] [id number], [place] [phone] * POTASSIUM (03/30/2024 8:15 AM CROP OR GRAIN FARMER) POTASSIUM 4.3 3.5 - 5.1 mmol/L 03/30/2024 8:39 AM CROP OR GRAIN FARMER [facility] Blood BLOOD SPECIMEN / Unknown Venipuncture / Unknown 03/30/2024 8:15 AM CROP OR GRAIN FARMER 03/30/2024 8:18 AM CROP OR GRAIN FARMER Albino Loco MD CHEMISTRY Final Resu lt [facility] [address] [place] [id number], [place] [phone] * CREATININE (03/30/2024 8:15 AM CROP OR GRAIN FARMER) eGFR >90 >90 mL/min/1.7 3m2 03/30/2024 8:39 AM CROP OR GRAIN FARMER [facility] Comment:As of 2021, eG FR is calculated by the CKD-EPI creatinine equation without race adjustment. eGFR can be influenced by muscle mass, exercise, and diet. The reported eGFR is an estimation only and is only applicable if the renal function is stable. CREATININE 0.56 0.50 - 0.90 mg/dL 03/30/2024 8:39 AM CROP OR GRAIN FARMER [facility] Blood BLOOD SPECIMEN / Unknown Venipuncture / Unknown 03/30/2024 8:15 AM CROP OR GRAIN FARMER 03/30/2024 8:18 AM CROP OR GRAIN FARMER Albino Loco MD CHEMISTRY Final Resu lt [facility] [address] [place] [id number], * (ABNORMAL) BILIRUBIN,TOTAL (03/29/2024 5:44 AM CROP OR GRAIN FARMER) BILIRUBIN,TOTA L 1.8(H) 0.0 - 1.2 mg/dL 03/29/2024 6:45 AM CROP OR GRAIN FARMER [facility] Blood BLOOD SPECIMEN / Unknown Venipuncture / Unknown 03/29/2024 5:44 AM CROP OR GRAIN FARMER 03/29/2024 6:20 AM CROP OR GRAIN FARMER Casey CASIANO CHEMISTRY Liss l Result [facility] [address] [place] [id number], * (ABNORMAL) Bilirubin, total/direct FOR ADD ON (03/28/2024 7:53 PM CROP OR GRAIN FARMER) BILIRUBIN,TOTA L 2.4(H) 0.0 - 1.2 mg/dL 03/28/2024 9:52 PM CROP OR GRAIN FARMER [facility] BILIRUBIN,DIRE CT 0.9(H) 0.0 - 0.2 mg/dL 03/28/2024 9:52 PM CROP OR GRAIN FARMER [facility] BILIRUBIN,HERBERT RECT 1.5(H) 0.2 - 0.8 mg/dL 03/28/2024 9:52 PM CROP OR GRAIN FARMER [facility] Blood BLOOD SPECIMEN / Unknown IV Start / Unknown 03/28/2024 7:53 PM CROP OR GRAIN FARMER 03/28/2024 7:57 PM CROP OR GRAIN FARMER Casey CASIANO CHEMISTRY Liss l Result [address] [id number], * BLOOD CULTURE (03/28/2024 2:17 AM CROP OR GRAIN FARMER) Only the most recent of2 resultswithin the time period is included. Pathologist [facility] CULTURE No Growth. 04/02/2024 9:01 AM CROP OR GRAIN FARMER [facility] Blood BLOOD SPECIMEN / Unknown Venipuncture / Unknown 03/28/2024 2:17 AM CROP OR GRAIN FARMER 03/28/2024 2:20 AM CROP OR GRAIN FARMER Mor Ramsey MD MICROBIOLOGY Final Result [facility] [address] [place] [id number], * PROCALCITONIN (03/28/2024 2:06 AM CROP OR GRAIN FARMER) PROCALCITONIN 0.05 ng/ml 03/28/2024 4:15 AM [facility] Blood BLOOD SPECIMEN / Unknown Venipuncture / Unknown 03/28/2024 2:06 AM CROP OR GRAIN FARMER 03/28/2024 2:20 AM CROP OR GRAIN FARMER Narrative [facility] - 03/28/2024 4:15 AM CROP OR GRAIN FARMER Procalcitonin for initial assessment of Lower Respiratory [...] Mor Ramsey MD SEND OUTS Final Result [facility] [address] [facility] [place] [id number], [place] [phone] from Last 3 Months Insurance [employer] [place] [facility] [place] [id number] [facility] Advance Directives * Full Code (Latest Code Status on File) Date Activated Date Inactivated Comments 03/28/2024 10:36 PM 03/30/2024 11:39 AM Question Answer Comments Code Status Discussion: Reviewed Preferences * Full Code Date Activated Date Inactivated Comments 03/16/2024 1:29 AM 03/18/2024 1:58 PM Question Answer Comments Code Status Discussion: Reviewed Preferences Care Teams Field Assistant Relationship Specialty Start Date End Date Veronica Joseph MD [address] [place] [id number] PCP - General Family Practice 03/29/24
--- OUTSIDE RECORDS SUMMARY | 2024-06-25 14:29 | XMS_ITS | Encounter Summary ---
Author Organization [place] Address [address] [place] [address] Care Team Providers Care Emery Grinder Name Role Phone No Ref-Primary, Physician Primary Care Provider Mor Ramsey Unavailable Unavailable Case Samuel MD Unavailable [phone] Reason for Referral * Diagnostic Imaging MRI (Routine) - Pending Review Specialty Diagnoses / Procedures Referred By Sahhid pendleton Referred To Contact Radiology. 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 If you don't hear from a patient representative within 2 business days, please call . Additional Information: History of hemoglobin SS disease. History of retinopathy reported from care in [place] but not in a long time. Requesting eye exam for retinopathy Comments Please be aware that coverage of these services is subject to the terms and limitations of your health insurance plan. Call member services at your health plan with any benefit or coverage questions. [facility] [place] will call you to coordinate your care as prescribed by your provider. If you don't hear from a patient representative within 2 business days, please call . 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 Requesting eval for further management per ortho's expertise. Scheduling Instructions: [facility] will call you to coordinate your care as prescribed by your provider. A patient representative will call you within 2 business days to help you schedule your appointment, or you may contact the Voicer Cordwainer at: . Comments Please be aware that coverage of these services is subject to the terms and limitations of your health insurance plan. Call member services at your health plan with any benefit or coverage questions. [facility] will call you to coordinate your care as prescribed by your provider. A patient representative will call you within 2 business days to help you schedule your appointment, or you may contact the Voicer Cordwainer at: . 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 If you don t hear from a patient representative within 2 business days, please call . Additional Information: History of symptomatic gallstones due to sickle cell disease. Previous workup in [place], [place] ([facility] prior to moving here. Was moving towards cholecystectomy but ended up moving sooner. Requesting eval for gallstones. Comments Please be aware that coverage of these services is subject to the terms and limitations of your health insurance plan. Call member services at your health plan with any benefit or coverage questions. [facility] will call you to coordinate your care as prescribed by the provider. If you don t hear from a patient representative within 2 business days, please call . CAL OFFICE CLERK Reason for Visit * Reason Comments Oncology Clinic Visit Sickle cell pain c risis * Consultation (Urgent: 3-5 Days) - Pending Review Specialty Diagnoses / Procedures Referred By Contac t Referred To Contact Medical Oncology Diagnoses 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 (H) Mor Ramsey Referral ID Status Reason Start Date Expiration Date V isits Requested Visits Authorized [id number] Pending Review 03/28/2024 03/28/2025 1 1 Encounter Details Date Type Department Care Team (Late st Contact Info) Description 05/01/2024 11:00 AM MEDICAL OFFICE CLERK Oncology Visit [facility] [address] [place] [address] Case Samuel MD [address] [facility] [place] [address], [address] [place] [address] History of transfusion (Primary Dx); [...] file Legal Sex Female 8:25 AM MEDICAL OFFICE CLERK Gender Identity Not on file Sexual Orientation Not on file documented as of this encounter Last Filed Vital Signs Vital Sign Reading Time Taken Comments Blood Pressure 93/62 05/01/2024 10:50 AM MEDICAL OFFICE CLERK Pulse 93 05/01/2024 10:50 AM MEDICAL OFFICE CLERK Temperature 36.8 C (98.2 F) 05/01/2024 10:50 AM MEDICAL OFFICE CLERK Respiratory Rate 16 05/01/2024 10:50 AM MEDICAL OFFICE CLERK Oxygen Saturation 98% 05/01/2024 10:50 AM MEDICAL OFFICE CLERK Inhaled Oxygen Concentration - - Weight 51 kg (112 lb 6.4 oz) 05/01/2024 10:50 AM MEDICAL OFFICE CLERK Height 159.9 cm (5' 2.95) 05/01/2024 10:[address] Body Mass Index 19.94 05/01/2024 10:50 AM MEDICAL OFFICE CLERK documented in this encounter Progress Notes [...] She said that she was born in [place] but moved throughout her childhood because her dad was in the . She is the youngest of 9 children she said, though she is the only one with sickle cell disease. Among other places, she was living in [place] for a time and then moved to [place]. It was there that shemet her boyfriend. She ultimately moved back to [place] and he came with her. It was there that they had a daughter Chanda, now 2 years old. That was a difficult for her, and she feelslike she never wants to be again. She was living in [place], [place] and receiving care at [facility], though she did not get the sense that house director there was super comfortable with sickle cell [...] about 3 weeks ago. She moved to [place] about 2 months ago. Her boyfriend is [...] worked up for symptomatic gallstones back in [place], but there were some delays in getting a cholecystectomy and by the time it was getting scheduled, they were moving to [place]. She reports that she has had a [...] them both so she can be a nlim-nk-jmdc mom. Sickle Cell Disease Comprehensive Checklist Stroke/silent [...] titrate as needed and notify the primary house director via Qoof message if changes to the plan below are needed. 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 GENERAL APPEARANCE: healthy, alert [...] she knows. Even though she lives in [place], she is very willing to come to the [place] to get her care and use the [...] around the hip and femur strong. -Orthopedic front office assistant referral placed. Will defer to them for [...] per the note Case Samuel MD Classical Group Fitness Assistant Department Head Division of Hematology, Oncology, and Transplantation [facility] Physicians [facility] CAL OFFICE CLERK CAL OFFICE CLERK documented in this encounter Nursing Notes [...] Provider was notified. Pharmacy name entered into [employer]: [facility] [address] [facility], [place] - [facility] [facility] [place], [place] - [address] [facility] Frailty Screening: Is the patient here for a new oncology consult visit in cancer care? 2. No Clinical concerns: Patient states no new concerns to discuss with provider. 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) Gallstones Expected: 05/01/2024 (Approximate), Expires: 05/01/2025 Orthopedic Voicer Referral Referral Routine: Next available opening 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 Author Pain Management General On track( 025 12:40 PM MEDICAL OFFICE CLERK) Yes Juhi Benson, RN Note: Goal [...] Genotype Red Blood Cell (05/29/2024 11:23 AM MEDICAL OFFICE CLERK) See Scanned Result GENOTYPE RED BLOOD CELL-Scanned 05/31/2024 10:16 AM MEDICAL OFFICE CLERK [facility] Blood VENOUS LINE / Unknown IVAD (Port) / Unknown 05/29/2024 11:23 AM MEDICAL OFFICE CLERK 05/29/2024 11:29 AM MEDICAL OFFICE CLERK us Case Samuel MD LAB - BLOOD ORDERABLES Fi nal Result [facility] [address] [place] [address], [facility] [phone] * (ABNORMAL) HGB Eval Reflex to ELP or RBC Solubility (05/29/2024 11:23 AM MEDICAL OFFICE CLERK) Hemoglobin A 15.0(L) 95.0 - 97.9 % 05/31/2024 2:46 PM MEDICAL OFFICE CLERK [facility] Hemoglobin A2 3.0 2.0 - 3.5 % 05/31/2024 2:46 PM MEDICAL OFFICE CLERK [facility] Hemoglobin F 10.8(H) 0.0 - 2.1 % 05/31/2024 2:46 PM MEDICAL OFFICE CLERK [facility] Hemoglobin S 71.2(H) 0.0 - 0.0 % 05/31/2024 2:46 PM MEDICAL OFFICE CLERK [facility] Hemoglobin C 0.0 0.0 - 0.0 % 05/31/2024 2:46 PM MEDICAL OFFICE CLERK [facility] Hemoglobin E 0.0 0.0 - 0.0 % 05/31/2024 2:46 PM MEDICAL OFFICE CLERK [facility] Hemoglobin - Other 0.0 0.0 - 0.0 % 05/31/2024 2:46 PM MEDICAL OFFICE CLERK [facility] Hemoglobin Evaluation See Note 05/31/2024 2:46 PM MEDICAL OFFICE CLERK [facility] Comment: Impression: Hb S [...] by Alpha Globin (HBA1 and HBA2) Deletion/Duplication ([facility] test #[id number]) should be considered. Hb S/beta-plus thalassemia is typically characterized by more Hb S than Hb A with the presence of microcytosis. If microcytosis is present and Hb S/beta-plus thalassemia is suspected, Beta Globin (HBB) Sequencing ([facility] test #[id number]) is suggested. Hemoglobin analysis should be offered [...] developed and its performance characteristics determined by [facility]. It has not been cleared or approved by the U.S. Food and Drug Administration. This test was performed in a CLIA-certified laboratory and is intended for clinical purposes. Sickle Cell Solubility Reflex Positive(A) 05/31/2024 2:46 PM MEDICAL OFFICE CLERK [facility] Comment: INTERPRETIVE INFORMATION: Sickle Cell Solubility Reflex Not Performed: Solubility testing for Hemoglobin S not indicated. 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 Additional charges apply. Conf Previous: Positive for Hemoglobin S by HPLC. Solubility testing performed previously and not repeated with this submission. Hgb Capillary Electrophoresis Reflex Performed 05/31/2024 2:46 PM MEDICAL OFFICE CLERK [facility] Comment: INTERPRETIVE INFORMATION: Hgb Capillary Electrophoresis Reflex Not Performed: Confirmation by Capillary Electrophoresis not indicated. Performed: Results confirmed by Capillary Electrophoresis. Additional charges apply. Conf Previous: Capillary Electrophoresis confirmation performed as part of a previous submission. Confirmation not repeated with this submission. Performed By: [facility] [address] [place] [id number] Account Support Associate: Devon Healy MD, PhD CLIA Number: [id number] Blood VENOUS LINE / Unknown IVAD (Port) / Unknown 05/29/2024 11:23 AM MEDICAL OFFICE CLERK 05/29/2024 11:30 AM MEDICAL OFFICE CLERK Case Samuel MD LAB - BLOOD ORDERABLES Fi nal Result [facility] [address] [place] [id number], [facility] [phone] * (ABNORMAL) Ferritin (05/29/2024 11:23 AM MEDICAL OFFICE CLERK) Ferritin 1,559(H) 6 - 175 ng/mL 05/29/2024 12:43 PM MEDICAL OFFICE CLERK [facility] Blood VENOUS LINE / Unknown IVAD (Port) / Unknown 05/29/2024 11:23 AM MEDICAL OFFICE CLERK 05/29/2024 11:29 AM MEDICAL OFFICE CLERK Case Samuel MD LAB - BLOOD ORDERABLES Fi nal Result [facility] [address] 1[address] [place] [address] * (ABNORMAL) Routine UA with micro reflex to culture (05/29/2024 11:23 AM MEDICAL OFFICE CLERK) Color Urine Yellow Colorless, Straw, Light Yellow, Yellow 05/29/2024 11:41 AM MEDICAL OFFICE CLERK [facility] Appearance Urine Slightly Cloudy(A) Clear 05/29/2024 11:41 AM MEDICAL OFFICE CLERK [facility] Glucose Urine Negative Negative mg/dL 05/29/2024 11:41 AM [facility] Bilirubin Urine Negative Negative 11:41 AM [facility] Ketones Urine Negative Negative mg/dL 05/29/2024 11:41 AM [facility] Specific [place] Urine 1.013 1.003 - 1.035 05/29/2024 11:41 AM [facility] Blood Urine Negative Negative 05/29/2024 11:41 AM [facility] pH Urine 7.0 5.0 - 7.0 05/29/2024 11:41 AM MEDICAL OFFICE CLERK [facility] Protein Albumin Urine Negative Negative mg/dL 05/29/2024 11:41 AM [facility] Urobilinogen Urine Normal Normal, 2.0 mg/dL 05/29/2024 11:41 AM [facility] Nitrite Urine Negative Negative 05/29/2024 11:41 AM [facility] Leukocyte Esterase Urine Moderate(A) Negative 05/29/2024 11:41 AM MEDICAL OFFICE CLERK [facility] Mucus Urine Present(A) None Seen /LPF 05/29/2024 11:41 AM [facility] RBC Urine 6(H) <=2 /HPF 05/29/2024 11:41 AM [facility] WBC Urine 3 <=5 /HPF 05/29/2024 11:41 AM [facility] Squamous Epithelials Urine 18(H) <=1 /HPF 05/29/2024 11:41 AM [facility] Urine URINE SPECIMEN OBTAINED BY CLEAN CATCH PROCEDURE / Unknown Non-blood Collection / Unknown 05/29/2024 11:23 AM MEDICAL OFFICE CLERK 05/29/2024 11:29 AM MEDICAL OFFICE CLERK Narrative [facility] - 05/29/2024 11:41 AM MEDICAL OFFICE CLERK Urine Culture ordered based on laboratory criteria us Case Samuel MD LAB - URINE ORDERABLES Fi nal Result [facility] [address] [facility] 1st [place] [address] * (ABNORMAL) Comprehensive metabolic panel (05/29/2024 11:23 AM MEDICAL OFFICE CLERK) Sodium 139 135 - 145 mmol/L 05/29/2024 11:58 AM [facility] Potassium 4.2 3.4 - 5.3 mmol/L 05/29/2024 11:58 AM [facility] Carbon Dioxide (CO2) 24 22 - 29 mmol/L 05/29/2024 11:58 AM [facility] Anion Gap 10 7 - 15 mmol/L 05/29/2024 11:58 AM [facility] Urea Nitrogen 9.2 6.0 - 20.0 mg/dL 05/29/2024 11:58 AM [facility] Creatinine 0.75 0.51 - 0.95 mg/dL 05/29/2024 11:58 AM [facility] GFR Estimate >90 >60 mL/min/1.7 3m2 05/29/2024 11:58 AM [facility] Comment:eGFR calculated usin 2020 CKD-EPI equation. Calcium 8.9 8.8 - 10.4 mg/dL 05/29/2024 11:58 AM [facility] Chloride 105 98 - 107 mmol/L 05/29/2024 11:58 AM [facility] Glucose 109(H) 70 - 99 mg/dL 05/29/2024 11:58 AM [facility] Alkaline Phosphatase 83 40 - 150 U/L 05/29/2024 11:58 AM [facility] AST 49(H) 0 - 45 U/L 05/29/2024 11:58 AM [facility] ALT 21 0 - 50 U/L 05/29/2024 11:58 AM [facility] Protein Total 7.3 6.4 - 8.3 g/dL 05/29/2024 11:58 AM [facility] Albumin 4.1 3.5 - 5.2 g/dL 05/29/2024 11:58 AM [facility] Bilirubin Total 2.2(H) <=1.2 mg/dL 05/29/2024 11:58 AM [facility] Blood VENOUS LINE / Unknown IVAD (Port) / Unknown 05/29/2024 11:23 AM MEDICAL OFFICE CLERK 05/29/2024 11:29 AM MEDICAL OFFICE CLERK us Case Samuel MD LAB - BLOOD ORDERABLES Fi nal Result [facility] [address] [facility] 1st [place] [address] * (ABNORMAL) Reticulocyte count (05/29/2024 11:23 AM MEDICAL OFFICE CLERK) % Reticulocyte 29.8(H) 0.5 - 2.0 % 05/29/2024 12:00 PM MEDICAL OFFICE CLERK [facility] Absolute Reticulocyte 0.631(H) 0.025 - 0.095 10e6/uL 05/29/2024 12:00 PM MEDICAL OFFICE CLERK [facility] Blood VENOUS LINE / Unknown IVAD (Port) / Unknown 05/29/2024 11:23 AM MEDICAL OFFICE CLERK 05/29/2024 11:29 AM MEDICAL OFFICE CLERK Case Samuel MD LAB - BLOOD ORDERABLES Fi nal Result [facility] Clinics and Surgery [address] 1[address] [place] [address] * (ABNORMAL) Vitamin D deficiency screening (04/28/2024 1:50 AM MEDICAL OFFICE CLERK) Vitamin D, Total (25-Hydroxy) 8(L) 20 - 50 ng/mL 05/01/2024 6:42 PM MEDICAL OFFICE CLERK [facility] Comment:severe deficiency Blood BLOOD SPECIMEN / Unknown Venipuncture / Unknown 04/28/2024 1:50 AM MEDICAL OFFICE CLERK 04/28/2024 1:53 AM MEDICAL OFFICE CLERK Narrative [facility] - 05/01/2024 6:42 PM MEDICAL OFFICE CLERK Season, race, dietary intake, and treatment affect the concentration of 65-gcyqrab-Ybznftv D. Values may decrease during winter months and increase during summer months. Vitamin D determination is routinely performed by an immunoassay specific for 25 hydroxyvitamin D3. If an individual is on vitamin D2(ergocalciferol) supplementation, please specify 25 [place] vitamin D2 and D3 level determination by LCMSMS test VITD23. us Case Samuel MD LAB - BLOOD ORDERABLES Fi nal Result [facility] [address] [facility] [place] [address] documented in this encounter Visit Diagnoses Diagnosis [...] Rule Out COVID-05/08/2024 05/08/2024 05/08/2024 8:18 PM MEDICAL OFFICE CLERK Rule Out COVID-05/16/2024 05/16/2024 05/16/2024 10:46 PM MEDICAL OFFICE CLERK documented as of this encounter Care Teams Emery Grinder Relationship Specialty Start Date End Date No Ref-Primary, Physician PCP - General 03/15/24 06/17/24 Mor Ramsey Medical Student 04/03/24 Case Samuel MD [address] [place] [address] [address] [place] [address] Assigned Pediatric Specialist Provider 05/18/24 documented as of this encounter
--- OUTSIDE RECORDS SUMMARY | 2024-06-25 14:30 | XMS_ITS | Encounter Summary ---
Author Organization [facility] Address [address] [place] [address] Care Team Providers Care Porcelain Enameling Supervisor Name Role Phone No Ref-Primary, Physician Primary Care Provider Mor Ramsey Unavailable Unavailable Case Samuel MD Unavailable [phone] Reason for Referral * Therapeutic Imaging/IR (Routine: Next available opening) - Closed Specialty Diagnoses / Procedures Referred By Contac t Referred To Contact Radiology. 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) [...] on file Legal Sex Female 8:25 AM BIOLOGICAL INSPECTOR Gender Identity Not on file Sexual Orientation Not on file documented as of this encounter Last Filed Vital Signs Vital Sign Reading Time Taken Comments Blood Pressure 100/60 05/25/2024 4:00 PM BIOLOGICAL INSPECTOR Pulse 92 05/25/2024 3:00 PM BIOLOGICAL INSPECTOR Temperature 36.9 C (98.5 F) 05/25/2024 11:09 AM BIOLOGICAL INSPECTOR Respiratory Rate 16 05/25/2024 4:00 PM BIOLOGICAL INSPECTOR Oxygen Saturation 98% 05/25/2024 4:00 PM BIOLOGICAL INSPECTOR Inhaled Oxygen Concentration - - Weight 51.1 kg (112 lb 9.6 oz) 05/25/2024 11:09 AM BIOLOGICAL INSPECTOR Height - - Body Mass Index 21.28 05/23/2024 4:48 PM BIOLOGICAL INSPECTOR documented in this encounter Discharge Instructions * Discharge Instructions* Hattie Ballesteros RN - 05/25/2024 3:24 PM BIOLOGICAL INSPECTOR Images from the original note were not included. [facility] Interventional Radiology Discharge Instructions Following Port Placement You had a 2 ports placed. On the right side of your chest is a apheresis port and on the left side of your chest in a smart port. A port is a small medical services assistant that is placed under the skin and isconnected to a vein with a catheter (thin, flexible tube). Ports can be used to administer IV medications (including chemotherapy), fluids or blood products or for blood lab draws. Please follow the below instructions after your procedure: Your Ports has been closed with Raleigh Allen (Skin Glue) If there is any [...] port placement for further instructions for this. [facility] INTERVENTIONAL RADIOLOGY DEPARTMENT Procedure Physician: Myron Michel MD Date of procedure: May 25, 2024 Telephone Numbers: [phone] Wednesday-Wednesday 7:30 am to 4:00 pm [phone] After 4:00 pm Wednesday-Wednesday, Weekends & Holidays. Ask for the Interventional Radiologist educational recruiter. Someone is educational recruiter 24 hrs/day [facility] toll free number: Wednesday-Wednesday 8:00 am to 4:30 pm [facility] Emergency Dept: [phone] IF YOU ARE EXPERIENCING A MEDICAL EMERGENCY PLEASE CALL 911 OGICAL INSPECTOR OGICAL INSPECTOR documented in this encounter Medications at [...] to s/o who is driving patient home. OGICAL INSPECTOR * Hattie Ballesteros RN - 05/25/2024 3:07 PM CST Patient returned s/p bilateral port placement with apheresis port on the right and smart port on the left, both with dermabond, intact no bleeding or swelling. Patient c/o 7/10 pain, RN called Dr. Anglin and got home dose of dilaudid ordered. Patient alert and oriented, RASS of 0. Will discharge once meeting criteria. OGICAL INSPECTOR * Hattie Ballesteros RN - 05/25/2024 12:32 PM CST Patient prepped for port placement x 2. Patient will have a power port and a apharesis IV port. Consent signed. PIV placed in left AC by vascular, IV antibiotic running. Appropriately NPO. Patient has sickle cell disease, reports pain okay today. S/o Vineet will be picking patient up. OGICAL INSPECTOR documented in this encounter Procedure Notes * Myron Michel MD - 05/25/2024 2:55 PM CSTAssociated Order(s): IR Procedure Note [facility] Procedure: IR Procedure Note Date/Time: 05/25/2024 2:54 [...] the procedure a time out was called [place] Protocol: the Joint Commission [place] Protocol was followed Preparation: Patient was prepped and draped in usual sterile fashion ANESTHESIA Anesthesia: Local infiltration Local Anesthetic: Lidocaine 1% without epinephrine SEDATION Patient Sedated: Yes Sedation Type: Moderate (conscious) sedation Sedation: Fentanyl and midazolam Vital signs: Vital signs monitored during sedation See dictated procedure note for full details. Findings: Successful bilateral port placement apheresis on the right, 6 kuwaiti smart port on the left Specimens: none Procedural Complications: None Condition: Stable Plan: 1 hour bedrest then okay to discharge PROCEDURE Describe Procedure: Successful bilateral port placement apheresis on the right, 6 kuwaiti smart porton the left Patient Tolerance: Patient tolerated the procedure well with no immediate complications Length of time physician/provider present for 1:1 monitoring during sedation: 83-97 min OGICAL INSPECTOR documented in this encounter Miscellaneous Notes * [...] mcg of fentanyl Sedation time: 97 minutes ([id number]) Report given to: Juhi Aviles RN Type Caster: n/a Other Notes: Pt arrived to IR [...] (5 mL). Pt transferred back to . OGICAL INSPECTOR * Pre-Procedure - Juan Story PA-Jefferson - 05/25/2024 11:37 AM BIOLOGICAL INSPECTOR GENERAL PRE-PROCEDURE: Procedure: Port placement x2 Date/Time: [...] data, medications, and the plan for sedation OGICAL INSPECTOR documented in this encounter Plan of Treatment Not on file documented as of this encounter Goals Goal Patient Goal Type Associated Problems Recent Progress Patient-Stated? 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) HCG QUALITATIVE URINE Routine 05/25/2024 12:03 PM BIOLOGICAL INSPECTOR documented in this encounter Results * IR Procedure Note (05/25/2024 2:54 PM BIOLOGICAL INSPECTOR) Narrative Myron Michel MD - 05/25/2024 2:54 PM BIOLOGICAL INSPECTOR Myron Michel MD 05/25/2024 2:55 PM [facility] Procedure: IR Procedure Note Date/Time: 05/25/2024 2:54 [...] the procedure a time out was called [place] Protocol: the Joint Commission [place] Protocol was followed Preparation: Patient was prepped and draped in usual sterile fashion ANESTHESIA Anesthesia: Local infiltration Local Anesthetic: Lidocaine 1% without epinephrine SEDATION Patient Sedated: Yes Sedation Type: Moderate (conscious) sedation Sedation: Fentanyl and midazolam Vital signs: Vital signs monitored during sedation See dictated procedure note for full details. Findings: Successful bilateral port placement apheresis on the right, 6 kuwaiti smart port on the left Specimens: none Procedural Complications: None Condition: Stable Plan: 1 hour bedrest then okay to discharge PROCEDURE Describe Procedure: Successful bilateral port placement apheresis on the right, 6 kuwaiti smart port on the left Patient Tolerance: Patient tolerated the procedure well with no immediate complications Length of time physician/provider present for 1:1 monitoring during sedation: 83-97 min us Myron Michel MD PROCEDURE/MINOR SURGICAL ORDERA BLES Final Result * IR Chest Port Placement > 5 Yrs of Age (05/25/2024 2:47 PM BIOLOGICAL INSPECTOR) Anatomical Region Laterality Modality Chest Radio Fluoroscop y Impressions 05/25/2024 5:26 PM BIOLOGICAL INSPECTOR IMPRESSION: Insertion of right-sided apheresis chest port, [...] mg Versed Sedation time: 97 minutes ATTENDING [id number] SEDATION TIME: less than 5 minutes. Access [...] placed: BD PowerFlow apheresis port Catheter size (Greek): 9.6 Lumens: Single-lumen Power injectable: Yes Catheter [...] JASWINDER COOPER MD Narrative 05/25/2024 5:26 PM BIOLOGICAL INSPECTOR PROCEDURE: Venous port placement Procedural Personnel Attending [...] mg Versed Sedation time: 97 minutes ATTENDING BGIB-IP-[id number] SEDATION TIME: less than 5 minutes. Access [...] placed: BD PowerFlow apheresis port Catheter size (Greek): 9.6 Lumens: Single-lumen Power injectable: Yes Catheter [...] 4 Yrs of Age (05/25/2024 2:47 PM BIOLOGICAL INSPECTOR) Anatomical Region Laterality Modality Chest Radio Fluoroscop y Impressions 05/25/2024 5:23 PM BIOLOGICAL INSPECTOR IMPRESSION: Insertion of left-sided 6 Greek chest port, with catheter tip in the [...] mg Versed Sedation time: 97 minutes ATTENDING [id number] SEDATION TIME: 5 minutes. Access Local anesthesia [...] AngioDynamics Plastic CT Smart Port Catheter size (Greek): 6 Lumens: Single-lumen Power injectable: Yes Catheter [...] JASWINDER COOPER MD Narrative 05/25/2024 5:23 PM BIOLOGICAL INSPECTOR PROCEDURE: Venous port placement Procedural Personnel Attending [...] immediate complications. IMPRESSION: Insertion of left-sided 6 Greek chest port, with catheter tip in the [...] mg Versed Sedation time: 97 minutes ATTENDING [id number] SEDATION TIME: 5 minutes. Access Local anesthesia [...] AngioDynamics Plastic CT Smart Port Catheter size (Greek): 6 Lumens: Single-lumen Power injectable: Yes Catheter [...] * HCG qualitative urine (05/25/2024 12:03 PM BIOLOGICAL INSPECTOR) hCG Urine Qualitative Negative Negative JARET 05/25/2024 12:34 PM BIOLOGICAL INSPECTOR [facility] Comment:This test is for scr eening purposes. Results should be interpreted along with the clinical picture. Confirmation testing is available if warranted by ordering [id number], HCG Quantitative . Urine MID-STREAM URINE SPECIMEN / Unknown Non-blood Collection / Unknown 05/25/2024 12:03 PM BIOLOGICAL INSPECTOR 05/25/2024 12:19 PM BIOLOGICAL INSPECTOR us Jaswinder Cooper MD LAB - URINE ORDERABLES [facility] Result [facility] Core Lab [address] [facility], [address] [id number] documented in this encounter Visit [...] ative Pharmacoprophylaxis $New Bag 05/25/2024 12:17 PM BIOLOGICAL INSPECTOR 2 g 200 mL/hr fentaNYL (PF) (SUBLIMAZE) [...] physician., IR Intra-procedure $Given 05/25/2024 2:38 PM BIOLOGICAL INSPECTOR 25 mcg $Given 05/25/2024 2:25 PM BIOLOGICAL INSPECTOR 50 mcg $Given 05/25/2024 2:16 PM BIOLOGICAL INSPECTOR 25 mcg flumazenil (ROMAZICON) injection 0.2 mg [...] $Given by Other Clinician 05/25/2024 1:40 PM BIOLOGICAL INSPECTOR 5,000 Units heparin lock flush 100 unit/mL injection 5 mL 5 mL, Intracatheter, ONCE, On Citlali 05/25/24 at 1330, For 1 dose, Left chest port $Given by Other Clinician 05/25/2024 2:30 PM BIOLOGICAL INSPECTOR 5 mLs HYDROmorphone (DILAUDID) tablet 2 mg 2 mg, Oral, ONCE PRN, severe pain, Starting on Citlali 05/25/24 at 1507, For 1 dose $Given 05/25/2024 3:16 PM BIOLOGICAL INSPECTOR 2 mg lidocaine (LMX4) cream Topical, EVERY [...] $Given by Other Clinician 05/25/2024 1:58 PM BIOLOGICAL INSPECTOR 40 mLs midazolam (VERSED) injection 0.5-2 mg [...] dose., IR Intra-procedure $Given 05/25/2024 2:38 PM BIOLOGICAL INSPECTOR 0.5 mg $Given 05/25/2024 2:25 PM BIOLOGICAL INSPECTOR 1 mg $Given 05/25/2024 2:16 PM BIOLOGICAL INSPECTOR 0.5 mg naloxone (NARCAN) injection 0.2 mg [...] Recently Administered Medications Times are shown in BIOLOGICAL INSPECTOR. Scheduled Medication Order 05/23/2024 05/24/2024 05/25/2024 ceFAZolin [...] Hattie Ballesteros RN)[id number] (Stopped - Provider: Marly Narveaz RN) heparin lock flush 10 unit/mL injection [...] procedure documented in this encounter Care Teams Porcelain Enameling Supervisor Relationship Specialty Start Date End Date No Ref-Primary, Physician PCP - General 03/15/24 06/17/24 Mor Ramsey Medical Student 04/03/24 Case Samuel MD [address] [place] [address] [address] [place] [address] Assigned Pediatric Specialist Provider 05/18/24 documented as of this encounter
--- OUTSIDE RECORDS SUMMARY | 2024-06-25 14:30 | XMS_ITS | Encounter Summary ---
Author Organization [facility] Address [address] [place] [address] Care Team Providers Care Credit Risk Officer Name Role Phone No Ref-Primary, Physician Primary Care Provider Mor Ramsey Unavailable Unavailable Case Samuel MD Unavailable [phone] Reason for Visit * Reason Onset Date Comments Refill Request 05/22/2024 Encounter Details Date Type Department Care Team ([facility] st Contact Info) Description 05/22/2024 MyC Refill [facility] [address] [place] [address] Case Samuel MD [address] [place] [address] [address], [address] [place] [address] Refill Request Social History Tobacco [...] on file Legal Sex Female 8:25 AM PUBLIC WORKS COMMISSIONER Gender Identity Not on file Sexual Orientation [...] and by whom: Dr. Samuel on 05/01/2024 MEDICAL SURGICAL TECH Reviewed: Yes Send to provider: Dr. Samuel and ESTEVAN Reynaga . IC WORKS COMMISSIONER documented in this encounter Plan of Treatment Not on file documented as of this encounter Goals Goal Patient Goal Type Associated Problems Recent Progress Patient-Stated? Author Pain Management General On track( 025 12:40 PM PUBLIC WORKS COMMISSIONER) Yes Juhi Benson, SOFIA Note: Goal Statement: [...] crisis documented in this encounter Care Teams Credit Risk Officer Relationship Specialty Start Date End Date No Ref-Primary, Physician PCP - General 03/15/24 06/17/24 Mor Ramsey Medical Student 04/03/24 Case Samuel MD [address] [place] [address] [address], [address] [place], [place] [id number] Assigned Pediatric Specialist Provider 05/18/24 documented as of this encounter
--- OUTSIDE RECORDS SUMMARY | 2024-06-25 14:30 | XMS_ITS | Encounter Summary ---
Author Organization [place] Address [address] [place] [address]. [place] [address] Care Team Providers Care Cvt Rn Name Role Phone No Ref-Primary, Physician Primary Care Provider Mor Ramsey Unavailable Unavailable Reason for Visit * Reason Comments Sickle Cell Pain Crisis Encounter Details Date Type Department Care Team (Late st Contact Info) Description 05/14/2024 10:07 PM INNER TUBE TUBER MACHINE OPERATOR - 05/15/2024 12:14 AM [facility] Emergency [facility] Emergency Room [facility] [place] [phone] Marguerite Ponce PA-C [facility] [address] [place] [id number] Sickle cell pain crisis (H) Discharge Disposition: [...] on file Legal Sex Female 8:25 AM INNER TUBE TUBER MACHINE OPERATOR Gender Identity Not on file Sexual Orientation Not on file documented as of this encounter Last Filed Vital Signs Vital Sign Reading Time Taken Comments Blood Pressure 113/64 05/15/2024 12:03 AM INNER TUBE TUBER MACHINE OPERATOR Pulse 97 05/15/2024 12:11 AM INNER TUBE TUBER MACHINE OPERATOR Temperature 36.7 C (98 F) 05/14/2024 9:33 PM INNER TUBE TUBER MACHINE OPERATOR Respiratory Rate 16 05/14/2024 9:33 PM INNER TUBE TUBER MACHINE OPERATOR Oxygen Saturation 94% 05/15/2024 12:11 AM INNER TUBE TUBER MACHINE OPERATOR Inhaled Oxygen Concentration - - Weight 52.2 kg (115 lb) 05/14/2024 9:33 PM INNER TUBE TUBER MACHINE OPERATOR Height 154.9 cm (5' 1) 05/14/2024 9:33 PM INNER TUBE TUBER MACHINE OPERATOR Body Mass Index 21.73 05/14/2024 9:33 PM INNER TUBE TUBER MACHINE OPERATOR documented in this encounter Discharge Instructions * Discharge Instructions* Marguerite Ponce PA-C - 05/15/2024 12:02 AM INNER TUBE TUBER MACHINE OPERATOR You were seen in the ER today [...] clinic for management of your sickle cell. R TUBE TUBER MACHINE OPERATOR documented in this encounter Medications at [...] questions were answered. Vitally stable upon discharge. R TUBE TUBER MACHINE OPERATOR * Ana Leon RN - 05/14/2024 9:35 PM CST Reports sickle cell crisis and hurts all over Seen here yesterday for same symptoms Triage Assessment (Adult) Row Name 05/14/243 Triage Assessment Airway WDL WDL Respiratory WDL Respiratory WDL WDL Skin Circulation/Temperature WDL Skin Circulation/Temperature WDL WDL Cardiac WDL Cardiac WDL WDL Peripheral/Neurovascular WDL Peripheral Neurovascular WDL WDL Cognitive/Neuro/Behavioral WDL Cognitive/Neuro/Behavioral WDL WDL R TUBE TUBER MACHINE OPERATOR * Marguerite Ponce PA-C - 05/14/2024 9:33 [...] with other provider:Did you involve another provider (databases computer consultant, , pharmacy, etc.)?: No Discharge. No [...] 1,000 mL (0 mLs Intravenous Stopped 05/14/24 3813) HYDROmorphone (DILAUDID) injection 2 mg (2 mg [...] of 15:38 Rate: 97 BPM Rhythm: sinus Kopperl: 19 81 58 [place] Interval: 142 ms QRS Interval: 80 ms [...] my direction. Marguerite Ponce PA-C Emergency Medicine [facility] EMERGENCY ROOM Marguerite Ponce PA-C 05/15/24 0004 R TUBE TUBER MACHINE OPERATOR documented in this encounter Plan of Treatment Not on file documented as of this encounter Goals Goal Patient Goal Type Associated Problems Recent Progress Patient-Stated? Author Pain Management General On track( 025 12:40 PM INNER TUBE TUBER MACHINE OPERATOR) Yes Juhi Benson, SOFIA Note: [...] MANUAL DIFFERENTIAL STAT 05/14/2024 1 0:24 PM INNER TUBE TUBER MACHINE OPERATOR CBC WITH PLATELETS AND DIFFERENTIAL STAT 05/14/2024 10:24 PM INNER TUBE TUBER MACHINE OPERATOR TROPONIN T, HIGH SENSITIVITY STAT 05/14/2024 10:24 PM INNER TUBE TUBER MACHINE OPERATOR CBC WITH PLATELETS & DIFFERENTIAL STAT 05/14/2024 10:24 PM INNER TUBE TUBER MACHINE OPERATOR RETICULOCYTE COUNT STAT 05/14/2024 10 :24 PM INNER TUBE TUBER MACHINE OPERATOR HEPATIC FUNCTION PANEL STAT 05/14/2024 10:24 PM INNER TUBE TUBER MACHINE OPERATOR HCG QUALITATIVE STAT 05/14/2024 10:24 PM INNER TUBE TUBER MACHINE OPERATOR BASIC METABOLIC PANEL STAT 05/14/2024 10:24 PM INNER TUBE TUBER MACHINE OPERATOR ECG 12-LEAD WITH MUSE SJN,SJO,WWH STAT 05/14/2024 10:12 PM INNER TUBE TUBER MACHINE OPERATOR documented in this encounter Results * (ABNORMAL) Manual Differential (05/14/2024 10:24 PM INNER TUBE TUBER MACHINE OPERATOR) % Neutrophils 63 % JARET 05/14/2024 10:58 PM INNER TUBE TUBER MACHINE OPERATOR [facility] % Lymphocytes 29 % JARET 05/14/2024 10:58 PM INNER TUBE TUBER MACHINE OPERATOR [facility] % Monocytes 8 % JARET 05/14/2024 10:58 PM INNER TUBE TUBER MACHINE OPERATOR [facility] % Eosinophils 0 % JARET 05/14/2024 10:58 PM INNER TUBE TUBER MACHINE OPERATOR [facility] % Basophils 0 % JARET 05/14/2024 10:58 PM INNER TUBE TUBER MACHINE OPERATOR [facility] Absolute Neutrophils 11.3(H) 1.6 - 8.3 10e3/uL JARET 05/14/2024 10:58 PM [facility] Absolute Lymphocytes 5.2 0.8 - 5.3 10e3/uL JARET 05/14/2024 10:58 PM [facility] Absolute Monocytes 1.4(H) 0.0 - 1.3 10e3/uL JARET 05/14/2024 10:58 PM [facility] Absolute Eosinophils 0.0 0.0 - 0.7 10e3/uL JARET 05/14/2024 10:58 PM [facility] Absolute Basophils 0.0 0.0 - 0.2 10e3/uL JARET 05/14/2024 10:58 PM [facility] NRBCs per 100 WBC 1 % JARET 05/14/2024 10:58 PM [facility] Absolute NRBCs 0.2 10e3/uL JARET 05/14/2024 10:58 PM [facility] RBC Morphology Confirmed RBC Indices JARET 05/14/2024 10:58 PM [facility] Platelet Assessment Automated Count Confirmed. Platelet morphology is normal. Automated Count Confirmed. Platelet morphology is normal. JARET 05/14/2024 10:58 PM [facility] Acanthocytes Slight(A) None Seen JARET 05/14/2024 10:58 PM [facility] Elliptocytes Slight(A) None Seen JARET 05/14/2024 10:58 PM [facility] Polychromasia Slight(A) None Seen JARET 05/14/2024 10:58 PM [facility] Sickle Cells Moderate(A) None Seen [facility] 05/14/2024 10:58 PM [facility] Target Cells Slight(A) None Seen [facility] 05/14/2024 10:58 PM [facility] Blood BLOOD SPECIMEN / Unknown Venipuncture / Unknown 05/14/2024 10:24 PM [facility] 05/14/2024 10:30 PM [facility] us Marguerite Ponce PA-C LAB - BLOOD ORDERABLES Final R esult [facility] [address] [place] [address], [facility] * (ABNORMAL) CBC with platelets and differential (05/14/2024 10:24 PM INNER TUBE TUBER MACHINE OPERATOR) WBC Count 17.9(H) 4.0 - 11.0 10e3/uL 05/14/2024 10:58 PM INNER TUBE TUBER MACHINE OPERATOR [facility] RBC Count 2.32(L) 3.80 - 5.20 10e6/uL 05/14/2024 10:58 PM [facility] Hemoglobin 7.6(L) 11.7 - 15.7 g/dL 05/14/2024 10:58 PM [facility] Hematocrit 21.4(L) 35.0 - 47.0 % 05/14/2024 10:58 PM [facility] MCV 92 78 - 100 fL 05/14/2024 10:58 PM [facility] MCH 32.8 26.5 - 33.0 pg 05/14/2024 10:58 PM [facility] MCHC 35.5 31.5 - 36.5 g/dL 05/14/2024 10:58 PM [facility] RDW 24.7(H) 10.0 - 15.0 % 05/14/2024 10:58 PM [facility] Platelet Count 487(H) 150 - 450 10e3/uL 05/14/2024 10:58 PM [facility] Blood BLOOD SPECIMEN / Unknown Venipuncture / Unknown 05/14/2024 10:24 PM INNER TUBE TUBER MACHINE OPERATOR 05/14/2024 10:30 PM INNER TUBE TUBER MACHINE OPERATOR us Marguerite Ponce PA-C LAB - BLOOD ORDERABLES Final R esult [facility] [address] [place] [address], [facility] * HCG QUALitative (blood) (05/14/2024 10:24 PM INNER TUBE TUBER MACHINE OPERATOR) Pathologist [facility] hCG Serum Qualitative Negative Negative JARET 05/14/2024 10:54 PM INNER TUBE TUBER MACHINE OPERATOR [facility] Comment:This test is for scr eening purposes. Results should be interpreted along with the clinical picture. Confirmation testing is available if warranted by ordering [id number], HCG Quantitative . Blood BLOOD SPECIMEN / Unknown Venipuncture / Unknown 05/14/2024 10:24 PM INNER TUBE TUBER MACHINE OPERATOR 05/14/2024 10:30 PM INNER TUBE TUBER MACHINE OPERATOR Marguerite Ponce PA-C LAB - BLOOD ORDERABLES Final R esult Performing Organization Address [facility] Co de Phone Number [facility] [address] [place] [address] [place] [address], [facility] * Troponin T, High Sensitivity (05/14/2024 10:24 PM INNER TUBE TUBER MACHINE OPERATOR) Pathologist [facility] Troponin T, High Sensitivity <6 <=14 ng/L 05/14/2024 10:53 PM INNER TUBE TUBER MACHINE OPERATOR [facility] Comment: Either a High Sensitivity [...] Unknown Venipuncture / Unknown 05/14/2024 10:24 PM INNER TUBE TUBER MACHINE OPERATOR 05/14/2024 10:30 PM INNER TUBE TUBER MACHINE OPERATOR Marguerite Ponce PA-C LAB - BLOOD ORDERABLES Final R esult Performing Organization Address [facility] Co de Phone Number [facility] [address] [place] [address] [place] [address], [place] * (ABNORMAL) Reticulocyte count (05/14/2024 10:24 PM INNER TUBE TUBER MACHINE OPERATOR) % Reticulocyte 27.5(H) 0.5 - 2.0 % 05/14/2024 10:33 PM INNER TUBE TUBER MACHINE OPERATOR [facility] Absolute Reticulocyte 0.639(H) 0.025 - 0.095 10e6/uL 05/14/2024 10:33 PM INNER TUBE TUBER MACHINE OPERATOR [facility] Blood BLOOD SPECIMEN / Unknown Venipuncture / Unknown 05/14/2024 10:24 PM INNER TUBE TUBER MACHINE OPERATOR 05/14/2024 10:30 PM INNER TUBE TUBER MACHINE OPERATOR Marguerite Ponce PA-C LAB - BLOOD ORDERABLES Final R esult Performing Organization Address City/[facility]/ZIP Co de Phone Number [facility] [address] [place] [address] Dr. [place], [place] [address], [facility] * (ABNORMAL) Hepatic function panel (05/14/2024 10:24 PM INNER TUBE TUBER MACHINE OPERATOR) Protein Total 7.9 6.4 - 8.3 g/dL 05/14/2024 10:53 PM [facility] Albumin 4.4 3.5 - 5.2 g/dL 05/14/2024 10:53 PM [facility] Bilirubin Total 2.8(H) <=1.2 mg/dL 05/14/2024 10:53 PM [facility] Alkaline Phosphatase 120 40 - 150 U/L 05/14/2024 10:53 PM [facility] AST 67(H) 0 - 45 U/L 05/14/2024 10:53 PM [facility] ALT 51(H) 0 - 50 U/L 05/14/2024 10:53 PM [facility] Bilirubin Direct 0.70(H) 0.00 - 0.30 mg/dL 05/14/2024 10:53 PM [facility] Blood BLOOD SPECIMEN / Unknown Venipuncture / Unknown 05/14/2024 10:24 PM INNER TUBE TUBER MACHINE OPERATOR 05/14/2024 10:30 PM INNER TUBE TUBER MACHINE OPERATOR us Marguerite Ponce PA-C LAB - BLOOD ORDERABLES Final R esult Performing Organization Address City/[facility]/ZIP Co de Phone Number [address] [place] [address], [facility] * Basic metabolic panel (05/14/2024 10:24 PM INNER TUBE TUBER MACHINE OPERATOR) Sodium 136 135 - 145 mmol/L 05/14/2024 10:53 PM [facility] Potassium 4.4 3.4 - 5.3 mmol/L 05/14/2024 10:53 PM [facility] Chloride 104 98 - 107 mmol/L 05/14/2024 10:53 PM [facility] Carbon Dioxide (CO2) 22 22 - 29 mmol/L 05/14/2024 10:53 PM [facility] Anion Gap 10 7 - 15 mmol/L 05/14/2024 10:53 PM [facility] Urea Nitrogen 10.5 6.0 - 20.0 mg/dL 05/14/2024 10:53 PM [facility] Creatinine 0.78 0.51 - 0.95 mg/dL 05/14/2024 10:53 PM [facility] GFR Estimate >90 >60 mL/min/1.7 3m2 05/14/2024 10:53 PM [facility] Comment:eGFR calculated usin 2020 CKD-EPI equation. Calcium 9.0 8.8 - 10.4 mg/dL 05/14/2024 10:53 PM [facility] Comment:Reference intervals for this test were updated on 11/09/2023 to reflect our healthy population more accurately. There may be differences in the flagging of prior results with similar values performed with this method. Those prior results can be interpreted in the context of the updated reference intervals. Glucose 88 70 - 99 mg/dL 05/14/2024 10:53 PM [facility] Blood BLOOD SPECIMEN / Unknown Venipuncture / Unknown 05/14/2024 10:24 PM INNER TUBE TUBER MACHINE OPERATOR 05/14/2024 10:30 PM [facility] us Marguerite Ponce PA-C LAB - BLOOD ORDERABLES Final R esult [facility] [address] [place] [address], [facility] * ECG 12-LEAD WITH MUSE (LHE) (05/14/2024 10:12 PM [facility]) Systolic Blood Pressure mmHg RADIOLOGY RESULTS Diastolic Blood Pressure mmHg RADIOLOGY RESULTS Ventricular Rate 97 BPM RAD IOLOGY RESULTS Atrial Rate 97 BPM RADIOLOG Y RESULTS [place] Interval 142 ms RADIOLOG Y RESULTS QRS Duration 80 ms RADIOLO GY RESULTS QT 346 ms RADIOLOGY RESULTS QTc 439 ms RADIOLOGY RESULTS P Kopperl 19 degrees RADIOLOGY RESULTS R AXIS 81 degrees RADIOLOGY RESULTS T Kopperl 58 degrees RADIOLOGY RESULTS Interpretation ECG Sinus rhythm Nonspecific T wave abnormality Abnormal ECG When compared with ECG of 13-May-2024 15:38, No significant change was found Confirmed by SEE ED PROVIDER NOTE FOR, ECG INTERPRETATION (4000), slot editor SELMA GARRISON ([id number]) on 05/14/2024 11:09:33 PM RADIOLOGY RESULTS 05/14/2024 10:1 2 PM INNER TUBE TUBER MACHINE OPERATOR 05/14/2024 11:09 PM INNER TUBE TUBER MACHINE OPERATOR us Marguerite Ponce PA-C ECG ORDERABLES Edited [...] For 1 dose $Given 05/14/2024 10:45 PM INNER TUBE TUBER MACHINE OPERATOR 25 mg HYDROmorphone (DILAUDID) injection 2 mg 2 mg, Intravenous, ONCE, On 05/14/24 at 2200, For 1 dose $Given 05/14/2024 10:29 PM INNER TUBE TUBER MACHINE OPERATOR 2 mg HYDROmorphone (DILAUDID) injection 2 mg 2 mg, Intravenous, ONCE, On 05/14/24 at 2330, For 1 dose $Given 05/14/2024 11:27 PM INNER TUBE TUBER MACHINE OPERATOR 2 mg lactated ringers BOLUS 1,000 mL Intravenous, 1,000 mL, ONCE, On 05/14/24 at 2200, For 1 dose $New Bag 05/14/2024 10:29 PM INNER TUBE TUBER MACHINE OPERATOR 1,000 mLs documented in this encounter Active and Recently Administered Medications Times are shown in INNER TUBE TUBER MACHINE OPERATOR. Scheduled Medication Order 05/13/2024 05/14/2024 05/15/2024 diphenhydrAMINE (BENADRYL) capsule 25 mg (COMPLETED) 25 mg, Oral, ONCE, On 05/14/24 at 2300, For 1 dose 2245 ($Given - Provider: Phillip Schofield RN) HYDROmorphone (DILAUDID) injection 2 mg (COMPLETED) 2 mg, Intravenous, ONCE, On 05/14/24 at 2200, For 1 dose 2229 ($Given - Provider: Phillip Schfoield RN) HYDROmorphone (DILAUDID) injection 2 mg (COMPLETED) 2 mg, Intravenous, ONCE, On 05/14/24 at 2330, For 1 dose 2327 ($Given - Provider: Phillip Schofield RN) lactated ringers BOLUS 1,000 mL (COMPLETED) Intravenous, 1,000 mL, ONCE, On 05/14/24 at 2200, For 1 dose 2229 ($New Bag - Provider: Obie Schofield RN)2334 (Stopped - Provider: Obie Schofield RN) documented in this encounter Care Teams Cvt Rn Relationship Specialty Start Date End Date No Ref-Primary, Physician PCP - General 03/15/24 06/17/24 Mor Ramsey Medical Student 04/03/24 documented as of this encounter
--- OUTSIDE RECORDS SUMMARY | 2024-06-25 14:30 | XMS_ITS | Encounter Summary ---
Author Organization [place] Address [address] [place] [address]. [place] [address] Care Team Providers Care Hay Sorter Name Role Phone No Ref-Primary, Physician Primary Care Provider Mor Ramsey Unavailable Unavailable Case Samuel MD Unavailable [phone] Encounter Details Date Type Department Care Team [...] on file Legal Sex Female 8:25 AM WHEAT CLEANER Gender Identity Not on file Sexual Orientation Not on file documented as of this encounter Plan of Treatment Not on file documented as of this encounter Goals Goal Patient Goal Type Associated Problems Recent Progress Patient-Stated? Author Pain Management General On track( 025 12:40 PM WHEAT CLEANER) Yes Juhi Benson, RN Note: Goal [...] on filedocumented in this encounter Care Teams Hay Sorter Relationship Specialty Start Date End Date No Ref-Primary, Physician PCP - General 03/15/24 06/17/24 Mor Ramsey Medical Student 04/03/24 Case Samuel MD [address] [place] [address], [address] [place] [address] Assigned Pediatric Specialist Provider 05/18/24 documented as of this encounter
--- OUTSIDE RECORDS SUMMARY | 2024-06-25 14:30 | XMS_ITS | Encounter Summary ---
Author Organization [facility] Address [address] [place] [address]. [place] [address] Care Team Providers Care Shift Commander Name Role Phone No Ref-Primary, Physician Primary Care Provider Mor Ramsey Unavailable Unavailable Case Samuel MD Unavailable [phone] Encounter Details Date Type Department Care Team (Late st Contact Info) Description 05/22/2024 MyC Medical Advice [facility] Interventional Radiology [address] [place] [address] Yadi Mahan, RN Social History [...] file Legal Sex Female 8:25 AM SOCIAL SCIENCES PROFESSOR Gender Identity Not on file Sexual Orientation Not on file documented as of this encounter Plan of Treatment Not on file documented as of this encounter Goals Goal Patient Goal Type Associated Problems Recent Progress Patient-Stated? Author Pain Management General On track( 025 12:40 PM SOCIAL SCIENCES PROFESSOR) Yes Juhi Benson, SOFIA Note: Goal Statement: [...] on filedocumented in this encounter Care Teams Shift Commander Relationship Specialty Start Date End Date No Ref-Primary, Physician PCP - General 03/15/24 06/17/24 Mor Ramsey Medical Student 04/03/24 Case Samuel MD [address] [place] [address], [address] [place] [address] Assigned Pediatric Specialist Provider 05/18/24 documented as of this encounter
--- OUTSIDE RECORDS SUMMARY | 2024-06-25 14:30 | XMS_ITS | Encounter Summary ---
Author Organization [place] Address [facility] [place] [address] Care Team Providers Care Dam Tender Assistant Name Role Phone No Ref-Primary, Physician Primary Care Provider Mro Ramsey Unavailable Unavailable Encounter Details Date Type [...] on file Legal Sex Female 8:25 AM GERMINATION TESTING MANAGER Gender Identity Not on file Sexual Orientation Not on file documented as of this encounter Plan of Treatment Not on file documented as of this encounter Goals Goal Patient Goal Type Associated Problems Recent Progress Patient-Stated? Author Pain Management General On track( 025 12:40 PM GERMINATION TESTING MANAGER) Yes Juhi Benson, RN Note: Goal [...] Out COVID-19 05/16/2024 05/16/2024 05/16/2024 10:46 PM GERMINATION TESTING MANAGER documented as of this encounter Care Teams Dam Tender Assistant Relationship Specialty Start Date End Date No Ref-Primary, Physician PCP - General 03/15/24 06/17/24 Mor Ramsey Medical Student 04/03/24 documented as of this encounter
--- OUTSIDE RECORDS SUMMARY | 2024-06-25 14:30 | XMS_ITS | Encounter Summary ---
Author Organization [place] Address [address] [place] [address]. [place] [address] Care Team Providers Care Smeller Name Role Phone No Ref-Primary, Physician Primary Care Provider Mor Ramsey Unavailable Unavailable Case Samuel MD Unavailable [phone] Encounter Details Date Type Department Care Team [...] on file Legal Sex Female 8:25 AM PENAL OFFICER Gender Identity Not on file Sexual Orientation Not on file documented as of this encounter Plan of Treatment Not on file documented as of this encounter Goals Goal Patient Goal Type Associated Problems Recent Progress Patient-Stated? Author Pain Management General On track( 025 12:40 PM PENAL OFFICER) Yes Juhi Benson, RN Note: Goal [...] on filedocumented in this encounter Care Teams Smeller Relationship Specialty Start Date End Date No Ref-Primary, Physician PCP - General 03/15/24 06/17/24 Mor Ramsey Medical Student 04/03/24 Case Samuel MD [address] [place] [address], [address] [place] [address] Assigned Pediatric Specialist Provider 05/18/24 documented as of this encounter
--- OUTSIDE RECORDS SUMMARY | 2024-06-25 14:30 | XMS_ITS | Encounter Summary ---
Author Organization [place] Address [facility] [place] [address] Care Team Providers Care Restaurant Bartender Name Role Phone No Ref-Primary, Physician Primary [...] on file Legal Sex Female 8:25 AM VENETIAN BLIND MECHANIC Gender Identity Not on file Sexual Orientation Not on file documented as of this encounter Plan of Treatment Not on file documented as of this encounter Goals Goal Patient Goal Type Associated Problems Recent Progress Patient-Stated? Author Pain Management General On track( 025 12:40 PM VENETIAN BLIND MECHANIC) Yes Juhi Benson, RN Note: Goal Statement: [...] on filedocumented in this encounter Care Teams Restaurant Bartender Relationship Specialty Start Date End Date No Ref-Primary, Physician PCP - General 03/15/24 06/17/24 Mor Ramsey Medical Student 04/03/24 documented as of this encounter
--- OUTSIDE RECORDS SUMMARY | 2024-06-25 14:30 | XMS_ITS | Encounter Summary ---
Author Organization [place] Address [address] [place] [address]. [place] [address] Care Team Providers Care Chemical Production Machine Operator Name Role Phone No Ref-Primary, Physician Primary Care Provider Mor Ramsey Unavailable Unavailable Case Samuel MD Unavailable [phone] Reason for Visit * Reason Comments Chest Pain Sickle Cell Pain Crisis Encounter Details Date Type Department Care Team (Late st Contact Info) Description 05/22/2024 3:27 PM GRAINING PRESS OPERATOR - 05/22/2024 6:55 PM GRAINING PRESS OPERATOR Emergency [facility] Emergency Room Pending sale to [facility] [place] [address] Bernabe Farley MD [facility] [address] [place] [id number] Sickle cell pain crisis (H) Discharge Disposition: [...] on file Legal Sex Female 8:25 AM GRAINING PRESS OPERATOR Gender Identity Not on file Sexual Orientation Not on file documented as of this encounter Last Filed Vital Signs Vital Sign Reading Time Taken Comments Blood Pressure 111/59 05/22/2024 6:53 PM GRAINING PRESS OPERATOR Pulse 106 05/22/2024 6:52 PM GRAINING PRESS OPERATOR Temperature 36.7 C (98.1 F) 05/22/2024 3:11 PM GRAINING PRESS OPERATOR Respiratory Rate 20 05/22/2024 3:11 PM GRAINING PRESS OPERATOR Oxygen Saturation 95% 05/22/2024 6:52 PM GRAINING PRESS OPERATOR Inhaled Oxygen Concentration - - Weight 51.7 kg (114 lb) 05/22/2024 3:11 PM GRAINING PRESS OPERATOR Height 154.9 cm (5' 1) 05/22/2024 3:11 PM GRAINING PRESS OPERATOR Body Mass Index 21.54 05/22/2024 3:11 PM GRAINING PRESS OPERATOR documented in this encounter Discharge Instructions [...] RN - 05/22/2024 6:29 PM CST Bed: [facility] Expected date: Expected time: Means of arrival: Comments: Crash NING PRESS OPERATOR * Bernabe Farley MD - 05/22/2024 [...] April. Today will be the 16th visit. [id number] Patient is a 29-year-old woman with history [...] and Inpatient Record: Patient was seen at [facility] ED on 05/20/23 Care impacted by [...] Per chart review, patient was seen at [facility] ED on 05/20/24 for sickle cell [...] She has seen the oncologist at the [facility] and has future follow-up appointments for [...] my direction. Bernabe Farley M.D. Emergency Medicine Located within [facility] EMERGENCY ROOM [address] [facility] [id number] Dept: [phone] Bernabe Farley MD 05/22/247 NING PRESS OPERATOR * Sanjay Purdy RN - 05/22/2024 [...] WDL WDL Cognitive/Neuro/Behavioral WDL Cognitive/Neuro/Behavioral WDL WDL NING PRESS OPERATOR documented in this encounter Plan of Treatment Not on file documented as of this encounter Goals Goal Patient Goal Type Associated Problems Recent Progress Patient-Stated? Author Pain Management General On track( 025 12:40 PM GRAINING PRESS OPERATOR) Yes Juhi Benson, SOFIA Note: Goal [...] CHEST 2 VIEWS STAT 05/22/2024 5:19 PM GRAINING PRESS OPERATOR RBC AND PLATELET MORPHOLOGY STAT 05/22/2024 3:51 PM GRAINING PRESS OPERATOR CBC WITH PLATELETS AND DIFFERENTIAL STAT 05/22/2024 3:51 PM GRAINING PRESS OPERATOR CBC WITH PLATELETS & DIFFERENTIAL STAT 05/22/2024 3:51 PM GRAINING PRESS OPERATOR BASIC METABOLIC PANEL STAT 05/22/2024 3:51 PM GRAINING PRESS OPERATOR ECG 12-LEAD WITH MUSE SJN,SJO,WWH STAT 05/22/2024 3:14 PM GRAINING PRESS OPERATOR documented in this encounter Results * Chest XR, PA & LAT (05/22/2024 5:19 PM GRAINING PRESS OPERATOR) Anatomical Region Laterality Modality Chest Digital Radiogra phy 05/22/2024 5:19 PM GRAINING PRESS OPERATOR Impressions 05/22/2024 5:42 PM GRAINING PRESS OPERATOR IMPRESSION: Unchanged ill-defined hazy opacities in the peripheral right lung, which may correspond with nodular opacities seen on CT chest dated 05/04/2024. No new focal airspace disease. No pleural effusion or pneumothorax. The cardiomediastinal silhouette is unremarkable. Narrative 05/22/2024 5:42 PM GRAINING PRESS OPERATOR EXAM: XR CHEST 2 VIEWS LOCATION: [facility] DATE: 05/22/2024 INDICATION: L chest pain, concern for acute chest syndome COMPARISON: 05/20/2024, CT chest 05/04/2024 Procedure Note Robert Marks MD - 05/22/2024 EXAM: XR CHEST 2 VIEWS LOCATION: [facility] DATE: 05/22/2024 INDICATION: L chest pain, concern for acute chest syndome COMPARISON: 05/20/2024, CT chest 05/04/2024 IMPRESSION: Unchanged ill-defined hazy opacities in the peripheral right lung, whichmay correspond with nodular opacities seen on CT chest dated 05/04/2024. No new focal airspace disease. No pleural effusion or pneumothorax. The cardiomediastinal silhouette is unremarkable. us Bernabe Farley MD [facility] DIAGNOSTIC IMAGING ORDERA BLES Final Result * (ABNORMAL) RBC and Platelet Morphology (05/22/2024 3:51 PM GRAINING PRESS OPERATOR) [facility] RBC Morphology Confirmed RBC Indices 05/22/2024 4:30 PM GRAINING PRESS OPERATOR [facility] Platelet Assessment Automated Count Confirmed. Giant platelets are present.(A) Automated Count Confirmed. Platelet morphology is normal. JARET 05/22/2024 4:30 PM GRAINING PRESS OPERATOR [facility] Giant Platelets Slight(A) None Seen [facility] 05/22/2024 4:30 PM GRAINING PRESS OPERATOR [facility] Elliptocytes Slight(A) None Seen JARET 05/22/2024 4:30 PM GRAINING PRESS OPERATOR [facility] [place] Bodies Present(A) None Seen [facility] 05/22/2024 4:30 PM GRAINING PRESS OPERATOR [facility] Polychromasia Slight(A) None Seen JARET 05/22/2024 4:30 PM GRAINING PRESS OPERATOR [facility] RBC Fragments Slight(A) None Seen [facility] 05/22/2024 4:30 PM GRAINING PRESS OPERATOR [facility] Sickle Cells Moderate(A) None Seen [facility] 05/22/2024 4:30 PM GRAINING PRESS OPERATOR [facility] Target Cells Slight(A) None Seen [facility] 05/22/2024 4:30 PM [facility] Blood VENOUS LINE / Unknown Venipuncture / Unknown 05/22/2024 3:51 PM GRAINING PRESS OPERATOR 05/22/2024 3:54 PM GRAINING PRESS OPERATOR us Bernabe Farley MD LAB - BLOOD ORDERABLES Final Result [facility] [address] [place] [address], [place] * (ABNORMAL) CBC with platelets and differential (05/22/2024 3:51 PM GRAINING PRESS OPERATOR) WBC Count 14.5(H) 4.0 - 11.0 10e3/uL 05/22/2024 4:30 PM [facility] RBC Count 2.59(L) 3.80 - 5.20 10e6/uL 05/22/2024 4:30 PM [facility] Hemoglobin 8.2(L) 11.7 - 15.7 g/dL 05/22/2024 4:30 PM [facility] Hematocrit 23.4(L) 35.0 - 47.0 % 05/22/2024 4:30 PM [facility] MCV 90 78 - 100 fL 05/22/2024 4:30 PM [facility] MCH 31.7 26.5 - 33.0 pg 05/22/2024 4:30 PM [facility] MCHC 35.0 31.5 - 36.5 g/dL 05/22/2024 4:30 PM [facility] RDW 22.9(H) 10.0 - 15.0 % 05/22/2024 4:30 PM [facility] Platelet Count 552(H) 150 - 450 10e3/uL 05/22/2024 4:30 PM [facility] % Neutrophils 53 % 05/22/2024 4:30 PM [facility] % Lymphocytes 30 % 05/22/2024 4:30 PM [facility] % Monocytes 14 % 05/22/2024 4:30 PM [facility] % Eosinophils 1 % 05/22/2024 4:30 PM [facility] % Basophils 1 % 05/22/2024 4:30 PM [facility] % Immature Granulocytes 1 % 05/22/2024 4:30 PM [facility] NRBCs per 100 WBC 2(H) <1 /100 025 4:30 PM [facility] Absolute Neutrophils 7.7 1.6 - 8.3 10e3/uL 05/22/2024 4:30 PM [facility] Absolute Lymphocytes 4.3 0.8 - 5.3 10e3/uL 05/22/2024 4:30 PM [facility] Absolute Monocytes 2.0(H) 0.0 - 1.3 10e3/uL 05/22/2024 4:30 PM [facility] Absolute Eosinophils 0.1 0.0 - 0.7 10e3/uL 05/22/2024 4:30 PM [facility] Absolute Basophils 0.2 0.0 - 0.2 10e3/uL 05/22/2024 4:30 PM [facility] Absolute Immature Granulocytes 0.2 <=0.4 10e3/uL 05/22/2024 4:30 PM [facility] Absolute NRBCs 0.3 10e3/uL 05/22/2024 4:30 PM [facility] Blood VENOUS LINE / Unknown Venipuncture / Unknown 05/22/2024 3:51 PM GRAINING PRESS OPERATOR 05/22/2024 3:54 PM [facility] us Bernabe Farley MD LAB - BLOOD ORDERABLES Final Result [facility] [address] [place], [place] [address] * (ABNORMAL) Basic metabolic panel (05/22/2024 3:51 PM GRAINING PRESS OPERATOR) Sodium 138 135 - 145 mmol/L 05/22/2024 4:12 PM [facility] Potassium 4.8 3.4 - 5.3 mmol/L 05/22/2024 4:12 PM [facility] Chloride 107 98 - 107 mmol/L 05/22/2024 4:12 PM [facility] Carbon Dioxide (CO2) 20(L) 22 - 29 mmol/L 05/22/2024 4:12 PM [facility] Anion Gap 11 7 - 15 mmol/L 05/22/2024 4:12 PM [facility] Urea Nitrogen 9.9 6.0 - 20.0 mg/dL 05/22/2024 4:12 PM [facility] Creatinine 0.91 0.51 - 0.95 mg/dL 05/22/2024 4:12 PM [facility] GFR Estimate 87 >60 mL/min/1.7 3m2 05/22/2024 4:12 PM [facility] Comment:eGFR calculated usin 2020 CKD-EPI equation. Calcium 9.6 8.8 - 10.4 mg/dL 05/22/2024 4:12 PM GRAINING PRESS OPERATOR [facility] Comment:Reference intervals for this test were updated on 11/09/2023 to reflect our healthy population more accurately. There may be differences in the flagging of prior results with similar values performed with this method. Those prior results can be interpreted in the context of the updated reference intervals. Glucose 100(H) 70 - 99 mg/dL 05/22/2024 4:12 PM GRAINING PRESS OPERATOR [facility] Blood VENOUS LINE / Unknown Venipuncture / Unknown 05/22/2024 3:51 PM GRAINING PRESS OPERATOR 05/22/2024 3:54 PM GRAINING PRESS OPERATOR us Bernabe Farley MD LAB - BLOOD ORDERABLES Final Result Performing Organization Address City/[facility]/ZIP Co de Phone Number [facility] [address] * ECG 12-LEAD WITH MUSE (LHE) (05/22/2024 3:14 PM GRAINING PRESS OPERATOR) Systolic Blood Pressure mmHg RADIOLOGY RESULTS Diastolic Blood Pressure mmHg RADIOLOGY RESULTS Ventricular Rate 103 BPM RAD IOLOGY RESULTS Atrial Rate 103 BPM RADIOLOG Y RESULTS TN Interval 124 ms RADIOLOG Y RESULTS QRS Duration 80 ms RADIOLO GY RESULTS QT 316 ms RADIOLOGY RESULTS QTc 413 ms RADIOLOGY RESULTS P [place] 82 degrees RADIOLOGY RESULTS R AXIS 90 degrees RADIOLOGY RESULTS T [place] 70 degrees RADIOLOGY RESULTS Interpretation ECG Sinus tachycardia Rightward axis Borderline ECG When compared with ECG of 20-May-2024 07:36, Nonspecific T wave abnormality no longer evident in Anterior leads Confirmed by SEE ED PROVIDER NOTE FOR, ECG INTERPRETATION (4000), newspaper editor Leticia Warner ([id number]) on 05/22/2024 4:13:58 PM RADIOLOGY RESULTS 05/22/2024 3:14 PM GRAINING PRESS OPERATOR 05/22/2024 4:13 PM GRAINING PRESS OPERATOR us Bernabe Farley MD ECG ORDERABLES Edited Result - Final Performing Organization Address City/[facility]/ZIP Co de Phone Number RADIOLOGY RESULTS [...] For 1 dose $Given 05/22/2024 4:00 PM GRAINING PRESS OPERATOR 25 mg HYDROmorphone (DILAUDID) injection 2 mg 2 mg, Intravenous, EVERY 1 HOUR PRN, severe pain, Starting on Wed05/22/24 at 1537, For 3 doses $Given 05/22/2024 6:39 PM GRAINING PRESS OPERATOR 2 mg $Given 05/22/2024 5:33 PM GRAINING PRESS OPERATOR 2 mg $Given 05/22/2024 4:00 PM GRAINING PRESS OPERATOR 2 mg lactated ringers BOLUS 500 mL Intravenous, 500 mL, ONCE, On Wed05/22/24 at 1600, For 1 dose $New Bag 05/22/2024 4:13 PM GRAINING PRESS OPERATOR 500 mLs ondansetron (ZOFRAN) injection 4 mg 4 mg, Intravenous, ONCE, Administer over 2-5 Minutes, On Wed05/22/24 at 1600, For 1 dose $Given 05/22/2024 4:00 PM GRAINING PRESS OPERATOR 4 mg documented in this encounter Active and Recently Administered Medications Times are shown in GRAINING PRESS OPERATOR. Scheduled Medication Order 05/20/2024 05/21/2024 05/22/2024 [...] SOFIA) documented in this encounter Care Teams Chemical Production Machine Operator Relationship Specialty Start Date End Date No Ref-Primary, Physician PCP - General 03/15/24 06/17/24 Elvira Ramseyc Medical Student 04/03/24 Case Samuel MD [address] [place] [address], [address] [place] [address] Assigned Pediatric Specialist Provider 05/18/24 documented as of this encounter
--- OUTSIDE RECORDS SUMMARY | 2024-06-25 14:30 | XMS_ITS | Encounter Summary ---
Author Organization [place] [place] Address [address] [place] [address]. [place] [address] Care Team Providers Care Natural Sciences Department Chair Name Role Phone No Ref-Primary, Physician Primary Care Provider Mor Ramsey Unavailable Unavailable Case Samuel MD Unavailable [phone] Encounter Details Date Type Department Care Team [...] on file Legal Sex Female 8:25 AM AMUSEMENT MACHINE MECHANIC Gender Identity Not on file Sexual Orientation Not on file documented as of this encounter Plan of Treatment Not on file documented as of this encounter Goals Goal Patient Goal Type Associated Problems Recent Progress Patient-Stated? Author Pain Management General On track( 025 12:40 PM AMUSEMENT MACHINE MECHANIC) Yes Juhi Benson, RN Note: Goal [...] on filedocumented in this encounter Care Teams Natural Sciences Department Chair Relationship Specialty Start Date End Date No Ref-Primary, Physician PCP - General 03/15/24 06/17/24 Mor Ramsey Medical Student 04/03/24 Case Samuel MD [address] [place] [address], [address] [place] [address] Assigned Pediatric Specialist Provider 05/18/24 documented as of this encounter
--- OUTSIDE RECORDS SUMMARY | 2024-06-25 14:30 | XMS_ITS | Encounter Summary ---
Author Organization [facility] Address [address] [place] [address] Care Team Providers Care Folder Tier Name Role Phone No Ref-Primary, Physician Primary Care Provider Mor Ramsey Unavailable Unavailable Case Samuel MD Unavailable [phone] Reason for Visit * Reason Comments Sickle Cell Pain Crisis Encounter Details Date Type Department Care Team (Late st Contact Info) Description 05/19/2024 2:10 AM TYRE RETREADER - 05/19/2024 6:[address] [facility] Emergency [facility] Emergency Room Formerly [facility], [id number] [place] [address] Marilia Summers MD [address] [place] [address] [id number] Sickle cell disease with crisis (H) Discharge [...] on file Legal Sex Female 8:25 AM TYRE RETREADER Gender Identity Not on file Sexual Orientation Not on file documented as of this encounter Last Filed Vital Signs Vital Sign Reading Time Taken Comments Blood Pressure 110/60 05/19/2024 5:30 AM TYRE RETREADER Pulse 89 05/19/2024 5:30 AM TYRE RETREADER Temperature 36.9 C (98.4 F) 05/19/2024 2:16 AM TYRE RETREADER Respiratory Rate 16 05/19/2024 2:16 AM TYRE RETREADER Oxygen Saturation 95% 05/19/2024 5:30 AM TYRE RETREADER Inhaled Oxygen Concentration - - Weight 51.7 kg (114 lb) 05/19/2024 2:16 AM TYRE RETREADER Height 160 cm (5' 3) 05/19/2024 2:16 AM TYRE RETREADER Body Mass Index 20.19 05/19/2024 2:16 AM TYRE RETREADER documented in this encounter Discharge Instructions * Discharge Instructions* Marilia Summers MD - 05/19/2024 6:02 AM TYRE RETREADER Keep your hematology appointment for the third. Talk with your oncologist about your pain control and what you should do about it while you wait for that appointment. 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 RETREADER * Attachments The following attachments cannot be sent through Care Everywhere. * Sickle Cell Crisis (Grenadian) documented in this encounter Medications at Time [...] sleep. 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 C/o 10 generalized back pain Triage Assessment [...] Docusate, Senna PRN [id number] I reviewed the [facility] database for prescriptions. 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 No conference interpreter was used. Gianna Hernández is a [...] hCG Serum Qualitative Negative Negative Narrative Lot#: [id number] Exp: 2025-09-28 CBC with platelets and differential [...] Status --------- ------ CBC with platelets and d...[[id number]] Abnormal Final result Manual Differential[[id number]] Abnormal Final result Please view results for these tests on the individual orders. [facility] Documentation Medical Decision Making [...] with other provider:Did you involve another provider (talent acquisition consultant, , pharmacy, etc.)?: I discussed the [...] my direction. Marilia Summers MD Emergency Medicine [facility] EMERGENCY ROOM Marilia Summers MD 05/19/24 0607 RETREADER * Moy Stewart RN - 05/19/2024 2:18 AM CST To ED per POV C/o being in sickle cell crisis which awoke her from sleep. 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 C/o 9/10 generalized back pain Triage Assessment (Adult) Row Name 05/19/24 0217 Triage Assessment Airway WDL WDL Respiratory WDL Respiratory WDL WDL Skin Circulation/Temperature WDL Skin Circulation/Temperature WDL WDL Cardiac WDL Cardiac WDL rhythm Pulse Rate & Regularity tachycardic Peripheral/Neurovascular WDL Peripheral Neurovascular WDL WDL Cognitive/Neuro/Behavioral WDL Cognitive/Neuro/Behavioral WDL WDL RETREADER documented in this encounter Plan of Treatment Not on file documented as of this encounter Goals Goal Patient Goal Type Associated Problems Recent Progress Patient-Stated? Author Pain Management General On track( 025 12:40 PM TYRE RETREADER) Yes Juhi Benson, RN Note: Goal Statement: [...] MANUAL DIFFERENTIAL STAT 05/19/2024 3 :05 AM TYRE RETREADER CBC WITH PLATELETS AND DIFFERENTIAL STAT 05/19/2024 3:05 AM TYRE RETREADER CBC WITH PLATELETS & DIFFERENTIAL STAT 05/19/2024 3:05 AM TYRE RETREADER RETICULOCYTE COUNT STAT 05/19/2024 3: 05 AM TYRE RETREADER HEPATIC FUNCTION PANEL STAT 05/19/2024 3:05 AM TYRE RETREADER HCG QUALITATIVE STAT 05/19/2024 3:05 AM TYRE RETREADER CK TOTAL STAT 05/19/2024 3:05 AM TYRE RETREADER BASIC METABOLIC PANEL STAT 05/19/2024 3:05 AM TYRE RETREADER documented in this encounter Results * (ABNORMAL) Manual Differential (05/19/2024 3:[address] [facility]) Pathologist [facility] % Neutrophils 66 % JARET 05/19/2024 4:12 AM [facility] % Lymphocytes 19 % JARET 05/19/2024 4:12 AM [facility] % Monocytes 11 % JARET 05/19/2024 4:12 AM [facility] % Eosinophils 2 % JARET 05/19/2024 4:12 AM [facility] % Basophils 2 % JARET 05/19/2024 4:12 AM [facility] Absolute Neutrophils 9.6(H) 1.6 - 8.3 10e3/uL JARET 05/19/2024 4:12 AM [facility] Absolute Lymphocytes 2.8 0.8 - 5.3 10e3/uL JARET 05/19/2024 4:12 AM [facility] Absolute Monocytes 1.6(H) 0.0 - 1.3 10e3/uL JARET 05/19/2024 4:12 AM [facility] Absolute Eosinophils 0.3 0.0 - 0.7 10e3/uL JARET 05/19/2024 4:12 AM [facility] Absolute Basophils 0.3(H) 0.0 - 0.2 10e3/uL JARET 05/19/2024 4:12 AM [facility] RBC Morphology Confirmed RBC Indices JARET 05/19/2024 4:12 AM [facility] Platelet Assessment Automated Count Confirmed. Platelet morphology is normal. Automated Count Confirmed. Platelet morphology is normal. JARET 05/19/2024 4:12 AM [facility] Elliptocytes Slight(A) None Seen JARET 05/19/2024 4:12 AM [facility] RBC Fragments Rare(A) None Seen JARET 05/19/2024 4:12 AM [facility] Polychromasia Slight(A) None Seen JARET 05/19/2024 4:12 AM [facility] Sickle Cells Slight(A) None Seen JARET 05/19/2024 4:12 AM [facility] Target Cells Slight(A) None Seen JARET 05/19/2024 4:12 AM [facility] Blood VENOUS LINE / Unknown Venipuncture / Unknown 05/19/2024 3:[address] [facility] 05/19/2024 3:18 AM TYRE RETREADER us Marilia Summers MD LAB - BLOOD ORDERABLES Final Result [facility] [address] [place] [address], [facility] * (ABNORMAL) CBC with platelets and differential (05/19/2024 3:05 AM TYRE RETREADER) [facility] WBC Count 14.5(H) 4.0 - 11.0 10e3/uL 05/19/2024 4:12 AM [facility] RBC Count 2.45(L) 3.80 - 5.20 10e6/uL 05/19/2024 4:12 AM [facility] Hemoglobin 7.7(L) 11.7 - 15.7 g/dL 05/19/2024 4:12 AM [facility] Hematocrit 22.7(L) 35.0 - 47.0 % 05/19/2024 4:12 AM [facility] MCV 93 78 - 100 fL 05/19/2024 4:12 AM [facility] MCH 31.4 26.5 - 33.0 pg 05/19/2024 4:12 AM [facility] MCHC 33.9 31.5 - 36.5 g/dL 05/19/2024 4:12 AM [facility] RDW 23.0(H) 10.0 - 15.0 % 05/19/2024 4:12 AM [facility] Platelet Count 518(H) 150 - 450 10e3/uL 05/19/2024 4:12 AM [facility] Blood VENOUS LINE / Unknown Venipuncture / Unknown 05/19/2024 3:05 AM TYRE RETREADER 05/19/2024 3:18 AM TYRE RETREADER us Marilia Summers MD LAB - BLOOD ORDERABLES Final Result [facility] [address] [place] [address], [facility] * HCG QUALitative (blood) (05/19/2024 3:05 AM TYRE RETREADER) [facility] hCG Serum Qualitative Negative Negative JARET 05/19/2024 3:29 AM [facility] Comment:This test is for scr eening purposes. Results should be interpreted along with the clinical picture. Confirmation testing is available if warranted by ordering [id number], HCG Quantitative . Blood VENOUS LINE / Unknown Venipuncture / Unknown 05/19/2024 3:05 AM TYRE RETREADER 05/19/2024 3:18 AM TYRE RETREADER Narrative [facility] - 05/19/2024 3:[address] [facility] Lot#: [id number] Exp: 2025-09-28 Marilia Summers MD LAB - BLOOD ORDERABLES Final Result Performing Organization Address City/[facility]/ZIP Co de Phone Number [facility] [address] [place] [address] [address] * (ABNORMAL) CK total (05/19/2024 3:05 AM TYRE RETREADER) [facility] CK 240(H) 26 - 192 U/L 05/19/2024 3:37 AM [facility] Blood VENOUS LINE / Unknown Venipuncture / Unknown 05/19/2024 3:05 AM TYRE RETREADER 05/19/2024 3:18 AM TYRE RETREADER Marilia Summers MD LAB - BLOOD ORDERABLES Final Result Performing Organization Address City/[facility]/ZIP Co de Phone Number [facility] [address] [place] [address] [address] * (ABNORMAL) Hepatic function panel (05/19/2024 3:05 AM TYRE RETREADER) [facility] Protein Total 7.9 6.4 - 8.3 g/dL 05/19/2024 3:37 AM [facility] Albumin 4.3 3.5 - 5.2 g/dL 05/19/2024 3:37 AM [facility] Bilirubin Total 2.6(H) <=1.2 mg/dL 05/19/2024 3:37 AM [facility] Alkaline Phosphatase 128 40 - 150 U/L 05/19/2024 3:37 AM [facility] AST 67(H) 0 - 45 U/L 05/19/2024 3:37 AM [facility] ALT 39 0 - 50 U/L 05/19/2024 3:37 AM [facility] Bilirubin Direct 0.65(H) 0.00 - 0.30 mg/dL 05/19/2024 3:37 AM [facility] Blood VENOUS LINE / Unknown Venipuncture / Unknown 05/19/2024 3:[address] [facility] 05/19/2024 3:[address] [facility] us Marilia Summers MD LAB - BLOOD ORDERABLES Final Result [facility] [address] [place] [address], [facility] * (ABNORMAL) Basic metabolic panel (05/19/2024 3:[address] [facility]) Sodium 137 135 - 145 mmol/L 05/19/2024 3:37 AM [facility] Potassium 4.2 3.4 - 5.3 mmol/L 05/19/2024 3:37 AM [facility] Chloride 107 98 - 107 mmol/L 05/19/2024 3:37 AM [facility] Carbon Dioxide (CO2) 20(L) 22 - 29 mmol/L 05/19/2024 3:37 AM [facility] Anion Gap 10 7 - 15 mmol/L 05/19/2024 3:37 AM [facility] Urea Nitrogen 11.2 6.0 - 20.0 mg/dL 05/19/2024 3:37 AM [facility] Creatinine 0.81 0.51 - 0.95 mg/dL 05/19/2024 3:37 AM [facility] GFR Estimate >90 >60 mL/min/1.7 3m2 05/19/2024 3:37 AM [facility] Comment:eGFR calculated usin 2020 CKD-EPI equation. Calcium 9.1 8.8 - 10.4 mg/dL 05/19/2024 3:37 AM [facility] Comment:Reference intervals for this test were updated on 11/09/2023 to reflect our healthy population more accurately. There may be differences in the flagging of prior results with similar values performed with this method. Those prior results can be interpreted in the context of the updated reference intervals. Glucose 99 70 - 99 mg/dL 05/19/2024 3:37 AM [facility] Blood VENOUS LINE / Unknown Venipuncture / Unknown 05/19/2024 3:05 AM TYRE RETREADER 05/19/2024 3:18 AM TYRE RETREADER Marilia Summers MD LAB - BLOOD ORDERABLES Final Result Performing Organization Address [facility] de Phone Number [facility] [address] [place] [address] PR[place] Munoz [address], [facility] * (ABNORMAL) Reticulocyte count (05/19/2024 3:05 AM TYRE RETREADER) [facility] % Reticulocyte 23.3(H) 0.5 - 2.0 % 05/19/2024 3:47 AM [facility] Absolute Reticulocyte 0.550(H) 0.025 - 0.095 10e6/uL 05/19/2024 3:47 AM [facility] Blood VENOUS LINE / Unknown Venipuncture / Unknown 05/19/2024 3:05 AM TYRE RETREADER 05/19/2024 3:18 AM TYRE RETREADER Marilia Summers MD LAB - BLOOD ORDERABLES Final Result Performing Organization Address [facility] de Phone Number [facility] [address] [place] [address] PROSPER Munoz [facility], [facility] documented in this encounter [...] For 1 dose $Given 05/19/2024 3:10 AM TYRE RETREADER 25 mg diphenhydrAMINE (BENADRYL) injection 25 mg 25 mg, Intravenous, ONCE, On Wed05/19/24 at 0530, For 1 dose $Given 05/19/2024 5:17 AM TYRE RETREADER 25 mg HYDROmorphone (DILAUDID) injection 2 mg 2 mg, Intravenous, EVERY 1 HOUR PRN, moderate pain, Starting on Wed05/19/24 at 0241, For 3 doses $Given 05/19/2024 5:30 AM TYRE RETREADER 2 mg $Given 05/19/2024 4:19 AM TYRE RETREADER 2 mg $Given 05/19/2024 3:10 AM TYRE RETREADER 2 mg lactated ringers BOLUS 1,000 mL Intravenous, 1,000 mL, ONCE, at 500 mL/hr, Administer over 2 Hours, On Wed05/19/24 at 0300, For 1 dose Rate/Dose Verify 05/19/2024 4:24 AM TYRE RETREADER 500 mL/hr $New Bag 05/19/2024 3:15 AM TYRE RETREADER 1,000 mLs 500 mL/hr ondansetron (ZOFRAN) injection 8 mg 8 mg, Intravenous, ONCE, Administer over 2-5 Minutes, On Wed05/19/24 at 0530, For 1 dose $Given 05/19/2024 5:17 AM TYRE RETREADER 8 mg documented in this encounter Active and Recently Administered Medications Times are shown in TYRE RETREADER. Scheduled Medication Order 05/17/2024 05/18/2024 05/19/2024 diphenhydrAMINE [...] RN) documented in this encounter Care Teams Folder Tier Relationship Specialty Start Date End Date No Ref-Primary, Physician PCP - General 03/15/24 06/17/24 Mor Ramsey Medical Student 04/03/24 Case Samuel MD [address] [place] [address], [address] [place] [address] Assigned Pediatric Specialist Provider 05/18/24 documented as of this encounter
--- OUTSIDE RECORDS SUMMARY | 2024-06-25 14:30 | XMS_ITS | Encounter Summary ---
Author Organization [facility] Address [address] [place] [id number] Care Team Providers Care Casting Supervisor Name Role Phone No Ref-Primary, Physician Primary Care Provider Mor Ramsey Unavailable Unavailable Case Samuel MD Unavailable [phone] Reason for Visit * Reason Comments Sickle Cell Pain Crisis Chest Pain Encounter Details Date Type Department Care Team (Late st Contact Info) Description 05/20/2024 7:30 AM ACCOUNT SPECIALIST - 05/20/2024 11:15 AM [facility] Emergency [facility] Emergency Room [address] [place] [address] Stiven Madsen MD [facility] [address], [place] [address] Sickle cell pain crisis (H) Discharge Disposition: [...] on file Legal Sex Female 8:25 AM ACCOUNT SPECIALIST Gender Identity Not on file Sexual Orientation Not on file documented as of this encounter Last Filed Vital Signs Vital Sign Reading Time Taken Comments Blood Pressure 115/59 05/20/2024 11:00 AM ACCOUNT SPECIALIST Pulse 76 05/20/2024 11:00 AM ACCOUNT SPECIALIST Temperature 37.3 C (99.2 F) 05/20/2024 7:33 AM ACCOUNT SPECIALIST Respiratory Rate 20 05/20/2024 11:00 AM ACCOUNT SPECIALIST Oxygen Saturation 100% 05/20/2024 11:00 AM ACCOUNT SPECIALIST Inhaled Oxygen Concentration - - Weight 50.8 kg (112 lb) 05/20/2024 7:33 AM ACCOUNT SPECIALIST Height 154.9 cm (5' 1) 05/20/2024 7:33 AM ACCOUNT SPECIALIST Body Mass Index 21.16 05/20/2024 7:33 AM ACCOUNT SPECIALIST documented in this encounter Discharge Instructions * Discharge Instructions* Stiven Madsen MD - 05/20/2024 11:08 AM ACCOUNT SPECIALIST Please 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 Try to make sure that you are drinking plenty of liquids to keep yourself hydrated. Continue to take your usual pain medications. If you have other concerns specifically productive cough, severe chest pain, shortness of breath, or other immediate concern we should reevaluate in the emergency department. UNT SPECIALIST documented in this encounter Medications at [...] in 10 minutes. Message sent to provider. UNT SPECIALIST * Suzanne Cadet RN - 05/20/2024 10:00 AM CST Pt requesting additional medication for pain. Also requesting medication for itching. Message sent to provider. Medicated per provider order. UNT SPECIALIST * Yanna Huerta RN - 05/20/2024 8:43 AM CST IV infiltrated and removed, LES RN coming to try for IV UNT SPECIALIST * Yanna Huerta RN - 05/20/2024 8:10 AM CST Introduced self to patient. Whiteboard updated. Plan of care and length of time discussed with patient. Will continue to monitor. Yanna Huerta RN.......05/20/2024 8:37 AM UNT SPECIALIST * Stiven Madsen MD - 05/20/2024 7:31 [...] cell disease. Radial instantly establishing care in [place] and with several ED visits across the [...] with other provider:Did you involve another provider (documentation consultant, MH, pharmacy, etc.)?: No Discharge. 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 Recently moved to [place] from [place], [place]. She is 1 of 9 [...] Social Connections: Socially Integrated (03/28/2024) Received from [facility] Social Connections Do you often feel [...] wave abnormality. Rate: 86 Rhythm: Sinus rhythm [place]: 18 55 25 SD Interval: 154 QRS Interval: 78 QTc Interval: [...] documented them in accordance with my direction. Stievn Madsen M.D. Emergency Medicine [facility] EMERGENCY ROOM [address] [place] [id number] Dept: [phone] Stiven Madsen MD 05/20/24 135 UNT SPECIALIST * Stefani Huizar RN - 05/20/2024 7:27 AM CST Pt c/o pain all over body, hx sickle cell and feels like flare up started 2 days ago. Pt also c/o left sided chest pain, pain with taking a deep breath. Pt was seen here yesterday as well for same states did not have chest pain then UNT SPECIALIST UNT SPECIALIST documented in this encounter Plan of Treatment Not on file documented as of this encounter Goals Goal Patient Goal Type Associated Problems Recent Progress Patient-Stated? Author Pain Management General On track( 025 12:40 PM ACCOUNT SPECIALIST) Yes Juhi Benson, RN Note: Goal [...] CHEST 2 VIEWS STAT 05/20/2024 9:30 AM ACCOUNT SPECIALIST EXTRA TUBE STAT 05/20/2024 9:09 AM ACCOUNT SPECIALIST EXTRA GREEN TOP (LITHIUM HEPARIN) TUBE STAT 05/20/2024 9:09 AM ACCOUNT SPECIALIST RBC AND PLATELET MORPHOLOGY STAT 05/20/2024 9:09 AM ACCOUNT SPECIALIST CBC WITH PLATELETS AND DIFFERENTIAL STAT 05/20/2024 9:09 AM ACCOUNT SPECIALIST CBC WITH PLATELETS & DIFFERENTIAL STAT 05/20/2024 9:09 AM ACCOUNT SPECIALIST RETICULOCYTE COUNT STAT 05/20/2024 9: 09 AM ACCOUNT SPECIALIST BASIC METABOLIC PANEL STAT 05/20/2024 9:09 AM ACCOUNT SPECIALIST BASIC METABOLIC PANEL STAT 05/20/2024 8:21 AM ACCOUNT SPECIALIST ECG 12-LEAD WITH MUSE [facility] STAT 05/20/2024 7:36 AM ACCOUNT SPECIALIST documented in this encounter Results * Chest XR, PA & LAT (05/20/2024 9:30 AM ACCOUNT SPECIALIST) Anatomical Region Laterality Modality Chest Digital Radiogra phy 05/20/2024 9:30 AM ACCOUNT SPECIALIST Impressions 05/20/2024 9:38 AM ACCOUNT SPECIALIST IMPRESSION: Slightly increased bilateral mid to lower lung patchy opacities which may reflect atelectatic changes or pneumonic infiltrates. No pleural effusion. Normal heart size. Multiple H-shaped thoracic vertebra consistent with the history of sickle cell disease. Narrative 05/20/2024 9:38 AM ACCOUNT SPECIALIST EXAM: XR CHEST 2 VIEWS LOCATION: [facility] DATE: 05/20/2024 INDICATION: Chest pain, sickle cell patient COMPARISON: Chest x-ray 05/08/2024 Procedure Note Twin Marin MD - 05/20/2024 EXAM: XR CHEST 2 VIEWS LOCATION: [facility] DATE: 05/20/2024 INDICATION: Chest pain, sickle cell [...] RBC and Platelet Morphology (05/20/2024 9:09 AM ACCOUNT SPECIALIST) Pathologist [facility] RBC Morphology Confirmed RBC Indices 05/20/2024 9:47 AM ACCOUNT SPECIALIST [facility] Platelet Assessment Automated Count Confirmed. Platelet morphology is normal. Automated Count Confirmed. Platelet morphology is normal. JARET 05/20/2024 9:47 AM ACCOUNT SPECIALIST [facility] Polychromasia Slight(A) None Seen JARET 05/20/2024 9:47 AM [facility] Reactive Lymphocytes Present(A) None Seen JARET 05/20/2024 9:47 AM [facility] Sickle Cells Moderate(A) None Seen JARET 05/20/2024 9:47 AM [facility] Target Cells Slight(A) None Seen JARET 05/20/2024 9:47 AM [facility] Blood VENOUS LINE / Unknown Venipuncture / Unknown 05/20/2024 9:09 AM ACCOUNT SPECIALIST 05/20/2024 9:14 AM [facility] us Stiven Madsen MD LAB - BLOOD ORDERABLES Final Result [facility] [address] [address], [facility] * (ABNORMAL) Basic metabolic panel (05/20/2024 9:09 AM [facility]) Sodium 137 135 - 145 mmol/L 05/20/2024 9:42 AM [facility] Potassium 4.8 3.4 - 5.3 mmol/L 05/20/2024 9:42 AM [facility] Chloride 105 98 - 107 mmol/L 05/20/2024 9:42 AM [facility] Carbon Dioxide (CO2) 22 22 - 29 mmol/L 05/20/2024 9:42 AM [facility] Anion Gap 10 7 - 15 mmol/L 05/20/2024 9:42 AM [facility] Urea Nitrogen 7.4 6.0 - 20.0 mg/dL 05/20/2024 9:42 AM [facility] Creatinine 0.82 0.51 - 0.95 mg/dL 05/20/2024 9:42 AM [facility] GFR Estimate >90 >60 mL/min/1.7 3m2 05/20/2024 9:42 AM [facility] Comment:eGFR calculated usin 2020 CKD-EPI equation. Calcium 9.3 8.8 - 10.4 mg/dL 05/20/2024 9:42 AM [facility] Comment:Reference intervals for this test were updated on 11/09/2023 to reflect our healthy population more accurately. There may be differences in the flagging of prior results with similar values performed with this method. Those prior results can be interpreted in the context of the updated reference intervals. Glucose 107(H) 70 - 99 mg/dL 05/20/2024 9:42 AM [facility] Blood VENOUS LINE / Unknown Venipuncture / Unknown 05/20/2024 9:09 AM ACCOUNT SPECIALIST 05/20/2024 9:14 AM ACCOUNT SPECIALIST Stiven Madsen MD LAB - BLOOD ORDERABLES Final Result Performing Organization Address City/[facility]/ZIP Co de Phone Number [facility] [address] [place] [address] [place] [address], [facility] * Extra Green Top (Searchlight Heparin) Tube (05/20/2024 9:09 AM ACCOUNT SPECIALIST) Pathologist [facility] Hold Specimen JI 05/20/2024 10:16 AM [facility] Blood VENOUS LINE / Unknown Venipuncture / Unknown 05/20/2024 9:09 AM ACCOUNT SPECIALIST 05/20/2024 9:14 AM ACCOUNT SPECIALIST Deshawn Arredondo MD LAB - BLOOD ORDERABLES Liss l Result Performing Organization Address [facility] Co de Phone Number [facility] [address] [place] [address] * (ABNORMAL) CBC with platelets and differential (05/20/2024 9:09 AM ACCOUNT SPECIALIST) WBC Count 16.0(H) 4.0 - 11.0 10e3/uL 05/20/2024 9:47 AM [facility] RBC Count 2.57(L) 3.80 - 5.20 10e6/uL 05/20/2024 9:47 AM [facility] Hemoglobin 8.4(L) 11.7 - 15.7 g/dL 05/20/2024 9:47 AM [facility] Hematocrit 23.7(L) 35.0 - 47.0 % 05/20/2024 9:47 AM [facility] MCV 92 78 - 100 fL 05/20/2024 9:47 AM [facility] MCH 32.7 26.5 - 33.0 pg 05/20/2024 9:47 AM [facility] MCHC 35.4 31.5 - 36.5 g/dL 05/20/2024 9:47 AM [facility] RDW 22.8(H) 10.0 - 15.0 % 05/20/2024 9:47 AM [facility] Platelet Count 541(H) 150 - 450 10e3/uL 05/20/2024 9:47 AM [facility] % Neutrophils 59 % 05/20/2024 9:47 AM [facility] % Lymphocytes 23 % 05/20/2024 9:47 AM [facility] % Monocytes 15 % 05/20/2024 9:47 AM [facility] % Eosinophils 2 % 05/20/2024 9:47 AM [facility] % Basophils 1 % 05/20/2024 9:47 AM [facility] % Immature Granulocytes 1 % 05/20/2024 9:47 AM [facility] NRBCs per 100 WBC 2(H) <1 /100 025 9:47 AM [facility] Absolute Neutrophils 9.4(H) 1.6 - 8.3 10e3/uL 05/20/2024 9:47 AM [facility] Absolute Lymphocytes 3.6 0.8 - 5.3 10e3/uL 05/20/2024 9:47 AM [facility] Absolute Monocytes 2.4(H) 0.0 - 1.3 10e3/uL 05/20/2024 9:47 AM [facility] Absolute Eosinophils 0.3 0.0 - 0.7 10e3/uL 05/20/2024 9:47 AM [facility] Absolute Basophils 0.2 0.0 - 0.2 10e3/uL 05/20/2024 9:47 AM [facility] Absolute Immature Granulocytes 0.2 <=0.4 10e3/uL 05/20/2024 9:47 AM [facility] Absolute NRBCs 0.2 10e3/uL 05/20/2024 9:47 AM [facility] Blood VENOUS LINE / Unknown Venipuncture / Unknown 05/20/2024 9:09 AM [facility] 05/20/2024 9:14 AM ACCOUNT SPECIALIST Stiven Madsen MD LAB - BLOOD ORDERABLES Final Result Performing Organization Address [facility] de Phone Number [facility] [address] [place] [address] * (ABNORMAL) Reticulocyte count (05/20/2024 9:09 AM ACCOUNT SPECIALIST) % Reticulocyte 25.1(H) 0.5 - 2.0 % 05/20/2024 9:19 AM [facility] Absolute Reticulocyte 0.646(H) 0.025 - 0.095 10e6/uL 05/20/2024 9:19 AM [facility] Blood VENOUS LINE / Unknown Venipuncture / Unknown 05/20/2024 9:09 AM ACCOUNT SPECIALIST 05/20/2024 9:14 AM ACCOUNT SPECIALIST Stiven Madsen MD LAB - BLOOD ORDERABLES Final Result Performing Organization Address [facility] de Phone Number [address] [place] [address], [facility] * (ABNORMAL) Basic metabolic panel (05/20/2024 8:21 AM [facility]) Pathologist [facility] Sodium 136 135 - 145 mmol/L 05/20/2024 8:47 AM [facility] Potassium 5.1 3.4 - 5.3 mmol/L 05/20/2024 8:47 AM [facility] Chloride 105 98 - 107 mmol/L 05/20/2024 8:47 AM [facility] Carbon Dioxide (CO2) 21(L) 22 - 29 mmol/L 05/20/2024 8:47 AM [facility] Anion Gap 10 7 - 15 mmol/L 05/20/2024 8:47 AM [facility] Urea Nitrogen 7.5 6.0 - 20.0 mg/dL 05/20/2024 8:47 AM [facility] Creatinine 0.84 0.51 - 0.95 mg/dL 05/20/2024 8:47 AM [facility] GFR Estimate >90 >60 mL/min/1.7 3m2 05/20/2024 8:47 AM [facility] Comment:eGFR calculated us2020 CKD-EPI equation. Calcium 9.1 8.8 - 10.4 mg/dL 05/20/2024 8:47 AM [facility] Comment:Reference intervals for this test were updated on 11/09/2023 to reflect our healthy population more accurately. There may be differences in the flagging of prior results with similar values performed with this method. Those prior results can be interpreted in the context of the updated reference intervals. Glucose 95 70 - 99 mg/dL 05/20/2024 8:47 AM ACCOUNT SPECIALIST [facility] Blood VENOUS LINE / Unknown Venipuncture / Unknown 05/20/2024 8:21 AM ACCOUNT SPECIALIST 05/20/2024 8:31 AM ACCOUNT SPECIALIST us Stiven Madsen MD LAB - BLOOD ORDERABLES Final Result Performing Organization Address [facility]/ZIP Co de Phone Number [facility] [address] [place] [address], [facility] * ECG 12-LEAD WITH MUSE (LHE) (05/20/2024 7:36 AM ACCOUNT SPECIALIST) Systolic Blood Pressure 111 mmHg RADIOLOGY RESULTS Diastolic Blood Pressure 56 mmHg RADIOLOGY RESULTS Ventricular Rate 86 BPM RAD IOLOGY RESULTS Atrial Rate 86 BPM RADIOLOG Y RESULTS SD Interval 154 ms RADIOLOG Y RESULTS QRS Duration 78 ms RADIOLO GY RESULTS QT 370 ms RADIOLOGY RESULTS QTc 442 ms RADIOLOGY RESULTS P [place] 18 degrees RADIOLOGY RESULTS R AXIS 55 degrees RADIOLOGY RESULTS T [place] 25 degrees RADIOLOGY RESULTS Interpretation ECG Sinus rhythm Nonspecific T wave abnormality Abnormal ECG When compared with ECG of 14-May-2024 22:12, Nonspecific T wave abnormality now evident in Inferior leads Confirmed by SEE ED PROVIDER NOTE FOR, ECG INTERPRETATION (4000), editor continuity and script Neeraj Allison ([id number]) on 05/20/2024 7:48:17 AM RADIOLOGY RESULTS 05/20/2024 7:36 AM ACCOUNT SPECIALIST 05/20/2024 7:48 AM ACCOUNT SPECIALIST us Deshawn Arredondo MD ECG ORDERABLES Edited [...] For 1 dose $Given 05/20/2024 9:59 AM ACCOUNT SPECIALIST 25 mg HYDROmorphone (DILAUDID) injection 2 mg 2 mg, Intravenous, EVERY HOUR, First dose on 05/20/24 at 0800, For 3 doses $Given 05/20/2024 10:58 AM ACCOUNT SPECIALIST 2 mg $Given 05/20/2024 9:56 AM ACCOUNT SPECIALIST 2 mg $Given 05/20/2024 8:22 AM ACCOUNT SPECIALIST 2 mg lactated ringers infusion at 500 mL/hr, Intravenous, CONTINUOUS, Starting on 05/20/24 at 0800, Until 05/20/24 at 0959 Restarted 05/20/2024 9:30 AM ACCOUNT SPECIALIST 500 mL/hr $New Bag 05/20/2024 8:22 AM ACCOUNT SPECIALIST 500 mL/hr ondansetron (ZOFRAN) injection 8 mg 8 mg, Intravenous, EVERY 6 HOURS PRN, nausea, vomiting, Administer over 2-5 Minutes, Starting on 05/20/24 at 0744 $Given 05/20/2024 8:22 AM ACCOUNT SPECIALIST 8 mg documented in this encounter Active and Recently Administered Medications Times are shown in ACCOUNT SPECIALIST. Scheduled Medication Order 05/18/2024 05/19/2024 05/20/2024 diphenhydrAMINE [...] RN) documented in this encounter Care Teams Casting Supervisor Relationship Specialty Start Date End Date No Ref-Primary, Physician PCP - General 03/15/24 06/17/24 Mor Ramsey Medical Student 04/03/24 Case Samuel MD [address] [place] [address], [address] [place] [address] Assigned Pediatric Specialist Provider 05/18/24 documented as of this encounter
--- OUTSIDE RECORDS SUMMARY | 2024-06-25 14:30 | XMS_ITS | Encounter Summary ---
Author Organization [place] Address [address] [place] [id number] Care Team Providers Care School Clerk Name Role Phone No Ref-Primary, Physician Primary Care Provider Mor Ramsey Unavailable Unavailable Reason for Visit * Reason Comments Sickle Cell Pain Crisis Encounter Details Date Type Department Care Team ([facility] st Contact Info) Description 05/16/2024 9:41 PM SWIFT TENDER - 05/17/2024 12:53 AM [facility] Emergency [facility] [place] [address] Guille Davis, DO [address] [place] [id number] Sickle cell pain crisis (H) Discharge [...] on file Legal Sex Female 8:25 AM SWIFT TENDER Gender Identity Not on file Sexual Orientation Not on file documented as of this encounter Last Filed Vital Signs Vital Sign Reading Time Taken Comments Blood Pressure 107/62 05/17/2024 12:00 AM SWIFT TENDER Pulse 93 05/17/2024 12:00 AM SWIFT TENDER Temperature 36.8 C (98.3 F) 05/16/2024 9:35 PM SWIFT TENDER Respiratory Rate 15 05/17/2024 12:00 AM SWIFT TENDER Oxygen Saturation 94% 05/17/2024 12:00 AM SWIFT TENDER Inhaled Oxygen Concentration - - Weight 52.2 kg (115 lb) 05/16/2024 9:35 PM SWIFT TENDER Height 154.9 cm (5' 1) 05/16/2024 9:35 PM SWIFT TENDER Body Mass Index 21.73 05/16/2024 9:35 PM SWIFT TENDER documented in this encounter Discharge Instructions * Attachments The following attachments cannot be sent through Care Everywhere. * Sickle Cell Crisis (Guamanian) documented in this encounter Medications at Time [...] being printed. States she doesn't need them. T TENDER * Obie Schofield RN - 05/17/2024 12:16 AM CST Pt says she'll be good for discharge after this 3rd dose of Dilaudid. Provider notified. Pt is vitally stable and pain under control and ok with the plan of care. All questions were answered. T TENDER * Obie Schofield RN - 05/16/2024 11:40 PM CST Pt received 2nd dose of Dilaudid. Pt says the 1st dose has helped with her pain, bringing it down to 7/10 from 9/10. She has relief from itchiness following Benadryl as well. Pt is resting in bed, onher phone, and denies other needs at this time. On continuous pulse ox. T TENDER * Guille Davis DO - 05/16/2024 9:53 [...] with other provider:Did you involve another provider (warehouse consultant, , pharmacy, etc.)?: No Discharge. No [...] Currently Drug use: Never Social History Narrative [id number]-[id number] mom. Recently moved to [place] from [place], [place]. She is 1 of [...] Social Connections: Socially Integrated (03/28/2024) Received from [facility] Social Connections Do you often feel [...] the Xpert Xpress CoV2/Flu/RSV Assay on the [employer] GeneXpert Instrument. This test should be ordered [...] validated by the [facility] [employer]. These laboratories are certified under the Clinical Laboratory Improvement Amendments of 1988 (CLIA-88) as qualified to perfom high complexity laboratory testing. CBC with platelets + differential Narrative The following orders were created for panel order CBC with platelets + differential. Procedure Abnormality Status --------- ------ CBC with platelets and d...[[id number]] Abnormal Final result RBC and Platelet Morphology[[id number]] Abnormal Final result Please view results for [...] on file Guille Davis D.O. Emergency Medicine [facility] EMERGENCY RO[facility] [facility] [address] Dept: [phone] Guille Davis DO 05/17/24 0048 T TENDER * Aminata Farley RN - 05/16/2024 9:37 [...] WDL WDL Cognitive/Neuro/Behavioral WDL Cognitive/Neuro/Behavioral WDL WDL [place] Coma Scale Best Eye Response 4-->(E4) spontaneous Best Motor Response 6-->(M6) obeys commands Best Verbal Response 5-->(V5) oriented Lester Coma Scale Score 15 T TENDER documented in this encounter Plan of Treatment Not on file documented as of this encounter Goals Goal Patient Goal Type Associated Problems Recent Progress Patient-Stated? Author Pain Management General On track( 025 12:40 PM SWIFT TENDER) Yes Juhi Benson, RN Note: Goal [...] AND PLATELET MORPHOLOGY STAT 05/16/2024 10:17 PM SWIFT TENDER CBC WITH PLATELETS AND DIFFERENTIAL STAT 05/16/2024 10:17 PM SWIFT TENDER CBC WITH PLATELETS & DIFFERENTIAL STAT 05/16/2024 10:17 PM SWIFT TENDER BASIC METABOLIC PANEL STAT 05/16/2024 10:17 PM SWIFT TENDER INFLUENZA A/B, RSV AND SARS-COV2 PCR STAT 05/16/2024 10:00 PM SWIFT TENDER documented in this encounter Results * (ABNORMAL) RBC and Platelet Morphology (05/16/2024 10:17 PM SWIFT TENDER) Pathologist [facility] RBC Morphology Confirmed RBC Indices 05/16/2024 10:54 PM SWIFT TENDER [facility] Platelet Assessment Automated Count Confirmed. Platelet morphology is normal. Automated Count Confirmed. Platelet morphology is normal. JARET 05/16/2024 10:54 PM SWIFT TENDER [facility] Polychromasia Slight(A) None Seen JARET 05/16/2024 10:54 PM SWIFT TENDER [facility] Reactive Lymphocytes Present(A) None Seen JARET 05/16/2024 10:54 PM [facility] Sickle Cells Moderate(A) None Seen JARET 05/16/2024 10:54 PM SWIFT TENDER [facility] Target Cells Slight(A) None Seen JARET 05/16/2024 10:54 PM [facility] Blood BLOOD SPECIMEN / Unknown Venipuncture / Unknown 05/16/2024 10:17 PM SWIFT TENDER 05/16/2024 10:24 PM SWIFT TENDER Guille Davis DO LAB - BLOOD ORDERABLES Fin al Result [facility] [address] [facility] [place] [address], [facility] * (ABNORMAL) CBC with platelets and differential (05/16/2024 10:17 PM SWIFT TENDER) WBC Count 14.0(H) 4.0 - 11.0 10e3/uL 05/16/2024 10:50 PM [facility] RBC Count 2.40(L) 3.80 - 5.20 10e6/uL 05/16/2024 10:50 PM [facility] Hemoglobin 7.7(L) 11.7 - 15.7 g/dL 05/16/2024 10:50 PM [facility] Hematocrit 21.8(L) 35.0 - 47.0 % 05/16/2024 10:50 PM [facility] MCV 91 78 - 100 fL 05/16/2024 10:50 PM [facility] MCH 32.1 26.5 - 33.0 pg 05/16/2024 10:50 PM [facility] MCHC 35.3 31.5 - 36.5 g/dL 05/16/2024 10:50 PM [facility] RDW 22.4(H) 10.0 - 15.0 % 05/16/2024 10:50 PM [facility] Platelet Count 521(H) 150 - 450 10e3/uL 05/16/2024 10:50 PM [facility] % Neutrophils 55 % 05/16/2024 10:50 PM [facility] % Lymphocytes 25 % 05/16/2024 10:50 PM [facility] % Monocytes 16 % 05/16/2024 10:50 PM [facility] % Eosinophils 1 % 05/16/2024 10:50 PM [facility] % Basophils 1 % 05/16/2024 10:50 PM [facility] % Immature Granulocytes 1 % 05/16/2024 10:50 PM [facility] NRBCs per 100 WBC 2(H) <1 /100 025 10:50 PM [facility] Absolute Neutrophils 7.7 1.6 - 8.3 10e3/uL 05/16/2024 10:50 PM [facility] Absolute Lymphocytes 3.6 0.8 - 5.3 10e3/uL 05/16/2024 10:50 PM [facility] Absolute Monocytes 2.3(H) 0.0 - 1.3 10e3/uL 05/16/2024 10:50 PM [facility] Absolute Eosinophils 0.2 0.0 - 0.7 10e3/uL 05/16/2024 10:50 PM [facility] Absolute Basophils 0.1 0.0 - 0.2 10e3/uL 05/16/2024 10:50 PM [facility] Absolute Immature Granulocytes 0.1 <=0.4 10e3/uL 05/16/2024 10:50 PM [facility] Absolute NRBCs 0.3 10e3/uL 05/16/2024 10:50 PM [facility] Blood BLOOD SPECIMEN / Unknown Venipuncture / Unknown 05/16/2024 10:17 PM SWIFT TENDER 05/16/2024 10:24 PM SWIFT TENDER us Guille Davis DO LAB - BLOOD ORDERABLES Fin al Result [facility] [address] [place] [address], [place] * (ABNORMAL) Basic metabolic panel (05/16/2024 10:17 PM SWIFT TENDER) [facility] Sodium 138 135 - 145 mmol/L 05/16/2024 10:42 PM [facility] Potassium 4.3 3.4 - 5.3 mmol/L 05/16/2024 10:42 PM [facility] Chloride 105 98 - 107 mmol/L 05/16/2024 10:42 PM [facility] Carbon Dioxide (CO2) 22 22 - 29 mmol/L 05/16/2024 10:42 PM [facility] Anion Gap 11 7 - 15 mmol/L 05/16/2024 10:42 PM [facility] Urea Nitrogen 12.0 6.0 - 20.0 mg/dL 05/16/2024 10:42 PM [facility] Creatinine 0.80 0.51 - 0.95 mg/dL 05/16/2024 10:42 PM [facility] GFR Estimate >90 >60 mL/min/1.7 3m2 05/16/2024 10:42 PM [facility] Comment:eGFR calculated usin 2020 CKD-EPI equation. Calcium 8.7(L) 8.8 - 10.4 mg/dL 05/16/2024 10:42 PM [facility] Comment:Reference intervals for this test were updated on 11/09/2023 to reflect our healthy population more accurately. There may be differences in the flagging of prior results with similar values performed with this method. Those prior results can be interpreted in the context of the updated reference intervals. Glucose 118(H) 70 - 99 mg/dL 05/16/2024 10:42 PM [facility] Blood BLOOD SPECIMEN / Unknown Venipuncture / Unknown 05/16/2024 10:17 PM SWIFT TENDER 05/16/2024 10:24 PM [facility] us Guille Davis DO LAB - BLOOD ORDERABLES Fin al Result [facility] [address] [place] [address], [facility] * Influenza A/B, RSV and SARS-CoV2 PCR (COVID-19) Nasopharyngeal (05/16/2024 10:00 PM SWIFT TENDER) Influenza A PCR Negative Negative 05/16/2024 10:46 PM [facility] Influenza B PCR Negative Negative 05/16/2024 10:46 PM SWIFT TENDER [facility] RSV PCR Negative Negative 05/16/2024 10:46 PM SWIFT TENDER [facility] SARS CoV2 PCR Negative Negative 05/16/2024 10:46 PM SWIFT TENDER [facility] Comment:NEGATIVE: SARS-CoV-2 (COVID-19) RNA not detected, presumed negative. Swab NASOPHARYNGEAL STRUCTURE / Unknown Non-blood Collection / Unknown 05/16/2024 10:00 PM SWIFT TENDER 05/16/2024 10:02 PM SWIFT TENDER [facility] - 05/16/2024 10:46 PM SWIFT TENDER Testing was performed using the Xpert Xpress CoV2/Flu/RSV Assay on the [employer]pert Instrument. This test should be ordered for [...] validated by the [facility] [employer]. These laboratories are certified under the Clinical Laboratory Improvement Amendments of 1988 (CLIA-88) as qualified to perfom high complexity laboratory testing. Guille Davis DO LAB - MICRO GENERAL ORDERA BLES Final Result [facility] [address] [place] [address], [facility] documented in this [...] For 1 dose $Given 05/16/2024 10:37 PM SWIFT TENDER 50 mg HYDROmorphone (DILAUDID) injection 1 mg 1 mg, Intravenous, ONCE, On Wed05/16/24 at 2200, For 1 dose $Given 05/16/2024 10:37 PM SWIFT TENDER 1 mg HYDROmorphone (DILAUDID) injection 1 mg 1 mg, Intravenous, ONCE, On Wed05/17/24 at 0000, For 1 dose $Given 05/16/2024 11:37 PM SWIFT TENDER 1 mg HYDROmorphone (DILAUDID) injection 1 mg 1 mg, Intravenous, ONCE, On Wed05/17/24 at 0030, For 1 dose $Given 05/17/2024 12:13 AM SWIFT TENDER 1 mg documented in this encounter Active and Recently Administered Medications Times are shown in SWIFT TENDER. Scheduled Medication Order 05/15/2024 05/16/2024 05/17/2024 diphenhydrAMINE [...] For 1 dose 2337 ($Given - Provider: bOie Schofield RN) HYDROmorphone (DILAUDID) injection 1 mg (COMPLETED) 1 mg, Intravenous, ONCE, On Wed05/17/24 at 0030, For 1 dose 0013 ($Given - Provi nas: Obie Schofield RN) documented in this encounter Additional Health Concerns Infection Onset Date Last Indicated Resolved Time Rule Out COVID-19 05/16/2024 05/16/2024 05/16/2024 10:46 PM SWIFT TENDER documented as of this encounter Care Teams School Clerk Relationship Specialty Start Date End Date No Ref-Primary, Physician PCP - General 03/15/24 06/17/24 Mor Ramsey Medical Student 04/03/24 documented as of this encounter
--- OUTSIDE RECORDS SUMMARY | 2024-06-25 14:30 | XMS_ITS | Encounter Summary ---
Author Organization [place] Address [address] [place] [id number] Care Team Providers Care Label Remover Name Role Phone No Ref-Primary, Physician Primary Care Provider Mor Ramsey Unavailable Unavailable Reason for Visit * Reason Comments Sickle Cell Pain Crisis Encounter Details Date Type Department Care Team ([facility] st Contact Info) Description 05/13/2024 3:56 PM DRESSING ROOM P[facility] - 05/13/2024 7:56 PM DRESSING ROOM P[facility]TER Emergency [facility] Emergency Room [facility] [place] [address] Shaheen Unger MD [address] [place] [id number] Sickle cell pain crisis (H) Discharge Disposition: [...] on file Legal Sex Female 8:25 AM DRESSING ROOM P[facility]TER Gender Identity Not on file Sexual Orientation Not on file documented as of this encounter Last Filed Vital Signs Vital Sign Reading Time Taken Comments Blood Pressure 102/66 05/13/2024 7:45 PM DRESSING ROOM [facility] Pulse 83 05/13/2024 7:45 PM DRESSING ROOM [facility] Temperature 36.9 C (98.4 F) 05/13/2024 7:45 PM DRESSING ROOM [facility]TER Respiratory Rate 29 05/13/2024 7:45 PM DRESSING ROOM [facility]TER Oxygen Saturation 97% 05/13/2024 7:29 PM DRESSING ROOM [facility]TER Inhaled Oxygen Concentration - - Weight 53.3 kg (117 lb 6.4 oz) 05/13/2024 3:33 P M DRESSING ROOM [facility]TER Height 154.9 cm (5' 1) 05/13/2024 3:33 PM DRESSING ROOM [facility]TER Body Mass Index 22.18 05/13/2024 3:33 PM DRESSING ROOM [facility] documented in this encounter Discharge Instructions * Discharge Instructions* Shaheen Unger MD - 05/13/2024 7:45 PM DRESSING ROOM P[facility]TER Your workup in the emergency department today was reassuring. I would continue with your prescription medications and contact your process camera operator determine if they would like to follow-up with you closely in clinic otherwise if you develop fevers, significantly worsening chest pain, new shortness of breath or other concerning symptom please return to the emergency department for repeat evaluation. SING ROOM P[facility]TER * Attachments The following attachments cannot be sent through Care Everywhere. * Sickle Cell Crisis ([place] Islander) documented in this encounter Medications at Time [...] with other provider:Did you involve another provider (application packaging consultant, , pharmacy, etc.)?: No Discharge. No [...] was obtained from: the patient Use of Die Polisher: N/A Gianna Hernández is a 29 year [...] was on 05/08/2024 (5 days ago) at [facility] ED. Prescriptions for Augmentin and doxycycline sent to her listed [facility] pharmacy. 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 Recently moved to [place] from [place], [place]. She is 1 of 9 [...] Social Connections: Socially Integrated (03/28/2024) Received from [facility] Social Connections Do you often feel [...] Rate 102 BPM Atrial Rate 102 BPM CO Interval 144 ms QRS Duration 84 ms QT 322 ms QTc 419 ms P [place] 32 degrees R AXIS 59 degrees T [place] 37 degrees Interpretation ECG Sinus tachycardia Nonspecific T wave abnormality Abnormal ECG When compared with ECG of 08-May-2024 15:13, No significant change was found Confirmed by SEE ED PROVIDER NOTE FOR, ECG INTERPRETATION (4000), business editor Leticia Warner ([id number]) on 05/13/2024 4:13:45 PM RADIOLOGY: Reviewed all pertinent imaging. Please see official radiology report. No orders to display EKG: Performed at: Impression: EKG shows sinus tachycardia 102 beats a minute, normal axis, normal CO, QRS and QTc durations, no ST elevations, T wave inversions in V1 through V3 seen on prior EKGs, I have independently reviewed and interpreted the EKG(s) documented above. [facility] Documentation: [facility] Diagnoses: I, Abraham Ashby, am serving as a scribe to document services personally performed by Shaheen Unger MDbased on my observation and the provider's statements to me. I, Shaheen Unger MD, attest that Regla is acting in a scribe capacity, has observed my performance of the services and has documentedthem in accordance with my direction. Shaheen Unger MD [facility] EMERGENCY ROOM [address] [facility] [id number] Shaheen Unger MD 05/13/24 [id number] SING ROOM [facility]TER * Jennifer Scherer RN - 05/13/2024 3:36 [...] ECG obtained Cognitive/Neuro/Behavioral WDL Cognitive/Neuro/Behavioral WDL WDL SING ROOM [facility] documented in this encounter Plan of Treatment Not on file documented as of this encounter Goals Goal Patient Goal Type Associated Problems Recent Progress Patient-Stated? Author Pain Management General On track( 025 12:40 PM DRESSING ROOM PORTER) Yes Juhi Benson, RN Note: Goal Statement: [...] Comments EXTRA TUBE STAT 05/13/2024 6:17 PM DRESSING ROOM P[facility]TER EXTRA PURPLE TOP TUBE STAT 05/13/2024 6:17 PM DRESSING ROOM P[facility]TER LACTATE DEHYDROGENASE STAT 05/13/2024 6:16 PM DRESSING ROOM P[facility] MANUAL DIFFERENTIAL STAT 05/13/2024 4 :57 PM DRESSING ROOM PORTER CBC WITH PLATELETS AND DIFFERENTIAL STAT 05/13/2024 4:57 PM DRESSING ROOM P[facility] TROPONIN T, HIGH SENSITIVITY STAT 05/13/2024 4:57 PM DRESSING ROOM P[facility]TER CBC WITH PLATELETS & DIFFERENTIAL STAT 05/13/2024 4:57 PM DRESSING ROOM P[facility] RETICULOCYTE COUNT STAT 05/13/2024 4: 57 PM DRESSING ROOM P[facility] HEPATIC FUNCTION PANEL STAT 4:57 PM DRESSING ROOM PORTER BASIC METABOLIC PANEL STAT 05/13/2024 4:57 PM DRESSING ROOM P[facility]TER ECG 12-LEAD WITH MUSE [facility] STAT 05/13/2024 3:38 PM DRESSING ROOM P[facility] documented in this encounter Results * Extra Purple Top Tube (05/13/2024 6:17 PM DRESSING ROOM PORTER) Pathologist [facility] Hold Specimen JI 05/13/2024 7:31 PM DRESSING ROOM PORTER [facility] Blood STRUCTURE OF RIGHT UPPER LIMB / Unknown Venipuncture / Unknown 05/13/2024 6:17 PM DRESSING ROOM P[facility] 05/13/2024 6:23 PM DRESSING ROOM PORTER us Shaheen Unger MD LAB - BLOOD ORDERABLES Final Res ult Performing Organization Address [facility] Co de Phone Number [facility] [address] [facility] [address] [place] [address], [facility] * (ABNORMAL) Lactate Dehydrogenase (05/13/2024 6:16 PM DRESSING ROOM PORTER) [facility] Lactate Dehydrogenase 514(H) 0 - 250 U/L 05/13/2024 6:42 PM DRESSING ROOM P[facility]TER [facility] Blood STRUCTURE OF RIGHT UPPER LIMB / Unknown Venipuncture / Unknown 05/13/2024 6:16 PM DRESSING ROOM P[facility]TER 05/13/2024 6:23 PM DRESSING ROOM PORTER us Shaheen Unger MD LAB - BLOOD ORDERABLES Final Res ult Performing Organization Address City/[facility]/ZIP Co de Phone Number [facility] [address] [facility] [address] [place] [address], [facility] * (ABNORMAL) Manual Differential (05/13/2024 4:57 PM DRESSING ROOM P[facility]TER) % Neutrophils 63 % JARET 05/13/2024 5:54 PM [facility] % Lymphocytes 25 % JARET 05/13/2024 5:54 PM [facility] % Monocytes 11 % JARET 05/13/2024 5:54 PM [facility] % Eosinophils 1 % JARET 05/13/2024 5:54 PM [facility] % Basophils 0 % JARET 05/13/2024 5:54 PM [facility] Absolute Neutrophils 11.0(H) 1.6 - 8.3 10e3/uL JARET 05/13/2024 5:54 PM [facility] Absolute Lymphocytes 4.4 0.8 - 5.3 10e3/uL JARET 05/13/2024 5:54 PM [facility] Absolute Monocytes 1.9(H) 0.0 - 1.3 10e3/uL JARET 05/13/2024 5:54 PM [facility] Absolute Eosinophils 0.2 0.0 - 0.7 10e3/uL JARET 05/13/2024 5:54 PM [facility] Absolute Basophils 0.0 0.0 - 0.2 10e3/uL JARET 05/13/2024 5:54 PM [facility] RBC Morphology Confirmed RBC Indices JARET 05/13/2024 5:54 PM [facility] Platelet Assessment Automated Count Confirmed. Platelet morphology is normal. Automated Count Confirmed. Platelet morphology is normal. JARET 05/13/2024 5:54 PM [facility] Acanthocytes Slight(A) None Seen JARET 05/13/2024 5:54 PM [facility] Elliptocytes Slight(A) None Seen JARET 05/13/2024 5:54 PM [facility] Polychromasia Slight(A) None Seen JARET 05/13/2024 5:54 PM [facility] Sickle Cells Moderate(A) None Seen JARET 05/13/2024 5:54 PM [facility] Target Cells Slight(A) None Seen JARET 05/13/2024 5:54 PM [facility] Blood VENOUS LINE / Unknown Venipuncture / Unknown 05/13/2024 4:57 PM DRESSING ROOM [facility] 05/13/2024 5:09 PM DRESSING ROOM P[facility]TER Shaheen Unger MD LAB - BLOOD ORDERABLES Final Res ult [facility] [address] [facility] [place] [address], [facility] * (ABNORMAL) CBC with platelets and differential (05/13/2024 4:57 PM DRESSING ROOM PORTER) [facility] WBC Count 17.4(H) 4.0 - 11.0 10e3/uL 05/13/2024 5:54 PM [facility] RBC Count 2.16(L) 3.80 - 5.20 10e6/uL 05/13/2024 5:54 PM [facility] Hemoglobin 7.1(L) 11.7 - 15.7 g/dL 05/13/2024 5:54 PM [facility] Hematocrit 19.9(L) 35.0 - 47.0 % 05/13/2024 5:54 PM [facility] MCV 92 78 - 100 fL 05/13/2024 5:54 PM [facility] MCH 32.9 26.5 - 33.0 pg 05/13/2024 5:54 PM [facility] MCHC 35.7 31.5 - 36.5 g/dL 05/13/2024 5:54 PM [facility] RDW 24.5(H) 10.0 - 15.0 % 05/13/2024 5:54 PM [facility] Platelet Count 459(H) 150 - 450 10e3/uL 05/13/2024 5:54 PM [facility] Blood VENOUS LINE / Unknown Venipuncture / Unknown 05/13/2024 4:57 PM DRESSING ROOM [facility] 05/13/2024 5:09 PM DRESSING ROOM P[facility]TER Shaheen Unger MD LAB - BLOOD ORDERABLES Final Res ult [facility] [address] [place] [address], [place] * Troponin T, High Sensitivity (05/13/2024 4:57 PM DRESSING ROOM PORTER) Pathologist [facility] Troponin T, High Sensitivity <6 <=14 ng/L 05/13/2024 5:31 PM DRESSING ROOM PORTER [facility] Comment: Either a High Sensitivity [...] Unknown Venipuncture / Unknown 05/13/2024 4:57 PM DRESSING ROOM P[facility]TER 05/13/2024 5:09 PM DRESSING ROOM PORTER us Shaheen Unger MD LAB - BLOOD ORDERABLES Final Res ult [facility] [address] [facility] [place], [place] [address] * (ABNORMAL) Reticulocyte count (05/13/2024 4:57 PM DRESSING ROOM PORTER) Pathologist [facility] % Reticulocyte 25.9(H) 0.5 - 2.0 % 05/13/2024 5:33 PM DRESSING ROOM PORTER [facility] Absolute Reticulocyte 0.566(H) 0.025 - 0.095 10e6/uL 05/13/2024 5:33 PM DRESSING ROOM PORTER [facility] Blood VENOUS LINE / Unknown Venipuncture / Unknown 05/13/2024 4:57 PM DRESSING ROOM P[facility]TER 05/13/2024 5:09 PM DRESSING ROOM PORTER us Shaheen Unger MD LAB - BLOOD ORDERABLES Final Res ult [facility] [address] [facility] [address] [place] [address], [facility] * (ABNORMAL) Hepatic function panel (05/13/2024 4:57 PM DRESSING ROOM PORTER) [facility] Protein Total 7.4 6.4 - 8.3 g/dL 05/13/2024 5:38 PM [facility] Albumin 4.1 3.5 - 5.2 g/dL 05/13/2024 5:38 PM [facility] Bilirubin Total 2.4(H) <=1.2 mg/dL 05/13/2024 5:38 PM [facility] Alkaline Phosphatase 111 40 - 150 U/L 05/13/2024 5:38 PM [facility] AST 64(H) 0 - 45 U/L 05/13/2024 5:38 PM [facility] ALT 36 0 - 50 U/L 05/13/2024 5:38 PM [facility] Bilirubin Direct 05/13/19 25 5:38 PM [facility] Comment:Unsatisfactory speci men - hemolyzed Blood VENOUS LINE / Unknown Venipuncture / Unknown 05/13/2024 4:57 PM DRESSING ROOM P[facility]TER 05/13/2024 5:09 PM [facility] Shaheen Unger MD LAB - BLOOD ORDERABLES Final Res ult Performing Organization Address [facility]/State/ZIP Co de Phone Number [facility] [address] [place] [address] [place] [address], [facility] * (ABNORMAL) Basic metabolic panel (05/13/2024 4:57 PM DRESSING ROOM PORTER) [facility] Sodium 136 135 - 145 mmol/L 05/13/2024 5:31 PM [facility] Potassium 4.8 3.4 - 5.3 mmol/L 05/13/2024 5:31 PM [facility] Chloride 104 98 - 107 mmol/L 05/13/2024 5:31 PM [facility] Carbon Dioxide (CO2) 19(L) 22 - 29 mmol/L 05/13/2024 5:31 PM [facility] Anion Gap 13 7 - 15 mmol/L 05/13/2024 5:31 PM DRESSING ROOM PORTER [facility] Urea Nitrogen 9.1 6.0 - 20.0 mg/dL 05/13/2024 5:31 PM [facility] Creatinine 0.69 0.51 - 0.95 mg/dL 05/13/2024 5:31 PM [facility] GFR Estimate >90 >60 mL/min/1.7 3m2 05/13/2024 5:31 PM [facility] Comment:eGFR calculated usin g 2020 CKD-EPI equation. Calcium 8.3(L) 8.8 - 10.4 mg/dL 05/13/2024 5:31 PM [facility] Comment:Reference intervals for this test were updated on 11/09/2023 to reflect our healthy population more accurately. There may be differences in the flagging of prior results with similar values performed with this method. Those prior results can be interpreted in the context of the updated reference intervals. Glucose 103(H) 70 - 99 mg/dL 05/13/2024 5:31 PM [facility] Blood VENOUS LINE / Unknown Venipuncture / Unknown 05/13/2024 4:57 PM DRESSING ROOM P[facility] 05/13/2024 5:09 PM DRESSING ROOM P[facility]TER us Shaheen Unger MD LAB - BLOOD ORDERABLES Final Res ult [facility] [address] [facility] [address] [place] [address], [facility] * ECG 12-LEAD WITH MUSE (LHE) (05/13/2024 3:38 PM DRESSING ROOM P[facility]TER) Systolic Blood Pressure mmHg RADIOLOGY RESULTS Diastolic Blood Pressure mmHg RADIOLOGY RESULTS Ventricular Rate 102 BPM RAD IOLOGY RESULTS Atrial Rate 102 BPM RADIOLOG Y RESULTS CO Interval 144 ms RADIOLOG Y RESULTS QRS Duration 84 ms RADIOLO GY RESULTS QT 322 ms RADIOLOGY RESULTS QTc 419 ms RADIOLOGY RESULTS P [place] 32 degrees RADIOLOGY RESULTS R AXIS 59 degrees RADIOLOGY RESULTS T [place] 37 degrees RADIOLOGY RESULTS Interpretation ECG Sinus tachycardia Nonspecific T wave abnormality Abnormal ECG When compared with ECG of 08-May-2024 15:13, No significant change was found Confirmed by SEE ED PROVIDER NOTE FOR, ECG INTERPRETATION (4000), business editor Leticia Warner ([id number]) on 05/13/2024 4:13:45 PM RADIOLOGY RESULTS 05/13/2024 3:38 PM DRESSING ROOM [facility] 05/13/2024 4:13 PM DRESSING ROOM P[facility] Shaheen Unger MD ECG ORDERABLES Edited Result [...] For 1 dose $Given 05/13/2024 5:38 PM DRESSING ROOM P[facility]TER 25 mg diphenhydrAMINE (BENADRYL) injection 25 mg 25 mg, Intravenous, ONCE, On 05/13/24 at 1900, For 1 dose $Given 05/13/2024 7:05 PM DRESSING ROOM P[facility]TER 25 mg HYDROmorphone (DILAUDID) injection 1 mg 1 mg, Intravenous, EVERY 1 HOUR PRN, moderate pain, severe pain, Starting on 05/13/24 at 1610, For 1 dose, Notify the provider to assess for uncontrolled pain or analgesic side effects. Hold while on IV BLACK AND WHITE PRINTER OPERATOR or with regular IV opioid dosing. $Given 05/13/2024 4:58 PM DRESSING ROOM PORTER 1 mg HYDROmorphone (DILAUDID) injection 1 mg 1 mg, Intravenous, ONCE, On 05/13/24 at 1800, For 1 dose $Given 05/13/2024 6:00 PM DRESSING ROOM PORTER 1 mg HYDROmorphone (DILAUDID) injection 1 mg 1 mg, Intravenous, ONCE, On 05/13/24 at 1930, For 1 dose $Given 05/13/2024 7:28 PM DRESSING ROOM PORTER 1 mg lactated ringers BOLUS 1,000 mL Intravenous, 1,000 mL, ONCE, at 500 mL/hr, Administer over 2 Hours, On 05/13/24 at 1630, For 1 dose $New Bag 05/13/2024 5:01 PM DRESSING ROOM P[facility]TER 1,000 mLs 500 mL/hr documented in this encounter Active and Recently Administered Medications Times are shown in DRESSING ROOM PORTER. Scheduled Medication Order 05/11/2024 05/12/202405/13/2024 diphenhydrAMINE (BENADRYL) injection 25 mg (COMPLETED) 25 mg, Intravenous, ONCE, On 05/13/24 at 1800, For 1 dose 1738 ($Given - Provi nas: Cherrie Garcia RN) diphenhydrAMINE (BENADRYL) injection 25 mg (COMPLETED) 25 mg, Intravenous, ONCE, On 05/13/24 at 1900, For 1 dose 1905 ($Given - Provi nas: hCerrie Garcia RN) HYDROmorphone (DILAUDID) injection 1 mg [...] analgesic side effects. Hold while on IV BLACK AND WHITE PRINTER OPERATOR or with regular IV opioid dosing. 1658 ($Given - Provi nas: Cherrie Garcia RN) documented in this encounter Care Teams Label Remover Relationship Specialty Start Date End Date No Ref-Primary, Physician PCP - General 03/15/24 06/17/24 Mor Ramsey Medical Student 04/03/24 documented as of this encounter
--- OUTSIDE RECORDS SUMMARY | 2024-06-25 14:31 | XMS_ITS | Encounter Summary ---
Author Organization [place] Address [address] [place] [address] Care Team Providers Care Substation Design Draftsperson Name Role Phone No Ref-Primary, Physician Primary Care Provider Mor Ramesy Unavailable Unavailable Case Samuel MD Unavailable [phone] Juhi Benson RN Unavailable Unavailable Reason for Visit * Reason Comments Sickle Cell Pain Crisis Encounter Details Date Type Department Care Team (Late st Contact Info) Description 05/31/2024 9:56 PM CHUCK SPLITTER - 06/01/2024 12:46 AM [facility] Emergency [facility] Emergency Room [facility] [place] [address] Carley Riggins MD [address] [address] Sickle cell pain crisis (H) Discharge Disposition: [...] on file Legal Sex Female 8:25 AM CHUCK SPLITTER Gender Identity Not on file Sexual Orientation Not on file documented as of this encounter Last Filed Vital Signs Vital Sign Reading Time Taken Comments Blood Pressure 118/63 06/01/2024 12:41 AM CHUCK SPLITTER Pulse 71 06/01/2024 12:41 AM CHUCK SPLITTER Temperature 36.7 C (98 F) 05/31/2024 9:39 PM CHUCK SPLITTER Respiratory Rate 20 05/31/2024 9:39 PM CHUCK SPLITTER Oxygen Saturation 98% 06/01/2024 12:41 AM CHUCK SPLITTER Inhaled Oxygen Concentration - - Weight 54.4 kg (120 lb) 05/31/2024 9:39 PM CHUCK SPLITTER Height 154.9 cm (5' 1) 05/31/2024 9:39 PM CHUCK SPLITTER Body Mass Index 22.67 05/31/2024 9:39 PM CHUCK SPLITTER documented in this encounter Discharge Instructions * Attachments The following attachments cannot be sent through Care Everywhere. * Sickle Cell Crisis (Syrian) documented in this encounter Medications at Time [...] her left chest. She recently moved to [place] from [place], and notes the difference in temperature may be exacerbating her symptoms. Patient denies any other complaints at this time. 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 Visit to [facility] ER on 29-May-2024 for sickle cell pain [...] 11/2022 culture-negative, 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 Recently moved to [place] from [place], [place]. She is 1 of 9 [...] Social Connections: Socially Integrated (03/28/2024) [facility] [employer] [facility] Social [facility]ctions Do you often feel lonely [...] Automated Count Confirmed. Platelet morphology is normal. Ridgeway Cells Slight (*) Elliptocytes Slight (*) [place] Bodies Present (*) Polychromasia Slight (*) Sickle [...] my direction. Carley Riggins M.D. Emergency Medicine [facility] EMERGENCY ROOM [address] [facility] [id number] Dept: [phone] Carley Riggins MD 06/01/24 0048 K SPLITTER * Aminata Farley RN - 05/31/2024 9:40 PM CST Pt is coming in with a sickle cell crisis. 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 Tylenol last at 1700 Ibuprofen last at 2100 Triage Assessment (Adult) Row Name 05/31/242139 Triage Assessment Airway WDL WDL Respiratory WDL Respiratory WDL WDL Skin Circulation/Temperature WDL Skin Circulation/Temperature WDL WDL Cardiac WDL Cardiac WDL WDL Peripheral/Neurovascular WDL Peripheral Neurovascular WDL WDL Cognitive/Neuro/Behavioral WDL Cognitive/Neuro/Behavioral WDL WDL K SPLITTER documented in this encounter Plan of Treatment Not on file documented as of this encounter Goals Goal Patient Goal Type Associated Problems Recent Progress Patient-Stated? Author Pain Management General On track( 025 12:40 PM CHUCK SPLITTER) Yes Juhi Benson, RN Note: Goal Statement: [...] AND PLATELET MORPHOLOGY STAT 05/31/2024 10:21 PM CHUCK SPLITTER CBC WITH PLATELETS AND DIFFERENTIAL STAT 05/31/2024 10:21 PM CHUCK SPLITTER CBC WITH PLATELETS & DIFFERENTIAL STAT 05/31/2024 10:21 PM CHUCK SPLITTER RETICULOCYTE COUNT STAT 05/31/2024 10 :21 PM CHUCK SPLITTER BASIC METABOLIC PANEL STAT 05/31/2024 10:21 PM CHUCK SPLITTER documented in this encounter Results * (ABNORMAL) RBC and Platelet Morphology (05/31/2024 10:21 PM CHUCK SPLITTER) [facility] RBC Morphology Confirmed RBC Indices 05/31/2024 10:59 PM CHUCK SPLITTER [facility] Platelet Assessment Automated Count Confirmed. Platelet morphology is normal. Automated Count Confirmed. Platelet morphology is normal. JARET 05/31/2024 10:59 PM CHUCK SPLITTER [facility] Mary Cells Slight(A) None Seen JARET 05/31/2024 10:59 PM CHUCK SPLITTER [facility] Elliptocytes Slight(A) None Seen JARET 05/31/2024 10:59 PM CHUCK SPLITTER [facility] [place]ler[place] Bodies Present(A) None Seen JARET 05/31/2024 10:59 PM CHUCK SPLITTER [facility] Polychromasia Slight(A) None Seen JARET 05/31/2024 10:59 PM CHUCK SPLITTER [facility] Sickle Cells Moderate(A) None Seen JARET 05/31/2024 10:59 PM CHUCK SPLITTER [facility] Target Cells Slight(A) None Seen JARET 05/31/2024 10:59 PM CHUCK SPLITTER [facility] Blood BLOOD SPECIMEN / Unknown Venipuncture / Unknown 05/31/2024 10:21 PM CHUCK SPLITTER 05/31/2024 10:24 PM CHUCK SPLITTER us Carley Riggins MD LAB - BLOOD ORDERABLES [facility] Result [facility] [address] [facility] [address] [place] [address], [facility] * (ABNORMAL) CBC with platelets and differential (05/31/2024 10:21 PM CHUCK SPLITTER) [facility] WBC Count 15.4(H) 4.0 - 11.0 10e3/uL 05/31/2024 10:55 PM [facility] RBC Count 2.73(L) 3.80 - 5.20 10e6/uL 05/31/2024 10:55 PM [facility] Hemoglobin 8.9(L) 11.7 - 15.7 g/dL 05/31/2024 10:55 PM [facility] Hematocrit 24.8(L) 35.0 - 47.0 % 05/31/2024 10:55 PM [facility] MCV 91 78 - 100 fL 05/31/2024 10:55 PM [facility] MCH 32.6 26.5 - 33.0 pg 05/31/2024 10:55 PM [facility] MCHC 35.9 31.5 - 36.5 g/dL 05/31/2024 10:55 PM [facility] RDW 21.2(H) 10.0 - 15.0 % 05/31/2024 10:55 PM [facility] Platelet Count 399 150 - 450 10e3/uL 05/31/2024 10:55 PM [facility] % Neutrophils 56 % 05/31/2024 10:55 PM [facility] % Lymphocytes 27 % 05/31/2024 10:55 PM [facility] % Monocytes 14 % 05/31/2024 10:55 PM [facility] % Eosinophils 1 % 05/31/2024 10:55 PM [facility] % Basophils 1 % 05/31/2024 10:55 PM [facility] % Immature Granulocytes 1 % 05/31/2024 10:55 PM [facility] NRBCs per 100 WBC 2(H) <1 /100 025 10:55 PM [facility] Absolute Neutrophils 8.7(H) 1.6 - 8.3 10e3/uL 05/31/2024 10:55 PM [facility] Absolute Lymphocytes 4.2 0.8 - 5.3 10e3/uL 05/31/2024 10:55 PM [facility] Absolute Monocytes 2.2(H) 0.0 - 1.3 10e3/uL 05/31/2024 10:55 PM [facility] Absolute Eosinophils 0.2 0.0 - 0.7 10e3/uL 05/31/2024 10:55 PM [facility] Absolute Basophils 0.1 0.0 - 0.2 10e3/uL 05/31/2024 10:55 PM [facility] Absolute Immature Granulocytes 0.1 <=0.4 10e3/uL 05/31/2024 10:55 PM [facility] Absolute NRBCs 0.3 10e3/uL 05/31/2024 10:55 PM [facility] Blood BLOOD SPECIMEN / Unknown Venipuncture / Unknown 05/31/2024 10:21 PM CHUCK SPLITTER 05/31/2024 10:24 PM [facility] us Carley Riggins MD LAB - BLOOD ORDERABLES [facility] Result [facility] [address] [address] [place] [address], [facility] * (ABNORMAL) Basic metabolic panel (05/31/2024 10:21 PM [facility]) Sodium 133(L) 135 - 145 mmol/L 05/31/2024 10:46 PM [facility] Potassium 4.1 3.4 - 5.3 mmol/L 05/31/2024 10:46 PM [facility] Chloride 102 98 - 107 mmol/L 05/31/2024 10:46 PM [facility] Carbon Dioxide (CO2) 20(L) 22 - 29 mmol/L 05/31/2024 10:46 PM [facility] Anion Gap 11 7 - 15 mmol/L 05/31/2024 10:46 PM [facility] Urea Nitrogen 9.9 6.0 - 20.0 mg/dL 05/31/2024 10:46 PM [facility] Creatinine 0.70 0.51 - 0.95 mg/dL 05/31/2024 10:46 PM [facility] GFR Estimate >90 >60 mL/min/1.7 3m2 05/31/2024 10:46 PM [facility] Comment:eGFR calculated usin g 2020 CKD-EPI equation. Calcium 9.0 8.8 - 10.4 mg/dL 05/31/2024 10:46 PM [facility] Glucose 97 70 - 99 mg/dL 05/31/2024 10:46 PM CHUCK SPLITTER [facility] Blood BLOOD SPECIMEN / Unknown Venipuncture / Unknown 05/31/2024 10:21 PM CHUCK SPLITTER 05/31/2024 10:24 PM CHUCK SPLITTER Carley Riggins MD LAB - BLOOD ORDERABLES Liss l Result Performing Organization Address [facility]/ZIP Co de Phone Number [facility] [address] [place] [address] [place] Mun[place] [id number], [facility] * (ABNORMAL) Reticulocyte count (05/31/2024 10:21 PM CHUCK SPLITTER) [facility] % Reticulocyte 22.7(H) 0.5 - 2.0 % 05/31/2024 10:45 PM CHUCK SPLITTER [facility] Absolute Reticulocyte 0.631(H) 0.025 - 0.095 10e6/uL 05/31/2024 10:45 PM CHUCK SPLITTER [facility] Blood BLOOD SPECIMEN / Unknown Venipuncture / Unknown 05/31/2024 10:21 PM CHUCK SPLITTER 05/31/2024 10:24 PM CHUCK SPLITTER Carley Riggins MD LAB - BLOOD ORDERABLES Liss l Result Performing Organization Address [facility] de Phone Number [facility] [address] [place] [address] [place] [id number], [facility] documented in this encounter Visit Diagnoses Diagnosis 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 documented in this encounter Administered Medications Inactive Administered Medications - up to 3 most recent administrations Medication Order MAR Action Action Date Dose Rate Site diphenhydrAMINE (BENADRYL) capsule 25 mg 25 mg, Oral, ONCE, On Wed05/31/24 at 2300, For 1 dose $Given 05/31/2024 10:50 PM CHUCK SPLITTER 25 mg heparin lock flush 100 unit/mL injection 100 Units 100 Units, Intracatheter, ONCE, On Wed06/01/24 at 0030, For 1 dose $Given 06/01/2024 12:39 AM CHUCK SPLITTER 100 Units HYDROmorphone (DILAUDID) injection 2 mg 2 mg, Intravenous, EVERY 1 HOUR PRN, severe pain, Starting on Wed05/31/24 at 2143, For 3 doses $Given 06/01/2024 12:36 AM CHUCK SPLITTER 2 mg $Given 05/31/2024 11:42 PM CHUCK SPLITTER 2 mg $Given 05/31/2024 10:28 PM CHUCK SPLITTER 2 mg lactated ringers infusion at 500 mL/hr, Intravenous, CONTINUOUS, Starting on Wed05/31/24 at 2200, Until Wed05/31/24 at 2359 $New Bag 05/31/2024 10:22 PM CHUCK SPLITTER 500 mL/hr ondansetron (ZOFRAN) injection 8 mg 8 mg, Intravenous, ONCE, Administer over 2-5 Minutes, On Wed05/31/24 at 2200, For 1 dose $Given 05/31/2024 10:27 PM CHUCK SPLITTER 8 mg documented in this encounter Active and Recently Administered Medications Times are shown in CHUCK SPLITTER. Scheduled Medication Order 05/30/2024 05/31/2024 06/01/2024 diphenhydrAMINE [...] SOFIA) documented in this encounter Care Teams Substation Design Draftsperson Relationship Specialty Start Date End Date No Ref-Primary, Physician PCP - General 03/15/24 06/17/24 Roxy Mor Medical Student 04/03/24 Case Samuel MD [address] [place] [address], [address] [place] [address] Assigned Pediatric Specialist Provider 05/18/24 Juhi Benson, SOFIA Specialty Ceo & Board Director Hematology & Oncology 05/29/24 documented as of this encounter
--- OUTSIDE RECORDS SUMMARY | 2024-06-25 14:31 | XMS_ITS | Encounter Summary ---
Author Organization [place] Address [address] [place] [address]. [place] [address] Care Team Providers Care Social Work Administrator Name Role Phone No Ref-Primary, Physician Primary Care Provider Mor Ramsey Unavailable Unavailable Case Samuel MD Unavailable Encounter Details Date Type Department Care [...] on file Legal Sex Female 8:25 AM PHOTOTYPESETTER OPERATOR Gender Identity Not on file Sexual Orientation Not on file documented as of this encounter Plan of Treatment Not on file documented as of this encounter Goals Goal Patient Goal Type Associated Problems Recent Progress Patient-Stated? Author Pain Management General On track( 025 12:40 PM PHOTOTYPESETTER OPERATOR) Yes Juhi Benson, RN Note: Goal [...] on filedocumented in this encounter Care Teams Social Work Administrator Relationship Specialty Start Date End Date No Ref-Primary, Physician PCP - General 03/15/24 06/17/24 Mor Ramsey Medical Student 04/03/24 Case Samuel MD [address] [place] [address], [address] [place] [address] Assigned Pediatric Specialist Provider 05/18/24 documented as of this encounter
--- OUTSIDE RECORDS SUMMARY | 2024-06-25 14:31 | XMS_ITS | Encounter Summary ---
Author Organization [place] Address [address] [place] [address]. [place] [address] Care Team Providers Care Guide Dog Mobility Instructor Name Role Phone No Ref-Primary, Physician Primary Care Provider Mor Ramsey Unavailable Unavailable Case Samuel MD Unavailable [phone] Encounter Details Date Type Department Care Team [...] on file Legal Sex Female 8:25 AM MODEL MAKER FIREARMS Gender Identity Not on file Sexual Orientation Not on file documented as of this encounter Plan of Treatment Not on file documented as of this encounter Goals Goal Patient Goal Type Associated Problems Recent Progress Patient-Stated? Author Pain Management General On track( 025 12:40 PM MODEL MAKER FIREARMS) Yes Juhi Benson, RN Note: Goal Statement: [...] on filedocumented in this encounter Care Teams Guide Dog Mobility Instructor Relationship Specialty Start Date End Date No Ref-Primary, Physician PCP - General 03/15/24 06/17/24 Mor Ramsey Medical Student 04/03/24 Case Samuel MD [address] [place] [address], [address] [place] [address] Assigned Pediatric Specialist Provider 05/18/24 documented as of this encounter
--- OUTSIDE RECORDS SUMMARY | 2024-06-25 14:31 | XMS_ITS | Encounter Summary ---
Author Organization [facility] Address [address] [place] [address]. [place] [address] Care Team Providers Care Roller Skates Assembler Name Role Phone No Ref-Primary, Physician Primary Care Provider Mor Ramsey Unavailable Unavailable Case Samuel MD Unavailable [phone] Juhi Benson RN Unavailable Unavailable Reason for Visit * Reason Comments Sickle Cell Pain Crisis Encounter Details Date Type Department Care Team (Late st Contact Info) Description 05/28/2024 11:56 PM PHYSICS TECHNICIAN - 05/29/2024 3:54 AM PHYSICS TECHNICIAN Emergency [facility] Emergency Room [facility] [place] [address] Lenin Smith MD [address] [place] [id number] Sickle cell disease with crisis (H) Discharge [...] on file Legal Sex Female 8:25 AM PHYSICS TECHNICIAN Gender Identity Not on file Sexual Orientation Not on file documented as of this encounter Last Filed Vital Signs Vital Sign Reading Time Taken Comments Blood Pressure 123/66 05/29/2024 3:15 AM PHYSICS TECHNICIAN Pulse 87 05/29/2024 3:15 AM PHYSICS TECHNICIAN Temperature 36.6 C (97.9 F) 05/29/2024 12:01 AM PHYSICS TECHNICIAN Respiratory Rate 18 05/29/2024 12:01 AM PHYSICS TECHNICIAN Oxygen Saturation 93% 05/29/2024 3:15 AM PHYSICS TECHNICIAN Inhaled Oxygen Concentration - - Weight 51.7 kg (114 lb) 05/29/2024 12:01 AM PHYSICS TECHNICIAN Height 154.9 cm (5' 1) 05/29/2024 12:01 AM PHYSICS TECHNICIAN Body Mass Index 21.54 05/29/2024 12:01 AM PHYSICS TECHNICIAN documented in this encounter Discharge Instructions * Attachments The following attachments cannot be sent through Care Everywhere. * Sickle Cell Crisis (Romanian) documented in this encounter Medications at Time [...] time. Patient comfortable and agrees with plan. ICS TECHNICIAN * Lenin Smith MD - 05/29/2024 12:17 [...] go home. Has an appointment with her wire annealer today. Willfollow-up then. No indication for transfusion [...] with other provider:Did you involve another provider (eligibility consultant, , pharmacy, etc.)?: No Discharge. No [...] information was obtained from: Patient Use of Underground Mine Machinery Mechanic: N/A Gianna Hernández is a 29 year [...] birthdayand they walked around the [facility], patient believes she might have [...] home in stable condition. 05/25 Admission to [facility] for bilateral port placements with apheresis port on right and smart port on left. 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 Recently moved to [place] from [place], [place]. She is 1 of 9 [...] (03/28/2024) Received from [facility] [employer] [facility] Social Connections Do you often feel [...] my direction. Lenin Smith M.D. Emergency Medicine [facility] EMERGENCY ROOM [facility] [facility] [id number] Dept: [phone] Lenin Smith MD 05/29/24 0412 ICS TECHNICIAN * Moy Stewart RN - 05/29/2024 12:02 [...] WDL WDL Cognitive/Neuro/Behavioral WDL Cognitive/Neuro/Behavioral WDL WDL ICS TECHNICIAN documented in this encounter Plan of Treatment Not on file documented as of this encounter Goals Goal Patient Goal Type Associated Problems Recent Progress Patient-Stated? Author Pain Management General On track( 025 12:40 PM PHYSICS TECHNICIAN) Yes Juhi Benson, SOFIA Note: Goal [...] MANUAL DIFFERENTIAL STAT 05/29/2024 1 2:53 AM PHYSICS TECHNICIAN CBC WITH PLATELETS AND DIFFERENTIAL STAT 05/29/2024 12:53 AM PHYSICS TECHNICIAN CBC WITH PLATELETS & DIFFERENTIAL STAT 05/29/2024 12:53 AM PHYSICS TECHNICIAN RETICULOCYTE COUNT STAT 05/29/2024 12 :53 AM PHYSICS TECHNICIAN documented in this encounter Results * (ABNORMAL) Manual Differential (05/29/2024 12:53 AM PHYSICS TECHNICIAN) % Neutrophils 54 % JARET 05/29/2024 1:58 AM PHYSICS TECHNICIAN [facility] % Lymphocytes 34 % JARET 05/29/2024 1:58 AM PHYSICS TECHNICIAN [facility] % Monocytes 10 % JARET 05/29/2024 1:58 AM PHYSICS TECHNICIAN [facility] % Eosinophils 1 % JARET 05/29/2024 1:58 AM [facility] % Basophils 1 % JARET 05/29/2024 1:58 AM [facility] Absolute Neutrophils 8.4(H) 1.6 - 8.3 10e3/uL JARET 05/29/2024 1:58 AM [facility] Absolute Lymphocytes 5.3 0.8 - 5.3 10e3/uL JARET 05/29/2024 1:58 AM [facility] Absolute Monocytes 1.6(H) 0.0 - 1.3 10e3/uL JARET 05/29/2024 1:58 AM [facility] Absolute Eosinophils 0.2 0.0 - 0.7 10e3/uL JARET 05/29/2024 1:58 AM [facility] Absolute Basophils 0.2 0.0 - 0.2 10e3/uL JARET 05/29/2024 1:58 AM [facility] NRBCs per 100 WBC 3 % JARET 05/29/2024 1:58 AM [facility] Absolute NRBCs 0.5 10e3/uL JARET 05/29/2024 1:58 AM [facility] RBC Morphology Confirmed RBC Indices JARET 05/29/2024 1:58 AM [facility] Platelet Assessment Automated Count Confirmed. Platelet morphology is normal. Automated Count Confirmed. Platelet morphology is normal. [facility] 05/29/2024 1:58 AM [facility] Polychromasia Moderate(A) None Seen JARET 05/29/2024 1:58 AM [facility] Sickle Cells Moderate(A) None Seen [facility] 05/29/2024 1:58 AM [facility] Blood VENOUS LINE / Unknown Venipuncture / Unknown 05/29/2024 12:53 AM [facility] 05/29/2024 12:58 AM [facility] us Lenin Smith MD LAB - BLOOD ORDERABLES Final Result [facility] [address] [place] [place] [address], [facility] * (ABNORMAL) CBC with platelets and differential (05/29/2024 12:53 AM [facility]) [facility] WBC Count 15.6(H) 4.0 - 11.0 10e3/uL 05/29/2024 1:58 AM [facility] RBC Count 2.09(L) 3.80 - 5.20 10e6/uL 05/29/2024 1:58 AM [facility] Hemoglobin 6.7(LL) 11.7 - 15.7 g/dL 05/29/2024 1:58 AM [facility] Hematocrit 19.2(L) 35.0 - 47.0 % 05/29/2024 1:58 AM [facility] MCV 92 78 - 100 fL 05/29/2024 1:58 AM [facility] MCH 32.1 26.5 - 33.0 pg 05/29/2024 1:58 AM [facility] MCHC 34.9 31.5 - 36.5 g/dL 05/29/2024 1:58 AM [facility] RDW 23.0(H) 10.0 - 15.0 % 05/29/2024 1:58 AM [facility] Platelet Count 405 150 - 450 10e3/uL 05/29/2024 1:58 AM [facility] Blood VENOUS LINE / Unknown Venipuncture / Unknown 05/29/2024 12:53 AM PHYSICS TECHNICIAN 05/29/2024 12:58 AM [facility] Lenin Smith MD LAB - BLOOD ORDERABLES Final Result [facility] [address] [place] [address], [facility] * (ABNORMAL) Reticulocyte count (05/29/2024 12:53 AM PHYSICS TECHNICIAN) [facility] % Reticulocyte 28.6(H) 0.5 - 2.0 % 05/29/2024 1:27 AM [facility] Absolute Reticulocyte 0.616(H) 0.025 - 0.095 10e6/uL 05/29/2024 1:27 AM [facility] Blood VENOUS LINE / Unknown Venipuncture / Unknown 05/29/2024 12:53 AM PHYSICS TECHNICIAN 05/29/2024 12:58 AM PHYSICS TECHNICIAN us Lenin Smith MD LAB - BLOOD ORDERABLES Final Result [facility] [address] [place] [address], [facility] documented in this encounter Visit [...] For 1 dose $Given 05/29/2024 1:26 AM PHYSICS TECHNICIAN 25 mg heparin lock flush 10 unit/mL [...] each port lumen $Given 05/29/2024 3:38 AM PHYSICS TECHNICIAN 5 mLs HYDROmorphone (DILAUDID) injection 2 mg 2 mg, Intravenous, EVERY 1 HOUR PRN, severe pain, moderate pain, Starting on Wed05/29/24 at 0010, For 3 doses $Given 05/29/2024 3:37 AM PHYSICS TECHNICIAN 2 mg $Given 05/29/2024 2:37 AM PHYSICS TECHNICIAN 2 mg $Given 05/29/2024 1:19 AM PHYSICS TECHNICIAN 2 mg lactated ringers BOLUS 1,000 mL Intravenous, 1,000 mL, ONCE, at 1,000 mL/hr, Administer over 1 Hours, On Wed05/29/24 at 0030, For 1 dose $New Bag 05/29/2024 1:01 AM PHYSICS TECHNICIAN 1,000 mLs 1000 mL/hr sodium chloride (PF) 0.9% PF flush 10-20 mL 10-20 mL, Intracatheter, EVERY 1 MIN PRN, line flush, post meds or blood draw, to flush each lumen of the CVC Implanted port, Starting on Wed05/29/24 at 0008, 10 mL per port lumen post IV meds; 20 mL per port lumen post post blood draw. $Given 05/29/2024 3:37 AM PHYSICS TECHNICIAN 10 mLs sodium chloride (PF) 0.9% PF [...] Recently Administered Medications Times are shown in PHYSICS TECHNICIAN. Scheduled Medication Order 05/27/2024 05/28/2024 05/29/2024 diphenhydrAMINE [...] 0147 (Not Given - Pr ovider: Tatiana Rodriguze RN - Reason: IV Infusing) heparin lock [...] lumen documented in this encounter Care Teams Roller Skates Assembler Relationship Specialty Start Date End Date No Ref-Primary, Physician PCP - General 03/15/24 06/17/24 Mor Ramsey Medical Student 04/03/24 Case Samuel MD [address] [place] [address], [address] [place] [address] Assigned Pediatric Specialist Provider 05/18/24 Juhi Benson, RN Specialty Flake Or Shred Roll Operator Hematology & Oncology 05/29/24 documented as of this encounter
--- OUTSIDE RECORDS SUMMARY | 2024-06-25 14:31 | XMS_ITS | Encounter Summary ---
Author Organization [place] Address [facility] [place] [address] Care Team Providers Care Sales Operations Director Name Role Phone No Ref-Primary, Physician Primary Care Provider Mor Ramsey Unavailable Unavailable Case Samuel MD Unavailable [phone] Juhi Benson RN Unavailable Unavailable Reason for Referral * Mental Health Outpatient (Urgent: 3-5 Days) - Pending Review Specialty Diagnoses / Procedures Referred By Contac t Referred To Contact Behavioral Health Diagnoses Severe episode of recurrent major depressive disorder, without psychotic features (H) Case Samuel MD [address] [place] [address] Phone: tel: fax: Referral ID Status Reason Start Date Expiration Date V isits Requested Visits Authorized [id number] Pending Review 05/29/2024 05/29/2025 1 1 Question Answer Services: Assess/Evaluate for appropriate service (non-medication assessment) My Clinical Question Is: History of chronic pain with depression as major component combined with sickle cell disease and difficulty adjusting to [place]. Requesting evaluation for mental health diagnosis and management. Patient Scheduling Instructions: [facility] will call you to coordinate your care as prescribed by your provider. If you don't hear from a sales representative marine supplies within 2 business days, please call . [...] plan with any benefit or coverage questions. [facility] will call you to coordinate your care as prescribed by your provider. If you don't hear from a sales representative marine supplies within 2 business days, please call . M PLANT CONTROL ROOM OPERATOR Reason for Visit * Reason Comments Port Draw Labs drawn via port by RN in lab, vitals taken. Oncology Clinic Visit [facility]N Sickle cell Encounter Details Date Type Department Care Team (Late st Contact Info) Description 05/29/2024 11:30 AM STEAM PLANT CONTROL ROOM OPERATOR Oncology Visit [facility] [address] [place] [address] Case Samuel MD [address] [place] [address] [address], [address] [place], [place] [id number] Severe episode of recurrent major depressive disorder, [...] file Legal Sex Female 8:25 AM STEAM PLANT CONTROL ROOM OPERATOR Gender Identity Not on file Sexual Orientation Not on file documented as of this encounter Last Filed Vital Signs Vital Sign Reading Time Taken Comments Blood Pressure 98/67 05/29/2024 11:09 AM STEAM PLANT CONTROL ROOM OPERATOR Pulse 106 05/29/2024 11:09 AM STEAM PLANT CONTROL ROOM OPERATOR Temperature 37.1 C (98.7 F) 05/29/2024 11:09 AM STEAM PLANT CONTROL ROOM OPERATOR Respiratory Rate 18 05/29/2024 11:09 AM STEAM PLANT CONTROL ROOM OPERATOR Oxygen Saturation 96% 05/29/2024 11:09 AM STEAM PLANT CONTROL ROOM OPERATOR Inhaled Oxygen Concentration - - Weight 54.6 kg (120 lb 6.4 oz) 05/29/2024 11:09 AM STEAM PLANT CONTROL ROOM OPERATOR Height - - Body Mass Index 22.75 05/29/2024 12:01 AM STEAM PLANT CONTROL ROOM OPERATOR documented in this encounter Progress Notes [...] it has been hard to transition to [place], especially in winter with a toddler. She [...] She said that she was born in [place] but moved throughout her childhood because her dad was in the . She is the youngest of 9 children she said, though she is the only one with sickle cell disease. Among other places, she was living in [place] for a time and then moved to [place]. It was there that shemet her boyfriend. She ultimately moved back to [place] and he came with her. It was there that they had a daughter Chanda, now 2 years old. That was a difficult for her, and she feelslike she never wants to be again. She was living in [place], [place] and receiving care at [facility], though she did not get the sense that printing specialist there was super comfortable with sickle [...] about 3 weeks ago. She moved to [place] about 2 months ago. Her boyfriend is [...] worked up for symptomatic gallstones back in [place], but there were some delays in getting a cholecystectomy and by the time it was getting scheduled, they were moving to [place]. She reports that she has had a [...] them both so she can be a [id number]-[id number] mom. Sickle Cell Disease Comprehensive Checklist Stroke/silent [...] titrate as needed and notify the primary printing specialist via [employer] message if changes to the plan below are needed. Also please note that there is a mental health component to her pain, particularly in terms of adjustment to [place] which is likely to make her pain worse.. 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 She is 1 of 9 [...] Social Connections: Socially Integrated (03/28/2024) [facility] Social [facility]ctions [...] Rate 86 BPM Atrial Rate 86 BPM WA Interval 154 ms QRS Duration 78 ms QT 370 ms QTc 442 ms P [place] 18 degrees R AXIS 55 degrees T [place] 25 degrees Interpretation ECG Sinus rhythm Nonspecific T wave abnormality Abnormal ECG When compared with ECG of 14-May-2024 22:12, Nonspecific T wave abnormality now evident in Inferior leads Confirmed by SEE ED PROVIDER NOTE FOR, ECG INTERPRETATION (4000), mapping editor Neeraj Allison ([id number]) on 05/20/2024 7:48:17 AM Basic metabolic panel [...] Absolute NRBCs 0.2 10e3/uL Extra Green Top ([place] Heparin) Tube Collection Time: 05/20/24 9:09 AM Result Value Ref Range Hold Specimen [facility] Basic metabolic panel Collection Time: 05/20/24 [...] Rate 103 BPM Atrial Rate 103 BPM WA Interval 124 ms QRS Duration 80 ms QT 316 ms QTc 413 ms P [place] 82 degrees R AXIS 90 degrees T [place] 70 degrees Interpretation ECG Sinus tachycardia Rightward axis Borderline ECG When compared with ECG of 20-May-2024 07:36, Nonspecific T wave abnormality no longer evident in Anterior leads Confirmed by SEE ED PROVIDER NOTE FOR, ECG INTERPRETATION (4000), mapping editor Leticia Warner ([id number]) on 05/22/2024 4:13:58 PM Basic metabolic panel [...] None Seen Elliptocytes Slight (A) None Seen Ziegler-Enemy Swim Bodies Present (A) None Seen Polychromasia Slight (A) None Seen RBC Fragments Slight (A) None Seen Sickle Cells Moderate (A) None Seen Target Cells Slight (A) None Seen ECG 12-LEAD WITH MUSE (LHE) Collection Time: 05/23/24 6:54 PM Result Value Ref Range Systolic Blood Pressure mmHg Diastolic Blood Pressure mmHg Ventricular Rate 77 BPM Atrial Rate 77 BPM WA Interval 160 ms QRS Duration 82 ms QT 362 ms QTc 409 ms P [place] 61 degrees R AXIS 92 degrees T [place] 49 degrees Interpretation ECG Sinus rhythm Rightward axis Borderline ECG When compared with ECG of 22-May-2024 15:14, Nonspecific T wave abnormality no longer evident in Inferior leads Confirmed by SEE ED PROVIDER NOTE FOR, ECG INTERPRETATION (4000), mapping editor SELMA GARRISON ([id number]) on 05/23/2024 7:30:33 PM CBC (+ platelets, [...] Rate 91 BPM Atrial Rate 91 BPM WA Interval 142 ms QRS Duration 80 ms QT 352 ms QTc 432 ms P [place] 39 degrees R AXIS 62 degrees T [place] 23 degrees Interpretation ECG Sinus rhythm Nonspecific T wave abnormality Abnormal ECG When compared with ECG of 23-May-2024 18:54, Nonspecific T wave abnormality now evident in Inferior leads Nonspecific T wave abnormality now evident in Anterior leads Confirmed by SEE ED PROVIDER NOTE FOR, ECG INTERPRETATION (4000), mapping editor BEN PRAKASH ([id number]) on 05/27/2024 12:22:37 PM Comprehensive metabolic panel [...] female who recently started receiving care at [facility] for sickle cell disease, HbSS (Apr 2024). She has several comorbidities related to sickle cell disease, including Chronic pain, AVN of the left hip, history of pulmonary embolism, history of transfusions with iron overload, history of stroke(details unclear), right eye retinopathy, acute on chronic anemia, gallstones, and a history of acute chest syndrome. She has been a regular visitor to the [facility] emergency department as well, and [...] just the SCD. Her adjustment to the [facility] has been challenging, particularly at this time of year and being at home with their daughter Today, we focused on the mental health, including both psychological and psychiatric care. In my discussions with the emergency department colleagues at [facility], I stressed that a sustainable [...] think outside the box. - Mental health gasateria attendant referral placed HbSS Disease with several complications [...] around the hip and femur strong. -Orthopedic gasateria attendant referral placed. Will defer to them for [...] per the note Case Samuel MD Classical [facility] Division of Hematology, Oncology, and Transplantation [facility] [place] The longitudinal plan of care for the diagnosis(es)/condition(s) as documented were addressed during this visit. Due to the added complexity in care, I will continue to support Gianna in the subsequent management and with ongoing continuity of care. M PLANT CONTROL ROOM OPERATOR documented in this encounter Nursing Notes [...] checked into next appt. Jenifer Sheffield RN M PLANT CONTROL ROOM OPERATOR * Laura Rg - 05/29/2024 11:30 AM [...] not needed today. Pharmacy name entered into Way[facility]: [facility] [address] [place], [place] - [phone] [facility] - [place], [place] - [address] [place] [address] Frailty Screening: Is the patient here for a new oncology consult visit in cancer care? 2. No Clinical concerns:Provider came in during rooming. Laura Rg M PLANT CONTROL ROOM OPERATOR documented in this encounter Plan of Treatment Scheduled Referrals Name Type Priority Associated Diagnoses Orde r Schedule Adult Mental Health Immigration Lawyer Referral Referral Urgent: 3-5 Days Severe episode of recurrent major depressive disorder, without psychotic features (H) Expected: 05/29/2024 (Approximate), Expires: 05/29/2025 documented as of this encounter Goals Goal Patient Goal Type Associated Problems Recent Progress Patient-Stated? Author Pain Management General On track( 025 12:40 PM STEAM PLANT CONTROL ROOM OPERATOR) Yes Juhi Benson, SOFIA Note: Goal [...] AND PLATELET MORPHOLOGY Routine 05/29/2024 11:23 AM STEAM PLANT CONTROL ROOM OPERATOR CBC WITH PLATELETS AND DIFFERENTIAL Routine 05/29/2024 11:23 AM STEAM PLANT CONTROL ROOM OPERATOR TYPE AND SCREEN, ADULT Add-On 11:23 AM STEAM PLANT CONTROL ROOM OPERATOR History of transfusion BILL ONLY- CAPILLARY ELECTROPHORESIS Routine 05/29/2024 11:23 AM STEAM PLANT CONTROL ROOM OPERATOR BILL ONLY- SICKLE SOLUBILITY BILL Routine 05/29/2024 11:23 AM STEAM PLANT CONTROL ROOM OPERATOR ROUTINE UA WITH MICROSCOPIC REFLEX TO CULTURE Routine 05/29/2024 11:23 AM STEAM PLANT CONTROL ROOM OPERATOR CBC WITH PLATELETS & DIFFERENTIAL Routine 05/29/2024 11:23 AM STEAM PLANT CONTROL ROOM OPERATOR GENOTYPE RED BLOOD CELL Routine 05/29/19 11:23 AM STEAM PLANT CONTROL ROOM OPERATOR History of transfusion RETICULOCYTE COUNT Routine 05/29/2024 11 :23 AM STEAM PLANT CONTROL ROOM OPERATOR HEMOGLOBIN EVAL REFLEX TO ELP OR RBC SOLUBILITY Routine 05/29/2024 11:23 AM STEAM PLANT CONTROL ROOM OPERATOR FERRITIN Routine 05/29/2024 11:23 AM STEAM PLANT CONTROL ROOM OPERATOR COMPREHENSIVE METABOLIC PANEL Routine 05/29/2024 11:23 AM STEAM PLANT CONTROL ROOM OPERATOR ABO/RH TYPE AND SCREEN Routine 11:23 AM STEAM PLANT CONTROL ROOM OPERATOR History of transfusion URINE CULTURE Routine 05/29/2024 11:23 AM STEAM PLANT CONTROL ROOM OPERATOR documented in this encounter Results * HGB Eval Reflex to ELP or RBC Solubility (05/29/2024 11:23 AM STEAM PLANT CONTROL ROOM OPERATOR) Alpha Globin (HBA1 and HBA2) DD Bill Billed 05/31/2024 2:46 PM STEAM PLANT CONTROL ROOM OPERATOR [facility] Comment: Performed By: [facility] [address] [place] [id number] Metal Treater: Devon Healy MD, PhD CLIA Number: [id number] Blood VENOUS LINE / Unknown IVAD (Port) / Unknown 05/29/2024 11:23 AM STEAM PLANT CONTROL ROOM OPERATOR 05/29/2024 11:30 AM STEAM PLANT CONTROL ROOM OPERATOR us Case Samuel MD LAB CHARGE PERFORMABLES F inal Result [facility] [address] [place] [id number], [facility] [phone] * Bill Only- Sickle Solubility Bill (05/29/2024 11:23 AM STEAM PLANT CONTROL ROOM OPERATOR) Sickle Solubility Reflex Bill Billed 05/31/2024 2:46 PM STEAM PLANT CONTROL ROOM OPERATOR [facility] Comment: Performed By: [facility] [address] [place] [address] Metal Treater: Devon Healy MD, PhD CLIA Number: [id number] Blood VENOUS LINE / Unknown IVAD (Port) / Unknown 05/29/2024 11:23 AM STEAM PLANT CONTROL ROOM OPERATOR 05/29/2024 11:30 AM STEAM PLANT CONTROL ROOM OPERATOR Case Samuel MD LAB CHARGE PERFORMABLES F inal Result Performing Organization Address City/[facility]/ZIP Co de Phone Number [facility] [address] [place] [address], [facility] [phone] * Adult Type and Screen (05/29/2024 11:23 AM STEAM PLANT CONTROL ROOM OPERATOR) ABO/RH(D) A POS 05/28/2024 6:00 PM STEAM PLANT CONTROL ROOM OPERATOR [facility] Antibody Screen Negative Negative 05/28/2024 6:00 PM STEAM PLANT CONTROL ROOM OPERATOR [facility] SPECIMEN EXPIRATION DATE [id number] 05/28/2024 6:00 PM STEAM PLANT CONTROL ROOM OPERATOR [facility] Blood VENOUS LINE / Unknown IVAD (Port) / Unknown 05/29/2024 11:23 AM STEAM PLANT CONTROL ROOM OPERATOR 05/29/2024 11:29 AM STEAM PLANT CONTROL ROOM OPERATOR Case Samuel MD LAB - BLOOD BANK TEST ORD ER Final Result Performing Organization Address City/[facility]/ZIP Co de Phone Number [facility] [address] [place] [address] * Urine Culture (05/29/2024 11:23 AM STEAM PLANT CONTROL ROOM OPERATOR) Culture <10,000 CFU/mL Mixture of Urogenital Vickie 05/30/2024 9:45 AM STEAM PLANT CONTROL ROOM OPERATOR [facility] Urine URINE SPECIMEN OBTAINED BY CLEAN CATCH PROCEDURE / Unknown Non-blood Collection / Unknown 05/29/2024 11:23 AM STEAM PLANT CONTROL ROOM OPERATOR 05/29/2024 11:41 AM STEAM PLANT CONTROL ROOM OPERATOR Case Samuel MD LAB - MICRO GENERAL ORDER SYD Final Result [facility] Inf. Diseases Diag. Lab [address] [facility], [address] [place] [address] * (ABNORMAL) RBC and Platelet Morphology (05/29/2024 11:23 AM STEAM PLANT CONTROL ROOM OPERATOR) RBC Morphology Confirmed RBC Indices 05/29/2024 12:33 PM STEAM PLANT CONTROL ROOM OPERATOR [facility] - CORE LAB Platelet Assessment Automated Count Confirmed. Platelet morphology is normal. Automated Count Confirmed. Platelet morphology is normal. 05/29/2024 12:33 PM STEAM PLANT CONTROL ROOM OPERATOR [facility] - CORE LAB Polychromasia Moderate(A) None Seen 05/29/2024 12:33 PM STEAM PLANT CONTROL ROOM OPERATOR [facility] - CORE LAB Sickle Cells Moderate(A) None Seen 05/29/2024 12:33 PM STEAM PLANT CONTROL ROOM OPERATOR [facility] - CORE LAB Target Cells Slight(A) None Seen 05/29/2024 12:33 PM STEAM PLANT CONTROL ROOM OPERATOR [facility] - CORE LAB Teardrop Cells Slight(A) None Seen 05/29/2024 12:33 PM STEAM PLANT CONTROL ROOM OPERATOR [facility] - CORE LAB Blood VENOUS LINE / Unknown IVAD (Port) / Unknown 05/29/2024 11:23 AM STEAM PLANT CONTROL ROOM OPERATOR 05/29/2024 11:29 AM STEAM PLANT CONTROL ROOM OPERATOR Case Samuel MD LAB - BLOOD ORDERABLES Fi nal Result [facility] - CORE LAB [facility] [place] [address] [place] [address] 1st [place] [address] * (ABNORMAL) CBC with platelets and differential (05/29/2024 11:23 AM STEAM PLANT CONTROL ROOM OPERATOR) WBC Count 15.8(H) 4.0 - 11.0 10e3/uL 05/29/2024 12:37 PM STEAM PLANT CONTROL ROOM OPERATOR [facility] - CORE LAB RBC Count 2.11(L) 3.80 - 5.20 10e6/uL 05/29/2024 12:37 PM STEAM PLANT CONTROL ROOM OPERATOR [facility] - CORE LAB Hemoglobin 6.7(LL) 11.7 - 15.7 g/dL 05/29/2024 12:37 PM STEAM PLANT CONTROL ROOM OPERATOR [facility] - CORE LAB Hematocrit 19.2(L) 35.0 - 47.0 % 05/29/2024 12:37 PM [facility] - CORE LAB MCV 91 78 - 100 fL 05/29/2024 12:37 PM [facility] - CORE LAB MCH 31.8 26.5 - 33.0 pg 05/29/2024 12:37 PM [facility] - CORE LAB MCHC 34.9 31.5 - 36.5 g/dL 05/29/2024 12:37 PM [facility] - C[facility] RDW 23.1(H) 10.0 - 15.0 % 05/29/2024 12:37 PM [facility] - [facility] Platelet Count 417 150 - 450 10e3/uL 05/29/2024 12:37 PM [facility] % Neutrophils 56 % 05/29/2024 12:37 PM [facility] % Lymphocytes 25 % 05/29/2024 12:37 PM [facility] % Monocytes 15 % 05/29/2024 12:37 PM [facility] % Eosinophils 2 % 05/29/2024 12:37 PM [facility] % Basophils 1 % 05/29/2024 12:37 PM [facility] - CORE LAB % Immature Granulocytes 1 % 05/29/2024 12:37 PM [facility] NRBCs per 100 WBC 2(H) <1 /100 025 12:37 PM [facility] Absolute Neutrophils 8.8(H) 1.6 - 8.3 10e3/uL 05/29/2024 12:37 PM [facility] Absolute Lymphocytes 4.0 0.8 - 5.3 10e3/uL 05/29/2024 12:37 PM [facility] Absolute Monocytes 2.4(H) 0.0 - 1.3 10e3/uL 05/29/2024 12:37 PM [facility] Absolute Eosinophils 0.3 0.0 - 0.7 10e3/uL 05/29/2024 12:37 PM [facility] Absolute Basophils 0.2 0.0 - 0.2 10e3/uL 05/29/2024 12:37 PM [facility] Absolute Immature Granulocytes 0.2 <=0.4 10e3/uL 05/29/2024 12:37 PM STEAM PLANT CONTROL ROOM OPERATOR [facility] - [facility] Absolute NRBCs 0.2 10e3/uL 05/29/2024 12:37 PM STEAM PLANT CONTROL ROOM OPERATOR [facility] Blood VENOUS LINE / Unknown IVAD (Port) / Unknown 05/29/2024 11:23 AM STEAM PLANT CONTROL ROOM OPERATOR 05/29/2024 11:29 AM STEAM PLANT CONTROL ROOM OPERATOR Case Samuel MD LAB - BLOOD ORDERABLES Fi nal Result [facility] - CORE LAB [facility] Clinics and Surgery [facility] [address] [facility] 1st [place] [address] * Genotype Red Blood Cell (05/29/2024 11:23 AM STEAM PLANT CONTROL ROOM OPERATOR) Pathologist [facility] See Scanned Result GENOTYPE RED BLOOD CELL-Scanned 05/31/2024 10:16 AM STEAM PLANT CONTROL ROOM OPERATOR [facility] Blood VENOUS LINE / Unknown IVAD (Port) / Unknown 05/29/2024 11:23 AM STEAM PLANT CONTROL ROOM OPERATOR 05/29/2024 11:29 AM STEAM PLANT CONTROL ROOM OPERATOR us Case Samuel MD LAB - BLOOD ORDERABLES Fi nal Result [facility] [address] [place] [address], [facility] [phone] * (ABNORMAL) HGB Eval Reflex to ELP or RBC Solubility (05/29/2024 11:23 AM STEAM PLANT CONTROL ROOM OPERATOR) Hemoglobin A 15.0(L) 95.0 - 97.9 % 05/31/2024 2:46 PM STEAM PLANT CONTROL ROOM OPERATOR [facility] Hemoglobin A2 3.0 2.0 - 3.5 % 05/31/2024 2:46 PM STEAM PLANT CONTROL ROOM OPERATOR [facility] Hemoglobin F 10.8(H) 0.0 - 2.1 % 05/31/2024 2:46 PM STEAM PLANT CONTROL ROOM OPERATOR [facility] Hemoglobin S 71.2(H) 0.0 - 0.0 % 05/31/2024 2:46 PM STEAM PLANT CONTROL ROOM OPERATOR [facility] Hemoglobin C 0.0 0.0 - 0.0 % 05/31/2024 2:46 PM STEAM PLANT CONTROL ROOM OPERATOR [facility] Hemoglobin E 0.0 0.0 - 0.0 % 05/31/2024 2:46 PM STEAM PLANT CONTROL ROOM OPERATOR [facility] Hemoglobin - Other 0.0 0.0 - 0.0 % 05/31/2024 2:46 PM STEAM PLANT CONTROL ROOM OPERATOR [facility] Hemoglobin Evaluation See Note 05/31/2024 2:46 PM STEAM PLANT CONTROL ROOM OPERATOR [facility] Comment: Impression: Hb S [...] Globin (HBA1 and HBA2) Deletion/Duplication ([facility] test #2602305) should be considered. Hb S/beta-plus thalassemia is typically characterized by more Hb S than Hb A with the presence of microcytosis. If microcytosis is present and Hb S/beta-plus thalassemia is suspected, Beta Globin (HBB) Sequencing ([facility] test #0210931) is suggested. Hemoglobin analysis should be offered [...] developed and its performance characteristics determined by [facility]. It has not been cleared or approved by the U.S. Food and Drug Administration. This test was performed in a CLIA-certified laboratory and is intended for clinical purposes. Sickle Cell Solubility Reflex Positive(A) 05/31/2024 2:46 PM STEAM PLANT CONTROL ROOM OPERATOR [facility] Comment: INTERPRETIVE INFORMATION: Sickle Cell Solubility Reflex Not Performed: Solubility testing for Hemoglobin S not indicated. 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 Additional charges apply. Conf Previous: Positive for Hemoglobin S by HPLC. Solubility testing performed previously and not repeated with this submission. Hgb Capillary Electrophoresis Reflex Performed 05/31/2024 2:46 PM STEAM PLANT CONTROL ROOM OPERATOR [facility] Comment: INTERPRETIVE INFORMATION: Hgb Capillary Electrophoresis Reflex Not Performed: Confirmation by Capillary Electrophoresis not indicated. Performed: Results confirmed by Capillary Electrophoresis. Additional charges apply. Conf Previous: Capillary Electrophoresis confirmation performed as part of a previous submission. Confirmation not repeated with this submission. Performed By: [facility] [address] [place] [id number] Metal Treater: Devon Healy MD, PhD CLIA Number: [id number] Blood VENOUS LINE / Unknown IVAD (Port) / Unknown 05/29/2024 11:23 AM STEAM PLANT CONTROL ROOM OPERATOR 05/29/2024 11:30 AM STEAM PLANT CONTROL ROOM OPERATOR Case Samuel MD LAB - BLOOD ORDERABLES Fi nal Result Performing Organization Address City/[facility]/ZIP Co de Phone Number [facility] [address] [place] [phone] [phone] * (ABNORMAL) Ferritin (05/29/2024 11:23 AM STEAM PLANT CONTROL ROOM OPERATOR) Pathologist [facility] Ferritin 1,559(H) 6 - 175 ng/mL 05/29/2024 12:43 PM STEAM PLANT CONTROL ROOM OPERATOR [facility] - CORE LAB Blood VENOUS LINE / Unknown IVAD (Port) / Unknown 05/29/2024 11:23 AM STEAM PLANT CONTROL ROOM OPERATOR 05/29/2024 11:29 AM STEAM PLANT CONTROL ROOM OPERATOR Case Samuel MD LAB - BLOOD ORDERABLES Fi nal Result [facility] - [facility] [address] 1st [place] [address] * (ABNORMAL) Routine UA with micro reflex to culture (05/29/2024 11:23 AM STEAM PLANT CONTROL ROOM OPERATOR) Color Urine Yellow Colorless, Straw, Light Yellow, Yellow 05/29/2024 11:41 AM STEAM PLANT CONTROL ROOM OPERATOR [facility] Appearance Urine Slightly Cloudy(A) Clear 05/29/2024 11:41 AM [facility] - CORE LAB Glucose Urine Negative Negative mg/dL 05/29/2024 11:41 AM [facility] [facility] Bilirubin Urine Negative Negative 11:41 AM [facility] Ketones Urine Negative Negative mg/dL 05/29/2024 11:41 AM [facility] Specific Gwinner Urine 1.013 1.003 - 1.035 05/29/2024 11:41 AM [facility] Blood Urine Negative Negative 05/29/2024 11:41 AM [facility] pH Urine 7.0 5.0 - 7.0 05/29/2024 11:41 AM [facility] Protein Albumin Urine Negative Negative mg/dL 05/29/2024 11:41 AM [facility] Urobilinogen Urine Normal Normal, 2.0 mg/dL 05/29/2024 11:41 AM [facility] Nitrite Urine Negative Negative 05/29/2024 11:41 AM [facility] Leukocyte Esterase Urine Moderate(A) Negative 05/29/2024 11:41 AM STEAM PLANT CONTROL ROOM OPERATOR [facility] Mucus Urine Present(A) None Seen /LPF 05/29/2024 11:41 AM [facility] RBC Urine 6(H) <=2 /HPF 05/29/2024 11:41 AM [facility] WBC Urine 3 <=5 /HPF 05/29/2024 11:41 AM [facility] Squamous Epithelials Urine 18(H) <=1 /HPF 05/29/2024 11:41 AM [facility] Urine URINE SPECIMEN OBTAINED BY CLEAN CATCH PROCEDURE / Unknown Non-blood Collection / Unknown 05/29/2024 11:23 AM STEAM PLANT CONTROL ROOM OPERATOR 05/29/2024 11:29 AM STEAM PLANT CONTROL ROOM OPERATOR Narrative [facility] - 05/29/2024 11:41 AM STEAM PLANT CONTROL ROOM OPERATOR Urine Culture ordered based on laboratory criteria us Case Samuel MD LAB - URINE ORDERABLES Fi nal Result [facility] [address] 1[address] [place] [address] * (ABNORMAL) Comprehensive metabolic panel (05/29/2024 11:23 AM [facility]) Sodium 139 135 - 145 mmol/L 05/29/2024 11:58 AM [facility] Potassium 4.2 3.4 - 5.3 mmol/L 05/29/2024 11:58 AM [facility] Carbon Dioxide (CO2) 24 22 - 29 mmol/L 05/29/2024 11:58 AM [facility] Anion Gap 10 7 - 15 mmol/L 05/29/2024 11:58 AM [facility] Urea Nitrogen 9.2 6.0 - 20.0 mg/dL 05/29/2024 11:58 AM [facility] Creatinine 0.75 0.51 - 0.95 mg/dL 05/29/2024 11:58 AM [facility] GFR Estimate >90 >60 mL/min/1.7 3m2 05/29/2024 11:58 AM [facility] Comment:eGFR calculated usin g 2020 CKD-EPI equation. Calcium 8.9 8.8 - 10.4 mg/dL 05/29/2024 11:58 AM [facility] Chloride 105 98 - 107 mmol/L 05/29/2024 11:58 AM [facility] Glucose 109(H) 70 - 99 mg/dL 05/29/2024 11:58 AM [facility] Alkaline Phosphatase 83 40 - 150 U/L 05/29/2024 11:58 AM [facility] AST 49(H) 0 - 45 U/L 05/29/2024 11:58 AM [facility] ALT 21 0 - 50 U/L 05/29/2024 11:58 AM [facility] Protein Total 7.3 6.4 - 8.3 g/dL 05/29/2024 11:58 AM [facility] Albumin 4.1 3.5 - 5.2 g/dL 05/29/2024 11:58 AM [facility] Bilirubin Total 2.2(H) <=1.2 mg/dL 05/29/2024 11:58 AM STEAM PLANT CONTROL ROOM OPERATOR [facility] Blood VENOUS LINE / Unknown IVAD (Port) / Unknown 05/29/2024 11:23 AM STE[employer] PLANT CONTROL ROOM OPERATOR 05/29/2024 11:29 AM STEAM PLANT CONTROL ROOM OPERATOR Case Samuel MD LAB - BLOOD ORDERABLES Fi nal Result Performing Organization Address [facility] de Phone Number [facility] - [address] [place] [address] * (ABNORMAL) Reticulocyte count (05/29/2024 11:23 AM STE[employer] PL[employer] CONTROL ROOM OPERATOR) [facility] % Reticulocyte 29.8(H) 0.5 - 2.0 % 05/29/2024 12:00 PM STEAM PLANT CONTROL ROOM OPERATOR [facility] Absolute Reticulocyte 0.631(H) 0.025 - 0.095 10e6/uL 05/29/2024 12:00 PM STEAM PLANT CONTROL ROOM OPERATOR [facility] Blood VENOUS LINE / Unknown IVAD (Port) / Unknown 05/29/2024 11:23 AM STEAM PLANT CONTROL ROOM OPERATOR 05/29/2024 11:29 AM STEAM PLANT CONTROL ROOM OPERATOR Case Samuel MD LAB - BLOOD ORDERABLES Fi nal Result Performing Organization Address [facility] de Phone Number [facility] [address] [place] [address] documented in this encounter Visit Diagnoses Diagnosis [...] Wed05/29/24 at 1130 $Given 05/29/2024 11:29 AM STEAM PLANT CONTROL ROOM OPERATOR 5 mLs sodium chloride (PF) 0.9% PF flush 20 mL 20 mL, Intravenous, ONCE, On 05/29/24 at 1130, For 1 dose $Given 05/29/2024 11:30 AM [employer] PLANT CONTR[employer] ROOM OPERATOR 20 mLs documented in this encounter Care Teams Sales Operations Director Relationship Specialty Start Date End Date No Ref-Primary, Physician PCP - General 03/15/24 06/17/24 Mor Ramsey Medical Student 04/03/24 Case Samuel MD [address] [place] [address] [address] [place] [address] Assigned Pediatric Specialist Provider 05/18/24 Juhi Benson, RN Specialty Photoresist Contact Printer Hematology & Oncology 05/29/24 documented as of this encounter
--- OUTSIDE RECORDS SUMMARY | 2024-06-25 14:31 | XMS_ITS | Encounter Summary ---
Author Organization [place] Address [address] [place] [address]. [place] [address] Care Team Providers Care Carpet Yarn Winder Operator Name Role Phone No Ref-Primary, Physician Primary Care Provider Mor Ramsey Unavailable Unavailable Case Samuel MD Unavailable [phone] Juhi Benson RN Unavailable Unavailable Encounter Details [...] on file Legal Sex Female 8:25 AM OPTOMETRIC TECHNOLOGIST Gender Identity Not on file Sexual Orientation Not on file documented as of this encounter Plan of Treatment Not on file documented as of this encounter Goals Goal Patient Goal Type Associated Problems Recent Progress Patient-Stated? Author Pain Management General On track( 025 12:40 PM OPTOMETRIC TECHNOLOGIST) Yes Juhi Benson RN Note: Goal Statement: [...] on filedocumented in this encounter Care Teams Carpet Yarn Winder Operator Relationship Specialty Start Date End Date No Ref-Primary, Physician PCP - General 03/15/24 06/17/24 Mor Ramsey Medical Student 04/03/24 Case Samuel MD [address] [place] [address] [address], [address] [place] [address] Assigned Pediatric Specialist Provider 05/18/24 Juhi Benson RN Specialty Medical Economics Consultant Hematology & Oncology 05/29/24 documented as of this encounter
--- OUTSIDE RECORDS SUMMARY | 2024-06-25 14:31 | XMS_ITS | Encounter Summary ---
Author Organization [place] Address [address] [place] [address]. [place] [address] Care Team Providers Care Powerhouse Oiler Name Role Phone No Ref-Primary, Physician Primary Care Provider Mor Ramsey Unavailable Unavailable Case Samuel MD Unavailable [phone] Juhi Benson RN Unavailable Unavailable Encounter Details [...] on file Legal Sex Female 8:25 AM STORE CASHIER Gender Identity Not on file Sexual Orientation Not on file documented as of this encounter Plan of Treatment Not on file documented as of this encounter Goals Goal Patient Goal Type Associated Problems Recent Progress Patient-Stated? Author Pain Management General On track( 025 12:40 PM STORE CASHIER) Yes Juhi Benson RN Note: Goal Statement: [...] on filedocumented in this encounter Care Teams Powerhouse Oiler Relationship Specialty Start Date End Date No Ref-Primary, Physician PCP - General 03/15/24 06/17/24 Mor Ramsey Medical Student 04/03/24 Case Samuel MD [address] [place] [address] [address], [address] [place] [address] Assigned Pediatric Specialist Provider 05/18/24 Juhi Benson RN Specialty Chief Learning Officer Hematology & Oncology 05/29/24 documented as of this encounter
--- OUTSIDE RECORDS SUMMARY | 2024-06-25 14:31 | XMS_ITS | Encounter Summary ---
Author Organization [place] Address [address] [place] [address]. [place] [address] Care Team Providers Care Senior Salesforce Developer Name Role Phone No Ref-Primary, Physician Primary Care Provider Mor Ramsey Unavailable Unavailable Case Samuel MD Unavailable [phone] Juhi Benson RN Unavailable Unavailable Encounter Details [...] on file Legal Sex Female 8:25 AM CARD GAME OPERATOR Gender Identity Not on file Sexual Orientation Not on file documented as of this encounter Plan of Treatment Not on file documented as of this encounter Goals Goal Patient Goal Type Associated Problems Recent Progress Patient-Stated? Author Pain Management General On track( 025 12:40 PM CARD GAME OPERATOR) Yes Juhi Benson RN Note: Goal [...] on filedocumented in this encounter Care Teams Senior Salesforce Developer Relationship Specialty Start Date End Date No Ref-Primary, Physician PCP - General 03/15/24 06/17/24 Mor Ramsey Medical Student 04/03/24 Case Samuel MD [address] [place] [address] [address], [address] [place] [address] Assigned Pediatric Specialist Provider 05/18/24 Juhi Benson RN Specialty Township Supervisor Hematology & Oncology 05/29/24 documented as of this encounter
--- OUTSIDE RECORDS SUMMARY | 2024-06-25 14:31 | XMS_ITS | Encounter Summary ---
Author Organization [place] Address [address] [place] [address]. [place] [address] Care Team Providers Care Service Or Work Dispatcher Name Role Phone No Ref-Primary, Physician Primary Care Provider Mor Ramsey Unavailable Unavailable Case Samuel MD Unavailable [phone] Juhi Benson RN Unavailable Unavailable Encounter Details Date Type Department Care Team (Late st Contact Info) Description 05/29/2024 Orders Only [facility] [address] [place] [address] Juhi Benson, SOFIA Sickle cell [...] on file Legal Sex Female 8:25 AM CHIEF CRNA Gender Identity Not on file Sexual Orientation Not on file documented as of this encounter Plan of Treatment Not on file documented as of this encounter Goals Goal Patient Goal Type Associated Problems Recent Progress Patient-Stated? Author Pain Management General On track( 025 12:40 PM CHIEF CRNA) Yes Juhi Benson RN Note: Goal Statement: [...] crisis documented in this encounter Care Teams Service Or Work Dispatcher Relationship Specialty Start Date End Date No Ref-Primary, Physician PCP - General 03/15/24 06/17/24 Mor Ramsey Medical Student 04/03/24 Case Samuel MD [address] [place] [address] [address], [address] [place] [address] Assigned Pediatric Specialist Provider 05/18/24 Juhi Benson, RN Specialty Fitter Machinist Hematology & Oncology 05/29/24 documented as of this encounter
--- OUTSIDE RECORDS SUMMARY | 2024-06-25 14:31 | XMS_ITS | Encounter Summary ---
Author Organization [place] Address [address] [place] [address]. [place] [address] Care Team Providers Care Qa Developer Name Role Phone No Ref-Primary, Physician Primary Care Provider Mor Ramsey Unavailable Unavailable Case Samuel MD Unavailable [phone] Juhi Benson RN Unavailable Unavailable Reason for Visit * Reason Comments Sickle Cell Pain Crisis Encounter Details Date Type Department Care Team (Late st Contact Info) Description 06/01/2024 11:41 PM REGISTRATION REPRESENTATIVE - 06/02/2024 2:35 AM [facility] Emergency [facility] Emergency Room [address] [place] [address] Noel Pinzon MD [address] [place] [address] Sickle cell pain crisis (H) Discharge Disposition: [...] on file Legal Sex Female 8:25 AM REGISTRATION REPRESENTATIVE Gender Identity Not on file Sexual Orientation Not on file documented as of this encounter Last Filed Vital Signs Vital Sign Reading Time Taken Comments Blood Pressure 117/69 06/02/2024 2:15 AM REGISTRATION REPRESENTATIVE Pulse 73 06/02/2024 2:15 AM REGISTRATION REPRESENTATIVE Temperature 36.7 C (98.1 F) 06/01/2024 10:44 PM REGISTRATION REPRESENTATIVE Respiratory Rate 15 06/02/2024 2:00 AM REGISTRATION REPRESENTATIVE Oxygen Saturation 95% 06/02/2024 2:15 AM REGISTRATION REPRESENTATIVE Inhaled Oxygen Concentration - - Weight 54.4 kg (120 lb) 06/01/2024 10:44 PM REGISTRATION REPRESENTATIVE Height - - Body Mass Index 22.67 05/31/2024 9:39 PM REGISTRATION REPRESENTATIVE documented in this encounter Discharge Instructions * Discharge Instructions* Noel Pinzon MD - 06/02/2024 1:57 AM REGISTRATION REPRESENTATIVE Continue outpatient follow up and cares with your specialist. supervisor crack off your prescription for dilaudid tomorrow and take as directed. STRATION REPRESENTATIVE STRATION REPRESENTATIVE documented in this encounter Medications at Time [...] questions were answered. Vitally stable upon discharge. STRATION REPRESENTATIVE STRATION REPRESENTATIVE * Noel Pinzon MD - 06/01/2024 11:07 PM CST Emergency Department Encounter Evaluation Date & Time: No admission date for patient encounter. CHIEF COMPLAINT: Sickle Cell Pain Crisis Triage Note:PT is coming in tonight for a sickle cell crisis. Pt has been waiting for her pharmacy to fill her RX. They stated that pharmacy might have the RX tomorrow. No OTC medication MEDICAL STAFF CREDENTIALING COORDINATOR. ED COURSE & MEDICAL DECISION MAKING: Pt [...] provided by the patient. No speech language pathologist prn was used. Gianna Hernández is a 29 [...] my direction. Noel Pinzon DO Emergency Medicine [facility] 06/01/2024 11:07 PM Noel Pinzon MD 06/02/24 0236 STRATION REPRESENTATIVE * Aminata Farley, SOFIA - 06/01/2024 10:45 PM CST PT is coming in tonight for a sickle cell crisis. Pt has been waiting for her pharmacy to fill her RX. They stated that pharmacy might have the RX tomorrow. No OTC medication MEDICAL STAFF CREDENTIALING COORDINATOR. Triage Assessment (Adult) Row Name 06/01/24 2244 Triage Assessment Airway WDL WDL Respiratory WDL Respiratory WDL WDL Skin Circulation/Temperature WDL Skin Circulation/Temperature WDL WDL Cardiac WDL Cardiac WDL WDL Peripheral/Neurovascular WDL Peripheral Neurovascular WDL WDL Cognitive/Neuro/Behavioral WDL Cognitive/Neuro/Behavioral WDL WDL STRATION REPRESENTATIVE documented in this encounter Plan of Treatment Not on file documented as of this encounter Goals Goal Patient Goal Type Associated Problems Recent Progress Patient-Stated? Author Pain Management General On track( 025 12:40 PM REGISTRATION REPRESENTATIVE) Yes Juhi Benson, RN Note: Goal [...] For 1 dose $Given 06/02/2024 1:17 AM REGISTRATION REPRESENTATIVE 50 mg heparin lock flush 10 unit/mL [...] each port lumen $Given 06/02/2024 2:29 AM REGISTRATION REPRESENTATIVE 5 mLs HYDROmorphone (DILAUDID) injection 2 mg 2 mg, Intravenous, ONCE, On Citlali 06/01/24 at 2330, For 1 dose $Given 06/02/2024 12:07 AM REGISTRATION REPRESENTATIVE 2 mg HYDROmorphone (DILAUDID) injection 2 mg 2 mg, Intravenous, EVERY 1 HOUR PRN, severe pain, Starting on Wed06/01/24 at 2308, For 2 doses $Given 06/02/2024 2:17 AM REGISTRATION REPRESENTATIVE 2 mg $Given 06/02/2024 1:16 AM REGISTRATION REPRESENTATIVE 2 mg lactated ringers BOLUS 1,000 mL Intravenous, 1,000 mL, ONCE, On Citlali 06/01/24 at 2330, For 1 dose $New Bag 06/02/2024 12:06 AM REGISTRATION REPRESENTATIVE 1,000 mLs ondansetron (ZOFRAN) injection 8 mg 8 mg, Intravenous, ONCE, Administer over 2-5 Minutes, On Citlali 06/01/24 at 2330, For 1 dose $Given 06/02/2024 12:06 AM REGISTRATION REPRESENTATIVE 8 mg sodium chloride (PF) 0.9% PF [...] each port lumen. $Given 06/02/2024 12:12 AM REGISTRATION REPRESENTATIVE 20 mLs documented in this encounter Active and Recently Administered Medications Times are shown in REGISTRATION REPRESENTATIVE. Scheduled Medication Order 05/31/2024 06/01/2024 06/02/2024 diphenhydrAMINE [...] lumen documented in this encounter Care Teams Qa Developer Relationship Specialty Start Date End Date No Ref-Primary, Physician PCP - General 03/15/24 06/17/24 Mor Ramsey Medical Student 04/03/24 Case Samuel MD [address] [place] [address] [address], [address] [place] [address] Assigned Pediatric Specialist Provider 05/18/24 Juhi Benson, RN Specialty Music Composer Hematology & Oncology 05/29/24 documented as of this encounter
--- OUTSIDE RECORDS SUMMARY | 2024-06-25 14:32 | XMS_ITS | Encounter Summary ---
Author Organization [place] Address [address] [place] [address]. [place] [address] Care Team Providers Care Washateria Attendant Name Role Phone No Ref-Primary, Physician Primary Care Provider Mor Ramsey Unavailable Unavailable Case Samuel MD Unavailable [phone] Juhi Benson RN Unavailable Unavailable Encounter Details [...] on file Legal Sex Female 8:25 AM DUST BOX WORKER Gender Identity Not on file Sexual Orientation Not on file documented as of this encounter Plan of Treatment Not on file documented as of this encounter Goals Goal Patient Goal Type Associated Problems Recent Progress Patient-Stated? Author Pain Management General On track( 025 12:40 PM DUST BOX WORKER) Yes Juhi Benson RN Note: Goal Statement: [...] on filedocumented in this encounter Care Teams Washateria Attendant Relationship Specialty Start Date End Date No Ref-Primary, Physician PCP - General 03/15/24 06/17/24 Mor Ramsey Medical Student 04/03/24 Case Samuel MD [address] [place] [address] [address], [address] [place] [address] Assigned Pediatric Specialist Provider 05/18/24 uJhi Benson RN Specialty Supervisor Special Services Hematology & Oncology 05/29/24 documented as of this encounter
--- OUTSIDE RECORDS SUMMARY | 2024-06-25 14:32 | XMS_ITS | Encounter Summary ---
Author Organization [facility] Address [address] [place] [address]. [place] [address] Care Team Providers Care Ditching Machine Operator Name Role Phone No Ref-Primary, Physician Primary Care Provider Mor Ramsey Unavailable Unavailable Case Samuel MD Unavailable [phone] Juhi Benson RN Unavailable Unavailable Reason for Visit * Reason Comments Infusion IVF + pain medicatio n Encounter Details Date Type Department Care Team (Late st Contact Info) Description 06/07/2024 1:30 PM HOME ECONOMICS EXTENSION WORKER Infusion Therapy Visit [facility] Advanced Treatment [facility] [address] [place] [address] Case Samuel MD [address] [place] [address] 484, [address] [place], [place] [id number] Fever (Primary Dx); Sickle cell pain crisis [...] on file Legal Sex Female 8:25 AM HOME ECONOMICS EXTENSION WORKER Gender Identity Not on file Sexual Orientation Not on file documented as of this encounter Last Filed Vital Signs Vital Sign Reading Time Taken Comments Blood Pressure 119/76 06/07/2024 3:43 PM HOME ECONOMICS EXTENSION WORKER Pulse 72 06/07/2024 3:43 PM HOME ECONOMICS EXTENSION WORKER Temperature 37 C (98.6 F) 06/07/2024 1:35 PM HOME ECONOMICS EXTENSION WORKER Respiratory Rate 16 06/07/2024 1:35 PM HOME ECONOMICS EXTENSION WORKER Oxygen Saturation 99% 06/07/2024 3:43 PM HOME ECONOMICS EXTENSION WORKER Inhaled Oxygen Concentration - - Weight - - Height - - Body Mass Index - - documented in this encounter Patient Instructions * Patient Instructions* Tyson Hess RN - 06/07/2024 1:30 PM HOME ECONOMICS EXTENSION WORKER Dear Gianna Hernández Thank you for choosing [facility] ([facility]) for your infusion. The following information is a summary of our appointment as well as important reminders. If you have any questions on your upcoming Specialty Infusion appointments, please call scheduling at [phone]. It was a pleasure taking care of you today. Sincerely, [facility] [address] [place] [id number] ECONOMICS EXTENSION WORKER documented in this encounter Progress Notes * Tyson Hess RN - 06/07/2024 1:30 PM CST Infusion Nursing Note: Gianna Hernández presents today for IV infusion; IVF + pain medication. Patient seen by provider today: No Sand Conditioner Machine present during visit today: Not Applicable. Note: [...] all questions answered. AVS to patient via [employer]. Patient will return as needed for next appointment. Patient discharged in stable condition accompanied by: self. Departure Mode: Ambulatory. Tyson Hess RN ECONOMICS EXTENSION WORKER documented in this encounter Plan of Treatment Not on file documented as of this encounter Goals Goal Patient Goal Type Associated Problems Recent Progress Patient-Stated? Author Pain Management General On track( 025 12:40 PM HOME ECONOMICS EXTENSION WORKER) Yes Juhi Benson RN Note: Goal [...] AND PLATELET MORPHOLOGY Routine 06/07/2024 1:15 PM HOME ECONOMICS EXTENSION WORKER Sickle cell pain crisis (H) CBC WITH PLATELETS AND DIFFERENTIAL Routine 06/07/2024 1:15 PM HOME ECONOMICS EXTENSION WORKER Sickle cell pain crisis (H) INFLUENZA A/B, RSV AND SARS-COV2 PCR Routine 06/07/2024 1:15 PM HOME ECONOMICS EXTENSION WORKER Fever CBC WITH PLATELETS & DIFFERENTIAL Routine 06/07/2024 1:15 PM HOME ECONOMICS EXTENSION WORKER Sickle cell pain crisis (H) BASIC METABOLIC PANEL Routine 06/07/2024 1:15 PM HOME ECONOMICS EXTENSION WORKER Sickle cell pain crisis (H) documented in this encounter Results * (ABNORMAL) RBC and Platelet Morphology (06/07/2024 1:15 PM HOME ECONOMICS EXTENSION WORKER) RBC Morphology Confirmed RBC Indices 06/07/2024 2:06 PM HOME ECONOMICS EXTENSION WORKER [facility] Platelet Assessment Automated Count Confirmed. Platelet morphology is normal. Automated Count Confirmed. Platelet morphology is normal. 06/07/2024 2:06 PM HOME ECONOMICS EXTENSION WORKER [facility] [place] Bodies Present(A) None Seen 06/07/2024 2:06 PM HOME ECONOMICS EXTENSION WORKER [facility] Polychromasia Slight(A) None Seen 06/07/2024 2:06 PM HOME ECONOMICS EXTENSION WORKER [facility] Sickle Cells Moderate(A) None Seen 06/07/2024 2:06 PM HOME ECONOMICS EXTENSION WORKER [facility] Target Cells Slight(A) None Seen 06/07/2024 2:06 PM HOME ECONOMICS EXTENSION WORKER [facility] Teardrop Cells Slight(A) None Seen 06/07/2024 2:06 PM HOME ECONOMICS EXTENSION WORKER [facility] Blood BLOOD SPECIMEN / Unknown IVAD (Port) / Unknown 06/07/2024 1:15 PM HOME ECONOMICS EXTENSION WORKER 06/07/2024 1:35 PM HOME ECONOMICS EXTENSION WORKER Case Samuel MD LAB - BLOOD ORDERABLES Fi nal Result [facility] [address] 1st [place] [address] * Influenza A/B, RSV and SARS-CoV2 PCR (COVID-19) Nasopharyngeal (06/07/2024 1:15 PM HOME ECONOMICS EXTENSION WORKER) Influenza A PCR Negative Negative 06/07/2024 3:32 PM HOME ECONOMICS EXTENSION WORKER [facility] Influenza B PCR Negative Negative 06/07/2024 3:32 PM HOME ECONOMICS EXTENSION WORKER [facility] RSV PCR Negative Negative 06/07/2024 3:32 PM HOME ECONOMICS EXTENSION WORKER [facility] SARS CoV2 PCR Negative Negative 06/07/2024 3:32 PM HOME ECONOMICS EXTENSION WORKER [facility] Comment:NEGATIVE: SARS-CoV-2 (COVID-19) RNA not detected, presumed negative. Swab NASOPHARYNGEAL STRUCTURE / Unknown Non-blood Collection / Unknown 06/07/2024 1:15 PM HOME ECONOMICS EXTENSION WORKER 06/07/2024 1:36 PM HOME ECONOMICS EXTENSION WORKER Narrative [facility] - 06/07/2024 3:32 PM HOME ECONOMICS EXTENSION WORKER Testing was performed using the Xpert Xpress CoV2/Flu/RSV Assay on the [employer] GeneXpert Instrument. This test should be ordered [...] management. This test was validated by the [facility]. These laboratories are certified under the Clinical Laboratory Improvement Amendments of 1988 (CLIA-88) as qualified to perfom high complexity laboratory testing. us Case Samuel MD LAB - MICRO GENERAL ORDER SYD Final Result [facility] Inf. Diseases Diag. Lab [address] [facility], [address] [place] [address] * (ABNORMAL) CBC with platelets and differential (06/07/2024 1:15 PM HOME ECONOMICS EXTENSION WORKER) WBC Count 13.7(H) 4.0 - 11.0 10e3/uL 06/07/2024 2:06 PM [facility] RBC Count 2.80(L) 3.80 - 5.20 10e6/uL 06/07/2024 2:06 PM [facility] Hemoglobin 8.8(L) 11.7 - 15.7 g/dL 06/07/2024 2:06 PM [facility] Hematocrit 25.3(L) 35.0 - 47.0 % 06/07/2024 2:06 PM [facility] MCV 90 78 - 100 fL 06/07/2024 2:06 PM [facility] MCH 31.4 26.5 - 33.0 pg 06/07/2024 2:06 PM [facility] MCHC 34.8 31.5 - 36.5 g/dL 06/07/2024 2:06 PM [facility] RDW 19.4(H) 10.0 - 15.0 % 06/07/2024 2:06 PM [facility] Platelet Count 516(H) 150 - 450 10e3/uL 06/07/2024 2:06 PM [facility] % Neutrophils 67 % 06/07/2024 2:06 PM [facility] % Lymphocytes 20 % 06/07/2024 2:06 PM [facility] % Monocytes 11 % 06/07/2024 2:06 PM [facility] % Eosinophils 1 % 06/07/2024 2:06 PM HOME ECONOMICS EXTENSION WORKER [facility] % Basophils 1 % 06/07/2024 2:06 PM HOME ECONOMICS EXTENSION WORKER [facility] % Immature Granulocytes 0 % 06/07/2024 2:06 PM HOME ECONOMICS EXTENSION WORKER [facility] NRBCs per 100 WBC 1(H) <1 /100 025 2:06 PM HOME ECONOMICS EXTENSION WORKER [facility] Absolute Neutrophils 9.2(H) 1.6 - 8.3 10e3/uL 06/07/2024 2:06 PM HOME ECONOMICS EXTENSION WORKER [facility] Absolute Lymphocytes 2.7 0.8 - 5.3 10e3/uL 06/07/2024 2:06 PM HOME ECONOMICS EXTENSION WORKER [facility] Absolute Monocytes 1.5(H) 0.0 - 1.3 10e3/uL 06/07/2024 2:06 PM [facility] Absolute Eosinophils 0.1 0.0 - 0.7 10e3/uL 06/07/2024 2:06 PM HOME ECONOMICS EXTENSION WORKER [facility] Absolute Basophils 0.2 0.0 - 0.2 10e3/uL 06/07/2024 2:06 PM HOME ECONOMICS EXTENSION WORKER [facility] Absolute Immature Granulocytes 0.1 <=0.4 10e3/uL 06/07/2024 2:06 PM HOME ECONOMICS EXTENSION WORKER [facility] Absolute NRBCs 0.1 10e3/uL 06/07/2024 2:06 PM [facility] Blood BLOOD SPECIMEN / Unknown IVAD (Port) / Unknown 06/07/2024 1:15 PM HOME ECONOMICS EXTENSION WORKER 06/07/2024 1:35 PM HOME ECONOMICS EXTENSION WORKER us Case Samuel MD LAB - BLOOD ORDERABLES Fi nal Result [facility] [place] [address] [facility] 1st Floor [place] [address] * (ABNORMAL) Basic metabolic panel (06/07/2024 1:15 PM HOME ECONOMICS EXTENSION WORKER) Pathologist [facility] Sodium 139 135 - 145 mmol/L 06/07/2024 2:11 PM HOME ECONOMICS EXTENSION WORKER [facility] Potassium 4.4 3.4 - 5.3 mmol/L 06/07/2024 2:11 PM [facility] Chloride 109(H) 98 - 107 mmol/L 06/07/2024 2:11 PM [facility] Carbon Dioxide (CO2) 22 22 - 29 mmol/L 06/07/2024 2:11 PM [facility] Anion Gap 8 7 - 15 mmol/L 06/07/2024 2:11 PM [facility] Urea Nitrogen 7.4 6.0 - 20.0 mg/dL 06/07/2024 2:11 PM [facility] Creatinine 0.66 0.51 - 0.95 mg/dL 06/07/2024 2:11 PM [facility] GFR Estimate >90 >60 mL/min/1.7 3m2 06/07/2024 2:11 PM [facility] Comment:eGFR calculated usin 2020 CKD-EPI equation. Calcium 9.3 8.8 - 10.4 mg/dL 06/07/2024 2:11 PM [facility] Glucose 98 70 - 99 mg/dL 06/07/2024 2:11 PM [facility] Blood BLOOD SPECIMEN / Unknown IVAD (Port) / Unknown 06/07/2024 1:15 PM HOME ECONOMICS EXTENSION WORKER 06/07/2024 1:35 PM HOME ECONOMICS EXTENSION WORKER Case Samuel MD LAB - BLOOD ORDERABLES Fi nal Result [facility] [address] 1st [place] [address] documented in this encounter Visit Diagnoses Diagnosis [...] pain crisis (H) $Given 06/07/2024 3:41 PM HOME ECONOMICS EXTENSION WORKER 5 mLs HYDROmorphone (DILAUDID) injection 2 mg 2 mg, Intravenous, EVERY 1 HOUR PRN, severe pain, moderate pain, Starting on Wed06/07/24 at 1309, For 3 dosesIndications:Sickle cell pain crisis (H) $Given 06/07/2024 3:28 PM HOME ECONOMICS EXTENSION WORKER 2 mg $Given 06/07/2024 2:30 PM HOME ECONOMICS EXTENSION WORKER 2 mg $Given 06/07/2024 1:37 PM HOME ECONOMICS EXTENSION WORKER 2 mg lactated ringers BOLUS 1,000 mL Intravenous, 1,000 mL, ONCE, at 500 mL/hr, Administer over 2 Hours, On Wed06/07/24 at 1315, For 1 doseIndications:Sickle cell pain crisis (H) $New Bag 06/07/2024 1:37 PM HOME ECONOMICS EXTENSION WORKER 1,000 mLs 500 mL/hr documented in this encounter Additional Health Concerns Infection Onset Date Last Indicated Resolved Time Rule Out COVID-19 06/07/2024 06/07/2024 06/07/2024 3:32 PM HOME ECONOMICS EXTENSION WORKER documented as of this encounter Care Teams Ditching Machine Operator Relationship Specialty Start Date End Date No Ref-Primary, Physician PCP - General 03/15/24 06/17/24 Mor Ramsey Medical Student 04/03/24 Case Samuel MD [address] [place] [address] 484, [address] [place] [address] Assigned Pediatric Specialist Provider 05/18/24 Juhi Benson, RN Specialty Wire Setter Hematology & Oncology 05/29/24 documented as of this encounter
--- OUTSIDE RECORDS SUMMARY | 2024-06-25 14:32 | XMS_ITS | Encounter Summary ---
Author Organization [facility] Address [address] [place] [address] Care Team Providers Care Insurance Appraiser Name Role Phone No Ref-Primary, Physician Primary Care Provider Mor Ramsey Unavailable Unavailable Case Samuel MD Unavailable [phone] Juhi Benson RN Unavailable Unavailable Reason for Visit * Reason Comments Chest Pain Sickle Cell Pain Crisis Encounter Details Date Type Department Care Team (Late st Contact Info) Description 06/03/2024 3:22 PM METAL FABRICATING SUPERVISOR - 06/03/2024 5:30 PM METAL FABRICATING SUPERVISOR Emergency [facility] Emergency Room [facility] [place] [address] Jennifer Bell MD [address] [place] [address] Sickle cell pain crisis (H) Discharge Disposition: [...] file Legal Sex Female 8:25 AM METAL FABRICATING SUPERVISOR Gender Identity Not on file Sexual Orientation Not on file documented as of this encounter Last Filed Vital Signs Vital Sign Reading Time Taken Comments Blood Pressure 117/57 06/03/2024 5:00 PM METAL FABRICATING SUPERVISOR Pulse 96 06/03/2024 5:00 PM METAL FABRICATING SUPERVISOR Temperature 36.3 C (97.4 F) 06/03/2024 3:23 PM METAL FABRICATING SUPERVISOR Respiratory Rate 17 06/03/2024 5:00 PM METAL FABRICATING SUPERVISOR Oxygen Saturation 96% 06/03/2024 5:00 PM METAL FABRICATING SUPERVISOR Inhaled Oxygen Concentration - - Weight 52.2 kg (115 lb) 06/03/2024 3:23 PM METAL FABRICATING SUPERVISOR Height 154.9 cm (5' 1) 06/03/2024 3:23 PM METAL FABRICATING SUPERVISOR Body Mass Index 21.73 06/03/2024 3:23 PM METAL FABRICATING SUPERVISOR documented in this encounter Discharge Instructions * Attachments The following attachments cannot be sent through Care Everywhere. * Sickle Cell Crisis (Polish) documented in this encounter Medications at Time [...] testing initially patient had labs done at [facility] ER earlier this morning as well as [...] external records: External records reviewed?: Outpatient Record: [facility] today (06/03/24) Care impacted by chronic illness:Other: Sickle Cell Disease Did you consider but not order tests?: Work up considered but not performed and documented in chart, if applicable Did you interpret images independently?: Independent interpretation of ECG and images noted in documentation, when applicable. Consultation discussion with other provider:Did you involve another provider (quality assurance consultant, , pharmacy, etc.)?: No Discharge. I [...] 10-20 mL (10 mLs Intracatheter $Given 06/03/24 4884) heparin lock flush 10 unit/mL injection 5-10 [...] her sickle cell pain. Patient presented to [facility] this morning due to sickle cell crisis and has labs, covid, flu, RSV, and chest x-ray which were all negative. She usually visits [facility] ED when her pain presents but she did not want to drive far with the [employer]. According to patient, they didn't believe her sickle cell disease, so they discharged patient with no stronger pain medications so she decided to come here. Patient is afebrile. There were no other concerns/complaints at this time. 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 [...] Rate 85 BPM Atrial Rate 85 BPM WY Interval 136 ms QRS Duration 82 ms QT 382 ms QTc 454 ms P [place] 54 degrees R AXIS 72 degrees T [place] 50 degrees Interpretation ECG Sinus rhythm Nonspecific T wave abnormality Abnormal ECG When compared with ECG of 27-May-2024 12:12, No significant change was found Confirmed by SEE ED PROVIDER NOTE FOR, ECG INTERPRETATION (4000), supervising editor news reel BEN PRAKASH ([id number]) on 06/03/2024 3:58:10 PM EKG: Performed at: 03-Jun-2024 15:24:43 Impression: Sinus rhythm, nonspecific T wave abnormality, abnormal ECG Rate: 85 Rhythm: Sinus [place]: 72 WY Interval: 136 QRS Interval: 82 QTc Interval: [...] behalf by Alex Parsons, a trained medical consultant. This document has been checked and approved by the attending provider. Jennifer Bell MD Emergency Medicine [facility] EMERGENCY ROOM [address] [facility] [address] Dept: [phone] Jennifer Bell MD 06/03/24 1702 L FABRICATING SUPERVISOR * Nedra Martin RN - 06/03/2024 3:23 PM CST Pt c/o a possible sickle cell crisis with right sided chest pain that radiates to the left side. The pt did attempt to try using her home medication of diluadid of 4 mg without relief. Was just seen at [facility]. Pt has a port. Triage Assessment [...] WDL Cognitive/Neuro/Behavioral WDL Cognitive/Neuro/Behavioral WDL WDL L FABRICATING SUPERVISOR documented in this encounter Plan of Treatment Not on file documented as of this encounter Goals Goal Patient Goal Type Associated Problems Recent Progress Patient-Stated? Author Pain Management General On track( 025 12:40 PM METAL FABRICATING SUPERVISOR) Yes Juhi Benson, RN Note: Goal [...] MUSE MAHOGANYShawanda,SJO,WWRocio STAT 06/03/2024 3:24 PM METAL FABRICATING SUPERVISOR documented in this encounter Results * ECG 12-LEAD WITH MUSE (LHE) (06/03/2024 3:24 PM METAL FABRICATING SUPERVISOR) Systolic Blood Pressure 131 mmHg RADIOLOGY RESULTS Diastolic Blood Pressure 76 mmHg RADIOLOGY RESULTS Ventricular Rate 85 BPM RAD IOLOGY RESULTS Atrial Rate 85 BPM RADIOLOG Y RESULTS WY Interval 136 ms RADIOLOG Y RESULTS QRS Duration 82 ms RADIOLO GY RESULTS QT 382 ms RADIOLOGY RESULTS QTc 454 ms RADIOLOGY RESULTS P [place] 54 degrees RADIOLOGY RESULTS R AXIS 72 degrees RADIOLOGY RESULTS T [place] 50 degrees RADIOLOGY RESULTS Interpretation ECG Sinus rhythm Nonspecific T wave abnormality Abnormal ECG When compared with ECG of 27-May-2024 12:12, No significant change was found Confirmed by SEE ED PROVIDER NOTE FOR, ECG INTERPRETATION (4000), supervising editor news reel BEN PRAKASH ([id number]) on 06/03/2024 3:58:10 PM RADIOLOGY RESULTS 06/03/2024 3:24 PM METAL FABRICATING SUPERVISOR 06/03/2024 3:58 PM METAL FABRICATING SUPERVISOR us Deshawn Arredondo MD ECG ORDERABLES Edited [...] 1 dose $Given 06/03/2024 4:18 PM METAL FABRICATING SUPERVISOR 50 mg heparin lock flush 10 unit/mL [...] heparin flush. $Given 06/03/2024 5:20 PM METAL FABRICATING SUPERVISOR 5 mLs heparin lock flush 100 unit/mL [...] 3 doses $Given 06/03/2024 4:48 PM METAL FABRICATING SUPERVISOR 2 mg $Given 06/03/2024 3:46 PM METAL FABRICATING SUPERVISOR 2 mg lactated ringers BOLUS 1,000 mL Intravenous, 1,000 mL, ONCE, at 500 mL/hr, Administer over 2 Hours, On 06/03/24 at 1530, For 1 dose $New Bag 06/03/2024 3:51 PM METAL FABRICATING SUPERVISOR 1,000 mLs 500 mL/hr ondansetron (ZOFRAN) injection 8 mg 8 mg, Intravenous, ONCE, Administer over 2-5 Minutes, On 06/03/24 at 1530, For 1 dose $Given 06/03/2024 3:46 PM METAL FABRICATING SUPERVISOR 8 mg sodium chloride (PF) 0.9% PF [...] port lumen. $Given 06/03/2024 3:51 PM METAL FABRICATING SUPERVISOR 10 mLs documented in this encounter Active and Recently Administered Medications Times are shown in METAL FABRICATING SUPERVISOR. Scheduled Medication Order 06/01/2024 06/02/2024 06/03/2024 diphenhydrAMINE [...] lumen documented in this encounter Care Teams Insurance Appraiser Relationship Specialty Start Date End Date No Ref-Primary, Physician PCP - General 03/15/24 06/17/24 Mor Ramsey Medical Student 04/03/24 Case Samuel MD [address] [place] [address] 484, [address] [place] [address] Assigned Pediatric Specialist Provider 05/18/24 Juhi Benson, SOFIA Specialty Top Lift Nailer Hematology & Oncology 05/29/24 documented as of this encounter
--- OUTSIDE RECORDS SUMMARY | 2024-06-25 14:32 | XMS_ITS | Encounter Summary ---
Author Organization [facility] Address [address] [place] [address]. [place] [address] Care Team Providers Care Picking Machine Operator Helper Name Role Phone No Ref-Primary, Physician Primary Care Provider Mor Ramsey Unavailable Unavailable Case Samuel MD Unavailable [phone] Juhi Benson RN Unavailable Unavailable Reason for Visit * Reason Comments Sickle Cell Pain Crisis Encounter Details Date Type Department Care Team (Late st Contact Info) Description 06/07/2024 10:00 AM BAR PILOT - 06/07/2024 10:45 AM [facility] Emergency [facility] Emergency Room [facility] [place] [address] Bernabe Farley MD [facility] [address] [place] [address] Chest pain, unspecified type; Fever, unspecified fever [...] file Legal Sex Female 8:25 AM BAR PILOT Gender Identity Not on file Sexual Orientation Not on file documented as of this encounter Last Filed Vital Signs Vital Sign Reading Time Taken Comments Blood Pressure 108/63 06/07/2024 9:59 AM BAR PILOT Pulse 84 06/07/2024 9:59 AM BAR PILOT Temperature 36.6 C (97.9 F) 06/07/2024 9:59 AM BAR PILOT Respiratory Rate 19 06/07/2024 9:59 AM BAR PILOT Oxygen Saturation 100% 06/07/2024 9:59 AM BAR PILOT Inhaled Oxygen Concentration - - Weight 52.2 kg (115 lb) 06/07/2024 9:59 AM BAR PILOT Height - - Body Mass Index 21.73 06/06/2024 9:33 AM BAR PILOT documented in this encounter Medications at Time [...] 05/01/2024 naloxone (NARCAN) 4 MG/0.1ML nasal spray [place] 1 spray (4 mg) into one nostril [...] did not want to wait for a lead driver so she would like to leave at this time. MD and charge informed. PILOT * Bernabe Farley MD - 06/07/2024 10:04 [...] she unfortunately left by car as the lead driver after stating to staff that she [...] Additional ED Course timestamps entered by medical support specialist: 10:12 AM I met with the patient [...] at this time. Per Chart Review: 06/06/24, [facility] ED: Patient presented for sickle cell [...] our physician who is working with her machine pack assembler for the care plan. Per the patient [...] she shows signs of opiate overdose. Our financial secretary Hattie and our security sergeant Jagdeep both just saw the patient to get into the lead driver seat and drive away after being [...] my direction. Bernabe Farley M.D. Emergency Medicine [facility] EMERGENCY ROOM [address] [facility] [address] Dept: [phone] Bernabe Farley MD 06/07/24 1045 PILOT * Yanely Avendano RN - 06/07/2024 10:04 AM CST Pt here in sickle cell crisis for the 3rd day. Yesterday she received a lot of IV dilaudid and then drove home after told not to. Upon arrival here she repeatedly told this filing writer she was dropped off but after reviewing the security camera she is clearly driving in and getting out of the lead driver seat. Provider notified. Reports chest pain today. Last dose of oral was 2 hours ago. Triage Assessment (Adult) Row Name 06/07/24 0959 Triage Assessment Airway WDL WDL Respiratory WDL Respiratory WDL WDL Skin Circulation/Temperature WDL Skin Circulation/Temperature WDL WDL Cardiac WDL Cardiac WDL WDL Peripheral/Neurovascular WDL Peripheral Neurovascular WDL WDL Cognitive/Neuro/Behavioral WDL Cognitive/Neuro/Behavioral WDL WDL PILOT documented in this encounter Plan of Treatment Not on file documented as of this encounter Goals Goal Patient Goal Type Associated Problems Recent Progress Patient-Stated? Author Pain Management General On track( 025 12:40 PM BAR PILOT) Yes Juhi Benson, RN Note: Goal Statement: [...] Administered Medications Times are shown in BAR PILOT. Scheduled Medication Order 06/05/2024 06/06/2024 06/07/2024 heparin [...] COVID-19 06/07/2024 06/07/2024 06/07/2024 12:50 PM BAR PILOT documented as of this encounter Care Teams Picking Machine Operator Helper Relationship Specialty Start Date End Date No Ref-Primary, Physician PCP - General 03/15/24 06/17/24 Mor Ramsey Medical Student 04/03/24 Case Samuel MD [address] [place] [address] [address], [address] [place] [address] Assigned Pediatric Specialist Provider 05/18/24 Juhi Benson, RN Specialty Art Gilder Hematology & Oncology 05/29/24 documented as of this encounter
--- OUTSIDE RECORDS SUMMARY | 2024-06-25 14:32 | XMS_ITS | Encounter Summary ---
Author Organization [facility] Address [address] [place] [address]. [place] [address] Care Team Providers Care Home Office Representative Name Role Phone No Ref-Primary, Physician Primary Care Provider Mor Ramsey Unavailable Unavailable Case Samuel MD Unavailable [phone] Juhi Benson RN Unavailable Unavailable Encounter Details [...] on file Legal Sex Female 8:25 AM FINE GRADE OPERATOR Gender Identity Not on file Sexual Orientation Not on file documented as of this encounter Plan of Treatment Not on file documented as of this encounter Goals Goal Patient Goal Type Associated Problems Recent Progress Patient-Stated? Author Pain Management General On track( 025 12:40 PM FINE GRADE OPERATOR) Yes Juhi Benson RN Note: Goal [...] on filedocumented in this encounter Care Teams Home Office Representative Relationship Specialty Start Date End Date No Ref-Primary, Physician PCP - General 03/15/24 06/17/24 Mor Ramsey Medical Student 04/03/24 Case Samuel MD [address] [place] [address] [address], [address] [place] [address] Assigned Pediatric Specialist Provider 05/18/24 Juhi Benson RN Specialty Paperback Machine Operator Hematology & Oncology 05/29/24 documented as of this encounter
--- OUTSIDE RECORDS SUMMARY | 2024-06-25 14:32 | XMS_ITS | Encounter Summary ---
Author Organization [facility] Address [address] [place] [address]. [place] [address] Care Team Providers Care Culinary Intern Name Role Phone No Ref-Primary, Physician Primary Care Provider Mor Ramsey Unavailable Unavailable Case Samuel MD Unavailable [phone] Juhi Benson RN Unavailable Unavailable Reason for Visit * Reason Onset Date Comments Refill Request 06/05/2024 Encounter Details Date Type Department Care Team (Late st Contact Info) Description 06/05/2024 MyC Refill [facility] [address] [place] [address] Case Samuel MD [address] [place] [address] [address], [address] [place] [address] Refill Request Social History Tobacco [...] on file Legal Sex Female 8:25 AM RADIO INTERFERENCE TROUBLE SHOOTER Gender Identity Not on file Sexual Orientation [...] fill date and by whom: Dr. Samuel METHODS SPECIALIST Reviewed: Yes Send to provider: Routed to dr. Samuel and ESTEVAN Reynaga O INTERFERENCE TROUBLE SHOOTER documented in this encounter Plan of Treatment Not on file documented as of this encounter Goals Goal Patient Goal Type Associated Problems Recent Progress Patient-Stated? Author Pain Management General On track( 025 12:40 PM RADIO INTERFERENCE TROUBLE SHOOTER) Yes Juhi Benson, SOFIA Note: Goal Statement: [...] crisis documented in this encounter Care Teams Culinary Intern Relationship Specialty Start Date End Date No Ref-Primary, Physician PCP - General 03/15/24 06/17/24 Mor Ramsey Medical Student 04/03/24 Case Samuel MD [address] [place] [address] [address], [address] [place] [address] Assigned Pediatric Specialist Provider 05/18/24 Juhi Benson, SOFIA Specialty Telephone Supervisor Hematology & Oncology 05/29/24 documented as of this encounter
--- OUTSIDE RECORDS SUMMARY | 2024-06-25 14:32 | XMS_ITS | Encounter Summary ---
Author Organization [facility] Address [address] [place] [address]. [place] [address] Care Team Providers Care Pass Worker Name Role Phone No Ref-Primary, Physician Primary Care Provider Mor Ramsey Unavailable Unavailable Case Sameul MD Unavailable [phone] Juhi Benson RN Unavailable Unavailable Reason for Visit * Reason Comments Infusion * Auth/Cert Specialty Diagnoses / Procedures Referred By Shahid t Referred To Contact EMERGENCY MEDICINE Diagnoses Acute chest pain Sickle cell pain crisis (H) [facility] Emergency Department [address] [place] [address] Phone: tel: Referral ID Status Reason Start Date Expiration Date Visits Re quested Visits Authorized [id number] 1 1 Encounter Details Date Type Department Care Team ([facility] st Contact Info) Description 06/09/2024 11:30 AM GROUND WATER PUMP INSTALLER Infusion Therapy Visit [facility] [address] [place] [address] Case Samuel MD [address] [facility] [address], [address] [place] [address] Sickle cell pain crisis (H) [...] on file Legal Sex Female 8:25 AM GROUND WATER PUMP INSTALLER Gender Identity Not on file Sexual Orientation Not on file documented as of this encounter Last Filed Vital Signs Vital Sign Reading Time Taken Comments Blood Pressure 123/75 06/09/2024 11:45 AM GROUND WATER PUMP INSTALLER Pulse 87 06/09/2024 11:45 AM GROUND WATER PUMP INSTALLER Temperature 37 C (98.6 F) 06/09/2024 11:45 AM GROUND WATER PUMP INSTALLER Respiratory Rate 16 06/09/2024 11:45 AM GROUND WATER PUMP INSTALLER Oxygen Saturation 100% 06/09/2024 11:45 AM GROUND WATER PUMP INSTALLER Inhaled Oxygen Concentration - - Weight - - Height - - Body Mass Index - - documented in this encounter Progress Notes * Lynne Camacho, RN - 06/09/2024 11:30 AM CST Infusion Nursing Note: Gianna Hernández presents today for IV fluids + Dilaudid. Patient seen by provider today: No Woodyard Operator present during visit today: Not Applicable. Note: Rating pain at an 8 out of 10 upon arrival. 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 Intravenous Access: Implanted Port. Treatment Conditions: [...] all questions answered. AVS to patient via [employer]. Patient will return 06/13 for next appointment. Patient discharged in stable condition accompanied by: self and boyfriend. Departure Mode: Ambulatory. Lynne Camacho RN [place] WATER PUMP INSTALLER documented in this encounter Plan of Treatment Not on file documented as of this encounter Goals Goal Patient Goal Type Associated Problems Recent Progress Patient-Stated? Author Pain Management General On track( 025 12:40 PM GROUND WATER PUMP INSTALLER) Yes Juhi Benson, RN Note: Goal Statement: [...] pain crisis (H) $Given 06/09/2024 2:03 PM GROUND WATER PUMP INSTALLER 5 mLs hydromorphone (DILAUDID) injection 2 mg 2 mg, Intravenous, EVERY 1 HOUR PRN, severe pain, moderate pain, Starting on Wed06/09/24 at 1111, For 3 dosesIndications:Sickle cell pain crisis (H) $Given 06/09/2024 1:58 PM GROUND WATER PUMP INSTALLER 2 mg $Given 06/09/2024 12:52 PM GROUND WATER PUMP INSTALLER 2 mg $Given 06/09/2024 11:53 AM GROUND WATER PUMP INSTALLER 2 mg lactated ringers BOLUS 1,000 mL Intravenous, 1,000 mL, ONCE, at 500 mL/hr, Administer over 2 Hours, On Wed06/09/24 at 1115, For 1 doseIndications:Sickle cell pain crisis (H) $New Bag 06/09/2024 11:45 AM GROUND WATER PUMP INSTALLER 1,000 mLs 500 mL/hr sodium chloride (PF) [...] pain crisis (H) $Given 06/09/2024 11:45 AM GROUND WATER PUMP INSTALLER 20 mLs documented in this encounter Care Teams Pass Worker Relationship Specialty Start Date End Date No Ref-Primary, Physician PCP - General 03/15/24 06/17/24 Mor Ramsey Medical Student 04/03/24 Case Samuel MD [address] [place] [address] [address], [address] [place] [address] Assigned Pediatric Specialist Provider 05/18/24 Juhi Benson, RN Specialty Instrument Person Hematology & Oncology 05/29/24 documented as of this encounter
--- OUTSIDE RECORDS SUMMARY | 2024-06-25 14:32 | XMS_ITS | Encounter Summary ---
Author Organization [facility] Address [address] [place] [address] Care Team Providers Care Registered Radiologic Technologist Name Role Phone No Ref-Primary, Physician Primary Care Provider Mor Ramsey Unavailable Unavailable Case Samuel MD Unavailable [phone] Juhi Benson RN Unavailable Unavailable Reason for Visit * Reason Comments Sickle Cell Pain Crisis Encounter Details Date Type Department Care Team (Late st Contact Info) Description 06/06/2024 9:41 AM UTILIZATION MANAGEMENT UM NURSE - 06/06/2024 1:29 PM [facility] Emergency [facility] Emergency Room [facility] [place] [address] Marilia Summers MD [address] [place] [address] Sickle cell pain crisis (H) Discharge Disposition: [...] on file Legal Sex Female 8:25 AM UTILIZATION MANAGEMENT UM NURSE Gender Identity Not on file Sexual Orientation Not on file documented as of this encounter Last Filed Vital Signs Vital Sign Reading Time Taken Comments Blood Pressure 122/82 06/06/2024 1:00 PM UTILIZATION MANAGEMENT UM NURSE Pulse 77 06/06/2024 1:00 PM UTILIZATION MANAGEMENT UM NURSE Temperature 36.9 C (98.5 F) 06/06/2024 9:33 AM UTILIZATION MANAGEMENT UM NURSE Respiratory Rate 17 06/06/2024 9:33 AM UTILIZATION MANAGEMENT UM NURSE Oxygen Saturation 98% 06/06/2024 1:00 PM UTILIZATION MANAGEMENT UM NURSE Inhaled Oxygen Concentration - - Weight 52.2 kg (115 lb) 06/06/2024 9:33 AM UTILIZATION MANAGEMENT UM NURSE Height 154.9 cm (5' 1) 06/06/2024 9:33 AM UTILIZATION MANAGEMENT UM NURSE Body Mass Index 21.73 06/06/2024 9:33 AM UTILIZATION MANAGEMENT UM NURSE documented in this encounter Discharge Instructions * Discharge Instructions* Marilia Summers MD - 06/06/2024 12:48 PM UTILIZATION MANAGEMENT UM NURSE With the amount of hydromorphone that you [...] work on your care plan with your senior relationship manager to see if they would be agreeable to getting you an appointment with pain clinic even while you are waiting to start the plasmapheresis to work a bit more on a home pain regimen for you. Continue to follow your care plan discussed with your senior relationship manager to treat your sickle cell pain crisis. Your next dose of dilaudid should not be before 2:30 pm. IZATION MANAGEMENT UM NURSE IZATION MANAGEMENT UM NURSE * Attachments The following attachments cannot be sent through Care Everywhere. * Naloxone Nasal [place] (NALOXONE SPRAY - NASAL) (Polish) * Drug Overdose: Opioid (Polish) documented in this encounter Medications at [...] 05/01/2024 naloxone (NARCAN) 4 MG/0.1ML nasal spray [place] 1 spray (4 mg) into one nostril [...] WDL WDL Cognitive/Neuro/Behavioral WDL Cognitive/Neuro/Behavioral WDL WDL IZATION MANAGEMENT UM NURSE * Marilia Summers MD - 06/06/2024 9:34 [...] our physician who is working with her senior relationship manager for the care plan. Per the patient [...] plans and they will talk with her senior relationship manager about the request for the patient to [...] do now have a major issue. Our statistical secretary Hattie and our security guards dispatcher Augusto just saw the patient to get into the backhaul driver seat and drive away after being told specifically that she cannot drive and that she had told us that her significant other was driving in to pick herup. 1328 Our security did have her on video (as arnp concerned she did not get into a [...] Prescriptions NALOXONE (NARCAN) 4 MG/0.1ML NASAL SPRAY [place] 1 spray (4 mg) into one nostril [...] has been evaluated multiple times since in [place] and although she has a remote history [...] than previous suspect she was slightly dehydrated. [facility] Documentation Medical Decision Making Obtained supplemental [...] with other provider:Did you involve another provider (bank consultant, , pharmacy, etc.)?: No Discharge.continue current meds The creation of this record is based on the scribe???s observations of the work being performed by Alex Ashby and the provider???s statements to them. This document has been checked and approved byMD Marilia Martinez MD Emergency Medicine [facility] EMERGENCY ROOM Marilia Summers MD 06/06/24 1254 Marilia Summers MD 06/06/24 1257 Marilia Summers MD 06/06/24 1330 IZATION MANAGEMENT UM NURSE IZATION MANAGEMENT UM NURSE IZATION MANAGEMENT UM NURSE documented in this encounter Plan of Treatment Not on file documented as of this encounter Goals Goal Patient Goal Type Associated Problems Recent Progress Patient-Stated? Author Pain Management General On track( 025 12:40 PM UTILIZATION MANAGEMENT UM NURSE) Yes Juhi Benson, SOFIA Note: Goal Statement: [...] For 1 dose $Given 06/06/2024 10:22 AM UTILIZATION MANAGEMENT UM NURSE 50 mg heparin lock flush 10 unit/mL [...] each port lumen $Given 06/06/2024 1:13 PM UTILIZATION MANAGEMENT UM NURSE 5 mLs HYDROmorphone (DILAUDID) injection 2 mg 2 mg, Intravenous, EVERY 1 HOUR PRN, moderate pain, Starting on Wed06/06/24 at 0958, For 2 doses $Given 06/06/2024 11:31 AM UTILIZATION MANAGEMENT UM NURSE 2 mg $Given 06/06/2024 10:22 AM UTILIZATION MANAGEMENT UM NURSE 1 mg HYDROmorphone (DILAUDID) injection 2 mg 2 mg, Intravenous, ONCE, On Wed06/06/24 at 1300, For 1 dose $Given 06/06/2024 12:57 PM UTILIZATION MANAGEMENT UM NURSE 2 mg lactated ringers BOLUS 1,000 mL Intravenous, 1,000 mL, ONCE, On Wed06/06/24 at 1000, For 1 dose $New Bag 06/06/2024 10:12 AM UTILIZATION MANAGEMENT UM NURSE 1,000 mLs sodium chloride (PF) 0.9% PF [...] Recently Administered Medications Times are shown in UTILIZATION MANAGEMENT UM NURSE. Scheduled Medication Order 06/04/2024 06/05/2024 06/06/2024 heparin [...] lumen documented in this encounter Care Teams Registered Radiologic Technologist Relationship Specialty Start Date End Date No Ref-Primary, Physician PCP - General 03/15/24 06/17/24 Mor Ramsey Medical Student 04/03/24 Case Samuel MD [address] [place] [address] [address], [address] [place] [address] Assigned Pediatric Specialist Provider 05/18/24 Marcelino, Juhi, RN Specialty Unisaw Operator Hematology & Oncology 05/29/24 documented as of this encounter
--- OUTSIDE RECORDS SUMMARY | 2024-06-25 14:32 | XMS_ITS | Encounter Summary ---
Author Organization [facility] Address [address] [place] [address]. [place] [address] Care Team Providers Care Cleaner Operator Name Role Phone No Ref-Primary, Physician Primary Care Provider Mor Ramsey Unavailable Unavailable Case Samuel MD Unavailable [phone] Juhi Benson RN Unavailable Unavailable Reason for Visit * Reason Comments Sickle Cell Pain Crisis Chest Pain Encounter Details Date Type Department Care Team (Late st Contact Info) Description 06/05/2024 11:41 AM DATABASE ARCHITECT - 06/05/2024 3:28 PM [facility] Emergency Room [address] [place] [address] Stiven Madsen MD [address] [address] Star Gifford MD [address] [place], [place] [id number] Sickle cell pain crisis (H) Discharge Disposition: [...] on file Legal Sex Female 8:25 AM DATABASE ARCHITECT Gender Identity Not on file Sexual Orientation Not on file documented as of this encounter Last Filed Vital Signs Vital Sign Reading Time Taken Comments Blood Pressure 114/67 06/05/2024 3:00 PM DATABASE ARCHITECT Pulse 74 06/05/2024 3:00 PM DATABASE ARCHITECT Temperature 36.8 C (98.3 F) 06/05/2024 11:37 AM DATABASE ARCHITECT Respiratory Rate 18 06/05/2024 11:37 AM DATABASE ARCHITECT Oxygen Saturation 99% 06/05/2024 3:00 PM DATABASE ARCHITECT Inhaled Oxygen Concentration - - Weight 52.2 kg (115 lb) 06/05/2024 11:37 AM DATABASE ARCHITECT Height 154.9 cm (5' 1) 06/05/2024 11:37 AM DATABASE ARCHITECT Body Mass Index 21.73 06/05/2024 11:37 AM DATABASE ARCHITECT documented in this encounter Discharge Instructions * Discharge Instructions* Stiven Madsen MD - 06/05/2024 12:59 PM DATABASE ARCHITECT You were seen in the emergency department for a pain crisis. You were given medications and IV fluids. Please continue to follow-up with your established social service worker after this ED visit. BASE ARCHITECT documented in this encounter Medications at Time [...] with other provider:Did you involve another provider (cisco consultant, , pharmacy, etc.)?: No Discharge. No recommendations on prescription strength medication(s). See documentation for any additional details. MIPS: Not Applicable MEDICATIONS GIVEN IN THE EMERGENCY: Medications lactated ringers infusion (0 mLs Intravenous Stopped 06/05/24 8236) ondansetron (ZOFRAN) injection 8 mg (8 mg Intravenous $Given 06/05/24 1236) diphenhydrAMINE (BENADRYL) capsule 25 mg (25 mg Oral $Given 06/05/24 1240) NEW PRESCRIPTIONS STARTED AT TODAY'S ER VISIT Discharge Medication List as of 06/05/2024 3:28 PM HPI Patient information was obtained from: Patient Use of Cook Fruit: N/A Gianna Hernández is a 29 year [...] Per chart review, patient was seen at [facility] ED for sickle cell pain crisis on 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 Recently moved to [place] from [place], [place]. She is 1 of 9 [...] Social Connections: Socially Integrated (03/28/2024) Received from [facility] Social Connections Do you often feel [...] abnormality. Rate: 88 BPM Rhythm: Sinus rhythm [place]: 81 [place] Interval: 148 ms QRS Interval: 82 ms [...] my direction. Stiven Madsen M.D. Emergency Medicine [facility] EMERGENCY ROOM [address] [facility] [id number] Dept: [phone] Stiven Madsen MD 06/05/24 1433 Stiven Madsen MD 06/05/24 1938 BASE ARCHITECT BASE ARCHITECT * Jose Ramon Sims, SOFIA - 06/05/2024 [...] WDL WDL Cognitive/Neuro/Behavioral WDL Cognitive/Neuro/Behavioral WDL WDL BASE ARCHITECT documented in this encounter Plan of Treatment Not on file documented as of this encounter Goals Goal Patient Goal Type Associated Problems Recent Progress Patient-Stated? Author Pain Management General On track( 025 12:40 PM DATABASE ARCHITECT) Yes Juhi Benson, RN Note: Goal Statement: [...] MUSE JEREMIAS HORVATH,WWRocio STAT 06/05/2024 11:40 AM DATABASE ARCHITECT documented in this encounter Results * ECG 12-LEAD WITH MUSE (LHE) (06/05/2024 11:40 AM DATABASE ARCHITECT) Systolic Blood Pressure mmHg RADIOLOGY RESULTS Diastolic Blood Pressure mmHg RADIOLOGY RESULTS Ventricular Rate 88 BPM RAD IOLOGY RESULTS Atrial Rate 88 BPM RADIOLOG Y RESULTS [place] Interval 148 ms RADIOLOG Y RESULTS QRS Duration 82 ms RADIOLO GY RESULTS QT 388 ms RADIOLOGY RESULTS QTc 469 ms RADIOLOGY RESULTS P [place] 43 degrees RADIOLOGY RESULTS R AXIS 81 degrees RADIOLOGY RESULTS T [place] 57 degrees RADIOLOGY RESULTS Interpretation ECG Sinus rhythm Nonspecific T wave abnormality Prolonged QT Abnormal ECG When compared with ECG of 03-Jun-2024 15:24, No significant change was found Confirmed by SEE ED PROVIDER NOTE FOR, ECG INTERPRETATION (4000), writer editor Ariadna Shabazz ([id number]) on 06/05/2024 12:02:47 PM RADIOLOGY RESULTS 06/05/2024 11:4 0 AM DATABASE ARCHITECT 06/05/2024 12:02 PM DATABASE ARCHITECT us Stiven Madsen MD ECG ORDERABLES Edited [...] For 1 dose $Given 06/05/2024 12:40 PM DATABASE ARCHITECT 25 mg heparin lock flush 10 unit/mL [...] for each lumen $Given 06/05/2024 3:20 PM DATABASE ARCHITECT 5 mLs HYDROmorphone (DILAUDID) injection 2 mg 2 mg, Intravenous, EVERY 1 HOUR PRN, moderate pain, severe pain, Starting on Wed06/05/24 at 1153 $Given 06/05/2024 2:56 PM DATABASE ARCHITECT 2 mg $Given 06/05/2024 1:54 PM DATABASE ARCHITECT 2 mg $Given 06/05/2024 12:40 PM DATABASE ARCHITECT 2 mg lactated ringers infusion at 500 mL/hr, Intravenous, CONTINUOUS, Starting on Wed06/05/24 at 1200, Until Wed06/05/24 at 1359 $New Bag 06/05/2024 12:39 PM DATABASE ARCHITECT 500 mL/hr ondansetron (ZOFRAN) injection 8 mg 8 mg, Intravenous, ONCE, Administer over 2-5 Minutes, On Wed06/05/24 at 1200, For 1 dose $Given 06/05/2024 12:39 PM DATABASE ARCHITECT 8 mg documented in this encounter Active and Recently Administered Medications Times are shown in DATABASE ARCHITECT. Scheduled Medication Order 06/03/2024 06/04/2024 06/05/2024 ondansetron [...] RN) documented in this encounter Care Teams Cleaner Operator Relationship Specialty Start Date End Date No Ref-Primary, Physician PCP - General 03/15/24 06/17/24 Mor Ramsey Medical Student 04/03/24 Case Samuel MD [address] [place] [address] [address], [address] [place] [address] Assigned Pediatric Specialist Provider 05/18/24 Juhi Benson, SOFIA Specialty Ironer Hand Hematology & Oncology 05/29/24 documented as of this encounter
--- OUTSIDE RECORDS SUMMARY | 2024-06-25 14:32 | XMS_ITS | Encounter Summary ---
Author Organization [facility] Address [address] [place] [address]. [place] [address] Care Team Providers Care Care Taker Name Role Phone No Ref-Primary, Physician Primary Care Provider Mor Ramsey Unavailable Unavailable Case Samuel MD Unavailable [phone] Juhi Benson RN Unavailable Unavailable Encounter Details [...] on file Legal Sex Female 8:25 AM PROFESSOR OF VEGETABLE SCIENCE Gender Identity Not on file Sexual Orientation Not on file documented as of this encounter Plan of Treatment Not on file documented as of this encounter Goals Goal Patient Goal Type Associated Problems Recent Progress Patient-Stated? Author Pain Management General On track( 025 12:40 PM PROFESSOR OF VEGETABLE SCIENCE) Yes Juhi Benson RN Note: Goal Statement: [...] Out COVID-19 06/07/2024 06/07/2024 06/07/2024 12:50 PM PROFESSOR OF VEGETABLE SCIENCE Rule Out COVID-19 06/07/2024 06/07/2024 06/07/2024 3:32 PM PROFESSOR OF VEGETABLE SCIENCE documented as of this encounter Care Teams Care Taker Relationship Specialty Start Date End Date No Ref-Primary, Physician PCP - General 03/15/24 06/17/24 Elvira Ramseyc Medical Student 04/03/24 Case Samuel MD [address] [place] [address] [address], [address] [place] [address] Assigned Pediatric Specialist Provider 05/18/24 Juhi Benson, RN Specialty Scrap Worker Hematology & Oncology 05/29/24 documented as of this encounter
--- OUTSIDE RECORDS SUMMARY | 2024-06-25 14:32 | XMS_ITS | Encounter Summary ---
Author Organization [facility] Address [address] [place] [address]. [place] [address] Care Team Providers Care Dust Operator Name Role Phone No Ref-Primary, Physician Primary Care Provider Mor Ramsey Unavailable Unavailable Case Samuel MD Unavailable [phone] Juhi Benson RN Unavailable Unavailable Encounter Details [...] on file Legal Sex Female 8:25 AM BLANKER PRESS OPERATOR Gender Identity Not on file Sexual Orientation Not on file documented as of this encounter Plan of Treatment Not on file documented as of this encounter Goals Goal Patient Goal Type Associated Problems Recent Progress Patient-Stated? Author Pain Management General On track( 025 12:40 PM BLANKER PRESS OPERATOR) Yes Juhi Benson RN Note: Goal [...] on filedocumented in this encounter Care Teams Dust Operator Relationship Specialty Start Date End Date No Ref-Primary, Physician PCP - General 03/15/24 06/17/24 Mor Ramsey Medical Student 04/03/24 Case Samuel MD [address] [place] [address] [address], [address] [place] [address] Assigned Pediatric Specialist Provider 05/18/24 Juhi Benson RN Specialty Auto Damage Trainee Hematology & Oncology 05/29/24 documented as of this encounter
--- OUTSIDE RECORDS SUMMARY | 2024-06-25 14:32 | XMS_ITS | Encounter Summary ---
Author Organization [facility] Address [address] [place] [address]. [place] [address] Care Team Providers Care Home Health Care Physician Name Role Phone No Ref-Primary, Physician Primary Care Provider Mor Ramsey Unavailable Unavailable Case Samuel MD Unavailable [phone] Juhi Benson RN Unavailable Unavailable Encounter Details [...] on file Legal Sex Female 8:25 AM COVERER Gender Identity Not on file Sexual Orientation Not on file documented as of this encounter Plan of Treatment Not on file documented as of this encounter Goals Goal Patient Goal Type Associated Problems Recent Progress Patient-Stated? Author Pain Management General On track( 025 12:40 PM COVERER) Yes Juhi Benson RN Note: Goal Statement: [...] filedocumented in this encounter Care Teams Home Health Care Physician Relationship Specialty Start Date End Date No Ref-Primary, Physician PCP - General 03/15/24 06/17/24 Mor Ramsey Medical Student 04/03/24 Case Samuel MD [address] [place] [address] [address], [address] [place] [address] Assigned Pediatric Specialist Provider 05/18/24 Juhi Benson RN Specialty Brick Chimney Builder Hematology & Oncology 05/29/24 documented as of this encounter
--- OUTSIDE RECORDS SUMMARY | 2024-06-25 14:32 | XMS_ITS | Encounter Summary ---
Author Organization [facility] Address [address] [place] [address] Care Team Providers Care Blocker And Cutter Contact Lens Name Role Phone No Ref-Primary, Physician Primary Care Provider Mor Ramsey Unavailable Unavailable Case Samuel MD Unavailable [phone] Juhi Benson RN Unavailable Unavailable Reason for Visit * Reason Comments Blood Transfusion 1 unit blood Infusion Fluids and pain medi cations Encounter Details Date Type Department Care Team (Late st Contact Info) Description 05/30/2024 8:00 AM CORRECTIONAL MAINTENANCE TECHNICIAN Infusion Therapy Visit [facility] Advanced Treatment [facility] [address] [place] [address] Case Samuel MD [address] [place] [address] [address], [address] [place], [place] [address] 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); [...] on file Legal Sex Female 8:25 AM CORRECTIONAL MAINTENANCE TECHNICIAN Gender Identity Not on file Sexual Orientation Not on file documented as of this encounter Last Filed Vital Signs Vital Sign Reading Time Taken Comments Blood Pressure 109/72 05/30/2024 11:15 AM CORRECTIONAL MAINTENANCE TECHNICIAN Pulse 77 05/30/2024 11:15 AM CORRECTIONAL MAINTENANCE TECHNICIAN Temperature 36.5 C (97.7 F) 05/30/2024 10:21 AM CORRECTIONAL MAINTENANCE TECHNICIAN Respiratory Rate 16 05/30/2024 10:21 AM CORRECTIONAL MAINTENANCE TECHNICIAN Oxygen Saturation 95% 05/30/2024 10:21 AM CORRECTIONAL MAINTENANCE TECHNICIAN Inhaled Oxygen Concentration - - Weight - - Height - - Body Mass Index - - documented in this encounter Patient Instructions * Patient Instructions* Arlene Moses RN - 05/30/2024 8:00 AM CORRECTIONAL MAINTENANCE TECHNICIAN Dear Gianna Hernández Thank you for choosing [facility] ([facility]) for your transfusion. The following information is a summary of our appointment as well as important reminders. If you have any questions on your upcoming Specialty Infusion appointments, please call scheduling at [phone]. It was a pleasure taking care of you today. Sincerely, [facility] [address] [place] [id number] ECTIONAL MAINTENANCE TECHNICIAN * Attachments The following attachments cannot be sent through Care Everywhere. * Blood Transfusions: General Info (Bolivian) documented in this encounter Progress Notes * Arlene Moses RN - 05/30/2024 8:00 AM CST Blood Product Transfusion Nursing Note: Gianna Hernández presents today to [facility] for a blood transfusion. During today's [facility] appointment orders from Dr Samuel were completed. Progress note: ID verified by name and . Assessment completed. Vitals were stable throughout time in [facility]. Verbal education given to patient/lead customer service representative regarding transfusion and possible side effects. Patient/lead customer service representative verbalized understanding. Curing Supervisor present during visit today: Not Applicable. All [...] Discharge instructions were reviewed with patient Yes Patient/lead customer service representative verbalized understanding of discharge instructions [...] By Arlene Moses RN Alyssa Sakhitab-Kerestes, RN ECTIONAL MAINTENANCE TECHNICIAN documented in this encounter Plan of Treatment Not on file documented as of this encounter Goals Goal Patient Goal Type Associated Problems Recent Progress Patient-Stated? 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) History of transfusion PREPARE RED BLOOD CELLS (UNIT) Routine 05/29/2024 5:12 PM CORRECTIONAL MAINTENANCE TECHNICIAN documented in this encounter Results * Transfuse red blood cells (unit), Sickle Cell (Hgb S) Negative (05/30/2024 10:24 AM CORRECTIONAL MAINTENANCE TECHNICIAN) Case Samuel MD BLOOD TRANSFUSION ORDERAB LES Final Result * Transfuse red blood cells (unit), 1 Units, Sickle Cell (Hgb S) Negative (05/30/2024 10:24 AM CORRECTIONAL MAINTENANCE TECHNICIAN) Case Samuel MD BLOOD TRANSFUSION ORDERAB LES Final Result * Prepare red blood cells (unit) (05/29/2024 5:12 PM CORRECTIONAL MAINTENANCE TECHNICIAN) Blood Component Type Red Blood Cells [facility] BLOOD BANK Product Code [id number] [facility] BLOO D BANK Unit Status Transfused UU BLOO D BANK Unit Number [id number] UU B LOOD BANK CROSSMATCH COMPATIBLE U BLOOD BANK CODING SYSTEM [id number] U[facility] BLO OD BANK ISSUE DATE AND TIME [id number] [facility] BLOOD BANK UNIT ABO/RH A- U[facility] BLOOD BANK UNIT TYPE ISBT 0600 U[facility] BL OOD BANK 05/29/2024 5:12 PM CORRECTIONAL MAINTENANCE TECHNICIAN Case Samuel MD BLOOD BANK PRODUCT ORDERA BLES Final Result [facility] BLOOD BANK [address] [place] [address], [facility] documented in this encounter Visit Diagnoses [...] (H),History of transfusion $Given 05/30/2024 11:18 AM CORRECTIONAL MAINTENANCE TECHNICIAN 5 mLs HYDROmorphone (DILAUDID) injection 2 mg 2 mg, Intravenous, EVERY 1 HOUR PRN, severe pain, moderate pain, Starting on Wed05/30/24 at 0833, For 3 dosesIndications:Sickle cell pain crisis (H) $Given 05/30/2024 10:56 AM CORRECTIONAL MAINTENANCE TECHNICIAN 2 mg $Given 05/30/2024 9:44 AM CORRECTIONAL MAINTENANCE TECHNICIAN 2 mg $Given 05/30/2024 8:39 AM CORRECTIONAL MAINTENANCE TECHNICIAN 2 mg lactated ringers BOLUS 1,000 mL Intravenous, 1,000 mL, ONCE, at 500 mL/hr, Administer over 2 Hours, On Wed05/30/24 at 0845, For 1 doseIndications:Sickle cell pain crisis (H) $New Bag 05/30/2024 10:24 AM CORRECTIONAL MAINTENANCE TECHNICIAN 500 mLs 500 mL/hr sodium chloride (PF) [...] (H),History of transfusion $Given 05/30/2024 11:18 AM CORRECTIONAL MAINTENANCE TECHNICIAN 20 mLs $Given 05/30/2024 10:20 AM CORRECTIONAL MAINTENANCE TECHNICIAN 20 mLs documented in this encounter Care Teams Blocker And Cutter Contact Lens Relationship Specialty Start Date End Date No Ref-Primary, Physician PCP - General 03/15/24 06/17/24 Mor Ramsey Medical Student 04/03/24 Case Samuel MD [address] [place] [address] [address], [address] [place] [address] Assigned Pediatric Specialist Provider 05/18/24 Juhi Benson, RN Specialty Library Science Professor Hematology & Oncology 05/29/24 documented as of this encounter
--- OUTSIDE RECORDS SUMMARY | 2024-06-25 14:33 | XMS_ITS | Encounter Summary ---
Author Organization [facility] Address [address] [place] [address] Care Team Providers Care Data Entry Technician Name Role Phone Roxy Mor Unavailable Unavailable Case Samuel MD Unavailable [phone] Juhi Benson RN Unavailable Unavailable Veronica Joseph MD Primary Care Provider [phone] Reason for Visit * Reason Comments Sickle Cell Pain Crisis Encounter Details Date Type Department Care Team (Late st Contact Info) Description 06/22/2024 5:23 PM TAPER AND FLOATER - 06/22/2024 10:02 PM TAPER AND FLOATER Emergency [facility] Emergency Department [address] [place] [phone] Lynne Varner MD [address] [place] [id number] Sickle cell anemia with crisis (H) Discharge [...] on file Legal Sex Female 8:25 AM TAPER AND FLOATER Gender Identity Not on file Sexual Orientation Not on file documented as of this encounter Last Filed Vital Signs Vital Sign Reading Time Taken Comments Blood Pressure 104/73 06/22/2024 5:03 PM TAPER AND FLOATER Pulse 100 06/22/2024 5:03 PM TAPER AND FLOATER Temperature 36.8 C (98.2 F) 06/22/2024 5:03 PM TAPER AND FLOATER Respiratory Rate 16 06/22/2024 5:03 PM TAPER AND FLOATER Oxygen Saturation 99% 06/22/2024 5:03 PM TAPER AND FLOATER Inhaled Oxygen Concentration - - Weight 52.2 kg (115 lb) 06/22/2024 5:03 PM TAPER AND FLOATER Height 154.9 cm (5' 1) 06/22/2024 5:03 PM TAPER AND FLOATER Body Mass Index 21.73 06/22/2024 5:03 PM TAPER AND FLOATER documented in this encounter Discharge Instructions * Discharge Instructions* Lynne Varner MD - 06/22/2024 5:43 PM TAPER AND FLOATER TODAY'S VISIT: You were seen today for [...] new or worsening symptoms or any concerns. R AND FLOATER * Attachments The following attachments cannot be [...] 05/01/2024 naloxone (NARCAN) 4 MG/0.1ML nasal spray [place] 1 spray (4 mg) into one nostril [...] needed for severe pain. 40 tablet 06/15/2024 documented as of this encounter ED Notes [...] Surgical History, and Social History in the [employer] system. 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 Recently moved to [place] from [place], [place]. She is 1 of 9 [...] Social Connections: Socially Integrated (03/28/2024) [facility] [facility] Social Connections Do you often feel lonely [...] Status --------- ------ CBC with platelets and d...[[id number]] Abnormal Final result RBC and Platelet Morphology[[id number]] Please view results for these tests on [...] with crisis (H) LYNNE VARNER MD 06/22/2024 [facility] EMERGENCY DEPARTMENT Lynne Varner MD 06/22/24 [id number] R AND FLOATER * Milagros Lofton RN - 06/22/2024 5:06 PM CST Pt is here for sickle cell crisis. Pain in her back and both legs. PT took her home dilaudid oral at 2 pm. Pt coming in for her pain. Denies any symptoms. Triage Assessment (Adult) Row Name 06/22/24 1102 Triage Assessment Airway WDL WDL Respiratory WDL Respiratory WDL WDL Skin Circulation/Temperature WDL Skin Circulation/Temperature WDL WDL Cardiac WDL Cardiac WDL WDL Cardiac Rhythm Other (Comment) Peripheral/Neurovascular WDL Peripheral Neurovascular WDL WDL Cognitive/Neuro/Behavioral WDL Cognitive/Neuro/Behavioral WDL WDL R AND FLOATER documented in this encounter Plan of Treatment Not on file documented as of this encounter Goals Goal Patient Goal Type Associated Problems Recent Progress Patient-Stated? Author Pain Management General On track( 025 12:40 PM TAPER AND FLOATER) Yes Juhi Benson, RN Note: Goal Statement: [...] PLATELETS AND DIFFERENTIAL STAT 06/22/2024 7:10 PM TAPER AND FLOATER CBC WITH PLATELETS & DIFFERENTIAL STAT 06/22/2024 7:10 PM TAPER AND FLOATER RETICULOCYTE COUNT STAT 06/22/2024 7: 10 PM TAPER AND FLOATER HCG QUALITATIVE STAT 06/22/2024 7:10 PM TAPER AND FLOATER COMPREHENSIVE METABOLIC PANEL STAT 06/22/2024 7:10 PM TAPER AND FLOATER documented in this encounter Results * (ABNORMAL) CBC with platelets and differential (06/22/2024 7:10 PM TAPER AND FLOATER) Pathologist [facility] WBC Count 13.7(H) 4.0 - 11.0 10e3/uL 06/22/2024 7:47 PM TAPER AND FLOATER [facility] RBC Count 2.48(L) 3.80 - 5.20 10e6/uL 06/22/2024 7:47 PM TAPER AND FLOATER [facility] Hemoglobin 8.2(L) 11.7 - 15.7 g/dL 06/22/2024 7:47 PM TAPER AND FLOATER [facility] Hematocrit 23.3(L) 35.0 - 47.0 % 06/22/2024 7:47 PM TAPER AND FLOATER [facility] MCV 94 78 - 100 fL 06/22/2024 7:47 PM TAPER AND FLOATER [facility] MCH 33.1(H) 26.5 - 33.0 pg 06/22/2024 7:47 PM TAPER AND FLOATER [facility] MCHC 35.2 31.5 - 36.5 g/dL 06/22/2024 7:47 PM TAPER AND FLOATER [facility] RDW 18.6(H) 10.0 - 15.0 % 06/22/2024 7:47 PM TAPER AND FLOATER [facility] Platelet Count 470(H) 150 - 450 10e3/uL 06/22/2024 7:47 PM TAPER AND FLOATER [facility] % Neutrophils 78 % 06/22/2024 7:47 PM TAPER AND FLOATER [facility] % Lymphocytes 16 % 06/22/2024 7:47 PM TAPER AND FLOATER [facility] % Monocytes 4 % 06/22/2024 7:47 PM TAPER AND FLOATER [facility] % Eosinophils 1 % 06/22/2024 7:47 PM TAPER AND FLOATER [facility] % Basophils 1 % 06/22/2024 7:47 PM TAPER AND FLOATER [facility] % Immature Granulocytes 1 % 06/22/2024 7:47 PM TAPER AND FLOATER [facility] NRBCs per 100 WBC 3(H) <1 /100 025 7:47 PM TAPER AND FLOATER [facility] Absolute Neutrophils 10.6(H) 1.6 - 8.3 10e3/uL 06/22/2024 7:47 PM TAPER AND FLOATER [facility] Absolute Lymphocytes 2.3 0.8 - 5.3 10e3/uL 06/22/2024 7:47 PM TAPER AND FLOATER [facility] Absolute Monocytes 0.5 0.0 - 1.3 10e3/uL 06/22/2024 7:47 PM TAPER AND FLOATER [facility] Absolute Eosinophils 0.1 0.0 - 0.7 10e3/uL 06/22/2024 7:47 PM TAPER AND FLOATER [facility] Absolute Basophils 0.1 0.0 - 0.2 10e3/uL 06/22/2024 7:47 PM TAPER AND FLOATER [facility] Absolute Immature Granulocytes 0.1 <=0.4 10e3/uL 06/22/2024 7:47 PM TAPER AND FLOATER [facility] Absolute NRBCs 0.4 10e3/uL 06/22/2024 7:47 PM TAPER AND FLOATER [facility] Blood VENOUS LINE / Unknown Venipuncture / Unknown 06/22/2024 7:10 PM TAPER AND FLOATER 06/22/2024 7:16 PM TAPER AND FLOATER Lynne Varner MD LAB - BLOOD ORDERABLES Fin al Result [facility] [place] [facility] [address] [facility], [address] [address] [place] [address] * (ABNORMAL) Reticulocyte count (06/22/2024 7:10 PM TAPER AND FLOATER) % Reticulocyte 5.3(H) 0.5 - 2.0 % 06/22/2024 7:23 PM TAPER AND FLOATER [facility] Absolute Reticulocyte 0.130(H) 0.025 - 0.095 10e6/uL 06/22/2024 7:23 PM TAPER AND FLOATER [facility] Blood VENOUS LINE / Unknown Venipuncture / Unknown 06/22/2024 7:10 PM TAPER AND FLOATER 06/22/2024 7:16 PM TAPER AND FLOATER Lynne Varner MD LAB - BLOOD ORDERABLES Fin al Result Performing Organization Address [facility] Co de Phone Number [facility] [place] [facility] [address] [facility], [address] * HCG qualitative Blood (06/22/2024 7:10 PM TAPER AND FLOATER) Pathologist [facility] hCG Serum Qualitative Negative Negative JARET 06/22/2024 7:45 PM TAPER AND FLOATER [facility] Comment:This test is for scr eening purposes. Results should be interpreted along with the clinical picture. Confirmation testing is available if warranted by ordering [id number], HCG Quantitative . Blood VENOUS LINE / Unknown Venipuncture / Unknown 06/22/2024 7:10 PM TAPER AND FLOATER 06/22/2024 7:26 PM TAPER AND FLOATER Lynne Varner MD LAB - BLOOD ORDERABLES Fin al Result [facility] [place] [facility] [address] [facility], [address] [place] [address], [facility] * (ABNORMAL) Comprehensive metabolic panel (06/22/2024 7:10 PM TAPER AND FLOATER) Sodium 137 135 - 145 mmol/L 06/22/2024 8:00 PM TAPER AND FLOATER [facility] Potassium 4.5 3.4 - 5.3 mmol/L 06/22/2024 8:00 PM TAPER AND FLOATER [facility] Carbon Dioxide (CO2) 21(L) 22 - 29 mmol/L 06/22/2024 8:00 PM TAPER AND FLOATER [facility] Anion Gap 8 7 - 15 mmol/L 06/22/2024 8:00 PM TAPER AND FLOATER [facility] Urea Nitrogen 12.1 6.0 - 20.0 mg/dL 06/22/2024 8:00 PM TAPER AND FLOATER [facility] Creatinine 0.71 0.51 - 0.95 mg/dL 06/22/2024 8:00 PM TAPER AND FLOATER [facility] GFR Estimate >90 >60 mL/min/1.7 3m2 06/22/2024 8:00 PM TAPER AND FLOATER [facility] Comment:eGFR calculated us2020 CKD-EPI equation. Calcium 9.5 8.8 - 10.4 mg/dL 06/22/2024 8:00 PM TAPER AND FLOATER [facility] Chloride 108(H) 98 - 107 mmol/L 06/22/2024 8:00 PM TAPER AND FLOATER [facility] Glucose 100(H) 70 - 99 mg/dL 06/22/2024 8:00 PM TAPER AND FLOATER [facility] Alkaline Phosphatase 119 40 - 150 U/L 06/22/2024 8:00 PM TAPER AND FLOATER [facility] AST 62(H) 0 - 45 U/L 06/22/2024 8:00 PM TAPER AND FLOATER [facility] ALT 54(H) 0 - 50 U/L 06/22/2024 8:00 PM TAPER AND FLOATER [facility] Protein Total 7.8 6.4 - 8.3 g/dL 06/22/2024 8:00 PM TAPER AND FLOATER [facility] Albumin 4.1 3.5 - 5.2 g/dL 06/22/2024 8:00 PM TAPER AND FLOATER [facility] Bilirubin Total 1.4(H) <=1.2 mg/dL 06/22/2024 8:00 PM TAPER AND FLOATER [facility] Blood VENOUS LINE / Unknown Venipuncture / Unknown 06/22/2024 7:10 PM TAPER AND FLOATER 06/22/2024 7:16 PM TAPER AND FLOATER us Lynne Varner MD LAB - BLOOD ORDERABLES Fin al Result [facility] [place] [facility] [address] [facility], [address] [place] [address] documented in [...] For 1 dose $Given 06/22/2024 7:19 PM TAPER AND FLOATER 25 mg heparin lock flush 100 unit/mL injection 100 Units 100 Units, Intravenous, ONCE, On Citlali 06/22/24 at 2150, For 1 dose $Given 06/22/2024 9:53 PM TAPER AND FLOATER 100 Units hydromorphone (DILAUDID) injection 2 mg 2 mg, Intravenous, EVERY 1 HOUR PRN, severe pain, Starting on [place]lali 06/22/24 at 1735, For 3 doses $Given 06/22/2024 9:33 PM TAPER AND FLOATER 2 mg $Given 06/22/2024 8:34 PM TAPER AND FLOATER 2 mg $Given 06/22/2024 7:20 PM TAPER AND FLOATER 2 mg lactated ringers BOLUS 1,000 mL Intravenous, 1,000 mL, ONCE, at 1,000 mL/hr, Administer over 1 Hours, On Citlali 06/22/24 at 1740, For 1 dose $New Bag 06/22/2024 7:19 PM TAPER AND FLOATER 1,000 mLs 1000 mL/hr ondansetron (ZOFRAN) injection 4 mg 4 mg, Intravenous, EVERY 30 MIN PRN, nausea, vomiting, Administer over 2-5 Minutes, Starting on Citlali 06/22/24 at 1735, For 3 doses, May repeat in 30 minutes as needed, up to 3 doses. $Given 06/22/2024 7:19 PM TAPER AND FLOATER 4 mg documented in this encounter Active and Recently Administered Medications Times are shown in TAPER AND FLOATER. Scheduled Medication Order 06/20/2024 06/21/2024 06/22/2024 diphenhydrAMINE [...] RN) documented in this encounter Care Teams Data Entry Technician Relationship Specialty Start Date End Date Veronica Joseph MD [address] [place] [address] PCP - General Family Medicine 06/18/24 Mor Ramsey Medical Student 04/03/24 Case Samuel MD [address] [place] [address], [address] [place] [address] Assigned Pediatric Specialist Provider 05/18/24 Juhi Benson, RN Specialty Associate Product Integrity Engineer Hematology & Oncology 05/29/24 documented as of this encounter
--- OUTSIDE RECORDS SUMMARY | 2024-06-25 14:33 | XMS_ITS | Encounter Summary ---
Author Organization [facility] Address [address] [place] [address]. [place] [address] Care Team Providers Care Rn Intensive Care Unit Name Role Phone No Ref-Primary, Physician Primary Care Provider Mor Ramsey Unavailable Unavailable Case Samuel MD Unavailable [phone] Juhi Benson RN Unavailable Unavailable Encounter Details [...] on file Legal Sex Female 8:25 AM ACTUARY Gender Identity Not on file Sexual Orientation Not on file documented as of this encounter Plan of Treatment Not on file documented as of this encounter Goals Goal Patient Goal Type Associated Problems Recent Progress Patient-Stated? Author Pain Management General On track( 025 12:40 PM ACTUARY) Yes Juhi Benson RN Note: Goal Statement: [...] on filedocumented in this encounter Care Teams Rn Intensive Care Unit Relationship Specialty Start Date End Date No Ref-Primary, Physician PCP - General 03/15/24 06/17/24 Mor Ramsey Medical Student 04/03/24 Case Samuel MD [address] [place] [address], [address] [place] [address] Assigned Pediatric Specialist Provider 05/18/24 Juhi Benson RN Specialty Foreman/Pile Driving And Erection Hematology & Oncology 05/29/24 documented as of this encounter
--- OUTSIDE RECORDS SUMMARY | 2024-06-25 14:33 | XMS_ITS | Encounter Summary ---
Author Organization [facility] Address [address] [place] [address] Care Team Providers Care Patient Registration Supervisor Name Role Phone No Ref-Primary, Physician Primary Care Provider Mor Ramsey Unavailable Unavailable Case Samuel MD Unavailable [phone] Juhi Benson RN Unavailable Unavailable Reason for Visit * Reason Onset Date Comments Refill Request 06/15/2024 Encounter Details Date Type Department Care Team (Late st Contact Info) Description 06/15/[address] [place] [address] Case Samuel MD [address] [place] [address], [address] [place], [place] [id number] Refill Request Social History Tobacco Use Types [...] on file Legal Sex Female 8:25 AM UTILITY WORKER Gender Identity Not on file Sexual [...] by whom: Dr. Case Samuel on 06/07/24 BELT MEAS[employer]ER Reviewed: no access Send to provider: Dr. Samuel and SOFIA ReynagaCC. ITY WORKER documented in this encounter Plan of Treatment Not on file documented as of this encounter Goals Goal Patient Goal Type Associated Problems Recent Progress Patient-Stated? Author Pain Management General On track( 025 12:40 PM UTILITY WORKER) Yes Juhi Benson, RN Note: Goal Statement: [...] crisis documented in this encounter Care Teams Patient Registration Supervisor Relationship Specialty Start Date End Date No Ref-Primary, Physician PCP - General 03/15/24 06/17/24 Mor Ramsey Medical Student 04/03/24 Case Samuel MD [address] [place] [address], [address] [place] [address] Assigned Pediatric Specialist Provider 05/18/24 Juhi Benson, RN Specialty Program Management Intern Hematology & Oncology 05/29/24 documented as of this encounter
--- OUTSIDE RECORDS SUMMARY | 2024-06-25 14:33 | XMS_ITS | Encounter Summary ---
Author Organization [facility] Address [address] [place] [address]. 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 Call member services at your health plan with any benefit or coverage questions. COUNSEL Reason for Visit * Reason Comments Sickle Cell Pain Crisis * Auth/Cert Specialty Diagnoses / Procedures Referred By Contkameron t Referred To Contact EMERGENCY MEDICINE Diagnoses Acute chest pain Sickle cell pain crisis (H) [facility] ED Emergency Department [address] [place] [address] Phone: tel: Referral ID Status Reason Start Date Expiration Date Visits Re quested Visits Authorized [id number] 1 1 Encounter Details Date Type Department Care Team (Latest Contact Info) Description 06/12/2024 6:38 PM IP COUNSEL - 06/15/2024 10:48 AM IP COUNSEL Hospital Encounter [facility] Emergency Department [address] [place] [phone] Abdelrahman Goddard MD [address] [place] [address] Andres Jain DO Duffy, Briar, MD [address] [facility] [address] [facility] [address] [place] [address] 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) [...] on file Legal Sex Female 8:25 AM IP COUNSEL Gender Identity Not on file Sexual Orientation Not on file documented as of this encounter Last Filed Vital Signs Vital Sign Reading Time Taken Comments Blood Pressure 99/64 06/15/2024 6:10 AM IP COUNSEL Pulse 75 06/15/2024 6:10 AM IP COUNSEL Temperature 36.7 C (98 F) 06/15/2024 6:10 AM IP COUNSEL Respiratory Rate 16 06/15/2024 6:10 AM IP COUNSEL Oxygen Saturation 100% 06/15/2024 6:10 AM IP COUNSEL Inhaled Oxygen Concentration - - Weight - - Height - - Body Mass Index - - documented in this encounter Discharge Summaries * Rl Elias MD - 06/15/2024 8:58 AM CST [facility] Discharge Summary - Medicine & Pediatrics Date of Admission: 06/12/2024 Date of Discharge: 06/15/2024 Discharging Provider: Dr Rl Elias, Dr German Hall Discharge Service: Medicine Service, [facility] TEAM 1 Discharge Diagnoses Acute sickle cell [...] 5 day course of antibiotics - Continue PARALEGAL INSTRUCTOR hydroxyurea - Continue PARALEGAL INSTRUCTOR folic acid - Continue albuterol inhaler QID given in the ED - Patient should follow up with her PCP upon discharge in 2-3 weeks - Patient should restart pain plan as taking at home with PO hydromorphone 2 mg Q6H PRN for pain upon discharge #Anxiety #Nausea - Continue PARALEGAL INSTRUCTOR Fluoxetine 10 mg daily Consultations This Hospital Stay HEMATOLOGY ADULT IP CONSULT CARE MANAGEMENT / SOCIAL WORK IP CONSULT Code Status Full Code The patient was discussed with Dr. Hall. MD Oliver LANGLEY [address] [place] [address] EMERGENCY DEPARTMENT [address] [facility] [id number] Physical Exam Vital Signs: Temp: 98 ??F [...] your primary care provider & your primary Water Softener Installer as indicated. Activity Your activity upon discharge: [...] Narrative EXAM: XR CHEST 2 VIEWS LOCATION: [facility] DATE: 06/12/2024 INDICATION: CP COMPARISON: 06/03/2024, [...] E-Prescribe naloxone (NARCAN) 4 MG/0.1ML nasal spray [place] 1 spray (4 mg) into one nostril [...] German Hall MD at 06/22/2024 12:17 PM IP COUNSEL COUNSEL COUNSEL Associated attestation - German Hall MD - 06/22/2024 12:17 PM IP COUNSEL Attestation: This patient has been seen and [...] 05/01/2024 naloxone (NARCAN) 4 MG/0.1ML nasal spray Clif[place] 1 spray (4 mg) into one nostril [...] Overall, I spent 35 minutes today (DOS) [id number] and/or coordinating care as documented above and specifically listed as below: --Reviewing documentation related to patient's history and this current admission available in [employer] --Review and clinical interpretation of pertinent laboratory test results and radiology reports from this admission --Discussion of the patient's case with the members of the Hematology Consult Team --Discussion with the patient --Documentation in the electronic health record COUNSEL * Rl Elias MD - 06/14/2024 7:08 [...] Service (when I saw the patient): 06/14/24 [facility] Progress Note - [facility] Date of Admission: [...] 7-9, most recent Hbg 8.8 on 06/07 PARALEGAL INSTRUCTOR. Hb.5 -> 6.4 -> 6.8 -> 6.9 Plan: - Blood cultures pending x2 - NGTD - CTM hemoglobin daily - Ordered Voltaren gel, lidocaine patches, and icy hot PRN - Continue Ceftriaxone and Azithromycin for ppx (06/12 -*), consider transition to PO this afternoon - Continue PARALEGAL INSTRUCTOR hydroxyurea - Continue PARALEGAL INSTRUCTOR folic acid - Continue IS - type and screen ordered, consented for blood on 06/13 - no indication for transfusion unless hemodynamically unstable - Hematology consulted, appreciate recs - Hydromorphone 2 mg IV Q2H scheduled--titrate within 24-48 hours - Maintenance LR - Transfusion not recommended at this time - albuterol inhaler q6h, zofran, benadryl, docusate, senna PRN #Anxiety #Nausea - Continue PARALEGAL INSTRUCTOR Fluoxetine - Benadryl PRN per Pain Plan [...] Carvajal, MS3 Medical Student Medicine Service, [facility] TEAM [address] [place] [address] Securely message with Voices (more info) Text page via [facility] Paging/Directory See signed in provider for up [...] German Hall MD at 06/19/2024 8:50 AM IP COUNSEL COUNSEL COUNSEL COUNSEL Associated attestation - German Hall MD - 06/19/2024 8:50 AM IP COUNSEL Attestation: This patient has been seen and [...] Service (when I saw the patient): 06/13/24 [facility] Progress Note - Medicine Service, [facility] TEAM 1 Date of Admission: 06/12/2024 Assessment [...] 7-9, most recent Hbg 8.8 on 06/07 PARALEGAL INSTRUCTOR. Hb.5 -> 6.4 Plan: -Blood cultures pending x2 -CTM hemoglobin daily -Continue Ceftriaxone and Azithromycin for ppx (06/12 -*) -Continue PARALEGAL INSTRUCTOR hydroxyurea -Continue PARALEGAL INSTRUCTOR folic acid - type and screen ordered, consented for blood - no indication for transfusion unless hemodynamic instability - Hematology consulted, appreciate recs -Hydromorphone 2 mg IV Q3H scheduled--titrate within 24-48 hours -Maintenance LR -Transfusion not recommended at this time - zofran, benadryl, docusate, senna PRN #Anxiety #Nausea -Continue PARALEGAL INSTRUCTOR Fluoxetine -Benadryl PRN per Pain Plan -Zofran [...] Carvajal, MS3 Medical Student Medicine Service, [facility] TEAM [address] [place] [address] Securely message with Voices (more info) Text page via [employer] Paging/Directory See signed in provider for up [...] Narrative EXAM: XR CHEST 2 VIEWS LOCATION: [facility] DATE: 06/12/2024 INDICATION: CP COMPARISON: 06/03/2024, [...] German Hall MD at 06/14/2024 8:25 AM IP COUNSEL COUNSEL COUNSEL Associated attestation - German Hall MD - 06/14/2024 8:25 AM IP COUNSEL Attestation: This patient has been seen and evaluated by me, German Hall MD. Discussed with the house staff team or resident(s) and agree with the findings and plan in this note. I have reviewed today's Medications, Vital Signs, and Labs. DOS 06/13 * Mary Flores MD - 06/12/2024 8:20 PM CST manager call center Hematology fellow note 29F Sickle [...] Flores MD MS Hematology fellow, PGY5 Pager: [phone] Cosigned by Kirstin Long MD at 06/13/2024 7:25 AM IP COUNSEL COUNSEL COUNSEL COUNSEL Associated attestation - Kirstin Long MD - 06/13/2024 7:25 AM IP COUNSEL Physician Attestation I discussed patient overnight with fellow construction job cost estimator. I agree with plan as outlined. I did not see thepatient on this date. Kirstin Long MD/PhD documented in this encounter H&P Notes * Laquita Kelley MD - 06/12/2024 9:37 PM CST [facility] History and Physical - Medicine Service, [facility] TEAM Date of Admission: 06/12/2024 Assessment & [...] of avascular necrosis of left hip -Continue PARALEGAL INSTRUCTOR hydroxyurea -Continue PARALEGAL INSTRUCTOR folic acid -Transfuse for Hb<7 #Stroke reported [...] Jain . Laquita Kelley MD Medicine Service, [facility] Securely message with Voices (more info) Text page via [facility] Paging/Directory See signed in provider for up [...] [facility] in [facility] Functional asplenia Gallstones Hb-SS disease without [...] 4 MG/0.1ML nasal spray No No Sig: Clifton 1 spray (4 mg) into one nostril [...] Andres Jain DO at 06/12/2024 10:27 PM IP COUNSEL COUNSEL COUNSEL COUNSEL COUNSEL Associated attestation - Andres Jain DO - 06/12/2024 10:27 PM IP COUNSEL Physician Attestation I saw this patient with [...] Communication Assessment Patient's communication style: spoken language (Bahamian or Bilingual) Cognitive Cognitive/Neuro/Behavioral: WDL Living Environment: [...] Depression: Not at risk (04/11/2024) Received from [employer] [facility] PHQ-2 PHQ-2 TOTAL SCORE: 1 [...] Social Connections: Socially Integrated (03/28/2024) Received from [employer] [facility] Social Connections Do you often feel lonely or isolated from those around you?: 0 Health Literacy: Not on file Functional Status: Prior to admission patient needed assistance: Dependent ADLs:: Independent Dependent IADLs:: Independent Mental Health Status: Mental Health Status: No Current Concerns Chemical Dependency Status: Chemical Dependency Status: No Current Concerns Values/Beliefs: Spiritual, Cultural Beliefs, Sabianism Practices, Values that affect care: no Discussed [...] Katheryn Carter RN, PHN, BSN Float Nurse Lead Advisor Covering for Unit ED Phone [phone] COUNSEL * Kirstin Long MD - 06/13/2024 10:17 AM CSTAssociated Order(s): HEMATOLOGY ADULT IP CONSULT Images from the original note were not included. 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 No pleural effusion. No pneumothorax. Borderline cardiac enlargement unchanged. Port anterior right chest wall with right IJ central venous catheter tip low SVC. Port anterior left chest wall with left IJ central venous catheter tip low SVC. COUNSEL documented in this encounter ED Notes * Juhi Crump RN - 06/12/2024 6:55 PM CST Bed: [facility] Expected date: Expected time: Means of arrival: Comments: SICK COUNSEL * Lebron Aponte RN - 06/12/2024 6:34 PM CST Pt ambulatory to triage with CC of sickle cell pain in the L upper anterior chest. Was seen for this at [facility] last night. Reports interventions at [facility] were helpful, however pain has returned. Patient reports taking 4mg po Dilaudid at 1500 with partial relief of pain but is still severe. Contacted convenience store manager and was instructed to come to [facility] EB. Reports SOB a little bit. It hurts to take a deep breath. Denies dizziness. Triage Assessment (Adult) Row Name 06/12/24 5383 Triage Assessment Airway WDL WDL Respiratory WDL [...] 5-->(V5) oriented Lester Coma Scale Score 15 COUNSEL * Abdelrahman Goddard MD - 06/12/2024 6:20 PM CST Images from the original note were not included. [facility] ([facility]) 06/12/24 ED PROVIDER NOTE History No chief [...] background: 29 yo F, recently moved from [place] Sickle Cell Disease History Primary Water Softener Installer/PROGRAM PARAPROFESSIONAL/PA: Lizzie Genotype: SS Acute Pain Crisis Treatment: 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, [facility] Functional asplenia Gallstones Hb-SS disease [...] & Data Procedures EKG Interpretation: Interpreted by Ojvanny Solheid Time reviewed: 18:40:00 Symptoms at time of EKG: chest pain Rhythm: normal sinus Rate: 94BPM [place]: Normal Ectopy: none Conduction: normal ST Segments/ [...] Rate 102 BPM Atrial Rate 102 BPM OK Interval 158 ms QRS Duration 78 ms QT 348 ms QTc 453 ms P [place] 39 degrees R AXIS 66 degrees T [place] 33 degrees Interpretation ECG Sinus tachycardia Nonspecific T wave abnormality Abnormal ECG When compared with ECG of 05-Jun-2024 11:40, No significant change was found Confirmed by SEE ED PROVIDER NOTE FOR, ECG INTERPRETATION ([id number]), legal editor SELMA GARRISON ([id number]) on 06/11/2024 9:05:27 PM Medications - No [...] documented by Jovanny Hernadez. Abdelrahman Goddard MD [facility] EMERGENCY DEPARTMENT 06/12/2024 Abdelrahman Goddard MD 06/12/242023 COUNSEL documented in this encounter Miscellaneous Notes * Plan of Care - Clay Avina RN - 06/15/2024 9:55 AM CST Goal Outcome Evaluation: Plan of Care Reviewed With: patient Overall Patient Progress: improving 4x A/O. VSS. RA. Independent. AVS reviewed, questions answered. Port de accessed with saline flush and heparin locked. COUNSEL * Plan of Care - Kathy Levy RN - 06/15/2024 6:22 AM CST Goal Outcome Evaluation: Plan of Care Reviewed With: patient Overall Patient Progress: improving Pt is alert anf oriented x4. VSS, on room air with no SOB noted. On pain management for sickle cellcrisis. Tolerating diet well with no n/v. L chest port infusing intermittent IV ABT. Voiding well. Last BM PARALEGAL INSTRUCTOR. Pt is up ad chandler. Will continue with plan of care. COUNSEL * Plan of Care - Clay Avina RN - 06/14/2024 5:02 PM CST Goal Outcome Evaluation: Plan of Care Reviewed With: patient Overall Patient Progress: improving 4x A/O. VSS. Independent. Pain controlled with schedule q2hr IV dilaudid. Tolerating regular diet. Voiding spontaneously. Had nausea in AM, relieved with Zofran. Port SL. COUNSEL * Pharmacy-Admission Medication History - Lorenza Valdes - 06/14/2024 11:19 AM CST [facility] Admission Medication History Admission medication history is complete. The information provided in this note is only as accurateas the sources available at the time of the update. Information Source(s): Patient and CareEverywhere/SureScripts via in-person Pertinent Information: Medication reconciliation completed at bedside with patient. Patient was a good historian of her medication names, doses, frequencies, and last doses. Changes made to PARALEGAL INSTRUCTOR medication list: Added: Epi-pen: patient has pen available, but has not used recently. Ibuprofen: OTC product used PRN for pain. Benadryl: OTC product used PRN for itching due to hydromorphone. Deleted: None Changed: None Allergies reviewed with patient and updates made in EHR: yes Medication History Completed By: Lorenza Valdes 06/14/2024 11:19 AM PARALEGAL INSTRUCTOR Med List Medication Sig Last Dose/Taking diphenhydrAMINE [...] Morning naloxone (NARCAN) 4 MG/0.1ML nasal spray Clif[place] 1 spray (4 mg) into one nostril alternating nostrilsas needed for opioid reversal (for opiate overdose if not breathing and unconscious. have your family member watch video on how to use/read information sheet). every 2-3 minutes until assistance arrives Taking As Needed Cosigned by Terrell Fernandez RPH at 06/15/2024 10:33 AM IP COUNSEL COUNSEL COUNSEL Associated attestation - Terrell Fernandez RPH - 06/15/2024 10:33 AM IP COUNSEL I have read and agree with the student's note. Terrell Fernandez, PGY-1 Occupational Health And Safety Adviser * Provider Notification - Kiki Caal RN - 06/13/2024 7:27 PM IP COUNSEL Notified providers Nivia Carvajal, Laquita Kelley and Rl Elias of critical Hgb 6.8 at 1920. No new orders COUNSEL * Plan of Care - Katheryn Carter RN - 06/13/2024 12:44 PM CST Goal Outcome Evaluation: Plan of Care Reviewed With: patient Overall Patient Progress: improvingOverall Patient Progress: improving Outcome Evaluation: Plan: TBD Katheryn Carter RN, PHN, BSN Float Nurse Lead Advisor Covering for Unit ED Phone [phone] COUNSEL * Plan of Care - Shauna Cuadra [...] with POC. Notify primary team with changes. 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 Author Pain Management General On track( 025 12:40 PM IP COUNSEL) Yes Juhi Benson RN Note: Goal Statement: [...] PLATELETS AND DIFFERENTIAL STAT 06/15/2024 6:09 AM IP COUNSEL CBC WITH PLATELETS & DIFFERENTIAL STAT 06/15/2024 6:09 AM IP COUNSEL BASIC METABOLIC PANEL STAT 06/15/2024 6:09 AM IP COUNSEL XR CHEST PORT 1 VIEW STAT 06/14/2024 8:46 AM IP COUNSEL BASIC METABOLIC PANEL STAT 06/14/2024 7:08 AM IP COUNSEL CBC WITH PLATELETS STAT 06/14/2024 7: 08 AM IP COUNSEL CBC WITH PLATELETS STAT 06/13/2024 6: 32 PM IP COUNSEL RBC AND PLATELET MORPHOLOGY STAT 06/13/2024 6:00 AM IP COUNSEL CBC WITH PLATELETS AND DIFFERENTIAL STAT 06/13/2024 6:00 AM IP COUNSEL CBC WITH PLATELETS & DIFFERENTIAL STAT 06/13/2024 6:00 AM IP COUNSEL BASIC METABOLIC PANEL STAT 06/13/2024 5:59 AM IP COUNSEL RESPIRATORY PANEL PCR STAT 06/12/2024 9:34 PM IP COUNSEL BLOOD CULTURE STAT 06/12/2024 8:46 PM IP COUNSEL BLOOD CULTURE STAT 06/12/2024 8:46 PM IP COUNSEL XR CHEST 2 VIEWS STAT 06/12/2024 7:38 PM IP COUNSEL RBC AND PLATELET MORPHOLOGY STAT 06/12/2024 7:17 PM IP COUNSEL CBC WITH PLATELETS AND DIFFERENTIAL STAT 06/12/2024 7:17 PM IP COUNSEL TYPE AND SCREEN, ADULT Routine 06/12/2024 7:17 PM IP COUNSEL TROPONIN T, HIGH SENSITIVITY STAT 06/12/2024 7:17 PM IP COUNSEL CBC WITH PLATELETS & DIFFERENTIAL STAT 06/12/2024 7:17 PM IP COUNSEL INR STAT 06/12/2024 7:17 PM IP COUNSEL BLOOD GAS VENOUS STAT 06/12/2024 7:17 PM IP COUNSEL ABO/RH TYPE AND SCREEN Add-On 06/12/2024 7:17 PM IP COUNSEL BASIC METABOLIC PANEL STAT 06/12/2024 7:17 PM IP COUNSEL EKG 12-LEAD, TRACING ONLY STAT 06/12/2024 6:37 PM IP COUNSEL documented in this encounter Results * (ABNORMAL) CBC with platelets and differential (06/15/2024 6:09 AM IP COUNSEL) Pathologist [facility] WBC Count 11.8(H) 4.0 - 11.0 10e3/uL 06/15/2024 6:36 AM IP COUNSEL [facility] RBC Count 2.27(L) 3.80 - 5.20 10e6/uL 06/15/2024 6:36 AM IP COUNSEL [facility] Hemoglobin 7.2(L) 11.7 - 15.7 g/dL 06/15/2024 6:36 AM IP COUNSEL [facility] Hematocrit 20.4(L) 35.0 - 47.0 % 06/15/2024 6:36 AM IP COUNSEL [facility] MCV 90 78 - 100 fL 06/15/2024 6:36 AM IP COUNSEL [facility] MCH 31.7 26.5 - 33.0 pg 06/15/2024 6:36 AM IP COUNSEL [facility] MCHC 35.3 31.5 - 36.5 g/dL 06/15/2024 6:36 AM IP COUNSEL [facility] RDW 19.0(H) 10.0 - 15.0 % 06/15/2024 6:36 AM IP COUNSEL [facility] Platelet Count 500(H) 150 - 450 10e3/uL 06/15/2024 6:36 AM IP COUNSEL [facility] % Neutrophils 54 % 06/15/2024 6:36 AM IP COUNSEL [facility] % Lymphocytes 31 % 06/15/2024 6:36 AM IP COUNSEL [facility] % Monocytes 9 % 06/15/2024 6:36 AM IP COUNSEL [facility] % Eosinophils 5 % 06/15/2024 6:36 AM IP COUNSEL [facility] % Basophils 2 % 06/15/2024 6:36 AM IP COUNSEL [facility] % Immature Granulocytes 1 % 06/15/2024 6:36 AM IP COUNSEL [facility] NRBCs per 100 WBC 2(H) <1 /100 025 6:36 AM IP COUNSEL [facility] Absolute Neutrophils 6.3 1.6 - 8.3 10e3/uL 06/15/2024 6:36 AM IP COUNSEL [facility] Absolute Lymphocytes 3.6 0.8 - 5.3 10e3/uL 06/15/2024 6:36 AM IP COUNSEL [facility] Absolute Monocytes 1.0 0.0 - 1.3 10e3/uL 06/15/2024 6:36 AM IP COUNSEL [facility] Absolute Eosinophils 0.6 0.0 - 0.7 10e3/uL 06/15/2024 6:36 AM IP COUNSEL [facility] Absolute Basophils 0.2 0.0 - 0.2 10e3/uL 06/15/2024 6:36 AM IP COUNSEL [facility] Absolute Immature Granulocytes 0.1 <=0.4 10e3/uL 06/15/2024 6:36 AM IP COUNSEL [facility] Absolute NRBCs 0.2 10e3/uL 06/15/2024 6:36 AM IP COUNSEL [facility] Blood BLOOD SPECIMEN / Unknown IVAD (Port) / Unknown 06/15/2024 6:09 AM IP COUNSEL 06/15/2024 6:18 AM IP COUNSEL us Rl Elias MD LAB - BLOOD ORDER SYD Final Result [facility] [place] [facility] [address] [facility] [place] [address] * (ABNORMAL) Basic metabolic panel (06/15/2024 6:09 AM IP COUNSEL) Sodium 136 135 - 145 mmol/L 06/15/2024 7:13 AM IP COUNSEL [facility] Potassium 4.4 3.4 - 5.3 mmol/L 06/15/2024 7:13 AM IP COUNSEL [facility] Chloride 104 98 - 107 mmol/L 06/15/2024 7:13 AM IP COUNSEL [facility] Carbon Dioxide (CO2) 21(L) 22 - 29 mmol/L 06/15/2024 7:13 AM IP COUNSEL [facility] Anion Gap 11 7 - 15 mmol/L 06/15/2024 7:13 AM IP COUNSEL [facility] Urea Nitrogen 10.1 6.0 - 20.0 mg/dL 06/15/2024 7:13 AM IP COUNSEL [facility] Creatinine 0.65 0.51 - 0.95 mg/dL 06/15/2024 7:13 AM IP COUNSEL [facility] GFR Estimate >90 >60 mL/min/1.7 3m2 06/15/2024 7:13 AM IP COUNSEL [facility] Comment:eGFR calculated us2020 CKD-EPI equation. Calcium 8.9 8.8 - 10.4 mg/dL 06/15/2024 7:13 AM IP COUNSEL [facility] Glucose 104(H) 70 - 99 mg/dL 06/15/2024 7:13 AM IP COUNSEL [facility] Blood BLOOD SPECIMEN / Unknown IVAD (Port) / Unknown 06/15/2024 6:09 AM IP COUNSEL 06/15/2024 6:16 AM IP COUNSEL Rl Elias MD LAB - BLOOD ORDER SYD Final Result [facility] [place] [facility] [address] [facility] [phone] * XR Chest Port 1 View (06/14/2024 8:46 AM IP COUNSEL) Anatomical Region Laterality Modality Chest Digital Radiogra phy Impressions 06/14/2024 8:59 AM IP COUNSEL Impression: Further increase in ill-defined opacity projecting over the right lower lung concerning for pneumonia. MARIO ALBERTO BLACKWOOD MD Narrative 06/14/2024 8:59 AM IP COUNSEL Exam: XR CHEST PORT 1 VIEW, 06/14/2024 [...] (ABNORMAL) CBC with platelets (06/14/2024 7:08 AM IP COUNSEL) WBC Count 13.4(H) 4.0 - 11.0 10e3/uL 06/14/2024 7:46 AM IP COUNSEL [facility] RBC Count 2.30(L) 3.80 - 5.20 10e6/uL 06/14/2024 7:46 AM IP COUNSEL [facility] Hemoglobin 6.9(LL) 11.7 - 15.7 g/dL 06/14/2024 7:46 AM IP COUNSEL [facility] Hematocrit 21.6(L) 35.0 - 47.0 % 06/14/2024 7:46 AM IP COUNSEL [facility] MCV 94 78 - 100 fL 06/14/2024 7:46 AM IP COUNSEL [facility] MCH 30.0 26.5 - 33.0 pg 06/14/2024 7:46 AM IP COUNSEL [facility] MCHC 31.9 31.5 - 36.5 g/dL 06/14/2024 7:46 AM IP COUNSEL [facility] RDW 19.4(H) 10.0 - 15.0 % 06/14/2024 7:46 AM IP COUNSEL [facility] Platelet Count 501(H) 150 - 450 10e3/uL 06/14/2024 7:46 AM IP COUNSEL [facility] Blood BLOOD SPECIMEN / Unknown Venipuncture / Unknown 06/14/2024 7:08 AM IP COUNSEL 06/14/2024 7:22 AM IP COUNSEL us Rl Elias MD LAB - BLOOD ORDER SYD Final Result [facility] [place] [facility] [address] [facility], [address] [address] * (ABNORMAL) Basic metabolic panel (06/14/2024 7:08 AM IP COUNSEL) Sodium 136 135 - 145 mmol/L 06/14/2024 7:57 AM IP COUNSEL [facility] Potassium 4.2 3.4 - 5.3 mmol/L 06/14/2024 7:57 AM IP COUNSEL [facility] Chloride 107 98 - 107 mmol/L 06/14/2024 7:57 AM IP COUNSEL [facility] Carbon Dioxide (CO2) 20(L) 22 - 29 mmol/L 06/14/2024 7:57 AM IP COUNSEL [facility] Anion Gap 9 7 - 15 mmol/L 06/14/2024 7:57 AM IP COUNSEL [facility] Urea Nitrogen 6.5 6.0 - 20.0 mg/dL 06/14/2024 7:57 AM IP COUNSEL [facility] Creatinine 0.71 0.51 - 0.95 mg/dL 06/14/2024 7:57 AM IP COUNSEL [facility] GFR Estimate >90 >60 mL/min/1.7 3m2 06/14/2024 7:57 AM IP COUNSEL [facility] Comment:eGFR calculated us2020 CKD-EPI equation. Calcium 8.9 8.8 - 10.4 mg/dL 06/14/2024 7:57 AM IP COUNSEL [facility] Glucose 92 70 - 99 mg/dL 06/14/2024 7:57 AM IP COUNSEL [facility] Blood BLOOD SPECIMEN / Unknown Venipuncture / Unknown 06/14/2024 7:08 AM IP COUNSEL 06/14/2024 7:22 AM IP COUNSEL Rl Elias MD LAB - BLOOD ORDER SYD Final Result [facility] [place] [facility] [address] [facility], [address] [place] [address] * (ABNORMAL) CBC with platelets (06/13/2024 6:32 PM IP COUNSEL) [facility] WBC Count 15.3(H) 4.0 - 11.0 10e3/uL 06/13/2024 7:10 PM IP COUNSEL [facility] RBC Count 2.21(L) 3.80 - 5.20 10e6/uL 06/13/2024 7:10 PM IP COUNSEL [facility] Hemoglobin 6.8(LL) 11.7 - 15.7 g/dL 06/13/2024 7:10 PM IP COUNSEL [facility] Hematocrit 20.8(L) 35.0 - 47.0 % 06/13/2024 7:10 PM IP COUNSEL [facility] MCV 94 78 - 100 fL 06/13/2024 7:10 PM IP COUNSEL [facility] MCH 30.8 26.5 - 33.0 pg 06/13/2024 7:10 PM IP COUNSEL [facility] MCHC 32.7 31.5 - 36.5 g/dL 06/13/2024 7:10 PM IP COUNSEL [facility] RDW 19.6(H) 10.0 - 15.0 % 06/13/2024 7:10 PM IP COUNSEL [facility] Platelet Count 495(H) 150 - 450 10e3/uL 06/13/2024 7:10 PM IP COUNSEL [facility] Blood CENTRAL VENOUS CATHETER / Unknown VAD(CVC, PICC) / Unknown 06/13/2024 6:32 PM IP COUNSEL 06/13/2024 6:52 PM IP COUNSEL us Rl Elias MD LAB - BLOOD ORDER SYD Final Result [facility] [place] [facility] [address] [facility], [address] [place] [address] * (ABNORMAL) RBC and Platelet Morphology (06/13/2024 6:00 AM IP COUNSEL) [facility] RBC Morphology Confirmed RBC Indices 06/13/2024 3:45 PM IP COUNSEL [facility] Platelet Assessment Automated Count Confirmed. Platelet morphology is normal. Automated Count Confirmed. Platelet morphology is normal. 06/13/2024 3:45 PM IP COUNSEL [facility] Polychromasia Moderate(A) None Seen 06/13/2024 3:45 PM IP COUNSEL [facility] Sickle Cells Moderate(A) None Seen 06/13/2024 3:45 PM IP COUNSEL [facility] Target Cells Moderate(A) None Seen 06/13/2024 3:45 PM IP COUNSEL [facility] Pathologist Review Comments (Blood) Sickle shaped red blood cells are present compatible with patient's history of sickle cell disease. Ziegler Gerald bodies are present compatible with hyposplenic blood picture. There is increased lymphocytes; however, the morphology of lymphocytes is polymorphous. Follow up CBC, diff for resolution of this findings is recommended. Danny Martinez MD on 06/13/2024 at 3:44 PM 06/13/2024 3:45 PM IP COUNSEL [facility] Comment:This is an appended report. These results have been appended to a previously final verified report. Blood VENOUS LINE / Unknown IVAD (Port) / Unknown 06/13/2024 6:00 AM IP COUNSEL 06/13/2024 6:16 AM IP COUNSEL us Laquita Kelley MD LAB - BLOOD ORDERABLES Edited R esult - Final [facility] [address] [facility], [address] [address] [place] [facility] [address] [facility], [address] [phone] * (ABNORMAL) CBC with platelets and differential (06/13/2024 6:00 AM IP COUNSEL) WBC Count 17.0(H) 4.0 - 11.0 10e3/uL 06/13/2024 9:51 AM IP COUNSEL [facility] RBC Count 2.11(L) 3.80 - 5.20 10e6/uL 06/13/2024 9:51 AM IP COUNSEL [facility] Hemoglobin 6.4(LL) 11.7 - 15.7 g/dL 06/13/2024 9:51 AM IP COUNSEL [facility] Hematocrit 20.3(L) 35.0 - 47.0 % 06/13/2024 9:51 AM IP COUNSEL [facility] MCV 96 78 - 100 fL 06/13/2024 9:51 AM IP COUNSEL [facility] MCH 30.3 26.5 - 33.0 pg 06/13/2024 9:51 AM IP COUNSEL [facility] MCHC 31.5 31.5 - 36.5 g/dL 06/13/2024 9:51 AM IP COUNSEL [facility] RDW 19.8(H) 10.0 - 15.0 % 06/13/2024 9:51 AM IP COUNSEL [facility] Platelet Count 458(H) 150 - 450 10e3/uL 06/13/2024 9:51 AM IP COUNSEL [facility] % Neutrophils 40 % 06/13/2024 9:51 AM IP COUNSEL [facility] % Lymphocytes 42 % 06/13/2024 9:51 AM IP COUNSEL [facility] % Monocytes 13 % 06/13/2024 9:51 AM IP COUNSEL [facility] % Eosinophils 3 % 06/13/2024 9:51 AM IP COUNSEL [facility] % Basophils 1 % 06/13/2024 9:51 AM IP COUNSEL [facility] % Immature Granulocytes 1 % 06/13/2024 9:51 AM IP COUNSEL [facility] NRBCs per 100 WBC 0 <1 /100 025 9:51 AM IP COUNSEL [facility] Absolute Neutrophils 6.7 1.6 - 8.3 10e3/uL 06/13/2024 9:51 AM IP COUNSEL [facility] Absolute Lymphocytes 7.2(H) 0.8 - 5.3 10e3/uL 06/13/2024 9:51 AM IP COUNSEL [facility] Absolute Monocytes 2.2(H) 0.0 - 1.3 10e3/uL 06/13/2024 9:51 AM IP COUNSEL [facility] Absolute Eosinophils 0.5 0.0 - 0.7 10e3/uL 06/13/2024 9:51 AM IP COUNSEL [facility] Absolute Basophils 0.2 0.0 - 0.2 10e3/uL 06/13/2024 9:51 AM IP COUNSEL [facility] Absolute Immature Granulocytes 0.1 <=0.4 10e3/uL 06/13/2024 9:51 AM IP COUNSEL [facility] Absolute NRBCs 0.1 10e3/uL 06/13/2024 9:51 AM IP COUNSEL [facility] Blood VENOUS LINE / Unknown IVAD (Port) / Unknown 06/13/2024 6:00 AM IP COUNSEL 06/13/2024 6:16 AM IP COUNSEL Narrative [facility] - 06/13/2024 9:51 AM IP COUNSEL Sent for review by Pathologist. See Pathologist comments after review. Tech Comments Patient Diagnosis: Sickle Cell crisis Reason for Sending: absolute lymphocyte > 5.4 Laquita Kelley MD LAB - BLOOD ORDERABLES Final Re sult [facility] Specialty Lab [address] [facility], [address] [phone] [place] [facility] [address] [facility], [address] * (ABNORMAL) Basic metabolic panel (06/13/2024 5:59 AM IP COUNSEL) Sodium 135 135 - 145 mmol/L 06/13/2024 6:45 AM IP COUNSEL [facility] Potassium 4.3 3.4 - 5.3 mmol/L 06/13/2024 6:45 AM IP COUNSEL [facility] Chloride 105 98 - 107 mmol/L 06/13/2024 6:45 AM IP COUNSEL [facility] Carbon Dioxide (CO2) 21(L) 22 - 29 mmol/L 06/13/2024 6:45 AM IP COUNSEL [facility] Anion Gap 9 7 - 15 mmol/L 06/13/2024 6:45 AM IP COUNSEL [facility] Urea Nitrogen 4.9(L) 6.0 - 20.0 mg/dL 06/13/2024 6:45 AM IP COUNSEL [facility] Creatinine 0.70 0.51 - 0.95 mg/dL 06/13/2024 6:45 AM IP COUNSEL [facility] GFR Estimate >90 >60 mL/min/1.7 3m2 06/13/2024 6:45 AM IP COUNSEL [facility] Comment:eGFR calculated us2020 CKD-EPI equation. Calcium 8.7(L) 8.8 - 10.4 mg/dL 06/13/2024 6:45 AM IP COUNSEL [facility] Glucose 100(H) 70 - 99 mg/dL 06/13/2024 6:45 AM IP COUNSEL [facility] Blood VENOUS LINE / Unknown IVAD (Port) / Unknown 06/13/2024 5:59 AM IP COUNSEL 06/13/2024 6:16 AM IP COUNSEL us Laquita Kelley MD LAB - BLOOD ORDERABLES Final Re sult [facility] [place] [facility] [address] [facility], [address] [place] [address] * Respiratory Panel PCR (06/12/2024 9:34 PM IP COUNSEL) Adenovirus Not Detected Not Detected 06/12/2024 11:53 PM IP COUNSEL [facility] Coronavirus Not Detected Not Detected 06/12/2024 11:53 PM IP COUNSEL [facility] Comment:This test detects Co ronavirus 229E, HKU1, NL63 and OC43 but does not distinguish between them. It does not detect MERS ( Respiratory Syndrome), SARS (Severe Acute Respiratory Syndrome) or 2019-nCoV (Novel 2019) Coronavirus. Human Metapneumovirus Not Detected Not Detected 06/12/2024 11:53 PM IP COUNSEL [facility] Human Rhin/Enterovirus Not Detected Not Detected 06/12/2024 11:53 PM IP COUNSEL [facility] Influenza A Not Detected Not Detected 06/12/2024 11:53 PM IP COUNSEL [facility] Influenza A, H1 Not Detected Not Detected 06/12/2024 11:53 PM IP COUNSEL [facility] Influenza A 2009 H1N1 Not Detected Not Detected 06/12/2024 11:53 PM IP COUNSEL [facility] Influenza A, H3 Not Detected Not Detected 06/12/2024 11:53 PM IP COUNSEL [facility] Influenza B Not Detected Not Detected 06/12/2024 11:53 PM IP COUNSEL [facility] Parainfluenza Virus 1 Not Detected Not Detected 06/12/2024 11:53 PM IP COUNSEL [facility] Parainfluenza Virus 2 Not Detected Not Detected 06/12/2024 11:53 PM IP COUNSEL [facility] Parainfluenza Virus 3 Not Detected Not Detected 06/12/2024 11:53 PM IP COUNSEL [facility] Parainfluenza Virus 4 Not Detected Not Detected 06/12/2024 11:53 PM IP COUNSEL [facility] Respiratory Syncytial Virus A Not Detected Not Detected 06/12/2024 11:53 PM IP COUNSEL [facility] Respiratory Syncytial Virus B Not Detected Not Detected 06/12/2024 11:53 PM IP COUNSEL [facility] Chlamydia Pneumoniae Not Detected Not Detected 06/12/2024 11:53 PM IP COUNSEL [facility] Mycoplasma Pneumoniae Not Detected Not Detected 06/12/2024 11:53 PM IP COUNSEL [facility] Swab NASOPHARYNGEAL STRUCTURE / Unknown Non-blood Collection / Unknown 06/12/2024 9:34 PM IP COUNSEL 06/12/2024 9:47 PM IP COUNSEL Narrative [facility] - 06/12/2024 11:53 PM IP COUNSEL The ePlex Respiratory Panel is a qualitative nucleic acid, multiplex, in vitro diagnostic test for the simultaneous detection and identification of multiple respiratory viral and bacterial nucleic acids in nasopharyngeal swabs collected in viral transport media from individual exhibiting signs and symptoms of respiratory infection. The assay has received FDA approval for the testing of nasopharyngeal (PROGRAM PARAPROFESSIONAL) swabs only. This test is used for clinical purposes and should not be regarded as investigational or for research. This laboratory is certified under the Clinical Laboratory Improvement Amendments of 1988 (CLIA-88) as qualified to perform high complexity clinical laboratory testing. Abdelrahman Goddard MD LAB - MICRO GENERAL ORDERABLES Final Result [facility] Inf. Diseases Diag. Lab [address] [facility], [address] [place] [phone] * Blood Culture Peripheral Blood (06/12/2024 8:46 PM IP COUNSEL) Culture No Growth 06/17/2024 9:31 PM IP COUNSEL [facility] Blood BLOOD SPECIMEN / Unknown Venipuncture / Unknown 06/12/2024 8:46 PM IP COUNSEL 06/12/2024 8:53 PM IP COUNSEL Narrative [facility] - 06/17/2024 9:31 PM IP COUNSEL Only an Aerobic Blood Culture Bottle was collected, interpret results with caution. us Abdelrahman Goddard MD LAB - MICRO GENERAL ORDERABLES Final Result [facility] Inf. Diseases Diag. Lab [address] [facility], [address] * Blood Culture Peripheral Blood (06/12/2024 8:46 PM IP COUNSEL) Culture No Growth 06/17/2024 9:31 PM IP COUNSEL [facility] Blood BLOOD SPECIMEN / Unknown Venipuncture / Unknown 06/12/2024 8:46 PM IP COUNSEL 06/12/2024 8:53 PM IP COUNSEL us Abdelrahman Goddard MD LAB - MICRO GENERAL ORDERABLES Final Result Performing Organization Address City/[facility]/ZIP Co de Phone Number [facility] Inf. Diseases Diag. Lab [address] [facility], Room [address] * XR Chest 2 Views (06/12/2024 7:38 PM IP COUNSEL) Anatomical Region Laterality Modality Chest Computed Radiogr aphy 06/12/2024 7:38 PM IP COUNSEL Impressions 06/12/2024 7:42 PM IP COUNSEL IMPRESSION: A few faint peripheral reticulonodular opacities in the mid and lower lungs again seen. Lungs otherwise clear. No pleural effusion. No pneumothorax. Borderline cardiac enlargement unchanged. Port anterior right chest wall with right IJ central venous catheter tip low SVC. Port anterior left chest wall with left IJ central venous catheter tip low SVC. Narrative 06/12/2024 7:42 PM IP COUNSEL EXAM: XR CHEST 2 VIEWS LOCATION: [facility] DATE: 06/12/2024 INDICATION: CP COMPARISON: 06/03/2024, 05/27/2024 Procedure Note Surendra Hou MD - 06/12/2024 EXAM: XR CHEST 2 VIEWS LOCATION: [facility] DATE: 06/12/2024 INDICATION: CP COMPARISON: 06/03/2024, [...] Adult Type and Screen (06/12/2024 7:17 PM IP COUNSEL) Pathologist [facility] ABO/RH(D) A POS 06/13/2024 9:17 AM IP COUNSEL [facility] Antibody Screen Negative Negative 06/13/2024 9:17 AM IP COUNSEL [facility] Comment:Current antibody scr een is negative. Patient has a history of antibody(ies). A delay in compatible red blood cells may occur. SPECIMEN EXPIRATION DATE [id number] 06/13/2024 9:17 AM IP COUNSEL [facility] Blood BLOOD SPECIMEN / Unknown Venipuncture / Unknown 06/12/2024 7:17 PM IP COUNSEL 06/12/2024 7:32 PM IP COUNSEL Carmen Aviles PA-C LAB - BLOOD BANK TEST ORDER Final Result BLOOD BANK [address] [place] [address] * (ABNORMAL) RBC and Platelet Morphology (06/12/2024 7:17 PM IP COUNSEL) Pathologist [facility] RBC Morphology Confirmed RBC Indices 06/12/2024 8:57 PM IP COUNSEL [facility] Platelet Assessment Automated Count Confirmed. Platelet morphology is normal. Automated Count Confirmed. Platelet morphology is normal. 06/12/2024 8:57 PM IP COUNSEL [facility] Polychromasia Slight(A) None Seen 06/12/2024 8:57 PM IP COUNSEL [facility] Sickle Cells Moderate(A) None Seen 06/12/2024 8:57 PM IP COUNSEL [facility] Target Cells Moderate(A) None Seen 06/12/2024 8:57 PM IP COUNSEL [facility] Blood BLOOD SPECIMEN / Unknown Venipuncture / Unknown 06/12/2024 7:17 PM IP COUNSEL 06/12/2024 7:32 PM IP COUNSEL us Abdelrahman Goddard MD LAB - BLOOD ORDERABLES Final R esult [facility] [place] [facility] [address] [facility], [address] [phone] * (ABNORMAL) CBC with platelets and differential (06/12/2024 7:17 PM IP COUNSEL) Pathologist [facility] WBC Count 12.5(H) 4.0 - 11.0 10e3/uL 06/12/2024 7:54 PM IP COUNSEL [facility] RBC Count 2.44(L) 3.80 - 5.20 10e6/uL 06/12/2024 7:54 PM IP COUNSEL [facility] Hemoglobin 7.5(L) 11.7 - 15.7 g/dL 06/12/2024 7:54 PM IP COUNSEL [facility] Hematocrit 22.2(L) 35.0 - 47.0 % 06/12/2024 7:54 PM IP COUNSEL [facility] MCV 91 78 - 100 fL 06/12/2024 7:54 PM IP COUNSEL [facility] MCH 30.7 26.5 - 33.0 pg 06/12/2024 7:54 PM IP COUNSEL [facility] MCHC 33.8 31.5 - 36.5 g/dL 06/12/2024 7:54 PM IP COUNSEL [facility] RDW 19.5(H) 10.0 - 15.0 % 06/12/2024 7:54 PM IP COUNSEL [facility] Platelet Count 542(H) 150 - 450 10e3/uL 06/12/2024 7:54 PM IP COUNSEL [facility] % Neutrophils 57 % 06/12/2024 7:54 PM IP COUNSEL [facility] % Lymphocytes 24 % 06/12/2024 7:54 PM IP COUNSEL [facility] % Monocytes 16 % 06/12/2024 7:54 PM IP COUNSEL [facility] % Eosinophils 1 % 06/12/2024 7:54 PM IP COUNSEL [facility] % Basophils 1 % 06/12/2024 7:54 PM IP COUNSEL [facility] % Immature Granulocytes 0 % 06/12/2024 7:54 PM IP COUNSEL [facility] NRBCs per 100 WBC 1(H) <1 /100 025 7:54 PM IP COUNSEL [facility] Absolute Neutrophils 7.1 1.6 - 8.3 10e3/uL 06/12/2024 7:54 PM IP COUNSEL [facility] Absolute Lymphocytes 3.0 0.8 - 5.3 10e3/uL 06/12/2024 7:54 PM IP COUNSEL [facility] Absolute Monocytes 2.0(H) 0.0 - 1.3 10e3/uL 06/12/2024 7:54 PM IP COUNSEL [facility] Absolute Eosinophils 0.2 0.0 - 0.7 10e3/uL 06/12/2024 7:54 PM IP COUNSEL [facility] Absolute Basophils 0.2 0.0 - 0.2 10e3/uL 06/12/2024 7:54 PM IP COUNSEL [facility] Absolute Immature Granulocytes 0.1 <=0.4 10e3/uL 06/12/2024 7:54 PM IP COUNSEL [facility] Absolute NRBCs 0.1 10e3/uL 06/12/2024 7:54 PM IP COUNSEL [facility] Blood BLOOD SPECIMEN / Unknown Venipuncture / Unknown 06/12/2024 7:17 PM IP COUNSEL 06/12/2024 7:32 PM IP COUNSEL us Abdelrahman Goddard MD LAB - BLOOD ORDERABLES Final R esult [facility] [place] [facility] [address] [facility], [address] [phone] * (ABNORMAL) Blood gas venous (06/12/2024 7:17 PM IP COUNSEL) pH Venous 7.38 7.32 - 7.43 06/12/2024 7:40 PM IP COUNSEL [facility] pCO2 Venous 42 40 - 50 mm Hg 06/12/2024 7:40 PM IP COUNSEL [facility] pO2 Venous 35 25 - 47 mm Hg 06/12/2024 7:40 PM IP COUNSEL [facility] Bicarbonate Venous 24 21 - 28 mmol/L 06/12/2024 7:40 PM IP COUNSEL [facility] Base Excess/Deficit Venous -0.9 -3.0 - 3.0 mmol/L 06/12/2024 7:40 PM IP COUNSEL [facility] FIO2 21 JARET 06/12/2024 7:40 PM IP COUNSEL [facility] Oxyhemoglobin Venous 61(L) 70 - 75 % 06/12/2024 7:40 PM IP COUNSEL [facility] O2 Sat, Venous 63.9(L) 70.0 - 75.0 % 06/12/2024 7:40 PM IP COUNSEL [facility] Blood, venous VENOUS LINE / Unknown Venipuncture / Unknown 06/12/2024 7:17 PM IP COUNSEL 06/12/2024 7:30 PM IP COUNSEL Narrative [facility] - 06/12/2024 7:40 PM IP COUNSEL In healthy individuals, oxyhemoglobin (O2Hb) and oxygen saturation (SO2) are approximately equal. In the presence of dyshemoglobins, oxyhemoglobin can be considerably lower than oxygen saturation. us Abdelrahman Goddard MD LAB - BLOOD ORDERABLES Final R esult [facility] Core Lab [address] [facility], [address] [phone] * Troponin T, High Sensitivity (06/12/2024 7:17 PM IP COUNSEL) Pathologist [facility] Troponin T, High Sensitivity <6 <=14 ng/L 06/12/2024 8:03 PM IP COUNSEL [facility] Comment: Either a High Sensitivity [...] Unknown Venipuncture / Unknown 06/12/2024 7:17 PM IP COUNSEL 06/12/2024 7:32 PM IP COUNSEL us Abdelrahman Goddard MD LAB - BLOOD ORDERABLES Final R esult [facility] [place] Core Lab [address] [facility] [phone] * (ABNORMAL) Basic metabolic panel (06/12/2024 7:17 PM IP COUNSEL) Sodium 139 135 - 145 mmol/L 06/12/2024 8:03 PM IP COUNSEL [facility] Potassium 4.3 3.4 - 5.3 mmol/L 06/12/2024 8:03 PM IP COUNSEL [facility] Chloride 109(H) 98 - 107 mmol/L 06/12/2024 8:03 PM IP COUNSEL [facility] Carbon Dioxide (CO2) 21(L) 22 - 29 mmol/L 06/12/2024 8:03 PM IP COUNSEL [facility] Anion Gap 9 7 - 15 mmol/L 06/12/2024 8:03 PM IP COUNSEL [facility] Urea Nitrogen 5.9(L) 6.0 - 20.0 mg/dL 06/12/2024 8:03 PM IP COUNSEL [facility] Creatinine 0.61 0.51 - 0.95 mg/dL 06/12/2024 8:03 PM IP COUNSEL [facility] GFR Estimate >90 >60 mL/min/1.7 3m2 06/12/2024 8:03 PM IP COUNSEL [facility] Comment:eGFR calculated 2020 CKD-EPI equation. Calcium 9.4 8.8 - 10.4 mg/dL 06/12/2024 8:03 PM IP COUNSEL [facility] Glucose 97 70 - 99 mg/dL 06/12/2024 8:03 PM IP COUNSEL [facility] Blood BLOOD SPECIMEN / Unknown Venipuncture / Unknown 06/12/2024 7:17 PM IP COUNSEL 06/12/2024 7:32 PM IP COUNSEL us Abdelrahman Goddard MD LAB - BLOOD ORDERABLES Final R esult [facility] [place] [facility] Lab [address] [facility] * (ABNORMAL) INR (06/12/2024 7:17 PM IP COUNSEL) INR 1.37(H) 0.85 - 1.15 06/12/2024 7:54 PM IP COUNSEL [facility] Blood BLOOD SPECIMEN / Unknown Venipuncture / Unknown 06/12/2024 7:17 PM IP COUNSEL 06/12/2024 7:32 PM IP COUNSEL Abdelrahman Goddard MD LAB - BLOOD ORDERABLES Final R esult [facility] Core Lab [address] [facility], [address] [place] [address] * EKG 12-lead, tracing only (06/12/2024 6:37 PM IP COUNSEL) Systolic Blood Pressure mmHg RADIOLOGY RESULTS Diastolic Blood Pressure mmHg RADIOLOGY RESULTS Ventricular Rate 94 BPM RAD IOLOGY RESULTS Atrial Rate 94 BPM RADIOLOG Y RESULTS OK Interval 146 ms RADIOLOG Y RESULTS QRS Duration 84 ms RADIOLO GY RESULTS QT 346 ms RADIOLOGY RESULTS QTc 432 ms RADIOLOGY RESULTS P [place] 31 degrees RADIOLOGY RESULTS R AXIS 85 degrees RADIOLOGY RESULTS T [place] 36 degrees RADIOLOGY RESULTS Interpretation ECG Sinus rhythm Normal ECG Unconfirmed report - interpretation of this ECG is computer generated - see medical record for final interpretation Confirmed by - EMERGENCY ROOM, PHYSICIAN ([id number]), legal editor CLAUDIO ASTORGA [id number]) on 06/13/2024 7:17:59 AM RADIOLOGY RESULTS 06/12/2024 6:37 PM IP COUNSEL 06/13/2024 7:17 AM IP COUNSEL Alex Morton MD ECG ORDERABLES Edited Resul [...] within 2 weeks. $Given 06/15/2024 8:05 AM IP COUNSEL 2 puffs $Given 06/14/2024 7:59 PM IP COUNSEL 2 puffs $Given 06/14/2024 4:39 PM IP COUNSEL 2 puffs albuterol (PROVENTIL HFA/VENTOLIN HFA) inhaler [...] Indications: SepsisIndications:Sepsis $New Bag 06/12/2024 9:31 PM IP COUNSEL 500 mg 250 mL /hr azithromycin (ZITHROMAX) 500 mg in sodium chloride 0.9 % 250 mL intermittent infusion Routine, 500 mg, Intravenous, EVERY 24 HOURS, First dose on Wed06/13/24 at 2100, Indications: Acute chest syndromeIndications:Acute chest syndrome $New Bag 06/13/2024 10:04 PM IP COUNSEL 500 mg azithromycin (ZITHROMAX) tablet 500 mg Routine, 500 mg, Oral, DAILY, First dose on Wed06/14/24 at 1200, Indications: Community Acquired PneumoniaIndications:Community Acquired Pneumonia $Given 06/15/2024 8:05 AM IP COUNSEL 500 mg $Given 06/14/2024 12:38 PM IP COUNSEL 500 mg cefTRIAXone (ROCEPHIN) 1 g vial to attach to NS 100 mL bag for ADULTS or NS 50 mL bag for PEDS STAT, 1 g, Intravenous, ONCE, On Wed06/12/24 at 2005, For 1 dose, Lactated Ringer's solution is not compatible with ceftriaxone for injection, Indications: SepsisIndications:Sepsis $New Bag 06/12/2024 8:39 PM IP COUNSEL 1 g cefTRIAXone (ROCEPHIN) 2 g vial to attach to NS 100 ml bag for ADULTS or NS 50 ml bag for PEDS Routine, 2 g, Intravenous, EVERY 24 HOURS, First dose on Wed06/13/24 at 2000, Lactated Ringer's solution is not compatible with ceftriaxone for injection, Indications: Acute chest syndromeIndications:Acute chest syndrome $New Bag 06/14/2024 8:00 PM IP COUNSEL 2 g $New Bag 06/13/2024 8:16 PM IP COUNSEL 2 g diclofenac (VOLTAREN) 1 % topical gel 2 g 2 g, Topical, 4 TIMES DAILY PRN, inflammatory pain, Starting on Wed06/14/24 at 0912, Apply to area of pain. Use supplied dosing card to measure dose. $Given 06/15/2024 8:10 AM IP COUNSEL 2 g $Given 06/14/2024 12:38 PM IP COUNSEL 2 g diphenhydrAMINE (BENADRYL) capsule 25 mg 25 mg, Oral, EVERY 6 HOURS PRN, itching, Starting on Wed06/12/24 at 2139 $Given 06/14/2024 12:38 PM IP COUNSEL 25 mg $Given 06/13/2024 10:54 PM IP COUNSEL 25 mg $Given 06/13/2024 12:12 PM IP COUNSEL 25 mg diphenhydrAMINE (BENADRYL) injection 25 mg 25 mg, Intravenous, EVERY 6 HOURS PRN, itching, Starting on Wed06/12/24 at 2139 $Given 06/13/2024 5:39 AM IP COUNSEL 25 mg $Given 06/12/2024 10:41 PM IP COUNSEL 25 mg enoxaparin ANTICOAGULANT (LOVENOX) injection 40 mg 40 mg, Subcutaneous, EVERY 24 HOURS, First dose on Wed06/13/24 at 0800, Contact provider if platelet count drops by 50% or more after enoxaparin initiation OR if platelet count falls below 50 x 10e3/uL $Given 06/15/2024 7:59 AM IP COUNSEL 40 mg $Given 06/14/2024 8:29 AM IP COUNSEL 40 mg $Given 06/13/2024 7:49 AM IP COUNSEL 40 mg FLUoxetine (PROzac) capsule 10 mg 10 mg, Oral, DAILY, First dose on Wed06/13/24 at 0800 $Given 06/14/2024 2:37 PM IP COUNSEL 10 mg $Given 06/13/2024 7:50 AM IP COUNSEL 10 mg folic acid (FOLVITE) tablet 1 mg 1 mg, Oral, DAILY, First dose on Wed06/13/24 at 0800 $Given 06/15/2024 8:05 AM IP COUNSEL 1 mg $Given 06/14/2024 8:29 AM IP COUNSEL 1 mg $Given 06/13/2024 7:49 AM IP COUNSEL 1 mg heparin lock flush 10 unit/mL [...] For 1 dose $Given 06/12/2024 7:24 PM IP COUNSEL 2 mg hydromorphone (DILAUDID) injection 2 mg 2 mg, Intravenous, ONCE, On Wed06/12/24 at 2010, For 1 dose $Given 06/12/2024 8:14 PM IP COUNSEL 2 mg hydromorphone (DILAUDID) injection 2 mg 2 mg, Intravenous, EVERY 3 HOURS PRN, moderate pain, IF patient cannot take oral opioid OR IF pain not managed with non-pharmacological, non-opioid, or oral opioid interventions if ordered, Starting on Wed06/12/24 at 2237, May use concomitant with non-opioid analgesics. $Given 06/12/2024 11:31 PM IP COUNSEL 2 mg hydromorphone (DILAUDID) injection 2 mg 2 mg, Intravenous, ONCE, On Wed06/12/24 at 2135, For 1 dose $Given 06/12/2024 9:46 PM IP COUNSEL 2 mg hydromorphone (DILAUDID) injection 2 mg 2 mg, Intravenous, EVERY 2 HOURS PRN, moderate pain, IF patient cannot take oral opioid OR IF pain not managed with non-pharmacological, non-opioid, or oral opioid interventions if ordered, Starting on Wed06/13/24 at 0132, May use concomitant with non-opioid analgesics. $Given 06/14/2024 12:38 PM IP COUNSEL 2 mg $Given 06/14/2024 10:31 AM IP COUNSEL 2 mg $Given 06/14/2024 8:29 AM IP COUNSEL 2 mg hydromorphone (DILAUDID) injection 2 mg 2 mg, Intravenous, EVERY 2 HOURS, First dose (after last modification) on Wed06/14/24 at 1415, May use concomitant with non-opioid analgesics. $Given 06/15/2024 7:58 AM IP COUNSEL 2 mg $Given 06/15/2024 6:01 AM IP COUNSEL 2 mg $Given 06/15/2024 4:11 AM IP COUNSEL 2 mg hydroxyurea (HYDREA) capsule 1,000 mg 1,000 mg, Oral, 2 TIMES DAILY, First dose on Wed06/12/24 at 2330, Indications: sickle cell anemia, Do not crush May require hepatic and/or renal dose or frequency adjustments. See reference link for guidelines.Indications:sickle cell anemia $Given 06/15/2024 8:06 AM IP COUNSEL 1,000 mg $Given 06/14/2024 8:00 PM IP COUNSEL 1,000 mg $Given 06/14/2024 8:30 AM IP COUNSEL 1,000 mg lactated ringers infusion at 75 mL/hr, Intravenous, CONTINUOUS, Starting on Wed06/12/24 at 2240, Until Wed06/13/24 at 0839 Rate/Dose Verify 06/13/2024 7:02 AM IP COUNSEL 75 mL/hr Rate/Dose Verify 06/13/2024 4:52 AM IP COUNSEL 75 mL/h r Rate/Dose Verify 06/13/2024 1:35 AM IP COUNSEL 75 mL/h r Lidocaine (LIDOCARE) 4 % [...] Wed06/12/24 at 2138 $Given 06/13/2024 1:28 AM IP COUNSEL 5 mg menthol (ICY HOT) 5 % [...] Liquid not required. $Given 06/14/2024 9:20 AM IP COUNSEL 4 mg ondansetron (ZOFRAN) injection 4 mg 4 mg, Intravenous, ONCE, Administer over 2-5 Minutes, On Wed06/12/24 at 1850, For 1 dose $Given 06/12/2024 7:24 PM IP COUNSEL 4 mg ondansetron (ZOFRAN) injection 4 mg 4 mg, Intravenous, EVERY 6 HOURS PRN, nausea/vomiting - 1st line, Administer over 2-5 Minutes, Starting on Wed06/12/24 at 2237, Give IF patient unable to tolerate oral medication. This is Step 1 of nausea and vomiting management. If nausea not resolved in 15 minutes, go to Step 2 prochlorperazine (COMPAZINE). $Given 06/15/2024 4:19 AM IP COUNSEL 4 mg senna-docusate (SENOKOT-S/PERICOLACE) 8.6-50 MG per [...] IV dormant line $Given 06/15/2024 6:32 AM IP COUNSEL 3 mLs $Given 06/13/2024 8:37 PM IP COUNSEL 3 mLs $Given 06/13/2024 2:12 PM IP COUNSEL 3 mLs sodium chloride (PF) 0.9% PF flush 3 mL 3 mL, Intracatheter, EVERY 1 MIN PRN, line flush, other, to ensure patency or to lock dormant line, Starting on Wed06/12/24 at 2237 $Given 06/14/2024 2:4 2 PM IP COUNSEL 3 mLs $Given 06/14/2024 8:30 AM IP COUNSEL 3 mLs $Given 06/14/2024 1:32 AM IP COUNSEL 3 mLs sodium chloride 0.9% BOLUS 1,000 mL Intravenous, 1,000 mL, ONCE, at 1,000 mL/hr, Administer over 1 Hours, On Wed06/12/24 at 1850, For 1 dose $New Bag 06/12/2024 7:22 PM IP COUNSEL 1,000 mLs 1000 mL/hr documented in this encounter Active and Recently Administered Medications Times are shown in IP COUNSEL. Scheduled Medication Order 06/13/2024 06/14/2024 06/15/2024 albuterol [...] Wed06/13/24 at 0800 0750 ($Given - Provider: uX Ravi RN) 1437 ($Given - Provider: Clay [...] 0920 ($Given - Provider: Clay Avina RN) 3771 (See Alternative - Provider: Kahty Levy, SOFIA) ondansetron (ZOFRAN) injection 4 mg(Linked [...] stools. documented in this encounter Care Teams Lump Maker Relationship Specialty Start Date End Date No Ref-Primary, Physician PCP - General 03/15/24 06/17/24 Mor Ramsey Medical Student 04/03/24 Case Samuel MD [address] [place] [address] 484, [address] [place] [address] Assigned Pediatric Specialist Provider 05/18/24 Juhi Benson, RN Specialty Lead Advisor Hematology & Oncology 05/29/24 documented as of this encounter
--- OUTSIDE RECORDS SUMMARY | 2024-06-25 14:33 | XMS_ITS | Encounter Summary ---
Author Organization [place] Address [address] [place] [address] Care Team Providers Care Counter Intelligence Technician Name Role Phone RoxyElvirac Unavailable Unavailable Case Samuel MD Unavailable [phone] Juhi Benson RN Unavailable Unavailable Veronica Joseph MD Primary Care Provider [phone] Reason for Visit * Reason Comments Sickle Cell Pain Crisis Pt reports pain in back and b/l legs Encounter Details Date Type Department Care Team (Late st Contact Info) Description 06/23/2024 6:03 PM GLASS FITTER - 06/23/2024 9:47 PM GLASS FITTER Emergency [facility] Emergency Department [address] [place] [phone] Dayna Crane MD [address] [address] Sickle cell disease with crisis (H) Discharge [...] in an overnight intermediate, or couch-surfing.) Yes 06/20/2024 Are you worried [...] on file Legal Sex Female 8:25 AM GLASS FITTER Gender Identity Not on file Sexual Orientation Not on file documented as of this encounter Last Filed Vital Signs Vital Sign Reading Time Taken Comments Blood Pressure 114/66 06/23/2024 7:49 PM GLASS FITTER Pulse 100 06/23/2024 5:53 PM GLASS FITTER Temperature 36.7 C (98 F) 06/23/2024 7:49 PM GLASS FITTER Respiratory Rate 16 06/23/2024 7:49 PM GLASS FITTER Oxygen Saturation 99% 06/23/2024 7:49 PM GLASS FITTER Inhaled Oxygen Concentration - - Weight 52.2 kg (115 lb) 06/23/2024 5:53 PM GLASS FITTER Height 154.9 cm (5' 1) 06/23/2024 5:53 PM GLASS FITTER Body Mass Index 21.73 06/23/2024 5:53 PM GLASS FITTER documented in this encounter Discharge Instructions * Discharge Instructions* Dayna Crane MD - 06/23/2024 9:00 PM GLASS FITTER Please make an appointment to follow up with Your Primary Care Provider in 2-3 days. S FITTER S FITTER * Attachments The following attachments cannot be sent through Care Everywhere. * Sickle Cell Crisis (Chilean) documented in this encounter Medications at Time [...] 05/01/2024 naloxone (NARCAN) 4 MG/0.1ML nasal spray [place] 1 spray (4 mg) into one nostril [...] Booker - 06/23/2024 6:12 PM CST Bed: [facility] Expected date: Expected time: Means of arrival: Comments: X3 monitor: [id number] S FITTER * Melanie Menon RN - 06/23/2024 5:54 [...] WDL Cognitive/Neuro/Behavioral WDL Cognitive/Neuro/Behavioral WDL WDL S FITTER documented in this encounter Plan of Treatment Not on file documented as of this encounter Goals Goal Patient Goal Type Associated Problems Recent Progress Patient-Stated? Author Pain Management General On track( 025 12:40 PM GLASS FITTER) Yes Juhi Benson, RN Note: Goal Statement: [...] PLATELETS AND DIFFERENTIAL STAT 06/23/2024 6:22 PM GLASS FITTER CBC WITH PLATELETS & DIFFERENTIAL STAT 06/23/2024 6:22 PM GLASS FITTER HCG QUALITATIVE STAT 06/23/2024 6:22 PM GLASS FITTER DIFFERENTIAL STAT 06/23/2024 6:22 PM GLASS FITTER COMPREHENSIVE METABOLIC PANEL STAT 06/23/2024 6:22 PM GLASS FITTER documented in this encounter Results * (ABNORMAL) Manual Differential (06/23/2024 6:22 PM GLASS FITTER) Pathologist [facility] % Neutrophils 73 % 06/23/2024 7:05 PM GLASS FITTER [facility] % Lymphocytes 24 % 06/23/2024 7:05 PM GLASS FITTER [facility] % Monocytes 2 % 06/23/2024 7:05 PM GLASS FITTER [facility] % Eosinophils 0 % 06/23/2024 7:05 PM GLASS FITTER [facility] % Basophils 2 % 06/23/2024 7:05 PM GLASS FITTER [facility] NRBCs per 100 WBC 12(H) <=0 % 06/23/2024 7:05 PM GLASS FITTER [facility] Absolute Neutrophils 7.2 1.6 - 8.3 10e3/uL 06/23/2024 7:05 PM GLASS FITTER [facility] Absolute Lymphocytes 2.3 0.8 - 5.3 10e3/uL 06/23/2024 7:05 PM GLASS FITTER [facility] Absolute Monocytes 0.2 0.0 - 1.3 10e3/uL 06/23/2024 7:05 PM GLASS FITTER [facility] Absolute Eosinophils 0.0 0.0 - 0.7 10e3/uL 06/23/2024 7:05 PM GLASS FITTER [facility] Absolute Basophils 0.2 0.0 - 0.2 10e3/uL 06/23/2024 7:05 PM GLASS FITTER [facility] Absolute NRBCs 1.2(H) <=0.0 10e3/uL 025 7:05 PM GLASS FITTER [facility] RBC Morphology Confirmed RBC Indices 06/23/2024 7:05 PM GLASS FITTER [facility] Platelet Assessment Automated Count Confirmed. Platelet morphology is normal. Automated Count Confirmed. Platelet morphology is normal. 06/23/2024 7:05 PM GLASS FITTER [facility] Polychromasia Slight(A) None Seen 06/23/2024 7:05 PM GLASS FITTER [facility] Sickle Cells Slight(A) None Seen 06/23/2024 7:05 PM GLASS FITTER [facility] Target Cells Slight(A) None Seen 06/23/2024 7:05 PM GLASS FITTER [facility] Blood BLOOD SPECIMEN / Unknown Venipuncture / Unknown 06/23/2024 6:22 PM GLASS FITTER 06/23/2024 6:34 PM GLASS FITTER us Dayna Crane MD LAB - BLOOD ORDERABLES Final Re sult [facility] [address] [facility], [address] [place] [address] * (ABNORMAL) CBC with platelets and differential (06/23/2024 6:22 PM GLASS FITTER) WBC Count 9.8 4.0 - 11.0 10e3/uL 06/23/2024 6:45 PM GLASS FITTER [facility] RBC Count 2.49(L) 3.80 - 5.20 10e6/uL 06/23/2024 6:45 PM GLASS FITTER [facility] Hemoglobin 8.0(L) 11.7 - 15.7 g/dL 06/23/2024 6:45 PM GLASS FITTER [facility] Hematocrit 24.2(L) 35.0 - 47.0 % 06/23/2024 6:45 PM GLASS FITTER [facility] MCV 97 78 - 100 fL 06/23/2024 6:45 PM GLASS FITTER [facility] MCH 32.1 26.5 - 33.0 pg 06/23/2024 6:45 PM GLASS FITTER [facility] MCHC 33.1 31.5 - 36.5 g/dL 06/23/2024 6:45 PM GLASS FITTER [facility] RDW 18.8(H) 10.0 - 15.0 % 06/23/2024 6:45 PM GLASS FITTER [facility] Platelet Count 482(H) 150 - 450 10e3/uL 06/23/2024 6:45 PM GLASS FITTER [facility] Blood BLOOD SPECIMEN / Unknown Venipuncture / Unknown 06/23/2024 6:22 PM GLASS FITTER 06/23/2024 6:34 PM GLASS FITTER Dayna Crane MD LAB - BLOOD ORDERABLES Final Re sult Performing Organization Address City/[facility]/ZIP Co de Phone Number [facility] [address] [facility], [address] [phone] [place] [address] * HCG qualitative Blood (06/23/2024 6:22 PM GLASS FITTER) Pathologist [facility] hCG Serum Qualitative Negative Negative JARET 06/23/2024 6:49 PM GLASS FITTER [facility] Comment:This test is for scr eening purposes. Results should be interpreted along with the clinical picture. Confirmation testing is available if warranted by ordering [id number], HCG Quantitative . Blood BLOOD SPECIMEN / Unknown Venipuncture / Unknown 06/23/2024 6:22 PM GLASS FITTER 06/23/2024 6:38 PM GLASS FITTER Dayna Crane MD LAB - BLOOD ORDERABLES Final Re sult Performing Organization Address [facility] de Phone Number [facility] [address] [facility], [address] [phone] * (ABNORMAL) Comprehensive metabolic panel (06/23/2024 6:22 PM GLASS FITTER) Pathologist [facility] Sodium 140 135 - 145 mmol/L 06/23/2024 7:13 PM GLASS FITTER [facility] Potassium 4.3 3.4 - 5.3 mmol/L 06/23/2024 7:13 PM GLASS FITTER [facility] Carbon Dioxide (CO2) 24 22 - 29 mmol/L 06/23/2024 7:13 PM GLASS FITTER [facility] Anion Gap 7 7 - 15 mmol/L 06/23/2024 7:13 PM GLASS FITTER [facility] Urea Nitrogen 6.8 6.0 - 20.0 mg/dL 06/23/2024 7:13 PM GLASS FITTER [facility] Creatinine 0.61 0.51 - 0.95 mg/dL 06/23/2024 7:13 PM GLASS FITTER [facility] GFR Estimate >90 >60 mL/min/1.7 3m2 06/23/2024 7:13 PM GLASS FITTER [facility] Comment:eGFR calculated 2020 CKD-EPI equation. Calcium 8.8 8.8 - 10.4 mg/dL 06/23/2024 7:13 PM GLASS FITTER [facility] Chloride 109(H) 98 - 107 mmol/L 06/23/2024 7:13 PM GLASS FITTER [facility] Glucose 102(H) 70 - 99 mg/dL 06/23/2024 7:13 PM GLASS FITTER [facility] Alkaline Phosphatase 125 40 - 150 U/L 06/23/2024 7:13 PM GLASS FITTER [facility] AST 84(H) 0 - 45 U/L 06/23/2024 7:13 PM GLASS FITTER [facility] ALT 69(H) 0 - 50 U/L 06/23/2024 7:13 PM GLASS FITTER [facility] Protein Total 7.8 6.4 - 8.3 g/dL 06/23/2024 7:13 PM GLASS FITTER [facility] Albumin 4.2 3.5 - 5.2 g/dL 06/23/2024 7:13 PM GLASS FITTER [facility] Bilirubin Total 1.5(H) <=1.2 mg/dL 06/23/2024 7:13 PM GLASS FITTER [facility] Blood BLOOD SPECIMEN / Unknown Venipuncture / Unknown 06/23/2024 6:22 PM GLASS FITTER 06/23/2024 6:34 PM GLASS FITTER us Dayna Crane MD LAB - BLOOD ORDERABLES Final Re sult [facility] [address] [facility], [address] [address] documented in this encounter Visit [...] For 1 dose $Given 06/23/2024 7:43 PM GLASS FITTER 25 mg heparin lock flush 100 unit/mL injection 100 Units 100 Units, Intravenous, ONCE, On Wed06/23/24 at 2100, For 1 dose $Given 06/23/2024 9:25 PM GLASS FITTER 100 Units hydromorphone (DILAUDID) injection 2 mg 2 mg, Intravenous, EVERY 1 HOUR PRN, severe pain, Starting on Wed06/23/24 at 1806, X 3 max $Given 06/23/2024 8:46 PM GLASS FITTER 2 mg $Given 06/23/2024 7:43 PM GLASS FITTER 2 mg $Given 06/23/2024 6:28 PM GLASS FITTER 2 mg sodium chloride 0.9% BOLUS 1,000 mL Intravenous, 1,000 mL, ONCE, at 1,000 mL/hr, Administer over 1 Hours, On Wed06/23/24 at 1810, For 1 dose $New Bag 06/23/2024 6:28 PM GLASS FITTER 1,000 mLs 1000 mL/hr documented in this encounter Active and Recently Administered Medications Times are shown in GLASS FITTER. Scheduled Medication Order 06/21/2024 06/22/2024 06/23/2024 diphenhydrAMINE [...] RN) documented in this encounter Care Teams Counter Intelligence Technician Relationship Specialty Start Date End Date Veronica Joseph MD [address] [place] [address] PCP - General Family Medicine 06/18/24 Mor Ramsey Medical Student 04/03/24 Case Samuel MD [address] [place] [address] [address], [address] [place] [address] Assigned Pediatric Specialist Provider 05/18/24 Juhi Benson, SOFIA Specialty Watch Leader Hematology & Oncology 05/29/24 documented as of this encounter
--- OUTSIDE RECORDS SUMMARY | 2024-06-25 14:33 | XMS_ITS | Encounter Summary ---
Author Organization [facility] Address [address] [place] [address] Care Team Providers Care Implementation Specialist Name Role Phone No Ref-Primary, Physician Primary Care Provider Mor Ramesy Unavailable Unavailable Case Samuel MD Unavailable [phone] Juhi Benson RN Unavailable Unavailable Reason for Visit * Reason Comments Sickle Cell Pain Crisis Encounter Details Date Type Department Care Team (Late st Contact Info) Description 06/11/2024 9:02 PM MITER OPERATOR - 06/12/2024 1:57 AM [facility] Emergency [facility] Room [address] [place] [address] Iliana Weber MD [facility] [address] [place] [address] Sickle cell pain crisis (H) Discharge Disposition: [...] on file Legal Sex Female 8:25 AM MITER OPERATOR Gender Identity Not on file Sexual Orientation Not on file documented as of this encounter Last Filed Vital Signs Vital Sign Reading Time Taken Comments Blood Pressure 118/75 06/12/2024 12:45 AM MITER OPERATOR Pulse 91 06/12/2024 12:45 AM MITER OPERATOR Temperature 36.5 C (97.7 F) 06/11/2024 8:58 PM MITER OPERATOR Respiratory Rate 19 06/12/2024 12:45 AM MITER OPERATOR Oxygen Saturation 95% 06/12/2024 12:45 AM MITER OPERATOR Inhaled Oxygen Concentration - - Weight 52.2 kg (115 lb) 06/11/2024 8:58 PM MITER OPERATOR Height 154.9 cm (5' 1) 06/11/2024 8:58 PM MITER OPERATOR Body Mass Index 21.73 06/11/2024 8:58 PM MITER OPERATOR documented in this encounter Discharge Instructions * Attachments The following attachments cannot be sent through Care Everywhere. * Sickle Cell Crisis (Nauruan) documented in this encounter Medications at Time [...] 05/01/2024 naloxone (NARCAN) 4 MG/0.1ML nasal spray [place] 1 spray (4 mg) into one nostril [...] CST Gave handoff report to Niki BLACK R OPERATOR * Shane Santos RN - 06/11/2024 10:00 PM CST Pt drove here as seen on security footage. Notified Dr Weber, and ok to proceed with treatment plan as ordered. Pt was advised to arrange a ride home. R OPERATOR * Iliana Weber MD - 06/11/2024 [...] get infusion therapies frequently. Last seen at [facility] 06/11/2024 early this morning about midnight. [...] with other provider:Did you involve another provider (product consultant, MH, pharmacy, etc.)?: No Discharge. 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 Recently moved to [place] from [place], [place]. She is 1 of 9 [...] Social Connections: Socially Integrated (03/28/2024) Received from [facility] [employer] [facility] Social Connections Do you often feel [...] dry. Normal skin color. Neuro: Speech clear. bat carrier grossly intact. Moves all extremities appropriately. Strength [...] Given normal axis. QTcis 453, QRS 78, OH 158. As compared to previous EKG from June 05, 2024 T wave slightly flattened in 3 and aVF but otherwise no significant change. I have independently reviewed and interpreted the EKG(s) documented above. Iliana Weber M.D. Emergency Medicine [facility] EMERGENCY ROOM [address] [facility] [address] Dept: [phone] Iliana Weber MD 06/12/24 0149 R OPERATOR * Jennifer Muse RN - 06/11/2024 [...] WDL Cognitive/Neuro/Behavioral WDL Cognitive/Neuro/Behavioral WDL WDL R OPERATOR documented in this encounter Plan of Treatment Not on file documented as of this encounter Goals Goal Patient Goal Type Associated Problems Recent Progress Patient-Stated? Author Pain Management General On track( 025 12:40 PM MITER OPERATOR) Yes Juhi Benson, RN Note: Goal [...] WITH MUSE SJN,SJO,WWH STAT 06/11/2024 9:04 PM MITER OPERATOR documented in this encounter Results * ECG 12-LEAD WITH MUSE (LHE) (06/11/2024 9:04 PM MITER OPERATOR) Systolic Blood Pressure mmHg RADIOLOGY RESULTS Diastolic Blood Pressure mmHg RADIOLOGY RESULTS Ventricular Rate 102 BPM RAD IOLOGY RESULTS Atrial Rate 102 BPM RADIOLOG Y RESULTS OH Interval 158 ms RADIOLOG Y RESULTS QRS Duration 78 ms RADIOLO GY RESULTS QT 348 ms RADIOLOGY RESULTS QTc 453 ms RADIOLOGY RESULTS P [place] 39 degrees RADIOLOGY RESULTS R AXIS 66 degrees RADIOLOGY RESULTS T [place] 33 degrees RADIOLOGY RESULTS Interpretation ECG Sinus tachycardia Nonspecific T wave abnormality Abnormal ECG When compared with ECG of 05-Jun-2024 11:40, No significant change was found Confirmed by SEE ED PROVIDER NOTE FOR, ECG INTERPRETATION (4000), tape editor SELMA GARRISON ([id number]) on 06/11/2024 9:05:27 PM RADIOLOGY RESULTS 06/11/2024 9:04 PM MITER OPERATOR 06/11/2024 9:05 PM MITER OPERATOR us Deshawn Arredondo MD ECG ORDERABLES [...] For 1 dose $Given 06/12/2024 1:32 AM MITER OPERATOR 25 mg heparin lock flush 100 [...] each port lumen $Given 06/12/2024 1:47 AM MITER OPERATOR 5 mLs HYDROmorphone (DILAUDID) injection 2 mg 2 mg, Intravenous, EVERY 1 HOUR PRN, moderate pain, Starting on Wed06/11/24 at 2103, For 3 doses $Given 06/12/2024 12:23 AM MITER OPERATOR 2 mg $Given 06/11/2024 11:16 PM MITER OPERATOR 2 mg $Given 06/11/2024 10:09 PM MITER OPERATOR 2 mg lactated ringers BOLUS 1,000 mL Intravenous, 1,000 mL, ONCE, at 500 mL/hr, Administer over 2 Hours, On 06/11/24 at 2130, For 1 dose $New Bag 06/11/2024 10:03 PM MITER OPERATOR 1,000 mLs 500 mL/hr ondansetron (ZOFRAN) injection 8 mg 8 mg, Intravenous, ONCE, Administer over 2-5 Minutes, On 06/11/24 at 2130, For 1 dose $Given 06/11/2024 10:08 PM MITER OPERATOR 8 mg sodium chloride (PF) 0.9% [...] Recently Administered Medications Times are shown in MITER OPERATOR. Scheduled Medication Order 06/10/2024 06/11/2024 06/12/2024 [...] draw. documented in this encounter Care Teams Implementation Specialist Relationship Specialty Start Date End Date No Ref-Primary, Physician PCP - General 03/15/24 06/17/24 Mor Ramsey Medical Student 04/03/24 Case Samuel MD [address] [place] [address], [address] [place] [address] Assigned Pediatric Specialist Provider 05/18/24 Juhi Benson, RN Specialty Senior Sales Director Hematology & Oncology 05/29/24 documented as of this encounter
--- OUTSIDE RECORDS SUMMARY | 2024-06-25 14:33 | XMS_ITS | Encounter Summary ---
Author Organization [facility] Address [address] [place] [address]. [place] [address] Care Team Providers Care Staff Nurse Anesthetist Name Role Phone Roxy Mor Unavailable Unavailable Case Samuel MD Unavailable [phone] Juhi Benson RN Unavailable Unavailable Veronica Joseph MD Primary Care Provider [phone] Encounter Details Date Type Department Care Team [...] on file Legal Sex Female 8:25 AM ENTHONE SOLDER STRIPPER Gender Identity Not on file Sexual Orientation Not on file documented as of this encounter Plan of Treatment Not on file documented as of this encounter Goals Goal Patient Goal Type Associated Problems Recent Progress Patient-Stated? Author Pain Management General On track( 025 12:40 PM ENTHONE SOLDER STRIPPER) Yes Juhi Benson RN Note: Goal Statement: [...] on filedocumented in this encounter Care Teams Staff Nurse Anesthetist Relationship Specialty Start Date End Date Veronica Joseph MD [address] [place] [address] PCP - General Family Medicine 06/18/24 Mor Ramsey Medical Student 04/03/24 Case Samuel MD [address] [place] [address] 484, [address] [place] [address] Assigned Pediatric Specialist Provider 05/18/24 Juhi Benson, RN Specialty Residue Furnace Operator Hematology & Oncology 05/29/24 documented as of this encounter
--- OUTSIDE RECORDS SUMMARY | 2024-06-25 14:34 | XMS_ITS | Clinical Summary ---
Author Organization [facility] Address [address] [place] [address] Care Team Providers Care Supervisor Force Adjustment Name Role Phone Roxy Mor Unavailable Unavailable Case Samuel MD Unavailable [phone] Juhi Benson RN Unavailable Unavailable Veronica Joseph MD Primary Care Provider [phone] Allergies Active Allergy Reactions Criticality Noted Date [...] Active naloxone (NARCAN) 4 MG/0.1ML nasal spray [place] 1 spray (4 mg) into one nostril [...] background: 29 yo F, recently moved from [place] Sickle Cell Disease History Primary Manager Chemical/HRIS ANALYST/PA: Lizzie Genotype: SS Acute Pain Crisis Treatment: [...] Department Care Team Description 06/24/2024 9:28 AM CONSTRUCTION AND MAINTENANCE INSPECTOR - 06/24/2024 1:05 PM CONSTRUCTION AND MAINTENANCE INSPECTOR Emergency [facility] Emergency Department [address] [place] [address] Richar Mahajan MD Sickle cell disease with crisis (H) Discharge Disposition: Home or Self Care 06/24/2024 Travel 06/23/2024 6:03 PM CONSTRUCTION AND MAINTENANCE INSPECTOR - 06/23/2024 9:47 PM [facility] Emergency [facility] Emergency Department [address] [place] [phone] Dayna Crane MD Sickle cell disease with crisis (H) Discharge Disposition: Home or Self Care 06/23/2024 Travel 06/22/2024 5:23 PM CONSTRUCTION AND MAINTENANCE INSPECTOR - 06/22/2024 10:02 PM CONSTRUCTION AND MAINTENANCE INSPECTOR Emergency [facility] Emergency Department [address] [place] [address] Lynne Varner MD Sickle cell anemia with crisis (H) Discharge Disposition: Home or Self Care 06/22/2024 Travel 06/16/2024 4:46 PM CONSTRUCTION AND MAINTENANCE INSPECTOR - 06/20/2024 11:00 AM CONSTRUCTION AND MAINTENANCE INSPECTOR Hospital Encounter [facility] 7C Med Surg [address] [place] [address] Abimael Schofield MD Pal, Suman, MD Duffy, Briar, MD Sickle cell pain crisis (H) Discharge Disposition: Home or Self Care 06/16/2024 Travel 06/15/[address] [phone] Case Samuel MD Refill Request 06/12/2024 6:38 PM CONSTRUCTION AND MAINTENANCE INSPECTOR - 06/15/2024 10:48 AM CONSTRUCTION AND MAINTENANCE INSPECTOR Hospital Encounter [facility] Emergency Department [address] [place] [phone] Abdelrahman Goddard MD Beacom, Evan, DO Duffy, Briar, MD 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); Acute chest pain; Sickle cell pain crisis (H); Pneumonia of right lower lobe due to infectious organism Discharge Disposition: Home or Self Care 06/12/2024 Travel 06/11/2024 9:02 PM CONSTRUCTION AND MAINTENANCE INSPECTOR - 06/12/2024 1:57 AM CONSTRUCTION AND MAINTENANCE INSPECTOR Emergency [facility] Emergency Room [address] [place] [phone] Iliana Weber MD Sickle cell pain crisis (H) Discharge Disposition: Home or Self Care 06/11/2024 Travel 06/09/2024 11:30 AM CONSTRUCTION AND MAINTENANCE INSPECTOR Infusion Therapy Visit [facility] Medical [address] [place] [phone] Case Smauel MD Sickle cell pain crisis (H) (Primary Dx) 06/09/2024 Travel 06/07/2024 1:30 PM CONSTRUCTION AND MAINTENANCE INSPECTOR Infusion Therapy Visit [facility] [address] [phone] Case Samuel MD Fever (Primary Dx); Sickle cell pain crisis (H) 06/07/2024 10:00 AM CONSTRUCTION AND MAINTENANCE INSPECTOR - 06/07/2024 10:45 AM CONSTRUCTION AND MAINTENANCE INSPECTOR Emergency [facility] Emergency Room [address] [place] [phone] Bernabe Farley MD Chest pain, unspecified type; Fever, unspecified fever cause; Left against medical advice Discharge Disposition: Home or Self Care 06/07/2024 Travel 06/06/2024 9:41 AM CONSTRUCTION AND MAINTENANCE INSPECTOR - 06/06/2024 1:29 PM [facility] Emergency [facility] Emergency Room [address] [place] [phone] Marilia Summers MD Sickle cell pain crisis (H) Discharge Disposition: Home or Self Care 06/05/2024 11:41 AM CONSTRUCTION AND MAINTENANCE INSPECTOR - 06/05/2024 3:28 PM [facility] Emergency [facility] Emergency Room [address] [place] [phone] Stiven Madsen MD Palm, Steven J, MD Sickle cell pain crisis (H) Discharge Disposition: Home or Self Care 06/05/2024 Travel 06/05/2024 [facility] [address] [place] [phone] Case Samuel MD Refill Request 06/03/2024 3:22 PM CONSTRUCTION AND MAINTENANCE INSPECTOR - 06/03/2024 5:30 PM [facility] Emergency [facility] Emergency Room [address] [place] [phone] Jennifer Bell MD Sickle cell pain crisis (H) Discharge Disposition: Home or Self Care 06/03/2024 Travel 06/01/2024 11:41 PM CONSTRUCTION AND MAINTENANCE INSPECTOR - 06/02/2024 2:35 AM [facility] Emergency [facility] Emergency Room [address] [place] [phone] Noel Pinzon MD Sickle cell pain crisis (H) Discharge Disposition: Home or Self Care 06/01/2024 Travel 05/31/2024 9:56 PM CONSTRUCTION AND MAINTENANCE INSPECTOR - 06/01/2024 12:46 AM [facility] Emergency [facility] Emergency Room [address] [place] [phone] Carley Riggins MD Sickle cell pain crisis (H) Discharge Disposition: Home or Self Care 05/31/2024 Travel 05/30/2024 8:00 AM CONSTRUCTION AND MAINTENANCE INSPECTOR Infusion Therapy Visit 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) 05/29/2024 Orders Only [facility] [address] [phone] Juhi Benson RN Sickle cell pain crisis (H) (Primary Dx); 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) 05/29/2024 Travel 05/28/2024 11:56 PM CONSTRUCTION AND MAINTENANCE INSPECTOR - 05/29/2024 3:54 AM CONSTRUCTION AND MAINTENANCE INSPECTOR Emergency [facility] Emergency Room [address] [place] [phone] Lenin Smith MD Sickle cell disease with crisis (H) Discharge Disposition: Home or Self Care 05/28/2024 Travel 05/27/2024 11:58 AM CONSTRUCTION AND MAINTENANCE INSPECTOR - 05/27/2024 6:07 PM CONSTRUCTION AND MAINTENANCE INSPECTOR Emergency [facility] Emergency Room [address] [place] [phone] Blas Mcclellan MD Ohl, Christine E, DO Sickle cell disease with crisis (H) Discharge Disposition: Home or Self Care 05/27/2024 Travel 05/25/2024 10:53 AM CONSTRUCTION AND MAINTENANCE INSPECTOR - 05/25/2024 4:00 PM CONSTRUCTION AND MAINTENANCE INSPECTOR Hospital Encounter [facility] Interventional Radiology [address] [place] [phone] Jaswinder Cooper MD 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) Discharge Disposition: Home or Self Care 05/23/2024 9:03 PM CONSTRUCTION AND MAINTENANCE INSPECTOR - 05/23/2024 11:37 PM CONSTRUCTION AND MAINTENANCE INSPECTOR Emergency [facility] Emergency Room [address] [place] [phone] Marilia Summers MD Sickle cell pain crisis (H); Leukocytosis, unspecified type; Left-sided chest wall pain Discharge Disposition: Home or Self Care 05/23/2024 Travel 05/22/2024 3:27 PM CONSTRUCTION AND MAINTENANCE INSPECTOR - 05/22/2024 6:55 PM CONSTRUCTION AND MAINTENANCE INSPECTOR Emergency [facility] Emergency Room [address] [place] [phone] Bernabe Farley MD Sickle cell pain crisis (H) Discharge Disposition: Home or Self Care 05/22/2024 MyC Refill [facility] [address] [place] [phone] Case Samuel MD Refill Request 05/22/2024 Travel 05/22/2024 MyC Medical Advice [facility] Interventional Radiology [address] [place] [phone] Yadi Mahan RN 05/20/2024 7:30 AM CONSTRUCTION AND MAINTENANCE INSPECTOR - 05/20/2024 11:15 AM [facility] Emergency [facility] Emergency Room [address] [place] [phone] Stiven Madsen MD Sickle cell pain crisis (H) Discharge Disposition: Home or Self Care 05/20/2024 Travel 05/19/2024 2:10 AM CONSTRUCTION AND MAINTENANCE INSPECTOR - 05/19/2024 6:06 AM [facility] Emergency [facility] Emergency Room [address] [place] [phone] Marilia Summers MD Sickle cell disease with crisis (H) Discharge Disposition: Home or Self Care 05/19/2024 Travel 05/16/2024 9:41 PM CONSTRUCTION AND MAINTENANCE INSPECTOR - 05/17/2024 12:53 AM CONSTRUCTION AND MAINTENANCE INSPECTOR Emergency [facility] Emergency Room [address] [place] [phone] Guille Davis DO Sickle cell pain crisis (H) Discharge Disposition: Home or Self Care 05/16/2024 Travel 05/14/2024 10:07 PM CONSTRUCTION AND MAINTENANCE INSPECTOR - 05/15/2024 12:14 AM CONSTRUCTION AND MAINTENANCE INSPECTOR Emergency [facility] Emergency Room [address] [place] [phone] Marguerite Ponce PA-C Sickle cell pain crisis (H) Discharge Disposition: Home or Self Care 05/14/2024 Travel 05/13/2024 3:56 PM CONSTRUCTION AND MAINTENANCE INSPECTOR - 05/13/2024 7:56 PM [facility] Emergency [facility] Emergency Room [address] [place] [phone] Shaheen Unger MD Sickle cell pain crisis (H) Discharge Disposition: Home or Self Care 05/13/2024 Travel 05/08/2024 3:10 PM CONSTRUCTION AND MAINTENANCE INSPECTOR - 05/08/2024 7:54 PM CONSTRUCTION AND MAINTENANCE INSPECTOR Emergency [facility] Emergency Room [address] [place] [phone] Polly Alcaraz MD Sickle cell pain crisis (H) Discharge Disposition: Home or Self Care 05/08/2024 Travel 05/08/2024 MyC Refill [facility] [address] [place] [phone] Case Samuel MD Refill Request 05/06/2024 6:34 PM CONSTRUCTION AND MAINTENANCE INSPECTOR - 05/06/2024 10:33 PM [facility] Emergency [facility] Emergency Room [address] [place] [phone] Noel Pinzon MD Sickle cell pain crisis (H) Discharge Disposition: Home or Self Care 05/06/2024 Travel 05/05/2024 11:10 AM CONSTRUCTION AND MAINTENANCE INSPECTOR - 05/05/2024 2:25 PM CONSTRUCTION AND MAINTENANCE INSPECTOR Emergency [facility] Emergency Room [address] [place] [phone] Star Gifford MD Sickle cell pain crisis (H) Discharge Disposition: Home or Self Care 05/05/2024 Travel 05/02/2024 8:23 AM CONSTRUCTION AND MAINTENANCE INSPECTOR - 05/02/2024 8:54 AM CONSTRUCTION AND MAINTENANCE INSPECTOR Emergency [facility] Emergency Department [address] [place] [phone] Andres Tejada MD Discharge Disposition: Left Without Being Seen 05/02/[address] 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, with sickle cell retinopathy, unspecified laterality, unspecified whether proliferative (H); Sickle cell pain crisis (H) 05/01/2024 Orders Only [facility] [address] [place] [phone] Juhi Benson RN 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) 05/01/2024 Travel 04/28/2024 12:41 AM CONSTRUCTION AND MAINTENANCE INSPECTOR - 04/28/2024 3:59 AM CONSTRUCTION AND MAINTENANCE INSPECTOR Emergency [facility] Emergency Room [address] [place] [phone] Sandy Joya MD Sickle cell pain crisis (H) Discharge Disposition: Home or Self Care 04/28/2024 Travel 04/26/2024 11:53 PM CONSTRUCTION AND MAINTENANCE INSPECTOR - 04/27/2024 2:14 AM CONSTRUCTION AND MAINTENANCE INSPECTOR Emergency [facility] Emergency Room [address] [place] [phone] Sandy Joya MD Sickle cell pain crisis (H) Discharge Disposition: Home or Self Care 04/26/2024 Travel 04/19/2024 1:48 AM CONSTRUCTION AND MAINTENANCE INSPECTOR - 04/19/2024 4:28 AM CONSTRUCTION AND MAINTENANCE INSPECTOR Emergency [facility] Emergency Room [address] [place] [phone] Juan Rodriguez MD Sickle cell pain crisis (H); Left hip pain; Nondisplaced articular fracture of head of left femur, initial encounter for closed fracture (H) Discharge Disposition: Home or Self Care 04/19/2024 Travel 04/08/2024 9:38 PM CONSTRUCTION AND MAINTENANCE INSPECTOR - 04/10/2024 10:16 AM CONSTRUCTION AND MAINTENANCE INSPECTOR Hospital Encounter [facility] [address] [place] [phone] Iliana Weber MD Huynh, Ryan K, MD Raddawi, Kenan, MD Sickle cell pain crisis (H) Discharge Disposition: Home or Self Care 04/08/2024 Travel 04/05/2024 11:32 PM CONSTRUCTION AND MAINTENANCE INSPECTOR - 04/06/2024 3:04 AM CONSTRUCTION AND MAINTENANCE INSPECTOR Emergency [facility] Emergency Room [address] [place] [phone] Guille Davis DO Sickle cell pain crisis (H); Pulmonary nodules Discharge Disposition: Home or Self Care 04/05/2024 Travel 03/29/2024 PRE VISIT [facility] [address] [place] [phone] Provider, Generic External Data *-*INCOMING RECORDS*-* (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 (H) [D57.1]) 03/28/2024 Transcribe Orders GENERIC EXTERNAL DATA DEPARTMENT Provider, Generic External Data 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 (H) (Primary Dx) 03/27/[address] [facility] [address] [place] [phone] Hector Crabtree RN Results from Last 3 Months Immunizations Name Administration [...] an overnight senior care, or couch-surfing.) Yes 06/20/2024 Are you worried [...] on file Legal Sex Female 8:25 AM CONSTRUCTION AND MAINTENANCE INSPECTOR Gender Identity Not on file Sexual Orientation Not on file Last Filed Vital Signs Vital Sign Reading Time Taken Comments Blood Pressure 111/67 06/24/2024 11:56 AM CONSTRUCTION AND MAINTENANCE INSPECTOR Pulse 101 06/24/2024 12:11 PM CONSTRUCTION AND MAINTENANCE INSPECTOR Temperature 36.9 C (98.4 F) 06/24/2024 9:26 AM CONSTRUCTION AND MAINTENANCE INSPECTOR Respiratory Rate 16 06/24/2024 9:26 AM CONSTRUCTION AND MAINTENANCE INSPECTOR Oxygen Saturation 100% 06/24/2024 12:11 PM CONSTRUCTION AND MAINTENANCE INSPECTOR Inhaled Oxygen Concentration - - Weight 52.2 kg (115 lb) 06/24/2024 9:26 AM CONSTRUCTION AND MAINTENANCE INSPECTOR Height 154.9 cm (5' 1) 06/24/2024 9:26 AM CONSTRUCTION AND MAINTENANCE INSPECTOR Body Mass Index 21.73 06/24/2024 9:26 AM CONSTRUCTION AND MAINTENANCE INSPECTOR Plan of Treatment Health Maintenance Due Date [...] Management General On track( 025 12:40 PM CONSTRUCTION AND MAINTENANCE INSPECTOR) Yes Juhi Benson, RN Note: Goal Statement: [...] medication remaining. Medical Devices Implanted Type Area Online Marketing Coordinator Device Identifier Shelf Expiration Date Model / Serial / Lot Bard 9.6 Powerflow Apheresis Iv Port-05/25/2024 Implanted:Qty: 1 on 05/25/2024 by Myron Michel MD Port Right: Chest Wall BARD 08/23/2024 [id number] / / [id number] Description:Right chest Wall Apheresis Port 9.6FR (Power) 6frt Smartport-05/25 Implanted:Qty: 1 on 05/25/2024 by Myron Michel MD Port Left: Chest Wall [employer] 09/23/2026 [id number] / / [id number] Description:6FR SL SmartPort (Power - 300psi max) Procedures Procedure Name Priority Date/Time Associated Diagnosis Comments ROUTINE UA WITH MICROSCOPIC REFLEX TO CULTURE STAT 06/24/2024 10:15 AM CONSTRUCTION AND MAINTENANCE INSPECTOR CBC WITH PLATELETS & DIFFERENTIAL STAT 06/24/2024 10:11 AM CONSTRUCTION AND MAINTENANCE INSPECTOR CBC WITH PLATELETS AND DIFFERENTIAL STAT 06/24/2024 10:11 AM CONSTRUCTION AND MAINTENANCE INSPECTOR RETICULOCYTE COUNT STAT 06/24/2024 10:11 AM CONSTRUCTION AND MAINTENANCE INSPECTOR HCG QUALITATIVE STAT 06/24/2024 10:11 AM CONSTRUCTION AND MAINTENANCE INSPECTOR MAGNESIUM STAT 06/24/2024 10:11 AM CONSTRUCTION AND MAINTENANCE INSPECTOR COMPREHENSIVE METABOLIC PANEL STAT 06/24/2024 10:11 AM CONSTRUCTION AND MAINTENANCE INSPECTOR INR STAT 06/24/2024 10:11 AM CONSTRUCTION AND MAINTENANCE INSPECTOR PARTIAL THROMBOPLASTIN TIME STAT 06/24/2024 10:11 AM CONSTRUCTION AND MAINTENANCE INSPECTOR CBC WITH PLATELETS & DIFFERENTIAL STAT 06/23/2024 6:22 PM CONSTRUCTION AND MAINTENANCE INSPECTOR DIFFERENTIAL STAT 06/23/2024 6:22 PM CONSTRUCTION AND MAINTENANCE INSPECTOR CBC WITH PLATELETS AND DIFFERENTIAL STAT 06/23/2024 6:22 PM CONSTRUCTION AND MAINTENANCE INSPECTOR HCG QUALITATIVE STAT 06/23/2024 6:22 PM CONSTRUCTION AND MAINTENANCE INSPECTOR COMPREHENSIVE METABOLIC PANEL STAT 06/23/2024 6:22 PM CONSTRUCTION AND MAINTENANCE INSPECTOR CBC WITH PLATELETS & DIFFERENTIAL STAT 06/22/2024 7:10 PM CONSTRUCTION AND MAINTENANCE INSPECTOR CBC WITH PLATELETS AND DIFFERENTIAL STAT 06/22/2024 7:10 PM CONSTRUCTION AND MAINTENANCE INSPECTOR RETICULOCYTE COUNT STAT 06/22/2024 7: 10 PM CONSTRUCTION AND MAINTENANCE INSPECTOR HCG QUALITATIVE STAT 06/22/2024 7:10 PM CONSTRUCTION AND MAINTENANCE INSPECTOR COMPREHENSIVE METABOLIC PANEL STAT 06/22/2024 7:10 PM CONSTRUCTION AND MAINTENANCE INSPECTOR CBC WITH PLATELETS & DIFFERENTIAL STAT 06/20/2024 5:48 AM CONSTRUCTION AND MAINTENANCE INSPECTOR CBC WITH PLATELETS AND DIFFERENTIAL STAT 06/20/2024 5:48 AM CONSTRUCTION AND MAINTENANCE INSPECTOR RETICULOCYTE COUNT Routine 06/20/2024 5: 48 AM CONSTRUCTION AND MAINTENANCE INSPECTOR COMPREHENSIVE METABOLIC PANEL Routine 06/20/2024 5:48 AM CONSTRUCTION AND MAINTENANCE INSPECTOR LACTATE DEHYDROGENASE Routine 06/20/2024 5:48 AM CONSTRUCTION AND MAINTENANCE INSPECTOR CBC WITH PLATELETS & DIFFERENTIAL STAT 06/19/2024 9:30 AM CONSTRUCTION AND MAINTENANCE INSPECTOR RBC AND PLATELET MORPHOLOGY STAT 06/19/2024 9:30 AM CONSTRUCTION AND MAINTENANCE INSPECTOR CBC WITH PLATELETS AND DIFFERENTIAL STAT 06/19/2024 9:30 AM CONSTRUCTION AND MAINTENANCE INSPECTOR RETICULOCYTE COUNT STAT 06/19/2024 9: 30 AM CONSTRUCTION AND MAINTENANCE INSPECTOR COMPREHENSIVE METABOLIC PANEL STAT 06/19/2024 9:30 AM CONSTRUCTION AND MAINTENANCE INSPECTOR LACTATE DEHYDROGENASE STAT 06/19/2024 9:30 AM CONSTRUCTION AND MAINTENANCE INSPECTOR PLATELET COUNT STAT 06/19/2024 12:17 AM CONSTRUCTION AND MAINTENANCE INSPECTOR CREATININE STAT 06/19/2024 12:17 AM CONSTRUCTION AND MAINTENANCE INSPECTOR CBC WITH PLATELETS & DIFFERENTIAL STAT 06/18/2024 8:24 AM CONSTRUCTION AND MAINTENANCE INSPECTOR DIFFERENTIAL STAT 06/18/2024 8:24 AM CONSTRUCTION AND MAINTENANCE INSPECTOR CBC WITH PLATELETS AND DIFFERENTIAL STAT 06/18/2024 8:24 AM CONSTRUCTION AND MAINTENANCE INSPECTOR RETICULOCYTE COUNT STAT 06/18/2024 8: 24 AM CONSTRUCTION AND MAINTENANCE INSPECTOR COMPREHENSIVE METABOLIC PANEL STAT 06/18/2024 8:24 AM CONSTRUCTION AND MAINTENANCE INSPECTOR LACTATE DEHYDROGENASE STAT 06/18/2024 8:24 AM CONSTRUCTION AND MAINTENANCE INSPECTOR ROUTINE UA WITH MICROSCOPIC REFLEX TO CULTURE STAT 06/17/2024 1:11 PM CONSTRUCTION AND MAINTENANCE INSPECTOR TRANSFUSE RED BLOOD CELLS (UNIT) STAT 06/17/2024 10:26 AM CONSTRUCTION AND MAINTENANCE INSPECTOR PREPARE RED BLOOD CELLS (UNIT) STAT 06/17/2024 9:12 AM CONSTRUCTION AND MAINTENANCE INSPECTOR TRANSFERRIN Add-On 06/17/2024 6:16 AM CONSTRUCTION AND MAINTENANCE INSPECTOR IRON AND IRON BINDING CAPACITY Add-On 06/17/2024 6:16 AM CONSTRUCTION AND MAINTENANCE INSPECTOR CBC WITH PLATELETS STAT 06/17/2024 6: 16 AM CONSTRUCTION AND MAINTENANCE INSPECTOR BASIC METABOLIC PANEL STAT 06/17/2024 6:16 AM CONSTRUCTION AND MAINTENANCE INSPECTOR TROPONIN T, HIGH SENSITIVITY STAT 06/16/2024 9:33 PM CONSTRUCTION AND MAINTENANCE INSPECTOR XR CHEST 2 VIEWS STAT 06/16/2024 6:09 PM CONSTRUCTION AND MAINTENANCE INSPECTOR ABO/RH TYPE AND SCREEN STAT 5:37 PM CONSTRUCTION AND MAINTENANCE INSPECTOR CBC WITH PLATELETS & DIFFERENTIAL STAT 06/16/2024 5:37 PM CONSTRUCTION AND MAINTENANCE INSPECTOR BLOOD CULTURE STAT 06/16/2024 5:37 PM CONSTRUCTION AND MAINTENANCE INSPECTOR TYPE AND SCREEN, ADULT STAT 5:37 PM CONSTRUCTION AND MAINTENANCE INSPECTOR RBC AND PLATELET MORPHOLOGY STAT 06/16/2024 5:37 PM CONSTRUCTION AND MAINTENANCE INSPECTOR CBC WITH PLATELETS AND DIFFERENTIAL STAT 06/16/2024 5:37 PM CONSTRUCTION AND MAINTENANCE INSPECTOR PROLACTIN STAT 06/16/2024 5:37 PM CONSTRUCTION AND MAINTENANCE INSPECTOR TROPONIN T, HIGH SENSITIVITY STAT 06/16/2024 5:37 PM CONSTRUCTION AND MAINTENANCE INSPECTOR COMPREHENSIVE METABOLIC PANEL STAT 06/16/2024 5:37 PM CONSTRUCTION AND MAINTENANCE INSPECTOR EKG 12-LEAD, TRACING ONLY STAT 06/16/2024 4:55 PM CONSTRUCTION AND MAINTENANCE INSPECTOR CBC WITH PLATELETS & DIFFERENTIAL STAT 06/15/2024 6:09 AM CONSTRUCTION AND MAINTENANCE INSPECTOR CBC WITH PLATELETS AND DIFFERENTIAL STAT 06/15/2024 6:09 AM CONSTRUCTION AND MAINTENANCE INSPECTOR BASIC METABOLIC PANEL STAT 06/15/2024 6:09 AM CONSTRUCTION AND MAINTENANCE INSPECTOR XR CHEST PORT 1 VIEW STAT 06/14/2024 8:46 AM CONSTRUCTION AND MAINTENANCE INSPECTOR CBC WITH PLATELETS STAT 06/14/2024 7: 08 AM CONSTRUCTION AND MAINTENANCE INSPECTOR BASIC METABOLIC PANEL STAT 06/14/2024 7:08 AM CONSTRUCTION AND MAINTENANCE INSPECTOR CBC WITH PLATELETS STAT 06/13/2024 6: 32 PM CONSTRUCTION AND MAINTENANCE INSPECTOR CBC WITH PLATELETS & DIFFERENTIAL STAT 06/13/2024 6:00 AM CONSTRUCTION AND MAINTENANCE INSPECTOR RBC AND PLATELET MORPHOLOGY STAT 06/13/2024 6:00 AM CONSTRUCTION AND MAINTENANCE INSPECTOR CBC WITH PLATELETS AND DIFFERENTIAL STAT 06/13/2024 6:00 AM CONSTRUCTION AND MAINTENANCE INSPECTOR BASIC METABOLIC PANEL STAT 06/13/2024 5:59 AM CONSTRUCTION AND MAINTENANCE INSPECTOR RESPIRATORY PANEL PCR STAT 06/12/2024 9:34 PM CONSTRUCTION AND MAINTENANCE INSPECTOR BLOOD CULTURE STAT 06/12/2024 8:46 PM CONSTRUCTION AND MAINTENANCE INSPECTOR BLOOD CULTURE STAT 06/12/2024 8:46 PM CONSTRUCTION AND MAINTENANCE INSPECTOR XR CHEST 2 VIEWS STAT 06/12/2024 7:38 PM CONSTRUCTION AND MAINTENANCE INSPECTOR ABO/RH TYPE AND SCREEN Add-On 7:17 PM CONSTRUCTION AND MAINTENANCE INSPECTOR CBC WITH PLATELETS & DIFFERENTIAL STAT 06/12/2024 7:17 PM CONSTRUCTION AND MAINTENANCE INSPECTOR TYPE AND SCREEN, ADULT Routine 7:17 PM CONSTRUCTION AND MAINTENANCE INSPECTOR RBC AND PLATELET MORPHOLOGY STAT 06/12/2024 7:17 PM CONSTRUCTION AND MAINTENANCE INSPECTOR CBC WITH PLATELETS AND DIFFERENTIAL STAT 06/12/2024 7:17 PM CONSTRUCTION AND MAINTENANCE INSPECTOR BLOOD GAS VENOUS STAT 06/12/2024 7:17 PM CONSTRUCTION AND MAINTENANCE INSPECTOR TROPONIN T, HIGH SENSITIVITY STAT 06/12/2024 7:17 PM CONSTRUCTION AND MAINTENANCE INSPECTOR BASIC METABOLIC PANEL STAT 06/12/2024 7:17 PM CONSTRUCTION AND MAINTENANCE INSPECTOR INR STAT 06/12/2024 7:17 PM CONSTRUCTION AND MAINTENANCE INSPECTOR EKG 12-LEAD, TRACING ONLY STAT 06/12/2024 6:37 PM CONSTRUCTION AND MAINTENANCE INSPECTOR ECG 12-LEAD WITH MUSE SJN,SJO,WWH STAT 06/11/2024 9:04 PM CONSTRUCTION AND MAINTENANCE INSPECTOR CBC WITH PLATELETS & DIFFERENTIAL Routine 06/07/2024 1:15 PM CONSTRUCTION AND MAINTENANCE INSPECTOR Sickle cell pain crisis (H) RBC AND PLATELET MORPHOLOGY Routine 06/07/2024 1:15 PM CONSTRUCTION AND MAINTENANCE INSPECTOR Sickle cell pain crisis (H) INFLUENZA A/B, RSV AND SARS-COV2 PCR Routine 06/07/2024 1:15 PM CONSTRUCTION AND MAINTENANCE INSPECTOR Fever CBC WITH PLATELETS AND DIFFERENTIAL Routine 06/07/2024 1:15 PM CONSTRUCTION AND MAINTENANCE INSPECTOR Sickle cell pain crisis (H) BASIC METABOLIC PANEL Routine 06/07/2024 1:15 PM CONSTRUCTION AND MAINTENANCE INSPECTOR Sickle cell pain crisis (H) ECG 12-LEAD WITH MUSE SJN,SJO,WWH STAT 06/05/2024 11:40 AM CONSTRUCTION AND MAINTENANCE INSPECTOR ECG 12-LEAD WITH MUSE SJN,SJO,WWH STAT 06/03/2024 3:24 PM CONSTRUCTION AND MAINTENANCE INSPECTOR CBC WITH PLATELETS & DIFFERENTIAL STAT 05/31/2024 10:21 PM CONSTRUCTION AND MAINTENANCE INSPECTOR RBC AND PLATELET MORPHOLOGY STAT 05/31/2024 10:21 PM CONSTRUCTION AND MAINTENANCE INSPECTOR CBC WITH PLATELETS AND DIFFERENTIAL STAT 05/31/2024 10:21 PM CONSTRUCTION AND MAINTENANCE INSPECTOR BASIC METABOLIC PANEL STAT 05/31/2024 10:21 PM CONSTRUCTION AND MAINTENANCE INSPECTOR RETICULOCYTE COUNT STAT 05/31/2024 10:21 PM CONSTRUCTION AND MAINTENANCE INSPECTOR TRANSFUSE RED BLOOD CELLS (UNIT) Routine 05/30/2024 8:28 AM CONSTRUCTION AND MAINTENANCE INSPECTOR 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) History of transfusion PREPARE RED BLOOD CELLS (UNIT) Routine 05/29/2024 5:12 PM CONSTRUCTION AND MAINTENANCE INSPECTOR ABO/RH TYPE AND SCREEN Routine 11:23 AM CONSTRUCTION AND MAINTENANCE INSPECTOR History of transfusion CBC WITH PLATELETS & DIFFERENTIAL Routine 05/29/2024 11:23 AM CONSTRUCTION AND MAINTENANCE INSPECTOR BILL ONLY- CAPILLARY ELECTROPHORESIS Routine 05/29/2024 11:23 AM CONSTRUCTION AND MAINTENANCE INSPECTOR BILL ONLY- SICKLE SOLUBILITY BILL Routine 05/29/2024 11:23 AM CONSTRUCTION AND MAINTENANCE INSPECTOR URINE CULTURE Routine 05/29/2024 11:23 AM CONSTRUCTION AND MAINTENANCE INSPECTOR TYPE AND SCREEN, ADULT Add-On 11:23 AM CONSTRUCTION AND MAINTENANCE INSPECTOR History of transfusion RBC AND PLATELET MORPHOLOGY Routine 05/29/2024 11:23 AM CONSTRUCTION AND MAINTENANCE INSPECTOR CBC WITH PLATELETS AND DIFFERENTIAL Routine 05/29/2024 11:23 AM CONSTRUCTION AND MAINTENANCE INSPECTOR GENOTYPE RED BLOOD CELL Routine 05/29/2024 11:23 AM CONSTRUCTION AND MAINTENANCE INSPECTOR History of transfusion HEMOGLOBIN EVAL REFLEX TO ELP OR RBC SOLUBILITY Routine 05/29/2024 11:23 AM CONSTRUCTION AND MAINTENANCE INSPECTOR FERRITIN Routine 05/29/2024 11:23 AM CONSTRUCTION AND MAINTENANCE INSPECTOR ROUTINE UA WITH MICROSCOPIC REFLEX TO CULTURE Routine 05/29/2024 11:23 AM CONSTRUCTION AND MAINTENANCE INSPECTOR COMPREHENSIVE METABOLIC PANEL Routine 05/29/2024 11:23 AM CONSTRUCTION AND MAINTENANCE INSPECTOR RETICULOCYTE COUNT Routine 05/29/2024 11:23 AM CONSTRUCTION AND MAINTENANCE INSPECTOR CBC WITH PLATELETS & DIFFERENTIAL STAT 05/29/2024 12:53 AM CONSTRUCTION AND MAINTENANCE INSPECTOR MANUAL DIFFERENTIAL STAT 05/29/2024 12:53 AM CONSTRUCTION AND MAINTENANCE INSPECTOR CBC WITH PLATELETS AND DIFFERENTIAL STAT 05/29/2024 12:53 AM CONSTRUCTION AND MAINTENANCE INSPECTOR RETICULOCYTE COUNT STAT 05/29/2024 12:53 AM CONSTRUCTION AND MAINTENANCE INSPECTOR CBC WITH PLATELETS & DIFFERENTIAL STAT 05/27/2024 3:13 PM CONSTRUCTION AND MAINTENANCE INSPECTOR MANUAL DIFFERENTIAL STAT 05/27/2024 3 :13 PM CONSTRUCTION AND MAINTENANCE INSPECTOR CBC WITH PLATELETS AND DIFFERENTIAL STAT 05/27/2024 3:13 PM CONSTRUCTION AND MAINTENANCE INSPECTOR RETICULOCYTE COUNT STAT 05/27/2024 3: 13 PM CONSTRUCTION AND MAINTENANCE INSPECTOR XR CHEST 2 VIEWS STAT 05/27/2024 2:57 PM CONSTRUCTION AND MAINTENANCE INSPECTOR COMPREHENSIVE METABOLIC PANEL STAT 05/27/2024 2:30 PM CONSTRUCTION AND MAINTENANCE INSPECTOR ECG 12-LEAD WITH MUSE SJN,SJO,WWH STAT 05/27/2024 12:12 PM CONSTRUCTION AND MAINTENANCE INSPECTOR IR PROCEDURE NOTE Routine 05/25/2024 2:5 4 PM CONSTRUCTION AND MAINTENANCE INSPECTOR IR CHEST PORT PLACEMENT > 5 YRS OF AGE Routine: Next available opening 05/25/2024 2:47 PM CONSTRUCTION AND MAINTENANCE INSPECTOR 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) IR CHEST PORT PLACEMENT > 5 YRS OF AGE Priority: 1-2 Weeks 05/25/2024 2:47 PM CONSTRUCTION AND MAINTENANCE INSPECTOR 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) HCG QUALITATIVE URINE Routine 05/25/2024 12:03 PM CONSTRUCTION AND MAINTENANCE INSPECTOR CT CHEST PULMONARY EMBOLISM W CONTRAST STAT 05/23/2024 9:33 PM CONSTRUCTION AND MAINTENANCE INSPECTOR N TERMINAL PRO BNP OUTPATIENT STAT 05/23/2024 9:02 PM CONSTRUCTION AND MAINTENANCE INSPECTOR TROPONIN T, HIGH SENSITIVITY STAT 05/23/2024 9:02 PM CONSTRUCTION AND MAINTENANCE INSPECTOR RETICULOCYTE COUNT STAT 05/23/2024 9:02 PM CONSTRUCTION AND MAINTENANCE INSPECTOR CBC WITH PLATELETS STAT 05/23/2024 9: 02 PM CONSTRUCTION AND MAINTENANCE INSPECTOR ECG 12-LEAD WITH MUSE SJN,SJO,WWH STAT 05/23/2024 6:54 PM CONSTRUCTION AND MAINTENANCE INSPECTOR XR CHEST 2 VIEWS STAT 05/22/2024 5:19 PM CONSTRUCTION AND MAINTENANCE INSPECTOR CBC WITH PLATELETS & DIFFERENTIAL STAT 05/22/2024 3:51 PM CONSTRUCTION AND MAINTENANCE INSPECTOR RBC AND PLATELET MORPHOLOGY STAT 05/22/2024 3:51 PM CONSTRUCTION AND MAINTENANCE INSPECTOR CBC WITH PLATELETS AND DIFFERENTIAL STAT 05/22/2024 3:51 PM CONSTRUCTION AND MAINTENANCE INSPECTOR BASIC METABOLIC PANEL STAT 05/22/2024 3:51 PM CONSTRUCTION AND MAINTENANCE INSPECTOR ECG 12-LEAD WITH MUSE SJN,SJO,WWH STAT 05/22/2024 3:14 PM CONSTRUCTION AND MAINTENANCE INSPECTOR XR CHEST 2 VIEWS STAT 05/20/2024 9:30 AM CONSTRUCTION AND MAINTENANCE INSPECTOR CBC WITH PLATELETS & DIFFERENTIAL STAT 05/20/2024 9:09 AM CONSTRUCTION AND MAINTENANCE INSPECTOR RBC AND PLATELET MORPHOLOGY STAT 05/20/2024 9:09 AM CONSTRUCTION AND MAINTENANCE INSPECTOR BASIC METABOLIC PANEL STAT 05/20/2024 9:09 AM CONSTRUCTION AND MAINTENANCE INSPECTOR EXTRA GREEN TOP (LITHIUM HEPARIN) TUBE STAT 05/20/2024 9:09 AM CONSTRUCTION AND MAINTENANCE INSPECTOR EXTRA TUBE STAT 05/20/2024 9:09 AM CONSTRUCTION AND MAINTENANCE INSPECTOR CBC WITH PLATELETS AND DIFFERENTIAL STAT 05/20/2024 9:09 AM CONSTRUCTION AND MAINTENANCE INSPECTOR RETICULOCYTE COUNT STAT 05/20/2024 9: 09 AM CONSTRUCTION AND MAINTENANCE INSPECTOR BASIC METABOLIC PANEL STAT 05/20/2024 8:21 AM CONSTRUCTION AND MAINTENANCE INSPECTOR ECG 12-LEAD WITH MUSE SJN,SJO,WWH STAT 05/20/2024 7:36 AM CONSTRUCTION AND MAINTENANCE INSPECTOR CBC WITH PLATELETS & DIFFERENTIAL STAT 05/19/2024 3:05 AM CONSTRUCTION AND MAINTENANCE INSPECTOR MANUAL DIFFERENTIAL STAT 05/19/2024 3 :05 AM CONSTRUCTION AND MAINTENANCE INSPECTOR CBC WITH PLATELETS AND DIFFERENTIAL STAT 05/19/2024 3:05 AM CONSTRUCTION AND MAINTENANCE INSPECTOR HCG QUALITATIVE STAT 05/19/2024 3:05 AM CONSTRUCTION AND MAINTENANCE INSPECTOR CK TOTAL STAT 05/19/2024 3:05 AM CONSTRUCTION AND MAINTENANCE INSPECTOR HEPATIC FUNCTION PANEL STAT 3:05 AM CONSTRUCTION AND MAINTENANCE INSPECTOR BASIC METABOLIC PANEL STAT 05/19/2024 3:05 AM CONSTRUCTION AND MAINTENANCE INSPECTOR RETICULOCYTE COUNT STAT 05/19/2024 3: 05 AM CONSTRUCTION AND MAINTENANCE INSPECTOR CBC WITH PLATELETS & DIFFERENTIAL STAT 05/16/2024 10:17 PM CONSTRUCTION AND MAINTENANCE INSPECTOR RBC AND PLATELET MORPHOLOGY STAT 05/16/2024 10:17 PM CONSTRUCTION AND MAINTENANCE INSPECTOR CBC WITH PLATELETS AND DIFFERENTIAL STAT 05/16/2024 10:17 PM CONSTRUCTION AND MAINTENANCE INSPECTOR BASIC METABOLIC PANEL STAT 05/16/2024 10:17 PM CONSTRUCTION AND MAINTENANCE INSPECTOR INFLUENZA A/B, RSV AND SARS-COV2 PCR STAT 05/16/2024 10:00 PM CONSTRUCTION AND MAINTENANCE INSPECTOR CBC WITH PLATELETS & DIFFERENTIAL STAT 05/14/2024 10:24 PM CONSTRUCTION AND MAINTENANCE INSPECTOR MANUAL DIFFERENTIAL STAT 05/14/2024 10:24 PM CONSTRUCTION AND MAINTENANCE INSPECTOR CBC WITH PLATELETS AND DIFFERENTIAL STAT 05/14/2024 10:24 PM CONSTRUCTION AND MAINTENANCE INSPECTOR HCG QUALITATIVE STAT 05/14/2024 10:24 PM CONSTRUCTION AND MAINTENANCE INSPECTOR TROPONIN T, HIGH SENSITIVITY STAT 05/14/2024 10:24 PM CONSTRUCTION AND MAINTENANCE INSPECTOR RETICULOCYTE COUNT STAT 05/14/2024 10:24 PM CONSTRUCTION AND MAINTENANCE INSPECTOR HEPATIC FUNCTION PANEL STAT 10:24 PM CONSTRUCTION AND MAINTENANCE INSPECTOR BASIC METABOLIC PANEL STAT 05/14/2024 10:24 PM CONSTRUCTION AND MAINTENANCE INSPECTOR ECG 12-LEAD WITH MUSE SJN,SJO,WWH STAT 05/14/2024 10:12 PM CONSTRUCTION AND MAINTENANCE INSPECTOR EXTRA PURPLE TOP TUBE STAT 05/13/2024 6:17 PM CONSTRUCTION AND MAINTENANCE INSPECTOR EXTRA TUBE STAT 05/13/2024 6:17 PM CONSTRUCTION AND MAINTENANCE INSPECTOR LACTATE DEHYDROGENASE STAT 05/13/2024 6:16 PM CONSTRUCTION AND MAINTENANCE INSPECTOR CBC WITH PLATELETS & DIFFERENTIAL STAT 05/13/2024 4:57 PM CONSTRUCTION AND MAINTENANCE INSPECTOR MANUAL DIFFERENTIAL STAT 05/13/2024 4 :57 PM CONSTRUCTION AND MAINTENANCE INSPECTOR CBC WITH PLATELETS AND DIFFERENTIAL STAT 05/13/2024 4:57 PM CONSTRUCTION AND MAINTENANCE INSPECTOR TROPONIN T, HIGH SENSITIVITY STAT 05/13/2024 4:57 PM CONSTRUCTION AND MAINTENANCE INSPECTOR RETICULOCYTE COUNT STAT 05/13/2024 4: 57 PM CONSTRUCTION AND MAINTENANCE INSPECTOR HEPATIC FUNCTION PANEL STAT 4:57 PM CONSTRUCTION AND MAINTENANCE INSPECTOR BASIC METABOLIC PANEL STAT 05/13/2024 4:57 PM CONSTRUCTION AND MAINTENANCE INSPECTOR ECG 12-LEAD WITH MUSE SJN,SJO,WWH STAT 05/13/2024 3:38 PM CONSTRUCTION AND MAINTENANCE INSPECTOR INFLUENZA A/B, RSV AND SARS-COV2 PCR STAT 05/08/2024 7:33 PM CONSTRUCTION AND MAINTENANCE INSPECTOR XR CHEST 2 VIEWS STAT 05/08/2024 5:27 PM CONSTRUCTION AND MAINTENANCE INSPECTOR CBC WITH PLATELETS & DIFFERENTIAL STAT 05/08/2024 4:14 PM CONSTRUCTION AND MAINTENANCE INSPECTOR RBC AND PLATELET MORPHOLOGY STAT 05/08/2024 4:14 PM CONSTRUCTION AND MAINTENANCE INSPECTOR CBC WITH PLATELETS AND DIFFERENTIAL STAT 05/08/2024 4:14 PM CONSTRUCTION AND MAINTENANCE INSPECTOR HCG QUALITATIVE STAT 05/08/2024 4:14 PM CONSTRUCTION AND MAINTENANCE INSPECTOR INR STAT 05/08/2024 4:14 PM CONSTRUCTION AND MAINTENANCE INSPECTOR TROPONIN T, HIGH SENSITIVITY STAT 05/08/2024 4:14 PM CONSTRUCTION AND MAINTENANCE INSPECTOR RETICULOCYTE COUNT STAT 05/08/2024 4: 14 PM CONSTRUCTION AND MAINTENANCE INSPECTOR COMPREHENSIVE METABOLIC PANEL STAT 05/08/2024 4:14 PM CONSTRUCTION AND MAINTENANCE INSPECTOR ECG 12-LEAD WITH MUSE SJN,SJO,WWH STAT 05/08/2024 3:13 PM CONSTRUCTION AND MAINTENANCE INSPECTOR ECG 12-LEAD WITH MUSE SJN,SJO,WWH STAT 05/06/2024 7:51 PM CONSTRUCTION AND MAINTENANCE INSPECTOR CBC WITH PLATELETS & DIFFERENTIAL STAT 05/06/2024 7:43 PM CONSTRUCTION AND MAINTENANCE INSPECTOR RBC AND PLATELET MORPHOLOGY STAT 05/06/2024 7:43 PM CONSTRUCTION AND MAINTENANCE INSPECTOR CBC WITH PLATELETS AND DIFFERENTIAL STAT 05/06/2024 7:43 PM CONSTRUCTION AND MAINTENANCE INSPECTOR HEPATIC FUNCTION PANEL STAT 7:43 PM CONSTRUCTION AND MAINTENANCE INSPECTOR RETICULOCYTE COUNT STAT 05/06/2024 7: 43 PM CONSTRUCTION AND MAINTENANCE INSPECTOR TROPONIN T, HIGH SENSITIVITY STAT 05/06/2024 7:43 PM CONSTRUCTION AND MAINTENANCE INSPECTOR BASIC METABOLIC PANEL STAT 05/06/2024 7:43 PM CONSTRUCTION AND MAINTENANCE INSPECTOR XR CHEST 2 VIEWS STAT 05/05/2024 12:16 PM CONSTRUCTION AND MAINTENANCE INSPECTOR CBC WITH PLATELETS & DIFFERENTIAL STAT 05/05/2024 11:50 AM CONSTRUCTION AND MAINTENANCE INSPECTOR RBC AND PLATELET MORPHOLOGY STAT 05/05/2024 11:50 AM CONSTRUCTION AND MAINTENANCE INSPECTOR CBC WITH PLATELETS AND DIFFERENTIAL STAT 05/05/2024 11:50 AM CONSTRUCTION AND MAINTENANCE INSPECTOR TROPONIN T, HIGH SENSITIVITY STAT 05/05/2024 11:50 AM CONSTRUCTION AND MAINTENANCE INSPECTOR RETICULOCYTE COUNT STAT 05/05/2024 11:50 AM CONSTRUCTION AND MAINTENANCE INSPECTOR BASIC METABOLIC PANEL STAT 05/05/2024 11:50 AM CONSTRUCTION AND MAINTENANCE INSPECTOR ECG 12-LEAD WITH MUSE SJN,SJO,WWH STAT 05/05/2024 11:03 AM CONSTRUCTION AND MAINTENANCE INSPECTOR CBC WITH PLATELETS & DIFFERENTIAL STAT 04/28/2024 1:50 AM CONSTRUCTION AND MAINTENANCE INSPECTOR VITAMIN D DEFICIENCY SCREENING Add-On 04/28/2024 1:50 AM CONSTRUCTION AND MAINTENANCE INSPECTOR Sickle cell pain crisis (H) MANUAL DIFFERENTIAL STAT 04/28/2024 1 :50 AM CONSTRUCTION AND MAINTENANCE INSPECTOR CBC WITH PLATELETS AND DIFFERENTIAL STAT 04/28/2024 1:50 AM CONSTRUCTION AND MAINTENANCE INSPECTOR RETICULOCYTE COUNT STAT 04/28/2024 1: 50 AM CONSTRUCTION AND MAINTENANCE INSPECTOR COMPREHENSIVE METABOLIC PANEL STAT 04/28/2024 1:50 AM CONSTRUCTION AND MAINTENANCE INSPECTOR CBC WITH PLATELETS & DIFFERENTIAL STAT 04/27/2024 12:23 AM CONSTRUCTION AND MAINTENANCE INSPECTOR RBC AND PLATELET MORPHOLOGY STAT 04/27/2024 12:23 AM CONSTRUCTION AND MAINTENANCE INSPECTOR CBC WITH PLATELETS AND DIFFERENTIAL STAT 04/27/2024 12:23 AM CONSTRUCTION AND MAINTENANCE INSPECTOR RETICULOCYTE COUNT STAT 04/27/2024 12:23 AM CONSTRUCTION AND MAINTENANCE INSPECTOR COMPREHENSIVE METABOLIC PANEL STAT 04/27/2024 12:23 AM CONSTRUCTION AND MAINTENANCE INSPECTOR CT PELVIS BONE WO CONTRAST STAT 04/19/2024 3:22 AM CONSTRUCTION AND MAINTENANCE INSPECTOR HCG QUALITATIVE URINE STAT 04/19/2024 2:17 AM CONSTRUCTION AND MAINTENANCE INSPECTOR ROUTINE UA WITH MICROSCOPIC REFLEX TO CULTURE STAT 04/19/2024 2:16 AM CONSTRUCTION AND MAINTENANCE INSPECTOR CBC WITH PLATELETS & DIFFERENTIAL STAT 04/19/2024 2:11 AM CONSTRUCTION AND MAINTENANCE INSPECTOR MANUAL DIFFERENTIAL STAT 04/19/2024 2 :11 AM CONSTRUCTION AND MAINTENANCE INSPECTOR CBC WITH PLATELETS AND DIFFERENTIAL STAT 04/19/2024 2:11 AM CONSTRUCTION AND MAINTENANCE INSPECTOR RETICULOCYTE COUNT STAT 04/19/2024 2: 11 AM CONSTRUCTION AND MAINTENANCE INSPECTOR BASIC METABOLIC PANEL STAT 04/19/2024 2:11 AM CONSTRUCTION AND MAINTENANCE INSPECTOR CBC WITH PLATELETS & DIFFERENTIAL Routine 04/10/2024 5:35 AM CONSTRUCTION AND MAINTENANCE INSPECTOR CBC WITH PLATELETS AND DIFFERENTIAL Routine 04/10/2024 5:35 AM CONSTRUCTION AND MAINTENANCE INSPECTOR CBC WITH PLATELETS STAT 04/09/2024 6: 13 AM CONSTRUCTION AND MAINTENANCE INSPECTOR BASIC METABOLIC PANEL STAT 04/09/2024 6:13 AM CONSTRUCTION AND MAINTENANCE INSPECTOR CBC WITH PLATELETS & DIFFERENTIAL STAT 04/08/2024 10:22 PM CONSTRUCTION AND MAINTENANCE INSPECTOR EXTRA RED TOP TUBE STAT 04/08/2024 10:22 PM CONSTRUCTION AND MAINTENANCE INSPECTOR EXTRA BLUE TOP TUBE STAT 04/08/2024 10:22 PM CONSTRUCTION AND MAINTENANCE INSPECTOR CBC WITH PLATELETS AND DIFFERENTIAL STAT 04/08/2024 10:22 PM CONSTRUCTION AND MAINTENANCE INSPECTOR EXTRA TUBE STAT 04/08/2024 10:22 PM CONSTRUCTION AND MAINTENANCE INSPECTOR BASIC METABOLIC PANEL STAT 04/08/2024 10:22 PM CONSTRUCTION AND MAINTENANCE INSPECTOR RETICULOCYTE COUNT STAT 04/08/2024 10:22 PM CONSTRUCTION AND MAINTENANCE INSPECTOR ECG 12-LEAD WITH MUSE SJN,SJO,WWH STAT 04/08/2024 9:45 PM CONSTRUCTION AND MAINTENANCE INSPECTOR CT CHEST PULMONARY EMBOLISM W CONTRAST STAT 04/06/2024 2:22 AM CONSTRUCTION AND MAINTENANCE INSPECTOR D DIMER QUANTITATIVE STAT 04/06/2024 12:45 AM CONSTRUCTION AND MAINTENANCE INSPECTOR TROPONIN T, HIGH SENSITIVITY STAT 04/06/2024 12:45 AM CONSTRUCTION AND MAINTENANCE INSPECTOR BASIC METABOLIC PANEL STAT 04/06/2024 12:45 AM CONSTRUCTION AND MAINTENANCE INSPECTOR CBC WITH PLATELETS AND DIFFERENTIAL STAT 04/06/2024 12:43 AM CONSTRUCTION AND MAINTENANCE INSPECTOR ECG 12-LEAD WITH MUSE SJN,SJO,WWH STAT 04/06/2024 12:41 AM CONSTRUCTION AND MAINTENANCE INSPECTOR CBC WITH PLATELETS & DIFFERENTIAL STAT 04/05/2024 11:47 PM CONSTRUCTION AND MAINTENANCE INSPECTOR from Last 3 Months Results * (ABNORMAL) UA with Microscopic reflex to Culture (06/24/2024 10:15 AM CONSTRUCTION AND MAINTENANCE INSPECTOR) Only the most recent of4 resultswithin the time period is included. Color Urine Light Yellow Colorless, Straw, Light Yellow, Yellow 06/24/2024 10:25 AM CONSTRUCTION AND MAINTENANCE INSPECTOR [facility] Appearance Urine Clear Clear 06/25/19 10:25 AM CONSTRUCTION AND MAINTENANCE INSPECTOR [facility] Glucose Urine Negative Negative mg/dL 06/24/2024 10:25 AM CONSTRUCTION AND MAINTENANCE INSPECTOR [facility] Bilirubin Urine Negative Negative 10:25 AM CONSTRUCTION AND MAINTENANCE INSPECTOR [facility] Ketones Urine Negative Negative mg/dL 06/24/2024 10:25 AM CONSTRUCTION AND MAINTENANCE INSPECTOR [facility] Specific [place] Urine 1.009 1.003 - 1.035 06/24/2024 10:25 AM CONSTRUCTION AND MAINTENANCE INSPECTOR [facility] Blood Urine Negative Negative 06/24/2024 10:25 AM CONSTRUCTION AND MAINTENANCE INSPECTOR [facility] pH Urine 7.5(H) 5.0 - 7.0 06/24/2024 10:25 AM CONSTRUCTION AND MAINTENANCE INSPECTOR [facility] Protein Albumin Urine Negative Negative mg/dL 06/24/2024 10:25 AM CONSTRUCTION AND MAINTENANCE INSPECTOR [facility] Urobilinogen Urine Normal Normal, 2.0 mg/dL 06/24/2024 10:25 AM CONSTRUCTION AND MAINTENANCE INSPECTOR [facility] Nitrite Urine Negative Negative 06/24/2024 10:25 AM CONSTRUCTION AND MAINTENANCE INSPECTOR [facility] Leukocyte Esterase Urine Negative Negative 06/24/2024 10:25 AM CONSTRUCTION AND MAINTENANCE INSPECTOR [facility] RBC Urine <1 <=2 /HPF 06/24/2024 10:25 AM CONSTRUCTION AND MAINTENANCE INSPECTOR [facility] WBC Urine <1 <=5 /HPF 06/24/2024 10:25 AM CONSTRUCTION AND MAINTENANCE INSPECTOR [facility] Squamous Epithelials Urine 11(H) <=1 /HPF 06/24/2024 10:25 AM CONSTRUCTION AND MAINTENANCE INSPECTOR [facility] Hyaline Casts Urine 1 <=2 /LPF 06/24/2024 10:25 AM CONSTRUCTION AND MAINTENANCE INSPECTOR [facility] Urine MID-STREAM URINE SPECIMEN / Unknown Non-blood Collection / Unknown 06/24/2024 10:15 AM CONSTRUCTION AND MAINTENANCE INSPECTOR 06/24/2024 10:20 AM CONSTRUCTION AND MAINTENANCE INSPECTOR Narrative [facility] - 06/24/2024 10:25 AM CONSTRUCTION AND MAINTENANCE INSPECTOR Urine Culture not indicated us Richar Mahajan MD LAB - URINE ORDERABLES Liss bola Result [facility] [address] [facility] [address], [address] [facility] [place] [address], [place] * (ABNORMAL) CBC with platelets and differential (06/24/2024 10:11 AM CONSTRUCTION AND MAINTENANCE INSPECTOR) Only the most recent of30 resultswithin the time period is included. WBC Count 7.8 4.0 - 11.0 10e3/uL 06/24/2024 10:28 AM CONSTRUCTION AND MAINTENANCE INSPECTOR [facility] RBC Count 2.49(L) 3.80 - 5.20 10e6/uL 06/24/2024 10:28 AM CONSTRUCTION AND MAINTENANCE INSPECTOR [facility] Hemoglobin 7.9(L) 11.7 - 15.7 g/dL 06/24/2024 10:28 AM CONSTRUCTION AND MAINTENANCE INSPECTOR [facility] Hematocrit 24.8(L) 35.0 - 47.0 % 06/24/2024 10:28 AM CONSTRUCTION AND MAINTENANCE INSPECTOR [facility] MCV 100 78 - 100 fL 06/24/2024 10:28 AM CONSTRUCTION AND MAINTENANCE INSPECTOR [facility] MCH 31.7 26.5 - 33.0 pg 06/24/2024 10:28 AM CONSTRUCTION AND MAINTENANCE INSPECTOR [facility] MCHC 31.9 31.5 - 36.5 g/dL 06/24/2024 10:28 AM CONSTRUCTION AND MAINTENANCE INSPECTOR [facility] RDW 19.0(H) 10.0 - 15.0 % 06/24/2024 10:28 AM CONSTRUCTION AND MAINTENANCE INSPECTOR [facility] Platelet Count 482(H) 150 - 450 10e3/uL 06/24/2024 10:28 AM CONSTRUCTION AND MAINTENANCE INSPECTOR [facility] % Neutrophils 61 % 06/24/2024 10:28 AM CONSTRUCTION AND MAINTENANCE INSPECTOR [facility] % Lymphocytes 26 % 06/24/2024 10:28 AM CONSTRUCTION AND MAINTENANCE INSPECTOR [facility] % Monocytes 9 % 06/24/2024 10:28 AM CONSTRUCTION AND MAINTENANCE INSPECTOR [facility] % Eosinophils 1 % 06/24/2024 10:28 AM CONSTRUCTION AND MAINTENANCE INSPECTOR [facility] % Basophils 2 % 06/24/2024 10:28 AM CONSTRUCTION AND MAINTENANCE INSPECTOR [facility] % Immature Granulocytes 1 % 06/24/2024 10:28 AM CONSTRUCTION AND MAINTENANCE INSPECTOR [facility] NRBCs per 100 WBC 5(H) <1 /100 025 10:28 AM CONSTRUCTION AND MAINTENANCE INSPECTOR [facility] Absolute Neutrophils 4.8 1.6 - 8.3 10e3/uL 06/24/2024 10:28 AM CONSTRUCTION AND MAINTENANCE INSPECTOR [facility] Absolute Lymphocytes 2.1 0.8 - 5.3 10e3/uL 06/24/2024 10:28 AM CONSTRUCTION AND MAINTENANCE INSPECTOR [facility] Absolute Monocytes 0.7 0.0 - 1.3 10e3/uL 06/24/2024 10:28 AM CONSTRUCTION AND MAINTENANCE INSPECTOR [facility] Absolute Eosinophils 0.1 0.0 - 0.7 10e3/uL 06/24/2024 10:28 AM CONSTRUCTION AND MAINTENANCE INSPECTOR [facility] Absolute Basophils 0.1 0.0 - 0.2 10e3/uL 06/24/2024 10:28 AM CONSTRUCTION AND MAINTENANCE INSPECTOR [facility] Absolute Immature Granulocytes 0.1 <=0.4 10e3/uL 06/24/2024 10:28 AM CONSTRUCTION AND MAINTENANCE INSPECTOR [facility] Absolute NRBCs 0.4 10e3/uL 06/24/2024 10:28 AM CONSTRUCTION AND MAINTENANCE INSPECTOR [facility] Blood BLOOD SPECIMEN / Unknown Venipuncture / Unknown 06/24/2024 10:11 AM CONSTRUCTION AND MAINTENANCE INSPECTOR 06/24/2024 10:22 AM CONSTRUCTION AND MAINTENANCE INSPECTOR Richar Mahajan MD LAB - BLOOD ORDERABLES Liss l Result [facility] [address] [facility] * (ABNORMAL) Reticulocyte count (06/24/2024 10:11 AM CONSTRUCTION AND MAINTENANCE INSPECTOR) Only the most recent of21 resultswithin the time period is included. % Reticulocyte 11.2(H) 0.5 - 2.0 % 06/24/2024 10:28 AM CONSTRUCTION AND MAINTENANCE INSPECTOR [facility] Absolute Reticulocyte 0.280(H) 0.025 - 0.095 10e6/uL 06/24/2024 10:28 AM CONSTRUCTION AND MAINTENANCE INSPECTOR [facility] Blood BLOOD SPECIMEN / Unknown Venipuncture / Unknown 06/24/2024 10:11 AM CONSTRUCTION AND MAINTENANCE INSPECTOR 06/24/2024 10:22 AM CONSTRUCTION AND MAINTENANCE INSPECTOR Richar Mahajan MD LAB - BLOOD ORDERABLES Liss l Result [facility] [address] [facility], [address] [place] [address] * (ABNORMAL) INR (06/24/2024 10:11 AM CONSTRUCTION AND MAINTENANCE INSPECTOR) Only the most recent of3 resultswithin the time period is included. INR 1.45(H) 0.85 - 1.15 06/24/2024 10:54 AM CONSTRUCTION AND MAINTENANCE INSPECTOR [facility] Blood BLOOD SPECIMEN / Unknown Venipuncture / Unknown 06/24/2024 10:11 AM CONSTRUCTION AND MAINTENANCE INSPECTOR 06/24/2024 10:21 AM CONSTRUCTION AND MAINTENANCE INSPECTOR us Richar Mahajan MD LAB - BLOOD ORDERABLES Liss l Result LABORATORY [facility] [address] [facility] * Partial thromboplastin time (06/24/2024 10:11 AM CONSTRUCTION AND MAINTENANCE INSPECTOR) aPTT 32 22 - 38 Seconds 06/24/2024 10:55 AM CONSTRUCTION AND MAINTENANCE INSPECTOR [facility] Blood BLOOD SPECIMEN / Unknown Venipuncture / Unknown 06/24/2024 10:11 AM CONSTRUCTION AND MAINTENANCE INSPECTOR 06/24/2024 10:21 AM CONSTRUCTION AND MAINTENANCE INSPECTOR us Richar Mahajan MD LAB - BLOOD ORDERABLES Liss l Result LABORATORY [facility] [address] [facility] * Magnesium (06/24/2024 10:11 AM CONSTRUCTION AND MAINTENANCE INSPECTOR) Magnesium 2.1 1.7 - 2.3 mg/dL 06/24/2024 10:51 AM CONSTRUCTION AND MAINTENANCE INSPECTOR [facility] Blood BLOOD SPECIMEN / Unknown Venipuncture / Unknown 06/24/2024 10:11 AM CONSTRUCTION AND MAINTENANCE INSPECTOR 06/24/2024 10:21 AM CONSTRUCTION AND MAINTENANCE INSPECTOR us Richar Mahajan MD LAB - BLOOD ORDERABLES Liss l Result U LABORATORY [facility] [place] [facility] [address] [facility] * HCG qualitative Blood (06/24/2024 10:11 AM CONSTRUCTION AND MAINTENANCE INSPECTOR) Only the most recent of6 resultswithin the time period is included. hCG Serum Qualitative Negative Negative JARET 06/24/2024 10:33 AM CONSTRUCTION AND MAINTENANCE INSPECTOR [facility] Comment:This test is for scr eening purposes. Results should be interpreted along with the clinical picture. Confirmation testing is available if warranted by ordering [id number], HCG Quantitative . Blood BLOOD SPECIMEN / Unknown Venipuncture / Unknown 06/24/2024 10:11 AM CONSTRUCTION AND MAINTENANCE INSPECTOR 06/24/2024 10:20 AM CONSTRUCTION AND MAINTENANCE INSPECTOR Richar Mahajan MD LAB - BLOOD ORDERABLES Liss l Result LABORATORY [facility] [place] [facility] [address] [facility] * (ABNORMAL) Comprehensive metabolic panel (06/24/2024 10:11 AM CONSTRUCTION AND MAINTENANCE INSPECTOR) Only the most recent of12 resultswithin the time period is included. Pathologist [facility] Sodium 138 135 - 145 mmol/L 06/24/2024 10:51 AM CONSTRUCTION AND MAINTENANCE INSPECTOR [facility] Potassium 4.3 3.4 - 5.3 mmol/L 06/24/2024 10:51 AM CONSTRUCTION AND MAINTENANCE INSPECTOR [facility] Carbon Dioxide (CO2) 20(L) 22 - 29 mmol/L 06/24/2024 10:51 AM CONSTRUCTION AND MAINTENANCE INSPECTOR [facility] Anion Gap 10 7 - 15 mmol/L 06/24/2024 10:51 AM CONSTRUCTION AND MAINTENANCE INSPECTOR [facility] Urea Nitrogen 9.9 6.0 - 20.0 mg/dL 06/24/2024 10:51 AM CONSTRUCTION AND MAINTENANCE INSPECTOR [facility] Creatinine 0.62 0.51 - 0.95 mg/dL 06/24/2024 10:51 AM CONSTRUCTION AND MAINTENANCE INSPECTOR [facility] GFR Estimate >90 >60 mL/min/1.7 3m2 06/24/2024 10:51 AM CONSTRUCTION AND MAINTENANCE INSPECTOR [facility] Comment:eGFR calculated us2020 CKD-EPI equation. Calcium 8.7(L) 8.8 - 10.4 mg/dL 06/24/2024 10:51 AM CONSTRUCTION AND MAINTENANCE INSPECTOR [facility] Chloride 108(H) 98 - 107 mmol/L 06/24/2024 10:51 AM CONSTRUCTION AND MAINTENANCE INSPECTOR [facility] Glucose 98 70 - 99 mg/dL 06/24/2024 10:51 AM CONSTRUCTION AND MAINTENANCE INSPECTOR [facility] Alkaline Phosphatase 119 40 - 150 U/L 06/24/2024 10:51 AM CONSTRUCTION AND MAINTENANCE INSPECTOR [facility] AST 57(H) 0 - 45 U/L 06/24/2024 10:51 AM CONSTRUCTION AND MAINTENANCE INSPECTOR [facility] ALT 53(H) 0 - 50 U/L 06/24/2024 10:51 AM CONSTRUCTION AND MAINTENANCE INSPECTOR [facility] Protein Total 7.4 6.4 - 8.3 g/dL 06/24/2024 10:51 AM CONSTRUCTION AND MAINTENANCE INSPECTOR [facility] Albumin 4.0 3.5 - 5.2 g/dL 06/24/2024 10:51 AM CONSTRUCTION AND MAINTENANCE INSPECTOR [facility] Bilirubin Total 1.1 <=1.2 mg/dL 06/24/2024 10:51 AM CONSTRUCTION AND MAINTENANCE INSPECTOR [facility] Blood BLOOD SPECIMEN / Unknown Venipuncture / Unknown 06/24/2024 10:11 AM CONSTRUCTION AND MAINTENANCE INSPECTOR 06/24/2024 10:21 AM CONSTRUCTION AND MAINTENANCE INSPECTOR us Richar Mahajan MD LAB - BLOOD ORDERABLES [place] Result [facility] [place] [facility] [address] [facility], [address] [place] [phone] * (ABNORMAL) Manual Differential (06/23/2024 6:22 PM CONSTRUCTION AND MAINTENANCE INSPECTOR) Only the most recent of2 resultswithin the time period is included. % Neutrophils 73 % 06/23/2024 7:05 PM CONSTRUCTION AND MAINTENANCE INSPECTOR [facility] % Lymphocytes 24 % 06/23/2024 7:05 PM CONSTRUCTION AND MAINTENANCE INSPECTOR [facility] % Monocytes 2 % 06/23/2024 7:05 PM CONSTRUCTION AND MAINTENANCE INSPECTOR [facility] % Eosinophils 0 % 06/23/2024 7:05 PM CONSTRUCTION AND MAINTENANCE INSPECTOR [facility] % Basophils 2 % 06/23/2024 7:05 PM CONSTRUCTION AND MAINTENANCE INSPECTOR [facility] NRBCs per 100 WBC 12(H) <=0 % 06/23/2024 7:05 PM CONSTRUCTION AND MAINTENANCE INSPECTOR [facility] Absolute Neutrophils 7.2 1.6 - 8.3 10e3/uL 06/23/2024 7:05 PM CONSTRUCTION AND MAINTENANCE INSPECTOR [facility] Absolute Lymphocytes 2.3 0.8 - 5.3 10e3/uL 06/23/2024 7:05 PM CONSTRUCTION AND MAINTENANCE INSPECTOR [facility] Absolute Monocytes 0.2 0.0 - 1.3 10e3/uL 06/23/2024 7:05 PM CONSTRUCTION AND MAINTENANCE INSPECTOR [facility] Absolute Eosinophils 0.0 0.0 - 0.7 10e3/uL 06/23/2024 7:05 PM CONSTRUCTION AND MAINTENANCE INSPECTOR [facility] Absolute Basophils 0.2 0.0 - 0.2 10e3/uL 06/23/2024 7:05 PM CONSTRUCTION AND MAINTENANCE INSPECTOR [facility] Absolute NRBCs 1.2(H) <=0.0 10e3/uL 025 7:05 PM CONSTRUCTION AND MAINTENANCE INSPECTOR [facility] RBC Morphology Confirmed RBC Indices 06/23/2024 7:05 PM CONSTRUCTION AND MAINTENANCE INSPECTOR [facility] Platelet Assessment Automated Count Confirmed. Platelet morphology is normal. Automated Count Confirmed. Platelet morphology is normal. 06/23/2024 7:05 PM CONSTRUCTION AND MAINTENANCE INSPECTOR [facility] Polychromasia Slight(A) None Seen 06/23/2024 7:05 PM CONSTRUCTION AND MAINTENANCE INSPECTOR [facility] Sickle Cells Slight(A) None Seen 06/23/2024 7:05 PM CONSTRUCTION AND MAINTENANCE INSPECTOR [facility] Target Cells Slight(A) None Seen 06/23/2024 7:05 PM CONSTRUCTION AND MAINTENANCE INSPECTOR [facility] Blood BLOOD SPECIMEN / Unknown Venipuncture / Unknown 06/23/2024 6:22 PM CONSTRUCTION AND MAINTENANCE INSPECTOR 06/23/2024 6:34 PM CONSTRUCTION AND MAINTENANCE INSPECTOR us Dayna Crane MD LAB - BLOOD ORDERABLES Final Re sult [facility] [place] [facility] [address] [facility], [address] [place] [address], [place] * (ABNORMAL) Lactate Dehydrogenase (06/20/2024 5:48 AM CONSTRUCTION AND MAINTENANCE INSPECTOR) Only the most recent of4 resultswithin the time period is included. Lactate Dehydrogenase 571(H) 0 - 250 U/L 06/20/2024 6:35 AM CONSTRUCTION AND MAINTENANCE INSPECTOR [facility] Blood (Portacath) IVAD (Port) / Unknown 06/20/2024 5:48 AM CONSTRUCTION AND MAINTENANCE INSPECTOR 06/20/2024 5:55 AM CONSTRUCTION AND MAINTENANCE INSPECTOR Polly Allen MD LAB - BLOOD ORDER SYD Final Result [facility] [place] [facility] [address] [facility], [address] [place] [address] * (ABNORMAL) RBC and Platelet Morphology (06/19/2024 9:30 AM CONSTRUCTION AND MAINTENANCE INSPECTOR) Only the most recent of14 resultswithin the time period is included. RBC Morphology Confirmed RBC Indices 06/19/2024 11:43 AM CONSTRUCTION AND MAINTENANCE INSPECTOR [facility] Platelet Assessment Automated Count Confirmed. Giant platelets are present.(A) Automated Count Confirmed. Platelet morphology is normal. 06/19/2024 11:43 AM CONSTRUCTION AND MAINTENANCE INSPECTOR [facility] Giant Platelets Slight(A) None Seen 11:43 AM CONSTRUCTION AND MAINTENANCE INSPECTOR [facility] Elliptocytes None Seen None Seen 06/19/2024 11:43 AM CONSTRUCTION AND MAINTENANCE INSPECTOR [facility] Polychromasia Slight(A) None Seen 06/19/2024 11:43 AM CONSTRUCTION AND MAINTENANCE INSPECTOR [facility] RBC Fragments Slight(A) None Seen 06/19/2024 11:43 AM CONSTRUCTION AND MAINTENANCE INSPECTOR [facility] Reactive Lymphocytes Present(A) None Seen 06/19/2024 11:43 AM CONSTRUCTION AND MAINTENANCE INSPECTOR [facility] Sickle Cells Moderate(A) None Seen 06/19/2024 11:43 AM CONSTRUCTION AND MAINTENANCE INSPECTOR [facility] Smudge Cells Present(A) None Seen 06/19/2024 11:43 AM CONSTRUCTION AND MAINTENANCE INSPECTOR [facility] Target Cells Moderate(A) None Seen 06/19/2024 11:43 AM CONSTRUCTION AND MAINTENANCE INSPECTOR [facility] Blood CENTRAL VENOUS CATHETER / Unknown VAD(CVC, PICC) / Unknown 06/19/2024 9:30 AM CONSTRUCTION AND MAINTENANCE INSPECTOR 06/19/2024 9:42 AM CONSTRUCTION AND MAINTENANCE INSPECTOR Polly Allen MD LAB - BLOOD ORDER SYD Final Result LABORATORY [facility] [place] [facility] [address] [facility], [address] [phone] * (ABNORMAL) Platelet count (06/19/2024 12:17 AM CONSTRUCTION AND MAINTENANCE INSPECTOR) Platelet Count 467(H) 150 - 450 10e3/uL 06/19/2024 12:44 AM CONSTRUCTION AND MAINTENANCE INSPECTOR [facility] Blood BLOOD SPECIMEN / Unknown Venipuncture / Unknown 06/19/2024 12:17 AM CONSTRUCTION AND MAINTENANCE INSPECTOR 06/19/2024 12:26 AM CONSTRUCTION AND MAINTENANCE INSPECTOR Laquita Kelley MD LAB - BLOOD ORDERABLES Final Re sult LABORATORY [facility] [address] [facility], [address] [phone] * Creatinine (06/19/2024 12:17 AM CONSTRUCTION AND MAINTENANCE INSPECTOR) Creatinine 0.72 0.51 - 0.95 mg/dL 06/19/2024 12:51 AM CONSTRUCTION AND MAINTENANCE INSPECTOR [facility] GFR Estimate >90 >60 mL/min/1.7 3m2 06/19/2024 12:51 AM CONSTRUCTION AND MAINTENANCE INSPECTOR [facility] Comment:eGFR calculated 2020 CKD-EPI equation. Blood BLOOD SPECIMEN / Unknown Venipuncture / Unknown 06/19/2024 12:17 AM CONSTRUCTION AND MAINTENANCE INSPECTOR 06/19/2024 12:26 AM CONSTRUCTION AND MAINTENANCE INSPECTOR Laquita Kelley MD LAB - BLOOD ORDERABLES Final Re sult LABORATORY [facility] [place] [facility] [address] [facility], [address] [phone] * Transfuse red blood cells (unit), Sickle Cell (Hgb S) Negative (06/17/2024 2:33 PM CONSTRUCTION AND MAINTENANCE INSPECTOR) Only the most recent of2 resultswithin the time period is included. us Drake Nina MD BLOOD TRANSFUSION ORDERABLES Final Result * Prepare red blood cells (unit) (06/17/2024 9:12 AM CONSTRUCTION AND MAINTENANCE INSPECTOR) Only the most recent of2 resultswithin the time period is included. Blood Component Type Red Blood Cells [facility] Product Code [id number] [facility] Unit Status Transfused [facility] Unit Number [id number] [facility] B LOOD BANK CROSSMATCH COMPATIBLE [facility] CODING SYSTEM [id number] [facility] BLO OD BANK ISSUE DATE AND TIME [id number] [facility] UNIT ABO/RH A+ [facility] UNIT TYPE ISBT 6200 [facility] BL OOD BANK 06/17/2024 9:12 AM CONSTRUCTION AND MAINTENANCE INSPECTOR us Drake Nina MD BLOOD BANK PRODUCT ORDERABLES Final Result Performing Organization Address City/[facility] Co de Phone Number BLOOD BANK [address] [place] [address] * (ABNORMAL) Transferrin (06/17/2024 6:16 AM CONSTRUCTION AND MAINTENANCE INSPECTOR) Pathologist [facility] Transferrin 100.0(L) 200.0 - 360.0 mg/dL 06/17/2024 9:36 AM CONSTRUCTION AND MAINTENANCE INSPECTOR [facility] Blood VENOUS LINE / Unknown IVAD (Port) / Unknown 06/17/2024 6:16 AM CONSTRUCTION AND MAINTENANCE INSPECTOR 06/17/2024 6:27 AM CONSTRUCTION AND MAINTENANCE INSPECTOR us Drake Nina MD LAB - BLOOD ORDERABLES Final Result U LABORATORY [facility] [place] [facility] [address] [facility], [address] [place] [phone] * Iron and iron binding capacity (06/17/2024 6:16 AM CONSTRUCTION AND MAINTENANCE INSPECTOR) [facility] Iron 123 37 - 145 ug/dL 06/17/2024 10:02 AM CONSTRUCTION AND MAINTENANCE INSPECTOR [facility] Iron Binding Capacity 06/17/2024 10:02 AM CONSTRUCTION AND MAINTENANCE INSPECTOR [facility] Comment:Unable to calculate: UIBC or Iron value is outside detectable level. Iron Sat Index 06/17/2024 10:02 AM CONSTRUCTION AND MAINTENANCE INSPECTOR [facility] Comment:Unable to calculate: UIBC or Iron value is outside detectable level. Blood VENOUS LINE / Unknown IVAD (Port) / Unknown 06/17/2024 6:16 AM CONSTRUCTION AND MAINTENANCE INSPECTOR 06/17/2024 6:27 AM CONSTRUCTION AND MAINTENANCE INSPECTOR Drake Nina MD LAB - BLOOD ORDERABLES Final Result [facility] [place] [facility] [address] [facility], [address] [place] [address] * (ABNORMAL) Basic metabolic panel (06/17/2024 6:16 AM CONSTRUCTION AND MAINTENANCE INSPECTOR) Only the most recent of20 resultswithin the time period is included. Sodium 134(L) 135 - 145 mmol/L 06/17/2024 6:55 AM CONSTRUCTION AND MAINTENANCE INSPECTOR [facility] Potassium 4.6 3.4 - 5.3 mmol/L 06/17/2024 6:55 AM CONSTRUCTION AND MAINTENANCE INSPECTOR [facility] Chloride 105 98 - 107 mmol/L 06/17/2024 6:55 AM CONSTRUCTION AND MAINTENANCE INSPECTOR [facility] Carbon Dioxide (CO2) 20(L) 22 - 29 mmol/L 06/17/2024 6:55 AM CONSTRUCTION AND MAINTENANCE INSPECTOR [facility] Anion Gap 9 7 - 15 mmol/L 06/17/2024 6:55 AM CONSTRUCTION AND MAINTENANCE INSPECTOR [facility] Urea Nitrogen 16.1 6.0 - 20.0 mg/dL 06/17/2024 6:55 AM CONSTRUCTION AND MAINTENANCE INSPECTOR [facility] Creatinine 0.90 0.51 - 0.95 mg/dL 06/17/2024 6:55 AM CONSTRUCTION AND MAINTENANCE INSPECTOR [facility] GFR Estimate 88 >60 mL/min/1.7 3m2 06/17/2024 6:55 AM CONSTRUCTION AND MAINTENANCE INSPECTOR [facility] Comment:eGFR calculated 2020 CKD-EPI equation. Calcium 8.4(L) 8.8 - 10.4 mg/dL 06/17/2024 6:55 AM CONSTRUCTION AND MAINTENANCE INSPECTOR [facility] Glucose 95 70 - 99 mg/dL 06/17/2024 6:55 AM CONSTRUCTION AND MAINTENANCE INSPECTOR [facility] Blood VENOUS LINE / Unknown IVAD (Port) / Unknown 06/17/2024 6:16 AM CONSTRUCTION AND MAINTENANCE INSPECTOR 06/17/2024 6:27 AM CONSTRUCTION AND MAINTENANCE INSPECTOR Laquita Kelley MD LAB - BLOOD ORDERABLES Final Re sult [facility] [place] [facility] [address] [facility], [address] [phone] * (ABNORMAL) CBC with platelets (06/17/2024 6:16 AM CONSTRUCTION AND MAINTENANCE INSPECTOR) Only the most recent of5 resultswithin the time period is included. Pathologist [facility] WBC Count 14.6(H) 4.0 - 11.0 10e3/uL 06/17/2024 6:38 AM CONSTRUCTION AND MAINTENANCE INSPECTOR [facility] RBC Count 1.97(L) 3.80 - 5.20 10e6/uL 06/17/2024 6:38 AM CONSTRUCTION AND MAINTENANCE INSPECTOR [facility] Hemoglobin 6.3(LL) 11.7 - 15.7 g/dL 06/17/2024 6:38 AM CONSTRUCTION AND MAINTENANCE INSPECTOR [facility] Hematocrit 17.9(L) 35.0 - 47.0 % 06/17/2024 6:38 AM CONSTRUCTION AND MAINTENANCE INSPECTOR [facility] MCV 91 78 - 100 fL 06/17/2024 6:38 AM CONSTRUCTION AND MAINTENANCE INSPECTOR [facility] MCH 32.0 26.5 - 33.0 pg 06/17/2024 6:38 AM CONSTRUCTION AND MAINTENANCE INSPECTOR [facility] MCHC 35.2 31.5 - 36.5 g/dL 06/17/2024 6:38 AM CONSTRUCTION AND MAINTENANCE INSPECTOR [facility] RDW 20.1(H) 10.0 - 15.0 % 06/17/2024 6:38 AM CONSTRUCTION AND MAINTENANCE INSPECTOR [facility] Platelet Count 468(H) 150 - 450 10e3/uL 06/17/2024 6:38 AM CONSTRUCTION AND MAINTENANCE INSPECTOR [facility] Blood VENOUS LINE / Unknown IVAD (Port) / Unknown 06/17/2024 6:16 AM CONSTRUCTION AND MAINTENANCE INSPECTOR 06/17/2024 6:27 AM CONSTRUCTION AND MAINTENANCE INSPECTOR Laquita Kelley MD LAB - BLOOD ORDERABLES Final Re sult [facility] [place] [facility] [address] [facility], [address] [phone] * Troponin T, High Sensitivity (06/16/2024 9:33 PM CONSTRUCTION AND MAINTENANCE INSPECTOR) Only the most recent of10 resultswithin the time period is included. Troponin T, High Sensitivity 8 <=14 ng/L 06/16/2024 10:13 PM CONSTRUCTION AND MAINTENANCE INSPECTOR [facility] Comment: Either a High Sensitivity [...] IVAD (Port) / Unknown 06/16/2024 9:33 PM CONSTRUCTION AND MAINTENANCE INSPECTOR 06/16/2024 9:44 PM CONSTRUCTION AND MAINTENANCE INSPECTOR us Varghese Cipriano Schofield MD LAB - BLOOD ORDERABLE S Final Result U LABORATORY [facility] Core Lab [address] [facility], [address] [phone] * Chest XR, PA & LAT (06/16/2024 6:09 PM CONSTRUCTION AND MAINTENANCE INSPECTOR) Only the most recent of7 resultswithin the time period is included. Anatomical Region Laterality Modality Chest Digital Radiogra phy 06/16/2024 6:09 PM CONSTRUCTION AND MAINTENANCE INSPECTOR Impressions 06/16/2024 6:13 PM CONSTRUCTION AND MAINTENANCE INSPECTOR IMPRESSION: Left chest port catheter in stable position. Stable position of right central venous catheter. No airspace opacity, pleural effusion or pneumothorax. Narrative 06/16/2024 6:13 PM CONSTRUCTION AND MAINTENANCE INSPECTOR EXAM: XR CHEST 2 VIEWS LOCATION: [facility] DATE: 06/16/2024 INDICATION: chest pain COMPARISON: 06/12/2024 Procedure Note Richar Haines MD - 06/16/2024 EXAM: XR CHEST 2 VIEWS LOCATION: [facility] DATE: 06/16/2024 INDICATION: chest pain COMPARISON: 06/12/2024 IMPRESSION: Left chest port catheter in stable position. Stable positionof right central venous catheter. No airspace opacity, pleural effusion orpneumothorax. us Varghesegiulia Schofield MD IMG DIAGNOSTIC IMAGIN G ORDERABLES Final Result * Adult Type and Screen (06/16/2024 5:37 PM CONSTRUCTION AND MAINTENANCE INSPECTOR) Only the most recent of3 resultswithin the time period is included. ABO/RH(D) A POS 06/16/2024 5:08 PM CONSTRUCTION AND MAINTENANCE INSPECTOR [facility] Antibody Screen Negative Negative 06/16/2024 5:08 PM CONSTRUCTION AND MAINTENANCE INSPECTOR U BLOOD BANK Comment:Current antibody scr een is negative. Patient has a history of antibody(ies). A delay in compatible red blood cells may occur. SPECIMEN EXPIRATION DATE [id number] 06/16/2024 5:08 PM CONSTRUCTION AND MAINTENANCE INSPECTOR U BLOOD BANK Blood BLOOD SPECIMEN / Unknown Venipuncture / Unknown 06/16/2024 5:37 PM CONSTRUCTION AND MAINTENANCE INSPECTOR 06/16/2024 5:46 PM CONSTRUCTION AND MAINTENANCE INSPECTOR us Varghese Cipriano Schofield MD LAB - BLOOD BANK TEST ORDER Final Result U BLOOD BANK [address] [place] [address] * (ABNORMAL) Prolactin (06/16/2024 5:37 PM CONSTRUCTION AND MAINTENANCE INSPECTOR) Prolactin 55(H) 5 - 23 ng/mL 06/16/2024 6:24 PM CONSTRUCTION AND MAINTENANCE INSPECTOR [facility] Blood BLOOD SPECIMEN / Unknown Venipuncture / Unknown 06/16/2024 5:37 PM CONSTRUCTION AND MAINTENANCE INSPECTOR 06/16/2024 5:46 PM CONSTRUCTION AND MAINTENANCE INSPECTOR us Varghese Episcopalian Schofield MD LAB - BLOOD ORDERABLE S Final Result U LABORATORY [facility] [place] [facility] [address] [facility], [address] [place] [phone] [place] [address] * Blood Culture Peripheral Blood (06/16/2024 5:37 PM CONSTRUCTION AND MAINTENANCE INSPECTOR) Only the most recent of3 resultswithin the time period is included. Culture No Growth 06/21/2024 6:47 PM CONSTRUCTION AND MAINTENANCE INSPECTOR [facility] Blood BLOOD SPECIMEN / Unknown Venipuncture / Unknown 06/16/2024 5:37 PM CONSTRUCTION AND MAINTENANCE INSPECTOR 06/16/2024 5:47 PM CONSTRUCTION AND MAINTENANCE INSPECTOR us Varghesegiulia Schofield MD LAB - MICRO GENERAL O RDERABLES Final Result Performing Organization Address [facility] Co de Phone Number U IDD LABORATORY [facility] Inf. Diseases Diag. Lab [address] [facility], [address] [place] [phone] [place] [address] * EKG 12 lead (06/16/2024 4:55 PM CONSTRUCTION AND MAINTENANCE INSPECTOR) Only the most recent of2 resultswithin the time period is included. Systolic Blood Pressure mmHg RADIOLOGY RESULTS Diastolic Blood Pressure mmHg RADIOLOGY RESULTS Ventricular Rate 122 BPM RAD IOLOGY RESULTS Atrial Rate 122 BPM RADIOLOG Y RESULTS VA Interval 128 ms RADIOLOG Y RESULTS QRS Duration 74 ms RADIOLO GY RESULTS QT 314 ms RADIOLOGY RESULTS QTc 447 ms RADIOLOGY RESULTS P [place] 63 degrees RADIOLOGY RESULTS R AXIS 83 degrees RADIOLOGY RESULTS T [place] 29 degrees RADIOLOGY RESULTS Interpretation ECG Sinus tachycardia Otherwise normal ECG Unconfirmed report - interpretation of this ECG is computer generated - see medical record for final interpretation Confirmed by - EMERGENCY ROOM, PHYSICIAN ([id number]), clinical editor KARLA WILLIAMSON ([id number]) on 06/17/2024 6:56:59 AM RADIOLOGY RESULTS 06/16/2024 4:55 PM CONSTRUCTION AND MAINTENANCE INSPECTOR 06/17/2024 6:56 AM CONSTRUCTION AND MAINTENANCE INSPECTOR us Abimael Schofield MD ECG ORDERABLES Edite d Result - Final RADIOLOGY RESULTS * XR Chest Port 1 View (06/14/2024 8:46 AM CONSTRUCTION AND MAINTENANCE INSPECTOR) Anatomical Region Laterality Modality Chest Digital Radiogra phy Impressions 06/14/2024 8:59 AM CONSTRUCTION AND MAINTENANCE INSPECTOR Impression: Further increase in ill-defined opacity projecting over the right lower lung concerning for pneumonia. MARIO ALBERTO BLACKWOOD MD Narrative 06/14/2024 8:59 AM CONSTRUCTION AND MAINTENANCE INSPECTOR Exam: XR CHEST PORT 1 VIEW, 06/14/2024 [...] for pneumonia. MARIO ALBERTO BLACKWOOD MD Polly Marly Allen MD IMG DIAGNOSTIC IM AGING ORDERABLES Final Result * Respiratory Panel PCR (06/12/2024 9:34 PM CONSTRUCTION AND MAINTENANCE INSPECTOR) Adenovirus Not Detected Not Detected 06/12/2024 11:53 PM CONSTRUCTION AND MAINTENANCE INSPECTOR [facility] Coronavirus Not Detected Not Detected 06/12/2024 11:53 PM CONSTRUCTION AND MAINTENANCE INSPECTOR [facility] Comment:This test detects Co ronavirus 229E, HKU1, NL63 and OC43 but does not distinguish between them. It does not detect MERS ( Respiratory Syndrome), SARS (Severe Acute Respiratory Syndrome) or 2019-nCoV (Novel 2019) Coronavirus. Human Metapneumovirus Not Detected Not Detected 06/12/2024 11:53 PM CONSTRUCTION AND MAINTENANCE INSPECTOR [facility] Human Rhin/Enterovirus Not Detected Not Detected 06/12/2024 11:53 PM CONSTRUCTION AND MAINTENANCE INSPECTOR [facility] Influenza A Not Detected Not Detected 06/12/2024 11:53 PM CONSTRUCTION AND MAINTENANCE INSPECTOR [facility] Influenza A, H1 Not Detected Not Detected 06/12/2024 11:53 PM CONSTRUCTION AND MAINTENANCE INSPECTOR [facility] Influenza A 2009 H1N1 Not Detected Not Detected 06/12/2024 11:53 PM CONSTRUCTION AND MAINTENANCE INSPECTOR [facility] Influenza A, H3 Not Detected Not Detected 06/12/2024 11:53 PM CONSTRUCTION AND MAINTENANCE INSPECTOR [facility] Influenza B Not Detected Not Detected 06/12/2024 11:53 PM CONSTRUCTION AND MAINTENANCE INSPECTOR [facility] Parainfluenza Virus 1 Not Detected Not Detected 06/12/2024 11:53 PM CONSTRUCTION AND MAINTENANCE INSPECTOR [facility] Parainfluenza Virus 2 Not Detected Not Detected 06/12/2024 11:53 PM CONSTRUCTION AND MAINTENANCE INSPECTOR [facility] Parainfluenza Virus 3 Not Detected Not Detected 06/12/2024 11:53 PM CONSTRUCTION AND MAINTENANCE INSPECTOR [facility] Parainfluenza Virus 4 Not Detected Not Detected 06/12/2024 11:53 PM CONSTRUCTION AND MAINTENANCE INSPECTOR [facility] Respiratory Syncytial Virus A Not Detected Not Detected 06/12/2024 11:53 PM CONSTRUCTION AND MAINTENANCE INSPECTOR [facility] Respiratory Syncytial Virus B Not Detected Not Detected 06/12/2024 11:53 PM CONSTRUCTION AND MAINTENANCE INSPECTOR [facility] Chlamydia Pneumoniae Not Detected Not Detected 06/12/2024 11:53 PM CONSTRUCTION AND MAINTENANCE INSPECTOR [facility] Mycoplasma Pneumoniae Not Detected Not Detected 06/12/2024 11:53 PM CONSTRUCTION AND MAINTENANCE INSPECTOR [facility] Swab NASOPHARYNGEAL STRUCTURE / Unknown Non-blood Collection / Unknown 06/12/2024 9:34 PM CONSTRUCTION AND MAINTENANCE INSPECTOR 06/12/2024 9:47 PM CONSTRUCTION AND MAINTENANCE INSPECTOR Narrative [facility] - 06/12/2024 11:53 PM CONSTRUCTION AND MAINTENANCE INSPECTOR The ePlex Respiratory Panel is a qualitative nucleic acid, multiplex, in vitro diagnostic test for the simultaneous detection and identification of multiple respiratory viral and bacterial nucleic acids in nasopharyngeal swabs collected in viral transport media from individual exhibiting signs and symptoms of respiratory infection. The assay has received FDA approval for the testing of nasopharyngeal (HRIS ANALYST) swabs only. This test is used for clinical purposes and should not be regarded as investigational or for research. This laboratory is certified under the Clinical Laboratory Improvement Amendments of 1988 (CLIA-88) as qualified to perform high complexity clinical laboratory testing. us Abdelrahman Goddard MD LAB - MICRO GENERAL ORDERABLES Final Result [facility]AT[facility] Inf. Diseases Diag. Lab [address] [facility], [address] [place] [address] * (ABNORMAL) Blood gas venous (06/12/2024 7:17 PM CONSTRUCTION AND MAINTENANCE INSPECTOR) pH Venous 7.38 7.32 - 7.43 06/12/2024 7:40 PM CONSTRUCTION AND MAINTENANCE INSPECTOR [facility] pCO2 Venous 42 40 - 50 mm Hg 06/12/2024 7:40 PM CONSTRUCTION AND MAINTENANCE INSPECTOR [facility] pO2 Venous 35 25 - 47 mm Hg 06/12/2024 7:40 PM CONSTRUCTION AND MAINTENANCE INSPECTOR [facility] Bicarbonate Venous 24 21 - 28 mmol/L 06/12/2024 7:40 PM CONSTRUCTION AND MAINTENANCE INSPECTOR [facility] Base Excess/Deficit Venous -0.9 -3.0 - 3.0 mmol/L 06/12/2024 7:40 PM CONSTRUCTION AND MAINTENANCE INSPECTOR [facility] FIO2 21 JARET 06/12/2024 7:40 PM CONSTRUCTION AND MAINTENANCE INSPECTOR [facility] Oxyhemoglobin Venous 61(L) 70 - 75 % 06/12/2024 7:40 PM [employer]TENA[employer]CE INSPECTOR [facility] O2 Sat, Venous 63.9(L) 70.0 - 75.0 % 06/12/2024 7:40 PM [employer]INTENA[employer]CE INSPECTOR [facility] Blood, venous VENOUS LINE / Unknown Venipuncture / Unknown 06/12/2024 7:17 PM [employer]INTENANCE INSPECTOR 06/12/2024 7:30 PM [employer]INTENANCE INSPECTOR Narrative [facility] - 06/12/2024 7:40 PM [employer]INTENANCE INSPECTOR In healthy individuals, oxyhemoglobin (O2Hb) and oxygen saturation (SO2) are approximately equal. In the presence of dyshemoglobins, oxyhemoglobin can be considerably lower than oxygen saturation. Abdelrahman Goddard MD LAB - BLOOD ORDERABLES Final R esult [facility] [place] [facility] [address] [facility] [address], [address] [place] [address] * ECG 12-LEAD WITH MUSE (LHE) (06/11/2024 9:04 PM CONSTRUCTION AND MAINTENANCE INSPECTOR) Only the most recent of14 resultswithin the time period is included. Systolic Blood Pressure mmHg RADIOLOGY RESULTS Diastolic Blood Pressure mmHg RADIOLOGY RESULTS Ventricular Rate 102 BPM RAD IOLOGY RESULTS Atrial Rate 102 BPM RADIOLOG Y RESULTS VA Interval 158 ms RADIOLOG Y RESULTS QRS Duration 78 ms RADIOLO GY RESULTS QT 348 ms RADIOLOGY RESULTS QTc 453 ms RADIOLOGY RESULTS P [place] 39 degrees RADIOLOGY RESULTS R AXIS 66 degrees RADIOLOGY RESULTS T [place] 33 degrees RADIOLOGY RESULTS Interpretation ECG Sinus tachycardia Nonspecific T wave abnormality Abnormal ECG When compared with ECG of 05-Jun-2024 11:40, No significant change was found Confirmed by SEE ED PROVIDER NOTE FOR, ECG INTERPRETATION (4000), clinical editor SELMA GARRISON ([id number]) on 06/11/2024 9:05:27 PM RADIOLOGY RESULTS 06/11/2024 9:04 PM CONSTRUCTION AND MAINTENANCE INSPECTOR 06/11/2024 9:05 PM CONSTRUCTION AND MAINTENANCE INSPECTOR us Deshawn Arredondo MD ECG ORDERABLES Edited Resu lt - Final RADIOLOGY RESULTS * Influenza A/B, RSV and SARS-CoV2 PCR (COVID-19) Nasopharyngeal (06/07/2024 1:15 PM CONSTRUCTION AND MAINTENANCE INSPECTOR) Only the most recent of3 resultswithin the time period is included. Influenza A PCR Negative Negative 06/07/2024 3:32 PM CONSTRUCTION AND MAINTENANCE INSPECTOR [facility] Influenza B PCR Negative Negative 06/07/2024 3:32 PM CONSTRUCTION AND MAINTENANCE INSPECTOR [facility] RSV PCR Negative Negative 06/07/2024 3:32 PM CONSTRUCTION AND MAINTENANCE INSPECTOR [facility] SARS CoV2 PCR Negative Negative 06/07/2024 3:32 PM CONSTRUCTION AND MAINTENANCE INSPECTOR [facility] Comment:NEGATIVE: SARS-CoV-2 (COVID-19) RNA not detected, presumed negative. Swab NASOPHARYNGEAL STRUCTURE / Unknown Non-blood Collection / Unknown 06/07/2024 1:15 PM CONSTRUCTION AND MAINTENANCE INSPECTOR 06/07/2024 1:36 PM CONSTRUCTION AND MAINTENANCE INSPECTOR Narrative [facility] - 06/07/2024 3:32 PM CONSTRUCTION AND MAINTENANCE INSPECTOR Testing was performed using the Xpert Xpress CoV2/Flu/RSV Assay on the Quid GeneXpert Instrument. This test should be ordered [...] management. This test was validated by the [facility]. These laboratories are certified under the Clinical Laboratory Improvement Amendments of 1988 (CLIA-88) as qualified to perfom high complexity laboratory testing. us Case Samuel MD LAB - MICRO GENERAL ORDER SYD Final Result [facility] Inf. Diseases Diag. Lab [address] [facility], [address] [place] [phone] * HGB Eval Reflex to ELP or RBC Solubility (05/29/2024 11:23 AM CONSTRUCTION AND MAINTENANCE INSPECTOR) Alpha Globin (HBA1 and HBA2) DD Bill Billed 05/31/2024 2:46 PM CONSTRUCTION AND MAINTENANCE INSPECTOR [facility] Comment: Performed By: [facility] [address] [place] [address] Sign Builder Supervisor: Devon Healy MD, PhD CLIA Number: [id number] Blood VENOUS LINE / Unknown IVAD (Port) / Unknown 05/29/2024 11:23 AM CONSTRUCTION AND MAINTENANCE INSPECTOR 05/29/2024 11:30 AM CONSTRUCTION AND MAINTENANCE INSPECTOR us Case Samuel MD LAB CHARGE PERFORMABLES F inal Result [facility] [address] [place] [address], [place] [phone] * Bill Only- Sickle Solubility Bill (05/29/2024 11:23 AM CONSTRUCTION AND MAINTENANCE INSPECTOR) [facility] Sickle Solubility Reflex Bill Billed 05/31/2024 2:46 PM CONSTRUCTION AND MAINTENANCE INSPECTOR [facility] Comment: Performed By: [facility] [address] [place] [address] Sign Builder Supervisor: Devon Healy MD, PhD CLIA Number: [id number] Blood VENOUS LINE / Unknown IVAD (Port) / Unknown 05/29/2024 11:23 AM CONSTRUCTION AND MAINTENANCE INSPECTOR 05/29/2024 11:30 AM CONSTRUCTION AND MAINTENANCE INSPECTOR us Case Samuel MD LAB CHARGE PERFORMABLES F inal Result Performing Organization Address [facility] Co de Phone Number [facility] [address] [place] [phone], [place] [phone] * Genotype Red Blood Cell (05/29/2024 11:23 AM CONSTRUCTION AND MAINTENANCE INSPECTOR) [facility] See Scanned Result GENOTYPE RED BLOOD CELL-Scanned 05/31/2024 10:16 AM CONSTRUCTION AND MAINTENANCE INSPECTOR [facility][NOTE 2] Blood VENOUS LINE / Unknown IVAD (Port) / Unknown 05/29/2024 11:23 AM CONSTRUCTION AND MAINTENANCE INSPECTOR 05/29/2024 11:29 AM CONSTRUCTION AND MAINTENANCE INSPECTOR us Case Samuel MD LAB - BLOOD ORDERABLES Fi nal Result Performing Organization Address [facility]/[place] [address], [place] [phone] * (ABNORMAL) HGB Eval Reflex to ELP or RBC Solubility (05/29/2024 11:23 AM CONSTRUCTION AND MAINTENANCE INSPECTOR) [facility] Hemoglobin A 15.0(L) 95.0 - 97.9 % 05/31/2024 2:46 PM CONSTRUCTION AND MAINTENANCE INSPECTOR [facility] Hemoglobin A2 3.0 2.0 - 3.5 % 05/31/2024 2:46 PM CONSTRUCTION AND MAINTENANCE INSPECTOR [facility] Hemoglobin F 10.8(H) 0.0 - 2.1 % 05/31/2024 2:46 PM CONSTRUCTION AND MAINTENANCE INSPECTOR [facility] Hemoglobin S 71.2(H) 0.0 - 0.0 % 05/31/2024 2:46 PM CONSTRUCTION AND MAINTENANCE INSPECTOR [facility] Hemoglobin C 0.0 0.0 - 0.0 % 05/31/2024 2:46 PM CONSTRUCTION AND MAINTENANCE INSPECTOR [facility] Hemoglobin E 0.0 0.0 - 0.0 % 05/31/2024 2:46 PM CONSTRUCTION AND MAINTENANCE INSPECTOR [facility] Hemoglobin - Other 0.0 0.0 - 0.0 % 05/31/2024 2:46 PM CONSTRUCTION AND MAINTENANCE INSPECTOR [facility] Hemoglobin Evaluation See Note 05/31/2024 2:46 PM CONSTRUCTION AND MAINTENANCE INSPECTOR [facility] Comment: Impression: Hb S present [...] Globin (HBA1 and HBA2) Deletion/Duplication ([facility] test #1451869) should be considered. Hb S/beta-plus thalassemia is typically characterized by more Hb S than Hb A with the presence of microcytosis. If microcytosis is present and Hb S/beta-plus thalassemia is suspected, Beta Globin (HBB) Sequencing ([facility] test #5499109) is suggested. Hemoglobin analysis should be offered [...] developed and its performance characteristics determined by [facility]. It has not been cleared or approved by the U.S. Food and Drug Administration. This test was performed in a CLIA-certified laboratory and is intended for clinical purposes. Sickle Cell Solubility Reflex Positive(A) 05/31/2024 2:46 PM CONSTRUCTION AND MAINTENANCE INSPECTOR [facility] Comment: INTERPRETIVE INFORMATION: Sickle Cell Solubility Reflex Not Performed: Solubility testing for Hemoglobin S not indicated. 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 Additional charges apply. Conf Previous: Positive for Hemoglobin S by HPLC. Solubility testing performed previously and not repeated with this submission. Hgb Capillary Electrophoresis Reflex Performed 05/31/2024 2:46 PM CONSTRUCTION AND MAINTENANCE INSPECTOR [employer] Comment: INTERPRETIVE INFORMATION: Hgb Capillary Electrophoresis Reflex Not Performed: Confirmation by Capillary Electrophoresis not indicated. Performed: Results confirmed by Capillary Electrophoresis. Additional charges apply. Conf Previous: Capillary Electrophoresis confirmation performed as part of a previous submission. Confirmation not repeated with this submission. Performed By: [facility] [address] [place] [address] Sign Builder Supervisor: Devon Healy MD, PhD CLIA Number: [id number] Blood VENOUS LINE / Unknown IVAD (Port) / Unknown 05/29/2024 11:23 AM CONSTRUCTION AND MAINTENANCE INSPECTOR 05/29/2024 11:30 AM CONSTRUCTION AND MAINTENANCE INSPECTOR Case Samuel MD LAB - BLOOD ORDERABLES Fi nal Result Performing Organization Address [facility]/ZIP Co de Phone Number [facility] [address] [place] [address] [phone] * (ABNORMAL) Ferritin (05/29/2024 11:23 AM CONSTRUCTION AND MAINTENANCE INSPECTOR) [facility] Ferritin 1,559(H) 6 - 175 ng/mL 05/29/2024 12:43 PM CONSTRUCTION AND MAINTENANCE INSPECTOR [facility]ATORY - CORE LAB Blood VENOUS LINE / Unknown IVAD (Port) / Unknown 05/29/2024 11:23 AM CONSTRUCTION AND MAINTENANCE INSPECTOR 05/29/2024 11:29 AM CONSTRUCTION AND MAINTENANCE INSPECTOR Case Samuel MD LAB - BLOOD ORDERABLES Fi nal Result [facility] - CORE LAB [facility] [place] [address] [facility] 1st [place] [address] * Urine Culture (05/29/2024 11:23 AM CONSTRUCTION AND MAINTENANCE INSPECTOR) Culture <10,000 CFU/mL Mixture of Urogenital Vickie 05/30/2024 9:45 AM CONSTRUCTION AND MAINTENANCE INSPECTOR [facility] Urine URINE SPECIMEN OBTAINED BY CLEAN CATCH PROCEDURE / Unknown Non-blood Collection / Unknown 05/29/2024 11:23 AM CONSTRUCTION AND MAINTENANCE INSPECTOR 05/29/2024 11:41 AM CONSTRUCTION AND MAINTENANCE INSPECTOR us Case Samuel MD LAB - MICRO GENERAL ORDER SYD Final Result [facility] Inf. Diseases Diag. Lab [address] [facility], [address] [place] [address], [place] * (ABNORMAL) Manual Differential (05/29/2024 12:53 AM CONSTRUCTION AND MAINTENANCE INSPECTOR) Only the most recent of7 resultswithin the time period is included. % Neutrophils 54 % JARET 05/29/2024 1:58 AM [facility] % Lymphocytes 34 % JARET 05/29/2024 1:58 AM [facility] % Monocytes 10 % JARET 05/29/2024 1:58 AM [facility] % Eosinophils 1 % JARET 05/29/2024 1:58 AM [facility] % Basophils 1 % JARET 05/29/2024 1:58 AM [facility] Absolute Neutrophils 8.4(H) 1.6 - 8.3 10e3/uL JARET 05/29/2024 1:58 AM [facility] Absolute Lymphocytes 5.3 0.8 - 5.3 10e3/uL JARET 05/29/2024 1:58 AM [facility] Absolute Monocytes 1.6(H) 0.0 - 1.3 10e3/uL JARET 05/29/2024 1:58 AM [facility] Absolute Eosinophils 0.2 0.0 - 0.7 10e3/uL JARET 05/29/2024 1:58 AM [facility] Absolute Basophils 0.2 0.0 - 0.2 10e3/uL JARET 05/29/2024 1:58 AM CONSTRUCTION AND MAINTENANCE INSPECTOR [facility] NRBCs per 100 WBC 3 % [facility] 05/29/2024 1:58 AM CONSTRUCTION AND MAINTENANCE INSPECTOR [facility] Absolute NRBCs 0.5 10e3/uL [facility] 05/29/2024 1:58 AM [facility] RBC Morphology Confirmed RBC Indices [facility] 05/29/2024 1:58 AM [facility] Platelet Assessment Automated Count Confirmed. Platelet morphology is normal. Automated Count Confirmed. Platelet morphology is normal. [facility] 05/29/2024 1:58 AM CONSTRUCTION AND MAINTENANCE INSPECTOR [facility] Polychromasia Moderate(A) None Seen [facility] 05/29/2024 1:58 AM CONSTRUCTION AND MAINTENANCE INSPECTOR [facility] Sickle Cells Moderate(A) None Seen [facility] 05/29/2024 1:58 AM [facility] Blood VENOUS LINE / Unknown Venipuncture / Unknown 05/29/2024 12:53 AM CONSTRUCTION AND MAINTENANCE INSPECTOR 05/29/2024 12:58 AM CONSTRUCTION AND MAINTENANCE INSPECTOR Lenin Smith MD LAB - BLOOD ORDERABLES Final Result Performing Organization Address City/State/[facility] Co de Phone Number [facility] LABORATORY [facility] Lab [address] [facility] [address] * IR Procedure Note (05/25/2024 2:54 PM CONSTRUCTION AND MAINTENANCE INSPECTOR) Narrative Myron Michel MD - 05/25/2024 2:54 PM CONSTRUCTION AND MAINTENANCE INSPECTOR Myron Michel MD 05/25/2024 2:55 PM [facility] Procedure: IR Procedure Note Date/Time: 05/25/2024 2:54 [...] the procedure a time out was called Independence Protocol: the Joint Commission Independence Protocol was followed Preparation: Patient was prepped and draped in usual sterile fashion ANESTHESIA Anesthesia: Local infiltration Local Anesthetic: Lidocaine 1% without epinephrine SEDATION Patient Sedated: Yes Sedation Type: Moderate (conscious) sedation Sedation: Fentanyl and midazolam Vital signs: Vital signs monitored during sedation See dictated procedure note for full details. Findings: Successful bilateral port placement apheresis on the right, 6 mauritian smart port on the left Specimens: none Procedural Complications: None Condition: Stable Plan: 1 hour bedrest then okay to discharge PROCEDURE Describe Procedure: Successful bilateral port placement apheresis on the right, 6 mauritian smart port on the left Patient Tolerance: Patient tolerated the procedure well with no immediate complications Length of time physician/provider present for 1:1 monitoring during sedation: 83-97 min us Myron Michel MD PROCEDURE/MINOR SURGICAL ORDERA BLES Final Result * IR Chest Port Placement > 5 Yrs of Age (05/25/2024 2:47 PM CONSTRUCTION AND MAINTENANCE INSPECTOR) Only the most recent of2 resultswithin the time period is included. Anatomical Region Laterality Modality Chest Radio Fluoroscop y Impressions 05/25/2024 5:26 PM CONSTRUCTION AND MAINTENANCE INSPECTOR IMPRESSION: Insertion of right-sided apheresis chest [...] mg Versed Sedation time: 97 minutes ATTENDING [id number] SEDATION TIME: less than 5 minutes. Access [...] placed: BD PowerFlow apheresis port Catheter size (Palestinian): 9.6 Lumens: Single-lumen Power injectable: Yes Catheter [...] JASWINDER COOPER MD Narrative 05/25/2024 5:26 PM CONSTRUCTION AND MAINTENANCE INSPECTOR PROCEDURE: Venous port placement Procedural Personnel Attending physician(s): Jaswinder Cooper Fellow physician(s): Myron Michel Resident physician(s): None Advanced practice provider(s): JASWINDER Shahid MD, attest that I was present for all critical portions of the procedure and was immediately available to provide guidance and assistance during the remainder of the procedure. Procedure Date (yyy): 05/25/2024 Pre-procedure diagnosis: Sickle cell Post-procedure diagnosis: [...] mg Versed Sedation time: 97 minutes ATTENDING [id number] SEDATION TIME: less than 5 minutes. Access [...] placed: BD PowerFlow apheresis port Catheter size (Palestinian): 9.6 Lumens: Single-lumen Power injectable: Yes Catheter [...] JASWINDER COOPER MD us Case Samuel MD G IR ORDERABLES Final R esult * HCG qualitative urine (05/25/2024 12:03 PM CONSTRUCTION AND MAINTENANCE INSPECTOR) Only the most recent of2 resultswithin the time period is included. hCG Urine Qualitative Negative Negative JARET 05/25/2024 12:34 PM CONSTRUCTION AND MAINTENANCE INSPECTOR [facility] Comment:This test is for scr eening purposes. Results should be interpreted along with the clinical picture. Confirmation testing is available if warranted by ordering [id number], HCG Quantitative . Urine MID-STREAM URINE SPECIMEN / Unknown Non-blood Collection / Unknown 05/25/2024 12:03 PM CONSTRUCTION AND MAINTENANCE INSPECTOR 05/25/2024 12:19 PM CONSTRUCTION AND MAINTENANCE INSPECTOR us Jaswinder Cooper MD LAB - URINE ORDERABLES Liss plaza Result LAB[facility]ATORY [facility] [address] [facility], [address] [phone] * CT Chest Pulmonary Embolism w Contrast (05/23/2024 9:33 PM CONSTRUCTION AND MAINTENANCE INSPECTOR) Only the most recent of2 resultswithin the time period is included. Anatomical Region Laterality Modality Chest, SUBRAD CT BODY, [facility] CT CHEST Computed Tomography 05/23/2024 9:33 PM CONSTRUCTION AND MAINTENANCE INSPECTOR Impressions 05/23/2024 10:12 PM CONSTRUCTION AND MAINTENANCE INSPECTOR IMPRESSION: 1. Bilateral pulmonary nodules stable since [...] as noted above. Narrative 05/23/2024 10:12 PM CONSTRUCTION AND MAINTENANCE INSPECTOR EXAM: CT CHEST PULMONARY EMBOLISM W CONTRAST LOCATION: [facility] DATE: 05/23/2024 INDICATION: patient with sickle cell. acute chest pain similar to pe in the past. COMPARISON: Chest x-ray 05/22/2024, CTA chest 05/04/2024 and 03/15/2024. Report of CT chest from [facility] from 03/13/2023 is also available. TECHNIQUE: CT [...] 05/04/2024 and 03/15/2024.Report of CT chest from [facility] from 03/13/2023 is alsoavailable. TECHNIQUE: CT [...] terminal pro BNP outpatient (05/23/2024 9:02 PM CONSTRUCTION AND MAINTENANCE INSPECTOR) [facility] N Terminal Pro BNP Outpatient 74 0 - 450 pg/mL 05/23/2024 9:39 PM CONSTRUCTION AND MAINTENANCE INSPECTOR [facility] Comment: Reference range shown [...] Unknown Venipuncture / Unknown 05/23/2024 9:02 PM CONSTRUCTION AND MAINTENANCE INSPECTOR 05/23/2024 9:10 PM CONSTRUCTION AND MAINTENANCE INSPECTOR Marilia Summers MD LAB - BLOOD ORDERABLES Final Result [facility] LABORATORY [facility] Lab [address] [place] [address] * Extra Green Top ([place] Heparin) Tube (05/20/2024 9:09 AM CONSTRUCTION AND MAINTENANCE INSPECTOR) Hold Specimen C 05/20/2024 10:16 AM [facility] Blood VENOUS LINE / Unknown Venipuncture / Unknown 05/20/2024 9:09 AM CONSTRUCTION AND MAINTENANCE INSPECTOR 05/20/2024 9:14 AM CONSTRUCTION AND MAINTENANCE INSPECTOR us Deshawn Arredondo MD LAB - BLOOD ORDERABLES Liss l Result Performing Organization Address [facility] de Phone Number [facility] [address] [place] [address] * (ABNORMAL) Hepatic function panel (05/19/2024 3:05 AM CONSTRUCTION AND MAINTENANCE INSPECTOR) Only the most recent of4 resultswithin the time period is included. [facility] Protein Total 7.9 6.4 - 8.3 g/dL 05/19/2024 3:37 AM [facility] Albumin 4.3 3.5 - 5.2 g/dL 05/19/2024 3:37 AM [facility] Bilirubin Total 2.6(H) <=1.2 mg/dL 05/19/2024 3:37 AM [facility] Alkaline Phosphatase 128 40 - 150 U/L 05/19/2024 3:37 AM [facility] AST 67(H) 0 - 45 U/L 05/19/2024 3:37 AM [facility] ALT 39 0 - 50 U/L 05/19/2024 3:37 AM [facility] Bilirubin Direct 0.65(H) 0.00 - 0.30 mg/dL 05/19/2024 3:37 AM [facility] Blood VENOUS LINE / Unknown Venipuncture / Unknown 05/19/2024 3:05 AM CONSTRUCTION AND MAINTENANCE INSPECTOR 05/19/2024 3:18 AM CONSTRUCTION AND MAINTENANCE INSPECTOR us Marilia Summers MD LAB - BLOOD ORDERABLES Final Result Performing Organization Address [facility] Co de Phone Number [facility] [address] [place] [address] Dr. [place] [address], [place] * (ABNORMAL) CK total (05/19/2024 3:05 AM CONSTRUCTION AND MAINTENANCE INSPECTOR) CK 240(H) 26 - 192 U/L 05/19/2024 3:37 AM CONSTRUCTION AND MAINTENANCE INSPECTOR [facility] Blood VENOUS LINE / Unknown Venipuncture / Unknown 05/19/2024 3:05 AM CONSTRUCTION AND MAINTENANCE INSPECTOR 05/19/2024 3:18 AM CONSTRUCTION AND MAINTENANCE INSPECTOR Marilia Summers MD LAB - BLOOD ORDERABLES Final Result Performing Organization Address [facility] Co de Phone Number [address] [place] [address], [place] * Extra Purple Top Tube (05/13/2024 6:17 PM CONSTRUCTION AND MAINTENANCE INSPECTOR) Hold Specimen JIC 05/13/2024 7:31 PM CONSTRUCTION AND MAINTENANCE INSPECTOR [facility] Blood STRUCTURE OF RIGHT UPPER LIMB / Unknown Venipuncture / Unknown 05/13/2024 6:17 PM CONSTRUCTION AND MAINTENANCE INSPECTOR 05/13/2024 6:23 PM CONSTRUCTION AND MAINTENANCE INSPECTOR us Shaheen Unger MD LAB - BLOOD ORDERABLES Final Res ult Performing Organization Address [facility] Co de Phone Number [facility] [address] [place] [address] Dr. [place] [address], [place] * (ABNORMAL) Vitamin D deficiency screening (04/28/2024 1:50 AM CONSTRUCTION AND MAINTENANCE INSPECTOR) Vitamin D, Total (25-Hydroxy) 8(L) 20 - 50 ng/mL 05/01/2024 6:42 PM CONSTRUCTION AND MAINTENANCE INSPECTOR [facility] Comment:severe deficiency Blood BLOOD SPECIMEN / Unknown Venipuncture / Unknown 04/28/2024 1:50 AM CONSTRUCTION AND MAINTENANCE INSPECTOR 04/28/2024 1:53 AM CONSTRUCTION AND MAINTENANCE INSPECTOR Narrative [facility] - 05/01/2024 6:42 PM CONSTRUCTION AND MAINTENANCE INSPECTOR Season, race, dietary intake, and treatment affect the concentration of 14-xvyblkm-Rgwmsrx D. Values may decrease during winter months and increase during summer months. Vitamin D determination is routinely performed by an immunoassay specific for 25 hydroxyvitamin D3. If an individual is on vitamin D2(ergocalciferol) supplementation, please specify 25 [place] vitamin D2 and D3 level determination by LCMSMS test VITD23. us Case Samuel MD LAB - BLOOD ORDERABLES Fi nal Result LABORATORY [facility] [address] [facility] [address] [facility], [address] [place] [address] * CT Pelvis Bone wo Contrast (04/19/2024 3:22 AM CONSTRUCTION AND MAINTENANCE INSPECTOR) Anatomical Region Laterality Modality Abdomen/Pelvis, SUBRAD CT MS K, P CT ABDOMEN PELVIS, SUBRAD CT BODY, RAD CT Computed Tomography 04/19/2024 3:22 AM CONSTRUCTION AND MAINTENANCE INSPECTOR Impressions 04/19/2024 4:06 AM CONSTRUCTION AND MAINTENANCE INSPECTOR IMPRESSION: 1. Sclerosis involving the left femoral [...] right femoral head. Narrative 04/19/2024 4:06 AM CONSTRUCTION AND MAINTENANCE INSPECTOR EXAM: CT PELVIS BONE WO CONTRAST LOCATION: [facility] DATE: 04/19/2024 INDICATION: Eval L [...] EXAM: CT PELVIS BONE WO CONTRAST LOCATION: [facility] DATE: 04/19/2024 INDICATION: Eval L [...] Extra Red Top Tube (04/08/2024 10:22 PM CONSTRUCTION AND MAINTENANCE INSPECTOR) Hold Specimen [facility] 04/08/2024 11:31 PM CONSTRUCTION AND MAINTENANCE INSPECTOR [facility] Blood STRUCTURE OF LEFT UPPER LIMB / Unknown Venipuncture / Unknown 04/08/2024 10:22 PM CONSTRUCTION AND MAINTENANCE INSPECTOR 04/08/2024 10:30 PM CONSTRUCTION AND MAINTENANCE INSPECTOR Deshawn Arredondo MD LAB - BLOOD ORDERABLES Liss l Result [facility] [address] [place], [place] [address] * Extra Blue Top Tube (04/08/2024 10:22 PM CONSTRUCTION AND MAINTENANCE INSPECTOR) Hold Specimen [facility] 04/08/2024 11:31 PM CONSTRUCTION AND MAINTENANCE INSPECTOR [facility] Blood STRUCTURE OF LEFT UPPER LIMB / Unknown Venipuncture / Unknown 04/08/2024 10:22 PM CONSTRUCTION AND MAINTENANCE INSPECTOR 04/08/2024 10:30 PM CONSTRUCTION AND MAINTENANCE INSPECTOR Deshawn Arredondo MD LAB - BLOOD ORDERABLES Liss l Result Performing Organization Address City/[facility]/ZIP Co de Phone Number [facility] [address] [place], [place] [address] * (ABNORMAL) D dimer quantitative (04/06/2024 12:45 AM CONSTRUCTION AND MAINTENANCE INSPECTOR) D-Dimer Quantitative 1.25(H) 0.00 - 0.50 ug/mL FEU 04/06/2024 1:06 AM CONSTRUCTION AND MAINTENANCE INSPECTOR [facility] Blood BLOOD SPECIMEN / Unknown Venipuncture / Unknown 04/06/2024 12:45 AM CONSTRUCTION AND MAINTENANCE INSPECTOR 04/06/2024 12:52 AM CONSTRUCTION AND MAINTENANCE INSPECTOR Narrative [facility] - 04/06/2024 1:06 AM CONSTRUCTION AND MAINTENANCE INSPECTOR This D-dimer assay is intended for use in conjunction with a clinical pretest probability assessment model to exclude pulmonary embolism (PE) and deep venous thrombosis (DVT) in outpatients suspected of PE or DVT. The cut-off value is 0.50 ug/mL FEU. Guille Alex Davis DO LAB - BLOOD ORDERABLES Fin al Result [facility] [address] [place] [address], [place] from Last 3 Months [place] [address] [place] Advance Directives For more information, please contact: [phone] * Full Code (Latest Code Status on [...] patie nt/ legal decision maker Care Teams Supervisor Force Adjustment Relationship Specialty Start Date End Date Veronica Joseph MD [address] [place] [address] PCP - General Family Medicine 06/18/24 Mor Ramsey Medical Student 04/03/24 Case Samuel MD [address] [place] [address], [address] [place] [address] Assigned Pediatric Specialist Provider 05/18/24 Juhi Benson, RN Specialty Tub Puller Hematology & Oncology 05/29/24
--- OUTSIDE RECORDS SUMMARY | 2024-06-25 14:34 | XMS_ITS ---
Author Organization [facility] Address [address] [place] [id number] Care Team Providers Care [employer] Teacher Name Role Phone Roxy Mor Unavailable Unavailable Case Samuel MD Unavailable [phone] Juhi Benson RN Unavailable Unavailable Veronica Joseph MD Primary Care Provider [phone] Transitional Care Management Status:Enrolled (Active) Start date:06/16/2024 Enrollment date:06/16/2024 Continued Care and Services Coordination
--- OUTSIDE RECORDS SUMMARY | 2024-06-25 14:34 | XMS_ITS | Encounter Summary ---
Author Organization [place] Address [address] [place] [address]. [place] [address] Care Team Providers Care Safety Scientist Name Role Phone Roxy Mor Unavailable Unavailable Case Samuel MD Unavailable [phone] Juhi Benson RN Unavailable Unavailable Veronica Joseph MD Primary Care Provider [phone] Encounter Details Date Type Department Care Team [...] on file Legal Sex Female 8:25 AM CPHT Gender Identity Not on file Sexual Orientation Not on file documented as of this encounter Plan of Treatment Not on file documented as of this encounter Goals Goal Patient Goal Type Associated Problems Recent Progress Patient-Stated? Author Pain Management General On track( 025 12:40 PM CPHT) Yes Juhi Benson RN Note: Goal Statement: [...] on filedocumented in this encounter Care Teams Safety Scientist Relationship Specialty Start Date End Date Veronica Joseph MD [address] [place] [address] PCP - General Family Medicine 06/18/24 Mor Ramsey Medical Student 04/03/24 Case Samuel MD [address] [place] [address], [address] [place] [address] Assigned Pediatric Specialist Provider 05/18/24 Juhi Benson, RN Specialty Tattoo Designer Hematology & Oncology 05/29/24 documented as of this encounter
--- OUTSIDE RECORDS SUMMARY | 2024-06-25 14:34 | XMS_ITS | Encounter Summary ---
Author Organization [facility] Address [address] [place] [id number] Care Team Providers Care Harp Repairer Name Role Phone [employer] Unavailable Unavailable Case Samuel MD Unavailable [phone] Juhi Benson RN Unavailable Unavailable Veronica Joseph MD Primary Care Provider [phone] Reason for Visit * Reason Comments Sickle Cell Pain Crisis Pt reports pain in her back and b/l lower extremities. Encounter Details Date Type Department Care Team (Late st Contact Info) Description 06/24/2024 9:28 AM COMPUTER SUPPORT SPECIALIST INSTRUCTOR - 06/24/2024 1:05 PM COMPUTER SUPPORT SPECIALIST INSTRUCTOR Emergency [facility] Emergency Department [address] [place] [phone] Richar Mahajan MD [address] [place] [place] [phone] Sickle cell disease with crisis (H) Discharge [...] an overnight nursing home, or couch-surfing.) Yes 06/20/2024 Are you [...] on file Legal Sex Female 8:25 AM COMPUTER SUPPORT SPECIALIST INSTRUCTOR Gender Identity Not on file Sexual Orientation Not on file documented as of this encounter Last Filed Vital Signs Vital Sign Reading Time Taken Comments Blood Pressure 111/67 06/24/2024 11:56 AM COMPUTER SUPPORT SPECIALIST INSTRUCTOR Pulse 101 06/24/2024 12:11 PM COMPUTER SUPPORT SPECIALIST INSTRUCTOR Temperature 36.9 C (98.4 F) 06/24/2024 9:26 AM COMPUTER SUPPORT SPECIALIST INSTRUCTOR Respiratory Rate 16 06/24/2024 9:26 AM COMPUTER SUPPORT SPECIALIST INSTRUCTOR Oxygen Saturation 100% 06/24/2024 12:11 PM COMPUTER SUPPORT SPECIALIST INSTRUCTOR Inhaled Oxygen Concentration - - Weight 52.2 kg (115 lb) 06/24/2024 9:26 AM COMPUTER SUPPORT SPECIALIST INSTRUCTOR Height 154.9 cm (5' 1) 06/24/2024 9:26 AM COMPUTER SUPPORT SPECIALIST INSTRUCTOR Body Mass Index 21.73 06/24/2024 9:26 AM COMPUTER SUPPORT SPECIALIST INSTRUCTOR documented in this encounter Discharge Instructions * Discharge Instructions* Richar Mahajan MD - 06/24/2024 12:57 PM COMPUTER SUPPORT SPECIALIST INSTRUCTOR Home. Continue home care. Follow up with [...] Negative Ketones Urine Negative Negative mg/dL Specific [place] Urine 1.009 1.003 - 1.035 Blood Urine [...] Status --------- ------ CBC with platelets and d...[[id number]] Abnormal Final result Please view results for these tests on the individual orders. UTER SUPPORT SPECIALIST INSTRUCTOR * Attachments The following attachments cannot be sent through Care Everywhere. * Sickle Cell Crisis (Maltese) documented in this encounter Medications at Time [...] 05/01/2024 naloxone (NARCAN) 4 MG/0.1ML nasal spray [place] 1 spray (4 mg) into one nostril [...] extremities. Triage Assessment (Adult) Row Name 06/24/24 0997 Triage Assessment Airway WDL WDL Respiratory WDL Respiratory WDL WDL Skin Circulation/Temperature WDL Skin Circulation/Temperature WDL WDL Cardiac WDL Cardiac WDL WDL Peripheral/Neurovascular WDL Peripheral Neurovascular WDL WDL Cognitive/Neuro/Behavioral WDL Cognitive/Neuro/Behavioral WDL WDL UTER SUPPORT SPECIALIST INSTRUCTOR * Richar Mahajan MD - 06/24/2024 9:16 AM CST Images from the original note were not included. [facility] ([facility]) 06/24/24 ED PROVIDER NOTE History Chief Complaint Patient presents with Sickle Cell Pain Crisis Pt reports pain in her back and b/l lower extremities. The history is provided by the patient and medical records. Gianna Hernández is a 29 year old female with history of sickle cell disease, hemoglobin SS, acute chest syndrome in late 2023, prior PE, stroke, and endocarditis who presents to the emergency department with concerns for sickle cell pain flare. Patient was seen in the emergency department last night with sickle cell pain flare. She was seen by Dr. Dayna Crane who treated her with Dilaudid, IV fluids and she was discharged home. She woke up with sickle cell pain focal in her back area given diffusely throughout. And returns to the ED for pain control. Pulm infection had to get transfused in the last month or so. Patient notes she was in the hospital for acute chest and then came back with a fever and was readmitted also was transfused. Patient was admitted on 12 June and the again. As noted seen by Dr. Varner on 22 June and yesterday by Dr. Crane. Patient [place] dysuric symptoms fevers current at this point no chest pain at all or any acute chest syndrome symptoms no abdominal pain diffuse pain throughout the back and into the legs but no joint swellings or rashes otherwise. Symptoms are typical for her sickle cell also would like some oral Benadryl as that Dilaudid makes her itchy. Patient does have a port which she can access. Acute Pain Crisis Treatment: (note that Toradol [...] H/O Acute Chest Syndrome: Yes Last episode: ICU/intubation: once H/O Stroke: Yes H/O VTE: Yes (PE) H/O Cholecystectomy or Splenectomy: No H/O Asthma, Pulm HTN, AVN, Leg Ulcers, Nephropathy, Retinopathy, etc: AVN (left hip), retinopathy (right) Past Medical History Past Medical History: Diagnosis [...] OF AGE 105/25/2025 TONSILLECTOMY & ADENOIDECTOMY Bilateral diphenhydrAMINE (BENADRYL) 25 MG tablet EPINEPHrine (ANY [...] all other systems negative. Physical Exam BP: 112/69 Pulse: 99 Temp: 98.4 ??F (36.9 ??C) Resp: 16 Height: 154.9 cm (5' 1) Weight: 52.2 kg (115 lb) SpO2: 98 % Physical Exam Vitals and nursing note reviewed. Constitutional: General: She is in acute distress. Appearance: Normal appearance. She is well-developed. She is not toxic-appearing. Comments: Vitally stable here in the ER afebrile patient nontoxic here but uncomfortable HENT: Head: Normocephalic and atraumatic. Mouth/Throat: Mouth: Mucous membranes are moist. Pharynx: Oropharynx is clear. Eyes: General: No scleral icterus. Extraocular Movements: Extraocular movements intact. Conjunctiva/sclera: Conjunctivae normal. Pupils: Pupils are equal, round, and reactive to light. Cardiovascular: Rate and Rhythm: Normal rate and regular rhythm. Pulmonary: Effort: Pulmonary effort is normal. No respiratory distress. Breath sounds: No stridor. No wheezing. Abdominal: General: Abdomen is flat. There is no distension. Tenderness: There is no guarding. Musculoskeletal: General: Tenderness present. No swelling. Cervical back: Normal range of motion and neck supple. No rigidity or tenderness. Right lower leg: No edema. Left lower leg: No edema. Comments: Subjective tenderness in both legs but no gross swelling at all no effusions noted etc. Skin: General: Skin is warm and dry. Capillary Refill: Capillary refill takes less than 2 seconds. Coloration: Skin is not jaundiced or pale. Findings: No rash. Neurological: General: No focal deficit present. Mental Status: She is alert and oriented to person, place, and time. Mental status is at baseline. Psychiatric: Comments: Patient is appropriate here in the ER. Just uncomfortable ED Course, Procedures, & Data Records reviewed in epic as noted refer to HPI also care plan reviewed etc. Meds reviewed allergiesreviewed. Patient here in the ER we will plan to reaccessed port and give a liter of LR over 2 hours along with this Dilaudid 2 mg IV every hour x 3 doses Toradol if needed will wait for renal function Zofran 8 mg ordered IV also Benadryl 50 mg orally. Will reevaluate labs including reticulocyte count urinalysis etc. Patient had IV established patient given fluids given pain control etc. labs drawn reviewed also. INR 1.45. Magnesium 2.1 test negative. Sodium 138 potassium 4.3. Bicarb is 20 gap is 10 calcium 8.7 glucose 108 bilirubin 1.1. Reticulocyte percent is 11.2. Urinalysis negative hemoglobin 7.9 white count 7.8. Platelets noted be 42 Patient reassessed here in the ER is feeling much better like to go home will follow-up with infusion center and return to concerns at this point feels much better and is comfortable discharge. Procedures Results for orders placed or performed [...] Negative Ketones Urine Negative Negative mg/dL Specific [place] Urine 1.009 1.003 - 1.035 Blood Urine [...] Status --------- ------ CBC with platelets and d...[[id number]] Abnormal Final result Please view results for these tests on the individual orders. Medications lactated ringers BOLUS 1,000 mL (0 mLs Intravenous Stopped 06/24/24 1245) ondansetron (ZOFRAN) injection 8 mg (8 mg Intravenous $Given 06/24/24 1019) diphenhydrAMINE (BENADRYL) capsule 50 mg (50 mg Oral $Given 06/24/24 1020) hydromorphone (DILAUDID) injection 2 mg (2 mg Intravenous $Given 06/24/24 1241) Labs Ordered and Resulted from Time of ED Arrival to Time of ED Departure INR - Abnormal Result Value INR 1.45 (*) COMPREHENSIVE METABOLIC PANEL - Abnormal Sodium 138 Potassium 4.3 Carbon Dioxide (CO2) 20 (*) Anion Gap 10 Urea Nitrogen 9.9 Creatinine 0.62 GFR Estimate >90 Calcium 8.7 (*) Chloride 108 (*) Glucose 98 Alkaline Phosphatase 119 AST 57 (*) ALT 53 (*) Protein Total 7.4 Albumin 4.0 Bilirubin Total 1.1 ROUTINE UA WITH MICROSCOPIC REFLEX TO CULTURE - Abnormal Color Urine Light Yellow Appearance Urine Clear Glucose Urine Negative Bilirubin Urine Negative Ketones Urine Negative Specific [place] Urine 1.009 Blood Urine Negative pH Urine 7.5 (*) Protein Albumin Urine Negative Urobilinogen Urine Normal Nitrite Urine Negative Leukocyte Esterase Urine Negative RBC Urine <1 WBC Urine <1 Squamous Epithelials Urine 11 (*) Hyaline Casts Urine 1 RETICULOCYTE COUNT - Abnormal % Reticulocyte 11.2 (*) Absolute Reticulocyte 0.280 (*) CBC WITH PLATELETS AND DIFFERENTIAL - Abnormal WBC Count 7.8 RBC Count 2.49 (*) Hemoglobin 7.9 (*) Hematocrit 24.8 (*) MCV 100 MCH 31.7 MCHC 31.9 RDW 19.0 (*) Platelet Count 482 (*) % Neutrophils 61 % Lymphocytes 26 % Monocytes 9 % Eosinophils 1 % Basophils 2 % Immature Granulocytes 1 NRBCs per 100 WBC 5 (*) Absolute Neutrophils 4.8 Absolute Lymphocytes 2.1 Absolute Monocytes 0.7 Absolute Eosinophils 0.1 Absolute Basophils 0.1 Absolute Immature Granulocytes 0.1 Absolute NRBCs 0.4 PARTIAL THROMBOPLASTIN TIME - Normal aPTT 32 MAGNESIUM - Normal Magnesium 2.1 HCG QUALITATIVE - Normal hCG Serum Qualitative Negative No orders to display Critical care was [...] The patient's management necessitated high risk (a parenteral controlled substance). Assessment & Plan Gianna Hernández is a 29 year old female with history of sickle cell disease, hemoglobin SS, acute chest syndrome in late 2023, prior PE, stroke, and endocarditis who presents to the emergency department with concerns for sickle cell pain flare. Patient seen yesterday and treated for flare also. Here in the ER no chest syndrome etc. his back symptoms without neurodeficits. Patient treated accordingly improved felt comfortable going home discharged with follow- up infusion center return if any concerns at all. At this point symptoms are typical for a recurrent sickle cell crisis flare. I have reviewed the nursing notes. I have reviewed the findings, diagnosis, plan and need for follow up with the patient. Discharge Medication List as of 06/24/2024 12:57 PM Final diagnoses: Sickle cell disease with crisis (H) I, Thelma Haines, am serving as a trained medical insurance claims specialist to document services personally performed by Richar Mahajan MD based on the provider's statements to me on June 24, 2024. This document has been checked and approved by the attending provider. I, Richar Mahajan MD, was physically present and have reviewed and verified the accuracy of thisnote documented by Thelma Haines, medical insurance claims specialist. Richar Mahajan MD [facility] 06/24/2024 This note was created at least in part by the use of [employer] voice dictation system. Inadvertent typographical errors may still exist. Richar Mahajan MD. Patient evaluated in the emergency department during the COVID-19 pandemic period. Careful attention to patients safety was addressed throughout the evaluation. Evaluation and treatment management was initiated with disposition made efficiently and appropriate as possible to minimize any risk of potential exposure to patient during this evaluation. Richar Mahajan MD 06/24/242108 UTER SUPPORT SPECIALIST INSTRUCTOR documented in this encounter Plan of Treatment Not on file documented as of this encounter Goals Goal Patient Goal Type Associated Problems Recent Progress Patient-Stated? Author Pain Management General On track( 025 12:40 PM COMPUTER SUPPORT SPECIALIST INSTRUCTOR) Yes Juhi Benson, SOFIA Note: Goal Statement: [...] REFLEX TO CULTURE STAT 06/24/2024 10:15 AM COMPUTER SUPPORT SPECIALIST INSTRUCTOR CBC WITH PLATELETS AND DIFFERENTIAL STAT 06/24/2024 10:11 AM COMPUTER SUPPORT SPECIALIST INSTRUCTOR CBC WITH PLATELETS & DIFFERENTIAL STAT 06/24/2024 10:11 AM COMPUTER SUPPORT SPECIALIST INSTRUCTOR RETICULOCYTE COUNT STAT 06/24/2024 10 :11 AM COMPUTER SUPPORT SPECIALIST INSTRUCTOR INR STAT 06/24/2024 10:11 AM COMPUTER SUPPORT SPECIALIST INSTRUCTOR PARTIAL THROMBOPLASTIN TIME STAT 06/24/2024 10:11 AM COMPUTER SUPPORT SPECIALIST INSTRUCTOR MAGNESIUM STAT 06/24/2024 10:11 AM COMPUTER SUPPORT SPECIALIST INSTRUCTOR HCG QUALITATIVE STAT 06/24/2024 10:11 AM COMPUTER SUPPORT SPECIALIST INSTRUCTOR COMPREHENSIVE METABOLIC PANEL STAT 06/24/2024 10:11 AM COMPUTER SUPPORT SPECIALIST INSTRUCTOR documented in this encounter Results * (ABNORMAL) UA with Microscopic reflex to Culture (06/24/2024 10:15 AM COMPUTER SUPPORT SPECIALIST INSTRUCTOR) Color Urine Light Yellow Colorless, Straw, Light Yellow, Yellow 06/24/2024 10:25 AM COMPUTER SUPPORT SPECIALIST INSTRUCTOR [facility] Appearance Urine Clear Clear 06/25/19 10:25 AM COMPUTER SUPPORT SPECIALIST INSTRUCTOR [facility] Glucose Urine Negative Negative mg/dL 06/24/2024 10:25 AM COMPUTER SUPPORT SPECIALIST INSTRUCTOR [facility] Bilirubin Urine Negative Negative 10:25 AM COMPUTER SUPPORT SPECIALIST INSTRUCTOR [facility] Ketones Urine Negative Negative mg/dL 06/24/2024 10:25 AM COMPUTER SUPPORT SPECIALIST INSTRUCTOR [facility] Specific [place] Urine 1.009 1.003 - 1.035 06/24/2024 10:25 AM COMPUTER SUPPORT SPECIALIST INSTRUCTOR [facility] Blood Urine Negative Negative 06/24/2024 10:25 AM COMPUTER SUPPORT SPECIALIST INSTRUCTOR [facility] pH Urine 7.5(H) 5.0 - 7.0 06/24/2024 10:25 AM COMPUTER SUPPORT SPECIALIST INSTRUCTOR [facility] Protein Albumin Urine Negative Negative mg/dL 06/24/2024 10:25 AM COMPUTER SUPPORT SPECIALIST INSTRUCTOR [facility] Urobilinogen Urine Normal Normal, 2.0 mg/dL 06/24/2024 10:25 AM COMPUTER SUPPORT SPECIALIST INSTRUCTOR [facility] Nitrite Urine Negative Negative 06/24/2024 10:25 AM COMPUTER SUPPORT SPECIALIST INSTRUCTOR [facility] Leukocyte Esterase Urine Negative Negative 06/24/2024 10:25 AM COMPUTER SUPPORT SPECIALIST INSTRUCTOR [facility] RBC Urine <1 <=2 /HPF 06/24/2024 10:25 AM COMPUTER SUPPORT SPECIALIST INSTRUCTOR [facility] WBC Urine <1 <=5 /HPF 06/24/2024 10:25 AM COMPUTER SUPPORT SPECIALIST INSTRUCTOR [facility] Squamous Epithelials Urine 11(H) <=1 /HPF 06/24/2024 10:25 AM COMPUTER SUPPORT SPECIALIST INSTRUCTOR [facility] Hyaline Casts Urine 1 <=2 /LPF 06/24/2024 10:25 AM COMPUTER SUPPORT SPECIALIST INSTRUCTOR [facility] Urine MID-STREAM URINE SPECIMEN / Unknown Non-blood Collection / Unknown 06/24/2024 10:15 AM COMPUTER SUPPORT SPECIALIST INSTRUCTOR 06/24/2024 10:20 AM COMPUTER SUPPORT SPECIALIST INSTRUCTOR Narrative [facility] - 06/24/2024 10:25 AM COMPUTER SUPPORT SPECIALIST INSTRUCTOR Urine Culture not indicated us Richar Mahajan MD LAB - URINE ORDERABLES Liss bola Result [facility] [place] [facility] [address] [facility] [address], [address] [place] [phone], [facility] * (ABNORMAL) CBC with platelets and differential (06/24/2024 10:11 AM COMPUTER SUPPORT SPECIALIST INSTRUCTOR) WBC Count 7.8 4.0 - 11.0 10e3/uL 06/24/2024 10:28 AM COMPUTER SUPPORT SPECIALIST INSTRUCTOR [facility] RBC Count 2.49(L) 3.80 - 5.20 10e6/uL 06/24/2024 10:28 AM COMPUTER SUPPORT SPECIALIST INSTRUCTOR [facility] Hemoglobin 7.9(L) 11.7 - 15.7 g/dL 06/24/2024 10:28 AM COMPUTER SUPPORT SPECIALIST INSTRUCTOR [facility] Hematocrit 24.8(L) 35.0 - 47.0 % 06/24/2024 10:28 AM COMPUTER SUPPORT SPECIALIST INSTRUCTOR [facility] MCV 100 78 - 100 fL 06/24/2024 10:28 AM COMPUTER SUPPORT SPECIALIST INSTRUCTOR [facility] MCH 31.7 26.5 - 33.0 pg 06/24/2024 10:28 AM COMPUTER SUPPORT SPECIALIST INSTRUCTOR [facility] MCHC 31.9 31.5 - 36.5 g/dL 06/24/2024 10:28 AM COMPUTER SUPPORT SPECIALIST INSTRUCTOR [facility] RDW 19.0(H) 10.0 - 15.0 % 06/24/2024 10:28 AM COMPUTER SUPPORT SPECIALIST INSTRUCTOR [facility] Platelet Count 482(H) 150 - 450 10e3/uL 06/24/2024 10:28 AM COMPUTER SUPPORT SPECIALIST INSTRUCTOR [facility] % Neutrophils 61 % 06/24/2024 10:28 AM COMPUTER SUPPORT SPECIALIST INSTRUCTOR [facility] % Lymphocytes 26 % 06/24/2024 10:28 AM COMPUTER SUPPORT SPECIALIST INSTRUCTOR [facility] % Monocytes 9 % 06/24/2024 10:28 AM COMPUTER SUPPORT SPECIALIST INSTRUCTOR [facility] % Eosinophils 1 % 06/24/2024 10:28 AM COMPUTER SUPPORT SPECIALIST INSTRUCTOR [facility] % Basophils 2 % 06/24/2024 10:28 AM COMPUTER SUPPORT SPECIALIST INSTRUCTOR [facility] % Immature Granulocytes 1 % 06/24/2024 10:28 AM COMPUTER SUPPORT SPECIALIST INSTRUCTOR [facility] NRBCs per 100 WBC 5(H) <1 /100 03/01/2 025 10:28 AM COMPUTER SUPPORT SPECIALIST INSTRUCTOR [facility] Absolute Neutrophils 4.8 1.6 - 8.3 10e3/uL 06/24/2024 10:28 AM COMPUTER SUPPORT SPECIALIST INSTRUCTOR [facility] Absolute Lymphocytes 2.1 0.8 - 5.3 10e3/uL 06/24/2024 10:28 AM COMPUTER SUPPORT SPECIALIST INSTRUCTOR [facility] Absolute Monocytes 0.7 0.0 - 1.3 10e3/uL 06/24/2024 10:28 AM COMPUTER SUPPORT SPECIALIST INSTRUCTOR [facility] Absolute Eosinophils 0.1 0.0 - 0.7 10e3/uL 06/24/2024 10:28 AM COMPUTER SUPPORT SPECIALIST INSTRUCTOR [facility] Absolute Basophils 0.1 0.0 - 0.2 10e3/uL 06/24/2024 10:28 AM COMPUTER SUPPORT SPECIALIST INSTRUCTOR [facility] Absolute Immature Granulocytes 0.1 <=0.4 10e3/uL 06/24/2024 10:28 AM COMPUTER SUPPORT SPECIALIST INSTRUCTOR [facility] Absolute NRBCs 0.4 10e3/uL 06/24/2024 10:28 AM COMPUTER SUPPORT SPECIALIST INSTRUCTOR [facility] Blood BLOOD SPECIMEN / Unknown Venipuncture / Unknown 06/24/2024 10:11 AM COMPUTER SUPPORT SPECIALIST INSTRUCTOR 06/24/2024 10:22 AM COMPUTER SUPPORT SPECIALIST INSTRUCTOR Richar Mahajan MD LAB - BLOOD ORDERABLES Liss l Result [facility] [place] [facility] [address] [place] [address], [address] [phone] * (ABNORMAL) Reticulocyte count (06/24/2024 10:11 AM COMPUTER SUPPORT SPECIALIST INSTRUCTOR) Pathologist [facility] % Reticulocyte 11.2(H) 0.5 - 2.0 % 06/24/2024 10:28 AM COMPUTER SUPPORT SPECIALIST INSTRUCTOR [facility] Absolute Reticulocyte 0.280(H) 0.025 - 0.095 10e6/uL 06/24/2024 10:28 AM COMPUTER SUPPORT SPECIALIST INSTRUCTOR [facility] Blood BLOOD SPECIMEN / Unknown Venipuncture / Unknown 06/24/2024 10:11 AM COMPUTER SUPPORT SPECIALIST INSTRUCTOR 06/24/2024 10:22 AM COMPUTER SUPPORT SPECIALIST INSTRUCTOR Richar Mahajan MD LAB - BLOOD ORDERABLES Liss l Result [facility] [place] [facility] [address] [facility] [place], [address] * HCG qualitative Blood (06/24/2024 10:11 AM COMPUTER SUPPORT SPECIALIST INSTRUCTOR) Pathologist [facility] hCG Serum Qualitative Negative Negative JARET 06/24/2024 10:33 AM COMPUTER SUPPORT SPECIALIST INSTRUCTOR [facility] Comment:This test is for scr eening purposes. Results should be interpreted along with the clinical picture. Confirmation testing is available if warranted by ordering [id number], HCG Quantitative . Blood BLOOD SPECIMEN / Unknown Venipuncture / Unknown 06/24/2024 10:11 AM COMPUTER SUPPORT SPECIALIST INSTRUCTOR 06/24/2024 10:20 AM COMPUTER SUPPORT SPECIALIST INSTRUCTOR Richar Mahajan MD LAB - BLOOD ORDERABLES Liss l Result Performing Organization Address [facility] Co de Phone Number [facility] [address] [facility] [place], [address] * Magnesium (06/24/2024 10:11 AM COMPUTER SUPPORT SPECIALIST INSTRUCTOR) Pathologist [facility] Magnesium 2.1 1.7 - 2.3 mg/dL 06/24/2024 10:51 AM COMPUTER SUPPORT SPECIALIST INSTRUCTOR [facility] Blood BLOOD SPECIMEN / Unknown Venipuncture / Unknown 06/24/2024 10:11 AM COMPUTER SUPPORT SPECIALIST INSTRUCTOR 06/24/2024 10:21 AM COMPUTER SUPPORT SPECIALIST INSTRUCTOR Richar Mahajan MD LAB - BLOOD ORDERABLES Liss l Result Performing Organization Address City/[facility]/ZIP Co de Phone Number [facility] [place] [facility] [address] [facility], [address] * (ABNORMAL) Comprehensive metabolic panel (06/24/2024 10:11 AM COMPUTER SUPPORT SPECIALIST INSTRUCTOR) Pathologist [facility] Sodium 138 135 - 145 mmol/L 06/24/2024 10:51 AM COMPUTER SUPPORT SPECIALIST INSTRUCTOR [facility] Potassium 4.3 3.4 - 5.3 mmol/L 06/24/2024 10:51 AM COMPUTER SUPPORT SPECIALIST INSTRUCTOR [facility] Carbon Dioxide (CO2) 20(L) 22 - 29 mmol/L 06/24/2024 10:51 AM COMPUTER SUPPORT SPECIALIST INSTRUCTOR [facility] Anion Gap 10 7 - 15 mmol/L 06/24/2024 10:51 AM COMPUTER SUPPORT SPECIALIST INSTRUCTOR [facility] Urea Nitrogen 9.9 6.0 - 20.0 mg/dL 06/24/2024 10:51 AM COMPUTER SUPPORT SPECIALIST INSTRUCTOR [facility] Creatinine 0.62 0.51 - 0.95 mg/dL 06/24/2024 10:51 AM COMPUTER SUPPORT SPECIALIST INSTRUCTOR [facility] GFR Estimate >90 >60 mL/min/1.7 3m2 06/24/2024 10:51 AM COMPUTER SUPPORT SPECIALIST INSTRUCTOR [facility] Comment:eGFR calculated 2020 CKD-EPI equation. Calcium 8.7(L) 8.8 - 10.4 mg/dL 06/24/2024 10:51 AM COMPUTER SUPPORT SPECIALIST INSTRUCTOR [facility] Chloride 108(H) 98 - 107 mmol/L 06/24/2024 10:51 AM COMPUTER SUPPORT SPECIALIST INSTRUCTOR [facility] Glucose 98 70 - 99 mg/dL 06/24/2024 10:51 AM COMPUTER SUPPORT SPECIALIST INSTRUCTOR [facility] Alkaline Phosphatase 119 40 - 150 U/L 06/24/2024 10:51 AM COMPUTER SUPPORT SPECIALIST INSTRUCTOR [facility] AST 57(H) 0 - 45 U/L 06/24/2024 10:51 AM COMPUTER SUPPORT SPECIALIST INSTRUCTOR [facility] ALT 53(H) 0 - 50 U/L 06/24/2024 10:51 AM COMPUTER SUPPORT SPECIALIST INSTRUCTOR [facility] Protein Total 7.4 6.4 - 8.3 g/dL 06/24/2024 10:51 AM COMPUTER SUPPORT SPECIALIST INSTRUCTOR [facility] Albumin 4.0 3.5 - 5.2 g/dL 06/24/2024 10:51 AM COMPUTER SUPPORT SPECIALIST INSTRUCTOR [facility] Bilirubin Total 1.1 <=1.2 mg/dL 06/24/2024 10:51 AM COMPUTER SUPPORT SPECIALIST INSTRUCTOR [facility] Blood BLOOD SPECIMEN / Unknown Venipuncture / Unknown 06/24/2024 10:11 AM COMPUTER SUPPORT SPECIALIST INSTRUCTOR 06/24/2024 10:21 AM COMPUTER SUPPORT SPECIALIST INSTRUCTOR Richar Mahajan MD LAB - BLOOD ORDERABLES Liss [place]aza Result [facility] [place] [facility] [address] [facility] [address] [facility], [address] [place] [address] * (ABNORMAL) INR (06/24/2024 10:11 AM COMPUTER SUPPORT SPECIALIST INSTRUCTOR) INR 1.45(H) 0.85 - 1.15 06/24/2024 10:54 AM COMPUTER SUPPORT SPECIALIST INSTRUCTOR [facility] Blood BLOOD SPECIMEN / Unknown Venipuncture / Unknown 06/24/2024 10:11 AM COMPUTER SUPPORT SPECIALIST INSTRUCTOR 06/24/2024 10:21 AM COMPUTER SUPPORT SPECIALIST INSTRUCTOR Richar Mahajan MD LAB - BLOOD ORDERABLES Liss l Result [facility] [place] [facility] [address] [facility], [address] * Partial thromboplastin time (06/24/2024 10:11 AM COMPUTER SUPPORT SPECIALIST INSTRUCTOR) aPTT 32 22 - 38 Seconds 06/24/2024 10:55 AM COMPUTER SUPPORT SPECIALIST INSTRUCTOR [facility] Blood BLOOD SPECIMEN / Unknown Venipuncture / Unknown 06/24/2024 10:11 AM COMPUTER SUPPORT SPECIALIST INSTRUCTOR 06/24/2024 10:21 AM COMPUTER SUPPORT SPECIALIST INSTRUCTOR Richar Mahajan MD LAB - BLOOD ORDERABLES Liss l Result LABORATORY [facility] [address] [facility], Room [address] [place] [address] documented in this encounter Visit Diagnoses Diagnosis Sickle cell disease with crisis (H) Hb-SS disease with crisis documented in this encounter Administered Medications Inactive Administered Medications - up to 3 most recent administrations Medication Order MAR Action Action Date Dose Rate Site diphenhydrAMINE (BENADRYL) capsule 50 mg 50 mg, Oral, ONCE, On 06/24/24 at 0935, For 1 dose $Given 06/24/2024 10:20 AM COMPUTER SUPPORT SPECIALIST INSTRUCTOR 50 mg hydromorphone (DILAUDID) injection 2 mg 2 mg, Intravenous, EVERY 1 HOUR PRN, severe pain, Starting on 06/24/24 at 0933, For 3 doses $Given 06/24/2024 12:41 PM COMPUTER SUPPORT SPECIALIST INSTRUCTOR 2 mg $Given 06/24/2024 11:21 AM COMPUTER SUPPORT SPECIALIST INSTRUCTOR 2 mg $Given 06/24/2024 10:19 AM COMPUTER SUPPORT SPECIALIST INSTRUCTOR 2 mg lactated ringers BOLUS 1,000 mL Intravenous, 1,000 mL, ONCE, at 500 mL/hr, Administer over 2 Hours, On 06/24/24 at 0935, For 1 dose $New Bag 06/24/2024 10:20 AM COMPUTER SUPPORT SPECIALIST INSTRUCTOR 1,000 mLs 500 mL/hr lidocaine (LMX4) cream [...] For 1 dose $Given 06/24/2024 10:19 AM COMPUTER SUPPORT SPECIALIST INSTRUCTOR 8 mg sodium chloride (PF) 0.9% PF flush 3 mL 3 mL, Intracatheter, EVERY 8 HOURS, First dose on 06/24/24 at 0935, to lock peripheral IV dormant line $Given 06/24/2024 10:14 AM COMPUTER SUPPORT SPECIALIST INSTRUCTOR 3 mLs sodium chloride (PF) 0.9% PF flush 3 mL 3 mL, Intracatheter, EVERY 1 MIN PRN, line flush, other, to ensure patency or to lock dormant line, Starting on 06/24/24 at 0930 documented in this encounter Active and Recently Administered Medications Times are shown in COMPUTER SUPPORT SPECIALIST INSTRUCTOR. Scheduled Medication Order 06/22/2024 06/23/2024 06/24/2024 diphenhydrAMINE [...] dose 1019 ($Given - Provi nas: Juan Uriostegui, SOFIA) sodium chloride (PF) 0.9% PF flush 3 [...] 0930 documented in this encounter Care Teams Harp Repairer Relationship Specialty Start Date End Date Veronica Jospeh MD [address] [place] [address] PCP - General Family Medicine 06/18/24 Mor Ramsey Medical Student 04/03/24 Case Samuel MD [address] [place] [address] [address], [address] [place] [address] Assigned Pediatric Specialist Provider 05/18/24 Juhi Benson, RN Specialty Mrp Controller Hematology & Oncology 05/29/24 documented as of this encounter
[2024-06-25] MEDS: LACTATED RINGERS 1000 ML 1,000 ML 500 ML IV (15:11)
[2024-06-25] MEDS: ONDANSETRON 2 MG/ML inj 8 MG IVP (15:11)
[2024-06-25] MEDS: HYDROmorphone 0.5 mg/0.5 ml inj 2 MG IVP ×2 (15:17→16:22)
[2024-06-25 15:27] LABS: Basophils Absolute Auto 0.14 K/uL (0.00-0.30); Eosinophils Absolute Auto 0.16 K/uL (0.00-0.50); Eosinophils Percent Auto 2.2 % (0.0-7.0); Hematocrit 25.4 % (33.0-51.0); Hemoglobin* 8.6 gm/dL (12.0-16.0); Immature Granulocytes Abs Auto 0.06 K/uL (0.00-0.30); Immature Granulocytes Pct Auto 0.8 %; Lymphocytes Absolute Auto 2.16 K/uL (0.90-2.90); Lymphocytes Percent Auto 30.3 % (20-44); Mean Corpuscular HGB Conc 34 gm/dL (32-36); Mean Corpuscular Hemoglobin 33 pg (26-34); Mean Corpuscular Volume 97 fL (80-100); Monocytes Percent Auto 10.2 % (0.0-11.0); Neutrophils Absolute Auto 3.88 K/uL (1.7-7.0); Neutrophils Percent Auto 54.5 % (42.0-72.0); Platelet Count* 548 K/uL (140-440); RDW Coefficient of Variation % 18.7 % (11.5-15.5); Red Blood Count 2.62 m/uL (4.00-5.20); White Blood Count* 7.13 K/uL (4.50-11.00)
[2024-06-25] MEDS: diphenhydrAMINE 50 MG/ML inj 25 MG IVP (15:37)
[2024-06-25 15:42] LABS: Chloride* 107 mmol/L (96-114)
[2024-06-25 15:43] LABS: Sodium* 138 mmol/L (135-149)
[2024-06-25 15:45] LABS: Blood Urea Nitrogen* 6 mg/dL (5-24); Creatinine* 0.6 mg/dL (0.5-1.5); Est. Creatinine Clearance* 103.46; Estimated Glomerular Filt Rate 124 ml/min
[2024-06-25 15:46] LABS: Anion Gap 9 mEq/L (7-15); Calcium* 9.1 mg/dL (8.4-10.6); Carbon Dioxide* 22 mmol/L (20-32); Glucose* 115 mg/dL (60-115)
[2024-06-25 15:51] LABS: Slide Review Reflex No
[2024-06-25 15:54] VITALS: BP 131/92; PULSE 82
[2024-06-25 16:00] VITALS: BP 132/100; PULSE 84; RESP 14
--- OUTSIDE RECORDS SUMMARY | 2024-06-25 16:12 | XMS_ITS | Clinical Summary ---
Author Organization [facility] Address [address] [place] [phone] Care Team Providers Care Analysis Manager Name Role Phone Veronica Joseph MD Primary Care Provider [phone] Allergies Active Allergy Reactions Criticality Noted Date [...] ickle cell pain crisis (HC) Inhale 1 [place] into affected nostril(s) each time if needed [...] for Pain. 10 Tablet 5 2:58 PM HARVEST CONTRACTOR 04/27/19 25 Active folic acid 1 mg tablet Take 1 tablet (1 mg) by mouth daily. 30 Tablet 5 1:41 PM HARVEST CONTRACTOR 05/01/19 25 Active hydroxyurea (HYDREA) 500 mg capsule Take 2 capsules (1,000 mg) by mouth 2 times daily 120 Capsule 05/01/19 25 Active multivitamin with folic acid 0.4 mg (Thera) Take 1 tablet by mouth daily. 30 Tablet 11 5 10:39 AM HARVEST CONTRACTOR 05/01/19 25 Active amoxicillin-clavul anate (AUGMENTIN) 875-125 mg tablet Take 1 tablet by mouth 2 times daily for 7 days. 14 Tablet 5 10:39 AM HARVEST CONTRACTOR 05/08/19 25 Active doxycycline hyclate 100 mg capsule Take 1 capsule (100 mg) by mouth 2 times daily for 7 days. 14 Capsule 5 10:39 AM HARVEST CONTRACTOR 05/08/19 25 Active HYDROmorphone 4 mg tablet Take 1 Tablet (4 mg) by mouth every 6 hours if needed for severe pain. 30 Tablet 5 1:04 PM HARVEST CONTRACTOR 05/09/19 25 Active FLUoxetine (PROZAC) 10 mg capsule Take 1 capsule (10 mg) by mouth daily. 40 Capsule 1 5 3:26 PM HARVEST CONTRACTOR 05/29/19 25 Active naloxone (NARCAN) 4 mg/actuation nasal spray [place] 1 spray (4 mg) into one nostril [...] severe pain. 40 Tablet 5 11:11 AM HARVEST CONTRACTOR 06/15/19 25 Active HYDROmorphone 2 mg tablet Take 2 tablets (4 mg) by mouth every 6 hours as needed for severe pain. 30 Tablet 5 4:42 PM HARVEST CONTRACTOR 05/24/19 25 025 Discontin ued(Reord er (E-cancel not sent)) HYDROmorphone 2 mg tablet Take 2 tablets (4 mg) by mouth every 6 hours as needed for severe pain. 40 Tablet 5 3:26 PM HARVEST CONTRACTOR 05/29/19 25 025 Discontin ued(Reord er (E-cancel not sent)) HYDROmorphone 2 mg tablet Take 2 tablets (4 mg) by mouth every 6 hours as needed for severe pain. 40 Tablet 5 4:27 PM HARVEST CONTRACTOR 06/07/19 25 025 Discontin ued(Reord er (E-cancel [...] Department Care Team Description 06/11/2024 1:08 AM HARVEST CONTRACTOR - 06/11/2024 3:57 AM [facility] Emergency [facility] [address] [place] [address] Juan Kunz, Sickle cell pain crisis (HC) (Primary Dx) Discharge Disposition: Home Self Care 06/11/2024 Travel 06/06/2024 Refill [facility] [address] [place] [address] Veronica Joseph MD Refill Request 06/03/2024 11:37 AM HARVEST CONTRACTOR - 06/03/2024 2:[address] [address] Ben Swan MD Viral syndrome (Primary Dx) Discharge Disposition: Home Self Care 06/03/2024 Travel 05/29/2024 1:53 PM HARVEST CONTRACTOR - 05/29/2024 2:[address] [address] Ana Pacheco MD Sickle cell pain crisis (HC) (Primary Dx) Discharge Disposition: Home Self Care 05/29/2024 Travel 05/21/2024 10:35 AM HARVEST CONTRACTOR - 05/21/2024 2:[address] [address] Juliana Gil DO Sickle cell disease with crisis (HC) (Primary Dx); Diffuse pain Discharge Disposition: Home Self Care 05/21/2024 Travel 05/18/2024 2:12 AM HARVEST CONTRACTOR - 05/18/2024 4:[address] [address] Onesimo Gaviria MD Sickle cell pain crisis (HC) (Primary Dx) Discharge Disposition: Home Self Care 05/18/2024 Travel 05/17/2024 Telephone [facility] [address] [place] [address] Veronica Joseph MD Questions (HEALTH STATUS ) 05/10/2024 Telephone [facility] [address] [place] [address] Veronica Joseph MD Follow Up 05/07/2024 5:53 PM HARVEST CONTRACTOR - 05/07/2024 8:[address] [address] Caryn Downs MD Sickle cell anemia with pain (HC) (Primary Dx); RUQ abdominal pain Discharge Disposition: Home Self Care 05/07/2024 Travel 05/03/2024 10:59 PM HARVEST CONTRACTOR - 05/04/2024 2:[address] [address] Anika Mccracken MD Discharge Disposition: Home Self Care 05/03/2024 Travel 05/02/2024 10:15 AM HARVEST CONTRACTOR - 05/02/2024 12:[address] [address] Juan Kunz DO Sickle cell pain crisis (HC) (Primary Dx) Discharge Disposition: Home Self Care 05/02/2024 Travel 04/27/2024 Telephone [facility] [address] [place] [address] Veronica Joseph MD 04/27/2024 Refill [facility] [address] [place] [address] Veronica Joseph MD Refill Request (HYDROmorphone 4 mg tablet ) 04/24/2024 1:31 AM HARVEST CONTRACTOR - 04/24/2024 4:[address] [address] Onesimo Gaviria MD Sickle cell pain crisis (HC) (Primary Dx); Community acquired pneumonia, unspecified laterality Discharge Disposition: Home Self Care 04/24/2024 Refill [facility] [address] [place] [address] Veronica Joseph MD Refill Request (HYDROmorphone 4 mg tablet ) 04/24/2024 Travel 04/22/2024 1:40 PM HARVEST CONTRACTOR - 04/22/2024 5:[address] [place] [address] Shauna Flaherty PA Sickle cell pain crisis (HC) (Primary Dx) Discharge Disposition: Home Self Care 04/22/2024 Travel 04/20/2024 3:40 PM HARVEST CONTRACTOR - 04/20/2024 6:[address] [address] Maria Teresa Haider PA Left hip pain (Primary Dx) Discharge Disposition: Home Self Care 04/20/2024 Travel 04/20/2024 Telephone [facility] [address] [place] [address] Veronica Joseph MD 04/20/2024 Refill [facility] [address] [place] [address] Veronica Joseph MD Refill Request (HYDROmorphone 4 mg tablet) 04/19/2024 7:18 PM HARVEST CONTRACTOR - 04/19/2024 9:[address] [address] Maria Teresa Haider PA Closed right hip fracture, initial encounter (HC) (Primary Dx); Avascular necrosis of bone of right hip (HC); Sickle cell pain crisis (HC) Discharge Disposition: Home Self Care 04/19/2024 Travel 04/18/2024 3:51 AM HARVEST CONTRACTOR - 04/18/2024 5:[address] [address] Elizabeth Duffy MD Left hip pain (Primary Dx); Sickle cell disease with crisis (HC) Discharge Disposition: Home Self Care 04/17/2024 10:36 AM HARVEST CONTRACTOR - 04/17/2024 12:[address] [address] Juhi Hull PA Left hip pain (Primary Dx); Sickle cell pain crisis (HC) Discharge Disposition: Home Self Care 04/17/2024 Travel 04/15/2024 5:33 PM HARVEST CONTRACTOR - 04/15/2024 10:24 PM HARVEST CONTRACTOR [address] [address] Kathy Contreras MD Sickle cell pain crisis (HC) (Primary Dx) Discharge Disposition: Home Self Care 04/15/2024 Travel 04/11/2024 9:55 AM HARVEST CONTRACTOR Office Visit [facility] [address] [place] [address] Veronica Joseph MD Follow Up (Sickle Cell) 04/11/2024 Travel 04/08/2024 6:17 PM HARVEST CONTRACTOR - 04/08/2024 8:[address] [address] Ana Pacheco MD Sickle cell pain crisis (HC) (Primary Dx) Discharge Disposition: Home Self Care 04/08/2024 Travel 04/06/2024 8:27 PM HARVEST CONTRACTOR - 04/06/2024 10:[address] [address] Tanmay Olivares PA Biliary colic (Primary Dx) Discharge Disposition: Home Self Care 04/06/2024 Travel 04/04/2024 6:29 PM HARVEST CONTRACTOR - 04/04/2024 10:[address] [address] Juhi Patel PA Sickle cell anemia with pain (HC) (Primary Dx); Opioid use Discharge Disposition: Home Self Care 04/04/2024 Travel 04/02/2024 3:52 PM HARVEST CONTRACTOR - 04/02/2024 6:[address] [address] Sabrina Ulrich PA Roy, David William, MD Sickle cell pain crisis (HC) (Primary Dx); Multiple pulmonary nodules Discharge Disposition: Home Self Care 04/02/2024 Travel 03/31/2024 Patient Outreach [facility] [address] [place] [address] Lavinia Owens, SOFIA Primary RN Care Management (LACE: 48); Hospital F/U (Diagnosis: Sickle cell pain crisis (HC) DOD: 03/30/24) 03/28/2024 7:19 PM HARVEST CONTRACTOR - 03/30/2024 9:28 AM HARVEST CONTRACTOR Emergency [address] [address] Onesimo Gaviria MD Qadri, Ghaziuddin Ahmed, MBBS Fuchs, Kurt Richard, MD Sickle cell pain crisis (HC) (Primary Dx) Discharge Disposition: Home Self Care 03/28/2024 12:19 AM HARVEST CONTRACTOR - 03/28/2024 4:24 AM HARVEST CONTRACTOR Emergency [address] [address] Mor Ramsey MD Sickle cell disease with crisis (HC) (Primary Dx); Chest pain, unspecified type Discharge Disposition: Home Self Care 03/28/2024 Telephone [facility] [address] [place] [address] Veronica Joseph MD Medication Management (HYDROmorphone 2 [...] on file Legal Sex Female 8:18 PM HARVEST CONTRACTOR Gender Identity Not on file Sexual Orientation Not on file Obstetrics History Last Filed Vital Signs Vital Sign Reading Time Taken Comments Blood Pressure 121/73 06/11/2024 3:30 AM HARVEST CONTRACTOR Pulse 93 06/11/2024 3:30 AM HARVEST CONTRACTOR Temperature 36.6 C (97.9 F) 06/11/2024 1:12 AM HARVEST CONTRACTOR Respiratory Rate 18 06/11/2024 3:00 AM HARVEST CONTRACTOR Oxygen Saturation 95% 06/11/2024 3:30 AM HARVEST CONTRACTOR Inhaled Oxygen Concentration - - Weight 51.7 kg (114 lb) 06/11/2024 1:10 AM HARVEST CONTRACTOR Height 154.9 cm (5' 1) 06/11/2024 1:10 AM HARVEST CONTRACTOR Body Mass Index 21.54 06/11/2024 1:10 AM HARVEST CONTRACTOR Plan of Treatment Health Maintenance Due Date [...] WITH AUTO DIFFERENTIAL STAT 06/03/2024 12:51 PM HARVEST CONTRACTOR INFLUENZA A/B PCR Today 06/03/2024 12: 51 PM HARVEST CONTRACTOR COVID-19 MOLECULAR Today 06/03/2024 12 :51 PM HARVEST CONTRACTOR BASIC METABOLIC PANEL STAT 06/03/2024 12:51 PM HARVEST CONTRACTOR CBC WITH AUTO DIFFERENTIAL STAT 06/03/2024 12:51 PM HARVEST CONTRACTOR XR CHEST 2 VIEWS PA AND LATERAL STAT 06/03/2024 12:34 PM HARVEST CONTRACTOR EKG 12 LEAD STAT 06/03/2024 11:48 AM HARVEST CONTRACTOR HEMOGLOBIN STAT 05/29/2024 2:23 PM HARVEST CONTRACTOR EKG 12 LEAD STAT 05/29/2024 2:03 PM HARVEST CONTRACTOR EKG 12 LEAD STAT 05/21/2024 10:19 AM HARVEST CONTRACTOR RED CELL MORPHOLOGY STAT 05/07/2024 6 :20 PM HARVEST CONTRACTOR PLATELET ESTIMATE STAT 05/07/2024 6:2 0 PM HARVEST CONTRACTOR RETICULOCYTES STAT 05/07/2024 6:20 PM HARVEST CONTRACTOR LIPASE STAT 05/07/2024 6:20 PM HARVEST CONTRACTOR HEPATIC FUNCTION PANEL STAT 6:20 PM HARVEST CONTRACTOR BASIC METABOLIC PANEL STAT 05/07/2024 6:20 PM HARVEST CONTRACTOR CBC W PLT NO DIFF STAT 05/07/2024 6:[address] CHEST PE STUDY STAT 05/04/2024 1:4 6 AM HARVEST CONTRACTOR RETICULOCYTES STAT 05/04/2024 12:24 AM HARVEST CONTRACTOR URINE Today 05/04/2024 12:07 AM HARVEST CONTRACTOR UA W/ SEDIMENT EXAM REFLEXED PER CRITERIA Today 05/04/2024 12:07 AM HARVEST CONTRACTOR CWS PATH REVIEW HEMATOLOGY STAT 05/03/2024 11:52 PM HARVEST CONTRACTOR RED CELL MORPHOLOGY STAT 05/03/2024 1 1:52 PM HARVEST CONTRACTOR PLATELET ESTIMATE STAT 05/03/2024 11: 52 PM HARVEST CONTRACTOR MANUAL DIFFERENTIAL STAT 05/03/2024 1 1:52 PM HARVEST CONTRACTOR CBC WITH AUTO DIFFERENTIAL STAT 05/03/2024 11:52 PM HARVEST CONTRACTOR D-DIMER,QUANTITATIVE STAT 05/03/2024 11:52 PM HARVEST CONTRACTOR HEPATIC FUNCTION PANEL STAT 11:52 PM HARVEST CONTRACTOR BASIC METABOLIC PANEL STAT 05/03/2024 11:52 PM HARVEST CONTRACTOR CBC WITH AUTO DIFFERENTIAL STAT 05/03/2024 11:52 PM HARVEST CONTRACTOR EKG 12 LEAD STAT 05/03/2024 11:48 PM HARVEST CONTRACTOR INFLUENZA A/B PCR Today 05/02/2024 10: 20 AM HARVEST CONTRACTOR COVID-19 MOLECULAR Today 05/02/2024 10 :20 AM HARVEST CONTRACTOR CBC WITH AUTO DIFFERENTIAL SULEMA 04/24/2024 2:16 AM HARVEST CONTRACTOR RETICULOCYTES Early AM 04/24/2024 2:16 AM HARVEST CONTRACTOR CBC WITH AUTO DIFFERENTIAL SULEMA 04/24/2024 2:16 AM HARVEST CONTRACTOR BASIC METABOLIC PANEL SULEMA 04/24/2024 2:16 AM HARVEST CONTRACTOR XR CHEST 2 VIEWS PA AND LATERAL STAT 04/24/2024 1:58 AM HARVEST CONTRACTOR EKG 12 LEAD SULEMA 04/24/2024 1:38 AM HARVEST CONTRACTOR RETICULOCYTES STAT 04/22/2024 2:21 PM HARVEST CONTRACTOR BASIC METABOLIC PANEL STAT 04/22/2024 2:21 PM HARVEST CONTRACTOR CBC W PLT NO DIFF STAT 04/22/2024 2:2 1 PM HARVEST CONTRACTOR XR CHEST 2 VIEWS PA AND LATERAL STAT 04/22/2024 1:18 PM HARVEST CONTRACTOR EKG 12 LEAD STAT 04/22/2024 1:06 PM HARVEST CONTRACTOR TYPE & SCREEN STAT 04/20/2024 4:43 PM HARVEST CONTRACTOR RED CELL MORPHOLOGY STAT 04/20/2024 4 :43 PM HARVEST CONTRACTOR PLATELET ESTIMATE STAT 04/20/2024 4:4 3 PM HARVEST CONTRACTOR MANUAL DIFFERENTIAL STAT 04/20/2024 4 :43 PM HARVEST CONTRACTOR CBC WITH AUTO DIFFERENTIAL STAT 04/20/2024 4:43 PM HARVEST CONTRACTOR RETICULOCYTES STAT 04/20/2024 4:43 PM HARVEST CONTRACTOR CBC WITH AUTO DIFFERENTIAL STAT 04/20/2024 4:43 PM HARVEST CONTRACTOR BASIC METABOLIC PANEL STAT 04/20/2024 4:25 PM HARVEST CONTRACTOR XR ANKLE 3 VIEWS LEFT STAT 04/18/2024 5:09 AM HARVEST CONTRACTOR C-REACTIVE PROTEIN STAT 04/18/2024 4: 59 AM HARVEST CONTRACTOR BASIC METABOLIC PANEL STAT 04/18/2024 4:59 AM HARVEST CONTRACTOR SEDIMENTATION RATE STAT 04/18/2024 4: 58 AM HARVEST CONTRACTOR CBC WITH AUTO DIFFERENTIAL STAT 04/18/2024 4:58 AM HARVEST CONTRACTOR RETICULOCYTES STAT 04/18/2024 4:58 AM HARVEST CONTRACTOR CBC WITH AUTO DIFFERENTIAL STAT 04/18/2024 4:58 AM HARVEST CONTRACTOR RED CELL MORPHOLOGY STAT 04/17/2024 1 0:50 AM HARVEST CONTRACTOR PLATELET ESTIMATE STAT 04/17/2024 10: 50 AM HARVEST CONTRACTOR C-REACTIVE PROTEIN SULEMA 04/17/2024 10 :50 AM HARVEST CONTRACTOR SEDIMENTATION RATE SULEMA 04/17/2024 10 :50 AM HARVEST CONTRACTOR CBC W PLT NO DIFF STAT 04/17/2024 10: 50 AM HARVEST CONTRACTOR BASIC METABOLIC PANEL STAT 04/17/2024 10:50 AM HARVEST CONTRACTOR RETICULOCYTES STAT 04/17/2024 10:50 AM HARVEST CONTRACTOR XR HIP 2 OR 3 VIEWS W PELVIS LEFT STAT 04/15/2024 6:34 PM HARVEST CONTRACTOR TYPE & SCREEN STAT 04/15/2024 6:10 PM HARVEST CONTRACTOR RED CELL MORPHOLOGY STAT 04/15/2024 6 :10 PM HARVEST CONTRACTOR PLATELET ESTIMATE STAT 04/15/2024 6:1 0 PM HARVEST CONTRACTOR C-REACTIVE PROTEIN STAT 04/15/2024 6: 10 PM HARVEST CONTRACTOR SEDIMENTATION RATE STAT 04/15/2024 6: 10 PM HARVEST CONTRACTOR CBC WITH AUTO DIFFERENTIAL STAT 04/15/2024 6:10 PM HARVEST CONTRACTOR BASIC METABOLIC PANEL STAT 04/15/2024 6:10 PM HARVEST CONTRACTOR RETICULOCYTES STAT 04/15/2024 6:10 PM HARVEST CONTRACTOR CBC WITH AUTO DIFFERENTIAL STAT 04/15/2024 6:10 PM HARVEST CONTRACTOR RED CELL MORPHOLOGY Timed 04/08/2024 8 :27 PM HARVEST CONTRACTOR PLATELET ESTIMATE Timed 04/08/2024 8:2 7 PM HARVEST CONTRACTOR RETICULOCYTES Early AM 04/08/2024 8:27 PM HARVEST CONTRACTOR CBC W PLT NO DIFF Early AM 04/08/2024 8:2 7 PM HARVEST CONTRACTOR XR CHEST 2 VIEWS PA AND LATERAL STAT 04/08/2024 7:28 PM HARVEST CONTRACTOR BASIC METABOLIC PANEL STAT 04/08/2024 7:05 PM HARVEST CONTRACTOR EKG 12 LEAD STAT 04/08/2024 5:50 PM HARVEST CONTRACTOR US ABDOMEN LIMITED GALLBLADDER STAT 04/06/2024 9:38 PM HARVEST CONTRACTOR CBC WITH AUTO DIFFERENTIAL STAT 04/06/2024 8:55 PM HARVEST CONTRACTOR RETICULOCYTES STAT 04/06/2024 8:55 PM HARVEST CONTRACTOR LIPASE STAT 04/06/2024 8:55 PM HARVEST CONTRACTOR COMP METABOLIC PANEL STAT 04/06/2024 8:55 PM HARVEST CONTRACTOR CBC WITH AUTO DIFFERENTIAL STAT 04/06/2024 8:55 PM HARVEST CONTRACTOR XR CHEST 2 VIEWS PA AND LATERAL STAT 04/04/2024 7:28 PM HARVEST CONTRACTOR RED CELL MORPHOLOGY STAT 04/04/2024 6 :54 PM HARVEST CONTRACTOR PLATELET ESTIMATE STAT 04/04/2024 6:5 4 PM HARVEST CONTRACTOR MANUAL DIFFERENTIAL STAT 04/04/2024 6 :54 PM HARVEST CONTRACTOR TROPONIN T (HS) ACUTE W/2HR REFLEX SULEMA 04/04/2024 6:54 PM HARVEST CONTRACTOR CBC WITH AUTO DIFFERENTIAL STAT 04/04/2024 6:54 PM HARVEST CONTRACTOR RETICULOCYTES STAT 04/04/2024 6:54 PM HARVEST CONTRACTOR BASIC METABOLIC PANEL STAT 04/04/2024 6:54 PM HARVEST CONTRACTOR CBC WITH AUTO DIFFERENTIAL STAT 04/04/2024 6:54 PM HARVEST CONTRACTOR EKG 12 LEAD STAT 04/04/2024 6:45 PM HARVEST CONTRACTOR XR CHEST 2 VIEWS PA AND LATERAL STAT 04/02/2024 4:42 PM HARVEST CONTRACTOR EKG 12 LEAD STAT 04/02/2024 4:24 PM HARVEST CONTRACTOR RED CELL MORPHOLOGY STAT 04/02/2024 4 :21 PM HARVEST CONTRACTOR PLATELET ESTIMATE STAT 04/02/2024 4:2 1 PM HARVEST CONTRACTOR CBC WITH AUTO DIFFERENTIAL STAT 04/02/2024 4:21 PM HARVEST CONTRACTOR RETICULOCYTES STAT 04/02/2024 4:21 PM HARVEST CONTRACTOR BASIC METABOLIC PANEL STAT 04/02/2024 4:21 PM HARVEST CONTRACTOR CBC WITH AUTO DIFFERENTIAL STAT 04/02/2024 4:21 PM HARVEST CONTRACTOR SODIUM Early AM 03/30/2024 8:15 AM HARVEST CONTRACTOR CREATININE Early AM 03/30/2024 8:15 AM HARVEST CONTRACTOR POTASSIUM Early AM 03/30/2024 8:15 AM HARVEST CONTRACTOR PLATELET COUNT Early AM 03/30/2024 8:15 AM HARVEST CONTRACTOR WHITE BLOOD COUNT Early AM 03/30/2024 8:1 5 AM HARVEST CONTRACTOR HEMOGLOBIN Early AM 03/30/2024 8:15 AM HARVEST CONTRACTOR WHITE BLOOD COUNT Early AM 03/29/2024 5:4 4 AM HARVEST CONTRACTOR BILIRUBIN,TOTAL Early AM 03/29/2024 5:44 AM HARVEST CONTRACTOR PLATELET COUNT Early AM 03/29/2024 5:44 AM HARVEST CONTRACTOR HEMOGLOBIN Early AM 03/29/2024 5:44 AM HARVEST CONTRACTOR RETICULOCYTES Early AM 03/29/2024 5:44 AM HARVEST CONTRACTOR BILIRUBIN,TOTAL/DIRECT SULEMA 7:53 PM HARVEST CONTRACTOR RED CELL MORPHOLOGY SULEMA 03/28/2024 7 :53 PM HARVEST CONTRACTOR PLATELET ESTIMATE SULEMA 03/28/2024 7:5 3 PM HARVEST CONTRACTOR MANUAL DIFFERENTIAL SULEMA 03/28/2024 7 :53 PM HARVEST CONTRACTOR CBC WITH AUTO DIFFERENTIAL SULEMA 03/28/2024 7:53 PM HARVEST CONTRACTOR CBC WITH AUTO DIFFERENTIAL SULEMA 03/28/2024 7:53 PM HARVEST CONTRACTOR BASIC METABOLIC PANEL SULEMA 03/28/2024 7:53 PM HARVEST CONTRACTOR BLOOD CULTURE STAT 03/28/2024 2:17 AM HARVEST CONTRACTOR PROCALCITONIN STAT 03/28/2024 2:06 AM HARVEST CONTRACTOR BLOOD CULTURE STAT 03/28/2024 2:06 AM HARVEST CONTRACTOR XR CHEST 2 VIEWS PA AND LATERAL STAT 03/28/2024 1:17 AM HARVEST CONTRACTOR C-REACTIVE PROTEIN SULEMA 03/28/2024 12 :53 AM HARVEST CONTRACTOR BASIC METABOLIC PANEL STAT 03/28/2024 12:53 AM HARVEST CONTRACTOR RETICULOCYTES STAT 03/28/2024 12:53 AM HARVEST CONTRACTOR CBC W PLT NO DIFF STAT 03/28/2024 12: 53 AM HARVEST CONTRACTOR EKG 12 LEAD STAT 03/28/2024 12:22 AM HARVEST CONTRACTOR from Last 3 Months Results * COVID-19 MOLECULAR (06/03/2024 12:51 PM HARVEST CONTRACTOR) Only the most recent of2 resultswithin the time period is included. COVID 19 [facility] MOLECULAR Not detected Not detected 06/03/2024 1:18 PM HARVEST CONTRACTOR [facility] 06/03/2024 1:18 PM HARVEST CONTRACTOR [facility] Comment:Specimen submitted t o [facility] for testing. Other SPECIMEN FROM NASOPHARYNGEAL STRUCTURE / Unknown Non-Blood / Unknown 06/03/2024 12:51 PM HARVEST CONTRACTOR 06/03/2024 12:54 PM HARVEST CONTRACTOR Ben Swan MD MICROBIOLOGY Final Res ult Performing Organization Address City/[facility] Co de Phone Number [facility] [address] [place] [phone], * INFLUENZA A/B PCR (06/03/2024 12:51 PM HARVEST CONTRACTOR) Only the most recent of2 resultswithin the time period is included. INFLUENZA A PCR NOT Detected 06/03/2024 1:18 PM HARVEST CONTRACTOR [facility] INFLUENZA B PCR NOT Detected 06/03/2024 1:18 PM HARVEST CONTRACTOR [facility] Other SPECIMEN FROM NASOPHARYNGEAL STRUCTURE / Unknown Non-Blood / Unknown 06/03/2024 12:51 PM HARVEST CONTRACTOR 06/03/2024 12:54 PM HARVEST CONTRACTOR Ben Swan MD MICROBIOLOGY Final Res ult Performing Organization Address [facility]/ZIP Co de Phone Number [facility] [address] [place] [id number], [place] [phone] * (ABNORMAL) CBC WITH AUTO DIFFERENTIAL (06/03/2024 12:51 PM HARVEST CONTRACTOR) Only the most recent of10 resultswithin the time period is included. WHITE BLOOD COUNT 11.0 4.5 - 11.0 thou/cu mm 06/03/2024 1:05 PM HARVEST CONTRACTOR [facility] RED BLOOD COUNT 2.94(L) 4.00 - 5.20 mil/cu mm 06/03/2024 1:05 PM HARVEST CONTRACTOR [facility] HEMOGLOBIN 9.3(L) 12.0 - 16.0 g/dL 06/03/2024 1:05 PM HARVEST CONTRACTOR [facility] HEMATOCRIT 26.9(L) 33.0 - 51.0 % 06/03/2024 1:05 PM HARVEST CONTRACTOR [facility] MCV 92 80 - 100 fL 06/03/2024 1:05 PM HARVEST CONTRACTOR [facility] MCH 31.6 26.0 - 34.0 pg 06/03/2024 1:05 PM [facility] MCHC 34.6 32.0 - 36.0 g/dL 06/03/2024 1:05 PM [facility] RDW 18.9(H) 11.5 - 15.5 % 06/03/2024 1:05 PM HARVEST CONTRACTOR [facility] PLATELET COUNT 456(H) 140 - 440 thou/cu mm 06/03/2024 1:05 PM [facility] MPV 9.8 6.5 - 11.0 fL 06/03/2024 1:05 PM [facility] NRBC 0.6 % 06/03/2024 1:05 PM [facility] ABS NRBC 0.1 thou /cu mm 06/03/2024 1:05 PM [facility] % NEUT 69.9 % 06/03/2024 1:05 PM HARVEST CONTRACTOR [facility] % LYMPH 15.1 % 06/03/2024 1:05 PM HARVEST CONTRACTOR [facility] % MONO 13.4 % 06/03/2024 1:05 PM HARVEST CONTRACTOR [facility] % EOS 0.2 % 06/03/2024 1:05 PM HARVEST CONTRACTOR [facility] % BASO 0.9 % 06/03/2024 1:05 PM HARVEST CONTRACTOR [facility] % IMMATURE GRAN (METAS,MYELOS,AR OS) 0.5 % 06/03/2024 1:05 PM HARVEST CONTRACTOR [facility] ABSOLUTE NEUTROPHILS 7.7(H) 1.7 - 7.0 thou/cu mm 06/03/2024 1:05 PM HARVEST CONTRACTOR [facility] ABSOLUTE LYMPHOCYTES 1.7 0.9 - 2.9 thou/cu mm 06/03/2024 1:05 PM HARVEST CONTRACTOR [facility] ABSOLUTE MONOCYTES 1.5(H) <0.9 thou/cu mm 06/03/2024 1:05 PM HARVEST CONTRACTOR [facility] ABSOLUTE EOSINOPHILS 0.0 <0.5 thou/cu mm 06/03/2024 1:05 PM HARVEST CONTRACTOR [facility] ABSOLUTE BASOPHILS 0.1 <0.3 thou/cu mm 06/03/2024 1:05 PM HARVEST CONTRACTOR [facility] ABSOLUTE IMMATURE GRANULOCYTES(MET ,MYELOS,PROS) 0.1 <0.3 thou/cu mm 06/03/2024 1:05 PM HARVEST CONTRACTOR [facility] Blood BLOOD SPECIMEN / Unknown IV Start / Unknown 06/03/2024 12:51 PM HARVEST CONTRACTOR 06/03/2024 12:54 PM HARVEST CONTRACTOR us Ben Swan MD HEMATOLOGY Final Res ult [facility] [address] [place] [address], * (ABNORMAL) BASIC METABOLIC PANEL (06/03/2024 12:51 PM HARVEST CONTRACTOR) Only the most recent of14 resultswithin the time period is included. SODIUM 135(L) 136 - 145 mmol/L 06/03/2024 1:13 PM [facility] POTASSIUM 4.5 3.5 - 5.1 mmol/L 06/03/2024 1:13 PM HARVEST CONTRACTOR [facility] CHLORIDE 101 98 - 107 mmol/L 06/03/2024 1:13 PM HARVEST CONTRACTOR [facility] CO2,TOTAL 21(L) 22 - 29 mmol/L 06/03/2024 1:13 PM HARVEST CONTRACTOR [facility] ANION GAP 13 5 - 18 06/03/2024 1:13 PM HARVEST CONTRACTOR [facility] GLUCOSE 100(H) 70 - 99 mg/dL 06/03/2024 1:13 PM HARVEST CONTRACTOR [facility] CALCIUM 9.6 8.8 - 10.4 mg/dL 06/03/2024 1:13 PM [facility] Comment: Reference ranges for this test were updated on 02/29/2024 to reflect our healthy population more accurately. Reference range changes are not retroactively applied to results, but previous results using the same methodology can be interpreted in the context of the new reference range. BUN 12 6 - 20 mg/dL 06/03/2024 1:13 PM [facility] CREATININE 0.74 0.50 - 0.90 mg/dL 06/03/2024 1:13 PM [facility] BUN/CREAT RATIO 16 10 - 20 1:13 PM [employer] [facility] eGFR >90 >90 mL/min/1.7 3m2 06/03/2024 1:13 PM [facility] Comment:As of 2021, eG FR is calculated by the CKD-EPI creatinine equation without race adjustment. eGFR can be influenced by muscle mass, exercise, and diet. The reported eGFR is an estimation only and is only applicable if the renal function is stable. Blood BLOOD SPECIMEN / Unknown IV Start / Unknown 06/03/2024 12:51 PM [employer] 06/03/2024 12:54 PM [employer] [facility] Swan MD CHEMISTRY Final Res ult [facility] [place] [address], * XR CHEST 2 VIEWS PA AND LATERAL (06/03/2024 12:34 PM HARVEST CONTRACTOR) Only the most recent of7 resultswithin the time period is included. Anatomical Region Laterality Modality CHEST, THORAX, Lung, HEART Compu frank Radiography 06/03/2024 12:3 4 PM HARVEST CONTRACTOR Impressions 06/03/2024 1:03 PM HARVEST CONTRACTOR Faintly visible nodularity mid and lower lungs correspond to pulmonary nodules on recent CT. No focal pulmonary consolidation. No pleural effusion. No pneumothorax. Heart size normal. Port anterior right chest wall with right-sided CVC low SVC. In addition, there is a left-sided port anterior left chest wall with left CVC tip also in the low SVC. Narrative 06/03/2024 1:03 PM HARVEST CONTRACTOR For Patients: As a result of the Cures Act, medical imaging exams and procedure reports are released immediately into your electronic medical record. You may view this report before your referring provider. If you have questions, please contact your health care provider. EXAM: XR CHEST 2 VIEWS PA AND LATERAL LOCATION: [facility] DATE: 06/03/2024 INDICATION: Chest pain. COMPARISON: [...] CHEST 2 VIEWS PA AND LATERAL LOCATION: [facility] DATE: 06/03/2024 INDICATION: Chest pain. COMPARISON: [...] * EKG 12 LEAD (06/03/2024 11:48 AM HARVEST CONTRACTOR) Only the most recent of10 resultswithin the [...] NOW QTc 454 ms BEYOND NOW P Woodward 54 degrees BEYOND NOW R Woodward 55 degrees BEYOND NOW T Woodward 31 degrees BEYOND NOW 06/03/2024 11:4 8 AM HARVEST CONTRACTOR 06/04/2024 3:27 AM HARVEST CONTRACTOR Narrative [facility] NOW - 06/04/2024 3:27 AM HARVEST CONTRACTOR Test Indication: chest pain [facility] Triage EKG ORD Final Result [facility] NOW [place], [place] * (ABNORMAL) HEMOGLOBIN (05/29/2024 2:23 PM HARVEST CONTRACTOR) Only the most recent of3 resultswithin the time period is included. HEMOGLOBIN 7.1(L) 12.0 - 16.0 g/dL 05/29/2024 2:32 PM HARVEST CONTRACTOR [facility] MCV 93 80 - 100 fL 05/29/2024 2:32 PM HARVEST CONTRACTOR [facility] Blood BLOOD SPECIMEN / Unknown IV Start / Unknown 05/29/2024 2:23 PM HARVEST CONTRACTOR 05/29/2024 2:30 PM HARVEST CONTRACTOR Ana Pacheco MD HEMATOLOGY Final Result Performing Organization Address City/[facility]/ZIP Co de Phone Number [facility] [address] [place] [address], * (ABNORMAL) RED CELL MORPHOLOGY (05/07/2024 6:20 PM HARVEST CONTRACTOR) Only the most recent of9 resultswithin the time period is included. POLYCHROMASIA Moderate 05/07/2024 6:33 PM HARVEST CONTRACTOR [facility] TARGET CELLS Moderate 05/07/2024 6:33 PM HARVEST CONTRACTOR [facility] RBC COMMENT Present(A) RBC morphology appears normal, RBC morphology within normal limits for newborns. 05/07/2024 6:33 PM HARVEST CONTRACTOR [facility] *SICKLE CELLS Present 05/07/2024 6:33 PM HARVEST CONTRACTOR [facility] Blood BLOOD SPECIMEN / Unknown Butterfly / Unknown 05/07/2024 6:20 PM HARVEST CONTRACTOR 05/07/2024 6:23 PM HARVEST CONTRACTOR Caryn Rasmussen MD HEMATOLOGY Final Result [facility] [address] [place] [address], [place] [phone] * PLATELET ESTIMATE (05/07/2024 6:20 PM HARVEST CONTRACTOR) Only the most recent of9 resultswithin the time period is included. PLATELET ESTIMATE Adequate Adequate, No estimate 05/07/2024 6:33 PM HARVEST CONTRACTOR [facility] Blood BLOOD SPECIMEN / Unknown Butterfly / Unknown 05/07/2024 6:20 PM HARVEST CONTRACTOR 05/07/2024 6:23 PM HARVEST CONTRACTOR Caryn Rasmussen MD HEMATOLOGY Final Result [facility] [address] [place] [address], * (ABNORMAL) CBC W PLT NO DIFF (05/07/2024 6:20 PM HARVEST CONTRACTOR) Only the most recent of5 resultswithin the time period is included. WHITE BLOOD COUNT 15.6(H) 4.5 - 11.0 thou/cu mm 05/07/2024 6:33 PM HARVEST CONTRACTOR [facility] RED BLOOD COUNT 2.71(L) 4.00 - 5.20 mil/cu mm 05/07/2024 6:33 PM HARVEST CONTRACTOR [facility] HEMOGLOBIN 8.7(L) 12.0 - 16.0 g/dL 05/07/2024 6:33 PM HARVEST CONTRACTOR [facility] HEMATOCRIT 25.4(L) 33.0 - 51.0 % 05/07/2024 6:33 PM HARVEST CONTRACTOR [facility] MCV 94 80 - 100 fL 05/07/2024 6:33 PM HARVEST CONTRACTOR [facility] MCH 32.1 26.0 - 34.0 pg 05/07/2024 6:33 PM HARVEST CONTRACTOR [facility] MCHC 34.3 32.0 - 36.0 g/dL 05/07/2024 6:33 PM HARVEST CONTRACTOR [facility] RDW 23.3(H) 11.5 - 15.5 % 05/07/2024 6:33 PM HARVEST CONTRACTOR [facility] PLATELET COUNT 356 140 - 440 thou/cu mm 05/07/2024 6:33 PM HARVEST CONTRACTOR [facility] MPV 9.8 6.5 - 11.0 fL 05/07/2024 6:33 PM HARVEST CONTRACTOR [facility] NRBC 2.0 % 05/07/2024 6:33 PM HARVEST CONTRACTOR [facility] ABS NRBC 0.3 thou /cu mm 05/07/2024 6:33 PM HARVEST CONTRACTOR [facility] Blood BLOOD SPECIMEN / Unknown Butterfly / Unknown 05/07/2024 6:20 PM HARVEST CONTRACTOR 05/07/2024 6:23 PM HARVEST CONTRACTOR Caryn Rasmussen MD HEMATOLOGY Final Result Performing Organization Address [facility] Co de Phone Number [facility] [address] [place] [address], [place] [phone] * (ABNORMAL) RETICULOCYTES (05/07/2024 6:20 PM HARVEST CONTRACTOR) Only the most recent of14 resultswithin the time period is included. RETIC% 20.3(H) 0.5 - 1.5 % 05/07/2024 6:34 PM HARVEST CONTRACTOR [facility] RETIC (ABSOLUTE) 0.55(H) 0.03 - 0.08 mil/cu mm 05/07/2024 6:34 PM HARVEST CONTRACTOR [facility] Blood BLOOD SPECIMEN / Unknown Butterfly / Unknown 05/07/2024 6:20 PM HARVEST CONTRACTOR 05/07/2024 6:23 PM HARVEST CONTRACTOR Caryn Rasmussen MD HEMATOLOGY Final Result Performing Organization Address City/[facility]/ZIP Co de Phone Number [facility] [address] [place] [address], [place] [phone] * LIPASE (05/07/2024 6:20 PM HARVEST CONTRACTOR) Only the most recent of2 resultswithin the time period is included. LIPASE 35.9 13.0 - 60.0 IU/L 05/07/2024 6:53 PM HARVEST CONTRACTOR [facility] Blood BLOOD SPECIMEN / Unknown Butterfly / Unknown 05/07/2024 6:20 PM HARVEST CONTRACTOR 05/07/2024 6:23 PM HARVEST CONTRACTOR Caryn Rasmussen MD CHEMISTRY Final Result [facility] [address] [place] [address], * (ABNORMAL) HEPATIC FUNCTION PANEL (05/07/2024 6:20 PM HARVEST CONTRACTOR) Only the most recent of2 resultswithin the time period is included. ALBUMIN 4.4 4.0 - 4.9 g/dL 05/07/2024 6:53 PM HARVEST CONTRACTOR [facility] PROTEIN,TOTAL 8.1(H) 6.0 - 8.0 g/dL 05/07/2024 6:53 PM HARVEST CONTRACTOR [facility] BILIRUBIN,TOTAL 2.2(H) 0.0 - 1.2 mg/dL 05/07/2024 6:53 PM HARVEST CONTRACTOR [facility] BILIRUBIN,DIRECT 0.9(H) 0.0 - 0.2 mg/dL 05/07/2024 6:53 PM HARVEST CONTRACTOR [facility] BILIRUBIN,INDIRE CT 1.3(H) 0.2 - 0.8 mg/dL 05/07/2024 6:53 PM HARVEST CONTRACTOR [facility] ALK PHOSPHATASE 120(H) 35 - 104 IU/L 05/07/2024 6:53 PM HARVEST CONTRACTOR [facility] ALT (SGPT) 28 10 - 35 IU/L 05/07/2024 6:53 PM HARVEST CONTRACTOR [facility] AST (SGOT) 46(H) 10 - 35 IU/L 05/07/2024 6:53 PM HARVEST CONTRACTOR [facility] Blood BLOOD SPECIMEN / Unknown Butterfly / Unknown 05/07/2024 6:20 PM HARVEST CONTRACTOR 05/07/2024 6:23 PM HARVEST CONTRACTOR Caryn Rasmussen MD CHEMISTRY Final Result [facility] [address] [place] [phone], * CT CHEST PE STUDY (05/04/2024 1:46 AM HARVEST CONTRACTOR) Anatomical Region Laterality Modality CHEST, THORAX, HEART Computed To mography 05/04/2024 1:46 AM HARVEST CONTRACTOR Impressions 05/04/2024 2:01 AM HARVEST CONTRACTOR 1. No pulmonary embolus. 2. Multiple small bilateral pulmonary nodules and mild enlargement of right hilar lymph nodes not significantly changed from the recent study of 04/06/2024. Differential diagnosis includes inflammatory/infectious and neoplastic etiologies. Narrative 05/04/2024 2:01 AM HARVEST CONTRACTOR For Patients: As a result of the Century Cures Act, medical imaging exams and procedure reports are released immediately into your electronic medical record. You may view this report before your referring provider. If you have questions, please contact your health care provider. EXAM: CT CHEST PE STUDY LOCATION: [facility] DATE: 05/04/2024 INDICATION: Pulmonary embolism (PE) [...] provider. EXAM: CT CHEST PE STUDY LOCATION: [facility] DATE: 05/04/2024 INDICATION: Pulmonary embolism (PE) [...] EXAM REFLEXED PER CRITERIA (05/04/2024 12:07 AM HARVEST CONTRACTOR) COLOR Yellow Yellow Color 05/04/2024 12:18 AM HARVEST CONTRACTOR [facility] CLARITY Clear Clear Clarity 05/04/2024 12:18 AM HARVEST CONTRACTOR [facility] SPECIFIC GRAVITY,URINE 1.015 1.010, 1.015, 1.020, 1.025 05/04/2024 12:18 AM HARVEST CONTRACTOR [facility] PH,URINE 7.0 6.0, 7.0, 8.0, 5.5, 6.5, 7.5, 8.5 05/04/2024 12:18 AM HARVEST CONTRACTOR [facility] UROBILINOGEN,Q UALITATIVE Normal Normal EU/dl 05/04/2024 12:18 AM HARVEST CONTRACTOR [facility] PROTEIN, URINE Negative Negative mg/dL 05/04/2024 12:18 AM [facility] GLUCOSE, URINE Negative Negative mg/dL 05/04/2024 12:18 AM HARVEST CONTRACTOR [facility] KETONES,URINE Negative Negative mg/dL 05/04/2024 12:18 AM HARVEST CONTRACTOR [facility] BILIRUBIN,URIN E Negative Negative 05/04/2024 12:18 AM HARVEST CONTRACTOR [facility] OCCULT BLOOD,URINE Negative Negative 05/04/2024 12:18 AM HARVEST CONTRACTOR [facility] NITRITE Negative Negative 05/04/2024 12:18 AM HARVEST CONTRACTOR [facility] LEUKOCYTE ESTERASE Negative Negative 05/04/2024 12:18 AM HARVEST CONTRACTOR [facility] Urine URINE SPECIMEN / Unknown Non-Blood / Unknown 05/04/2024 12:07 AM HARVEST CONTRACTOR 05/04/2024 12:13 AM HARVEST CONTRACTOR us Anika Mccracken MD URINE Final Resu lt [facility] [address] [place] [address], [place] [phone] * URINE (05/04/2024 12:07 AM HARVEST CONTRACTOR) ,URIN E Negative Negative 05/04/2024 12:22 AM HARVEST CONTRACTOR [facility] Urine URINE SPECIMEN / Unknown Non-Blood / Unknown 05/04/2024 12:07 AM HARVEST CONTRACTOR 05/04/2024 12:13 AM HARVEST CONTRACTOR Anika Mccracken MD URINE Final Resu lt [facility] [address] [place] [address], * CWS PATH REVIEW HEMATOLOGY (05/03/2024 11:52 PM HARVEST CONTRACTOR) PATH COMMENT Comment: 05/06/2024 7:30 AM HARVEST CONTRACTOR [facility] TRAL [facility]ORAT[facility] Comment:Frequent sickle cell s. Reviewed by Dr. Richar Huffman on 05/05/2024 Blood BLOOD SPECIMEN / Unknown IV Start / Unknown 05/03/2024 11:52 PM HARVEST CONTRACTOR 05/03/2024 11:52 PM HARVEST CONTRACTOR Anika Mccracken MD LABORATORY Final Resu lt [facility] [address] [place] [address], [place] * (ABNORMAL) MANUAL DIFFERENTIAL (05/03/2024 11:52 PM HARVEST CONTRACTOR) Only the most recent of4 resultswithin the time period is included. % NEUTROPHILS 55.0 % 05/04/2024 12:13 AM HARVEST CONTRACTOR [facility] % LYMPHOCYTES 33.0 % 05/04/2024 12:13 AM HARVEST CONTRACTOR [facility] % MONOCYTES 10.0 % 05/04/2024 12:13 AM HARVEST CONTRACTOR [facility] % EOSINOPHILS 2.0 % 05/04/2024 12:13 AM HARVEST CONTRACTOR [facility] % BASOPHILS 0.0 % 05/04/2024 12:13 AM HARVEST CONTRACTOR [facility] NEUTROPHILS ABSOLUTE 10.6(H) 1.7 - 7.0 thou/cu mm 05/04/2024 12:13 AM HARVEST CONTRACTOR [facility] LYMPHOCYTES ABSOLUTE 6.3(H) 0.9 - 2.9 thou/cu mm 05/04/2024 12:13 AM HARVEST CONTRACTOR [facility] MONOCYTES ABSOLUTE 1.9(H) <0.9 thou/cu mm 05/04/2024 12:13 AM HARVEST CONTRACTOR [facility] EOSINOPHILS ABSOLUTE 0.4 <0.5 thou/cu mm 05/04/2024 12:13 AM HARVEST CONTRACTOR [facility] BASOPHILS ABSOLUTE 0.0 <0.3 thou/cu mm 05/04/2024 12:13 AM HARVEST CONTRACTOR [facility] Blood BLOOD SPECIMEN / Unknown IV Start / Unknown 05/03/2024 11:52 PM HARVEST CONTRACTOR 05/03/2024 11:52 PM HARVEST CONTRACTOR Anika Mccracken MD HEMATOLOGY Final Resu lt [facility] [address] [place] [address], * (ABNORMAL) D-DIMER,QUANTITATIVE (05/03/2024 11:52 PM HARVEST CONTRACTOR) D-DIMER,QUANTI TATIVE 1.51(H) <=0.49 FEU mcg/mL 05/04/2024 12:28 AM HARVEST CONTRACTOR [facility] Blood BLOOD SPECIMEN / Unknown IV Start / Unknown 05/03/2024 11:52 PM HARVEST CONTRACTOR 05/03/2024 11:52 PM HARVEST CONTRACTOR Narrative [facility] - 05/04/2024 12:28 AM HARVEST CONTRACTOR The cut off value for exclusion of Deep Vein Thrombosis and / or Pulmonary Embolism is 0.50 FEU mcg/mL For patients greater than 50 years of age the upper limit is age dependent and was calculated with the formula: (PATIENT AGE x 0.01) FEU mcg/mL = Upper limit of normal range us Anika Mccracken MD HEMATOLOGY Final Resu lt [facility] [address] [place] [address], * TYPE AND SCREEN ONLY (04/20/2024 4:43 PM HARVEST CONTRACTOR) Only the most recent of2 resultswithin the time period is included. [facility] ABORH A Rh Positive 04/20/2024 5:20 PM HARVEST CONTRACTOR [facility] Comment:Comment: Performed b y [facility], [address] [place] [address] ANTIBODY SCREEN Negative Negative 04/20/2024 5:20 PM HARVEST CONTRACTOR [facility] Comment:Comment: Performed b y [facility], [address] [place] [address] SPECIMEN EXPIRATION DATE/TIME 04/23/24 23:59 04/20/2024 5:20 PM HARVEST CONTRACTOR [facility] Blood BLOOD SPECIMEN / Unknown Butterfly / Unknown 04/20/2024 4:43 PM HARVEST CONTRACTOR 04/20/2024 4:48 PM HARVEST CONTRACTOR Maria Teresa SUTTON BLOOD BANK Final Result Performing Organization Address City/[facility]/ZIP Co de Phone Number [facility] [address] [place] [address], [place] [phone] [facility] [address] [place] [address] * XR ANKLE 3 VIEWS LEFT (04/18/2024 5:09 AM HARVEST CONTRACTOR) Anatomical Region Laterality Modality ANKLES, ANKLE L Computed Radiogr aphy 04/18/2024 5:09 AM HARVEST CONTRACTOR Impressions 04/18/2024 5:11 AM HARVEST CONTRACTOR Normal joint spaces and alignment. No fracture. No significant soft tissue swelling. Ankle mortise intact. Narrative 04/18/2024 5:11 AM HARVEST CONTRACTOR For Patients: As a result of the Cures Act, medical imaging exams and procedure reports are released immediately into your electronic medical record. You may view this report before your referring provider. If you have questions, please contact your health care provider. EXAM: XR ANKLE 3 VIEWS LEFT LOCATION: [facility] DATE: 04/18/2024 INDICATION: Pain COMPARISON: None. Procedure Note Jayden Correa MD - 04/18/2024 For Patients: As a result of the s Act, medical imagingexams and procedure reports are released immediately into your electronicmedical record. You may view this report before your referring provider.If you have questions, please contact your health care provider. EXAM: XR ANKLE 3 VIEWS LEFT LOCATION: [facility] DATE: 04/18/2024 INDICATION: Pain COMPARISON: None. IMPRESSION: Normal joint spaces and alignment. No fracture. No significant soft tissueswelling. Ankle mortise intact. Elizabeth Duffy MD GENERAL IMAGING Final Res ult * C-REACTIVE PROTEIN (04/18/2024 4:59 AM HARVEST CONTRACTOR) Only the most recent of4 resultswithin the time period is included. C-REACTIVE PROTEIN <0.3 <0.5 mg/dL 04/18/2024 5:43 AM HARVEST CONTRACTOR [facility] Blood BLOOD SPECIMEN / Unknown Butterfly / Unknown 04/18/2024 4:59 AM HARVEST CONTRACTOR 04/18/2024 5:02 AM HARVEST CONTRACTOR Elizabeth Duffy MD CHEMISTRY Final Res ult [facility] [address] [place] [address], [place] [phone] * SEDIMENTATION RATE (04/18/2024 4:58 AM HARVEST CONTRACTOR) Only the most recent of3 resultswithin the time period is included. SEDIMENTATION RATE 6 <20 mm/hr 2023 5:17 AM HARVEST CONTRACTOR [facility] Blood BLOOD SPECIMEN / Unknown Butterfly / Unknown 04/18/2024 4:58 AM HARVEST CONTRACTOR 04/18/2024 5:02 AM HARVEST CONTRACTOR us Elizabeth Duffy MD HEMATOLOGY Final Res ult [facility] [address] [place] [address], [place] [phone] * XR HIP 2 OR 3 VIEWS W PELVIS LEFT (04/15/2024 6:34 PM HARVEST CONTRACTOR) Anatomical Region Laterality Modality HIPS, HIPL, Pelvis Computed Radi ography 04/15/2024 6:34 PM HARVEST CONTRACTOR Impressions 04/15/2024 6:46 PM HARVEST CONTRACTOR No acute fracture or subluxation. Sclerosis of the left femoral head in keeping with osteonecrosis. No articular surface collapse. There is additional patchy sclerosis throughout the pelvis greatest in the right iliac bone which may represent additional osteonecrosis. Hip joint spaces are grossly preserved. 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 Narrative 04/15/2024 6:46 PM HARVEST CONTRACTOR For Patients: As a result of the Cures Act, medical imaging exams and procedure reports are released immediately into your electronic medical record. You may view this report before your referring provider. If you have questions, please contact your health care provider. EXAM: XR HIP 2 OR 3 VIEWS W PELVIS LEFT LOCATION: [facility] DATE: 04/15/2024 INDICATION: left hip pain, [...] US ABDOMEN LIMITED GALLBLADDER (04/06/2024 9:38 PM HARVEST CONTRACTOR) Anatomical Region Laterality Modality Abdomen Ultrasound 04/06/2024 9:38 PM HARVEST CONTRACTOR Impressions 04/06/2024 9:46 PM HARVEST CONTRACTOR 1. Cholelithiasis. Otherwise negative. Narrative 04/06/2024 9:46 PM HARVEST CONTRACTOR For Patients: As a result of the Cures Act, medical imaging exams and procedure reports are released immediately into your electronic medical record. You may view this report before your referring provider. If you have questions, please contact your health care provider. EXAM: US ABDOMEN LIMITED GALLBLADDER LOCATION: [facility] DATE: 04/06/2024 INDICATION: Right upper quadrant [...] provider. EXAM: US ABDOMEN LIMITED GALLBLADDER LOCATION: [facility] DATE: 04/06/2024 INDICATION: Right upper quadrant [...] (ABNORMAL) COMP METABOLIC PANEL (04/06/2024 8:55 PM HARVEST CONTRACTOR) SODIUM 140 136 - 145 mmol/L 04/06/2024 9:20 PM HARVEST CONTRACTOR [facility] POTASSIUM 4.5 3.5 - 5.1 mmol/L 04/06/2024 9:20 PM HARVEST CONTRACTOR [facility] CHLORIDE 108(H) 98 - 107 mmol/L 04/06/2024 9:20 PM HARVEST CONTRACTOR [facility] CO2,TOTAL 21(L) 22 - 29 mmol/L 04/06/2024 9:20 PM HARVEST CONTRACTOR [facility] ANION GAP 11 5 - 18 04/06/2024 9:20 PM HARVEST CONTRACTOR [facility] GLUCOSE 103(H) 70 - 99 mg/dL 04/06/2024 9:20 PM HARVEST CONTRACTOR [facility] CALCIUM 9.6 8.8 - 10.4 mg/dL 04/06/2024 9:20 PM HARVEST CONTRACTOR [facility] Comment: Reference ranges for this test were updated on 02/29/2024 to reflect our healthy population more accurately. Reference range changes are not retroactively applied to results, but previous results using the same methodology can be interpreted in the context of the new reference range. BUN 8 6 - 20 mg/dL 04/06/2024 9:20 PM HARVEST CONTRACTOR [facility] CREATININE 0.78 0.50 - 0.90 mg/dL 04/06/2024 9:20 PM HARVEST CONTRACTOR [facility] BUN/CREAT RATIO 10 10 - 20 9:20 PM HARVEST CONTRACTOR [facility] eGFR >90 >90 mL/min/1.7 3m2 04/06/2024 9:20 PM HARVEST CONTRACTOR [facility] Comment:As of 2021, eG FR is calculated by the CKD-EPI creatinine equation without race adjustment. eGFR can be influenced by muscle mass, exercise, and diet. The reported eGFR is an estimation only and is only applicable if the renal function is stable. ALBUMIN 4.7 4.0 - 4.9 g/dL 04/06/2024 9:20 PM HARVEST CONTRACTOR [facility] PROTEIN,TOTAL 8.6(H) 6.0 - 8.0 g/dL 04/06/2024 9:20 PM HARVEST CONTRACTOR [facility] BILIRUBIN,TOTAL 1.6(H) 0.0 - 1.2 mg/dL 04/06/2024 9:20 PM HARVEST CONTRACTOR [facility] ALK PHOSPHATASE 124(H) 35 - 104 IU/L 04/06/2024 9:20 PM HARVEST CONTRACTOR [facility] ALT (SGPT) 36(H) 10 - 35 IU/L 04/06/2024 9:20 PM HARVEST CONTRACTOR [facility] AST (SGOT) 37(H) 10 - 35 IU/L 04/06/2024 9:20 PM [facility] Blood BLOOD SPECIMEN / Unknown Butterfly / Unknown 04/06/2024 8:55 PM HARVEST CONTRACTOR 04/06/2024 9:00 PM HARVEST CONTRACTOR Tanmay SUTTON CHEMISTRY Final R esult [facility] [address] [place] [address], [place] [phone] * TROPONIN T (HS) ACUTE W/2HR REFLEX (04/04/2024 6:54 PM HARVEST CONTRACTOR) TROPONIN T HS <6 6-10 ng/L ng/L 04/04/2024 7:31 PM HARVEST CONTRACTOR [facility] Blood BLOOD SPECIMEN / Unknown Butterfly / Unknown 04/04/2024 6:54 PM HARVEST CONTRACTOR 04/04/2024 6:57 PM HARVEST CONTRACTOR Narrative [facility] - 04/04/2024 7:31 PM HARVEST CONTRACTOR hs-cTnT (Elecsys Troponin T Gen 5) concentration [...] CHEMISTRY Final Re sult Performing Organization Address [facility] Co de Phone Number [facility] [address] [place] [address], * (ABNORMAL) PLATELET COUNT (03/30/2024 8:15 AM HARVEST CONTRACTOR) Only the most recent of2 resultswithin the time period is included. PLATELET COUNT 531(H) 140 - 440 thou/cu mm 03/30/2024 8:22 AM HARVEST CONTRACTOR [facility] MPV 9.7 6.5 - 11.0 fL 03/30/2024 8:22 AM HARVEST CONTRACTOR [facility] Blood BLOOD SPECIMEN / Unknown Venipuncture / Unknown 03/30/2024 8:15 AM HARVEST CONTRACTOR 03/30/2024 8:18 AM HARVEST CONTRACTOR Albino Loco MD HEMATOLOGY Final Resu lt Performing Organization Address [facility] Co de Phone Number [facility] [address] [place] [phone], * (ABNORMAL) WHITE BLOOD COUNT (03/30/2024 8:15 AM HARVEST CONTRACTOR) Only the most recent of2 resultswithin the time period is included. WHITE BLOOD COUNT 11.8(H) 4.5 - 11.0 thou/cu mm 03/30/2024 8:22 AM [employer] [facility] NRBC 0.3 % 03/30/2024 8:22 AM HAR[employer]ST CONTRACTOR [facility] ABS NRBC 0.0 thou /cu mm 03/30/2024 8:22 AM [employer] [facility] Blood BLOOD SPECIMEN / Unknown Venipuncture / Unknown 03/30/2024 8:15 AM HARVEST CONTRACTOR 03/30/2024 8:18 AM HAR[employer]ST CONTRACTOR Albino Loco MD HEMATOLOGY Final Resu lt [facility] [address] [place] [id number], [place] [phone] * (ABNORMAL) SODIUM (03/30/2024 8:15 AM HARVEST CONTRACTOR) SODIUM 135(L) 136 - 145 mmol/L 03/30/2024 8:39 AM HARVEST CONTRACTOR [facility] Blood BLOOD SPECIMEN / Unknown Venipuncture / Unknown 03/30/2024 8:15 AM HARVEST CONTRACTOR 03/30/2024 8:18 AM HARVEST CONTRACTOR Albino Loco MD CHEMISTRY Final Resu lt Performing Organization Address City/[facility]/ZIP Co de Phone Number [facility] [address] [place] [address], [place] [phone] * POTASSIUM (03/30/2024 8:15 AM HARVEST CONTRACTOR) POTASSIUM 4.3 3.5 - 5.1 mmol/L 03/30/2024 8:39 AM HARVEST CONTRACTOR [facility] Blood BLOOD SPECIMEN / Unknown Venipuncture / Unknown 03/30/2024 8:15 AM HARVEST CONTRACTOR 03/30/2024 8:18 AM HARVEST CONTRACTOR Albino Loco MD CHEMISTRY Final Resu lt [facility] [address] [place] [address], [place] [phone] * CREATININE (03/30/2024 8:15 AM HARVEST CONTRACTOR) eGFR >90 >90 mL/min/1.7 3m2 03/30/2024 8:39 AM HARVEST CONTRACTOR [facility] Comment:As of 2021, eG FR is calculated by the CKD-EPI creatinine equation without race adjustment. eGFR can be influenced by muscle mass, exercise, and diet. The reported eGFR is an estimation only and is only applicable if the renal function is stable. CREATININE 0.56 0.50 - 0.90 mg/dL 03/30/2024 8:39 AM HARVEST CONTRACTOR [facility] Blood BLOOD SPECIMEN / Unknown Venipuncture / Unknown 03/30/2024 8:15 AM HARVEST CONTRACTOR 03/30/2024 8:18 AM HARVEST CONTRACTOR Albino Loco MD CHEMISTRY Final Resu lt [facility] [address] [place] [address], * (ABNORMAL) BILIRUBIN,TOTAL (03/29/2024 5:44 AM HARVEST CONTRACTOR) BILIRUBIN,TOTA L 1.8(H) 0.0 - 1.2 mg/dL 03/29/2024 6:45 AM HARVEST CONTRACTOR [facility] Blood BLOOD SPECIMEN / Unknown Venipuncture / Unknown 03/29/2024 5:44 AM HARVEST CONTRACTOR 03/29/2024 6:20 AM HARVEST CONTRACTOR Casey CASIANO CHEMISTRY Liss l Result [facility] [address] [place] [address], * (ABNORMAL) Bilirubin, total/direct FOR ADD ON (03/28/2024 7:53 PM HARVEST CONTRACTOR) BILIRUBIN,TOTA L 2.4(H) 0.0 - 1.2 mg/dL 03/28/2024 9:52 PM HARVEST CONTRACTOR [facility] BILIRUBIN,DIRE CT 0.9(H) 0.0 - 0.2 mg/dL 03/28/2024 9:52 PM HARVEST CONTRACTOR [facility] BILIRUBIN,HERBERT RECT 1.5(H) 0.2 - 0.8 mg/dL 03/28/2024 9:52 PM HARVEST CONTRACTOR [facility] Blood BLOOD SPECIMEN / Unknown IV Start / Unknown 03/28/2024 7:53 PM HARVEST CONTRACTOR 03/28/2024 7:57 PM HARVEST CONTRACTOR Casey CASIANO CHEMISTRY Liss l Result [address] [address], * BLOOD CULTURE (03/28/2024 2:17 AM HARVEST CONTRACTOR) Only the most recent of2 resultswithin the time period is included. Pathologist [facility] CULTURE No Growth. 04/02/2024 9:01 AM HARVEST CONTRACTOR [facility] Blood BLOOD SPECIMEN / Unknown Venipuncture / Unknown 03/28/2024 2:17 AM HARVEST CONTRACTOR 03/28/2024 2:20 AM HARVEST CONTRACTOR Mor Ramsey MD MICROBIOLOGY Final Result [facility] [address] [place] [address], * PROCALCITONIN (03/28/2024 2:06 AM HARVEST CONTRACTOR) PROCALCITONIN 0.05 ng/ml 03/28/2024 4:15 AM [facility] Blood BLOOD SPECIMEN / Unknown Venipuncture / Unknown 03/28/2024 2:06 AM HARVEST CONTRACTOR 03/28/2024 2:20 AM HARVEST CONTRACTOR Narrative [facility] - 03/28/2024 4:15 AM HARVEST CONTRACTOR Procalcitonin for initial assessment of Lower Respiratory [...] Mor Ramsey MD SEND OUTS Final Result [facility] [address] [facility] [place] [address], [place] [phone] from Last 3 Months Insurance [facility] [place] [id number] [facility] Advance Directives * Full Code (Latest Code Status on File) Date Activated Date Inactivated Comments 03/28/2024 10:36 PM 03/30/2024 11:39 AM Question Answer Comments Code Status Discussion: Reviewed Preferences * Full Code Date Activated Date Inactivated Comments 03/16/2024 1:29 AM 03/18/2024 1:58 PM Question Answer Comments Code Status Discussion: Reviewed Preferences Care Teams Analysis Manager Relationship Specialty Start Date End Date Veronica Joseph MD [address] [place] [address] PCP - General Family Practice 03/29/24
--- OUTSIDE RECORDS SUMMARY | 2024-06-25 16:13 | XMS_ITS | Encounter Summary ---
Author Organization [place] Address [address] [place] [address]. [place] [address] Care Team Providers Care Clinic Clerk Name Role Phone No Ref-Primary, Physician Primary Care Provider Mor Ramsey Unavailable Unavailable Reason for Visit * Reason Comments Sickle Cell Pain Crisis Encounter Details Date Type Department Care Team (Late st Contact Info) Description 05/14/2024 10:07 PM MILITARY COMMUNICATIONS SPECIALIST - 05/15/2024 12:14 AM [facility] Emergency [facility] Emergency Room [facility] [place] [phone] Marguerite Ponce PA-C [facility] [address] [place] [address] Sickle cell pain crisis (H) Discharge Disposition: [...] on file Legal Sex Female 8:25 AM MILITARY COMMUNICATIONS SPECIALIST Gender Identity Not on file Sexual Orientation Not on file documented as of this encounter Last Filed Vital Signs Vital Sign Reading Time Taken Comments Blood Pressure 113/64 05/15/2024 12:03 AM MILITARY COMMUNICATIONS SPECIALIST Pulse 97 05/15/2024 12:11 AM MILITARY COMMUNICATIONS SPECIALIST Temperature 36.7 C (98 F) 05/14/2024 9:33 PM MILITARY COMMUNICATIONS SPECIALIST Respiratory Rate 16 05/14/2024 9:33 PM MILITARY COMMUNICATIONS SPECIALIST Oxygen Saturation 94% 05/15/2024 12:11 AM MILITARY COMMUNICATIONS SPECIALIST Inhaled Oxygen Concentration - - Weight 52.2 kg (115 lb) 05/14/2024 9:33 PM MILITARY COMMUNICATIONS SPECIALIST Height 154.9 cm (5' 1) 05/14/2024 9:33 PM MILITARY COMMUNICATIONS SPECIALIST Body Mass Index 21.73 05/14/2024 9:33 PM MILITARY COMMUNICATIONS SPECIALIST documented in this encounter Discharge Instructions * Discharge Instructions* Marguerite Ponce PA-C - 05/15/2024 12:02 AM MILITARY COMMUNICATIONS SPECIALIST You were seen in the ER [...] clinic for management of your sickle cell. TARY COMMUNICATIONS SPECIALIST documented in this encounter Medications at [...] questions were answered. Vitally stable upon discharge. TARY COMMUNICATIONS SPECIALIST * Ana Leon RN - 05/14/2024 9:35 PM CST Reports sickle cell crisis and hurts all over Seen here yesterday for same symptoms Triage Assessment (Adult) Row Name 05/14/241 Triage Assessment Airway WDL WDL Respiratory WDL Respiratory WDL WDL Skin Circulation/Temperature WDL Skin Circulation/Temperature WDL WDL Cardiac WDL Cardiac WDL WDL Peripheral/Neurovascular WDL Peripheral Neurovascular WDL WDL Cognitive/Neuro/Behavioral WDL Cognitive/Neuro/Behavioral WDL WDL TARY COMMUNICATIONS SPECIALIST * Marguerite Ponce PA-C - 05/14/2024 [...] other provider:Did you involve another provider (medical cost consultant, , pharmacy, etc.)?: No Discharge. No [...] 1,000 mL (0 mLs Intravenous Stopped 05/14/24 1849) HYDROmorphone (DILAUDID) injection 2 mg (2 mg [...] of 15:38 Rate: 97 BPM Rhythm: sinus [place]: 19 81 58 DE Interval: 142 ms QRS Interval: 80 ms [...] my direction. Marguerite Ponce PA-C Emergency Medicine [facility] EMERGENCY ROOM Marguerite Ponce PA-C 05/15/24 0004 TARY COMMUNICATIONS SPECIALIST documented in this encounter Plan of Treatment Not on file documented as of this encounter Goals Goal Patient Goal Type Associated Problems Recent Progress Patient-Stated? Author Pain Management General On track( 025 12:40 PM MILITARY COMMUNICATIONS SPECIALIST) Yes Juhi Benson, SOFIA Note: Goal [...] MANUAL DIFFERENTIAL STAT 05/14/2024 1 0:24 PM MILITARY COMMUNICATIONS SPECIALIST CBC WITH PLATELETS AND DIFFERENTIAL STAT 05/14/2024 10:24 PM MILITARY COMMUNICATIONS SPECIALIST TROPONIN T, HIGH SENSITIVITY STAT 05/14/2024 10:24 PM MILITARY COMMUNICATIONS SPECIALIST CBC WITH PLATELETS & DIFFERENTIAL STAT 05/14/2024 10:24 PM MILITARY COMMUNICATIONS SPECIALIST RETICULOCYTE COUNT STAT 05/14/2024 10 :24 PM MILITARY COMMUNICATIONS SPECIALIST HEPATIC FUNCTION PANEL STAT 05/14/2024 10:24 PM MILITARY COMMUNICATIONS SPECIALIST HCG QUALITATIVE STAT 05/14/2024 10:24 PM MILITARY COMMUNICATIONS SPECIALIST BASIC METABOLIC PANEL STAT 05/14/2024 10:24 PM MILITARY COMMUNICATIONS SPECIALIST ECG 12-LEAD WITH MUSE SJN,SJO,WWH STAT 05/14/2024 10:12 PM MILITARY COMMUNICATIONS SPECIALIST documented in this encounter Results * (ABNORMAL) Manual Differential (05/14/2024 10:24 PM MILITARY COMMUNICATIONS SPECIALIST) % Neutrophils 63 % JARET 05/14/2024 10:58 PM MILITARY COMMUNICATIONS SPECIALIST [facility] % Lymphocytes 29 % JARET 05/14/2024 10:58 PM MILITARY COMMUNICATIONS SPECIALIST [facility] % Monocytes 8 % JARET 05/14/2024 10:58 PM MILITARY COMMUNICATIONS SPECIALIST [facility] % Eosinophils 0 % JARET 05/14/2024 10:58 PM MILITARY COMMUNICATIONS SPECIALIST [facility] % Basophils 0 % JARET 05/14/2024 10:58 PM MILITARY COMMUNICATIONS SPECIALIST [facility] Absolute Neutrophils 11.3(H) 1.6 - 8.3 10e3/uL JARET 05/14/2024 10:58 PM [facility] Absolute Lymphocytes 5.2 0.8 - 5.3 10e3/uL JARET 05/14/2024 10:58 PM [facility] Absolute Monocytes 1.4(H) 0.0 - 1.3 10e3/uL JARET 05/14/2024 10:58 PM [facility] Absolute Eosinophils 0.0 0.0 - 0.7 10e3/uL JARET 05/14/2024 10:58 PM [facility] Absolute Basophils 0.0 0.0 - 0.2 10e3/uL JARET 05/14/2024 10:58 PM [facility] NRBCs per 100 WBC 1 % JARET 05/14/2024 10:58 PM [facility] Absolute NRBCs 0.2 10e3/uL JARET 05/14/2024 10:58 PM [facility] RBC Morphology Confirmed RBC Indices JARET 05/14/2024 10:58 PM [facility] Platelet Assessment Automated Count Confirmed. Platelet morphology is normal. Automated Count Confirmed. Platelet morphology is normal. JARET 05/14/2024 10:58 PM [facility] Acanthocytes Slight(A) None Seen JARET 05/14/2024 10:58 PM [facility] Elliptocytes Slight(A) None Seen JARET 05/14/2024 10:58 PM [facility] Polychromasia Slight(A) None Seen JARET 05/14/2024 10:58 PM [facility] Sickle Cells Moderate(A) None Seen [facility] 05/14/2024 10:58 PM [facility] Target Cells Slight(A) None Seen [facility] 05/14/2024 10:58 PM [facility] Blood BLOOD SPECIMEN / Unknown Venipuncture / Unknown 05/14/2024 10:24 PM [facility] 05/14/2024 10:30 PM [facility] us Marguerite Ponce PA-C LAB - BLOOD ORDERABLES Final R esult [facility] [address] [place] [address], [facility] * (ABNORMAL) CBC with platelets and differential (05/14/2024 10:24 PM MILITARY COMMUNICATIONS SPECIALIST) WBC Count 17.9(H) 4.0 - 11.0 10e3/uL 05/14/2024 10:58 PM MILITARY COMMUNICATIONS SPECIALIST [facility] RBC Count 2.32(L) 3.80 - 5.20 10e6/uL 05/14/2024 10:58 PM [facility] Hemoglobin 7.6(L) 11.7 - 15.7 g/dL 05/14/2024 10:58 PM [facility] Hematocrit 21.4(L) 35.0 - 47.0 % 05/14/2024 10:58 PM [facility] MCV 92 78 - 100 fL 05/14/2024 10:58 PM [facility] MCH 32.8 26.5 - 33.0 pg 05/14/2024 10:58 PM [facility] MCHC 35.5 31.5 - 36.5 g/dL 05/14/2024 10:58 PM [facility] RDW 24.7(H) 10.0 - 15.0 % 05/14/2024 10:58 PM [facility] Platelet Count 487(H) 150 - 450 10e3/uL 05/14/2024 10:58 PM [facility] Blood BLOOD SPECIMEN / Unknown Venipuncture / Unknown 05/14/2024 10:24 PM MILITARY COMMUNICATIONS SPECIALIST 05/14/2024 10:30 PM MILITARY COMMUNICATIONS SPECIALIST us Marguerite Ponce PA-C LAB - BLOOD ORDERABLES Final R esult [facility] [address] [place] [address], [facility] * HCG QUALitative (blood) (05/14/2024 10:24 PM MILITARY COMMUNICATIONS SPECIALIST) Pathologist [facility] hCG Serum Qualitative Negative Negative JARET 05/14/2024 10:54 PM MILITARY COMMUNICATIONS SPECIALIST [facility] Comment:This test is for scr eening purposes. Results should be interpreted along with the clinical picture. Confirmation testing is available if warranted by ordering [id number], HCG Quantitative . Blood BLOOD SPECIMEN / Unknown Venipuncture / Unknown 05/14/2024 10:24 PM MILITARY COMMUNICATIONS SPECIALIST 05/14/2024 10:30 PM MILITARY COMMUNICATIONS SPECIALIST Marguerite Ponce PA-C LAB - BLOOD ORDERABLES Final R esult Performing Organization Address [facility] [[email or web address]] Co de Phone Number [facility] [address] [place] [address] [place] [address], [facility] * Troponin T, High Sensitivity (05/14/2024 10:24 PM MILITARY COMMUNICATIONS SPECIALIST) Pathologist [facility] Troponin T, High Sensitivity <6 <=14 ng/L 05/14/2024 10:53 PM MILITARY COMMUNICATIONS SPECIALIST [facility] Comment: Either a High [...] Unknown Venipuncture / Unknown 05/14/2024 10:24 PM MILITARY COMMUNICATIONS SPECIALIST 05/14/2024 10:30 PM MILITARY COMMUNICATIONS SPECIALIST Marguerite Ponce PA-C LAB - BLOOD ORDERABLES Final R esult Performing Organization Address [facility] [[email or web address]] Co de Phone Number [facility] [address] [place] [address] [place] [address], [place] * (ABNORMAL) Reticulocyte count (05/14/2024 10:24 PM MILITARY COMMUNICATIONS SPECIALIST) % Reticulocyte 27.5(H) 0.5 - 2.0 % 05/14/2024 10:33 PM MILITARY COMMUNICATIONS SPECIALIST [facility] Absolute Reticulocyte 0.639(H) 0.025 - 0.095 10e6/uL 05/14/2024 10:33 PM MILITARY COMMUNICATIONS SPECIALIST [facility] Blood BLOOD SPECIMEN / Unknown Venipuncture / Unknown 05/14/2024 10:24 PM MILITARY COMMUNICATIONS SPECIALIST 05/14/2024 10:30 PM MILITARY COMMUNICATIONS SPECIALIST Marguerite Ponce PA-C LAB - BLOOD ORDERABLES Final R esult Performing Organization Address City/[facility]/ZIP Co de Phone Number [facility] [address] [place] [address] [address] [place], [place] [address], [facility] * (ABNORMAL) Hepatic function panel (05/14/2024 10:24 PM MILITARY COMMUNICATIONS SPECIALIST) Protein Total 7.9 6.4 - 8.3 g/dL 05/14/2024 10:53 PM [facility] Albumin 4.4 3.5 - 5.2 g/dL 05/14/2024 10:53 PM [facility] Bilirubin Total 2.8(H) <=1.2 mg/dL 05/14/2024 10:53 PM [facility] Alkaline Phosphatase 120 40 - 150 U/L 05/14/2024 10:53 PM [facility] AST 67(H) 0 - 45 U/L 05/14/2024 10:53 PM [facility] ALT 51(H) 0 - 50 U/L 05/14/2024 10:53 PM [facility] Bilirubin Direct 0.70(H) 0.00 - 0.30 mg/dL 05/14/2024 10:53 PM [facility] Blood BLOOD SPECIMEN / Unknown Venipuncture / Unknown 05/14/2024 10:24 PM MILITARY COMMUNICATIONS SPECIALIST 05/14/2024 10:30 PM MILITARY COMMUNICATIONS SPECIALIST us Marguerite Ponce PA-C LAB - BLOOD ORDERABLES Final R esult Performing Organization Address City/[facility]/ZIP Co de Phone Number [address] [place] [address], [facility] * Basic metabolic panel (05/14/2024 10:24 PM MILITARY COMMUNICATIONS SPECIALIST) Sodium 136 135 - 145 mmol/L 05/14/2024 10:53 PM [facility] Potassium 4.4 3.4 - 5.3 mmol/L 05/14/2024 10:53 PM [facility] Chloride 104 98 - 107 mmol/L 05/14/2024 10:53 PM [facility] Carbon Dioxide (CO2) 22 22 - 29 mmol/L 05/14/2024 10:53 PM [facility] Anion Gap 10 7 - 15 mmol/L 05/14/2024 10:53 PM [facility] Urea Nitrogen 10.5 6.0 - 20.0 mg/dL 05/14/2024 10:53 PM [facility] Creatinine 0.78 0.51 - 0.95 mg/dL 05/14/2024 10:53 PM [facility] GFR Estimate >90 >60 mL/min/1.7 3m2 05/14/2024 10:53 PM [facility] Comment:eGFR calculated usin 2020 CKD-EPI equation. Calcium 9.0 8.8 - 10.4 mg/dL 05/14/2024 10:53 PM [facility] Comment:Reference intervals for this test were updated on 11/09/2023 to reflect our healthy population more accurately. There may be differences in the flagging of prior results with similar values performed with this method. Those prior results can be interpreted in the context of the updated reference intervals. Glucose 88 70 - 99 mg/dL 05/14/2024 10:53 PM [facility] Blood BLOOD SPECIMEN / Unknown Venipuncture / Unknown 05/14/2024 10:24 PM MILITARY COMMUNICATIONS SPECIALIST 05/14/2024 10:30 PM [facility] us Marguerite Ponce PA-C LAB - BLOOD ORDERABLES Final R esult [facility] [address] [place] [address], [facility] * ECG 12-LEAD WITH MUSE (LHE) (05/14/2024 10:12 PM [facility]) Systolic Blood Pressure mmHg RADIOLOGY RESULTS Diastolic Blood Pressure mmHg RADIOLOGY RESULTS Ventricular Rate 97 BPM RAD IOLOGY RESULTS Atrial Rate 97 BPM RADIOLOG Y RESULTS DE Interval 142 ms RADIOLOG Y RESULTS QRS Duration 80 ms RADIOLO GY RESULTS QT 346 ms RADIOLOGY RESULTS QTc 439 ms RADIOLOGY RESULTS P [place] 19 degrees RADIOLOGY RESULTS R AXIS 81 degrees RADIOLOGY RESULTS T [place] 58 degrees RADIOLOGY RESULTS Interpretation ECG Sinus rhythm Nonspecific T wave abnormality Abnormal ECG When compared with ECG of 13-May-2024 15:38, No significant change was found Confirmed by SEE ED PROVIDER NOTE FOR, ECG INTERPRETATION (4000), city editor SELMA GARRISON ([id number]) on 05/14/2024 11:09:33 PM RADIOLOGY RESULTS 05/14/2024 10:1 2 PM MILITARY COMMUNICATIONS SPECIALIST 05/14/2024 11:09 PM MILITARY COMMUNICATIONS SPECIALIST us Marguerite Ponce PA-C ECG ORDERABLES [...] For 1 dose $Given 05/14/2024 10:45 PM MILITARY COMMUNICATIONS SPECIALIST 25 mg HYDROmorphone (DILAUDID) injection 2 mg 2 mg, Intravenous, ONCE, On 05/14/24 at 2200, For 1 dose $Given 05/14/2024 10:29 PM MILITARY COMMUNICATIONS SPECIALIST 2 mg HYDROmorphone (DILAUDID) injection 2 mg 2 mg, Intravenous, ONCE, On 05/14/24 at 2330, For 1 dose $Given 05/14/2024 11:27 PM MILITARY COMMUNICATIONS SPECIALIST 2 mg lactated ringers BOLUS 1,000 mL Intravenous, 1,000 mL, ONCE, On 05/14/24 at 2200, For 1 dose $New Bag 05/14/2024 10:29 PM MILITARY COMMUNICATIONS SPECIALIST 1,000 mLs documented in this encounter Active and Recently Administered Medications Times are shown in MILITARY COMMUNICATIONS SPECIALIST. Scheduled Medication Order 05/13/2024 05/14/2024 05/15/2024 [...] RN) documented in this encounter Care Teams Clinic Clerk Relationship Specialty Start Date End Date No Ref-Primary, Physician PCP - General 03/15/24 06/17/24 Mor Ramsey Medical Student 04/03/24 documented as of this encounter
--- OUTSIDE RECORDS SUMMARY | 2024-06-25 16:14 | XMS_ITS | Encounter Summary ---
Author Organization [place] Address [address] [place] [address] Care Team Providers Care Halftone Operator Name Role Phone No Ref-Primary, Physician Primary Care Provider Mor Ramsey Unavailable Unavailable Case Samuel MD Unavailable [phone] Reason for Visit * Reason Onset Date Comments Refill Request 05/22/2024 Encounter Details Date Type Department Care Team ([facility] st Contact Info) Description 05/22/2024 MyC Refill [facility] [address] [place] [address] Case Samuel MD [address] [place] [address], [address] [place] [address] Refill Request Social History Tobacco [...] on file Legal Sex Female 8:25 AM PROP SETTER Gender Identity Not on file Sexual Orientation [...] and by whom: Dr. Samuel on 05/01/2024 [facility] Reviewed: Yes Send to provider: Dr. Samuel and ESTEVAN Reynaga . SETTER documented in this encounter Plan of Treatment Not on file documented as of this encounter Goals Goal Patient Goal Type Associated Problems Recent Progress Patient-Stated? Author Pain Management General On track( 025 12:40 PM PROP SETTER) Yes Juhi Benson, SOFIA Note: Goal Statement: [...] crisis documented in this encounter Care Teams Halftone Operator Relationship Specialty Start Date End Date No Ref-Primary, Physician PCP - General 03/15/24 06/17/24 Mor Ramsey Medical Student 04/03/24 Case Samuel MD [address] [place] [address], [address] [place], [place] [address] Assigned Pediatric Specialist Provider 05/18/24 documented as of this encounter
--- OUTSIDE RECORDS SUMMARY | 2024-06-25 16:14 | XMS_ITS | Encounter Summary ---
Author Organization [facility] Address [address] [place] [id number] Care Team Providers Care Child Psychology Teacher Name Role Phone No Ref-Primary, Physician Primary Care Provider Mor Ramsey Unavailable Unavailable Case Samuel MD Unavailable [phone] Reason for Visit * Reason Comments Sickle Cell Pain Crisis Encounter Details Date Type Department Care Team (Late st Contact Info) Description 05/19/2024 2:10 AM CREDIT CONTROLLER - 05/19/2024 6:06 AM [facility] Emergency [facility] Emergency Room [facility] [place] [address] Marilia Summers MD [address] [place] [address] [phone] Sickle cell disease with crisis (H) Discharge [...] on file Legal Sex Female 8:25 AM CREDIT CONTROLLER Gender Identity Not on file Sexual Orientation Not on file documented as of this encounter Last Filed Vital Signs Vital Sign Reading Time Taken Comments Blood Pressure 110/60 05/19/2024 5:30 AM CREDIT CONTROLLER Pulse 89 05/19/2024 5:30 AM CREDIT CONTROLLER Temperature 36.9 C (98.4 F) 05/19/2024 2:16 AM CREDIT CONTROLLER Respiratory Rate 16 05/19/2024 2:16 AM CREDIT CONTROLLER Oxygen Saturation 95% 05/19/2024 5:30 AM CREDIT CONTROLLER Inhaled Oxygen Concentration - - Weight 51.7 kg (114 lb) 05/19/2024 2:16 AM CREDIT CONTROLLER Height 160 cm (5' 3) 05/19/2024 2:16 AM CREDIT CONTROLLER Body Mass Index 20.19 05/19/2024 2:16 AM CREDIT CONTROLLER documented in this encounter Discharge Instructions * Discharge Instructions* Marilia Summers MD - 05/19/2024 6:02 AM CREDIT CONTROLLER Keep your hematology appointment for the third. Talk with your oncologist about your pain control and what you should do about it while you wait for that appointment. Also you are still a bit more anemic than your search engineer would like. IT CONTROLLER * Attachments The following attachments cannot be sent through Care Everywhere. * Sickle Cell Crisis (Trinid[place]) documented in this encounter Medications at Time [...] sleep. Took 4mg dilaudid po 3 hours MANAGER FRENCH. C/o 10 generalized back pain Triage Assessment [...] Docusate, Senna PRN [id number] I reviewed the [facility] database for prescriptions. Her last [...] still a bit more anemic than her search engineer would like and so I encouraged [...] history is provided by the patient. No educational speech language clinician was used. Gianna Hernández is [...] hCG Serum Qualitative Negative Negative Narrative Lot#: [id number] Exp: 2025-09-28 CBC with platelets and differential [...] Status --------- ------ CBC with platelets and d...[[id number]] Abnormal Final result Manual Differential[[id number]] Abnormal Final result Please view results for these tests on the individual orders. [facility] Documentation Medical Decision Making Obtained [...] with other provider:Did you involve another provider (strategic sourcing consultant, , pharmacy, etc.)?: I discussed the [...] my direction. Marilia Summers MD Emergency Medicine [facility] EMERGENCY ROOM Marilia Summers MD 05/19/24 0607 IT CONTROLLER * Moy Stewart RN - 05/19/2024 2:18 AM CST To ED per POV C/o being in sickle cell crisis which awoke her from sleep. Took 4mg dilaudid po 3 hours MANAGER FRENCH. C/o 9/10 generalized back pain Triage Assessment (Adult) Row Name 05/19/24 0217 Triage Assessment Airway WDL WDL Respiratory WDL Respiratory WDL WDL Skin Circulation/Temperature WDL Skin Circulation/Temperature WDL WDL Cardiac WDL Cardiac WDL rhythm Pulse Rate & Regularity tachycardic Peripheral/Neurovascular WDL Peripheral Neurovascular WDL WDL Cognitive/Neuro/Behavioral WDL Cognitive/Neuro/Behavioral WDL WDL IT CONTROLLER documented in this encounter Plan of Treatment Not on file documented as of this encounter Goals Goal Patient Goal Type Associated Problems Recent Progress Patient-Stated? Author Pain Management General On track( 025 12:40 PM CREDIT CONTROLLER) Yes Juhi Benson, RN Note: Goal Statement: [...] MANUAL DIFFERENTIAL STAT 05/19/2024 3 :05 AM CREDIT CONTROLLER CBC WITH PLATELETS AND DIFFERENTIAL STAT 05/19/2024 3:05 AM CREDIT CONTROLLER CBC WITH PLATELETS & DIFFERENTIAL STAT 05/19/2024 3:05 AM CREDIT CONTROLLER RETICULOCYTE COUNT STAT 05/19/2024 3: 05 AM CREDIT CONTROLLER HEPATIC FUNCTION PANEL STAT 05/19/2024 3:05 AM CREDIT CONTROLLER HCG QUALITATIVE STAT 05/19/2024 3:05 AM CREDIT CONTROLLER CK TOTAL STAT 05/19/2024 3:05 AM CREDIT CONTROLLER BASIC METABOLIC PANEL STAT 05/19/2024 3:05 AM CREDIT CONTROLLER documented in this encounter Results * (ABNORMAL) Manual Differential (05/19/2024 3:05 AM [facility]) Pathologist [facility] Emergency [facility] % Neutrophils 66 % JARET 05/19/2024 4:12 AM [facility] % Lymphocytes 19 % JARET 05/19/2024 4:12 AM [facility] % Monocytes 11 % JARET 05/19/2024 4:12 AM [facility] % Eosinophils 2 % JARET 05/19/2024 4:12 AM [facility] % Basophils 2 % JARET 05/19/2024 4:12 AM [facility] Absolute Neutrophils 9.6(H) 1.6 - 8.3 10e3/uL JARET 05/19/2024 4:12 AM [facility] Absolute Lymphocytes 2.8 0.8 - 5.3 10e3/uL JARET 05/19/2024 4:12 AM [facility] Absolute Monocytes 1.6(H) 0.0 - 1.3 10e3/uL JARET 05/19/2024 4:12 AM [facility] Absolute Eosinophils 0.3 0.0 - 0.7 10e3/uL JARET 05/19/2024 4:12 AM [facility] Absolute Basophils 0.3(H) 0.0 - 0.2 10e3/uL JARET 05/19/2024 4:12 AM [facility] RBC Morphology Confirmed RBC Indices JARET 05/19/2024 4:12 AM [facility] Platelet Assessment Automated Count Confirmed. Platelet morphology is normal. Automated Count Confirmed. Platelet morphology is normal. JARET 05/19/2024 4:12 AM [facility] Elliptocytes Slight(A) None Seen JARET 05/19/2024 4:12 AM [facility] RBC Fragments Rare(A) None Seen JARET 05/19/2024 4:12 AM [facility] Polychromasia Slight(A) None Seen JARET 05/19/2024 4:12 AM [facility] Sickle Cells Slight(A) None Seen JARET 05/19/2024 4:12 AM [facility] Target Cells Slight(A) None Seen JARET 05/19/2024 4:12 AM [facility] Blood VENOUS LINE / Unknown Venipuncture / Unknown 05/19/2024 3:05 AM [facility] 05/19/2024 3:18 AM CREDIT CONTROLLER us Marilia Summers MD LAB - BLOOD ORDERABLES Final Result [facility] [address] [place] [address], [facility] * (ABNORMAL) CBC with platelets and differential (05/19/2024 3:05 AM CREDIT CONTROLLER) [facility] WBC Count 14.5(H) 4.0 - 11.0 10e3/uL 05/19/2024 4:12 AM [facility] RBC Count 2.45(L) 3.80 - 5.20 10e6/uL 05/19/2024 4:12 AM [facility] Hemoglobin 7.7(L) 11.7 - 15.7 g/dL 05/19/2024 4:12 AM [facility] Hematocrit 22.7(L) 35.0 - 47.0 % 05/19/2024 4:12 AM [facility] MCV 93 78 - 100 fL 05/19/2024 4:12 AM [facility] MCH 31.4 26.5 - 33.0 pg 05/19/2024 4:12 AM [facility] MCHC 33.9 31.5 - 36.5 g/dL 05/19/2024 4:12 AM [facility] RDW 23.0(H) 10.0 - 15.0 % 05/19/2024 4:12 AM [facility] Platelet Count 518(H) 150 - 450 10e3/uL 05/19/2024 4:12 AM [facility] Blood VENOUS LINE / Unknown Venipuncture / Unknown 05/19/2024 3:05 AM CREDIT CONTROLLER 05/19/2024 3:18 AM CREDIT CONTROLLER us Marilia Summers MD LAB - BLOOD ORDERABLES Final Result [facility] [address] [place] [address], [facility] * HCG QUALitative (blood) (05/19/2024 3:05 AM CREDIT CONTROLLER) [facility] hCG Serum Qualitative Negative Negative JARET 05/19/2024 3:29 AM [facility] Comment:This test is for scr eening purposes. Results should be interpreted along with the clinical picture. Confirmation testing is available if warranted by ordering [id number], HCG Quantitative . Blood VENOUS LINE / Unknown Venipuncture / Unknown 05/19/2024 3:05 AM CREDIT CONTROLLER 05/19/2024 3:18 AM CREDIT CONTROLLER Narrative [facility] - 05/19/2024 3:29 AM [facility] Lot#: [id number] Exp: 2025-09-28 Marilia Summers MD LAB - BLOOD ORDERABLES Final Result Performing Organization Address City/[facility]/ZIP Co de Phone Number [facility] [address] [place] [address] * (ABNORMAL) CK total (05/19/2024 3:05 AM CREDIT CONTROLLER) [facility] CK 240(H) 26 - 192 U/L 05/19/2024 3:37 AM [facility] Blood VENOUS LINE / Unknown Venipuncture / Unknown 05/19/2024 3:05 AM CREDIT CONTROLLER 05/19/2024 3:18 AM CREDIT CONTROLLER Marilia Summers MD LAB - BLOOD ORDERABLES Final Result Performing Organization Address City/[facility]/ZIP Co de Phone Number [facility] [address] [place] [address] * (ABNORMAL) Hepatic function panel (05/19/2024 3:05 AM CREDIT CONTROLLER) [facility] Protein Total 7.9 6.4 - 8.3 g/dL 05/19/2024 3:37 AM [facility] Albumin 4.3 3.5 - 5.2 g/dL 05/19/2024 3:37 AM [facility] Bilirubin Total 2.6(H) <=1.2 mg/dL 05/19/2024 3:37 AM [facility] Alkaline Phosphatase 128 40 - 150 U/L 05/19/2024 3:37 AM [facility] AST 67(H) 0 - 45 U/L 05/19/2024 3:37 AM [facility] ALT 39 0 - 50 U/L 05/19/2024 3:37 AM [facility] Bilirubin Direct 0.65(H) 0.00 - 0.30 mg/dL 05/19/2024 3:37 AM [facility] Blood VENOUS LINE / Unknown Venipuncture / Unknown 05/19/2024 3:05 AM [facility] 05/19/2024 3:18 AM [facility] us Marilia Summers MD LAB - BLOOD ORDERABLES Final Result [facility] [address] [address], [facility] * (ABNORMAL) Basic metabolic panel (05/19/2024 3:05 AM [facility]) Sodium 137 135 - 145 mmol/L 05/19/2024 3:37 AM [facility] Potassium 4.2 3.4 - 5.3 mmol/L 05/19/2024 3:37 AM [facility] Chloride 107 98 - 107 mmol/L 05/19/2024 3:37 AM [facility] Carbon Dioxide (CO2) 20(L) 22 - 29 mmol/L 05/19/2024 3:37 AM [facility] Anion Gap 10 7 - 15 mmol/L 05/19/2024 3:37 AM [facility] Urea Nitrogen 11.2 6.0 - 20.0 mg/dL 05/19/2024 3:37 AM [facility] Creatinine 0.81 0.51 - 0.95 mg/dL 05/19/2024 3:37 AM [facility] GFR Estimate >90 >60 mL/min/1.7 3m2 05/19/2024 3:37 AM [facility] Comment:eGFR calculated usin 2020 CKD-EPI equation. Calcium 9.1 8.8 - 10.4 mg/dL 05/19/2024 3:37 AM [facility] Comment:Reference intervals for this test were updated on 11/09/2023 to reflect our healthy population more accurately. There may be differences in the flagging of prior results with similar values performed with this method. Those prior results can be interpreted in the context of the updated reference intervals. Glucose 99 70 - 99 mg/dL 05/19/2024 3:37 AM [facility] Blood VENOUS LINE / Unknown Venipuncture / Unknown 05/19/2024 3:05 AM CREDIT CONTROLLER 05/19/2024 3:18 AM CREDIT CONTROLLER Marilia Summers MD LAB - BLOOD ORDERABLES Final Result Performing Organization Address [facility] de Phone Number [facility] [address] [place] [address] PROSPER Munoz [address], [facility] * (ABNORMAL) Reticulocyte count (05/19/2024 3:05 AM CREDIT CONTROLLER) [facility] % Reticulocyte 23.3(H) 0.5 - 2.0 % 05/19/2024 3:47 AM [facility] Absolute Reticulocyte 0.550(H) 0.025 - 0.095 10e6/uL 05/19/2024 3:47 AM [facility] Blood VENOUS LINE / Unknown Venipuncture / Unknown 05/19/2024 3:05 AM CREDIT CONTROLLER 05/19/2024 3:18 AM CREDIT CONTROLLER Marilia Summers MD LAB - BLOOD ORDERABLES Final Result Performing Organization Address [facility] de Phone Number [facility] [address] [place] [address] PROSPER Munoz [facility], [facility] documented in this encounter Visit [...] For 1 dose $Given 05/19/2024 3:10 AM CREDIT CONTROLLER 25 mg diphenhydrAMINE (BENADRYL) injection 25 mg 25 mg, Intravenous, ONCE, On Wed05/19/24 at 0530, For 1 dose $Given 05/19/2024 5:17 AM CREDIT CONTROLLER 25 mg HYDROmorphone (DILAUDID) injection 2 mg 2 mg, Intravenous, EVERY 1 HOUR PRN, moderate pain, Starting on Wed05/19/24 at 0241, For 3 doses $Given 05/19/2024 5:30 AM CREDIT CONTROLLER 2 mg $Given 05/19/2024 4:19 AM CREDIT CONTROLLER 2 mg $Given 05/19/2024 3:10 AM CREDIT CONTROLLER 2 mg lactated ringers BOLUS 1,000 mL Intravenous, 1,000 mL, ONCE, at 500 mL/hr, Administer over 2 Hours, On Wed05/19/24 at 0300, For 1 dose Rate/Dose Verify 05/19/2024 4:24 AM CREDIT CONTROLLER 500 mL/hr $New Bag 05/19/2024 3:15 AM CREDIT CONTROLLER 1,000 mLs 500 mL/hr ondansetron (ZOFRAN) injection 8 mg 8 mg, Intravenous, ONCE, Administer over 2-5 Minutes, On Wed05/19/24 at 0530, For 1 dose $Given 05/19/2024 5:17 AM CREDIT CONTROLLER 8 mg documented in this encounter Active and Recently Administered Medications Times are shown in CREDIT CONTROLLER. Scheduled Medication Order 05/17/2024 05/18/2024 05/19/2024 diphenhydrAMINE [...] RN) documented in this encounter Care Teams Child Psychology Teacher Relationship Specialty Start Date End Date No Ref-Primary, Physician PCP - General 03/15/24 06/17/24 Mor Ramsey Medical Student 04/03/24 Case Samuel MD [address] [place] [address], [address] [place] [address] Assigned Pediatric Specialist Provider 05/18/24 documented as of this encounter
--- OUTSIDE RECORDS SUMMARY | 2024-06-25 16:14 | XMS_ITS | Encounter Summary ---
Author Organization [facility] Address [address] [place] [address]. [place] [address] Care Team Providers Care Treatment Supervisor Name Role Phone No Ref-Primary, Physician Primary Care Provider Mor Ramsey Unavailable Unavailable Case Samuel MD Unavailable [phone] Reason for Visit * Reason Comments Chest Pain Sickle Cell Pain Crisis Encounter Details Date Type Department Care Team (Late st Contact Info) Description 05/22/2024 3:27 PM CONCRETE ANALYST - 05/22/2024 6:55 PM CONCRETE ANALYST Emergency [facility] Emergency Room [facility] [place] [address] Bernabe Farley MD [facility] [address] [place] [id number] Sickle cell pain crisis (H) Discharge Disposition: [...] on file Legal Sex Female 8:25 AM CONCRETE ANALYST Gender Identity Not on file Sexual Orientation Not on file documented as of this encounter Last Filed Vital Signs Vital Sign Reading Time Taken Comments Blood Pressure 111/59 05/22/2024 6:53 PM CONCRETE ANALYST Pulse 106 05/22/2024 6:52 PM CONCRETE ANALYST Temperature 36.7 C (98.1 F) 05/22/2024 3:11 PM CONCRETE ANALYST Respiratory Rate 20 05/22/2024 3:11 PM CONCRETE ANALYST Oxygen Saturation 95% 05/22/2024 6:52 PM CONCRETE ANALYST Inhaled Oxygen Concentration - - Weight 51.7 kg (114 lb) 05/22/2024 3:11 PM CONCRETE ANALYST Height 154.9 cm (5' 1) 05/22/2024 3:11 PM CONCRETE ANALYST Body Mass Index 21.54 05/22/2024 3:11 PM CONCRETE ANALYST documented in this encounter Discharge Instructions * Attachments The following attachments cannot be sent through Care Everywhere. * Sickle Cell Crisis (Italian) documented in this encounter Medications at Time [...] RN - 05/22/2024 6:29 PM CST Bed: [facility] Expected date: Expected time: Means of arrival: Comments: Crash RETE ANALYST * Bernabe Farley MD - 05/22/2024 3:27 [...] April. Today will be the 16th visit. 1436 Patient is a 29-year-old woman with history [...] and Inpatient Record: Patient was seen at [facility] ED on 05/20/23 Care impacted by [...] Per chart review, patient was seen at [facility] ED on 05/20/24 for sickle cell [...] She has seen the oncologist at the [facility] and has future follow-up appointments [...] my direction. Bernabe Farley M.D. Emergency Medicine [facility] EMERGENCY ROOM [address] [id number] Dept: [phone] Bernabe Farley MD 05/22/242 RETE ANALYST * Sanjay Purdy RN - 05/22/2024 3:10 [...] WDL WDL Cognitive/Neuro/Behavioral WDL Cognitive/Neuro/Behavioral WDL WDL RETE ANALYST documented in this encounter Plan of Treatment Not on file documented as of this encounter Goals Goal Patient Goal Type Associated Problems Recent Progress Patient-Stated? Author Pain Management General On track( 025 12:40 PM CONCRETE ANALYST) Yes Juhi Benson, SOFIA Note: Goal Statement: [...] CHEST 2 VIEWS STAT 05/22/2024 5:19 PM CONCRETE ANALYST RBC AND PLATELET MORPHOLOGY STAT 05/22/2024 3:51 PM CONCRETE ANALYST CBC WITH PLATELETS AND DIFFERENTIAL STAT 05/22/2024 3:51 PM CONCRETE ANALYST CBC WITH PLATELETS & DIFFERENTIAL STAT 05/22/2024 3:51 PM CONCRETE ANALYST BASIC METABOLIC PANEL STAT 05/22/2024 3:51 PM CONCRETE ANALYST ECG 12-LEAD WITH MUSE SJN,SJO,WWH STAT 05/22/2024 3:14 PM CONCRETE ANALYST documented in this encounter Results * Chest XR, PA & LAT (05/22/2024 5:19 PM CONCRETE ANALYST) Anatomical Region Laterality Modality Chest Digital Radiogra phy 05/22/2024 5:19 PM CONCRETE ANALYST Impressions 05/22/2024 5:42 PM CONCRETE ANALYST IMPRESSION: Unchanged ill-defined hazy opacities in the peripheral right lung, which may correspond with nodular opacities seen on CT chest dated 05/04/2024. No new focal airspace disease. No pleural effusion or pneumothorax. The cardiomediastinal silhouette is unremarkable. Narrative 05/22/2024 5:42 PM CONCRETE ANALYST EXAM: XR CHEST 2 VIEWS LOCATION: [facility] DATE: 05/22/2024 INDICATION: L chest pain, concern for acute chest syndome COMPARISON: 05/20/2024, CT chest 05/04/2024 Procedure Note Robert Marks MD - 05/22/2024 EXAM: XR CHEST 2 VIEWS LOCATION: [facility] DATE: 05/22/2024 INDICATION: L chest pain, concern for acute chest syndome COMPARISON: 05/20/2024, CT chest 05/04/2024 IMPRESSION: Unchanged ill-defined hazy opacities in the peripheral right lung, whichmay correspond with nodular opacities seen on CT chest dated 05/04/2024. No new focal airspace disease. No pleural effusion or pneumothorax. The cardiomediastinal silhouette is unremarkable. us Bernabe Farley MD [facility] ORDERA BLES Final Result * (ABNORMAL) RBC and Platelet Morphology (05/22/2024 3:51 PM CONCRETE ANALYST) [facility] RBC Morphology Confirmed RBC Indices 05/22/2024 4:30 PM CONCRETE ANALYST [facility] Platelet Assessment Automated Count Confirmed. Giant platelets are present.(A) Automated Count Confirmed. Platelet morphology is normal. JARET 05/22/2024 4:30 PM CONCRETE ANALYST [facility] Giant Platelets Slight(A) None Seen [facility] 05/22/2024 4:30 PM CONCRETE ANALYST [facility] Elliptocytes Slight(A) None Seen JARET 05/22/2024 4:30 PM CONCRETE ANALYST [facility] Ziegler-Bad Axe Bodies Present(A) None Seen [facility] 05/22/2024 4:30 PM CONCRETE ANALYST [facility] Polychromasia Slight(A) None Seen JARET 05/22/2024 4:30 PM CONCRETE ANALYST [facility] RBC Fragments Slight(A) None Seen [facility] 05/22/2024 4:30 PM CONCRETE ANALYST [facility] Sickle Cells Moderate(A) None Seen [facility] 05/22/2024 4:30 PM CONCRETE ANALYST [facility] Target Cells Slight(A) None Seen [facility] 05/22/2024 4:30 PM [facility] Blood VENOUS LINE / Unknown Venipuncture / Unknown 05/22/2024 3:51 PM CONCRETE ANALYST 05/22/2024 3:54 PM CONCRETE ANALYST us Bernabe Farley MD LAB - BLOOD ORDERABLES Final Result [facility] [address] [place] [address], [place] * (ABNORMAL) CBC with platelets and differential (05/22/2024 3:51 PM CONCRETE ANALYST) WBC Count 14.5(H) 4.0 - 11.0 10e3/uL 05/22/2024 4:30 PM [facility] RBC Count 2.59(L) 3.80 - 5.20 10e6/uL 05/22/2024 4:30 PM [facility] Hemoglobin 8.2(L) 11.7 - 15.7 g/dL 05/22/2024 4:30 PM [facility] Hematocrit 23.4(L) 35.0 - 47.0 % 05/22/2024 4:30 PM [facility] MCV 90 78 - 100 fL 05/22/2024 4:30 PM [facility] MCH 31.7 26.5 - 33.0 pg 05/22/2024 4:30 PM [facility] MCHC 35.0 31.5 - 36.5 g/dL 05/22/2024 4:30 PM [facility] RDW 22.9(H) 10.0 - 15.0 % 05/22/2024 4:30 PM [facility] Platelet Count 552(H) 150 - 450 10e3/uL 05/22/2024 4:30 PM [facility] % Neutrophils 53 % 05/22/2024 4:30 PM [facility] % Lymphocytes 30 % 05/22/2024 4:30 PM [facility] % Monocytes 14 % 05/22/2024 4:30 PM [facility] % Eosinophils 1 % 05/22/2024 4:30 PM [facility] % Basophils 1 % 05/22/2024 4:30 PM [facility] % Immature Granulocytes 1 % 05/22/2024 4:30 PM [facility] NRBCs per 100 WBC 2(H) <1 /100 025 4:30 PM [facility] Absolute Neutrophils 7.7 1.6 - 8.3 10e3/uL 05/22/2024 4:30 PM [facility] Absolute Lymphocytes 4.3 0.8 - 5.3 10e3/uL 05/22/2024 4:30 PM [facility] Absolute Monocytes 2.0(H) 0.0 - 1.3 10e3/uL 05/22/2024 4:30 PM [facility] Absolute Eosinophils 0.1 0.0 - 0.7 10e3/uL 05/22/2024 4:30 PM [facility] Absolute Basophils 0.2 0.0 - 0.2 10e3/uL 05/22/2024 4:30 PM [facility] Absolute Immature Granulocytes 0.2 <=0.4 10e3/uL 05/22/2024 4:30 PM [facility] Absolute NRBCs 0.3 10e3/uL 05/22/2024 4:30 PM [facility] Blood VENOUS LINE / Unknown Venipuncture / Unknown 05/22/2024 3:51 PM CONCRETE ANALYST 05/22/2024 3:54 PM [facility] us Bernabe Farley MD LAB - BLOOD ORDERABLES Final Result [facility] [address] [place], [place] [address] * (ABNORMAL) Basic metabolic panel (05/22/2024 3:51 PM CONCRETE ANALYST) Sodium 138 135 - 145 mmol/L 05/22/2024 4:12 PM [facility] Potassium 4.8 3.4 - 5.3 mmol/L 05/22/2024 4:12 PM [facility] Chloride 107 98 - 107 mmol/L 05/22/2024 4:12 PM [facility] Carbon Dioxide (CO2) 20(L) 22 - 29 mmol/L 05/22/2024 4:12 PM [facility] Anion Gap 11 7 - 15 mmol/L 05/22/2024 4:12 PM [facility] Urea Nitrogen 9.9 6.0 - 20.0 mg/dL 05/22/2024 4:12 PM [facility] Creatinine 0.91 0.51 - 0.95 mg/dL 05/22/2024 4:12 PM [facility] GFR Estimate 87 >60 mL/min/1.7 3m2 05/22/2024 4:12 PM [facility] Comment:eGFR calculated usin 2020 CKD-EPI equation. Calcium 9.6 8.8 - 10.4 mg/dL 05/22/2024 4:12 PM CONCRETE ANALYST [facility] Comment:Reference intervals for this test were updated on 11/09/2023 to reflect our healthy population more accurately. There may be differences in the flagging of prior results with similar values performed with this method. Those prior results can be interpreted in the context of the updated reference intervals. Glucose 100(H) 70 - 99 mg/dL 05/22/2024 4:12 PM CONCRETE ANALYST [facility] Blood VENOUS LINE / Unknown Venipuncture / Unknown 05/22/2024 3:51 PM CONCRETE ANALYST 05/22/2024 3:54 PM CONCRETE ANALYST us Bernabe Farley MD LAB - BLOOD ORDERABLES Final Result Performing Organization Address City/[facility]/ZIP Co de Phone Number [facility] [address] * ECG 12-LEAD WITH MUSE (LHE) (05/22/2024 3:14 PM CONCRETE ANALYST) Systolic Blood Pressure mmHg RADIOLOGY RESULTS Diastolic Blood Pressure mmHg RADIOLOGY RESULTS Ventricular Rate 103 BPM RAD IOLOGY RESULTS Atrial Rate 103 BPM RADIOLOG Y RESULTS MD Interval 124 ms RADIOLOG Y RESULTS QRS Duration 80 ms RADIOLO GY RESULTS QT 316 ms RADIOLOGY RESULTS QTc 413 ms RADIOLOGY RESULTS P [place] 82 degrees RADIOLOGY RESULTS R AXIS 90 degrees RADIOLOGY RESULTS T [place] 70 degrees RADIOLOGY RESULTS Interpretation ECG Sinus tachycardia Rightward axis Borderline ECG When compared with ECG of 20-May-2024 07:36, Nonspecific T wave abnormality no longer evident in Anterior leads Confirmed by SEE ED PROVIDER NOTE FOR, ECG INTERPRETATION (4000), index editor Leticia Warner ([id number]) on 05/22/2024 4:13:58 PM RADIOLOGY RESULTS 05/22/2024 3:14 PM CONCRETE ANALYST 05/22/2024 4:13 PM CONCRETE ANALYST us Bernabe Farley MD ECG ORDERABLES Edited Result - Final Performing Organization Address City/[facility]/ZIP Co de Phone Number RADIOLOGY [...] For 1 dose $Given 05/22/2024 4:00 PM CONCRETE ANALYST 25 mg HYDROmorphone (DILAUDID) injection 2 mg 2 mg, Intravenous, EVERY 1 HOUR PRN, severe pain, Starting on Wed05/22/24 at 1537, For 3 doses $Given 05/22/2024 6:39 PM CONCRETE ANALYST 2 mg $Given 05/22/2024 5:33 PM CONCRETE ANALYST 2 mg $Given 05/22/2024 4:00 PM CONCRETE ANALYST 2 mg lactated ringers BOLUS 500 mL Intravenous, 500 mL, ONCE, On Wed05/22/24 at 1600, For 1 dose $New Bag 05/22/2024 4:13 PM CONCRETE ANALYST 500 mLs ondansetron (ZOFRAN) injection 4 mg 4 mg, Intravenous, ONCE, Administer over 2-5 Minutes, On Wed05/22/24 at 1600, For 1 dose $Given 05/22/2024 4:00 PM CONCRETE ANALYST 4 mg documented in this encounter Active and Recently Administered Medications Times are shown in CONCRETE ANALYST. Scheduled Medication Order 05/20/2024 05/21/2024 05/22/2024 diphenhydrAMINE [...] SOFIA) documented in this encounter Care Teams Treatment Supervisor Relationship Specialty Start Date End Date No Ref-Primary, Physician PCP - General 03/15/24 06/17/24 Elvira Ramseyc Medical Student 04/03/24 Case Samuel MD [address] [place] [address], [address] [place] [address] Assigned Pediatric Specialist Provider 05/18/24 documented as of this encounter
--- OUTSIDE RECORDS SUMMARY | 2024-06-25 16:14 | XMS_ITS | Encounter Summary ---
Author Organization [facility] [place] Address [address] [place] [id number] Care Team Providers Care Tar Pot Man Name Role Phone No Ref-Primary, Physician Primary Care Provider Mor Ramsey Unavailable Unavailable Case Samuel MD Unavailable [phone] Reason for Referral * Therapeutic Imaging/IR (Routine: Next available opening) - Closed Specialty Diagnoses / Procedures Referred By Contac t Referred To Contact Radiology. 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) [...] on file Legal Sex Female 8:25 AM HOT ROLLER Gender Identity Not on file Sexual Orientation Not on file documented as of this encounter Last Filed Vital Signs Vital Sign Reading Time Taken Comments Blood Pressure 100/60 05/25/2024 4:00 PM HOT ROLLER Pulse 92 05/25/2024 3:00 PM HOT ROLLER Temperature 36.9 C (98.5 F) 05/25/2024 11:09 AM HOT ROLLER Respiratory Rate 16 05/25/2024 4:00 PM HOT ROLLER Oxygen Saturation 98% 05/25/2024 4:00 PM HOT ROLLER Inhaled Oxygen Concentration - - Weight 51.1 kg (112 lb 9.6 oz) 05/25/2024 11:09 AM HOT ROLLER Height - - Body Mass Index 21.28 05/23/2024 4:48 PM HOT ROLLER documented in this encounter Discharge Instructions * Discharge Instructions* Hattie Ballesteros RN - 05/25/2024 3:24 PM HOT ROLLER Images from the original note were not included. Formerly [facility] Interventional Radiology Discharge Instructions Following Port Placement You had a 2 ports placed. On the right side of your chest is a apheresis port and on the left side of your chest in a smart port. A port is a small medical surgical tech that is placed under the skin and isconnected to a vein with a catheter (thin, flexible tube). Ports can be used to administer IV medications (including chemotherapy), fluids or blood products or for blood lab draws. Please follow the below instructions after your procedure: Your Ports has been closed with [place] (Skin Glue) If there is any [...] port placement for further instructions for this. [facility] INTERVENTIONAL RADIOLOGY DEPARTMENT Procedure Physician: Myron Michel MD Date of procedure: May 25, 2024 Telephone Numbers: [phone] Wednesday-Wednesday 7:30 am to 4:00 pm [phone] After 4:00 pm Wednesday-Wednesday, Weekends & Holidays. Ask for the Interventional Radiologist sap basis consultant. Someone is sap basis consultant 24 hrs/day [facility] toll free number: Wednesday-Wednesday 8:00 am to 4:30 pm [facility] Emergency Dept: [phone] IF YOU ARE EXPERIENCING A MEDICAL EMERGENCY PLEASE CALL 911 ROLLER ROLLER documented in this encounter Medications at Time [...] to s/o who is driving patient home. ROLLER * Hattie Ballesteros RN - 05/25/2024 3:07 PM CST Patient returned s/p bilateral port placement with apheresis port on the right and smart port on the left, both with dermabond, intact no bleeding or swelling. Patient c/o 7/10 pain, RN called Dr. Anglin and got home dose of dilaudid ordered. Patient alert and oriented, RASS of 0. Will discharge once meeting criteria. ROLLER * Hattie Ballesteros RN - 05/25/2024 12:32 PM CST Patient prepped for port placement x 2. Patient will have a power port and a apharesis IV port. Consent signed. PIV placed in left AC by vascular, IV antibiotic running. Appropriately NPO. Patient has sickle cell disease, reports pain okay today. S/o Vineet will be picking patient up. ROLLER documented in this encounter Procedure Notes * Myron Michel MD - 05/25/2024 2:55 PM CSTAssociated Order(s): IR Procedure Note [facility] Procedure: IR Procedure Note Date/Time: 05/25/2024 2:54 [...] the procedure a time out was called Coker Protocol: the Joint Commission Coker Protocol was followed Preparation: Patient was prepped and draped in usual sterile fashion ANESTHESIA Anesthesia: Local infiltration Local Anesthetic: Lidocaine 1% without epinephrine SEDATION Patient Sedated: Yes Sedation Type: Moderate (conscious) sedation Sedation: Fentanyl and midazolam Vital signs: Vital signs monitored during sedation See dictated procedure note for full details. Findings: Successful bilateral port placement apheresis on the right, 6 saudi arabian smart port on the left Specimens: none Procedural Complications: None Condition: Stable Plan: 1 hour bedrest then okay to discharge PROCEDURE Describe Procedure: Successful bilateral port placement apheresis on the right, 6 [place]ab[place] smart porton the left Patient Tolerance: Patient tolerated the procedure well with no immediate complications Length of time physician/provider present for 1:1 monitoring during sedation: 83-97 min ROLLER documented in this encounter Miscellaneous Notes * [...] mcg of fentanyl Sedation time: 97 minutes ([id number]) Report given to: Juhi Aviles RN Banquet Prep Cook: n/a Other Notes: Pt arrived to IR [...] (5 mL). Pt transferred back to . ROLLER * Pre-Procedure - Juan Story PA-[place] - 05/25/2024 11:37 AM HOT ROLLER GENERAL PRE-PROCEDURE: Procedure: Port placement x2 Date/Time: [...] data, medications, and the plan for sedation ROLLER documented in this encounter Plan of Treatment Not on file documented as of this encounter Goals Goal Patient Goal Type Associated Problems Recent Progress Patient-Stated? 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) HCG QUALITATIVE URINE Routine 05/25/2024 12:03 PM HOT ROLLER documented in this encounter Results * IR Procedure Note (05/25/2024 2:54 PM HOT ROLLER) Narrative Myron Michel MD - 05/25/2024 2:54 PM HOT ROLLER Myron Michel MD 05/25/2024 2:55 PM [facility] Procedure: IR Procedure Note Date/Time: 05/25/2024 2:54 [...] the procedure a time out was called Coker Protocol: the Joint Commission Coker Protocol was followed Preparation: Patient was prepped and draped in usual sterile fashion ANESTHESIA Anesthesia: Local infiltration Local Anesthetic: Lidocaine 1% without epinephrine SEDATION Patient Sedated: Yes Sedation Type: Moderate (conscious) sedation Sedation: Fentanyl and midazolam Vital signs: Vital signs monitored during sedation See dictated procedure note for full details. Findings: Successful bilateral port placement apheresis on the right, 6 saudi arabian smart port on the left Specimens: none Procedural Complications: None Condition: Stable Plan: 1 hour bedrest then okay to discharge PROCEDURE Describe Procedure: Successful bilateral port placement apheresis on the right, 6 saudi arabian smart port on the left Patient Tolerance: Patient tolerated the procedure well with no immediate complications Length of time physician/provider present for 1:1 monitoring during sedation: 83-97 min us Myron Michel MD PROCEDURE/MINOR SURGICAL ORDERA BLES Final Result * IR Chest Port Placement > 5 Yrs of Age (05/25/2024 2:47 PM HOT ROLLER) Anatomical Region Laterality Modality Chest Radio Fluoroscop y Impressions 05/25/2024 5:26 PM HOT ROLLER IMPRESSION: Insertion of right-sided apheresis chest port, [...] mg Versed Sedation time: 97 minutes ATTENDING [id number] SEDATION TIME: less than 5 minutes. Access [...] placed: BD PowerFlow apheresis port Catheter size (Swedish): 9.6 Lumens: Single-lumen Power injectable: Yes Catheter [...] JASWINDER COOPER MD Narrative 05/25/2024 5:26 PM HOT ROLLER PROCEDURE: Venous port placement Procedural Personnel Attending [...] mg Versed Sedation time: 97 minutes ATTENDING [id number] SEDATION TIME: less than 5 minutes. Access [...] placed: BD PowerFlow apheresis port Catheter size (Swedish): 9.6 Lumens: Single-lumen Power injectable: Yes Catheter [...] 4 Yrs of Age (05/25/2024 2:47 PM HOT ROLLER) Anatomical Region Laterality Modality Chest Radio Fluoroscop y Impressions 05/25/2024 5:23 PM HOT ROLLER IMPRESSION: Insertion of left-sided 6 Swedish chest port, with catheter tip in the [...] mg Versed Sedation time: 97 minutes ATTENDING [id number]-[id number] SEDATION TIME: 5 minutes. Access Local anesthesia [...] AngioDynamics Plastic CT Smart Port Catheter size (Swedish): 6 Lumens: Single-lumen Power injectable: Yes Catheter [...] JASWINDER COOPER MD Narrative 05/25/2024 5:23 PM HOT ROLLER PROCEDURE: Venous port placement Procedural Personnel Attending [...] immediate complications. IMPRESSION: Insertion of left-sided 6 Swedish chest port, with catheter tip in the [...] mg Versed Sedation time: 97 minutes ATTENDING [id number] SEDATION TIME: 5 minutes. Access Local anesthesia [...] AngioDynamics Plastic CT Smart Port Catheter size (Swedish): 6 Lumens: Single-lumen Power injectable: Yes Catheter [...] * HCG qualitative urine (05/25/2024 12:03 PM HOT ROLLER) hCG Urine Qualitative Negative Negative JARET 05/25/2024 12:34 PM HOT ROLLER [facility] Comment:This test is for scr eening purposes. Results should be interpreted along with the clinical picture. Confirmation testing is available if warranted by ordering [id number], HCG Quantitative . Urine MID-STREAM URINE SPECIMEN / Unknown Non-blood Collection / Unknown 05/25/2024 12:03 PM HOT ROLLER 05/25/2024 12:19 PM HOT ROLLER us Jaswinder Cooper MD LAB - URINE ORDERABLES [facility] Result [facility] Core Lab [address] [facility], Room [address] [id number] documented in this encounter [...] ative Pharmacoprophylaxis $New Bag 05/25/2024 12:17 PM HOT ROLLER 2 g 200 mL/hr fentaNYL (PF) (SUBLIMAZE) [...] physician., IR Intra-procedure $Given 05/25/2024 2:38 PM HOT ROLLER 25 mcg $Given 05/25/2024 2:25 PM HOT ROLLER 50 mcg $Given 05/25/2024 2:16 PM HOT ROLLER 25 mcg flumazenil (ROMAZICON) injection 0.2 mg [...] $Given by Other Clinician 05/25/2024 1:40 PM HOT ROLLER 5,000 Units heparin lock flush 100 unit/mL injection 5 mL 5 mL, Intracatheter, ONCE, On Citlali 05/25/24 at 1330, For 1 dose, Left chest port $Given by Other Clinician 05/25/2024 2:30 PM HOT ROLLER 5 mLs HYDROmorphone (DILAUDID) tablet 2 mg 2 mg, Oral, ONCE PRN, severe pain, Starting on Citlali 05/25/24 at 1507, For 1 dose $Given 05/25/2024 3:16 PM HOT ROLLER 2 mg lidocaine (LMX4) cream Topical, EVERY [...] $Given by Other Clinician 05/25/2024 1:58 PM HOT ROLLER 40 mLs midazolam (VERSED) injection 0.5-2 mg [...] dose., IR Intra-procedure $Given 05/25/2024 2:38 PM HOT ROLLER 0.5 mg $Given 05/25/2024 2:25 PM HOT ROLLER 1 mg $Given 05/25/2024 2:16 PM HOT ROLLER 0.5 mg naloxone (NARCAN) injection 0.2 mg [...] Recently Administered Medications Times are shown in HOT ROLLER. Scheduled Medication Order 05/23/2024 05/24/2024 05/25/2024 ceFAZolin [...] procedure documented in this encounter Care Teams Tar Pot Man Relationship Specialty Start Date End Date No Ref-Primary, Physician PCP - General 03/15/24 06/17/24 Mor Ramsey Medical Student 04/03/24 Case Samuel MD [address] [place] [address] [address], [address] [place] [address] Assigned Pediatric Specialist Provider 05/18/24 documented as of this encounter
--- OUTSIDE RECORDS SUMMARY | 2024-06-25 16:14 | XMS_ITS | Encounter Summary ---
Author Organization [facility] Address [address] [place] [address]. [place] [address] Care Team Providers Care Business Developer Name Role Phone No Ref-Primary, Physician Primary Care Provider Mor Ramsey Unavailable Unavailable Case Samuel MD Unavailable [phone] Encounter Details Date Type Department Care Team [...] on file Legal Sex Female 8:25 AM LANDMAN Gender Identity Not on file Sexual Orientation Not on file documented as of this encounter Plan of Treatment Not on file documented as of this encounter Goals Goal Patient Goal Type Associated Problems Recent Progress Patient-Stated? Author Pain Management General On track( 025 12:40 PM LANDMAN) Yes Juhi Benson, RN Note: Goal Statement: [...] on filedocumented in this encounter Care Teams Business Developer Relationship Specialty Start Date End Date No Ref-Primary, Physician PCP - General 03/15/24 06/17/24 Mor Ramsey Medical Student 04/03/24 Case Samuel MD [address] [place] [address] [address], [address] [place] [address] Assigned Pediatric Specialist Provider 05/18/24 documented as of this encounter
--- OUTSIDE RECORDS SUMMARY | 2024-06-25 16:14 | XMS_ITS | Encounter Summary ---
Author Organization [facility] Address [address] [place] [address] Care Team Providers Care Underwriting Intern Name Role Phone No Ref-Primary, Physician Primary Care Provider Mor Ramsey Unavailable Unavailable Reason for Visit * Reason Comments Sickle Cell Pain Crisis Encounter Details Date Type Department Care Team ([facility] st Contact Info) Description 05/13/2024 3:56 PM PRESS SET UP PERSON - 05/13/2024 7:56 PM PRESS SET UP PERSON Emergency [facility] Emergency Room [facility] [place] [address] Shaheen Unger MD [address] [place] [id number] Sickle cell pain crisis (H) Discharge Disposition: [...] on file Legal Sex Female 8:25 AM PRESS SET UP PERSON Gender Identity Not on file Sexual Orientation Not on file documented as of this encounter Last Filed Vital Signs Vital Sign Reading Time Taken Comments Blood Pressure 102/66 05/13/2024 7:45 PM PRESS SET UP PERSON Pulse 83 05/13/2024 7:45 PM PRESS SET UP PERSON Temperature 36.9 C (98.4 F) 05/13/2024 7:45 PM PRESS SET UP PERSON Respiratory Rate 29 05/13/2024 7:45 PM PRESS SET UP PERSON Oxygen Saturation 97% 05/13/2024 7:29 PM PRESS SET UP PERSON Inhaled Oxygen Concentration - - Weight 53.3 kg (117 lb 6.4 oz) 05/13/2024 3:33 P M PRESS SET UP PERSON Height 154.9 cm (5' 1) 05/13/2024 3:33 PM PRESS SET UP PERSON Body Mass Index 22.18 05/13/2024 3:33 PM PRESS SET UP PERSON documented in this encounter Discharge Instructions * Discharge Instructions* Shaheen Unger MD - 05/13/2024 7:45 PM PRESS SET UP PERSON Your workup in the emergency department today was reassuring. I would continue with your prescription medications and contact your natural gas engineer determine if they would like to follow-up with you closely in clinic otherwise if you develop fevers, significantly worsening chest pain, new shortness of breath or other concerning symptom please return to the emergency department for repeat evaluation. S SET UP PERSON * Attachments The following attachments cannot be sent through Care Everywhere. * Sickle Cell Crisis (Tanzanian) documented in this encounter Medications at Time [...] with other provider:Did you involve another provider (hearing consultant, , pharmacy, etc.)?: No Discharge. No [...] was obtained from: the patient Use of Co Pilot: N/A Gianna Hernández is a 29 year [...] was on 05/08/2024 (5 days ago) at [facility] ED. Prescriptions for Augmentin and doxycycline sent to her listed [facility] pharmacy. 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 Recently moved to [place] from [place], [place]. She is 1 of 9 [...] Social Connections: Socially Integrated (03/28/2024) Received from [facility] Social Connections Do [...] BPM Atrial Rate 102 BPM IL Interval 144 ms QRS Duration 84 ms QT 322 ms QTc 419 ms P [place] 32 degrees R AXIS 59 degrees T [place] 37 degrees Interpretation ECG Sinus tachycardia Nonspecific T wave abnormality Abnormal ECG When compared with ECG of 08-May-2024 15:13, No significant change was found Confirmed by SEE ED PROVIDER NOTE FOR, ECG INTERPRETATION (4000), supervising editor news reel Leticia Warner ([id number]) on 05/13/2024 4:13:45 PM RADIOLOGY: Reviewed all pertinent imaging. Please see official radiology report. No orders to display EKG: Performed at: Impression: EKG shows sinus tachycardia 102 beats a minute, normal axis, normal IL, QRS and QTc durations, no ST elevations, T wave inversions in V1 through V3 seen on prior EKGs, I have independently reviewed and interpreted the EKG(s) documented above. [facility] System Documentation: [facility] Diagnoses: I, Abraham Ashby, am serving as a scribe to document services personally performed by Shaheen Unger MDbased on my observation and the provider's statements to me. I, Shaheen Unger MD, attest that Regla is acting in a scribe capacity, has observed my performance of the services and has documentedthem in accordance with my direction. Shaheen Unger MD [facility] EMERGENCY ROOM [address] [facility] [id number] Shaheen Unger MD 05/13/24 [id number] S SET UP PERSON * Jennifer Scherer RN - 05/13/2024 3:36 [...] ECG obtained Cognitive/Neuro/Behavioral WDL Cognitive/Neuro/Behavioral WDL WDL S SET UP PERSON documented in this encounter Plan of Treatment Not on file documented as of this encounter Goals Goal Patient Goal Type Associated Problems Recent Progress Patient-Stated? Author Pain Management General On track( 025 12:40 PM PRESS SET UP PERSON) Yes Juhi Benson, RN Note: Goal Statement: [...] Comments EXTRA TUBE STAT 05/13/2024 6:17 PM PRESS SET UP PERSON EXTRA PURPLE TOP TUBE STAT 05/13/2024 6:17 PM PRESS SET UP PERSON LACTATE DEHYDROGENASE STAT 05/13/2024 6:16 PM PRESS SET UP PERSON MANUAL DIFFERENTIAL STAT 05/13/2024 4 :57 PM PRESS SET UP PERSON CBC WITH PLATELETS AND DIFFERENTIAL STAT 05/13/2024 4:57 PM PRESS SET UP PERSON TROPONIN T, HIGH SENSITIVITY STAT 05/13/2024 4:57 PM PRESS SET UP PERSON CBC WITH PLATELETS & DIFFERENTIAL STAT 05/13/2024 4:57 PM PRESS SET UP PERSON RETICULOCYTE COUNT STAT 05/13/2024 4: 57 PM PRESS SET UP PERSON HEPATIC FUNCTION PANEL STAT 4:57 PM PRESS SET UP PERSON BASIC METABOLIC PANEL STAT 05/13/2024 4:57 PM PRESS SET UP PERSON ECG 12-LEAD WITH MUSE [facility] STAT 05/13/2024 3:38 PM PRESS SET UP PERSON documented in this encounter Results * Extra Purple Top Tube (05/13/2024 6:17 PM PRESS SET UP PERSON) Pathologist [facility] Hold Specimen JI 05/13/2024 7:31 PM PRESS SET UP PERSON [facility] Blood STRUCTURE OF RIGHT UPPER LIMB / Unknown Venipuncture / Unknown 05/13/2024 6:17 PM PRESS SET UP PERSON 05/13/2024 6:23 PM PRESS SET UP PERSON us Shaheen Unger MD LAB - BLOOD ORDERABLES Final Res ult Performing Organization Address [facility] Co de Phone Number [facility] [address] [facility] [place] [address], [facility] * (ABNORMAL) Lactate Dehydrogenase (05/13/2024 6:16 PM PRESS SET UP PERSON) [facility] Lactate Dehydrogenase 514(H) 0 - 250 U/L 05/13/2024 6:42 PM PRESS SET UP PERSON [facility] Blood STRUCTURE OF RIGHT UPPER LIMB / Unknown Venipuncture / Unknown 05/13/2024 6:16 PM PRESS SET UP PERSON 05/13/2024 6:23 PM PRESS SET UP PERSON us Shaheen Unger MD LAB - BLOOD ORDERABLES Final Res ult Performing Organization Address City/[facility]/ZIP Co de Phone Number [facility] [address] [facility] [place] [address], [facility] * (ABNORMAL) Manual Differential (05/13/2024 4:57 PM PRESS SET UP PERSON) % Neutrophils 63 % JARET 05/13/2024 5:54 PM [facility] % Lymphocytes 25 % JARET 05/13/2024 5:54 PM [facility] % Monocytes 11 % JARET 05/13/2024 5:54 PM [facility] % Eosinophils 1 % JARET 05/13/2024 5:54 PM [facility] % Basophils 0 % JARET 05/13/2024 5:54 PM [facility] Absolute Neutrophils 11.0(H) 1.6 - 8.3 10e3/uL JARET 05/13/2024 5:54 PM [facility] Absolute Lymphocytes 4.4 0.8 - 5.3 10e3/uL JARET 05/13/2024 5:54 PM [facility] Absolute Monocytes 1.9(H) 0.0 - 1.3 10e3/uL JARET 05/13/2024 5:54 PM [facility] Absolute Eosinophils 0.2 0.0 - 0.7 10e3/uL JARET 05/13/2024 5:54 PM [facility] Absolute Basophils 0.0 0.0 - 0.2 10e3/uL JARET 05/13/2024 5:54 PM [facility] RBC Morphology Confirmed RBC Indices JARET 05/13/2024 5:54 PM [facility] Platelet Assessment Automated Count Confirmed. Platelet morphology is normal. Automated Count Confirmed. Platelet morphology is normal. JARET 05/13/2024 5:54 PM [facility] Acanthocytes Slight(A) None Seen JARET 05/13/2024 5:54 PM [facility] Elliptocytes Slight(A) None Seen JARET 05/13/2024 5:54 PM [facility] Polychromasia Slight(A) None Seen JARET 05/13/2024 5:54 PM [facility] Sickle Cells Moderate(A) None Seen JARET 05/13/2024 5:54 PM [facility] Target Cells Slight(A) None Seen JARET 05/13/2024 5:54 PM [facility] Blood VENOUS LINE / Unknown Venipuncture / Unknown 05/13/2024 4:57 PM PRESS SET UP PERSON 05/13/2024 5:09 PM PRESS SET UP PERSON Shaheen Unger MD LAB - BLOOD ORDERABLES Final Res ult [facility] [address] [facility] [place] [address], [facility] * (ABNORMAL) CBC with platelets and differential (05/13/2024 4:57 PM PRESS SET UP PERSON) [facility] WBC Count 17.4(H) 4.0 - 11.0 10e3/uL 05/13/2024 5:54 PM [facility] RBC Count 2.16(L) 3.80 - 5.20 10e6/uL 05/13/2024 5:54 PM [facility] Hemoglobin 7.1(L) 11.7 - 15.7 g/dL 05/13/2024 5:54 PM [facility] Hematocrit 19.9(L) 35.0 - 47.0 % 05/13/2024 5:54 PM [facility] MCV 92 78 - 100 fL 05/13/2024 5:54 PM [facility] MCH 32.9 26.5 - 33.0 pg 05/13/2024 5:54 PM [facility] MCHC 35.7 31.5 - 36.5 g/dL 05/13/2024 5:54 PM [facility] RDW 24.5(H) 10.0 - 15.0 % 05/13/2024 5:54 PM [facility] Platelet Count 459(H) 150 - 450 10e3/uL 05/13/2024 5:54 PM [facility] Blood VENOUS LINE / Unknown Venipuncture / Unknown 05/13/2024 4:57 PM PRESS SET UP PERSON 05/13/2024 5:09 PM PRESS SET UP PERSON Shaheen Unger MD LAB - BLOOD ORDERABLES Final Res ult [facility] [address] [place] [address], [place] * Troponin T, High Sensitivity (05/13/2024 4:57 PM PRESS SET UP PERSON) Pathologist [facility] Troponin T, High Sensitivity <6 <=14 ng/L 05/13/2024 5:31 PM PRESS SET UP PERSON [facility] Comment: Either a High Sensitivity [...] Unknown Venipuncture / Unknown 05/13/2024 4:57 PM PRESS SET UP PERSON 05/13/2024 5:09 PM PRESS SET UP PERSON us Shaheen Unger MD LAB - BLOOD ORDERABLES Final Res ult [facility] [address] [facility] [place], [place] [address] * (ABNORMAL) Reticulocyte count (05/13/2024 4:57 PM PRESS SET UP PERSON) Pathologist [facility] % Reticulocyte 25.9(H) 0.5 - 2.0 % 05/13/2024 5:33 PM PRESS SET UP PERSON [facility] Absolute Reticulocyte 0.566(H) 0.025 - 0.095 10e6/uL 05/13/2024 5:33 PM PRESS SET UP PERSON [facility] Blood VENOUS LINE / Unknown Venipuncture / Unknown 05/13/2024 4:57 PM PRESS SET UP PERSON 05/13/2024 5:09 PM PRESS SET UP PERSON us Shaheen Unger MD LAB - BLOOD ORDERABLES Final Res ult [facility] [address] [facility] [place] [address], [facility] * (ABNORMAL) Hepatic function panel (05/13/2024 4:57 PM PRESS SET UP PERSON) [facility] Protein Total 7.4 6.4 - 8.3 g/dL 05/13/2024 5:38 PM [facility] Albumin 4.1 3.5 - 5.2 g/dL 05/13/2024 5:38 PM [facility] Bilirubin Total 2.4(H) <=1.2 mg/dL 05/13/2024 5:38 PM [facility] Alkaline Phosphatase 111 40 - 150 U/L 05/13/2024 5:38 PM [facility] AST 64(H) 0 - 45 U/L 05/13/2024 5:38 PM [facility] ALT 36 0 - 50 U/L 05/13/2024 5:38 PM [facility] Bilirubin Direct 05/13/19 25 5:38 PM [facility] Comment:Unsatisfactory speci men - hemolyzed Blood VENOUS LINE / Unknown Venipuncture / Unknown 05/13/2024 4:57 PM PRESS SET UP PERSON 05/13/2024 5:09 PM [facility] Shaheen Unger MD LAB - BLOOD ORDERABLES Final Res ult Performing Organization Address [facility]/State/ZIP Co de Phone Number [facility] [address] [place] [address] [place] [address], [facility] * (ABNORMAL) Basic metabolic panel (05/13/2024 4:57 PM PRESS SET UP PERSON) [facility] Sodium 136 135 - 145 mmol/L 05/13/2024 5:31 PM [facility] Potassium 4.8 3.4 - 5.3 mmol/L 05/13/2024 5:31 PM [facility] Chloride 104 98 - 107 mmol/L 05/13/2024 5:31 PM [facility] Carbon Dioxide (CO2) 19(L) 22 - 29 mmol/L 05/13/2024 5:31 PM [facility] Anion Gap 13 7 - 15 mmol/L 05/13/2024 5:31 PM PRESS SET UP PERSON [facility] Urea Nitrogen 9.1 6.0 - 20.0 mg/dL 05/13/2024 5:31 PM [facility] Creatinine 0.69 0.51 - 0.95 mg/dL 05/13/2024 5:31 PM [facility] GFR Estimate >90 >60 mL/min/1.7 3m2 05/13/2024 5:31 PM [facility] Comment:eGFR calculated usin g 2020 CKD-EPI equation. Calcium 8.3(L) 8.8 - 10.4 mg/dL 05/13/2024 5:31 PM [facility] Comment:Reference intervals for this test were updated on 11/09/2023 to reflect our healthy population more accurately. There may be differences in the flagging of prior results with similar values performed with this method. Those prior results can be interpreted in the context of the updated reference intervals. Glucose 103(H) 70 - 99 mg/dL 05/13/2024 5:31 PM [facility] Blood VENOUS LINE / Unknown Venipuncture / Unknown 05/13/2024 4:57 PM PRESS SET UP PERSON 05/13/2024 5:09 PM PRESS SET UP PERSON us Shaheen Unger MD LAB - BLOOD ORDERABLES Final Res ult [facility] [address] [facility] [place] [address], [facility] * ECG 12-LEAD WITH MUSE (LHE) (05/13/2024 3:38 PM PRESS SET UP PERSON) Systolic Blood Pressure mmHg RADIOLOGY RESULTS Diastolic Blood Pressure mmHg RADIOLOGY RESULTS Ventricular Rate 102 BPM RAD IOLOGY RESULTS Atrial Rate 102 BPM RADIOLOG Y RESULTS IL Interval 144 ms RADIOLOG Y RESULTS QRS Duration 84 ms RADIOLO GY RESULTS QT 322 ms RADIOLOGY RESULTS QTc 419 ms RADIOLOGY RESULTS P [place] 32 degrees RADIOLOGY RESULTS R AXIS 59 degrees RADIOLOGY RESULTS T [place] 37 degrees RADIOLOGY RESULTS Interpretation ECG Sinus tachycardia Nonspecific T wave abnormality Abnormal ECG When compared with ECG of 08-May-2024 15:13, No significant change was found Confirmed by SEE ED PROVIDER NOTE FOR, ECG INTERPRETATION (4000), supervising editor news reel Leticia Warner ([id number]) on 05/13/2024 4:13:45 PM RADIOLOGY RESULTS 05/13/2024 3:38 PM PRESS SET UP PERSON 05/13/2024 4:13 PM PRESS SET UP PERSON hSaheen Unger MD ECG ORDERABLES Edited Result - [...] For 1 dose $Given 05/13/2024 5:38 PM PRESS SET UP PERSON 25 mg diphenhydrAMINE (BENADRYL) injection 25 mg 25 mg, Intravenous, ONCE, On 05/13/24 at 1900, For 1 dose $Given 05/13/2024 7:05 PM PRESS SET UP PERSON 25 mg HYDROmorphone (DILAUDID) injection 1 mg 1 mg, Intravenous, EVERY 1 HOUR PRN, moderate pain, severe pain, Starting on 05/13/24 at 1610, For 1 dose, Notify the provider to assess for uncontrolled pain or analgesic side effects. Hold while on IV CHICKEN AND FISH BUTCHER or with regular IV opioid dosing. $Given 05/13/2024 4:58 PM PRESS SET UP PERSON 1 mg HYDROmorphone (DILAUDID) injection 1 mg 1 mg, Intravenous, ONCE, On 05/13/24 at 1800, For 1 dose $Given 05/13/2024 6:00 PM PRESS SET UP PERSON 1 mg HYDROmorphone (DILAUDID) injection 1 mg 1 mg, Intravenous, ONCE, On 05/13/24 at 1930, For 1 dose $Given 05/13/2024 7:28 PM PRESS SET UP PERSON 1 mg lactated ringers BOLUS 1,000 mL Intravenous, 1,000 mL, ONCE, at 500 mL/hr, Administer over 2 Hours, On 05/13/24 at 1630, For 1 dose $New Bag 05/13/2024 5:01 PM PRESS SET UP PERSON 1,000 mLs 500 mL/hr documented in this encounter Active and Recently Administered Medications Times are shown in PRESS SET UP PERSON. Scheduled Medication Order 05/11/2024 05/12/202405/13/2024 diphenhydrAMINE (BENADRYL) [...] analgesic side effects. Hold while on IV CHICKEN AND FISH BUTCHER or with regular IV opioid dosing. 1658 ($Given - Provi nas: Cherrie Garcia RN) documented in this encounter Care Teams Underwriting Intern Relationship Specialty Start Date End Date No Ref-Primary, Physician PCP - General 03/15/24 06/17/24 Mor Ramsey Medical Student 04/03/24 documented as of this encounter
--- OUTSIDE RECORDS SUMMARY | 2024-06-25 16:14 | XMS_ITS | Encounter Summary ---
Author Organization [place] Address [address] [place] [id number] Care Team Providers Care Kettle Chipper Name Role Phone No Ref-Primary, Physician Primary Care Provider Mor Ramsey Unavailable Unavailable Case Samuel MD Unavailable [phone] Reason for Visit * Reason Comments Sickle Cell Pain Crisis Chest Pain Encounter Details Date Type Department Care Team (Late st Contact Info) Description 05/20/2024 7:30 AM GRINDING ROOM INSPECTOR - 05/20/2024 11:15 AM [facility] Emergency [facility] Emergency Room [address] [place] [address] Stiven Madsen MD [facility] [address], [place] [id number] Sickle cell pain crisis (H) Discharge Disposition: [...] on file Legal Sex Female 8:25 AM GRINDING ROOM INSPECTOR Gender Identity Not on file Sexual Orientation Not on file documented as of this encounter Last Filed Vital Signs Vital Sign Reading Time Taken Comments Blood Pressure 115/59 05/20/2024 11:00 AM GRINDING ROOM INSPECTOR Pulse 76 05/20/2024 11:00 AM GRINDING ROOM INSPECTOR Temperature 37.3 C (99.2 F) 05/20/2024 7:33 AM GRINDING ROOM INSPECTOR Respiratory Rate 20 05/20/2024 11:00 AM GRINDING ROOM INSPECTOR Oxygen Saturation 100% 05/20/2024 11:00 AM GRINDING ROOM INSPECTOR Inhaled Oxygen Concentration - - Weight 50.8 kg (112 lb) 05/20/2024 7:33 AM GRINDING ROOM INSPECTOR Height 154.9 cm (5' 1) 05/20/2024 7:33 AM GRINDING ROOM INSPECTOR Body Mass Index 21.16 05/20/2024 7:33 AM GRINDING ROOM INSPECTOR documented in this encounter Discharge Instructions * Discharge Instructions* Stiven Madsen MD - 05/20/2024 11:08 AM GRINDING ROOM INSPECTOR Please continue working with your real estate assistant after this and recent hospital visits. Try to make sure that you are drinking plenty of liquids to keep yourself hydrated. Continue to take your usual pain medications. If you have other concerns specifically productive cough, severe chest pain, shortness of breath, or other immediate concern we should reevaluate in the emergency department. DING ROOM INSPECTOR documented in this encounter Medications at [...] in 10 minutes. Message sent to provider. DING ROOM INSPECTOR * Suzanne Cadet RN - 05/20/2024 10:00 AM CST Pt requesting additional medication for pain. Also requesting medication for itching. Message sent to provider. Medicated per provider order. DING ROOM INSPECTOR * Yanna Huerta RN - 05/20/2024 8:43 AM CST IV infiltrated and removed, LES RN coming to try for IV DING ROOM INSPECTOR * Yanna Huerta RN - 05/20/2024 8:10 AM CST Introduced self to patient. Whiteboard updated. Plan of care and length of time discussed with patient. Will continue to monitor. Yanna Huerta RN.......05/20/2024 8:37 AM DING ROOM INSPECTOR * Stiven Madsen MD - 05/20/2024 7:31 [...] cell disease. Radial instantly establishing care in [place] and with several ED visits across the [...] with other provider:Did you involve another provider (gis consultant, MH, pharmacy, etc.)?: No Discharge. 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 Recently moved to [place] from [place], [place]. She is 1 of 9 [...] Social Connections: Socially Integrated (03/28/2024) Received from [employer] [employer] [facility] Social Connections [...] wave abnormality. Rate: 86 Rhythm: Sinus rhythm Clyman: 18 55 25 PA Interval: 154 QRS Interval: 78 QTc Interval: [...] my direction. Stiven Madsen M.D. Emergency Medicine [facility] EMERGENCY ROOM [address] [place] [id number] Dept: [phone] Stiven Madsen MD 05/20/24 1354 DING ROOM INSPECTOR * Stefani Huizar RN - 05/20/2024 7:27 AM CST Pt c/o pain all over body, hx sickle cell and feels like flare up started 2 days ago. Pt also c/o left sided chest pain, pain with taking a deep breath. Pt was seen here yesterday as well for same states did not have chest pain then DING ROOM INSPECTOR DING ROOM INSPECTOR documented in this encounter Plan of Treatment Not on file documented as of this encounter Goals Goal Patient Goal Type Associated Problems Recent Progress Patient-Stated? Author Pain Management General On track( 025 12:40 PM GRINDING ROOM INSPECTOR) Yes Juhi Benson, RN Note: Goal [...] CHEST 2 VIEWS STAT 05/20/2024 9:30 AM GRINDING ROOM INSPECTOR EXTRA TUBE STAT 05/20/2024 9:09 AM GRINDING ROOM INSPECTOR EXTRA GREEN TOP (LITHIUM HEPARIN) TUBE STAT 05/20/2024 9:09 AM GRINDING ROOM INSPECTOR RBC AND PLATELET MORPHOLOGY STAT 05/20/2024 9:09 AM GRINDING ROOM INSPECTOR CBC WITH PLATELETS AND DIFFERENTIAL STAT 05/20/2024 9:09 AM GRINDING ROOM INSPECTOR CBC WITH PLATELETS & DIFFERENTIAL STAT 05/20/2024 9:09 AM GRINDING ROOM INSPECTOR RETICULOCYTE COUNT STAT 05/20/2024 9: 09 AM GRINDING ROOM INSPECTOR BASIC METABOLIC PANEL STAT 05/20/2024 9:09 AM GRINDING ROOM INSPECTOR BASIC METABOLIC PANEL STAT 05/20/2024 8:21 AM GRINDING ROOM INSPECTOR ECG 12-LEAD WITH MUSE [facility] STAT 05/20/2024 7:36 AM GRINDING ROOM INSPECTOR documented in this encounter Results * Chest XR, PA & LAT (05/20/2024 9:30 AM GRINDING ROOM INSPECTOR) Anatomical Region Laterality Modality Chest Digital Radiogra phy 05/20/2024 9:30 AM GRINDING ROOM INSPECTOR Impressions 05/20/2024 9:38 AM GRINDING ROOM INSPECTOR IMPRESSION: Slightly increased bilateral mid to lower lung patchy opacities which may reflect atelectatic changes or pneumonic infiltrates. No pleural effusion. Normal heart size. Multiple H-shaped thoracic vertebra consistent with the history of sickle cell disease. Narrative 05/20/2024 9:38 AM GRINDING ROOM INSPECTOR EXAM: XR CHEST 2 VIEWS LOCATION: [facility] DATE: 05/20/2024 INDICATION: Chest pain, sickle cell patient COMPARISON: Chest x-ray 05/08/2024 Procedure Note Twin Marin MD - 05/20/2024 EXAM: XR CHEST 2 VIEWS LOCATION: [facility] DATE: 05/20/2024 INDICATION: Chest pain, sickle [...] RBC and Platelet Morphology (05/20/2024 9:09 AM GRINDING ROOM INSPECTOR) Pathologist [facility] RBC Morphology Confirmed RBC Indices 05/20/2024 9:47 AM GRINDING ROOM INSPECTOR [facility] Platelet Assessment Automated Count Confirmed. Platelet morphology is normal. Automated Count Confirmed. Platelet morphology is normal. JARET 05/20/2024 9:47 AM GRINDING ROOM INSPECTOR [facility] Polychromasia Slight(A) None Seen JARET 05/20/2024 9:47 AM [facility] Reactive Lymphocytes Present(A) None Seen JARET 05/20/2024 9:47 AM [facility] Sickle Cells Moderate(A) None Seen JARET 05/20/2024 9:47 AM [facility] Target Cells Slight(A) None Seen JARET 05/20/2024 9:47 AM [facility] Blood VENOUS LINE / Unknown Venipuncture / Unknown 05/20/2024 9:09 AM GRINDING ROOM INSPECTOR 05/20/2024 9:14 AM [facility] us Stiven Madsen MD LAB - BLOOD ORDERABLES Final Result [facility] [address] [facility] [address] [facility] [address] [place] [address], [facility] * (ABNORMAL) Basic metabolic panel (05/20/2024 9:09 AM [facility]) Sodium 137 135 - 145 mmol/L 05/20/2024 9:42 AM [facility] Potassium 4.8 3.4 - 5.3 mmol/L 05/20/2024 9:42 AM [facility] Chloride 105 98 - 107 mmol/L 05/20/2024 9:42 AM [facility] Carbon Dioxide (CO2) 22 22 - 29 mmol/L 05/20/2024 9:42 AM [facility] Anion Gap 10 7 - 15 mmol/L 05/20/2024 9:42 AM [facility] Urea Nitrogen 7.4 6.0 - 20.0 mg/dL 05/20/2024 9:42 AM [facility] Creatinine 0.82 0.51 - 0.95 mg/dL 05/20/2024 9:42 AM [facility] GFR Estimate >90 >60 mL/min/1.7 3m2 05/20/2024 9:42 AM [facility] Comment:eGFR calculated usin 2020 CKD-EPI equation. Calcium 9.3 8.8 - 10.4 mg/dL 05/20/2024 9:42 AM [facility] Comment:Reference intervals for this test were updated on 11/09/2023 to reflect our healthy population more accurately. There may be differences in the flagging of prior results with similar values performed with this method. Those prior results can be interpreted in the context of the updated reference intervals. Glucose 107(H) 70 - 99 mg/dL 05/20/2024 9:42 AM [facility] Blood VENOUS LINE / Unknown Venipuncture / Unknown 05/20/2024 9:09 AM GRINDING ROOM INSPECTOR 05/20/2024 9:14 AM GRINDING ROOM INSPECTOR Stiven Madsen MD LAB - BLOOD ORDERABLES Final Result Performing Organization Address City/[facility]/ZIP Co de Phone Number [facility] [address] [place] [address] [place] [address], [facility] * Extra Green Top (Cache Heparin) Tube (05/20/2024 9:09 AM GRINDING ROOM INSPECTOR) Pathologist [facility] Hold Specimen JI 05/20/2024 10:16 AM [facility] Blood VENOUS LINE / Unknown Venipuncture / Unknown 05/20/2024 9:09 AM GRINDING ROOM INSPECTOR 05/20/2024 9:14 AM GRINDING ROOM INSPECTOR Deshawn Arredondo MD LAB - BLOOD ORDERABLES Liss l Result Performing Organization Address [facility] Co de Phone Number [facility] [address] [place] [address] * (ABNORMAL) CBC with platelets and differential (05/20/2024 9:09 AM GRINDING ROOM INSPECTOR) WBC Count 16.0(H) 4.0 - 11.0 10e3/uL 05/20/2024 9:47 AM [facility] RBC Count 2.57(L) 3.80 - 5.20 10e6/uL 05/20/2024 9:47 AM [facility] Hemoglobin 8.4(L) 11.7 - 15.7 g/dL 05/20/2024 9:47 AM [facility] Hematocrit 23.7(L) 35.0 - 47.0 % 05/20/2024 9:47 AM [facility] MCV 92 78 - 100 fL 05/20/2024 9:47 AM [facility] MCH 32.7 26.5 - 33.0 pg 05/20/2024 9:47 AM [facility] MCHC 35.4 31.5 - 36.5 g/dL 05/20/2024 9:47 AM [facility] RDW 22.8(H) 10.0 - 15.0 % 05/20/2024 9:47 AM [facility] Platelet Count 541(H) 150 - 450 10e3/uL 05/20/2024 9:47 AM [facility] % Neutrophils 59 % 05/20/2024 9:47 AM [facility] % Lymphocytes 23 % 05/20/2024 9:47 AM [facility] % Monocytes 15 % 05/20/2024 9:47 AM [facility] % Eosinophils 2 % 05/20/2024 9:47 AM [facility] % Basophils 1 % 05/20/2024 9:47 AM [facility] % Immature Granulocytes 1 % 05/20/2024 9:47 AM [facility] NRBCs per 100 WBC 2(H) <1 /100 025 9:47 AM [facility] Absolute Neutrophils 9.4(H) 1.6 - 8.3 10e3/uL 05/20/2024 9:47 AM [facility] Absolute Lymphocytes 3.6 0.8 - 5.3 10e3/uL 05/20/2024 9:47 AM [facility] Absolute Monocytes 2.4(H) 0.0 - 1.3 10e3/uL 05/20/2024 9:47 AM [facility] Absolute Eosinophils 0.3 0.0 - 0.7 10e3/uL 05/20/2024 9:47 AM [facility] Absolute Basophils 0.2 0.0 - 0.2 10e3/uL 05/20/2024 9:47 AM [facility] Absolute Immature Granulocytes 0.2 <=0.4 10e3/uL 05/20/2024 9:47 AM [facility] Absolute NRBCs 0.2 10e3/uL 05/20/2024 9:47 AM [facility] Blood VENOUS LINE / Unknown Venipuncture / Unknown 05/20/2024 9:09 AM [facility] 05/20/2024 9:14 AM GRINDING ROOM INSPECTOR Stiven Madsen MD LAB - BLOOD ORDERABLES Final Result Performing Organization Address [facility] de Phone Number [facility] [address] [place] [address] * (ABNORMAL) Reticulocyte count (05/20/2024 9:09 AM GRINDING ROOM INSPECTOR) % Reticulocyte 25.1(H) 0.5 - 2.0 % 05/20/2024 9:19 AM [facility] Absolute Reticulocyte 0.646(H) 0.025 - 0.095 10e6/uL 05/20/2024 9:19 AM [facility] Blood VENOUS LINE / Unknown Venipuncture / Unknown 05/20/2024 9:09 AM GRINDING ROOM INSPECTOR 05/20/2024 9:14 AM GRINDING ROOM INSPECTOR Stiven Madsen MD LAB - BLOOD ORDERABLES Final Result Performing Organization Address [facility] de Phone Number [address] [place] [address], [facility] * (ABNORMAL) Basic metabolic panel (05/20/2024 8:21 AM [facility]) Pathologist [facility] Sodium 136 135 - 145 mmol/L 05/20/2024 8:47 AM [facility] Potassium 5.1 3.4 - 5.3 mmol/L 05/20/2024 8:47 AM [facility] Chloride 105 98 - 107 mmol/L 05/20/2024 8:47 AM [facility] Carbon Dioxide (CO2) 21(L) 22 - 29 mmol/L 05/20/2024 8:47 AM [facility] Anion Gap 10 7 - 15 mmol/L 05/20/2024 8:47 AM [facility] Urea Nitrogen 7.5 6.0 - 20.0 mg/dL 05/20/2024 8:47 AM [facility] Creatinine 0.84 0.51 - 0.95 mg/dL 05/20/2024 8:47 AM [facility] GFR Estimate >90 >60 mL/min/1.7 3m2 05/20/2024 8:47 AM [facility] Comment:eGFR calculated us2020 CKD-EPI equation. Calcium 9.1 8.8 - 10.4 mg/dL 05/20/2024 8:47 AM [facility] Comment:Reference intervals for this test were updated on 11/09/2023 to reflect our healthy population more accurately. There may be differences in the flagging of prior results with similar values performed with this method. Those prior results can be interpreted in the context of the updated reference intervals. Glucose 95 70 - 99 mg/dL 05/20/2024 8:47 AM GRINDING ROOM INSPECTOR [facility] Blood VENOUS LINE / Unknown Venipuncture / Unknown 05/20/2024 8:21 AM GRINDING ROOM INSPECTOR 05/20/2024 8:31 AM GRINDING ROOM INSPECTOR us Stiven Madsen MD LAB - BLOOD ORDERABLES Final Result Performing Organization Address [facility]/ZIP Co de Phone Number [facility] [address] [facility] [place] [address], [facility] * ECG 12-LEAD WITH MUSE (LHE) (05/20/2024 7:36 AM GRINDING ROOM INSPECTOR) Systolic Blood Pressure 111 mmHg RADIOLOGY RESULTS Diastolic Blood Pressure 56 mmHg RADIOLOGY RESULTS Ventricular Rate 86 BPM RAD IOLOGY RESULTS Atrial Rate 86 BPM RADIOLOG Y RESULTS PA Interval 154 ms RADIOLOG Y RESULTS QRS Duration 78 ms RADIOLO GY RESULTS QT 370 ms RADIOLOGY RESULTS QTc 442 ms RADIOLOGY RESULTS P Clyman 18 degrees RADIOLOGY RESULTS R AXIS 55 degrees RADIOLOGY RESULTS T Clyman 25 degrees RADIOLOGY RESULTS Interpretation ECG Sinus rhythm Nonspecific T wave abnormality Abnormal ECG When compared with ECG of 14-May-2024 22:12, Nonspecific T wave abnormality now evident in Inferior leads Confirmed by SEE ED PROVIDER NOTE FOR, ECG INTERPRETATION (4000), offline editor Neeraj Allison ([id number]) on 05/20/2024 7:48:17 AM RADIOLOGY RESULTS 05/20/2024 7:36 AM GRINDING ROOM INSPECTOR 05/20/2024 7:48 AM GRINDING ROOM INSPECTOR us Deshawn Arredondo MD ECG ORDERABLES [...] For 1 dose $Given 05/20/2024 9:59 AM GRINDING ROOM INSPECTOR 25 mg HYDROmorphone (DILAUDID) injection 2 mg 2 mg, Intravenous, EVERY HOUR, First dose on 05/20/24 at 0800, For 3 doses $Given 05/20/2024 10:58 AM GRINDING ROOM INSPECTOR 2 mg $Given 05/20/2024 9:56 AM GRINDING ROOM INSPECTOR 2 mg $Given 05/20/2024 8:22 AM GRINDING ROOM INSPECTOR 2 mg lactated ringers infusion at 500 mL/hr, Intravenous, CONTINUOUS, Starting on 05/20/24 at 0800, Until 05/20/24 at 0959 Restarted 05/20/2024 9:30 AM GRINDING ROOM INSPECTOR 500 mL/hr $New Bag 05/20/2024 8:22 AM GRINDING ROOM INSPECTOR 500 mL/hr ondansetron (ZOFRAN) injection 8 mg 8 mg, Intravenous, EVERY 6 HOURS PRN, nausea, vomiting, Administer over 2-5 Minutes, Starting on 05/20/24 at 0744 $Given 05/20/2024 8:22 AM GRINDING ROOM INSPECTOR 8 mg documented in this encounter Active and Recently Administered Medications Times are shown in GRINDING ROOM INSPECTOR. Scheduled Medication Order 05/18/2024 05/19/2024 05/20/2024 diphenhydrAMINE [...] RN) documented in this encounter Care Teams Kettle Chipper Relationship Specialty Start Date End Date No Ref-Primary, Physician PCP - General 03/15/24 06/17/24 Mor Ramsey Medical Student 04/03/24 Case Samuel MD [address] [place] [address], [address] [place] [address] Assigned Pediatric Specialist Provider 05/18/24 documented as of this encounter
--- OUTSIDE RECORDS SUMMARY | 2024-06-25 16:14 | XMS_ITS | Encounter Summary ---
Author Organization [facility] Address [address] [place] [address]. [place] [address] Care Team Providers Care Wilderness Guide Name Role Phone No Ref-Primary, Physician Primary Care Provider Mor Ramsey Unavailable Unavailable Case Samuel MD Unavailable [phone] Reason for Visit * Reason Comments Chest Pain Encounter Details Date Type Department Care Team (Late st Contact Info) Description 05/27/2024 11:58 AM SALES & SERVICE ASSOCIATE - 05/27/2024 6:07 PM [facility] Emergency [facility] Emergency Room [facility] [place] [phone] Blas Mcclellan MD [address] [place] [address] Marly Gross, DO [facility] [address] [place] [id number] Sickle cell disease with crisis (H) Discharge [...] on file Legal Sex Female 8:25 AM SALES & SERVICE ASSOCIATE Gender Identity Not on file Sexual Orientation Not on file documented as of this encounter Last Filed Vital Signs Vital Sign Reading Time Taken Comments Blood Pressure 123/76 05/27/2024 5:15 PM SALES & SERVICE ASSOCIATE Pulse 97 05/27/2024 5:15 PM SALES & SERVICE ASSOCIATE Temperature 36.9 C (98.5 F) 05/27/2024 11:57 AM SALES & SERVICE ASSOCIATE Respiratory Rate 24 05/27/2024 5:37 PM SALES & SERVICE ASSOCIATE Oxygen Saturation 96% 05/27/2024 5:15 PM SALES & SERVICE ASSOCIATE Inhaled Oxygen Concentration - - Weight 51.7 kg (114 lb) 05/27/2024 11:56 AM SALES & SERVICE ASSOCIATE Height 154.9 cm (5' 1) 05/27/2024 11:56 AM SALES & SERVICE ASSOCIATE Body Mass Index 21.54 05/27/2024 11:56 AM SALES & SERVICE ASSOCIATE documented in this encounter Discharge Instructions * Attachments The following attachments cannot be sent through Care Everywhere. * Sickle Cell Crisis (Yemeni) documented in this encounter Medications at Time [...] Hemoglobin 7.1. No [facility] Additional ED Course Timeline: 5:01 PM I introduced myself to the patient. She would like her last dose of dilaudid per care plan and is comfortable with being discharged home afterwards. She has follow up with her Western Philosophy Professor in2 days which I encouraged her to [...] on file Marly Gross DO Emergency Medicine [facility] EMERGENCY ROOM [address] [facility] [phone] Marly Gross DO 05/27/24 [id number] S & SERVICE ASSOCIATE * Blas Mcclellan MD - 05/27/2024 12:32 [...] Outpatient Record: [facility] ED 05/23/2024 and [facility] visit 05/25/2024 Care impacted by chronic illness:Documented in Chart Did you consider but not order tests?: Work up considered but not performed and documented in chart, if applicable Did you interpret images independently?: Independent interpretation of ECG and images noted in documentation, when applicable. Consultation discussion with other provider:Did you involve another provider (oracle wms consultant, , pharmacy, etc.)?: No Admission considered. 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 Per chart review, patient was seen by oncology at [facility] on 05/01/2024 for new outpatient hematology visit for initiation of care for sickle cell disease. [facility] [place] [place] [facility] She reported [...] had 2 ports placed on 05/25/2024 at [facility]. Apheresis on the right, 6 estonian smart port on the left. Patient tolerated [...] Currently Drug use: Never Social History Narrative [id number] mom. Recently moved to [place] from [place], [place]. She is 1 of 9 [...] Socially Integrated (03/28/2024) [facility] Do you often [...] was found. Rate: 91 bpm Rhythm: Sinus [place]: 39 62 23 DE Interval: 142 ms QRS Interval: 80 [...] my direction. Blas Mcclellan M.D. Emergency Medicine [facility] EMERGENCY ROOM [address] [place] [phone] Dept: [phone] Blas Mcclellan MD 05/27/24 1507 S & SERVICE ASSOCIATE * Yanely Avendano RN - 05/27/2024 12:02 [...] WDL Cognitive/Neuro/Behavioral WDL Cognitive/Neuro/Behavioral WDL WDL S & SERVICE ASSOCIATE documented in this encounter Plan of Treatment Not on file documented as of this encounter Goals Goal Patient Goal Type Associated Problems Recent Progress Patient-Stated? Author Pain Management General On track( 025 12:40 PM SALES & SERVICE ASSOCIATE) Yes Juhi Benson, RN Note: [...] MANUAL DIFFERENTIAL STAT 05/27/2024 3 :13 PM SALES & SERVICE ASSOCIATE CBC WITH PLATELETS AND DIFFERENTIAL STAT 05/27/2024 3:13 PM SALES & SERVICE ASSOCIATE CBC WITH PLATELETS & DIFFERENTIAL STAT 05/27/2024 3:13 PM SALES & SERVICE ASSOCIATE RETICULOCYTE COUNT STAT 05/27/2024 3: 13 PM SALES & SERVICE ASSOCIATE XR CHEST 2 VIEWS STAT 05/27/2024 2:57 PM SALES & SERVICE ASSOCIATE COMPREHENSIVE METABOLIC PANEL STAT 05/27/2024 2:30 PM SALES & SERVICE ASSOCIATE ECG 12-LEAD WITH MUSE SJN,SJO,WWH STAT 05/27/2024 12:12 PM SALES & SERVICE ASSOCIATE documented in this encounter Results * (ABNORMAL) Manual Differential (05/27/2024 3:13 PM SALES & SERVICE ASSOCIATE) Pathologist [facility] % Neutrophils 71 % JARET 05/27/2024 3:51 PM SALES & SERVICE ASSOCIATE [facility] % Lymphocytes 20 % JARET 05/27/2024 3:51 PM SALES & SERVICE ASSOCIATE [facility] % Monocytes 9 % JARET 05/27/2024 3:51 PM [facility] % Eosinophils 0 % JARET 05/27/2024 3:51 PM [facility] % Basophils 0 % JARET 05/27/2024 3:51 PM [facility] Absolute Neutrophils 11.1(H) 1.6 - 8.3 10e3/uL JARET 05/27/2024 3:51 PM [facility] Absolute Lymphocytes 3.1 0.8 - 5.3 10e3/uL JARET 05/27/2024 3:51 PM [facility] Absolute Monocytes 1.4(H) 0.0 - 1.3 10e3/uL JARET 05/27/2024 3:51 PM [facility] Absolute Eosinophils 0.0 0.0 - 0.7 10e3/uL JARET 05/27/2024 3:51 PM SALES & SERVICE ASSOCIATE [facility] Absolute Basophils 0.0 0.0 - 0.2 10e3/uL JARET 05/27/2024 3:51 PM [facility] RBC Morphology Confirmed RBC Indices JARET 05/27/2024 3:51 PM [facility] Platelet Assessment Automated Count Confirmed. Platelet morphology is normal. Automated Count Confirmed. Platelet morphology is normal. JARET 05/27/2024 3:51 PM [facility] Acanthocytes Slight(A) None Seen JARET 05/27/2024 3:51 PM [facility] Elliptocytes Slight(A) None Seen JARET 05/27/2024 3:51 PM [facility] RBC Fragments Slight(A) None Seen JARET 05/27/2024 3:51 PM [facility] Polychromasia Slight(A) None Seen JARET 05/27/2024 3:51 PM [facility] Sickle Cells Moderate(A) None Seen JARET 05/27/2024 3:51 PM [facility] Target Cells Slight(A) None Seen JARET 05/27/2024 3:51 PM [facility] Blood (Portacath) Venipuncture / Unknown 05/27/2024 3:13 PM SALES & SERVICE ASSOCIATE 05/27/2024 3:15 PM [facility] Blas Mcclellan MD LAB - BLOOD ORDERABLES Final Result [facility] [address] [place] [address], [facility] * (ABNORMAL) CBC with platelets and differential (05/27/2024 3:13 PM SALES & SERVICE ASSOCIATE) WBC Count 15.7(H) 4.0 - 11.0 10e3/uL 05/27/2024 3:48 PM [facility] RBC Count 2.21(L) 3.80 - 5.20 10e6/uL 05/27/2024 3:48 PM [facility] Hemoglobin 7.1(L) 11.7 - 15.7 g/dL 05/27/2024 3:48 PM [facility] Hematocrit 20.2(L) 35.0 - 47.0 % 05/27/2024 3:48 PM [facility] MCV 91 78 - 100 fL 05/27/2024 3:48 PM [facility] MCH 32.1 26.5 - 33.0 pg 05/27/2024 3:48 PM [facility] MCHC 35.1 31.5 - 36.5 g/dL 05/27/2024 3:48 PM [facility] RDW 23.0(H) 10.0 - 15.0 % 05/27/2024 3:48 PM [facility] Platelet Count 429 150 - 450 10e3/uL 05/27/2024 3:48 PM [facility] Blood (Portacath) Venipuncture / Unknown 05/27/2024 3:13 PM SALES & SERVICE ASSOCIATE 05/27/2024 3:15 PM [facility] us Blas Mcclellan MD LAB - BLOOD ORDERABLES Final Result [facility] [address] [place] [address], [facility] * (ABNORMAL) Reticulocyte count (05/27/2024 3:13 PM SALES & SERVICE ASSOCIATE) % Reticulocyte 28.0(H) 0.5 - 2.0 % 05/27/2024 3:19 PM SALES & SERVICE ASSOCIATE [facility] Absolute Reticulocyte 0.619(H) 0.025 - 0.095 10e6/uL 05/27/2024 3:19 PM SALES & SERVICE ASSOCIATE [facility] Blood (Portacath) Venipuncture / Unknown 05/27/2024 3:13 PM SALES & SERVICE ASSOCIATE 05/27/2024 3:15 PM SALES & SERVICE ASSOCIATE Blas Mcclellan MD LAB - BLOOD ORDERABLES Final Result [facility] [address] [place] [address], [facility] * Chest XR, PA & LAT (05/27/2024 2:57 PM SALES & SERVICE ASSOCIATE) Anatomical Region Laterality Modality Chest Digital Radiogra phy 05/27/2024 2:57 PM SALES & SERVICE ASSOCIATE Impressions 05/27/2024 3:03 PM SALES & SERVICE ASSOCIATE IMPRESSION: New right and left chest ports, with catheter tips at the superior cavoatrial junction. Unchanged patchy opacities in the right greater mid to lower lungs. No consolidation or pleural effusion. Stable mediastinal silhouette. Narrative 05/27/2024 3:03 PM SALES & SERVICE ASSOCIATE EXAM: XR CHEST 2 VIEWS LOCATION: [facility] DATE: 05/27/2024 INDICATION: chest pain, sickle cell, bilateral port placement 3 days ago COMPARISON: 05/22/2024 Procedure Note Rachel Joe MD - 05/27/2024 EXAM: XR CHEST 2 VIEWS LOCATION: [facility] DATE: 05/27/2024 INDICATION: chest pain, [...] (ABNORMAL) Comprehensive metabolic panel (05/27/2024 2:30 PM SALES & SERVICE ASSOCIATE) [facility] Sodium 136 135 - 145 mmol/L 05/27/2024 2:59 PM [facility] Potassium 4.8 3.4 - 5.3 mmol/L 05/27/2024 2:59 PM [facility] Carbon Dioxide (CO2) 18(L) 22 - 29 mmol/L 05/27/2024 2:59 PM [facility] Anion Gap 12 7 - 15 mmol/L 05/27/2024 2:59 PM [facility] Urea Nitrogen 8.4 6.0 - 20.0 mg/dL 05/27/2024 2:59 PM [facility] Creatinine 0.67 0.51 - 0.95 mg/dL 05/27/2024 2:59 PM [facility] GFR Estimate >90 >60 mL/min/1.7 3m2 05/27/2024 2:59 PM [facility] Comment:eGFR calculated us2020 CKD-EPI equation. Calcium 9.3 8.8 - 10.4 mg/dL 05/27/2024 2:59 PM [facility] Chloride 106 98 - 107 mmol/L 05/27/2024 2:59 PM [facility] Glucose 97 70 - 99 mg/dL 05/27/2024 2:59 PM [facility] Alkaline Phosphatase 94 40 - 150 U/L 05/27/2024 2:59 PM [facility] AST 51(H) 0 - 45 U/L 05/27/2024 2:59 PM [facility] ALT 19 0 - 50 U/L 05/27/2024 2:59 PM [facility] Protein Total 7.7 6.4 - 8.3 g/dL 05/27/2024 2:59 PM [facility] Albumin 4.4 3.5 - 5.2 g/dL 05/27/2024 2:59 PM [facility] Bilirubin Total 2.7(H) <=1.2 mg/dL 05/27/2024 2:59 PM [facility] Blood VENOUS LINE / Unknown Venipuncture / Unknown 05/27/2024 2:30 PM SALES & SERVICE ASSOCIATE 05/27/2024 2:36 PM [facility] Blas Mcclellan MD LAB - BLOOD ORDERABLES Final Result [facility] [address] [place] [address], [facility] * ECG 12-LEAD WITH MUSE (LHE) (05/27/2024 12:12 PM SALES & SERVICE ASSOCIATE) Systolic Blood Pressure 110 mmHg RADIOLOGY RESULTS Diastolic Blood Pressure 63 mmHg RADIOLOGY RESULTS Ventricular Rate 91 BPM RAD IOLOGY RESULTS Atrial Rate 91 BPM RADIOLOG Y RESULTS DE Interval 142 ms RADIOLOG Y RESULTS QRS Duration 80 ms RADIOLO GY RESULTS QT 352 ms RADIOLOGY RESULTS QTc 432 ms RADIOLOGY RESULTS P [place] 39 degrees RADIOLOGY RESULTS R AXIS 62 degrees RADIOLOGY RESULTS T [place] 23 degrees RADIOLOGY RESULTS Interpretation ECG Sinus rhythm Nonspecific T wave abnormality Abnormal ECG When compared with ECG of 23-May-2024 18:54, Nonspecific T wave abnormality now evident in Inferior leads Nonspecific T wave abnormality now evident in Anterior leads Confirmed by SEE ED PROVIDER NOTE FOR, ECG INTERPRETATION (4000), graphic editor BEN PRAKASH ([id number]) on 05/27/2024 12:22:37 PM RADIOLOGY RESULTS 05/27/2024 12:1 2 PM SALES & SERVICE ASSOCIATE 05/27/2024 12:22 PM SALES & SERVICE ASSOCIATE us Blas Mcclellan MD ECG ORDERABLES Edited [...] For 1 dose $Given 05/27/2024 4:34 PM SALES & SERVICE ASSOCIATE 25 mg heparin lock flush 100 unit/mL injection 5 mL 5 mL, Intracatheter, ONCE, On 05/27/24 at 1730, For 1 dose $Given 05/27/2024 5:33 PM SALES & SERVICE ASSOCIATE 5 mLs HYDROmorphone (DILAUDID) injection 2 mg 2 mg, Intravenous, ONCE, On 05/27/24 at 1300, For 1 dose $Given 05/27/2024 2:43 PM SALES & SERVICE ASSOCIATE 2 mg HYDROmorphone (DILAUDID) injection 2 mg 2 mg, Intravenous, ONCE, On 05/27/24 at 1630, For 1 dose $Given 05/27/2024 4:37 PM SALES & SERVICE ASSOCIATE 2 mg HYDROmorphone (DILAUDID) injection 2 mg 2 mg, Intravenous, ONCE, On 05/27/24 at 1730, For 1 dose $Given 05/27/2024 5:09 PM SALES & SERVICE ASSOCIATE 2 mg lactated ringers BOLUS 1,000 mL Intravenous, 1,000 mL, ONCE, On 05/27/24 at 1300, For 1 dose $New Bag 05/27/2024 2:33 PM SALES & SERVICE ASSOCIATE 1,000 mLs ondansetron (ZOFRAN) injection 8 mg 8 mg, Intravenous, ONCE, Administer over 2-5 Minutes, On 05/27/24 at 1300, For 1 dose $Given 05/27/2024 2:40 PM SALES & SERVICE ASSOCIATE 8 mg documented in this encounter Active and Recently Administered Medications Times are shown in SALES & SERVICE ASSOCIATE. Scheduled Medication Order 05/25/2024 05/26/2024 05/27/2024 diphenhydrAMINE [...] SOFIA) documented in this encounter Care Teams Wilderness Guide Relationship Specialty Start Date End Date No Ref-Primary, Physician PCP - General 03/15/24 06/17/24 Mor Ramsey Medical Student 04/03/24 Case Samuel MD [address] [place] [address] 484, [address] [place] [address] Assigned Pediatric Specialist Provider 05/18/24 documented as of this encounter
--- OUTSIDE RECORDS SUMMARY | 2024-06-25 16:14 | XMS_ITS | Encounter Summary ---
Author Organization [place] Address [address] [place] [address] Care Team Providers Care Leak Gang Supervisor Name Role Phone No Ref-Primary, Physician Primary Care Provider Mor Ramsey Unavailable Unavailable Reason for Visit * Reason Comments Sickle Cell Pain Crisis Encounter Details Date Type Department Care Team ([facility] st Contact Info) Description 05/16/2024 9:41 PM RIP TAILER - 05/17/2024 12:53 AM [facility] Emergency [facility] Emergency Room [facility] [place] [address] Guille Davis, DO [address] [place] [id number] Sickle cell pain crisis (H) Discharge [...] on file Legal Sex Female 8:25 AM RIP TAILER Gender Identity Not on file Sexual Orientation Not on file documented as of this encounter Last Filed Vital Signs Vital Sign Reading Time Taken Comments Blood Pressure 107/62 05/17/2024 12:00 AM RIP TAILER Pulse 93 05/17/2024 12:00 AM RIP TAILER Temperature 36.8 C (98.3 F) 05/16/2024 9:35 PM RIP TAILER Respiratory Rate 15 05/17/2024 12:00 AM RIP TAILER Oxygen Saturation 94% 05/17/2024 12:00 AM RIP TAILER Inhaled Oxygen Concentration - - Weight 52.2 kg (115 lb) 05/16/2024 9:35 PM RIP TAILER Height 154.9 cm (5' 1) 05/16/2024 9:35 PM RIP TAILER Body Mass Index 21.73 05/16/2024 9:35 PM RIP TAILER documented in this encounter Discharge Instructions * [...] being printed. States she doesn't need them. TAILER * Obie Schofield RN - 05/17/2024 12:16 AM CST Pt says she'll be good for discharge after this 3rd dose of Dilaudid. Provider notified. Pt is vitally stable and pain under control and ok with the plan of care. All questions were answered. TAILER * Obie Schofield RN - 05/16/2024 11:40 PM CST Pt received 2nd dose of Dilaudid. Pt says the 1st dose has helped with her pain, bringing it down to 7/10 from 9/10. She has relief from itchiness following Benadryl as well. Pt is resting in bed, onher phone, and denies other needs at this time. On continuous pulse ox. TAILER * Guille Davis DO - 05/16/2024 9:53 [...] Currently Drug use: Never Social History Narrative [id number] mom. Recently moved to [place] from [place], [place]. She is 1 of 9 [...] Social Connections: Socially Integrated (03/28/2024) Received from [facility] Social Connections Do you [...] the Xpert Xpress CoV2/Flu/RSV Assay on the [employer] Gene[employer]pert Instrument. This test should be ordered [...] management. This test was validated by the [facility]. These laboratories are certified under the Clinical Laboratory Improvement Amendments of 1988 (CLIA-88) as qualified to perfom high complexity laboratory testing. CBC with platelets + differential Narrative The following orders were created for panel order CBC with platelets + differential. Procedure Abnormality Status --------- ------ CBC with platelets and d...[[id number]] Abnormal Final result RBC and Platelet Morphology[[id number]] Abnormal Final result Please view results for [...] on file Guille Davis D.O. Emergency Medicine [facility] EMERGENCY ROOM [facility] [address] Dept: [phone] Guille Davis DO 05/17/24 0048 TAILER * Aminata Farley RN - 05/16/2024 9:37 [...] WDL WDL Cognitive/Neuro/Behavioral WDL Cognitive/Neuro/Behavioral WDL WDL [place] Coma Scale Best Eye Response 4-->(E4) spontaneous Best Motor Response 6-->(M6) obeys commands Best Verbal Response 5-->(V5) oriented Lester Coma Scale Score 15 TAILER documented in this encounter Plan of Treatment Not on file documented as of this encounter Goals Goal Patient Goal Type Associated Problems Recent Progress Patient-Stated? Author Pain Management General On track( 025 12:40 PM RIP TAILER) Yes Juhi Benson, RN Note: Goal Statement: [...] AND PLATELET MORPHOLOGY STAT 05/16/2024 10:17 PM RIP TAILER CBC WITH PLATELETS AND DIFFERENTIAL STAT 05/16/2024 10:17 PM RIP TAILER CBC WITH PLATELETS & DIFFERENTIAL STAT 05/16/2024 10:17 PM RIP TAILER BASIC METABOLIC PANEL STAT 05/16/2024 10:17 PM RIP TAILER INFLUENZA A/B, RSV AND SARS-COV2 PCR STAT 05/16/2024 10:00 PM RIP TAILER documented in this encounter Results * (ABNORMAL) RBC and Platelet Morphology (05/16/2024 10:17 PM RIP TAILER) Pathologist [facility] RBC Morphology Confirmed RBC Indices 05/16/2024 10:54 PM RIP TAILER [facility] Platelet Assessment Automated Count Confirmed. Platelet morphology is normal. Automated Count Confirmed. Platelet morphology is normal. JARET 05/16/2024 10:54 PM RIP TAILER [facility] Polychromasia Slight(A) None Seen JARET 05/16/2024 10:54 PM RIP TAILER [facility] Reactive Lymphocytes Present(A) None Seen JARET 05/16/2024 10:54 PM [facility] Sickle Cells Moderate(A) None Seen JARET 05/16/2024 10:54 PM RIP TAILER [facility] Target Cells Slight(A) None Seen JARET 05/16/2024 10:54 PM [facility] Blood BLOOD SPECIMEN / Unknown Venipuncture / Unknown 05/16/2024 10:17 PM RIP TAILER 05/16/2024 10:24 PM RIP TAILER Guille Davis DO LAB - BLOOD ORDERABLES Fin al Result [facility] [address] [facility] [place] [address], [facility] * (ABNORMAL) CBC with platelets and differential (05/16/2024 10:17 PM RIP TAILER) WBC Count 14.0(H) 4.0 - 11.0 10e3/uL 05/16/2024 10:50 PM [facility] RBC Count 2.40(L) 3.80 - 5.20 10e6/uL 05/16/2024 10:50 PM [facility] Hemoglobin 7.7(L) 11.7 - 15.7 g/dL 05/16/2024 10:50 PM [facility] Hematocrit 21.8(L) 35.0 - 47.0 % 05/16/2024 10:50 PM [facility] MCV 91 78 - 100 fL 05/16/2024 10:50 PM [facility] MCH 32.1 26.5 - 33.0 pg 05/16/2024 10:50 PM [facility] MCHC 35.3 31.5 - 36.5 g/dL 05/16/2024 10:50 PM [facility] RDW 22.4(H) 10.0 - 15.0 % 05/16/2024 10:50 PM [facility] Platelet Count 521(H) 150 - 450 10e3/uL 05/16/2024 10:50 PM [facility] % Neutrophils 55 % 05/16/2024 10:50 PM [facility] % Lymphocytes 25 % 05/16/2024 10:50 PM [facility] % Monocytes 16 % 05/16/2024 10:50 PM [facility] % Eosinophils 1 % 05/16/2024 10:50 PM [facility] % Basophils 1 % 05/16/2024 10:50 PM [facility] % Immature Granulocytes 1 % 05/16/2024 10:50 PM [facility] NRBCs per 100 WBC 2(H) <1 /100 025 10:50 PM [facility] Absolute Neutrophils 7.7 1.6 - 8.3 10e3/uL 05/16/2024 10:50 PM [facility] Absolute Lymphocytes 3.6 0.8 - 5.3 10e3/uL 05/16/2024 10:50 PM [facility] Absolute Monocytes 2.3(H) 0.0 - 1.3 10e3/uL 05/16/2024 10:50 PM [facility] Absolute Eosinophils 0.2 0.0 - 0.7 10e3/uL 05/16/2024 10:50 PM [facility] Absolute Basophils 0.1 0.0 - 0.2 10e3/uL 05/16/2024 10:50 PM [facility] Absolute Immature Granulocytes 0.1 <=0.4 10e3/uL 05/16/2024 10:50 PM [facility] Absolute NRBCs 0.3 10e3/uL 05/16/2024 10:50 PM [facility] Blood BLOOD SPECIMEN / Unknown Venipuncture / Unknown 05/16/2024 10:17 PM RIP TAILER 05/16/2024 10:24 PM RIP TAILER us Guille Davis DO LAB - BLOOD ORDERABLES Fin al Result [facility] [address] [facility] [place] [address], [place] * (ABNORMAL) Basic metabolic panel (05/16/2024 10:17 PM RIP TAILER) [facility] Sodium 138 135 - 145 mmol/L 05/16/2024 10:42 PM [facility] Potassium 4.3 3.4 - 5.3 mmol/L 05/16/2024 10:42 PM [facility] Chloride 105 98 - 107 mmol/L 05/16/2024 10:42 PM [facility] Carbon Dioxide (CO2) 22 22 - 29 mmol/L 05/16/2024 10:42 PM [facility] Anion Gap 11 7 - 15 mmol/L 05/16/2024 10:42 PM [facility] Urea Nitrogen 12.0 6.0 - 20.0 mg/dL 05/16/2024 10:42 PM [facility] Creatinine 0.80 0.51 - 0.95 mg/dL 05/16/2024 10:42 PM [facility] GFR Estimate >90 >60 mL/min/1.7 3m2 05/16/2024 10:42 PM [facility] Comment:eGFR calculated usin 2020 CKD-EPI equation. Calcium 8.7(L) 8.8 - 10.4 mg/dL 05/16/2024 10:42 PM [facility] Comment:Reference intervals for this test were updated on 11/09/2023 to reflect our healthy population more accurately. There may be differences in the flagging of prior results with similar values performed with this method. Those prior results can be interpreted in the context of the updated reference intervals. Glucose 118(H) 70 - 99 mg/dL 05/16/2024 10:42 PM [facility] Blood BLOOD SPECIMEN / Unknown Venipuncture / Unknown 05/16/2024 10:17 PM RIP TAILER 05/16/2024 10:24 PM [facility] us Guille Davis DO LAB - BLOOD ORDERABLES Fin al Result [facility] [address] [facility] [place] [address], [facility] * Influenza A/B, RSV and SARS-CoV2 PCR (COVID-19) Nasopharyngeal (05/16/2024 10:00 PM RIP TAILER) Influenza A PCR Negative Negative 05/16/2024 10:46 PM [facility] Influenza B PCR Negative Negative 05/16/2024 10:46 PM RIP TAILER [facility] RSV PCR Negative Negative 05/16/2024 10:46 PM RIP TAILER [facility] SARS CoV2 PCR Negative Negative 05/16/2024 10:46 PM RIP TAILER [facility] Comment:NEGATIVE: SARS-CoV-2 (COVID-19) RNA not detected, presumed negative. Swab NASOPHARYNGEAL STRUCTURE / Unknown Non-blood Collection / Unknown 05/16/2024 10:00 PM RIP TAILER 05/16/2024 10:02 PM RIP TAILER [facility] - 05/16/2024 10:46 PM RIP TAILER Testing was performed using the Xpert Xpress CoV2/Flu/RSV Assay on the [employer] Instrument. This test should be ordered for [...] management. This test was validated by the [facility]. These laboratories are certified under the Clinical Laboratory Improvement Amendments of 1988 (CLIA-88) as qualified to perfom high complexity laboratory testing. Guille Davis DO LAB - MICRO GENERAL ORDERA BLES Final Result [facility] [address] [facility] [place] [address], [facility] documented in this encounter Visit Diagnoses Diagnosis 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 documented in this encounter Administered Medications Inactive Administered Medications - up to 3 most recent administrations Medication Order MAR Action Action Date Dose Rate Site diphenhydrAMINE (BENADRYL) injection 50 mg 50 mg, Intravenous, ONCE, On Wed05/16/24 at 2200, For 1 dose $Given 05/16/2024 10:37 PM RIP TAILER 50 mg HYDROmorphone (DILAUDID) injection 1 mg 1 mg, Intravenous, ONCE, On Wed05/16/24 at 2200, For 1 dose $Given 05/16/2024 10:37 PM RIP TAILER 1 mg HYDROmorphone (DILAUDID) injection 1 mg 1 mg, Intravenous, ONCE, On Wed05/17/24 at 0000, For 1 dose $Given 05/16/2024 11:37 PM RIP TAILER 1 mg HYDROmorphone (DILAUDID) injection 1 mg 1 mg, Intravenous, ONCE, On Wed05/17/24 at 0030, For 1 dose $Given 05/17/2024 12:13 AM RIP TAILER 1 mg documented in this encounter Active and Recently Administered Medications Times are shown in RIP TAILER. Scheduled Medication Order 05/15/2024 05/16/2024 05/17/2024 diphenhydrAMINE [...] Out COVID-19 05/16/2024 05/16/2024 05/16/2024 10:46 PM RIP TAILER documented as of this encounter Care Teams Leak Gang Supervisor Relationship Specialty Start Date End Date No Ref-Primary, Physician PCP - General 03/15/24 06/17/24 Mor Ramsey Medical Student 04/03/24 documented as of this encounter
--- OUTSIDE RECORDS SUMMARY | 2024-06-25 16:14 | XMS_ITS | Encounter Summary ---
Author Organization [place] Address [address] [place] [address]. [place] [address] Care Team Providers Care Roastmaster Name Role Phone No Ref-Primary, Physician Primary Care Provider Mor Ramsey Unavailable Unavailable Case Samuel MD Unavailable [phone] Encounter Details Date Type Department Care Team [...] on file Legal Sex Female 8:25 AM AUDIO VIDEO TECHNICIAN Gender Identity Not on file Sexual Orientation Not on file documented as of this encounter Plan of Treatment Not on file documented as of this encounter Goals Goal Patient Goal Type Associated Problems Recent Progress Patient-Stated? Author Pain Management General On track( 025 12:40 PM AUDIO VIDEO TECHNICIAN) Yes Juhi Benson, RN Note: Goal [...] on filedocumented in this encounter Care Teams Roastmaster Relationship Specialty Start Date End Date No Ref-Primary, Physician PCP - General 03/15/24 06/17/24 Mor Ramsey Medical Student 04/03/24 Case Samuel MD [address] [place] [address], [address] [place] [address] Assigned Pediatric Specialist Provider 05/18/24 documented as of this encounter
--- OUTSIDE RECORDS SUMMARY | 2024-06-25 16:14 | XMS_ITS | Encounter Summary ---
Author Organization [place] Address [facility] [address] Care Team Providers Care Hobbing Press Operator Name Role Phone No Ref-Primary, Physician [...] on file Legal Sex Female 8:25 AM ULTRASOUND SONOGRAPHER Gender Identity Not on file Sexual Orientation Not on file documented as of this encounter Plan of Treatment Not on file documented as of this encounter Goals Goal Patient Goal Type Associated Problems Recent Progress Patient-Stated? Author Pain Management General On track( 025 12:40 PM ULTRASOUND SONOGRAPHER) Yes Juhi Benson, RN Note: Goal Statement: [...] Out COVID-19 05/16/2024 05/16/2024 05/16/2024 10:46 PM ULTRASOUND SONOGRAPHER documented as of this encounter Care Teams Hobbing Press Operator Relationship Specialty Start Date End Date No Ref-Primary, Physician PCP - General 03/15/24 06/17/24 Mor Ramsey Medical Student 04/03/24 documented as of this encounter
--- OUTSIDE RECORDS SUMMARY | 2024-06-25 16:14 | XMS_ITS | Encounter Summary ---
Author Organization [place] Address [facility] [place] [address] Care Team Providers Care Director Of Elementary Education Name Role Phone No Ref-Primary, Physician Primary [...] file Legal Sex Female 8:25 AM TIRE ROOM SUPERVISOR Gender Identity Not on file Sexual Orientation Not on file documented as of this encounter Plan of Treatment Not on file documented as of this encounter Goals Goal Patient Goal Type Associated Problems Recent Progress Patient-Stated? Author Pain Management General On track( 025 12:40 PM TIRE ROOM SUPERVISOR) Yes Juhi Benson, RN Note: Goal [...] filedocumented in this encounter Care Teams Director Of Elementary Education Relationship Specialty Start Date End Date No Ref-Primary, Physician PCP - General 03/15/24 06/17/24 Mor Ramsey Medical Student 04/03/24 documented as of this encounter
--- OUTSIDE RECORDS SUMMARY | 2024-06-25 16:14 | XMS_ITS | Encounter Summary ---
Author Organization [place] Address [address] [place] [address]. [place] [address] Care Team Providers Care Pressroom Worker Name Role Phone No Ref-Primary, Physician Primary Care Provider Mor Ramsey Unavailable Unavailable Case Samuel MD Unavailable [phone] Encounter Details Date Type Department Care Team (Late st Contact Info) Description 05/22/2024 MyC Medical Advice [facility] Interventional Radiology [address] [place] [address] Yadi Mahan, RN Social History [...] on file Legal Sex Female 8:25 AM BDC MANAGER Gender Identity Not on file Sexual Orientation Not on file documented as of this encounter Plan of Treatment Not on file documented as of this encounter Goals Goal Patient Goal Type Associated Problems Recent Progress Patient-Stated? Author Pain Management General On track( 025 12:40 PM BDC MANAGER) Yes Juhi Benson, SOFIA Note: Goal [...] on filedocumented in this encounter Care Teams Pressroom Worker Relationship Specialty Start Date End Date No Ref-Primary, Physician PCP - General 03/15/24 06/17/24 Mor Ramsey Medical Student 04/03/24 Case Samuel MD [address] [place] [address], [address] [place] [address] Assigned Pediatric Specialist Provider 05/18/24 documented as of this encounter
--- OUTSIDE RECORDS SUMMARY | 2024-06-25 16:14 | XMS_ITS | Encounter Summary ---
Author Organization [place] Address [address] [place] [address]. [place] [address] Care Team Providers Care Flat Bed Knitter Name Role Phone No Ref-Primary, Physician Primary Care Provider Mor Ramsey Unavailable Unavailable Case Samuel MD Unavailable [phone] Encounter Details Date Type Department Care Team [...] on file Legal Sex Female 8:25 AM FOOD CHEMIST Gender Identity Not on file Sexual Orientation Not on file documented as of this encounter Plan of Treatment Not on file documented as of this encounter Goals Goal Patient Goal Type Associated Problems Recent Progress Patient-Stated? Author Pain Management General On track( 025 12:40 PM FOOD CHEMIST) Yes Juhi Benson, RN Note: Goal Statement: [...] on filedocumented in this encounter Care Teams Flat Bed Knitter Relationship Specialty Start Date End Date No Ref-Primary, Physician PCP - General 03/15/24 06/17/24 Mor Ramsey Medical Student 04/03/24 Case Samuel MD [address] [place] [address], [address] [place] [address] Assigned Pediatric Specialist Provider 05/18/24 documented as of this encounter
--- OUTSIDE RECORDS SUMMARY | 2024-06-25 16:15 | XMS_ITS | Encounter Summary ---
Author Organization [place] Address [address] [place] [address]. [place] [address] Care Team Providers Care Customer Facilities Supervisor Name Role Phone No Ref-Primary, Physician Primary Care Provider Mor Ramsey Unavailable Unavailable Case Samuel MD Unavailable [phone] Encounter Details Date Type Department Care Team [...] on file Legal Sex Female 8:25 AM EQUIPMENT MAINTENANCE TECHNICIAN Gender Identity Not on file Sexual Orientation Not on file documented as of this encounter Plan of Treatment Not on file documented as of this encounter Goals Goal Patient Goal Type Associated Problems Recent Progress Patient-Stated? Author Pain Management General On track( 025 12:40 PM EQUIPMENT MAINTENANCE TECHNICIAN) Yes Juhi Benson, RN Note: Goal [...] on filedocumented in this encounter Care Teams Customer Facilities Supervisor Relationship Specialty Start Date End Date No Ref-Primary, Physician PCP - General 03/15/24 06/17/24 Mor Ramsey Medical Student 04/03/24 Case Samuel MD [address] [place] [address], [address] [place] [address] Assigned Pediatric Specialist Provider 05/18/24 documented as of this encounter
--- OUTSIDE RECORDS SUMMARY | 2024-06-25 16:15 | XMS_ITS | Encounter Summary ---
Author Organization [facility] Address [address] [place] [address]. [place] [address] Care Team Providers Care Digital Pre Press Operator Name Role Phone No Ref-Primary, Physician Primary Care Provider Mor Ramsey Unavailable Unavailable Case Samuel MD Unavailable +-[phone] Juhi Benson RN Unavailable Unavailable Reason for Visit * Reason Comments Sickle Cell Pain Crisis Encounter Details Date Type Department Care Team (Late st Contact Info) Description 06/01/2024 11:41 PM PRINCIPLE SOFTWARE ENGINEER - 06/02/2024 2:35 AM [facility] Emergency [facility] Emergency Room [address] [place] [address] Noel Pinzon MD [address] [place] [address] Sickle cell pain crisis (H) Discharge Disposition: [...] on file Legal Sex Female 8:25 AM PRINCIPLE SOFTWARE ENGINEER Gender Identity Not on file Sexual Orientation Not on file documented as of this encounter Last Filed Vital Signs Vital Sign Reading Time Taken Comments Blood Pressure 117/69 06/02/2024 2:15 AM PRINCIPLE SOFTWARE ENGINEER Pulse 73 06/02/2024 2:15 AM PRINCIPLE SOFTWARE ENGINEER Temperature 36.7 C (98.1 F) 06/01/2024 10:44 PM PRINCIPLE SOFTWARE ENGINEER Respiratory Rate 15 06/02/2024 2:00 AM PRINCIPLE SOFTWARE ENGINEER Oxygen Saturation 95% 06/02/2024 2:15 AM PRINCIPLE SOFTWARE ENGINEER Inhaled Oxygen Concentration - - Weight 54.4 kg (120 lb) 06/01/2024 10:44 PM PRINCIPLE SOFTWARE ENGINEER Height - - Body Mass Index 22.67 05/31/2024 9:39 PM PRINCIPLE SOFTWARE ENGINEER documented in this encounter Discharge Instructions * Discharge Instructions* Noel Pinzon MD - 06/02/2024 1:57 AM PRINCIPLE SOFTWARE ENGINEER Continue outpatient follow up and cares with your specialist. cell room supervisor your prescription for dilaudid tomorrow and take as directed. CIPLE SOFTWARE ENGINEER CIPLE SOFTWARE ENGINEER documented in this encounter Medications at [...] questions were answered. Vitally stable upon discharge. CIPLE SOFTWARE ENGINEER CIPLE SOFTWARE ENGINEER * Noel Pinzon MD - 06/01/2024 11:07 PM CST Emergency Department Encounter Evaluation Date & Time: No admission date for patient encounter. CHIEF COMPLAINT: Sickle Cell Pain Crisis Triage Note:PT is coming in tonight for a sickle cell crisis. Pt has been waiting for her pharmacy to fill her RX. They stated that pharmacy might have the RX tomorrow. No OTC medication TRACK PRODUCTION ENGINEER. ED COURSE & MEDICAL DECISION MAKING: Pt [...] history is provided by the patient. No english as a second language teacher was used. Gianna Hernández is a 29 [...] my direction. Noel Pinzon DO Emergency Medicine [facility] EMERGENCY ROOM 06/01/2024 11:07 PM Noel Pinzon MD 06/02/24 0236 CIPLE SOFTWARE ENGINEER * Aminata Farley, SOFIA - 06/01/2024 10:45 PM CST PT is coming in tonight for a sickle cell crisis. Pt has been waiting for her pharmacy to fill her RX. They stated that pharmacy might have the RX tomorrow. No OTC medication TRACK PRODUCTION ENGINEER. Triage Assessment (Adult) Row Name 06/01/24 2244 Triage Assessment Airway WDL WDL Respiratory WDL Respiratory WDL WDL Skin Circulation/Temperature WDL Skin Circulation/Temperature WDL WDL Cardiac WDL Cardiac WDL WDL Peripheral/Neurovascular WDL Peripheral Neurovascular WDL WDL Cognitive/Neuro/Behavioral WDL Cognitive/Neuro/Behavioral WDL WDL CIPLE SOFTWARE ENGINEER documented in this encounter Plan of Treatment Not on file documented as of this encounter Goals Goal Patient Goal Type Associated Problems Recent Progress Patient-Stated? Author Pain Management General On track( 025 12:40 PM PRINCIPLE SOFTWARE ENGINEER) Yes Juhi Benson, RN Note: [...] For 1 dose $Given 06/02/2024 1:17 AM PRINCIPLE SOFTWARE ENGINEER 50 mg heparin lock flush 10 [...] each port lumen $Given 06/02/2024 2:29 AM PRINCIPLE SOFTWARE ENGINEER 5 mLs HYDROmorphone (DILAUDID) injection 2 mg 2 mg, Intravenous, ONCE, On Citlali 06/01/24 at 2330, For 1 dose $Given 06/02/2024 12:07 AM PRINCIPLE SOFTWARE ENGINEER 2 mg HYDROmorphone (DILAUDID) injection 2 mg 2 mg, Intravenous, EVERY 1 HOUR PRN, severe pain, Starting on Wed06/01/24 at 2308, For 2 doses $Given 06/02/2024 2:17 AM PRINCIPLE SOFTWARE ENGINEER 2 mg $Given 06/02/2024 1:16 AM PRINCIPLE SOFTWARE ENGINEER 2 mg lactated ringers BOLUS 1,000 mL Intravenous, 1,000 mL, ONCE, On Citlali 06/01/24 at 2330, For 1 dose $New Bag 06/02/2024 12:06 AM PRINCIPLE SOFTWARE ENGINEER 1,000 mLs ondansetron (ZOFRAN) injection 8 mg 8 mg, Intravenous, ONCE, Administer over 2-5 Minutes, On Citlali 06/01/24 at 2330, For 1 dose $Given 06/02/2024 12:06 AM PRINCIPLE SOFTWARE ENGINEER 8 mg sodium chloride (PF) 0.9% [...] each port lumen. $Given 06/02/2024 12:12 AM PRINCIPLE SOFTWARE ENGINEER 20 mLs documented in this encounter Active and Recently Administered Medications Times are shown in PRINCIPLE SOFTWARE ENGINEER. Scheduled Medication Order 05/31/2024 06/01/2024 06/02/2024 [...] lumen documented in this encounter Care Teams Digital Pre Press Operator Relationship Specialty Start Date End Date No Ref-Primary, Physician PCP - General 03/15/24 06/17/24 Mor Ramsey Medical Student 04/03/24 Case Samuel MD [address] [place] [address] 484, [address] [place] [address] Assigned Pediatric Specialist Provider 05/18/24 Juhi Benson, RN Specialty Business Unit Manager Hematology & Oncology 05/29/24 documented as of this encounter
--- OUTSIDE RECORDS SUMMARY | 2024-06-25 16:15 | XMS_ITS | Encounter Summary ---
Author Organization [facility] Address [address] [place] [address]. [place] [address] Care Team Providers Care Drilling Fluids Specialist Name Role Phone No Ref-Primary, Physician Primary Care Provider Mor Ramsey Unavailable Unavailable Case Samuel MD Unavailable [phone] Juhi Benson RN Unavailable Unavailable Encounter Details [...] on file Legal Sex Female 8:25 AM MEDIA ASSOCIATE Gender Identity Not on file Sexual Orientation Not on file documented as of this encounter Plan of Treatment Not on file documented as of this encounter Goals Goal Patient Goal Type Associated Problems Recent Progress Patient-Stated? Author Pain Management General On track( 025 12:40 PM MEDIA ASSOCIATE) Yes Juhi Benson RN Note: Goal Statement: [...] on filedocumented in this encounter Care Teams Drilling Fluids Specialist Relationship Specialty Start Date End Date No Ref-Primary, Physician PCP - General 03/15/24 06/17/24 Mor Ramsey Medical Student 04/03/24 Case Samuel MD [address] [place] [address] 484, [address] [place] [address] Assigned Pediatric Specialist Provider 05/18/24 Juhi Benson RN Specialty Fur Storage Clerk Hematology & Oncology 05/29/24 documented as of this encounter
--- OUTSIDE RECORDS SUMMARY | 2024-06-25 16:15 | XMS_ITS | Encounter Summary ---
Author Organization [facility] Address [address] [place] [address]. [place] [address] Care Team Providers Care Site Interpreter Name Role Phone No Ref-Primary, Physician Primary Care Provider Mor Ramsey Unavailable Unavailable Case Samuel MD Unavailable [phone] Juhi Benson RN Unavailable Unavailable Encounter Details [...] file Legal Sex Female 8:25 AM MANAGER USER EXPERIENCE Gender Identity Not on file Sexual Orientation Not on file documented as of this encounter Plan of Treatment Not on file documented as of this encounter Goals Goal Patient Goal Type Associated Problems Recent Progress Patient-Stated? Author Pain Management General On track( 025 12:40 PM MANAGER USER EXPERIENCE) Yes Juhi Benson RN Note: Goal Statement: [...] on filedocumented in this encounter Care Teams Site Interpreter Relationship Specialty Start Date End Date No Ref-Primary, Physician PCP - General 03/15/24 06/17/24 Mor Ramsey Medical Student 04/03/24 Case Samuel MD [address] [place] [address] 484, [address] [place] [address] Assigned Pediatric Specialist Provider 05/18/24 Juhi Benson RN Specialty Resident Medical Officer Hematology & Oncology 05/29/24 documented as of this encounter
--- OUTSIDE RECORDS SUMMARY | 2024-06-25 16:15 | XMS_ITS | Encounter Summary ---
Author Organization [facility] Address [address] [place] [address] Care Team Providers Care Environmental Educator Name Role Phone No Ref-Primary, Physician Primary Care Provider Mor Ramsey Unavailable Unavailable Case Samuel MD Unavailable [phone] Juhi Benson RN Unavailable Unavailable Reason for Visit * Reason Comments Sickle Cell Pain Crisis Encounter Details Date Type Department Care Team (Late st Contact Info) Description 05/31/2024 9:56 PM RADAR TESTER - 06/01/2024 12:46 AM [facility] Emergency [facility] Emergency Room [facility] [place] [address] Carley Riggins MD [address] [address] Sickle cell pain crisis (H) Discharge Disposition: [...] on file Legal Sex Female 8:25 AM RADAR TESTER Gender Identity Not on file Sexual Orientation Not on file documented as of this encounter Last Filed Vital Signs Vital Sign Reading Time Taken Comments Blood Pressure 118/63 06/01/2024 12:41 AM RADAR TESTER Pulse 71 06/01/2024 12:41 AM RADAR TESTER Temperature 36.7 C (98 F) 05/31/2024 9:39 PM RADAR TESTER Respiratory Rate 20 05/31/2024 9:39 PM RADAR TESTER Oxygen Saturation 98% 06/01/2024 12:41 AM RADAR TESTER Inhaled Oxygen Concentration - - Weight 54.4 kg (120 lb) 05/31/2024 9:39 PM RADAR TESTER Height 154.9 cm (5' 1) 05/31/2024 9:39 PM RADAR TESTER Body Mass Index 22.67 05/31/2024 9:39 PM RADAR TESTER documented in this encounter Discharge Instructions * Attachments The following attachments cannot be sent through Care Everywhere. * Sickle Cell Crisis (Bangladeshi) documented in this encounter Medications at Time [...] her left chest. She recently moved to [place] from [place], and notes the difference in temperature may be exacerbating her symptoms. Patient denies any other complaints at this time. 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 Recently moved to [place] from [place], [place]. She is 1 of 9 [...] Social Connections: Socially Integrated (03/28/2024) [facility] Do you often feel [...] Automated Count Confirmed. Platelet morphology is normal. [place]is Cells Slight (*) Elliptocytes Slight (*) [place] Bodies Present (*) Polychromasia Slight (*) Sickle [...] my direction. Carley Riggins M.D. Emergency Medicine [facility] EMERGENCY ROOM [address] [facility] [id number] Dept: [phone] Carley Riggins MD 06/01/24 0048 R TESTER * Aminata Farley RN - 05/31/2024 9:40 PM CST Pt is coming in with a sickle cell crisis. Pt was unable to greens picker her medication d/t pharmacy needing to order it. Tylenol last at 1700 Ibuprofen last at 2100 Triage Assessment (Adult) Row Name 05/31/242139 Triage Assessment Airway WDL WDL Respiratory WDL Respiratory WDL WDL Skin Circulation/Temperature WDL Skin Circulation/Temperature WDL WDL Cardiac WDL Cardiac WDL WDL Peripheral/Neurovascular WDL Peripheral Neurovascular WDL WDL Cognitive/Neuro/Behavioral WDL Cognitive/Neuro/Behavioral WDL WDL R TESTER documented in this encounter Plan of Treatment Not on file documented as of this encounter Goals Goal Patient Goal Type Associated Problems Recent Progress Patient-Stated? Author Pain Management General On track( 025 12:40 PM RADAR TESTER) Yes Juhi Benson, RN Note: Goal Statement: [...] AND PLATELET MORPHOLOGY STAT 05/31/2024 10:21 PM RADAR TESTER CBC WITH PLATELETS AND DIFFERENTIAL STAT 05/31/2024 10:21 PM RADAR TESTER CBC WITH PLATELETS & DIFFERENTIAL STAT 05/31/2024 10:21 PM RADAR TESTER RETICULOCYTE COUNT STAT 05/31/2024 10 :21 PM RADAR TESTER BASIC METABOLIC PANEL STAT 05/31/2024 10:21 PM RADAR TESTER documented in this encounter Results * (ABNORMAL) RBC and Platelet Morphology (05/31/2024 10:21 PM RADAR TESTER) [facility] RBC Morphology Confirmed RBC Indices 05/31/2024 10:59 PM RADAR TESTER [facility] Platelet Assessment Automated Count Confirmed. Platelet morphology is normal. Automated Count Confirmed. Platelet morphology is normal. JARET 05/31/2024 10:59 PM RADAR TESTER [facility] Mary Cells Slight(A) None Seen JARET 05/31/2024 10:59 PM RADAR TESTER [facility] Elliptocytes Slight(A) None Seen JARET 05/31/2024 10:59 PM RADAR TESTER [facility] [place] Bodies Present(A) None Seen JARET 05/31/2024 10:59 PM RADAR TESTER [facility] Polychromasia Slight(A) None Seen JARET 05/31/2024 10:59 PM RADAR TESTER [facility] Sickle Cells Moderate(A) None Seen JARET 05/31/2024 10:59 PM RADAR TESTER [facility] Target Cells Slight(A) None Seen JARET 05/31/2024 10:59 PM RADAR TESTER [facility] Blood BLOOD SPECIMEN / Unknown Venipuncture / Unknown 05/31/2024 10:21 PM RADAR TESTER 05/31/2024 10:24 PM RADAR TESTER us Carley Riggins MD LAB - BLOOD ORDERABLES Liss plaza Result [facility] [address] [address], [facility] * (ABNORMAL) CBC with platelets and differential (05/31/2024 10:21 PM RADAR TESTER) [facility] WBC Count 15.4(H) 4.0 - 11.0 10e3/uL 05/31/2024 10:55 PM [facility] RBC Count 2.73(L) 3.80 - 5.20 10e6/uL 05/31/2024 10:55 PM [facility] Hemoglobin 8.9(L) 11.7 - 15.7 g/dL 05/31/2024 10:55 PM [facility] Hematocrit 24.8(L) 35.0 - 47.0 % 05/31/2024 10:55 PM [facility] MCV 91 78 - 100 fL 05/31/2024 10:55 PM [facility] MCH 32.6 26.5 - 33.0 pg 05/31/2024 10:55 PM [facility] MCHC 35.9 31.5 - 36.5 g/dL 05/31/2024 10:55 PM [facility] RDW 21.2(H) 10.0 - 15.0 % 05/31/2024 10:55 PM [facility] Platelet Count 399 150 - 450 10e3/uL 05/31/2024 10:55 PM [facility] % Neutrophils 56 % 05/31/2024 10:55 PM [facility] % Lymphocytes 27 % 05/31/2024 10:55 PM [facility] % Monocytes 14 % 05/31/2024 10:55 PM [facility] % Eosinophils 1 % 05/31/2024 10:55 PM [facility] % Basophils 1 % 05/31/2024 10:55 PM [facility] % Immature Granulocytes 1 % 05/31/2024 10:55 PM [facility] NRBCs per 100 WBC 2(H) <1 /100 025 10:55 PM [facility] Absolute Neutrophils 8.7(H) 1.6 - 8.3 10e3/uL 05/31/2024 10:55 PM [facility] Absolute Lymphocytes 4.2 0.8 - 5.3 10e3/uL 05/31/2024 10:55 PM [facility] Absolute Monocytes 2.2(H) 0.0 - 1.3 10e3/uL 05/31/2024 10:55 PM [facility] Absolute Eosinophils 0.2 0.0 - 0.7 10e3/uL 05/31/2024 10:55 PM [facility] Absolute Basophils 0.1 0.0 - 0.2 10e3/uL 05/31/2024 10:55 PM [facility] Absolute Immature Granulocytes 0.1 <=0.4 10e3/uL 05/31/2024 10:55 PM [facility] Absolute NRBCs 0.3 10e3/uL 05/31/2024 10:55 PM [facility] Blood BLOOD SPECIMEN / Unknown Venipuncture / Unknown 05/31/2024 10:21 PM RADAR TESTER 05/31/2024 10:24 PM [facility] us Carley Riggins MD LAB - BLOOD ORDERABLES Liss plaza Result [facility] [address] [place] [address], [facility] * (ABNORMAL) Basic metabolic panel (05/31/2024 10:21 PM [facility]) Sodium 133(L) 135 - 145 mmol/L 05/31/2024 10:46 PM [facility] Potassium 4.1 3.4 - 5.3 mmol/L 05/31/2024 10:46 PM [facility] Chloride 102 98 - 107 mmol/L 05/31/2024 10:46 PM [facility] Carbon Dioxide (CO2) 20(L) 22 - 29 mmol/L 05/31/2024 10:46 PM [facility] Anion Gap 11 7 - 15 mmol/L 05/31/2024 10:46 PM [facility] Urea Nitrogen 9.9 6.0 - 20.0 mg/dL 05/31/2024 10:46 PM [facility] Creatinine 0.70 0.51 - 0.95 mg/dL 05/31/2024 10:46 PM [facility] GFR Estimate >90 >60 mL/min/1.7 3m2 05/31/2024 10:46 PM [facility] Comment:eGFR calculated usin g 2020 CKD-EPI equation. Calcium 9.0 8.8 - 10.4 mg/dL 05/31/2024 10:46 PM [facility] Glucose 97 70 - 99 mg/dL 05/31/2024 10:46 PM RADAR TESTER [facility] Blood BLOOD SPECIMEN / Unknown Venipuncture / Unknown 05/31/2024 10:21 PM RADAR TESTER 05/31/2024 10:24 PM RADAR TESTER Carley Riggins MD LAB - BLOOD ORDERABLES Liss l Result Performing Organization Address [facility]/ZIP Co de Phone Number [facility] [address] [place] [address] PR[place] Munoz [address], [facility] * (ABNORMAL) Reticulocyte count (05/31/2024 10:21 PM RADAR TESTER) [facility] % Reticulocyte 22.7(H) 0.5 - 2.0 % 05/31/2024 10:45 PM RADAR TESTER [facility] Absolute Reticulocyte 0.631(H) 0.025 - 0.095 10e6/uL 05/31/2024 10:45 PM RADAR TESTER [facility] Blood BLOOD SPECIMEN / Unknown Venipuncture / Unknown 05/31/2024 10:21 PM RADAR TESTER 05/31/2024 10:24 PM RADAR TESTER Carley Riggins MD LAB - BLOOD ORDERABLES Liss l Result Performing Organization Address [facility] de Phone Number [facility] [address] [place] [address] [place] [address], [facility] documented in this encounter Visit Diagnoses Diagnosis 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 documented in this encounter Administered Medications Inactive Administered Medications - up to 3 most recent administrations Medication Order MAR Action Action Date Dose Rate Site diphenhydrAMINE (BENADRYL) capsule 25 mg 25 mg, Oral, ONCE, On Wed05/31/24 at 2300, For 1 dose $Given 05/31/2024 10:50 PM RADAR TESTER 25 mg heparin lock flush 100 unit/mL injection 100 Units 100 Units, Intracatheter, ONCE, On Wed06/01/24 at 0030, For 1 dose $Given 06/01/2024 12:39 AM RADAR TESTER 100 Units HYDROmorphone (DILAUDID) injection 2 mg 2 mg, Intravenous, EVERY 1 HOUR PRN, severe pain, Starting on Wed05/31/24 at 2143, For 3 doses $Given 06/01/2024 12:36 AM RADAR TESTER 2 mg $Given 05/31/2024 11:42 PM RADAR TESTER 2 mg $Given 05/31/2024 10:28 PM RADAR TESTER 2 mg lactated ringers infusion at 500 mL/hr, Intravenous, CONTINUOUS, Starting on Wed05/31/24 at 2200, Until Wed05/31/24 at 2359 $New Bag 05/31/2024 10:22 PM RADAR TESTER 500 mL/hr ondansetron (ZOFRAN) injection 8 mg 8 mg, Intravenous, ONCE, Administer over 2-5 Minutes, On Wed05/31/24 at 2200, For 1 dose $Given 05/31/2024 10:27 PM RADAR TESTER 8 mg documented in this encounter Active and Recently Administered Medications Times are shown in RADAR TESTER. Scheduled Medication Order 05/30/2024 05/31/2024 06/01/2024 diphenhydrAMINE (BENADRYL) capsule 25 mg (COMPLETED) 25 mg, Oral, ONCE, On Wed05/31/24 at 2300, For 1 dose 2250 ($Given - Provider: Sabrina Tionco, SOFIA) heparin lock flush 100 unit/mL injection [...] SOFIA) documented in this encounter Care Teams Environmental Educator Relationship Specialty Start Date End Date No Ref-Primary, Physician PCP - General 03/15/24 06/17/24 Roxy Mor Medical Student 04/03/24 Case Samuel MD [address] [place] [address] 484, [address] [place] [address] Assigned Pediatric Specialist Provider 05/18/24 Juhi Benson, SOFIA Specialty Gis Application Developer Hematology & Oncology 05/29/24 documented as of this encounter
--- OUTSIDE RECORDS SUMMARY | 2024-06-25 16:15 | XMS_ITS | Encounter Summary ---
Author Organization [facility] Address [address] [place] [address] Care Team Providers Care Sharepoint Net Developer Name Role Phone No Ref-Primary, Physician Primary Care Provider Mor Ramsey Unavailable Unavailable Case Samuel MD Unavailable [phone] Reason for Visit * Reason Comments Abdominal Pain ULQ Encounter Details Date Type Department Care Team (Late st Contact Info) Description 05/23/2024 9:03 PM HVAC DESIGNER - 05/23/2024 11:37 PM [facility] Emergency [facility] Emergency Room Critical access hospital[address] [place] [address] Marilia Summers MD [address] [place] [address] [id number] Sickle cell pain crisis (H); Leukocytosis, unspecified [...] on file Legal Sex Female 8:25 AM HVAC DESIGNER Gender Identity Not on file Sexual Orientation Not on file documented as of this encounter Last Filed Vital Signs Vital Sign Reading Time Taken Comments Blood Pressure 123/71 05/23/2024 9:53 PM HVAC DESIGNER Pulse 95 05/23/2024 9:53 PM HVAC DESIGNER Temperature 37.7 C (99.9 F) 05/23/2024 4:48 PM HVAC DESIGNER Respiratory Rate 18 05/23/2024 4:48 PM HVAC DESIGNER Oxygen Saturation 98% 05/23/2024 9:53 PM HVAC DESIGNER Inhaled Oxygen Concentration - - Weight 51.7 kg (114 lb) 05/23/2024 4:48 PM HVAC DESIGNER Height 154.9 cm (5' 1) 05/23/2024 4:48 PM HVAC DESIGNER Body Mass Index 21.54 05/23/2024 4:48 PM HVAC DESIGNER documented in this encounter Discharge Instructions * Discharge Instructions* Marilia Summers MD - 05/23/2024 10:34 PM HVAC DESIGNER Keep your appointment for your port in 2 days. Continue to work with oncology/hematology on pain control. The Lidoderm patch helps with the area of pain underneath your left breast on the chest wall, you can get [id number] muscle pain patches that have the same numbing medicine in them and put it on for 12 hours at a time to help with your discomfort. Obviously return to the emergency department as needed if you are having difficulty with breathing. DESIGNER * Attachments The following attachments cannot be sent through Care Everywhere. * Sickle Cell Crisis (Bahamian) documented in this encounter Medications at Time [...] /chest pain. Seen for similar last night DESIGNER * Marilia Summers MD - 05/23/2024 6:24 [...] she notes the plan discussed with the oncologist/mechanic helper is to do 3 times a week [...] of chest pain. Misti [facility] few[facility] ago and since that time has been seen in the emergency department greater than 40 times. She was seen here yesterday, May 21, 2019, , , , , 18, 13th, 12th, 11th, 10th, eighth, seventh twice, on the sixth she was seen by oncology at the [facility] forthe first time, also in the [...] CHEST PULMONARY EMBOLISM W CONTRAST LOCATION: [facility] DATE: 05/23/2024 INDICATION: patient with sickle cell. acute chest pain similar to pe in the past. COMPARISON: Chest x-ray 05/22/2024, CTA chest 05/04/2024 and 03/15/2024. Report of CT chest from [facility] from 03/13/2023 is also available. [...] Rate 77 BPM Atrial Rate 77 BPM MO Interval 160 ms QRS Duration 82 ms QT 362 ms QTc 409 ms P [place] 61 degrees R AXIS 92 degrees T [place] 49 degrees Interpretation ECG Sinus rhythm Rightward axis Borderline ECG When compared with ECG of 22-May-2024 15:14, Nonspecific T wave abnormality no longer evident in Inferior leads Confirmed by SEE ED PROVIDER NOTE FOR, ECG INTERPRETATION (4000), editor greeting card SELMA GARRISON ([id number]) on 05/23/2024 7:30:33 PM ECG: Performed at: 1854 Impression: nsr rate of 77, wandering baseline somewhat limits exam. R axis. Pr 160ms, qrs 82ms, qtc 409ms, prt axes 61 92 49. Compared to 05/22/[address] segments in inferior limb leads no longer present. I have independently reviewed and interpreted the EKS(s) documented above PROCEDURES: Procedures: [facility] Documentation Medical Decision Making Obtained [...] with other provider:Did you involve another provider (care consultant, , pharmacy, etc.)?: No Discharge. I prescribed additional prescription strength medication(s) as charted. See documentation for any additional details. MIPS: Not Applicable Marilia Summers MD Emergency Medicine [facility] EMERGENCY ROOM Marilia Summers MD 05/23/24 [id number] DESIGNER * Carmen Elkins RN - 05/23/2024 4:51 PM CST Pt arrives with c/o abdominal pain (ULQ). Pt seen here yesterday for the same pain and sickle cell pain. Reports feeling better when she left yesterday but now pain is back. Temp: 99.9 DESIGNER documented in this encounter Plan of Treatment Not on file documented as of this encounter Goals Goal Patient Goal Type Associated Problems Recent Progress Patient-Stated? Author Pain Management General On track( 025 12:40 PM HVAC DESIGNER) Yes Juhi Benson, SOFIA Note: Goal Statement: [...] EMBOLISM W CONTRAST STAT 05/23/2024 9:33 PM HVAC DESIGNER TROPONIN T, HIGH SENSITIVITY STAT 05/23/2024 9:02 PM HVAC DESIGNER RETICULOCYTE COUNT STAT 05/23/2024 9: 02 PM HVAC DESIGNER N TERMINAL PRO BNP OUTPATIENT STAT 05/23/2024 9:02 PM HVAC DESIGNER CBC WITH PLATELETS STAT 05/23/2024 9: 02 PM HVAC DESIGNER ECG 12-LEAD WITH MUSE SJN,SJO,WWH STAT 05/23/2024 6:54 PM HVAC DESIGNER documented in this encounter Results * CT Chest Pulmonary Embolism w Contrast (05/23/2024 9:33 PM HVAC DESIGNER) Anatomical Region Laterality Modality Chest, SUBRAD CT BODY, UMP CT CHEST Computed Tomography 05/23/2024 9:33 PM HVAC DESIGNER Impressions 05/23/2024 10:12 PM HVAC DESIGNER IMPRESSION: 1. Bilateral pulmonary nodules stable since [...] as noted above. Narrative 05/23/2024 10:12 PM HVAC DESIGNER EXAM: CT CHEST PULMONARY EMBOLISM W CONTRAST LOCATION: [facility] DATE: 05/23/2024 INDICATION: patient with sickle cell. acute chest pain similar to pe in the past. COMPARISON: Chest x-ray 05/22/2024, CTA chest 05/04/2024 and 03/15/2024. Report of CT chest from [facility] from 03/13/2023 is also available. TECHNIQUE: [...] CHEST PULMONARY EMBOLISM W CONTRAST LOCATION: [facility] DATE: 05/23/2024 INDICATION: patient with sickle cell. acute chest pain similar to pe inthe past. COMPARISON: Chest x-ray 05/22/2024, CTA chest 05/04/2024 and 03/15/2024.Report of CT chest from [facility] from 03/13/2023 is alsoavailable. TECHNIQUE: CT [...] terminal pro BNP outpatient (05/23/2024 9:02 PM HVAC DESIGNER) [facility] N Terminal Pro BNP Outpatient 74 [id number] - 450 pg/mL 05/23/2024 9:39 PM HVAC DESIGNER [facility] Comment: Reference range [...] Unknown Venipuncture / Unknown 05/23/2024 9:02 PM HVAC DESIGNER 05/23/2024 9:10 PM HVAC DESIGNER Marilia Summers MD LAB - BLOOD ORDERABLES Final Result Performing Organization Address City/[facility]/ZIP Co de Phone Number [facility] [address] [place] [address], [facility] * Troponin T, High Sensitivity (05/23/2024 9:02 PM HVAC DESIGNER) Troponin T, High Sensitivity <6 <=14 ng/L 05/23/2024 9:39 PM HVAC DESIGNER [facility] Comment: Either [...] Unknown Venipuncture / Unknown 05/23/2024 9:02 PM HVAC DESIGNER 05/23/2024 9:10 PM HVAC DESIGNER Marilia Summers MD LAB - BLOOD ORDERABLES Final Result Performing Organization Address [facility] Co de Phone Number [facility] [address] [place] [address], [facility] * (ABNORMAL) Reticulocyte count (05/23/2024 9:02 PM HVAC DESIGNER) % Reticulocyte 28.1(H) 0.5 - 2.0 % 05/23/2024 9:35 PM HVAC DESIGNER [facility] Absolute Reticulocyte 0.698(H) 0.025 - 0.095 10e6/uL 05/23/2024 9:35 PM HVAC DESIGNER [facility] Blood BLOOD SPECIMEN / Unknown Venipuncture / Unknown 05/23/2024 9:02 PM HVAC DESIGNER 05/23/2024 9:10 PM HVAC DESIGNER us Marilia Summers MD LAB - BLOOD ORDERABLES Final Result [facility] [address] [place] [id number], [facility] * (ABNORMAL) CBC (+ platelets, no diff) (05/23/2024 9:02 PM HVAC DESIGNER) WBC Count 17.2(H) 4.0 - 11.0 10e3/uL 05/23/2024 9:18 PM [facility] RBC Count 2.45(L) 3.80 - 5.20 10e6/uL 05/23/2024 9:18 PM [facility] Hemoglobin 7.9(L) 11.7 - 15.7 g/dL 05/23/2024 9:18 PM [facility] Hematocrit 22.4(L) 35.0 - 47.0 % 05/23/2024 9:18 PM [facility] MCV 91 78 - 100 fL 05/23/2024 9:18 PM [facility] MCH 32.2 26.5 - 33.0 pg 05/23/2024 9:18 PM [facility] MCHC 35.3 31.5 - 36.5 g/dL 05/23/2024 9:18 PM [facility] RDW 24.4(H) 10.0 - 15.0 % 05/23/2024 9:18 PM [facility] Platelet Count 519(H) 150 - 450 10e3/uL 05/23/2024 9:18 PM [facility] Blood BLOOD SPECIMEN / Unknown Venipuncture / Unknown 05/23/2024 9:02 PM HVAC DESIGNER 05/23/2024 9:10 PM HVAC DESIGNER us Marilia Summers MD LAB - BLOOD ORDERABLES Final Result [facility] [address] [place] [address], [facility] * ECG 12-LEAD WITH MUSE (LHE) (05/23/2024 6:54 PM HVAC DESIGNER) Systolic Blood Pressure mmHg RADIOLOGY RESULTS Diastolic Blood Pressure mmHg RADIOLOGY RESULTS Ventricular Rate 77 BPM RAD IOLOGY RESULTS Atrial Rate 77 BPM RADIOLOG Y RESULTS MO Interval 160 ms RADIOLOG Y RESULTS QRS Duration 82 ms RADIOLO GY RESULTS QT 362 ms RADIOLOGY RESULTS QTc 409 ms RADIOLOGY RESULTS P [place] 61 degrees RADIOLOGY RESULTS R AXIS 92 degrees RADIOLOGY RESULTS T [place] 49 degrees RADIOLOGY RESULTS Interpretation ECG Sinus rhythm Rightward axis Borderline ECG When compared with ECG of 22-May-2024 15:14, Nonspecific T wave abnormality no longer evident in Inferior leads Confirmed by SEE ED PROVIDER NOTE FOR, ECG INTERPRETATION (4000), editor greeting card SELMA GARRISON ([id number]) on 05/23/2024 7:30:33 PM RADIOLOGY RESULTS 05/23/2024 6:54 PM HVAC DESIGNER 05/23/2024 7:30 PM HVAC DESIGNER us Marilia Summers MD ECG ORDERABLES Edited [...] For 1 dose $Given 05/23/2024 10:03 PM HVAC DESIGNER 50 mg HYDROmorphone (DILAUDID) injection 2 mg 2 mg, Intravenous, EVERY 1 HOUR PRN, moderate pain, Starting on Wed05/23/24 at 2115, For 2 doses $Given 05/23/2024 10:21 PM HVAC DESIGNER 2 mg $Given 05/23/2024 9:18 PM HVAC DESIGNER 2 mg HYDROmorphone (DILAUDID) injection 2 mg 2 mg, Intravenous, ONCE, On Wed05/23/24 at 2330, For 1 dose $Given 05/23/2024 11:20 PM HVAC DESIGNER 2 mg iopamidol (ISOVUE-370) solution 75 mL 75 mL, Intravenous, ONCE, On Wed05/23/24 at 2130, For 1 dose $Given 05/23/2024 9:33 PM HVAC DESIGNER 75 mLs lactated ringers BOLUS 1,000 mL Intravenous, 1,000 mL, ONCE, On Wed05/23/24 at 2200, For 1 dose $New Bag 05/23/2024 10:05 PM HVAC DESIGNER 1,000 mLs Lidocaine (LIDOCARE) 4 % Patch [...] post injection. $Patch/Med Applied 05/23/2024 10:53 PM HVAC DESIGNER 1 patch Left Chest ondansetron (ZOFRAN) injection 8 mg 8 mg, Intravenous, ONCE PRN, nausea, vomiting, Administer over 2-5 Minutes, Starting on Wed05/23/24 at 2159, For 1 dose $Given 05/23/2024 10:07 PM HVAC DESIGNER 8 mg documented in this encounter Active and Recently Administered Medications Times are shown in HVAC DESIGNER. Scheduled Medication Order 05/21/2024 05/22/2024 05/23/2024 diphenhydrAMINE [...] RN) documented in this encounter Care Teams Sharepoint Net Developer Relationship Specialty Start Date End Date No Ref-Primary, Physician PCP - General 03/15/24 06/17/24 Mor Ramsey Medical Student 04/03/24 Case Samuel MD [address] [place] [address], [address] [place] [address] Assigned Pediatric Specialist Provider 05/18/24 documented as of this encounter
--- OUTSIDE RECORDS SUMMARY | 2024-06-25 16:15 | XMS_ITS | Encounter Summary ---
Author Organization [facility] Address [address] [place] [address]. [place] [address] Care Team Providers Care Instrument Maker Name Role Phone No Ref-Primary, Physician Primary Care Provider Mor Ramsey Unavailable Unavailable Case Samuel MD Unavailable [phone] Encounter Details Date Type Department Care Team [...] on file Legal Sex Female 8:25 AM ACCOUNTING OFFICE MANAGER Gender Identity Not on file Sexual Orientation Not on file documented as of this encounter Plan of Treatment Not on file documented as of this encounter Goals Goal Patient Goal Type Associated Problems Recent Progress Patient-Stated? Author Pain Management General On track( 025 12:40 PM ACCOUNTING OFFICE MANAGER) Yes Juhi Benson, RN Note: Goal [...] on filedocumented in this encounter Care Teams Instrument Maker Relationship Specialty Start Date End Date No Ref-Primary, Physician PCP - General 03/15/24 06/17/24 Mor Ramsey Medical Student 04/03/24 Case Samuel MD [address] [place] [address], [address] [place] [address] Assigned Pediatric Specialist Provider 05/18/24 documented as of this encounter
--- OUTSIDE RECORDS SUMMARY | 2024-06-25 16:15 | XMS_ITS | Encounter Summary ---
Author Organization [facility] Address [address] [place] [address]. [place] [address] Care Team Providers Care Deputy Sheriff/Investigator Name Role Phone No Ref-Primary, Physician Primary Care Provider Mor Ramsey Unavailable Unavailable Case Samuel MD Unavailable [phone] Juhi Benson RN Unavailable Unavailable Reason for Visit * Reason Onset Date Comments Refill Request 06/05/2024 Encounter Details Date Type Department Care Team (Late st Contact Info) Description 06/05/2024 MyC Refill [facility] [address] [place] [address] Case Samuel MD [address] [place] [address], [address] [place] [address] Refill Request Social History Tobacco [...] on file Legal Sex Female 8:25 AM REFUSE AND RECYCLING WORKER Gender Identity Not on file Sexual [...] fill date and by whom: Dr. Samuel RECRUITING CONSULTANT Reviewed: Yes Send to provider: Routed to dr. Samuel and ESTEVAN Reynaga SE AND RECYCLING WORKER documented in this encounter Plan of Treatment Not on file documented as of this encounter Goals Goal Patient Goal Type Associated Problems Recent Progress Patient-Stated? Author Pain Management General On track( 025 12:40 PM REFUSE AND RECYCLING WORKER) Yes Juhi Benson, SOFIA Note: Goal Statement: [...] crisis documented in this encounter Care Teams Deputy Sheriff/Investigator Relationship Specialty Start Date End Date No Ref-Primary, Physician PCP - General 03/15/24 06/17/24 Mor Ramsey Medical Student 04/03/24 Case Samuel MD [address] [place] [address], [address] [place] [address] Assigned Pediatric Specialist Provider 05/18/24 Juhi Benson, SOFIA Specialty Fixed Income Analyst Hematology & Oncology 05/29/24 documented as of this encounter
--- OUTSIDE RECORDS SUMMARY | 2024-06-25 16:15 | XMS_ITS | Encounter Summary ---
Author Organization [facility] Address [address] [place] [address]. [place] [address] Care Team Providers Care Dairy Scientist Name Role Phone No Ref-Primary, Physician Primary Care Provider Mor Ramsey Unavailable Unavailable Case Samuel MD Unavailable [phone] Encounter Details Date Type Department Care Team [...] on file Legal Sex Female 8:25 AM PURCHASING ADMINISTRATOR Gender Identity Not on file Sexual Orientation Not on file documented as of this encounter Plan of Treatment Not on file documented as of this encounter Goals Goal Patient Goal Type Associated Problems Recent Progress Patient-Stated? Author Pain Management General On track( 025 12:40 PM PURCHASING ADMINISTRATOR) Yes Juhi Benson, RN Note: Goal Statement: [...] on filedocumented in this encounter Care Teams Dairy Scientist Relationship Specialty Start Date End Date No Ref-Primary, Physician PCP - General 03/15/24 06/17/24 Mor Ramsey Medical Student 04/03/24 Case Samuel MD [address] [place] [address], [address] [place] [address] Assigned Pediatric Specialist Provider 05/18/24 documented as of this encounter
--- OUTSIDE RECORDS SUMMARY | 2024-06-25 16:15 | XMS_ITS | Encounter Summary ---
Author Organization [facility] Address [address] [place] [address]. [place] [address] Care Team Providers Care Gravity Meter Operator Name Role Phone No Ref-Primary, Physician Primary Care Provider Mor Ramsey Unavailable Unavailable Case Samuel MD Unavailable [phone] Juhi Benson RN Unavailable Unavailable Reason for Visit * Reason Comments Sickle Cell Pain Crisis Encounter Details Date Type Department Care Team (Late st Contact Info) Description 05/28/2024 11:56 PM BELT CONVEYOR DRIER - 05/29/2024 3:54 AM BELT CONVEYOR DRIER Emergency [facility] Emergency Room Formerly [facility] [place] [address] Lenin Smith MD [address] [place] [phone] Sickle cell disease with crisis (H) Discharge [...] on file Legal Sex Female 8:25 AM BELT CONVEYOR DRIER Gender Identity Not on file Sexual Orientation Not on file documented as of this encounter Last Filed Vital Signs Vital Sign Reading Time Taken Comments Blood Pressure 123/66 05/29/2024 3:15 AM BELT CONVEYOR DRIER Pulse 87 05/29/2024 3:15 AM BELT CONVEYOR DRIER Temperature 36.6 C (97.9 F) 05/29/2024 12:01 AM BELT CONVEYOR DRIER Respiratory Rate 18 05/29/2024 12:01 AM BELT CONVEYOR DRIER Oxygen Saturation 93% 05/29/2024 3:15 AM BELT CONVEYOR DRIER Inhaled Oxygen Concentration - - Weight 51.7 kg (114 lb) 05/29/2024 12:01 AM BELT CONVEYOR DRIER Height 154.9 cm (5' 1) 05/29/2024 12:01 AM BELT CONVEYOR DRIER Body Mass Index 21.54 05/29/2024 12:01 AM BELT CONVEYOR DRIER documented in this encounter Discharge Instructions * Attachments The following attachments cannot be sent through Care Everywhere. * Sickle Cell Crisis ([place]olivian) documented in this encounter Medications at Time [...] time. Patient comfortable and agrees with plan. CONVEYOR DRIER * Lenin Smith MD - 05/29/2024 12:17 [...] go home. Has an appointment with her accounting file clerk today. Willfollow-up then. No indication for transfusion [...] with other provider:Did you involve another provider (specification consultant, , pharmacy, etc.)?: No Discharge. No [...] information was obtained from: Patient Use of Freight Handler: N/A Gianna Hernández is a 29 year [...] daughters second birthdayand they walked around the [facility], patient believes she might have [...] home in stable condition. 05/25 Admission to [facility] for bilateral port placements with apheresis port on right and smart port on left. 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 Recently moved to [place] from [place], [place]. She is 1 of 9 [...] Social Connections: Socially Integrated (03/28/2024) Received from [facility] Social Connections Do you often [...] M.D. Emergency Medicine [facility] EMERGENCY ROOM Formerly [facility] [facility] [address] Dept: [phone] Lenin Smith MD 05/29/24 0412 CONVEYOR DRIER * Moy Stewart RN - 05/29/2024 12:02 [...] WDL WDL Cognitive/Neuro/Behavioral WDL Cognitive/Neuro/Behavioral WDL WDL CONVEYOR DRIER documented in this encounter Plan of Treatment Not on file documented as of this encounter Goals Goal Patient Goal Type Associated Problems Recent Progress Patient-Stated? Author Pain Management General On track( 025 12:40 PM BELT CONVEYOR DRIER) Yes Juhi Benson, SOFIA Note: Goal Statement: [...] MANUAL DIFFERENTIAL STAT 05/29/2024 1 2:53 AM BELT CONVEYOR DRIER CBC WITH PLATELETS AND DIFFERENTIAL STAT 05/29/2024 12:53 AM BELT CONVEYOR DRIER CBC WITH PLATELETS & DIFFERENTIAL STAT 05/29/2024 12:53 AM BELT CONVEYOR DRIER RETICULOCYTE COUNT STAT 05/29/2024 12 :53 AM BELT CONVEYOR DRIER documented in this encounter Results * (ABNORMAL) Manual Differential (05/29/2024 12:53 AM BELT CONVEYOR DRIER) % Neutrophils 54 % JARET 05/29/2024 1:58 AM BELT CONVEYOR DRIER [facility] % Lymphocytes 34 % JARET 05/29/2024 1:58 AM BELT CONVEYOR DRIER [facility] % Monocytes 10 % JARET 05/29/2024 1:58 AM BELT CONVEYOR DRIER [facility] % Eosinophils 1 % JARET [...] Automated Count Confirmed. Platelet morphology is normal. [facility] 05/29/2024 1:58 AM [facility] Polychromasia Moderate(A) None Seen JARET 05/29/2024 1:58 AM [facility] Sickle Cells Moderate(A) None Seen [facility] 05/29/2024 1:58 AM [facility] Blood VENOUS LINE / Unknown Venipuncture / Unknown 05/29/2024 12:53 AM [facility] 05/29/2024 12:58 AM [facility] us Lenin Smith MD LAB - BLOOD ORDERABLES Final Result [facility] [address] [place] [address], [facility] * (ABNORMAL) CBC with platelets and differential (05/29/2024 12:53 AM [facility]) [facility] WBC Count 15.6(H) 4.0 - 11.0 10e3/uL 05/29/2024 1:58 AM [facility] RBC Count 2.09(L) 3.80 - 5.20 10e6/uL 05/29/2024 1:58 AM [facility] Hemoglobin 6.7(LL) 11.7 - 15.7 g/dL 05/29/2024 1:58 AM [facility] Hematocrit 19.2(L) 35.0 - 47.0 % 05/29/2024 1:58 AM [facility] MCV 92 78 - 100 fL 05/29/2024 1:58 AM [facility] MCH 32.1 26.5 - 33.0 pg 05/29/2024 1:58 AM [facility] MCHC 34.9 31.5 - 36.5 g/dL 05/29/2024 1:58 AM [facility] RDW 23.0(H) 10.0 - 15.0 % 05/29/2024 1:58 AM [facility] Platelet Count 405 150 - 450 10e3/uL 05/29/2024 1:58 AM [facility] Blood VENOUS LINE / Unknown Venipuncture / Unknown 05/29/2024 12:53 AM BELT CONVEYOR DRIER 05/29/2024 12:58 AM [facility] Lenin Smith MD LAB - BLOOD ORDERABLES Final Result [facility] [address] [place] [address], [facility] * (ABNORMAL) Reticulocyte count (05/29/2024 12:53 AM BELT CONVEYOR DRIER) [facility] % Reticulocyte 28.6(H) 0.5 - 2.0 % 05/29/2024 1:27 AM [facility] Absolute Reticulocyte 0.616(H) 0.025 - 0.095 10e6/uL 05/29/2024 1:27 AM [facility] Blood VENOUS LINE / Unknown Venipuncture / Unknown 05/29/2024 12:53 AM BELT CONVEYOR DRIER 05/29/2024 12:58 AM BELT CONVEYOR DRIER us Lenin Smith MD LAB - BLOOD ORDERABLES Final Result [facility] [address] [place] [address], [facility] documented in this [...] For 1 dose $Given 05/29/2024 1:26 AM BELT CONVEYOR DRIER 25 mg heparin lock flush 10 unit/mL [...] each port lumen $Given 05/29/2024 3:38 AM BELT CONVEYOR DRIER 5 mLs HYDROmorphone (DILAUDID) injection 2 mg 2 mg, Intravenous, EVERY 1 HOUR PRN, severe pain, moderate pain, Starting on Wed05/29/24 at 0010, For 3 doses $Given 05/29/2024 3:37 AM BELT CONVEYOR DRIER 2 mg $Given 05/29/2024 2:37 AM BELT CONVEYOR DRIER 2 mg $Given 05/29/2024 1:19 AM BELT CONVEYOR DRIER 2 mg lactated ringers BOLUS 1,000 mL Intravenous, 1,000 mL, ONCE, at 1,000 mL/hr, Administer over 1 Hours, On Wed05/29/24 at 0030, For 1 dose $New Bag 05/29/2024 1:01 AM BELT CONVEYOR DRIER 1,000 mLs 1000 mL/hr sodium chloride (PF) 0.9% PF flush 10-20 mL 10-20 mL, Intracatheter, EVERY 1 MIN PRN, line flush, post meds or blood draw, to flush each lumen of the CVC Implanted port, Starting on Wed05/29/24 at 0008, 10 mL per port lumen post IV meds; 20 mL per port lumen post post blood draw. $Given 05/29/2024 3:37 AM BELT CONVEYOR DRIER 10 mLs sodium chloride (PF) 0.9% PF [...] Recently Administered Medications Times are shown in BELT CONVEYOR DRIER. Scheduled Medication Order 05/27/2024 05/28/2024 05/29/2024 diphenhydrAMINE [...] lumen documented in this encounter Care Teams Gravity Meter Operator Relationship Specialty Start Date End Date No Ref-Primary, Physician PCP - General 03/15/24 06/17/24 Mor Ramsey Medical Student 04/03/24 Case Samuel MD [address] [place] [address], [address] [place] [address] Assigned Pediatric Specialist Provider 05/18/24 Juhi Benson, RN Specialty [employer] Hematology & Oncology 05/29/24 documented as of this encounter
--- OUTSIDE RECORDS SUMMARY | 2024-06-25 16:15 | XMS_ITS | Encounter Summary ---
Author Organization [facility] Address [address] [place] [address]. [place] [address] Care Team Providers Care Site Head Name Role Phone No Ref-Primary, Physician Primary Care Provider Mor Ramsey Unavailable Unavailable Case Samuel MD Unavailable [phone] Juhi Benson RN Unavailable Unavailable Encounter Details Date Type Department Care Team (Late st Contact Info) Description 05/29/2024 Orders Only [facility] [address] [place] [address] Juhi Benson, SOFIA Sickle cell [...] on file Legal Sex Female 8:25 AM BRIAR SHOP SUPERVISOR Gender Identity Not on file Sexual Orientation Not on file documented as of this encounter Plan of Treatment Not on file documented as of this encounter Goals Goal Patient Goal Type Associated Problems Recent Progress Patient-Stated? Author Pain Management General On track( 025 12:40 PM BRIAR SHOP SUPERVISOR) Yes Juhi Benson RN Note: Goal Statement: [...] crisis documented in this encounter Care Teams Site Head Relationship Specialty Start Date End Date No Ref-Primary, Physician PCP - General 03/15/24 06/17/24 Mor Ramsey Medical Student 04/03/24 Case Samuel MD [address] [place] [address] [address], [address] [place] [address] Assigned Pediatric Specialist Provider 05/18/24 Juhi Benson, RN Specialty Service Rig Operator Hematology & Oncology 05/29/24 documented as of this encounter
--- OUTSIDE RECORDS SUMMARY | 2024-06-25 16:15 | XMS_ITS | Encounter Summary ---
Author Organization [facility] Address [address] [place] [address]. [place] [address] Care Team Providers Care Senior Care Provider Name Role Phone No Ref-Primary, Physician Primary Care Provider Mor Ramsey Unavailable Unavailable Case Samuel MD Unavailable [phone] Juhi Benson RN Unavailable Unavailable Reason for Visit * Reason Comments Sickle Cell Pain Crisis Chest Pain Encounter Details Date Type Department Care Team (Late st Contact Info) Description 06/05/2024 11:41 AM RENDERER - 06/05/2024 3:28 PM [facility] Emergency Room [address] [place] [address] Stiven Madsen MD [address], [place] [address] Star Gifford MD [address] [place], [place] [id number] Sickle cell pain crisis (H) Discharge Disposition: [...] on file Legal Sex Female 8:25 AM RENDERER Gender Identity Not on file Sexual Orientation Not on file documented as of this encounter Last Filed Vital Signs Vital Sign Reading Time Taken Comments Blood Pressure 114/67 06/05/2024 3:00 PM RENDERER Pulse 74 06/05/2024 3:00 PM RENDERER Temperature 36.8 C (98.3 F) 06/05/2024 11:37 AM RENDERER Respiratory Rate 18 06/05/2024 11:37 AM RENDERER Oxygen Saturation 99% 06/05/2024 3:00 PM RENDERER Inhaled Oxygen Concentration - - Weight 52.2 kg (115 lb) 06/05/2024 11:37 AM RENDERER Height 154.9 cm (5' 1) 06/05/2024 11:37 AM RENDERER Body Mass Index 21.73 06/05/2024 11:37 AM RENDERER documented in this encounter Discharge Instructions * Discharge Instructions* Stiven Madsen MD - 06/05/2024 12:59 PM RENDERER You were seen in the emergency department for a pain crisis. You were given medications and IV fluids. Please continue to follow-up with your established tongue and quarter stitcher after this ED visit. ERER documented in this encounter Medications at Time [...] as of this encounter ED Notes * Stievn Madsen MD - 06/05/2024 11:54 AM CST [...] with other provider:Did you involve another provider (solar sales consultant, , pharmacy, etc.)?: No Discharge. No recommendations on prescription strength medication(s). See documentation for any additional details. MIPS: Not Applicable MEDICATIONS GIVEN IN THE EMERGENCY: Medications lactated ringers infusion (0 mLs Intravenous Stopped 06/05/24 1036) ondansetron (ZOFRAN) injection 8 mg (8 mg Intravenous $Given 06/05/24 1236) diphenhydrAMINE (BENADRYL) capsule 25 mg (25 mg Oral $Given 06/05/24 1240) NEW PRESCRIPTIONS STARTED AT TODAY'S ER VISIT Discharge Medication List as of 06/05/2024 3:28 PM HPI Patient information was obtained from: Patient Use of Irrigationist Designer: N/A Gianna Hernández is a 29 year [...] Per chart review, patient was seen at [facility] ED for sickle cell pain crisis on 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 Recently moved to [place] from [place], [place]. She is 1 of 9 [...] Social Connections: Socially Integrated (03/28/2024) Received from [facility] Social Connections Do you often [...] abnormality. Rate: 88 BPM Rhythm: Sinus rhythm Red House: 81 NM Interval: 148 ms QRS Interval: 82 ms [...] direction. Stiven Madsen M.D. Emergency Medicine [facility] EMERGENCY ROOM [address] [facility] [id number] Dept: [phone] Stiven Madsen MD 06/05/24 1433 Stiven Madsen MD 06/05/24 1938 ERER ERER * Jose Ramon Sims, SOFIA - 06/05/2024 [...] WDL WDL Cognitive/Neuro/Behavioral WDL Cognitive/Neuro/Behavioral WDL WDL ERER documented in this encounter Plan of Treatment Not on file documented as of this encounter Goals Goal Patient Goal Type Associated Problems Recent Progress Patient-Stated? Author Pain Management General On track( 025 12:40 PM RENDERER) Yes Juhi Benson, RN Note: Goal Statement: [...] MUSE JEREMIAS HORVATH,WWRocio STAT 06/05/2024 11:40 AM RENDERER documented in this encounter Results * ECG 12-LEAD WITH MUSE (LHE) (06/05/2024 11:40 AM RENDERER) Systolic Blood Pressure mmHg RADIOLOGY RESULTS Diastolic Blood Pressure mmHg RADIOLOGY RESULTS Ventricular Rate 88 BPM RAD IOLOGY RESULTS Atrial Rate 88 BPM RADIOLOG Y RESULTS NM Interval 148 ms RADIOLOG Y RESULTS QRS Duration 82 ms RADIOLO GY RESULTS QT 388 ms RADIOLOGY RESULTS QTc 469 ms RADIOLOGY RESULTS P Red House 43 degrees RADIOLOGY RESULTS R AXIS 81 degrees RADIOLOGY RESULTS T Red House 57 degrees RADIOLOGY RESULTS Interpretation ECG Sinus rhythm Nonspecific T wave abnormality Prolonged QT Abnormal ECG When compared with ECG of 03-Jun-2024 15:24, No significant change was found Confirmed by SEE ED PROVIDER NOTE FOR, ECG INTERPRETATION (4000), editor in chief newspaper Ariadna Shabazz ([id number]) on 06/05/2024 12:02:47 PM RADIOLOGY RESULTS 06/05/2024 11:4 0 AM RENDERER 06/05/2024 12:02 PM RENDERER us Stiven Madsen MD ECG ORDERABLES Edited [...] For 1 dose $Given 06/05/2024 12:40 PM RENDERER 25 mg heparin lock flush 10 unit/mL [...] for each lumen $Given 06/05/2024 3:20 PM RENDERER 5 mLs HYDROmorphone (DILAUDID) injection 2 mg 2 mg, Intravenous, EVERY 1 HOUR PRN, moderate pain, severe pain, Starting on Wed06/05/24 at 1153 $Given 06/05/2024 2:56 PM RENDERER 2 mg $Given 06/05/2024 1:54 PM RENDERER 2 mg $Given 06/05/2024 12:40 PM RENDERER 2 mg lactated ringers infusion at 500 mL/hr, Intravenous, CONTINUOUS, Starting on Wed06/05/24 at 1200, Until Wed06/05/24 at 1359 $New Bag 06/05/2024 12:39 PM RENDERER 500 mL/hr ondansetron (ZOFRAN) injection 8 mg 8 mg, Intravenous, ONCE, Administer over 2-5 Minutes, On Wed06/05/24 at 1200, For 1 dose $Given 06/05/2024 12:39 PM RENDERER 8 mg documented in this encounter Active and Recently Administered Medications Times are shown in RENDERER. Scheduled Medication Order 06/03/2024 06/04/2024 06/05/2024 ondansetron [...] RN) documented in this encounter Care Teams Senior Care Provider Relationship Specialty Start Date End Date No Ref-Primary, Physician PCP - General 03/15/24 06/17/24 Mor Ramsey Medical Student 04/03/24 Case Samuel MD [address] [place] [address] [address], [address] [place] [address] Assigned Pediatric Specialist Provider 05/18/24 Juhi Benson, SOFIA Specialty Spanish Instructor Hematology & Oncology 05/29/24 documented as of this encounter
--- OUTSIDE RECORDS SUMMARY | 2024-06-25 16:15 | XMS_ITS | Encounter Summary ---
Author Organization [facility] Address [facility] [place] [address] Care Team Providers Care Silk Worker Name Role Phone No Ref-Primary, Physician Primary Care Provider Mor Ramsey Unavailable Unavailable Case Samuel MD Unavailable [phone] Juhi Benson RN Unavailable Unavailable Reason for Referral * Mental Health Outpatient (Urgent: 3-5 Days) - Pending Review Specialty Diagnoses / Procedures Referred By Contac t Referred To Contact Behavioral Health Diagnoses Severe episode of recurrent major depressive disorder, without psychotic features (H) Case Samuel MD [address] [facility] [address], [address] [place] [address] Phone: tel: fax: Referral ID Status Reason Start Date Expiration Date V isits Requested Visits Authorized [id number] Pending Review 05/29/2024 05/29/2025 1 1 Question Answer Services: Assess/Evaluate for appropriate service (non-medication assessment) My Clinical Question Is: History of chronic pain with depression as major component combined with sickle cell disease and difficulty adjusting to [place]. Requesting evaluation for mental health diagnosis and management. Patient Scheduling Instructions: [facility] will call you to coordinate your care as prescribed by your provider. If you don't hear from a reimbursement representative within 2 business days, please call [...] plan with any benefit or coverage questions. [facility] will call you to coordinate your care as prescribed by your provider. If you don't hear from a reimbursement representative within 2 business days, please call . TUCKER Reason for Visit * Reason Comments Port Draw Labs drawn via port by RN in lab, vitals taken. Oncology Clinic Visit RTN Sickle cell Encounter Details Date Type Department Care Team (Late st Contact Info) Description 05/29/2024 11:30 AM AIR TUCKER Oncology Visit [facility] [address] [place] [address] Case Samuel MD [address] [place] [address] 484, [address] [place], [place] [id number] Severe episode of recurrent major depressive disorder, [...] on file Legal Sex Female 8:25 AM AIR TUCKER Gender Identity Not on file Sexual Orientation Not on file documented as of this encounter Last Filed Vital Signs Vital Sign Reading Time Taken Comments Blood Pressure 98/67 05/29/2024 11:09 AM AIR TUCKER Pulse 106 05/29/2024 11:09 AM AIR TUCKER Temperature 37.1 C (98.7 F) 05/29/2024 11:09 AM AIR TUCKER Respiratory Rate 18 05/29/2024 11:09 AM AIR TUCKER Oxygen Saturation 96% 05/29/2024 11:09 AM AIR TUCKER Inhaled Oxygen Concentration - - Weight 54.6 kg (120 lb 6.4 oz) 05/29/2024 11:09 AM AIR TUCKER Height - - Body Mass Index 22.75 05/29/2024 12:01 AM AIR TUCKER documented in this encounter Progress Notes * [...] She said that she was born in [place] but moved throughout her childhood because her dad was in the . She is the youngest of 9 children she said, though she is the only one with sickle cell disease. Among other places, she was living in [place] for a time and then moved to [place]. It was there that shemet her boyfriend. She ultimately moved back to [place] and he came with her. It was there that they had a daughter Chanda, now 2 years old. That was a difficult for her, and she feelslike she never wants to be again. She was living in [place], [place] and receiving care at [facility], though she did not get the sense that cash management associate there was super comfortable with sickle cell [...] about 3 weeks ago. She moved to [place] about 2 months ago. Her boyfriend is [...] them both so she can be a [id number] mom. Sickle Cell Disease Comprehensive Checklist Stroke/silent [...] titrate as needed and notify the primary cash management associate via [employer] message if changes to the plan below are needed. Also please note that there is a mental health component to her pain, particularly in terms of adjustment to [place] which is likely to make her pain worse.. 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 She is 1 of 9 [...] Social Connections: Socially Integrated (03/28/2024) [facility] Do you often feel [...] Rate 86 BPM Atrial Rate 86 BPM PA Interval 154 ms QRS Duration 78 ms QT 370 ms QTc 442 ms P [place] 18 degrees R AXIS 55 degrees T [place] 25 degrees Interpretation ECG Sinus rhythm Nonspecific T wave abnormality Abnormal ECG When compared with ECG of 14-May-2024 22:12, Nonspecific T wave abnormality now evident in Inferior leads Confirmed by SEE ED PROVIDER NOTE FOR, ECG INTERPRETATION (4000), graphic editor Neeraj Allison ([id number]) on 05/20/2024 7:48:17 AM Basic metabolic panel [...] Absolute NRBCs 0.2 10e3/uL Extra Green Top ([place] Heparin) Tube Collection Time: 05/20/24 9:09 AM Result Value Ref Range Hold Specimen [facility] Basic metabolic panel Collection Time: 05/20/24 [...] Rate 103 BPM Atrial Rate 103 BPM PA Interval 124 ms QRS Duration 80 ms QT 316 ms QTc 413 ms P [place] 82 degrees R AXIS 90 degrees T [place] 70 degrees Interpretation ECG Sinus tachycardia Rightward axis Borderline ECG When compared with ECG of 20-May-2024 07:36, Nonspecific T wave abnormality no longer evident in Anterior leads Confirmed by SEE ED PROVIDER NOTE FOR, ECG INTERPRETATION (4000), graphic editor Leticia Warner ([id number]) on 05/22/2024 4:13:58 PM Basic metabolic panel [...] None Seen Elliptocytes Slight (A) None Seen [place] Bodies Present (A) None Seen Polychromasia Slight (A) None Seen RBC Fragments Slight (A) None Seen Sickle Cells Moderate (A) None Seen Target Cells Slight (A) None Seen ECG 12-LEAD WITH MUSE (LHE) Collection Time: 05/23/24 6:54 PM Result Value Ref Range Systolic Blood Pressure mmHg Diastolic Blood Pressure mmHg Ventricular Rate 77 BPM Atrial Rate 77 BPM PA Interval 160 ms QRS Duration 82 ms QT 362 ms QTc 409 ms P [place] 61 degrees R AXIS 92 degrees T [place] 49 degrees Interpretation ECG Sinus rhythm Rightward axis Borderline ECG When compared with ECG of 22-May-2024 15:14, Nonspecific T wave abnormality no longer evident in Inferior leads Confirmed by SEE ED PROVIDER NOTE FOR, ECG INTERPRETATION (4000), graphic editor SELMA GARRISON ([id number]) on 05/23/2024 7:30:33 PM CBC (+ platelets, [...] Rate 91 BPM Atrial Rate 91 BPM PA Interval 142 ms QRS Duration 80 ms QT 352 ms QTc 432 ms P [place] 39 degrees R AXIS 62 degrees T [place] 23 degrees Interpretation ECG Sinus rhythm Nonspecific T wave abnormality Abnormal ECG When compared with ECG of 23-May-2024 18:54, Nonspecific T wave abnormality now evident in Inferior leads Nonspecific T wave abnormality now evident in Anterior leads Confirmed by SEE ED PROVIDER NOTE FOR, ECG INTERPRETATION (4000), graphic editor BEN PRAKASH ([id number]) on 05/27/2024 12:22:37 PM Comprehensive metabolic panel [...] female who recently started receiving care at [facility] for sickle cell disease, HbSS (Apr 2024). She has several comorbidities related to sickle cell disease, including Chronic pain, AVN of the left hip, history of pulmonary embolism, history of transfusions with iron overload, history of stroke(details unclear), right eye retinopathy, acute on chronic anemia, gallstones, and a history of acute chest syndrome. She has been a regular visitor to the [facility] emergency department as well, and I [...] just the SCD. Her adjustment to the [facility] has been challenging, particularly at this time of year and being at home with their daughter Today, we focused on the mental health, including both psychological and psychiatric care. In my discussions with the emergency department colleagues at [facility], I stressed that a sustainable improvement [...] think outside the box. - Mental health supervisor lead refinery referral placed HbSS Disease with several complications [...] around the hip and femur strong. -Orthopedic supervisor lead refinery referral placed. Will defer to them for [...] per the note Case Samuel MD Classical Forge Shop Machine Repairer Division of Hematology, Oncology, and Transplantation [facility] The longitudinal plan of care for the diagnosis(es)/condition(s) as documented were addressed during this visit. Due to the added complexity in care, I will continue to support Gianna in the subsequent management and with ongoing continuity of care. TUCKER documented in this encounter Nursing Notes * [...] checked into next appt. Jenifer Sheffield RN TUCKER * Laura Rg - 05/29/2024 11:30 AM [...] not needed today. Pharmacy name entered into [facility]: [facility] [address] [place], [place] - [phone] [facility] - [place], [place] - [address] [place] [address] Frailty Screening: Is the patient here for a new oncology consult visit in cancer care? 2. No Clinical concerns:Provider came in during rooming. Laura Rg TUCKER documented in this encounter Plan of Treatment Scheduled Referrals Name Type Priority Associated Diagnoses Orde r Schedule Adult Mental Health Global Account Manager Referral Referral Urgent: 3-5 Days Severe episode of recurrent major depressive disorder, without psychotic features (H) Expected: 05/29/2024 (Approximate), Expires: 05/29/2025 documented as of this encounter Goals Goal Patient Goal Type Associated Problems Recent Progress Patient-Stated? Author Pain Management General On track( 025 12:40 PM AIR TUCKER) Yes Juhi Benson, SOFIA Note: Goal Statement: [...] AND PLATELET MORPHOLOGY Routine 05/29/2024 11:23 AM AIR TUCKER CBC WITH PLATELETS AND DIFFERENTIAL Routine 05/29/2024 11:23 AM AIR TUCKER TYPE AND SCREEN, ADULT Add-On 11:23 AM AIR TUCKER History of transfusion BILL ONLY- CAPILLARY ELECTROPHORESIS Routine 05/29/2024 11:23 AM AIR TUCKER BILL ONLY- SICKLE SOLUBILITY BILL Routine 05/29/2024 11:23 AM AIR TUCKER ROUTINE UA WITH MICROSCOPIC REFLEX TO CULTURE Routine 05/29/2024 11:23 AM AIR TUCKER CBC WITH PLATELETS & DIFFERENTIAL Routine 05/29/2024 11:23 AM AIR TUCKER GENOTYPE RED BLOOD CELL Routine 05/29/19 11:23 AM AIR TUCKER History of transfusion RETICULOCYTE COUNT Routine 05/29/2024 11 :23 AM AIR TUCKER HEMOGLOBIN EVAL REFLEX TO ELP OR RBC SOLUBILITY Routine 05/29/2024 11:23 AM AIR TUCKER FERRITIN Routine 05/29/2024 11:23 AM AIR TUCKER COMPREHENSIVE METABOLIC PANEL Routine 05/29/2024 11:23 AM AIR TUCKER ABO/RH TYPE AND SCREEN Routine 11:23 AM AIR TUCKER History of transfusion URINE CULTURE Routine 05/29/2024 11:23 AM AIR TUCKER documented in this encounter Results * HGB Eval Reflex to ELP or RBC Solubility (05/29/2024 11:23 AM AIR TUCKER) Alpha Globin (HBA1 and HBA2) DD Bill Billed 05/31/2024 2:46 PM AIR TUCKER [facility] Comment: Performed By: [facility] [address] [place] [id number] Wad Lubricator: Devon Healy MD, PhD CLIA Number: [id number] Blood VENOUS LINE / Unknown IVAD (Port) / Unknown 05/29/2024 11:23 AM AIR TUCKER 05/29/2024 11:30 AM AIR TUCKER us Case Samuel MD LAB CHARGE PERFORMABLES F inal Result [facility] [address] [place] [phone], [facility] [phone] * Bill Only- Sickle Solubility Bill (05/29/2024 11:23 AM AIR TUCKER) Sickle Solubility Reflex Bill Billed 05/31/2024 2:46 PM AIR TUCKER [facility] Comment: Performed By: [facility] [address] [place] [address] Wad Lubricator: Devon Healy MD, PhD CLIA Number: [id number] Blood VENOUS LINE / Unknown IVAD (Port) / Unknown 05/29/2024 11:23 AM AIR TUCKER 05/29/2024 11:30 AM AIR TUCKER Case Samuel MD LAB CHARGE PERFORMABLES F inal Result Performing Organization Address City/[facility]/ZIP Co de Phone Number [facility] [address] [place] [address], [facility] [phone] * Adult Type and Screen (05/29/2024 11:23 AM AIR TUCKER) ABO/RH(D) A POS 05/28/2024 6:00 PM AIR TUCKER [facility] Antibody Screen Negative Negative 05/28/2024 6:00 PM AIR TUCKER [facility] SPECIMEN EXPIRATION DATE [id number] 05/28/2024 6:00 PM AIR TUCKER [facility] Blood VENOUS LINE / Unknown IVAD (Port) / Unknown 05/29/2024 11:23 AM AIR TUCKER 05/29/2024 11:29 AM AIR TUCKER Case Samuel MD LAB - BLOOD BANK TEST ORD ER Final Result Performing Organization Address City/[facility]/ZIP Co de Phone Number [facility] [address] [place] [address] * Urine Culture (05/29/2024 11:23 AM AIR TUCKER) Culture <10,000 CFU/mL Mixture of Urogenital Vickie 05/30/2024 9:45 AM AIR TUCKER [facility] Urine URINE SPECIMEN OBTAINED BY CLEAN CATCH PROCEDURE / Unknown Non-blood Collection / Unknown 05/29/2024 11:23 AM AIR TUCKER 05/29/2024 11:41 AM AIR TUCKER Case Samuel MD LAB - MICRO GENERAL ORDER SYD Final Result [facility] Inf. Diseases Diag. Lab [address] [facility], [address] [place] [address] * (ABNORMAL) RBC and Platelet Morphology (05/29/2024 11:23 AM AIR TUCKER) RBC Morphology Confirmed RBC Indices 05/29/2024 12:33 PM AIR TUCKER [facility] Platelet Assessment Automated Count Confirmed. Platelet morphology is normal. Automated Count Confirmed. Platelet morphology is normal. 05/29/2024 12:33 PM AIR TUCKER [facility] Polychromasia Moderate(A) None Seen 05/29/2024 12:33 PM AIR TUCKER [facility] Sickle Cells Moderate(A) None Seen 05/29/2024 12:33 PM AIR TUCKER [facility] Target Cells Slight(A) None Seen 05/29/2024 12:33 PM AIR TUCKER [facility] Teardrop Cells Slight(A) None Seen 05/29/2024 12:33 PM AIR TUCKER [facility] Blood VENOUS LINE / Unknown IVAD (Port) / Unknown 05/29/2024 11:23 AM AIR TUCKER 05/29/2024 11:29 AM AIR TUCKER Case Samuel MD LAB - BLOOD ORDERABLES Fi nal Result [facility] [place] [address] [place] [address] 1st [place] [address] * (ABNORMAL) CBC with platelets and differential (05/29/2024 11:23 AM AIR TUCKER) WBC Count 15.8(H) 4.0 - 11.0 10e3/uL 05/29/2024 12:37 PM AIR TUCKER [facility] RBC Count 2.11(L) 3.80 - 5.20 10e6/uL 05/29/2024 12:37 PM AIR TUCKER [facility] Hemoglobin 6.7(LL) 11.7 - 15.7 g/dL 05/29/2024 12:37 PM AIR TUCKER [facility] Hematocrit 19.2(L) 35.0 - 47.0 % 05/29/2024 12:37 PM [facility] MCV 91 78 - 100 fL 05/29/2024 12:37 PM [facility] MCH 31.8 26.5 - 33.0 pg 05/29/2024 12:37 PM [facility] MCHC 34.9 31.5 - 36.5 g/dL 05/29/2024 12:37 PM [facility] RDW 23.1(H) 10.0 - 15.0 % 05/29/2024 12:37 PM [facility] Platelet Count 417 150 - 450 10e3/uL 05/29/2024 12:37 PM [facility] % Neutrophils 56 % 05/29/2024 12:37 PM [facility] % Lymphocytes 25 % 05/29/2024 12:37 PM [facility] % Monocytes 15 % 05/29/2024 12:37 PM [facility] % Eosinophils 2 % 05/29/2024 12:37 PM [facility] % Basophils 1 % 05/29/2024 12:37 PM [facility] % Immature Granulocytes 1 % 05/29/2024 12:37 PM [facility] NRBCs per 100 WBC 2(H) <1 /100 025 12:37 PM [facility] Absolute Neutrophils 8.8(H) 1.6 - 8.3 10e3/uL 05/29/2024 12:37 PM [facility] Absolute Lymphocytes 4.0 0.8 - 5.3 10e3/uL 05/29/2024 12:37 PM [facility] Absolute Monocytes 2.4(H) 0.0 - 1.3 10e3/uL 05/29/2024 12:37 PM [facility] Absolute Eosinophils 0.3 0.0 - 0.7 10e3/uL 05/29/2024 12:37 PM [facility] Absolute Basophils 0.2 0.0 - 0.2 10e3/uL 05/29/2024 12:37 PM [facility] Absolute Immature Granulocytes 0.2 <=0.4 10e3/uL 05/29/2024 12:37 PM AIR TUCKER [facility] Absolute NRBCs 0.2 10e3/uL 05/29/2024 12:37 PM AIR TUCKER [facility] Blood VENOUS LINE / Unknown IVAD (Port) / Unknown 05/29/2024 11:23 AM AIR TUCKER 05/29/2024 11:29 AM AIR TUCKER Case Samuel MD LAB - BLOOD ORDERABLES Fi nal Result [facility] [address] [facility] 1st [place] [address] * Genotype Red Blood Cell (05/29/2024 11:23 AM AIR TUCKER) Pathologist [facility] See Scanned Result GENOTYPE RED BLOOD CELL-Scanned 05/31/2024 10:16 AM AIR TUCKER [facility] Blood VENOUS LINE / Unknown IVAD (Port) / Unknown 05/29/2024 11:23 AM AIR TUCKER 05/29/2024 11:29 AM AIR TUCKER us Case Samuel MD LAB - BLOOD ORDERABLES Fi nal Result [facility] [address] [place] [address], [facility] [phone] * (ABNORMAL) HGB Eval Reflex to ELP or RBC Solubility (05/29/2024 11:23 AM AIR TUCKER) Hemoglobin A 15.0(L) 95.0 - 97.9 % 05/31/2024 2:46 PM AIR TUCKER [facility] Hemoglobin A2 3.0 2.0 - 3.5 % 05/31/2024 2:46 PM AIR TUCKER [facility] Hemoglobin F 10.8(H) 0.0 - 2.1 % 05/31/2024 2:46 PM AIR TUCKER [facility] Hemoglobin S 71.2(H) 0.0 - 0.0 % 05/31/2024 2:46 PM AIR TUCKER [facility] Hemoglobin C 0.0 0.0 - 0.0 % 05/31/2024 2:46 PM AIR TUCKER [facility] Hemoglobin E 0.0 0.0 - 0.0 % 05/31/2024 2:46 PM AIR TUCKER [facility] Hemoglobin - Other 0.0 0.0 - 0.0 % 05/31/2024 2:46 PM AIR TUCKER [facility] Hemoglobin Evaluation See Note 05/31/2024 2:46 PM AIR TUCKER [facility] Comment: Impression: Hb S present [...] Globin (HBA1 and HBA2) Deletion/Duplication ([facility] test #[id number]) should be considered. Hb S/beta-plus thalassemia is typically characterized by more Hb S than Hb A with the presence of microcytosis. If microcytosis is present and Hb S/beta-plus thalassemia is suspected, Beta Globin (HBB) Sequencing ([facility] test #[id number]) is suggested. Hemoglobin analysis should be offered [...] developed and its performance characteristics determined by [facility]. It has not been cleared or approved by the U.S. Food and Drug Administration. This test was performed in a CLIA-certified laboratory and is intended for clinical purposes. Sickle Cell Solubility Reflex Positive(A) 05/31/2024 2:46 PM AIR TUCKER [facility] Comment: INTERPRETIVE INFORMATION: Sickle Cell Solubility Reflex Not Performed: Solubility testing for Hemoglobin S not indicated. 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 Additional charges apply. Conf Previous: Positive for Hemoglobin S by HPLC. Solubility testing performed previously and not repeated with this submission. Hgb Capillary Electrophoresis Reflex Performed 05/31/2024 2:46 PM AIR TUCKER [facility] Comment: INTERPRETIVE INFORMATION: Hgb Capillary Electrophoresis Reflex Not Performed: Confirmation by Capillary Electrophoresis not indicated. Performed: Results confirmed by Capillary Electrophoresis. Additional charges apply. Conf Previous: Capillary Electrophoresis confirmation performed as part of a previous submission. Confirmation not repeated with this submission. Performed By: [facility] [address] [place] [address] Wad Lubricator: Devon Healy MD, PhD CLIA Number: [id number] Blood VENOUS LINE / Unknown IVAD (Port) / Unknown 05/29/2024 11:23 AM AIR TUCKER 05/29/2024 11:30 AM AIR TUCKER Case Smauel MD LAB - BLOOD ORDERABLES Fi nal Result Performing Organization Address City/[facility]/ZIP Co de Phone Number [facility] [address] [place] [address] [phone] [phone] * (ABNORMAL) Ferritin (05/29/2024 11:23 AM AIR TUCKER) Pathologist [facility] Ferritin 1,559(H) 6 - 175 ng/mL 05/29/2024 12:43 PM AIR TUCKER [facility] Blood VENOUS LINE / Unknown IVAD (Port) / Unknown 05/29/2024 11:23 AM AIR TUCKER 05/29/2024 11:29 AM AIR TUCKER Case Samuel MD LAB - BLOOD ORDERABLES Fi nal Result [facility] [address] 1st [place] [address] * (ABNORMAL) Routine UA with micro reflex to culture (05/29/2024 11:23 AM AIR TUCKER) Color Urine Yellow Colorless, Straw, Light Yellow, Yellow 05/29/2024 11:41 AM AIR TUCKER [facility] Appearance Urine Slightly Cloudy(A) Clear 05/29/2024 11:41 AM [facility] Glucose Urine Negative Negative mg/dL 05/29/2024 11:41 AM [facility] Bilirubin Urine Negative Negative 11:41 AM [facility] Ketones Urine Negative Negative mg/dL 05/29/2024 11:41 AM [facility] Specific Unity Urine 1.013 1.003 - 1.035 05/29/2024 11:41 AM [facility] Blood Urine Negative Negative 05/29/2024 11:41 AM [facility] pH Urine 7.0 5.0 - 7.0 05/29/2024 11:41 AM [facility] Protein Albumin Urine Negative Negative mg/dL 05/29/2024 11:41 AM [facility] Urobilinogen Urine Normal Normal, 2.0 mg/dL 05/29/2024 11:41 AM [facility] Nitrite Urine Negative Negative 05/29/2024 11:41 AM [facility] Leukocyte Esterase Urine Moderate(A) Negative 05/29/2024 11:41 AM AIR TUCKER [facility] Mucus Urine Present(A) None Seen /LPF 05/29/2024 11:41 AM [facility] RBC Urine 6(H) <=2 /HPF 05/29/2024 11:41 AM [facility] WBC Urine 3 <=5 /HPF 05/29/2024 11:41 AM [facility] Squamous Epithelials Urine 18(H) <=1 /HPF 05/29/2024 11:41 AM [facility] Urine URINE SPECIMEN OBTAINED BY CLEAN CATCH PROCEDURE / Unknown Non-blood Collection / Unknown 05/29/2024 11:23 AM AIR TUCKER 05/29/2024 11:29 AM AIR TUCKER Narrative [facility] - 05/29/2024 11:41 AM AIR TUCKER Urine Culture ordered based on laboratory criteria us Case Samuel MD LAB - URINE ORDERABLES Fi nal Result [facility] [address] 1st [place] [address] * (ABNORMAL) Comprehensive metabolic panel (05/29/2024 11:23 AM [facility]) Sodium 139 135 - 145 mmol/L 05/29/2024 11:58 AM [facility] Potassium 4.2 3.4 - 5.3 mmol/L 05/29/2024 11:58 AM [facility] Carbon Dioxide (CO2) 24 22 - 29 mmol/L 05/29/2024 11:58 AM [facility] Anion Gap 10 7 - 15 mmol/L 05/29/2024 11:58 AM [facility] Urea Nitrogen 9.2 6.0 - 20.0 mg/dL 05/29/2024 11:58 AM [facility] Creatinine 0.75 0.51 - 0.95 mg/dL 05/29/2024 11:58 AM [facility] GFR Estimate >90 >60 mL/min/1.7 3m2 05/29/2024 11:58 AM [facility] Comment:eGFR calculated usin g 2020 CKD-EPI equation. Calcium 8.9 8.8 - 10.4 mg/dL 05/29/2024 11:58 AM [facility] Chloride 105 98 - 107 mmol/L 05/29/2024 11:58 AM [facility] Glucose 109(H) 70 - 99 mg/dL 05/29/2024 11:58 AM [facility] Alkaline Phosphatase 83 40 - 150 U/L 05/29/2024 11:58 AM [facility] AST 49(H) 0 - 45 U/L 05/29/2024 11:58 AM [facility] ALT 21 0 - 50 U/L 05/29/2024 11:58 AM [facility] Protein Total 7.3 6.4 - 8.3 g/dL 05/29/2024 11:58 AM [facility] Albumin 4.1 3.5 - 5.2 g/dL 05/29/2024 11:58 AM [facility] Bilirubin Total 2.2(H) <=1.2 mg/dL 05/29/2024 11:58 AM [facility] Blood VENOUS LINE / Unknown IVAD (Port) / Unknown 05/29/2024 11:23 AM [employer] [facility] 05/29/2024 11:29 AM [employer] Case Samuel MD LAB - BLOOD ORDERABLES Fi nal Result Performing Organization Address [facility] de Phone Number [facility] - [address] [place] [address] * (ABNORMAL) Reticulocyte count (05/29/2024 11:23 AM AIR T[employer]ER) [facility] % Reticulocyte 29.8(H) 0.5 - 2.0 % 05/29/2024 12:00 PM [employer] [facility] Absolute Reticulocyte 0.631(H) 0.025 - 0.095 10e6/uL 05/29/2024 12:00 PM [facility] Blood VENOUS LINE / Unknown IVAD (Port) / Unknown 05/29/2024 11:23 AM [employer] 05/29/2024 11:29 AM [employer] Case Samuel MD LAB - BLOOD ORDERABLES Fi nal Result Performing Organization Address [facility] de Phone Number [facility] [address] [place] [address] documented in this encounter Visit Diagnoses Diagnosis [...] Wed05/29/24 at 1130 $Given 05/29/2024 11:29 AM AIR TUCKER 5 mLs sodium chloride (PF) 0.9% PF flush 20 mL 20 mL, Intravenous, ONCE, On 05/29/24 at 1130, For 1 dose $Given 05/29/2024 11:30 AM [employer] T[employer]ER 20 mLs documented in this encounter Care Teams Silk Worker Relationship Specialty Start Date End Date No Ref-Primary, Physician PCP - General 03/15/24 06/17/24 Mor Ramsey Medical Student 04/03/24 Case Samuel MD [address] [place] [address] [address] [place] [address] Assigned Pediatric Specialist Provider 05/18/24 Juhi Benson, RN Specialty Big Machine Consultant Hematology & Oncology 05/29/24 documented as of this encounter
--- OUTSIDE RECORDS SUMMARY | 2024-06-25 16:15 | XMS_ITS | Encounter Summary ---
Author Organization [employer] Address [address] [place] [address]. [place] [address] Care Team Providers Care Clinical Staff Educator Name Role Phone No Ref-Primary, Physician Primary Care Provider Mor Ramsey Unavailable Unavailable Case Samuel MD Unavailable [phone] Juhi Benson RN Unavailable Unavailable Encounter Details [...] on file Legal Sex Female 8:25 AM INSTRUCTIONAL AIDE Gender Identity Not on file Sexual Orientation Not on file documented as of this encounter Plan of Treatment Not on file documented as of this encounter Goals Goal Patient Goal Type Associated Problems Recent Progress Patient-Stated? Author Pain Management General On track( 025 12:40 PM INSTRUCTIONAL AIDE) Yes Juhi Benson RN Note: Goal Statement: [...] on filedocumented in this encounter Care Teams Clinical Staff Educator Relationship Specialty Start Date End Date No Ref-Primary, Physician PCP - General 03/15/24 06/17/24 Mor Ramsey Medical Student 04/03/24 Case Samuel MD [address] [place] [address] [address] [place] [address] Assigned Pediatric Specialist Provider 05/18/24 Juhi Benson RN Specialty Quantitative Analyst Hematology & Oncology 05/29/24 documented as of this encounter
--- OUTSIDE RECORDS SUMMARY | 2024-06-25 16:16 | XMS_ITS | Encounter Summary ---
Author Organization [employer] Address [address] [place] [address]. [place] [address] Care Team Providers Care Ethanol Maintenance Mechanic Name Role Phone No Ref-Primary, Physician Primary Care Provider Mor Ramsey Unavailable Unavailable Case Samuel MD Unavailable [phone] Juhi Benson RN Unavailable Unavailable Reason for Visit * Reason Comments Infusion * Auth/Cert Specialty Diagnoses / Procedures Referred By Shahid t Referred To Contact EMERGENCY MEDICINE Diagnoses Acute chest pain Sickle cell pain crisis (H) [facility] Emergency Department [address] [place] [address] Phone: tel: Referral ID Status Reason Start Date Expiration Date Visits Re quested Visits Authorized [id number] 1 1 Encounter Details Date Type Department Care Team ([facility] st Contact Info) Description 06/09/2024 11:30 AM RESPIRATORY CARE ASSISTANT Infusion Therapy Visit [facility] [address] [place] [address] Case Samuel MD [address] [facility] [address] [place] [address] Sickle cell pain crisis (H) [...] on file Legal Sex Female 8:25 AM RESPIRATORY CARE ASSISTANT Gender Identity Not on file Sexual Orientation Not on file documented as of this encounter Last Filed Vital Signs Vital Sign Reading Time Taken Comments Blood Pressure 123/75 06/09/2024 11:45 AM RESPIRATORY CARE ASSISTANT Pulse 87 06/09/2024 11:45 AM RESPIRATORY CARE ASSISTANT Temperature 37 C (98.6 F) 06/09/2024 11:45 AM RESPIRATORY CARE ASSISTANT Respiratory Rate 16 06/09/2024 11:45 AM RESPIRATORY CARE ASSISTANT Oxygen Saturation 100% 06/09/2024 11:45 AM RESPIRATORY CARE ASSISTANT Inhaled Oxygen Concentration - - Weight - - Height - - Body Mass Index - - documented in this encounter Progress Notes * Lynne Camacho, RN - 06/09/2024 11:30 AM CST Infusion Nursing Note: Gianna Hernández presents today for IV fluids + Dilaudid. Patient seen by provider today: No Fish Housekeeper present during visit today: Not Applicable. Note: Rating pain at an 8 out of 10 upon arrival. 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 Intravenous Access: Implanted Port. Treatment Conditions: [...] all questions answered. AVS to patient via [employer]. Patient will return 06/13 for next appointment. Patient discharged in stable condition accompanied by: self and boyfriend. Departure Mode: Ambulatory. Lynne Camacho RN IRATORY CARE ASSISTANT documented in this encounter Plan of Treatment Not on file documented as of this encounter Goals Goal Patient Goal Type Associated Problems Recent Progress Patient-Stated? Author Pain Management General On track( 025 12:40 PM RESPIRATORY CARE ASSISTANT) Yes Juhi Benson, RN Note: Goal [...] pain crisis (H) $Given 06/09/2024 2:03 PM RESPIRATORY CARE ASSISTANT 5 mLs hydromorphone (DILAUDID) injection 2 mg 2 mg, Intravenous, EVERY 1 HOUR PRN, severe pain, moderate pain, Starting on Wed06/09/24 at 1111, For 3 dosesIndications:Sickle cell pain crisis (H) $Given 06/09/2024 1:58 PM RESPIRATORY CARE ASSISTANT 2 mg $Given 06/09/2024 12:52 PM RESPIRATORY CARE ASSISTANT 2 mg $Given 06/09/2024 11:53 AM RESPIRATORY CARE ASSISTANT 2 mg lactated ringers BOLUS 1,000 mL Intravenous, 1,000 mL, ONCE, at 500 mL/hr, Administer over 2 Hours, On Wed06/09/24 at 1115, For 1 doseIndications:Sickle cell pain crisis (H) $New Bag 06/09/2024 11:45 AM RESPIRATORY CARE ASSISTANT 1,000 mLs 500 mL/hr sodium chloride (PF) [...] pain crisis (H) $Given 06/09/2024 11:45 AM RESPIRATORY CARE ASSISTANT 20 mLs documented in this encounter Care Teams Ethanol Maintenance Mechanic Relationship Specialty Start Date End Date No Ref-Primary, Physician PCP - General 03/15/24 06/17/24 Mor Ramsey Medical Student 04/03/24 Case Samuel MD [address] [place] [address] [address], [address] [place] [address] Assigned Pediatric Specialist Provider 05/18/24 Juhi Benson, RN Specialty Clinical Documentation Specialist Hematology & Oncology 05/29/24 documented as of this encounter
--- OUTSIDE RECORDS SUMMARY | 2024-06-25 16:16 | XMS_ITS | Encounter Summary ---
Author Organization [employer] Address [address] [place] [address]. [place] [address] Care Team Providers Care Oracle Application Architect Name Role Phone No Ref-Primary, Physician Primary Care Provider Mor Ramsey Unavailable Unavailable Case Samuel MD Unavailable [phone] Juhi Benson RN Unavailable Unavailable Encounter Details [...] on file Legal Sex Female 8:25 AM WEAPONS MECHANIC Gender Identity Not on file Sexual Orientation Not on file documented as of this encounter Plan of Treatment Not on file documented as of this encounter Goals Goal Patient Goal Type Associated Problems Recent Progress Patient-Stated? Author Pain Management General On track( 025 12:40 PM WEAPONS MECHANIC) Yes Juhi Benson RN Note: Goal [...] on filedocumented in this encounter Care Teams Oracle Application Architect Relationship Specialty Start Date End Date No Ref-Primary, Physician PCP - General 03/15/24 06/17/24 Mor Ramsey Medical Student 04/03/24 Case Samuel MD [address] [place] [address] [address], [address] [place] [address] Assigned Pediatric Specialist Provider 05/18/24 Juhi Benson RN Specialty Configuration Engineer Hematology & Oncology 05/29/24 documented as of this encounter
--- OUTSIDE RECORDS SUMMARY | 2024-06-25 16:16 | XMS_ITS | Encounter Summary ---
Author Organization [employer] Address [address] [place] [address]. [place] [address] Care Team Providers Care Business Insight And Analytics Manager Name Role Phone No Ref-Primary, Physician Primary Care Provider Mor Ramsey Unavailable Unavailable Case Samuel MD Unavailable [phone] Juhi Benson RN Unavailable Unavailable Encounter Details [...] file Legal Sex Female 8:25 AM RUBBER GOODS SUPERVISOR Gender Identity Not on file Sexual Orientation Not on file documented as of this encounter Plan of Treatment Not on file documented as of this encounter Goals Goal Patient Goal Type Associated Problems Recent Progress Patient-Stated? Author Pain Management General On track( 025 12:40 PM RUBBER GOODS SUPERVISOR) Yes Juhi Benson RN Note: Goal [...] filedocumented in this encounter Care Teams Business Insight And Analytics Manager Relationship Specialty Start Date End Date No Ref-Primary, Physician PCP - General 03/15/24 06/17/24 Mor Ramsey Medical Student 04/03/24 Case Samuel MD [address] [place] [address] [address], [address] [place] [address] Assigned Pediatric Specialist Provider 05/18/24 Juhi Benson RN Specialty Backup Administrative Coordinator Hematology & Oncology 05/29/24 documented as of this encounter
--- OUTSIDE RECORDS SUMMARY | 2024-06-25 16:16 | XMS_ITS | Encounter Summary ---
Author Organization [employer] Address [address] [place] [address]. [place] [address] Care Team Providers Care Manganese Wheeler Name Role Phone No Ref-Primary, Physician Primary Care Provider Mor Ramsey Unavailable Unavailable Case Samuel MD Unavailable [phone] Juhi Benson RN Unavailable Unavailable Encounter Details [...] on file Legal Sex Female 8:25 AM CLAIM PROCESSOR Gender Identity Not on file Sexual Orientation Not on file documented as of this encounter Plan of Treatment Not on file documented as of this encounter Goals Goal Patient Goal Type Associated Problems Recent Progress Patient-Stated? Author Pain Management General On track( 025 12:40 PM CLAIM PROCESSOR) Yes Juhi Benson RN Note: Goal Statement: [...] on filedocumented in this encounter Care Teams Manganese Wheeler Relationship Specialty Start Date End Date No Ref-Primary, Physician PCP - General 03/15/24 06/17/24 Mor Ramsey Medical Student 04/03/24 Case Samuel MD [address] [place] [address] [address], [address] [place] [address] Assigned Pediatric Specialist Provider 05/18/24 Juhi Benson RN Specialty Mechanic Industrial Truck Hematology & Oncology 05/29/24 documented as of this encounter
--- OUTSIDE RECORDS SUMMARY | 2024-06-25 16:16 | XMS_ITS | Encounter Summary ---
Author Organization [place] Address [address] [place] [address]. [place] [address] Care Team Providers Care Environmental Geologist Name Role Phone No Ref-Primary, Physician Primary Care Provider Mor Ramsey Unavailable Unavailable Case Samuel MD Unavailable [phone] Juhi Benson RN Unavailable Unavailable Reason for Visit * Reason Comments Infusion IVF + pain medicatio n Encounter Details Date Type Department Care Team (Late st Contact Info) Description 06/07/2024 1:30 PM HEAD OF TALENT MANAGEMENT Infusion Therapy Visit [facility] Advanced [facility] [address] [place] [address] Case Samuel MD [address] [place] [address] 484, [address] [place], [place] [id number] Fever (Primary Dx); Sickle cell pain crisis [...] file Legal Sex Female 8:25 AM HEAD OF TALENT MANAGEMENT Gender Identity Not on file Sexual Orientation Not on file documented as of this encounter Last Filed Vital Signs Vital Sign Reading Time Taken Comments Blood Pressure 119/76 06/07/2024 3:43 PM HEAD OF TALENT MANAGEMENT Pulse 72 06/07/2024 3:43 PM HEAD OF TALENT MANAGEMENT Temperature 37 C (98.6 F) 06/07/2024 1:35 PM HEAD OF TALENT MANAGEMENT Respiratory Rate 16 06/07/2024 1:35 PM HEAD OF TALENT MANAGEMENT Oxygen Saturation 99% 06/07/2024 3:43 PM HEAD OF TALENT MANAGEMENT Inhaled Oxygen Concentration - - Weight - - Height - - Body Mass Index - - documented in this encounter Patient Instructions * Patient Instructions* Tyson Hess RN - 06/07/2024 1:30 PM HEAD OF TALENT MANAGEMENT Dear Gianna Hernández Thank you for choosing [facility] ([facility]) for your infusion. The following information is a summary of our appointment as well as important reminders. If you have any questions on your upcoming Specialty Infusion appointments, please call scheduling at [phone]. It was a pleasure taking care of you today. Sincerely, [facility] [address] [place] [address] OF TALENT MANAGEMENT documented in this encounter Progress Notes * Tyson Hess RN - 06/07/2024 1:30 PM CST Infusion Nursing Note: Gianna Hernández presents today for IV infusion; IVF + pain medication. Patient seen by provider today: No Power Line Installer present during visit today: Not Applicable. Note: [...] all questions answered. AVS to patient via [employer]. Patient will return as needed for next appointment. Patient discharged in stable condition accompanied by: self. Departure Mode: Ambulatory. Tyson Hess RN OF TALENT MANAGEMENT documented in this encounter Plan of Treatment Not on file documented as of this encounter Goals Goal Patient Goal Type Associated Problems Recent Progress Patient-Stated? Author Pain Management General On track( 025 12:40 PM HEAD OF TALENT MANAGEMENT) Yes Juhi Benson RN Note: Goal Statement: [...] AND PLATELET MORPHOLOGY Routine 06/07/2024 1:15 PM HEAD OF TALENT MANAGEMENT Sickle cell pain crisis (H) CBC WITH PLATELETS AND DIFFERENTIAL Routine 06/07/2024 1:15 PM HEAD OF TALENT MANAGEMENT Sickle cell pain crisis (H) INFLUENZA A/B, RSV AND SARS-COV2 PCR Routine 06/07/2024 1:15 PM HEAD OF TALENT MANAGEMENT Fever CBC WITH PLATELETS & DIFFERENTIAL Routine 06/07/2024 1:15 PM HEAD OF TALENT MANAGEMENT Sickle cell pain crisis (H) BASIC METABOLIC PANEL Routine 06/07/2024 1:15 PM HEAD OF TALENT MANAGEMENT Sickle cell pain crisis (H) documented in this encounter Results * (ABNORMAL) RBC and Platelet Morphology (06/07/2024 1:15 PM HEAD OF TALENT MANAGEMENT) RBC Morphology Confirmed RBC Indices 06/07/2024 2:06 PM HEAD OF TALENT MANAGEMENT [facility] Platelet Assessment Automated Count Confirmed. Platelet morphology is normal. Automated Count Confirmed. Platelet morphology is normal. 06/07/2024 2:06 PM HEAD OF TALENT MANAGEMENT [facility] [place] Bodies Present(A) None Seen 06/07/2024 2:06 PM HEAD OF TALENT MANAGEMENT [facility] Polychromasia Slight(A) None Seen 06/07/2024 2:06 PM HEAD OF TALENT MANAGEMENT [facility] Sickle Cells Moderate(A) None Seen 06/07/2024 2:06 PM HEAD OF TALENT MANAGEMENT [facility] Target Cells Slight(A) None Seen 06/07/2024 2:06 PM HEAD OF TALENT MANAGEMENT [facility] Teardrop Cells Slight(A) None Seen 06/07/2024 2:06 PM HEAD OF TALENT MANAGEMENT [facility] Blood BLOOD SPECIMEN / Unknown IVAD (Port) / Unknown 06/07/2024 1:15 PM HEAD OF TALENT MANAGEMENT 06/07/2024 1:35 PM HEAD OF TALENT MANAGEMENT Case Samuel MD LAB - BLOOD ORDERABLES Fi nal Result [facility]ORE [facility] [address] 1st [place] [address] * Influenza A/B, RSV and SARS-CoV2 PCR (COVID-19) Nasopharyngeal (06/07/2024 1:15 PM HEAD OF TALENT MANAGEMENT) Influenza A PCR Negative Negative 06/07/2024 3:32 PM HEAD OF TALENT MANAGEMENT [facility] Influenza B PCR Negative Negative 06/07/2024 3:32 PM HEAD OF TALENT MANAGEMENT [facility] RSV PCR Negative Negative 06/07/2024 3:32 PM HEAD OF TALENT MANAGEMENT [facility] SARS CoV2 PCR Negative Negative 06/07/2024 3:32 PM HEAD OF TALENT MANAGEMENT [facility] Comment:NEGATIVE: SARS-CoV-2 (COVID-19) RNA not detected, presumed negative. Swab NASOPHARYNGEAL STRUCTURE / Unknown Non-blood Collection / Unknown 06/07/2024 1:15 PM HEAD OF TALENT MANAGEMENT 06/07/2024 1:36 PM HEAD OF TALENT MANAGEMENT Narrative [facility] - 06/07/2024 3:32 PM HEAD OF TALENT MANAGEMENT Testing was performed using the Xpert Xpress CoV2/Flu/RSV Assay on the [employer] Gene[employer]pert Instrument. This test should be ordered [...] management. This test was validated by the [facility] [employer]. These laboratories are certified under the Clinical Laboratory Improvement Amendments of 1988 (CLIA-88) as qualified to perfom high complexity laboratory testing. us Case Samuel MD LAB - MICRO GENERAL ORDER SYD Final Result [facility] Inf. Diseases Diag. Lab [address] [facility], [address] [place] [address] * (ABNORMAL) CBC with platelets and differential (06/07/2024 1:15 PM HEAD OF TALENT MANAGEMENT) WBC Count 13.7(H) 4.0 - 11.0 10e3/uL 06/07/2024 2:06 PM [facility] RBC Count 2.80(L) 3.80 - 5.20 10e6/uL 06/07/2024 2:06 PM [facility] Hemoglobin 8.8(L) 11.7 - 15.7 g/dL 06/07/2024 2:06 PM [facility] Hematocrit 25.3(L) 35.0 - 47.0 % 06/07/2024 2:06 PM [facility] MCV 90 78 - 100 fL 06/07/2024 2:06 PM [facility] MCH 31.4 26.5 - 33.0 pg 06/07/2024 2:06 PM [facility] MCHC 34.8 31.5 - 36.5 g/dL 06/07/2024 2:06 PM [facility] RDW 19.4(H) 10.0 - 15.0 % 06/07/2024 2:06 PM [facility] Platelet Count 516(H) 150 - 450 10e3/uL 06/07/2024 2:06 PM [facility] % Neutrophils 67 % 06/07/2024 2:06 PM [facility] % Lymphocytes 20 % 06/07/2024 2:06 PM [facility] % Monocytes 11 % 06/07/2024 2:06 PM [facility] % Eosinophils 1 % 06/07/2024 2:06 PM HEAD OF TALENT MANAGEMENT [facility] % Basophils 1 % 06/07/2024 2:06 PM HEAD OF TALENT MANAGEMENT [facility] % Immature Granulocytes 0 % 06/07/2024 2:06 PM HEAD OF TALENT MANAGEMENT [facility] NRBCs per 100 WBC 1(H) <1 /100 025 2:06 PM HEAD OF TALENT MANAGEMENT [facility] Absolute Neutrophils 9.2(H) 1.6 - 8.3 10e3/uL 06/07/2024 2:06 PM HEAD OF TALENT MANAGEMENT [facility] Absolute Lymphocytes 2.7 0.8 - 5.3 10e3/uL 06/07/2024 2:06 PM HEAD OF TALENT MANAGEMENT [facility] Absolute Monocytes 1.5(H) 0.0 - 1.3 10e3/uL 06/07/2024 2:06 PM [facility] Absolute Eosinophils 0.1 0.0 - 0.7 10e3/uL 06/07/2024 2:06 PM HEAD OF TALENT MANAGEMENT [facility] Absolute Basophils 0.2 0.0 - 0.2 10e3/uL 06/07/2024 2:06 PM HEAD OF TALENT MANAGEMENT [facility] Absolute Immature Granulocytes 0.1 <=0.4 10e3/uL 06/07/2024 2:06 PM HEAD OF TALENT MANAGEMENT [facility] Absolute NRBCs 0.1 10e3/uL 06/07/2024 2:06 PM [facility] Blood BLOOD SPECIMEN / Unknown IVAD (Port) / Unknown 06/07/2024 1:15 PM HEAD OF TALENT MANAGEMENT 06/07/2024 1:35 PM HEAD OF TALENT MANAGEMENT us Case Samuel MD LAB - BLOOD ORDERABLES Fi nal Result [facility] [place] [address] [facility] 1st [place] [address] * (ABNORMAL) Basic metabolic panel (06/07/2024 1:15 PM HEAD OF TALENT MANAGEMENT) Pathologist [facility] Sodium 139 135 - 145 mmol/L 06/07/2024 2:11 PM HEAD OF TALENT MANAGEMENT [facility] Potassium 4.4 3.4 - 5.3 mmol/L 06/07/2024 2:11 PM [facility] Chloride 109(H) 98 - 107 mmol/L 06/07/2024 2:11 PM [facility] Carbon Dioxide (CO2) 22 22 - 29 mmol/L 06/07/2024 2:11 PM [facility] Anion Gap 8 7 - 15 mmol/L 06/07/2024 2:11 PM [facility] Urea Nitrogen 7.4 6.0 - 20.0 mg/dL 06/07/2024 2:11 PM [facility] Creatinine 0.66 0.51 - 0.95 mg/dL 06/07/2024 2:11 PM [facility] GFR Estimate >90 >60 mL/min/1.7 3m2 06/07/2024 2:11 PM [facility] Comment:eGFR calculated usin 2020 CKD-EPI equation. Calcium 9.3 8.8 - 10.4 mg/dL 06/07/2024 2:11 PM [facility] Glucose 98 70 - 99 mg/dL 06/07/2024 2:11 PM [facility] Blood BLOOD SPECIMEN / Unknown IVAD (Port) / Unknown 06/07/2024 1:15 PM HEAD OF TALENT MANAGEMENT 06/07/2024 1:35 PM HEAD OF TALENT MANAGEMENT Case Samuel MD LAB - BLOOD ORDERABLES Fi nal Result [facility] [address] 1st [place] [address] documented in this encounter Visit Diagnoses Diagnosis [...] pain crisis (H) $Given 06/07/2024 3:41 PM HEAD OF TALENT MANAGEMENT 5 mLs HYDROmorphone (DILAUDID) injection 2 mg 2 mg, Intravenous, EVERY 1 HOUR PRN, severe pain, moderate pain, Starting on Wed06/07/24 at 1309, For 3 dosesIndications:Sickle cell pain crisis (H) $Given 06/07/2024 3:28 PM HEAD OF TALENT MANAGEMENT 2 mg $Given 06/07/2024 2:30 PM HEAD OF TALENT MANAGEMENT 2 mg $Given 06/07/2024 1:37 PM HEAD OF TALENT MANAGEMENT 2 mg lactated ringers BOLUS 1,000 mL Intravenous, 1,000 mL, ONCE, at 500 mL/hr, Administer over 2 Hours, On Wed06/07/24 at 1315, For 1 doseIndications:Sickle cell pain crisis (H) $New Bag 06/07/2024 1:37 PM HEAD OF TALENT MANAGEMENT 1,000 mLs 500 mL/hr documented in this encounter Additional Health Concerns Infection Onset Date Last Indicated Resolved Time Rule Out COVID-19 06/07/2024 06/07/2024 06/07/2024 3:32 PM HEAD OF TALENT MANAGEMENT documented as of this encounter Care Teams Environmental Geologist Relationship Specialty Start Date End Date No Ref-Primary, Physician PCP - General 03/15/24 06/17/24 Mor Ramsey Medical Student 04/03/24 Case Samuel MD [address] [place] [address] 484, [address] [place] [address] Assigned Pediatric Specialist Provider 05/18/24 Juhi Benson, RN Specialty Morning Nanny Hematology & Oncology 05/29/24 documented as of this encounter
--- OUTSIDE RECORDS SUMMARY | 2024-06-25 16:16 | XMS_ITS | Encounter Summary ---
Author Organization [place] Address [address] [place] [address]. [place] [address] Care Team Providers Care Men'S Swim Coach Name Role Phone No Ref-Primary, Physician Primary Care Provider Mor Ramsey Unavailable Unavailable Case Samuel MD Unavailable [phone] Juhi Benson RN Unavailable Unavailable Encounter Details [...] on file Legal Sex Female 8:25 AM FULL STACK NET DEVELOPER Gender Identity Not on file Sexual Orientation Not on file documented as of this encounter Plan of Treatment Not on file documented as of this encounter Goals Goal Patient Goal Type Associated Problems Recent Progress Patient-Stated? Author Pain Management General On track( 025 12:40 PM FULL STACK NET DEVELOPER) Yes Juhi Benson RN Note: Goal Statement: [...] Out COVID-19 06/07/2024 06/07/2024 06/07/2024 12:50 PM FULL STACK NET DEVELOPER Rule Out COVID-19 06/07/2024 06/07/2024 06/07/2024 3:32 PM FULL STACK NET DEVELOPER documented as of this encounter Care Teams Men'S Swim Coach Relationship Specialty Start Date End Date No Ref-Primary, Physician PCP - General 03/15/24 06/17/24 Elvira Ramseyc Medical Student 04/03/24 Case Samuel MD [address] [place] [address] 484, [address] [place] [address] Assigned Pediatric Specialist Provider 05/18/24 Juhi Benson, RN Specialty Sewing Demonstrator Hematology & Oncology 05/29/24 documented as of this encounter
--- OUTSIDE RECORDS SUMMARY | 2024-06-25 16:16 | XMS_ITS | Encounter Summary ---
Author Organization [facility] Address [address] [place] [address] Care Team Providers Care Taxi Cab Driver Name Role Phone No Ref-Primary, Physician Primary Care Provider Mor Ramsey Unavailable Unavailable Case Samuel MD Unavailable [phone] Juhi Benson RN Unavailable Unavailable Reason for Visit * Reason Comments Sickle Cell Pain Crisis Encounter Details Date Type Department Care Team (Late st Contact Info) Description 06/06/2024 9:41 AM RESTAURANT CULINARY MANAGER - 06/06/2024 1:29 PM [facility] Emergency [facility] Emergency Room [facility] [place] [address] Marilia Summers MD [address] [place] [address] Sickle cell pain crisis (H) Discharge Disposition: [...] on file Legal Sex Female 8:25 AM RESTAURANT CULINARY MANAGER Gender Identity Not on file Sexual Orientation Not on file documented as of this encounter Last Filed Vital Signs Vital Sign Reading Time Taken Comments Blood Pressure 122/82 06/06/2024 1:00 PM RESTAURANT CULINARY MANAGER Pulse 77 06/06/2024 1:00 PM RESTAURANT CULINARY MANAGER Temperature 36.9 C (98.5 F) 06/06/2024 9:33 AM RESTAURANT CULINARY MANAGER Respiratory Rate 17 06/06/2024 9:33 AM RESTAURANT CULINARY MANAGER Oxygen Saturation 98% 06/06/2024 1:00 PM RESTAURANT CULINARY MANAGER Inhaled Oxygen Concentration - - Weight 52.2 kg (115 lb) 06/06/2024 9:33 AM RESTAURANT CULINARY MANAGER Height 154.9 cm (5' 1) 06/06/2024 9:33 AM RESTAURANT CULINARY MANAGER Body Mass Index 21.73 06/06/2024 9:33 AM RESTAURANT CULINARY MANAGER documented in this encounter Discharge Instructions * Discharge Instructions* Marilia Summers MD - 06/06/2024 12:48 PM RESTAURANT CULINARY MANAGER With the amount of hydromorphone that you [...] work on your care plan with your pickle processor to see if they would be agreeable to getting you an appointment with pain clinic even while you are waiting to start the plasmapheresis to work a bit more on a home pain regimen for you. Continue to follow your care plan discussed with your pickle processor to treat your sickle cell pain crisis. Your next dose of dilaudid should not be before 2:30 pm. AURANT CULINARY MANAGER AURANT CULINARY MANAGER * Attachments The following attachments cannot be sent through Care Everywhere. * Naloxone Nasal [place] (NALOXONE SPRAY - NASAL) (Russian) * Drug Overdose: Opioid (Russian) documented in this encounter Medications at Time [...] 05/01/2024 naloxone (NARCAN) 4 MG/0.1ML nasal spray [place] 1 spray (4 mg) into one nostril [...] WDL WDL Cognitive/Neuro/Behavioral WDL Cognitive/Neuro/Behavioral WDL WDL AURANT CULINARY MANAGER * Marilia Summers MD - 06/06/2024 9:34 [...] our physician who is working with her pickle processor for the care plan. Per the patient [...] plans and they will talk with her pickle processor about the request for the patient to [...] do now have a major issue. Our secretary board of commissioners Hattie and our information security manager Augusto just saw the patient to get into the dump truck driver seat and drive away after being told specifically that she cannot drive and that she had told us that her significant other was driving in to pick herup. 1328 Our security did have her on video (as college intern concerned she did not get into a [...] Prescriptions NALOXONE (NARCAN) 4 MG/0.1ML NASAL SPRAY [place] 1 spray (4 mg) into one nostril [...] has been evaluated multiple times since in [place] and although she has a remote history [...] than previous suspect she was slightly dehydrated. [facility] Documentation Medical Decision Making [...] with other provider:Did you involve another provider (managed services sales consultant, , pharmacy, etc.)?: No Discharge.continue current meds The creation of this record is based on the scribe???s observations of the work being performed by Alex Ashby and the provider???s statements to them. This document has been checked and approved byMD Marilia Martinez MD Emergency Medicine [facility] Marilia Summers MD 06/06/24 1254 Marilia Summers MD 06/06/24 1257 Marilia Summers MD 06/06/24 1330 AURANT CULINARY MANAGER AURANT CULINARY MANAGER AURANT CULINARY MANAGER documented in this encounter Plan of Treatment Not on file documented as of this encounter Goals Goal Patient Goal Type Associated Problems Recent Progress Patient-Stated? Author Pain Management General On track( 025 12:40 PM RESTAURANT CULINARY MANAGER) Yes Juhi Benson, SOFIA Note: Goal [...] For 1 dose $Given 06/06/2024 10:22 AM RESTAURANT CULINARY MANAGER 50 mg heparin lock flush 10 unit/mL [...] each port lumen $Given 06/06/2024 1:13 PM RESTAURANT CULINARY MANAGER 5 mLs HYDROmorphone (DILAUDID) injection 2 mg 2 mg, Intravenous, EVERY 1 HOUR PRN, moderate pain, Starting on Wed06/06/24 at 0958, For 2 doses $Given 06/06/2024 11:31 AM RESTAURANT CULINARY MANAGER 2 mg $Given 06/06/2024 10:22 AM RESTAURANT CULINARY MANAGER 1 mg HYDROmorphone (DILAUDID) injection 2 mg 2 mg, Intravenous, ONCE, On Wed06/06/24 at 1300, For 1 dose $Given 06/06/2024 12:57 PM RESTAURANT CULINARY MANAGER 2 mg lactated ringers BOLUS 1,000 mL Intravenous, 1,000 mL, ONCE, On Wed06/06/24 at 1000, For 1 dose $New Bag 06/06/2024 10:12 AM RESTAURANT CULINARY MANAGER 1,000 mLs sodium chloride (PF) 0.9% PF [...] Recently Administered Medications Times are shown in RESTAURANT CULINARY MANAGER. Scheduled Medication Order 06/04/2024 06/05/2024 06/06/2024 heparin [...] lumen documented in this encounter Care Teams Taxi Cab Driver Relationship Specialty Start Date End Date No Ref-Primary, Physician PCP - General 03/15/24 06/17/24 Mor Ramsey Medical Student 04/03/24 Case Samuel MD [address] [place] [address] 484, [address] [place] [address] Assigned Pediatric Specialist Provider 05/18/24 Marcelino, Juhi, RN Specialty Laboratory Scientist Hematology & Oncology 05/29/24 documented as of this encounter
--- OUTSIDE RECORDS SUMMARY | 2024-06-25 16:16 | XMS_ITS | Encounter Summary ---
Author Organization [facility] Address [address] [place] [id number] Care Team Providers Care Nursery Technician Name Role Phone No Ref-Primary, Physician Primary Care Provider Mor Ramsey Unavailable Unavailable Case Samuel MD Unavailable [phone] Juhi Benson RN Unavailable Unavailable Reason for Visit * Reason Comments Chest Pain Sickle Cell Pain Crisis Encounter Details Date Type Department Care Team (Late st Contact Info) Description 06/03/2024 3:22 PM COTTON BAG CLIPPER - 06/03/2024 5:30 PM COTTON BAG CLIPPER Emergency [facility] Emergency Room [facility] [place] [address] Jennifer Bell MD [address] [place] [address] Sickle cell pain crisis (H) Discharge Disposition: [...] on file Legal Sex Female 8:25 AM COTTON BAG CLIPPER Gender Identity Not on file Sexual Orientation Not on file documented as of this encounter Last Filed Vital Signs Vital Sign Reading Time Taken Comments Blood Pressure 117/57 06/03/2024 5:00 PM COTTON BAG CLIPPER Pulse 96 06/03/2024 5:00 PM COTTON BAG CLIPPER Temperature 36.3 C (97.4 F) 06/03/2024 3:23 PM COTTON BAG CLIPPER Respiratory Rate 17 06/03/2024 5:00 PM COTTON BAG CLIPPER Oxygen Saturation 96% 06/03/2024 5:00 PM COTTON BAG CLIPPER Inhaled Oxygen Concentration - - Weight 52.2 kg (115 lb) 06/03/2024 3:23 PM COTTON BAG CLIPPER Height 154.9 cm (5' 1) 06/03/2024 3:23 PM COTTON BAG CLIPPER Body Mass Index 21.73 06/03/2024 3:23 PM COTTON BAG CLIPPER documented in this encounter Discharge Instructions * Attachments The following attachments cannot be sent through Care Everywhere. * Sickle Cell Crisis ([place]) documented in this encounter Medications at Time [...] PM CST EMERGENCY DEPARTMENT ENCOUNTER NAME: Gianna Hernánedz AGE: [age] year old female DATE OF [...] testing initially patient had labs done at [facility] ER earlier this morning as [...] external records: External records reviewed?: Outpatient Record: [facility] today (06/03/24) Care impacted by chronic illness:Other: Sickle Cell Disease Did you consider but not order tests?: Work up considered but not performed and documented in chart, if applicable Did you interpret images independently?: Independent interpretation of ECG and images noted in documentation, when applicable. Consultation discussion with other provider:Did you involve another provider (business analyst consultant, , pharmacy, etc.)?: No Discharge. I [...] 10-20 mL (10 mLs Intracatheter $Given 06/03/24 6859) heparin lock flush 10 unit/mL injection 5-10 [...] her sickle cell pain. Patient presented to [facility] this morning due to sickle cell crisis and has labs, covid, flu, RSV, and chest x-ray which were all negative. She usually visits [facility] ED when her pain presents but she did not want to drive far with the [employer]. According to patient, they didn't believe her sickle cell disease, so they discharged patient with no stronger pain medications so she decided to come here. Patient is afebrile. There were no other concerns/complaints at this time. Chart Review: - Patient presented to [facility] today for her sickle cell pain crisis. [...] Rate 85 BPM Atrial Rate 85 BPM NJ Interval 136 ms QRS Duration 82 ms QT 382 ms QTc 454 ms P [place] 54 degrees R AXIS 72 degrees T [place] 50 degrees Interpretation ECG Sinus rhythm Nonspecific T wave abnormality Abnormal ECG When compared with ECG of 27-May-2024 12:12, No significant change was found Confirmed by SEE ED PROVIDER NOTE FOR, ECG INTERPRETATION (4000), primer expeditor and drier BEN PRAKASH ([id number]) on 06/03/2024 3:58:10 PM EKG: Performed at: 03-Jun-2024 15:24:43 Impression: Sinus rhythm, nonspecific T wave abnormality, abnormal ECG Rate: 85 Rhythm: Sinus [place]: 72 NJ Interval: 136 QRS Interval: 82 QTc Interval: [...] behalf by Alex Parsons, a trained medical coding auditor. This document has been checked and approved by the attending provider. Jennifer Bell MD Emergency Medicine [facility] EMERGENCY ROOM [address] [address] Dept: [phone] Jennifer Bell MD 06/03/24 1703 ON BAG CLIPPER * Nedra Martin RN - 06/03/2024 3:23 PM CST Pt c/o a possible sickle cell crisis with right sided chest pain that radiates to the left side. The pt did attempt to try using her home medication of diluadid of 4 mg without relief. Was just seen at [facility]. Pt has a port. Triage Assessment [...] WDL WDL Cognitive/Neuro/Behavioral WDL Cognitive/Neuro/Behavioral WDL WDL ON BAG CLIPPER documented in this encounter Plan of Treatment Not on file documented as of this encounter Goals Goal Patient Goal Type Associated Problems Recent Progress Patient-Stated? Author Pain Management General On track( 025 12:40 PM COTTON BAG CLIPPER) Yes Juhi Benson, RN Note: Goal Statement: [...] WITH MUSE MAHOGANYShawanda,SJO,WWRocio STAT 06/03/2024 3:24 PM COTTON BAG CLIPPER documented in this encounter Results * ECG 12-LEAD WITH MUSE (LHE) (06/03/2024 3:24 PM COTTON BAG CLIPPER) Systolic Blood Pressure 131 mmHg RADIOLOGY RESULTS Diastolic Blood Pressure 76 mmHg RADIOLOGY RESULTS Ventricular Rate 85 BPM RAD IOLOGY RESULTS Atrial Rate 85 BPM RADIOLOG Y RESULTS NJ Interval 136 ms RADIOLOG Y RESULTS QRS Duration 82 ms RADIOLO GY RESULTS QT 382 ms RADIOLOGY RESULTS QTc 454 ms RADIOLOGY RESULTS P [place] 54 degrees RADIOLOGY RESULTS R AXIS 72 degrees RADIOLOGY RESULTS T [place] 50 degrees RADIOLOGY RESULTS Interpretation ECG Sinus rhythm Nonspecific T wave abnormality Abnormal ECG When compared with ECG of 27-May-2024 12:12, No significant change was found Confirmed by SEE ED PROVIDER NOTE FOR, ECG INTERPRETATION (4000), primer expeditor and drier BEN PRAKASH ([id number]) on 06/03/2024 3:58:10 PM RADIOLOGY RESULTS 06/03/2024 3:24 PM COTTON BAG CLIPPER 06/03/2024 3:58 PM COTTON BAG CLIPPER us Deshawn Arredondo MD ECG ORDERABLES Edited [...] For 1 dose $Given 06/03/2024 4:18 PM COTTON BAG CLIPPER 50 mg heparin lock flush 10 unit/mL [...] the heparin flush. $Given 06/03/2024 5:20 PM COTTON BAG CLIPPER 5 mLs heparin lock flush 100 unit/mL [...] For 3 doses $Given 06/03/2024 4:48 PM COTTON BAG CLIPPER 2 mg $Given 06/03/2024 3:46 PM COTTON BAG CLIPPER 2 mg lactated ringers BOLUS 1,000 mL Intravenous, 1,000 mL, ONCE, at 500 mL/hr, Administer over 2 Hours, On 06/03/24 at 1530, For 1 dose $New Bag 06/03/2024 3:51 PM COTTON BAG CLIPPER 1,000 mLs 500 mL/hr ondansetron (ZOFRAN) injection 8 mg 8 mg, Intravenous, ONCE, Administer over 2-5 Minutes, On 06/03/24 at 1530, For 1 dose $Given 06/03/2024 3:46 PM COTTON BAG CLIPPER 8 mg sodium chloride (PF) 0.9% PF [...] each port lumen. $Given 06/03/2024 3:51 PM COTTON BAG CLIPPER 10 mLs documented in this encounter Active and Recently Administered Medications Times are shown in COTTON BAG CLIPPER. Scheduled Medication Order 06/01/2024 06/02/2024 06/03/2024 diphenhydrAMINE [...] lumen documented in this encounter Care Teams Nursery Technician Relationship Specialty Start Date End Date No Ref-Primary, Physician PCP - General 03/15/24 06/17/24 Mor Ramsey Medical Student 04/03/24 Case Samuel MD [address] [place] [address], [address] [place] [address] Assigned Pediatric Specialist Provider 05/18/24 Juhi Benson, SOFIA Specialty Sample Processor Hematology & Oncology 05/29/24 documented as of this encounter
--- OUTSIDE RECORDS SUMMARY | 2024-06-25 16:16 | XMS_ITS | Encounter Summary ---
Author Organization [facility] Address [address] [place] [address]. [place] [address] Care Team Providers Care Master Hearth Technician Name Role Phone No Ref-Primary, Physician Primary Care Provider Mor Ramsey Unavailable Unavailable Case Samuel MD Unavailable [phone] Juhi Benson RN Unavailable Unavailable Reason for Visit * Reason Comments Sickle Cell Pain Crisis Encounter Details Date Type Department Care Team (Late st Contact Info) Description 06/07/2024 10:00 AM FITTER ARMAMENT - 06/07/2024 10:45 AM [facility] Emergency [facility] Emergency Room [facility] [place] [address] Bernabe Farley MD [facility] [address] [place] [address] Chest pain, unspecified type; Fever, unspecified fever [...] on file Legal Sex Female 8:25 AM FITTER ARMAMENT Gender Identity Not on file Sexual Orientation Not on file documented as of this encounter Last Filed Vital Signs Vital Sign Reading Time Taken Comments Blood Pressure 108/63 06/07/2024 9:59 AM FITTER ARMAMENT Pulse 84 06/07/2024 9:59 AM FITTER ARMAMENT Temperature 36.6 C (97.9 F) 06/07/2024 9:59 AM FITTER ARMAMENT Respiratory Rate 19 06/07/2024 9:59 AM FITTER ARMAMENT Oxygen Saturation 100% 06/07/2024 9:59 AM FITTER ARMAMENT Inhaled Oxygen Concentration - - Weight 52.2 kg (115 lb) 06/07/2024 9:59 AM FITTER ARMAMENT Height - - Body Mass Index 21.73 06/06/2024 9:33 AM FITTER ARMAMENT documented in this encounter Medications at Time [...] 05/01/2024 naloxone (NARCAN) 4 MG/0.1ML nasal spray [place] 1 spray (4 mg) into one nostril [...] did not want to wait for a wheat combine driver so she would like to leave at this time. MD and charge informed. ER ARMAMENT * Bernabe Farley MD - 06/07/2024 10:04 [...] she unfortunately left by car as the wheat combine driver after stating to staff that she [...] Additional ED Course timestamps entered by medical delivery driver: 10:12 AM I met with the patient [...] at this time. Per Chart Review: 06/06/24, [facility] ED: Patient presented for sickle cell related [...] our physician who is working with her test engineer nuclear equipment for the care plan. Per the patient [...] she shows signs of opiate overdose. Our sales secretary Hattie and our security developer Jagdeep both just saw the patient to get into the wheat combine driver seat and drive away after being [...] direction. Bernabe Farley M.D. Emergency Medicine [facility] EMERGENCY ROOM [address] [facility] [address] Dept: [phone] Bernabe Farley MD 06/07/24 1045 ER ARMAMENT * Yanely Avendano RN - 06/07/2024 10:04 AM CST Pt here in sickle cell crisis for the 3rd day. Yesterday she received a lot of IV dilaudid and then drove home after told not to. Upon arrival here she repeatedly told this marine underwriter she was dropped off but after reviewing the security camera she is clearly driving in and getting out of the wheat combine driver seat. Provider notified. Reports chest pain today. Last dose of oral was 2 hours ago. Triage Assessment (Adult) Row Name 06/07/24 0959 Triage Assessment Airway WDL WDL Respiratory WDL Respiratory WDL WDL Skin Circulation/Temperature WDL Skin Circulation/Temperature WDL WDL Cardiac WDL Cardiac WDL WDL Peripheral/Neurovascular WDL Peripheral Neurovascular WDL WDL Cognitive/Neuro/Behavioral WDL Cognitive/Neuro/Behavioral WDL WDL ER ARMAMENT documented in this encounter Plan of Treatment Not on file documented as of this encounter Goals Goal Patient Goal Type Associated Problems Recent Progress Patient-Stated? Author Pain Management General On track( 025 12:40 PM FITTER ARMAMENT) Yes Juhi Benson, RN Note: Goal Statement: [...] Recently Administered Medications Times are shown in FITTER ARMAMENT. Scheduled Medication Order 06/05/2024 06/06/2024 06/07/2024 heparin [...] Out COVID-19 06/07/2024 06/07/2024 06/07/2024 12:50 PM FITTER ARMAMENT documented as of this encounter Care Teams Master Hearth Technician Relationship Specialty Start Date End Date No Ref-Primary, Physician PCP - General 03/15/24 06/17/24 Mor Ramsey Medical Student 04/03/24 Case Samuel MD [address] [place] [address], [address] [place] [address] Assigned Pediatric Specialist Provider 05/18/24 Juhi Benson, RN Specialty Finance Mgr Hematology & Oncology 05/29/24 documented as of this encounter
--- OUTSIDE RECORDS SUMMARY | 2024-06-25 16:17 | XMS_ITS | Encounter Summary ---
Author Organization [employer] Address [address] [place] [address]. [place] [address] Care Team Providers Care Flue Lining Dipper Name Role Phone No Ref-Primary, Physician Primary Care Provider Mor Ramsey Unavailable Unavailable Case Samuel MD Unavailable [phone] Juhi Benson RN Unavailable Unavailable Veronica Joseph MD Primary Care Provider [phone] Reason for Visit * Reason Comments Shortness of Breath Chest Pain Fever * Auth/Cert Specialty Diagnoses / Procedures Referred By Contac t Referred To Contact EMERGENCY MEDICINE Diagnoses Sickle cell pain crisis (H) [facility] Emergency Department [address] [place] [address] Phone: tel: Referral ID Status Reason Start Date Expiration Date Visits Re quested Visits Authorized [id number] 1 1 Encounter Details Date Type Department Care Team (Late st Contact Info) Description 06/16/2024 4:46 PM HANDMADE TILE ARTIST - 06/20/2024 11:00 AM HANDMADE TILE ARTIST Hospital Encounter [facility] 7C Med Surg [address] [place] [phone] Abimael Schofield MD [address] [place] [address] [id number] Esdras Markham MD [address] [place] [address] German Hall MD [address] [place] [address] [address] [place] [address] Sickle cell pain crisis (H) [...] on file Legal Sex Female 8:25 AM HANDMADE TILE ARTIST Gender Identity Not on file Sexual Orientation Not on file documented as of this encounter Last Filed Vital Signs Vital Sign Reading Time Taken Comments Blood Pressure 106/62 06/20/2024 6:00 AM HANDMADE TILE ARTIST Pulse 78 06/19/2024 2:25 PM HANDMADE TILE ARTIST Temperature 36.7 C (98 F) 06/20/2024 6:00 AM HANDMADE TILE ARTIST Respiratory Rate 18 06/20/2024 6:00 AM HANDMADE TILE ARTIST Oxygen Saturation 99% 06/20/2024 6:00 AM HANDMADE TILE ARTIST Inhaled Oxygen Concentration - - Weight - - Height - - Body Mass Index - - documented in this encounter Discharge Summaries * Rl Elias MD - 06/20/2024 8:39 AM CST [facility] Discharge Summary - Medicine & Pediatrics Date [...] her pain can be managed with her [employer] dilaudid 4mg q6h PRN. Hematology team is aware of discharge today and will arrange follow up. - continue CLOTHES [employer]INGER dilaudid 4 mg Q6H PRN & further supportive cares as needed - follow up with Hematology as scheduled by their team - Continue CLOTHES [employer]INGER hydroxyurea 1000mg BID - Continue CLOTHES [employer]INGER folic acid 1mg daily - Continue topical diclofenac, lidocaine, icy hot PRN #ANGIE, resolved Likely prerenal with decreased PO intake. Cr 0.92 on admission, baseline ~0.61- 0.7. Improved with maintenance fluids. Encouraged adequate water intake at home. #Insomnia - melatonin 3 mg PRN #Anxiety - Continue CLOTHES WRINGER fluoxetine Consultations This Hospital Stay HEMATOLOGY ADULT IP CONSULT CARE MANAGEMENT / SOCIAL WORK IP CONSULT Code Status Full Code Nivia Carvajal, MS3 Ricardo 1 Hospitalist Service [facility] 7C MED SURG [address] [facility] [address] Physical Exam Vital Signs: Temp: 98 ??F [...] Thefollowing labs/tests are recommended: CBC. Appointments on [place] and/or [facility] (with [facility] or [facility] provider or service). Call [phone] if you haven't heard regarding these appointments [...] inadequate. naloxone (NARCAN) 4 MG/0.1ML nasal spray Hinkle 1 spray (4 mg) into one nostril [...] Aydee Coughlin MD at 06/20/2024 11:52 AM HANDMADE TILE ARTIST MADE TILE ARTIST MADE TILE ARTIST Associated attestation - Adyee Coughlin MD - 06/20/2024 11:52 AM HANDMADE TILE ARTIST Physician Attestation I saw and evaluated this [...] 05/01/2024 naloxone (NARCAN) 4 MG/0.1ML nasal spray Hinkle 1 spray (4 mg) into one nostril [...] stated on the papers. Home supply :N/A. MADE TILE ARTIST * Araceli Ramires MD - 06/20/2024 8:42 [...] Overall, I spent 35 minutes today (DOS) [id number] and/or coordinating care as documented above and specifically listed as below: --Reviewing documentation related to patient's history and this current admission available in [employer] --Review and clinical interpretation of pertinent laboratory test results from this admission --Discussion with the patient --Discussion with patient's primary team --Documentation in the electronic health record MADE TILE ARTIST * Linda Lomax MD - 06/19/2024 7:43 [...] Service (when I saw the patient): 06/19/24 [facility] Progress Note - Medicine Service, MAROON TEAM [...] senna PRN for supportive measures - Continue CL[employer]INGER hydroxyurea 1000mg BID - Continue CL[employer]ER folic acid 1mg daily - Monitoring CBC [...] melatonin 3 mg PRN #Anxiety - Continue CLOTH[employer]INGER fluoxetine - Benadryl PRN per Pain Plan [...] Nivia Carvajal, MS3 Medical Student Medicine Service, [address] Securely message with [employer] info) Text page via [facility] Paging/Directory See signed in provider for [...] previous visit (from the past 24 hours). MADE TILE ARTIST * Tejal Curry RN - 06/18/2024 6:54 PM CST Shift: [id number] VS: Temp: 98.3 ??F (36.8 ??C) Temp [...] light appropriately Plan: Continue POC; manage pain MADE TILE ARTIST * Linda Lomax MD - 06/18/2024 10:18 AM CST [facility] Progress Note - Medicine Service, MAROON TEAM [...] benadryl, senna PRN for supportive measures -Continue CL[employer]INGER hydroxyurea 1000mg BID -Continue CL[employer]INGER folic acid 1mg daily - monitoring CBC w/diff, LDH, reticulocyte count, and LDH daily - type & screened, consented - continue topical diclofenac, lidocaine, icy hot PRN - blood cultures, urine culture >> NGTD #ANGIE, resolved Likely prerenal with decreased PO intake. - mIVF with LR - CMP in AM #Insomnia - Continue CL[employer]INGER fluoxetine - melatonin 3 mg PRN Diet: [...] Hall . Linda Lomax MD Medicine Service, [facility] TEAM [address] [place] [address] Securely message with [employer] (more info) Text page via [facility] Paging/Directory See signed in provider for [...] German Hall MD at 06/18/2024 3:16 PM HANDMADE TILE ARTIST MADE TILE ARTIST MADE TILE ARTIST Associated attestation - German Hall MD - 06/18/2024 3:16 PM HANDMADE TILE ARTIST Attestation: This patient has been seen and [...] Overall, I spent 35 minutes today (DOS) [id number] and/or coordinating care as documented above and specifically listed as below: --Reviewing documentation related to patient's history and this current admission available in [employer] --Review and clinical interpretation of pertinent laboratory test results from this admission --Discussion with the patient --Discussion with patient's primary team --Documentation in the electronic health record MADE TILE ARTIST * Rl Elias MD - 06/17/2024 11:31 AM CST [facility] Progress Note - [facility] Date of Admission: 06/16/2024 Assessment [...] benadryl, senna PRN for supportive measures -Continue [employer]ER hydroxyurea 1000mg BID -Continue [employer]ER folic acid 1mg daily - monitoring CBC w/diff, LDH, reticulocyte count, and LDH daily - type & screened, consented - continue topical diclofenac, lidocaine, icy hot PRN - blood cultures, urine culture to evaluate any further source of infection #ANGIE Likely prerenal with decreased PO intake. - mIVF with LR - CMP in AM #Insomnia - Continue CL[employer]ER fluoxetine - melatonin 3 mg PRN Diet: [...] Hall . RL ELIAS MD Medicine Service, [address] Securely message with [employer] ([employer] info) Text page via [facility] Paging/Directory See signed in provider for [...] Narrative EXAM: XR CHEST 2 VIEWS LOCATION: [facility] DATE: 06/16/2024 INDICATION: chest pain COMPARISON: 06/12/2024 Impression IMPRESSION: Left chest port catheter in stable position. Stable position of right central venous catheter. No airspace opacity, pleural effusion or pneumothorax. Cosigned by German Hlal MD at 06/18/2024 3:07 PM HANDMADE TILE ARTIST MADE TILE ARTIST MADE TILE ARTIST MADE TILE ARTIST Associated attestation - German Hall MD - 06/18/2024 3:07 PM HANDMADE TILE ARTIST Attestation: This patient has been seen and evaluated by me, German Hall MD. Discussed with the house staff team or resident(s) and agree with the findings and plan in this note. I have reviewed today's Medications, Vital Signs, and Labs. DOS 06/17 documented in this encounter H&P Notes * Laquita Kelley MD - 06/16/2024 7:59 PM CST [facility] History and Physical - Medicine Service, [facility]AS [...] IV -mIVF with NS at 100ml/hr -Continue CL[employer]ER hydroxyurea 1000mg BID -Continue [employer] folic acid 1mg -PRN zofran for nausea -PRN benadryl for itching #ANGIE Likely prerenal with decreased PO intake. -mIVF with NS -Monitor #Insomnia -Continue CLOTH[employer]INGER fluoxetine Diet: Regular DVT Prophylaxis: Enoxaparin (Lovenox) SQ Santiago Catheter: Not present Fluids: NS at 100ml/hr Lines: PRESENT Cardiac Monitoring: None Code Status: Full Clinically Significant Risk Factors Present on Admission # Anemia: based on hgb <11 # Financial/Environmental Concerns: Disposition Plan Expected Discharge Date: 06/18/2024 The patient's care was discussed with the Attending Physician, Dr. Markham . 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, had port-a-cath in [facility] Functional asplenia Gallstones Hb-SS disease without [...] 4 MG/0.1ML nasal spray No No Sig: Hinkle 1 spray (4 mg) into one nostril [...] Esdras Markham MD at 06/17/2024 11:00 AM HANDMADE TILE ARTIST MADE TILE ARTIST MADE TILE ARTIST Associated attestation - Esdras Markham MD - 06/17/2024 11:00 AM HANDMADE TILE ARTIST Physician Attestation I saw this patient with [...] this encounter Consult Notes * CurtisAdelaide beltran, [employer] - 06/18/2024 10:26 AM CSTAssociated Order(s): CARE [...] Communication Assessment Patient's communication style: spoken language (Equ[place]inean or Bilingual) Cognitive Cognitive/Neuro/Behavioral: WDL Living Environment: [...] Depression: Not at risk (04/11/2024) [facility] PHQ-2 [...] Social Connections: Socially Integrated (03/28/2024) Received from [facility] Social [...] No Current Concerns Values/Beliefs: Spiritual, Cultural Beliefs, Mormonism Practices, Values that affect care: no Discussed [...] Care management signing off. LAURA Palacios 06/18/2024 Mechanic'S Assistant Social Work and Care Management Department SEARCHABLE in [employer] - search SOCIAL WORK [place] [phone]) Wednesday and Wednesday Units: 4A Vocera, 4C Vocera, & 4E Vocera Units: 5A 0302-2343 Vocera, 5A 0761-3544 Vocera , BMT SW 1 BMT SW 2, BMT SW 3 & BMT SW 4 5C OffService 5401 - 5435 5C Off Service [phone] Units: 6A Vocera & 6B Vocera Units: 6C Vocera Units: 7A Vocera & 7B Vocera Units: 7C Med Surg 7401 thru 7418 and 7C Med Surg 7502 thru 7521 Unit: [place] ED Vocera & [place] Obs Vocera [facility] ([phone]) Wednesday and Wednesday Units: 5 Ortho Vocera, 5 Med Surg Vocera & WB ED Vocera Units: 6 Med Surg Vocera, 8 Med Surg Vocera, & 10 ICU Vocera After hours Vocera [facility] and After Hours Vocera [place] Please NOTE changes to times below: Wednesday & Wednesday (1629 - 2029) Wed-Fri (2626-8228) [facility] Recognized Holidays ([phone]) Units: ALL - see above VOCERA links to units MADE TILE ARTIST * Drake Nina MD - 06/17/2024 8:55 AM CSTAssociated Order(s): HEMATOLOGY ADULT IP CONSULT Images from the original note were not included. Hematology Consult Note Date of Service: 06/17/2024 Patient: Gianna Hernández Admission Date: 06/16/2024 Hospital Day # 1 Hematology Diagnosis: Sickle Cell Disease Primary Outpatient Refractory Repairer: Dr. Samuel Reason for Consult: Vasoocclusive pain [...] the care coordination note. Please continue her CLOTHES [employer]INGER hydrea and folic acid. Recommendations: - Please follow pain plan as outlined in the care coordination note in the summary section. - Ordered 1 unit PRBC along with blood consent which is placed in the chart. - Please continue CLOTHES [employer]INGER hydrea 1000 mg BID, Folate 1mg daily. [...] Drake Nina MD Hematology/Oncology/BMT Fellow PGY4 Pager: [phone] History of Present Illness: Gianna Hernández is [...] Currently Drug use: Never Social History Narrative Juqm-aw-tuqt mom. Recently moved to [place] from [place], [place]. She is 1 of [...] Socially Integrated (03/28/2024) Received from [facility] [...] chloride 0.9 % infusion Intravenous Continuous Abimael Schofiled MD 100 mL/hr at 06/17/24 0735 New [...] inadequate. naloxone (NARCAN) 4 MG/0.1ML nasal spray Hinkle 1 spray (4 mg) into one nostril [...] Araceli Ramires MD at 06/17/2024 11:14 AM HANDMADE TILE ARTIST MADE TILE ARTIST MADE TILE ARTIST Associated attestation - Araceli Ramires MD - 06/17/2024 11:14 AM HANDMADE TILE ARTIST Hematology Consult Attending Attestation I reviewed the [...] Overall, I spent 60 minutes today (DOS) towj-lm-cyio and/or coordinating care as documented above and specifically listed as below: --Reviewing documentation related to patient's history and this current admission available in [facility] --Review and clinical interpretation of pertinent [...] time: Means of arrival: Comments: G 41 MADE TILE ARTIST * Abimael Schofield MD - 06/16/2024 5:18 PM CST ED Provider Note [facility] History Chief Complaint Patient presents with [...] sinus tachycardia rate of 122 with a DE interval of 0.128 and a QRS duration of 0.074. The patient had a normal axis with no acute ST or T wave changes significant for ischemia. This is read by me personally. Procedures Results for orders placed or performed during the hospital encounter of 06/16/24 Chest XR, PA & LAT Status: None Narrative EXAM: XR CHEST 2 VIEWS LOCATION: [facility] DATE: 06/16/2024 INDICATION: chest pain COMPARISON: 06/12/2024 [...] Range ABO/RH(D) A POS SPECIMEN EXPIRATION DATE [id number] CBC with platelets differential Status: Abnormal (In process) Narrative The following orders were created for panel order CBC with platelets differential. Procedure Abnormality Status --------- ------ CBC with platelets and d...[[id number]] Abnormal Preliminary result RBC and Platelet Morphology[[id number]] In process Please view results for these tests on the individual orders. ABO/Rh type and screen Status: None (In process) Narrative The following orders were created for panel order ABO/Rh type and screen. Procedure Abnormality Status --------- ------ Adult Type and Screen[[id number]] Preliminary result Please view results for these tests on the individual orders. Medications sodium chloride (PF) 0.9% PF flush 3 mL (has no administration in time range) sodium chloride (PF) 0.9% PF flush 3 mL (has no administration in time range) sodium chloride 0.9% BOLUS 500 mL (500 mLs Intravenous $New Bag 06/16/24 3045) sodium chloride 0.9 % infusion (has no administration in time range) hydromorphone (DILAUDID) injection 2 mg (2 mg Intravenous $Given 06/16/24 0249) Critical care was not performed. Medical Decision [...] Admit Med Abimael Schofield MD [facility] EMERGENCY DEPARTMENT 06/16/2024 Abimael Schofield MD 06/16/24 1846 MADE TILE ARTIST * Yelitza Manriquez RN - 06/16/2024 4:37 [...] WDL WDL Cognitive/Neuro/Behavioral WDL Cognitive/Neuro/Behavioral WDL WDL MADE TILE ARTIST documented in this encounter Miscellaneous Notes * [...] verbalized hope to discharge to home today MADE TILE ARTIST * Summary of Care - Rene Morocho [...] (January-July only): No, pt declined Detailed Belongings: [place] sweater, brown jacket, sweatpants, glasses, wallet, phone, 2 chargers, air pods MADE TILE ARTIST * Plan of Care - Sarai Shrestha RN - 06/20/2024 12:11 AM CST Goal Outcome Evaluation: BP 103/79,HR 87bpm, resp 18,O2 99 RA Shift:7857-3249 Alert and oriented x4. Independent with ADLs. VSS. Pain managed with Q 2 hrs IV Dilaudid. C/O nausea PRN Zofran administered;effective. R chest port infusing LR @ 75 ml/hr. Report given to Rene BLACK in 7C. MADE TILE ARTIST * Plan of Care - Amelia Gannon RN - 06/19/2024 6:26 AM CST Images from the original note were not included. Shift: 2121-3055 VS: BP 118/85 (BP Location: Left arm) Pulse 99 Temp 98.2 ??F (36.8 ??C) (Oral) Resp 18 [id number]% Pain: Sickle cell pain. Tx with scheduled dilaudid q2hr Neuro: WDL, A&Ox4 Cardiac: WDL Respiratory: WDL, on RA, on pulse ox GI/: WDL, Voiding spontaneously Diet/Appetite: Regular diet LDA's: R. Chest port infusing LR @ 75 Skin: WDL Activity: Independent Tests/Procedures: Pertinent Labs/Lab Collection: Plan: Goal Outcome Evaluation: MADE TILE ARTIST * Plan of Care - Adelaide Acevedo MSW - 06/18/2024 11:05 AM CST Goal Outcome Evaluation: Plan of Care Reviewed With: patient Overall Patient Progress: improvingOverall Patient Progress: improving Pt anticipates discharge home w/ family once med ready MADE TILE ARTIST * Plan of Care - Amelia Gannon RN - 06/18/2024 6:51 AM CST Shift: 6278-2195 VS: BP 115/66 (BP Location: Right arm, [...] Platelet, Creatinine, Reticulocyte Plan: Goal Outcome Evaluation: MADE TILE ARTIST * Plan of Care - Lowell Pepper RN - 06/17/2024 9:37 PM CSTSummary: 2596-0770 BP 110/64 (BP Location: Right arm, Patient [...] Goal: Optimal Comfort and Wellbeing Outcome: Progressing MADE TILE ARTIST * Provider Notification - Lowell Pepper RN - 06/17/2024 10:00 AM CST 06/17/24 0857 Critical Test Results/Notification Critical Lab Result (Lab Name and Value) Hgb 6.3 What Time Did The Lab Notify You? (follow up page. to day time provider.) Provider Notified yes Date of Provider Notification 06/17/24 Time of Provider Notification 0848 Mechanism of Provider notification telephone (via [employer]) What Provider Did You Notify? Neptali Elias MD Response aware (per primary teams. Awaiting recommendations from hematology team.) MADE TILE ARTIST * Plan of Care - Zaynab Veliz RN - 06/17/2024 6:55 AM CST Goal Outcome Evaluation: Plan of Care Reviewed With: patient Overall Patient Progress: improving Outcome Evaluation: Pt presented to ED with acute onset left sided chest pain & sickle cell pain crisis Shift: 4101-6817 VS: Stable on RA, afebrile Neuro: A&Ox4 Labs: hemoglobin 6.3, provider notified Pain/Nausea: pain rated 8-9/10 PRN: benadryl X2, zofran x 1 Diet: Regular IV Access: none Infusion(s): NACL 100ml/hr Lines/Drains: L-chest wall GI/: voids without difficulty Skin: intact Mobility: up ad chandler Plan: Continue POC MADE TILE ARTIST * Provider Notification - Zaynab Veliz RN - 06/17/2024 6:47 AM HANDMADE TILE ARTIST Jovan encinas lab called, critical value, pt hemoglobin 6.3. MADE TILE ARTIST * Medication Scribe - Admission Medication History - Yennifer Edwards - 06/17/2024 4:14 AM CST Medication Scribe Admission Medication History Admission medication history is complete. The information provided in this note is only as accurateas the sources available at the time of the update. Information Source(s): Patient via in-person Pertinent Information: per pt+CE, pt reported taking medications on [employer]ES [employer]INGER medication list as directed. No DRH. Changes made to CL[employer] medication list: Added: None Deleted: None Changed: None Allergies reviewed with patient and updates made in EHR: yes Medication History Completed By: Yennifer Edwards 06/17/2024 4:14 AM CLOTHES [employer]INGER Med List Medication Sig Last Dose/Taking cefpodoxime [...] 1 tablet by mouth daily. 06/16/2024 Morning MADE TILE ARTIST MADE TILE ARTIST documented in this encounter Plan of Treatment Not on file documented as of this encounter Goals Goal Patient Goal Type Associated Problems Recent Progress Patient-Stated? Author Pain Management General On track( 025 12:40 PM HANDMADE TILE ARTIST) Yes Juhi Benson, SOFIA Note: Goal Statement: [...] PLATELETS AND DIFFERENTIAL STAT 06/20/2024 5:48 AM HANDMADE TILE ARTIST LACTATE DEHYDROGENASE Routine 06/20/2024 5:48 AM HANDMADE TILE ARTIST CBC WITH PLATELETS & DIFFERENTIAL STAT 06/20/2024 5:48 AM HANDMADE TILE ARTIST RETICULOCYTE COUNT Routine 06/20/2024 5: 48 AM HANDMADE TILE ARTIST COMPREHENSIVE METABOLIC PANEL Routine 06/20/2024 5:48 AM HANDMADE TILE ARTIST RBC AND PLATELET MORPHOLOGY STAT 06/19/2024 9:30 AM HANDMADE TILE ARTIST CBC WITH PLATELETS AND DIFFERENTIAL STAT 06/19/2024 9:30 AM HANDMADE TILE ARTIST LACTATE DEHYDROGENASE STAT 06/19/2024 9:30 AM HANDMADE TILE ARTIST CBC WITH PLATELETS & DIFFERENTIAL STAT 06/19/2024 9:30 AM HANDMADE TILE ARTIST RETICULOCYTE COUNT STAT 06/19/2024 9: 30 AM HANDMADE TILE ARTIST COMPREHENSIVE METABOLIC PANEL STAT 06/19/2024 9:30 AM HANDMADE TILE ARTIST PLATELET COUNT STAT 06/19/2024 12:17 AM HANDMADE TILE ARTIST CREATININE STAT 06/19/2024 12:17 AM HANDMADE TILE ARTIST CBC WITH PLATELETS AND DIFFERENTIAL STAT 06/18/2024 8:24 AM HANDMADE TILE ARTIST LACTATE DEHYDROGENASE STAT 06/18/2024 8:24 AM HANDMADE TILE ARTIST CBC WITH PLATELETS & DIFFERENTIAL STAT 06/18/2024 8:24 AM HANDMADE TILE ARTIST RETICULOCYTE COUNT STAT 06/18/2024 8: 24 AM HANDMADE TILE ARTIST DIFFERENTIAL STAT 06/18/2024 8:24 AM HANDMADE TILE ARTIST COMPREHENSIVE METABOLIC PANEL STAT 06/18/2024 8:24 AM HANDMADE TILE ARTIST ROUTINE UA WITH MICROSCOPIC REFLEX TO CULTURE STAT 06/17/2024 1:11 PM HANDMADE TILE ARTIST TRANSFUSE RED BLOOD CELLS (UNIT) STAT 06/17/2024 10:26 AM HANDMADE TILE ARTIST PREPARE RED BLOOD CELLS (UNIT) STAT 06/17/2024 9:12 AM HANDMADE TILE ARTIST TRANSFERRIN Add-On 06/17/2024 6:16 AM HANDMADE TILE ARTIST IRON AND IRON BINDING CAPACITY Add-On 06/17/2024 6:16 AM HANDMADE TILE ARTIST BASIC METABOLIC PANEL STAT 06/17/2024 6:16 AM HANDMADE TILE ARTIST CBC WITH PLATELETS STAT 06/17/2024 6: 16 AM HANDMADE TILE ARTIST TROPONIN T, HIGH SENSITIVITY STAT 06/16/2024 9:33 PM HANDMADE TILE ARTIST XR CHEST 2 VIEWS STAT 06/16/2024 6:09 PM HANDMADE TILE ARTIST RBC AND PLATELET MORPHOLOGY STAT 06/16/2024 5:37 PM HANDMADE TILE ARTIST CBC WITH PLATELETS AND DIFFERENTIAL STAT 06/16/2024 5:37 PM HANDMADE TILE ARTIST TYPE AND SCREEN, ADULT STAT 5:37 PM HANDMADE TILE ARTIST TROPONIN T, HIGH SENSITIVITY STAT 06/16/2024 5:37 PM HANDMADE TILE ARTIST CBC WITH PLATELETS & DIFFERENTIAL STAT 06/16/2024 5:37 PM HANDMADE TILE ARTIST PROLACTIN STAT 06/16/2024 5:37 PM HANDMADE TILE ARTIST COMPREHENSIVE METABOLIC PANEL STAT 06/16/2024 5:37 PM HANDMADE TILE ARTIST BLOOD CULTURE STAT 06/16/2024 5:37 PM HANDMADE TILE ARTIST ABO/RH TYPE AND SCREEN STAT 5:37 PM HANDMADE TILE ARTIST EKG 12-LEAD, TRACING ONLY STAT 06/16/2024 4:55 PM HANDMADE TILE ARTIST documented in this encounter Results * (ABNORMAL) CBC with platelets and differential (06/20/2024 5:48 AM HANDMADE TILE ARTIST) WBC Count 9.3 4.0 - 11.0 10e3/uL 06/20/2024 6:05 AM HANDMADE TILE ARTIST [facility] RBC Count 2.54(L) 3.80 - 5.20 10e6/uL 06/20/2024 6:05 AM HANDMADE TILE ARTIST [facility] Hemoglobin 8.0(L) 11.7 - 15.7 g/dL 06/20/2024 6:05 AM HANDMADE TILE ARTIST [facility] Hematocrit 23.2(L) 35.0 - 47.0 % 06/20/2024 6:05 AM HANDMADE TILE ARTIST [facility] MCV 91 78 - 100 fL 06/20/2024 6:05 AM HANDMADE TILE ARTIST [facility] MCH 31.5 26.5 - 33.0 pg 06/20/2024 6:05 AM HANDMADE TILE ARTIST [facility] MCHC 34.5 31.5 - 36.5 g/dL 06/20/2024 6:05 AM HANDMADE TILE ARTIST [facility] RDW 18.4(H) 10.0 - 15.0 % 06/20/2024 6:05 AM HANDMADE TILE ARTIST [facility] Platelet Count 435 150 - 450 10e3/uL 06/20/2024 6:05 AM HANDMADE TILE ARTIST [facility] % Neutrophils 47 % 06/20/2024 6:05 AM HANDMADE TILE [facility] % Lymphocytes 43 % 06/20/2024 6:05 AM HANDMADE TILE ARTIST [facility] % Monocytes 6 % 06/20/2024 6:05 AM HANDMADE TILE ARTIST [facility] % Eosinophils 3 % 06/20/2024 6:05 AM HANDMADE TILE ARTIST [facility] % Basophils 1 % 06/20/2024 6:05 AM HANDMADE TILE ARTIST [facility] % Immature Granulocytes 1 % 06/20/2024 6:05 AM HANDMADE TILE ARTIST [facility] NRBCs per 100 WBC 1(H) <1 /100 025 6:05 AM HANDMADE TILE ARTIST [facility] Absolute Neutrophils 4.4 1.6 - 8.3 10e3/uL 06/20/2024 6:05 AM HANDMADE TILE ARTIST [facility] Absolute Lymphocytes 4.0 0.8 - 5.3 10e3/uL 06/20/2024 6:05 AM HANDMADE TILE ARTIST [facility] Absolute Monocytes 0.5 0.0 - 1.3 10e3/uL 06/20/2024 6:05 AM HANDMADE TILE ARTIST [facility] Absolute Eosinophils 0.3 0.0 - 0.7 10e3/uL 06/20/2024 6:05 AM HANDMADE TILE ARTIST [facility] Absolute Basophils 0.1 0.0 - 0.2 10e3/uL 06/20/2024 6:05 AM HANDMADE TILE ARTIST [facility] Absolute Immature Granulocytes 0.1 <=0.4 10e3/uL 06/20/2024 6:05 AM HANDMADE TILE ARTIST [facility] Absolute NRBCs 0.1 10e3/uL 06/20/2024 6:05 AM HANDMADE TILE ARTIST [facility] Blood (Portacath) IVAD (Port) / Unknown 06/20/2024 5:48 AM HANDMADE TILE ARTIST 06/20/2024 5:55 AM HANDMADE TILE ARTIST Rl Elias MD LAB - BLOOD ORDER SYD Final Result [facility] [place] [facility] [address] [facility], [address] * (ABNORMAL) Reticulocyte count (06/20/2024 5:48 AM HANDMADE TILE ARTIST) [facility] % Reticulocyte 9.6(H) 0.5 - 2.0 % 06/20/2024 6:37 AM HANDMADE TILE ARTIST [facility] Absolute Reticulocyte 0.236(H) 0.025 - 0.095 10e6/uL 06/20/2024 6:37 AM HANDMADE TILE ARTIST [facility] Blood (Portacath) IVAD (Port) / Unknown 06/20/2024 5:48 AM HANDMADE TILE ARTIST 06/20/2024 5:55 AM HANDMADE TILE ARTIST Rl Elias MD LAB - BLOOD ORDER SYD Final Result [facility] [place] [facility] [address] [facility], [address] [place] [address], [place] * (ABNORMAL) Comprehensive metabolic panel (06/20/2024 5:48 AM HANDMADE TILE ARTIST) Sodium 133(L) 135 - 145 mmol/L 06/20/2024 6:35 AM HANDMADE TILE ARTIST [facility] Potassium 4.6 3.4 - 5.3 mmol/L 06/20/2024 6:35 AM HANDMADE TILE ARTIST [facility] Carbon Dioxide (CO2) 21(L) 22 - 29 mmol/L 06/20/2024 6:35 AM HANDMADE TILE ARTIST [facility] Anion Gap 8 7 - 15 mmol/L 06/20/2024 6:35 AM HANDMADE TILE ARTIST [facility] Urea Nitrogen 14.6 6.0 - 20.0 mg/dL 06/20/2024 6:35 AM HANDMADE TILE ARTIST [facility] Creatinine 0.66 0.51 - 0.95 mg/dL 06/20/2024 6:35 AM HANDMADE TILE ARTIST [facility] GFR Estimate >90 >60 mL/min/1.7 3m2 06/20/2024 6:35 AM HANDMADE TILE ARTIST [facility] Comment:eGFR calculated usin 2020 CKD-EPI equation. Calcium 8.7(L) 8.8 - 10.4 mg/dL 06/20/2024 6:35 AM HANDMADE TILE ARTIST [facility] Chloride 104 98 - 107 mmol/L 06/20/2024 6:35 AM HANDMADE TILE ARTIST [facility] Glucose 100(H) 70 - 99 mg/dL 06/20/2024 6:35 AM HANDMADE TILE ARTIST [facility] Alkaline Phosphatase 98 40 - 150 U/L 06/20/2024 6:35 AM HANDMADE TILE ARTIST [facility] AST 67(H) 0 - 45 U/L 06/20/2024 6:35 AM HANDMADE TILE ARTIST [facility] ALT 40 0 - 50 U/L 06/20/2024 6:35 AM HANDMADE TILE ARTIST [facility] Protein Total 7.2 6.4 - 8.3 g/dL 06/20/2024 6:35 AM HANDMADE TILE ARTIST [facility] Albumin 3.9 3.5 - 5.2 g/dL 06/20/2024 6:35 AM HANDMADE TILE ARTIST [facility] Bilirubin Total 1.5(H) <=1.2 mg/dL 06/20/2024 6:35 AM HANDMADE TILE ARTIST [facility] Blood (Portacath) IVAD (Port) / Unknown 06/20/2024 5:48 AM HANDMADE TILE ARTIST 06/20/2024 5:55 AM HANDMADE TILE ARTIST Rl Elias MD LAB - BLOOD ORDER SYD Final Result [facility] [place] [facility] Lab [address] [facility], [address] [phone] * (ABNORMAL) Lactate Dehydrogenase (06/20/2024 5:48 AM HANDMADE TILE ARTIST) [facility] Lactate Dehydrogenase 571(H) 0 - 250 U/L 06/20/2024 6:35 AM HANDMADE TILE ARTIST [facility] Blood (Portacath) IVAD (Port) / Unknown 06/20/2024 5:48 AM HANDMADE TILE ARTIST 06/20/2024 5:55 AM HANDMADE TILE ARTIST Rl Elias MD LAB - BLOOD ORDER SYD Final Result [facility] [place] [facility] Lab [address] [facility], [address] [phone] * (ABNORMAL) RBC and Platelet Morphology (06/19/2024 9:30 AM HANDMADE TILE ARTIST) [facility] RBC Morphology Confirmed RBC Indices 06/19/2024 11:43 AM HANDMADE TILE ARTIST [facility] Platelet Assessment Automated Count Confirmed. Giant platelets are present.(A) Automated Count Confirmed. Platelet morphology is normal. 06/19/2024 11:43 AM HANDMADE TILE ARTIST [facility] Giant Platelets Slight(A) None Seen 11:43 AM HANDMADE TILE ARTIST [facility] Elliptocytes None Seen None Seen 06/19/2024 11:43 AM HANDMADE TILE ARTIST [facility] Polychromasia Slight(A) None Seen 06/19/2024 11:43 AM HANDMADE TILE ARTIST [facility] RBC Fragments Slight(A) None Seen 06/19/2024 11:43 AM HANDMADE TILE ARTIST [facility] Reactive Lymphocytes Present(A) None Seen 06/19/2024 11:43 AM HANDMADE TILE ARTIST [facility] Sickle Cells Moderate(A) None Seen 06/19/2024 11:43 AM HANDMADE TILE ARTIST [facility] Smudge Cells Present(A) None Seen 06/19/2024 11:43 AM HANDMADE TILE ARTIST [facility] Target Cells Moderate(A) None Seen 06/19/2024 11:43 AM HANDMADE TILE ARTIST [facility] Blood CENTRAL VENOUS CATHETER / Unknown VAD(CVC, PICC) / Unknown 06/19/2024 9:30 AM HANDMADE TILE ARTIST 06/19/2024 9:42 AM HANDMADE TILE ARTIST Rl Elias MD LAB - BLOOD ORDER SYD Final Result [facility] [place] [facility] Lab [address] [facility], [address] [place] [address] * (ABNORMAL) CBC with platelets and differential (06/19/2024 9:30 AM HANDMADE TILE ARTIST) WBC Count 9.9 4.0 - 11.0 10e3/uL 06/19/2024 11:43 AM HANDMADE TILE ARTIST [facility] RBC Count 2.55(L) 3.80 - 5.20 10e6/uL 06/19/2024 11:43 AM HANDMADE TILE ARTIST [facility] Hemoglobin 8.1(L) 11.7 - 15.7 g/dL 06/19/2024 11:43 AM HANDMADE TILE ARTIST [facility] Hematocrit 24.0(L) 35.0 - 47.0 % 06/19/2024 11:43 AM HANDMADE TILE ARTIST [facility] MCV 94 78 - 100 fL 06/19/2024 11:43 AM HANDMADE TILE ARTIST [facility] MCH 31.8 26.5 - 33.0 pg 06/19/2024 11:43 AM HANDMADE TILE ARTIST [facility] MCHC 33.8 31.5 - 36.5 g/dL 06/19/2024 11:43 AM HANDMADE TILE ARTIST [facility] RDW 18.4(H) 10.0 - 15.0 % 06/19/2024 11:43 AM HANDMADE TILE ARTIST [facility] Platelet Count 471(H) 150 - 450 10e3/uL 06/19/2024 11:43 AM HANDMADE TILE ARTIST [facility] % Neutrophils 62 % 06/19/2024 11:43 AM HANDMADE TILE ARTIST [facility] % Lymphocytes 28 % 06/19/2024 11:43 AM HANDMADE TILE ARTIST [facility] % Monocytes 6 % 06/19/2024 11:43 AM HANDMADE TILE ARTIST [facility] % Eosinophils 3 % 06/19/2024 11:43 AM HANDMADE TILE ARTIST [facility] % Basophils 1 % 06/19/2024 11:43 AM HANDMADE TILE ARTIST [facility] % Immature Granulocytes 1 % 06/19/2024 11:43 AM HANDMADE TILE ARTIST [facility] NRBCs per 100 WBC 4(H) <1 /100 025 11:43 AM HANDMADE TILE ARTIST [facility] Absolute Neutrophils 6.1 1.6 - 8.3 10e3/uL 06/19/2024 11:43 AM HANDMADE TILE ARTIST [facility] Absolute Lymphocytes 2.7 0.8 - 5.3 10e3/uL 06/19/2024 11:43 AM HANDMADE TILE ARTIST [facility] Absolute Monocytes 0.6 0.0 - 1.3 10e3/uL 06/19/2024 11:43 AM HANDMADE TILE ARTIST [facility] Absolute Eosinophils 0.3 0.0 - 0.7 10e3/uL 06/19/2024 11:43 AM HANDMADE TILE ARTIST [facility] Absolute Basophils 0.1 0.0 - 0.2 10e3/uL 06/19/2024 11:43 AM HANDMADE TILE ARTIST [facility] Absolute Immature Granulocytes 0.1 <=0.4 10e3/uL 06/19/2024 11:43 AM HANDMADE TILE ARTIST [facility] Absolute NRBCs 0.4 10e3/uL 06/19/2024 11:43 AM HANDMADE TILE ARTIST [facility] Blood CENTRAL VENOUS CATHETER / Unknown VAD(CVC, PICC) / Unknown 06/19/2024 9:30 AM HANDMADE TILE ARTIST 06/19/2024 9:42 AM HANDMADE TILE ARTIST Rl Elias MD LAB - BLOOD ORDER SYD Final Result [facility] [place] [facility] Lab [address] [facility], [address] [place] [address] * (ABNORMAL) Reticulocyte count (06/19/2024 9:30 AM HANDMADE TILE ARTIST) [facility] % Reticulocyte 9.2(H) 0.5 - 2.0 % 06/19/2024 9:48 AM HANDMADE TILE ARTIST [facility] Absolute Reticulocyte 0.234(H) 0.025 - 0.095 10e6/uL 06/19/2024 9:48 AM HANDMADE TILE ARTIST [facility] Blood CENTRAL VENOUS CATHETER / Unknown VAD(CVC, PICC) / Unknown 06/19/2024 9:30 AM HANDMADE TILE ARTIST 06/19/2024 9:42 AM HANDMADE TILE ARTIST Rl Elias MD LAB - BLOOD ORDER SYD Final Result [facility] [place] [facility] Lab [address] [facility], [address] [place] [address] * (ABNORMAL) Comprehensive metabolic panel (06/19/2024 9:30 AM HANDMADE TILE ARTIST) Sodium 135 135 - 145 mmol/L 06/19/2024 10:13 AM HANDMADE TILE ARTIST [facility] Potassium 4.4 3.4 - 5.3 mmol/L 06/19/2024 10:13 AM HANDMADE TILE ARTIST [facility] Carbon Dioxide (CO2) 21(L) 22 - 29 mmol/L 06/19/2024 10:13 AM HANDMADE TILE ARTIST [facility] Anion Gap 9 7 - 15 mmol/L 06/19/2024 10:13 AM HANDMADE TILE ARTIST [facility] Urea Nitrogen 12.3 6.0 - 20.0 mg/dL 06/19/2024 10:13 AM HANDMADE TILE ARTIST [facility] Creatinine 0.68 0.51 - 0.95 mg/dL 06/19/2024 10:13 AM HANDMADE TILE ARTIST [facility] GFR Estimate >90 >60 mL/min/1.7 3m2 06/19/2024 10:13 AM HANDMADE TILE ARTIST [facility] Comment:eGFR calculated us2020 CKD-EPI equation. Calcium 8.9 8.8 - 10.4 mg/dL 06/19/2024 10:13 AM HANDMADE TILE ARTIST [facility] Chloride 105 98 - 107 mmol/L 06/19/2024 10:13 AM HANDMADE TILE ARTIST [facility] Glucose 100(H) 70 - 99 mg/dL 06/19/2024 10:13 AM HANDMADE TILE ARTIST [facility] Alkaline Phosphatase 94 40 - 150 U/L 06/19/2024 10:13 AM HANDMADE TILE ARTIST [facility] AST 54(H) 0 - 45 U/L 06/19/2024 10:13 AM HANDMADE TILE ARTIST [facility] ALT 31 0 - 50 U/L 06/19/2024 10:13 AM HANDMADE TILE ARTIST [facility] Protein Total 7.1 6.4 - 8.3 g/dL 06/19/2024 10:13 AM HANDMADE TILE ARTIST [facility] Albumin 3.9 3.5 - 5.2 g/dL 06/19/2024 10:13 AM HANDMADE TILE ARTIST [facility] Bilirubin Total 1.5(H) <=1.2 mg/dL 06/19/2024 10:13 AM HANDMADE TILE ARTIST [facility] Blood CENTRAL VENOUS CATHETER / Unknown VAD(CVC, PICC) / Unknown 06/19/2024 9:30 AM HANDMADE TILE ARTIST 06/19/2024 9:41 AM HANDMADE TILE ARTIST Rl Elias MD LAB - BLOOD ORDER SYD Final Result [facility] [place] [facility] Lab [address] [facility], [address] * (ABNORMAL) Lactate Dehydrogenase (06/19/2024 9:30 AM HANDMADE TILE ARTIST) Lactate Dehydrogenase 507(H) 0 - 250 U/L 06/19/2024 10:13 AM HANDMADE TILE ARTIST [facility] Blood CENTRAL VENOUS CATHETER / Unknown VAD(CVC, PICC) / Unknown 06/19/2024 9:30 AM HANDMADE TILE ARTIST 06/19/2024 9:41 AM HANDMADE TILE ARTIST Rl Elias MD LAB - BLOOD ORDER SYD Final Result [facility] [place] [facility] Lab [address] [facility], [address] * (ABNORMAL) Platelet count (06/19/2024 12:17 AM HANDMADE TILE ARTIST) Platelet Count 467(H) 150 - 450 10e3/uL 06/19/2024 12:44 AM HANDMADE TILE ARTIST [facility] Blood BLOOD SPECIMEN / Unknown Venipuncture / Unknown 06/19/2024 12:17 AM HANDMADE TILE ARTIST 06/19/2024 12:26 AM HANDMADE TILE ARTIST Laquita Kelley MD LAB - BLOOD ORDERABLES Final Re sult [facility] [place] [facility] Lab [address] [facility], [address] * Creatinine (06/19/2024 12:17 AM HANDMADE TILE ARTIST) Creatinine 0.72 0.51 - 0.95 mg/dL 06/19/2024 12:51 AM HANDMADE TILE ARTIST [facility] GFR Estimate >90 >60 mL/min/1.7 3m2 06/19/2024 12:51 AM HANDMADE TILE ARTIST [facility] Comment:eGFR calculated usin 2020 CKD-EPI equation. Blood BLOOD SPECIMEN / Unknown Venipuncture / Unknown 06/19/2024 12:17 AM HANDMADE TILE ARTIST 06/19/2024 12:26 AM HANDMADE TILE ARTIST Laquita Kelley MD LAB - BLOOD ORDERABLES Final Re sult Performing Organization Address City/[facility]/ZIP Co de Phone Number [facility] [place] [facility] Lab [address] [facility], [address] * (ABNORMAL) Manual Differential (06/18/2024 8:24 AM HANDMADE TILE ARTIST) % Neutrophils 52 % 06/18/2024 9:35 AM HANDMADE TILE ARTIST [facility] % Lymphocytes 39 % 06/18/2024 9:35 AM HANDMADE TILE ARTIST [facility] % Monocytes 7 % 06/18/2024 9:35 AM HANDMADE TILE ARTIST [facility] % Eosinophils 3 % 06/18/2024 9:35 AM HANDMADE TILE ARTIST [facility] % Basophils 0 % 06/18/2024 9:35 AM HANDMADE TILE ARTIST [facility] NRBCs per 100 WBC 13(H) <=0 % 06/18/2024 9:35 AM HANDMADE TILE ARTIST [facility] Absolute Neutrophils 5.6 1.6 - 8.3 10e3/uL 06/18/2024 9:35 AM HANDMADE TILE ARTIST [facility] Absolute Lymphocytes 4.2 0.8 - 5.3 10e3/uL 06/18/2024 9:35 AM HANDMADE TILE ARTIST [facility] Absolute Monocytes 0.7 0.0 - 1.3 10e3/uL 06/18/2024 9:35 AM HANDMADE TILE ARTIST [facility] Absolute Eosinophils 0.3 0.0 - 0.7 10e3/uL 06/18/2024 9:35 AM HANDMADE TILE ARTIST [facility] Absolute Basophils 0.0 0.0 - 0.2 10e3/uL 06/18/2024 9:35 AM HANDMADE TILE ARTIST [facility] Absolute NRBCs 1.4(H) <=0.0 10e3/uL 025 9:35 AM HANDMADE TILE ARTIST [facility] RBC Morphology Confirmed RBC Indices 06/18/2024 9:35 AM HANDMADE TILE ARTIST [facility] Platelet Assessment Automated Count Confirmed. Platelet morphology is normal. Automated Count Confirmed. Platelet morphology is normal. 06/18/2024 9:35 AM HANDMADE TILE ARTIST [facility] RBC Fragments Slight(A) None Seen 06/18/2024 9:35 AM HANDMADE TILE ARTIST [facility] Polychromasia Slight(A) None Seen 06/18/2024 9:35 AM HANDMADE TILE ARTIST [facility] Sickle Cells Moderate(A) None Seen 06/18/2024 9:35 AM HANDMADE TILE ARTIST [facility] Blood BLOOD SPECIMEN / Unknown Venipuncture / Unknown 06/18/2024 8:24 AM HANDMADE TILE ARTIST 06/18/2024 8:32 AM HANDMADE TILE ARTIST us Rl Elias MD LAB - BLOOD ORDER SYD Final Result [facility] [place] [facility] Lab [address] [facility], [address] [place] [address], [facility] * (ABNORMAL) CBC with platelets and differential (06/18/2024 8:24 AM HANDMADE TILE ARTIST) WBC Count 10.8 4.0 - 11.0 10e3/uL 06/18/2024 9:24 AM HANDMADE TILE ARTIST [facility] RBC Count 2.51(L) 3.80 - 5.20 10e6/uL 06/18/2024 9:24 AM HANDMADE TILE ARTIST [facility] Hemoglobin 8.1(L) 11.7 - 15.7 g/dL 06/18/2024 9:24 AM HANDMADE TILE ARTIST [facility] Hematocrit 23.1(L) 35.0 - 47.0 % 06/18/2024 9:24 AM HANDMADE TILE ARTIST [facility] MCV 92 78 - 100 fL 06/18/2024 9:24 AM HANDMADE TILE ARTIST [facility] MCH 32.3 26.5 - 33.0 pg 06/18/2024 9:24 AM HANDMADE TILE ARTIST [facility] MCHC 35.1 31.5 - 36.5 g/dL 06/18/2024 9:24 AM HANDMADE TILE ARTIST [facility] RDW 18.7(H) 10.0 - 15.0 % 06/18/2024 9:24 AM HANDMADE TILE ARTIST [facility] Platelet Count 452(H) 150 - 450 10e3/uL 06/18/2024 9:24 AM HANDMADE TILE ARTIST [facility] Blood BLOOD SPECIMEN / Unknown Venipuncture / Unknown 06/18/2024 8:24 AM HANDMADE TILE ARTIST 06/18/2024 8:32 AM HANDMADE TILE ARTIST Rl Elias MD LAB - BLOOD ORDER SYD Final Result [facility] [place] [facility] Lab [address] [facility], [address] [id number] * (ABNORMAL) Reticulocyte count (06/18/2024 8:24 AM HANDMADE TILE ARTIST) [facility] % Reticulocyte 10.0(H) 0.5 - 2.0 % 06/18/2024 8:38 AM HANDMADE TILE ARTIST [facility] Absolute Reticulocyte 0.250(H) 0.025 - 0.095 10e6/uL 06/18/2024 8:38 AM HANDMADE TILE ARTIST [facility] Blood BLOOD SPECIMEN / Unknown Venipuncture / Unknown 06/18/2024 8:24 AM HANDMADE TILE ARTIST 06/18/2024 8:32 AM HANDMADE TILE ARTIST Rl Elias MD LAB - BLOOD ORDER SYD Final Result [facility] [place] [facility] Lab [address] [facility] [place], [place] [phone] * (ABNORMAL) Comprehensive metabolic panel (06/18/2024 8:24 AM HANDMADE TILE ARTIST) Sodium 133(L) 135 - 145 mmol/L 06/18/2024 9:02 AM HANDMADE TILE ARTIST [facility] Potassium 4.3 3.4 - 5.3 mmol/L 06/18/2024 9:02 AM HANDMADE TILE ARTIST [facility] Carbon Dioxide (CO2) 21(L) 22 - 29 mmol/L 06/18/2024 9:02 AM HANDMADE TILE ARTIST [facility] Anion Gap 7 7 - 15 mmol/L 06/18/2024 9:02 AM HANDMADE TILE ARTIST [facility] Urea Nitrogen 9.2 6.0 - 20.0 mg/dL 06/18/2024 9:02 AM HANDMADE TILE ARTIST [facility] Creatinine 0.65 0.51 - 0.95 mg/dL 06/18/2024 9:02 AM HANDMADE TILE ARTIST [facility] GFR Estimate >90 >60 mL/min/1.7 3m2 06/18/2024 9:02 AM HANDMADE TILE ARTIST [facility] Comment:eGFR calculated us2020 CKD-EPI equation. Calcium 8.7(L) 8.8 - 10.4 mg/dL 06/18/2024 9:02 AM HANDMADE TILE ARTIST [facility] Chloride 105 98 - 107 mmol/L 06/18/2024 9:02 AM HANDMADE TILE ARTIST [facility] Glucose 92 70 - 99 mg/dL 06/18/2024 9:02 AM HANDMADE TILE ARTIST [facility] Alkaline Phosphatase 86 40 - 150 U/L 06/18/2024 9:02 AM HANDMADE TILE ARTIST [facility] AST 45 0 - 45 U/L 06/18/2024 9:02 AM HANDMADE TILE ARTIST [facility] ALT 27 0 - 50 U/L 06/18/2024 9:02 AM HANDMADE TILE ARTIST [facility] Protein Total 7.0 6.4 - 8.3 g/dL 06/18/2024 9:02 AM HANDMADE TILE ARTIST [facility] Albumin 3.9 3.5 - 5.2 g/dL 06/18/2024 9:02 AM HANDMADE TILE ARTIST [facility] Bilirubin Total 1.4(H) <=1.2 mg/dL 06/18/2024 9:02 AM HANDMADE TILE ARTIST [facility] Blood BLOOD SPECIMEN / Unknown Venipuncture / Unknown 06/18/2024 8:24 AM HANDMADE TILE ARTIST 06/18/2024 8:32 AM HANDMADE TILE ARTIST us Rl Elias MD LAB - BLOOD ORDER SYD Final Result LABORATORY [facility] Core Lab [address] [facility], [address] [phone] * (ABNORMAL) Lactate Dehydrogenase (06/18/2024 8:24 AM HANDMADE TILE ARTIST) Lactate Dehydrogenase 491(H) 0 - 250 U/L 06/18/2024 9:02 AM HANDMADE TILE ARTIST [facility] Blood BLOOD SPECIMEN / Unknown Venipuncture / Unknown 06/18/2024 8:24 AM HANDMADE TILE ARTIST 06/18/2024 8:32 AM HANDMADE TILE ARTIST Rl Elias MD LAB - BLOOD ORDER SYD Final Result Performing Organization Address City/[facility] Co de Phone Number LABORATORY [facility] Core Lab [address] [facility], [address] [phone] * Transfuse red blood cells (unit), Sickle Cell (Hgb S) Negative (06/17/2024 2:33 PM HANDMADE TILE ARTIST) us Drake Nina MD BLOOD TRANSFUSION ORDERABLES Final Result * Transfuse red blood cells (unit), 1 Units, Sickle Cell (Hgb S) Negative (06/17/2024 2:33 PM HANDMADE TILE ARTIST) us Drake Nina MD BLOOD TRANSFUSION ORDERABLES Final Result * (ABNORMAL) UA with Microscopic reflex to Culture (06/17/2024 1:11 PM HANDMADE TILE ARTIST) Color Urine Light Yellow Colorless, Straw, Light Yellow, Yellow 06/17/2024 1:48 PM HANDMADE TILE ARTIST [facility] Appearance Urine Clear Clear 06/17/19 25 1:48 PM HANDMADE TILE ARTIST [facility] Glucose Urine Negative Negative mg/dL 06/17/2024 1:48 PM HANDMADE TILE ARTIST [facility] Bilirubin Urine Negative Negative 5 1:48 PM HANDMADE TILE ARTIST [facility] Ketones Urine Negative Negative mg/dL 06/17/2024 1:48 PM HANDMADE TILE ARTIST [facility] Specific Gerlach Urine 1.009 1.003 - 1.035 06/17/2024 1:48 PM HANDMADE TILE ARTIST [facility] Blood Urine Trace(A) Negative 06/17/2024 1:48 PM HANDMADE TILE ARTIST [facility] pH Urine 6.5 5.0 - 7.0 06/17/2024 1:48 PM HANDMADE TILE ARTIST [facility] Protein Albumin Urine Negative Negative mg/dL 06/17/2024 1:48 PM HANDMADE TILE ARTIST [facility] Urobilinogen Urine Normal Normal, 2.0 mg/dL 06/17/2024 1:48 PM HANDMADE TILE ARTIST [facility] Nitrite Urine Negative Negative 06/17/2024 1:48 PM HANDMADE TILE ARTIST [facility] Leukocyte Esterase Urine Small(A) Negative 06/17/2024 1:48 PM HANDMADE TILE ARTIST [facility] RBC Urine <1 <=2 /HPF 06/17/2024 1:48 PM HANDMADE TILE ARTIST [facility] WBC Urine <1 <=5 /HPF 06/17/2024 1:48 PM HANDMADE TILE ARTIST [facility] Squamous Epithelials Urine 3(H) <=1 /HPF 06/17/2024 1:48 PM HANDMADE TILE ARTIST [facility] Urine URINE SPECIMEN OBTAINED BY CLEAN CATCH PROCEDURE / Unknown Non-blood Collection / Unknown 06/17/2024 1:11 PM HANDMADE TILE ARTIST 06/17/2024 1:38 PM HANDMADE TILE ARTIST Narrative [facility] - 06/17/2024 1:48 PM HANDMADE TILE ARTIST Urine Culture not indicated Rl Elias MD LAB - URINE ORDER SYD Final Result [facility] [place] [facility] Lab [address] [facility], [address] [place] [phone] * Prepare red blood cells (unit) (06/17/2024 9:12 AM HANDMADE TILE ARTIST) Blood Component Type Red Blood Cells [facility] Product Code [id number] [facility] Unit Status Transfused [facility] Unit Number [id number] [facility] B LOOD BANK CROSSMATCH COMPATIBLE [facility] CODING SYSTEM [id number] [facility] B[facility] OD BANK ISSUE DATE AND TIME [id number] [facility] UNIT ABO/RH A+ [facility] UNIT TYPE ISBT 6200 [facility] BL OOD BANK 06/17/2024 9:12 AM HANDMADE TILE ARTIST us Drake Nina MD BLOOD BANK PRODUCT ORDERABLES Final Result BLOOD BANK [address] [place] [id number] * (ABNORMAL) Transferrin (06/17/2024 6:16 AM HANDMADE TILE ARTIST) Transferrin 100.0(L) 200.0 - 360.0 mg/dL 06/17/2024 9:36 AM HANDMADE TILE ARTIST [facility] Blood VENOUS LINE / Unknown IVAD (Port) / Unknown 06/17/2024 6:16 AM HANDMADE TILE ARTIST 06/17/2024 6:27 AM HANDMADE TILE ARTIST us Drake Nina MD LAB - BLOOD ORDERABLES Final Result [facility] [place] [facility] [address] [facility], [address] [place], [place] [id number] * Iron and iron binding capacity (06/17/2024 6:16 AM HANDMADE TILE ARTIST) Iron 123 37 - 145 ug/dL 06/17/2024 10:02 AM HANDMADE TILE ARTIST [facility] Iron Binding Capacity 06/17/2024 10:02 AM HANDMADE TILE ARTIST [facility] Comment:Unable to calculate: UIBC or Iron value is outside detectable level. Iron Sat Index 06/17/2024 10:02 AM HANDMADE TILE ARTIST [facility] Comment:Unable to calculate: UIBC or Iron value is outside detectable level. Blood VENOUS LINE / Unknown IVAD (Port) / Unknown 06/17/2024 6:16 AM HANDMADE TILE ARTIST 06/17/2024 6:27 AM HANDMADE TILE ARTIST us Drake Nina MD LAB - BLOOD ORDERABLES Final Result [facility] [place] [facility] [address] [facility], [address] [place] [id number] * (ABNORMAL) CBC with platelets (06/17/2024 6:16 AM HANDMADE TILE ARTIST) Pathologist [facility] WBC Count 14.6(H) 4.0 - 11.0 10e3/uL 06/17/2024 6:38 AM HANDMADE TILE ARTIST [facility] RBC Count 1.97(L) 3.80 - 5.20 10e6/uL 06/17/2024 6:38 AM HANDMADE TILE ARTIST [facility] Hemoglobin 6.3(LL) 11.7 - 15.7 g/dL 06/17/2024 6:38 AM HANDMADE TILE ARTIST [facility] Hematocrit 17.9(L) 35.0 - 47.0 % 06/17/2024 6:38 AM HANDMADE TILE ARTIST [facility] MCV 91 78 - 100 fL 06/17/2024 6:38 AM HANDMADE TILE ARTIST [facility] MCH 32.0 26.5 - 33.0 pg 06/17/2024 6:38 AM HANDMADE TILE ARTIST [facility] MCHC 35.2 31.5 - 36.5 g/dL 06/17/2024 6:38 AM HANDMADE TILE ARTIST [facility] RDW 20.1(H) 10.0 - 15.0 % 06/17/2024 6:38 AM HANDMADE TILE ARTIST [facility] Platelet Count 468(H) 150 - 450 10e3/uL 06/17/2024 6:38 AM HANDMADE TILE ARTIST [facility] Blood VENOUS LINE / Unknown IVAD (Port) / Unknown 06/17/2024 6:16 AM HANDMADE TILE ARTIST 06/17/2024 6:27 AM HANDMADE TILE ARTIST us Laquita Kelley MD LAB - BLOOD ORDERABLES Final Re sult [facility] [place] [facility] [address] [facility], [address] [place] [id number] * (ABNORMAL) Basic metabolic panel (06/17/2024 6:16 AM HANDMADE TILE ARTIST) Pathologist [facility] Sodium 134(L) 135 - 145 mmol/L 06/17/2024 6:55 AM HANDMADE TILE ARTIST [facility] Potassium 4.6 3.4 - 5.3 mmol/L 06/17/2024 6:55 AM HANDMADE TILE ARTIST [facility] Chloride 105 98 - 107 mmol/L 06/17/2024 6:55 AM HANDMADE TILE ARTIST [facility] Carbon Dioxide (CO2) 20(L) 22 - 29 mmol/L 06/17/2024 6:55 AM HANDMADE TILE ARTIST [facility] Anion Gap 9 7 - 15 mmol/L 06/17/2024 6:55 AM HANDMADE TILE ARTIST [facility] Urea Nitrogen 16.1 6.0 - 20.0 mg/dL 06/17/2024 6:55 AM HANDMADE TILE ARTIST [facility] Creatinine 0.90 0.51 - 0.95 mg/dL 06/17/2024 6:55 AM HANDMADE TILE ARTIST [facility] GFR Estimate 88 >60 mL/min/1.7 3m2 06/17/2024 6:55 AM HANDMADE TILE ARTIST [facility] Comment:eGFR calculated usin 2020 CKD-EPI equation. Calcium 8.4(L) 8.8 - 10.4 mg/dL 06/17/2024 6:55 AM HANDMADE TILE ARTIST [facility] Glucose 95 70 - 99 mg/dL 06/17/2024 6:55 AM HANDMADE TILE ARTIST [facility] Blood VENOUS LINE / Unknown IVAD (Port) / Unknown 06/17/2024 6:16 AM HANDMADE TILE ARTIST 06/17/2024 6:27 AM HANDMADE TILE ARTIST us Laquita Kelley MD LAB - BLOOD ORDERABLES Final Re sult [facility] Core Lab [address] [facility], [address] [place] [address] * Troponin T, High Sensitivity (06/16/2024 9:33 PM HANDMADE TILE ARTIST) Troponin T, High Sensitivity 8 <=14 ng/L 06/16/2024 10:13 PM HANDMADE TILE ARTIST [facility] Comment: Either a High Sensitivity [...] IVAD (Port) / Unknown 06/16/2024 9:33 PM HANDMADE TILE ARTIST 06/16/2024 9:44 PM HANDMADE TILE ARTIST us Varghesegiulia Schofield MD LAB - BLOOD ORDERABLE S Final Result LABORATORY [facility] Core Lab [address] [facility], [address] [address] * Chest XR, PA & LAT (06/16/2024 6:09 PM HANDMADE TILE ARTIST) Anatomical Region Laterality Modality Chest Digital Radiogra phy 06/16/2024 6:09 PM HANDMADE TILE ARTIST Impressions 06/16/2024 6:13 PM HANDMADE TILE ARTIST IMPRESSION: Left chest port catheter in stable position. Stable position of right central venous catheter. No airspace opacity, pleural effusion or pneumothorax. Narrative 06/16/2024 6:13 PM HANDMADE TILE ARTIST EXAM: XR CHEST 2 VIEWS LOCATION: [facility] DATE: 06/16/2024 INDICATION: chest pain COMPARISON: 06/12/2024 Procedure Note Richar Haines MD - 06/16/2024 EXAM: XR CHEST 2 VIEWS LOCATION: [facility] DATE: 06/16/2024 INDICATION: chest pain COMPARISON: 06/12/2024 IMPRESSION: Left chest port catheter in stable position. Stable positionof right central venous catheter. No airspace opacity, pleural effusion orpneumothorax. us Abimael Schofield MD IMG DIAGNOSTIC IMAGIN G ORDERABLES Final Result * RBC and Platelet Morphology (06/16/2024 5:37 PM HANDMADE TILE ARTIST) Pathologist [facility] RBC Morphology Confirmed RBC Indices 06/16/2024 7:40 PM HANDMADE TILE ARTIST [facility] Platelet Assessment Automated Count Confirmed. Platelet morphology is normal. Automated Count Confirmed. Platelet morphology is normal. 06/16/2024 7:40 PM HANDMADE TILE ARTIST [facility] Blood BLOOD SPECIMEN / Unknown Venipuncture / Unknown 06/16/2024 5:37 PM HANDMADE TILE ARTIST 06/16/2024 5:46 PM HANDMADE TILE ARTIST [facility] LAB - BLOOD ORDERABLE S Final Result [facility] Core Lab [address] [facility], [address] [place] [address], [facility] * Adult Type and Screen (06/16/2024 5:37 PM HANDMADE TILE ARTIST) [facility] ABO/RH(D) A POS 06/16/2024 5:08 PM HANDMADE TILE ARTIST BLOOD BANK Antibody Screen Negative Negative 06/16/2024 5:08 PM HANDMADE TILE ARTIST BLOOD BANK Comment:Current antibody scr een is negative. Patient has a history of antibody(ies). A delay in compatible red blood cells may occur. SPECIMEN EXPIRATION DATE [id number] 06/16/2024 5:08 PM HANDMADE TILE ARTIST BLOOD BANK Blood BLOOD SPECIMEN / Unknown Venipuncture / Unknown 06/16/2024 5:37 PM HANDMADE TILE ARTIST 06/16/2024 5:46 PM HANDMADE TILE ARTIST Abimael Schofield MD LAB - BLOOD BANK TEST ORDER Final Result [facility] [address] [place] [address] * (ABNORMAL) CBC with platelets and differential (06/16/2024 5:37 PM HANDMADE TILE ARTIST) [facility] WBC Count 21.0(H) 4.0 - 11.0 10e3/uL 06/16/2024 7:41 PM HANDMADE TILE ARTIST [facility] RBC Count 2.34(L) 3.80 - 5.20 10e6/uL 06/16/2024 7:41 PM HANDMADE TILE ARTIST [facility] Hemoglobin 7.4(L) 11.7 - 15.7 g/dL 06/16/2024 7:41 PM HANDMADE TILE ARTIST [facility] Hematocrit 21.7(L) 35.0 - 47.0 % 06/16/2024 7:41 PM HANDMADE TILE ARTIST [facility] MCV 93 78 - 100 fL 06/16/2024 7:41 PM HANDMADE TILE ARTIST [facility] MCH 31.6 26.5 - 33.0 pg 06/16/2024 7:41 PM HANDMADE TILE ARTIST [facility] MCHC 34.1 31.5 - 36.5 g/dL 06/16/2024 7:41 PM HANDMADE TILE ARTIST [facility] RDW 19.3(H) 10.0 - 15.0 % 06/16/2024 7:41 PM HANDMADE TILE ARTIST [facility] Platelet Count 551(H) 150 - 450 10e3/uL 06/16/2024 7:41 PM HANDMADE TILE ARTIST [facility] % Neutrophils 69 % 06/16/2024 7:41 PM HANDMADE TILE ARTIST [facility] % Lymphocytes 20 % 06/16/2024 7:41 PM HANDMADE TILE ARTIST [facility] % Monocytes 9 % 06/16/2024 7:41 PM HANDMADE TILE ARTIST [facility] % Eosinophils 0 % 06/16/2024 7:41 PM HANDMADE TILE ARTIST [facility] % Basophils 1 % 06/16/2024 7:41 PM HANDMADE TILE ARTIST [facility] % Immature Granulocytes 1 % 06/16/2024 7:41 PM HANDMADE TILE ARTIST [facility] NRBCs per 100 WBC 1(H) <1 /100 025 7:41 PM HANDMADE TILE ARTIST [facility] Absolute Neutrophils 14.5(H) 1.6 - 8.3 10e3/uL 06/16/2024 7:41 PM HANDMADE TILE ARTIST [facility] Absolute Lymphocytes 4.2 0.8 - 5.3 10e3/uL 06/16/2024 7:41 PM HANDMADE TILE ARTIST [facility] Absolute Monocytes 2.0(H) 0.0 - 1.3 10e3/uL 06/16/2024 7:41 PM HANDMADE TILE ARTIST [facility] Absolute Eosinophils 0.0 0.0 - 0.7 10e3/uL 06/16/2024 7:41 PM HANDMADE TILE ARTIST [facility] Absolute Basophils 0.2 0.0 - 0.2 10e3/uL 06/16/2024 7:41 PM HANDMADE TILE ARTIST [facility] Absolute Immature Granulocytes 0.1 <=0.4 10e3/uL 06/16/2024 7:41 PM HANDMADE TILE ARTIST [facility] Absolute NRBCs 0.3 10e3/uL 06/16/2024 7:41 PM HANDMADE TILE ARTIST [facility] Blood BLOOD SPECIMEN / Unknown Venipuncture / Unknown 06/16/2024 5:37 PM HANDMADE TILE ARTIST 06/16/2024 5:46 PM HANDMADE TILE ARTIST us Varghesegiulia Schofield MD LAB - BLOOD ORDERABLE S Final Result [facility] Core Lab [address] [facility], [address] * (ABNORMAL) Prolactin (06/16/2024 5:37 PM HANDMADE TILE ARTIST) Prolactin 55(H) 5 - 23 ng/mL 06/16/2024 6:24 PM HANDMADE TILE ARTIST [facility] Blood BLOOD SPECIMEN / Unknown Venipuncture / Unknown 06/16/2024 5:37 PM HANDMADE TILE ARTIST 06/16/2024 5:46 PM HANDMADE TILE ARTIST us Varghesegiulia Schofield MD LAB - BLOOD ORDERABLE S Final Result Performing Organization Address City/[facility]/ZIP Co de Phone Number [facility] Core Lab [address] [facility], [address] * Blood Culture Peripheral Blood (06/16/2024 5:37 PM HANDMADE TILE ARTIST) Culture No Growth 06/21/2024 6:47 PM HANDMADE TILE ARTIST [facility] Blood BLOOD SPECIMEN / Unknown Venipuncture / Unknown 06/16/2024 5:37 PM HANDMADE TILE ARTIST 06/16/2024 5:47 PM HANDMADE TILE ARTIST us Abimael Schofield MD LAB - MICRO GENERAL O RDERABLES Final Result [facility] Inf. Diseases Diag. Lab [address] [facility], [address] [place] [address] * Troponin T, High Sensitivity (06/16/2024 5:37 PM HANDMADE TILE ARTIST) [facility] Troponin T, High Sensitivity 6 <=14 ng/L 06/16/2024 6:24 PM HANDMADE TILE ARTIST [facility] Comment: Either a High Sensitivity [...] Unknown Venipuncture / Unknown 06/16/2024 5:37 PM HANDMADE TILE ARTIST 06/16/2024 5:46 PM HANDMADE TILE ARTIST us Varghesegiulia Schofield MD LAB - BLOOD ORDERABLE S Final Result [facility] Core Lab [address] [facility], [address] [place] [address] * (ABNORMAL) Comprehensive metabolic panel (06/16/2024 5:37 PM HANDMADE TILE ARTIST) [facility] Sodium 135 135 - 145 mmol/L 06/16/2024 6:24 PM HANDMADE TILE ARTIST [facility] Potassium 4.2 3.4 - 5.3 mmol/L 06/16/2024 6:24 PM HANDMADE TILE ARTIST [facility] Carbon Dioxide (CO2) 18(L) 22 - 29 mmol/L 06/16/2024 6:24 PM HANDMADE TILE ARTIST [facility] Anion Gap 14 7 - 15 mmol/L 06/16/2024 6:24 PM HANDMADE TILE ARTIST [facility] Urea Nitrogen 17.3 6.0 - 20.0 mg/dL 06/16/2024 6:24 PM HANDMADE TILE ARTIST [facility] Creatinine 0.92 0.51 - 0.95 mg/dL 06/16/2024 6:24 PM HANDMADE TILE ARTIST [facility] GFR Estimate 85 >60 mL/min/1.7 3m2 06/16/2024 6:24 PM HANDMADE TILE ARTIST [facility] Comment:eGFR calculated us2020 CKD-EPI equation. Calcium 9.5 8.8 - 10.4 mg/dL 06/16/2024 6:24 PM HANDMADE TILE ARTIST [facility] Chloride 103 98 - 107 mmol/L 06/16/2024 6:24 PM HANDMADE TILE ARTIST [facility] Glucose 122(H) 70 - 99 mg/dL 06/16/2024 6:24 PM HANDMADE TILE ARTIST [facility] Alkaline Phosphatase 105 40 - 150 U/L 06/16/2024 6:24 PM HANDMADE TILE ARTIST [facility] AST 49(H) 0 - 45 U/L 06/16/2024 6:24 PM HANDMADE TILE ARTIST [facility] ALT 32 0 - 50 U/L 06/16/2024 6:24 PM HANDMADE TILE ARTIST [facility] Protein Total 8.6(H) 6.4 - 8.3 g/dL 06/16/2024 6:24 PM HANDMADE TILE ARTIST [facility] Albumin 4.6 3.5 - 5.2 g/dL 06/16/2024 6:24 PM HANDMADE TILE ARTIST [facility] Bilirubin Total 2.0(H) <=1.2 mg/dL 06/16/2024 6:24 PM HANDMADE TILE ARTIST [facility] Blood BLOOD SPECIMEN / Unknown Venipuncture / Unknown 06/16/2024 5:37 PM HANDMADE TILE ARTIST 06/16/2024 5:46 PM HANDMADE TILE ARTIST us Varghesegiulia Schofield MD LAB - BLOOD ORDERABLE S Final Result [facility] Core Lab [address] [facility], [address] [place] [address] * EKG 12 lead (06/16/2024 4:55 PM HANDMADE TILE ARTIST) Systolic Blood Pressure mmHg RADIOLOGY RESULTS Diastolic Blood Pressure mmHg RADIOLOGY RESULTS Ventricular Rate 122 BPM RAD IOLOGY RESULTS Atrial Rate 122 BPM RADIOLOG Y RESULTS DE Interval 128 ms RADIOLOG Y RESULTS QRS Duration 74 ms RADIOLO GY RESULTS QT 314 ms RADIOLOGY RESULTS QTc 447 ms RADIOLOGY RESULTS P [place] 63 degrees RADIOLOGY RESULTS R AXIS 83 degrees RADIOLOGY RESULTS T [place] 29 degrees RADIOLOGY RESULTS Interpretation ECG Sinus tachycardia Otherwise normal ECG Unconfirmed report - interpretation of this ECG is computer generated - see medical record for final interpretation Confirmed by - EMERGENCY ROOM, PHYSICIAN ([id number]), rewrite editor KARLA WILLIAMSON ([id number]) on 06/17/2024 6:56:59 AM RADIOLOGY RESULTS 06/16/2024 4:55 PM HANDMADE TILE ARTIST 06/17/2024 6:56 AM HANDMADE TILE ARTIST us Varghesegiulia Schofield MD ECG ORDERABLES Edite [...] days, Indications: pneumoniaIndications:pneumonia $Given 06/18/2024 8:40 PM HANDMADE TILE ARTIST 200 mg $Given 06/18/2024 12:05 PM HANDMADE TILE ARTIST 200 mg $Given 06/17/2024 9:25 PM HANDMADE TILE ARTIST 200 mg diclofenac (VOLTAREN) 1 % topical gel 2 g 2 g, Topical, 4 TIMES DAILY, First dose on 06/17/24 at 1400, Apply to areas of pain. Use supplied dosing card to measure dose. diphenhydrAMINE (BENADRYL) capsule 25 mg 25 mg, Oral, EVERY 6 HOURS PRN, itching, Starting on Wed06/16/24 at 6 $Given 06/19/2024 12:46 PM HANDMADE TILE ARTIST 25 mg diphenhydrAMINE (BENADRYL) injection 25 mg 25 mg, Intravenous, EVERY 6 HOURS PRN, itching, Starting on Wed06/16/24 at 6 $Given 06/20/2024 8:36 AM HANDMADE TILE ARTIST 25 mg $Given 06/20/2024 2:08 AM HANDMADE TILE ARTIST 25 mg $Given 06/19/2024 8:21 PM HANDMADE TILE ARTIST 25 mg enoxaparin ANTICOAGULANT (LOVENOX) injection 40 mg 40 mg, Subcutaneous, EVERY 24 HOURS, First dose on Wed06/16/24 at 2100, Contact provider if platelet count drops by 50% or more after enoxaparin initiation OR if platelet count falls below 50 x 10e3/uL $Given 06/19/2024 8:29 PM HANDMADE TILE ARTIST 40 mg $Given 06/18/2024 8:01 PM HANDMADE TILE ARTIST 40 mg $Given 06/17/2024 9:32 PM HANDMADE TILE ARTIST 40 mg FLUoxetine (PROzac) capsule 10 mg 10 mg, Oral, DAILY, First dose on Wed06/17/24 at 0800 $Given 06/20/2024 7:54 AM HANDMADE TILE ARTIST 10 mg $Given 06/19/2024 8:54 AM HANDMADE TILE ARTIST 10 mg $Given 06/18/2024 9:54 AM HANDMADE TILE ARTIST 10 mg folic acid (FOLVITE) tablet 1 mg 1 mg, Oral, DAILY, First dose on Wed06/17/24 at 0800 $Given 06/20/2024 7:51 AM HANDMADE TILE ARTIST 1 mg $Given 06/19/2024 8:54 AM HANDMADE TILE ARTIST 1 mg $Given 06/18/2024 8:09 AM HANDMADE TILE ARTIST 1 mg heparin lock flush 10 unit/mL [...] each port lumen $Given 06/20/2024 10:55 AM HANDMADE TILE ARTIST 5 mLs hydromorphone (DILAUDID) injection 2 mg 2 mg, Intravenous, EVERY 1 HOUR PRN, moderate pain, Starting on Wed06/16/24 at 1708, For 3 doses $Given 06/16/2024 8:20 PM HANDMADE TILE ARTIST 2 mg $Given 06/16/2024 5:42 PM HANDMADE TILE ARTIST 2 mg hydromorphone (DILAUDID) injection 2 mg 2 mg, Intravenous, EVERY 3 HOURS, First dose on Wed06/16/24 at 2100, May use concomitant with non-opioid analgesics. $Given 06/16/2024 9:59 PM HANDMADE TILE ARTIST 2 mg hydromorphone (DILAUDID) injection 2 mg 2 mg, Intravenous, EVERY 2 HOURS, First dose (after last modification) on 06/17/24 at 0000, May use concomitant with non-opioid analgesics. $Given 06/20/2024 9:53 AM HANDMADE TILE ARTIST 2 mg $Given 06/20/2024 7:49 AM HANDMADE TILE ARTIST 2 mg $Given 06/20/2024 5:51 AM HANDMADE TILE ARTIST 2 mg hydroxyurea (HYDREA) capsule 1,000 mg 1,000 mg, Oral, 2 TIMES DAILY, First dose on Wed06/16/24 at 2100, Indications: Sickle cell anemia, Do not crush May require hepatic and/or renal dose or frequency adjustments. See reference link for guidelines.Indications:Sickle cell anemia $Given 06/20/2024 7:51 AM HANDMADE TILE ARTIST 1,000 mg $Given 06/19/2024 8:13 PM HANDMADE TILE ARTIST 1,000 mg $Given 06/19/2024 8:55 AM HANDMADE TILE ARTIST 1,000 mg lactated ringers infusion at 75 mL/hr, Intravenous, CONTINUOUS, Starting on Wed06/18/24 at 0845, Until Wed06/20/24 at 0815 Rate/Dose Verify 06/20/2024 8:00 AM HANDMADE TILE ARTIST 75 mL/hr $New Bag 06/19/2024 10:38 PM HANDMADE TILE ARTIST 75 mL/hr Rate/Dose Verify 06/19/2024 8:29 PM HANDMADE TILE ARTIST 75 mL/h r Lidocaine (LIDOCARE) 4 % [...] 06/16/24 at 1958 $Given 06/20/2024 2:08 AM HANDMADE TILE ARTIST 4 mg $Given 06/19/2024 8:15 PM HANDMADE TILE ARTIST 4 mg $Given 06/19/2024 12:46 PM HANDMADE TILE ARTIST 4 mg polyethylene glycol (MIRALAX) Packet 17 [...] each port lumen. $Given 06/20/2024 10:54 AM HANDMADE TILE ARTIST 10 mLs sodium chloride (PF) 0.9% PF flush 3 mL 3 mL, Intracatheter, EVERY 8 HOURS, First dose on Wed06/16/24 at 1710, to lock peripheral IV dormant line $Given 06/20/2024 12:24 AM HANDMADE TILE ARTIST 3 mLs $Given 06/18/2024 6:22 PM HANDMADE TILE ARTIST 3 mLs $Given 06/17/2024 7:34 AM HANDMADE TILE ARTIST 3 mLs sodium chloride (PF) 0.9% PF flush 3 mL 3 mL, Intracatheter, EVERY 1 MIN PRN, line flush, other, to ensure patency or to lock dormant line, Starting on Wed06/16/24 at 1706 sodium chloride (PF) 0.9% PF flush 3 mL 3 mL, Intracatheter, EVERY 8 HOURS, First dose on Wed06/16/24 at 2100, to lock peripheral IV dormant line $Given 06/20/2024 4:41 AM HANDMADE TILE ARTIST 3 mLs $Given 06/19/2024 12:56 PM HANDMADE TILE ARTIST 3 mLs $Given 06/18/2024 12:07 PM HANDMADE TILE ARTIST 3 mLs sodium chloride (PF) 0.9% PF flush 3 mL 3 mL, Intracatheter, EVERY 1 MIN PRN, line flush, other, to ensure patency or to lock dormant line, Starting on Wed06/16/24 at 2058 $Given 06/20/2024 5:5 2 AM HANDMADE TILE ARTIST 3 mLs $Given 06/20/2024 2:59 AM HANDMADE TILE ARTIST 3 mLs $Given 06/20/2024 2:07 AM HANDMADE TILE ARTIST 3 mLs sodium chloride 0.9 % infusion at 75 mL/hr, Intravenous, CONTINUOUS, Starting on Wed06/16/24 at 1710, Until 06/18/24 at 0843 Rate/Dose Verify 06/18/2024 8:07 AM HANDMADE TILE ARTIST 75 mL/hr $New Bag 06/17/2024 9:42 PM HANDMADE TILE ARTIST 75 mL/hr $New Bag 06/17/2024 4:05 PM HANDMADE TILE ARTIST 75 mL/hr sodium chloride 0.9% BOLUS 500 mL Intravenous, 500 mL, ONCE, at 500 mL/hr, Administer over 1 Hours, On Wed06/16/24 at 1710, For 1 dose $New Bag 06/16/2024 5:51 PM HANDMADE TILE ARTIST 500 mLs 500 mL/hr documented in this encounter Active and Recently Administered Medications Times are shown in HANDMADE TILE ARTIST. Scheduled Medication Order 06/18/2024 06/19/2024 06/20/2024 cefpodoxime [...] Zaynab Veliz RN)[id number] ($Given - Provider: Amelia aGnnon RN)[id number] ($Given - Provider: Amelia Gannon RN)0809 [...] - Provider: Rene Morocho RN - Comment: sports book writer used scheudled dose instead of PRN [...] stools. documented in this encounter Care Teams Flue Lining Dipper Relationship Specialty Start Date End Date No Ref-Primary, Physician PCP - General 03/15/24 06/17/24 Veronica Joseph MD [address] [place] [address] PCP - General Family Medicine 06/18/24 Mor Ramsey Medical Student 04/03/24 Case Samuel MD [address] [place] [address] [address] [place] [address] Assigned Pediatric Specialist Provider 05/18/24 Juhi Benson, RN Specialty Carburizing Furnace Operator Hematology & Oncology 05/29/24 documented as of this encounter
--- OUTSIDE RECORDS SUMMARY | 2024-06-25 16:17 | XMS_ITS | Encounter Summary ---
Author Organization [facility] Address [address] [place] [address]. 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 Author Pain Management General On track( 025 12:40 PM ELECTRONICS DESIGN ENGINEER) Yes Juhi Benson RN Note: Goal [...] on filedocumented in this encounter Care Teams Assembled Wood Products Repairer Relationship Specialty Start Date End Date Veronica Joseph MD [address] [place] [address] PCP - General Family Medicine 06/18/24 Mor Ramsey Medical Student 04/03/24 Case Samuel MD [address] [place] [address] [address] [place] [address] Assigned Pediatric Specialist Provider 05/18/24 Juhi Benson, RN Specialty Salesperson Books Hematology & Oncology 05/29/24 documented as of this encounter
--- OUTSIDE RECORDS SUMMARY | 2024-06-25 16:17 | XMS_ITS | Encounter Summary ---
Author Organization [place] Address [address] [place] [address]. 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 Author Pain Management General On track( 025 12:40 PM PEANUT VENDOR) Yes Juhi Benson RN Note: Goal Statement: [...] on filedocumented in this encounter Care Teams Maintenance Mechanic Relationship Specialty Start Date End Date No Ref-Primary, Physician PCP - General 03/15/24 06/17/24 Mor Ramsey Medical Student 04/03/24 Case Samuel MD [address] [place] [address] [address] [place] [address] Assigned Pediatric Specialist Provider 05/18/24 Juhi Benson RN Specialty Shoer Hematology & Oncology 05/29/24 documented as of this encounter
--- OUTSIDE RECORDS SUMMARY | 2024-06-25 16:17 | XMS_ITS | Encounter Summary ---
Author Organization [facility] Address [address] [place] [address] Care Team Providers Care Packing Line Operator Name Role Phone Roxy Mor Unavailable Unavailable Case Samuel MD Unavailable [phone] Juhi Benson RN Unavailable Unavailable Veronica Joseph MD Primary Care Provider [phone] Reason for Visit * Reason Comments Sickle Cell Pain Crisis Encounter Details Date Type Department Care Team (Late st Contact Info) Description 06/22/2024 5:23 PM DIRECTOR OF MEDICAL STAFF SERVICES - 06/22/2024 10:02 PM DIRECTOR OF MEDICAL STAFF SERVICES Emergency [facility] Emergency Department [address] [place] [phone] Lynne Varner MD [address] [place] [address] [id number] Sickle cell anemia with crisis (H) Discharge [...] in an overnight residential, or couch-surfing.) Yes 06/20/2024 Are you worried [...] file Legal Sex Female 8:25 AM DIRECTOR OF MEDICAL STAFF SERVICES Gender Identity Not on file Sexual Orientation Not on file documented as of this encounter Last Filed Vital Signs Vital Sign Reading Time Taken Comments Blood Pressure 104/73 06/22/2024 5:03 PM DIRECTOR OF MEDICAL STAFF SERVICES Pulse 100 06/22/2024 5:03 PM DIRECTOR OF MEDICAL STAFF SERVICES Temperature 36.8 C (98.2 F) 06/22/2024 5:03 PM DIRECTOR OF MEDICAL STAFF SERVICES Respiratory Rate 16 06/22/2024 5:03 PM DIRECTOR OF MEDICAL STAFF SERVICES Oxygen Saturation 99% 06/22/2024 5:03 PM DIRECTOR OF MEDICAL STAFF SERVICES Inhaled Oxygen Concentration - - Weight 52.2 kg (115 lb) 06/22/2024 5:03 PM DIRECTOR OF MEDICAL STAFF SERVICES Height 154.9 cm (5' 1) 06/22/2024 5:03 PM DIRECTOR OF MEDICAL STAFF SERVICES Body Mass Index 21.73 06/22/2024 5:03 PM DIRECTOR OF MEDICAL STAFF SERVICES documented in this encounter Discharge Instructions * Discharge Instructions* Lynne Varner MD - 06/22/2024 5:43 PM DIRECTOR OF MEDICAL STAFF SERVICES TODAY'S VISIT: You were seen today for [...] or worsening symptoms or any concerns. CTOR OF MEDICAL STAFF SERVICES * Attachments The following attachments cannot be sent through Care Everywhere. * Sickle Cell Crisis (Algerian) documented in this encounter Medications at Time [...] 05/01/2024 naloxone (NARCAN) 4 MG/0.1ML nasal spray [place] 1 spray (4 mg) into one nostril [...] Surgical History, and Social History in the [employer] system. 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 Recently moved to [place] from [place], [place]. She is 1 of 9 [...] Social Connections: Socially Integrated (03/28/2024) [facility] Do you often [...] Status --------- ------ CBC with platelets and d...[[id number]] Abnormal Final result RBC and Platelet Morphology[[id number]] Please view results for these tests on [...] (H) LYNNE VARNER MD 06/22/2024 [facility] EMERGENCY DEPARTMENT Lynne Varner MD 06/22/24 8379 CTOR OF MEDICAL STAFF SERVICES * Milagros Lofton RN - 06/22/2024 5:06 PM CST Pt is here for sickle cell crisis. Pain in her back and both legs. PT took her home dilaudid oral at 2 pm. Pt coming in for her pain. Denies any symptoms. Triage Assessment (Adult) Row Name 06/22/24 6403 Triage Assessment Airway WDL WDL Respiratory WDL Respiratory WDL WDL Skin Circulation/Temperature WDL Skin Circulation/Temperature WDL WDL Cardiac WDL Cardiac WDL WDL Cardiac Rhythm Other (Comment) Peripheral/Neurovascular WDL Peripheral Neurovascular WDL WDL Cognitive/Neuro/Behavioral WDL Cognitive/Neuro/Behavioral WDL WDL CTOR OF MEDICAL STAFF SERVICES documented in this encounter Plan of Treatment Not on file documented as of this encounter Goals Goal Patient Goal Type Associated Problems Recent Progress Patient-Stated? Author Pain Management General On track( 025 12:40 PM DIRECTOR OF MEDICAL STAFF SERVICES) Yes Juhi Benson, RN Note: Goal [...] AND DIFFERENTIAL STAT 06/22/2024 7:10 PM DIRECTOR OF MEDICAL STAFF SERVICES CBC WITH PLATELETS & DIFFERENTIAL STAT 06/22/2024 7:10 PM DIRECTOR OF MEDICAL STAFF SERVICES RETICULOCYTE COUNT STAT 06/22/2024 7: 10 PM DIRECTOR OF MEDICAL STAFF SERVICES HCG QUALITATIVE STAT 06/22/2024 7:10 PM DIRECTOR OF MEDICAL STAFF SERVICES COMPREHENSIVE METABOLIC PANEL STAT 06/22/2024 7:10 PM DIRECTOR OF MEDICAL STAFF SERVICES documented in this encounter Results * (ABNORMAL) CBC with platelets and differential (06/22/2024 7:10 PM DIRECTOR OF MEDICAL STAFF SERVICES) Pathologist [facility] WBC Count 13.7(H) 4.0 - 11.0 10e3/uL 06/22/2024 7:47 PM DIRECTOR OF MEDICAL STAFF SERVICES [facility] RBC Count 2.48(L) 3.80 - 5.20 10e6/uL 06/22/2024 7:47 PM DIRECTOR OF MEDICAL STAFF SERVICES [facility] Hemoglobin 8.2(L) 11.7 - 15.7 g/dL 06/22/2024 7:47 PM DIRECTOR OF MEDICAL STAFF SERVICES [facility] Hematocrit 23.3(L) 35.0 - 47.0 % 06/22/2024 7:47 PM DIRECTOR OF MEDICAL STAFF SERVICES [facility] MCV 94 78 - 100 fL 06/22/2024 7:47 PM DIRECTOR OF MEDICAL STAFF SERVICES [facility] MCH 33.1(H) 26.5 - 33.0 pg 06/22/2024 7:47 PM DIRECTOR OF MEDICAL STAFF SERVICES [facility] MCHC 35.2 31.5 - 36.5 g/dL 06/22/2024 7:47 PM DIRECTOR OF MEDICAL STAFF SERVICES [facility] RDW 18.6(H) 10.0 - 15.0 % 06/22/2024 7:47 PM DIRECTOR OF MEDICAL STAFF SERVICES [facility] Platelet Count 470(H) 150 - 450 10e3/uL 06/22/2024 7:47 PM DIRECTOR OF MEDICAL STAFF SERVICES [facility] % Neutrophils 78 % 06/22/2024 7:47 PM DIRECTOR OF MEDICAL STAFF SERVICES [facility] % Lymphocytes 16 % 06/22/2024 7:47 PM DIRECTOR OF MEDICAL STAFF SERVICES [facility] % Monocytes 4 % 06/22/2024 7:47 PM DIRECTOR OF MEDICAL STAFF SERVICES [facility] % Eosinophils 1 % 06/22/2024 7:47 PM DIRECTOR OF MEDICAL STAFF SERVICES [facility] % Basophils 1 % 06/22/2024 7:47 PM DIRECTOR OF MEDICAL STAFF SERVICES [facility] % Immature Granulocytes 1 % 06/22/2024 7:47 PM DIRECTOR OF MEDICAL STAFF SERVICES [facility] NRBCs per 100 WBC 3(H) <1 /100 025 7:47 PM DIRECTOR OF MEDICAL STAFF SERVICES [facility] Absolute Neutrophils 10.6(H) 1.6 - 8.3 10e3/uL 06/22/2024 7:47 PM DIRECTOR OF MEDICAL STAFF SERVICES [facility] Absolute Lymphocytes 2.3 0.8 - 5.3 10e3/uL 06/22/2024 7:47 PM DIRECTOR OF MEDICAL STAFF SERVICES [facility] Absolute Monocytes 0.5 0.0 - 1.3 10e3/uL 06/22/2024 7:47 PM DIRECTOR OF MEDICAL STAFF SERVICES [facility] Absolute Eosinophils 0.1 0.0 - 0.7 10e3/uL 06/22/2024 7:47 PM DIRECTOR OF MEDICAL STAFF SERVICES [facility] Absolute Basophils 0.1 0.0 - 0.2 10e3/uL 06/22/2024 7:47 PM DIRECTOR OF MEDICAL STAFF SERVICES [facility] Absolute Immature Granulocytes 0.1 <=0.4 10e3/uL 06/22/2024 7:47 PM DIRECTOR OF MEDICAL STAFF SERVICES [facility] Absolute NRBCs 0.4 10e3/uL 06/22/2024 7:47 PM DIRECTOR OF MEDICAL STAFF SERVICES [facility] Blood VENOUS LINE / Unknown Venipuncture / Unknown 06/22/2024 7:10 PM DIRECTOR OF MEDICAL STAFF SERVICES 06/22/2024 7:16 PM DIRECTOR OF MEDICAL STAFF SERVICES Lynne Varner MD LAB - BLOOD ORDERABLES Fin al Result [facility] [place] [facility] [address] [facility], [address], [place] [address] [place] [address] * (ABNORMAL) Reticulocyte count (06/22/2024 7:10 PM DIRECTOR OF MEDICAL STAFF SERVICES) % Reticulocyte 5.3(H) 0.5 - 2.0 % 06/22/2024 7:23 PM DIRECTOR OF MEDICAL STAFF SERVICES [facility] Absolute Reticulocyte 0.130(H) 0.025 - 0.095 10e6/uL 06/22/2024 7:23 PM DIRECTOR OF MEDICAL STAFF SERVICES [facility] Blood VENOUS LINE / Unknown Venipuncture / Unknown 06/22/2024 7:10 PM DIRECTOR OF MEDICAL STAFF SERVICES 06/22/2024 7:16 PM DIRECTOR OF MEDICAL STAFF SERVICES Lynne Varner MD LAB - BLOOD ORDERABLES Fin al Result Performing Organization Address [facility] Co de Phone Number [facility] [place] [facility] [address] [facility], [address] * HCG qualitative Blood (06/22/2024 7:10 PM DIRECTOR OF MEDICAL STAFF SERVICES) Pathologist [facility] hCG Serum Qualitative Negative Negative JARET 06/22/2024 7:45 PM DIRECTOR OF MEDICAL STAFF SERVICES [facility] Comment:This test is for scr eening purposes. Results should be interpreted along with the clinical picture. Confirmation testing is available if warranted by ordering [id number], HCG Quantitative . Blood VENOUS LINE / Unknown Venipuncture / Unknown 06/22/2024 7:10 PM DIRECTOR OF MEDICAL STAFF SERVICES 06/22/2024 7:26 PM DIRECTOR OF MEDICAL STAFF SERVICES Lynne Varner MD LAB - BLOOD ORDERABLES Fin al Result [facility] [place] [facility] [address] [facility], [address] [place] [address], [facility] * (ABNORMAL) Comprehensive metabolic panel (06/22/2024 7:10 PM DIRECTOR OF MEDICAL STAFF SERVICES) Sodium 137 135 - 145 mmol/L 06/22/2024 8:00 PM DIRECTOR OF MEDICAL STAFF SERVICES [facility] Potassium 4.5 3.4 - 5.3 mmol/L 06/22/2024 8:00 PM DIRECTOR OF MEDICAL STAFF SERVICES [facility] Carbon Dioxide (CO2) 21(L) 22 - 29 mmol/L 06/22/2024 8:00 PM DIRECTOR OF MEDICAL STAFF SERVICES [facility] Anion Gap 8 7 - 15 mmol/L 06/22/2024 8:00 PM DIRECTOR OF MEDICAL STAFF SERVICES [facility] Urea Nitrogen 12.1 6.0 - 20.0 mg/dL 06/22/2024 8:00 PM DIRECTOR OF MEDICAL STAFF SERVICES [facility] Creatinine 0.71 0.51 - 0.95 mg/dL 06/22/2024 8:00 PM DIRECTOR OF MEDICAL STAFF SERVICES [facility] GFR Estimate >90 >60 mL/min/1.7 3m2 06/22/2024 8:00 PM DIRECTOR OF MEDICAL STAFF SERVICES [facility] Comment:eGFR calculated us2020 CKD-EPI equation. Calcium 9.5 8.8 - 10.4 mg/dL 06/22/2024 8:00 PM DIRECTOR OF MEDICAL STAFF SERVICES [facility] Chloride 108(H) 98 - 107 mmol/L 06/22/2024 8:00 PM DIRECTOR OF MEDICAL STAFF SERVICES [facility] Glucose 100(H) 70 - 99 mg/dL 06/22/2024 8:00 PM DIRECTOR OF MEDICAL STAFF SERVICES [facility] Alkaline Phosphatase 119 40 - 150 U/L 06/22/2024 8:00 PM DIRECTOR OF MEDICAL STAFF SERVICES [facility] AST 62(H) 0 - 45 U/L 06/22/2024 8:00 PM DIRECTOR OF MEDICAL STAFF SERVICES [facility] ALT 54(H) 0 - 50 U/L 06/22/2024 8:00 PM DIRECTOR OF MEDICAL STAFF SERVICES [facility] Protein Total 7.8 6.4 - 8.3 g/dL 06/22/2024 8:00 PM DIRECTOR OF MEDICAL STAFF SERVICES [facility] Albumin 4.1 3.5 - 5.2 g/dL 06/22/2024 8:00 PM DIRECTOR OF MEDICAL STAFF SERVICES [facility] Bilirubin Total 1.4(H) <=1.2 mg/dL 06/22/2024 8:00 PM DIRECTOR OF MEDICAL STAFF SERVICES [facility] Blood VENOUS LINE / Unknown Venipuncture / Unknown 06/22/2024 7:10 PM DIRECTOR OF MEDICAL STAFF SERVICES 06/22/2024 7:16 PM DIRECTOR OF MEDICAL STAFF SERVICES us Lynne Varner MD LAB - BLOOD ORDERABLES Fin al Result LAB[facility]ATORY [facility] [place] [facility] [address] [facility], [address] [place] [address] documented in [...] 1 dose $Given 06/22/2024 7:19 PM DIRECTOR OF MEDICAL STAFF SERVICES 25 mg heparin lock flush 100 unit/mL injection 100 Units 100 Units, Intravenous, ONCE, On Citlali 06/22/24 at 2150, For 1 dose $Given 06/22/2024 9:53 PM DIRECTOR OF MEDICAL STAFF SERVICES 100 Units hydromorphone (DILAUDID) injection 2 mg 2 mg, Intravenous, EVERY 1 HOUR PRN, severe pain, Starting on [place] 06/22/24 at 1735, For 3 doses $Given 06/22/2024 9:33 PM DIRECTOR OF MEDICAL STAFF SERVICES 2 mg $Given 06/22/2024 8:34 PM DIRECTOR OF MEDICAL STAFF SERVICES 2 mg $Given 06/22/2024 7:20 PM DIRECTOR OF MEDICAL STAFF SERVICES 2 mg lactated ringers BOLUS 1,000 mL Intravenous, 1,000 mL, ONCE, at 1,000 mL/hr, Administer over 1 Hours, On [place]lali 06/22/24 at 1740, For 1 dose $New Bag 06/22/2024 7:19 PM DIRECTOR OF MEDICAL STAFF SERVICES 1,000 mLs 1000 mL/hr ondansetron (ZOFRAN) injection 4 mg 4 mg, Intravenous, EVERY 30 MIN PRN, nausea, vomiting, Administer over 2-5 Minutes, Starting on [place] 06/22/24 at 1735, For 3 doses, May repeat in 30 minutes as needed, up to 3 doses. $Given 06/22/2024 7:19 PM DIRECTOR OF MEDICAL STAFF SERVICES 4 mg documented in this encounter Active and Recently Administered Medications Times are shown in DIRECTOR OF MEDICAL STAFF SERVICES. Scheduled Medication Order 06/20/2024 06/21/2024 06/22/2024 diphenhydrAMINE [...] RN) documented in this encounter Care Teams Packing Line Operator Relationship Specialty Start Date End Date Veronica Joseph MD [address] [place] [address] PCP - General Family Medicine 06/18/24 Mor Ramsey Medical Student 04/03/24 Case Samuel MD [address] [place] [address], [address] [place] [address] Assigned Pediatric Specialist Provider 05/18/24 Juhi Benson, RN Specialty Pit Furnace Operator Hematology & Oncology 05/29/24 documented as of this encounter
--- OUTSIDE RECORDS SUMMARY | 2024-06-25 16:17 | XMS_ITS | Encounter Summary ---
Author Organization [facility] Address [address] [place] [address] Care Team Providers Care First Aid Nurse Name Role Phone RoxyElvirac Unavailable Unavailable Case Samuel MD Unavailable [phone] Juhi Benson RN Unavailable Unavailable Veronica Joseph MD Primary Care Provider [phone] Reason for Visit * Reason Comments Sickle Cell Pain Crisis Pt reports pain in back and b/l legs Encounter Details Date Type Department Care Team (Late st Contact Info) Description 06/23/2024 6:03 PM FREELANCE DIRECTOR - 06/23/2024 9:47 PM FREELANCE DIRECTOR Emergency [facility] Emergency Department [address] [place] [phone] Dayna Crane MD [address] [address] Sickle cell disease with crisis (H) Discharge [...] on file Legal Sex Female 8:25 AM FREELANCE DIRECTOR Gender Identity Not on file Sexual Orientation Not on file documented as of this encounter Last Filed Vital Signs Vital Sign Reading Time Taken Comments Blood Pressure 114/66 06/23/2024 7:49 PM FREELANCE DIRECTOR Pulse 100 06/23/2024 5:53 PM FREELANCE DIRECTOR Temperature 36.7 C (98 F) 06/23/2024 7:49 PM FREELANCE DIRECTOR Respiratory Rate 16 06/23/2024 7:49 PM FREELANCE DIRECTOR Oxygen Saturation 99% 06/23/2024 7:49 PM FREELANCE DIRECTOR Inhaled Oxygen Concentration - - Weight 52.2 kg (115 lb) 06/23/2024 5:53 PM FREELANCE DIRECTOR Height 154.9 cm (5' 1) 06/23/2024 5:53 PM FREELANCE DIRECTOR Body Mass Index 21.73 06/23/2024 5:53 PM FREELANCE DIRECTOR documented in this encounter Discharge Instructions * Discharge Instructions* Dayna Crane MD - 06/23/2024 9:00 PM FREELANCE DIRECTOR Please make an appointment to follow up with Your Primary Care Provider in 2-3 days. LANCE DIRECTOR LANCE DIRECTOR * Attachments The following attachments cannot be sent through Care Everywhere. * Sickle Cell Crisis (Haitian) documented in this encounter Medications at Time [...] 05/01/2024 naloxone (NARCAN) 4 MG/0.1ML nasal spray [place] 1 spray (4 mg) into one nostril [...] Booker - 06/23/2024 6:12 PM CST Bed: [facility] Expected date: Expected time: Means of arrival: Comments: X3 monitor: G42 LANCE DIRECTOR * Melanie Menon RN - 06/23/2024 5:54 [...] WDL WDL Cognitive/Neuro/Behavioral WDL Cognitive/Neuro/Behavioral WDL WDL LANCE DIRECTOR documented in this encounter Plan of Treatment Not on file documented as of this encounter Goals Goal Patient Goal Type Associated Problems Recent Progress Patient-Stated? Author Pain Management General On track( 025 12:40 PM FREELANCE DIRECTOR) Yes Juhi Benson, RN Note: Goal Statement: [...] PLATELETS AND DIFFERENTIAL STAT 06/23/2024 6:22 PM FREELANCE DIRECTOR CBC WITH PLATELETS & DIFFERENTIAL STAT 06/23/2024 6:22 PM FREELANCE DIRECTOR HCG QUALITATIVE STAT 06/23/2024 6:22 PM FREELANCE DIRECTOR DIFFERENTIAL STAT 06/23/2024 6:22 PM FREELANCE DIRECTOR COMPREHENSIVE METABOLIC PANEL STAT 06/23/2024 6:22 PM FREELANCE DIRECTOR documented in this encounter Results * (ABNORMAL) Manual Differential (06/23/2024 6:22 PM FREELANCE DIRECTOR) Pathologist [facility] % Neutrophils 73 % 06/23/2024 7:05 PM FREELANCE DIRECTOR [facility] % Lymphocytes 24 % 06/23/2024 7:05 PM FREELANCE DIRECTOR [facility] % Monocytes 2 % 06/23/2024 7:05 PM FREELANCE DIRECTOR [facility] % Eosinophils 0 % 06/23/2024 7:05 PM FREELANCE DIRECTOR [facility] % Basophils 2 % 06/23/2024 7:05 PM FREELANCE DIRECTOR [facility] NRBCs per 100 WBC 12(H) <=0 % 06/23/2024 7:05 PM FREELANCE DIRECTOR [facility] Absolute Neutrophils 7.2 1.6 - 8.3 10e3/uL 06/23/2024 7:05 PM FREELANCE DIRECTOR [facility] Absolute Lymphocytes 2.3 0.8 - 5.3 10e3/uL 06/23/2024 7:05 PM FREELANCE DIRECTOR [facility] Absolute Monocytes 0.2 0.0 - 1.3 10e3/uL 06/23/2024 7:05 PM FREELANCE DIRECTOR [facility] Absolute Eosinophils 0.0 0.0 - 0.7 10e3/uL 06/23/2024 7:05 PM FREELANCE DIRECTOR [facility] Absolute Basophils 0.2 0.0 - 0.2 10e3/uL 06/23/2024 7:05 PM FREELANCE DIRECTOR [facility] Absolute NRBCs 1.2(H) <=0.0 10e3/uL 025 7:05 PM FREELANCE DIRECTOR [facility] RBC Morphology Confirmed RBC Indices 06/23/2024 7:05 PM FREELANCE DIRECTOR [facility] Platelet Assessment Automated Count Confirmed. Platelet morphology is normal. Automated Count Confirmed. Platelet morphology is normal. 06/23/2024 7:05 PM FREELANCE DIRECTOR [facility] Polychromasia Slight(A) None Seen 06/23/2024 7:05 PM FREELANCE DIRECTOR [facility] Sickle Cells Slight(A) None Seen 06/23/2024 7:05 PM FREELANCE DIRECTOR [facility] Target Cells Slight(A) None Seen 06/23/2024 7:05 PM FREELANCE DIRECTOR [facility] Blood BLOOD SPECIMEN / Unknown Venipuncture / Unknown 06/23/2024 6:22 PM FREELANCE DIRECTOR 06/23/2024 6:34 PM FREELANCE DIRECTOR us Dayna Crane MD LAB - BLOOD ORDERABLES Final Re sult [facility] [place] [facility] [address] [facility], [address] [place] [address] * (ABNORMAL) CBC with platelets and differential (06/23/2024 6:22 PM FREELANCE DIRECTOR) WBC Count 9.8 4.0 - 11.0 10e3/uL 06/23/2024 6:45 PM FREELANCE DIRECTOR [facility] RBC Count 2.49(L) 3.80 - 5.20 10e6/uL 06/23/2024 6:45 PM FREELANCE DIRECTOR [facility] Hemoglobin 8.0(L) 11.7 - 15.7 g/dL 06/23/2024 6:45 PM FREELANCE DIRECTOR [facility] Hematocrit 24.2(L) 35.0 - 47.0 % 06/23/2024 6:45 PM FREELANCE DIRECTOR [facility] MCV 97 78 - 100 fL 06/23/2024 6:45 PM FREELANCE DIRECTOR [facility] MCH 32.1 26.5 - 33.0 pg 06/23/2024 6:45 PM FREELANCE DIRECTOR [facility] MCHC 33.1 31.5 - 36.5 g/dL 06/23/2024 6:45 PM FREELANCE DIRECTOR [facility] RDW 18.8(H) 10.0 - 15.0 % 06/23/2024 6:45 PM FREELANCE DIRECTOR [facility] Platelet Count 482(H) 150 - 450 10e3/uL 06/23/2024 6:45 PM FREELANCE DIRECTOR [facility] Blood BLOOD SPECIMEN / Unknown Venipuncture / Unknown 06/23/2024 6:22 PM FREELANCE DIRECTOR 06/23/2024 6:34 PM FREELANCE DIRECTOR Dayna Crane MD LAB - BLOOD ORDERABLES Final Re sult Performing Organization Address City/[facility]/ZIP Co de Phone Number [facility] [place] [facility] [address] [facility], [address] [phone] [place] [address] * HCG qualitative Blood (06/23/2024 6:22 PM FREELANCE DIRECTOR) Pathologist [facility] hCG Serum Qualitative Negative Negative JARET 06/23/2024 6:49 PM FREELANCE DIRECTOR [facility] Comment:This test is for scr eening purposes. Results should be interpreted along with the clinical picture. Confirmation testing is available if warranted by ordering [id number], HCG Quantitative . Blood BLOOD SPECIMEN / Unknown Venipuncture / Unknown 06/23/2024 6:22 PM FREELANCE DIRECTOR 06/23/2024 6:38 PM FREELANCE DIRECTOR Dayna Crane MD LAB - BLOOD ORDERABLES Final Re sult Performing Organization Address [facility] de Phone Number [facility] [place] [facility] [address] [facility], [address] [id number] * (ABNORMAL) Comprehensive metabolic panel (06/23/2024 6:22 PM FREELANCE DIRECTOR) Pathologist [facility] Sodium 140 135 - 145 mmol/L 06/23/2024 7:13 PM FREELANCE DIRECTOR [facility] Potassium 4.3 3.4 - 5.3 mmol/L 06/23/2024 7:13 PM FREELANCE DIRECTOR [facility] Carbon Dioxide (CO2) 24 22 - 29 mmol/L 06/23/2024 7:13 PM FREELANCE DIRECTOR [facility] Anion Gap 7 7 - 15 mmol/L 06/23/2024 7:13 PM FREELANCE DIRECTOR [facility] Urea Nitrogen 6.8 6.0 - 20.0 mg/dL 06/23/2024 7:13 PM FREELANCE DIRECTOR [facility] Creatinine 0.61 0.51 - 0.95 mg/dL 06/23/2024 7:13 PM FREELANCE DIRECTOR [facility] GFR Estimate >90 >60 mL/min/1.7 3m2 06/23/2024 7:13 PM FREELANCE DIRECTOR [facility] Comment:eGFR calculated 2020 CKD-EPI equation. Calcium 8.8 8.8 - 10.4 mg/dL 06/23/2024 7:13 PM FREELANCE DIRECTOR [facility] Chloride 109(H) 98 - 107 mmol/L 06/23/2024 7:13 PM FREELANCE DIRECTOR [facility] Glucose 102(H) 70 - 99 mg/dL 06/23/2024 7:13 PM FREELANCE DIRECTOR [facility] Alkaline Phosphatase 125 40 - 150 U/L 06/23/2024 7:13 PM FREELANCE DIRECTOR [facility] AST 84(H) 0 - 45 U/L 06/23/2024 7:13 PM FREELANCE DIRECTOR [facility] ALT 69(H) 0 - 50 U/L 06/23/2024 7:13 PM FREELANCE DIRECTOR [facility] Protein Total 7.8 6.4 - 8.3 g/dL 06/23/2024 7:13 PM FREELANCE DIRECTOR [facility] Albumin 4.2 3.5 - 5.2 g/dL 06/23/2024 7:13 PM FREELANCE DIRECTOR [facility] Bilirubin Total 1.5(H) <=1.2 mg/dL 06/23/2024 7:13 PM FREELANCE DIRECTOR [facility] Blood BLOOD SPECIMEN / Unknown Venipuncture / Unknown 06/23/2024 6:22 PM FREELANCE DIRECTOR 06/23/2024 6:34 PM FREELANCE DIRECTOR us Dayna Crane MD LAB - BLOOD ORDERABLES Final Re sult [facility] [place] [facility] [address] [facility], [address] [phone] documented in this encounter Visit [...] For 1 dose $Given 06/23/2024 7:43 PM FREELANCE DIRECTOR 25 mg heparin lock flush 100 unit/mL injection 100 Units 100 Units, Intravenous, ONCE, On Wed06/23/24 at 2100, For 1 dose $Given 06/23/2024 9:25 PM FREELANCE DIRECTOR 100 Units hydromorphone (DILAUDID) injection 2 mg 2 mg, Intravenous, EVERY 1 HOUR PRN, severe pain, Starting on Wed06/23/24 at 1806, X 3 max $Given 06/23/2024 8:46 PM FREELANCE DIRECTOR 2 mg $Given 06/23/2024 7:43 PM FREELANCE DIRECTOR 2 mg $Given 06/23/2024 6:28 PM FREELANCE DIRECTOR 2 mg sodium chloride 0.9% BOLUS 1,000 mL Intravenous, 1,000 mL, ONCE, at 1,000 mL/hr, Administer over 1 Hours, On Wed06/23/24 at 1810, For 1 dose $New Bag 06/23/2024 6:28 PM FREELANCE DIRECTOR 1,000 mLs 1000 mL/hr documented in this encounter Active and Recently Administered Medications Times are shown in FREELANCE DIRECTOR. Scheduled Medication Order 06/21/2024 06/22/2024 06/23/2024 diphenhydrAMINE [...] RN) documented in this encounter Care Teams First Aid Nurse Relationship Specialty Start Date End Date Veronica Joseph MD [address] [place] [address] PCP - General Family Medicine 06/18/24 Mor Ramsey Medical Student 04/03/24 Case Samuel MD [address] [place] [address], [address] [place] [address] Assigned Pediatric Specialist Provider 05/18/24 Juhi Benson, SOFIA Specialty Interventional Physician Hematology & Oncology 05/29/24 documented as of this encounter
--- OUTSIDE RECORDS SUMMARY | 2024-06-25 16:17 | XMS_ITS | Encounter Summary ---
Author Organization [facility] Address [address] [place] [address]. 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 Call member services at your health plan with any benefit or coverage questions. NING CHECKER Reason for Visit * Reason Comments Sickle Cell Pain Crisis * Auth/Cert Specialty Diagnoses / Procedures Referred By Contkameron t Referred To Contact EMERGENCY MEDICINE Diagnoses Acute chest pain Sickle cell pain crisis (H) [facility] Emergency Department [address] [place] [address] Phone: tel: Referral ID Status Reason Start Date Expiration Date Visits Re quested Visits Authorized [id number] 1 1 Encounter Details Date Type Department Care Team (Latest Contact Info) Description 06/12/2024 6:38 PM ALIGNING CHECKER - 06/15/2024 10:48 AM ALIGNING CHECKER Hospital Encounter [facility] Emergency Department [address] [place] [phone] Abdelrahman Goddard MD [address] [place] [address] Andres Jain DO Duffy, Briar, MD [address] [facility] [address] [place] [address] 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) [...] on file Legal Sex Female 8:25 AM ALIGNING CHECKER Gender Identity Not on file Sexual Orientation Not on file documented as of this encounter Last Filed Vital Signs Vital Sign Reading Time Taken Comments Blood Pressure 99/64 06/15/2024 6:10 AM ALIGNING CHECKER Pulse 75 06/15/2024 6:10 AM ALIGNING CHECKER Temperature 36.7 C (98 F) 06/15/2024 6:10 AM ALIGNING CHECKER Respiratory Rate 16 06/15/2024 6:10 AM ALIGNING CHECKER Oxygen Saturation 100% 06/15/2024 6:10 AM ALIGNING CHECKER Inhaled Oxygen Concentration - - Weight - - Height - - Body Mass Index - - documented in this encounter Discharge Summaries * Rl Elias MD - 06/15/2024 8:58 AM CST [facility] Discharge Summary - Medicine & Pediatrics Date of Admission: 06/12/2024 Date of Discharge: 06/15/2024 Discharging Provider: Dr Rl Elias, Dr German Hall Discharge Service: Medicine Service, [facility] TEAM 1 Discharge Diagnoses Acute sickle [...] 5 day course of antibiotics - Continue HAT MODEL hydroxyurea - Continue HAT MODEL folic acid - Continue albuterol inhaler QID given in the ED - Patient should follow up with her PCP upon discharge in 2-3 weeks - Patient should restart pain plan as taking at home with PO hydromorphone 2 mg Q6H PRN for pain upon discharge #Anxiety #Nausea - Continue HAT MODEL Fluoxetine 10 mg daily Consultations This Hospital Stay HEMATOLOGY ADULT IP CONSULT CARE MANAGEMENT / SOCIAL WORK IP CONSULT Code Status Full Code The patient was discussed with Dr. Hall. MD Oliver LANGLEY [address] [place] [address] EMERGENCY DEPARTMENT [address] [facility] [id number] Physical Exam Vital Signs: Temp: 98 ??F [...] your primary care provider & your primary Milk Receiver as indicated. Activity Your activity upon discharge: [...] Narrative EXAM: XR CHEST 2 VIEWS LOCATION: [facility] DATE: 06/12/2024 INDICATION: CP COMPARISON: 06/03/2024, [...] E-Prescribe naloxone (NARCAN) 4 MG/0.1ML nasal spray Shelby 1 spray (4 mg) into one nostril [...] German Hall MD at 06/22/2024 12:17 PM ALIGNING CHECKER NING CHECKER NING CHECKER Associated attestation - German Hall MD - 06/22/2024 12:17 PM ALIGNING CHECKER Attestation: This patient has been seen and [...] 05/01/2024 naloxone (NARCAN) 4 MG/0.1ML nasal spray Shelby 1 spray (4 mg) into one nostril [...] Overall, I spent 35 minutes today (DOS) [id number] and/or coordinating care as documented above and specifically listed as below: --Reviewing documentation related to patient's history and this current admission available in [facility] --Review and clinical interpretation of pertinent laboratory test results and radiology reports from this admission --Discussion of the patient's case with the members of the Hematology Consult Team --Discussion with the patient --Documentation in the electronic health record NING CHECKER * Rl Elias MD - 06/14/2024 7:08 [...] Service (when I saw the patient): 06/14/24 [facility] Progress Note - [facility], [facility] Date of Admission: [...] 7-9, most recent Hbg 8.8 on 06/07 HAT MODEL. Hb.5 -> 6.4 -> 6.8 -> 6.9 Plan: - Blood cultures pending x2 - NGTD - CTM hemoglobin daily - Ordered Voltaren gel, lidocaine patches, and icy hot PRN - Continue Ceftriaxone and Azithromycin for ppx (06/12 -*), consider transition to PO this afternoon - Continue HAT MODEL hydroxyurea - Continue HAT MODEL folic acid - Continue IS - type and screen ordered, consented for blood on 06/13 - no indication for transfusion unless hemodynamically unstable - Hematology consulted, appreciate recs - Hydromorphone 2 mg IV Q2H scheduled--titrate within 24-48 hours - Maintenance LR - Transfusion not recommended at this time - albuterol inhaler q6h, zofran, benadryl, docusate, senna PRN #Anxiety #Nausea - Continue HAT MODEL Fluoxetine - Benadryl PRN per Pain Plan [...] Nivia Carvajal, MS3 Medical Student Medicine Service, [facility] TEAM [address] [place] [address] Securely message with [employer] (more info) Text page via [facility] Paging/Directory See signed in provider for up [...] German Hall MD at 06/19/2024 8:50 AM ALIGNING CHECKER NING CHECKER NING CHECKER NING CHECKER Associated attestation - German Hall MD - 06/19/2024 8:50 AM ALIGNING CHECKER Attestation: This patient has been seen and [...] Service (when I saw the patient): 06/13/24 [facility] Progress Note - Medicine Service, [facility] TEAM 1 Date of Admission: 06/12/2024 [...] 7-9, most recent Hbg 8.8 on 06/07 HAT MODEL. Hb.5 -> 6.4 Plan: -Blood cultures pending x2 -CTM hemoglobin daily -Continue Ceftriaxone and Azithromycin for ppx (06/12 -*) -Continue HAT MODEL hydroxyurea -Continue HAT MODEL folic acid - type and screen ordered, consented for blood - no indication for transfusion unless hemodynamic instability - Hematology consulted, appreciate recs -Hydromorphone 2 mg IV Q3H scheduled--titrate within 24-48 hours -Maintenance LR -Transfusion not recommended at this time - zofran, benadryl, docusate, senna PRN #Anxiety #Nausea -Continue HAT MODEL Fluoxetine -Benadryl PRN per Pain Plan -Zofran [...] Nivia Carvajal, MS3 Medical Student Medicine Service, [facility] TEAM [address] [place] [address] Securely message with [employer] (more info) Text page via [employer] Paging/Directory See signed in provider for up [...] Narrative EXAM: XR CHEST 2 VIEWS LOCATION: [facility] DATE: 06/12/2024 INDICATION: CP COMPARISON: 06/03/2024, [...] German Hall MD at 06/14/2024 8:25 AM ALIGNING CHECKER NING CHECKER NING CHECKER Associated attestation - German Hall MD - 06/14/2024 8:25 AM ALIGNING CHECKER Attestation: This patient has been seen and evaluated by me, German Hall MD. Discussed with the house staff team or resident(s) and agree with the findings and plan in this note. I have reviewed today's Medications, Vital Signs, and Labs. DOS 06/13 * Mary Flores MD - 06/12/2024 8:20 PM CST call center director Hematology fellow note 29F Sickle cell [...] Flores MD MS Hematology fellow, PGY5 Pager: [phone] Cosigned by Kirstin Long MD at 06/13/2024 7:25 AM ALIGNING CHECKER NING CHECKER NING CHECKER NING CHECKER Associated attestation - Kirstin Long MD - 06/13/2024 7:25 AM ALIGNING CHECKER Physician Attestation I discussed patient overnight with fellow extrusion manager. I agree with plan as outlined. I did not see thepatient on this date. Kirstin Long MD/PhD documented in this encounter H&P Notes * Laquita Kelley MD - 06/12/2024 9:37 PM CST [facility] History and Physical - Medicine Service, [facility] TEAM Date of Admission: 06/12/2024 Assessment [...] of avascular necrosis of left hip -Continue HAT MODEL hydroxyurea -Continue HAT MODEL folic acid -Transfuse for Hb<7 #Stroke reported [...] Jain . Laquita Kelley MD Medicine Service, [facility] Securely message with [employer] (more info) Text page via [facility] Paging/Directory See signed in provider for 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, had port[facility]cath in [facility] Functional asplenia Gallstones Hb-SS disease without [...] 4 MG/0.1ML nasal spray No No Sig: Shelby 1 spray (4 mg) into one nostril [...] Andres Jain DO at 06/12/2024 10:27 PM ALIGNING CHECKER NING CHECKER NING CHECKER NING CHECKER NING CHECKER Associated attestation - Andres Jain DO - 06/12/2024 10:27 PM ALIGNING CHECKER Physician Attestation I saw this patient with [...] Communication Assessment Patient's communication style: spoken language (Guamanian or Bilingual) Cognitive Cognitive/Neuro/Behavioral: WDL Living Environment: [...] Depression: Not at risk (04/11/2024) Received from [facility] PHQ-2 PHQ-2 TOTAL SCORE: 1 Housing Stability: [...] Social Connections: Socially Integrated (03/28/2024) Received from [facility] Social Connections Do you often feel lonely or isolated from those around you?: 0 Health Literacy: Not on file Functional Status: Prior to admission patient needed assistance: Dependent ADLs:: Independent Dependent IADLs:: Independent Mental Health Status: Mental Health Status: No Current Concerns Chemical Dependency Status: Chemical Dependency Status: No Current Concerns Values/Beliefs: Spiritual, Cultural Beliefs, Alevism Practices, Values that affect care: no Discussed [...] Katheryn Carter RN, PHN, BSN Float Nurse Panel Raiser Operator Covering for Unit ED Phone [phone] NING CHECKER * Kirstin Long MD - 06/13/2024 10:17 AM CSTAssociated Order(s): HEMATOLOGY ADULT IP CONSULT Images from the original note were not included. Hematology Consult Note Date of Service: 06/13/2024 Patient: Gianna Hernández Admission Date: 06/12/2024 Hospital Day # 1 Hematology Diagnosis: Sickle Cell Disease - HbSS Primary Outpatient Milk Receiver: Dr Samuel Current Treatment Plan: Inpatient: Opioid: 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, [facility] Functional asplenia Gallstones Hb-SS disease without [...] 11 naloxone (NARCAN) 4 MG/0.1ML nasal spray Shelby 1 spray (4 mg) into one nostril [...] Imaging EXAM: XR CHEST 2 VIEWS LOCATION: [facility] DATE: 06/12/2024 INDICATION: CP COMPARISON: 06/03/2024, 05/27/2024 IMPRESSION: A few faint peripheral reticulonodular opacities in the mid and lower lungs again seen.Lungs otherwise clear. No pleural effusion. No pneumothorax. Borderline cardiac enlargement unchanged. Port anterior right chest wall with right IJ central venous catheter tip low SVC. Port anterior left chest wall with left IJ central venous catheter tip low SVC. NING CHECKER documented in this encounter ED Notes * Juhi Crump RN - 06/12/2024 6:55 PM CST Bed: [facility] Expected date: Expected time: Means of arrival: Comments: SICK NING CHECKER * Lebron Aponte RN - 06/12/2024 6:34 PM CST Pt ambulatory to triage with CC of sickle cell pain in the L upper anterior chest. Was seen for this at [facility] last night. Reports interventions at [facility] were helpful, however pain has returned. Patient reports taking 4mg po Dilaudid at 1500 with partial relief of pain but is still severe. Contacted tumbling barrel painter and was instructed to come to [facility] EB. Reports SOB a little bit. It hurts to take a deep breath. Denies dizziness. Triage Assessment (Adult) Row Name 06/12/24 0954 Triage Assessment Airway WDL WDL Respiratory WDL [...] 5-->(V5) oriented Lester Coma Scale Score 15 NING CHECKER * Abdelrahman Goddard MD - 06/12/2024 6:20 PM CST Images from the original note were not included. [facility] ([facility]) 06/12/24 ED PROVIDER NOTE History No chief [...] background: 29 yo F, recently moved from [place] Sickle Cell Disease History Primary Milk Receiver/FIBROUS WALLBOARD INSPECTOR/PA: Lizzie Genotype: SS Acute Pain Crisis Treatment: 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, [facility] Functional asplenia Gallstones Hb-SS disease without [...] chest pain Rhythm: normal sinus Rate: 94BPM Latimer: Normal Ectopy: none Conduction: normal ST Segments/ [...] Rate 102 BPM Atrial Rate 102 BPM SC Interval 158 ms QRS Duration 78 ms QT 348 ms QTc 453 ms P Latimer 39 degrees R AXIS 66 degrees T Latimer 33 degrees Interpretation ECG Sinus tachycardia Nonspecific T wave abnormality Abnormal ECG When compared with ECG of 05-Jun-2024 11:40, No significant change was found Confirmed by SEE ED PROVIDER NOTE FOR, ECG INTERPRETATION ([id number]), electronic news gathering editor SELMA GARRISON ([id number]) on 06/11/2024 9:05:27 PM Medications - No [...] Hernadez, am serving as a trained medical collections specialist to document services personally performed by Abdelrahman Goddard MD, based on the provider's statements to me. I, Abdelrahman Goddard MD, was physically present and have reviewed and verified the accuracy of this note documented by Jovanny Hernadez. Abdelrahman Goddard MD [facility] EMERGENCY DEPARTMENT 06/12/2024 Abdelrahman Goddard MD 06/12/242023 NING CHECKER documented in this encounter Miscellaneous Notes * Plan of Care - Clay Avina RN - 06/15/2024 9:55 AM CST Goal Outcome Evaluation: Plan of Care Reviewed With: patient Overall Patient Progress: improving 4x A/O. VSS. RA. Independent. AVS reviewed, questions answered. Port de accessed with saline flush and heparin locked. NING CHECKER * Plan of Care - Kathy Levy RN - 06/15/2024 6:22 AM CST Goal Outcome Evaluation: Plan of Care Reviewed With: patient Overall Patient Progress: improving Pt is alert anf oriented x4. VSS, on room air with no SOB noted. On pain management for sickle cellcrisis. Tolerating diet well with no n/v. L chest port infusing intermittent IV ABT. Voiding well. Last BM HAT MODEL. Pt is up ad chandler. Will continue with plan of care. NING CHECKER * Plan of Care - Clay Avina RN - 06/14/2024 5:02 PM CST Goal Outcome Evaluation: Plan of Care Reviewed With: patient Overall Patient Progress: improving 4x A/O. VSS. Independent. Pain controlled with schedule q2hr IV dilaudid. Tolerating regular diet. Voiding spontaneously. Had nausea in AM, relieved with Zofran. Port SL. NING CHECKER * Pharmacy-Admission Medication History - Lorenza Valdes - 06/14/2024 11:19 AM CST Cloth Grader Supervisor Admission Medication History Admission medication history is complete. The information provided in this note is only as accurateas the sources available at the time of the update. Information Source(s): Patient and CareEverywhere/SureScripts via in-person Pertinent Information: Medication reconciliation completed at bedside with patient. Patient was a good historian of her medication names, doses, frequencies, and last doses. Changes made to HAT MODEL medication list: Added: Epi-pen: patient has pen available, but has not used recently. Ibuprofen: OTC product used PRN for pain. Benadryl: OTC product used PRN for itching due to hydromorphone. Deleted: None Changed: None Allergies reviewed with patient and updates made in EHR: yes Medication History Completed By: Lorenza Valdes 06/14/2024 11:19 AM HAT MODEL Med List Medication Sig Last Dose/Taking diphenhydrAMINE [...] Morning naloxone (NARCAN) 4 MG/0.1ML nasal spray Shelby 1 spray (4 mg) into one nostril alternating nostrilsas needed for opioid reversal (for opiate overdose if not breathing and unconscious. have your family member watch video on how to use/read information sheet). every 2-3 minutes until assistance arrives Taking As Needed Cosigned by Terrell Fernandez RPH at 06/15/2024 10:33 AM ALIGNING CHECKER NING CHECKER NING CHECKER Associated attestation - Terrell Fernandez RPH - 06/15/2024 10:33 AM ALIGNING CHECKER I have read and agree with the student's note. Terrell Fernandez, PGY-1 Liquid Waste Treatment Plant Operator * Provider Notification - Kiki Caal RN - 06/13/2024 7:27 PM ALIGNING CHECKER Notified providers Nivia Carvajal, Laquita Kelley and Rl Elias of critical Hgb 6.8 at 1920. No new orders NING CHECKER * Plan of Care - Katheryn Carter RN - 06/13/2024 12:44 PM CST Goal Outcome Evaluation: Plan of Care Reviewed With: patient Overall Patient Progress: improvingOverall Patient Progress: improving Outcome Evaluation: Plan: TBD Katheryn Carter RN, PHN, BSN Float Nurse Panel Raiser Operator Covering for Unit ED Phone [phone] NING CHECKER * Plan of Care - Shauna Cuadra [...] with POC. Notify primary team with changes. NING CHECKER documented in this encounter Plan of [...] Management General On track( 025 12:40 PM ALIGNING CHECKER) Yes Juhi Benson RN Note: Goal Statement: [...] PLATELETS AND DIFFERENTIAL STAT 06/15/2024 6:09 AM ALIGNING CHECKER CBC WITH PLATELETS & DIFFERENTIAL STAT 06/15/2024 6:09 AM ALIGNING CHECKER BASIC METABOLIC PANEL STAT 06/15/2024 6:09 AM ALIGNING CHECKER XR CHEST PORT 1 VIEW STAT 06/14/2024 8:46 AM ALIGNING CHECKER BASIC METABOLIC PANEL STAT 06/14/2024 7:08 AM ALIGNING CHECKER CBC WITH PLATELETS STAT 06/14/2024 7: 08 AM ALIGNING CHECKER CBC WITH PLATELETS STAT 06/13/2024 6: 32 PM ALIGNING CHECKER RBC AND PLATELET MORPHOLOGY STAT 06/13/2024 6:00 AM ALIGNING CHECKER CBC WITH PLATELETS AND DIFFERENTIAL STAT 06/13/2024 6:00 AM ALIGNING CHECKER CBC WITH PLATELETS & DIFFERENTIAL STAT 06/13/2024 6:00 AM ALIGNING CHECKER BASIC METABOLIC PANEL STAT 06/13/2024 5:59 AM ALIGNING CHECKER RESPIRATORY PANEL PCR STAT 06/12/2024 9:34 PM ALIGNING CHECKER BLOOD CULTURE STAT 06/12/2024 8:46 PM ALIGNING CHECKER BLOOD CULTURE STAT 06/12/2024 8:46 PM ALIGNING CHECKER XR CHEST 2 VIEWS STAT 06/12/2024 7:38 PM ALIGNING CHECKER RBC AND PLATELET MORPHOLOGY STAT 06/12/2024 7:17 PM ALIGNING CHECKER CBC WITH PLATELETS AND DIFFERENTIAL STAT 06/12/2024 7:17 PM ALIGNING CHECKER TYPE AND SCREEN, ADULT Routine 06/12/2024 7:17 PM ALIGNING CHECKER TROPONIN T, HIGH SENSITIVITY STAT 06/12/2024 7:17 PM ALIGNING CHECKER CBC WITH PLATELETS & DIFFERENTIAL STAT 06/12/2024 7:17 PM ALIGNING CHECKER INR STAT 06/12/2024 7:17 PM ALIGNING CHECKER BLOOD GAS VENOUS STAT 06/12/2024 7:17 PM ALIGNING CHECKER ABO/RH TYPE AND SCREEN Add-On 06/12/2024 7:17 PM ALIGNING CHECKER BASIC METABOLIC PANEL STAT 06/12/2024 7:17 PM ALIGNING CHECKER EKG 12-LEAD, TRACING ONLY STAT 06/12/2024 6:37 PM ALIGNING CHECKER documented in this encounter Results * (ABNORMAL) CBC with platelets and differential (06/15/2024 6:09 AM ALIGNING CHECKER) Pathologist [facility] WBC Count 11.8(H) 4.0 - 11.0 10e3/uL 06/15/2024 6:36 AM ALIGNING CHECKER [facility] RBC Count 2.27(L) 3.80 - 5.20 10e6/uL 06/15/2024 6:36 AM ALIGNING CHECKER [facility] Hemoglobin 7.2(L) 11.7 - 15.7 g/dL 06/15/2024 6:36 AM ALIGNING CHECKER [facility] Hematocrit 20.4(L) 35.0 - 47.0 % 06/15/2024 6:36 AM ALIGNING CHECKER [facility] MCV 90 78 - 100 fL 06/15/2024 6:36 AM ALIGNING CHECKER [facility] MCH 31.7 26.5 - 33.0 pg 06/15/2024 6:36 AM ALIGNING CHECKER [facility] MCHC 35.3 31.5 - 36.5 g/dL 06/15/2024 6:36 AM ALIGNING CHECKER [facility] RDW 19.0(H) 10.0 - 15.0 % 06/15/2024 6:36 AM ALIGNING CHECKER [facility] Platelet Count 500(H) 150 - 450 10e3/uL 06/15/2024 6:36 AM ALIGNING CHECKER [facility] % Neutrophils 54 % 06/15/2024 6:36 AM ALIGNING CHECKER [facility] % Lymphocytes 31 % 06/15/2024 6:36 AM ALIGNING CHECKER [facility] % Monocytes 9 % 06/15/2024 6:36 AM ALIGNING CHECKER [facility] % Eosinophils 5 % 06/15/2024 6:36 AM ALIGNING CHECKER [facility] % Basophils 2 % 06/15/2024 6:36 AM ALIGNING CHECKER [facility] % Immature Granulocytes 1 % 06/15/2024 6:36 AM ALIGNING CHECKER [facility] NRBCs per 100 WBC 2(H) <1 /100 025 6:36 AM ALIGNING CHECKER [facility] Absolute Neutrophils 6.3 1.6 - 8.3 10e3/uL 06/15/2024 6:36 AM ALIGNING CHECKER [facility] Absolute Lymphocytes 3.6 0.8 - 5.3 10e3/uL 06/15/2024 6:36 AM ALIGNING CHECKER [facility] Absolute Monocytes 1.0 0.0 - 1.3 10e3/uL 06/15/2024 6:36 AM ALIGNING CHECKER [facility] Absolute Eosinophils 0.6 0.0 - 0.7 10e3/uL 06/15/2024 6:36 AM ALIGNING CHECKER [facility] Absolute Basophils 0.2 0.0 - 0.2 10e3/uL 06/15/2024 6:36 AM ALIGNING CHECKER [facility] Absolute Immature Granulocytes 0.1 <=0.4 10e3/uL 06/15/2024 6:36 AM ALIGNING CHECKER [facility] Absolute NRBCs 0.2 10e3/uL 06/15/2024 6:36 AM ALIGNING CHECKER [facility] Blood BLOOD SPECIMEN / Unknown IVAD (Port) / Unknown 06/15/2024 6:09 AM ALIGNING CHECKER 06/15/2024 6:18 AM ALIGNING CHECKER us Rl Elias MD LAB - BLOOD ORDER SYD Final Result [facility] [address] [facility], [address] [place] [address] * (ABNORMAL) Basic metabolic panel (06/15/2024 6:09 AM ALIGNING CHECKER) Sodium 136 135 - 145 mmol/L 06/15/2024 7:13 AM ALIGNING CHECKER [facility] Potassium 4.4 3.4 - 5.3 mmol/L 06/15/2024 7:13 AM ALIGNING CHECKER [facility] Chloride 104 98 - 107 mmol/L 06/15/2024 7:13 AM ALIGNING CHECKER [facility] Carbon Dioxide (CO2) 21(L) 22 - 29 mmol/L 06/15/2024 7:13 AM ALIGNING CHECKER [facility] Anion Gap 11 7 - 15 mmol/L 06/15/2024 7:13 AM ALIGNING CHECKER [facility] Urea Nitrogen 10.1 6.0 - 20.0 mg/dL 06/15/2024 7:13 AM ALIGNING CHECKER [facility] Creatinine 0.65 0.51 - 0.95 mg/dL 06/15/2024 7:13 AM ALIGNING CHECKER [facility] GFR Estimate >90 >60 mL/min/1.7 3m2 06/15/2024 7:13 AM ALIGNING CHECKER [facility] Comment:eGFR calculated us2020 CKD-EPI equation. Calcium 8.9 8.8 - 10.4 mg/dL 06/15/2024 7:13 AM ALIGNING CHECKER [facility] Glucose 104(H) 70 - 99 mg/dL 06/15/2024 7:13 AM ALIGNING CHECKER [facility] Blood BLOOD SPECIMEN / Unknown IVAD (Port) / Unknown 06/15/2024 6:09 AM ALIGNING CHECKER 06/15/2024 6:16 AM ALIGNING CHECKER Rl Elias MD LAB - BLOOD ORDER SYD Final Result [facility] [address] [facility], [address] [id number] * XR Chest Port 1 View (06/14/2024 8:46 AM ALIGNING CHECKER) Anatomical Region Laterality Modality Chest Digital Radiogra phy Impressions 06/14/2024 8:59 AM ALIGNING CHECKER Impression: Further increase in ill-defined opacity projecting over the right lower lung concerning for pneumonia. MARIO ALBERTO BLACKWOOD MD Narrative 06/14/2024 8:59 AM ALIGNING CHECKER Exam: XR CHEST PORT 1 VIEW, 06/14/2024 [...] (ABNORMAL) CBC with platelets (06/14/2024 7:08 AM ALIGNING CHECKER) WBC Count 13.4(H) 4.0 - 11.0 10e3/uL 06/14/2024 7:46 AM ALIGNING CHECKER [facility] RBC Count 2.30(L) 3.80 - 5.20 10e6/uL 06/14/2024 7:46 AM ALIGNING CHECKER [facility] Hemoglobin 6.9(LL) 11.7 - 15.7 g/dL 06/14/2024 7:46 AM ALIGNING CHECKER [facility] Hematocrit 21.6(L) 35.0 - 47.0 % 06/14/2024 7:46 AM ALIGNING CHECKER [facility] MCV 94 78 - 100 fL 06/14/2024 7:46 AM ALIGNING CHECKER [facility] MCH 30.0 26.5 - 33.0 pg 06/14/2024 7:46 AM ALIGNING CHECKER [facility] MCHC 31.9 31.5 - 36.5 g/dL 06/14/2024 7:46 AM ALIGNING CHECKER [facility] RDW 19.4(H) 10.0 - 15.0 % 06/14/2024 7:46 AM ALIGNING CHECKER [facility] LABORATORY Platelet Count 501(H) 150 - 450 10e3/uL 06/14/2024 7:46 AM ALIGNING CHECKER [facility] Blood BLOOD SPECIMEN / Unknown Venipuncture / Unknown 06/14/2024 7:08 AM ALIGNING CHECKER 06/14/2024 7:22 AM ALIGNING CHECKER us Rl Elias MD LAB - BLOOD ORDER SYD Final Result [facility] [address] [facility], [address] [phone] * (ABNORMAL) Basic metabolic panel (06/14/2024 7:08 AM ALIGNING CHECKER) Sodium 136 135 - 145 mmol/L 06/14/2024 7:57 AM ALIGNING CHECKER [facility] Potassium 4.2 3.4 - 5.3 mmol/L 06/14/2024 7:57 AM ALIGNING CHECKER [facility] Chloride 107 98 - 107 mmol/L 06/14/2024 7:57 AM ALIGNING CHECKER [facility] Carbon Dioxide (CO2) 20(L) 22 - 29 mmol/L 06/14/2024 7:57 AM ALIGNING CHECKER [facility] Anion Gap 9 7 - 15 mmol/L 06/14/2024 7:57 AM ALIGNING CHECKER [facility] Urea Nitrogen 6.5 6.0 - 20.0 mg/dL 06/14/2024 7:57 AM ALIGNING CHECKER [facility] Creatinine 0.71 0.51 - 0.95 mg/dL 06/14/2024 7:57 AM ALIGNING CHECKER [facility] GFR Estimate >90 >60 mL/min/1.7 3m2 06/14/2024 7:57 AM ALIGNING CHECKER [facility] Comment:eGFR calculated us2020 CKD-EPI equation. Calcium 8.9 8.8 - 10.4 mg/dL 06/14/2024 7:57 AM ALIGNING CHECKER [facility] Glucose 92 70 - 99 mg/dL 06/14/2024 7:57 AM ALIGNING CHECKER [facility] Blood BLOOD SPECIMEN / Unknown Venipuncture / Unknown 06/14/2024 7:08 AM ALIGNING CHECKER 06/14/2024 7:22 AM ALIGNING CHECKER Rl Elias MD LAB - BLOOD ORDER SYD Final Result [facility] [address] [facility], [address] [place] [address] * (ABNORMAL) CBC with platelets (06/13/2024 6:32 PM ALIGNING CHECKER) [facility] WBC Count 15.3(H) 4.0 - 11.0 10e3/uL 06/13/2024 7:10 PM ALIGNING CHECKER [facility] RBC Count 2.21(L) 3.80 - 5.20 10e6/uL 06/13/2024 7:10 PM ALIGNING CHECKER [facility] Hemoglobin 6.8(LL) 11.7 - 15.7 g/dL 06/13/2024 7:10 PM ALIGNING CHECKER [facility] Hematocrit 20.8(L) 35.0 - 47.0 % 06/13/2024 7:10 PM ALIGNING CHECKER [facility] MCV 94 78 - 100 fL 06/13/2024 7:10 PM ALIGNING CHECKER [facility] MCH 30.8 26.5 - 33.0 pg 06/13/2024 7:10 PM ALIGNING CHECKER [facility] MCHC 32.7 31.5 - 36.5 g/dL 06/13/2024 7:10 PM ALIGNING CHECKER [facility] RDW 19.6(H) 10.0 - 15.0 % 06/13/2024 7:10 PM ALIGNING CHECKER [facility] Platelet Count 495(H) 150 - 450 10e3/uL 06/13/2024 7:10 PM ALIGNING CHECKER [facility] Blood CENTRAL VENOUS CATHETER / Unknown VAD(CVC, PICC) / Unknown 06/13/2024 6:32 PM ALIGNING CHECKER 06/13/2024 6:52 PM ALIGNING CHECKER us Rl Elias MD LAB - BLOOD ORDER SYD Final Result [facility] [address] [facility], [address] [place] [address] * (ABNORMAL) RBC and Platelet Morphology (06/13/2024 6:00 AM ALIGNING CHECKER) [facility] RBC Morphology Confirmed RBC Indices 06/13/2024 3:45 PM ALIGNING CHECKER [facility] Platelet Assessment Automated Count Confirmed. Platelet morphology is normal. Automated Count Confirmed. Platelet morphology is normal. 06/13/2024 3:45 PM ALIGNING CHECKER [facility] Polychromasia Moderate(A) None Seen 06/13/2024 3:45 PM ALIGNING CHECKER [facility] Sickle Cells Moderate(A) None Seen 06/13/2024 3:45 PM ALIGNING CHECKER [facility] Target Cells Moderate(A) None Seen 06/13/2024 3:45 PM ALIGNING CHECKER [facility] Pathologist Review Comments (Blood) Sickle shaped red blood cells are present compatible with patient's history of sickle cell disease. [place] bodies are present compatible with hyposplenic blood picture. There is increased lymphocytes; however, the morphology of lymphocytes is polymorphous. Follow up CBC, diff for resolution of this findings is recommended. Danny Martinez MD on 06/13/2024 at 3:44 PM 06/13/2024 3:45 PM ALIGNING CHECKER [facility] Comment:This is an appended report. These results have been appended to a previously final verified report. Blood VENOUS LINE / Unknown IVAD (Port) / Unknown 06/13/2024 6:00 AM ALIGNING CHECKER 06/13/2024 6:16 AM ALIGNING CHECKER us Laquita Kelley MD LAB - BLOOD ORDERABLES Edited R esult - Final [facility] [address] [facility], [address] [phone] [address] [facility], [address] [phone] * (ABNORMAL) CBC with platelets and differential (06/13/2024 6:00 AM ALIGNING CHECKER) WBC Count 17.0(H) 4.0 - 11.0 10e3/uL 06/13/2024 9:51 AM ALIGNING CHECKER [facility] RBC Count 2.11(L) 3.80 - 5.20 10e6/uL 06/13/2024 9:51 AM ALIGNING CHECKER [facility] Hemoglobin 6.4(LL) 11.7 - 15.7 g/dL 06/13/2024 9:51 AM ALIGNING CHECKER [facility] Hematocrit 20.3(L) 35.0 - 47.0 % 06/13/2024 9:51 AM ALIGNING CHECKER [facility] MCV 96 78 - 100 fL 06/13/2024 9:51 AM ALIGNING CHECKER [facility] MCH 30.3 26.5 - 33.0 pg 06/13/2024 9:51 AM ALIGNING CHECKER [facility] MCHC 31.5 31.5 - 36.5 g/dL 06/13/2024 9:51 AM ALIGNING CHECKER [facility] RDW 19.8(H) 10.0 - 15.0 % 06/13/2024 9:51 AM ALIGNING CHECKER [facility] Platelet Count 458(H) 150 - 450 10e3/uL 06/13/2024 9:51 AM ALIGNING CHECKER [facility] % Neutrophils 40 % 06/13/2024 9:51 AM ALIGNING CHECKER [facility] % Lymphocytes 42 % 06/13/2024 9:51 AM ALIGNING CHECKER [facility] % Monocytes 13 % 06/13/2024 9:51 AM ALIGNING CHECKER [facility] % Eosinophils 3 % 06/13/2024 9:51 AM ALIGNING CHECKER [facility] % Basophils 1 % 06/13/2024 9:51 AM ALIGNING CHECKER [facility] % Immature Granulocytes 1 % 06/13/2024 9:51 AM ALIGNING CHECKER [facility] NRBCs per 100 WBC 0 <1 /100 025 9:51 AM ALIGNING CHECKER [facility] Absolute Neutrophils 6.7 1.6 - 8.3 10e3/uL 06/13/2024 9:51 AM ALIGNING CHECKER [facility] Absolute Lymphocytes 7.2(H) 0.8 - 5.3 10e3/uL 06/13/2024 9:51 AM ALIGNING CHECKER [facility] Absolute Monocytes 2.2(H) 0.0 - 1.3 10e3/uL 06/13/2024 9:51 AM ALIGNING CHECKER [facility] Absolute Eosinophils 0.5 0.0 - 0.7 10e3/uL 06/13/2024 9:51 AM ALIGNING CHECKER [facility] Absolute Basophils 0.2 0.0 - 0.2 10e3/uL 06/13/2024 9:51 AM ALIGNING CHECKER [facility] Absolute Immature Granulocytes 0.1 <=0.4 10e3/uL 06/13/2024 9:51 AM ALIGNING CHECKER [facility] Absolute NRBCs 0.1 10e3/uL 06/13/2024 9:51 AM ALIGNING CHECKER [facility] Blood VENOUS LINE / Unknown IVAD (Port) / Unknown 06/13/2024 6:00 AM ALIGNING CHECKER 06/13/2024 6:16 AM ALIGNING CHECKER Narrative [facility] - 06/13/2024 9:51 AM ALIGNING CHECKER Sent for review by Pathologist. See Pathologist comments after review. Tech Comments Patient Diagnosis: Sickle Cell crisis Reason for Sending: absolute lymphocyte > 5.4 Laquita Kelley MD LAB - BLOOD ORDERABLES Final Re sult [facility] Specialty Lab [address] [facility], [address] [phone] [address] [facility], [address] * (ABNORMAL) Basic metabolic panel (06/13/2024 5:59 AM ALIGNING CHECKER) Sodium 135 135 - 145 mmol/L 06/13/2024 6:45 AM ALIGNING CHECKER [facility] Potassium 4.3 3.4 - 5.3 mmol/L 06/13/2024 6:45 AM ALIGNING CHECKER [facility] Chloride 105 98 - 107 mmol/L 06/13/2024 6:45 AM ALIGNING CHECKER [facility] Carbon Dioxide (CO2) 21(L) 22 - 29 mmol/L 06/13/2024 6:45 AM ALIGNING CHECKER [facility] Anion Gap 9 7 - 15 mmol/L 06/13/2024 6:45 AM ALIGNING CHECKER [facility] Urea Nitrogen 4.9(L) 6.0 - 20.0 mg/dL 06/13/2024 6:45 AM ALIGNING CHECKER [facility] Creatinine 0.70 0.51 - 0.95 mg/dL 06/13/2024 6:45 AM ALIGNING CHECKER [facility] GFR Estimate >90 >60 mL/min/1.7 3m2 06/13/2024 6:45 AM ALIGNING CHECKER [facility] Comment:eGFR calculated us2020 CKD-EPI equation. Calcium 8.7(L) 8.8 - 10.4 mg/dL 06/13/2024 6:45 AM ALIGNING CHECKER [facility] Glucose 100(H) 70 - 99 mg/dL 06/13/2024 6:45 AM ALIGNING CHECKER [facility] Blood VENOUS LINE / Unknown IVAD (Port) / Unknown 06/13/2024 5:59 AM ALIGNING CHECKER 06/13/2024 6:16 AM ALIGNING CHECKER us Laquita Kelley MD LAB - BLOOD ORDERABLES Final Re sult [facility] [address] [facility], [address] [place] [address] * Respiratory Panel PCR (06/12/2024 9:34 PM ALIGNING CHECKER) Adenovirus Not Detected Not Detected 06/12/2024 11:53 PM ALIGNING CHECKER [facility] Coronavirus Not Detected Not Detected 06/12/2024 11:53 PM ALIGNING CHECKER [facility] Comment:This test detects Co ronavirus 229E, HKU1, NL63 and OC43 but does not distinguish between them. It does not detect MERS ( Respiratory Syndrome), SARS (Severe Acute Respiratory Syndrome) or 2019-nCoV (Novel 2019) Coronavirus. Human Metapneumovirus Not Detected Not Detected 06/12/2024 11:53 PM ALIGNING CHECKER [facility] Human Rhin/Enterovirus Not Detected Not Detected 06/12/2024 11:53 PM ALIGNING CHECKER [facility] Influenza A Not Detected Not Detected 06/12/2024 11:53 PM ALIGNING CHECKER [facility] Influenza A, H1 Not Detected Not Detected 06/12/2024 11:53 PM ALIGNING CHECKER [facility] Influenza A 2009 H1N1 Not Detected Not Detected 06/12/2024 11:53 PM ALIGNING CHECKER [facility] Influenza A, H3 Not Detected Not Detected 06/12/2024 11:53 PM ALIGNING CHECKER [facility] Influenza B Not Detected Not Detected 06/12/2024 11:53 PM ALIGNING CHECKER [facility] Parainfluenza Virus 1 Not Detected Not Detected 06/12/2024 11:53 PM ALIGNING CHECKER [facility] Parainfluenza Virus 2 Not Detected Not Detected 06/12/2024 11:53 PM ALIGNING CHECKER [facility] Parainfluenza Virus 3 Not Detected Not Detected 06/12/2024 11:53 PM ALIGNING CHECKER [facility] Parainfluenza Virus 4 Not Detected Not Detected 06/12/2024 11:53 PM ALIGNING CHECKER [facility] Respiratory Syncytial Virus A Not Detected Not Detected 06/12/2024 11:53 PM ALIGNING CHECKER [facility] Respiratory Syncytial Virus B Not Detected Not Detected 06/12/2024 11:53 PM ALIGNING CHECKER [facility] Chlamydia Pneumoniae Not Detected Not Detected 06/12/2024 11:53 PM ALIGNING CHECKER [facility] Mycoplasma Pneumoniae Not Detected Not Detected 06/12/2024 11:53 PM ALIGNING CHECKER [facility] Swab NASOPHARYNGEAL STRUCTURE / Unknown Non-blood Collection / Unknown 06/12/2024 9:34 PM ALIGNING CHECKER 06/12/2024 9:47 PM ALIGNING CHECKER Narrative [facility] - 06/12/2024 11:53 PM ALIGNING CHECKER The ePlex Respiratory Panel is a qualitative nucleic acid, multiplex, in vitro diagnostic test for the simultaneous detection and identification of multiple respiratory viral and bacterial nucleic acids in nasopharyngeal swabs collected in viral transport media from individual exhibiting signs and symptoms of respiratory infection. The assay has received FDA approval for the testing of nasopharyngeal (FIBROUS WALLBOARD INSPECTOR) swabs only. This test is used for clinical purposes and should not be regarded as investigational or for research. This laboratory is certified under the Clinical Laboratory Improvement Amendments of 1988 (CLIA-88) as qualified to perform high complexity clinical laboratory testing. Abdelrahman Goddard MD LAB - MICRO GENERAL ORDERABLES Final Result [facility] Inf. Diseases Diag. Lab [address] [facility], [address] [place] [phone] * Blood Culture Peripheral Blood (06/12/2024 8:46 PM ALIGNING CHECKER) Culture No Growth 06/17/2024 9:31 PM ALIGNING CHECKER [facility] Blood BLOOD SPECIMEN / Unknown Venipuncture / Unknown 06/12/2024 8:46 PM ALIGNING CHECKER 06/12/2024 8:53 PM ALIGNING CHECKER Narrative [facility] - 06/17/2024 9:31 PM ALIGNING CHECKER Only an Aerobic Blood Culture Bottle was collected, interpret results with caution. us Abdelrahman Goddard MD LAB - MICRO GENERAL ORDERABLES Final Result [facility] Inf. Diseases Diag. Lab [address] [facility], [address] * Blood Culture Peripheral Blood (06/12/2024 8:46 PM ALIGNING CHECKER) Culture No Growth 06/17/2024 9:31 PM ALIGNING CHECKER [facility] Blood BLOOD SPECIMEN / Unknown Venipuncture / Unknown 06/12/2024 8:46 PM ALIGNING CHECKER 06/12/2024 8:53 PM ALIGNING CHECKER us Abdelrahman Goddard MD LAB - MICRO GENERAL ORDERABLES Final Result Performing Organization Address City/[facility]/ZIP Co de Phone Number [facility] Inf. Diseases Diag. Lab [address] [facility], [address] * XR Chest 2 Views (06/12/2024 7:38 PM ALIGNING CHECKER) Anatomical Region Laterality Modality Chest Computed Radiogr aphy 06/12/2024 7:38 PM ALIGNING CHECKER Impressions 06/12/2024 7:42 PM ALIGNING CHECKER IMPRESSION: A few faint peripheral reticulonodular opacities in the mid and lower lungs again seen. Lungs otherwise clear. No pleural effusion. No pneumothorax. Borderline cardiac enlargement unchanged. Port anterior right chest wall with right IJ central venous catheter tip low SVC. Port anterior left chest wall with left IJ central venous catheter tip low SVC. Narrative 06/12/2024 7:42 PM ALIGNING CHECKER EXAM: XR CHEST 2 VIEWS LOCATION: [facility] DATE: 06/12/2024 INDICATION: CP COMPARISON: 06/03/2024, 05/27/2024 Procedure Note Surendra Hou MD - 06/12/2024 EXAM: XR CHEST 2 VIEWS LOCATION: [facility] DATE: 06/12/2024 INDICATION: CP COMPARISON: 06/03/2024, [...] Adult Type and Screen (06/12/2024 7:17 PM ALIGNING CHECKER) Pathologist [facility] [place] ABO/RH(D) A POS 06/13/2024 9:17 AM ALIGNING CHECKER [facility] Antibody Screen Negative Negative 06/13/2024 9:17 AM ALIGNING CHECKER [facility] Comment:Current antibody scr een is negative. Patient has a history of antibody(ies). A delay in compatible red blood cells may occur. SPECIMEN EXPIRATION DATE [id number] 06/13/2024 9:17 AM ALIGNING CHECKER [facility] Blood BLOOD SPECIMEN / Unknown Venipuncture / Unknown 06/12/2024 7:17 PM ALIGNING CHECKER 06/12/2024 7:32 PM ALIGNING CHECKER Carmen Aviles PA-C LAB - BLOOD BANK TEST ORDER Final Result BLOOD BANK [address] [place] [phone] * (ABNORMAL) RBC and Platelet Morphology (06/12/2024 7:17 PM ALIGNING CHECKER) Pathologist [facility] RBC Morphology Confirmed RBC Indices 06/12/2024 8:57 PM ALIGNING CHECKER [facility] Platelet Assessment Automated Count Confirmed. Platelet morphology is normal. Automated Count Confirmed. Platelet morphology is normal. 06/12/2024 8:57 PM ALIGNING CHECKER [facility] Polychromasia Slight(A) None Seen 06/12/2024 8:57 PM ALIGNING CHECKER [facility] Sickle Cells Moderate(A) None Seen 06/12/2024 8:57 PM ALIGNING CHECKER [facility] Target Cells Moderate(A) None Seen 06/12/2024 8:57 PM ALIGNING CHECKER [facility] Blood BLOOD SPECIMEN / Unknown Venipuncture / Unknown 06/12/2024 7:17 PM ALIGNING CHECKER 06/12/2024 7:32 PM ALIGNING CHECKER us Abdelrahman Goddard MD LAB - BLOOD ORDERABLES Final R esult [facility] [address] [facility], [address] [phone] * (ABNORMAL) CBC with platelets and differential (06/12/2024 7:17 PM ALIGNING CHECKER) Pathologist [facility] WBC Count 12.5(H) 4.0 - 11.0 10e3/uL 06/12/2024 7:54 PM ALIGNING CHECKER [facility] RBC Count 2.44(L) 3.80 - 5.20 10e6/uL 06/12/2024 7:54 PM ALIGNING CHECKER [facility] Hemoglobin 7.5(L) 11.7 - 15.7 g/dL 06/12/2024 7:54 PM ALIGNING CHECKER [facility] Hematocrit 22.2(L) 35.0 - 47.0 % 06/12/2024 7:54 PM ALIGNING CHECKER [facility] MCV 91 78 - 100 fL 06/12/2024 7:54 PM ALIGNING CHECKER [facility] MCH 30.7 26.5 - 33.0 pg 06/12/2024 7:54 PM ALIGNING CHECKER [facility] MCHC 33.8 31.5 - 36.5 g/dL 06/12/2024 7:54 PM ALIGNING CHECKER [facility] RDW 19.5(H) 10.0 - 15.0 % 06/12/2024 7:54 PM ALIGNING CHECKER [facility] Platelet Count 542(H) 150 - 450 10e3/uL 06/12/2024 7:54 PM ALIGNING CHECKER [facility] % Neutrophils 57 % 06/12/2024 7:54 PM ALIGNING CHECKER [facility] % Lymphocytes 24 % 06/12/2024 7:54 PM ALIGNING CHECKER [facility] % Monocytes 16 % 06/12/2024 7:54 PM ALIGNING CHECKER [facility] % Eosinophils 1 % 06/12/2024 7:54 PM ALIGNING CHECKER [facility] % Basophils 1 % 06/12/2024 7:54 PM ALIGNING CHECKER [facility] % Immature Granulocytes 0 % 06/12/2024 7:54 PM ALIGNING CHECKER [facility] NRBCs per 100 WBC 1(H) <1 /100 025 7:54 PM ALIGNING CHECKER [facility] Absolute Neutrophils 7.1 1.6 - 8.3 10e3/uL 06/12/2024 7:54 PM ALIGNING CHECKER [facility] Absolute Lymphocytes 3.0 0.8 - 5.3 10e3/uL 06/12/2024 7:54 PM ALIGNING CHECKER [facility] Absolute Monocytes 2.0(H) 0.0 - 1.3 10e3/uL 06/12/2024 7:54 PM ALIGNING CHECKER [facility] Absolute Eosinophils 0.2 0.0 - 0.7 10e3/uL 06/12/2024 7:54 PM ALIGNING CHECKER [facility] Absolute Basophils 0.2 0.0 - 0.2 10e3/uL 06/12/2024 7:54 PM ALIGNING CHECKER [facility] Absolute Immature Granulocytes 0.1 <=0.4 10e3/uL 06/12/2024 7:54 PM ALIGNING CHECKER [facility] Absolute NRBCs 0.1 10e3/uL 06/12/2024 7:54 PM ALIGNING CHECKER [facility] Blood BLOOD SPECIMEN / Unknown Venipuncture / Unknown 06/12/2024 7:17 PM ALIGNING CHECKER 06/12/2024 7:32 PM ALIGNING CHECKER us Abdelrahman Goddard MD LAB - BLOOD ORDERABLES Final R esult [facility] [address] [facility], [address] [phone] * (ABNORMAL) Blood gas venous (06/12/2024 7:17 PM ALIGNING CHECKER) pH Venous 7.38 7.32 - 7.43 06/12/2024 7:40 PM ALIGNING CHECKER [facility] pCO2 Venous 42 40 - 50 mm Hg 06/12/2024 7:40 PM ALIGNING CHECKER [facility] pO2 Venous 35 25 - 47 mm Hg 06/12/2024 7:40 PM ALIGNING CHECKER [facility] Bicarbonate Venous 24 21 - 28 mmol/L 06/12/2024 7:40 PM ALIGNING CHECKER [facility] Base Excess/Deficit Venous -0.9 -3.0 - 3.0 mmol/L 06/12/2024 7:40 PM ALIGNING CHECKER [facility] FIO2 21 JARET 06/12/2024 7:40 PM ALIGNING CHECKER [facility] Oxyhemoglobin Venous 61(L) 70 - 75 % 06/12/2024 7:40 PM ALIGNING CHECKER [facility] O2 Sat, Venous 63.9(L) 70.0 - 75.0 % 06/12/2024 7:40 PM ALIGNING CHECKER [facility] Blood, venous VENOUS LINE / Unknown Venipuncture / Unknown 06/12/2024 7:17 PM ALIGNING CHECKER 06/12/2024 7:30 PM ALIGNING CHECKER Narrative [facility] - 06/12/2024 7:40 PM ALIGNING CHECKER In healthy individuals, oxyhemoglobin (O2Hb) and oxygen saturation (SO2) are approximately equal. In the presence of dyshemoglobins, oxyhemoglobin can be considerably lower than oxygen saturation. us Abdelrahman Goddard MD LAB - BLOOD ORDERABLES Final R esult [facility] Core Lab [address] [facility], [address] [phone] * Troponin T, High Sensitivity (06/12/2024 7:17 PM ALIGNING CHECKER) Pathologist [facility] [place] Troponin T, High Sensitivity <6 <=14 ng/L 06/12/2024 8:03 PM ALIGNING CHECKER [facility] Comment: Either a High Sensitivity [...] Unknown Venipuncture / Unknown 06/12/2024 7:17 PM ALIGNING CHECKER 06/12/2024 7:32 PM ALIGNING CHECKER us Abdelrahman Goddard MD LAB - BLOOD ORDERABLES Final R esult [facility] [address] [facility], [address] [phone] * (ABNORMAL) Basic metabolic panel (06/12/2024 7:17 PM ALIGNING CHECKER) Sodium 139 135 - 145 mmol/L 06/12/2024 8:03 PM ALIGNING CHECKER [facility] Potassium 4.3 3.4 - 5.3 mmol/L 06/12/2024 8:03 PM ALIGNING CHECKER [facility] Chloride 109(H) 98 - 107 mmol/L 06/12/2024 8:03 PM ALIGNING CHECKER [facility] Carbon Dioxide (CO2) 21(L) 22 - 29 mmol/L 06/12/2024 8:03 PM ALIGNING CHECKER [facility] Anion Gap 9 7 - 15 mmol/L 06/12/2024 8:03 PM ALIGNING CHECKER [facility] Urea Nitrogen 5.9(L) 6.0 - 20.0 mg/dL 06/12/2024 8:03 PM ALIGNING CHECKER [facility] Creatinine 0.61 0.51 - 0.95 mg/dL 06/12/2024 8:03 PM ALIGNING CHECKER [facility] GFR Estimate >90 >60 mL/min/1.7 3m2 06/12/2024 8:03 PM ALIGNING CHECKER [facility] Comment:eGFR calculated 2020 CKD-EPI equation. Calcium 9.4 8.8 - 10.4 mg/dL 06/12/2024 8:03 PM ALIGNING CHECKER [facility] Glucose 97 70 - 99 mg/dL 06/12/2024 8:03 PM ALIGNING CHECKER [facility] Blood BLOOD SPECIMEN / Unknown Venipuncture / Unknown 06/12/2024 7:17 PM ALIGNING CHECKER 06/12/2024 7:32 PM ALIGNING CHECKER us Abdelrahman Goddard MD LAB - BLOOD ORDERABLES Final R esult [facility] [address] [facility], [address] * (ABNORMAL) INR (06/12/2024 7:17 PM ALIGNING CHECKER) INR 1.37(H) 0.85 - 1.15 06/12/2024 7:54 PM ALIGNING CHECKER U LABORATORY Blood BLOOD SPECIMEN / Unknown Venipuncture / Unknown 06/12/2024 7:17 PM ALIGNING CHECKER 06/12/2024 7:32 PM ALIGNING CHECKER Abdelrahman Goddard MD LAB - BLOOD ORDERABLES Final R esult [facility] LAB[facility]ATORY [facility] Core Lab [address] [facility], Room [address] [place] [address] * EKG 12-lead, tracing only (06/12/2024 6:37 PM ALIGNING CHECKER) Systolic Blood Pressure mmHg RADIOLOGY RESULTS Diastolic Blood Pressure mmHg RADIOLOGY RESULTS Ventricular Rate 94 BPM RAD IOLOGY RESULTS Atrial Rate 94 BPM RADIOLOG Y RESULTS SC Interval 146 ms RADIOLOG Y RESULTS QRS Duration 84 ms RADIOLO GY RESULTS QT 346 ms RADIOLOGY RESULTS QTc 432 ms RADIOLOGY RESULTS P Latimer 31 degrees RADIOLOGY RESULTS R AXIS 85 degrees RADIOLOGY RESULTS T Latimer 36 degrees RADIOLOGY RESULTS Interpretation ECG Sinus rhythm Normal ECG Unconfirmed report - interpretation of this ECG is computer generated - see medical record for final interpretation Confirmed by - EMERGENCY ROOM, PHYSICIAN ([id number]), electronic news gathering editor CLAUDIO ASTORGA ([id number]) on 06/13/2024 7:17:59 AM RADIOLOGY RESULTS 06/12/2024 6:37 PM ALIGNING CHECKER 06/13/2024 7:17 AM ALIGNING CHECKER Alex Morton MD ECG ORDERABLES Edited Resul [...] within 2 weeks. $Given 06/15/2024 8:05 AM ALIGNING CHECKER 2 puffs $Given 06/14/2024 7:59 PM ALIGNING CHECKER 2 puffs $Given 06/14/2024 4:39 PM ALIGNING CHECKER 2 puffs albuterol (PROVENTIL HFA/VENTOLIN HFA) inhaler [...] Indications: SepsisIndications:Sepsis $New Bag 06/12/2024 9:31 PM ALIGNING CHECKER 500 mg 250 mL /hr azithromycin (ZITHROMAX) 500 mg in sodium chloride 0.9 % 250 mL intermittent infusion Routine, 500 mg, Intravenous, EVERY 24 HOURS, First dose on Wed06/13/24 at 2100, Indications: Acute chest syndromeIndications:Acute chest syndrome $New Bag 06/13/2024 10:04 PM ALIGNING CHECKER 500 mg azithromycin (ZITHROMAX) tablet 500 mg Routine, 500 mg, Oral, DAILY, First dose on Wed06/14/24 at 1200, Indications: Community Acquired PneumoniaIndications:Community Acquired Pneumonia $Given 06/15/2024 8:05 AM ALIGNING CHECKER 500 mg $Given 06/14/2024 12:38 PM ALIGNING CHECKER 500 mg cefTRIAXone (ROCEPHIN) 1 g vial to attach to NS 100 mL bag for ADULTS or NS 50 mL bag for PEDS STAT, 1 g, Intravenous, ONCE, On Wed06/12/24 at 2005, For 1 dose, Lactated Ringer's solution is not compatible with ceftriaxone for injection, Indications: SepsisIndications:Sepsis $New Bag 06/12/2024 8:39 PM ALIGNING CHECKER 1 g cefTRIAXone (ROCEPHIN) 2 g vial to attach to NS 100 ml bag for ADULTS or NS 50 ml bag for PEDS Routine, 2 g, Intravenous, EVERY 24 HOURS, First dose on Wed06/13/24 at 2000, Lactated Ringer's solution is not compatible with ceftriaxone for injection, Indications: Acute chest syndromeIndications:Acute chest syndrome $New Bag 06/14/2024 8:00 PM ALIGNING CHECKER 2 g $New Bag 06/13/2024 8:16 PM ALIGNING CHECKER 2 g diclofenac (VOLTAREN) 1 % topical gel 2 g 2 g, Topical, 4 TIMES DAILY PRN, inflammatory pain, Starting on Wed06/14/24 at 0912, Apply to area of pain. Use supplied dosing card to measure dose. $Given 06/15/2024 8:10 AM ALIGNING CHECKER 2 g $Given 06/14/2024 12:38 PM ALIGNING CHECKER 2 g diphenhydrAMINE (BENADRYL) capsule 25 mg 25 mg, Oral, EVERY 6 HOURS PRN, itching, Starting on Wed06/12/24 at 2139 $Given 06/14/2024 12:38 PM ALIGNING CHECKER 25 mg $Given 06/13/2024 10:54 PM ALIGNING CHECKER 25 mg $Given 06/13/2024 12:12 PM ALIGNING CHECKER 25 mg diphenhydrAMINE (BENADRYL) injection 25 mg 25 mg, Intravenous, EVERY 6 HOURS PRN, itching, Starting on Wed06/12/24 at 2139 $Given 06/13/2024 5:39 AM ALIGNING CHECKER 25 mg $Given 06/12/2024 10:41 PM ALIGNING CHECKER 25 mg enoxaparin ANTICOAGULANT (LOVENOX) injection 40 mg 40 mg, Subcutaneous, EVERY 24 HOURS, First dose on Wed06/13/24 at 0800, Contact provider if platelet count drops by 50% or more after enoxaparin initiation OR if platelet count falls below 50 x 10e3/uL $Given 06/15/2024 7:59 AM ALIGNING CHECKER 40 mg $Given 06/14/2024 8:29 AM ALIGNING CHECKER 40 mg $Given 06/13/2024 7:49 AM ALIGNING CHECKER 40 mg FLUoxetine (PROzac) capsule 10 mg 10 mg, Oral, DAILY, First dose on Wed06/13/24 at 0800 $Given 06/14/2024 2:37 PM ALIGNING CHECKER 10 mg $Given 06/13/2024 7:50 AM ALIGNING CHECKER 10 mg folic acid (FOLVITE) tablet 1 mg 1 mg, Oral, DAILY, First dose on Wed06/13/24 at 0800 $Given 06/15/2024 8:05 AM ALIGNING CHECKER 1 mg $Given 06/14/2024 8:29 AM ALIGNING CHECKER 1 mg $Given 06/13/2024 7:49 AM ALIGNING CHECKER 1 mg heparin lock flush 10 unit/mL [...] For 1 dose $Given 06/12/2024 7:24 PM ALIGNING CHECKER 2 mg hydromorphone (DILAUDID) injection 2 mg 2 mg, Intravenous, ONCE, On Wed06/12/24 at 2010, For 1 dose $Given 06/12/2024 8:14 PM ALIGNING CHECKER 2 mg hydromorphone (DILAUDID) injection 2 mg 2 mg, Intravenous, EVERY 3 HOURS PRN, moderate pain, IF patient cannot take oral opioid OR IF pain not managed with non-pharmacological, non-opioid, or oral opioid interventions if ordered, Starting on Wed06/12/24 at 2237, May use concomitant with non-opioid analgesics. $Given 06/12/2024 11:31 PM ALIGNING CHECKER 2 mg hydromorphone (DILAUDID) injection 2 mg 2 mg, Intravenous, ONCE, On Wed06/12/24 at 2135, For 1 dose $Given 06/12/2024 9:46 PM ALIGNING CHECKER 2 mg hydromorphone (DILAUDID) injection 2 mg 2 mg, Intravenous, EVERY 2 HOURS PRN, moderate pain, IF patient cannot take oral opioid OR IF pain not managed with non-pharmacological, non-opioid, or oral opioid interventions if ordered, Starting on Wed06/13/24 at 0132, May use concomitant with non-opioid analgesics. $Given 06/14/2024 12:38 PM ALIGNING CHECKER 2 mg $Given 06/14/2024 10:31 AM ALIGNING CHECKER 2 mg $Given 06/14/2024 8:29 AM ALIGNING CHECKER 2 mg hydromorphone (DILAUDID) injection 2 mg 2 mg, Intravenous, EVERY 2 HOURS, First dose (after last modification) on Wed06/14/24 at 1415, May use concomitant with non-opioid analgesics. $Given 06/15/2024 7:58 AM ALIGNING CHECKER 2 mg $Given 06/15/2024 6:01 AM ALIGNING CHECKER 2 mg $Given 06/15/2024 4:11 AM ALIGNING CHECKER 2 mg hydroxyurea (HYDREA) capsule 1,000 mg 1,000 mg, Oral, 2 TIMES DAILY, First dose on Wed06/12/24 at 2330, Indications: sickle cell anemia, Do not crush May require hepatic and/or renal dose or frequency adjustments. See reference link for guidelines.Indications:sickle cell anemia $Given 06/15/2024 8:06 AM ALIGNING CHECKER 1,000 mg $Given 06/14/2024 8:00 PM ALIGNING CHECKER 1,000 mg $Given 06/14/2024 8:30 AM ALIGNING CHECKER 1,000 mg lactated ringers infusion at 75 mL/hr, Intravenous, CONTINUOUS, Starting on Wed06/12/24 at 2240, Until Wed06/13/24 at 0839 Rate/Dose Verify 06/13/2024 7:02 AM ALIGNING CHECKER 75 mL/hr Rate/Dose Verify 06/13/2024 4:52 AM ALIGNING CHECKER 75 mL/h r Rate/Dose Verify 06/13/2024 1:35 AM ALIGNING CHECKER 75 mL/h r Lidocaine (LIDOCARE) 4 % [...] Wed06/12/24 at 2138 $Given 06/13/2024 1:28 AM ALIGNING CHECKER 5 mg menthol (ICY HOT) 5 % [...] Liquid not required. $Given 06/14/2024 9:20 AM ALIGNING CHECKER 4 mg ondansetron (ZOFRAN) injection 4 mg 4 mg, Intravenous, ONCE, Administer over 2-5 Minutes, On Wed06/12/24 at 1850, For 1 dose $Given 06/12/2024 7:24 PM ALIGNING CHECKER 4 mg ondansetron (ZOFRAN) injection 4 mg 4 mg, Intravenous, EVERY 6 HOURS PRN, nausea/vomiting - 1st line, Administer over 2-5 Minutes, Starting on Wed06/12/24 at 2237, Give IF patient unable to tolerate oral medication. This is Step 1 of nausea and vomiting management. If nausea not resolved in 15 minutes, go to Step 2 prochlorperazine (COMPAZINE). $Given 06/15/2024 4:19 AM ALIGNING CHECKER 4 mg senna-docusate (SENOKOT-S/PERICOLACE) 8.6-50 MG per [...] IV dormant line $Given 06/15/2024 6:32 AM ALIGNING CHECKER 3 mLs $Given 06/13/2024 8:37 PM ALIGNING CHECKER 3 mLs $Given 06/13/2024 2:12 PM ALIGNING CHECKER 3 mLs sodium chloride (PF) 0.9% PF flush 3 mL 3 mL, Intracatheter, EVERY 1 MIN PRN, line flush, other, to ensure patency or to lock dormant line, Starting on Wed06/12/24 at 2237 $Given 06/14/2024 2:4 2 PM ALIGNING CHECKER 3 mLs $Given 06/14/2024 8:30 AM ALIGNING CHECKER 3 mLs $Given 06/14/2024 1:32 AM ALIGNING CHECKER 3 mLs sodium chloride 0.9% BOLUS 1,000 mL Intravenous, 1,000 mL, ONCE, at 1,000 mL/hr, Administer over 1 Hours, On Wed06/12/24 at 1850, For 1 dose $New Bag 06/12/2024 7:22 PM ALIGNING CHECKER 1,000 mLs 1000 mL/hr documented in this encounter Active and Recently Administered Medications Times are shown in ALIGNING CHECKER. Scheduled Medication Order 06/13/2024 06/14/2024 06/15/2024 albuterol [...] with non-opioid analgesics. 0143 ($Given - Provider: Sahuna Cuadra RN)0343 ($Given - Provider: Shauna Cuadra [...] 0920 ($Given - Provider: Clay Avina RN) 8555 (See Alternative - Provider: Kathy Levy, SOFIA) [...] stools. documented in this encounter Care Teams Carbon Cutter Relationship Specialty Start Date End Date No Ref-Primary, Physician PCP - General 03/15/24 06/17/24 Mor Ramsey Medical Student 04/03/24 Case Samuel MD [address] [place] [address] [address], [address] [place] [address] Assigned Pediatric Specialist Provider 05/18/24 Juhi Benson, RN Specialty Panel Raiser Operator Hematology & Oncology 05/29/24 documented as of this encounter
--- OUTSIDE RECORDS SUMMARY | 2024-06-25 16:17 | XMS_ITS | Encounter Summary ---
Author Organization [facility] Address [address] [place] [address]. [place] [address] Care Team Providers Care Experimental Mechanic Electrical Name Role Phone Roxy Mor Unavailable Unavailable Case Samuel MD Unavailable [phone] Juhi Benson RN Unavailable Unavailable Veronica Joseph MD Primary Care Provider [phone] Encounter Details Date Type Department Care Team [...] in an overnight halfway, or couch-surfing.) Yes 06/20/2024 Are you worried [...] file Legal Sex Female 8:25 AM BRICK PICKER Gender Identity Not on file Sexual Orientation Not on file documented as of this encounter Plan of Treatment Not on file documented as of this encounter Goals Goal Patient Goal Type Associated Problems Recent Progress Patient-Stated? Author Pain Management General On track( 025 12:40 PM BRICK PICKER) Yes Juhi Benson RN Note: Goal Statement: [...] on filedocumented in this encounter Care Teams Experimental Mechanic Electrical Relationship Specialty Start Date End Date Veronica Joseph MD [address] [place] [address] PCP - General Family Medicine 06/18/24 Mor Ramsey Medical Student 04/03/24 Csae Samuel MD [address] [place] [address] [address], [address] [place] [address] Assigned Pediatric Specialist Provider 05/18/24 Juhi Benson, RN Specialty Emergency Doctor Hematology & Oncology 05/29/24 documented as of this encounter
--- OUTSIDE RECORDS SUMMARY | 2024-06-25 16:17 | XMS_ITS | Encounter Summary ---
Author Organization [facility] Address [address] [place] [address]. [place] [address] Care Team Providers Care Pesticide Chemist Name Role Phone No Ref-Primary, Physician Primary Care Provider Mor Ramesy Unavailable Unavailable Case Samuel MD Unavailable [phone] Juhi Benson RN Unavailable Unavailable Encounter Details [...] on file Legal Sex Female 8:25 AM MACHINE STACKER Gender Identity Not on file Sexual Orientation Not on file documented as of this encounter Plan of Treatment Not on file documented as of this encounter Goals Goal Patient Goal Type Associated Problems Recent Progress Patient-Stated? Author Pain Management General On track( 025 12:40 PM MACHINE STACKER) Yes Juhi Benson RN Note: Goal Statement: [...] on filedocumented in this encounter Care Teams Pesticide Chemist Relationship Specialty Start Date End Date No Ref-Primary, Physician PCP - General 03/15/24 06/17/24 Mor Ramsey Medical Student 04/03/24 Case Samuel MD [address] [place] [address] [address], [address] [place] [address] Assigned Pediatric Specialist Provider 05/18/24 Juhi Benson RN Specialty Business Objects Developer Hematology & Oncology 05/29/24 documented as of this encounter
--- OUTSIDE RECORDS SUMMARY | 2024-06-25 16:17 | XMS_ITS | Encounter Summary ---
Author Organization [facility] Address [address] [place] [address] Care Team Providers Care Wiping Cloth Cutter Name Role Phone No Ref-Primary, Physician Primary Care Provider Mor Ramsey Unavailable Unavailable Case Samuel MD Unavailable [phone] Juhi Benson RN Unavailable Unavailable Reason for Visit * Reason Comments Sickle Cell Pain Crisis Encounter Details Date Type Department Care Team (Late st Contact Info) Description 06/11/2024 9:02 PM CERTIFIED ANESTHESIOLOGIST ASSISTANT - 06/12/2024 1:57 AM [facility] Emergency [facility] Emergency Room [address] [place] [address] Iliana Weber MD [facility] [address] [place] [address] Sickle cell pain crisis (H) Discharge Disposition: [...] on file Legal Sex Female 8:25 AM CERTIFIED ANESTHESIOLOGIST ASSISTANT Gender Identity Not on file Sexual Orientation Not on file documented as of this encounter Last Filed Vital Signs Vital Sign Reading Time Taken Comments Blood Pressure 118/75 06/12/2024 12:45 AM CERTIFIED ANESTHESIOLOGIST ASSISTANT Pulse 91 06/12/2024 12:45 AM CERTIFIED ANESTHESIOLOGIST ASSISTANT Temperature 36.5 C (97.7 F) 06/11/2024 8:58 PM CERTIFIED ANESTHESIOLOGIST ASSISTANT Respiratory Rate 19 06/12/2024 12:45 AM CERTIFIED ANESTHESIOLOGIST ASSISTANT Oxygen Saturation 95% 06/12/2024 12:45 AM CERTIFIED ANESTHESIOLOGIST ASSISTANT Inhaled Oxygen Concentration - - Weight 52.2 kg (115 lb) 06/11/2024 8:58 PM CERTIFIED ANESTHESIOLOGIST ASSISTANT Height 154.9 cm (5' 1) 06/11/2024 8:58 PM CERTIFIED ANESTHESIOLOGIST ASSISTANT Body Mass Index 21.73 06/11/2024 8:58 PM CERTIFIED ANESTHESIOLOGIST ASSISTANT documented in this encounter Discharge Instructions [...] 05/01/2024 naloxone (NARCAN) 4 MG/0.1ML nasal spray [place] 1 spray (4 mg) into one nostril [...] CST Gave handoff report to Niki BLACK IFIED ANESTHESIOLOGIST ASSISTANT * Shane Santos RN - 06/11/2024 10:00 PM CST Pt drove here as seen on security footage. Notified Dr Weber, and ok to proceed with treatment plan as ordered. Pt was advised to arrange a ride home. IFIED ANESTHESIOLOGIST ASSISTANT * Iliana Weber MD - 06/11/2024 9:08 [...] get infusion therapies frequently. Last seen at [facility] 06/11/2024 early this morning about midnight. [...] with other provider:Did you involve another provider (learning and development consultant, MH, pharmacy, etc.)?: No Discharge. No [...] information was obtained from: Patient Use of Emergency Department: N/A Gianna Hernández is a 29 year [...] 11 naloxone (NARCAN) 4 MG/0.1ML nasal spray, [place] 1 spray (4 mg) into one nostril [...] Currently Drug use: Never Social History Narrative Nppj-hd-[id number] mom. Recently moved to [place] from [place], [place]. She is 1 of 9 [...] Social Connections: Socially Integrated (03/28/2024) Received from [facility] Social Connections Do you often feel lonely [...] dry. Normal skin color. Neuro: Speech clear. metalworking specialist grossly intact. Moves all extremities appropriately. Strength [...] Given normal axis. QTcis 453, QRS 78, ND 158. As compared to previous EKG from June 05, 2024 T wave slightly flattened in 3 and aVF but otherwise no significant change. I have independently reviewed and interpreted the EKG(s) documented above. Iliana Weber M.D. Emergency Medicine [facility] EMERGENCY ROOM [address] [facility] [address] Dept: [phone] Iliana Weber MD 06/12/24 0149 IFIED ANESTHESIOLOGIST ASSISTANT * Jennifer Muse RN - 06/11/2024 8:56 [...] WDL WDL Cognitive/Neuro/Behavioral WDL Cognitive/Neuro/Behavioral WDL WDL IFIED ANESTHESIOLOGIST ASSISTANT documented in this encounter Plan of Treatment Not on file documented as of this encounter Goals Goal Patient Goal Type Associated Problems Recent Progress Patient-Stated? Author Pain Management General On track( 025 12:40 PM CERTIFIED ANESTHESIOLOGIST ASSISTANT) Yes Juhi Benson, RN Note: Goal [...] WITH MUSE SJN,SJO,WWH STAT 06/11/2024 9:04 PM CERTIFIED ANESTHESIOLOGIST ASSISTANT documented in this encounter Results * ECG 12-LEAD WITH MUSE (LHE) (06/11/2024 9:04 PM CERTIFIED ANESTHESIOLOGIST ASSISTANT) Systolic Blood Pressure mmHg RADIOLOGY RESULTS Diastolic Blood Pressure mmHg RADIOLOGY RESULTS Ventricular Rate 102 BPM RAD IOLOGY RESULTS Atrial Rate 102 BPM RADIOLOG Y RESULTS ND Interval 158 ms RADIOLOG Y RESULTS QRS Duration 78 ms RADIOLO GY RESULTS QT 348 ms RADIOLOGY RESULTS QTc 453 ms RADIOLOGY RESULTS P Sanders 39 degrees RADIOLOGY RESULTS R AXIS 66 degrees RADIOLOGY RESULTS T Sanders 33 degrees RADIOLOGY RESULTS Interpretation ECG Sinus tachycardia Nonspecific T wave abnormality Abnormal ECG When compared with ECG of 05-Jun-2024 11:40, No significant change was found Confirmed by SEE ED PROVIDER NOTE FOR, ECG INTERPRETATION (4000), video editor SELMA GARRISON ([id number]) on 06/11/2024 9:05:27 PM RADIOLOGY RESULTS 06/11/2024 9:04 PM CERTIFIED ANESTHESIOLOGIST ASSISTANT 06/11/2024 9:05 PM CERTIFIED ANESTHESIOLOGIST ASSISTANT us Deshawn Arredondo MD ECG ORDERABLES Edited [...] For 1 dose $Given 06/12/2024 1:32 AM CERTIFIED ANESTHESIOLOGIST ASSISTANT 25 mg heparin lock flush 100 unit/mL [...] each port lumen $Given 06/12/2024 1:47 AM CERTIFIED ANESTHESIOLOGIST ASSISTANT 5 mLs HYDROmorphone (DILAUDID) injection 2 mg 2 mg, Intravenous, EVERY 1 HOUR PRN, moderate pain, Starting on Wed06/11/24 at 2103, For 3 doses $Given 06/12/2024 12:23 AM CERTIFIED ANESTHESIOLOGIST ASSISTANT 2 mg $Given 06/11/2024 11:16 PM CERTIFIED ANESTHESIOLOGIST ASSISTANT 2 mg $Given 06/11/2024 10:09 PM CERTIFIED ANESTHESIOLOGIST ASSISTANT 2 mg lactated ringers BOLUS 1,000 mL Intravenous, 1,000 mL, ONCE, at 500 mL/hr, Administer over 2 Hours, On 06/11/24 at 2130, For 1 dose $New Bag 06/11/2024 10:03 PM CERTIFIED ANESTHESIOLOGIST ASSISTANT 1,000 mLs 500 mL/hr ondansetron (ZOFRAN) injection 8 mg 8 mg, Intravenous, ONCE, Administer over 2-5 Minutes, On 06/11/24 at 2130, For 1 dose $Given 06/11/2024 10:08 PM CERTIFIED ANESTHESIOLOGIST ASSISTANT 8 mg sodium chloride (PF) 0.9% PF [...] Recently Administered Medications Times are shown in CERTIFIED ANESTHESIOLOGIST ASSISTANT. Scheduled Medication Order 06/10/2024 06/11/2024 06/12/2024 diphenhydrAMINE [...] draw. documented in this encounter Care Teams Wiping Cloth Cutter Relationship Specialty Start Date End Date No Ref-Primary, Physician PCP - General 03/15/24 06/17/24 Mor Ramsey Medical Student 04/03/24 Case Samuel MD [address] [place] [address] [address], [address] [place] [address] Assigned Pediatric Specialist Provider 05/18/24 Juhi Benson, RN Specialty Ranch Hand Livestock Hematology & Oncology 05/29/24 documented as of this encounter
--- OUTSIDE RECORDS SUMMARY | 2024-06-25 16:18 | XMS_ITS | Encounter Summary ---
Author Organization [facility] Address [address] [place] [address] Care Team Providers Care Electrician Crane Maintenance Name Role Phone No Ref-Primary, Physician Primary Care Provider Mor Ramsey Unavailable Unavailable Case Samuel MD Unavailable [phone] Juhi Benson RN Unavailable Unavailable Reason for Visit * Reason Onset Date Comments Refill Request 06/15/2024 Encounter Details Date Type Department Care Team (Late st Contact Info) Description 06/15/[address] [place] [address] Case Samuel MD [address] [place] [address] [address], [address] [place], [place] [address] Refill Request Social History Tobacco Use Types [...] on file Legal Sex Female 8:25 AM COLD MILL SUPERVISOR Gender Identity Not on file Sexual [...] by whom: Dr. Case Samuel on 06/07/24 PRACTICE SPECIALIST Reviewed: no access Send to provider: Dr. Samuel and SOFIA ReynagaCC. MILL SUPERVISOR documented in this encounter Plan of Treatment Not on file documented as of this encounter Goals Goal Patient Goal Type Associated Problems Recent Progress Patient-Stated? Author Pain Management General On track( 025 12:40 PM COLD MILL SUPERVISOR) Yes Juhi Benson, RN Note: Goal [...] crisis documented in this encounter Care Teams Electrician Crane Maintenance Relationship Specialty Start Date End Date No Ref-Primary, Physician PCP - General 03/15/24 06/17/24 Mor Ramsey Medical Student 04/03/24 Case Samuel MD [address] [place] [address] [address], [address] [place] [address] Assigned Pediatric Specialist Provider 05/18/24 Juhi Benson, RN Specialty Internal Corrosion Specialist Hematology & Oncology 05/29/24 documented as of this encounter
--- OUTSIDE RECORDS SUMMARY | 2024-06-25 16:18 | XMS_ITS ---
Author Organization [place] Address [address] [place] [address] Care Team Providers Care Cmm Programmer Name Role Phone Roxy Mor Unavailable Unavailable Case Samuel MD Unavailable [phone] Juhi Benson RN Unavailable Unavailable Veronica Joseph MD Primary Care Provider [phone] Transitional Care Management Status:Enrolled (Active) Start date:06/16/2024 Enrollment date:06/16/2024 Continued Care and Services Coordination
--- OUTSIDE RECORDS SUMMARY | 2024-06-25 16:18 | XMS_ITS | Encounter Summary ---
Author Organization [facility] Address [address] [place] [address] Care Team Providers Care Defective Cigarette Slitter Name Role Phone RoxyElvirac Unavailable Unavailable Case Samuel MD Unavailable [phone] Juhi Benson RN Unavailable Unavailable Veronica Joseph MD Primary Care Provider [phone] Reason for Visit * Reason Comments Sickle Cell Pain Crisis Pt reports pain in her back and b/l lower extremities. Encounter Details Date Type Department Care Team (Late st Contact Info) Description 06/24/2024 9:28 AM LABORATORY SECRETARY - 06/24/2024 1:05 PM LABORATORY SECRETARY Emergency [facility] Emergency Department [address] [place] [phone] Richar Mahajan MD [address] [place] [phone] Sickle cell disease with crisis (H) Discharge [...] on file Legal Sex Female 8:25 AM LABORATORY SECRETARY Gender Identity Not on file Sexual Orientation Not on file documented as of this encounter Last Filed Vital Signs Vital Sign Reading Time Taken Comments Blood Pressure 111/67 06/24/2024 11:56 AM LABORATORY SECRETARY Pulse 101 06/24/2024 12:11 PM LABORATORY SECRETARY Temperature 36.9 C (98.4 F) 06/24/2024 9:26 AM LABORATORY SECRETARY Respiratory Rate 16 06/24/2024 9:26 AM LABORATORY SECRETARY Oxygen Saturation 100% 06/24/2024 12:11 PM LABORATORY SECRETARY Inhaled Oxygen Concentration - - Weight 52.2 kg (115 lb) 06/24/2024 9:26 AM LABORATORY SECRETARY Height 154.9 cm (5' 1) 06/24/2024 9:26 AM LABORATORY SECRETARY Body Mass Index 21.73 06/24/2024 9:26 AM LABORATORY SECRETARY documented in this encounter Discharge Instructions * Discharge Instructions* Richar Mahajan MD - 06/24/2024 12:57 PM LABORATORY SECRETARY Home. Continue home care. Follow up with [...] Negative Ketones Urine Negative Negative mg/dL Specific [place] Urine 1.009 1.003 - 1.035 Blood Urine [...] Status --------- ------ CBC with platelets and d...[[id number]] Abnormal Final result Please view results for these tests on the individual orders. RATORY SECRETARY * Attachments The following attachments cannot be sent through Care Everywhere. * Sickle Cell Crisis (Jamaican) documented in this encounter Medications at Time [...] 05/01/2024 naloxone (NARCAN) 4 MG/0.1ML nasal spray [place] 1 spray (4 mg) into one nostril [...] extremities. Triage Assessment (Adult) Row Name 06/24/24 0969 Triage Assessment Airway WDL WDL Respiratory WDL Respiratory WDL WDL Skin Circulation/Temperature WDL Skin Circulation/Temperature WDL WDL Cardiac WDL Cardiac WDL WDL Peripheral/Neurovascular WDL Peripheral Neurovascular WDL WDL Cognitive/Neuro/Behavioral WDL Cognitive/Neuro/Behavioral WDL WDL RATORY SECRETARY * Richar Mahajan MD - 06/24/2024 9:16 AM CST Images from the original note were not included. [facility] ([facility]) 06/24/24 ED PROVIDER NOTE History Chief Complaint [...] Negative Ketones Urine Negative Negative mg/dL Specific [place] Urine 1.009 1.003 - 1.035 Blood Urine [...] Status --------- ------ CBC with platelets and d...[[id number]] Abnormal Final result Please view results for [...] Bilirubin Urine Negative Ketones Urine Negative Specific [place] Urine 1.009 Blood Urine Negative pH Urine [...] Thelma Haines, am serving as a trained bilingual medical assistant to document services personally performed by Richar Mahajan MD based on the provider's statements to me on June 24, 2024. This document has been checked and approved by the attending provider. I, Richar Mahajan MD, was physically present and have reviewed and verified the accuracy of thisnote documented by Thelma Haines, bilingual medical assistant. Richar Mahajan MD [facility] 06/24/2024 This note was created at least in part by the use of [employer] voice dictation system. Inadvertent typographical errors may still exist. Richar Mahajan MD. Patient evaluated in the emergency department during the COVID-19 pandemic period. Careful attention to patients safety was addressed throughout the evaluation. Evaluation and treatment management was initiated with disposition made efficiently and appropriate as possible to minimize any risk of potential exposure to patient during this evaluation. Richar Mahajan MD 06/24/242108 RATORY SECRETARY documented in this encounter Plan of Treatment Not on file documented as of this encounter Goals Goal Patient Goal Type Associated Problems Recent Progress Patient-Stated? Author Pain Management General On track( 025 12:40 PM LABORATORY SECRETARY) Yes Juhi Benson, SOFIA Note: Goal Statement: [...] REFLEX TO CULTURE STAT 06/24/2024 10:15 AM LABORATORY SECRETARY CBC WITH PLATELETS AND DIFFERENTIAL STAT 06/24/2024 10:11 AM LABORATORY SECRETARY CBC WITH PLATELETS & DIFFERENTIAL STAT 06/24/2024 10:11 AM LABORATORY SECRETARY RETICULOCYTE COUNT STAT 06/24/2024 10 :11 AM LABORATORY SECRETARY INR STAT 06/24/2024 10:11 AM LABORATORY SECRETARY PARTIAL THROMBOPLASTIN TIME STAT 06/24/2024 10:11 AM LABORATORY SECRETARY MAGNESIUM STAT 06/24/2024 10:11 AM LABORATORY SECRETARY HCG QUALITATIVE STAT 06/24/2024 10:11 AM LABORATORY SECRETARY COMPREHENSIVE METABOLIC PANEL STAT 06/24/2024 10:11 AM LABORATORY SECRETARY documented in this encounter Results * (ABNORMAL) UA with Microscopic reflex to Culture (06/24/2024 10:15 AM LABORATORY SECRETARY) Color Urine Light Yellow Colorless, Straw, Light Yellow, Yellow 06/24/2024 10:25 AM LABORATORY SECRETARY [facility] Appearance Urine Clear Clear 06/25/19 10:25 AM LABORATORY SECRETARY [facility] Glucose Urine Negative Negative mg/dL 06/24/2024 10:25 AM LABORATORY SECRETARY [facility] Bilirubin Urine Negative Negative 10:25 AM LABORATORY SECRETARY [facility] Ketones Urine Negative Negative mg/dL 06/24/2024 10:25 AM LABORATORY SECRETARY [facility] Specific [place] Urine 1.009 1.003 - 1.035 06/24/2024 10:25 AM LABORATORY SECRETARY [facility] Blood Urine Negative Negative 06/24/2024 10:25 AM LABORATORY SECRETARY [facility] pH Urine 7.5(H) 5.0 - 7.0 06/24/2024 10:25 AM LABORATORY SECRETARY [facility] Protein Albumin Urine Negative Negative mg/dL 06/24/2024 10:25 AM LABORATORY SECRETARY [facility] Urobilinogen Urine Normal Normal, 2.0 mg/dL 06/24/2024 10:25 AM LABORATORY SECRETARY [facility] Nitrite Urine Negative Negative 06/24/2024 10:25 AM LABORATORY SECRETARY [facility] Leukocyte Esterase Urine Negative Negative 06/24/2024 10:25 AM LABORATORY SECRETARY [facility] RBC Urine <1 <=2 /HPF 06/24/2024 10:25 AM LABORATORY SECRETARY [facility] WBC Urine <1 <=5 /HPF 06/24/2024 10:25 AM LABORATORY SECRETARY [facility] Squamous Epithelials Urine 11(H) <=1 /HPF 06/24/2024 10:25 AM LABORATORY SECRETARY [facility] Hyaline Casts Urine 1 <=2 /LPF 06/24/2024 10:25 AM LABORATORY SECRETARY [facility] Urine MID-STREAM URINE SPECIMEN / Unknown Non-blood Collection / Unknown 06/24/2024 10:15 AM LABORATORY SECRETARY 06/24/2024 10:20 AM LABORATORY SECRETARY Narrative [facility] - 06/24/2024 10:25 AM LABORATORY SECRETARY Urine Culture not indicated us Richar Mahajan MD LAB - URINE ORDERABLES Liss bola Result [facility] [address] [place] [address], [address] [place] [phone], [facility] * (ABNORMAL) CBC with platelets and differential (06/24/2024 10:11 AM LABORATORY SECRETARY) WBC Count 7.8 4.0 - 11.0 10e3/uL 06/24/2024 10:28 AM LABORATORY SECRETARY [facility] RBC Count 2.49(L) 3.80 - 5.20 10e6/uL 06/24/2024 10:28 AM LABORATORY SECRETARY [facility] Hemoglobin 7.9(L) 11.7 - 15.7 g/dL 06/24/2024 10:28 AM LABORATORY SECRETARY [facility] Hematocrit 24.8(L) 35.0 - 47.0 % 06/24/2024 10:28 AM LABORATORY SECRETARY [facility] MCV 100 78 - 100 fL 06/24/2024 10:28 AM LABORATORY SECRETARY [facility] MCH 31.7 26.5 - 33.0 pg 06/24/2024 10:28 AM LABORATORY SECRETARY [facility] MCHC 31.9 31.5 - 36.5 g/dL 06/24/2024 10:28 AM LABORATORY SECRETARY [facility] RDW 19.0(H) 10.0 - 15.0 % 06/24/2024 10:28 AM LABORATORY SECRETARY [facility] Platelet Count 482(H) 150 - 450 10e3/uL 06/24/2024 10:28 AM LABORATORY SECRETARY [facility] % Neutrophils 61 % 06/24/2024 10:28 AM LABORATORY SECRETARY [facility] % Lymphocytes 26 % 06/24/2024 10:28 AM LABORATORY SECRETARY [facility] % Monocytes 9 % 06/24/2024 10:28 AM LABORATORY SECRETARY [facility] % Eosinophils 1 % 06/24/2024 10:28 AM LABORATORY SECRETARY [facility] % Basophils 2 % 06/24/2024 10:28 AM LABORATORY SECRETARY [facility] % Immature Granulocytes 1 % 06/24/2024 10:28 AM LABORATORY SECRETARY [facility] NRBCs per 100 WBC 5(H) <1 /100 03/01/2 025 10:28 AM LABORATORY SECRETARY [facility] Absolute Neutrophils 4.8 1.6 - 8.3 10e3/uL 06/24/2024 10:28 AM LABORATORY SECRETARY [facility] Absolute Lymphocytes 2.1 0.8 - 5.3 10e3/uL 06/24/2024 10:28 AM LABORATORY SECRETARY [facility] Absolute Monocytes 0.7 0.0 - 1.3 10e3/uL 06/24/2024 10:28 AM LABORATORY SECRETARY [facility] Absolute Eosinophils 0.1 0.0 - 0.7 10e3/uL 06/24/2024 10:28 AM LABORATORY SECRETARY [facility] Absolute Basophils 0.1 0.0 - 0.2 10e3/uL 06/24/2024 10:28 AM LABORATORY SECRETARY [facility] Absolute Immature Granulocytes 0.1 <=0.4 10e3/uL 06/24/2024 10:28 AM LABORATORY SECRETARY [facility] Absolute NRBCs 0.4 10e3/uL 06/24/2024 10:28 AM LABORATORY SECRETARY [facility] Blood BLOOD SPECIMEN / Unknown Venipuncture / Unknown 06/24/2024 10:11 AM LABORATORY SECRETARY 06/24/2024 10:22 AM LABORATORY SECRETARY Richar Mahajan MD LAB - BLOOD ORDERABLES Liss l Result [facility] [address] [place] [address], [address] [phone] * (ABNORMAL) Reticulocyte count (06/24/2024 10:11 AM LABORATORY SECRETARY) Pathologist [facility] % Reticulocyte 11.2(H) 0.5 - 2.0 % 06/24/2024 10:28 AM LABORATORY SECRETARY [facility] Absolute Reticulocyte 0.280(H) 0.025 - 0.095 10e6/uL 06/24/2024 10:28 AM LABORATORY SECRETARY [facility] Blood BLOOD SPECIMEN / Unknown Venipuncture / Unknown 06/24/2024 10:11 AM LABORATORY SECRETARY 06/24/2024 10:22 AM LABORATORY SECRETARY Richar Mahajan MD LAB - BLOOD ORDERABLES Liss l Result [facility] [address] [facility], [address] * HCG qualitative Blood (06/24/2024 10:11 AM LABORATORY SECRETARY) Pathologist [facility] hCG Serum Qualitative Negative Negative JARET 06/24/2024 10:33 AM LABORATORY SECRETARY [facility] Comment:This test is for scr eening purposes. Results should be interpreted along with the clinical picture. Confirmation testing is available if warranted by ordering [id number], HCG Quantitative . Blood BLOOD SPECIMEN / Unknown Venipuncture / Unknown 06/24/2024 10:11 AM LABORATORY SECRETARY 06/24/2024 10:20 AM LABORATORY SECRETARY Richar Mahajan MD LAB - BLOOD ORDERABLES Liss l Result Performing Organization Address [facility] Co de Phone Number U LABORATORY [facility] [address] [facility], [address] * Magnesium (06/24/2024 10:11 AM LABORATORY SECRETARY) Pathologist [facility] Magnesium 2.1 1.7 - 2.3 mg/dL 06/24/2024 10:51 AM LABORATORY SECRETARY [facility] Blood BLOOD SPECIMEN / Unknown Venipuncture / Unknown 06/24/2024 10:11 AM LABORATORY SECRETARY 06/24/2024 10:21 AM LABORATORY SECRETARY Richar Mahajan MD LAB - BLOOD ORDERABLES Liss l Result Performing Organization Address City/[facility]/ZIP Co de Phone Number [facility] [address] [facility], [address] * (ABNORMAL) Comprehensive metabolic panel (06/24/2024 10:11 AM LABORATORY SECRETARY) Pathologist [facility] Sodium 138 135 - 145 mmol/L 06/24/2024 10:51 AM LABORATORY SECRETARY [facility] Potassium 4.3 3.4 - 5.3 mmol/L 06/24/2024 10:51 AM LABORATORY SECRETARY [facility] Carbon Dioxide (CO2) 20(L) 22 - 29 mmol/L 06/24/2024 10:51 AM LABORATORY SECRETARY [facility] Anion Gap 10 7 - 15 mmol/L 06/24/2024 10:51 AM LABORATORY SECRETARY [facility] Urea Nitrogen 9.9 6.0 - 20.0 mg/dL 06/24/2024 10:51 AM LABORATORY SECRETARY [facility] Creatinine 0.62 0.51 - 0.95 mg/dL 06/24/2024 10:51 AM LABORATORY SECRETARY [facility] GFR Estimate >90 >60 mL/min/1.7 3m2 06/24/2024 10:51 AM LABORATORY SECRETARY [facility] Comment:eGFR calculated 2020 CKD-EPI equation. Calcium 8.7(L) 8.8 - 10.4 mg/dL 06/24/2024 10:51 AM LABORATORY SECRETARY [facility] Chloride 108(H) 98 - 107 mmol/L 06/24/2024 10:51 AM LABORATORY SECRETARY [facility] Glucose 98 70 - 99 mg/dL 06/24/2024 10:51 AM LABORATORY SECRETARY [facility] Alkaline Phosphatase 119 40 - 150 U/L 06/24/2024 10:51 AM LABORATORY SECRETARY [facility] AST 57(H) 0 - 45 U/L 06/24/2024 10:51 AM LABORATORY SECRETARY [facility] ALT 53(H) 0 - 50 U/L 06/24/2024 10:51 AM LABORATORY SECRETARY [facility] Protein Total 7.4 6.4 - 8.3 g/dL 06/24/2024 10:51 AM LABORATORY SECRETARY [facility] Albumin 4.0 3.5 - 5.2 g/dL 06/24/2024 10:51 AM LABORATORY SECRETARY [facility] Bilirubin Total 1.1 <=1.2 mg/dL 06/24/2024 10:51 AM LABORATORY SECRETARY [facility] Blood BLOOD SPECIMEN / Unknown Venipuncture / Unknown 06/24/2024 10:11 AM LABORATORY SECRETARY 06/24/2024 10:21 AM LABORATORY SECRETARY Richar Mahajan MD LAB - BLOOD ORDERABLES [address]iss [address]aza Result [facility] [address] [facility], [address] [place] [phone] * (ABNORMAL) INR (06/24/2024 10:11 AM LABORATORY SECRETARY) INR 1.45(H) 0.85 - 1.15 06/24/2024 10:54 AM LABORATORY SECRETARY [facility] Blood BLOOD SPECIMEN / Unknown Venipuncture / Unknown 06/24/2024 10:11 AM LABORATORY SECRETARY 06/24/2024 10:21 AM LABORATORY SECRETARY Richar Mahajan MD LAB - BLOOD ORDERABLES Liss l Result [facility] [address] [facility], [address] * Partial thromboplastin time (06/24/2024 10:11 AM LABORATORY SECRETARY) aPTT 32 22 - 38 Seconds 06/24/2024 10:55 AM LABORATORY SECRETARY [facility] Blood BLOOD SPECIMEN / Unknown Venipuncture / Unknown 06/24/2024 10:11 AM LABORATORY SECRETARY 06/24/2024 10:21 AM LABORATORY SECRETARY Richar Mahajan MD LAB - BLOOD ORDERABLES Liss l Result LABORATORY [facility] [address] [facility], [address] [place] [address] documented in this encounter Visit Diagnoses Diagnosis Sickle cell disease with crisis (H) Hb-SS disease with crisis documented in this encounter Administered Medications Inactive Administered Medications - up to 3 most recent administrations Medication Order MAR Action Action Date Dose Rate Site diphenhydrAMINE (BENADRYL) capsule 50 mg 50 mg, Oral, ONCE, On 06/24/24 at 0935, For 1 dose $Given 06/24/2024 10:20 AM LABORATORY SECRETARY 50 mg hydromorphone (DILAUDID) injection 2 mg 2 mg, Intravenous, EVERY 1 HOUR PRN, severe pain, Starting on 06/24/24 at 0933, For 3 doses $Given 06/24/2024 12:41 PM LABORATORY SECRETARY 2 mg $Given 06/24/2024 11:21 AM LABORATORY SECRETARY 2 mg $Given 06/24/2024 10:19 AM LABORATORY SECRETARY 2 mg lactated ringers BOLUS 1,000 mL Intravenous, 1,000 mL, ONCE, at 500 mL/hr, Administer over 2 Hours, On 06/24/24 at 0935, For 1 dose $New Bag 06/24/2024 10:20 AM LABORATORY SECRETARY 1,000 mLs 500 mL/hr lidocaine (LMX4) cream [...] For 1 dose $Given 06/24/2024 10:19 AM LABORATORY SECRETARY 8 mg sodium chloride (PF) 0.9% PF flush 3 mL 3 mL, Intracatheter, EVERY 8 HOURS, First dose on 06/24/24 at 0935, to lock peripheral IV dormant line $Given 06/24/2024 10:14 AM LABORATORY SECRETARY 3 mLs sodium chloride (PF) 0.9% PF flush 3 mL 3 mL, Intracatheter, EVERY 1 MIN PRN, line flush, other, to ensure patency or to lock dormant line, Starting on 06/24/24 at 0930 documented in this encounter Active and Recently Administered Medications Times are shown in LABORATORY SECRETARY. Scheduled Medication Order 06/22/2024 06/23/2024 06/24/2024 diphenhydrAMINE [...] 0930 documented in this encounter Care Teams Defective Cigarette Slitter Relationship Specialty Start Date End Date Veronica Joseph MD [address] [place] [address] PCP - General Family Medicine 06/18/24 Mor Ramsey Medical Student 04/03/24 Case Samuel MD [address] [place] [address], [address] [place] [address] Assigned Pediatric Specialist Provider 05/18/24 Juhi Benson, RN Specialty [employer]der [facility] 05/29/24 documented as of this encounter
--- OUTSIDE RECORDS SUMMARY | 2024-06-25 16:18 | XMS_ITS | Clinical Summary ---
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 OPERATOR/PA: Lizzie Genotype: SS Acute Pain Crisis Treatment: [...] Department Care Team Description 06/24/2024 9:28 AM SKILLED NURSING CASE MANAGER - 06/24/2024 1:05 PM SKILLED NURSING CASE MANAGER Emergency [facility] Emergency Department [address] [place] [phone] Richar Mahajan MD Sickle cell disease with crisis (H) Discharge Disposition: Home or Self Care 06/24/2024 Travel 06/23/2024 6:03 PM SKILLED NURSING CASE MANAGER - 06/23/2024 9:47 PM [facility] Emergency [facility] Emergency Department [address] [place] [phone] Dayna Crane MD Sickle cell disease with crisis (H) Discharge Disposition: Home or Self Care 06/23/2024 Travel 06/22/2024 5:23 PM SKILLED NURSING CASE MANAGER - 06/22/2024 10:02 PM SKILLED NURSING CASE MANAGER Emergency [facility] Emergency Department [address] [place] [phone] Lynne Varner MD Sickle cell anemia with crisis (H) Discharge Disposition: Home or Self Care 06/22/2024 Travel 06/16/2024 4:46 PM SKILLED NURSING CASE MANAGER - 06/20/2024 11:00 AM SKILLED NURSING CASE MANAGER Hospital Encounter [facility] 7C Med Surg [address] [place] [phone] Abimael Schofield MD Pal, Suman, MD Duffy, Briar, MD Sickle cell pain crisis (H) Discharge Disposition: Home or Self Care 06/16/2024 Travel 06/15/[address] [phone] Case Samuel MD Refill Request 06/12/2024 6:38 PM SKILLED NURSING CASE MANAGER - 06/15/2024 10:48 AM SKILLED NURSING CASE MANAGER Hospital Encounter [facility] Emergency Department [address] [place] [phone] Abdelrahman Goddard MD Beacom, Evan, DO Duffy, Briar, MD 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); Acute chest pain; Sickle cell pain crisis (H); Pneumonia of right lower lobe due to infectious organism Discharge Disposition: Home or Self Care 06/12/2024 Travel 06/11/2024 9:02 PM SKILLED NURSING CASE MANAGER - 06/12/2024 1:57 AM SKILLED NURSING CASE MANAGER Emergency [facility] Emergency Room [address] [place] [phone] Iliana Weber MD Sickle cell pain crisis (H) Discharge Disposition: Home or Self Care 06/11/2024 Travel 06/09/2024 11:30 AM SKILLED NURSING CASE MANAGER Infusion Therapy Visit [facility] [address] [place] [phone] Case Samuel MD Sickle cell pain crisis (H) (Primary Dx) 06/09/2024 Travel 06/07/2024 1:30 PM SKILLED NURSING CASE MANAGER Infusion Therapy Visit [facility] [address] [phone] Case Samuel MD Fever (Primary Dx); Sickle cell pain crisis (H) 06/07/2024 10:00 AM SKILLED NURSING CASE MANAGER - 06/07/2024 10:45 AM SKILLED NURSING CASE MANAGER Emergency [facility] Emergency Room [address] [place] [phone] Bernabe Farley MD Chest pain, unspecified type; Fever, unspecified fever cause; Left against medical advice Discharge Disposition: Home or Self Care 06/07/2024 Travel 06/06/2024 9:41 AM SKILLED NURSING CASE MANAGER - 06/06/2024 1:29 PM [facility] Emergency [facility] Emergency Room [address] [place] [phone] Marilia Summers MD Sickle cell pain crisis (H) Discharge Disposition: Home or Self Care 06/05/2024 11:41 AM SKILLED NURSING CASE MANAGER - 06/05/2024 3:28 PM [facility] Emergency [facility] Emergency Room [address] [place] [phone] Stiven Madsen MD Palm, Steven J, MD Sickle cell pain crisis (H) Discharge Disposition: Home or Self Care 06/05/2024 Travel 06/05/2024 [facility] [address] [place] [phone] Case Samuel MD Refill Request 06/03/2024 3:22 PM SKILLED NURSING CASE MANAGER - 06/03/2024 5:30 PM [facility] Emergency [facility] Emergency Room [address] [place] [phone] Jennifer Bell MD Sickle cell pain crisis (H) Discharge Disposition: Home or Self Care 06/03/2024 Travel 06/01/2024 11:41 PM SKILLED NURSING CASE MANAGER - 06/02/2024 2:35 AM [facility] Emergency [facility] Emergency Room [address] [place] [phone] Noel Pinzon MD Sickle cell pain crisis (H) Discharge Disposition: Home or Self Care 06/01/2024 Travel 05/31/2024 9:56 PM SKILLED NURSING CASE MANAGER - 06/01/2024 12:46 AM [facility] Emergency [facility] Emergency Room [address] [place] [phone] Carley Riggins MD Sickle cell pain crisis (H) Discharge Disposition: Home or Self Care 05/31/2024 Travel 05/30/2024 8:00 AM SKILLED NURSING CASE MANAGER Infusion Therapy Visit [facility] [address] [phone] Case Samuel MD 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); History of transfusion; Sickle cell pain crisis (H) 05/29/2024 11:30 AM SKILLED NURSING CASE MANAGER Oncology Visit [facility] Cancer [address] [phone] Csae Samuel MD Severe episode of recurrent major depressive disorder, 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); History of transfusion; Sickle cell pain crisis (H); 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) 05/29/2024 Orders Only [facility] Cancer [address] [phone] Juhi Benson RN Sickle cell pain crisis (H) (Primary Dx); 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) 05/29/2024 Travel 05/28/2024 11:56 PM SKILLED NURSING CASE MANAGER - 05/29/2024 3:54 AM SKILLED NURSING CASE MANAGER Emergency [facility] Emergency Room [address] [place] [phone] Lenin Smith MD Sickle cell disease with crisis (H) Discharge Disposition: Home or Self Care 05/28/2024 Travel 05/27/2024 11:58 AM SKILLED NURSING CASE MANAGER - 05/27/2024 6:07 PM SKILLED NURSING CASE MANAGER Emergency [facility] Emergency Room [address] [place] [phone] Blas Mcclellan MD Ohl, Christine E, DO Sickle cell disease with crisis (H) Discharge Disposition: Home or Self Care 05/27/2024 Travel 05/25/2024 10:53 AM SKILLED NURSING CASE MANAGER - 05/25/2024 4:00 PM SKILLED NURSING CASE MANAGER Hospital Encounter [facility] Interventional Radiology [address] [place] [phone] Jaswinder Cooper MD 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) Discharge Disposition: Home or Self Care 05/23/2024 9:03 PM SKILLED NURSING CASE MANAGER - 05/23/2024 11:37 PM SKILLED NURSING CASE MANAGER Emergency [facility] Emergency Room [address] [place] [phone] Marilia Summers MD Sickle cell pain crisis (H); Leukocytosis, unspecified type; Left-sided chest wall pain Discharge Disposition: Home or Self Care 05/23/2024 Travel 05/22/2024 3:27 PM SKILLED NURSING CASE MANAGER - 05/22/2024 6:55 PM SKILLED NURSING CASE MANAGER Emergency [facility] Emergency Room [address] [place] [phone] Bernabe Farley MD Sickle cell pain crisis (H) Discharge Disposition: Home or Self Care 05/22/2024 MyC Refill [facility] [address] [place] [phone] Case Samuel MD Refill Request 05/22/2024 Travel 05/22/2024 MyC Medical Advice [facility] Interventional Radiology [address] [place] [phone] Yadi Mahan RN 05/20/2024 7:30 AM SKILLED NURSING CASE MANAGER - 05/20/2024 11:15 AM [facility] Emergency [facility] Emergency Room [address] [place] [phone] Stiven Madsen MD Sickle cell pain crisis (H) Discharge Disposition: Home or Self Care 05/20/2024 Travel 05/19/2024 2:10 AM SKILLED NURSING CASE MANAGER - 05/19/2024 6:06 AM [facility] Emergency [facility] Emergency Room [address] [place] [phone] Marilia Summers MD Sickle cell disease with crisis (H) Discharge Disposition: Home or Self Care 05/19/2024 Travel 05/16/2024 9:41 PM SKILLED NURSING CASE MANAGER - 05/17/2024 12:53 AM SKILLED NURSING CASE MANAGER Emergency [facility] Emergency Room [address] [place] [phone] Guille Davis DO Sickle cell pain crisis (H) Discharge Disposition: Home or Self Care 05/16/2024 Travel 05/14/2024 10:07 PM SKILLED NURSING CASE MANAGER - 05/15/2024 12:14 AM SKILLED NURSING CASE MANAGER Emergency [facility] Emergency Room [address] [place] [phone] Marguerite Ponce PA-C Sickle cell pain crisis (H) Discharge Disposition: Home or Self Care 05/14/2024 Travel 05/13/2024 3:56 PM SKILLED NURSING CASE MANAGER - 05/13/2024 7:56 PM [facility] Emergency [facility] Emergency Room [address] [place] [phone] Shaheen Unger MD Sickle cell pain crisis (H) Discharge Disposition: Home or Self Care 05/13/2024 Travel 05/08/2024 3:10 PM SKILLED NURSING CASE MANAGER - 05/08/2024 7:54 PM SKILLED NURSING CASE MANAGER Emergency [facility] Emergency Room [address] [place] [phone] Polly Alcaraz MD Sickle cell pain crisis (H) Discharge Disposition: Home or Self Care 05/08/2024 Travel 05/08/2024 MyC Refill [facility] [address] [place] [phone] Case Samuel MD Refill Request 05/06/2024 6:34 PM SKILLED NURSING CASE MANAGER - 05/06/2024 10:33 PM [facility] Emergency [facility] Emergency Room [address] [place] [phone] Noel Pinzon MD Sickle cell pain crisis (H) Discharge Disposition: Home or Self Care 05/06/2024 Travel 05/05/2024 11:10 AM SKILLED NURSING CASE MANAGER - 05/05/2024 2:25 PM SKILLED NURSING CASE MANAGER Emergency [facility] Emergency Room [address] [place] [phone] Star Gifford MD Sickle cell pain crisis (H) Discharge Disposition: Home or Self Care 05/05/2024 Travel 05/02/2024 8:23 AM SKILLED NURSING CASE MANAGER - 05/02/2024 8:54 AM SKILLED NURSING CASE MANAGER Emergency M [facility] Emergency Department [address] [place] [phone] Andres Tejada MD Discharge Disposition: Left Without Being Seen 05/02/2024 Telephone [facility] [place] [phone] [facility] [address] [place] [phone] No Ref-Primary, Physician Call to schedule (Ed follow up) 05/02/2024 Travel 05/01/2024 11:00 AM SKILLED NURSING CASE MANAGER Oncology Visit [facility] Cancer [address] [phone] Case Samuel MD History of transfusion (Primary Dx); 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); Gallstones; Avascular necrosis of bone of left hip (H); 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, with sickle cell retinopathy, unspecified laterality, unspecified whether proliferative (H); Sickle cell pain crisis (H) 05/01/2024 Orders Only [facility] [address] [place] [phone] Juhi Benson RN 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) 05/01/2024 Travel 04/28/2024 12:41 AM SKILLED NURSING CASE MANAGER - 04/28/2024 3:59 AM SKILLED NURSING CASE MANAGER Emergency [facility] Emergency Room [address] [place] [phone] Sandy Joya MD Sickle cell pain crisis (H) Discharge Disposition: Home or Self Care 04/28/2024 Travel 04/26/2024 11:53 PM SKILLED NURSING CASE MANAGER - 04/27/2024 2:14 AM SKILLED NURSING CASE MANAGER Emergency [facility] Emergency Room [address] [place] [phone] Sandy Joya MD Sickle cell pain crisis (H) Discharge Disposition: Home or Self Care 04/26/2024 Travel 04/19/2024 1:48 AM SKILLED NURSING CASE MANAGER - 04/19/2024 4:28 AM SKILLED NURSING CASE MANAGER Emergency [facility] Emergency Room [address] [place] [phone] Juan Rodriguez MD Sickle cell pain crisis (H); Left hip pain; Nondisplaced articular fracture of head of left femur, initial encounter for closed fracture (H) Discharge Disposition: Home or Self Care 04/19/2024 Travel 04/08/2024 9:38 PM SKILLED NURSING CASE MANAGER - 04/10/2024 10:16 AM SKILLED NURSING CASE MANAGER Hospital Encounter [facility] [address] [place] [phone] Iliana Weber MD Huynh, Ryan K, MD Raddawi, Kenan, MD Sickle cell pain crisis (H) Discharge Disposition: Home or Self Care 04/08/2024 Travel 04/05/2024 11:32 PM SKILLED NURSING CASE MANAGER - 04/06/2024 3:04 AM SKILLED NURSING CASE MANAGER Emergency [facility] Emergency Room [address] [place] [phone] Guille Davis DO Sickle cell pain crisis (H); Pulmonary nodules Discharge Disposition: Home or Self Care 04/05/2024 Travel 03/29/2024 PRE VISIT [facility] [address] [place] [phone] Provider, Generic External Data *-*INCOMING RECORDS*-* (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 (H) [D57.1]) 03/28/2024 Transcribe Orders GENERIC EXTERNAL DATA DEPARTMENT Provider, Generic External Data 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 (H) (Primary Dx) 03/27/2024 Telephone [facility] [address] [place] [phone] Hector Crabtree RN Results from Last [...] on file Legal Sex Female 8:25 AM SKILLED NURSING CASE MANAGER Gender Identity Not on file Sexual Orientation Not on file Last Filed Vital Signs Vital Sign Reading Time Taken Comments Blood Pressure 111/67 06/24/2024 11:56 AM SKILLED NURSING CASE MANAGER Pulse 101 06/24/2024 12:11 PM SKILLED NURSING CASE MANAGER Temperature 36.9 C (98.4 F) 06/24/2024 9:26 AM SKILLED NURSING CASE MANAGER Respiratory Rate 16 06/24/2024 9:26 AM SKILLED NURSING CASE MANAGER Oxygen Saturation 100% 06/24/2024 12:11 PM SKILLED NURSING CASE MANAGER Inhaled Oxygen Concentration - - Weight 52.2 kg (115 lb) 06/24/2024 9:26 AM SKILLED NURSING CASE MANAGER Height 154.9 cm (5' 1) 06/24/2024 9:26 AM SKILLED NURSING CASE MANAGER Body Mass Index 21.73 06/24/2024 9:26 AM SKILLED NURSING CASE MANAGER Plan of Treatment Health Maintenance Due Date [...] Management General On track( 025 12:40 PM SKILLED NURSING CASE MANAGER) Yes Juhi Benson, RN Note: Goal [...] medication remaining. Medical Devices Implanted Type Area Center Machine Operator Device Identifier Shelf Expiration Date Model / Serial / Lot Bard 9.6 Powerflow Apheresis Iv Port-05/25/2024 Implanted:Qty: 1 on 05/25/2024 by Myron Michel MD Port Right: Chest Wall BARD 08/23/2024 [id number] / / [id number] Description:Right chest Wall Apheresis Port 9.6FR (Power) 6frt Smartport-05/25 Implanted:Qty: 1 on 05/25/2024 by Myron Michel MD Port Left: Chest Wall [employer] 09/23/2026 [id number] / / [id number] Description:6FR SL SmartPort (Power - 300psi max) Procedures Procedure Name Priority Date/Time Associated Diagnosis Comments ROUTINE UA WITH MICROSCOPIC REFLEX TO CULTURE STAT 06/24/2024 10:15 AM SKILLED NURSING CASE MANAGER CBC WITH PLATELETS & DIFFERENTIAL STAT 06/24/2024 10:11 AM SKILLED NURSING CASE MANAGER CBC WITH PLATELETS AND DIFFERENTIAL STAT 06/24/2024 10:11 AM SKILLED NURSING CASE MANAGER RETICULOCYTE COUNT STAT 06/24/2024 10:11 AM SKILLED NURSING CASE MANAGER HCG QUALITATIVE STAT 06/24/2024 10:11 AM SKILLED NURSING CASE MANAGER MAGNESIUM STAT 06/24/2024 10:11 AM SKILLED NURSING CASE MANAGER COMPREHENSIVE METABOLIC PANEL STAT 06/24/2024 10:11 AM SKILLED NURSING CASE MANAGER INR STAT 06/24/2024 10:11 AM SKILLED NURSING CASE MANAGER PARTIAL THROMBOPLASTIN TIME STAT 06/24/2024 10:11 AM SKILLED NURSING CASE MANAGER CBC WITH PLATELETS & DIFFERENTIAL STAT 06/23/2024 6:22 PM SKILLED NURSING CASE MANAGER DIFFERENTIAL STAT 06/23/2024 6:22 PM SKILLED NURSING CASE MANAGER CBC WITH PLATELETS AND DIFFERENTIAL STAT 06/23/2024 6:22 PM SKILLED NURSING CASE MANAGER HCG QUALITATIVE STAT 06/23/2024 6:22 PM SKILLED NURSING CASE MANAGER COMPREHENSIVE METABOLIC PANEL STAT 06/23/2024 6:22 PM SKILLED NURSING CASE MANAGER CBC WITH PLATELETS & DIFFERENTIAL STAT 06/22/2024 7:10 PM SKILLED NURSING CASE MANAGER CBC WITH PLATELETS AND DIFFERENTIAL STAT 06/22/2024 7:10 PM SKILLED NURSING CASE MANAGER RETICULOCYTE COUNT STAT 06/22/2024 7: 10 PM SKILLED NURSING CASE MANAGER HCG QUALITATIVE STAT 06/22/2024 7:10 PM SKILLED NURSING CASE MANAGER COMPREHENSIVE METABOLIC PANEL STAT 06/22/2024 7:10 PM SKILLED NURSING CASE MANAGER CBC WITH PLATELETS & DIFFERENTIAL STAT 06/20/2024 5:48 AM SKILLED NURSING CASE MANAGER CBC WITH PLATELETS AND DIFFERENTIAL STAT 06/20/2024 5:48 AM SKILLED NURSING CASE MANAGER RETICULOCYTE COUNT Routine 06/20/2024 5: 48 AM SKILLED NURSING CASE MANAGER COMPREHENSIVE METABOLIC PANEL Routine 06/20/2024 5:48 AM SKILLED NURSING CASE MANAGER LACTATE DEHYDROGENASE Routine 06/20/2024 5:48 AM SKILLED NURSING CASE MANAGER CBC WITH PLATELETS & DIFFERENTIAL STAT 06/19/2024 9:30 AM SKILLED NURSING CASE MANAGER RBC AND PLATELET MORPHOLOGY STAT 06/19/2024 9:30 AM SKILLED NURSING CASE MANAGER CBC WITH PLATELETS AND DIFFERENTIAL STAT 06/19/2024 9:30 AM SKILLED NURSING CASE MANAGER RETICULOCYTE COUNT STAT 06/19/2024 9: 30 AM SKILLED NURSING CASE MANAGER COMPREHENSIVE METABOLIC PANEL STAT 06/19/2024 9:30 AM SKILLED NURSING CASE MANAGER LACTATE DEHYDROGENASE STAT 06/19/2024 9:30 AM SKILLED NURSING CASE MANAGER PLATELET COUNT STAT 06/19/2024 12:17 AM SKILLED NURSING CASE MANAGER CREATININE STAT 06/19/2024 12:17 AM SKILLED NURSING CASE MANAGER CBC WITH PLATELETS & DIFFERENTIAL STAT 06/18/2024 8:24 AM SKILLED NURSING CASE MANAGER DIFFERENTIAL STAT 06/18/2024 8:24 AM SKILLED NURSING CASE MANAGER CBC WITH PLATELETS AND DIFFERENTIAL STAT 06/18/2024 8:24 AM SKILLED NURSING CASE MANAGER RETICULOCYTE COUNT STAT 06/18/2024 8: 24 AM SKILLED NURSING CASE MANAGER COMPREHENSIVE METABOLIC PANEL STAT 06/18/2024 8:24 AM SKILLED NURSING CASE MANAGER LACTATE DEHYDROGENASE STAT 06/18/2024 8:24 AM SKILLED NURSING CASE MANAGER ROUTINE UA WITH MICROSCOPIC REFLEX TO CULTURE STAT 06/17/2024 1:11 PM SKILLED NURSING CASE MANAGER TRANSFUSE RED BLOOD CELLS (UNIT) STAT 06/17/2024 10:26 AM SKILLED NURSING CASE MANAGER PREPARE RED BLOOD CELLS (UNIT) STAT 06/17/2024 9:12 AM SKILLED NURSING CASE MANAGER TRANSFERRIN Add-On 06/17/2024 6:16 AM SKILLED NURSING CASE MANAGER IRON AND IRON BINDING CAPACITY Add-On 06/17/2024 6:16 AM SKILLED NURSING CASE MANAGER CBC WITH PLATELETS STAT 06/17/2024 6: 16 AM SKILLED NURSING CASE MANAGER BASIC METABOLIC PANEL STAT 06/17/2024 6:16 AM SKILLED NURSING CASE MANAGER TROPONIN T, HIGH SENSITIVITY STAT 06/16/2024 9:33 PM SKILLED NURSING CASE MANAGER XR CHEST 2 VIEWS STAT 06/16/2024 6:09 PM SKILLED NURSING CASE MANAGER ABO/RH TYPE AND SCREEN STAT 5:37 PM SKILLED NURSING CASE MANAGER CBC WITH PLATELETS & DIFFERENTIAL STAT 06/16/2024 5:37 PM SKILLED NURSING CASE MANAGER BLOOD CULTURE STAT 06/16/2024 5:37 PM SKILLED NURSING CASE MANAGER TYPE AND SCREEN, ADULT STAT 5:37 PM SKILLED NURSING CASE MANAGER RBC AND PLATELET MORPHOLOGY STAT 06/16/2024 5:37 PM SKILLED NURSING CASE MANAGER CBC WITH PLATELETS AND DIFFERENTIAL STAT 06/16/2024 5:37 PM SKILLED NURSING CASE MANAGER PROLACTIN STAT 06/16/2024 5:37 PM SKILLED NURSING CASE MANAGER TROPONIN T, HIGH SENSITIVITY STAT 06/16/2024 5:37 PM SKILLED NURSING CASE MANAGER COMPREHENSIVE METABOLIC PANEL STAT 06/16/2024 5:37 PM SKILLED NURSING CASE MANAGER EKG 12-LEAD, TRACING ONLY STAT 06/16/2024 4:55 PM SKILLED NURSING CASE MANAGER CBC WITH PLATELETS & DIFFERENTIAL STAT 06/15/2024 6:09 AM SKILLED NURSING CASE MANAGER CBC WITH PLATELETS AND DIFFERENTIAL STAT 06/15/2024 6:09 AM SKILLED NURSING CASE MANAGER BASIC METABOLIC PANEL STAT 06/15/2024 6:09 AM SKILLED NURSING CASE MANAGER XR CHEST PORT 1 VIEW STAT 06/14/2024 8:46 AM SKILLED NURSING CASE MANAGER CBC WITH PLATELETS STAT 06/14/2024 7: 08 AM SKILLED NURSING CASE MANAGER BASIC METABOLIC PANEL STAT 06/14/2024 7:08 AM SKILLED NURSING CASE MANAGER CBC WITH PLATELETS STAT 06/13/2024 6: 32 PM SKILLED NURSING CASE MANAGER CBC WITH PLATELETS & DIFFERENTIAL STAT 06/13/2024 6:00 AM SKILLED NURSING CASE MANAGER RBC AND PLATELET MORPHOLOGY STAT 06/13/2024 6:00 AM SKILLED NURSING CASE MANAGER CBC WITH PLATELETS AND DIFFERENTIAL STAT 06/13/2024 6:00 AM SKILLED NURSING CASE MANAGER BASIC METABOLIC PANEL STAT 06/13/2024 5:59 AM SKILLED NURSING CASE MANAGER RESPIRATORY PANEL PCR STAT 06/12/2024 9:34 PM SKILLED NURSING CASE MANAGER BLOOD CULTURE STAT 06/12/2024 8:46 PM SKILLED NURSING CASE MANAGER BLOOD CULTURE STAT 06/12/2024 8:46 PM SKILLED NURSING CASE MANAGER XR CHEST 2 VIEWS STAT 06/12/2024 7:38 PM SKILLED NURSING CASE MANAGER ABO/RH TYPE AND SCREEN Add-On 7:17 PM SKILLED NURSING CASE MANAGER CBC WITH PLATELETS & DIFFERENTIAL STAT 06/12/2024 7:17 PM SKILLED NURSING CASE MANAGER TYPE AND SCREEN, ADULT Routine 7:17 PM SKILLED NURSING CASE MANAGER RBC AND PLATELET MORPHOLOGY STAT 06/12/2024 7:17 PM SKILLED NURSING CASE MANAGER CBC WITH PLATELETS AND DIFFERENTIAL STAT 06/12/2024 7:17 PM SKILLED NURSING CASE MANAGER BLOOD GAS VENOUS STAT 06/12/2024 7:17 PM SKILLED NURSING CASE MANAGER TROPONIN T, HIGH SENSITIVITY STAT 06/12/2024 7:17 PM SKILLED NURSING CASE MANAGER BASIC METABOLIC PANEL STAT 06/12/2024 7:17 PM SKILLED NURSING CASE MANAGER INR STAT 06/12/2024 7:17 PM SKILLED NURSING CASE MANAGER EKG 12-LEAD, TRACING ONLY STAT 06/12/2024 6:37 PM SKILLED NURSING CASE MANAGER ECG 12-LEAD WITH MUSE SJN,SJO,WWH STAT 06/11/2024 9:04 PM SKILLED NURSING CASE MANAGER CBC WITH PLATELETS & DIFFERENTIAL Routine 06/07/2024 1:15 PM SKILLED NURSING CASE MANAGER Sickle cell pain crisis (H) RBC AND PLATELET MORPHOLOGY Routine 06/07/2024 1:15 PM SKILLED NURSING CASE MANAGER Sickle cell pain crisis (H) INFLUENZA A/B, RSV AND SARS-COV2 PCR Routine 06/07/2024 1:15 PM SKILLED NURSING CASE MANAGER Fever CBC WITH PLATELETS AND DIFFERENTIAL Routine 06/07/2024 1:15 PM SKILLED NURSING CASE MANAGER Sickle cell pain crisis (H) BASIC METABOLIC PANEL Routine 06/07/2024 1:15 PM SKILLED NURSING CASE MANAGER Sickle cell pain crisis (H) ECG 12-LEAD WITH MUSE SJN,SJO,WWH STAT 06/05/2024 11:40 AM SKILLED NURSING CASE MANAGER ECG 12-LEAD WITH MUSE SJN,SJO,WWH STAT 06/03/2024 3:24 PM SKILLED NURSING CASE MANAGER CBC WITH PLATELETS & DIFFERENTIAL STAT 05/31/2024 10:21 PM SKILLED NURSING CASE MANAGER RBC AND PLATELET MORPHOLOGY STAT 05/31/2024 10:21 PM SKILLED NURSING CASE MANAGER CBC WITH PLATELETS AND DIFFERENTIAL STAT 05/31/2024 10:21 PM SKILLED NURSING CASE MANAGER BASIC METABOLIC PANEL STAT 05/31/2024 10:21 PM SKILLED NURSING CASE MANAGER RETICULOCYTE COUNT STAT 05/31/2024 10:21 PM SKILLED NURSING CASE MANAGER TRANSFUSE RED BLOOD CELLS (UNIT) Routine 05/30/2024 8:28 AM SKILLED NURSING CASE MANAGER 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) History of transfusion PREPARE RED BLOOD CELLS (UNIT) Routine 05/29/2024 5:12 PM SKILLED NURSING CASE MANAGER ABO/RH TYPE AND SCREEN Routine 11:23 AM SKILLED NURSING CASE MANAGER History of transfusion CBC WITH PLATELETS & DIFFERENTIAL Routine 05/29/2024 11:23 AM SKILLED NURSING CASE MANAGER BILL ONLY- CAPILLARY ELECTROPHORESIS Routine 05/29/2024 11:23 AM SKILLED NURSING CASE MANAGER BILL ONLY- SICKLE SOLUBILITY BILL Routine 05/29/2024 11:23 AM SKILLED NURSING CASE MANAGER URINE CULTURE Routine 05/29/2024 11:23 AM SKILLED NURSING CASE MANAGER TYPE AND SCREEN, ADULT Add-On 11:23 AM SKILLED NURSING CASE MANAGER History of transfusion RBC AND PLATELET MORPHOLOGY Routine 05/29/2024 11:23 AM SKILLED NURSING CASE MANAGER CBC WITH PLATELETS AND DIFFERENTIAL Routine 05/29/2024 11:23 AM SKILLED NURSING CASE MANAGER GENOTYPE RED BLOOD CELL Routine 05/29/2024 11:23 AM SKILLED NURSING CASE MANAGER History of transfusion HEMOGLOBIN EVAL REFLEX TO ELP OR RBC SOLUBILITY Routine 05/29/2024 11:23 AM SKILLED NURSING CASE MANAGER FERRITIN Routine 05/29/2024 11:23 AM SKILLED NURSING CASE MANAGER ROUTINE UA WITH MICROSCOPIC REFLEX TO CULTURE Routine 05/29/2024 11:23 AM SKILLED NURSING CASE MANAGER COMPREHENSIVE METABOLIC PANEL Routine 05/29/2024 11:23 AM SKILLED NURSING CASE MANAGER RETICULOCYTE COUNT Routine 05/29/2024 11:23 AM SKILLED NURSING CASE MANAGER CBC WITH PLATELETS & DIFFERENTIAL STAT 05/29/2024 12:53 AM SKILLED NURSING CASE MANAGER MANUAL DIFFERENTIAL STAT 05/29/2024 12:53 AM SKILLED NURSING CASE MANAGER CBC WITH PLATELETS AND DIFFERENTIAL STAT 05/29/2024 12:53 AM SKILLED NURSING CASE MANAGER RETICULOCYTE COUNT STAT 05/29/2024 12:53 AM SKILLED NURSING CASE MANAGER CBC WITH PLATELETS & DIFFERENTIAL STAT 05/27/2024 3:13 PM SKILLED NURSING CASE MANAGER MANUAL DIFFERENTIAL STAT 05/27/2024 3 :13 PM SKILLED NURSING CASE MANAGER CBC WITH PLATELETS AND DIFFERENTIAL STAT 05/27/2024 3:13 PM SKILLED NURSING CASE MANAGER RETICULOCYTE COUNT STAT 05/27/2024 3: 13 PM SKILLED NURSING CASE MANAGER XR CHEST 2 VIEWS STAT 05/27/2024 2:57 PM SKILLED NURSING CASE MANAGER COMPREHENSIVE METABOLIC PANEL STAT 05/27/2024 2:30 PM SKILLED NURSING CASE MANAGER ECG 12-LEAD WITH MUSE SJN,SJO,WWH STAT 05/27/2024 12:12 PM SKILLED NURSING CASE MANAGER IR PROCEDURE NOTE Routine 05/25/2024 2:5 4 PM SKILLED NURSING CASE MANAGER IR CHEST PORT PLACEMENT > 5 YRS OF AGE Routine: Next available opening 05/25/2024 2:47 PM SKILLED NURSING CASE MANAGER 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) IR CHEST PORT PLACEMENT > 5 YRS OF AGE Priority: 1-2 Weeks 05/25/2024 2:47 PM SKILLED NURSING CASE MANAGER 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) HCG QUALITATIVE URINE Routine 05/25/2024 12:03 PM SKILLED NURSING CASE MANAGER CT CHEST PULMONARY EMBOLISM W CONTRAST STAT 05/23/2024 9:33 PM SKILLED NURSING CASE MANAGER N TERMINAL PRO BNP OUTPATIENT STAT 05/23/2024 9:02 PM SKILLED NURSING CASE MANAGER TROPONIN T, HIGH SENSITIVITY STAT 05/23/2024 9:02 PM SKILLED NURSING CASE MANAGER RETICULOCYTE COUNT STAT 05/23/2024 9:02 PM SKILLED NURSING CASE MANAGER CBC WITH PLATELETS STAT 05/23/2024 9: 02 PM SKILLED NURSING CASE MANAGER ECG 12-LEAD WITH MUSE SJN,SJO,WWH STAT 05/23/2024 6:54 PM SKILLED NURSING CASE MANAGER XR CHEST 2 VIEWS STAT 05/22/2024 5:19 PM SKILLED NURSING CASE MANAGER CBC WITH PLATELETS & DIFFERENTIAL STAT 05/22/2024 3:51 PM SKILLED NURSING CASE MANAGER RBC AND PLATELET MORPHOLOGY STAT 05/22/2024 3:51 PM SKILLED NURSING CASE MANAGER CBC WITH PLATELETS AND DIFFERENTIAL STAT 05/22/2024 3:51 PM SKILLED NURSING CASE MANAGER BASIC METABOLIC PANEL STAT 05/22/2024 3:51 PM SKILLED NURSING CASE MANAGER ECG 12-LEAD WITH MUSE SJN,SJO,WWH STAT 05/22/2024 3:14 PM SKILLED NURSING CASE MANAGER XR CHEST 2 VIEWS STAT 05/20/2024 9:30 AM SKILLED NURSING CASE MANAGER CBC WITH PLATELETS & DIFFERENTIAL STAT 05/20/2024 9:09 AM SKILLED NURSING CASE MANAGER RBC AND PLATELET MORPHOLOGY STAT 05/20/2024 9:09 AM SKILLED NURSING CASE MANAGER BASIC METABOLIC PANEL STAT 05/20/2024 9:09 AM SKILLED NURSING CASE MANAGER EXTRA GREEN TOP (LITHIUM HEPARIN) TUBE STAT 05/20/2024 9:09 AM SKILLED NURSING CASE MANAGER EXTRA TUBE STAT 05/20/2024 9:09 AM SKILLED NURSING CASE MANAGER CBC WITH PLATELETS AND DIFFERENTIAL STAT 05/20/2024 9:09 AM SKILLED NURSING CASE MANAGER RETICULOCYTE COUNT STAT 05/20/2024 9: 09 AM SKILLED NURSING CASE MANAGER BASIC METABOLIC PANEL STAT 05/20/2024 8:21 AM SKILLED NURSING CASE MANAGER ECG 12-LEAD WITH MUSE SJN,SJO,WWH STAT 05/20/2024 7:36 AM SKILLED NURSING CASE MANAGER CBC WITH PLATELETS & DIFFERENTIAL STAT 05/19/2024 3:05 AM SKILLED NURSING CASE MANAGER MANUAL DIFFERENTIAL STAT 05/19/2024 3 :05 AM SKILLED NURSING CASE MANAGER CBC WITH PLATELETS AND DIFFERENTIAL STAT 05/19/2024 3:05 AM SKILLED NURSING CASE MANAGER HCG QUALITATIVE STAT 05/19/2024 3:05 AM SKILLED NURSING CASE MANAGER CK TOTAL STAT 05/19/2024 3:05 AM SKILLED NURSING CASE MANAGER HEPATIC FUNCTION PANEL STAT 3:05 AM SKILLED NURSING CASE MANAGER BASIC METABOLIC PANEL STAT 05/19/2024 3:05 AM SKILLED NURSING CASE MANAGER RETICULOCYTE COUNT STAT 05/19/2024 3: 05 AM SKILLED NURSING CASE MANAGER CBC WITH PLATELETS & DIFFERENTIAL STAT 05/16/2024 10:17 PM SKILLED NURSING CASE MANAGER RBC AND PLATELET MORPHOLOGY STAT 05/16/2024 10:17 PM SKILLED NURSING CASE MANAGER CBC WITH PLATELETS AND DIFFERENTIAL STAT 05/16/2024 10:17 PM SKILLED NURSING CASE MANAGER BASIC METABOLIC PANEL STAT 05/16/2024 10:17 PM SKILLED NURSING CASE MANAGER INFLUENZA A/B, RSV AND SARS-COV2 PCR STAT 05/16/2024 10:00 PM SKILLED NURSING CASE MANAGER CBC WITH PLATELETS & DIFFERENTIAL STAT 05/14/2024 10:24 PM SKILLED NURSING CASE MANAGER MANUAL DIFFERENTIAL STAT 05/14/2024 10:24 PM SKILLED NURSING CASE MANAGER CBC WITH PLATELETS AND DIFFERENTIAL STAT 05/14/2024 10:24 PM SKILLED NURSING CASE MANAGER HCG QUALITATIVE STAT 05/14/2024 10:24 PM SKILLED NURSING CASE MANAGER TROPONIN T, HIGH SENSITIVITY STAT 05/14/2024 10:24 PM SKILLED NURSING CASE MANAGER RETICULOCYTE COUNT STAT 05/14/2024 10:24 PM SKILLED NURSING CASE MANAGER HEPATIC FUNCTION PANEL STAT 10:24 PM SKILLED NURSING CASE MANAGER BASIC METABOLIC PANEL STAT 05/14/2024 10:24 PM SKILLED NURSING CASE MANAGER ECG 12-LEAD WITH MUSE SJN,SJO,WWH STAT 05/14/2024 10:12 PM SKILLED NURSING CASE MANAGER EXTRA PURPLE TOP TUBE STAT 05/13/2024 6:17 PM SKILLED NURSING CASE MANAGER EXTRA TUBE STAT 05/13/2024 6:17 PM SKILLED NURSING CASE MANAGER LACTATE DEHYDROGENASE STAT 05/13/2024 6:16 PM SKILLED NURSING CASE MANAGER CBC WITH PLATELETS & DIFFERENTIAL STAT 05/13/2024 4:57 PM SKILLED NURSING CASE MANAGER MANUAL DIFFERENTIAL STAT 05/13/2024 4 :57 PM SKILLED NURSING CASE MANAGER CBC WITH PLATELETS AND DIFFERENTIAL STAT 05/13/2024 4:57 PM SKILLED NURSING CASE MANAGER TROPONIN T, HIGH SENSITIVITY STAT 05/13/2024 4:57 PM SKILLED NURSING CASE MANAGER RETICULOCYTE COUNT STAT 05/13/2024 4: 57 PM SKILLED NURSING CASE MANAGER HEPATIC FUNCTION PANEL STAT 4:57 PM SKILLED NURSING CASE MANAGER BASIC METABOLIC PANEL STAT 05/13/2024 4:57 PM SKILLED NURSING CASE MANAGER ECG 12-LEAD WITH MUSE SJN,SJO,WWH STAT 05/13/2024 3:38 PM SKILLED NURSING CASE MANAGER INFLUENZA A/B, RSV AND SARS-COV2 PCR STAT 05/08/2024 7:33 PM SKILLED NURSING CASE MANAGER XR CHEST 2 VIEWS STAT 05/08/2024 5:27 PM SKILLED NURSING CASE MANAGER CBC WITH PLATELETS & DIFFERENTIAL STAT 05/08/2024 4:14 PM SKILLED NURSING CASE MANAGER RBC AND PLATELET MORPHOLOGY STAT 05/08/2024 4:14 PM SKILLED NURSING CASE MANAGER CBC WITH PLATELETS AND DIFFERENTIAL STAT 05/08/2024 4:14 PM SKILLED NURSING CASE MANAGER HCG QUALITATIVE STAT 05/08/2024 4:14 PM SKILLED NURSING CASE MANAGER INR STAT 05/08/2024 4:14 PM SKILLED NURSING CASE MANAGER TROPONIN T, HIGH SENSITIVITY STAT 05/08/2024 4:14 PM SKILLED NURSING CASE MANAGER RETICULOCYTE COUNT STAT 05/08/2024 4: 14 PM SKILLED NURSING CASE MANAGER COMPREHENSIVE METABOLIC PANEL STAT 05/08/2024 4:14 PM SKILLED NURSING CASE MANAGER ECG 12-LEAD WITH MUSE SJN,SJO,WWH STAT 05/08/2024 3:13 PM SKILLED NURSING CASE MANAGER ECG 12-LEAD WITH MUSE SJN,SJO,WWH STAT 05/06/2024 7:51 PM SKILLED NURSING CASE MANAGER CBC WITH PLATELETS & DIFFERENTIAL STAT 05/06/2024 7:43 PM SKILLED NURSING CASE MANAGER RBC AND PLATELET MORPHOLOGY STAT 05/06/2024 7:43 PM SKILLED NURSING CASE MANAGER CBC WITH PLATELETS AND DIFFERENTIAL STAT 05/06/2024 7:43 PM SKILLED NURSING CASE MANAGER HEPATIC FUNCTION PANEL STAT 7:43 PM SKILLED NURSING CASE MANAGER RETICULOCYTE COUNT STAT 05/06/2024 7: 43 PM SKILLED NURSING CASE MANAGER TROPONIN T, HIGH SENSITIVITY STAT 05/06/2024 7:43 PM SKILLED NURSING CASE MANAGER BASIC METABOLIC PANEL STAT 05/06/2024 7:43 PM SKILLED NURSING CASE MANAGER XR CHEST 2 VIEWS STAT 05/05/2024 12:16 PM SKILLED NURSING CASE MANAGER CBC WITH PLATELETS & DIFFERENTIAL STAT 05/05/2024 11:50 AM SKILLED NURSING CASE MANAGER RBC AND PLATELET MORPHOLOGY STAT 05/05/2024 11:50 AM SKILLED NURSING CASE MANAGER CBC WITH PLATELETS AND DIFFERENTIAL STAT 05/05/2024 11:50 AM SKILLED NURSING CASE MANAGER TROPONIN T, HIGH SENSITIVITY STAT 05/05/2024 11:50 AM SKILLED NURSING CASE MANAGER RETICULOCYTE COUNT STAT 05/05/2024 11:50 AM SKILLED NURSING CASE MANAGER BASIC METABOLIC PANEL STAT 05/05/2024 11:50 AM SKILLED NURSING CASE MANAGER ECG 12-LEAD WITH MUSE SJN,SJO,WWH STAT 05/05/2024 11:03 AM SKILLED NURSING CASE MANAGER CBC WITH PLATELETS & DIFFERENTIAL STAT 04/28/2024 1:50 AM SKILLED NURSING CASE MANAGER VITAMIN D DEFICIENCY SCREENING Add-On 04/28/2024 1:50 AM SKILLED NURSING CASE MANAGER Sickle cell pain crisis (H) MANUAL DIFFERENTIAL STAT 04/28/2024 1 :50 AM SKILLED NURSING CASE MANAGER CBC WITH PLATELETS AND DIFFERENTIAL STAT 04/28/2024 1:50 AM SKILLED NURSING CASE MANAGER RETICULOCYTE COUNT STAT 04/28/2024 1: 50 AM SKILLED NURSING CASE MANAGER COMPREHENSIVE METABOLIC PANEL STAT 04/28/2024 1:50 AM SKILLED NURSING CASE MANAGER CBC WITH PLATELETS & DIFFERENTIAL STAT 04/27/2024 12:23 AM SKILLED NURSING CASE MANAGER RBC AND PLATELET MORPHOLOGY STAT 04/27/2024 12:23 AM SKILLED NURSING CASE MANAGER CBC WITH PLATELETS AND DIFFERENTIAL STAT 04/27/2024 12:23 AM SKILLED NURSING CASE MANAGER RETICULOCYTE COUNT STAT 04/27/2024 12:23 AM SKILLED NURSING CASE MANAGER COMPREHENSIVE METABOLIC PANEL STAT 04/27/2024 12:23 AM SKILLED NURSING CASE MANAGER CT PELVIS BONE WO CONTRAST STAT 04/19/2024 3:22 AM SKILLED NURSING CASE MANAGER HCG QUALITATIVE URINE STAT 04/19/2024 2:17 AM SKILLED NURSING CASE MANAGER ROUTINE UA WITH MICROSCOPIC REFLEX TO CULTURE STAT 04/19/2024 2:16 AM SKILLED NURSING CASE MANAGER CBC WITH PLATELETS & DIFFERENTIAL STAT 04/19/2024 2:11 AM SKILLED NURSING CASE MANAGER MANUAL DIFFERENTIAL STAT 04/19/2024 2 :11 AM SKILLED NURSING CASE MANAGER CBC WITH PLATELETS AND DIFFERENTIAL STAT 04/19/2024 2:11 AM SKILLED NURSING CASE MANAGER RETICULOCYTE COUNT STAT 04/19/2024 2: 11 AM SKILLED NURSING CASE MANAGER BASIC METABOLIC PANEL STAT 04/19/2024 2:11 AM SKILLED NURSING CASE MANAGER CBC WITH PLATELETS & DIFFERENTIAL Routine 04/10/2024 5:35 AM SKILLED NURSING CASE MANAGER CBC WITH PLATELETS AND DIFFERENTIAL Routine 04/10/2024 5:35 AM SKILLED NURSING CASE MANAGER CBC WITH PLATELETS STAT 04/09/2024 6: 13 AM SKILLED NURSING CASE MANAGER BASIC METABOLIC PANEL STAT 04/09/2024 6:13 AM SKILLED NURSING CASE MANAGER CBC WITH PLATELETS & DIFFERENTIAL STAT 04/08/2024 10:22 PM SKILLED NURSING CASE MANAGER EXTRA RED TOP TUBE STAT 04/08/2024 10:22 PM SKILLED NURSING CASE MANAGER EXTRA BLUE TOP TUBE STAT 04/08/2024 10:22 PM SKILLED NURSING CASE MANAGER CBC WITH PLATELETS AND DIFFERENTIAL STAT 04/08/2024 10:22 PM SKILLED NURSING CASE MANAGER EXTRA TUBE STAT 04/08/2024 10:22 PM SKILLED NURSING CASE MANAGER BASIC METABOLIC PANEL STAT 04/08/2024 10:22 PM SKILLED NURSING CASE MANAGER RETICULOCYTE COUNT STAT 04/08/2024 10:22 PM SKILLED NURSING CASE MANAGER ECG 12-LEAD WITH MUSE SJN,SJO,WWH STAT 04/08/2024 9:45 PM SKILLED NURSING CASE MANAGER CT CHEST PULMONARY EMBOLISM W CONTRAST STAT 04/06/2024 2:22 AM SKILLED NURSING CASE MANAGER D DIMER QUANTITATIVE STAT 04/06/2024 12:45 AM SKILLED NURSING CASE MANAGER TROPONIN T, HIGH SENSITIVITY STAT 04/06/2024 12:45 AM SKILLED NURSING CASE MANAGER BASIC METABOLIC PANEL STAT 04/06/2024 12:45 AM SKILLED NURSING CASE MANAGER CBC WITH PLATELETS AND DIFFERENTIAL STAT 04/06/2024 12:43 AM SKILLED NURSING CASE MANAGER ECG 12-LEAD WITH MUSE SJN,SJO,WWH STAT 04/06/2024 12:41 AM SKILLED NURSING CASE MANAGER CBC WITH PLATELETS & DIFFERENTIAL STAT 04/05/2024 11:47 PM SKILLED NURSING CASE MANAGER from Last 3 Months Results * (ABNORMAL) UA with Microscopic reflex to Culture (06/24/2024 10:15 AM SKILLED NURSING CASE MANAGER) Only the most recent of4 resultswithin the time period is included. Color Urine Light Yellow Colorless, Straw, Light Yellow, Yellow 06/24/2024 10:25 AM SKILLED NURSING CASE MANAGER [facility] Appearance Urine Clear Clear 06/25/19 10:25 AM SKILLED NURSING CASE MANAGER [facility] Glucose Urine Negative Negative mg/dL 06/24/2024 10:25 AM SKILLED NURSING CASE MANAGER [facility] Bilirubin Urine Negative Negative 10:25 AM SKILLED NURSING CASE MANAGER [facility] Ketones Urine Negative Negative mg/dL 06/24/2024 10:25 AM SKILLED NURSING CASE MANAGER [facility] Specific Jeremiah Urine 1.009 1.003 - 1.035 06/24/2024 10:25 AM SKILLED NURSING CASE MANAGER [facility] Blood Urine Negative Negative 06/24/2024 10:25 AM SKILLED NURSING CASE MANAGER [facility] pH Urine 7.5(H) 5.0 - 7.0 06/24/2024 10:25 AM SKILLED NURSING CASE MANAGER [facility] Protein Albumin Urine Negative Negative mg/dL 06/24/2024 10:25 AM SKILLED NURSING CASE MANAGER [facility] Urobilinogen Urine Normal Normal, 2.0 mg/dL 06/24/2024 10:25 AM SKILLED NURSING CASE MANAGER [facility] Nitrite Urine Negative Negative 06/24/2024 10:25 AM SKILLED NURSING CASE MANAGER [facility] Leukocyte Esterase Urine Negative Negative 06/24/2024 10:25 AM SKILLED NURSING CASE MANAGER [facility] RBC Urine <1 <=2 /HPF 06/24/2024 10:25 AM SKILLED NURSING CASE MANAGER [facility] WBC Urine <1 <=5 /HPF 06/24/2024 10:25 AM SKILLED NURSING CASE MANAGER [facility] Squamous Epithelials Urine 11(H) <=1 /HPF 06/24/2024 10:25 AM SKILLED NURSING CASE MANAGER [facility] Hyaline Casts Urine 1 <=2 /LPF 06/24/2024 10:25 AM SKILLED NURSING CASE MANAGER [facility] Urine MID-STREAM URINE SPECIMEN / Unknown Non-blood Collection / Unknown 06/24/2024 10:15 AM SKILLED NURSING CASE MANAGER 06/24/2024 10:20 AM SKILLED NURSING CASE MANAGER Narrative [facility] - 06/24/2024 10:25 AM SKILLED NURSING CASE MANAGER Urine Culture not indicated us Richar Mahajan MD LAB - URINE ORDERABLES Liss bola Result [facility] [place] [facility] [address] [facility] [address], [address] [place] [id number], [facility] * (ABNORMAL) CBC with platelets and differential (06/24/2024 10:11 AM SKILLED NURSING CASE MANAGER) Only the most recent of30 resultswithin the time period is included. WBC Count 7.8 4.0 - 11.0 10e3/uL 06/24/2024 10:28 AM SKILLED NURSING CASE MANAGER [facility] RBC Count 2.49(L) 3.80 - 5.20 10e6/uL 06/24/2024 10:28 AM SKILLED NURSING CASE MANAGER [facility] Hemoglobin 7.9(L) 11.7 - 15.7 g/dL 06/24/2024 10:28 AM SKILLED NURSING CASE MANAGER [facility] Hematocrit 24.8(L) 35.0 - 47.0 % 06/24/2024 10:28 AM SKILLED NURSING CASE MANAGER [facility] MCV 100 78 - 100 fL 06/24/2024 10:28 AM SKILLED NURSING CASE MANAGER [facility] MCH 31.7 26.5 - 33.0 pg 06/24/2024 10:28 AM SKILLED NURSING CASE MANAGER [facility] MCHC 31.9 31.5 - 36.5 g/dL 06/24/2024 10:28 AM SKILLED NURSING CASE MANAGER [facility] RDW 19.0(H) 10.0 - 15.0 % 06/24/2024 10:28 AM SKILLED NURSING CASE MANAGER [facility] Platelet Count 482(H) 150 - 450 10e3/uL 06/24/2024 10:28 AM SKILLED NURSING CASE MANAGER [facility] % Neutrophils 61 % 06/24/2024 10:28 AM SKILLED NURSING CASE MANAGER [facility] % Lymphocytes 26 % 06/24/2024 10:28 AM SKILLED NURSING CASE MANAGER [facility] % Monocytes 9 % 06/24/2024 10:28 AM SKILLED NURSING CASE MANAGER [facility] % Eosinophils 1 % 06/24/2024 10:28 AM SKILLED NURSING CASE MANAGER [facility] % Basophils 2 % 06/24/2024 10:28 AM SKILLED NURSING CASE MANAGER [facility] % Immature Granulocytes 1 % 06/24/2024 10:28 AM SKILLED NURSING CASE MANAGER [facility] NRBCs per 100 WBC 5(H) <1 /100 025 10:28 AM SKILLED NURSING CASE MANAGER [facility] Absolute Neutrophils 4.8 1.6 - 8.3 10e3/uL 06/24/2024 10:28 AM SKILLED NURSING CASE MANAGER [facility] Absolute Lymphocytes 2.1 0.8 - 5.3 10e3/uL 06/24/2024 10:28 AM SKILLED NURSING CASE MANAGER [facility] Absolute Monocytes 0.7 0.0 - 1.3 10e3/uL 06/24/2024 10:28 AM SKILLED NURSING CASE MANAGER [facility] Absolute Eosinophils 0.1 0.0 - 0.7 10e3/uL 06/24/2024 10:28 AM SKILLED NURSING CASE MANAGER [facility] Absolute Basophils 0.1 0.0 - 0.2 10e3/uL 06/24/2024 10:28 AM SKILLED NURSING CASE MANAGER [facility] Absolute Immature Granulocytes 0.1 <=0.4 10e3/uL 06/24/2024 10:28 AM SKILLED NURSING CASE MANAGER [facility] Absolute NRBCs 0.4 10e3/uL 06/24/2024 10:28 AM SKILLED NURSING CASE MANAGER [facility] Blood BLOOD SPECIMEN / Unknown Venipuncture / Unknown 06/24/2024 10:11 AM SKILLED NURSING CASE MANAGER 06/24/2024 10:22 AM SKILLED NURSING CASE MANAGER Richar Mahajan MD LAB - BLOOD ORDERABLES Liss l Result [facility] [place] [facility] [address] [facility], [address] * (ABNORMAL) Reticulocyte count (06/24/2024 10:11 AM SKILLED NURSING CASE MANAGER) Only the most recent of21 resultswithin the time period is included. % Reticulocyte 11.2(H) 0.5 - 2.0 % 06/24/2024 10:28 AM SKILLED NURSING CASE MANAGER [facility] Absolute Reticulocyte 0.280(H) 0.025 - 0.095 10e6/uL 06/24/2024 10:28 AM SKILLED NURSING CASE MANAGER [facility] Blood BLOOD SPECIMEN / Unknown Venipuncture / Unknown 06/24/2024 10:11 AM SKILLED NURSING CASE MANAGER 06/24/2024 10:22 AM SKILLED NURSING CASE MANAGER Richar Mahajan MD LAB - BLOOD ORDERABLES Liss l Result [facility] [place] [facility] [address] [facility], [address] [place] [address] * (ABNORMAL) INR (06/24/2024 10:11 AM SKILLED NURSING CASE MANAGER) Only the most recent of3 resultswithin the time period is included. INR 1.45(H) 0.85 - 1.15 06/24/2024 10:54 AM SKILLED NURSING CASE MANAGER [facility] Blood BLOOD SPECIMEN / Unknown Venipuncture / Unknown 06/24/2024 10:11 AM SKILLED NURSING CASE MANAGER 06/24/2024 10:21 AM SKILLED NURSING CASE MANAGER us Richar Mahajan MD LAB - BLOOD ORDERABLES Liss l Result LABORATORY [facility] Core Lab [address] [facility], [address] * Partial thromboplastin time (06/24/2024 10:11 AM SKILLED NURSING CASE MANAGER) aPTT 32 22 - 38 Seconds 06/24/2024 10:55 AM SKILLED NURSING CASE MANAGER [facility] Blood BLOOD SPECIMEN / Unknown Venipuncture / Unknown 06/24/2024 10:11 AM SKILLED NURSING CASE MANAGER 06/24/2024 10:21 AM SKILLED NURSING CASE MANAGER us Richar Mahajan MD LAB - BLOOD ORDERABLES Liss l Result LABORATORY [facility] Lab [address] [facility], [address] * Magnesium (06/24/2024 10:11 AM SKILLED NURSING CASE MANAGER) Magnesium 2.1 1.7 - 2.3 mg/dL 06/24/2024 10:51 AM SKILLED NURSING CASE MANAGER [facility] Blood BLOOD SPECIMEN / Unknown Venipuncture / Unknown 06/24/2024 10:11 AM SKILLED NURSING CASE MANAGER 06/24/2024 10:21 AM SKILLED NURSING CASE MANAGER us Richar Mahajan MD LAB - BLOOD ORDERABLES Liss l Result [facility] [place] [facility] [address] [facility], [address] * HCG qualitative Blood (06/24/2024 10:11 AM SKILLED NURSING CASE MANAGER) Only the most recent of6 resultswithin the time period is included. hCG Serum Qualitative Negative Negative JARET 06/24/2024 10:33 AM SKILLED NURSING CASE MANAGER [facility] Comment:This test is for scr eening purposes. Results should be interpreted along with the clinical picture. Confirmation testing is available if warranted by ordering [id number], HCG Quantitative . Blood BLOOD SPECIMEN / Unknown Venipuncture / Unknown 06/24/2024 10:11 AM SKILLED NURSING CASE MANAGER 06/24/2024 10:20 AM SKILLED NURSING CASE MANAGER Richar Mahajan MD LAB - BLOOD ORDERABLES Liss l Result LABORATORY [facility] [place] [facility] [address] [facility], [address] * (ABNORMAL) Comprehensive metabolic panel (06/24/2024 10:11 AM SKILLED NURSING CASE MANAGER) Only the most recent of12 resultswithin the time period is included. Pathologist [facility] Sodium 138 135 - 145 mmol/L 06/24/2024 10:51 AM SKILLED NURSING CASE MANAGER [facility] Potassium 4.3 3.4 - 5.3 mmol/L 06/24/2024 10:51 AM SKILLED NURSING CASE MANAGER [facility] Carbon Dioxide (CO2) 20(L) 22 - 29 mmol/L 06/24/2024 10:51 AM SKILLED NURSING CASE MANAGER [facility] Anion Gap 10 7 - 15 mmol/L 06/24/2024 10:51 AM SKILLED NURSING CASE MANAGER [facility] Urea Nitrogen 9.9 6.0 - 20.0 mg/dL 06/24/2024 10:51 AM SKILLED NURSING CASE MANAGER [facility] Creatinine 0.62 0.51 - 0.95 mg/dL 06/24/2024 10:51 AM SKILLED NURSING CASE MANAGER [facility] GFR Estimate >90 >60 mL/min/1.7 3m2 06/24/2024 10:51 AM SKILLED NURSING CASE MANAGER [facility] Comment:eGFR calculated us2020 CKD-EPI equation. Calcium 8.7(L) 8.8 - 10.4 mg/dL 06/24/2024 10:51 AM SKILLED NURSING CASE MANAGER [facility] Chloride 108(H) 98 - 107 mmol/L 06/24/2024 10:51 AM SKILLED NURSING CASE MANAGER [facility] Glucose 98 70 - 99 mg/dL 06/24/2024 10:51 AM SKILLED NURSING CASE MANAGER [facility] Alkaline Phosphatase 119 40 - 150 U/L 06/24/2024 10:51 AM SKILLED NURSING CASE MANAGER [facility] AST 57(H) 0 - 45 U/L 06/24/2024 10:51 AM SKILLED NURSING CASE MANAGER [facility] ALT 53(H) 0 - 50 U/L 06/24/2024 10:51 AM SKILLED NURSING CASE MANAGER [facility] Protein Total 7.4 6.4 - 8.3 g/dL 06/24/2024 10:51 AM SKILLED NURSING CASE MANAGER [facility] Albumin 4.0 3.5 - 5.2 g/dL 06/24/2024 10:51 AM SKILLED NURSING CASE MANAGER [facility] Bilirubin Total 1.1 <=1.2 mg/dL 06/24/2024 10:51 AM SKILLED NURSING CASE MANAGER [facility] Blood BLOOD SPECIMEN / Unknown Venipuncture / Unknown 06/24/2024 10:11 AM SKILLED NURSING CASE MANAGER 06/24/2024 10:21 AM SKILLED NURSING CASE MANAGER us Richar Mahajan MD LAB - BLOOD ORDERABLES Liss plaza Result [facility] [place] [facility] [address] [facility], [address] [place] [id number] * (ABNORMAL) Manual Differential (06/23/2024 6:22 PM SKILLED NURSING CASE MANAGER) Only the most recent of2 resultswithin the time period is included. % Neutrophils 73 % 06/23/2024 7:05 PM SKILLED NURSING CASE MANAGER [facility] % Lymphocytes 24 % 06/23/2024 7:05 PM SKILLED NURSING CASE MANAGER [facility] % Monocytes 2 % 06/23/2024 7:05 PM SKILLED NURSING CASE MANAGER [facility] % Eosinophils 0 % 06/23/2024 7:05 PM SKILLED NURSING CASE MANAGER [facility] % Basophils 2 % 06/23/2024 7:05 PM SKILLED NURSING CASE MANAGER [facility] NRBCs per 100 WBC 12(H) <=0 % 06/23/2024 7:05 PM SKILLED NURSING CASE MANAGER [facility] Absolute Neutrophils 7.2 1.6 - 8.3 10e3/uL 06/23/2024 7:05 PM SKILLED NURSING CASE MANAGER [facility] Absolute Lymphocytes 2.3 0.8 - 5.3 10e3/uL 06/23/2024 7:05 PM SKILLED NURSING CASE MANAGER [facility] Absolute Monocytes 0.2 0.0 - 1.3 10e3/uL 06/23/2024 7:05 PM SKILLED NURSING CASE MANAGER [facility] Absolute Eosinophils 0.0 0.0 - 0.7 10e3/uL 06/23/2024 7:05 PM SKILLED NURSING CASE MANAGER [facility] Absolute Basophils 0.2 0.0 - 0.2 10e3/uL 06/23/2024 7:05 PM SKILLED NURSING CASE MANAGER [facility] Absolute NRBCs 1.2(H) <=0.0 10e3/uL 025 7:05 PM SKILLED NURSING CASE MANAGER [facility] RBC Morphology Confirmed RBC Indices 06/23/2024 7:05 PM SKILLED NURSING CASE MANAGER [facility] Platelet Assessment Automated Count Confirmed. Platelet morphology is normal. Automated Count Confirmed. Platelet morphology is normal. 06/23/2024 7:05 PM SKILLED NURSING CASE MANAGER [facility] Polychromasia Slight(A) None Seen 06/23/2024 7:05 PM SKILLED NURSING CASE MANAGER [facility] Sickle Cells Slight(A) None Seen 06/23/2024 7:05 PM SKILLED NURSING CASE MANAGER [facility] Target Cells Slight(A) None Seen 06/23/2024 7:05 PM SKILLED NURSING CASE MANAGER [facility] Blood BLOOD SPECIMEN / Unknown Venipuncture / Unknown 06/23/2024 6:22 PM SKILLED NURSING CASE MANAGER 06/23/2024 6:34 PM SKILLED NURSING CASE MANAGER us Dayna Crane MD LAB - BLOOD ORDERABLES Final Re sult [facility] [place] [facility] [address] [facility], [address] [place] [id number], [facility] * (ABNORMAL) Lactate Dehydrogenase (06/20/2024 5:48 AM SKILLED NURSING CASE MANAGER) Only the most recent of4 resultswithin the time period is included. Lactate Dehydrogenase 571(H) 0 - 250 U/L 06/20/2024 6:35 AM SKILLED NURSING CASE MANAGER [facility] Blood (Portacath) IVAD (Port) / Unknown 06/20/2024 5:48 AM SKILLED NURSING CASE MANAGER 06/20/2024 5:55 AM SKILLED NURSING CASE MANAGER Polly Allen MD LAB - BLOOD ORDER SYD Final Result [facility] [place] [facility] [address] [facility], [address] [place] [address] * (ABNORMAL) RBC and Platelet Morphology (06/19/2024 9:30 AM SKILLED NURSING CASE MANAGER) Only the most recent of14 resultswithin the time period is included. RBC Morphology Confirmed RBC Indices 06/19/2024 11:43 AM SKILLED NURSING CASE MANAGER [facility] Platelet Assessment Automated Count Confirmed. Giant platelets are present.(A) Automated Count Confirmed. Platelet morphology is normal. 06/19/2024 11:43 AM SKILLED NURSING CASE MANAGER [facility] Giant Platelets Slight(A) None Seen 11:43 AM SKILLED NURSING CASE MANAGER [facility] Elliptocytes None Seen None Seen 06/19/2024 11:43 AM SKILLED NURSING CASE MANAGER [facility] Polychromasia Slight(A) None Seen 06/19/2024 11:43 AM SKILLED NURSING CASE MANAGER [facility] RBC Fragments Slight(A) None Seen 06/19/2024 11:43 AM SKILLED NURSING CASE MANAGER [facility] Reactive Lymphocytes Present(A) None Seen 06/19/2024 11:43 AM SKILLED NURSING CASE MANAGER [facility] Sickle Cells Moderate(A) None Seen 06/19/2024 11:43 AM SKILLED NURSING CASE MANAGER [facility] Smudge Cells Present(A) None Seen 06/19/2024 11:43 AM SKILLED NURSING CASE MANAGER [facility] Target Cells Moderate(A) None Seen 06/19/2024 11:43 AM SKILLED NURSING CASE MANAGER [facility] Blood CENTRAL VENOUS CATHETER / Unknown VAD(CVC, PICC) / Unknown 06/19/2024 9:30 AM SKILLED NURSING CASE MANAGER 06/19/2024 9:42 AM SKILLED NURSING CASE MANAGER Polly Allen MD LAB - BLOOD ORDER SYD Final Result LABORATORY [facility] [place] [facility] [address] [facility], [address] [phone] * (ABNORMAL) Platelet count (06/19/2024 12:17 AM SKILLED NURSING CASE MANAGER) Platelet Count 467(H) 150 - 450 10e3/uL 06/19/2024 12:44 AM SKILLED NURSING CASE MANAGER [facility] Blood BLOOD SPECIMEN / Unknown Venipuncture / Unknown 06/19/2024 12:17 AM SKILLED NURSING CASE MANAGER 06/19/2024 12:26 AM SKILLED NURSING CASE MANAGER Laquita Kelley MD LAB - BLOOD ORDERABLES Final Re sult LABORATORY [facility] Core Lab [address] [facility], [address] [phone] * Creatinine (06/19/2024 12:17 AM SKILLED NURSING CASE MANAGER) Creatinine 0.72 0.51 - 0.95 mg/dL 06/19/2024 12:51 AM SKILLED NURSING CASE MANAGER [facility] GFR Estimate >90 >60 mL/min/1.7 3m2 06/19/2024 12:51 AM SKILLED NURSING CASE MANAGER [facility] Comment:eGFR calculated 2020 CKD-EPI equation. Blood BLOOD SPECIMEN / Unknown Venipuncture / Unknown 06/19/2024 12:17 AM SKILLED NURSING CASE MANAGER 06/19/2024 12:26 AM SKILLED NURSING CASE MANAGER Laquita Kelley MD LAB - BLOOD ORDERABLES Final Re sult LABORATORY [facility] [place] [facility] [address] [facility], [address] [phone] * Transfuse red blood cells (unit), Sickle Cell (Hgb S) Negative (06/17/2024 2:33 PM SKILLED NURSING CASE MANAGER) Only the most recent of2 resultswithin the time period is included. us Drake Nina MD BLOOD TRANSFUSION ORDERABLES Final Result * Prepare red blood cells (unit) (06/17/2024 9:12 AM SKILLED NURSING CASE MANAGER) Only the most recent of2 resultswithin the time period is included. Blood Component Type Red Blood Cells [facility] Product Code [id number] [facility] Unit Status Transfused [facility] Unit Number [id number] [facility] B LOOD BANK CROSSMATCH COMPATIBLE [facility] BLOOD BANK CODING SYSTEM [id number] [facility] BLO OD BANK ISSUE DATE AND TIME [id number] [facility] BLOOD BANK UNIT ABO/RH A+ [facility] BLOOD BANK UNIT TYPE ISBT 6200 [facility] BL OOD BANK 06/17/2024 9:12 AM SKILLED NURSING CASE MANAGER us Drake Nina MD BLOOD BANK PRODUCT ORDERABLES Final Result Performing Organization Address City/[facility] Co de Phone Number BLOOD BANK [address] [place] [address] * (ABNORMAL) Transferrin (06/17/2024 6:16 AM SKILLED NURSING CASE MANAGER) Pathologist [facility] Transferrin 100.0(L) 200.0 - 360.0 mg/dL 06/17/2024 9:36 AM SKILLED NURSING CASE MANAGER [facility] Blood VENOUS LINE / Unknown IVAD (Port) / Unknown 06/17/2024 6:16 AM SKILLED NURSING CASE MANAGER 06/17/2024 6:27 AM SKILLED NURSING CASE MANAGER us Drake Nina MD LAB - BLOOD ORDERABLES Final Result [facility]ORATORY [facility] [place] [facility] [address] [facility], [address] [place] [phone] * Iron and iron binding capacity (06/17/2024 6:16 AM SKILLED NURSING CASE MANAGER) [facility] Iron 123 37 - 145 ug/dL 06/17/2024 10:02 AM SKILLED NURSING CASE MANAGER [facility] Iron Binding Capacity 06/17/2024 10:02 AM SKILLED NURSING CASE MANAGER [facility] Comment:Unable to calculate: UIBC or Iron value is outside detectable level. Iron Sat Index 06/17/2024 10:02 AM SKILLED NURSING CASE MANAGER [facility] Comment:Unable to calculate: UIBC or Iron value is outside detectable level. Blood VENOUS LINE / Unknown IVAD (Port) / Unknown 06/17/2024 6:16 AM SKILLED NURSING CASE MANAGER 06/17/2024 6:27 AM SKILLED NURSING CASE MANAGER Drake Nina MD LAB - BLOOD ORDERABLES Final Result [facility] [place] [facility] [address] [facility], [address] [place] [address] * (ABNORMAL) Basic metabolic panel (06/17/2024 6:16 AM SKILLED NURSING CASE MANAGER) Only the most recent of20 resultswithin the time period is included. Sodium 134(L) 135 - 145 mmol/L 06/17/2024 6:55 AM SKILLED NURSING CASE MANAGER [facility] Potassium 4.6 3.4 - 5.3 mmol/L 06/17/2024 6:55 AM SKILLED NURSING CASE MANAGER [facility] Chloride 105 98 - 107 mmol/L 06/17/2024 6:55 AM SKILLED NURSING CASE MANAGER [facility] Carbon Dioxide (CO2) 20(L) 22 - 29 mmol/L 06/17/2024 6:55 AM SKILLED NURSING CASE MANAGER [facility] Anion Gap 9 7 - 15 mmol/L 06/17/2024 6:55 AM SKILLED NURSING CASE MANAGER [facility] Urea Nitrogen 16.1 6.0 - 20.0 mg/dL 06/17/2024 6:55 AM SKILLED NURSING CASE MANAGER [facility] Creatinine 0.90 0.51 - 0.95 mg/dL 06/17/2024 6:55 AM SKILLED NURSING CASE MANAGER [facility] GFR Estimate 88 >60 mL/min/1.7 3m2 06/17/2024 6:55 AM SKILLED NURSING CASE MANAGER [facility] Comment:eGFR calculated 2020 CKD-EPI equation. Calcium 8.4(L) 8.8 - 10.4 mg/dL 06/17/2024 6:55 AM SKILLED NURSING CASE MANAGER [facility] Glucose 95 70 - 99 mg/dL 06/17/2024 6:55 AM SKILLED NURSING CASE MANAGER [facility] Blood VENOUS LINE / Unknown IVAD (Port) / Unknown 06/17/2024 6:16 AM SKILLED NURSING CASE MANAGER 06/17/2024 6:27 AM SKILLED NURSING CASE MANAGER Laquita Kelley MD LAB - BLOOD ORDERABLES Final Re sult [facility] [place] [facility] [address] [facility], [address] [phone] * (ABNORMAL) CBC with platelets (06/17/2024 6:16 AM SKILLED NURSING CASE MANAGER) Only the most recent of5 resultswithin the time period is included. Pathologist [facility] WBC Count 14.6(H) 4.0 - 11.0 10e3/uL 06/17/2024 6:38 AM SKILLED NURSING CASE MANAGER [facility] RBC Count 1.97(L) 3.80 - 5.20 10e6/uL 06/17/2024 6:38 AM SKILLED NURSING CASE MANAGER [facility] Hemoglobin 6.3(LL) 11.7 - 15.7 g/dL 06/17/2024 6:38 AM SKILLED NURSING CASE MANAGER [facility] Hematocrit 17.9(L) 35.0 - 47.0 % 06/17/2024 6:38 AM SKILLED NURSING CASE MANAGER [facility] MCV 91 78 - 100 fL 06/17/2024 6:38 AM SKILLED NURSING CASE MANAGER [facility] MCH 32.0 26.5 - 33.0 pg 06/17/2024 6:38 AM SKILLED NURSING CASE MANAGER [facility] MCHC 35.2 31.5 - 36.5 g/dL 06/17/2024 6:38 AM SKILLED NURSING CASE MANAGER [facility] RDW 20.1(H) 10.0 - 15.0 % 06/17/2024 6:38 AM SKILLED NURSING CASE MANAGER [facility] Platelet Count 468(H) 150 - 450 10e3/uL 06/17/2024 6:38 AM SKILLED NURSING CASE MANAGER [facility] Blood VENOUS LINE / Unknown IVAD (Port) / Unknown 06/17/2024 6:16 AM SKILLED NURSING CASE MANAGER 06/17/2024 6:27 AM SKILLED NURSING CASE MANAGER Laquita Kelley MD LAB - BLOOD ORDERABLES Final Re sult [facility] [place] [facility] [address] [facility], [address] [phone] * Troponin T, High Sensitivity (06/16/2024 9:33 PM SKILLED NURSING CASE MANAGER) Only the most recent of10 resultswithin the time period is included. Troponin T, High Sensitivity 8 <=14 ng/L 06/16/2024 10:13 PM SKILLED NURSING CASE MANAGER [facility] Comment: Either a High Sensitivity [...] IVAD (Port) / Unknown 06/16/2024 9:33 PM SKILLED NURSING CASE MANAGER 06/16/2024 9:44 PM SKILLED NURSING CASE MANAGER us Varghese Cipriano Schofield MD LAB - BLOOD ORDERABLE S Final Result U LABORATORY [facility] Core Lab [address] [facility], [address] [phone] * Chest XR, PA & LAT (06/16/2024 6:09 PM SKILLED NURSING CASE MANAGER) Only the most recent of7 resultswithin the time period is included. Anatomical Region Laterality Modality Chest Digital Radiogra phy 06/16/2024 6:09 PM SKILLED NURSING CASE MANAGER Impressions 06/16/2024 6:13 PM SKILLED NURSING CASE MANAGER IMPRESSION: Left chest port catheter in stable position. Stable position of right central venous catheter. No airspace opacity, pleural effusion or pneumothorax. Narrative 06/16/2024 6:13 PM SKILLED NURSING CASE MANAGER EXAM: XR CHEST 2 VIEWS LOCATION: [facility] DATE: 06/16/2024 INDICATION: chest pain COMPARISON: 06/12/2024 Procedure Note Richar Haines MD - 06/16/2024 EXAM: XR CHEST 2 VIEWS LOCATION: [facility] DATE: 06/16/2024 INDICATION: chest pain COMPARISON: 06/12/2024 IMPRESSION: Left chest port catheter in stable position. Stable positionof right central venous catheter. No airspace opacity, pleural effusion orpneumothorax. us Varghesegiulia Schofield MD IMG DIAGNOSTIC IMAGIN G ORDERABLES Final Result * Adult Type and Screen (06/16/2024 5:37 PM SKILLED NURSING CASE MANAGER) Only the most recent of3 resultswithin the time period is included. ABO/RH(D) A POS 06/16/2024 5:08 PM SKILLED NURSING CASE MANAGER [facility] B[facility]OD B[facility] Antibody Screen Negative Negative 06/16/2024 5:08 PM SKILLED NURSING CASE MANAGER U BLOOD BANK Comment:Current antibody scr een is negative. Patient has a history of antibody(ies). A delay in compatible red blood cells may occur. SPECIMEN EXPIRATION DATE [id number] 06/16/2024 5:08 PM SKILLED NURSING CASE MANAGER U BLOOD BANK Blood BLOOD SPECIMEN / Unknown Venipuncture / Unknown 06/16/2024 5:37 PM SKILLED NURSING CASE MANAGER 06/16/2024 5:46 PM SKILLED NURSING CASE MANAGER us Varghese Cipriano Schofield MD LAB - BLOOD BANK TEST ORDER Final Result U BLOOD BANK [address] [place] [address] * (ABNORMAL) Prolactin (06/16/2024 5:37 PM SKILLED NURSING CASE MANAGER) Prolactin 55(H) 5 - 23 ng/mL 06/16/2024 6:24 PM SKILLED NURSING CASE MANAGER [facility] Blood BLOOD SPECIMEN / Unknown Venipuncture / Unknown 06/16/2024 5:37 PM SKILLED NURSING CASE MANAGER 06/16/2024 5:46 PM SKILLED NURSING CASE MANAGER us Varghese Alevism Schofield MD LAB - BLOOD ORDERABLE S Final Result U [facility]ORATORY [facility] [place] [facility] [address] [facility], [address] [place] [phone] [place] [address] * Blood Culture Peripheral Blood (06/16/2024 5:37 PM SKILLED NURSING CASE MANAGER) Only the most recent of3 resultswithin the time period is included. Culture No Growth 06/21/2024 6:47 PM SKILLED NURSING CASE MANAGER [facility] Blood BLOOD SPECIMEN / Unknown Venipuncture / Unknown 06/16/2024 5:37 PM SKILLED NURSING CASE MANAGER 06/16/2024 5:47 PM SKILLED NURSING CASE MANAGER us Varghesegiulia Schofield MD LAB - MICRO GENERAL O RDERABLES Final Result Performing Organization Address [facility] Co de Phone Number U [facility]D LABORATORY [facility] Inf. Diseases Diag. Lab [address] [facility], [address] [place] [phone] [place] [address] * EKG 12 lead (06/16/2024 4:55 PM SKILLED NURSING CASE MANAGER) Only the most recent of2 resultswithin the time period is included. Systolic Blood Pressure mmHg RADIOLOGY RESULTS Diastolic Blood Pressure mmHg RADIOLOGY RESULTS Ventricular Rate 122 BPM RAD IOLOGY RESULTS Atrial Rate 122 BPM RADIOLOG Y RESULTS [place] Interval 128 ms RADIOLOG Y RESULTS QRS Duration 74 ms RADIOLO GY RESULTS QT 314 ms RADIOLOGY RESULTS QTc 447 ms RADIOLOGY RESULTS P [place] 63 degrees RADIOLOGY RESULTS R AXIS 83 degrees RADIOLOGY RESULTS T [place] 29 degrees RADIOLOGY RESULTS Interpretation ECG Sinus tachycardia Otherwise normal ECG Unconfirmed report - interpretation of this ECG is computer generated - see medical record for final interpretation Confirmed by - EMERGENCY ROOM, PHYSICIAN ([id number]), videotape editor KARLA WILLIAMSON ([id number]) on 06/17/2024 6:56:59 AM RADIOLOGY RESULTS 06/16/2024 4:55 PM SKILLED NURSING CASE MANAGER 06/17/2024 6:56 AM SKILLED NURSING CASE MANAGER us Abimael Schofield MD ECG ORDERABLES Edite d Result - Final RADIOLOGY RESULTS * XR Chest Port 1 View (06/14/2024 8:46 AM SKILLED NURSING CASE MANAGER) Anatomical Region Laterality Modality Chest Digital Radiogra phy Impressions 06/14/2024 8:59 AM SKILLED NURSING CASE MANAGER Impression: Further increase in ill-defined opacity projecting over the right lower lung concerning for pneumonia. MARIO ALBERTO BLACKWOOD MD Narrative 06/14/2024 8:59 AM SKILLED NURSING CASE MANAGER Exam: XR CHEST PORT 1 VIEW, 06/14/2024 [...] * Respiratory Panel PCR (06/12/2024 9:34 PM SKILLED NURSING CASE MANAGER) Adenovirus Not Detected Not Detected 06/12/2024 11:53 PM SKILLED NURSING CASE MANAGER [facility] Coronavirus Not Detected Not Detected 06/12/2024 11:53 PM SKILLED NURSING CASE MANAGER [facility] Comment:This test detects Co ronavirus 229E, HKU1, NL63 and OC43 but does not distinguish between them. It does not detect MERS ( Respiratory Syndrome), SARS (Severe Acute Respiratory Syndrome) or 2019-nCoV (Novel 2019) Coronavirus. Human Metapneumovirus Not Detected Not Detected 06/12/2024 11:53 PM SKILLED NURSING CASE MANAGER [facility] Human Rhin/Enterovirus Not Detected Not Detected 06/12/2024 11:53 PM SKILLED NURSING CASE MANAGER [facility] Influenza A Not Detected Not Detected 06/12/2024 11:53 PM SKILLED NURSING CASE MANAGER [facility] Influenza A, H1 Not Detected Not Detected 06/12/2024 11:53 PM SKILLED NURSING CASE MANAGER [facility] Influenza A 2009 H1N1 Not Detected Not Detected 06/12/2024 11:53 PM SKILLED NURSING CASE MANAGER [facility] Influenza A, H3 Not Detected Not Detected 06/12/2024 11:53 PM SKILLED NURSING CASE MANAGER [facility] Influenza B Not Detected Not Detected 06/12/2024 11:53 PM SKILLED NURSING CASE MANAGER [facility] Parainfluenza Virus 1 Not Detected Not Detected 06/12/2024 11:53 PM SKILLED NURSING CASE MANAGER [facility] Parainfluenza Virus 2 Not Detected Not Detected 06/12/2024 11:53 PM SKILLED NURSING CASE MANAGER [facility] Parainfluenza Virus 3 Not Detected Not Detected 06/12/2024 11:53 PM SKILLED NURSING CASE MANAGER [facility] Parainfluenza Virus 4 Not Detected Not Detected 06/12/2024 11:53 PM SKILLED NURSING CASE MANAGER [facility] Respiratory Syncytial Virus A Not Detected Not Detected 06/12/2024 11:53 PM SKILLED NURSING CASE MANAGER [facility] Respiratory Syncytial Virus B Not Detected Not Detected 06/12/2024 11:53 PM SKILLED NURSING CASE MANAGER [facility] Chlamydia Pneumoniae Not Detected Not Detected 06/12/2024 11:53 PM SKILLED NURSING CASE MANAGER [facility] Mycoplasma Pneumoniae Not Detected Not Detected 06/12/2024 11:53 PM SKILLED NURSING CASE MANAGER [facility] Swab NASOPHARYNGEAL STRUCTURE / Unknown Non-blood Collection / Unknown 06/12/2024 9:34 PM SKILLED NURSING CASE MANAGER 06/12/2024 9:47 PM SKILLED NURSING CASE MANAGER Narrative [facility] - 06/12/2024 11:53 PM SKILLED NURSING CASE MANAGER The ePlex Respiratory Panel is a qualitative nucleic acid, multiplex, in vitro diagnostic test for the simultaneous detection and identification of multiple respiratory viral and bacterial nucleic acids in nasopharyngeal swabs collected in viral transport media from individual exhibiting signs and symptoms of respiratory infection. The assay has received FDA approval for the testing of nasopharyngeal (TEST ENGINE OPERATOR) swabs only. This test is used for clinical purposes and should not be regarded as investigational or for research. This laboratory is certified under the Clinical Laboratory Improvement Amendments of 1988 (CLIA-88) as qualified to perform high complexity clinical laboratory testing. us Abdelrahman Goddard MD LAB - MICRO GENERAL ORDERABLES Final Result [facility] Inf. Diseases Diag. Lab [address] [facility], [address] [place] [address] * (ABNORMAL) Blood gas venous (06/12/2024 7:17 PM SKILLED NURSING CASE MANAGER) pH Venous 7.38 7.32 - 7.43 06/12/2024 7:40 PM SKILLED NURSING CASE MANAGER [facility] pCO2 Venous 42 40 - 50 mm Hg 06/12/2024 7:40 PM SKILLED NURSING CASE MANAGER [facility] pO2 Venous 35 25 - 47 mm Hg 06/12/2024 7:40 PM SKILLED NURSING CASE MANAGER [facility] Bicarbonate Venous 24 21 - 28 mmol/L 06/12/2024 7:40 PM SKILLED NURSING CASE MANAGER [facility] Base Excess/Deficit Venous -0.9 -3.0 - 3.0 mmol/L 06/12/2024 7:40 PM SKILLED NURSING CASE MANAGER [facility] FIO2 21 JARET 06/12/2024 7:40 PM SKILLED NURSING CASE MANAGER [facility] Oxyhemoglobin Venous 61(L) 70 - 75 % 06/12/2024 7:40 PM SKILLED NURSING CASE MANAGER [facility] O2 Sat, Venous 63.9(L) 70.0 - 75.0 % 06/12/2024 7:40 PM SKILLED NURSING CASE MANAGER [facility] Blood, venous VENOUS LINE / Unknown Venipuncture / Unknown 06/12/2024 7:17 PM SKILLED NURSING CASE MANAGER 06/12/2024 7:30 PM SKILLED NURSING CASE MANAGER Narrative [facility] - 06/12/2024 7:40 PM SKILLED NURSING CASE MANAGER In healthy individuals, oxyhemoglobin (O2Hb) and oxygen saturation (SO2) are approximately equal. In the presence of dyshemoglobins, oxyhemoglobin can be considerably lower than oxygen saturation. Abdelrahman Goddard MD LAB - BLOOD ORDERABLES Final R esult [facility] [place] [facility] [address] [facility] [address], [address] [place] [address] * ECG 12-LEAD WITH MUSE (LHE) (06/11/2024 9:04 PM SKILLED NURSING CASE MANAGER) Only the most recent of14 resultswithin the time period is included. Systolic Blood Pressure mmHg RADIOLOGY RESULTS Diastolic Blood Pressure mmHg RADIOLOGY RESULTS Ventricular Rate 102 BPM RAD IOLOGY RESULTS Atrial Rate 102 BPM RADIOLOG Y RESULTS AZ Interval 158 ms RADIOLOG Y RESULTS QRS Duration 78 ms RADIOLO GY RESULTS QT 348 ms RADIOLOGY RESULTS QTc 453 ms RADIOLOGY RESULTS P [place] 39 degrees RADIOLOGY RESULTS R AXIS 66 degrees RADIOLOGY RESULTS T [place] 33 degrees RADIOLOGY RESULTS Interpretation ECG Sinus tachycardia Nonspecific T wave abnormality Abnormal ECG When compared with ECG of 05-Jun-2024 11:40, No significant change was found Confirmed by SEE ED PROVIDER NOTE FOR, ECG INTERPRETATION ([id number]), videotape editor SELMA GARRISON ([id number]) on 06/11/2024 9:05:27 PM RADIOLOGY RESULTS 06/11/2024 9:04 PM SKILLED NURSING CASE MANAGER 06/11/2024 9:05 PM SKILLED NURSING CASE MANAGER us Deshawn Arredondo MD ECG ORDERABLES Edited Resu lt - Final RADIOLOGY RESULTS * Influenza A/B, RSV and SARS-CoV2 PCR (COVID-19) Nasopharyngeal (06/07/2024 1:15 PM SKILLED NURSING CASE MANAGER) Only the most recent of3 resultswithin the time period is included. Influenza A PCR Negative Negative 06/07/2024 3:32 PM SKILLED NURSING CASE MANAGER [facility] Influenza B PCR Negative Negative 06/07/2024 3:32 PM SKILLED NURSING CASE MANAGER [facility] RSV PCR Negative Negative 06/07/2024 3:32 PM SKILLED NURSING CASE MANAGER [facility] SARS CoV2 PCR Negative Negative 06/07/2024 3:32 PM SKILLED NURSING CASE MANAGER [facility] Comment:NEGATIVE: SARS-CoV-2 (COVID-19) RNA not detected, presumed negative. Swab NASOPHARYNGEAL STRUCTURE / Unknown Non-blood Collection / Unknown 06/07/2024 1:15 PM SKILLED NURSING CASE MANAGER 06/07/2024 1:36 PM SKILLED NURSING CASE MANAGER Narrative [facility] - 06/07/2024 3:32 PM SKILLED NURSING CASE MANAGER Testing was performed using the Xpert Xpress CoV2/Flu/RSV Assay on the [employer] GeneXpert Instrument. This test should be ordered [...] management. [facility] These laboratories are certified under the Clinical Laboratory Improvement Amendments of 1988 (CLIA-88) as qualified to perfom high complexity laboratory testing. us Case Samuel MD LAB - MICRO GENERAL ORDER SYD Final Result [facility] Inf. Diseases Diag. Lab [address] [facility], [address] [place] [phone] * HGB Eval Reflex to ELP or RBC Solubility (05/29/2024 11:23 AM SKILLED NURSING CASE MANAGER) Alpha Globin (HBA1 and HBA2) DD Bill Billed 05/31/2024 2:46 PM SKILLED NURSING CASE MANAGER [facility] Comment: Performed By: [facility] [address] [place] [address] Bucket Pusher: Devon Healy MD, PhD CLIA Number: [id number] Blood VENOUS LINE / Unknown IVAD (Port) / Unknown 05/29/2024 11:23 AM SKILLED NURSING CASE MANAGER 05/29/2024 11:30 AM SKILLED NURSING CASE MANAGER us Case Samuel MD LAB CHARGE PERFORMABLES F inal Result [facility] [address] [place] [address], [facility] [phone] * Bill Only- Sickle Solubility Bill (05/29/2024 11:23 AM SKILLED NURSING CASE MANAGER) [facility] Sickle Solubility Reflex Bill Billed 05/31/2024 2:46 PM SKILLED NURSING CASE MANAGER [facility] Comment: Performed By: [facility] [address] [place] [address] Bucket Pusher: Devon Healy MD, PhD CLIA Number: [id number] Blood VENOUS LINE / Unknown IVAD (Port) / Unknown 05/29/2024 11:23 AM SKILLED NURSING CASE MANAGER 05/29/2024 11:30 AM SKILLED NURSING CASE MANAGER us Case Samuel MD LAB CHARGE PERFORMABLES F inal Result Performing Organization Address [facility] Co de Phone Number [facility] [address] [place] [phone], [facility] [phone] * Genotype Red Blood Cell (05/29/2024 11:23 AM SKILLED NURSING CASE MANAGER) [facility] See Scanned Result GENOTYPE RED BLOOD CELL-Scanned 05/31/2024 10:16 AM SKILLED NURSING CASE MANAGER [facility] Blood VENOUS LINE / Unknown IVAD (Port) / Unknown 05/29/2024 11:23 AM SKILLED NURSING CASE MANAGER 05/29/2024 11:29 AM SKILLED NURSING CASE MANAGER us Case Samuel MD LAB - BLOOD ORDERABLES Fi nal Result Performing Organization Address [facility]/[place] [address], [place] [phone] * (ABNORMAL) HGB Eval Reflex to ELP or RBC Solubility (05/29/2024 11:23 AM SKILLED NURSING CASE MANAGER) [facility] Hemoglobin A 15.0(L) 95.0 - 97.9 % 05/31/2024 2:46 PM SKILLED NURSING CASE MANAGER [facility] Hemoglobin A2 3.0 2.0 - 3.5 % 05/31/2024 2:46 PM SKILLED NURSING CASE MANAGER [facility] Hemoglobin F 10.8(H) 0.0 - 2.1 % 05/31/2024 2:46 PM SKILLED NURSING CASE MANAGER [facility] Hemoglobin S 71.2(H) 0.0 - 0.0 % 05/31/2024 2:46 PM SKILLED NURSING CASE MANAGER [facility] Hemoglobin C 0.0 0.0 - 0.0 % 05/31/2024 2:46 PM SKILLED NURSING CASE MANAGER [facility] Hemoglobin E 0.0 0.0 - 0.0 % 05/31/2024 2:46 PM SKILLED NURSING CASE MANAGER [facility] Hemoglobin - Other 0.0 0.0 - 0.0 % 05/31/2024 2:46 PM SKILLED NURSING CASE MANAGER [facility] Hemoglobin Evaluation See Note 05/31/2024 2:46 PM SKILLED NURSING CASE MANAGER [facility] Comment: Impression: Hb S [...] Globin (HBA1 and HBA2) Deletion/Duplication ([facility] test #4505952) should be considered. Hb S/beta-plus thalassemia is typically characterized by more Hb S than Hb A with the presence of microcytosis. If microcytosis is present and Hb S/beta-plus thalassemia is suspected, Beta Globin (HBB) Sequencing ([facility] test #[id number]) is suggested. Hemoglobin analysis should be offered [...] developed and its performance characteristics determined by [employer]. It has not been cleared or approved by the U.S. Food and Drug Administration. This test was performed in a CLIA-certified laboratory and is intended for clinical purposes. Sickle Cell Solubility Reflex Positive(A) 05/31/2024 2:46 PM SKILLED NURSING CASE MANAGER [facility] Comment: INTERPRETIVE INFORMATION: Sickle Cell Solubility Reflex Not Performed: Solubility testing for Hemoglobin S not indicated. 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 Additional charges apply. Conf Previous: Positive for Hemoglobin S by HPLC. Solubility testing performed previously and not repeated with this submission. Hgb Capillary Electrophoresis Reflex Performed 05/31/2024 2:46 PM SKILLED NURSING CASE MANAGER [facility] Comment: INTERPRETIVE INFORMATION: Hgb Capillary Electrophoresis Reflex Not Performed: Confirmation by Capillary Electrophoresis not indicated. Performed: Results confirmed by Capillary Electrophoresis. Additional charges apply. Conf Previous: Capillary Electrophoresis confirmation performed as part of a previous submission. Confirmation not repeated with this submission. Performed By: [facility] [address] [place] [address] Bucket Pusher: Devon Healy MD, PhD CLIA Number: [id number] Blood VENOUS LINE / Unknown IVAD (Port) / Unknown 05/29/2024 11:23 AM SKILLED NURSING CASE MANAGER 05/29/2024 11:30 AM SKILLED NURSING CASE MANAGER Case Samuel MD LAB - BLOOD ORDERABLES Fi nal Result Performing Organization Address [facility]/ZIP Co de Phone Number [facility] [employer] [address] [place] [address] [phone] * (ABNORMAL) Ferritin (05/29/2024 11:23 AM SKILLED NURSING CASE MANAGER) [facility] Ferritin 1,559(H) 6 - 175 ng/mL 05/29/2024 12:43 PM SKILLED NURSING CASE MANAGER [facility] - [facility] Blood VENOUS LINE / Unknown IVAD (Port) / Unknown 05/29/2024 11:23 AM SKILLED NURSING CASE MANAGER 05/29/2024 11:29 AM SKILLED NURSING CASE MANAGER Case Samuel MD LAB - BLOOD ORDERABLES Fi nal Result [facility] - CORE LAB [facility] [place] [address] [facility] 1st [place] [address] * Urine Culture (05/29/2024 11:23 AM SKILLED NURSING CASE MANAGER) Culture <10,000 CFU/mL Mixture of Urogenital Vickie 05/30/2024 9:45 AM SKILLED NURSING CASE MANAGER [facility] Urine URINE SPECIMEN OBTAINED BY CLEAN CATCH PROCEDURE / Unknown Non-blood Collection / Unknown 05/29/2024 11:23 AM SKILLED NURSING CASE MANAGER 05/29/2024 11:41 AM SKILLED NURSING CASE MANAGER us Case Samuel MD LAB - MICRO GENERAL ORDER SYD Final Result [facility] Inf. Diseases Diag. Lab [address] [facility], [address] [place] [address], [place] * (ABNORMAL) Manual Differential (05/29/2024 12:53 AM SKILLED NURSING CASE MANAGER) Only the most recent of7 resultswithin the time period is included. % Neutrophils 54 % JARET 05/29/2024 1:58 AM [facility] % Lymphocytes 34 % JARET 05/29/2024 1:58 AM [facility] % Monocytes 10 % JARET 05/29/2024 1:58 AM [facility] % Eosinophils 1 % JARET 05/29/2024 1:58 AM [facility] % Basophils 1 % JARET 05/29/2024 1:58 AM [facility] Absolute Neutrophils 8.4(H) 1.6 - 8.3 10e3/uL JARET 05/29/2024 1:58 AM [facility] Absolute Lymphocytes 5.3 0.8 - 5.3 10e3/uL JARET 05/29/2024 1:58 AM [facility] Absolute Monocytes 1.6(H) 0.0 - 1.3 10e3/uL JARET 05/29/2024 1:58 AM [facility] Absolute Eosinophils 0.2 0.0 - 0.7 10e3/uL JARET 05/29/2024 1:58 AM [facility] Absolute Basophils 0.2 0.0 - 0.2 10e3/uL JARET 05/29/2024 1:58 AM SKILLED NURSING CASE MANAGER [facility] NRBCs per 100 WBC 3 % [facility] 05/29/2024 1:58 AM SKILLED NURSING CASE MANAGER [facility] Absolute NRBCs 0.5 10e3/uL [facility] 05/29/2024 1:58 AM [facility] RBC Morphology Confirmed RBC Indices [facility] 05/29/2024 1:58 AM [facility] Platelet Assessment Automated Count Confirmed. Platelet morphology is normal. Automated Count Confirmed. Platelet morphology is normal. [facility] 05/29/2024 1:58 AM SKILLED NURSING CASE MANAGER [facility] Polychromasia Moderate(A) None Seen [facility] 05/29/2024 1:58 AM SKILLED NURSING CASE MANAGER [facility] Sickle Cells Moderate(A) None Seen [facility] 05/29/2024 1:58 AM [facility] Blood VENOUS LINE / Unknown Venipuncture / Unknown 05/29/2024 12:53 AM SKILLED NURSING CASE MANAGER 05/29/2024 12:58 AM SKILLED NURSING CASE MANAGER Lenin Smith MD LAB - BLOOD ORDERABLES Final Result Performing Organization Address City/State/[facility] Co de Phone Number [facility] [address] [facility] [address] * IR Procedure Note (05/25/2024 2:54 PM SKILLED NURSING CASE MANAGER) Narrative Myron Michel MD - 05/25/2024 2:54 PM SKILLED NURSING CASE MANAGER Myron Michel MD 05/25/2024 2:55 PM [facility] Procedure: IR Procedure Note Date/Time: 05/25/2024 [...] the procedure a time out was called [place] Protocol: the Joint Commission [place] Protocol was followed Preparation: Patient was prepped and draped in usual sterile fashion ANESTHESIA Anesthesia: Local infiltration Local Anesthetic: Lidocaine 1% without epinephrine SEDATION Patient Sedated: Yes Sedation Type: Moderate (conscious) sedation Sedation: Fentanyl and midazolam Vital signs: Vital signs monitored during sedation See dictated procedure note for full details. Findings: Successful bilateral port placement apheresis on the right, 6 faroese smart port on the left Specimens: none Procedural Complications: None Condition: Stable Plan: 1 hour bedrest then okay to discharge PROCEDURE Describe Procedure: Successful bilateral port placement apheresis on the right, 6 faroese smart port on the left Patient Tolerance: Patient tolerated the procedure well with no immediate complications Length of time physician/provider present for 1:1 monitoring during sedation: 83-97 min us Myron Michel MD PROCEDURE/MINOR SURGICAL ORDERA BLES Final Result * IR Chest Port Placement > 5 Yrs of Age (05/25/2024 2:47 PM SKILLED NURSING CASE MANAGER) Only the most recent of2 resultswithin the time period is included. Anatomical Region Laterality Modality Chest Radio Fluoroscop y Impressions 05/25/2024 5:26 PM SKILLED NURSING CASE MANAGER IMPRESSION: Insertion of right-sided apheresis chest port, [...] mg Versed Sedation time: 97 minutes ATTENDING [id number] SEDATION TIME: less than 5 minutes. Access [...] placed: BD PowerFlow apheresis port Catheter size (Jamaican): 9.6 Lumens: Single-lumen Power injectable: Yes Catheter [...] JASWINDER COOPER MD Narrative 05/25/2024 5:26 PM SKILLED NURSING CASE MANAGER PROCEDURE: Venous port placement Procedural Personnel Attending [...] mg Versed Sedation time: 97 minutes ATTENDING [id number] SEDATION TIME: less than 5 minutes. Access [...] placed: BD PowerFlow apheresis port Catheter size (Jamaican): 9.6 Lumens: Single-lumen Power injectable: Yes Catheter [...] * HCG qualitative urine (05/25/2024 12:03 PM SKILLED NURSING CASE MANAGER) Only the most recent of2 resultswithin the time period is included. hCG Urine Qualitative Negative Negative JARET 05/25/2024 12:34 PM SKILLED NURSING CASE MANAGER [facility] Comment:This test is for scr eening purposes. Results should be interpreted along with the clinical picture. Confirmation testing is available if warranted by ordering [id number], HCG Quantitative . Urine MID-STREAM URINE SPECIMEN / Unknown Non-blood Collection / Unknown 05/25/2024 12:03 PM SKILLED NURSING CASE MANAGER 05/25/2024 12:19 PM SKILLED NURSING CASE MANAGER us Jaswinder Cooper MD LAB - URINE ORDERABLES [place] Result [facility]ORATORY [facility] [place] [facility] [address] [facility], [address] [address] * CT Chest Pulmonary Embolism w Contrast (05/23/2024 9:33 PM SKILLED NURSING CASE MANAGER) Only the most recent of2 resultswithin the time period is included. Anatomical Region Laterality Modality Chest, SUBRAD CT BODY, [facility] CT CHEST Computed Tomography 05/23/2024 9:33 PM SKILLED NURSING CASE MANAGER Impressions 05/23/2024 10:12 PM SKILLED NURSING CASE MANAGER IMPRESSION: 1. Bilateral pulmonary nodules stable since [...] as noted above. Narrative 05/23/2024 10:12 PM SKILLED NURSING CASE MANAGER EXAM: CT CHEST PULMONARY EMBOLISM W CONTRAST LOCATION: [facility] DATE: 05/23/2024 INDICATION: patient with sickle cell. acute chest pain similar to pe in the past. COMPARISON: Chest x-ray 05/22/2024, CTA chest 05/04/2024 and 03/15/2024. Report of CT chest from [facility] from 03/13/2023 is also available. [...] CHEST PULMONARY EMBOLISM W CONTRAST LOCATION: [facility] DATE: 05/23/2024 INDICATION: patient with sickle cell. acute chest pain similar to pe inthe past. COMPARISON: Chest x-ray 05/22/2024, CTA chest 05/04/2024 and 03/15/2024.Report of CT chest from [facility] from 03/13/2023 is alsoavailable. TECHNIQUE: CT [...] terminal pro BNP outpatient (05/23/2024 9:02 PM SKILLED NURSING CASE MANAGER) [facility] N Terminal Pro BNP Outpatient 74 0 - 450 pg/mL 05/23/2024 9:39 PM SKILLED NURSING CASE MANAGER [facility] Comment: Reference range [...] Unknown Venipuncture / Unknown 05/23/2024 9:02 PM SKILLED NURSING CASE MANAGER 05/23/2024 9:10 PM SKILLED NURSING CASE MANAGER Marilia Summers MD LAB - BLOOD ORDERABLES Final Result [facility] [address] [place] [address] * Extra Green Top ([place] Heparin) Tube (05/20/2024 9:09 AM SKILLED NURSING CASE MANAGER) Hold Specimen C 05/20/2024 10:16 AM [facility] Blood VENOUS LINE / Unknown Venipuncture / Unknown 05/20/2024 9:09 AM SKILLED NURSING CASE MANAGER 05/20/2024 9:14 AM SKILLED NURSING CASE MANAGER us Deshawn Arredondo MD LAB - BLOOD ORDERABLES Liss l Result Performing Organization Address [facility] de Phone Number [facility] [address] [place] [address] [address] * (ABNORMAL) Hepatic function panel (05/19/2024 3:05 AM SKILLED NURSING CASE MANAGER) Only the most recent of4 resultswithin the time period is included. [facility] Protein Total 7.9 6.4 - 8.3 g/dL 05/19/2024 3:37 AM [facility] Albumin 4.3 3.5 - 5.2 g/dL 05/19/2024 3:37 AM [facility] Bilirubin Total 2.6(H) <=1.2 mg/dL 05/19/2024 3:37 AM [facility] Alkaline Phosphatase 128 40 - 150 U/L 05/19/2024 3:37 AM [facility] AST 67(H) 0 - 45 U/L 05/19/2024 3:37 AM [facility] ALT 39 0 - 50 U/L 05/19/2024 3:37 AM [facility] Bilirubin Direct 0.65(H) 0.00 - 0.30 mg/dL 05/19/2024 3:37 AM [facility] Blood VENOUS LINE / Unknown Venipuncture / Unknown 05/19/2024 3:05 AM SKILLED NURSING CASE MANAGER 05/19/2024 3:18 AM SKILLED NURSING CASE MANAGER us Marilia Summers MD LAB - BLOOD ORDERABLES Final Result Performing Organization Address [facility] Co de Phone Number [facility] [address] [place] [address] Dr. [place] [address], [facility] * (ABNORMAL) CK total (05/19/2024 3:05 AM SKILLED NURSING CASE MANAGER) CK 240(H) 26 - 192 U/L 05/19/2024 3:37 AM SKILLED NURSING CASE MANAGER [facility] Blood VENOUS LINE / Unknown Venipuncture / Unknown 05/19/2024 3:05 AM SKILLED NURSING CASE MANAGER 05/19/2024 3:18 AM SKILLED NURSING CASE MANAGER Marilia Summers MD LAB - BLOOD ORDERABLES Final Result Performing Organization Address [facility] Co de Phone Number [address] [place] [address], [facility] * Extra Purple Top Tube (05/13/2024 6:17 PM SKILLED NURSING CASE MANAGER) Hold Specimen JIC 05/13/2024 7:31 PM SKILLED NURSING CASE MANAGER [facility] Blood STRUCTURE OF RIGHT UPPER LIMB / Unknown Venipuncture / Unknown 05/13/2024 6:17 PM SKILLED NURSING CASE MANAGER 05/13/2024 6:23 PM SKILLED NURSING CASE MANAGER us Shaheen Unger MD LAB - BLOOD ORDERABLES Final Res ult Performing Organization Address [facility] Co de Phone Number [facility] [address] [place] [address] [address] [place] [address], [facility] * (ABNORMAL) Vitamin D deficiency screening (04/28/2024 1:50 AM SKILLED NURSING CASE MANAGER) Vitamin D, Total (25-Hydroxy) 8(L) 20 - 50 ng/mL 05/01/2024 6:42 PM SKILLED NURSING CASE MANAGER [facility] Comment:severe deficiency Blood BLOOD SPECIMEN / Unknown Venipuncture / Unknown 04/28/2024 1:50 AM SKILLED NURSING CASE MANAGER 04/28/2024 1:53 AM SKILLED NURSING CASE MANAGER Narrative [facility] - 05/01/2024 6:42 PM SKILLED NURSING CASE MANAGER Season, race, dietary intake, and treatment affect the concentration of 15-ihwzapm-Sxmddzm D. Values may decrease during winter months and increase during summer months. Vitamin D determination is routinely performed by an immunoassay specific for 25 hydroxyvitamin D3. If an individual is on vitamin D2(ergocalciferol) supplementation, please specify 25 [place] vitamin D2 and D3 level determination by LCMSMS test VITD23. us Case Samuel MD LAB - BLOOD ORDERABLES Fi nal Result LABORATORY [facility] [place] [facility] [address] [facility], [address] [place] [address] * CT Pelvis Bone wo Contrast (04/19/2024 3:22 AM SKILLED NURSING CASE MANAGER) Anatomical Region Laterality Modality Abdomen/Pelvis, SUBRAD CT MS K, P CT ABDOMEN PELVIS, SUBRAD CT BODY, RAD CT Computed Tomography 04/19/2024 3:22 AM SKILLED NURSING CASE MANAGER Impressions 04/19/2024 4:06 AM SKILLED NURSING CASE MANAGER IMPRESSION: 1. Sclerosis involving the left femoral [...] right femoral head. Narrative 04/19/2024 4:06 AM SKILLED NURSING CASE MANAGER EXAM: CT PELVIS BONE WO CONTRAST LOCATION: [facility] DATE: 04/19/2024 INDICATION: Eval L hip pain, [...] CT PELVIS BONE WO CONTRAST LOCATION: [facility] DATE: 04/19/2024 INDICATION: Eval L hip pain, [...] Extra Red Top Tube (04/08/2024 10:22 PM SKILLED NURSING CASE MANAGER) Hold Specimen [facility] 04/08/2024 11:31 PM SKILLED NURSING CASE MANAGER [facility] Blood STRUCTURE OF LEFT UPPER LIMB / Unknown Venipuncture / Unknown 04/08/2024 10:22 PM SKILLED NURSING CASE MANAGER 04/08/2024 10:30 PM SKILLED NURSING CASE MANAGER Deshawn Arredondo MD LAB - BLOOD ORDERABLES Liss l Result [facility] [address] [place], [place] [address] [address] * Extra Blue Top Tube (04/08/2024 10:22 PM SKILLED NURSING CASE MANAGER) Hold Specimen [facility] 04/08/2024 11:31 PM SKILLED NURSING CASE MANAGER [facility] Blood STRUCTURE OF LEFT UPPER LIMB / Unknown Venipuncture / Unknown 04/08/2024 10:22 PM SKILLED NURSING CASE MANAGER 04/08/2024 10:30 PM SKILLED NURSING CASE MANAGER Deshawn Arredondo MD LAB - BLOOD ORDERABLES Liss l Result Performing Organization Address City/[facility]/ZIP Co de Phone Number [facility] [address] [place], [place] [address] * (ABNORMAL) D dimer quantitative (04/06/2024 12:45 AM SKILLED NURSING CASE MANAGER) D-Dimer Quantitative 1.25(H) 0.00 - 0.50 ug/mL FEU 04/06/2024 1:06 AM SKILLED NURSING CASE MANAGER [facility] Blood BLOOD SPECIMEN / Unknown Venipuncture / Unknown 04/06/2024 12:45 AM SKILLED NURSING CASE MANAGER 04/06/2024 12:52 AM SKILLED NURSING CASE MANAGER Narrative [facility] - 04/06/2024 1:06 AM SKILLED NURSING CASE MANAGER This D-dimer assay is intended for use in conjunction with a clinical pretest probability assessment model to exclude pulmonary embolism (PE) and deep venous thrombosis (DVT) in outpatients suspected of PE or DVT. The cut-off value is 0.50 ug/mL FEU. Guille Alex Davis DO LAB - BLOOD ORDERABLES Fin al Result [facility] [address] [place] [address], [facility] from Last 3 Months [place] [id number] [place] Advance [place] For more information, please contact: [phone] * Full Code (Latest Code Status on [...] patie nt/ legal decision maker Care Teams Christmas Tree Farmer Relationship Specialty Start Date End Date Veronica Joseph MD [address] [place] [address] PCP - General Family Medicine 06/18/24 Mor Ramsey Medical Student 04/03/24 Case Samuel MD [address] [place] [address] [address] [place] [address] Assigned Pediatric Specialist Provider 05/18/24 Juhi Benson, RN Specialty Antenna Machine Operator Hematology & Oncology 05/29/24
--- OUTSIDE RECORDS SUMMARY | 2024-06-25 16:18 | XMS_ITS | Encounter Summary ---
Author Organization [place] Address [address] [place] [address]. [place] [address] Care Team Providers Care Mobility Scooter Repairer Name Role Phone Roxy Mor Unavailable Unavailable Case Samule MD Unavailable [phone] Juhi Benson RN Unavailable Unavailable Veronica Joseph MD Primary Care Provider [phone] Encounter Details Date Type Department Care Team [...] on file Legal Sex Female 8:25 AM BEAUTY DIRECTOR Gender Identity Not on file Sexual Orientation Not on file documented as of this encounter Plan of Treatment Not on file documented as of this encounter Goals Goal Patient Goal Type Associated Problems Recent Progress Patient-Stated? Author Pain Management General On track( 025 12:40 PM BEAUTY DIRECTOR) Yes Juhi Benson RN Note: Goal [...] on filedocumented in this encounter Care Teams Mobility Scooter Repairer Relationship Specialty Start Date End Date Veronica Joseph MD [address] [place] [address] PCP - General Family Medicine 06/18/24 Mor Ramsey Medical Student 04/03/24 Case Samuel MD [address] [place] [address] [address], [address] [place] [address] Assigned Pediatric Specialist Provider 05/18/24 Juhi Benson, RN Specialty Wiping Cloth Cutter Hematology & Oncology 05/29/24 documented as of this encounter
[2024-06-25] MEDS: HEPARIN 500 UNIT/5 ML SYRINGE IVF (16:55)
== END 2024-06-25 16:50 | disposition home or self-care (01) ==
LOC: ED 16:09
PROVIDERS: Emergency Provider Family Medicine
DX: D57.219 Sickle-cell/Hb-C disease with crisis, unspecified (principal)
CPT/HCPCS: 36415; 80048; 85025; 96374; 96375; 96376; 99283; 99284; J1171; J1200; J1642; J2405; J7120

== ENCOUNTER 2024-06-30 22:26 | Emergency (ER) | payer BC, SELFPAY ==
--- OUTSIDE RECORDS SUMMARY | 2024-06-30 22:30 | XMS_ITS | Encounter Summary ---
Author Organization [place] Address [address] [place] [address]. [place] [address] Care Team Providers Care Solar Installer Name Role Phone RoxyElvirac Unavailable Unavailable Case Samuel MD Unavailable [phone] Juhi Benson RN Unavailable Unavailable Veronica Joseph MD Primary Care Provider [phone] Reason for Visit * Reason Onset Date Comments Refill Request 06/29/2024 Encounter Details Date Type Department Care Team (Late st Contact Info) Description 06/29/[address] [place] [address] Case Samuel MD [address] [place] [address] [address], [address] [place], [place] [id number] Refill Request Social History Tobacco Use Types [...] in an overnight retirement, or couch-surfing.) Yes 06/20/2024 Are you worried [...] on file Legal Sex Female 8:25 AM PLATE MAKER Gender Identity Not on file Sexual Orientation Not on file documented as of this encounter Miscellaneous Notes * Telephone Encounter - Juliana Watts RN - 06/29/2024 11:15 AM CST Narcotic Refill Request Medication(s) requested: Hydromorphone 2mg tab Person Requesting Refill: Gianna What pain is the medication treating: sickle cell pain How is the medication being taken?: as needed Does pt have enough for today? no Is pain being adequately controlled on the current regimen?: yes Experiencing any side effects from medication?: no Date of most recent appointment: 05/29/24 Any No Show Visits: none Next appointment: nothing scheduled Last fill date and by whom: 06/15/[address] Samuel UNIT MANAGER [employer] Reviewed: no access Send to provider: Dr. Samuel and ESTEVAN Reynaga. E MAKER documented in this encounter Plan of Treatment Upcoming Encounters Date Type Department Care Team (Late st Contact Info) Description 07/10/2024 11:30 AM CDT Oncology Visit [facility] [address] [place] [address] Case Samuel MD [address] [place] [address] documented as of this encounter Goals Goal Patient Goal Type Associated Problems Recent Progress Patient-Stated? Author Pain Management General On track( 025 12:40 PM PLATE MAKER) Yes Juhi Benson, RN Note: Goal [...] crisis documented in this encounter Care Teams Solar Installer Relationship Specialty Start Date End Date Veronica Joseph MD [address] [place] [address] PCP - General Family Medicine 06/18/24 Mor Ramsey Medical Student 04/03/24 Case Samuel MD [address] [place] [address] Assigned Pediatric Specialist Provider 05/18/24 Juhi Benson, RN Specialty Delivery Driver/Customer Service Hematology & Oncology 05/29/24 documented as of this encounter
--- OUTSIDE RECORDS SUMMARY | 2024-06-30 22:30 | XMS_ITS | Encounter Summary ---
Author Organization [facility] Address [address] [place] [address] Care Team Providers Care Hand I Thermal Cutter Name Role Phone No Ref-Primary, Physician Primary Care Provider Mor Ramsey Unavailable Unavailable Case Samuel MD Unavailable [phone] Reason for Referral * Diagnostic Imaging MRI (Routine) - Pending Review Specialty Diagnoses / Procedures Referred By Shahid pendleton Referred To Contact Radiology. 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 If you don't hear from a customer service representative within 2 business days, please call . Additional Information: History of hemoglobin SS disease. History of retinopathy reported from care in [place] but not in a long time. Requesting eye exam for retinopathy Comments Please be aware that coverage of these services is subject to the terms and limitations of your health insurance plan. Call member services at your health plan with any benefit or coverage questions. [email or web address] [facility] will call you to coordinate your care as prescribed by your provider. If you don't hear from a customer service representative within 2 business days, please call . 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 Requesting eval for further management per ortho's expertise. Scheduling Instructions: [facility] It Senior Software Engineer Java will call you to coordinate your care as prescribed by your provider. A customer service representative will call you within 2 business days to help you schedule your appointment, or you may contact the It Senior Software Engineer Java Elastic Attacher Overlock at: . Comments Please be aware that coverage of these services is subject to the terms and limitations of your health insurance plan. Call member services at your health plan with any benefit or coverage questions. [facility] It Senior Software Engineer [employer] will call you to coordinate your care as prescribed by your provider. A customer service representative will call you within 2 business days to help you schedule your appointment, or you may contact the It Senior Software Engineer Java Elastic Attacher Overlock at: . 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 If you don t hear from a customer service representative within 2 business days, please call . Additional Information: History of symptomatic gallstones due to sickle cell disease. Previous workup in [place], [place] ([facility]PLAC[facility] BY [facility]) prior to moving here. Was moving towards cholecystectomy but ended up moving sooner. Requesting eval for gallstones. Comments Please be aware that coverage of these services is subject to the terms and limitations of your health insurance plan. Call member services at your health plan with any benefit or coverage questions. [employer] will call you to coordinate your care as prescribed by the provider. If you don t hear from a customer service representative within 2 business days, please call . O ELECTRONICS OFFICER Reason for Visit * Reason Comments Oncology Clinic Visit Sickle cell pain c risis * Consultation (Urgent: 3-5 Days) - Pending Review Specialty Diagnoses / Procedures Referred By Contac t Referred To Contact Medical Oncology Diagnoses 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 (H) Mor Ramsey Referral ID Status Reason Start Date Expiration Date V isits Requested Visits Authorized [id number] Pending Review 03/28/2024 03/28/2025 1 1 Encounter Details Date Type Department Care Team (Late st Contact Info) Description 05/01/2024 11:00 AM RADIO ELECTRONICS OFFICER Oncology Visit [facility] [address] [place] [address] Case Samuel MD [address] [facility] [address], [address] [place] [address] History of transfusion (Primary Dx); [...] file Legal Sex Female 8:25 AM RADIO ELECTRONICS OFFICER Gender Identity Not on file Sexual Orientation Not on file documented as of this encounter Last Filed Vital Signs Vital Sign Reading Time Taken Comments Blood Pressure 93/62 05/01/2024 10:50 AM RADIO ELECTRONICS OFFICER Pulse 93 05/01/2024 10:50 AM RADIO ELECTRONICS OFFICER Temperature 36.8 C (98.2 F) 05/01/2024 10:50 AM RADIO ELECTRONICS OFFICER Respiratory Rate 16 05/01/2024 10:50 AM RADIO ELECTRONICS OFFICER Oxygen Saturation 98% 05/01/2024 10:50 AM RADIO ELECTRONICS OFFICER Inhaled Oxygen Concentration - - Weight 51 kg (112 lb 6.4 oz) 05/01/2024 10:50 AM RADIO ELECTRONICS OFFICER Height 159.9 cm (5' 2.95) 05/01/2024 10:[address] Body Mass Index 19.94 05/01/2024 10:50 AM RADIO ELECTRONICS OFFICER documented in this encounter Progress Notes * [...] She said that she was born in [place] but moved throughout her childhood because her [...] to be again. She was living in [place], [place] and receiving care at [facility], though she did not get the sense that it service manager there was super comfortable with sickle cell [...] about 3 weeks ago. She moved to [place] about 2 months ago. Her boyfriend is [...] was getting scheduled, they were moving to [place]. She reports that she has had a [...] them both so she can be a [id number] mom. Sickle Cell Disease Comprehensive Checklist Stroke/silent [...] titrate as needed and notify the primary it service manager via [employer] message if changes to the plan below are needed. 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 GENERAL APPEARANCE: healthy, alert [...] she knows. Even though she lives in [place], she is very willing to come to the [facility] to get her care and use the [...] around the hip and femur strong. -Orthopedic frame changer referral placed. Will defer to them for [...] documentation and further activities per the note Caes Samuel MD Classical Field Reviewer Division of Hematology, Oncology, and Transplantation [facility] O ELECTRONICS OFFICER O ELECTRONICS OFFICER documented in this encounter Nursing Notes * [...] Provider was notified. Pharmacy name entered into Skimo TV: [facility] [address] [place], [place] - [facility] [place], [place] - [address] [facility] Frailty Screening: Is the patient here for a new oncology consult visit in cancer care? 2. No Clinical concerns: Patient states no new concerns to discuss with provider. 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) Expected: 05/02/2024 (Approximate), Expires: 05/02/2025 Scheduled Referrals Name Type Priority Associated Diagnoses Orde r Schedule Adult GI It Senior Software Engineer Java Referral - Consult Only Referral Routine: Next available opening 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) Gallstones Expected: 05/01/2024 (Approximate), Expires: 05/01/2025 Orthopedic It Senior Software Engineer Java Referral Referral Routine: Next available opening 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 Author Pain Management General On track( 025 12:40 PM RADIO ELECTRONICS OFFICER) Yes Juhi Benson RN Note: Goal [...] Genotype Red Blood Cell (05/29/2024 11:23 AM RADIO ELECTRONICS OFFICER) See Scanned Result GENOTYPE RED BLOOD CELL-Scanned 05/31/2024 10:16 AM RADIO ELECTRONICS OFFICER [facility] Blood VENOUS LINE / Unknown IVAD (Port) / Unknown 05/29/2024 11:23 AM RADIO ELECTRONICS OFFICER 05/29/2024 11:29 AM RADIO ELECTRONICS OFFICER us Case Samuel MD LAB - BLOOD [place] [address], [facility] [phone] * (ABNORMAL) HGB Eval Reflex to ELP or RBC Solubility (05/29/2024 11:23 AM RADIO ELECTRONICS OFFICER) Hemoglobin A 15.0(L) 95.0 - 97.9 % 05/31/2024 2:46 PM RADIO ELECTRONICS OFFICER [facility] Hemoglobin A2 3.0 2.0 - 3.5 % 05/31/2024 2:46 PM RADIO ELECTRONICS OFFICER [facility] Hemoglobin F 10.8(H) 0.0 - 2.1 % 05/31/2024 2:46 PM RADIO ELECTRONICS OFFICER [facility] Hemoglobin S 71.2(H) 0.0 - 0.0 % 05/31/2024 2:46 PM RADIO ELECTRONICS OFFICER [facility] Hemoglobin C 0.0 0.0 - 0.0 % 05/31/2024 2:46 PM RADIO ELECTRONICS OFFICER [facility] Hemoglobin E 0.0 0.0 - 0.0 % 05/31/2024 2:46 PM RADIO ELECTRONICS OFFICER [facility] Hemoglobin - Other 0.0 0.0 - 0.0 % 05/31/2024 2:46 PM RADIO ELECTRONICS OFFICER [facility] Hemoglobin Evaluation See Note 05/31/2024 2:46 PM RADIO ELECTRONICS OFFICER [facility] Comment: Impression: Hb S present Laboratory [...] by Alpha Globin (HBA1 and HBA2) Deletion/Duplication ([facility] test #[id number]) should be considered. Hb S/beta-plus thalassemia is typically characterized by more Hb S than Hb A with the presence of microcytosis. If microcytosis is present and Hb S/beta-plus thalassemia is suspected, Beta Globin (HBB) Sequencing ([facility] test #[id number]) is suggested. Hemoglobin analysis should be offered [...] developed and its performance characteristics determined by [facility]. It has not been cleared or approved by the U.S. Food and Drug Administration. This test was performed in a CLIA-certified laboratory and is intended for clinical purposes. Sickle Cell Solubility Reflex Positive(A) 05/31/2024 2:46 PM RADIO ELECTRONICS OFFICER [employer] Comment: INTERPRETIVE INFORMATION: Sickle Cell Solubility Reflex Not Performed: Solubility testing for Hemoglobin S not indicated. 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 Additional charges apply. Conf Previous: Positive for Hemoglobin S by HPLC. Solubility testing performed previously and not repeated with this submission. Hgb Capillary Electrophoresis Reflex Performed 05/31/2024 2:46 PM RADIO ELECTRONICS OFFICER [employer] Comment: INTERPRETIVE INFORMATION: Hgb Capillary Electrophoresis Reflex Not Performed: Confirmation by Capillary Electrophoresis not indicated. Performed: Results confirmed by Capillary Electrophoresis. Additional charges apply. Conf Previous: Capillary Electrophoresis confirmation performed as part of a previous submission. Confirmation not repeated with this submission. Performed By: [facility] [address] [place] [address] Complaint Coordinator: Devon Healy MD, PhD CLIA Number: [id number] Blood VENOUS LINE / Unknown IVAD (Port) / Unknown 05/29/2024 11:23 AM RADIO ELECTRONICS OFFICER 05/29/2024 11:30 AM RADIO ELECTRONICS OFFICER Case Samuel MD LAB - BLOOD ORDERABLES Fi nal Result Performing Organization Address [facility]/ZIP Co de Phone Number [facility] [employer] [address] [place] [phone] [phone] * (ABNORMAL) Ferritin (05/29/2024 11:23 AM RADIO ELECTRONICS OFFICER) Ferritin 1,559(H) 6 - 175 ng/mL 05/29/2024 12:43 PM RADIO ELECTRONICS OFFICER [facility] Blood VENOUS LINE / Unknown IVAD (Port) / Unknown 05/29/2024 11:23 AM RADIO ELECTRONICS OFFICER 05/29/2024 11:29 AM RADIO ELECTRONICS OFFICER Case Samuel MD LAB - BLOOD ORDERABLES Fi nal Result [facility] [address] 1st [place] [address] * (ABNORMAL) Routine UA with micro reflex to culture (05/29/2024 11:23 AM RADIO ELECTRONICS OFFICER) Color Urine Yellow Colorless, Straw, Light Yellow, Yellow 05/29/2024 11:41 AM RADIO ELECTRONICS OFFICER [facility] Appearance Urine Slightly Cloudy(A) Clear 05/29/2024 11:41 AM RADIO ELECTRONICS OFFICER [facility] Glucose Urine Negative Negative mg/dL 05/29/2024 11:41 AM RADIO ELECTRONICS OFFICER [facility] Bilirubin Urine Negative Negative 11:41 AM [facility] Ketones Urine Negative Negative mg/dL 05/29/2024 11:41 AM [facility] Specific [place] Urine 1.013 1.003 - 1.035 05/29/2024 11:41 AM [facility] Blood Urine Negative Negative 05/29/2024 11:41 AM [facility] pH Urine 7.0 5.0 - 7.0 05/29/2024 11:41 AM [facility] Protein Albumin Urine Negative Negative mg/dL 05/29/2024 11:41 AM [facility] Urobilinogen Urine Normal Normal, 2.0 mg/dL 05/29/2024 11:41 AM [facility] Nitrite Urine Negative Negative 05/29/2024 11:41 AM [facility] Leukocyte Esterase Urine Moderate(A) Negative 05/29/2024 11:41 AM RADIO ELECTRONICS OFFICER [facility] Mucus Urine Present(A) None Seen /LPF 05/29/2024 11:41 AM RADIO ELECTRONICS OFFICER [facility] RBC Urine 6(H) <=2 /HPF 05/29/2024 11:41 AM RADIO ELECTRONICS OFFICER [facility] WBC Urine 3 <=5 /HPF 05/29/2024 11:41 AM [facility] Squamous Epithelials Urine 18(H) <=1 /HPF 05/29/2024 11:41 AM [facility] Urine URINE SPECIMEN OBTAINED BY CLEAN CATCH PROCEDURE / Unknown Non-blood Collection / Unknown 05/29/2024 11:23 AM RADIO ELECTRONICS OFFICER 05/29/2024 11:29 AM RADIO ELECTRONICS OFFICER Narrative [facility] - 05/29/2024 11:41 AM RADIO ELECTRONICS OFFICER Urine Culture ordered based on laboratory criteria us Case Samuel MD LAB - URINE ORDERABLES Fi nal Result [facility] [address] [facility] 1st [place] [address] * (ABNORMAL) Comprehensive metabolic panel (05/29/2024 11:23 AM RADIO ELECTRONICS OFFICER) Sodium 139 135 - 145 mmol/L 05/29/2024 11:58 AM [facility] Potassium 4.2 3.4 - 5.3 mmol/L 05/29/2024 11:58 AM [facility] Carbon Dioxide (CO2) 24 22 - 29 mmol/L 05/29/2024 11:58 AM [facility] Anion Gap 10 7 - 15 mmol/L 05/29/2024 11:58 AM [facility] Urea Nitrogen 9.2 6.0 - 20.0 mg/dL 05/29/2024 11:58 AM [facility] Creatinine 0.75 0.51 - 0.95 mg/dL 05/29/2024 11:58 AM [facility] GFR Estimate >90 >60 mL/min/1.7 3m2 05/29/2024 11:58 AM [facility] Comment:eGFR calculated usin g 2020 CKD-EPI equation. Calcium 8.9 8.8 - 10.4 mg/dL 05/29/2024 11:58 AM [facility] Chloride 105 98 - 107 mmol/L 05/29/2024 11:58 AM [facility] Glucose 109(H) 70 - 99 mg/dL 05/29/2024 11:58 AM [facility] Alkaline Phosphatase 83 40 - 150 U/L 05/29/2024 11:58 AM [facility] AST 49(H) 0 - 45 U/L 05/29/2024 11:58 AM [facility] ALT 21 0 - 50 U/L 05/29/2024 11:58 AM [facility] Protein Total 7.3 6.4 - 8.3 g/dL 05/29/2024 11:58 AM [facility] Albumin 4.1 3.5 - 5.2 g/dL 05/29/2024 11:58 AM [facility] Bilirubin Total 2.2(H) <=1.2 mg/dL 05/29/2024 11:58 AM [facility] Blood VENOUS LINE / Unknown IVAD (Port) / Unknown 05/29/2024 11:23 AM RADIO ELECTRONICS OFFICER 05/29/2024 11:29 AM RADIO ELECTRONICS OFFICER Case Samuel MD LAB - BLOOD ORDERABLES Fi nal Result Performing Organization Address [facility] Co de Phone Number [facility] [address] [place] [address] * (ABNORMAL) Reticulocyte count (05/29/2024 11:23 AM RADIO ELECTRONICS OFFICER) % Reticulocyte 29.8(H) 0.5 - 2.0 % 05/29/2024 12:00 PM RADIO ELECTRONICS OFFICER [facility] Absolute Reticulocyte 0.631(H) 0.025 - 0.095 10e6/uL 05/29/2024 12:00 PM RADIO ELECTRONICS OFFICER [facility] Blood VENOUS LINE / Unknown IVAD (Port) / Unknown 05/29/2024 11:23 AM RADIO ELECTRONICS OFFICER 05/29/2024 11:29 AM RADIO ELECTRONICS OFFICER Case Samuel MD LAB - BLOOD ORDERABLES Fi nal Result Performing Organization Address [facility] Co de Phone Number [facility] [address] [place] [address] * (ABNORMAL) Vitamin D deficiency screening (04/28/2024 1:50 AM RADIO ELECTRONICS OFFICER) Vitamin D, Total (25-Hydroxy) 8(L) 20 - 50 ng/mL 05/01/2024 6:42 PM RADIO ELECTRONICS OFFICER [facility] Comment:severe deficiency Blood BLOOD SPECIMEN / Unknown Venipuncture / Unknown 04/28/2024 1:50 AM RADIO ELECTRONICS OFFICER 04/28/2024 1:53 AM RADIO ELECTRONICS OFFICER Narrative [facility] - 05/01/2024 6:42 PM RADIO ELECTRONICS OFFICER Season, race, dietary intake, and treatment affect the concentration of 69-vqwdvnq-Yrflaej D. Values may decrease during winter months and increase during summer months. Vitamin D determination is routinely performed by an immunoassay specific for 25 hydroxyvitamin D3. If an individual is on vitamin D2(ergocalciferol) supplementation, please specify 25 [place] vitamin D2 and D3 level determination by LCMSMS test VITD23. us Case Samuel MD LAB - BLOOD ORDERABLES Fi nal Result [facility] [address] [facility] [place] [address], [facility] documented in this encounter [...] Out COVID-19 05/08/2024 05/08/2024 05/08/2024 8:18 PM RADIO ELECTRONICS OFFICER Rule Out COVID-19 05/16/2024 05/16/2024 05/16/2024 10:46 PM RADIO ELECTRONICS OFFICER documented as of this encounter Care Teams Hand I Thermal Cutter Relationship Specialty Start Date End Date No Ref-Primary, Physician PCP - General 03/15/24 06/17/24 Mor Ramsey Medical Student 04/03/24 Case Samuel MD [address] [place] [address] [address], [address] [place] [phone] Assigned Pediatric Specialist Provider 05/18/24 documented as of this encounter
--- OUTSIDE RECORDS SUMMARY | 2024-06-30 22:30 | XMS_ITS | Clinical Summary ---
Author Organization [facility] Address [address] [place] [id number] Care Team Providers Care Medical Consultant Name Role Phone Veronica Joseph MD Primary Care Provider [phone] Allergies Active Allergy Reactions Criticality Noted Date [...] ickle cell pain crisis (HC) Inhale 1 [place] into affected nostril(s) each time if needed [...] for Pain. 10 Tablet 5 2:58 PM APARTMENT MANAGER 04/27/19 25 Active folic acid 1 mg tablet Take 1 tablet (1 mg) by mouth daily. 30 Tablet 5 1:41 PM APARTMENT MANAGER 05/01/19 25 Active hydroxyurea (HYDREA) 500 mg capsule Take 2 capsules (1,000 mg) by mouth 2 times daily 120 Capsule 05/01/19 25 Active multivitamin with folic acid 0.4 mg (Thera) Take 1 tablet by mouth daily. 30 Tablet 11 5 10:39 AM APARTMENT MANAGER 05/01/19 25 Active amoxicillin-clavul anate (AUGMENTIN) 875-125 mg tablet Take 1 tablet by mouth 2 times daily for 7 days. 14 Tablet 5 10:39 AM APARTMENT MANAGER 05/08/19 25 Active doxycycline hyclate 100 mg capsule Take 1 capsule (100 mg) by mouth 2 times daily for 7 days. 14 Capsule 5 10:39 AM APARTMENT MANAGER 05/08/19 25 Active HYDROmorphone 4 mg tablet Take 1 Tablet (4 mg) by mouth every 6 hours if needed for severe pain. 30 Tablet 5 1:04 PM APARTMENT MANAGER 05/09/19 25 Active FLUoxetine (PROZAC) 10 mg capsule Take 1 capsule (10 mg) by mouth daily. 40 Capsule 1 5 3:26 PM APARTMENT MANAGER 05/29/19 25 Active naloxone (NARCAN) 4 mg/actuation nasal spray [place] 1 spray (4 mg) into one nostril alternating nostrils as needed for opioid reversal (for opiate overdose if not breathing and unconscious. have your family member watch video on how to use/read information sheet). every 2-3 minutes until assistance arrives 2 Each 06/06/19 25 Active apixaban (Eliquis) 5 mg tablet Take 2 tablets (10 mg) by mouth 2 times daily for 6 days, THEN 1 tablet (5 mg) 2 times daily. 178 Tablet 5 3:59 PM APARTMENT MANAGER 06/30/19 25 025 Active HYDROmorphone 2 mg tablet Take 2 tablets (4 mg) by mouth every 6 hours as needed for severe pain. 40 Tablet 5 3:59 PM APARTMENT MANAGER 06/30/19 25 Active HYDROmorphone 2 mg tablet Take 2 tablets (4 mg) by mouth every 6 hours as needed for severe pain. 40 Tablet 5 3:26 PM APARTMENT MANAGER 05/29/19 25 025 Discontin ued(Reord er (E-cancel not sent)) HYDROmorphone 2 mg tablet Take 2 tablets (4 mg) by mouth every 6 hours as needed for severe pain. 40 Tablet 5 4:27 PM APARTMENT MANAGER 06/07/19 25 025 Discontin ued(Reord er (E-cancel not sent)) HYDROmorphone 2 mg tablet Take 2 tablets (4 mg) by mouth every 6 hours as needed for severe pain. 40 Tablet 5 11:11 AM APARTMENT MANAGER 06/15/19 25 025 Discontin ued(Reord er (E-cancel not [...] Department Care Team Description 06/11/2024 1:08 AM APARTMENT MANAGER - 06/11/2024 3:57 AM [facility] Emergency [address] [address] Juan Kunz, DO Sickle cell pain crisis (HC) (Primary Dx) Discharge Disposition: Home Self Care 06/11/2024 Travel 06/06/2024 Refill [facility] [address] [place] [address] Veronica Joseph MD Refill Request 06/03/2024 11:37 AM APARTMENT MANAGER - 06/03/2024 2:[address] [address] Ben Swan MD Viral syndrome (Primary Dx) Discharge Disposition: Home Self Care 06/03/2024 Travel 05/29/2024 1:53 PM APARTMENT MANAGER - 05/29/2024 2:[address] [address] Ana Pacheco MD Sickle cell pain crisis (HC) (Primary Dx) Discharge Disposition: Home Self Care 05/29/2024 Travel 05/21/2024 10:35 AM APARTMENT MANAGER - 05/21/2024 2:[address] [address] Juliana Gil, Sickle cell disease with crisis (HC) (Primary Dx); Diffuse pain Discharge Disposition: Home Self Care 05/21/2024 Travel 05/18/2024 2:12 AM APARTMENT MANAGER - 05/18/2024 4:[address] [address] Onesimo Gaviria MD Sickle cell pain crisis (HC) (Primary Dx) Discharge Disposition: Home Self Care 05/18/2024 Travel 05/17/2024 Telephone [facility] [address] [place] [address] Veronica Joseph MD Questions (HEALTH STATUS ) 05/10/2024 Telephone [facility] [address] [place] [address] Veronica Joseph MD Follow Up 05/07/2024 5:53 PM APARTMENT MANAGER - 05/07/2024 8:[address] [address] Caryn Downs MD Sickle cell anemia with pain (HC) (Primary Dx); RUQ abdominal pain Discharge Disposition: Home Self Care 05/07/2024 Travel 05/03/2024 10:59 PM APARTMENT MANAGER - 05/04/2024 2:[address] [address] Anika Mccracken MD Discharge Disposition: Home Self Care 05/03/2024 Travel 05/02/2024 10:15 AM APARTMENT MANAGER - 05/02/2024 12:[address] [address] Juan Kunz DO Sickle cell pain crisis (HC) (Primary Dx) Discharge Disposition: Home Self Care 05/02/2024 Travel 04/27/2024 Telephone [facility] [address] [place] [address] Veronica Joseph MD 04/27/2024 Refill [facility] [address] [place] [address] Veronica Joseph MD Refill Request (HYDROmorphone 4 mg tablet ) 04/24/2024 1:31 AM APARTMENT MANAGER - 04/24/2024 4:[address] [address] Onesimo Gaviria MD Sickle cell pain crisis (HC) (Primary Dx); Community acquired pneumonia, unspecified laterality Discharge Disposition: Home Self Care 04/24/2024 Refill [facility] [address] [place] [address] Veronica Joseph MD Refill Request (HYDROmorphone 4 mg tablet ) 04/24/2024 Travel 04/22/2024 1:40 PM APARTMENT MANAGER - 04/22/2024 5:[address] [address] Shauna Flaherty PA Sickle cell pain crisis (HC) (Primary Dx) Discharge Disposition: Home Self Care 04/22/2024 Travel 04/20/2024 3:40 PM APARTMENT MANAGER - 04/20/2024 6:[address] [address] Maria Tereas Haider PA Left hip pain (Primary Dx) Discharge Disposition: Home Self Care 04/20/2024 Travel 04/20/2024 Telephone [facility] [address] [place] [address] Veronica Joseph MD 04/20/2024 Refill [facility] [address] [place] [address] Veronica Joseph MD Refill Request (HYDROmorphone 4 mg tablet) 04/19/2024 7:18 PM APARTMENT MANAGER - 04/19/2024 9:[address] [address] Maria Teresa Haider PA Closed right hip fracture, initial encounter (HC) (Primary Dx); Avascular necrosis of bone of right hip (HC); Sickle cell pain crisis (HC) Discharge Disposition: Home Self Care 04/19/2024 Travel 04/18/2024 3:51 AM APARTMENT MANAGER - 04/18/2024 5:[address] [address] Elizabeth Duffy MD Left hip pain (Primary Dx); Sickle cell disease with crisis (HC) Discharge Disposition: Home Self Care 04/17/2024 10:36 AM APARTMENT MANAGER - 04/17/2024 12:36 PM APARTMENT MANAGER [address] [address] Juhi Hull PA Left hip pain (Primary Dx); Sickle cell pain crisis (HC) Discharge Disposition: Home Self Care 04/17/2024 Travel 04/15/2024 5:33 PM APARTMENT MANAGER - 04/15/2024 10:[address] [address] Kathy Contreras MD Sickle cell pain crisis (HC) (Primary Dx) Discharge Disposition: Home Self Care 04/15/2024 Travel 04/11/2024 9:55 AM APARTMENT MANAGER Office Visit [facility] [address] [place] [address] Veronica Joseph MD Follow Up (Sickle Cell) 04/11/2024 Travel 04/08/2024 6:17 PM APARTMENT MANAGER - 04/08/2024 8:[address] [address] Ana Pacheco MD Sickle cell pain crisis (HC) (Primary Dx) Discharge Disposition: Home Self Care 04/08/2024 Travel 04/06/2024 8:27 PM APARTMENT MANAGER - 04/06/2024 10:[address] [address] Tanmay Olivares PA Biliary colic (Primary Dx) Discharge Disposition: Home Self Care 04/06/2024 Travel 04/04/2024 6:29 PM APARTMENT MANAGER - 04/04/2024 10:[address] [address] Juhi Patel PA Sickle cell anemia with pain (HC) (Primary Dx); Opioid use Discharge Disposition: Home Self Care 04/04/2024 Travel 04/02/2024 3:52 PM APARTMENT MANAGER - 04/02/2024 6:31 PM APARTMENT MANAGER Emergency [id number] [place] [address] Sabrina Ulrich, LESLEY Morgan, Klever Johnson MD Sickle cell pain crisis (HC) (Primary Dx); Multiple pulmonary nodules Discharge Disposition: Home Self Care 04/02/2024 Travel from Last 3 Months Immunizations Name [...] on file Legal Sex Female 8:18 PM APARTMENT MANAGER Gender Identity Not on file Sexual Orientation Not on file Obstetrics History Last Filed Vital Signs Vital Sign Reading Time Taken Comments Blood Pressure 121/73 06/11/2024 3:30 AM APARTMENT MANAGER Pulse 93 06/11/2024 3:30 AM APARTMENT MANAGER Temperature 36.6 C (97.9 F) 06/11/2024 1:12 AM APARTMENT MANAGER Respiratory Rate 18 06/11/2024 3:00 AM APARTMENT MANAGER Oxygen Saturation 95% 06/11/2024 3:30 AM APARTMENT MANAGER Inhaled Oxygen Concentration - - Weight 51.7 kg (114 lb) 06/11/2024 1:10 AM APARTMENT MANAGER Height 154.9 cm (5' 1) 06/11/2024 1:10 AM APARTMENT MANAGER Body Mass Index 21.54 06/11/2024 1:10 AM APARTMENT MANAGER Plan of Treatment Health Maintenance Due [...] WITH AUTO DIFFERENTIAL STAT 06/03/2024 12:51 PM APARTMENT MANAGER INFLUENZA A/B PCR Today 06/03/2024 12: 51 PM APARTMENT MANAGER COVID-19 MOLECULAR Today 06/03/2024 12 :51 PM APARTMENT MANAGER BASIC METABOLIC PANEL STAT 06/03/2024 12:51 PM APARTMENT MANAGER CBC WITH AUTO DIFFERENTIAL STAT 06/03/2024 12:51 PM APARTMENT MANAGER XR CHEST 2 VIEWS PA AND LATERAL STAT 06/03/2024 12:34 PM APARTMENT MANAGER EKG 12 LEAD STAT 06/03/2024 11:48 AM APARTMENT MANAGER HEMOGLOBIN STAT 05/29/2024 2:23 PM APARTMENT MANAGER EKG 12 LEAD STAT 05/29/2024 2:03 PM APARTMENT MANAGER EKG 12 LEAD STAT 05/21/2024 10:19 AM APARTMENT MANAGER RED CELL MORPHOLOGY STAT 05/07/2024 6 :20 PM APARTMENT MANAGER PLATELET ESTIMATE STAT 05/07/2024 6:2 0 PM APARTMENT MANAGER RETICULOCYTES STAT 05/07/2024 6:20 PM APARTMENT MANAGER LIPASE STAT 05/07/2024 6:20 PM APARTMENT MANAGER HEPATIC FUNCTION PANEL STAT 6:20 PM APARTMENT MANAGER BASIC METABOLIC PANEL STAT 05/07/2024 6:20 PM APARTMENT MANAGER CBC W PLT NO DIFF STAT 05/07/2024 6:[address] CHEST PE STUDY STAT 05/04/2024 1:4 6 AM APARTMENT MANAGER RETICULOCYTES STAT 05/04/2024 12:24 AM APARTMENT MANAGER URINE Today 05/04/2024 12:07 AM APARTMENT MANAGER UA W/ SEDIMENT EXAM REFLEXED PER CRITERIA Today 05/04/2024 12:07 AM APARTMENT MANAGER CWS PATH REVIEW HEMATOLOGY STAT 05/03/2024 11:52 PM APARTMENT MANAGER RED CELL MORPHOLOGY STAT 05/03/2024 1 1:52 PM APARTMENT MANAGER PLATELET ESTIMATE STAT 05/03/2024 11: 52 PM APARTMENT MANAGER MANUAL DIFFERENTIAL STAT 05/03/2024 1 1:52 PM APARTMENT MANAGER CBC WITH AUTO DIFFERENTIAL STAT 05/03/2024 11:52 PM APARTMENT MANAGER D-DIMER,QUANTITATIVE STAT 05/03/2024 11:52 PM APARTMENT MANAGER HEPATIC FUNCTION PANEL STAT 11:52 PM APARTMENT MANAGER BASIC METABOLIC PANEL STAT 05/03/2024 11:52 PM APARTMENT MANAGER CBC WITH AUTO DIFFERENTIAL STAT 05/03/2024 11:52 PM APARTMENT MANAGER EKG 12 LEAD STAT 05/03/2024 11:48 PM APARTMENT MANAGER INFLUENZA A/B PCR Today 05/02/2024 10: 20 AM APARTMENT MANAGER COVID-19 MOLECULAR Today 05/02/2024 10 :20 AM APARTMENT MANAGER CBC WITH AUTO DIFFERENTIAL SULEMA 04/24/2024 2:16 AM APARTMENT MANAGER RETICULOCYTES Early AM 04/24/2024 2:16 AM APARTMENT MANAGER CBC WITH AUTO DIFFERENTIAL SULEMA 04/24/2024 2:16 AM APARTMENT MANAGER BASIC METABOLIC PANEL SULEMA 04/24/2024 2:16 AM APARTMENT MANAGER XR CHEST 2 VIEWS PA AND LATERAL STAT 04/24/2024 1:58 AM APARTMENT MANAGER EKG 12 LEAD SULEMA 04/24/2024 1:38 AM APARTMENT MANAGER RETICULOCYTES STAT 04/22/2024 2:21 PM APARTMENT MANAGER BASIC METABOLIC PANEL STAT 04/22/2024 2:21 PM APARTMENT MANAGER CBC W PLT NO DIFF STAT 04/22/2024 2:2 1 PM APARTMENT MANAGER XR CHEST 2 VIEWS PA AND LATERAL STAT 04/22/2024 1:18 PM APARTMENT MANAGER EKG 12 LEAD STAT 04/22/2024 1:06 PM APARTMENT MANAGER TYPE & SCREEN STAT 04/20/2024 4:43 PM APARTMENT MANAGER RED CELL MORPHOLOGY STAT 04/20/2024 4 :43 PM APARTMENT MANAGER PLATELET ESTIMATE STAT 04/20/2024 4:4 3 PM APARTMENT MANAGER MANUAL DIFFERENTIAL STAT 04/20/2024 4 :43 PM APARTMENT MANAGER CBC WITH AUTO DIFFERENTIAL STAT 04/20/2024 4:43 PM APARTMENT MANAGER RETICULOCYTES STAT 04/20/2024 4:43 PM APARTMENT MANAGER CBC WITH AUTO DIFFERENTIAL STAT 04/20/2024 4:43 PM APARTMENT MANAGER BASIC METABOLIC PANEL STAT 04/20/2024 4:25 PM APARTMENT MANAGER XR ANKLE 3 VIEWS LEFT STAT 04/18/2024 5:09 AM APARTMENT MANAGER C-REACTIVE PROTEIN STAT 04/18/2024 4: 59 AM APARTMENT MANAGER BASIC METABOLIC PANEL STAT 04/18/2024 4:59 AM APARTMENT MANAGER SEDIMENTATION RATE STAT 04/18/2024 4: 58 AM APARTMENT MANAGER CBC WITH AUTO DIFFERENTIAL STAT 04/18/2024 4:58 AM APARTMENT MANAGER RETICULOCYTES STAT 04/18/2024 4:58 AM APARTMENT MANAGER CBC WITH AUTO DIFFERENTIAL STAT 04/18/2024 4:58 AM APARTMENT MANAGER RED CELL MORPHOLOGY STAT 04/17/2024 1 0:50 AM APARTMENT MANAGER PLATELET ESTIMATE STAT 04/17/2024 10: 50 AM APARTMENT MANAGER C-REACTIVE PROTEIN SULEMA 04/17/2024 10 :50 AM APARTMENT MANAGER SEDIMENTATION RATE SULEMA 04/17/2024 10 :50 AM APARTMENT MANAGER CBC W PLT NO DIFF STAT 04/17/2024 10: 50 AM APARTMENT MANAGER BASIC METABOLIC PANEL STAT 04/17/2024 10:50 AM APARTMENT MANAGER RETICULOCYTES STAT 04/17/2024 10:50 AM APARTMENT MANAGER XR HIP 2 OR 3 VIEWS W PELVIS LEFT STAT 04/15/2024 6:34 PM APARTMENT MANAGER TYPE & SCREEN STAT 04/15/2024 6:10 PM APARTMENT MANAGER RED CELL MORPHOLOGY STAT 04/15/2024 6 :10 PM APARTMENT MANAGER PLATELET ESTIMATE STAT 04/15/2024 6:1 0 PM APARTMENT MANAGER C-REACTIVE PROTEIN STAT 04/15/2024 6: 10 PM APARTMENT MANAGER SEDIMENTATION RATE STAT 04/15/2024 6: 10 PM APARTMENT MANAGER CBC WITH AUTO DIFFERENTIAL STAT 04/15/2024 6:10 PM APARTMENT MANAGER BASIC METABOLIC PANEL STAT 04/15/2024 6:10 PM APARTMENT MANAGER RETICULOCYTES STAT 04/15/2024 6:10 PM APARTMENT MANAGER CBC WITH AUTO DIFFERENTIAL STAT 04/15/2024 6:10 PM APARTMENT MANAGER RED CELL MORPHOLOGY Timed 04/08/2024 8 :27 PM APARTMENT MANAGER PLATELET ESTIMATE Timed 04/08/2024 8:2 7 PM APARTMENT MANAGER RETICULOCYTES Early AM 04/08/2024 8:27 PM APARTMENT MANAGER CBC W PLT NO DIFF Early AM 04/08/2024 8:2 7 PM APARTMENT MANAGER XR CHEST 2 VIEWS PA AND LATERAL STAT 04/08/2024 7:28 PM APARTMENT MANAGER BASIC METABOLIC PANEL STAT 04/08/2024 7:05 PM APARTMENT MANAGER EKG 12 LEAD STAT 04/08/2024 5:50 PM APARTMENT MANAGER US ABDOMEN LIMITED GALLBLADDER STAT 04/06/2024 9:38 PM APARTMENT MANAGER CBC WITH AUTO DIFFERENTIAL STAT 04/06/2024 8:55 PM APARTMENT MANAGER RETICULOCYTES STAT 04/06/2024 8:55 PM APARTMENT MANAGER LIPASE STAT 04/06/2024 8:55 PM APARTMENT MANAGER COMP METABOLIC PANEL STAT 04/06/2024 8:55 PM APARTMENT MANAGER CBC WITH AUTO DIFFERENTIAL STAT 04/06/2024 8:55 PM APARTMENT MANAGER XR CHEST 2 VIEWS PA AND LATERAL STAT 04/04/2024 7:28 PM APARTMENT MANAGER RED CELL MORPHOLOGY STAT 04/04/2024 6 :54 PM APARTMENT MANAGER PLATELET ESTIMATE STAT 04/04/2024 6:5 4 PM APARTMENT MANAGER MANUAL DIFFERENTIAL STAT 04/04/2024 6 :54 PM APARTMENT MANAGER TROPONIN T (HS) ACUTE W/2HR REFLEX SULEMA 04/04/2024 6:54 PM APARTMENT MANAGER CBC WITH AUTO DIFFERENTIAL STAT 04/04/2024 6:54 PM APARTMENT MANAGER RETICULOCYTES STAT 04/04/2024 6:54 PM APARTMENT MANAGER BASIC METABOLIC PANEL STAT 04/04/2024 6:54 PM APARTMENT MANAGER CBC WITH AUTO DIFFERENTIAL STAT 04/04/2024 6:54 PM APARTMENT MANAGER EKG 12 LEAD STAT 04/04/2024 6:45 PM APARTMENT MANAGER XR CHEST 2 VIEWS PA AND LATERAL STAT 04/02/2024 4:42 PM APARTMENT MANAGER EKG 12 LEAD STAT 04/02/2024 4:24 PM APARTMENT MANAGER RED CELL MORPHOLOGY STAT 04/02/2024 4 :21 PM APARTMENT MANAGER PLATELET ESTIMATE STAT 04/02/2024 4:2 1 PM APARTMENT MANAGER CBC WITH AUTO DIFFERENTIAL STAT 04/02/2024 4:21 PM APARTMENT MANAGER RETICULOCYTES STAT 04/02/2024 4:21 PM APARTMENT MANAGER BASIC METABOLIC PANEL STAT 04/02/2024 4:21 PM APARTMENT MANAGER CBC WITH AUTO DIFFERENTIAL STAT 04/02/2024 4:21 PM APARTMENT MANAGER from Last 3 Months Results * COVID-19 MOLECULAR (06/03/2024 12:51 PM APARTMENT MANAGER) Only the most recent of2 resultswithin the time period is included. COVID 19 [place] MOLECULAR Not detected Not detected 06/03/2024 1:18 PM APARTMENT MANAGER [facility] 06/03/2024 1:18 PM APARTMENT MANAGER [facility] Comment:Specimen submitted t o [facility] for testing. Other SPECIMEN FROM NASOPHARYNGEAL STRUCTURE / Unknown Non-Blood / Unknown 06/03/2024 12:51 PM APARTMENT MANAGER 06/03/2024 12:54 PM APARTMENT MANAGER Ben Swan MD MICROBIOLOGY Final Res ult Performing Organization Address City/[facility] Co de Phone Number [facility] [address] [place] [phone], * INFLUENZA A/B PCR (06/03/2024 12:51 PM APARTMENT MANAGER) Only the most recent of2 resultswithin the time period is included. Pathologist [facility] INFLUENZA A PCR NOT Detected 06/03/2024 1:18 PM APARTMENT MANAGER [facility] INFLUENZA B PCR NOT Detected 06/03/2024 1:18 PM APARTMENT MANAGER [facility] Other SPECIMEN FROM NASOPHARYNGEAL STRUCTURE / Unknown Non-Blood / Unknown 06/03/2024 12:51 PM APARTMENT MANAGER 06/03/2024 12:54 PM APARTMENT MANAGER Ben Swan MD MICROBIOLOGY Final Res ult Performing Organization Address [facility]/ZIP Co de Phone Number [facility] [address] [place] [phone], * (ABNORMAL) CBC WITH AUTO DIFFERENTIAL (06/03/2024 12:51 PM APARTMENT MANAGER) Only the most recent of9 resultswithin the time period is included. WHITE BLOOD COUNT 11.0 4.5 - 11.0 thou/cu mm 06/03/2024 1:05 PM APARTMENT MANAGER [facility] RED BLOOD COUNT 2.94(L) 4.00 - 5.20 mil/cu mm 06/03/2024 1:05 PM APARTMENT MANAGER [facility] HEMOGLOBIN 9.3(L) 12.0 - 16.0 g/dL 06/03/2024 1:05 PM APARTMENT MANAGER [facility] HEMATOCRIT 26.9(L) 33.0 - 51.0 % 06/03/2024 1:05 PM APARTMENT MANAGER [facility] MCV 92 80 - 100 fL 06/03/2024 1:05 PM APARTMENT MANAGER [facility] MCH 31.6 26.0 - 34.0 pg 06/03/2024 1:05 PM APARTMENT MANAGER [facility] MCHC 34.6 32.0 - 36.0 g/dL 06/03/2024 1:05 PM APARTMENT MANAGER [facility] RDW 18.9(H) 11.5 - 15.5 % 06/03/2024 1:05 PM APARTMENT MANAGER [facility] PLATELET COUNT 456(H) 140 - 440 thou/cu mm 06/03/2024 1:05 PM APARTMENT MANAGER [facility] MPV 9.8 6.5 - 11.0 fL 06/03/2024 1:05 PM APARTMENT MANAGER [facility] NRBC 0.6 % 06/03/2024 1:05 PM APARTMENT MANAGER [facility] ABS NRBC 0.1 thou /cu mm 06/03/2024 1:05 PM APARTMENT MANAGER [facility] % NEUT 69.9 % 06/03/2024 1:05 PM APARTMENT MANAGER [facility] % LYMPH 15.1 % 06/03/2024 1:05 PM APARTMENT MANAGER [facility] % MONO 13.4 % 06/03/2024 1:05 PM APARTMENT MANAGER [facility] % EOS 0.2 % 06/03/2024 1:05 PM APARTMENT MANAGER [facility] % BASO 0.9 % 06/03/2024 1:05 PM APARTMENT MANAGER [facility] % IMMATURE GRAN (METAS,MYELOS,PA OS) 0.5 % 06/03/2024 1:05 PM APARTMENT MANAGER [facility] ABSOLUTE NEUTROPHILS 7.7(H) 1.7 - 7.0 thou/cu mm 06/03/2024 1:05 PM APARTMENT MANAGER [facility] ABSOLUTE LYMPHOCYTES 1.7 0.9 - 2.9 thou/cu mm 06/03/2024 1:05 PM APARTMENT MANAGER [facility] ABSOLUTE MONOCYTES 1.5(H) <0.9 thou/cu mm 06/03/2024 1:05 PM APARTMENT MANAGER [facility] ABSOLUTE EOSINOPHILS 0.0 <0.5 thou/cu mm 06/03/2024 1:05 PM APARTMENT MANAGER [facility] ABSOLUTE BASOPHILS 0.1 <0.3 thou/cu mm 06/03/2024 1:05 PM APARTMENT MANAGER [facility] ABSOLUTE IMMATURE GRANULOCYTES(MET ,MYELOS,PROS) 0.1 <0.3 thou/cu mm 06/03/2024 1:05 PM APARTMENT MANAGER [facility] Blood BLOOD SPECIMEN / Unknown IV Start / Unknown 06/03/2024 12:51 PM APARTMENT MANAGER 06/03/2024 12:54 PM APARTMENT MANAGER us Ben Swan MD HEMATOLOGY Final Res ult [facility] [address] [place] [address], * (ABNORMAL) BASIC METABOLIC PANEL (06/03/2024 12:51 PM APARTMENT MANAGER) Only the most recent of12 resultswithin the time period is included. SODIUM 135(L) 136 - 145 mmol/L 06/03/2024 1:13 PM [facility] POTASSIUM 4.5 3.5 - 5.1 mmol/L 06/03/2024 1:13 PM APARTMENT MANAGER [facility] CHLORIDE 101 98 - 107 mmol/L 06/03/2024 1:13 PM [facility] CO2,TOTAL 21(L) 22 - 29 mmol/L 06/03/2024 1:13 PM APARTMENT MANAGER [facility] ANION GAP 13 5 - 18 06/03/2024 1:13 PM APARTMENT MANAGER [facility] GLUCOSE 100(H) 70 - 99 mg/dL 06/03/2024 1:13 PM [facility] CALCIUM 9.6 8.8 - 10.4 mg/dL 06/03/2024 1:13 PM [facility] Comment: Reference ranges for this test were updated on 02/29/2024 to reflect our healthy population more accurately. Reference range changes are not retroactively applied to results, but previous results using the same methodology can be interpreted in the context of the new reference range. BUN 12 6 - 20 mg/dL 06/03/2024 1:13 PM [facility] CREATININE 0.74 0.50 - 0.90 mg/dL 06/03/2024 1:13 PM [facility] BUN/CREAT RATIO 16 10 - 20 1:13 PM [facility] eGFR >90 >90 mL/min/1.7 3m2 06/03/2024 1:13 PM APARTMENT MANAGER [facility] Comment:As of 2021, eG FR is calculated by the CKD-EPI creatinine equation without race adjustment. eGFR can be influenced by muscle mass, exercise, and diet. The reported eGFR is an estimation only and is only applicable if the renal function is stable. Blood BLOOD SPECIMEN / Unknown IV Start / Unknown 06/03/2024 12:51 PM APARTMENT MANAGER 06/03/2024 12:54 PM APARTMENT MANAGER us Ben Swan MD CHEMISTRY Final Res ult [facility] [address] [place] [phone], * XR CHEST 2 VIEWS PA AND LATERAL (06/03/2024 12:34 PM APARTMENT MANAGER) Only the most recent of6 resultswithin the time period is included. Anatomical Region Laterality Modality CHEST, THORAX, Lung, HEART Compu frank Radiography 06/03/2024 12:3 4 PM APARTMENT MANAGER Impressions 06/03/2024 1:03 PM APARTMENT MANAGER Faintly visible nodularity mid and lower lungs correspond to pulmonary nodules on recent CT. No focal pulmonary consolidation. No pleural effusion. No pneumothorax. Heart size normal. Port anterior right chest wall with right-sided CVC low SVC. In addition, there is a left-sided port anterior left chest wall with left CVC tip also in the low SVC. Narrative 06/03/2024 1:03 PM APARTMENT MANAGER For Patients: As a result of the Cures Act, medical imaging exams and procedure reports are released immediately into your electronic medical record. You may view this report before your referring provider. If you have questions, please contact your health care provider. EXAM: XR CHEST 2 VIEWS PA AND LATERAL LOCATION: [facility] DATE: 06/03/2024 INDICATION: Chest pain. COMPARISON: 05/04/2024 [...] 2 VIEWS PA AND LATERAL LOCATION: [facility] DATE: 06/03/2024 INDICATION: Chest pain. COMPARISON: 05/04/2024 [...] * EKG 12 LEAD (06/03/2024 11:48 AM APARTMENT MANAGER) Only the most recent of9 resultswithin the time period is included. Pathologist [facility] Interpretation Normal sinus rhythm Nonspecific T wave [...] NOW QTc 454 ms BEYOND NOW P Deep Gap 54 degrees BEYOND NOW R Deep Gap 55 degrees BEYOND NOW T Deep Gap 31 degrees BEYOND NOW 06/03/2024 11:4 8 AM APARTMENT MANAGER 06/04/2024 3:27 AM APARTMENT MANAGER Narrative [facility] NOW - 06/04/2024 3:27 AM APARTMENT MANAGER Test Indication: chest pain [facility] [place] ORD Final Result [facility] NOW [place], [place] * (ABNORMAL) HEMOGLOBIN (05/29/2024 2:23 PM APARTMENT MANAGER) [facility] HEMOGLOBIN 7.1(L) 12.0 - 16.0 g/dL 05/29/2024 2:32 PM APARTMENT MANAGER [facility] MCV 93 80 - 100 fL 05/29/2024 2:32 PM APARTMENT MANAGER [facility] Blood BLOOD SPECIMEN / Unknown IV Start / Unknown 05/29/2024 2:23 PM APARTMENT MANAGER 05/29/2024 2:30 PM APARTMENT MANAGER Ana Pacheco MD HEMATOLOGY Final Result Performing Organization Address [facility]/ZIP Co de Phone Number [facility] [address] [place] [id number], * (ABNORMAL) RED CELL MORPHOLOGY (05/07/2024 6:20 PM APARTMENT MANAGER) Only the most recent of8 resultswithin the time period is included. POLYCHROMASIA Moderate 05/07/2024 6:33 PM APARTMENT MANAGER [facility] [facility] TARGET CELLS Moderate 05/07/2024 6:33 PM APARTMENT MANAGER [facility] RBC COMMENT Present(A) RBC morphology appears normal, RBC morphology within normal limits for newborns. 05/07/2024 6:33 PM APARTMENT MANAGER [facility] *SICKLE CELLS Present 05/07/2024 6:33 PM APARTMENT MANAGER [facility] Blood BLOOD SPECIMEN / Unknown Butterfly / Unknown 05/07/2024 6:20 PM APARTMENT MANAGER 05/07/2024 6:23 PM APARTMENT MANAGER Caryn Rasmussen MD HEMATOLOGY Final Result [facility] [address] [place] [id number], * PLATELET ESTIMATE (05/07/2024 6:20 PM APARTMENT MANAGER) Only the most recent of8 resultswithin the time period is included. PLATELET ESTIMATE Adequate Adequate, No estimate 05/07/2024 6:33 PM APARTMENT MANAGER [facility] Blood BLOOD SPECIMEN / Unknown Butterfly / Unknown 05/07/2024 6:20 PM APARTMENT MANAGER 05/07/2024 6:23 PM APARTMENT MANAGER us Caryn Rasmussen MD HEMATOLOGY Final Result [facility] [address] [place] [address], [place] [phone] * (ABNORMAL) CBC W PLT NO DIFF (05/07/2024 6:20 PM APARTMENT MANAGER) Only the most recent of4 resultswithin the time period is included. WHITE BLOOD COUNT 15.6(H) 4.5 - 11.0 thou/cu mm 05/07/2024 6:33 PM APARTMENT MANAGER [facility] RED BLOOD COUNT 2.71(L) 4.00 - 5.20 mil/cu mm 05/07/2024 6:33 PM APARTMENT MANAGER [facility] HEMOGLOBIN 8.7(L) 12.0 - 16.0 g/dL 05/07/2024 6:33 PM APARTMENT MANAGER [facility] HEMATOCRIT 25.4(L) 33.0 - 51.0 % 05/07/2024 6:33 PM APARTMENT MANAGER [facility] MCV 94 80 - 100 fL 05/07/2024 6:33 PM APARTMENT MANAGER [facility] MCH 32.1 26.0 - 34.0 pg 05/07/2024 6:33 PM APARTMENT MANAGER [facility] MCHC 34.3 32.0 - 36.0 g/dL 05/07/2024 6:33 PM APARTMENT MANAGER [facility] RDW 23.3(H) 11.5 - 15.5 % 05/07/2024 6:33 PM APARTMENT MANAGER [facility] PLATELET COUNT 356 140 - 440 thou/cu mm 05/07/2024 6:33 PM APARTMENT MANAGER [facility] MPV 9.8 6.5 - 11.0 fL 05/07/2024 6:33 PM APARTMENT MANAGER [facility] NRBC 2.0 % 05/07/2024 6:33 PM APARTMENT MANAGER [facility] ABS NRBC 0.3 thou /cu mm 05/07/2024 6:33 PM APARTMENT MANAGER [facility] Blood BLOOD SPECIMEN / Unknown Butterfly / Unknown 05/07/2024 6:20 PM APARTMENT MANAGER 05/07/2024 6:23 PM APARTMENT MANAGER Caryn Rasmussen MD HEMATOLOGY Final Result Performing Organization Address City/[facility] Co de Phone Number [address] [address], [place] [phone] * (ABNORMAL) RETICULOCYTES (05/07/2024 6:20 PM APARTMENT MANAGER) Only the most recent of12 resultswithin the time period is included. RETIC% 20.3(H) 0.5 - 1.5 % 05/07/2024 6:34 PM APARTMENT MANAGER [facility] RETIC (ABSOLUTE) 0.55(H) 0.03 - 0.08 mil/cu mm 05/07/2024 6:34 PM APARTMENT MANAGER [facility] Blood BLOOD SPECIMEN / Unknown Butterfly / Unknown 05/07/2024 6:20 PM APARTMENT MANAGER 05/07/2024 6:23 PM APARTMENT MANAGER Caryn Rasmussen MD HEMATOLOGY Final Result Performing Organization Address City/[facility]/ZIP Co de Phone Number [facility] [address] [place] [address], [place] [phone] * LIPASE (05/07/2024 6:20 PM APARTMENT MANAGER) Only the most recent of2 resultswithin the time period is included. LIPASE 35.9 13.0 - 60.0 IU/L 05/07/2024 6:53 PM APARTMENT MANAGER [facility] Blood BLOOD SPECIMEN / Unknown Butterfly / Unknown 05/07/2024 6:20 PM APARTMENT MANAGER 05/07/2024 6:23 PM APARTMENT MANAGER Caryn Rasmussen MD CHEMISTRY Final Result [facility] [address] [place] [address], * (ABNORMAL) HEPATIC FUNCTION PANEL (05/07/2024 6:20 PM APARTMENT MANAGER) Only the most recent of2 resultswithin the time period is included. ALBUMIN 4.4 4.0 - 4.9 g/dL 05/07/2024 6:53 PM APARTMENT MANAGER [facility] PROTEIN,TOTAL 8.1(H) 6.0 - 8.0 g/dL 05/07/2024 6:53 PM APARTMENT MANAGER [facility] BILIRUBIN,TOTAL 2.2(H) 0.0 - 1.2 mg/dL 05/07/2024 6:53 PM APARTMENT MANAGER [facility] BILIRUBIN,DIRECT 0.9(H) 0.0 - 0.2 mg/dL 05/07/2024 6:53 PM APARTMENT MANAGER [facility] BILIRUBIN,INDIRE CT 1.3(H) 0.2 - 0.8 mg/dL 05/07/2024 6:53 PM APARTMENT MANAGER [facility] ALK PHOSPHATASE 120(H) 35 - 104 IU/L 05/07/2024 6:53 PM APARTMENT MANAGER [facility] ALT (SGPT) 28 10 - 35 IU/L 05/07/2024 6:53 PM APARTMENT MANAGER [facility] AST (SGOT) 46(H) 10 - 35 IU/L 05/07/2024 6:53 PM APARTMENT MANAGER [facility] Blood BLOOD SPECIMEN / Unknown Butterfly / Unknown 05/07/2024 6:20 PM APARTMENT MANAGER 05/07/2024 6:23 PM APARTMENT MANAGER Caryn Rasmussen MD CHEMISTRY Final Result [facility] [address] [place] [address], * CT CHEST PE STUDY (05/04/2024 1:46 AM APARTMENT MANAGER) Anatomical Region Laterality Modality CHEST, THORAX, HEART Computed To mography 05/04/2024 1:46 AM APARTMENT MANAGER Impressions 05/04/2024 2:01 AM APARTMENT MANAGER 1. No pulmonary embolus. 2. Multiple small bilateral pulmonary nodules and mild enlargement of right hilar lymph nodes not significantly changed from the recent study of 04/06/2024. Differential diagnosis includes inflammatory/infectious and neoplastic etiologies. Narrative 05/04/2024 2:01 AM APARTMENT MANAGER For Patients: As a result of the Century Cures Act, medical imaging exams and procedure reports are released immediately into your electronic medical record. You may view this report before your referring provider. If you have questions, please contact your health care provider. EXAM: CT CHEST PE STUDY LOCATION: [facility] DATE: 05/04/2024 INDICATION: Pulmonary embolism (PE) suspected, [...] provider. EXAM: CT CHEST PE STUDY LOCATION: [facility] DATE: 05/04/2024 INDICATION: Pulmonary embolism (PE) suspected, [...] EXAM REFLEXED PER CRITERIA (05/04/2024 12:07 AM APARTMENT MANAGER) COLOR Yellow Yellow Color 05/04/2024 12:18 AM APARTMENT MANAGER [facility] CLARITY Clear Clear Clarity 05/04/2024 12:18 AM APARTMENT MANAGER [facility] SPECIFIC GRAVITY,URINE 1.015 1.010, 1.015, 1.020, 1.025 05/04/2024 12:18 AM APARTMENT MANAGER [facility] PH,URINE 7.0 6.0, 7.0, 8.0, 5.5, 6.5, 7.5, 8.5 05/04/2024 12:18 AM APARTMENT MANAGER [facility] UROBILINOGEN,Q UALITATIVE Normal Normal EU/dl 05/04/2024 12:18 AM APARTMENT MANAGER [facility] PROTEIN, URINE Negative Negative mg/dL 05/04/2024 12:18 AM APARTMENT MANAGER [facility] GLUCOSE, URINE Negative Negative mg/dL 05/04/2024 12:18 AM APARTMENT MANAGER [facility] KETONES,URINE Negative Negative mg/dL 05/04/2024 12:18 AM APARTMENT MANAGER [facility] BILIRUBIN,URIN E Negative Negative 05/04/2024 12:18 AM APARTMENT MANAGER [facility] OCCULT BLOOD,URINE Negative Negative 05/04/2024 12:18 AM [facility] NITRITE Negative Negative 05/04/2024 12:18 AM APARTMENT MANAGER [facility] LEUKOCYTE ESTERASE Negative Negative 05/04/2024 12:18 AM APARTMENT MANAGER [facility] Urine URINE SPECIMEN / Unknown Non-Blood / Unknown 05/04/2024 12:07 AM APARTMENT MANAGER 05/04/2024 12:13 AM APARTMENT MANAGER Anika Mccracken MD URINE Final Resu lt [facility] [address] [place] [address], * URINE (05/04/2024 12:07 AM APARTMENT MANAGER) ,URIN E Negative Negative 05/04/2024 12:22 AM APARTMENT MANAGER [facility] Urine URINE SPECIMEN / Unknown Non-Blood / Unknown 05/04/2024 12:07 AM APARTMENT MANAGER 05/04/2024 12:13 AM APARTMENT MANAGER Anika Mccracken MD URINE Final Resu lt [facility] [address] [place] [address], * S PATH REVIEW HEMATOLOGY (05/03/2024 11:52 PM APARTMENT MANAGER) PATH COMMENT Comment: 05/06/2024 7:30 AM APARTMENT MANAGER [facility] Comment:Frequent sickle cell s. Reviewed by Dr. Richar Huffman on 05/05/2024 Blood BLOOD SPECIMEN / Unknown IV Start / Unknown 05/03/2024 11:52 PM APARTMENT MANAGER 05/03/2024 11:52 PM APARTMENT MANAGER Anika Mccracken MD LABORATORY Final Resu lt [facility] [address] [place] [address], [place] * (ABNORMAL) MANUAL DIFFERENTIAL (05/03/2024 11:52 PM APARTMENT MANAGER) Only the most recent of3 resultswithin the time period is included. % NEUTROPHILS 55.0 % 05/04/2024 12:13 AM APARTMENT MANAGER [facility] % LYMPHOCYTES 33.0 % 05/04/2024 12:13 AM APARTMENT MANAGER [facility] % MONOCYTES 10.0 % 05/04/2024 12:13 AM APARTMENT MANAGER [facility] % EOSINOPHILS 2.0 % 05/04/2024 12:13 AM APARTMENT MANAGER [facility] % BASOPHILS 0.0 % 05/04/2024 12:13 AM APARTMENT MANAGER [facility] NEUTROPHILS ABSOLUTE 10.6(H) 1.7 - 7.0 thou/cu mm 05/04/2024 12:13 AM APARTMENT MANAGER [facility] LYMPHOCYTES ABSOLUTE 6.3(H) 0.9 - 2.9 thou/cu mm 05/04/2024 12:13 AM APARTMENT MANAGER [facility] MONOCYTES ABSOLUTE 1.9(H) <0.9 thou/cu mm 05/04/2024 12:13 AM APARTMENT MANAGER [facility] EOSINOPHILS ABSOLUTE 0.4 <0.5 thou/cu mm 05/04/2024 12:13 AM APARTMENT MANAGER [facility] BASOPHILS ABSOLUTE 0.0 <0.3 thou/cu mm 05/04/2024 12:13 AM APARTMENT MANAGER [facility] Blood BLOOD SPECIMEN / Unknown IV Start / Unknown 05/03/2024 11:52 PM APARTMENT MANAGER 05/03/2024 11:52 PM APARTMENT MANAGER us Anika Mccracken MD HEMATOLOGY Final Resu lt [facility] [place] [address], * (ABNORMAL) D-DIMER,QUANTITATIVE (05/03/2024 11:52 PM APARTMENT MANAGER) D-DIMER,QUANTI TATIVE 1.51(H) <=0.49 FEU mcg/mL 05/04/2024 12:28 AM APARTMENT MANAGER [facility] Blood BLOOD SPECIMEN / Unknown IV Start / Unknown 05/03/2024 11:52 PM APARTMENT MANAGER 05/03/2024 11:52 PM APARTMENT MANAGER Narrative [facility] - 05/04/2024 12:28 AM APARTMENT MANAGER The cut off value for exclusion of Deep Vein Thrombosis and / or Pulmonary Embolism is 0.50 FEU mcg/mL For patients greater than 50 years of age the upper limit is age dependent and was calculated with the formula: (PATIENT AGE x 0.01) FEU mcg/mL = Upper limit of normal range Anika Mccracken MD HEMATOLOGY Final Resu lt [facility] [address] [place] [address], [place] [phone] * TYPE AND SCREEN ONLY (04/20/2024 4:43 PM APARTMENT MANAGER) Only the most recent of2 resultswithin the time period is included. [facility] A Rh Positive 04/20/2024 5:20 PM APARTMENT MANAGER [facility] Comment:Comment: Performed b y [facility], [address] [place] [address] ANTIBODY SCREEN Negative Negative 04/20/2024 5:20 PM APARTMENT MANAGER [facility] Comment:Comment: Performed b y [facility], [address] [place] [address] SPECIMEN EXPIRATION DATE/TIME 04/23/24 23:59 04/20/2024 5:20 PM APARTMENT MANAGER [facility] Blood BLOOD SPECIMEN / Unknown Butterfly / Unknown 04/20/2024 4:43 PM APARTMENT MANAGER 04/20/2024 4:48 PM APARTMENT MANAGER us Maria Teresa [facility] Final Result [facility] [address] [place] [address], [place] [phone] [facility] [address] [place] [address] * XR ANKLE 3 VIEWS LEFT (04/18/2024 5:09 AM APARTMENT MANAGER) Anatomical Region Laterality Modality ANKLES, ANKLE L Computed Radiogr aphy 04/18/2024 5:09 AM APARTMENT MANAGER Impressions 04/18/2024 5:11 AM APARTMENT MANAGER Normal joint spaces and alignment. No fracture. No significant soft tissue swelling. Ankle mortise intact. Narrative 04/18/2024 5:11 AM APARTMENT MANAGER For Patients: As a result of the Cures Act, medical imaging exams and procedure reports are released immediately into your electronic medical record. You may view this report before your referring provider. If you have questions, please contact your health care provider. EXAM: XR ANKLE 3 VIEWS LEFT LOCATION: [facility] DATE: 04/18/2024 INDICATION: Pain COMPARISON: None. Procedure Note Jayden Correa MD - 04/18/2024 For Patients: As a result of the Cures Act, medical imagingexams and procedure reports are released immediately into your electronicmedical record. You may view this report before your referring provider.If you have questions, please contact your health care provider. EXAM: XR ANKLE 3 VIEWS LEFT LOCATION: [facility] DATE: 04/18/2024 INDICATION: Pain COMPARISON: None. IMPRESSION: Normal joint spaces and alignment. No fracture. No significant soft tissueswelling. Ankle mortise intact. Elizabeth Duffy MD GENERAL IMAGING Final Res ult * C-REACTIVE PROTEIN (04/18/2024 4:59 AM APARTMENT MANAGER) Only the most recent of3 resultswithin the time period is included. C-REACTIVE PROTEIN <0.3 <0.5 mg/dL 04/18/2024 5:43 AM APARTMENT MANAGER [facility] Blood BLOOD SPECIMEN / Unknown Butterfly / Unknown 04/18/2024 4:59 AM APARTMENT MANAGER 04/18/2024 5:02 AM APARTMENT MANAGER Elizabeth Duffy MD CHEMISTRY Final Res ult [facility] [place] [address], [place] [phone] * SEDIMENTATION RATE (04/18/2024 4:58 AM APARTMENT MANAGER) Only the most recent of3 resultswithin the time period is included. SEDIMENTATION RATE 6 <20 mm/hr 2023 5:17 AM APARTMENT MANAGER [facility] Blood BLOOD SPECIMEN / Unknown Butterfly / Unknown 04/18/2024 4:58 AM APARTMENT MANAGER 04/18/2024 5:02 AM APARTMENT MANAGER us Elizabeth Duffy MD HEMATOLOGY Final Res ult [facility] [address] [place] [address], * XR HIP 2 OR 3 VIEWS W PELVIS LEFT (04/15/2024 6:34 PM APARTMENT MANAGER) Anatomical Region Laterality Modality HIPS, HIPL, Pelvis Computed Radi ography 04/15/2024 6:34 PM APARTMENT MANAGER Impressions 04/15/2024 6:46 PM APARTMENT MANAGER No acute fracture or subluxation. Sclerosis of the left femoral head in keeping with osteonecrosis. No articular surface collapse. There is additional patchy sclerosis throughout the pelvis greatest in the right iliac bone which may represent additional osteonecrosis. Hip joint spaces are grossly preserved. 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 Narrative 04/15/2024 6:46 PM APARTMENT MANAGER For Patients: As a result of the Cures Act, medical imaging exams and procedure reports are released immediately into your electronic medical record. You may view this report before your referring provider. If you have questions, please contact your health care provider. EXAM: XR HIP 2 OR 3 VIEWS W PELVIS LEFT LOCATION: [facility] DATE: 04/15/2024 INDICATION: left hip pain, history [...] 3 VIEWS W PELVIS LEFT LOCATION: [facility] DATE: 04/15/2024 INDICATION: left hip pain, history [...] US ABDOMEN LIMITED GALLBLADDER (04/06/2024 9:38 PM APARTMENT MANAGER) Anatomical Region Laterality Modality Abdomen Ultrasound 04/06/2024 9:38 PM APARTMENT MANAGER Impressions 04/06/2024 9:46 PM APARTMENT MANAGER 1. Cholelithiasis. Otherwise negative. Narrative 04/06/2024 9:46 PM APARTMENT MANAGER For Patients: As a result of the Century Cures Act, medical imaging exams and procedure reports are released immediately into your electronic medical record. You may view this report before your referring provider. If you have questions, please contact your health care provider. EXAM: US ABDOMEN LIMITED GALLBLADDER LOCATION: [facility] DATE: 04/06/2024 INDICATION: Right upper quadrant pain [...] provider. EXAM: US ABDOMEN LIMITED GALLBLADDER LOCATION: [facility] DATE: 04/06/2024 INDICATION: Right upper quadrant pain [...] (ABNORMAL) COMP METABOLIC PANEL (04/06/2024 8:55 PM APARTMENT MANAGER) SODIUM 140 136 - 145 mmol/L 04/06/2024 9:20 PM APARTMENT MANAGER [facility] POTASSIUM 4.5 3.5 - 5.1 mmol/L 04/06/2024 9:20 PM APARTMENT MANAGER [facility] CHLORIDE 108(H) 98 - 107 mmol/L 04/06/2024 9:20 PM APARTMENT MANAGER [facility] CO2,TOTAL 21(L) 22 - 29 mmol/L 04/06/2024 9:20 PM APARTMENT MANAGER [facility] ANION GAP 11 5 - 18 04/06/2024 9:20 PM APARTMENT MANAGER [facility] GLUCOSE 103(H) 70 - 99 mg/dL 04/06/2024 9:20 PM APARTMENT MANAGER [facility] CALCIUM 9.6 8.8 - 10.4 mg/dL 04/06/2024 9:20 PM APARTMENT MANAGER [facility] Comment: Reference ranges for this test were updated on 02/29/2024 to reflect our healthy population more accurately. Reference range changes are not retroactively applied to results, but previous results using the same methodology can be interpreted in the context of the new reference range. BUN 8 6 - 20 mg/dL 04/06/2024 9:20 PM APARTMENT MANAGER [facility] CREATININE 0.78 0.50 - 0.90 mg/dL 04/06/2024 9:20 PM APARTMENT MANAGER [facility] BUN/CREAT RATIO 10 10 - 20 9:20 PM APARTMENT MANAGER [facility] eGFR >90 >90 mL/min/1.7 3m2 04/06/2024 9:20 PM APARTMENT MANAGER [facility] Comment:As of 2021, eG FR is calculated by the CKD-EPI creatinine equation without race adjustment. eGFR can be influenced by muscle mass, exercise, and diet. The reported eGFR is an estimation only and is only applicable if the renal function is stable. ALBUMIN 4.7 4.0 - 4.9 g/dL 04/06/2024 9:20 PM APARTMENT MANAGER [facility] PROTEIN,TOTAL 8.6(H) 6.0 - 8.0 g/dL 04/06/2024 9:20 PM APARTMENT MANAGER [facility] BILIRUBIN,TOTAL 1.6(H) 0.0 - 1.2 mg/dL 04/06/2024 9:20 PM APARTMENT MANAGER [facility] ALK PHOSPHATASE 124(H) 35 - 104 IU/L 04/06/2024 9:20 PM APARTMENT MANAGER [facility] ALT (SGPT) 36(H) 10 - 35 IU/L 04/06/2024 9:20 PM APARTMENT MANAGER [facility] AST (SGOT) 37(H) 10 - 35 IU/L 04/06/2024 9:20 PM APARTMENT MANAGER [facility] Blood BLOOD SPECIMEN / Unknown Butterfly / Unknown 04/06/2024 8:55 PM APARTMENT MANAGER 04/06/2024 9:00 PM APARTMENT MANAGER Tanmay Sami S[facility] CHEMISTRY Final R esult [facility] [address] [place] [address], * TROPONIN T (HS) ACUTE W/2HR REFLEX (04/04/2024 6:54 PM APARTMENT MANAGER) TROPONIN T HS <6 6-10 ng/L ng/L 04/04/2024 7:31 PM APARTMENT MANAGER [facility] Blood BLOOD SPECIMEN / Unknown Butterfly / Unknown 04/04/2024 6:54 PM APARTMENT MANAGER 04/04/2024 6:57 PM APARTMENT MANAGER Narrative [facility] - 04/04/2024 7:31 PM APARTMENT MANAGER hs-cTnT (Elecsys Troponin T Gen 5) concentration [...] in emergency department patient population. us Juhi Patel PA CHEMISTRY Final Re sult [facility] [address] [facility] [place] [address], from Last 3 Months Insurance [facility] [place] [id number] [facility] Advance Directives * Full Code (Latest Code Status on File) Date Activated Date Inactivated Comments 03/28/2024 10:36 PM 03/30/2024 11:39 AM Question Answer Comments Code Status Discussion: Reviewed Preferences * Full Code Date Activated Date Inactivated Comments 03/16/2024 1:29 AM 03/18/2024 1:58 PM Question Answer Comments Code Status Discussion: Reviewed Preferences Care Teams Medical Consultant Relationship Specialty Start Date End Date Veronica Joseph MD [address] [place] [address] PCP - General Family Practice 03/29/24
--- OUTSIDE RECORDS SUMMARY | 2024-06-30 22:30 | XMS_ITS | Encounter Summary ---
Author Organization [facility] Address [address] [place] [id number] Care Team Providers Care Die Storage Clerk Name Role Phone No Ref-Primary, Physician Primary Care Provider Mor Ramsey Unavailable Unavailable Case Samuel MD Unavailable [phone] Reason for Visit * Reason Comments Sickle Cell Pain Crisis Encounter Details Date Type Department Care Team (Late st Contact Info) Description 05/19/2024 2:10 AM LIGHT CLEANER - 05/19/2024 6:06 AM [facility] Emergency [facility] Emergency Room [facility] [place] [address] Marilia Summers MD [address] [place] [address] [id number] Sickle cell disease with crisis (H) Discharge [...] on file Legal Sex Female 8:25 AM LIGHT CLEANER Gender Identity Not on file Sexual Orientation Not on file documented as of this encounter Last Filed Vital Signs Vital Sign Reading Time Taken Comments Blood Pressure 110/60 05/19/2024 5:30 AM LIGHT CLEANER Pulse 89 05/19/2024 5:30 AM LIGHT CLEANER Temperature 36.9 C (98.4 F) 05/19/2024 2:16 AM LIGHT CLEANER Respiratory Rate 16 05/19/2024 2:16 AM LIGHT CLEANER Oxygen Saturation 95% 05/19/2024 5:30 AM LIGHT CLEANER Inhaled Oxygen Concentration - - Weight 51.7 kg (114 lb) 05/19/2024 2:16 AM LIGHT CLEANER Height 160 cm (5' 3) 05/19/2024 2:16 AM LIGHT CLEANER Body Mass Index 20.19 05/19/2024 2:16 AM LIGHT CLEANER documented in this encounter Discharge Instructions * Discharge Instructions* Marilia Summers MD - 05/19/2024 6:02 AM LIGHT CLEANER Keep your hematology appointment for the third. Talk with your oncologist about your pain control and what you should do about it while you wait for that appointment. 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 T CLEANER * Attachments The following attachments cannot be [...] as of this encounter ED Notes * Mairlia Summers MD - 05/19/2024 2:30 AM CST Emergency Department Encounter Evaluation Date & Time: 05/19/2024 2:10 AM CHIEF COMPLAINT: Sickle Cell Pain Crisis Triage Note:To ED per POV C/o being in sickle cell crisis which awoke her from sleep. 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 C/o 10 generalized back pain Triage Assessment [...] Docusate, Senna PRN [address] [facility] database for prescriptions. 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 No hat blocker was used. Gianna Hernández is a 29 [...] hCG Serum Qualitative Negative Negative Narrative Lot#: [id number] Exp: 2025-09-28 CBC with platelets and differential [...] Status --------- ------ CBC with platelets and d...[[id number]] Abnormal Final result Manual Differential[[id number]] Abnormal Final result Please view results for these tests on the individual orders. [facility] Documentation Medical Decision Making Obtained [...] with other provider:Did you involve another provider (software consultant, , pharmacy, etc.)?: I discussed the [...] my direction. Marilia Summers MD Emergency Medicine [facility] EMERGENCY ROOM Marilia Summers MD 05/19/24 0607 T CLEANER * Moy Stewart RN - 05/19/2024 2:18 AM CST To ED per POV C/o being in sickle cell crisis which awoke her from sleep. 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 C/o 9/10 generalized back pain Triage Assessment (Adult) Row Name 05/19/24 0217 Triage Assessment Airway WDL WDL Respiratory WDL Respiratory WDL WDL Skin Circulation/Temperature WDL Skin Circulation/Temperature WDL WDL Cardiac WDL Cardiac WDL rhythm Pulse Rate & Regularity tachycardic Peripheral/Neurovascular WDL Peripheral Neurovascular WDL WDL Cognitive/Neuro/Behavioral WDL Cognitive/Neuro/Behavioral WDL WDL T CLEANER documented in this encounter Plan of Treatment Upcoming Encounters Date Type Department Care Team (Late st Contact Info) Description 07/10/2024 11:30 AM CDT Oncology Visit [facility] [address] [place] [address] Case Samuel MD [address] [facility] [address], [address] [place], [place] [address] documented as of this encounter Goals Goal Patient Goal Type Associated Problems Recent Progress Patient-Stated? Author Pain Management General On track( 025 12:40 PM LIGHT CLEANER) Yes Juhi Benson, SOFIA Note: Goal Statement: [...] MANUAL DIFFERENTIAL STAT 05/19/2024 3 :05 AM LIGHT CLEANER CBC WITH PLATELETS AND DIFFERENTIAL STAT 05/19/2024 3:05 AM LIGHT CLEANER CBC WITH PLATELETS & DIFFERENTIAL STAT 05/19/2024 3:05 AM LIGHT CLEANER RETICULOCYTE COUNT STAT 05/19/2024 3: 05 AM LIGHT CLEANER HEPATIC FUNCTION PANEL STAT 05/19/2024 3:05 AM LIGHT CLEANER HCG QUALITATIVE STAT 05/19/2024 3:05 AM LIGHT CLEANER CK TOTAL STAT 05/19/2024 3:05 AM LIGHT CLEANER BASIC METABOLIC PANEL STAT 05/19/2024 3:05 AM LIGHT CLEANER documented in this encounter Results * (ABNORMAL) Manual Differential (05/19/2024 3:05 AM LIGHT CLEANER) % Neutrophils 66 % JARET 05/19/2024 4:12 AM [facility] % Lymphocytes 19 % JARET 05/19/2024 4:12 AM [facility] % Monocytes 11 % JARET 05/19/2024 4:12 AM [facility] % Eosinophils 2 % JARET 05/19/2024 4:12 AM [facility] % Basophils 2 % JARET 05/19/2024 4:12 AM [facility] Absolute Neutrophils 9.6(H) 1.6 - 8.3 10e3/uL JARET 05/19/2024 4:12 AM [facility] Absolute Lymphocytes 2.8 0.8 - 5.3 10e3/uL JARET 05/19/2024 4:12 AM [facility] Absolute Monocytes 1.6(H) 0.0 - 1.3 10e3/uL JARET 05/19/2024 4:12 AM [facility] Absolute Eosinophils 0.3 0.0 - 0.7 10e3/uL JARET 05/19/2024 4:12 AM [facility] Absolute Basophils 0.3(H) 0.0 - 0.2 10e3/uL JARET 05/19/2024 4:12 AM [facility] RBC Morphology Confirmed RBC Indices JARET 05/19/2024 4:12 AM [facility] Platelet Assessment Automated Count Confirmed. Platelet morphology is normal. Automated Count Confirmed. Platelet morphology is normal. JARET 05/19/2024 4:12 AM [facility] Elliptocytes Slight(A) None Seen JARET 05/19/2024 4:12 AM [facility] RBC Fragments Rare(A) None Seen JARET 05/19/2024 4:12 AM [facility] Polychromasia Slight(A) None Seen [facility] 05/19/2024 4:12 AM [facility] Sickle Cells Slight(A) None Seen JARET 05/19/2024 4:12 AM [facility] Target Cells Slight(A) None Seen [facility] 05/19/2024 4:12 AM [facility] Blood VENOUS LINE / Unknown Venipuncture / Unknown 05/19/2024 3:05 AM [facility] 05/19/2024 3:18 AM [facility] Marilia Summers MD LAB - BLOOD ORDERABLES Final Result [facility] [address] [facility] [place] [address], [facility] * (ABNORMAL) CBC with platelets and differential (05/19/2024 3:05 AM [facility]) WBC Count 14.5(H) 4.0 - 11.0 10e3/uL 05/19/2024 4:12 AM [facility] RBC Count 2.45(L) 3.80 - 5.20 10e6/uL 05/19/2024 4:12 AM [facility] Hemoglobin 7.7(L) 11.7 - 15.7 g/dL 05/19/2024 4:12 AM [facility] Hematocrit 22.7(L) 35.0 - 47.0 % 05/19/2024 4:12 AM [facility] MCV 93 78 - 100 fL 05/19/2024 4:12 AM [facility] MCH 31.4 26.5 - 33.0 pg 05/19/2024 4:12 AM [facility] MCHC 33.9 31.5 - 36.5 g/dL 05/19/2024 4:12 AM [facility] RDW 23.0(H) 10.0 - 15.0 % 05/19/2024 4:12 AM [facility] Platelet Count 518(H) 150 - 450 10e3/uL 05/19/2024 4:12 AM [facility] Blood VENOUS LINE / Unknown Venipuncture / Unknown 05/19/2024 3:05 AM LIGHT CLEANER 05/19/2024 3:18 AM LIGHT CLEANER Marilia Summers MD LAB - BLOOD ORDERABLES Final Result Performing Organization Address [facility] Co de Phone Number [facility] [address] [place] [address] PROSPER Munoz [facility], [facility] * HCG QUALitative (blood) (05/19/2024 3:05 AM LIGHT CLEANER) Pathologist [facility] hCG Serum Qualitative Negative Negative JARET 05/19/2024 3:29 AM LIGHT CLEANER [facility] Comment:This test is for scr eening purposes. Results should be interpreted along with the clinical picture. Confirmation testing is available if warranted by ordering [id number], HCG Quantitative . Blood VENOUS LINE / Unknown Venipuncture / Unknown 05/19/2024 3:05 AM LIGHT CLEANER 05/19/2024 3:18 AM LIGHT CLEANER Narrative [facility] - 05/19/2024 3:29 AM LIGHT CLEANER Lot#: [id number] Exp: 2025-09-28 us Marilia Summers MD LAB - BLOOD ORDERABLES Final Result Performing Organization Address [facility] Co de Phone Number [facility] [address] [place], [place] [address] PROSPER Munoz [facility], [facility] * (ABNORMAL) CK total (05/19/2024 3:05 AM LIGHT CLEANER) [facility] CK 240(H) 26 - 192 U/L 05/19/2024 3:37 AM LIGHT CLEANER [facility] Blood VENOUS LINE / Unknown Venipuncture / Unknown 05/19/2024 3:05 AM LIGHT CLEANER 05/19/2024 3:18 AM LIGHT CLEANER Marilia Summers MD LAB - BLOOD ORDERABLES Final Result Performing Organization Address [facility] Co de Phone Number [facility] [address] [place] [address] PROSPER Munoz [facility], [facility] * (ABNORMAL) Hepatic function panel (05/19/2024 3:05 AM LIGHT CLEANER) Pathologist [facility] Protein Total 7.9 6.4 - 8.3 g/dL 05/19/2024 3:37 AM [facility] Albumin 4.3 3.5 - 5.2 g/dL 05/19/2024 3:37 AM [facility] Bilirubin Total 2.6(H) <=1.2 mg/dL 05/19/2024 3:37 AM [facility] Alkaline Phosphatase 128 40 - 150 U/L 05/19/2024 3:37 AM [facility] AST 67(H) 0 - 45 U/L 05/19/2024 3:37 AM [facility] ALT 39 0 - 50 U/L 05/19/2024 3:37 AM [facility] Bilirubin Direct 0.65(H) 0.00 - 0.30 mg/dL 05/19/2024 3:37 AM [facility] Blood VENOUS LINE / Unknown Venipuncture / Unknown 05/19/2024 3:05 AM [facility] 05/19/2024 3:18 AM [facility] us Marilia Summers MD LAB - BLOOD ORDERABLES Final Result [facility] [address] [facility] [address] [place] [address], [facility] * (ABNORMAL) Basic metabolic panel (05/19/2024 3:05 AM [facility]) Sodium 137 135 - 145 mmol/L 05/19/2024 3:37 AM [facility] Potassium 4.2 3.4 - 5.3 mmol/L 05/19/2024 3:37 AM [facility] Chloride 107 98 - 107 mmol/L 05/19/2024 3:37 AM [facility] Carbon Dioxide (CO2) 20(L) 22 - 29 mmol/L 05/19/2024 3:37 AM [facility] Anion Gap 10 7 - 15 mmol/L 05/19/2024 3:37 AM [facility] Urea Nitrogen 11.2 6.0 - 20.0 mg/dL 05/19/2024 3:37 AM [facility] Creatinine 0.81 0.51 - 0.95 mg/dL 05/19/2024 3:37 AM [facility] GFR Estimate >90 >60 mL/min/1.7 3m2 05/19/2024 3:37 AM [facility] Comment:eGFR calculated usin 2020 CKD-EPI equation. Calcium 9.1 8.8 - 10.4 mg/dL 05/19/2024 3:37 AM [facility] Comment:Reference intervals for this test were updated on 11/09/2023 to reflect our healthy population more accurately. There may be differences in the flagging of prior results with similar values performed with this method. Those prior results can be interpreted in the context of the updated reference intervals. Glucose 99 70 - 99 mg/dL 05/19/2024 3:37 AM [facility] Blood VENOUS LINE / Unknown Venipuncture / Unknown 05/19/2024 3:05 AM LIGHT CLEANER 05/19/2024 3:18 AM LIGHT CLEANER us Marilia Summers MD LAB - BLOOD ORDERABLES Final Result Performing Organization Address [facility] de Phone Number [facility] [address] [place], [place] [address] PROSPER Munoz [facility], [place] * (ABNORMAL) Reticulocyte count (05/19/2024 3:05 AM LIGHT CLEANER) [facility] % Reticulocyte 23.3(H) 0.5 - 2.0 % 05/19/2024 3:47 AM [facility] Absolute Reticulocyte 0.550(H) 0.025 - 0.095 10e6/uL 05/19/2024 3:47 AM [facility] Blood VENOUS LINE / Unknown Venipuncture / Unknown 05/19/2024 3:05 AM LIGHT CLEANER 05/19/2024 3:18 AM LIGHT CLEANER us Marilia Summers MD LAB - BLOOD ORDERABLES Final Result Performing Organization Address [facility] Co de Phone Number [facility] [address] [place] [address] PROSPER Munoz [id number], [facility] documented in this encounter [...] For 1 dose $Given 05/19/2024 3:10 AM LIGHT CLEANER 25 mg diphenhydrAMINE (BENADRYL) injection 25 mg 25 mg, Intravenous, ONCE, On Wed05/19/24 at 0530, For 1 dose $Given 05/19/2024 5:17 AM LIGHT CLEANER 25 mg HYDROmorphone (DILAUDID) injection 2 mg 2 mg, Intravenous, EVERY 1 HOUR PRN, moderate pain, Starting on Wed05/19/24 at 0241, For 3 doses $Given 05/19/2024 5:30 AM LIGHT CLEANER 2 mg $Given 05/19/2024 4:19 AM LIGHT CLEANER 2 mg $Given 05/19/2024 3:10 AM LIGHT CLEANER 2 mg lactated ringers BOLUS 1,000 mL Intravenous, 1,000 mL, ONCE, at 500 mL/hr, Administer over 2 Hours, On Wed05/19/24 at 0300, For 1 dose Rate/Dose Verify 05/19/2024 4:24 AM LIGHT CLEANER 500 mL/hr $New Bag 05/19/2024 3:15 AM LIGHT CLEANER 1,000 mLs 500 mL/hr ondansetron (ZOFRAN) injection 8 mg 8 mg, Intravenous, ONCE, Administer over 2-5 Minutes, On Wed05/19/24 at 0530, For 1 dose $Given 05/19/2024 5:17 AM LIGHT CLEANER 8 mg documented in this encounter Active and Recently Administered Medications Times are shown in LIGHT CLEANER. Scheduled Medication Order 05/17/2024 05/18/2024 05/19/2024 diphenhydrAMINE [...] ($Given - Provi nas: Cj Stewart RN) PRN Medication Order 05/17/2024 05/18/2024 05/19/2024 HYDROmorphone (DILAUDID) injection 2 mg (COMPLETED) 2 mg, Intravenous, EVERY 1 HOUR PRN, moderate pain, Starting on Wed05/19/24 at 0241, For 3 doses 0310 ($Given - Provi nas: Cj Stewart RN)0419 ($Given - Provider: Cj Stewart RN)0530 ($Given - Provider: Cj Stewart RN) documented in this encounter Care Teams Die Storage Clerk Relationship Specialty Start Date End Date No Ref-Primary, Physician PCP - General 03/15/24 06/17/24 Mor Ramsey Medical Student 04/03/24 Case Samuel MD [address] [place] [address], [address] [place] [address] Assigned Pediatric Specialist Provider 05/18/24 documented as of this encounter
--- OUTSIDE RECORDS SUMMARY | 2024-06-30 22:30 | XMS_ITS | Encounter Summary ---
Author Organization [place] Address [address] [place] [address] Care Team Providers Care Bank Guard Name Role Phone No Ref-Primary, Physician Primary Care Provider Mor Ramsey Unavailable Unavailable Reason for Visit * Reason Comments Sickle Cell Pain Crisis Encounter Details Date Type Department Care Team ([facility] st Contact Info) Description 05/16/2024 9:41 PM CONTACT CLERK - 05/17/2024 12:53 AM [facility] Emergency [facility] Emergency Room [facility] [place] [address] Guille Davis, DO [address] [place] [id number] Sickle cell pain crisis (H) Discharge [...] on file Legal Sex Female 8:25 AM CONTACT CLERK Gender Identity Not on file Sexual Orientation Not on file documented as of this encounter Last Filed Vital Signs Vital Sign Reading Time Taken Comments Blood Pressure 107/62 05/17/2024 12:00 AM CONTACT CLERK Pulse 93 05/17/2024 12:00 AM CONTACT CLERK Temperature 36.8 C (98.3 F) 05/16/2024 9:35 PM CONTACT CLERK Respiratory Rate 15 05/17/2024 12:00 AM CONTACT CLERK Oxygen Saturation 94% 05/17/2024 12:00 AM CONTACT CLERK Inhaled Oxygen Concentration - - Weight 52.2 kg (115 lb) 05/16/2024 9:35 PM CONTACT CLERK Height 154.9 cm (5' 1) 05/16/2024 9:35 PM CONTACT CLERK Body Mass Index 21.73 05/16/2024 9:35 PM CONTACT CLERK documented in this encounter Discharge Instructions * [...] being printed. States she doesn't need them. ACT CLERK * Obie Schofield RN - 05/17/2024 12:16 AM CST Pt says she'll be good for discharge after this 3rd dose of Dilaudid. Provider notified. Pt is vitally stable and pain under control and ok with the plan of care. All questions were answered. ACT CLERK * Obie Schofield RN - 05/16/2024 11:40 PM CST Pt received 2nd dose of Dilaudid. Pt says the 1st dose has helped with her pain, bringing it down to 7/10 from 9/10. She has relief from itchiness following Benadryl as well. Pt is resting in bed, onher phone, and denies other needs at this time. On continuous pulse ox. ACT CLERK * Guille Davis DO - 05/16/2024 9:53 [...] with other provider:Did you involve another provider (trousseau consultant, , pharmacy, etc.)?: No Discharge. No [...] Currently Drug use: Never Social History Narrative [id number] mom. Recently moved to [place] from [place], [place]. She is 1 [...] (03/28/2024) Received from [facility] Social Connections Do you often feel lonely [...] the Xpert Xpress CoV2/Flu/RSV Assay on the Netform[employer] GeneXpert Instrument. This test should be ordered [...] management. This test was validated by the [facility]. These laboratories are certified under the Clinical Laboratory Improvement Amendments of 1988 (CLIA-88) as qualified to perfom high complexity laboratory testing. CBC with platelets + differential Narrative The following orders were created for panel order CBC with platelets + differential. Procedure Abnormality Status --------- ------ CBC with platelets and d...[[id number]] Abnormal Final result RBC and Platelet Morphology[[id number]] Abnormal Final result Please view results for [...] on file Guille Davis D.O. Emergency Medicine [facility] EMERGENCY ROOM [facility] [facility] [id number] Dept: [phone] Guille Davis DO 05/17/24 0048 ACT CLERK * Aminata Farley RN - 05/16/2024 9:37 [...] WDL WDL Cognitive/Neuro/Behavioral WDL Cognitive/Neuro/Behavioral WDL WDL [place] Coma Scale Best Eye Response 4-->(E4) spontaneous Best Motor Response 6-->(M6) obeys commands Best Verbal Response 5-->(V5) oriented Lester Coma Scale Score 15 ACT CLERK documented in this encounter Plan of Treatment Upcoming Encounters Date Type Department Care Team (Late st Contact Info) Description 07/10/2024 11:30 AM CDT Oncology Visit [facility] [address] [place] [address] Case Samuel MD [address] [facility] [address], [address] [place] [address] documented as of this encounter Goals Goal Patient Goal Type Associated Problems Recent Progress Patient-Stated? Author Pain Management General On track( 025 12:40 PM CONTACT CLERK) Yes Juhi Benson, SOFIA Note: Goal [...] AND PLATELET MORPHOLOGY STAT 05/16/2024 10:17 PM CONTACT CLERK CBC WITH PLATELETS AND DIFFERENTIAL STAT 05/16/2024 10:17 PM CONTACT CLERK CBC WITH PLATELETS & DIFFERENTIAL STAT 05/16/2024 10:17 PM CONTACT CLERK BASIC METABOLIC PANEL STAT 05/16/2024 10:17 PM CONTACT CLERK INFLUENZA A/B, RSV AND SARS-COV2 PCR STAT 05/16/2024 10:00 PM CONTACT CLERK documented in this encounter Results * (ABNORMAL) RBC and Platelet Morphology (05/16/2024 10:17 PM CONTACT CLERK) Pathologist [facility] RBC Morphology Confirmed RBC Indices 05/16/2024 10:54 PM CONTACT CLERK [facility] Platelet Assessment Automated Count Confirmed. Platelet morphology is normal. Automated Count Confirmed. Platelet morphology is normal. JARET 05/16/2024 10:54 PM CONTACT CLERK [facility] Polychromasia Slight(A) None Seen JARET 05/16/2024 10:54 PM CONTACT CLERK [facility] Reactive Lymphocytes Present(A) None Seen JARET 05/16/2024 10:54 PM CONTACT CLERK [facility] Sickle Cells Moderate(A) None Seen JARET 05/16/2024 10:54 PM CONTACT CLERK [facility] Target Cells Slight(A) None Seen [facility] 05/16/2024 10:54 PM CONTACT CLERK [facility] Blood BLOOD SPECIMEN / Unknown Venipuncture / Unknown 05/16/2024 10:17 PM CONTACT CLERK 05/16/2024 10:24 PM CONTACT CLERK us Guille Davis DO LAB - BLOOD ORDERABLES Fin al Result [facility] [address] [place] [address], [facility] * (ABNORMAL) CBC with platelets and differential (05/16/2024 10:17 PM CONTACT CLERK) Pathologist [facility] WBC Count 14.0(H) 4.0 - 11.0 10e3/uL 05/16/2024 10:50 PM CONTACT CLERK [facility] RBC Count 2.40(L) 3.80 - 5.20 10e6/uL 05/16/2024 10:50 PM [facility] Hemoglobin 7.7(L) 11.7 - 15.7 g/dL 05/16/2024 10:50 PM [facility] Hematocrit 21.8(L) 35.0 - 47.0 % 05/16/2024 10:50 PM [facility] MCV 91 78 - 100 fL 05/16/2024 10:50 PM [facility] MCH 32.1 26.5 - 33.0 pg 05/16/2024 10:50 PM [facility] MCHC 35.3 31.5 - 36.5 g/dL 05/16/2024 10:50 PM [facility] RDW 22.4(H) 10.0 - 15.0 % 05/16/2024 10:50 PM [facility] Platelet Count 521(H) 150 - 450 10e3/uL 05/16/2024 10:50 PM [facility] % Neutrophils 55 % 05/16/2024 10:50 PM [facility] % Lymphocytes 25 % 05/16/2024 10:50 PM [facility] % Monocytes 16 % 05/16/2024 10:50 PM [facility] % Eosinophils 1 % 05/16/2024 10:50 PM [facility] % Basophils 1 % 05/16/2024 10:50 PM [facility] % Immature Granulocytes 1 % 05/16/2024 10:50 PM [facility] NRBCs per 100 WBC 2(H) <1 /100 025 10:50 PM [facility] Absolute Neutrophils 7.7 1.6 - 8.3 10e3/uL 05/16/2024 10:50 PM [facility] Absolute Lymphocytes 3.6 0.8 - 5.3 10e3/uL 05/16/2024 10:50 PM [facility] Absolute Monocytes 2.3(H) 0.0 - 1.3 10e3/uL 05/16/2024 10:50 PM [facility] Absolute Eosinophils 0.2 0.0 - 0.7 10e3/uL 05/16/2024 10:50 PM [facility] Absolute Basophils 0.1 0.0 - 0.2 10e3/uL 05/16/2024 10:50 PM [facility] Absolute Immature Granulocytes 0.1 <=0.4 10e3/uL 05/16/2024 10:50 PM [facility] Absolute NRBCs 0.3 10e3/uL 05/16/2024 10:50 PM [facility] Blood BLOOD SPECIMEN / Unknown Venipuncture / Unknown 05/16/2024 10:17 PM CONTACT CLERK 05/16/2024 10:24 PM CONTACT CLERK Guille Davis DO LAB - BLOOD ORDERABLES Fin al Result [facility] [address] [place] [address], [facility] * (ABNORMAL) Basic metabolic panel (05/16/2024 10:17 PM CONTACT CLERK) Sodium 138 135 - 145 mmol/L 05/16/2024 10:42 PM [facility] Potassium 4.3 3.4 - 5.3 mmol/L 05/16/2024 10:42 PM [facility] Chloride 105 98 - 107 mmol/L 05/16/2024 10:42 PM [facility] Carbon Dioxide (CO2) 22 22 - 29 mmol/L 05/16/2024 10:42 PM [facility] Anion Gap 11 7 - 15 mmol/L 05/16/2024 10:42 PM [facility] Urea Nitrogen 12.0 6.0 - 20.0 mg/dL 05/16/2024 10:42 PM [facility] Creatinine 0.80 0.51 - 0.95 mg/dL 05/16/2024 10:42 PM [facility] GFR Estimate >90 >60 mL/min/1.7 3m2 05/16/2024 10:42 PM [facility] Comment:eGFR calculated usin 2020 CKD-EPI equation. Calcium 8.7(L) 8.8 - 10.4 mg/dL 05/16/2024 10:42 PM [facility] Comment:Reference intervals for this test were updated on 11/09/2023 to reflect our healthy population more accurately. There may be differences in the flagging of prior results with similar values performed with this method. Those prior results can be interpreted in the context of the updated reference intervals. Glucose 118(H) 70 - 99 mg/dL 05/16/2024 10:42 PM [facility] Blood BLOOD SPECIMEN / Unknown Venipuncture / Unknown 05/16/2024 10:17 PM CONTACT CLERK 05/16/2024 10:24 PM CONTACT CLERK Guille Davis DO LAB - BLOOD ORDERABLES Fin al Result Performing Organization Address City/Va Hospital/ZIP Co de Phone Number [facility] [address] [place] [address], [facility] * Influenza A/B, RSV and SARS-CoV2 PCR (COVID-19) Nasopharyngeal (05/16/2024 10:00 PM CONTACT CLERK) Influenza A PCR Negative Negative 05/16/2024 10:46 PM CONTACT CLERK [facility] Influenza B PCR Negative Negative 05/16/2024 10:46 PM CONTACT CLERK [facility] RSV PCR Negative Negative 05/16/2024 10:46 PM CONTACT CLERK [facility] SARS CoV2 PCR Negative Negative 05/16/2024 10:46 PM CONTACT CLERK [facility] Comment:NEGATIVE: SARS-CoV-2 (COVID-19) RNA not detected, presumed negative. Swab NASOPHARYNGEAL STRUCTURE / Unknown Non-blood Collection / Unknown 05/16/2024 10:00 PM CONTACT CLERK 05/16/2024 10:02 PM CONTACT CLERK Narrative [facility] - 05/16/2024 10:46 PM CONTACT CLERK Testing was performed using the Xpert Xpress CoV2/Flu/RSV Assay on the Netform[employer] GeneXpert Instrument. This test should be ordered [...] management. This test was validated by the [facility]. These laboratories are certified under the Clinical Laboratory Improvement Amendments of 1988 (CLIA-88) as qualified to perfom high complexity laboratory testing. Guille Davis DO LAB - MICRO GENERAL ORDERA BLES Final Result Performing Organization Address City/Va Hospital/ZIP Co de Phone Number [facility] [address] [place] [address], [facility] documented in this encounter Visit Diagnoses Diagnosis 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 documented in this encounter Administered Medications Inactive Administered Medications - up to 3 most recent administrations Medication Order MAR Action Action Date Dose Rate Site diphenhydrAMINE (BENADRYL) injection 50 mg 50 mg, Intravenous, ONCE, On Wed05/16/24 at 2200, For 1 dose $Given 05/16/2024 10:37 PM CONTACT CLERK 50 mg HYDROmorphone (DILAUDID) injection 1 mg 1 mg, Intravenous, ONCE, On Wed05/16/24 at 2200, For 1 dose $Given 05/16/2024 10:37 PM CONTACT CLERK 1 mg HYDROmorphone (DILAUDID) injection 1 mg 1 mg, Intravenous, ONCE, On Wed05/17/24 at 0000, For 1 dose $Given 05/16/2024 11:37 PM CONTACT CLERK 1 mg HYDROmorphone (DILAUDID) injection 1 mg 1 mg, Intravenous, ONCE, On Wed05/17/24 at 0030, For 1 dose $Given 05/17/2024 12:13 AM CONTACT CLERK 1 mg documented in this encounter Active and Recently Administered Medications Times are shown in CONTACT CLERK. Scheduled Medication Order 05/15/2024 05/16/2024 05/17/2024 diphenhydrAMINE [...] Out COVID-19 05/16/2024 05/16/2024 05/16/2024 10:46 PM CONTACT CLERK documented as of this encounter Care Teams Bank Guard Relationship Specialty Start Date End Date No Ref-Primary, Physician PCP - General 03/15/24 06/17/24 Mor Ramsey Medical Student 04/03/24 documented as of this encounter
--- OUTSIDE RECORDS SUMMARY | 2024-06-30 22:31 | XMS_ITS | Encounter Summary ---
Author Organization [place] Address [address] [place] [address]. [place] [address] Care Team Providers Care Activities Therapist Name Role Phone No Ref-Primary, Physician Primary Care Provider Mor Ramsey Unavailable Unavailable Case Samuel MD Unavailable [phone] Encounter Details Date Type Department Care Team [...] on file Legal Sex Female 8:25 AM CASINO INVESTIGATOR Gender Identity Not on file Sexual Orientation Not on file documented as of this encounter Plan of Treatment Upcoming Encounters Date Type Department Care Team (Late st Contact Info) Description 07/10/2024 11:30 AM CDT Oncology Visit [facility] [address] [place] [phone] Case Samuel MD [address] [place] [address] [address], [address] [place] [address] documented as of this encounter Goals Goal Patient Goal Type Associated Problems Recent Progress Patient-Stated? Author Pain Management General On track( 025 12:40 PM CASINO INVESTIGATOR) Yes Juhi Benson, RN Note: Goal Statement: [...] on filedocumented in this encounter Care Teams Activities Therapist Relationship Specialty Start Date End Date No Ref-Primary, Physician PCP - General 03/15/24 06/17/[address] [facility] Medical Student 04/03/24 Case Samuel MD [address] [place] [address], [address] [place] [address] Assigned Pediatric Specialist Provider 05/18/24 documented as of this encounter
--- OUTSIDE RECORDS SUMMARY | 2024-06-30 22:31 | XMS_ITS | Encounter Summary ---
Author Organization [place] Address [address] [place] [address]. [place] [address] Care Team Providers Care Electric Power Superintendent Name Role Phone No Ref-Primary, Physician Primary Care Provider Mor Ramsey Unavailable Unavailable Case Samuel MD Unavailable [phone] Encounter Details Date Type Department Care Team [...] on file Legal Sex Female 8:25 AM NURSING STAFFING COORDINATOR Gender Identity Not on file Sexual Orientation Not on file documented as of this encounter Plan of Treatment Upcoming Encounters Date Type Department Care Team (Late st Contact Info) Description 07/10/2024 11:30 AM CDT Oncology Visit [facility] [address] [place] [phone] Case Samuel MD [address] [place] [address] [address], [address] [place] [address] documented as of this encounter Goals Goal Patient Goal Type Associated Problems Recent Progress Patient-Stated? Author Pain Management General On track( 025 12:40 PM NURSING STAFFING COORDINATOR) Yes Juhi Benson, RN Note: Goal [...] on filedocumented in this encounter Care Teams Electric Power Superintendent Relationship Specialty Start Date End Date No Ref-Primary, Physician PCP - General 03/15/24 06/17/24 Roxy [facility] Medical Student 04/03/24 Case Samuel MD [address] [place] [address] [address], [address] [place] [address] Assigned Pediatric Specialist Provider 05/18/24 documented as of this encounter
--- OUTSIDE RECORDS SUMMARY | 2024-06-30 22:31 | XMS_ITS | Encounter Summary ---
Author Organization [place] [facility] Address [address] [place] [id number] Care Team Providers Care Tank Washer Name Role Phone No Ref-Primary, Physician Primary Care Provider Mor Ramsey Unavailable Unavailable Case Samuel MD Unavailable [phone] Reason for Visit * Reason Comments Abdominal Pain ULQ Encounter Details Date Type Department Care Team (Late st Contact Info) Description 05/23/2024 9:03 PM CONTACT LENS MANUFACTURER - 05/23/2024 11:[address] [facility] Emergency [facility] Emergency Room [facility] [place] [address] Marilia Summers MD [address] [place] [address] [id number] Sickle cell pain crisis (H); Leukocytosis, unspecified [...] file Legal Sex Female 8:25 AM CONTACT LENS MANUFACTURER Gender Identity Not on file Sexual Orientation Not on file documented as of this encounter Last Filed Vital Signs Vital Sign Reading Time Taken Comments Blood Pressure 123/71 05/23/2024 9:53 PM CONTACT LENS MANUFACTURER Pulse 95 05/23/2024 9:53 PM CONTACT LENS MANUFACTURER Temperature 37.7 C (99.9 F) 05/23/2024 4:48 PM CONTACT LENS MANUFACTURER Respiratory Rate 18 05/23/2024 4:48 PM CONTACT LENS MANUFACTURER Oxygen Saturation 98% 05/23/2024 9:53 PM CONTACT LENS MANUFACTURER Inhaled Oxygen Concentration - - Weight 51.7 kg (114 lb) 05/23/2024 4:48 PM CONTACT LENS MANUFACTURER Height 154.9 cm (5' 1) 05/23/2024 4:48 PM CONTACT LENS MANUFACTURER Body Mass Index 21.54 05/23/2024 4:48 PM CONTACT LENS MANUFACTURER documented in this encounter Discharge Instructions * Discharge Instructions* Marilia Summers MD - 05/23/2024 10:34 PM CONTACT LENS MANUFACTURER Keep your appointment for your port in 2 days. Continue to work with oncology/hematology on pain control. The Lidoderm patch helps with the area of pain underneath your left breast on the chest wall, you can get [id number] muscle pain patches that have the same numbing medicine in them and put it on for 12 hours at a time to help with your discomfort. Obviously return to the emergency department as needed if you are having difficulty with breathing. ACT LENS MANUFACTURER * Attachments The following attachments cannot be sent through Care Everywhere. * Sickle Cell Crisis (Belgian) documented in this encounter Medications at Time [...] /chest pain. Seen for similar last night ACT LENS MANUFACTURER * Marilia Summers MD - 05/23/2024 6:24 [...] she notes the plan discussed with the oncologist/financial analyst is to do 3 times a week [...] of chest pain. Misti moved here [facility] a fewmonths ago and since that time has been seen in the emergency department greater than 40 times. She was seen here yesterday, May 21, 2019, , , , , 18, 13th, 12th, 11th, 10th, eighth, seventh twice, on the sixth she was seen by oncology at the [facility] ER forthe first time, also in the ER [...] CT CHEST PULMONARY EMBOLISM W CONTRAST LOCATION: [facility] DATE: 05/23/2024 INDICATION: patient with sickle cell. acute chest pain similar to pe in the past. COMPARISON: Chest x-ray 05/22/2024, CTA chest 05/04/2024 and 03/15/2024. Report of CT chest from [facility] [facility] from 03/13/2023 is also available. [...] Rate 77 BPM Atrial Rate [address] Interval 160 ms QRS Duration 82 ms QT 362 ms QTc 409 ms P Mittie 61 degrees R AXIS 92 degrees T Mittie 49 degrees Interpretation ECG Sinus rhythm Rightward axis Borderline ECG When compared with ECG of 22-May-2024 15:14, Nonspecific T wave abnormality no longer evident in Inferior leads Confirmed by SEE ED PROVIDER NOTE FOR, ECG INTERPRETATION (4000), film editor supervisor SELMA GARRISON ([id number]) on 05/23/2024 7:30:33 PM ECG: Performed at: 1854 Impression: nsr rate of 77, wandering baseline somewhat limits exam. R axis. Pr 160ms, qrs 82ms, qtc 409ms, prt axes 61 92 49. Compared to 05/22/[address] segments in inferior limb leads no longer present. I have independently reviewed and interpreted the EKS(s) documented above PROCEDURES: Procedures: [facility] Documentation Medical Decision Making Obtained supplemental [...] other provider:Did you involve another provider (sap security consultant, , pharmacy, etc.)?: No Discharge. I prescribed additional prescription strength medication(s) as charted. See documentation for any additional details. MIPS: Not Applicable Marilia Summers MD Emergency Medicine [facility] EMERGENCY ROOM Marilia Summers MD 05/23/24 [id number] ACT LENS MANUFACTURER * Carmen Elkins RN - 05/23/2024 4:51 PM CST Pt arrives with c/o abdominal pain (ULQ). Pt seen here yesterday for the same pain and sickle cell pain. Reports feeling better when she left yesterday but now pain is back. Temp: 99.9 ACT LENS MANUFACTURER documented in this encounter Plan of Treatment Upcoming Encounters Date Type Department Care Team (Late st Contact Info) Description 07/10/2024 11:30 AM CDT Oncology Visit [facility] [address] [place] [address] Case Samuel MD [address] [place] [address], [address] [place], [place] [phone] documented as of this encounter Goals Goal Patient Goal Type Associated Problems Recent Progress Patient-Stated? Author Pain Management General On track( 025 12:40 PM CONTACT LENS MANUFACTURER) Yes Juhi Benson, RN Note: Goal Statement: [...] EMBOLISM W CONTRAST STAT 05/23/2024 9:33 PM CONTACT LENS MANUFACTURER TROPONIN T, HIGH SENSITIVITY STAT 05/23/2024 9:02 PM CONTACT LENS MANUFACTURER RETICULOCYTE COUNT STAT 05/23/2024 9: 02 PM CONTACT LENS MANUFACTURER N TERMINAL PRO BNP OUTPATIENT STAT 05/23/2024 9:02 PM CONTACT LENS MANUFACTURER CBC WITH PLATELETS STAT 05/23/2024 9: 02 PM CONTACT LENS MANUFACTURER ECG 12-LEAD WITH MUSE SJN,SJO,WWH STAT 05/23/2024 6:54 PM CONTACT LENS MANUFACTURER documented in this encounter Results * CT Chest Pulmonary Embolism w Contrast (05/23/2024 9:33 PM CONTACT LENS MANUFACTURER) Anatomical Region Laterality Modality Chest, SUBRAD CT BODY, [facility] CT CHEST Computed Tomography 05/23/2024 9:33 PM CONTACT LENS MANUFACTURER Impressions 05/23/2024 10:12 PM CONTACT LENS MANUFACTURER IMPRESSION: 1. Bilateral pulmonary nodules stable since [...] as noted above. Narrative 05/23/2024 10:12 PM CONTACT LENS MANUFACTURER EXAM: CT CHEST PULMONARY EMBOLISM W CONTRAST LOCATION: [facility] DATE: 05/23/2024 INDICATION: patient with sickle cell. acute chest pain similar to pe in the past. COMPARISON: Chest x-ray 05/22/2024, CTA chest 05/04/2024 and 03/15/2024. [facility]20[facility] is also available. [...] CT CHEST PULMONARY EMBOLISM W CONTRAST LOCATION: [facility] DATE: 05/23/2024 INDICATION: patient with sickle cell. acute chest pain similar to pe inthe past. COMPARISON: Chest x-ray 05/22/2024, CTA chest 05/04/2024 and 03/15/2024.[facility] is alsoavailable. TECHNIQUE: [...] as noted above. us Marilia Summers MD [facility] CT ORDERABLES Final Resu lt * N terminal pro BNP outpatient (05/23/2024 9:02 PM CONTACT LENS MANUFACTURER) N Terminal Pro BNP Outpatient 74 [id number] - 450 pg/mL 05/23/2024 9:39 PM CONTACT LENS MANUFACTURER [facility] Comment: Reference range shown [...] Unknown Venipuncture / Unknown 05/23/2024 9:02 PM CONTACT LENS MANUFACTURER 05/23/2024 9:10 PM CONTACT LENS MANUFACTURER Marilia Summers MD LAB - BLOOD ORDERABLES Final Result Performing Organization Address [facility] Co de Phone Number [facility] [address] [place] [address] PROSPER Munoz [phone], [facility] * Troponin T, High Sensitivity (05/23/2024 9:02 PM CONTACT LENS MANUFACTURER) Troponin T, High Sensitivity <6 <=14 ng/L 05/23/2024 9:39 PM CONTACT LENS MANUFACTURER [facility] Comment: Either a High [...] Unknown Venipuncture / Unknown 05/23/2024 9:02 PM CONTACT LENS MANUFACTURER 05/23/2024 9:10 PM CONTACT LENS MANUFACTURER us Marilia Summers MD LAB - BLOOD ORDERABLES Final Result Performing Organization Address [facility] Co de Phone Number [facility] [address] [place] [address] PROSPER Munoz [id number], [facility] * (ABNORMAL) Reticulocyte count (05/23/2024 9:02 PM CONTACT LENS MANUFACTURER) % Reticulocyte 28.1(H) 0.5 - 2.0 % 05/23/2024 9:35 PM [facility] Absolute Reticulocyte 0.698(H) 0.025 - 0.095 10e6/uL 05/23/2024 9:35 PM [facility] Blood BLOOD SPECIMEN / Unknown Venipuncture / Unknown 05/23/2024 9:02 PM CONTACT LENS MANUFACTURER 05/23/2024 9:[address] [facility] us Marilia Summers MD LAB - BLOOD ORDERABLES Final Result [facility] [address] [place] [address], [facility] * (ABNORMAL) CBC (+ platelets, no diff) (05/23/2024 9:[address] [facility]) WBC Count 17.2(H) 4.0 - 11.0 10e3/uL [...] Unknown Venipuncture / Unknown 05/23/2024 9:02 PM CONTACT LENS MANUFACTURER 05/23/2024 9:10 PM CONTACT LENS MANUFACTURER us Marilia Summers MD LAB - BLOOD ORDERABLES Final Result [facility] [address] [place] [address], [facility] * ECG 12-LEAD WITH MUSE (LHE) (05/23/2024 6:54 PM CONTACT LENS MANUFACTURER) Systolic Blood Pressure mmHg RADIOLOGY RESULTS Diastolic Blood Pressure mmHg RADIOLOGY RESULTS Ventricular Rate 77 BPM RAD IOLOGY RESULTS Atrial Rate 77 BPM RADIOLOG Y RESULTS CT Interval 160 ms RADIOLOG Y RESULTS QRS Duration 82 ms RADIOLO GY RESULTS QT 362 ms RADIOLOGY RESULTS QTc 409 ms RADIOLOGY RESULTS P Mittie 61 degrees RADIOLOGY RESULTS R AXIS 92 degrees RADIOLOGY RESULTS T Mittie 49 degrees RADIOLOGY RESULTS Interpretation ECG Sinus rhythm Rightward axis Borderline ECG When compared with ECG of 22-May-2024 15:14, Nonspecific T wave abnormality no longer evident in Inferior leads Confirmed by SEE ED PROVIDER NOTE FOR, ECG INTERPRETATION (4000), film editor supervisor SELMA GARRISON ([id number]) on 05/23/2024 7:30:33 PM RADIOLOGY RESULTS 05/23/2024 6:54 PM CONTACT LENS MANUFACTURER 05/23/2024 7:30 PM CONTACT LENS MANUFACTURER us Marilia Summers MD ECG ORDERABLES Edited [...] For 1 dose $Given 05/23/2024 10:03 PM CONTACT LENS MANUFACTURER 50 mg HYDROmorphone (DILAUDID) injection 2 mg 2 mg, Intravenous, EVERY 1 HOUR PRN, moderate pain, Starting on Wed05/23/24 at 2115, For 2 doses $Given 05/23/2024 10:21 PM CONTACT LENS MANUFACTURER 2 mg $Given 05/23/2024 9:18 PM CONTACT LENS MANUFACTURER 2 mg HYDROmorphone (DILAUDID) injection 2 mg 2 mg, Intravenous, ONCE, On Wed05/23/24 at 2330, For 1 dose $Given 05/23/2024 11:20 PM CONTACT LENS MANUFACTURER 2 mg iopamidol (ISOVUE-370) solution 75 mL 75 mL, Intravenous, ONCE, On Wed05/23/24 at 2130, For 1 dose $Given 05/23/2024 9:33 PM CONTACT LENS MANUFACTURER 75 mLs lactated ringers BOLUS 1,000 mL Intravenous, 1,000 mL, ONCE, On Wed05/23/24 at 2200, For 1 dose $New Bag 05/23/2024 10:05 PM CONTACT LENS MANUFACTURER 1,000 mLs Lidocaine (LIDOCARE) 4 % Patch [...] post injection. $Patch/Med Applied 05/23/2024 10:53 PM CONTACT LENS MANUFACTURER 1 patch Left Chest ondansetron (ZOFRAN) injection 8 mg 8 mg, Intravenous, ONCE PRN, nausea, vomiting, Administer over 2-5 Minutes, Starting on Wed05/23/24 at 2159, For 1 dose $Given 05/23/2024 10:07 PM CONTACT LENS MANUFACTURER 8 mg documented in this encounter Active and Recently Administered Medications Times are shown in CONTACT LENS MANUFACTURER. Scheduled Medication Order 05/21/2024 05/22/2024 05/23/2024 diphenhydrAMINE (BENADRYL) capsule 50 mg (COMPLETED) 50 mg, Oral, ONCE, On Wed05/23/24 at 2200, For 1 dose 2202 ($Given - Provi nas: Sanjay Purdy RN) HYDROmorphone (DILAUDID) injection 2 mg (COMPLETED) 2 mg, Intravenous, ONCE, On Wed05/23/24 at 2330, For 1 dose 2320 ($Given - Provi nas: Jennifer Scherer, SOFIA) iopamidol (ISOVUE-370) solution 75 mL (COMPLETED) 75 mL, Intravenous, ONCE, On Wed05/23/24 at 2130, For 1 dose 2132 ($Given - Provi nas: Selina Finn ARRT) lactated ringers BOLUS 1,000 mL (COMPLETED) Intravenous, 1,000 mL, ONCE, On Wed05/23/24 at 2200, For 1 dose 2204 ($New Bag - Pro vider: Sanjay Purdy RN)232 (Stopped - Provider: Jennifer Scherer, SOFIA) Lidocaine (LIDOCARE) 4 % Patch 1 [...] was injected for 96 hours post injection. 225 ($Patch/Med Sukhjinder lied - Provider: Sanjay Purdy RN)233 (Due: Patch/Med Removed - Provider: Orders Generic Provider - Comment: Time automatically adjusted from order being discontinued) PRN Medication Order 05/21/2024 05/22/2024 05/23/2024 HYDROmorphone (DILAUDID) injection 2 mg (COMPLETED) 2 mg, Intravenous, EVERY 1 HOUR PRN, moderate pain, Starting on Wed05/23/24 at 2115, For 2 doses 2117 ($Given - Provi nas: Sanjay Purdy RN)2220 ($Given - Provider: Sanjay Purdy RN) ondansetron (ZOFRAN) injection 8 mg (COMPLETED) 8 mg, Intravenous, ONCE PRN, nausea, vomiting, Administer over 2-5 Minutes, Starting on Wed05/23/24 at 2159, For 1 dose 2206 ($Given - Provi nas: Sanjay Purdy RN) documented in this encounter Care Teams Tank Washer Relationship Specialty Start Date End Date No Ref-Primary, Physician PCP - General 03/15/24 06/17/24 Mor Ramsey Medical Student 04/03/24 Case Samuel MD [address] [place] [address], [address] [place] [address] Assigned Pediatric Specialist Provider 05/18/24 documented as of this encounter
--- OUTSIDE RECORDS SUMMARY | 2024-06-30 22:31 | XMS_ITS | Encounter Summary ---
Author Organization [facility] Address [facility] [place] [address] Care Team Providers Care Rfid Systems Engineer Name Role Phone No Ref-Primary, Physician Primary Care Provider Mor Ramsey Unavailable Unavailable Case Samuel MD Unavailable Juhi Benson RN Unavailable Unavailable Reason for Referral * Mental Health Outpatient (Urgent: 3-5 Days) - Pending Review Specialty Diagnoses / Procedures Referred By Contac t Referred To Contact Behavioral Health Diagnoses Severe episode of recurrent major depressive disorder, without psychotic features (H) Case Samuel MD [address] [place] [address] Phone: tel: fax: Referral ID Status Reason Start Date Expiration Date V isits Requested Visits Authorized [id number] Pending Review 05/29/2024 05/29/2025 1 1 Question Answer Services: Assess/Evaluate for appropriate service (non-medication assessment) My Clinical Question Is: History of chronic pain with depression as major component combined with sickle cell disease and difficulty adjusting to [place]. Requesting evaluation for mental health diagnosis and management. Patient Scheduling Instructions: [facility] will call you to coordinate your care as prescribed by your provider. If you don't hear from a business center representative within 2 business days, please call [...] plan with any benefit or coverage questions. [facility] will call you to coordinate your care as prescribed by your provider. If you don't hear from a business center representative within 2 business days, please call . RVISOR RUBBER COVERING Reason for Visit * Reason Comments Port Draw Labs drawn via port by RN in lab, vitals taken. Oncology Clinic Visit RTN Sickle cell Encounter Details Date Type Department Care Team (Late st Contact Info) Description 05/29/2024 11:30 AM SUPERVISOR RUBBER COVERING Oncology Visit [facility] [address] [place] [address] Case Samuel MD [address] [place] [address] [address], [address] [place], [place] [id number] Severe episode of recurrent major depressive disorder, [...] on file Legal Sex Female 8:25 AM SUPERVISOR RUBBER COVERING Gender Identity Not on file Sexual Orientation Not on file documented as of this encounter Last Filed Vital Signs Vital Sign Reading Time Taken Comments Blood Pressure 98/67 05/29/2024 11:09 AM SUPERVISOR RUBBER COVERING Pulse 106 05/29/2024 11:09 AM SUPERVISOR RUBBER COVERING Temperature 37.1 C (98.7 F) 05/29/2024 11:09 AM SUPERVISOR RUBBER COVERING Respiratory Rate 18 05/29/2024 11:09 AM SUPERVISOR RUBBER COVERING Oxygen Saturation 96% 05/29/2024 11:09 AM SUPERVISOR RUBBER COVERING Inhaled Oxygen Concentration - - Weight 54.6 kg (120 lb 6.4 oz) 05/29/2024 11:09 AM SUPERVISOR RUBBER COVERING Height - - Body Mass Index 22.75 05/29/2024 12:01 AM SUPERVISOR RUBBER COVERING documented in this encounter Progress Notes * Case Sameul MD - 05/29/2024 11:30 AM CST Classical [...] it has been hard to transition to [place], especially in winter with a toddler. She [...] She said that she was born in [place] but moved throughout her childhood because her dad was in the . She is the youngest of 9 children she said, though she is the only one with sickle cell disease. Among other places, she was living in [place] for a time and then moved to [place]. It was there that shemet her boyfriend. She ultimately moved back to [place] and he came with her. It was there that they had a daughter Chanda, now 2 years old. That was a difficult for her, and she feelslike she never wants to be again. She was living in [place], [place] and receiving care at [facility], though she did not get the sense that horticulture teacher there was super comfortable with sickle cell [...] about 3 weeks ago. She moved to [place] about 2 months ago. Her boyfriend is [...] worked up for symptomatic gallstones back in [place], but there were some delays in getting [...] them both so she can be a [id number] mom. Sickle Cell Disease Comprehensive Checklist Stroke/silent [...] titrate as needed and notify the primary horticulture teacher via [employer] message if changes to the plan below are needed. Also please note that there is a mental health component to her pain, particularly in terms of adjustment to [place] which is likely to make her pain worse.. 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 She is 1 of 9 [...] Social Connections: Socially Integrated (03/28/2024) [facility] Social Connections Do you often feel lonely [...] Rate 86 BPM Atrial Rate 86 BPM SD Interval 154 ms QRS Duration 78 ms QT 370 ms QTc 442 ms P Henderson 18 degrees R AXIS 55 degrees T Henderson 25 degrees Interpretation ECG Sinus rhythm Nonspecific T wave abnormality Abnormal ECG When compared with ECG of 14-May-2024 22:12, Nonspecific T wave abnormality now evident in Inferior leads Confirmed by SEE ED PROVIDER NOTE FOR, ECG INTERPRETATION (4000), editor house organ Neeraj Allison ([id number]) on 05/20/2024 7:48:17 AM Basic metabolic panel [...] Absolute NRBCs 0.2 10e3/uL Extra Green Top ([place] Heparin) Tube Collection Time: 05/20/24 9:09 AM Result Value Ref Range Hold Specimen [facility] Basic metabolic panel Collection Time: [...] Rate 103 BPM Atrial Rate 103 BPM SD Interval 124 ms QRS Duration 80 ms QT 316 ms QTc 413 ms P Henderson 82 degrees R AXIS 90 degrees T Henderson 70 degrees Interpretation ECG Sinus tachycardia Rightward axis Borderline ECG When compared with ECG of 20-May-2024 07:36, Nonspecific T wave abnormality no longer evident in Anterior leads Confirmed by SEE ED PROVIDER NOTE FOR, ECG INTERPRETATION (4000), editor house organ Leticia Warner ([id number]) on 05/22/2024 4:13:58 PM Basic metabolic panel [...] None Seen Elliptocytes Slight (A) None Seen [employer] Bodies Present (A) None Seen Polychromasia Slight (A) None Seen RBC Fragments Slight (A) None Seen Sickle Cells Moderate (A) None Seen Target Cells Slight (A) None Seen ECG 12-LEAD WITH MUSE (LHE) Collection Time: 05/23/24 6:54 PM Result Value Ref Range Systolic Blood Pressure mmHg Diastolic Blood Pressure mmHg Ventricular Rate 77 BPM Atrial Rate 77 BPM SD Interval 160 ms QRS Duration 82 ms QT 362 ms QTc 409 ms P Henderson 61 degrees R AXIS 92 degrees T Henderson 49 degrees Interpretation ECG Sinus rhythm Rightward axis Borderline ECG When compared with ECG of 22-May-2024 15:14, Nonspecific T wave abnormality no longer evident in Inferior leads Confirmed by SEE ED PROVIDER NOTE FOR, ECG INTERPRETATION (4000), editor house organ SELMA GARRISON ([id number]) on 05/23/2024 7:30:33 PM CBC (+ platelets, [...] Rate 91 BPM Atrial Rate 91 BPM SD Interval 142 ms QRS Duration 80 ms QT 352 ms QTc 432 ms P Henderson 39 degrees R AXIS 62 degrees T Henderson 23 degrees Interpretation ECG Sinus rhythm Nonspecific T wave abnormality Abnormal ECG When compared with ECG of 23-May-2024 18:54, Nonspecific T wave abnormality now evident in Inferior leads Nonspecific T wave abnormality now evident in Anterior leads Confirmed by SEE ED PROVIDER NOTE FOR, ECG INTERPRETATION (4000), editor house organ BEN PRAKASH ([id number]) on 05/27/2024 12:22:37 PM Comprehensive metabolic panel [...] female who recently started receiving care at [facility] for sickle cell disease, HbSS (Apr 2024). She has several comorbidities related to sickle cell disease, including Chronic pain, AVN of the left hip, history of pulmonary embolism, history of transfusions with iron overload, history of stroke(details unclear), right eye retinopathy, acute on chronic anemia, gallstones, and a history of acute chest syndrome. She has been a regular visitor to the [facility] emergency department as well, and I [...] just the SCD. Her adjustment to the [facility] has been challenging, particularly at this time of year and being at home with their daughter Today, we focused on the mental health, including both psychological and psychiatric care. In my discussions with the emergency department colleagues at [facility], I stressed that a sustainable improvement [...] think outside the box. - Mental health wound care rn referral placed HbSS Disease with several complications [...] around the hip and femur strong. -Orthopedic wound care rn referral placed. Will defer to them for [...] per the note Case Samuel MD Classical Atmospheric Technician Division of Hematology, Oncology, and Transplantation [facility] The longitudinal plan of care for the diagnosis(es)/condition(s) as documented were addressed during this visit. Due to the added complexity in care, I will continue to support Gianna in the subsequent management and with ongoing continuity of care. [employer]ISOR RUBBER COVERING documented in this encounter Nursing Notes * [...] checked into next appt. Jenifer Sheffield RN RVISOR RUBBER COVERING * Laura Rg - 05/29/2024 11:30 AM [...] not needed today. Pharmacy name entered into Dr. Jerry's Smooth Move: [facility] [address] [place], [place] - [id number] [facility] - [place], [place] - [address] [facility] Frailty Screening: Is the patient here for a new oncology consult visit in cancer care? 2. No Clinical concerns:Provider came in during rooming. Laura Rg RVIS[employer] RUBBER COVERING documented in this encounter Plan of Treatment Upcoming Encounters Date Type Department Care Team (Late st Contact Info) Description 07/10/2024 11:30 AM CDT Oncology Visit [facility] [address] [place] [address] Case Samuel MD [address], [address] [place] [address] Scheduled Referrals Name Type Priority Associated Diagnoses Orde r Schedule Adult Mental Health Gear Lapping Machine Operator Referral Referral Urgent: 3-5 Days Severe episode of recurrent major depressive disorder, without psychotic features (H) Expected: 05/29/2024 (Approximate), Expires: 05/29/2025 documented as of this encounter Goals Goal Patient Goal Type Associated Problems Recent Progress Patient-Stated? Author Pain Management General On track( 025 12:40 PM SUPERVISOR RUBBER COVERING) Yes Juhi Benson, SOFIA Note: Goal Statement: [...] AND PLATELET MORPHOLOGY Routine 05/29/2024 11:23 AM SUPERVISOR RUBBER COVERING CBC WITH PLATELETS AND DIFFERENTIAL Routine 05/29/2024 11:23 AM SUPERVISOR RUBBER COVERING TYPE AND SCREEN, ADULT Add-On 11:23 AM SUPERVISOR RUBBER COVERING History of transfusion BILL ONLY- CAPILLARY ELECTROPHORESIS Routine 05/29/2024 11:23 AM SUPERVISOR RUBBER COVERING BILL ONLY- SICKLE SOLUBILITY BILL Routine 05/29/2024 11:23 AM SUPERVISOR RUBBER COVERING ROUTINE UA WITH MICROSCOPIC REFLEX TO CULTURE Routine 05/29/2024 11:23 AM SUPERVISOR RUBBER COVERING CBC WITH PLATELETS & DIFFERENTIAL Routine 05/29/2024 11:23 AM SUPERVISOR RUBBER COVERING GENOTYPE RED BLOOD CELL Routine 05/29/19 11:23 AM SUPERVISOR RUBBER COVERING History of transfusion RETICULOCYTE COUNT Routine 05/29/2024 11 :23 AM SUPERVISOR RUBBER COVERING HEMOGLOBIN EVAL REFLEX TO ELP OR RBC SOLUBILITY Routine 05/29/2024 11:23 AM SUPERVISOR RUBBER COVERING FERRITIN Routine 05/29/2024 11:23 AM SUPERVISOR RUBBER COVERING COMPREHENSIVE METABOLIC PANEL Routine 05/29/2024 11:23 AM SUPERVISOR RUBBER COVERING ABO/RH TYPE AND SCREEN Routine 11:23 AM SUPERVISOR RUBBER COVERING History of transfusion URINE CULTURE Routine 05/29/2024 11:23 AM SUPERVISOR RUBBER COVERING documented in this encounter Results * HGB Eval Reflex to ELP or RBC Solubility (05/29/2024 11:23 AM SUPERVISOR RUBBER COVERING) Alpha Globin (HBA1 and HBA2) DD Bill Billed 05/31/2024 2:46 PM SUPERVISOR RUBBER COVERING [employer] Comment: Performed By: [employer] [address] [place] [id number] Mechanic Helper: Devon Healy MD, PhD CLIA Number: [id number] Blood VENOUS LINE / Unknown IVAD (Port) / Unknown 05/29/2024 11:23 AM SUPERVISOR RUBBER COVERING 05/29/2024 11:30 AM SUPERVISOR RUBBER COVERING Result [facility] Case Samuel MD LAB CHARGE PERFORMABLES F inal Result Performing Organization Address [facility]/ZIP Co de Phone Number [employer] [address] [place] [address], [facility] [phone] * Bill Only- Sickle Solubility Bill (05/29/2024 11:23 AM SUPERVISOR RUBBER COVERING) Sickle Solubility Reflex Bill Billed 05/31/2024 2:46 PM SUPERVISOR RUBBER COVERING [facility] Comment: Performed By: [employer] [address] [facility], [facility] Mechanic Helper: Devon Healy MD, PhD CLIA Number: [id number] Blood VENOUS LINE / Unknown IVAD (Port) / Unknown 05/29/2024 11:23 AM SUPERVISOR RUBBER COVERING 05/29/2024 11:30 AM SUPERVISOR RUBBER COVERING Case Samuel MD LAB CHARGE PERFORMABLES F inal Result Performing Organization Address [facility] Co de Phone Number [employer] [address] [place] [address], [facility] [phone] * Adult Type and Screen (05/29/2024 11:23 AM SUPERVISOR RUBBER COVERING) ABO/RH(D) A POS 05/28/2024 6:00 PM SUPERVISOR RUBBER COVERING [facility] Antibody Screen Negative Negative 05/28/2024 6:00 PM SUPERVISOR RUBBER COVERING [facility] SPECIMEN EXPIRATION DATE [id number] 05/28/2024 6:00 PM SUPERVISOR RUBBER COVERING [facility] Blood VENOUS LINE / Unknown IVAD (Port) / Unknown 05/29/2024 11:23 AM SUPERVISOR RUBBER COVERING 05/29/2024 11:29 AM SUPERVISOR RUBBER COVERING Result [facility] Case Samuel MD LAB - BLOOD BANK TEST ORD ER Final Result [facility] [address] [place] [address], [facility] * Urine Culture (05/29/2024 11:23 AM SUPERVISOR RUBBER COVERING) Pathologist [facility] Culture <10,000 CFU/mL Mixture of Urogenital Vickie 05/30/2024 9:45 AM SUPERVISOR RUBBER COVERING [facility] Urine URINE SPECIMEN OBTAINED BY CLEAN CATCH PROCEDURE / Unknown Non-blood Collection / Unknown 05/29/2024 11:23 AM SUPERVISOR RUBBER COVERING 05/29/2024 11:41 AM SUPERVISOR RUBBER COVERING us Case Samuel MD LAB - MICRO GENERAL ORDER SYD Final Result [facility] Inf. Diseases Diag. Lab [address] [facility] [place] [address] * (ABNORMAL) RBC and Platelet Morphology (05/29/2024 11:23 AM SUPERVISOR RUBBER COVERING) [facility] RBC Morphology Confirmed RBC Indices 05/29/2024 12:33 PM SUPERVISOR RUBBER COVERING [facility] Platelet Assessment Automated Count Confirmed. Platelet morphology is normal. Automated Count Confirmed. Platelet morphology is normal. 05/29/2024 12:33 PM SUPERVISOR RUBBER COVERING [facility] Polychromasia Moderate(A) None Seen 05/29/2024 12:33 PM SUPERVISOR RUBBER COVERING [facility] Sickle Cells Moderate(A) None Seen 05/29/2024 12:33 PM SUPERVISOR RUBBER COVERING [facility] Target Cells Slight(A) None Seen 05/29/2024 12:33 PM SUPERVISOR RUBBER COVERING [facility] Teardrop Cells Slight(A) None Seen 05/29/2024 12:33 PM SUPERVISOR RUBBER COVERING [facility] Blood VENOUS LINE / Unknown IVAD (Port) / Unknown 05/29/2024 11:23 AM SUPERVISOR RUBBER COVERING 05/29/2024 11:29 AM SUPERVISOR RUBBER COVERING us Case Samuel MD LAB - BLOOD ORDERABLES Fi nal Result [facility] Clin[facility] [address] [facility] 1st [place] [address] * (ABNORMAL) CBC with platelets and differential (05/29/2024 11:23 AM SUPERVISOR RUBBER COVERING) [facility] WBC Count 15.8(H) 4.0 - 11.0 10e3/uL 05/29/2024 12:37 PM [facility] - [facility]ORE LAB RBC Count 2.11(L) 3.80 - 5.20 10e6/uL 05/29/2024 12:37 PM [facility] - [facility] LAB Hemoglobin 6.7(LL) 11.7 - 15.7 g/dL 05/29/2024 12:37 PM [facility] - [facility] Hematocrit 19.2(L) 35.0 - 47.0 % 05/29/2024 12:37 PM [facility] - [facility]ORE LAB MCV 91 78 - 100 fL 05/29/2024 12:37 PM [facility] - [facility] MCH 31.8 26.5 - 33.0 pg 05/29/2024 12:37 PM [facility] - [facility] LAB MCHC 34.9 31.5 - 36.5 g/dL 05/29/2024 12:37 PM [facility] - [facility] LAB RDW 23.1(H) 10.0 - 15.0 % 05/29/2024 12:37 PM [facility] - [facility] LAB Platelet Count 417 150 - 450 10e3/uL 05/29/2024 12:37 PM [facility] - [facility] % Neutrophils 56 % 05/29/2024 12:37 PM [facility] % Lymphocytes 25 % 05/29/2024 12:37 PM [facility] % Monocytes 15 % 05/29/2024 12:37 PM [facility] % Eosinophils 2 % 05/29/2024 12:37 PM [facility] % Basophils 1 % 05/29/2024 12:37 PM [facility] % Immature Granulocytes 1 % 05/29/2024 12:37 PM [facility] NRBCs per 100 WBC 2(H) <1 /100 025 12:37 PM [facility] Absolute Neutrophils 8.8(H) 1.6 - 8.3 10e3/uL 05/29/2024 12:37 PM [facility] Absolute Lymphocytes 4.0 0.8 - 5.3 10e3/uL 05/29/2024 12:37 PM [facility] Absolute Monocytes 2.4(H) 0.0 - 1.3 10e3/uL 05/29/2024 12:37 PM SUPERVISOR RUBBER COVERING [facility] Absolute Eosinophils 0.3 0.0 - 0.7 10e3/uL 05/29/2024 12:37 PM SUPERVISOR RUBBER COVERING [facility] Absolute Basophils 0.2 0.0 - 0.2 10e3/uL 05/29/2024 12:37 PM SUPERVISOR RUBBER COVERING [facility] Absolute Immature Granulocytes 0.2 <=0.4 10e3/uL 05/29/2024 12:37 PM SUPERVISOR RUBBER COVERING [facility] Absolute NRBCs 0.2 10e3/uL 05/29/2024 12:37 PM SUPERVISOR RUBBER COVERING [facility] Blood VENOUS LINE / Unknown IVAD (Port) / Unknown 05/29/2024 11:23 AM SUPERVISOR RUBBER COVERING 05/29/2024 11:29 AM SUPERVISOR RUBBER COVERING us Case Samuel MD LAB - BLOOD ORDERABLES Fi nal Result [facility] Clinics and Surgery [address] 1st [place] [address] * Genotype Red Blood Cell (05/29/2024 11:23 AM SUPERVISOR RUBBER COVERING) Pathologist [facility] See Scanned Result GENOTYPE RED BLOOD CELL-Scanned 05/31/2024 10:16 AM [facility] Blood VENOUS LINE / Unknown IVAD (Port) / Unknown 05/29/2024 11:23 AM SUPERVISOR RUBBER COVERING 05/29/2024 11:29 AM SUPERVISOR RUBBER COVERING us Case Samuel MD LAB - BLOOD ORDERABLES Fi nal Result [facility] [address] [place], [place] [address] [phone] * (ABNORMAL) HGB Eval Reflex to ELP or RBC Solubility (05/29/2024 11:23 AM SUPERVISOR RUBBER COVERING) Hemoglobin A 15.0(L) 95.0 - 97.9 % 05/31/2024 2:46 PM SUPERVISOR RUBBER COVERING [facility] Hemoglobin A2 3.0 2.0 - 3.5 % 05/31/2024 2:46 PM SUPERVISOR RUBBER COVERING [facility] Hemoglobin F 10.8(H) 0.0 - 2.1 % 05/31/2024 2:46 PM SUPERVISOR RUBBER COVERING [facility] Hemoglobin S 71.2(H) 0.0 - 0.0 % 05/31/2024 2:46 PM SUPERVISOR RUBBER COVERING [facility] Hemoglobin C 0.0 0.0 - 0.0 % 05/31/2024 2:46 PM SUPERVISOR RUBBER COVERING [facility] Hemoglobin E 0.0 0.0 - 0.0 % 05/31/2024 2:46 PM SUPERVISOR RUBBER COVERING [facility] Hemoglobin - Other 0.0 0.0 - 0.0 % 05/31/2024 2:46 PM SUPERVISOR RUBBER COVERING [facility] Hemoglobin Evaluation See Note 05/31/2024 2:46 PM SUPERVISOR RUBBER COVERING [facility] Comment: Impression: Hb S present [...] Globin (HBA1 and HBA2) Deletion/Duplication ([facility] test #3167685) should be considered. Hb S/beta-plus thalassemia is typically characterized by more Hb S than Hb A with the presence of microcytosis. If microcytosis is present and Hb S/beta-plus thalassemia is suspected, Beta Globin (HBB) Sequencing ([facility] test #6110114) is suggested. Hemoglobin analysis should be offered [...] developed and its performance characteristics determined by [employer] It has not been cleared or approved by the U.S. Food and Drug Administration. This test was performed in a CLIA-certified laboratory and is intended for clinical purposes. Sickle Cell Solubility Reflex Positive(A) 05/31/2024 2:46 PM SUPERVISOR RUBBER COVERING [facility] [employer] Comment: INTERPRETIVE INFORMATION: Sickle Cell Solubility Reflex Not Performed: Solubility testing for Hemoglobin S not indicated. 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 Additional charges apply. Conf Previous: Positive for Hemoglobin S by HPLC. Solubility testing performed previously and not repeated with this submission. Hgb Capillary Electrophoresis Reflex Performed 05/31/2024 2:46 PM SUPERVISOR RUBBER COVERING [facility] [employer] Comment: INTERPRETIVE INFORMATION: Hgb Capillary Electrophoresis Reflex Not Performed: Confirmation by Capillary Electrophoresis not indicated. Performed: Results confirmed by Capillary Electrophoresis. Additional charges apply. Conf Previous: Capillary Electrophoresis confirmation performed as part of a previous submission. Confirmation not repeated with this submission. Performed By: [employer] [address] [place] [id number] Mechanic Helper: Devon Healy MD, PhD CLIA Number: [id number] Blood VENOUS LINE / Unknown IVAD (Port) / Unknown 05/29/2024 11:23 AM SUPERVISOR RUBBER COVERING 05/29/2024 11:30 AM SUPERVISOR RUBBER COVERING us Case Samuel MD LAB - BLOOD ORDERABLES Fi nal Result [facility] [address] [place] [id number], [facility] [phone] * (ABNORMAL) Ferritin (05/29/2024 11:23 AM SUPERVISOR RUBBER COVERING) [facility] Ferritin 1,559(H) 6 - 175 ng/mL 05/29/2024 12:43 PM SUPERVISOR RUBBER COVERING [facility] Blood VENOUS LINE / Unknown IVAD (Port) / Unknown 05/29/2024 11:23 AM SUPERVISOR RUBBER COVERING 05/29/2024 11:29 AM SUPERVISOR RUBBER COVERING Case Samuel MD LAB - BLOOD ORDERABLES Fi nal Result [facility] Clinics and [facility] [address] [facility] 1st [place] [address] * (ABNORMAL) Routine UA with micro reflex to culture (05/29/2024 11:23 AM [facility]) Color Urine Yellow Colorless, Straw, Light Yellow, Yellow 05/29/2024 11:41 AM [facility] - CORE LAB Appearance Urine Slightly Cloudy(A) Clear 05/29/2024 11:41 AM [facility] - CORE LAB Glucose Urine Negative Negative mg/dL 05/29/2024 11:41 AM [facility] - CORE LAB Bilirubin Urine Negative Negative 11:41 AM [facility] - CORE LAB Ketones Urine Negative Negative mg/dL 05/29/2024 11:41 AM [facility] - CORE LAB Specific [place] Urine 1.013 1.003 - 1.035 05/29/2024 11:41 AM [facility] - CORE LAB Blood Urine Negative Negative 05/29/2024 11:41 AM [facility] - CORE LAB pH Urine 7.0 5.0 - 7.0 05/29/2024 11:41 AM [facility] - CORE LAB Protein Albumin Urine Negative Negative mg/dL 05/29/2024 11:41 AM [facility] - CORE LAB Urobilinogen Urine Normal Normal, 2.0 mg/dL 05/29/2024 11:41 AM [facility] - CORE LAB Nitrite Urine Negative Negative 05/29/2024 11:41 AM [facility] - CORE LAB Leukocyte Esterase Urine Moderate(A) Negative 05/29/2024 11:41 AM [facility] - CORE LAB Mucus Urine Present(A) None Seen /LPF 05/29/2024 11:41 AM [facility] - CORE LAB RBC Urine 6(H) <=2 /HPF 05/29/2024 11:41 AM [facility] WBC Urine 3 <=5 /HPF 05/29/2024 11:41 AM [facility] - CORE LAB Squamous Epithelials Urine 18(H) <=1 /HPF 05/29/2024 11:41 AM [facility] - CORE LAB Urine URINE SPECIMEN OBTAINED BY CLEAN CATCH PROCEDURE / Unknown Non-blood Collection / Unknown 05/29/2024 11:23 AM [employer] 05/29/2024 11:29 AM [employer] Narrative [facility] - 05/29/2024 11:41 AM [employer] Urine Culture ordered based on laboratory criteria Case Samuel MD LAB - URINE ORDERABLES Fi nal Result [facility] [address] [place] [address] 1st [place] [address] * (ABNORMAL) Comprehensive metabolic panel (05/29/2024 11:23 AM [facility]) Sodium 139 135 - 145 mmol/L 05/29/2024 11:58 AM [facility] - CORE LAB Potassium 4.2 3.4 - 5.3 mmol/L 05/29/2024 11:58 AM [facility] - CORE LAB Carbon Dioxide (CO2) 24 22 - 29 mmol/L 05/29/2024 11:58 AM [facility] - CORE LAB Anion Gap 10 7 - 15 mmol/L 05/29/2024 11:58 AM [facility] - CORE LAB Urea Nitrogen 9.2 6.0 - 20.0 mg/dL 05/29/2024 11:58 AM [facility] - CORE LAB Creatinine 0.75 0.51 - 0.95 mg/dL 05/29/2024 11:58 AM [facility] - CORE LAB GFR Estimate >90 >60 mL/min/1.7 3m2 05/29/2024 11:58 AM [facility] - CORE LAB Comment:eGFR calculated usin 2020 CKD-EPI equation. Calcium 8.9 8.8 - 10.4 mg/dL 05/29/2024 11:58 AM [facility] - CORE LAB Chloride 105 98 - 107 mmol/L 05/29/2024 11:58 AM [facility] - CORE LAB Glucose 109(H) 70 - 99 mg/dL 05/29/2024 11:58 AM [facility] - CORE LAB Alkaline Phosphatase 83 40 - 150 U/L 05/29/2024 11:58 AM [facility] - CORE LAB AST 49(H) 0 - 45 U/L 05/29/2024 11:58 AM [facility] - CORE LAB ALT 21 0 - 50 U/L 05/29/2024 11:58 AM [facility] - CORE LAB Protein Total 7.3 6.4 - 8.3 g/dL 05/29/2024 11:58 AM [facility] - CORE LAB Albumin 4.1 3.5 - 5.2 g/dL 05/29/2024 11:58 AM [facility] - CORE LAB Bilirubin Total 2.2(H) <=1.2 mg/dL 05/29/2024 11:58 AM [facility] - CORE LAB Blood VENOUS LINE / Unknown IVAD (Port) / Unknown 05/29/2024 11:23 AM [employer] 05/29/2024 11:29 AM [employer] Case Samuel MD LAB - BLOOD ORDERABLES Fi nal Result Performing Organization Address [facility] de Phone Number [facility] [address] [place] [address] * (ABNORMAL) Reticulocyte count (05/29/2024 11:23 AM [employer]) [facility] % Reticulocyte 29.8(H) 0.5 - 2.0 % 05/29/2024 12:00 PM [employer] [facility] Absolute Reticulocyte 0.631(H) 0.025 - 0.095 10e6/uL 05/29/2024 12:00 PM [employer] RU[employer]OVER[employer] [facility] Blood VENOUS LINE / Unknown IVAD (Port) / Unknown 05/29/2024 11:23 AM [employer] 05/29/2024 11:29 AM [employer] us Case Samuel MD LAB - BLOOD ORDERABLES Fi nal Result Performing Organization Address [facility] Co de Phone Number [facility] [address] [place] [address] documented in this encounter Visit Diagnoses Diagnosis [...] Wed05/29/24 at 1130 $Given 05/29/2024 11:29 AM [employer] 5 mLs sodium chloride (PF) 0.9% PF flush 20 mL 20 mL, Intravenous, ONCE, On Wed05/29/24 at 1130, For 1 dose $Given 05/29/2024 11:30 AM [employer] 20 mLs documented in this encounter Care Teams Rfid Systems Engineer Relationship Specialty Start Date End Date No Ref-Primary, Physician PCP - General 03/15/24 06/17/24 Mor Ramsey Medical Student 04/03/24 Case Samuel MD [address] [place] [address] [address], [address] [place] [address] Assigned Pediatric Specialist Provider 05/18/24 Juhi Benson, RN Specialty Survey Director Hematology & Oncology 05/29/24 documented as of this encounter
--- OUTSIDE RECORDS SUMMARY | 2024-06-30 22:31 | XMS_ITS | Encounter Summary ---
Author Organization [facility] Address [address] [place] [address] Care Team Providers Care Boiler Setter Name Role Phone No Ref-Primary, Physician Primary Care Provider Mor Ramsey Unavailable Unavailable Case Samuel MD Unavailable [phone] Reason for Visit * Reason Onset Date Comments Refill Request 05/22/2024 Encounter Details Date Type Department Care Team ([facility] st Contact Info) Description 05/22/2024 MyC Refill [facility] [address] [place] [address] Case Samuel MD [address] [place] [address] [address], [address] [place] [address] Refill Request Social History Tobacco [...] on file Legal Sex Female 8:25 AM BACK ORDER CLERK Gender Identity Not on file Sexual [...] and by whom: Dr. Samuel on 05/01/2024 ADMINISTRATIVE ASSOCIATE Reviewed: Yes Send to provider: Dr. Samuel and ESTEVAN Reynaga . ORDER CLERK documented in this encounter Plan of Treatment Upcoming Encounters Date Type Department Care Team (Late st Contact Info) Description 07/10/2024 11:30 AM CDT Oncology [facility] [address] [place] [phone] Case Samuel MD [address] [place] [address], [address] [place] [address] documented as of this encounter Goals Goal Patient Goal Type Associated Problems Recent Progress Patient-Stated? Author Pain Management General On track( 025 12:40 PM BACK ORDER CLERK) Yes Juhi Benson, SOFIA Note: Goal [...] crisis documented in this encounter Care Teams Boiler Setter Relationship Specialty Start Date End Date No Ref-Primary, Physician PCP - General 03/15/24 06/17/24 Mor Ramsey Medical Student 04/03/24 Case Samuel MD [address] [place] [address] [address], [address] [place] [address] Assigned Pediatric Specialist Provider 05/18/24 documented as of this encounter
--- OUTSIDE RECORDS SUMMARY | 2024-06-30 22:31 | XMS_ITS | Encounter Summary ---
Author Organization [facility] Address [address] [place] [address]. [place] [address] Care Team Providers Care Product Development Coordinator Name Role Phone No Ref-Primary, Physician Primary Care Provider Mor Ramsey Unavailable Unavailable Case Samuel MD Unavailable [phone] Encounter Details Date Type Department Care Team [...] on file Legal Sex Female 8:25 AM PLAYER MANAGER Gender Identity Not on file Sexual Orientation Not on file documented as of this encounter Plan of Treatment Upcoming Encounters Date Type Department Care Team (Late st Contact Info) Description 07/10/2024 11:30 AM CDT Oncology Visit [facility] [address] [place] [phone] Case Samuel MD [address] [place] [address], [address] [place] [address] documented as of this encounter Goals Goal Patient Goal Type Associated Problems Recent Progress Patient-Stated? Author Pain Management General On track( 025 12:40 PM PLAYER MANAGER) Yes Juhi Benson, RN Note: Goal [...] on filedocumented in this encounter Care Teams Product Development Coordinator Relationship Specialty Start Date End Date No Ref-Primary, Physician PCP - General 03/15/24 06/17/24 Roxy [facility] Medical Student 04/03/24 Case Samuel MD [address] [place] [address] [address], [address] [place] [address] Assigned Pediatric Specialist Provider 05/18/24 documented as of this encounter
--- OUTSIDE RECORDS SUMMARY | 2024-06-30 22:31 | XMS_ITS | Encounter Summary ---
Author Organization [facility] Address [address] [place] [address]. [place] [address] Care Team Providers Care Plastic Joint Maker Name Role Phone No Ref-Primary, Physician Primary Care Provider Mor Ramsey Unavailable Unavailable Case Samuel MD Unavailable [phone] Reason for Visit * Reason Comments Chest Pain Sickle Cell Pain Crisis Encounter Details Date Type Department Care Team (Late st Contact Info) Description 05/22/2024 3:27 PM WHEEL ALIGNMENT TECHNICIAN - 05/22/2024 6:55 PM WHEEL ALIGNMENT TECHNICIAN Emergency [facility] Emergency Room [facility] [place] [address] Bernabe Farley MD [facility] [address] [place] [id number] Sickle cell pain crisis (H) Discharge Disposition: [...] on file Legal Sex Female 8:25 AM WHEEL ALIGNMENT TECHNICIAN Gender Identity Not on file Sexual Orientation Not on file documented as of this encounter Last Filed Vital Signs Vital Sign Reading Time Taken Comments Blood Pressure 111/59 05/22/2024 6:53 PM WHEEL ALIGNMENT TECHNICIAN Pulse 106 05/22/2024 6:52 PM WHEEL ALIGNMENT TECHNICIAN Temperature 36.7 C (98.1 F) 05/22/2024 3:11 PM WHEEL ALIGNMENT TECHNICIAN Respiratory Rate 20 05/22/2024 3:11 PM WHEEL ALIGNMENT TECHNICIAN Oxygen Saturation 95% 05/22/2024 6:52 PM WHEEL ALIGNMENT TECHNICIAN Inhaled Oxygen Concentration - - Weight 51.7 kg (114 lb) 05/22/2024 3:11 PM WHEEL ALIGNMENT TECHNICIAN Height 154.9 cm (5' 1) 05/22/2024 3:11 PM WHEEL ALIGNMENT TECHNICIAN Body Mass Index 21.54 05/22/2024 3:11 PM WHEEL ALIGNMENT TECHNICIAN documented in this encounter Discharge Instructions [...] RN - 05/22/2024 6:29 PM CST Bed: [facility] Expected date: Expected time: Means of arrival: Comments: Crash L ALIGNMENT TECHNICIAN * Bernabe Farley MD - 05/22/2024 3:27 [...] April. Today will be the 16th visit. 1750 Patient is a 29-year-old woman with history [...] and Inpatient Record: Patient was seen at [facility] ED on 05/20/23 Care impacted by [...] Per chart review, patient was seen at [facility] ED on 05/20/24 for sickle cell [...] She has seen the oncologist at the [facility] and has future follow-up appointments for her [...] my direction. Bernabe Farley M.D. Emergency [facility] EMERGENCY ROOM [address] [facility] [phone] Dept: [phone] Bernabe Farley MD 05/22/244 L ALIGNMENT TECHNICIAN * Sanjay Purdy RN - 05/22/2024 3:10 [...] WDL Cognitive/Neuro/Behavioral WDL Cognitive/Neuro/Behavioral WDL WDL L ALIGNMENT TECHNICIAN documented in this encounter Plan of Treatment Upcoming Encounters Date Type Department Care Team (Late st Contact Info) Description 07/10/2024 11:30 AM CDT Oncology Visit [facility] [address] [place] [address] Case Samuel MD [address] [place] [address] 484, [address] [place], [place] [id number] documented as of this encounter Goals Goal Patient Goal Type Associated Problems Recent Progress Patient-Stated? Author Pain Management General On track( 025 12:40 PM WHEEL ALIGNMENT TECHNICIAN) Yes Juhi Benson, RN Note: Goal [...] CHEST 2 VIEWS STAT 05/22/2024 5:19 PM WHEEL ALIGNMENT TECHNICIAN RBC AND PLATELET MORPHOLOGY STAT 05/22/2024 3:51 PM WHEEL ALIGNMENT TECHNICIAN CBC WITH PLATELETS AND DIFFERENTIAL STAT 05/22/2024 3:51 PM WHEEL ALIGNMENT TECHNICIAN CBC WITH PLATELETS & DIFFERENTIAL STAT 05/22/2024 3:51 PM WHEEL ALIGNMENT TECHNICIAN BASIC METABOLIC PANEL STAT 05/22/2024 3:51 PM WHEEL ALIGNMENT TECHNICIAN ECG 12-LEAD WITH MUSE SJN,SJO,WWH STAT 05/22/2024 3:14 PM WHEEL ALIGNMENT TECHNICIAN documented in this encounter Results * Chest XR, PA & LAT (05/22/2024 5:19 PM WHEEL ALIGNMENT TECHNICIAN) Anatomical Region Laterality Modality Chest Digital Radiogra phy 05/22/2024 5:19 PM WHEEL ALIGNMENT TECHNICIAN Impressions 05/22/2024 5:42 PM WHEEL ALIGNMENT TECHNICIAN IMPRESSION: Unchanged ill-defined hazy opacities in the peripheral right lung, which may correspond with nodular opacities seen on CT chest dated 05/04/2024. No new focal airspace disease. No pleural effusion or pneumothorax. The cardiomediastinal silhouette is unremarkable. Narrative 05/22/2024 5:42 PM WHEEL ALIGNMENT TECHNICIAN EXAM: XR CHEST 2 VIEWS LOCATION: [facility] DATE: 05/22/2024 INDICATION: L chest pain, concern for acute chest syndome COMPARISON: 05/20/2024, CT chest 05/04/2024 Procedure Note Robert Marks MD - 05/22/2024 EXAM: XR CHEST 2 VIEWS LOCATION: [facility] DATE: 05/22/2024 INDICATION: L chest pain, concern for acute chest syndome COMPARISON: 05/20/2024, CT chest 05/04/2024 IMPRESSION: Unchanged ill-defined hazy opacities in the peripheral right lung, whichmay correspond with nodular opacities seen on CT chest dated 05/04/2024. No new focal airspace disease. No pleural effusion or pneumothorax. The cardiomediastinal silhouette is unremarkable. Bernabe Farley MD IMG DIAGNOSTIC IMAGING ORDERA BLES Final Result * (ABNORMAL) RBC and Platelet Morphology (05/22/2024 3:51 PM WHEEL ALIGNMENT TECHNICIAN) RBC Morphology Confirmed RBC Indices 05/22/2024 4:30 PM WHEEL ALIGNMENT TECHNICIAN [facility] Platelet Assessment Automated Count Confirmed. Giant platelets are present.(A) Automated Count Confirmed. Platelet morphology is normal. JARET 05/22/2024 4:30 PM WHEEL ALIGNMENT TECHNICIAN [facility] Giant Platelets Slight(A) None Seen JARET 05/22/2024 4:30 PM [facility] Elliptocytes Slight(A) None Seen JARET 05/22/2024 4:30 PM WHEEL ALIGNMENT TECHNICIAN [facility] [place] Bodies Present(A) None Seen JARET 05/22/2024 4:30 PM [facility] Polychromasia Slight(A) None Seen JARET 05/22/2024 4:30 PM WHEEL ALIGNMENT TECHNICIAN [facility] RBC Fragments Slight(A) None Seen JARET 05/22/2024 4:30 PM [facility] Sickle Cells Moderate(A) None Seen JARET 05/22/2024 4:30 PM WHEEL ALIGNMENT TECHNICIAN [facility] Target Cells Slight(A) None Seen JARET 05/22/2024 4:30 PM [facility] Blood VENOUS LINE / Unknown Venipuncture / Unknown 05/22/2024 3:51 PM WHEEL ALIGNMENT TECHNICIAN 05/22/2024 3:54 PM WHEEL ALIGNMENT TECHNICIAN us Bernabe Farley MD LAB - BLOOD ORDERABLES Final Result [facility] [address] [place] [address], [facility] * (ABNORMAL) CBC with platelets and differential (05/22/2024 3:51 PM WHEEL ALIGNMENT TECHNICIAN) Pathologist [facility] WBC Count 14.5(H) 4.0 - 11.0 10e3/uL 05/22/2024 4:30 PM [facility] RBC Count 2.59(L) 3.80 - 5.20 10e6/uL 05/22/2024 4:30 PM [facility] Hemoglobin 8.2(L) 11.7 - 15.7 g/dL 05/22/2024 4:30 PM [facility] Hematocrit 23.4(L) 35.0 - 47.0 % 05/22/2024 4:30 PM [facility] MCV 90 78 - 100 fL 05/22/2024 4:30 PM [facility] MCH 31.7 26.5 - 33.0 pg 05/22/2024 4:30 PM [facility] MCHC 35.0 31.5 - 36.5 g/dL 05/22/2024 4:30 PM [facility] RDW 22.9(H) 10.0 - 15.0 % 05/22/2024 4:30 PM [facility] Platelet Count 552(H) 150 - 450 10e3/uL 05/22/2024 4:30 PM [facility] % Neutrophils 53 % 05/22/2024 4:30 PM [facility] % Lymphocytes 30 % 05/22/2024 4:30 PM [facility] % Monocytes 14 % 05/22/2024 4:30 PM [facility] % Eosinophils 1 % 05/22/2024 4:30 PM [facility] % Basophils 1 % 05/22/2024 4:30 PM [facility] % Immature Granulocytes 1 % 05/22/2024 4:30 PM [facility] NRBCs per 100 WBC 2(H) <1 /100 025 4:30 PM [facility] Absolute Neutrophils 7.7 1.6 - 8.3 10e3/uL 05/22/2024 4:30 PM [facility] Absolute Lymphocytes 4.3 0.8 - 5.3 10e3/uL 05/22/2024 4:30 PM [facility] Absolute Monocytes 2.0(H) 0.0 - 1.3 10e3/uL 05/22/2024 4:30 PM [facility] Absolute Eosinophils 0.1 0.0 - 0.7 10e3/uL 05/22/2024 4:30 PM [facility] Absolute Basophils 0.2 0.0 - 0.2 10e3/uL 05/22/2024 4:30 PM [facility] Absolute Immature Granulocytes 0.2 <=0.4 10e3/uL 05/22/2024 4:30 PM [facility] Absolute NRBCs 0.3 10e3/uL 05/22/2024 4:30 PM [facility] Blood VENOUS LINE / Unknown Venipuncture / Unknown 05/22/2024 3:51 PM WHEEL ALIGNMENT TECHNICIAN 05/22/2024 3:54 PM [facility] us Bernabe Farley MD LAB - BLOOD ORDERABLES Final Result Performing Organization Address [facility]/State/ZIP Co de Phone Number [facility] [address] [place] [address], [facility] * (ABNORMAL) Basic metabolic panel (05/22/2024 3:51 PM WHEEL ALIGNMENT TECHNICIAN) Sodium 138 135 - 145 mmol/L 05/22/2024 4:12 PM [facility] Potassium 4.8 3.4 - 5.3 mmol/L 05/22/2024 4:12 PM [facility] Chloride 107 98 - 107 mmol/L 05/22/2024 4:12 PM [facility] Carbon Dioxide (CO2) 20(L) 22 - 29 mmol/L 05/22/2024 4:12 PM [facility] Anion Gap 11 7 - 15 mmol/L 05/22/2024 4:12 PM WHEEL ALIGNMENT TECHNICIAN [facility] Urea Nitrogen 9.9 6.0 - 20.0 mg/dL 05/22/2024 4:12 PM [facility] Creatinine 0.91 0.51 - 0.95 mg/dL 05/22/2024 4:12 PM [facility] GFR Estimate 87 >60 mL/min/1.7 3m2 05/22/2024 4:12 PM [facility] Comment:eGFR calculated usin g 2020 CKD-EPI equation. Calcium 9.6 8.8 - 10.4 mg/dL 05/22/2024 4:12 PM [facility] Comment:Reference intervals for this test were updated on 11/09/2023 to reflect our healthy population more accurately. There may be differences in the flagging of prior results with similar values performed with this method. Those prior results can be interpreted in the context of the updated reference intervals. Glucose 100(H) 70 - 99 mg/dL 05/22/2024 4:12 PM WHEEL ALIGNMENT TECHNICIAN [facility] Blood VENOUS LINE / Unknown Venipuncture / Unknown 05/22/2024 3:51 PM WHEEL ALIGNMENT TECHNICIAN 05/22/2024 3:54 PM WHEEL ALIGNMENT TECHNICIAN us Bernabe Farley MD LAB - BLOOD ORDERABLES Final Result [facility] [address] [place] [address], [facility] * ECG 12-LEAD WITH MUSE (LHE) (05/22/2024 3:14 PM WHEEL ALIGNMENT TECHNICIAN) Systolic Blood Pressure mmHg RADIOLOGY RESULTS Diastolic Blood Pressure mmHg RADIOLOGY RESULTS Ventricular Rate 103 BPM RAD IOLOGY RESULTS Atrial Rate 103 BPM RADIOLOG Y RESULTS AR Interval 124 ms RADIOLOG Y RESULTS QRS Duration 80 ms RADIOLO GY RESULTS QT 316 ms RADIOLOGY RESULTS QTc 413 ms RADIOLOGY RESULTS P [place] 82 degrees RADIOLOGY RESULTS R AXIS 90 degrees RADIOLOGY RESULTS T [place] 70 degrees RADIOLOGY RESULTS Interpretation ECG Sinus tachycardia Rightward axis Borderline ECG When compared with ECG of 20-May-2024 07:36, Nonspecific T wave abnormality no longer evident in Anterior leads Confirmed by SEE ED PROVIDER NOTE FOR, ECG INTERPRETATION ([id number]), assistant production editor Leticia Warner ([id number]) on 05/22/2024 4:13:58 PM RADIOLOGY RESULTS 05/22/2024 3:14 PM WHEEL ALIGNMENT TECHNICIAN 05/22/2024 4:13 PM WHEEL ALIGNMENT TECHNICIAN Bernabe Farley MD ECG ORDERABLES Edited Result [...] For 1 dose $Given 05/22/2024 4:00 PM WHEEL ALIGNMENT TECHNICIAN 25 mg HYDROmorphone (DILAUDID) injection 2 mg 2 mg, Intravenous, EVERY 1 HOUR PRN, severe pain, Starting on Wed05/22/24 at 1537, For 3 doses $Given 05/22/2024 6:39 PM WHEEL ALIGNMENT TECHNICIAN 2 mg $Given 05/22/2024 5:33 PM WHEEL ALIGNMENT TECHNICIAN 2 mg $Given 05/22/2024 4:00 PM WHEEL ALIGNMENT TECHNICIAN 2 mg lactated ringers BOLUS 500 mL Intravenous, 500 mL, ONCE, On Wed05/22/24 at 1600, For 1 dose $New Bag 05/22/2024 4:13 PM WHEEL ALIGNMENT TECHNICIAN 500 mLs ondansetron (ZOFRAN) injection 4 mg 4 mg, Intravenous, ONCE, Administer over 2-5 Minutes, On Wed05/22/24 at 1600, For 1 dose $Given 05/22/2024 4:00 PM WHEEL ALIGNMENT TECHNICIAN 4 mg documented in this encounter Active and Recently Administered Medications Times are shown in WHEEL ALIGNMENT TECHNICIAN. Scheduled Medication Order 05/20/2024 05/21/2024 05/22/2024 diphenhydrAMINE (BENADRYL) capsule 25 mg (COMPLETED) 25 mg, Oral, ONCE, On Wed05/22/24 at 1600, For 1 dose 1600 ($Given - Provi nas: Hattie Lee RN) lactated ringers BOLUS 500 mL (COMPLETED) Intravenous, 500 mL, ONCE, On Wed05/22/24 at 1600, For 1 dose 1613 ($New Bag - Pro vider: Hattie Lee RN)1734 (Stopped - Provider: Carmen Elkins, SOFIA) ondansetron (ZOFRAN) injection 4 mg (COMPLETED) 4 [...] Hattie Lee RN)1733 ($Given - Provider: Carmen Elkins RN)1839 ($Given - Provider: Carmen Elkins, SOFIA) documented in this encounter Care Teams Plastic Joint Maker Relationship Specialty Start Date End Date No Ref-Primary, Physician PCP - General 03/15/24 06/17/24 Mor Ramsey Medical Student 04/03/24 Case Samuel MD [address] [place] [address] 484, [address] [place] [address] Assigned Pediatric Specialist Provider 05/18/24 documented as of this encounter
--- OUTSIDE RECORDS SUMMARY | 2024-06-30 22:31 | XMS_ITS | Encounter Summary ---
Author Organization [place] Address [facility] [place] [address] Care Team Providers Care Machine Ii Trimmer Name Role Phone No Ref-Primary, Physician Primary [...] on file Legal Sex Female 8:25 AM ENGRAVER PANTOGRAPH Gender Identity Not on file Sexual Orientation Not on file documented as of this encounter Plan of Treatment Upcoming Encounters Date Type Department Care Team (Late st Contact Info) Description 07/10/2024 11:30 AM CDT Oncology Visit [facility] [address] [place] [address] Case Samuel MD [address] [place] [address] 484, [address] [place], [place] [address] documented as of this encounter Goals Goal Patient Goal Type Associated Problems Recent Progress Patient-Stated? Author Pain Management General On track( 025 12:40 PM ENGRAVER PANTOGRAPH) Yes Juhi Benson RN Note: Goal Statement: [...] Out COVID-19 05/16/2024 05/16/2024 05/16/2024 10:46 PM ENGRAVER PANTOGRAPH documented as of this encounter Care Teams Machine Ii Trimmer Relationship Specialty Start Date End Date No Ref-Primary, Physician PCP - General 03/15/24 06/17/24 Mor Ramsey Medical Student 04/03/24 documented as of this encounter
--- OUTSIDE RECORDS SUMMARY | 2024-06-30 22:31 | XMS_ITS | Encounter Summary ---
Author Organization [facility] Address [address] [place] [address]. [place] [address] Care Team Providers Care Anesthesia Resident Name Role Phone No Ref-Primary, Physician Primary Care Provider Mor Ramsey Unavailable Unavailable Case Samuel MD Unavailable [phone] Juhi Benson RN Unavailable Unavailable Encounter Details [...] on file Legal Sex Female 8:25 AM PRENATAL TEACHER Gender Identity Not on file Sexual Orientation Not on file documented as of this encounter Plan of Treatment Upcoming Encounters Date Type Department Care Team (Late st Contact Info) Description 07/10/2024 11:30 AM CDT Oncology Visit [facility] [address] [place] [address] Case Samuel MD [address] [place] [address] 484, [address] [place] [address] documented as of this encounter Goals Goal Patient Goal Type Associated Problems Recent Progress Patient-Stated? Author Pain Management General On track( 025 12:40 PM PRENATAL TEACHER) Yes Juhi Benson, RN Note: Goal Statement: [...] on filedocumented in this encounter Care Teams Anesthesia Resident Relationship Specialty Start Date End Date No Ref-Primary, Physician PCP - General 03/15/24 06/17/24 Mor Ramsey Medical Student 04/03/24 Case Samuel MD [address] [place] [address] 484, [address] [place] [address] Assigned Pediatric Specialist Provider 05/18/24 Juhi Benson, RN Specialty Supervisor Warping Department Hematology & Oncology 05/29/24 documented as of this encounter
--- OUTSIDE RECORDS SUMMARY | 2024-06-30 22:31 | XMS_ITS | Encounter Summary ---
Author Organization [place] Address [address] [place] [address]. [place] [address] Care Team Providers Care Central Service Technician Name Role Phone No Ref-Primary, Physician Primary Care Provider Mor Ramsey Unavailable Unavailable Case Samuel MD Unavailable [phone] Juhi Benson RN Unavailable Unavailable Encounter Details Date Type Department Care Team (Late st Contact Info) Description 05/29/2024 Orders Only [facility] [address] [place] [address] Juhi Benson, SOFIA Sickle cell [...] on file Legal Sex Female 8:25 AM PIZZA CHEF Gender Identity Not on file Sexual Orientation Not on file documented as of this encounter Plan of Treatment Upcoming Encounters Date Type Department Care Team (Late st Contact Info) Description 07/10/2024 11:30 AM CDT Oncology Visit [facility] [address] [place] [address] Case Samuel MD [address] [place] [address] 484, [address] [place], [place] [address] documented as of this encounter Goals Goal Patient Goal Type Associated Problems Recent Progress Patient-Stated? Author Pain Management General On track( 025 12:40 PM PIZZA CHEF) Yes Juhi Benson, SOFIA Note: Goal Statement: [...] crisis documented in this encounter Care Teams Central Service Technician Relationship Specialty Start Date End Date No Ref-Primary, Physician PCP - General 03/15/24 06/17/24 Mor Ramsey Medical Student 04/03/24 Case Samuel MD [address] [place] [address] 484, [address] [place] [address] Assigned Pediatric Specialist Provider 05/18/24 Juhi Benson, RN Specialty Log Chipper Operator Hematology & Oncology 05/29/24 documented as of this encounter
--- OUTSIDE RECORDS SUMMARY | 2024-06-30 22:31 | XMS_ITS | Encounter Summary ---
Author Organization [place] Address [address] [place] [address]. [place] [address] Care Team Providers Care Project/Production Manager Imaging Name Role Phone No Ref-Primary, Physician Primary Care Provider Mor Ramsey Unavailable Unavailable Case Samuel MD Unavailable [phone] Encounter Details Date Type Department Care Team [...] on file Legal Sex Female 8:25 AM EXPERIENCE PLANNING STRATEGIST Gender Identity Not on file Sexual Orientation Not on file documented as of this encounter Plan of Treatment Upcoming Encounters Date Type Department Care Team (Late st Contact Info) Description 07/10/2024 11:30 AM CDT Oncology Visit [facility] [address] [place] [phone] Case Samuel MD [address] [place] [address] 484, [address] [place] [address] documented as of this encounter Goals Goal Patient Goal Type Associated Problems Recent Progress Patient-Stated? Author Pain Management General On track( 025 12:40 PM EXPERIENCE PLANNING STRATEGIST) Yes Juhi Benson, RN Note: Goal Statement: [...] on filedocumented in this encounter Care Teams Project/Production Manager Imaging Relationship Specialty Start Date End Date No Ref-Primary, Physician PCP - General 03/15/24 06/17/24 Roxy Clearsky [facility] Medical Student 04/03/24 Case Samuel MD [address] [place] [address] 484, [address] [place] [address] Assigned Pediatric Specialist Provider 05/18/24 documented as of this encounter
--- OUTSIDE RECORDS SUMMARY | 2024-06-30 22:31 | XMS_ITS | Encounter Summary ---
Author Organization [place] Address [address] [place] [address]. [place] [address] Care Team Providers Care Trial Judge Name Role Phone No Ref-Primary, Physician Primary Care Provider Mor Ramsey Unavailable Unavailable Case Samuel MD Unavailable [phone] Encounter Details Date Type Department Care Team [...] on file Legal Sex Female 8:25 AM MINER Gender Identity Not on file Sexual Orientation Not on file documented as of this encounter Plan of Treatment Upcoming Encounters Date Type Department Care Team (Late st Contact Info) Description 07/10/2024 11:30 AM CDT Oncology Visit [facility] [address] [place] [phone] Case Samuel MD [address] [place] [address] 484, [address] [place] [address] documented as of this encounter Goals Goal Patient Goal Type Associated Problems Recent Progress Patient-Stated? Author Pain Management General On track( 025 12:40 PM MINER) Yes Juhi Benson, RN Note: Goal Statement: [...] on filedocumented in this encounter Care Teams Trial Judge Relationship Specialty Start Date End Date No Ref-Primary, Physician PCP - General 03/15/24 06/17/24 Roxy Banner Medical Student 04/03/24 Case Samuel MD [address] [place] [address] 484, [address] [place] [address] Assigned Pediatric Specialist Provider 05/18/24 documented as of this encounter
--- OUTSIDE RECORDS SUMMARY | 2024-06-30 22:31 | XMS_ITS | Encounter Summary ---
Author Organization [facility] Address [address] [place] [address] Care Team Providers Care Machined Parts Quality Inspector Name Role Phone No Ref-Primary, Physician Primary Care Provider Mor Ramsey Unavailable Unavailable Case Samuel MD Unavailable [phone] Reason for Visit * Reason Comments Sickle Cell Pain Crisis Chest Pain Encounter Details Date Type Department Care Team (Late st Contact Info) Description 05/20/2024 7:30 AM SEWAGE PLANT ATTENDANT - 05/20/2024 11:15 AM [facility] Emergency [facility] Emergency Room [address] [place] [address] Stiven Madsen MD [facility] [address], [place] [id number] Sickle cell pain crisis (H) Discharge Disposition: [...] on file Legal Sex Female 8:25 AM SEWAGE PLANT ATTENDANT Gender Identity Not on file Sexual Orientation Not on file documented as of this encounter Last Filed Vital Signs Vital Sign Reading Time Taken Comments Blood Pressure 115/59 05/20/2024 11:00 AM SEWAGE PLANT ATTENDANT Pulse 76 05/20/2024 11:00 AM SEWAGE PLANT ATTENDANT Temperature 37.3 C (99.2 F) 05/20/2024 7:33 AM SEWAGE PLANT ATTENDANT Respiratory Rate 20 05/20/2024 11:00 AM SEWAGE PLANT ATTENDANT Oxygen Saturation 100% 05/20/2024 11:00 AM SEWAGE PLANT ATTENDANT Inhaled Oxygen Concentration - - Weight 50.8 kg (112 lb) 05/20/2024 7:33 AM SEWAGE PLANT ATTENDANT Height 154.9 cm (5' 1) 05/20/2024 7:33 AM SEWAGE PLANT ATTENDANT Body Mass Index 21.16 05/20/2024 7:33 AM SEWAGE PLANT ATTENDANT documented in this encounter Discharge Instructions * Discharge Instructions* Stiven Madsen MD - 05/20/2024 11:08 AM SEWAGE PLANT ATTENDANT Please continue working with your polymerization supervisor after this and recent hospital visits. Try to make sure that you are drinking plenty of liquids to keep yourself hydrated. Continue to take your usual pain medications. If you have other concerns specifically productive cough, severe chest pain, shortness of breath, or other immediate concern we should reevaluate in the emergency department. GE PLANT ATTENDANT documented in this encounter Medications at Time [...] in 10 minutes. Message sent to provider. GE PLANT ATTENDANT * Suzanne Cadet RN - 05/20/2024 10:00 AM CST Pt requesting additional medication for pain. Also requesting medication for itching. Message sent to provider. Medicated per provider order. GE PLANT ATTENDANT * Yanna Huerta RN - 05/20/2024 8:43 AM CST IV infiltrated and removed, LES RN coming to try for IV GE PLANT ATTENDANT * Yanna Huerta RN - 05/20/2024 8:10 AM CST Introduced self to patient. Whiteboard updated. Plan of care and length of time discussed with patient. Will continue to monitor. Yanna Huerta RN.......05/20/2024 8:37 AM GE PLANT ATTENDANT * Stiven Madsen MD - 05/20/2024 7:31 [...] cell disease. Radial instantly establishing care in [place] and with several ED visits across the [...] with other provider:Did you involve another provider (nutrition consultant, MH, pharmacy, etc.)?: No Discharge. 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 Recently moved to [place] from [place], [place]. She is 1 of 9 [...] Social Connections: Socially Integrated (03/28/2024) Received from [facility] Social Connections Do you often feel [...] wave abnormality. Rate: 86 Rhythm: Sinus rhythm Anderson: 18 55 25 AR Interval: 154 QRS Interval: 78 QTc Interval: [...] my direction. Stiven Madsen M.D. Emergency Medicine [facility] EMERGENCY ROOM [address] [place] [address] Dept: [phone] Stiven Madsen MD 05/20/24 1358 GE PLANT ATTENDANT * Stefani Huizar RN - 05/20/2024 7:27 AM CST Pt c/o pain all over body, hx sickle cell and feels like flare up started 2 days ago. Pt also c/o left sided chest pain, pain with taking a deep breath. Pt was seen here yesterday as well for same states did not have chest pain then GE PLANT ATTENDANT GE PLANT ATTENDANT documented in this encounter Plan of Treatment Upcoming Encounters Date Type Department Care Team (Late st Contact Info) Description 07/10/2024 11:30 AM CDT Oncology Visit [facility] [address] [place] [address] Case Samuel MD [address] [facility] 484, [address] [place] [address] documented as of this encounter Goals Goal Patient Goal Type Associated Problems Recent Progress Patient-Stated? Author Pain Management General On track( 025 12:40 PM SEWAGE PLANT ATTENDANT) Yes Juhi Benson, SOFIA Note: Goal Statement: [...] CHEST 2 VIEWS STAT 05/20/2024 9:30 AM SEWAGE PLANT ATTENDANT EXTRA TUBE STAT 05/20/2024 9:09 AM SEWAGE PLANT ATTENDANT EXTRA GREEN TOP (LITHIUM HEPARIN) TUBE STAT 05/20/2024 9:09 AM SEWAGE PLANT ATTENDANT RBC AND PLATELET MORPHOLOGY STAT 05/20/2024 9:09 AM SEWAGE PLANT ATTENDANT CBC WITH PLATELETS AND DIFFERENTIAL STAT 05/20/2024 9:09 AM SEWAGE PLANT ATTENDANT CBC WITH PLATELETS & DIFFERENTIAL STAT 05/20/2024 9:09 AM SEWAGE PLANT ATTENDANT RETICULOCYTE COUNT STAT 05/20/2024 9: 09 AM SEWAGE PLANT ATTENDANT BASIC METABOLIC PANEL STAT 05/20/2024 9:09 AM SEWAGE PLANT ATTENDANT BASIC METABOLIC PANEL STAT 05/20/2024 8:21 AM SEWAGE PLANT ATTENDANT ECG 12-LEAD WITH MUSE SJN,SJO,WWH STAT 05/20/2024 7:36 AM SEWAGE PLANT ATTENDANT documented in this encounter Results * Chest XR, PA & LAT (05/20/2024 9:30 AM SEWAGE PLANT ATTENDANT) Anatomical Region Laterality Modality Chest Digital Radiogra phy 05/20/2024 9:30 AM SEWAGE PLANT ATTENDANT Impressions 05/20/2024 9:38 AM SEWAGE PLANT ATTENDANT IMPRESSION: Slightly increased bilateral mid to lower lung patchy opacities which may reflect atelectatic changes or pneumonic infiltrates. No pleural effusion. Normal heart size. Multiple H-shaped thoracic vertebra consistent with the history of sickle cell disease. Narrative 05/20/2024 9:38 AM SEWAGE PLANT ATTENDANT EXAM: XR CHEST 2 VIEWS LOCATION: [facility] DATE: 05/20/2024 INDICATION: Chest pain, sickle cell patient COMPARISON: Chest x-ray 05/08/2024 Procedure Note Twin Marin MD - 05/20/2024 EXAM: XR CHEST 2 VIEWS LOCATION: [facility] DATE: 05/20/2024 INDICATION: Chest pain, sickle cell patient COMPARISON: Chest x-ray 05/08/2024 IMPRESSION: Slightly increased bilateral mid to lower lung patchyopacities which may reflect atelectatic changes or pneumonic infiltrates.No pleural effusion. Normal heart size. Multiple H-shaped thoracicvertebra consistent with the history of sickle cell disease. us Stiven Madsen MD IMG DIAGNOSTIC IMAGING ORDERA BLES Final Result * (ABNORMAL) RBC and Platelet Morphology (05/20/2024 9:09 AM [facility]) [facility] RBC Morphology Confirmed RBC Indices 05/20/2024 9:47 AM [facility] Platelet Assessment Automated Count Confirmed. Platelet morphology is normal. Automated Count Confirmed. Platelet morphology is normal. JARET 05/20/2024 9:47 AM [facility] Polychromasia Slight(A) None Seen [facility] 05/20/2024 9:47 AM [facility] Reactive Lymphocytes Present(A) None Seen [facility] 05/20/2024 9:47 AM [facility] Sickle Cells Moderate(A) None Seen [facility] 05/20/2024 9:47 AM [facility] Target Cells Slight(A) None Seen [facility] 05/20/2024 9:47 AM [facility] Blood VENOUS LINE / Unknown Venipuncture / Unknown 05/20/2024 9:09 AM [facility] 05/20/2024 9:14 AM [facility] Stiven Madsen MD LAB - BLOOD ORDERABLES Final Result [facility] [address] [facility] [address], [facility] * (ABNORMAL) Basic metabolic panel (05/20/2024 9:09 AM [facility]) [facility] Sodium 137 135 - 145 mmol/L 05/20/2024 9:42 AM [facility] Potassium 4.8 3.4 - 5.3 mmol/L 05/20/2024 9:42 AM [facility] Chloride 105 98 - 107 mmol/L 05/20/2024 9:42 AM [facility] Carbon Dioxide (CO2) 22 22 - 29 mmol/L 05/20/2024 9:42 AM [facility] Anion Gap 10 7 - 15 mmol/L 05/20/2024 9:42 AM [facility] Urea Nitrogen 7.4 6.0 - 20.0 mg/dL 05/20/2024 9:42 AM [facility] Creatinine 0.82 0.51 - 0.95 mg/dL 05/20/2024 9:42 AM [facility] GFR Estimate >90 >60 mL/min/1.7 3m2 05/20/2024 9:42 AM [facility] Comment:eGFR calculated usin 2020 CKD-EPI equation. Calcium 9.3 8.8 - 10.4 mg/dL 05/20/2024 9:42 AM [facility] Comment:Reference intervals for this test were updated on 11/09/2023 to reflect our healthy population more accurately. There may be differences in the flagging of prior results with similar values performed with this method. Those prior results can be interpreted in the context of the updated reference intervals. Glucose 107(H) 70 - 99 mg/dL 05/20/2024 9:42 AM [facility] Blood VENOUS LINE / Unknown Venipuncture / Unknown 05/20/2024 9:09 AM SEWAGE PLANT ATTENDANT 05/20/2024 9:14 AM SEWAGE PLANT ATTENDANT Stiven Madsen MD LAB - BLOOD ORDERABLES Final Result Performing Organization Address City/[facility]/ZIP Co de Phone Number [facility] [address] [place], [place] [address] [address], [facility] * Extra Green Top ([place] Heparin) Tube (05/20/2024 9:09 AM SEWAGE PLANT ATTENDANT) Pathologist [facility] Hold Specimen JI 05/20/2024 10:16 AM [facility] Blood VENOUS LINE / Unknown Venipuncture / Unknown 05/20/2024 9:09 AM SEWAGE PLANT ATTENDANT 05/20/2024 9:14 AM SEWAGE PLANT ATTENDANT Deshawn Arredondo MD LAB - BLOOD ORDERABLES Liss l Result [facility] [address] [address], [facility] * (ABNORMAL) CBC with platelets and differential (05/20/2024 9:09 AM SEWAGE PLANT ATTENDANT) WBC Count 16.0(H) 4.0 - 11.0 10e3/uL 05/20/2024 9:47 AM [facility] RBC Count 2.57(L) 3.80 - 5.20 10e6/uL 05/20/2024 9:47 AM [facility] Hemoglobin 8.4(L) 11.7 - 15.7 g/dL 05/20/2024 9:47 AM [facility] Hematocrit 23.7(L) 35.0 - 47.0 % 05/20/2024 9:47 AM [facility] MCV 92 78 - 100 fL 05/20/2024 9:47 AM [facility] MCH 32.7 26.5 - 33.0 pg 05/20/2024 9:47 AM [facility] MCHC 35.4 31.5 - 36.5 g/dL 05/20/2024 9:47 AM [facility] RDW 22.8(H) 10.0 - 15.0 % 05/20/2024 9:47 AM [facility] Platelet Count 541(H) 150 - 450 10e3/uL 05/20/2024 9:47 AM [facility] % Neutrophils 59 % 05/20/2024 9:47 AM [facility] % Lymphocytes 23 % 05/20/2024 9:47 AM [facility] % Monocytes 15 % 05/20/2024 9:47 AM [facility] % Eosinophils 2 % 05/20/2024 9:47 AM [facility] % Basophils 1 % 05/20/2024 9:47 AM [facility] % Immature Granulocytes 1 % 05/20/2024 9:47 AM [facility] NRBCs per 100 WBC 2(H) <1 /100 025 9:47 AM [facility] Absolute Neutrophils 9.4(H) 1.6 - 8.3 10e3/uL 05/20/2024 9:47 AM [facility] Absolute Lymphocytes 3.6 0.8 - 5.3 10e3/uL 05/20/2024 9:47 AM [facility] Absolute Monocytes 2.4(H) 0.0 - 1.3 10e3/uL 05/20/2024 9:47 AM [facility] Absolute Eosinophils 0.3 0.0 - 0.7 10e3/uL 05/20/2024 9:47 AM [facility] Absolute Basophils 0.2 0.0 - 0.2 10e3/uL 05/20/2024 9:47 AM [facility] Absolute Immature Granulocytes 0.2 <=0.4 10e3/uL 05/20/2024 9:47 AM [facility] Absolute NRBCs 0.2 10e3/uL 05/20/2024 9:47 AM [facility] Blood VENOUS LINE / Unknown Venipuncture / Unknown 05/20/2024 9:09 AM SEWAGE PLANT ATTENDANT 05/20/2024 9:14 AM SEWAGE PLANT ATTENDANT Stiven Madsen MD LAB - BLOOD ORDERABLES Final Result Performing Organization Address [facility] de Phone Number [facility] [address] [place] [address] * (ABNORMAL) Reticulocyte count (05/20/2024 9:09 AM SEWAGE PLANT ATTENDANT) % Reticulocyte 25.1(H) 0.5 - 2.0 % 05/20/2024 9:19 AM [facility] Absolute Reticulocyte 0.646(H) 0.025 - 0.095 10e6/uL 05/20/2024 9:19 AM [facility] Blood VENOUS LINE / Unknown Venipuncture / Unknown 05/20/2024 9:09 AM SEWAGE PLANT ATTENDANT 05/20/2024 9:14 AM SEWAGE PLANT ATTENDANT Stiven Madsen MD LAB - BLOOD ORDERABLES Final Result Performing Organization Address [facility] Co de Phone Number [facility] [address] [place], [place] [address] * (ABNORMAL) Basic metabolic panel (05/20/2024 8:21 AM SEWAGE PLANT ATTENDANT) Sodium 136 135 - 145 mmol/L 05/20/2024 8:47 AM [facility] Potassium 5.1 3.4 - 5.3 mmol/L 05/20/2024 8:47 AM [facility] Chloride 105 98 - 107 mmol/L 05/20/2024 8:47 AM [facility] Carbon Dioxide (CO2) 21(L) 22 - 29 mmol/L 05/20/2024 8:47 AM [facility] Anion Gap 10 7 - 15 mmol/L 05/20/2024 8:47 AM [facility] Urea Nitrogen 7.5 6.0 - 20.0 mg/dL 05/20/2024 8:47 AM [facility] Creatinine 0.84 0.51 - 0.95 mg/dL 05/20/2024 8:47 AM [facility] GFR Estimate >90 >60 mL/min/1.7 3m2 05/20/2024 8:47 AM [facility] Comment:eGFR calculated usin 2020 CKD-EPI equation. Calcium 9.1 8.8 - 10.4 mg/dL 05/20/2024 8:47 AM [facility] Comment:Reference intervals for this test were updated on 11/09/2023 to reflect our healthy population more accurately. There may be differences in the flagging of prior results with similar values performed with this method. Those prior results can be interpreted in the context of the updated reference intervals. Glucose 95 70 - 99 mg/dL 05/20/2024 8:47 AM [facility] Blood VENOUS LINE / Unknown Venipuncture / Unknown 05/20/2024 8:21 AM SEWAGE PLANT ATTENDANT 05/20/2024 8:31 AM [facility] us Stiven Madsen MD LAB - BLOOD ORDERABLES Final Result [facility] [address] [place] [address], [facility] * ECG 12-LEAD WITH MUSE (LHE) (05/20/2024 7:36 AM [facility]) Systolic Blood Pressure 111 mmHg RADIOLOGY RESULTS Diastolic Blood Pressure 56 mmHg RADIOLOGY RESULTS Ventricular Rate 86 BPM RAD IOLOGY RESULTS Atrial Rate 86 BPM RADIOLOG Y RESULTS AR Interval 154 ms RADIOLOG Y RESULTS QRS Duration 78 ms RADIOLO GY RESULTS QT 370 ms RADIOLOGY RESULTS QTc 442 ms RADIOLOGY RESULTS P Anderson 18 degrees RADIOLOGY RESULTS R AXIS 55 degrees RADIOLOGY RESULTS T Anderson 25 degrees RADIOLOGY RESULTS Interpretation ECG Sinus rhythm Nonspecific T wave abnormality Abnormal ECG When compared with ECG of 14-May-2024 22:12, Nonspecific T wave abnormality now evident in Inferior leads Confirmed by SEE ED PROVIDER NOTE FOR, ECG INTERPRETATION (4000), industrial editor Estefany Silvinostevie ([id number]) on 05/20/2024 7:48:17 AM RADIOLOGY RESULTS 05/20/2024 7:36 AM SEWAGE PLANT ATTENDANT 05/20/2024 7:48 AM SEWAGE PLANT ATTENDANT us Deshawn Arredondo MD ECG ORDERABLES Edited [...] For 1 dose $Given 05/20/2024 9:59 AM SEWAGE PLANT ATTENDANT 25 mg HYDROmorphone (DILAUDID) injection 2 mg 2 mg, Intravenous, EVERY HOUR, First dose on 05/20/24 at 0800, For 3 doses $Given 05/20/2024 10:58 AM SEWAGE PLANT ATTENDANT 2 mg $Given 05/20/2024 9:56 AM SEWAGE PLANT ATTENDANT 2 mg $Given 05/20/2024 8:22 AM SEWAGE PLANT ATTENDANT 2 mg lactated ringers infusion at 500 mL/hr, Intravenous, CONTINUOUS, Starting on 05/20/24 at 0800, Until 05/20/24 at 0959 Restarted 05/20/2024 9:30 AM SEWAGE PLANT ATTENDANT 500 mL/hr $New Bag 05/20/2024 8:22 AM SEWAGE PLANT ATTENDANT 500 mL/hr ondansetron (ZOFRAN) injection 8 mg 8 mg, Intravenous, EVERY 6 HOURS PRN, nausea, vomiting, Administer over 2-5 Minutes, Starting on 05/20/24 at 0744 $Given 05/20/2024 8:22 AM SEWAGE PLANT ATTENDANT 8 mg documented in this encounter Active and Recently Administered Medications Times are shown in SEWAGE PLANT ATTENDANT. Scheduled Medication Order 05/18/2024 05/19/2024 05/20/2024 diphenhydrAMINE (BENADRYL) capsule 25 mg (COMPLETED) 25 mg, Oral, ONCE, On 05/20/24 at 1000, For 1 dose 0959 ($Given - Provi nas: Suzanne Cadet RN) HYDROmorphone (DILAUDID) injection 2 mg (COMPLETED) 2 mg, Intravenous, EVERY HOUR, First dose on 05/20/24 at 0800, For 3 doses 0822 ($Given - Provi nas: Yanna Huerta, SOFIA)0956 ($Given - Provider: Suzanne Cadet, RN)1058 ($Given - Provider: Suzanne Cadet RN) [...] RN) documented in this encounter Care Teams Machined Parts Quality Inspector Relationship Specialty Start Date End Date No Ref-Primary, Physician PCP - General 03/15/24 06/17/24 Mor Ramsey Medical Student 04/03/24 Case Samuel MD [address] [place] [address] 484, [address] [place] [address] Assigned Pediatric Specialist Provider 05/18/24 documented as of this encounter
--- OUTSIDE RECORDS SUMMARY | 2024-06-30 22:31 | XMS_ITS | Encounter Summary ---
Author Organization [facility] Address [address] [place] [address]. [place] [address] Care Team Providers Care Gusset Edger Name Role Phone No Ref-Primary, Physician Primary Care Provider Mor Ramsey Unavailable Unavailable Case Samuel MD Unavailable [phone] Juhi Benson RN Unavailable Unavailable Reason for Visit * Reason Comments Sickle Cell Pain Crisis Encounter Details Date Type Department Care Team (Late st Contact Info) Description 06/01/2024 11:41 PM RUG CLEANING SUPERVISOR - 06/02/2024 2:35 AM [facility] Emergency [facility] Emergency Room [address] [place] [address] Noel Pinzon MD [address] [place] [address] Sickle cell pain crisis (H) Discharge Disposition: [...] on file Legal Sex Female 8:25 AM RUG CLEANING SUPERVISOR Gender Identity Not on file Sexual Orientation Not on file documented as of this encounter Last Filed Vital Signs Vital Sign Reading Time Taken Comments Blood Pressure 117/69 06/02/2024 2:15 AM RUG CLEANING SUPERVISOR Pulse 73 06/02/2024 2:15 AM RUG CLEANING SUPERVISOR Temperature 36.7 C (98.1 F) 06/01/2024 10:44 PM RUG CLEANING SUPERVISOR Respiratory Rate 15 06/02/2024 2:00 AM RUG CLEANING SUPERVISOR Oxygen Saturation 95% 06/02/2024 2:15 AM RUG CLEANING SUPERVISOR Inhaled Oxygen Concentration - - Weight 54.4 kg (120 lb) 06/01/2024 10:44 PM RUG CLEANING SUPERVISOR Height - - Body Mass Index 22.67 05/31/2024 9:39 PM RUG CLEANING SUPERVISOR documented in this encounter Discharge Instructions * Discharge Instructions* Noel Pinzon MD - 06/02/2024 1:57 AM RUG CLEANING SUPERVISOR Continue outpatient follow up and cares with your specialist. supervisor beater room your prescription for dilaudid tomorrow and take as directed. CLEANING SUPERVISOR CLEANING SUPERVISOR documented in this encounter Medications at Time [...] questions were answered. Vitally stable upon discharge. CLEANING SUPERVISOR CLEANING SUPERVISOR * Noel Pinzon MD - 06/01/2024 11:07 PM CST Emergency Department Encounter Evaluation Date & Time: No admission date for patient encounter. CHIEF COMPLAINT: Sickle Cell Pain Crisis Triage Note:PT is coming in tonight for a sickle cell crisis. Pt has been waiting for her pharmacy to fill her RX. They stated that pharmacy might have the RX tomorrow. No OTC medication ZOOLOGY PROFESSOR. ED COURSE & MEDICAL DECISION MAKING: Pt [...] history is provided by the patient. No well testing operator was used. Gianna Hernández is a 29 [...] my direction. Noel Pinzon DO Emergency Medicine [facility] EMERGENCY ROOM 06/01/2024 11:07 PM Noel Pinzon MD 06/02/24 0236 CLEANING SUPERVISOR * Aminata Farley, RN - 06/01/2024 10:45 PM CST PT is coming in tonight for a sickle cell crisis. Pt has been waiting for her pharmacy to fill her RX. They stated that pharmacy might have the RX tomorrow. No OTC medication ZOOLOGY PROFESSOR. Triage Assessment (Adult) Row Name 06/01/24 2244 Triage Assessment Airway WDL WDL Respiratory WDL Respiratory WDL WDL Skin Circulation/Temperature WDL Skin Circulation/Temperature WDL WDL Cardiac WDL Cardiac WDL WDL Peripheral/Neurovascular WDL Peripheral Neurovascular WDL WDL Cognitive/Neuro/Behavioral WDL Cognitive/Neuro/Behavioral WDL WDL CLEANING SUPERVISOR documented in this encounter Plan of Treatment Upcoming Encounters Date Type Department Care Team (Late st Contact Info) Description 07/10/2024 11:30 AM CDT Oncology Visit [facility] [address] [place] [address] Case Samuel MD [address] [place] [address] 484, [address] [place], [place] [id number] documented as of this encounter Goals Goal Patient Goal Type Associated Problems Recent Progress Patient-Stated? Author Pain Management General On track( 025 12:40 PM RUG CLEANING SUPERVISOR) Yes Juhi Benson, RN Note: Goal [...] For 1 dose $Given 06/02/2024 1:17 AM RUG CLEANING SUPERVISOR 50 mg heparin lock flush 10 [...] each port lumen $Given 06/02/2024 2:29 AM RUG CLEANING SUPERVISOR 5 mLs HYDROmorphone (DILAUDID) injection 2 mg 2 mg, Intravenous, ONCE, On Citlali 06/01/24 at 2330, For 1 dose $Given 06/02/2024 12:07 AM RUG CLEANING SUPERVISOR 2 mg HYDROmorphone (DILAUDID) injection 2 mg 2 mg, Intravenous, EVERY 1 HOUR PRN, severe pain, Starting on Citlali 06/01/24 at 2308, For 2 doses $Given 06/02/2024 2:17 AM RUG CLEANING SUPERVISOR 2 mg $Given 06/02/2024 1:16 AM RUG CLEANING SUPERVISOR 2 mg lactated ringers BOLUS 1,000 mL Intravenous, 1,000 mL, ONCE, On Citlali 06/01/24 at 2330, For 1 dose $New Bag 06/02/2024 12:06 AM RUG CLEANING SUPERVISOR 1,000 mLs ondansetron (ZOFRAN) injection 8 mg 8 mg, Intravenous, ONCE, Administer over 2-5 Minutes, On Citlali 06/01/24 at 2330, For 1 dose $Given 06/02/2024 12:06 AM RUG CLEANING SUPERVISOR 8 mg sodium chloride (PF) 0.9% [...] each port lumen. $Given 06/02/2024 12:12 AM RUG CLEANING SUPERVISOR 20 mLs documented in this encounter Active and Recently Administered Medications Times are shown in RUG CLEANING SUPERVISOR. Scheduled Medication Order 05/31/2024 06/01/2024 06/02/2024 diphenhydrAMINE [...] lumen documented in this encounter Care Teams Gusset Edger Relationship Specialty Start Date End Date No Ref-Primary, Physician PCP - General 03/15/24 06/17/24 Mro Ramsey Medical Student 04/03/24 Case Samuel MD [address] [place] [address] 484, [address] [place] [address] Assigned Pediatric Specialist Provider 05/18/24 Juhi Benson, RN Specialty General Freight Agent Hematology & Oncology 05/29/24 documented as of this encounter
--- OUTSIDE RECORDS SUMMARY | 2024-06-30 22:31 | XMS_ITS | Encounter Summary ---
Author Organization [place] Address [address] [place] [address]. [place] [address] Care Team Providers Care Support Director Name Role Phone No Ref-Primary, Physician Primary Care Provider Mor Ramsey Unavailable Unavailable Case Samuel MD Unavailable [phone] Juhi Benson RN Unavailable Unavailable Encounter Details [...] on file Legal Sex Female 8:25 AM SLD EDUCATIONAL AIDE Gender Identity Not on file Sexual Orientation Not on file documented as of this encounter Plan of Treatment Upcoming Encounters Date Type Department Care Team (Late st Contact Info) Description 07/10/2024 11:30 AM CDT Oncology Visit [facility] [address] [place] [address] Case Samuel MD [address] [place] [address] 484, [address] [place] [address] documented as of this encounter Goals Goal Patient Goal Type Associated Problems Recent Progress Patient-Stated? Author Pain Management General On track( 025 12:40 PM SLD EDUCATIONAL AIDE) Yes Juhi Benson, RN Note: Goal Statement: [...] on filedocumented in this encounter Care Teams Support Director Relationship Specialty Start Date End Date No Ref-Primary, Physician PCP - General 03/15/24 06/17/24 Mor Ramsey Medical Student 04/03/24 Case Samuel MD [address] [place] [address] 484, [address] [place] [address] Assigned Pediatric Specialist Provider 05/18/24 Juhi Benson, RN Specialty Weight Control Lecturer Hematology & Oncology 05/29/24 documented as of this encounter
--- OUTSIDE RECORDS SUMMARY | 2024-06-30 22:31 | XMS_ITS | Encounter Summary ---
Author Organization [place] Address [address] [place] [address]. [place] [address] Care Team Providers Care Respiratory Services Manager Name Role Phone No Ref-Primary, Physician Primary Care Provider Mor Ramsey Unavailable Unavailable Case Samuel MD Unavailable [phone] Encounter Details Date Type Department Care Team (Late st Contact Info) Description 05/22/2024 MyC Medical Advice [facility] Interventional Radiology [address] [place] [address] Yadi Mahan, RN Social History [...] on file Legal Sex Female 8:25 AM CAKE PRESS OPERATOR Gender Identity Not on file Sexual Orientation Not on file documented as of this encounter Plan of Treatment Upcoming Encounters Date Type Department Care Team (Late st Contact Info) Description 07/10/2024 11:30 AM CDT Oncology Visit [facility] [address] [place] [address] Case Smauel MD [address] [place] [address] 484, [address] [place] [address] documented as of this encounter Goals Goal Patient Goal Type Associated Problems Recent Progress Patient-Stated? Author Pain Management General On track( 025 12:40 PM CAKE PRESS OPERATOR) Yes Juhi Benson, SOFIA Note: [...] on filedocumented in this encounter Care Teams Respiratory Services Manager Relationship Specialty Start Date End Date No Ref-Primary, Physician PCP - General 03/15/24 06/17/24 Mor Ramsey Medical Student 04/03/24 Case Samuel MD [address] [place] [address] 484, [address] [place] [address] Assigned Pediatric Specialist Provider 05/18/24 documented as of this encounter
--- OUTSIDE RECORDS SUMMARY | 2024-06-30 22:31 | XMS_ITS | Encounter Summary ---
Author Organization [place] Address [address] [place] [address]. [place] [address] Care Team Providers Care Wool Sampler Name Role Phone No Ref-Primary, Physician Primary Care Provider Mor Ramsey Unavailable Unavailable Case Samuel MD Unavailable [phone] Juhi Benson RN Unavailable Unavailable Reason for Visit * Reason Comments Sickle Cell Pain Crisis Encounter Details Date Type Department Care Team (Late st Contact Info) Description 05/28/2024 11:56 PM COAL DIGGER - 05/29/2024 3:54 AM COAL DIGGER Emergency [facility] Emergency Room [facility] [place] [address] Lenin Smith MD [address] [place] [id number] Sickle cell disease with crisis (H) Discharge [...] on file Legal Sex Female 8:25 AM COAL DIGGER Gender Identity Not on file Sexual Orientation Not on file documented as of this encounter Last Filed Vital Signs Vital Sign Reading Time Taken Comments Blood Pressure 123/66 05/29/2024 3:15 AM COAL DIGGER Pulse 87 05/29/2024 3:15 AM COAL DIGGER Temperature 36.6 C (97.9 F) 05/29/2024 12:01 AM COAL DIGGER Respiratory Rate 18 05/29/2024 12:01 AM COAL DIGGER Oxygen Saturation 93% 05/29/2024 3:15 AM COAL DIGGER Inhaled Oxygen Concentration - - Weight 51.7 kg (114 lb) 05/29/2024 12:01 AM COAL DIGGER Height 154.9 cm (5' 1) 05/29/2024 12:01 AM COAL DIGGER Body Mass Index 21.54 05/29/2024 12:01 AM COAL DIGGER documented in this encounter Discharge Instructions * Attachments The following attachments cannot be sent through Care Everywhere. * Sickle Cell Crisis (Russian) documented in this encounter Medications at [...] time. Patient comfortable and agrees with plan. DIGGER * Lenin Smith MD - 05/29/2024 12:17 [...] go home. Has an appointment with her bonding machine operator today. Willfollow-up then. No indication for [...] with other provider:Did you involve another provider (aws consultant, , pharmacy, etc.)?: No Discharge. No [...] information was obtained from: Patient Use of Pneumatic Hoist Operator: N/A Gianna Hernández is a 29 [...] daughters second birthdayand they walked around the [facility], patient believes she might have over [...] home in stable condition. 05/[address] [facility] for bilateral port placements with apheresis [...] Currently Drug use: Never Social History Narrative Kbgk-rv-jvoz mom. Recently moved to [place] from [place], [place]. She is 1 of 9 [...] Social Connections: Socially Integrated (03/28/2024) Received from [facility] [employer] [facility] Social Connections Do you often feel lonely [...] and the provider's statements to me. I, Leinn Smith MD attest that Gisele Brandt is acting in a scribe capacity, has observed my performance of the services and has documented them in accordance with my direction. Lenin Smith M.D. Emergency Medicine [facility] EMERGENCY ROOM [facility] [id number] Dept: [phone] Lenin Smith MD 05/29/24 0412 DIGGER * Moy Stewart RN - 05/29/2024 12:02 [...] WDL WDL Cognitive/Neuro/Behavioral WDL Cognitive/Neuro/Behavioral WDL WDL DIGGER documented in this encounter Plan of Treatment Upcoming Encounters Date Type Department Care Team (Late st Contact Info) Description 07/10/2024 11:30 AM CDT Oncology Visit [facility] [address] [place] [address] Case Samuel MD [address] [place] [address] 484, [address] [place] [address] documented as of this encounter Goals Goal Patient Goal Type Associated Problems Recent Progress Patient-Stated? Author Pain Management General On track( 025 12:40 PM COAL DIGGER) Yes Juhi Benson, SOFIA Note: Goal Statement: [...] MANUAL DIFFERENTIAL STAT 05/29/2024 1 2:53 AM COAL DIGGER CBC WITH PLATELETS AND DIFFERENTIAL STAT 05/29/2024 12:53 AM COAL DIGGER CBC WITH PLATELETS & DIFFERENTIAL STAT 05/29/2024 12:53 AM COAL DIGGER RETICULOCYTE COUNT STAT 05/29/2024 12 :53 AM COAL DIGGER documented in this encounter Results * (ABNORMAL) Manual Differential (05/29/2024 12:53 AM [facility]) [facility] % Neutrophils 54 % JARET 05/29/2024 1:58 [...] Venipuncture / Unknown 05/29/2024 12:53 AM [facility] 05/29/2024 12:58 AM COAL DIGGER us Lenin Smith MD LAB - BLOOD ORDERABLES Final Result Performing Organization Address City/[facility]/ZIP Co de Phone Number [facility] [address] [place] [address], [facility] * (ABNORMAL) CBC with platelets and differential (05/29/2024 12:53 AM COAL DIGGER) WBC Count 15.6(H) 4.0 - 11.0 10e3/uL [...] Unknown Venipuncture / Unknown 05/29/2024 12:53 AM COAL DIGGER 05/29/2024 12:58 AM COAL DIGGER us Lenin Smith MD LAB - BLOOD ORDERABLES Final Result Performing Organization Address City/[facility]/ZIP Co de Phone Number [facility] [address] [place] [facility], [facility] * (ABNORMAL) Reticulocyte count (05/29/2024 12:53 AM COAL DIGGER) % Reticulocyte 28.6(H) 0.5 - 2.0 % 05/29/2024 1:27 AM COAL DIGGER [facility] Absolute Reticulocyte 0.616(H) 0.025 - 0.095 10e6/uL 05/29/2024 1:27 AM COAL DIGGER [facility] Blood VENOUS LINE / Unknown Venipuncture / Unknown 05/29/2024 12:53 AM COAL DIGGER 05/29/2024 12:58 AM COAL DIGGER us Lenin Smith MD LAB - BLOOD ORDERABLES Final Result [facility] [address] [place] [address], [facility] documented in this [...] For 1 dose $Given 05/29/2024 1:26 AM COAL DIGGER 25 mg heparin lock flush 10 unit/mL [...] each port lumen $Given 05/29/2024 3:38 AM COAL DIGGER 5 mLs HYDROmorphone (DILAUDID) injection 2 mg 2 mg, Intravenous, EVERY 1 HOUR PRN, severe pain, moderate pain, Starting on Wed05/29/24 at 0010, For 3 doses $Given 05/29/2024 3:37 AM COAL DIGGER 2 mg $Given 05/29/2024 2:37 AM COAL DIGGER 2 mg $Given 05/29/2024 1:19 AM COAL DIGGER 2 mg lactated ringers BOLUS 1,000 mL Intravenous, 1,000 mL, ONCE, at 1,000 mL/hr, Administer over 1 Hours, On Wed05/29/24 at 0030, For 1 dose $New Bag 05/29/2024 1:01 AM COAL DIGGER 1,000 mLs 1000 mL/hr sodium chloride (PF) 0.9% PF flush 10-20 mL 10-20 mL, Intracatheter, EVERY 1 MIN PRN, line flush, post meds or blood draw, to flush each lumen of the CVC Implanted port, Starting on Wed05/29/24 at 0008, 10 mL per port lumen post IV meds; 20 mL per port lumen post post blood draw. $Given 05/29/2024 3:37 AM COAL DIGGER 10 mLs sodium chloride (PF) 0.9% PF [...] Recently Administered Medications Times are shown in COAL DIGGER. Scheduled Medication Order 05/27/2024 05/28/2024 05/29/2024 diphenhydrAMINE [...] lumen documented in this encounter Care Teams Wool Sampler Relationship Specialty Start Date End Date No Ref-Primary, Physician PCP - General 03/15/24 06/17/24 Mor Ramsey Medical Student 04/03/24 Case Samuel MD [address] [place] [address] 484, [address] [place], [place] [address] Assigned Pediatric Specialist Provider 05/18/24 Juhi Benson, RN Specialty Automobile Accessories Salesperson Hematology & Oncology 05/29/24 documented as of this encounter
--- OUTSIDE RECORDS SUMMARY | 2024-06-30 22:31 | XMS_ITS | Encounter Summary ---
Author Organization [place] Address [address] [place] [address]. [place] [address] Care Team Providers Care Prototype Engineer Manager Name Role Phone No Ref-Primary, Physician [...] file Legal Sex Female 8:25 AM TRANSMISSION ENGINEER Gender Identity Not on file Sexual Orientation Not on file documented as of this encounter Plan of Treatment Upcoming Encounters Date Type Department Care Team (Late st Contact Info) Description 07/10/2024 11:30 AM CDT Oncology Visit [facility] [address] [place] [phone] Case Samuel MD [address] [place] [address] 484, [address] [place] [address] documented as of this encounter Goals Goal Patient Goal Type Associated Problems Recent Progress Patient-Stated? Author Pain Management General On track( 025 12:40 PM TRANSMISSION ENGINEER) Yes Juhi Benson, RN Note: Goal [...] on filedocumented in this encounter Care Teams Prototype Engineer Manager Relationship Specialty Start Date End Date No Ref-Primary, Physician PCP - General 03/15/24 06/17/24 Roxy [facility] Medical Student 04/03/24 Case Samuel MD [address] [place] [address] 484, [address] [place] [address] Assigned Pediatric Specialist Provider 05/18/24 documented as of this encounter
--- OUTSIDE RECORDS SUMMARY | 2024-06-30 22:32 | XMS_ITS | Encounter Summary ---
Author Organization [place] Address [address] [place] [address]. [place] [address] Care Team Providers Care Lunch Cook Name Role Phone No Ref-Primary, Physician Primary Care Provider Mor Ramsey Unavailable Unavailable Case Samuel MD Unavailable [phone] Juhi Benson RN Unavailable Unavailable Reason for Visit * Reason Onset Date Comments Refill Request 06/05/2024 Encounter Details Date Type Department Care Team (Late st Contact Info) Description 06/05/2024 MyC Refill [facility] [address] [place] [address] Case Samuel MD [address] [place] [address] 484, [address] [place] [address] Refill Request Social History Tobacco [...] on file Legal Sex Female 8:25 AM COPY SUPERVISOR Gender Identity Not on file Sexual [...] fill date and by whom: Dr. Samuel AGRICULTURAL SCIENCES PROFESSOR Reviewed: Yes Send to provider: Routed to dr. Samuel and ESTEVAN Reynaga SUPERVISOR documented in this encounter Plan of Treatment Upcoming Encounters Date Type Department Care Team (Late st Contact Info) Description 07/10/2024 11:30 AM CDT [facility] [address] [place] [address] Case Samuel MD [address] [facility] 484, [address] [place] [address] documented as of this encounter Goals Goal Patient Goal Type Associated Problems Recent Progress Patient-Stated? Author Pain Management General On track( 025 12:40 PM COPY SUPERVISOR) Yes Juhi Benson RN Note: Goal [...] crisis documented in this encounter Care Teams Lunch Cook Relationship Specialty Start Date End Date No Ref-Primary, Physician PCP - General 03/15/24 06/17/24 Mor Ramsey Medical Student 04/03/24 Case Samuel MD [address] [place] [address] 484, [address] [place], [place] [address] Assigned Pediatric Specialist Provider 05/18/24 Juhi Benson RN Specialty Generation Technologist Hematology & Oncology 05/29/24 documented as of this encounter
--- OUTSIDE RECORDS SUMMARY | 2024-06-30 22:32 | XMS_ITS | Encounter Summary ---
Author Organization [place] Address [address] [place] [address]. [place] [address] Care Team Providers Care Machine Brusher Name Role Phone Roxy Mor Unavailable Unavailable Case Samuel MD Unavailable [phone] Juhi Benson RN Unavailable Unavailable Veronica Joseph MD Primary Care Provider [phone] Encounter Details Date Type Department Care Team (Latest Contact Info) Description 06/26/2024 Travel Social History Tobacco Use Types Packs/Day [...] on file Legal Sex Female 8:25 AM STAGE DIRECTOR Gender Identity Not on file Sexual Orientation Not on file documented as of this encounter Plan of Treatment Upcoming Encounters Date Type Department Care Team (Late st Contact Info) Description 07/10/2024 11:30 AM CDT Oncology Visit [facility] [address] [place] [address] Case Samuel MD [address] [place] [address] 484, [address] [place], [place] [address] documented as of this encounter Goals Goal Patient Goal Type Associated Problems Recent Progress Patient-Stated? Author Pain Management General On track( 025 12:40 PM STAGE DIRECTOR) Yes Juhi Benson RN Note: Goal [...] on filedocumented in this encounter Care Teams Machine Brusher Relationship Specialty Start Date End Date Veronica Joseph MD [address] [place] [address] PCP - General Family Medicine 06/18/24 Mor Ramsey Medical Student 04/03/24 Case Samuel MD [address] [place] [address] 484, [address] [place] [address] Assigned Pediatric Specialist Provider 05/18/24 Juhi Benson, RN Specialty Business Office Associate Hematology & Oncology 05/29/24 documented as of this encounter
--- OUTSIDE RECORDS SUMMARY | 2024-06-30 22:32 | XMS_ITS | Encounter Summary ---
Author Organization [place] Address [address] [place] [address] Care Team Providers Care Plate Grinder Name Role Phone No Ref-Primary, Physician Primary Care Provider Mor Ramsey Unavailable Unavailable Case Samuel MD Unavailable [phone] Juhi Benson RN Unavailable Unavailable Reason for Visit * Reason Comments Chest Pain Sickle Cell Pain Crisis Encounter Details Date Type Department Care Team (Late st Contact Info) Description 06/03/2024 3:22 PM LOOM FIXER - 06/03/2024 5:30 PM LOOM FIXER Emergency [facility] Emergency Room [facility] [place] [address] Jennifer Bell MD [address] [place] [address] Sickle cell pain crisis (H) Discharge Disposition: [...] on file Legal Sex Female 8:25 AM LOOM FIXER Gender Identity Not on file Sexual Orientation Not on file documented as of this encounter Last Filed Vital Signs Vital Sign Reading Time Taken Comments Blood Pressure 117/57 06/03/2024 5:00 PM LOOM FIXER Pulse 96 06/03/2024 5:00 PM LOOM FIXER Temperature 36.3 C (97.4 F) 06/03/2024 3:23 PM LOOM FIXER Respiratory Rate 17 06/03/2024 5:00 PM LOOM FIXER Oxygen Saturation 96% 06/03/2024 5:00 PM LOOM FIXER Inhaled Oxygen Concentration - - Weight 52.2 kg (115 lb) 06/03/2024 3:23 PM LOOM FIXER Height 154.9 cm (5' 1) 06/03/2024 3:23 PM LOOM FIXER Body Mass Index 21.73 06/03/2024 3:23 PM LOOM FIXER documented in this encounter Discharge Instructions * Attachments The following attachments cannot be sent through Care Everywhere. * Sickle Cell Crisis (Panamanian) documented in this encounter Medications at Time [...] testing initially patient had labs done at [facility] ER earlier this morning as well [...] Outpatient Record: [facility] today (06/03/24) Care impacted by chronic illness:Other: Sickle Cell Disease Did you consider but not order tests?: Work up considered but not performed and documented in chart, if applicable Did you interpret images independently?: Independent interpretation of ECG and images noted in documentation, when applicable. Consultation discussion with other provider:Did you involve another provider (sap treasury consultant, , pharmacy, etc.)?: No Discharge. I [...] 10-20 mL (10 mLs Intracatheter $Given 06/03/24 9525) heparin lock flush 10 unit/mL injection 5-10 [...] her sickle cell pain. Patient presented to [facility] this morning due to sickle cell crisis and has labs, covid, flu, RSV, and chest x-ray which were all negative. She usually visits [facility] ED when her pain presents but she did not want to drive far with the [employer]. According to patient, they didn't believe her sickle cell disease, so they discharged patient with no stronger pain medications so she decided to come here. Patient is afebrile. There were no other concerns/complaints at this time. Chart Review: - Patient presented to [facility] today for her sickle cell pain crisis. 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, [facility] Functional asplenia Gallstones Hb-SS disease without [...] Rate 85 BPM Atrial Rate 85 BPM WV Interval 136 ms QRS Duration 82 ms QT 382 ms QTc 454 ms P [employer] 54 degrees R AXIS 72 degrees T [employer] 50 degrees Interpretation ECG Sinus rhythm Nonspecific T wave abnormality Abnormal ECG When compared with ECG of 27-May-2024 12:12, No significant change was found Confirmed by SEE ED PROVIDER NOTE FOR, ECG INTERPRETATION (4000), newspaper photo editor BEN PRAKASH ([id number]) on 06/03/2024 3:58:10 PM EKG: Performed at: 03-Jun-2024 15:24:43 Impression: Sinus rhythm, nonspecific T wave abnormality, abnormal ECG Rate: 85 Rhythm: Sinus [employer]: 72 WV Interval: 136 QRS Interval: 82 QTc Interval: [...] behalf by Alex Parsons, a trained medical staff specialist. This document has been checked and approved by the attending provider. Jennifer Bell MD Emergency Medicine [facility] EMERGENCY ROOM [address] [facility] [id number] Dept: [phone] Jennifer Bell MD 06/03/24 1708 FIXER * Nedra Martin RN - 06/03/2024 3:23 PM CST Pt c/o a possible sickle cell crisis with right sided chest pain that radiates to the left side. The pt did attempt to try using her home medication of diluadid of 4 mg without relief. Was just seen at [facility]. Pt has a port. Triage Assessment (Adult) [...] WDL WDL Cognitive/Neuro/Behavioral WDL Cognitive/Neuro/Behavioral WDL WDL FIXER documented in this encounter Plan of Treatment Upcoming Encounters Date Type Department Care Team (Late st Contact Info) Description 07/10/2024 11:30 AM CDT Oncology Visit [facility] [address] [place] [address] Case Samuel MD [address] [place] [address] 484, [address] [place], [place] [address] documented as of this encounter Goals Goal Patient Goal Type Associated Problems Recent Progress Patient-Stated? Author Pain Management General On track( 025 12:40 PM LOOM FIXER) Yes Juhi Benson, RN Note: Goal Statement: [...] Diagnosis Comments ECG 12-LEAD WITH MUSE JEREMIAS HORVATH,LUCIANO STAT 06/03/2024 3:24 PM LOOM FIXER documented in this encounter Results * ECG 12-LEAD WITH MUSE (LHE) (06/03/2024 3:24 PM LOOM FIXER) Systolic Blood Pressure 131 mmHg RADIOLOGY RESULTS Diastolic Blood Pressure 76 mmHg RADIOLOGY RESULTS Ventricular Rate 85 BPM RAD IOLOGY RESULTS Atrial Rate 85 BPM RADIOLOG Y RESULTS WV Interval 136 ms RADIOLOG Y RESULTS QRS Duration 82 ms RADIOLO GY RESULTS QT 382 ms RADIOLOGY RESULTS QTc 454 ms RADIOLOGY RESULTS P [employer] 54 degrees RADIOLOGY RESULTS R AXIS 72 degrees RADIOLOGY RESULTS T [employer] 50 degrees RADIOLOGY RESULTS Interpretation ECG Sinus rhythm Nonspecific T wave abnormality Abnormal ECG When compared with ECG of 27-May-2024 12:12, No significant change was found Confirmed by SEE ED PROVIDER NOTE FOR, ECG INTERPRETATION (4000), newspaper photo editor BEN PRAKASH ([id number]) on 06/03/2024 3:58:10 PM RADIOLOGY RESULTS 06/03/2024 3:24 PM LOOM FIXER 06/03/2024 3:58 PM LOOM FIXER us Deshawn Arredondo MD ECG ORDERABLES Edited [...] For 1 dose $Given 06/03/2024 4:18 PM LOOM FIXER 50 mg heparin lock flush 10 unit/mL [...] the heparin flush. $Given 06/03/2024 5:20 PM LOOM FIXER 5 mLs heparin lock flush 100 unit/mL [...] For 3 doses $Given 06/03/2024 4:48 PM LOOM FIXER 2 mg $Given 06/03/2024 3:46 PM LOOM FIXER 2 mg lactated ringers BOLUS 1,000 mL Intravenous, 1,000 mL, ONCE, at 500 mL/hr, Administer over 2 Hours, On 06/03/24 at 1530, For 1 dose $New Bag 06/03/2024 3:51 PM LOOM FIXER 1,000 mLs 500 mL/hr ondansetron (ZOFRAN) injection 8 mg 8 mg, Intravenous, ONCE, Administer over 2-5 Minutes, On 06/03/24 at 1530, For 1 dose $Given 06/03/2024 3:46 PM LOOM FIXER 8 mg sodium chloride (PF) 0.9% PF [...] each port lumen. $Given 06/03/2024 3:51 PM LOOM FIXER 10 mLs documented in this encounter Active and Recently Administered Medications Times are shown in LOOM FIXER. Scheduled Medication Order 06/01/2024 06/02/2024 06/03/2024 diphenhydrAMINE [...] documented in this encounter Care Teams Plate Grinder Relationship Specialty Start Date End Date No Ref-Primary, Physician PCP - General 03/15/24 06/17/24 Mor Ramsey Medical Student 04/03/24 Case Samuel MD [address] [place] [address] 484, [address] [place], [place] [address] Assigned Pediatric Specialist Provider 05/18/24 Juhi Benson, SOFIA Specialty Second Language Tutor Hematology & Oncology 05/29/24 documented as of this encounter
--- OUTSIDE RECORDS SUMMARY | 2024-06-30 22:32 | XMS_ITS | Encounter Summary ---
Author Organization [place] Address [address] [place] [address]. [place] [address] Care Team Providers Care Technical Publications Manager Name Role Phone No Ref-Primary, Physician Primary Care Provider Mor Ramsey Unavailable Unavailable Case Samuel MD Unavailable [phone] Juhi Benson RN Unavailable Unavailable Encounter Details [...] file Legal Sex Female 8:25 AM CLINICAL STAFF RN Gender Identity Not on file Sexual Orientation Not on file documented as of this encounter Plan of Treatment Upcoming Encounters Date Type Department Care Team (Late st Contact Info) Description 07/10/2024 11:30 AM CDT Oncology Visit [facility] [address] [place] [address] Case Samuel MD [address] [place] [address] [address], [address] [place] [address] documented as of this encounter Goals Goal Patient Goal Type Associated Problems Recent Progress Patient-Stated? Author Pain Management General On track( 025 12:40 PM CLINICAL STAFF RN) Yes Juhi Benson, RN Note: Goal [...] on filedocumented in this encounter Care Teams Technical Publications Manager Relationship Specialty Start Date End Date No Ref-Primary, Physician PCP - General 03/15/24 06/17/24 Mor Ramsey Medical Student 04/03/24 Case Samuel MD [address] [place] [address], [address] [place] [address] Assigned Pediatric Specialist Provider 05/18/24 Juhi Benson, RN Specialty Paintings Conservator Hematology & Oncology 05/29/24 documented as of this encounter
--- OUTSIDE RECORDS SUMMARY | 2024-06-30 22:32 | XMS_ITS | Encounter Summary ---
Author Organization [place] Address [address] [place] [address]. [place] [address] Care Team Providers Care It Audit Manager Name Role Phone No Ref-Primary, Physician Primary Care Provider Mor Ramsey Unavailable Unavailable Case Samuel MD Unavailable [phone] Juhi Benson RN Unavailable Unavailable Reason for Visit * Reason Comments Sickle Cell Pain Crisis Chest Pain Encounter Details Date Type Department Care Team (Late st Contact Info) Description 06/05/2024 11:41 AM RATCHET SETTER - 06/05/2024 3:28 PM [facility] Emergency Room [address] [place] [address] Stiven Madsen MD [address], [place] [address] Star Gifford MD [address] [place], [place] [id number] Sickle cell pain crisis (H) Discharge Disposition: [...] on file Legal Sex Female 8:25 AM RATCHET SETTER Gender Identity Not on file Sexual Orientation Not on file documented as of this encounter Last Filed Vital Signs Vital Sign Reading Time Taken Comments Blood Pressure 114/67 06/05/2024 3:00 PM RATCHET SETTER Pulse 74 06/05/2024 3:00 PM RATCHET SETTER Temperature 36.8 C (98.3 F) 06/05/2024 11:37 AM RATCHET SETTER Respiratory Rate 18 06/05/2024 11:37 AM RATCHET SETTER Oxygen Saturation 99% 06/05/2024 3:00 PM RATCHET SETTER Inhaled Oxygen Concentration - - Weight 52.2 kg (115 lb) 06/05/2024 11:37 AM RATCHET SETTER Height 154.9 cm (5' 1) 06/05/2024 11:37 AM RATCHET SETTER Body Mass Index 21.73 06/05/2024 11:37 AM RATCHET SETTER documented in this encounter Discharge Instructions * Discharge Instructions* Stiven Madsen MD - 06/05/2024 12:59 PM RATCHET SETTER You were seen in the emergency department for a pain crisis. You were given medications and IV fluids. Please continue to follow-up with your established assistant accounting manager after this ED visit. HET SETTER documented in this encounter Medications at Time [...] with other provider:Did you involve another provider (home service consultant, , pharmacy, etc.)?: No Discharge. No recommendations on prescription strength medication(s). See documentation for any additional details. MIPS: Not Applicable MEDICATIONS GIVEN IN THE EMERGENCY: Medications lactated ringers infusion (0 mLs Intravenous Stopped 06/05/24 2103) ondansetron (ZOFRAN) injection 8 mg (8 mg Intravenous $Given 06/05/24 1230) diphenhydrAMINE (BENADRYL) capsule 25 mg (25 mg Oral $Given 06/05/24 1240) NEW PRESCRIPTIONS STARTED AT TODAY'S ER VISIT Discharge Medication List as of 06/05/2024 3:28 PM HPI Patient information was obtained from: Patient Use of Hog Worker: N/A Gianna Hernández is a 29 year [...] chart review, patient was seen at [facility] ED for sickle cell pain [...] Currently Drug use: Never Social History Narrative Uxvb-[id number]-evkv mom. Recently moved to [place] from [place], [place]. She is 1 of 9 [...] Received from [facility] Social Connections Do you often feel [...] abnormality. Rate: 88 BPM Rhythm: Sinus rhythm Madison: 81 CA Interval: 148 ms QRS Interval: 82 ms [...] my direction. Stiven Madsen M.D. Emergency Medicine [facility] EMERGENCY ROOM [address] [facility] [phone] Dept: [phone] Stiven Madsen MD 06/05/24 1433 Stiven Madsen MD 06/05/24 1938 HET SETTER HET SETTER * Jose Ramon Sims, RN - 06/05/2024 11:39 AM CST Pt presents [...] WDL WDL Cognitive/Neuro/Behavioral WDL Cognitive/Neuro/Behavioral WDL WDL HET SETTER documented in this encounter Plan of Treatment Upcoming Encounters Date Type Department Care Team (Late st Contact Info) Description 07/10/2024 11:30 AM CDT Oncology Visit [facility] [address] [place] [address] Case Samuel MD [address] [place] [address], [address] [place], [place] [address] documented as of this encounter Goals Goal Patient Goal Type Associated Problems Recent Progress Patient-Stated? Author Pain Management General On track( 025 12:40 PM RATCHET SETTER) Yes Juhi Benson, RN Note: Goal Statement: [...] Associated Diagnosis Comments ECG 12-LEAD WITH MUSE ALEXANDRU,JEREMIAS,SHEYLA STAT 06/05/2024 11:40 AM RATCHET SETTER documented in this encounter Results * ECG 12-LEAD WITH MUSE (LHE) (06/05/2024 11:40 AM RATCHET SETTER) Systolic Blood Pressure mmHg RADIOLOGY RESULTS Diastolic Blood Pressure mmHg RADIOLOGY RESULTS Ventricular Rate 88 BPM RAD IOLOGY RESULTS Atrial Rate 88 BPM RADIOLOG Y RESULTS CA Interval 148 ms RADIOLOG Y RESULTS QRS Duration 82 ms RADIOLO GY RESULTS QT 388 ms RADIOLOGY RESULTS QTc 469 ms RADIOLOGY RESULTS P Madison 43 degrees RADIOLOGY RESULTS R AXIS 81 degrees RADIOLOGY RESULTS T Madison 57 degrees RADIOLOGY RESULTS Interpretation ECG Sinus rhythm Nonspecific T wave abnormality Prolonged QT Abnormal ECG When compared with ECG of 03-Jun-2024 15:24, No significant change was found Confirmed by SEE ED PROVIDER NOTE FOR, ECG INTERPRETATION (4000), graphic editor Ariadna Shabazz ([id number]) on 06/05/2024 12:02:47 PM RADIOLOGY RESULTS 06/05/2024 11:4 0 AM RATCHET SETTER 06/05/2024 12:02 PM RATCHET SETTER Stiven Madsen MD ECG ORDERABLES Edited Result [...] on Wed06/05/24 at 1154, For 1 dose $Given 06/05/2024 12:40 PM RATCHET SETTER 25 mg heparin lock flush 10 unit/mL [...] for each lumen $Given 06/05/2024 3:20 PM RATCHET SETTER 5 mLs HYDROmorphone (DILAUDID) injection 2 mg 2 mg, Intravenous, EVERY 1 HOUR PRN, moderate pain, severe pain, Starting on Wed06/05/24 at 1153 $Given 06/05/2024 2:56 PM RATCHET SETTER 2 mg $Given 06/05/2024 1:54 PM RATCHET SETTER 2 mg $Given 06/05/2024 12:40 PM RATCHET SETTER 2 mg lactated ringers infusion at 500 mL/hr, Intravenous, CONTINUOUS, Starting on Wed06/05/24 at 1200, Until Wed06/05/24 at 1359 $New Bag 06/05/2024 12:39 PM RATCHET SETTER 500 mL/hr ondansetron (ZOFRAN) injection 8 mg 8 mg, Intravenous, ONCE, Administer over 2-5 Minutes, On Wed06/05/24 at 1200, For 1 dose $Given 06/05/2024 12:39 PM RATCHET SETTER 8 mg documented in this encounter Active and Recently Administered Medications Times are shown in RATCHET SETTER. Scheduled Medication Order 06/03/2024 06/04/2024 06/05/2024 ondansetron [...] RN) documented in this encounter Care Teams It Audit Manager Relationship Specialty Start Date End Date No Ref-Primary, Physician PCP - General 03/15/24 06/17/24 Mor Ramsey Medical Student 04/03/24 Case Samuel MD [address] [place] [address] [address], [address] [place] [address] Assigned Pediatric Specialist Provider 05/18/24 Juhi Benson, RN Specialty Deck Mate Hematology & Oncology 05/29/24 documented as of this encounter
--- OUTSIDE RECORDS SUMMARY | 2024-06-30 22:32 | XMS_ITS | Encounter Summary ---
Author Organization [place] Address [address] [place] [address]. [place] [address] Care Team Providers Care Bi Technical Lead Name Role Phone No Ref-Primary, Physician Primary Care Provider Mor Ramsey Unavailable Unavailable Case Samuel MD Unavailable [phone] Juhi Benson RN Unavailable Unavailable Encounter Details [...] on file Legal Sex Female 8:25 AM X RAY DEVELOPING MACHINE OPERATOR Gender Identity Not on file Sexual Orientation Not on file documented as of this encounter Plan of Treatment Upcoming Encounters Date Type Department Care Team (Late st Contact Info) Description 07/10/2024 11:30 AM CDT Oncology Visit [facility] [address] [place] [address] Case Samuel MD [address] [place] [address], [address] [place] [address] documented as of this encounter Goals Goal Patient Goal Type Associated Problems Recent Progress Patient-Stated? Author Pain Management General On track( 025 12:40 PM X RAY DEVELOPING MACHINE OPERATOR) Yes Juhi Benson, RN Note: [...] on filedocumented in this encounter Care Teams Bi Technical Lead Relationship Specialty Start Date End Date No Ref-Primary, Physician PCP - General 03/15/24 06/17/24 Mor Ramsey Medical Student 04/03/24 Case Samuel MD [address] [place] [address], [address] [place] [address] Assigned Pediatric Specialist Provider 05/18/24 Juhi Benson, RN Specialty Squad Leader Hematology & Oncology 05/29/24 documented as of this encounter
--- OUTSIDE RECORDS SUMMARY | 2024-06-30 22:32 | XMS_ITS | Encounter Summary ---
Author Organization [place] Address [address] [place] [address] Care Team Providers Care Driller'S Assistant Name Role Phone No Ref-Primary, Physician Primary Care Provider Mor Ramsey Unavailable Unavailable Case Samuel MD Unavailable [phone] Juhi Benson RN Unavailable Unavailable Reason for Visit * Reason Comments Blood Transfusion 1 unit blood Infusion Fluids and pain medi cations Encounter Details Date Type Department Care Team (Late st Contact Info) Description 05/30/2024 8:00 AM APPLICATION COUNSELOR Infusion Therapy Visit [facility] [address] [place] [address] Case Samuel MD [address] [place] [address], [address] [place], [place] [phone] 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); [...] on file Legal Sex Female 8:25 AM APPLICATION COUNSELOR Gender Identity Not on file Sexual Orientation Not on file documented as of this encounter Last Filed Vital Signs Vital Sign Reading Time Taken Comments Blood Pressure 109/72 05/30/2024 11:15 AM APPLICATION COUNSELOR Pulse 77 05/30/2024 11:15 AM APPLICATION COUNSELOR Temperature 36.5 C (97.7 F) 05/30/2024 10:21 AM APPLICATION COUNSELOR Respiratory Rate 16 05/30/2024 10:21 AM APPLICATION COUNSELOR Oxygen Saturation 95% 05/30/2024 10:21 AM APPLICATION COUNSELOR Inhaled Oxygen Concentration - - Weight - - Height - - Body Mass Index - - documented in this encounter Patient Instructions * Patient Instructions* Arlene Moses RN - 05/30/2024 8:00 AM APPLICATION COUNSELOR Dear Gianna Hernández Thank you for choosing [facility] ([facility]) for your transfusion. The following information is a summary of our appointment as well as important reminders. If you have any questions on your upcoming Specialty Infusion appointments, please call scheduling at [phone]. It was a pleasure taking care of you today. Sincerely, [facility] [address] [place] [id number] ICATION COUNSELOR * Attachments The following attachments cannot be sent through Care Everywhere. * Blood Transfusions: General Info (Rwandan) documented in this encounter Progress Notes * Arlene Moses RN - 05/30/2024 8:00 AM CST Blood Product Transfusion Nursing Note: Gianna Hernández presents today to [facility] for a blood transfusion. During today's [facility] appointment orders from Dr Samuel were completed. Progress note: ID verified by name and . Assessment completed. Vitals were stable throughout time in [facility]. Verbal education given to patient/field support representative regarding transfusion and possible side effects. Patient/field support representative verbalized understanding. Charge Master Coordinator present during visit today: Not Applicable. All [...] Discharge instructions were reviewed with patient Yes Patient/field support representative verbalized understanding of discharge instructions and [...] By Arlene Moses RN Alyssa Sakhitab-Kerestes, RN ICATION COUNSELOR documented in this encounter Plan of Treatment Upcoming Encounters Date Type Department Care Team (Late st Contact Info) Description 07/10/2024 11:30 AM CDT Oncology Visit [facility] [address] [place] [address] Case Samuel MD [address] [place] [address], [address] [place] [address] documented as of this encounter Goals Goal Patient Goal Type Associated Problems Recent Progress Patient-Stated? 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) History of transfusion PREPARE RED BLOOD CELLS (UNIT) Routine 05/29/2024 5:12 PM APPLICATION COUNSELOR documented in this encounter Results * Transfuse red blood cells (unit), Sickle Cell (Hgb S) Negative (05/30/2024 10:24 AM APPLICATION COUNSELOR) Case Samuel MD BLOOD TRANSFUSION ORDERAB LES Final Result * Transfuse red blood cells (unit), 1 Units, Sickle Cell (Hgb S) Negative (05/30/2024 10:24 AM APPLICATION COUNSELOR) Case Samuel MD BLOOD TRANSFUSION ORDERAB LES Final Result * Prepare red blood cells (unit) (05/29/2024 5:12 PM APPLICATION COUNSELOR) Blood Component Type Red Blood Cells [facility] BLOOD BANK Product Code C5532F84 [facility] BLOO D BANK Unit Status Transfused [facility] BLOO D BANK Unit Number [id number] UU B LOOD BANK CROSSMATCH COMPATIBLE UU BLOOD BANK CODING SYSTEM [id number] UU BLO OD BANK ISSUE DATE AND TIME [id number] [facility] BLOOD BANK UNIT ABO/RH A- [facility] BLOOD BANK UNIT TYPE ISBT 0600 U[facility] BL OOD BANK 05/29/2024 5:12 PM APPLICATION COUNSELOR Case Samuel MD BLOOD BANK PRODUCT ORDERA BLES Final Result BLOOD BANK [address] [place] [address], [facility] documented in this encounter [...] (H),History of transfusion $Given 05/30/2024 11:18 AM APPLICATION COUNSELOR 5 mLs HYDROmorphone (DILAUDID) injection 2 mg 2 mg, Intravenous, EVERY 1 HOUR PRN, severe pain, moderate pain, Starting on Wed05/30/24 at 0833, For 3 dosesIndications:Sickle cell pain crisis (H) $Given 05/30/2024 10:56 AM APPLICATION COUNSELOR 2 mg $Given 05/30/2024 9:44 AM APPLICATION COUNSELOR 2 mg $Given 05/30/2024 8:39 AM APPLICATION COUNSELOR 2 mg lactated ringers BOLUS 1,000 mL Intravenous, 1,000 mL, ONCE, at 500 mL/hr, Administer over 2 Hours, On Wed05/30/24 at 0845, For 1 doseIndications:Sickle cell pain crisis (H) $New Bag 05/30/2024 10:24 AM APPLICATION COUNSELOR 500 mLs 500 mL/hr sodium chloride (PF) [...] (H),History of transfusion $Given 05/30/2024 11:18 AM APPLICATION COUNSELOR 20 mLs $Given 05/30/2024 10:20 AM APPLICATION COUNSELOR 20 mLs documented in this encounter Care Teams Driller'S Assistant Relationship Specialty Start Date End Date No Ref-Primary, Physician PCP - General 03/15/24 06/17/24 Mor Ramsey Medical Student 04/03/24 Case Samuel MD [address] [place] [address], [address] [place] [address] Assigned Pediatric Specialist Provider 05/18/24 Juhi Benson, RN Specialty Wine Consultant Hematology & Oncology 05/29/24 documented as of this encounter
--- OUTSIDE RECORDS SUMMARY | 2024-06-30 22:32 | XMS_ITS | Encounter Summary ---
Author Organization [facility] Address [address] [place] [address]. [place] [address] Care Team Providers Care Pattern Attendant Name Role Phone RoxyElvirac Unavailable Unavailable Case Samuel MD Unavailable [phone] Juhi Benson RN Unavailable Unavailable Veronica Joseph MD Primary Care Provider [phone] Reason for Visit * Reason Comments Sickle Cell Pain Crisis * Auth/Cert Specialty Diagnoses / Procedures Referred By Shahid pendleton Referred To Contact EMERGENCY MEDICINE Diagnoses Acute pulmonary embolism without acute cor pulmonale, unspecified pulmonary embolism type (H) Sickle cell pain crisis (H) [facility] Emergency Department [address] [place] [address] Phone: tel: Referral ID Status Reason Start Date Expiration Date Visits Re quested Visits Authorized [id number] 1 1 Encounter Details Date Type Department Care Team (Latest Contact Info) Description 06/26/2024 1:51 PM MATTRESS FILLER - 06/29/2024 11:11 AM [facility] Hospital Encounter [facility] Emergency Department [address] [place] [phone] Jayden Adhikari MD [address] [place] [address] Esdras Markham MD [address] [place] [address] Alex Gillespie MD [address] [place] [id number] Acute pulmonary embolism without acute cor pulmonale, unspecified pulmonary embolism type (H); Sickle cell pain crisis (H) Discharge Disposition: [...] on file Legal Sex Female 8:25 AM MATTRESS FILLER Gender Identity Not on file Sexual Orientation Not on file documented as of this encounter Last Filed Vital Signs Vital Sign Reading Time Taken Comments Blood Pressure 97/51 06/29/2024 9:46 AM MATTRESS FILLER Pulse 62 06/29/2024 9:46 AM MATTRESS FILLER Temperature 36.8 C (98.2 F) 06/29/2024 9:46 AM MATTRESS FILLER Respiratory Rate 18 06/29/2024 9:46 AM MATTRESS FILLER Oxygen Saturation 95% 06/29/2024 9:46 AM MATTRESS FILLER Inhaled Oxygen Concentration - - Weight - - Height - - Body Mass Index - - documented in this encounter Discharge Summaries * Rl Elias MD - 06/29/2024 10:11 AM CST [facility] Discharge Summary - Medicine & Pediatrics Date of Admission: 06/26/2024 Date of Discharge: 06/29/2024 Discharging Provider: Dr Alex Gillespie Discharge Service: Medicine Service, RICARDO TEAM 1 Discharge Diagnoses #Bilateral Pulmonary emboli #Sickle cell acute pain crisis #sickle cell anemia, SS genotype Clinically Significant Risk Factors Follow-ups Needed After Discharge Follow-up Appointments Hospital Follow-up with Existing Primary Care Provider (PCP) Please see details below Schedule Primary Care visit within: 7 Days Unresulted Labs Ordered in the Past 30 Days of this Admission Date and Time Order Name Status Description 06/26/2024 4:34 PM Blood Culture Peripheral Blood Preliminary 06/26/2024 4:34 PM Blood Culture Peripheral Blood Preliminary These results will be followed up by PCP. Discharge Disposition Discharged to home Condition at discharge: Stable Hospital Course Lew Hernández is a 29 year old female admitted on 06/26/2024. She has a PMHx of sickle cell disease (c/b multiple episodes of sickle cell pain crisis, ACS, functional asplenia, and avascular necrosis of the hip), PE, and anxiety who has had multiple recent admissions and ED visits for pain crises. She presented to the ED with continued acute vaso-inclusive pain and chest pain, and was found to have bilateral pulmonary emboli, now started on apixaban. #Bilateral pulmonary emboli Patient admitted with sharp chest pain localized on the left side, exacerbated by deep breathing. Did not require any supplemental oxygen. D-Dimer is elevated to 0.[address] Chest shows bilateral pulmonary emboli, in addition to bilateral pulmonary nodules. Patient with history of pulmonary emboli in the past, but has not been on consistent anticoagulation since treatment at that time. Per Heme, c ould represent port associated thrombosis with embolization as she just had new ports placed. Echocardiogram without signs of right heart strain, bilateral lower extremity ultrasound without signs ofDVT. Further digging into patient's insurance coverage noted that she is covered for her apixaban with no co-pay. 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 She was hospitalized again from 06/16/24-06/20/24 with ongoing uncontrolled vaso-occlusive pain in her back and chest tightness. Aditionally, she has presented to the ED 3 times in the past week before returning on night of admission with newfound bilateral pulmonary emboli. CXR was stable with no new findings. Blood cultures NGTD, urinalysis without signs of infection. COVID/influenza/RSV swab negative. Hemoglobin stable through admission. - Continue FLYING INSTRUCTOR hydroxyurea 1000mg BID - Continue FLYING INSTRUCTOR folic acid 1mg daily - Continue topical diclofenac, lidocaine, icy hot PRN - Hematology updated for follow up appointment in outpatient #Leukocytosis, improving Noted to have improving leukocytosis this AM. AT 15.3 (down from 17.8). Infectious workup remains negative. Blood cultures NGTD, urinalysis without signs of infection. CXR without any changes. COVID/influenza/RSV swab negative. She continues to deny any symptoms. - CBC upon follow up with PCP or Hematology (whichever comes first) #Anxiety - Continue FLYING INSTRUCTOR fluoxetine 10 mg daily Consultations This Hospital Stay PHARMACY IP CONSULT HEMATOLOGY ADULT IP CONSULT CARE MANAGEMENT / SOCIAL WORK IP CONSULT PHARMACY LIAISON FOR MEDICATION COVERAGE CONSULT PHARMACY LIAISON FOR MEDICATION COVERAGE CONSULT SOCIAL WORK IP CONSULT PHARMACY LIAISON FOR MEDICATION COVERAGE CONSULT Code Status Full Code The patient was discussed with Dr. Gillespie. MD Ricardo LANGLEY [address] [place] [address] EMERGENCY DEPARTMENT [address] [facility] [phone] Physical Exam Vital Signs: Temp: 98.2 ??F (36.8 ??C) Temp src: Oral BP: 97/51 Pulse: 62 Resp: 18 SpO2: 95 % O2 Device: None (Room air) Weight: 0 lbs 0 oz Constitutional: awake, alert, NAD, resting comfortably in bed Respiratory: good air exchange, clear to auscultation bilaterally, no crackles or wheezing Cardiovascular: RRR, no murmur noted Skin: no bruising or bleeding Neurologic: Awake, alert, oriented to name, place and time. Cranial nerves II- XII are grossly intact. Nonfocal neuro exam. Primary Care Physician Veronica Joseph Discharge Orders Reason for your hospital stay You were hospitalized for concerns of acute sickle cell crisis pain, but we also found that you hadbilateral pulmonary emboli. You were started on a heparin gtt, but ultimately transferred to apixaban. You will take apixaban 10 mg twice a day to complete a 7 day course (through 07/05), and then start taking apixaban 5 mg twice a day. Current plan is a 3 month course, but you will follow up with He matology to determine the exact duration of your course. I have messaged Hematology to ensure that they set up an appointment with you. Additionally, we didmore digging regarding your insurance coverage and you have an expected $0 copay for the apixaban. As always, please be re-evaluated in the emergency department if you have concerns for worsening chest pain, nausea/vomiting, shortness of breath, fevers/chills, or any other worsening pain. Activity Your activity upon discharge: activity as tolerated Diet Follow this diet upon discharge: Current Diet:Orders Placed This Encounter Regular Diet Adult Hospital Follow-up with Existing Primary Care Provider (PCP) Please see details below Significant Results and Procedures Most Recent 3 CBC's: Recent Labs Lab Test 06/29/24 0605 06/28/24 0606 06/27/24 0557 WBC 12.3* 15.3* 17.8* 17.8* HGB 8.5* 8.2* 8.5* 8.5* MCV 98 96 100 100 PLT 438 401 469* 469* Most Recent 3 BMP's: Recent Labs Lab Test 06/29/24 0604 06/28/24 0606 06/27/24 0557 NA 132* 134* 136 POTASSIUM 4.6 4.6 4.2 CHLORIDE 102 105 104 CO2 21* 22 23 BUN 14.3 11.8 8.0 CR 0.70 0.70 0.74 ANIONGAP 9 7 9 EVELIN 8.9 8.9 8.7* GLC 98 88 90 , Results for orders placed or performed during the hospital encounter of 06/26/24 Chest XR, PA & LAT Narrative EXAM: XR CHEST 2 VIEWS 06/26/2024 3:13 PM HISTORY: chest pain COMPARISON: History of 06/25/2024 FINDINGS: Stable bilateral port catheters with tips in the mid/lower SVC. Stable mildly low lung volumes. Stable cardiac silhouette. Trachea is midline. Unchanged appearance of patchy right middle lobe infiltrate versus atelectasis. No new or worsening opacity. No significant pleural effusion. No appreciable pneumothorax. Impression IMPRESSION: 1. Stable appearance of right middle lobe opacities which may represent infiltrate versus atelectasis. 2. No new or worsening cardiopulmonary abnormality. I have personally reviewed the examination and initial interpretation and I agree with the findings. EVY FUENTES MD CT Chest Pulmonary Embolism w Contrast Narrative CT chest pulmonary angiogram with contrast INDICATION: Chest pain and elevated dimer CONTRAST: 55 mL intravenous [id number] COMPARISON: CT chest 05/23/[address] FINDINGS: Pancreas appears unremarkable. No obvious abnormal breast tissues. Left-sided approach port catheter tip near the IVC/right atrial junction. Right sided approach port catheter tip in the right atrium. Heart size normal. Thoracic aortic caliber normal. Pulmonary artery approximately 3.0 cm in caliber borderline upper normal. Anterior mediastinal soft tissue density noted which may represent residual thymus similar to previous. No definitive isolated mass. Heart is upper normal size. No pleural or pericardial effusion. There is some reflux of contrast into the IVC as well as the middle and left hepatic veins. Calcified gallstones in the right upper abdomen within the gallbladder. No adrenal nodule. A there is a hypodense filling defect in the lateral segmental branch of the right lower lobe pulmonary artery (10/145), there is contrast beyond this area and therefore this is nonocclusive. A hypodense filling defect in right lower lobe posterior basilar segmental branches well (10/153) and again contrast gets beyond this area. Other medial basilar segmental branch emboli noted near the end of the visible artery. This is indeterminate whether this is actually occlusive or not. No saddle central embolus. Emboli also noted in left upper lobe branch vasculature (10/115). There is a paradoxical septal bowing the left ventricle. The right ventricle is not enlarged. The reflux of contrast into the hepatic veins and IVC may be related to timing as there is dense aortic filling as well. However, despite the presence of the emboli, there is no definitive evidence of right heart strain. Bone detail shows some concavity of endplates vertebrae T10 and satellite T8 and at T6 similar to recent previous. This patient has reported sickle cell disease which likely accounts for the endplate appearance a microvascular infarctions. 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 Findings mark shows multiple pulmonary nodules bilaterally mostly in the lower lobes but also in both upper lobes these appear similar in size and number and overall distribution not surprising given the very short interval. There are some punctate cavitations in some of the larger nodules. These may be potentially septic emboli comment recommend follow-up to clearing the renal neoplasm is probably less likely revealing the electronic medical record from the emergency room today. Also, the patient reportedly recently had diagnosis of endocarditis within the last 2 years no significant changes. No developing consolidations in the short interval. Impression IMPRESSION: Bilateral pulmonary emboli and bilateral pulmonary nodules, cannot exclude septic emboli the lungs given 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 No definitive evidence of right heart strain. Some bony changes again noted of sickle cell in the thoracic spine and humeral heads typical of microvascular insults related to sickle cell. EVY FUENTES MD US Lower Extremity Venous Duplex Bilateral Narrative EXAMINATION: DOPPLER VENOUS ULTRASOUND OF BILATERAL LOWER EXTREMITIES, 06/27/2024 11:21 AM COMPARISON: None. HISTORY: Evaluate for any DVTs. TECHNIQUE: Peace-scale evaluation with compression, spectral flow and color Doppler assessment of the deep venous system of both legs from groin to knee, and then at the ankles. FINDINGS: In both lower extremities, the common femoral, femoral, popliteal and posterior tibial veins demonstrate normal compressibility and blood flow. Impression IMPRESSION: No evidence of deep venous thrombosis in either lower extremity. I have personally reviewed the examination and initial interpretation and I agree with the findings. NINOSKA QUAN MD Echocardiogram Complete Value LVEF 55-60% Narrative [id number]^BRITTANEY^JERMAINE [facility] [address] [place] [id number] Name: LEW HERNÁNDEZ : 1995 Study Date: 06/27/2024 01:58 PM Age: 29 yrs Gender: Female Patient Location: [facility] Reason For Study: Pulmonary Emboli Ordering Physician: JERMAINE QUISPE Performed By: Maggy Franks RDCS BSA: 1.5 m2 Height: 61 in Weight: 112 lb BP: 120/83 mmHg Procedure Echocardiogram with two-dimensional, color and spectral Doppler. Interpretation Summary Global and regional left ventricular function is normal with an EF of 55-60%. The right ventricle is normal size. Global right ventricular function is normal. Mild tricuspid insufficiency is present. Pulmonary artery systolic pressure cannot be assessed. The inferior vena cava was normal in size with preserved respiratory variability. No significant valvular abnormalities present. Previous study not available for comparison. Left Ventricle Left ventricular size is normal. Left ventricular wall thickness is normal. Global and regional left ventricular function is normal with an EF of 55-60%. Left ventricular diastolic function is normal. Right Ventricle The right ventricle is normal size. Global right ventricular function is normal. Atria Both atria appear normal. Mitral Valve The mitral valve is normal. Trace mitral insufficiency is present. Aortic Valve On Doppler interrogation, there is no significant stenosis or regurgitation. The aortic valve is tricuspid. Tricuspid Valve Mild tricuspid insufficiency is present. The peak velocity of the tricuspid regurgitant jet is not obtainable. Pulmonary artery systolic pressure cannot be assessed. Pulmonic Valve The pulmonic valve is normal. Vessels The aorta root is normal. The inferior vena cava was normal in size with preserved respiratory variability. Pericardium No pericardial effusion is present. Miscellaneous No significant valvular abnormalities present. Compared to Previous Study Previous study not available for comparison. MMode/2D Measurements & Calculations IVSd: 1.00 cm LVIDd: 4.8 cm LVIDs: 3.1 cm LVPWd: 0.99 cm FS: 35.8 % LV mass(C)d: 166.8 grams LV mass(C)dI: 112.9 grams/m2 Ao root diam: 2.7 cm asc Aorta Diam: 2.6 cm LVOT diam: 2.1 cm LVOT area: 3.3 cm2 Ao root diam index Ht(cm/m): 1.7 Ao root diam index BSA (cm/m2): 1.8 Asc Ao diam index BSA (cm/m2): 1.7 Asc Ao diam index Ht(cm/m): 1.6 LA Volume (BP): 44.5 ml LA Volume Index (BP): 30.1 ml/m2 RV Base: 3.6 cm RWT: 0.41 TAPSE: 2.3 cm Doppler Measurements & Calculations MV E max lj: 90.1 cm/sec MV A max lj: 50.3 cm/sec MV E/A: 1.8 MV dec slope: 568.9 cm/sec2 MV dec time: 0.16 sec PA acc time: 0.14 sec E/E' av.1 Lateral E/e': 5.6 Medial E/e': 6.7 RV S Lj: 15.7 cm/sec Measurements from QLAB EDV (RV HM): 121.9 ml EF (RV HM): 59.4 % ESV (RV HM): 49.5 ml RV 4C LS (): -22.1 % RV Free Wall LS (): -23.7 % Report approved by: SALVADOR PEREA MD on 06/27/2024 02:51 PM Discharge Medications Current Discharge Medication List START taking these medications Details apixaban ANTICOAGULANT (ELIQUIS) 5 MG tablet Take 2 tablets (10 mg) by mouth 2 times daily for 6 days, THEN 1 tablet (5 mg) 2 times daily. 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 have your family member watch video on how to use/read information sheet). every 2-3 minutes until assistance arrives Qty: 2 each, Refills: 0 Allergies Allergies Allergen Reactions Banana Anaphylaxis, Hives [...] Hives Cashew Nut Oil Hives Cosigned by Alex Gillespie MD at 06/29/2024 12:30 PM MATTRESS FILLER RESS FILLER RESS FILLER Associated attestation - Alex Gillespie MD - 06/29/2024 12:30 PM MATTRESS FILLER Physician Attestation I saw and evaluated this patient prior to discharge. I discussed the patient with the resident/fellow and agree with plan of care as documented in the note. I personally reviewed vital signs, medications, labs, and imaging. I personally spent 25 minutes on discharge activities. Alex Gillespie MD Date of Service (when I saw the patient): 06/29/24 documented in this encounter Medications at Time of Discharge apixaban ANTICOAGULANT (ELIQUIS) 5 MG tabletIndications: DVT-PE Treatment Take 2 tablets (10 mg) by mouth 2 times daily for 6 days, THEN 1 tablet (5 mg) 2 times daily. 178 tablet 06/29/2024 diphenhydrAMINE (BENADRYL) 25 MG tablet Take 1-2 tablets by mouth every 6 hours as needed for itching. EPINEPHrine (ANY BX GENERIC EQUIV) 0.3 MG/0.3ML injection 2-pack Inject 0.3 mg into the muscle as needed for anaphylaxis. May repeat one time in 5-15 minutes if response to initial dose is inadequate. FLUoxetine (PROZAC) 10 MG capsuleIndications :Severe episode of recurrent major depressive disorder, without psychotic features (H) Take 1 capsule (10 mg) by mouth daily. 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 30 tablet 05/01/2024 naloxone (NARCAN) 4 MG/0.1ML nasal spray [place] 1 spray (4 mg) into one nostril alternating nostrils as needed for opioid reversal (for opiate overdose if not breathing and unconscious. have your family member watch video on how to use/read information sheet). every 2-3 minutes until assistance arrives 2 each 06/06/2024 documented as of this encounter Progress Notes * Kathy Mccoy RN - 06/29/2024 2:10 AM CST Vitals: BP 103/63 (BP Location: Right arm, Cuff Size: Adult Regular) Pulse 89 Temp 98.4 ??F (36.9 ??C) (Oral) Resp 18 SpO2 98% BMI= There is no height or weight on file to calculate BMI. Neuro: A&Ox4. Cardiac: No Tele, T Max 98.7, VSS Respiratory: Sating > 92% on RA. GI/: No Bm This shift, Voiding adequately Diet/appetite: Regular diet. Eating well. Activity: Independent Pain: Pain Managed with Scheduled Dilaudid Q 2hr Skin: No new deficits noted. LDA's: Left chest port SL Plan: Continue with POC. Notify primary team with changes. RESS FILLER * Rl Elias MD - 06/28/2024 10:47 AM CST [facility] Progress Note - Medicine Service, [facility]3] TEAM 1 Date of Admission: 06/26/2024 Assessment & Plan Lew Hernández is a 29 year old female admitted on 06/26/2024. She has a PMHx of sickle cell disease (c/b multiple episodes of sickle cell pain crisis, ACS, functional asplenia, and avascular necrosis of the hip), PE, and anxiety who has had multiple recent admissions and ED visits for pain crises. She presented to the ED last night with continued acute vaso-inclusive pain and chest pain, and was found to have bilateral pulmonary emboli, now started on apixaban. Updates Today - discontinued heparin gtt - started apixaban after discussion with Hematology for coverage - SW consult to help start discussing changes to insurance coverage to cover donis of apixaban - bilateral lower extremity ultrasound without any signs of DVT - echocardiogram with no signs of right heart strain or other abnormalities - Hematology to reach out to outpatient clinic to work on outpatient coverage while utilizing 30 day free trial supply #Bilateral pulmonary emboli Patient has sharp chest pain localized to the left side that is exacerbated by deep breathing. She noted shortness of breath upon admission, but improvement today. Has not required any supplemental oxygen. D-Dimer is elevated to 0.[address] Chest shows bilateral pulmonary emboli, in addition to bilateral pulmonary nodules. No signs of right heart strain from CT chest, but echocardiogram pending. Of note, patient with history of pulmonary emboli in the past, but has not been on consistent anticoagulation since treatment at that time. Per Heme, could represent port associated thrombosis with embolization as she just had new ports placed. Pharm liaison consult sent for donis of apixaban, whichnoted it was not covered and out of pocket cost would be $700. Discussed with Hematology who noted that they would want her to be on apixaban with her sickle cell and that since she does have a free 30 day supply trial, can get her started on that and her outpatient clinic will help with getting insurance coverage for the DOAC. Current plan is 3 months of anticoagulation. Echocardiogram without signs of right heart strain, bilateral lower extremity ultrasound without signs of DVT. 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 She was hospitalized again from 06/16/24-06/20/24 with ongoing uncontrolled vaso-occlusive pain in her back and chest tightness. Aditionally, she has presented to the ED 3 times in the past week before returning last night with continued concerns for pain. Per above, she has newfound bilateral pulmonary emboli. She does not endorse being in worse pain than previously and so, per the patient, we have referred to her care coordination plan and previous hospitalizations to help optimize her regimen and will adjust accordingly to manage her current pain crisis. Of note, her CXR is stable with no new findings. Blood cultures NGTD, urinalysis without signs of infection. COVID/influenza/RSV swab pending. Hemoglobin noted to be stable at this time at 8.5. - Hematology consulted, appreciate any further recs - dilaudid 2 mg Q2H scheduled - zofran, benadryl, senna PRN for supportive measures - Continue FLYING INSTRUCTOR hydroxyurea 1000mg BID - Continue FLYING INSTRUCTOR folic acid 1mg daily - Monitoring CBC w/diff, LDH, reticulocyte count, and LDH daily - Type & screened - Continue topical diclofenac, lidocaine, icy hot PRN #Leukocytosis, improving Noted to have improving leukocytosis this AM. AT 15.3 (down from 17.8). Infectious workup remains negative. Blood cultures NGTD, urinalysis without signs of infection. CXR without any changes. COVID/influenza/RSV swab negative. She continues to deny any symptoms. - CTM #Insomnia - continue melatonin 3 mg PRN #Anxiety - Continue FLYING INSTRUCTOR fluoxetine 10 mg daily - Benadryl PRN per Pain Plan - Zofran PRN per Pain Plan Diet: Regular Diet Adult DVT Prophylaxis: DOAC Santiago Catheter: Not present Fluids: None Lines: PRESENT Port a Cath 05/25/24 Single Lumen Left Chest wall-Site Assessment: WDL Cardiac Monitoring: None Code Status: Full Code Clinically Significant Risk Factors # Hyponatremia: Lowest Na = 134 mmol/L in last 2 days, will monitor as appropriate # Hyperchloremia: Highest Cl = 109 mmol/L in last 2 days, will monitor as appropriate # Financial/Environmental Concerns: Social Drivers of Health Disposition Plan Medically Ready for Discharge: Anticipated Tomorrow The patient's care was discussed with the Attending Physician, Dr. Gillespie . RL ELIAS MD Medicine Service, [facility])[3] TEAM 1 [facility] Securely message with [employer] (more info) Text page via [facility] Paging/Directory See signed in provider for up to date coverage information Interval History Patient feeling okay this morning, denies any concerns. Still is having some pain and requests to stay for another day. Confirms that chest pain is improving, denies any dyspnea. No fevers/chills. Physical Exam Vital Signs: Temp: 98 ??F (36.7 ??C) Temp src: Oral BP: 101/67 Pulse: 93 Resp: 18 SpO2: 98 % O2 Device: None (Room air) Weight: 0 lbs 0 oz Constitutional: awake, alert, NAD, resting comfortably in bed Respiratory: No increased work of breathing, good air exchange, clear to auscultation bilaterally, no crackles or wheezing Cardiovascular: RRR, no murmur noted Skin: no bruising or bleeding Neurologic: Awake, alert, oriented to name, place and time. Cranial nerves II- XII are grossly intact. Nonfocal neuro exam. Medical Decision Making Please see A&P for additional details of medical decision making. Data PAST 24 HR DATA REVIEWED I have personally reviewed the following data over the past 24 hrs: 15.3 (H) \ 8.2 (L) / 401 134 (L) 105 11.8 / 88 4.6 22 0.70 \ ALT: 33 AST: 34 AP: 106 TBILI: 1.3 (H) ALB: 4.0 TOT PROTEIN: 7.2 LIPASE: N/A Ferritin: N/A % Retic: 12.7 (H) LDH: 451 (H) Imaging results reviewed over the past 24 hrs: Recent Results (from the past 24 hours) Echocardiogram Complete Result Value LVEF 55-60% Narrative [id number]^BRITTANEY^JERMAINE [facility] Echocardiography Laboratory [address] [place] [id number] Name: LEW HERNÁNDEZ : 1995 Study Date: 06/27/2024 01:58 PM Age: 29 yrs Gender: Female Patient Location: [facility] Reason For Study: Pulmonary Emboli Ordering Physician: JERMAINE QUISPE Performed By: Maggy Franks RDCS BSA: 1.5 m2 Height: 61 in Weight: 112 lb BP: 120/83 mmHg Procedure Echocardiogram with two-dimensional, color and spectral Doppler. Interpretation Summary Global and regional left ventricular function is normal with an EF of 55-60%. The right ventricle is normal size. Global right ventricular function is normal. Mild tricuspid insufficiency is present. Pulmonary artery systolic pressure cannot be assessed. The inferior vena cava was normal in size with preserved respiratory variability. No significant valvular abnormalities present. Previous study not available for comparison. Left Ventricle Left ventricular size is normal. Left ventricular wall thickness is normal. Global and regional left ventricular function is normal with an EF of 55-60%. Left ventricular diastolic function is normal. Right Ventricle The right ventricle is normal size. Global right ventricular function is normal. Atria Both atria appear normal. Mitral Valve The mitral valve is normal. Trace mitral insufficiency is present. Aortic Valve On Doppler interrogation, there is no significant stenosis or regurgitation. The aortic valve is tricuspid. Tricuspid Valve Mild tricuspid insufficiency is present. The peak velocity of the tricuspid regurgitant jet is not obtainable. Pulmonary artery systolic pressure cannot be assessed. Pulmonic Valve The pulmonic valve is normal. Vessels The aorta root is normal. The inferior vena cava was normal in size with preserved respiratory variability. Pericardium No pericardial effusion is present. Miscellaneous No significant valvular abnormalities present. Compared to Previous Study Previous study not available for comparison. MMode/2D Measurements & Calculations IVSd: 1.00 cm LVIDd: 4.8 cm LVIDs: 3.1 cm LVPWd: 0.99 cm FS: 35.8 % LV mass(C)d: 166.8 grams LV mass(C)dI: 112.9 grams/m2 Ao root diam: 2.7 cm asc Aorta Diam: 2.6 cm LVOT diam: 2.1 cm LVOT area: 3.3 cm2 Ao root diam index Ht(cm/m): 1.7 Ao root diam index BSA (cm/m2): 1.8 Asc Ao diam index BSA (cm/m2): 1.7 Asc Ao diam index Ht(cm/m): 1.6 LA Volume (BP): 44.5 ml LA Volume Index (BP): 30.1 ml/m2 RV Base: 3.6 cm RWT: 0.41 TAPSE: 2.3 cm Doppler Measurements & Calculations MV E max lj: 90.1 cm/sec MV A max lj: 50.3 cm/sec MV E/A: 1.8 MV dec slope: 568.9 cm/sec2 MV dec time: 0.16 sec PA acc time: 0.14 sec E/E' av.1 Lateral E/e': 5.6 Medial E/e': 6.7 RV S Lj: 15.7 cm/sec Measurements from QLAB EDV (RV HM): 121.9 ml EF (RV HM): 59.4 % ESV (RV HM): 49.5 ml RV 4C LS (): -22.1 % RV Free Wall LS (): -23.7 % Report approved by: SALVADOR PREEA MD on 06/27/2024 02:51 PM Cosigned by Alex Gillespie MD at 06/28/2024 12:23 PM MATTRESS FILLER RESS FILLER RESS FILLER Associated attestation - Alex Gillespie MD - 06/28/2024 12:23 PM MATTRESS FILLER Physician Attestation I saw this patient with the resident and agree with the resident/fellow's findings and plan of careas documented in the note. Kenney findings: resting, no distress, started DOAC Please see A&P for additional details of medical decision making. I have personally reviewed the following data over the past 24 hrs: 15.3 (H) \ 8.2 (L) / 401 134 (L) 105 11.8 / 88 4.6 22 0.70 \ ALT: 33 AST: 34 AP: 106 TBILI: 1.3 (H) ALB: 4.0 TOT PROTEIN: 7.2 LIPASE: N/A Ferritin: N/A % Retic: 12.7 (H) LDH: 451 (H) Alex Gillespie MD Date of Service (when I saw the patient): 06/28/24 * Duke Olivares RN - 06/28/2024 7:13 AM CST D: 3/3 Sickle cell pain crisis and bilat PE I: Monitored vitals and assessed pt status. Changed: Afebirle, VSS. A&O*4 on RA. Independent to bathroom and in room. Pain to chest/back onscheduled Dialaudid. Intermittent nausea, zofran and benadryl given. Heparin drip running, xA thereaputic. Pt slept on/off. No acute events. Running: Heparin @ 1200 units/hr PRN: Zofran and Benadryl Temp: [97.9 ??F (36.6 ??C)-98.6 ??F (37 ??C)] 97.9 ??F (36.6 ??C) Pulse: [86-93] 93 Resp: [18-20] 18 BP: (104-112)/(59-76) 110/76 Cuff Mean (mmHg): [87-88] 87 SpO2: [93 %-98 %] 93 % P: Continue to monitor Pt status and report changes to treatment team. RESS FILLER * Rl Elais MD - 06/27/2024 11:41 AM CST [facility] Progress Note - Medicine Service, [facility])[3] TEAM 1 Date of Admission: 06/26/2024 Assessment & Plan Lew Hernández is a 29 year old female admitted on 06/26/2024. She has a PMHx of sickle cell disease (c/b multiple episodes of sickle cell pain crisis, ACS, functional asplenia, and avascular necrosis of the hip), PE, and anxiety who has had multiple recent admissions and ED visits for pain crises. She presented to the ED last night with continued acute vaso-inclusive pain and chest pain, and was found to have bilateral pulmonary emboli. Updates Today - Pharm liaison consult for donis of apixaban sent - plan to transition off heparin gtt to DOAC today - Hematology consulted, appreciate recs - continue patient pain plan as outlined - topical PRNs available for patient's use - bilateral lower extremity ultrasound pending - echocardiogram pending #Bilateral pulmonary emboli Patient has sharp chest pain localized to the left side that is exacerbated by deep breathing. She noted shortness of breath upon admission, but improvement today. Has not required any supplemental oxygen. D-Dimer is elevated to 0.[address] Chest shows bilateral pulmonary emboli, in addition to bilateral pulmonary nodules. No signs of right heart strain from CT chest, but echocardiogram pending. Heparin gtt started upon admission, but likely patient can be transitioned to DOAC today. Of note, patient with history of pulmonary emboli in the past, but has not been on consistent anticoagulation since treatment at that time. 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 She was hospitalized again from 06/16/24-06/20/24 with ongoing uncontrolled vaso-occlusive pain in her back and chest tightness. Aditionally, she has presented to the ED 3 times in the past week before returning last night with continued concerns for pain. Per above, she has newfound bilateral pulmonary emboli. She does not endorse being in worse pain than previously and so, per the patient, we have referred to her care coordination plan and previous hospitalizations to help optimize her regimen and will adjust accordingly to manage her current pain crisis. Of note, her CXR is stable with no new findings. Blood cultures NGTD, urinalysis without signs of infection. COVID/influenza/RSV swab pending. Hemoglobin noted to be stable at this time at 8.5. - Hematology consulted, appreciate any further recs - dilaudid 2 mg Q2H scheduled - zofran, benadryl, senna PRN for supportive measures - Continue FLYING INSTRUCTOR hydroxyurea 1000mg BID - Continue FLYING INSTRUCTOR folic acid 1mg daily - Monitoring CBC w/diff, LDH, reticulocyte count, and LDH daily - Type & screened - Continue topical diclofenac, lidocaine, icy hot PRN #Leukocytosis #Insomnia - continue melatonin 3 mg PRN #Anxiety - Continue FLYING INSTRUCTOR fluoxetine 10 mg daily - Benadryl PRN per Pain Plan - Zofran PRN per Pain Plan Diet: Regular Diet Adult DVT Prophylaxis: Heparin gtt, plan to transition to DOAC Santiago Catheter: Not present Fluids: None Lines: PRESENT Port a Cath 05/25/24 Single Lumen Left Chest wall-Site Assessment: WDL Cardiac Monitoring: None Code Status: Full Code Clinically Significant Risk Factors Present on Admission # Hyperchloremia: Highest Cl = 109 mmol/L in last 2 days, will monitor as appropriate # Anemia: based on hgb <11 # Financial/Environmental Concerns: Social Drivers of Health Disposition Plan Medically Ready for Discharge: Anticipated Tomorrow The patient's care was discussed with the Attending Physician, Dr. Gillespie . RL ELIAS MD Medicine Service, [facility])[3] TEAM [address] [place] [address] Securely message with [employer] (more info) Text page via [facility] Paging/Directory See signed in provider for up to date coverage information Interval History Patient notes that she feels as though her pain is much better controlled this morning. Notes that upon going home, she initially felt better after discharging, but then started to develop pleuritic chest pain. Notes that she felt dyspneic initially yesterday, but that this has greatly improved at this time. Physical Exam Vital Signs: Temp: 98.6 ??F (37 ??C) Temp src: Oral BP: 116/71 Pulse: 63 Resp: 18 SpO2: 100 % O2 Device: None (Room air) Weight: 0 lbs 0 oz Constitutional: awake, alert, NAD, resting comfortably in bed Respiratory: No increased work of breathing, good air exchange, clear to auscultation bilaterally, no crackles or wheezing Cardiovascular: Normal S1 and S2, and no murmur noted Skin: no bruising or bleeding Neurologic: Awake, alert, oriented to name, place and time. Cranial nerves II- XII are grossly intact. Nonfocal neuro exam. Medical Decision Making Please see A&P for additional details of medical decision making. Data PAST 24 HR DATA REVIEWED I have personally reviewed the following data over the past 24 hrs: 17.8 (H); 17.8 (H) \ 8.5 (L); 8.5 (L) / 469 (H); 469 (H) 136 104 8.0 / 90 4.2 23 0.74 \ ALT: 35 AST: 41 AP: 113 TBILI: 1.2 ALB: 4.0 TOT PROTEIN: 7.4 LIPASE: N/A Trop: <6 BNP: N/A Procal: 0.03 CRP: 4.22 Lactic Acid: N/A INR: N/A PTT: N/A D-dimer: 0.69 (H) Fibrinogen: N/A Ferritin: N/A % Retic: 15.5 (H) LDH: N/A Imaging results reviewed over the past 24 hrs: Recent Results (from the past 24 hours) Chest XR, PA & LAT Narrative EXAM: XR CHEST 2 VIEWS 06/26/2024 3:13 PM HISTORY: chest pain COMPARISON: History of 06/25/2024 FINDINGS: Stable bilateral port catheters with tips in the mid/lower SVC. Stable mildly low lung volumes. Stable cardiac silhouette. Trachea is midline. Unchanged appearance of patchy right middle lobe infiltrate versus atelectasis. No new or worsening opacity. No significant pleural effusion. No appreciable pneumothorax. Impression IMPRESSION: 1. Stable appearance of right middle lobe opacities which may represent infiltrate versus atelectasis. 2. No new or worsening cardiopulmonary abnormality. I have personally reviewed the examination and initial interpretation and I agree with the findings. EVY FUENTES MD CT Chest Pulmonary Embolism w Contrast Narrative CT chest pulmonary angiogram with contrast INDICATION: Chest pain and elevated dimer CONTRAST: 55 mL intravenous [id number] COMPARISON: CT chest 05/23/[address] FINDINGS: Pancreas appears unremarkable. No obvious abnormal breast tissues. Left-sided approach port catheter tip near the IVC/right atrial junction. Right sided approach port catheter tip in the right atrium. Heart size normal. Thoracic aortic caliber normal. Pulmonary artery approximately 3.0 cm in caliber borderline upper normal. Anterior mediastinal soft tissue density noted which may represent residual thymus similar to previous. No definitive isolated mass. Heart is upper normal size. No pleural or pericardial effusion. There is some reflux of contrast into the IVC as well as the middle and left hepatic veins. Calcified gallstones in the right upper abdomen within the gallbladder. No adrenal nodule. A there is a hypodense filling defect in the lateral segmental branch of the right lower lobe pulmonary artery (10/145), there is contrast beyond this area and therefore this is nonocclusive. A hypodense filling defect in right lower lobe posterior basilar segmental branches well (10/153) and again contrast gets beyond this area. Other medial basilar segmental branch emboli noted near the end of the visible artery. This is indeterminate whether this is actually occlusive or not. No saddle central embolus. Emboli also noted in left upper lobe branch vasculature (10/115). There is a paradoxical septal bowing the left ventricle. The right ventricle is not enlarged. The reflux of contrast into the hepatic veins and IVC may be related to timing as there is dense aortic filling as well. However, despite the presence of the emboli, there is no definitive evidence of right heart strain. Bone detail shows some concavity of endplates vertebrae T10 and satellite T8 and at T6 similar to recent previous. This patient has reported sickle cell disease which likely accounts for the endplate appearance a microvascular infarctions. 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 Findings mark shows multiple pulmonary nodules bilaterally mostly in the lower lobes but also in both upper lobes these appear similar in size and number and overall distribution not surprising given the very short interval. There are some punctate cavitations in some of the larger nodules. These may be potentially septic emboli comment recommend follow-up to clearing the renal neoplasm is probably less likely revealing the electronic medical record from the emergency room today. Also, the patient reportedly recently had diagnosis of endocarditis within the last 2 years no significant changes. No developing consolidations in the short interval. Impression IMPRESSION: Bilateral pulmonary emboli and bilateral pulmonary nodules, cannot exclude septic emboli the lungs given 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 No definitive evidence of right heart strain. Some bony changes again noted of sickle cell in the thoracic spine and humeral heads typical of microvascular insults related to sickle cell. EVY FUENTES MD US Lower Extremity Venous Duplex Bilateral Impression RESIDENT PRELIMINARY INTERPRETATION IMPRESSION: No evidence of deep venous thrombosis in either lower extremity. Cosigned by Alex Gillespie MD at 06/27/2024 2:25 PM MATTRESS FILLER RESS FILLER RESS FILLER Associated attestation - Alex Gillespie MD - 06/27/2024 2:25 PM MATTRESS FILLER Physician Attestation I saw this patient with the resident and agree with the resident/fellow's findings and plan of careas documented in the note. Kenney findings: alert, awake,no distress. Pt agreeable to transition to DOAC when confirmed with pharmacy. Potential DC home tomorrow. Please see A&P for additional details of medical decision making. I have personally reviewed the following data over the past 24 hrs: 17.8 (H); 17.8 (H) \ 8.5 (L); 8.5 (L) / 469 (H); 469 (H) 136 104 8.0 / 90 4.2 23 0.74 \ ALT: 35 AST: 41 AP: 113 TBILI: 1.2 ALB: 4.0 TOT PROTEIN: 7.4 LIPASE: N/A Trop: <6 BNP: N/A Procal: 0.03 CRP: 4.22 Lactic Acid: N/A INR: N/A PTT: N/A D-dimer: 0.69 (H) Fibrinogen: N/A Ferritin: N/A % Retic: 15.5 (H) LDH: N/A Alex Gillespie MD Date of Service (when I saw the patient): 06/27/24 documented in this encounter H&P Notes * Jermaine Quispe MD - 06/26/2024 5:21 PM CST [facility] History and Physical - Medicine Service, [facility]3] TEAM Date of Admission: 06/26/2024 Assessment & Plan Lew Hernández is a 29 year old female admitted on 06/26/2024. She has a PMHx of sickle cell disease (c/b multiple episodes of sickle cell pain crisis, ACS, functional asplenia, and avascular necrosis of the hip), PE, and anxiety who has had multiple recent admissions and ED visits for pain crises. She presented to the ED last night with continued acute vaso-inclusive pain and chest pain, and was found to have bilateral pulmonary emboli. She is in no acute distress and awaiting further workup. #Bilateral pulmonary emboli Patient has sharp chest pain localized to the left side that is exacerbated by deep breathing. Thisis difficult to differentiate between her sickle cell pain and a different etiology. She denies shortness of breath. D-Dimer is elevated to 0.[address] Chest shows bilateral pulmonary emboli, in addition to bilateral pulmonary nodules. No obvious sign of right heart strain, though an echocardiogramwill provide additional detail (i.e. massive, sub-massive, stable) to categorize the emboli. - Heparin gtt started - Echocardiogram ordered - Hematology consulted iso PE in patient with sickle cell disease #Sickle cell acute pain crisis #Sickle cell anemia, SS Genotype Recent hospitalization from 06/12/24-06/15/24 for sickle cell crisis pain, chest pain, and concern for pnuemonia vs acute chest syndrome. She was hospitalized again from 06/16/24-06/20/24 with ongoing uncontrolled vaso-occlusive pain in her back and chest tightness. Aditionally, she has presented to the ED 3 times in the past week before returning last night with continued concerns for pain. Per above, she has newfound bilateral pulmonary emboli. She does not endorse being in worse pain than previously and so, per the patient, we have referred to her care coordination plan and previous hospitalizations to help optimize her regimen and will adjust accordingly to manage her current pain crisis. - Per patient's care coordination plan/previous hospitalizations, ordered: - Hydromorphone 2 mg q2h PRN - Diphenhydramine 25 mg q6h PRN - Titrate as needed - Continue hydroxyurea 1000 BID - Hematology consulted, as above - Anxiety management as below #Anxiety Patients notes that she is having 10/10 anxiety and is tearful. She takes fluoxetine 10 mg qdaily at home. 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 #Insomnia - Ordered melatonin 3 mg at bedtime PRN Diet: Regular DVT Prophylaxis: heparin gtt iso PEs Santiago Catheter: Not present Lines: PRESENT Cardiac Monitoring: None Code Status: Full Clinically Significant Risk Factors Present on Admission # Hyperchloremia: Highest Cl = 109 mmol/L in last 2 days, will monitor as appropriate # Coagulation Defect: INR = 1.45 (Ref range: 0.85 - 1.15) and/or PTT = 32 Seconds (Ref range: 22 - 38 Seconds), will monitor for bleeding # Anemia: based on hgb <11 # Financial/Environmental Concerns: Disposition Plan Medically Ready for Discharge: Anticipated in 2-4 Days The patient's care was discussed with the Attending Physician, Dr. Esdras Markham . Jermaine Quispe MD Medicine Service, [facility] Securely message with [employer] info) Text page via [facility] Paging/Directory See signed in provider for up to date coverage information Chief Complaint Acute sickle cell pain crisis History is obtained from the patient History of Present Illness Lew Hernández is a 29 year old female who returns to the ED with sickle cell pain. Patient was hospitalized with similar symptoms 06/12-06/15 and 06/16-06/20. In addition, patient has visited the ED with similar symptoms 06/22, 06/23 and 06/24. She says every time she has left the hospital, it has felt like it was resolved/resolving, but thenthe pain returns. She is not sure how it is triggered, and wonders if it has even been impacted by changes in the weather. Patient has been unable to follow up with her hematology appointments outpatient as she has been in the hospital during them several times. During our interview, she describes sharp left-sided chest pain that is exacerbated by deep breathing. Her pain is at 7/10 as her pain meds are wearing off, and she endorses 10/10 anxiety. Her immediate description of her symptoms during this interview and her previous descriptions vary slightly inlocation of the pain. She has mentioned pain in her back, chest, arms and thighs. Per the ED note, she indicates this feels different than previous acute chest crises. However, during our interview, she also notes that some of her most recent hospitalizations did not clearly identify if she was having acute chest syndrome or pneumonia. She notes having had acute chest symptoms intermittently throu ghout her life. The pain can be localized to various quadrants in her chest and may not be associated with SOB. Patient denies fevers, chills, shortness of breath, vomiting, abdominal pain and acute changes to her GI/ patterns. She is able to tolerate food, though she does have some intermittent nausea. 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, had port-a-cath in [facility] Functional asplenia Gallstones Hb-SS disease without [...] BX GENERIC EQUIV) 0.3 MG/0.3ML injection 2-pack Self, Other Yes No Sig: Inject 0.3 mg into the muscle as needed for anaphylaxis. May repeat one time in 5-15 minutes if response to initial dose is inadequate. FLUoxetine (PROZAC) 10 MG capsule Self, Other No No Sig: Take 1 capsule (10 mg) by mouth daily. HYDROmorphone (DILAUDID) 2 MG tablet Self, Other No No Sig: Take 2 tablets (4 mg) by mouth every 6 hours as needed for severe pain. diphenhydrAMINE (BENADRYL) 25 MG tablet Self, Other Yes No Sig: Take 1-2 tablets by mouth every 6 hours as needed for itching. folic acid (FOLVITE) 1 MG tablet Self, Other No No Sig: Take 1 tablet (1 mg) by mouth daily. hydroxyurea (HYDREA) 500 MG capsule Self, Other No No Sig: Take 2 capsules (1,000 mg) by mouth 2 times daily ibuprofen (ADVIL/MOTRIN) 200 MG tablet Self, Other Yes No Sig: Take 200 mg by mouth every 6 hours as needed for pain. multivitamin, therapeutic (THERA-VIT) TABS tablet Self, Other No No Sig: Take 1 tablet by mouth daily. naloxone (NARCAN) 4 MG/0.1ML nasal spray Self, Other No No Sig: [place] 1 spray (4 mg) into one nostril alternating nostrils as needed for opioid reversal (for opiate overdose if not breathing and unconscious. have your family member watch video on how to use/read information sheet). every 2-3 minutes until assistance arrives Facility-Administered Medications: None Review of Systems The 10 point Review of Systems is negative other than noted in the HPI or here. Social History I have reviewed this patient's social history and updated it with pertinent information if needed. Social History Tobacco Use Smoking status: Never Smokeless tobacco: Never Substance Use Topics Alcohol use: Not Currently Drug use: Never Family History I have reviewed this patient's family history and updated it with pertinent information if needed. Family History Problem Relation Age of Onset Sickle Cell Trait Daughter Allergies Allergies Allergen Reactions Banana Anaphylaxis, Hives [...] Hives Acetaminophen Hives Cashew Nut Oil Hives Physical Exam Vital Signs: Temp: 97.2 ??F (36.2 ??C) Temp src: Oral BP: 120/83 Pulse: 77 Resp: 17 SpO2: 100 % O2 Device: None (Room air) Weight: 0 lbs 0 oz Constitutional: awake, alert, cooperative, tearful, and appears stated age Respiratory: No increased work of breathing, good air exchange, clear to auscultation bilaterally, no crackles or wheezing Cardiovascular: Normal S1 and S2, and no murmur noted Skin: no bruising or bleeding Neurologic: Awake, alert, oriented to name, place and time. Cranial nerves II- XII are grossly intact. Neuropsychiatric: General: tearful, but otherwise calm, and makes normal eye contact Medical Decision Making Data I have personally reviewed the following data over the past 24 hrs: 12.3 (H) \ 8.5 (L) / 505 (H) 140 109 (H) 6.7 / 94 4.3 20 (L) 0.66 \ Trop: <6 BNP: N/A Procal: 0.03 CRP: 4.22 Lactic Acid: N/A INR: N/A PTT: N/A D-dimer: 0.69 (H) Fibrinogen: N/A Imaging results reviewed over the past 24 hrs: Recent Results (from the past 24 hours) XR Chest 2 Views Narrative EXAM: XR CHEST 2 VIEWS LOCATION: [facility] DATE: 06/25/2024 INDICATION: Chest pain, SSC. COMPARISON: 06/16/2024. Impression IMPRESSION: Bilateral portacatheter with tips in the SVC. Mild low lung volumes. Heart size and pulmonary vascularity stable at the upper limits of normal. Mild patchy right middle lobe infiltrate oratelectasis. Chest XR, PA & LAT Narrative EXAM: XR CHEST 2 VIEWS 06/26/2024 3:13 PM HISTORY: chest pain COMPARISON: History of 06/25/2024 FINDINGS: Stable bilateral port catheters with tips in the mid/lower SVC. Stable mildly low lung volumes. Stable cardiac silhouette. Trachea is midline. Unchanged appearance of patchy right middle lobe infiltrate versus atelectasis. No new or worsening opacity. No significant pleural effusion. No appreciable pneumothorax. Impression IMPRESSION: 1. Stable appearance of right middle lobe opacities which may represent infiltrate versus atelectasis. 2. No new or worsening cardiopulmonary abnormality. I have personally reviewed the examination and initial interpretation and I agree with the findings. EVY FUENTES MD CT Chest Pulmonary Embolism w Contrast Narrative CT chest pulmonary angiogram with contrast INDICATION: Chest pain and elevated dimer CONTRAST: 55 mL intravenous [id number] COMPARISON: CT chest 05/23/[address] FINDINGS: Pancreas appears unremarkable. No obvious abnormal breast tissues. Left-sided approach port catheter tip near the IVC/right atrial junction. Right sided approach port catheter tip in the right atrium. Heart size normal. Thoracic aortic caliber normal. Pulmonary artery approximately 3.0 cm in caliber borderline upper normal. Anterior mediastinal soft tissue density noted which may represent residual thymus similar to previous. No definitive isolated mass. Heart is upper normal size. No pleural or pericardial effusion. There is some reflux of contrast into the IVC as well as the middle and left hepatic veins. Calcified gallstones in the right upper abdomen within the gallbladder. No adrenal nodule. A there is a hypodense filling defect in the lateral segmental branch of the right lower lobe pulmonary artery (10/145), there is contrast beyond this area and therefore this is nonocclusive. A hypodense filling defect in right lower lobe posterior basilar segmental branches well (10/153) and again contrast gets beyond this area. Other medial basilar segmental branch emboli noted near the end of the visible artery. This is indeterminate whether this is actually occlusive or not. No saddle central embolus. Emboli also noted in left upper lobe branch vasculature (10/115). There is a paradoxical septal bowing the left ventricle. The right ventricle is not enlarged. The reflux of contrast into the hepatic veins and IVC may be related to timing as there is dense aortic filling as well. However, despite the presence of the emboli, there is no definitive evidence of right heart strain. Bone detail shows some concavity of endplates vertebrae T10 and satellite T8 and at T6 similar to recent previous. This patient has reported sickle cell disease which likely accounts for the endplate appearance a microvascular infarctions. 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 Findings mark shows multiple pulmonary nodules bilaterally mostly in the lower lobes but also in both upper lobes these appear similar in size and number and overall distribution not surprising given the very short interval. There are some punctate cavitations in some of the larger nodules. These may be potentially septic emboli comment recommend follow-up to clearing the renal neoplasm is probably less likely revealing the electronic medical record from the emergency room today. Also, the patient reportedly recently had diagnosis of endocarditis within the last 2 years no significant changes. No developing consolidations in the short interval. Impression IMPRESSION: Bilateral pulmonary emboli and bilateral pulmonary nodules, cannot exclude septic emboli the lungs given 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 No definitive evidence of right heart strain. Some bony changes again noted of sickle cell in the thoracic spine and humeral heads typical of microvascular insults related to sickle cell. EVY FUENTES MD Cosigned by Esdras Markham MD at 06/26/2024 11:25 PM MATTRESS FILLER RESS FILLER RESS FILLER Associated attestation - Esdras Markham MD - 06/26/2024 11:25 PM MATTRESS FILLER Physician Attestation I saw this patient with the resident and agree with the resident/fellow's findings and plan of careas documented in the note. [place] findings: Lew notes ongoing pleuritic chest pain, low back pain and leg pain which is similar to her prior episodes of pain crisis. She does not note dyspnea. CT chest with new bilateral PE. Agree with management plan for pain crisis and acute PE in sickle cell anemia as noted below. IV dilaudid switched from PRN to scheduled Q2h doses with hold parameters for more consistent pain reliefand as per care co-ordination plan. Esdras Markham MD Date of Service (when I saw the patient): 06/26/24 documented in this encounter Consult Notes * Sandy Bertrand RN - 06/29/2024 10:57 AM CSTAssociated Order(s): CARE MANAGEMENT / SOCIAL WORK IP CONSULT; SOCIAL WORK IP CONSULT Care Management Initial Consult General Information Assessment completed with: Patient, VM-chart review, Type of CM/SW Visit: Initial Assessment Primary Care Provider verified and updated as needed: Yes Readmission within the last 30 days: previous discharge plan unsuccessful (Exacerbation) Reason for Consult: (high readmission risk, insurance clarification) Advance Care Planning: Advance Care Planning Reviewed: no concerns identified Communication Assessment Patient's communication style: spoken language (Slovak or Bilingual) Cognitive Cognitive/Neuro/Behavioral: WDL Living Environment: People in home: child(jese), dependent, significant other Current living Arrangements: house Able to return to prior arrangements: yes Family/Social Support: Care provided by: self Provides care for: child(jese) Marital Status: Lives with Significant Other Support system: Significant Other Description of Support System: Supportive Current Resources: Patient receiving home care services: No Community Resources: None Equipment currently used at home: none Supplies currently used at home: None Employment/Financial: Employment Status: unemployed Financial Concerns: none Does the patient's insurance plan have a 3 day qualifying hospital stay waiver? No Functional Status: Prior to admission patient needed assistance: Dependent ADLs:: Independent Dependent IADLs:: Independent Mental Health Status: not discussed Chemical Dependency Status:not discussed Values/Beliefs: Spiritual, Cultural Beliefs, Anglican Practices, Values that affect care: no Discussed ???Partnership in Safe Discharge Planning??? document with patient/family: Yes: Additional Information: Per primary team patient is discharging home today. Hematology wants her on a DOAC due to her sickle cell. Appears patients' insurance doesn't cover this. She can have one month free, wondering if she can sign up for PROSPER Fleming, pharmacy liaison reviewed - pt has BCBS insurance that covers this drug with $0 copay. Pt willnot need to apply for new insurance. Patient has ride with friend/family No further care management intervention anticipated at this time. Please re- consult if further needs arise. Care management signing off. Sandy Bertrand RN, [facility] Inpatient Care Management - FLOAT RESS FILLER * Bernadette Boggs - 06/29/2024 8:55 AM CSTAssociated Order(s): PHARMACY LIAISON FOR MEDICATION COVERAGE CONSULT; PHARMACY LIAISON FOR MEDICATION COVERAGE CONSULT Summary: Rx coverage for Eliquis Discharge Pharmacy Test Claim Patient's commercial [place]BS [place] plan covers Eliquis with an expected monthly copay of $0. Test Claim Copay Eliquis 0.00 Bernadette Boggs [facility] Pharmacy Liaison (A - L) Available on [employer] Disclaimer: Pharmacy test claims are extimates and may not reflect final costs. Suggested alternatives aim to be cost-effective but may not be therapeutically equivalent as this consult is informational and does not constitute medical advice. Clinical decisions should be made by qualified healthcare providers. RESS FILLER RESS FILLER RESS FILLER RESS FILLER * Bernadette Boggs - 06/27/2024 3:13 PM CSTAssociated Order(s): PHARMACY LIAISON FOR MEDICATION COVERAGE CONSULT Summary: Rx Coverage for Xarelto Discharge Pharmacy Test Claim Patient's commercial [place] plan covers xarelto with an expected monthly copay of $0. Test Claim Copay Xarelto 0.00 Bernadette Boggs [facility] Pharmacy Liaison (A - L) Available on [employer] Disclaimer: Pharmacy test claims are extimates and may not reflect final costs. Suggested alternatives aim to be cost-effective but may not be therapeutically equivalent as this consult is informational and does not constitute medical advice. Clinical decisions should be made by qualified healthcare providers. RESS FILLER RESS FILLER * Carmen Aviles PA-C - 06/27/2024 9:03 AM CSTAssociated Order(s): HEMATOLOGY ADULT IP CONSULT Images from the original note were not included. Hematology Consult Note Date of Service: 06/27/2024 Patient: Lew Hernández Admission Date: 06/26/2024 Hospital Day # Hospital Day: 2 Primary Outpatient Family Manager: Dr. Evy Samuel Reason for Consult: pt with multiple recent ED visits for sickle cell pain, now found to have b/l PE, heparin gtt started Assessment & Plan: Lew Hernández is a 29 year old female with sickle cell disease (HbSS) c/b acute chest syndrome, stroke (unclear details), cardiac thrombus (unclear when), upper extremity DVT (11/2023), transfusional iron overload previously on jadenu, AVN left hip, retinopathy (right eye), chronic pain, gallstones, frequent admissions for exacerbation of chronic pain, recent placement of double ports (05/25/24) admitted 06/26/24 with flare of sickle cell pain (back and legs) and also chest pain not characteristic of sickle cell pain, dx with new bilateral pulmonary emboli, unclear etiology but potentially recent b/l ports. She is afebrile and minimally symptomatic from pulmonary emboli (mild chest pain and exertional dyspnea), no hypoxia. Echo is pending. She denies smoking, recent travel, no estrogen use, PE could be provoked given recent port placements and frequent hospitalizations. Recommendations: General Sickle Cell Management - Monitor CBC w/ diff, retic count, bilirubin daily for several days then ok to reduce frequency ifclinically improved -Please discuss pRBC transfusions with hematology first given risk of alloimmunization and iron overload -Baseline hb ~8 - Continue hydroxyurea - Continue folic acid Bilateral PE (lateral and posterior RLL, TWAN) Unclear hx of clots (reported cardiac thrombus and right upper extremity clot) -reports dx with cardiac thrombus 11/2022 during episode of culture negative endocarditis, MANUEL from 12/07/22 shows small RA mass on lateral wall, likely chiari network or calcified eustachian valve, reports tx with eliquis x 1 month (do not have access to full notes) -Reports hx of clot in her right hand, tx with eliquis x 1 month -Transition from heparin to eliquis (10 mg BID x 7days -->5 mg BID), will need to clarify clot hx and provoking factors to determine ultimate duration -Agree with echo, recommend b/l LE doppler to complete work-up Acute vaso-occlusive pain episode - Continue aggressive pain control per primary team and care plan -pain currently well controlled on regimen - Consider topicals (lidocaine patch, diclofenac gel, BenGay, warm packs) if patient finds these helpful Acute chest prevention: - Monitor O2 sats and vitals - Encourage incentive spirometry q1h WA - Encourage ambulation, consider PT consult - Monitor for fluid overload and discontinue fluids if taking adequate po - Please page hematology if patient develops fever, acute shortness of breath or other symptoms of acute chest syndrome. Follow up - Will continue to follow while inpatient. - Next outpatient follow up to be arranged. Patient was seen and plan of care was discussed with attending physician Dr. Rivera We will continue to follow this patient. Please don't hesitate to contact the Fellow On-Call with questions. I spent 35 minutes in the care of this patient today, which included time necessary for preparationfor the visit, obtaining history, ordering medications/tests/procedures as medically indicated, review of pertinent medical literature, counseling of the patient, communication of recommendations to the care team, and documentation time. Jenise Aviles PA-C [facility] [phone] History of Present Illness: Lew Hernández is a 29 year old female with sickle cell disease (HbSS) c/b acute chest syndrome, stroke (unclear details), cardiac thrombus (unclear when), upper extremity DVT (11/2023), transfusional iron overload previously on jadenu, AVN left hip, retinopathy (right eye), chronic pain, gallstones, frequent admissions for exacerbation of chronic pain, recent placement of double ports (05/25/24) admitted 06/26/24 with flare of sickle cell pain (back and legs) and also chest pain not characteristic of sickle cell pain, and found to have b/l PE. She was started on heparin and reports since then chest pain has improved. She reports sickle cell pain in her back and legs is improved on current regimen. She had some GARNER before admission that shenoted for a few days. She reports hx of clot in her heart several years ago. Initially it was thought to be related to her port which was removed and she reports being tx with eliquis x 1 month. Thenshe had clot in her right hand. She isn't sure if it was PIV associated or she had a line at the time but notes she was also tx with eliquis x 1 month. She remains on room air and currently denies any complaints. She has irregular light periods. Review of Systems: Pertinent positive and negative systems described in HPI; the remainder of the 14 systems are negative Past Medical History: Past Medical History: Diagnosis Date Acute chest syndrome (H) multiple episodes, intubated once AVN of femur (H) left side Endocarditis 11/2022 culture-negative, [facility] Functional asplenia Gallstones Hb-SS disease without crisis [...] Currently Drug use: Never Social History Narrative [id number]-[id number] mom. Recently moved to [place] from [place], [place]. She is 1 of 9 [...] Socially Integrated (03/28/2024) [facility]ctions Do you often feel lonely [...] mg 1,000 mg Oral 4x Daily PRN Jermaine Quispe MD diclofenac (VOLTAREN) 1 % topical gel 2 g 2 g Topical 4x Daily PRN Rl Elias MD diphenhydrAMINE (BENADRYL) capsule 25 mg 25 mg Oral Q6H PRN Jermaine Quispe MD 25 mg at 06/26/24 1920 Or diphenhydrAMINE (BENADRYL) injection 25 mg 25 mg Intravenous Q6H PRN Jermaine Quispe MD 25 mg at 06/27/24 0828 FLUoxetine (PROzac) capsule 10 mg 10 mg Oral Daily Jermaine Quispe MD 10 mg at 06/27/24 0828 heparin 25,000 units in 0.45% NaCl 250 mL ANTICOAGULANT infusion 0-5,000 Units/hr Intravenous Continuous Jermaine Quispe MD 10.5 mL/hr at 06/27/24 0644 1,050 Units/hr at 06/27/24 0644 hydromorphone (DILAUDID) injection 2 mg 2 mg Intravenous Q2H Esdras Markham MD 2 mg at 06/27/24 0818 hydroxyurea (HYDREA) capsule 1,000 mg 1,000 mg Oral BID Jermaine Quispe MD 1,000 mg at 06/27/24 0828 hydrOXYzine HCl (ATARAX) tablet 25 mg 25 mg Oral Q6H PRN Jermaine Quispe MD 25 mg at 06/27/24 0819 Or hydrOXYzine HCl (ATARAX) tablet 50 mg 50 mg Oral Q6H PRN Jermaine Quispe MD lactated ringers infusion Intravenous Continuous lR Elias MD Lidocaine (LIDOCARE) 4 % Patch 1 patch 1 patch Transdermal Daily PRN Rl Elias MD lidocaine (LMX4) cream Topical Q1H PRN Jermaine Quispe MD lidocaine 1 % 0.1-1 mL 0.1-1 mL Other Q1H PRN Jermaine Quispe MD melatonin tablet 3 mg 3 mg Oral At Bedtime PRN Jermaine Quispe MD menthol (Topical Analgesic) 2.5% (BENGAY VANISHING SCENT) 2.5 % topical gel Topical Q6H PRN Rl Elias MD ondansetron (ZOFRAN ODT) ODT tab 4 mg 4 mg Oral Q6H PRN Jermaine Quispe MD 4 mg at 06/27/24 0819 Or ondansetron (ZOFRAN) injection 4 mg 4 mg Intravenous Q6H PRN Jermaine Quispe MD Patient is already receiving anticoagulation with heparin, enoxaparin (LOVENOX), warfarin (COUMADIN) or other anticoagulant medication Does not apply Continuous PRN Jermaine Quispe MD polyethylene glycol (MIRALAX) Packet 17 g 17 g Oral BID PRN Jermaine Quispe MD prochlorperazine (COMPAZINE) injection 10 mg 10 mg Intravenous Q6H PRN Jermaine Quispe MD Or prochlorperazine (COMPAZINE) tablet 10 mg 10 mg Oral Q6H PRN Jermaine Quispe MD senna-docusate (SENOKOT-S/PERICOLACE) 8.6-50 MG per tablet 1 tablet 1 tablet Oral BID PRN Jermaine Quispe MD Or senna-docusate (SENOKOT-S/PERICOLACE) 8.6-50 MG per tablet 2 tablet 2 tablet Oral BID PRJermaine Doty MD sodium chloride (PF) 0.9% PF flush 3 mL 3 mL Intracatheter Q8H Jermaine Quispe MD 3 mL at 06/26/24 2145 sodium chloride (PF) 0.9% PF flush 3 mL 3 mL Intracatheter q1 min prn Jermaine Quispe MD Current Outpatient Medications Medication Sig Dispense Refill diphenhydrAMINE (BENADRYL) 25 MG tablet Take 1-2 [...] 11 naloxone (NARCAN) 4 MG/0.1ML nasal spray [place] 1 spray (4 mg) into one nostril alternating nostrilsas needed for opioid reversal (for opiate overdose if not breathing and unconscious. have your family member watch video on how to use/read information sheet). every 2-3 minutes until assistance arrives 2 each 0 Physical Exam: BP 116/71 (BP Location: Right arm, Patient Position: Sitting, Cuff Size: Adult Regular) Pulse 63 Temp 98.6 ??F (37 ??C) (Oral) Resp 18 SpO2 100% Gen: Well appearing, in NAD HEENT: EOMI, PERRL, mmm, oropharynx clear CV: Normal rate, regular rhythm. No m/r/g Pulm: CTAB, no wheezing, normal work of breathing, on RA Abd: no rebound/guarding Ext: Warm and well perfused. No lower extremity edema Skin: No rash, cyanosis or petechial lesion Neuro: Alert and answering questions appropriately. Labs & Studies: I personally reviewed the following studies: ROUTINE LABS (Last four results): CMP Recent Labs Lab 06/27/24 0557 06/26/24 1442 06/25/24 2215 06/24/24 1011 06/23/24 1822 06/22/24 1910 NA 136 140 137 138 140 137 POTASSIUM 4.2 4.3 3.7 4.3 4.3 4.5 CHLORIDE 104 109* 107 108* 109* 108* CO2 23 20* 22 20* 24 21* ANIONGAP 9 11 8 10 7 8 GLC 90 94 87 98 102* 100* BUN 8.0 6.7 6.7 9.9 6.8 12.1 CR 0.74 0.66 0.69 0.62 0.61 0.71 GFRESTIMATED >90 >90 >90 >90 >90 >90 EVELIN 8.7* 9.0 8.7* 8.7* 8.8 9.5 MAG -- -- -- 2.1 -- -- PROTTOTAL -- -- -- 7.4 7.8 7.8 ALBUMIN -- -- -- 4.0 4.2 4.1 BILITOTAL -- -- -- 1.1 1.5* 1.4* ALKPHOS -- -- -- 119 125 119 AST -- -- -- 57* 84* 62* ALT -- -- -- 53* 69* 54* CBC Recent Labs Lab 06/27/24 0557 06/26/24 1442 06/25/24 2215 06/24/24 1011 WBC 17.8* 12.3* 12.5* 7.8 RBC 2.60* 2.58* 2.32* 2.49* HGB 8.5* 8.5* 7.8* 7.9* HCT 25.9* 26.1* 22.7* 24.8* MCV 100 101* 98 100 MCH 32.7 32.9 33.6* 31.7 MCHC 32.8 32.6 34.4 31.9 RDW 19.2* 19.5* 19.2* 19.0* PLT 469* 505* 451* 482* INR Recent Labs Lab 06/24/24 1011 INR 1.45* Cosigned by Octavio Rivera MD at 06/27/2024 4:18 PM MATTRESS FILLER RESS FILLER RESS FILLER Associated attestation - Octavio Rivera MD - 06/27/2024 4:18 PM MATTRESS FILLER Physician Attestation I saw and evaluated Lew Hernández as part of a shared SPORTS MARKETING SPECIALIST/PA visit. I personally reviewed the vital signs, medications, labs, and imaging. [place] management decisions made by me and carried out under my direction include: 29-year-old woman with sickle cell anemia admitted with chest pain, found to have pulmonary emboli. Recently had new ports placed, this may represent port associated thrombosis with embolization. Would recommend 3 months of anticoagulation followed by anticoagulation prophylaxis while ports are indwelling. We will coordinate follow-up with outpatient bulkhead carpenter. Counseling and/or coordination of care performed by me: Rounds 45 MINUTES SPENT BY ME on the date of service doing chart review, history, exam, documentation & further activities per the note. Octavio Rivera MD Date of Service (when I saw the patient): 06/27/24 This note was completed in part using dictation via the [employer] voice recognition software. Some word and grammatical errors may occur and must be interpreted in the appropriate clinical context. If there are any questions pertaining to this issue, please contact me for further clarification. documented in this encounter ED Notes * Yelitza Manriquez RN - 06/26/2024 2:02 PM CST Ambulatory to ED with complaints of a sickle cell pain crisis. Pt states symptoms started yesterday(06/25/24) and she attempted at home pain reigimine. Pt also attempted to cll infusion center but they were unable to help her. Pt denies SOB or chest pain. BP 112/80 Pulse 72 Temp 98 ??F (36.7 ??C) (Oral) Resp 16 SpO2 100% Hx: Sickle cell anemia, PE, CVA (self reported) Triage Assessment (Adult) Row Name 06/26/24 1402 Triage Assessment Airway WDL WDL Respiratory WDL Respiratory WDL WDL Skin Circulation/Temperature WDL Skin Circulation/Temperature WDL WDL Cardiac WDL Cardiac WDL WDL Peripheral/Neurovascular WDL Peripheral Neurovascular WDL WDL Cognitive/Neuro/Behavioral WDL Cognitive/Neuro/Behavioral WDL WDL RESS FILLER * Tammi Dave RN - 06/26/2024 1:51 PM CST Bed: [facility]- Expected date: Expected time: Means of arrival: Comments: [facility] appropriate RESS FILLER * Jayden Adhikari MD - 06/26/2024 1:45 PM CST Images from the original note were not included. [place] [facility] ([facility]) 06/26/24 ED PROVIDER NOTE History Chief Complaint Patient presents with Sickle Cell Pain Crisis HPI Lew Hernández is a 29 year old female with history of sickle cell disease, hemoglobin SS, acute chest syndrome in late 2023, prior PE, stroke, and endocarditis who presents to the ED for evaluation of sickle cell crisis. As noted patient was seen by Dr. Varner on 22 June, by Dr. Crane on Jun 23, by Dr. Mahajan on June 24, and by Dr. Naylor yesterday. She reports she has had ongoing issues with sickle cell related pain. She patient reports pain to her back and legs. She also notes some chest pain as well. 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 She reports some feeling of shortness of breath withthis. She reports history of endocarditis which she does not believe feels similar. She is not on blood thinners. No cough or fever. 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 Physical Exam BP: 112/80 Pulse: 72 Temp: 98 ??F (36.7 ??C) Resp: 16 SpO2: 100 % Physical Exam Constitutional: General: She is not in acute distress. Appearance: She is not toxic-appearing. HENT: Head: Normocephalic and atraumatic. Nose: Nose normal. Mouth/Throat: Mouth: Mucous membranes are moist. Pharynx: Oropharynx is clear. Eyes: Conjunctiva/sclera: Conjunctivae normal. Pupils: Pupils are equal, round, and reactive to light. Cardiovascular: Rate and Rhythm: Normal rate and regular rhythm. Heart sounds: No murmur heard. Pulmonary: Effort: Pulmonary effort is normal. No respiratory distress. Breath sounds: No wheezing or rales. Musculoskeletal: General: Normal range of motion. Skin: General: Skin is warm and dry. Neurological: General: No focal deficit present. Mental Status: She is alert and oriented to person, place, and time. ED Course, Procedures, & Data Procedures Results for orders placed or performed during the hospital encounter of 06/26/24 Chest XR, PA & LAT Status: None Narrative EXAM: XR CHEST 2 VIEWS 06/26/2024 3:13 PM HISTORY: chest pain COMPARISON: History of 06/25/2024 FINDINGS: Stable bilateral port catheters with tips in the mid/lower SVC. Stable mildly low lung volumes. Stable cardiac silhouette. Trachea is midline. Unchanged appearance of patchy right middle lobe infiltrate versus atelectasis. No new or worsening opacity. No significant pleural effusion. No appreciable pneumothorax. Impression IMPRESSION: 1. Stable appearance of right middle lobe opacities which may represent infiltrate versus atelectasis. 2. No new or worsening cardiopulmonary abnormality. I have personally reviewed the examination and initial interpretation and I agree with the findings. EVY FUENTES MD CT Chest Pulmonary Embolism w Contrast Status: None Narrative CT chest pulmonary angiogram with contrast INDICATION: Chest pain and elevated dimer CONTRAST: 55 mL intravenous Isovue-370 COMPARISON: CT chest 05/23/[address] FINDINGS: Pancreas appears unremarkable. No obvious abnormal breast tissues. Left-sided approach port catheter tip near the IVC/right atrial junction. Right sided approach port catheter tip in the right atrium. Heart size normal. Thoracic aortic caliber normal. Pulmonary artery approximately 3.0 cm in caliber borderline upper normal. Anterior mediastinal soft tissue density noted which may represent residual thymus similar to previous. No definitive isolated mass. Heart is upper normal size. No pleural or pericardial effusion. There is some reflux of contrast into the IVC as well as the middle and left hepatic veins. Calcified gallstones in the right upper abdomen within the gallbladder. No adrenal nodule. A there is a hypodense filling defect in the lateral segmental branch of the right lower lobe pulmonary artery (10/145), there is contrast beyond this area and therefore this is nonocclusive. A hypodense filling defect in right lower lobe posterior basilar segmental branches well (10/153) and again contrast gets beyond this area. Other medial basilar segmental branch emboli noted near the end of the visible artery. This is indeterminate whether this is actually occlusive or not. No saddle central embolus. Emboli also noted in left upper lobe branch vasculature (10/115). There is a paradoxical septal bowing the left ventricle. The right ventricle is not enlarged. The reflux of contrast into the hepatic veins and IVC may be related to timing as there is dense aortic filling as well. However, despite the presence of the emboli, there is no definitive evidence of right heart strain. Bone detail shows some concavity of endplates vertebrae T10 and satellite T8 and at T6 similar to recent previous. This patient has reported sickle cell disease which likely accounts for the endplate appearance a microvascular infarctions. 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 Findings mark shows multiple pulmonary nodules bilaterally mostly in the lower lobes but also in both upper lobes these appear similar in size and number and overall distribution not surprising given the very short interval. There are some punctate cavitations in some of the larger nodules. These may be potentially septic emboli comment recommend follow-up to clearing the renal neoplasm is probably less likely revealing the electronic medical record from the emergency room today. Also, the patient reportedly recently had diagnosis of endocarditis within the last 2 years no significant changes. No developing consolidations in the short interval. Impression IMPRESSION: Bilateral pulmonary emboli and bilateral pulmonary nodules, cannot exclude septic emboli the lungs given 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 No definitive evidence of right heart strain. Some bony changes again noted of sickle cell in the thoracic spine and humeral heads typical of microvascular insults related to sickle cell. EVY FUENTES MD Basic metabolic panel Status: Abnormal Result Value Ref Range Sodium 140 135 - 145 mmol/L Potassium 4.3 3.4 - 5.3 mmol/L Chloride 109 (H) 98 - 107 mmol/L Carbon Dioxide (CO2) 20 (L) 22 - 29 mmol/L Anion Gap 11 7 - 15 mmol/L Urea Nitrogen 6.7 6.0 - 20.0 mg/dL Creatinine 0.66 0.51 - 0.95 mg/dL GFR Estimate >90 >60 mL/min/1.73m2 Calcium 9.0 8.8 - 10.4 mg/dL Glucose 94 70 - 99 mg/dL HCG qualitative (blood) Status: Normal Result Value Ref Range hCG Serum Qualitative Negative Negative D dimer quantitative Status: Abnormal Result Value Ref Range D-Dimer Quantitative 0.69 (H) 0.00 - 0.50 ug/mL FEU Narrative This D-dimer assay is intended for use in conjunction with a clinical pretest probability assessment model to exclude pulmonary embolism (PE) and deep venous thrombosis (DVT) in outpatients suspectedof PE or DVT. The cut-off value is 0.50 ug/mL FEU. Troponin T, High Sensitivity Status: Normal Result Value Ref Range Troponin T, High Sensitivity <6 <=14 ng/L CBC with platelets and differential Status: Abnormal Result Value Ref Range WBC Count 12.3 (H) 4.0 - 11.0 10e3/uL RBC Count 2.58 (L) 3.80 - 5.20 10e6/uL Hemoglobin 8.5 (L) 11.7 - 15.7 g/dL Hematocrit 26.1 (L) 35.0 - 47.0 % MCV 101 (H) 78 - 100 fL MCH 32.9 26.5 - 33.0 pg MCHC 32.6 31.5 - 36.5 g/dL RDW 19.5 (H) 10.0 - 15.0 % Platelet Count 505 (H) 150 - 450 10e3/uL % Neutrophils 69 % % Lymphocytes 20 % % Monocytes 9 % % Eosinophils 1 % % Basophils 1 % % Immature Granulocytes 1 % NRBCs per 100 WBC 1 (H) <1 /100 Absolute Neutrophils 8.4 (H) 1.6 - 8.3 10e3/uL Absolute Lymphocytes 2.4 0.8 - 5.3 10e3/uL Absolute Monocytes 1.1 0.0 - 1.3 10e3/uL Absolute Eosinophils 0.1 0.0 - 0.7 10e3/uL Absolute Basophils 0.2 0.0 - 0.2 10e3/uL Absolute Immature Granulocytes 0.1 <=0.4 10e3/uL Absolute NRBCs 0.1 10e3/uL CRP inflammation Status: Normal Result Value Ref Range CRP Inflammation 4.22 <5.00 mg/L Procalcitonin Status: Normal Result Value Ref Range Procalcitonin 0.03 <0.50 ng/mL Adult Type and Screen Status: None Result Value Ref Range ABO/RH(D) A POS Antibody Screen Negative Negative SPECIMEN EXPIRATION DATE [id number] CBC with platelets differential Status: Abnormal Narrative The following orders were created for panel order CBC with platelets differential. Procedure Abnormality Status --------- ------ CBC with platelets and d...[[id number]] Abnormal Final result Please view results for these tests on the individual orders. ABO/Rh type and screen Status: None Narrative The following orders were created for panel order ABO/Rh type and screen. Procedure Abnormality Status --------- ------ Adult Type and Screen[[id number]] Final result Please view results for these tests on the individual orders. Results for orders placed or performed during the hospital encounter of 06/25/24 XR Chest 2 Views Status: None Narrative EXAM: XR CHEST 2 VIEWS LOCATION: [facility] DATE: 06/25/2024 INDICATION: Chest pain, SSC. COMPARISON: 06/16/2024. Impression IMPRESSION: Bilateral portacatheter with tips in the SVC. Mild low lung volumes. Heart size and pulmonary vascularity stable at the upper limits of normal. Mild patchy right middle lobe infiltrate oratelectasis. Basic metabolic panel Status: Abnormal Result Value Ref Range Sodium 137 135 - 145 mmol/L Potassium 3.7 3.4 - 5.3 mmol/L Chloride 107 98 - 107 mmol/L Carbon Dioxide (CO2) 22 22 - 29 mmol/L Anion Gap 8 7 - 15 mmol/L Urea Nitrogen 6.7 6.0 - 20.0 mg/dL Creatinine 0.69 0.51 - 0.95 mg/dL GFR Estimate >90 >60 mL/min/1.73m2 Calcium 8.7 (L) 8.8 - 10.4 mg/dL Glucose 87 70 - 99 mg/dL Troponin T, High Sensitivity Status: Normal Result Value Ref Range Troponin T, High Sensitivity <6 <=14 ng/L UA with Microscopic reflex to Culture Status: Abnormal Specimen: Urine, Clean Catch Result Value Ref Range Color Urine Light Yellow Colorless, Straw, Light Yellow, Yellow Appearance Urine Clear Clear Glucose Urine Negative Negative mg/dL Bilirubin Urine Negative Negative Ketones Urine Negative Negative mg/dL Specific [place] Urine 1.009 1.003 - 1.035 Blood Urine Negative Negative pH Urine 7.5 (H) 5.0 - 7.0 Protein Albumin Urine Negative Negative mg/dL Urobilinogen Urine Normal Normal, 2.0 mg/dL Nitrite Urine Negative Negative Leukocyte Esterase Urine Negative Negative RBC Urine 0 <=2 /HPF WBC Urine 0 <=5 /HPF Squamous Epithelials Urine 2 (H) <=1 /HPF Narrative Urine Culture not indicated CBC with platelets and differential Status: Abnormal Result Value Ref Range WBC Count 12.5 (H) 4.0 - 11.0 10e3/uL RBC Count 2.32 (L) 3.80 - 5.20 10e6/uL Hemoglobin 7.8 (L) 11.7 - 15.7 g/dL Hematocrit 22.7 (L) 35.0 - 47.0 % MCV 98 78 - 100 fL MCH 33.6 (H) 26.5 - 33.0 pg MCHC 34.4 31.5 - 36.5 g/dL RDW 19.2 (H) 10.0 - 15.0 % Platelet Count 451 (H) 150 - 450 10e3/uL % Neutrophils 48 % % Lymphocytes 39 % % Monocytes 10 % % Eosinophils 2 % % Basophils 1 % % Immature Granulocytes 1 % NRBCs per 100 WBC 1 (H) <1 /100 Absolute Neutrophils 6.0 1.6 - 8.3 10e3/uL Absolute Lymphocytes 4.8 0.8 - 5.3 10e3/uL Absolute Monocytes 1.2 0.0 - 1.3 10e3/uL Absolute Eosinophils 0.2 0.0 - 0.7 10e3/uL Absolute Basophils 0.1 0.0 - 0.2 10e3/uL Absolute Immature Granulocytes 0.1 <=0.4 10e3/uL Absolute NRBCs 0.2 10e3/uL EKG 12-lead, tracing only Status: None Result Value Ref Range Systolic Blood Pressure mmHg Diastolic Blood Pressure mmHg Ventricular Rate 87 BPM Atrial Rate 87 BPM [place] Interval 162 ms QRS Duration 86 ms QT 362 ms QTc 435 ms P [place] 54 degrees R AXIS 84 degrees T [place] 70 degrees Interpretation ECG Sinus rhythm Normal ECG Unconfirmed report - interpretation of this ECG is computer generated - see medical record for final interpretation Confirmed by - EMERGENCY ROOM, PHYSICIAN ([id number]), development editor Nivia Willson ([id number]) on 06/25/2024 10:56:42 PM CBC with platelets differential Status: Abnormal Narrative The following orders were created for panel order CBC with platelets differential. Procedure Abnormality Status --------- ------ CBC with platelets and d...[[id number]] Abnormal Final result Please view results for these tests on the individual orders. Medications ondansetron (ZOFRAN) injection 4 mg (has no administration in time range) heparin 25,000 units in 0.45% NaCl 250 mL ANTICOAGULANT infusion (900 Units/hr Intravenous $New Bag06/26/24 1649) hydromorphone (DILAUDID) injection 2 mg (2 mg Intravenous $Given 06/26/24 1634) lactated ringers BOLUS 1,000 mL (0 mLs Intravenous Stopped 06/26/24 1643) diphenhydrAMINE (BENADRYL) capsule 25 mg (25 mg Oral $Given 06/26/24 1436) iopamidol (ISOVUE-370) solution 55 mL (55 mLs Intravenous $Given 06/26/24 5953) sodium chloride (PF) 0.9% PF flush 82 mL (82 mLs Intravenous $Given 06/26/24 1193) heparin ANTICOAGULANT Loading dose for HIGH INTENSITY TREATMENT * Give BEFORE starting heparin infusion (4,100 Units Intravenous $Given 06/26/24 1650) Labs Ordered and Resulted from Time of ED Arrival to Time of ED Departure BASIC METABOLIC PANEL - Abnormal Result Value Sodium 140 Potassium 4.3 Chloride 109 (*) Carbon Dioxide (CO2) 20 (*) Anion Gap 11 Urea Nitrogen 6.7 Creatinine 0.66 GFR Estimate >90 Calcium 9.0 Glucose 94 D DIMER QUANTITATIVE - Abnormal D-Dimer Quantitative 0.69 (*) CBC WITH PLATELETS AND DIFFERENTIAL - Abnormal WBC Count 12.3 (*) RBC Count 2.58 (*) Hemoglobin 8.5 (*) Hematocrit 26.1 (*) MCV 101 (*) MCH 32.9 MCHC 32.6 RDW 19.5 (*) Platelet Count 505 (*) % Neutrophils 69 % Lymphocytes 20 % Monocytes 9 % Eosinophils 1 % Basophils 1 % Immature Granulocytes 1 NRBCs per 100 WBC 1 (*) Absolute Neutrophils 8.4 (*) Absolute Lymphocytes 2.4 Absolute Monocytes 1.1 Absolute Eosinophils 0.1 Absolute Basophils 0.2 Absolute Immature Granulocytes 0.1 Absolute NRBCs 0.1 HCG QUALITATIVE - Normal hCG Serum Qualitative Negative TROPONIN T, HIGH SENSITIVITY - Normal Troponin T, High Sensitivity <6 CRP INFLAMMATION - Normal CRP Inflammation 4.22 PROCALCITONIN - Normal Procalcitonin 0.03 ERYTHROCYTE SEDIMENTATION RATE AUTO TYPE AND SCREEN, ADULT ABO/RH(D) A POS Antibody Screen Negative SPECIMEN EXPIRATION DATE [id number] BLOOD CULTURE BLOOD CULTURE ABO/RH TYPE AND SCREEN CT Chest Pulmonary Embolism w Contrast Final Result IMPRESSION: Bilateral pulmonary emboli and bilateral pulmonary nodules, cannot exclude septic emboli the lungs given 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 No definitive evidence of right heart strain. Some bony changes again noted of sickle cell in the thoracic spine and humeral heads typical of microvascular insults related to sickle cell. EVY FUENTES MD Chest XR, PA & LAT Final Result IMPRESSION: 1. Stable appearance of right middle lobe opacities which may represent infiltrate versus atelectasis. 2. No new or worsening cardiopulmonary abnormality. I have personally reviewed the examination and initial interpretation and I agree with the findings. EVY FUENTES MD Critical care was not performed. Medical Decision Making The patient's presentation was of high complexity (an acute health issue posing potential threat tolife or bodily function). The patient's evaluation involved: review of external note(s) from 3+ sources (ED notes, hospitalist note, consult notes) review of 3+ test result(s) ordered prior to this encounter (CBC, BMP, troponin) ordering and/or review of 3+ test(s) in this encounter (see separate area of note for details) discussion of management or test interpretation with another health professional (see separate areaof note for details) The patient's management necessitated high risk (a decision regarding hospitalization). Assessment & Plan This is a 29-year-old female with history of sickle cell disease presenting with chest pain, concern for sickle cell pain crisis. She was afebrile and vitals are reassuring on arrival. Differential clued but limited to sickle cell pain crisis, acute chest, or other acute process. She reported the chest pain is atypical of her sickle cell pain crises. Initially labs were obtained and showed leukocytosis similar yesterday, stable anemia. D-dimer was elevated and subsequently a CTA PE study was done and concerning for pulmonary emboli. Septic emboli could not be excluded however the patient has not had any fevers, chills, or other infectious symptoms so does seem somewhat less likely. Inflammatory markers were ordered to further assess for this as well as a procalcitonin level; these all came back normal which is additionally suggesting infectious cause is less likely. The patient was started on heparin for PEs. Will plan on hospitalization for further treatment of this as well as sickle cell pain crisis. She was agreeable with this. Patient was discussed with the hospitalist accepted to the medicine service. I have reviewed the nursing notes. I have reviewed the findings, diagnosis, plan and need for follow up with the patient. New Prescriptions No medications on file Final diagnoses: Acute pulmonary embolism without acute cor pulmonale, unspecified pulmonary embolism type (H) Sickle cell pain crisis (H) [facility] 06/26/2024 Jayden Adhikari MD 06/26/24 1704 RESS FILLER documented in this encounter Miscellaneous Notes * Plan of Care - Sandy Bertrand RN - 06/29/2024 10:54 AM CST Goal Outcome Evaluation: Plan of Care Reviewed With: patient Overall Patient Progress: improvingOverall Patient Progress: improving Outcome Evaluation: Discharge home today Sandy Bertrand RN, [facility] Inpatient Care Management - FLOAT RESS FILLER * Plan of Care - Maki Schultz RN - 06/29/2024 10:44 AM CST Goal Outcome Evaluation: adequate for discharge BP 97/51 (BP Location: Right arm, Cuff Size: Adult Regular) Pulse 62 Temp 98.2 ??F (36.8 ??C) (Oral) Resp 18 SpO2 95% Plan of Care Reviewed With: patient Overall Patient Progress: no changeOverall Patient Progress: no change Outcome Evaluation: Pt alert and oriented x4. R/A. VSS. Dilaudid 2 mg scheduled given x2. Pts port was heparin locked 28 day. Pt adequate for discharge. Verbalized all instructions. RESS FILLER * Plan of Care - Lavinia Cruz RN - 06/29/2024 7:05 AM CST RN [phone] Vitals: Afebrile. VSS on RA Neuro: A&Ox4 Mobility: Pt ambulates independently. Pain/Nausea: Pain managed w/ scheduled Dilaudid q2hrs. Denies nausea. Diet: Reg diet Labs: Reviewed. LDAs: Port SL Skin/incisions: WNL; intact. Respiratory: No acute changes this shift. Cardiac: No acute changes this shift. /GI: Voiding appropriately and spontaneously. LBM date 06/28; passing flatus NEW CHANGES: No acute changes this shift. Continue to monitor patient and intervene as needed. Continue to implement Plan of Care. Notify with any concerns or changes in patient status. Lavinia Cruz RN RESS FILLER * Plan of Care - Sathish Goetz RN - 06/28/2024 11:16 AM CST Goal Outcome Evaluation: A/oX4. heparin drip discontinued , continued on scheduled pain killers for legs, chest and back pains with good results. Eating and drinking well, voiding freely and had a BM this am. BP 107/59 (BP Location: Right arm, Patient Position: Fowlers, Cuff Size: Adult Regular) Pulse 86 Temp 98.3 ??F (36.8 ??C) (Oral) Resp 20 SpO2 98% RESS FILLER * Plan of Care - Sathish Goetz RN - 06/27/2024 9:33 AM CST Goal Outcome Evaluation: A/oX4. On heparin drip, s/b Mds, continued on scheduled pain killers for legs, chest and back painswith good results. Eating well, drinking well, voiding freely and had a BM today. Wheeled for lowerextremities doppler. Urine was collected and sent to lab, also Nasal swab taken for influenza PCR. Pt was placed on special precaution until results came back negative. Heparin adjusted as per protocol. BP 107/59 (BP Location: Right arm, Patient Position: Fowlers, Cuff Size: Adult Regular) Pulse 86 Temp 98.3 ??F (36.8 ??C) (Oral) Resp 20 SpO2 98% RESS FILLER * Medication Scribe - Admission Medication History - Yennifer Edwards - 06/27/2024 4:32 AM CST Medication Scribe Admission Medication History Admission medication history is complete. The information provided in this note is only as accurateas the sources available at the time of the update. Information Source(s): Patient and CareEverywhere/SureScripts via in-person Pertinent Information: per pt+CE, pt reported taking medications on [employer] medication list as directed Changes made to [employer] medication list: Added: None Deleted: None Changed: None Allergies reviewed with patient and updates made in EHR: yes Medication History Completed By: Yennifer Edwards 06/27/2024 4:32 AM [employer]YING [employer] Med List Medication Sig Last Dose/Taking diphenhydrAMINE (BENADRYL) 25 MG tablet Take 1-2 tablets by mouth every 6 hours as needed for itching. 06/26/2024 EPINEPHrine (ANY BX GENERIC EQUIV) 0.3 MG/0.3ML injection 2-pack Inject 0.3 mg into the muscle as needed for anaphylaxis. May repeat one time in 5-15 minutes if response to initial dose is inadequate. Taking As Needed FLUoxetine (PROZAC) 10 MG capsule Take 1 capsule (10 mg) by mouth daily. 06/26/2024 folic acid (FOLVITE) 1 MG tablet Take 1 tablet (1 mg) by mouth daily. 06/26/2024 HYDROmorphone (DILAUDID) 2 MG tablet Take 2 tablets (4 mg) by mouth every 6 hours as needed for severe pain. 06/26/2024 hydroxyurea (HYDREA) 500 MG capsule Take 2 capsules (1,000 mg) by mouth 2 times daily 06/26/2024 ibuprofen (ADVIL/MOTRIN) 200 MG tablet Take 200 mg by mouth every 6 hours as needed for pain. Past Week multivitamin, therapeutic (THERA-VIT) TABS tablet Take 1 tablet by mouth daily. 06/26/2024 naloxone (NARCAN) 4 MG/0.1ML nasal spray [place] 1 spray (4 mg) into one nostril alternating nostrilsas needed for opioid reversal (for opiate overdose if not breathing and unconscious. have your family member watch video on how to use/read information sheet). every 2-3 minutes until assistance arrives Taking As Needed RESS FILLER * Plan of Care - Gordo Sykes RN - 06/27/2024 4:26 AM CST Blood pressure 116/71, pulse 63, temperature 98.6 ??F (37 ??C), temperature source Oral, resp. rate18, SpO2 100%. Neuro: A&Ox4. Cardiac: SR. VSS. Respiratory: Sating 100 on RA. GI/: Adequate urine output. Walks independently to bathroom. Nausea relieved with zofran. Diet/appetite: Tolerating regular diet. Eating well. Activity: Independent, up to bathroom and in halls. Pain: Q2 dilaudid, sickle cell crisis. Skin: No new deficits noted. LDA's: L chest port, running heparin drip for duration of shift. On 1050 units/hour of heparin. Onebolus given during shift. Last anti XA labs taken at 0530. R chest port not accessed. Pt refusing PIV, LR maintenance fluid to be started in port after heparin drip finishes, per MD. PRN zofran, atarax, and benadryl given during shift. Last scheduled dilaudid given at 0600. Last anti XA lab at 0530: 0.30, in range, no adjustments made to heparin drip, was first result in goal range, next lab scheduled in 6 hours (1235) Plan: Continue with POC. Notify primary team with changes. Continue heparin drip, monitor anti xa labs. Goal Outcome Evaluation: Plan of Care Reviewed With: patient Overall Patient Progress: no changeOverall Patient Progress: no change RESS FILLER * Provider Notification - Gordo Sykes, RN - 06/27/2024 3:35 AM MATTRESS FILLER Jovan, I've messaged your internet media planner a couple of times starting at ([phone]) and they haven't responded soI was wondering if you had some answers. Pt is refusing a PIV. Pt only has L port that is currentlyrunning heparin drip. Pt has orders for continuous LR at 100 mL/hour, I am unable to run thing at this time due to limited access. Is it okay to hold off on this? Or what would you advise? Thanks. Maria Luisalswilmer has orders for NPO. Pt stated that she thinks that she does not need to be NPO per her conversation with her team that she said that she had. Order says NPO. With last nurse, pt ordered and ate dinner. Last eating something around 2300, all before my shift. Is pt NPO? Or what are her diet orders? Thanks. RESS FILLER * Provider Notification - Gordo Sykes RN - 06/27/2024 1:27 AM MATTRESS FILLER Also, pt has orders for NPO. Pt stated that she thinks that this has passed and the order hasn't been updated. Previous nurse told me that pt ordered and ate dinner (before my shift). Is pt NPO? Or what are her diet orders? Thanks. RESS FILLER * Provider Notification - Gordo Sykes RN - 06/27/2024 1:13 AM MATTRESS FILLER Hello, pt refusing a PIV. Pt only has L port that is currently running a heparin drip. Pt has orders for continuous LR at 100mL/hour, I am unable to run this at this time due to limited access. Is fedey to hold off on this? Or what would you advise? Thanks. RESS FILLER RESS FILLER * Plan of Care - Phuong Ng RN - 06/26/2024 11:46 PM CST Shift: [id number] VS: Blood pressure 103/68, pulse 79, temperature 99.3 ??F (37.4 ??C), temperature source Oral, resp. rate 20, SpO2 95%. Pain: reports 7/10 pain, IV dilaudid given Neuro: A x O 4. PERRLA. Calls appropriately and makes needs known Cardiac: WDL. No cardiac related chest pain Respiratory: WDL. Denies SOB. O2 sat > 94% on RA GI/Diet/Appetite: Denies N/V. Regular diet : voids spontaneously LDA's: Left port heparin drip running at 900 mL/hr. Right port used for exchanges Skin: intact Activity: up ad chandler Tests/Procedures: n/A Pertinent Labs/Lab Collection: routine lab draws, heparin level draws Plan: No significant changes this shift, continue POC. RESS FILLER documented in this encounter Plan of Treatment Upcoming Encounters Date Type Department Care Team (Late st Contact Info) Description 07/10/2024 11:30 AM CDT Oncology Visit [facility] [address] [place] [address] Case Samuel MD [address] [facility] [address] [place] [address] Pending Results Name Type Priority Associated Diagnoses Date /Time Blood Culture Peripheral Blood Microbiology STAT 06/26/2024 6:46 PM MATTRESS FILLER Blood Culture Peripheral Blood Microbiology STAT 06/26/2024 6:46 PM MATTRESS FILLER documented as of this encounter Goals Goal Patient Goal Type Associated Problems Recent Progress Patient-Stated? Author Pain Management General On track( 025 12:40 PM MATTRESS FILLER) Yes Juhi Benson, SOFIA Note: Goal Statement: [...] Date/Time Associated Diagnosis Comments EXTRA TUBE STAT 06/29/2024 6:05 AM MATTRESS FILLER EXTRA PURPLE TOP TUBE STAT 06/29/2024 6:05 AM MATTRESS FILLER CBC WITH PLATELETS AND DIFFERENTIAL STAT 06/29/2024 6:05 AM MATTRESS FILLER CBC WITH PLATELETS & DIFFERENTIAL STAT 06/29/2024 6:05 AM MATTRESS FILLER COMPREHENSIVE METABOLIC PANEL STAT 06/29/2024 6:04 AM MATTRESS FILLER RBC AND PLATELET MORPHOLOGY STAT 06/28/2024 6:06 AM MATTRESS FILLER CBC WITH PLATELETS AND DIFFERENTIAL STAT 06/28/2024 6:06 AM MATTRESS FILLER LACTATE DEHYDROGENASE STAT 06/28/2024 6:06 AM MATTRESS FILLER CBC WITH PLATELETS & DIFFERENTIAL STAT 06/28/2024 6:06 AM MATTRESS FILLER RETICULOCYTE COUNT STAT 06/28/2024 6: 06 AM MATTRESS FILLER COMPREHENSIVE METABOLIC PANEL STAT 06/28/2024 6:06 AM MATTRESS FILLER BILIRUBIN DIRECT Add-On 06/28/2024 6:06 AM MATTRESS FILLER HEPARIN UNFRACTIONATED ANTI XA LEVEL STAT 06/28/2024 1:57 AM MATTRESS FILLER HEPARIN UNFRACTIONATED ANTI XA LEVEL STAT 06/27/2024 7:14 PM MATTRESS FILLER EXTRA TUBE STAT 06/27/2024 5:55 PM MATTRESS FILLER EXTRA GREEN TOP (LITHIUM HEPARIN) TUBE STAT 06/27/2024 5:55 PM MATTRESS FILLER ECHO COMPLETE Routine 06/27/2024 2:33 PM MATTRESS FILLER HEPARIN UNFRACTIONATED ANTI XA LEVEL STAT 06/27/2024 12:39 PM MATTRESS FILLER US LOWER EXTREMITY VENOUS DUPLEX BILATERAL STAT 06/27/2024 11:21 AM MATTRESS FILLER INFLUENZA A/B, RSV AND SARS-COV2 PCR STAT 06/27/2024 8:43 AM MATTRESS FILLER ROUTINE UA WITH MICROSCOPIC REFLEX TO CULTURE STAT 06/27/2024 8:12 AM MATTRESS FILLER RBC AND PLATELET MORPHOLOGY STAT 06/27/2024 5:57 AM MATTRESS FILLER CBC WITH PLATELETS AND DIFFERENTIAL Add-On 06/27/2024 5:57 AM MATTRESS FILLER TYPE AND SCREEN, ADULT Routine 5:57 AM MATTRESS FILLER CBC WITH PLATELETS & DIFFERENTIAL Add-On 06/27/2024 5:57 AM MATTRESS FILLER RETICULOCYTE COUNT Add-On 06/27/2024 5: 57 AM MATTRESS FILLER HEPATIC FUNCTION PANEL Add-On 5:57 AM MATTRESS FILLER ABO/RH TYPE AND SCREEN Add-On 5:57 AM MATTRESS FILLER BASIC METABOLIC PANEL STAT 06/27/2024 5:57 AM MATTRESS FILLER CBC WITH PLATELETS STAT 06/27/2024 5: 57 AM MATTRESS FILLER HEPARIN UNFRACTIONATED ANTI XA LEVEL STAT 06/27/2024 5:56 AM MATTRESS FILLER HEPARIN UNFRACTIONATED ANTI XA LEVEL STAT 06/26/2024 10:46 PM MATTRESS FILLER ERYTHROCYTE SEDIMENTATION RATE AUTO STAT 06/26/2024 6:46 PM MATTRESS FILLER BLOOD CULTURE STAT 06/26/2024 6:46 PM MATTRESS FILLER BLOOD CULTURE STAT 06/26/2024 6:46 PM MATTRESS FILLER EKG 12-LEAD, TRACING ONLY STAT 06/26/2024 5:[address] CHEST PULMONARY EMBOLISM W CONTRAST STAT 06/26/2024 4:15 PM MATTRESS FILLER XR CHEST 2 VIEWS STAT 06/26/2024 3:13 PM MATTRESS FILLER CBC WITH PLATELETS AND DIFFERENTIAL STAT 06/26/2024 2:42 PM MATTRESS FILLER TYPE AND SCREEN, ADULT STAT 2:42 PM MATTRESS FILLER TROPONIN T, HIGH SENSITIVITY STAT 06/26/2024 2:42 PM MATTRESS FILLER PROCALCITONIN STAT 06/26/2024 2:42 PM MATTRESS FILLER CBC WITH PLATELETS & DIFFERENTIAL STAT 06/26/2024 2:42 PM MATTRESS FILLER HCG QUALITATIVE STAT 06/26/2024 2:42 PM MATTRESS FILLER D DIMER QUANTITATIVE STAT 06/26/2024 2:42 PM MATTRESS FILLER CRP INFLAMMATION Add-On 06/26/2024 2:42 PM MATTRESS FILLER ABO/RH TYPE AND SCREEN STAT 2:42 PM MATTRESS FILLER BASIC METABOLIC PANEL STAT 06/26/2024 2:42 PM MATTRESS FILLER documented in this encounter Results * Extra Purple Top Tube (06/29/2024 6:05 AM MATTRESS FILLER) [facility] Hold Specimen [facility] 06/29/2024 7:31 AM MATTRESS FILLER U LABORATORY Blood ARTERIAL LINE / Unknown IVAD (Port) / Unknown 06/29/2024 6:05 AM MATTRESS FILLER 06/29/2024 6:19 AM MATTRESS FILLER us Alex Gillespie MD LAB - BLOOD ORDERABLES Final Re sult UU LABORATORY [facility] [place] [facility] [address] [facility] [address], [address] [place] [address] * (ABNORMAL) CBC with platelets and differential (06/29/2024 6:05 AM MATTRESS FILLER) [facility] WBC Count 12.3(H) 4.0 - 11.0 10e3/uL 06/29/2024 6:30 AM MATTRESS FILLER [facility] RBC Count 2.60(L) 3.80 - 5.20 10e6/uL 06/29/2024 6:30 AM MATTRESS FILLER [facility] Hemoglobin 8.5(L) 11.7 - 15.7 g/dL 06/29/2024 6:30 AM MATTRESS FILLER [facility] Hematocrit 25.5(L) 35.0 - 47.0 % 06/29/2024 6:30 AM MATTRESS FILLER [facility] MCV 98 78 - 100 fL 06/29/2024 6:30 AM MATTRESS FILLER [facility] MCH 32.7 26.5 - 33.0 pg 06/29/2024 6:30 AM MATTRESS FILLER [facility] MCHC 33.3 31.5 - 36.5 g/dL 06/29/2024 6:30 AM MATTRESS FILLER [facility] RDW 17.9(H) 10.0 - 15.0 % 06/29/2024 6:30 AM MATTRESS FILLER [facility] Platelet Count 438 150 - 450 10e3/uL 06/29/2024 6:30 AM MATTRESS FILLER [facility] % Neutrophils 62 % 06/29/2024 6:30 AM MATTRESS FILLER [facility] % Lymphocytes 25 % 06/29/2024 6:30 AM MATTRESS FILLER [facility] % Monocytes 9 % 06/29/2024 6:30 AM MATTRESS FILLER [facility] % Eosinophils 3 % 06/29/2024 6:30 AM MATTRESS FILLER [facility] % Basophils 1 % 06/29/2024 6:30 AM MATTRESS FILLER [facility] % Immature Granulocytes 0 % 06/29/2024 6:30 AM MATTRESS FILLER [facility] NRBCs per 100 WBC 1(H) <1 /100 025 6:30 AM MATTRESS FILLER [facility] Absolute Neutrophils 7.6 1.6 - 8.3 10e3/uL 06/29/2024 6:30 AM MATTRESS FILLER [facility] Absolute Lymphocytes 3.1 0.8 - 5.3 10e3/uL 06/29/2024 6:30 AM MATTRESS FILLER [facility] Absolute Monocytes 1.1 0.0 - 1.3 10e3/uL 06/29/2024 6:30 AM MATTRESS FILLER [facility] Absolute Eosinophils 0.4 0.0 - 0.7 10e3/uL 06/29/2024 6:30 AM MATTRESS FILLER [facility] Absolute Basophils 0.1 0.0 - 0.2 10e3/uL 06/29/2024 6:30 AM MATTRESS FILLER [facility] Absolute Immature Granulocytes 0.0 <=0.4 10e3/uL 06/29/2024 6:30 AM MATTRESS FILLER [facility] Absolute NRBCs 0.1 10e3/uL 06/29/2024 6:30 AM MATTRESS FILLER [facility] Blood ARTERIAL LINE / Unknown IVAD (Port) / Unknown 06/29/2024 6:05 AM MATTRESS FILLER 06/29/2024 6:17 AM MATTRESS FILLER us Rl Elias MD LAB - BLOOD ORDER SYD Final Result [facility] LABORATORY [facility] [place] [facility] [address] [facility], [address] [phone] [place] * (ABNORMAL) Comprehensive metabolic panel (06/29/2024 6:04 AM MATTRESS FILLER) Sodium 132(L) 135 - 145 mmol/L 06/29/2024 6:51 AM MATTRESS FILLER [facility] Potassium 4.6 3.4 - 5.3 mmol/L 06/29/2024 6:51 AM MATTRESS FILLER [facility] Carbon Dioxide (CO2) 21(L) 22 - 29 mmol/L 06/29/2024 6:51 AM MATTRESS FILLER [facility] Anion Gap 9 7 - 15 mmol/L 06/29/2024 6:51 AM MATTRESS FILLER [facility] Urea Nitrogen 14.3 6.0 - 20.0 mg/dL 06/29/2024 6:51 AM MATTRESS FILLER [facility] Creatinine 0.70 0.51 - 0.95 mg/dL 06/29/2024 6:51 AM MATTRESS FILLER [facility] GFR Estimate >90 >60 mL/min/1.7 3m2 06/29/2024 6:51 AM MATTRESS FILLER [facility] Comment:eGFR calculated usin 2020 CKD-EPI equation. Calcium 8.9 8.8 - 10.4 mg/dL 06/29/2024 6:51 AM MATTRESS FILLER [facility] Chloride 102 98 - 107 mmol/L 06/29/2024 6:51 AM MATTRESS FILLER [facility] Glucose 98 70 - 99 mg/dL 06/29/2024 6:51 AM MATTRESS FILLER [facility] Alkaline Phosphatase 106 40 - 150 U/L 06/29/2024 6:51 AM MATTRESS FILLER [facility] AST 49(H) 0 - 45 U/L 06/29/2024 6:51 AM MATTRESS FILLER [facility] ALT 44 0 - 50 U/L 06/29/2024 6:51 AM MATTRESS FILLER [facility] Protein Total 7.5 6.4 - 8.3 g/dL 06/29/2024 6:51 AM MATTRESS FILLER [facility] Albumin 4.1 3.5 - 5.2 g/dL 06/29/2024 6:51 AM MATTRESS FILLER [facility] Bilirubin Total 1.6(H) <=1.2 mg/dL 06/29/2024 6:51 AM MATTRESS FILLER [facility] Blood ARTERIAL LINE / Unknown IVAD (Port) / Unknown 06/29/2024 6:04 AM MATTRESS FILLER 06/29/2024 6:19 AM MATTRESS FILLER Rl Elias MD LAB - BLOOD ORDER SYD Final Result U LABORATORY [facility] [place] [facility] [address] [facility], [address] * (ABNORMAL) Bilirubin direct (06/28/2024 6:06 AM MATTRESS FILLER) Bilirubin Direct 0.53(H) 0.00 - 0.30 mg/dL 06/28/2024 9:50 AM MATTRESS FILLER [facility] Blood VENOUS LINE / Unknown Venipuncture / Unknown 06/28/2024 6:06 AM MATTRESS FILLER 06/28/2024 6:22 AM MATTRESS FILLER Rl Elias MD LAB - BLOOD ORDER SYD Final Result U LABORATORY [facility] [place] [facility] [address] [facility], [address] * (ABNORMAL) RBC and Platelet Morphology (06/28/2024 6:06 AM MATTRESS FILLER) RBC Morphology Confirmed RBC Indices 06/28/2024 7:15 AM MATTRESS FILLER [facility]ORY Platelet Assessment Automated Count Confirmed. Platelet morphology is normal. Automated Count Confirmed. Platelet morphology is normal. 06/28/2024 7:15 AM MATTRESS FILLER [facility] Sickle Cells Slight(A) None Seen 06/28/2024 7:15 AM MATTRESS FILLER [facility] Target Cells Moderate(A) None Seen 06/28/2024 7:15 AM MATTRESS FILLER [facility] Blood VENOUS LINE / Unknown Venipuncture / Unknown 06/28/2024 6:06 AM MATTRESS FILLER 06/28/2024 6:22 AM MATTRESS FILLER Rl Elias MD LAB - BLOOD ORDER SYD Final Result [facility] [place] [facility] [address] [facility], [address] [phone] * (ABNORMAL) CBC with platelets and differential (06/28/2024 6:06 AM MATTRESS FILLER) WBC Count 15.3(H) 4.0 - 11.0 10e3/uL 06/28/2024 7:14 AM MATTRESS FILLER [facility] RBC Count 2.49(L) 3.80 - 5.20 10e6/uL 06/28/2024 7:14 AM MATTRESS FILLER [facility] Hemoglobin 8.2(L) 11.7 - 15.7 g/dL 06/28/2024 7:14 AM MATTRESS FILLER [facility] Hematocrit 24.0(L) 35.0 - 47.0 % 06/28/2024 7:14 AM MATTRESS FILLER [facility] MCV 96 78 - 100 fL 06/28/2024 7:14 AM MATTRESS FILLER [facility] MCH 32.9 26.5 - 33.0 pg 06/28/2024 7:14 AM MATTRESS FILLER [facility] MCHC 34.2 31.5 - 36.5 g/dL 06/28/2024 7:14 AM MATTRESS FILLER [facility] RDW 18.3(H) 10.0 - 15.0 % 06/28/2024 7:14 AM MATTRESS FILLER [facility] Platelet Count 401 150 - 450 10e3/uL 06/28/2024 7:14 AM MATTRESS FILLER [facility] % Neutrophils 46 % 06/28/2024 7:14 AM MATTRESS FILLER [facility] % Lymphocytes 40 % 06/28/2024 7:14 AM MATTRESS FILLER [facility] % Monocytes 10 % 06/28/2024 7:14 AM MATTRESS FILLER [facility] % Eosinophils 4 % 06/28/2024 7:14 AM MATTRESS FILLER [facility] % Basophils 1 % 06/28/2024 7:14 AM MATTRESS FILLER [facility] % Immature Granulocytes 0 % 06/28/2024 7:14 AM MATTRESS FILLER [facility] NRBCs per 100 WBC 1(H) <1 /100 025 7:14 AM MATTRESS FILLER [facility] Absolute Neutrophils 7.0 1.6 - 8.3 10e3/uL 06/28/2024 7:14 AM MATTRESS FILLER [facility] Absolute Lymphocytes 6.0(H) 0.8 - 5.3 10e3/uL 06/28/2024 7:14 AM MATTRESS FILLER [facility] Absolute Monocytes 1.5(H) 0.0 - 1.3 10e3/uL 06/28/2024 7:14 AM MATTRESS FILLER [facility] Absolute Eosinophils 0.5 0.0 - 0.7 10e3/uL 06/28/2024 7:14 AM MATTRESS FILLER [facility] Absolute Basophils 0.2 0.0 - 0.2 10e3/uL 06/28/2024 7:14 AM MATTRESS FILLER [facility] Absolute Immature Granulocytes 0.1 <=0.4 10e3/uL 06/28/2024 7:14 AM MATTRESS FILLER [facility] Absolute NRBCs 0.1 10e3/uL 06/28/2024 7:14 AM MATTRESS FILLER [facility] Blood VENOUS LINE / Unknown Venipuncture / Unknown 06/28/2024 6:06 AM MATTRESS FILLER 06/28/2024 6:22 AM MATTRESS FILLER us Rl Elias MD LAB - BLOOD ORDER SYD Final Result [facility] LAB[facility] [place] [facility] [address] [facility], [address] [place] [address], [facility] * (ABNORMAL) Reticulocyte count (06/28/2024 6:06 AM MATTRESS FILLER) % Reticulocyte 12.7(H) 0.5 - 2.0 % 06/28/2024 6:57 AM MATTRESS FILLER [facility] Comment:x2 dilution Absolute Reticulocyte 0.316(H) 0.025 - 0.095 10e6/uL 06/28/2024 6:57 AM MATTRESS FILLER [facility] Comment:x2 dilution Blood VENOUS LINE / Unknown Venipuncture / Unknown 06/28/2024 6:06 AM MATTRESS FILLER 06/28/2024 6:22 AM MATTRESS FILLER Rl Elias MD LAB - BLOOD ORDER SYD Final Result Performing Organization Address City/[facility]/ZIP Co de Phone Number U LABORATORY [facility] Lab [address] [facility], [address] * (ABNORMAL) Lactate Dehydrogenase (06/28/2024 6:06 AM MATTRESS FILLER) Pathologist [facility] Lactate Dehydrogenase 451(H) 0 - 250 U/L 06/28/2024 6:51 AM MATTRESS FILLER [facility] Blood VENOUS LINE / Unknown Venipuncture / Unknown 06/28/2024 6:06 AM MATTRESS FILLER 06/28/2024 6:22 AM MATTRESS FILLER Rl Elias MD LAB - BLOOD ORDER SYD Final Result LABORATORY [facility] [place] [facility] [address] [facility], [address] * (ABNORMAL) Comprehensive metabolic panel (06/28/2024 6:06 AM MATTRESS FILLER) Pathologist [facility] Sodium 134(L) 135 - 145 mmol/L 06/28/2024 6:51 AM MATTRESS FILLER [facility] Potassium 4.6 3.4 - 5.3 mmol/L 06/28/2024 6:51 AM MATTRESS FILLER [facility] Carbon Dioxide (CO2) 22 22 - 29 mmol/L 06/28/2024 6:51 AM MATTRESS FILLER [facility] Anion Gap 7 7 - 15 mmol/L 06/28/2024 6:51 AM MATTRESS FILLER [facility] Urea Nitrogen 11.8 6.0 - 20.0 mg/dL 06/28/2024 6:51 AM MATTRESS FILLER [facility] Creatinine 0.70 0.51 - 0.95 mg/dL 06/28/2024 6:51 AM MATTRESS FILLER [facility] GFR Estimate >90 >60 mL/min/1.7 3m2 06/28/2024 6:51 AM MATTRESS FILLER [facility] Comment:eGFR calculated 2020 CKD-EPI equation. Calcium 8.9 8.8 - 10.4 mg/dL 06/28/2024 6:51 AM MATTRESS FILLER [facility] Chloride 105 98 - 107 mmol/L 06/28/2024 6:51 AM MATTRESS FILLER [facility] Glucose 88 70 - 99 mg/dL 06/28/2024 6:51 AM MATTRESS FILLER [facility] Alkaline Phosphatase 106 40 - 150 U/L 06/28/2024 6:51 AM MATTRESS FILLER [facility] AST 34 0 - 45 U/L 06/28/2024 6:51 AM MATTRESS FILLER [facility] ALT 33 0 - 50 U/L 06/28/2024 6:51 AM MATTRESS FILLER [facility] Protein Total 7.2 6.4 - 8.3 g/dL 06/28/2024 6:51 AM MATTRESS FILLER [facility] Albumin 4.0 3.5 - 5.2 g/dL 06/28/2024 6:51 AM MATTRESS FILLER [facility] Bilirubin Total 1.3(H) <=1.2 mg/dL 06/28/2024 6:51 AM MATTRESS FILLER [facility] Blood VENOUS LINE / Unknown Venipuncture / Unknown 06/28/2024 6:06 AM MATTRESS FILLER 06/28/2024 6:22 AM MATTRESS FILLER us Rl Elias MD LAB - BLOOD ORDER SYD Final Result U[facility] LABORATORY [facility] [place] [facility] [address] [facility], [address] [phone] * Heparin Unfractionated Anti Xa Level (06/28/2024 1:57 AM MATTRESS FILLER) [facility] Anti Xa Unfractionated Heparin 0.45 For Reference Range, See Comment IU/mL 06/28/2024 2:32 AM MATTRESS FILLER [facility] LAB[facility]ORY Blood VENOUS LINE / Unknown Venipuncture / Unknown 06/28/2024 1:57 AM MATTRESS FILLER 06/28/2024 2:17 AM MATTRESS FILLER Narrative [facility] LAB[facility]ATORY - 06/28/2024 2:32 AM MATTRESS FILLER Therapeutic Range: UFH: 0.25-0.50 IU/mL for low intensity dosing, 0.30-0.70 IU/mL for high intensity dosing DVT and PE. This test is not validated for other direct factor X inhibitors (e.g. rivaroxaban, apixaban, edoxaban, betrixaban, fondaparinux) and should not be used for monitoring of other medications. Alex Gillespie MD LAB - BLOOD ORDERABLES Final Re sult UU LABORATORY [facility] Lab [address] [facility], Room [address] [place] [phone] * Heparin Unfractionated Anti Xa Level (06/27/2024 7:14 PM MATTRESS FILLER) [facility] Anti Xa Unfractionated Heparin 0.39 For Reference Range, See Comment IU/mL 06/27/2024 7:58 PM MATTRESS FILLER [facility] Blood STRUCTURE OF RIGHT HAND / Unknown Venipuncture / Unknown 06/27/2024 7:14 PM MATTRESS FILLER 06/27/2024 7:21 PM MATTRESS FILLER Narrative [facility] LAB[facility] - 06/27/2024 7:58 PM MATTRESS FILLER Therapeutic Range: UFH: 0.25-0.50 IU/mL for low intensity dosing, 0.30-0.70 IU/mL for high intensity dosing DVT and PE. This test is not validated for other direct factor X inhibitors (e.g. rivaroxaban, apixaban, edoxaban, betrixaban, fondaparinux) and should not be used for monitoring of other medications. Octavio Rivera MD LAB - BLOOD ORDERABLES Final Res ult LABORATORY [facility] Core Lab [address] [facility], [address] [phone] * Extra Green Top ([place] Heparin) Tube (06/27/2024 5:55 PM MATTRESS FILLER) Hold Specimen JIC 06/27/2024 8:31 PM MATTRESS FILLER U LABORATORY Blood STRUCTURE OF RIGHT WRIST REGION / Unknown Venipuncture / Unknown 06/27/2024 5:55 PM MATTRESS FILLER 06/27/2024 7:22 PM MATTRESS FILLER us Alex Gillespie MD LAB - BLOOD ORDERABLES Final Re sult LABORATORY [facility] Lab [address] [facility], [address] [phone] * ECHO COMPLETE (06/27/2024 2:33 PM MATTRESS FILLER) Pathologist [facility] LVEF 55-60% CARDIOLOGY RESULTS Anatomical Region Laterality Modality Echocardiography 06/27/2024 1:58 PM MATTRESS FILLER Narrative 06/27/2024 2:51 PM MATTRESS FILLER [id number]^BRITTANEY^JERMAINE [facility] [facility] [address] [place] [address] Name: LEW HERNÁNDEZ Shawanda : 1995 Study Date: 06/27/2024 01:58 PM Age: 29 yrs Gender: Female Patient Location: [facility] Reason For Study: Pulmonary Emboli Ordering Physician: JERMAINE QUISPE Performed By: Maggy Franks RDCS BSA: 1.5 m2 Height: 61 in Weight: 112 lb BP: 120/83 mmHg Procedure Echocardiogram with two-dimensional, color and spectral Doppler. Interpretation Summary Global and regional left ventricular function is normal with an EF of 55-60%. The right ventricle is normal size. Global right ventricular function is normal. Mild tricuspid insufficiency is present. Pulmonary artery systolic pressure cannot be assessed. The inferior vena cava was normal in size with preserved respiratory variability. No significant valvular abnormalities present. Previous study not available for comparison. Left Ventricle Left ventricular size is normal. Left ventricular wall thickness is normal. Global and regional left ventricular function is normal with an EF of 55-60%. Left ventricular diastolic function is normal. Right Ventricle The right ventricle is normal size. Global right ventricular function is normal. Atria Both atria appear normal. Mitral Valve The mitral valve is normal. Trace mitral insufficiency is present. Aortic Valve On Doppler interrogation, there is no significant stenosis or regurgitation. The aortic valve is tricuspid. Tricuspid Valve Mild tricuspid insufficiency is present. The peak velocity of the tricuspid regurgitant jet is not obtainable. Pulmonary artery systolic pressure cannot be assessed. Pulmonic Valve The pulmonic valve is normal. Vessels The aorta root is normal. The inferior vena cava was normal in size with preserved respiratory variability. Pericardium No pericardial effusion is present. Miscellaneous No significant valvular abnormalities present. Compared to Previous Study Previous study not available for comparison. MMode/2D Measurements & Calculations IVSd: 1.00 cm LVIDd: 4.8 cm LVIDs: 3.1 cm LVPWd: 0.99 cm FS: 35.8 % LV mass(C)d: 166.8 grams LV mass(C)dI: 112.9 grams/m2 Ao root diam: 2.7 cm asc Aorta Diam: 2.6 cm LVOT diam: 2.1 cm LVOT area: 3.3 cm2 Ao root diam index Ht(cm/m): 1.7 Ao root diam index BSA (cm/m2): 1.8 Asc Ao diam index BSA (cm/m2): 1.7 Asc Ao diam index Ht(cm/m): 1.6 LA Volume (BP): 44.5 ml LA Volume Index (BP): 30.1 ml/m2 RV Base: 3.6 cm RWT: 0.41 TAPSE: 2.3 cm Doppler Measurements & Calculations MV E max lj: 90.1 cm/sec MV A max lj: 50.3 cm/sec MV E/A: 1.8 MV dec slope: 568.9 cm/sec2 MV dec time: 0.16 sec PA acc time: 0.14 sec E/E' av.1 Lateral E/e': 5.6 Medial E/e': 6.7 RV S Lj: 15.7 cm/sec Measurements from QLAB EDV (RV HM): 121.9 ml EF (RV HM): 59.4 % ESV (RV HM): 49.5 ml RV 4C LS (): -22.1 % RV Free Wall LS (): -23.7 % Report approved by: SALVADOR PEREA MD on 06/27/2024 02:51 PM Procedure Note Salvador Perea MD - 06/27/2024 [id number]^BRITTANEY^JERMAINE [facility] [address] [place] [id number] Name: LEW HERNÁNDEZ : 1995 Study Date: 06/27/2024 01:58 PM Age: 29 yrs Gender: Female Patient Location: [facility] Reason For Study: Pulmonary Emboli Ordering Physician: JERMAINE QUISPE Performed By: Maggy Franks RDCS BSA: 1.5 m2 Height: 61 in Weight: 112 lb BP: 120/83 mmHg Procedure Echocardiogram with two-dimensional, color and spectral Doppler. Interpretation Summary Global and regional left ventricular function is normal with an EF of55-60%. The right ventricle is normal size. Global right ventricular function is normal. Mild tricuspid insufficiency is present. Pulmonary artery systolic pressure cannot be assessed. The inferior vena cava was normal in size with preserved respiratory variability. No significant valvular abnormalities present. Previous study not available for comparison. Left Ventricle Left ventricular size is normal. Left ventricular wall thickness isnormal. Global and regional left ventricular function is normal with an EF of55-60%. Left ventricular diastolic function is normal. Right Ventricle The right ventricle is normal size. Global right ventricular function is normal. Atria Both atria appear normal. Mitral Valve The mitral valve is normal. Trace mitral insufficiency is present. Aortic Valve On Doppler interrogation, there is no significant stenosis orregurgitation. The aortic valve is tricuspid. Tricuspid Valve Mild tricuspid insufficiency is present. The peak velocity of thetricuspid regurgitant jet is not obtainable. Pulmonary artery systolic pressurecannot be assessed. Pulmonic Valve The pulmonic valve is normal. Vessels The aorta root is normal. The inferior vena cava was normal in size with preserved respiratory variability. Pericardium No pericardial effusion is present. Miscellaneous No significant valvular abnormalities present. Compared to Previous Study Previous study not available for comparison. MMode/2D Measurements & Calculations IVSd: 1.00 cm LVIDd: 4.8 cm LVIDs: 3.1 cm LVPWd: 0.99 cm FS: 35.8 % LV mass(C)d: 166.8 grams LV mass(C)dI: 112.9 grams/m2 Ao root diam: 2.7 cm asc Aorta Diam: 2.6 cm LVOT diam: 2.1 cm LVOT area: 3.3 cm2 Ao root diam index Ht(cm/m): 1.7 Ao root diam index BSA (cm/m2): 1.8 Asc Ao diam index BSA (cm/m2): 1.7 Asc Ao diam index Ht(cm/m): 1.6 LA Volume (BP): 44.5 ml LA Volume Index (BP): 30.1 ml/m2 RV Base: 3.6 cm RWT: 0.41 TAPSE: 2.3 cm Doppler Measurements & Calculations MV E max lj: 90.1 cm/sec MV A max lj: 50.3 cm/sec MV E/A: 1.8 MV dec slope: 568.9 cm/sec2 MV dec time: 0.16 sec PA acc time: 0.14 sec E/E' av.1 Lateral E/e': 5.6 Medial E/e': 6.7 RV S Lj: 15.7 cm/sec Measurements from QLAB EDV (RV HM): 121.9 ml EF (RV HM): 59.4 % ESV (RV HM): 49.5 ml RV 4C LS (): -22.1 % RV Free Wall LS (): -23.7 % Report approved by: SALVADOR PEREA MD on 06/27/2024 02:51 PM Jermaine Quispe MD CV ECHO ORDERABLES Edited Result - Final * Heparin Unfractionated Anti Xa Level (06/27/2024 12:39 PM MATTRESS FILLER) Anti Xa Unfractionated Heparin 0.29 For Reference Range, See Comment IU/mL 06/27/2024 1:22 PM MATTRESS [facility]ER [facility] Blood STRUCTURE OF LEFT HAND / Unknown Venipuncture / Unknown 06/27/2024 12:39 PM MATTRESS FILLER 06/27/2024 12:54 PM MATTRESS FILLER Narrative [facility] - 06/27/2024 1:22 PM MATTRESS FILLER Therapeutic Range: UFH: 0.25-0.50 IU/mL for low intensity dosing, 0.30-0.70 IU/mL for high intensity dosing DVT and PE. This test is not validated for other direct factor X inhibitors (e.g. rivaroxaban, apixaban, edoxaban, betrixaban, fondaparinux) and should not be used for monitoring of other medications. us Esdras Markham MD LAB - BLOOD ORDERABLES Final Res ult [facility] [place] [facility] [address] [facility], [address] [place] [address], [facility] * US Lower Extremity Venous Duplex Bilateral (06/27/2024 11:21 AM MATTRESS FILLER) Anatomical Region Laterality Modality Vascular, Thigh, Leg Ultrasound Impressions 06/27/2024 11:45 AM MATTRESS FILLER IMPRESSION: No evidence of deep venous thrombosis in either lower extremity. I have personally reviewed the examination and initial interpretation and I agree with the findings. NINOSKA QUAN MD Narrative 06/27/2024 11:45 AM MATTRESS FILLER EXAMINATION: DOPPLER VENOUS ULTRASOUND OF BILATERAL LOWER EXTREMITIES, 06/27/2024 11:21 AM COMPARISON: None. HISTORY: Evaluate for any DVTs. TECHNIQUE: Peace-scale evaluation with compression, spectral flow and color Doppler assessment of the deep venous system of both legs from groin to knee, and then at the ankles. FINDINGS: In both lower extremities, the common femoral, femoral, popliteal and posterior tibial veins demonstrate normal compressibility and blood flow. Procedure Note Ninoska Quan MD - 06/27/2024 EXAMINATION: DOPPLER VENOUS ULTRASOUND OF BILATERAL LOWER EXTREMITIES, 06/27/2024 11:21 AM COMPARISON: None. HISTORY: Evaluate for any DVTs. TECHNIQUE: Peace-scale evaluation with compression, spectral flow and color Doppler assessment of the deep venous system of both legs from groin to knee, and then at the ankles. FINDINGS: In both lower extremities, the common femoral, femoral, popliteal and posterior tibial veins demonstrate normal compressibility and blood flow. IMPRESSION: No evidence of deep venous thrombosis in either lower extremity. I have personally reviewed the examination and initial interpretation and I agree with the findings. NINOSKA QUAN MD Rl Elias MD [facility] [place] ORDERABLES Final Result * Influenza A/B, RSV and SARS-CoV2 PCR (COVID-19) Nose (06/27/2024 8:43 AM MATTRESS FILLER) Influenza A PCR Negative Negative 06/27/2024 10:03 AM MATTRESS FILLER [facility] Influenza B PCR Negative Negative 06/27/2024 10:03 AM MATTRESS FILLER [facility] RSV PCR Negative Negative 06/27/2024 10:03 AM MATTRESS FILLER [facility] SARS CoV2 PCR Negative Negative 06/27/2024 10:03 AM MATTRESS FILLER [facility] Comment:NEGATIVE: SARS-CoV-2 (COVID-19) RNA not detected, presumed negative. Swab NASAL STRUCTURE / Unknown Non-blood Collection / Unknown 06/27/2024 8:43 AM MATTRESS FILLER 06/27/2024 8:59 AM MATTRESS FILLER Narrative [facility] - 06/27/2024 10:03 AM MATTRESS FILLER Testing was performed using the Xpert Xpress CoV2/Flu/RSV Assay on the [employer] GeneXpert Instrument. This test should be ordered [...] management. This test was validated by the [facility]. These laboratories are certified under the Clinical Laboratory Improvement Amendments of 1988 (CLIA-88) as qualified to perfom high complexity laboratory testing. Rl Elias MD LAB - MICRO GENER AL ORDERABLES Final Result [facility] Inf. Diseases Diag. Lab [address] [facility], [address] [place] [address] * (ABNORMAL) UA with Microscopic reflex to Culture (06/27/2024 8:12 AM MATTRESS FILLER) Color Urine Light Yellow Colorless, Straw, Light Yellow, Yellow 06/27/2024 8:29 AM MATTRESS FILLER [facility] Appearance Urine Clear Clear 06/28/19 8:29 AM MATTRESS FILLER [facility] Glucose Urine Negative Negative mg/dL 06/27/2024 8:29 AM MATTRESS FILLER [facility] Bilirubin Urine Negative Negative 8:29 AM MATTRESS FILLER [facility] Ketones Urine Negative Negative mg/dL 06/27/2024 8:29 AM MATTRESS FILLER [facility] Specific [place] Urine 1.011 1.003 - 1.035 06/27/2024 8:29 AM MATTRESS FILLER [facility] Blood Urine Negative Negative 06/27/2024 8:29 AM MATTRESS FILLER [facility] pH Urine 7.0 5.0 - 7.0 06/27/2024 8:29 AM MATTRESS FILLER [facility] Protein Albumin Urine Negative Negative mg/dL 06/27/2024 8:29 AM MATTRESS FILLER [facility] Urobilinogen Urine Normal Normal, 2.0 mg/dL 06/27/2024 8:29 AM MATTRESS FILLER [facility] Nitrite Urine Negative Negative 06/27/2024 8:29 AM MATTRESS FILLER [facility] Leukocyte Esterase Urine Negative Negative 06/27/2024 8:29 AM MATTRESS FILLER [facility] RBC Urine 0 <=2 /HPF 06/27/2024 8:29 AM MATTRESS FILLER [facility] WBC Urine 0 <=5 /HPF 06/27/2024 8:29 AM MATTRESS FILLER [facility] Squamous Epithelials Urine 2(H) <=1 /HPF 06/27/2024 8:29 AM MATTRESS FILLER [facility] Urine URINE SPECIMEN OBTAINED BY CLEAN CATCH PROCEDURE / Unknown Non-blood Collection / Unknown 06/27/2024 8:12 AM MATTRESS FILLER 06/27/2024 8:18 AM MATTRESS FILLER Narrative [facility] - 06/27/2024 8:29 AM MATTRESS FILLER Urine Culture not indicated Rl Marly Elias MD LAB - URINE ORDER SYD Final Result [facility] [place] [facility] [address] [facility], [address] [place] [address], [facility] * Adult Type and Screen (06/27/2024 5:57 AM MATTRESS FILLER) ABO/RH(D) A POS 06/27/2024 11:54 AM MATTRESS FILLER [facility] Antibody Screen Negative Negative 06/27/2024 11:54 AM MATTRESS FILLER [facility] Comment:Current antibody scr een is negative. Patient has a history of antibody(ies). A delay in compatible red blood cells may occur. SPECIMEN EXPIRATION DATE [id number] 06/27/2024 11:54 AM MATTRESS FILLER [facility] Blood BLOOD SPECIMEN / Unknown Venipuncture / Unknown 06/27/2024 5:57 AM MATTRESS FILLER 06/27/2024 6:07 AM MATTRESS FILLER Rl Elias MD LAB - BLOOD BANK TEST ORDER Final Result Performing Organization Address [facility] Co de Phone Number U BLOOD BANK [address] [place] [address] * (ABNORMAL) RBC and Platelet Morphology (06/27/2024 5:57 AM MATTRESS FILLER) RBC Morphology Confirmed RBC Indices 06/27/2024 10:33 AM MATTRESS FILLER [facility] Platelet Assessment Automated Count Confirmed. Platelet morphology is normal. Automated Count Confirmed. Platelet morphology is normal. 06/27/2024 10:33 AM MATTRESS FILLER [facility] Mary Cells Moderate(A) None Seen 06/27/2024 10:33 AM MATTRESS FILLER [facility] Polychromasia Slight(A) None Seen 06/27/2024 10:33 AM MATTRESS FILLER [facility] Sickle Cells Slight(A) None Seen 06/27/2024 10:33 AM MATTRESS FILLER [facility] Target Cells Slight(A) None Seen 06/27/2024 10:33 AM MATTRESS FILLER [facility] Blood BLOOD SPECIMEN / Unknown Venipuncture / Unknown 06/27/2024 5:57 AM MATTRESS FILLER 06/27/2024 6:07 AM MATTRESS FILLER Rl Elias MD LAB - BLOOD ORDER SYD Final Result Performing Organization Address City/[facility]/ZIP Co de Phone Number [facility] [place] [facility] [address] [facility], [address] [place] [address] * (ABNORMAL) CBC with platelets and differential (06/27/2024 5:57 AM MATTRESS FILLER) WBC Count 17.8(H) 4.0 - 11.0 10e3/uL 06/27/2024 10:36 AM MATTRESS FILLER [facility] Comment:Albumin treated bloo d due to Smudge Cells. RBC Count 2.60(L) 3.80 - 5.20 10e6/uL 06/27/2024 10:36 AM MATTRESS FILLER [facility] Hemoglobin 8.5(L) 11.7 - 15.7 g/dL 06/27/2024 10:36 AM MATTRESS FILLER [facility] Hematocrit 25.9(L) 35.0 - 47.0 % 06/27/2024 10:36 AM MATTRESS FILLER [facility] MCV 100 78 - 100 fL 06/27/2024 10:36 AM MATTRESS FILLER [facility] MCH 32.7 26.5 - 33.0 pg 06/27/2024 10:36 AM MATTRESS FILLER [facility] MCHC 32.8 31.5 - 36.5 g/dL 06/27/2024 10:36 AM MATTRESS FILLER [facility] RDW 19.2(H) 10.0 - 15.0 % 06/27/2024 10:36 AM MATTRESS FILLER [facility] Platelet Count 469(H) 150 - 450 10e3/uL 06/27/2024 10:36 AM MATTRESS FILLER [facility] % Neutrophils 44 % 06/27/2024 10:36 AM MATTRESS FILLER [facility] % Lymphocytes 46 % 06/27/2024 10:36 AM MATTRESS FILLER [facility] % Monocytes 7 % 06/27/2024 10:36 AM MATTRESS FILLER [facility] % Eosinophils 3 % 06/27/2024 10:36 AM MATTRESS FILLER [facility] % Basophils 1 % 06/27/2024 10:36 AM MATTRESS FILLER [facility] % Immature Granulocytes 0 % 06/27/2024 10:36 AM MATTRESS FILLER [facility] NRBCs per 100 WBC 1(H) <1 /100 025 10:36 AM MATTRESS FILLER [facility] Absolute Neutrophils 7.6 1.6 - 8.3 10e3/uL 06/27/2024 10:36 AM MATTRESS FILLER [facility] Absolute Lymphocytes 8.0(H) 0.8 - 5.3 10e3/uL 06/27/2024 10:36 AM MATTRESS FILLER [facility] Absolute Monocytes 1.2 0.0 - 1.3 10e3/uL 06/27/2024 10:36 AM MATTRESS FILLER [facility] Absolute Eosinophils 0.5 0.0 - 0.7 10e3/uL 06/27/2024 10:36 AM MATTRESS FILLER [facility] Absolute Basophils 0.2 0.0 - 0.2 10e3/uL 06/27/2024 10:36 AM MATTRESS FILLER [facility] Absolute Immature Granulocytes 0.1 <=0.4 10e3/uL 06/27/2024 10:36 AM MATTRESS FILLER [facility] Absolute NRBCs 0.2 10e3/uL 06/27/2024 10:36 AM MATTRESS FILLER [facility] Blood BLOOD SPECIMEN / Unknown Venipuncture / Unknown 06/27/2024 5:57 AM MATTRESS FILLER 06/27/2024 6:07 AM MATTRESS FILLER Rl Elias MD LAB - BLOOD ORDER SYD Final Result Performing Organization Address City/[facility]/ZIP Co de Phone Number [facility] [place] [facility] [address] [facility], [address] * (ABNORMAL) Reticulocyte count (06/27/2024 5:57 AM MATTRESS FILLER) % Reticulocyte 15.5(H) 0.5 - 2.0 % 06/27/2024 9:16 AM MATTRESS FILLER [facility] Comment:x2 dilution Absolute Reticulocyte 0.404(H) 0.025 - 0.095 10e6/uL 06/27/2024 9:16 AM MATTRESS FILLER [facility] Comment:x2 dilution Blood BLOOD SPECIMEN / Unknown Venipuncture / Unknown 06/27/2024 5:57 AM MATTRESS FILLER 06/27/2024 6:07 AM MATTRESS FILLER Rl Elias MD LAB - BLOOD ORDER SYD Final Result [facility] [place] [facility] [address] [facility], [address] * (ABNORMAL) Hepatic panel (06/27/2024 5:57 AM MATTRESS FILLER) Protein Total 7.4 6.4 - 8.3 g/dL 06/27/2024 9:06 AM MATTRESS FILLER [facility] Albumin 4.0 3.5 - 5.2 g/dL 06/27/2024 9:06 AM MATTRESS FILLER [facility] Bilirubin Total 1.2 <=1.2 mg/dL 06/27/2024 9:06 AM MATTRESS FILLER [facility] Alkaline Phosphatase 113 40 - 150 U/L 06/27/2024 9:06 AM MATTRESS FILLER [facility] AST 41 0 - 45 U/L 06/27/2024 9:06 AM MATTRESS FILLER [facility] ALT 35 0 - 50 U/L 06/27/2024 9:06 AM MATTRESS FILLER [facility] Bilirubin Direct 0.45(H) 0.00 - 0.30 mg/dL 06/27/2024 9:06 AM MATTRESS FILLER [facility] Blood BLOOD SPECIMEN / Unknown Venipuncture / Unknown 06/27/2024 5:57 AM MATTRESS FILLER 06/27/2024 6:06 AM MATTRESS FILLER us Rl Elias MD LAB - BLOOD ORDER SYD Final Result [facility] [place] [facility] [address] [facility], [address] [place] [phone] * (ABNORMAL) CBC with platelets (06/27/2024 5:57 AM MATTRESS FILLER) WBC Count 17.8(H) 4.0 - 11.0 10e3/uL 06/27/2024 6:16 AM MATTRESS FILLER [facility] RBC Count 2.60(L) 3.80 - 5.20 10e6/uL 06/27/2024 6:16 AM MATTRESS FILLER [facility] Hemoglobin 8.5(L) 11.7 - 15.7 g/dL 06/27/2024 6:16 AM MATTRESS FILLER [facility] Hematocrit 25.9(L) 35.0 - 47.0 % 06/27/2024 6:16 AM MATTRESS FILLER [facility] MCV 100 78 - 100 fL 06/27/2024 6:16 AM MATTRESS FILLER [facility] MCH 32.7 26.5 - 33.0 pg 06/27/2024 6:16 AM MATTRESS FILLER [facility] MCHC 32.8 31.5 - 36.5 g/dL 06/27/2024 6:16 AM MATTRESS FILLER [facility] RDW 19.2(H) 10.0 - 15.0 % 06/27/2024 6:16 AM MATTRESS FILLER [facility] Platelet Count 469(H) 150 - 450 10e3/uL 06/27/2024 6:16 AM MATTRESS FILLER [facility] Blood BLOOD SPECIMEN / Unknown Venipuncture / Unknown 06/27/2024 5:57 AM MATTRESS FILLER 06/27/2024 6:07 AM MATTRESS FILLER Jermaine Quispe MD LAB - BLOOD ORDERABLES Final Res ult [facility] [place] [facility] [address] [facility], [address] [place] [address] * (ABNORMAL) Basic metabolic panel (06/27/2024 5:57 AM MATTRESS FILLER) Sodium 136 135 - 145 mmol/L 06/27/2024 7:08 AM MATTRESS FILLER [facility] Potassium 4.2 3.4 - 5.3 mmol/L 06/27/2024 7:08 AM MATTRESS FILLER [facility] Chloride 104 98 - 107 mmol/L 06/27/2024 7:08 AM MATTRESS FILLER [facility] Carbon Dioxide (CO2) 23 22 - 29 mmol/L 06/27/2024 7:08 AM MATTRESS FILLER [facility] Anion Gap 9 7 - 15 mmol/L 06/27/2024 7:08 AM MATTRESS FILLER [facility] Urea Nitrogen 8.0 6.0 - 20.0 mg/dL 06/27/2024 7:08 AM MATTRESS FILLER [facility] Creatinine 0.74 0.51 - 0.95 mg/dL 06/27/2024 7:08 AM MATTRESS FILLER [facility] GFR Estimate >90 >60 mL/min/1.7 3m2 06/27/2024 7:08 AM MATTRESS FILLER [facility] Comment:eGFR calculated us2020 CKD-EPI equation. Calcium 8.7(L) 8.8 - 10.4 mg/dL 06/27/2024 7:08 AM MATTRESS FILLER [facility] Glucose 90 70 - 99 mg/dL 06/27/2024 7:08 AM MATTRESS FILLER [facility] Blood BLOOD SPECIMEN / Unknown Venipuncture / Unknown 06/27/2024 5:57 AM MATTRESS FILLER 06/27/2024 6:06 AM MATTRESS FILLER Jermaine Quispe MD LAB - BLOOD ORDERABLES Final Res ult Performing Organization Address City/[facility]/ZIP Co de Phone Number U LABORATORY [facility] [address] [facility], [address] * Heparin Unfractionated Anti Xa Level (06/27/2024 5:56 AM MATTRESS FILLER) Anti Xa Unfractionated Heparin 0.30 For Reference Range, See Comment IU/mL 06/27/2024 6:29 AM MATTRESS FILLER [facility] Blood STRUCTURE OF RIGHT HAND / Unknown Venipuncture / Unknown 06/27/2024 5:56 AM MATTRESS FILLER 06/27/2024 6:07 AM MATTRESS FILLER Narrative [facility] - 06/27/2024 6:29 AM MATTRESS FILLER Therapeutic Range: UFH: 0.25-0.50 IU/mL for low intensity dosing, 0.30-0.70 IU/mL for high intensity dosing DVT and PE. This test is not validated for other direct factor X inhibitors (e.g. rivaroxaban, apixaban, edoxaban, betrixaban, fondaparinux) and should not be used for monitoring of other medications. us Esdras Markham MD LAB - BLOOD ORDERABLES Final Res ult Performing Organization Address City/[facility] Co de Phone Number LABORATORY [facility] [address] [facility], [address] [place] [address] * Heparin Unfractionated Anti Xa Level (06/26/2024 10:46 PM MATTRESS FILLER) Anti Xa Unfractionated Heparin 0.28 For Reference Range, See Comment IU/mL 06/26/2024 11:13 PM MATTRESS FILLER [facility] Blood STRUCTURE OF RIGHT HAND / Unknown Venipuncture / Unknown 06/26/2024 10:46 PM MATTRESS FILLER 06/26/2024 10:55 PM MATTRESS FILLER Narrative [facility] - 06/26/2024 11:13 PM MATTRESS FILLER Therapeutic Range: UFH: 0.25-0.50 IU/mL for low intensity dosing, 0.30-0.70 IU/mL for high intensity dosing DVT and PE. This test is not validated for other direct factor X inhibitors (e.g. rivaroxaban, apixaban, edoxaban, betrixaban, fondaparinux) and should not be used for monitoring of other medications. Jermaine Quispe MD LAB - BLOOD ORDERABLES Final Res ult Performing Organization Address City/[facility] Co de Phone Number U [facility]ORY [facility] [address] [facility], [address] * (ABNORMAL) Erythrocyte sedimentation rate auto (06/26/2024 6:46 PM MATTRESS FILLER) Pathologist [facility] Erythrocyte Sedimentation Rate 24(H) 0 - 20 mm/hr 06/26/2024 7:28 PM MATTRESS FILLER [facility] Blood BLOOD SPECIMEN / Unknown Venipuncture / Unknown 06/26/2024 6:46 PM MATTRESS FILLER 06/26/2024 7:14 PM MATTRESS FILLER Jermaine Quispe MD LAB - BLOOD ORDERABLES Final Res ult Performing Organization Address [facility] de Phone Number LABORATORY [facility] Lab [address] [facility], [facility] [address] [phone] * EKG 12 lead (06/26/2024 5:19 PM MATTRESS FILLER) Systolic Blood Pressure mmHg RADIOLOGY RESULTS Diastolic Blood Pressure mmHg RADIOLOGY RESULTS Ventricular Rate 79 BPM RAD IOLOGY RESULTS Atrial Rate 79 BPM RADIOLOG Y RESULTS AZ Interval 160 ms RADIOLOG Y RESULTS QRS Duration 78 ms RADIOLO GY RESULTS QT 380 ms RADIOLOGY RESULTS QTc 435 ms RADIOLOGY RESULTS P [place] 39 degrees RADIOLOGY RESULTS R AXIS 42 degrees RADIOLOGY RESULTS T [place] 18 degrees RADIOLOGY RESULTS Interpretation ECG Sinus rhythm Normal ECG Unconfirmed report - interpretation of this ECG is computer generated - see medical record for final interpretation Confirmed by - EMERGENCY ROOM, PHYSICIAN ([id number]), development editor Woody Patten ([id number]) on 06/27/2024 6:46:34 AM RADIOLOGY RESULTS 06/26/2024 5:19 PM MATTRESS FILLER 06/27/2024 6:46 AM MATTRESS FILLER Jayden Adhikari MD ECG ORDERABLES Edited Resul t - Final RADIOLOGY RESULTS * CT Chest Pulmonary Embolism w Contrast (06/26/2024 4:15 PM MATTRESS FILLER) Anatomical Region Laterality Modality Chest, SUBRAD CT BODY, UMP CT CHEST Computed Tomography Impressions 06/26/2024 4:29 PM MATTRESS FILLER IMPRESSION: Bilateral pulmonary emboli and bilateral pulmonary nodules, cannot exclude septic emboli the lungs given 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 No definitive evidence of right heart strain. Some bony changes again noted of sickle cell in the thoracic spine and humeral heads typical of microvascular insults related to sickle cell. EVY FUENTES MD Narrative 06/26/2024 4:[address] chest pulmonary angiogram with contrast INDICATION: Chest pain and elevated dimer CONTRAST: 55 mL intravenous [id number] COMPARISON: CT chest 05/23/[address] FINDINGS: Pancreas appears unremarkable. No obvious abnormal breast tissues. Left-sided approach port catheter tip near the IVC/right atrial junction. Right sided approach port catheter tip in the right atrium. Heart size normal. Thoracic aortic caliber normal. Pulmonary artery approximately 3.0 cm in caliber borderline upper normal. Anterior mediastinal soft tissue density noted which may represent residual thymus similar to previous. No definitive isolated mass. Heart is upper normal size. No pleural or pericardial effusion. There is some reflux of contrast into the IVC as well as the middle and left hepatic veins. Calcified gallstones in the right upper abdomen within the gallbladder. No adrenal nodule. A there is a hypodense filling defect in the lateral segmental branch of the right lower lobe pulmonary artery (10/145), there is contrast beyond this area and therefore this is nonocclusive. A hypodense filling defect in right lower lobe posterior basilar segmental branches well (10/153) and again contrast gets beyond this area. Other medial basilar segmental branch emboli noted near the end of the visible artery. This is indeterminate whether this is actually occlusive or not. No saddle central embolus. Emboli also noted in left upper lobe branch vasculature (/115). There is a paradoxical septal bowing the left ventricle. The right ventricle is not enlarged. The reflux of contrast into the hepatic veins and IVC may be related to timing as there is dense aortic filling as well. However, despite the presence of the emboli, there is no definitive evidence of right heart strain. Bone detail shows some concavity of endplates vertebrae T10 and satellite T8 and at T6 similar to recent previous. This patient has reported sickle cell disease which likely accounts for the endplate appearance a microvascular infarctions. 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 Findings mark shows multiple pulmonary nodules bilaterally mostly in the lower lobes but also in both upper lobes these appear similar in size and number and overall distribution not surprising given the very short interval. There are some punctate cavitations in some of the larger nodules. These may be potentially septic emboli comment recommend follow-up to clearing the renal neoplasm is probably less likely revealing the electronic medical record from the emergency room today. Also, the patient reportedly recently had diagnosis of endocarditis within the last 2 years no significant changes. No developing consolidations in the short interval. Procedure Note Evy Fuentes MD - 06/26/2024 CT chest pulmonary angiogram with contrast INDICATION: Chest pain and elevated dimer CONTRAST: 55 mL intravenous [id number] COMPARISON: CT chest 05/23/[address] FINDINGS: Pancreas appears unremarkable. No obvious abnormal breast tissues. Left-sided approach port catheter tip near the IVC/right atrial junction. Right sided approach port catheter tip in the right atrium. Heart size normal. Thoracic aortic caliber normal. Pulmonary artery approximately 3.0 cm in caliber borderline upper normal. Anterior mediastinal soft tissue density noted which may represent residual thymus similar to previous. No definitive isolated mass. Heart is upper normal size. No pleural or pericardial effusion. There is some reflux of contrast into the IVC as well as the middle and left hepatic veins. Calcified gallstones in the right upper abdomen within the gallbladder. No adrenal nodule. A there is a hypodense filling defect in the lateral segmental branch of the right lower lobe pulmonary artery (10/145), there is contrast beyond this area and therefore this is nonocclusive. A hypodense filling defect in right lower lobe posterior basilar segmental branches well (10/153) and again contrast gets beyond this area. Other medial basilar segmental branch emboli noted near the end of the visible artery. This is indeterminate whether this is actually occlusive or not. No saddle central embolus. Emboli also noted in left upper lobe branch vasculature (10/115). There is a paradoxical septal bowing the left ventricle. The right ventricle is not enlarged. The reflux of contrast into the hepatic veins and IVC may be related to timing as there is dense aortic filling as well. However, despite the presence of the emboli, there is no definitive evidence of right heart strain. Bone detail shows some concavity of endplates vertebrae T10 and satellite T8 and at T6 similar to recent previous. This patient has reported sickle cell disease which likely accounts for the endplate appearance a microvascular infarctions. 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 Findings mark shows multiple pulmonary nodules bilaterally mostly in the lower lobes but also in both upper lobes these appear similar in size and number and overall distribution not surprising given the very short interval. There are some punctate cavitations in some of the larger nodules. These may be potentially septic emboli comment recommend follow-up to clearing the renal neoplasm is probably less likely revealing the electronic medical record from the emergency room today. Also, the patient reportedly recently had diagnosis of endocarditis within the last 2 years no significant changes. No developing consolidations in the short interval. IMPRESSION: Bilateral pulmonary emboli and bilateral pulmonary nodules, cannot exclude septic emboli the lungs given 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 No definitive evidence of right heart strain. Some bony changes again noted of sickle cell in the thoracic spine and humeral heads typical of microvascular insults related to sickle cell. EVY FUENTES MD us Jayden Adhkiari MD IMG CT ORDERABLES Final Resu lt * Chest XR, PA & LAT (06/26/2024 3:13 PM MATTRESS FILLER) Anatomical Region Laterality Modality Chest Digital Radiogra phy Impressions 06/26/2024 3:24 PM MATTRESS FILLER IMPRESSION: 1. Stable appearance of right middle lobe opacities which may represent infiltrate versus atelectasis. 2. No new or worsening cardiopulmonary abnormality. I have personally reviewed the examination and initial interpretation and I agree with the findings. EVY FUENTES MD Narrative 06/26/2024 3:24 PM MATTRESS FILLER EXAM: XR CHEST 2 VIEWS 06/26/2024 3:13 PM HISTORY: chest pain COMPARISON: History of 06/25/2024 FINDINGS: Stable bilateral port catheters with tips in the mid/lower SVC. Stable mildly low lung volumes. Stable cardiac silhouette. Trachea is midline. Unchanged appearance of patchy right middle lobe infiltrate versus atelectasis. No new or worsening opacity. No significant pleural effusion. No appreciable pneumothorax. Procedure Note Evy Fuentes MD - 06/26/2024 EXAM: XR CHEST 2 VIEWS 06/26/2024 3:13 PM HISTORY: chest pain COMPARISON: History of 06/25/2024 FINDINGS: Stable bilateral port catheters with tips in the mid/lower SVC. Stable mildly low lung volumes. Stable cardiac silhouette. Trachea is midline. Unchanged appearance of patchy right middle lobe infiltrate versus atelectasis. No new or worsening opacity. No significant pleural effusion. No appreciable pneumothorax. IMPRESSION: 1. Stable appearance of right middle lobe opacities which may represent infiltrate versus atelectasis. 2. No new or worsening cardiopulmonary abnormality. I have personally reviewed the examination and initial interpretation and I agree with the findings. EVY FUENTES MD Jayden Adhikari MD [facility] ORDER SYD Final Result * Procalcitonin (06/26/2024 2:42 PM MATTRESS FILLER) Procalcitonin 0.03 <0.50 ng/mL 06/26/2024 5:02 PM MATTRESS FILLER [facility] Comment: Interpretation and Recommendations <0.5 ng/mL: Systemic bacterial infection unlikely. Local bacterial infection is possible. 0.5-1.99 ng/mL: Systemic bacterial infection possible, but various other conditions are known to induce PCT as well. >=2.00 ng/mL: Systemic bacterial infection likely, unless other causes are known. Decision to start antibiotics should not be based on procalcitonin level alone. See Procalcitonin Guidance document for more details. [email or web address] Factors that may affect PCT levels (not all-inclusive): - Increased PCT level Severe trauma/saravia Invasive surgery Cooling therapy after cardiac arrest/surgery Treatment with agents which stimulate cytokines Acute kidney injury Chronic kidney disease and end stage renal disease Acute graft vs host disease Non-specific shock causing decreased organ perfusion and/or infarction - Normal or unchanged PCT level Early in infections (if low and infection is suspected, repeating in 6-12 hours is recommended) Chronic infections (endocarditis, osteomyelitis, prosthetic device/graft infections) Localized infections (cellulitis, wound infections, intra-abdominal abscess) Note: PCT has not been extensively studied in /, pediatrics, severe immunosuppression, and cystic fibrosis. Blood BLOOD SPECIMEN / Unknown Venipuncture / Unknown 06/26/2024 2:42 PM MATTRESS FILLER 06/26/2024 2:52 PM MATTRESS FILLER Jayden Adhikari MD LAB - BLOOD ORDERABLES Final Result [facility] [place] [facility] [address] [facility], [address] * CRP inflammation (06/26/2024 2:42 PM MATTRESS FILLER) [facility] CRP Inflammation 4.22 <5.00 mg/L 06/27/19 25 5:02 PM MATTRESS FILLER LABORATORY Blood BLOOD SPECIMEN / Unknown Venipuncture / Unknown 06/26/2024 2:42 PM MATTRESS FILLER 06/26/2024 2:52 PM MATTRESS FILLER Jayden Adhikari MD LAB - BLOOD ORDERABLES Final Result LABORATORY [facility] [place] [facility] [address] [facility], [address] * Adult Type and Screen (06/26/2024 2:42 PM MATTRESS FILLER) Pathologist [facility] ABO/RH(D) A POS 06/26/2024 2:30 PM MATTRESS FILLER [facility] Antibody Screen Negative Negative 06/26/2024 2:30 PM MATTRESS FILLER [facility] Comment:Current antibody scr een is negative. Patient has a history of antibody(ies). A delay in compatible red blood cells may occur. SPECIMEN EXPIRATION DATE [id number] 06/26/2024 2:30 PM MATTRESS FILLER [facility] Blood BLOOD SPECIMEN / Unknown Venipuncture / Unknown 06/26/2024 2:42 PM MATTRESS FILLER 06/26/2024 2:50 PM MATTRESS FILLER Jayden Adhikari MD LAB - BLOOD BANK TEST ORDER Final Result [facility] B[facility] [address] [place] [address] [place] * (ABNORMAL) CBC with platelets and differential (06/26/2024 2:42 PM MATTRESS FILLER) WBC Count 12.3(H) 4.0 - 11.0 10e3/uL 06/26/2024 3:23 PM MATTRESS FILLER [facility] RBC Count 2.58(L) 3.80 - 5.20 10e6/uL 06/26/2024 3:23 PM MATTRESS FILLER [facility] Hemoglobin 8.5(L) 11.7 - 15.7 g/dL 06/26/2024 3:23 PM MATTRESS FILLER [facility] Hematocrit 26.1(L) 35.0 - 47.0 % 06/26/2024 3:23 PM MATTRESS FILLER [facility] MCV 101(H) 78 - 100 fL 06/26/2024 3:23 PM MATTRESS FILLER [facility] MCH 32.9 26.5 - 33.0 pg 06/26/2024 3:23 PM MATTRESS FILLER [facility] MCHC 32.6 31.5 - 36.5 g/dL 06/26/2024 3:23 PM MATTRESS FILLER [facility] RDW 19.5(H) 10.0 - 15.0 % 06/26/2024 3:23 PM MATTRESS FILLER [facility] Platelet Count 505(H) 150 - 450 10e3/uL 06/26/2024 3:23 PM MATTRESS FILLER [facility] % Neutrophils 69 % 06/26/2024 3:23 PM MATTRESS FILLER [facility] % Lymphocytes 20 % 06/26/2024 3:23 PM MATTRESS FILLER [facility] % Monocytes 9 % 06/26/2024 3:23 PM MATTRESS FILLER [facility] % Eosinophils 1 % 06/26/2024 3:23 PM MATTRESS FILLER [facility] % Basophils 1 % 06/26/2024 3:23 PM MATTRESS FILLER [facility] % Immature Granulocytes 1 % 06/26/2024 3:23 PM MATTRESS FILLER [facility] NRBCs per 100 WBC 1(H) <1 /100 025 3:23 PM MATTRESS FILLER [facility] Absolute Neutrophils 8.4(H) 1.6 - 8.3 10e3/uL 06/26/2024 3:23 PM MATTRESS FILLER [facility] Absolute Lymphocytes 2.4 0.8 - 5.3 10e3/uL 06/26/2024 3:23 PM MATTRESS FILLER [facility] Absolute Monocytes 1.1 0.0 - 1.3 10e3/uL 06/26/2024 3:23 PM MATTRESS FILLER [facility] Absolute Eosinophils 0.1 0.0 - 0.7 10e3/uL 06/26/2024 3:23 PM MATTRESS FILLER [facility] Absolute Basophils 0.2 0.0 - 0.2 10e3/uL 06/26/2024 3:23 PM MATTRESS FILLER [facility] Absolute Immature Granulocytes 0.1 <=0.4 10e3/uL 06/26/2024 3:23 PM MATTRESS FILLER [facility] Absolute NRBCs 0.1 10e3/uL 06/26/2024 3:23 PM MATTRESS FILLER [facility] Blood BLOOD SPECIMEN / Unknown Venipuncture / Unknown 06/26/2024 2:42 PM MATTRESS FILLER 06/26/2024 2:52 PM MATTRESS FILLER us Jayden Adhikari MD LAB - BLOOD ORDERABLES Final Result [facility] [place] [facility] [address] [facility], [address] [place] [address] [place] * Troponin T, High Sensitivity (06/26/2024 2:42 PM MATTRESS FILLER) [facility] Troponin T, High Sensitivity <6 <=14 ng/L 06/26/2024 3:24 PM MATTRESS FILLER [facility] Comment: Either a High Sensitivity [...] BLOOD SPECIMEN / Unknown Venipuncture / Unknown 06/26/2024 2:42 PM MATTRESS FILLER 06/26/2024 2:52 PM MATTRESS FILLER Jayden Adhikari MD LAB - BLOOD ORDERABLES Final Result Performing Organization Address City/[facility]/ZIP Co de Phone Number [facility] [address] [facility], [address] [phone] [place] * (ABNORMAL) D dimer quantitative (06/26/2024 2:42 PM MATTRESS FILLER) D-Dimer Quantitative 0.69(H) 0.00 - 0.50 ug/mL FEU 06/26/2024 3:13 PM MATTRESS FILLER [facility] Blood BLOOD SPECIMEN / Unknown Venipuncture / Unknown 06/26/2024 2:42 PM MATTRESS FILLER 06/26/2024 2:52 PM MATTRESS FILLER Narrative [facility] - 06/26/2024 3:13 PM MATTRESS FILLER This D-dimer assay is intended for use in conjunction with a clinical pretest probability assessment model to exclude pulmonary embolism (PE) and deep venous thrombosis (DVT) in outpatients suspected of PE or DVT. The cut-off value is 0.50 ug/mL FEU. Jayden Adhikari MD LAB - BLOOD ORDERABLES Final Result Performing Organization Address [facility]/ZIP Co de Phone Number [facility] [place] [facility] [address] [facility], [address] * HCG qualitative (blood) (06/26/2024 2:42 PM MATTRESS FILLER) Pathologist [facility] hCG Serum Qualitative Negative Negative JARET 06/26/2024 3:04 PM MATTRESS FILLER [facility] Comment:This test is for scr eening purposes. Results should be interpreted along with the clinical picture. Confirmation testing is available if warranted by ordering [id number], HCG Quantitative . Blood BLOOD SPECIMEN / Unknown Venipuncture / Unknown 06/26/2024 2:42 PM MATTRESS FILLER 06/26/2024 2:50 PM MATTRESS FILLER Jayden Adhikari MD LAB - BLOOD ORDERABLES Final Result [facility] [place] [facility] [address] [facility], [address] * (ABNORMAL) Basic metabolic panel (06/26/2024 2:42 PM MATTRESS FILLER) [facility] Sodium 140 135 - 145 mmol/L 06/26/2024 3:24 PM MATTRESS FILLER [facility] Potassium 4.3 3.4 - 5.3 mmol/L 06/26/2024 3:24 PM MATTRESS FILLER [facility] Chloride 109(H) 98 - 107 mmol/L 06/26/2024 3:24 PM MATTRESS FILLER [facility] Carbon Dioxide (CO2) 20(L) 22 - 29 mmol/L 06/26/2024 3:24 PM MATTRESS FILLER [facility] Anion Gap 11 7 - 15 mmol/L 06/26/2024 3:24 PM MATTRESS FILLER [facility] Urea Nitrogen 6.7 6.0 - 20.0 mg/dL 06/26/2024 3:24 PM MATTRESS FILLER [facility] Creatinine 0.66 0.51 - 0.95 mg/dL 06/26/2024 3:24 PM MATTRESS FILLER [facility] GFR Estimate >90 >60 mL/min/1.7 3m2 06/26/2024 3:24 PM MATTRESS FILLER [facility] Comment:eGFR calculated usin 2020 CKD-EPI equation. Calcium 9.0 8.8 - 10.4 mg/dL 06/26/2024 3:24 PM MATTRESS FILLER [facility] Glucose 94 70 - 99 mg/dL 06/26/2024 3:24 PM MATTRESS FILLER [facility] Blood BLOOD SPECIMEN / Unknown Venipuncture / Unknown 06/26/2024 2:42 PM MATTRESS FILLER 06/26/2024 2:52 PM MATTRESS FILLER Jayden Adhikari MD LAB - BLOOD ORDERABLES Final Result [facility] [place] [facility] [address] [facility], [address] [place] [address], [facility] documented in this encounter Visit Diagnoses Diagnosis Acute pulmonary embolism without acute cor pulmonale, unspecified pulmonary embolism type (H)- Primary Acute pulmonary embolism without acute cor pulmonale, unspecified pulmonary embolism type (H) 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 documented in this encounter Admitting Diagnoses Diagnosis Acute pulmonary embolism without acute cor pulmonale, unspecified pulmonary embolism type (H) 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 documented in this encounter Administered Medications Inactive Administered Medications - up to 3 most recent administrations Medication Order MAR Action Action Date Dose Rate Site apixaban ANTICOAGULANT (ELIQUIS) tablet 10 mg 10 mg, Oral, 2 TIMES DAILY, First dose on Wed06/28/24 at 0800, For 14 doses, Indications: DVT-PE TreatmentIndications:DVT-PE Treatment $Given 06/29/2024 7:56 AM MATTRESS FILLER 10 mg $Given 06/28/2024 8:15 PM MATTRESS FILLER 10 mg $Given 06/28/2024 8:14 AM MATTRESS FILLER 10 mg apixaban ANTICOAGULANT (ELIQUIS) tablet 5 mg 5 mg, Oral, 2 TIMES DAILY, First dose on Wed07/05/24 at 0800, Indications: DVT-PE TreatmentIndications:DVT-PE Treatment diclofenac (VOLTAREN) 1 % topical gel 2 g 2 g, Topical, 4 TIMES DAILY PRN, inflammatory pain, Starting on Wed06/27/24 at 0735, Apply to areas of pain. Use supplied dosing card to measure dose. diphenhydrAMINE (BENADRYL) capsule 25 mg 25 mg, Oral, ONCE, On Wed06/26/24 at 1435, For 1 dose $Given 06/26/2024 2:36 PM MATTRESS FILLER 25 mg diphenhydrAMINE (BENADRYL) capsule 25 mg 25 mg, Oral, EVERY 6 HOURS PRN, itching, Starting on Wed06/26/24 at 1837 $Given 06/26/2024 7:20 PM MATTRESS FILLER 25 mg diphenhydrAMINE (BENADRYL) injection 25 mg 25 mg, Intravenous, EVERY 6 HOURS PRN, itching, Starting on Wed06/26/24 at 1837 $Given 06/29/2024 6:00 AM MATTRESS FILLER 25 m g $Given 06/28/2024 10:07 PM MATTRESS FILLER 25 mg $Given 06/28/2024 4:09 PM MATTRESS FILLER 25 mg FLUoxetine (PROzac) capsule 10 mg 10 mg, Oral, DAILY, First dose on Wed06/27/24 at 0800 $Given 06/29/2024 7:56 AM MATTRESS FILLER 10 mg $Given 06/28/2024 8:14 AM MATTRESS FILLER 10 mg $Given 06/27/2024 8:28 AM MATTRESS FILLER 10 mg heparin - BOLUS DOSE from infusion 1,550 Units (rounded from 1,530 Units = 30 Units/kg 51 kg), Intravenous, ONCE, On Wed06/26/24 at 2330, For 1 dose, IV PUMP PROGRAMMING: Program continuous infusion first, then program bolus dose. Infuse over 5 minutes. For Heparin Anti-Xa value 0.18-0.29 High Intensity Heparin Treatment- Anti-Xa monitoring Nurse to administer dose from existing infusion. If no infusion bag or syringe for this order is available, contact pharmacist to re-enter medication order. $Given 06/27/2024 12:06 AM MATTRESS FILLER 1,550 Units heparin - BOLUS DOSE from infusion 1,550 Units (rounded from 1,530 Units = 30 Units/kg 51 kg), Intravenous, ONCE, On Wed06/27/24 at 1335, For 1 dose, IV PUMP PROGRAMMING: Program continuous infusion first, then program bolus dose. Infuse over 5 minutes. For Heparin Anti-Xa value 0.18-0.29 High Intensity Heparin Treatment- Anti-Xa monitoring Nurse to administer dose from existing infusion. If no infusion bag or syringe for this order is available, contact pharmacist to re-enter medication order. $Given 06/27/2024 1:34 PM MATTRESS FILLER 1,550 Units heparin 25,000 units in 0.45% NaCl 250 mL ANTICOAGULANT infusion 0-5,000 Units/hr (0-50 mL/hr), Intravenous, CONTINUOUS, Starting on 06/26/24 at 1635, --Nurse to use Heparin Infusion ADULT Dose Adjustments by RN order set after EVERY heparin unfractionated Anti-Xa result to place further orders (for bolus if needed, infusion adjustment if needed, and ordering next lab)- Starting Infusion Rate = 900 Units/hr (18 units/kg/hr). (Ordered: 06/26/2024) High Intensity Heparin Treatment WITH Boluses. GOAL: Heparin Xa (10a) LEVEL = 0.3-0.7 IU/mL IF HEPARIN INFUSION HELD FOR PROCEDURE: Restart heparin infusion at previous rate (no bolus needed). Nurse to place a one-time unfractionated heparin Anti-Xa lab order timed for 6 hours after heparin infusion was restarted., Heparin Therapy Type: High Intensity Heparin Infusion (Anti Xa 0.3-0.7) $New Bag 06/28/2024 7:51 AM MATTRESS FILLER 1,200 Units/hr 12 mL/hr Rate/Dose Verify 06/28/2024 3:17 AM MATTRESS FILLER 1,200 Units/hr 12 mL/hr Rate/Dose Verify 06/27/2024 8:21 PM MATTRESS FILLER 1,200 Units/hr 12 mL/hr heparin ANTICOAGULANT Loading dose for HIGH INTENSITY TREATMENT * Give BEFORE starting heparin infusion 4,100 Units (rounded from 4,080 Units = 80 Units/kg 51 kg), Intravenous, ONCE, On 06/26/24 at 1635, For 1 dose, Infuse over 5 minutes. High Intensity Heparin Treatment Nurse to administer dose from existing infusion. If no infusion bag or syringe for this order is available, contact pharmacist to re-enter medication order. $Given 06/26/2024 4:50 PM MATTRESS FILLER 4,100 Units heparin lock flush 100 unit/mL injection 5-10 mL 5-10 mL, Intracatheter, EVERY 28 DAYS, First dose on Citlali 06/29/24 at 1025, To de-access each port in dual implanted port. Flush with 10 mL NS sodium chloride 0.9% flush followed by 5 mL heparin (100 units/mL) at discharge and at least every 28 days. MAX: 5 mL per each port lumen $Given 06/29/2024 10:31 AM MATTRESS FILLER 5 mLs hydromorphone (DILAUDID) injection 2 mg 2 mg, Intravenous, EVERY 1 HOUR PRN, severe pain, Starting on Wed06/26/24 at 1429, For 3 doses $Given 06/26/2024 4:34 PM MATTRESS FILLER 2 mg $Given 06/26/2024 3:34 PM MATTRESS FILLER 2 mg $Given 06/26/2024 2:40 PM MATTRESS FILLER 2 mg hydromorphone (DILAUDID) injection 2 mg 2 mg, Intravenous, EVERY 2 HOURS PRN, moderate pain, severe pain, Starting on Wed06/26/24 at 1837 $Given 06/26/2024 9:48 PM MATTRESS FILLER 2 mg $Given 06/26/2024 7:20 PM MATTRESS FILLER 2 mg hydromorphone (DILAUDID) injection 2 mg 2 mg, Intravenous, EVERY 2 HOURS, First dose (after last modification) on Wed06/27/24 at 0000, Hold for excess sedation or RR < 8 / min and inform MD. $Given 06/29/2024 10:06 AM MATTRESS FILLER 2 mg $Given 06/29/2024 8:00 AM MATTRESS FILLER 2 mg $Given 06/29/2024 6:00 AM MATTRESS FILLER 2 mg hydroxyurea (HYDREA) capsule 1,000 mg 1,000 mg, Oral, 2 TIMES DAILY, First dose on Wed06/26/24 at 2000, Indications: sickle cell, Do not crush May require hepatic and/or renal dose or frequency adjustments. See reference link for guidelines.Indications:sickle cell $Given 06/29/2024 7:56 AM MATTRESS FILLER 1,000 mg $Given 06/28/2024 8:10 PM MATTRESS FILLER 1,000 mg $Given 06/28/2024 8:18 AM MATTRESS FILLER 1,000 mg hydrOXYzine HCl (ATARAX) tablet 25 mg 25 mg, Oral, EVERY 6 HOURS PRN, anxiety, Starting on Wed06/26/24 at 1902, Start with 25 mg for the initial dose. If the 25 mg dose is ineffective, increase to the 50 mg dose at the next administration time and maintain further doses at 50 mg. If the 50 mg dose is ineffective, contact the provider. $Given 06/28/2024 4:09 PM MATTRESS FILLER 25 mg $Given 06/27/2024 8:19 AM MATTRESS FILLER 25 mg $Given 06/27/2024 3:14 AM MATTRESS FILLER 25 mg hydrOXYzine HCl (ATARAX) tablet 50 mg 50 mg, Oral, EVERY 6 HOURS PRN, anxiety, Starting on Wed06/26/24 at 1902, Start with 25 mg for the initial dose. If the 25 mg dose is ineffective, increase to the 50 mg dose at the next administration time and maintain further doses at 50 mg. If the 50 mg dose is ineffective, contact the provider. iopamidol (ISOVUE-370) solution 55 mL 55 mL, Intravenous, ONCE, On Wed06/26/24 at 1540, For 1 dose $Given 06/26/2024 3:53 PM MATTRESS FILLER 55 mLs lactated ringers BOLUS 1,000 mL Intravenous, 1,000 mL, ONCE, at 500 mL/hr, Administer over 2 Hours, On Wed06/26/24 at 1435, For 1 dose $New Bag 06/26/2024 2:40 PM MATTRESS FILLER 1,000 mLs 500 mL/hr Lidocaine (LIDOCARE) 4 % Patch 1 patch 1 patch, Transdermal, Administer over 12 Hours, DAILY PRN, neuropathic pain, Starting on Wed06/27/24 at 0800, Apply patch(s) to areas of pain. To prevent lidocaine toxicity, patient [...] Oral, AT BEDTIME PRN, sleep, Starting on Wed06/26/24 at 1951 menthol (Topical Analgesic) 2.5% (BENGAY VANISHING SCENT) 2.5 % topical gel Topical, EVERY 6 HOURS PRN, muscle soreness, Starting on Wed06/27/24 at 0735, Apply to areas of pain. ondansetron (ZOFRAN ODT) ODT tab 4 mg 4 mg, Oral, EVERY 6 HOURS PRN, nausea/vomiting - 1st line, Starting on Wed06/26/24 at 1853, This is Step 1 of nausea and vomiting management. If nausea not resolved in 15 minutes, go to Step 2 prochlorperazine (COMPAZINE). With dry hands, peel back foil backing and gently remove tablet. Do not push oral disintegrating tablet through foil backing. Administer immediately on tongue and oral disintegrating tablet dissolves in seconds, then swallow with saliva. Liquid not required. $Given 06/28/2024 8:14 AM MATTRESS FILLER 4 mg $Given 06/28/2024 2:02 AM MATTRESS FILLER 4 mg $Given 06/27/2024 8:19 PM MATTRESS FILLER 4 mg ondansetron (ZOFRAN) injection 4 mg 4 mg, Intravenous, EVERY 6 HOURS PRN, nausea/vomiting - 1st line, Administer over 2-5 Minutes, Starting on Wed06/26/24 at 1853, Give IF patient unable to tolerate oral medication. This is Step 1 of nausea and vomiting management. If nausea not resolved in 15 minutes, go to Step 2 prochlorperazine (COMPAZINE). prochlorperazine (COMPAZINE) injection 10 mg 10 mg, Intravenous, EVERY 6 HOURS PRN, nausea/vomiting - 2nd line, Administer over 1-2 Minutes, Starting on 06/26/24 at 1853, IF patient unable to tolerate oral medication. This is Step 2 of nausea and vomiting management. Give if nausea not resolved 15 minutes after giving ondansetron (ZOFRAN). prochlorperazine (COMPAZINE) tablet 10 mg 10 mg, Oral, EVERY 6 HOURS PRN, nausea/vomiting - 2nd line, Starting on 06/26/24 at 1853, This is Step 2 of nausea and vomiting management. Give if nausea not resolved 15 minutes after giving ondansetron (ZOFRAN). senna-docusate (SENOKOT-S/PERICOLACE) 8.6-50 MG per tablet 1 tablet 1 tablet, Oral, 2 TIMES DAILY PRN, constipation, Starting on Wed06/26/24 at 1853, If no bowel movement in 24 hours, [...] 2 TIMES DAILY PRN, constipation, Starting on Wed06/26/24 at 1853, IF more than 1 constipation PRN medication is ordered, administer step-barriga as indicated, moving to the next step ONLY if prior step ineffective. Step 1: senna-docusate (SENOKOT-S; PERICOLACE) OR bisacodyl (DULCOLAX) EC tablet Step 2: polyethylene glycol (MIRALAX/GLYCOLAX) Step 3: bisacodyl (DULCOLAX) suppository Step 4: enema Hold for loose stools. sodium chloride (PF) 0.9% PF flush 3 mL 3 mL, Intracatheter, EVERY 8 HOURS, First dose on Wed06/26/24 at 1855, to lock peripheral IV dormant line $Given 06/29/2024 10:06 AM MATTRESS FILLER 3 mLs $Given 06/29/2024 4:00 AM MATTRESS FILLER 3 mLs $Given 06/28/2024 6:05 PM MATTRESS FILLER 3 mLs sodium chloride (PF) 0.9% PF flush 82 mL 82 mL, Intravenous, ONCE, On Wed06/26/24 at 1540, For 1 dose $Given 06/26/2024 3:53 PM MATTRESS FILLER 82 mLs documented in this encounter Active and Recently Administered Medications Times are shown in MATTRESS FILLER. Scheduled Medication Order 06/27/2024 06/28/2024 06/29/2024 apixaban ANTICOAGULANT (ELIQUIS) tablet 10 mg(Linked Group 1) 10 mg, Oral, 2 TIMES DAILY, First dose on Wed06/28/24 at 0800, For 14 doses, Indications: DVT-PE Treatment 08 ($Given - Provider: Sathish Goetz RN)2014 ($Given - Provider: Kathy Mccoy RN) 075 ($Given - Provider: Maki Schultz RN) apixaban ANTICOAGULANT (ELIQUIS) tablet 5 mg(Linked Group 1) 5 mg, Oral, 2 TIMES DAILY, First dose on Wed07/05/24 at 0800, Indications: DVT-PE Treatment FLUoxetine (PROzac) capsule 10 mg 10 mg, Oral, DAILY, First dose on Wed06/27/24 at 0800 0828 ($Given - Provider: Sathish Goetz RN) 0814 ($Given - Provider: Sathish Goetz RN) 0756 ($Given - Provider: Maki Schultz, SOFIA) heparin - BOLUS DOSE from infusion (COMPLETED) 1,550 Units (rounded from 1,530 Units = 30 Units/kg 51 kg), Intravenous, ONCE, On Wed06/26/24 at 2330, For 1 dose, IV PUMP PROGRAMMING: Program continuous infusion first, then program bolus dose. Infuse over 5 minutes. For Heparin Anti-Xa value 0.18-0.29 High Intensity Heparin Treatment- Anti-Xa monitoring Nurse to administer dose from existing infusion. If no infusion bag or syringe for this order is available, contact pharmacist to re-enter medication order. 0006 ($Given - Provider: Gordo Sykes RN) heparin - BOLUS DOSE from infusion (COMPLETED) 1,550 Units (rounded from 1,530 Units = 30 Units/kg 51 kg), Intravenous, ONCE, On Wed06/27/24 at 1335, For 1 dose, IV PUMP PROGRAMMING: Program continuous infusion first, then program bolus dose. Infuse over 5 minutes. For Heparin Anti-Xa value 0.18-0.29 High Intensity Heparin Treatment- Anti-Xa monitoring Nurse to administer dose from existing infusion. If no infusion bag or syringe for this order is available, contact pharmacist to re-enter medication order. 1334 ($Given - Provider: Sathish Goetz RN) heparin lock flush 100 unit/mL injection 5-10 mL 5-10 mL, Intracatheter, EVERY 28 DAYS, First dose on Citlali 06/29/24 at 1025, To de-access each port in dual implanted port. Flush with 10 mL NS sodium chloride 0.9% flush followed by 5 mL heparin (100 units/mL) at discharge and at least every 28 days. MAX: 5 mL per each port lumen 1031 ($Given - Provider: Maki Schultz RN) hydromorphone (DILAUDID) injection 2 mg 2 mg, Intravenous, EVERY 2 HOURS, First dose (after last modification) on Wed06/27/24 at 0000, Hold for excess sedation or RR < 8 / min and inform MD. 0159 ($Given - Provider: Gordo Sykes, SOFIA)0400 ($Given - Provider: Gordo Sykes, RN)0601 ($Given - Provider: Gordo Sykes, RN)0818 ($Given - Provider: Sathish Goetz RN)1030 ($Given - Provider: Sathish Goetz RN)1234 ($Given - Provider: Sathish Goetz, RN)1432 ($Given - Provider: Sathish Goetz, RN)1610 ($Given - Provider: Mely Barbour RN)1758 ($Given - Provider: Mely Barbour, RN)2011 ($Given - Provider: Duke Olivares RN)2207 ($Given - Provider: Duke Olivares RN)2358 ($Given - Provider: Duke Olivares RN) 0201 ($Given - Provider: Duke Olivares RN)0403 ($Given - Provider: Duke Olivares RN)0611 ($Given - Provider: Duke Olivares RN)0810 ($Given - Provider: Sathish Goetz RN)1018 ($Given - Provider: Sathish Goetz RN)1218 ($Given - Provider: Sathish Goetz RN)1424 ($Given - Provider: Sathish Goetz RN)1609 ($Given - Provider: Tika Osborn RN)1805 ($Given - Provider: Tika Osborn RN)2010 ($Given - Provider: Kathy Mccoy, SOFIA)2203 ($Given - Provider: Kathy Mccoy, SOFIA) 0004 ($Given - Provider: Kathy Mccoy RN)0200 ($Given - Provider: Kathy Mccoy RN)0359 ($Given - Provider: Lavinia Cruz, SOFIA)0600 ($Given - Provider: Lavinia Cruz, RN)0800 ($Given - Provider: Maki Schultz RN)1006 ($Given - Provider: Maki Schultz SOFIA)1200 (Canceled Entry - Provider: Orders Generic Provider - Comment: Automatically canceled at discontinue of medication order) hydroxyurea (HYDREA) capsule 1,000 mg 1,000 mg, Oral, 2 TIMES DAILY, First dose on Wed06/26/24 at 2000, Indications: sickle cell, Do not crush May require hepatic and/or renal dose or frequency adjustments. See reference link for guidelines. 0828 ($Given - Provider: Sathish Goetz RN)2017 ($Given - Provider: Duke Olivares RN) 0818 ($Given - Provider: Sathish Goetz RN)2009 ($Given - Provider: Kathy Mccoy, SOFIA) 0756 ($Given - Provider: Maki Schultz RN) sodium chloride (PF) 0.9% PF flush 3 mL 3 mL, Intracatheter, EVERY 8 HOURS, First dose on Wed06/26/24 at 1855, to lock peripheral IV dormant line 0255 (Not Given - Provider: Gordo Sykes RN - Reason: IV Infusing)1040 (Not Given - Provider: Sathish Goetz RN - Reason: IV Infusing)2018 ($Given - Provider: Duke Olivares RN) 0203 ($Given - Provider: Duke Olivares RN)1019 ($Given - Provider: Sathish Goetz RN)1805 ($Given - Provider: Tika Osborn RN) 0400 ($Given - Provider: Lavinia Cruz, SOFIA)1006 ($Given - Provider: Maki Schultz, SOFIA) Continuous Medication Order 06/27/2024 06/28/2024 06/29/2024 heparin 25,000 units in 0.45% NaCl 250 mL ANTICOAGULANT infusion (CANCELED) 0-5,000 Units/hr (0-50 mL/hr), Intravenous, CONTINUOUS, Starting on Wed06/26/24 at 1635, --Nurse to use Heparin Infusion ADULT Dose Adjustments by RN order set after EVERY heparin unfractionated Anti-Xa result to place further orders (for bolus if needed, infusion adjustment if needed, and ordering next lab)- Starting Infusion Rate = 900 Units/hr (18 units/kg/hr). (Ordered: 06/26/2024) High Intensity Heparin Treatment WITH Boluses. GOAL: Heparin Xa (10a) LEVEL = 0.3-0.7 IU/mL IF HEPARIN INFUSION HELD FOR PROCEDURE: Restart heparin infusion at previous rate (no bolus needed). Nurse to place a one-time unfractionated heparin Anti-Xa lab order timed for 6 hours after heparin infusion was restarted., Heparin Therapy Type: High Intensity Heparin Infusion (Anti Xa 0.3-0.7) 0319 (Rate/Dose Verify - Provider: Gordo Sykes RN)0644 (Rate/Dose Verify - Provider: Gordo Sykes RN - Comment: 0530 anti XA result- 0.30, in target range so medical technical writer is NOT adjusting. ordered next lab due at 1235)0914 (Rate/Dose Verify - Provider: Sathish Goetz RN)1106 ($New Bag - Provider: Sathish Goetz RN)1341 (Rate/Dose Change - Provider: Sathish Goetz RN)1545 (Rate/Dose Verify - Provider: Mely Barbour RN)1854 (Rate/Dose Verify - Provider: Mely Barbour RN)2021 (Rate/Dose Verify - Provider: Duke Olivares RN) 0317 (Rate/Dose Verify - Provider: Duke Olivares RN)0751 ($New Bag - Provider: Sathish Goetz RN)0816 (Stopped - Provider: Sathish Goetz RN) PRN Medication Order 06/27/2024 06/28/2024 06/29/2024 calcium carbonate (TUMS) chewable tablet 1,000 mg 1,000 mg, Oral, 4 TIMES DAILY PRN, heartburn, Starting on Wed06/26/24 at 1853 diclofenac (VOLTAREN) 1 % topical gel 2 g 2 g, Topical, 4 TIMES DAILY PRN, inflammatory pain, Starting on Wed06/27/24 at 0735, Apply to areas of pain. Use supplied dosing card to measure dose. diphenhydrAMINE (BENADRYL) capsule 25 mg(Linked Group 2) 25 mg, Oral, EVERY 6 HOURS PRN, itching, Starting on Wed06/26/24 at 1837 0158 (See Alternative - Provider: Gordo Sykes RN)0820 (Not Given - Provider: Sathish Goetz RN - Reason: Other - Comment: PT WANTS IV BENADRYL)0828 (See Alternative - Provider: Sathish Goetz RN)1437 (See Alternative - Provider: Sathish Goetz RN)2047 (See Alternative - Provider: Duke Olivares RN) 0403 (See Alternative - Provider: Duke Olivares RN)0813 (See Alternative - Provider: Sathish Goetz RN)1018 (See Alternative - Provider: Sathish Goetz RN)1609 (See Alternative - Provider: Tika Osborn RN)2207 (See Alternative - Provider: Kathy Mccoy, SOFIA) 0600 (See Alternative - Provider: Lavinia Cruz, SOFIA) diphenhydrAMINE (BENADRYL) injection 25 mg(Linked Group 2) 25 mg, Intravenous, EVERY 6 HOURS PRN, itching, Starting on Wed06/26/24 at 1837 0158 ($Given - Provider: Gordo Sykes RN)0820 (See Alternative - Provider: Sathish Goetz RN)0828 ($Given - Provider: Sathish Goetz RN)1437 ($Given - Provider: Sathish Goetz RN)2047 ($Given - Provider: Duke Olivares RN) 0403 ($Given - Provider: Duke Olivares RN)0813 (Canceled Entry - Provider: Sathish Goetz RN)1018 ($Given - Provider: Sathish Goetz RN)1609 ($Given - Provider: Tika Osborn RN)2207 ($Given - Provider: Kathy Mccoy, SOFIA) 0600 ($Given - Provider: Lavinia Cruz, SOFIA) hydrOXYzine HCl (ATARAX) tablet 25 mg(Linked Group 3) 25 mg, Oral, EVERY 6 HOURS PRN, anxiety, Starting on Wed06/26/24 at 1902, Start with 25 mg for the initial dose. If the 25 mg dose is ineffective, increase to the 50 mg dose at the next administration time and maintain further doses at 50 mg. If the 50 mg dose is ineffective, contact the provider. 0314 ($Given - Provider: Gordo Sykes RN - Comment: pt feeling anxious (per pt statement))0819 ($Given - Provider: Sathish Goetz, RN) 1606 ($Given - Provider: Tika Osborn, RN) hydrOXYzine HCl (ATARAX) tablet 50 mg(Linked Group 3) 50 mg, Oral, EVERY 6 HOURS PRN, anxiety, Starting on Wed06/26/24 at 1902, Start with 25 mg for the initial dose. If the 25 mg dose is ineffective, increase to the 50 mg dose at the next administration time and maintain further doses at 50 mg. If the 50 mg dose is ineffective, contact the provider. 0314 (See Alternative - Provider: Gordo Sykes RN)0819 (See Alternative - Provider: Sathish Goetz RN) 1600 (See Alternative - Provider: Tika Osborn, RN) Lidocaine (LIDOCARE) 4 % Patch 1 patch 1 patch, Transdermal, Administer over 12 Hours, DAILY PRN, neuropathic pain, Starting on Wed06/27/24 at 0800, Apply patch(s) to areas of pain. To prevent lidocaine toxicity, patient [...] heating pads, electric blankets, or other equipment. lidocaine (LMX4) cream Topical, EVERY 1 HOUR PRN, pain, with VAD insertion, Starting on Wed06/26/24 at 1853, Apply at least 30 minutes prior to [...] mild pain with VAD insertion, Starting on Wed06/26/24 at 1853, MAX dose 1 mL subcutaneous OR intradermal [...] Oral, AT BEDTIME PRN, sleep, Starting on Wed06/26/24 at 1951 menthol (Topical Analgesic) 2.5% (BENGAY VANISHING SCENT) 2.5 % topical gel Topical, EVERY 6 HOURS PRN, muscle soreness, Starting on Wed06/27/24 at 0735, Apply to areas of pain. ondansetron (ZOFRAN ODT) ODT tab 4 mg(Linked Group 4) 4 mg, Oral, EVERY 6 HOURS PRN, nausea/vomiting - 1st line, Starting on Wed06/26/24 at 1853, This is Step 1 of nausea and vomiting management. If nausea not resolved in 15 minutes, go to Step 2 prochlorperazine (COMPAZINE). With dry hands, peel back foil backing and gently remove tablet. Do not push oral disintegrating tablet through foil backing. Administer immediately on tongue and oral disintegrating tablet dissolves in seconds, then swallow with saliva. Liquid not required. 0157 ($Given - Provider: Gordo Sykes RN)0819 ($Given - Provider: Sathish Goetz RN)2018 ($Given - Provider: Duke Olivares RN) 0202 ($Given - Provider: Duke Olivares RN)0814 ($Given - Provider: Sathish Goetz RN) ondansetron (ZOFRAN) injection 4 mg(Linked Group 4) 4 mg, Intravenous, EVERY 6 HOURS PRN, nausea/vomiting - 1st line, Administer over 2-5 Minutes, Starting on Wed06/26/24 at 1853, Give IF patient unable to tolerate oral medication. This is Step 1 of nausea and vomiting management. If nausea not resolved in 15 minutes, go to Step 2 prochlorperazine (COMPAZINE). 0157 (See Alternative - Provider: Gordo Sykes RN)0819 (See Alternative - Provider: Sathish Goetz RN)2018 (See Alternative - Provider: Duke Olivares RN) 0202 (See Alternative - Provider: Duke Olivares RN)0814 (See Alternative - Provider: Sathish Goetz RN) Patient is already receiving anticoagulation with heparin, enoxaparin (LOVENOX), warfarin (COUMADIN) or other anticoagulant medication CONTINUOUS PRN, Starting on 06/26/24 at 1853, Until Citlali 06/29/24 at 1311 polyethylene glycol (MIRALAX) Packet 17 g 17 g, Oral, 2 TIMES DAILY PRN, constipation, Starting on Wed06/26/24 at 1853, IF more than 1 constipation PRN medication is ordered, administer step-barriga as indicated, moving to the next step ONLY if prior step ineffective. Step 1: senna-docusate (SENOKOT-S; PERICOLACE) OR bisacodyl (DULCOLAX) EC tablet Step 2: polyethylene glycol (MIRALAX/GLYCOLAX) Step 3: bisacodyl (DULCOLAX) suppository Step 4: enema 1 Packet = 17 grams. Mix each gram with at least 1/2 ounce (15 mL) of water - 8 ounces for 17 g dose, 4 ounces for 8.5 g dose, 2 ounces for 4 g dose. Follow with the same volume of water. Hold for loose stools unless being administered as part of a bowel prep regimen or bowel clean out. prochlorperazine (COMPAZINE) injection 10 mg(Linked Group 5) 10 mg, Intravenous, EVERY 6 HOURS PRN, nausea/vomiting - 2nd line, Administer over 1-2 Minutes, Starting on Wed06/26/24 at 1853, IF patient unable to tolerate oral medication. This is Step 2 of nausea and vomiting management. Give if nausea not resolved 15 minutes after giving ondansetron (ZOFRAN). prochlorperazine (COMPAZINE) tablet 10 mg(Linked Group 5) 10 mg, Oral, EVERY 6 HOURS PRN, nausea/vomiting - 2nd line, Starting on Wed06/26/24 at 1853, This is Step 2 of nausea and vomiting management. Give if nausea not resolved 15 minutes after giving ondansetron (ZOFRAN). senna-docusate (SENOKOT-S/PERICOLACE) 8.6-50 MG per tablet 1 tablet(Linked Group 6) 1 tablet, Oral, 2 TIMES DAILY PRN, constipation, Starting on Wed06/26/24 at 1853, If no bowel movement in 24 hours, [...] 8.6-50 MG per tablet 2 tablet(Linked Group 6) 2 tablet, Oral, 2 TIMES DAILY PRN, constipation, Starting on Wed06/26/24 at 1853, IF more than 1 constipation PRN medication is ordered, administer step-barriga as indicated, moving to the next step ONLY if prior step ineffective. Step 1: senna-docusate (SENOKOT-S; PERICOLACE) OR bisacodyl (DULCOLAX) EC tablet Step 2: polyethylene glycol (MIRALAX/GLYCOLAX) Step 3: bisacodyl (DULCOLAX) suppository Step 4: enema Hold for loose stools. sodium chloride (PF) 0.9% PF flush 3 mL 3 mL, Intracatheter, EVERY 1 MIN PRN, line flush, other, to ensure patency or to lock dormant line, Starting on Wed06/26/24 at 1853 Linked Groups Order Group 1: apixaban ANTICOAGULANT (ELIQUIS) tablet 10 mgJump to med 10 mg, Oral, 2 TIMES DAILY, First dose on Wed06/28/24 at 0800, For 14 doses, Indications: DVT-PE Treatment Followed by apixaban ANTICOAGULANT (ELIQUIS) tablet 5 mgJump to med 5 mg, Oral, 2 TIMES DAILY, First dose on Wed07/05/24 at 0800, Indications: DVT- PE Treatment Group 2: diphenhydrAMINE (BENADRYL) capsule 25 mgJump to med 25 mg, Oral, EVERY 6 HOURS PRN, itching, Starting on Wed06/26/24 at 1837 Or diphenhydrAMINE (BENADRYL) injection 25 mgJump to med 25 mg, Intravenous, EVERY 6 HOURS PRN, itching, Starting on Wed06/26/24 at 1837 Group 3: hydrOXYzine HCl (ATARAX) tablet 25 mgJump to med 25 mg, Oral, EVERY 6 HOURS PRN, anxiety, Starting on Wed06/26/24 at 1902, Start with 25 mg for the initial dose. If the 25 mg dose is ineffective, increase to the 50 mg dose at the next administration time and maintain further doses at 50 mg. If the 50 mg dose is ineffective, contact the provider. Or hydrOXYzine HCl (ATARAX) tablet 50 mgJump to med 50 mg, Oral, EVERY 6 HOURS PRN, anxiety, Starting on Wed06/26/24 at 1902, Start with 25 mg for the initial dose. If the 25 mg dose is ineffective, increase to the 50 mg dose at the next administration time and maintain further doses at 50 mg. If the 50 mg dose is ineffective, contact the provider. Group 4: ondansetron (ZOFRAN ODT) ODT tab 4 mgJump to med 4 mg, Oral, EVERY 6 HOURS PRN, nausea/vomiting - 1st line, Starting on Wed06/26/24 at 1853, This is Step 1 of nausea and [...] line, Administer over 2-5 Minutes, Starting on Wed06/26/24 at 1853, Give IF patient unable to tolerate oral medication. This is Step 1 of nausea and vomiting management. If nausea not resolved in 15 minutes, go to Step 2 prochlorperazine (COMPAZINE). Group 5: prochlorperazine (COMPAZINE) injection 10 mgJump to med 10 mg, Intravenous, EVERY 6 HOURS PRN, nausea/vomiting - 2nd line, Administer over 1-2 Minutes, Starting on Wed06/26/24 at 1853, IF patient unable to tolerate oral medication. This is Step 2 of nausea and vomiting management. Give if nausea not resolved 15 minutes after giving ondansetron (ZOFRAN). Or prochlorperazine (COMPAZINE) tablet 10 mgJump to med 10 mg, Oral, EVERY 6 HOURS PRN, nausea/vomiting - 2nd line, Starting on Wed06/26/24 at 1853, This is Step 2 of nausea and vomiting management. Give if nausea not resolved 15 minutes after giving ondansetron (ZOFRAN). Group 6: senna-docusate (SENOKOT-S/PERICOLACE) 8.6-50 MG per tablet 1 tabletJump to med 1 tablet, Oral, 2 TIMES DAILY PRN, constipation, Starting on Wed06/26/24 at 1853, If no bowel movement in 24 hours, [...] 2 TIMES DAILY PRN, constipation, Starting on Wed06/26/24 at 1853, IF more than 1 constipation PRN medication is ordered, administer step-barriga as indicated, moving to the next step ONLY if prior step ineffective. Step 1: senna-docusate (SENOKOT-S; PERICOLACE) OR bisacodyl (DULCOLAX) EC tablet Step 2: polyethylene glycol (MIRALAX/GLYCOLAX) Step 3: bisacodyl (DULCOLAX) suppository Step 4: enema Hold for loose stools. documented in this encounter Additional Health Concerns Infection Onset Date Last Indicated Resolved Time Rule Out COVID-19 06/27/2024 06/27/2024 06/27/2024 10:03 AM MATTRESS F[employer]ER documented as of this encounter Care Teams Pattern Attendant Relationship Specialty Start Date End Date Veronica Joseph MD [address] [place] [address] PCP - General Family Medicine 06/18/24 Mor Ramsey Medical Student 04/03/24 Case Samuel MD [address] [place] [id number], [address] [place] [address] Assigned Pediatric Specialist Provider 05/18/24 Juhi Benson, RN Specialty Bryologist Hematology & Oncology 05/29/24 documented as of this encounter
--- OUTSIDE RECORDS SUMMARY | 2024-06-30 22:32 | XMS_ITS | Encounter Summary ---
Author Organization [facility] Address [address] [place] [address] Care Team Providers Care Riding Teacher Name Role Phone No Ref-Primary, Physician Primary Care Provider Mor Ramsey Unavailable Unavailable Case Samuel MD Unavailable [phone] Juhi Benson RN Unavailable Unavailable Reason for Visit * Reason Comments Sickle Cell Pain Crisis Encounter Details Date Type Department Care Team (Late st Contact Info) Description 05/31/2024 9:56 PM CRAB STEAMER - 06/01/2024 12:[address] [facility] Emergency [facility] Emergency Room Critical access hospital[address] [place] [address] Carley Riggins MD [address] [address] Sickle cell pain crisis (H) Discharge Disposition: [...] on file Legal Sex Female 8:25 AM CRAB STEAMER Gender Identity Not on file Sexual Orientation Not on file documented as of this encounter Last Filed Vital Signs Vital Sign Reading Time Taken Comments Blood Pressure 118/63 06/01/2024 12:41 AM CRAB STEAMER Pulse 71 06/01/2024 12:41 AM CRAB STEAMER Temperature 36.7 C (98 F) 05/31/2024 9:39 PM CRAB STEAMER Respiratory Rate 20 05/31/2024 9:39 PM CRAB STEAMER Oxygen Saturation 98% 06/01/2024 12:41 AM CRAB STEAMER Inhaled Oxygen Concentration - - Weight 54.4 kg (120 lb) 05/31/2024 9:39 PM CRAB STEAMER Height 154.9 cm (5' 1) 05/31/2024 9:39 PM CRAB STEAMER Body Mass Index 22.67 05/31/2024 9:39 PM CRAB STEAMER documented in this encounter Discharge Instructions * Attachments The following attachments cannot be sent through Care Everywhere. * Sickle Cell Crisis ([place]) documented in this encounter Medications at Time [...] her left chest. She recently moved to [place] from [place], and notes the difference in temperature may be exacerbating her symptoms. Patient denies any other complaints at this time. 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 Recently moved to [place] from [place], [place]. She is 1 of 9 [...] Social Connections: Socially Integrated (03/28/2024) [facility] Do you often [...] Automated Count Confirmed. Platelet morphology is normal. Round O Cells Slight (*) Elliptocytes Slight (*) [place] Bodies Present (*) Polychromasia Slight (*) Sickle [...] my direction. Carley Riggins M.D. Emergency Medicine [facility] EMERGENCY ROOM [address] [facility] [id number] Dept: [phone] Carley Riggins MD 06/01/24 0048 STEAMER * Aminata Farley RN - 05/31/2024 9:40 PM CST Pt is coming in with a sickle cell crisis. Pt was unable to pick pack worker her medication d/t pharmacy needing to order it. Tylenol last at 1700 Ibuprofen last at 2100 Triage Assessment (Adult) Row Name 05/31/240 Triage Assessment Airway WDL WDL Respiratory WDL Respiratory WDL WDL Skin Circulation/Temperature WDL Skin Circulation/Temperature WDL WDL Cardiac WDL Cardiac WDL WDL Peripheral/Neurovascular WDL Peripheral Neurovascular WDL WDL Cognitive/Neuro/Behavioral WDL Cognitive/Neuro/Behavioral WDL WDL STEAMER documented in this encounter Plan of Treatment Upcoming Encounters Date Type Department Care Team (Late st Contact Info) Description 07/10/2024 11:30 AM CDT Oncology Visit [facility] [address] [place] [address] Case Samuel MD [address] [place] [address] 484, [address] [place], [place] [id number] documented as of this encounter Goals Goal Patient Goal Type Associated Problems Recent Progress Patient-Stated? Author Pain Management General On track( 025 12:40 PM CRAB STEAMER) Yes Juhi Benson, RN Note: Goal Statement: [...] AND PLATELET MORPHOLOGY STAT 05/31/2024 10:21 PM CRAB STEAMER CBC WITH PLATELETS AND DIFFERENTIAL STAT 05/31/2024 10:21 PM CRAB STEAMER CBC WITH PLATELETS & DIFFERENTIAL STAT 05/31/2024 10:21 PM CRAB STEAMER RETICULOCYTE COUNT STAT 05/31/2024 10 :21 PM CRAB STEAMER BASIC METABOLIC PANEL STAT 05/31/2024 10:21 PM CRAB STEAMER documented in this encounter Results * (ABNORMAL) RBC and Platelet Morphology (05/31/2024 10:21 PM CRAB STEAMER) [facility] RBC Morphology Confirmed RBC Indices 05/31/2024 10:59 PM [facility] Platelet Assessment Automated Count Confirmed. Platelet morphology is normal. Automated Count Confirmed. Platelet morphology is normal. JARET 05/31/2024 10:59 PM [facility] Round O Cells Slight(A) None Seen JARET 05/31/2024 10:59 PM [facility] Elliptocytes Slight(A) None Seen JARET 05/31/2024 10:59 PM [facility] [place] Bodies Present(A) None Seen JARET 05/31/2024 10:59 PM [facility] Polychromasia Slight(A) None Seen JARET 05/31/2024 10:59 PM [facility] Sickle Cells Moderate(A) None Seen JARET 05/31/2024 10:59 PM [facility] Target Cells Slight(A) None Seen JARET 05/31/2024 10:59 PM [facility] Blood BLOOD SPECIMEN / Unknown Venipuncture / Unknown 05/31/2024 10:21 PM CRAB STEAMER 05/31/2024 10:24 PM CRAB STEAMER us Carley Riggins MD LAB - BLOOD ORDERABLES Liss bola Result [facility] [address] [place] [address], [facility] * (ABNORMAL) CBC with platelets and differential (05/31/2024 10:21 PM CRAB STEAMER) WBC Count 15.4(H) 4.0 - 11.0 10e3/uL 05/31/2024 10:55 PM [facility] RBC Count 2.73(L) 3.80 - 5.20 10e6/uL 05/31/2024 10:55 PM [facility] Hemoglobin 8.9(L) 11.7 - 15.7 g/dL 05/31/2024 10:55 PM [facility] Hematocrit 24.8(L) 35.0 - 47.0 % 05/31/2024 10:55 PM [facility] MCV 91 78 - 100 fL 05/31/2024 10:55 PM [facility] MCH 32.6 26.5 - 33.0 pg 05/31/2024 10:55 PM [facility] MCHC 35.9 31.5 - 36.5 g/dL 05/31/2024 10:55 PM [facility] RDW 21.2(H) 10.0 - 15.0 % 05/31/2024 10:55 PM [facility] Platelet Count 399 150 - 450 10e3/uL 05/31/2024 10:55 PM [facility] % Neutrophils 56 % 05/31/2024 10:55 PM [facility] % Lymphocytes 27 % 05/31/2024 10:55 PM [facility] % Monocytes 14 % 05/31/2024 10:55 PM [facility] % Eosinophils 1 % 05/31/2024 10:55 PM [facility] % Basophils 1 % 05/31/2024 10:55 PM [facility] % Immature Granulocytes 1 % 05/31/2024 10:55 PM [facility] NRBCs per 100 WBC 2(H) <1 /100 025 10:55 PM [facility] Absolute Neutrophils 8.7(H) 1.6 - 8.3 10e3/uL 05/31/2024 10:55 PM [facility] Absolute Lymphocytes 4.2 0.8 - 5.3 10e3/uL 05/31/2024 10:55 PM [facility] Absolute Monocytes 2.2(H) 0.0 - 1.3 10e3/uL 05/31/2024 10:55 PM [facility] Absolute Eosinophils 0.2 0.0 - 0.7 10e3/uL 05/31/2024 10:55 PM [facility] Absolute Basophils 0.1 0.0 - 0.2 10e3/uL 05/31/2024 10:55 PM [facility] Absolute Immature Granulocytes 0.1 <=0.4 10e3/uL 05/31/2024 10:55 PM [facility] Absolute NRBCs 0.3 10e3/uL 05/31/2024 10:55 PM [facility] Blood BLOOD SPECIMEN / Unknown Venipuncture / Unknown 05/31/2024 10:21 PM CRAB STEAMER 05/31/2024 10:[address] [facility] us Carley Riggins MD LAB - BLOOD ORDERABLES Liss l Result [facility] [address] [place] [address], [facility] * (ABNORMAL) Basic metabolic panel (05/31/2024 10:21 PM CRAB STEAMER) Sodium 133(L) 135 - 145 mmol/L 05/31/2024 10:46 PM [facility] Potassium 4.1 3.4 - 5.3 mmol/L 05/31/2024 10:46 PM [facility] Chloride 102 98 - 107 mmol/L 05/31/2024 10:46 PM [facility] Carbon Dioxide (CO2) 20(L) 22 - 29 mmol/L 05/31/2024 10:46 PM [facility] Anion Gap 11 7 - 15 mmol/L 05/31/2024 10:46 PM [facility] Urea Nitrogen 9.9 6.0 - 20.0 mg/dL 05/31/2024 10:46 PM [facility] Creatinine 0.70 0.51 - 0.95 mg/dL 05/31/2024 10:46 PM [facility] GFR Estimate >90 >60 mL/min/1.7 3m2 05/31/2024 10:46 PM [facility] Comment:eGFR calculated usin 2020 CKD-EPI equation. Calcium 9.0 8.8 - 10.4 mg/dL 05/31/2024 10:46 PM [facility] Glucose 97 70 - 99 mg/dL 05/31/2024 10:46 PM [facility] Blood BLOOD SPECIMEN / Unknown Venipuncture / Unknown 05/31/2024 10:21 PM CRAB STEAMER 05/31/2024 10:[address] [facility] Carley Riggins MD LAB - BLOOD ORDERABLES Liss l Result Performing Organization Address [facility]/ZIP Co de Phone Number [facility] [address] [place] [address], [facility] * (ABNORMAL) Reticulocyte count (05/31/2024 10:[address] [facility]) [facility] % Reticulocyte 22.7(H) 0.5 - 2.0 % 05/31/2024 10:45 PM [facility] Absolute Reticulocyte 0.631(H) 0.025 - 0.095 10e6/uL 05/31/2024 10:45 PM [facility] Blood BLOOD SPECIMEN / Unknown Venipuncture / Unknown 05/31/2024 10:21 PM CRAB STEAMER 05/31/2024 10:24 PM CRAB STEAMER Carley Riggins MD LAB - BLOOD ORDERABLES Liss l Result [facility] [address] [facility], [facility] documented in this encounter [...] For 1 dose $Given 05/31/2024 10:50 PM CRAB STEAMER 25 mg heparin lock flush 100 unit/mL injection 100 Units 100 Units, Intracatheter, ONCE, On Citlali 06/01/24 at 0030, For 1 dose $Given 06/01/2024 12:39 AM CRAB STEAMER 100 Units HYDROmorphone (DILAUDID) injection 2 mg 2 mg, Intravenous, EVERY 1 HOUR PRN, severe pain, Starting on Wed05/31/24 at 2143, For 3 doses $Given 06/01/2024 12:36 AM CRAB STEAMER 2 mg $Given 05/31/2024 11:42 PM CRAB STEAMER 2 mg $Given 05/31/2024 10:28 PM CRAB STEAMER 2 mg lactated ringers infusion at 500 mL/hr, Intravenous, CONTINUOUS, Starting on Wed05/31/24 at 2200, Until Wed05/31/24 at 2359 $New Bag 05/31/2024 10:22 PM CRAB STEAMER 500 mL/hr ondansetron (ZOFRAN) injection 8 mg 8 mg, Intravenous, ONCE, Administer over 2-5 Minutes, On Wed05/31/24 at 2200, For 1 dose $Given 05/31/2024 10:27 PM CRAB STEAMER 8 mg documented in this encounter Active and Recently Administered Medications Times are shown in CRAB STEAMER. Scheduled Medication Order 05/30/2024 05/31/2024 06/01/2024 diphenhydrAMINE (BENADRYL) capsule 25 mg (COMPLETED) 25 mg, Oral, ONCE, On Wed05/31/24 at 2300, For 1 dose 2250 ($Given - Provider: Sabrina Tinoco RN) heparin lock flush 100 unit/mL injection 100 Units (COMPLETED) 100 Units, Intracatheter, ONCE, On Citlali 06/01/24 at 0030, For 1 dose 0039 ($Given - Provi nas: Sabrina Tinoco RN) ondansetron (ZOFRAN) injection 8 mg (COMPLETED) [...] RN) 0022 (Stopped - Provider: Sabrina Tinoco, RN) PRN Medication Order 05/30/2024 05/31/2024 06/01/2024 HYDROmorphone (DILAUDID) injection 2 mg (COMPLETED) 2 mg, Intravenous, EVERY 1 HOUR PRN, severe pain, Starting on Wed05/31/24 at 2143, For 3 doses 2228 ($Given - Provider: Carlos Charles RN)2342 ($Given - Provider: Sabrina Tinoco, SOFIA) 0036 ($Given - Provider: Sabrina Tinoco, SOFIA) documented in this encounter Care Teams Riding Teacher Relationship Specialty Start Date End Date No Ref-Primary, Physician PCP - General 03/15/24 06/17/24 Mor Ramsey Medical Student 04/03/24 Case Samuel MD [address] [place] [address] 484, [address] [place] [address] Assigned Pediatric Specialist Provider 05/18/24 Juhi Benson, SOFIA Specialty Bus Inspector Hematology & Oncology 05/29/24 documented as of this encounter
--- OUTSIDE RECORDS SUMMARY | 2024-06-30 22:33 | XMS_ITS | Encounter Summary ---
Author Organization [facility] Address [address] [place] [address]. [place] [address] Care Team Providers Care Billing Control Clerk Name Role Phone No Ref-Primary, Physician Primary Care Provider Mor Ramsey Unavailable Unavailable Case Samuel MD Unavailable [phone] Juhi Benson RN Unavailable Unavailable Reason for Visit * Reason Comments Sickle Cell Pain Crisis Encounter Details Date Type Department Care Team (Late st Contact Info) Description 06/07/2024 10:00 AM AIRCRAFT REFUELLER - 06/07/2024 10:45 AM [facility] Emergency [facility] Room [facility] [place] [address] Bernabe Farley MD [facility] [address] [place] [address] Chest pain, unspecified type; Fever, unspecified fever [...] file Legal Sex Female 8:25 AM AIRCRAFT REFUELLER Gender Identity Not on file Sexual Orientation Not on file documented as of this encounter Last Filed Vital Signs Vital Sign Reading Time Taken Comments Blood Pressure 108/63 06/07/2024 9:59 AM AIRCRAFT REFUELLER Pulse 84 06/07/2024 9:59 AM AIRCRAFT REFUELLER Temperature 36.6 C (97.9 F) 06/07/2024 9:59 AM AIRCRAFT REFUELLER Respiratory Rate 19 06/07/2024 9:59 AM AIRCRAFT REFUELLER Oxygen Saturation 100% 06/07/2024 9:59 AM AIRCRAFT REFUELLER Inhaled Oxygen Concentration - - Weight 52.2 kg (115 lb) 06/07/2024 9:59 AM AIRCRAFT REFUELLER Height - - Body Mass Index 21.73 06/06/2024 9:33 AM AIRCRAFT REFUELLER documented in this encounter Medications at Time [...] 05/01/2024 naloxone (NARCAN) 4 MG/0.1ML nasal spray [place] 1 spray (4 mg) into one nostril [...] did not want to wait for a reach lift truck driver so she would like to leave at this time. MD and charge informed. RAFT REFUELLER * Bernabe Farley MD - 06/07/2024 10:04 [...] she unfortunately left by car as the reach lift truck driver after stating to staff that [...] ED Course timestamps entered by medical technologist microbiology: 10:12 AM I met with the patient [...] at this time. Per Chart Review: 06/06/24, [facility] ED: Patient presented for sickle cell [...] our physician who is working with her evaluation specialist for the care plan. Per the patient [...] she shows signs of opiate overdose. Our warehouse delivery driver Hattie and our personnel security assistant Jagdeep both just saw the patient to get into the reach lift truck driver seat and drive away after [...] my direction. Bernabe Farley M.D. Emergency Medicine [facility] EMERGENCY ROOM [address] [facility] [phone] Dept: [phone] Bernabe Farley MD 06/07/24 1045 RAFT REFUELLER * Yanely Avendano RN - 06/07/2024 10:04 AM CST Pt here in sickle cell crisis for the 3rd day. Yesterday she received a lot of IV dilaudid and then drove home after told not to. Upon arrival here she repeatedly told this machine sign writer she was dropped off but after reviewing the security camera she is clearly driving in and getting out of the reach lift truck driver seat. Provider notified. Reports chest pain today. Last dose of oral was 2 hours ago. Triage Assessment (Adult) Row Name 06/07/24 0959 Triage Assessment Airway WDL WDL Respiratory WDL Respiratory WDL WDL Skin Circulation/Temperature WDL Skin Circulation/Temperature WDL WDL Cardiac WDL Cardiac WDL WDL Peripheral/Neurovascular WDL Peripheral Neurovascular WDL WDL Cognitive/Neuro/Behavioral WDL Cognitive/Neuro/Behavioral WDL WDL RAFT REFUELLER documented in this encounter Plan of Treatment Upcoming Encounters Date Type Department Care Team (Late st Contact Info) Description 07/10/2024 11:30 AM CDT Oncology Visit [facility] [address] [place] [address] Case Samuel MD [address] [place] [address] 484, [address] [place] [address] documented as of this encounter Goals Goal Patient Goal Type Associated Problems Recent Progress Patient-Stated? Author Pain Management General On track( 025 12:40 PM AIRCRAFT REFUELLER) Yes Juhi Benson, RN Note: Goal Statement: [...] Administered Medications Times are shown in AIRCRAFT REFUELLER. Scheduled Medication Order 06/05/2024 06/06/2024 06/07/2024 heparin [...] Out COVID-19 06/07/2024 06/07/2024 06/07/2024 12:50 PM AIRCRAFT REFUELLER documented as of this encounter Care Teams Billing Control Clerk Relationship Specialty Start Date End Date No Ref-Primary, Physician PCP - General 03/15/24 06/17/24 Mor Ramsey Medical Student 04/03/24 Case Samuel MD [address] [place] [address] 484, [address] [place] [address] Assigned Pediatric Specialist Provider 05/18/24 Juhi Benson, RN Specialty Painter Touch Up Hematology & Oncology 05/29/24 documented as of this encounter
--- OUTSIDE RECORDS SUMMARY | 2024-06-30 22:33 | XMS_ITS | Encounter Summary ---
Author Organization [facility] Address [address] [place] [address] Care Team Providers Care Bindery Machine Setter/Set Up Operator Name Role Phone R[employer]El[employer] Unavailable Unavailable Case Samuel MD Unavailable [phone] Juhi Benson RN Unavailable Unavailable Veronica Joseph MD Primary Care Provider [phone] Reason for Visit * Reason Comments Sickle Cell Pain Crisis Pt reports pain in back and b/l legs Encounter Details Date Type Department Care Team (Late st Contact Info) Description 06/23/2024 6:03 PM MANAGER ED - 06/23/2024 9:47 PM MANAGER ED Emergency [facility] Emergency Department [address] [place] [phone] Dayna Crane MD [address] [address] Sickle cell disease with crisis (H) Discharge [...] file Legal Sex Female 8:25 AM MANAGER ED Gender Identity Not on file Sexual Orientation Not on file documented as of this encounter Last Filed Vital Signs Vital Sign Reading Time Taken Comments Blood Pressure 114/66 06/23/2024 7:49 PM MANAGER ED Pulse 100 06/23/2024 5:53 PM MANAGER ED Temperature 36.7 C (98 F) 06/23/2024 7:49 PM MANAGER ED Respiratory Rate 16 06/23/2024 7:49 PM MANAGER ED Oxygen Saturation 99% 06/23/2024 7:49 PM MANAGER ED Inhaled Oxygen Concentration - - Weight 52.2 kg (115 lb) 06/23/2024 5:53 PM MANAGER ED Height 154.9 cm (5' 1) 06/23/2024 5:53 PM MANAGER ED Body Mass Index 21.73 06/23/2024 5:53 PM MANAGER ED documented in this encounter Discharge Instructions * Discharge Instructions* Dayna Crane MD - 06/23/2024 9:00 PM MANAGER ED Please make an appointment to follow up with Your Primary Care Provider in 2-3 days. GER ED GER ED * Attachments The following attachments cannot be sent through Care Everywhere. * Sickle Cell Crisis (Macedonian) documented in this encounter Medications at Time [...] 05/01/2024 naloxone (NARCAN) 4 MG/0.1ML nasal spray [place] 1 spray (4 mg) into one nostril [...] Booker - 06/23/2024 6:12 PM CST Bed: [facility] Expected date: Expected time: Means of arrival: Comments: X3 monitor: G42 GER ED * Melanie Menon RN - 06/23/2024 5:54 [...] WDL WDL Cognitive/Neuro/Behavioral WDL Cognitive/Neuro/Behavioral WDL WDL GER ED documented in this encounter Plan of Treatment Upcoming Encounters Date Type Department Care Team (Late st Contact Info) Description 07/10/2024 11:30 AM CDT Oncology Visit [facility] [address] [place] [address] Case Samuel MD [address] [place] [address], [address] [place] [address] documented as of this encounter Goals Goal Patient Goal Type Associated Problems Recent Progress Patient-Stated? Author Pain Management General On track( 025 12:40 PM MANAGER ED) Yes Juhi Benson, RN Note: Goal Statement: [...] PLATELETS AND DIFFERENTIAL STAT 06/23/2024 6:22 PM MANAGER ED CBC WITH PLATELETS & DIFFERENTIAL STAT 06/23/2024 6:22 PM MANAGER ED HCG QUALITATIVE STAT 06/23/2024 6:22 PM MANAGER ED DIFFERENTIAL STAT 06/23/2024 6:22 PM MANAGER ED COMPREHENSIVE METABOLIC PANEL STAT 06/23/2024 6:22 PM MANAGER ED documented in this encounter Results * (ABNORMAL) Manual Differential (06/23/2024 6:22 PM MANAGER ED) % Neutrophils 73 % 06/23/2024 7:05 PM MANAGER ED [facility] % Lymphocytes 24 % 06/23/2024 7:05 PM MANAGER ED [facility] % Monocytes 2 % 06/23/2024 7:05 PM MANAGER ED [facility] % Eosinophils 0 % 06/23/2024 7:05 PM MANAGER ED [facility] % Basophils 2 % 06/23/2024 7:05 PM MANAGER ED [facility] NRBCs per 100 WBC 12(H) <=0 % 06/23/2024 7:05 PM MANAGER ED [facility] Absolute Neutrophils 7.2 1.6 - 8.3 10e3/uL 06/23/2024 7:05 PM MANAGER ED [facility] Absolute Lymphocytes 2.3 0.8 - 5.3 10e3/uL 06/23/2024 7:05 PM MANAGER ED [facility] Absolute Monocytes 0.2 0.0 - 1.3 10e3/uL 06/23/2024 7:05 PM MANAGER ED [facility] Absolute Eosinophils 0.0 0.0 - 0.7 10e3/uL 06/23/2024 7:05 PM MANAGER ED [facility] Absolute Basophils 0.2 0.0 - 0.2 10e3/uL 06/23/2024 7:05 PM MANAGER ED [facility] Absolute NRBCs 1.2(H) <=0.0 10e3/uL 025 7:05 PM MANAGER ED [facility] RBC Morphology Confirmed RBC Indices 06/23/2024 7:05 PM MANAGER ED [facility] Platelet Assessment Automated Count Confirmed. Platelet morphology is normal. Automated Count Confirmed. Platelet morphology is normal. 06/23/2024 7:05 PM MANAGER ED [facility] Polychromasia Slight(A) None Seen 06/23/2024 7:05 PM MANAGER ED [facility] Sickle Cells Slight(A) None Seen 06/23/2024 7:05 PM MANAGER ED [facility] Target Cells Slight(A) None Seen 06/23/2024 7:05 PM MANAGER ED [facility] Blood BLOOD SPECIMEN / Unknown Venipuncture / Unknown 06/23/2024 6:22 PM MANAGER ED 06/23/2024 6:34 PM MANAGER ED us Dayna Crane MD LAB - BLOOD ORDERABLES Final Re sult [facility] [address] [facility], [address] [place] [address] * (ABNORMAL) CBC with platelets and differential (06/23/2024 6:22 PM MANAGER ED) [facility] WBC Count 9.8 4.0 - 11.0 10e3/uL 06/23/2024 6:45 PM MANAGER ED [facility] RBC Count 2.49(L) 3.80 - 5.20 10e6/uL 06/23/2024 6:45 PM MANAGER ED [facility] Hemoglobin 8.0(L) 11.7 - 15.7 g/dL 06/23/2024 6:45 PM MANAGER ED [facility] Hematocrit 24.2(L) 35.0 - 47.0 % 06/23/2024 6:45 PM MANAGER ED [facility] MCV 97 78 - 100 fL 06/23/2024 6:45 PM MANAGER ED [facility] MCH 32.1 26.5 - 33.0 pg 06/23/2024 6:45 PM MANAGER ED [facility] MCHC 33.1 31.5 - 36.5 g/dL 06/23/2024 6:45 PM MANAGER ED [facility] RDW 18.8(H) 10.0 - 15.0 % 06/23/2024 6:45 PM MANAGER ED [facility] Platelet Count 482(H) 150 - 450 10e3/uL 06/23/2024 6:45 PM MANAGER ED [facility] Blood BLOOD SPECIMEN / Unknown Venipuncture / Unknown 06/23/2024 6:22 PM MANAGER ED 06/23/2024 6:34 PM MANAGER ED Dayna Crane MD LAB - BLOOD ORDERABLES Final Re sult Performing Organization Address City/[facility]/ZIP Co de Phone Number [facility] [address] [facility], [address] * HCG qualitative Blood (06/23/2024 6:22 PM MANAGER ED) Pathologist [facility] hCG Serum Qualitative Negative Negative JARET 06/23/2024 6:49 PM MANAGER ED [facility] Comment:This test is for scr eening purposes. Results should be interpreted along with the clinical picture. Confirmation testing is available if warranted by ordering [id number], HCG Quantitative . Blood BLOOD SPECIMEN / Unknown Venipuncture / Unknown 06/23/2024 6:22 PM MANAGER ED 06/23/2024 6:38 PM MANAGER ED Dayna Crane MD LAB - BLOOD ORDERABLES Final Re sult Performing Organization Address City/[facility]/ZIP Co de Phone Number [facility] [address] [facility], [address] [id number] * (ABNORMAL) Comprehensive metabolic panel (06/23/2024 6:22 PM MANAGER ED) Pathologist [facility] Sodium 140 135 - 145 mmol/L 06/23/2024 7:13 PM MANAGER ED [facility] Potassium 4.3 3.4 - 5.3 mmol/L 06/23/2024 7:13 PM MANAGER ED [facility] Carbon Dioxide (CO2) 24 22 - 29 mmol/L 06/23/2024 7:13 PM MANAGER ED [facility] Anion Gap 7 7 - 15 mmol/L 06/23/2024 7:13 PM MANAGER ED [facility] Urea Nitrogen 6.8 6.0 - 20.0 mg/dL 06/23/2024 7:13 PM MANAGER ED [facility] Creatinine 0.61 0.51 - 0.95 mg/dL 06/23/2024 7:13 PM MANAGER ED [facility] GFR Estimate >90 >60 mL/min/1.7 3m2 06/23/2024 7:13 PM MANAGER ED [facility] Comment:eGFR calculated 2020 CKD-EPI equation. Calcium 8.8 8.8 - 10.4 mg/dL 06/23/2024 7:13 PM MANAGER ED [facility] Chloride 109(H) 98 - 107 mmol/L 06/23/2024 7:13 PM MANAGER ED [facility] Glucose 102(H) 70 - 99 mg/dL 06/23/2024 7:13 PM MANAGER ED [facility] Alkaline Phosphatase 125 40 - 150 U/L 06/23/2024 7:13 PM MANAGER ED [facility] AST 84(H) 0 - 45 U/L 06/23/2024 7:13 PM MANAGER ED [facility] ALT 69(H) 0 - 50 U/L 06/23/2024 7:13 PM MANAGER ED [facility] Protein Total 7.8 6.4 - 8.3 g/dL 06/23/2024 7:13 PM MANAGER ED [facility] Albumin 4.2 3.5 - 5.2 g/dL 06/23/2024 7:13 PM MANAGER ED [facility] Bilirubin Total 1.5(H) <=1.2 mg/dL 06/23/2024 7:13 PM MANAGER ED [facility] Blood BLOOD SPECIMEN / Unknown Venipuncture / Unknown 06/23/2024 6:22 PM MANAGER ED 06/23/2024 6:34 PM MANAGER ED us Dayna Crane MD LAB - BLOOD ORDERABLES Final Re sult [facility] [address] [facility], [address] [place] [address], [facility] documented in this encounter Visit [...] For 1 dose $Given 06/23/2024 7:43 PM MANAGER ED 25 mg heparin lock flush 100 unit/mL injection 100 Units 100 Units, Intravenous, ONCE, On Wed06/23/24 at 2100, For 1 dose $Given 06/23/2024 9:25 PM MANAGER ED 100 Units hydromorphone (DILAUDID) injection 2 mg 2 mg, Intravenous, EVERY 1 HOUR PRN, severe pain, Starting on Wed06/23/24 at 1806, X 3 max $Given 06/23/2024 8:46 PM MANAGER ED 2 mg $Given 06/23/2024 7:43 PM MANAGER ED 2 mg $Given 06/23/2024 6:28 PM MANAGER ED 2 mg sodium chloride 0.9% BOLUS 1,000 mL Intravenous, 1,000 mL, ONCE, at 1,000 mL/hr, Administer over 1 Hours, On Wed06/23/24 at 1810, For 1 dose $New Bag 06/23/2024 6:28 PM MANAGER ED 1,000 mLs 1000 mL/hr documented in this encounter Active and Recently Administered Medications Times are shown in MANAGER ED. Scheduled Medication Order 06/21/2024 06/22/2024 06/23/2024 diphenhydrAMINE (BENADRYL) capsule 25 mg (COMPLETED) 25 mg, Oral, ONCE, On Wed06/23/24 at 1920, For 1 dose 194 ($Given - Provi nas: Mason Moon RN) [...] RN) documented in this encounter Care Teams Bindery Machine Setter/Set Up Operator Relationship Specialty Start Date End Date Veronica Joseph MD [address] [place] [address] PCP - General Family Medicine 06/18/24 Mor Ramsey Medical Student 04/03/24 Case Samuel MD [address] [place] [address], [address] [place], [place] [address] Assigned Pediatric Specialist Provider 05/18/24 Juhi Benson, SOFIA Specialty Manufacturing Shift Supervisor Hematology & Oncology 05/29/24 documented as of this encounter
--- OUTSIDE RECORDS SUMMARY | 2024-06-30 22:33 | XMS_ITS | Encounter Summary ---
Author Organization [facility] Address [address] [place] [address]. [place] [address] Care Team Providers Care On Air Talent Name Role Phone No Ref-Primary, Physician Primary Care Provider Mor Ramsey Unavailable Unavailable Case Samuel MD Unavailable [phone] Juhi Benson RN Unavailable Unavailable Encounter Details [...] file Legal Sex Female 8:25 AM SUPERVISOR PAPER MACHINE Gender Identity Not on file Sexual Orientation Not on file documented as of this encounter Plan of Treatment Upcoming Encounters Date Type Department Care Team ([facility] st Contact Info) Description 07/10/2024 11:30 AM CDT Oncology Visit [facility] [address] [place] [address] Case Samuel MD [address] [place] [address] 484, [address] [place], [place] [id number] documented as of this encounter Goals Goal Patient Goal Type Associated Problems Recent Progress Patient-Stated? Author Pain Management General On track( 025 12:40 PM SUPERVISOR PAPER MACHINE) Yes Juhi Benson, RN Note: [...] Indicated Resolved Time Rule Out COVID-19 06/07/2024 06/07/202406/07/2024 12:50 PM SUPERVISOR PAPER MACHINE Rule Out COVID-19 06/07/2024 06/07/2024 06/07/2024 3:32 PM SUPERVISOR PAPER MACHINE documented as of this encounter Care Teams On Air Talent Relationship Specialty Start Date End Date No Ref-Primary, Physician PCP - General 03/15/24 06/17/24 Mor Ramsey Medical Student 04/03/24 Case Samuel MD [address] [place] [address], [address] [place] [address] Assigned Pediatric Specialist Provider 05/18/24 Juhi Benson, RN Specialty Assembler Semiconductor Hematology & Oncology 05/29/24 documented as of this encounter
--- OUTSIDE RECORDS SUMMARY | 2024-06-30 22:33 | XMS_ITS | Encounter Summary ---
Author Organization [facility] Address [address] [place] [address]. [place] [address] Care Team Providers Care Time Motion Analyst Name Role Phone No Ref-Primary, Physician Primary Care Provider Mor Ramsey Unavailable Unavailable Case Samuel MD Unavailable [phone] Juhi Benson RN Unavailable Unavailable Reason for Visit * Reason Comments Infusion * Auth/Cert Specialty Diagnoses / Procedures Referred By Shahid t Referred To Contact EMERGENCY MEDICINE Diagnoses Acute chest pain Sickle cell pain crisis (H) [facility] Emergency Department [address] [place] [address] Phone: tel: Referral ID Status Reason Start Date Expiration Date Visits Re quested Visits Authorized [id number] 1 1 Encounter Details Date Type Department Care Team ([facility] st Contact Info) Description 06/09/2024 11:30 AM DECOMMISSIONING WELL SITE MANAGER Infusion Therapy Visit [facility] [address] [place] [address] Case Samuel MD [address] [facility] [address], [address] [place] [address] Sickle cell pain crisis (H) [...] Answer Date Recorded Do you have housing? (aSe montes is defined as stable permanent housing [...] on file Legal Sex Female 8:25 AM DECOMMISSIONING WELL SITE MANAGER Gender Identity Not on file Sexual Orientation Not on file documented as of this encounter Last Filed Vital Signs Vital Sign Reading Time Taken Comments Blood Pressure 123/75 06/09/2024 11:45 AM DECOMMISSIONING WELL SITE MANAGER Pulse 87 06/09/2024 11:45 AM DECOMMISSIONING WELL SITE MANAGER Temperature 37 C (98.6 F) 06/09/2024 11:45 AM DECOMMISSIONING WELL SITE MANAGER Respiratory Rate 16 06/09/2024 11:45 AM DECOMMISSIONING WELL SITE MANAGER Oxygen Saturation 100% 06/09/2024 11:45 AM DECOMMISSIONING WELL SITE MANAGER Inhaled Oxygen Concentration - - Weight - - Height - - Body Mass Index - - documented in this encounter Progress Notes * Lynne Camacho, RN - 06/09/2024 11:30 AM CST Infusion Nursing Note: Gianna Hernández presents today for IV fluids + Dilaudid. Patient seen by provider today: No Senior Sales Director present during visit today: Not Applicable. Note: Rating pain at an 8 out of 10 upon arrival. Has a local intermodal truck driver. Intravenous Access: Implanted Port. Treatment [...] all questions answered. AVS to patient via M[facility] Corta[employer]. Patient will return 06/13 for next appointment. Patient discharged in stable condition accompanied by: self and boyfriend. Departure Mode: Ambulatory. Lynne Camacho RN MMISSIONING WELL SITE MANAGER documented in this encounter Plan of Treatment Upcoming Encounters Date Type Department Care Team (Late st Contact Info) Description 07/10/2024 11:30 AM CDT Oncology Visit [facility] [address] [place] [address] Case Samuel MD [address] [place] [address], [address] [place], [place] [address] documented as of this encounter Goals Goal Patient Goal Type Associated Problems Recent Progress Patient-Stated? Author Pain Management General On track( 025 12:40 PM DECOMMISSIONING WELL SITE MANAGER) Yes Juhi Benson, SOFIA Note: Goal [...] pain crisis (H) $Given 06/09/2024 2:03 PM DECOMMISSIONING WELL SITE MANAGER 5 mLs hydromorphone (DILAUDID) injection 2 mg 2 mg, Intravenous, EVERY 1 HOUR PRN, severe pain, moderate pain, Starting on Wed06/09/24 at 1111, For 3 dosesIndications:Sickle cell pain crisis (H) $Given 06/09/2024 1:58 PM DECOMMISSIONING WELL SITE MANAGER 2 mg $Given 06/09/2024 12:52 PM DECOMMISSIONING WELL SITE MANAGER 2 mg $Given 06/09/2024 11:53 AM DECOMMISSIONING WELL SITE MANAGER 2 mg lactated ringers BOLUS 1,000 mL Intravenous, 1,000 mL, ONCE, at 500 mL/hr, Administer over 2 Hours, On Wed06/09/24 at 1115, For 1 doseIndications:Sickle cell pain crisis (H) $New Bag 06/09/2024 11:45 AM DECOMMISSIONING WELL SITE MANAGER 1,000 mLs 500 mL/hr sodium chloride (PF) [...] pain crisis (H) $Given 06/09/2024 11:45 AM DECOMMISSIONING WELL SITE MANAGER 20 mLs documented in this encounter Care Teams Time Motion Analyst Relationship Specialty Start Date End Date No Ref-Primary, Physician PCP - General 03/15/24 06/17/24 Mor Ramsey Medical Student 04/03/24 Case Samuel MD [address] [place] [address] 484, [address] [place] [address] Assigned Pediatric Specialist Provider 05/18/24 Juhi Benson, RN Specialty Ambulatory Care Nurse Hematology & Oncology 05/29/24 documented as of this encounter
--- OUTSIDE RECORDS SUMMARY | 2024-06-30 22:33 | XMS_ITS | Encounter Summary ---
Author Organization [facility] Address [address] [place] [address]. 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 Call member services at your health plan with any benefit or coverage questions. HOUSE ATTENDANT Reason for Visit * Reason Comments Sickle Cell Pain Crisis * Auth/Cert Specialty Diagnoses / Procedures Referred By Contkameron t Referred To Contact EMERGENCY MEDICINE Diagnoses Acute chest pain Sickle cell pain crisis (H) [facility] Emergency Department [address] [place] [address] Phone: tel: Referral ID Status Reason Start Date Expiration Date Visits Re quested Visits Authorized [id number] 1 1 Encounter Details Date Type Department Care Team (Latest Contact Info) Description 06/12/2024 6:38 PM FUEL HOUSE ATTENDANT - 06/15/2024 10:48 AM FUEL HOUSE ATTENDANT [facility] Emergency Department [address] [place] [phone] Abdelrahman Goddard MD [address] [place] [address] Andres Jain DO Duffy, Briar, MD [address] [facility] [address] [place] [address] 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) [...] on file Legal Sex Female 8:25 AM FUEL HOUSE ATTENDANT Gender Identity Not on file Sexual Orientation Not on file documented as of this encounter Last Filed Vital Signs Vital Sign Reading Time Taken Comments Blood Pressure 99/64 06/15/2024 6:10 AM FUEL HOUSE ATTENDANT Pulse 75 06/15/2024 6:10 AM FUEL HOUSE ATTENDANT Temperature 36.7 C (98 F) 06/15/2024 6:10 AM FUEL HOUSE ATTENDANT Respiratory Rate 16 06/15/2024 6:10 AM FUEL HOUSE ATTENDANT Oxygen Saturation 100% 06/15/2024 6:10 AM FUEL HOUSE ATTENDANT Inhaled Oxygen Concentration - - Weight - - Height - - Body Mass Index - - documented in this encounter Discharge Summaries * Rl Elias MD - 06/15/2024 8:58 AM CST [facility] Discharge Summary - Medicine & Pediatrics Date of Admission: 06/12/2024 Date of Discharge: 06/15/2024 Discharging Provider: Dr Rl Elias, Dr German Hall Discharge Service: Medicine Service, [facility] TEAM 1 Discharge Diagnoses Acute sickle cell [...] 5 day course of antibiotics - Continue [employer] hydroxyurea - Continue [employer] folic acid - Continue albuterol inhaler QID given in the ED - Patient should follow up with her PCP upon discharge in 2-3 weeks - Patient should restart pain plan as taking at home with PO hydromorphone 2 mg Q6H PRN for pain upon discharge #Anxiety #Nausea - Continue [employer] Fluoxetine 10 mg daily Consultations This Hospital Stay HEMATOLOGY ADULT IP CONSULT CARE MANAGEMENT / SOCIAL WORK IP CONSULT Code Status Full Code The patient was discussed with Dr. Hall. MD Oliver LANGLEY [address] [place] [address] EMERGENCY DEPARTMENT [address] [facility] [id number] Physical Exam Vital Signs: Temp: 98 ??F [...] your primary care provider & your primary Movement Assembly Final Inspector as indicated. Activity Your activity upon discharge: [...] Narrative EXAM: XR CHEST 2 VIEWS LOCATION: [facility] DATE: 06/12/2024 INDICATION: CP COMPARISON: 06/03/2024, [...] E-Prescribe naloxone (NARCAN) 4 MG/0.1ML nasal spray [place] 1 spray (4 mg) into one nostril [...] German Hall MD at 06/22/2024 12:17 PM FUEL HOUSE ATTENDANT HOUSE ATTENDANT HOUSE ATTENDANT Associated attestation - German Hall MD - 06/22/2024 12:17 PM FUEL HOUSE ATTENDANT Attestation: This patient has been seen and [...] 05/01/2024 naloxone (NARCAN) 4 MG/0.1ML nasal spray [place] 1 spray (4 mg) into one nostril [...] Overall, I spent 35 minutes today (DOS) [id number] and/or coordinating care as documented above and specifically listed as below: --Reviewing documentation related to patient's history and this current admission available in Spacious --Review and clinical interpretation of pertinent laboratory test results and radiology reports from this admission --Discussion of the patient's case with the members of the Hematology Consult Team --Discussion with the patient --Documentation in the electronic health record HOUSE ATTENDANT * Rl Elias MD - 06/14/2024 7:08 [...] Service (when I saw the patient): 06/14/24 [facility] Progress Note - [facility] Date of Admission: 06/12/2024 [...] 7-9, most recent Hbg 8.8 on 06/07 [employer]. Hb.5 -> 6.4 -> 6.8 -> 6.9 Plan: - Blood cultures pending x2 - NGTD - CTM hemoglobin daily - Ordered Voltaren gel, lidocaine patches, and icy hot PRN - Continue Ceftriaxone and Azithromycin for ppx (06/12 -*), consider transition to PO this afternoon - Continue [employer] hydroxyurea - Continue [employer] folic acid - Continue IS - type and screen ordered, consented for blood on 06/13 - no indication for transfusion unless hemodynamically unstable - Hematology consulted, appreciate recs - Hydromorphone 2 mg IV Q2H scheduled--titrate within 24-48 hours - Maintenance LR - Transfusion not recommended at this time - albuterol inhaler q6h, zofran, benadryl, docusate, senna PRN #Anxiety #Nausea - Continue [employer] Fluoxetine - Benadryl PRN per Pain Plan [...] Nivia Carvajal, MS3 Medical Student Medicine Service, [facility] TEAM [address] [place] [address] Securely message with [employer] (more info) Text page via [facility] Paging/Directory See signed in provider for up [...] German Hall MD at 06/19/2024 8:50 AM FUEL HOUSE ATTENDANT HOUSE ATTENDANT HOUSE ATTENDANT HOUSE ATTENDANT Associated attestation - German Hall MD - 06/19/2024 8:50 AM FUEL HOUSE ATTENDANT Attestation: This patient has been seen and [...] Service (when I saw the patient): 06/13/24 [facility] Progress Note - Medicine Service, [facility] TEAM 1 Date of Admission: 06/12/2024 Assessment [...] 7-9, most recent Hbg 8.8 on 06/07 [employer]. Hb.5 -> 6.4 Plan: -Blood cultures pending x2 -CTM hemoglobin daily -Continue Ceftriaxone and Azithromycin for ppx (06/12 -*) -Continue [employer] hydroxyurea -Continue [employer] folic acid - type and screen ordered, consented for blood - no indication for transfusion unless hemodynamic instability - Hematology consulted, appreciate recs -Hydromorphone 2 mg IV Q3H scheduled--titrate within 24-48 hours -Maintenance LR -Transfusion not recommended at this time - zofran, benadryl, docusate, senna PRN #Anxiety #Nausea -Continue [employer] Fluoxetine -Benadryl PRN per Pain Plan -Zofran [...] Nivia Carvajal, MS3 Medical Student Medicine Service, [facility] TEAM [address] [place] [address] Securely message with [employer] (more info) Text page via [employer] Paging/Directory See signed in provider for up [...] Narrative EXAM: XR CHEST 2 VIEWS LOCATION: [facility] DATE: 06/12/2024 INDICATION: CP COMPARISON: 06/03/2024, [...] German Hall MD at 06/14/2024 8:25 AM FUEL HOUSE ATTENDANT HOUSE ATTENDANT HOUSE ATTENDANT Associated attestation - German Hall MD - 06/14/2024 8:25 AM FUEL HOUSE ATTENDANT Attestation: This patient has been seen and evaluated by me, German Hall MD. Discussed with the house staff team or resident(s) and agree with the findings and plan in this note. I have reviewed today's Medications, Vital Signs, and Labs. DOS 06/13 * Mary Flores MD - 06/12/2024 8:20 PM CST call center consultant Hematology fellow note 29F Sickle cell disease [...] Flores MD MS Hematology fellow, PGY5 Pager: [phone] Cosigned by Kirstin Long MD at 06/13/2024 7:25 AM FUEL HOUSE ATTENDANT HOUSE ATTENDANT HOUSE ATTENDANT HOUSE ATTENDANT Associated attestation - Kirstin Long MD - 06/13/2024 7:25 AM FUEL HOUSE ATTENDANT Physician Attestation I discussed patient overnight with fellow police communications operator. I agree with plan as outlined. I did not see thepatient on this date. Kirstin Long MD/PhD documented in this encounter H&P Notes * Laquita Kelley MD - 06/12/2024 9:37 PM CST [facility] History and Physical - Medicine Service, [facility] TEAM Date of Admission: 06/12/2024 Assessment & [...] of avascular necrosis of left hip -Continue [employer] hydroxyurea -Continue [employer] folic acid -Transfuse for Hb<7 #Stroke reported [...] . Laquita Kelley MD Medicine Service, [facility] Securely message with [employer] (more info) Text page via [facility] Paging/Directory See signed in provider for [...] 4 MG/0.1ML nasal spray No No Sig: [place] 1 spray (4 mg) into one nostril [...] Andres Jain DO at 06/12/2024 10:27 PM FUEL HOUSE ATTENDANT HOUSE ATTENDANT HOUSE ATTENDANT HOUSE ATTENDANT HOUSE ATTENDANT Associated attestation - Andres Jain DO - 06/12/2024 10:27 PM FUEL HOUSE ATTENDANT Physician Attestation I saw this patient with [...] Communication Assessment Patient's communication style: spoken language (Hungarian or Bilingual) Cognitive Cognitive/Neuro/Behavioral: WDL Living Environment: People in home: child(jese), dependent, significant other Vineet and 2 years old daughter Current living Arrangements: house Able to return to prior arrangements: Family/Social Support: Care provided by: self Provides care for: Marital Status: Domestic Partnership Support system: Significant Other Vnieet Description of Support System: Supportive, Involved Current [...] Depression: Not at risk (04/11/2024) Received from [facility] PHQ-2 PHQ-2 TOTAL SCORE: 1 Housing Stability: [...] Social Connections: Socially Integrated (03/28/2024) Received from [facility] Social Connections Do you often feel lonely or isolated from those around you?: 0 Health Literacy: Not on file Functional Status: Prior to admission patient needed assistance: Dependent ADLs:: Independent Dependent IADLs:: Independent Mental Health Status: Mental Health Status: No Current Concerns Chemical Dependency Status: Chemical Dependency Status: No Current Concerns Values/Beliefs: Spiritual, Cultural Beliefs, Pentecostal Practices, Values that affect care: no Discussed [...] Katheryn Carter RN, PHN, BSN Float Nurse Screen And Cyclone Repairer Covering for Unit ED Phone [phone] HOUSE ATTENDANT * Kirstin Long MD - 06/13/2024 10:17 AM CSTAssociated Order(s): HEMATOLOGY ADULT IP CONSULT Images from the original note were not included. Hematology Consult Note Date of Service: 06/13/2024 Patient: Gianna Hernández Admission Date: 06/12/2024 Hospital Day # 1 Hematology Diagnosis: Sickle Cell Disease - HbSS Primary Outpatient Movement Assembly Final Inspector: Dr Samuel Current Treatment Plan: Inpatient: Opioid: 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, [facility] Functional asplenia Gallstones Hb-SS disease [...] 11 naloxone (NARCAN) 4 MG/0.1ML nasal spray [place] 1 spray (4 mg) into one nostril [...] Imaging EXAM: XR CHEST 2 VIEWS LOCATION: [facility] DATE: 06/12/2024 INDICATION: CP COMPARISON: 06/03/2024, 05/27/2024 IMPRESSION: A few faint peripheral reticulonodular opacities in the mid and lower lungs again seen.Lungs otherwise clear. No pleural effusion. No pneumothorax. Borderline cardiac enlargement unchanged. Port anterior right chest wall with right IJ central venous catheter tip low SVC. Port anterior left chest wall with left IJ central venous catheter tip low SVC. HOUSE ATTENDANT documented in this encounter ED Notes * Juhi Crump RN - 06/12/2024 6:55 PM CST Bed: [facility] Expected date: Expected time: Means of arrival: Comments: SICK HOUSE ATTENDANT * Lebron Aponte RN - 06/12/2024 6:34 PM CST Pt ambulatory to triage with CC of sickle cell pain in the L upper anterior chest. Was seen for this at [facility] last night. Reports interventions at [facility] were helpful, however pain has returned. Patient reports taking 4mg po Dilaudid at 1500 with partial relief of pain but is still severe. Contacted site head and was instructed to come to [facility] EB. Reports SOB a little bit. It hurts to take a deep breath. Denies dizziness. Triage Assessment (Adult) Row Name 06/12/24 2490 Triage Assessment Airway WDL WDL Respiratory WDL [...] 5-->(V5) oriented Lester Coma Scale Score 15 HOUSE ATTENDANT * Abdelrahman Goddard MD - 06/12/2024 6:20 PM CST Images from the original note were not included. [facility] ([facility]) 06/12/24 ED PROVIDER NOTE History No [...] background: 29 yo F, recently moved from [place] Sickle Cell Disease History Primary Movement Assembly Final Inspector/UPHOLSTERY HANDLER/PA: Lizzie Genotype: SS Acute Pain Crisis Treatment: 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, [facility] Functional asplenia Gallstones Hb-SS disease [...] chest pain Rhythm: normal sinus Rate: 94BPM [place]: Normal Ectopy: none Conduction: normal ST Segments/ [...] Rate 102 BPM Atrial Rate 102 BPM ME Interval 158 ms QRS Duration 78 ms QT 348 ms QTc 453 ms P [place] 39 degrees R AXIS 66 degrees T [place] 33 degrees Interpretation ECG Sinus tachycardia Nonspecific T wave abnormality Abnormal ECG When compared with ECG of 05-Jun-2024 11:40, No significant change was found Confirmed by SEE ED PROVIDER NOTE FOR, ECG INTERPRETATION ([id number]), editorial intern SELMA GARRISON ([id number]) on 06/11/2024 9:05:27 PM Medications - No [...] Hernadez, am serving as a trained medical field representative to document services personally performed by Abdelrahman Goddard MD, based on the provider's statements to me. I, Abdelrahman Goddard MD, was physically present and have reviewed and verified the accuracy of this note documented by Jovanny Hernadez. Abdelrahman Goddard MD [facility] EMERGENCY DEPARTMENT 06/12/2024 Abdelrahman Goddard MD 06/12/242023 HOUSE ATTENDANT documented in this encounter Miscellaneous Notes * Plan of Care - Clay Avina RN - 06/15/2024 9:55 AM CST Goal Outcome Evaluation: Plan of Care Reviewed With: patient Overall Patient Progress: improving 4x A/O. VSS. RA. Independent. AVS reviewed, questions answered. Port de accessed with saline flush and heparin locked. HOUSE ATTENDANT * Plan of Care - Kathy Levy RN - 06/15/2024 6:22 AM CST Goal Outcome Evaluation: Plan of Care Reviewed With: patient Overall Patient Progress: improving Pt is alert anf oriented x4. VSS, on room air with no SOB noted. On pain management for sickle cellcrisis. Tolerating diet well with no n/v. L chest port infusing intermittent IV ABT. Voiding well. Last BM [employer]. Pt is up ad chandler. Will continue with plan of care. HOUSE ATTENDANT * Plan of Care - Clay Avina RN - 06/14/2024 5:02 PM CST Goal Outcome Evaluation: Plan of Care Reviewed With: patient Overall Patient Progress: improving 4x A/O. VSS. Independent. Pain controlled with schedule q2hr IV dilaudid. Tolerating regular diet. Voiding spontaneously. Had nausea in AM, relieved with Zofran. Port SL. HOUSE ATTENDANT * Pharmacy-Admission Medication History - Lorenza Valdes - 06/14/2024 11:19 AM CST Electrical Fitter Admission Medication History Admission medication history is complete. The information provided in this note is only as accurateas the sources available at the time of the update. Information Source(s): Patient and CareEverywhere/SureScripts via in-person Pertinent Information: Medication reconciliation completed at bedside with patient. Patient was a good historian of her medication names, doses, frequencies, and last doses. Changes made to [employer] medication list: Added: Epi-pen: patient has pen available, but has not used recently. Ibuprofen: OTC product used PRN for pain. Benadryl: OTC product used PRN for itching due to hydromorphone. Deleted: None Changed: None Allergies reviewed with patient and updates made in EHR: yes Medication History Completed By: Lorenza Valdes 06/14/2024 11:19 AM [employer] Med List Medication Sig Last Dose/Taking diphenhydrAMINE [...] Morning naloxone (NARCAN) 4 MG/0.1ML nasal spray [place] 1 spray (4 mg) into one nostril alternating nostrilsas needed for opioid reversal (for opiate overdose if not breathing and unconscious. have your family member watch video on how to use/read information sheet). every 2-3 minutes until assistance arrives Taking As Needed Cosigned by Terrell Fernandez RPH at 06/15/2024 10:33 AM FUEL HOUSE ATTENDANT HOUSE ATTENDANT HOUSE ATTENDANT Associated attestation - Terrell Fernandez RPH - 06/15/2024 10:33 AM FUEL HOUSE ATTENDANT I have read and agree with the student's note. Terrell Fernandez, PGY-1 Hot Car Charger * Provider Notification - Kiki Caal RN - 06/13/2024 7:27 PM FUEL HOUSE ATTENDANT Notified providers Nivia Carvajal, Laquita Kelley and Rl Elias of critical Hgb 6.8 at 1920. No new orders HOUSE ATTENDANT * Plan of Care - Katheryn Carter RN - 06/13/2024 12:44 PM CST Goal Outcome Evaluation: Plan of Care Reviewed With: patient Overall Patient Progress: improvingOverall Patient Progress: improving Outcome Evaluation: Plan: TBD Katheryn Carter RN, PHN, BSN Float Nurse Screen And Cyclone Repairer Covering for Unit ED Phone [phone] HOUSE ATTENDANT * Plan of Care - Shauna Cuadra [...] with POC. Notify primary team with changes. 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 Author Pain Management General On track( 025 12:40 PM FUEL HOUSE ATTENDANT) Yes Juhi Benson, SOFIA Note: Goal [...] PLATELETS AND DIFFERENTIAL STAT 06/15/2024 6:09 AM FUEL HOUSE ATTENDANT CBC WITH PLATELETS & DIFFERENTIAL STAT 06/15/2024 6:09 AM FUEL HOUSE ATTENDANT BASIC METABOLIC PANEL STAT 06/15/2024 6:09 AM FUEL HOUSE ATTENDANT XR CHEST PORT 1 VIEW STAT 06/14/2024 8:46 AM FUEL HOUSE ATTENDANT BASIC METABOLIC PANEL STAT 06/14/2024 7:08 AM FUEL HOUSE ATTENDANT CBC WITH PLATELETS STAT 06/14/2024 7: 08 AM FUEL HOUSE ATTENDANT CBC WITH PLATELETS STAT 06/13/2024 6: 32 PM FUEL HOUSE ATTENDANT RBC AND PLATELET MORPHOLOGY STAT 06/13/2024 6:00 AM FUEL HOUSE ATTENDANT CBC WITH PLATELETS AND DIFFERENTIAL STAT 06/13/2024 6:00 AM FUEL HOUSE ATTENDANT CBC WITH PLATELETS & DIFFERENTIAL STAT 06/13/2024 6:00 AM FUEL HOUSE ATTENDANT BASIC METABOLIC PANEL STAT 06/13/2024 5:59 AM FUEL HOUSE ATTENDANT RESPIRATORY PANEL PCR STAT 06/12/2024 9:34 PM FUEL HOUSE ATTENDANT BLOOD CULTURE STAT 06/12/2024 8:46 PM FUEL HOUSE ATTENDANT BLOOD CULTURE STAT 06/12/2024 8:46 PM FUEL HOUSE ATTENDANT XR CHEST 2 VIEWS STAT 06/12/2024 7:38 PM FUEL HOUSE ATTENDANT RBC AND PLATELET MORPHOLOGY STAT 06/12/2024 7:17 PM FUEL HOUSE ATTENDANT CBC WITH PLATELETS AND DIFFERENTIAL STAT 06/12/2024 7:17 PM FUEL HOUSE ATTENDANT TYPE AND SCREEN, ADULT Routine 06/12/2024 7:17 PM FUEL HOUSE ATTENDANT TROPONIN T, HIGH SENSITIVITY STAT 06/12/2024 7:17 PM FUEL HOUSE ATTENDANT CBC WITH PLATELETS & DIFFERENTIAL STAT 06/12/2024 7:17 PM FUEL HOUSE ATTENDANT INR STAT 06/12/2024 7:17 PM FUEL HOUSE ATTENDANT BLOOD GAS VENOUS STAT 06/12/2024 7:17 PM FUEL HOUSE ATTENDANT ABO/RH TYPE AND SCREEN Add-On 06/12/2024 7:17 PM FUEL HOUSE ATTENDANT BASIC METABOLIC PANEL STAT 06/12/2024 7:17 PM FUEL HOUSE ATTENDANT EKG 12-LEAD, TRACING ONLY STAT 06/12/2024 6:37 PM FUEL HOUSE ATTENDANT documented in this encounter Results * (ABNORMAL) CBC with platelets and differential (06/15/2024 6:09 AM FUEL HOUSE ATTENDANT) [facility] WBC Count 11.8(H) 4.0 - 11.0 10e3/uL 06/15/2024 6:36 AM FUEL HOUSE ATTENDANT [facility] RBC Count 2.27(L) 3.80 - 5.20 10e6/uL 06/15/2024 6:36 AM FUEL HOUSE ATTENDANT [facility] Hemoglobin 7.2(L) 11.7 - 15.7 g/dL 06/15/2024 6:36 AM FUEL HOUSE ATTENDANT [facility] Hematocrit 20.4(L) 35.0 - 47.0 % 06/15/2024 6:36 AM FUEL HOUSE ATTENDANT [facility] MCV 90 78 - 100 fL 06/15/2024 6:36 AM FUEL HOUSE ATTENDANT [facility] MCH 31.7 26.5 - 33.0 pg 06/15/2024 6:36 AM FUEL HOUSE ATTENDANT [facility] MCHC 35.3 31.5 - 36.5 g/dL 06/15/2024 6:36 AM FUEL HOUSE ATTENDANT [facility] RDW 19.0(H) 10.0 - 15.0 % 06/15/2024 6:36 AM FUEL HOUSE ATTENDANT [facility] Platelet Count 500(H) 150 - 450 10e3/uL 06/15/2024 6:36 AM FUEL HOUSE ATTENDANT [facility] % Neutrophils 54 % 06/15/2024 6:36 AM FUEL HOUSE ATTENDANT [facility] % Lymphocytes 31 % 06/15/2024 6:36 AM FUEL HOUSE ATTENDANT [facility] % Monocytes 9 % 06/15/2024 6:36 AM FUEL HOUSE ATTENDANT [facility] % Eosinophils 5 % 06/15/2024 6:36 AM FUEL HOUSE ATTENDANT [facility] % Basophils 2 % 06/15/2024 6:36 AM FUEL HOUSE ATTENDANT [facility] % Immature Granulocytes 1 % 06/15/2024 6:36 AM FUEL HOUSE ATTENDANT [facility] NRBCs per 100 WBC 2(H) <1 /100 025 6:36 AM FUEL HOUSE ATTENDANT [facility] Absolute Neutrophils 6.3 1.6 - 8.3 10e3/uL 06/15/2024 6:36 AM FUEL HOUSE ATTENDANT [facility] Absolute Lymphocytes 3.6 0.8 - 5.3 10e3/uL 06/15/2024 6:36 AM FUEL HOUSE ATTENDANT [facility] Absolute Monocytes 1.0 0.0 - 1.3 10e3/uL 06/15/2024 6:36 AM FUEL HOUSE ATTENDANT [facility] Absolute Eosinophils 0.6 0.0 - 0.7 10e3/uL 06/15/2024 6:36 AM FUEL HOUSE ATTENDANT [facility] Absolute Basophils 0.2 0.0 - 0.2 10e3/uL 06/15/2024 6:36 AM FUEL HOUSE ATTENDANT [facility] Absolute Immature Granulocytes 0.1 <=0.4 10e3/uL 06/15/2024 6:36 AM FUEL HOUSE ATTENDANT [facility] Absolute NRBCs 0.2 10e3/uL 06/15/2024 6:36 AM FUEL HOUSE ATTENDANT [facility] Blood BLOOD SPECIMEN / Unknown IVAD (Port) / Unknown 06/15/2024 6:09 AM FUEL HOUSE ATTENDANT 06/15/2024 6:18 AM FUEL HOUSE ATTENDANT us Rl Elias MD LAB - BLOOD ORDER SYD Final Result [facility] [address] [facility], Room [address] [place] [id number], [facility] * (ABNORMAL) Basic metabolic panel (06/15/2024 6:09 AM FUEL HOUSE ATTENDANT) Sodium 136 135 - 145 mmol/L 06/15/2024 7:13 AM FUEL HOUSE ATTENDANT [facility] Potassium 4.4 3.4 - 5.3 mmol/L 06/15/2024 7:13 AM FUEL HOUSE ATTENDANT [facility] Chloride 104 98 - 107 mmol/L 06/15/2024 7:13 AM FUEL HOUSE ATTENDANT [facility] Carbon Dioxide (CO2) 21(L) 22 - 29 mmol/L 06/15/2024 7:13 AM FUEL HOUSE ATTENDANT [facility] Anion Gap 11 7 - 15 mmol/L 06/15/2024 7:13 AM FUEL HOUSE ATTENDANT [facility] Urea Nitrogen 10.1 6.0 - 20.0 mg/dL 06/15/2024 7:13 AM FUEL HOUSE ATTENDANT [facility] Creatinine 0.65 0.51 - 0.95 mg/dL 06/15/2024 7:13 AM FUEL HOUSE ATTENDANT [facility] GFR Estimate >90 >60 mL/min/1.7 3m2 06/15/2024 7:13 AM FUEL HOUSE [facility]ANT [facility] Comment:eGFR calculated us2020 CKD-EPI equation. Calcium 8.9 8.8 - 10.4 mg/dL 06/15/2024 7:13 AM FUEL HOUSE ATTENDANT [facility] Glucose 104(H) 70 - 99 mg/dL 06/15/2024 7:13 AM FUEL HOUSE ATTENDANT [facility] Blood BLOOD SPECIMEN / Unknown IVAD (Port) / Unknown 06/15/2024 6:09 AM FUEL HOUSE ATTENDANT 06/15/2024 6:16 AM FUEL HOUSE ATTENDANT Rl Elias MD LAB - BLOOD ORDER SYD Final Result [facility] [address] [facility], [address] [place] [address], [facility] * XR Chest Port 1 View (06/14/2024 8:46 AM FUEL HOUSE ATTENDANT) Anatomical Region Laterality Modality Chest Digital Radiogra phy Impressions 06/14/2024 8:59 AM FUEL HOUSE ATTENDANT Impression: Further increase in ill-defined opacity projecting over the right lower lung concerning for pneumonia. MARIO ALBERTO BLACKWOOD MD Narrative 06/14/2024 8:59 AM FUEL HOUSE ATTENDANT Exam: XR CHEST PORT 1 VIEW, 06/14/2024 [...] (ABNORMAL) CBC with platelets (06/14/2024 7:08 AM FUEL HOUSE ATTENDANT) WBC Count 13.4(H) 4.0 - 11.0 10e3/uL 06/14/2024 7:46 AM FUEL HOUSE ATTENDANT [facility] RBC Count 2.30(L) 3.80 - 5.20 10e6/uL 06/14/2024 7:46 AM FUEL HOUSE ATTENDANT [facility] Hemoglobin 6.9(LL) 11.7 - 15.7 g/dL 06/14/2024 7:46 AM FUEL HOUSE ATTENDANT [facility] Hematocrit 21.6(L) 35.0 - 47.0 % 06/14/2024 7:46 AM FUEL HOUSE ATTENDANT [facility] MCV 94 78 - 100 fL 06/14/2024 7:46 AM FUEL HOUSE ATTENDANT [facility] MCH 30.0 26.5 - 33.0 pg 06/14/2024 7:46 AM FUEL HOUSE ATTENDANT [facility] MCHC 31.9 31.5 - 36.5 g/dL 06/14/2024 7:46 AM FUEL HOUSE ATTENDANT [facility] RDW 19.4(H) 10.0 - 15.0 % 06/14/2024 7:46 AM FUEL HOUSE ATTENDANT [facility] Platelet Count 501(H) 150 - 450 10e3/uL 06/14/2024 7:46 AM FUEL HOUSE ATTENDANT [facility] Blood BLOOD SPECIMEN / Unknown Venipuncture / Unknown 06/14/2024 7:08 AM FUEL HOUSE ATTENDANT 06/14/2024 7:22 AM FUEL HOUSE ATTENDANT Rl Elias MD LAB - BLOOD ORDER SYD Final Result [facility] [place] [address] [facility], [address] [place] [phone] * (ABNORMAL) Basic metabolic panel (06/14/2024 7:08 AM FUEL HOUSE ATTENDANT) Sodium 136 135 - 145 mmol/L 06/14/2024 7:57 AM FUEL HOUSE ATTENDANT [facility] Potassium 4.2 3.4 - 5.3 mmol/L 06/14/2024 7:57 AM FUEL HOUSE ATTENDANT [facility] Chloride 107 98 - 107 mmol/L 06/14/2024 7:57 AM FUEL HOUSE ATTENDANT [facility] Carbon Dioxide (CO2) 20(L) 22 - 29 mmol/L 06/14/2024 7:57 AM FUEL HOUSE ATTENDANT [facility] Anion Gap 9 7 - 15 mmol/L 06/14/2024 7:57 AM FUEL HOUSE ATTENDANT [facility] Urea Nitrogen 6.5 6.0 - 20.0 mg/dL 06/14/2024 7:57 AM FUEL HOUSE ATTENDANT [facility] Creatinine 0.71 0.51 - 0.95 mg/dL 06/14/2024 7:57 AM FUEL HOUSE ATTENDANT [facility] GFR Estimate >90 >60 mL/min/1.7 3m2 06/14/2024 7:57 AM FUEL HOUSE ATTENDANT [facility] Comment:eGFR calculated usin 2020 CKD-EPI equation. Calcium 8.9 8.8 - 10.4 mg/dL 06/14/2024 7:57 AM FUEL HOUSE ATTENDANT [facility] Glucose 92 70 - 99 mg/dL 06/14/2024 7:57 AM FUEL HOUSE ATTENDANT [facility] Blood BLOOD SPECIMEN / Unknown Venipuncture / Unknown 06/14/2024 7:08 AM FUEL HOUSE ATTENDANT 06/14/2024 7:22 AM FUEL HOUSE ATTENDANT Rl Elias MD LAB - BLOOD ORDER SYD Final Result [facility] [place] [address] [facility], [address] [place] [address] * (ABNORMAL) CBC with platelets (06/13/2024 6:32 PM FUEL HOUSE ATTENDANT) [facility] WBC Count 15.3(H) 4.0 - 11.0 10e3/uL 06/13/2024 7:10 PM FUEL HOUSE ATTENDANT [facility] RBC Count 2.21(L) 3.80 - 5.20 10e6/uL 06/13/2024 7:10 PM FUEL HOUSE ATTENDANT [facility] Hemoglobin 6.8(LL) 11.7 - 15.7 g/dL 06/13/2024 7:10 PM FUEL HOUSE ATTENDANT [facility] Hematocrit 20.8(L) 35.0 - 47.0 % 06/13/2024 7:10 PM FUEL HOUSE ATTENDANT [facility] MCV 94 78 - 100 fL 06/13/2024 7:10 PM FUEL HOUSE ATTENDANT [facility] MCH 30.8 26.5 - 33.0 pg 06/13/2024 7:10 PM FUEL HOUSE ATTENDANT [facility] MCHC 32.7 31.5 - 36.5 g/dL 06/13/2024 7:10 PM FUEL HOUSE ATTENDANT [facility] RDW 19.6(H) 10.0 - 15.0 % 06/13/2024 7:10 PM FUEL HOUSE ATTENDANT [facility] Platelet Count 495(H) 150 - 450 10e3/uL 06/13/2024 7:10 PM FUEL HOUSE ATTENDANT [facility] Blood CENTRAL VENOUS CATHETER / Unknown VAD(CVC, PICC) / Unknown 06/13/2024 6:32 PM FUEL HOUSE ATTENDANT 06/13/2024 6:52 PM FUEL HOUSE ATTENDANT Rl Elias MD LAB - BLOOD ORDER SYD Final Result [facility] [place] [address] [facility], [address] [place] [phone] * (ABNORMAL) RBC and Platelet Morphology (06/13/2024 6:00 AM FUEL HOUSE ATTENDANT) RBC Morphology Confirmed RBC Indices 06/13/2024 3:45 PM FUEL HOUSE ATTENDANT [facility] Platelet Assessment Automated Count Confirmed. Platelet morphology is normal. Automated Count Confirmed. Platelet morphology is normal. 06/13/2024 3:45 PM FUEL HOUSE ATTENDANT [facility] Polychromasia Moderate(A) None Seen 06/13/2024 3:45 PM FUEL HOUSE ATTENDANT [facility] Sickle Cells Moderate(A) None Seen 06/13/2024 3:45 PM FUEL HOUSE ATTENDANT [facility] Target Cells Moderate(A) None Seen 06/13/2024 3:45 PM FUEL HOUSE ATTENDANT [facility] Pathologist Review Comments (Blood) Sickle shaped red blood cells are present compatible with patient's history of sickle cell disease. Ziegler Wagram bodies are present compatible with hyposplenic blood picture. There is increased lymphocytes; however, the morphology of lymphocytes is polymorphous. Follow up CBC, diff for resolution of this findings is recommended. Danny Martinez MD on 06/13/2024 at 3:44 PM 06/13/2024 3:45 PM FUEL HOUSE ATTENDANT [facility] Comment:This is an appended report. These results have been appended to a previously final verified report. Blood VENOUS LINE / Unknown IVAD (Port) / Unknown 06/13/2024 6:00 AM FUEL HOUSE ATTENDANT 06/13/2024 6:16 AM FUEL HOUSE ATTENDANT us Laquita Kleley MD LAB - BLOOD ORDERABLES Edited R esult - Final [facility] [address] [facility], [address] [place] [phone], [facility] [place] [address] [facility], [address] [place] [phone], [facility] * (ABNORMAL) CBC with platelets and differential (06/13/2024 6:00 AM FUEL HOUSE ATTENDANT) WBC Count 17.0(H) 4.0 - 11.0 10e3/uL 06/13/2024 9:51 AM FUEL HOUSE ATTENDANT [facility] RBC Count 2.11(L) 3.80 - 5.20 10e6/uL 06/13/2024 9:51 AM FUEL HOUSE ATTENDANT [facility] Hemoglobin 6.4(LL) 11.7 - 15.7 g/dL 06/13/2024 9:51 AM FUEL HOUSE ATTENDANT [facility] Hematocrit 20.3(L) 35.0 - 47.0 % 06/13/2024 9:51 AM FUEL HOUSE ATTENDANT [facility] MCV 96 78 - 100 fL 06/13/2024 9:51 AM FUEL HOUSE ATTENDANT [facility] MCH 30.3 26.5 - 33.0 pg 06/13/2024 9:51 AM FUEL HOUSE ATTENDANT [facility] MCHC 31.5 31.5 - 36.5 g/dL 06/13/2024 9:51 AM FUEL HOUSE ATTENDANT [facility] RDW 19.8(H) 10.0 - 15.0 % 06/13/2024 9:51 AM FUEL HOUSE ATTENDANT [facility] Platelet Count 458(H) 150 - 450 10e3/uL 06/13/2024 9:51 AM FUEL HOUSE ATTENDANT [facility] % Neutrophils 40 % 06/13/2024 9:51 AM FUEL HOUSE ATTENDANT [facility] % Lymphocytes 42 % 06/13/2024 9:51 AM FUEL HOUSE ATTENDANT [facility] % Monocytes 13 % 06/13/2024 9:51 AM FUEL HOUSE ATTENDANT [facility] % Eosinophils 3 % 06/13/2024 9:51 AM FUEL HOUSE ATTENDANT [facility] % Basophils 1 % 06/13/2024 9:51 AM FUEL HOUSE ATTENDANT [facility] % Immature Granulocytes 1 % 06/13/2024 9:51 AM FUEL HOUSE ATTENDANT [facility] NRBCs per 100 WBC 0 <1 /100 025 9:51 AM FUEL HOUSE ATTENDANT [facility] Absolute Neutrophils 6.7 1.6 - 8.3 10e3/uL 06/13/2024 9:51 AM FUEL HOUSE ATTENDANT [facility] Absolute Lymphocytes 7.2(H) 0.8 - 5.3 10e3/uL 06/13/2024 9:51 AM FUEL HOUSE ATTENDANT [facility] Absolute Monocytes 2.2(H) 0.0 - 1.3 10e3/uL 06/13/2024 9:51 AM FUEL HOUSE ATTENDANT [facility] Absolute Eosinophils 0.5 0.0 - 0.7 10e3/uL 06/13/2024 9:51 AM FUEL HOUSE ATTENDANT [facility] Absolute Basophils 0.2 0.0 - 0.2 10e3/uL 06/13/2024 9:51 AM FUEL HOUSE ATTENDANT [facility] Absolute Immature Granulocytes 0.1 <=0.4 10e3/uL 06/13/2024 9:51 AM FUEL HOUSE ATTENDANT [facility] Absolute NRBCs 0.1 10e3/uL 06/13/2024 9:51 AM FUEL HOUSE ATTENDANT [facility] Blood VENOUS LINE / Unknown IVAD (Port) / Unknown 06/13/2024 6:00 AM FUEL HOUSE ATTENDANT 06/13/2024 6:16 AM FUEL HOUSE ATTENDANT Narrative [facility] - 06/13/2024 9:51 AM FUEL HOUSE ATTENDANT Sent for review by Pathologist. See Pathologist comments after review. Tech Comments Patient Diagnosis: Sickle Cell crisis Reason for Sending: absolute lymphocyte > 5.4 us Laquita Kelley MD LAB - BLOOD ORDERABLES Final Re sult [facility] [address] [facility], [address] [facility] [place] [address] [facility], [address] * (ABNORMAL) Basic metabolic panel (06/13/2024 5:59 AM FUEL HOUSE ATTENDANT) Sodium 135 135 - 145 mmol/L 06/13/2024 6:45 AM FUEL HOUSE ATTENDANT [facility] Potassium 4.3 3.4 - 5.3 mmol/L 06/13/2024 6:45 AM FUEL HOUSE ATTENDANT [facility] Chloride 105 98 - 107 mmol/L 06/13/2024 6:45 AM FUEL HOUSE ATTENDANT [facility] Carbon Dioxide (CO2) 21(L) 22 - 29 mmol/L 06/13/2024 6:45 AM FUEL HOUSE ATTENDANT [facility] Anion Gap 9 7 - 15 mmol/L 06/13/2024 6:45 AM FUEL HOUSE ATTENDANT [facility] Urea Nitrogen 4.9(L) 6.0 - 20.0 mg/dL 06/13/2024 6:45 AM FUEL HOUSE ATTENDANT [facility] Creatinine 0.70 0.51 - 0.95 mg/dL 06/13/2024 6:45 AM FUEL HOUSE ATTENDANT [facility] GFR Estimate >90 >60 mL/min/1.7 3m2 06/13/2024 6:45 AM FUEL HOUSE ATTENDANT [facility] Comment:eGFR calculated 2020 CKD-EPI equation. Calcium 8.7(L) 8.8 - 10.4 mg/dL 06/13/2024 6:45 AM FUEL HOUSE ATTENDANT [facility] Glucose 100(H) 70 - 99 mg/dL 06/13/2024 6:45 AM FUEL HOUSE ATTENDANT [facility] Blood VENOUS LINE / Unknown IVAD (Port) / Unknown 06/13/2024 5:59 AM FUEL HOUSE ATTENDANT 06/13/2024 6:16 AM FUEL HOUSE ATTENDANT Laquita Kelley MD LAB - BLOOD ORDERABLES Final Re sult [facility] Core Lab [address] [facility], [address] [place] [phone] * Respiratory Panel PCR (06/12/2024 9:34 PM FUEL HOUSE ATTENDANT) Adenovirus Not Detected Not Detected 06/12/2024 11:53 PM FUEL HOUSE ATTENDANT [facility] Coronavirus Not Detected Not Detected 06/12/2024 11:53 PM FUEL HOUSE ATTENDANT [facility] Comment:This test detects Co ronavirus 229E, HKU1, NL63 and OC43 but does not distinguish between them. It does not detect MERS ( Respiratory Syndrome), SARS (Severe Acute Respiratory Syndrome) or 2019-nCoV (Novel 2019) Coronavirus. Human Metapneumovirus Not Detected Not Detected 06/12/2024 11:53 PM FUEL HOUSE ATTENDANT [facility] Human Rhin/Enterovirus Not Detected Not Detected 06/12/2024 11:53 PM FUEL HOUSE ATTENDANT [facility] Influenza A Not Detected Not Detected 06/12/2024 11:53 PM FUEL HOUSE ATTENDANT [facility] Influenza A, H1 Not Detected Not Detected 06/12/2024 11:53 PM FUEL HOUSE ATTENDANT [facility] Influenza A 2009 H1N1 Not Detected Not Detected 06/12/2024 11:53 PM FUEL HOUSE ATTENDANT [facility] Influenza A, H3 Not Detected Not Detected 06/12/2024 11:53 PM FUEL HOUSE ATTENDANT [facility] Influenza B Not Detected Not Detected 06/12/2024 11:53 PM FUEL HOUSE ATTENDANT [facility] Parainfluenza Virus 1 Not Detected Not Detected 06/12/2024 11:53 PM FUEL HOUSE ATTENDANT [facility] Parainfluenza Virus 2 Not Detected Not Detected 06/12/2024 11:53 PM FUEL HOUSE ATTENDANT [facility] Parainfluenza Virus 3 Not Detected Not Detected 06/12/2024 11:53 PM FUEL HOUSE ATTENDANT [facility] Parainfluenza Virus 4 Not Detected Not Detected 06/12/2024 11:53 PM FUEL HOUSE ATTENDANT [facility] Respiratory Syncytial Virus A Not Detected Not Detected 06/12/2024 11:53 PM FUEL HOUSE ATTENDANT [facility] Respiratory Syncytial Virus B Not Detected Not Detected 06/12/2024 11:53 PM FUEL HOUSE ATTENDANT [facility] Chlamydia Pneumoniae Not Detected Not Detected 06/12/2024 11:53 PM FUEL HOUSE ATTENDANT [facility] Mycoplasma Pneumoniae Not Detected Not Detected 06/12/2024 11:53 PM FUEL HOUSE ATTENDANT [facility] Swab NASOPHARYNGEAL STRUCTURE / Unknown Non-blood Collection / Unknown 06/12/2024 9:34 PM FUEL HOUSE ATTENDANT 06/12/2024 9:47 PM FUEL HOUSE ATTENDANT Narrative [facility] - 06/12/2024 11:53 PM FUEL HOUSE ATTENDANT The ePlex Respiratory Panel is a qualitative nucleic acid, multiplex, in vitro diagnostic test for the simultaneous detection and identification of multiple respiratory viral and bacterial nucleic acids in nasopharyngeal swabs collected in viral transport media from individual exhibiting signs and symptoms of respiratory infection. The assay has received FDA approval for the testing of nasopharyngeal (UPHOLSTERY HANDLER) swabs only. This test is used for clinical purposes and should not be regarded as investigational or for research. This laboratory is certified under the Clinical Laboratory Improvement Amendments of 1988 (CLIA-88) as qualified to perform high complexity clinical laboratory testing. us Abdelrahman Goddard MD LAB - MICRO GENERAL ORDERABLES Final Result [facility] Inf. Diseases Diag. Lab [address] [facility], [address] [place] [address], [facility] * Blood Culture Peripheral Blood (06/12/2024 8:46 PM FUEL HOUSE ATTENDANT) Culture No Growth 06/17/2024 9:31 PM FUEL HOUSE ATTENDANT [facility] Blood BLOOD SPECIMEN / Unknown Venipuncture / Unknown 06/12/2024 8:46 PM FUEL HOUSE ATTENDANT 06/12/2024 8:53 PM FUEL HOUSE ATTENDANT Narrative [facility] - 06/17/2024 9:31 PM FUEL HOUSE ATTENDANT Only an Aerobic Blood Culture Bottle was collected, interpret results with caution. us Abdelrahman Goddard MD LAB - MICRO GENERAL ORDERABLES Final Result [facility] Inf. Diseases Diag. Lab [address] [facility], [address] * Blood Culture Peripheral Blood (06/12/2024 8:46 PM FUEL HOUSE ATTENDANT) Culture No Growth 06/17/2024 9:31 PM FUEL HOUSE ATTENDANT [facility] Blood BLOOD SPECIMEN / Unknown Venipuncture / Unknown 06/12/2024 8:46 PM FUEL HOUSE ATTENDANT 06/12/2024 8:53 PM FUEL HOUSE ATTENDANT us Abdelrahman Goddard MD LAB - MICRO GENERAL ORDERABLES Final Result Performing Organization Address [facility] Co de Phone Number [facility] Inf. Diseases Diag. Lab [address] [facility], [address] * XR Chest 2 Views (06/12/2024 7:38 PM FUEL HOUSE ATTENDANT) Anatomical Region Laterality Modality Chest Computed Radiogr aphy 06/12/2024 7:38 PM FUEL HOUSE ATTENDANT Impressions 06/12/2024 7:42 PM FUEL HOUSE ATTENDANT IMPRESSION: A few faint peripheral reticulonodular opacities in the mid and lower lungs again seen. Lungs otherwise clear. No pleural effusion. No pneumothorax. Borderline cardiac enlargement unchanged. Port anterior right chest wall with right IJ central venous catheter tip low SVC. Port anterior left chest wall with left IJ central venous catheter tip low SVC. Narrative 06/12/2024 7:42 PM FUEL HOUSE ATTENDANT EXAM: XR CHEST 2 VIEWS LOCATION: [facility] DATE: 06/12/2024 INDICATION: CP COMPARISON: 06/03/2024, 05/27/2024 Procedure Note Surendra Hou MD - 06/12/2024 EXAM: XR CHEST 2 VIEWS LOCATION: [facility] DATE: 06/12/2024 INDICATION: CP COMPARISON: 06/03/2024, 05/27/2024 IMPRESSION: A few faint peripheral reticulonodular opacities in the midand lower lungs again seen. Lungs otherwise clear. No pleural effusion. Nopneumothorax. Borderline cardiac enlargement unchanged. Port anteriorright chest wall with right IJ central venous catheter tip low SVC. Port anterior left chest wall withleft IJ central venous catheter tip low SVC. us Abdelrahman Goddard MD IMG DIAGNOSTIC IMAGING ORDERAB LES Final Result * Adult Type and Screen (06/12/2024 7:17 PM FUEL HOUSE ATTENDANT) Pathologist [facility] ABO/RH(D) A POS 06/13/2024 9:17 AM FUEL HOUSE ATTENDANT [facility] Antibody Screen Negative Negative 06/13/2024 9:17 AM FUEL HOUSE ATTENDANT [facility] Comment:Current antibody scr een is negative. Patient has a history of antibody(ies). A delay in compatible red blood cells may occur. SPECIMEN EXPIRATION DATE [id number] 06/13/2024 9:17 AM FUEL HOUSE ATTENDANT [facility] Blood BLOOD SPECIMEN / Unknown Venipuncture / Unknown 06/12/2024 7:17 PM FUEL HOUSE ATTENDANT 06/12/2024 7:32 PM FUEL HOUSE ATTENDANT us Carmen Aviles PA-C LAB - BLOOD BANK TEST ORDER Final Result [facility] B[facility] BANK [address] [place] [address], [facility] * (ABNORMAL) RBC and Platelet Morphology (06/12/2024 7:17 PM FUEL HOUSE ATTENDANT) RBC Morphology Confirmed RBC Indices 06/12/2024 8:57 PM FUEL HOUSE ATTENDANT [facility] Platelet Assessment Automated Count Confirmed. Platelet morphology is normal. Automated Count Confirmed. Platelet morphology is normal. 06/12/2024 8:57 PM FUEL HOUSE ATTENDANT [facility] Polychromasia Slight(A) None Seen 06/12/2024 8:57 PM FUEL HOUSE ATTENDANT [facility] Sickle Cells Moderate(A) None Seen 06/12/2024 8:57 PM FUEL HOUSE ATTENDANT [facility] Target Cells Moderate(A) None Seen 06/12/2024 8:57 PM FUEL HOUSE ATTENDANT [facility] Blood BLOOD SPECIMEN / Unknown Venipuncture / Unknown 06/12/2024 7:17 PM FUEL HOUSE ATTENDANT 06/12/2024 7:32 PM FUEL HOUSE ATTENDANT us Abdelrahman Goddard MD LAB - BLOOD ORDERABLES Final R esult [facility] [place] [address] [facility], [address] [phone] * (ABNORMAL) CBC with platelets and differential (06/12/2024 7:17 PM FUEL HOUSE ATTENDANT) Pathologist [facility] WBC Count 12.5(H) 4.0 - 11.0 10e3/uL 06/12/2024 7:54 PM FUEL HOUSE ATTENDANT [facility] RBC Count 2.44(L) 3.80 - 5.20 10e6/uL 06/12/2024 7:54 PM FUEL HOUSE ATTENDANT [facility] Hemoglobin 7.5(L) 11.7 - 15.7 g/dL 06/12/2024 7:54 PM FUEL HOUSE ATTENDANT [facility] Hematocrit 22.2(L) 35.0 - 47.0 % 06/12/2024 7:54 PM FUEL HOUSE ATTENDANT [facility] MCV 91 78 - 100 fL 06/12/2024 7:54 PM FUEL HOUSE ATTENDANT [facility] MCH 30.7 26.5 - 33.0 pg 06/12/2024 7:54 PM FUEL HOUSE ATTENDANT [facility] MCHC 33.8 31.5 - 36.5 g/dL 06/12/2024 7:54 PM FUEL HOUSE ATTENDANT [facility] RDW 19.5(H) 10.0 - 15.0 % 06/12/2024 7:54 PM FUEL HOUSE ATTENDANT [facility] Platelet Count 542(H) 150 - 450 10e3/uL 06/12/2024 7:54 PM FUEL HOUSE ATTENDANT [facility] % Neutrophils 57 % 06/12/2024 7:54 PM FUEL HOUSE ATTENDANT [facility] % Lymphocytes 24 % 06/12/2024 7:54 PM FUEL HOUSE ATTENDANT [facility] % Monocytes 16 % 06/12/2024 7:54 PM FUEL HOUSE ATTENDANT [facility] % Eosinophils 1 % 06/12/2024 7:54 PM FUEL HOUSE ATTENDANT [facility] % Basophils 1 % 06/12/2024 7:54 PM FUEL HOUSE ATTENDANT [facility] % Immature Granulocytes 0 % 06/12/2024 7:54 PM FUEL HOUSE ATTENDANT [facility] NRBCs per 100 WBC 1(H) <1 /100 025 7:54 PM FUEL HOUSE ATTENDANT [facility] Absolute Neutrophils 7.1 1.6 - 8.3 10e3/uL 06/12/2024 7:54 PM FUEL HOUSE ATTENDANT [facility] Absolute Lymphocytes 3.0 0.8 - 5.3 10e3/uL 06/12/2024 7:54 PM FUEL HOUSE ATTENDANT [facility] Absolute Monocytes 2.0(H) 0.0 - 1.3 10e3/uL 06/12/2024 7:54 PM FUEL HOUSE ATTENDANT [facility] Absolute Eosinophils 0.2 0.0 - 0.7 10e3/uL 06/12/2024 7:54 PM FUEL HOUSE ATTENDANT [facility] Absolute Basophils 0.2 0.0 - 0.2 10e3/uL 06/12/2024 7:54 PM FUEL HOUSE ATTENDANT [facility] Absolute Immature Granulocytes 0.1 <=0.4 10e3/uL 06/12/2024 7:54 PM FUEL HOUSE ATTENDANT [facility] Absolute NRBCs 0.1 10e3/uL 06/12/2024 7:54 PM FUEL HOUSE ATTENDANT [facility] Blood BLOOD SPECIMEN / Unknown Venipuncture / Unknown 06/12/2024 7:17 PM FUEL HOUSE ATTENDANT 06/12/2024 7:32 PM FUEL HOUSE ATTENDANT us Abdelrahman Goddard MD LAB - BLOOD ORDERABLES Final R esult [facility] [address] [facility], [address] [place] [address], [facility] * (ABNORMAL) Blood gas venous (06/12/2024 7:17 PM FUEL HOUSE ATTENDANT) pH Venous 7.38 7.32 - 7.43 06/12/2024 7:40 PM FUEL HOUSE ATTENDANT [facility] pCO2 Venous 42 40 - 50 mm Hg 06/12/2024 7:40 PM FUEL HOUSE ATTENDANT [facility] pO2 Venous 35 25 - 47 mm Hg 06/12/2024 7:40 PM FUEL HOUSE ATTENDANT [facility] Bicarbonate Venous 24 21 - 28 mmol/L 06/12/2024 7:40 PM FUEL HOUSE ATTENDANT [facility] Base Excess/Deficit Venous -0.9 -3.0 - 3.0 mmol/L 06/12/2024 7:40 PM FUEL HOUSE ATTENDANT [facility] FIO2 21 JARET 06/12/2024 7:40 PM FUEL HOUSE ATTENDANT [facility] Oxyhemoglobin Venous 61(L) 70 - 75 % 06/12/2024 7:40 PM FUEL HOUSE ATTENDANT [facility] O2 Sat, Venous 63.9(L) 70.0 - 75.0 % 06/12/2024 7:40 PM FUEL HOUSE ATTENDANT [facility] Blood, venous VENOUS LINE / Unknown Venipuncture / Unknown 06/12/2024 7:17 PM FUEL HOUSE ATTENDANT 06/12/2024 7:30 PM FUEL HOUSE ATTENDANT Narrative [facility] - 06/12/2024 7:40 PM FUEL HOUSE ATTENDANT In healthy individuals, oxyhemoglobin (O2Hb) and oxygen saturation (SO2) are approximately equal. In the presence of dyshemoglobins, oxyhemoglobin can be considerably lower than oxygen saturation. us Abdelrahman Goddard MD LAB - BLOOD ORDERABLES Final R esult [facility] [address] [facility], [address] [place] [phone] * Troponin T, High Sensitivity (06/12/2024 7:17 PM [employer]EL HOUSE ATTENDANT) Troponin T, High Sensitivity <6 <=14 ng/L 06/12/2024 8:03 PM [employer]EL HOUSE ATTENDANT [facility] Comment: Either a High Sensitivity [...] Unknown Venipuncture / Unknown 06/12/2024 7:17 PM F[employer]EL HOUSE ATTENDANT 06/12/2024 7:32 PM [employer] HOUSE ATTENDANT Abdelrahman Goddard MD LAB - BLOOD ORDERABLES Final R esult [facility] [place] [facility] [address] [facility], [address] [place] [address] * (ABNORMAL) Basic metabolic panel (06/12/2024 7:17 PM FUEL HOUSE ATTENDANT) Sodium 139 135 - 145 mmol/L 06/12/2024 8:03 PM F[employer]EL HOUSE ATTENDANT [facility] Potassium 4.3 3.4 - 5.3 mmol/L 06/12/2024 8:03 PM F[employer]EL HOUSE ATTENDANT [facility] Chloride 109(H) 98 - 107 mmol/L 06/12/2024 8:03 PM F[employer]EL HOUSE ATTENDANT [facility] Carbon Dioxide (CO2) 21(L) 22 - 29 mmol/L 06/12/2024 8:03 PM F[employer] HOUSE ATTENDANT [facility] Anion Gap 9 7 - 15 mmol/L 06/12/2024 8:03 PM F[employer] HOUSE ATTENDANT [facility] Urea Nitrogen 5.9(L) 6.0 - 20.0 mg/dL 06/12/2024 8:03 PM [employer] HOUSE ATTENDANT [facility] Creatinine 0.61 0.51 - 0.95 mg/dL 06/12/2024 8:03 PM F[employer] HOUSE ATTENDANT [facility] GFR Estimate >90 >60 mL/min/1.7 3m2 06/12/2024 8:03 PM F[employer]EL HOUSE ATTENDANT [facility] Comment:eGFR calculated usin 2020 CKD-EPI equation. Calcium 9.4 8.8 - 10.4 mg/dL 06/12/2024 8:03 PM F[employer] HOUSE ATTENDANT [facility] Glucose 97 70 - 99 mg/dL 06/12/2024 8:03 PM F[employer]EL HOUSE ATTENDANT [facility] Blood BLOOD SPECIMEN / Unknown Venipuncture / Unknown 06/12/2024 7:17 PM F[employer]EL HOUSE ATTENDANT 06/12/2024 7:32 PM F[employer]EL HOUSE ATTENDANT us Abdelrahman Goddard MD LAB - BLOOD ORDERABLES Final R esult LABORATORY [facility] [address] [facility], [address] * (ABNORMAL) INR (06/12/2024 7:17 PM FUEL HOUSE ATTENDANT) INR 1.37(H) 0.85 - 1.15 06/12/2024 7:54 PM F[employer]EL HOUSE ATTENDANT LABORATORY Blood BLOOD SPECIMEN / Unknown Venipuncture / Unknown 06/12/2024 7:17 PM FUEL HOUSE ATTENDANT 06/12/2024 7:32 PM FUEL HOUSE ATTENDANT Abdelrahman Goddard MD LAB - BLOOD ORDERABLES Final R esult LABORATORY [facility] Core Lab [address] [facility], Room [address] * EKG 12-lead, tracing only (06/12/2024 6:37 PM FUEL HOUSE ATTENDANT) Systolic Blood Pressure mmHg RADIOLOGY RESULTS Diastolic Blood Pressure mmHg RADIOLOGY RESULTS Ventricular Rate 94 BPM RAD IOLOGY RESULTS Atrial Rate 94 BPM RADIOLOG Y RESULTS ME Interval 146 ms RADIOLOG Y RESULTS QRS Duration 84 ms RADIOLO GY RESULTS QT 346 ms RADIOLOGY RESULTS QTc 432 ms RADIOLOGY RESULTS P [place] 31 degrees RADIOLOGY RESULTS R AXIS 85 degrees RADIOLOGY RESULTS T [place] 36 degrees RADIOLOGY RESULTS Interpretation ECG Sinus rhythm Normal ECG Unconfirmed report - interpretation of this ECG is computer generated - see medical record for final interpretation Confirmed by - EMERGENCY ROOM, PHYSICIAN ([id number]), editorial intern CLAUDIO ASTORGA ([id number]) on 06/13/2024 7:17:59 AM RADIOLOGY RESULTS 06/12/2024 6:37 PM FUEL HOUSE ATTENDANT 06/13/2024 7:17 AM FUEL HOUSE ATTENDANT us Alex Morton MD ECG ORDERABLES Edited Resul [...] within 2 weeks. $Given 06/15/2024 8:05 AM FUEL HOUSE ATTENDANT 2 puffs $Given 06/14/2024 7:59 PM FUEL HOUSE ATTENDANT 2 puffs $Given 06/14/2024 4:39 PM FUEL HOUSE ATTENDANT 2 puffs albuterol (PROVENTIL HFA/VENTOLIN HFA) inhaler [...] Indications: SepsisIndications:Sepsis $New Bag 06/12/2024 9:31 PM FUEL HOUSE ATTENDANT 500 mg 250 mL /hr azithromycin (ZITHROMAX) 500 mg in sodium chloride 0.9 % 250 mL intermittent infusion Routine, 500 mg, Intravenous, EVERY 24 HOURS, First dose on Wed06/13/24 at 2100, Indications: Acute chest syndromeIndications:Acute chest syndrome $New Bag 06/13/2024 10:04 PM FUEL HOUSE ATTENDANT 500 mg azithromycin (ZITHROMAX) tablet 500 mg Routine, 500 mg, Oral, DAILY, First dose on Wed06/14/24 at 1200, Indications: Community Acquired PneumoniaIndications:Community Acquired Pneumonia $Given 06/15/2024 8:05 AM FUEL HOUSE ATTENDANT 500 mg $Given 06/14/2024 12:38 PM FUEL HOUSE ATTENDANT 500 mg cefTRIAXone (ROCEPHIN) 1 g vial to attach to NS 100 mL bag for ADULTS or NS 50 mL bag for PEDS STAT, 1 g, Intravenous, ONCE, On Wed06/12/24 at 2005, For 1 dose, Lactated Ringer's solution is not compatible with ceftriaxone for injection, Indications: SepsisIndications:Sepsis $New Bag 06/12/2024 8:39 PM FUEL HOUSE ATTENDANT 1 g cefTRIAXone (ROCEPHIN) 2 g vial to attach to NS 100 ml bag for ADULTS or NS 50 ml bag for PEDS Routine, 2 g, Intravenous, EVERY 24 HOURS, First dose on Wed06/13/24 at 2000, Lactated Ringer's solution is not compatible with ceftriaxone for injection, Indications: Acute chest syndromeIndications:Acute chest syndrome $New Bag 06/14/2024 8:00 PM FUEL HOUSE ATTENDANT 2 g $New Bag 06/13/2024 8:16 PM FUEL HOUSE ATTENDANT 2 g diclofenac (VOLTAREN) 1 % topical gel 2 g 2 g, Topical, 4 TIMES DAILY PRN, inflammatory pain, Starting on Wed06/14/24 at 0912, Apply to area of pain. Use supplied dosing card to measure dose. $Given 06/15/2024 8:10 AM FUEL HOUSE ATTENDANT 2 g $Given 06/14/2024 12:38 PM FUEL HOUSE ATTENDANT 2 g diphenhydrAMINE (BENADRYL) capsule 25 mg 25 mg, Oral, EVERY 6 HOURS PRN, itching, Starting on Wed06/12/24 at 2139 $Given 06/14/2024 12:38 PM FUEL HOUSE ATTENDANT 25 mg $Given 06/13/2024 10:54 PM FUEL HOUSE ATTENDANT 25 mg $Given 06/13/2024 12:12 PM FUEL HOUSE ATTENDANT 25 mg diphenhydrAMINE (BENADRYL) injection 25 mg 25 mg, Intravenous, EVERY 6 HOURS PRN, itching, Starting on Wed06/12/24 at 2139 $Given 06/13/2024 5:39 AM FUEL HOUSE ATTENDANT 25 mg $Given 06/12/2024 10:41 PM FUEL HOUSE ATTENDANT 25 mg enoxaparin ANTICOAGULANT (LOVENOX) injection 40 mg 40 mg, Subcutaneous, EVERY 24 HOURS, First dose on Wed06/13/24 at 0800, Contact provider if platelet count drops by 50% or more after enoxaparin initiation OR if platelet count falls below 50 x 10e3/uL $Given 06/15/2024 7:59 AM FUEL HOUSE ATTENDANT 40 mg $Given 06/14/2024 8:29 AM FUEL HOUSE ATTENDANT 40 mg $Given 06/13/2024 7:49 AM FUEL HOUSE ATTENDANT 40 mg FLUoxetine (PROzac) capsule 10 mg 10 mg, Oral, DAILY, First dose on Wed06/13/24 at 0800 $Given 06/14/2024 2:37 PM FUEL HOUSE ATTENDANT 10 mg $Given 06/13/2024 7:50 AM FUEL HOUSE ATTENDANT 10 mg folic acid (FOLVITE) tablet 1 mg 1 mg, Oral, DAILY, First dose on Wed06/13/24 at 0800 $Given 06/15/2024 8:05 AM FUEL HOUSE ATTENDANT 1 mg $Given 06/14/2024 8:29 AM FUEL HOUSE ATTENDANT 1 mg $Given 06/13/2024 7:49 AM FUEL HOUSE ATTENDANT 1 mg heparin lock flush 10 unit/mL [...] For 1 dose $Given 06/12/2024 7:24 PM FUEL HOUSE ATTENDANT 2 mg hydromorphone (DILAUDID) injection 2 mg 2 mg, Intravenous, ONCE, On Wed06/12/24 at 2010, For 1 dose $Given 06/12/2024 8:14 PM FUEL HOUSE ATTENDANT 2 mg hydromorphone (DILAUDID) injection 2 mg 2 mg, Intravenous, EVERY 3 HOURS PRN, moderate pain, IF patient cannot take oral opioid OR IF pain not managed with non-pharmacological, non-opioid, or oral opioid interventions if ordered, Starting on Wed06/12/24 at 2237, May use concomitant with non-opioid analgesics. $Given 06/12/2024 11:31 PM FUEL HOUSE ATTENDANT 2 mg hydromorphone (DILAUDID) injection 2 mg 2 mg, Intravenous, ONCE, On Wed06/12/24 at 2135, For 1 dose $Given 06/12/2024 9:46 PM FUEL HOUSE ATTENDANT 2 mg hydromorphone (DILAUDID) injection 2 mg 2 mg, Intravenous, EVERY 2 HOURS PRN, moderate pain, IF patient cannot take oral opioid OR IF pain not managed with non-pharmacological, non-opioid, or oral opioid interventions if ordered, Starting on Wed06/13/24 at 0132, May use concomitant with non-opioid analgesics. $Given 06/14/2024 12:38 PM FUEL HOUSE ATTENDANT 2 mg $Given 06/14/2024 10:31 AM FUEL HOUSE ATTENDANT 2 mg $Given 06/14/2024 8:29 AM FUEL HOUSE ATTENDANT 2 mg hydromorphone (DILAUDID) injection 2 mg 2 mg, Intravenous, EVERY 2 HOURS, First dose (after last modification) on Wed06/14/24 at 1415, May use concomitant with non-opioid analgesics. $Given 06/15/2024 7:58 AM FUEL HOUSE ATTENDANT 2 mg $Given 06/15/2024 6:01 AM FUEL HOUSE ATTENDANT 2 mg $Given 06/15/2024 4:11 AM FUEL HOUSE ATTENDANT 2 mg hydroxyurea (HYDREA) capsule 1,000 mg 1,000 mg, Oral, 2 TIMES DAILY, First dose on Wed06/12/24 at 2330, Indications: sickle cell anemia, Do not crush May require hepatic and/or renal dose or frequency adjustments. See reference link for guidelines.Indications:sickle cell anemia $Given 06/15/2024 8:06 AM FUEL HOUSE ATTENDANT 1,000 mg $Given 06/14/2024 8:00 PM FUEL HOUSE ATTENDANT 1,000 mg $Given 06/14/2024 8:30 AM FUEL HOUSE ATTENDANT 1,000 mg lactated ringers infusion at 75 mL/hr, Intravenous, CONTINUOUS, Starting on Wed06/12/24 at 2240, Until Wed06/13/24 at 0839 Rate/Dose Verify 06/13/2024 7:02 AM FUEL HOUSE ATTENDANT 75 mL/hr Rate/Dose Verify 06/13/2024 4:52 AM FUEL HOUSE ATTENDANT 75 mL/h r Rate/Dose Verify 06/13/2024 1:35 AM FUEL HOUSE ATTENDANT 75 mL/h r Lidocaine (LIDOCARE) 4 % [...] Wed06/12/24 at 2138 $Given 06/13/2024 1:28 AM FUEL HOUSE ATTENDANT 5 mg menthol (ICY HOT) 5 % [...] Liquid not required. $Given 06/14/2024 9:20 AM FUEL HOUSE ATTENDANT 4 mg ondansetron (ZOFRAN) injection 4 mg 4 mg, Intravenous, ONCE, Administer over 2-5 Minutes, On Wed06/12/24 at 1850, For 1 dose $Given 06/12/2024 7:24 PM FUEL HOUSE ATTENDANT 4 mg ondansetron (ZOFRAN) injection 4 mg 4 mg, Intravenous, EVERY 6 HOURS PRN, nausea/vomiting - 1st line, Administer over 2-5 Minutes, Starting on Wed06/12/24 at 2237, Give IF patient unable to tolerate oral medication. This is Step 1 of nausea and vomiting management. If nausea not resolved in 15 minutes, go to Step 2 prochlorperazine (COMPAZINE). $Given 06/15/2024 4:19 AM FUEL HOUSE ATTENDANT 4 mg senna-docusate (SENOKOT-S/PERICOLACE) 8.6-50 MG per [...] IV dormant line $Given 06/15/2024 6:32 AM FUEL HOUSE ATTENDANT 3 mLs $Given 06/13/2024 8:37 PM FUEL HOUSE ATTENDANT 3 mLs $Given 06/13/2024 2:12 PM FUEL HOUSE ATTENDANT 3 mLs sodium chloride (PF) 0.9% PF flush 3 mL 3 mL, Intracatheter, EVERY 1 MIN PRN, line flush, other, to ensure patency or to lock dormant line, Starting on Wed06/12/24 at 2237 $Given 06/14/2024 2:4 2 PM FUEL HOUSE ATTENDANT 3 mLs $Given 06/14/2024 8:30 AM FUEL HOUSE ATTENDANT 3 mLs $Given 06/14/2024 1:32 AM FUEL HOUSE ATTENDANT 3 mLs sodium chloride 0.9% BOLUS 1,000 mL Intravenous, 1,000 mL, ONCE, at 1,000 mL/hr, Administer over 1 Hours, On Wed06/12/24 at 1850, For 1 dose $New Bag 06/12/2024 7:22 PM FUEL HOUSE ATTENDANT 1,000 mLs 1000 mL/hr documented in this encounter Active and Recently Administered Medications Times are shown in FUEL HOUSE ATTENDANT. Scheduled Medication Order 06/13/2024 06/14/2024 06/15/2024 albuterol [...] Ang Charles RN)1639 ($Given - Provider: Clay Avina RN)1959 ($Given - Provider: Kathy Levy RN) 0805 [...] ($New Bag - Provider: Kathy Levy, SOFIA) 014 (Stopped - Provider: Kathy Levy RN) enoxaparin ANTICOAGULANT (LOVENOX) injection 40 mg 40 mg, Subcutaneous, EVERY 24 HOURS, First dose on Wed06/13/24 at 0800, Contact provider if platelet count drops by 50% or more after enoxaparin initiation OR if platelet count falls below 50 x 10e3/uL 0749 ($Given - Provider: Xu Ravi RN) 0829 ($Given - Provider: Clay Avina, SOFIA) 0759 ($Given - Provider: Clay Avina RN) FLUoxetine (PROzac) capsule 10 mg 10 mg, Oral, DAILY, First dose on Wed06/13/24 at 0800 0750 ($Given - Provider: Xu Ravi RN) 1437 ($Given - Provider: Clay Avina, SOFIA) 0800 (Canceled Entry - Provider: Orders Generic Provider - Comment: Automatically canceled at discontinue of medication order) folic acid (FOLVITE) tablet 1 mg 1 mg, Oral, DAILY, First dose on Wed06/13/24 at 0800 0749 ($Given - Provider: Xu Ravi RN) 0829 ($Given - Provider: Clay Avina, SOFIA) 0805 ($Given - Provider: Clay Avina, SOFIA) heparin lock flush 10 unit/mL injection 5-10 [...] Shauna Cuadra RN)0750 ($Given - Provider: Xu Ravi, RN)2204 ($Given - Provider: Geovanna Dean, RN) 0830 ($Given - Provider: Clay Avina, RN)2000 ($Given - Provider: Kathy Levy RN) 0806 ($Given - Provider: Clay Avina, RN) Lidocaine (LIDOCARE) 4 % Patch 1 [...] Kiki Caal, SOFIA)2037 ($Given - Provider: Geovanna Dean RN) 0640 (Not Given - Provider: Geovanna Dean [...] 0839 0135 (Rate/Dose Verify - Provider: Shauna Cuadra RN)0452 (Rate/Dose Verify - Provider: Shauna Cuadra RN)0702 (Rate/Dose Verify - Provider: Shauna Cuadra RN)1215 (Stopped - Provider: Kiki Caal RN) PRN Medication Order 06/13/2024 06/14/2024 06/15/2024 albuterol [...] Charles RN) 0810 ($Given - Provider: Clay Avina RN) diphenhydrAMINE (BENADRYL) capsule 25 mg(Linked Group 1) 25 mg, Oral, EVERY 6 HOURS PRN, itching, Starting on Wed06/12/24 at 2139 0539 (See Alternative - Provider: Shauna Cuadra RN)1212 ($Given - Provider: Yolanda Huang RN)2254 ($Given - Provider: Geovanna Dean, SOFIA) 1238 ($Given - Provider: Ang Charles RN) [...] Shauna Cuadra RN)0749 ($Given - Provider: Xu Ravi, SOFIA)0958 ($Given - Provider: Xu Ravi, SOFIA)1212 ($Given - Provider: Yolanda Huang RN)1411 ($Given - Provider: Kiki Caal RN)1621 ($Given - Provider: Kiki Caal RN)1833 ($Given - Provider: Kiki Caal RN)2033 ($Given - Provider: Geovanna Dean RN)2254 ($Given - Provider: Geovanna Dean RN) 0132 ($Given - Provider: Geovanna Dean RN)0404 ($Given - Provider: Geovanna Dean RN)0625 ($Given - Provider: Geovanna Dean RN)0829 ($Given - Provider: Clay Avina, RN)1031 ($Given - Provider: Clay Avina RN)1238 ($Given - Provider: Ang Charles RN) [...] 0920 ($Given - Provider: Clay Avina RN) 7483 (See Alternative - Provider: Kathy Levy RN) ondansetron (ZOFRAN) injection 4 mg(Linked Group 2) [...] (See Alternative - Provider: Clay Avina RN) 2976 ($Given - Provider: Kathy Levy RN) senna-docusate [...] 2 TIMES DAILY PRN, constipation, Starting on 06/12/24 at 2237, IF more than 1 constipation PRN medication is ordered, administer step-barriga as indicated, moving to the next step ONLY if prior step ineffective. Step 1: senna-docusate (SENOKOT-S; PERICOLACE) OR bisacodyl (DULCOLAX) EC tablet Step 2: polyethylene glycol (MIRALAX/GLYCOLAX) Step 3: bisacodyl (DULCOLAX) suppository Step 4: enema Hold for loose stools. documented in this encounter Care Teams Stenotypist Relationship Specialty Start Date End Date No Ref-Primary, Physician PCP - General 03/15/24 06/17/24 Mor Ramsey Medical Student 04/03/24 Case Samuel MD [address] [place] [address] [address] [place] [address] Assigned Pediatric Specialist Provider 05/18/24 Juhi Benson, RN Specialty Screen And Cyclone Repairer Hematology & Oncology 05/29/24 documented as of this encounter
--- OUTSIDE RECORDS SUMMARY | 2024-06-30 22:33 | XMS_ITS | Encounter Summary ---
Author Organization [facility] Address [address] [place] [address]. 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 [address] [place] [address] Case Samuel MD [address] [place] [address] [address], [address] [employer], [place] [id number] documented as of this encounter Goals Goal Patient Goal Type Associated Problems Recent Progress Patient-Stated? Author Pain Management General On track( 025 12:40 PM SENIOR JAVA J2EE DEVELOPER) Yes Juhi Benson RN Note: Goal [...] on filedocumented in this encounter Care Teams It Sales Consultant Relationship Specialty Start Date End Date Veronica Joseph MD [address] [place] [address] PCP - General Family Medicine 06/18/24 Mor Ramsey Medical Student 04/03/24 Case Samuel MD [address] [place] [address] [address], [address] [place] [address] Assigned Pediatric Specialist Provider 05/18/24 Juhi Benson, RN Specialty Electrical Line Worker Hematology & Oncology 05/29/24 documented as of this encounter
--- OUTSIDE RECORDS SUMMARY | 2024-06-30 22:33 | XMS_ITS | Encounter Summary ---
Author Organization [facility] Address [address] [place] [address] Care Team Providers Care Social Science Research Assistant Name Role Phone RoxyElvirac Unavailable Unavailable Case Samuel MD Unavailable [phone] Juhi Benson RN Unavailable Unavailable Veronica Joseph MD Primary Care Provider [phone] Reason for Visit * Reason Comments Sickle Cell Pain Crisis Encounter Details Date Type Department Care Team (Late st Contact Info) Description 06/25/2024 9:50 PM DEPUTY SHERIFF BUILDING GUARD - 06/26/2024 1:11 AM DEPUTY SHERIFF BUILDING GUARD Emergency [facility] Emergency Department [address] [place] [phone] Polly Naylor MD [address] [place], [place] [id number] Marissa Matos MD [address] [place] [address] [id number] Sickle cell disease with crisis (H); Chest pain, unspecified type Discharge Disposition: Home or Self Care Social [...] in an overnight prison, or couch-surfing.) Yes 06/20/2024 Are you worried [...] on file Legal Sex Female 8:25 AM DEPUTY SHERIFF BUILDING GUARD Gender Identity Not on file Sexual Orientation Not on file documented as of this encounter Last Filed Vital Signs Vital Sign Reading Time Taken Comments Blood Pressure 117/81 06/25/2024 9:46 PM DEPUTY SHERIFF BUILDING GUARD Pulse 104 06/25/2024 9:46 PM DEPUTY SHERIFF BUILDING GUARD Temperature 36.8 C (98.2 F) 06/25/2024 9:46 PM DEPUTY SHERIFF BUILDING GUARD Respiratory Rate 16 06/25/2024 9:46 PM DEPUTY SHERIFF BUILDING GUARD Oxygen Saturation 98% 06/25/2024 9:46 PM DEPUTY SHERIFF BUILDING GUARD Inhaled Oxygen Concentration - - Weight 51 kg (112 lb 6.4 oz) 06/25/2024 9:46 PM DEPUTY SHERIFF BUILDING GUARD Height - - Body Mass Index 21.24 06/24/2024 9:26 AM DEPUTY SHERIFF BUILDING GUARD documented in this encounter Discharge Instructions * Discharge Instructions* Polly Naylor MD - 06/26/2024 12:04 AM DEPUTY SHERIFF BUILDING GUARD You are seen in the emergency department due to chest pain, body pain consistent with sickle cell crisis. You had lab work that shows a very slight elevation of your white blood cell count, and some changes in your lung without definitive evidence consistent with pneumonia. We would recommend that you monitor for changes in your symptoms including fever, chills, productive cough, in which case hemay need to be evaluated again and start antibiotics at that time. Otherwise, please follow-up with your advertising intern as previously planned tomorrow. TY SHERIFF BUILDING GUARD documented in this encounter Medications at Time [...] 1 05/29/2024 folic acid (FOLVITE) 1 MG tabletIndications: [...] 05/01/2024 naloxone (NARCAN) 4 MG/0.1ML nasal spray [place] 1 spray (4 mg) into one nostril alternating nostrils as needed for opioid reversal (for opiate overdose if not breathing and unconscious. have your family member watch video on how to use/read information sheet). 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 40 tablet 06/15/2024 documented as of this encounter ED Notes * Polly Naylor MD - 06/25/2024 9:52 PM CST Images from the original note were not included. ED Provider Note [facility] EMERGENCY DEPARTMENT ([facility]) 06/25/24 ED PROVIDER NOTE History Chief Complaint Patient presents with Sickle Cell Pain Crisis HPI Gianna Hernández is a 29 year old female with a history of sickle cell disease, acute chest syndrome (2023), prior PE, stroke, and endocarditis who presents to the ED for a sickle cell pain crisis. Patient reports that she has been having pain regarding her sickle cell crisis for the last 2 or 3 days. This is the third ER evaluation in the last couple of days, and she is hoping to get evaluatedby her advertising intern. She is missed her hematology appointments for last couple of times because shewas admitted, and has an appointment to see them tomorrow. She continues to have pain throughout her lower back radiating into her thighs on both sides. Also notes that she is a little bit of chest pain but feels like it is not at all consistent with when she has had acute chest in the past. No fevers or chills, no shortness of breath, abdominal pain or nausea or vomiting. No new weakness,tingling, numbness Past Medical History Past Medical History: Diagnosis [...] all other systems negative. Physical Exam BP: 117/81 Pulse: 104 Temp: 98.2 ??F (36.8 ??C) Resp: 16 Weight: 51 kg (112 lb 6.4 oz) SpO2: 98 % Physical Exam GEN: Well appearing, non toxic, cooperative HEENT: normocephalic and atraumatic, PERRLA, EOMI CV: well-perfused, normal skin color for ethnicity, sinus tachycardia PULM: breathing comfortably, in no respiratory distress, clear to auscultation upper lower lung lindsay ABD: nondistended, soft, nontender, negative [place], negative [place] point tenderness EXT: Full range of motion. No edema. Back: No midline cervical, thoracic or lumbar tenderness, bilateral paraspinal tenderness in the mid thoracic and lumbar back NEURO: awake, conversant, grossly normal bilateral upper and lower extremity strength & ROM SKIN: No rashes, ecchymosis, or lacerations PSYCH: Calm and cooperative, interactive ED Course, Procedures, & Data Procedures EKG Interpretation: Interpreted by Polly Naylor MD Time reviewed: 2218 Symptoms at time of EKG: chest pain Rhythm: normal sinus Rate: normal [place]: normal Ectopy: none Conduction: normal ST Segments/ T Waves: No ST-T wave changes Q Waves: none Comparison to prior: Unchanged Clinical Impression: normal EKG Results for orders placed or performed during the hospital encounter of 06/25/24 XR Chest 2 Views Status: None Narrative EXAM: XR CHEST 2 VIEWS LOCATION: [facility] DATE: 06/25/2024 INDICATION: Chest pain, SSC. COMPARISON: [...] Negative Ketones Urine Negative Negative mg/dL Specific [place] Urine 1.009 1.003 - 1.035 Blood Urine [...] Rate 87 BPM Atrial Rate 87 BPM WA Interval 162 ms QRS Duration 86 ms QT 362 ms QTc 435 ms P [place] 54 degrees R AXIS 84 degrees T [place] 70 degrees Interpretation ECG Sinus rhythm Normal ECG Unconfirmed report - interpretation of this ECG is computer generated - see medical record for final interpretation Confirmed by - EMERGENCY ROOM, PHYSICIAN ([id number]), medical editor Nivia Willson ([id number]) on 06/25/2024 10:56:42 PM CBC with platelets differential Status: Abnormal Narrative The following orders were created for panel order CBC with platelets differential. Procedure Abnormality Status --------- ------ CBC with platelets and d...[[id number]] Abnormal Final result Please view results for these tests on the individual orders. Medications hydromorphone (DILAUDID) injection 2 mg (2 mg Intravenous $Given 06/25/24 189) sodium chloride 0.9% BOLUS 1,000 mL (1,000 mLs Intravenous $New Bag 06/25/242217) ondansetron (ZOFRAN) injection 8 mg (8 mg Intravenous $Given 06/25/242237) diphenhydrAMINE (BENADRYL) capsule 25 mg (25 mg Oral $Given 06/25/242238) Labs Ordered and Resulted from Time of ED Arrival to Time of ED Departure BASIC METABOLIC PANEL - Abnormal Result Value Sodium 137 Potassium 3.7 Chloride 107 Carbon Dioxide (CO2) 22 Anion Gap 8 Urea Nitrogen 6.7 Creatinine 0.69 GFR Estimate >90 Calcium 8.7 (*) Glucose 87 ROUTINE UA WITH MICROSCOPIC REFLEX TO CULTURE - Abnormal Color Urine Light Yellow Appearance Urine Clear Glucose Urine Negative Bilirubin Urine Negative Ketones Urine Negative Specific [place] Urine 1.009 Blood Urine Negative pH Urine 7.5 (*) Protein Albumin Urine Negative Urobilinogen Urine Normal Nitrite Urine Negative Leukocyte Esterase Urine Negative RBC Urine 0 WBC Urine 0 Squamous Epithelials Urine 2 (*) CBC WITH PLATELETS AND DIFFERENTIAL - Abnormal WBC Count 12.5 (*) RBC Count 2.32 (*) Hemoglobin 7.8 (*) Hematocrit 22.7 (*) MCV 98 MCH 33.6 (*) MCHC 34.4 RDW 19.2 (*) Platelet Count 451 (*) % Neutrophils 48 % Lymphocytes 39 % Monocytes 10 % Eosinophils 2 % Basophils 1 % Immature Granulocytes 1 NRBCs per 100 WBC 1 (*) Absolute Neutrophils 6.0 Absolute Lymphocytes 4.8 Absolute Monocytes 1.2 Absolute Eosinophils 0.2 Absolute Basophils 0.1 Absolute Immature Granulocytes 0.1 Absolute NRBCs 0.2 TROPONIN T, HIGH SENSITIVITY - Normal Troponin T, High Sensitivity <6 XR Chest 2 Views Final Result IMPRESSION: Bilateral portacatheter with tips in the SVC. Mild low lung volumes. Heart size and pulmonary vascularity stable at the upper limits of normal. Mild patchy right middle lobe infiltrate oratelectasis. Critical care was not performed. Medical Decision [...] (a parenteral controlled substance). Assessment & Plan 29-year-old female with a history of sickle cell crisis, previous acute chest, PE, CVA without residual deficits presenting to the emergency department for the third day in a row due to ongoing sickle cell crisis pain endorsing pain throughout her lower back, into her thighs, and a little bit into her chest noted to be tachycardic, but otherwise hemodynamically stable. Primary concern for sickle cell anemia. Will obtain urinalysis to evaluate for evidence of hematuria or infection to evaluate for nephrolithiasis or pyelonephritis although low suspicion. Pending some basic lab work although reassuring labs from yesterday, will obtain troponin with chest pain, and x-ray to evaluate for acute chest. Discussed with her that she has been having ongoing pain flare for a number of days and has been inthe ER for multiple times. It would be reasonable to admit her to the hospital if her pain flares continue, however she strongly would desire being discharged after her evaluation and treatment in order for her to make her hematology appointment tomorrow. Will try to see if this is possible at the end of her evaluation as she has been feeling better after medications here ER/Acute Care/Infusion Clinic: Hydromorphone 2 mg IVP/SC Q1H X 3 doses LR 500 ml/hr x 2 hours (1 L total) Other: Zofran 8 mg IV 12:04 AM white blood cell count elevated at 12.5, and there is a mild right middle lobe infiltrate versus atelectasis. She is not having any dyspnea, no productive cough, and her chest is mild but primarily on the left side. Do not believe that this represents pneumonia at this time, but we will plan for her to follow-up in be reevaluated if symptoms change I have reviewed the nursing notes. I have reviewed the findings, diagnosis, plan and need for follow up with the patient. New Prescriptions No medications on file Final diagnoses: Sickle cell disease with crisis (H) Chest pain, unspecified type Polly Naylor MD [facility] EMERGENCY DEPARTMENT 06/25/2024 Polly Naylor MD 06/26/24 0006 TY SHERIFF BUILDING GUARD * Juhi Crump RN - 06/25/2024 9:47 PM CST Pt ambulatory from home with sickle cell pain crisis. States pain located in legs and back. Complains of mild chest pain. Triage Assessment (Adult) Row Name 06/25/24 2147 Triage Assessment Airway WDL WDL Respiratory WDL Respiratory WDL WDL Cardiac WDL Cardiac WDL WDL Peripheral/Neurovascular WDL Peripheral Neurovascular WDL WDL Cognitive/Neuro/Behavioral WDL Cognitive/Neuro/Behavioral WDL WDL Lester Coma Scale Best Eye Response 4-->(E4) spontaneous Best Motor Response 6-->(M6) obeys commands Best Verbal Response 5-->(V5) oriented [place] Coma Scale Score 15 TY SHERIFF BUILDING GUARD documented in this encounter Plan of Treatment Upcoming Encounters Date Type Department Care Team (Late st Contact Info) Description 07/10/2024 11:30 AM CDT Oncology Visit [facility] [address] [place] [address] Case Samuel MD [address] [facility] [address] [place] [address] documented as of this encounter Goals Goal Patient Goal Type Associated Problems Recent Progress Patient-Stated? Author Pain Management General On track( 025 12:40 PM DEPUTY SHERIFF BUILDING GUARD) Yes Juhi Benson, RN Note: Goal Statement: [...] Diagnosis Comments XR CHEST 2 VIEWS STAT 06/25/2024 10:3 5 PM DEPUTY SHERIFF BUILDING GUARD EKG 12-LEAD, TRACING ONLY STAT 06/25/2024 10:19 PM DEPUTY SHERIFF BUILDING GUARD ROUTINE UA WITH MICROSCOPIC REFLEX TO CULTURE STAT 06/25/2024 10:16 PM DEPUTY SHERIFF BUILDING GUARD CBC WITH PLATELETS AND DIFFERENTIAL STAT 06/25/2024 10:15 PM DEPUTY SHERIFF BUILDING GUARD TROPONIN T, HIGH SENSITIVITY STAT 06/25/2024 10:15 PM DEPUTY SHERIFF BUILDING GUARD CBC WITH PLATELETS & DIFFERENTIAL STAT 06/25/2024 10:15 PM DEPUTY SHERIFF BUILDING GUARD BASIC METABOLIC PANEL STAT 06/25/2024 10:15 PM DEPUTY SHERIFF BUILDING GUARD documented in this encounter Results * XR Chest 2 Views (06/25/2024 10:35 PM DEPUTY SHERIFF BUILDING GUARD) Anatomical Region Laterality Modality Chest Digital Radiogra phy 06/25/2024 10:3 5 PM DEPUTY SHERIFF BUILDING GUARD Impressions 06/25/2024 10:47 PM DEPUTY SHERIFF BUILDING GUARD IMPRESSION: Bilateral portacatheter with tips in the SVC. Mild low lung volumes. Heart size and pulmonary vascularity stable at the upper limits of normal. Mild patchy right middle lobe infiltrate or atelectasis. Narrative 06/25/2024 10:47 PM DEPUTY SHERIFF BUILDING GUARD EXAM: XR CHEST 2 VIEWS LOCATION: [facility] DATE: 06/25/2024 INDICATION: Chest pain, SSC. COMPARISON: 06/16/2024. Procedure Note Jayden Correa MD - 06/25/2024 EXAM: XR CHEST 2 VIEWS LOCATION: [facility] DATE: 06/25/2024 INDICATION: Chest pain, SSC. COMPARISON: 06/16/2024. IMPRESSION: Bilateral portacatheter with tips in the SVC. Mild low lungvolumes. Heart size and pulmonary vascularity stable at the upper limitsof normal. Mild patchy right middle lobe infiltrate or atelectasis. Polly Naylor MD IMG DIAGNOSTIC IMAGING ORDERABLE S Final Result * EKG 12-lead, tracing only (06/25/2024 10:19 PM DEPUTY SHERIFF BUILDING GUARD) Systolic Blood Pressure mmHg RADIOLOGY RESULTS Diastolic Blood Pressure mmHg RADIOLOGY RESULTS Ventricular Rate 87 BPM RAD IOLOGY RESULTS Atrial Rate 87 BPM RADIOLOG Y RESULTS WA Interval 162 ms RADIOLOG Y RESULTS QRS Duration 86 ms RADIOLO GY RESULTS QT 362 ms RADIOLOGY RESULTS QTc 435 ms RADIOLOGY RESULTS P [place] 54 degrees RADIOLOGY RESULTS R AXIS 84 degrees RADIOLOGY RESULTS T [place] 70 degrees RADIOLOGY RESULTS Interpretation ECG Sinus rhythm Normal ECG Unconfirmed report - interpretation of this ECG is computer generated - see medical record for final interpretation Confirmed by - EMERGENCY ROOM, PHYSICIAN ([id number]), medical editor Nivia Willson ([id number]) on 06/25/2024 10:56:42 PM RADIOLOGY RESULTS 06/25/2024 10:1 9 PM DEPUTY SHERIFF BUILDING GUARD 06/25/2024 10:56 PM DEPUTY SHERIFF BUILDING GUARD Polly Naylor MD ECG ORDERABLES Edited Result - Final RADIOLOGY RESULTS * (ABNORMAL) UA with Microscopic reflex to Culture (06/25/2024 10:16 PM DEPUTY SHERIFF BUILDING GUARD) Color Urine Light Yellow Colorless, Straw, Light Yellow, Yellow 06/25/2024 10:33 PM DEPUTY SHERIFF BUILDING GUARD [facility] Appearance Urine Clear Clear 06/26/19 10:33 PM DEPUTY SHERIFF BUILDING GUARD [facility] Glucose Urine Negative Negative mg/dL 06/25/2024 10:33 PM DEPUTY SHERIFF BUILDING GUARD [facility] Bilirubin Urine Negative Negative 10:33 PM DEPUTY SHERIFF BUILDING GUARD [facility] Ketones Urine Negative Negative mg/dL 06/25/2024 10:33 PM DEPUTY SHERIFF BUILDING GUARD [facility] Specific [place] Urine 1.009 1.003 - 1.035 06/25/2024 10:33 PM DEPUTY SHERIFF BUILDING GUARD [facility] Blood Urine Negative Negative 06/25/2024 10:33 PM DEPUTY SHERIFF BUILDING GUARD [facility] pH Urine 7.5(H) 5.0 - 7.0 06/25/2024 10:33 PM DEPUTY SHERIFF BUILDING GUARD [facility] Protein Albumin Urine Negative Negative mg/dL 06/25/2024 10:33 PM DEPUTY SHERIFF BUILDING GUARD [facility] Urobilinogen Urine Normal Normal, 2.0 mg/dL 06/25/2024 10:33 PM DEPUTY SHERIFF BUILDING GUARD [facility] Nitrite Urine Negative Negative 06/25/2024 10:33 PM DEPUTY SHERIFF BUILDING GUARD [facility] Leukocyte Esterase Urine Negative Negative 06/25/2024 10:33 PM DEPUTY SHERIFF BUILDING GUARD [facility] RBC Urine 0 <=2 /HPF 06/25/2024 10:33 PM DEPUTY SHERIFF BUILDING GUARD [facility] WBC Urine 0 <=5 /HPF 06/25/2024 10:33 PM DEPUTY SHERIFF BUILDING GUARD [facility] Squamous Epithelials Urine 2(H) <=1 /HPF 06/25/2024 10:33 PM DEPUTY SHERIFF BUILDING GUARD [facility] Urine URINE SPECIMEN OBTAINED BY CLEAN CATCH PROCEDURE / Unknown Non-blood Collection / Unknown 06/25/2024 10:16 PM DEPUTY SHERIFF BUILDING GUARD 06/25/2024 10:23 PM DEPUTY SHERIFF BUILDING GUARD Narrative [facility] - 06/25/2024 10:33 PM DEPUTY SHERIFF BUILDING GUARD Urine Culture not indicated us Polly Naylor MD LAB - URINE ORDERABLES Final Res ult [facility] [address] [facility], [address] [place] [address] * (ABNORMAL) CBC with platelets and differential (06/25/2024 10:15 PM DEPUTY SHERIFF BUILDING GUARD) WBC Count 12.5(H) 4.0 - 11.0 10e3/uL 06/25/2024 10:30 PM DEPUTY SHERIFF BUILDING GUARD [facility] RBC Count 2.32(L) 3.80 - 5.20 10e6/uL 06/25/2024 10:30 PM DEPUTY SHERIFF BUILDING GUARD [facility] Hemoglobin 7.8(L) 11.7 - 15.7 g/dL 06/25/2024 10:30 PM DEPUTY SHERIFF BUILDING GUARD [facility] Hematocrit 22.7(L) 35.0 - 47.0 % 06/25/2024 10:30 PM DEPUTY SHERIFF BUILDING GUARD [facility] MCV 98 78 - 100 fL 06/25/2024 10:30 PM DEPUTY SHERIFF BUILDING GUARD [facility] MCH 33.6(H) 26.5 - 33.0 pg 06/25/2024 10:30 PM DEPUTY SHERIFF BUILDING GUARD [facility] MCHC 34.4 31.5 - 36.5 g/dL 06/25/2024 10:30 PM DEPUTY SHERIFF BUILDING GUARD [facility] RDW 19.2(H) 10.0 - 15.0 % 06/25/2024 10:30 PM DEPUTY SHERIFF BUILDING GUARD [facility] Platelet Count 451(H) 150 - 450 10e3/uL 06/25/2024 10:30 PM DEPUTY SHERIFF BUILDING GUARD [facility] % Neutrophils 48 % 06/25/2024 10:30 PM DEPUTY SHERIFF BUILDING GUARD [facility] % Lymphocytes 39 % 06/25/2024 10:30 PM DEPUTY SHERIFF BUILDING GUARD [facility] % Monocytes 10 % 06/25/2024 10:30 PM DEPUTY SHERIFF BUILDING GUARD [facility] % Eosinophils 2 % 06/25/2024 10:30 PM DEPUTY SHERIFF BUILDING GUARD [facility] % Basophils 1 % 06/25/2024 10:30 PM DEPUTY SHERIFF BUILDING GUARD [facility] % Immature Granulocytes 1 % 06/25/2024 10:30 PM DEPUTY SHERIFF BUILDING GUARD [facility] NRBCs per 100 WBC 1(H) <1 /100 025 10:30 PM DEPUTY SHERIFF BUILDING GUARD [facility] Absolute Neutrophils 6.0 1.6 - 8.3 10e3/uL 06/25/2024 10:30 PM DEPUTY SHERIFF BUILDING GUARD [facility] Absolute Lymphocytes 4.8 0.8 - 5.3 10e3/uL 06/25/2024 10:30 PM DEPUTY SHERIFF BUILDING GUARD [facility] Absolute Monocytes 1.2 0.0 - 1.3 10e3/uL 06/25/2024 10:30 PM DEPUTY SHERIFF BUILDING GUARD [facility] Absolute Eosinophils 0.2 0.0 - 0.7 10e3/uL 06/25/2024 10:30 PM DEPUTY SHERIFF BUILDING GUARD [facility] Absolute Basophils 0.1 0.0 - 0.2 10e3/uL 06/25/2024 10:30 PM DEPUTY SHERIFF BUILDING GUARD [facility] Absolute Immature Granulocytes 0.1 <=0.4 10e3/uL 06/25/2024 10:30 PM DEPUTY SHERIFF BUILDING GUARD [facility] Absolute NRBCs 0.2 10e3/uL 06/25/2024 10:30 PM DEPUTY SHERIFF BUILDING GUARD [facility] Blood BLOOD SPECIMEN / Unknown IVAD (Port) / Unknown 06/25/2024 10:15 PM DEPUTY SHERIFF BUILDING GUARD 06/25/2024 10:24 PM DEPUTY SHERIFF BUILDING GUARD Polly Naylor MD LAB - BLOOD ORDERABLES Final Res ult LABORATORY [facility] [address] [facility], [address] [phone] * Troponin T, High Sensitivity (06/25/2024 10:15 PM DEPUTY SHERIFF BUILDING GUARD) [facility] Troponin T, High Sensitivity <6 <=14 ng/L 06/25/2024 10:51 PM DEPUTY SHERIFF BUILDING GUARD [facility] Comment: Either a High Sensitivity [...] provocative testing. Blood BLOOD SPECIMEN / Unknown IVAD (Port) / Unknown 06/25/2024 10:15 PM DEPUTY SHERIFF BUILDING GUARD 06/25/2024 10:24 PM DEPUTY SHERIFF BUILDING GUARD us Polly Naylor MD LAB - BLOOD ORDERABLES Final Res ult [facility] [address] [facility], [address] [phone] * (ABNORMAL) Basic metabolic panel (06/25/2024 10:15 PM DEPUTY SHERIFF BUILDING GUARD) Sodium 137 135 - 145 mmol/L 06/25/2024 10:51 PM DEPUTY SHERIFF BUILDING GUARD [facility] Potassium 3.7 3.4 - 5.3 mmol/L 06/25/2024 10:51 PM DEPUTY SHERIFF BUILDING GUARD [facility] Chloride 107 98 - 107 mmol/L 06/25/2024 10:51 PM DEPUTY SHERIFF BUILDING GUARD [facility] Carbon Dioxide (CO2) 22 22 - 29 mmol/L 06/25/2024 10:51 PM DEPUTY SHERIFF BUILDING GUARD [facility] Anion Gap 8 7 - 15 mmol/L 06/25/2024 10:51 PM DEPUTY SHERIFF BUILDING GUARD [facility] Urea Nitrogen 6.7 6.0 - 20.0 mg/dL 06/25/2024 10:51 PM DEPUTY SHERIFF BUILDING GUARD [facility] Creatinine 0.69 0.51 - 0.95 mg/dL 06/25/2024 10:51 PM DEPUTY SHERIFF BUILDING GUARD [facility] GFR Estimate >90 >60 mL/min/1.7 3m2 06/25/2024 10:51 PM DEPUTY SHERIFF BUILDING GUARD [facility] Comment:eGFR calculated us2020 CKD-EPI equation. Calcium 8.7(L) 8.8 - 10.4 mg/dL 06/25/2024 10:51 PM DEPUTY SHERIFF BUILDING GUARD [facility] Glucose 87 70 - 99 mg/dL 06/25/2024 10:51 PM DEPUTY SHERIFF BUILDING GUARD [facility] Blood BLOOD SPECIMEN / Unknown IVAD (Port) / Unknown 06/25/2024 10:15 PM DEPUTY SHERIFF BUILDING GUARD 06/25/2024 10:24 PM DEPUTY SHERIFF BUILDING GUARD us Polly Naylor MD LAB - BLOOD ORDERABLES Final Res ult [facility] [address] [facility], [address] [place] [address] documented in this encounter Visit Diagnoses Diagnosis Sickle cell disease with crisis (H) Hb-SS disease with crisis Chest pain, unspecified type documented in this encounter Administered Medications Inactive Administered Medications - up to 3 most recent administrations Medication Order MAR Action Action Date Dose Rate Site diphenhydrAMINE (BENADRYL) capsule 25 mg 25 mg, Oral, ONCE, On 06/25/24 at 2155, For 1 dose $Given 06/25/2024 10:39 PM DEPUTY SHERIFF BUILDING GUARD 25 mg heparin lock flush 100 unit/mL injection 5-10 mL 5-10 mL, Intracatheter, EVERY 28 DAYS, First dose on Wed06/26/24 at 0055, To de-access each port in dual implanted port. Flush with 10 mL NS sodium chloride 0.9% flush followed by 5 mL heparin (100 units/mL) at discharge and at least every 28 days. MAX: 5 mL per each port lumen $Given 06/26/2024 12:55 AM DEPUTY SHERIFF BUILDING GUARD 5 mLs hydromorphone (DILAUDID) injection 2 mg 2 mg, Intravenous, EVERY 1 HOUR PRN, severe pain, moderate pain, Starting on Wed06/25/24 at 2151, For 3 doses $Given 06/26/2024 12:37 AM DEPUTY SHERIFF BUILDING GUARD 2 mg $Given 06/25/2024 11:42 PM DEPUTY SHERIFF BUILDING GUARD 2 mg $Given 06/25/2024 10:36 PM DEPUTY SHERIFF BUILDING GUARD 2 mg ondansetron (ZOFRAN) injection 8 mg 8 mg, Intravenous, ONCE, Administer over 2-5 Minutes, On [place] 06/25/24 at 2155, For 1 dose $Given 06/25/2024 10:38 PM DEPUTY SHERIFF BUILDING GUARD 8 mg sodium chloride 0.9% BOLUS 1,000 mL Intravenous, 1,000 mL, ONCE, at 500 mL/hr, Administer over 2 Hours, On Wed06/25/24 at 2205, For 1 dose $New Bag 06/25/2024 10:18 PM DEPUTY SHERIFF BUILDING GUARD 1,000 mLs 500 mL/hr documented in this encounter Active and Recently Administered Medications Times are shown in DEPUTY SHERIFF BUILDING GUARD. Scheduled Medication Order 06/24/2024 06/25/2024 06/26/2024 diphenhydrAMINE (BENADRYL) capsule 25 mg (COMPLETED) 25 mg, Oral, ONCE, On [place] 06/25/24 at 2155, For 1 dose 2238 ($Given - Provider: Mely Barbour RN) heparin lock flush 100 unit/mL injection 5-10 mL 5-10 mL, Intracatheter, EVERY 28 DAYS, First dose on Wed06/26/24 at 0055, To de-access each port in dual implanted port. Flush with 10 mL NS sodium chloride 0.9% flush followed by 5 mL heparin (100 units/mL) at discharge and at least every 28 days. MAX: 5 mL per each port lumen 0055 ($Given - Provi nas: Mely Barbour RN) ondansetron (ZOFRAN) injection 8 mg (COMPLETED) 8 mg, Intravenous, ONCE, Administer over 2-5 Minutes, On 06/25/24 at 2155, For 1 dose 2238 ($Given - Provider: Mely Barbour RN) sodium chloride 0.9% BOLUS 1,000 mL (COMPLETED) Intravenous, 1,000 mL, ONCE, at 500 mL/hr, Administer over 2 Hours, On 06/25/24 at 2205, For 1 dose 2218 ($New Bag - Provider: Mely Barbour RN) 0033 (Stopped - Provider: Mely Barbour RN) PRN Medication Order 06/24/2024 06/25/2024 06/26/2024 hydromorphone (DILAUDID) injection 2 mg (COMPLETED) 2 mg, Intravenous, EVERY 1 HOUR PRN, severe pain, moderate pain, Starting on 06/25/24 at 2151, For 3 doses 2236 ($Given - Provider: Mely Barbour RN)2342 ($Given - Provider: Mely Barbour RN) 0037 ($Given - Provider: Mely Barbour RN) documented in this encounter Care Teams Social Science Research Assistant Relationship Specialty Start Date End Date Veronica Joseph MD [address] [place] [address] PCP - General Family Medicine 06/18/24 Mor Ramsey Medical Student 04/03/24 Case Samuel MD [address] [place] [address] 484, [address] [place] [address] Assigned Pediatric Specialist Provider 05/18/24 Juhi Benson, RN Specialty Dark Room Attendant Hematology & Oncology 05/29/24 documented as of this encounter
--- OUTSIDE RECORDS SUMMARY | 2024-06-30 22:33 | XMS_ITS | Encounter Summary ---
Author Organization [facility] Address [address] [place] [address] Care Team Providers Care Wood Molder Name Role Phone No Ref-Primary, Physician Primary Care Provider Mor Ramsey Unavailable Unavailable Case Samuel MD Unavailable [phone] Juhi Benson RN Unavailable Unavailable Reason for Visit * Reason Comments Sickle Cell Pain Crisis Encounter Details Date Type Department Care Team (Late st Contact Info) Description 06/06/2024 9:41 AM BREAKDOWN PERSON - 06/06/2024 1:[address] [facility] Emergency [facility] Emergency Room [facility] [place] [address] Marilia Summers MD [address] [place] [address] Sickle cell pain crisis (H) Discharge Disposition: [...] on file Legal Sex Female 8:25 AM BREAKDOWN PERSON Gender Identity Not on file Sexual Orientation Not on file documented as of this encounter Last Filed Vital Signs Vital Sign Reading Time Taken Comments Blood Pressure 122/82 06/06/2024 1:00 PM BREAKDOWN PERSON Pulse 77 06/06/2024 1:00 PM BREAKDOWN PERSON Temperature 36.9 C (98.5 F) 06/06/2024 9:33 AM BREAKDOWN PERSON Respiratory Rate 17 06/06/2024 9:33 AM BREAKDOWN PERSON Oxygen Saturation 98% 06/06/2024 1:00 PM BREAKDOWN PERSON Inhaled Oxygen Concentration - - Weight 52.2 kg (115 lb) 06/06/2024 9:33 AM BREAKDOWN PERSON Height 154.9 cm (5' 1) 06/06/2024 9:33 AM BREAKDOWN PERSON Body Mass Index 21.73 06/06/2024 9:33 AM BREAKDOWN PERSON documented in this encounter Discharge Instructions * Discharge Instructions* Marilia Summers MD - 06/06/2024 12:48 PM BREAKDOWN PERSON With the amount of hydromorphone that you [...] work on your care plan with your kiln loader to see if they would be agreeable to getting you an appointment with pain clinic even while you are waiting to start the plasmapheresis to work a bit more on a home pain regimen for you. Continue to follow your care plan discussed with your kiln loader to treat your sickle cell pain crisis. Your next dose of dilaudid should not be before 2:30 pm. KDOWN PERSON KDOWN PERSON * Attachments The following attachments cannot be sent through Care Everywhere. * Naloxone Nasal [place] (NALOXONE SPRAY - NASAL) ([place]ese) * Drug Overdose: Opioid ([place]) documented in this encounter Medications at Time [...] 05/01/2024 naloxone (NARCAN) 4 MG/0.1ML nasal spray [place] 1 spray (4 mg) into one nostril [...] WDL WDL Cognitive/Neuro/Behavioral WDL Cognitive/Neuro/Behavioral WDL WDL KDOWN PERSON * Marilia Summers MD - 06/06/2024 9:34 [...] our physician who is working with her kiln loader for the care plan. Per the patient [...] plans and they will talk with her kiln loader about the request for the patient to [...] do now have a major issue. Our medical secretary teacher Hattie and our security supervisor Augusto just saw the patient to get into the tanker driver seat and drive away after being told specifically that she cannot drive and that she had told us that her significant other was driving in to pick herup. 1328 Our security did have her on video (as internet developer concerned she did not get into a [...] Prescriptions NALOXONE (NARCAN) 4 MG/0.1ML NASAL SPRAY [place] 1 spray (4 mg) into one nostril [...] has been evaluated multiple times since in [place] and although she has a remote history [...] suspect she was slightly dehydrated. [facility] Documentation Medical Decision Making Obtained [...] with other provider:Did you involve another provider (outbound sales consultant, , pharmacy, etc.)?: No Discharge.continue current meds The creation of this record is based on the scribe???s observations of the work being performed by Alex Ashby and the provider???s statements to them. This document has been checked and approved byMD Marilia Martinez MD Emergency Medicine [facility] EMERGENCY ROOM Marilia Summers MD 06/06/24 1254 Marilia Summers MD 06/06/24 1257 Marilia Summers MD 06/06/24 1330 KDOWN PERSON KDOWN PERSON KDOWN PERSON documented in this encounter Plan of Treatment Upcoming Encounters Date Type Department Care Team (Late st Contact Info) Description 07/10/2024 11:30 AM CDT Oncology Visit [facility] [address] [place] [address] Case Samuel MD [address] [place] [address] 484, [address] [place], [place] [address] documented as of this encounter Goals Goal Patient Goal Type Associated Problems Recent Progress Patient-Stated? Author Pain Management General On track( 025 12:40 PM BREAKDOWN PERSON) Yes Juhi Benson RN Note: Goal Statement: [...] For 1 dose $Given 06/06/2024 10:22 AM BREAKDOWN PERSON 50 mg heparin lock flush 10 unit/mL [...] each port lumen $Given 06/06/2024 1:13 PM BREAKDOWN PERSON 5 mLs HYDROmorphone (DILAUDID) injection 2 mg 2 mg, Intravenous, EVERY 1 HOUR PRN, moderate pain, Starting on Wed06/06/24 at 0958, For 2 doses $Given 06/06/2024 11:31 AM BREAKDOWN PERSON 2 mg $Given 06/06/2024 10:22 AM BREAKDOWN PERSON 1 mg HYDROmorphone (DILAUDID) injection 2 mg 2 mg, Intravenous, ONCE, On Wed06/06/24 at 1300, For 1 dose $Given 06/06/2024 12:57 PM BREAKDOWN PERSON 2 mg lactated ringers BOLUS 1,000 mL Intravenous, 1,000 mL, ONCE, On Wed06/06/24 at 1000, For 1 dose $New Bag 06/06/2024 10:12 AM BREAKDOWN PERSON 1,000 mLs sodium chloride (PF) 0.9% PF [...] Recently Administered Medications Times are shown in BREAKDOWN PERSON. Scheduled Medication Order 06/04/2024 06/05/2024 06/06/2024 heparin [...] lumen documented in this encounter Care Teams Wood Molder Relationship Specialty Start Date End Date No Ref-Primary, Physician PCP - General 03/15/24 06/17/24 Mor Ramsey Medical Student 04/03/24 Case Samuel MD [address] [place] [address] 484, [address] [place] [address] Assigned Pediatric Specialist Provider 05/18/24 Juhi Benson, RN Specialty Chemistry Research Assistant Hematology & Oncology 05/29/24 documented as of this encounter
--- OUTSIDE RECORDS SUMMARY | 2024-06-30 22:33 | XMS_ITS | Encounter Summary ---
Author Organization [facility] Address [address] [place] [address]. [place] [address] Care Team Providers Care Registered Respiratory Technician Name Role Phone No Ref-Primary, Physician Primary Care Provider Mor Ramsey Unavailable Unavailable Case Samuel MD Unavailable [phone] Juhi Benson RN Unavailable Unavailable Reason for Visit * Reason Comments Infusion IVF + pain medicatio n Encounter Details Date Type Department Care Team (Late st Contact Info) Description 06/07/2024 1:30 PM CLOTH STOCK SORTER Infusion Therapy Visit [facility] [address] [place] [address] Case Samuel MD [address] [place] [address] 484, [address] [place], [place] [phone] Fever (Primary Dx); Sickle cell pain crisis [...] on file Legal Sex Female 8:25 AM CLOTH STOCK SORTER Gender Identity Not on file Sexual Orientation Not on file documented as of this encounter Last Filed Vital Signs Vital Sign Reading Time Taken Comments Blood Pressure 119/76 06/07/2024 3:43 PM CLOTH STOCK SORTER Pulse 72 06/07/2024 3:43 PM CLOTH STOCK SORTER Temperature 37 C (98.6 F) 06/07/2024 1:35 PM CLOTH STOCK SORTER Respiratory Rate 16 06/07/2024 1:35 PM CLOTH STOCK SORTER Oxygen Saturation 99% 06/07/2024 3:43 PM CLOTH STOCK SORTER Inhaled Oxygen Concentration - - Weight - - Height - - Body Mass Index - - documented in this encounter Patient Instructions * Patient Instructions* Tyson Hess RN - 06/07/2024 1:30 PM CLOTH STOCK SORTER Dear Gianna Hernández Thank you for choosing [facility] ([facility]) for your infusion. The following information is a summary of our appointment as well as important reminders. If you have any questions on your upcoming Specialty Infusion appointments, please call scheduling at [phone]. It was a pleasure taking care of you today. Sincerely, [facility] [address] [place] [address] H STOCK SORTER documented in this encounter Progress Notes * Tyson Hess RN - 06/07/2024 1:30 PM CST Infusion Nursing Note: Gianna Hernández presents today for IV infusion; IVF + pain medication. Patient seen by provider today: No Christmas Tree Farm Worker present during visit today: Not Applicable. Note: [...] all questions answered. AVS to patient via MYCHART. Patient will return as needed for next appointment. Patient discharged in stable condition accompanied by: self. Departure Mode: Ambulatory. Tyson Hess RN H STOCK SORTER documented in this encounter Plan of Treatment Upcoming Encounters Date Type Department Care Team (Late st Contact Info) Description 07/10/2024 11:30 AM CDT Oncology Visit [facility] [address] [place] [address] Case Samuel MD [address] [place] [address] 484, [address] [place] [address] documented as of this encounter Goals Goal Patient Goal Type Associated Problems Recent Progress Patient-Stated? Author Pain Management General On track( 025 12:40 PM CLOTH STOCK SORTER) Yes Juhi Benosn, RN Note: Goal Statement: I will establish [...] AND PLATELET MORPHOLOGY Routine 06/07/2024 1:15 PM CLOTH STOCK SORTER Sickle cell pain crisis (H) CBC WITH PLATELETS AND DIFFERENTIAL Routine 06/07/2024 1:15 PM CLOTH STOCK SORTER Sickle cell pain crisis (H) INFLUENZA A/B, RSV AND SARS-COV2 PCR Routine 06/07/2024 1:15 PM CLOTH STOCK SORTER Fever CBC WITH PLATELETS & DIFFERENTIAL Routine 06/07/2024 1:15 PM CLOTH STOCK SORTER Sickle cell pain crisis (H) BASIC METABOLIC PANEL Routine 06/07/2024 1:15 PM CLOTH STOCK SORTER Sickle cell pain crisis (H) documented in this encounter Results * (ABNORMAL) RBC and Platelet Morphology (06/07/2024 1:15 PM CLOTH STOCK SORTER) RBC Morphology Confirmed RBC Indices 06/07/2024 2:06 PM CLOTH STOCK SORTER [facility] Platelet Assessment Automated Count Confirmed. Platelet morphology is normal. Automated Count Confirmed. Platelet morphology is normal. 06/07/2024 2:06 PM CLOTH STOCK SORTER [facility] Ziegler-Agenda Bodies Present(A) None Seen 06/07/2024 2:06 PM CLOTH STOCK SORTER [facility] Polychromasia Slight(A) None Seen 06/07/2024 2:06 PM CLOTH STOCK SORTER [facility] Sickle Cells Moderate(A) None Seen 06/07/2024 2:06 PM CLOTH STOCK SORTER [facility] Target Cells Slight(A) None Seen 06/07/2024 2:06 PM CLOTH STOCK SORTER [facility] Teardrop Cells Slight(A) None Seen 06/07/2024 2:06 PM CLOTH STOCK SORTER [facility] Blood BLOOD SPECIMEN / Unknown IVAD (Port) / Unknown 06/07/2024 1:15 PM CLOTH STOCK SORTER 06/07/2024 1:35 PM CLOTH STOCK SORTER Case Samuel MD LAB - BLOOD ORDERABLES Fi nal Result [facility] [address] 1st [place] [address] * Influenza A/B, RSV and SARS-CoV2 PCR (COVID-19) Nasopharyngeal (06/07/2024 1:15 PM CLOTH STOCK SORTER) Pathologist [facility] Influenza A PCR Negative Negative 06/07/2024 3:32 PM CLOTH STOCK SORTER [facility] Influenza B PCR Negative Negative 06/07/2024 3:32 PM CLOTH STOCK SORTER [facility] RSV PCR Negative Negative 06/07/2024 3:32 PM CLOTH STOCK SORTER [facility] SARS CoV2 PCR Negative Negative 06/07/2024 3:32 PM CLOTH STOCK SORTER [facility] Comment:NEGATIVE: SARS-CoV-2 (COVID-19) RNA not detected, presumed negative. Swab NASOPHARYNGEAL STRUCTURE / Unknown Non-blood Collection / Unknown 06/07/2024 1:15 PM CLOTH STOCK SORTER 06/07/2024 1:36 PM CLOTH STOCK SORTER Narrative [facility] - 06/07/2024 3:32 PM CLOTH STOCK SORTER Testing was performed using the Xpert Xpress CoV2/Flu/RSV Assay on the [employer] GeneXpert Instrument. This test should be ordered [...] test was validated by the [email or web address]. These laboratories are certified under the Clinical Laboratory Improvement Amendments of 1988 (CLIA-88) as qualified to perfom high complexity laboratory testing. us Case Samuel MD LAB - MICRO GENERAL ORDER SYD Final Result [facility] Inf. Diseases Diag. Lab [address] [facility], Room [address] [place] [id number] * (ABNORMAL) CBC with platelets and differential (06/07/2024 1:15 PM CLOTH STOCK SORTER) WBC Count 13.7(H) 4.0 - 11.0 10e3/uL 06/07/2024 2:06 PM CLOTH STOCK SORTER [facility] RBC Count 2.80(L) 3.80 - 5.20 10e6/uL 06/07/2024 2:06 PM [facility] Hemoglobin 8.8(L) 11.7 - 15.7 g/dL 06/07/2024 2:06 PM [facility] Hematocrit 25.3(L) 35.0 - 47.0 % 06/07/2024 2:06 PM [facility] MCV 90 78 - 100 fL 06/07/2024 2:06 PM [facility] MCH 31.4 26.5 - 33.0 pg 06/07/2024 2:06 PM [facility] MCHC 34.8 31.5 - 36.5 g/dL 06/07/2024 2:06 PM [facility] RDW 19.4(H) 10.0 - 15.0 % 06/07/2024 2:06 PM [facility] Platelet Count 516(H) 150 - 450 10e3/uL 06/07/2024 2:06 PM [facility] % Neutrophils 67 % 06/07/2024 2:06 PM [facility] % Lymphocytes 20 % 06/07/2024 2:06 PM [facility] % Monocytes 11 % 06/07/2024 2:06 PM [facility] % Eosinophils 1 % 06/07/2024 2:06 PM [facility] % Basophils 1 % 06/07/2024 2:06 PM [facility] % Immature Granulocytes 0 % 06/07/2024 2:06 PM [facility] NRBCs per 100 WBC 1(H) <1 /100 025 2:06 PM [facility] Absolute Neutrophils 9.2(H) 1.6 - 8.3 10e3/uL 06/07/2024 2:06 PM [facility] Absolute Lymphocytes 2.7 0.8 - 5.3 10e3/uL 06/07/2024 2:06 PM [facility] Absolute Monocytes 1.5(H) 0.0 - 1.3 10e3/uL 06/07/2024 2:06 PM [facility] Absolute Eosinophils 0.1 0.0 - 0.7 10e3/uL 06/07/2024 2:06 PM [facility] Absolute Basophils 0.2 0.0 - 0.2 10e3/uL 06/07/2024 2:06 PM [facility] Absolute Immature Granulocytes 0.1 <=0.4 10e3/uL 06/07/2024 2:06 PM [facility] Absolute NRBCs 0.1 10e3/uL 06/07/2024 2:06 PM [facility] Blood BLOOD SPECIMEN / Unknown IVAD (Port) / Unknown 06/07/2024 1:15 PM CLOTH STOCK SORTER 06/07/2024 1:35 PM CLOTH STOCK SORTER us Case Samuel MD LAB - BLOOD ORDERABLES Fi nal Result [facility] [place] - [address] 1[address] [place] [address] * (ABNORMAL) Basic metabolic panel (06/07/2024 1:15 PM CLOTH STOCK SORTER) Sodium 139 135 - 145 mmol/L 06/07/2024 2:11 PM CLOTH STOCK SORTER [facility] Potassium 4.4 3.4 - 5.3 mmol/L 06/07/2024 2:11 PM CLOTH STOCK SORTER [facility] Chloride 109(H) 98 - 107 mmol/L 06/07/2024 2:11 PM CLOTH STOCK SORTER [facility] Carbon Dioxide (CO2) 22 22 - 29 mmol/L 06/07/2024 2:11 PM CLOTH STOCK SORTER [facility] Anion Gap 8 7 - 15 mmol/L 06/07/2024 2:11 PM [facility] Urea Nitrogen 7.4 6.0 - 20.0 mg/dL 06/07/2024 2:11 PM [facility] Creatinine 0.66 0.51 - 0.95 mg/dL 06/07/2024 2:11 PM CLOTH STOCK SORTER [facility] GFR Estimate >90 >60 mL/min/1.7 3m2 06/07/2024 2:11 PM [facility] Comment:eGFR calculated usin 2020 CKD-EPI equation. Calcium 9.3 8.8 - 10.4 mg/dL 06/07/2024 2:11 PM [facility] Glucose 98 70 - 99 mg/dL 06/07/2024 2:11 PM [facility] Blood BLOOD SPECIMEN / Unknown IVAD (Port) / Unknown 06/07/2024 1:15 PM CLOTH STOCK SORTER 06/07/2024 1:35 PM CLOTH STOCK SORTER us Case Samuel MD LAB - BLOOD ORDERABLES Fi nal Result Performing Organization Address [facility]/State/ZIP Co de Phone Number [facility] [address] 1[address] [place] [address] documented in this encounter Visit Diagnoses Diagnosis [...] pain crisis (H) $Given 06/07/2024 3:41 PM CLOTH STOCK SORTER 5 mLs HYDROmorphone (DILAUDID) injection 2 mg 2 mg, Intravenous, EVERY 1 HOUR PRN, severe pain, moderate pain, Starting on Wed06/07/24 at 1309, For 3 dosesIndications:Sickle cell pain crisis (H) $Given 06/07/2024 3:28 PM CLOTH STOCK SORTER 2 mg $Given 06/07/2024 2:30 PM CLOTH STOCK SORTER 2 mg $Given 06/07/2024 1:37 PM CLOTH STOCK SORTER 2 mg lactated ringers BOLUS 1,000 mL Intravenous, 1,000 mL, ONCE, at 500 mL/hr, Administer over 2 Hours, On Wed06/07/24 at 1315, For 1 doseIndications:Sickle cell pain crisis (H) $New Bag 06/07/2024 1:37 PM CLOTH STOCK SORTER 1,000 mLs 500 mL/hr documented in this encounter Additional Health Concerns Infection Onset Date Last Indicated Resolved Time Rule Out COVID-19 06/07/2024 06/07/2024 06/07/2024 3:32 PM CLOTH STOCK SORTER documented as of this encounter Care Teams Registered Respiratory Technician Relationship Specialty Start Date End Date No Ref-Primary, Physician PCP - General 03/15/24 06/17/24 Mor Ramsey Medical Student 04/03/24 Case Samuel MD [address] [place] [address] 484, [address] [place] [address] Assigned Pediatric Specialist Provider 05/18/24 Marcelino, Juhi, RN Specialty Scale Adjuster Hematology & Oncology 05/29/24 documented as of this encounter
--- OUTSIDE RECORDS SUMMARY | 2024-06-30 22:33 | XMS_ITS | Encounter Summary ---
Author Organization [facility] Address [address] [place] [address]. [place] [address] Care Team Providers Care Cyber Systems Administrator Name Role Phone No Ref-Primary, Physician Primary Care Provider Mor Ramsey Unavailable Unavailable Case Samuel MD Unavailable [phone] Juhi Benson RN Unavailable Unavailable Encounter Details [...] on file Legal Sex Female 8:25 AM SPORTS MANAGEMENT INTERNS[employer]IP Gender Identity Not on file Sexual Orientation Not on file documented as of this encounter Plan of Treatment Upcoming Encounters Date Type Department Care Team (Late st Contact Info) Description 07/10/2024 11:30 AM CDT Oncology Visit [facility] [address] [place] [address] Case Samuel MD [address] [place] [address] 484, [address] [place] [address] documented as of this encounter Goals Goal Patient Goal Type Associated Problems Recent Progress Patient-Stated? Author Pain Management General On track( 025 12:40 PM SPORTS MANAGEMENT INTER[employer]) Yes Juhi Benson, RN Note: Goal Statement: [...] on filedocumented in this encounter Care Teams Cyber Systems Administrator Relationship Specialty Start Date End Date No Ref-Primary, Physician PCP - General 03/15/24 06/17/24 Mor Ramsey Medical Student 04/03/24 Case Samuel MD [address] [place] [address] 484, [address] [place] [address] Assigned Pediatric Specialist Provider 05/18/24 Juhi Benson, RN Specialty Machine Leather Trimmer Hematology & Oncology 05/29/24 documented as of this encounter
--- OUTSIDE RECORDS SUMMARY | 2024-06-30 22:33 | XMS_ITS | Encounter Summary ---
Author Organization [facility] Address [address] [place] [address]. [place] [address] Care Team Providers Care Copy Messenger Name Role Phone No Ref-Primary, Physician Primary Care Provider Mor Ramsey Unavailable Unavailable Case Samuel MD Unavailable [phone] Juhi Benson RN Unavailable Unavailable Encounter Details [...] on file Legal Sex Female 8:25 AM BODY LINER Gender Identity Not on file Sexual Orientation Not on file documented as of this encounter Plan of Treatment Upcoming Encounters Date Type Department Care Team (Late st Contact Info) Description 07/10/2024 11:30 AM CDT Oncology Visit [facility] [address] [place] [address] Case Samuel MD [address] [place] [address] 484, [address] [place] [address] documented as of this encounter Goals Goal Patient Goal Type Associated Problems Recent Progress Patient-Stated? Author Pain Management General On track( 025 12:40 PM BODY LINER) Yes Juhi Benson, RN Note: Goal Statement: [...] on filedocumented in this encounter Care Teams Copy Messenger Relationship Specialty Start Date End Date No Ref-Primary, Physician PCP - General 03/15/24 06/17/24 Mor Ramsey Medical Student 04/03/24 Case Samuel MD [address] [place] [address] 484, [address] [place] [address] Assigned Pediatric Specialist Provider 05/18/24 Juhi Benson, RN Specialty Health Sciences Department Chair Hematology & Oncology 05/29/24 documented as of this encounter
--- OUTSIDE RECORDS SUMMARY | 2024-06-30 22:33 | XMS_ITS | Encounter Summary ---
Author Organization [facility] Address [address] [place] [address]. [place] [address] Care Team Providers Care Dancing Teacher Name Role Phone No Ref-Primary, Physician Primary Care Provider Mor Ramsey Unavailable Unavailable Case Samuel MD Unavailable [phone] Juhi Benson RN Unavailable Unavailable Encounter Details [...] on file Legal Sex Female 8:25 AM R&D ENGINEER Gender Identity Not on file Sexual Orientation Not on file documented as of this encounter Plan of Treatment Upcoming Encounters Date Type Department Care Team (Late st Contact Info) Description 07/10/2024 11:30 AM CDT Oncology Visit [facility] [address] [place] [address] Case Samuel MD [address] [place] [address] [address], [address] [place] [address] documented as of this encounter Goals Goal Patient Goal Type Associated Problems Recent Progress Patient-Stated? Author Pain Management General On track( 025 12:40 PM R&D ENGINEER) Yes Juhi Benson, RN Note: Goal [...] on filedocumented in this encounter Care Teams Dancing Teacher Relationship Specialty Start Date End Date No Ref-Primary, Physician PCP - General 03/15/24 06/17/24 Mor Ramsey Medical Student 04/03/24 Case Samuel MD [address] [place] [address] [address], [address] [place] [address] Assigned Pediatric Specialist Provider 05/18/24 Juhi Benson, RN Specialty Carving Machine Operator Hematology & Oncology 05/29/24 documented as of this encounter
--- OUTSIDE RECORDS SUMMARY | 2024-06-30 22:33 | XMS_ITS | Encounter Summary ---
Author Organization [facility] Address [address] [place] [address]. [place] [address] Care Team Providers Care Forestry Faculty Member Name Role Phone Roxy Mor Unavailable Unavailable Case Samuel MD Unavailable [phone] Juhi Benson RN Unavailable Unavailable Veronica Joseph MD Primary Care Provider [phone] Encounter Details Date Type Department Care Team [...] on file Legal Sex Female 8:25 AM BRISKET PULLER Gender Identity Not on file Sexual Orientation Not on file documented as of this encounter Plan of Treatment Upcoming Encounters Date Type Department Care Team (Late st Contact Info) Description 07/10/2024 11:30 AM CDT Oncology Visit [facility] [address] [place] [address] Case Samuel MD [address] [place] [address], [address] [place], [place] [id number] documented as of this encounter Goals Goal Patient Goal Type Associated Problems Recent Progress Patient-Stated? Author Pain Management General On track( 025 12:40 PM BRISKET PULLER) Yes Juhi Benson RN Note: Goal Statement: [...] on filedocumented in this encounter Care Teams Forestry Faculty Member Relationship Specialty Start Date End Date Veronica Joseph MD [address] [place] [address] PCP - General Family Medicine 06/18/24 Mor Ramsey Medical Student 04/03/24 Case Samuel MD [address] [place] [address], [address] [place] [address] Assigned Pediatric Specialist Provider 05/18/24 Juhi Benson, RN Specialty Space Buyer Hematology & Oncology 05/29/24 documented as of this encounter
--- OUTSIDE RECORDS SUMMARY | 2024-06-30 22:34 | XMS_ITS | Encounter Summary ---
Author Organization [facility] Address [address] [place] [address]. [place] [address] Care Team Providers Care Unemployment Examiner Name Role Phone No Ref-Primary, Physician Primary Care Provider Mor Ramsey Unavailable Unavailable Case Samuel MD Unavailable [phone] Juhi Benson RN Unavailable Unavailable Veronica Joseph MD Primary Care Provider [phone] Reason for Visit * Reason Comments Shortness of Breath Chest Pain Fever * Auth/Cert Specialty Diagnoses / Procedures Referred By Contac t Referred To Contact EMERGENCY MEDICINE Diagnoses Sickle cell pain crisis (H) [facility] Emergency Department [address] [place] [address] Phone: tel: Referral ID Status Reason Start Date Expiration Date Visits Re quested Visits Authorized [id number] 1 1 Encounter Details Date Type Department Care Team (Late st Contact Info) Description 06/16/2024 4:46 PM MUSIC COMPOSER - 06/20/2024 11:00 AM MUSIC COMPOSER Hospital Encounter [facility] 7C Med Surg [address] [place] [phone] Abimael Schofield MD [address] [place] [address] [id number] Esdras Markham MD [address] [place] [address] German Hall MD [address] [place] [address] [address] [place] [address] Sickle cell pain crisis (H) [...] on file Legal Sex Female 8:25 AM MUSIC COMPOSER Gender Identity Not on file Sexual Orientation Not on file documented as of this encounter Last Filed Vital Signs Vital Sign Reading Time Taken Comments Blood Pressure 106/62 06/20/2024 6:00 AM MUSIC COMPOSER Pulse 78 06/19/2024 2:25 PM MUSIC COMPOSER Temperature 36.7 C (98 F) 06/20/2024 6:00 AM MUSIC COMPOSER Respiratory Rate 18 06/20/2024 6:00 AM MUSIC COMPOSER Oxygen Saturation 99% 06/20/2024 6:00 AM MUSIC COMPOSER Inhaled Oxygen Concentration - - Weight - - Height - - Body Mass Index - - documented in this encounter Discharge Summaries * Rl Elias MD - 06/20/2024 8:39 AM CST [facility] Discharge Summary - Medicine & [...] her pain can be managed with her DIRECTOR OF MATERIALS MANAGEMENT dilaudid 4mg q6h PRN. Hematology team is aware of discharge today and will arrange follow up. - continue DIRECTOR OF MATERIALS MANAGEMENT dilaudid 4 mg Q6H PRN & further supportive cares as needed - follow up with Hematology as scheduled by their team - Continue DIRECTOR OF MATERIALS MANAGEMENT hydroxyurea 1000mg BID - Continue DIRECTOR OF MATERIALS MANAGEMENT folic acid 1mg daily - Continue topical diclofenac, lidocaine, icy hot PRN #ANGIE, resolved Likely prerenal with decreased PO intake. Cr 0.92 on admission, baseline ~0.61- 0.7. Improved with maintenance fluids. Encouraged adequate water intake at home. #Insomnia - melatonin 3 mg PRN #Anxiety - Continue DIRECTOR OF MATERIALS MANAGEMENT fluoxetine Consultations This Hospital Stay HEMATOLOGY ADULT IP CONSULT CARE MANAGEMENT / SOCIAL WORK IP CONSULT Code Status Full Code Nivia Carvajal, MS3 Ricardo 1 Hospitalist Service [facility] 7C MED SURG [address] [facility] [id number] Physical Exam Vital Signs: Temp: 98 ??F [...] upon discharge: activity as tolerated Follow Up ([facility]) Follow up with primary care provider, Veronica Joseph, within 7 days for hospital follow- up. Thefollowing labs/tests are recommended: CBC. Appointments [facility] and/or [facility] (with [facility] or [facility] provider or service). Call [phone] if you haven't heard regarding these appointments [...] inadequate. naloxone (NARCAN) 4 MG/0.1ML nasal spray Orange 1 spray (4 mg) into one nostril [...] Aydee Coughlin MD at 06/20/2024 11:52 AM MUSIC COMPOSER C COMPOSER C COMPOSER Associated attestation - Aydee Coughlin MD - 06/20/2024 11:52 AM MUSIC COMPOSER Physician Attestation I saw and evaluated this [...] 05/01/2024 naloxone (NARCAN) 4 MG/0.1ML nasal spray Orange 1 spray (4 mg) into one nostril [...] stated on the papers. Home supply :N/A. C COMPOSER * Araceli Ramires MD - 06/20/2024 8:42 [...] Overall, I spent 35 minutes today (DOS) [id number] and/or coordinating care as documented above and specifically listed as below: --Reviewing documentation related to patient's history and this current admission available in BackOps --Review and clinical interpretation of pertinent laboratory test results from this admission --Discussion with the patient --Discussion with patient's primary team --Documentation in the electronic health record C COMPOSER * Linda Lomax MD - 06/19/2024 7:43 [...] Service (when I saw the patient): 06/19/24 [facility] Progress Note - Medicine Service, MAROON TEAM [...] senna PRN for supportive measures - Continue DIRECTOR OF MATERIALS MANAGEMENT hydroxyurea 1000mg BID - Continue DIRECTOR OF MATERIALS MANAGEMENT folic acid 1mg daily - Monitoring CBC [...] melatonin 3 mg PRN #Anxiety - Continue DIRECTOR OF MATERIALS MANAGEMENT fluoxetine - Benadryl PRN per Pain Plan [...] Nivia Carvajal, MS3 Medical Student Medicine Service, [facility] TEAM [address] [place] [address] Securely message with Augmate (more info) Text page via [facility] Paging/Directory See signed in provider for up [...] previous visit (from the past 24 hours). C COMPOSER * Tejal Curry RN - 06/18/2024 6:54 PM CST Shift: 6933-6700 VS: Temp: 98.3 ??F (36.8 ??C) Temp [...] light appropriately Plan: Continue POC; manage pain C COMPOSER * Linda Lomax MD - 06/18/2024 10:18 AM CST [facility] Progress Note - Medicine Service, RICARDO TEAM 1 Date of Admission: 06/16/2024 Assessment [...] benadryl, senna PRN for supportive measures -Continue DIRECTOR OF MATERIALS MANAGEMENT hydroxyurea 1000mg BID -Continue DIRECTOR OF MATERIALS MANAGEMENT folic acid 1mg daily - monitoring CBC w/diff, LDH, reticulocyte count, and LDH daily - type & screened, consented - continue topical diclofenac, lidocaine, icy hot PRN - blood cultures, urine culture >> NGTD #ANGIE, resolved Likely prerenal with decreased PO intake. - mIVF with LR - CMP in AM #Insomnia - Continue DIRECTOR OF MATERIALS MANAGEMENT fluoxetine - melatonin 3 mg PRN Diet: [...] Hall . Linda Lomax MD Medicine Service, [address] Securely message with Augmate (more info) Text page via [facility] Paging/Directory See signed in provider for up [...] German Hall MD at 06/18/2024 3:16 PM MUSIC COMPOSER C COMPOSER C COMPOSER Associated attestation - German Hall MD - 06/18/2024 3:16 PM MUSIC COMPOSER Attestation: This patient has been seen and [...] Overall, I spent 35 minutes today (DOS) [id number]-[id number] and/or coordinating care as documented above and specifically listed as below: --Reviewing documentation related to patient's history and this current admission available in Back[employer] --Review and clinical interpretation of pertinent laboratory test results from this admission --Discussion with the patient --Discussion with patient's primary team --Documentation in the electronic health record C COMPOSER * Rl Elias MD - 06/17/2024 11:31 AM CST [facility] Progress Note - [facility] Date of Admission: 06/16/2024 [...] benadryl, senna PRN for supportive measures -Continue DIRECTOR OF MATERIALS MANAGEMENT hydroxyurea 1000mg BID -Continue DIRECTOR OF MATERIALS MANAGEMENT folic acid 1mg daily - monitoring CBC w/diff, LDH, reticulocyte count, and LDH daily - type & screened, consented - continue topical diclofenac, lidocaine, icy hot PRN - blood cultures, urine culture to evaluate any further source of infection #ANGIE Likely prerenal with decreased PO intake. - mIVF with LR - CMP in AM #Insomnia - Continue DIRECTOR OF MATERIALS MANAGEMENT fluoxetine - melatonin 3 mg PRN Diet: [...] Hall . RL ELIAS MD Medicine Service, [address] Securely message with Augmate ([employer] info) Text page via [facility] Paging/Directory See signed in provider for up [...] Narrative EXAM: XR CHEST 2 VIEWS LOCATION: [facility] DATE: 06/16/2024 INDICATION: chest pain COMPARISON: 06/12/2024 Impression IMPRESSION: Left chest port catheter in stable position. Stable position of right central venous catheter. No airspace opacity, pleural effusion or pneumothorax. Cosigned by German Hall MD at 06/18/2024 3:07 PM MUSIC COMPOSER C COMPOSER C COMPOSER C COMPOSER Associated attestation - German Hall MD - 06/18/2024 3:07 PM MUSIC COMPOSER Attestation: This patient has been seen and evaluated by me, German Hall MD. Discussed with the house staff team or resident(s) and agree with the findings and plan in this note. I have reviewed today's Medications, Vital Signs, and Labs. DOS 06/17 documented in this encounter H&P Notes * Laquita Kelley MD - 06/16/2024 7:59 PM CST [facility] History and Physical - Medicine Service, MARMATTHIAS [...] IV -mIVF with NS at 100ml/hr -Continue DIRECTOR OF MATERIALS MANAGEMENT hydroxyurea 1000mg BID -Continue DIRECTOR OF MATERIALS MANAGEMENT folic acid 1mg -PRN zofran for nausea -PRN benadryl for itching #ANGIE Likely prerenal with decreased PO intake. -mIVF with NS -Monitor #Insomnia -Continue DIRECTOR OF MATERIALS MANAGEMENT fluoxetine Diet: Regular DVT Prophylaxis: Enoxaparin (Lovenox) SQ Santiago Catheter: Not present Fluids: NS at 100ml/hr Lines: PRESENT Cardiac Monitoring: None Code Status: Full Clinically Significant Risk Factors Present on Admission # Anemia: based on hgb <11 # Financial/Environmental Concerns: Disposition Plan Expected Discharge Date: 06/18/2024 The patient's care was discussed with the Attending Physician, Dr. Markham . Laquita Kelley MD Medicine Service, [facility] Securely message with Augmate (more info) Text page via [facility] Paging/Directory See signed in provider for up to date coverage information Chief Complaint Pain History is obtained from the patient History of Present Illness Ginana Hernández is a 29 year old female [...] 4 MG/0.1ML nasal spray No No Sig: Orange 1 spray (4 mg) into one nostril [...] Esdras Markham MD at 06/17/2024 11:00 AM MUSIC COMPOSER C COMPOSER C COMPOSER Associated attestation - Esdras Markham MD - 06/17/2024 11:00 AM MUSIC COMPOSER Physician Attestation I saw this patient with [...] documented in this encounter Consult Notes * Adelaide Acevedo, DIRECTOR OF INDUSTRIAL RELATIONS - 06/18/2024 10:26 AM CSTAssociated Order(s): CARE [...] Communication Assessment Patient's communication style: spoken language (German or Bilingual) Cognitive Cognitive/Neuro/Behavioral: WDL Living Environment: [...] Depression: Not at risk (04/11/2024) [facility] PHQ-2 PHQ-2 TOTAL SCORE: 1 Housing Stability: [...] Social Connections: Socially Integrated (03/28/2024) Received from [facility] Social Connections Do you often feel [...] No Current Concerns Values/Beliefs: Spiritual, Cultural Beliefs, Nondenominational Practices, Values that affect care: no Discussed [...] Care management signing off. LAURA Palacios 06/18/2024 Vector Control Assistant Social Work and Care Management Department SEARCHABLE in [facility] - search SOCIAL WORK [facility] ([phone]) Wednesday and Wednesday Units: 4A Vocera, 4C Vocera, & 4E Vocera Units: 5A 6025-1920 Vocera, 5A 0682-6897 Vocera , BMT SW 1 BMT SW 2, BMT SW 3 & BMT SW 4 5C OffService 5401 - 5416 5C Off Service [phone] Units: 6A Vocera & 6B Vocera Units: 6C Vocera Units: 7A Vocera & 7B Vocera Units: 7C Med Surg 7401 thru 7418 and 7C Med Surg 7502 thru 7521 Unit: [facility] ED Vocera & [facility] Obs Vocera [facility] ([phone]) Wednesday and Wednesday Units: 5 Ortho Vocera, 5 Med Surg Vocera & WB ED Vocera Units: 6 Med Surg Vocera, 8 Med Surg Vocera, & 10 ICU Vocera After hours Vocera [facility] and After Hours Vocera [facility] Please NOTE changes to times below: Wednesday & Wednesday (1629 - 2029) Wed-Wed (3363-5260) [facility] Recognized Holidays ([phone]) Units: ALL - see above VOCERA links to units C COMPOSER * Drake Nina MD - 06/17/2024 8:55 AM CSTAssociated Order(s): HEMATOLOGY ADULT IP CONSULT Images from the original note were not included. Hematology Consult Note Date of Service: 06/17/2024 Patient: Gianna Hernández Admission Date: 06/16/2024 Hospital Day # 1 Hematology Diagnosis: Sickle Cell Disease Primary Outpatient Board Handler: Dr. Samuel Reason for Consult: Vasoocclusive pain [...] the care coordination note. Please continue her DIRECTOR OF MATERIALS MANAGEMENT hydrea and folic acid. Recommendations: - Please follow pain plan as outlined in the care coordination note in the summary section. - Ordered 1 unit PRBC along with blood consent which is placed in the chart. - Please continue DIRECTOR OF MATERIALS MANAGEMENT hydrea 1000 mg BID, Folate 1mg daily. [...] Drake Nina MD Hematology/Oncology/BMT Fellow PGY4 Pager: [phone] History of Present Illness: Gianna Hernández is [...] Currently Drug use: Never Social History Narrative Kbzc-lj-oprt mom. Recently moved to [place] from [place], [place]. She is 1 of 9 [...] Social Connections: Socially Integrated (03/28/2024) [facility] Social [facility]ctions [...] inadequate. naloxone (NARCAN) 4 MG/0.1ML nasal spray Orange 1 spray (4 mg) into one nostril [...] (Last four results): CMP Recent Labs Lab 06/17/24 0606/16/24173606/15/24 0609 06/14/24 0708 NA 134* 135 136 [...] 32 -- -- CBC Recent Labs Lab 06/17/24 0616 06/16/24173606/15/24 0609 06/14/24 0708 WBC 14.6* 21.0* 11.8* 13.4* RBC 1.97* 2.34* 2.27* 2.30* HGB 6.3* 7.4* 7.2* 6.9* HCT 17.9* 21.7* 20.4* 21.6* MCV 91 93 90 94 MCH 32.0 31.6 31.7 30.0 MCHC 35.2 34.1 35.3 31.9 RDW 20.1* 19.3* 19.0* 19.4* PLT 468* 551* 500* 501* INR Recent Labs Lab 06/12/241916 INR 1.37* Cosigned by Araceli Ramires MD at 06/17/2024 11:14 AM MUSIC COMPOSER C COMPOSER C COMPOSER Associated attestation - Araceli Ramires MD - 06/17/2024 11:14 AM MUSIC COMPOSER Hematology Consult Attending Attestation I reviewed the [...] Overall, I spent 60 minutes today (DOS) kxeh-vs-rufe and/or coordinating care as documented above and specifically listed as below: --Reviewing documentation related to patient's history and this current admission available in [facility] --Review and clinical interpretation of pertinent laboratory test results and radiology reports from this admission --Discussion of the patient's case with the members of the Hematology Consult Team --Discussion with the patient --Documentation in the electronic health record Araceli Ramires MD Date of Service: 06/17/2024 documented in this encounter ED Notes * Anabella Cooper RN - 06/17/2024 8:28 PM CST Bed: ED34 Expected date: Expected time: Means of arrival: Comments: G 41 C COMPOSER * Abimael Schofield MD - 06/16/2024 5:18 [...] sinus tachycardia rate of 122 with a [place] interval of 0.128 and a QRS duration of 0.074. The patient had a normal axis with no acute ST or T wave changes significant for ischemia. This is read by me personally. Procedures Results for orders placed or performed during the hospital encounter of 06/16/24 Chest XR, PA & LAT Status: None Narrative EXAM: XR CHEST 2 VIEWS LOCATION: [facility] DATE: 06/16/2024 INDICATION: chest pain COMPARISON: [...] Range ABO/RH(D) A POS SPECIMEN EXPIRATION DATE [id number] CBC with platelets differential Status: Abnormal (In process) Narrative The following orders were created for panel order CBC with platelets differential. Procedure Abnormality Status --------- ------ CBC with platelets and d...[[id number]] Abnormal Preliminary result RBC and Platelet Morphology[[id number]] In process Please view results for these tests on the individual orders. ABO/Rh type and screen Status: None (In process) Narrative The following orders were created for panel order ABO/Rh type and screen. Procedure Abnormality Status --------- ------ Adult Type and Screen[[id number]] Preliminary result Please view results for these tests on the individual orders. Medications sodium chloride (PF) 0.9% PF flush 3 mL (has no administration in time range) sodium chloride (PF) 0.9% PF flush 3 mL (has no administration in time range) sodium chloride 0.9% BOLUS 500 mL (500 mLs Intravenous $New Bag 06/16/24 0430) sodium chloride 0.9 % infusion (has no administration in time range) hydromorphone (DILAUDID) injection 2 mg (2 mg Intravenous $Given 06/16/24 7512) Critical care was not performed. Medical Decision [...] chest syndrome Admit Med Abimael Schofield MD [facility] EMERGENCY DEPARTMENT 06/16/2024 Abimael Schofield MD 06/16/24 1846 C COMPOSER * Yelitza Manriquez RN - 06/16/2024 4:37 [...] WDL WDL Cognitive/Neuro/Behavioral WDL Cognitive/Neuro/Behavioral WDL WDL C COMPOSER documented in this encounter Miscellaneous Notes * [...] verbalized hope to discharge to home today C COMPOSER * Summary of Care - Rene Morocho RN - 06/20/2024 12:38 AM CST (Change note type to summary of care) Reason for admission: Sickle cell crisis Admitted from: [facility] Report received from: Sarai Aburto 2 RN [...] (January-July only): No, pt declined Detailed Belongings: [place] sweater, brown jacket, sweatpants, glasses, wallet, phone, 2 chargers, air pods C COMPOSER * Plan of Care - Sarai Shrestha RN - 06/20/2024 12:11 AM CST Goal Outcome Evaluation: BP 103/79,HR 87bpm, resp 18,O2 99 RA Shift:1128-4503 Alert and oriented x4. Independent with ADLs. VSS. Pain managed with Q 2 hrs IV Dilaudid. C/O nausea PRN Zofran administered;effective. R chest port infusing LR @ 75 ml/hr. Report given to Rene BLACK in 7C. C COMPOSER * Plan of Care - Amelia Gannon RN - 06/19/2024 6:26 AM CST Images from the original note were not included. Shift: 6850-0801 VS: BP 118/85 (BP Location: Left arm) Pulse 99 Temp 98.2 ??F (36.8 ??C) (Oral) Resp 18 [id number]% Pain: Sickle cell pain. Tx with scheduled dilaudid q2hr Neuro: WDL, A&Ox4 Cardiac: WDL Respiratory: WDL, on RA, on pulse ox GI/: WDL, Voiding spontaneously Diet/Appetite: Regular diet LDA's: R. Chest port infusing LR @ 75 Skin: WDL Activity: Independent Tests/Procedures: Pertinent Labs/Lab Collection: Plan: Goal Outcome Evaluation: C COMPOSER * Plan of Care - Adelaide Acevedo MSW - 06/18/2024 11:05 AM CST Goal Outcome Evaluation: Plan of Care Reviewed With: patient Overall Patient Progress: improvingOverall Patient Progress: improving Pt anticipates discharge home w/ family once med ready C COMPOSER * Plan of Care - Amelia Gannon RN - 06/18/2024 6:51 AM CST Shift: 8197-3528 VS: BP 115/66 (BP Location: Right arm, [...] Platelet, Creatinine, Reticulocyte Plan: Goal Outcome Evaluation: C COMPOSER * Plan of Care - Lowell Pepper RN - 06/17/2024 9:37 PM CSTSummary: 5099-8781 BP 110/64 (BP Location: Right arm, Patient [...] availability. Intake/Output Summary (Last 24 hours) at 06/17/20245 Last data filed at 06/17/2024 2100 Gross per 24 hour Intake 3898.42 ml Output Not Measured-- Net 3898.42 ml Goal Outcome Evaluation: Improving Plan of Care Reviewed With: patient Overall Patient Progress: improving Problem: Adult Inpatient Plan of Care Goal: Readiness for Transition of Care Outcome: Progressing Problem: Adult Inpatient Plan of Care Goal: Optimal Comfort and Wellbeing Outcome: Progressing C COMPOSER * Provider Notification - Lowell Pepper RN - 06/17/2024 10:00 AM CST 06/17/24 0857 Critical Test Results/Notification Critical Lab Result (Lab Name and Value) Hgb 6.3 What Time Did The Lab Notify You? (follow up page. to day time provider.) Provider Notified yes Date of Provider Notification 06/17/24 Time of Provider Notification 0848 Mechanism of Provider notification telephone (via [facility]) What Provider Did You Notify? Neptali Elias MD Response aware (per primary teams. Awaiting recommendations from hematology team.) C COMPOSER * Plan of Care - Zaynab Veliz RN - 06/17/2024 6:55 AM CST Goal Outcome Evaluation: Plan of Care Reviewed With: patient Overall Patient Progress: improving Outcome Evaluation: Pt presented to ED with acute onset left sided chest pain & sickle cell pain crisis Shift: 3992-8852 VS: Stable on RA, afebrile Neuro: A&Ox4 Labs: hemoglobin 6.3, provider notified Pain/Nausea: pain rated 8-9/10 PRN: benadryl X2, zofran x 1 Diet: Regular IV Access: none Infusion(s): NACL 100ml/hr Lines/Drains: L-chest wall GI/: voids without difficulty Skin: intact Mobility: up ad chandler Plan: Continue POC C COMPOSER * Provider Notification - Zaynab Veliz RN - 06/17/2024 6:47 AM MUSIC COMPOSER Jovan encinas lab called, critical value, pt hemoglobin 6.3. C COMPOSER * Medication Scribe - Admission Medication History - Yennifer Edwards - 06/17/2024 4:14 AM CST Medication Scribe Admission Medication History Admission medication history is complete. The information provided in this note is only as accurateas the sources available at the time of the update. Information Source(s): Patient via in-person Pertinent Information: per pt+CE, pt reported taking medications on DIRECTOR OF MATERIALS MANAGEMENT medication list as directed. No DRH. Changes made to DIRECTOR OF MATERIALS MANAGEMENT medication list: Added: None Deleted: None Changed: None Allergies reviewed with patient and updates made in EHR: yes Medication History Completed By: Yennifer Edwards 06/17/2024 4:14 AM DIRECTOR OF MATERIALS MANAGEMENT Med List Medication Sig Last Dose/Taking cefpodoxime [...] 1 tablet by mouth daily. 06/16/2024 Morning C COMPOSER C COMPOSER documented in this encounter Plan of Treatment Upcoming Encounters Date Type Department Care Team (Late st Contact Info) Description 07/10/2024 11:30 AM CDT Oncology Visit [facility] [address] [place] [address] Case Samuel MD [address] [place] [address] 484, [address] [place], [place] [address] documented as of this encounter Goals Goal Patient Goal Type Associated Problems Recent Progress Patient-Stated? Author Pain Management General On track( 025 12:40 PM MUSIC COMPOSER) Yes Juhi Benson, SOFIA Note: Goal Statement: [...] PLATELETS AND DIFFERENTIAL STAT 06/20/2024 5:48 AM MUSIC COMPOSER LACTATE DEHYDROGENASE Routine 06/20/2024 5:48 AM MUSIC COMPOSER CBC WITH PLATELETS & DIFFERENTIAL STAT 06/20/2024 5:48 AM MUSIC COMPOSER RETICULOCYTE COUNT Routine 06/20/2024 5: 48 AM MUSIC COMPOSER COMPREHENSIVE METABOLIC PANEL Routine 06/20/2024 5:48 AM MUSIC COMPOSER RBC AND PLATELET MORPHOLOGY STAT 06/19/2024 9:30 AM MUSIC COMPOSER CBC WITH PLATELETS AND DIFFERENTIAL STAT 06/19/2024 9:30 AM MUSIC COMPOSER LACTATE DEHYDROGENASE STAT 06/19/2024 9:30 AM MUSIC COMPOSER CBC WITH PLATELETS & DIFFERENTIAL STAT 06/19/2024 9:30 AM MUSIC COMPOSER RETICULOCYTE COUNT STAT 06/19/2024 9: 30 AM MUSIC COMPOSER COMPREHENSIVE METABOLIC PANEL STAT 06/19/2024 9:30 AM MUSIC COMPOSER PLATELET COUNT STAT 06/19/2024 12:17 AM MUSIC COMPOSER CREATININE STAT 06/19/2024 12:17 AM MUSIC COMPOSER CBC WITH PLATELETS AND DIFFERENTIAL STAT 06/18/2024 8:24 AM MUSIC COMPOSER LACTATE DEHYDROGENASE STAT 06/18/2024 8:24 AM MUSIC COMPOSER CBC WITH PLATELETS & DIFFERENTIAL STAT 06/18/2024 8:24 AM MUSIC COMPOSER RETICULOCYTE COUNT STAT 06/18/2024 8: 24 AM MUSIC COMPOSER DIFFERENTIAL STAT 06/18/2024 8:24 AM MUSIC COMPOSER COMPREHENSIVE METABOLIC PANEL STAT 06/18/2024 8:24 AM MUSIC COMPOSER ROUTINE UA WITH MICROSCOPIC REFLEX TO CULTURE STAT 06/17/2024 1:11 PM MUSIC COMPOSER TRANSFUSE RED BLOOD CELLS (UNIT) STAT 06/17/2024 10:26 AM MUSIC COMPOSER PREPARE RED BLOOD CELLS (UNIT) STAT 06/17/2024 9:12 AM MUSIC COMPOSER TRANSFERRIN Add-On 06/17/2024 6:16 AM MUSIC COMPOSER IRON AND IRON BINDING CAPACITY Add-On 06/17/2024 6:16 AM MUSIC COMPOSER BASIC METABOLIC PANEL STAT 06/17/2024 6:16 AM MUSIC COMPOSER CBC WITH PLATELETS STAT 06/17/2024 6: 16 AM MUSIC COMPOSER TROPONIN T, HIGH SENSITIVITY STAT 06/16/2024 9:33 PM MUSIC COMPOSER XR CHEST 2 VIEWS STAT 06/16/2024 6:09 PM MUSIC COMPOSER RBC AND PLATELET MORPHOLOGY STAT 06/16/2024 5:37 PM MUSIC COMPOSER CBC WITH PLATELETS AND DIFFERENTIAL STAT 06/16/2024 5:37 PM MUSIC COMPOSER TYPE AND SCREEN, ADULT STAT 5:37 PM MUSIC COMPOSER TROPONIN T, HIGH SENSITIVITY STAT 06/16/2024 5:37 PM MUSIC COMPOSER CBC WITH PLATELETS & DIFFERENTIAL STAT 06/16/2024 5:37 PM MUSIC COMPOSER PROLACTIN STAT 06/16/2024 5:37 PM MUSIC COMPOSER COMPREHENSIVE METABOLIC PANEL STAT 06/16/2024 5:37 PM MUSIC COMPOSER BLOOD CULTURE STAT 06/16/2024 5:37 PM MUSIC COMPOSER ABO/RH TYPE AND SCREEN STAT 5:37 PM MUSIC COMPOSER EKG 12-LEAD, TRACING ONLY STAT 06/16/2024 4:55 PM MUSIC COMPOSER documented in this encounter Results * (ABNORMAL) CBC with platelets and differential (06/20/2024 5:48 AM MUSIC COMPOSER) [facility] WBC Count 9.3 4.0 - 11.0 10e3/uL 06/20/2024 6:05 AM MUSIC COMPOSER [facility] RBC Count 2.54(L) 3.80 - 5.20 10e6/uL 06/20/2024 6:05 AM MUSIC COMPOSER [facility] Hemoglobin 8.0(L) 11.7 - 15.7 g/dL 06/20/2024 6:05 AM MUSIC COMPOSER [facility] Hematocrit 23.2(L) 35.0 - 47.0 % 06/20/2024 6:05 AM MUSIC COMPOSER [facility] MCV 91 78 - 100 fL 06/20/2024 6:05 AM MUSIC COMPOSER [facility] MCH 31.5 26.5 - 33.0 pg 06/20/2024 6:05 AM MUSIC COMPOSER [facility] MCHC 34.5 31.5 - 36.5 g/dL 06/20/2024 6:05 AM MUSIC COMPOSER [facility] RDW 18.4(H) 10.0 - 15.0 % 06/20/2024 6:05 AM MUSIC COMPOSER [facility] Platelet Count 435 150 - 450 10e3/uL 06/20/2024 6:05 AM MUSIC COMPOSER [facility] % Neutrophils 47 % 06/20/2024 6:05 AM MUSIC COMPOSER [facility] % Lymphocytes 43 % 06/20/2024 6:05 AM MUSIC COMPOSER [facility] % Monocytes 6 % 06/20/2024 6:05 AM MUSIC COMPOSER [facility] % Eosinophils 3 % 06/20/2024 6:05 AM MUSIC COMPOSER [facility] % Basophils 1 % 06/20/2024 6:05 AM MUSIC COMPOSER [facility] % Immature Granulocytes 1 % 06/20/2024 6:05 AM MUSIC COMPOSER [facility] NRBCs per 100 WBC 1(H) <1 /100 025 6:05 AM MUSIC COMPOSER [facility] Absolute Neutrophils 4.4 1.6 - 8.3 10e3/uL 06/20/2024 6:05 AM MUSIC COMPOSER [facility] Absolute Lymphocytes 4.0 0.8 - 5.3 10e3/uL 06/20/2024 6:05 AM MUSIC COMPOSER [facility] Absolute Monocytes 0.5 0.0 - 1.3 10e3/uL 06/20/2024 6:05 AM MUSIC COMPOSER [facility] Absolute Eosinophils 0.3 0.0 - 0.7 10e3/uL 06/20/2024 6:05 AM MUSIC COMPOSER [facility] Absolute Basophils 0.1 0.0 - 0.2 10e3/uL 06/20/2024 6:05 AM MUSIC COMPOSER [facility] Absolute Immature Granulocytes 0.1 <=0.4 10e3/uL 06/20/2024 6:05 AM MUSIC COMPOSER [facility] Absolute NRBCs 0.1 10e3/uL 06/20/2024 6:05 AM MUSIC COMPOSER [facility] Blood (Portacath) IVAD (Port) / Unknown 06/20/2024 5:48 AM MUSIC COMPOSER 06/20/2024 5:55 AM MUSIC COMPOSER us Rl Elias MD LAB - BLOOD ORDER SYD Final Result [facility] [address] [facility], [address] [place] [address] * (ABNORMAL) Reticulocyte count (06/20/2024 5:48 AM MUSIC COMPOSER) Pathologist [facility] % Reticulocyte 9.6(H) 0.5 - 2.0 % 06/20/2024 6:37 AM MUSIC COMPOSER [facility] Absolute Reticulocyte 0.236(H) 0.025 - 0.095 10e6/uL 06/20/2024 6:37 AM MUSIC COMPOSER [facility] Blood (Portacath) IVAD (Port) / Unknown 06/20/2024 5:48 AM MUSIC COMPOSER 06/20/2024 5:55 AM MUSIC COMPOSER us Rl Elias MD LAB - BLOOD ORDER SYD Final Result [facility] [address] [facility], [address] [place] [phone] * (ABNORMAL) Comprehensive metabolic panel (06/20/2024 5:48 AM MUSIC COMPOSER) Sodium 133(L) 135 - 145 mmol/L 06/20/2024 6:35 AM MUSIC COMPOSER [facility] Potassium 4.6 3.4 - 5.3 mmol/L 06/20/2024 6:35 AM MUSIC COMPOSER [facility] Carbon Dioxide (CO2) 21(L) 22 - 29 mmol/L 06/20/2024 6:35 AM MUSIC COMPOSER [facility] Anion Gap 8 7 - 15 mmol/L 06/20/2024 6:35 AM MUSIC COMPOSER [facility] Urea Nitrogen 14.6 6.0 - 20.0 mg/dL 06/20/2024 6:35 AM MUSIC COMPOSER [facility] Creatinine 0.66 0.51 - 0.95 mg/dL 06/20/2024 6:35 AM MUSIC COMPOSER [facility] GFR Estimate >90 >60 mL/min/1.7 3m2 06/20/2024 6:35 AM MUSIC COMPOSER [facility] Comment:eGFR calculated us2020 CKD-EPI equation. Calcium 8.7(L) 8.8 - 10.4 mg/dL 06/20/2024 6:35 AM MUSIC COMPOSER [facility] Chloride 104 98 - 107 mmol/L 06/20/2024 6:35 AM MUSIC COMPOSER [facility] Glucose 100(H) 70 - 99 mg/dL 06/20/2024 6:35 AM MUSIC COMPOSER [facility] Alkaline Phosphatase 98 40 - 150 U/L 06/20/2024 6:35 AM MUSIC COMPOSER [facility] AST 67(H) 0 - 45 U/L 06/20/2024 6:35 AM MUSIC COMPOSER [facility] ALT 40 0 - 50 U/L 06/20/2024 6:35 AM MUSIC COMPOSER [facility] Protein Total 7.2 6.4 - 8.3 g/dL 06/20/2024 6:35 AM MUSIC COMPOSER [facility] Albumin 3.9 3.5 - 5.2 g/dL 06/20/2024 6:35 AM MUSIC COMPOSER [facility] Bilirubin Total 1.5(H) <=1.2 mg/dL 06/20/2024 6:35 AM MUSIC COMPOSER [facility] Blood (Portacath) IVAD (Port) / Unknown 06/20/2024 5:48 AM MUSIC COMPOSER 06/20/2024 5:55 AM MUSIC COMPOSER Rl Elias MD LAB - BLOOD ORDER SYD Final Result [facility] [address] [facility], [address] * (ABNORMAL) Lactate Dehydrogenase (06/20/2024 5:48 AM MUSIC COMPOSER) Pathologist [facility] Lactate Dehydrogenase 571(H) 0 - 250 U/L 06/20/2024 6:35 AM MUSIC COMPOSER [facility] Blood (Portacath) IVAD (Port) / Unknown 06/20/2024 5:48 AM MUSIC COMPOSER 06/20/2024 5:55 AM MUSIC COMPOSER Rl Elias MD LAB - BLOOD ORDER SYD Final Result [facility] [address] [facility], [address] * (ABNORMAL) RBC and Platelet Morphology (06/19/2024 9:30 AM MUSIC COMPOSER) Pathologist [facility] RBC Morphology Confirmed RBC Indices 06/19/2024 11:43 AM MUSIC COMPOSER [facility] Platelet Assessment Automated Count Confirmed. Giant platelets are present.(A) Automated Count Confirmed. Platelet morphology is normal. 06/19/2024 11:43 AM MUSIC COMPOSER [facility] Giant Platelets Slight(A) None Seen 11:43 AM MUSIC COMPOSER [facility] Elliptocytes None Seen None Seen 06/19/2024 11:43 AM MUSIC COMPOSER [facility] Polychromasia Slight(A) None Seen 06/19/2024 11:43 AM MUSIC COMPOSER [facility] RBC Fragments Slight(A) None Seen 06/19/2024 11:43 AM MUSIC COMPOSER [facility] Reactive Lymphocytes Present(A) None Seen 06/19/2024 11:43 AM MUSIC COMPOSER [facility] Sickle Cells Moderate(A) None Seen 06/19/2024 11:43 AM MUSIC COMPOSER [facility] Smudge Cells Present(A) None Seen 06/19/2024 11:43 AM MUSIC COMPOSER [facility] Target Cells Moderate(A) None Seen 06/19/2024 11:43 AM MUSIC COMPOSER [facility] Blood CENTRAL VENOUS CATHETER / Unknown VAD(CVC, PICC) / Unknown 06/19/2024 9:30 AM MUSIC COMPOSER 06/19/2024 9:42 AM MUSIC COMPOSER Rl Elias MD LAB - BLOOD ORDER SYD Final Result [facility] [address] [facility], [address] [place] [phone] * (ABNORMAL) CBC with platelets and differential (06/19/2024 9:30 AM MUSIC COMPOSER) WBC Count 9.9 4.0 - 11.0 10e3/uL 06/19/2024 11:43 AM MUSIC COMPOSER [facility] RBC Count 2.55(L) 3.80 - 5.20 10e6/uL 06/19/2024 11:43 AM MUSIC COMPOSER [facility] Hemoglobin 8.1(L) 11.7 - 15.7 g/dL 06/19/2024 11:43 AM MUSIC COMPOSER [facility] Hematocrit 24.0(L) 35.0 - 47.0 % 06/19/2024 11:43 AM MUSIC COMPOSER [facility] MCV 94 78 - 100 fL 06/19/2024 11:43 AM MUSIC COMPOSER [facility] MCH 31.8 26.5 - 33.0 pg 06/19/2024 11:43 AM MUSIC COMPOSER [facility] MCHC 33.8 31.5 - 36.5 g/dL 06/19/2024 11:43 AM MUSIC COMPOSER [facility] RDW 18.4(H) 10.0 - 15.0 % 06/19/2024 11:43 AM MUSIC COMPOSER [facility] Platelet Count 471(H) 150 - 450 10e3/uL 06/19/2024 11:43 AM MUSIC COMPOSER [facility] % Neutrophils 62 % 06/19/2024 11:43 AM MUSIC COMPOSER [facility] % Lymphocytes 28 % 06/19/2024 11:43 AM MUSIC COMPOSER [facility] % Monocytes 6 % 06/19/2024 11:43 AM MUSIC COMPOSER [facility] % Eosinophils 3 % 06/19/2024 11:43 AM MUSIC COMPOSER [facility] % Basophils 1 % 06/19/2024 11:43 AM MUSIC COMPOSER [facility] % Immature Granulocytes 1 % 06/19/2024 11:43 AM MUSIC COMPOSER [facility] NRBCs per 100 WBC 4(H) <1 /100 025 11:43 AM MUSIC COMPOSER [facility] Absolute Neutrophils 6.1 1.6 - 8.3 10e3/uL 06/19/2024 11:43 AM MUSIC COMPOSER [facility] Absolute Lymphocytes 2.7 0.8 - 5.3 10e3/uL 06/19/2024 11:43 AM MUSIC COMPOSER [facility] Absolute Monocytes 0.6 0.0 - 1.3 10e3/uL 06/19/2024 11:43 AM MUSIC COMPOSER [facility] Absolute Eosinophils 0.3 0.0 - 0.7 10e3/uL 06/19/2024 11:43 AM MUSIC COMPOSER [facility] Absolute Basophils 0.1 0.0 - 0.2 10e3/uL 06/19/2024 11:43 AM MUSIC COMPOSER [facility] Absolute Immature Granulocytes 0.1 <=0.4 10e3/uL 06/19/2024 11:43 AM MUSIC COMPOSER [facility] Absolute NRBCs 0.4 10e3/uL 06/19/2024 11:43 AM MUSIC COMPOSER [facility] Blood CENTRAL VENOUS CATHETER / Unknown VAD(CVC, PICC) / Unknown 06/19/2024 9:30 AM MUSIC COMPOSER 06/19/2024 9:42 AM MUSIC COMPOSER us Rl Elias MD LAB - BLOOD ORDER SYD Final Result [facility] [address] [facility], [address] * (ABNORMAL) Reticulocyte count (06/19/2024 9:30 AM MUSIC COMPOSER) % Reticulocyte 9.2(H) 0.5 - 2.0 % 06/19/2024 9:48 AM MUSIC COMPOSER [facility] Absolute Reticulocyte 0.234(H) 0.025 - 0.095 10e6/uL 06/19/2024 9:48 AM MUSIC COMPOSER [facility] Blood CENTRAL VENOUS CATHETER / Unknown VAD(CVC, PICC) / Unknown 06/19/2024 9:30 AM MUSIC COMPOSER 06/19/2024 9:42 AM MUSIC COMPOSER Rl Elias MD LAB - BLOOD ORDER SYD Final Result [facility] [address] [facility], [address] * (ABNORMAL) Comprehensive metabolic panel (06/19/2024 9:30 AM MUSIC COMPOSER) Pathologist [facility] Sodium 135 135 - 145 mmol/L 06/19/2024 10:13 AM MUSIC COMPOSER [facility] Potassium 4.4 3.4 - 5.3 mmol/L 06/19/2024 10:13 AM MUSIC COMPOSER [facility] Carbon Dioxide (CO2) 21(L) 22 - 29 mmol/L 06/19/2024 10:13 AM MUSIC COMPOSER [facility] Anion Gap 9 7 - 15 mmol/L 06/19/2024 10:13 AM MUSIC COMPOSER [facility] Urea Nitrogen 12.3 6.0 - 20.0 mg/dL 06/19/2024 10:13 AM MUSIC COMPOSER [facility] Creatinine 0.68 0.51 - 0.95 mg/dL 06/19/2024 10:13 AM MUSIC COMPOSER [facility] GFR Estimate >90 >60 mL/min/1.7 3m2 06/19/2024 10:13 AM MUSIC COMPOSER [facility] Comment:eGFR calculated us2020 CKD-EPI equation. Calcium 8.9 8.8 - 10.4 mg/dL 06/19/2024 10:13 AM MUSIC COMPOSER [facility] Chloride 105 98 - 107 mmol/L 06/19/2024 10:13 AM MUSIC COMPOSER [facility] Glucose 100(H) 70 - 99 mg/dL 06/19/2024 10:13 AM MUSIC COMPOSER [facility] Alkaline Phosphatase 94 40 - 150 U/L 06/19/2024 10:13 AM MUSIC COMPOSER [facility] AST 54(H) 0 - 45 U/L 06/19/2024 10:13 AM MUSIC COMPOSER [facility] ALT 31 0 - 50 U/L 06/19/2024 10:13 AM MUSIC COMPOSER [facility] Protein Total 7.1 6.4 - 8.3 g/dL 06/19/2024 10:13 AM MUSIC COMPOSER [facility] Albumin 3.9 3.5 - 5.2 g/dL 06/19/2024 10:13 AM MUSIC COMPOSER [facility] Bilirubin Total 1.5(H) <=1.2 mg/dL 06/19/2024 10:13 AM MUSIC COMPOSER [facility] Blood CENTRAL VENOUS CATHETER / Unknown VAD(CVC, PICC) / Unknown 06/19/2024 9:30 AM MUSIC COMPOSER 06/19/2024 9:41 AM MUSIC COMPOSER Rl Elias MD LAB - BLOOD ORDER SYD Final Result [facility] [address] [place] [address], [address] [phone] * (ABNORMAL) Lactate Dehydrogenase (06/19/2024 9:30 AM MUSIC COMPOSER) Lactate Dehydrogenase 507(H) 0 - 250 U/L 06/19/2024 10:13 AM MUSIC COMPOSER [facility] Blood CENTRAL VENOUS CATHETER / Unknown VAD(CVC, PICC) / Unknown 06/19/2024 9:30 AM MUSIC COMPOSER 06/19/2024 9:41 AM MUSIC COMPOSER Rl Elias MD LAB - BLOOD ORDER SYD Final Result [facility] [address] [facility], [address] [phone] * (ABNORMAL) Platelet count (06/19/2024 12:17 AM MUSIC COMPOSER) Pathologist [facility] Platelet Count 467(H) 150 - 450 10e3/uL 06/19/2024 12:44 AM MUSIC COMPOSER [facility] Blood BLOOD SPECIMEN / Unknown Venipuncture / Unknown 06/19/2024 12:17 AM MUSIC COMPOSER 06/19/2024 12:26 AM MUSIC COMPOSER us Laquita Kelley MD LAB - BLOOD ORDERABLES Final Re sult [facility] [address] [facility], [address] [phone] * Creatinine (06/19/2024 12:17 AM MUSIC COMPOSER) Pathologist [facility] Creatinine 0.72 0.51 - 0.95 mg/dL 06/19/2024 12:51 AM MUSIC COMPOSER [facility] GFR Estimate >90 >60 mL/min/1.7 3m2 06/19/2024 12:51 AM MUSIC COMPOSER [facility] Comment:eGFR calculated us2020 CKD-EPI equation. Blood BLOOD SPECIMEN / Unknown Venipuncture / Unknown 06/19/2024 12:17 AM MUSIC COMPOSER 06/19/2024 12:26 AM MUSIC COMPOSER us Laquita Kelley MD LAB - BLOOD ORDERABLES Final Re sult [facility] [address] [facility], [address] [phone] * (ABNORMAL) Manual Differential (06/18/2024 8:24 AM MUSIC COMPOSER) % Neutrophils 52 % 06/18/2024 9:35 AM MUSIC COMPOSER [facility] % Lymphocytes 39 % 06/18/2024 9:35 AM MUSIC COMPOSER [facility] % Monocytes 7 % 06/18/2024 9:35 AM MUSIC COMPOSER [facility] % Eosinophils 3 % 06/18/2024 9:35 AM MUSIC COMPOSER [facility] % Basophils 0 % 06/18/2024 9:35 AM MUSIC COMPOSER [facility] NRBCs per 100 WBC 13(H) <=0 % 06/18/2024 9:35 AM MUSIC COMPOSER [facility] Absolute Neutrophils 5.6 1.6 - 8.3 10e3/uL 06/18/2024 9:35 AM MUSIC COMPOSER [facility] Absolute Lymphocytes 4.2 0.8 - 5.3 10e3/uL 06/18/2024 9:35 AM MUSIC COMPOSER [facility] Absolute Monocytes 0.7 0.0 - 1.3 10e3/uL 06/18/2024 9:35 AM MUSIC COMPOSER [facility] Absolute Eosinophils 0.3 0.0 - 0.7 10e3/uL 06/18/2024 9:35 AM MUSIC COMPOSER [facility] Absolute Basophils 0.0 0.0 - 0.2 10e3/uL 06/18/2024 9:35 AM MUSIC COMPOSER [facility] Absolute NRBCs 1.4(H) <=0.0 10e3/uL 025 9:35 AM MUSIC COMPOSER [facility] RBC Morphology Confirmed RBC Indices 06/18/2024 9:35 AM MUSIC COMPOSER [facility] Platelet Assessment Automated Count Confirmed. Platelet morphology is normal. Automated Count Confirmed. Platelet morphology is normal. 06/18/2024 9:35 AM MUSIC COMPOSER [facility] RBC Fragments Slight(A) None Seen 06/18/2024 9:35 AM MUSIC COMPOSER [facility] Polychromasia Slight(A) None Seen 06/18/2024 9:35 AM MUSIC COMPOSER [facility] Sickle Cells Moderate(A) None Seen 06/18/2024 9:35 AM MUSIC COMPOSER [facility] Blood BLOOD SPECIMEN / Unknown Venipuncture / Unknown 06/18/2024 8:24 AM MUSIC COMPOSER 06/18/2024 8:32 AM MUSIC COMPOSER us Rl Elias MD LAB - BLOOD ORDER SYD Final Result [facility] [address] [facility], [address] [place] [address], [place] * (ABNORMAL) CBC with platelets and differential (06/18/2024 8:24 AM MUSIC COMPOSER) WBC Count 10.8 4.0 - 11.0 10e3/uL 06/18/2024 9:24 AM MUSIC COMPOSER [facility] RBC Count 2.51(L) 3.80 - 5.20 10e6/uL 06/18/2024 9:24 AM MUSIC COMPOSER [facility] Hemoglobin 8.1(L) 11.7 - 15.7 g/dL 06/18/2024 9:24 AM MUSIC COMPOSER [facility] Hematocrit 23.1(L) 35.0 - 47.0 % 06/18/2024 9:24 AM MUSIC COMPOSER [facility] MCV 92 78 - 100 fL 06/18/2024 9:24 AM MUSIC COMPOSER [facility] MCH 32.3 26.5 - 33.0 pg 06/18/2024 9:24 AM MUSIC COMPOSER [facility] MCHC 35.1 31.5 - 36.5 g/dL 06/18/2024 9:24 AM MUSIC COMPOSER [facility] RDW 18.7(H) 10.0 - 15.0 % 06/18/2024 9:24 AM MUSIC COMPOSER [facility] Platelet Count 452(H) 150 - 450 10e3/uL 06/18/2024 9:24 AM MUSIC COMPOSER [facility] Blood BLOOD SPECIMEN / Unknown Venipuncture / Unknown 06/18/2024 8:24 AM MUSIC COMPOSER 06/18/2024 8:32 AM MUSIC COMPOSER Rl Elias MD LAB - BLOOD ORDER SYD Final Result [facility] [address] [facility], [address] [place] [address], [facility] * (ABNORMAL) Reticulocyte count (06/18/2024 8:24 AM MUSIC COMPOSER) % Reticulocyte 10.0(H) 0.5 - 2.0 % 06/18/2024 8:38 AM MUSIC COMPOSER [facility] Absolute Reticulocyte 0.250(H) 0.025 - 0.095 10e6/uL 06/18/2024 8:38 AM MUSIC COMPOSER [facility] Blood BLOOD SPECIMEN / Unknown Venipuncture / Unknown 06/18/2024 8:24 AM MUSIC COMPOSER 06/18/2024 8:32 AM MUSIC COMPOSER Rl Elias MD LAB - BLOOD ORDER SYD Final Result [facility] [address] [facility], [address] [place] [address] * (ABNORMAL) Comprehensive metabolic panel (06/18/2024 8:24 AM MUSIC COMPOSER) Sodium 133(L) 135 - 145 mmol/L 06/18/2024 9:02 AM MUSIC COMPOSER [facility] Potassium 4.3 3.4 - 5.3 mmol/L 06/18/2024 9:02 AM MUSIC COMPOSER [facility] Carbon Dioxide (CO2) 21(L) 22 - 29 mmol/L 06/18/2024 9:02 AM MUSIC COMPOSER [facility] Anion Gap 7 7 - 15 mmol/L 06/18/2024 9:02 AM MUSIC COMPOSER [facility] Urea Nitrogen 9.2 6.0 - 20.0 mg/dL 06/18/2024 9:02 AM MUSIC COMPOSER [facility] Creatinine 0.65 0.51 - 0.95 mg/dL 06/18/2024 9:02 AM MUSIC COMPOSER [facility] GFR Estimate >90 >60 mL/min/1.7 3m2 06/18/2024 9:02 AM MUSIC COMPOSER [facility] Comment:eGFR calculated us2020 CKD-EPI equation. Calcium 8.7(L) 8.8 - 10.4 mg/dL 06/18/2024 9:02 AM MUSIC COMPOSER [facility] Chloride 105 98 - 107 mmol/L 06/18/2024 9:02 AM MUSIC COMPOSER [facility] Glucose 92 70 - 99 mg/dL 06/18/2024 9:02 AM MUSIC COMPOSER [facility] Alkaline Phosphatase 86 40 - 150 U/L 06/18/2024 9:02 AM MUSIC COMPOSER [facility] AST 45 0 - 45 U/L 06/18/2024 9:02 AM MUSIC COMPOSER [facility] ALT 27 0 - 50 U/L 06/18/2024 9:02 AM MUSIC COMPOSER [facility] Protein Total 7.0 6.4 - 8.3 g/dL 06/18/2024 9:02 AM MUSIC COMPOSER [facility] Albumin 3.9 3.5 - 5.2 g/dL 06/18/2024 9:02 AM MUSIC COMPOSER [facility] Bilirubin Total 1.4(H) <=1.2 mg/dL 06/18/2024 9:02 AM MUSIC COMPOSER [facility] Blood BLOOD SPECIMEN / Unknown Venipuncture / Unknown 06/18/2024 8:24 AM MUSIC COMPOSER 06/18/2024 8:32 AM MUSIC COMPOSER Rl Elias MD LAB - BLOOD ORDER SYD Final Result [facility] [address] [facility], [address] * (ABNORMAL) Lactate Dehydrogenase (06/18/2024 8:24 AM MUSIC COMPOSER) Lactate Dehydrogenase 491(H) 0 - 250 U/L 06/18/2024 9:02 AM MUSIC COMPOSER [facility] Blood BLOOD SPECIMEN / Unknown Venipuncture / Unknown 06/18/2024 8:24 AM MUSIC COMPOSER 06/18/2024 8:32 AM MUSIC COMPOSER us Rl Elias MD LAB - BLOOD ORDER SYD Final Result [facility]ATORY [facility] [address] [facility], [address] * Transfuse red blood cells (unit), Sickle Cell (Hgb S) Negative (06/17/2024 2:33 PM MUSIC COMPOSER) Result Caleb Nina MD BLOOD TRANSFUSION ORDERABLES Final Result * Transfuse red blood cells (unit), 1 Units, Sickle Cell (Hgb S) Negative (06/17/2024 2:33 PM MUSIC COMPOSER) Result Caleb Nina MD BLOOD TRANSFUSION ORDERABLES Final Result * (ABNORMAL) UA with Microscopic reflex to Culture (06/17/2024 1:11 PM MUSIC COMPOSER) Color Urine Light Yellow Colorless, Straw, Light Yellow, Yellow 06/17/2024 1:48 PM MUSIC COMPOSER [facility] Appearance Urine Clear Clear 06/17/19 1:48 PM MUSIC COMPOSER [facility] Glucose Urine Negative Negative mg/dL 06/17/2024 1:48 PM MUSIC COMPOSER [facility] Bilirubin Urine Negative Negative 1:48 PM MUSIC COMPOSER [facility] Ketones Urine Negative Negative mg/dL 06/17/2024 1:48 PM MUSIC COMPOSER [facility] Specific [place] Urine 1.009 1.003 - 1.035 06/17/2024 1:48 PM MUSIC COMPOSER [facility] Blood Urine Trace(A) Negative 06/17/2024 1:48 PM MUSIC COMPOSER [facility] pH Urine 6.5 5.0 - 7.0 06/17/2024 1:48 PM MUSIC COMPOSER [facility] Protein Albumin Urine Negative Negative mg/dL 06/17/2024 1:48 PM MUSIC COMPOSER [facility] Urobilinogen Urine Normal Normal, 2.0 mg/dL 06/17/2024 1:48 PM MUSIC COMPOSER [facility] Nitrite Urine Negative Negative 06/17/2024 1:48 PM MUSIC COMPOSER [facility] Leukocyte Esterase Urine Small(A) Negative 06/17/2024 1:48 PM MUSIC COMPOSER [facility] RBC Urine <1 <=2 /HPF 06/17/2024 1:48 PM MUSIC COMPOSER [facility] WBC Urine <1 <=5 /HPF 06/17/2024 1:48 PM MUSIC COMPOSER [facility] Squamous Epithelials Urine 3(H) <=1 /HPF 06/17/2024 1:48 PM MUSIC COMPOSER [facility] Urine URINE SPECIMEN OBTAINED BY CLEAN CATCH PROCEDURE / Unknown Non-blood Collection / Unknown 06/17/2024 1:11 PM MUSIC COMPOSER 06/17/2024 1:38 PM MUSIC COMPOSER Narrative [facility] - 06/17/2024 1:48 PM MUSIC COMPOSER Urine Culture not indicated us Rl Elias MD LAB - URINE ORDER SYD Final Result [facility] [address] [facility] [address], [address] [place] [address] * Prepare red blood cells (unit) (06/17/2024 9:12 AM MUSIC COMPOSER) [facility] Blood Component Type Red Blood Cells [facility] Product Code [id number] [facility] Unit Status Transfused [facility] Unit Number [id number] U[facility] B LOOD BANK CROSSMATCH COMPATIBLE [facility] CODING SYSTEM [id number] [facility] B[facility] OD BANK ISSUE DATE AND TIME [id number] [facility] UNIT ABO/RH A+ [facility] UNIT TYPE ISBT 6200 [facility] OOD BANK 06/17/2024 9:12 AM MUSIC COMPOSER us Drake Nina MD BLOOD BANK PRODUCT ORDERABLES Final Result Performing Organization Address [facility]/ZIP Co de Phone Number BLOOD BANK [address] [place] [address] * (ABNORMAL) Transferrin (06/17/2024 6:16 AM MUSIC COMPOSER) [facility] Transferrin 100.0(L) 200.0 - 360.0 mg/dL 06/17/2024 9:36 AM MUSIC COMPOSER [facility] Blood VENOUS LINE / Unknown IVAD (Port) / Unknown 06/17/2024 6:16 AM MUSIC COMPOSER 06/17/2024 6:27 AM MUSIC COMPOSER Drake Nina MD LAB - BLOOD ORDERABLES Final Result LABORATORY [facility] [address] [facility] [address] [facility], [address] [place] [id number] * Iron and iron binding capacity (06/17/2024 6:16 AM MUSIC COMPOSER) [facility] Iron 123 37 - 145 ug/dL 06/17/2024 10:02 AM MUSIC COMPOSER [facility] Iron Binding Capacity 06/17/2024 10:02 AM MUSIC COMPOSER [facility] Comment:Unable to calculate: UIBC or Iron value is outside detectable level. Iron Sat Index 06/17/2024 10:02 AM MUSIC COMPOSER [facility] Comment:Unable to calculate: UIBC or Iron value is outside detectable level. Blood VENOUS LINE / Unknown IVAD (Port) / Unknown 06/17/2024 6:16 AM MUSIC COMPOSER 06/17/2024 6:27 AM MUSIC COMPOSER us Drake Nina MD LAB - BLOOD ORDERABLES Final Result [facility] [address] [facility], [address] [place] [address] * (ABNORMAL) CBC with platelets (06/17/2024 6:16 AM MUSIC COMPOSER) WBC Count 14.6(H) 4.0 - 11.0 10e3/uL 06/17/2024 6:38 AM MUSIC COMPOSER [facility] RBC Count 1.97(L) 3.80 - 5.20 10e6/uL 06/17/2024 6:38 AM MUSIC COMPOSER [facility] Hemoglobin 6.3(LL) 11.7 - 15.7 g/dL 06/17/2024 6:38 AM MUSIC COMPOSER [facility] Hematocrit 17.9(L) 35.0 - 47.0 % 06/17/2024 6:38 AM MUSIC COMPOSER [facility] MCV 91 78 - 100 fL 06/17/2024 6:38 AM MUSIC COMPOSER [facility] MCH 32.0 26.5 - 33.0 pg 06/17/2024 6:38 AM MUSIC COMPOSER [facility] MCHC 35.2 31.5 - 36.5 g/dL 06/17/2024 6:38 AM MUSIC COMPOSER [facility] RDW 20.1(H) 10.0 - 15.0 % 06/17/2024 6:38 AM MUSIC COMPOSER [facility] Platelet Count 468(H) 150 - 450 10e3/uL 06/17/2024 6:38 AM MUSIC COMPOSER [facility] Blood VENOUS LINE / Unknown IVAD (Port) / Unknown 06/17/2024 6:16 AM MUSIC COMPOSER 06/17/2024 6:27 AM MUSIC COMPOSER us Laquita Kelley MD LAB - BLOOD ORDERABLES Final Re sult [facility] [address] [facility], [address] [place] [address] * (ABNORMAL) Basic metabolic panel (06/17/2024 6:16 AM MUSIC COMPOSER) Sodium 134(L) 135 - 145 mmol/L 06/17/2024 6:55 AM MUSIC COMPOSER [facility] Potassium 4.6 3.4 - 5.3 mmol/L 06/17/2024 6:55 AM MUSIC COMPOSER [facility] Chloride 105 98 - 107 mmol/L 06/17/2024 6:55 AM MUSIC COMPOSER [facility] Carbon Dioxide (CO2) 20(L) 22 - 29 mmol/L 06/17/2024 6:55 AM MUSIC COMPOSER [facility] Anion Gap 9 7 - 15 mmol/L 06/17/2024 6:55 AM MUSIC COMPOSER [facility] Urea Nitrogen 16.1 6.0 - 20.0 mg/dL 06/17/2024 6:55 AM MUSIC COMPOSER [facility] Creatinine 0.90 0.51 - 0.95 mg/dL 06/17/2024 6:55 AM MUSIC COMPOSER [facility] GFR Estimate 88 >60 mL/min/1.7 3m2 06/17/2024 6:55 AM MUSIC COMPOSER [facility] Comment:eGFR calculated us2020 CKD-EPI equation. Calcium 8.4(L) 8.8 - 10.4 mg/dL 06/17/2024 6:55 AM MUSIC COMPOSER [facility] Glucose 95 70 - 99 mg/dL 06/17/2024 6:55 AM MUSIC COMPOSER [facility] Blood VENOUS LINE / Unknown IVAD (Port) / Unknown 06/17/2024 6:16 AM MUSIC COMPOSER 06/17/2024 6:27 AM MUSIC COMPOSER Laquita Kelley MD LAB - BLOOD ORDERABLES Final Re sult [facility] [address] [facility], [address] [place] [address] * Troponin T, High Sensitivity (06/16/2024 9:33 PM MUSIC COMPOSER) Troponin T, High Sensitivity 8 <=14 ng/L 06/16/2024 10:13 PM MUSIC COMPOSER [facility] Comment: Either a High Sensitivity [...] IVAD (Port) / Unknown 06/16/2024 9:33 PM MUSIC COMPOSER 06/16/2024 9:44 PM MUSIC COMPOSER us Varghesegiulia Schofield MD LAB - BLOOD ORDERABLE S Final Result [facility] [address] [facility], [address] [phone] * Chest XR, PA & LAT (06/16/2024 6:09 PM MUSIC COMPOSER) Anatomical Region Laterality Modality Chest Digital Radiogra phy 06/16/2024 6:09 PM MUSIC COMPOSER Impressions 06/16/2024 6:13 PM MUSIC COMPOSER IMPRESSION: Left chest port catheter in stable position. Stable position of right central venous catheter. No airspace opacity, pleural effusion or pneumothorax. Narrative 06/16/2024 6:13 PM MUSIC COMPOSER EXAM: XR CHEST 2 VIEWS LOCATION: [facility] DATE: 06/16/2024 INDICATION: chest pain COMPARISON: 06/12/2024 Procedure Note Richar Haines MD - 06/16/2024 EXAM: XR CHEST 2 VIEWS LOCATION: [facility] DATE: 06/16/2024 INDICATION: chest pain COMPARISON: 06/12/2024 IMPRESSION: Left chest port catheter in stable position. Stable positionof right central venous catheter. No airspace opacity, pleural effusion orpneumothorax. us Abimael Schofield MD IMG DIAGNOSTIC IMAGIN G ORDERABLES Final Result * RBC and Platelet Morphology (06/16/2024 5:37 PM MUSIC COMPOSER) RBC Morphology Confirmed RBC Indices 06/16/2024 7:40 PM MUSIC COMPOSER [facility] Platelet Assessment Automated Count Confirmed. Platelet morphology is normal. Automated Count Confirmed. Platelet morphology is normal. 06/16/2024 7:40 PM MUSIC COMPOSER [facility] Blood BLOOD SPECIMEN / Unknown Venipuncture / Unknown 06/16/2024 5:37 PM MUSIC COMPOSER 06/16/2024 5:46 PM MUSIC COMPOSER us Varghesegiulia Schofield MD LAB - BLOOD ORDERABLE S Final Result Performing Organization Address City/[facility]/ZIP Co de Phone Number [facility] [address] [facility], [address] [phone] * Adult Type and Screen (06/16/2024 5:37 PM MUSIC COMPOSER) ABO/RH(D) A POS 06/16/2024 5:08 PM MUSIC COMPOSER [facility] Antibody Screen Negative Negative 06/16/2024 5:08 PM MUSIC COMPOSER [facility] Comment:Current antibody scr een is negative. Patient has a history of antibody(ies). A delay in compatible red blood cells may occur. SPECIMEN EXPIRATION DATE [id number] 06/16/2024 5:08 PM MUSIC COMPOSER [facility] Blood BLOOD SPECIMEN / Unknown Venipuncture / Unknown 06/16/2024 5:37 PM MUSIC COMPOSER 06/16/2024 5:46 PM MUSIC COMPOSER us Varghesegiulia Schofield MD LAB - BLOOD BANK TEST ORDER Final Result [facility] [address] [place] [phone], [facility] * (ABNORMAL) CBC with platelets and differential (06/16/2024 5:37 PM MUSIC COMPOSER) [facility] Signature WBC Count 21.0(H) 4.0 - 11.0 10e3/uL 06/16/2024 7:41 PM MUSIC COMPOSER [facility] RBC Count 2.34(L) 3.80 - 5.20 10e6/uL 06/16/2024 7:41 PM MUSIC COMPOSER [facility] Hemoglobin 7.4(L) 11.7 - 15.7 g/dL 06/16/2024 7:41 PM MUSIC COMPOSER [facility] Hematocrit 21.7(L) 35.0 - 47.0 % 06/16/2024 7:41 PM MUSIC COMPOSER [facility] MCV 93 78 - 100 fL 06/16/2024 7:41 PM MUSIC COMPOSER [facility] MCH 31.6 26.5 - 33.0 pg 06/16/2024 7:41 PM MUSIC COMPOSER [facility] MCHC 34.1 31.5 - 36.5 g/dL 06/16/2024 7:41 PM MUSIC COMPOSER [facility] RDW 19.3(H) 10.0 - 15.0 % 06/16/2024 7:41 PM MUSIC COMPOSER [facility] Platelet Count 551(H) 150 - 450 10e3/uL 06/16/2024 7:41 PM MUSIC COMPOSER [facility] % Neutrophils 69 % 06/16/2024 7:41 PM MUSIC COMPOSER [facility] % Lymphocytes 20 % 06/16/2024 7:41 PM MUSIC COMPOSER [facility] % Monocytes 9 % 06/16/2024 7:41 PM MUSIC COMPOSER [facility] % Eosinophils 0 % 06/16/2024 7:41 PM MUSIC COMPOSER [facility] % Basophils 1 % 06/16/2024 7:41 PM MUSIC COMPOSER [facility] % Immature Granulocytes 1 % 06/16/2024 7:41 PM MUSIC COMPOSER [facility] NRBCs per 100 WBC 1(H) <1 /100 025 7:41 PM MUSIC COMPOSER [facility] Absolute Neutrophils 14.5(H) 1.6 - 8.3 10e3/uL 06/16/2024 7:41 PM MUSIC COMPOSER [facility] Absolute Lymphocytes 4.2 0.8 - 5.3 10e3/uL 06/16/2024 7:41 PM MUSIC COMPOSER [facility] Absolute Monocytes 2.0(H) 0.0 - 1.3 10e3/uL 06/16/2024 7:41 PM MUSIC COMPOSER [facility] Absolute Eosinophils 0.0 0.0 - 0.7 10e3/uL 06/16/2024 7:41 PM MUSIC COMPOSER [facility] Absolute Basophils 0.2 0.0 - 0.2 10e3/uL 06/16/2024 7:41 PM MUSIC COMPOSER [facility] Absolute Immature Granulocytes 0.1 <=0.4 10e3/uL 06/16/2024 7:41 PM MUSIC COMPOSER [facility] Absolute NRBCs 0.3 10e3/uL 06/16/2024 7:41 PM MUSIC COMPOSER [facility] Blood BLOOD SPECIMEN / Unknown Venipuncture / Unknown 06/16/2024 5:37 PM MUSIC COMPOSER 06/16/2024 5:46 PM MUSIC COMPOSER us Varghesegiulia Schofield MD LAB - BLOOD ORDERABLE S Final Result Performing Organization Address City/[facility]/ZIP Co de Phone Number [facility] [address] [facility], [address] * (ABNORMAL) Prolactin (06/16/2024 5:37 PM MUSIC COMPOSER) Pathologist [facility] Prolactin 55(H) 5 - 23 ng/mL 06/16/2024 6:24 PM MUSIC COMPOSER [facility] Blood BLOOD SPECIMEN / Unknown Venipuncture / Unknown 06/16/2024 5:37 PM MUSIC COMPOSER 06/16/2024 5:46 PM MUSIC COMPOSER us Varghesegiulia Schofield MD LAB - BLOOD ORDERABLE S Final Result [facility] [address] [facility], [address] * Blood Culture Peripheral Blood (06/16/2024 5:37 PM MUSIC COMPOSER) Pathologist [facility] Culture No Growth 06/21/2024 6:47 PM MUSIC COMPOSER [facility] Blood BLOOD SPECIMEN / Unknown Venipuncture / Unknown 06/16/2024 5:37 PM MUSIC COMPOSER 06/16/2024 5:47 PM MUSIC COMPOSER Varghesegiulia Schofield MD LAB - MICRO GENERAL O RDERABLES Final Result Performing Organization Address City/[facility]/ZIP Co de Phone Number [facility] Inf. Diseases Diag. Lab [address] [facility], [address] * Troponin T, High Sensitivity (06/16/2024 5:37 PM MUSIC COMPOSER) Troponin T, High Sensitivity 6 <=14 ng/L 06/16/2024 6:24 PM MUSIC COMPOSER [facility] Comment: Either a High Sensitivity [...] Unknown Venipuncture / Unknown 06/16/2024 5:37 PM MUSIC COMPOSER 06/16/2024 5:46 PM MUSIC COMPOSER us Abimael Schofield MD LAB - BLOOD ORDERABLE S Final Result Performing Organization Address City/[facility]/ZIP Co de Phone Number LABORATORY [facility] [address] [facility], [address] * (ABNORMAL) Comprehensive metabolic panel (06/16/2024 5:37 PM MUSIC COMPOSER) Sodium 135 135 - 145 mmol/L 06/16/2024 6:24 PM MUSIC COMPOSER [facility] Potassium 4.2 3.4 - 5.3 mmol/L 06/16/2024 6:24 PM MUSIC COMPOSER [facility] Carbon Dioxide (CO2) 18(L) 22 - 29 mmol/L 06/16/2024 6:24 PM MUSIC COMPOSER [facility] Anion Gap 14 7 - 15 mmol/L 06/16/2024 6:24 PM MUSIC COMPOSER [facility] Urea Nitrogen 17.3 6.0 - 20.0 mg/dL 06/16/2024 6:24 PM MUSIC COMPOSER [facility] Creatinine 0.92 0.51 - 0.95 mg/dL 06/16/2024 6:24 PM MUSIC COMPOSER [facility] GFR Estimate 85 >60 mL/min/1.7 3m2 06/16/2024 6:24 PM MUSIC COMPOSER [facility] Comment:eGFR calculated us2020 CKD-EPI equation. Calcium 9.5 8.8 - 10.4 mg/dL 06/16/2024 6:24 PM MUSIC COMPOSER [facility] Chloride 103 98 - 107 mmol/L 06/16/2024 6:24 PM MUSIC COMPOSER [facility] Glucose 122(H) 70 - 99 mg/dL 06/16/2024 6:24 PM MUSIC COMPOSER [facility] Alkaline Phosphatase 105 40 - 150 U/L 06/16/2024 6:24 PM MUSIC COMPOSER [facility] AST 49(H) 0 - 45 U/L 06/16/2024 6:24 PM MUSIC COMPOSER [facility] ALT 32 0 - 50 U/L 06/16/2024 6:24 PM MUSIC COMPOSER [facility] Protein Total 8.6(H) 6.4 - 8.3 g/dL 06/16/2024 6:24 PM MUSIC COMPOSER [facility] Albumin 4.6 3.5 - 5.2 g/dL 06/16/2024 6:24 PM MUSIC COMPOSER [facility] Bilirubin Total 2.0(H) <=1.2 mg/dL 06/16/2024 6:24 PM MUSIC COMPOSER [facility] Blood BLOOD SPECIMEN / Unknown Venipuncture / Unknown 06/16/2024 5:37 PM MUSIC COMPOSER 06/16/2024 5:46 PM MUSIC COMPOSER us Varghese Cipriano Schofield MD LAB - BLOOD ORDERABLE S Final Result [facility] [address] [facility], [address] [place] [address], [facility] * EKG 12 lead (06/16/2024 4:55 PM MUSIC COMPOSER) Systolic Blood Pressure mmHg RADIOLOGY RESULTS Diastolic Blood Pressure mmHg RADIOLOGY RESULTS Ventricular Rate 122 BPM RAD IOLOGY RESULTS Atrial Rate 122 BPM RADIOLOG Y RESULTS [place] Interval 128 ms RADIOLOG Y RESULTS QRS Duration 74 ms RADIOLO GY RESULTS QT 314 ms RADIOLOGY RESULTS QTc 447 ms RADIOLOGY RESULTS P [place] 63 degrees RADIOLOGY RESULTS R AXIS 83 degrees RADIOLOGY RESULTS T [place] 29 degrees RADIOLOGY RESULTS Interpretation ECG Sinus tachycardia Otherwise normal ECG Unconfirmed report - interpretation of this ECG is computer generated - see medical record for final interpretation Confirmed by - EMERGENCY ROOM, PHYSICIAN ([id number]), magazine editor KARLA WILLIAMSON ([id number]) on 06/17/2024 6:56:59 AM RADIOLOGY RESULTS 06/16/2024 4:55 PM MUSIC COMPOSER 06/17/2024 6:56 AM MUSIC COMPOSER us Varghese Cipriano Schofield MD ECG ORDERABLES Edite d Result [...] days, Indications: pneumoniaIndications:pneumonia $Given 06/18/2024 8:40 PM MUSIC COMPOSER 200 mg $Given 06/18/2024 12:05 PM MUSIC COMPOSER 200 mg $Given 06/17/2024 9:25 PM MUSIC COMPOSER 200 mg diclofenac (VOLTAREN) 1 % topical gel 2 g 2 g, Topical, 4 TIMES DAILY, First dose on 06/17/24 at 1400, Apply to areas of pain. Use supplied dosing card to measure dose. diphenhydrAMINE (BENADRYL) capsule 25 mg 25 mg, Oral, EVERY 6 HOURS PRN, itching, Starting on Wed06/16/24 at 1956 $Given 06/19/2024 12:46 PM MUSIC COMPOSER 25 mg diphenhydrAMINE (BENADRYL) injection 25 mg 25 mg, Intravenous, EVERY 6 HOURS PRN, itching, Starting on Wed06/16/24 at 1956 $Given 06/20/2024 8:36 AM MUSIC COMPOSER 25 mg $Given 06/20/2024 2:08 AM MUSIC COMPOSER 25 mg $Given 06/19/2024 8:21 PM MUSIC COMPOSER 25 mg enoxaparin ANTICOAGULANT (LOVENOX) injection 40 mg 40 mg, Subcutaneous, EVERY 24 HOURS, First dose on Wed06/16/24 at 2100, Contact provider if platelet count drops by 50% or more after enoxaparin initiation OR if platelet count falls below 50 x 10e3/uL $Given 06/19/2024 8:29 PM MUSIC COMPOSER 40 mg $Given 06/18/2024 8:01 PM MUSIC COMPOSER 40 mg $Given 06/17/2024 9:32 PM MUSIC COMPOSER 40 mg FLUoxetine (PROzac) capsule 10 mg 10 mg, Oral, DAILY, First dose on Wed06/17/24 at 0800 $Given 06/20/2024 7:54 AM MUSIC COMPOSER 10 mg $Given 06/19/2024 8:54 AM MUSIC COMPOSER 10 mg $Given 06/18/2024 9:54 AM MUSIC COMPOSER 10 mg folic acid (FOLVITE) tablet 1 mg 1 mg, Oral, DAILY, First dose on Wed06/17/24 at 0800 $Given 06/20/2024 7:51 AM MUSIC COMPOSER 1 mg $Given 06/19/2024 8:54 AM MUSIC COMPOSER 1 mg $Given 06/18/2024 8:09 AM MUSIC COMPOSER 1 mg heparin lock flush 10 unit/mL [...] each port lumen $Given 06/20/2024 10:55 AM MUSIC COMPOSER 5 mLs hydromorphone (DILAUDID) injection 2 mg 2 mg, Intravenous, EVERY 1 HOUR PRN, moderate pain, Starting on Wed06/16/24 at 1708, For 3 doses $Given 06/16/2024 8:20 PM MUSIC COMPOSER 2 mg $Given 06/16/2024 5:42 PM MUSIC COMPOSER 2 mg hydromorphone (DILAUDID) injection 2 mg 2 mg, Intravenous, EVERY 3 HOURS, First dose on Wed06/16/24 at 2100, May use concomitant with non-opioid analgesics. $Given 06/16/2024 9:59 PM MUSIC COMPOSER 2 mg hydromorphone (DILAUDID) injection 2 mg 2 mg, Intravenous, EVERY 2 HOURS, First dose (after last modification) on Wed06/17/24 at 0000, May use concomitant with non-opioid analgesics. $Given 06/20/2024 9:53 AM MUSIC COMPOSER 2 mg $Given 06/20/2024 7:49 AM MUSIC COMPOSER 2 mg $Given 06/20/2024 5:51 AM MUSIC COMPOSER 2 mg hydroxyurea (HYDREA) capsule 1,000 mg 1,000 mg, Oral, 2 TIMES DAILY, First dose on Wed06/16/24 at 2100, Indications: Sickle cell anemia, Do not crush May require hepatic and/or renal dose or frequency adjustments. See reference link for guidelines.Indications:Sickle cell anemia $Given 06/20/2024 7:51 AM MUSIC COMPOSER 1,000 mg $Given 06/19/2024 8:13 PM MUSIC COMPOSER 1,000 mg $Given 06/19/2024 8:55 AM MUSIC COMPOSER 1,000 mg lactated ringers infusion at 75 mL/hr, Intravenous, CONTINUOUS, Starting on 06/18/24 at 0845, Until Tu06/20/24 at 0815 Rate/Dose Verify 06/20/2024 8:00 AM MUSIC COMPOSER 75 mL/hr $New Bag 06/19/2024 10:38 PM MUSIC COMPOSER 75 mL/hr Rate/Dose Verify 06/19/2024 8:29 PM MUSIC COMPOSER 75 mL/h r Lidocaine (LIDOCARE) 4 % [...] 06/16/24 at 1958 $Given 06/20/2024 2:08 AM MUSIC COMPOSER 4 mg $Given 06/19/2024 8:15 PM MUSIC COMPOSER 4 mg $Given 06/19/2024 12:46 PM MUSIC COMPOSER 4 mg polyethylene glycol (MIRALAX) Packet 17 g 17 g, Oral, DAILY PRN, constipation, Starting on 06/18/24 at 0830, IF more than 1 constipation [...] each port lumen. $Given 06/20/2024 10:54 AM MUSIC COMPOSER 10 mLs sodium chloride (PF) 0.9% PF flush 3 mL 3 mL, Intracatheter, EVERY 8 HOURS, First dose on Wed06/16/24 at 1710, to lock peripheral IV dormant line $Given 06/20/2024 12:24 AM MUSIC COMPOSER 3 mLs $Given 06/18/2024 6:22 PM MUSIC COMPOSER 3 mLs $Given 06/17/2024 7:34 AM MUSIC COMPOSER 3 mLs sodium chloride (PF) 0.9% PF flush 3 mL 3 mL, Intracatheter, EVERY 1 MIN PRN, line flush, other, to ensure patency or to lock dormant line, Starting on Wed06/16/24 at 1706 sodium chloride (PF) 0.9% PF flush 3 mL 3 mL, Intracatheter, EVERY 8 HOURS, First dose on Wed06/16/24 at 2100, to lock peripheral IV dormant line $Given 06/20/2024 4:41 AM MUSIC COMPOSER 3 mLs $Given 06/19/2024 12:56 PM MUSIC COMPOSER 3 mLs $Given 06/18/2024 12:07 PM MUSIC COMPOSER 3 mLs sodium chloride (PF) 0.9% PF flush 3 mL 3 mL, Intracatheter, EVERY 1 MIN PRN, line flush, other, to ensure patency or to lock dormant line, Starting on Wed06/16/24 at 2058 $Given 06/20/2024 5:5 2 AM MUSIC COMPOSER 3 mLs $Given 06/20/2024 2:59 AM MUSIC COMPOSER 3 mLs $Given 06/20/2024 2:07 AM MUSIC COMPOSER 3 mLs sodium chloride 0.9 % infusion at 75 mL/hr, Intravenous, CONTINUOUS, Starting on Wed06/16/24 at 1710, Until Wed06/18/24 at 0843 Rate/Dose Verify 06/18/2024 8:07 AM MUSIC COMPOSER 75 mL/hr $New Bag 06/17/2024 9:42 PM MUSIC COMPOSER 75 mL/hr $New Bag 06/17/2024 4:05 PM MUSIC COMPOSER 75 mL/hr sodium chloride 0.9% BOLUS 500 mL Intravenous, 500 mL, ONCE, at 500 mL/hr, Administer over 1 Hours, On Wed06/16/24 at 1710, For 1 dose $New Bag 06/16/2024 5:51 PM MUSIC COMPOSER 500 mLs 500 mL/hr documented in this encounter Active and Recently Administered Medications Times are shown in MUSIC COMPOSER. Scheduled Medication Order 06/18/2024 06/19/2024 06/20/2024 cefpodoxime [...] x 10e3/uL 2000 ($Given - Provider: Amelia Gannon RN) 2028 ($Given - Provider: Sarai Shrestha RN) FLUoxetine (PROzac) capsule 10 mg 10 mg, Oral, DAILY, First dose on Wed06/17/24 at 0800 0954 ($Given - Provider: Tejal Curry RN) 0854 ($Given - Provider: Anitha Cervantes RN) 0754 ($Given - Provider: Divya Reyes RN) folic acid (FOLVITE) tablet 1 mg 1 mg, Oral, DAILY, First dose on Wed06/17/24 at 0800 0809 ($Given - Provider: Tejal Curry RN) 0854 ($Given - Provider: Anitha Cervantes RN) 0751 ($Given - Provider: Divya Reyes, SOFIA) heparin lock flush 10 unit/mL injection [...] Intracatheter, EVERY 28 DAYS, First dose on 06/20/24 at 1030, To de-access each port in dual implanted port. Flush with 10 mL NS sodium chloride 0.9% flush followed by 5 mL heparin (100 units/mL) at discharge and at least every 28 days. MAX: 5 mL per each port lumen 1055 ($Given - Provider: Divya Reyes RN) hydromorphone (DILAUDID) injection 2 mg 2 [...] Anitha Cervantes RN)1036 ($Given - Provider: Kiki Caal RN)1248 ($Given - Provider: Kiki CaalSOFIA)1427 ($Given - Provider: Kiki Caal RN)1643 ($Given - Provider: Andrea Salinas RN)1830 ($Given - Provider: Kiki Caal RN)2025 ($Given - Provider: Sarai Shrestha RN)2223 ($Given - Provider: Sarai Shrestha RN) 0024 ($Given - Provider: Rene Morocho, SOFIA)0259 ($Given - Provider: Rene Morocho, SOFIA)0441 ($Given - Provider: Rene Morocho, RN)0551 ($Given - Provider: Rene Morocho, RN)0749 ($Given - Provider: Divya Reyes RN)0953 [...] guidelines. 0954 ($Given - Provider: Tejal Curry RN)195 ($Given - Provider: Amelia Gannon RN) 0855 ($Given - Provider: Anitha Cervantes RN)2012 ($Given - Provider: Sarai Shrestha RN) 0751 [...] port lumen. 1054 ($Given - Provider: Divya Reyes, SOFIA) sodium chloride (PF) 0.9% PF flush 3 mL 3 mL, Intracatheter, EVERY 8 HOURS, First dose on Wed06/16/24 at 1710, to lock peripheral IV dormant line 0023 (Not Given - Provider: Zaynab Veliz RN - Reason: IV Infusing)0829 (Not Given - Provider: Tejal Curry RN - Reason: IV Infusing)1822 ($Given - Provider: Tejal Curry, SOFIA) 0110 (Not Given - Provider: Amelia Gannon RN - Reason: IV Infusing)0845 (Not Given - Provider: Anitha Cervantes RN - Reason: IV Infusing)1759 (Not Given - Provider: Kiki Caal RN - Reason: IV Infusing) 0024 ($Given - Provider: Rene Morocho RN)1000 (Canceled Entry - Provider: Divya Reyes, SOFIA) sodium chloride (PF) 0.9% PF flush 3 mL 3 mL, Intracatheter, EVERY 8 HOURS, First dose on Wed06/16/24 at 2100, to lock peripheral IV dormant line 0508 (Not Given - Provider: Amelia Gannon RN - Reason: IV Infusing)1207 ($Given - Provider: Tejal Curry RN)2100 (Not Given - Provider: Amelia Gannon RN - Reason: IV Infusing) 0403 (Not Given - Provider: Amelia J. Jagdeep, RN - Reason: IV Infusing)1256 ($Given - Provider: Kiki Caal, SOFIA)2030 (Not Given - Provider: Sarai Shrestha, RN - Reason: IV Infusing) 0441 ($Given - Provider: Rene Morocho RN)1300 (Canceled Entry - Provider: Orders Generic Provider - Comment: Automatically canceled at discontinue of medication order) Continuous Medication Order 06/18/2024 06/19/2024 06/20/2024 lactated ringers infusion (CANCELED) at 75 mL/hr, Intravenous, CONTINUOUS, Starting on Wed06/18/24 at 0845, Until Wed06/20/24 at 0815 0949 ($New Bag - Provider: Tejal Curry RN)1158 (Rate/Dose Verify - Provider: Tejal Curyr RN)1412 (Rate/Dose Verify - Provider: Tejal Curry RN)1613 (Rate/Dose Verify - Provider: Tejal Curry RN)1821 (Rate/Dose Verify - Provider: Tejal Curry RN)2211 ($New Bag - Provider: Amelia Gannon RN) 1036 (Rate/Dose Verify - Provider: Kiki Caal RN)1256 (Rate/Dose Verify - Provider: Kiki Caal RN)2029 [...] HOURS PRN, itching, Starting on Wed06/16/24 at 1955 0010 (See Alternative - Provider: Zaynab Veliz RN)0559 (See Alternative - Provider: Amelia Gannon RN)1205 (See Alternative - Provider: Tejal Curry RN)1821 (See Alternative - Provider: Tejal Crury RN)2359 (See Alternative - Provider: Amelia Gannon RN) 0551 (See Alternative - Provider: Amelia Gannon RN)1246 ($Given - Provider: Kiki Caal RN)2020 (See Alternative - Provider: Sarai Shrestha RN) 0208 (See Alternative - Provider: Rene Morocho, SOFIA)0836 (See Alternative - Provider: Divya Reyes, SOFIA) diphenhydrAMINE (BENADRYL) injection 25 mg(Linked Group 1) 25 mg, Intravenous, EVERY 6 HOURS PRN, itching, Starting on Wed06/16/24 at 1955 0010 ($Given - Provider: Zaynab Veliz RN)0559 [...] - Provider: Rene Morocho RN - Comment: senior writer used scheudled dose instead of PRN [...] Gannon RN) 0552 ($Given - Provider: Amelia J. Jagdeep, RN)1246 ($Given - Provider: Kiki Caal, RN)2015 ($Given - Provider: Sarai Shrestha, RN) 0208 ($Given - Provider: Rene Morocho, SOFIA) polyethylene glycol (MIRALAX) Packet 17 g 17 [...] dormant line, Starting on Wed06/16/24 at 2058 0207 ($Given - Provider: Rene Morocho RN)0259 ($Given - Provider: Rnee Morocho RN)0552 ($Given - Provider: Rene Morocho RN) Linked Groups Order Group 1: diphenhydrAMINE (BENADRYL) capsule 25 mgJump to med 25 mg, Oral, EVERY 6 HOURS PRN, itching, Starting on Wed06/16/24 at 1956 Or diphenhydrAMINE (BENADRYL) injection 25 mgJump to med 25 mg, Intravenous, EVERY 6 HOURS PRN, itching, Starting on Wed06/16/24 at 1956 Group 2: senna-docusate (SENOKOT-S/PERICOLACE) 8.6-50 MG per [...] stools. documented in this encounter Care Teams Unemployment Examiner Relationship Specialty Start Date End Date No Ref-Primary, Physician PCP - General 03/15/24 06/17/24 Veronica Joseph MD [address] [place] [address] PCP - General Family Medicine 06/18/24 Elvira Ramseyc Medical Student 04/03/24 Case Samuel MD [address] [place] [address] 484, [address] [place] [address] Assigned Pediatric Specialist Provider 05/18/24 Juhi Benson, RN Specialty Checking Department Supervisor Hematology & Oncology 05/29/24 documented as of this encounter
--- OUTSIDE RECORDS SUMMARY | 2024-06-30 22:34 | XMS_ITS | Encounter Summary ---
Author Organization [place] Address [address] [place] [address] Care Team Providers Care Stone Rigger Name Role Phone Roxy Mor Unavailable Unavailable Case Samuel MD Unavailable [phone] Juhi Benson RN Unavailable Unavailable Veronica Joseph MD Primary Care Provider [phone] Reason for Visit * Reason Comments Sickle Cell Pain Crisis Encounter Details Date Type Department Care Team (Late st Contact Info) Description 06/22/2024 5:23 PM FOUNDER AND CHIEF TECHNICAL OFFICER - 06/22/2024 10:02 PM FOUNDER AND CHIEF TECHNICAL OFFICER Emergency [facility] Emergency Department [address] [place] [id number] Lynne Varner MD [address] [place] [id number] Sickle cell anemia with crisis (H) Discharge [...] an overnight senior living, or couch-surfing.) Yes 06/20/2024 Are you worried [...] on file Legal Sex Female 8:25 AM FOUNDER AND CHIEF TECHNICAL OFFICER Gender Identity Not on file Sexual Orientation Not on file documented as of this encounter Last Filed Vital Signs Vital Sign Reading Time Taken Comments Blood Pressure 104/73 06/22/2024 5:03 PM FOUNDER AND CHIEF TECHNICAL OFFICER Pulse 100 06/22/2024 5:03 PM FOUNDER AND CHIEF TECHNICAL OFFICER Temperature 36.8 C (98.2 F) 06/22/2024 5:03 PM FOUNDER AND CHIEF TECHNICAL OFFICER Respiratory Rate 16 06/22/2024 5:03 PM FOUNDER AND CHIEF TECHNICAL OFFICER Oxygen Saturation 99% 06/22/2024 5:03 PM FOUNDER AND CHIEF TECHNICAL OFFICER Inhaled Oxygen Concentration - - Weight 52.2 kg (115 lb) 06/22/2024 5:03 PM FOUNDER AND CHIEF TECHNICAL OFFICER Height 154.9 cm (5' 1) 06/22/2024 5:03 PM FOUNDER AND CHIEF TECHNICAL OFFICER Body Mass Index 21.73 06/22/2024 5:03 PM FOUNDER AND CHIEF TECHNICAL OFFICER documented in this encounter Discharge Instructions * Discharge Instructions* Lynne Varner MD - 06/22/2024 5:43 PM FOUNDER AND CHIEF TECHNICAL OFFICER TODAY'S VISIT: You were seen today for [...] new or worsening symptoms or any concerns. DER AND CHIEF TECHNICAL OFFICER * Attachments The following attachments cannot be sent through Care Everywhere. * Sickle Cell Crisis (Zimbabwean) documented in this encounter Medications at Time [...] 05/01/2024 naloxone (NARCAN) 4 MG/0.1ML nasal spray [place] 1 spray (4 mg) into one nostril [...] needed for severe pain. 40 tablet 06/15/2024 5 documented as of this encounter ED [...] Surgical History, and Social History in the [employer] system. Past Medical History: Diagnosis Date Acute [...] 11 naloxone (NARCAN) 4 MG/0.1ML nasal spray [place] 1 spray (4 mg) into one nostril [...] Concern Not on file Social History Narrative [id number] mom. Recently moved to [place] from [place], [place]. She is 1 of 9 [...] Integrated (03/28/2024) [facility] Social Connections Do you often feel [...] Status --------- ------ CBC with platelets and d...[[id number]] Abnormal Final result RBC and Platelet Morphology[[id number]] Please view results for these tests on [...] with crisis (H) LYNNE VARNER MD 06/22/2024 [facility] EMERGENCY DEPARTMENT Lynne Varner MD 06/22/24 0887 DER AND CHIEF TECHNICAL OFFICER * Milagros Lofotn RN - 06/22/2024 5:06 PM CST Pt is here for sickle cell crisis. Pain in her back and both legs. PT took her home dilaudid oral at 2 pm. Pt coming in for her pain. Denies any symptoms. Triage Assessment (Adult) Row Name 06/22/24 8020 Triage Assessment Airway WDL WDL Respiratory WDL Respiratory WDL WDL Skin Circulation/Temperature WDL Skin Circulation/Temperature WDL WDL Cardiac WDL Cardiac WDL WDL Cardiac Rhythm Other (Comment) Peripheral/Neurovascular WDL Peripheral Neurovascular WDL WDL Cognitive/Neuro/Behavioral WDL Cognitive/Neuro/Behavioral WDL WDL DER AND CHIEF TECHNICAL OFFICER documented in this encounter Plan of Treatment Upcoming Encounters Date Type Department Care Team (Late st Contact Info) Description 07/10/2024 11:30 AM CDT Oncology Visit [facility] [address] [place] [address] Case Samuel MD [address] [facility] [address], [address] [place], [place] [id number] documented as of this encounter Goals Goal Patient Goal Type Associated Problems Recent Progress Patient-Stated? Author Pain Management General On track( 025 12:40 PM FOUNDER AND CHIEF TECHNICAL OFFICER) Yes Juhi Benson, SOFIA Note: Goal [...] PLATELETS AND DIFFERENTIAL STAT 06/22/2024 7:10 PM FOUNDER AND CHIEF TECHNICAL OFFICER CBC WITH PLATELETS & DIFFERENTIAL STAT 06/22/2024 7:10 PM FOUNDER AND CHIEF TECHNICAL OFFICER RETICULOCYTE COUNT STAT 06/22/2024 7: 10 PM FOUNDER AND CHIEF TECHNICAL OFFICER HCG QUALITATIVE STAT 06/22/2024 7:10 PM FOUNDER AND CHIEF TECHNICAL OFFICER COMPREHENSIVE METABOLIC PANEL STAT 06/22/2024 7:10 PM FOUNDER AND CHIEF TECHNICAL OFFICER documented in this encounter Results * (ABNORMAL) CBC with platelets and differential (06/22/2024 7:10 PM FOUNDER AND CHIEF TECHNICAL OFFICER) Pathologist [facility] WBC Count 13.7(H) 4.0 - 11.0 10e3/uL 06/22/2024 7:47 PM FOUNDER AND CHIEF TECHNICAL OFFICER [facility] RBC Count 2.48(L) 3.80 - 5.20 10e6/uL 06/22/2024 7:47 PM FOUNDER AND CHIEF TECHNICAL OFFICER [facility] Hemoglobin 8.2(L) 11.7 - 15.7 g/dL 06/22/2024 7:47 PM FOUNDER AND CHIEF TECHNICAL OFFICER [facility] Hematocrit 23.3(L) 35.0 - 47.0 % 06/22/2024 7:47 PM FOUNDER AND CHIEF TECHNICAL OFFICER [facility] MCV 94 78 - 100 fL 06/22/2024 7:47 PM FOUNDER AND CHIEF TECHNICAL OFFICER [facility] MCH 33.1(H) 26.5 - 33.0 pg 06/22/2024 7:47 PM FOUNDER AND CHIEF TECHNICAL OFFICER [facility] MCHC 35.2 31.5 - 36.5 g/dL 06/22/2024 7:47 PM FOUNDER AND CHIEF TECHNICAL OFFICER [facility] RDW 18.6(H) 10.0 - 15.0 % 06/22/2024 7:47 PM FOUNDER AND CHIEF TECHNICAL OFFICER [facility] Platelet Count 470(H) 150 - 450 10e3/uL 06/22/2024 7:47 PM FOUNDER AND CHIEF TECHNICAL OFFICER [facility] % Neutrophils 78 % 06/22/2024 7:47 PM FOUNDER AND CHIEF TECHNICAL OFFICER [facility] % Lymphocytes 16 % 06/22/2024 7:47 PM FOUNDER AND CHIEF TECHNICAL OFFICER [facility] % Monocytes 4 % 06/22/2024 7:47 PM FOUNDER AND CHIEF TECHNICAL OFFICER [facility] % Eosinophils 1 % 06/22/2024 7:47 PM FOUNDER AND CHIEF TECHNICAL OFFICER [facility] % Basophils 1 % 06/22/2024 7:47 PM FOUNDER AND CHIEF TECHNICAL OFFICER [facility] % Immature Granulocytes 1 % 06/22/2024 7:47 PM FOUNDER AND CHIEF TECHNICAL OFFICER [facility] NRBCs per 100 WBC 3(H) <1 /100 025 7:47 PM FOUNDER AND CHIEF TECHNICAL OFFICER [facility] Absolute Neutrophils 10.6(H) 1.6 - 8.3 10e3/uL 06/22/2024 7:47 PM FOUNDER AND CHIEF TECHNICAL OFFICER [facility] Absolute Lymphocytes 2.3 0.8 - 5.3 10e3/uL 06/22/2024 7:47 PM FOUNDER AND CHIEF TECHNICAL OFFICER [facility] Absolute Monocytes 0.5 0.0 - 1.3 10e3/uL 06/22/2024 7:47 PM FOUNDER AND CHIEF TECHNICAL OFFICER [facility] Absolute Eosinophils 0.1 0.0 - 0.7 10e3/uL 06/22/2024 7:47 PM FOUNDER AND CHIEF TECHNICAL OFFICER [facility] Absolute Basophils 0.1 0.0 - 0.2 10e3/uL 06/22/2024 7:47 PM FOUNDER AND CHIEF TECHNICAL OFFICER [facility] Absolute Immature Granulocytes 0.1 <=0.4 10e3/uL 06/22/2024 7:47 PM FOUNDER AND CHIEF TECHNICAL OFFICER [facility] Absolute NRBCs 0.4 10e3/uL 06/22/2024 7:47 PM FOUNDER AND CHIEF TECHNICAL OFFICER [facility] Blood VENOUS LINE / Unknown Venipuncture / Unknown 06/22/2024 7:10 PM FOUNDER AND CHIEF TECHNICAL OFFICER 06/22/2024 7:16 PM FOUNDER AND CHIEF TECHNICAL OFFICER Lynne Varner MD LAB - BLOOD ORDERABLES Fin al Result [facility] Core Lab [address] [facility], [address] * (ABNORMAL) Reticulocyte count (06/22/2024 7:10 PM FOUNDER AND CHIEF TECHNICAL OFFICER) % Reticulocyte 5.3(H) 0.5 - 2.0 % 06/22/2024 7:23 PM FOUNDER AND CHIEF TECHNICAL OFFICER [facility] Absolute Reticulocyte 0.130(H) 0.025 - 0.095 10e6/uL 06/22/2024 7:23 PM FOUNDER AND CHIEF TECHNICAL OFFICER [facility] Blood VENOUS LINE / Unknown Venipuncture / Unknown 06/22/2024 7:10 PM FOUNDER AND CHIEF TECHNICAL OFFICER 06/22/2024 7:16 PM FOUNDER AND CHIEF TECHNICAL OFFICER Lynne Varner MD LAB - BLOOD ORDERABLES Fin al Result [facility] [place] Core Lab [address] [facility], [address] * HCG qualitative Blood (06/22/2024 7:10 PM FOUNDER AND CHIEF TECHNICAL OFFICER) hCG Serum Qualitative Negative Negative JARET 06/22/2024 7:45 PM FOUNDER AND CHIEF TECHNICAL OFFICER [facility] Comment:This test is for scr eening purposes. Results should be interpreted along with the clinical picture. Confirmation testing is available if warranted by ordering [id number], HCG Quantitative . Blood VENOUS LINE / Unknown Venipuncture / Unknown 06/22/2024 7:10 PM FOUNDER AND CHIEF TECHNICAL OFFICER 06/22/2024 7:26 PM FOUNDER AND CHIEF TECHNICAL OFFICER us Lynne Varner MD LAB - BLOOD ORDERABLES Fin al Result [facility] [place] Core Lab [address] [facility], [address] [place] [address] * (ABNORMAL) Comprehensive metabolic panel (06/22/2024 7:10 PM FOUNDER AND CHIEF TECHNICAL OFFICER) Sodium 137 135 - 145 mmol/L 06/22/2024 8:00 PM FOUNDER AND CHIEF TECHNICAL OFFICER [facility] Potassium 4.5 3.4 - 5.3 mmol/L 06/22/2024 8:00 PM FOUNDER AND CHIEF TECHNICAL OFFICER [facility] Carbon Dioxide (CO2) 21(L) 22 - 29 mmol/L 06/22/2024 8:00 PM FOUNDER AND CHIEF TECHNICAL OFFICER [facility] Anion Gap 8 7 - 15 mmol/L 06/22/2024 8:00 PM FOUNDER AND CHIEF TECHNICAL OFFICER [facility] Urea Nitrogen 12.1 6.0 - 20.0 mg/dL 06/22/2024 8:00 PM FOUNDER AND CHIEF TECHNICAL OFFICER [facility] Creatinine 0.71 0.51 - 0.95 mg/dL 06/22/2024 8:00 PM FOUNDER AND CHIEF TECHNICAL OFFICER [facility] GFR Estimate >90 >60 mL/min/1.7 3m2 06/22/2024 8:00 PM FOUNDER AND CHIEF TECHNICAL OFFICER [facility] Comment:eGFR calculated us2020 CKD-EPI equation. Calcium 9.5 8.8 - 10.4 mg/dL 06/22/2024 8:00 PM FOUNDER AND CHIEF TECHNICAL OFFICER [facility] Chloride 108(H) 98 - 107 mmol/L 06/22/2024 8:00 PM FOUNDER AND CHIEF TECHNICAL OFFICER [facility] Glucose 100(H) 70 - 99 mg/dL 06/22/2024 8:00 PM FOUNDER AND CHIEF TECHNICAL OFFICER [facility] Alkaline Phosphatase 119 40 - 150 U/L 06/22/2024 8:00 PM FOUNDER AND CHIEF TECHNICAL OFFICER [facility] AST 62(H) 0 - 45 U/L 06/22/2024 8:00 PM FOUNDER AND CHIEF TECHNICAL OFFICER [facility] ALT 54(H) 0 - 50 U/L 06/22/2024 8:00 PM FOUNDER AND CHIEF TECHNICAL OFFICER [facility] Protein Total 7.8 6.4 - 8.3 g/dL 06/22/2024 8:00 PM FOUNDER AND CHIEF TECHNICAL OFFICER [facility] Albumin 4.1 3.5 - 5.2 g/dL 06/22/2024 8:00 PM FOUNDER AND CHIEF TECHNICAL OFFICER [facility] Bilirubin Total 1.4(H) <=1.2 mg/dL 06/22/2024 8:00 PM FOUNDER AND CHIEF TECHNICAL OFFICER [facility] Blood VENOUS LINE / Unknown Venipuncture / Unknown 06/22/2024 7:10 PM FOUNDER AND CHIEF TECHNICAL OFFICER 06/22/2024 7:16 PM FOUNDER AND CHIEF TECHNICAL OFFICER us Lynne Varner MD LAB - BLOOD ORDERABLES Fin al Result [facility] [place] Core Lab [address] [facility], [address] [place] [id number] documented in this encounter Visit [...] For 1 dose $Given 06/22/2024 7:19 PM FOUNDER AND CHIEF TECHNICAL OFFICER 25 mg heparin lock flush 100 unit/mL injection 100 Units 100 Units, Intravenous, ONCE, On Citlali 06/22/24 at 2150, For 1 dose $Given 06/22/2024 9:53 PM FOUNDER AND CHIEF TECHNICAL OFFICER 100 Units hydromorphone (DILAUDID) injection 2 mg 2 mg, Intravenous, EVERY 1 HOUR PRN, severe pain, Starting on Citlali 06/22/24 at 1735, For 3 doses $Given 06/22/2024 9:33 PM FOUNDER AND CHIEF TECHNICAL OFFICER 2 mg $Given 06/22/2024 8:34 PM FOUNDER AND CHIEF TECHNICAL OFFICER 2 mg $Given 06/22/2024 7:20 PM FOUNDER AND CHIEF TECHNICAL OFFICER 2 mg lactated ringers BOLUS 1,000 mL Intravenous, 1,000 mL, ONCE, at 1,000 mL/hr, Administer over 1 Hours, On Citlali 06/22/24 at 1740, For 1 dose $New Bag 06/22/2024 7:19 PM FOUNDER AND CHIEF TECHNICAL OFFICER 1,000 mLs 1000 mL/hr ondansetron (ZOFRAN) injection 4 mg 4 mg, Intravenous, EVERY 30 MIN PRN, nausea, vomiting, Administer over 2-5 Minutes, Starting on Citlali 06/22/24 at 1735, For 3 doses, May repeat in 30 minutes as needed, up to 3 doses. $Given 06/22/2024 7:19 PM FOUNDER AND CHIEF TECHNICAL OFFICER 4 mg documented in this encounter Active and Recently Administered Medications Times are shown in FOUNDER AND CHIEF TECHNICAL OFFICER. Scheduled Medication Order 06/20/2024 06/21/2024 06/22/2024 diphenhydrAMINE (BENADRYL) capsule 25 mg (COMPLETED) 25 mg, Oral, ONCE, On Citlali 06/22/24 at 1740, For 1 dose 191 ($Given - Provi nas: Gunner Galindo RN) [...] Gunner Galindo RN)2033 ($Given - Provider: Kathy Mann RN)2132 ($Given - Provider: Kathy Mann RN) ondansetron (ZOFRAN) injection 4 mg 4 mg, Intravenous, EVERY 30 MIN PRN, nausea, vomiting, Administer over 2-5 Minutes, Starting on Citlali 06/22/24 at 1735, For 3 doses, May repeat in 30 minutes as needed, up to 3 doses. 1919 ($Given - Provi nas: Gunner Galindo RN) documented in this encounter Care Teams Stone Rigger Relationship Specialty Start Date End Date Veronica Joseph MD [address] [place] [address] PCP - General Family Medicine 06/18/24 Mor Ramsey Medical Student 04/03/24 Case Samuel MD [address] [facility] [address], [address] [place] [address] Assigned Pediatric Specialist Provider 05/18/24 Juhi Benson, RN Specialty Sergeant Of Corrections Hematology & Oncology 05/29/24 documented as of this encounter
--- OUTSIDE RECORDS SUMMARY | 2024-06-30 22:34 | XMS_ITS ---
Author Organization [facility] Address [address] [place] [address] Care Team Providers Care Surgery Manager Name Role Phone Roxy Mor Unavailable Unavailable Case Samuel MD Unavailable [phone] Juhi Benson RN Unavailable Unavailable Veronica Joseph MD Primary Care Provider [phone] Transitional Care Management Status:Closed (Closed) Start date:06/16/2024 Enrollment date:06/16/2024 End date:06/30/2024 Close reason:Goals met Continued Care and Services Coordination
--- OUTSIDE RECORDS SUMMARY | 2024-06-30 22:34 | XMS_ITS | Encounter Summary ---
Author Organization [facility] Address [address] [place] [address] Care Team Providers Care Tow Picker Name Role Phone No Ref-Primary, Physician Primary Care Provider Mor Ramsey Unavailable Unavailable Case Samuel MD Unavailable [phone] Juhi Benson RN Unavailable Unavailable Reason for Visit * Reason Onset Date Comments Refill Request 06/15/2024 Encounter Details Date Type Department Care Team (Late st Contact Info) Description 06/15/[address] [place] [address] Case Samuel MD [address] [place] [address] [address], [address] [place], [place] [id number] Refill Request Social History Tobacco Use Types [...] on file Legal Sex Female 8:25 AM CALENDER OPERATOR Gender Identity Not on file Sexual [...] by whom: Dr. Case Samuel on 06/07/24 GUIDANCE AND CONTROL SYSTEM ENGINEER Reviewed: no access Send to provider: Dr. Samuel and SOFIA ReynagaCC. NDER OPERATOR documented in this encounter Plan of Treatment Upcoming Encounters Date Type Department Care Team (Late st Contact Info) Description 07/10/2024 11:30 AM CDT Oncology Visit [facility] [address] [place] [address] Case Samuel MD [address] [place] [address] [address], [address] [place] [address] documented as of this encounter Goals Goal Patient Goal Type Associated Problems Recent Progress Patient-Stated? Author Pain Management General On track( 025 12:40 PM CALENDER OPERATOR) Yes Juhi Benson, SOFIA Note: Goal [...] crisis documented in this encounter Care Teams Tow Picker Relationship Specialty Start Date End Date No Ref-Primary, Physician PCP - General 03/15/24 06/17/24 Mor Ramsey Medical Student 04/03/24 Case Samuel MD [address] [place] [address] [address], [address] [place] [address] Assigned Pediatric Specialist Provider 05/18/24 Juhi Benson, RN Specialty Commercial Lines Insurance Agent Hematology & Oncology 05/29/24 documented as of this encounter
--- OUTSIDE RECORDS SUMMARY | 2024-06-30 22:34 | XMS_ITS | Encounter Summary ---
Author Organization [facility] Address [address] [place] [address]. [place] [address] Care Team Providers Care Solid Waste Division Supervisor Name Role Phone Roxy Mor Unavailable Unavailable Case Samuel MD Unavailable [phone] Juhi Benson RN Unavailable Unavailable Veronica Joseph MD Primary Care Provider [phone] Encounter Details Date Type Department Care Team [...] in an overnight snf, or couch-surfing.) Yes 06/20/2024 Are you worried [...] on file Legal Sex Female 8:25 AM MOONER Gender Identity Not on file Sexual Orientation Not on file documented as of this encounter Plan of Treatment Upcoming Encounters Date Type Department Care Team (Late st Contact Info) Description 07/10/2024 11:30 AM CDT Oncology Visit [facility] [address] [place] [address] Case Samuel MD [address] [place] [address] [address], [address] [place], [place] [address] documented as of this encounter Goals Goal Patient Goal Type Associated Problems Recent Progress Patient-Stated? Author Pain Management General On track( 025 12:40 PM MOONER) Yes Juhi Benson RN Note: Goal Statement: [...] on filedocumented in this encounter Care Teams Solid Waste Division Supervisor Relationship Specialty Start Date End Date Veronica Joseph MD [address] [place] [address] PCP - General Family Medicine 06/18/24 Mor Ramsey Medical Student 04/03/24 Case Samuel MD [address] [place] [address] [address], [address] [place] [address] Assigned Pediatric Specialist Provider 05/18/24 Juhi Benson, RN Specialty Requirements Manager Hematology & Oncology 05/29/24 documented as of this encounter
--- OUTSIDE RECORDS SUMMARY | 2024-06-30 22:34 | XMS_ITS | Encounter Summary ---
Author Organization [facility] Address [address] [place] [address]. [place] [address] Care Team Providers Care Oral And Maxillofacial Surgery Resident Name Role Phone No Ref-Primary, Physician Primary Care Provider Mor Ramsey Unavailable Unavailable Case Samuel MD Unavailable [phone] Juhi Benson RN Unavailable Unavailable Encounter Details [...] on file Legal Sex Female 8:25 AM ADVANCED MANUFACTURING CONSULTANT Gender Identity Not on file Sexual Orientation Not on file documented as of this encounter Plan of Treatment Upcoming Encounters Date Type Department Care Team (Late st Contact Info) Description 07/10/2024 11:30 AM CDT Oncology Visit [facility] [address] [place] [address] Case Samuel MD [address] [place] [address] [address], [address] [place] [address] documented as of this encounter Goals Goal Patient Goal Type Associated Problems Recent Progress Patient-Stated? Author Pain Management General On track( 025 12:40 PM ADVANCED MANUFACTURING CONSULTANT) Yes Juhi Benson, RN Note: Goal [...] on filedocumented in this encounter Care Teams Oral And Maxillofacial Surgery Resident Relationship Specialty Start Date End Date No Ref-Primary, Physician PCP - General 03/15/24 06/17/24 Mor Ramsey Medical Student 04/03/24 Case Samuel MD [address] [place] [address] [address], [address] [place] [address] Assigned Pediatric Specialist Provider 05/18/24 Juhi Benson, RN Specialty Crayon Sawyer Hematology & Oncology 05/29/24 documented as of this encounter
--- OUTSIDE RECORDS SUMMARY | 2024-06-30 22:35 | XMS_ITS | Encounter Summary ---
Author Organization [facility] Address [address] [place] [address]. [place] [address] Care Team Providers Care Theoretical Physicist Name Role Phone Roxy Mor Unavailable Unavailable Case Samuel MD Unavailable [phone] Juhi Benson RN Unavailable Unavailable Veronica Joseph MD Primary Care Provider [phone] Encounter Details Date Type Department Care Team [...] on file Legal Sex Female 8:[address] Gender Identity Not on file Sexual Orientation Not on file documented as of this encounter Plan of Treatment Upcoming Encounters Date Type Department Care Team (Late st Contact Info) Description 07/10/2024 11:30 AM CDT Oncology Visit [facility] [address] [place] [address] Case Samuel MD [address] [place] [address] [address], [address] [place], [place] [phone] documented as of this encounter Goals Goal Patient Goal Type Associated Problems Recent Progress Patient-Stated? Author Pain Management General On track( 025 12:[address] JUDGE) Yes Juhi Benson RN Note: Goal Statement: [...] on filedocumented in this encounter Care Teams Theoretical Physicist Relationship Specialty Start Date End Date Veronica Joseph MD [address] [place] [address] PCP - General Family Medicine 06/18/24 Mor Ramsey Medical Student 04/03/24 Case Samuel MD [address] [place] [address] [address], [address] [place] [address] Assigned Pediatric Specialist Provider 05/18/24 Juhi Benson, RN Specialty Ship Wirer Hematology & Oncology 05/29/24 documented as of this encounter
--- OUTSIDE RECORDS SUMMARY | 2024-06-30 22:35 | XMS_ITS | Encounter Summary ---
Author Organization [place] Address [address] [place] [address] Care Team Providers Care Toppiece Cutter Name Role Phone R[employer] Unavailable Unavailable Case Samuel MD Unavailable [phone] Juhi Benson RN Unavailable Unavailable Veronica Joseph MD Primary Care Provider [phone] Reason for Visit * Reason Comments Sickle Cell Pain Crisis Pt reports pain in her back and b/l lower extremities. Encounter Details Date Type Department Care Team (Late st Contact Info) Description 06/24/2024 9:28 AM LEAD APPLIER - 06/24/2024 1:05 PM LEAD APPLIER Emergency [facility] Emergency Department [address] [place] [phone] Richar Mahajan MD [address] [place] [phone] Sickle cell disease with crisis (H) Discharge [...] in an overnight alf, or couch-surfing.) Yes 06/20/2024 Are you worried [...] on file Legal Sex Female 8:25 AM LEAD APPLIER Gender Identity Not on file Sexual Orientation Not on file documented as of this encounter Last Filed Vital Signs Vital Sign Reading Time Taken Comments Blood Pressure 111/67 06/24/2024 11:56 AM LEAD APPLIER Pulse 101 06/24/2024 12:11 PM LEAD APPLIER Temperature 36.9 C (98.4 F) 06/24/2024 9:26 AM LEAD APPLIER Respiratory Rate 16 06/24/2024 9:26 AM LEAD APPLIER Oxygen Saturation 100% 06/24/2024 12:11 PM LEAD APPLIER Inhaled Oxygen Concentration - - Weight 52.2 kg (115 lb) 06/24/2024 9:26 AM LEAD APPLIER Height 154.9 cm (5' 1) 06/24/2024 9:26 AM LEAD APPLIER Body Mass Index 21.73 06/24/2024 9:26 AM LEAD APPLIER documented in this encounter Discharge Instructions * Discharge Instructions* Richar Mahajan MD - 06/24/2024 12:57 PM LEAD APPLIER Home. Continue home care. Follow up with [...] Negative Ketones Urine Negative Negative mg/dL Specific [place] Urine 1.009 1.003 - 1.035 Blood Urine [...] Status --------- ------ CBC with platelets and d...[[id number]] Abnormal Final result Please view results for these tests on the individual orders. APPLIER * Attachments The following attachments cannot be sent through Care Everywhere. * Sickle Cell Crisis (Armenian) documented in this encounter Medications at Time [...] 05/01/2024 naloxone (NARCAN) 4 MG/0.1ML nasal spray [place] 1 spray (4 mg) into one nostril [...] extremities. Triage Assessment (Adult) Row Name 06/24/24 7677 Triage Assessment Airway WDL WDL Respiratory WDL Respiratory WDL WDL Skin Circulation/Temperature WDL Skin Circulation/Temperature WDL WDL Cardiac WDL Cardiac WDL WDL Peripheral/Neurovascular WDL Peripheral Neurovascular WDL WDL Cognitive/Neuro/Behavioral WDL Cognitive/Neuro/Behavioral WDL WDL APPLIER * Richar Mahajan MD - 06/24/2024 9:16 AM CST Images from the original note were not included. [facility] ([facility]) 06/24/24 ED PROVIDER NOTE History Chief Complaint [...] Course, Procedures, & Data Records reviewed in [facility] as noted refer to HPI also care [...] Negative Ketones Urine Negative Negative mg/dL Specific [place] Urine 1.009 1.003 - 1.035 Blood Urine [...] Status --------- ------ CBC with platelets and d...[[id number]] Abnormal Final result Please view results for [...] Bilirubin Urine Negative Ketones Urine Negative Specific [place] Urine 1.009 Blood Urine Negative pH Urine [...] Haines, am serving as a trained medical services manager to document services personally performed by Richar Mahajan MD based on the provider's statements to me on June 24, 2024. This document has been checked and approved by the attending provider. I, Richar Mahajan MD, was physically present and have reviewed and verified the accuracy of thisnote documented by Thelma Haines, medical services manager. Richar Mahajan MD [facility]MENT 06/24/2024 This note was created at least in part by the use of [employer] voice dictation system. Inadvertent typographical errors may still exist. Richar Mahajan MD. Patient evaluated in the emergency department during the COVID-19 pandemic period. Careful attention to patients safety was addressed throughout the evaluation. Evaluation and treatment management was initiated with disposition made efficiently and appropriate as possible to minimize any risk of potential exposure to patient during this evaluation. Richar Mahajan MD 06/24/242108 APPLIER documented in this encounter Plan of Treatment Upcoming Encounters Date Type Department Care Team (Late st Contact Info) Description 07/10/2024 11:30 AM CDT Oncology Visit [facility] [address] [place] [phone] Case Samuel MD [address] [facility] [place] [address], [address] [place], [place] [phone] documented as of this encounter Goals Goal Patient Goal Type Associated Problems Recent Progress Patient-Stated? Author Pain Management General On track( 025 12:40 PM LEAD APPLIER) Yes Juhi Benson, RN Note: Goal Statement: [...] REFLEX TO CULTURE STAT 06/24/2024 10:15 AM LEAD APPLIER CBC WITH PLATELETS AND DIFFERENTIAL STAT 06/24/2024 10:11 AM LEAD APPLIER CBC WITH PLATELETS & DIFFERENTIAL STAT 06/24/2024 10:11 AM LEAD APPLIER RETICULOCYTE COUNT STAT 06/24/2024 10 :11 AM LEAD APPLIER INR STAT 06/24/2024 10:11 AM LEAD APPLIER PARTIAL THROMBOPLASTIN TIME STAT 06/24/2024 10:11 AM LEAD APPLIER MAGNESIUM STAT 06/24/2024 10:11 AM LEAD APPLIER HCG QUALITATIVE STAT 06/24/2024 10:11 AM LEAD APPLIER COMPREHENSIVE METABOLIC PANEL STAT 06/24/2024 10:11 AM LEAD APPLIER documented in this encounter Results * (ABNORMAL) UA with Microscopic reflex to Culture (06/24/2024 10:15 AM LEAD APPLIER) Color Urine Light Yellow Colorless, Straw, Light Yellow, Yellow 06/24/2024 10:25 AM LEAD APPLIER [facility] Appearance Urine Clear Clear 06/25/19 10:25 AM LEAD APPLIER [facility] Glucose Urine Negative Negative mg/dL 06/24/2024 10:25 AM LEAD APPLIER [facility] Bilirubin Urine Negative Negative 10:25 AM LEAD APPLIER [facility] Ketones Urine Negative Negative mg/dL 06/24/2024 10:25 AM LEAD APPLIER [facility] Specific [place] Urine 1.009 1.003 - 1.035 06/24/2024 10:25 AM LEAD APPLIER [facility] Blood Urine Negative Negative 06/24/2024 10:25 AM LEAD APPLIER [facility] pH Urine 7.5(H) 5.0 - 7.0 06/24/2024 10:25 AM LEAD APPLIER [facility] Protein Albumin Urine Negative Negative mg/dL 06/24/2024 10:25 AM LEAD APPLIER [facility] Urobilinogen Urine Normal Normal, 2.0 mg/dL 06/24/2024 10:25 AM LEAD APPLIER [facility] Nitrite Urine Negative Negative 06/24/2024 10:25 AM LEAD APPLIER [facility] Leukocyte Esterase Urine Negative Negative 06/24/2024 10:25 AM LEAD APPLIER [facility] RBC Urine <1 <=2 /HPF 06/24/2024 10:25 AM LEAD APPLIER [facility] WBC Urine <1 <=5 /HPF 06/24/2024 10:25 AM LEAD APPLIER [facility] Squamous Epithelials Urine 11(H) <=1 /HPF 06/24/2024 10:25 AM LEAD APPLIER [facility] Hyaline Casts Urine 1 <=2 /LPF 06/24/2024 10:25 AM LEAD APPLIER [facility] Urine MID-STREAM URINE SPECIMEN / Unknown Non-blood Collection / Unknown 06/24/2024 10:15 AM LEAD APPLIER 06/24/2024 10:20 AM LEAD APPLIER Narrative [facility] - 06/24/2024 10:25 AM LEAD APPLIER Urine Culture not indicated us Richar Mahajan MD LAB - URINE ORDERABLES Liss l Result [facility] [address] [facility], [address] [place] [phone] * (ABNORMAL) CBC with platelets and differential (06/24/2024 10:11 AM LEAD APPLIER) WBC Count 7.8 4.0 - 11.0 10e3/uL 06/24/2024 10:28 AM LEAD APPLIER [facility] RBC Count 2.49(L) 3.80 - 5.20 10e6/uL 06/24/2024 10:28 AM LEAD APPLIER [facility] Hemoglobin 7.9(L) 11.7 - 15.7 g/dL 06/24/2024 10:28 AM LEAD APPLIER [facility] Hematocrit 24.8(L) 35.0 - 47.0 % 06/24/2024 10:28 AM LEAD APPLIER [facility] MCV 100 78 - 100 fL 06/24/2024 10:28 AM LEAD APPLIER [facility] MCH 31.7 26.5 - 33.0 pg 06/24/2024 10:28 AM LEAD APPLIER [facility] MCHC 31.9 31.5 - 36.5 g/dL 06/24/2024 10:28 AM LEAD APPLIER [facility] RDW 19.0(H) 10.0 - 15.0 % 06/24/2024 10:28 AM LEAD APPLIER [facility] Platelet Count 482(H) 150 - 450 10e3/uL 06/24/2024 10:28 AM LEAD APPLIER [facility] % Neutrophils 61 % 06/24/2024 10:28 AM LEAD APPLIER [facility] % Lymphocytes 26 % 06/24/2024 10:28 AM LEAD APPLIER [facility] % Monocytes 9 % 06/24/2024 10:28 AM LEAD APPLIER [facility] % Eosinophils 1 % 06/24/2024 10:28 AM LEAD APPLIER [facility] % Basophils 2 % 06/24/2024 10:28 AM LEAD APPLIER [facility] % Immature Granulocytes 1 % 06/24/2024 10:28 AM LEAD APPLIER [facility] NRBCs per 100 WBC 5(H) <1 /100 025 10:28 AM LEAD APPLIER [facility] Absolute Neutrophils 4.8 1.6 - 8.3 10e3/uL 06/24/2024 10:28 AM LEAD APPLIER [facility] Absolute Lymphocytes 2.1 0.8 - 5.3 10e3/uL 06/24/2024 10:28 AM LEAD APPLIER [facility] Absolute Monocytes 0.7 0.0 - 1.3 10e3/uL 06/24/2024 10:28 AM LEAD APPLIER [facility] Absolute Eosinophils 0.1 0.0 - 0.7 10e3/uL 06/24/2024 10:28 AM LEAD APPLIER [facility] Absolute Basophils 0.1 0.0 - 0.2 10e3/uL 06/24/2024 10:28 AM LEAD APPLIER [facility] Absolute Immature Granulocytes 0.1 <=0.4 10e3/uL 06/24/2024 10:28 AM LEAD APPLIER [facility] Absolute NRBCs 0.4 10e3/uL 06/24/2024 10:28 AM LEAD APPLIER [facility] Blood BLOOD SPECIMEN / Unknown Venipuncture / Unknown 06/24/2024 10:11 AM LEAD APPLIER 06/24/2024 10:22 AM LEAD APPLIER us Richar Mahajan MD LAB - BLOOD ORDERABLES Liss l Result [facility] [address] [facility], [address] [place] [address], [facility] * (ABNORMAL) Reticulocyte count (06/24/2024 10:11 AM LEAD APPLIER) [facility] % Reticulocyte 11.2(H) 0.5 - 2.0 % 06/24/2024 10:28 AM LEAD APPLIER [facility] Absolute Reticulocyte 0.280(H) 0.025 - 0.095 10e6/uL 06/24/2024 10:28 AM LEAD APPLIER [facility] Blood BLOOD SPECIMEN / Unknown Venipuncture / Unknown 06/24/2024 10:11 AM LEAD APPLIER 06/24/2024 10:22 AM LEAD APPLIER Richar Mahajan MD LAB - BLOOD ORDERABLES Liss l Result [facility] [address] [facility], [address] [phone] * HCG qualitative Blood (06/24/2024 10:11 AM LEAD APPLIER) hCG Serum Qualitative Negative Negative JARET 06/24/2024 10:33 AM LEAD APPLIER [facility] Comment:This test is for scr eening purposes. Results should be interpreted along with the clinical picture. Confirmation testing is available if warranted by ordering [id number], HCG Quantitative . Blood BLOOD SPECIMEN / Unknown Venipuncture / Unknown 06/24/2024 10:11 AM LEAD APPLIER 06/24/2024 10:20 AM LEAD APPLIER Richar Mahajan MD LAB - BLOOD ORDERABLES Liss l Result Performing Organization Address [facility] Co de Phone Number [facility] [address] [facility], [address] [phone] [place] [address] * Magnesium (06/24/2024 10:11 AM LEAD APPLIER) Pathologist [facility] Magnesium 2.1 1.7 - 2.3 mg/dL 06/24/2024 10:51 AM LEAD APPLIER [facility] Blood BLOOD SPECIMEN / Unknown Venipuncture / Unknown 06/24/2024 10:11 AM LEAD APPLIER 06/24/2024 10:21 AM LEAD APPLIER Richar Mahajan MD LAB - BLOOD ORDERABLES Liss l Result [facility] [address] [facility], [address] [place] [address], [facility] * (ABNORMAL) Comprehensive metabolic panel (06/24/2024 10:11 AM LEAD APPLIER) Sodium 138 135 - 145 mmol/L 06/24/2024 10:51 AM LEAD APPLIER [facility] Potassium 4.3 3.4 - 5.3 mmol/L 06/24/2024 10:51 AM LEAD APPLIER [facility] Carbon Dioxide (CO2) 20(L) 22 - 29 mmol/L 06/24/2024 10:51 AM LEAD APPLIER [facility] Anion Gap 10 7 - 15 mmol/L 06/24/2024 10:51 AM LEAD APPLIER [facility] Urea Nitrogen 9.9 6.0 - 20.0 mg/dL 06/24/2024 10:51 AM LEAD APPLIER [facility] Creatinine 0.62 0.51 - 0.95 mg/dL 06/24/2024 10:51 AM LEAD APPLIER [facility] GFR Estimate >90 >60 mL/min/1.7 3m2 06/24/2024 10:51 AM LEAD APPLIER [facility] Comment:eGFR calculated us2020 CKD-EPI equation. Calcium 8.7(L) 8.8 - 10.4 mg/dL 06/24/2024 10:51 AM LEAD APPLIER [facility] Chloride 108(H) 98 - 107 mmol/L 06/24/2024 10:51 AM LEAD APPLIER [facility] Glucose 98 70 - 99 mg/dL 06/24/2024 10:51 AM LEAD APPLIER [facility] Alkaline Phosphatase 119 40 - 150 U/L 06/24/2024 10:51 AM LEAD APPLIER [facility] AST 57(H) 0 - 45 U/L 06/24/2024 10:51 AM LEAD APPLIER [facility] ALT 53(H) 0 - 50 U/L 06/24/2024 10:51 AM LEAD APPLIER [facility] Protein Total 7.4 6.4 - 8.3 g/dL 06/24/2024 10:51 AM LEAD APPLIER [facility] Albumin 4.0 3.5 - 5.2 g/dL 06/24/2024 10:51 AM LEAD APPLIER [facility] Bilirubin Total 1.1 <=1.2 mg/dL 06/24/2024 10:51 AM LEAD APPLIER [facility] Blood BLOOD SPECIMEN / Unknown Venipuncture / Unknown 06/24/2024 10:11 AM LEAD APPLIER 06/24/2024 10:21 AM LEAD APPLIER us Richar Mahajan MD LAB - BLOOD ORDERABLES Liss l Result LABORATORY [facility] [address] [facility], [address] * (ABNORMAL) INR (06/24/2024 10:11 AM LEAD APPLIER) INR 1.45(H) 0.85 - 1.15 06/24/2024 10:54 AM LEAD APPLIER [facility] Blood BLOOD SPECIMEN / Unknown Venipuncture / Unknown 06/24/2024 10:11 AM LEAD APPLIER 06/24/2024 10:21 AM LEAD APPLIER us Richar Mahajan MD LAB - BLOOD ORDERABLES Liss l Result Performing Organization Address City/[facility]/ZIP Co de Phone Number [facility] [address] [facility], [address] * Partial thromboplastin time (06/24/2024 10:11 AM LEAD APPLIER) aPTT 32 22 - 38 Seconds 06/24/2024 10:55 AM LEAD APPLIER [facility] Blood BLOOD SPECIMEN / Unknown Venipuncture / Unknown 06/24/2024 10:11 AM LEAD APPLIER 06/24/2024 10:21 AM LEAD APPLIER us Richar Mahajan MD LAB - BLOOD ORDERABLES Liss l Result [facility]ATORY [facility] [address] [facility], [address] documented in this encounter Visit Diagnoses Diagnosis Sickle cell disease with crisis (H) Hb-SS disease with crisis documented in this encounter Administered Medications Inactive Administered Medications - up to 3 most recent administrations Medication Order MAR Action Action Date Dose Rate Site diphenhydrAMINE (BENADRYL) capsule 50 mg 50 mg, Oral, ONCE, On 06/24/24 at 0935, For 1 dose $Given 06/24/2024 10:20 AM LEAD APPLIER 50 mg hydromorphone (DILAUDID) injection 2 mg 2 mg, Intravenous, EVERY 1 HOUR PRN, severe pain, Starting on 06/24/24 at 0933, For 3 doses $Given 06/24/2024 12:41 PM LEAD APPLIER 2 mg $Given 06/24/2024 11:21 AM LEAD APPLIER 2 mg $Given 06/24/2024 10:19 AM LEAD APPLIER 2 mg lactated ringers BOLUS 1,000 mL Intravenous, 1,000 mL, ONCE, at 500 mL/hr, Administer over 2 Hours, On 06/24/24 at 0935, For 1 dose $New Bag 06/24/2024 10:20 AM LEAD APPLIER 1,000 mLs 500 mL/hr lidocaine (LMX4) cream [...] For 1 dose $Given 06/24/2024 10:19 AM LEAD APPLIER 8 mg sodium chloride (PF) 0.9% PF flush 3 mL 3 mL, Intracatheter, EVERY 8 HOURS, First dose on 06/24/24 at 0935, to lock peripheral IV dormant line $Given 06/24/2024 10:14 AM LEAD APPLIER 3 mLs sodium chloride (PF) 0.9% PF flush 3 mL 3 mL, Intracatheter, EVERY 1 MIN PRN, line flush, other, to ensure patency or to lock dormant line, Starting on 06/24/24 at 0930 documented in this encounter Active and Recently Administered Medications Times are shown in LEAD APPLIER. Scheduled Medication Order 06/22/2024 06/23/2024 06/24/2024 diphenhydrAMINE [...] 0930 documented in this encounter Care Teams Toppiece Cutter Relationship Specialty Start Date End Date Veronica Joseph MD [address] [place] [address] PCP - General Family Medicine 06/18/24 Mor Ramsey Medical Student 04/03/24 Case Samuel MD [address] [place] [address], [address] [place] [address] Assigned Pediatric Specialist Provider 05/18/24 Juhi Benson, SOFIA Specialty Video Conference Specialist Hematology & Oncology 05/29/24 documented as of this encounter
--- OUTSIDE RECORDS SUMMARY | 2024-06-30 22:35 | XMS_ITS | Clinical Summary ---
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 30 tablet 05/01/19 25 Active FLUoxetine (PROZAC) 10 MG capsuleIndication s:Severe episode of recurrent major depressive disorder, without psychotic features (H) Take 1 capsule (10 mg) by mouth daily. 40 capsule 1 05/29/19 25 Active naloxone (NARCAN) 4 MG/0.1ML nasal spray [place] 1 spray (4 mg) into one nostril alternating nostrils as needed for opioid reversal (for opiate overdose if not breathing and unconscious. have your family member watch video on how to use/read information sheet). every 2-3 minutes until assistance arrives 2 each 06/06/19 25 Active ibuprofen (ADVIL/MOTRIN) 200 MG tablet Take [...] response to initial dose is inadequate. Active apixaban ANTICOAGULANT (ELIQUIS) 5 MG tabletIndications :DVT-PE Treatment Take 2 tablets (10 mg) by mouth 2 times daily for 6 days, THEN 1 tablet (5 mg) 2 times daily. 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 40 tablet 06/07/19 25 025 Discontin ued(Reord er (No AVS)) cefpodoxime (VANTIN) 200 MG tabletIndications :Pneumonia of right lower lobe due to infectious organism Take 1 tablet (200 mg) by mouth 2 times daily for 3 days. 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 Emergency Department [address] [place] [phone] Jayden Adhikari MD Pal, Suman, MD Diehl, Matthew, MD Acute pulmonary embolism without acute cor pulmonale, unspecified pulmonary embolism type (H); Sickle cell pain crisis (H) Discharge Disposition: Home or Self Care 06/26/2024 Travel 06/25/2024 9:50 PM [employer] - 06/26/2024 1:11 AM [facility] Emergency [facility] Emergency Department [address] [place] [phone] Polly Naylor MD Tschohl, Melissa Ann, MD Sickle cell disease with crisis (H); Chest pain, unspecified type Discharge Disposition: Home or Self Care 06/25/2024 Travel 06/24/2024 9:28 AM [employer] - 06/24/2024 1:05 PM [employer] Emergency [facility] Emergency Department [address] [place] [address] Richar Mahajan MD Sickle cell disease with crisis (H) Discharge Disposition: Home or Self Care 06/24/2024 Travel 06/23/2024 6:03 PM [employer] - 06/23/2024 9:47 PM [employer] Emergency [facility] Emergency Department [address] [place] [phone] Dayna Crane MD Sickle cell disease with crisis (H) Discharge Disposition: Home or Self Care 06/23/2024 Travel 06/22/2024 5:23 PM [employer] - 06/22/2024 10:02 PM [employer] Emergency [facility] Emergency Department [address] [place] [phone] Lynne Varner MD Sickle cell anemia with crisis (H) Discharge Disposition: Home or Self Care 06/22/2024 Travel 06/16/2024 4:46 PM [employer] - 06/20/2024 11:00 AM [employer] Hospital Encounter [facility] 7C Med Surg [address] [place] [address] Abimael Schofield MD Pal, Suman, MD Duffy, Briar, MD Sickle cell pain crisis (H) Discharge Disposition: Home or Self Care 06/16/2024 Travel 06/15/2024 Refill [facility] [address] [phone] Case Samuel MD Refill Request 06/12/2024 6:38 PM [employer] - 06/15/2024 10:48 AM [employer] Hospital Encounter 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 [id number] [place] [address] [place] [phone] Case Samuel MD Sickle cell pain crisis (H) (Primary Dx) 06/09/2024 Travel 06/07/2024 1:30 PM [employer] Infusion Therapy Visit [facility] [address] [phone] Case Samuel MD Fever (Primary Dx); Sickle cell pain crisis (H) 06/07/2024 10:00 AM [employer] - 06/07/2024 10:45 AM [employer] Emergency [facility] Emergency Room [address] [place] [phone] Bernabe Farley MD Chest pain, unspecified type; Fever, unspecified fever cause; Left against medical advice Discharge Disposition: Home or Self Care 06/07/2024 Travel 06/06/2024 9:41 AM [employer] - 06/06/2024 1:29 PM [employer] Emergency [facility] Room [address] [place] [phone] Marilia Summers MD Sickle cell pain crisis (H) Discharge Disposition: Home or Self Care 06/05/2024 11:41 AM [employer] - 06/05/2024 3:28 PM [employer] Emergency [facility] [address] [place] [phone] Stiven Madsen MD Palm, Steven J, MD Sickle cell pain crisis (H) Discharge Disposition: Home or Self Care 06/05/2024 Travel 06/05/2024 [facility] Refill [facility] Cancer [address] [phone] Case Samuel MD Refill Request 06/03/2024 3:22 PM [employer] - 06/03/2024 5:30 PM [employer] Emergency [facility] Emergency Room [address] [place] [phone] Jennifer Bell MD Sickle cell pain crisis (H) Discharge Disposition: Home or Self Care 06/03/2024 Travel 06/01/2024 11:41 PM [employer] - 06/02/2024 2:35 AM [employer] Emergency [facility] Emergency Room [address] [place] [phone] Noel Pinzon MD Sickle cell pain crisis (H) Discharge Disposition: Home or Self Care 06/01/2024 Travel 05/31/2024 9:56 PM [employer] - 06/01/2024 12:46 AM [employer] Emergency [facility] Emergency Room [address] [place] [phone] Carley Riggins MD Sickle cell pain crisis (H) Discharge Disposition: Home or Self Care 05/31/2024 Travel 05/30/2024 8:00 AM [employer] Infusion Therapy Visit [facility] [address] [phone] Case Samuel MD 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); History of transfusion; Sickle cell pain crisis (H) 05/29/2024 11:30 AM [employer] Oncology Visit [facility] Cancer [address] [phone] Case Samuel MD Severe episode of recurrent major depressive disorder, 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); History of transfusion; Sickle cell pain crisis (H); 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) 05/29/2024 [facility] [address] [place] [phone] Juhi Benson RN Sickle cell pain crisis (H) (Primary Dx); 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) 05/29/2024 Travel 05/28/2024 11:56 PM [employer] - 05/29/2024 3:54 AM [facility] Emergency Room [address] [place] [phone] Lenin Smith MD Sickle cell disease with crisis (H) Discharge Disposition: Home or Self Care 05/28/2024 Travel 05/27/2024 11:58 AM [facility] - 05/27/2024 6:07 PM [facility] Emergency Room [address] [place] [phone] Blas Mcclellan MD Ohl, Marly Leija, DO Sickle cell disease with crisis (H) Discharge Disposition: Home or Self Care 05/27/2024 Travel 05/25/2024 10:53 AM [employer] - 05/25/2024 4:00 PM [facility] Interventional Radiology [address] [place] [phone] Jaswinder Cooper MD 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) Discharge Disposition: Home or Self Care 05/23/2024 9:03 PM [employer] - 05/23/2024 11:37 PM [facility] Emergency Room [address] [place] [phone] Marilia Summers MD Sickle cell pain crisis (H); Leukocytosis, unspecified type; Left-sided chest wall pain Discharge Disposition: Home or Self Care 05/23/2024 Travel 05/22/2024 3:27 PM [employer] - 05/22/2024 6:55 PM [facility] Emergency Room [address] [place] [phone] Bernabe Farley MD Sickle cell pain crisis (H) Discharge Disposition: Home or Self Care 05/22/2024 My[facility] Refill [facility] [address] [place] [phone] Case Samuel MD Refill Request 05/22/2024 Travel 05/22/2024 MyC Medical Advice [facility] Interventional Radiology [address] [place] [phone] Yadi Mahan RN 05/20/2024 7:30 AM [employer] - 05/20/2024 11:15 AM [facility] Emergency [facility] Room [address] [place] [phone] Stiven Madsen MD Sickle cell pain crisis (H) Discharge Disposition: Home or Self Care 05/20/2024 Travel 05/19/2024 2:10 AM [employer] - 05/19/2024 6:06 AM [employer] Emergency [facility] Emergency Room [address] [place] [phone] Marilia Summers MD Sickle cell disease with crisis (H) Discharge Disposition: Home or Self Care 05/19/2024 Travel 05/16/2024 9:41 PM [employer] - 05/17/2024 12:53 AM [employer] Emergency [facility] Room [address] [place] [phone] Guille Davis DO Sickle cell pain crisis (H) Discharge Disposition: Home or Self Care 05/16/2024 Travel 05/14/2024 10:07 PM [employer] - 05/15/2024 12:14 AM [facility] Emergency [facility] Room [address] [place] [phone] Marguerite Ponce PA-C Sickle cell pain crisis (H) Discharge Disposition: Home or Self Care 05/14/2024 Travel 05/13/2024 3:56 PM [employer] - 05/13/2024 7:56 PM [employer] Emergency [facility] Room [address] [place] [phone] Shaheen Unger MD Sickle cell pain crisis (H) Discharge Disposition: Home or Self Care 05/13/2024 Travel 05/08/2024 3:10 PM [employer] - 05/08/2024 7:54 PM [employer] Emergency [facility] Room [address] [place] [phone] Polly Alcaraz MD Sickle cell pain crisis (H) Discharge Disposition: Home or Self Care 05/08/2024 Travel 05/08/2024 MyC Refill [facility] [address] [place] [phone] Case Samuel MD Refill Request 05/06/2024 6:34 PM [employer] - 05/06/2024 10:33 PM [employer] Emergency [facility] Room [address] [place] [phone] Noel Pinzon MD Sickle cell pain crisis (H) Discharge Disposition: Home or Self Care 05/06/2024 Travel 05/05/2024 11:10 AM [employer] - 05/05/2024 2:25 PM [employer] Emergency [facility] [address] [place] [phone] Star Gifford MD Sickle cell pain crisis (H) Discharge Disposition: Home or Self Care 05/05/2024 Travel 05/02/2024 8:23 AM [employer] - 05/02/2024 8:54 AM [facility] Emergency 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); Gallstones; Avascular necrosis of bone of left hip (H); 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, with sickle cell retinopathy, unspecified laterality, unspecified whether proliferative (H); Sickle cell pain crisis (H) 05/01/2024 Orders Only [facility] [address] [place] [phone] Juhi Benson RN 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) 05/01/2024 Travel 04/28/2024 12:41 AM [employer] - 04/28/2024 3:59 AM [employer] Emergency [facility] Room [address] [place] [phone] Sandy Joya MD Sickle cell pain crisis (H) Discharge Disposition: Home or Self Care 04/28/2024 Travel 04/26/2024 11:53 PM [employer] - 04/27/2024 2:14 AM [employer] Emergency [facility] Room [address] [place] [phone] Sandy Joya MD Sickle cell pain crisis (H) Discharge Disposition: Home or Self Care 04/26/2024 Travel 04/19/2024 1:48 AM [employer] - 04/19/2024 4:28 AM [employer] Emergency [facility] Room [address] [place] [phone] Juan Rodriguez MD Sickle cell pain crisis (H); Left hip pain; Nondisplaced articular fracture of head of left femur, initial encounter for closed fracture (H) Discharge Disposition: Home or Self Care 04/19/2024 Travel 04/08/2024 9:38 PM [employer] - 04/10/2024 10:16 AM [employer] Hospital Encounter [facility] [address] [place] [phone] Iliana Weber MD Huynh, Ryan K, MD Raddawi, Kenan, MD Sickle cell pain crisis (H) Discharge Disposition: Home or Self Care 04/08/2024 Travel 04/05/2024 11:32 PM [employer] - 04/06/2024 3:04 AM [employer] Emergency [facility] Emergency Room [address] [place] [phone] Guille Davis DO Sickle cell pain crisis (H); Pulmonary nodules Discharge Disposition: Home or Self Care 04/05/2024 Travel from Last 3 Months Immunizations Name [...] on file Legal Sex Female 8:25 AM [employer] Gender Identity Not on file Sexual Orientation Not on file Last Filed Vital Signs Vital Sign Reading Time Taken Comments Blood Pressure 97/51 06/29/2024 9:46 AM [employer] Pulse 62 06/29/2024 9:46 AM [employer] Temperature 36.8 C (98.2 F) 06/29/2024 9:46 AM [employer] Respiratory Rate 18 06/29/2024 9:46 AM [employer] Oxygen Saturation 95% 06/29/2024 9:46 AM [employer] Inhaled Oxygen Concentration - - Weight 51 kg (112 lb 6.4 oz) 06/25/2024 9:46 PM [employer] Height 154.9 cm (5' 1) 06/24/2024 9:26 AM [employer] Body Mass Index 21.24 06/24/2024 9:26 AM [employer] Plan of Treatment Upcoming Encounters Date Type Department Care Team (Late st Contact Info) Description 07/10/2024 11:30 AM CDT Oncology Visit [facility] [address] [place] [phone] Case Samuel MD [address] [place] [address], [address] [place] [address] Health Maintenance Due Date Last Done Comments [...] Management General On track( 025 12:40 PM [employer]) Yes Juhi Benson, RN Note: Goal Statement: [...] medication remaining. Medical Devices Implanted Type Area Web Site Designer Device Identifier Shelf Expiration Date Model / Serial / Lot Bard 9.6 Powerflow Apheresis Iv Port-05/25/2024 Implanted:Qty: 1 on 05/25/2024 by Myron Michel MD Port Right: Chest Wall [employer] 08/23/2024 [id number] / / [id number] Description:Right chest Wall Apheresis Port 9.6FR (Power) 6frt Smartport-05/25 Implanted:Qty: 1 on 05/25/2024 by Myron Michel MD Port Left: Chest Wall [employer] 09/23/2026 [id number] / / [id number] Description:6FR SL SmartPort (Power - 300psi max) Procedures Procedure Name Priority Date/Time Associated Diagnosis Comments CBC WITH PLATELETS & DIFFERENTIAL STAT 06/29/2024 6:05 AM [employer] EXTRA PURPLE TOP TUBE STAT 06/29/2024 6:05 AM [employer] EXTRA TUBE STAT 06/29/2024 6:05 AM [employer] CBC WITH PLATELETS AND DIFFERENTIAL STAT 06/29/2024 6:05 AM [employer] COMPREHENSIVE METABOLIC PANEL STAT 06/29/2024 6:04 AM [employer] CBC WITH PLATELETS & DIFFERENTIAL STAT 06/28/2024 6:06 AM [employer] BILIRUBIN DIRECT Add-On 06/28/2024 6:06 AM [employer] RBC AND PLATELET MORPHOLOGY STAT 06/28/2024 6:06 AM [employer] CBC WITH PLATELETS AND DIFFERENTIAL STAT 06/28/2024 6:06 AM [employer] RETICULOCYTE COUNT STAT 06/28/2024 6: 06 AM [employer] LACTATE DEHYDROGENASE STAT 06/28/2024 6:06 AM [employer] COMPREHENSIVE METABOLIC PANEL STAT 06/28/2024 6:06 AM [employer] HEPARIN UNFRACTIONATED ANTI XA LEVEL STAT 06/28/2024 1:57 AM [employer] HEPARIN UNFRACTIONATED ANTI XA LEVEL STAT 06/27/2024 7:14 PM [employer] EXTRA GREEN TOP (LITHIUM HEPARIN) TUBE STAT 06/27/2024 5:55 PM [employer] EXTRA TUBE STAT 06/27/2024 5:55 PM [employer] ECHO COMPLETE Routine 06/27/2024 2:33 PM [employer] HEPARIN UNFRACTIONATED ANTI XA LEVEL STAT 06/27/2024 12:39 PM [employer] US LOWER EXTREMITY VENOUS DUPLEX BILATERAL STAT 06/27/2024 11:21 AM [employer] INFLUENZA A/B, RSV AND SARS-COV2 PCR STAT 06/27/2024 8:43 AM [employer] ROUTINE UA WITH MICROSCOPIC REFLEX TO CULTURE STAT 06/27/2024 8:12 AM [employer] ABO/RH TYPE AND SCREEN Add-On 5:57 AM [employer] CBC WITH PLATELETS & DIFFERENTIAL Add-On 06/27/2024 5:57 AM [employer] TYPE AND SCREEN, ADULT Routine 5:57 AM [employer] RBC AND PLATELET MORPHOLOGY STAT 06/27/2024 5:57 AM [employer] CBC WITH PLATELETS AND DIFFERENTIAL Add-On 06/27/2024 5:57 AM [employer] RETICULOCYTE COUNT Add-On 06/27/2024 5: 57 AM [employer] HEPATIC FUNCTION PANEL Add-On 5:57 AM [employer] CBC WITH PLATELETS STAT 06/27/2024 5: 57 AM [employer] BASIC METABOLIC PANEL STAT 06/27/2024 5:57 AM [employer] HEPARIN UNFRACTIONATED ANTI XA LEVEL STAT 06/27/2024 5:56 AM [employer] HEPARIN UNFRACTIONATED ANTI XA LEVEL STAT 06/26/2024 10:46 PM [employer] BLOOD CULTURE STAT 06/26/2024 6:46 PM [employer] BLOOD CULTURE STAT 06/26/2024 6:46 PM [employer] ERYTHROCYTE SEDIMENTATION RATE AUTO STAT 06/26/2024 6:46 PM [employer] EKG 12-LEAD, TRACING ONLY STAT 06/26/2024 5:[address] CHEST PULMONARY EMBOLISM W CONTRAST STAT 06/26/2024 4:15 PM [employer] XR CHEST 2 VIEWS STAT 06/26/2024 3:13 PM [employer] ABO/RH TYPE AND SCREEN STAT 2:42 PM [employer] CBC WITH PLATELETS & DIFFERENTIAL STAT 06/26/2024 2:42 PM [employer] TYPE AND SCREEN, ADULT STAT 2:42 PM [employer] PROCALCITONIN STAT 06/26/2024 2:42 PM [employer] CRP INFLAMMATION Add-On 06/26/2024 2:42 PM [employer] CBC WITH PLATELETS AND DIFFERENTIAL STAT 06/26/2024 2:42 PM [employer] TROPONIN T, HIGH SENSITIVITY STAT 06/26/2024 2:42 PM [employer] D DIMER QUANTITATIVE STAT 06/26/2024 2:42 PM [employer] HCG QUALITATIVE STAT 06/26/2024 2:42 PM [employer] BASIC METABOLIC PANEL STAT 06/26/2024 2:42 PM [employer] XR CHEST 2 VIEWS STAT 06/25/2024 10:35 PM [employer] EKG 12-LEAD, TRACING ONLY STAT 06/25/2024 10:19 PM [employer] ROUTINE UA WITH MICROSCOPIC REFLEX TO CULTURE STAT 06/25/2024 10:16 PM [employer] CBC WITH PLATELETS & DIFFERENTIAL STAT 06/25/2024 10:15 PM [employer] CBC WITH PLATELETS AND DIFFERENTIAL STAT 06/25/2024 10:15 PM [employer] TROPONIN T, HIGH SENSITIVITY STAT 06/25/2024 10:15 PM [employer] BASIC METABOLIC PANEL STAT 06/25/2024 10:15 PM [employer] ROUTINE UA WITH MICROSCOPIC REFLEX TO CULTURE STAT 06/24/2024 10:15 AM [employer] CBC WITH PLATELETS & DIFFERENTIAL STAT 06/24/2024 10:11 AM [employer] CBC WITH PLATELETS AND DIFFERENTIAL STAT 06/24/2024 10:11 AM [employer] RETICULOCYTE COUNT STAT 06/24/2024 10:11 AM [employer] HCG QUALITATIVE STAT 06/24/2024 10:11 AM [employer] MAGNESIUM STAT 06/24/2024 10:11 AM [employer] COMPREHENSIVE METABOLIC PANEL STAT 06/24/2024 10:11 AM [employer] INR STAT 06/24/2024 10:11 AM [employer] PARTIAL THROMBOPLASTIN TIME STAT 06/24/2024 10:11 AM [employer] CBC WITH PLATELETS & DIFFERENTIAL STAT 06/23/2024 6:22 PM [employer] DIFFERENTIAL STAT 06/23/2024 6:22 PM [employer] CBC WITH PLATELETS AND DIFFERENTIAL STAT 06/23/2024 6:22 PM [employer] HCG QUALITATIVE STAT 06/23/2024 6:22 PM [employer] COMPREHENSIVE METABOLIC PANEL STAT 06/23/2024 6:22 PM [employer] CBC WITH PLATELETS & DIFFERENTIAL STAT 06/22/2024 7:10 PM [employer] CBC WITH PLATELETS AND DIFFERENTIAL STAT 06/22/2024 7:10 PM [employer] RETICULOCYTE COUNT STAT 06/22/2024 7: 10 PM [employer] HCG QUALITATIVE STAT 06/22/2024 7:10 PM [employer] COMPREHENSIVE METABOLIC PANEL STAT 06/22/2024 7:10 PM [employer] CBC WITH PLATELETS & DIFFERENTIAL STAT 06/20/2024 5:48 AM [employer] CBC WITH PLATELETS AND DIFFERENTIAL STAT 06/20/2024 5:48 AM [employer] RETICULOCYTE COUNT Routine 06/20/2024 5: 48 AM [employer] COMPREHENSIVE METABOLIC PANEL Routine 06/20/2024 5:48 AM [employer] LACTATE DEHYDROGENASE Routine 06/20/2024 5:48 AM [employer] CBC WITH PLATELETS & DIFFERENTIAL STAT 06/19/2024 9:30 AM [employer] RBC AND PLATELET MORPHOLOGY STAT 06/19/2024 9:30 AM [employer] CBC WITH PLATELETS AND DIFFERENTIAL STAT 06/19/2024 9:30 AM [employer] RETICULOCYTE COUNT STAT 06/19/2024 9: 30 AM [employer] COMPREHENSIVE METABOLIC PANEL STAT 06/19/2024 9:30 AM [employer] LACTATE DEHYDROGENASE STAT 06/19/2024 9:30 AM [employer] PLATELET COUNT STAT 06/19/2024 12:17 AM [employer] CREATININE STAT 06/19/2024 12:17 AM [employer] CBC WITH PLATELETS & DIFFERENTIAL STAT 06/18/2024 8:24 AM [employer] DIFFERENTIAL STAT 06/18/2024 8:24 AM [employer] CBC WITH PLATELETS AND DIFFERENTIAL STAT 06/18/2024 8:24 AM [employer] RETICULOCYTE COUNT STAT 06/18/2024 8: 24 AM [employer] COMPREHENSIVE METABOLIC PANEL STAT 06/18/2024 8:24 AM [employer] LACTATE DEHYDROGENASE STAT 06/18/2024 8:24 AM [employer] ROUTINE UA WITH MICROSCOPIC REFLEX TO CULTURE STAT 06/17/2024 1:11 PM [employer] TRANSFUSE RED BLOOD CELLS (UNIT) STAT 06/17/2024 10:26 AM [employer] PREPARE RED BLOOD CELLS (UNIT) STAT 06/17/2024 9:12 AM [employer] TRANSFERRIN Add-On 06/17/2024 6:16 AM [employer] IRON AND IRON BINDING CAPACITY Add-On 06/17/2024 6:16 AM [employer] CBC WITH PLATELETS STAT 06/17/2024 6: 16 AM [employer] BASIC METABOLIC PANEL STAT 06/17/2024 6:16 AM [employer] TROPONIN T, HIGH SENSITIVITY STAT 06/16/2024 9:33 PM [employer] XR CHEST 2 VIEWS STAT 06/16/2024 6:09 PM [employer] ABO/RH TYPE AND SCREEN STAT 5:37 PM [employer] CBC WITH PLATELETS & DIFFERENTIAL STAT 06/16/2024 5:37 PM [employer] BLOOD CULTURE STAT 06/16/2024 5:37 PM [employer] TYPE AND SCREEN, ADULT STAT 5:37 PM [employer] RBC AND PLATELET MORPHOLOGY STAT 06/16/2024 5:37 PM [employer] CBC WITH PLATELETS AND DIFFERENTIAL STAT 06/16/2024 5:37 PM [employer] PROLACTIN STAT 06/16/2024 5:37 PM [employer] TROPONIN T, HIGH SENSITIVITY STAT 06/16/2024 5:37 PM [employer] COMPREHENSIVE METABOLIC PANEL STAT 06/16/2024 5:37 PM [employer] EKG 12-LEAD, TRACING ONLY STAT 06/16/2024 4:55 PM [employer] CBC WITH PLATELETS & DIFFERENTIAL STAT 06/15/2024 6:09 AM [employer] CBC WITH PLATELETS AND DIFFERENTIAL STAT 06/15/2024 6:09 AM [employer] BASIC METABOLIC PANEL STAT 06/15/2024 6:09 AM [employer] XR CHEST PORT 1 VIEW STAT 06/14/2024 8:46 AM [employer] CBC WITH PLATELETS STAT 06/14/2024 7: 08 AM [employer] BASIC METABOLIC PANEL STAT 06/14/2024 7:08 AM [employer] CBC WITH PLATELETS STAT 06/13/2024 6: 32 PM [employer] CBC WITH PLATELETS & DIFFERENTIAL STAT 06/13/2024 6:00 AM [employer] RBC AND PLATELET MORPHOLOGY STAT 06/13/2024 6:00 AM [employer] CBC WITH PLATELETS AND DIFFERENTIAL STAT 06/13/2024 6:00 AM [employer] BASIC METABOLIC PANEL STAT 06/13/2024 5:59 AM [employer] RESPIRATORY PANEL PCR STAT 06/12/2024 9:34 PM [employer] BLOOD CULTURE STAT 06/12/2024 8:46 PM [employer] BLOOD CULTURE STAT 06/12/2024 8:46 PM [employer] XR CHEST 2 VIEWS STAT 06/12/2024 7:38 PM [employer] ABO/RH TYPE AND SCREEN Add-On 7:17 PM [employer] CBC WITH PLATELETS & DIFFERENTIAL STAT 06/12/2024 7:17 PM [employer] TYPE AND SCREEN, ADULT Routine 7:17 PM [employer] RBC AND PLATELET MORPHOLOGY STAT 06/12/2024 7:17 PM [employer] CBC WITH PLATELETS AND DIFFERENTIAL STAT 06/12/2024 7:17 PM [employer] BLOOD GAS VENOUS STAT 06/12/2024 7:17 PM [employer] TROPONIN T, HIGH SENSITIVITY STAT 06/12/2024 7:17 PM [employer] BASIC METABOLIC PANEL STAT 06/12/2024 7:17 PM [employer] INR STAT 06/12/2024 7:17 PM [employer] EKG 12-LEAD, TRACING ONLY STAT 06/12/2024 6:37 PM [employer] ECG 12-LEAD WITH MUSE SJN,SJO,WWH STAT 06/11/2024 9:04 PM [employer] CBC WITH PLATELETS & DIFFERENTIAL Routine 06/07/2024 1:15 PM [employer] Sickle cell pain crisis (H) RBC AND PLATELET MORPHOLOGY Routine 06/07/2024 1:15 PM [employer] Sickle cell pain crisis (H) INFLUENZA A/B, RSV AND SARS-COV2 PCR Routine 06/07/2024 1:15 PM [employer] Fever CBC WITH PLATELETS AND DIFFERENTIAL Routine 06/07/2024 1:15 PM [employer] Sickle cell pain crisis (H) BASIC METABOLIC PANEL Routine 06/07/2024 1:15 PM [employer] Sickle cell pain crisis (H) ECG 12-LEAD WITH MUSE SJN,SJO,WWH STAT 06/05/2024 11:40 AM [employer] ECG 12-LEAD WITH MUSE SJN,SJO,WWH STAT 06/03/2024 3:24 PM [employer] CBC WITH PLATELETS & DIFFERENTIAL STAT 05/31/2024 10:21 PM [employer] RBC AND PLATELET MORPHOLOGY STAT 05/31/2024 10:21 PM [employer] CBC WITH PLATELETS AND DIFFERENTIAL STAT 05/31/2024 10:21 PM [employer] BASIC METABOLIC PANEL STAT 05/31/2024 10:21 PM [employer] RETICULOCYTE COUNT STAT 05/31/2024 10:21 PM [employer] TRANSFUSE RED BLOOD CELLS (UNIT) Routine 05/30/2024 8:28 AM [employer] 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) History of transfusion PREPARE RED BLOOD CELLS (UNIT) Routine 05/29/2024 5:12 PM [employer] ABO/RH TYPE AND SCREEN Routine 11:23 AM [employer] History of transfusion CBC WITH PLATELETS & DIFFERENTIAL Routine 05/29/2024 11:23 AM [employer] BILL ONLY- CAPILLARY ELECTROPHORESIS Routine 05/29/2024 11:23 AM [employer] BILL ONLY- SICKLE SOLUBILITY BILL Routine 05/29/2024 11:23 AM [employer] URINE CULTURE Routine 05/29/2024 11:23 AM [employer] TYPE AND SCREEN, ADULT Add-On 11:23 AM [employer] History of transfusion RBC AND PLATELET MORPHOLOGY Routine 05/29/2024 11:23 AM [employer] CBC WITH PLATELETS AND DIFFERENTIAL Routine 05/29/2024 11:23 AM [employer] GENOTYPE RED BLOOD CELL Routine 05/29/2024 11:23 AM [employer] History of transfusion HEMOGLOBIN EVAL REFLEX TO ELP OR RBC SOLUBILITY Routine 05/29/2024 11:23 AM [employer] FERRITIN Routine 05/29/2024 11:23 AM [employer] ROUTINE UA WITH MICROSCOPIC REFLEX TO CULTURE Routine 05/29/2024 11:23 AM [employer] COMPREHENSIVE METABOLIC PANEL Routine 05/29/2024 11:23 AM [employer] RETICULOCYTE COUNT Routine 05/29/2024 11:23 AM [employer] CBC WITH PLATELETS & DIFFERENTIAL STAT 05/29/2024 12:53 AM [employer] MANUAL DIFFERENTIAL STAT 05/29/2024 12:53 AM [employer] CBC WITH PLATELETS AND DIFFERENTIAL STAT 05/29/2024 12:53 AM [employer] RETICULOCYTE COUNT STAT 05/29/2024 12:53 AM [employer] CBC WITH PLATELETS & DIFFERENTIAL STAT 05/27/2024 3:13 PM [employer] MANUAL DIFFERENTIAL STAT 05/27/2024 3 :13 PM [employer] CBC WITH PLATELETS AND DIFFERENTIAL STAT 05/27/2024 3:13 PM [employer] RETICULOCYTE COUNT STAT 05/27/2024 3: 13 PM [employer] XR CHEST 2 VIEWS STAT 05/27/2024 2:57 PM [employer] COMPREHENSIVE METABOLIC PANEL STAT 05/27/2024 2:30 PM [employer] ECG 12-LEAD WITH MUSE SJNJEREMIAS WWH STAT 05/27/2024 12:12 PM [employer] IR PROCEDURE NOTE Routine 05/25/2024 2:5 4 PM [employer] IR CHEST PORT PLACEMENT > 5 YRS OF AGE Routine: Next available opening 05/25/2024 2:47 PM [employer] 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) IR CHEST PORT PLACEMENT > 5 YRS OF AGE Priority: 1-2 Weeks 05/25/2024 2:47 PM [employer] 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) HCG QUALITATIVE URINE Routine 05/25/2024 12:[address] [employer] [address] CHEST PULMONARY EMBOLISM W CONTRAST STAT 05/23/2024 9:33 PM [employer] N TERMINAL PRO BNP OUTPATIENT STAT 05/23/2024 9:02 PM [employer] TROPONIN T, HIGH SENSITIVITY STAT 05/23/2024 9:02 PM [employer] RETICULOCYTE COUNT STAT 05/23/2024 9: 02 PM [employer] CBC WITH PLATELETS STAT 05/23/2024 9: 02 PM [employer] ECG 12-LEAD WITH MUSE SJN,SJO,WWH STAT 05/23/2024 6:54 PM [employer] XR CHEST 2 VIEWS STAT 05/22/2024 5:19 PM [employer] CBC WITH PLATELETS & DIFFERENTIAL STAT 05/22/2024 3:51 PM [employer] RBC AND PLATELET MORPHOLOGY STAT 05/22/2024 3:51 PM [employer] CBC WITH PLATELETS AND DIFFERENTIAL STAT 05/22/2024 3:51 PM [employer] BASIC METABOLIC PANEL STAT 05/22/2024 3:51 PM [employer] ECG 12-LEAD WITH MUSE SJN,SJO,WWH STAT 05/22/2024 3:14 PM [employer] XR CHEST 2 VIEWS STAT 05/20/2024 9:30 AM [employer] CBC WITH PLATELETS & DIFFERENTIAL STAT 05/20/2024 9:09 AM [employer] RBC AND PLATELET MORPHOLOGY STAT 05/20/2024 9:09 AM [employer] BASIC METABOLIC PANEL STAT 05/20/2024 9:09 AM [employer] EXTRA GREEN TOP (LITHIUM HEPARIN) TUBE STAT 05/20/2024 9:09 AM [employer] EXTRA TUBE STAT 05/20/2024 9:09 AM [employer] CBC WITH PLATELETS AND DIFFERENTIAL STAT 05/20/2024 9:09 AM [employer] RETICULOCYTE COUNT STAT 05/20/2024 9: 09 AM [employer] BASIC METABOLIC PANEL STAT 05/20/2024 8:21 AM [employer] ECG 12-LEAD WITH MUSE SJN,SJO,WWH STAT 05/20/2024 7:36 AM [employer] CBC WITH PLATELETS & DIFFERENTIAL STAT 05/19/2024 3:05 AM [employer] MANUAL DIFFERENTIAL STAT 05/19/2024 3 :05 AM [employer] CBC WITH PLATELETS AND DIFFERENTIAL STAT 05/19/2024 3:05 AM [employer] HCG QUALITATIVE STAT 05/19/2024 3:05 AM [employer] CK TOTAL STAT 05/19/2024 3:05 AM [employer] HEPATIC FUNCTION PANEL STAT 3:05 AM [employer] BASIC METABOLIC PANEL STAT 05/19/2024 3:05 AM [employer] RETICULOCYTE COUNT STAT 05/19/2024 3: 05 AM [employer] CBC WITH PLATELETS & DIFFERENTIAL STAT 05/16/2024 10:17 PM [employer] RBC AND PLATELET MORPHOLOGY STAT 05/16/2024 10:17 PM [employer] CBC WITH PLATELETS AND DIFFERENTIAL STAT 05/16/2024 10:17 PM [employer] BASIC METABOLIC PANEL STAT 05/16/2024 10:17 PM [employer] INFLUENZA A/B, RSV AND SARS-COV2 PCR STAT 05/16/2024 10:00 PM [employer] CBC WITH PLATELETS & DIFFERENTIAL STAT 05/14/2024 10:24 PM [employer] MANUAL DIFFERENTIAL STAT 05/14/2024 10:24 PM [employer] CBC WITH PLATELETS AND DIFFERENTIAL STAT 05/14/2024 10:24 PM [employer] HCG QUALITATIVE STAT 05/14/2024 10:24 PM [employer] TROPONIN T, HIGH SENSITIVITY STAT 05/14/2024 10:24 PM [employer] RETICULOCYTE COUNT STAT 05/14/2024 10:24 PM [employer] HEPATIC FUNCTION PANEL STAT 10:24 PM [employer] BASIC METABOLIC PANEL STAT 05/14/2024 10:24 PM [employer] ECG 12-LEAD WITH MUSE SJN,SJO,WWH STAT 05/14/2024 10:12 PM [employer] EXTRA PURPLE TOP TUBE STAT 05/13/2024 6:17 PM [employer] EXTRA TUBE STAT 05/13/2024 6:17 PM [employer] LACTATE DEHYDROGENASE STAT 05/13/2024 6:16 PM [employer] CBC WITH PLATELETS & DIFFERENTIAL STAT 05/13/2024 4:57 PM [employer] MANUAL DIFFERENTIAL STAT 05/13/2024 4 :57 PM [employer] CBC WITH PLATELETS AND DIFFERENTIAL STAT 05/13/2024 4:57 PM [employer] TROPONIN T, HIGH SENSITIVITY STAT 05/13/2024 4:57 PM [employer] RETICULOCYTE COUNT STAT 05/13/2024 4: 57 PM [employer] HEPATIC FUNCTION PANEL STAT 4:57 PM [employer] BASIC METABOLIC PANEL STAT 05/13/2024 4:57 PM [employer] ECG 12-LEAD WITH MUSE SJN,SJO,WWH STAT 05/13/2024 3:38 PM [employer] INFLUENZA A/B, RSV AND SARS-COV2 PCR STAT 05/08/2024 7:33 PM [employer] XR CHEST 2 VIEWS STAT 05/08/2024 5:27 PM [employer] CBC WITH PLATELETS & DIFFERENTIAL STAT 05/08/2024 4:14 PM [employer] RBC AND PLATELET MORPHOLOGY STAT 05/08/2024 4:14 PM [employer] CBC WITH PLATELETS AND DIFFERENTIAL STAT 05/08/2024 4:14 PM [employer] HCG QUALITATIVE STAT 05/08/2024 4:14 PM [employer] INR STAT 05/08/2024 4:14 PM [employer] TROPONIN T, HIGH SENSITIVITY STAT 05/08/2024 4:14 PM [employer] RETICULOCYTE COUNT STAT 05/08/2024 4: 14 PM [employer] COMPREHENSIVE METABOLIC PANEL STAT 05/08/2024 4:14 PM [employer] ECG 12-LEAD WITH MUSE SJN,SJO,WWH STAT 05/08/2024 3:13 PM [employer] ECG 12-LEAD WITH MUSE SJN,SJO,WWH STAT 05/06/2024 7:51 PM [employer] CBC WITH PLATELETS & DIFFERENTIAL STAT 05/06/2024 7:43 PM [employer] RBC AND PLATELET MORPHOLOGY STAT 05/06/2024 7:43 PM [employer] CBC WITH PLATELETS AND DIFFERENTIAL STAT 05/06/2024 7:43 PM [employer] HEPATIC FUNCTION PANEL STAT 7:43 PM [employer] RETICULOCYTE COUNT STAT 05/06/2024 7: 43 PM [employer] TROPONIN T, HIGH SENSITIVITY STAT 05/06/2024 7:43 PM [employer] BASIC METABOLIC PANEL STAT 05/06/2024 7:43 PM [employer] XR CHEST 2 VIEWS STAT 05/05/2024 12:16 PM [employer] CBC WITH PLATELETS & DIFFERENTIAL STAT 05/05/2024 11:50 AM [employer] RBC AND PLATELET MORPHOLOGY STAT 05/05/2024 11:50 AM [employer] CBC WITH PLATELETS AND DIFFERENTIAL STAT 05/05/2024 11:50 AM [employer] TROPONIN T, HIGH SENSITIVITY STAT 05/05/2024 11:50 AM [employer] RETICULOCYTE COUNT STAT 05/05/2024 11:50 AM [employer] BASIC METABOLIC PANEL STAT 05/05/2024 11:50 AM [employer] ECG 12-LEAD WITH MUSE SJN,SJO,WWH STAT 05/05/2024 11:03 AM [employer] CBC WITH PLATELETS & DIFFERENTIAL STAT 04/28/2024 1:50 AM [employer] VITAMIN D DEFICIENCY SCREENING Add-On 04/28/2024 1:50 AM [employer] Sickle cell pain crisis (H) MANUAL DIFFERENTIAL STAT 04/28/2024 1 :50 AM [employer] CBC WITH PLATELETS AND DIFFERENTIAL STAT 04/28/2024 1:50 AM [employer] RETICULOCYTE COUNT STAT 04/28/2024 1: 50 AM [employer] COMPREHENSIVE METABOLIC PANEL STAT 04/28/2024 1:50 AM [employer] CBC WITH PLATELETS & DIFFERENTIAL STAT 04/27/2024 12:23 AM [employer] RBC AND PLATELET MORPHOLOGY STAT 04/27/2024 12:23 AM [employer] CBC WITH PLATELETS AND DIFFERENTIAL STAT 04/27/2024 12:23 AM [employer] RETICULOCYTE COUNT STAT 04/27/2024 12:23 AM [employer] COMPREHENSIVE METABOLIC PANEL STAT 04/27/2024 12:[address] [address] [address] PELVIS BONE WO CONTRAST STAT 04/19/2024 3:22 AM [employer] HCG QUALITATIVE URINE STAT 04/19/2024 2:17 AM [employer] ROUTINE UA WITH MICROSCOPIC REFLEX TO CULTURE STAT 04/19/2024 2:16 AM [employer] CBC WITH PLATELETS & DIFFERENTIAL STAT 04/19/2024 2:11 AM [employer] MANUAL DIFFERENTIAL STAT 04/19/2024 2 :11 AM [employer] CBC WITH PLATELETS AND DIFFERENTIAL STAT 04/19/2024 2:11 AM [employer] RETICULOCYTE COUNT STAT 04/19/2024 2: 11 AM [employer] BASIC METABOLIC PANEL STAT 04/19/2024 2:11 AM [employer] CBC WITH PLATELETS & DIFFERENTIAL Routine 04/10/2024 5:35 AM [employer] CBC WITH PLATELETS AND DIFFERENTIAL Routine 04/10/2024 5:35 AM [employer] CBC WITH PLATELETS STAT 04/09/2024 6: 13 AM [employer] BASIC METABOLIC PANEL STAT 04/09/2024 6:13 AM [employer] CBC WITH PLATELETS & DIFFERENTIAL STAT 04/08/2024 10:22 PM [employer] EXTRA RED TOP TUBE STAT 04/08/2024 10:22 PM [employer] EXTRA BLUE TOP TUBE STAT 04/08/2024 10:22 PM [employer] CBC WITH PLATELETS AND DIFFERENTIAL STAT 04/08/2024 10:22 PM [employer] EXTRA TUBE STAT 04/08/2024 10:22 PM [employer] BASIC METABOLIC PANEL STAT 04/08/2024 10:22 PM [employer] RETICULOCYTE COUNT STAT 04/08/2024 10:22 PM [employer] ECG 12-LEAD WITH MUSE SJN,SJO,WWH STAT 04/08/2024 9:[address] [address] [address] CHEST PULMONARY EMBOLISM W CONTRAST STAT 04/06/2024 2:22 AM [employer] D DIMER QUANTITATIVE STAT 04/06/2024 12:45 AM [employer] TROPONIN T, HIGH SENSITIVITY STAT 04/06/2024 12:45 AM [employer] BASIC METABOLIC PANEL STAT 04/06/2024 12:45 AM [employer] CBC WITH PLATELETS AND DIFFERENTIAL STAT 04/06/2024 12:43 AM [employer] ECG 12-LEAD WITH MUSE SJN,SJO,WWH STAT 04/06/2024 12:41 AM [employer] CBC WITH PLATELETS & DIFFERENTIAL STAT 04/05/2024 11:47 PM [employer] from Last 3 Months Results * Extra Purple Top Tube (06/29/2024 6:05 AM [employer]) Only the most recent of2 resultswithin the time period is included. Hold Specimen [facility] 06/29/2024 7:31 AM [employer] [facility] Blood ARTERIAL LINE / Unknown IVAD (Port) / Unknown 06/29/2024 6:05 AM [employer] 06/29/2024 6:19 AM [employer] us Alex Gillespie MD LAB - BLOOD ORDERABLES Final Re sult [facility] [place] [facility] [address] [facility], [address] [place] [address], [place] * (ABNORMAL) CBC with platelets and differential (06/29/2024 6:05 AM [employer]) Only the most recent of35 resultswithin the time period is included. WBC Count 12.3(H) 4.0 - 11.0 10e3/uL 06/29/2024 6:30 AM [employer] [facility] RBC Count 2.60(L) 3.80 - 5.20 10e6/uL 06/29/2024 6:30 AM [employer] [facility] Hemoglobin 8.5(L) 11.7 - 15.7 g/dL 06/29/2024 6:30 AM [employer] [facility] Hematocrit 25.5(L) 35.0 - 47.0 % 06/29/2024 6:30 AM [employer] [facility] MCV 98 78 - 100 fL 06/29/2024 6:30 AM [employer] [facility] MCH 32.7 26.5 - 33.0 pg 06/29/2024 6:30 AM [employer] [facility] MCHC 33.3 31.5 - 36.5 g/dL 06/29/2024 6:30 AM [employer] [facility] RDW 17.9(H) 10.0 - 15.0 % 06/29/2024 6:30 AM [employer] [facility] Platelet Count 438 150 - 450 10e3/uL 06/29/2024 6:30 AM [employer] [facility] % Neutrophils 62 % 06/29/2024 6:30 AM [employer] [facility] % Lymphocytes 25 % 06/29/2024 6:30 AM [employer] [facility] % Monocytes 9 % 06/29/2024 6:30 AM [employer] [facility] % Eosinophils 3 % 06/29/2024 6:30 AM [employer] [facility] % Basophils 1 % 06/29/2024 6:30 AM [employer] [facility] % Immature Granulocytes 0 % 06/29/2024 6:30 AM [employer] [facility] NRBCs per 100 WBC 1(H) <1 /100 025 6:30 AM [employer] [facility] Absolute Neutrophils 7.6 1.6 - 8.3 10e3/uL 06/29/2024 6:30 AM [employer] [facility] Absolute Lymphocytes 3.1 0.8 - 5.3 10e3/uL 06/29/2024 6:30 AM [employer] [facility] Absolute Monocytes 1.1 0.0 - 1.3 10e3/uL 06/29/2024 6:30 AM [employer] [facility] Absolute Eosinophils 0.4 0.0 - 0.7 10e3/uL 06/29/2024 6:30 AM [employer] [facility] Absolute Basophils 0.1 0.0 - 0.2 10e3/uL 06/29/2024 6:30 AM [employer] [facility] Absolute Immature Granulocytes 0.0 <=0.4 10e3/uL 06/29/2024 6:30 AM [employer] [facility] Absolute NRBCs 0.1 10e3/uL 06/29/2024 6:30 AM [employer] [facility] Blood ARTERIAL LINE / Unknown IVAD (Port) / Unknown 06/29/2024 6:05 AM [employer] 06/29/2024 6:17 AM [employer] us Polly Allen MD LAB - BLOOD ORDER SYD Final Result [facility] [place] [facility] [address] [facility], [address] [id number] * (ABNORMAL) Comprehensive metabolic panel (06/29/2024 6:04 AM [employer]) Only the most recent of14 resultswithin the time period is included. Sodium 132(L) 135 - 145 mmol/L 06/29/2024 6:51 AM [employer] [facility] Potassium 4.6 3.4 - 5.3 mmol/L 06/29/2024 6:51 AM [employer] [facility] Carbon Dioxide (CO2) 21(L) 22 - 29 mmol/L 06/29/2024 6:51 AM [employer] [facility] Anion Gap 9 7 - 15 mmol/L 06/29/2024 6:51 AM [employer] [facility] Urea Nitrogen 14.3 6.0 - 20.0 mg/dL 06/29/2024 6:51 AM [employer] [facility] Creatinine 0.70 0.51 - 0.95 mg/dL 06/29/2024 6:51 AM [employer] [facility] GFR Estimate >90 >60 mL/min/1.7 3m2 06/29/2024 6:51 AM [employer] [facility] Comment:eGFR calculated in 2020 CKD-EPI equation. Calcium 8.9 8.8 - 10.4 mg/dL 06/29/2024 6:51 AM [employer] [facility] Chloride 102 98 - 107 mmol/L 06/29/2024 6:51 AM [employer] [facility] Glucose 98 70 - 99 mg/dL 06/29/2024 6:51 AM [employer] [facility] Alkaline Phosphatase 106 40 - 150 U/L 06/29/2024 6:51 AM [employer] [facility] AST 49(H) 0 - 45 U/L 06/29/2024 6:51 AM [employer] [facility] ALT 44 0 - 50 U/L 06/29/2024 6:51 AM [employer] [facility] Protein Total 7.5 6.4 - 8.3 g/dL 06/29/2024 6:51 AM [facility] [facility] [facility] Albumin 4.1 3.5 - 5.2 g/dL 06/29/2024 6:51 AM [facility] [facility] Bilirubin Total 1.6(H) <=1.2 mg/dL 06/29/2024 6:51 AM [facility] [facility] [facility] Blood ARTERIAL LINE / Unknown IVAD (Port) / Unknown 06/29/2024 6:04 AM [employer] 06/29/2024 6:19 AM [employer] Polly Allen MD LAB - BLOOD ORDER SYD Final Result [facility] [address] [facility], [address] [place] [id number] * (ABNORMAL) RBC and Platelet Morphology (06/28/2024 6:06 AM [employer]) Only the most recent of16 resultswithin the time period is included. RBC Morphology Confirmed RBC Indices 06/28/2024 7:15 AM [facility] [facility] [facility] Platelet Assessment Automated Count Confirmed. Platelet morphology is normal. Automated Count Confirmed. Platelet morphology is normal. 06/28/2024 7:15 AM [facility] [facility] [facility] Sickle Cells Slight(A) None Seen 06/28/2024 7:15 AM [facility] [facility] [facility] Target Cells Moderate(A) None Seen 06/28/2024 7:15 AM [facility] [facility] [facility] Blood VENOUS LINE / Unknown Venipuncture / Unknown 06/28/2024 6:06 AM [employer] 06/28/2024 6:22 AM [employer] Polly Allen MD LAB - BLOOD ORDER SYD Final Result Performing Organization Address City/[facility]/ZIP Co de Phone Number LABORATORY [facility] [address] [facility], [address] * (ABNORMAL) Lactate Dehydrogenase (06/28/2024 6:06 AM [employer]) Only the most recent of5 resultswithin the time period is included. Lactate Dehydrogenase 451(H) 0 - 250 U/L 06/28/2024 6:51 AM [facility] [facility] Blood VENOUS LINE / Unknown Venipuncture / Unknown 06/28/2024 6:06 AM [employer] 06/28/2024 6:22 AM [employer] Polly Allen MD LAB - BLOOD ORDER SYD Final Result Performing Organization Address City/[facility] de Phone Number LABORATORY [facility] [address] [facility], Room [address] [place] [address] * (ABNORMAL) Reticulocyte count (06/28/2024 6:06 AM [employer]) Only the most recent of23 resultswithin the time period is included. % Reticulocyte 12.7(H) 0.5 - 2.0 % 06/28/2024 6:57 AM [facility] [facility] [facility] Comment:x2 dilution Absolute Reticulocyte 0.316(H) 0.025 - 0.095 10e6/uL 06/28/2024 6:57 AM [facility] [facility] [facility] Comment:x2 dilution Blood VENOUS LINE / Unknown Venipuncture / Unknown 06/28/2024 6:06 AM [employer] 06/28/2024 6:22 AM [employer] Polly Allen MD LAB - BLOOD ORDER SYD Final Result Performing Organization Address [facility]/ZIP Co de Phone Number LABORATORY [facility] [address] [place] [address], [facility] [address] * (ABNORMAL) Bilirubin direct (06/28/2024 6:06 AM [employer]) Bilirubin Direct 0.53(H) 0.00 - 0.30 mg/dL 06/28/2024 9:50 AM [employer] [facility] Blood VENOUS LINE / Unknown Venipuncture / Unknown 06/28/2024 6:06 AM [employer] 06/28/2024 6:22 AM [employer] Polly Allen MD LAB - BLOOD ORDER SYD Final Result Performing Organization Address [facility] Phone Number LABORATORY [facility] [address] [place] [address], [address] * Heparin Unfractionated Anti Xa Level (06/28/2024 1:57 AM [employer]) Only the most recent of5 resultswithin the time period is included. [facility] Anti Xa Unfractionated Heparin 0.45 For Reference Range, See Comment IU/mL 06/28/2024 2:32 AM [employer] Blood VENOUS LINE / Unknown Venipuncture / Unknown 06/28/2024 1:57 AM [employer] 06/28/2024 2:17 AM [employer] Narrative [facility] - 06/28/2024 2:32 AM [employer] Therapeutic Range: UFH: 0.25-0.50 IU/mL for low intensity dosing, 0.30-0.70 IU/mL for high intensity dosing DVT and PE. This test is not validated for other direct factor X inhibitors (e.g. rivaroxaban, apixaban, edoxaban, betrixaban, fondaparinux) and should not be used for monitoring of other medications. Alex Gillespie MD LAB - BLOOD ORDERABLES Final Re sult LABORATORY [facility] Lab [address] [facility], [address] [place] [address] * Extra Green Top ([place] Heparin) Tube (06/27/2024 5:55 PM [employer]) Only the most recent of2 resultswithin the time period is included. Hold Specimen JIC 06/27/2024 8:31 PM [employer] LABORATORY Blood STRUCTURE OF RIGHT WRIST REGION / Unknown Venipuncture / Unknown 06/27/2024 5:55 PM [employer] 06/27/2024 7:22 PM [employer] us Alex Gillespie MD LAB - BLOOD ORDERABLES Final Re sult LABORATORY [facility] Lab [address] [facility], [address] [place] [phone] * ECHO COMPLETE (06/27/2024 2:33 PM [employer]) LVEF 55-60% CARDIOLOGY RESULTS Anatomical Region Laterality Modality Echocardiography 06/27/2024 1:58 PM [employer] Narrative 06/27/2024 2:51 PM [employer] [id number]^BRITTANEY^JERMAINE [facility] [facility] Laboratory [address] [place] [address] Name: LEW HERNÁNDEZ : 1995 Study Date: 06/27/2024 01:58 PM Age: 29 yrs Gender: Female Patient Location: [facility] Reason For Study: Pulmonary Emboli Ordering Physician: [...] Procedure Note Salvador Perea MD - 06/27/2024 [id number]^BRITTANEY^JERMAINE [facility] [facility] Laboratory [address] [place] [id number] Name: LEW HERNÁNDEZ : 1995 Study Date: 06/27/2024 01:58 PM Age: 29 yrs Gender: Female Patient Location: [facility] Reason For Study: Pulmonary Emboli Ordering Physician: [...] SALVADOR PEREA MD on 06/27/2024 02:51 PM us Jermaine Quispe MD CV ECHO ORDERABLES Edited Result - Final * US Lower Extremity Venous Duplex Bilateral (06/27/2024 11:21 AM [employer]) Anatomical Region Laterality Modality Vascular, Thigh, Leg Ultrasound Impressions 06/27/2024 11:45 AM [employer] IMPRESSION: No evidence of deep venous thrombosis in either lower extremity. I have personally reviewed the examination and initial interpretation and I agree with the findings. NINOSKA QUAN MD Narrative 06/27/2024 11:45 AM [employer] EXAMINATION: DOPPLER VENOUS ULTRASOUND OF BILATERAL LOWER [...] agree with the findings. NINOSKA QUAN MD Polly Marly Allen MD [facility] ORDERABLES Final Result * Influenza A/B, RSV and SARS-CoV2 PCR (COVID-19) Nose (06/27/2024 8:43 AM [employer]) Only the most recent of4 resultswithin the time period is included. Pathologist [facility] Influenza A PCR Negative Negative 06/27/2024 10:03 AM [employer] [facility] Influenza B PCR Negative Negative 06/27/2024 10:03 AM [employer] [facility] RSV PCR Negative Negative 06/27/2024 10:03 AM [employer] [facility] SARS CoV2 PCR Negative Negative 06/27/2024 10:03 AM [employer] [facility] Comment:NEGATIVE: SARS-CoV-2 (COVID-19) RNA not detected, presumed negative. Swab NASAL STRUCTURE / Unknown Non-blood Collection / Unknown 06/27/2024 8:43 AM [employer] 06/27/2024 8:59 AM [employer] Narrative [facility] - 06/27/2024 10:03 AM [employer] Testing was performed using the Xpert Xpress CoV2/Flu/RSV Assay on the [employer] GeneXpert Instrument. This test should be ordered [...] management. This test was validated by the [facility]. These laboratories are certified under the Clinical Laboratory Improvement Amendments of 1988 (CLIA-88) as qualified to perfom high complexity laboratory testing. Polly Allen MD LAB - MICRO GENER AL ORDERABLES Final Result [facility] Inf. Diseases Diag. Lab [address] [facility], [address] [place] [address] * (ABNORMAL) UA with Microscopic reflex to Culture (06/27/2024 8:12 AM [employer]) Only the most recent of6 resultswithin the time period is included. Color Urine Light Yellow Colorless, Straw, Light Yellow, Yellow 06/27/2024 8:29 AM [employer] [facility] Appearance Urine Clear Clear 06/28/19 8:29 AM [employer] [facility] Glucose Urine Negative Negative mg/dL 06/27/2024 8:29 AM [employer] [facility] Bilirubin Urine Negative Negative 8:29 AM [employer] [facility] Ketones Urine Negative Negative mg/dL 06/27/2024 8:29 AM [employer] [facility] Specific [place] Urine 1.011 1.003 - 1.035 06/27/2024 8:29 AM [employer] [facility] Blood Urine Negative Negative 06/27/2024 8:29 AM [employer] [facility] pH Urine 7.0 5.0 - 7.0 06/27/2024 8:29 AM [employer] [facility] Protein Albumin Urine Negative Negative mg/dL 06/27/2024 8:29 AM [employer] [facility] Urobilinogen Urine Normal Normal, 2.0 mg/dL 06/27/2024 8:29 AM [employer] [facility] Nitrite Urine Negative Negative 06/27/2024 8:29 AM [employer] [facility] Leukocyte Esterase Urine Negative Negative 06/27/2024 8:29 AM [employer] [facility] RBC Urine 0 <=2 /HPF 06/27/2024 8:29 AM [employer] [facility] WBC Urine 0 <=5 /HPF 06/27/2024 8:29 AM [employer] [facility] Squamous Epithelials Urine 2(H) <=1 /HPF 06/27/2024 8:29 AM [employer] [facility] Urine URINE SPECIMEN OBTAINED BY CLEAN CATCH PROCEDURE / Unknown Non-blood Collection / Unknown 06/27/2024 8:12 AM [employer] 06/27/2024 8:18 AM [employer] Narrative [facility] - 06/27/2024 8:29 AM [employer] Urine Culture not indicated Polly Allen MD LAB - URINE ORDER SYD Final Result [facility] [place] [facility] [address] [facility], [address] [place] [phone] * Adult Type and Screen (06/27/2024 5:57 AM [employer]) Only the most recent of5 resultswithin the time period is included. ABO/RH(D) A POS 06/27/2024 11:54 AM [employer] [facility] Antibody Screen Negative Negative 06/27/2024 11:54 AM [employer] [facility] Comment:Current antibody scr een is negative. Patient has a history of antibody(ies). A delay in compatible red blood cells may occur. SPECIMEN EXPIRATION DATE [id number] 06/27/2024 11:54 AM [employer] [facility] Blood BLOOD SPECIMEN / Unknown Venipuncture / Unknown 06/27/2024 5:57 AM [employer] 06/27/2024 6:07 AM [employer] Polly Allen MD LAB - BLOOD BANK TEST ORDER Final Result Performing Organization Address City/[facility]/ZIP Co de Phone Number [facility] [address] [place] [address] * (ABNORMAL) Hepatic panel (06/27/2024 5:57 AM [employer]) Only the most recent of5 resultswithin the time period is included. Protein Total 7.4 6.4 - 8.3 g/dL 06/27/2024 9:06 AM [employer] [facility] Albumin 4.0 3.5 - 5.2 g/dL 06/27/2024 9:06 AM [employer] [facility] Bilirubin Total 1.2 <=1.2 mg/dL 06/27/2024 9:06 AM [employer] [facility] Alkaline Phosphatase 113 40 - 150 U/L 06/27/2024 9:06 AM [employer] [facility] AST 41 0 - 45 U/L 06/27/2024 9:06 AM [employer] [facility] ALT 35 0 - 50 U/L 06/27/2024 9:06 AM [employer] [facility] Bilirubin Direct 0.45(H) 0.00 - 0.30 mg/dL 06/27/2024 9:06 AM [employer] [facility] Blood BLOOD SPECIMEN / Unknown Venipuncture / Unknown 06/27/2024 5:57 AM [employer] 06/27/2024 6:06 AM [employer] us Polly Allen MD LAB - BLOOD ORDER SYD Final Result [facility] [place] [facility] [address] [facility], [address] [place] [phone] * (ABNORMAL) Basic metabolic panel (06/27/2024 5:57 AM [employer]) Only the most recent of23 resultswithin the time period is included. Sodium 136 135 - 145 mmol/L 06/27/2024 7:08 AM [employer] [facility] Potassium 4.2 3.4 - 5.3 mmol/L 06/27/2024 7:08 AM [employer] [facility] Chloride 104 98 - 107 mmol/L 06/27/2024 7:08 AM [employer] [facility] Carbon Dioxide (CO2) 23 22 - 29 mmol/L 06/27/2024 7:08 AM [employer] [facility] Anion Gap 9 7 - 15 mmol/L 06/27/2024 7:08 AM [employer] [facility] Urea Nitrogen 8.0 6.0 - 20.0 mg/dL 06/27/2024 7:08 AM [employer] [facility] Creatinine 0.74 0.51 - 0.95 mg/dL 06/27/2024 7:08 AM [employer] [facility] GFR Estimate >90 >60 mL/min/1.7 3m2 06/27/2024 7:08 AM [employer] [facility] Comment:eGFR calculated 2020 CKD-EPI equation. Calcium 8.7(L) 8.8 - 10.4 mg/dL 06/27/2024 7:08 AM [employer] [facility] Glucose 90 70 - 99 mg/dL 06/27/2024 7:08 AM [employer] [facility] Blood BLOOD SPECIMEN / Unknown Venipuncture / Unknown 06/27/2024 5:57 AM [employer] 06/27/2024 6:06 AM [employer] us Jermaine Quispe MD LAB - BLOOD ORDERABLES Final Res ult [facility] [place] [facility] [address] [facility], [address] [place] [address] * (ABNORMAL) CBC with platelets (06/27/2024 5:57 AM [employer]) Only the most recent of6 resultswithin the time period is included. WBC Count 17.8(H) 4.0 - 11.0 10e3/uL 06/27/2024 6:16 AM [employer] [facility] RBC Count 2.60(L) 3.80 - 5.20 10e6/uL 06/27/2024 6:16 AM [employer] [facility] Hemoglobin 8.5(L) 11.7 - 15.7 g/dL 06/27/2024 6:16 AM [employer] [facility] Hematocrit 25.9(L) 35.0 - 47.0 % 06/27/2024 6:16 AM [employer] [facility] MCV 100 78 - 100 fL 06/27/2024 6:16 AM [employer] [facility] MCH 32.7 26.5 - 33.0 pg 06/27/2024 6:16 AM [employer] [facility] MCHC 32.8 31.5 - 36.5 g/dL 06/27/2024 6:16 AM [employer] [facility] RDW 19.2(H) 10.0 - 15.0 % 06/27/2024 6:16 AM [employer] [facility] Platelet Count 469(H) 150 - 450 10e3/uL 06/27/2024 6:16 AM [employer] [facility] Blood BLOOD SPECIMEN / Unknown Venipuncture / Unknown 06/27/2024 5:57 AM [employer] 06/27/2024 6:07 AM [employer] us Jermaine Quispe MD LAB - BLOOD ORDERABLES Final Res ult Performing Organization Address City/[facility]/ZIP Co de Phone Number LABORATORY [facility] Lab [address] [place] [address], [address] * (ABNORMAL) Erythrocyte sedimentation rate auto (06/26/2024 6:46 PM [employer]) Erythrocyte Sedimentation Rate 24(H) 0 - 20 mm/hr 06/26/2024 7:28 PM [employer] LABORATORY Blood BLOOD SPECIMEN / Unknown Venipuncture / Unknown 06/26/2024 6:46 PM [employer] 06/26/2024 7:14 PM [employer] us Jermaine Quispe MD LAB - BLOOD ORDERABLES Final Res ult Performing Organization Address City/[facility] Co de Phone Number LABORATORY [facility] Lab [address] [place] [address], [facility] [address] * EKG 12 lead (06/26/2024 5:19 PM [employer]) Only the most recent of4 resultswithin the time period is included. Systolic Blood Pressure mmHg RADIOLOGY RESULTS Diastolic Blood Pressure mmHg RADIOLOGY RESULTS Ventricular Rate 79 BPM RAD IOLOGY RESULTS Atrial Rate 79 BPM RADIOLOG Y RESULTS MA Interval 160 ms RADIOLOG Y RESULTS QRS Duration 78 ms RADIOLO GY RESULTS QT 380 ms RADIOLOGY RESULTS QTc 435 ms RADIOLOGY RESULTS P [place] 39 degrees RADIOLOGY RESULTS R AXIS 42 degrees RADIOLOGY RESULTS T [place] 18 degrees RADIOLOGY RESULTS Interpretation ECG Sinus rhythm Normal ECG Unconfirmed report - interpretation of this ECG is computer generated - see medical record for final interpretation Confirmed by - EMERGENCY ROOM, PHYSICIAN ([id number]), social media editor Woody Patten ([id number]) on 06/27/2024 6:46:34 AM RADIOLOGY RESULTS 06/26/2024 5:19 PM [employer] 06/27/2024 6:46 AM [employer] us Jayden Adhikari MD ECG ORDERABLES Edited Resul t - Final RADIOLOGY RESULTS * CT Chest Pulmonary Embolism w Contrast (06/26/2024 4:15 PM [employer]) Only the most recent of3 resultswithin the time period is included. 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 No definitive evidence of right heart strain. Some bony changes again noted of sickle cell in the thoracic spine and humeral heads typical of microvascular insults related to sickle cell. EVY FUENTES MD Narrative 06/26/2024 4:29 [address] [address] chest pulmonary angiogram with contrast INDICATION: [...] sickle cell. EVY FUENTES MD us Jayden Adhikari MD IMG CT ORDERABLES Final Resu lt * Chest XR, PA & LAT (06/26/2024 3:13 PM [employer]) Only the most recent of9 resultswithin the time period is included. Anatomical Region Laterality Modality Chest Digital Radiogra phy Impressions 06/26/2024 3:24 PM [employer] IMPRESSION: 1. Stable appearance of right middle lobe opacities which may represent infiltrate versus atelectasis. 2. No new or worsening cardiopulmonary abnormality. I have personally reviewed the examination and initial interpretation and I agree with the findings. EVY FUENTES MD Narrative 06/26/2024 3:24 PM [employer] EXAM: XR CHEST 2 VIEWS 06/26/2024 3:13 [...] findings. EVY FUENTES MD Jayden Adhikari MD [facility] ORDER SYD Final Result * Troponin T, High Sensitivity (06/26/2024 2:42 PM [employer]) Only the most recent of12 resultswithin the time period is included. Pathologist [facility] Troponin T, High Sensitivity <6 <=14 ng/L 06/26/2024 3:24 PM [employer] [facility] Comment: Either a High Sensitivity [...] Unknown Venipuncture / Unknown 06/26/2024 2:42 PM [employer] 06/26/2024 2:52 PM [employer] us Jayden Adhikari MD LAB - BLOOD ORDERABLES Final Result LABORATORY [facility] Lab [address] [facility], [address] [place] [address] * Procalcitonin (06/26/2024 2:42 PM [employer]) Procalcitonin 0.03 <0.50 ng/mL 06/26/2024 5:02 PM [employer] [facility] Comment: Interpretation and Recommendations <0.5 [...] See Procalcitonin Guidance document for more details. [email or web address] Factors that may affect PCT levels (not [...] Unknown Venipuncture / Unknown 06/26/2024 2:42 PM [employer] 06/26/2024 2:52 PM [employer] Jayden Adhikari MD LAB - BLOOD ORDERABLES Final Result Performing Organization Address City/[facility] de Phone Number LABORATORY [facility] [place] [facility] Lab [address] [facility], [address] * HCG qualitative (blood) (06/26/2024 2:42 PM [employer]) Only the most recent of7 resultswithin the time period is included. [facility] hCG Serum Qualitative Negative Negative JARET 06/26/2024 3:04 PM [employer] [facility] LAB[facility]ORY Comment:This test is for scr eening purposes. Results should be interpreted along with the clinical picture. Confirmation testing is available if warranted by ordering [id number], HCG Quantitative . Blood BLOOD SPECIMEN / Unknown Venipuncture / Unknown 06/26/2024 2:42 PM [employer] 06/26/2024 2:50 PM [employer] Jayden Adhikari MD LAB - BLOOD ORDERABLES Final Result Performing Organization Address [facility] de Phone Number LABORATORY [facility] Lab [address] [facility], [address] * (ABNORMAL) D dimer quantitative (06/26/2024 2:42 PM [employer]) Only the most recent of2 resultswithin the time period is included. Pathologist [facility] D-Dimer Quantitative 0.69(H) 0.00 - 0.50 ug/mL FEU 06/26/2024 3:13 PM [employer] [facility] Blood BLOOD SPECIMEN / Unknown Venipuncture / Unknown 06/26/2024 2:42 PM [employer] 06/26/2024 2:52 PM [employer] Narrative [facility] - 06/26/2024 3:13 PM [employer] This D-dimer assay is intended for use in conjunction with a clinical pretest probability assessment model to exclude pulmonary embolism (PE) and deep venous thrombosis (DVT) in outpatients suspected of PE or DVT. The cut-off value is 0.50 ug/mL FEU. Jayden Adhikari MD LAB - BLOOD ORDERABLES Final Result Performing Organization Address City/[facility]/ZIP Co de Phone Number LABORATORY [facility] [place] [facility] [address] [facility], [address] * CRP inflammation (06/26/2024 2:42 PM [employer]) [facility] CRP Inflammation 4.22 <5.00 mg/L 06/27/19 5:02 PM [employer] LABORATORY Blood BLOOD SPECIMEN / Unknown Venipuncture / Unknown 06/26/2024 2:42 PM [employer] 06/26/2024 2:52 PM [employer] Jayden Adhikari MD LAB - BLOOD ORDERABLES Final Result Performing Organization Address [facility] de Phone Number LABORATORY [facility] Lab [address] [facility], [address] * (ABNORMAL) INR (06/24/2024 10:11 AM [employer]) Only the most recent of3 resultswithin the time period is included. [facility] INR 1.45(H) 0.85 - 1.15 06/24/2024 10:54 AM [employer] LABORATORY Blood BLOOD SPECIMEN / Unknown Venipuncture / Unknown 06/24/2024 10:11 AM [employer] 06/24/2024 10:21 AM [employer] Result [facility] Richar Mahajan MD LAB - BLOOD ORDERABLES Liss l Result Performing Organization Address [facility]/ZIP Co de Phone Number LABORATORY [facility] [place] [facility] [address] [facility], [address] * Partial thromboplastin time (06/24/2024 10:11 AM [employer]) [facility] aPTT 32 22 - 38 Seconds 06/24/2024 10:55 AM [employer] [facility] Blood BLOOD SPECIMEN / Unknown Venipuncture / Unknown 06/24/2024 10:11 AM [employer] 06/24/2024 10:21 AM [employer] Richar Mahajan MD LAB - BLOOD ORDERABLES Liss l Result U LABORATORY [facility] Lab [address] [facility], [address] * Magnesium (06/24/2024 10:11 AM [employer]) [facility] Magnesium 2.1 1.7 - 2.3 mg/dL 06/24/2024 10:51 AM [employer] [facility] Blood BLOOD SPECIMEN / Unknown Venipuncture / Unknown 06/24/2024 10:11 AM [employer] 06/24/2024 10:21 AM [employer] Richar Mahajan MD LAB - BLOOD ORDERABLES Liss l Result Performing Organization Address City/[facility]/ZIP Co de Phone Number U LABORATORY [facility] Lab [address] [place] [address], [address] * (ABNORMAL) Manual Differential (06/23/2024 6:22 PM [employer]) Only the most recent of2 resultswithin the time period is included. [facility] % Neutrophils 73 % 06/23/2024 7:05 PM [employer] [facility] % Lymphocytes 24 % 06/23/2024 7:05 PM [employer] [facility] % Monocytes 2 % 06/23/2024 7:05 PM [employer] [facility] % Eosinophils 0 % 06/23/2024 7:05 PM [employer] [facility] % Basophils 2 % 06/23/2024 7:05 PM [employer] [facility] NRBCs per 100 WBC 12(H) <=0 % 06/23/2024 7:05 PM [employer] [facility] Absolute Neutrophils 7.2 1.6 - 8.3 10e3/uL 06/23/2024 7:05 PM [employer] [facility] Absolute Lymphocytes 2.3 0.8 - 5.3 10e3/uL 06/23/2024 7:05 PM [employer] [facility] Absolute Monocytes 0.2 0.0 - 1.3 10e3/uL 06/23/2024 7:05 PM [employer] [facility] Absolute Eosinophils 0.0 0.0 - 0.7 10e3/uL 06/23/2024 7:05 PM [employer] [facility] Absolute Basophils 0.2 0.0 - 0.2 10e3/uL 06/23/2024 7:05 PM [employer] [facility] Absolute NRBCs 1.2(H) <=0.0 10e3/uL 025 7:05 PM [employer] [facility] RBC Morphology Confirmed RBC Indices 06/23/2024 7:05 PM [employer] [facility] Platelet Assessment Automated Count Confirmed. Platelet morphology is normal. Automated Count Confirmed. Platelet morphology is normal. 06/23/2024 7:05 PM [employer] [facility] Polychromasia Slight(A) None Seen 06/23/2024 7:05 PM [employer] [facility] Sickle Cells Slight(A) None Seen 06/23/2024 7:05 PM [employer] [facility] Target Cells Slight(A) None Seen 06/23/2024 7:05 PM [employer] [facility] Blood BLOOD SPECIMEN / Unknown Venipuncture / Unknown 06/23/2024 6:22 PM [employer] 06/23/2024 6:34 PM [employer] us Dayna Crane MD LAB - BLOOD ORDERABLES Final Re sult [facility] [place] [facility] [address] [facility], [address] [place] [address] * (ABNORMAL) Platelet count (06/19/2024 12:17 AM [employer]) [facility] Platelet Count 467(H) 150 - 450 10e3/uL 06/19/2024 12:44 AM [employer] [facility] Blood BLOOD SPECIMEN / Unknown Venipuncture / Unknown 06/19/2024 12:17 AM [employer] 06/19/2024 12:26 AM [employer] Laquita Kelley MD LAB - BLOOD ORDERABLES Final Re sult U LABORATORY [facility] [place] [facility] [address] [facility], [address] [phone] * Creatinine (06/19/2024 12:17 AM [employer]) Creatinine 0.72 0.51 - 0.95 mg/dL 06/19/2024 12:51 AM [employer] [facility] GFR Estimate >90 >60 mL/min/1.7 3m2 06/19/2024 12:51 AM [employer] [facility] Comment:eGFR calculated 2020 CKD-EPI equation. Blood BLOOD SPECIMEN / Unknown Venipuncture / Unknown 06/19/2024 12:17 AM [employer] 06/19/2024 12:26 AM [employer] Laquita Kelley MD LAB - BLOOD ORDERABLES Final Re sult Performing Organization Address City/[facility] Co de Phone Number U LABORATORY [facility] [place] [facility] [address] [facility], [address] [phone] * Transfuse red blood cells (unit), Sickle Cell (Hgb S) Negative (06/17/2024 2:33 PM [employer]) Only the most recent of2 resultswithin the time period is included. Drake Nina MD BLOOD TRANSFUSION ORDERABLES Final Result * Prepare red blood cells (unit) (06/17/2024 9:12 AM [employer]) Only the most recent of2 resultswithin the time period is included. Blood Component Type Red Blood Cells [facility] Product Code [id number] [facility] Unit Status Transfused [facility] Unit Number [id number] U[facility] B LOOD BANK CROSSMATCH COMPATIBLE [facility] CODING SYSTEM [id number] [facility] BLO OD BANK ISSUE DATE AND TIME [id number] [facility] BLOOD BANK UNIT ABO/RH A+ UU BLOOD BANK UNIT TYPE ISBT 6200 UU BL OOD BANK 06/17/2024 9:12 AM [employer] us Drake Nina MD BLOOD BANK PRODUCT ORDERABLES Final Result Performing Organization Address City/[facility]/ZIP Co de Phone Number BLOOD BANK [address] [place] [address] * (ABNORMAL) Transferrin (06/17/2024 6:16 AM [employer]) Transferrin 100.0(L) 200.0 - 360.0 mg/dL 06/17/2024 9:36 AM [employer] [facility] Blood VENOUS LINE / Unknown IVAD (Port) / Unknown 06/17/2024 6:16 AM [employer] 06/17/2024 6:27 AM [employer] us Drake Nina MD LAB - BLOOD ORDERABLES Final Result Performing Organization Address [facility] Co de Phone Number LAB[facility]ATORY [facility] [place] [address] [facility], [address] [phone] * Iron and iron binding capacity (06/17/2024 6:16 AM [employer]) Iron 123 37 - 145 ug/dL 06/17/2024 10:02 AM [employer] [facility] Iron Binding Capacity 06/17/2024 10:02 AM [employer] [facility] Comment:Unable to calculate: UIBC or Iron value is outside detectable level. Iron Sat Index 06/17/2024 10:02 AM [employer] [facility] Comment:Unable to calculate: UIBC or Iron value is outside detectable level. Blood VENOUS LINE / Unknown IVAD (Port) / Unknown 06/17/2024 6:16 AM [employer] 06/17/2024 6:27 AM [employer] us Drake Nina MD LAB - BLOOD ORDERABLES Final Result Performing Organization Address City/[facility]/ZIP Co de Phone Number [facility]ORY [facility] [place] [address] [facility], [address] [phone] * (ABNORMAL) Prolactin (06/16/2024 5:37 PM [employer]) Prolactin 55(H) 5 - 23 ng/mL 06/16/2024 6:24 PM [employer] [facility] Blood BLOOD SPECIMEN / Unknown Venipuncture / Unknown 06/16/2024 5:37 PM [employer] 06/16/2024 5:46 PM [employer] Varghesegiulia Schofield MD LAB - BLOOD ORDERABLE S Final Result [facility] [place] [facility] [address] [facility], [address] [place] [address] * Blood Culture Peripheral Blood (06/16/2024 5:37 PM [employer]) Only the most recent of3 resultswithin the time period is included. Culture No Growth 06/21/2024 6:47 PM [employer] [facility] Blood BLOOD SPECIMEN / Unknown Venipuncture / Unknown 06/16/2024 5:37 PM [employer] 06/16/2024 5:47 PM [employer] Abimael Schofield MD LAB - MICRO GENERAL O RDERABLES Final Result [facility]ORAT[facility] Inf. Diseases Diag. Lab [address] [facility], [address] [place] [address] * XR Chest Port 1 View (06/14/2024 8:46 AM [employer]) Anatomical Region Laterality Modality Chest Digital Radiogra phy Impressions 06/14/2024 8:59 AM [employer] Impression: Further increase in ill-defined opacity projecting over the right lower lung concerning for pneumonia. MARIO ALBERTO BLACKWOOD MD Narrative 06/14/2024 8:59 AM [employer] Exam: XR CHEST PORT 1 VIEW, 06/14/2024 [...] concerning for pneumonia. MARIO ALBERTO BLACKWOOD MD [facility] Marly Allen MD IMG DIAGNOSTIC IM AGING ORDERABLES Final Result * Respiratory Panel PCR (06/12/2024 9:34 PM [employer]) Adenovirus Not Detected Not Detected 06/12/2024 11:53 PM [employer] [facility] Coronavirus Not Detected Not Detected 06/12/2024 11:53 PM [employer] [facility] Comment:This test detects Co ronavirus 229E, HKU1, NL63 and OC43 but does not distinguish between them. It does not detect MERS ( Respiratory Syndrome), SARS (Severe Acute Respiratory Syndrome) or 2019-nCoV (Novel 2019) Coronavirus. Human Metapneumovirus Not Detected Not Detected 06/12/2024 11:53 PM [employer] [facility] Human Rhin/Enterovirus Not Detected Not Detected 06/12/2024 11:53 PM [employer] [facility] Influenza A Not Detected Not Detected 06/12/2024 11:53 PM [employer] [facility] Influenza A, H1 Not Detected Not Detected 06/12/2024 11:53 PM [employer] [facility] Influenza A 2009 H1N1 Not Detected Not Detected 06/12/2024 11:53 PM [employer] [facility] Influenza A, H3 Not Detected Not Detected 06/12/2024 11:53 PM [employer] [facility] Influenza B Not Detected Not Detected 06/12/2024 11:53 PM [employer] [facility] Parainfluenza Virus 1 Not Detected Not Detected 06/12/2024 11:53 PM [employer] [facility] Parainfluenza Virus 2 Not Detected Not Detected 06/12/2024 11:53 PM [employer] [facility] Parainfluenza Virus 3 Not Detected Not Detected 06/12/2024 11:53 PM [employer] [facility] Parainfluenza Virus 4 Not Detected Not Detected 06/12/2024 11:53 PM [employer] [facility] Respiratory Syncytial Virus A Not Detected Not Detected 06/12/2024 11:53 PM [employer] [facility] Respiratory Syncytial Virus B Not Detected Not Detected 06/12/2024 11:53 PM [employer] [facility] Chlamydia Pneumoniae Not Detected Not Detected 06/12/2024 11:53 PM [employer] [facility] Mycoplasma Pneumoniae Not Detected Not Detected 06/12/2024 11:53 PM [employer] [facility] Swab NASOPHARYNGEAL STRUCTURE / Unknown Non-blood Collection / Unknown 06/12/2024 9:34 PM [employer] 06/12/2024 9:47 PM [employer] Narrative [facility] - 06/12/2024 11:53 PM [employer]ED [employer] The ePlex Respiratory Panel is a qualitative nucleic acid, multiplex, in vitro diagnostic test for the simultaneous detection and identification of multiple respiratory viral and bacterial nucleic acids in nasopharyngeal swabs collected in viral transport media from individual exhibiting signs and symptoms of respiratory infection. The assay has received FDA approval for the testing of nasopharyngeal (SERVICE DIRECTOR) swabs only. This test is used for clinical purposes and should not be regarded as investigational or for research. This laboratory is certified under the Clinical Laboratory Improvement Amendments of 1988 (CLIA-88) as qualified to perform high complexity clinical laboratory testing. us Abdelrahman Goddard MD LAB - MICRO GENERAL ORDERABLES Final Result [facility] Inf. Diseases Diag. Lab [address] [facility], [address] [place] [address], [facility] * (ABNORMAL) Blood gas venous (06/12/2024 7:17 PM [employer]) pH Venous 7.38 7.32 - 7.43 06/12/2024 7:40 PM [employer] [facility] pCO2 Venous 42 40 - 50 mm Hg 06/12/2024 7:40 PM [employer] [facility] pO2 Venous 35 25 - 47 mm Hg 06/12/2024 7:40 PM [employer] [facility] Bicarbonate Venous 24 21 - 28 mmol/L 06/12/2024 7:40 PM [employer] [facility] Base Excess/Deficit Venous -0.9 -3.0 - 3.0 mmol/L 06/12/2024 7:40 PM [employer] [facility] FIO2 21 JARET 06/12/2024 7:40 PM [employer] [facility] Oxyhemoglobin Venous 61(L) 70 - 75 % 06/12/2024 7:40 PM [employer] [facility] O2 Sat, Venous 63.9(L) 70.0 - 75.0 % 06/12/2024 7:40 PM [employer] [facility] Blood, venous VENOUS LINE / Unknown Venipuncture / Unknown 06/12/2024 7:17 PM [employer] 06/12/2024 7:30 PM [employer] Narrative [facility] - 06/12/2024 7:40 PM [employer] In healthy individuals, oxyhemoglobin (O2Hb) and oxygen saturation (SO2) are approximately equal. In the presence of dyshemoglobins, oxyhemoglobin can be considerably lower than oxygen saturation. us Abdelrahman Goddard MD LAB - BLOOD ORDERABLES Final R esult [facility] [place] [facility] [address] [facility], [address] [place] [phone] * ECG 12-LEAD WITH MUSE (LHE) (06/11/2024 9:04 PM [employer]) Only the most recent of14 resultswithin the time period is included. Systolic Blood Pressure mmHg RADIOLOGY RESULTS Diastolic Blood Pressure mmHg RADIOLOGY RESULTS Ventricular Rate 102 BPM RAD IOLOGY RESULTS Atrial Rate 102 BPM RADIOLOG Y RESULTS MA Interval 158 ms RADIOLOG Y RESULTS QRS Duration 78 ms RADIOLO GY RESULTS QT 348 ms RADIOLOGY RESULTS QTc 453 ms RADIOLOGY RESULTS P [place] 39 degrees RADIOLOGY RESULTS R AXIS 66 degrees RADIOLOGY RESULTS T [place] 33 degrees RADIOLOGY RESULTS Interpretation ECG Sinus tachycardia Nonspecific T wave abnormality Abnormal ECG When compared with ECG of 05-Jun-2024 11:40, No significant change was found Confirmed by SEE ED PROVIDER NOTE FOR, ECG INTERPRETATION ([id number]), social media editor SELMA GARRISON ([id number]) on 06/11/2024 9:05:27 PM RADIOLOGY RESULTS 06/11/2024 9:04 PM [employer] 06/11/2024 9:05 PM [employer] us Deshawn Arredondo MD ECG ORDERABLES Edited Resu lt - Final RADIOLOGY RESULTS * HGB Eval Reflex to ELP or RBC Solubility (05/29/2024 11:23 AM [employer]) Alpha Globin (HBA1 and HBA2) DD Bill Billed 05/31/2024 2:46 PM [employer] [facility] Comment: Performed By: [employer] [address] [place] [address] Software Engineer Developer: Devon Healy MD, PhD CLIA Number: [id number] Blood VENOUS LINE / Unknown IVAD (Port) / Unknown 05/29/2024 11:23 AM [employer] 05/29/2024 11:30 AM [employer] us Case Samuel MD LAB CHARGE PERFORMABLES F inal Result Performing Organization Address City/[facility] Co de Phone Number [facility] [employer] [address] [place] [phone] [phone] * Bill Only- Sickle Solubility Bill (05/29/2024 11:23 AM [employer]) Sickle Solubility Reflex Bill Billed 05/31/2024 2:46 PM [employer] [facility] Comment: Performed By: [employer] [address] [place] [address] Software Engineer Developer: Devon Healy MD, PhD CLIA Number: [id number] Blood VENOUS LINE / Unknown IVAD (Port) / Unknown 05/29/2024 11:23 AM [employer] 05/29/2024 11:30 AM [employer] us Case Samuel MD LAB CHARGE PERFORMABLES F inal Result [facility] [employer] [facility] [address] [place] [address], [facility] [phone] * Genotype Red Blood Cell (05/29/2024 11:23 AM P[employer]ED [employer]) [facility] See Scanned Result GENOTYPE RED BLOOD CELL-Scanned 05/31/2024 10:16 AM [employer] [facility] Blood VENOUS LINE / Unknown IVAD (Port) / Unknown 05/29/2024 11:23 AM [employer] 05/29/2024 11:29 AM [employer] us Case Samuel MD LAB - BLOOD ORDERABLES Fi nal Result Performing Organization Address City/[facility]/ZIP Co de Phone Number [facility] Blood [facility] [address] [place] [address], [facility] [phone] * (ABNORMAL) HGB Eval Reflex to ELP or RBC Solubility (05/29/2024 11:23 AM P[employer]) [facility] Hemoglobin A 15.0(L) 95.0 - 97.9 % 05/31/2024 2:46 PM [employer] [facility] Hemoglobin A2 3.0 2.0 - 3.5 % 05/31/2024 2:46 PM [employer] [facility] Hemoglobin F 10.8(H) 0.0 - 2.1 % 05/31/2024 2:46 PM [employer] [facility] Hemoglobin S 71.2(H) 0.0 - 0.0 % 05/31/2024 2:46 PM [employer] [facility] Hemoglobin C 0.0 0.0 - 0.0 % 05/31/2024 2:46 PM [employer] [facility] Hemoglobin E 0.0 0.0 - 0.0 % 05/31/2024 2:46 PM [employer] [facility] Hemoglobin - Other 0.0 0.0 - 0.0 % 05/31/2024 2:46 PM [employer] [facility] Hemoglobin Evaluation See Note 05/31/2024 2:46 PM P[employer]ED [employer] [facility] Comment: Impression: Hb S present Laboratory findings [...] by Alpha Globin (HBA1 and HBA2) Deletion/Duplication ([facility] test #[id number]) should be considered. Hb S/beta-plus thalassemia is typically characterized by more Hb S than Hb A with the presence of microcytosis. If microcytosis is present and Hb S/beta-plus thalassemia is suspected, Beta Globin (HBB) Sequencing ([facility] test #[id number]) is suggested. Hemoglobin analysis should be offered [...] developed and its performance characteristics determined by [employer]. It has not been cleared or approved by the U.S. Food and Drug Administration. This test was performed in a CLIA-certified laboratory and is intended for clinical purposes. Sickle Cell Solubility Reflex Positive(A) 05/31/2024 2:46 PM [facility] Comment: INTERPRETIVE INFORMATION: Sickle Cell Solubility Reflex Not Performed: Solubility testing for Hemoglobin S not indicated. 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 Additional charges apply. Conf Previous: Positive for Hemoglobin S by HPLC. Solubility testing performed previously and not repeated with this submission. Hgb Capillary Electrophoresis Reflex Performed 05/31/2024 2:46 PM [employer] [facility] Comment: INTERPRETIVE INFORMATION: Hgb Capillary Electrophoresis Reflex Not Performed: Confirmation by Capillary Electrophoresis not indicated. Performed: Results confirmed by Capillary Electrophoresis. Additional charges apply. Conf Previous: Capillary Electrophoresis confirmation performed as part of a previous submission. Confirmation not repeated with this submission. Performed By: [employer] [address] [place] [address] Software Engineer Developer: Devon Healy MD, PhD CLIA Number: [id number] Blood VENOUS LINE / Unknown IVAD (Port) / Unknown 05/29/2024 11:23 AM [employer] 05/29/2024 11:30 AM [employer] Case Samuel MD LAB - BLOOD ORDERABLES Fi nal Result Performing Organization Address City/[facility]/ZIP Co de Phone Number [facility] [address] [place] [phone], [facility] [phone] * (ABNORMAL) Ferritin (05/29/2024 11:23 AM [employer]) Ferritin 1,559(H) 6 - 175 ng/mL 05/29/2024 12:43 [address] [employer] WALL FOREMAN [facility] - CORE LAB Blood VENOUS LINE / Unknown IVAD (Port) / Unknown 05/29/2024 11:23 AM [employer] 05/29/2024 11:29 AM [employer] Case Samuel MD LAB - BLOOD ORDERABLES Fi nal Result [facility] - CORE LAB [facility] [address] 1[address] Floor [place] [address] * Urine Culture (05/29/2024 11:23 AM POURED [employer]ALL [employer]EM[employer]) Culture <10,000 CFU/mL Mixture of Urogenital Vickie 05/30/2024 9:45 AM [employer]ALL [employer]EM[employer] [facility] Urine URINE SPECIMEN OBTAINED BY CLEAN CATCH PROCEDURE / Unknown Non-blood Collection / Unknown 05/29/2024 11:23 AM [employer] 05/29/2024 11:41 AM [employer]ALL [employer] Case Samuel MD LAB - MICRO GENERAL ORDER SYD Final Result [facility] Inf. Diseases Diag. Lab [address] [facility], [address] [place] [address] * (ABNORMAL) Manual Differential (05/29/2024 12:53 AM [employer]EM[employer]) Only the most recent of7 resultswithin the time period is included. % Neutrophils 54 % JARET 05/29/2024 1:58 AM [facility] % Lymphocytes 34 % JARET 05/29/2024 1:58 AM [facility] % Monocytes 10 % JARET 05/29/2024 1:58 AM [facility] % Eosinophils 1 % JARET 05/29/2024 1:58 AM [facility] % Basophils 1 % JARET 05/29/2024 1:58 AM [facility] Absolute Neutrophils 8.4(H) 1.6 - 8.3 10e3/uL JARET 05/29/2024 1:58 AM [facility] Absolute Lymphocytes 5.3 0.8 - 5.3 10e3/uL JARET 05/29/2024 1:58 AM [facility] Absolute Monocytes 1.6(H) 0.0 - 1.3 10e3/uL JARET 05/29/2024 1:58 AM [facility] Absolute Eosinophils 0.2 0.0 - 0.7 10e3/uL JARET 05/29/2024 1:58 AM [facility] Absolute Basophils 0.2 0.0 - 0.2 10e3/uL JARET 05/29/2024 1:58 AM [facility] NRBCs per 100 WBC 3 % JARET 05/29/2024 1:58 AM [facility] Absolute NRBCs 0.5 10e3/uL JARET 05/29/2024 1:58 AM [facility] RBC Morphology Confirmed RBC Indices JARET 05/29/2024 1:58 AM [facility] Platelet Assessment Automated Count Confirmed. Platelet morphology is normal. Automated Count Confirmed. Platelet morphology is normal. JARET 05/29/2024 1:58 AM [facility] Polychromasia Moderate(A) None Seen JARET 05/29/2024 1:58 AM [facility] Sickle Cells Moderate(A) None Seen JARET 05/29/2024 1:58 AM [employer]ALL [employer]EM[employer] [facility] Blood VENOUS LINE / Unknown Venipuncture / Unknown 05/29/2024 12:53 AM [employer] 05/29/2024 12:58 AM [employer] us Lenin Smith MD LAB - BLOOD ORDERABLES Final Result [facility] [address] [place] [address], [facility] * IR Procedure Note (05/25/2024 2:54 PM POURED WALL FOREM[employer]) Narrative Myron Michel MD - 05/25/2024 2:54 PM [employer] Myron Michel MD 05/25/2024 2:55 PM [facility] Procedure: IR Procedure Note Date/Time: 05/25/2024 2:54 PM Performed by: Myron Michel MD Authorized by: Myron iMchel MD IR Fellow Physician: Myron Michel Other(s) [...] the procedure a time out was called Jeffrey Protocol: the Joint Commission Jeffrey Protocol was followed Preparation: Patient was prepped and draped in usual sterile fashion ANESTHESIA Anesthesia: Local infiltration Local Anesthetic: Lidocaine 1% without epinephrine SEDATION Patient Sedated: Yes Sedation Type: Moderate (conscious) sedation Sedation: Fentanyl and midazolam Vital signs: Vital signs monitored during sedation See dictated procedure note for full details. Findings: Successful bilateral port placement apheresis on the right, 6 micronesian smart port on the left Specimens: none Procedural Complications: None Condition: Stable Plan: 1 hour bedrest then okay to discharge PROCEDURE Describe Procedure: Successful bilateral port placement apheresis on the right, 6 micronesian smart port on the left Patient Tolerance: Patient tolerated the procedure well with no immediate complications Length of time physician/provider present for 1:1 monitoring during sedation: 83-97 min us Myron Michel MD PROCEDURE/MINOR SURGICAL ORDERA BLES Final Result * IR Chest Port Placement > 5 Yrs of Age (05/25/2024 2:47 PM [employer]ALL [employer]EM[employer]) Only the most recent of2 resultswithin the time period is included. Anatomical Region Laterality Modality Chest Radio Fluoroscop y Impressions 05/25/2024 5:26 PM [employer] IMPRESSION: Insertion of right-sided apheresis chest port, [...] mg Versed Sedation time: 97 minutes ATTENDING [id number] SEDATION TIME: less than 5 minutes. Access [...] placed: BD PowerFlow apheresis port Catheter size (Comoran): 9.6 Lumens: Single-lumen Power injectable: Yes Catheter [...] JASWINDER COOPER MD Narrative 05/25/2024 5:26 PM [employer] PROCEDURE: Venous port placement Procedural Personnel Attending [...] mg Versed Sedation time: 97 minutes ATTENDING [id number] SEDATION TIME: less than 5 minutes. Access [...] placed: BD PowerFlow apheresis port Catheter size (Comoran): 9.6 Lumens: Single-lumen Power injectable: Yes Catheter [...] * HCG qualitative urine (05/25/2024 12:03 PM P[employer]EM[employer]) Only the most recent of2 resultswithin the time period is included. hCG Urine Qualitative Negative Negative JARET 05/25/2024 12:34 PM [employer]ALL [employer] [facility] Comment:This test is for scr eening purposes. Results should be interpreted along with the clinical picture. Confirmation testing is available if warranted by ordering [id number], HCG Quantitative . Urine MID-STREAM URINE SPECIMEN / Unknown Non-blood Collection / Unknown 05/25/2024 12:03 PM [employer] 05/25/2024 12:19 PM [employer] Jaswinder Cooper MD LAB - URINE ORDERABLES Liss l Result LAB[facility] [address] [facility], [address] [place] [address], [facility] * N terminal pro BNP outpatient (05/23/2024 9:02 PM P[employer]ED [employer]ALL [employer]EM[employer]) N Terminal Pro BNP Outpatient 74 0 - 450 pg/mL 05/23/2024 9:39 PM [employer] [facility] Comment: Reference range [...] Unknown Venipuncture / Unknown 05/23/2024 9:02 PM [employer] 05/23/2024 9:10 PM [employer] Marilia Summers MD LAB - BLOOD ORDERABLES Final Result Performing Organization Address City/[facility]/ZIP Co de Phone Number [facility] [place] [address], [facility] * (ABNORMAL) CK total (05/19/2024 3:05 AM P[employer]ALL [employer]EM[employer]) CK 240(H) 26 - 192 U/L 05/19/2024 3:37 AM [employer] [facility] Blood VENOUS LINE / Unknown Venipuncture / Unknown 05/19/2024 3:05 AM [employer] 05/19/2024 3:18 AM [employer] Marilia Summers MD LAB - BLOOD ORDERABLES Final Result [facility] [address] [facility], [facility] * (ABNORMAL) Vitamin D deficiency screening (04/28/2024 1:50 AM [employer]ALL [employer]) Vitamin D, Total (25-Hydroxy) 8(L) 20 - 50 ng/mL 05/01/2024 6:42 PM [employer] [facility] Comment:severe deficiency Blood BLOOD SPECIMEN / Unknown Venipuncture / Unknown 04/28/2024 1:50 AM [employer] 04/28/2024 1:53 AM [employer] Narrative [facility] - 05/01/2024 6:42 PM [employer] Season, race, dietary intake, and treatment affect the concentration of 48-pqntolh-Auhnloj D. Values may decrease during winter months and increase during summer months. Vitamin D determination is routinely performed by an immunoassay specific for 25 hydroxyvitamin D3. If an individual is on vitamin D2(ergocalciferol) supplementation, please specify 25 OH vitamin D2 and D3 level determination by LCMSMS test VITD23. us Case Samuel MD LAB - BLOOD ORDERABLES Fi nal Result U [facility]OR[facility] [address] [facility], [address] [place] [address] * CT Pelvis Bone wo Contrast (04/19/2024 3:22 AM [employer]) Anatomical Region Laterality Modality Abdomen/Pelvis, SUBRAD CT MS K, UMP CT ABDOMEN PELVIS, SUBRAD CT BODY, RAD CT Computed Tomography 04/19/2024 3:22 AM [employer]ALL [employer] Impressions 04/19/2024 4:06 AM [employer] IMPRESSION: 1. Sclerosis involving the left femoral [...] right femoral head. Narrative 04/19/2024 4:06 AM [employer]ALL [employer] EXAM: CT PELVIS BONE WO CONTRAST LOCATION: [facility] DATE: 04/19/2024 INDICATION: Eval L hip [...] subtle curvilinear subarticular fracture line (/ and /). -Well-corticated osseous density along the [...] EXAM: CT PELVIS BONE WO CONTRAST LOCATION: [facility] DATE: 04/19/2024 INDICATION: Eval L hip [...] is a subtle curvilinear subarticular fracture line (/57 and /69). -Well-corticated osseous density along the anterior aspect [...] Extra Red Top Tube (04/08/2024 10:22 PM [employer]ALL [employer]EM[employer]) Hold Specimen [facility] 04/08/2024 11:31 PM [employer] [facility] Blood STRUCTURE OF LEFT UPPER LIMB / Unknown Venipuncture / Unknown 04/08/2024 10:22 PM [employer] 04/08/2024 10:30 PM [employer] Deshawn Arredondo MD LAB - BLOOD ORDERABLES Liss l Result Performing Organization Address City/[facility]/ZIP Co de Phone Number [facility] [address] [place], [place] [id number] [place] [address] * Extra Blue Top Tube (04/08/2024 10:22 PM P[employer]) Hold Specimen [facility] 04/08/2024 11:31 PM [employer] [facility] Blood STRUCTURE OF LEFT UPPER LIMB / Unknown Venipuncture / Unknown 04/08/2024 10:22 PM POURED WALL [employer]EM[employer] 04/08/2024 10:30 PM POURED W[employer]EM[employer] Deshawn Arredondo MD LAB - BLOOD ORDERABLES Liss l Result Performing Organization Address City/[facility]/ZIP Co de Phone Number [facility] [address] [place] [address], [facility] from Last 3 Months Insurance [place] [id number] [place] [id number] [place] Advance Directives For more information, please contact: [phone] * Full Code (Latest Code Status on File) Date Activated Date Inactivated Comments 06/26/2024 6:53 PM 06/29/2024 1:11 PM All basic and advanced life-sustaining interventions are performed as appropriate Question Answer Comments Code status determined by: Discussion with patie nt/ legal decision maker * Full Code Date Activated Date Inactivated Comments 06/17/2024 4:52 [...] Comments Code status determined by: Discussion with elizabethe nt/ legal decision maker * Full Code [...] on file; continue PREVIOUSLY ORDERED code status Care Teams Mold Capper Relationship Specialty Start Date End Date Veronica Joseph MD [address] [place] [address] PCP - General Family Medicine 06/18/24 Mor Ramsey Medical Student 04/03/24 Case Samuel MD [address] [place] [address] [address] [place] [address] Assigned Pediatric Specialist Provider 05/18/24 Juhi Benson, RN Specialty Production Ski Repairer Hematology & Oncology 05/29/24
[2024-06-30 22:46] VITALS: BP 127/81; RESP 18; TEMP 37.2; O2SAT 98; BMI 21.6
--- NOTE | 2024-06-30 23:07 | ED.GENADULT ---
HPI - General Adult General Date Seen: 06/30/24 Chief complaint: Shortness of Breath/Dyspnea Stated complaint: sickle cell crisis Time Seen by Provider: 06/30/24 23:02 History of Present Illness HPI narrative: 29 YO f with history of sickle cell disease. She does have a history of recent ER visits since she moved here to [place]. She was seen here 4 times in March, not at all during April. She was seen here on 06/22, 06/24, and 06/25 for sickle cell pain crises. Per records she received IV Dilaudid and Benadryl, per her treatment plan during those ER visits. Labs on 06/25 showed a white count of 7.1, hemoglobin of 8.6, platelet count 548. She also reports that she was seen at the [facility] and was diagnosed with a blood clot in her left lung. She is here in [place] for a and she came here tonight to the ER [place] because her sickle cell is ?acting up. ? Nursing was able to print out a discharge summary from the [facility]. Per the discharge summary, ?29-year-old female admitted on 06/26/2024. She has a past medical history of sickle cell disease complicated by multiple episodes of sickle cell pain crisis, acute chest syndrome, functional Tirso plenty a, an avascular necrosis of the hip. She also has a history of PE, and anxiety. She has multiple recent admissions and ED visits for pain crises. She presented to the ED with continued acute vaso-occlusive pain and chest pain. She was found to have bilateral pulmonary emboli, now started on apixaban. She had a D-dimer in the ER that was 0.69, prompting a chest CT which showed bilateral pulmonary emboli in addition to bilateral pulmonary nodules. Apparently has a history of pulmonary emboli in the past and has not been on consistent anticoagulation. Apparently per hematology the pulmonary emboli could represent port associated thrombosis with embolization as she just had new port placed. Echocardiogram showed no sign of right heart strain. Bilateral lower extremity ultrasounds were negative for DVT. She was started on apixaban 10 mg b.i.d. for 7 days with a plan to decrease down to 5 mg b.i.d.. She was set up for outpatient follow-up with Hematology. She also has a history of sickle cell disease with SS genotype. She had had been hospitalized on 06/15/2024 for sickle cell crisis, chest pain, concern for pneumonia versus acute chest syndrome. Hospitalized again 06/1504/27/2024 for ongoing visit glue sh pain. She is on hydroxyurea 1000 mg b.i.d., folic acid 1 mg daily, topical diclofenac, fluoxetine 10 mg daily for anxiety Management plan most recent [facility] note to from June 24: Acute Pain Crisis Treatment: (note that Toradol is listed as an allergy) ER/Acute Care/Infusion Clinic: Hydromorphone 2 mg IVP/SC Q1H X 3 doses LR 500 ml/hr x 2 hours (1 L total) Other: Zofran 8 mg IV Patient also receives Benadryl to help with the itching from the opiates She presents to the ER tonight with pain throughout her body. Per triage she had said that she was a little bit short of breath, but to me she says that is not actually true. She is more does having a pain crisis. She normally gets her care now through the [facility] and has hematology through the [facility] system. However she was in this part of the state because she was visiting for her boyfriend's grandparents (his grandfather a couple of weeks ago and his grandmother just last week). She is feeling pain in her back, legs and through her body. She feels like she is having a sickle crisis. She took her normal dose of Dilaudid (4 mg oral) at home but is just not helping. She came to the ER desiring some IV pain meds and IV fluids. She does not really feel like she is more anemic and does not think she will likely need transfusion. She is not feeling short of breath. She says that she is not really having any pain in her chest tonight. She has been taking her prescribed apixaban. Related Data Home Medications ?Medication ?Instructions ?Recorded ?Confirmed hydromorphone 2 mg tablet 4 mg PO Q4H PRN pain 04/02/24 04/08/24 folic acid 2 tab PO DAILY 04/04/24 04/08/24 hydroxyurea (sickle cell) 1,000 mg PO BID 04/04/24 04/08/24 Previous Rx's ?Medication ?Instructions ?Recorded azithromycin 250 mg tablet 250 mg PO DAILY 4 days #4 tabs 04/08/24 cefdinir 300 mg capsule 300 mg PO BID #20 caps 04/08/24 cefdinir 300 mg capsule 300 mg PO BID 107 days #214 caps 04/08/24 Allergies Allergy/AdvReac Type Severity Reaction Status Date / Time cashew nut Allergy Verified 06/30/24 22:50 ketorolac (From Toradol) Allergy Verified 06/30/24 22:50 tramadol Allergy Verified 06/30/24 22:50 banana AdvReac Verified 06/30/24 22:50 latex AdvReac Verified 06/30/24 22:50 [facility] Medical History (Updated 07/01/24 @ 01:05 by Jayden Manriquez MD) Sickle cell pain crisis ?D57.00 - Hb-SS disease with crisis, unspecified (ICD-10) Sickle cell anemia ?D57.1 - Sickle-cell disease without crisis (ICD-10) Social History Smoking Status: Never smoker Do you use any of these nicotine containing products: None How often do you have a drink containing alcohol: never AUDIT-C Alcohol total score: 0 Non-prescribed substance use: opiods/painkillers Exam Const: Vital Signs, click to edit/add: Vital Signs - 24 hr 06/30/24 22:46 Temperature 98.9 F Respiratory Rate 18 Blood Pressure [Ri ght Upper Arm] 127/81 Pulse Oximetry 98 Oxygen Delivery Me thod Room Air Course Vital Signs Vital signs: Initial Vital Signs Temperature 98.9 F 06/30/24 22:46 Temperature Source Temporal Artery Scan 06/30/24 22:46 Respiratory Rate 18 06/30/24 22:46 Blood Pressure 127/81 06/30/24 22:46 Blood Pressure Mean 96 06/30/24 22:46 Blood Pressure Position Sitting 06/30/24 22:46 Pulse Oximetry 98 06/30/24 22:46 Oxygen Delivery Method Room Air 06/30/24 22:46 Vital Signs Temperature 98.9 F 06/30/24 22:46 Respiratory Rate 18 06/30/24 22:46 Blood Pressure 127/81 06/30/24 22:46 Pulse Oximetry 98 06/30/24 22:46 Oxygen Delivery Method Room Air 06/30/24 22:46 Temperature 98.9 F 06/30/24 22:46 Respiratory Rate 18 06/30/24 22:46 Blood Pressure 127/81 06/30/24 22:46 Pulse Oximetry 98 06/30/24 22:46 Oxygen Delivery Method Room Air 06/30/24 22:46 Medications Administered Medications: Generic Name Dose Route Start Last Admin Trade Name Ramona PRN Reason Stop Dose Admin Diphenhydramine HCl 25 mg 06/30/24 23:29 06/30/24 23:47 Diphenhydramine 50 Mg/Ml Inj IVP 06/30/24 23:30 25 mg ONCE ONE Administration Hydromorphone HCl 2 mg 06/30/24 23:29 06/30/24 23:46 Hydromorphone 0.5 Mg/0.5 Ml Inj IVP 06/30/24 23:30 2 mg ONCE ONE Administration Hydromorphone HCl 2 mg 06/30/24 23:52 07/01/24 00:20 Hydromorphone 0.5 Mg/0.5 Ml Inj IVP 06/30/24 23:53 2 mg ONCE ONE Administration Lactated Ringer's 1,000 mls @ 1,000 mls/hr 06/30/24 23:29 07/01/24 00:53 Lactated Ringers 1000 Ml IV 07/01/24 00:28 Infused .Q1H ONE Infusion Medical Decision Making MDM Narrative Medical decision making narrative: Pleasant 29-year-old female with known history of sickle cell disease presents to the ER today with body aches and pain which she feels represent a acute pain crisis. She was just in the hospital a few days ago with chest pain difficulty breathing and diagnosed with bilateral pulmonary emboli and is now on treatment with apixaban. She presents to the ER [facility] because she is visiting this area because of her boyfriend's grandparents' . She is having pain in her back and through her body but not really in her chest. She says she is not really having any acute trouble breathing. She feels like she is having a pain crisis. She was treated with 3 doses of IV Dilaudid, 2 mg each, as well as Benadryl 25 mg IV, this is her usual regimen for managing acute pain, per her notes from the [facility] she had improvement in pain. She is not requesting discharge and has called her ride, who will be here in about 20 minutes We did check a CBC which shows anemia with hemoglobin of 7.7 tonight. This is down slightly from her baseline a couple of months ago. White count is elevated at 15 but patient actually says that is trending down from elevation of 16 when she was in the hospital at the 2 days ago. There is no clear evidence for any infections so would hold off on any empiric antibiotics at this point She does recently have diagnosis of PE but is not having any acute short shortness of breath, chest pain, hypoxia. She does have tachycardia with heart rate of 107 At this point I feel that the risk of radiation from repeat CT scan of her chest would outweigh the benefit. She has plans for a phone follow-up with her hematology team at the [facility] on Wednesday and has an appointment scheduled in 7 days on the to start arranging a an exchange transfusion. She has just undergone 2 port placements in her chest to help facilitate need for ongoing exchange transfusions Lab Data Labs: Lab Results 06/30/24 Range/Units 23:46 WBC 17.46 H (4.50-11.00) K/uL RBC 2.34 L (4.00-5.20) m/uL Hgb 7.7 L* (12.0-16.0) gm/dL Hct 22.3 L (33.0-51.0) % MCV 95 (80-100) fL MCH 33 (26-34) pg MCHC 35 (32-36) gm/dL RDW Coeff of Juli 17.9 H (11.5-15.5) % Plt Count 392 (140-440) K/uL Neut % (Auto) 55.1 (42.0-72.0) % Lymph % (Auto) 27.5 (20-44) % Tama % (Auto) 15.1 H (0.0-11.0) % Eos % (Auto) 1.0 (0.0-7.0) % Baso % (Auto) 1.0 (0.0-3.0) % Neut # (Auto) 9.60 H (1.7-7.0) K/uL Lymph # (Auto) 4.80 H (0.90-2.90) K/uL Tama # (Auto) 2.60 H (0.00-0.90) K/UL Eos # (Auto) 0.20 (0.00-0.50) K/uL Baso # (Auto) 0.20 (0.00-0.30) K/uL Abs Immat Gran (auto) 0.10 (0.00-0.30) K/uL Imm/Tot Granulo (auto) 0.3 % Discharge Plan Discharge Clinical Impression: Sickle cell pain crisis Patient Disposition: Home, Self-Care Condition: Stable Instructions: Sickle Cell Crisis (ED) Additional Instructions: As we discussed please return to the ER or [facility] immediately if you have any concerning symptoms especially trouble breathing, high fever, chest pain. Please follow-up with your hematology team on Wednesday by phone and as soon as possible in clinic. Prescriptions: No Action cefdinir 300 mg capsule 300 mg PO BID 107 Days Qty: 214 0RF azithromycin 250 mg tablet 250 mg PO DAILY 4 Days Qty: 4 0RF Rx Instructions: first dose was given in ER 04/08/24. start on day 2 of therapy cefdinir 300 mg capsule 300 mg PO BID Qty: 20 0RF hydromorphone 2 mg tablet 4 mg PO Q4H PRN (Reason: pain) hydroxyurea (sickle cell) 1,000 mg PO BID folic acid 2 tab PO DAILY Rx Instructions: 2mg Follow Up/Referrals: Provider,Not a Local [Primary Care Provider] - Stand Alone Forms: MyHealth Info Instructions
[2024-06-30] MEDS: HYDROmorphone 0.5 mg/0.5 ml inj 2 MG IVP (23:46)
[2024-06-30] MEDS: LACTATED RINGERS 1000 ML 1,000 ML IV (23:47)
[2024-06-30] MEDS: diphenhydrAMINE 50 MG/ML inj 25 MG IVP (23:47)
--- OUTSIDE RECORDS SUMMARY | 2024-06-30 23:52 | XMS_ITS | Clinical Summary ---
Author Organization [facility] Address [address] [place] [id number] Care Team Providers Care Book Cleaner Name Role Phone Veronica Joseph MD Primary Care Provider [phone] Allergies Active Allergy Reactions Criticality Noted Date [...] ickle cell pain crisis (HC) Inhale 1 [place] into affected nostril(s) each time if needed [...] for Pain. 10 Tablet 5 2:58 PM COOKER LOADER 04/27/19 25 Active folic acid 1 mg tablet Take 1 tablet (1 mg) by mouth daily. 30 Tablet 5 1:41 PM COOKER LOADER 05/01/19 25 Active hydroxyurea (HYDREA) 500 mg capsule Take 2 capsules (1,000 mg) by mouth 2 times daily 120 Capsule 05/01/19 25 Active multivitamin with folic acid 0.4 mg (Thera) Take 1 tablet by mouth daily. 30 Tablet 11 5 10:39 AM COOKER LOADER 05/01/19 25 Active amoxicillin-clavul anate (AUGMENTIN) 875-125 mg tablet Take 1 tablet by mouth 2 times daily for 7 days. 14 Tablet 5 10:39 AM COOKER LOADER 05/08/19 25 Active doxycycline hyclate 100 mg capsule Take 1 capsule (100 mg) by mouth 2 times daily for 7 days. 14 Capsule 5 10:39 AM COOKER LOADER 05/08/19 25 Active HYDROmorphone 4 mg tablet Take 1 Tablet (4 mg) by mouth every 6 hours if needed for severe pain. 30 Tablet 5 1:04 PM COOKER LOADER 05/09/19 25 Active FLUoxetine (PROZAC) 10 mg capsule Take 1 capsule (10 mg) by mouth daily. 40 Capsule 1 5 3:26 PM COOKER LOADER 05/29/19 25 Active naloxone (NARCAN) 4 mg/actuation nasal spray [place] 1 spray (4 mg) into one nostril [...] times daily. 178 Tablet 5 3:59 PM COOKER LOADER 06/30/19 25 025 Active HYDROmorphone 2 mg tablet Take 2 tablets (4 mg) by mouth every 6 hours as needed for severe pain. 40 Tablet 5 3:59 PM COOKER LOADER 06/30/19 25 Active HYDROmorphone 2 mg tablet Take 2 tablets (4 mg) by mouth every 6 hours as needed for severe pain. 40 Tablet 5 3:26 PM COOKER LOADER 05/29/19 25 025 Discontin ued(Reord er (E-cancel not sent)) HYDROmorphone 2 mg tablet Take 2 tablets (4 mg) by mouth every 6 hours as needed for severe pain. 40 Tablet 5 4:27 PM COOKER LOADER 06/07/19 25 025 Discontin ued(Reord er (E-cancel not sent)) HYDROmorphone 2 mg tablet Take 2 tablets (4 mg) by mouth every 6 hours as needed for severe pain. 40 Tablet 5 11:11 AM COOKER LOADER 06/15/19 25 025 Discontin ued(Reord er (E-cancel [...] Department Care Team Description 06/11/2024 1:08 AM COOKER LOADER - 06/11/2024 3:57 AM [facility] Emergency [address] [address] Juan Kunz, DO Sickle cell pain crisis (HC) (Primary Dx) Discharge Disposition: Home Self Care 06/11/2024 Travel 06/06/2024 Refill [facility] [address] [place] [address] Veronica Joseph MD Refill Request 06/03/2024 11:37 AM COOKER LOADER - 06/03/2024 2:[address] [address] Ben Swan MD Viral syndrome (Primary Dx) Discharge Disposition: Home Self Care 06/03/2024 Travel 05/29/2024 1:53 PM COOKER LOADER - 05/29/2024 2:[address] [address] Ana Pacheco MD Sickle cell pain crisis (HC) (Primary Dx) Discharge Disposition: Home Self Care 05/29/2024 Travel 05/21/2024 10:35 AM COOKER LOADER - 05/21/2024 2:[address] [address] Juliana Gil, Sickle cell disease with crisis (HC) (Primary Dx); Diffuse pain Discharge Disposition: Home Self Care 05/21/2024 Travel 05/18/2024 2:12 AM COOKER LOADER - 05/18/2024 4:[address] [address] Onesimo Gaviria MD Sickle cell pain crisis (HC) (Primary Dx) Discharge Disposition: Home Self Care 05/18/2024 Travel 05/17/2024 Telephone [facility] [address] [place] [address] Veronica Joseph MD Questions (HEALTH STATUS ) 05/10/2024 Telephone [facility] [address] [place] [address] Veronica Joseph MD Follow Up 05/07/2024 5:53 PM COOKER LOADER - 05/07/2024 8:[address] [address] Caryn Downs MD Sickle cell anemia with pain (HC) (Primary Dx); RUQ abdominal pain Discharge Disposition: Home Self Care 05/07/2024 Travel 05/03/2024 10:59 PM COOKER LOADER - 05/04/2024 2:[address] [address] Anika Mccracken MD Discharge Disposition: Home Self Care 05/03/2024 Travel 05/02/2024 10:15 AM COOKER LOADER - 05/02/2024 12:[address] [address] Juan Kunz DO Sickle cell pain crisis (HC) (Primary Dx) Discharge Disposition: Home Self Care 05/02/2024 Travel 04/27/2024 Telephone [facility] [address] [place] [address] Veronica Joseph MD 04/27/2024 Refill [facility] [address] [place] [address] Veronica Joseph MD Refill Request (HYDROmorphone 4 mg tablet ) 04/24/2024 1:31 AM COOKER LOADER - 04/24/2024 4:[address] [address] Onesimo Gaviria MD Sickle cell pain crisis (HC) (Primary Dx); Community acquired pneumonia, unspecified laterality Discharge Disposition: Home Self Care 04/24/2024 Refill [facility] [address] [place] [address] Veronica Joseph MD Refill Request (HYDROmorphone 4 mg tablet ) 04/24/2024 Travel 04/22/2024 1:40 PM COOKER LOADER - 04/22/2024 5:[address] [address] Shauna Flaherty PA Sickle cell pain crisis (HC) (Primary Dx) Discharge Disposition: Home Self Care 04/22/2024 Travel 04/20/2024 3:40 PM COOKER LOADER - 04/20/2024 6:[address] [address] Maria Teresa Haider PA Left hip pain (Primary Dx) Discharge Disposition: Home Self Care 04/20/2024 Travel 04/20/2024 Telephone [facility] [address] [place] [address] Veronica Joseph MD 04/20/2024 Refill [facility] [address] [place] [address] Veronica Joseph MD Refill Request (HYDROmorphone 4 mg tablet) 04/19/2024 7:18 PM COOKER LOADER - 04/19/2024 9:[address] [address] Maria Teresa Haider PA Closed right hip fracture, initial encounter (HC) (Primary Dx); Avascular necrosis of bone of right hip (HC); Sickle cell pain crisis (HC) Discharge Disposition: Home Self Care 04/19/2024 Travel 04/18/2024 3:51 AM COOKER LOADER - 04/18/2024 5:[address] [address] Elizabeth Duffy MD Left hip pain (Primary Dx); Sickle cell disease with crisis (HC) Discharge Disposition: Home Self Care 04/17/2024 10:36 AM COOKER LOADER - 04/17/2024 12:36 PM COOKER LOADER [address] [address] Juhi Hull PA Left hip pain (Primary Dx); Sickle cell pain crisis (HC) Discharge Disposition: Home Self Care 04/17/2024 Travel 04/15/2024 5:33 PM COOKER LOADER - 04/15/2024 10:[address] [address] Kathy Contreras MD Sickle cell pain crisis (HC) (Primary Dx) Discharge Disposition: Home Self Care 04/15/2024 Travel 04/11/2024 9:55 AM COOKER LOADER Office Visit [facility]ly [facility] [address] [place] [address] Veronica Joseph MD Follow Up (Sickle Cell) 04/11/2024 Travel 04/08/2024 6:17 PM COOKER LOADER - 04/08/2024 8:[address] [address] Ana Pacheco MD Sickle cell pain crisis (HC) (Primary Dx) Discharge Disposition: Home Self Care 04/08/2024 Travel 04/06/2024 8:27 PM COOKER LOADER - 04/06/2024 10:[address] [address] Tanmay Olivares PA Biliary colic (Primary Dx) Discharge Disposition: Home Self Care 04/06/2024 Travel 04/04/2024 6:29 PM COOKER LOADER - 04/04/2024 10:[address] [address] Juhi Patel PA Sickle cell anemia with pain (HC) (Primary Dx); Opioid use Discharge Disposition: Home Self Care 04/04/2024 Travel 04/02/2024 3:52 PM COOKER LOADER - 04/02/2024 6:31 PM [facility]ER LOADER Emergency [id number] [place] [address] Sabrina Ulrich, LESLEY Morgan, Klever Johnson MD [...] on file Legal Sex Female 8:18 PM COOKER LOADER Gender Identity Not on file Sexual Orientation Not on file Obstetrics History Last Filed Vital Signs Vital Sign Reading Time Taken Comments Blood Pressure 121/73 06/11/2024 3:30 AM COOKER LOADER Pulse 93 06/11/2024 3:30 AM COOKER LOADER Temperature 36.6 C (97.9 F) 06/11/2024 1:12 AM COOKER LOADER Respiratory Rate 18 06/11/2024 3:00 AM COOKER LOADER Oxygen Saturation 95% 06/11/2024 3:30 AM COOKER LOADER Inhaled Oxygen Concentration - - Weight 51.7 kg (114 lb) 06/11/2024 1:10 AM COOKER LOADER Height 154.9 cm (5' 1) 06/11/2024 1:10 AM COOKER LOADER Body Mass Index 21.54 06/11/2024 1:10 AM COOKER LOADER Plan of Treatment Health Maintenance Due [...] WITH AUTO DIFFERENTIAL STAT 06/03/2024 12:51 PM COOKER LOADER INFLUENZA A/B PCR Today 06/03/2024 12: 51 PM COOKER LOADER COVID-19 MOLECULAR Today 06/03/2024 12 :51 PM COOKER LOADER BASIC METABOLIC PANEL STAT 06/03/2024 12:51 PM COOKER LOADER CBC WITH AUTO DIFFERENTIAL STAT 06/03/2024 12:51 PM COOKER LOADER XR CHEST 2 VIEWS PA AND LATERAL STAT 06/03/2024 12:34 PM COOKER LOADER EKG 12 LEAD STAT 06/03/2024 11:48 AM COOKER LOADER HEMOGLOBIN STAT 05/29/2024 2:23 PM COOKER LOADER EKG 12 LEAD STAT 05/29/2024 2:03 PM COOKER LOADER EKG 12 LEAD STAT 05/21/2024 10:19 AM COOKER LOADER RED CELL MORPHOLOGY STAT 05/07/2024 6 :20 PM COOKER LOADER PLATELET ESTIMATE STAT 05/07/2024 6:2 0 PM COOKER LOADER RETICULOCYTES STAT 05/07/2024 6:20 PM COOKER LOADER LIPASE STAT 05/07/2024 6:20 PM COOKER LOADER HEPATIC FUNCTION PANEL STAT 6:20 PM COOKER LOADER BASIC METABOLIC PANEL STAT 05/07/2024 6:20 PM COOKER LOADER CBC W PLT NO DIFF STAT 05/07/2024 6:[address] CHEST PE STUDY STAT 05/04/2024 1:4 6 AM COOKER LOADER RETICULOCYTES STAT 05/04/2024 12:24 AM COOKER LOADER URINE Today 05/04/2024 12:07 AM COOKER LOADER UA W/ SEDIMENT EXAM REFLEXED PER CRITERIA Today 05/04/2024 12:07 AM COOKER LOADER CWS PATH REVIEW HEMATOLOGY STAT 05/03/2024 11:52 PM COOKER LOADER RED CELL MORPHOLOGY STAT 05/03/2024 1 1:52 PM COOKER LOADER PLATELET ESTIMATE STAT 05/03/2024 11: 52 PM COOKER LOADER MANUAL DIFFERENTIAL STAT 05/03/2024 1 1:52 PM COOKER LOADER CBC WITH AUTO DIFFERENTIAL STAT 05/03/2024 11:52 PM COOKER LOADER D-DIMER,QUANTITATIVE STAT 05/03/2024 11:52 PM COOKER LOADER HEPATIC FUNCTION PANEL STAT 11:52 PM COOKER LOADER BASIC METABOLIC PANEL STAT 05/03/2024 11:52 PM COOKER LOADER CBC WITH AUTO DIFFERENTIAL STAT 05/03/2024 11:52 PM COOKER LOADER EKG 12 LEAD STAT 05/03/2024 11:48 PM COOKER LOADER INFLUENZA A/B PCR Today 05/02/2024 10: 20 AM COOKER LOADER COVID-19 MOLECULAR Today 05/02/2024 10 :20 AM COOKER LOADER CBC WITH AUTO DIFFERENTIAL SULEMA 04/24/2024 2:16 AM COOKER LOADER RETICULOCYTES Early AM 04/24/2024 2:16 AM COOKER LOADER CBC WITH AUTO DIFFERENTIAL SULEMA 04/24/2024 2:16 AM COOKER LOADER BASIC METABOLIC PANEL SULEMA 04/24/2024 2:16 AM COOKER LOADER XR CHEST 2 VIEWS PA AND LATERAL STAT 04/24/2024 1:58 AM COOKER LOADER EKG 12 LEAD SULEMA 04/24/2024 1:38 AM COOKER LOADER RETICULOCYTES STAT 04/22/2024 2:21 PM COOKER LOADER BASIC METABOLIC PANEL STAT 04/22/2024 2:21 PM COOKER LOADER CBC W PLT NO DIFF STAT 04/22/2024 2:2 1 PM COOKER LOADER XR CHEST 2 VIEWS PA AND LATERAL STAT 04/22/2024 1:18 PM COOKER LOADER EKG 12 LEAD STAT 04/22/2024 1:06 PM COOKER LOADER TYPE & SCREEN STAT 04/20/2024 4:43 PM COOKER LOADER RED CELL MORPHOLOGY STAT 04/20/2024 4 :43 PM COOKER LOADER PLATELET ESTIMATE STAT 04/20/2024 4:4 3 PM COOKER LOADER MANUAL DIFFERENTIAL STAT 04/20/2024 4 :43 PM COOKER LOADER CBC WITH AUTO DIFFERENTIAL STAT 04/20/2024 4:43 PM COOKER LOADER RETICULOCYTES STAT 04/20/2024 4:43 PM COOKER LOADER CBC WITH AUTO DIFFERENTIAL STAT 04/20/2024 4:43 PM COOKER LOADER BASIC METABOLIC PANEL STAT 04/20/2024 4:25 PM COOKER LOADER XR ANKLE 3 VIEWS LEFT STAT 04/18/2024 5:09 AM COOKER LOADER C-REACTIVE PROTEIN STAT 04/18/2024 4: 59 AM COOKER LOADER BASIC METABOLIC PANEL STAT 04/18/2024 4:59 AM COOKER LOADER SEDIMENTATION RATE STAT 04/18/2024 4: 58 AM COOKER LOADER CBC WITH AUTO DIFFERENTIAL STAT 04/18/2024 4:58 AM COOKER LOADER RETICULOCYTES STAT 04/18/2024 4:58 AM COOKER LOADER CBC WITH AUTO DIFFERENTIAL STAT 04/18/2024 4:58 AM COOKER LOADER RED CELL MORPHOLOGY STAT 04/17/2024 1 0:50 AM COOKER LOADER PLATELET ESTIMATE STAT 04/17/2024 10: 50 AM COOKER LOADER C-REACTIVE PROTEIN SULEMA 04/17/2024 10 :50 AM COOKER LOADER SEDIMENTATION RATE SULEMA 04/17/2024 10 :50 AM COOKER LOADER CBC W PLT NO DIFF STAT 04/17/2024 10: 50 AM COOKER LOADER BASIC METABOLIC PANEL STAT 04/17/2024 10:50 AM COOKER LOADER RETICULOCYTES STAT 04/17/2024 10:50 AM COOKER LOADER XR HIP 2 OR 3 VIEWS W PELVIS LEFT STAT 04/15/2024 6:34 PM COOKER LOADER TYPE & SCREEN STAT 04/15/2024 6:10 PM COOKER LOADER RED CELL MORPHOLOGY STAT 04/15/2024 6 :10 PM COOKER LOADER PLATELET ESTIMATE STAT 04/15/2024 6:1 0 PM COOKER LOADER C-REACTIVE PROTEIN STAT 04/15/2024 6: 10 PM COOKER LOADER SEDIMENTATION RATE STAT 04/15/2024 6: 10 PM COOKER LOADER CBC WITH AUTO DIFFERENTIAL STAT 04/15/2024 6:10 PM COOKER LOADER BASIC METABOLIC PANEL STAT 04/15/2024 6:10 PM COOKER LOADER RETICULOCYTES STAT 04/15/2024 6:10 PM COOKER LOADER CBC WITH AUTO DIFFERENTIAL STAT 04/15/2024 6:10 PM COOKER LOADER RED CELL MORPHOLOGY Timed 04/08/2024 8 :27 PM COOKER LOADER PLATELET ESTIMATE Timed 04/08/2024 8:2 7 PM COOKER LOADER RETICULOCYTES Early AM 04/08/2024 8:27 PM COOKER LOADER CBC W PLT NO DIFF Early AM 04/08/2024 8:2 7 PM COOKER LOADER XR CHEST 2 VIEWS PA AND LATERAL STAT 04/08/2024 7:28 PM COOKER LOADER BASIC METABOLIC PANEL STAT 04/08/2024 7:05 PM COOKER LOADER EKG 12 LEAD STAT 04/08/2024 5:50 PM COOKER LOADER US ABDOMEN LIMITED GALLBLADDER STAT 04/06/2024 9:38 PM COOKER LOADER CBC WITH AUTO DIFFERENTIAL STAT 04/06/2024 8:55 PM COOKER LOADER RETICULOCYTES STAT 04/06/2024 8:55 PM COOKER LOADER LIPASE STAT 04/06/2024 8:55 PM COOKER LOADER COMP METABOLIC PANEL STAT 04/06/2024 8:55 PM COOKER LOADER CBC WITH AUTO DIFFERENTIAL STAT 04/06/2024 8:55 PM COOKER LOADER XR CHEST 2 VIEWS PA AND LATERAL STAT 04/04/2024 7:28 PM COOKER LOADER RED CELL MORPHOLOGY STAT 04/04/2024 6 :54 PM COOKER LOADER PLATELET ESTIMATE STAT 04/04/2024 6:5 4 PM COOKER LOADER MANUAL DIFFERENTIAL STAT 04/04/2024 6 :54 PM COOKER LOADER TROPONIN T (HS) ACUTE W/2HR REFLEX SULEMA 04/04/2024 6:54 PM COOKER LOADER CBC WITH AUTO DIFFERENTIAL STAT 04/04/2024 6:54 PM COOKER LOADER RETICULOCYTES STAT 04/04/2024 6:54 PM COOKER LOADER BASIC METABOLIC PANEL STAT 04/04/2024 6:54 PM COOKER LOADER CBC WITH AUTO DIFFERENTIAL STAT 04/04/2024 6:54 PM COOKER LOADER EKG 12 LEAD STAT 04/04/2024 6:45 PM COOKER LOADER XR CHEST 2 VIEWS PA AND LATERAL STAT 04/02/2024 4:42 PM COOKER LOADER EKG 12 LEAD STAT 04/02/2024 4:24 PM COOKER LOADER RED CELL MORPHOLOGY STAT 04/02/2024 4 :21 PM COOKER LOADER PLATELET ESTIMATE STAT 04/02/2024 4:2 1 PM COOKER LOADER CBC WITH AUTO DIFFERENTIAL STAT 04/02/2024 4:21 PM COOKER LOADER RETICULOCYTES STAT 04/02/2024 4:21 PM COOKER LOADER BASIC METABOLIC PANEL STAT 04/02/2024 4:21 PM COOKER LOADER CBC WITH AUTO DIFFERENTIAL STAT 04/02/2024 4:21 PM COOKER LOADER from Last 3 Months Results * COVID-19 MOLECULAR (06/03/2024 12:51 PM COOKER LOADER) Only the most recent of2 resultswithin the time period is included. COVID 19 [place] MOLECULAR Not detected Not detected 06/03/2024 1:18 PM COOKER LOADER [facility] 06/03/2024 1:18 PM COOKER LOADER [facility] Comment:Specimen submitted t o [facility] for testing. Other SPECIMEN FROM NASOPHARYNGEAL STRUCTURE / Unknown Non-Blood / Unknown 06/03/2024 12:51 PM COOKER LOADER 06/03/2024 12:54 PM COOKER LOADER Ben Swan MD MICROBIOLOGY Final Res ult Performing Organization Address City/[facility] Co de Phone Number [facility] [address] [place] [phone], * INFLUENZA A/B PCR (06/03/2024 12:51 PM COOKER LOADER) Only the most recent of2 resultswithin the time period is included. Pathologist [facility] INFLUENZA A PCR NOT Detected 06/03/2024 1:18 PM COOKER LOADER [facility] INFLUENZA B PCR NOT Detected 06/03/2024 1:18 PM COOKER LOADER [facility] Other SPECIMEN FROM NASOPHARYNGEAL STRUCTURE / Unknown Non-Blood / Unknown 06/03/2024 12:51 PM COOKER LOADER 06/03/2024 12:54 PM COOKER LOADER Ben Swan MD MICROBIOLOGY Final Res ult Performing Organization Address [facility]/ZIP Co de Phone Number [facility] [address] [place] [phone], * (ABNORMAL) CBC WITH AUTO DIFFERENTIAL (06/03/2024 12:51 PM COOKER LOADER) Only the most recent of9 resultswithin the time period is included. WHITE BLOOD COUNT 11.0 4.5 - 11.0 thou/cu mm 06/03/2024 1:05 PM COOKER LOADER [facility] RED BLOOD COUNT 2.94(L) 4.00 - 5.20 mil/cu mm 06/03/2024 1:05 PM COOKER LOADER [facility] HEMOGLOBIN 9.3(L) 12.0 - 16.0 g/dL 06/03/2024 1:05 PM COOKER LOADER [facility] HEMATOCRIT 26.9(L) 33.0 - 51.0 % 06/03/2024 1:05 PM COOKER LOADER [facility] MCV 92 80 - 100 fL 06/03/2024 1:05 PM COOKER LOADER [facility] MCH 31.6 26.0 - 34.0 pg 06/03/2024 1:05 PM COOKER LOADER [facility] MCHC 34.6 32.0 - 36.0 g/dL 06/03/2024 1:05 PM COOKER LOADER [facility] RDW 18.9(H) 11.5 - 15.5 % 06/03/2024 1:05 PM COOKER LOADER [facility] PLATELET COUNT 456(H) 140 - 440 thou/cu mm 06/03/2024 1:05 PM COOKER LOADER [facility] MPV 9.8 6.5 - 11.0 fL 06/03/2024 1:05 PM COOKER LOADER [facility] NRBC 0.6 % 06/03/2024 1:05 PM COOKER LOADER [facility] ABS NRBC 0.1 thou /cu mm 06/03/2024 1:05 PM COOKER LOADER [facility] % NEUT 69.9 % 06/03/2024 1:05 PM COOKER LOADER [facility] % LYMPH 15.1 % 06/03/2024 1:05 PM COOKER LOADER [facility] % MONO 13.4 % 06/03/2024 1:05 PM COOKER LOADER [facility] % EOS 0.2 % 06/03/2024 1:05 PM COOKER LOADER [facility] % BASO 0.9 % 06/03/2024 1:05 PM COOKER LOADER [facility] % IMMATURE GRAN (METAS,MYELOS,FL OS) 0.5 % 06/03/2024 1:05 PM COOKER LOADER [facility] ABSOLUTE NEUTROPHILS 7.7(H) 1.7 - 7.0 thou/cu mm 06/03/2024 1:05 PM COOKER LOADER [facility] ABSOLUTE LYMPHOCYTES 1.7 0.9 - 2.9 thou/cu mm 06/03/2024 1:05 PM COOKER LOADER [facility] ABSOLUTE MONOCYTES 1.5(H) <0.9 thou/cu mm 06/03/2024 1:05 PM COOKER LOADER [facility] ABSOLUTE EOSINOPHILS 0.0 <0.5 thou/cu mm 06/03/2024 1:05 PM COOKER LOADER [facility] ABSOLUTE BASOPHILS 0.1 <0.3 thou/cu mm 06/03/2024 1:05 PM COOKER LOADER [facility] ABSOLUTE IMMATURE GRANULOCYTES(MET ,MYELOS,PROS) 0.1 <0.3 thou/cu mm 06/03/2024 1:05 PM COOKER LOADER [facility] Blood BLOOD SPECIMEN / Unknown IV Start / Unknown 06/03/2024 12:51 PM COOKER LOADER 06/03/2024 12:54 PM COOKER LOADER us Ben Swan MD HEMATOLOGY Final Res ult [facility] [address] [place] [address], * (ABNORMAL) BASIC METABOLIC PANEL (06/03/2024 12:51 PM COOKER LOADER) Only the most recent of12 resultswithin the time period is included. SODIUM 135(L) 136 - 145 mmol/L 06/03/2024 1:13 PM [facility] POTASSIUM 4.5 3.5 - 5.1 mmol/L 06/03/2024 1:13 PM COOKER LOADER [facility] CHLORIDE 101 98 - 107 mmol/L 06/03/2024 1:13 PM [facility] CO2,TOTAL 21(L) 22 - 29 mmol/L 06/03/2024 1:13 PM COOKER LOADER [facility] ANION GAP 13 5 - 18 06/03/2024 1:13 PM COOKER LOADER [facility] GLUCOSE 100(H) 70 - 99 mg/dL 06/03/2024 1:13 PM [facility] CALCIUM 9.6 8.8 - 10.4 mg/dL 06/03/2024 1:13 PM [facility] Comment: Reference ranges for this test were updated on 02/29/2024 to reflect our healthy population more accurately. Reference range changes are not retroactively applied to results, but previous results using the same methodology can be interpreted in the context of the new reference range. BUN 12 6 - 20 mg/dL 06/03/2024 1:13 PM [facility] CREATININE 0.74 0.50 - 0.90 mg/dL 06/03/2024 1:13 PM [facility] BUN/CREAT RATIO 16 10 - 20 1:13 PM [facility] eGFR >90 >90 mL/min/1.7 3m2 06/03/2024 1:13 PM COOKER LOADER [facility] Comment:As of 2021, eG FR is calculated by the CKD-EPI creatinine equation without race adjustment. eGFR can be influenced by muscle mass, exercise, and diet. The reported eGFR is an estimation only and is only applicable if the renal function is stable. Blood BLOOD SPECIMEN / Unknown IV Start / Unknown 06/03/2024 12:51 PM COOKER LOADER 06/03/2024 12:54 PM COOKER LOADER us Ben Swan MD CHEMISTRY Final Res ult [facility] [address] [place] [phone], * XR CHEST 2 VIEWS PA AND LATERAL (06/03/2024 12:34 PM COOKER LOADER) Only the most recent of6 resultswithin the time period is included. Anatomical Region Laterality Modality CHEST, THORAX, Lung, HEART Compu frank Radiography 06/03/2024 12:3 4 PM COOKER LOADER Impressions 06/03/2024 1:03 PM COOKER LOADER Faintly visible nodularity mid and lower lungs correspond to pulmonary nodules on recent CT. No focal pulmonary consolidation. No pleural effusion. No pneumothorax. Heart size normal. Port anterior right chest wall with right-sided CVC low SVC. In addition, there is a left-sided port anterior left chest wall with left CVC tip also in the low SVC. Narrative 06/03/2024 1:03 PM COOKER LOADER For Patients: As a result of the Cures Act, medical imaging exams and procedure reports are released immediately into your electronic medical record. You may view this report before your referring provider. If you have questions, please contact your health care provider. EXAM: XR CHEST 2 VIEWS PA AND LATERAL LOCATION: [facility] DATE: 06/03/2024 INDICATION: Chest pain. COMPARISON: 05/04/2024 [...] * EKG 12 LEAD (06/03/2024 11:48 AM COOKER LOADER) Only the most recent of9 resultswithin the time period is included. Pathologist [facility] Interpretation Normal sinus rhythm Nonspecific T wave [...] NOW QTc 454 ms BEYOND NOW P [place] 54 degrees BEYOND NOW R [place] 55 degrees BEYOND NOW T [place] 31 degrees BEYOND NOW 06/03/2024 11:4 8 AM COOKER LOADER 06/04/2024 3:27 AM COOKER LOADER Narrative BEYOND NOW - 06/04/2024 3:27 AM COOKER LOADER Test Indication: chest pain [facility] [place] [place] Ed Triage EKG ORD Final Result BEYOND NOW [place], [place] * (ABNORMAL) HEMOGLOBIN (05/29/2024 2:23 PM COOKER LOADER) [facility] HEMOGLOBIN 7.1(L) 12.0 - 16.0 g/dL 05/29/2024 2:32 PM COOKER LOADER [facility] MCV 93 80 - 100 fL 05/29/2024 2:32 PM COOKER LOADER [facility] Blood BLOOD SPECIMEN / Unknown IV Start / Unknown 05/29/2024 2:23 PM COOKER LOADER 05/29/2024 2:30 PM COOKER LOADER Ana Pacheco MD HEMATOLOGY Final Result Performing Organization Address [facility]/ZIP Co de Phone Number [facility] [address] [place] [phone], * (ABNORMAL) RED CELL MORPHOLOGY (05/07/2024 6:20 PM COOKER LOADER) Only the most recent of8 resultswithin the time period is included. POLYCHROMASIA Moderate 05/07/2024 6:33 PM COOKER LO[employer]ER [facility] TARGET CELLS Moderate 05/07/2024 6:33 PM COOKER LOADER [facility] RBC COMMENT Present(A) RBC morphology appears normal, RBC morphology within normal limits for newborns. 05/07/2024 6:33 PM COOKER LO[employer]ER [facility] *SICKLE CELLS Present 05/07/2024 6:33 PM COOKER LO[employer]ER [facility] Blood BLOOD SPECIMEN / Unknown Butterfly / Unknown 05/07/2024 6:20 PM COOKER LOADER 05/07/2024 6:23 PM [employer]OOKER LOADER Caryn Rasmsusen MD HEMATOLOGY Final Result [facility] [address] [place] [phone], * PLATELET ESTIMATE (05/07/2024 6:20 PM COOKER LOADER) Only the most recent of8 resultswithin the time period is included. PLATELET ESTIMATE Adequate Adequate, No estimate 05/07/2024 6:33 PM COOKER LOADER [facility] Blood BLOOD SPECIMEN / Unknown Butterfly / Unknown 05/07/2024 6:20 PM COOKER LOADER 05/07/2024 6:23 PM COOKER LO[employer]ER us Caryn Rasmussen MD HEMATOLOGY Final Result [facility] [address] [place] [address], [place] [phone] * (ABNORMAL) CBC W PLT NO DIFF (05/07/2024 6:20 PM COOKER LOADER) Only the most recent of4 resultswithin the time period is included. WHITE BLOOD COUNT 15.6(H) 4.5 - 11.0 thou/cu mm 05/07/2024 6:33 PM COOKER LOADER [facility] RED BLOOD COUNT 2.71(L) 4.00 - 5.20 mil/cu mm 05/07/2024 6:33 PM COOKER LOADER [facility] HEMOGLOBIN 8.7(L) 12.0 - 16.0 g/dL 05/07/2024 6:33 PM [facility]ER LOADER [facility] HEMATOCRIT 25.4(L) 33.0 - 51.0 % 05/07/2024 6:33 PM [facility] LOADER [facility] MCV 94 80 - 100 fL 05/07/2024 6:33 PM C[employer]ER LOADER [facility] MCH 32.1 26.0 - 34.0 pg 05/07/2024 6:33 PM C[employer] LOADER [facility] MCHC 34.3 32.0 - 36.0 g/dL 05/07/2024 6:33 PM C[employer] LOADER [facility] RDW 23.3(H) 11.5 - 15.5 % 05/07/2024 6:33 PM [facility] LO[employer]ER [facility] PLATELET COUNT 356 140 - 440 thou/cu mm 05/07/2024 6:33 PM C[facility] LOADER [facility] MPV 9.8 6.5 - 11.0 fL 05/07/2024 6:33 PM [facility] [employer] NRBC 2.0 % 05/07/2024 6:33 PM [facility] [employer] ABS NRBC 0.3 thou /cu mm 05/07/2024 6:33 PM [facility] [employer]ER [facility] Blood BLOOD SPECIMEN / Unknown Butterfly / Unknown 05/07/2024 6:20 PM COOKER LOADER 05/07/2024 6:23 PM COOKER LOADER Caryn Rasmussen MD HEMATOLOGY Final Result Performing Organization Address City/[facility] Co de Phone Number [address] [address], [place] [phone] * (ABNORMAL) RETICULOCYTES (05/07/2024 6:20 PM COOKER LOADER) Only the most recent of12 resultswithin the time period is included. RETIC% 20.3(H) 0.5 - 1.5 % 05/07/2024 6:34 PM COOKER LOADER [facility] RETIC (ABSOLUTE) 0.55(H) 0.03 - 0.08 mil/cu mm 05/07/2024 6:34 PM COOKER LOADER [facility] Blood BLOOD SPECIMEN / Unknown Butterfly / Unknown 05/07/2024 6:20 PM COOKER LOADER 05/07/2024 6:23 PM COOKER LOADER Caryn Rasmussen MD HEMATOLOGY Final Result Performing Organization Address City/[facility]/ZIP Co de Phone Number [facility] [address] [place] [address], [place] [phone] * LIPASE (05/07/2024 6:20 PM COOKER LOADER) Only the most recent of2 resultswithin the time period is included. LIPASE 35.9 13.0 - 60.0 IU/L 05/07/2024 6:53 PM [facility] LO[employer]ER [facility] Blood BLOOD SPECIMEN / Unknown Butterfly / Unknown 05/07/2024 6:20 PM COOKER LOADER 05/07/2024 6:23 PM COOKER LOADER Caryn Rasmussen MD CHEMISTRY Final Result [facility] [address] [place] [address], * (ABNORMAL) HEPATIC FUNCTION PANEL (05/07/2024 6:20 PM COOKER LOADER) Only the most recent of2 resultswithin the time period is included. ALBUMIN 4.4 4.0 - 4.9 g/dL 05/07/2024 6:53 PM [facility] [employer]ER [facility] PROTEIN,TOTAL 8.1(H) 6.0 - 8.0 g/dL 05/07/2024 6:53 PM [facility] LOADER [facility] BILIRUBIN,TOTAL 2.2(H) 0.0 - 1.2 mg/dL 05/07/2024 6:53 PM [facility] LO[employer]ER [facility] BILIRUBIN,DIRECT 0.9(H) 0.0 - 0.2 mg/dL 05/07/2024 6:53 PM [facility] LO[employer]ER [facility] BILIRUBIN,INDIRE CT 1.3(H) 0.2 - 0.8 mg/dL 05/07/2024 6:53 PM [facility] [employer] ALK PHOSPHATASE 120(H) 35 - 104 IU/L 05/07/2024 6:53 PM [facility] [employer] ALT (SGPT) 28 10 - 35 IU/L 05/07/2024 6:53 PM [facility] [employer]ER [facility] AST (SGOT) 46(H) 10 - 35 IU/L 05/07/2024 6:53 PM [facility] [employer]ER [facility] Blood BLOOD SPECIMEN / Unknown Butterfly / Unknown 05/07/2024 6:20 PM COOKER LOADER 05/07/2024 6:23 PM COOKER LOADER Caryn Rasmussen MD CHEMISTRY Final Result [facility] [address] [place] [address], * CT CHEST PE STUDY (05/04/2024 1:46 AM COOKER LOADER) Anatomical Region Laterality Modality CHEST, THORAX, HEART Computed To mography 05/04/2024 1:46 AM COOKER LOADER Impressions 05/04/2024 2:01 AM COOKER LOADER 1. No pulmonary embolus. 2. Multiple small bilateral pulmonary nodules and mild enlargement of right hilar lymph nodes not significantly changed from the recent study of 04/06/2024. Differential diagnosis includes inflammatory/infectious and neoplastic etiologies. Narrative 05/04/2024 2:01 AM COOKER LOADER For Patients: As a result of the Century Cures Act, medical imaging exams and procedure reports are released immediately into your electronic medical record. You may view this report before your referring provider. If you have questions, please contact your health care provider. EXAM: CT CHEST PE STUDY LOCATION: [facility] DATE: 05/04/2024 INDICATION: Pulmonary embolism (PE) suspected, [...] provider. EXAM: CT CHEST PE STUDY LOCATION: [facility] DATE: 05/04/2024 INDICATION: Pulmonary embolism (PE) suspected, [...] EXAM REFLEXED PER CRITERIA (05/04/2024 12:07 AM COOKER LOADER) COLOR Yellow Yellow Color 05/04/2024 12:18 AM [facility] [employer]ER [facility] CLARITY Clear Clear Clarity 05/04/2024 12:18 AM [employer] [employer]ER [facility] SPECIFIC GRAVITY,URINE 1.015 1.010, 1.015, 1.020, 1.025 05/04/2024 12:18 AM [facility] [employer] PH,URINE 7.0 6.0, 7.0, 8.0, 5.5, 6.5, 7.5, 8.5 05/04/2024 12:18 AM [facility] [employer] UROBILINOGEN,Q UALITATIVE Normal Normal EU/dl 05/04/2024 12:18 AM [facility] [employer] PROTEIN, URINE Negative Negative mg/dL 05/04/2024 12:18 AM [facility] GLUCOSE, URINE Negative Negative mg/dL 05/04/2024 12:18 AM [facility] KETONES,URINE Negative Negative mg/dL 05/04/2024 12:18 AM [facility] [employer] BILIRUBIN,URIN E Negative Negative 05/04/2024 12:18 AM [facility] [employer] OCCULT BLOOD,URINE Negative Negative 05/04/2024 12:18 AM [facility] NITRITE Negative Negative 05/04/2024 12:18 AM [facility] [employer] LEUKOCYTE ESTERASE Negative Negative 05/04/2024 12:18 AM [facility] [employer] Urine URINE SPECIMEN / Unknown Non-Blood / Unknown 05/04/2024 12:07 AM COOKER LOADER 05/04/2024 12:13 AM COOKER LOADER Anika Mccracken MD URINE Final Resu lt [facility] [address] [place] [address], * URINE (05/04/2024 12:07 AM COOKER LOADER) ,URIN E Negative Negative 05/04/2024 12:22 AM [facility] [employer] Urine URINE SPECIMEN / Unknown Non-Blood / Unknown 05/04/2024 12:07 AM COOKER LOADER 05/04/2024 12:13 AM COOKER LOADER Anika Mccracken MD URINE Final Resu lt [facility] [address] [place] [address], * S PATH REVIEW HEMATOLOGY (05/03/2024 11:52 PM COOKER LOADER) PATH COMMENT Comment: 05/06/2024 7:30 AM COOKER LOADER [facility] Comment:Frequent sickle cell s. Reviewed by Dr. Richar Huffman on 05/05/2024 Blood BLOOD SPECIMEN / Unknown IV Start / Unknown 05/03/2024 11:52 PM COOKER LOADER 05/03/2024 11:52 PM COOKER LOADER Anika Mccracken MD LABORATORY Final Resu lt [facility] [address] [place] [address], [place] * (ABNORMAL) MANUAL DIFFERENTIAL (05/03/2024 11:52 PM COOKER LOADER) Only the most recent of3 resultswithin the time period is included. % NEUTROPHILS 55.0 % 05/04/2024 12:13 AM [facility] [employer] % LYMPHOCYTES 33.0 % 05/04/2024 12:13 AM [facility] [employer] % MONOCYTES 10.0 % 05/04/2024 12:13 AM [facility] [employer] % EOSINOPHILS 2.0 % 05/04/2024 12:13 AM [facility] [employer] % BASOPHILS 0.0 % 05/04/2024 12:13 AM [facility] [employer] NEUTROPHILS ABSOLUTE 10.6(H) 1.7 - 7.0 thou/cu mm 05/04/2024 12:13 AM [facility] [employer] LYMPHOCYTES ABSOLUTE 6.3(H) 0.9 - 2.9 thou/cu mm 05/04/2024 12:13 AM [facility] [employer] MONOCYTES ABSOLUTE 1.9(H) <0.9 thou/cu mm 05/04/2024 12:13 AM [facility] [employer]ER [facility] EOSINOPHILS ABSOLUTE 0.4 <0.5 thou/cu mm 05/04/2024 12:13 AM [facility] [employer] BASOPHILS ABSOLUTE 0.0 <0.3 thou/cu mm 05/04/2024 12:13 AM [facility] [employer] Blood BLOOD SPECIMEN / Unknown IV Start / Unknown 05/03/2024 11:52 PM COOKER LOADER 05/03/2024 11:52 PM COOKER LOADER us Anika Mccracken MD HEMATOLOGY Final Resu lt [facility] [place] [address], * (ABNORMAL) D-DIMER,QUANTITATIVE (05/03/2024 11:52 PM COOKER LOADER) D-DIMER,QUANTI TATIVE 1.51(H) <=0.49 FEU mcg/mL 05/04/2024 12:28 AM COOKER LOADER [facility] Blood BLOOD SPECIMEN / Unknown IV Start / Unknown 05/03/2024 11:52 PM COOKER LOADER 05/03/2024 11:52 PM COOKER LOADER Narrative [facility] - 05/04/2024 12:28 AM COOKER LOADER The cut off value for exclusion [...] lt [facility] [address] [place] [address], [place] [phone] * TYPE AND SCREEN ONLY (04/20/2024 4:43 PM COOKER LOADER) Only the most recent of2 resultswithin the time period is included. [facility] A Rh Positive 04/20/2024 5:20 PM COOKER LOADER [facility] Comment:Comment: Performed b y [facility], [address] [place] [address] ANTIBODY SCREEN Negative Negative 04/20/2024 5:20 PM COOKER LOADER [facility] Comment:Comment: Performed b y [facility], [address] [place] [address] SPECIMEN EXPIRATION DATE/TIME 04/23/24 23:59 04/20/2024 5:20 PM COOKER LOADER [facility] Blood BLOOD SPECIMEN / Unknown Butterfly / Unknown 04/20/2024 4:43 PM COOKER LOADER 04/20/2024 4:48 PM COOKER LOADER us Maria Teresa [facility] Final Result [facility] [address] [place] [address], [place] [phone] [facility] [address] [place] [address] * XR ANKLE 3 VIEWS LEFT (04/18/2024 5:09 AM COOKER LOADER) Anatomical Region Laterality Modality ANKLES, ANKLE L Computed Radiogr aphy 04/18/2024 5:09 AM COOKER LOADER Impressions 04/18/2024 5:11 AM COOKER LOADER Normal joint spaces and alignment. No fracture. No significant soft tissue swelling. Ankle mortise intact. Narrative 04/18/2024 5:11 AM COOKER LOADER For Patients: As a result of the Cures Act, medical imaging exams and procedure reports are released immediately into your electronic medical record. You may view this report before your referring provider. If you have questions, please contact your health care provider. EXAM: XR ANKLE 3 VIEWS LEFT LOCATION: [facility] DATE: 04/18/2024 INDICATION: Pain COMPARISON: None. Procedure Note Jayden Correa MD - 04/18/2024 For Patients: As a result of the Cures Act, medical imagingexams and procedure reports are released immediately into your electronicmedical record. You may view this report before your referring provider.If you have questions, please contact your health care provider. EXAM: XR ANKLE 3 VIEWS LEFT LOCATION: [facility] DATE: 04/18/2024 INDICATION: Pain COMPARISON: None. IMPRESSION: Normal joint spaces and alignment. No fracture. No significant soft tissueswelling. Ankle mortise intact. Elizabeth Duffy MD GENERAL IMAGING Final Res ult * C-REACTIVE PROTEIN (04/18/2024 4:59 AM COOKER LOADER) Only the most recent of3 resultswithin the time period is included. C-REACTIVE PROTEIN <0.3 <0.5 mg/dL 04/18/2024 5:43 AM COOKER LOADER [facility] Blood BLOOD SPECIMEN / Unknown Butterfly / Unknown 04/18/2024 4:59 AM COOKER LOADER 04/18/2024 5:02 AM COOKER LOADER Elizabeth Duffy MD CHEMISTRY Final Res ult [facility] [place] [address], [place] [phone] * SEDIMENTATION RATE (04/18/2024 4:58 AM COOKER LOADER) Only the most recent of3 resultswithin the time period is included. SEDIMENTATION RATE 6 <20 mm/hr 2023 5:17 AM COOKER LOADER [facility] Blood BLOOD SPECIMEN / Unknown Butterfly / Unknown 04/18/2024 4:58 AM COOKER LOADER 04/18/2024 5:02 AM COOKER LOADER us Elizabeth Duffy MD HEMATOLOGY Final Res ult [facility] [address] [place] [address], * XR HIP 2 OR 3 VIEWS W PELVIS LEFT (04/15/2024 6:34 PM COOKER LOADER) Anatomical Region Laterality Modality HIPS, HIPL, Pelvis Computed Radi ography 04/15/2024 6:34 PM COOKER LOADER Impressions 04/15/2024 6:46 PM COOKER LOADER No acute fracture or subluxation. Sclerosis of the left femoral head in keeping with osteonecrosis. No articular surface collapse. There is additional patchy sclerosis throughout the pelvis greatest in the right iliac bone which may represent additional osteonecrosis. Hip joint spaces are grossly preserved. 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 Narrative 04/15/2024 6:46 PM COOKER LOADER For Patients: As a result of the Cures Act, medical imaging exams and procedure reports are released immediately into your electronic medical record. You may view this report before your referring provider. If you have questions, please contact your health care provider. EXAM: XR HIP 2 OR 3 VIEWS W PELVIS LEFT LOCATION: [facility] DATE: 04/15/2024 INDICATION: left hip pain, history [...] US ABDOMEN LIMITED GALLBLADDER (04/06/2024 9:38 PM COOKER LOADER) Anatomical Region Laterality Modality Abdomen Ultrasound 04/06/2024 9:38 PM COOKER LOADER Impressions 04/06/2024 9:46 PM COOKER LOADER 1. Cholelithiasis. Otherwise negative. Narrative 04/06/2024 9:46 PM COOKER LOADER For Patients: As a result of [...] provider. EXAM: US ABDOMEN LIMITED GALLBLADDER LOCATION: [facility] DATE: 04/06/2024 INDICATION: Right upper quadrant pain [...] (ABNORMAL) COMP METABOLIC PANEL (04/06/2024 8:55 PM COOKER LOADER) SODIUM 140 136 - 145 mmol/L 04/06/2024 9:20 PM COOKER LOADER [facility] POTASSIUM 4.5 3.5 - 5.1 mmol/L 04/06/2024 9:20 PM COOKER LOADER [facility] CHLORIDE 108(H) 98 - 107 mmol/L 04/06/2024 9:20 PM COOKER LOADER [facility] CO2,TOTAL 21(L) 22 - 29 mmol/L 04/06/2024 9:20 PM COOKER LOADER [facility] ANION GAP 11 5 - 18 04/06/2024 9:20 PM COOKER LOADER [facility] GLUCOSE 103(H) 70 - 99 mg/dL 04/06/2024 9:20 PM COOKER LOADER [facility] CALCIUM 9.6 8.8 - 10.4 mg/dL 04/06/2024 9:20 PM COOKER LOADER [facility] Comment: Reference ranges for this test were updated on 02/29/2024 to reflect our healthy population more accurately. Reference range changes are not retroactively applied to results, but previous results using the same methodology can be interpreted in the context of the new reference range. BUN 8 6 - 20 mg/dL 04/06/2024 9:20 PM COOKER LOADER [facility] CREATININE 0.78 0.50 - 0.90 mg/dL 04/06/2024 9:20 PM COOKER LOADER [facility] BUN/CREAT RATIO 10 10 - 20 9:20 PM COOKER LOADER [facility] eGFR >90 >90 mL/min/1.7 3m2 04/06/2024 9:20 PM COOKER LOADER [facility] Comment:As of 2021, eG FR is calculated by the CKD-EPI creatinine equation without race adjustment. eGFR can be influenced by muscle mass, exercise, and diet. The reported eGFR is an estimation only and is only applicable if the renal function is stable. ALBUMIN 4.7 4.0 - 4.9 g/dL 04/06/2024 9:20 PM COOKER LOADER [facility] PROTEIN,TOTAL 8.6(H) 6.0 - 8.0 g/dL 04/06/2024 9:20 PM COOKER LOADER [facility] BILIRUBIN,TOTAL 1.6(H) 0.0 - 1.2 mg/dL 04/06/2024 9:20 PM COOKER LOADER [facility] ALK PHOSPHATASE 124(H) 35 - 104 IU/L 04/06/2024 9:20 PM COOKER LOADER [facility] ALT (SGPT) 36(H) 10 - 35 IU/L 04/06/2024 9:20 PM COOKER LOADER [facility] AST (SGOT) 37(H) 10 - 35 IU/L 04/06/2024 9:20 PM COOKER LOADER [facility] Blood BLOOD SPECIMEN / Unknown Butterfly / Unknown 04/06/2024 8:55 PM COOKER LOADER 04/06/2024 9:00 PM COOKER LOADER Tanmay Sami S[facility] CHEMISTRY Final R esult [facility] [address] [place] [address], * TROPONIN T (HS) ACUTE W/2HR REFLEX (04/04/2024 6:54 PM COOKER LOADER) TROPONIN T HS <6 6-10 ng/L ng/L 04/04/2024 7:31 PM COOKER LOADER [facility] Blood BLOOD SPECIMEN / Unknown Butterfly / Unknown 04/04/2024 6:54 PM COOKER LOADER 04/04/2024 6:57 PM COOKER LOADER Narrative [facility] - 04/04/2024 7:31 PM COOKER LOADER hs-cTnT (Elecsys Troponin T Gen 5) [...] Juhi Patel PA CHEMISTRY Final Re sult [facility] [address] [facility] [place] [address], from Last 3 Months Insurance [place] [facility] [place] [id number] [facility] Advance Directives * Full Code (Latest Code Status on File) Date Activated Date Inactivated Comments 03/28/2024 10:36 PM 03/30/2024 11:39 AM Question Answer Comments Code Status Discussion: Reviewed Preferences * Full Code Date Activated Date Inactivated Comments 03/16/2024 1:29 AM 03/18/2024 1:58 PM Question Answer Comments Code Status Discussion: Reviewed Preferences Care Teams Book Cleaner Relationship Specialty Start Date End Date Veronica Joseph MD [address] [place] [address] PCP - General Family Practice 03/29/24
--- OUTSIDE RECORDS SUMMARY | 2024-06-30 23:53 | XMS_ITS | Encounter Summary ---
Author Organization [facility] Address [address] [place] [address] Care Team Providers Care Vice President Sales And Marketing Name Role Phone No Ref-Primary, Physician Primary Care Provider Mor Ramsey Unavailable Unavailable Case Samuel MD Unavailable [phone] Reason for Referral * Diagnostic Imaging MRI (Routine) - Pending Review Specialty Diagnoses / Procedures Referred By Shahid pendleton Referred To Contact Radiology. 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 If you don't hear from a risk control representative within 2 business days, please call . Additional Information: History of hemoglobin SS disease. History of retinopathy reported from care in [place] but not in a long time. Requesting eye exam for retinopathy Comments Please be aware that coverage of these services is subject to the terms and limitations of your health insurance plan. Call member services at your health plan with any benefit or coverage questions. [facility] will call you to coordinate your care as prescribed by your provider. If you don't hear from a risk control representative within 2 business days, please call . 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 Requesting eval for further management per ortho's expertise. Scheduling Instructions: [facility]opedic Burn Table Operator will call you to coordinate your care as prescribed by your provider. A risk control representative will call you within 2 business days to help you schedule your appointment, or you may contact the Burn Table Operator Operations Vice President at: . Comments Please be aware that coverage of these services is subject to the terms and limitations of your health insurance plan. Call member services at your health plan with any benefit or coverage questions. [facility] Burn Table Operator will call you to coordinate your care as prescribed by your provider. A risk control representative will call you within 2 business days to help you schedule your appointment, or you may contact the Burn Table Operator Operations Vice President at: . 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 If you don t hear from a risk control representative within 2 business days, please call . Additional Information: History of symptomatic gallstones due to sickle cell disease. Previous workup in [place], [place] ([facility]) prior to moving here. Was moving towards cholecystectomy but ended up moving sooner. Requesting eval for gallstones. Comments Please be aware that coverage of these services is subject to the terms and limitations of your health insurance plan. Call member services at your health plan with any benefit or coverage questions. [facility] will call you to coordinate your care as prescribed by the provider. If you don t hear from a risk control representative within 2 business days, please call . UCTION LEADER Reason for Visit * Reason Comments Oncology Clinic Visit Sickle cell pain c risis * Consultation (Urgent: 3-5 Days) - Pending Review Specialty Diagnoses / Procedures Referred By Contac t Referred To Contact Medical Oncology Diagnoses 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 (H) Mor Ramsey Referral ID Status Reason Start Date Expiration Date V isits Requested Visits Authorized [id number] Pending Review 03/28/2024 03/28/2025 1 1 Encounter Details Date Type Department Care Team (Late st Contact Info) Description 05/01/2024 11:00 AM PRODUCTION LEADER Oncology Visit [facility] [address] [place] [address] Case Samuel MD [address] [facility] [address], [address] [place] [address] History of transfusion (Primary Dx); [...] on file Legal Sex Female 8:25 AM PRODUCTION LEADER Gender Identity Not on file Sexual Orientation Not on file documented as of this encounter Last Filed Vital Signs Vital Sign Reading Time Taken Comments Blood Pressure 93/62 05/01/2024 10:50 AM PRODUCTION LEADER Pulse 93 05/01/2024 10:50 AM PRODUCTION LEADER Temperature 36.8 C (98.2 F) 05/01/2024 10:50 AM PRODUCTION LEADER Respiratory Rate 16 05/01/2024 10:50 AM PRODUCTION LEADER Oxygen Saturation 98% 05/01/2024 10:50 AM PRODUCTION LEADER Inhaled Oxygen Concentration - - Weight 51 kg (112 lb 6.4 oz) 05/01/2024 10:50 AM PRODUCTION LEADER Height 159.9 cm (5' 2.95) 05/01/2024 10:[address] Body Mass Index 19.94 05/01/2024 10:50 AM PRODUCTION LEADER documented in this encounter Progress Notes * [...] She said that she was born in [place] but moved throughout her childhood because her dad was in the . She is the youngest of 9 children she said, though she is the only one with sickle cell disease. Among other places, she was living in [place] for a time and then moved to [place]. It was there that shemet her boyfriend. She ultimately moved back to [place] and he came with her. It was there that they had a daughter Chanda, now 2 years old. That was a difficult for her, and she feelslike she never wants to be again. She was living in [place], [place] and receiving care at [facility], though she did not get the sense that cryptologist there was super comfortable with sickle cell [...] about 3 weeks ago. She moved to [place] about 2 months ago. Her boyfriend is [...] worked up for symptomatic gallstones back in [place], but there were some delays in getting a cholecystectomy and by the time it was getting scheduled, they were moving to [place]. She reports that she has had a [...] them both so she can be a [id number] mom. Sickle Cell Disease Comprehensive Checklist Stroke/silent [...] titrate as needed and notify the primary cryptologist via [employer] message if changes to the plan below are needed. Plan last reviewed with patient: 05/01/2024 Patient background: 29 yo F, recently moved from [place] Sickle Cell Disease History Primary Lead Burner/ELECTRICAL PROSPECTING ENGINEER/PA: Lizzie Genotype: SS Acute Pain Crisis Treatment: [...] Received from [facility] Social Connections Do you often [...] Wt 51 kg (112 lb 6.4 oz) YoH269% BMI 19.94 kg/m?? GENERAL APPEARANCE: healthy, alert [...] she knows. Even though she lives in [place], she is very willing to come to the [employer] to get her care and use the [...] around the hip and femur strong. -Orthopedic it application support analyst referral placed. Will defer to them [...] per the note Case Samuel MD Classical Lead Burner Division of Hematology, Oncology, and Transplantation [facility] Physicians [facility] UCTION LEADER UCTION LEADER documented in this encounter Nursing Notes * [...] Provider was notified. Pharmacy name entered into [employer]: [facility] [address] [place], [place] - [facility] [place], [place] - [address] [facility] Frailty Screening: Is the patient here for a new oncology consult visit in cancer care? 2. No Clinical concerns: Patient states no new concerns to discuss with provider. 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) Expected: 05/02/2024 (Approximate), Expires: 05/02/2025 Scheduled Referrals Name Type Priority Associated Diagnoses Orde r Schedule Adult GI Burn Table Operator Referral - Consult Only Referral Routine: Next available opening 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) Gallstones Expected: 05/01/2024 (Approximate), Expires: 05/01/2025 Orthopedic Burn Table Operator Referral Referral Routine: Next available opening 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 Author Pain Management General On track( 025 12:40 PM PRODUCTION LEADER) Yes Juhi Benson RN Note: Goal Statement: [...] Genotype Red Blood Cell (05/29/2024 11:23 AM PRODUCTION LEADER) See Scanned Result GENOTYPE RED BLOOD CELL-Scanned 05/31/2024 10:16 AM PRODUCTION LEADER [facility] Blood VENOUS LINE / Unknown IVAD (Port) / Unknown 05/29/2024 11:23 AM PRODUCTION LEADER 05/29/2024 11:29 AM PRODUCTION LEADER us Case Samuel MD LAB - BLOOD ORDERABLES [place] [address], [place] [phone] * (ABNORMAL) HGB Eval Reflex to ELP or RBC Solubility (05/29/2024 11:23 AM PRODUCTION LEADER) Hemoglobin A 15.0(L) 95.0 - 97.9 % 05/31/2024 2:46 PM PRODUCTION LEADER [facility] Hemoglobin A2 3.0 2.0 - 3.5 % 05/31/2024 2:46 PM PRODUCTION LEADER [facility] Hemoglobin F 10.8(H) 0.0 - 2.1 % 05/31/2024 2:46 PM PRODUCTION LEADER [facility] Hemoglobin S 71.2(H) 0.0 - 0.0 % 05/31/2024 2:46 PM PRODUCTION LEADER [facility] Hemoglobin C 0.0 0.0 - 0.0 % 05/31/2024 2:46 PM PRODUCTION LEADER [facility] Hemoglobin E 0.0 0.0 - 0.0 % 05/31/2024 2:46 PM PRODUCTION LEADER [facility] Hemoglobin - Other 0.0 0.0 - 0.0 % 05/31/2024 2:46 PM PRODUCTION LEADER [facility] Hemoglobin Evaluation See Note 05/31/2024 2:46 PM PRODUCTION LEADER [facility] Comment: Impression: Hb S present Laboratory [...] by Alpha Globin (HBA1 and HBA2) Deletion/Duplication ([facility] test #[id number]) should be considered. Hb S/beta-plus thalassemia is typically characterized by more Hb S than Hb A with the presence of microcytosis. If microcytosis is present and Hb S/beta-plus thalassemia is suspected, Beta Globin (HBB) Sequencing ([facility] test #[id number]) is suggested. Hemoglobin analysis should be offered [...] developed and its performance characteristics determined by [facility]. It has not been cleared or approved by the U.S. Food and Drug Administration. This test was performed in a CLIA-certified laboratory and is intended for clinical purposes. Sickle Cell Solubility Reflex Positive(A) 05/31/2024 2:46 PM PRODUCTION LEADER [facility] Comment: INTERPRETIVE INFORMATION: Sickle Cell Solubility Reflex Not Performed: Solubility testing for Hemoglobin S not indicated. 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 Additional charges apply. Conf Previous: Positive for Hemoglobin S by HPLC. Solubility testing performed previously and not repeated with this submission. Hgb Capillary Electrophoresis Reflex Performed 05/31/2024 2:46 PM PRODUCTION LEADER [facility] Comment: INTERPRETIVE INFORMATION: Hgb Capillary Electrophoresis Reflex Not Performed: Confirmation by Capillary Electrophoresis not indicated. Performed: Results confirmed by Capillary Electrophoresis. Additional charges apply. Conf Previous: Capillary Electrophoresis confirmation performed as part of a previous submission. Confirmation not repeated with this submission. Performed By: [facility] [address] [place] [address] Expanding Machine Operator: Devon Healy MD, PhD CLIA Number: [id number] Blood VENOUS LINE / Unknown IVAD (Port) / Unknown 05/29/2024 11:23 AM PRODUCTION LEADER 05/29/2024 11:30 AM PRODUCTION LEADER Case Samuel MD LAB - BLOOD ORDERABLES Fi nal Result Performing Organization Address [facility]/ZIP Co de Phone Number [facility] [address] [place] [phone] [phone] * (ABNORMAL) Ferritin (05/29/2024 11:23 AM PRODUCTION LEADER) Ferritin 1,559(H) 6 - 175 ng/mL 05/29/2024 12:43 PM PRODUCTION LEADER [facility] Blood VENOUS LINE / Unknown IVAD (Port) / Unknown 05/29/2024 11:23 AM PRODUCTION LEADER 05/29/2024 11:29 AM PRODUCTION LEADER Case Samuel MD LAB - BLOOD ORDERABLES Fi nal Result [facility] [address] 1st [place] [address] * (ABNORMAL) Routine UA with micro reflex to culture (05/29/2024 11:23 AM PRODUCTION LEADER) Color Urine Yellow Colorless, Straw, Light Yellow, Yellow 05/29/2024 11:41 AM PRODUCTION LEADER [facility] Appearance Urine Slightly Cloudy(A) Clear 05/29/2024 11:41 AM PRODUCTION LEADER [facility] Glucose Urine Negative Negative mg/dL 05/29/2024 11:41 AM PRODUCTION LEADER [facility] Bilirubin Urine Negative Negative 11:41 AM [facility] Ketones Urine Negative Negative mg/dL 05/29/2024 11:41 AM [facility] Specific [place] Urine 1.013 1.003 - 1.035 05/29/2024 11:41 AM [facility] Blood Urine Negative Negative 05/29/2024 11:41 AM [facility] pH Urine 7.0 5.0 - 7.0 05/29/2024 11:41 AM [facility] Protein Albumin Urine Negative Negative mg/dL 05/29/2024 11:41 AM [facility] Urobilinogen Urine Normal Normal, 2.0 mg/dL 05/29/2024 11:41 AM [facility] Nitrite Urine Negative Negative 05/29/2024 11:41 AM [facility] Leukocyte Esterase Urine Moderate(A) Negative 05/29/2024 11:41 AM PRODUCTION LEADER [facility] Mucus Urine Present(A) None Seen /LPF 05/29/2024 11:41 AM PRODUCTION LEADER [facility] RBC Urine 6(H) <=2 /HPF 05/29/2024 11:41 AM PRODUCTION LEADER [facility] WBC Urine 3 <=5 /HPF 05/29/2024 11:41 AM [facility] Squamous Epithelials Urine 18(H) <=1 /HPF 05/29/2024 11:41 AM [facility] Urine URINE SPECIMEN OBTAINED BY CLEAN CATCH PROCEDURE / Unknown Non-blood Collection / Unknown 05/29/2024 11:23 AM PRODUCTION LEADER 05/29/2024 11:29 AM PRODUCTION LEADER Narrative [facility] - 05/29/2024 11:41 AM PRODUCTION LEADER Urine Culture ordered based on laboratory criteria us Case Samuel MD LAB - URINE ORDERABLES Fi nal Result [facility] [address] [facility] 1st [place] [address] * (ABNORMAL) Comprehensive metabolic panel (05/29/2024 11:23 AM PRODUCTION LEADER) Sodium 139 135 - 145 mmol/L 05/29/2024 11:58 AM [facility] Potassium 4.2 3.4 - 5.3 mmol/L 05/29/2024 11:58 AM [facility] Carbon Dioxide (CO2) 24 22 - 29 mmol/L 05/29/2024 11:58 AM [facility] Anion Gap 10 7 - 15 mmol/L 05/29/2024 11:58 AM [facility] Urea Nitrogen 9.2 6.0 - 20.0 mg/dL 05/29/2024 11:58 AM [facility] Creatinine 0.75 0.51 - 0.95 mg/dL 05/29/2024 11:58 AM [facility] GFR Estimate >90 >60 mL/min/1.7 3m2 05/29/2024 11:58 AM [facility] Comment:eGFR calculated usin g 2020 CKD-EPI equation. Calcium 8.9 8.8 - 10.4 mg/dL 05/29/2024 11:58 AM [facility] Chloride 105 98 - 107 mmol/L 05/29/2024 11:58 AM [facility] Glucose 109(H) 70 - 99 mg/dL 05/29/2024 11:58 AM [facility] Alkaline Phosphatase 83 40 - 150 U/L 05/29/2024 11:58 AM [facility] AST 49(H) 0 - 45 U/L 05/29/2024 11:58 AM [facility] ALT 21 0 - 50 U/L 05/29/2024 11:58 AM [facility] Protein Total 7.3 6.4 - 8.3 g/dL 05/29/2024 11:58 AM [facility] Albumin 4.1 3.5 - 5.2 g/dL 05/29/2024 11:58 AM [facility] Bilirubin Total 2.2(H) <=1.2 mg/dL 05/29/2024 11:58 AM [facility] Blood VENOUS LINE / Unknown IVAD (Port) / Unknown 05/29/2024 11:23 AM PRODUCTION LEADER 05/29/2024 11:29 AM PRODUCTION LEADER Case Samuel MD LAB - BLOOD ORDERABLES Fi nal Result Performing Organization Address [facility] Co de Phone Number [facility] [address] [place] [address] * (ABNORMAL) Reticulocyte count (05/29/2024 11:23 AM PRODUCTION LEADER) % Reticulocyte 29.8(H) 0.5 - 2.0 % 05/29/2024 12:00 PM PRODUCTION LEADER [facility] Absolute Reticulocyte 0.631(H) 0.025 - 0.095 10e6/uL 05/29/2024 12:00 PM PRODUCTION LEADER [facility] Blood VENOUS LINE / Unknown IVAD (Port) / Unknown 05/29/2024 11:23 AM PRODUCTION LEADER 05/29/2024 11:29 AM PRODUCTION LEADER Case Samuel MD LAB - BLOOD ORDERABLES Fi nal Result Performing Organization Address [facility] Co de Phone Number [facility] [address] [place] [address] * (ABNORMAL) Vitamin D deficiency screening (04/28/2024 1:50 AM PRODUCTION LEADER) Vitamin D, Total (25-Hydroxy) 8(L) 20 - 50 ng/mL 05/01/2024 6:42 PM PRODUCTION LEADER [facility] Comment:severe deficiency Blood BLOOD SPECIMEN / Unknown Venipuncture / Unknown 04/28/2024 1:50 AM PRODUCTION LEADER 04/28/2024 1:53 AM PRODUCTION LEADER Narrative [facility] - 05/01/2024 6:42 PM PRODUCTION LEADER Season, race, dietary intake, and treatment affect the concentration of 67-yszorgj-Quocybd D. Values may decrease during winter months and increase during summer months. Vitamin D determination is routinely performed by an immunoassay specific for 25 hydroxyvitamin D3. If an individual is on vitamin D2(ergocalciferol) supplementation, please specify 25 [place] vitamin D2 and D3 level determination by LCMSMS test VITD23. us Case Samuel MD LAB - BLOOD ORDERABLES Fi nal Result [facility] [place] [facility] Lab [address] [facility], [address] [place] [address], [place] documented in this encounter Visit Diagnoses Diagnosis [...] Out COVID-19 05/08/2024 05/08/2024 05/08/2024 8:18 PM PRODUCTION LEADER Rule Out COVID-19 05/16/2024 05/16/2024 05/16/2024 10:46 PM PRODUCTION LEADER documented as of this encounter Care Teams Vice President Sales And Marketing Relationship Specialty Start Date End Date No Ref-Primary, Physician PCP - General 03/15/24 06/17/24 Mor Ramsey Medical Student 04/03/24 Case Samuel MD [address] [place] [address] [address], [address] [place] [phone] Assigned Pediatric Specialist Provider 05/18/24 documented as of this encounter
--- OUTSIDE RECORDS SUMMARY | 2024-06-30 23:53 | XMS_ITS | Encounter Summary ---
Author Organization [place] Address [address] [place] [address]. [place] [address] Care Team Providers Care Tankage Grinder Operator Name Role Phone [employer] Unavailable Unavailable Case Samuel MD Unavailable [phone] Juhi Benson RN Unavailable Unavailable Veronica Joseph MD Primary Care Provider [phone] Reason for Visit * Reason Onset Date Comments Refill Request 06/29/2024 Encounter Details Date Type Department Care Team (Late st Contact Info) Description 06/29/[address] [place] [address] Case Samuel MD [address] [place] [address] [address], [address] [place], [place] [id number] Refill Request Social History Tobacco Use Types [...] file Legal Sex Female 8:25 AM ENGINEERING ASSOCIATE Gender Identity Not on file Sexual [...] and by whom: 06/15/[address] Samuel RECORDER HELPER SEISMOGRAPH Reviewed: no access Send to provider: Dr. Samuel and ESTEVAN Reynaga. NEERING ASSOCIATE documented in this encounter Plan of Treatment Upcoming Encounters Date Type Department Care Team (Late st Contact Info) Description 07/10/2024 11:30 AM CDT Oncology Visit [facility] [address] [place] [address] Case Samuel MD [address] [facility] 484, [address] [place] [address] documented as of this encounter Goals Goal Patient Goal Type Associated Problems Recent Progress Patient-Stated? Author Pain Management General On track( 025 12:40 PM ENGINEERING ASSOCIATE) Yes Juhi Benson, RN Note: Goal [...] crisis documented in this encounter Care Teams Tankage Grinder Operator Relationship Specialty Start Date End Date Veronica Joseph MD [address] [place] [address] PCP - General Family Medicine 06/18/24 Mor Ramsey Medical Student 04/03/24 Case Samuel MD [address] [facility] 484, [address] [place] [address] Assigned Pediatric Specialist Provider 05/18/24 Juhi Benson, RN Specialty Receiving Manager Hematology & Oncology 05/29/24 documented as of this encounter
--- OUTSIDE RECORDS SUMMARY | 2024-06-30 23:53 | XMS_ITS | Encounter Summary ---
Author Organization [place] Address [address] [place] [address] Care Team Providers Care Foreign Language Instructor Name Role Phone No Ref-Primary, Physician Primary Care Provider Mor Ramsey Unavailable Unavailable Reason for Visit * Reason Comments Sickle Cell Pain Crisis Encounter Details Date Type Department Care Team ([facility] st Contact Info) Description 05/16/2024 9:41 PM DERMATOLOGY SPECIALIST - 05/17/2024 12:53 AM [facility] Emergency [facility] Emergency Room [facility] [place] [address] Guille Davis, DO [address] [place] [id number] Sickle cell pain crisis (H) Discharge [...] on file Legal Sex Female 8:25 AM DERMATOLOGY SPECIALIST Gender Identity Not on file Sexual Orientation Not on file documented as of this encounter Last Filed Vital Signs Vital Sign Reading Time Taken Comments Blood Pressure 107/62 05/17/2024 12:00 AM DERMATOLOGY SPECIALIST Pulse 93 05/17/2024 12:00 AM DERMATOLOGY SPECIALIST Temperature 36.8 C (98.3 F) 05/16/2024 9:35 PM DERMATOLOGY SPECIALIST Respiratory Rate 15 05/17/2024 12:00 AM DERMATOLOGY SPECIALIST Oxygen Saturation 94% 05/17/2024 12:00 AM DERMATOLOGY SPECIALIST Inhaled Oxygen Concentration - - Weight 52.2 kg (115 lb) 05/16/2024 9:35 PM DERMATOLOGY SPECIALIST Height 154.9 cm (5' 1) 05/16/2024 9:35 PM DERMATOLOGY SPECIALIST Body Mass Index 21.73 05/16/2024 9:35 PM DERMATOLOGY SPECIALIST documented in this encounter Discharge Instructions * Attachments The following attachments cannot be sent through Care Everywhere. * Sickle Cell Crisis ([place]) documented in this encounter Medications at [...] being printed. States she doesn't need them. ATOLOGY SPECIALIST * Obie Schofield RN - 05/17/2024 12:16 AM CST Pt says she'll be good for discharge after this 3rd dose of Dilaudid. Provider notified. Pt is vitally stable and pain under control and ok with the plan of care. All questions were answered. ATOLOGY SPECIALIST * Obie Schofield RN - 05/16/2024 11:40 PM CST Pt received 2nd dose of Dilaudid. Pt says the 1st dose has helped with her pain, bringing it down to 7/10 from 9/10. She has relief from itchiness following Benadryl as well. Pt is resting in bed, onher phone, and denies other needs at this time. On continuous pulse ox. ATOLOGY SPECIALIST * Guille Davis DO - 05/16/2024 9:53 [...] with other provider:Did you involve another provider (fitness consultant, , pharmacy, etc.)?: No Discharge. No [...] Currently Drug use: Never Social History Narrative Utot-ft-ickl mom. Recently moved to [place] from [place], [place]. She is 1 of 9 [...] Social Connections: Socially Integrated (03/28/2024) Received from [facility] [employer] [facility] Social Connections Do you often feel [...] the Xpert Xpress CoV2/Flu/RSV Assay on the [employer] GeneXpert Instrument. This test should be ordered [...] management. This test was validated by the [facility]. These laboratories are certified under the Clinical Laboratory Improvement Amendments of 1988 (CLIA-88) as qualified to perfom high complexity laboratory testing. CBC with platelets + differential Narrative The following orders were created for panel order CBC with platelets + differential. Procedure Abnormality Status --------- ------ CBC with platelets and d...[[id number]] Abnormal Final result RBC and Platelet Morphology[[id number]] Abnormal Final result Please view results for [...] on file Guille Davis D.O. Emergency Medicine [facility] EMERGENCY ROOM [facility] [facility] [address] Dept: [phone] Guille Davis DO 05/17/24 0048 ATOLOGY SPECIALIST * Aminata Farley RN - 05/16/2024 9:37 [...] WDL WDL Cognitive/Neuro/Behavioral WDL Cognitive/Neuro/Behavioral WDL WDL Mobile Coma Scale Best Eye Response 4-->(E4) spontaneous Best Motor Response 6-->(M6) obeys commands Best Verbal Response 5-->(V5) oriented Lester Coma Scale Score 15 ATOLOGY SPECIALIST documented in this encounter Plan of Treatment Upcoming Encounters Date Type Department Care Team (Late st Contact Info) Description 07/10/2024 11:30 AM CDT Oncology Visit [facility] [address] [place] [address] Case Samuel MD [address] [facility] EMERGENCY DEPARTMENT 484, [address] [place] [address] documented as of this encounter Goals Goal Patient Goal Type Associated Problems Recent Progress Patient-Stated? Author Pain Management General On track( 025 12:40 PM DERMATOLOGY SPECIALIST) Yes Juhi Benson, SOFIA Note: Goal [...] AND PLATELET MORPHOLOGY STAT 05/16/2024 10:17 PM DERMATOLOGY SPECIALIST CBC WITH PLATELETS AND DIFFERENTIAL STAT 05/16/2024 10:17 PM DERMATOLOGY SPECIALIST CBC WITH PLATELETS & DIFFERENTIAL STAT 05/16/2024 10:17 PM DERMATOLOGY SPECIALIST BASIC METABOLIC PANEL STAT 05/16/2024 10:17 PM DERMATOLOGY SPECIALIST INFLUENZA A/B, RSV AND SARS-COV2 PCR STAT 05/16/2024 10:00 PM DERMATOLOGY SPECIALIST documented in this encounter Results * (ABNORMAL) RBC and Platelet Morphology (05/16/2024 10:17 PM DERMATOLOGY SPECIALIST) Pathologist [facility] Emergency Department RBC Morphology Confirmed RBC Indices 05/16/2024 10:54 PM DERMATOLOGY SPECIALIST [facility] Platelet Assessment Automated Count Confirmed. Platelet morphology is normal. Automated Count Confirmed. Platelet morphology is normal. JARET 05/16/2024 10:54 PM DERMATOLOGY SPECIALIST [facility] Polychromasia Slight(A) None Seen JARET 05/16/2024 10:54 PM DERMATOLOGY SPECIALIST [facility] Reactive Lymphocytes Present(A) None Seen JARET 05/16/2024 10:54 PM DERMATOLOGY SPECIALIST [facility] Sickle Cells Moderate(A) None Seen JARET 05/16/2024 10:54 PM DERMATOLOGY SPECIALIST [facility] Target Cells Slight(A) None Seen [facility] 05/16/2024 10:54 PM DERMATOLOGY SPECIALIST [facility] Blood BLOOD SPECIMEN / Unknown Venipuncture / Unknown 05/16/2024 10:17 PM DERMATOLOGY SPECIALIST 05/16/2024 10:24 PM DERMATOLOGY SPECIALIST us Guille Davis DO LAB - BLOOD ORDERABLES Fin al Result [facility] [address] [place] [address], [facility] * (ABNORMAL) CBC with platelets and differential (05/16/2024 10:17 PM DERMATOLOGY SPECIALIST) Pathologist [facility] Emergency Department WBC Count 14.0(H) 4.0 - 11.0 10e3/uL 05/16/2024 10:50 PM DERMATOLOGY SPECIALIST [facility] RBC Count 2.40(L) 3.80 - 5.20 10e6/uL 05/16/2024 10:50 PM [facility] Hemoglobin 7.7(L) 11.7 - 15.7 g/dL 05/16/2024 10:50 PM [facility] Hematocrit 21.8(L) 35.0 - 47.0 % 05/16/2024 10:50 PM [facility] MCV 91 78 - 100 fL 05/16/2024 10:50 PM [facility] MCH 32.1 26.5 - 33.0 pg 05/16/2024 10:50 PM [facility] MCHC 35.3 31.5 - 36.5 g/dL 05/16/2024 10:50 PM [facility] RDW 22.4(H) 10.0 - 15.0 % 05/16/2024 10:50 PM [facility] Platelet Count 521(H) 150 - 450 10e3/uL 05/16/2024 10:50 PM [facility] % Neutrophils 55 % 05/16/2024 10:50 PM [facility] % Lymphocytes 25 % 05/16/2024 10:50 PM [facility] % Monocytes 16 % 05/16/2024 10:50 PM [facility] % Eosinophils 1 % 05/16/2024 10:50 PM [facility] % Basophils 1 % 05/16/2024 10:50 PM [facility] % Immature Granulocytes 1 % 05/16/2024 10:50 PM [facility] NRBCs per 100 WBC 2(H) <1 /100 025 10:50 PM [facility] Absolute Neutrophils 7.7 1.6 - 8.3 10e3/uL 05/16/2024 10:50 PM [facility] Absolute Lymphocytes 3.6 0.8 - 5.3 10e3/uL 05/16/2024 10:50 PM [facility] Absolute Monocytes 2.3(H) 0.0 - 1.3 10e3/uL 05/16/2024 10:50 PM [facility] Absolute Eosinophils 0.2 0.0 - 0.7 10e3/uL 05/16/2024 10:50 PM [facility] Absolute Basophils 0.1 0.0 - 0.2 10e3/uL 05/16/2024 10:50 PM [facility] Absolute Immature Granulocytes 0.1 <=0.4 10e3/uL 05/16/2024 10:50 PM [facility] Absolute NRBCs 0.3 10e3/uL 05/16/2024 10:50 PM [facility] Blood BLOOD SPECIMEN / Unknown Venipuncture / Unknown 05/16/2024 10:17 PM DERMATOLOGY SPECIALIST 05/16/2024 10:24 PM DERMATOLOGY SPECIALIST Guille Davis DO LAB - BLOOD ORDERABLES Fin al Result [facility] [address] [place] [address], [facility] * (ABNORMAL) Basic metabolic panel (05/16/2024 10:17 PM DERMATOLOGY SPECIALIST) Sodium 138 135 - 145 mmol/L 05/16/2024 10:42 PM [facility] Potassium 4.3 3.4 - 5.3 mmol/L 05/16/2024 10:42 PM [facility] Chloride 105 98 - 107 mmol/L 05/16/2024 10:42 PM [facility] Carbon Dioxide (CO2) 22 22 - 29 mmol/L 05/16/2024 10:42 PM [facility] Anion Gap 11 7 - 15 mmol/L 05/16/2024 10:42 PM [facility] Urea Nitrogen 12.0 6.0 - 20.0 mg/dL 05/16/2024 10:42 PM [facility] Creatinine 0.80 0.51 - 0.95 mg/dL 05/16/2024 10:42 PM [facility] GFR Estimate >90 >60 mL/min/1.7 3m2 05/16/2024 10:42 PM [facility] Comment:eGFR calculated usin 2020 CKD-EPI equation. Calcium 8.7(L) 8.8 - 10.4 mg/dL 05/16/2024 10:42 PM [facility] Comment:Reference intervals for this test were updated on 11/09/2023 to reflect our healthy population more accurately. There may be differences in the flagging of prior results with similar values performed with this method. Those prior results can be interpreted in the context of the updated reference intervals. Glucose 118(H) 70 - 99 mg/dL 05/16/2024 10:42 PM [facility] Blood BLOOD SPECIMEN / Unknown Venipuncture / Unknown 05/16/2024 10:17 PM DERMATOLOGY SPECIALIST 05/16/2024 10:24 PM DERMATOLOGY SPECIALIST Guille Davis DO LAB - BLOOD ORDERABLES Fin al Result Performing Organization Address City/[facility]/ZIP Co de Phone Number [facility] [address] [place] [address], [facility] * Influenza A/B, RSV and SARS-CoV2 PCR (COVID-19) Nasopharyngeal (05/16/2024 10:00 PM DERMATOLOGY SPECIALIST) Influenza A PCR Negative Negative 05/16/2024 10:46 PM DERMATOLOGY SPECIALIST [facility] Influenza B PCR Negative Negative 05/16/2024 10:46 PM DERMATOLOGY SPECIALIST [facility] RSV PCR Negative Negative 05/16/2024 10:46 PM DERMATOLOGY SPECIALIST [facility] SARS CoV2 PCR Negative Negative 05/16/2024 10:46 PM DERMATOLOGY SPECIALIST [facility] Comment:NEGATIVE: SARS-CoV-2 (COVID-19) RNA not detected, presumed negative. Swab NASOPHARYNGEAL STRUCTURE / Unknown Non-blood Collection / Unknown 05/16/2024 10:00 PM DERMATOLOGY SPECIALIST 05/16/2024 10:02 PM DERMATOLOGY SPECIALIST Narrative [facility] - 05/16/2024 10:46 PM DERMATOLOGY SPECIALIST Testing was performed using the Xpert Xpress CoV2/Flu/RSV Assay on the [employer] GeneXpert Instrument. This test should be ordered [...] management. This test was validated by the [facility]. These laboratories are certified under the Clinical Laboratory Improvement Amendments of 1988 (CLIA-88) as qualified to perfom high complexity laboratory testing. Guille Davis DO LAB - MICRO GENERAL ORDERA BLES Final Result Performing Organization Address City/[facility]/ZIP Co de Phone Number [facility] [address] [place] [address], [facility] documented in this encounter Visit Diagnoses Diagnosis 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 documented in this encounter Administered Medications Inactive Administered Medications - up to 3 most recent administrations Medication Order MAR Action Action Date Dose Rate Site diphenhydrAMINE (BENADRYL) injection 50 mg 50 mg, Intravenous, ONCE, On Wed05/16/24 at 2200, For 1 dose $Given 05/16/2024 10:37 PM DERMATOLOGY SPECIALIST 50 mg HYDROmorphone (DILAUDID) injection 1 mg 1 mg, Intravenous, ONCE, On Wed05/16/24 at 2200, For 1 dose $Given 05/16/2024 10:37 PM DERMATOLOGY SPECIALIST 1 mg HYDROmorphone (DILAUDID) injection 1 mg 1 mg, Intravenous, ONCE, On Wed05/17/24 at 0000, For 1 dose $Given 05/16/2024 11:37 PM DERMATOLOGY SPECIALIST 1 mg HYDROmorphone (DILAUDID) injection 1 mg 1 mg, Intravenous, ONCE, On Wed05/17/24 at 0030, For 1 dose $Given 05/17/2024 12:13 AM DERMATOLOGY SPECIALIST 1 mg documented in this encounter Active and Recently Administered Medications Times are shown in DERMATOLOGY SPECIALIST. Scheduled Medication Order 05/15/2024 05/16/2024 05/17/2024 diphenhydrAMINE [...] Out COVID-19 05/16/2024 05/16/2024 05/16/2024 10:46 PM DERMATOLOGY SPECIALIST documented as of this encounter Care Teams Foreign Language Instructor Relationship Specialty Start Date End Date No Ref-Primary, Physician PCP - General 03/15/24 06/17/24 Mor Ramsey Medical Student 04/03/24 documented as of this encounter
--- OUTSIDE RECORDS SUMMARY | 2024-06-30 23:54 | XMS_ITS | Encounter Summary ---
Author Organization [place] Address [address] [place] [address]. 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 Author Pain Management General On track( 025 12:40 PM STEAM SHOVEL OPERATING ENGINEER) Yes Juhi Benson, RN Note: Goal [...] filedocumented in this encounter Care Teams Manager Group Relationship Specialty Start Date End Date No Ref-Primary, Physician PCP - General 03/15/24 06/17/24 Mor Ramsey Medical Student 04/03/24 Case Samuel MD [address] [place] [address] 484, [address] [place] [address] Assigned Pediatric Specialist Provider 05/18/24 Juhi Benson, RN Specialty [employer] Special Agent Hematology & Oncology 05/29/24 documented as of this encounter
--- OUTSIDE RECORDS SUMMARY | 2024-06-30 23:54 | XMS_ITS | Encounter Summary ---
Author Organization [facility] Address [address] [place] [address] Care Team Providers Care Last Dipper Name Role Phone No Ref-Primary, Physician Primary Care Provider Mor Ramsey Unavailable Unavailable Case Samuel MD Unavailable [phone] Reason for Visit * Reason Comments Sickle Cell Pain Crisis Chest Pain Encounter Details Date Type Department Care Team (Late st Contact Info) Description 05/20/2024 7:30 AM PRIMING POWDER PREMIX BLENDER - 05/20/2024 11:15 AM [facility] Emergency [facility] Emergency Room [address] [place] [address] Stiven Madsen MD [facility] [address], [place] [id number] Sickle cell pain crisis (H) Discharge Disposition: [...] on file Legal Sex Female 8:25 AM PRIMING POWDER PREMIX BLENDER Gender Identity Not on file Sexual Orientation Not on file documented as of this encounter Last Filed Vital Signs Vital Sign Reading Time Taken Comments Blood Pressure 115/59 05/20/2024 11:00 AM PRIMING POWDER PREMIX BLENDER Pulse 76 05/20/2024 11:00 AM PRIMING POWDER PREMIX BLENDER Temperature 37.3 C (99.2 F) 05/20/2024 7:33 AM PRIMING POWDER PREMIX BLENDER Respiratory Rate 20 05/20/2024 11:00 AM PRIMING POWDER PREMIX BLENDER Oxygen Saturation 100% 05/20/2024 11:00 AM PRIMING POWDER PREMIX BLENDER Inhaled Oxygen Concentration - - Weight 50.8 kg (112 lb) 05/20/2024 7:33 AM PRIMING POWDER PREMIX BLENDER Height 154.9 cm (5' 1) 05/20/2024 7:33 AM PRIMING POWDER PREMIX BLENDER Body Mass Index 21.16 05/20/2024 7:33 AM PRIMING POWDER PREMIX BLENDER documented in this encounter Discharge Instructions * Discharge Instructions* Stiven Madsen MD - 05/20/2024 11:08 AM PRIMING POWDER PREMIX BLENDER Please continue working with your clinical dermatologist after this and recent hospital visits. Try to make sure that you are drinking plenty of liquids to keep yourself hydrated. Continue to take your usual pain medications. If you have other concerns specifically productive cough, severe chest pain, shortness of breath, or other immediate concern we should reevaluate in the emergency department. ING POWDER PREMIX BLENDER documented in this encounter Medications at Time [...] in 10 minutes. Message sent to provider. ING POWDER PREMIX BLENDER * Suzanne Cadet RN - 05/20/2024 10:00 AM CST Pt requesting additional medication for pain. Also requesting medication for itching. Message sent to provider. Medicated per provider order. ING POWDER PREMIX BLENDER * Yanna Huerta RN - 05/20/2024 8:43 AM CST IV infiltrated and removed, LES RN coming to try for IV ING POWDER PREMIX BLENDER * Yanna Huerta RN - 05/20/2024 8:10 AM CST Introduced self to patient. Whiteboard updated. Plan of care and length of time discussed with patient. Will continue to monitor. Yanna Huerta RN.......05/20/2024 8:37 AM ING POWDER PREMIX BLENDER * Stiven Madsen MD - 05/20/2024 7:31 [...] cell disease. Radial instantly establishing care in [place] and with several ED visits across the [...] with other provider:Did you involve another provider (school plant consultant, MH, pharmacy, etc.)?: No Discharge. 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 Recently moved to [place] from [place], [place]. She is 1 of 9 [...] Social Connections: Socially Integrated (03/28/2024) Received from [facility] ?.?? & [facility] Social Connections Do you often [...] wave abnormality. Rate: 86 Rhythm: Sinus rhythm [place]: 18 55 25 GA Interval: 154 QRS Interval: 78 QTc Interval: [...] my direction. Stiven Madsen M.D. Emergency Medicine [facility] EMERGENCY ROOM [address] [place] [id number] Dept: [phone] Stiven Madsen MD 05/20/24 1354 ING POWDER PREMIX BLENDER * Stefani Huizar RN - 05/20/2024 7:27 AM CST Pt c/o pain all over body, hx sickle cell and feels like flare up started 2 days ago. Pt also c/o left sided chest pain, pain with taking a deep breath. Pt was seen here yesterday as well for same states did not have chest pain then ING POWDER PREMIX BLENDER ING POWDER PREMIX BLENDER documented in this encounter Plan of Treatment Upcoming Encounters Date Type Department Care Team (Late st Contact Info) Description 07/10/2024 11:30 AM CDT Oncology Visit [facility] [address] [place] [address] Case Samuel MD [address] [facility] [address], [address] [place] [address] documented as of this encounter Goals Goal Patient Goal Type Associated Problems Recent Progress Patient-Stated? Author Pain Management General On track( 025 12:40 PM PRIMING POWDER PREMIX BLENDER) Yes Juhi Benson, SOFIA Note: Goal Statement: [...] CHEST 2 VIEWS STAT 05/20/2024 9:30 AM PRIMING POWDER PREMIX BLENDER EXTRA TUBE STAT 05/20/2024 9:09 AM PRIMING POWDER PREMIX BLENDER EXTRA GREEN TOP (LITHIUM HEPARIN) TUBE STAT 05/20/2024 9:09 AM PRIMING POWDER PREMIX BLENDER RBC AND PLATELET MORPHOLOGY STAT 05/20/2024 9:09 AM PRIMING POWDER PREMIX BLENDER CBC WITH PLATELETS AND DIFFERENTIAL STAT 05/20/2024 9:09 AM PRIMING POWDER PREMIX BLENDER CBC WITH PLATELETS & DIFFERENTIAL STAT 05/20/2024 9:09 AM PRIMING POWDER PREMIX BLENDER RETICULOCYTE COUNT STAT 05/20/2024 9: 09 AM PRIMING POWDER PREMIX BLENDER BASIC METABOLIC PANEL STAT 05/20/2024 9:09 AM PRIMING POWDER PREMIX BLENDER BASIC METABOLIC PANEL STAT 05/20/2024 8:21 AM PRIMING POWDER PREMIX BLENDER ECG 12-LEAD WITH MUSE SJN,SJO,WWH STAT 05/20/2024 7:36 AM PRIMING POWDER PREMIX BLENDER documented in this encounter Results * Chest XR, PA & LAT (05/20/2024 9:30 AM PRIMING POWDER PREMIX BLENDER) Anatomical Region Laterality Modality Chest Digital Radiogra phy 05/20/2024 9:30 AM PRIMING POWDER PREMIX BLENDER Impressions 05/20/2024 9:38 AM PRIMING POWDER PREMIX BLENDER IMPRESSION: Slightly increased bilateral mid to lower lung patchy opacities which may reflect atelectatic changes or pneumonic infiltrates. No pleural effusion. Normal heart size. Multiple H-shaped thoracic vertebra consistent with the history of sickle cell disease. Narrative 05/20/2024 9:38 AM PRIMING POWDER PREMIX BLENDER EXAM: XR CHEST 2 VIEWS LOCATION: [facility] DATE: 05/20/2024 INDICATION: Chest pain, sickle cell patient COMPARISON: Chest x-ray 05/08/2024 Procedure Note Twin Marin MD - 05/20/2024 EXAM: XR CHEST 2 VIEWS LOCATION: [facility] DATE: 05/20/2024 INDICATION: Chest pain, sickle cell [...] RBC and Platelet Morphology (05/20/2024 9:09 AM [facility]) [facility] RBC Morphology Confirmed RBC Indices 05/20/2024 9:[address] [facility] Platelet Assessment Automated Count Confirmed. Platelet morphology is normal. Automated Count Confirmed. Platelet morphology is normal. JARET 05/20/2024 9:[address] [facility] Polychromasia Slight(A) None Seen [facility] 05/20/2024 9:[address] [facility] Reactive Lymphocytes Present(A) None Seen [facility] 05/20/2024 9:[address] [facility] Sickle Cells Moderate(A) None Seen [facility] 05/20/2024 9:[address] [facility] Target Cells Slight(A) None Seen [facility] 05/20/2024 9:[address] [facility] Blood VENOUS LINE / Unknown Venipuncture / Unknown 05/20/2024 9:09 AM [facility] 05/20/2024 9:14 AM [facility] Stiven Madsen MD LAB - BLOOD ORDERABLES Final Result [facility] [address] [place] [address], [facility] * (ABNORMAL) Basic metabolic panel (05/20/2024 9:09 AM [facility]) [facility] Sodium 137 135 - 145 mmol/L 05/20/2024 9:[address] [facility] Potassium 4.8 3.4 - 5.3 mmol/L 05/20/2024 9:[address] [facility] Chloride 105 98 - 107 mmol/L 05/20/2024 9:[address] [facility] Carbon Dioxide (CO2) 22 22 - 29 mmol/L 05/20/2024 9:[address] [facility] Anion Gap 10 7 - 15 mmol/L 05/20/2024 9:[address] [facility] Urea Nitrogen 7.4 6.0 - 20.0 mg/dL 05/20/2024 9:[address] [facility] Creatinine 0.82 0.51 - 0.95 mg/dL 05/20/2024 9:[address] [facility] GFR Estimate >90 >60 mL/min/1.7 3m2 05/20/2024 9:[address] [facility] Comment:eGFR calculated usin 2020 CKD-EPI equation. Calcium 9.3 8.8 - 10.4 mg/dL 05/20/2024 9:[address] [facility] Comment:Reference intervals for this test were updated on 11/09/2023 to reflect our healthy population more accurately. There may be differences in the flagging of prior results with similar values performed with this method. Those prior results can be interpreted in the context of the updated reference intervals. Glucose 107(H) 70 - 99 mg/dL 05/20/2024 9:[address] [facility] Blood VENOUS LINE / Unknown Venipuncture / Unknown 05/20/2024 9:09 AM PRIMING POWDER PREMIX BLENDER 05/20/2024 9:14 AM PRIMING POWDER PREMIX BLENDER Stiven Madsen MD LAB - BLOOD ORDERABLES Final Result Performing Organization Address City/[facility]/ZIP Co de Phone Number [facility] [address] [place], [place] [address] [address], [facility] * Extra Green Top ([place] Heparin) Tube (05/20/2024 9:09 AM PRIMING POWDER PREMIX BLENDER) Pathologist [facility] Hold Specimen JI 05/20/2024 10:[address] [facility] Blood VENOUS LINE / Unknown Venipuncture / Unknown 05/20/2024 9:09 AM PRIMING POWDER PREMIX BLENDER 05/20/2024 9:14 AM PRIMING POWDER PREMIX BLENDER Deshawn Arredondo MD LAB - BLOOD ORDERABLES Liss l Result [facility] [address] [place] [address], [facility] * (ABNORMAL) CBC with platelets and differential (05/20/2024 9:09 AM PRIMING POWDER PREMIX BLENDER) WBC Count 16.0(H) 4.0 - 11.0 10e3/uL 05/20/2024 9:[address] [facility] RBC Count 2.57(L) 3.80 - 5.20 10e6/uL 05/20/2024 9:[address] [facility] Hemoglobin 8.4(L) 11.7 - 15.7 g/dL 05/20/2024 9:[address] [facility] Hematocrit 23.7(L) 35.0 - 47.0 % 05/20/2024 9:[address] [facility] MCV 92 78 - 100 fL 05/20/2024 9:[address] [facility] MCH 32.7 26.5 - 33.0 pg 05/20/2024 9:[address] [facility] MCHC 35.4 31.5 - 36.5 g/dL 05/20/2024 9:[address] [facility] RDW 22.8(H) 10.0 - 15.0 % 05/20/2024 9:[address] [facility] Platelet Count 541(H) 150 - 450 10e3/uL 05/20/2024 9:[address] [facility] % Neutrophils 59 % 05/20/2024 9:[address] [facility] % Lymphocytes 23 % 05/20/2024 9:[address] [facility] % Monocytes 15 % 05/20/2024 9:[address] [facility] % Eosinophils 2 % 05/20/2024 9:[address] [facility] % Basophils 1 % 05/20/2024 9:[address] [facility] % Immature Granulocytes 1 % 05/20/2024 9:[address] [facility] NRBCs per 100 WBC 2(H) <1 /100 025 9:[address] [facility] Absolute Neutrophils 9.4(H) 1.6 - 8.3 10e3/uL 05/20/2024 9:[address] [facility] Absolute Lymphocytes 3.6 0.8 - 5.3 10e3/uL 05/20/2024 9:[address] [facility] Absolute Monocytes 2.4(H) 0.0 - 1.3 10e3/uL 05/20/2024 9:[address] [facility] Absolute Eosinophils 0.3 0.0 - 0.7 10e3/uL 05/20/2024 9:[address] [facility] Absolute Basophils 0.2 0.0 - 0.2 10e3/uL 05/20/2024 9:[address] [facility] Absolute Immature Granulocytes 0.2 <=0.4 10e3/uL 05/20/2024 9:[address] [facility] Absolute NRBCs 0.2 10e3/uL 05/20/2024 9:[address] [facility] Blood VENOUS LINE / Unknown Venipuncture / Unknown 05/20/2024 9:09 AM PRIMING POWDER PREMIX BLENDER 05/20/2024 9:14 AM PRIMING POWDER PREMIX BLENDER Stiven Madsen MD LAB - BLOOD ORDERABLES Final Result Performing Organization Address [facility] de Phone Number [facility] [address] [place] [address] * (ABNORMAL) Reticulocyte count (05/20/2024 9:09 AM PRIMING POWDER PREMIX BLENDER) % Reticulocyte 25.1(H) 0.5 - 2.0 % 05/20/2024 9:[address] [facility] Absolute Reticulocyte 0.646(H) 0.025 - 0.095 10e6/uL 05/20/2024 9:[address] [facility] Blood VENOUS LINE / Unknown Venipuncture / Unknown 05/20/2024 9:09 AM PRIMING POWDER PREMIX BLENDER 05/20/2024 9:14 AM PRIMING POWDER PREMIX BLENDER Stiven Madsen MD LAB - BLOOD ORDERABLES Final Result Performing Organization Address [facility] Co de Phone Number [facility] [address] [place], [place] [address] * (ABNORMAL) Basic metabolic panel (05/20/2024 8:21 AM PRIMING POWDER PREMIX BLENDER) Sodium 136 135 - 145 mmol/L 05/20/2024 8:[address] [facility] Potassium 5.1 3.4 - 5.3 mmol/L 05/20/2024 8:[address] [facility] Chloride 105 98 - 107 mmol/L 05/20/2024 8:[address] [facility] Carbon Dioxide (CO2) 21(L) 22 - 29 mmol/L 05/20/2024 8:[address] [facility] Anion Gap 10 7 - 15 mmol/L 05/20/2024 8:[address] [facility] Urea Nitrogen 7.5 6.0 - 20.0 mg/dL 05/20/2024 8:[address] [facility] Creatinine 0.84 0.51 - 0.95 mg/dL 05/20/2024 8:[address] [facility] GFR Estimate >90 >60 mL/min/1.7 3m2 05/20/2024 8:[address] [facility] Comment:eGFR calculated usin 2020 CKD-EPI equation. Calcium 9.1 8.8 - 10.4 mg/dL 05/20/2024 8:[address] [facility] Comment:Reference intervals for this test were updated on 11/09/2023 to reflect our healthy population more accurately. There may be differences in the flagging of prior results with similar values performed with this method. Those prior results can be interpreted in the context of the updated reference intervals. Glucose 95 70 - 99 mg/dL 05/20/2024 8:[address] [facility] Blood VENOUS LINE / Unknown Venipuncture / Unknown 05/20/2024 8:21 AM PRIMING POWDER PREMIX BLENDER 05/20/2024 8:31 AM [facility] us Stiven Madsen MD LAB - BLOOD ORDERABLES Final Result [facility] [address] [place] [address], [facility] * ECG 12-LEAD WITH MUSE (LHE) (05/20/2024 7:36 AM [facility]) Systolic Blood Pressure 111 mmHg RADIOLOGY RESULTS Diastolic Blood Pressure 56 mmHg RADIOLOGY RESULTS Ventricular Rate 86 BPM RAD IOLOGY RESULTS Atrial Rate 86 BPM RADIOLOG Y RESULTS GA Interval 154 ms RADIOLOG Y RESULTS QRS Duration 78 ms RADIOLO GY RESULTS QT 370 ms RADIOLOGY RESULTS QTc 442 ms RADIOLOGY RESULTS P [place] 18 degrees RADIOLOGY RESULTS R AXIS 55 degrees RADIOLOGY RESULTS T [place] 25 degrees RADIOLOGY RESULTS Interpretation ECG Sinus rhythm Nonspecific T wave abnormality Abnormal ECG When compared with ECG of 14-May-2024 22:12, Nonspecific T wave abnormality now evident in Inferior leads Confirmed by SEE ED PROVIDER NOTE FOR, ECG INTERPRETATION (4000), film and video editor Estefany Silvinostevie ([id number]) on 05/20/2024 7:48:17 AM RADIOLOGY RESULTS 05/20/2024 7:36 AM PRIMING POWDER PREMIX BLENDER 05/20/2024 7:48 AM PRIMING POWDER PREMIX BLENDER us Deshawn Arredondo MD ECG ORDERABLES Edited [...] For 1 dose $Given 05/20/2024 9:59 AM PRIMING POWDER PREMIX BLENDER 25 mg HYDROmorphone (DILAUDID) injection 2 mg 2 mg, Intravenous, EVERY HOUR, First dose on 05/20/24 at 0800, For 3 doses $Given 05/20/2024 10:58 AM PRIMING POWDER PREMIX BLENDER 2 mg $Given 05/20/2024 9:56 AM PRIMING POWDER PREMIX BLENDER 2 mg $Given 05/20/2024 8:22 AM PRIMING POWDER PREMIX BLENDER 2 mg lactated ringers infusion at 500 mL/hr, Intravenous, CONTINUOUS, Starting on 05/20/24 at 0800, Until 05/20/24 at 0959 Restarted 05/20/2024 9:30 AM PRIMING POWDER PREMIX BLENDER 500 mL/hr $New Bag 05/20/2024 8:22 AM PRIMING POWDER PREMIX BLENDER 500 mL/hr ondansetron (ZOFRAN) injection 8 mg 8 mg, Intravenous, EVERY 6 HOURS PRN, nausea, vomiting, Administer over 2-5 Minutes, Starting on 05/20/24 at 0744 $Given 05/20/2024 8:22 AM PRIMING POWDER PREMIX BLENDER 8 mg documented in this encounter Active and Recently Administered Medications Times are shown in PRIMING POWDER PREMIX BLENDER. Scheduled Medication Order 05/18/2024 05/19/2024 05/20/2024 diphenhydrAMINE [...] RN) documented in this encounter Care Teams Last Dipper Relationship Specialty Start Date End Date No Ref-Primary, Physician PCP - General 03/15/24 06/17/24 Mor Ramsey Medical Student 04/03/24 Case Samuel MD [address] [place] [address], [address] [place] [address] Assigned Pediatric Specialist Provider 05/18/24 documented as of this encounter
--- OUTSIDE RECORDS SUMMARY | 2024-06-30 23:54 | XMS_ITS | Encounter Summary ---
Author Organization [place] Address [address] [place] [address] Care Team Providers Care Television Engineering Teacher Name Role Phone No Ref-Primary, Physician Primary Care Provider Mor Ramsey Unavailable Unavailable Case Samuel MD Unavailable [phone] Reason for Visit * Reason Comments Sickle Cell Pain Crisis Encounter Details Date Type Department Care Team (Late st Contact Info) Description 05/19/2024 2:10 AM NOTCH MACHINE OPERATOR - 05/19/2024 6:06 AM [facility] Emergency [facility] Emergency Room [facility] [place] [address] Marilia Summers MD [address] [place] [address] [id number] Sickle cell disease with crisis (H) Discharge [...] on file Legal Sex Female 8:25 AM NOTCH MACHINE OPERATOR Gender Identity Not on file Sexual Orientation Not on file documented as of this encounter Last Filed Vital Signs Vital Sign Reading Time Taken Comments Blood Pressure 110/60 05/19/2024 5:30 AM NOTCH MACHINE OPERATOR Pulse 89 05/19/2024 5:30 AM NOTCH MACHINE OPERATOR Temperature 36.9 C (98.4 F) 05/19/2024 2:16 AM NOTCH MACHINE OPERATOR Respiratory Rate 16 05/19/2024 2:16 AM NOTCH MACHINE OPERATOR Oxygen Saturation 95% 05/19/2024 5:30 AM NOTCH MACHINE OPERATOR Inhaled Oxygen Concentration - - Weight 51.7 kg (114 lb) 05/19/2024 2:16 AM NOTCH MACHINE OPERATOR Height 160 cm (5' 3) 05/19/2024 2:16 AM NOTCH MACHINE OPERATOR Body Mass Index 20.19 05/19/2024 2:16 AM NOTCH MACHINE OPERATOR documented in this encounter Discharge Instructions * Discharge Instructions* Marilia Summers MD - 05/19/2024 6:02 AM NOTCH MACHINE OPERATOR Keep your hematology appointment for the third. Talk with your oncologist about your pain control and what you should do about it while you wait for that appointment. Also you are still a bit more anemic than your computer support technician would like. H MACHINE OPERATOR * Attachments The following attachments cannot be sent through Care Everywhere. * Sickle Cell Crisis (Citizen Of [place]) documented in this encounter Medications at Time [...] sleep. Took 4mg dilaudid po 3 hours COMMERCIAL ESCROW OFFICER. C/o 10 generalized back pain Triage Assessment [...] Docusate, Senna PRN [id number] I reviewed the [facility] database for prescriptions. Her last fill [...] still a bit more anemic than her computer support technician would like and so I encouraged her [...] history is provided by the patient. No biblical languages professor was used. Gianna Hernández is [...] hCG Serum Qualitative Negative Negative Narrative Lot#: [id number] Exp: 2025-09-28 CBC with platelets and differential [...] Status --------- ------ CBC with platelets and d...[[id number]] Abnormal Final result Manual Differential[[id number]] Abnormal Final result Please view results for these tests on the individual orders. [facility] Documentation Medical Decision Making [...] with other provider:Did you involve another provider (leadership development consultant, , pharmacy, etc.)?: I discussed the [...] my direction. Marilia Summers MD Emergency Medicine [facility] EMERGENCY ROOM Marilia Summers MD 05/19/24 0607 H MACHINE OPERATOR * Moy Stewart RN - 05/19/2024 2:18 AM CST To ED per POV C/o being in sickle cell crisis which awoke her from sleep. Took 4mg dilaudid po 3 hours COMMERCIAL ESCROW OFFICER. C/o 9/10 generalized back pain Triage Assessment (Adult) Row Name 05/19/24 0217 Triage Assessment Airway WDL WDL Respiratory WDL Respiratory WDL WDL Skin Circulation/Temperature WDL Skin Circulation/Temperature WDL WDL Cardiac WDL Cardiac WDL rhythm Pulse Rate & Regularity tachycardic Peripheral/Neurovascular WDL Peripheral Neurovascular WDL WDL Cognitive/Neuro/Behavioral WDL Cognitive/Neuro/Behavioral WDL WDL H MACHINE OPERATOR documented in this encounter Plan of Treatment Upcoming Encounters Date Type Department Care Team (Late st Contact Info) Description 07/10/2024 11:30 AM CDT Oncology Visit [facility] [address] [place] [address] Case Samuel MD [address] [facility] [address], [address] [place], [place] [address] documented as of this encounter Goals Goal Patient Goal Type Associated Problems Recent Progress Patient-Stated? Author Pain Management General On track( 025 12:40 PM NOTCH MACHINE OPERATOR) Yes Juhi Benson, SOFIA Note: [...] MANUAL DIFFERENTIAL STAT 05/19/2024 3 :05 AM NOTCH MACHINE OPERATOR CBC WITH PLATELETS AND DIFFERENTIAL STAT 05/19/2024 3:05 AM NOTCH MACHINE OPERATOR CBC WITH PLATELETS & DIFFERENTIAL STAT 05/19/2024 3:05 AM NOTCH MACHINE OPERATOR RETICULOCYTE COUNT STAT 05/19/2024 3: 05 AM NOTCH MACHINE OPERATOR HEPATIC FUNCTION PANEL STAT 05/19/2024 3:05 AM NOTCH MACHINE OPERATOR HCG QUALITATIVE STAT 05/19/2024 3:05 AM NOTCH MACHINE OPERATOR CK TOTAL STAT 05/19/2024 3:05 AM NOTCH MACHINE OPERATOR BASIC METABOLIC PANEL STAT 05/19/2024 3:05 AM NOTCH MACHINE OPERATOR documented in this encounter Results * (ABNORMAL) Manual Differential (05/19/2024 3:05 AM NOTCH MACHINE OPERATOR) % Neutrophils 66 % JARET 05/19/2024 4:12 AM [facility] % Lymphocytes 19 % JARET 05/19/2024 4:12 AM [facility] % Monocytes 11 % JARET 05/19/2024 4:12 AM [facility] % Eosinophils 2 % JARET 05/19/2024 4:12 AM [facility] % Basophils 2 % JARET 05/19/2024 4:12 AM [facility] Absolute Neutrophils 9.6(H) 1.6 - 8.3 10e3/uL JARET 05/19/2024 4:12 AM [facility] Absolute Lymphocytes 2.8 0.8 - 5.3 10e3/uL JARET 05/19/2024 4:12 AM [facility] Absolute Monocytes 1.6(H) 0.0 - 1.3 10e3/uL JARET 05/19/2024 4:12 AM [facility] Absolute Eosinophils 0.3 0.0 - 0.7 10e3/uL JARET 05/19/2024 4:12 AM [facility] Absolute Basophils 0.3(H) 0.0 - 0.2 10e3/uL JARET 05/19/2024 4:12 AM [facility] RBC Morphology Confirmed RBC Indices JARET 05/19/2024 4:12 AM [facility] Platelet Assessment Automated Count Confirmed. Platelet morphology is normal. Automated Count Confirmed. Platelet morphology is normal. JARET 05/19/2024 4:12 AM [facility] Elliptocytes Slight(A) None Seen JARET 05/19/2024 4:12 AM [facility] RBC Fragments Rare(A) None Seen JARET 05/19/2024 4:12 AM [facility] Polychromasia Slight(A) None Seen [facility] 05/19/2024 4:12 AM [facility] Sickle Cells Slight(A) None Seen JARET 05/19/2024 4:12 AM [facility] Target Cells Slight(A) None Seen [facility] 05/19/2024 4:12 AM [facility] Blood VENOUS LINE / Unknown Venipuncture / Unknown 05/19/2024 3:05 AM [facility] 05/19/2024 3:18 AM [facility] Marilia Summers MD LAB - BLOOD ORDERABLES Final Result [facility] [address] [facility] [place] [address], [facility] * (ABNORMAL) CBC with platelets and differential (05/19/2024 3:05 AM [facility]) WBC Count 14.5(H) 4.0 - 11.0 10e3/uL 05/19/2024 4:12 AM [facility] RBC Count 2.45(L) 3.80 - 5.20 10e6/uL 05/19/2024 4:12 AM [facility] Hemoglobin 7.7(L) 11.7 - 15.7 g/dL 05/19/2024 4:12 AM [facility] Hematocrit 22.7(L) 35.0 - 47.0 % 05/19/2024 4:12 AM [facility] MCV 93 78 - 100 fL 05/19/2024 4:12 AM [facility] MCH 31.4 26.5 - 33.0 pg 05/19/2024 4:12 AM [facility] MCHC 33.9 31.5 - 36.5 g/dL 05/19/2024 4:12 AM [facility] RDW 23.0(H) 10.0 - 15.0 % 05/19/2024 4:12 AM [facility] Platelet Count 518(H) 150 - 450 10e3/uL 05/19/2024 4:12 AM [facility] Blood VENOUS LINE / Unknown Venipuncture / Unknown 05/19/2024 3:05 AM NOTCH MACHINE OPERATOR 05/19/2024 3:18 AM NOTCH MACHINE OPERATOR Marilia Summers MD LAB - BLOOD ORDERABLES Final Result Performing Organization Address [facility] Co de Phone Number [facility] [address] [place] [address] PROSPER Munoz [facility], [facility] * HCG QUALitative (blood) (05/19/2024 3:05 AM NOTCH MACHINE OPERATOR) Pathologist [facility] hCG Serum Qualitative Negative Negative JARET 05/19/2024 3:29 AM NOTCH MACHINE OPERATOR [facility] Comment:This test is for scr eening purposes. Results should be interpreted along with the clinical picture. Confirmation testing is available if warranted by ordering [id number], HCG Quantitative . Blood VENOUS LINE / Unknown Venipuncture / Unknown 05/19/2024 3:05 AM NOTCH MACHINE OPERATOR 05/19/2024 3:18 AM NOTCH MACHINE OPERATOR Narrative [facility] - 05/19/2024 3:29 AM NOTCH MACHINE OPERATOR Lot#: [id number] Exp: 2025-09-28 us Marilia Summers MD LAB - BLOOD ORDERABLES Final Result Performing Organization Address [facility] Co de Phone Number [facility] [address] [place], [place] [address] PROSPER Munoz [facility], [facility] * (ABNORMAL) CK total (05/19/2024 3:05 AM NOTCH MACHINE OPERATOR) [facility] CK 240(H) 26 - 192 U/L 05/19/2024 3:37 AM NOTCH MACHINE OPERATOR [facility] Blood VENOUS LINE / Unknown Venipuncture / Unknown 05/19/2024 3:05 AM NOTCH MACHINE OPERATOR 05/19/2024 3:18 AM NOTCH MACHINE OPERATOR Marilia Summers MD LAB - BLOOD ORDERABLES Final Result Performing Organization Address [facility] Co de Phone Number [facility] [address] [place] [address] PROSPER Munoz [facility], [facility] * (ABNORMAL) Hepatic function panel (05/19/2024 3:05 AM NOTCH MACHINE OPERATOR) Pathologist [facility] Protein Total 7.9 6.4 - 8.3 g/dL 05/19/2024 3:37 AM [facility] Albumin 4.3 3.5 - 5.2 g/dL 05/19/2024 3:37 AM [facility] Bilirubin Total 2.6(H) <=1.2 mg/dL 05/19/2024 3:37 AM [facility] Alkaline Phosphatase 128 40 - 150 U/L 05/19/2024 3:37 AM [facility] AST 67(H) 0 - 45 U/L 05/19/2024 3:37 AM [facility] ALT 39 0 - 50 U/L 05/19/2024 3:37 AM [facility] Bilirubin Direct 0.65(H) 0.00 - 0.30 mg/dL 05/19/2024 3:37 AM [facility] Blood VENOUS LINE / Unknown Venipuncture / Unknown 05/19/2024 3:05 AM [facility] 05/19/2024 3:18 AM [facility] us Marilia Summers MD LAB - BLOOD ORDERABLES Final Result [facility] [address] [place] [address], [facility] * (ABNORMAL) Basic metabolic panel (05/19/2024 3:05 AM [facility]) Sodium 137 135 - 145 mmol/L 05/19/2024 3:37 AM [facility] Potassium 4.2 3.4 - 5.3 mmol/L 05/19/2024 3:37 AM [facility] Chloride 107 98 - 107 mmol/L 05/19/2024 3:37 AM [facility] Carbon Dioxide (CO2) 20(L) 22 - 29 mmol/L 05/19/2024 3:37 AM [facility] Anion Gap 10 7 - 15 mmol/L 05/19/2024 3:37 AM [facility] Urea Nitrogen 11.2 6.0 - 20.0 mg/dL 05/19/2024 3:37 AM [facility] Creatinine 0.81 0.51 - 0.95 mg/dL 05/19/2024 3:37 AM [facility] GFR Estimate >90 >60 mL/min/1.7 3m2 05/19/2024 3:37 AM [facility] Comment:eGFR calculated usin 2020 CKD-EPI equation. Calcium 9.1 8.8 - 10.4 mg/dL 05/19/2024 3:37 AM [facility] Comment:Reference intervals for this test were updated on 11/09/2023 to reflect our healthy population more accurately. There may be differences in the flagging of prior results with similar values performed with this method. Those prior results can be interpreted in the context of the updated reference intervals. Glucose 99 70 - 99 mg/dL 05/19/2024 3:37 AM [facility] Blood VENOUS LINE / Unknown Venipuncture / Unknown 05/19/2024 3:05 AM NOTCH MACHINE OPERATOR 05/19/2024 3:18 AM NOTCH MACHINE OPERATOR us Marilia Summers MD LAB - BLOOD ORDERABLES Final Result Performing Organization Address [facility] de Phone Number [facility] [address] [place], [place] [address] PROSPER Munoz [facility] [place] * (ABNORMAL) Reticulocyte count (05/19/2024 3:05 AM NOTCH MACHINE OPERATOR) [facility] % Reticulocyte 23.3(H) 0.5 - 2.0 % 05/19/2024 3:47 AM [facility] Absolute Reticulocyte 0.550(H) 0.025 - 0.095 10e6/uL 05/19/2024 3:47 AM [facility] Blood VENOUS LINE / Unknown Venipuncture / Unknown 05/19/2024 3:05 AM NOTCH MACHINE OPERATOR 05/19/2024 3:18 AM NOTCH MACHINE OPERATOR us Marilia Summers MD LAB - BLOOD ORDERABLES Final Result Performing Organization Address [facility] Co de Phone Number [facility] [address] [place] [address] PROSPER Munoz [id number], [facility] documented in this encounter Visit [...] For 1 dose $Given 05/19/2024 3:10 AM NOTCH MACHINE OPERATOR 25 mg diphenhydrAMINE (BENADRYL) injection 25 mg 25 mg, Intravenous, ONCE, On Wed05/19/24 at 0530, For 1 dose $Given 05/19/2024 5:17 AM NOTCH MACHINE OPERATOR 25 mg HYDROmorphone (DILAUDID) injection 2 mg 2 mg, Intravenous, EVERY 1 HOUR PRN, moderate pain, Starting on Wed05/19/24 at 0241, For 3 doses $Given 05/19/2024 5:30 AM NOTCH MACHINE OPERATOR 2 mg $Given 05/19/2024 4:19 AM NOTCH MACHINE OPERATOR 2 mg $Given 05/19/2024 3:10 AM NOTCH MACHINE OPERATOR 2 mg lactated ringers BOLUS 1,000 mL Intravenous, 1,000 mL, ONCE, at 500 mL/hr, Administer over 2 Hours, On Wed05/19/24 at 0300, For 1 dose Rate/Dose Verify 05/19/2024 4:24 AM NOTCH MACHINE OPERATOR 500 mL/hr $New Bag 05/19/2024 3:15 AM NOTCH MACHINE OPERATOR 1,000 mLs 500 mL/hr ondansetron (ZOFRAN) injection 8 mg 8 mg, Intravenous, ONCE, Administer over 2-5 Minutes, On Wed05/19/24 at 0530, For 1 dose $Given 05/19/2024 5:17 AM NOTCH MACHINE OPERATOR 8 mg documented in this encounter Active and Recently Administered Medications Times are shown in NOTCH MACHINE OPERATOR. Scheduled Medication Order 05/17/2024 05/18/2024 05/19/2024 diphenhydrAMINE [...] RN) documented in this encounter Care Teams Television Engineering Teacher Relationship Specialty Start Date End Date No Ref-Primary, Physician PCP - General 03/15/24 06/17/24 Mor Ramsey Medical Student 04/03/24 Case Samuel MD [address] [place] [address] 484, [address] [place] [address] Assigned Pediatric Specialist Provider 05/18/24 documented as of this encounter
--- OUTSIDE RECORDS SUMMARY | 2024-06-30 23:54 | XMS_ITS | Encounter Summary ---
Author Organization [place] Address [address] [place] [address]. [place] [address] Care Team Providers Care Grinder Operator Name Role Phone No Ref-Primary, Physician Primary Care Provider Mor Ramsey Unavailable Unavailable Case Samuel MD Unavailable [phone] Encounter Details Date Type Department Care Team [...] on file Legal Sex Female 8:25 AM LINE PREP COOK Gender Identity Not on file Sexual Orientation Not on file documented as of this encounter Plan of Treatment Upcoming Encounters Date Type Department Care Team (Late st Contact Info) Description 07/10/2024 11:30 AM CDT Oncology Visit [facility] [address] [place] [phone] Case Samuel MD [address] [place] [address] 484, [address] [place] [address] documented as of this encounter Goals Goal Patient Goal Type Associated Problems Recent Progress Patient-Stated? Author Pain Management General On track( 025 12:40 PM LINE PREP COOK) Yes Juhi Benson, RN Note: Goal Statement: [...] on filedocumented in this encounter Care Teams Grinder Operator Relationship Specialty Start Date End Date No Ref-Primary, Physician PCP - General 03/15/24 06/17/24 Roxy [facility] Medical Student 04/03/24 Case Samuel MD [address] [place] [address] 484, [address] [place] [address] Assigned Pediatric Specialist Provider 05/18/24 documented as of this encounter
--- OUTSIDE RECORDS SUMMARY | 2024-06-30 23:54 | XMS_ITS | Encounter Summary ---
Author Organization [place] Address [address] [place] [address]. [place] [address] Care Team Providers Care Program Services Planner Name Role Phone No Ref-Primary, Physician Primary Care Provider Mor Ramsey Unavailable Unavailable Case Samuel MD Unavailable [phone] Encounter Details Date Type Department Care Team [...] on file Legal Sex Female 8:25 AM PROCUREMENT MANAGER Gender Identity Not on file Sexual Orientation Not on file documented as of this encounter Plan of Treatment Upcoming Encounters Date Type Department Care Team (Late st Contact Info) Description 07/10/2024 11:30 AM CDT Oncology Visit [facility] [address] [place] [phone] Case Samuel MD [address] [place] [address] [address], [address] [place] [address] documented as of this encounter Goals Goal Patient Goal Type Associated Problems Recent Progress Patient-Stated? Author Pain Management General On track( 025 12:40 PM PROCUREMENT MANAGER) Yes Juhi Benson, RN Note: Goal [...] on filedocumented in this encounter Care Teams Program Services Planner Relationship Specialty Start Date End Date No Ref-Primary, Physician PCP - General 03/15/24 06/17/24 Roxy [facility] Medical Student 04/03/24 Case Samuel MD [address] [place] [address] 484, [address] [place] [address] Assigned Pediatric Specialist Provider 05/18/24 documented as of this encounter
--- OUTSIDE RECORDS SUMMARY | 2024-06-30 23:54 | XMS_ITS | Encounter Summary ---
Author Organization [place] Address [address] [place] [address] Care Team Providers Care Learning And Development Consultant Name Role Phone No Ref-Primary, Physician Primary Care Provider Mor Ramsey Unavailable Unavailable Case Samuel MD Unavailable [phone] Reason for Visit * Reason Onset Date Comments Refill Request 05/22/2024 Encounter Details Date Type Department Care Team ([facility] st Contact Info) Description 05/22/2024 MyC Refill [facility] [address] [place] [address] Case Samuel MD [address] [place] [address] 484, [address] [place] [address] Refill Request Social History Tobacco [...] on file Legal Sex Female 8:25 AM STUDENT DRIVING INSTRUCTOR Gender Identity Not on file Sexual [...] and by whom: Dr. Samuel on 05/01/2024 AUTO COLLISION REPAIR INSTRUCTOR Reviewed: Yes Send to provider: Dr. Samuel and ESTEVAN Reynaga . ENT DRIVING INSTRUCTOR documented in this encounter Plan of Treatment Upcoming Encounters Date Type Department Care Team (Late st Contact Info) Description 07/10/2024 11:30 AM CDT Oncology Visit [facility] [address] [place] [address] Case Samuel MD [address] [place] [address] 484, [address] [place] [address] documented as of this encounter Goals Goal Patient Goal Type Associated Problems Recent Progress Patient-Stated? Author Pain Management General On track( 025 12:40 PM STUDENT DRIVING INSTRUCTOR) Yes Juhi Benson, SOFIA Note: Goal [...] crisis documented in this encounter Care Teams Learning And Development Consultant Relationship Specialty Start Date End Date No Ref-Primary, Physician PCP - General 03/15/24 06/17/24 Mor Ramsey Medical Student 04/03/24 Case Samuel MD [address] [place] [address] 484, [address] [place] [address] Assigned Pediatric Specialist Provider 05/18/24 documented as of this encounter
--- OUTSIDE RECORDS SUMMARY | 2024-06-30 23:54 | XMS_ITS | Encounter Summary ---
Author Organization [facility] Address [address] [place] [id number] Care Team Providers Care Foil Stamp Operator Name Role Phone No Ref-Primary, Physician Primary Care Provider Mor Ramsey Unavailable Unavailable Case Samuel MD Unavailable [phone] Reason for Visit * Reason Comments Abdominal Pain ULQ Encounter Details Date Type Department Care Team (Late st Contact Info) Description 05/23/2024 9:03 PM CABLE PULLER - 05/23/2024 11:37 PM [facility] Emergency [facility] Emergency Room [facility] [place] [address] Marilia Summers MD [address] [place] [address] [id number] Sickle cell pain crisis (H); Leukocytosis, unspecified [...] on file Legal Sex Female 8:25 AM CABLE PULLER Gender Identity Not on file Sexual Orientation Not on file documented as of this encounter Last Filed Vital Signs Vital Sign Reading Time Taken Comments Blood Pressure 123/71 05/23/2024 9:53 PM CABLE PULLER Pulse 95 05/23/2024 9:53 PM CABLE PULLER Temperature 37.7 C (99.9 F) 05/23/2024 4:48 PM CABLE PULLER Respiratory Rate 18 05/23/2024 4:48 PM CABLE PULLER Oxygen Saturation 98% 05/23/2024 9:53 PM CABLE PULLER Inhaled Oxygen Concentration - - Weight 51.7 kg (114 lb) 05/23/2024 4:48 PM CABLE PULLER Height 154.9 cm (5' 1) 05/23/2024 4:48 PM CABLE PULLER Body Mass Index 21.54 05/23/2024 4:48 PM CABLE PULLER documented in this encounter Discharge Instructions * Discharge Instructions* Marilia Summers MD - 05/23/2024 10:34 PM CABLE PULLER Keep your appointment for your port in 2 days. Continue to work with oncology/hematology on pain control. The Lidoderm patch helps with the area of pain underneath your left breast on the chest wall, you can get cail-zlq-ehrljky muscle pain patches that have the same numbing medicine in them and put it on for 12 hours at a time to help with your discomfort. Obviously return to the emergency department as needed if you are having difficulty with breathing. E PULLER * Attachments The following attachments cannot be sent through Care Everywhere. * Sickle Cell Crisis (Portuguese) documented in this encounter Medications at Time [...] /chest pain. Seen for similar last night E PULLER * Marilia Summers MD - 05/23/2024 6:24 [...] she notes the plan discussed with the oncologist/software reliability engineer is to do 3 times a week [...] of chest pain. [facility] and since that time has been seen in the emergency department greater than 40 times. She was seen here yesterday, May 21, 2019, , , , , 18, 13th, 12th, 11th, 10th, eighth, seventh twice, on the sixth she was seen by oncology at [facility], also in the [...] CT CHEST PULMONARY EMBOLISM W CONTRAST LOCATION: [facility] DATE: 05/23/2024 INDICATION: patient with sickle cell. acute chest pain similar to pe in the past. COMPARISON: Chest x-ray 05/22/2024, CTA chest 05/04/2024 and 03/15/2024. Report of CT chest from [facility] from 03/13/2023 is also available. [...] Rate 77 BPM Atrial Rate 77 BPM CO Interval 160 ms QRS Duration 82 ms QT 362 ms QTc 409 ms P Casa 61 degrees R AXIS 92 degrees T Casa 49 degrees Interpretation ECG Sinus rhythm Rightward axis Borderline ECG When compared with ECG of 22-May-2024 15:14, Nonspecific T wave abnormality no longer evident in Inferior leads Confirmed by SEE ED PROVIDER NOTE FOR, ECG INTERPRETATION (4000), assignment desk editor SELMA GARRISON ([id number]) on 05/23/2024 7:30:33 PM ECG: Performed at: 1854 Impression: nsr rate of 77, wandering baseline somewhat limits exam. R axis. Pr 160ms, qrs 82ms, qtc 409ms, prt axes 61 92 49. Compared to 05/22/[address] segments in inferior limb leads no longer present. I have independently reviewed and interpreted the EKS(s) documented above PROCEDURES: Procedures: [facility] Documentation Medical Decision Making Obtained [...] with other provider:Did you involve another provider (hadoop consultant, , pharmacy, etc.)?: No Discharge. I prescribed additional prescription strength medication(s) as charted. See documentation for any additional details. MIPS: Not Applicable Marilia Summers MD Emergency Medicine [facility] EMERGENCY ROOM Marilia Summers MD 05/23/24 [id number] E PULLER * Carmen Elkins RN - 05/23/2024 4:51 PM CST Pt arrives with c/o abdominal pain (ULQ). Pt seen here yesterday for the same pain and sickle cell pain. Reports feeling better when she left yesterday but now pain is back. Temp: 99.9 E PULLER documented in this encounter Plan of Treatment Upcoming Encounters Date Type Department Care Team (Late st Contact Info) Description 07/10/2024 11:30 AM CDT Oncology Visit [facility] [address] [place] [address] Case Samuel MD [address] [place] [address], [address] [place], [place] [id number] documented as of this encounter Goals Goal Patient Goal Type Associated Problems Recent Progress Patient-Stated? Author Pain Management General On track( 025 12:40 PM CABLE PULLER) Yes Juhi Benson, RN Note: Goal Statement: [...] EMBOLISM W CONTRAST STAT 05/23/2024 9:33 PM CABLE PULLER TROPONIN T, HIGH SENSITIVITY STAT 05/23/2024 9:02 PM CABLE PULLER RETICULOCYTE COUNT STAT 05/23/2024 9: 02 PM CABLE PULLER N TERMINAL PRO BNP OUTPATIENT STAT 05/23/2024 9:02 PM CABLE PULLER CBC WITH PLATELETS STAT 05/23/2024 9: 02 PM CABLE PULLER ECG 12-LEAD WITH MUSE SJN,SJO,WWH STAT 05/23/2024 6:54 PM CABLE PULLER documented in this encounter Results * CT Chest Pulmonary Embolism w Contrast (05/23/2024 9:33 PM CABLE PULLER) Anatomical Region Laterality Modality Chest, SUBRAD CT BODY, [facility] CT CHEST Computed Tomography 05/23/2024 9:33 PM CABLE PULLER Impressions 05/23/2024 10:12 PM CABLE PULLER IMPRESSION: 1. Bilateral pulmonary nodules stable since [...] as noted above. Narrative 05/23/2024 10:12 PM CABLE PULLER EXAM: CT CHEST PULMONARY EMBOLISM W CONTRAST LOCATION: [facility] DATE: 05/23/2024 INDICATION: patient with sickle cell. acute chest pain similar to pe in the past. COMPARISON: Chest x-ray 05/22/2024, CTA chest 05/04/2024 and 03/15/2024. [facility] is also available. [...] CT CHEST PULMONARY EMBOLISM W CONTRAST LOCATION: [facility] DATE: 05/23/2024 INDICATION: patient with sickle cell. acute chest pain similar to pe inthe past. COMPARISON: Chest x-ray 05/22/2024, CTA chest 05/04/2024 and 03/15/2024.[facility] is alsoavailable. TECHNIQUE: CT [...] as noted above. us Marilia Summers MD [facility] CT ORDERABLES Final Resu lt * N terminal pro BNP outpatient (05/23/2024 9:02 PM CABLE PULLER) N Terminal Pro BNP Outpatient [id number] - 450 pg/mL 05/23/2024 9:39 PM CABLE PULLER [facility] Comment: Reference range shown and [...] Unknown Venipuncture / Unknown 05/23/2024 9:02 PM CABLE PULLER 05/23/2024 9:10 PM CABLE PULLER Marilia Summers MD LAB - BLOOD ORDERABLES Final Result Performing Organization Address [facility] Co de Phone Number [facility] [address] [place] [address] PROSPER Munoz [phone], [facility] * Troponin T, High Sensitivity (05/23/2024 9:02 PM CABLE PULLER) Troponin T, High Sensitivity <6 <=14 ng/L 05/23/2024 9:39 PM CABLE PULLER [facility] Comment: Either a High Sensitivity [...] Unknown Venipuncture / Unknown 05/23/2024 9:02 PM CABLE PULLER 05/23/2024 9:10 PM CABLE PULLER us Marilia Summers MD LAB - BLOOD ORDERABLES Final Result Performing Organization Address [facility] Co de Phone Number [facility] [address] [place] [address] [place] Munoz [phone], [facility] * (ABNORMAL) Reticulocyte count (05/23/2024 9:02 PM CABLE PULLER) % Reticulocyte 28.1(H) 0.5 - 2.0 % 05/23/2024 9:35 PM [facility] Absolute Reticulocyte 0.698(H) 0.025 - 0.095 10e6/uL 05/23/2024 9:35 PM [facility] Blood BLOOD SPECIMEN / Unknown Venipuncture / Unknown 05/23/2024 9:02 PM CABLE PULLER 05/23/2024 9:10 PM [facility] us Marilia Summers MD LAB - BLOOD ORDERABLES Final Result [facility] [address] [place] [address], [facility] * (ABNORMAL) CBC (+ platelets, no diff) (05/23/2024 9:02 PM [facility]) WBC Count 17.2(H) 4.0 - 11.0 10e3/uL 05/23/2024 9:18 PM [facility] RBC Count 2.45(L) 3.80 - 5.20 10e6/uL 05/23/2024 9:18 PM [facility] Hemoglobin 7.9(L) 11.7 - 15.7 g/dL 05/23/2024 9:18 PM [facility] Hematocrit 22.4(L) 35.0 - 47.0 % 05/23/2024 9:18 PM [facility] MCV 91 78 - 100 fL 05/23/2024 9:18 PM [facility] MCH 32.2 26.5 - 33.0 pg 05/23/2024 9:18 PM [facility] MCHC 35.3 31.5 - 36.5 g/dL 05/23/2024 9:18 PM [facility] RDW 24.4(H) 10.0 - 15.0 % 05/23/2024 9:18 PM [facility] Platelet Count 519(H) 150 - 450 10e3/uL 05/23/2024 9:18 PM [facility] Blood BLOOD SPECIMEN / Unknown Venipuncture / Unknown 05/23/2024 9:02 PM CABLE PULLER 05/23/2024 9:10 PM CABLE PULLER us Marilia Summers MD LAB - BLOOD ORDERABLES Final Result [facility] [address] [place] [address], [facility] * ECG 12-LEAD WITH MUSE (LHE) (05/23/2024 6:54 PM CABLE PULLER) Systolic Blood Pressure mmHg RADIOLOGY RESULTS Diastolic Blood Pressure mmHg RADIOLOGY RESULTS Ventricular Rate 77 BPM RAD IOLOGY RESULTS Atrial Rate 77 BPM RADIOLOG Y RESULTS CO Interval 160 ms RADIOLOG Y RESULTS QRS Duration 82 ms RADIOLO GY RESULTS QT 362 ms RADIOLOGY RESULTS QTc 409 ms RADIOLOGY RESULTS P Casa 61 degrees RADIOLOGY RESULTS R AXIS 92 degrees RADIOLOGY RESULTS T Casa 49 degrees RADIOLOGY RESULTS Interpretation ECG Sinus rhythm Rightward axis Borderline ECG When compared with ECG of 22-May-2024 15:14, Nonspecific T wave abnormality no longer evident in Inferior leads Confirmed by SEE ED PROVIDER NOTE FOR, ECG INTERPRETATION (4000), assignment desk editor SELMA GARRISON ([id number]) on 05/23/2024 7:30:33 PM RADIOLOGY RESULTS 05/23/2024 6:54 PM CABLE PULLER 05/23/2024 7:30 PM CABLE PULLER us Marilia Summers MD ECG ORDERABLES Edited [...] For 1 dose $Given 05/23/2024 10:03 PM CABLE PULLER 50 mg HYDROmorphone (DILAUDID) injection 2 mg 2 mg, Intravenous, EVERY 1 HOUR PRN, moderate pain, Starting on Wed05/23/24 at 2115, For 2 doses $Given 05/23/2024 10:21 PM CABLE PULLER 2 mg $Given 05/23/2024 9:18 PM CABLE PULLER 2 mg HYDROmorphone (DILAUDID) injection 2 mg 2 mg, Intravenous, ONCE, On Wed05/23/24 at 2330, For 1 dose $Given 05/23/2024 11:20 PM CABLE PULLER 2 mg iopamidol (ISOVUE-370) solution 75 mL 75 mL, Intravenous, ONCE, On Wed05/23/24 at 2130, For 1 dose $Given 05/23/2024 9:33 PM CABLE PULLER 75 mLs lactated ringers BOLUS 1,000 mL Intravenous, 1,000 mL, ONCE, On Wed05/23/24 at 2200, For 1 dose $New Bag 05/23/2024 10:05 PM CABLE PULLER 1,000 mLs Lidocaine (LIDOCARE) 4 % Patch [...] post injection. $Patch/Med Applied 05/23/2024 10:53 PM CABLE PULLER 1 patch Left Chest ondansetron (ZOFRAN) injection 8 mg 8 mg, Intravenous, ONCE PRN, nausea, vomiting, Administer over 2-5 Minutes, Starting on Wed05/23/24 at 2159, For 1 dose $Given 05/23/2024 10:07 PM CABLE PULLER 8 mg documented in this encounter Active and Recently Administered Medications Times are shown in CABLE PULLER. Scheduled Medication Order 05/21/2024 05/22/2024 05/23/2024 diphenhydrAMINE [...] RN) documented in this encounter Care Teams Foil Stamp Operator Relationship Specialty Start Date End Date No Ref-Primary, Physician PCP - General 03/15/24 06/17/24 Mor Ramsey Medical Student 04/03/24 Case Samuel MD [address] [place] [address], [address] [place] [address] Assigned Pediatric Specialist Provider 05/18/24 documented as of this encounter
--- OUTSIDE RECORDS SUMMARY | 2024-06-30 23:54 | XMS_ITS | Encounter Summary ---
Author Organization Interior Address [address] [place] [address]. [place] [address] Care Team Providers Care Document Scanner Name Role Phone No Ref-Primary, Physician Primary Care Provider Mor Ramsey Unavailable Unavailable Case Samuel MD Unavailable [phone] Reason for Visit * Reason Comments Chest Pain Encounter Details Date Type Department Care Team (Late st Contact Info) Description 05/27/2024 11:58 AM [employer] - 05/27/2024 6:07 PM [facility] Emergency [facility] Emergency Room [facility] [place] [phone] Blas Mcclellan MD [address] [place] [phone] Marly Gross, DO [facility] [address] [place] [id number] Sickle cell disease with crisis (H) Discharge [...] file Legal 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 Gender Identity Not on file Sexual Orientation Not on file documented as of this encounter Last Filed Vital Signs Vital Sign Reading Time Taken Comments Blood Pressure 123/76 05/27/2024 5:15 PM [employer] Pulse 97 05/27/2024 5:15 PM [employer] Temperature 36.9 C (98.5 F) 05/27/2024 11:57 AM [employer] Respiratory Rate 24 05/27/2024 5:37 PM [employer] Oxygen Saturation 96% 05/27/2024 5:15 PM [employer] Inhaled Oxygen Concentration - - Weight 51.7 kg (114 lb) 05/27/2024 11:56 AM [employer] Height 154.9 cm (5' 1) 05/27/2024 11:56 AM [employer] Body Mass Index 21.54 05/27/2024 11:56 AM [employer] documented in this encounter Discharge Instructions * Attachments The following attachments cannot be sent through Care Everywhere. * Sickle Cell Crisis (Scottish) documented in this encounter Medications at Time [...] Hemoglobin 7.1. [facility] Course Timeline: 5:01 PM I introduced myself to the patient. She would like her last dose of dilaudid per care plan and is comfortable with being discharged home afterwards. She has follow up with her High Climber in2 days which I encouraged her to [...] on file Marly Gross DO Emergency Medicine [facility] EMERGENCY ROOM [address] [facility] [phone] Marly Gross DO 05/27/24 2630 [facility] [employer] [employer] * Blas Mcclellan MD - 05/27/2024 12:32 [...] reviewed?: Documented in chart and Outpatient Record: [facility] ED 05/23/2024 and [facility] visit 05/25/2024 Care impacted by chronic illness:Documented in Chart Did you consider but not order tests?: Work up considered but not performed and documented in chart, if applicable Did you interpret images independently?: Independent interpretation of ECG and images noted in documentation, when applicable. Consultation discussion with other provider:Did you involve another provider (technology applications consultant, , pharmacy, etc.)?: No Admission considered. 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 Per chart review, patient was seen by oncology at [facility] on 05/01/2024 for new outpatient hematology visit for initiation of care for sickle cell disease. [facility] [place] [place] [facility] [place] [facility] She reported [...] had 2 ports placed on 05/25/2024 at [facility]. Apheresis on the right, 6 latvian smart port on the left. Patient tolerated [...] Currently Drug use: Never Social History Narrative Phtj-pz-mfyn mom. Recently moved to [place] from [place], [place]. She is 1 of 9 [...] Socially Integrated (03/28/2024) [facility] Do you [...] was found. Rate: 91 bpm Rhythm: Sinus [place]: 39 62 23 FL Interval: 142 ms [...] my direction. Blas Mcclellan M.D. Emergency Medicine [facility] EMERGENCY ROOM [address] [place] [phone] Dept: [phone] Blas Mcclellan MD 05/27/24 1507 [facility] [employer] [facility] * Yanely Avendano RN - 05/27/2024 12:02 [...] WDL WDL Cognitive/Neuro/Behavioral WDL Cognitive/Neuro/Behavioral WDL WDL [employer] documented in this encounter Plan of Treatment Upcoming Encounters Date Type Department Care Team (Late st Contact Info) Description 07/10/2024 11:30 AM CDT Oncology Visit [facility] [address] [place] [address] Case Samuel MD [address] [facility] [address], [address] [place] [address] documented as of this encounter Goals Goal Patient Goal Type Associated Problems Recent Progress Patient-Stated? Author Pain Management General On track( 025 12:40 PM SUPER[employer]OR [employer]ERKS) Yes Juhi Benson, SOFIA Note: Goal Statement: [...] MANUAL DIFFERENTIAL STAT 05/27/2024 3 :13 PM [employer] CBC WITH PLATELETS AND DIFFERENTIAL STAT 05/27/2024 3:13 PM [employer] CBC WITH PLATELETS & DIFFERENTIAL STAT 05/27/2024 3:13 PM [employer] RETICULOCYTE COUNT STAT 05/27/2024 3: 13 PM [employer] XR CHEST 2 VIEWS STAT 05/27/2024 2:57 PM [employer] COMPREHENSIVE METABOLIC PANEL STAT 05/27/2024 2:30 PM [employer] ECG 12-LEAD WITH MUSE [facility] STAT 05/27/2024 12:12 PM [employer] documented in this encounter Results * (ABNORMAL) Manual Differential (05/27/2024 3:13 PM [employer]) % Neutrophils 71 % JARET 05/27/2024 3:51 PM [employer] [facility] % Lymphocytes 20 % JARET 05/27/2024 3:51 PM [employer] [facility] % Monocytes 9 % JARET 05/27/2024 3:51 PM [facility] % Eosinophils 0 % JARET 05/27/2024 3:51 PM [facility] % Basophils 0 % JARET 05/27/2024 3:51 PM [facility] Absolute Neutrophils 11.1(H) 1.6 - 8.3 10e3/uL JARET 05/27/2024 3:51 PM [facility] Absolute Lymphocytes 3.1 0.8 - 5.3 10e3/uL JARET 05/27/2024 3:51 PM [facility] Absolute Monocytes 1.4(H) 0.0 - 1.3 10e3/uL JARET 05/27/2024 3:51 PM [facility] Absolute Eosinophils 0.0 0.0 - 0.7 10e3/uL JARET 05/27/2024 3:51 PM [facility] Absolute Basophils 0.0 0.0 - 0.2 10e3/uL JARET 05/27/2024 3:51 PM [employer] [facility] RBC Morphology Confirmed RBC Indices JARET 05/27/2024 3:51 PM [facility] Platelet Assessment Automated Count Confirmed. Platelet morphology is normal. Automated Count Confirmed. Platelet morphology is normal. JARET 05/27/2024 3:51 PM [employer] [facility] Acanthocytes Slight(A) None Seen JARET 05/27/2024 3:51 PM [facility] Elliptocytes Slight(A) None Seen JARET 05/27/2024 3:51 PM [facility] RBC Fragments Slight(A) None Seen JARET 05/27/2024 3:51 PM [employer] [facility] Polychromasia Slight(A) None Seen JARET 05/27/2024 3:51 PM [facility] Sickle Cells Moderate(A) None Seen JARET 05/27/2024 3:51 PM [employer] [facility] Target Cells Slight(A) None Seen JARET 05/27/2024 3:51 PM [facility] Blood (Portacath) Venipuncture / Unknown 05/27/2024 3:13 PM [employer] 05/27/2024 3:15 PM [employer] us Blas Mcclellan MD LAB - BLOOD ORDERABLES Final Result [facility] [address] [place] [address], [facility] * (ABNORMAL) CBC with platelets and differential (05/27/2024 3:13 PM SUPER[employer]OR [employer]ER[employer]) [facility] WBC Count 15.7(H) 4.0 - 11.0 10e3/uL 05/27/2024 3:48 PM [facility] RBC Count 2.21(L) 3.80 - 5.20 10e6/uL 05/27/2024 3:48 PM [facility] Hemoglobin 7.1(L) 11.7 - 15.7 g/dL 05/27/2024 3:48 PM [facility] Hematocrit 20.2(L) 35.0 - 47.0 % 05/27/2024 3:48 PM [facility] MCV 91 78 - 100 fL 05/27/2024 3:48 PM [facility] MCH 32.1 26.5 - 33.0 pg 05/27/2024 3:48 PM [facility] MCHC 35.1 31.5 - 36.5 g/dL 05/27/2024 3:48 PM [facility] RDW 23.0(H) 10.0 - 15.0 % 05/27/2024 3:48 PM [facility] Platelet Count 429 150 - 450 10e3/uL 05/27/2024 3:48 PM [facility] Blood (Portacath) Venipuncture / Unknown 05/27/2024 3:13 PM [employer] 05/27/2024 3:15 PM [employer] Blas Mcclellan MD LAB - BLOOD ORDERABLES Final Result Performing Organization Address [facility]/ZIP Co de Phone Number [facility] [place] [address], [facility] * (ABNORMAL) Reticulocyte count (05/27/2024 3:13 PM [employer]PER[employer]ER[employer]) [facility] % Reticulocyte 28.0(H) 0.5 - 2.0 % 05/27/2024 3:19 PM [employer] [facility] Absolute Reticulocyte 0.619(H) 0.025 - 0.095 10e6/uL 05/27/2024 3:19 PM [employer] [facility] Blood (Portacath) Venipuncture / Unknown 05/27/2024 3:13 PM [employer] 05/27/2024 3:15 PM [employer] Blas Mcclellan MD LAB - BLOOD ORDERABLES Final Result Performing Organization Address [facility] de Phone Number [facility] [address] [place] [address] [place] [address], [facility] * Chest XR, PA & LAT (05/27/2024 2:57 PM [employer]) Anatomical Region Laterality Modality Chest Digital Radiogra phy 05/27/2024 2:57 PM [employer] Impressions 05/27/2024 3:03 PM [employer] IMPRESSION: New right and left chest ports, with catheter tips at the superior cavoatrial junction. Unchanged patchy opacities in the right greater mid to lower lungs. No consolidation or pleural effusion. Stable mediastinal silhouette. Narrative 05/27/2024 3:03 PM [employer] EXAM: XR CHEST 2 VIEWS LOCATION: [facility] DATE: 05/27/2024 INDICATION: chest pain, sickle cell, bilateral port placement 3 days ago COMPARISON: 05/22/2024 Procedure Note Rachel Joe MD - 05/27/2024 EXAM: XR CHEST 2 VIEWS LOCATION: [facility] DATE: 05/27/2024 INDICATION: chest pain, sickle [...] (ABNORMAL) Comprehensive metabolic panel (05/27/2024 2:30 PM SUPER[employer]OR [employer]TA[employer]ERKS) [facility] Sodium 136 135 - 145 mmol/L 05/27/2024 2:59 PM [facility] Potassium 4.8 3.4 - 5.3 mmol/L 05/27/2024 2:59 PM [facility] Carbon Dioxide (CO2) 18(L) 22 - 29 mmol/L 05/27/2024 2:59 PM [facility] Anion Gap 12 7 - 15 mmol/L 05/27/2024 2:59 PM [facility] Urea Nitrogen 8.4 6.0 - 20.0 mg/dL 05/27/2024 2:59 PM [facility] Creatinine 0.67 0.51 - 0.95 mg/dL 05/27/2024 2:59 PM [facility] GFR Estimate >90 >60 mL/min/1.7 3m2 05/27/2024 2:59 PM [facility] Comment:eGFR calculated usin 2020 CKD-EPI equation. Calcium 9.3 8.8 - 10.4 mg/dL 05/27/2024 2:59 PM [facility] Chloride 106 98 - 107 mmol/L 05/27/2024 2:59 PM [facility] Glucose 97 70 - 99 mg/dL 05/27/2024 2:59 PM [facility] Alkaline Phosphatase 94 40 - 150 U/L 05/27/2024 2:59 PM [facility] AST 51(H) 0 - 45 U/L 05/27/2024 2:59 PM [facility] ALT 19 0 - 50 U/L 05/27/2024 2:59 PM [facility] Protein Total 7.7 6.4 - 8.3 g/dL 05/27/2024 2:59 PM [facility] Albumin 4.4 3.5 - 5.2 g/dL 05/27/2024 2:59 PM [employer] [facility] Bilirubin Total 2.7(H) <=1.2 mg/dL 05/27/2024 2:59 PM [employer] [facility] Blood VENOUS LINE / Unknown Venipuncture / Unknown 05/27/2024 2:30 PM [employer] 05/27/2024 2:36 PM [employer] Blas Mcclellan MD LAB - BLOOD ORDERABLES Final Result [facility] [address] [place] [address], [facility] * ECG 12-LEAD WITH MUSE (LHE) (05/27/2024 12:12 PM [employer]) Systolic Blood Pressure 110 mmHg RADIOLOGY RESULTS Diastolic Blood Pressure 63 mmHg RADIOLOGY RESULTS Ventricular Rate 91 BPM RAD IOLOGY RESULTS Atrial Rate 91 BPM RADIOLOG Y RESULTS FL Interval 142 ms RADIOLOG Y RESULTS QRS Duration 80 ms RADIOLO GY RESULTS QT 352 ms RADIOLOGY RESULTS QTc 432 ms RADIOLOGY RESULTS P [place] 39 degrees RADIOLOGY RESULTS R AXIS 62 degrees RADIOLOGY RESULTS T [place] 23 degrees RADIOLOGY RESULTS Interpretation ECG Sinus rhythm Nonspecific T wave abnormality Abnormal ECG When compared with ECG of 23-May-2024 18:54, Nonspecific T wave abnormality now evident in Inferior leads Nonspecific T wave abnormality now evident in Anterior leads Confirmed by SEE ED PROVIDER NOTE FOR, ECG INTERPRETATION (4000), visual effects editor BEN PRAKASH ([id number]) on 05/27/2024 12:22:37 PM RADIOLOGY RESULTS 05/27/2024 12:1 2 PM [employer] 05/27/2024 12:22 PM [employer] Blas Mcclellan MD ECG ORDERABLES Edited Result [...] For 1 dose $Given 05/27/2024 4:34 PM [employer] 25 mg heparin lock flush 100 unit/mL injection 5 mL 5 mL, Intracatheter, ONCE, On 05/27/24 at 1730, For 1 dose $Given 05/27/2024 5:33 PM [employer] 5 mLs HYDROmorphone (DILAUDID) injection 2 mg 2 mg, Intravenous, ONCE, On 05/27/24 at 1300, For 1 dose $Given 05/27/2024 2:43 PM [employer] 2 mg HYDROmorphone (DILAUDID) injection 2 mg 2 mg, Intravenous, ONCE, On 05/27/24 at 1630, For 1 dose $Given 05/27/2024 4:37 PM [employer] 2 mg HYDROmorphone (DILAUDID) injection 2 mg 2 mg, Intravenous, ONCE, On 05/27/24 at 1730, For 1 dose $Given 05/27/2024 5:09 PM [employer] 2 mg lactated ringers BOLUS 1,000 mL Intravenous, 1,000 mL, ONCE, On 05/27/24 at 1300, For 1 dose $New Bag 05/27/2024 2:33 PM [employer] 1,000 mLs ondansetron (ZOFRAN) injection 8 mg 8 mg, Intravenous, ONCE, Administer over 2-5 Minutes, On 05/27/24 at 1300, For 1 dose $Given 05/27/2024 2:40 PM [employer] 8 mg documented in this encounter Active and Recently Administered Medications Times are shown in [employer]. Scheduled Medication Order 05/25/2024 05/26/2024 05/27/2024 diphenhydrAMINE [...] dose 1443 ($Given - Provi nas: Dave Aviles RN) HYDROmorphone (DILAUDID) injection 2 mg (COMPLETED) 2 mg, Intravenous, ONCE, On 05/27/24 at 1630, For 1 dose 1637 ($Given - Provi nas: Dave Aviles RN) HYDROmorphone (DILAUDID) injection 2 mg (COMPLETED) 2 mg, Intravenous, ONCE, On 05/27/24 at 1730, For 1 dose 1709 ($Given - Provi nas: Dave Aviles RN) lactated ringers BOLUS 1,000 mL (COMPLETED) Intravenous, 1,000 mL, ONCE, On 05/27/24 at 1300, For 1 dose 1433 ($New Bag - Pro vider: Dave Aviles RN)1634 (Stopped - Provider: Dave Aviles RN) ondansetron (ZOFRAN) injection 8 mg (COMPLETED) 8 mg, Intravenous, ONCE, Administer over 2-5 Minutes, On 05/27/24 at 1300, For 1 dose 1440 ($Given - Provi nas: Dave Aviles RN) documented in this encounter Care Teams Document Scanner Relationship Specialty Start Date End Date No Ref-Primary, Physician PCP - General 03/15/24 06/17/24 Mor Ramsey Medical Student 04/03/24 Case Samuel MD [address] [place] [address] [address], [address] [place], [place] [address] Assigned Pediatric Specialist Provider 05/18/24 documented as of this encounter
--- OUTSIDE RECORDS SUMMARY | 2024-06-30 23:54 | XMS_ITS | Encounter Summary ---
Author Organization [place] Address [facility] 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 Author Pain Management General On track( 025 12:40 PM DATA SOFTWARE ENGINEER) Yes Juhi Benson RN Note: Goal [...] Out COVID-19 05/16/2024 05/16/2024 05/16/2024 10:46 PM DATA SOFTWARE ENGINEER documented as of this encounter Care Teams Road Engineer Relationship Specialty Start Date End Date No Ref-Primary, Physician PCP - General 03/15/24 06/17/24 Mor Ramsey Medical Student 04/03/24 documented as of this encounter
--- OUTSIDE RECORDS SUMMARY | 2024-06-30 23:54 | XMS_ITS | Encounter Summary ---
Author Organization [facility] Address [address] [place] [address]. [place] [address] Care Team Providers Care Director Private Name Role Phone No Ref-Primary, Physician Primary Care Provider Mor Ramsey Unavailable Unavailable Case Samuel MD Unavailable [phone] Reason for Visit * Reason Comments Chest Pain Sickle Cell Pain Crisis Encounter Details Date Type Department Care Team (Late st Contact Info) Description 05/22/2024 3:27 PM SHELL MAKER LOCKSTITCH - 05/22/2024 6:55 PM SHELL MAKER LOCKSTITCH Emergency [facility] Emergency Room [facility] [place] [address] Bernabe Farley MD [facility] [address] [place] [id number] Sickle cell pain crisis (H) Discharge Disposition: [...] on file Legal Sex Female 8:25 AM SHELL MAKER LOCKSTITCH Gender Identity Not on file Sexual Orientation Not on file documented as of this encounter Last Filed Vital Signs Vital Sign Reading Time Taken Comments Blood Pressure 111/59 05/22/2024 6:53 PM SHELL MAKER LOCKSTITCH Pulse 106 05/22/2024 6:52 PM SHELL MAKER LOCKSTITCH Temperature 36.7 C (98.1 F) 05/22/2024 3:11 PM SHELL MAKER LOCKSTITCH Respiratory Rate 20 05/22/2024 3:11 PM SHELL MAKER LOCKSTITCH Oxygen Saturation 95% 05/22/2024 6:52 PM SHELL MAKER LOCKSTITCH Inhaled Oxygen Concentration - - Weight 51.7 kg (114 lb) 05/22/2024 3:11 PM SHELL MAKER LOCKSTITCH Height 154.9 cm (5' 1) 05/22/2024 3:11 PM SHELL MAKER LOCKSTITCH Body Mass Index 21.54 05/22/2024 3:11 PM SHELL MAKER LOCKSTITCH documented in this encounter Discharge Instructions * Attachments The following attachments cannot be sent through Care Everywhere. * Sickle Cell Crisis ([place]) documented in this encounter Medications at Time [...] RN - 05/22/2024 6:29 PM CST Bed: [facility] Expected date: Expected time: Means of arrival: Comments: Crash L MAKER LOCKSTITCH * Bernabe Farley MD - 05/22/2024 3:27 [...] April. Today will be the 16th visit. 0800 Patient is a 29-year-old woman with history [...] and Inpatient Record: Patient was seen at [facility] ED on 05/20/23 Care impacted by chronic [...] Per chart review, patient was seen at [facility] ED on 05/20/24 for sickle cell pain [...] has seen the oncologist at the [facility] and has future follow-up appointments for her [...] my direction. Bernabe Farley M.D. [facility] EMERGENCY ROOM [address] [facility] [phone] Dept: [phone] Bernabe Farley MD 05/22/240 L MAKER LOCKSTITCH * Sanjay Purdy RN - 05/22/2024 3:10 [...] WDL Cognitive/Neuro/Behavioral WDL Cognitive/Neuro/Behavioral WDL WDL L MAKER LOCKSTITCH documented in this encounter Plan of Treatment Upcoming Encounters Date Type Department Care Team (Late st Contact Info) Description 07/10/2024 11:30 AM CDT Oncology Visit [facility] [address] [place] [address] Case Samuel MD [address] [place] [address], [address] [place], [place] [id number] documented as of this encounter Goals Goal Patient Goal Type Associated Problems Recent Progress Patient-Stated? Author Pain Management General On track( 025 12:40 PM SHELL MAKER LOCKSTITCH) Yes Juhi Benson, RN Note: Goal Statement: [...] CHEST 2 VIEWS STAT 05/22/2024 5:19 PM SHELL MAKER LOCKSTITCH RBC AND PLATELET MORPHOLOGY STAT 05/22/2024 3:51 PM SHELL MAKER LOCKSTITCH CBC WITH PLATELETS AND DIFFERENTIAL STAT 05/22/2024 3:51 PM SHELL MAKER LOCKSTITCH CBC WITH PLATELETS & DIFFERENTIAL STAT 05/22/2024 3:51 PM SHELL MAKER LOCKSTITCH BASIC METABOLIC PANEL STAT 05/22/2024 3:51 PM SHELL MAKER LOCKSTITCH ECG 12-LEAD WITH MUSE SJN,SJO,WWH STAT 05/22/2024 3:14 PM SHELL MAKER LOCKSTITCH documented in this encounter Results * Chest XR, PA & LAT (05/22/2024 5:19 PM SHELL MAKER LOCKSTITCH) Anatomical Region Laterality Modality Chest Digital Radiogra phy 05/22/2024 5:19 PM SHELL MAKER LOCKSTITCH Impressions 05/22/2024 5:42 PM SHELL MAKER LOCKSTITCH IMPRESSION: Unchanged ill-defined hazy opacities in the peripheral right lung, which may correspond with nodular opacities seen on CT chest dated 05/04/2024. No new focal airspace disease. No pleural effusion or pneumothorax. The cardiomediastinal silhouette is unremarkable. Narrative 05/22/2024 5:42 PM SHELL MAKER LOCKSTITCH EXAM: XR CHEST 2 VIEWS LOCATION: [facility] DATE: 05/22/2024 INDICATION: L chest pain, concern for acute chest syndome COMPARISON: 05/20/2024, CT chest 05/04/2024 Procedure Note Robert Marks MD - 05/22/2024 EXAM: XR CHEST 2 VIEWS LOCATION: [facility] DATE: 05/22/2024 INDICATION: L chest [...] RBC and Platelet Morphology (05/22/2024 3:51 PM SHELL MAKER LOCKSTITCH) RBC Morphology Confirmed RBC Indices 05/22/2024 4:30 PM SHELL MAKER LOCKSTITCH [facility] Platelet Assessment Automated Count Confirmed. Giant platelets are present.(A) Automated Count Confirmed. Platelet morphology is normal. JARET 05/22/2024 4:30 PM SHELL MAKER LOCKSTITCH [facility] Giant Platelets Slight(A) None Seen JARET 05/22/2024 4:30 PM [facility] Elliptocytes Slight(A) None Seen JARET 05/22/2024 4:30 PM SHELL MAKER LOCKSTITCH [facility] [place] Bodies Present(A) None Seen JARET 05/22/2024 4:30 PM [facility] Polychromasia Slight(A) None Seen JARET 05/22/2024 4:30 PM SHELL MAKER LOCKSTITCH [facility] RBC Fragments Slight(A) None Seen JARET 05/22/2024 4:30 PM [facility] Sickle Cells Moderate(A) None Seen JARET 05/22/2024 4:30 PM SHELL MAKER LOCKSTITCH [facility] Target Cells Slight(A) None Seen JARET 05/22/2024 4:30 PM [facility] Blood VENOUS LINE / Unknown Venipuncture / Unknown 05/22/2024 3:51 PM SHELL MAKER LOCKSTITCH 05/22/2024 3:54 PM SHELL MAKER LOCKSTITCH us Bernabe Farley MD LAB - BLOOD ORDERABLES Final Result [facility] [address] [place] [address], [facility] * (ABNORMAL) CBC with platelets and differential (05/22/2024 3:51 PM SHELL MAKER LOCKSTITCH) Pathologist [facility] WBC Count 14.5(H) 4.0 - 11.0 10e3/uL 05/22/2024 4:30 PM [facility] RBC Count 2.59(L) 3.80 - 5.20 10e6/uL 05/22/2024 4:30 PM [facility] Hemoglobin 8.2(L) 11.7 - 15.7 g/dL 05/22/2024 4:30 PM [facility] Hematocrit 23.4(L) 35.0 - 47.0 % 05/22/2024 4:30 PM [facility] MCV 90 78 - 100 fL 05/22/2024 4:30 PM [facility] MCH 31.7 26.5 - 33.0 pg 05/22/2024 4:30 PM [facility] MCHC 35.0 31.5 - 36.5 g/dL 05/22/2024 4:30 PM [facility] RDW 22.9(H) 10.0 - 15.0 % 05/22/2024 4:30 PM [facility] Platelet Count 552(H) 150 - 450 10e3/uL 05/22/2024 4:30 PM [facility] % Neutrophils 53 % 05/22/2024 4:30 PM [facility] % Lymphocytes 30 % 05/22/2024 4:30 PM [facility] % Monocytes 14 % 05/22/2024 4:30 PM [facility] % Eosinophils 1 % 05/22/2024 4:30 PM [facility] % Basophils 1 % 05/22/2024 4:30 PM [facility] % Immature Granulocytes 1 % 05/22/2024 4:30 PM [facility] NRBCs per 100 WBC 2(H) <1 /100 025 4:30 PM [facility] Absolute Neutrophils 7.7 1.6 - 8.3 10e3/uL 05/22/2024 4:30 PM [facility] Absolute Lymphocytes 4.3 0.8 - 5.3 10e3/uL 05/22/2024 4:30 PM [facility] Absolute Monocytes 2.0(H) 0.0 - 1.3 10e3/uL 05/22/2024 4:30 PM [facility] Absolute Eosinophils 0.1 0.0 - 0.7 10e3/uL 05/22/2024 4:30 PM [facility] Absolute Basophils 0.2 0.0 - 0.2 10e3/uL 05/22/2024 4:30 PM [facility] Absolute Immature Granulocytes 0.2 <=0.4 10e3/uL 05/22/2024 4:30 PM [facility] Absolute NRBCs 0.3 10e3/uL 05/22/2024 4:30 PM [facility] Blood VENOUS LINE / Unknown Venipuncture / Unknown 05/22/2024 3:51 PM SHELL MAKER LOCKSTITCH 05/22/2024 3:54 PM [facility] us Bernabe Farley MD LAB - BLOOD ORDERABLES Final Result Performing Organization Address [facility]/State/ZIP Co de Phone Number [facility] [address] [place] [address], [facility] * (ABNORMAL) Basic metabolic panel (05/22/2024 3:51 PM SHELL MAKER LOCKSTITCH) Sodium 138 135 - 145 mmol/L 05/22/2024 4:12 PM [facility] Potassium 4.8 3.4 - 5.3 mmol/L 05/22/2024 4:12 PM [facility] Chloride 107 98 - 107 mmol/L 05/22/2024 4:12 PM [facility] Carbon Dioxide (CO2) 20(L) 22 - 29 mmol/L 05/22/2024 4:12 PM [facility] Anion Gap 11 7 - 15 mmol/L 05/22/2024 4:12 PM SHELL MAKER LOCKSTITCH [facility] Urea Nitrogen 9.9 6.0 - 20.0 mg/dL 05/22/2024 4:12 PM [facility] Creatinine 0.91 0.51 - 0.95 mg/dL 05/22/2024 4:12 PM [facility] GFR Estimate 87 >60 mL/min/1.7 3m2 05/22/2024 4:12 PM [facility] Comment:eGFR calculated usin g 2020 CKD-EPI equation. Calcium 9.6 8.8 - 10.4 mg/dL 05/22/2024 4:12 PM [facility] Comment:Reference intervals for this test were updated on 11/09/2023 to reflect our healthy population more accurately. There may be differences in the flagging of prior results with similar values performed with this method. Those prior results can be interpreted in the context of the updated reference intervals. Glucose 100(H) 70 - 99 mg/dL 05/22/2024 4:12 PM SHELL MAKER LOCKSTITCH [facility] Blood VENOUS LINE / Unknown Venipuncture / Unknown 05/22/2024 3:51 PM SHELL MAKER LOCKSTITCH 05/22/2024 3:54 PM SHELL MAKER LOCKSTITCH us Bernabe Farley MD LAB - BLOOD ORDERABLES Final Result [facility] [address] [place] [address], [facility] * ECG 12-LEAD WITH MUSE (LHE) (05/22/2024 3:14 PM SHELL MAKER LOCKSTITCH) Systolic Blood Pressure mmHg RADIOLOGY RESULTS Diastolic Blood Pressure mmHg RADIOLOGY RESULTS Ventricular Rate 103 BPM RAD IOLOGY RESULTS Atrial Rate 103 BPM RADIOLOG Y RESULTS MS Interval 124 ms RADIOLOG Y RESULTS QRS Duration 80 ms RADIOLO GY RESULTS QT 316 ms RADIOLOGY RESULTS QTc 413 ms RADIOLOGY RESULTS P [place] 82 degrees RADIOLOGY RESULTS R AXIS 90 degrees RADIOLOGY RESULTS T [place] 70 degrees RADIOLOGY RESULTS Interpretation ECG Sinus tachycardia Rightward axis Borderline ECG When compared with ECG of 20-May-2024 07:36, Nonspecific T wave abnormality no longer evident in Anterior leads Confirmed by SEE ED PROVIDER NOTE FOR, ECG INTERPRETATION ([id number]), assistant production editor Leticia Warner ([id number]) on 05/22/2024 4:13:58 PM RADIOLOGY RESULTS 05/22/2024 3:14 PM SHELL MAKER LOCKSTITCH 05/22/2024 4:13 PM SHELL MAKER LOCKSTITCH Bernabe Farley MD ECG ORDERABLES Edited Result [...] For 1 dose $Given 05/22/2024 4:00 PM SHELL MAKER LOCKSTITCH 25 mg HYDROmorphone (DILAUDID) injection 2 mg 2 mg, Intravenous, EVERY 1 HOUR PRN, severe pain, Starting on Wed05/22/24 at 1537, For 3 doses $Given 05/22/2024 6:39 PM SHELL MAKER LOCKSTITCH 2 mg $Given 05/22/2024 5:33 PM SHELL MAKER LOCKSTITCH 2 mg $Given 05/22/2024 4:00 PM SHELL MAKER LOCKSTITCH 2 mg lactated ringers BOLUS 500 mL Intravenous, 500 mL, ONCE, On Wed05/22/24 at 1600, For 1 dose $New Bag 05/22/2024 4:13 PM SHELL MAKER LOCKSTITCH 500 mLs ondansetron (ZOFRAN) injection 4 mg 4 mg, Intravenous, ONCE, Administer over 2-5 Minutes, On Wed05/22/24 at 1600, For 1 dose $Given 05/22/2024 4:00 PM SHELL MAKER LOCKSTITCH 4 mg documented in this encounter Active and Recently Administered Medications Times are shown in SHELL MAKER LOCKSTITCH. Scheduled Medication Order 05/20/2024 05/21/2024 05/22/2024 diphenhydrAMINE [...] For 3 doses 1600 ($Given - Provi nsa: Hattie Lee RN)1733 ($Given - Provider: Carmen Elkins RN)1839 ($Given - Provider: Carmen Elkins, SOFIA) documented in this encounter Care Teams Director Private Relationship Specialty Start Date End Date No Ref-Primary, Physician PCP - General 03/15/24 06/17/24 Mor Ramsey Medical Student 04/03/24 Case Samuel MD [address] [place] [address] 484, [address] [place] [address] Assigned Pediatric Specialist Provider 05/18/24 documented as of this encounter
--- OUTSIDE RECORDS SUMMARY | 2024-06-30 23:54 | XMS_ITS | Encounter Summary ---
Author Organization [facility] Address [address] [place] [address]. [place] [address] Care Team Providers Care Sleep Tech Name Role Phone No Ref-Primary, Physician Primary Care Provider Mor Ramsey Unavailable Unavailable Case Samuel MD Unavailable [phone] Encounter Details Date Type Department Care Team (Late st Contact Info) Description 05/22/2024 MyC Medical Advice [facility] Interventional Radiology [address] [place] [address] Yadi Mahan, RN Social History [...] on file Legal Sex Female 8:25 AM STILL CLEANER Gender Identity Not on file Sexual Orientation Not on file documented as of this encounter Plan of Treatment Upcoming Encounters Date Type Department Care Team (Late st Contact Info) Description 07/10/2024 11:30 AM CDT Oncology Visit [facility] [address] [place] [address] Case Samuel MD [address] [place] [address], [address] [place] [address] documented as of this encounter Goals Goal Patient Goal Type Associated Problems Recent Progress Patient-Stated? Author Pain Management General On track( 025 12:40 PM STILL CLEANER) Yes Juhi Benson, SOFIA Note: Goal [...] on filedocumented in this encounter Care Teams Sleep Tech Relationship Specialty Start Date End Date No Ref-Primary, Physician PCP - General 03/15/24 06/17/24 Mor Ramsey Medical Student 04/03/24 Case Samuel MD [address] [place] [address] 484, [address] [place] [address] Assigned Pediatric Specialist Provider 05/18/24 documented as of this encounter
--- OUTSIDE RECORDS SUMMARY | 2024-06-30 23:54 | XMS_ITS | Encounter Summary ---
Author Organization [facility] Address [address] [place] [address] Care Team Providers Care Traffic Or System Dispatcher Name Role Phone No Ref-Primary, Physician Primary Care Provider Mro Ramsey Unavailable Unavailable Case Samuel MD Unavailable [phone] Reason for Referral * Therapeutic Imaging/IR (Routine: Next available opening) - Closed Specialty Diagnoses / Procedures Referred By Contac t Referred To Contact Radiology. 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) [...] file Legal Sex Female 8:25 AM CAR RENTAL AGENCY MANAGER Gender Identity Not on file Sexual Orientation Not on file documented as of this encounter Last Filed Vital Signs Vital Sign Reading Time Taken Comments Blood Pressure 100/60 05/25/2024 4:00 PM CAR RENTAL AGENCY MANAGER Pulse 92 05/25/2024 3:00 PM CAR RENTAL AGENCY MANAGER Temperature 36.9 C (98.5 F) 05/25/2024 11:09 AM CAR RENTAL AGENCY MANAGER Respiratory Rate 16 05/25/2024 4:00 PM CAR RENTAL AGENCY MANAGER Oxygen Saturation 98% 05/25/2024 4:00 PM CAR RENTAL AGENCY MANAGER Inhaled Oxygen Concentration - - Weight 51.1 kg (112 lb 9.6 oz) 05/25/2024 11:09 AM CAR RENTAL AGENCY MANAGER Height - - Body Mass Index 21.28 05/23/2024 4:48 PM CAR RENTAL AGENCY MANAGER documented in this encounter Discharge Instructions * Discharge Instructions* Hattie Ballesteros RN - 05/25/2024 3:24 PM CAR RENTAL AGENCY MANAGER Images from the original note were not included. [facility] Interventional Radiology Discharge Instructions Following Port Placement You had a 2 ports placed. On the right side of your chest is a apheresis port and on the left side of your chest in a smart port. A port is a small medical laboratory technologist that is placed under the skin and isconnected to a vein with a catheter (thin, flexible tube). Ports can be used to administer IV medications (including chemotherapy), fluids or blood products or for blood lab draws. Please follow the below instructions after your procedure: Your Ports has been closed with [place] (Skin Glue) If there is any [...] port placement for further instructions for this. [facility] INTERVENTIONAL RADIOLOGY DEPARTMENT Procedure Physician: Myron Michel MD Date of procedure: May 25, 2024 Telephone Numbers: [phone] Wednesday-Wednesday 7:30 am to 4:00 pm [phone] After 4:00 pm Wednesday-Wednesday, Weekends & Holidays. Ask for the Interventional Radiologist conveyor belt installer. Someone is conveyor belt installer 24 hrs/day [facility] toll free number: Wednesday-Wednesday 8:00 am to 4:30 pm [facility] Emergency Dept: [phone] IF YOU ARE EXPERIENCING A MEDICAL EMERGENCY PLEASE CALL 911 RENTAL AGENCY MANAGER RENTAL AGENCY MANAGER documented in this encounter Medications at Time [...] to s/o who is driving patient home. RENTAL AGENCY MANAGER * Hattie Ballesteros RN - 05/25/2024 3:07 PM CST Patient returned s/p bilateral port placement with apheresis port on the right and smart port on the left, both with dermabond, intact no bleeding or swelling. Patient c/o 7/10 pain, RN called Dr. Anglin and got home dose of dilaudid ordered. Patient alert and oriented, RASS of 0. Will discharge once meeting criteria. RENTAL AGENCY MANAGER * Hattie Ballesteros RN - 05/25/2024 12:32 PM CST Patient prepped for port placement x 2. Patient will have a power port and a apharesis IV port. Consent signed. PIV placed in left AC by vascular, IV antibiotic running. Appropriately NPO. Patient has sickle cell disease, reports pain okay today. S/o Vineet will be picking patient up. RENTAL AGENCY MANAGER documented in this encounter Procedure Notes * Myron Michel MD - 05/25/2024 2:55 PM CSTAssociated Order(s): IR Procedure Note [facility] Procedure: IR Procedure Note Date/Time: 05/25/2024 [...] the procedure a time out was called Mcdonald Protocol: the Joint Commission Mcdonald Protocol was followed Preparation: Patient was prepped and draped in usual sterile fashion ANESTHESIA Anesthesia: Local infiltration Local Anesthetic: Lidocaine 1% without epinephrine SEDATION Patient Sedated: Yes Sedation Type: Moderate (conscious) sedation Sedation: Fentanyl and midazolam Vital signs: Vital signs monitored during sedation See dictated procedure note for full details. Findings: Successful bilateral port placement apheresis on the right, 6 canadian smart port on the left Specimens: none Procedural Complications: None Condition: Stable Plan: 1 hour bedrest then okay to discharge PROCEDURE Describe Procedure: Successful bilateral port placement apheresis on the right, 6 canadian smart porton the left Patient Tolerance: Patient tolerated the procedure well with no immediate complications Length of time physician/provider present for 1:1 monitoring during sedation: 83-97 min RENTAL AGENCY MANAGER documented in this encounter Miscellaneous Notes * [...] mcg of fentanyl Sedation time: 97 minutes ([id number]) Report given to: Juhi Aviles RN Taping Supervisor: n/a Other Notes: Pt arrived to IR [...] (5 mL). Pt transferred back to . RENTAL AGENCY MANAGER * Pre-Procedure - Juan Story PA-Jefferson - 05/25/2024 11:37 AM CAR RENTAL AGENCY MANAGER GENERAL PRE-PROCEDURE: Procedure: Port placement x2 Date/Time: [...] data, medications, and the plan for sedation RENTAL AGENCY MANAGER documented in this encounter Plan of Treatment Upcoming Encounters Date Type Department Care Team (Late st Contact Info) Description 07/10/2024 11:30 AM CDT Oncology Visit [facility] [address] [place] [address] Case Samuel MD [address] [place] [address], [address] [place] [address] documented as of this encounter Goals Goal Patient Goal Type Associated Problems Recent Progress Patient-Stated? 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) HCG QUALITATIVE URINE Routine 05/25/2024 12:03 PM CAR RENTAL AGENCY MANAGER documented in this encounter Results * IR Procedure Note (05/25/2024 2:54 PM CAR RENTAL AGENCY MANAGER) Narrative Myron Michel MD - 05/25/2024 2:54 PM CAR RENTAL AGENCY MANAGER Myron Michel MD 05/25/2024 2:55 PM [facility] Procedure: IR Procedure Note Date/Time: 05/25/2024 [...] the procedure a time out was called Mcdonald Protocol: the Joint Commission Mcdonald Protocol was followed Preparation: Patient was prepped and draped in usual sterile fashion ANESTHESIA Anesthesia: Local infiltration Local Anesthetic: Lidocaine 1% without epinephrine SEDATION Patient Sedated: Yes Sedation Type: Moderate (conscious) sedation Sedation: Fentanyl and midazolam Vital signs: Vital signs monitored during sedation See dictated procedure note for full details. Findings: Successful bilateral port placement apheresis on the right, 6 canadian smart port on the left Specimens: none Procedural Complications: None Condition: Stable Plan: 1 hour bedrest then okay to discharge PROCEDURE Describe Procedure: Successful bilateral port placement apheresis on the right, 6 canadian smart port on the left Patient Tolerance: Patient tolerated the procedure well with no immediate complications Length of time physician/provider present for 1:1 monitoring during sedation: 83-97 min us Myron Michel MD PROCEDURE/MINOR SURGICAL ORDERA BLES Final Result * IR Chest Port Placement > 5 Yrs of Age (05/25/2024 2:47 PM CAR RENTAL AGENCY MANAGER) Anatomical Region Laterality Modality Chest Radio Fluoroscop y Impressions 05/25/2024 5:26 PM CAR RENTAL AGENCY MANAGER IMPRESSION: Insertion of right-sided apheresis chest [...] mg Versed Sedation time: 97 minutes ATTENDING [id number] SEDATION TIME: less than 5 minutes. Access [...] placed: BD PowerFlow apheresis port Catheter size (Uzbek): 9.6 Lumens: Single-lumen Power injectable: Yes Catheter [...] COOPER MD Narrative 05/25/2024 5:26 PM CAR RENTAL AGENCY MANAGER PROCEDURE: Venous port placement Procedural Personnel [...] mg Versed Sedation time: 97 minutes ATTENDING [id number] SEDATION TIME: less than 5 minutes. Access [...] placed: BD PowerFlow apheresis port Catheter size (Uzbek): 9.6 Lumens: Single-lumen Power injectable: Yes Catheter [...] Yrs of Age (05/25/2024 2:47 PM CAR RENTAL AGENCY MANAGER) Anatomical Region Laterality Modality Chest Radio Fluoroscop y Impressions 05/25/2024 5:23 PM CAR RENTAL AGENCY MANAGER IMPRESSION: Insertion of left-sided 6 Uzbek chest port, with catheter tip in the [...] mg Versed Sedation time: 97 minutes ATTENDING [id number] SEDATION TIME: 5 minutes. Access Local anesthesia [...] AngioDynamics Plastic CT Smart Port Catheter size (Uzbek): 6 Lumens: Single-lumen Power injectable: Yes Catheter [...] JASWINDER COOPER MD Narrative 05/25/2024 5:23 PM CAR RENTAL AGENCY MANAGER PROCEDURE: Venous port placement Procedural Personnel [...] Resident physician(s): None Advanced practice provider(s): None JASWINEDR Long MD, attest that I was present for all critical portions of the procedure and was immediately available to provide guidance and assistance during the remainder of the procedure. Procedure Date (): 05/25/2024 Pre-procedure diagnosis: Sickle cell Post-procedure diagnosis: Same Indication: Other- Additional clinical history: None Complications: No immediate complications. IMPRESSION: Insertion of left-sided 6 Uzbek chest port, with catheter tip in the [...] mg Versed Sedation time: 97 minutes ATTENDING [id number] SEDATION TIME: 5 minutes. Access Local anesthesia [...] AngioDynamics Plastic CT Smart Port Catheter size (Uzbek): 6 Lumens: Single-lumen Power injectable: Yes Catheter [...] JASWINDER COOPER MD us Case Samuel MD [facility] IR ORDERABLES Final R esult * HCG qualitative urine (05/25/2024 12:03 PM CAR RENTAL AGENCY MANAGER) hCG Urine Qualitative Negative Negative JARET 05/25/2024 12:34 PM CAR RENTAL AGENCY MANAGER U LABORATORY Comment:This test is for scr eening purposes. Results should be interpreted along with the clinical picture. Confirmation testing is available if warranted by ordering [id number], HCG Quantitative . Urine MID-STREAM URINE SPECIMEN / Unknown Non-blood Collection / Unknown 05/25/2024 12:03 PM CAR RENTAL AGENCY MANAGER 05/25/2024 12:19 PM CAR RENTAL AGENCY MANAGER us Jaswinder Cooper MD LAB - URINE ORDERABLES Liss l Result LABORATORY [facility] [address] [facility], [address] [place] [address], [facility] documented in this encounter Visit Diagnoses [...] ative Pharmacoprophylaxis $New Bag 05/25/2024 12:17 PM CAR RENTAL AGENCY MANAGER 2 g 200 mL/hr fentaNYL (PF) (SUBLIMAZE) [...] physician., IR Intra-procedure $Given 05/25/2024 2:38 PM CAR RENTAL AGENCY MANAGER 25 mcg $Given 05/25/2024 2:25 PM CAR RENTAL AGENCY MANAGER 50 mcg $Given 05/25/2024 2:16 PM CAR RENTAL AGENCY MANAGER 25 mcg flumazenil (ROMAZICON) injection 0.2 mg [...] $Given by Other Clinician 05/25/2024 1:40 PM CAR RENTAL AGENCY MANAGER 5,000 Units heparin lock flush 100 unit/mL injection 5 mL 5 mL, Intracatheter, ONCE, On Citlali 05/25/24 at 1330, For 1 dose, Left chest port $Given by Other Clinician 05/25/2024 2:30 PM CAR RENTAL AGENCY MANAGER 5 mLs HYDROmorphone (DILAUDID) tablet 2 mg 2 mg, Oral, ONCE PRN, severe pain, Starting on Citlali 05/25/24 at 1507, For 1 dose $Given 05/25/2024 3:16 PM CAR RENTAL AGENCY MANAGER 2 mg lidocaine (LMX4) cream Topical, EVERY [...] $Given by Other Clinician 05/25/2024 1:58 PM CAR RENTAL AGENCY MANAGER 40 mLs midazolam (VERSED) injection 0.5-2 mg [...] dose., IR Intra-procedure $Given 05/25/2024 2:38 PM CAR RENTAL AGENCY MANAGER 0.5 mg $Given 05/25/2024 2:25 PM CAR RENTAL AGENCY MANAGER 1 mg $Given 05/25/2024 2:16 PM CAR RENTAL AGENCY MANAGER 0.5 mg naloxone (NARCAN) injection 0.2 mg [...] Recently Administered Medications Times are shown in CAR RENTAL AGENCY MANAGER. Scheduled Medication Order 05/23/2024 05/24/2024 05/25/2024 ceFAZolin [...] dose, Left chest port 1430 ($Given by Greer schreiber Clinician - Provider: [...] Marly Narvaez RN)1325 ($Given - Provider: Marly Narvaez RN)1333 ($Given - Provider: Marly Narvaez RN)1356 ($Given - Provider: Marly Narvaez RN)1404 ($Given - Provider: Marly Narvaez RN)1416 ($Given - Provider: Marly Narvaez RN)1425 ($Given - Provider: Marly Narvaez RN)1438 ($Given - Provider: Marly Narvaez RN) [...] administer intradermally., IR Intra-procedure 1358 ($Given by Greer schreiber Clinician - Provider: [...] Marly Narvaez RN)1325 ($Given - Provider: Marly Narvaez RN)1333 ($Given - Provider: Marly Narvaez RN)1356 ($Given - Provider: Marly Narvaez RN)1404 ($Given - Provider: Marly Narvaez RN)1416 ($Given - Provider: Marly Narvaez RN)1425 ($Given - Provider: Marly Narvaez RN)1438 ($Given - Provider: Marly Narvaez RN) naloxone (NARCAN) injection 0.2 mg(Linked Group 1) [...] procedure documented in this encounter Care Teams Traffic Or System Dispatcher Relationship Specialty Start Date End Date No Ref-Primary, Physician PCP - General 03/15/24 06/17/24 Mor Ramsey Medical Student 04/03/24 Case Samuel MD [address] [place] [address] 484, [address] [place] [address] Assigned Pediatric Specialist Provider 05/18/24 documented as of this encounter
--- OUTSIDE RECORDS SUMMARY | 2024-06-30 23:54 | XMS_ITS | Encounter Summary ---
Author Organization [facility] Address [address] [place] [address]. [place] [address] Care Team Providers Care Impregnator Name Role Phone No Ref-Primary, Physician Primary Care Provider Mor Ramsey Unavailable Unavailable Case Samuel MD Unavailable [phone] Encounter Details Date Type Department Care Team [...] on file Legal Sex Female 8:25 AM DRIVER OPERATOR Gender Identity Not on file Sexual Orientation Not on file documented as of this encounter Plan of Treatment Upcoming Encounters Date Type Department Care Team (Late st Contact Info) Description 07/10/2024 11:30 AM CDT Oncology Visit [facility] [address] [place] [phone] Case Samuel MD [address] [place] [address] 484, [address] [place] [address] documented as of this encounter Goals Goal Patient Goal Type Associated Problems Recent Progress Patient-Stated? Author Pain Management General On track( 025 12:40 PM DRIVER OPERATOR) Yes Juhi Benson, RN Note: Goal [...] on filedocumented in this encounter Care Teams Impregnator Relationship Specialty Start Date End Date No Ref-Primary, Physician PCP - General 03/15/24 06/17/24 Roxy [facility] Medical Student 04/03/24 Case Samuel MD [address] [place] [address] 484, [address] [place] [address] Assigned Pediatric Specialist Provider 05/18/24 documented as of this encounter
--- OUTSIDE RECORDS SUMMARY | 2024-06-30 23:54 | XMS_ITS | Encounter Summary ---
Author Organization [facility] Address [address] [place] [address]. [place] [address] Care Team Providers Care B2B Sales Consultant Name Role Phone No Ref-Primary, Physician Primary Care Provider Mor Ramsey Unavailable Unavailable Case Samuel MD Unavailable [phone] Juhi Benson RN Unavailable Unavailable Encounter Details Date Type Department Care Team (Late st Contact Info) Description 05/29/2024 Orders Only [facility] [address] [place] [address] Juhi Benson, SOFIA Sickle cell [...] on file Legal Sex Female 8:25 AM GLOBAL PRESIDENT Gender Identity Not on file Sexual Orientation Not on file documented as of this encounter Plan of Treatment Upcoming Encounters Date Type Department Care Team (Late st Contact Info) Description 07/10/2024 11:30 AM CDT Oncology Visit [facility] [address] [place] [address] Case Samuel MD [address] [place] [address] 484, [address] [place], [place] [address] documented as of this encounter Goals Goal Patient Goal Type Associated Problems Recent Progress Patient-Stated? Author Pain Management General On track( 025 12:40 PM GLOBAL PRESIDENT) Yes Juhi Benson, SOFIA Note: Goal Statement: [...] crisis documented in this encounter Care Teams B2B Sales Consultant Relationship Specialty Start Date End Date No Ref-Primary, Physician PCP - General 03/15/24 06/17/24 Mor Ramsey Medical Student 04/03/24 Case Samuel MD [address] [place] [address] 484, [address] [place] [address] Assigned Pediatric Specialist Provider 05/18/24 Juhi Benson, RN Specialty Veterinarian Hematology & Oncology 05/29/24 documented as of this encounter
--- OUTSIDE RECORDS SUMMARY | 2024-06-30 23:54 | XMS_ITS | Encounter Summary ---
Author Organization [facility] Address [address] [place] [address]. [place] [address] Care Team Providers Care Irrigator Gravity Flow Name Role Phone No Ref-Primary, Physician Primary Care Provider Mor Ramsey Unavailable Unavailable Case Samuel MD Unavailable [phone] Encounter Details Date Type Department Care Team [...] file Legal Sex Female 8:25 AM STEAM FLATTENER Gender Identity Not on file Sexual Orientation Not on file documented as of this encounter Plan of Treatment Upcoming Encounters Date Type Department Care Team (Late st Contact Info) Description 07/10/2024 11:30 AM CDT Oncology Visit [facility] [address] [place] [phone] Case Samuel MD [address] [place] [address] 484, [address] [place] [address] documented as of this encounter Goals Goal Patient Goal Type Associated Problems Recent Progress Patient-Stated? Author Pain Management General On track( 025 12:40 PM STEAM FLATTENER) Yes Juhi Benson, RN Note: Goal Statement: [...] on filedocumented in this encounter Care Teams Irrigator Gravity Flow Relationship Specialty Start Date End Date No Ref-Primary, Physician PCP - General 03/15/24 06/17/24 Roxy [facility] Medical Student 04/03/24 Case Samuel MD [address] [place] [address] 484, [address] [place] [address] Assigned Pediatric Specialist Provider 05/18/24 documented as of this encounter
[2024-06-30 23:55] LABS: Hematocrit 22.3 % (33.0-51.0); Immature Granulocytes Pct Auto 0.3 %; Lymphocytes Percent Auto 27.5 % (20-44); Mean Corpuscular HGB Conc 35 gm/dL (32-36); Mean Corpuscular Hemoglobin 33 pg (26-34); Mean Corpuscular Volume 95 fL (80-100); Monocytes Percent Auto 15.1 % (0.0-11.0); Neutrophils Percent Auto 55.1 % (42.0-72.0); Platelet Count* 392 K/uL (140-440); RDW Coefficient of Variation % 17.9 % (11.5-15.5); Red Blood Count 2.34 m/uL (4.00-5.20); White Blood Count* 17.46 K/uL (4.50-11.00)
--- OUTSIDE RECORDS SUMMARY | 2024-06-30 23:55 | XMS_ITS | Encounter Summary ---
Author Organization [facility] Address [address] [place] [address]. [place] [address] Care Team Providers Care Satellite Television Installer Name Role Phone No Ref-Primary, Physician Primary Care Provider Mor Ramsey Unavailable Unavailable Case Samuel MD Unavailable [phone] Juhi Benson RN Unavailable Unavailable Encounter Details [...] on file Legal Sex Female 8:25 AM RESIDENCY DIRECTOR Gender Identity Not on file Sexual Orientation Not on file documented as of this encounter Plan of Treatment Upcoming Encounters Date Type Department Care Team (Late st Contact Info) Description 07/10/2024 11:30 AM CDT Oncology Visit [facility] [address] [place] [address] Case Samuel MD [address] [place] [address] 484, [address] [place] [address] documented as of this encounter Goals Goal Patient Goal Type Associated Problems Recent Progress Patient-Stated? Author Pain Management General On track( 025 12:40 PM RESIDENCY DIRECTOR) Yes Juhi Benson, RN Note: Goal [...] on filedocumented in this encounter Care Teams Satellite Television Installer Relationship Specialty Start Date End Date No Ref-Primary, Physician PCP - General 03/15/24 06/17/24 Mor Ramsey Medical Student 04/03/24 Case Samuel MD [address] [place] [address] 484, [address] [place] [address] Assigned Pediatric Specialist Provider 05/18/24 Juhi Benson, RN Specialty Quality Assurance Supervisor Chassis Hematology & Oncology 05/29/24 documented as of this encounter
--- OUTSIDE RECORDS SUMMARY | 2024-06-30 23:55 | XMS_ITS | Encounter Summary ---
Author Organization [place] Address [facility] [address] Care Team Providers Care Acidity Tester Name Role Phone No Ref-Primary, Physician Primary Care Provider Mor Ramsey Unavailable Unavailable Case Samuel MD Unavailable [phone] Juhi Benson RN Unavailable Unavailable Reason for Referral * Mental Health Outpatient (Urgent: 3-5 Days) - Pending Review Specialty Diagnoses / Procedures Referred By Contac t Referred To Contact Behavioral Health Diagnoses Severe episode of recurrent major depressive disorder, without psychotic features (H) Case Samuel MD [address] [facility] [address], [address] [place] [address] Phone: tel: fax: Referral ID Status Reason Start Date Expiration Date V isits Requested Visits Authorized [id number] Pending Review 05/29/2024 05/29/2025 1 1 Question [...] provider. If you don't hear from a disability representative within 2 business days, please call [...] provider. If you don't hear from a disability representative within 2 business days, please call . ABAP PROGRAMMER Reason for Visit * Reason Comments Port Draw Labs drawn via port by RN in lab, vitals taken. Oncology Clinic Visit RTN Sickle cell Encounter Details Date Type Department Care Team (Late st Contact Info) Description 05/29/2024 11:30 AM SAP ABAP PROGRAMMER Oncology Visit [facility] [address] [place] [address] Case Samuel MD [address] [place] [address] [address], [address] [place], [place] [address] Severe episode of recurrent major depressive disorder, [...] file Legal Sex Female 8:25 AM SAP ABAP PROGRAMMER Gender Identity Not on file Sexual Orientation Not on file documented as of this encounter Last Filed Vital Signs Vital Sign Reading Time Taken Comments Blood Pressure 98/67 05/29/2024 11:09 AM SAP ABAP PROGRAMMER Pulse 106 05/29/2024 11:09 AM SAP ABAP PROGRAMMER Temperature 37.1 C (98.7 F) 05/29/2024 11:09 AM SAP ABAP PROGRAMMER Respiratory Rate 18 05/29/2024 11:09 AM SAP ABAP PROGRAMMER Oxygen Saturation 96% 05/29/2024 11:09 AM SAP ABAP PROGRAMMER Inhaled Oxygen Concentration - - Weight 54.6 kg (120 lb 6.4 oz) 05/29/2024 11:09 AM SAP ABAP PROGRAMMER Height - - Body Mass Index 22.75 05/29/2024 12:01 AM SAP ABAP PROGRAMMER documented in this encounter Progress Notes * [...] it has been hard to transition to [place], especially in winter with a toddler. She [...] She said that she was born in [place] but moved throughout her childhood because her dad was in the . She is the youngest of 9 children she said, though she is the only one with sickle cell disease. Among other places, she was living in [place] for a time and then moved to [place]. It was there that shemet her boyfriend. She ultimately moved back to [place] and he came with her. It was there that they had a daughter Chanda, now 2 years old. That was a difficult for her, and she feelslike she never wants to be again. She was living in [place], [place] and receiving care at [facility], though she did not get the sense that form setter there was super comfortable with sickle cell [...] about 3 weeks ago. She moved to [place] about 2 months ago. Her boyfriend is [...] worked up for symptomatic gallstones back in [place], but there were some delays in getting a cholecystectomy and by the time it was getting scheduled, they were moving to [place]. She reports that she has had a [...] them both so she can be a luuk-lx-hikn mom. Sickle Cell Disease Comprehensive Checklist Stroke/silent [...] titrate as needed and notify the primary form setter via ITT EXIM message if changes to the plan below are needed. Also please note that there is a mental health component to her pain, particularly in terms of adjustment to [place] which is likely to make her pain worse.. 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 She is 1 of 9 [...] Social Connections: Socially Integrated (03/28/2024) [facility] Social Connections Do you often feel lonely [...] Rate 86 BPM Atrial Rate 86 BPM AR Interval 154 ms QRS Duration 78 ms QT 370 ms QTc 442 ms P [place] 18 degrees R AXIS 55 degrees T [place] 25 degrees Interpretation ECG Sinus rhythm Nonspecific T wave abnormality Abnormal ECG When compared with ECG of 14-May-2024 22:12, Nonspecific T wave abnormality now evident in Inferior leads Confirmed by SEE ED PROVIDER NOTE FOR, ECG INTERPRETATION (4000), editorial clerk Neeraj Allison ([id number]) on 05/20/2024 7:48:17 AM Basic metabolic panel [...] Absolute NRBCs 0.2 10e3/uL Extra Green Top ([place] Heparin) Tube Collection Time: 05/20/24 9:09 AM Result Value Ref Range Hold Specimen [facility] Basic metabolic panel Collection Time: 05/20/24 9:09 [...] Rate 103 BPM Atrial Rate 103 BPM AR Interval 124 ms QRS Duration 80 ms QT 316 ms QTc 413 ms P [place] 82 degrees R AXIS 90 degrees T [place] 70 degrees Interpretation ECG Sinus tachycardia Rightward axis Borderline ECG When compared with ECG of 20-May-2024 07:36, Nonspecific T wave abnormality no longer evident in Anterior leads Confirmed by SEE ED PROVIDER NOTE FOR, ECG INTERPRETATION (4000), editorial clerk Leticia Warner ([id number]) on 05/22/2024 4:13:58 PM Basic metabolic panel [...] None Seen Elliptocytes Slight (A) None Seen [employer] Bodies Present (A) None Seen Polychromasia [...] QT 362 ms QTc 409 ms P [place] 61 degrees R AXIS 92 degrees T [place] 49 degrees Interpretation ECG Sinus rhythm Rightward axis Borderline ECG When compared with ECG of 22-May-2024 15:14, Nonspecific T wave abnormality no longer evident in Inferior leads Confirmed by SEE ED PROVIDER NOTE FOR, ECG INTERPRETATION (4000), editorial clerk SELMA GARRISON ([id number]) on 05/23/2024 7:30:33 PM CBC (+ platelets, [...] Rate 91 BPM Atrial Rate 91 BPM AR Interval 142 ms QRS Duration 80 ms QT 352 ms QTc 432 ms P [place] 39 degrees R AXIS 62 degrees T [place] 23 degrees Interpretation ECG Sinus rhythm Nonspecific T wave abnormality Abnormal ECG When compared with ECG of 23-May-2024 18:54, Nonspecific T wave abnormality now evident in Inferior leads Nonspecific T wave abnormality now evident in Anterior leads Confirmed by SEE ED PROVIDER NOTE FOR, ECG INTERPRETATION (4000), editorial clerk BEN PRAKASH ([id number]) on 05/27/2024 12:22:37 PM Comprehensive metabolic panel [...] female who recently started receiving care at [facility] for sickle cell disease, HbSS (Apr 2024). She has several comorbidities related to sickle cell disease, including Chronic pain, AVN of the left hip, history of pulmonary embolism, history of transfusions with iron overload, history of stroke(details unclear), right eye retinopathy, acute on chronic anemia, gallstones, and a history of acute chest syndrome. She has been a regular visitor to the [facility] emergency department as well, and I [...] just the SCD. Her adjustment to the [facility] has been challenging, particularly at this time of year and being at home with their daughter Today, we focused on the mental health, including both psychological and psychiatric care. In my discussions with the emergency department colleagues at [facility], I stressed that a sustainable improvement [...] think outside the box. - Mental health care nurse rn referral placed HbSS Disease with several [...] around the hip and femur strong. -Orthopedic care nurse rn referral placed. Will defer to them [...] per the note Case Samuel MD Classical [employer] [facility] Division of Hematology, Oncology, and Transplantation [facility] [place] The longitudinal plan of care for the diagnosis(es)/condition(s) as documented were addressed during this visit. Due to the added complexity in care, I will continue to support Gianna in the subsequent management and with ongoing continuity of care. ABAP PROGRAMMER documented in this encounter Nursing Notes * [...] checked into next appt. Jenifer Sheffield RN ABAP PROGRAMMER * Laura Rg - 05/29/2024 11:30 AM [...] not needed today. Pharmacy name entered into [employer]: [facility] [address] [place], [place] - [phone] [facility] - [place], [place] - [address] [facility] Frailty Screening: Is the patient here for a new oncology consult visit in cancer care? 2. No Clinical concerns:Provider came in during rooming. Laura Rg ABAP PROGRAMMER documented in this encounter Plan of Treatment Upcoming Encounters Date Type Department Care Team (Late st Contact Info) Description 07/10/2024 11:30 AM CDT Oncology Visit [facility] [address] [place] [address] Case Samuel MD [address] [facility] [address], [address] [place] [address] Scheduled Referrals Name Type Priority Associated Diagnoses Orde r Schedule Adult Mental Health Home Maker Referral Referral Urgent: 3-5 Days Severe episode of recurrent major depressive disorder, without psychotic features (H) Expected: 05/29/2024 (Approximate), Expires: 05/29/2025 documented as of this encounter Goals Goal Patient Goal Type Associated Problems Recent Progress Patient-Stated? Author Pain Management General On track( 025 12:40 PM SAP ABAP PROGRAMMER) Yes Juhi Benson, SOFIA Note: Goal Statement: [...] AND PLATELET MORPHOLOGY Routine 05/29/2024 11:23 AM SAP ABAP PROGRAMMER CBC WITH PLATELETS AND DIFFERENTIAL Routine 05/29/2024 11:23 AM SAP ABAP PROGRAMMER TYPE AND SCREEN, ADULT Add-On 11:23 AM SAP ABAP PROGRAMMER History of transfusion BILL ONLY- CAPILLARY ELECTROPHORESIS Routine 05/29/2024 11:23 AM SAP ABAP PROGRAMMER BILL ONLY- SICKLE SOLUBILITY BILL Routine 05/29/2024 11:23 AM SAP ABAP PROGRAMMER ROUTINE UA WITH MICROSCOPIC REFLEX TO CULTURE Routine 05/29/2024 11:23 AM SAP ABAP PROGRAMMER CBC WITH PLATELETS & DIFFERENTIAL Routine 05/29/2024 11:23 AM SAP ABAP PROGRAMMER GENOTYPE RED BLOOD CELL Routine 05/29/19 11:23 AM SAP ABAP PROGRAMMER History of transfusion RETICULOCYTE COUNT Routine 05/29/2024 11 :23 AM SAP ABAP PROGRAMMER HEMOGLOBIN EVAL REFLEX TO ELP OR RBC SOLUBILITY Routine 05/29/2024 11:23 AM SAP ABAP PROGRAMMER FERRITIN Routine 05/29/2024 11:23 AM SAP ABAP PROGRAMMER COMPREHENSIVE METABOLIC PANEL Routine 05/29/2024 11:23 AM SAP ABAP PROGRAMMER ABO/RH TYPE AND SCREEN Routine 11:23 AM SAP ABAP PROGRAMMER History of transfusion URINE CULTURE Routine 05/29/2024 11:23 AM SAP ABAP PROGRAMMER documented in this encounter Results * HGB Eval Reflex to ELP or RBC Solubility (05/29/2024 11:23 AM SAP ABAP PROGRAMMER) Alpha Globin (HBA1 and HBA2) DD Bill Billed 05/31/2024 2:46 PM SAP ABAP PROGRAMMER [employer] Comment: Performed By: [facility] [address] [place] [id number] Gang Mower Operator: Devon Healy MD, PhD CLIA Number: [id number] Blood VENOUS LINE / Unknown IVAD (Port) / Unknown 05/29/2024 11:23 AM SAP ABAP PROGRAMMER 05/29/2024 11:30 AM SAP ABAP PROGRAMMER Result [facility] Case Samuel MD LAB CHARGE PERFORMABLES F inal Result Performing Organization Address [facility]/ZIP Co de Phone Number [employer] [address] [place] [address], [facility] [phone] * Bill Only- Sickle Solubility Bill (05/29/2024 11:23 AM SAP ABAP PROGRAMMER) Sickle Solubility Reflex Bill Billed 05/31/2024 2:46 PM SAP ABAP PROGRAMMER [facility] Comment: Performed By: [facility] [address] [facility], [facility]108 Gang Mower Operator: Devon Healy MD, PhD CLIA Number: [id number] Blood VENOUS LINE / Unknown IVAD (Port) / Unknown 05/29/2024 11:23 AM SAP ABAP PROGRAMMER 05/29/2024 11:30 AM SAP ABAP PROGRAMMER Case Samuel MD LAB CHARGE PERFORMABLES F inal Result Performing Organization Address [facility] Co de Phone Number [employer] [address] [place] [address], [facility] [phone] * Adult Type and Screen (05/29/2024 11:23 AM SAP ABAP PROGRAMMER) ABO/RH(D) A POS 05/28/2024 6:00 PM SAP ABAP PROGRAMMER [facility] Antibody Screen Negative Negative 05/28/2024 6:00 PM SAP ABAP PROGRAMMER [facility] SPECIMEN EXPIRATION DATE [id number] 05/28/2024 6:00 PM SAP ABAP PROGRAMMER [facility] Blood VENOUS LINE / Unknown IVAD (Port) / Unknown 05/29/2024 11:23 AM SAP ABAP PROGRAMMER 05/29/2024 11:29 AM SAP ABAP PROGRAMMER Result [facility] Case Samuel MD LAB - BLOOD BANK TEST ORD ER Final Result [facility] [address] [place] [address], [facility] * Urine Culture (05/29/2024 11:23 AM SAP ABAP PROGRAMMER) Pathologist [facility] Culture <10,000 CFU/mL Mixture of Urogenital Vickie 05/30/2024 9:45 AM SAP ABAP PROGRAMMER [facility] Urine URINE SPECIMEN OBTAINED BY CLEAN CATCH PROCEDURE / Unknown Non-blood Collection / Unknown 05/29/2024 11:23 AM SAP ABAP PROGRAMMER 05/29/2024 11:41 AM SAP ABAP PROGRAMMER us Case Samuel MD LAB - MICRO GENERAL ORDER SYD Final Result [facility] Inf. Diseases Diag. Lab [address] [facility], [address] [place] [address] * (ABNORMAL) RBC and Platelet Morphology (05/29/2024 11:23 AM SAP ABAP PROGRAMMER) [facility] RBC Morphology Confirmed RBC Indices 05/29/2024 12:33 PM SAP ABAP PROGRAMMER [facility] LAB Platelet Assessment Automated Count Confirmed. Platelet morphology is normal. Automated Count Confirmed. Platelet morphology is normal. 05/29/2024 12:33 PM SAP ABAP PROGRAMMER [facility] Polychromasia Moderate(A) None Seen 05/29/2024 12:33 PM SAP ABAP PROGRAMMER [facility] Sickle Cells Moderate(A) None Seen 05/29/2024 12:33 PM SAP ABAP PROGRAMMER [facility] Target Cells Slight(A) None Seen 05/29/2024 12:33 PM SAP ABAP PROGRAMMER [facility] Teardrop Cells Slight(A) None Seen 05/29/2024 12:33 PM SAP ABAP PROGRAMMER [facility] Blood VENOUS LINE / Unknown IVAD (Port) / Unknown 05/29/2024 11:23 AM SAP ABAP PROGRAMMER 05/29/2024 11:29 AM SAP ABAP PROGRAMMER us Case Samuel MD LAB - BLOOD ORDERABLES Fi nal Result [facility] CORE LAB [facility] [address] [facility] 1st [place] [address] * (ABNORMAL) CBC with platelets and differential (05/29/2024 11:23 AM SAP ABAP PROGRAMMER) [facility] WBC Count 15.8(H) 4.0 - 11.0 10e3/uL 05/29/2024 12:37 PM [facility] - CORE LAB RBC Count 2.11(L) 3.80 - 5.20 10e6/uL 05/29/2024 12:37 PM [facility] - CORE LAB Hemoglobin 6.7(LL) 11.7 - 15.7 g/dL 05/29/2024 12:37 PM [facility] - CORE LAB Hematocrit 19.2(L) 35.0 - 47.0 % 05/29/2024 12:37 PM [facility] - CORE LAB MCV 91 78 - 100 fL 05/29/2024 12:37 PM [facility] - CORE LAB MCH 31.8 26.5 - 33.0 pg 05/29/2024 12:37 PM [facility] - CORE LAB MCHC 34.9 31.5 - 36.5 g/dL 05/29/2024 12:37 PM [facility] - CORE LAB RDW 23.1(H) 10.0 - 15.0 % 05/29/2024 12:37 PM [facility] - CORE LAB Platelet Count 417 150 - 450 10e3/uL 05/29/2024 12:37 PM [facility] - CORE LAB % Neutrophils 56 % 05/29/2024 12:37 PM [facility] - CORE LAB % Lymphocytes 25 % 05/29/2024 12:37 PM [facility] % Monocytes 15 % 05/29/2024 12:37 PM [facility] % Eosinophils 2 % 05/29/2024 12:37 PM [facility] - CORE LAB % Basophils 1 % 05/29/2024 12:37 PM [facility] % Immature Granulocytes 1 % 05/29/2024 12:37 PM [facility] NRBCs per 100 WBC 2(H) <1 /100 025 12:37 PM [facility] Absolute Neutrophils 8.8(H) 1.6 - 8.3 10e3/uL 05/29/2024 12:37 PM [facility] Absolute Lymphocytes 4.0 0.8 - 5.3 10e3/uL 05/29/2024 12:37 PM [facility] Absolute Monocytes 2.4(H) 0.0 - 1.3 10e3/uL 05/29/2024 12:37 PM SAP ABAP PROGRAMMER [facility] Absolute Eosinophils 0.3 0.0 - 0.7 10e3/uL 05/29/2024 12:37 PM SAP ABAP PROGRAMMER [facility] Absolute Basophils 0.2 0.0 - 0.2 10e3/uL 05/29/2024 12:37 PM SAP ABAP PROGRAMMER [facility] Absolute Immature Granulocytes 0.2 <=0.4 10e3/uL 05/29/2024 12:37 PM SAP ABAP PROGRAMMER [facility] Absolute NRBCs 0.2 10e3/uL 05/29/2024 12:37 PM SAP ABAP PROGRAMMER [facility] Blood VENOUS LINE / Unknown IVAD (Port) / Unknown 05/29/2024 11:23 AM SAP ABAP PROGRAMMER 05/29/2024 11:29 AM SAP ABAP PROGRAMMER us Case Samuel MD LAB - BLOOD ORDERABLES Fi nal Result [facility] Surgery [address] 1st [place] [address] * Genotype Red Blood Cell (05/29/2024 11:23 AM SAP ABAP PROGRAMMER) Pathologist [facility] See Scanned Result GENOTYPE RED BLOOD CELL-Scanned 05/31/2024 10:16 AM [facility] Blood VENOUS LINE / Unknown IVAD (Port) / Unknown 05/29/2024 11:23 AM SAP ABAP PROGRAMMER 05/29/2024 11:29 AM SAP ABAP PROGRAMMER us Case Samuel MD LAB - BLOOD ORDERABLES Fi nal Result [facility] [address] [place], [place] [address] [phone] * (ABNORMAL) HGB Eval Reflex to ELP or RBC Solubility (05/29/2024 11:23 AM SAP ABAP PROGRAMMER) Hemoglobin A 15.0(L) 95.0 - 97.9 % 05/31/2024 2:46 PM SAP ABAP PROGRAMMER [facility] Hemoglobin A2 3.0 2.0 - 3.5 % 05/31/2024 2:46 PM SAP ABAP PROGRAMMER [facility] Hemoglobin F 10.8(H) 0.0 - 2.1 % 05/31/2024 2:46 PM SAP ABAP PROGRAMMER [facility] Hemoglobin S 71.2(H) 0.0 - 0.0 % 05/31/2024 2:46 PM SAP ABAP PROGRAMMER [facility] Hemoglobin C 0.0 0.0 - 0.0 % 05/31/2024 2:46 PM SAP ABAP PROGRAMMER [facility] Hemoglobin E 0.0 0.0 - 0.0 % 05/31/2024 2:46 PM SAP ABAP PROGRAMMER [facility] Hemoglobin - Other 0.0 0.0 - 0.0 % 05/31/2024 2:46 PM SAP ABAP PROGRAMMER [facility] Hemoglobin Evaluation See Note 05/31/2024 2:46 PM SAP ABAP PROGRAMMER [facility] Comment: Impression: Hb S present [...] Globin (HBA1 and HBA2) Deletion/Duplication ([facility] test #8071386) should be considered. Hb S/beta-plus thalassemia is typically characterized by more Hb S than Hb A with the presence of microcytosis. If microcytosis is present and Hb S/beta-plus thalassemia is suspected, Beta Globin (HBB) Sequencing ([facility] test #[id number]) is suggested. Hemoglobin analysis should be offered [...] developed and its performance characteristics determined by [facility]. It has not been cleared or approved by the U.S. Food and Drug Administration. This test was performed in a CLIA-certified laboratory and is intended for clinical purposes. Sickle Cell Solubility Reflex Positive(A) 05/31/2024 2:46 PM SAP ABAP PROGRAMMER [facility] [employer] Comment: INTERPRETIVE INFORMATION: Sickle Cell Solubility Reflex Not Performed: Solubility testing for Hemoglobin S not indicated. 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 Additional charges apply. Conf Previous: Positive for Hemoglobin S by HPLC. Solubility testing performed previously and not repeated with this submission. Hgb Capillary Electrophoresis Reflex Performed 05/31/2024 2:46 PM SAP ABAP PROGRAMMER [facility] [employer] Comment: INTERPRETIVE INFORMATION: Hgb Capillary Electrophoresis Reflex Not Performed: Confirmation by Capillary Electrophoresis not indicated. Performed: Results confirmed by Capillary Electrophoresis. Additional charges apply. Conf Previous: Capillary Electrophoresis confirmation performed as part of a previous submission. Confirmation not repeated with this submission. Performed By: [facility] [address] [place] [id number] Gang Mower Operator: Devon Healy MD, PhD CLIA Number: [id number] Blood VENOUS LINE / Unknown IVAD (Port) / Unknown 05/29/2024 11:23 AM SAP ABAP PROGRAMMER 05/29/2024 11:30 AM SAP ABAP PROGRAMMER us Case Samuel MD LAB - BLOOD ORDERABLES Fi nal Result [facility] [address] [place] [id number], [facility] [phone] * (ABNORMAL) Ferritin (05/29/2024 11:23 AM SAP ABAP PROGRAMMER) [facility] Ferritin 1,559(H) 6 - 175 ng/mL 05/29/2024 12:43 PM SAP ABAP PROGRAMMER [facility] Blood VENOUS LINE / Unknown IVAD (Port) / Unknown 05/29/2024 11:23 AM SAP ABAP PROGRAMMER 05/29/2024 11:29 AM SAP ABAP PROGRAMMER Case Samuel MD LAB - BLOOD ORDERABLES Fi nal Result [facility] [place] [address] [facility] 1st [place] [address] * (ABNORMAL) Routine UA with micro reflex to culture (05/29/2024 11:23 AM [facility]) Color Urine Yellow Colorless, Straw, Light Yellow, Yellow 05/29/2024 11:41 AM [facility] - [facility]ORE LAB Appearance Urine Slightly Cloudy(A) Clear 05/29/2024 11:41 AM [facility] - [facility] LAB Glucose Urine Negative Negative mg/dL 05/29/2024 11:41 AM [facility] - [facility] LAB Bilirubin Urine Negative Negative 11:41 AM [facility] - [facility] LAB Ketones Urine Negative Negative mg/dL 05/29/2024 11:41 AM [facility] - CORE LAB Specific [place] Urine 1.013 1.003 - 1.035 05/29/2024 11:41 AM [facility] - CORE LAB Blood Urine Negative Negative 05/29/2024 11:41 AM [facility] - [facility] LAB pH Urine 7.0 5.0 - 7.0 05/29/2024 11:41 AM [facility] - [facility] LAB Protein Albumin Urine Negative Negative mg/dL 05/29/2024 11:41 AM [facility] - [facility] LAB Urobilinogen Urine Normal Normal, 2.0 mg/dL 05/29/2024 11:41 AM [facility] - [facility] LAB Nitrite Urine Negative Negative 05/29/2024 11:41 AM [facility] - [facility] LAB Leukocyte Esterase Urine Moderate(A) Negative 05/29/2024 11:41 AM [facility] - [facility] LAB Mucus Urine Present(A) None Seen /LPF 05/29/2024 11:41 AM [facility] - CORE LAB RBC Urine 6(H) <=2 /HPF 05/29/2024 11:41 AM [facility] - [facility] WBC Urine 3 <=5 /HPF 05/29/2024 11:41 AM [facility] Squamous Epithelials Urine 18(H) <=1 /HPF 05/29/2024 11:41 AM [facility] Urine URINE SPECIMEN OBTAINED BY CLEAN CATCH PROCEDURE / Unknown Non-blood Collection / Unknown 05/29/2024 11:23 AM SAP ABAP PROGRAMMER 05/29/2024 11:29 AM SAP ABAP PROGRAMMER Narrative [facility] - 05/29/2024 11:41 AM SAP ABAP PROGRAMMER Urine Culture ordered based on laboratory criteria Case Samuel MD LAB - URINE ORDERABLES Fi nal Result [facility] [address] [place] [address] 1st [place] [address] * (ABNORMAL) Comprehensive metabolic panel (05/29/2024 11:23 AM [facility]) Sodium 139 135 - 145 mmol/L 05/29/2024 11:58 AM [facility] Potassium 4.2 3.4 - 5.3 mmol/L 05/29/2024 11:58 AM [facility] Carbon Dioxide (CO2) 24 22 - 29 mmol/L 05/29/2024 11:58 AM [facility] Anion Gap 10 7 - 15 mmol/L 05/29/2024 11:58 AM [facility] Urea Nitrogen 9.2 6.0 - 20.0 mg/dL 05/29/2024 11:58 AM [facility] Creatinine 0.75 0.51 - 0.95 mg/dL 05/29/2024 11:58 AM [facility] GFR Estimate >90 >60 mL/min/1.7 3m2 05/29/2024 11:58 AM [facility] Comment:eGFR calculated usin 2020 CKD-EPI equation. Calcium 8.9 8.8 - 10.4 mg/dL 05/29/2024 11:58 AM [facility] Chloride 105 98 - 107 mmol/L 05/29/2024 11:58 AM [facility] Glucose 109(H) 70 - 99 mg/dL 05/29/2024 11:58 AM [facility] Alkaline Phosphatase 83 40 - 150 U/L 05/29/2024 11:58 AM [facility] AST 49(H) 0 - 45 U/L 05/29/2024 11:58 AM [facility] ALT 21 0 - 50 U/L 05/29/2024 11:58 AM [facility] Protein Total 7.3 6.4 - 8.3 g/dL 05/29/2024 11:58 AM [facility] Albumin 4.1 3.5 - 5.2 g/dL 05/29/2024 11:58 AM [facility] Bilirubin Total 2.2(H) <=1.2 mg/dL 05/29/2024 11:58 AM [facility] Blood VENOUS LINE / Unknown IVAD (Port) / Unknown 05/29/2024 11:23 AM SAP ABAP PROGRAMMER 05/29/2024 11:29 AM SAP ABAP PROGRAMMER Case Samuel MD LAB - BLOOD ORDERABLES Fi nal Result Performing Organization Address [facility] de Phone Number [facility] [address] [place] [address] * (ABNORMAL) Reticulocyte count (05/29/2024 11:23 AM SAP ABAP PROGRAMMER) [facility] % Reticulocyte 29.8(H) 0.5 - 2.0 % 05/29/2024 12:00 PM SAP ABAP PROGRAMMER [facility] Absolute Reticulocyte 0.631(H) 0.025 - 0.095 10e6/uL 05/29/2024 12:00 PM SAP ABAP PROGRAMMER [facility] Blood VENOUS LINE / Unknown IVAD (Port) / Unknown 05/29/2024 11:23 AM SAP ABAP PROGRAMMER 05/29/2024 11:29 AM SAP ABAP PROGRAMMER us Case Samuel MD LAB - BLOOD ORDERABLES Fi nal Result Performing Organization Address [facility] Co de Phone Number [facility] [address] [place] [address] documented in this encounter Visit Diagnoses Diagnosis [...] Wed05/29/24 at 1130 $Given 05/29/2024 11:29 AM SAP ABAP PROGRAMMER 5 mLs sodium chloride (PF) 0.9% PF flush 20 mL 20 mL, Intravenous, ONCE, On Wed05/29/24 at 1130, For 1 dose $Given 05/29/2024 11:30 AM SAP ABAP PROGRAMMER 20 mLs documented in this encounter Care Teams Acidity Tester Relationship Specialty Start Date End Date No Ref-Primary, Physician PCP - General 03/15/24 06/17/24 Mor Ramsey Medical Student 04/03/24 Case Samuel MD [address] [place] [address] [address] [place] [address] Assigned Pediatric Specialist Provider 05/18/24 Juhi [facility], RN Specialty Director Of Marketing Hematology & Oncology 05/29/24 documented as of this encounter
--- OUTSIDE RECORDS SUMMARY | 2024-06-30 23:55 | XMS_ITS | Encounter Summary ---
Author Organization [place] Address [address] [place] [address]. [place] [address] Care Team Providers Care Wool Merchant Name Role Phone No Ref-Primary, Physician Primary Care Provider Mor Ramsey Unavailable Unavailable Case Samuel MD Unavailable [phone] Juhi Benson RN Unavailable Unavailable Reason for Visit * Reason Comments Sickle Cell Pain Crisis Encounter Details Date Type Department Care Team (Late st Contact Info) Description 06/01/2024 11:41 PM FIELD RECORDER - 06/02/2024 2:35 AM [facility] Emergency [facility] Emergency Room [address] [place] [address] Noel Pinzon MD [address] [place] [address] Sickle cell pain crisis (H) Discharge Disposition: [...] file Legal Sex Female 8:25 AM FIELD RECORDER Gender Identity Not on file Sexual Orientation Not on file documented as of this encounter Last Filed Vital Signs Vital Sign Reading Time Taken Comments Blood Pressure 117/69 06/02/2024 2:15 AM FIELD RECORDER Pulse 73 06/02/2024 2:15 AM FIELD RECORDER Temperature 36.7 C (98.1 F) 06/01/2024 10:44 PM FIELD RECORDER Respiratory Rate 15 06/02/2024 2:00 AM FIELD RECORDER Oxygen Saturation 95% 06/02/2024 2:15 AM FIELD RECORDER Inhaled Oxygen Concentration - - Weight 54.4 kg (120 lb) 06/01/2024 10:44 PM FIELD RECORDER Height - - Body Mass Index 22.67 05/31/2024 9:39 PM FIELD RECORDER documented in this encounter Discharge Instructions * Discharge Instructions* Noel Pinzon MD - 06/02/2024 1:57 AM FIELD RECORDER Continue outpatient follow up and cares with your specialist. 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 D RECORDER D RECORDER documented in this encounter Medications at Time [...] questions were answered. Vitally stable upon discharge. D RECORDER D RECORDER * Noel Pinzon MD - 06/01/2024 11:07 PM CST Emergency Department Encounter Evaluation Date & Time: No admission date for patient encounter. CHIEF COMPLAINT: Sickle Cell Pain Crisis Triage Note:PT is coming in tonight for a sickle cell crisis. Pt has been waiting for her pharmacy to fill her RX. They stated that pharmacy might have the RX tomorrow. No OTC medication EXTRUSION BENDER. ED COURSE & MEDICAL DECISION MAKING: Pt [...] history is provided by the patient. No loader magazine grinder was used. Gianna Hernández is a 29 [...] my direction. Noel Pinzon DO Emergency Medicine [facility] EMERGENCY ROOM 06/01/2024 11:07 PM Noel Pinzon MD 06/02/24 0236 D RECORDER * Aminata Farley, RN - 06/01/2024 10:45 PM CST PT is coming in tonight for a sickle cell crisis. Pt has been waiting for her pharmacy to fill her RX. They stated that pharmacy might have the RX tomorrow. No OTC medication EXTRUSION BENDER. Triage Assessment (Adult) Row Name 06/01/24 2244 Triage Assessment Airway WDL WDL Respiratory WDL Respiratory WDL WDL Skin Circulation/Temperature WDL Skin Circulation/Temperature WDL WDL Cardiac WDL Cardiac WDL WDL Peripheral/Neurovascular WDL Peripheral Neurovascular WDL WDL Cognitive/Neuro/Behavioral WDL Cognitive/Neuro/Behavioral WDL WDL D RECORDER documented in this encounter Plan of Treatment Upcoming Encounters Date Type Department Care Team (Late st Contact Info) Description 07/10/2024 11:30 AM CDT Oncology Visit [facility] [address] [place] [address] Case Samuel MD [address] [place] [address] [address], [address] [place], [place] [address] documented as of this encounter Goals Goal Patient Goal Type Associated Problems Recent Progress Patient-Stated? Author Pain Management General On track( 025 12:40 PM FIELD RECORDER) Yes Juhi [facility], RN Note: Goal Statement: [...] For 1 dose $Given 06/02/2024 1:17 AM FIELD RECORDER 50 mg heparin lock flush 10 unit/mL [...] each port lumen $Given 06/02/2024 2:29 AM FIELD RECORDER 5 mLs HYDROmorphone (DILAUDID) injection 2 mg 2 mg, Intravenous, ONCE, On Citlali 06/01/24 at 2330, For 1 dose $Given 06/02/2024 12:07 AM FIELD RECORDER 2 mg HYDROmorphone (DILAUDID) injection 2 mg 2 mg, Intravenous, EVERY 1 HOUR PRN, severe pain, Starting on Citlali 06/01/24 at 2308, For 2 doses $Given 06/02/2024 2:17 AM FIELD RECORDER 2 mg $Given 06/02/2024 1:16 AM FIELD RECORDER 2 mg lactated ringers BOLUS 1,000 mL Intravenous, 1,000 mL, ONCE, On Citlali 06/01/24 at 2330, For 1 dose $New Bag 06/02/2024 12:06 AM FIELD RECORDER 1,000 mLs ondansetron (ZOFRAN) injection 8 mg 8 mg, Intravenous, ONCE, Administer over 2-5 Minutes, On Citlali 06/01/24 at 2330, For 1 dose $Given 06/02/2024 12:06 AM FIELD RECORDER 8 mg sodium chloride (PF) 0.9% PF [...] each port lumen. $Given 06/02/2024 12:12 AM FIELD RECORDER 20 mLs documented in this encounter Active and Recently Administered Medications Times are shown in FIELD RECORDER. Scheduled Medication Order 05/31/2024 06/01/2024 06/02/2024 diphenhydrAMINE [...] documented in this encounter Care Teams Wool Merchant Relationship Specialty Start Date End Date No Ref-Primary, Physician PCP - General 03/15/24 06/17/24 Mor Ramsey Medical Student 04/03/24 Case Samuel MD [address] [place] [address] [address] [place] [address] Assigned Pediatric Specialist Provider 05/18/24 Juhi [facility], RN Specialty Gauge Maker Hematology & Oncology 05/29/24 documented as of this encounter
--- OUTSIDE RECORDS SUMMARY | 2024-06-30 23:55 | XMS_ITS | Encounter Summary ---
Author Organization [place] Address [address] [place] [address]. [place] [address] Care Team Providers Care Aba Tutor Name Role Phone No Ref-Primary, Physician Primary Care Provider Mor Ramsey Unavailable Unavailable Case Samuel MD Unavailable [phone] Juhi Benson RN Unavailable Unavailable Reason for Visit * Reason Onset Date Comments Refill Request 06/05/2024 Encounter Details Date Type Department Care Team (Late st Contact Info) Description 06/05/[address] 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 Samuel SKIDDER OPERATOR Reviewed: Yes Send to provider: Routed to dr. Samuel and ESTEVAN Reynaga MATIC EMBROIDERY MACHINE TENDER documented in this encounter Plan of Treatment Upcoming Encounters Date Type Department Care Team (Late st Contact Info) Description 07/10/2024 11:30 AM CDT Oncology Visit [facility] [address] [place] [address] Case Samuel MD [address] [facility] [address], [address] [place] [address] documented as of this encounter Goals Goal Patient Goal Type Associated Problems Recent Progress Patient-Stated? Author Pain Management General On track( 025 12:40 PM AUTOMATIC EMBROIDERY MACHINE TENDER) Yes Juhi Benson RN Note: Goal [...] crisis documented in this encounter Care Teams Aba Tutor Relationship Specialty Start Date End Date No Ref-Primary, Physician PCP - General 03/15/24 06/17/24 Mor Ramsey Medical Student 04/03/24 Case Samuel MD [address] [place] [address] [address], [address] [place], [place] [address] Assigned Pediatric Specialist Provider 05/18/24 Juhi Benson RN Specialty [employer] Medical Sergeant Hematology & Oncology 05/29/24 documented as of this encounter
--- OUTSIDE RECORDS SUMMARY | 2024-06-30 23:55 | XMS_ITS | Encounter Summary ---
Author Organization [place] Address [address] [place] [address]. 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 Author Pain Management General On track( 025 12:40 PM GUARD ENTRANCE REGISTRAR) Yes Juhi [facility], RN Note: Goal [...] on filedocumented in this encounter Care Teams Crm Coordinator Relationship Specialty Start Date End Date No Ref-Primary, Physician PCP - General 03/15/24 06/17/24 R[facility] Medical Student 04/03/24 Case Samuel MD [address] [place] [address] [address], [address] [place] [address] Assigned Pediatric Specialist Provider 05/18/24 documented as of this encounter
--- OUTSIDE RECORDS SUMMARY | 2024-06-30 23:55 | XMS_ITS | Encounter Summary ---
Author Organization [facility] Address [address] [place] [address] Care Team Providers Care Shipboard Intelligence Analyst Name Role Phone No Ref-Primary, Physician Primary Care Provider Mor Ramsey Unavailable Unavailable Case Samuel MD Unavailable [phone] Juhi Benson RN Unavailable Unavailable Reason for Visit * Reason Comments Sickle Cell Pain Crisis Encounter Details Date Type Department Care Team (Late st Contact Info) Description 05/31/2024 9:56 PM EDUCATION REP - 06/01/2024 12:46 AM [facility] Emergency [facility] [place] [address] Carley Riggins MD [address] [address] Sickle cell pain crisis (H) Discharge Disposition: [...] on file Legal Sex Female 8:25 AM EDUCATION REP Gender Identity Not on file Sexual Orientation Not on file documented as of this encounter Last Filed Vital Signs Vital Sign Reading Time Taken Comments Blood Pressure 118/63 06/01/2024 12:41 AM EDUCATION REP Pulse 71 06/01/2024 12:41 AM EDUCATION REP Temperature 36.7 C (98 F) 05/31/2024 9:39 PM EDUCATION REP Respiratory Rate 20 05/31/2024 9:39 PM EDUCATION REP Oxygen Saturation 98% 06/01/2024 12:41 AM EDUCATION REP Inhaled Oxygen Concentration - - Weight 54.4 kg (120 lb) 05/31/2024 9:39 PM EDUCATION REP Height 154.9 cm (5' 1) 05/31/2024 9:39 PM EDUCATION REP Body Mass Index 22.67 05/31/2024 9:39 PM EDUCATION REP documented in this encounter Discharge Instructions * Attachments The following attachments cannot be sent through Care Everywhere. * Sickle Cell Crisis (Wallisian) documented in this encounter Medications at Time [...] chest. She recently moved to [place] from [place], and notes the difference in temperature may be exacerbating her symptoms. Patient denies any other complaints at this time. 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 Recently moved to [place] from [place], [place]. She is 1 of 9 [...] Social Connections: Socially Integrated (03/28/2024) [facility] Social Connections Do you often feel lonely [...] Automated Count Confirmed. Platelet morphology is normal. [place] Cells Slight (*) Elliptocytes Slight (*) [place] Bodies Present (*) Polychromasia Slight (*) Sickle [...] my direction. Carley Riggins M.D. Emergency Medicine [facility] EMERGENCY ROOM [address] [facility] [id number] Dept: [phone] Carley Riggins MD 06/01/24 0048 ATION REP * Aminata Farley RN - 05/31/2024 9:40 PM CST Pt is coming in with a sickle cell crisis. Pt was unable to picker feeder her medication d/t pharmacy needing to order it. Tylenol last at 1700 Ibuprofen last at 2100 Triage Assessment (Adult) Row Name 05/31/240 Triage Assessment Airway WDL WDL Respiratory WDL Respiratory WDL WDL Skin Circulation/Temperature WDL Skin Circulation/Temperature WDL WDL Cardiac WDL Cardiac WDL WDL Peripheral/Neurovascular WDL Peripheral Neurovascular WDL WDL Cognitive/Neuro/Behavioral WDL Cognitive/Neuro/Behavioral WDL WDL ATION REP documented in this encounter Plan of Treatment Upcoming Encounters Date Type Department Care Team (Late st Contact Info) Description 07/10/2024 11:30 AM CDT Oncology Visit [facility] [address] [place] [address] Case Samuel MD [address] [place] [address] 484, [address] [place], [place] [id number] documented as of this encounter Goals Goal Patient Goal Type Associated Problems Recent Progress Patient-Stated? Author Pain Management General On track( 025 12:40 PM EDUCATION REP) Yes Juhi Benson, RN Note: Goal [...] AND PLATELET MORPHOLOGY STAT 05/31/2024 10:21 PM EDUCATION REP CBC WITH PLATELETS AND DIFFERENTIAL STAT 05/31/2024 10:21 PM EDUCATION REP CBC WITH PLATELETS & DIFFERENTIAL STAT 05/31/2024 10:21 PM EDUCATION REP RETICULOCYTE COUNT STAT 05/31/2024 10 :21 PM EDUCATION REP BASIC METABOLIC PANEL STAT 05/31/2024 10:21 PM EDUCATION REP documented in this encounter Results * (ABNORMAL) RBC and Platelet Morphology (05/31/2024 10:21 PM EDUCATION REP) [facility] RBC Morphology Confirmed RBC Indices 05/31/2024 10:59 PM [facility] Platelet Assessment Automated Count Confirmed. Platelet morphology is normal. Automated Count Confirmed. Platelet morphology is normal. JARET 05/31/2024 10:59 PM [facility] [place] Cells Slight(A) None Seen JARET 05/31/2024 10:59 PM [facility] Elliptocytes Slight(A) None Seen JARET 05/31/2024 10:59 PM [facility] [place] Bodies Present(A) None Seen JARET 05/31/2024 10:59 PM [facility] Polychromasia Slight(A) None Seen JARET 05/31/2024 10:59 PM [facility] Sickle Cells Moderate(A) None Seen JARET 05/31/2024 10:59 PM [facility] Target Cells Slight(A) None Seen JARET 05/31/2024 10:59 PM [facility] Blood BLOOD SPECIMEN / Unknown Venipuncture / Unknown 05/31/2024 10:21 PM EDUCATION REP 05/31/2024 10:24 PM EDUCATION REP us Carley Riggins MD LAB - BLOOD ORDERABLES Liss bola Result [facility] [address] [place] [address], [facility] * (ABNORMAL) CBC with platelets and differential (05/31/2024 10:21 PM EDUCATION REP) WBC Count 15.4(H) 4.0 - 11.0 10e3/uL 05/31/2024 10:55 PM [facility] RBC Count 2.73(L) 3.80 - 5.20 10e6/uL 05/31/2024 10:55 PM [facility] Hemoglobin 8.9(L) 11.7 - 15.7 g/dL 05/31/2024 10:55 PM [facility] Hematocrit 24.8(L) 35.0 - 47.0 % 05/31/2024 10:55 PM [facility] MCV 91 78 - 100 fL 05/31/2024 10:55 PM [facility] MCH 32.6 26.5 - 33.0 pg 05/31/2024 10:55 PM [facility] MCHC 35.9 31.5 - 36.5 g/dL 05/31/2024 10:55 PM [facility] RDW 21.2(H) 10.0 - 15.0 % 05/31/2024 10:55 PM [facility] Platelet Count 399 150 - 450 10e3/uL 05/31/2024 10:55 PM [facility] % Neutrophils 56 % 05/31/2024 10:55 PM [facility] % Lymphocytes 27 % 05/31/2024 10:55 PM [facility] % Monocytes 14 % 05/31/2024 10:55 PM [facility] % Eosinophils 1 % 05/31/2024 10:55 PM [facility] % Basophils 1 % 05/31/2024 10:55 PM [facility] % Immature Granulocytes 1 % 05/31/2024 10:55 PM [facility] NRBCs per 100 WBC 2(H) <1 /100 025 10:55 PM [facility] Absolute Neutrophils 8.7(H) 1.6 - 8.3 10e3/uL 05/31/2024 10:55 PM [facility] Absolute Lymphocytes 4.2 0.8 - 5.3 10e3/uL 05/31/2024 10:55 PM [facility] Absolute Monocytes 2.2(H) 0.0 - 1.3 10e3/uL 05/31/2024 10:55 PM [facility] Absolute Eosinophils 0.2 0.0 - 0.7 10e3/uL 05/31/2024 10:55 PM [facility] Absolute Basophils 0.1 0.0 - 0.2 10e3/uL 05/31/2024 10:55 PM [facility] Absolute Immature Granulocytes 0.1 <=0.4 10e3/uL 05/31/2024 10:55 PM [facility] Absolute NRBCs 0.3 10e3/uL 05/31/2024 10:55 PM [facility] Blood BLOOD SPECIMEN / Unknown Venipuncture / Unknown 05/31/2024 10:21 PM EDUCATION REP 05/31/2024 10:24 PM [facility] us Carley Riggins MD LAB - BLOOD ORDERABLES Liss l Result [facility] [address] [place] [address], [facility] * (ABNORMAL) Basic metabolic panel (05/31/2024 10:21 PM EDUCATION REP) Sodium 133(L) 135 - 145 mmol/L 05/31/2024 10:46 PM [facility] Potassium 4.1 3.4 - 5.3 mmol/L 05/31/2024 10:46 PM [facility] Chloride 102 98 - 107 mmol/L 05/31/2024 10:46 PM [facility] Carbon Dioxide (CO2) 20(L) 22 - 29 mmol/L 05/31/2024 10:46 PM [facility] Anion Gap 11 7 - 15 mmol/L 05/31/2024 10:46 PM [facility] Urea Nitrogen 9.9 6.0 - 20.0 mg/dL 05/31/2024 10:46 PM [facility] Creatinine 0.70 0.51 - 0.95 mg/dL 05/31/2024 10:46 PM [facility] GFR Estimate >90 >60 mL/min/1.7 3m2 05/31/2024 10:46 PM [facility] Comment:eGFR calculated usin 2020 CKD-EPI equation. Calcium 9.0 8.8 - 10.4 mg/dL 05/31/2024 10:46 PM [facility] Glucose 97 70 - 99 mg/dL 05/31/2024 10:46 PM [facility] Blood BLOOD SPECIMEN / Unknown Venipuncture / Unknown 05/31/2024 10:21 PM EDUCATION REP 05/31/2024 10:24 PM [facility] Carley Riggins MD LAB - BLOOD ORDERABLES Liss l Result Performing Organization Address [facility]/ZIP Co de Phone Number [facility] [address] [place] [address], [facility] * (ABNORMAL) Reticulocyte count (05/31/2024 10:21 PM [facility]) [facility] % Reticulocyte 22.7(H) 0.5 - 2.0 % 05/31/2024 10:45 PM [facility] Absolute Reticulocyte 0.631(H) 0.025 - 0.095 10e6/uL 05/31/2024 10:45 PM [facility] Blood BLOOD SPECIMEN / Unknown Venipuncture / Unknown 05/31/2024 10:21 PM EDUCATION REP 05/31/2024 10:24 PM EDUCATION REP Carley Riggins MD LAB - BLOOD ORDERABLES Liss l Result [facility] [address] [facility], [facility] documented in this encounter [...] For 1 dose $Given 05/31/2024 10:50 PM EDUCATION REP 25 mg heparin lock flush 100 unit/mL injection 100 Units 100 Units, Intracatheter, ONCE, On Citlali 06/01/24 at 0030, For 1 dose $Given 06/01/2024 12:39 AM EDUCATION REP 100 Units HYDROmorphone (DILAUDID) injection 2 mg 2 mg, Intravenous, EVERY 1 HOUR PRN, severe pain, Starting on Wed05/31/24 at 2143, For 3 doses $Given 06/01/2024 12:36 AM EDUCATION REP 2 mg $Given 05/31/2024 11:42 PM EDUCATION REP 2 mg $Given 05/31/2024 10:28 PM EDUCATION REP 2 mg lactated ringers infusion at 500 mL/hr, Intravenous, CONTINUOUS, Starting on Wed05/31/24 at 2200, Until Wed05/31/24 at 2359 $New Bag 05/31/2024 10:22 PM EDUCATION REP 500 mL/hr ondansetron (ZOFRAN) injection 8 mg 8 mg, Intravenous, ONCE, Administer over 2-5 Minutes, On Wed05/31/24 at 2200, For 1 dose $Given 05/31/2024 10:27 PM EDUCATION REP 8 mg documented in this encounter Active and Recently Administered Medications Times are shown in EDUCATION REP. Scheduled Medication Order 05/30/2024 05/31/2024 06/01/2024 diphenhydrAMINE [...] SOFIA) documented in this encounter Care Teams Shipboard Intelligence Analyst Relationship Specialty Start Date End Date No Ref-Primary, Physician PCP - General 03/15/24 06/17/24 Mor Ramsey Medical Student 04/03/24 Case Samuel MD [address] [place] [address] 484, [address] [place] [address] Assigned Pediatric Specialist Provider 05/18/24 Juhi Benson, SOFIA Specialty Feed Inspection Supervisor Hematology & Oncology 05/29/24 documented as of this encounter
--- OUTSIDE RECORDS SUMMARY | 2024-06-30 23:55 | XMS_ITS | Encounter Summary ---
Author Organization [facility] Address [address] [place] [address]. 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 Author Pain Management General On track( 025 12:40 PM STATION DETECTIVE) Yes Juhi Benson, RN Note: Goal Statement: [...] on filedocumented in this encounter Care Teams Student Life Dean Relationship Specialty Start Date End Date No Ref-Primary, Physician PCP - General 03/15/24 06/17/24 Mor Ramsey Medical Student 04/03/24 Case Samuel MD [address] [place] [address] 484, [address] [place] [address] Assigned Pediatric Specialist Provider 05/18/24 Juhi Benson, RN Specialty Correctional Therapy Director Hematology & Oncology 05/29/24 documented as of this encounter
--- OUTSIDE RECORDS SUMMARY | 2024-06-30 23:55 | XMS_ITS | Encounter Summary ---
Author Organization [facility] Address [address] [place] [address]. [place] [address] Care Team Providers Care Drawing In Machine Tender Name Role Phone No Ref-Primary, Physician Primary Care Provider Mor Ramsey Unavailable Unavailable Case Samuel MD Unavailable [phone] Juhi Benson RN Unavailable Unavailable Reason for Visit * Reason Comments Sickle Cell Pain Crisis Encounter Details Date Type Department Care Team (Late st Contact Info) Description 05/28/2024 11:56 PM RETAIL CASHIER - 05/29/2024 3:54 AM RETAIL CASHIER Emergency [facility] [place] [address] Lenin Smith MD [address] [place] [phone] Sickle cell disease with crisis (H) Discharge [...] on file Legal Sex Female 8:25 AM RETAIL CASHIER Gender Identity Not on file Sexual Orientation Not on file documented as of this encounter Last Filed Vital Signs Vital Sign Reading Time Taken Comments Blood Pressure 123/66 05/29/2024 3:15 AM RETAIL CASHIER Pulse 87 05/29/2024 3:15 AM RETAIL CASHIER Temperature 36.6 C (97.9 F) 05/29/2024 12:01 AM RETAIL CASHIER Respiratory Rate 18 05/29/2024 12:01 AM RETAIL CASHIER Oxygen Saturation 93% 05/29/2024 3:15 AM RETAIL CASHIER Inhaled Oxygen Concentration - - Weight 51.7 kg (114 lb) 05/29/2024 12:01 AM RETAIL CASHIER Height 154.9 cm (5' 1) 05/29/2024 12:01 AM RETAIL CASHIER Body Mass Index 21.54 05/29/2024 12:01 AM RETAIL CASHIER documented in this encounter Discharge Instructions * Attachments The following attachments cannot be sent through Care Everywhere. * Sickle Cell Crisis (Kittitian) documented in this encounter Medications at Time [...] time. Patient comfortable and agrees with plan. [place] CASHIER * Lenin Smith MD - 05/29/2024 12:17 [...] go home. Has an appointment with her parts identifier today. Willfollow-up then. No indication for transfusion [...] with other provider:Did you involve another provider (protection consultant, , pharmacy, etc.)?: No Discharge. No [...] was obtained from: Patient Use of Sales Support Representative: N/A Gianna Hernández is a 29 year [...] daughters second birthdayand they walked [facility] the [facility], patient believes she might [...] home in stable condition. 05/25 Admission to [facility] for bilateral port placements with apheresis port on right and smart port on left. 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 Recently moved to [place] from [place], [place]. She is 1 of 9 [...] Connections: Socially Integrated (03/28/2024) [facility] Social Connections Do you often feel lonely [...] my direction. Lenin Smith M.D. Emergency Medicine [facility] EMERGENCY ROOM [facility] [facility] [id number] Dept: [phone] Lenin Smith MD 05/29/24 0412 [place] CASHIER * Moy Stewart RN - 05/29/2024 12:02 [...] WDL WDL Cognitive/Neuro/Behavioral WDL Cognitive/Neuro/Behavioral WDL WDL [place] CASHIER documented in this encounter Plan of Treatment Upcoming Encounters Date Type Department Care Team (Late st Contact Info) Description 07/10/2024 11:30 AM CDT Oncology Visit [facility] [address] [place] [address] Case Samuel MD [address] [place] [address] 484, [address] [place] [address] documented as of this encounter Goals Goal Patient Goal Type Associated Problems Recent Progress Patient-Stated? Author Pain Management General On track( 025 12:40 PM RETAIL CASHIER) Yes Juhi Benson, SOFIA Note: Goal Statement: [...] MANUAL DIFFERENTIAL STAT 05/29/2024 1 2:53 AM RETAIL CASHIER CBC WITH PLATELETS AND DIFFERENTIAL STAT 05/29/2024 12:53 AM RETAIL CASHIER CBC WITH PLATELETS & DIFFERENTIAL STAT 05/29/2024 12:53 AM RETAIL CASHIER RETICULOCYTE COUNT STAT 05/29/2024 12 :53 AM RETAIL CASHIER documented in this encounter Results * (ABNORMAL) Manual Differential (05/29/2024 12:53 AM [facility]) [facility] % Neutrophils 54 % JARET 05/29/2024 1:58 AM [facility] % Lymphocytes 34 % JARET 05/29/2024 1:58 AM [facility] % Monocytes 10 % JARET 05/29/2024 1:58 AM [facility] % Eosinophils 1 % JARET 05/29/2024 1:58 AM [facility] % Basophils 1 % JARET 05/29/2024 1:58 AM [facility] Absolute Neutrophils 8.4(H) 1.6 - 8.3 10e3/uL JARET 05/29/2024 1:58 AM [facility] Absolute Lymphocytes 5.3 0.8 - 5.3 10e3/uL JARET 05/29/2024 1:58 AM [facility] Absolute Monocytes 1.6(H) 0.0 - 1.3 10e3/uL JARET 05/29/2024 1:58 AM [facility] Absolute Eosinophils 0.2 0.0 - 0.7 10e3/uL JARET 05/29/2024 1:58 AM [facility] Absolute Basophils 0.2 0.0 - 0.2 10e3/uL JARET 05/29/2024 1:58 AM [facility] NRBCs per 100 WBC 3 % JARET 05/29/2024 1:58 AM [facility] Absolute NRBCs 0.5 10e3/uL JARET 05/29/2024 1:58 AM [facility] RBC Morphology Confirmed RBC Indices JARET 05/29/2024 1:58 AM [facility] Platelet Assessment Automated Count Confirmed. Platelet morphology is normal. Automated Count Confirmed. Platelet morphology is normal. JARET 05/29/2024 1:58 AM [facility] Polychromasia Moderate(A) None Seen JARET 05/29/2024 1:58 AM [facility] Sickle Cells Moderate(A) None Seen JARET 05/29/2024 1:58 AM [facility] Blood VENOUS LINE / Unknown Venipuncture / Unknown 05/29/2024 12:53 AM [facility] 05/29/2024 12:58 AM RETAIL CASHIER us Lenin Smiht MD LAB - BLOOD ORDERABLES Final Result Performing Organization Address City/[facility]/ZIP Co de Phone Number [facility] [address] [place] [address], [facility] * (ABNORMAL) CBC with platelets and differential (05/29/2024 12:53 AM RETAIL CASHIER) WBC Count 15.6(H) 4.0 - 11.0 10e3/uL 05/29/2024 1:58 AM [facility] RBC Count 2.09(L) 3.80 - 5.20 10e6/uL 05/29/2024 1:58 AM [facility] Hemoglobin 6.7(LL) 11.7 - 15.7 g/dL 05/29/2024 1:58 AM [facility] Hematocrit 19.2(L) 35.0 - 47.0 % 05/29/2024 1:58 AM [facility] MCV 92 78 - 100 fL 05/29/2024 1:58 AM [facility] MCH 32.1 26.5 - 33.0 pg 05/29/2024 1:58 AM [facility] MCHC 34.9 31.5 - 36.5 g/dL 05/29/2024 1:58 AM [facility] RDW 23.0(H) 10.0 - 15.0 % 05/29/2024 1:58 AM [facility] Platelet Count 405 150 - 450 10e3/uL 05/29/2024 1:58 AM [facility] Blood VENOUS LINE / Unknown Venipuncture / Unknown 05/29/2024 12:53 AM RETAIL CASHIER 05/29/2024 12:58 AM RETAIL CASHIER us Lenin Smith MD LAB - BLOOD ORDERABLES Final Result Performing Organization Address City/[facility]/ZIP Co de Phone Number [facility] [address] [place] [facility], [facility] * (ABNORMAL) Reticulocyte count (05/29/2024 12:53 AM RETAIL CASHIER) % Reticulocyte 28.6(H) 0.5 - 2.0 % 05/29/2024 1:27 AM RETAIL CASHIER [facility] Absolute Reticulocyte 0.616(H) 0.025 - 0.095 10e6/uL 05/29/2024 1:27 AM RETAIL CASHIER [facility] Blood VENOUS LINE / Unknown Venipuncture / Unknown 05/29/2024 12:53 AM RETAIL CASHIER 05/29/2024 12:58 AM RETAIL CASHIER us Lenin Smith MD LAB - BLOOD ORDERABLES Final Result [facility] [address] [address], [facility] documented in this encounter [...] For 1 dose $Given 05/29/2024 1:26 AM RETAIL CASHIER 25 mg heparin lock flush 10 unit/mL [...] each port lumen $Given 05/29/2024 3:38 AM RETAIL CASHIER 5 mLs HYDROmorphone (DILAUDID) injection 2 mg 2 mg, Intravenous, EVERY 1 HOUR PRN, severe pain, moderate pain, Starting on Wed05/29/24 at 0010, For 3 doses $Given 05/29/2024 3:37 AM RETAIL CASHIER 2 mg $Given 05/29/2024 2:37 AM RETAIL CASHIER 2 mg $Given 05/29/2024 1:19 AM RETAIL CASHIER 2 mg lactated ringers BOLUS 1,000 mL Intravenous, 1,000 mL, ONCE, at 1,000 mL/hr, Administer over 1 Hours, On Wed05/29/24 at 0030, For 1 dose $New Bag 05/29/2024 1:01 AM RETAIL CASHIER 1,000 mLs 1000 mL/hr sodium chloride (PF) 0.9% PF flush 10-20 mL 10-20 mL, Intracatheter, EVERY 1 MIN PRN, line flush, post meds or blood draw, to flush each lumen of the CVC Implanted port, Starting on Wed05/29/24 at 0008, 10 mL per port lumen post IV meds; 20 mL per port lumen post post blood draw. $Given 05/29/2024 3:37 AM RETAIL CASHIER 10 mLs sodium chloride (PF) 0.9% PF [...] Recently Administered Medications Times are shown in RETAIL CASHIER. Scheduled Medication Order 05/27/2024 05/28/2024 05/29/2024 diphenhydrAMINE [...] lumen documented in this encounter Care Teams Drawing In Machine Tender Relationship Specialty Start Date End Date No Ref-Primary, Physician PCP - General 03/15/24 06/17/24 Mor Ramsey Medical Student 04/03/24 Case Samuel MD [address] [place] [address] 484, [address] [place], [place] [id number] Assigned Pediatric Specialist Provider 05/18/24 Juhi Benson, RN Specialty Vehicle Operator Hematology & Oncology 05/29/24 documented as of this encounter
--- OUTSIDE RECORDS SUMMARY | 2024-06-30 23:55 | XMS_ITS | Encounter Summary ---
Author Organization [facility] Address [address] [place] [id number] Care Team Providers Care Corporate Director Of Pharmacy Name Role Phone No Ref-Primary, Physician Primary Care Provider Mor Ramsey Unavailable Unavailable Case Samuel MD Unavailable [phone] Juhi Benson RN Unavailable Unavailable Reason for Visit * Reason Comments Blood Transfusion 1 unit blood Infusion Fluids and pain medi cations Encounter Details Date Type Department Care Team (Late st Contact Info) Description 05/30/2024 8:00 AM METAL ALLOY SCIENTIST Infusion Therapy Visit [facility] Advanced Treatment [facility] [address] [place] [address] Case Samuel MD [address] [place] [address], [address] [place], [place] [id number] 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); [...] file Legal Sex Female 8:25 AM METAL ALLOY SCIENTIST Gender Identity Not on file Sexual Orientation Not on file documented as of this encounter Last Filed Vital Signs Vital Sign Reading Time Taken Comments Blood Pressure 109/72 05/30/2024 11:15 AM METAL ALLOY SCIENTIST Pulse 77 05/30/2024 11:15 AM METAL ALLOY SCIENTIST Temperature 36.5 C (97.7 F) 05/30/2024 10:21 AM METAL ALLOY SCIENTIST Respiratory Rate 16 05/30/2024 10:21 AM METAL ALLOY SCIENTIST Oxygen Saturation 95% 05/30/2024 10:21 AM METAL ALLOY SCIENTIST Inhaled Oxygen Concentration - - Weight - - Height - - Body Mass Index - - documented in this encounter Patient Instructions * Patient Instructions* Arlene Moses RN - 05/30/2024 8:00 AM METAL ALLOY SCIENTIST Dear Gianna Hernández Thank you for choosing [facility] ([facility]) for your transfusion. The following information is a summary of our appointment as well as important reminders. If you have any questions on your upcoming Specialty Infusion appointments, please call scheduling at [phone]. It was a pleasure taking care of you today. Sincerely, [facility] [address] [place] [id number] L ALLOY SCIENTIST * Attachments The following attachments cannot be sent through Care Everywhere. * Blood Transfusions: General Info (Guyanese) documented in this encounter Progress Notes * Arlene Moses RN - 05/30/2024 8:00 AM CST Blood Product Transfusion Nursing Note: Gianna Hernández presents today to [facility] for a blood transfusion. During today's [facility] appointment orders from Dr Samuel were completed. Progress note: ID verified by name and . Assessment completed. Vitals were stable throughout time in [facility]. Verbal education given to patient/accounts payable representative regarding transfusion and possible side effects. Patient/accounts payable representative verbalized understanding. Hospice Nurse Practitioner present during visit today: Not Applicable. All [...] Discharge instructions were reviewed with patient Yes Patient/accounts payable representative verbalized understanding of discharge instructions and [...] By Arlene Moses RN Alyssa Sakhitab-Kerestes, RN L ALLOY SCIENTIST documented in this encounter Plan of Treatment Upcoming Encounters Date Type Department Care Team (Late st Contact Info) Description 07/10/2024 11:30 AM CDT Oncology Visit [facility] [address] [place] [address] Case Samuel MD [address] [place] [address], [address] [place] [address] documented as of this encounter Goals Goal Patient Goal Type Associated Problems Recent Progress Patient-Stated? 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) History of transfusion PREPARE RED BLOOD CELLS (UNIT) Routine 05/29/2024 5:12 PM METAL ALLOY SCIENTIST documented in this encounter Results * Transfuse red blood cells (unit), Sickle Cell (Hgb S) Negative (05/30/2024 10:24 AM METAL ALLOY SCIENTIST) Case Samuel MD BLOOD TRANSFUSION ORDERAB LES Final Result * Transfuse red blood cells (unit), 1 Units, Sickle Cell (Hgb S) Negative (05/30/2024 10:24 AM METAL ALLOY SCIENTIST) Case Samuel MD BLOOD TRANSFUSION ORDERAB LES Final Result * Prepare red blood cells (unit) (05/29/2024 5:12 PM METAL ALLOY SCIENTIST) Blood Component Type Red Blood Cells [facility] BLOOD BANK Product Code [id number] [facility] BLOO D BANK Unit Status Transfused [facility] BLOO D BANK Unit Number [id number] UU B LOOD BANK CROSSMATCH COMPATIBLE UU BLOOD BANK CODING SYSTEM [id number] [facility] BLO OD BANK ISSUE DATE AND TIME [id number] [facility] BLOOD BANK UNIT ABO/RH A- [facility] BLOOD BANK UNIT TYPE ISBT 0600 [facility] BL OOD BANK 05/29/2024 5:12 PM METAL ALLOY SCIENTIST Case Samuel MD BLOOD BANK PRODUCT ORDERA BLES Final Result BLOOD BANK [address] [place] [address], [facility] documented in this encounter [...] (H),History of transfusion $Given 05/30/2024 11:18 AM METAL ALLOY SCIENTIST 5 mLs HYDROmorphone (DILAUDID) injection 2 mg 2 mg, Intravenous, EVERY 1 HOUR PRN, severe pain, moderate pain, Starting on Wed05/30/24 at 0833, For 3 dosesIndications:Sickle cell pain crisis (H) $Given 05/30/2024 10:56 AM METAL ALLOY SCIENTIST 2 mg $Given 05/30/2024 9:44 AM METAL ALLOY SCIENTIST 2 mg $Given 05/30/2024 8:39 AM METAL ALLOY SCIENTIST 2 mg lactated ringers BOLUS 1,000 mL Intravenous, 1,000 mL, ONCE, at 500 mL/hr, Administer over 2 Hours, On Wed05/30/24 at 0845, For 1 doseIndications:Sickle cell pain crisis (H) $New Bag 05/30/2024 10:24 AM METAL ALLOY SCIENTIST 500 mLs 500 mL/hr sodium chloride (PF) [...] (H),History of transfusion $Given 05/30/2024 11:18 AM METAL ALLOY SCIENTIST 20 mLs $Given 05/30/2024 10:20 AM METAL ALLOY SCIENTIST 20 mLs documented in this encounter Care Teams Corporate Director Of Pharmacy Relationship Specialty Start Date End Date No Ref-Primary, Physician PCP - General 03/15/24 06/17/24 Mor Ramsey Medical Student 04/03/24 Case Samuel MD [address] [place] [address], [address] [place] [address] Assigned Pediatric Specialist Provider 05/18/24 Juhi Benson, RN Specialty Cath Lab Technologist Hematology & Oncology 05/29/24 documented as of this encounter
--- OUTSIDE RECORDS SUMMARY | 2024-06-30 23:55 | XMS_ITS | Encounter Summary ---
Author Organization [facility] Address [address] [place] [address]. [place] [address] Care Team Providers Care Estimation Manager Name Role Phone RoxyElvirac Unavailable Unavailable Case Samuel MD Unavailable [phone] Juhi Benson RN Unavailable Unavailable Veronica Joseph MD Primary Care Provider [phone] Reason for Visit * Reason Comments Sickle Cell Pain Crisis * Auth/Cert Specialty Diagnoses / Procedures Referred By Shahid pendleton Referred To Contact EMERGENCY MEDICINE Diagnoses Acute pulmonary embolism without acute cor pulmonale, unspecified pulmonary embolism type (H) Sickle cell pain crisis (H) [facility] Emergency Department [address] [place] [address] Phone: tel: Referral ID Status Reason Start Date Expiration Date Visits Re quested Visits Authorized [id number] 1 1 Encounter Details Date Type Department Care Team (Latest Contact Info) Description 06/26/2024 1:51 PM RN SURGERY ICU - 06/29/2024 11:11 AM [facility] Hospital Encounter [facility] Emergency Department [address] [place] [phone] Jayden Adhikari MD [address] [place] [address] Esdras Markham MD [address] [place] [address] Alex Gillespie MD [address] [place] [id number] Acute pulmonary embolism without acute cor [...] on file Legal Sex Female 8:25 AM RN SURGERY ICU Gender Identity Not on file Sexual Orientation Not on file documented as of this encounter Last Filed Vital Signs Vital Sign Reading Time Taken Comments Blood Pressure 97/51 06/29/2024 9:46 AM RN SURGERY ICU Pulse 62 06/29/2024 9:46 AM RN SURGERY ICU Temperature 36.8 C (98.2 F) 06/29/2024 9:46 AM RN SURGERY ICU Respiratory Rate 18 06/29/2024 9:46 AM RN SURGERY ICU Oxygen Saturation 95% 06/29/2024 9:46 AM RN SURGERY ICU Inhaled Oxygen Concentration - - Weight - - Height - - Body Mass Index - - documented in this encounter Discharge Summaries * Rl Elias MD - 06/29/2024 10:11 AM CST [facility] Discharge Summary - Medicine & [...] negative. Hemoglobin stable through admission. - Continue SAND MILL OPERATOR hydroxyurea 1000mg BID - Continue SAND MILL OPERATOR folic acid 1mg daily - Continue [...] Hematology (whichever comes first) #Anxiety - Continue SAND MILL OPERATOR fluoxetine 10 mg daily Consultations This Hospital Stay PHARMACY IP CONSULT HEMATOLOGY ADULT IP CONSULT CARE MANAGEMENT / SOCIAL WORK IP CONSULT PHARMACY LIAISON FOR MEDICATION COVERAGE CONSULT PHARMACY LIAISON FOR MEDICATION COVERAGE CONSULT SOCIAL WORK IP CONSULT PHARMACY LIAISON FOR MEDICATION COVERAGE CONSULT Code Status Full Code The patient was discussed with Dr. Gillespie. MD Ricardo LANGLEY [address] [place] [address] EMERGENCY DEPARTMENT [address] [facility] [id number] Physical Exam Vital Signs: Temp: 98.2 ??F [...] MD Echocardiogram Complete Value LVEF 55-60% Narrative [id number]^BRITTANEY^JERMAINE [facility],[place] [facility] [address] [place] [id number] Name: LEW HERNÁNDEZ : 1995 Study Date: 06/27/2024 01:58 PM Age: 29 yrs Gender: Female Patient Location: [facility] Reason For Study: Pulmonary Emboli Ordering Physician: [...] (H) naloxone (NARCAN) 4 MG/0.1ML nasal spray [place] 1 spray (4 mg) into one nostril [...] Alex Gillespie MD at 06/29/2024 12:30 PM RN SURGERY ICU SURGERY ICU SURGERY ICU Associated attestation - Alex Gillespie MD - 06/29/2024 12:30 PM RN SURGERY ICU Physician Attestation I saw and evaluated this [...] 05/01/2024 naloxone (NARCAN) 4 MG/0.1ML nasal spray [place] 1 spray (4 mg) into one nostril [...] with POC. Notify primary team with changes. SURGERY ICU * Rl Elias MD - 06/28/2024 10:47 AM CST [facility] Progress Note - Medicine Service, [facility] TEAM 1 Date of Admission: 06/26/2024 Assessment [...] coverage, has 30 day free trial through [facility] #Sickle cell acute pain crisis #Sickle [...] senna PRN for supportive measures - Continue SAND MILL OPERATOR hydroxyurea 1000mg BID - Continue SAND MILL OPERATOR folic acid 1mg daily - Monitoring [...] melatonin 3 mg PRN #Anxiety - Continue SAND MILL OPERATOR fluoxetine 10 mg daily - Benadryl PRN [...] Gillespie . RL ELIAS MD Medicine Service, [facility] TEAM 1 [facility] Securely message with [employer] (more info) Text page via [facility] Paging/Directory See signed in provider for [...] Echocardiogram Complete Result Value LVEF 55-60% Narrative [id number]^BRITTANEY^JERMAINE [facility] Echocardiography Laboratory [address] [place] [address] Name: LEW HERNÁNDEZ : 1995 Study Date: 06/27/2024 01:58 PM Age: 29 yrs Gender: Female Patient Location: [facility] Reason For Study: Pulmonary Emboli Ordering Physician: [...] SALVADOR PEREA MD on 06/27/2024 02:51 PM Cosigned by Alex Gillespie MD at 06/28/2024 12:23 PM RN SURGERY ICU SURGERY ICU SURGERY ICU Associated attestation - Alex Gillespie MD - 06/28/2024 12:23 PM RN SURGERY ICU Physician Attestation I saw this patient with [...] status and report changes to treatment team. SURGERY ICU * Rl Elias MD - 06/27/2024 11:41 AM CST [facility] Progress Note - Medicine Service, [facility] TEAM 1 Date of Admission: 06/26/2024 Assessment [...] senna PRN for supportive measures - Continue SAND MILL OPERATOR hydroxyurea 1000mg BID - Continue SAND MILL OPERATOR folic acid 1mg daily - Monitoring CBC w/diff, LDH, reticulocyte count, and LDH daily - Type & screened - Continue topical diclofenac, lidocaine, icy hot PRN #Leukocytosis #Insomnia - continue melatonin 3 mg PRN #Anxiety - Continue SAND MILL OPERATOR fluoxetine 10 mg daily - Benadryl PRN [...] Gillespie . RL ELIAS MD Medicine Service, [facility] TEAM [address] [place] [address] Securely message with [employer] (more info) Text page via [facility] Paging/Directory See signed in provider for [...] Alex Gillespie MD at 06/27/2024 2:25 PM RN SURGERY ICU SURGERY ICU SURGERY ICU Associated attestation - Alex Gillespie MD - 06/27/2024 2:25 PM RN SURGERY ICU Physician Attestation I saw this patient with [...] Quispe MD - 06/26/2024 5:21 PM CST [facility] History and Physical - Medicine Service, [facility] TEAM Date of Admission: 06/26/2024 Assessment & [...] 10 mg qdaily at home. - Continue SAND MILL OPERATOR fluoxetine - Ordered hydroxyzine 25-50 mg q6h PRN - Advised patient that there are resources available if she would like to talk more about her anxiety (Behavioral Health, Roof Technician, etc). #Insomnia - Ordered melatonin 3 mg [...] Markham . Jermaine Quispe MD Medicine Service, [facility] Securely message with Referly info) Text page via [facility] Paging/Directory See signed in provider for 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, had port-a-cath in [facility] Functional asplenia Gallstones Hb-SS disease [...] nasal spray Self, Other No No Sig: [place] 1 spray (4 mg) into one nostril [...] LOCATION: [facility] DATE: 06/25/2024 INDICATION: Chest pain, SSC. [...] Esdras Markham MD at 06/26/2024 11:25 PM RN SURGERY ICU SURGERY ICU SURGERY ICU Associated attestation - Esdras Markham MD - 06/26/2024 11:25 PM RN SURGERY ICU Physician Attestation I saw this patient with [...] Communication Assessment Patient's communication style: spoken language (Maori or Bilingual) Cognitive Cognitive/Neuro/Behavioral: WDL Living Environment: [...] Dependency Status:not discussed Values/Beliefs: Spiritual, Cultural Beliefs, Buddhism Practices, Values that affect care: no Discussed [...] Care management signing off. Sandy Bertrand RN, [facility] Inpatient Care Management - FLOAT SURGERY ICU * Bernadette Boggs - 06/29/2024 8:55 AM CSTAssociated Order(s): PHARMACY LIAISON FOR MEDICATION COVERAGE CONSULT; PHARMACY LIAISON FOR MEDICATION COVERAGE CONSULT Summary: Rx coverage for Eliquis Discharge Pharmacy Test Claim Patient's commercial [place] plan covers Eliquis with an expected monthly copay of $0. Test Claim Copay Eliquis 0.00 Bernadette Boggs [facility] Pharmacy Liaison (A - L) Available on [employer] Disclaimer: Pharmacy test claims are extimates and may not reflect final costs. Suggested alternatives aim to be cost-effective but may not be therapeutically equivalent as this consult is informational and does not constitute medical advice. Clinical decisions should be made by qualified healthcare providers. SURGERY ICU SURGERY ICU SURGERY ICU SURGERY ICU * Bernadette Boggs - 06/27/2024 3:13 PM CSTAssociated Order(s): PHARMACY LIAISON FOR MEDICATION COVERAGE CONSULT Summary: Rx Coverage for Xarelto Discharge Pharmacy Test Claim Patient's commercial [place] plan covers xarelto with an expected monthly copay of $0. Test Claim Copay Xarelto 0.00 Bernadette Boggs [facility] Pharmacy Liaison (A - L) Available on [employer] Disclaimer: Pharmacy test claims are extimates and may not reflect final costs. Suggested alternatives aim to be cost-effective but may not be therapeutically equivalent as this consult is informational and does not constitute medical advice. Clinical decisions should be made by qualified healthcare providers. SURGERY ICU SURGERY ICU * Carmen Aviles PA-C - 06/27/2024 9:03 AM CSTAssociated Order(s): HEMATOLOGY ADULT IP CONSULT Images from the original note were not included. Hematology Consult Note Date of Service: 06/27/2024 Patient: Lew Hernández Admission Date: 06/26/2024 Hospital Day # Hospital Day: 2 Primary Outpatient Recreation Technician: Dr. Evy Samuel Reason for Consult: pt [...] documentation time. 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 Recently moved to [place] from [place], [place]. She is 1 of 9 [...] Socially Integrated (03/28/2024) [facility] Do you often feel [...] Quispe MD lactated ringers infusion Intravenous Continuous Rl Elias MD Lidocaine (LIDOCARE) 4 % Patch [...] 11 naloxone (NARCAN) 4 MG/0.1ML nasal spray [place] 1 spray (4 mg) into one nostril [...] Octavio Rivera MD at 06/27/2024 4:18 PM RN SURGERY ICU SURGERY ICU SURGERY ICU Associated attestation - Octavio Rivera MD - 06/27/2024 4:18 PM RN SURGERY ICU Physician Attestation I saw and evaluated Lew Hernández as part of a shared IN SHOP SERVICE TECHNICIAN/PA visit. I personally reviewed the vital signs, [...] indwelling. We will coordinate follow-up with outpatient petroleum sampler. Counseling and/or coordination of care performed by me: Rounds 45 MINUTES SPENT BY ME on the date of service doing chart review, history, exam, documentation & further activities per the note. Octavio Rivera MD Date of Service (when I saw the patient): 06/27/24 This note was completed in part using dictation via the [employer] voice recognition software. Some word and grammatical [...] WDL WDL Cognitive/Neuro/Behavioral WDL Cognitive/Neuro/Behavioral WDL WDL SURGERY ICU * Tammi Dave RN - 06/26/2024 1:51 PM CST [facility] Expected date: Expected time: Means of arrival: Comments: HWY appropriate SURGERY ICU * Jayden Adhikari MD - 06/26/2024 1:45 PM CST Images from the original note were not included. [facility] ([facility]) 06/26/24 ED PROVIDER NOTE History Chief Complaint 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, had [facility]cath in [facility] Functional asplenia Gallstones Hb-SS disease [...] Antibody Screen Negative Negative SPECIMEN EXPIRATION DATE [id number] CBC with platelets differential Status: Abnormal Narrative The following orders were created for panel order CBC with platelets differential. Procedure Abnormality Status --------- ------ CBC with platelets and d...[[id number]] Abnormal Final result Please view results for these tests on the individual orders. ABO/Rh type and screen Status: None Narrative The following orders were created for panel order ABO/Rh type and screen. Procedure Abnormality Status --------- ------ Adult Type and Screen[[id number]] Final result Please view results for these tests on the individual orders. Results for orders placed or performed during the hospital encounter of 06/25/24 XR Chest 2 Views Status: None Narrative EXAM: XR CHEST 2 VIEWS LOCATION: [facility] DATE: 06/25/2024 INDICATION: Chest pain, SSC. [...] Negative Ketones Urine Negative Negative mg/dL Specific [place] Urine 1.009 1.003 - 1.035 Blood Urine [...] Rate 87 BPM Atrial Rate 87 BPM AK Interval 162 ms QRS Duration 86 ms QT 362 ms QTc 435 ms P D[place] 54 degrees R AXIS 84 degrees T Dupo 70 degrees Interpretation ECG Sinus rhythm Normal ECG Unconfirmed report - interpretation of this ECG is computer generated - see medical record for final interpretation Confirmed by - EMERGENCY ROOM, PHYSICIAN ([id number]), film editor supervisor Nivia Willson ([id number]) on 06/25/2024 10:56:42 PM CBC with platelets differential Status: Abnormal Narrative The following orders were created for panel order CBC with platelets differential. Procedure Abnormality Status --------- ------ CBC with platelets and d...[[id number]] Abnormal Final result Please view results for [...] 55 mL (55 mLs Intravenous $Given 06/26/24 1413) sodium chloride (PF) 0.9% PF flush 82 mL (82 mLs Intravenous $Given 06/26/24 2693) heparin ANTICOAGULANT Loading dose for HIGH INTENSITY [...] POS Antibody Screen Negative SPECIMEN EXPIRATION DATE [id number] BLOOD CULTURE BLOOD CULTURE ABO/RH TYPE AND [...] type (H) Sickle cell pain crisis (H) [facility] EMERGENCY DEPARTMENT 06/26/2024 Jayden Adhikari MD 06/26/24 1704 SURGERY ICU documented in this encounter Miscellaneous Notes * Plan of Care - Sandy Bertrand RN - 06/29/2024 10:54 AM CST Goal Outcome Evaluation: Plan of Care Reviewed With: patient Overall Patient Progress: improvingOverall Patient Progress: improving Outcome Evaluation: Discharge home today Sandy Bertrand RN, [facility] Inpatient Care Management - FLOAT SURGERY ICU * Plan of Care - Maki Schultz [...] Pt adequate for discharge. Verbalized all instructions. SURGERY ICU * Plan of Care - Lavinia Cruz RN - 06/29/2024 7:05 AM CST RN [id number] Vitals: Afebrile. VSS on RA Neuro: A&Ox4 [...] changes in patient status. Lavinia Cruz RN SURGERY ICU * Plan of Care - Sathish Goetz [...] (36.8 ??C) (Oral) Resp 20 SpO2 98% SURGERY ICU * Plan of Care - Sathish Goetz [...] (36.8 ??C) (Oral) Resp 20 SpO2 98% SURGERY ICU * Medication Scribe - Admission Medication History - Yennifer Edwards - 06/27/2024 4:32 AM CST Medication Scribe Admission Medication History Admission medication history is complete. The information provided in this note is only as accurateas the sources available at the time of the update. Information Source(s): Patient and CareEverywhere/SureScripts via in-person Pertinent Information: per pt+CE, pt reported taking medications on SAND MILL OPERATOR medication list as directed Changes made to SAND MILL OPERATOR medication list: Added: None Deleted: None Changed: None Allergies reviewed with patient and updates made in EHR: yes Medication History Completed By: Yennifer Edwards 06/27/2024 4:32 AM SAND MILL OPERATOR Med List Medication Sig Last Dose/Taking [...] 06/26/2024 naloxone (NARCAN) 4 MG/0.1ML nasal spray [place] 1 spray (4 mg) into one nostril alternating nostrilsas needed for opioid reversal (for opiate overdose if not breathing and unconscious. have your family member watch video on how to use/read information sheet). every 2-3 minutes until assistance arrives Taking As Needed SURGERY ICU * Plan of Care - Gordo Sykes [...] Progress: no changeOverall Patient Progress: no change SURGERY ICU * Provider Notification - Gordo Sykes, RN - 06/27/2024 3:35 AM RN SURGERY ICU Jovan, I've messaged your internal communications specialist a couple of times starting at ([phone]) [...] Or what are her diet orders? Thanks. SURGERY ICU * Provider Notification - Gordo Sykes RN - 06/27/2024 1:27 AM RN SURGERY ICU Also, pt has orders for NPO. Pt stated that she thinks that this has passed and the order hasn't been updated. Previous nurse told me that pt ordered and ate dinner (before my shift). Is pt NPO? Or what are her diet orders? Thanks. SURGERY ICU * Provider Notification - Gordo Sykes RN - 06/27/2024 1:13 AM RN SURGERY ICU Hello, pt refusing a PIV. Pt only has L port that is currently running a heparin drip. Pt has orders for continuous LR at 100mL/hour, I am unable to run this at this time due to limited access. Is fedey to hold off on this? Or what would you advise? Thanks. SURGERY ICU SURGERY ICU * Plan of Care - Phuong Ng RN - 06/26/2024 11:46 PM CST Shift: [id number] VS: Blood pressure 103/68, pulse 79, temperature [...] No significant changes this shift, continue POC. SURGERY ICU documented in this encounter Plan of Treatment Upcoming Encounters Date Type Department Care Team (Late st Contact Info) Description 07/10/2024 11:30 AM CDT Oncology Visit [facility] [address] [place] [address] Case Samuel MD [address] [facility] [address], [address] [place] [address] Pending Results Name Type Priority Associated Diagnoses Date /Time Blood Culture Peripheral Blood Microbiology STAT 06/26/2024 6:46 PM RN SURGERY ICU Blood Culture Peripheral Blood Microbiology STAT 06/26/2024 6:46 PM RN SURGERY ICU documented as of this encounter Goals Goal Patient Goal Type Associated Problems Recent Progress Patient-Stated? Author Pain Management General On track( 025 12:40 PM RN SURGERY ICU) Yes Juhi Benson, SOFIA Note: Goal Statement: [...] Comments EXTRA TUBE STAT 06/29/2024 6:05 AM RN SURGERY ICU EXTRA PURPLE TOP TUBE STAT 06/29/2024 6:05 AM RN SURGERY ICU CBC WITH PLATELETS AND DIFFERENTIAL STAT 06/29/2024 6:05 AM RN SURGERY ICU CBC WITH PLATELETS & DIFFERENTIAL STAT 06/29/2024 6:05 AM RN SURGERY ICU COMPREHENSIVE METABOLIC PANEL STAT 06/29/2024 6:04 AM RN SURGERY ICU RBC AND PLATELET MORPHOLOGY STAT 06/28/2024 6:06 AM RN SURGERY ICU CBC WITH PLATELETS AND DIFFERENTIAL STAT 06/28/2024 6:06 AM RN SURGERY ICU LACTATE DEHYDROGENASE STAT 06/28/2024 6:06 AM RN SURGERY ICU CBC WITH PLATELETS & DIFFERENTIAL STAT 06/28/2024 6:06 AM RN SURGERY ICU RETICULOCYTE COUNT STAT 06/28/2024 6: 06 AM RN SURGERY ICU COMPREHENSIVE METABOLIC PANEL STAT 06/28/2024 6:06 AM RN SURGERY ICU BILIRUBIN DIRECT Add-On 06/28/2024 6:06 AM RN SURGERY ICU HEPARIN UNFRACTIONATED ANTI XA LEVEL STAT 06/28/2024 1:57 AM RN SURGERY ICU HEPARIN UNFRACTIONATED ANTI XA LEVEL STAT 06/27/2024 7:14 PM RN SURGERY ICU EXTRA TUBE STAT 06/27/2024 5:55 PM RN SURGERY ICU EXTRA GREEN TOP (LITHIUM HEPARIN) TUBE STAT 06/27/2024 5:55 PM RN SURGERY ICU ECHO COMPLETE Routine 06/27/2024 2:33 PM RN SURGERY ICU HEPARIN UNFRACTIONATED ANTI XA LEVEL STAT 06/27/2024 12:39 PM RN SURGERY ICU US LOWER EXTREMITY VENOUS DUPLEX BILATERAL STAT 06/27/2024 11:21 AM RN SURGERY ICU INFLUENZA A/B, RSV AND SARS-COV2 PCR STAT 06/27/2024 8:43 AM RN SURGERY ICU ROUTINE UA WITH MICROSCOPIC REFLEX TO CULTURE STAT 06/27/2024 8:12 AM RN SURGERY ICU RBC AND PLATELET MORPHOLOGY STAT 06/27/2024 5:57 AM RN SURGERY ICU CBC WITH PLATELETS AND DIFFERENTIAL Add-On 06/27/2024 5:57 AM RN SURGERY ICU TYPE AND SCREEN, ADULT Routine 5:57 AM RN SURGERY ICU CBC WITH PLATELETS & DIFFERENTIAL Add-On 06/27/2024 5:57 AM RN SURGERY ICU RETICULOCYTE COUNT Add-On 06/27/2024 5: 57 AM RN SURGERY ICU HEPATIC FUNCTION PANEL Add-On 5:57 AM RN SURGERY ICU ABO/RH TYPE AND SCREEN Add-On 5:57 AM RN SURGERY ICU BASIC METABOLIC PANEL STAT 06/27/2024 5:57 AM RN SURGERY ICU CBC WITH PLATELETS STAT 06/27/2024 5: 57 AM RN SURGERY ICU HEPARIN UNFRACTIONATED ANTI XA LEVEL STAT 06/27/2024 5:56 AM RN SURGERY ICU HEPARIN UNFRACTIONATED ANTI XA LEVEL STAT 06/26/2024 10:46 PM RN SURGERY ICU ERYTHROCYTE SEDIMENTATION RATE AUTO STAT 06/26/2024 6:46 PM RN SURGERY ICU BLOOD CULTURE STAT 06/26/2024 6:46 PM RN SURGERY ICU BLOOD CULTURE STAT 06/26/2024 6:46 PM RN SURGERY ICU EKG 12-LEAD, TRACING ONLY STAT 06/26/2024 5:[address] ICU CT CHEST PULMONARY EMBOLISM W CONTRAST STAT 06/26/2024 4:15 PM RN SURGERY ICU XR CHEST 2 VIEWS STAT 06/26/2024 3:13 PM RN SURGERY ICU CBC WITH PLATELETS AND DIFFERENTIAL STAT 06/26/2024 2:42 PM RN SURGERY ICU TYPE AND SCREEN, ADULT STAT 2:42 PM RN SURGERY ICU TROPONIN T, HIGH SENSITIVITY STAT 06/26/2024 2:42 PM RN SURGERY ICU PROCALCITONIN STAT 06/26/2024 2:42 PM RN SURGERY ICU CBC WITH PLATELETS & DIFFERENTIAL STAT 06/26/2024 2:42 PM RN SURGERY ICU HCG QUALITATIVE STAT 06/26/2024 2:42 PM RN SURGERY ICU D DIMER QUANTITATIVE STAT 06/26/2024 2:42 PM RN SURGERY ICU CRP INFLAMMATION Add-On 06/26/2024 2:42 PM RN SURGERY ICU ABO/RH TYPE AND SCREEN STAT 2:42 PM RN SURGERY ICU BASIC METABOLIC PANEL STAT 06/26/2024 2:42 PM RN SURGERY ICU documented in this encounter Results * Extra Purple Top Tube (06/29/2024 6:05 AM RN SURGERY ICU) [facility] Hold Specimen [facility] 06/29/2024 7:31 AM RN SURGERY ICU [facility] Blood ARTERIAL LINE / Unknown IVAD (Port) / Unknown 06/29/2024 6:05 AM RN SURGERY ICU 06/29/2024 6:19 AM RN SURGERY ICU us Alex Gillespie MD LAB - BLOOD ORDERABLES Final Re sult [facility] [place] [facility] [address] [facility] [address], [address] [place] [address] * (ABNORMAL) CBC with platelets and differential (06/29/2024 6:05 AM RN SURGERY ICU) [facility] WBC Count 12.3(H) 4.0 - 11.0 10e3/uL 06/29/2024 6:30 AM RN SURGERY ICU [facility] RBC Count 2.60(L) 3.80 - 5.20 10e6/uL 06/29/2024 6:30 AM RN SURGERY ICU [facility] Hemoglobin 8.5(L) 11.7 - 15.7 g/dL 06/29/2024 6:30 AM RN SURGERY ICU [facility] Hematocrit 25.5(L) 35.0 - 47.0 % 06/29/2024 6:30 AM RN SURGERY ICU [facility] MCV 98 78 - 100 fL 06/29/2024 6:30 AM RN SURGERY ICU [facility] MCH 32.7 26.5 - 33.0 pg 06/29/2024 6:30 AM RN SURGERY ICU [facility] MCHC 33.3 31.5 - 36.5 g/dL 06/29/2024 6:30 AM RN SURGERY ICU [facility] RDW 17.9(H) 10.0 - 15.0 % 06/29/2024 6:30 AM RN SURGERY ICU [facility] Platelet Count 438 150 - 450 10e3/uL 06/29/2024 6:30 AM RN SURGERY ICU [facility] % Neutrophils 62 % 06/29/2024 6:30 AM RN SURGERY ICU [facility] % Lymphocytes 25 % 06/29/2024 6:30 AM RN SURGERY ICU [facility] % Monocytes 9 % 06/29/2024 6:30 AM RN SURGERY ICU [facility] % Eosinophils 3 % 06/29/2024 6:30 AM RN SURGERY ICU [facility] % Basophils 1 % 06/29/2024 6:30 AM RN SURGERY ICU [facility] % Immature Granulocytes 0 % 06/29/2024 6:30 AM RN SURGERY ICU [facility] NRBCs per 100 WBC 1(H) <1 /100 025 6:30 AM RN SURGERY ICU [facility] Absolute Neutrophils 7.6 1.6 - 8.3 10e3/uL 06/29/2024 6:30 AM RN SURGERY ICU [facility] Absolute Lymphocytes 3.1 0.8 - 5.3 10e3/uL 06/29/2024 6:30 AM RN SURGERY ICU [facility] Absolute Monocytes 1.1 0.0 - 1.3 10e3/uL 06/29/2024 6:30 AM RN SURGERY ICU [facility] Absolute Eosinophils 0.4 0.0 - 0.7 10e3/uL 06/29/2024 6:30 AM RN SURGERY ICU [facility] Absolute Basophils 0.1 0.0 - 0.2 10e3/uL 06/29/2024 6:30 AM RN SURGERY ICU [facility] Absolute Immature Granulocytes 0.0 <=0.4 10e3/uL 06/29/2024 6:30 AM RN SURGERY ICU [facility] Absolute NRBCs 0.1 10e3/uL 06/29/2024 6:30 AM RN SURGERY ICU [facility] Blood ARTERIAL LINE / Unknown IVAD (Port) / Unknown 06/29/2024 6:05 AM RN SURGERY ICU 06/29/2024 6:17 AM RN SURGERY ICU us Rl Elias MD LAB - BLOOD ORDER SYD Final Result [facility] [address] [facility], [address] [id number] * (ABNORMAL) Comprehensive metabolic panel (06/29/2024 6:04 AM RN SURGERY ICU) Sodium 132(L) 135 - 145 mmol/L 06/29/2024 6:51 AM RN SURGERY ICU [facility] Potassium 4.6 3.4 - 5.3 mmol/L 06/29/2024 6:51 AM RN SURGERY ICU [facility] Carbon Dioxide (CO2) 21(L) 22 - 29 mmol/L 06/29/2024 6:51 AM RN SURGERY ICU [facility] Anion Gap 9 7 - 15 mmol/L 06/29/2024 6:51 AM RN SURGERY ICU [facility] Urea Nitrogen 14.3 6.0 - 20.0 mg/dL 06/29/2024 6:51 AM RN SURGERY ICU [facility] Creatinine 0.70 0.51 - 0.95 mg/dL 06/29/2024 6:51 AM RN SURGERY ICU [facility] GFR Estimate >90 >60 mL/min/1.7 3m2 06/29/2024 6:51 AM RN SURGERY ICU [facility] Comment:eGFR calculated usin 2020 CKD-EPI equation. Calcium 8.9 8.8 - 10.4 mg/dL 06/29/2024 6:51 AM RN SURGERY ICU [facility] Chloride 102 98 - 107 mmol/L 06/29/2024 6:51 AM RN SURGERY ICU [facility] Glucose 98 70 - 99 mg/dL 06/29/2024 6:51 AM RN SURGERY ICU [facility] Alkaline Phosphatase 106 40 - 150 U/L 06/29/2024 6:51 AM RN SURGERY ICU [facility] AST 49(H) 0 - 45 U/L 06/29/2024 6:51 AM RN SURGERY ICU [facility] ALT 44 0 - 50 U/L 06/29/2024 6:51 AM RN SURGERY ICU [facility] Protein Total 7.5 6.4 - 8.3 g/dL 06/29/2024 6:51 AM RN SURGERY ICU [facility] Albumin 4.1 3.5 - 5.2 g/dL 06/29/2024 6:51 AM RN SURGERY ICU [facility] Bilirubin Total 1.6(H) <=1.2 mg/dL 06/29/2024 6:51 AM RN SURGERY ICU [facility] Blood ARTERIAL LINE / Unknown IVAD (Port) / Unknown 06/29/2024 6:04 AM RN SURGERY ICU 06/29/2024 6:19 AM RN SURGERY ICU Rl Elias MD LAB - BLOOD ORDER SYD Final Result [facility] [address] [facility], [address] * (ABNORMAL) Bilirubin direct (06/28/2024 6:06 AM RN SURGERY ICU) Bilirubin Direct 0.53(H) 0.00 - 0.30 mg/dL 06/28/2024 9:50 AM RN SURGERY ICU [facility] Blood VENOUS LINE / Unknown Venipuncture / Unknown 06/28/2024 6:06 AM RN SURGERY ICU 06/28/2024 6:22 AM RN SURGERY ICU Rl Elias MD LAB - BLOOD ORDER SYD Final Result [facility] [address] [facility], Room [address] * (ABNORMAL) RBC and Platelet Morphology (06/28/2024 6:06 AM RN SURGERY ICU) RBC Morphology Confirmed RBC Indices 06/28/2024 7:15 AM RN SURGERY ICU [facility] Platelet Assessment Automated Count Confirmed. Platelet morphology is normal. Automated Count Confirmed. Platelet morphology is normal. 06/28/2024 7:15 AM RN SURGERY ICU [facility] Sickle Cells Slight(A) None Seen 06/28/2024 7:15 AM RN SURGERY ICU [facility] Target Cells Moderate(A) None Seen 06/28/2024 7:15 AM RN SURGERY ICU [facility] Blood VENOUS LINE / Unknown Venipuncture / Unknown 06/28/2024 6:06 AM RN SURGERY ICU 06/28/2024 6:22 AM RN SURGERY ICU Rl Elias MD LAB - BLOOD ORDER SYD Final Result [facility] [address] [facility], [address] [id number] * (ABNORMAL) CBC with platelets and differential (06/28/2024 6:06 AM RN SURGERY ICU) WBC Count 15.3(H) 4.0 - 11.0 10e3/uL 06/28/2024 7:14 AM RN SURGERY ICU [facility] RBC Count 2.49(L) 3.80 - 5.20 10e6/uL 06/28/2024 7:14 AM RN SURGERY ICU [facility] Hemoglobin 8.2(L) 11.7 - 15.7 g/dL 06/28/2024 7:14 AM RN SURGERY ICU [facility] Hematocrit 24.0(L) 35.0 - 47.0 % 06/28/2024 7:14 AM RN SURGERY ICU [facility] MCV 96 78 - 100 fL 06/28/2024 7:14 AM RN SURGERY ICU [facility] MCH 32.9 26.5 - 33.0 pg 06/28/2024 7:14 AM RN SURGERY ICU [facility] MCHC 34.2 31.5 - 36.5 g/dL 06/28/2024 7:14 AM RN SURGERY ICU [facility] RDW 18.3(H) 10.0 - 15.0 % 06/28/2024 7:14 AM RN SURGERY ICU [facility] Platelet Count 401 150 - 450 10e3/uL 06/28/2024 7:14 AM RN SURGERY ICU [facility] % Neutrophils 46 % 06/28/2024 7:14 AM RN SURGERY ICU [facility] % Lymphocytes 40 % 06/28/2024 7:14 AM RN SURGERY ICU [facility] % Monocytes 10 % 06/28/2024 7:14 AM RN SURGERY ICU [facility] % Eosinophils 4 % 06/28/2024 7:14 AM RN SURGERY ICU [facility] % Basophils 1 % 06/28/2024 7:14 AM RN SURGERY ICU [facility] % Immature Granulocytes 0 % 06/28/2024 7:14 AM RN SURGERY ICU [facility] NRBCs per 100 WBC 1(H) <1 /100 025 7:14 AM RN SURGERY ICU [facility] Absolute Neutrophils 7.0 1.6 - 8.3 10e3/uL 06/28/2024 7:14 AM RN SURGERY ICU [facility] Absolute Lymphocytes 6.0(H) 0.8 - 5.3 10e3/uL 06/28/2024 7:14 AM RN SURGERY ICU [facility] Absolute Monocytes 1.5(H) 0.0 - 1.3 10e3/uL 06/28/2024 7:14 AM RN SURGERY ICU [facility] Absolute Eosinophils 0.5 0.0 - 0.7 10e3/uL 06/28/2024 7:14 AM RN SURGERY ICU [facility] Absolute Basophils 0.2 0.0 - 0.2 10e3/uL 06/28/2024 7:14 AM RN SURGERY ICU [facility] Absolute Immature Granulocytes 0.1 <=0.4 10e3/uL 06/28/2024 7:14 AM RN SURGERY ICU [facility] Absolute NRBCs 0.1 10e3/uL 06/28/2024 7:14 AM RN SURGERY ICU [facility] Blood VENOUS LINE / Unknown Venipuncture / Unknown 06/28/2024 6:06 AM RN SURGERY ICU 06/28/2024 6:22 AM RN SURGERY ICU us Rl Elias MD LAB - BLOOD ORDER SYD Final Result [facility] [address] [facility], [address] [place] [address], [facility] * (ABNORMAL) Reticulocyte count (06/28/2024 6:06 AM RN SURGERY ICU) % Reticulocyte 12.7(H) 0.5 - 2.0 % 06/28/2024 6:57 AM RN SURGERY ICU [facility] Comment:x2 dilution Absolute Reticulocyte 0.316(H) 0.025 - 0.095 10e6/uL 06/28/2024 6:57 AM RN SURGERY ICU [facility] Comment:x2 dilution Blood VENOUS LINE / Unknown Venipuncture / Unknown 06/28/2024 6:06 AM RN SURGERY ICU 06/28/2024 6:22 AM RN SURGERY ICU Rl Elias MD LAB - BLOOD ORDER SYD Final Result Performing Organization Address City/[facility]/ZIP Co de Phone Number U [facility]AT[facility] [address] [facility], [address] * (ABNORMAL) Lactate Dehydrogenase (06/28/2024 6:06 AM RN SURGERY ICU) Pathologist [facility] Lactate Dehydrogenase 451(H) 0 - 250 U/L 06/28/2024 6:51 AM RN SURGERY ICU [facility] Blood VENOUS LINE / Unknown Venipuncture / Unknown 06/28/2024 6:06 AM RN SURGERY ICU 06/28/2024 6:22 AM RN SURGERY ICU Rl Elias MD LAB - BLOOD ORDER SYD Final Result LAB[facility]ATORY [facility] [address] [facility], [address] * (ABNORMAL) Comprehensive metabolic panel (06/28/2024 6:06 AM RN SURGERY ICU) Pathologist [facility] Sodium 134(L) 135 - 145 mmol/L 06/28/2024 6:51 AM RN SURGERY ICU [facility] Potassium 4.6 3.4 - 5.3 mmol/L 06/28/2024 6:51 AM RN SURGERY ICU [facility] Carbon Dioxide (CO2) 22 22 - 29 mmol/L 06/28/2024 6:51 AM RN SURGERY ICU [facility] Anion Gap 7 7 - 15 mmol/L 06/28/2024 6:51 AM RN SURGERY ICU [facility] Urea Nitrogen 11.8 6.0 - 20.0 mg/dL 06/28/2024 6:51 AM RN SURGERY ICU [facility] Creatinine 0.70 0.51 - 0.95 mg/dL 06/28/2024 6:51 AM RN SURGERY ICU [facility] GFR Estimate >90 >60 mL/min/1.7 3m2 06/28/2024 6:51 AM RN SURGERY ICU [facility] Comment:eGFR calculated 2020 CKD-EPI equation. Calcium 8.9 8.8 - 10.4 mg/dL 06/28/2024 6:51 AM RN SURGERY ICU [facility] Chloride 105 98 - 107 mmol/L 06/28/2024 6:51 AM RN SURGERY ICU [facility] Glucose 88 70 - 99 mg/dL 06/28/2024 6:51 AM RN SURGERY ICU [facility] Alkaline Phosphatase 106 40 - 150 U/L 06/28/2024 6:51 AM RN SURGERY ICU [facility] AST 34 0 - 45 U/L 06/28/2024 6:51 AM RN SURGERY ICU [facility] ALT 33 0 - 50 U/L 06/28/2024 6:51 AM RN SURGERY ICU [facility] Protein Total 7.2 6.4 - 8.3 g/dL 06/28/2024 6:51 AM RN SURGERY ICU [facility] Albumin 4.0 3.5 - 5.2 g/dL 06/28/2024 6:51 AM RN SURGERY ICU [facility] Bilirubin Total 1.3(H) <=1.2 mg/dL 06/28/2024 6:51 AM RN SURGERY ICU [facility] Blood VENOUS LINE / Unknown Venipuncture / Unknown 06/28/2024 6:06 AM RN SURGERY ICU 06/28/2024 6:22 AM RN SURGERY ICU us Rl Elias MD LAB - BLOOD ORDER SYD Final Result [facility] [address] [facility], [address] [phone] * Heparin Unfractionated Anti Xa Level (06/28/2024 1:57 AM RN SURGERY ICU) [facility] Anti Xa Unfractionated Heparin 0.45 For Reference Range, See Comment IU/mL 06/28/2024 2:32 AM RN SURGERY ICU [facility] Blood VENOUS LINE / Unknown Venipuncture / Unknown 06/28/2024 1:57 AM RN SURGERY ICU 06/28/2024 2:17 AM RN SURGERY ICU Narrative [facility] - 06/28/2024 2:32 AM RN SURGERY ICU Therapeutic Range: UFH: 0.25-0.50 IU/mL for low intensity dosing, 0.30-0.70 IU/mL for high intensity dosing DVT and PE. This test is not validated for other direct factor X inhibitors (e.g. rivaroxaban, apixaban, edoxaban, betrixaban, fondaparinux) and should not be used for monitoring of other medications. Alex Gillespie MD LAB - BLOOD ORDERABLES Final Re sult [facility] [address] [facility], [address] [place] [id number] * Heparin Unfractionated Anti Xa Level (06/27/2024 7:14 PM RN SURGERY ICU) [facility] Anti Xa Unfractionated Heparin 0.39 For Reference Range, See Comment IU/mL 06/27/2024 7:58 PM RN SURGERY ICU [facility] Blood STRUCTURE OF RIGHT HAND / Unknown Venipuncture / Unknown 06/27/2024 7:14 PM RN SURGERY ICU 06/27/2024 7:21 PM RN SURGERY ICU Narrative [facility] - 06/27/2024 7:58 PM RN SURGERY ICU Therapeutic Range: UFH: 0.25-0.50 IU/mL for low intensity dosing, 0.30-0.70 IU/mL for high intensity dosing DVT and PE. This test is not validated for other direct factor X inhibitors (e.g. rivaroxaban, apixaban, edoxaban, betrixaban, fondaparinux) and should not be used for monitoring of other medications. Octavio Rivera MD LAB - BLOOD ORDERABLES Final Res ult LABORATORY [facility] [address] [facility], [address] [phone] * Extra Green Top (Emigrant Heparin) Tube (06/27/2024 5:55 PM RN SURGERY ICU) Hold Specimen JIC 06/27/2024 8:31 PM RN SURGERY ICU U [facility]ORY Blood STRUCTURE OF RIGHT WRIST REGION / Unknown Venipuncture / Unknown 06/27/2024 5:55 PM RN SURGERY ICU 06/27/2024 7:22 PM RN SURGERY ICU us Alex Gillespie MD LAB - BLOOD ORDERABLES Final Re sult LABORATORY [facility] [address] [facility], [address] [id number] * ECHO COMPLETE (06/27/2024 2:33 PM RN SURGERY ICU) Pathologist [facility] LVEF 55-60% CARDIOLOGY RESULTS Anatomical Region Laterality Modality Echocardiography 06/27/2024 1:58 PM RN SURGERY ICU Narrative 06/27/2024 2:51 PM RN SURGERY ICU [id number]^BRITTANEY^JERMAINE [facility] Echocardiography Laboratory [address] [place] [address] Name: LEW HERNÁNDEZ Shawanda : 1995 Study Date: 06/27/2024 01:58 PM Age: 29 yrs Gender: Female Patient Location: [facility] Reason For Study: Pulmonary Emboli Ordering Physician: [...] Procedure Note Salvador Perea MD - 06/27/2024 [id number]^BRITTANEY^[facility] Echocardiography Laboratory [address] [place] [id number] Name: LEW HERNÁNDEZ : 1995 Study Date: 06/27/2024 01:58 PM Age: 29 yrs Gender: Female Patient Location: [facility] Reason For Study: Pulmonary Emboli Ordering Physician: [...] Unfractionated Anti Xa Level (06/27/2024 12:39 PM RN SURGERY ICU) Anti Xa Unfractionated Heparin 0.29 For Reference Range, See Comment IU/mL 06/27/2024 1:22 PM RN SURGERY ICU [facility] Blood STRUCTURE OF LEFT HAND / Unknown Venipuncture / Unknown 06/27/2024 12:39 PM RN SURGERY ICU 06/27/2024 12:54 PM RN SURGERY ICU Narrative [facility] - 06/27/2024 1:22 PM RN SURGERY ICU Therapeutic Range: UFH: 0.25-0.50 IU/mL for low intensity dosing, 0.30-0.70 IU/mL for high intensity dosing DVT and PE. This test is not validated for other direct factor X inhibitors (e.g. rivaroxaban, apixaban, edoxaban, betrixaban, fondaparinux) and should not be used for monitoring of other medications. us Esdras Markham MD LAB - BLOOD ORDERABLES Final Res ult [facility] [address] [facility], [address] [place] [address], [facility] * US Lower Extremity Venous Duplex Bilateral (06/27/2024 11:21 AM RN SURGERY ICU) Anatomical Region Laterality Modality Vascular, Thigh, Leg Ultrasound Impressions 06/27/2024 11:45 AM RN SURGERY ICU IMPRESSION: No evidence of deep venous thrombosis in either lower extremity. I have personally reviewed the examination and initial interpretation and I agree with the findings. NINOSKA QUAN MD Narrative 06/27/2024 11:45 AM RN SURGERY ICU EXAMINATION: DOPPLER VENOUS ULTRASOUND OF BILATERAL LOWER [...] with the findings. NINOSKA QUAN MD Rl Eilas MD [facility] US ORDERABLES Final Result * Influenza A/B, RSV and SARS-CoV2 PCR (COVID-19) Nose (06/27/2024 8:43 AM RN SURGERY ICU) Influenza A PCR Negative Negative 06/27/2024 10:03 AM RN SURGERY ICU [facility] Influenza B PCR Negative Negative 06/27/2024 10:03 AM RN SURGERY ICU [facility] RSV PCR Negative Negative 06/27/2024 10:03 AM RN SURGERY ICU [facility] SARS CoV2 PCR Negative Negative 06/27/2024 10:03 AM RN SURGERY ICU [facility] Comment:NEGATIVE: SARS-CoV-2 (COVID-19) RNA not detected, presumed negative. Swab NASAL STRUCTURE / Unknown Non-blood Collection / Unknown 06/27/2024 8:43 AM RN SURGERY ICU 06/27/2024 8:59 AM RN SURGERY ICU Narrative [facility] - 06/27/2024 10:03 AM RN SURGERY ICU Testing was performed using the Xpert Xpress CoV2/Flu/RSV Assay on the [employer] GeneXpert Instrument. This test should be ordered [...] by the [facility]. These laboratories are certified under the Clinical Laboratory Improvement Amendments of 1988 (CLIA-88) as qualified to perfom high complexity laboratory testing. Rl Elias MD LAB - MICRO GENER AL ORDERABLES Final Result [facility] Inf. Diseases Diag. Lab [address] [facility], [address] [place] [phone] * (ABNORMAL) UA with Microscopic reflex to Culture (06/27/2024 8:12 AM RN SURGERY ICU) Color Urine Light Yellow Colorless, Straw, Light Yellow, Yellow 06/27/2024 8:29 AM RN SURGERY ICU [facility] Appearance Urine Clear Clear 06/28/19 8:29 AM RN SURGERY ICU [facility] Glucose Urine Negative Negative mg/dL 06/27/2024 8:29 AM RN SURGERY ICU [facility] Bilirubin Urine Negative Negative 8:29 AM RN SURGERY ICU [facility] Ketones Urine Negative Negative mg/dL 06/27/2024 8:29 AM RN SURGERY ICU [facility] Specific [place] Urine 1.011 1.003 - 1.035 06/27/2024 8:29 AM RN SURGERY ICU [facility] Blood Urine Negative Negative 06/27/2024 8:29 AM RN SURGERY ICU [facility] pH Urine 7.0 5.0 - 7.0 06/27/2024 8:29 AM RN SURGERY ICU [facility] Protein Albumin Urine Negative Negative mg/dL 06/27/2024 8:29 AM RN SURGERY ICU [facility] Urobilinogen Urine Normal Normal, 2.0 mg/dL 06/27/2024 8:29 AM RN SURGERY ICU [facility] Nitrite Urine Negative Negative 06/27/2024 8:29 AM RN SURGERY ICU [facility] Leukocyte Esterase Urine Negative Negative 06/27/2024 8:29 AM RN SURGERY ICU [facility] RBC Urine 0 <=2 /HPF 06/27/2024 8:29 AM RN SURGERY ICU [facility] WBC Urine 0 <=5 /HPF 06/27/2024 8:29 AM RN SURGERY ICU [facility] Squamous Epithelials Urine 2(H) <=1 /HPF 06/27/2024 8:29 AM RN SURGERY ICU [facility] Urine URINE SPECIMEN OBTAINED BY CLEAN CATCH PROCEDURE / Unknown Non-blood Collection / Unknown 06/27/2024 8:12 AM RN SURGERY ICU 06/27/2024 8:18 AM RN SURGERY ICU Narrative [facility] - 06/27/2024 8:29 AM RN SURGERY ICU Urine Culture not indicated Rl Marly Elias MD LAB - URINE ORDER SYD Final Result [facility] [place] [facility] [address] [facility], [address] [place] [address], [facility] * Adult Type and Screen (06/27/2024 5:57 AM RN SURGERY ICU) ABO/RH(D) A POS 06/27/2024 11:54 AM RN SURGERY ICU [facility] Antibody Screen Negative Negative 06/27/2024 11:54 AM RN SURGERY ICU [facility] Comment:Current antibody scr een is negative. Patient has a history of antibody(ies). A delay in compatible red blood cells may occur. SPECIMEN EXPIRATION DATE [id number] 06/27/2024 11:54 AM RN SURGERY ICU [facility] Blood BLOOD SPECIMEN / Unknown Venipuncture / Unknown 06/27/2024 5:57 AM RN SURGERY ICU 06/27/2024 6:07 AM RN SURGERY ICU Rl Elias MD LAB - BLOOD BANK TEST ORDER Final Result Performing Organization Address [facility] Co de Phone Number U BLOOD BANK [address] [place] [address] * (ABNORMAL) RBC and Platelet Morphology (06/27/2024 5:57 AM RN SURGERY ICU) RBC Morphology Confirmed RBC Indices 06/27/2024 10:33 AM RN SURGERY ICU [facility] Platelet Assessment Automated Count Confirmed. Platelet morphology is normal. Automated Count Confirmed. Platelet morphology is normal. 06/27/2024 10:33 AM RN SURGERY ICU [facility] Mary Cells Moderate(A) None Seen 06/27/2024 10:33 AM RN SURGERY ICU [facility] Polychromasia Slight(A) None Seen 06/27/2024 10:33 AM RN SURGERY ICU [facility] Sickle Cells Slight(A) None Seen 06/27/2024 10:33 AM RN SURGERY ICU [facility] Target Cells Slight(A) None Seen 06/27/2024 10:33 AM RN SURGERY ICU [facility] Blood BLOOD SPECIMEN / Unknown Venipuncture / Unknown 06/27/2024 5:57 AM RN SURGERY ICU 06/27/2024 6:07 AM RN SURGERY ICU Rl Elias MD LAB - BLOOD ORDER SYD Final Result Performing Organization Address City/[facility]/ZIP Co de Phone Number U [facility] [place] [facility] [address] [facility], [address] [place] [address] * (ABNORMAL) CBC with platelets and differential (06/27/2024 5:57 AM RN SURGERY ICU) WBC Count 17.8(H) 4.0 - 11.0 10e3/uL 06/27/2024 10:36 AM RN SURGERY ICU [facility] Comment:Albumin treated bloo d due to Smudge Cells. RBC Count 2.60(L) 3.80 - 5.20 10e6/uL 06/27/2024 10:36 AM RN SURGERY ICU [facility] Hemoglobin 8.5(L) 11.7 - 15.7 g/dL 06/27/2024 10:36 AM RN SURGERY ICU [facility] Hematocrit 25.9(L) 35.0 - 47.0 % 06/27/2024 10:36 AM RN SURGERY ICU [facility] MCV 100 78 - 100 fL 06/27/2024 10:36 AM RN SURGERY ICU [facility] MCH 32.7 26.5 - 33.0 pg 06/27/2024 10:36 AM RN SURGERY ICU [facility] MCHC 32.8 31.5 - 36.5 g/dL 06/27/2024 10:36 AM RN SURGERY ICU [facility] RDW 19.2(H) 10.0 - 15.0 % 06/27/2024 10:36 AM RN SURGERY ICU [facility] Platelet Count 469(H) 150 - 450 10e3/uL 06/27/2024 10:36 AM RN SURGERY ICU [facility] % Neutrophils 44 % 06/27/2024 10:36 AM RN SURGERY ICU [facility] % Lymphocytes 46 % 06/27/2024 10:36 AM RN SURGERY ICU [facility] % Monocytes 7 % 06/27/2024 10:36 AM RN SURGERY ICU [facility] % Eosinophils 3 % 06/27/2024 10:36 AM RN SURGERY ICU [facility] % Basophils 1 % 06/27/2024 10:36 AM RN SURGERY ICU [facility] % Immature Granulocytes 0 % 06/27/2024 10:36 AM RN SURGERY ICU [facility] NRBCs per 100 WBC 1(H) <1 /100 025 10:36 AM RN SURGERY ICU [facility] Absolute Neutrophils 7.6 1.6 - 8.3 10e3/uL 06/27/2024 10:36 AM RN SURGERY ICU [facility] Absolute Lymphocytes 8.0(H) 0.8 - 5.3 10e3/uL 06/27/2024 10:36 AM RN SURGERY ICU [facility] Absolute Monocytes 1.2 0.0 - 1.3 10e3/uL 06/27/2024 10:36 AM RN SURGERY ICU [facility] Absolute Eosinophils 0.5 0.0 - 0.7 10e3/uL 06/27/2024 10:36 AM RN SURGERY ICU [facility] Absolute Basophils 0.2 0.0 - 0.2 10e3/uL 06/27/2024 10:36 AM RN SURGERY ICU [facility] Absolute Immature Granulocytes 0.1 <=0.4 10e3/uL 06/27/2024 10:36 AM RN SURGERY ICU [facility] Absolute NRBCs 0.2 10e3/uL 06/27/2024 10:36 AM RN SURGERY ICU [facility] Blood BLOOD SPECIMEN / Unknown Venipuncture / Unknown 06/27/2024 5:57 AM RN SURGERY ICU 06/27/2024 6:07 AM RN SURGERY ICU Rl Elias MD LAB - BLOOD ORDER SYD Final Result Performing Organization Address City/[facility]/ZIP Co de Phone Number [facility] [place] [facility] [address] [facility], [address] * (ABNORMAL) Reticulocyte count (06/27/2024 5:57 AM RN SURGERY ICU) % Reticulocyte 15.5(H) 0.5 - 2.0 % 06/27/2024 9:16 AM RN SURGERY ICU [facility] Comment:x2 dilution Absolute Reticulocyte 0.404(H) 0.025 - 0.095 10e6/uL 06/27/2024 9:16 AM RN SURGERY ICU [facility] Comment:x2 dilution Blood BLOOD SPECIMEN / Unknown Venipuncture / Unknown 06/27/2024 5:57 AM RN SURGERY ICU 06/27/2024 6:07 AM RN SURGERY ICU Rl Elias MD LAB - BLOOD ORDER SYD Final Result [facility] [address] [facility], [address] * (ABNORMAL) Hepatic panel (06/27/2024 5:57 AM RN SURGERY ICU) Protein Total 7.4 6.4 - 8.3 g/dL 06/27/2024 9:06 AM RN SURGERY ICU [facility] Albumin 4.0 3.5 - 5.2 g/dL 06/27/2024 9:06 AM RN SURGERY ICU [facility] Bilirubin Total 1.2 <=1.2 mg/dL 06/27/2024 9:06 AM RN SURGERY ICU [facility] Alkaline Phosphatase 113 40 - 150 U/L 06/27/2024 9:06 AM RN SURGERY ICU [facility] AST 41 0 - 45 U/L 06/27/2024 9:06 AM RN SURGERY ICU [facility] ALT 35 0 - 50 U/L 06/27/2024 9:06 AM RN SURGERY ICU [facility] Bilirubin Direct 0.45(H) 0.00 - 0.30 mg/dL 06/27/2024 9:06 AM RN SURGERY ICU [facility] Blood BLOOD SPECIMEN / Unknown Venipuncture / Unknown 06/27/2024 5:57 AM RN SURGERY ICU 06/27/2024 6:06 AM RN SURGERY ICU us Rl Elias MD LAB - BLOOD ORDER SYD Final Result [facility] [address] [facility], [address] [place] [id number] * (ABNORMAL) CBC with platelets (06/27/2024 5:57 AM RN SURGERY ICU) WBC Count 17.8(H) 4.0 - 11.0 10e3/uL 06/27/2024 6:16 AM RN SURGERY ICU [facility] RBC Count 2.60(L) 3.80 - 5.20 10e6/uL 06/27/2024 6:16 AM RN SURGERY ICU [facility] Hemoglobin 8.5(L) 11.7 - 15.7 g/dL 06/27/2024 6:16 AM RN SURGERY ICU [facility] Hematocrit 25.9(L) 35.0 - 47.0 % 06/27/2024 6:16 AM RN SURGERY ICU [facility] MCV 100 78 - 100 fL 06/27/2024 6:16 AM RN SURGERY ICU [facility] MCH 32.7 26.5 - 33.0 pg 06/27/2024 6:16 AM RN SURGERY ICU [facility] MCHC 32.8 31.5 - 36.5 g/dL 06/27/2024 6:16 AM RN SURGERY ICU [facility] RDW 19.2(H) 10.0 - 15.0 % 06/27/2024 6:16 AM RN SURGERY ICU [facility] Platelet Count 469(H) 150 - 450 10e3/uL 06/27/2024 6:16 AM RN SURGERY ICU [facility] Blood BLOOD SPECIMEN / Unknown Venipuncture / Unknown 06/27/2024 5:57 AM RN SURGERY ICU 06/27/2024 6:07 AM RN SURGERY ICU Jermaine Quispe MD LAB - BLOOD ORDERABLES Final Res ult [facility] [address] [facility], [address] [place] [id number] * (ABNORMAL) Basic metabolic panel (06/27/2024 5:57 AM RN SURGERY ICU) Sodium 136 135 - 145 mmol/L 06/27/2024 7:08 AM RN SURGERY ICU [facility] Potassium 4.2 3.4 - 5.3 mmol/L 06/27/2024 7:08 AM RN SURGERY ICU [facility] Chloride 104 98 - 107 mmol/L 06/27/2024 7:08 AM RN SURGERY ICU [facility] Carbon Dioxide (CO2) 23 22 - 29 mmol/L 06/27/2024 7:08 AM RN SURGERY ICU [facility] Anion Gap 9 7 - 15 mmol/L 06/27/2024 7:08 AM RN SURGERY ICU [facility] Urea Nitrogen 8.0 6.0 - 20.0 mg/dL 06/27/2024 7:08 AM RN SURGERY ICU [facility] LABORATORY Creatinine 0.74 0.51 - 0.95 mg/dL 06/27/2024 7:08 AM RN SURGERY ICU [facility] GFR Estimate >90 >60 mL/min/1.7 3m2 06/27/2024 7:08 AM RN SURGERY ICU [facility] Comment:eGFR calculated us2020 CKD-EPI equation. Calcium 8.7(L) 8.8 - 10.4 mg/dL 06/27/2024 7:08 AM RN SURGERY ICU [facility] Glucose 90 70 - 99 mg/dL 06/27/2024 7:08 AM RN SURGERY ICU [facility] Blood BLOOD SPECIMEN / Unknown Venipuncture / Unknown 06/27/2024 5:57 AM RN SURGERY ICU 06/27/2024 6:06 AM RN SURGERY ICU Jermaine Quispe MD LAB - BLOOD ORDERABLES Final Res ult Performing Organization Address City/[facility]/ZIP Co de Phone Number U LABORATORY [facility] Core Lab [address] [facility], [address] * Heparin Unfractionated Anti Xa Level (06/27/2024 5:56 AM RN SURGERY ICU) Anti Xa Unfractionated Heparin 0.30 For Reference Range, See Comment IU/mL 06/27/2024 6:29 AM RN SURGERY ICU [facility] Blood STRUCTURE OF RIGHT HAND / Unknown Venipuncture / Unknown 06/27/2024 5:56 AM RN SURGERY ICU 06/27/2024 6:07 AM RN SURGERY ICU Narrative [facility] LAB[facility] - 06/27/2024 6:29 AM RN SURGERY ICU Therapeutic Range: UFH: 0.25-0.50 IU/mL for low intensity dosing, 0.30-0.70 IU/mL for high intensity dosing DVT and PE. This test is not validated for other direct factor X inhibitors (e.g. rivaroxaban, apixaban, edoxaban, betrixaban, fondaparinux) and should not be used for monitoring of other medications. us Esdras Markham MD LAB - BLOOD ORDERABLES Final Res ult Performing Organization Address City/[facility] Co de Phone Number LABORATORY [facility] Core Lab [address] [facility], Room [address] [place] [address] * Heparin Unfractionated Anti Xa Level (06/26/2024 10:46 PM RN SURGERY ICU) Anti Xa Unfractionated Heparin 0.28 For Reference Range, See Comment IU/mL 06/26/2024 11:13 PM RN SURGERY ICU [facility] Blood STRUCTURE OF RIGHT HAND / Unknown Venipuncture / Unknown 06/26/2024 10:46 PM RN SURGERY ICU 06/26/2024 10:55 PM RN SURGERY ICU Narrative [facility] LAB[facility]ATORY - 06/26/2024 11:13 PM RN SURGERY ICU Therapeutic Range: UFH: 0.25-0.50 IU/mL for low intensity dosing, 0.30-0.70 IU/mL for high intensity dosing DVT and PE. This test is not validated for other direct factor X inhibitors (e.g. rivaroxaban, apixaban, edoxaban, betrixaban, fondaparinux) and should not be used for monitoring of other medications. Jermaine Quispe MD LAB - BLOOD ORDERABLES Final Res ult Performing Organization Address City/[facility] Co de Phone Number U LABORATORY [facility] Core Lab [address] [facility], Room [address] * (ABNORMAL) Erythrocyte sedimentation rate auto (06/26/2024 6:46 PM RN SURGERY ICU) Pathologist [facility] Erythrocyte Sedimentation Rate 24(H) 0 - 20 mm/hr 06/26/2024 7:28 PM RN SURGERY ICU U LABORATORY Blood BLOOD SPECIMEN / Unknown Venipuncture / Unknown 06/26/2024 6:46 PM RN SURGERY ICU 06/26/2024 7:14 PM RN SURGERY ICU Jermaine Quispe MD LAB - BLOOD ORDERABLES Final Res ult Performing Organization Address [facility] de Phone Number LABORATORY [facility] Core Lab [address] [facility], [facility] [address] [id number] * EKG 12 lead (06/26/2024 5:19 PM RN SURGERY ICU) Systolic Blood Pressure mmHg RADIOLOGY RESULTS Diastolic Blood Pressure mmHg RADIOLOGY RESULTS Ventricular Rate 79 BPM RAD IOLOGY RESULTS Atrial Rate 79 BPM RADIOLOG Y RESULTS AK Interval 160 ms RADIOLOG Y RESULTS QRS Duration 78 ms RADIOLO GY RESULTS QT 380 ms RADIOLOGY RESULTS QTc 435 ms RADIOLOGY RESULTS P Dupo 39 degrees RADIOLOGY RESULTS R AXIS 42 degrees RADIOLOGY RESULTS T Dupo 18 degrees RADIOLOGY RESULTS Interpretation ECG Sinus rhythm Normal ECG Unconfirmed report - interpretation of this ECG is computer generated - see medical record for final interpretation Confirmed by - EMERGENCY ROOM, PHYSICIAN ([id number]), film editor supervisor Wodoy Patten ([id number]) on 06/27/2024 6:46:34 AM RADIOLOGY RESULTS 06/26/2024 5:19 PM RN SURGERY ICU 06/27/2024 6:46 AM RN SURGERY ICU Jayden Adhikari MD ECG ORDERABLES Edited Resul t - Final RADIOLOGY RESULTS * CT Chest Pulmonary Embolism w Contrast (06/26/2024 4:15 PM RN SURGERY ICU) Anatomical Region Laterality Modality Chest, SUBRAD CT BODY, UMP CT CHEST Computed Tomography Impressions 06/26/2024 4:29 PM RN SURGERY ICU IMPRESSION: Bilateral pulmonary emboli and bilateral pulmonary nodules, cannot exclude septic emboli the lungs given 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 No definitive evidence of right heart strain. Some bony changes again noted of sickle cell in the thoracic spine and humeral heads typical of microvascular insults related to sickle cell. EVY FUENTES MD Narrative 06/26/2024 4:29 PM RN SURGERY ICU CT chest pulmonary angiogram with contrast INDICATION: [...] XR, PA & LAT (06/26/2024 3:13 PM RN SURGERY ICU) Anatomical Region Laterality Modality Chest Digital Radiogra phy Impressions 06/26/2024 3:24 PM RN SURGERY ICU IMPRESSION: 1. Stable appearance of right middle lobe opacities which may represent infiltrate versus atelectasis. 2. No new or worsening cardiopulmonary abnormality. I have personally reviewed the examination and initial interpretation and I agree with the findings. EVY FUENTES MD Narrative 06/26/2024 3:24 PM RN SURGERY ICU EXAM: XR CHEST 2 VIEWS 06/26/2024 3:13 [...] findings. EVY FUENTES MD Jayden Adhikari MD [facility] DIAGNOSTIC IMAGING ORDER SYD Final Result * Procalcitonin (06/26/2024 2:42 PM RN SURGERY ICU) Procalcitonin 0.03 <0.50 ng/mL 06/26/2024 5:02 PM RN SURGERY ICU [facility] Comment: Interpretation and Recommendations <0.5 [...] See Procalcitonin Guidance document for more details. [email or web address] Factors that may affect PCT levels (not [...] Unknown Venipuncture / Unknown 06/26/2024 2:42 PM RN SURGERY ICU 06/26/2024 2:52 PM RN SURGERY ICU Jayden Adhikari MD LAB - BLOOD ORDERABLES Final Result U LABORATORY [facility] [place] Core Lab [address] [facility], [address] * CRP inflammation (06/26/2024 2:42 PM RN SURGERY ICU) [facility] CRP Inflammation 4.22 <5.00 mg/L 06/27/19 25 5:02 PM RN SURGERY ICU LABORATORY Blood BLOOD SPECIMEN / Unknown Venipuncture / Unknown 06/26/2024 2:42 PM RN SURGERY ICU 06/26/2024 2:52 PM RN SURGERY ICU Jayden Adhikari MD LAB - BLOOD ORDERABLES Final Result LABORATORY [facility] [place] Core Lab [address] [facility], [address] * Adult Type and Screen (06/26/2024 2:42 PM RN SURGERY ICU) Pathologist [facility] ABO/RH(D) A POS 06/26/2024 2:30 PM RN SURGERY ICU [facility] BANK Antibody Screen Negative Negative 06/26/2024 2:30 PM RN SURGERY ICU [facility] B[facility] Comment:Current antibody scr een is negative. Patient has a history of antibody(ies). A delay in compatible red blood cells may occur. SPECIMEN EXPIRATION DATE [id number] 06/26/2024 2:30 PM RN SURGERY ICU [facility] BLO[facility] BANK Blood BLOOD SPECIMEN / Unknown Venipuncture / Unknown 06/26/2024 2:42 PM RN SURGERY ICU 06/26/2024 2:50 PM RN SURGERY ICU Jayden Adhikari MD LAB - BLOOD BANK TEST ORDER Final Result U BLOOD BANK [address] [place] [phone] * (ABNORMAL) CBC with platelets and differential (06/26/2024 2:42 PM RN SURGERY ICU) WBC Count 12.3(H) 4.0 - 11.0 10e3/uL 06/26/2024 3:23 PM RN SURGERY ICU [facility] RBC Count 2.58(L) 3.80 - 5.20 10e6/uL 06/26/2024 3:23 PM RN SURGERY ICU [facility] Hemoglobin 8.5(L) 11.7 - 15.7 g/dL 06/26/2024 3:23 PM RN SURGERY ICU [facility] Hematocrit 26.1(L) 35.0 - 47.0 % 06/26/2024 3:23 PM RN SURGERY ICU [facility] MCV 101(H) 78 - 100 fL 06/26/2024 3:23 PM RN SURGERY ICU [facility] MCH 32.9 26.5 - 33.0 pg 06/26/2024 3:23 PM RN SURGERY ICU [facility] MCHC 32.6 31.5 - 36.5 g/dL 06/26/2024 3:23 PM RN SURGERY ICU [facility] RDW 19.5(H) 10.0 - 15.0 % 06/26/2024 3:23 PM RN SURGERY ICU [facility] Platelet Count 505(H) 150 - 450 10e3/uL 06/26/2024 3:23 PM RN SURGERY ICU [facility] % Neutrophils 69 % 06/26/2024 3:23 PM RN SURGERY ICU [facility] % Lymphocytes 20 % 06/26/2024 3:23 PM RN SURGERY ICU [facility] % Monocytes 9 % 06/26/2024 3:23 PM RN SURGERY ICU [facility] % Eosinophils 1 % 06/26/2024 3:23 PM RN SURGERY ICU [facility] % Basophils 1 % 06/26/2024 3:23 PM RN SURGERY ICU [facility] % Immature Granulocytes 1 % 06/26/2024 3:23 PM RN SURGERY ICU [facility] NRBCs per 100 WBC 1(H) <1 /100 025 3:23 PM RN SURGERY ICU [facility] Absolute Neutrophils 8.4(H) 1.6 - 8.3 10e3/uL 06/26/2024 3:23 PM RN SURGERY ICU [facility] Absolute Lymphocytes 2.4 0.8 - 5.3 10e3/uL 06/26/2024 3:23 PM RN SURGERY ICU [facility] Absolute Monocytes 1.1 0.0 - 1.3 10e3/uL 06/26/2024 3:23 PM RN SURGERY ICU [facility] Absolute Eosinophils 0.1 0.0 - 0.7 10e3/uL 06/26/2024 3:23 PM RN SURGERY ICU [facility] Absolute Basophils 0.2 0.0 - 0.2 10e3/uL 06/26/2024 3:23 PM RN SURGERY ICU [facility] Absolute Immature Granulocytes 0.1 <=0.4 10e3/uL 06/26/2024 3:23 PM RN SURGERY ICU [facility] Absolute NRBCs 0.1 10e3/uL 06/26/2024 3:23 PM RN SURGERY ICU [facility] Blood BLOOD SPECIMEN / Unknown Venipuncture / Unknown 06/26/2024 2:42 PM RN SURGERY ICU 06/26/2024 2:52 PM RN SURGERY ICU us Jayden Adhikari MD LAB - BLOOD ORDERABLES Final Result [facility] LABORATORY [facility] [place] Core Lab [address] [facility], [address] [place] [address] * Troponin T, High Sensitivity (06/26/2024 2:42 PM RN SURGERY ICU) [facility] Troponin T, High Sensitivity <6 <=14 ng/L 06/26/2024 3:24 PM RN SURGERY ICU [facility] Comment: Either a High Sensitivity [...] Unknown Venipuncture / Unknown 06/26/2024 2:42 PM RN SURGERY ICU 06/26/2024 2:52 PM RN SURGERY ICU Jayden Adhikari MD LAB - BLOOD ORDERABLES Final Result Performing Organization Address City/[facility]/ZIP Co de Phone Number U LABORATORY [facility] Core Lab [address] [facility], [address] [phone] * (ABNORMAL) D dimer quantitative (06/26/2024 2:42 PM RN SURGERY ICU) D-Dimer Quantitative 0.69(H) 0.00 - 0.50 ug/mL FEU 06/26/2024 3:13 PM RN SURGERY ICU [facility] Blood BLOOD SPECIMEN / Unknown Venipuncture / Unknown 06/26/2024 2:42 PM RN SURGERY ICU 06/26/2024 2:52 PM RN SURGERY ICU Narrative [facility] LAB[facility]ATORY - 06/26/2024 3:13 PM RN SURGERY ICU This D-dimer assay is intended for use in conjunction with a clinical pretest probability assessment model to exclude pulmonary embolism (PE) and deep venous thrombosis (DVT) in outpatients suspected of PE or DVT. The cut-off value is 0.50 ug/mL FEU. Jayden Adhikari MD LAB - BLOOD ORDERABLES Final Result Performing Organization Address [facility]/ZIP Co de Phone Number [facility] LABORATORY [facility] [place] Core Lab [address] [facility], [address] * HCG qualitative (blood) (06/26/2024 2:42 PM RN SURGERY ICU) Pathologist [facility] hCG Serum Qualitative Negative Negative JARET 06/26/2024 3:04 PM RN SURGERY ICU [facility] Comment:This test is for scr eening purposes. Results should be interpreted along with the clinical picture. Confirmation testing is available if warranted by ordering [id number], HCG Quantitative . Blood BLOOD SPECIMEN / Unknown Venipuncture / Unknown 06/26/2024 2:42 PM RN SURGERY ICU 06/26/2024 2:50 PM RN SURGERY ICU Jayden Adhikari MD LAB - BLOOD ORDERABLES Final Result [facility] LABORATORY [facility] [place] Core Lab [address] [facility], [address] * (ABNORMAL) Basic metabolic panel (06/26/2024 2:42 PM RN SURGERY ICU) [facility] Sodium 140 135 - 145 mmol/L 06/26/2024 3:24 PM RN SURGERY ICU [facility] Potassium 4.3 3.4 - 5.3 mmol/L 06/26/2024 3:24 PM RN SURGERY ICU [facility] Chloride 109(H) 98 - 107 mmol/L 06/26/2024 3:24 PM RN SURGERY ICU [facility] Carbon Dioxide (CO2) 20(L) 22 - 29 mmol/L 06/26/2024 3:24 PM RN SURGERY ICU [facility] Anion Gap 11 7 - 15 mmol/L 06/26/2024 3:24 PM RN SURGERY ICU [facility] Urea Nitrogen 6.7 6.0 - 20.0 mg/dL 06/26/2024 3:24 PM RN SURGERY ICU [facility] Creatinine 0.66 0.51 - 0.95 mg/dL 06/26/2024 3:24 PM RN SURGERY ICU [facility] GFR Estimate >90 >60 mL/min/1.7 3m2 06/26/2024 3:24 PM RN SURGERY ICU [facility] Comment:eGFR calculated usin 2020 CKD-EPI equation. Calcium 9.0 8.8 - 10.4 mg/dL 06/26/2024 3:24 PM RN SURGERY ICU [facility] Glucose 94 70 - 99 mg/dL 06/26/2024 3:24 PM RN SURGERY ICU [facility] Blood BLOOD SPECIMEN / Unknown Venipuncture / Unknown 06/26/2024 2:42 PM RN SURGERY ICU 06/26/2024 2:52 PM RN SURGERY ICU Jayden Adhikari MD LAB - BLOOD ORDERABLES Final Result [facility] LABORATORY [facility] [place] Core Lab [address] [facility], [address] [place] [address], [facility] documented in this encounter Visit [...] DVT-PE TreatmentIndications:DVT-PE Treatment $Given 06/29/2024 7:56 AM RN SURGERY ICU 10 mg $Given 06/28/2024 8:15 PM RN SURGERY ICU 10 mg $Given 06/28/2024 8:14 AM RN SURGERY ICU 10 mg apixaban ANTICOAGULANT (ELIQUIS) tablet 5 [...] For 1 dose $Given 06/26/2024 2:36 PM RN SURGERY ICU 25 mg diphenhydrAMINE (BENADRYL) capsule 25 mg 25 mg, Oral, EVERY 6 HOURS PRN, itching, Starting on Wed06/26/24 at 1837 $Given 06/26/2024 7:20 PM RN SURGERY ICU 25 mg diphenhydrAMINE (BENADRYL) injection 25 mg 25 mg, Intravenous, EVERY 6 HOURS PRN, itching, Starting on Wed06/26/24 at 1837 $Given 06/29/2024 6:00 AM RN SURGERY ICU 25 m g $Given 06/28/2024 10:07 PM RN SURGERY ICU 25 mg $Given 06/28/2024 4:09 PM RN SURGERY ICU 25 mg FLUoxetine (PROzac) capsule 10 mg 10 mg, Oral, DAILY, First dose on Wed06/27/24 at 0800 $Given 06/29/2024 7:56 AM RN SURGERY ICU 10 mg $Given 06/28/2024 8:14 AM RN SURGERY ICU 10 mg $Given 06/27/2024 8:28 AM RN SURGERY ICU 10 mg heparin - BOLUS DOSE from [...] re-enter medication order. $Given 06/27/2024 12:06 AM RN SURGERY ICU 1,550 Units heparin - BOLUS DOSE from [...] re-enter medication order. $Given 06/27/2024 1:34 PM RN SURGERY ICU 1,550 Units heparin 25,000 units in 0.45% [...] Xa 0.3-0.7) $New Bag 06/28/2024 7:51 AM RN SURGERY ICU 1,200 Units/hr 12 mL/hr Rate/Dose Verify 06/28/2024 3:17 AM RN SURGERY ICU 1,200 Units/hr 12 mL/hr Rate/Dose Verify 06/27/2024 8:21 PM RN SURGERY ICU 1,200 Units/hr 12 mL/hr heparin ANTICOAGULANT Loading [...] re-enter medication order. $Given 06/26/2024 4:50 PM RN SURGERY ICU 4,100 Units heparin lock flush 100 unit/mL [...] each port lumen $Given 06/29/2024 10:31 AM RN SURGERY ICU 5 mLs hydromorphone (DILAUDID) injection 2 mg 2 mg, Intravenous, EVERY 1 HOUR PRN, severe pain, Starting on Wed06/26/24 at 1429, For 3 doses $Given 06/26/2024 4:34 PM RN SURGERY ICU 2 mg $Given 06/26/2024 3:34 PM RN SURGERY ICU 2 mg $Given 06/26/2024 2:40 PM RN SURGERY ICU 2 mg hydromorphone (DILAUDID) injection 2 mg 2 mg, Intravenous, EVERY 2 HOURS PRN, moderate pain, severe pain, Starting on Wed06/26/24 at 1837 $Given 06/26/2024 9:48 PM RN SURGERY ICU 2 mg $Given 06/26/2024 7:20 PM RN SURGERY ICU 2 mg hydromorphone (DILAUDID) injection 2 mg 2 mg, Intravenous, EVERY 2 HOURS, First dose (after last modification) on Wed06/27/24 at 0000, Hold for excess sedation or RR < 8 / min and inform MD. $Given 06/29/2024 10:06 AM RN SURGERY ICU 2 mg $Given 06/29/2024 8:00 AM RN SURGERY ICU 2 mg $Given 06/29/2024 6:00 AM RN SURGERY ICU 2 mg hydroxyurea (HYDREA) capsule 1,000 mg 1,000 mg, Oral, 2 TIMES DAILY, First dose on Wed06/26/24 at 2000, Indications: sickle cell, Do not crush May require hepatic and/or renal dose or frequency adjustments. See reference link for guidelines.Indications:sickle cell $Given 06/29/2024 7:56 AM RN SURGERY ICU 1,000 mg $Given 06/28/2024 8:10 PM RN SURGERY ICU 1,000 mg $Given 06/28/2024 8:18 AM RN SURGERY ICU 1,000 mg hydrOXYzine HCl (ATARAX) tablet 25 [...] contact the provider. $Given 06/28/2024 4:09 PM RN SURGERY ICU 25 mg $Given 06/27/2024 8:19 AM RN SURGERY ICU 25 mg $Given 06/27/2024 3:14 AM RN SURGERY ICU 25 mg hydrOXYzine HCl (ATARAX) tablet 50 [...] For 1 dose $Given 06/26/2024 3:53 PM RN SURGERY ICU 55 mLs lactated ringers BOLUS 1,000 mL Intravenous, 1,000 mL, ONCE, at 500 mL/hr, Administer over 2 Hours, On Wed06/26/24 at 1435, For 1 dose $New Bag 06/26/2024 2:40 PM RN SURGERY ICU 1,000 mLs 500 mL/hr Lidocaine (LIDOCARE) 4 [...] Liquid not required. $Given 06/28/2024 8:14 AM RN SURGERY ICU 4 mg $Given 06/28/2024 2:02 AM RN SURGERY ICU 4 mg $Given 06/27/2024 8:19 PM RN SURGERY ICU 4 mg ondansetron (ZOFRAN) injection 4 mg [...] IV dormant line $Given 06/29/2024 10:06 AM RN SURGERY ICU 3 mLs $Given 06/29/2024 4:00 AM RN SURGERY ICU 3 mLs $Given 06/28/2024 6:05 PM RN SURGERY ICU 3 mLs sodium chloride (PF) 0.9% PF flush 82 mL 82 mL, Intravenous, ONCE, On Wed06/26/24 at 1540, For 1 dose $Given 06/26/2024 3:53 PM RN SURGERY ICU 82 mLs documented in this encounter Active and Recently Administered Medications Times are shown in RN SURGERY ICU. Scheduled Medication Order 06/27/2024 06/28/2024 06/29/2024 apixaban [...] Duke Olivares RN)0403 ($Given - Provider: Duke Olviares RN)0611 ($Given - Provider: Duke Olivares RN)0810 [...] XA result- 0.30, in target range so software writer is NOT adjusting. ordered next lab [...] statement))0819 ($Given - Provider: Sathish Goetz, RN) 1605 ($Given - Provider: Tika Osborn, RN) hydrOXYzine [...] (See Alternative - Provider: Sathish Goetz RN) 1606 (See Alternative - Provider: Tika Osborn, RN) [...] Out COVID-19 06/27/2024 06/27/2024 06/27/2024 10:03 AM RN SURGERY ICU documented as of this encounter Care Teams Estimation Manager Relationship Specialty Start Date End Date Veronica Joseph MD [address] [place] [address] PCP - General Family Medicine 06/18/24 Mor Ramsey Medical Student 04/03/24 Case Samuel MD [address] [place] [address] [address], [address] [place] [address] Assigned Pediatric Specialist Provider 05/18/24 Juhi Benson, RN Specialty Birdcage Assembler Hematology & Oncology 05/29/24 documented as of this encounter
--- OUTSIDE RECORDS SUMMARY | 2024-06-30 23:55 | XMS_ITS | Encounter Summary ---
Author Organization [facility] Address [address] [place] [address]. [place] [address] Care Team Providers Care Motorized Squad Sergeant Name Role Phone No Ref-Primary, Physician Primary [...] on file Legal Sex Female 8:25 AM PRINCIPAL ARCHITECT Gender Identity Not on file Sexual Orientation Not on file documented as of this encounter Plan of Treatment Upcoming Encounters Date Type Department Care Team (Late st Contact Info) Description 07/10/2024 11:30 AM CDT Oncology Visit [facility] [address] [place] [phone] Case Samuel MD [address] [place] [address] [address], [address] [place] [address] documented as of this encounter Goals Goal Patient Goal Type Associated Problems Recent Progress Patient-Stated? Author Pain Management General On track( 025 12:40 PM PRINCIPAL ARCHITECT) Yes Juhi Benson, RN Note: Goal [...] on filedocumented in this encounter Care Teams Motorized Squad Sergeant Relationship Specialty Start Date End Date No Ref-Primary, Physician PCP - General 03/15/24 06/17/24 Roxy [facility] Medical Student 04/03/24 Case Samuel MD [address] [place] [address] [address], [address] [place] [address] Assigned Pediatric Specialist Provider 05/18/24 documented as of this encounter
--- OUTSIDE RECORDS SUMMARY | 2024-06-30 23:55 | XMS_ITS | Encounter Summary ---
Author Organization [facility] Address [address] [place] [address]. [place] [address] Care Team Providers Care Senior It Assistant Name Role Phone No Ref-Primary, Physician Primary Care Provider Mor Ramsey Unavailable Unavailable Case Samuel MD Unavailable [phone] Juhi Benson RN Unavailable Unavailable Encounter Details [...] file Legal Sex Female 8:25 AM SOCIAL SCIENTIST Gender Identity Not on file Sexual Orientation Not on file documented as of this encounter Plan of Treatment Upcoming Encounters Date Type Department Care Team (Late st Contact Info) Description 07/10/2024 11:30 AM CDT Oncology Visit [facility] [address] [place] [address] Case Samuel MD [address] [place] [address], [address] [place] [address] documented as of this encounter Goals Goal Patient Goal Type Associated Problems Recent Progress Patient-Stated? Author Pain Management General On track( 025 12:40 PM SOCIAL SCIENTIST) Yes Juhi Benson, RN Note: Goal [...] filedocumented in this encounter Care Teams Senior It Assistant Relationship Specialty Start Date End Date No Ref-Primary, Physician PCP - General 03/15/24 06/17/24 Mor Ramsey Medical Student 04/03/24 Case Samuel MD [address] [place] [address] [address], [address] [place] [address] Assigned Pediatric Specialist Provider 05/18/24 Juhi Benson, RN Specialty Title Agent Hematology & Oncology 05/29/24 documented as of this encounter
--- OUTSIDE RECORDS SUMMARY | 2024-06-30 23:56 | XMS_ITS | Encounter Summary ---
Author Organization [facility] Address [address] [place] [address]. [place] [address] Care Team Providers Care Senior Associate Name Role Phone No Ref-Primary, Physician Primary Care Provider Mor Ramsey Unavailable Unavailable Case Samuel MD Unavailable [phone] Juhi Benson RN Unavailable Unavailable Encounter Details [...] file Legal Sex Female 8:25 AM MANAGER CONTRACTING Gender Identity Not on file Sexual Orientation Not on file documented as of this encounter Plan of Treatment Upcoming Encounters Date Type Department Care Team (Late st Contact Info) Description 07/10/2024 11:30 AM CDT Oncology Visit [facility] [address] [place] [address] Case Samuel MD [address] [place] [address] [address], [address] [place] [address] documented as of this encounter Goals Goal Patient Goal Type Associated Problems Recent Progress Patient-Stated? Author Pain Management General On track( 025 12:40 PM MANAGER CONTRACTING) Yes Juhi Benson, RN Note: Goal Statement: [...] filedocumented in this encounter Care Teams Senior Associate Relationship Specialty Start Date End Date No Ref-Primary, Physician PCP - General 03/15/24 06/17/24 Mor Ramsey Medical Student 04/03/24 Case Samuel MD [address] [place] [address] [address], [address] [place] [address] Assigned Pediatric Specialist Provider 05/18/24 Juhi Benson, RN Specialty Echocardiograph Tech Hematology & Oncology 05/29/24 documented as of this encounter
--- OUTSIDE RECORDS SUMMARY | 2024-06-30 23:56 | XMS_ITS | Encounter Summary ---
Author Organization [facility] Address [address] [place] [address]. [place] [address] Care Team Providers Care Curator Medical Museum Name Role Phone No Ref-Primary, Physician Primary Care Provider Mro Ramsey Unavailable Unavailable Case Samuel MD Unavailable [phone] Juhi Benson RN Unavailable Unavailable Reason for Visit * Reason Comments Infusion * Auth/Cert Specialty Diagnoses / Procedures Referred By Shahid t Referred To Contact EMERGENCY MEDICINE Diagnoses Acute chest pain Sickle cell pain crisis (H) [facility] Emergency Department [address] [place] [address] Phone: tel: Referral ID Status Reason Start Date Expiration Date Visits Re quested Visits Authorized [id number] 1 1 Encounter Details Date Type Department Care Team ([facility] st Contact Info) Description 06/09/2024 11:30 AM CARAMEL CUTTER HAND Infusion Therapy Visit [facility] [address] [place] [address] Case Samuel MD [address] [facility] [address], [address] [place] [address] Sickle cell pain crisis (H) [...] on file Legal Sex Female 8:25 AM CARAMEL CUTTER HAND Gender Identity Not on file Sexual Orientation Not on file documented as of this encounter Last Filed Vital Signs Vital Sign Reading Time Taken Comments Blood Pressure 123/75 06/09/2024 11:45 AM CARAMEL CUTTER HAND Pulse 87 06/09/2024 11:45 AM CARAMEL CUTTER HAND Temperature 37 C (98.6 F) 06/09/2024 11:45 AM CARAMEL CUTTER HAND Respiratory Rate 16 06/09/2024 11:45 AM CARAMEL CUTTER HAND Oxygen Saturation 100% 06/09/2024 11:45 AM CARAMEL CUTTER HAND Inhaled Oxygen Concentration - - Weight - - Height - - Body Mass Index - - documented in this encounter Progress Notes * Lynne Camacho, RN - 06/09/2024 11:30 AM CST Infusion Nursing Note: Gianna Hernández presents today for IV fluids + Dilaudid. Patient seen by provider today: No Security Agent present during visit today: Not Applicable. Note: Rating pain at an 8 out of 10 upon arrival. 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 Intravenous Access: Implanted Port. Treatment Conditions: [...] all questions answered. AVS to patient via [employer]. Patient will return 06/13 for next appointment. Patient discharged in stable condition accompanied by: self and boyfriend. Departure Mode: Ambulatory. Lynne Camacho RN MEL CUTTER HAND documented in this encounter Plan of Treatment Upcoming Encounters Date Type Department Care Team (Late st Contact Info) Description 07/10/2024 11:30 AM CDT Oncology Visit [facility] [address] [place] [address] Case Samuel MD [address] [place] [address] [address], [address] [place], [place] [id number] documented as of this encounter Goals Goal Patient Goal Type Associated Problems Recent Progress Patient-Stated? Author Pain Management General On track( 025 12:40 PM CARAMEL CUTTER HAND) Yes Juhi Benson, SOFIA Note: Goal Statement: [...] pain crisis (H) $Given 06/09/2024 2:03 PM CARAMEL CUTTER HAND 5 mLs hydromorphone (DILAUDID) injection 2 mg 2 mg, Intravenous, EVERY 1 HOUR PRN, severe pain, moderate pain, Starting on Wed06/09/24 at 1111, For 3 dosesIndications:Sickle cell pain crisis (H) $Given 06/09/2024 1:58 PM CARAMEL CUTTER HAND 2 mg $Given 06/09/2024 12:52 PM CARAMEL CUTTER HAND 2 mg $Given 06/09/2024 11:53 AM CARAMEL CUTTER HAND 2 mg lactated ringers BOLUS 1,000 mL Intravenous, 1,000 mL, ONCE, at 500 mL/hr, Administer over 2 Hours, On Wed06/09/24 at 1115, For 1 doseIndications:Sickle cell pain crisis (H) $New Bag 06/09/2024 11:45 AM CARAMEL CUTTER HAND 1,000 mLs 500 mL/hr sodium chloride (PF) [...] pain crisis (H) $Given 06/09/2024 11:45 AM CARAMEL CUTTER HAND 20 mLs documented in this encounter Care Teams Curator Medical Museum Relationship Specialty Start Date End Date No Ref-Primary, Physician PCP - General 03/15/24 06/17/24 Mor Ramsey Medical Student 04/03/24 Case Samuel MD [address] [place] [address] [address], [address] [place] [address] Assigned Pediatric Specialist Provider 05/18/24 Juhi Benson, RN Specialty Outdoor Recreation Specialist Hematology & Oncology 05/29/24 documented as of this encounter
--- OUTSIDE RECORDS SUMMARY | 2024-06-30 23:56 | XMS_ITS | Encounter Summary ---
Author Organization [place] Address [address] [place] [address]. [place] [address] Care Team Providers Care Pasteuriser Operator Name Role Phone Roxy Mor Unavailable Unavailable Case Samuel MD Unavailable [phone] Juhi Benson RN Unavailable Unavailable Veronica Joseph MD Primary Care Provider [phone] Encounter Details Date Type Department Care Team [...] on file Legal Sex Female 8:25 AM CREATIVE SERVICES WRITER Gender Identity Not on file Sexual Orientation Not on file documented as of this encounter Plan of Treatment Upcoming Encounters Date Type Department Care Team (Late st Contact Info) Description 07/10/2024 11:30 AM CDT Oncology Visit [facility] [address] [place] [address] Case Samuel MD [address] [place] [address] [address], [address] [place], [place] [address] documented as of this encounter Goals Goal Patient Goal Type Associated Problems Recent Progress Patient-Stated? Author Pain Management General On track( 025 12:40 PM CREATIVE SERVICES WRITER) Yes Juhi Benson RN Note: Goal Statement: [...] on filedocumented in this encounter Care Teams Pasteuriser Operator Relationship Specialty Start Date End Date Veronica Joseph MD [address] [place] [address] PCP - General Family Medicine 06/18/24 Mor Ramsey Medical Student 04/03/24 Case Samuel MD [address] [place] [address] [address], [address] [place] [address] Assigned Pediatric Specialist Provider 05/18/24 Juhi Benson, RN Specialty Residential Real Estate Appraiser Hematology & Oncology 05/29/24 documented as of this encounter
--- OUTSIDE RECORDS SUMMARY | 2024-06-30 23:56 | XMS_ITS | Encounter Summary ---
Author Organization [facility] Address [address] [place] [address]. [place] [address] Care Team Providers Care Survey Chief Name Role Phone No Ref-Primary, Physician Primary Care Provider Mor Ramsey Unavailable Unavailable Case Samuel MD Unavailable [phone] Juhi Benson RN Unavailable Unavailable Encounter Details [...] on file Legal Sex Female 8:25 AM ROOF MECHANIC Gender Identity Not on file Sexual Orientation Not on file documented as of this encounter Plan of Treatment Upcoming Encounters Date Type Department Care Team (Late st Contact Info) Description 07/10/2024 11:30 AM CDT Oncology Visit [facility] [address] [place] [address] Case Samuel MD [address] [place] [address] [address], [address] [place] [address] documented as of this encounter Goals Goal Patient Goal Type Associated Problems Recent Progress Patient-Stated? Author Pain Management General On track( 025 12:40 PM ROOF MECHANIC) Yes Juhi Benson, RN Note: Goal [...] on filedocumented in this encounter Care Teams Survey Chief Relationship Specialty Start Date End Date No Ref-Primary, Physician PCP - General 03/15/24 06/17/24 Mor Ramsey Medical Student 04/03/24 Case Samuel MD [address] [place] [address] [address], [address] [place] [address] Assigned Pediatric Specialist Provider 05/18/24 Juhi Benson, RN Specialty Data Processing Consultant Hematology & Oncology 05/29/24 documented as of this encounter
--- OUTSIDE RECORDS SUMMARY | 2024-06-30 23:56 | XMS_ITS | Encounter Summary ---
Author Organization [facility] Address [address] [place] [address]. [place] [address] Care Team Providers Care Fuel Dock Attendant Name Role Phone No Ref-Primary, Physician Primary Care Provider Mor Ramsey Unavailable Unavailable Case Samuel MD Unavailable [phone] Juhi Benson RN Unavailable Unavailable Reason for Visit * Reason Comments Sickle Cell Pain Crisis Chest Pain Encounter Details Date Type Department Care Team (Late st Contact Info) Description 06/05/2024 11:41 AM BRAKE ADJUSTER - 06/05/2024 3:28 PM [facility] Emergency Room [address] [place] [address] Stiven Madsen MD [address] [place] [address] Star Gifford MD [address] [place], [place] [id number] Sickle cell pain crisis (H) Discharge Disposition: [...] on file Legal Sex Female 8:25 AM BRAKE ADJUSTER Gender Identity Not on file Sexual Orientation Not on file documented as of this encounter Last Filed Vital Signs Vital Sign Reading Time Taken Comments Blood Pressure 114/67 06/05/2024 3:00 PM BRAKE ADJUSTER Pulse 74 06/05/2024 3:00 PM BRAKE ADJUSTER Temperature 36.8 C (98.3 F) 06/05/2024 11:37 AM BRAKE ADJUSTER Respiratory Rate 18 06/05/2024 11:37 AM BRAKE ADJUSTER Oxygen Saturation 99% 06/05/2024 3:00 PM BRAKE ADJUSTER Inhaled Oxygen Concentration - - Weight 52.2 kg (115 lb) 06/05/2024 11:37 AM BRAKE ADJUSTER Height 154.9 cm (5' 1) 06/05/2024 11:37 AM BRAKE ADJUSTER Body Mass Index 21.73 06/05/2024 11:37 AM BRAKE ADJUSTER documented in this encounter Discharge Instructions * Discharge Instructions* Stiven Madsen MD - 06/05/2024 12:59 PM BRAKE ADJUSTER You were seen in the emergency department for a pain crisis. You were given medications and IV fluids. Please continue to follow-up with your established street inspector after this ED visit. E ADJUSTER documented in this encounter Medications at Time [...] with other provider:Did you involve another provider (transformation consultant, , pharmacy, etc.)?: No Discharge. No recommendations on prescription strength medication(s). See documentation for any additional details. MIPS: Not Applicable MEDICATIONS GIVEN IN THE EMERGENCY: Medications lactated ringers infusion (0 mLs Intravenous Stopped 06/05/24 5544) ondansetron (ZOFRAN) injection 8 mg (8 mg Intravenous $Given 06/05/24 1231) diphenhydrAMINE (BENADRYL) capsule 25 mg (25 mg Oral $Given 06/05/24 1240) NEW PRESCRIPTIONS STARTED AT TODAY'S ER VISIT Discharge Medication List as of 06/05/2024 3:28 PM HPI Patient information was obtained from: Patient Use of Head Of Ict: N/A Gianna Hernández is a 29 year [...] Per chart review, patient was seen at [facility] ED for sickle cell pain 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 Recently moved to [place] from [place], [place]. She is 1 of 9 [...] Socially Integrated (03/28/2024) Received from [facility] Social Connections Do you often [...] abnormality. Rate: 88 BPM Rhythm: Sinus rhythm Mccarr: 81 MA Interval: 148 ms QRS Interval: 82 ms [...] my direction. Stiven Madsen M.D. Emergency Medicine [facility] EMERGENCY ROOM [address] [facility] [phone] Dept: [phone] Stiven Madsen MD 06/05/24 1433 Stiven Madsen MD 06/05/24 1938 E ADJUSTER E ADJUSTER * Jose Ramon Sims, RN - 06/05/2024 [...] WDL Cognitive/Neuro/Behavioral WDL Cognitive/Neuro/Behavioral WDL WDL E ADJUSTER documented in this encounter Plan of Treatment Upcoming Encounters Date Type Department Care Team (Late st Contact Info) Description 07/10/2024 11:30 AM CDT Oncology Visit [facility] [address] [place] [address] Case Samuel MD [address] [place] [address] [address], [address] [place], [place] [phone] documented as of this encounter Goals Goal Patient Goal Type Associated Problems Recent Progress Patient-Stated? Author Pain Management General On track( 025 12:40 PM BRAKE ADJUSTER) Yes Juhi Benson, RN Note: Goal Statement: [...] WITH MUSE ALEXANDRU,JEREMIAS,SHEYLA STAT 06/05/2024 11:40 AM BRAKE ADJUSTER documented in this encounter Results * ECG 12-LEAD WITH MUSE (LHE) (06/05/2024 11:40 AM BRAKE ADJUSTER) Systolic Blood Pressure mmHg RADIOLOGY RESULTS Diastolic Blood Pressure mmHg RADIOLOGY RESULTS Ventricular Rate 88 BPM RAD IOLOGY RESULTS Atrial Rate 88 BPM RADIOLOG Y RESULTS MA Interval 148 ms RADIOLOG Y RESULTS QRS Duration 82 ms RADIOLO GY RESULTS QT 388 ms RADIOLOGY RESULTS QTc 469 ms RADIOLOGY RESULTS P Mccarr 43 degrees RADIOLOGY RESULTS R AXIS 81 degrees RADIOLOGY RESULTS T Mccarr 57 degrees RADIOLOGY RESULTS Interpretation ECG Sinus rhythm Nonspecific T wave abnormality Prolonged QT Abnormal ECG When compared with ECG of 03-Jun-2024 15:24, No significant change was found Confirmed by SEE ED PROVIDER NOTE FOR, ECG INTERPRETATION (4000), greeting card editor Ariadna Shabazz ([id number]) on 06/05/2024 12:02:47 PM RADIOLOGY RESULTS 06/05/2024 11:4 0 AM BRAKE ADJUSTER 06/05/2024 12:02 PM BRAKE ADJUSTER Stiven Madsen MD ECG ORDERABLES Edited Result [...] For 1 dose $Given 06/05/2024 12:40 PM BRAKE ADJUSTER 25 mg heparin lock flush 10 unit/mL [...] for each lumen $Given 06/05/2024 3:20 PM BRAKE ADJUSTER 5 mLs HYDROmorphone (DILAUDID) injection 2 mg 2 mg, Intravenous, EVERY 1 HOUR PRN, moderate pain, severe pain, Starting on Wed06/05/24 at 1153 $Given 06/05/2024 2:56 PM BRAKE ADJUSTER 2 mg $Given 06/05/2024 1:54 PM BRAKE ADJUSTER 2 mg $Given 06/05/2024 12:40 PM BRAKE ADJUSTER 2 mg lactated ringers infusion at 500 mL/hr, Intravenous, CONTINUOUS, Starting on Wed06/05/24 at 1200, Until Wed06/05/24 at 1359 $New Bag 06/05/2024 12:39 PM BRAKE ADJUSTER 500 mL/hr ondansetron (ZOFRAN) injection 8 mg 8 mg, Intravenous, ONCE, Administer over 2-5 Minutes, On Wed06/05/24 at 1200, For 1 dose $Given 06/05/2024 12:39 PM BRAKE ADJUSTER 8 mg documented in this encounter Active and Recently Administered Medications Times are shown in BRAKE ADJUSTER. Scheduled Medication Order 06/03/2024 06/04/2024 06/05/2024 ondansetron (ZOFRAN) injection 8 mg (COMPLETED) 8 mg, Intravenous, ONCE, Administer over 2-5 Minutes, On Wed06/05/24 at 1200, For 1 dose 1239 ($Given - Provi nas: hSane Santos RN) Continuous Medication Order 06/03/2024 06/04/2024 [...] RN) documented in this encounter Care Teams Fuel Dock Attendant Relationship Specialty Start Date End Date No Ref-Primary, Physician PCP - General 03/15/24 06/17/24 Mor Ramsey Medical Student 04/03/24 Case Samuel MD [address] [place] [address] [address], [address] [place] [address] Assigned Pediatric Specialist Provider 05/18/24 Juhi Benson, RN Specialty Spooler Operator Automatic Hematology & Oncology 05/29/24 documented as of this encounter
--- OUTSIDE RECORDS SUMMARY | 2024-06-30 23:56 | XMS_ITS | Encounter Summary ---
Author Organization [facility] Address [address] [place] [address]. [place] [address] Care Team Providers Care Sustainability Director Name Role Phone No Ref-Primary, Physician Primary Care Provider Mor Ramsey Unavailable Unavailable Case Samuel MD Unavailable [phone] Juhi Benson RN Unavailable Unavailable Encounter Details [...] on file Legal Sex Female 8:25 AM BATTERY CHARGER Gender Identity Not on file Sexual Orientation Not on file documented as of this encounter Plan of Treatment Upcoming Encounters Date Type Department Care Team ([facility] st Contact Info) Description 07/10/2024 11:30 AM CDT Oncology Visit [facility] [address] [place] [address] Case Samuel MD [address] [place] [address] [address], [address] [place], [place] [address] documented as of this encounter Goals Goal Patient Goal Type Associated Problems Recent Progress Patient-Stated? Author Pain Management General On track( 025 12:40 PM BATTERY CHARGER) Yes Juhi Benson, RN Note: Goal Statement: [...] Rule Out COVID-19 06/07/2024 06/07/202406/07/2024 12:50 PM BATTERY CHARGER Rule Out COVID-19 06/07/2024 06/07/2024 06/07/2024 3:32 PM BATTERY CHARGER documented as of this encounter Care Teams Sustainability Director Relationship Specialty Start Date End Date No Ref-Primary, Physician PCP - General 03/15/24 06/17/24 Mor Ramsey Medical Student 04/03/24 Case Samuel MD [address] [place] [address] [address], [address] [place] [address] Assigned Pediatric Specialist Provider 05/18/24 Juhi Benson, RN Specialty Fact Checker Hematology & Oncology 05/29/24 documented as of this encounter
--- OUTSIDE RECORDS SUMMARY | 2024-06-30 23:56 | XMS_ITS | Encounter Summary ---
Author Organization [facility] Address [address] [place] [address] Care Team Providers Care Displayer Name Role Phone RoxyElvirac Unavailable Unavailable Case Samuel MD Unavailable [phone] Juhi Benson RN Unavailable Unavailable Veronica Joseph MD Primary Care Provider [phone] Reason for Visit * Reason Comments Sickle Cell Pain Crisis Encounter Details Date Type Department Care Team (Late st Contact Info) Description 06/25/2024 9:50 PM BOTTOM BRUSHER - 06/26/2024 1:11 AM BOTTOM BRUSHER Emergency [facility] Emergency Department [address] [place] [phone] Polly Naylor MD [address] [place], [place] [id number] Marissa Matos MD [address] [place] [address] [id number] Sickle cell disease with crisis (H); Chest [...] in an overnight detention, or couch-surfing.) Yes 06/20/2024 Are you worried [...] on file Legal Sex Female 8:25 AM BOTTOM BRUSHER Gender Identity Not on file Sexual Orientation Not on file documented as of this encounter Last Filed Vital Signs Vital Sign Reading Time Taken Comments Blood Pressure 117/81 06/25/2024 9:46 PM BOTTOM BRUSHER Pulse 104 06/25/2024 9:46 PM BOTTOM BRUSHER Temperature 36.8 C (98.2 F) 06/25/2024 9:46 PM BOTTOM BRUSHER Respiratory Rate 16 06/25/2024 9:46 PM BOTTOM BRUSHER Oxygen Saturation 98% 06/25/2024 9:46 PM BOTTOM BRUSHER Inhaled Oxygen Concentration - - Weight 51 kg (112 lb 6.4 oz) 06/25/2024 9:46 PM BOTTOM BRUSHER Height - - Body Mass Index 21.24 06/24/2024 9:26 AM BOTTOM BRUSHER documented in this encounter Discharge Instructions * Discharge Instructions* Polly Naylor MD - 06/26/2024 12:04 AM BOTTOM BRUSHER You are seen in the emergency department [...] that time. Otherwise, please follow-up with your parts technician as previously planned tomorrow. OM BRUSHER documented in this encounter Medications at Time [...] 05/01/2024 naloxone (NARCAN) 4 MG/0.1ML nasal spray [place] 1 spray (4 mg) into one nostril [...] note were not included. ED Provider Note [facility] EMERGENCY DEPARTMENT ([facility]) 06/25/24 ED PROVIDER NOTE History Chief Complaint [...] she is hoping to get evaluatedby her parts technician. She is missed her hematology appointments for [...] ABD: nondistended, soft, nontender, negative Mason, negative Warren point tenderness EXT: Full range of motion. [...] chest pain Rhythm: normal sinus Rate: normal [place]: normal Ectopy: none Conduction: normal ST Segments/ T Waves: No ST-T wave changes Q Waves: none Comparison to prior: Unchanged Clinical Impression: normal EKG Results for orders placed or performed during the hospital encounter of 06/25/24 XR Chest 2 Views Status: None Narrative EXAM: XR CHEST 2 VIEWS LOCATION: [facility] DATE: 06/25/2024 INDICATION: Chest pain, SSC. COMPARISON: [...] Negative Ketones Urine Negative Negative mg/dL Specific [place] Urine 1.009 1.003 - 1.035 Blood Urine [...] Rate 87 BPM Atrial Rate 87 BPM MD Interval 162 ms QRS Duration 86 ms QT 362 ms QTc 435 ms P [place] 54 degrees R AXIS 84 degrees T [place] 70 degrees Interpretation ECG Sinus rhythm Normal ECG Unconfirmed report - interpretation of this ECG is computer generated - see medical record for final interpretation Confirmed by - EMERGENCY ROOM, PHYSICIAN ([id number]), sound editor Nivia Willson ([id number]) on 06/25/2024 10:56:42 PM CBC with platelets differential Status: Abnormal Narrative The following orders were created for panel order CBC with platelets differential. Procedure Abnormality Status --------- ------ CBC with platelets and d...[[id number]] Abnormal Final result Please view results for these tests on the individual orders. Medications hydromorphone (DILAUDID) injection 2 mg (2 mg Intravenous $Given 06/25/24 858) sodium chloride 0.9% BOLUS 1,000 mL (1,000 [...] Bilirubin Urine Negative Ketones Urine Negative Specific [place] Urine 1.009 Blood Urine Negative pH Urine [...] Chest pain, unspecified type Polly Naylor MD [facility] EMERGENCY DEPARTMENT 06/25/2024 Polly Naylor MD 06/26/24 0006 OM BRUSHER * Juhi Crump RN - 06/25/2024 9:47 [...] obeys commands Best Verbal Response 5-->(V5) oriented [place] Coma Scale Score 15 OM BRUSHER documented in this encounter Plan of Treatment Upcoming Encounters Date Type Department Care Team (Late st Contact Info) Description 07/10/2024 11:30 AM CDT Oncology Visit [facility] [address] [place] [address] Case Samuel MD [address] [facility] [address], [address] [place] [address] documented as of this encounter Goals Goal Patient Goal Type Associated Problems Recent Progress Patient-Stated? Author Pain Management General On track( 025 12:40 PM BOTTOM BRUSHER) Yes Juhi Benson, RN Note: Goal Statement: [...] 2 VIEWS STAT 06/25/2024 10:3 5 PM BOTTOM BRUSHER EKG 12-LEAD, TRACING ONLY STAT 06/25/2024 10:19 PM BOTTOM BRUSHER ROUTINE UA WITH MICROSCOPIC REFLEX TO CULTURE STAT 06/25/2024 10:16 PM BOTTOM BRUSHER CBC WITH PLATELETS AND DIFFERENTIAL STAT 06/25/2024 10:15 PM BOTTOM BRUSHER TROPONIN T, HIGH SENSITIVITY STAT 06/25/2024 10:15 PM BOTTOM BRUSHER CBC WITH PLATELETS & DIFFERENTIAL STAT 06/25/2024 10:15 PM BOTTOM BRUSHER BASIC METABOLIC PANEL STAT 06/25/2024 10:15 PM BOTTOM BRUSHER documented in this encounter Results * XR Chest 2 Views (06/25/2024 10:35 PM BOTTOM BRUSHER) Anatomical Region Laterality Modality Chest Digital Radiogra phy 06/25/2024 10:3 5 PM BOTTOM BRUSHER Impressions 06/25/2024 10:47 PM BOTTOM BRUSHER IMPRESSION: Bilateral portacatheter with tips in the SVC. Mild low lung volumes. Heart size and pulmonary vascularity stable at the upper limits of normal. Mild patchy right middle lobe infiltrate or atelectasis. Narrative 06/25/2024 10:47 PM BOTTOM BRUSHER EXAM: XR CHEST 2 VIEWS LOCATION: [facility] DATE: 06/25/2024 INDICATION: Chest pain, SSC. COMPARISON: 06/16/2024. Procedure Note Jayden Correa MD - 06/25/2024 EXAM: XR CHEST 2 VIEWS LOCATION: [facility] DATE: 06/25/2024 INDICATION: Chest pain, SSC. COMPARISON: 06/16/2024. IMPRESSION: Bilateral portacatheter with tips in the SVC. Mild low lungvolumes. Heart size and pulmonary vascularity stable at the upper limitsof normal. Mild patchy right middle lobe infiltrate or atelectasis. Polly Naylor MD IMG DIAGNOSTIC IMAGING ORDERABLE S Final Result * EKG 12-lead, tracing only (06/25/2024 10:19 PM BOTTOM BRUSHER) Systolic Blood Pressure mmHg RADIOLOGY RESULTS Diastolic Blood Pressure mmHg RADIOLOGY RESULTS Ventricular Rate 87 BPM RAD IOLOGY RESULTS Atrial Rate 87 BPM RADIOLOG Y RESULTS MD Interval 162 ms RADIOLOG Y RESULTS QRS Duration 86 ms RADIOLO GY RESULTS QT 362 ms RADIOLOGY RESULTS QTc 435 ms RADIOLOGY RESULTS P [place] 54 degrees RADIOLOGY RESULTS R AXIS 84 degrees RADIOLOGY RESULTS T [place] 70 degrees RADIOLOGY RESULTS Interpretation ECG Sinus rhythm Normal ECG Unconfirmed report - interpretation of this ECG is computer generated - see medical record for final interpretation Confirmed by - EMERGENCY ROOM, PHYSICIAN ([id number]), sound editor Nivia Willson ([id number]) on 06/25/2024 10:56:42 PM RADIOLOGY RESULTS 06/25/2024 10:1 9 PM BOTTOM BRUSHER 06/25/2024 10:56 PM BOTTOM BRUSHER Polly Naylor MD ECG ORDERABLES Edited Result - Final RADIOLOGY RESULTS * (ABNORMAL) UA with Microscopic reflex to Culture (06/25/2024 10:16 PM BOTTOM BRUSHER) Color Urine Light Yellow Colorless, Straw, Light Yellow, Yellow 06/25/2024 10:33 PM BOTTOM BRUSHER [facility] Appearance Urine Clear Clear 06/26/19 10:33 PM BOTTOM BRUSHER [facility] Glucose Urine Negative Negative mg/dL 06/25/2024 10:33 PM BOTTOM BRUSHER [facility] Bilirubin Urine Negative Negative 10:33 PM BOTTOM BRUSHER [facility] Ketones Urine Negative Negative mg/dL 06/25/2024 10:33 PM BOTTOM BRUSHER [facility] Specific [place] Urine 1.009 1.003 - 1.035 06/25/2024 10:33 PM BOTTOM BRUSHER [facility] Blood Urine Negative Negative 06/25/2024 10:33 PM BOTTOM BRUSHER [facility] pH Urine 7.5(H) 5.0 - 7.0 06/25/2024 10:33 PM BOTTOM BRUSHER [facility] Protein Albumin Urine Negative Negative mg/dL 06/25/2024 10:33 PM BOTTOM BRUSHER [facility] Urobilinogen Urine Normal Normal, 2.0 mg/dL 06/25/2024 10:33 PM BOTTOM BRUSHER [facility] Nitrite Urine Negative Negative 06/25/2024 10:33 PM BOTTOM BRUSHER [facility] Leukocyte Esterase Urine Negative Negative 06/25/2024 10:33 PM BOTTOM BRUSHER [facility] RBC Urine 0 <=2 /HPF 06/25/2024 10:33 PM BOTTOM BRUSHER [facility] WBC Urine 0 <=5 /HPF 06/25/2024 10:33 PM BOTTOM BRUSHER [facility] Squamous Epithelials Urine 2(H) <=1 /HPF 06/25/2024 10:33 PM BOTTOM BRUSHER [facility] Urine URINE SPECIMEN OBTAINED BY CLEAN CATCH PROCEDURE / Unknown Non-blood Collection / Unknown 06/25/2024 10:16 PM BOTTOM BRUSHER 06/25/2024 10:23 PM BOTTOM BRUSHER Narrative [facility] - 06/25/2024 10:33 PM BOTTOM BRUSHER Urine Culture not indicated us Polly Naylor MD LAB - URINE ORDERABLES Final Res ult [facility] [address] [facility], [address] [place] [phone] * (ABNORMAL) CBC with platelets and differential (06/25/2024 10:15 PM BOTTOM BRUSHER) WBC Count 12.5(H) 4.0 - 11.0 10e3/uL 06/25/2024 10:30 PM BOTTOM BRUSHER [facility] RBC Count 2.32(L) 3.80 - 5.20 10e6/uL 06/25/2024 10:30 PM BOTTOM BRUSHER [facility] Hemoglobin 7.8(L) 11.7 - 15.7 g/dL 06/25/2024 10:30 PM BOTTOM BRUSHER [facility] Hematocrit 22.7(L) 35.0 - 47.0 % 06/25/2024 10:30 PM BOTTOM BRUSHER [facility] MCV 98 78 - 100 fL 06/25/2024 10:30 PM BOTTOM BRUSHER [facility] MCH 33.6(H) 26.5 - 33.0 pg 06/25/2024 10:30 PM BOTTOM BRUSHER [facility] MCHC 34.4 31.5 - 36.5 g/dL 06/25/2024 10:30 PM BOTTOM BRUSHER [facility] RDW 19.2(H) 10.0 - 15.0 % 06/25/2024 10:30 PM BOTTOM BRUSHER [facility] Platelet Count 451(H) 150 - 450 10e3/uL 06/25/2024 10:30 PM BOTTOM BRUSHER [facility] % Neutrophils 48 % 06/25/2024 10:30 PM BOTTOM BRUSHER [facility] % Lymphocytes 39 % 06/25/2024 10:30 PM BOTTOM BRUSHER [facility] % Monocytes 10 % 06/25/2024 10:30 PM BOTTOM BRUSHER [facility] % Eosinophils 2 % 06/25/2024 10:30 PM BOTTOM BRUSHER [facility] % Basophils 1 % 06/25/2024 10:30 PM BOTTOM BRUSHER [facility] % Immature Granulocytes 1 % 06/25/2024 10:30 PM BOTTOM BRUSHER [facility] NRBCs per 100 WBC 1(H) <1 /100 025 10:30 PM BOTTOM BRUSHER [facility] Absolute Neutrophils 6.0 1.6 - 8.3 10e3/uL 06/25/2024 10:30 PM BOTTOM BRUSHER [facility] Absolute Lymphocytes 4.8 0.8 - 5.3 10e3/uL 06/25/2024 10:30 PM BOTTOM BRUSHER [facility] Absolute Monocytes 1.2 0.0 - 1.3 10e3/uL 06/25/2024 10:30 PM BOTTOM BRUSHER [facility] Absolute Eosinophils 0.2 0.0 - 0.7 10e3/uL 06/25/2024 10:30 PM BOTTOM BRUSHER [facility] Absolute Basophils 0.1 0.0 - 0.2 10e3/uL 06/25/2024 10:30 PM BOTTOM BRUSHER [facility] Absolute Immature Granulocytes 0.1 <=0.4 10e3/uL 06/25/2024 10:30 PM BOTTOM BRUSHER [facility] Absolute NRBCs 0.2 10e3/uL 06/25/2024 10:30 PM BOTTOM BRUSHER [facility] Blood BLOOD SPECIMEN / Unknown IVAD (Port) / Unknown 06/25/2024 10:15 PM BOTTOM BRUSHER 06/25/2024 10:24 PM BOTTOM BRUSHER Polly Naylor MD LAB - BLOOD ORDERABLES Final Res ult LABORATORY [facility] [address] [facility], [address] [phone] * Troponin T, High Sensitivity (06/25/2024 10:15 PM BOTTOM BRUSHER) [facility] Troponin T, High Sensitivity <6 <=14 ng/L 06/25/2024 10:51 PM BOTTOM BRUSHER [facility] Comment: Either a High Sensitivity [...] IVAD (Port) / Unknown 06/25/2024 10:15 PM BOTTOM BRUSHER 06/25/2024 10:24 PM BOTTOM BRUSHER us Polly Naylor MD LAB - BLOOD ORDERABLES Final Res ult U [facility]ATORY [facility] [address] [facility], [address] [phone] * (ABNORMAL) Basic metabolic panel (06/25/2024 10:15 PM BOTTOM BRUSHER) Sodium 137 135 - 145 mmol/L 06/25/2024 10:51 PM BOTTOM BRUSHER [facility] Potassium 3.7 3.4 - 5.3 mmol/L 06/25/2024 10:51 PM BOTTOM BRUSHER [facility] Chloride 107 98 - 107 mmol/L 06/25/2024 10:51 PM BOTTOM BRUSHER [facility] Carbon Dioxide (CO2) 22 22 - 29 mmol/L 06/25/2024 10:51 PM BOTTOM BRUSHER [facility] Anion Gap 8 7 - 15 mmol/L 06/25/2024 10:51 PM BOTTOM BRUSHER [facility] Urea Nitrogen 6.7 6.0 - 20.0 mg/dL 06/25/2024 10:51 PM BOTTOM BRUSHER [facility] Creatinine 0.69 0.51 - 0.95 mg/dL 06/25/2024 10:51 PM BOTTOM BRUSHER [facility] GFR Estimate >90 >60 mL/min/1.7 3m2 06/25/2024 10:51 PM BOTTOM BRUSHER [facility] Comment:eGFR calculated us2020 CKD-EPI equation. Calcium 8.7(L) 8.8 - 10.4 mg/dL 06/25/2024 10:51 PM BOTTOM BRUSHER [facility] Glucose 87 70 - 99 mg/dL 06/25/2024 10:51 PM BOTTOM BRUSHER [facility] Blood BLOOD SPECIMEN / Unknown IVAD (Port) / Unknown 06/25/2024 10:15 PM BOTTOM BRUSHER 06/25/2024 10:24 PM BOTTOM BRUSHER us Polly Naylor MD LAB - BLOOD ORDERABLES Final Res ult [facility] [address] [facility], [address] [place] [address] documented in this encounter Visit [...] For 1 dose $Given 06/25/2024 10:39 PM BOTTOM BRUSHER 25 mg heparin lock flush 100 unit/mL [...] each port lumen $Given 06/26/2024 12:55 AM BOTTOM BRUSHER 5 mLs hydromorphone (DILAUDID) injection 2 mg 2 mg, Intravenous, EVERY 1 HOUR PRN, severe pain, moderate pain, Starting on Wed06/25/24 at 2151, For 3 doses $Given 06/26/2024 12:37 AM BOTTOM BRUSHER 2 mg $Given 06/25/2024 11:42 PM BOTTOM BRUSHER 2 mg $Given 06/25/2024 10:36 PM BOTTOM BRUSHER 2 mg ondansetron (ZOFRAN) injection 8 mg 8 mg, Intravenous, ONCE, Administer over 2-5 Minutes, On [place] 06/25/24 at 2155, For 1 dose $Given 06/25/2024 10:38 PM BOTTOM BRUSHER 8 mg sodium chloride 0.9% BOLUS 1,000 mL Intravenous, 1,000 mL, ONCE, at 500 mL/hr, Administer over 2 Hours, On Wed06/25/24 at 2205, For 1 dose $New Bag 06/25/2024 10:18 PM BOTTOM BRUSHER 1,000 mLs 500 mL/hr documented in this encounter Active and Recently Administered Medications Times are shown in BOTTOM BRUSHER. Scheduled Medication Order 06/24/2024 06/25/2024 06/26/2024 diphenhydrAMINE (BENADRYL) capsule 25 mg (COMPLETED) 25 mg, Oral, ONCE, On [place] 06/25/24 at 2155, For 1 dose 2238 [...] RN) documented in this encounter Care Teams Displayer Relationship Specialty Start Date End Date Veronica Joseph MD [address] [place] [address] PCP - General Family Medicine 06/18/24 Mor Ramsey Medical Student 04/03/24 Case Samuel MD [address] [place] [address] [address], [address] [place] [address] Assigned Pediatric Specialist Provider 05/18/24 Juhi Benson, RN Specialty Music Professor Hematology & Oncology 05/29/24 documented as of this encounter
--- OUTSIDE RECORDS SUMMARY | 2024-06-30 23:56 | XMS_ITS | Encounter Summary ---
Author Organization [facility] Address [address] [place] [address]. [place] [address] Care Team Providers Care Stonework Tracer Name Role Phone No Ref-Primary, Physician Primary Care Provider Mor Ramsey Unavailable Unavailable Case Samuel MD Unavailable [phone] Juhi Benson RN Unavailable Unavailable Encounter Details [...] on file Legal Sex Female 8:25 AM CHEMISTRY QUALITY CONTROL TECHNICIAN Gender Identity Not on file Sexual Orientation Not on file documented as of this encounter Plan of Treatment Upcoming Encounters Date Type Department Care Team (Late st Contact Info) Description 07/10/2024 11:30 AM CDT Oncology Visit [facility] [address] [place] [address] Case Samuel MD [address] [place] [address] [address], [address] [place] [address] documented as of this encounter Goals Goal Patient Goal Type Associated Problems Recent Progress Patient-Stated? Author Pain Management General On track( 025 12:40 PM CHEMISTRY QUALITY CONTROL TECHNICIAN) Yes Juhi Benson, RN Note: Goal [...] on filedocumented in this encounter Care Teams Stonework Tracer Relationship Specialty Start Date End Date No Ref-Primary, Physician PCP - General 03/15/24 06/17/24 Mor Ramsey Medical Student 04/03/24 Case Samuel MD [address] [place] [address] 484, [address] [place] [address] Assigned Pediatric Specialist Provider 05/18/24 Juhi Benson, RN Specialty Estimator Printing Plate Making Hematology & Oncology 05/29/24 documented as of this encounter
--- OUTSIDE RECORDS SUMMARY | 2024-06-30 23:56 | XMS_ITS | Encounter Summary ---
Author Organization [facility] Address [address] [place] [address] Care Team Providers Care Switchbox Assembler Name Role Phone No Ref-Primary, Physician Primary Care Provider Mor Ramsey Unavailable Unavailable Case Samuel MD Unavailable [phone] Juhi Benson RN Unavailable Unavailable Reason for Visit * Reason Comments Sickle Cell Pain Crisis Encounter Details Date Type Department Care Team (Late st Contact Info) Description 06/06/2024 9:41 AM CUSTOMER SUPPORT ENGINEER - 06/06/2024 1:29 PM [facility] Emergency [facility] Emergency Room [facility] [place] [address] Marilia Summers MD [address] [place] [address] Sickle cell pain crisis (H) Discharge Disposition: [...] on file Legal Sex Female 8:25 AM CUSTOMER SUPPORT ENGINEER Gender Identity Not on file Sexual Orientation Not on file documented as of this encounter Last Filed Vital Signs Vital Sign Reading Time Taken Comments Blood Pressure 122/82 06/06/2024 1:00 PM CUSTOMER SUPPORT ENGINEER Pulse 77 06/06/2024 1:00 PM CUSTOMER SUPPORT ENGINEER Temperature 36.9 C (98.5 F) 06/06/2024 9:33 AM CUSTOMER SUPPORT ENGINEER Respiratory Rate 17 06/06/2024 9:33 AM CUSTOMER SUPPORT ENGINEER Oxygen Saturation 98% 06/06/2024 1:00 PM CUSTOMER SUPPORT ENGINEER Inhaled Oxygen Concentration - - Weight 52.2 kg (115 lb) 06/06/2024 9:33 AM CUSTOMER SUPPORT ENGINEER Height 154.9 cm (5' 1) 06/06/2024 9:33 AM CUSTOMER SUPPORT ENGINEER Body Mass Index 21.73 06/06/2024 9:33 AM CUSTOMER SUPPORT ENGINEER documented in this encounter Discharge Instructions * Discharge Instructions* Marilia Summers MD - 06/06/2024 12:48 PM CUSTOMER SUPPORT ENGINEER With the amount of hydromorphone that you [...] work on your care plan with your photocomposition keyboard operator to see if they would be agreeable to getting you an appointment with pain clinic even while you are waiting to start the plasmapheresis to work a bit more on a home pain regimen for you. Continue to follow your care plan discussed with your photocomposition keyboard operator to treat your sickle cell pain crisis. Your next dose of dilaudid should not be before 2:30 pm. OMER SUPPORT ENGINEER OMER SUPPORT ENGINEER * Attachments The following attachments cannot be sent through Care Everywhere. * Naloxone Nasal Golden (NALOXONE SPRAY - NASAL) (Austrian) * Drug Overdose: Opioid (Austrian) documented in this encounter Medications at Time [...] 05/01/2024 naloxone (NARCAN) 4 MG/0.1ML nasal spray Golden 1 spray (4 mg) into one nostril [...] WDL WDL Cognitive/Neuro/Behavioral WDL Cognitive/Neuro/Behavioral WDL WDL OMER SUPPORT ENGINEER * Marilia Summers MD - 06/06/2024 9:34 [...] our physician who is working with her photocomposition keyboard operator for the care plan. Per the [...] plans and they will talk with her photocomposition keyboard operator about the request for the patient to [...] medical secretary teacher Hattie and our security orderly Augusto just saw the patient to get into the straddle truck driver seat and drive away after being told specifically that she cannot drive and that she had told us that her significant other was driving in to pick herup. 1328 Our security did have her on video (as record label intern concerned she did not get into [...] Prescriptions NALOXONE (NARCAN) 4 MG/0.1ML NASAL SPRAY Golden 1 spray (4 mg) into one nostril [...] has been evaluated multiple times since in [place] and although she has a remote history [...] than previous suspect she was slightly dehydrated. [facility] Documentation Medical Decision Making Obtained [...] with other provider:Did you involve another provider (excellence consultant, , pharmacy, etc.)?: No Discharge.continue current [...] 06/06/24 1257 Marilia Summers MD 06/06/24 1330 OMER SUPPORT ENGINEER OMER SUPPORT ENGINEER OMER SUPPORT ENGINEER documented in this encounter Plan of Treatment Upcoming Encounters Date Type Department Care Team (Late st Contact Info) Description 07/10/2024 11:30 AM CDT Oncology Visit [facility] [address] [place] [address] Case Samuel MD [address] [place] [address] [address], [address] [place], [place] [address] documented as of this encounter Goals Goal Patient Goal Type Associated Problems Recent Progress Patient-Stated? Author Pain Management General On track( 025 12:40 PM CUSTOMER SUPPORT ENGINEER) Yes Juhi Benson RN Note: Goal [...] For 1 dose $Given 06/06/2024 10:22 AM CUSTOMER SUPPORT ENGINEER 50 mg heparin lock flush 10 [...] each port lumen $Given 06/06/2024 1:13 PM CUSTOMER SUPPORT ENGINEER 5 mLs HYDROmorphone (DILAUDID) injection 2 mg 2 mg, Intravenous, EVERY 1 HOUR PRN, moderate pain, Starting on Wed06/06/24 at 0958, For 2 doses $Given 06/06/2024 11:31 AM CUSTOMER SUPPORT ENGINEER 2 mg $Given 06/06/2024 10:22 AM CUSTOMER SUPPORT ENGINEER 1 mg HYDROmorphone (DILAUDID) injection 2 mg 2 mg, Intravenous, ONCE, On Wed06/06/24 at 1300, For 1 dose $Given 06/06/2024 12:57 PM CUSTOMER SUPPORT ENGINEER 2 mg lactated ringers BOLUS 1,000 mL Intravenous, 1,000 mL, ONCE, On Wed06/06/24 at 1000, For 1 dose $New Bag 06/06/2024 10:12 AM CUSTOMER SUPPORT ENGINEER 1,000 mLs sodium chloride (PF) 0.9% PF [...] Recently Administered Medications Times are shown in CUSTOMER SUPPORT ENGINEER. Scheduled Medication Order 06/04/2024 06/05/2024 06/06/2024 heparin [...] lumen documented in this encounter Care Teams Switchbox Assembler Relationship Specialty Start Date End Date No Ref-Primary, Physician PCP - General 03/15/24 06/17/24 Mor Ramsey Medical Student 04/03/24 Case Samuel MD [address] [place] [address] [address], [address] [place] [address] Assigned Pediatric Specialist Provider 05/18/24 Juhi Benson, RN Specialty Body Builder Apprentice Hematology & Oncology 05/29/24 documented as of this encounter
--- OUTSIDE RECORDS SUMMARY | 2024-06-30 23:56 | XMS_ITS | Encounter Summary ---
Author Organization [facility] Address [address] [place] [address]. [place] [address] Care Team Providers Care Car Whacker Name Role Phone No Ref-Primary, Physician Primary Care Provider Mor Ramsey Unavailable Unavailable Case Samuel MD Unavailable [phone] Juhi Benson RN Unavailable Unavailable Reason for Visit * Reason Comments Infusion IVF + pain medicatio n Encounter Details Date Type Department Care Team (Late st Contact Info) Description 06/07/2024 1:30 PM GARMENT FORM ASSEMBLER Infusion Therapy Visit [facility] [address] [place] [address] Case Samuel MD [address] [place] [address] 484, [address] [place], [place] [address] Fever (Primary Dx); Sickle cell pain crisis [...] on file Legal Sex Female 8:25 AM GARMENT FORM ASSEMBLER Gender Identity Not on file Sexual Orientation Not on file documented as of this encounter Last Filed Vital Signs Vital Sign Reading Time Taken Comments Blood Pressure 119/76 06/07/2024 3:43 PM GARMENT FORM ASSEMBLER Pulse 72 06/07/2024 3:43 PM GARMENT FORM ASSEMBLER Temperature 37 C (98.6 F) 06/07/2024 1:35 PM GARMENT FORM ASSEMBLER Respiratory Rate 16 06/07/2024 1:35 PM GARMENT FORM ASSEMBLER Oxygen Saturation 99% 06/07/2024 3:43 PM GARMENT FORM ASSEMBLER Inhaled Oxygen Concentration - - Weight - - Height - - Body Mass Index - - documented in this encounter Patient Instructions * Patient Instructions* Tyson Hess RN - 06/07/2024 1:30 PM GARMENT FORM ASSEMBLER Dear Gianna Hernández Thank you for choosing [facility] ([facility]) for your infusion. The following information is a summary of our appointment as well as important reminders. If you have any questions on your upcoming Specialty Infusion appointments, please call scheduling at [phone]. It was a pleasure taking care of you today. Sincerely, [facility] [address] [place] [address] ENT FORM ASSEMBLER documented in this encounter Progress Notes * Tyson Hess RN - 06/07/2024 1:30 PM CST Infusion Nursing Note: Gianna Hernández presents today for IV infusion; IVF + pain medication. Patient seen by provider today: No Healthcare Consulting Manager present during visit today: Not Applicable. Note: [...] self. Departure Mode: Ambulatory. Tyson Hess RN ENT FORM ASSEMBLER documented in this encounter Plan of Treatment Upcoming Encounters Date Type Department Care Team (Late st Contact Info) Description 07/10/2024 11:30 AM CDT Oncology Visit [facility] [address] [place] [address] Case Samuel MD [address] [place] [address] 484, [address] [place] [address] documented as of this encounter Goals Goal Patient Goal Type Associated Problems Recent Progress Patient-Stated? Author Pain Management General On track( 025 12:40 PM GARMENT FORM ASSEMBLER) Yes Juhi Benson, RN Note: Goal [...] AND PLATELET MORPHOLOGY Routine 06/07/2024 1:15 PM GARMENT FORM ASSEMBLER Sickle cell pain crisis (H) CBC WITH PLATELETS AND DIFFERENTIAL Routine 06/07/2024 1:15 PM GARMENT FORM ASSEMBLER Sickle cell pain crisis (H) INFLUENZA A/B, RSV AND SARS-COV2 PCR Routine 06/07/2024 1:15 PM GARMENT FORM ASSEMBLER Fever CBC WITH PLATELETS & DIFFERENTIAL Routine 06/07/2024 1:15 PM GARMENT FORM ASSEMBLER Sickle cell pain crisis (H) BASIC METABOLIC PANEL Routine 06/07/2024 1:15 PM GARMENT FORM ASSEMBLER Sickle cell pain crisis (H) documented in this encounter Results * (ABNORMAL) RBC and Platelet Morphology (06/07/2024 1:15 PM GARMENT FORM ASSEMBLER) RBC Morphology Confirmed RBC Indices 06/07/2024 2:06 PM GARMENT FORM ASSEMBLER [facility] Platelet Assessment Automated Count Confirmed. Platelet morphology is normal. Automated Count Confirmed. Platelet morphology is normal. 06/07/2024 2:06 PM GARMENT FORM ASSEMBLER [facility] Ziegler-Ord Bodies Present(A) None Seen 06/07/2024 2:06 PM GARMENT FORM ASSEMBLER [facility] Polychromasia Slight(A) None Seen 06/07/2024 2:06 PM GARMENT FORM ASSEMBLER [facility] Sickle Cells Moderate(A) None Seen 06/07/2024 2:06 PM GARMENT FORM ASSEMBLER [facility] Target Cells Slight(A) None Seen 06/07/2024 2:06 PM GARMENT FORM ASSEMBLER [facility] Teardrop Cells Slight(A) None Seen 06/07/2024 2:06 PM GARMENT FORM ASSEMBLER [facility] Blood BLOOD SPECIMEN / Unknown IVAD (Port) / Unknown 06/07/2024 1:15 PM GARMENT FORM ASSEMBLER 06/07/2024 1:35 PM GARMENT FORM ASSEMBLER Case Samuel MD LAB - BLOOD ORDERABLES Fi nal Result [facility] [address] 1st [place] [address] * Influenza A/B, RSV and SARS-CoV2 PCR (COVID-19) Nasopharyngeal (06/07/2024 1:15 PM GARMENT FORM ASSEMBLER) Pathologist [facility] Influenza A PCR Negative Negative 06/07/2024 3:32 PM GARMENT FORM ASSEMBLER [facility] Influenza B PCR Negative Negative 06/07/2024 3:32 PM GARMENT FORM ASSEMBLER [facility] RSV PCR Negative Negative 06/07/2024 3:32 PM GARMENT FORM ASSEMBLER [facility] SARS CoV2 PCR Negative Negative 06/07/2024 3:32 PM GARMENT FORM ASSEMBLER [facility] Comment:NEGATIVE: SARS-CoV-2 (COVID-19) RNA not detected, presumed negative. Swab NASOPHARYNGEAL STRUCTURE / Unknown Non-blood Collection / Unknown 06/07/2024 1:15 PM GARMENT FORM ASSEMBLER 06/07/2024 1:36 PM GARMENT FORM ASSEMBLER Narrative [facility] - 06/07/2024 3:32 PM GARMENT FORM ASSEMBLER Testing was performed using the Xpert Xpress CoV2/Flu/RSV Assay on the [employer] GeneXpert Instrument. This test should be ordered [...] management. This test was validated by the [facility]. These laboratories are certified under the Clinical Laboratory Improvement Amendments of 1988 (CLIA-88) as qualified to perfom high complexity laboratory testing. us Case Samuel MD LAB - MICRO GENERAL ORDER SYD Final Result [facility] Inf. Diseases Diag. Lab [address] [facility], [address] [place] [id number] * (ABNORMAL) CBC with platelets and differential (06/07/2024 1:15 PM GARMENT FORM ASSEMBLER) WBC Count 13.7(H) 4.0 - 11.0 10e3/uL 06/07/2024 2:06 PM GARMENT FORM ASSEMBLER [facility] RBC Count 2.80(L) 3.80 - 5.20 10e6/uL 06/07/2024 2:[address] [facility] Hemoglobin 8.8(L) 11.7 - 15.7 g/dL 06/07/2024 2:[address] [facility] Hematocrit 25.3(L) 35.0 - 47.0 % 06/07/2024 2:[address] [facility] MCV 90 78 - 100 fL 06/07/2024 2:[address] [facility] MCH 31.4 26.5 - 33.0 pg 06/07/2024 2:[address] [facility] MCHC 34.8 31.5 - 36.5 g/dL 06/07/2024 2:[address] [facility] RDW 19.4(H) 10.0 - 15.0 % 06/07/2024 2:[address] [facility] Platelet Count 516(H) 150 - 450 10e3/uL 06/07/2024 2:[address] [facility] % Neutrophils 67 % 06/07/2024 2:[address] [facility] % Lymphocytes 20 % 06/07/2024 2:[address] [facility] % Monocytes 11 % 06/07/2024 2:[address] [facility] % Eosinophils 1 % 06/07/2024 2:[address] [facility] % Basophils 1 % 06/07/2024 2:[address] [facility] % Immature Granulocytes 0 % 06/07/2024 2:[address] [facility] NRBCs per 100 WBC 1(H) <1 /100 025 2:[address] [facility] Absolute Neutrophils 9.2(H) 1.6 - 8.3 10e3/uL 06/07/2024 2:[address] [facility] Absolute Lymphocytes 2.7 0.8 - 5.3 10e3/uL 06/07/2024 2:[address] [facility] Absolute Monocytes 1.5(H) 0.0 - 1.3 10e3/uL 06/07/2024 2:[address] [facility] Absolute Eosinophils 0.1 0.0 - 0.7 10e3/uL 06/07/2024 2:[address] [facility] Absolute Basophils 0.2 0.0 - 0.2 10e3/uL 06/07/2024 2:[address] [facility] Absolute Immature Granulocytes 0.1 <=0.4 10e3/uL 06/07/2024 2:[address] [facility] Absolute NRBCs 0.1 10e3/uL 06/07/2024 2:[address] [facility] Blood BLOOD SPECIMEN / Unknown IVAD (Port) / Unknown 06/07/2024 1:15 PM GARMENT FORM ASSEMBLER 06/07/2024 1:35 PM GARMENT FORM ASSEMBLER us Case Samuel MD LAB - BLOOD ORDERABLES Fi nal Result [facility] [place] - [address] 1st [place] [address] * (ABNORMAL) Basic metabolic panel (06/07/2024 1:15 PM GARMENT FORM ASSEMBLER) Sodium 139 135 - 145 mmol/L 06/07/2024 2:11 PM GARMENT FORM ASSEMBLER [facility] Potassium 4.4 3.4 - 5.3 mmol/L 06/07/2024 2:11 PM GARMENT FORM ASSEMBLER [facility] Chloride 109(H) 98 - 107 mmol/L 06/07/2024 2:11 PM GARMENT FORM ASSEMBLER [facility] Carbon Dioxide (CO2) 22 22 - 29 mmol/L 06/07/2024 2:11 PM GARMENT FORM ASSEMBLER [facility] Anion Gap 8 7 - 15 mmol/L 06/07/2024 2:[address] [facility] Urea Nitrogen 7.4 6.0 - 20.0 mg/dL 06/07/2024 2:[address] [facility] Creatinine 0.66 0.51 - 0.95 mg/dL 06/07/2024 2:11 PM GARMENT FORM ASSEMBLER [facility] GFR Estimate >90 >60 mL/min/1.7 3m2 06/07/2024 2:[address] [facility] Comment:eGFR calculated usin 2020 CKD-EPI equation. Calcium 9.3 8.8 - 10.4 mg/dL 06/07/2024 2:[address] [facility] Glucose 98 70 - 99 mg/dL 06/07/2024 2:[address] [facility] Blood BLOOD SPECIMEN / Unknown IVAD (Port) / Unknown 06/07/2024 1:15 PM GARMENT FORM ASSEMBLER 06/07/2024 1:35 PM GARMENT FORM ASSEMBLER us Case Samuel MD LAB - BLOOD ORDERABLES Fi nal Result Performing Organization Address [facility]/State/ZIP Co de Phone Number [facility] [address] 1st [place] [address] documented in this encounter Visit Diagnoses Diagnosis [...] pain crisis (H) $Given 06/07/2024 3:41 PM GARMENT FORM ASSEMBLER 5 mLs HYDROmorphone (DILAUDID) injection 2 mg 2 mg, Intravenous, EVERY 1 HOUR PRN, severe pain, moderate pain, Starting on Wed06/07/24 at 1309, For 3 dosesIndications:Sickle cell pain crisis (H) $Given 06/07/2024 3:28 PM GARMENT FORM ASSEMBLER 2 mg $Given 06/07/2024 2:30 PM GARMENT FORM ASSEMBLER 2 mg $Given 06/07/2024 1:37 PM GARMENT FORM ASSEMBLER 2 mg lactated ringers BOLUS 1,000 mL Intravenous, 1,000 mL, ONCE, at 500 mL/hr, Administer over 2 Hours, On Wed06/07/24 at 1315, For 1 doseIndications:Sickle cell pain crisis (H) $New Bag 06/07/2024 1:37 PM GARMENT FORM ASSEMBLER 1,000 mLs 500 mL/hr documented in this encounter Additional Health Concerns Infection Onset Date Last Indicated Resolved Time Rule Out COVID-19 06/07/2024 06/07/2024 06/07/2024 3:32 PM GARMENT FORM ASSEMBLER documented as of this encounter Care Teams Car Whacker Relationship Specialty Start Date End Date No Ref-Primary, Physician PCP - General 03/15/24 06/17/24 Mor Ramsey Medical Student 04/03/24 Case Samuel MD [address] [place] [address], [address] [place] [address] Assigned Pediatric Specialist Provider 05/18/24 Marcelino, Juhi, RN Specialty Senior Risk Manager Hematology & Oncology 05/29/24 documented as of this encounter
--- OUTSIDE RECORDS SUMMARY | 2024-06-30 23:56 | XMS_ITS | Encounter Summary ---
Author Organization [facility] Address [address] [place] [address]. [place] [address] Care Team Providers Care Chairperson Anesthesiology Name Role Phone No Ref-Primary, Physician Primary Care Provider Mor Ramsey Unavailable Unavailable Csae Samuel MD Unavailable [phone] Juhi Benson RN Unavailable Unavailable Reason for Visit * Reason Comments Sickle Cell Pain Crisis Encounter Details Date Type Department Care Team (Late st Contact Info) Description 06/07/2024 10:00 AM DATA ENTRY ASSISTANT - 06/07/2024 10:45 AM [facility] Emergency [facility] Emergency Room [facility] [place] [address] Bernabe Farley MD [facility] [address] [place] [address] Chest pain, unspecified type; Fever, unspecified fever [...] file Legal Sex Female 8:25 AM DATA ENTRY ASSISTANT Gender Identity Not on file Sexual Orientation Not on file documented as of this encounter Last Filed Vital Signs Vital Sign Reading Time Taken Comments Blood Pressure 108/63 06/07/2024 9:59 AM DATA ENTRY ASSISTANT Pulse 84 06/07/2024 9:59 AM DATA ENTRY ASSISTANT Temperature 36.6 C (97.9 F) 06/07/2024 9:59 AM DATA ENTRY ASSISTANT Respiratory Rate 19 06/07/2024 9:59 AM DATA ENTRY ASSISTANT Oxygen Saturation 100% 06/07/2024 9:59 AM DATA ENTRY ASSISTANT Inhaled Oxygen Concentration - - Weight 52.2 kg (115 lb) 06/07/2024 9:59 AM DATA ENTRY ASSISTANT Height - - Body Mass Index 21.73 06/06/2024 9:33 AM DATA ENTRY ASSISTANT documented in this encounter Medications at Time [...] 05/01/2024 naloxone (NARCAN) 4 MG/0.1ML nasal spray Smilax 1 spray (4 mg) into one nostril [...] did not want to wait for a courtesy van driver so she would like to leave at this time. MD and charge informed. ENTRY ASSISTANT * Bernabe Farley MD - 06/07/2024 10:04 [...] she unfortunately left by car as the courtesy van driver after stating to staff that she [...] left. Additional ED Course timestamps entered by site medical director: 10:12 AM I met with the patient [...] at this time. Per Chart Review: 06/06/24, [facility] ED: Patient presented for sickle [...] our physician who is working with her custom clothier for the care plan. Per the patient [...] she shows signs of opiate overdose. Our secretary book keeper Hattie and our mobile security architect Jagdeep both just saw the patient to get into the courtesy van driver seat and drive away after being [...] my direction. Bernabe Farley M.D. Emergency Medicine [facility] EMERGENCY ROOM [address] [facility] [id number] Dept: [phone] Bernabe Farley MD 06/07/24 1045 ENTRY ASSISTANT * Yanely Avendano RN - 06/07/2024 10:04 AM CST Pt here in sickle cell crisis for the 3rd day. Yesterday she received a lot of IV dilaudid and then drove home after told not to. Upon arrival here she repeatedly told this securities underwriter she was dropped off but after reviewing the security camera she is clearly driving in and getting out of the courtesy van driver seat. Provider notified. Reports chest pain today. Last dose of oral was 2 hours ago. Triage Assessment (Adult) Row Name 06/07/24 0959 Triage Assessment Airway WDL WDL Respiratory WDL Respiratory WDL WDL Skin Circulation/Temperature WDL Skin Circulation/Temperature WDL WDL Cardiac WDL Cardiac WDL WDL Peripheral/Neurovascular WDL Peripheral Neurovascular WDL WDL Cognitive/Neuro/Behavioral WDL Cognitive/Neuro/Behavioral WDL WDL ENTRY ASSISTANT documented in this encounter Plan of Treatment Upcoming Encounters Date Type Department Care Team (Late st Contact Info) Description 07/10/2024 11:30 AM CDT Oncology Visit [facility] [address] [place] [address] Case Samuel MD [address] [place] [address] 484, [address] [place] [address] documented as of this encounter Goals Goal Patient Goal Type Associated Problems Recent Progress Patient-Stated? Author Pain Management General On track( 025 12:40 PM DATA ENTRY ASSISTANT) Yes Juhi eBnson, RN Note: Goal Statement: [...] Recently Administered Medications Times are shown in DATA ENTRY ASSISTANT. Scheduled Medication Order 06/05/2024 06/06/2024 06/07/2024 heparin [...] Out COVID-19 06/07/2024 06/07/2024 06/07/2024 12:50 PM DATA ENTRY ASSISTANT documented as of this encounter Care Teams Chairperson Anesthesiology Relationship Specialty Start Date End Date No Ref-Primary, Physician PCP - General 03/15/24 06/17/24 Mor Ramsey Medical Student 04/03/24 Case Samuel MD [address] [place] [address] 484, [address] [place] [address] Assigned Pediatric Specialist Provider 05/18/24 Juhi Benson, RN Specialty [employer] Hematology & Oncology 05/29/24 documented as of this encounter
--- OUTSIDE RECORDS SUMMARY | 2024-06-30 23:56 | XMS_ITS | Encounter Summary ---
Author Organization [facility] Address [address] [place] [address] Care Team Providers Care Bleach Chlorinator Name Role Phone No Ref-Primary, Physician Primary Care Provider Mor Ramsey Unavailable Unavailable Case Samuel MD Unavailable [phone] Juhi Benson RN Unavailable Unavailable Reason for Visit * Reason Comments Chest Pain Sickle Cell Pain Crisis Encounter Details Date Type Department Care Team (Late st Contact Info) Description 06/03/2024 3:22 PM CLOCK ASSEMBLER - 06/03/2024 5:30 PM CLOCK ASSEMBLER Emergency [facility] Emergency Room [facility] [place] [address] Jennifer Bell MD [address] [place] [address] Sickle cell pain crisis (H) Discharge Disposition: [...] on file Legal Sex Female 8:25 AM CLOCK ASSEMBLER Gender Identity Not on file Sexual Orientation Not on file documented as of this encounter Last Filed Vital Signs Vital Sign Reading Time Taken Comments Blood Pressure 117/57 06/03/2024 5:00 PM CLOCK ASSEMBLER Pulse 96 06/03/2024 5:00 PM CLOCK ASSEMBLER Temperature 36.3 C (97.4 F) 06/03/2024 3:23 PM CLOCK ASSEMBLER Respiratory Rate 17 06/03/2024 5:00 PM CLOCK ASSEMBLER Oxygen Saturation 96% 06/03/2024 5:00 PM CLOCK ASSEMBLER Inhaled Oxygen Concentration - - Weight 52.2 kg (115 lb) 06/03/2024 3:23 PM CLOCK ASSEMBLER Height 154.9 cm (5' 1) 06/03/2024 3:23 PM CLOCK ASSEMBLER Body Mass Index 21.73 06/03/2024 3:23 PM CLOCK ASSEMBLER documented in this encounter Discharge Instructions * Attachments The following attachments cannot be sent through Care Everywhere. * Sickle Cell Crisis (Namibian) documented in this encounter Medications at Time [...] testing initially patient had labs done at [facility] ER earlier this morning as well [...] external records: External records reviewed?: Outpatient Record: [facility] today (06/03/24) Care impacted by chronic illness:Other: Sickle Cell Disease Did you consider but not order tests?: Work up considered but not performed and documented in chart, if applicable Did you interpret images independently?: Independent interpretation of ECG and images noted in documentation, when applicable. Consultation discussion with other provider:Did you involve another provider (clinical services consultant, , pharmacy, etc.)?: No Discharge. I [...] 10-20 mL (10 mLs Intracatheter $Given 06/03/24 3402) heparin lock flush 10 unit/mL injection 5-10 [...] her sickle cell pain. Patient presented to [facility] this morning due to sickle cell crisis and has labs, covid, flu, RSV, and chest x-ray which were all negative. She usually visits [facility] ED when her pain presents but she did not want to drive far with the [place]. According to patient, they didn't believe her sickle cell disease, so they discharged patient with no stronger pain medications so she decided to come here. Patient is afebrile. There were no other concerns/complaints at this time. 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, [facility] Functional asplenia Gallstones Hb-SS disease [...] Rate 85 BPM Atrial Rate 85 BPM IN Interval 136 ms QRS Duration 82 ms QT 382 ms QTc 454 ms P [place] 54 degrees R AXIS 72 degrees T [place] 50 degrees Interpretation ECG Sinus rhythm Nonspecific T wave abnormality Abnormal ECG When compared with ECG of 27-May-2024 12:12, No significant change was found Confirmed by SEE ED PROVIDER NOTE FOR, ECG INTERPRETATION (4000), manuscript editor BEN PRAKASH ([id number]) on 06/03/2024 3:58:10 PM EKG: Performed at: 03-Jun-2024 15:24:43 Impression: Sinus rhythm, nonspecific T wave abnormality, abnormal ECG Rate: 85 Rhythm: Sinus [place]: 72 IN Interval: 136 QRS Interval: 82 QTc Interval: [...] behalf by Alex Parsons, a trained medical pathology teacher. This document has been checked and approved by the attending provider. Jennifer Bell MD Emergency Medicine [facility] EMERGENCY ROOM [address] [facility] [id number] Dept: [phone] Jennifer Bell MD 06/03/24 1709 K ASSEMBLER * Nedra Martin RN - 06/03/2024 3:23 PM CST Pt c/o a possible sickle cell crisis with right sided chest pain that radiates to the left side. The pt did attempt to try using her home medication of diluadid of 4 mg without relief. Was just seen at [facility]. Pt has a port. Triage Assessment (Adult) [...] WDL Cognitive/Neuro/Behavioral WDL Cognitive/Neuro/Behavioral WDL WDL K ASSEMBLER documented in this encounter Plan of Treatment Upcoming Encounters Date Type Department Care Team (Late st Contact Info) Description 07/10/2024 11:30 AM CDT Oncology Visit [facility] [address] [place] [address] Case Samuel MD [address] [place] [address] 484, [address] [place], [place] [id number] documented as of this encounter Goals Goal Patient Goal Type Associated Problems Recent Progress Patient-Stated? Author Pain Management General On track( 025 12:40 PM CLOCK ASSEMBLER) Yes Juhi Benson, RN Note: Goal [...] MUSE JEREMIAS HORVATH,LUCIANO STAT 06/03/2024 3:24 PM CLOCK ASSEMBLER documented in this encounter Results * ECG 12-LEAD WITH MUSE (LHE) (06/03/2024 3:24 PM CLOCK ASSEMBLER) Systolic Blood Pressure 131 mmHg RADIOLOGY RESULTS Diastolic Blood Pressure 76 mmHg RADIOLOGY RESULTS Ventricular Rate 85 BPM RAD IOLOGY RESULTS Atrial Rate 85 BPM RADIOLOG Y RESULTS IN Interval 136 ms RADIOLOG Y RESULTS QRS Duration 82 ms RADIOLO GY RESULTS QT 382 ms RADIOLOGY RESULTS QTc 454 ms RADIOLOGY RESULTS P [place] 54 degrees RADIOLOGY RESULTS R AXIS 72 degrees RADIOLOGY RESULTS T [place] 50 degrees RADIOLOGY RESULTS Interpretation ECG Sinus rhythm Nonspecific T wave abnormality Abnormal ECG When compared with ECG of 27-May-2024 12:12, No significant change was found Confirmed by SEE ED PROVIDER NOTE FOR, ECG INTERPRETATION (4000), manuscript editor BEN PRAKASH ([id number]) on 06/03/2024 3:58:10 PM RADIOLOGY RESULTS 06/03/2024 3:24 PM CLOCK ASSEMBLER 06/03/2024 3:58 PM CLOCK ASSEMBLER us Deshawn Arredondo MD ECG ORDERABLES [...] For 1 dose $Given 06/03/2024 4:18 PM CLOCK ASSEMBLER 50 mg heparin lock flush 10 [...] the heparin flush. $Given 06/03/2024 5:20 PM CLOCK ASSEMBLER 5 mLs heparin lock flush 100 [...] For 3 doses $Given 06/03/2024 4:48 PM CLOCK ASSEMBLER 2 mg $Given 06/03/2024 3:46 PM CLOCK ASSEMBLER 2 mg lactated ringers BOLUS 1,000 mL Intravenous, 1,000 mL, ONCE, at 500 mL/hr, Administer over 2 Hours, On 06/03/24 at 1530, For 1 dose $New Bag 06/03/2024 3:51 PM CLOCK ASSEMBLER 1,000 mLs 500 mL/hr ondansetron (ZOFRAN) injection 8 mg 8 mg, Intravenous, ONCE, Administer over 2-5 Minutes, On 06/03/24 at 1530, For 1 dose $Given 06/03/2024 3:46 PM CLOCK ASSEMBLER 8 mg sodium chloride (PF) 0.9% [...] each port lumen. $Given 06/03/2024 3:51 PM CLOCK ASSEMBLER 10 mLs documented in this encounter Active and Recently Administered Medications Times are shown in CLOCK ASSEMBLER. Scheduled Medication Order 06/01/2024 06/02/2024 06/03/2024 [...] lumen documented in this encounter Care Teams Bleach Chlorinator Relationship Specialty Start Date End Date No Ref-Primary, Physician PCP - General 03/15/24 06/17/24 Mor Ramsey Medical Student 04/03/24 Case Samuel MD [address] [place] [address] 484, [address] [place], [place] [id number] Assigned Pediatric Specialist Provider 05/18/24 Juhi Benson, SOFIA Specialty Cinder Pitman Hematology & Oncology 05/29/24 documented as of this encounter
--- OUTSIDE RECORDS SUMMARY | 2024-06-30 23:56 | XMS_ITS | Encounter Summary ---
Author Organization [facility] Address [address] [place] [address]. [place] [address] Care Team Providers Care Opto Mechanical Engineer Name Role Phone Roxy Mor Unavailable Unavailable Case Samuel MD Unavailable [phone] Juhi Benson RN Unavailable Unavailable Veronica Joseph MD Primary Care Provider [phone] Encounter Details Date Type Department Care Team [...] in an overnight correction, or couch-surfing.) Yes 06/20/2024 Are you worried [...] on file Legal Sex Female 8:25 AM PEDIATRICIAN MANAGING PARTNER Gender Identity Not on file Sexual Orientation Not on file documented as of this encounter Plan of Treatment Upcoming Encounters Date Type Department Care Team (Late st Contact Info) Description 07/10/2024 11:30 AM CDT Oncology Visit [facility] [address] [place] [address] Case Samuel MD [address] [place] [address] 484, [address] [place], [place] [address] documented as of this encounter Goals Goal Patient Goal Type Associated Problems Recent Progress Patient-Stated? Author Pain Management General On track( 025 12:40 PM PEDIATRICIAN MANAGING PARTNER) Yes Juhi Benson RN Note: Goal Statement: [...] on filedocumented in this encounter Care Teams Opto Mechanical Engineer Relationship Specialty Start Date End Date Veronica Joseph MD [address] [place] [address] PCP - General Family Medicine 06/18/24 Mor Ramsey Medical Student 04/03/24 Case Samuel MD [address] [place] [address] 484, [address] [place] [address] Assigned Pediatric Specialist Provider 05/18/24 Juhi Benson, RN Specialty Temperature Logging Operator Hematology & Oncology 05/29/24 documented as of this encounter
--- OUTSIDE RECORDS SUMMARY | 2024-06-30 23:57 | XMS_ITS ---
Author Organization [facility] Address [address] [place] [address] Care Team Providers Care Oyster Culler Name Role Phone Roxy Mor Unavailable Unavailable Case Samuel MD Unavailable [phone] Juhi Benson RN Unavailable Unavailable Veronica Joseph MD Primary Care Provider [phone] Transitional Care Management Status:Closed (Closed) Start date:06/16/2024 Enrollment date:06/16/2024 End date:06/30/2024 Close reason:Goals met Continued Care and Services Coordination
--- OUTSIDE RECORDS SUMMARY | 2024-06-30 23:57 | XMS_ITS | Encounter Summary ---
Author Organization [facility] Address [address] [place] [address]. [place] [address] Care Team Providers Care Line Out Man Name Role Phone No Ref-Primary, Physician Primary Care Provider Mor Ramsey Unavailable Unavailable Case Samuel MD Unavailable [phone] Juhi Benson RN Unavailable Unavailable Encounter Details [...] on file Legal Sex Female 8:25 AM ELECTRIC TRUCKER Gender Identity Not on file Sexual Orientation Not on file documented as of this encounter Plan of Treatment Upcoming Encounters Date Type Department Care Team (Late st Contact Info) Description 07/10/2024 11:30 AM CDT Oncology Visit [facility] [address] [place] [address] Case Samuel MD [address] [place] [address] 484, [address] [place] [address] documented as of this encounter Goals Goal Patient Goal Type Associated Problems Recent Progress Patient-Stated? Author Pain Management General On track( 025 12:40 PM ELECTRIC TRUCKER) Yes Juhi Benson, RN Note: Goal Statement: [...] on filedocumented in this encounter Care Teams Line Out Man Relationship Specialty Start Date End Date No Ref-Primary, Physician PCP - General 03/15/24 06/17/24 Mor Ramsey Medical Student 04/03/24 Case Samuel MD [address] [place] [address] 484, [address] [place] [address] Assigned Pediatric Specialist Provider 05/18/24 Juhi Benson, RN Specialty Drainage Inspector Hematology & Oncology 05/29/24 documented as of this encounter
--- OUTSIDE RECORDS SUMMARY | 2024-06-30 23:57 | XMS_ITS | Encounter Summary ---
Author Organization [facility] Address [address] [place] [address] Care Team Providers Care Public Health Technologist Name Role Phone Roxy Mor Unavailable Unavailable Case Samuel MD Unavailable [phone] Juhi Benson RN Unavailable Unavailable Veronica Joseph MD Primary Care Provider [phone] Reason for Visit * Reason Comments Sickle Cell Pain Crisis Encounter Details Date Type Department Care Team (Late st Contact Info) Description 06/22/2024 5:23 PM STATE SUPER[employer]ENT [employer] - 06/22/2024 10:02 PM STATE [employer] Emergency [facility] Emergency Department [address] [place] [phone] Lynne Varner MD [address] [place] [id number] Sickle cell anemia with crisis (H) Discharge [...] file Legal Sex Female 8:25 AM STATE SUPERINT[employer] Gender Identity Not on file Sexual Orientation Not on file documented as of this encounter Last Filed Vital Signs Vital Sign Reading Time Taken Comments Blood Pressure 104/73 06/22/2024 5:03 PM STATE SUPERINT[employer] Pulse 100 06/22/2024 5:03 PM STATE [employer] Temperature 36.8 C (98.2 F) 06/22/2024 5:03 PM STATE [employer]PER[employer] Respiratory Rate 16 06/22/2024 5:03 PM STATE [employer]PER[employer] Oxygen Saturation 99% 06/22/2024 5:03 PM STATE [employer] Inhaled Oxygen Concentration - - Weight 52.2 kg (115 lb) 06/22/2024 5:03 PM STATE [employer] Height 154.9 cm (5' 1) 06/22/2024 5:03 PM STATE [employer] Body Mass Index 21.73 06/22/2024 5:03 PM STATE SUPERINT[employer]ENT [employer] documented in this encounter Discharge Instructions * Discharge Instructions* Lynne Varner MD - 06/22/2024 5:43 PM STATE SUPER[employer] TODAY'S VISIT: You were seen today for [...] new or worsening symptoms or any concerns. E [employer]PER[employer]ENT [employer] * Attachments The following attachments cannot be sent through Care Everywhere. * Sickle Cell Crisis (Cymraes) documented in this encounter Medications at Time [...] 05/01/2024 naloxone (NARCAN) 4 MG/0.1ML nasal spray Tamms 1 spray (4 mg) into one nostril [...] Surgical History, and Social History in the [facility] system. Past Medical History: Diagnosis Date Acute [...] 11 naloxone (NARCAN) 4 MG/0.1ML nasal spray Tamms 1 spray (4 mg) into one nostril [...] Concern Not on file Social History Narrative [id number] mom. Recently moved to [place] from [place], [place]. She is 1 of 9 [...] Social Connections: Socially Integrated (03/28/2024) [facility] Social [facility]ctions Do you often feel lonely [...] Status --------- ------ CBC with platelets and d...[[id number]] Abnormal Final result RBC and Platelet Morphology[[id number]] Please view results for these tests on [...] crisis (H) LYNNE VARNER MD 06/22/2024 [facility] EMERGENCY DEPARTMENT Lynne Varner MD 06/22/24 4277 E [employer]PER[employer] * Milagros Lofton RN - 06/22/2024 5:06 PM CST Pt is here for sickle cell crisis. Pain in her back and both legs. PT took her home dilaudid oral at 2 pm. Pt coming in for her pain. Denies any symptoms. Triage Assessment (Adult) Row Name 06/22/24 1911 Triage Assessment Airway WDL WDL Respiratory WDL Respiratory WDL WDL Skin Circulation/Temperature WDL Skin Circulation/Temperature WDL WDL Cardiac WDL Cardiac WDL WDL Cardiac Rhythm Other (Comment) Peripheral/Neurovascular WDL Peripheral Neurovascular WDL WDL Cognitive/Neuro/Behavioral WDL Cognitive/Neuro/Behavioral WDL WDL E SUPERINTENDENT [employer] documented in this encounter Plan of Treatment Upcoming Encounters Date Type Department Care Team (Late st Contact Info) Description 07/10/2024 11:30 AM CDT Oncology Visit [facility] [address] [place] [address] Case Samuel MD [address] [facility] [address], [address] [place], [place] [phone] documented as of this encounter Goals Goal Patient Goal Type Associated Problems Recent Progress Patient-Stated? Author Pain Management General On track( 025 12:40 PM STATE [employer]) Yes Juhi Benson, SOFIA Note: Goal Statement: [...] PLATELETS AND DIFFERENTIAL STAT 06/22/2024 7:10 PM [employer] CBC WITH PLATELETS & DIFFERENTIAL STAT 06/22/2024 7:10 PM [employer] RETICULOCYTE COUNT STAT 06/22/2024 7: 10 PM [employer] HCG QUALITATIVE STAT 06/22/2024 7:10 PM [employer] COMPREHENSIVE METABOLIC PANEL STAT 06/22/2024 7:10 PM [employer] documented in this encounter Results * (ABNORMAL) CBC with platelets and differential (06/22/2024 7:10 PM STATE [employer]) Pathologist [facility] WBC Count 13.7(H) 4.0 - 11.0 10e3/uL 06/22/2024 7:47 PM [employer] [facility] RBC Count 2.48(L) 3.80 - 5.20 10e6/uL 06/22/2024 7:47 PM [employer] [facility] Hemoglobin 8.2(L) 11.7 - 15.7 g/dL 06/22/2024 7:47 PM [employer] [facility] Hematocrit 23.3(L) 35.0 - 47.0 % 06/22/2024 7:47 PM [employer] [facility] MCV 94 78 - 100 fL 06/22/2024 7:47 PM [employer] [facility] MCH 33.1(H) 26.5 - 33.0 pg 06/22/2024 7:47 PM [employer] [facility] MCHC 35.2 31.5 - 36.5 g/dL 06/22/2024 7:47 PM [employer] [facility] RDW 18.6(H) 10.0 - 15.0 % 06/22/2024 7:47 PM [employer] [facility] Platelet Count 470(H) 150 - 450 10e3/uL 06/22/2024 7:47 PM [employer] [facility] % Neutrophils 78 % 06/22/2024 7:47 PM [employer] [facility] % Lymphocytes 16 % 06/22/2024 7:47 PM [employer] [facility] % Monocytes 4 % 06/22/2024 7:47 PM [employer] [facility] % Eosinophils 1 % 06/22/2024 7:47 PM [employer] [facility] % Basophils 1 % 06/22/2024 7:47 PM [employer] [facility] % Immature Granulocytes 1 % 06/22/2024 7:47 PM [employer] [facility] NRBCs per 100 WBC 3(H) <1 /100 025 7:47 PM [employer] [facility] Absolute Neutrophils 10.6(H) 1.6 - 8.3 10e3/uL 06/22/2024 7:47 PM [employer] [facility] Absolute Lymphocytes 2.3 0.8 - 5.3 10e3/uL 06/22/2024 7:47 PM [employer] [facility] Absolute Monocytes 0.5 0.0 - 1.3 10e3/uL 06/22/2024 7:47 PM [employer] [facility] Absolute Eosinophils 0.1 0.0 - 0.7 10e3/uL 06/22/2024 7:47 PM [employer] [facility] Absolute Basophils 0.1 0.0 - 0.2 10e3/uL 06/22/2024 7:47 PM [employer] [facility] Absolute Immature Granulocytes 0.1 <=0.4 10e3/uL 06/22/2024 7:47 PM [employer] [facility] Absolute NRBCs 0.4 10e3/uL 06/22/2024 7:47 PM [employer] [facility] Blood VENOUS LINE / Unknown Venipuncture / Unknown 06/22/2024 7:10 PM [employer] 06/22/2024 7:16 PM [employer] Lynne Varner MD LAB - BLOOD ORDERABLES Fin al Result [facility] [address] [facility], Room [address] * (ABNORMAL) Reticulocyte count (06/22/2024 7:10 PM STATE [employer]) % Reticulocyte 5.3(H) 0.5 - 2.0 % 06/22/2024 7:23 PM [employer] [facility] Absolute Reticulocyte 0.130(H) 0.025 - 0.095 10e6/uL 06/22/2024 7:23 PM [employer] [facility] Blood VENOUS LINE / Unknown Venipuncture / Unknown 06/22/2024 7:10 PM [employer] 06/22/2024 7:16 PM [employer] Lynne Varner MD LAB - BLOOD ORDERABLES Fin al Result [facility] [address] [facility], [address] * HCG qualitative Blood (06/22/2024 7:10 PM STATE [employer]) hCG Serum Qualitative Negative Negative JARET 06/22/2024 7:45 PM [employer] [facility] Comment:This test is for scr eening purposes. Results should be interpreted along with the clinical picture. Confirmation testing is available if warranted by ordering [id number], HCG Quantitative . Blood VENOUS LINE / Unknown Venipuncture / Unknown 06/22/2024 7:10 PM [employer] 06/22/2024 7:26 PM STATE [employer] us Lynne Varner MD LAB - BLOOD ORDERABLES Fin al Result [facility] [address] [facility], [address] [place] [address] * (ABNORMAL) Comprehensive metabolic panel (06/22/2024 7:10 PM STATE [employer]) Sodium 137 135 - 145 mmol/L 06/22/2024 8:00 PM [employer] [facility] Potassium 4.5 3.4 - 5.3 mmol/L 06/22/2024 8:00 PM [employer] [facility] Carbon Dioxide (CO2) 21(L) 22 - 29 mmol/L 06/22/2024 8:00 PM [employer] [facility] Anion Gap 8 7 - 15 mmol/L 06/22/2024 8:00 PM [employer] [facility] Urea Nitrogen 12.1 6.0 - 20.0 mg/dL 06/22/2024 8:00 PM [employer] [facility] Creatinine 0.71 0.51 - 0.95 mg/dL 06/22/2024 8:00 PM [employer] [facility] GFR Estimate >90 >60 mL/min/1.7 3m2 06/22/2024 8:00 PM [employer] [facility] Comment:eGFR calculated us2020 CKD-EPI equation. Calcium 9.5 8.8 - 10.4 mg/dL 06/22/2024 8:00 PM [employer] [facility] Chloride 108(H) 98 - 107 mmol/L 06/22/2024 8:00 PM [employer] [facility] Glucose 100(H) 70 - 99 mg/dL 06/22/2024 8:00 PM [employer] [facility] Alkaline Phosphatase 119 40 - 150 U/L 06/22/2024 8:00 PM [employer] [facility] AST 62(H) 0 - 45 U/L 06/22/2024 8:00 PM [employer] [facility] ALT 54(H) 0 - 50 U/L 06/22/2024 8:00 PM [employer] [facility] Protein Total 7.8 6.4 - 8.3 g/dL 06/22/2024 8:00 PM [employer] [facility] Albumin 4.1 3.5 - 5.2 g/dL 06/22/2024 8:00 PM [employer] [facility] Bilirubin Total 1.4(H) <=1.2 mg/dL 06/22/2024 8:00 PM [employer] [facility] Blood VENOUS LINE / Unknown Venipuncture / Unknown 06/22/2024 7:10 PM STATE [employer] 06/22/2024 7:16 PM [employer] us Lynne Varner MD LAB - BLOOD ORDERABLES Fin al Result [facility] [address] [facility], Room [address] [place] [id number] documented in this encounter Visit Diagnoses [...] For 1 dose $Given 06/22/2024 7:19 PM [employer] 25 mg heparin lock flush 100 unit/mL injection 100 Units 100 Units, Intravenous, ONCE, On Citlali 06/22/24 at 2150, For 1 dose $Given 06/22/2024 9:53 PM STATE [employer] 100 Units hydromorphone (DILAUDID) injection 2 mg 2 mg, Intravenous, EVERY 1 HOUR PRN, severe pain, Starting on Citlali 06/22/24 at 1735, For 3 doses $Given 06/22/2024 9:33 PM [employer] 2 mg $Given 06/22/2024 8:34 PM [employer] 2 mg $Given 06/22/2024 7:20 PM STATE [employer]PER[employer] 2 mg lactated ringers BOLUS 1,000 mL Intravenous, 1,000 mL, ONCE, at 1,000 mL/hr, Administer over 1 Hours, On Citlali 06/22/24 at 1740, For 1 dose $New Bag 06/22/2024 7:19 PM STATE [employer]PER[employer] 1,000 mLs 1000 mL/hr ondansetron (ZOFRAN) injection 4 mg 4 mg, Intravenous, EVERY 30 MIN PRN, nausea, vomiting, Administer over 2-5 Minutes, Starting on Citlali 06/22/24 at 1735, For 3 doses, May repeat in 30 minutes as needed, up to 3 doses. $Given 06/22/2024 7:19 PM STATE [employer]PER[employer] 4 mg documented in this encounter Active and Recently Administered Medications Times are shown in STATE [employer]. Scheduled Medication Order 06/20/2024 06/21/2024 06/22/2024 diphenhydrAMINE [...] RN) documented in this encounter Care Teams Public Health Technologist Relationship Specialty Start Date End Date Veronica Joseph MD [address] [place] [address] PCP - General Family Medicine 06/18/24 Mor Ramsey Medical Student 04/03/24 Case Samuel MD [address] [facility] [address], [address] [place] [address] Assigned Pediatric Specialist Provider 05/18/24 Juhi Benson, RN Specialty Zoning Assistant Hematology & Oncology 05/29/24 documented as of this encounter
--- OUTSIDE RECORDS SUMMARY | 2024-06-30 23:57 | XMS_ITS | Encounter Summary ---
Author Organization [facility] Address [address] [place] [address]. 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 Call member services at your health plan with any benefit or coverage questions. Y ANALYST Reason for Visit * Reason Comments Sickle Cell Pain Crisis * Auth/Cert Specialty Diagnoses / Procedures Referred By Contkameron t Referred To Contact EMERGENCY MEDICINE Diagnoses Acute chest pain Sickle cell pain crisis (H) Formerly [facility] Emergency Department [address] [place] [address] Phone: tel: Referral ID Status Reason Start Date Expiration Date Visits Re quested Visits Authorized [id number] 1 1 Encounter Details Date Type Department Care Team (Latest Contact Info) Description 06/12/2024 6:38 PM ENTRY ANALYST - 06/15/2024 10:48 AM ENTRY ANALYST Hospital En[facility] Emergency Department [address] [place] [phone] Abdelrahman Goddard MD [address] [place] [address] Andres Jain DO Duffy, Briar, MD [address] [facility] [address] [place] [address] 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) [...] file Legal Sex Female 8:25 AM ENTRY ANALYST Gender Identity Not on file Sexual Orientation Not on file documented as of this encounter Last Filed Vital Signs Vital Sign Reading Time Taken Comments Blood Pressure 99/64 06/15/2024 6:10 AM ENTRY ANALYST Pulse 75 06/15/2024 6:10 AM ENTRY ANALYST Temperature 36.7 C (98 F) 06/15/2024 6:10 AM ENTRY ANALYST Respiratory Rate 16 06/15/2024 6:10 AM ENTRY ANALYST Oxygen Saturation 100% 06/15/2024 6:10 AM ENTRY ANALYST Inhaled Oxygen Concentration - - Weight - - Height - - Body Mass Index - - documented in this encounter Discharge Summaries * Rl Elias MD - 06/15/2024 8:58 AM CST [facility] Discharge Summary - Medicine & Pediatrics Date of Admission: 06/12/2024 Date of Discharge: 06/15/2024 Discharging Provider: Dr Rl Elias, Dr German Hall Discharge Service: Medicine Service, [facility] TEAM 1 Discharge Diagnoses Acute sickle cell [...] 5 day course of antibiotics - Continue BENCH MOLDER APPRENTICE hydroxyurea - Continue BENCH MOLDER APPRENTICE folic acid - Continue albuterol inhaler QID given in the ED - Patient should follow up with her PCP upon discharge in 2-3 weeks - Patient should restart pain plan as taking at home with PO hydromorphone 2 mg Q6H PRN for pain upon discharge #Anxiety #Nausea - Continue BENCH MOLDER APPRENTICE Fluoxetine 10 mg daily Consultations This Hospital Stay HEMATOLOGY ADULT IP CONSULT CARE MANAGEMENT / SOCIAL WORK IP CONSULT Code Status Full Code The patient was discussed with Dr. Hall. MD Oliver LANGLEY [address] [place] [address] EMERGENCY DEPARTMENT [address] [facility] [phone] Physical Exam Vital Signs: Temp: 98 ??F [...] your primary care provider & your primary Front Office Assistant as indicated. Activity Your activity upon discharge: [...] EXAM: XR CHEST 2 VIEWS LOCATION: [facility] DATE: 06/12/2024 INDICATION: CP COMPARISON: 06/03/2024, [...] E-Prescribe naloxone (NARCAN) 4 MG/0.1ML nasal spray Lewes 1 spray (4 mg) into one nostril [...] German Hall MD at 06/22/2024 12:17 PM ENTRY ANALYST Y ANALYST Y ANALYST Associated attestation - German Hall MD - 06/22/2024 12:17 PM ENTRY ANALYST Attestation: This patient has been seen and [...] 05/01/2024 naloxone (NARCAN) 4 MG/0.1ML nasal spray Lewes 1 spray (4 mg) into one nostril [...] Overall, I spent 35 minutes today (DOS) [id number] and/or coordinating care as documented above and specifically listed as below: --Reviewing documentation related to patient's history and this current admission available in Chromatin --Review and clinical interpretation of pertinent laboratory test results and radiology reports from this admission --Discussion of the patient's case with the members of the Hematology Consult Team --Discussion with the patient --Documentation in the electronic health record Y ANALYST * Rl Elias MD - 06/14/2024 7:08 [...] Service (when I saw the patient): 06/14/24 [facility] Progress Note - [facility] Date of Admission: [...] 7-9, most recent Hbg 8.8 on 06/07 BENCH MOLDER APPRENTICE. Hb.5 -> 6.4 -> 6.8 -> 6.9 Plan: - Blood cultures pending x2 - NGTD - CTM hemoglobin daily - Ordered Voltaren gel, lidocaine patches, and icy hot PRN - Continue Ceftriaxone and Azithromycin for ppx (06/12 -*), consider transition to PO this afternoon - Continue BENCH MOLDER APPRENTICE hydroxyurea - Continue BENCH MOLDER APPRENTICE folic acid - Continue IS - type and screen ordered, consented for blood on 06/13 - no indication for transfusion unless hemodynamically unstable - Hematology consulted, appreciate recs - Hydromorphone 2 mg IV Q2H scheduled--titrate within 24-48 hours - Maintenance LR - Transfusion not recommended at this time - albuterol inhaler q6h, zofran, benadryl, docusate, senna PRN #Anxiety #Nausea - Continue BENCH MOL[employer] APPRENTICE Fluoxetine - Benadryl PRN per Pain Plan [...] Nivia Carvajal, MS3 Medical Student Medicine Service, [facility] TEAM [address] [place] [address] Securely message with [employer] (more info) Text page via [facility] Paging/Directory See signed in provider for up [...] German Hall MD at 06/19/2024 8:50 AM ENTRY ANALYST Y ANALYST Y ANALYST Y ANALYST Associated attestation - German Hall MD - 06/19/2024 8:50 AM ENTRY ANALYST Attestation: This patient has been seen and [...] Service (when I saw the patient): 06/13/24 [facility] Progress Note - Medicine Service, [facility] TEAM 1 Date of Admission: 06/12/2024 Assessment [...] 7-9, most recent Hbg 8.8 on 06/07 BENCH MOLDER APPRENTICE. Hb.5 -> 6.4 Plan: -Blood cultures pending x2 -CTM hemoglobin daily -Continue Ceftriaxone and Azithromycin for ppx (06/12 -*) -Continue BENCH MOLDER APPRENTICE hydroxyurea -Continue BENCH MOLDER APPRENTICE folic acid - type and screen ordered, consented for blood - no indication for transfusion unless hemodynamic instability - Hematology consulted, appreciate recs -Hydromorphone 2 mg IV Q3H scheduled--titrate within 24-48 hours -Maintenance LR -Transfusion not recommended at this time - zofran, benadryl, docusate, senna PRN #Anxiety #Nausea -Continue B[employer]CH MOLDER APPRENTICE Fluoxetine -Benadryl PRN per Pain Plan -Zofran [...] Nivia Carvajal, MS3 Medical Student Medicine Service, [facility] TEAM [address] [place] [address] Securely message with [employer] (more info) Text page via [employer] Paging/Directory See signed in provider for up [...] EXAM: XR CHEST 2 VIEWS LOCATION: [facility] DATE: 06/12/2024 INDICATION: CP COMPARISON: 06/03/2024, [...] catheter tip low SVC. Cosigned by German aHll MD at 06/14/2024 8:25 AM ENTRY ANALYST Y ANALYST Y ANALYST Associated attestation - German Hall MD - 06/14/2024 8:25 AM ENTRY ANALYST Attestation: This patient has been seen and evaluated by me, German Hall MD. Discussed with the house staff team or resident(s) and agree with the findings and plan in this note. I have reviewed today's Medications, Vital Signs, and Labs. DOS 06/13 * Mary Flores MD - 06/12/2024 8:20 PM CST resident inspector Hematology fellow note 29F Sickle cell disease [...] Flores MD MS Hematology fellow, PGY5 Pager: [phone] Cosigned by Kirstin Long MD at 06/13/2024 7:25 AM ENTRY ANALYST Y ANALYST Y ANALYST Y ANALYST Associated attestation - Kisrtin Long MD - 06/13/2024 7:25 AM ENTRY ANALYST Physician Attestation I discussed patient overnight with fellow content coordinator. I agree with plan as outlined. I did not see thepatient on this date. Kirstin Long MD/PhD documented in this encounter H&P Notes * Laquita Kelley MD - 06/12/2024 9:37 PM CST [facility] History and Physical - Medicine Service, [facility] TEAM Date of Admission: 06/12/2024 Assessment & [...] of avascular necrosis of left hip -Continue BENCH MOLDER APPRENTICE hydroxyurea -Continue BENCH MOLDER APPRENTICE folic acid -Transfuse for Hb<7 #Stroke reported [...] Jain . Laquita Kelley MD Medicine Service, [facility] Securely message with [employer] (more info) Text page via [facility] [...] 4 MG/0.1ML nasal spray No No Sig: Lewes 1 spray (4 mg) into one nostril [...] Andres Jain DO at 06/12/2024 10:27 PM ENTRY ANALYST Y ANALYST Y ANALYST Y ANALYST Y ANALYST Associated attestation - Andres Jain DO - 06/12/2024 10:27 PM ENTRY ANALYST Physician Attestation I saw this patient with [...] Communication Assessment Patient's communication style: spoken language (Uzbek or Bilingual) Cognitive Cognitive/Neuro/Behavioral: WDL Living Environment: [...] Depression: Not at risk (04/11/2024) Received from [facility] PHQ-2 PHQ-2 TOTAL SCORE: 1 Housing Stability: [...] Social Connections: Socially Integrated (03/28/2024) Received from [facility] Social Connections Do you often feel lonely [...] Katheryn Carter RN, PHN, BSN Float Nurse Wildlife Photographer Covering for Unit ED Phone [phone] Y ANALYST * Kirstin Long MD - 06/13/2024 10:17 AM CSTAssociated Order(s): HEMATOLOGY ADULT IP CONSULT Images from the original note were not included. 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 DATE: 06/12/2024 INDICATION: CP COMPARISON: 06/03/2024, 05/27/2024 IMPRESSION: A few faint peripheral reticulonodular opacities in the mid and lower lungs again seen.Lungs otherwise clear. No pleural effusion. No pneumothorax. Borderline cardiac enlargement unchanged. Port anterior right chest wall with right IJ central venous catheter tip low SVC. Port anterior left chest wall with left IJ central venous catheter tip low SVC. Y ANALYST documented in this encounter ED Notes * Juhi Crump RN - 06/12/2024 6:55 PM CST Bed: [facility] Expected date: Expected time: Means of arrival: Comments: SICK Y ANALYST * Lebron Aponte RN - 06/12/2024 6:34 PM CST Pt ambulatory to triage with CC of sickle cell pain in the L upper anterior chest. Was seen for this at [facility] last night. Reports interventions at [facility] were helpful, however pain has returned. Patient reports taking 4mg po Dilaudid at 1500 with partial relief of pain but is still severe. Contacted [employer] bi consultant and was instructed to come to [facility]. Reports SOB a little bit. It hurts to take a deep breath. Denies dizziness. Triage Assessment (Adult) Row Name 06/12/24 1526 Triage Assessment Airway WDL WDL Respiratory WDL [...] 5-->(V5) oriented Lester Coma Scale Score 15 Y ANALYST * Abdelrahman Goddard MD - 06/12/2024 6:20 PM CST Images from the original note were not included. 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, [facility] Functional asplenia Gallstones Hb-SS disease without [...] chest pain Rhythm: normal sinus Rate: 94BPM Randolph: Normal Ectopy: none Conduction: normal ST Segments/ [...] Rate 102 BPM Atrial Rate 102 BPM MO Interval 158 ms QRS Duration 78 ms QT 348 ms QTc 453 ms P Randolph 39 degrees R AXIS 66 degrees T Randolph 33 degrees Interpretation ECG Sinus tachycardia Nonspecific T wave abnormality Abnormal ECG When compared with ECG of 05-Jun-2024 11:40, No significant change was found Confirmed by SEE ED PROVIDER NOTE FOR, ECG INTERPRETATION ([id number]), editorial assistant SELMA GARRISON ([id number]) on 06/11/2024 9:05:27 PM Medications - No [...] Hernadez, am serving as a trained medical detailist to document services personally performed by Abdelrahman Goddard MD, based on the provider's statements to me. I, Abdelrahman Goddard MD, was physically present and have reviewed and verified the accuracy of this note documented by Jovanny Hernadez. Abdelrahman Goddard MD [facility] EMERGENCY DEPARTMENT 06/12/2024 Abdelrahman Goddard MD 06/12/242023 Y ANALYST documented in this encounter Miscellaneous Notes * Plan of Care - Clay Avina RN - 06/15/2024 9:55 AM CST Goal Outcome Evaluation: Plan of Care Reviewed With: patient Overall Patient Progress: improving 4x A/O. VSS. RA. Independent. AVS reviewed, questions answered. Port de accessed with saline flush and heparin locked. Y ANALYST * Plan of Care - Kathy Levy RN - 06/15/2024 6:22 AM CST Goal Outcome Evaluation: Plan of Care Reviewed With: patient Overall Patient Progress: improving Pt is alert anf oriented x4. VSS, on room air with no SOB noted. On pain management for sickle cellcrisis. Tolerating diet well with no n/v. L chest port infusing intermittent IV ABT. Voiding well. Last BM BENCH MOLDER APPRENTICE. Pt is up ad chandler. Will continue with plan of care. Y ANALYST * Plan of Care - Clay Avina RN - 06/14/2024 5:02 PM CST Goal Outcome Evaluation: Plan of Care Reviewed With: patient Overall Patient Progress: improving 4x A/O. VSS. Independent. Pain controlled with schedule q2hr IV dilaudid. Tolerating regular diet. Voiding spontaneously. Had nausea in AM, relieved with Zofran. Port SL. Y ANALYST * Pharmacy-Admission Medication History - Lorenza Valdes - 06/14/2024 11:19 AM CST [facility] Admission Medication History Admission medication history is complete. The information provided in this note is only as accurateas the sources available at the time of the update. Information Source(s): Patient and CareEverywhere/SureScripts via in-person Pertinent Information: Medication reconciliation completed at bedside with patient. Patient was a good historian of her medication names, doses, frequencies, and last doses. Changes made to BENCH MOLDER APPRENTICE medication list: Added: Epi-pen: patient has pen available, but has not used recently. Ibuprofen: OTC product used PRN for pain. Benadryl: OTC product used PRN for itching due to hydromorphone. Deleted: None Changed: None Allergies reviewed with patient and updates made in EHR: yes Medication History Completed By: Lorenza Valdes 06/14/2024 11:19 AM BENCH MOLDER APPRENTICE Med List Medication Sig Last Dose/Taking diphenhydrAMINE [...] Morning naloxone (NARCAN) 4 MG/0.1ML nasal spray Lewes 1 spray (4 mg) into one nostril alternating nostrilsas needed for opioid reversal (for opiate overdose if not breathing and unconscious. have your family member watch video on how to use/read information sheet). every 2-3 minutes until assistance arrives Taking As Needed Cosigned by Terrell Fernandez RPH at 06/15/2024 10:33 AM ENTRY ANALYST Y ANALYST Y ANALYST Associated attestation - Terrell Fernandez RPH - 06/15/2024 10:33 AM ENTRY ANALYST I have read and agree with the student's note. Terrell Fernandez, PGY-1 Special Education Director * Provider Notification - Kiki Caal RN - 06/13/2024 7:27 PM ENTRY ANALYST Notified providers Nivia Carvajal, Laquita Kelley and Rl Elias of critical Hgb 6.8 at 1920. No new orders Y ANALYST * Plan of Care - Katheryn Carter RN - 06/13/2024 12:44 PM CST Goal Outcome Evaluation: Plan of Care Reviewed With: patient Overall Patient Progress: improvingOverall Patient Progress: improving Outcome Evaluation: Plan: TBD Katheryn Carter RN, PHN, BSN Float Nurse Wildlife Photographer Covering for Unit ED Phone [phone] Y ANALYST * Plan of Care - Shauna Cuadra [...] with POC. Notify primary team with changes. Y ANALYST documented in this encounter Plan of Treatment Upcoming Encounters Date Type Department Care Team (Late st Contact Info) Description 07/10/2024 11:30 AM CDT Oncology Visit 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 Author Pain Management General On track( 025 12:40 PM ENTRY ANALYST) Yes Juhi Benson, SOFIA Note: Goal [...] PLATELETS AND DIFFERENTIAL STAT 06/15/2024 6:09 AM ENTRY ANALYST CBC WITH PLATELETS & DIFFERENTIAL STAT 06/15/2024 6:09 AM ENTRY ANALYST BASIC METABOLIC PANEL STAT 06/15/2024 6:09 AM ENTRY ANALYST XR CHEST PORT 1 VIEW STAT 06/14/2024 8:46 AM ENTRY ANALYST BASIC METABOLIC PANEL STAT 06/14/2024 7:08 AM ENTRY ANALYST CBC WITH PLATELETS STAT 06/14/2024 7: 08 AM ENTRY ANALYST CBC WITH PLATELETS STAT 06/13/2024 6: 32 PM ENTRY ANALYST RBC AND PLATELET MORPHOLOGY STAT 06/13/2024 6:00 AM ENTRY ANALYST CBC WITH PLATELETS AND DIFFERENTIAL STAT 06/13/2024 6:00 AM ENTRY ANALYST CBC WITH PLATELETS & DIFFERENTIAL STAT 06/13/2024 6:00 AM ENTRY ANALYST BASIC METABOLIC PANEL STAT 06/13/2024 5:59 AM ENTRY ANALYST RESPIRATORY PANEL PCR STAT 06/12/2024 9:34 PM ENTRY ANALYST BLOOD CULTURE STAT 06/12/2024 8:46 PM ENTRY ANALYST BLOOD CULTURE STAT 06/12/2024 8:46 PM ENTRY ANALYST XR CHEST 2 VIEWS STAT 06/12/2024 7:38 PM ENTRY ANALYST RBC AND PLATELET MORPHOLOGY STAT 06/12/2024 7:17 PM ENTRY ANALYST CBC WITH PLATELETS AND DIFFERENTIAL STAT 06/12/2024 7:17 PM ENTRY ANALYST TYPE AND SCREEN, ADULT Routine 06/12/2024 7:17 PM ENTRY ANALYST TROPONIN T, HIGH SENSITIVITY STAT 06/12/2024 7:17 PM ENTRY ANALYST CBC WITH PLATELETS & DIFFERENTIAL STAT 06/12/2024 7:17 PM ENTRY ANALYST INR STAT 06/12/2024 7:17 PM ENTRY ANALYST BLOOD GAS VENOUS STAT 06/12/2024 7:17 PM ENTRY ANALYST ABO/RH TYPE AND SCREEN Add-On 06/12/2024 7:17 PM ENTRY ANALYST BASIC METABOLIC PANEL STAT 06/12/2024 7:17 PM ENTRY ANALYST EKG 12-LEAD, TRACING ONLY STAT 06/12/2024 6:37 PM ENTRY ANALYST documented in this encounter Results * (ABNORMAL) CBC with platelets and differential (06/15/2024 6:09 AM ENTRY ANALYST) [facility] WBC Count 11.8(H) 4.0 - 11.0 10e3/uL 06/15/2024 6:36 AM ENTRY ANALYST [facility] RBC Count 2.27(L) 3.80 - 5.20 10e6/uL 06/15/2024 6:36 AM ENTRY ANALYST [facility] Hemoglobin 7.2(L) 11.7 - 15.7 g/dL 06/15/2024 6:36 AM ENTRY ANALYST [facility] Hematocrit 20.4(L) 35.0 - 47.0 % 06/15/2024 6:36 AM ENTRY ANALYST [facility] MCV 90 78 - 100 fL 06/15/2024 6:36 AM ENTRY ANALYST [facility] MCH 31.7 26.5 - 33.0 pg 06/15/2024 6:36 AM ENTRY ANALYST [facility] MCHC 35.3 31.5 - 36.5 g/dL 06/15/2024 6:36 AM ENTRY ANALYST [facility] RDW 19.0(H) 10.0 - 15.0 % 06/15/2024 6:36 AM ENTRY ANALYST [facility] Platelet Count 500(H) 150 - 450 10e3/uL 06/15/2024 6:36 AM ENTRY ANALYST [facility] % Neutrophils 54 % 06/15/2024 6:36 AM ENTRY ANALYST [facility] % Lymphocytes 31 % 06/15/2024 6:36 AM ENTRY ANALYST [facility] % Monocytes 9 % 06/15/2024 6:36 AM ENTRY ANALYST [facility] % Eosinophils 5 % 06/15/2024 6:36 AM ENTRY ANALYST [facility] % Basophils 2 % 06/15/2024 6:36 AM ENTRY ANALYST [facility] % Immature Granulocytes 1 % 06/15/2024 6:36 AM ENTRY ANALYST [facility] NRBCs per 100 WBC 2(H) <1 /100 025 6:36 AM ENTRY ANALYST [facility] Absolute Neutrophils 6.3 1.6 - 8.3 10e3/uL 06/15/2024 6:36 AM ENTRY ANALYST [facility] Absolute Lymphocytes 3.6 0.8 - 5.3 10e3/uL 06/15/2024 6:36 AM ENTRY ANALYST [facility] Absolute Monocytes 1.0 0.0 - 1.3 10e3/uL 06/15/2024 6:36 AM ENTRY ANALYST [facility] Absolute Eosinophils 0.6 0.0 - 0.7 10e3/uL 06/15/2024 6:36 AM ENTRY ANALYST [facility] Absolute Basophils 0.2 0.0 - 0.2 10e3/uL 06/15/2024 6:36 AM ENTRY ANALYST [facility] Absolute Immature Granulocytes 0.1 <=0.4 10e3/uL 06/15/2024 6:36 AM ENTRY ANALYST [facility] Absolute NRBCs 0.2 10e3/uL 06/15/2024 6:36 AM ENTRY ANALYST [facility] Blood BLOOD SPECIMEN / Unknown IVAD (Port) / Unknown 06/15/2024 6:09 AM ENTRY ANALYST 06/15/2024 6:18 AM ENTRY ANALYST us Rl Elias MD LAB - BLOOD ORDER SYD Final Result [facility] [place] [facility] [address] [facility], Room [address] [place] [id number], [facility] * (ABNORMAL) Basic metabolic panel (06/15/2024 6:09 AM ENTRY ANALYST) Sodium 136 135 - 145 mmol/L 06/15/2024 7:13 AM ENTRY ANALYST [facility] Potassium 4.4 3.4 - 5.3 mmol/L 06/15/2024 7:13 AM ENTRY ANALYST [facility] Chloride 104 98 - 107 mmol/L 06/15/2024 7:13 AM ENTRY ANALYST [facility] Carbon Dioxide (CO2) 21(L) 22 - 29 mmol/L 06/15/2024 7:13 AM ENTRY ANALYST [facility] Anion Gap 11 7 - 15 mmol/L 06/15/2024 7:13 AM ENTRY ANALYST [facility] Urea Nitrogen 10.1 6.0 - 20.0 mg/dL 06/15/2024 7:13 AM ENTRY ANALYST [facility] Creatinine 0.65 0.51 - 0.95 mg/dL 06/15/2024 7:13 AM ENTRY ANALYST [facility] GFR Estimate >90 >60 mL/min/1.7 3m2 06/15/2024 7:13 AM ENTRY ANALYST [facility] Comment:eGFR calculated us2020 CKD-EPI equation. Calcium 8.9 8.8 - 10.4 mg/dL 06/15/2024 7:13 AM ENTRY ANALYST [facility] Glucose 104(H) 70 - 99 mg/dL 06/15/2024 7:13 AM ENTRY ANALYST [facility] Blood BLOOD SPECIMEN / Unknown IVAD (Port) / Unknown 06/15/2024 6:09 AM ENTRY ANALYST 06/15/2024 6:16 AM ENTRY ANALYST Rl Elias MD LAB - BLOOD ORDER SYD Final Result [facility] [place] [facility] [address] [facility], [address] [place] [address], [facility] * XR Chest Port 1 View (06/14/2024 8:46 AM ENTRY ANALYST) Anatomical Region Laterality Modality Chest Digital Radiogra phy Impressions 06/14/2024 8:59 AM ENTRY ANALYST Impression: Further increase in ill-defined opacity projecting over the right lower lung concerning for pneumonia. MARIO ALBERTO [place] MD Narrative 06/14/2024 8:59 AM ENTRY ANALYST Exam: XR CHEST PORT 1 VIEW, 06/14/2024 [...] (ABNORMAL) CBC with platelets (06/14/2024 7:08 AM ENTRY ANALYST) WBC Count 13.4(H) 4.0 - 11.0 10e3/uL 06/14/2024 7:46 AM ENTRY ANALYST [facility] RBC Count 2.30(L) 3.80 - 5.20 10e6/uL 06/14/2024 7:46 AM ENTRY ANALYST [facility] Hemoglobin 6.9(LL) 11.7 - 15.7 g/dL 06/14/2024 7:46 AM ENTRY ANALYST [facility] Hematocrit 21.6(L) 35.0 - 47.0 % 06/14/2024 7:46 AM ENTRY ANALYST [facility] MCV 94 78 - 100 fL 06/14/2024 7:46 AM ENTRY ANALYST [facility] MCH 30.0 26.5 - 33.0 pg 06/14/2024 7:46 AM ENTRY ANALYST [facility] MCHC 31.9 31.5 - 36.5 g/dL 06/14/2024 7:46 AM ENTRY ANALYST [facility] RDW 19.4(H) 10.0 - 15.0 % 06/14/2024 7:46 AM ENTRY ANALYST [facility] Platelet Count 501(H) 150 - 450 10e3/uL 06/14/2024 7:46 AM ENTRY ANALYST [facility] Blood BLOOD SPECIMEN / Unknown Venipuncture / Unknown 06/14/2024 7:08 AM ENTRY ANALYST 06/14/2024 7:22 AM ENTRY ANALYST Rl Elias MD LAB - BLOOD ORDER SYD Final Result [facility] [place] [facility] [address] [facility], [address] [place] [phone] * (ABNORMAL) Basic metabolic panel (06/14/2024 7:08 AM ENTRY ANALYST) Sodium 136 135 - 145 mmol/L 06/14/2024 7:57 AM ENTRY ANALYST [facility] Potassium 4.2 3.4 - 5.3 mmol/L 06/14/2024 7:57 AM ENTRY ANALYST [facility] Chloride 107 98 - 107 mmol/L 06/14/2024 7:57 AM ENTRY ANALYST [facility] Carbon Dioxide (CO2) 20(L) 22 - 29 mmol/L 06/14/2024 7:57 AM ENTRY ANALYST [facility] Anion Gap 9 7 - 15 mmol/L 06/14/2024 7:57 AM ENTRY ANALYST [facility] Urea Nitrogen 6.5 6.0 - 20.0 mg/dL 06/14/2024 7:57 AM ENTRY ANALYST [facility] Creatinine 0.71 0.51 - 0.95 mg/dL 06/14/2024 7:57 AM ENTRY ANALYST [facility] GFR Estimate >90 >60 mL/min/1.7 3m2 06/14/2024 7:57 AM ENTRY ANALYST [facility] Comment:eGFR calculated usin 2020 CKD-EPI equation. Calcium 8.9 8.8 - 10.4 mg/dL 06/14/2024 7:57 AM ENTRY ANALYST [facility] Glucose 92 70 - 99 mg/dL 06/14/2024 7:57 AM ENTRY ANALYST [facility] Blood BLOOD SPECIMEN / Unknown Venipuncture / Unknown 06/14/2024 7:08 AM ENTRY ANALYST 06/14/2024 7:22 AM ENTRY ANALYST Rl Elias MD LAB - BLOOD ORDER SYD Final Result [facility] [place] [facility] [address] [facility], [address] [place] [address] * (ABNORMAL) CBC with platelets (06/13/2024 6:32 PM ENTRY ANALYST) [facility] WBC Count 15.3(H) 4.0 - 11.0 10e3/uL 06/13/2024 7:10 PM ENTRY ANALYST [facility] RBC Count 2.21(L) 3.80 - 5.20 10e6/uL 06/13/2024 7:10 PM ENTRY ANALYST [facility] Hemoglobin 6.8(LL) 11.7 - 15.7 g/dL 06/13/2024 7:10 PM ENTRY ANALYST [facility] Hematocrit 20.8(L) 35.0 - 47.0 % 06/13/2024 7:10 PM ENTRY ANALYST [facility] MCV 94 78 - 100 fL 06/13/2024 7:10 PM ENTRY ANALYST [facility] MCH 30.8 26.5 - 33.0 pg 06/13/2024 7:10 PM ENTRY ANALYST [facility] MCHC 32.7 31.5 - 36.5 g/dL 06/13/2024 7:10 PM ENTRY ANALYST [facility] RDW 19.6(H) 10.0 - 15.0 % 06/13/2024 7:10 PM ENTRY ANALYST [facility] Platelet Count 495(H) 150 - 450 10e3/uL 06/13/2024 7:10 PM ENTRY ANALYST [facility] Blood CENTRAL VENOUS CATHETER / Unknown VAD(CVC, PICC) / Unknown 06/13/2024 6:32 PM ENTRY ANALYST 06/13/2024 6:52 PM ENTRY ANALYST Rl Elias MD LAB - BLOOD ORDER SYD Final Result [facility] [place] [facility] [address] [facility], [address] [place] [address] * (ABNORMAL) RBC and Platelet Morphology (06/13/2024 6:00 AM ENTRY ANALYST) RBC Morphology Confirmed RBC Indices 06/13/2024 3:45 PM ENTRY ANALYST [facility] Platelet Assessment Automated Count Confirmed. Platelet morphology is normal. Automated Count Confirmed. Platelet morphology is normal. 06/13/2024 3:45 PM ENTRY ANALYST [facility] Polychromasia Moderate(A) None Seen 06/13/2024 3:45 PM ENTRY ANALYST [facility] Sickle Cells Moderate(A) None Seen 06/13/2024 3:45 PM ENTRY ANALYST [facility] Target Cells Moderate(A) None Seen 06/13/2024 3:45 PM ENTRY ANALYST [facility] Pathologist Review Comments (Blood) Sickle shaped red blood cells are present compatible with patient's history of sickle cell disease. [place] bodies are present compatible with hyposplenic blood picture. There is increased lymphocytes; however, the morphology of lymphocytes is polymorphous. Follow up CBC, diff for resolution of this findings is recommended. Danny Martinez MD on 06/13/2024 at 3:44 PM 06/13/2024 3:45 PM ENTRY ANALYST [facility] Comment:This is an appended report. These results have been appended to a previously final verified report. Blood VENOUS LINE / Unknown IVAD (Port) / Unknown 06/13/2024 6:00 AM ENTRY ANALYST 06/13/2024 6:16 AM ENTRY ANALYST us Laquita Kelley MD LAB - BLOOD ORDERABLES Edited R esult - Final [facility] [address] [facility], [address] [place] [phone], [facility] [place] [facility] [address] [facility], [address] [place] [phone], [facility] * (ABNORMAL) CBC with platelets and differential (06/13/2024 6:00 AM ENTRY ANALYST) WBC Count 17.0(H) 4.0 - 11.0 10e3/uL 06/13/2024 9:51 AM ENTRY ANALYST [facility] RBC Count 2.11(L) 3.80 - 5.20 10e6/uL 06/13/2024 9:51 AM ENTRY ANALYST [facility] Hemoglobin 6.4(LL) 11.7 - 15.7 g/dL 06/13/2024 9:51 AM ENTRY ANALYST [facility] Hematocrit 20.3(L) 35.0 - 47.0 % 06/13/2024 9:51 AM ENTRY ANALYST [facility] MCV 96 78 - 100 fL 06/13/2024 9:51 AM ENTRY ANALYST [facility] MCH 30.3 26.5 - 33.0 pg 06/13/2024 9:51 AM ENTRY ANALYST [facility] MCHC 31.5 31.5 - 36.5 g/dL 06/13/2024 9:51 AM ENTRY ANALYST [facility] RDW 19.8(H) 10.0 - 15.0 % 06/13/2024 9:51 AM ENTRY ANALYST [facility] Platelet Count 458(H) 150 - 450 10e3/uL 06/13/2024 9:51 AM ENTRY ANALYST [facility] % Neutrophils 40 % 06/13/2024 9:51 AM ENTRY ANALYST [facility] % Lymphocytes 42 % 06/13/2024 9:51 AM ENTRY ANALYST [facility] % Monocytes 13 % 06/13/2024 9:51 AM ENTRY ANALYST [facility] % Eosinophils 3 % 06/13/2024 9:51 AM ENTRY ANALYST [facility] % Basophils 1 % 06/13/2024 9:51 AM ENTRY ANALYST [facility] % Immature Granulocytes 1 % 06/13/2024 9:51 AM ENTRY ANALYST [facility] NRBCs per 100 WBC 0 <1 /100 025 9:51 AM ENTRY ANALYST [facility] Absolute Neutrophils 6.7 1.6 - 8.3 10e3/uL 06/13/2024 9:51 AM ENTRY ANALYST [facility] Absolute Lymphocytes 7.2(H) 0.8 - 5.3 10e3/uL 06/13/2024 9:51 AM ENTRY ANALYST [facility] Absolute Monocytes 2.2(H) 0.0 - 1.3 10e3/uL 06/13/2024 9:51 AM ENTRY ANALYST [facility] Absolute Eosinophils 0.5 0.0 - 0.7 10e3/uL 06/13/2024 9:51 AM ENTRY ANALYST [facility] Absolute Basophils 0.2 0.0 - 0.2 10e3/uL 06/13/2024 9:51 AM ENTRY ANALYST [facility] Absolute Immature Granulocytes 0.1 <=0.4 10e3/uL 06/13/2024 9:51 AM ENTRY ANALYST [facility] Absolute NRBCs 0.1 10e3/uL 06/13/2024 9:51 AM ENTRY ANALYST [facility] Blood VENOUS LINE / Unknown IVAD (Port) / Unknown 06/13/2024 6:00 AM ENTRY ANALYST 06/13/2024 6:16 AM ENTRY ANALYST Narrative [facility] - 06/13/2024 9:51 AM ENTRY ANALYST Sent for review by Pathologist. See Pathologist comments after review. Tech Comments Patient Diagnosis: Sickle Cell crisis Reason for Sending: absolute lymphocyte > 5.4 us Laquita Kelley MD LAB - BLOOD ORDERABLES Final Re sult [facility] [address] [facility], [address] [facility] [place] [facility] [address] [facility], [address] * (ABNORMAL) Basic metabolic panel (06/13/2024 5:59 AM ENTRY ANALYST) Sodium 135 135 - 145 mmol/L 06/13/2024 6:45 AM ENTRY ANALYST [facility] Potassium 4.3 3.4 - 5.3 mmol/L 06/13/2024 6:45 AM ENTRY ANALYST [facility] Chloride 105 98 - 107 mmol/L 06/13/2024 6:45 AM ENTRY ANALYST [facility] Carbon Dioxide (CO2) 21(L) 22 - 29 mmol/L 06/13/2024 6:45 AM ENTRY ANALYST [facility] Anion Gap 9 7 - 15 mmol/L 06/13/2024 6:45 AM ENTRY ANALYST [facility] Urea Nitrogen 4.9(L) 6.0 - 20.0 mg/dL 06/13/2024 6:45 AM ENTRY ANALYST [facility] Creatinine 0.70 0.51 - 0.95 mg/dL 06/13/2024 6:45 AM ENTRY ANALYST [facility] GFR Estimate >90 >60 mL/min/1.7 3m2 06/13/2024 6:45 AM ENTRY ANALYST [facility] Comment:eGFR calculated 2020 CKD-EPI equation. Calcium 8.7(L) 8.8 - 10.4 mg/dL 06/13/2024 6:45 AM ENTRY ANALYST [facility] Glucose 100(H) 70 - 99 mg/dL 06/13/2024 6:45 AM ENTRY ANALYST [facility] Blood VENOUS LINE / Unknown IVAD (Port) / Unknown 06/13/2024 5:59 AM ENTRY ANALYST 06/13/2024 6:16 AM ENTRY ANALYST Laquita Kelley MD LAB - BLOOD ORDERABLES Final Re sult [facility] Core Lab [address] [facility], [address] [place] [phone] * Respiratory Panel PCR (06/12/2024 9:34 PM ENTRY ANALYST) Adenovirus Not Detected Not Detected 06/12/2024 11:53 PM ENTRY ANALYST [facility] Coronavirus Not Detected Not Detected 06/12/2024 11:53 PM ENTRY ANALYST [facility] Comment:This test detects Co ronavirus 229E, HKU1, NL63 and OC43 but does not distinguish between them. It does not detect MERS ( Respiratory Syndrome), SARS (Severe Acute Respiratory Syndrome) or 2019-nCoV (Novel 2019) Coronavirus. Human Metapneumovirus Not Detected Not Detected 06/12/2024 11:53 PM ENTRY ANALYST [facility] Human Rhin/Enterovirus Not Detected Not Detected 06/12/2024 11:53 PM ENTRY ANALYST [facility] Influenza A Not Detected Not Detected 06/12/2024 11:53 PM ENTRY ANALYST [facility] Influenza A, H1 Not Detected Not Detected 06/12/2024 11:53 PM ENTRY ANALYST [facility] Influenza A 2009 H1N1 Not Detected Not Detected 06/12/2024 11:53 PM ENTRY ANALYST [facility] Influenza A, H3 Not Detected Not Detected 06/12/2024 11:53 PM ENTRY ANALYST [facility] Influenza B Not Detected Not Detected 06/12/2024 11:53 PM ENTRY ANALYST [facility] Parainfluenza Virus 1 Not Detected Not Detected 06/12/2024 11:53 PM ENTRY ANALYST [facility] Parainfluenza Virus 2 Not Detected Not Detected 06/12/2024 11:53 PM ENTRY ANALYST [facility] Parainfluenza Virus 3 Not Detected Not Detected 06/12/2024 11:53 PM ENTRY ANALYST [facility] Parainfluenza Virus 4 Not Detected Not Detected 06/12/2024 11:53 PM ENTRY ANALYST [facility] Respiratory Syncytial Virus A Not Detected Not Detected 06/12/2024 11:53 PM ENTRY ANALYST [facility] Respiratory Syncytial Virus B Not Detected Not Detected 06/12/2024 11:53 PM ENTRY ANALYST [facility] Chlamydia Pneumoniae Not Detected Not Detected 06/12/2024 11:53 PM ENTRY ANALYST [facility] Mycoplasma Pneumoniae Not Detected Not Detected 06/12/2024 11:53 PM ENTRY ANALYST [facility] Swab NASOPHARYNGEAL STRUCTURE / Unknown Non-blood Collection / Unknown 06/12/2024 9:34 PM ENTRY ANALYST 06/12/2024 9:47 PM ENTRY ANALYST Narrative [facility] - 06/12/2024 11:53 PM ENTRY ANALYST The ePlex Respiratory Panel is a qualitative nucleic acid, multiplex, in vitro diagnostic test for the simultaneous detection and identification of multiple respiratory viral and bacterial nucleic acids in nasopharyngeal swabs collected in viral transport media from individual exhibiting signs and symptoms of respiratory infection. The assay has received FDA approval for the testing of nasopharyngeal (ACID REGENERATOR) swabs only. This test is used for clinical purposes and should not be regarded as investigational or for research. This laboratory is certified under the Clinical Laboratory Improvement Amendments of 1988 (CLIA-88) as qualified to perform high complexity clinical laboratory testing. us Abdelrahman Goddard MD LAB - MICRO GENERAL ORDERABLES Final Result [facility] Inf. Diseases Diag. Lab [address] [facility], [address] [place] [address], [facility] * Blood Culture Peripheral Blood (06/12/2024 8:46 PM ENTRY ANALYST) Culture No Growth 06/17/2024 9:31 PM ENTRY ANALYST [facility] Blood BLOOD SPECIMEN / Unknown Venipuncture / Unknown 06/12/2024 8:46 PM ENTRY ANALYST 06/12/2024 8:53 PM ENTRY ANALYST Narrative [facility] - 06/17/2024 9:31 PM ENTRY ANALYST Only an Aerobic Blood Culture Bottle was collected, interpret results with caution. us Abdelrahman Goddard MD LAB - MICRO GENERAL ORDERABLES Final Result [facility] Inf. Diseases Diag. Lab [address] [facility], [address] * Blood Culture Peripheral Blood (06/12/2024 8:46 PM ENTRY ANALYST) Culture No Growth 06/17/2024 9:31 PM ENTRY ANALYST [facility] Blood BLOOD SPECIMEN / Unknown Venipuncture / Unknown 06/12/2024 8:46 PM ENTRY ANALYST 06/12/2024 8:53 PM ENTRY ANALYST us Abdelrahman Goddard MD LAB - MICRO GENERAL ORDERABLES Final Result Performing Organization Address City/[facility] Co de Phone Number [facility] Inf. Diseases Diag. Lab [address] [facility], [address] * XR Chest 2 Views (06/12/2024 7:38 PM ENTRY ANALYST) Anatomical Region Laterality Modality Chest Computed Radiogr aphy 06/12/2024 7:38 PM ENTRY ANALYST Impressions 06/12/2024 7:42 PM ENTRY ANALYST IMPRESSION: A few faint peripheral reticulonodular opacities in the mid and lower lungs again seen. Lungs otherwise clear. No pleural effusion. No pneumothorax. Borderline cardiac enlargement unchanged. Port anterior right chest wall with right IJ central venous catheter tip low SVC. Port anterior left chest wall with left IJ central venous catheter tip low SVC. Narrative 06/12/2024 7:42 PM ENTRY ANALYST EXAM: XR CHEST 2 VIEWS LOCATION: [facility] DATE: 06/12/2024 INDICATION: CP COMPARISON: 06/03/2024, 05/27/2024 Procedure Note Surendra Hou MD - 06/12/2024 EXAM: XR CHEST 2 VIEWS LOCATION: [facility] DATE: 06/12/2024 INDICATION: CP COMPARISON: 06/03/2024, [...] Adult Type and Screen (06/12/2024 7:17 PM ENTRY ANALYST) Pathologist [facility] ABO/RH(D) A POS 06/13/2024 9:17 AM ENTRY ANALYST [facility] Antibody Screen Negative Negative 06/13/2024 9:17 AM ENTRY ANALYST [facility] Comment:Current antibody scr een is negative. Patient has a history of antibody(ies). A delay in compatible red blood cells may occur. SPECIMEN EXPIRATION DATE [id number] 06/13/2024 9:17 AM ENTRY ANALYST [facility] Blood BLOOD SPECIMEN / Unknown Venipuncture / Unknown 06/12/2024 7:17 PM ENTRY ANALYST 06/12/2024 7:32 PM ENTRY ANALYST us Carmen Aviles PA-C LAB - BLOOD BANK TEST ORDER Final Result U BLOOD BANK [address] [place] [address], [facility] * (ABNORMAL) RBC and Platelet Morphology (06/12/2024 7:17 PM ENTRY ANALYST) RBC Morphology Confirmed RBC Indices 06/12/2024 8:57 PM ENTRY ANALYST [facility] Platelet Assessment Automated Count Confirmed. Platelet morphology is normal. Automated Count Confirmed. Platelet morphology is normal. 06/12/2024 8:57 PM ENTRY ANALYST [facility] Polychromasia Slight(A) None Seen 06/12/2024 8:57 PM ENTRY ANALYST [facility] Sickle Cells Moderate(A) None Seen 06/12/2024 8:57 PM ENTRY ANALYST [facility] Target Cells Moderate(A) None Seen 06/12/2024 8:57 PM ENTRY ANALYST [facility] Blood BLOOD SPECIMEN / Unknown Venipuncture / Unknown 06/12/2024 7:17 PM ENTRY ANALYST 06/12/2024 7:32 PM ENTRY ANALYST us Abdelrahman Goddard MD LAB - BLOOD ORDERABLES Final R esult [facility] [place] [facility] Lab [address] [facility], [address] [phone] * (ABNORMAL) CBC with platelets and differential (06/12/2024 7:17 PM ENTRY ANALYST) Pathologist [facility] WBC Count 12.5(H) 4.0 - 11.0 10e3/uL 06/12/2024 7:54 PM ENTRY ANALYST [facility] RBC Count 2.44(L) 3.80 - 5.20 10e6/uL 06/12/2024 7:54 PM ENTRY ANALYST [facility] Hemoglobin 7.5(L) 11.7 - 15.7 g/dL 06/12/2024 7:54 PM ENTRY ANALYST [facility] Hematocrit 22.2(L) 35.0 - 47.0 % 06/12/2024 7:54 PM ENTRY ANALYST [facility] MCV 91 78 - 100 fL 06/12/2024 7:54 PM ENTRY ANALYST [facility] MCH 30.7 26.5 - 33.0 pg 06/12/2024 7:54 PM ENTRY ANALYST [facility] MCHC 33.8 31.5 - 36.5 g/dL 06/12/2024 7:54 PM ENTRY ANALYST [facility] RDW 19.5(H) 10.0 - 15.0 % 06/12/2024 7:54 PM ENTRY ANALYST [facility] Platelet Count 542(H) 150 - 450 10e3/uL 06/12/2024 7:54 PM ENTRY ANALYST [facility] % Neutrophils 57 % 06/12/2024 7:54 PM ENTRY ANALYST [facility] % Lymphocytes 24 % 06/12/2024 7:54 PM ENTRY ANALYST [facility] % Monocytes 16 % 06/12/2024 7:54 PM ENTRY ANALYST [facility] % Eosinophils 1 % 06/12/2024 7:54 PM ENTRY ANALYST [facility] % Basophils 1 % 06/12/2024 7:54 PM ENTRY ANALYST [facility] % Immature Granulocytes 0 % 06/12/2024 7:54 PM ENTRY ANALYST [facility] NRBCs per 100 WBC 1(H) <1 /100 025 7:54 PM ENTRY ANALYST [facility] Absolute Neutrophils 7.1 1.6 - 8.3 10e3/uL 06/12/2024 7:54 PM ENTRY ANALYST [facility] Absolute Lymphocytes 3.0 0.8 - 5.3 10e3/uL 06/12/2024 7:54 PM ENTRY ANALYST [facility] Absolute Monocytes 2.0(H) 0.0 - 1.3 10e3/uL 06/12/2024 7:54 PM ENTRY ANALYST [facility] Absolute Eosinophils 0.2 0.0 - 0.7 10e3/uL 06/12/2024 7:54 PM ENTRY ANALYST [facility] Absolute Basophils 0.2 0.0 - 0.2 10e3/uL 06/12/2024 7:54 PM ENTRY ANALYST [facility] Absolute Immature Granulocytes 0.1 <=0.4 10e3/uL 06/12/2024 7:54 PM ENTRY ANALYST [facility] Absolute NRBCs 0.1 10e3/uL 06/12/2024 7:54 PM ENTRY ANALYST [facility] Blood BLOOD SPECIMEN / Unknown Venipuncture / Unknown 06/12/2024 7:17 PM ENTRY ANALYST 06/12/2024 7:32 PM ENTRY ANALYST us Abdelrahman Goddard MD LAB - BLOOD ORDERABLES Final R esult [facility] [place] [facility] Lab [address] [facility], [address] [place] [address], [facility] * (ABNORMAL) Blood gas venous (06/12/2024 7:17 PM ENTRY ANALYST) pH Venous 7.38 7.32 - 7.43 06/12/2024 7:40 PM ENTRY ANALYST [facility] pCO2 Venous 42 40 - 50 mm Hg 06/12/2024 7:40 PM ENTRY ANALYST [facility] pO2 Venous 35 25 - 47 mm Hg 06/12/2024 7:40 PM ENTRY ANALYST [facility] Bicarbonate Venous 24 21 - 28 mmol/L 06/12/2024 7:40 PM ENTRY ANALYST [facility] Base Excess/Deficit Venous -0.9 -3.0 - 3.0 mmol/L 06/12/2024 7:40 PM ENTRY ANALYST [facility] FIO2 21 JARET 06/12/2024 7:40 PM ENTRY ANALYST [facility] Oxyhemoglobin Venous 61(L) 70 - 75 % 06/12/2024 7:40 PM ENTRY ANALYST [facility] O2 Sat, Venous 63.9(L) 70.0 - 75.0 % 06/12/2024 7:40 PM ENTRY ANALYST [facility] Blood, venous VENOUS LINE / Unknown Venipuncture / Unknown 06/12/2024 7:17 PM ENTRY ANALYST 06/12/2024 7:30 PM ENTRY ANALYST Narrative [facility] - 06/12/2024 7:40 PM ENTRY ANALYST In healthy individuals, oxyhemoglobin (O2Hb) and oxygen saturation (SO2) are approximately equal. In the presence of dyshemoglobins, oxyhemoglobin can be considerably lower than oxygen saturation. us Abdelrahman Goddard MD LAB - BLOOD ORDERABLES Final R esult [facility] [place] [facility] Lab [address] [facility], [address] [place] [address] * Troponin T, High Sensitivity (06/12/2024 7:17 PM ENTRY ANALYST) Troponin T, High Sensitivity <6 <=14 ng/L 06/12/2024 8:03 PM ENTRY ANALYST [facility] Comment: Either a High Sensitivity [...] Unknown Venipuncture / Unknown 06/12/2024 7:17 PM ENTRY ANALYST 06/12/2024 7:32 PM ENTRY ANALYST Abdelrahman Goddard MD LAB - BLOOD ORDERABLES Final R esult [facility] [place] [facility] [address] [facility], [address] [place] [address] * (ABNORMAL) Basic metabolic panel (06/12/2024 7:17 PM ENTRY ANALYST) Sodium 139 135 - 145 mmol/L 06/12/2024 8:03 PM ENTRY ANALYST [facility] Potassium 4.3 3.4 - 5.3 mmol/L 06/12/2024 8:03 PM ENTRY ANALYST [facility] Chloride 109(H) 98 - 107 mmol/L 06/12/2024 8:03 PM ENTRY ANALYST [facility] Carbon Dioxide (CO2) 21(L) 22 - 29 mmol/L 06/12/2024 8:03 PM ENTRY ANALYST [facility] Anion Gap 9 7 - 15 mmol/L 06/12/2024 8:03 PM ENTRY ANALYST [facility] Urea Nitrogen 5.9(L) 6.0 - 20.0 mg/dL 06/12/2024 8:03 PM ENTRY ANALYST [facility] Creatinine 0.61 0.51 - 0.95 mg/dL 06/12/2024 8:03 PM ENTRY ANALYST [facility] GFR Estimate >90 >60 mL/min/1.7 3m2 06/12/2024 8:03 PM ENTRY ANALYST [facility] Comment:eGFR calculated usin 2020 CKD-EPI equation. Calcium 9.4 8.8 - 10.4 mg/dL 06/12/2024 8:03 PM ENTRY ANALYST [facility] Glucose 97 70 - 99 mg/dL 06/12/2024 8:03 PM ENTRY ANALYST U LABORATORY Blood BLOOD SPECIMEN / Unknown Venipuncture / Unknown 06/12/2024 7:17 PM ENTRY ANALYST 06/12/2024 7:32 PM ENTRY ANALYST us Abdelrahman Goddard MD LAB - BLOOD ORDERABLES Final R esult LABORATORY [facility] Core Lab [address] [facility], [address] * (ABNORMAL) INR (06/12/2024 7:17 PM ENTRY ANALYST) INR 1.37(H) 0.85 - 1.15 06/12/2024 7:54 PM ENTRY ANALYST LABORATORY Blood BLOOD SPECIMEN / Unknown Venipuncture / Unknown 06/12/2024 7:17 PM ENTRY ANALYST 06/12/2024 7:32 PM ENTRY ANALYST Abdelrahman oGddard MD LAB - BLOOD ORDERABLES Final R esult LABORATORY [facility] Core Lab [address] [facility], [address] * EKG 12-lead, tracing only (06/12/2024 6:37 PM ENTRY ANALYST) Systolic Blood Pressure mmHg RADIOLOGY RESULTS Diastolic Blood Pressure mmHg RADIOLOGY RESULTS Ventricular Rate 94 BPM RAD IOLOGY RESULTS Atrial Rate 94 BPM RADIOLOG Y RESULTS MO Interval 146 ms RADIOLOG Y RESULTS QRS Duration 84 ms RADIOLO GY RESULTS QT 346 ms RADIOLOGY RESULTS QTc 432 ms RADIOLOGY RESULTS P [place] 31 degrees RADIOLOGY RESULTS R AXIS 85 degrees RADIOLOGY RESULTS T [place] 36 degrees RADIOLOGY RESULTS Interpretation ECG Sinus rhythm Normal ECG Unconfirmed report - interpretation of this ECG is computer generated - see medical record for final interpretation Confirmed by - EMERGENCY ROOM, PHYSICIAN ([id number]), editorial assistant CLAUDIO ASTORGA [id number]) on 06/13/2024 7:17:59 AM RADIOLOGY RESULTS 06/12/2024 6:37 PM ENTRY ANALYST 06/13/2024 7:17 AM ENTRY ANALYST us Alex Morton MD ECG ORDERABLES Edited [...] within 2 weeks. $Given 06/15/2024 8:05 AM ENTRY ANALYST 2 puffs $Given 06/14/2024 7:59 PM ENTRY ANALYST 2 puffs $Given 06/14/2024 4:39 PM ENTRY ANALYST 2 puffs albuterol (PROVENTIL HFA/VENTOLIN HFA) inhaler [...] Indications: SepsisIndications:Sepsis $New Bag 06/12/2024 9:31 PM ENTRY ANALYST 500 mg 250 mL /hr azithromycin (ZITHROMAX) 500 mg in sodium chloride 0.9 % 250 mL intermittent infusion Routine, 500 mg, Intravenous, EVERY 24 HOURS, First dose on Wed06/13/24 at 2100, Indications: Acute chest syndromeIndications:Acute chest syndrome $New Bag 06/13/2024 10:04 PM ENTRY ANALYST 500 mg azithromycin (ZITHROMAX) tablet 500 mg Routine, 500 mg, Oral, DAILY, First dose on Wed06/14/24 at 1200, Indications: Community Acquired PneumoniaIndications:Community Acquired Pneumonia $Given 06/15/2024 8:05 AM ENTRY ANALYST 500 mg $Given 06/14/2024 12:38 PM ENTRY ANALYST 500 mg cefTRIAXone (ROCEPHIN) 1 g vial to attach to NS 100 mL bag for ADULTS or NS 50 mL bag for PEDS STAT, 1 g, Intravenous, ONCE, On Wed06/12/24 at 2005, For 1 dose, Lactated Ringer's solution is not compatible with ceftriaxone for injection, Indications: SepsisIndications:Sepsis $New Bag 06/12/2024 8:39 PM ENTRY ANALYST 1 g cefTRIAXone (ROCEPHIN) 2 g vial to attach to NS 100 ml bag for ADULTS or NS 50 ml bag for PEDS Routine, 2 g, Intravenous, EVERY 24 HOURS, First dose on Wed06/13/24 at 2000, Lactated Ringer's solution is not compatible with ceftriaxone for injection, Indications: Acute chest syndromeIndications:Acute chest syndrome $New Bag 06/14/2024 8:00 PM ENTRY ANALYST 2 g $New Bag 06/13/2024 8:16 PM ENTRY ANALYST 2 g diclofenac (VOLTAREN) 1 % topical gel 2 g 2 g, Topical, 4 TIMES DAILY PRN, inflammatory pain, Starting on Wed06/14/24 at 0912, Apply to area of pain. Use supplied dosing card to measure dose. $Given 06/15/2024 8:10 AM ENTRY ANALYST 2 g $Given 06/14/2024 12:38 PM ENTRY ANALYST 2 g diphenhydrAMINE (BENADRYL) capsule 25 mg 25 mg, Oral, EVERY 6 HOURS PRN, itching, Starting on Wed06/12/24 at 2139 $Given 06/14/2024 12:38 PM ENTRY ANALYST 25 mg $Given 06/13/2024 10:54 PM ENTRY ANALYST 25 mg $Given 06/13/2024 12:12 PM ENTRY ANALYST 25 mg diphenhydrAMINE (BENADRYL) injection 25 mg 25 mg, Intravenous, EVERY 6 HOURS PRN, itching, Starting on Wed06/12/24 at 2139 $Given 06/13/2024 5:39 AM ENTRY ANALYST 25 mg $Given 06/12/2024 10:41 PM ENTRY ANALYST 25 mg enoxaparin ANTICOAGULANT (LOVENOX) injection 40 mg 40 mg, Subcutaneous, EVERY 24 HOURS, First dose on Wed06/13/24 at 0800, Contact provider if platelet count drops by 50% or more after enoxaparin initiation OR if platelet count falls below 50 x 10e3/uL $Given 06/15/2024 7:59 AM ENTRY ANALYST 40 mg $Given 06/14/2024 8:29 AM ENTRY ANALYST 40 mg $Given 06/13/2024 7:49 AM ENTRY ANALYST 40 mg FLUoxetine (PROzac) capsule 10 mg 10 mg, Oral, DAILY, First dose on Wed06/13/24 at 0800 $Given 06/14/2024 2:37 PM ENTRY ANALYST 10 mg $Given 06/13/2024 7:50 AM ENTRY ANALYST 10 mg folic acid (FOLVITE) tablet 1 mg 1 mg, Oral, DAILY, First dose on Wed06/13/24 at 0800 $Given 06/15/2024 8:05 AM ENTRY ANALYST 1 mg $Given 06/14/2024 8:29 AM ENTRY ANALYST 1 mg $Given 06/13/2024 7:49 AM ENTRY ANALYST 1 mg heparin lock flush 10 unit/mL [...] For 1 dose $Given 06/12/2024 7:24 PM ENTRY ANALYST 2 mg hydromorphone (DILAUDID) injection 2 mg 2 mg, Intravenous, ONCE, On Wed06/12/24 at 2010, For 1 dose $Given 06/12/2024 8:14 PM ENTRY ANALYST 2 mg hydromorphone (DILAUDID) injection 2 mg 2 mg, Intravenous, EVERY 3 HOURS PRN, moderate pain, IF patient cannot take oral opioid OR IF pain not managed with non-pharmacological, non-opioid, or oral opioid interventions if ordered, Starting on Wed06/12/24 at 2237, May use concomitant with non-opioid analgesics. $Given 06/12/2024 11:31 PM ENTRY ANALYST 2 mg hydromorphone (DILAUDID) injection 2 mg 2 mg, Intravenous, ONCE, On Wed06/12/24 at 2135, For 1 dose $Given 06/12/2024 9:46 PM ENTRY ANALYST 2 mg hydromorphone (DILAUDID) injection 2 mg 2 mg, Intravenous, EVERY 2 HOURS PRN, moderate pain, IF patient cannot take oral opioid OR IF pain not managed with non-pharmacological, non-opioid, or oral opioid interventions if ordered, Starting on Wed06/13/24 at 0132, May use concomitant with non-opioid analgesics. $Given 06/14/2024 12:38 PM ENTRY ANALYST 2 mg $Given 06/14/2024 10:31 AM ENTRY ANALYST 2 mg $Given 06/14/2024 8:29 AM ENTRY ANALYST 2 mg hydromorphone (DILAUDID) injection 2 mg 2 mg, Intravenous, EVERY 2 HOURS, First dose (after last modification) on Wed06/14/24 at 1415, May use concomitant with non-opioid analgesics. $Given 06/15/2024 7:58 AM ENTRY ANALYST 2 mg $Given 06/15/2024 6:01 AM ENTRY ANALYST 2 mg $Given 06/15/2024 4:11 AM ENTRY ANALYST 2 mg hydroxyurea (HYDREA) capsule 1,000 mg 1,000 mg, Oral, 2 TIMES DAILY, First dose on Wed06/12/24 at 2330, Indications: sickle cell anemia, Do not crush May require hepatic and/or renal dose or frequency adjustments. See reference link for guidelines.Indications:sickle cell anemia $Given 06/15/2024 8:06 AM ENTRY ANALYST 1,000 mg $Given 06/14/2024 8:00 PM ENTRY ANALYST 1,000 mg $Given 06/14/2024 8:30 AM ENTRY ANALYST 1,000 mg lactated ringers infusion at 75 mL/hr, Intravenous, CONTINUOUS, Starting on Wed06/12/24 at 2240, Until Wed06/13/24 at 0839 Rate/Dose Verify 06/13/2024 7:02 AM ENTRY ANALYST 75 mL/hr Rate/Dose Verify 06/13/2024 4:52 AM ENTRY ANALYST 75 mL/h r Rate/Dose Verify 06/13/2024 1:35 AM ENTRY ANALYST 75 mL/h r Lidocaine (LIDOCARE) 4 % [...] Wed06/12/24 at 2138 $Given 06/13/2024 1:28 AM ENTRY ANALYST 5 mg menthol (ICY HOT) 5 % [...] Liquid not required. $Given 06/14/2024 9:20 AM ENTRY ANALYST 4 mg ondansetron (ZOFRAN) injection 4 mg 4 mg, Intravenous, ONCE, Administer over 2-5 Minutes, On Wed06/12/24 at 1850, For 1 dose $Given 06/12/2024 7:24 PM ENTRY ANALYST 4 mg ondansetron (ZOFRAN) injection 4 mg 4 mg, Intravenous, EVERY 6 HOURS PRN, nausea/vomiting - 1st line, Administer over 2-5 Minutes, Starting on Wed06/12/24 at 2237, Give IF patient unable to tolerate oral medication. This is Step 1 of nausea and vomiting management. If nausea not resolved in 15 minutes, go to Step 2 prochlorperazine (COMPAZINE). $Given 06/15/2024 4:19 AM ENTRY ANALYST 4 mg senna-docusate (SENOKOT-S/PERICOLACE) 8.6-50 MG per [...] IV dormant line $Given 06/15/2024 6:32 AM ENTRY ANALYST 3 mLs $Given 06/13/2024 8:37 PM ENTRY ANALYST 3 mLs $Given 06/13/2024 2:12 PM ENTRY ANALYST 3 mLs sodium chloride (PF) 0.9% PF flush 3 mL 3 mL, Intracatheter, EVERY 1 MIN PRN, line flush, other, to ensure patency or to lock dormant line, Starting on Wed06/12/24 at 2237 $Given 06/14/2024 2:4 2 PM ENTRY ANALYST 3 mLs $Given 06/14/2024 8:30 AM ENTRY ANALYST 3 mLs $Given 06/14/2024 1:32 AM ENTRY ANALYST 3 mLs sodium chloride 0.9% BOLUS 1,000 mL Intravenous, 1,000 mL, ONCE, at 1,000 mL/hr, Administer over 1 Hours, On Wed06/12/24 at 1850, For 1 dose $New Bag 06/12/2024 7:22 PM ENTRY ANALYST 1,000 mLs 1000 mL/hr documented in this encounter Active and Recently Administered Medications Times are shown in ENTRY ANALYST. Scheduled Medication Order 06/13/2024 06/14/2024 06/15/2024 albuterol [...] at 0800 0749 ($Given - Provider: Xu Raiv RN) 0829 ($Given - Provider: Clay Avina, [...] Provider: Clay Avina, RN)1031 ($Given - Provider: Caly Avina RN)1238 ($Given - Provider: Ang Charles [...] 0920 ($Given - Provider: Clay Avina RN) 5094 (See Alternative - Provider: Kathy Levy RN) [...] (See Alternative - Provider: Clay Avina RN) 2936 ($Given - Provider: Kathy Levy RN) senna-docusate [...] stools. documented in this encounter Care Teams Hydrology Teacher Relationship Specialty Start Date End Date No Ref-Primary, Physician PCP - General 03/15/24 06/17/24 Mor Ramsey Medical Student 04/03/24 Case Samuel MD [address] [place] [address] [address], [address] [place] [address] Assigned Pediatric Specialist Provider 05/18/24 Juhi Benson, RN Specialty Wildlife Photographer Hematology & Oncology 05/29/24 documented as of this encounter
--- OUTSIDE RECORDS SUMMARY | 2024-06-30 23:57 | XMS_ITS | Encounter Summary ---
Author Organization [facility] Address [address] [place] [address]. [place] [address] Care Team Providers Care Project Construction Assistant Manager Name Role Phone No Ref-Primary, Physician Primary Care Provider Mor Ramsey Unavailable Unavailable Case Samuel MD Unavailable [phone] Juhi Benson RN Unavailable Unavailable Encounter Details [...] file Legal Sex Female 8:25 AM MUSIC THEORY PROFESSOR Gender Identity Not on file Sexual Orientation Not on file documented as of this encounter Plan of Treatment Upcoming Encounters Date Type Department Care Team (Late st Contact Info) Description 07/10/2024 11:30 AM CDT Oncology Visit [facility] [address] [place] [address] Case Samuel MD [address] [place] [address] [address], [address] [place] [address] documented as of this encounter Goals Goal Patient Goal Type Associated Problems Recent Progress Patient-Stated? Author Pain Management General On track( 025 12:40 PM MUSIC THEORY PROFESSOR) Yes Juhi Benson, RN Note: Goal Statement: [...] on filedocumented in this encounter Care Teams Project Construction Assistant Manager Relationship Specialty Start Date End Date No Ref-Primary, Physician PCP - General 03/15/24 06/17/24 Mor Ramsey Medical Student 04/03/24 Case Samuel MD [address] [place] [address] [address], [address] [place] [address] Assigned Pediatric Specialist Provider 05/18/24 Juhi Benson, RN Specialty Die Engraver Hematology & Oncology 05/29/24 documented as of this encounter
--- OUTSIDE RECORDS SUMMARY | 2024-06-30 23:57 | XMS_ITS | Encounter Summary ---
Author Organization [facility] Address [address] [place] [address]. [place] [address] Care Team Providers Care Molder Hand Name Role Phone Roxy Mor Unavailable Unavailable Case Samuel MD Unavailable [phone] Juhi Benson RN Unavailable Unavailable Veronica Joseph MD Primary Care Provider [phone] Encounter Details Date Type Department Care Team [...] on file Legal Sex Female 8:25 AM PROGRAMMING DEVELOPMENT PROJECT MANAGER Gender Identity Not on file Sexual Orientation Not on file documented as of this encounter Plan of Treatment Upcoming Encounters Date Type Department Care Team (Late st Contact Info) Description 07/10/2024 11:30 AM CDT Oncology Visit [facility] [address] [place] [address] Case Samuel MD [address] [place] [address] [address], [address] [place], [place] [id number] documented as of this encounter Goals Goal Patient Goal Type Associated Problems Recent Progress Patient-Stated? Author Pain Management General On track( 025 12:40 PM PROGRAMMING DEVELOPMENT PROJECT MANAGER) Yes Juhi Benson RN Note: Goal [...] on filedocumented in this encounter Care Teams Molder Hand Relationship Specialty Start Date End Date Veronica Joseph MD [address] [place] [address] PCP - General Family Medicine 06/18/24 Mor Ramsey Medical Student 04/03/24 Case Samuel MD [address] [place] [address] [address], [address] [place] [address] Assigned Pediatric Specialist Provider 05/18/24 Juhi Benson, RN Specialty Head Cd Reactor Operator Hematology & Oncology 05/29/24 documented as of this encounter
--- OUTSIDE RECORDS SUMMARY | 2024-06-30 23:57 | XMS_ITS | Encounter Summary ---
Author Organization [facility] Address [address] [place] [id number] Care Team Providers Care English Language Learner Tutor Name Role Phone RoxyElvirac Unavailable Unavailable Case Samuel MD Unavailable [phone] Juhi Benson RN Unavailable Unavailable Veronica Joseph MD Primary Care Provider [phone] Reason for Visit * Reason Comments Sickle Cell Pain Crisis Pt reports pain in back and b/l legs Encounter Details Date Type Department Care Team (Late st Contact Info) Description 06/23/2024 6:03 PM BIZTALK DEVELOPER - 06/23/2024 9:47 PM BIZTALK DEVELOPER Emergency [facility] Emergency Department [address] [place] [phone] Dayna Crane MD [address] [id number] Sickle cell disease with crisis (H) Discharge [...] on file Legal Sex Female 8:25 AM BIZTALK DEVELOPER Gender Identity Not on file Sexual Orientation Not on file documented as of this encounter Last Filed Vital Signs Vital Sign Reading Time Taken Comments Blood Pressure 114/66 06/23/2024 7:49 PM BIZTALK DEVELOPER Pulse 100 06/23/2024 5:53 PM BIZTALK DEVELOPER Temperature 36.7 C (98 F) 06/23/2024 7:49 PM BIZTALK DEVELOPER Respiratory Rate 16 06/23/2024 7:49 PM BIZTALK DEVELOPER Oxygen Saturation 99% 06/23/2024 7:49 PM BIZTALK DEVELOPER Inhaled Oxygen Concentration - - Weight 52.2 kg (115 lb) 06/23/2024 5:53 PM BIZTALK DEVELOPER Height 154.9 cm (5' 1) 06/23/2024 5:53 PM BIZTALK DEVELOPER Body Mass Index 21.73 06/23/2024 5:53 PM BIZTALK DEVELOPER documented in this encounter Discharge Instructions * Discharge Instructions* Dayna Crane MD - 06/23/2024 9:00 PM BIZTALK DEVELOPER Please make an appointment to follow up with Your Primary Care Provider in 2-3 days. ALK DEVELOPER ALK DEVELOPER * Attachments The following attachments cannot be sent through Care Everywhere. * Sickle Cell Crisis (Angolan) documented in this encounter Medications at Time [...] 05/01/2024 naloxone (NARCAN) 4 MG/0.1ML nasal spray [place] 1 spray (4 mg) into one nostril [...] Booker - 06/23/2024 6:12 PM CST Bed: [facility] Expected date: Expected time: Means of arrival: Comments: X3 monitor: G42 ALK DEVELOPER * Melanie Menon RN - 06/23/2024 5:54 [...] WDL WDL Cognitive/Neuro/Behavioral WDL Cognitive/Neuro/Behavioral WDL WDL ALK DEVELOPER documented in this encounter Plan of Treatment Upcoming Encounters Date Type Department Care Team (Late st Contact Info) Description 07/10/2024 11:30 AM CDT Oncology Visit [facility] [address] [place] [address] Case Samuel MD [address] [place] [address] [address], [address] [place] [address] documented as of this encounter Goals Goal Patient Goal Type Associated Problems Recent Progress Patient-Stated? Author Pain Management General On track( 025 12:40 PM BIZTALK DEVELOPER) Yes Juhi Benson, RN Note: Goal [...] PLATELETS AND DIFFERENTIAL STAT 06/23/2024 6:22 PM BIZTALK DEVELOPER CBC WITH PLATELETS & DIFFERENTIAL STAT 06/23/2024 6:22 PM BIZTALK DEVELOPER HCG QUALITATIVE STAT 06/23/2024 6:22 PM BIZTALK DEVELOPER DIFFERENTIAL STAT 06/23/2024 6:22 PM BIZTALK DEVELOPER COMPREHENSIVE METABOLIC PANEL STAT 06/23/2024 6:22 PM BIZTALK DEVELOPER documented in this encounter Results * (ABNORMAL) Manual Differential (06/23/2024 6:22 PM BIZTALK DEVELOPER) % Neutrophils 73 % 06/23/2024 7:05 PM BIZTALK DEVELOPER [facility] % Lymphocytes 24 % 06/23/2024 7:05 PM BIZTALK DEVELOPER [facility] % Monocytes 2 % 06/23/2024 7:05 PM BIZTALK DEVELOPER [facility] % Eosinophils 0 % 06/23/2024 7:05 PM BIZTALK DEVELOPER [facility] % Basophils 2 % 06/23/2024 7:05 PM BIZTALK DEVELOPER [facility] NRBCs per 100 WBC 12(H) <=0 % 06/23/2024 7:05 PM BIZTALK DEVELOPER [facility] Absolute Neutrophils 7.2 1.6 - 8.3 10e3/uL 06/23/2024 7:05 PM BIZTALK DEVELOPER [facility] Absolute Lymphocytes 2.3 0.8 - 5.3 10e3/uL 06/23/2024 7:05 PM BIZTALK DEVELOPER [facility] Absolute Monocytes 0.2 0.0 - 1.3 10e3/uL 06/23/2024 7:05 PM BIZTALK DEVELOPER [facility] Absolute Eosinophils 0.0 0.0 - 0.7 10e3/uL 06/23/2024 7:05 PM BIZTALK DEVELOPER [facility] Absolute Basophils 0.2 0.0 - 0.2 10e3/uL 06/23/2024 7:05 PM BIZTALK DEVELOPER [facility] Absolute NRBCs 1.2(H) <=0.0 10e3/uL 025 7:05 PM BIZTALK DEVELOPER [facility] RBC Morphology Confirmed RBC Indices 06/23/2024 7:05 PM BIZTALK DEVELOPER [facility] Platelet Assessment Automated Count Confirmed. Platelet morphology is normal. Automated Count Confirmed. Platelet morphology is normal. 06/23/2024 7:05 PM BIZTALK DEVELOPER [facility] Polychromasia Slight(A) None Seen 06/23/2024 7:05 PM BIZTALK DEVELOPER [facility] Sickle Cells Slight(A) None Seen 06/23/2024 7:05 PM BIZTALK DEVELOPER [facility] Target Cells Slight(A) None Seen 06/23/2024 7:05 PM BIZTALK DEVELOPER [facility] Blood BLOOD SPECIMEN / Unknown Venipuncture / Unknown 06/23/2024 6:22 PM BIZTALK DEVELOPER 06/23/2024 6:34 PM BIZTALK DEVELOPER us Dayna Crane MD LAB - BLOOD ORDERABLES Final Re sult [facility] [address] [facility], [address] [place] [address] * (ABNORMAL) CBC with platelets and differential (06/23/2024 6:22 PM BIZTALK DEVELOPER) [facility] WBC Count 9.8 4.0 - 11.0 10e3/uL 06/23/2024 6:45 PM BIZTALK DEVELOPER [facility] RBC Count 2.49(L) 3.80 - 5.20 10e6/uL 06/23/2024 6:45 PM BIZTALK DEVELOPER [facility] Hemoglobin 8.0(L) 11.7 - 15.7 g/dL 06/23/2024 6:45 PM BIZTALK DEVELOPER [facility] Hematocrit 24.2(L) 35.0 - 47.0 % 06/23/2024 6:45 PM BIZTALK DEVELOPER [facility] MCV 97 78 - 100 fL 06/23/2024 6:45 PM BIZTALK DEVELOPER [facility] MCH 32.1 26.5 - 33.0 pg 06/23/2024 6:45 PM BIZTALK DEVELOPER [facility] MCHC 33.1 31.5 - 36.5 g/dL 06/23/2024 6:45 PM BIZTALK DEVELOPER [facility] RDW 18.8(H) 10.0 - 15.0 % 06/23/2024 6:45 PM BIZTALK DEVELOPER [facility] Platelet Count 482(H) 150 - 450 10e3/uL 06/23/2024 6:45 PM BIZTALK DEVELOPER [facility] Blood BLOOD SPECIMEN / Unknown Venipuncture / Unknown 06/23/2024 6:22 PM BIZTALK DEVELOPER 06/23/2024 6:34 PM BIZTALK DEVELOPER Dayna Crane MD LAB - BLOOD ORDERABLES Final Re sult Performing Organization Address City/[facility]/ZIP Co de Phone Number [facility] [address] [facility], [address] * HCG qualitative Blood (06/23/2024 6:22 PM BIZTALK DEVELOPER) Pathologist [facility] hCG Serum Qualitative Negative Negative JARET 06/23/2024 6:49 PM BIZTALK DEVELOPER [facility] Comment:This test is for scr eening purposes. Results should be interpreted along with the clinical picture. Confirmation testing is available if warranted by ordering [id number], HCG Quantitative . Blood BLOOD SPECIMEN / Unknown Venipuncture / Unknown 06/23/2024 6:22 PM BIZTALK DEVELOPER 06/23/2024 6:38 PM BIZTALK DEVELOPER Dayna Crane MD LAB - BLOOD ORDERABLES Final Re sult Performing Organization Address City/[facility]/ZIP Co de Phone Number [facility] [place] [address] [facility], [address] [id number] * (ABNORMAL) Comprehensive metabolic panel (06/23/2024 6:22 PM BIZTALK DEVELOPER) Pathologist [facility] Sodium 140 135 - 145 mmol/L 06/23/2024 7:13 PM BIZTALK DEVELOPER [facility] Potassium 4.3 3.4 - 5.3 mmol/L 06/23/2024 7:13 PM BIZTALK DEVELOPER [facility] Carbon Dioxide (CO2) 24 22 - 29 mmol/L 06/23/2024 7:13 PM BIZTALK DEVELOPER [facility] Anion Gap 7 7 - 15 mmol/L 06/23/2024 7:13 PM BIZTALK DEVELOPER [facility] Urea Nitrogen 6.8 6.0 - 20.0 mg/dL 06/23/2024 7:13 PM BIZTALK DEVELOPER [facility] Creatinine 0.61 0.51 - 0.95 mg/dL 06/23/2024 7:13 PM BIZTALK DEVELOPER [facility] GFR Estimate >90 >60 mL/min/1.7 3m2 06/23/2024 7:13 PM BIZTALK DEVELOPER [facility] Comment:eGFR calculated 2020 CKD-EPI equation. Calcium 8.8 8.8 - 10.4 mg/dL 06/23/2024 7:13 PM BIZTALK DEVELOPER [facility] Chloride 109(H) 98 - 107 mmol/L 06/23/2024 7:13 PM BIZTALK DEVELOPER [facility] Glucose 102(H) 70 - 99 mg/dL 06/23/2024 7:13 PM BIZTALK DEVELOPER [facility] Alkaline Phosphatase 125 40 - 150 U/L 06/23/2024 7:13 PM BIZTALK DEVELOPER [facility] AST 84(H) 0 - 45 U/L 06/23/2024 7:13 PM BIZTALK DEVELOPER [facility] ALT 69(H) 0 - 50 U/L 06/23/2024 7:13 PM BIZTALK DEVELOPER [facility] Protein Total 7.8 6.4 - 8.3 g/dL 06/23/2024 7:13 PM BIZTALK DEVELOPER [facility] Albumin 4.2 3.5 - 5.2 g/dL 06/23/2024 7:13 PM BIZTALK DEVELOPER [facility] Bilirubin Total 1.5(H) <=1.2 mg/dL 06/23/2024 7:13 PM BIZTALK DEVELOPER [facility] Blood BLOOD SPECIMEN / Unknown Venipuncture / Unknown 06/23/2024 6:22 PM BIZTALK DEVELOPER 06/23/2024 6:34 PM BIZTALK DEVELOPER us Dayna Crane MD LAB - BLOOD ORDERABLES Final Re sult [facility] [address] [facility], [address] [place] [address], [facility] documented in this encounter [...] For 1 dose $Given 06/23/2024 7:43 PM BIZTALK DEVELOPER 25 mg heparin lock flush 100 unit/mL injection 100 Units 100 Units, Intravenous, ONCE, On Wed06/23/24 at 2100, For 1 dose $Given 06/23/2024 9:25 PM BIZTALK DEVELOPER 100 Units hydromorphone (DILAUDID) injection 2 mg 2 mg, Intravenous, EVERY 1 HOUR PRN, severe pain, Starting on Wed06/23/24 at 1806, X 3 max $Given 06/23/2024 8:46 PM BIZTALK DEVELOPER 2 mg $Given 06/23/2024 7:43 PM BIZTALK DEVELOPER 2 mg $Given 06/23/2024 6:28 PM BIZTALK DEVELOPER 2 mg sodium chloride 0.9% BOLUS 1,000 mL Intravenous, 1,000 mL, ONCE, at 1,000 mL/hr, Administer over 1 Hours, On Wed06/23/24 at 1810, For 1 dose $New Bag 06/23/2024 6:28 PM BIZTALK DEVELOPER 1,000 mLs 1000 mL/hr documented in this encounter Active and Recently Administered Medications Times are shown in BIZTALK DEVELOPER. Scheduled Medication Order 06/21/2024 06/22/2024 06/23/2024 diphenhydrAMINE [...] RN) documented in this encounter Care Teams English Language Learner Tutor Relationship Specialty Start Date End Date Veronica Joseph MD [address] [place] [address] PCP - General Family Medicine 06/18/24 Mor Ramsey Medical Student 04/03/24 Case Samuel MD [address] [place] [address] [address], [address] [place], [place] [phone] Assigned Pediatric Specialist Provider 05/18/24 Juhi Benson, SOFIA Specialty Core Rescuer Hematology & Oncology 05/29/24 documented as of this encounter
--- OUTSIDE RECORDS SUMMARY | 2024-06-30 23:57 | XMS_ITS | Encounter Summary ---
Author Organization [facility] Address [address] [place] [id number] Care Team Providers Care Business Process Engineer Name Role Phone No Ref-Primary, Physician Primary Care Provider Mor Ramsey Unavailable Unavailable Case Samuel MD Unavailable [phone] Juhi Benson RN Unavailable Unavailable Reason for Visit * Reason Comments Sickle Cell Pain Crisis Encounter Details Date Type Department Care Team (Late st Contact Info) Description 06/11/2024 9:02 PM INDUSTRIAL TRUCK DRIVER - 06/12/2024 1:57 AM [facility] Emergency [facility] Emergency Room [address] [place] [address] Iliana Weber MD [facility] [address] [place] [address] Sickle cell pain crisis (H) Discharge Disposition: [...] on file Legal Sex Female 8:25 AM INDUSTRIAL TRUCK DRIVER Gender Identity Not on file Sexual Orientation Not on file documented as of this encounter Last Filed Vital Signs Vital Sign Reading Time Taken Comments Blood Pressure 118/75 06/12/2024 12:45 AM INDUSTRIAL TRUCK DRIVER Pulse 91 06/12/2024 12:45 AM INDUSTRIAL TRUCK DRIVER Temperature 36.5 C (97.7 F) 06/11/2024 8:58 PM INDUSTRIAL TRUCK DRIVER Respiratory Rate 19 06/12/2024 12:45 AM INDUSTRIAL TRUCK DRIVER Oxygen Saturation 95% 06/12/2024 12:45 AM INDUSTRIAL TRUCK DRIVER Inhaled Oxygen Concentration - - Weight 52.2 kg (115 lb) 06/11/2024 8:58 PM INDUSTRIAL TRUCK DRIVER Height 154.9 cm (5' 1) 06/11/2024 8:58 PM INDUSTRIAL TRUCK DRIVER Body Mass Index 21.73 06/11/2024 8:58 PM INDUSTRIAL TRUCK DRIVER documented in this encounter Discharge [...] 05/01/2024 naloxone (NARCAN) 4 MG/0.1ML nasal spray [place] 1 spray (4 mg) into one nostril [...] CST Gave handoff report to Niki BLACK STRIAL TRUCK DRIVER * Shane Santos RN - 06/11/2024 10:00 PM CST Pt drove here as seen on security footage. Notified Dr Weber, and ok to proceed with treatment plan as ordered. Pt was advised to arrange a ride home. STRIAL TRUCK DRIVER * Iliana Weber MD - 06/11/2024 9:08 [...] get infusion therapies frequently. Last seen at [facility] 06/11/2024 early this morning about midnight. [...] with other provider:Did you involve another provider (independent crop consultant, MH, pharmacy, etc.)?: No Discharge. 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 Recently moved to [place] from [place], [place]. She is 1 of 9 [...] Connections: Socially Integrated (03/28/2024) Received from [facility] Social Connections Do [...] dry. Normal skin color. Neuro: Speech clear. sales operations manager grossly intact. Moves all extremities appropriately. Strength [...] Given normal axis. QTcis 453, QRS 78, RI 158. As compared to previous EKG from June 05, 2024 T wave slightly flattened in 3 and aVF but otherwise no significant change. I have independently reviewed and interpreted the EKG(s) documented above. Iliana Weber M.D. Emergency Medicine [facility] EMERGENCY ROOM [address] [facility] [id number] Dept: [phone] Iliana Weber MD 06/12/24 0149 STRIAL TRUCK DRIVER * Jennifer Muse RN - 06/11/2024 8:56 [...] WDL WDL Cognitive/Neuro/Behavioral WDL Cognitive/Neuro/Behavioral WDL WDL STRIAL TRUCK DRIVER documented in this encounter Plan of Treatment Upcoming Encounters Date Type Department Care Team (Late st Contact Info) Description 07/10/2024 11:30 AM CDT Oncology Visit [facility] [address] [place] [address] Case Samuel MD [address] [place] [address], [address] [place] [address] documented as of this encounter Goals Goal Patient Goal Type Associated Problems Recent Progress Patient-Stated? Author Pain Management General On track( 025 12:40 PM INDUSTRIAL TRUCK DRIVER) Yes Juhi Benson, RN Note: [...] ECG 12-LEAD WITH MUSE JEREMIAS HORVATH,LUCIANO STAT 06/11/2024 9:04 PM INDUSTRIAL TRUCK DRIVER documented in this encounter Results * ECG 12-LEAD WITH MUSE (LHE) (06/11/2024 9:04 PM INDUSTRIAL TRUCK DRIVER) Systolic Blood Pressure mmHg RADIOLOGY RESULTS Diastolic Blood Pressure mmHg RADIOLOGY RESULTS Ventricular Rate 102 BPM RAD IOLOGY RESULTS Atrial Rate 102 BPM RADIOLOG Y RESULTS RI Interval 158 ms RADIOLOG Y RESULTS QRS Duration 78 ms RADIOLO GY RESULTS QT 348 ms RADIOLOGY RESULTS QTc 453 ms RADIOLOGY RESULTS P [place] 39 degrees RADIOLOGY RESULTS R AXIS 66 degrees RADIOLOGY RESULTS T [place] 33 degrees RADIOLOGY RESULTS Interpretation ECG Sinus tachycardia Nonspecific T wave abnormality Abnormal ECG When compared with ECG of 05-Jun-2024 11:40, No significant change was found Confirmed by SEE ED PROVIDER NOTE FOR, ECG INTERPRETATION ([id number]), state editor SELMA GARRISON ([id number]) on 06/11/2024 9:05:27 PM RADIOLOGY RESULTS 06/11/2024 9:04 PM INDUSTRIAL TRUCK DRIVER 06/11/2024 9:05 PM INDUSTRIAL TRUCK DRIVER us Deshawn Arredondo MD ECG ORDERABLES Edited [...] For 1 dose $Given 06/12/2024 1:32 AM INDUSTRIAL TRUCK DRIVER 25 mg heparin lock flush [...] each port lumen $Given 06/12/2024 1:47 AM INDUSTRIAL TRUCK DRIVER 5 mLs HYDROmorphone (DILAUDID) injection 2 mg 2 mg, Intravenous, EVERY 1 HOUR PRN, moderate pain, Starting on Wed06/11/24 at 2103, For 3 doses $Given 06/12/2024 12:23 AM INDUSTRIAL TRUCK DRIVER 2 mg $Given 06/11/2024 11:16 PM INDUSTRIAL TRUCK DRIVER 2 mg $Given 06/11/2024 10:09 PM INDUSTRIAL TRUCK DRIVER 2 mg lactated ringers BOLUS 1,000 mL Intravenous, 1,000 mL, ONCE, at 500 mL/hr, Administer over 2 Hours, On 06/11/24 at 2130, For 1 dose $New Bag 06/11/2024 10:03 PM INDUSTRIAL TRUCK DRIVER 1,000 mLs 500 mL/hr ondansetron (ZOFRAN) injection 8 mg 8 mg, Intravenous, ONCE, Administer over 2-5 Minutes, On 06/11/24 at 2130, For 1 dose $Given 06/11/2024 10:08 PM INDUSTRIAL TRUCK DRIVER 8 mg sodium chloride (PF) 0.9% [...] Recently Administered Medications Times are shown in INDUSTRIAL TRUCK DRIVER. Scheduled Medication Order 06/10/2024 06/11/2024 06/12/2024 diphenhydrAMINE (BENADRYL) injection 25 mg (COMPLETED) 25 mg, Intravenous, ONCE, On Wed06/12/24 at 0130, For 1 dose 0132 ($Given - Provi nas: Guille Payan, RN) heparin lock flush 100 unit/mL injection 5-10 mL (COMPLETED) 5-10 mL, Intracatheter, ONCE, On Wed06/11/24 at 2230, For 1 dose, To de-access [...] 500 mL/hr, Administer over 2 Hours, On Wed06/11/24 at 2130, For 1 dose 2202 ($New Bag - Provider: Shane Santos RN) 0009 (Stopped - Provider: Guille Payan, RN) ondansetron (ZOFRAN) injection 8 mg (COMPLETED) 8 mg, Intravenous, ONCE, Administer over 2-5 Minutes, On Wed06/11/24 at 2130, For 1 dose 2207 ($Given - Provider: Shane Santos RN) PRN Medication Order 06/10/2024 06/11/2024 06/12/2024 HYDROmorphone (DILAUDID) injection 2 mg (COMPLETED) 2 mg, Intravenous, EVERY 1 HOUR PRN, moderate pain, Starting on Wed06/11/24 at 2103, For 3 doses 220 ($Given - Provider: Shane Santos RN)2316 ($Given - Provider: Guille Payan, RN) 0023 ($Given - Provider: Guille Payan, RN) [...] documented in this encounter Care Teams Business Process Engineer Relationship Specialty Start Date End Date No Ref-Primary, Physician PCP - General 03/15/24 06/17/24 Mor Ramsey Medical Student 04/03/24 Case Samuel MD [address] [place] [address], [address] [place] [address] Assigned Pediatric Specialist Provider 05/18/24 Juhi Benson, RN Specialty Scientific Informatics Project Leader Hematology & Oncology 05/29/24 documented as of this encounter
--- OUTSIDE RECORDS SUMMARY | 2024-06-30 23:57 | XMS_ITS | Encounter Summary ---
Author Organization [facility] Address [address] [place] [address]. [place] [address] Care Team Providers Care Can Tender Name Role Phone No Ref-Primary, Physician Primary Care Provider Mor Ramsey Unavailable Unavailable Case Samuel MD Unavailable [phone] Juhi Benson RN Unavailable Unavailable eVronica Joseph MD Primary Care Provider [phone] Reason for Visit * Reason Comments Shortness of Breath Chest Pain Fever * Auth/Cert Specialty Diagnoses / Procedures Referred By Contac t Referred To Contact EMERGENCY MEDICINE Diagnoses Sickle cell pain crisis (H) [facility] Emergency Department [address] [place] [address] Phone: tel: Referral ID Status Reason Start Date Expiration Date Visits Re quested Visits Authorized [id number] 1 1 Encounter Details Date Type Department Care Team (Late st Contact Info) Description 06/16/2024 4:46 PM BALANCE WHEEL SCREW HOLE DRILLER - 06/20/2024 11:00 AM BALANCE WHEEL SCREW HOLE DRILLER Hospital Encounter [facility] 7C Med Surg [address] [place] [phone] Abimael Schofield MD [address] [place] [phone] Esdras Markham MD [address] [place] [address] German Hall MD [address] [place] [address] [address] [place] [address] Sickle cell pain crisis (H) [...] on file Legal Sex Female 8:25 AM BALANCE WHEEL SCREW HOLE DRILLER Gender Identity Not on file Sexual Orientation Not on file documented as of this encounter Last Filed Vital Signs Vital Sign Reading Time Taken Comments Blood Pressure 106/62 06/20/2024 6:00 AM BALANCE WHEEL SCREW HOLE DRILLER Pulse 78 06/19/2024 2:25 PM BALANCE WHEEL SCREW HOLE DRILLER Temperature 36.7 C (98 F) 06/20/2024 6:00 AM BALANCE WHEEL SCREW HOLE DRILLER Respiratory Rate 18 06/20/2024 6:00 AM BALANCE WHEEL SCREW HOLE DRILLER Oxygen Saturation 99% 06/20/2024 6:00 AM BALANCE WHEEL SCREW HOLE DRILLER Inhaled Oxygen Concentration - - Weight - - Height - - Body Mass Index - - documented in this encounter Discharge Summaries * Rl Elias MD - 06/20/2024 8:39 AM CST [facility] Discharge Summary - Medicine & Pediatrics [...] her pain can be managed with her [employer] [facility]EMAN dilaudid 4mg q6h PRN. Hematology team is aware of discharge today and will arrange follow up. - continue [place] [facility]AN dilaudid 4 mg Q6H PRN & further supportive cares as needed - follow up with Hematology as scheduled by their team - Continue [employer] [facility]AN hydroxyurea 1000mg BID - Continue [place] [facility]AN folic acid 1mg daily - Continue topical diclofenac, lidocaine, icy hot PRN #ANGIE, resolved Likely prerenal with decreased PO intake. Cr 0.92 on admission, baseline ~0.61- 0.7. Improved with maintenance fluids. Encouraged adequate water intake at home. #Insomnia - melatonin 3 mg PRN #Anxiety - Continue [employer] R[employer]EMAN fluoxetine Consultations This Hospital Stay HEMATOLOGY ADULT IP CONSULT CARE MANAGEMENT / SOCIAL WORK IP CONSULT Code Status Full Code Nivia Carvajal, MS3 Ricardo 1 Hospitalist Service [facility] 7C MED SURG [address] [id number] Physical Exam Vital Signs: Temp: 98 ??F [...] discharge: activity as tolerated Follow Up ([facility]) Follow up with primary care provider, Veronica Joseph, within 7 days for hospital follow- up. Thefollowing labs/tests are recommended: CBC. Appointments on [place] and/or [facility] (with [facility] or [facility] provider or service). Call [phone] if you haven't heard regarding these appointments [...] inadequate. naloxone (NARCAN) 4 MG/0.1ML nasal spray Hunter 1 spray (4 mg) into one nostril [...] Aydee Coughlin MD at 06/20/2024 11:52 AM BALANCE WHEEL SCREW HOLE DRILLER NCE WHEEL SCREW HOLE DRILLER NCE WHEEL SCREW HOLE DRILLER Associated attestation - Aydee Coughlin MD - 06/20/2024 11:52 AM BALANCE WHEEL SCREW HOLE DRILLER Physician Attestation I saw and evaluated this [...] 05/01/2024 naloxone (NARCAN) 4 MG/0.1ML nasal spray Hunter 1 spray (4 mg) into one nostril [...] stated on the papers. Home supply :N/A. NCE WHEEL SCREW HOLE DRILLER * Araceli Ramires MD - 06/20/2024 8:42 [...] Overall, I spent 35 minutes today (DOS) [id number] and/or coordinating care as documented above and specifically listed as below: --Reviewing documentation related to patient's history and this current admission available in [email or web address] --Review and clinical interpretation of pertinent laboratory test results from this admission --Discussion with the patient --Discussion with patient's primary team --Documentation in the electronic health record NCE WHEEL SCREW HOLE DRILLER * Linda Lomax MD - 06/19/2024 7:43 [...] Service (when I saw the patient): 06/19/24 [facility] Progress Note - Medicine Service, MAROON [...] senna PRN for supportive measures - Continue [employer] [facility] hydroxyurea 1000mg BID - Continue [place] [facility] folic acid 1mg daily - Monitoring CBC [...] melatonin 3 mg PRN #Anxiety - Continue [place] [facility] fluoxetine - Benadryl PRN per Pain Plan [...] Nivia Carvajal, MS3 Medical Student Medicine Service, [facility] TEAM [address] [place] [address] Securely message with [employer] (more info) Text page via [facility] Paging/Directory See signed in provider for [...] previous visit (from the past 24 hours). NCE WHEEL SCREW HOLE DRILLER * Tejal Curry RN - 06/18/2024 6:54 PM CST Shift: 0429-1735 VS: Temp: 98.3 ??F (36.8 ??C) Temp [...] Skin: No new deficits Activity: up at chandlre, independent in room, uses call light appropriately Plan: Continue POC; manage pain NCE WHEEL SCREW HOLE DRILLER * Linda Lomax MD - 06/18/2024 10:18 AM CST [facility] Progress Note - Medicine Service, RICARDO TEAM [...] benadryl, senna PRN for supportive measures -Continue [place] [facility] hydroxyurea 1000mg BID -Continue [place] [facility] folic acid 1mg daily - monitoring CBC w/diff, LDH, reticulocyte count, and LDH daily - type & screened, consented - continue topical diclofenac, lidocaine, icy hot PRN - blood cultures, urine culture >> NGTD #ANGIE, resolved Likely prerenal with decreased PO intake. - mIVF with LR - CMP in AM #Insomnia - Continue [employer] [facility] fluoxetine - melatonin 3 mg PRN Diet: [...] Hall . Linda Lomax MD Medicine Service, [address] Securely message with [employer] (more info) Text page via [facility] Paging/Directory See signed in provider for [...] German Hall MD at 06/18/2024 3:16 PM BALANCE WHEEL SCREW HOLE DRILLER NCE WHEEL SCREW HOLE DRILLER NCE WHEEL SCREW HOLE DRILLER Associated attestation - German Hall MD - 06/18/2024 3:16 PM BALANCE WHEEL SCREW HOLE DRILLER Attestation: This patient has been seen and [...] Overall, I spent 35 minutes today (DOS) [id number] and/or coordinating care as documented above and specifically listed as below: --Reviewing documentation related to patient's history and this current admission available in [email or web address] --Review and clinical interpretation of pertinent laboratory test results from this admission --Discussion with the patient --Discussion with patient's primary team --Documentation in the electronic health record NCE WHEEL SCREW HOLE DRILLER * Rl Elias MD - 06/17/2024 11:31 AM CST [facility] Progress Note - [facility] Date of Admission: [...] benadryl, senna PRN for supportive measures -Continue [place] [facility] hydroxyurea 1000mg BID -Continue [place] [facility] folic acid 1mg daily - monitoring CBC w/diff, LDH, reticulocyte count, and LDH daily - type & screened, consented - continue topical diclofenac, lidocaine, icy hot PRN - blood cultures, urine culture to evaluate any further source of infection #ANGIE Likely prerenal with decreased PO intake. - mIVF with LR - CMP in AM #Insomnia - Continue [employer] fluoxetine - melatonin 3 mg PRN Diet: [...] Hall . RL ELIAS MD Medicine Service, [address] Securely message with [employer] ([employer] info) Text page via [facility] Paging/Directory See signed in provider for [...] EXAM: XR CHEST 2 VIEWS LOCATION: [facility] DATE: 06/16/2024 INDICATION: chest pain COMPARISON: 06/12/2024 Impression IMPRESSION: Left chest port catheter in stable position. Stable position of right central venous catheter. No airspace opacity, pleural effusion or pneumothorax. Cosigned by German Hall MD at 06/18/2024 3:07 PM BALANCE WHEEL SCREW HOLE DRILLER NCE WHEEL SCREW HOLE DRILLER NCE WHEEL SCREW HOLE DRILLER NCE WHEEL SCREW HOLE DRILLER Associated attestation - German Hall MD - 06/18/2024 3:07 PM BALANCE WHEEL SCREW HOLE DRILLER Attestation: This patient has been seen and evaluated by me, German Hall MD. Discussed with the house staff team or resident(s) and agree with the findings and plan in this note. I have reviewed today's Medications, Vital Signs, and Labs. DOS 06/17 documented in this encounter H&P Notes * Laquita Kelley MD - 06/16/2024 7:59 PM CST [facility] History and Physical - Medicine Service, [...] IV -mIVF with NS at 100ml/hr -Continue [employer] [facility] hydroxyurea 1000mg BID -Continue [employer] [facility] folic acid 1mg -PRN zofran for nausea -PRN benadryl for itching #ANGIE Likely prerenal with decreased PO intake. -mIVF with NS -Monitor #Insomnia -Continue [employer] R[employer]EMAN fluoxetine Diet: Regular DVT Prophylaxis: Enoxaparin (Lovenox) SQ Santiago Catheter: Not present Fluids: NS at 100ml/hr Lines: PRESENT Cardiac Monitoring: None Code Status: Full Clinically Significant Risk Factors Present on Admission # Anemia: based on hgb <11 # Financial/Environmental Concerns: Disposition Plan Expected Discharge Date: 06/18/2024 The patient's care was discussed with the Attending Physician, Dr. Markham . 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, had port-a-cath in [facility] Functional asplenia Gallstones Hb-SS disease without [...] 4 MG/0.1ML nasal spray No No Sig: Hunter 1 spray (4 mg) into one nostril [...] Esdras Markham MD at 06/17/2024 11:00 AM BALANCE WHEEL SCREW HOLE DRILLER NCE WHEEL SCREW HOLE DRILLER NCE WHEEL SCREW HOLE DRILLER Associated attestation - Esdras Markham MD - 06/17/2024 11:00 AM BALANCE WHEEL SCREW HOLE DRILLER Physician Attestation I saw this patient with [...] this encounter Consult Notes * Adelaide Acevedo, INSURANCE PROCESSING CLERK - 06/18/2024 10:26 AM CSTAssociated Order(s): [...] Communication Assessment Patient's communication style: spoken language (Ecuadorean or Bilingual) Cognitive Cognitive/Neuro/Behavioral: WDL Living Environment: [...] Depression: Not at risk (04/11/2024) [facility] PHQ-2 TOTAL SCORE: 1 Housing [...] Social Connections: Socially Integrated (03/28/2024) Received from [facility] Social Connections Do you [...] Care management signing off. LAURA Palacios 06/18/2024 Regional Education Coordinator Social Work and Care Management Department SEARCHABLE in [facility] - search SOCIAL WORK [place] [phone]) Wednesday and Wednesday Units: 4A Vocera, 4C Vocera, & 4E Vocera Units: 5A 2092-0203 Vocera, 5A 2461-3354 Vocera , BMT SW 1 BMT SW 2, BMT SW 3 & BMT SW 4 5C OffService 5401 - 5416 5C Off Service [phone] Units: 6A Vocera & 6B Vocera Units: 6C Vocera Units: 7A Vocera & 7B Vocera Units: 7C Med Surg 7401 thru 7418 and 7C Med Surg 7502 thru 7521 Unit: [place] ED Vocera & [place] Obs Vocera [facility] ([phone]) Wednesday and Wednesday Units: 5 Ortho Vocera, 5 Med Surg Vocera & WB ED Vocera Units: 6 Med Surg Vocera, 8 Med Surg Vocera, & 10 ICU Vocera After hours Vocera [facility] and After Hours Vocera [place] Please NOTE changes to times below: Wednesday & Wednesday (1629 - 2029) Wed-Wed (0392-4907) [facility] Recognized Holidays ([phone]) Units: ALL - see above VOCERA links to units NCE WHEEL SCREW HOLE DRILLER * Drake Nina MD - 06/17/2024 8:55 AM CSTAssociated Order(s): HEMATOLOGY ADULT IP CONSULT Images from the original note were not included. Hematology Consult Note Date of Service: 06/17/2024 Patient: Gianna Hernández Admission Date: 06/16/2024 Hospital Day # 1 Hematology Diagnosis: Sickle Cell Disease Primary Outpatient Head Charger: Dr. Samuel Reason for Consult: Vasoocclusive pain [...] the care coordination note. Please continue her [employer] ROUTEMAN hydrea and folic acid. Recommendations: - Please follow pain plan as outlined in the care coordination note in the summary section. - Ordered 1 unit PRBC along with blood consent which is placed in the chart. - Please continue [employer] ROUTEMAN hydrea 1000 mg BID, Folate 1mg daily. [...] Drake Nina MD Hematology/Oncology/BMT Fellow PGY4 Pager: [phone] History of Present Illness: Gianna Hernández is [...] Currently Drug use: Never Social History Narrative Boyd-rj-xodj mom. Recently moved to [place] from [place], [place]. She is 1 of 9 [...] (03/28/2024) [facility] Social [facility]ctions Do you often feel [...] 3 mL Intracatheter q1 min prn Abimael Schofeild MD sodium chloride (PF) 0.9% PF flush [...] inadequate. naloxone (NARCAN) 4 MG/0.1ML nasal spray Hunter 1 spray (4 mg) into one nostril [...] Araceli Ramires MD at 06/17/2024 11:14 AM BALANCE WHEEL SCREW HOLE DRILLER NCE WHEEL SCREW HOLE DRILLER NCE WHEEL SCREW HOLE DRILLER Associated attestation - Araceli Ramires MD - 06/17/2024 11:14 AM BALANCE WHEEL SCREW HOLE DRILLER Hematology Consult Attending Attestation I reviewed the [...] Overall, I spent 60 minutes today (DOS) [id number] and/or coordinating care as documented above and specifically listed as below: --Reviewing documentation related to patient's history and this current admission available in [facility] --Review and clinical interpretation of [...] time: Means of arrival: Comments: G 41 NCE WHEEL SCREW HOLE DRILLER * Abimael Schofield MD - 06/16/2024 5:18 PM CST ED Provider Note [facility] History Chief Complaint Patient presents with [...] sinus tachycardia rate of 122 with a MO interval of 0.128 and a QRS duration of 0.074. The patient had a normal axis with no acute ST or T wave changes significant for ischemia. This is read by me personally. Procedures Results for orders placed or performed during the hospital encounter of 06/16/24 Chest XR, PA & LAT Status: None Narrative EXAM: XR CHEST 2 VIEWS LOCATION: [facility] DATE: 06/16/2024 INDICATION: chest pain COMPARISON: [...] Range ABO/RH(D) A POS SPECIMEN EXPIRATION DATE [id number] CBC with platelets differential Status: Abnormal (In process) Narrative The following orders were created for panel order CBC with platelets differential. Procedure Abnormality Status --------- ------ CBC with platelets and d...[[id number]] Abnormal Preliminary result RBC and Platelet Morphology[[id number]] In process Please view results for these tests on the individual orders. ABO/Rh type and screen Status: None (In process) Narrative The following orders were created for panel order ABO/Rh type and screen. Procedure Abnormality Status --------- ------ Adult Type and Screen[[id number]] Preliminary result Please view results for these tests on the individual orders. Medications sodium chloride (PF) 0.9% PF flush 3 mL (has no administration in time range) sodium chloride (PF) 0.9% PF flush 3 mL (has no administration in time range) sodium chloride 0.9% BOLUS 500 mL (500 mLs Intravenous $New Bag 06/16/24 3208) sodium chloride 0.9 % infusion (has no administration in time range) hydromorphone (DILAUDID) injection 2 mg (2 mg Intravenous $Given 06/16/24 5276) Critical care was not performed. Medical Decision [...] chest syndrome Admit Med Abimael Schofield MD [facility] EMERGENCY DEPARTMENT 06/16/2024 Abimael Schofield MD 06/16/24 1846 NCE WHEEL SCREW HOLE DRILLER * Yelitza Manriquez RN - 06/16/2024 4:37 [...] WDL WDL Cognitive/Neuro/Behavioral WDL Cognitive/Neuro/Behavioral WDL WDL NCE WHEEL SCREW HOLE DRILLER documented in this encounter Miscellaneous Notes * [...] verbalized hope to discharge to home today NCE WHEEL SCREW HOLE DRILLER * Summary of Care - Rene Morocho RN - 06/20/2024 12:38 AM CST (Change note type to summary of care) Reason for admission: Sickle cell crisis Ad[facility] from: [facility] Report received from: Sarai Aburto 2 RN [...] (January-July only): No, pt declined Detailed Belongings: [place] sweater, brown jacket, sweatpants, glasses, wallet, phone, 2 chargers, air pods NCE WHEEL SCREW HOLE DRILLER * Plan of Care - Sarai Shrestha RN - 06/20/2024 12:11 AM CST Goal Outcome Evaluation: BP 103/79,HR 87bpm, resp 18,O2 99 RA Shift:5591-0617 Alert and oriented x4. Independent with ADLs. VSS. Pain managed with Q 2 hrs IV Dilaudid. C/O nausea PRN Zofran administered;effective. R chest port infusing LR @ 75 ml/hr. Report given to Rene BLACK in 7C. NCE WHEEL SCREW HOLE DRILLER * Plan of Care - Amelia Gannon RN - 06/19/2024 6:26 AM CST Images from the original note were not included. Shift: 7271-6227 VS: BP 118/85 (BP Location: Left arm) Pulse 99 Temp 98.2 ??F (36.8 ??C) (Oral) Resp 18 UsD240% Pain: Sickle cell pain. Tx with scheduled dilaudid q2hr Neuro: WDL, A&Ox4 Cardiac: WDL Respiratory: WDL, on RA, on pulse ox GI/: WDL, Voiding spontaneously Diet/Appetite: Regular diet LDA's: R. Chest port infusing LR @ 75 Skin: WDL Activity: Independent Tests/Procedures: Pertinent Labs/Lab Collection: Plan: Goal Outcome Evaluation: NCE WHEEL SCREW HOLE DRILLER * Plan of Care - Adelaide Acevedo MSW - 06/18/2024 11:05 AM CST Goal Outcome Evaluation: Plan of Care Reviewed With: patient Overall Patient Progress: improvingOverall Patient Progress: improving Pt anticipates discharge home w/ family once med ready NCE WHEEL SCREW HOLE DRILLER * Plan of Care - Amelia Gannon RN - 06/18/2024 6:51 AM CST Shift: 9108-1562 VS: BP 115/66 (BP Location: Right arm, [...] Platelet, Creatinine, Reticulocyte Plan: Goal Outcome Evaluation: NCE WHEEL SCREW HOLE DRILLER * Plan of Care - Lowell Pepper RN - 06/17/2024 9:37 PM CSTSummary: 9052-1486 BP 110/64 (BP Location: Right arm, Patient [...] Goal: Optimal Comfort and Wellbeing Outcome: Progressing NCE WHEEL SCREW HOLE DRILLER * Provider Notification - Lowell Pepper RN - 06/17/2024 10:00 AM CST 06/17/24 0857 Critical Test Results/Notification Critical Lab Result (Lab Name and Value) Hgb 6.3 What Time Did The Lab Notify You? (follow up page. to day time provider.) Provider Notified yes Date of Provider Notification 06/17/24 Time of Provider Notification 0848 Mechanism of Provider notification telephone (via [facility]) What Provider Did You Notify? Neptali Elias MD Response aware (per primary teams. Awaiting recommendations from hematology team.) NCE WHEEL SCREW HOLE DRILLER * Plan of Care - Zaynab Veliz RN - 06/17/2024 6:55 AM CST Goal Outcome Evaluation: Plan of Care Reviewed With: patient Overall Patient Progress: improving Outcome Evaluation: Pt presented to ED with acute onset left sided chest pain & sickle cell pain crisis Shift: 7538-2045 VS: Stable on RA, afebrile Neuro: A&Ox4 Labs: hemoglobin 6.3, provider notified Pain/Nausea: pain rated 8-9/10 PRN: benadryl X2, zofran x 1 Diet: Regular IV Access: none Infusion(s): NACL 100ml/hr Lines/Drains: L-chest wall GI/: voids without difficulty Skin: intact Mobility: up ad chandler Plan: Continue POC NCE WHEEL SCREW HOLE DRILLER * Provider Notification - Zaynab Veliz RN - 06/17/2024 6:47 AM BALANCE WHEEL SCREW HOLE DRILLER Jovan encinas lab called, critical value, pt hemoglobin 6.3. NCE WHEEL SCREW HOLE DRILLER * Medication Scribe - Admission Medication History - Yennifer Edwards - 06/17/2024 4:14 AM CST Medication Scribe Admission Medication History Admission medication history is complete. The information provided in this note is only as accurateas the sources available at the time of the update. Information Source(s): Patient via in-person Pertinent Information: per pt+CE, pt reported taking medications on [facility] R[facility]EMAN medication list as directed. No DRH. Changes made to [employer]AN medication list: Added: None Deleted: None Changed: None Allergies reviewed with patient and updates made in EHR: yes Medication History Completed By: Yennifer Edwards 06/17/2024 4:14 AM [facility]AN Med List Medication Sig Last Dose/Taking cefpodoxime [...] 1 tablet by mouth daily. 06/16/2024 Morning NCE WHEEL SCREW HOLE DRILLER NCE WHEEL SCREW HOLE DRILLER documented in this encounter Plan of Treatment Upcoming Encounters Date Type Department Care Team (Late st Contact Info) Description 07/10/2024 11:30 AM CDT Oncology Visit [facility] [address] [place] [address] Case Samuel MD [address] [place] [address] 484, [address] [place], [place] [id number] documented as of this encounter Goals Goal Patient Goal Type Associated Problems Recent Progress Patient-Stated? Author Pain Management General On track( 025 12:40 PM BALANCE WHEEL SCREW HOLE DRILLER) Yes Juhi Benson, SOFIA Note: Goal Statement: [...] PLATELETS AND DIFFERENTIAL STAT 06/20/2024 5:48 AM BALANCE WHEEL SCREW HOLE DRILLER LACTATE DEHYDROGENASE Routine 06/20/2024 5:48 AM BALANCE WHEEL SCREW HOLE DRILLER CBC WITH PLATELETS & DIFFERENTIAL STAT 06/20/2024 5:48 AM BALANCE WHEEL SCREW HOLE DRILLER RETICULOCYTE COUNT Routine 06/20/2024 5: 48 AM BALANCE WHEEL SCREW HOLE DRILLER COMPREHENSIVE METABOLIC PANEL Routine 06/20/2024 5:48 AM BALANCE WHEEL SCREW HOLE DRILLER RBC AND PLATELET MORPHOLOGY STAT 06/19/2024 9:30 AM BALANCE WHEEL SCREW HOLE DRILLER CBC WITH PLATELETS AND DIFFERENTIAL STAT 06/19/2024 9:30 AM BALANCE WHEEL SCREW HOLE DRILLER LACTATE DEHYDROGENASE STAT 06/19/2024 9:30 AM BALANCE WHEEL SCREW HOLE DRILLER CBC WITH PLATELETS & DIFFERENTIAL STAT 06/19/2024 9:30 AM BALANCE WHEEL SCREW HOLE DRILLER RETICULOCYTE COUNT STAT 06/19/2024 9: 30 AM BALANCE WHEEL SCREW HOLE DRILLER COMPREHENSIVE METABOLIC PANEL STAT 06/19/2024 9:30 AM BALANCE WHEEL SCREW HOLE DRILLER PLATELET COUNT STAT 06/19/2024 12:17 AM BALANCE WHEEL SCREW HOLE DRILLER CREATININE STAT 06/19/2024 12:17 AM BALANCE WHEEL SCREW HOLE DRILLER CBC WITH PLATELETS AND DIFFERENTIAL STAT 06/18/2024 8:24 AM BALANCE WHEEL SCREW HOLE DRILLER LACTATE DEHYDROGENASE STAT 06/18/2024 8:24 AM BALANCE WHEEL SCREW HOLE DRILLER CBC WITH PLATELETS & DIFFERENTIAL STAT 06/18/2024 8:24 AM BALANCE WHEEL SCREW HOLE DRILLER RETICULOCYTE COUNT STAT 06/18/2024 8: 24 AM BALANCE WHEEL SCREW HOLE DRILLER DIFFERENTIAL STAT 06/18/2024 8:24 AM BALANCE WHEEL SCREW HOLE DRILLER COMPREHENSIVE METABOLIC PANEL STAT 06/18/2024 8:24 AM BALANCE WHEEL SCREW HOLE DRILLER ROUTINE UA WITH MICROSCOPIC REFLEX TO CULTURE STAT 06/17/2024 1:11 PM BALANCE WHEEL SCREW HOLE DRILLER TRANSFUSE RED BLOOD CELLS (UNIT) STAT 06/17/2024 10:26 AM BALANCE WHEEL SCREW HOLE DRILLER PREPARE RED BLOOD CELLS (UNIT) STAT 06/17/2024 9:12 AM BALANCE WHEEL SCREW HOLE DRILLER TRANSFERRIN Add-On 06/17/2024 6:16 AM BALANCE WHEEL SCREW HOLE DRILLER IRON AND IRON BINDING CAPACITY Add-On 06/17/2024 6:16 AM BALANCE WHEEL SCREW HOLE DRILLER BASIC METABOLIC PANEL STAT 06/17/2024 6:16 AM BALANCE WHEEL SCREW HOLE DRILLER CBC WITH PLATELETS STAT 06/17/2024 6: 16 AM BALANCE WHEEL SCREW HOLE DRILLER TROPONIN T, HIGH SENSITIVITY STAT 06/16/2024 9:33 PM BALANCE WHEEL SCREW HOLE DRILLER XR CHEST 2 VIEWS STAT 06/16/2024 6:09 PM BALANCE WHEEL SCREW HOLE DRILLER RBC AND PLATELET MORPHOLOGY STAT 06/16/2024 5:37 PM BALANCE WHEEL SCREW HOLE DRILLER CBC WITH PLATELETS AND DIFFERENTIAL STAT 06/16/2024 5:37 PM BALANCE WHEEL SCREW HOLE DRILLER TYPE AND SCREEN, ADULT STAT 5:37 PM BALANCE WHEEL SCREW HOLE DRILLER TROPONIN T, HIGH SENSITIVITY STAT 06/16/2024 5:37 PM [employer] CBC WITH PLATELETS & DIFFERENTIAL STAT 06/16/2024 5:37 PM [employer] PROLACTIN STAT 06/16/2024 5:37 PM [employer] COMPREHENSIVE METABOLIC PANEL STAT 06/16/2024 5:37 PM [employer] BLOOD CULTURE STAT 06/16/2024 5:37 PM [employer] ABO/RH TYPE AND SCREEN STAT 5:37 PM [employer] EKG 12-LEAD, TRACING ONLY STAT 06/16/2024 4:55 PM [employer] documented in this encounter Results * (ABNORMAL) CBC with platelets and differential (06/20/2024 5:48 AM [employer]ANCE [employer]) [facility] WBC Count 9.3 4.0 - 11.0 10e3/uL 06/20/2024 6:05 AM [employer] [facility] RBC Count 2.54(L) 3.80 - 5.20 10e6/uL 06/20/2024 6:05 AM [employer] [facility] Hemoglobin 8.0(L) 11.7 - 15.7 g/dL 06/20/2024 6:05 AM [employer] [facility] Hematocrit 23.2(L) 35.0 - 47.0 % 06/20/2024 6:05 AM [employer] [facility] MCV 91 78 - 100 fL 06/20/2024 6:05 AM [employer] [facility] MCH 31.5 26.5 - 33.0 pg 06/20/2024 6:05 AM [employer] [facility] MCHC 34.5 31.5 - 36.5 g/dL 06/20/2024 6:05 AM [employer] [facility] RDW 18.4(H) 10.0 - 15.0 % 06/20/2024 6:05 AM [employer] [facility] Platelet Count 435 150 - 450 10e3/uL 06/20/2024 6:05 AM [employer] [facility] % Neutrophils 47 % 06/20/2024 6:05 AM [employer] [facility] % Lymphocytes 43 % 06/20/2024 6:05 AM [employer] [facility] % Monocytes 6 % 06/20/2024 6:05 AM [employer] [facility] % Eosinophils 3 % 06/20/2024 6:05 AM [employer] [facility] % Basophils 1 % 06/20/2024 6:05 AM [employer] [facility] % Immature Granulocytes 1 % 06/20/2024 6:05 AM [employer] [facility] NRBCs per 100 WBC 1(H) <1 /100 025 6:05 AM [employer] [facility] Absolute Neutrophils 4.4 1.6 - 8.3 10e3/uL 06/20/2024 6:05 AM [employer] [facility] Absolute Lymphocytes 4.0 0.8 - 5.3 10e3/uL 06/20/2024 6:05 AM [employer] [facility] Absolute Monocytes 0.5 0.0 - 1.3 10e3/uL 06/20/2024 6:05 AM [employer] [facility] Absolute Eosinophils 0.3 0.0 - 0.7 10e3/uL 06/20/2024 6:05 AM [employer] [facility] Absolute Basophils 0.1 0.0 - 0.2 10e3/uL 06/20/2024 6:05 AM [employer] [facility] Absolute Immature Granulocytes 0.1 <=0.4 10e3/uL 06/20/2024 6:05 AM [employer] [facility] Absolute NRBCs 0.1 10e3/uL 06/20/2024 6:05 AM [employer] [facility] Blood (Portacath) IVAD (Port) / Unknown 06/20/2024 5:48 AM [employer] 06/20/2024 5:55 AM [employer] us Rl Elias MD LAB - BLOOD ORDER SYD Final Result [facility] [address] [facility], [address] [place] [phone] * (ABNORMAL) Reticulocyte count (06/20/2024 5:48 AM [employer]) Pathologist [facility] % Reticulocyte 9.6(H) 0.5 - 2.0 % 06/20/2024 6:37 AM [employer] [facility] Absolute Reticulocyte 0.236(H) 0.025 - 0.095 10e6/uL 06/20/2024 6:37 AM [employer] [facility] Blood (Portacath) IVAD (Port) / Unknown 06/20/2024 5:48 AM [employer] 06/20/2024 5:55 AM [employer] us Rl Elias MD LAB - BLOOD ORDER SYD Final Result [facility] [address] [facility], [address] [place] [phone] * (ABNORMAL) Comprehensive metabolic panel (06/20/2024 5:48 AM [employer]) Sodium 133(L) 135 - 145 mmol/L 06/20/2024 6:35 AM [employer] [facility] Potassium 4.6 3.4 - 5.3 mmol/L 06/20/2024 6:35 AM [employer] [facility] Carbon Dioxide (CO2) 21(L) 22 - 29 mmol/L 06/20/2024 6:35 AM [employer] [facility] Anion Gap 8 7 - 15 mmol/L 06/20/2024 6:35 AM [employer] [facility] Urea Nitrogen 14.6 6.0 - 20.0 mg/dL 06/20/2024 6:35 AM [employer] [facility] Creatinine 0.66 0.51 - 0.95 mg/dL 06/20/2024 6:35 AM [employer] [facility] GFR Estimate >90 >60 mL/min/1.7 3m2 06/20/2024 6:35 AM [employer] [facility] Comment:eGFR calculated us2020 CKD-EPI equation. Calcium 8.7(L) 8.8 - 10.4 mg/dL 06/20/2024 6:35 AM [employer] [facility] Chloride 104 98 - 107 mmol/L 06/20/2024 6:35 AM [employer] [facility] Glucose 100(H) 70 - 99 mg/dL 06/20/2024 6:35 AM [employer] [facility] Alkaline Phosphatase 98 40 - 150 U/L 06/20/2024 6:35 AM [employer] [facility] AST 67(H) 0 - 45 U/L 06/20/2024 6:35 AM [employer] [facility] ALT 40 0 - 50 U/L 06/20/2024 6:35 AM [employer] [facility] Protein Total 7.2 6.4 - 8.3 g/dL 06/20/2024 6:35 AM [employer] [facility] Albumin 3.9 3.5 - 5.2 g/dL 06/20/2024 6:35 AM [employer] [facility] Bilirubin Total 1.5(H) <=1.2 mg/dL 06/20/2024 6:35 AM [employer] [facility] Blood (Portacath) IVAD (Port) / Unknown 06/20/2024 5:48 AM [employer] 06/20/2024 5:55 AM [employer] Rl Elias MD LAB - BLOOD ORDER SYD Final Result [facility] [address] [facility], [address] * (ABNORMAL) Lactate Dehydrogenase (06/20/2024 5:48 AM [employer]) Pathologist [facility] Lactate Dehydrogenase 571(H) 0 - 250 U/L 06/20/2024 6:35 AM [employer] [facility] Blood (Portacath) IVAD (Port) / Unknown 06/20/2024 5:48 AM [employer] 06/20/2024 5:55 AM [employer] Rl Elias MD LAB - BLOOD ORDER SYD Final Result [facility] [address] [facility], [address] * (ABNORMAL) RBC and Platelet Morphology (06/19/2024 9:30 AM [employer]) Pathologist [facility] RBC Morphology Confirmed RBC Indices 06/19/2024 11:43 AM [employer] [facility] Platelet Assessment Automated Count Confirmed. Giant platelets are present.(A) Automated Count Confirmed. Platelet morphology is normal. 06/19/2024 11:43 AM [employer] [facility] Giant Platelets Slight(A) None Seen 11:43 AM [employer] [facility] Elliptocytes None Seen None Seen 06/19/2024 11:43 AM [employer] [facility] Polychromasia Slight(A) None Seen 06/19/2024 11:43 AM [employer] [facility] RBC Fragments Slight(A) None Seen 06/19/2024 11:43 AM [employer] [facility] Reactive Lymphocytes Present(A) None Seen 06/19/2024 11:43 AM [employer] [facility] Sickle Cells Moderate(A) None Seen 06/19/2024 11:43 AM [employer] [facility] Smudge Cells Present(A) None Seen 06/19/2024 11:43 AM [employer] [facility] Target Cells Moderate(A) None Seen 06/19/2024 11:43 AM [employer] [facility] Blood CENTRAL VENOUS CATHETER / Unknown VAD(CVC, PICC) / Unknown 06/19/2024 9:30 AM [employer] 06/19/2024 9:42 AM [employer] Rl Elias MD LAB - BLOOD ORDER SYD Final Result [facility] [address] [facility], [address] [place] [phone] * (ABNORMAL) CBC with platelets and differential (06/19/2024 9:30 AM [employer]) WBC Count 9.9 4.0 - 11.0 10e3/uL 06/19/2024 11:43 AM [employer] [facility] RBC Count 2.55(L) 3.80 - 5.20 10e6/uL 06/19/2024 11:43 AM [employer] [facility] Hemoglobin 8.1(L) 11.7 - 15.7 g/dL 06/19/2024 11:43 AM [employer] [facility] Hematocrit 24.0(L) 35.0 - 47.0 % 06/19/2024 11:43 AM [employer] [facility] MCV 94 78 - 100 fL 06/19/2024 11:43 AM [employer] [facility] MCH 31.8 26.5 - 33.0 pg 06/19/2024 11:43 AM [employer] [facility] MCHC 33.8 31.5 - 36.5 g/dL 06/19/2024 11:43 AM [employer] [facility] RDW 18.4(H) 10.0 - 15.0 % 06/19/2024 11:43 AM [employer] [facility] Platelet Count 471(H) 150 - 450 10e3/uL 06/19/2024 11:43 AM [employer] [facility] % Neutrophils 62 % 06/19/2024 11:43 AM [employer] [facility] % Lymphocytes 28 % 06/19/2024 11:43 AM [employer] [facility] % Monocytes 6 % 06/19/2024 11:43 AM [employer] [facility] % Eosinophils 3 % 06/19/2024 11:43 AM [employer] [facility] % Basophils 1 % 06/19/2024 11:43 AM [employer] [facility] % Immature Granulocytes 1 % 06/19/2024 11:43 AM [employer] [facility] NRBCs per 100 WBC 4(H) <1 /100 025 11:43 AM [employer] [facility] Absolute Neutrophils 6.1 1.6 - 8.3 10e3/uL 06/19/2024 11:43 AM [employer] [facility] Absolute Lymphocytes 2.7 0.8 - 5.3 10e3/uL 06/19/2024 11:43 AM [employer] [facility] Absolute Monocytes 0.6 0.0 - 1.3 10e3/uL 06/19/2024 11:43 AM [employer] [facility] Absolute Eosinophils 0.3 0.0 - 0.7 10e3/uL 06/19/2024 11:43 AM [employer] [facility] Absolute Basophils 0.1 0.0 - 0.2 10e3/uL 06/19/2024 11:43 AM [employer] [facility] Absolute Immature Granulocytes 0.1 <=0.4 10e3/uL 06/19/2024 11:43 AM [employer] [facility] Absolute NRBCs 0.4 10e3/uL 06/19/2024 11:43 AM [employer] [facility] Blood CENTRAL VENOUS CATHETER / Unknown VAD(CVC, PICC) / Unknown 06/19/2024 9:30 AM [employer] 06/19/2024 9:42 AM [employer] us Rl Elias MD LAB - BLOOD ORDER SYD Final Result [facility] [address] [facility], [address] * (ABNORMAL) Reticulocyte count (06/19/2024 9:30 AM [employer]) % Reticulocyte 9.2(H) 0.5 - 2.0 % 06/19/2024 9:48 AM [employer] [facility] Absolute Reticulocyte 0.234(H) 0.025 - 0.095 10e6/uL 06/19/2024 9:48 AM [employer] [facility] Blood CENTRAL VENOUS CATHETER / Unknown VAD(CVC, PICC) / Unknown 06/19/2024 9:30 AM [employer] 06/19/2024 9:42 AM [employer] Rl Elias MD LAB - BLOOD ORDER SYD Final Result [facility] [address] [facility], [address] * (ABNORMAL) Comprehensive metabolic panel (06/19/2024 9:30 AM [employer]) Pathologist [facility] Sodium 135 135 - 145 mmol/L 06/19/2024 10:13 AM [employer] [facility] Potassium 4.4 3.4 - 5.3 mmol/L 06/19/2024 10:13 AM [employer] [facility] Carbon Dioxide (CO2) 21(L) 22 - 29 mmol/L 06/19/2024 10:13 AM [employer] [facility] Anion Gap 9 7 - 15 mmol/L 06/19/2024 10:13 AM [employer] [facility] Urea Nitrogen 12.3 6.0 - 20.0 mg/dL 06/19/2024 10:13 AM [employer] [facility] Creatinine 0.68 0.51 - 0.95 mg/dL 06/19/2024 10:13 AM [employer] [facility] GFR Estimate >90 >60 mL/min/1.7 3m2 06/19/2024 10:13 AM [employer] [facility] Comment:eGFR calculated us2020 CKD-EPI equation. Calcium 8.9 8.8 - 10.4 mg/dL 06/19/2024 10:13 AM [employer] [facility] Chloride 105 98 - 107 mmol/L 06/19/2024 10:13 AM [employer] [facility] Glucose 100(H) 70 - 99 mg/dL 06/19/2024 10:13 AM [employer] [facility] Alkaline Phosphatase 94 40 - 150 U/L 06/19/2024 10:13 AM [employer] [facility] AST 54(H) 0 - 45 U/L 06/19/2024 10:13 AM [employer] [facility] ALT 31 0 - 50 U/L 06/19/2024 10:13 AM [employer] [facility] Protein Total 7.1 6.4 - 8.3 g/dL 06/19/2024 10:13 AM [employer] [facility] Albumin 3.9 3.5 - 5.2 g/dL 06/19/2024 10:13 AM [employer] [facility] Bilirubin Total 1.5(H) <=1.2 mg/dL 06/19/2024 10:13 AM [employer] [facility] Blood CENTRAL VENOUS CATHETER / Unknown VAD(CVC, PICC) / Unknown 06/19/2024 9:30 AM [employer] 06/19/2024 9:41 AM [employer] Rl Elias MD LAB - BLOOD ORDER SYD Final Result [facility] [address] [place] [address], [address] [phone] * (ABNORMAL) Lactate Dehydrogenase (06/19/2024 9:30 AM [employer]) Lactate Dehydrogenase 507(H) 0 - 250 U/L 06/19/2024 10:13 AM [employer] [facility] Blood CENTRAL VENOUS CATHETER / Unknown VAD(CVC, PICC) / Unknown 06/19/2024 9:30 AM [employer]ER 06/19/2024 9:41 AM [employer] Rl Elias MD LAB - BLOOD ORDER SYD Final Result [facility] [address] [facility], [address] [phone] * (ABNORMAL) Platelet count (06/19/2024 12:17 AM [employer]ER) Pathologist [facility] Platelet Count 467(H) 150 - 450 10e3/uL 06/19/2024 12:44 AM [employer] [facility] Blood BLOOD SPECIMEN / Unknown Venipuncture / Unknown 06/19/2024 12:17 AM [employer] 06/19/2024 12:26 AM [employer] us Laquita Kelley MD LAB - BLOOD ORDERABLES Final Re sult [facility] [address] [facility], [address] [phone] * Creatinine (06/19/2024 12:17 AM [employer]ER) Pathologist [facility] Creatinine 0.72 0.51 - 0.95 mg/dL 06/19/2024 12:51 AM [employer] [facility] GFR Estimate >90 >60 mL/min/1.7 3m2 06/19/2024 12:51 AM [employer] [facility] Comment:eGFR calculated us2020 CKD-EPI equation. Blood BLOOD SPECIMEN / Unknown Venipuncture / Unknown 06/19/2024 12:17 AM [employer]ER 06/19/2024 12:26 AM [employer] us Laquita Kelley MD LAB - BLOOD ORDERABLES Final Re sult [facility] [address] [facility], [address] [phone] * (ABNORMAL) Manual Differential (06/18/2024 8:24 AM [employer]) % Neutrophils 52 % 06/18/2024 9:35 AM [employer] [facility] % Lymphocytes 39 % 06/18/2024 9:35 AM [employer] [facility] % Monocytes 7 % 06/18/2024 9:35 AM [employer] [facility] % Eosinophils 3 % 06/18/2024 9:35 AM [employer] [facility] % Basophils 0 % 06/18/2024 9:35 AM [employer] [facility] NRBCs per 100 WBC 13(H) <=0 % 06/18/2024 9:35 AM [employer] [facility] Absolute Neutrophils 5.6 1.6 - 8.3 10e3/uL 06/18/2024 9:35 AM [employer] [facility] Absolute Lymphocytes 4.2 0.8 - 5.3 10e3/uL 06/18/2024 9:35 AM [employer] [facility] Absolute Monocytes 0.7 0.0 - 1.3 10e3/uL 06/18/2024 9:35 AM [employer] [facility] Absolute Eosinophils 0.3 0.0 - 0.7 10e3/uL 06/18/2024 9:35 AM [employer] [facility] Absolute Basophils 0.0 0.0 - 0.2 10e3/uL 06/18/2024 9:35 AM [employer] [facility] Absolute NRBCs 1.4(H) <=0.0 10e3/uL 025 9:35 AM [employer] [facility] RBC Morphology Confirmed RBC Indices 06/18/2024 9:35 AM [employer] [facility] Platelet Assessment Automated Count Confirmed. Platelet morphology is normal. Automated Count Confirmed. Platelet morphology is normal. 06/18/2024 9:35 AM [employer] [facility] RBC Fragments Slight(A) None Seen 06/18/2024 9:35 AM [employer] [facility] Polychromasia Slight(A) None Seen 06/18/2024 9:35 AM [employer] [facility] Sickle Cells Moderate(A) None Seen 06/18/2024 9:35 AM [employer] [facility] Blood BLOOD SPECIMEN / Unknown Venipuncture / Unknown 06/18/2024 8:24 AM [employer]ER 06/18/2024 8:32 AM BAL[employer]ER us Rl Elias MD LAB - BLOOD ORDER SYD Final Result [facility] [address] [facility], [address] [place] [address], [place] * (ABNORMAL) CBC with platelets and differential (06/18/2024 8:24 AM BALANCE WHE[employer] SCRE[employer]RILLER) WBC Count 10.8 4.0 - 11.0 10e3/uL 06/18/2024 9:24 AM [employer] [facility] RBC Count 2.51(L) 3.80 - 5.20 10e6/uL 06/18/2024 9:24 AM [employer] [facility] Hemoglobin 8.1(L) 11.7 - 15.7 g/dL 06/18/2024 9:24 AM [employer] [facility] Hematocrit 23.1(L) 35.0 - 47.0 % 06/18/2024 9:24 AM BALANCE [employer] [facility] MCV 92 78 - 100 fL 06/18/2024 9:24 AM [employer] [facility] MCH 32.3 26.5 - 33.0 pg 06/18/2024 9:24 AM [employer] [facility] MCHC 35.1 31.5 - 36.5 g/dL 06/18/2024 9:24 AM [employer] [facility] RDW 18.7(H) 10.0 - 15.0 % 06/18/2024 9:24 AM [employer] [facility] Platelet Count 452(H) 150 - 450 10e3/uL 06/18/2024 9:24 AM [employer] [facility] Blood BLOOD SPECIMEN / Unknown Venipuncture / Unknown 06/18/2024 8:24 AM [employer]ER 06/18/2024 8:32 AM [employer]ER Rl Elias MD LAB - BLOOD ORDER SYD Final Result [facility] [address] [facility], [address] [place] [phone], [facility] * (ABNORMAL) Reticulocyte count (06/18/2024 8:24 AM [employer]ANCE [employer]ER) % Reticulocyte 10.0(H) 0.5 - 2.0 % 06/18/2024 8:38 AM [employer] [facility] Absolute Reticulocyte 0.250(H) 0.025 - 0.095 10e6/uL 06/18/2024 8:38 AM [employer] [facility] Blood BLOOD SPECIMEN / Unknown Venipuncture / Unknown 06/18/2024 8:24 AM [employer]ER 06/18/2024 8:32 AM [employer] WHE[employer]ER Rl Elias MD LAB - BLOOD ORDER SYD Final Result [facility] [address] [facility], [address] [place] [phone] * (ABNORMAL) Comprehensive metabolic panel (06/18/2024 8:24 AM BALANCE [employer]ER) Sodium 133(L) 135 - 145 mmol/L 06/18/2024 9:02 AM [employer] [facility] Potassium 4.3 3.4 - 5.3 mmol/L 06/18/2024 9:02 AM [employer] [facility] Carbon Dioxide (CO2) 21(L) 22 - 29 mmol/L 06/18/2024 9:02 AM [employer] [facility] Anion Gap 7 7 - 15 mmol/L 06/18/2024 9:02 AM [employer] [facility] Urea Nitrogen 9.2 6.0 - 20.0 mg/dL 06/18/2024 9:02 AM [employer] [facility] Creatinine 0.65 0.51 - 0.95 mg/dL 06/18/2024 9:02 AM [employer] [facility] GFR Estimate >90 >60 mL/min/1.7 3m2 06/18/2024 9:02 AM [employer] [facility] Comment:eGFR calculated us2020 CKD-EPI equation. Calcium 8.7(L) 8.8 - 10.4 mg/dL 06/18/2024 9:02 AM [employer] [facility] Chloride 105 98 - 107 mmol/L 06/18/2024 9:02 AM [employer] [facility] Glucose 92 70 - 99 mg/dL 06/18/2024 9:02 AM [employer] [facility] Alkaline Phosphatase 86 40 - 150 U/L 06/18/2024 9:02 AM [employer] [facility] AST 45 0 - 45 U/L 06/18/2024 9:02 AM [employer] [facility] ALT 27 0 - 50 U/L 06/18/2024 9:02 AM [employer] [facility] Protein Total 7.0 6.4 - 8.3 g/dL 06/18/2024 9:02 AM [employer] [facility] Albumin 3.9 3.5 - 5.2 g/dL 06/18/2024 9:02 AM [employer] [facility] Bilirubin Total 1.4(H) <=1.2 mg/dL 06/18/2024 9:02 AM [employer] [facility] Blood BLOOD SPECIMEN / Unknown Venipuncture / Unknown 06/18/2024 8:24 AM [employer] 06/18/2024 8:32 AM [employer] Rl Elias MD LAB - BLOOD ORDER SYD Final Result [facility] [address] [facility], [address] * (ABNORMAL) Lactate Dehydrogenase (06/18/2024 8:24 AM [employer]) Lactate Dehydrogenase 491(H) 0 - 250 U/L 06/18/2024 9:02 AM [employer] [facility] Blood BLOOD SPECIMEN / Unknown Venipuncture / Unknown 06/18/2024 8:24 AM [employer] 06/18/2024 8:32 AM [employer] us Rl Elias MD LAB - BLOOD ORDER SYD Final Result [facility] [address] [facility], [address] * Transfuse red blood cells (unit), Sickle Cell (Hgb S) Negative (06/17/2024 2:33 PM [employer]) Result Caleb Nina MD BLOOD TRANSFUSION ORDERABLES Final Result * Transfuse red blood cells (unit), 1 Units, Sickle Cell (Hgb S) Negative (06/17/2024 2:33 PM [employer]) Result Caleb Nina MD BLOOD TRANSFUSION ORDERABLES Final Result * (ABNORMAL) UA with Microscopic reflex to Culture (06/17/2024 1:11 PM [employer]) Color Urine Light Yellow Colorless, Straw, Light Yellow, Yellow 06/17/2024 1:48 PM [employer] [facility] Appearance Urine Clear Clear 06/17/19 1:48 PM [employer] [facility] Glucose Urine Negative Negative mg/dL 06/17/2024 1:48 PM [employer] [facility] Bilirubin Urine Negative Negative 1:48 PM [employer] [facility] Ketones Urine Negative Negative mg/dL 06/17/2024 1:48 PM [employer] [facility] Specific [place] Urine 1.009 1.003 - 1.035 06/17/2024 1:48 PM [employer] [facility] Blood Urine Trace(A) Negative 06/17/2024 1:48 PM [employer] [facility] pH Urine 6.5 5.0 - 7.0 06/17/2024 1:48 PM [employer] [facility] Protein Albumin Urine Negative Negative mg/dL 06/17/2024 1:48 PM [employer] [facility] Urobilinogen Urine Normal Normal, 2.0 mg/dL 06/17/2024 1:48 PM [employer] [facility] Nitrite Urine Negative Negative 06/17/2024 1:48 PM [employer] [facility] Leukocyte Esterase Urine Small(A) Negative 06/17/2024 1:48 PM [employer] [facility] RBC Urine <1 <=2 /HPF 06/17/2024 1:48 PM [employer] [facility] WBC Urine <1 <=5 /HPF 06/17/2024 1:48 PM [employer] [facility] Squamous Epithelials Urine 3(H) <=1 /HPF 06/17/2024 1:48 PM [employer] [facility] Urine URINE SPECIMEN OBTAINED BY CLEAN CATCH PROCEDURE / Unknown Non-blood Collection / Unknown 06/17/2024 1:11 PM [employer] 06/17/2024 1:38 PM [employer] Narrative [facility] - 06/17/2024 1:48 PM [employer] Urine Culture not indicated us Rl Elias MD LAB - URINE ORDER SYD Final Result [facility] Core Lab [address], [address] [place] [address] * Prepare red blood cells (unit) (06/17/2024 9:12 AM [employer]) [facility] Blood Component Type Red Blood Cells [facility] B[facility]OD B[facility] Product Code [id number] [facility] BLOO D BANK Unit Status Transfused [facility]U BLOO D BANK Unit Number [id number] UU B LOOD BANK CROSSMATCH COMPATIBLE UU BLOOD BANK CODING SYSTEM [id number] UU BLO OD BANK ISSUE DATE AND TIME [id number] UU BLOOD BANK UNIT ABO/RH A+ UU BLOOD BANK UNIT TYPE ISBT [id number] UU BL OOD BANK 06/17/2024 9:12 AM [employer] us Drake Nina MD BLOOD BANK PRODUCT ORDERABLES Final Result Performing Organization Address [facility]/ZIP Co de Phone Number BLOOD BANK [address] [place] [phone] * (ABNORMAL) Transferrin (06/17/2024 6:16 AM [employer]) [facility] Transferrin 100.0(L) 200.0 - 360.0 mg/dL 06/17/2024 9:36 AM [employer] [facility] Blood VENOUS LINE / Unknown IVAD (Port) / Unknown 06/17/2024 6:16 AM [employer] 06/17/2024 6:27 AM [employer] Drake Nina MD LAB - BLOOD ORDERABLES Final Result LABORATORY [facility] Core Lab [address] [facility], [address] [place] [phone] * Iron and iron binding capacity (06/17/2024 6:16 AM [employer]) [facility] Iron 123 37 - 145 ug/dL 06/17/2024 10:02 AM [employer] [facility] Iron Binding Capacity 06/17/2024 10:02 AM [employer] [facility] Comment:Unable to calculate: UIBC or Iron value is outside detectable level. Iron Sat Index 06/17/2024 10:02 AM [employer] [facility] Comment:Unable to calculate: UIBC or Iron value is outside detectable level. Blood VENOUS LINE / Unknown IVAD (Port) / Unknown 06/17/2024 6:16 AM [employer] 06/17/2024 6:27 AM [employer] us Drake Nina MD LAB - BLOOD ORDERABLES Final Result [facility] Core Lab [address] [facility], [address] [place] [phone] * (ABNORMAL) CBC with platelets (06/17/2024 6:16 AM [employer]) WBC Count 14.6(H) 4.0 - 11.0 10e3/uL 06/17/2024 6:38 AM [employer] [facility] RBC Count 1.97(L) 3.80 - 5.20 10e6/uL 06/17/2024 6:38 AM [employer] [facility] Hemoglobin 6.3(LL) 11.7 - 15.7 g/dL 06/17/2024 6:38 AM [employer] [facility] Hematocrit 17.9(L) 35.0 - 47.0 % 06/17/2024 6:38 AM [employer] [facility] MCV 91 78 - 100 fL 06/17/2024 6:38 AM [employer] [facility] MCH 32.0 26.5 - 33.0 pg 06/17/2024 6:38 AM [employer] [facility] MCHC 35.2 31.5 - 36.5 g/dL 06/17/2024 6:38 AM [employer] [facility] RDW 20.1(H) 10.0 - 15.0 % 06/17/2024 6:38 AM [employer] [facility] Platelet Count 468(H) 150 - 450 10e3/uL 06/17/2024 6:38 AM [employer] [facility] Blood VENOUS LINE / Unknown IVAD (Port) / Unknown 06/17/2024 6:16 AM [employer] 06/17/2024 6:27 AM [employer] us Laquita Kelley MD LAB - BLOOD ORDERABLES Final Re sult [facility] Core Lab [address] [facility], [address] [place] [address] * (ABNORMAL) Basic metabolic panel (06/17/2024 6:16 AM [employer]) Sodium 134(L) 135 - 145 mmol/L 06/17/2024 6:55 AM [employer] [facility] Potassium 4.6 3.4 - 5.3 mmol/L 06/17/2024 6:55 AM [employer] [facility] Chloride 105 98 - 107 mmol/L 06/17/2024 6:55 AM [employer] [facility] Carbon Dioxide (CO2) 20(L) 22 - 29 mmol/L 06/17/2024 6:55 AM [employer] [facility] Anion Gap 9 7 - 15 mmol/L 06/17/2024 6:55 AM [employer] [facility] Urea Nitrogen 16.1 6.0 - 20.0 mg/dL 06/17/2024 6:55 AM [employer] [facility] Creatinine 0.90 0.51 - 0.95 mg/dL 06/17/2024 6:55 AM [employer] [facility] GFR Estimate 88 >60 mL/min/1.7 3m2 06/17/2024 6:55 AM [employer] [facility] Comment:eGFR calculated us2020 CKD-EPI equation. Calcium 8.4(L) 8.8 - 10.4 mg/dL 06/17/2024 6:55 AM [employer] [facility] Glucose 95 70 - 99 mg/dL 06/17/2024 6:55 AM [employer] [facility] Blood VENOUS LINE / Unknown IVAD (Port) / Unknown 06/17/2024 6:16 AM [employer] 06/17/2024 6:27 AM [employer] Laquita Kelley MD LAB - BLOOD ORDERABLES Final Re sult [facility] Core Lab [address] [facility], [address] [place] [address] * Troponin T, High Sensitivity (06/16/2024 9:33 PM [employer]) Troponin T, High Sensitivity 8 <=14 ng/L 06/16/2024 10:13 PM [employer] [facility] Comment: Either a High Sensitivity [...] IVAD (Port) / Unknown 06/16/2024 9:33 PM [employer] 06/16/2024 9:44 PM [employer] us Varghesegiulia Schofield MD LAB - BLOOD ORDERABLE S Final Result U LABORATORY [facility] Core Lab [address] [facility], [address] [phone] * Chest XR, PA & LAT (06/16/2024 6:09 PM [employer]) Anatomical Region Laterality Modality Chest Digital Radiogra phy 06/16/2024 6:09 PM [employer] Impressions 06/16/2024 6:13 PM [employer] IMPRESSION: Left chest port catheter in stable position. Stable position of right central venous catheter. No airspace opacity, pleural effusion or pneumothorax. Narrative 06/16/2024 6:13 PM [employer] EXAM: XR CHEST 2 VIEWS LOCATION: [facility] DATE: 06/16/2024 INDICATION: chest pain COMPARISON: 06/12/2024 Procedure Note Richar Haines MD - 06/16/2024 EXAM: XR CHEST 2 VIEWS LOCATION: [facility] DATE: 06/16/2024 INDICATION: chest pain COMPARISON: 06/12/2024 IMPRESSION: Left chest port catheter in stable position. Stable positionof right central venous catheter. No airspace opacity, pleural effusion orpneumothorax. us Abimael Schofield MD IMG DIAGNOSTIC IMAGIN G ORDERABLES Final Result * RBC and Platelet Morphology (06/16/2024 5:37 PM [employer]) RBC Morphology Confirmed RBC Indices 06/16/2024 7:40 PM [employer] [facility] Platelet Assessment Automated Count Confirmed. Platelet morphology is normal. Automated Count Confirmed. Platelet morphology is normal. 06/16/2024 7:40 PM [employer] [facility] Blood BLOOD SPECIMEN / Unknown Venipuncture / Unknown 06/16/2024 5:37 PM [employer] 06/16/2024 5:46 PM [employer] us Varghesegiulia Schofield MD LAB - BLOOD ORDERABLE S Final Result Performing Organization Address City/[facility]/ZIP Co de Phone Number [facility] Core Lab [address] [facility], [address] [phone] * Adult Type and Screen (06/16/2024 5:37 PM [employer]) ABO/RH(D) A POS 06/16/2024 5:08 PM [employer] [facility] Antibody Screen Negative Negative 06/16/2024 5:08 PM [employer] [facility] Comment:Current antibody scr een is negative. Patient has a history of antibody(ies). A delay in compatible red blood cells may occur. SPECIMEN EXPIRATION DATE [id number] 06/16/2024 5:08 PM [employer] [facility] B[facility]OD BANK Blood BLOOD SPECIMEN / Unknown Venipuncture / Unknown 06/16/2024 5:37 PM [employer] 06/16/2024 5:46 PM [employer] us Varghesegiulia Schofield MD LAB - BLOOD BANK TEST ORDER Final Result [facility] BLOOD BANK [address] [place] [phone], [facility] * (ABNORMAL) CBC with platelets and differential (06/16/2024 5:37 PM [employer]) [facility] Signature WBC Count 21.0(H) 4.0 - 11.0 10e3/uL 06/16/2024 7:41 PM [employer] [facility] RBC Count 2.34(L) 3.80 - 5.20 10e6/uL 06/16/2024 7:41 PM [employer] [facility] Hemoglobin 7.4(L) 11.7 - 15.7 g/dL 06/16/2024 7:41 PM [employer] [facility] Hematocrit 21.7(L) 35.0 - 47.0 % 06/16/2024 7:41 PM [employer] [facility] MCV 93 78 - 100 fL 06/16/2024 7:41 PM [employer] [facility] MCH 31.6 26.5 - 33.0 pg 06/16/2024 7:41 PM [employer] [facility] MCHC 34.1 31.5 - 36.5 g/dL 06/16/2024 7:41 PM [employer] [facility] RDW 19.3(H) 10.0 - 15.0 % 06/16/2024 7:41 PM [employer] [facility] Platelet Count 551(H) 150 - 450 10e3/uL 06/16/2024 7:41 PM [employer] [facility] % Neutrophils 69 % 06/16/2024 7:41 PM [employer] [facility] % Lymphocytes 20 % 06/16/2024 7:41 PM [employer] [facility] % Monocytes 9 % 06/16/2024 7:41 PM [employer] [facility] % Eosinophils 0 % 06/16/2024 7:41 PM [employer] [facility] % Basophils 1 % 06/16/2024 7:41 PM [employer] [facility] % Immature Granulocytes 1 % 06/16/2024 7:41 PM [employer] [facility] NRBCs per 100 WBC 1(H) <1 /100 025 7:41 PM [employer] [facility] Absolute Neutrophils 14.5(H) 1.6 - 8.3 10e3/uL 06/16/2024 7:41 PM [employer] [facility] Absolute Lymphocytes 4.2 0.8 - 5.3 10e3/uL 06/16/2024 7:41 PM [employer] [facility] Absolute Monocytes 2.0(H) 0.0 - 1.3 10e3/uL 06/16/2024 7:41 PM [employer] [facility] Absolute Eosinophils 0.0 0.0 - 0.7 10e3/uL 06/16/2024 7:41 PM [employer] [facility] Absolute Basophils 0.2 0.0 - 0.2 10e3/uL 06/16/2024 7:41 PM [employer] [facility] Absolute Immature Granulocytes 0.1 <=0.4 10e3/uL 06/16/2024 7:41 PM [employer] [facility] Absolute NRBCs 0.3 10e3/uL 06/16/2024 7:41 PM [employer] [facility] Blood BLOOD SPECIMEN / Unknown Venipuncture / Unknown 06/16/2024 5:37 PM [employer] 06/16/2024 5:46 PM [employer] us Varghesegiulia Schofield MD LAB - BLOOD ORDERABLE S Final Result Performing Organization Address City/[facility]/ZIP Co de Phone Number [facility] Core Lab [address] [facility], [address] * (ABNORMAL) Prolactin (06/16/2024 5:37 PM [employer]) Pathologist [facility] Prolactin 55(H) 5 - 23 ng/mL 06/16/2024 6:24 PM [employer] [facility] Blood BLOOD SPECIMEN / Unknown Venipuncture / Unknown 06/16/2024 5:37 PM [employer] 06/16/2024 5:46 PM [employer] us Varghesegiulia Schofield MD LAB - BLOOD ORDERABLE S Final Result [facility] Core Lab [address] [facility], [address] * Blood Culture Peripheral Blood (06/16/2024 5:37 PM [employer]) Pathologist [facility] Culture No Growth 06/21/2024 6:47 PM [employer] [facility] IDD LABORATORY Blood BLOOD SPECIMEN / Unknown Venipuncture / Unknown 06/16/2024 5:37 PM [employer] 06/16/2024 5:47 PM [employer] Varghesegiulia Schofield MD LAB - MICRO GENERAL O RDERABLES Final Result Performing Organization Address City/[facility]/ZIP Co de Phone Number IDD LABORATORY [facility] Inf. Diseases Diag. Lab [address] [facility], [address] * Troponin T, High Sensitivity (06/16/2024 5:37 PM [employer]) Troponin T, High Sensitivity 6 <=14 ng/L 06/16/2024 6:24 PM [employer] U LAB[facility]ATORY Comment: Either a High Sensitivity [...] Unknown Venipuncture / Unknown 06/16/2024 5:37 PM [employer] 06/16/2024 5:46 PM [employer] us Abimael Schofield MD LAB - BLOOD ORDERABLE S Final Result Performing Organization Address City/[facility]/ZIP Co de Phone Number LABORATORY [facility] Core Lab [address] [facility], [address] * (ABNORMAL) Comprehensive metabolic panel (06/16/2024 5:37 PM [employer]) Sodium 135 135 - 145 mmol/L 06/16/2024 6:24 PM [employer] [facility] Potassium 4.2 3.4 - 5.3 mmol/L 06/16/2024 6:24 PM [employer] [facility] Carbon Dioxide (CO2) 18(L) 22 - 29 mmol/L 06/16/2024 6:24 PM [employer] [facility] Anion Gap 14 7 - 15 mmol/L 06/16/2024 6:24 PM [employer] [facility] Urea Nitrogen 17.3 6.0 - 20.0 mg/dL 06/16/2024 6:24 PM [employer] [facility] Creatinine 0.92 0.51 - 0.95 mg/dL 06/16/2024 6:24 PM [employer] [facility] GFR Estimate 85 >60 mL/min/1.7 3m2 06/16/2024 6:24 PM [employer] [facility] Comment:eGFR calculated us2020 CKD-EPI equation. Calcium 9.5 8.8 - 10.4 mg/dL 06/16/2024 6:24 PM [employer] [facility] Chloride 103 98 - 107 mmol/L 06/16/2024 6:24 PM [employer] [facility] Glucose 122(H) 70 - 99 mg/dL 06/16/2024 6:24 PM [employer] [facility] Alkaline Phosphatase 105 40 - 150 U/L 06/16/2024 6:24 PM [employer] [facility] AST 49(H) 0 - 45 U/L 06/16/2024 6:24 PM [employer] [facility] ALT 32 0 - 50 U/L 06/16/2024 6:24 PM [employer] [facility] Protein Total 8.6(H) 6.4 - 8.3 g/dL 06/16/2024 6:24 PM [employer] [facility] Albumin 4.6 3.5 - 5.2 g/dL 06/16/2024 6:24 PM [employer] [facility] Bilirubin Total 2.0(H) <=1.2 mg/dL 06/16/2024 6:24 PM [employer] [facility] Blood BLOOD SPECIMEN / Unknown Venipuncture / Unknown 06/16/2024 5:37 PM [employer] 06/16/2024 5:46 PM [employer] us Varghese Cipriano Schofield MD LAB - BLOOD ORDERABLE S Final Result [facility] Core Lab [address] [facility], [address] [place] [phone], [facility] * EKG 12 lead (06/16/2024 4:55 PM [employer]) Systolic Blood Pressure mmHg RADIOLOGY RESULTS Diastolic Blood Pressure mmHg RADIOLOGY RESULTS Ventricular Rate 122 BPM RAD IOLOGY RESULTS Atrial Rate 122 BPM RADIOLOG Y RESULTS MO Interval 128 ms RADIOLOG Y RESULTS QRS Duration 74 ms RADIOLO GY RESULTS QT 314 ms RADIOLOGY RESULTS QTc 447 ms RADIOLOGY RESULTS P Perkins 63 degrees RADIOLOGY RESULTS R AXIS 83 degrees RADIOLOGY RESULTS T Perkins 29 degrees RADIOLOGY RESULTS Interpretation ECG Sinus tachycardia Otherwise normal ECG Unconfirmed report - interpretation of this ECG is computer generated - see medical record for final interpretation Confirmed by - EMERGENCY ROOM, PHYSICIAN ([id number]), photo editor KARLA WILLIAMSON ([id number]) on 06/17/2024 6:56:59 AM RADIOLOGY RESULTS 06/16/2024 4:55 PM [employer] 06/17/2024 6:56 AM [employer] us Varghese Cipriano Schofield MD ECG ORDERABLES [...] days, Indications: pneumoniaIndications:pneumonia $Given 06/18/2024 8:40 PM [employer] 200 mg $Given 06/18/2024 12:05 PM [employer] 200 mg $Given 06/17/2024 9:25 PM [employer] 200 mg diclofenac (VOLTAREN) 1 % topical gel 2 g 2 g, Topical, 4 TIMES DAILY, First dose on 06/17/24 at 1400, Apply to areas of pain. Use supplied dosing card to measure dose. diphenhydrAMINE (BENADRYL) capsule 25 mg 25 mg, Oral, EVERY 6 HOURS PRN, itching, Starting on Wed06/16/24 at 1956 $Given 06/19/2024 12:46 PM [employer] 25 mg diphenhydrAMINE (BENADRYL) injection 25 mg 25 mg, Intravenous, EVERY 6 HOURS PRN, itching, Starting on Wed06/16/24 at 1956 $Given 06/20/2024 8:36 AM [employer] 25 mg $Given 06/20/2024 2:08 AM [employer] 25 mg $Given 06/19/2024 8:21 PM [employer] 25 mg enoxaparin ANTICOAGULANT (LOVENOX) injection 40 mg 40 mg, Subcutaneous, EVERY 24 HOURS, First dose on Wed06/16/24 at 2100, Contact provider if platelet count drops by 50% or more after enoxaparin initiation OR if platelet count falls below 50 x 10e3/uL $Given 06/19/2024 8:29 PM [employer] 40 mg $Given 06/18/2024 8:01 PM [employer] 40 mg $Given 06/17/2024 9:32 PM [employer] 40 mg FLUoxetine (PROzac) capsule 10 mg 10 mg, Oral, DAILY, First dose on Wed06/17/24 at 0800 $Given 06/20/2024 7:54 AM [employer] 10 mg $Given 06/19/2024 8:54 AM [employer]ER 10 mg $Given 06/18/2024 9:54 AM [employer] 10 mg folic acid (FOLVITE) tablet 1 mg 1 mg, Oral, DAILY, First dose on Wed06/17/24 at 0800 $Given 06/20/2024 7:51 AM [employer] 1 mg $Given 06/19/2024 8:54 AM [employer] 1 mg $Given 06/18/2024 8:09 AM [employer] 1 mg heparin lock flush 10 unit/mL [...] each port lumen $Given 06/20/2024 10:55 AM [employer] 5 mLs hydromorphone (DILAUDID) injection 2 mg 2 mg, Intravenous, EVERY 1 HOUR PRN, moderate pain, Starting on Wed06/16/24 at 1708, For 3 doses $Given 06/16/2024 8:20 PM [employer] 2 mg $Given 06/16/2024 5:42 PM [employer] 2 mg hydromorphone (DILAUDID) injection 2 mg 2 mg, Intravenous, EVERY 3 HOURS, First dose on Wed06/16/24 at 2100, May use concomitant with non-opioid analgesics. $Given 06/16/2024 9:59 PM [employer] 2 mg hydromorphone (DILAUDID) injection 2 mg 2 mg, Intravenous, EVERY 2 HOURS, First dose (after last modification) on Wed06/17/24 at 0000, May use concomitant with non-opioid analgesics. $Given 06/20/2024 9:53 AM [employer] 2 mg $Given 06/20/2024 7:49 AM [employer] 2 mg $Given 06/20/2024 5:51 AM [employer] 2 mg hydroxyurea (HYDREA) capsule 1,000 mg 1,000 mg, Oral, 2 TIMES DAILY, First dose on Wed06/16/24 at 2100, Indications: Sickle cell anemia, Do not crush May require hepatic and/or renal dose or frequency adjustments. See reference link for guidelines.Indications:Sickle cell anemia $Given 06/20/2024 7:51 AM [employer] 1,000 mg $Given 06/19/2024 8:13 PM [employer] 1,000 mg $Given 06/19/2024 8:55 AM [employer] 1,000 mg lactated ringers infusion at 75 mL/hr, Intravenous, CONTINUOUS, Starting on 06/18/24 at 0845, Until Tu06/20/24 at 0815 Rate/Dose Verify 06/20/2024 8:00 AM [employer] 75 mL/hr $New Bag 06/19/2024 10:38 PM [employer] 75 mL/hr Rate/Dose Verify 06/19/2024 8:29 PM [employer] 75 mL/h r Lidocaine (LIDOCARE) 4 % [...] 06/16/24 at 1958 $Given 06/20/2024 2:08 AM [employer] 4 mg $Given 06/19/2024 8:15 PM [employer] 4 mg $Given 06/19/2024 12:46 PM [employer]ER 4 mg polyethylene glycol (MIRALAX) Packet 17 [...] each port lumen. $Given 06/20/2024 10:54 AM [employer] 10 mLs sodium chloride (PF) 0.9% PF flush 3 mL 3 mL, Intracatheter, EVERY 8 HOURS, First dose on Wed06/16/24 at 1710, to lock peripheral IV dormant line $Given 06/20/2024 12:24 AM [employer] 3 mLs $Given 06/18/2024 6:22 PM [employer] 3 mLs $Given 06/17/2024 7:34 AM [employer] 3 mLs sodium chloride (PF) 0.9% PF flush 3 mL 3 mL, Intracatheter, EVERY 1 MIN PRN, line flush, other, to ensure patency or to lock dormant line, Starting on Wed06/16/24 at 1706 sodium chloride (PF) 0.9% PF flush 3 mL 3 mL, Intracatheter, EVERY 8 HOURS, First dose on Wed06/16/24 at 2100, to lock peripheral IV dormant line $Given 06/20/2024 4:41 AM [employer] 3 mLs $Given 06/19/2024 12:56 PM [employer] 3 mLs $Given 06/18/2024 12:07 PM [employer] 3 mLs sodium chloride (PF) 0.9% PF flush 3 mL 3 mL, Intracatheter, EVERY 1 MIN PRN, line flush, other, to ensure patency or to lock dormant line, Starting on Wed06/16/24 at 2058 $Given 06/20/2024 5:5 2 AM [employer] 3 mLs $Given 06/20/2024 2:59 AM [employer] 3 mLs $Given 06/20/2024 2:07 AM [employer] 3 mLs sodium chloride 0.9 % infusion at 75 mL/hr, Intravenous, CONTINUOUS, Starting on Wed06/16/24 at 1710, Until Wed06/18/24 at 0843 Rate/Dose Verify 06/18/2024 8:07 AM [employer] 75 mL/hr $New Bag 06/17/2024 9:42 PM [employer] 75 mL/hr $New Bag 06/17/2024 4:05 PM [employer] 75 mL/hr sodium chloride 0.9% BOLUS 500 mL Intravenous, 500 mL, ONCE, at 500 mL/hr, Administer over 1 Hours, On Wed06/16/24 at 1710, For 1 dose $New Bag 06/16/2024 5:51 PM [employer] 500 mLs 500 mL/hr documented in this encounter Active and Recently Administered Medications Times are shown in [employer]. Scheduled Medication Order 06/18/2024 06/19/2024 06/20/2024 cefpodoxime [...] Provider: Amelia Gannon RN)0350 ($Given - Provider: Aemlia Gannon RN)0552 ($Given - Provider: Amelia Gannon [...] - Provider: Rene Morocho RN - Comment: fha underwriter used scheudled dose instead of PRN dose [...] stools. documented in this encounter Care Teams Can Tender Relationship Specialty Start Date End Date No Ref-Primary, Physician PCP - General 03/15/24 06/17/24 Veronica Joseph MD [address] [place] [address] PCP - General Family Medicine 06/18/24 Elvira Ramseyc Medical Student 04/03/24 Case Samuel MD [address] [place] [address] 484, [id number] [place], [place] [address] Assigned Pediatric Specialist Provider 05/18/24 Juhi Benson, RN Specialty Drafter Structural Hematology & Oncology 05/29/24 documented as of this encounter
--- OUTSIDE RECORDS SUMMARY | 2024-06-30 23:57 | XMS_ITS | Encounter Summary ---
Author Organization [facility] Address [address] [place] [address] Care Team Providers Care Pop Singer Name Role Phone No Ref-Primary, Physician Primary Care Provider Mor Ramsey Unavailable Unavailable Case Samuel MD Unavailable [phone] Juhi Benson RN Unavailable Unavailable Reason for Visit * Reason Onset Date Comments Refill Request 06/15/2024 Encounter Details Date Type Department Care Team (Late st Contact Info) Description 06/15/[address] [place] [address] Case Samuel MD [address] [place] [address] 484, [address] [place], [place] [address] Refill Request Social History Tobacco Use Types [...] file Legal 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 Samuel and SOFIA ReynagaCC. UCT PICKER documented in this encounter Plan of Treatment Upcoming Encounters Date Type Department Care Team (Late st Contact Info) Description 07/10/2024 11:30 AM CDT Oncology Visit [facility] [address] [place] [address] Case Samuel MD [address] [place] [address], [address] [place] [address] documented as of this encounter Goals Goal Patient Goal Type Associated Problems Recent Progress Patient-Stated? Author Pain Management General On track( 025 12:40 PM PRODUCT PICKER) Yes Juhi Benson, SOFIA Note: Goal Statement: [...] crisis documented in this encounter Care Teams Pop Singer Relationship Specialty Start Date End Date No Ref-Primary, Physician PCP - General 03/15/24 06/17/24 Mor Ramsey Medical Student 04/03/24 Case Samuel MD [address] [place] [address], [address] [place] [address] Assigned Pediatric Specialist Provider 05/18/24 Juhi Benson, RN Specialty Termite Technician Hematology & Oncology 05/29/24 documented as of this encounter
--- OUTSIDE RECORDS SUMMARY | 2024-06-30 23:57 | XMS_ITS | Encounter Summary ---
Author Organization [facility] Address [address] [place] [address]. 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 [address] [place] [address] Case Samuel MD [address] [place] [address], [address] [place], [place] [address] documented as of this encounter Goals Goal Patient Goal Type Associated Problems Recent Progress Patient-Stated? Author Pain Management General On track( 025 12:40 PM SPOUT LINER) Yes Juhi Benson RN Note: Goal Statement: [...] on filedocumented in this encounter Care Teams Sql Server Bi Developer Relationship Specialty Start Date End Date Veronica Joseph MD [address] [place] [address] PCP - General Family Medicine 06/18/24 Mor Ramsey Medical Student 04/03/24 Case Samuel MD [address] [place] [address], [address] [place] [address] Assigned Pediatric Specialist Provider 05/18/24 Juhi Benson, RN Specialty Hypercil Core Transformer Assembler Hematology & Oncology 05/29/24 documented as of this encounter
--- OUTSIDE RECORDS SUMMARY | 2024-06-30 23:58 | XMS_ITS | Encounter Summary ---
Author Organization [facility] Address [address] [place] [address] Care Team Providers Care Rigger Name Role Phone RoxyElvirac Unavailable Unavailable Case Samuel MD Unavailable [phone] Juhi Benson RN Unavailable Unavailable Veronica Joseph MD Primary Care Provider [phone] Reason for Visit * Reason Comments Sickle Cell Pain Crisis Pt reports pain in her back and b/l lower extremities. Encounter Details Date Type Department Care Team (Late st Contact Info) Description 06/24/2024 9:28 AM DRUM WORKER - 06/24/2024 1:05 PM DRUM WORKER Emergency [facility] Emergency Department [address] [place] [phone] Richar Mahajan MD [address] [place] [phone] Sickle cell disease with crisis (H) Discharge [...] on file Legal Sex Female 8:25 AM DRUM WORKER Gender Identity Not on file Sexual Orientation Not on file documented as of this encounter Last Filed Vital Signs Vital Sign Reading Time Taken Comments Blood Pressure 111/67 06/24/2024 11:56 AM DRUM WORKER Pulse 101 06/24/2024 12:11 PM DRUM WORKER Temperature 36.9 C (98.4 F) 06/24/2024 9:26 AM DRUM WORKER Respiratory Rate 16 06/24/2024 9:26 AM DRUM WORKER Oxygen Saturation 100% 06/24/2024 12:11 PM DRUM WORKER Inhaled Oxygen Concentration - - Weight 52.2 kg (115 lb) 06/24/2024 9:26 AM DRUM WORKER Height 154.9 cm (5' 1) 06/24/2024 9:26 AM DRUM WORKER Body Mass Index 21.73 06/24/2024 9:26 AM DRUM WORKER documented in this encounter Discharge Instructions * Discharge Instructions* Richar Mahajan MD - 06/24/2024 12:57 PM DRUM WORKER Home. Continue home care. Follow up with [...] Negative Ketones Urine Negative Negative mg/dL Specific [place] Urine 1.009 1.003 - 1.035 Blood Urine [...] Status --------- ------ CBC with platelets and d...[[id number]] Abnormal Final result Please view results for these tests on the individual orders. WORKER * Attachments The following attachments cannot be [...] 05/01/2024 naloxone (NARCAN) 4 MG/0.1ML nasal spray [place] 1 spray (4 mg) into one nostril [...] extremities. Triage Assessment (Adult) Row Name 06/24/24 9693 Triage Assessment Airway WDL WDL Respiratory WDL Respiratory WDL WDL Skin Circulation/Temperature WDL Skin Circulation/Temperature WDL WDL Cardiac WDL Cardiac WDL WDL Peripheral/Neurovascular WDL Peripheral Neurovascular WDL WDL Cognitive/Neuro/Behavioral WDL Cognitive/Neuro/Behavioral WDL WDL WORKER * Richar Mahajan MD - 06/24/2024 9:16 AM CST Images from the original note were not included. [facility] ([facility]) 06/24/24 ED PROVIDER NOTE History [...] Procedures, & Data Records reviewed in [facility] as noted refer to HPI also [...] Negative Ketones Urine Negative Negative mg/dL Specific [place] Urine 1.009 1.003 - 1.035 Blood Urine [...] Status --------- ------ CBC with platelets and d...[[id number]] Abnormal Final result Please view results for [...] Bilirubin Urine Negative Ketones Urine Negative Specific [place] Urine 1.009 Blood Urine Negative pH Urine [...] [place], am serving as a trained medical lab assistant to document services personally performed by Richar Mahajan MD based on the provider's statements to me on June 24, 2024. This document has been checked and approved by the attending provider. I, Richar Mahajan MD, was physically present and have reviewed and verified the accuracy of thisnote documented by Thelma [place], medical lab assistant. Richar Mahajan MD [facility] 06/24/2024 This note was created at least in part by the use of [employer]yme voice dictation system. Inadvertent typographical errors may still exist. Richar Mahajan MD. Patient evaluated in the emergency department during the COVID-19 pandemic period. Careful attention to patients safety was addressed throughout the evaluation. Evaluation and treatment management was initiated with disposition made efficiently and appropriate as possible to minimize any risk of potential exposure to patient during this evaluation. Richar Mahajan MD 06/24/242108 WORKER documented in this encounter Plan of Treatment Upcoming Encounters Date Type Department Care Team (Late st Contact Info) Description 07/10/2024 11:30 AM CDT Oncology Visit [facility] [address] [place] [address] Case Samuel MD [address] [facility] 484, [address] [place], [place] [address] documented as of this encounter Goals Goal Patient Goal Type Associated Problems Recent Progress Patient-Stated? Author Pain Management General On track( 025 12:40 PM DRUM WORKER) Yes Juhi Benson, RN Note: Goal [...] REFLEX TO CULTURE STAT 06/24/2024 10:15 AM DRUM WORKER CBC WITH PLATELETS AND DIFFERENTIAL STAT 06/24/2024 10:11 AM DRUM WORKER CBC WITH PLATELETS & DIFFERENTIAL STAT 06/24/2024 10:11 AM DRUM WORKER RETICULOCYTE COUNT STAT 06/24/2024 10 :11 AM DRUM WORKER INR STAT 06/24/2024 10:11 AM DRUM WORKER PARTIAL THROMBOPLASTIN TIME STAT 06/24/2024 10:11 AM DRUM WORKER MAGNESIUM STAT 06/24/2024 10:11 AM DRUM WORKER HCG QUALITATIVE STAT 06/24/2024 10:11 AM DRUM WORKER COMPREHENSIVE METABOLIC PANEL STAT 06/24/2024 10:11 AM DRUM WORKER documented in this encounter Results * (ABNORMAL) UA with Microscopic reflex to Culture (06/24/2024 10:15 AM DRUM WORKER) Color Urine Light Yellow Colorless, Straw, Light Yellow, Yellow 06/24/2024 10:25 AM DRUM WORKER [facility] Appearance Urine Clear Clear 06/25/19 10:25 AM DRUM WORKER [facility] Glucose Urine Negative Negative mg/dL 06/24/2024 10:25 AM DRUM WORKER [facility] Bilirubin Urine Negative Negative 10:25 AM DRUM WORKER [facility] Ketones Urine Negative Negative mg/dL 06/24/2024 10:25 AM DRUM WORKER [facility] Specific [place] Urine 1.009 1.003 - 1.035 06/24/2024 10:25 AM DRUM WORKER [facility] Blood Urine Negative Negative 06/24/2024 10:25 AM DRUM WORKER [facility] pH Urine 7.5(H) 5.0 - 7.0 06/24/2024 10:25 AM DRUM WORKER [facility] Protein Albumin Urine Negative Negative mg/dL 06/24/2024 10:25 AM DRUM WORKER [facility] Urobilinogen Urine Normal Normal, 2.0 mg/dL 06/24/2024 10:25 AM DRUM WORKER [facility] Nitrite Urine Negative Negative 06/24/2024 10:25 AM DRUM WORKER [facility] Leukocyte Esterase Urine Negative Negative 06/24/2024 10:25 AM DRUM WORKER [facility] RBC Urine <1 <=2 /HPF 06/24/2024 10:25 AM DRUM WORKER [facility] WBC Urine <1 <=5 /HPF 06/24/2024 10:25 AM DRUM WORKER [facility] Squamous Epithelials Urine 11(H) <=1 /HPF 06/24/2024 10:25 AM DRUM WORKER [facility] Hyaline Casts Urine 1 <=2 /LPF 06/24/2024 10:25 AM DRUM WORKER [facility] Urine MID-STREAM URINE SPECIMEN / Unknown Non-blood Collection / Unknown 06/24/2024 10:15 AM DRUM WORKER 06/24/2024 10:20 AM DRUM WORKER Narrative [facility] - 06/24/2024 10:25 AM DRUM WORKER Urine Culture not indicated us Richar Mahaajn MD LAB - URINE ORDERABLES Liss l Result [facility] [address] [facility], [address] [place] [address] * (ABNORMAL) CBC with platelets and differential (06/24/2024 10:11 AM DRUM WORKER) WBC Count 7.8 4.0 - 11.0 10e3/uL 06/24/2024 10:28 AM DRUM WORKER [facility] RBC Count 2.49(L) 3.80 - 5.20 10e6/uL 06/24/2024 10:28 AM DRUM WORKER [facility] Hemoglobin 7.9(L) 11.7 - 15.7 g/dL 06/24/2024 10:28 AM DRUM WORKER [facility] Hematocrit 24.8(L) 35.0 - 47.0 % 06/24/2024 10:28 AM DRUM WORKER [facility] MCV 100 78 - 100 fL 06/24/2024 10:28 AM DRUM WORKER [facility] MCH 31.7 26.5 - 33.0 pg 06/24/2024 10:28 AM DRUM WORKER [facility] MCHC 31.9 31.5 - 36.5 g/dL 06/24/2024 10:28 AM DRUM WORKER [facility] RDW 19.0(H) 10.0 - 15.0 % 06/24/2024 10:28 AM DRUM WORKER [facility] Platelet Count 482(H) 150 - 450 10e3/uL 06/24/2024 10:28 AM DRUM WORKER [facility] % Neutrophils 61 % 06/24/2024 10:28 AM DRUM WORKER [facility] % Lymphocytes 26 % 06/24/2024 10:28 AM DRUM WORKER [facility] % Monocytes 9 % 06/24/2024 10:28 AM DRUM WORKER [facility] % Eosinophils 1 % 06/24/2024 10:28 AM DRUM WORKER [facility] % Basophils 2 % 06/24/2024 10:28 AM DRUM WORKER [facility] % Immature Granulocytes 1 % 06/24/2024 10:28 AM DRUM WORKER [facility] NRBCs per 100 WBC 5(H) <1 /100 025 10:28 AM DRUM WORKER [facility] Absolute Neutrophils 4.8 1.6 - 8.3 10e3/uL 06/24/2024 10:28 AM DRUM WORKER [facility] Absolute Lymphocytes 2.1 0.8 - 5.3 10e3/uL 06/24/2024 10:28 AM DRUM WORKER [facility] Absolute Monocytes 0.7 0.0 - 1.3 10e3/uL 06/24/2024 10:28 AM DRUM WORKER [facility] Absolute Eosinophils 0.1 0.0 - 0.7 10e3/uL 06/24/2024 10:28 AM DRUM WORKER [facility] Absolute Basophils 0.1 0.0 - 0.2 10e3/uL 06/24/2024 10:28 AM DRUM WORKER [facility] Absolute Immature Granulocytes 0.1 <=0.4 10e3/uL 06/24/2024 10:28 AM DRUM WORKER [facility] Absolute NRBCs 0.4 10e3/uL 06/24/2024 10:28 AM DRUM WORKER [facility] Blood BLOOD SPECIMEN / Unknown Venipuncture / Unknown 06/24/2024 10:11 AM DRUM WORKER 06/24/2024 10:22 AM DRUM WORKER us Richar Mahajan MD LAB - BLOOD ORDERABLES Liss l Result [facility] [address] [facility], [address] [place] [address], [facility] * (ABNORMAL) Reticulocyte count (06/24/2024 10:11 AM DRUM WORKER) [facility] % Reticulocyte 11.2(H) 0.5 - 2.0 % 06/24/2024 10:28 AM DRUM WORKER [facility] Absolute Reticulocyte 0.280(H) 0.025 - 0.095 10e6/uL 06/24/2024 10:28 AM DRUM WORKER [facility] Blood BLOOD SPECIMEN / Unknown Venipuncture / Unknown 06/24/2024 10:11 AM DRUM WORKER 06/24/2024 10:22 AM DRUM WORKER Richar Mahajan MD LAB - BLOOD ORDERABLES Liss l Result [facility] [address] [facility], [address] [id number] * HCG qualitative Blood (06/24/2024 10:11 AM DRUM WORKER) hCG Serum Qualitative Negative Negative JARET 06/24/2024 10:33 AM DRUM WORKER [facility] Comment:This test is for scr eening purposes. Results should be interpreted along with the clinical picture. Confirmation testing is available if warranted by ordering [id number], HCG Quantitative . Blood BLOOD SPECIMEN / Unknown Venipuncture / Unknown 06/24/2024 10:11 AM DRUM WORKER 06/24/2024 10:20 AM DRUM WORKER Richar Mahajan MD LAB - BLOOD ORDERABLES Liss l Result Performing Organization Address [facility] Co de Phone Number [facility] [address] [facility], [address] [phone] [place] [address] * Magnesium (06/24/2024 10:11 AM DRUM WORKER) Pathologist [facility] Magnesium 2.1 1.7 - 2.3 mg/dL 06/24/2024 10:51 AM DRUM WORKER [facility] Blood BLOOD SPECIMEN / Unknown Venipuncture / Unknown 06/24/2024 10:11 AM DRUM WORKER 06/24/2024 10:21 AM DRUM WORKER Richar Mahajan MD LAB - BLOOD ORDERABLES Liss l Result [facility] [address] [facility], [address] [place] [address], [facility] * (ABNORMAL) Comprehensive metabolic panel (06/24/2024 10:11 AM DRUM WORKER) Sodium 138 135 - 145 mmol/L 06/24/2024 10:51 AM DRUM WORKER [facility] Potassium 4.3 3.4 - 5.3 mmol/L 06/24/2024 10:51 AM DRUM WORKER [facility] Carbon Dioxide (CO2) 20(L) 22 - 29 mmol/L 06/24/2024 10:51 AM DRUM WORKER [facility] Anion Gap 10 7 - 15 mmol/L 06/24/2024 10:51 AM DRUM WORKER [facility] Urea Nitrogen 9.9 6.0 - 20.0 mg/dL 06/24/2024 10:51 AM DRUM WORKER [facility] Creatinine 0.62 0.51 - 0.95 mg/dL 06/24/2024 10:51 AM DRUM WORKER [facility] GFR Estimate >90 >60 mL/min/1.7 3m2 06/24/2024 10:51 AM DRUM WORKER [facility] Comment:eGFR calculated us2020 CKD-EPI equation. Calcium 8.7(L) 8.8 - 10.4 mg/dL 06/24/2024 10:51 AM DRUM WORKER [facility] Chloride 108(H) 98 - 107 mmol/L 06/24/2024 10:51 AM DRUM WORKER [facility] Glucose 98 70 - 99 mg/dL 06/24/2024 10:51 AM DRUM WORKER [facility] Alkaline Phosphatase 119 40 - 150 U/L 06/24/2024 10:51 AM DRUM WORKER [facility] AST 57(H) 0 - 45 U/L 06/24/2024 10:51 AM DRUM WORKER [facility] ALT 53(H) 0 - 50 U/L 06/24/2024 10:51 AM DRUM WORKER [facility] Protein Total 7.4 6.4 - 8.3 g/dL 06/24/2024 10:51 AM DRUM WORKER [facility] Albumin 4.0 3.5 - 5.2 g/dL 06/24/2024 10:51 AM DRUM WORKER [facility] Bilirubin Total 1.1 <=1.2 mg/dL 06/24/2024 10:51 AM DRUM WORKER [facility] Blood BLOOD SPECIMEN / Unknown Venipuncture / Unknown 06/24/2024 10:11 AM DRUM WORKER 06/24/2024 10:21 AM DRUM WORKER us Richar Mahajan MD LAB - BLOOD ORDERABLES Liss l Result LABORATORY [facility] [address] [facility], [address] * (ABNORMAL) INR (06/24/2024 10:11 AM DRUM WORKER) INR 1.45(H) 0.85 - 1.15 06/24/2024 10:54 AM DRUM WORKER [facility] Blood BLOOD SPECIMEN / Unknown Venipuncture / Unknown 06/24/2024 10:11 AM DRUM WORKER 06/24/2024 10:21 AM DRUM WORKER us Richar Mahajan MD LAB - BLOOD ORDERABLES Liss l Result Performing Organization Address City/[facility]/ZIP Co de Phone Number [facility] [address] [facility], [address] * Partial thromboplastin time (06/24/2024 10:11 AM DRUM WORKER) aPTT 32 22 - 38 Seconds 06/24/2024 10:55 AM DRUM WORKER [facility] Blood BLOOD SPECIMEN / Unknown Venipuncture / Unknown 06/24/2024 10:11 AM DRUM WORKER 06/24/2024 10:21 AM DRUM WORKER us Richar Mahajan MD LAB - BLOOD ORDERABLES Liss l Result [facility]ATORY [facility] [address] [facility] documented in this encounter Visit Diagnoses Diagnosis Sickle cell disease with crisis (H) Hb-SS disease with crisis documented in this encounter Administered Medications Inactive Administered Medications - up to 3 most recent administrations Medication Order MAR Action Action Date Dose Rate Site diphenhydrAMINE (BENADRYL) capsule 50 mg 50 mg, Oral, ONCE, On 06/24/24 at 0935, For 1 dose $Given 06/24/2024 10:20 AM DRUM WORKER 50 mg hydromorphone (DILAUDID) injection 2 mg 2 mg, Intravenous, EVERY 1 HOUR PRN, severe pain, Starting on 06/24/24 at 0933, For 3 doses $Given 06/24/2024 12:41 PM DRUM WORKER 2 mg $Given 06/24/2024 11:21 AM DRUM WORKER 2 mg $Given 06/24/2024 10:19 AM DRUM WORKER 2 mg lactated ringers BOLUS 1,000 mL Intravenous, 1,000 mL, ONCE, at 500 mL/hr, Administer over 2 Hours, On 06/24/24 at 0935, For 1 dose $New Bag 06/24/2024 10:20 AM DRUM WORKER 1,000 mLs 500 mL/hr lidocaine (LMX4) cream [...] For 1 dose $Given 06/24/2024 10:19 AM DRUM WORKER 8 mg sodium chloride (PF) 0.9% PF flush 3 mL 3 mL, Intracatheter, EVERY 8 HOURS, First dose on 06/24/24 at 0935, to lock peripheral IV dormant line $Given 06/24/2024 10:14 AM DRUM WORKER 3 mLs sodium chloride (PF) 0.9% PF flush 3 mL 3 mL, Intracatheter, EVERY 1 MIN PRN, line flush, other, to ensure patency or to lock dormant line, Starting on 06/24/24 at 0930 documented in this encounter Active and Recently Administered Medications Times are shown in DRUM WORKER. Scheduled Medication Order 06/22/2024 06/23/2024 06/24/2024 diphenhydrAMINE [...] 0930 documented in this encounter Care Teams Rigger Relationship Specialty Start Date End Date Veronica Joseph MD [address] [place] [address] PCP - General Family Medicine 06/18/24 Mor Ramsey Medical Student 04/03/24 Case Samuel MD [address] [place] [address] 484, [address] [place] [address] Assigned Pediatric Specialist Provider 05/18/24 Juhi Benson, SOFIA Specialty Basting Cleaner Hematology & Oncology 05/29/24 documented as of this encounter
--- OUTSIDE RECORDS SUMMARY | 2024-06-30 23:58 | XMS_ITS | Clinical Summary ---
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 Genotype: SS Acute Pain Crisis [...] Type Department Care Team Description 06/29/[address] [phone] Case Samuel MD Refill Request 06/26/2024 1:51 PM CLINICAL COORDINATOR - 06/29/2024 11:11 AM CLINICAL COORDINATOR Hospital Encounter [facility] Emergency Department [address] [place] [phone] Jayden Adhikari MD Pal, Suman, MD Diehl, Matthew, MD Acute pulmonary embolism without acute cor pulmonale, unspecified pulmonary embolism type (H); Sickle cell pain crisis (H) Discharge Disposition: Home or Self Care 06/26/2024 Travel 06/25/2024 9:50 PM CLINICAL COORDINATOR - 06/26/2024 1:11 AM [facility] Emergency [facility] Emergency Department [address] [place] [phone] Polly Naylor MD Tschohl, Melissa Ann, MD Sickle cell disease with crisis (H); Chest pain, unspecified type Discharge Disposition: Home or Self Care 06/25/2024 Travel 06/24/2024 9:28 AM CLINICAL COORDINATOR - 06/24/2024 1:05 PM CLINICAL COORDINATOR Emergency [facility] Emergency Department [address] [place] [address] Richar Mahajan MD Sickle cell disease with crisis (H) Discharge Disposition: Home or Self Care 06/24/2024 Travel 06/23/2024 6:03 PM CLINICAL COORDINATOR - 06/23/2024 9:47 PM CLINICAL COORDINATOR Emergency [facility] Emergency Department [address] [place] [phone] Dayna Crane MD Sickle cell disease with crisis (H) Discharge Disposition: Home or Self Care 06/23/2024 Travel 06/22/2024 5:23 PM CLINICAL COORDINATOR - 06/22/2024 10:02 PM CLINICAL COORDINATOR Emergency [facility] Emergency Department [address] [place] [phone] Lynne Varner MD Sickle cell anemia with crisis (H) Discharge Disposition: Home or Self Care 06/22/2024 Travel 06/16/2024 4:46 PM CLINICAL COORDINATOR - 06/20/2024 11:00 AM CLINICAL COORDINATOR Hospital Encounter [facility] 7C Med Surg [address] [place] [address] Abimael Schofield MD Pal, Suman, MD Duffy, Briar, MD Sickle cell pain crisis (H) Discharge Disposition: Home or Self Care 06/16/2024 Travel 06/15/2024 Refill [facility] [address] [phone] Case Samuel MD Refill Request 06/12/2024 6:38 PM CLINICAL COORDINATOR - 06/15/2024 10:48 AM CLINICAL COORDINATOR Hospital Encounter [facility] Emergency Department [address] [place] [phone] Abdelrahman Goddard MD Beacom, Evan, DO Duffy, Briar, MD 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); Acute chest pain; Sickle cell pain crisis (H); Pneumonia of right lower lobe due to infectious organism Discharge Disposition: Home or Self Care 06/12/2024 Travel 06/11/2024 9:02 PM CLINICAL COORDINATOR - 06/12/2024 1:57 AM CLINICAL COORDINATOR Emergency [facility] Emergency Room [address] [place] [phone] Iliana Weber MD Sickle cell pain crisis (H) Discharge Disposition: Home or Self Care 06/11/2024 Travel 06/09/2024 11:30 AM CLINICAL COORDINATOR Infusion Therapy Visit [facility] [id number] [place] [address] [place] [phone] Case Samuel MD Sickle cell pain crisis (H) (Primary Dx) 06/09/2024 Travel 06/07/2024 1:30 PM CLINICAL COORDINATOR Infusion Therapy Visit [facility] [address] [phone] Case Samuel MD Fever (Primary Dx); Sickle cell pain crisis (H) 06/07/2024 10:00 AM CLINICAL COORDINATOR - 06/07/2024 10:45 AM CLINICAL COORDINATOR Emergency [facility] Emergency Room [address] [place] [phone] Bernabe Farley MD Chest pain, unspecified type; Fever, unspecified fever cause; Left against medical advice Discharge Disposition: Home or Self Care 06/07/2024 Travel 06/06/2024 9:41 AM CLINICAL COORDINATOR - 06/06/2024 1:29 PM CLINICAL COORDINATOR Emergency [facility] Emergency Room [address] [place] [phone] Marilia Summers MD Sickle cell pain crisis (H) Discharge Disposition: Home or Self Care 06/05/2024 11:41 AM CLINICAL COORDINATOR - 06/05/2024 3:28 PM CLINICAL COORDINATOR Emergency [facility] Emergency Room [address] [place] [phone] Stiven Madsen MD Palm, Steven J, MD Sickle cell pain crisis (H) Discharge Disposition: Home or Self Care 06/05/2024 Travel 06/05/2024 [facility] Refill [facility] [address] [phone] Case Samuel MD Refill Request 06/03/2024 3:22 PM CLINICAL COORDINATOR - 06/03/2024 5:30 PM CLINICAL COORDINATOR Emergency [facility] Emergency Room [address] [place] [phone] Jennifer Bell MD Sickle cell pain crisis (H) Discharge Disposition: Home or Self Care 06/03/2024 Travel 06/01/2024 11:41 PM CLINICAL COORDINATOR - 06/02/2024 2:35 AM CLINICAL COORDINATOR Emergency [facility] Emergency Room [address] [place] [phone] Noel Pinzon MD Sickle cell pain crisis (H) Discharge Disposition: Home or Self Care 06/01/2024 Travel 05/31/2024 9:56 PM CLINICAL COORDINATOR - 06/01/2024 12:46 AM CLINICAL COORDINATOR Emergency [facility] Emergency Room [address] [place] [phone] Craley Riggins MD Sickle cell pain crisis (H) Discharge Disposition: Home or Self Care 05/31/2024 Travel 05/30/2024 8:00 AM CLINICAL COORDINATOR Infusion Therapy Visit [facility] [address] [phone] Case Samuel MD 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); History of transfusion; Sickle cell pain crisis (H) 05/29/2024 11:30 AM CLINICAL COORDINATOR Oncology Visit [facility] [address] [phone] Case Samuel MD Severe episode of recurrent major depressive disorder, 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); History of transfusion; Sickle cell pain crisis (H); 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) 05/29/2024 [facility] [address] [place] [phone] Juhi Benson RN Sickle cell pain crisis (H) (Primary Dx); 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) 05/29/2024 Travel 05/28/2024 11:56 PM CLINICAL COORDINATOR - 05/29/2024 3:54 AM [facility] Emergency Room [address] [place] [phone] Lenin Smith MD Sickle cell disease with crisis (H) Discharge Disposition: Home or Self Care 05/28/2024 Travel 05/27/2024 11:58 AM [facility] - 05/27/2024 6:07 PM [facility] Emergency Room [address] [place] [phone] Blas Mcclellan MD Ohl, Marly Leija, DO Sickle cell disease with crisis (H) Discharge Disposition: Home or Self Care 05/27/2024 Travel 05/25/2024 10:53 AM CLINICAL COORDINATOR - 05/25/2024 4:00 PM [facility] Interventional Radiology [address] [place] [phone] Jaswinder Cooper MD 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) Discharge Disposition: Home or Self Care 05/23/2024 9:03 PM CLINICAL COORDINATOR - 05/23/2024 11:37 PM [facility] Emergency Room [address] [place] [phone] Marilia Summers MD Sickle cell pain crisis (H); Leukocytosis, unspecified type; Left-sided chest wall pain Discharge Disposition: Home or Self Care 05/23/2024 Travel 05/22/2024 3:27 PM CLINICAL COORDINATOR - 05/22/2024 6:55 PM [facility] Emergency Room [address] [place] [phone] Bernabe Farley MD Sickle cell pain crisis (H) Discharge Disposition: Home or Self Care 05/22/2024 [facility] Refill [facility] [address] [place] [phone] Case Samuel MD Refill Request 05/22/2024 Travel 05/22/2024 MyC Medical Advice [facility] Interventional Radiology [address] [place] [phone] Yadi Mahan RN 05/20/2024 7:30 AM CLINICAL COORDINATOR - 05/20/2024 11:15 AM [facility] Emergency [facility] Emergency Room [address] [place] [phone] Stiven Madsen MD Sickle cell pain crisis (H) Discharge Disposition: Home or Self Care 05/20/2024 Travel 05/19/2024 2:10 AM CLINICAL COORDINATOR - 05/19/2024 6:06 AM CLINICAL COORDINATOR Emergency [facility] Emergency Room [address] [place] [phone] Marilia Summers MD Sickle cell disease with crisis (H) Discharge Disposition: Home or Self Care 05/19/2024 Travel 05/16/2024 9:41 PM CLINICAL COORDINATOR - 05/17/2024 12:53 AM CLINICAL COORDINATOR Emergency [facility] Emergency Room [address] [place] [phone] Guille Davis DO Sickle cell pain crisis (H) Discharge Disposition: Home or Self Care 05/16/2024 Travel 05/14/2024 10:07 PM CLINICAL COORDINATOR - 05/15/2024 12:14 AM [facility] Emergency [facility] Emergency Room [address] [place] [phone] Marguerite Ponce PA-C Sickle cell pain crisis (H) Discharge Disposition: Home or Self Care 05/14/2024 Travel 05/13/2024 3:56 PM CLINICAL COORDINATOR - 05/13/2024 7:56 PM CLINICAL COORDINATOR Emergency [facility] Emergency Room [address] [place] [phone] Shaheen Unger MD Sickle cell pain crisis (H) Discharge Disposition: Home or Self Care 05/13/2024 Travel 05/08/2024 3:10 PM CLINICAL COORDINATOR - 05/08/2024 7:54 PM CLINICAL COORDINATOR Emergency [facility] Emergency Room [address] [place] [phone] Polly Alcaraz MD Sickle cell pain crisis (H) Discharge Disposition: Home or Self Care 05/08/2024 Travel 05/08/2024 MyC Refill [facility] [address] [place] [phone] Case Samuel MD Refill Request 05/06/2024 6:34 PM CLINICAL COORDINATOR - 05/06/2024 10:33 PM CLINICAL COORDINATOR Emergency [facility] Emergency Room [address] [place] [phone] Noel Pinzon MD Sickle cell pain crisis (H) Discharge Disposition: Home or Self Care 05/06/2024 Travel 05/05/2024 11:10 AM CLINICAL COORDINATOR - 05/05/2024 2:25 PM CLINICAL COORDINATOR Emergency [facility] Emergency Room [address] [place] [phone] Star Gifford MD Sickle cell pain crisis (H) Discharge Disposition: Home or Self Care 05/05/2024 Travel 05/02/2024 8:23 AM CLINICAL COORDINATOR - 05/02/2024 8:54 AM [facility] Emergency [facility] Emergency Department [address] [place] [phone] Andres Tejada MD Discharge Disposition: Left Without Being Seen 05/02/2024 [facility] [address] [facility] [address] [place] [phone] No Ref-Primary, Physician Call to schedule (Ed follow up) 05/02/2024 Travel 05/01/2024 11:00 AM CLINICAL COORDINATOR Oncology Visit [facility] [address] [phone] Case Samuel MD History of transfusion (Primary Dx); 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); Gallstones; Avascular necrosis of bone of left hip (H); 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, with sickle cell retinopathy, unspecified laterality, unspecified whether proliferative (H); Sickle cell pain crisis (H) 05/01/2024 Orders Only [facility] [address] [place] [phone] Juhi Benson RN 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) 05/01/2024 Travel 04/28/2024 12:41 AM CLINICAL COORDINATOR - 04/28/2024 3:59 AM CLINICAL COORDINATOR Emergency [facility] Emergency Room [address] [place] [phone] Sandy Joya MD Sickle cell pain crisis (H) Discharge Disposition: Home or Self Care 04/28/2024 Travel 04/26/2024 11:53 PM CLINICAL COORDINATOR - 04/27/2024 2:14 AM CLINICAL COORDINATOR Emergency [facility] Emergency Room [address] [place] [phone] Sandy Joya MD Sickle cell pain crisis (H) Discharge Disposition: Home or Self Care 04/26/2024 Travel 04/19/2024 1:48 AM CLINICAL COORDINATOR - 04/19/2024 4:28 AM CLINICAL COORDINATOR Emergency [facility] Emergency Room [address] [place] [phone] Juan Rodriguez MD Sickle cell pain crisis (H); Left hip pain; Nondisplaced articular fracture of head of left femur, initial encounter for closed fracture (H) Discharge Disposition: Home or Self Care 04/19/2024 Travel 04/08/2024 9:38 PM CLINICAL COORDINATOR - 04/10/2024 10:16 AM CLINICAL COORDINATOR Hospital Encounter [facility] [address] [place] [phone] Iliana Weber MD Huynh, Ryan K, MD Raddawi, Kenan, MD Sickle cell pain crisis (H) Discharge Disposition: Home or Self Care 04/08/2024 Travel 04/05/2024 11:32 PM CLINICAL COORDINATOR - 04/06/2024 3:04 AM CLINICAL COORDINATOR Emergency [facility] Emergency Room [address] [place] [phone] Guille Davis DO Sickle cell pain crisis [...] file Legal Sex Female 8:25 AM CLINICAL COORDINATOR Gender Identity Not on file Sexual Orientation Not on file Last Filed Vital Signs Vital Sign Reading Time Taken Comments Blood Pressure 97/51 06/29/2024 9:46 AM CLINICAL COORDINATOR Pulse 62 06/29/2024 9:46 AM CLINICAL COORDINATOR Temperature 36.8 C (98.2 F) 06/29/2024 9:46 AM CLINICAL COORDINATOR Respiratory Rate 18 06/29/2024 9:46 AM CLINICAL COORDINATOR Oxygen Saturation 95% 06/29/2024 9:46 AM CLINICAL COORDINATOR Inhaled Oxygen Concentration - - Weight 51 kg (112 lb 6.4 oz) 06/25/2024 9:46 PM CLINICAL COORDINATOR Height 154.9 cm (5' 1) 06/24/2024 9:26 AM CLINICAL COORDINATOR Body Mass Index 21.24 06/24/2024 9:26 AM CLINICAL COORDINATOR Plan of Treatment Upcoming Encounters Date Type Department Care Team (Late st Contact Info) Description 07/10/2024 11:30 AM CDT Oncology Visit [facility] [address] [place] [phone] Case Samuel MD [address] [place] [address], [address] [place] [address] Health Maintenance Due Date Last Done Comments [...] General On track( 025 12:40 PM CLINICAL COORDINATOR) Yes Juhi Benson, RN Note: Goal [...] medication remaining. Medical Devices Implanted Type Area Interventional Physician Device Identifier Shelf Expiration Date Model / Serial / Lot Bard 9.6 Powerflow Apheresis Iv Port-05/25/2024 Implanted:Qty: 1 on 05/25/2024 by Myron Michel MD Port Right: Chest Wall BARD 08/23/2024 [id number] / / [id number] Description:Right chest Wall Apheresis Port 9.6FR (Power) 6frt Smartport-05/25 Implanted:Qty: 1 on 05/25/2024 by Myron Michel MD Port Left: Chest Wall [employer] 09/23/2026 [id number] / / [id number] Description:6FR SL SmartPort (Power - 300psi max) Procedures Procedure Name Priority Date/Time Associated Diagnosis Comments CBC WITH PLATELETS & DIFFERENTIAL STAT 06/29/2024 6:05 AM CLINICAL COORDINATOR EXTRA PURPLE TOP TUBE STAT 06/29/2024 6:05 AM CLINICAL COORDINATOR EXTRA TUBE STAT 06/29/2024 6:05 AM CLINICAL COORDINATOR CBC WITH PLATELETS AND DIFFERENTIAL STAT 06/29/2024 6:05 AM CLINICAL COORDINATOR COMPREHENSIVE METABOLIC PANEL STAT 06/29/2024 6:04 AM CLINICAL COORDINATOR CBC WITH PLATELETS & DIFFERENTIAL STAT 06/28/2024 6:06 AM CLINICAL COORDINATOR BILIRUBIN DIRECT Add-On 06/28/2024 6:06 AM CLINICAL COORDINATOR RBC AND PLATELET MORPHOLOGY STAT 06/28/2024 6:06 AM CLINICAL COORDINATOR CBC WITH PLATELETS AND DIFFERENTIAL STAT 06/28/2024 6:06 AM CLINICAL COORDINATOR RETICULOCYTE COUNT STAT 06/28/2024 6: 06 AM CLINICAL COORDINATOR LACTATE DEHYDROGENASE STAT 06/28/2024 6:06 AM CLINICAL COORDINATOR COMPREHENSIVE METABOLIC PANEL STAT 06/28/2024 6:06 AM CLINICAL COORDINATOR HEPARIN UNFRACTIONATED ANTI XA LEVEL STAT 06/28/2024 1:57 AM CLINICAL COORDINATOR HEPARIN UNFRACTIONATED ANTI XA LEVEL STAT 06/27/2024 7:14 PM CLINICAL COORDINATOR EXTRA GREEN TOP (LITHIUM HEPARIN) TUBE STAT 06/27/2024 5:55 PM CLINICAL COORDINATOR EXTRA TUBE STAT 06/27/2024 5:55 PM CLINICAL COORDINATOR ECHO COMPLETE Routine 06/27/2024 2:33 PM CLINICAL COORDINATOR HEPARIN UNFRACTIONATED ANTI XA LEVEL STAT 06/27/2024 12:39 PM CLINICAL COORDINATOR US LOWER EXTREMITY VENOUS DUPLEX BILATERAL STAT 06/27/2024 11:21 AM CLINICAL COORDINATOR INFLUENZA A/B, RSV AND SARS-COV2 PCR STAT 06/27/2024 8:43 AM CLINICAL COORDINATOR ROUTINE UA WITH MICROSCOPIC REFLEX TO CULTURE STAT 06/27/2024 8:12 AM CLINICAL COORDINATOR ABO/RH TYPE AND SCREEN Add-On 5:57 AM CLINICAL COORDINATOR CBC WITH PLATELETS & DIFFERENTIAL Add-On 06/27/2024 5:57 AM CLINICAL COORDINATOR TYPE AND SCREEN, ADULT Routine 5:57 AM CLINICAL COORDINATOR RBC AND PLATELET MORPHOLOGY STAT 06/27/2024 5:57 AM CLINICAL COORDINATOR CBC WITH PLATELETS AND DIFFERENTIAL Add-On 06/27/2024 5:57 AM CLINICAL COORDINATOR RETICULOCYTE COUNT Add-On 06/27/2024 5: 57 AM CLINICAL COORDINATOR HEPATIC FUNCTION PANEL Add-On 5:57 AM CLINICAL COORDINATOR CBC WITH PLATELETS STAT 06/27/2024 5: 57 AM CLINICAL COORDINATOR BASIC METABOLIC PANEL STAT 06/27/2024 5:57 AM CLINICAL COORDINATOR HEPARIN UNFRACTIONATED ANTI XA LEVEL STAT 06/27/2024 5:56 AM CLINICAL COORDINATOR HEPARIN UNFRACTIONATED ANTI XA LEVEL STAT 06/26/2024 10:46 PM CLINICAL COORDINATOR BLOOD CULTURE STAT 06/26/2024 6:46 PM CLINICAL COORDINATOR BLOOD CULTURE STAT 06/26/2024 6:46 PM CLINICAL COORDINATOR ERYTHROCYTE SEDIMENTATION RATE AUTO STAT 06/26/2024 6:46 PM CLINICAL COORDINATOR EKG 12-LEAD, TRACING ONLY STAT 06/26/2024 5:[address] CHEST PULMONARY EMBOLISM W CONTRAST STAT 06/26/2024 4:15 PM CLINICAL COORDINATOR XR CHEST 2 VIEWS STAT 06/26/2024 3:13 PM CLINICAL COORDINATOR ABO/RH TYPE AND SCREEN STAT 2:42 PM CLINICAL COORDINATOR CBC WITH PLATELETS & DIFFERENTIAL STAT 06/26/2024 2:42 PM CLINICAL COORDINATOR TYPE AND SCREEN, ADULT STAT 2:42 PM CLINICAL COORDINATOR PROCALCITONIN STAT 06/26/2024 2:42 PM CLINICAL COORDINATOR CRP INFLAMMATION Add-On 06/26/2024 2:42 PM CLINICAL COORDINATOR CBC WITH PLATELETS AND DIFFERENTIAL STAT 06/26/2024 2:42 PM CLINICAL COORDINATOR TROPONIN T, HIGH SENSITIVITY STAT 06/26/2024 2:42 PM CLINICAL COORDINATOR D DIMER QUANTITATIVE STAT 06/26/2024 2:42 PM CLINICAL COORDINATOR HCG QUALITATIVE STAT 06/26/2024 2:42 PM CLINICAL COORDINATOR BASIC METABOLIC PANEL STAT 06/26/2024 2:42 PM CLINICAL COORDINATOR XR CHEST 2 VIEWS STAT 06/25/2024 10:35 PM CLINICAL COORDINATOR EKG 12-LEAD, TRACING ONLY STAT 06/25/2024 10:19 PM CLINICAL COORDINATOR ROUTINE UA WITH MICROSCOPIC REFLEX TO CULTURE STAT 06/25/2024 10:16 PM CLINICAL COORDINATOR CBC WITH PLATELETS & DIFFERENTIAL STAT 06/25/2024 10:15 PM CLINICAL COORDINATOR CBC WITH PLATELETS AND DIFFERENTIAL STAT 06/25/2024 10:15 PM CLINICAL COORDINATOR TROPONIN T, HIGH SENSITIVITY STAT 06/25/2024 10:15 PM CLINICAL COORDINATOR BASIC METABOLIC PANEL STAT 06/25/2024 10:15 PM CLINICAL COORDINATOR ROUTINE UA WITH MICROSCOPIC REFLEX TO CULTURE STAT 06/24/2024 10:15 AM CLINICAL COORDINATOR CBC WITH PLATELETS & DIFFERENTIAL STAT 06/24/2024 10:11 AM CLINICAL COORDINATOR CBC WITH PLATELETS AND DIFFERENTIAL STAT 06/24/2024 10:11 AM CLINICAL COORDINATOR RETICULOCYTE COUNT STAT 06/24/2024 10:11 AM CLINICAL COORDINATOR HCG QUALITATIVE STAT 06/24/2024 10:11 AM CLINICAL COORDINATOR MAGNESIUM STAT 06/24/2024 10:11 AM CLINICAL COORDINATOR COMPREHENSIVE METABOLIC PANEL STAT 06/24/2024 10:11 AM CLINICAL COORDINATOR INR STAT 06/24/2024 10:11 AM CLINICAL COORDINATOR PARTIAL THROMBOPLASTIN TIME STAT 06/24/2024 10:11 AM CLINICAL COORDINATOR CBC WITH PLATELETS & DIFFERENTIAL STAT 06/23/2024 6:22 PM CLINICAL COORDINATOR DIFFERENTIAL STAT 06/23/2024 6:22 PM CLINICAL COORDINATOR CBC WITH PLATELETS AND DIFFERENTIAL STAT 06/23/2024 6:22 PM CLINICAL COORDINATOR HCG QUALITATIVE STAT 06/23/2024 6:22 PM CLINICAL COORDINATOR COMPREHENSIVE METABOLIC PANEL STAT 06/23/2024 6:22 PM CLINICAL COORDINATOR CBC WITH PLATELETS & DIFFERENTIAL STAT 06/22/2024 7:10 PM CLINICAL COORDINATOR CBC WITH PLATELETS AND DIFFERENTIAL STAT 06/22/2024 7:10 PM CLINICAL COORDINATOR RETICULOCYTE COUNT STAT 06/22/2024 7: 10 PM CLINICAL COORDINATOR HCG QUALITATIVE STAT 06/22/2024 7:10 PM CLINICAL COORDINATOR COMPREHENSIVE METABOLIC PANEL STAT 06/22/2024 7:10 PM CLINICAL COORDINATOR CBC WITH PLATELETS & DIFFERENTIAL STAT 06/20/2024 5:48 AM CLINICAL COORDINATOR CBC WITH PLATELETS AND DIFFERENTIAL STAT 06/20/2024 5:48 AM CLINICAL COORDINATOR RETICULOCYTE COUNT Routine 06/20/2024 5: 48 AM CLINICAL COORDINATOR COMPREHENSIVE METABOLIC PANEL Routine 06/20/2024 5:48 AM CLINICAL COORDINATOR LACTATE DEHYDROGENASE Routine 06/20/2024 5:48 AM CLINICAL COORDINATOR CBC WITH PLATELETS & DIFFERENTIAL STAT 06/19/2024 9:30 AM CLINICAL COORDINATOR RBC AND PLATELET MORPHOLOGY STAT 06/19/2024 9:30 AM CLINICAL COORDINATOR CBC WITH PLATELETS AND DIFFERENTIAL STAT 06/19/2024 9:30 AM CLINICAL COORDINATOR RETICULOCYTE COUNT STAT 06/19/2024 9: 30 AM CLINICAL COORDINATOR COMPREHENSIVE METABOLIC PANEL STAT 06/19/2024 9:30 AM CLINICAL COORDINATOR LACTATE DEHYDROGENASE STAT 06/19/2024 9:30 AM CLINICAL COORDINATOR PLATELET COUNT STAT 06/19/2024 12:17 AM CLINICAL COORDINATOR CREATININE STAT 06/19/2024 12:17 AM CLINICAL COORDINATOR CBC WITH PLATELETS & DIFFERENTIAL STAT 06/18/2024 8:24 AM CLINICAL COORDINATOR DIFFERENTIAL STAT 06/18/2024 8:24 AM CLINICAL COORDINATOR CBC WITH PLATELETS AND DIFFERENTIAL STAT 06/18/2024 8:24 AM CLINICAL COORDINATOR RETICULOCYTE COUNT STAT 06/18/2024 8: 24 AM CLINICAL COORDINATOR COMPREHENSIVE METABOLIC PANEL STAT 06/18/2024 8:24 AM CLINICAL COORDINATOR LACTATE DEHYDROGENASE STAT 06/18/2024 8:24 AM CLINICAL COORDINATOR ROUTINE UA WITH MICROSCOPIC REFLEX TO CULTURE STAT 06/17/2024 1:11 PM CLINICAL COORDINATOR TRANSFUSE RED BLOOD CELLS (UNIT) STAT 06/17/2024 10:26 AM CLINICAL COORDINATOR PREPARE RED BLOOD CELLS (UNIT) STAT 06/17/2024 9:12 AM CLINICAL COORDINATOR TRANSFERRIN Add-On 06/17/2024 6:16 AM CLINICAL COORDINATOR IRON AND IRON BINDING CAPACITY Add-On 06/17/2024 6:16 AM CLINICAL COORDINATOR CBC WITH PLATELETS STAT 06/17/2024 6: 16 AM CLINICAL COORDINATOR BASIC METABOLIC PANEL STAT 06/17/2024 6:16 AM CLINICAL COORDINATOR TROPONIN T, HIGH SENSITIVITY STAT 06/16/2024 9:33 PM CLINICAL COORDINATOR XR CHEST 2 VIEWS STAT 06/16/2024 6:09 PM CLINICAL COORDINATOR ABO/RH TYPE AND SCREEN STAT 5:37 PM CLINICAL COORDINATOR CBC WITH PLATELETS & DIFFERENTIAL STAT 06/16/2024 5:37 PM CLINICAL COORDINATOR BLOOD CULTURE STAT 06/16/2024 5:37 PM CLINICAL COORDINATOR TYPE AND SCREEN, ADULT STAT 5:37 PM CLINICAL COORDINATOR RBC AND PLATELET MORPHOLOGY STAT 06/16/2024 5:37 PM CLINICAL COORDINATOR CBC WITH PLATELETS AND DIFFERENTIAL STAT 06/16/2024 5:37 PM CLINICAL COORDINATOR PROLACTIN STAT 06/16/2024 5:37 PM CLINICAL COORDINATOR TROPONIN T, HIGH SENSITIVITY STAT 06/16/2024 5:37 PM CLINICAL COORDINATOR COMPREHENSIVE METABOLIC PANEL STAT 06/16/2024 5:37 PM CLINICAL COORDINATOR EKG 12-LEAD, TRACING ONLY STAT 06/16/2024 4:55 PM CLINICAL COORDINATOR CBC WITH PLATELETS & DIFFERENTIAL STAT 06/15/2024 6:09 AM CLINICAL COORDINATOR CBC WITH PLATELETS AND DIFFERENTIAL STAT 06/15/2024 6:09 AM CLINICAL COORDINATOR BASIC METABOLIC PANEL STAT 06/15/2024 6:09 AM CLINICAL COORDINATOR XR CHEST PORT 1 VIEW STAT 06/14/2024 8:46 AM CLINICAL COORDINATOR CBC WITH PLATELETS STAT 06/14/2024 7: 08 AM CLINICAL COORDINATOR BASIC METABOLIC PANEL STAT 06/14/2024 7:08 AM CLINICAL COORDINATOR CBC WITH PLATELETS STAT 06/13/2024 6: 32 PM CLINICAL COORDINATOR CBC WITH PLATELETS & DIFFERENTIAL STAT 06/13/2024 6:00 AM CLINICAL COORDINATOR RBC AND PLATELET MORPHOLOGY STAT 06/13/2024 6:00 AM CLINICAL COORDINATOR CBC WITH PLATELETS AND DIFFERENTIAL STAT 06/13/2024 6:00 AM CLINICAL COORDINATOR BASIC METABOLIC PANEL STAT 06/13/2024 5:59 AM CLINICAL COORDINATOR RESPIRATORY PANEL PCR STAT 06/12/2024 9:34 PM CLINICAL COORDINATOR BLOOD CULTURE STAT 06/12/2024 8:46 PM CLINICAL COORDINATOR BLOOD CULTURE STAT 06/12/2024 8:46 PM CLINICAL COORDINATOR XR CHEST 2 VIEWS STAT 06/12/2024 7:38 PM CLINICAL COORDINATOR ABO/RH TYPE AND SCREEN Add-On 7:17 PM CLINICAL COORDINATOR CBC WITH PLATELETS & DIFFERENTIAL STAT 06/12/2024 7:17 PM CLINICAL COORDINATOR TYPE AND SCREEN, ADULT Routine 7:17 PM CLINICAL COORDINATOR RBC AND PLATELET MORPHOLOGY STAT 06/12/2024 7:17 PM CLINICAL COORDINATOR CBC WITH PLATELETS AND DIFFERENTIAL STAT 06/12/2024 7:17 PM CLINICAL COORDINATOR BLOOD GAS VENOUS STAT 06/12/2024 7:17 PM CLINICAL COORDINATOR TROPONIN T, HIGH SENSITIVITY STAT 06/12/2024 7:17 PM CLINICAL COORDINATOR BASIC METABOLIC PANEL STAT 06/12/2024 7:17 PM CLINICAL COORDINATOR INR STAT 06/12/2024 7:17 PM CLINICAL COORDINATOR EKG 12-LEAD, TRACING ONLY STAT 06/12/2024 6:37 PM CLINICAL COORDINATOR ECG 12-LEAD WITH MUSE SJN,SJO,WWH STAT 06/11/2024 9:04 PM CLINICAL COORDINATOR CBC WITH PLATELETS & DIFFERENTIAL Routine 06/07/2024 1:15 PM CLINICAL COORDINATOR Sickle cell pain crisis (H) RBC AND PLATELET MORPHOLOGY Routine 06/07/2024 1:15 PM CLINICAL COORDINATOR Sickle cell pain crisis (H) INFLUENZA A/B, RSV AND SARS-COV2 PCR Routine 06/07/2024 1:15 PM CLINICAL COORDINATOR Fever CBC WITH PLATELETS AND DIFFERENTIAL Routine 06/07/2024 1:15 PM CLINICAL COORDINATOR Sickle cell pain crisis (H) BASIC METABOLIC PANEL Routine 06/07/2024 1:15 PM CLINICAL COORDINATOR Sickle cell pain crisis (H) ECG 12-LEAD WITH MUSE SJN,SJO,WWH STAT 06/05/2024 11:40 AM CLINICAL COORDINATOR ECG 12-LEAD WITH MUSE SJN,SJO,WWH STAT 06/03/2024 3:24 PM CLINICAL COORDINATOR CBC WITH PLATELETS & DIFFERENTIAL STAT 05/31/2024 10:21 PM CLINICAL COORDINATOR RBC AND PLATELET MORPHOLOGY STAT 05/31/2024 10:21 PM CLINICAL COORDINATOR CBC WITH PLATELETS AND DIFFERENTIAL STAT 05/31/2024 10:21 PM CLINICAL COORDINATOR BASIC METABOLIC PANEL STAT 05/31/2024 10:21 PM CLINICAL COORDINATOR RETICULOCYTE COUNT STAT 05/31/2024 10:21 PM CLINICAL COORDINATOR TRANSFUSE RED BLOOD CELLS (UNIT) Routine 05/30/2024 8:28 AM CLINICAL COORDINATOR 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) History of transfusion PREPARE RED BLOOD CELLS (UNIT) Routine 05/29/2024 5:12 PM CLINICAL COORDINATOR ABO/RH TYPE AND SCREEN Routine 11:23 AM CLINICAL COORDINATOR History of transfusion CBC WITH PLATELETS & DIFFERENTIAL Routine 05/29/2024 11:23 AM CLINICAL COORDINATOR BILL ONLY- CAPILLARY ELECTROPHORESIS Routine 05/29/2024 11:23 AM CLINICAL COORDINATOR BILL ONLY- SICKLE SOLUBILITY BILL Routine 05/29/2024 11:23 AM CLINICAL COORDINATOR URINE CULTURE Routine 05/29/2024 11:23 AM CLINICAL COORDINATOR TYPE AND SCREEN, ADULT Add-On 11:23 AM CLINICAL COORDINATOR History of transfusion RBC AND PLATELET MORPHOLOGY Routine 05/29/2024 11:23 AM CLINICAL COORDINATOR CBC WITH PLATELETS AND DIFFERENTIAL Routine 05/29/2024 11:23 AM CLINICAL COORDINATOR GENOTYPE RED BLOOD CELL Routine 05/29/2024 11:23 AM CLINICAL COORDINATOR History of transfusion HEMOGLOBIN EVAL REFLEX TO ELP OR RBC SOLUBILITY Routine 05/29/2024 11:23 AM CLINICAL COORDINATOR FERRITIN Routine 05/29/2024 11:23 AM CLINICAL COORDINATOR ROUTINE UA WITH MICROSCOPIC REFLEX TO CULTURE Routine 05/29/2024 11:23 AM CLINICAL COORDINATOR COMPREHENSIVE METABOLIC PANEL Routine 05/29/2024 11:23 AM CLINICAL COORDINATOR RETICULOCYTE COUNT Routine 05/29/2024 11:23 AM CLINICAL COORDINATOR CBC WITH PLATELETS & DIFFERENTIAL STAT 05/29/2024 12:53 AM CLINICAL COORDINATOR MANUAL DIFFERENTIAL STAT 05/29/2024 12:53 AM CLINICAL COORDINATOR CBC WITH PLATELETS AND DIFFERENTIAL STAT 05/29/2024 12:53 AM CLINICAL COORDINATOR RETICULOCYTE COUNT STAT 05/29/2024 12:53 AM CLINICAL COORDINATOR CBC WITH PLATELETS & DIFFERENTIAL STAT 05/27/2024 3:13 PM CLINICAL COORDINATOR MANUAL DIFFERENTIAL STAT 05/27/2024 3 :13 PM CLINICAL COORDINATOR CBC WITH PLATELETS AND DIFFERENTIAL STAT 05/27/2024 3:13 PM CLINICAL COORDINATOR RETICULOCYTE COUNT STAT 05/27/2024 3: 13 PM CLINICAL COORDINATOR XR CHEST 2 VIEWS STAT 05/27/2024 2:57 PM CLINICAL COORDINATOR COMPREHENSIVE METABOLIC PANEL STAT 05/27/2024 2:30 PM CLINICAL COORDINATOR ECG 12-LEAD WITH MUSE SJNJEREMIAS WWH STAT 05/27/2024 12:12 PM CLINICAL COORDINATOR IR PROCEDURE NOTE Routine 05/25/2024 2:5 4 PM CLINICAL COORDINATOR IR CHEST PORT PLACEMENT > 5 YRS OF AGE Routine: Next available opening 05/25/2024 2:47 PM CLINICAL COORDINATOR 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) IR CHEST PORT PLACEMENT > 5 YRS OF AGE Priority: 1-2 Weeks 05/25/2024 2:47 PM CLINICAL COORDINATOR 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) HCG QUALITATIVE URINE Routine 05/25/2024 12:[address] CHEST PULMONARY EMBOLISM W CONTRAST STAT 05/23/2024 9:33 PM CLINICAL COORDINATOR N TERMINAL PRO BNP OUTPATIENT STAT 05/23/2024 9:02 PM CLINICAL COORDINATOR TROPONIN T, HIGH SENSITIVITY STAT 05/23/2024 9:02 PM CLINICAL COORDINATOR RETICULOCYTE COUNT STAT 05/23/2024 9: 02 PM CLINICAL COORDINATOR CBC WITH PLATELETS STAT 05/23/2024 9: 02 PM CLINICAL COORDINATOR ECG 12-LEAD WITH MUSE SJN,SJO,WWH STAT 05/23/2024 6:54 PM CLINICAL COORDINATOR XR CHEST 2 VIEWS STAT 05/22/2024 5:19 PM CLINICAL COORDINATOR CBC WITH PLATELETS & DIFFERENTIAL STAT 05/22/2024 3:51 PM CLINICAL COORDINATOR RBC AND PLATELET MORPHOLOGY STAT 05/22/2024 3:51 PM CLINICAL COORDINATOR CBC WITH PLATELETS AND DIFFERENTIAL STAT 05/22/2024 3:51 PM CLINICAL COORDINATOR BASIC METABOLIC PANEL STAT 05/22/2024 3:51 PM CLINICAL COORDINATOR ECG 12-LEAD WITH MUSE SJN,SJO,WWH STAT 05/22/2024 3:14 PM CLINICAL COORDINATOR XR CHEST 2 VIEWS STAT 05/20/2024 9:30 AM CLINICAL COORDINATOR CBC WITH PLATELETS & DIFFERENTIAL STAT 05/20/2024 9:09 AM CLINICAL COORDINATOR RBC AND PLATELET MORPHOLOGY STAT 05/20/2024 9:09 AM CLINICAL COORDINATOR BASIC METABOLIC PANEL STAT 05/20/2024 9:09 AM CLINICAL COORDINATOR EXTRA GREEN TOP (LITHIUM HEPARIN) TUBE STAT 05/20/2024 9:09 AM CLINICAL COORDINATOR EXTRA TUBE STAT 05/20/2024 9:09 AM CLINICAL COORDINATOR CBC WITH PLATELETS AND DIFFERENTIAL STAT 05/20/2024 9:09 AM CLINICAL COORDINATOR RETICULOCYTE COUNT STAT 05/20/2024 9: 09 AM CLINICAL COORDINATOR BASIC METABOLIC PANEL STAT 05/20/2024 8:21 AM CLINICAL COORDINATOR ECG 12-LEAD WITH MUSE SJN,SJO,WWH STAT 05/20/2024 7:36 AM CLINICAL COORDINATOR CBC WITH PLATELETS & DIFFERENTIAL STAT 05/19/2024 3:05 AM CLINICAL COORDINATOR MANUAL DIFFERENTIAL STAT 05/19/2024 3 :05 AM CLINICAL COORDINATOR CBC WITH PLATELETS AND DIFFERENTIAL STAT 05/19/2024 3:05 AM CLINICAL COORDINATOR HCG QUALITATIVE STAT 05/19/2024 3:05 AM CLINICAL COORDINATOR CK TOTAL STAT 05/19/2024 3:05 AM CLINICAL COORDINATOR HEPATIC FUNCTION PANEL STAT 3:05 AM CLINICAL COORDINATOR BASIC METABOLIC PANEL STAT 05/19/2024 3:05 AM CLINICAL COORDINATOR RETICULOCYTE COUNT STAT 05/19/2024 3: 05 AM CLINICAL COORDINATOR CBC WITH PLATELETS & DIFFERENTIAL STAT 05/16/2024 10:17 PM CLINICAL COORDINATOR RBC AND PLATELET MORPHOLOGY STAT 05/16/2024 10:17 PM CLINICAL COORDINATOR CBC WITH PLATELETS AND DIFFERENTIAL STAT 05/16/2024 10:17 PM CLINICAL COORDINATOR BASIC METABOLIC PANEL STAT 05/16/2024 10:17 PM CLINICAL COORDINATOR INFLUENZA A/B, RSV AND SARS-COV2 PCR STAT 05/16/2024 10:00 PM CLINICAL COORDINATOR CBC WITH PLATELETS & DIFFERENTIAL STAT 05/14/2024 10:24 PM CLINICAL COORDINATOR MANUAL DIFFERENTIAL STAT 05/14/2024 10:24 PM CLINICAL COORDINATOR CBC WITH PLATELETS AND DIFFERENTIAL STAT 05/14/2024 10:24 PM CLINICAL COORDINATOR HCG QUALITATIVE STAT 05/14/2024 10:24 PM CLINICAL COORDINATOR TROPONIN T, HIGH SENSITIVITY STAT 05/14/2024 10:24 PM CLINICAL COORDINATOR RETICULOCYTE COUNT STAT 05/14/2024 10:24 PM CLINICAL COORDINATOR HEPATIC FUNCTION PANEL STAT 10:24 PM CLINICAL COORDINATOR BASIC METABOLIC PANEL STAT 05/14/2024 10:24 PM CLINICAL COORDINATOR ECG 12-LEAD WITH MUSE SJN,SJO,WWH STAT 05/14/2024 10:12 PM CLINICAL COORDINATOR EXTRA PURPLE TOP TUBE STAT 05/13/2024 6:17 PM CLINICAL COORDINATOR EXTRA TUBE STAT 05/13/2024 6:17 PM CLINICAL COORDINATOR LACTATE DEHYDROGENASE STAT 05/13/2024 6:16 PM CLINICAL COORDINATOR CBC WITH PLATELETS & DIFFERENTIAL STAT 05/13/2024 4:57 PM CLINICAL COORDINATOR MANUAL DIFFERENTIAL STAT 05/13/2024 4 :57 PM CLINICAL COORDINATOR CBC WITH PLATELETS AND DIFFERENTIAL STAT 05/13/2024 4:57 PM CLINICAL COORDINATOR TROPONIN T, HIGH SENSITIVITY STAT 05/13/2024 4:57 PM CLINICAL COORDINATOR RETICULOCYTE COUNT STAT 05/13/2024 4: 57 PM CLINICAL COORDINATOR HEPATIC FUNCTION PANEL STAT 4:57 PM CLINICAL COORDINATOR BASIC METABOLIC PANEL STAT 05/13/2024 4:57 PM CLINICAL COORDINATOR ECG 12-LEAD WITH MUSE SJN,SJO,WWH STAT 05/13/2024 3:38 PM CLINICAL COORDINATOR INFLUENZA A/B, RSV AND SARS-COV2 PCR STAT 05/08/2024 7:33 PM CLINICAL COORDINATOR XR CHEST 2 VIEWS STAT 05/08/2024 5:27 PM CLINICAL COORDINATOR CBC WITH PLATELETS & DIFFERENTIAL STAT 05/08/2024 4:14 PM CLINICAL COORDINATOR RBC AND PLATELET MORPHOLOGY STAT 05/08/2024 4:14 PM CLINICAL COORDINATOR CBC WITH PLATELETS AND DIFFERENTIAL STAT 05/08/2024 4:14 PM CLINICAL COORDINATOR HCG QUALITATIVE STAT 05/08/2024 4:14 PM CLINICAL COORDINATOR INR STAT 05/08/2024 4:14 PM CLINICAL COORDINATOR TROPONIN T, HIGH SENSITIVITY STAT 05/08/2024 4:14 PM CLINICAL COORDINATOR RETICULOCYTE COUNT STAT 05/08/2024 4: 14 PM CLINICAL COORDINATOR COMPREHENSIVE METABOLIC PANEL STAT 05/08/2024 4:14 PM CLINICAL COORDINATOR ECG 12-LEAD WITH MUSE SJN,SJO,WWH STAT 05/08/2024 3:13 PM CLINICAL COORDINATOR ECG 12-LEAD WITH MUSE SJN,SJO,WWH STAT 05/06/2024 7:51 PM CLINICAL COORDINATOR CBC WITH PLATELETS & DIFFERENTIAL STAT 05/06/2024 7:43 PM CLINICAL COORDINATOR RBC AND PLATELET MORPHOLOGY STAT 05/06/2024 7:43 PM CLINICAL COORDINATOR CBC WITH PLATELETS AND DIFFERENTIAL STAT 05/06/2024 7:43 PM CLINICAL COORDINATOR HEPATIC FUNCTION PANEL STAT 7:43 PM CLINICAL COORDINATOR RETICULOCYTE COUNT STAT 05/06/2024 7: 43 PM CLINICAL COORDINATOR TROPONIN T, HIGH SENSITIVITY STAT 05/06/2024 7:43 PM CLINICAL COORDINATOR BASIC METABOLIC PANEL STAT 05/06/2024 7:43 PM CLINICAL COORDINATOR XR CHEST 2 VIEWS STAT 05/05/2024 12:16 PM CLINICAL COORDINATOR CBC WITH PLATELETS & DIFFERENTIAL STAT 05/05/2024 11:50 AM CLINICAL COORDINATOR RBC AND PLATELET MORPHOLOGY STAT 05/05/2024 11:50 AM CLINICAL COORDINATOR CBC WITH PLATELETS AND DIFFERENTIAL STAT 05/05/2024 11:50 AM CLINICAL COORDINATOR TROPONIN T, HIGH SENSITIVITY STAT 05/05/2024 11:50 AM CLINICAL COORDINATOR RETICULOCYTE COUNT STAT 05/05/2024 11:50 AM CLINICAL COORDINATOR BASIC METABOLIC PANEL STAT 05/05/2024 11:50 AM CLINICAL COORDINATOR ECG 12-LEAD WITH MUSE SJN,SJO,WWH STAT 05/05/2024 11:03 AM CLINICAL COORDINATOR CBC WITH PLATELETS & DIFFERENTIAL STAT 04/28/2024 1:50 AM CLINICAL COORDINATOR VITAMIN D DEFICIENCY SCREENING Add-On 04/28/2024 1:50 AM CLINICAL COORDINATOR Sickle cell pain crisis (H) MANUAL DIFFERENTIAL STAT 04/28/2024 1 :50 AM CLINICAL COORDINATOR CBC WITH PLATELETS AND DIFFERENTIAL STAT 04/28/2024 1:50 AM CLINICAL COORDINATOR RETICULOCYTE COUNT STAT 04/28/2024 1: 50 AM CLINICAL COORDINATOR COMPREHENSIVE METABOLIC PANEL STAT 04/28/2024 1:50 AM CLINICAL COORDINATOR CBC WITH PLATELETS & DIFFERENTIAL STAT 04/27/2024 12:23 AM CLINICAL COORDINATOR RBC AND PLATELET MORPHOLOGY STAT 04/27/2024 12:23 AM CLINICAL COORDINATOR CBC WITH PLATELETS AND DIFFERENTIAL STAT 04/27/2024 12:23 AM CLINICAL COORDINATOR RETICULOCYTE COUNT STAT 04/27/2024 12:23 AM CLINICAL COORDINATOR COMPREHENSIVE METABOLIC PANEL STAT 04/27/2024 12:[address] PELVIS BONE WO CONTRAST STAT 04/19/2024 3:22 AM CLINICAL COORDINATOR HCG QUALITATIVE URINE STAT 04/19/2024 2:17 AM CLINICAL COORDINATOR ROUTINE UA WITH MICROSCOPIC REFLEX TO CULTURE STAT 04/19/2024 2:16 AM CLINICAL COORDINATOR CBC WITH PLATELETS & DIFFERENTIAL STAT 04/19/2024 2:11 AM CLINICAL COORDINATOR MANUAL DIFFERENTIAL STAT 04/19/2024 2 :11 AM CLINICAL COORDINATOR CBC WITH PLATELETS AND DIFFERENTIAL STAT 04/19/2024 2:11 AM CLINICAL COORDINATOR RETICULOCYTE COUNT STAT 04/19/2024 2: 11 AM CLINICAL COORDINATOR BASIC METABOLIC PANEL STAT 04/19/2024 2:11 AM CLINICAL COORDINATOR CBC WITH PLATELETS & DIFFERENTIAL Routine 04/10/2024 5:35 AM CLINICAL COORDINATOR CBC WITH PLATELETS AND DIFFERENTIAL Routine 04/10/2024 5:35 AM CLINICAL COORDINATOR CBC WITH PLATELETS STAT 04/09/2024 6: 13 AM CLINICAL COORDINATOR BASIC METABOLIC PANEL STAT 04/09/2024 6:13 AM CLINICAL COORDINATOR CBC WITH PLATELETS & DIFFERENTIAL STAT 04/08/2024 10:22 PM CLINICAL COORDINATOR EXTRA RED TOP TUBE STAT 04/08/2024 10:22 PM CLINICAL COORDINATOR EXTRA BLUE TOP TUBE STAT 04/08/2024 10:22 PM CLINICAL COORDINATOR CBC WITH PLATELETS AND DIFFERENTIAL STAT 04/08/2024 10:22 PM CLINICAL COORDINATOR EXTRA TUBE STAT 04/08/2024 10:22 PM CLINICAL COORDINATOR BASIC METABOLIC PANEL STAT 04/08/2024 10:22 PM CLINICAL COORDINATOR RETICULOCYTE COUNT STAT 04/08/2024 10:22 PM CLINICAL COORDINATOR ECG 12-LEAD WITH MUSE SJN,SJO,WWH STAT 04/08/2024 9:[address] CHEST PULMONARY EMBOLISM W CONTRAST STAT 04/06/2024 2:22 AM CLINICAL COORDINATOR D DIMER QUANTITATIVE STAT 04/06/2024 12:45 AM CLINICAL COORDINATOR TROPONIN T, HIGH SENSITIVITY STAT 04/06/2024 12:45 AM CLINICAL COORDINATOR BASIC METABOLIC PANEL STAT 04/06/2024 12:45 AM CLINICAL COORDINATOR CBC WITH PLATELETS AND DIFFERENTIAL STAT 04/06/2024 12:43 AM CLINICAL COORDINATOR ECG 12-LEAD WITH MUSE SJN,SJO,WWH STAT 04/06/2024 12:41 AM CLINICAL COORDINATOR CBC WITH PLATELETS & DIFFERENTIAL STAT 04/05/2024 11:47 PM CLINICAL COORDINATOR from Last 3 Months Results * Extra Purple Top Tube (06/29/2024 6:05 AM CLINICAL COORDINATOR) Only the most recent of2 resultswithin the time period is included. Hold Specimen [facility] 06/29/2024 7:31 AM CLINICAL COORDINATOR [facility] Blood ARTERIAL LINE / Unknown IVAD (Port) / Unknown 06/29/2024 6:05 AM CLINICAL COORDINATOR 06/29/2024 6:19 AM CLINICAL COORDINATOR us Alex Gillespie MD LAB - BLOOD ORDERABLES Final Re sult [facility] [place] [facility] Lab [address] [facility], [address] [place] [address], [place] * (ABNORMAL) CBC with platelets and differential (06/29/2024 6:05 AM CLINICAL COORDINATOR) Only the most recent of35 resultswithin the time period is included. WBC Count 12.3(H) 4.0 - 11.0 10e3/uL 06/29/2024 6:30 AM CLINICAL COORDINATOR [facility] RBC Count 2.60(L) 3.80 - 5.20 10e6/uL 06/29/2024 6:30 AM CLINICAL COORDINATOR [facility] Hemoglobin 8.5(L) 11.7 - 15.7 g/dL 06/29/2024 6:30 AM CLINICAL COORDINATOR [facility] Hematocrit 25.5(L) 35.0 - 47.0 % 06/29/2024 6:30 AM CLINICAL COORDINATOR [facility] MCV 98 78 - 100 fL 06/29/2024 6:30 AM CLINICAL COORDINATOR [facility] MCH 32.7 26.5 - 33.0 pg 06/29/2024 6:30 AM CLINICAL COORDINATOR [facility] MCHC 33.3 31.5 - 36.5 g/dL 06/29/2024 6:30 AM CLINICAL COORDINATOR [facility] RDW 17.9(H) 10.0 - 15.0 % 06/29/2024 6:30 AM CLINICAL COORDINATOR [facility] Platelet Count 438 150 - 450 10e3/uL 06/29/2024 6:30 AM CLINICAL COORDINATOR [facility] % Neutrophils 62 % 06/29/2024 6:30 AM CLINICAL COORDINATOR [facility] % Lymphocytes 25 % 06/29/2024 6:30 AM CLINICAL COORDINATOR [facility] % Monocytes 9 % 06/29/2024 6:30 AM CLINICAL COORDINATOR [facility] % Eosinophils 3 % 06/29/2024 6:30 AM CLINICAL COORDINATOR [facility] % Basophils 1 % 06/29/2024 6:30 AM CLINICAL COORDINATOR [facility] % Immature Granulocytes 0 % 06/29/2024 6:30 AM CLINICAL COORDINATOR [facility] NRBCs per 100 WBC 1(H) <1 /100 025 6:30 AM CLINICAL COORDINATOR [facility] Absolute Neutrophils 7.6 1.6 - 8.3 10e3/uL 06/29/2024 6:30 AM CLINICAL COORDINATOR [facility] Absolute Lymphocytes 3.1 0.8 - 5.3 10e3/uL 06/29/2024 6:30 AM CLINICAL COORDINATOR [facility] Absolute Monocytes 1.1 0.0 - 1.3 10e3/uL 06/29/2024 6:30 AM CLINICAL COORDINATOR [facility] Absolute Eosinophils 0.4 0.0 - 0.7 10e3/uL 06/29/2024 6:30 AM CLINICAL COORDINATOR [facility] Absolute Basophils 0.1 0.0 - 0.2 10e3/uL 06/29/2024 6:30 AM CLINICAL COORDINATOR [facility] Absolute Immature Granulocytes 0.0 <=0.4 10e3/uL 06/29/2024 6:30 AM CLINICAL COORDINATOR [facility] Absolute NRBCs 0.1 10e3/uL 06/29/2024 6:30 AM CLINICAL COORDINATOR [facility] Blood ARTERIAL LINE / Unknown IVAD (Port) / Unknown 06/29/2024 6:05 AM CLINICAL COORDINATOR 06/29/2024 6:17 AM CLINICAL COORDINATOR us Polly Allen MD LAB - BLOOD ORDER SYD Final Result [facility] [place] [facility] Lab [address] [facility], [address] [phone] * (ABNORMAL) Comprehensive metabolic panel (06/29/2024 6:04 AM CLINICAL COORDINATOR) Only the most recent of14 resultswithin the time period is included. Sodium 132(L) 135 - 145 mmol/L 06/29/2024 6:51 AM CLINICAL COORDINATOR [facility] Potassium 4.6 3.4 - 5.3 mmol/L 06/29/2024 6:51 AM CLINICAL COORDINATOR [facility] Carbon Dioxide (CO2) 21(L) 22 - 29 mmol/L 06/29/2024 6:51 AM CLINICAL COORDINATOR [facility] Anion Gap 9 7 - 15 mmol/L 06/29/2024 6:51 AM CLINICAL COORDINATOR [facility] Urea Nitrogen 14.3 6.0 - 20.0 mg/dL 06/29/2024 6:51 AM CLINICAL COORDINATOR [facility] Creatinine 0.70 0.51 - 0.95 mg/dL 06/29/2024 6:51 AM CLINICAL COORDINATOR [facility] GFR Estimate >90 >60 mL/min/1.7 3m2 06/29/2024 6:51 AM CLINICAL COORDINATOR [facility] Comment:eGFR calculated in 2020 CKD-EPI equation. Calcium 8.9 8.8 - 10.4 mg/dL 06/29/2024 6:51 AM CLINICAL COORDINATOR [facility] Chloride 102 98 - 107 mmol/L 06/29/2024 6:51 AM CLINICAL COORDINATOR [facility] Glucose 98 70 - 99 mg/dL 06/29/2024 6:51 AM CLINICAL COORDINATOR [facility] Alkaline Phosphatase 106 40 - 150 U/L 06/29/2024 6:51 AM CLINICAL COORDINATOR [facility] AST 49(H) 0 - 45 U/L 06/29/2024 6:51 AM CLINICAL COORDINATOR [facility] ALT 44 0 - 50 U/L 06/29/2024 6:51 AM CLINICAL COORDINATOR [facility] Protein Total 7.5 6.4 - 8.3 g/dL 06/29/2024 6:51 AM CLINICAL COORDINATOR [facility] Albumin 4.1 3.5 - 5.2 g/dL 06/29/2024 6:51 AM CLINICAL COORDINATOR [facility] Bilirubin Total 1.6(H) <=1.2 mg/dL 06/29/2024 6:51 AM CLINICAL COORDINATOR [facility] Blood ARTERIAL LINE / Unknown IVAD (Port) / Unknown 06/29/2024 6:04 AM CLINICAL COORDINATOR 06/29/2024 6:19 AM CLINICAL COORDINATOR Polly Allen MD LAB - BLOOD ORDER SYD Final Result [facility] [place] [facility] Lab [address] [facility], [address] [place] [phone] * (ABNORMAL) RBC and Platelet Morphology (06/28/2024 6:06 AM CLINICAL COORDINATOR) Only the most recent of16 resultswithin the time period is included. RBC Morphology Confirmed RBC Indices 06/28/2024 7:15 AM CLINICAL COORDINATOR [facility] Platelet Assessment Automated Count Confirmed. Platelet morphology is normal. Automated Count Confirmed. Platelet morphology is normal. 06/28/2024 7:15 AM CLINICAL COORDINATOR [facility] Sickle Cells Slight(A) None Seen 06/28/2024 7:15 AM CLINICAL COORDINATOR [facility] Target Cells Moderate(A) None Seen 06/28/2024 7:15 AM CLINICAL COORDINATOR [facility] Blood VENOUS LINE / Unknown Venipuncture / Unknown 06/28/2024 6:06 AM CLINICAL COORDINATOR 06/28/2024 6:22 AM CLINICAL COORDINATOR Polly Allen MD LAB - BLOOD ORDER SYD Final Result Performing Organization Address City/[facility]/ZIP Co de Phone Number LABORATORY [facility] Core Lab [address] [facility], [address] * (ABNORMAL) Lactate Dehydrogenase (06/28/2024 6:06 AM CLINICAL COORDINATOR) Only the most recent of5 resultswithin the time period is included. Lactate Dehydrogenase 451(H) 0 - 250 U/L 06/28/2024 6:51 AM CLINICAL COORDINATOR [facility] Blood VENOUS LINE / Unknown Venipuncture / Unknown 06/28/2024 6:06 AM CLINICAL COORDINATOR 06/28/2024 6:22 AM CLINICAL COORDINATOR Polly Allen MD LAB - BLOOD ORDER SYD Final Result Performing Organization Address City/[facility] de Phone Number LABORATORY [facility] Core Lab [address] [facility], [address] [place] [address] * (ABNORMAL) Reticulocyte count (06/28/2024 6:06 AM CLINICAL COORDINATOR) Only the most recent of23 resultswithin the time period is included. % Reticulocyte 12.7(H) 0.5 - 2.0 % 06/28/2024 6:57 AM CLINICAL COORDINATOR [facility] Comment:x2 dilution Absolute Reticulocyte 0.316(H) 0.025 - 0.095 10e6/uL 06/28/2024 6:57 AM CLINICAL COORDINATOR [facility] Comment:x2 dilution Blood VENOUS LINE / Unknown Venipuncture / Unknown 06/28/2024 6:06 AM CLINICAL COORDINATOR 06/28/2024 6:22 AM CLINICAL COORDINATOR Polly Allen MD LAB - BLOOD ORDER SYD Final Result Performing Organization Address [facility]/ZIP Co de Phone Number LABORATORY [facility] Core Lab [address] [place] [address], [facility] [address] * (ABNORMAL) Bilirubin direct (06/28/2024 6:06 AM CLINICAL COORDINATOR) Bilirubin Direct 0.53(H) 0.00 - 0.30 mg/dL 06/28/2024 9:50 AM CLINICAL COORDINATOR [facility] Blood VENOUS LINE / Unknown Venipuncture / Unknown 06/28/2024 6:06 AM CLINICAL COORDINATOR 06/28/2024 6:22 AM CLINICAL COORDINATOR Polly Allen MD LAB - BLOOD ORDER SYD Final Result Performing Organization Address [facility] Phone Number LABORATORY [facility] Lab [address] [place] [address], [address] * Heparin Unfractionated Anti Xa Level (06/28/2024 1:57 AM CLINICAL COORDINATOR) Only the most recent of5 resultswithin the time period is included. [facility] Anti Xa Unfractionated Heparin 0.45 For Reference Range, See Comment IU/mL 06/28/2024 2:32 AM CLINICAL COORDINATOR [facility] Blood VENOUS LINE / Unknown Venipuncture / Unknown 06/28/2024 1:57 AM CLINICAL COORDINATOR 06/28/2024 2:17 AM CLINICAL COORDINATOR Narrative [facility] - 06/28/2024 2:32 AM CLINICAL COORDINATOR Therapeutic Range: UFH: 0.25-0.50 IU/mL for low intensity dosing, 0.30-0.70 IU/mL for high intensity dosing DVT and PE. This test is not validated for other direct factor X inhibitors (e.g. rivaroxaban, apixaban, edoxaban, betrixaban, fondaparinux) and should not be used for monitoring of other medications. Alex Gillespie MD LAB - BLOOD ORDERABLES Final Re sult LABORATORY [facility] Lab [address], [address] [place] [address] * Extra Green Top (Botines Heparin) Tube (06/27/2024 5:55 PM CLINICAL COORDINATOR) Only the most recent of2 resultswithin the time period is included. Hold Specimen JIC 06/27/2024 8:31 PM CLINICAL COORDINATOR LABORATORY Blood STRUCTURE OF RIGHT WRIST REGION / Unknown Venipuncture / Unknown 06/27/2024 5:55 PM CLINICAL COORDINATOR 06/27/2024 7:22 PM CLINICAL COORDINATOR us Alex Gillespie MD LAB - BLOOD ORDERABLES Final Re sult LABORATORY [facility] Core Lab [address], [address] [place] [id number] * ECHO COMPLETE (06/27/2024 2:33 PM CLINICAL COORDINATOR) LVEF 55-60% CARDIOLOGY RESULTS Anatomical Region Laterality Modality Echocardiography 06/27/2024 1:58 PM CLINICAL COORDINATOR Narrative 06/27/2024 2:51 PM CLINICAL COORDINATOR [id number]^BRITTANEY^[facility] Ech[facility] Laboratory [address] [place] [address] Name: LEW HERNÁNDEZ : 1995 Study Date: 06/27/2024 01:58 PM Age: 29 yrs Gender: Female Patient Location: [facility] Reason For Study: Pulmonary Emboli [...] Procedure Note Salvador Perea MD - 06/27/2024 [id number]^BRITTANEY^[facility] E[facility] Laboratory [address] [place] [id number] Name: LEW HERNÁNDEZ : 1995 Study Date: 06/27/2024 01:58 PM Age: 29 yrs Gender: Female Patient Location: [facility] Reason For Study: Pulmonary Emboli [...] max lj: 90.1 cm/sec MV A max jl: 50.3 cm/sec MV E/A: 1.8 MV dec [...] Extremity Venous Duplex Bilateral (06/27/2024 11:21 AM CLINICAL COORDINATOR) Anatomical Region Laterality Modality Vascular, Thigh, Leg Ultrasound Impressions 06/27/2024 11:45 AM CLINICAL COORDINATOR IMPRESSION: No evidence of deep venous thrombosis in either lower extremity. I have personally reviewed the examination and initial interpretation and I agree with the findings. NINOSKA QUAN MD Narrative 06/27/2024 11:45 AM CLINICAL COORDINATOR EXAMINATION: DOPPLER VENOUS ULTRASOUND OF BILATERAL LOWER [...] NINOSKA QUAN MD Polly Marly Allen MD [facility] ORDERABLES Final Result * Influenza A/B, RSV and SARS-CoV2 PCR (COVID-19) Nose (06/27/2024 8:43 AM CLINICAL COORDINATOR) Only the most recent of4 resultswithin the time period is included. Pathologist [facility] Influenza A PCR Negative Negative 06/27/2024 10:03 AM CLINICAL COORDINATOR [facility] Influenza B PCR Negative Negative 06/27/2024 10:03 AM CLINICAL COORDINATOR [facility] RSV PCR Negative Negative 06/27/2024 10:03 AM CLINICAL COORDINATOR [facility] SARS CoV2 PCR Negative Negative 06/27/2024 10:03 AM CLINICAL COORDINATOR [facility] Comment:NEGATIVE: SARS-CoV-2 (COVID-19) RNA not detected, presumed negative. Swab NASAL STRUCTURE / Unknown Non-blood Collection / Unknown 06/27/2024 8:43 AM CLINICAL COORDINATOR 06/27/2024 8:59 AM CLINICAL COORDINATOR Narrative [facility] - 06/27/2024 10:03 AM CLINICAL COORDINATOR Testing was performed using the Xpert Xpress CoV2/Flu/RSV Assay on the ProFibrix GeneXpert Instrument. This test should be ordered [...] management. This test was validated by the [facility]. These laboratories are certified under the Clinical Laboratory Improvement Amendments of 1988 (CLIA-88) as qualified to perfom high complexity laboratory testing. Polly Allen MD LAB - MICRO GENER AL ORDERABLES Final Result [facility] Inf. Diseases Diag. Lab [address] [facility], [address] [place] [address] * (ABNORMAL) UA with Microscopic reflex to Culture (06/27/2024 8:12 AM CLINICAL COORDINATOR) Only the most recent of6 resultswithin the time period is included. Color Urine Light Yellow Colorless, Straw, Light Yellow, Yellow 06/27/2024 8:29 AM CLINICAL COORDINATOR [facility] Appearance Urine Clear Clear 06/28/19 8:29 AM CLINICAL COORDINATOR [facility] Glucose Urine Negative Negative mg/dL 06/27/2024 8:29 AM CLINICAL COORDINATOR [facility] Bilirubin Urine Negative Negative 8:29 AM CLINICAL COORDINATOR [facility] Ketones Urine Negative Negative mg/dL 06/27/2024 8:29 AM CLINICAL COORDINATOR [facility] Specific [place] Urine 1.011 1.003 - 1.035 06/27/2024 8:29 AM CLINICAL COORDINATOR [facility] Blood Urine Negative Negative 06/27/2024 8:29 AM CLINICAL COORDINATOR [facility] pH Urine 7.0 5.0 - 7.0 06/27/2024 8:29 AM CLINICAL COORDINATOR [facility] Protein Albumin Urine Negative Negative mg/dL 06/27/2024 8:29 AM CLINICAL COORDINATOR [facility] Urobilinogen Urine Normal Normal, 2.0 mg/dL 06/27/2024 8:29 AM CLINICAL COORDINATOR [facility] Nitrite Urine Negative Negative 06/27/2024 8:29 AM CLINICAL COORDINATOR [facility] Leukocyte Esterase Urine Negative Negative 06/27/2024 8:29 AM CLINICAL COORDINATOR [facility] RBC Urine 0 <=2 /HPF 06/27/2024 8:29 AM CLINICAL COORDINATOR [facility] WBC Urine 0 <=5 /HPF 06/27/2024 8:29 AM CLINICAL COORDINATOR [facility] Squamous Epithelials Urine 2(H) <=1 /HPF 06/27/2024 8:29 AM CLINICAL COORDINATOR [facility] Urine URINE SPECIMEN OBTAINED BY CLEAN CATCH PROCEDURE / Unknown Non-blood Collection / Unknown 06/27/2024 8:12 AM CLINICAL COORDINATOR 06/27/2024 8:18 AM CLINICAL COORDINATOR Narrative [facility] - 06/27/2024 8:29 AM CLINICAL COORDINATOR Urine Culture not indicated Polly Allen MD LAB - URINE ORDER SYD Final Result [facility] [place] Core Lab [address] [facility], [address] [place] [phone] * Adult Type and Screen (06/27/2024 5:57 AM CLINICAL COORDINATOR) Only the most recent of5 resultswithin the time period is included. ABO/RH(D) A POS 06/27/2024 11:54 AM CLINICAL COORDINATOR [facility] Antibody Screen Negative Negative 06/27/2024 11:54 AM CLINICAL COORDINATOR [facility] Comment:Current antibody scr een is negative. Patient has a history of antibody(ies). A delay in compatible red blood cells may occur. SPECIMEN EXPIRATION DATE [id number] 06/27/2024 11:54 AM CLINICAL COORDINATOR [facility] Blood BLOOD SPECIMEN / Unknown Venipuncture / Unknown 06/27/2024 5:57 AM CLINICAL COORDINATOR 06/27/2024 6:07 AM CLINICAL COORDINATOR Polly Allen MD LAB - BLOOD BANK TEST ORDER Final Result Performing Organization Address City/[facility]/ZIP Co de Phone Number [facility] [address] [place] [address] * (ABNORMAL) Hepatic panel (06/27/2024 5:57 AM CLINICAL COORDINATOR) Only the most recent of5 resultswithin the time period is included. Protein Total 7.4 6.4 - 8.3 g/dL 06/27/2024 9:06 AM CLINICAL COORDINATOR [facility] Albumin 4.0 3.5 - 5.2 g/dL 06/27/2024 9:06 AM CLINICAL COORDINATOR [facility] Bilirubin Total 1.2 <=1.2 mg/dL 06/27/2024 9:06 AM CLINICAL COORDINATOR [facility] Alkaline Phosphatase 113 40 - 150 U/L 06/27/2024 9:06 AM CLINICAL COORDINATOR [facility] AST 41 0 - 45 U/L 06/27/2024 9:06 AM CLINICAL COORDINATOR [facility] ALT 35 0 - 50 U/L 06/27/2024 9:06 AM CLINICAL COORDINATOR [facility] Bilirubin Direct 0.45(H) 0.00 - 0.30 mg/dL 06/27/2024 9:06 AM CLINICAL COORDINATOR [facility] Blood BLOOD SPECIMEN / Unknown Venipuncture / Unknown 06/27/2024 5:57 AM CLINICAL COORDINATOR 06/27/2024 6:06 AM CLINICAL COORDINATOR us Polly Allen MD LAB - BLOOD ORDER SYD Final Result [facility] [place] Core Lab [address] [facility], [address] [place] [phone] * (ABNORMAL) Basic metabolic panel (06/27/2024 5:57 AM CLINICAL COORDINATOR) Only the most recent of23 resultswithin the time period is included. Sodium 136 135 - 145 mmol/L 06/27/2024 7:08 AM CLINICAL COORDINATOR [facility] Potassium 4.2 3.4 - 5.3 mmol/L 06/27/2024 7:08 AM CLINICAL COORDINATOR [facility] Chloride 104 98 - 107 mmol/L 06/27/2024 7:08 AM CLINICAL COORDINATOR [facility] Carbon Dioxide (CO2) 23 22 - 29 mmol/L 06/27/2024 7:08 AM CLINICAL COORDINATOR [facility] Anion Gap 9 7 - 15 mmol/L 06/27/2024 7:08 AM CLINICAL COORDINATOR [facility] Urea Nitrogen 8.0 6.0 - 20.0 mg/dL 06/27/2024 7:08 AM CLINICAL COORDINATOR [facility] Creatinine 0.74 0.51 - 0.95 mg/dL 06/27/2024 7:08 AM CLINICAL COORDINATOR [facility] GFR Estimate >90 >60 mL/min/1.7 3m2 06/27/2024 7:08 AM CLINICAL COORDINATOR [facility] Comment:eGFR calculated 2020 CKD-EPI equation. Calcium 8.7(L) 8.8 - 10.4 mg/dL 06/27/2024 7:08 AM CLINICAL COORDINATOR [facility] Glucose 90 70 - 99 mg/dL 06/27/2024 7:08 AM CLINICAL COORDINATOR [facility] Blood BLOOD SPECIMEN / Unknown Venipuncture / Unknown 06/27/2024 5:57 AM CLINICAL COORDINATOR 06/27/2024 6:06 AM CLINICAL COORDINATOR us Jermaine Quispe MD LAB - BLOOD ORDERABLES Final Res ult [facility] [place] Core Lab [address] [facility], [address] [place] [address] * (ABNORMAL) CBC with platelets (06/27/2024 5:57 AM CLINICAL COORDINATOR) Only the most recent of6 resultswithin the time period is included. WBC Count 17.8(H) 4.0 - 11.0 10e3/uL 06/27/2024 6:16 AM CLINICAL COORDINATOR [facility] RBC Count 2.60(L) 3.80 - 5.20 10e6/uL 06/27/2024 6:16 AM CLINICAL COORDINATOR [facility] Hemoglobin 8.5(L) 11.7 - 15.7 g/dL 06/27/2024 6:16 AM CLINICAL COORDINATOR [facility] Hematocrit 25.9(L) 35.0 - 47.0 % 06/27/2024 6:16 AM CLINICAL COORDINATOR [facility] MCV 100 78 - 100 fL 06/27/2024 6:16 AM CLINICAL COORDINATOR [facility] MCH 32.7 26.5 - 33.0 pg 06/27/2024 6:16 AM CLINICAL COORDINATOR [facility] MCHC 32.8 31.5 - 36.5 g/dL 06/27/2024 6:16 AM CLINICAL COORDINATOR [facility] RDW 19.2(H) 10.0 - 15.0 % 06/27/2024 6:16 AM CLINICAL COORDINATOR [facility] Platelet Count 469(H) 150 - 450 10e3/uL 06/27/2024 6:16 AM CLINICAL COORDINATOR [facility] Blood BLOOD SPECIMEN / Unknown Venipuncture / Unknown 06/27/2024 5:57 AM CLINICAL COORDINATOR 06/27/2024 6:07 AM CLINICAL COORDINATOR us Jermaine Quispe MD LAB - BLOOD ORDERABLES Final Res ult Performing Organization Address City/[facility]/ZIP Co de Phone Number LABORATORY [facility] Core Lab [address] [place] [address], [address] * (ABNORMAL) Erythrocyte sedimentation rate auto (06/26/2024 6:46 PM CLINICAL COORDINATOR) Erythrocyte Sedimentation Rate 24(H) 0 - 20 mm/hr 06/26/2024 7:28 PM CLINICAL COORDINATOR LABORATORY Blood BLOOD SPECIMEN / Unknown Venipuncture / Unknown 06/26/2024 6:46 PM CLINICAL COORDINATOR 06/26/2024 7:14 PM CLINICAL COORDINATOR us Jermaine Quispe MD LAB - BLOOD ORDERABLES Final Res ult Performing Organization Address City/[facility] Co de Phone Number LABORATORY [facility] Core Lab [address] [place] [address], [facility] [address] * EKG 12 lead (06/26/2024 5:19 PM CLINICAL COORDINATOR) Only the most recent of4 resultswithin the time period is included. Systolic Blood Pressure mmHg RADIOLOGY RESULTS Diastolic Blood Pressure mmHg RADIOLOGY RESULTS Ventricular Rate 79 BPM RAD IOLOGY RESULTS Atrial Rate 79 BPM RADIOLOG Y RESULTS TX Interval 160 ms RADIOLOG Y RESULTS QRS Duration 78 ms RADIOLO GY RESULTS QT 380 ms RADIOLOGY RESULTS QTc 435 ms RADIOLOGY RESULTS P [place] 39 degrees RADIOLOGY RESULTS R AXIS 42 degrees RADIOLOGY RESULTS T [place] 18 degrees RADIOLOGY RESULTS Interpretation ECG Sinus rhythm Normal ECG Unconfirmed report - interpretation of this ECG is computer generated - see medical record for final interpretation Confirmed by - EMERGENCY ROOM, PHYSICIAN ([id number]), visual effects editor Woody Patten ([id number]) on 06/27/2024 6:46:34 AM RADIOLOGY RESULTS 06/26/2024 5:19 PM CLINICAL COORDINATOR 06/27/2024 6:46 AM CLINICAL COORDINATOR us Jayden Adhikari MD ECG ORDERABLES Edited Resul t - Final RADIOLOGY RESULTS * CT Chest Pulmonary Embolism w Contrast (06/26/2024 4:15 PM CLINICAL COORDINATOR) Only the most recent of3 resultswithin the time period is included. 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 No definitive evidence of right heart strain. Some bony changes again noted of sickle cell in the thoracic spine and humeral heads typical of microvascular insults related to sickle cell. EVY FUENTES MD Narrative 06/26/2024 4:[address] chest pulmonary angiogram with contrast INDICATION: [...] XR, PA & LAT (06/26/2024 3:13 PM CLINICAL COORDINATOR) Only the most recent of9 resultswithin the time period is included. Anatomical Region Laterality Modality Chest Digital Radiogra phy Impressions 06/26/2024 3:24 PM CLINICAL COORDINATOR IMPRESSION: 1. Stable appearance of right middle lobe opacities which may represent infiltrate versus atelectasis. 2. No new or worsening cardiopulmonary abnormality. I have personally reviewed the examination and initial interpretation and I agree with the findings. EVY FUENTES MD Narrative 06/26/2024 3:24 PM CLINICAL COORDINATOR EXAM: XR CHEST 2 VIEWS 06/26/2024 3:13 [...] findings. EVY FUENTES MD Jayden Adhikari MD [facility] ORDER SYD Final Result * Troponin T, High Sensitivity (06/26/2024 2:42 PM CLINICAL COORDINATOR) Only the most recent of12 resultswithin the time period is included. Pathologist [facility] Troponin T, High Sensitivity <6 <=14 ng/L 06/26/2024 3:24 PM CLINICAL COORDINATOR [facility] Comment: Either a High [...] Unknown Venipuncture / Unknown 06/26/2024 2:42 PM CLINICAL COORDINATOR 06/26/2024 2:52 PM CLINICAL COORDINATOR us Jayden Adhikari MD LAB - BLOOD ORDERABLES Final Result LABORATORY [facility] Core Lab [address] [facility], [address] [place] [address] * Procalcitonin (06/26/2024 2:42 PM CLINICAL COORDINATOR) Procalcitonin 0.03 <0.50 ng/mL 06/26/2024 5:02 PM CLINICAL COORDINATOR [facility] Comment: Interpretation and Recommendations <0.5 [...] See Procalcitonin Guidance document for more details. [email or web address] Factors that may affect PCT levels (not [...] Unknown Venipuncture / Unknown 06/26/2024 2:42 PM CLINICAL COORDINATOR 06/26/2024 2:52 PM CLINICAL COORDINATOR Jayden Adhikari MD LAB - BLOOD ORDERABLES Final Result Performing Organization Address City/[facility] de Phone Number LABORATORY [facility] [place] Core Lab [address] [facility], [address] * HCG qualitative (blood) (06/26/2024 2:42 PM CLINICAL COORDINATOR) Only the most recent of7 resultswithin the time period is included. [facility] hCG Serum Qualitative Negative Negative JARET 06/26/2024 3:04 PM CLINICAL COORDINATOR [facility] Comment:This test is for scr eening purposes. Results should be interpreted along with the clinical picture. Confirmation testing is available if warranted by ordering [id number], HCG Quantitative . Blood BLOOD SPECIMEN / Unknown Venipuncture / Unknown 06/26/2024 2:42 PM CLINICAL COORDINATOR 06/26/2024 2:50 PM CLINICAL COORDINATOR Jayden Adhikari MD LAB - BLOOD ORDERABLES Final Result Performing Organization Address [facility] de Phone Number LABORATORY [facility] Core Lab [address] [facility], [address] * (ABNORMAL) D dimer quantitative (06/26/2024 2:42 PM CLINICAL COORDINATOR) Only the most recent of2 resultswithin the time period is included. Pathologist [facility] D-Dimer Quantitative 0.69(H) 0.00 - 0.50 ug/mL FEU 06/26/2024 3:13 PM CLINICAL COORDINATOR [facility] Blood BLOOD SPECIMEN / Unknown Venipuncture / Unknown 06/26/2024 2:42 PM CLINICAL COORDINATOR 06/26/2024 2:52 PM CLINICAL COORDINATOR Narrative [facility] - 06/26/2024 3:13 PM CLINICAL COORDINATOR This D-dimer assay is intended for use in conjunction with a clinical pretest probability assessment model to exclude pulmonary embolism (PE) and deep venous thrombosis (DVT) in outpatients suspected of PE or DVT. The cut-off value is 0.50 ug/mL FEU. Jayden Adhikari MD LAB - BLOOD ORDERABLES Final Result Performing Organization Address City/[facility]/ZIP Co de Phone Number LABORATORY [facility] [place] Core Lab [address] [facility], [address] * CRP inflammation (06/26/2024 2:42 PM CLINICAL COORDINATOR) [facility] CRP Inflammation 4.22 <5.00 mg/L 06/27/19 5:02 PM CLINICAL COORDINATOR LABORATORY Blood BLOOD SPECIMEN / Unknown Venipuncture / Unknown 06/26/2024 2:42 PM CLINICAL COORDINATOR 06/26/2024 2:52 PM CLINICAL COORDINATOR Jayden Adhikari MD LAB - BLOOD ORDERABLES Final Result Performing Organization Address [facility] de Phone Number LABORATORY [facility] Core Lab [address] [facility], [address] * (ABNORMAL) INR (06/24/2024 10:11 AM CLINICAL COORDINATOR) Only the most recent of3 resultswithin the time period is included. [facility] INR 1.45(H) 0.85 - 1.15 06/24/2024 10:54 AM CLINICAL COORDINATOR LABORATORY Blood BLOOD SPECIMEN / Unknown Venipuncture / Unknown 06/24/2024 10:11 AM CLINICAL COORDINATOR 06/24/2024 10:21 AM CLINICAL COORDINATOR Result [facility] Richar Mahajan MD LAB - BLOOD ORDERABLES Liss l Result Performing Organization Address [facility]/ZIP Co de Phone Number LABORATORY [facility] [place] Core Lab [address] [facility], [address] * Partial thromboplastin time (06/24/2024 10:11 AM CLINICAL COORDINATOR) [facility] aPTT 32 22 - 38 Seconds 06/24/2024 10:55 AM CLINICAL COORDINATOR [facility] Blood BLOOD SPECIMEN / Unknown Venipuncture / Unknown 06/24/2024 10:11 AM CLINICAL COORDINATOR 06/24/2024 10:21 AM CLINICAL COORDINATOR Richar Mahajan MD LAB - BLOOD ORDERABLES Liss l Result U LABORATORY [facility] Core Lab [address] [facility], [address] * Magnesium (06/24/2024 10:11 AM CLINICAL COORDINATOR) [facility] Magnesium 2.1 1.7 - 2.3 mg/dL 06/24/2024 10:51 AM CLINICAL COORDINATOR [facility] Blood BLOOD SPECIMEN / Unknown Venipuncture / Unknown 06/24/2024 10:11 AM CLINICAL COORDINATOR 06/24/2024 10:21 AM CLINICAL COORDINATOR Richar Mahajan MD LAB - BLOOD ORDERABLES Liss l Result Performing Organization Address City/[facility]/ZIP Co de Phone Number U LABORATORY [facility] Core Lab [address] [place] [address], [address] * (ABNORMAL) Manual Differential (06/23/2024 6:22 PM CLINICAL COORDINATOR) Only the most recent of2 resultswithin the time period is included. [facility] % Neutrophils 73 % 06/23/2024 7:05 PM CLINICAL COORDINATOR [facility] % Lymphocytes 24 % 06/23/2024 7:05 PM CLINICAL COORDINATOR [facility] % Monocytes 2 % 06/23/2024 7:05 PM CLINICAL COORDINATOR [facility] % Eosinophils 0 % 06/23/2024 7:05 PM CLINICAL COORDINATOR [facility] % Basophils 2 % 06/23/2024 7:05 PM CLINICAL COORDINATOR [facility] NRBCs per 100 WBC 12(H) <=0 % 06/23/2024 7:05 PM CLINICAL COORDINATOR [facility] Absolute Neutrophils 7.2 1.6 - 8.3 10e3/uL 06/23/2024 7:05 PM CLINICAL COORDINATOR [facility] Absolute Lymphocytes 2.3 0.8 - 5.3 10e3/uL 06/23/2024 7:05 PM CLINICAL COORDINATOR [facility] Absolute Monocytes 0.2 0.0 - 1.3 10e3/uL 06/23/2024 7:05 PM CLINICAL COORDINATOR [facility] Absolute Eosinophils 0.0 0.0 - 0.7 10e3/uL 06/23/2024 7:05 PM CLINICAL COORDINATOR [facility] Absolute Basophils 0.2 0.0 - 0.2 10e3/uL 06/23/2024 7:05 PM CLINICAL COORDINATOR [facility] Absolute NRBCs 1.2(H) <=0.0 10e3/uL 025 7:05 PM CLINICAL COORDINATOR [facility] RBC Morphology Confirmed RBC Indices 06/23/2024 7:05 PM CLINICAL COORDINATOR [facility] Platelet Assessment Automated Count Confirmed. Platelet morphology is normal. Automated Count Confirmed. Platelet morphology is normal. 06/23/2024 7:05 PM CLINICAL COORDINATOR [facility] Polychromasia Slight(A) None Seen 06/23/2024 7:05 PM CLINICAL COORDINATOR [facility] Sickle Cells Slight(A) None Seen 06/23/2024 7:05 PM CLINICAL COORDINATOR [facility] Target Cells Slight(A) None Seen 06/23/2024 7:05 PM CLINICAL COORDINATOR [facility] Blood BLOOD SPECIMEN / Unknown Venipuncture / Unknown 06/23/2024 6:22 PM CLINICAL COORDINATOR 06/23/2024 6:34 PM CLINICAL COORDINATOR us Dayna Crane MD LAB - BLOOD ORDERABLES Final Re sult [facility] [place] Core Lab [address] [facility], [address] [place] [address] * (ABNORMAL) Platelet count (06/19/2024 12:17 AM CLINICAL COORDINATOR) [facility] Platelet Count 467(H) 150 - 450 10e3/uL 06/19/2024 12:44 AM CLINICAL COORDINATOR [facility] Blood BLOOD SPECIMEN / Unknown Venipuncture / Unknown 06/19/2024 12:17 AM CLINICAL COORDINATOR 06/19/2024 12:26 AM CLINICAL COORDINATOR Laquita Kelley MD LAB - BLOOD ORDERABLES Final Re sult U LABORATORY [facility] [place] Core Lab [address] [facility], [address] [phone] * Creatinine (06/19/2024 12:17 AM CLINICAL COORDINATOR) Creatinine 0.72 0.51 - 0.95 mg/dL 06/19/2024 12:51 AM CLINICAL COORDINATOR [facility] GFR Estimate >90 >60 mL/min/1.7 3m2 06/19/2024 12:51 AM CLINICAL COORDINATOR [facility] Comment:eGFR calculated 2020 CKD-EPI equation. Blood BLOOD SPECIMEN / Unknown Venipuncture / Unknown 06/19/2024 12:17 AM CLINICAL COORDINATOR 06/19/2024 12:26 AM CLINICAL COORDINATOR Laquita Kelley MD LAB - BLOOD ORDERABLES Final Re sult Performing Organization Address City/[facility] Co de Phone Number U LABORATORY [facility] [place] Core Lab [address] [facility], [address] [phone] * Transfuse red blood cells (unit), Sickle Cell (Hgb S) Negative (06/17/2024 2:33 PM CLINICAL COORDINATOR) Only the most recent of2 resultswithin the time period is included. Drake Nina MD BLOOD TRANSFUSION ORDERABLES Final Result * Prepare red blood cells (unit) (06/17/2024 9:12 AM CLINICAL COORDINATOR) Only the most recent of2 resultswithin the time period is included. Blood Component Type Red Blood Cells [facility] Product Code [id number] [facility] Unit Status Transfused [facility] Unit Number [id number] [facility] B LOOD BANK CROSSMATCH COMPATIBLE [facility] CODING SYSTEM [id number] [facility] BLO OD BANK ISSUE DATE AND TIME [id number] [facility] UNIT ABO/RH A+ [facility] UNIT TYPE ISBT [id number] [facility] BL OOD BANK 06/17/2024 9:12 AM CLINICAL COORDINATOR us Drake Nina MD BLOOD BANK PRODUCT ORDERABLES Final Result Performing Organization Address City/[facility]/ZIP Co de Phone Number BLOOD BANK [address] [place] [address] * (ABNORMAL) Transferrin (06/17/2024 6:16 AM CLINICAL COORDINATOR) Transferrin 100.0(L) 200.0 - 360.0 mg/dL 06/17/2024 9:36 AM CLINICAL COORDINATOR [facility] Blood VENOUS LINE / Unknown IVAD (Port) / Unknown 06/17/2024 6:16 AM CLINICAL COORDINATOR 06/17/2024 6:27 AM CLINICAL COORDINATOR us Drake Nina MD LAB - BLOOD ORDERABLES Final Result Performing Organization Address [facility] Co de Phone Number LABORATORY [facility] [place] Core Lab [address] [facility], [address] [phone] * Iron and iron binding capacity (06/17/2024 6:16 AM CLINICAL COORDINATOR) Iron 123 37 - 145 ug/dL 06/17/2024 10:02 AM CLINICAL COORDINATOR [facility] Iron Binding Capacity 06/17/2024 10:02 AM CLINICAL COORDINATOR [facility] Comment:Unable to calculate: UIBC or Iron value is outside detectable level. Iron Sat Index 06/17/2024 10:02 AM CLINICAL COORDINATOR [facility] Comment:Unable to calculate: UIBC or Iron value is outside detectable level. Blood VENOUS LINE / Unknown IVAD (Port) / Unknown 06/17/2024 6:16 AM CLINICAL COORDINATOR 06/17/2024 6:27 AM CLINICAL COORDINATOR us rDake Nina MD LAB - BLOOD ORDERABLES Final Result Performing Organization Address City/[facility]/ZIP Co de Phone Number LABORATORY [facility] [place] Core Lab [address] [facility], [address] [phone] * (ABNORMAL) Prolactin (06/16/2024 5:37 PM CLINICAL COORDINATOR) Prolactin 55(H) 5 - 23 ng/mL 06/16/2024 6:24 PM CLINICAL COORDINATOR [facility] Blood BLOOD SPECIMEN / Unknown Venipuncture / Unknown 06/16/2024 5:37 PM CLINICAL COORDINATOR 06/16/2024 5:46 PM CLINICAL COORDINATOR Varghesegiulia Schofield MD LAB - BLOOD ORDERABLE S Final Result [facility] [place] [place] [facility] [address] [facility], [address] [place] [address] * Blood Culture Peripheral Blood (06/16/2024 5:37 PM CLINICAL COORDINATOR) Only the most recent of3 resultswithin the time period is included. Culture No Growth 06/21/2024 6:47 PM CLINICAL COORDINATOR [facility] Blood BLOOD SPECIMEN / Unknown Venipuncture / Unknown 06/16/2024 5:37 PM CLINICAL COORDINATOR 06/16/2024 5:47 PM CLINICAL COORDINATOR Abimael Schofield MD LAB - MICRO GENERAL O RDERABLES Final Result [facility] Inf. Diseases Diag. Lab [address] [facility], [address] [place] [address] * XR Chest Port 1 View (06/14/2024 8:46 AM CLINICAL COORDINATOR) Anatomical Region Laterality Modality Chest Digital Radiogra phy Impressions 06/14/2024 8:59 AM CLINICAL COORDINATOR Impression: Further increase in ill-defined opacity projecting over the right lower lung concerning for pneumonia. MARIO ALBERTO BLACKWOOD MD Narrative 06/14/2024 8:59 AM CLINICAL COORDINATOR Exam: XR CHEST PORT 1 VIEW, [...] concerning for pneumonia. MARIO ALBERTO BLACKWOOD MD [facility] Marly Allen MD IMG DIAGNOSTIC IM AGING ORDERABLES Final Result * Respiratory Panel PCR (06/12/2024 9:34 PM CLINICAL COORDINATOR) Adenovirus Not Detected Not Detected 06/12/2024 11:53 PM CLINICAL COORDINATOR [facility] Coronavirus Not Detected Not Detected 06/12/2024 11:53 PM CLINICAL COORDINATOR [facility] Comment:This test detects Co ronavirus 229E, HKU1, NL63 and OC43 but does not distinguish between them. It does not detect MERS ( Respiratory Syndrome), SARS (Severe Acute Respiratory Syndrome) or 2019-nCoV (Novel 2019) Coronavirus. Human Metapneumovirus Not Detected Not Detected 06/12/2024 11:53 PM CLINICAL COORDINATOR [facility] Human Rhin/Enterovirus Not Detected Not Detected 06/12/2024 11:53 PM CLINICAL COORDINATOR [facility] Influenza A Not Detected Not Detected 06/12/2024 11:53 PM CLINICAL COORDINATOR [facility] Influenza A, H1 Not Detected Not Detected 06/12/2024 11:53 PM CLINICAL COORDINATOR [facility] Influenza A 2009 H1N1 Not Detected Not Detected 06/12/2024 11:53 PM CLINICAL COORDINATOR [facility] Influenza A, H3 Not Detected Not Detected 06/12/2024 11:53 PM CLINICAL COORDINATOR [facility] Influenza B Not Detected Not Detected 06/12/2024 11:53 PM CLINICAL COORDINATOR [facility] Parainfluenza Virus 1 Not Detected Not Detected 06/12/2024 11:53 PM CLINICAL COORDINATOR [facility] Parainfluenza Virus 2 Not Detected Not Detected 06/12/2024 11:53 PM CLINICAL COORDINATOR [facility] Parainfluenza Virus 3 Not Detected Not Detected 06/12/2024 11:53 PM CLINICAL COORDINATOR [facility] Parainfluenza Virus 4 Not Detected Not Detected 06/12/2024 11:53 PM CLINICAL COORDINATOR [facility] Respiratory Syncytial Virus A Not Detected Not Detected 06/12/2024 11:53 PM CLINICAL COORDINATOR [facility] Respiratory Syncytial Virus B Not Detected Not Detected 06/12/2024 11:53 PM CLINICAL COORDINATOR [facility] Chlamydia Pneumoniae Not Detected Not Detected 06/12/2024 11:53 PM CLINICAL COORDINATOR [facility] Mycoplasma Pneumoniae Not Detected Not Detected 06/12/2024 11:53 PM CLINICAL COORDINATOR [facility] Swab NASOPHARYNGEAL STRUCTURE / Unknown Non-blood Collection / Unknown 06/12/2024 9:34 PM CLINICAL COORDINATOR 06/12/2024 9:47 PM CLINICAL COORDINATOR Narrative [facility] - 06/12/2024 11:53 PM CLINICAL COORDINATOR The ePlex Respiratory Panel is a qualitative nucleic acid, multiplex, in vitro diagnostic test for the simultaneous detection and identification of multiple respiratory viral and bacterial nucleic acids in nasopharyngeal swabs collected in viral transport media from individual exhibiting signs and symptoms of respiratory infection. The assay has received FDA approval for the testing of nasopharyngeal (BAG MACHINE OPERATOR) swabs only. This test is used for clinical purposes and should not be regarded as investigational or for research. This laboratory is certified under the Clinical Laboratory Improvement Amendments of 1988 (CLIA-88) as qualified to perform high complexity clinical laboratory testing. us Abdelrahman Goddard MD LAB - MICRO GENERAL ORDERABLES Final Result [facility] Inf. Diseases Diag. Lab [address] [facility], [address] [place] [address], [facility] * (ABNORMAL) Blood gas venous (06/12/2024 7:17 PM CLINICAL COORDINATOR) pH Venous 7.38 7.32 - 7.43 06/12/2024 7:40 PM CLINICAL COORDINATOR [facility] pCO2 Venous 42 40 - 50 mm Hg 06/12/2024 7:40 PM CLINICAL COORDINATOR [facility] pO2 Venous 35 25 - 47 mm Hg 06/12/2024 7:40 PM CLINICAL COORDINATOR [facility] Bicarbonate Venous 24 21 - 28 mmol/L 06/12/2024 7:40 PM CLINICAL COORDINATOR [facility] Base Excess/Deficit Venous -0.9 -3.0 - 3.0 mmol/L 06/12/2024 7:40 PM CLINICAL COORDINATOR [facility] FIO2 21 JARET 06/12/2024 7:40 PM CLINICAL COORDINATOR [facility] Oxyhemoglobin Venous 61(L) 70 - 75 % 06/12/2024 7:40 PM CLINICAL COORDINATOR [facility] O2 Sat, Venous 63.9(L) 70.0 - 75.0 % 06/12/2024 7:40 PM CLINICAL COORDINATOR [facility] Blood, venous VENOUS LINE / Unknown Venipuncture / Unknown 06/12/2024 7:17 PM CLINICAL COORDINATOR 06/12/2024 7:30 PM CLINICAL COORDINATOR Narrative [facility] - 06/12/2024 7:40 PM CLINICAL COORDINATOR In healthy individuals, oxyhemoglobin (O2Hb) and oxygen saturation (SO2) are approximately equal. In the presence of dyshemoglobins, oxyhemoglobin can be considerably lower than oxygen saturation. us Abdelrahman Goddard MD LAB - BLOOD ORDERABLES Final R esult [facility] [place] [facility] [address] [facility], [address] [place] [phone] * ECG 12-LEAD WITH MUSE (LHE) (06/11/2024 9:04 PM CLINICAL COORDINATOR) Only the most recent of14 resultswithin the time period is included. Systolic Blood Pressure mmHg RADIOLOGY RESULTS Diastolic Blood Pressure mmHg RADIOLOGY RESULTS Ventricular Rate 102 BPM RAD IOLOGY RESULTS Atrial Rate 102 BPM RADIOLOG Y RESULTS TX Interval 158 ms RADIOLOG Y RESULTS QRS Duration 78 ms RADIOLO GY RESULTS QT 348 ms RADIOLOGY RESULTS QTc 453 ms RADIOLOGY RESULTS P Montgomery 39 degrees RADIOLOGY RESULTS R AXIS 66 degrees RADIOLOGY RESULTS T Montgomery 33 degrees RADIOLOGY RESULTS Interpretation ECG Sinus tachycardia Nonspecific T wave abnormality Abnormal ECG When compared with ECG of 05-Jun-2024 11:40, No significant change was found Confirmed by SEE ED PROVIDER NOTE FOR, ECG INTERPRETATION (4000), visual effects editor SELMA GARRISON ([id number]) on 06/11/2024 9:05:27 PM RADIOLOGY RESULTS 06/11/2024 9:04 PM CLINICAL COORDINATOR 06/11/2024 9:05 PM CLINICAL COORDINATOR us Deshawn Arredondo MD ECG ORDERABLES Edited Resu lt - Final RADIOLOGY RESULTS * HGB Eval Reflex to ELP or RBC Solubility (05/29/2024 11:23 AM CLINICAL COORDINATOR) Alpha Globin (HBA1 and HBA2) DD Bill Billed 05/31/2024 2:46 PM CLINICAL COORDINATOR [facility] Comment: Performed By: [employer] [address] [place] [address] Risk Assessment Consultant: Devon Healy MD, PhD CLIA Number: [id number] Blood VENOUS LINE / Unknown IVAD (Port) / Unknown 05/29/2024 11:23 AM CLINICAL COORDINATOR 05/29/2024 11:30 AM CLINICAL COORDINATOR us Case Samuel MD LAB CHARGE PERFORMABLES F inal Result Performing Organization Address City/[facility] Co de Phone Number [facility] [employer] [address] [place] [phone] [phone] * Bill Only- Sickle Solubility Bill (05/29/2024 11:23 AM CLINICAL COORDINATOR) Sickle Solubility Reflex Bill Billed 05/31/2024 2:46 PM CLINICAL COORDINATOR [facility] Comment: Performed By: [facility] [address] [place] [address] Risk Assessment Consultant: Devon Healy MD, PhD CLIA Number: [id number] Blood VENOUS LINE / Unknown IVAD (Port) / Unknown 05/29/2024 11:23 AM CLINICAL COORDINATOR 05/29/2024 11:30 AM CLINICAL COORDINATOR us Case Samuel MD LAB CHARGE PERFORMABLES F inal Result [facility] [employer] [facility] [address] [place] [address], [facility] [phone] * Genotype Red Blood Cell (05/29/2024 11:23 AM CLINICAL COORDINATOR) [facility] See Scanned Result GENOTYPE RED BLOOD CELL-Scanned 05/31/2024 10:16 AM CLINICAL COORDINATOR [facility] Blood VENOUS LINE / Unknown IVAD (Port) / Unknown 05/29/2024 11:23 AM CLINICAL COORDINATOR 05/29/2024 11:29 AM CLINICAL COORDINATOR us Case Samuel MD LAB - BLOOD ORDERABLES Fi nal Result Performing Organization Address City/[facility]/ZIP Co de Phone Number [facility] Blood [facility] [address] [place] [address], [facility] [phone] * (ABNORMAL) HGB Eval Reflex to ELP or RBC Solubility (05/29/2024 11:23 AM CLINICAL COORDINATOR) [facility] Hemoglobin A 15.0(L) 95.0 - 97.9 % 05/31/2024 2:46 PM CLINICAL COORDINATOR [facility] Hemoglobin A2 3.0 2.0 - 3.5 % 05/31/2024 2:46 PM CLINICAL COORDINATOR [facility] Hemoglobin F 10.8(H) 0.0 - 2.1 % 05/31/2024 2:46 PM CLINICAL COORDINATOR [facility] Hemoglobin S 71.2(H) 0.0 - 0.0 % 05/31/2024 2:46 PM CLINICAL COORDINATOR [facility] Hemoglobin C 0.0 0.0 - 0.0 % 05/31/2024 2:46 PM CLINICAL COORDINATOR [facility] Hemoglobin E 0.0 0.0 - 0.0 % 05/31/2024 2:46 PM CLINICAL COORDINATOR [facility] Hemoglobin - Other 0.0 0.0 - 0.0 % 05/31/2024 2:46 PM CLINICAL COORDINATOR [facility] Hemoglobin Evaluation See Note 05/31/2024 2:46 PM CLINICAL COORDINATOR [employer] Comment: Impression: Hb S present Laboratory findings [...] by Alpha Globin (HBA1 and HBA2) Deletion/Duplication ([employer] test #8161219) should be considered. Hb S/beta-plus thalassemia is typically characterized by more Hb S than Hb A with the presence of microcytosis. If microcytosis is present and Hb S/beta-plus thalassemia is suspected, Beta Globin (HBB) Sequencing ([employer] test #3911739) is suggested. Hemoglobin analysis should be offered [...] developed and its performance characteristics determined by [employer]. It has not been cleared or approved by the U.S. Food and Drug Administration. This test was performed in a CLIA-certified laboratory and is intended for clinical purposes. Sickle Cell Solubility Reflex Positive(A) 05/31/2024 2:46 PM [employer] Comment: INTERPRETIVE INFORMATION: Sickle Cell Solubility Reflex Not Performed: Solubility testing for Hemoglobin S not indicated. 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 Additional charges apply. Conf Previous: Positive for Hemoglobin S by HPLC. Solubility testing performed previously and not repeated with this submission. Hgb Capillary Electrophoresis Reflex Performed 05/31/2024 2:46 PM CLINICAL COORDINATOR [employer] Comment: INTERPRETIVE INFORMATION: Hgb Capillary Electrophoresis Reflex Not Performed: Confirmation by Capillary Electrophoresis not indicated. Performed: Results confirmed by Capillary Electrophoresis. Additional charges apply. Conf Previous: Capillary Electrophoresis confirmation performed as part of a previous submission. Confirmation not repeated with this submission. Performed By: [employer] [address] [place] [address] Risk Assessment Consultant: Devon Healy MD, PhD CLIA Number: [id number] Blood VENOUS LINE / Unknown IVAD (Port) / Unknown 05/29/2024 11:23 AM CLINICAL COORDINATOR 05/29/2024 11:30 AM CLINICAL COORDINATOR Case Samuel MD LAB - BLOOD ORDERABLES Fi nal Result Performing Organization Address City/[facility]/ZIP Co de Phone Number [employer] [address] [place] [address], [facility] [phone] * (ABNORMAL) Ferritin (05/29/2024 11:23 AM CLINICAL COORDINATOR) Ferritin 1,559(H) 6 - 175 ng/mL 05/29/2024 12:43 PM CLINICAL COORDINATOR [facility] Blood VENOUS LINE / Unknown IVAD (Port) / Unknown 05/29/2024 11:23 AM CLINICAL COORDINATOR 05/29/2024 11:29 AM CLINICAL COORDINATOR Case Samuel MD LAB - BLOOD ORDERABLES Fi nal Result [facility] [address] 1[address] [place] [address] * Urine Culture (05/29/2024 11:23 AM CLINICAL COORDINATOR) Culture <10,000 CFU/mL Mixture of Urogenital Vickie 05/30/2024 9:45 AM CLINICAL COORDINATOR [facility] Urine URINE SPECIMEN OBTAINED BY CLEAN CATCH PROCEDURE / Unknown Non-blood Collection / Unknown 05/29/2024 11:23 AM CLINICAL COORDINATOR 05/29/2024 11:41 AM CLINICAL COORDINATOR Case Samuel MD LAB - MICRO GENERAL ORDER SYD Final Result [facility] Inf. Diseases Diag. Lab [address] [facility], [address] [place] [address] * (ABNORMAL) Manual Differential (05/29/2024 12:53 AM CLINICAL COORDINATOR) Only the most recent of7 resultswithin the time period is included. % Neutrophils 54 % JARET 05/29/2024 1:[address] [facility] % Lymphocytes 34 % JARET 05/29/2024 1:[address] [facility] % Monocytes 10 % JARET 05/29/2024 1:[address] [facility] % Eosinophils 1 % JARET 05/29/2024 1:[address] [facility] % Basophils 1 % JARET 05/29/2024 1:[address] [facility] Absolute Neutrophils 8.4(H) 1.6 - 8.3 10e3/uL JARET 05/29/2024 1:[address] [facility] Absolute Lymphocytes 5.3 0.8 - 5.3 10e3/uL JARET 05/29/2024 1:[address] [facility] Absolute Monocytes 1.6(H) 0.0 - 1.3 10e3/uL JARET 05/29/2024 1:[address] [facility] Absolute Eosinophils 0.2 0.0 - 0.7 10e3/uL JARET 05/29/2024 1:[address] [facility] Absolute Basophils 0.2 0.0 - 0.2 10e3/uL JARET 05/29/2024 1:[address] [facility] NRBCs per 100 WBC 3 % JARET 05/29/2024 1:[address] [facility] Absolute NRBCs 0.5 10e3/uL JARET 05/29/2024 1:[address] [facility] RBC Morphology Confirmed RBC Indices JARET 05/29/2024 1:[address] [facility] Platelet Assessment Automated Count Confirmed. Platelet morphology is normal. Automated Count Confirmed. Platelet morphology is normal. JARET 05/29/2024 1:[address] [facility] Polychromasia Moderate(A) None Seen JARET 05/29/2024 1:[address] [facility] Sickle Cells Moderate(A) None Seen JARET 05/29/2024 1:58 AM CLINICAL COORDINATOR [facility] Blood VENOUS LINE / Unknown Venipuncture / Unknown 05/29/2024 12:53 AM CLINICAL COORDINATOR 05/29/2024 12:58 AM CLINICAL COORDINATOR us Lenin Smith MD LAB - BLOOD ORDERABLES Final Result [facility] [address] [facility] [place] [address], [facility] * IR Procedure Note (05/25/2024 2:54 PM CLINICAL COORDINATOR) Narrative Myron Michel MD - 05/25/2024 2:54 PM CLINICAL COORDINATOR Myron Michel MD 05/25/2024 2:55 PM [facility] Procedure: IR Procedure Note Date/Time: 05/25/2024 [...] the procedure a time out was called Chamberlain Protocol: the Joint Commission Chamberlain Protocol was followed Preparation: Patient was prepped and draped in usual sterile fashion ANESTHESIA Anesthesia: Local infiltration Local Anesthetic: Lidocaine 1% without epinephrine SEDATION Patient Sedated: Yes Sedation Type: Moderate (conscious) sedation Sedation: Fentanyl and midazolam Vital signs: Vital signs monitored during sedation See dictated procedure note for full details. Findings: Successful bilateral port placement apheresis on the right, 6 russian smart port on the left Specimens: none Procedural Complications: None Condition: Stable Plan: 1 hour bedrest then okay to discharge PROCEDURE Describe Procedure: Successful bilateral port placement apheresis on the right, 6 russian smart port on the left Patient Tolerance: Patient tolerated the procedure well with no immediate complications Length of time physician/provider present for 1:1 monitoring during sedation: 83-97 min us Myron Michel MD PROCEDURE/MINOR SURGICAL ORDERA BLES Final Result * IR Chest Port Placement > 5 Yrs of Age (05/25/2024 2:47 PM CLINICAL COORDINATOR) Only the most recent of2 resultswithin the time period is included. Anatomical Region Laterality Modality Chest Radio Fluoroscop y Impressions 05/25/2024 5:26 PM CLINICAL COORDINATOR IMPRESSION: Insertion of right-sided apheresis chest port, [...] mg Versed Sedation time: 97 minutes ATTENDING [id number] SEDATION TIME: less than 5 minutes. Access [...] placed: BD PowerFlow apheresis port Catheter size (Malaysian): 9.6 Lumens: Single-lumen Power injectable: Yes Catheter [...] JASWINDER COOPER MD Narrative 05/25/2024 5:26 PM CLINICAL COORDINATOR PROCEDURE: Venous port placement Procedural Personnel Attending [...] mg Versed Sedation time: 97 minutes ATTENDING [id number] SEDATION TIME: less than 5 minutes. Access [...] placed: BD PowerFlow apheresis port Catheter size (Malaysian): 9.6 Lumens: Single-lumen Power injectable: Yes Catheter [...] * HCG qualitative urine (05/25/2024 12:03 PM CLINICAL COORDINATOR) Only the most recent of2 resultswithin the time period is included. hCG Urine Qualitative Negative Negative JARET 05/25/2024 12:34 PM CLINICAL COORDINATOR [facility] Comment:This test is for scr eening purposes. Results should be interpreted along with the clinical picture. Confirmation testing is available if warranted by ordering [id number], HCG Quantitative . Urine MID-STREAM URINE SPECIMEN / Unknown Non-blood Collection / Unknown 05/25/2024 12:03 PM CLINICAL COORDINATOR 05/25/2024 12:19 PM CLINICAL COORDINATOR Jaswinder Cooper MD LAB - URINE ORDERABLES Liss l Result LABORATORY [facility] [place] [facility] [address] [facility], [address] [place] [address], [facility] * N terminal pro BNP outpatient (05/23/2024 9:02 PM CLINICAL COORDINATOR) N Terminal Pro BNP Outpatient 74 0 - 450 pg/mL 05/23/2024 9:39 PM CLINICAL COORDINATOR [facility] Comment: Reference range shown and [...] Unknown Venipuncture / Unknown 05/23/2024 9:02 PM CLINICAL COORDINATOR 05/23/2024 9:10 PM CLINICAL COORDINATOR Marilia Summers MD LAB - BLOOD ORDERABLES Final Result Performing Organization Address City/[facility]/ZIP Co de Phone Number [facility] [place] [address], [facility] * (ABNORMAL) CK total (05/19/2024 3:05 AM CLINICAL COORDINATOR) CK 240(H) 26 - 192 U/L 05/19/2024 3:37 AM CLINICAL COORDINATOR [facility] Blood VENOUS LINE / Unknown Venipuncture / Unknown 05/19/2024 3:05 AM CLINICAL COORDINATOR 05/19/2024 3:18 AM CLINICAL COORDINATOR Marilia Summers MD LAB - BLOOD ORDERABLES Final Result [facility] [address] [facility] [facility], [facility] * (ABNORMAL) Vitamin D deficiency screening (04/28/2024 1:50 AM CLINICAL COORDINATOR) Vitamin D, Total (25-Hydroxy) 8(L) 20 - 50 ng/mL 05/01/2024 6:42 PM CLINICAL COORDINATOR [facility] Comment:severe deficiency Blood BLOOD SPECIMEN / Unknown Venipuncture / Unknown 04/28/2024 1:50 AM CLINICAL COORDINATOR 04/28/2024 1:53 AM CLINICAL COORDINATOR Narrative [facility] - 05/01/2024 6:42 PM CLINICAL COORDINATOR Season, race, dietary intake, and treatment affect the concentration of 62-idfxptg-Cqwueau D. Values may decrease during winter months and increase during summer months. Vitamin D determination is routinely performed by an immunoassay specific for 25 hydroxyvitamin D3. If an individual is on vitamin D2(ergocalciferol) supplementation, please specify 25 OH vitamin D2 and D3 level determination by LCMSMS test VITD23. us Case Samuel MD LAB - BLOOD ORDERABLES Fi nal Result U LABORATORY [facility] [place] [facility] [address] [facility], [address] [place] [address] * CT Pelvis Bone wo Contrast (04/19/2024 3:22 AM CLINICAL COORDINATOR) Anatomical Region Laterality Modality Abdomen/Pelvis, SUBRAD CT MS K, UMP CT ABDOMEN PELVIS, SUBRAD CT BODY, RAD CT Computed Tomography 04/19/2024 3:22 AM CLINICAL COORDINATOR Impressions 04/19/2024 4:06 AM CLINICAL COORDINATOR IMPRESSION: 1. Sclerosis involving the left femoral [...] right femoral head. Narrative 04/19/2024 4:06 AM CLINICAL COORDINATOR EXAM: CT PELVIS BONE WO CONTRAST LOCATION: [facility] DATE: 04/19/2024 INDICATION: Eval L hip [...] EXAM: CT PELVIS BONE WO CONTRAST LOCATION: [facility] DATE: 04/19/2024 INDICATION: Eval L hip [...] Extra Red Top Tube (04/08/2024 10:22 PM CLINICAL COORDINATOR) Hold Specimen [facility] 04/08/2024 11:31 PM CLINICAL COORDINATOR [facility] Blood STRUCTURE OF LEFT UPPER LIMB / Unknown Venipuncture / Unknown 04/08/2024 10:22 PM CLINICAL COORDINATOR 04/08/2024 10:30 PM CLINICAL COORDINATOR Deshawn Arredondo MD LAB - BLOOD ORDERABLES Liss l Result Performing Organization Address City/[facility]/ZIP Co de Phone Number [facility] [address] [facility] [address] [place], [place] [id number] [place] [address] * Extra Blue Top Tube (04/08/2024 10:22 PM CLINICAL COORDINATOR) Hold Specimen [facility] 04/08/2024 11:31 PM CLINICAL COORDINATOR [facility] Blood STRUCTURE OF LEFT UPPER LIMB / Unknown Venipuncture / Unknown 04/08/2024 10:22 PM CLINICAL COORDINATOR 04/08/2024 10:30 PM CLINICAL COORDINATOR Deshawn Arredondo MD LAB - BLOOD ORDERABLES Liss l Result Performing Organization Address City/[facility]/ZIP Co de Phone Number [facility] [address] [place] [address], [facility] from Last 3 Months Insurance [place] [id number] [place] [id number] [place] Advance Directives For more information, please contact: [phone] * Full Code (Latest Code Status on [...] continue PREVIOUSLY ORDERED code status Care Teams Assistant At Surgery Relationship Specialty Start Date End Date Veronica Joseph MD [address] [place] [address] PCP - General Family Medicine 06/18/24 Mor Ramsey Medical Student 04/03/24 Case Samuel MD [address] [place] [address] [address] [place] [address] Assigned Pediatric Specialist Provider 05/18/24 Juhi Benson, RN Specialty Car Audio Installer Hematology & Oncology 05/29/24
--- OUTSIDE RECORDS SUMMARY | 2024-06-30 23:58 | XMS_ITS | Encounter Summary ---
Author Organization [facility] Address [address] [place] [address]. [place] [address] Care Team Providers Care Corporate Strategy Intern Name Role Phone Roxy Mor Unavailable Unavailable Case Samuel MD Unavailable [phone] Juhi Benson RN Unavailable Unavailable Veronica Joseph MD Primary Care Provider [phone] Encounter Details Date Type Department Care Team [...] an overnight care home, or couch-surfing.) Yes 06/20/2024 Are you [...] on file Legal Sex Female 8:25 AM PROPERTY PRESERVATION SPECIALIST Gender Identity Not on file Sexual Orientation Not on file documented as of this encounter Plan of Treatment Upcoming Encounters Date Type Department Care Team (Late st Contact Info) Description 07/10/2024 11:30 AM CDT Oncology Visit [facility] [address] [place] [address] Case Samuel MD [address] [place] [address], [address] [place], [place] [address] documented as of this encounter Goals Goal Patient Goal Type Associated Problems Recent Progress Patient-Stated? Author Pain Management General On track( 025 12:40 PM PROPERTY PRESERVATION SPECIALIST) Yes Juhi Benson RN Note: Goal Statement: [...] filedocumented in this encounter Care Teams Corporate Strategy Intern Relationship Specialty Start Date End Date Veronica Joseph MD [address] [place] [address] PCP - General Family Medicine 06/18/24 Mor Ramsey Medical Student 04/03/24 Case Samuel MD [address] [place] [address], [address] [place] [address] Assigned Pediatric Specialist Provider 05/18/24 Juhi Benson, RN Specialty Linux Systems Engineer Hematology & Oncology 05/29/24 documented as of this encounter
[2024-07-01 00:03] LABS: Hemoglobin* 7.7 gm/dL (12.0-16.0)
[2024-07-01] MEDS: HYDROmorphone 0.5 mg/0.5 ml inj 2 MG IVP ×2 (00:20→01:06)
[2024-07-01 00:53] LABS: Slide Review Reflex No
[2024-07-01 01:02] VITALS: BP 111/73; PULSE 107; RESP 16; O2SAT 99
[2024-07-01 01:08] VITALS: O2SAT 99
[2024-07-01] MEDS: HEPARIN 500 UNIT/5 ML SYRINGE IVF (01:18)
== END 2024-07-01 01:28 | disposition home or self-care (01) ==
PROVIDERS: Emergency Provider Emergency Medicine
DX: D57.00 Hb-SS disease with crisis, unspecified (principal)
CPT/HCPCS: 36415; 85025; 94761; 96361; 96374; 96375; 96376; 99283; 99284; J1171; J1200; J1642; J7120

== ENCOUNTER 2024-07-03 20:27 | Emergency (ER) | payer BC, SELFPAY ==
--- OUTSIDE RECORDS SUMMARY | 2024-07-03 20:30 | XMS_ITS | Clinical Summary ---
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 10 Tablet 5 2:58 PM [employer] [facility] 04/27/19 25 Active folic acid 1 mg tablet Take 1 tablet (1 mg) by mouth daily. 30 Tablet 5 1:41 PM [employer] [facility] 05/01/19 25 Active hydroxyurea (HYDREA) 500 mg capsule Take 2 capsules (1,000 mg) by mouth 2 times daily 120 Capsule 05/01/19 25 Active multivitamin with folic acid 0.4 mg (Thera) Take 1 tablet by mouth daily. 30 Tablet 11 5 10:39 AM [employer] [facility] 05/01/19 25 Active amoxicillin-clavul anate (AUGMENTIN) 875-125 mg tablet Take 1 tablet by mouth 2 times daily for 7 days. 14 Tablet 5 10:39 AM [employer] [facility] 05/08/19 25 Active doxycycline hyclate 100 mg capsule Take 1 capsule (100 mg) by mouth 2 times daily for 7 days. 14 Capsule 5 10:39 AM [employer] [facility] 05/08/19 25 Active HYDROmorphone 4 mg tablet Take 1 Tablet (4 mg) by mouth every 6 hours if needed for severe pain. 30 Tablet 5 1:04 PM [employer] [facility] 05/09/19 25 Active FLUoxetine (PROZAC) 10 mg capsule Take 1 capsule (10 mg) by mouth daily. 40 Capsule 1 5 3:26 PM [employer] [facility] 05/29/19 25 Active naloxone (NARCAN) 4 mg/actuation nasal spray [place] 1 spray (4 mg) into one nostril [...] times daily. 178 Tablet 5 3:59 PM [employer] [facility] 06/30/19 25 025 Active HYDROmorphone 2 mg tablet Take 2 tablets (4 mg) by mouth every 6 hours as needed for severe pain. 40 Tablet 5 3:59 PM [employer] [facility] 06/30/19 25 Active HYDROmorphone 2 mg tablet Take 2 tablets (4 mg) by mouth every 6 hours as needed for severe pain. 40 Tablet 5 3:26 PM [employer] [facility] 05/29/19 25 025 Discontin ued(Reord er (E-cancel not sent)) HYDROmorphone 2 mg tablet Take 2 tablets (4 mg) by mouth every 6 hours as needed for severe pain. 40 Tablet 5 4:27 PM [employer] [facility] 06/07/19 25 025 Discontin ued(Reord er (E-cancel not sent)) HYDROmorphone 2 mg tablet Take 2 tablets (4 mg) by mouth every 6 hours as needed for severe pain. 40 Tablet 5 11:11 AM [employer] [facility] 06/15/19 25 025 Discontin ued(Reord er (E-cancel [...] Department Care Team Description 06/11/2024 1:08 AM [employer] - 06/11/2024 3:57 AM [facility] Emergency [address] [address] Juan Kunz, DO Sickle cell pain crisis (HC) (Primary Dx) Discharge Disposition: Home Self Care 06/11/2024 Travel 06/06/2024 Refill [facility] [address] [place] [address] Veronica Joseph MD Refill Request 06/03/2024 11:37 AM [employer] [facility] - 06/03/2024 2:[address] [address] Ben Swan MD Viral syndrome (Primary Dx) Discharge Disposition: Home Self Care 06/03/2024 Travel 05/29/2024 1:53 PM [employer] [facility] - 05/29/2024 2:[address] [address] Ana Pacheco MD Sickle cell pain crisis (HC) (Primary Dx) Discharge Disposition: Home Self Care 05/29/2024 Travel 05/21/2024 10:35 AM [employer] [facility] - 05/21/2024 2:[address] [address] Juliana Gil, Sickle cell disease with crisis (HC) (Primary Dx); Diffuse pain Discharge Disposition: Home Self Care 05/21/2024 Travel 05/18/2024 2:12 AM [facility] [facility] - 05/18/2024 4:[address] [address] Onesimo Gaviria MD Sickle cell pain crisis (HC) (Primary Dx) Discharge Disposition: Home Self Care 05/18/2024 Travel 05/17/2024 Telephone [facility] [address] [place] [address] Veronica Joseph MD Questions (HEALTH STATUS ) 05/10/2024 Telephone [facility] [address] [place] [address] Veronica Joseph MD Follow Up 05/07/2024 5:53 PM [employer] [facility] - 05/07/2024 8:[address] [address] Caryn Downs MD Sickle cell anemia with pain (HC) (Primary Dx); RUQ abdominal pain Discharge Disposition: Home Self Care 05/07/2024 Travel 05/03/2024 10:59 PM [facility] - 05/04/2024 2:[address] [address] Anika Mccracken MD Discharge Disposition: Home Self Care 05/03/2024 Travel 05/02/2024 10:15 AM [facility] [facility] - 05/02/2024 12:[address] [address] Juan Kunz DO Sickle cell pain crisis (HC) (Primary Dx) Discharge Disposition: Home Self Care 05/02/2024 Travel 04/27/2024 Telephone [facility] [address] [place] [address] Veronica Joseph MD 04/27/2024 Refill [facility] [address] [place] [address] Veronica Joseph MD Refill Request (HYDROmorphone 4 mg tablet ) 04/24/2024 1:31 AM [facility] [facility] - 04/24/2024 4:[address] [address] Onesimo Gaviria MD Sickle cell pain crisis (HC) (Primary Dx); Community acquired pneumonia, unspecified laterality Discharge Disposition: Home Self Care 04/24/2024 Refill [facility] [address] [place] [address] Veronica Joseph MD Refill Request (HYDROmorphone 4 mg tablet ) 04/24/2024 Travel 04/22/2024 1:40 PM [employer] [facility] - 04/22/2024 5:[address] [address] Shauna Flaherty PA Sickle cell pain crisis (HC) (Primary Dx) Discharge Disposition: Home Self Care 04/22/2024 Travel 04/20/2024 3:40 PM [employer] [facility] - 04/20/2024 6:[address] [address] Maria Teresa Haider PA Left hip pain (Primary Dx) Discharge Disposition: Home Self Care 04/20/2024 Travel 04/20/2024 Telephone [facility] [address] [place] [address] Veronica Joseph MD 04/20/2024 Refill [facility] [address] [place] [address] Veronica Joseph MD Refill Request (HYDROmorphone 4 mg tablet) 04/19/2024 7:18 PM [employer] [facility] - 04/19/2024 9:[address] [address] Maria Teresa Haider PA Closed right hip fracture, initial encounter (HC) (Primary Dx); Avascular necrosis of bone of right hip (HC); Sickle cell pain crisis (HC) Discharge Disposition: Home Self Care 04/19/2024 Travel 04/18/2024 3:51 AM [employer] [facility] - 04/18/2024 5:[address] [address] Elizabeth Duffy MD Left hip pain (Primary Dx); Sickle cell disease with crisis (HC) Discharge Disposition: Home Self Care 04/17/2024 10:36 AM [employer] [facility] - 04/17/2024 12:36 PM [facility] [address] [address] Juhi Hull PA Left hip pain (Primary Dx); Sickle cell pain crisis (HC) Discharge Disposition: Home Self Care 04/17/2024 Travel 04/15/2024 5:33 PM [employer] [facility] - 04/15/2024 10:[address] [address] Kathy Contreras MD Sickle cell pain crisis (HC) (Primary Dx) Discharge Disposition: Home Self Care 04/15/2024 Travel 04/11/2024 9:55 AM [facility] Office Visit [facility] [address] [place] [address] Veronica Joseph MD Follow Up (Sickle Cell) 04/11/2024 Travel 04/08/2024 6:17 PM [employer] [facility] - 04/08/2024 8:[address] [address] Ana Pacheco MD Sickle cell pain crisis (HC) (Primary Dx) Discharge Disposition: Home Self Care 04/08/2024 Travel 04/06/2024 8:27 PM [employer] [facility] - 04/06/2024 10:[address] [address] Tanmay Olivares PA Biliary colic (Primary Dx) Discharge Disposition: Home Self Care 04/06/2024 Travel 04/04/2024 6:29 PM [employer] [facility] - 04/04/2024 10:[address] [address] Juhi Patel PA Sickle cell anemia with pain (HC) (Primary Dx); Opioid use Discharge Disposition: Home Self Care 04/04/2024 Travel from Last 3 Months Immunizations Immunization Administration Dates Next Due COVID-19 VACCINE SPIKEVAX [...] on file Legal Sex Female 8:18 PM [employer] [facility] Gender Identity Not on file Sexual Orientation Not on file Obstetrics History Last Filed Vital Signs Vital Sign Reading Time Taken Comments Blood Pressure 121/73 06/11/2024 3:30 AM [employer] [facility] Pulse 93 06/11/2024 3:30 AM [employer] [facility] Temperature 36.6 C (97.9 F) 06/11/2024 1:12 AM [facility] Respiratory Rate 18 06/11/2024 3:00 AM [employer] [facility] Oxygen Saturation 95% 06/11/2024 3:30 AM [facility] Inhaled Oxygen Concentration - - Weight 51.7 kg (114 lb) 06/11/2024 1:10 AM [employer] [facility] Height 154.9 cm (5' 1) 06/11/2024 1:10 AM [employer] [facility] Body Mass Index 21.54 06/11/2024 1:10 AM [employer] [facility] Plan of Treatment Health Maintenance Due Date Last Done Comments HIV for age 15-65 2009 Hepatitis C screening for ag e 18-79 2012 Pneumococcal series for age 6-49 (1 of 2 - PCV) 2013 Tetanus booster 01/18/2017 01/18/2007 COVID-19 vaccine series (2023- season) 2023 03/26/2023, 05/21/2021, 02/27/2021, Additional history exists Influenza Vaccine (#1) 2023 3, 01/15/2023, 03/14/2020, Additional history exists Pap test for age 21-65 01/06/2025 2 (Verified in Care Everywhere or Patient Record) BMI (ht and wt on same day) for age 18+ 04/11/2025 04/11/2024 Depression screening for age 12+ 04/11/2025 04/11/20 24 Tdap Completed 01/18/2007 Procedures Procedure Name Priority Date/Time Associated Diagnosis Comments CBC WITH AUTO DIFFERENTIAL STAT 06/03/2024 12:51 PM [facility] [facility] INFLUENZA A/B PCR Today 06/03/2024 12: 51 PM [employer] COVID-19 MOLECULAR Today 06/03/2024 12 :51 PM [employer] BASIC METABOLIC PANEL STAT 06/03/2024 12:51 PM [employer] CBC WITH AUTO DIFFERENTIAL STAT 06/03/2024 12:51 PM [employer] [facility] XR CHEST 2 VIEWS PA AND LATERAL STAT 06/03/2024 12:34 PM [employer] EKG 12 LEAD STAT 06/03/2024 11:48 AM [facility] [facility] HEMOGLOBIN STAT 05/29/2024 2:23 PM [employer] [facility] EKG 12 LEAD STAT 05/29/2024 2:03 PM [employer] [facility] EKG 12 LEAD STAT 05/21/2024 10:19 AM [employer] RED CELL MORPHOLOGY STAT 05/07/2024 6 :20 PM [employer] PLATELET ESTIMATE STAT 05/07/2024 6:2 0 PM [employer] RETICULOCYTES STAT 05/07/2024 6:20 PM [employer] [facility] LIPASE STAT 05/07/2024 6:20 PM [employer] [facility] HEPATIC FUNCTION PANEL STAT 6:20 PM [employer] [facility] BASIC METABOLIC PANEL STAT 05/07/2024 6:20 PM [employer] [facility] CBC W PLT NO DIFF STAT 05/07/2024 6:2 0 [address] [facility] [address] CHEST PE STUDY STAT 05/04/2024 1:4 6 AM [employer] RETICULOCYTES STAT 05/04/2024 12:24 AM [employer] [facility] URINE Today 05/04/2024 12:07 AM [employer] [facility] UA W/ SEDIMENT EXAM REFLEXED PER CRITERIA Today 05/04/2024 12:07 AM [employer] [facility] CWS PATH REVIEW HEMATOLOGY STAT 05/03/2024 11:52 PM [employer] RED CELL MORPHOLOGY STAT 05/03/2024 1 1:52 PM [employer] [facility] PLATELET ESTIMATE STAT 05/03/2024 11: 52 PM [employer] MANUAL DIFFERENTIAL STAT 05/03/2024 1 1:52 PM [employer] CBC WITH AUTO DIFFERENTIAL STAT 05/03/2024 11:52 PM [employer] D-DIMER,QUANTITATIVE STAT 05/03/2024 11:52 PM [facility] HEPATIC FUNCTION PANEL STAT 11:52 PM [facility] [facility] BASIC METABOLIC PANEL STAT 05/03/2024 11:52 PM [facility] [facility] CBC WITH AUTO DIFFERENTIAL STAT 05/03/2024 11:52 PM [facility] [facility] EKG 12 LEAD STAT 05/03/2024 11:48 PM [facility] [facility] INFLUENZA A/B PCR Today 05/02/2024 10: 20 AM [facility] COVID-19 MOLECULAR Today 05/02/2024 10 :20 AM [facility] CBC WITH AUTO DIFFERENTIAL SULEMA 04/24/2024 2:16 AM [employer] RETICULOCYTES Early AM 04/24/2024 2:16 AM [employer] CBC WITH AUTO DIFFERENTIAL SULEMA 04/24/2024 2:16 AM [facility] BASIC METABOLIC PANEL SULEMA 04/24/2024 2:16 AM [facility] [facility] XR CHEST 2 VIEWS PA AND LATERAL STAT 04/24/2024 1:58 AM [facility] EKG 12 LEAD SULEMA 04/24/2024 1:38 AM [facility] [facility] RETICULOCYTES STAT 04/22/2024 2:21 PM [facility] BASIC METABOLIC PANEL STAT 04/22/2024 2:21 PM [employer] CBC W PLT NO DIFF STAT 04/22/2024 2:2 1 PM [employer] [facility] XR CHEST 2 VIEWS PA AND LATERAL STAT 04/22/2024 1:18 PM [facility] [facility] EKG 12 LEAD STAT 04/22/2024 1:06 PM [facility] [facility] TYPE & SCREEN STAT 04/20/2024 4:43 PM [employer] RED CELL MORPHOLOGY STAT 04/20/2024 4 :43 PM [employer] PLATELET ESTIMATE STAT 04/20/2024 4:4 3 PM [employer] MANUAL DIFFERENTIAL STAT 04/20/2024 4 :43 PM [employer] CBC WITH AUTO DIFFERENTIAL STAT 04/20/2024 4:43 PM [employer] RETICULOCYTES STAT 04/20/2024 4:43 PM [employer] CBC WITH AUTO DIFFERENTIAL STAT 04/20/2024 4:43 PM [employer] BASIC METABOLIC PANEL STAT 04/20/2024 4:25 PM [employer] XR ANKLE 3 VIEWS LEFT STAT 04/18/2024 5:09 AM [employer] C-REACTIVE PROTEIN STAT 04/18/2024 4: 59 AM [employer] BASIC METABOLIC PANEL STAT 04/18/2024 4:59 AM [facility] [facility] SEDIMENTATION RATE STAT 04/18/2024 4: 58 AM [employer] CBC WITH AUTO DIFFERENTIAL STAT 04/18/2024 4:58 AM [facility] RETICULOCYTES STAT 04/18/2024 4:58 AM [employer] CBC WITH AUTO DIFFERENTIAL STAT 04/18/2024 4:58 AM [facility] RED CELL MORPHOLOGY STAT 04/17/2024 1 0:50 AM [employer] PLATELET ESTIMATE STAT 04/17/2024 10: 50 AM [facility] [facility] C-REACTIVE PROTEIN SULEMA 04/17/2024 10 :50 AM [employer] SEDIMENTATION RATE SULEMA 04/17/2024 10 :50 AM [employer] CBC W PLT NO DIFF STAT 04/17/2024 10: 50 AM [employer] BASIC METABOLIC PANEL STAT 04/17/2024 10:50 AM [employer] RETICULOCYTES STAT 04/17/2024 10:50 AM [employer] [facility] XR HIP 2 OR 3 VIEWS W PELVIS LEFT STAT 04/15/2024 6:34 PM [employer] TYPE & SCREEN STAT 04/15/2024 6:10 PM [employer] RED CELL MORPHOLOGY STAT 04/15/2024 6 :10 PM [employer] PLATELET ESTIMATE STAT 04/15/2024 6:1 0 PM [employer] [facility] C-REACTIVE PROTEIN STAT 04/15/2024 6: 10 PM [facility] SEDIMENTATION RATE STAT 04/15/2024 6: 10 PM [employer] CBC WITH AUTO DIFFERENTIAL STAT 04/15/2024 6:10 PM [employer] BASIC METABOLIC PANEL STAT 04/15/2024 6:10 PM [employer] RETICULOCYTES STAT 04/15/2024 6:10 PM [employer] [facility] CBC WITH AUTO DIFFERENTIAL STAT 04/15/2024 6:10 PM [facility] RED CELL MORPHOLOGY Timed 04/08/2024 8 :27 PM [employer] PLATELET ESTIMATE Timed 04/08/2024 8:2 7 PM [employer] RETICULOCYTES Early AM 04/08/2024 8:27 PM [employer] [facility] CBC W PLT NO DIFF Early AM 04/08/2024 8:2 7 PM [employer] XR CHEST 2 VIEWS PA AND LATERAL STAT 04/08/2024 7:28 PM [employer] BASIC METABOLIC PANEL STAT 04/08/2024 7:05 PM [employer] EKG 12 LEAD STAT 04/08/2024 5:50 PM [employer] [facility] US ABDOMEN LIMITED GALLBLADDER STAT 04/06/2024 9:38 PM [employer] CBC WITH AUTO DIFFERENTIAL STAT 04/06/2024 8:55 PM [employer] RETICULOCYTES STAT 04/06/2024 8:55 PM [employer] LIPASE STAT 04/06/2024 8:55 PM [employer] COMP METABOLIC PANEL STAT 04/06/2024 8:55 PM [employer] CBC WITH AUTO DIFFERENTIAL STAT 04/06/2024 8:55 PM [facility] XR CHEST 2 VIEWS PA AND LATERAL STAT 04/04/2024 7:28 PM [employer] RED CELL MORPHOLOGY STAT 04/04/2024 6 :54 PM [employer] PLATELET ESTIMATE STAT 04/04/2024 6:5 4 PM [employer] MANUAL DIFFERENTIAL STAT 04/04/2024 6 :54 PM [employer] TROPONIN T (HS) ACUTE W/2HR REFLEX SULEMA 04/04/2024 6:54 PM [employer] [facility] CBC WITH AUTO DIFFERENTIAL STAT 04/04/2024 6:54 PM [employer] RETICULOCYTES STAT 04/04/2024 6:54 PM [employer] BASIC METABOLIC PANEL STAT 04/04/2024 6:54 PM [employer] CBC WITH AUTO DIFFERENTIAL STAT 04/04/2024 6:54 PM [employer] [facility] EKG 12 LEAD STAT 04/04/2024 6:45 PM [employer] from Last 3 Months Results * COVID-19 MOLECULAR (06/03/2024 12:51 PM [facility]) Only the most recent of2 resultswithin the time period is included. Pathologist [facility] COVID 19 [place] MOLECULAR Not detected Not detected 06/03/2024 1:18 PM [facility] [facility] 06/03/2024 1:18 PM [facility] Comment:Specimen submitted t o [facility] for testing. Other SPECIMEN FROM NASOPHARYNGEAL STRUCTURE / Unknown Non-Blood / Unknown 06/03/2024 12:51 PM [facility] 06/03/2024 12:54 PM [employer] [facility] Ben Swan MD MICROBIOLOGY Final Res ult [facility] [address] [place] [address], * INFLUENZA A/B PCR (06/03/2024 12:51 PM [employer] [facility]) Only the most recent of2 resultswithin the time period is included. Pathologist [facility] INFLUENZA A PCR NOT Detected 06/03/2024 1:18 PM [employer] INFLUENZA B PCR NOT Detected 06/03/2024 1:18 PM [employer] Other SPECIMEN FROM NASOPHARYNGEAL STRUCTURE / Unknown Non-Blood / Unknown 06/03/2024 12:51 PM [employer] 06/03/2024 12:54 PM [employer] [facility] Ben Swan MD MICROBIOLOGY Final Res ult [facility] [address] [place] [address], * (ABNORMAL) CBC WITH AUTO DIFFERENTIAL (06/03/2024 12:51 PM [employer] [facility]) Only the most recent of8 resultswithin the time period is included. WHITE BLOOD COUNT 11.0 4.5 - 11.0 thou/cu mm 06/03/2024 1:05 PM [employer] [facility] RED BLOOD COUNT 2.94(L) 4.00 - 5.20 mil/cu mm 06/03/2024 1:05 PM [employer] [facility] HEMOGLOBIN 9.3(L) 12.0 - 16.0 g/dL 06/03/2024 1:05 PM [employer] [facility] HEMATOCRIT 26.9(L) 33.0 - 51.0 % 06/03/2024 1:05 PM [employer] [facility] MCV 92 80 - 100 fL 06/03/2024 1:05 PM [employer] [facility] MCH 31.6 26.0 - 34.0 pg 06/03/2024 1:05 PM [employer] [facility] MCHC 34.6 32.0 - 36.0 g/dL 06/03/2024 1:05 PM [employer] [facility] RDW 18.9(H) 11.5 - 15.5 % 06/03/2024 1:05 PM [employer] [facility] PLATELET COUNT 456(H) 140 - 440 thou/cu mm 06/03/2024 1:05 PM [facility] MPV 9.8 6.5 - 11.0 fL 06/03/2024 1:05 PM [employer] [facility] NRBC 0.6 % 06/03/2024 1:05 PM [employer] [facility] ABS NRBC 0.1 thou /cu mm 06/03/2024 1:05 PM [employer] [facility] % NEUT 69.9 % 06/03/2024 1:05 PM [employer] [facility] % LYMPH 15.1 % 06/03/2024 1:05 PM [employer] [facility] % MONO 13.4 % 06/03/2024 1:05 PM [employer] [facility] % EOS 0.2 % 06/03/2024 1:05 PM [employer] [facility] % BASO 0.9 % 06/03/2024 1:05 PM [employer] [facility] % IMMATURE GRAN (METAS,MYELOS,CO OS) 0.5 % 06/03/2024 1:05 PM [employer] [facility] ABSOLUTE NEUTROPHILS 7.7(H) 1.7 - 7.0 thou/cu mm 06/03/2024 1:05 PM [employer] [facility] ABSOLUTE LYMPHOCYTES 1.7 0.9 - 2.9 thou/cu mm 06/03/2024 1:05 PM [employer] [facility] ABSOLUTE MONOCYTES 1.5(H) <0.9 thou/cu mm 06/03/2024 1:05 PM [employer] [facility] ABSOLUTE EOSINOPHILS 0.0 <0.5 thou/cu mm 06/03/2024 1:05 PM [employer] [facility] ABSOLUTE BASOPHILS 0.1 <0.3 thou/cu mm 06/03/2024 1:05 PM [employer] [facility] ABSOLUTE IMMATURE GRANULOCYTES(MET ,MYELOS,PROS) 0.1 <0.3 thou/cu mm 06/03/2024 1:05 PM [employer] [facility] Blood BLOOD SPECIMEN / Unknown IV Start / Unknown 06/03/2024 12:51 PM [employer] [facility] 06/03/2024 12:54 PM [employer] [facility] us Ben Swan MD HEMATOLOGY Final Res ult [facility] [address] [place] [address], * (ABNORMAL) BASIC METABOLIC PANEL (06/03/2024 12:51 PM [employer] [facility]) Only the most recent of11 resultswithin the time period is included. SODIUM 135(L) 136 - 145 mmol/L 06/03/2024 1:13 PM [employer] [facility] POTASSIUM 4.5 3.5 - 5.1 mmol/L 06/03/2024 1:13 PM [employer] [facility] CHLORIDE 101 98 - 107 mmol/L 06/03/2024 1:13 PM [employer] [facility] CO2,TOTAL 21(L) 22 - 29 mmol/L 06/03/2024 1:13 PM [employer] [facility] ANION GAP 13 5 - 18 06/03/2024 1:13 PM [employer] [facility] GLUCOSE 100(H) 70 - 99 mg/dL 06/03/2024 1:13 PM [employer] [facility] CALCIUM 9.6 8.8 - 10.4 mg/dL 06/03/2024 1:13 PM [employer] Comment: Reference ranges for this test were updated on 02/29/2024 to reflect our healthy population more accurately. Reference range changes are not retroactively applied to results, but previous results using the same methodology can be interpreted in the context of the new reference range. BUN 12 6 - 20 mg/dL 06/03/2024 1:13 PM [employer] [facility] CREATININE 0.74 0.50 - 0.90 mg/dL 06/03/2024 1:13 PM [employer] [facility] BUN/CREAT RATIO 16 10 - 20 1:13 PM [employer] [employer] eGFR >90 >90 mL/min/1.7 3m2 06/03/2024 1:13 PM [employer] [facility] Comment:As of 2021, eG FR is calculated by the CKD-EPI creatinine equation without race adjustment. eGFR can be influenced by muscle mass, exercise, and diet. The reported eGFR is an estimation only and is only applicable if the renal function is stable. Blood BLOOD SPECIMEN / Unknown IV Start / Unknown 06/03/2024 12:51 PM [employer] [facility] 06/03/2024 12:54 PM [employer] [facility] us Ben Swan MD CHEMISTRY Final Res ult [facility] [place] [address] [place] [address], * XR CHEST 2 VIEWS PA AND LATERAL (06/03/2024 12:34 PM [employer] [facility]) Only the most recent of5 resultswithin the time period is included. Anatomical Region Laterality Modality CHEST, THORAX, Lung, HEART Compu frank Radiography 06/03/2024 12:3 4 PM [employer] [facility] Impressions 06/03/2024 1:03 PM [employer] [facility] Faintly visible nodularity mid and lower lungs correspond to pulmonary nodules on recent CT. No focal pulmonary consolidation. No pleural effusion. No pneumothorax. Heart size normal. Port anterior right chest wall with right-sided CVC low SVC. In addition, there is a left-sided port anterior left chest wall with left CVC tip also in the low SVC. Narrative 06/03/2024 1:03 PM [employer] For Patients: As a result of the [...] * EKG 12 LEAD (06/03/2024 11:48 AM [employer]) Only the most recent of8 resultswithin the time period is included. Interpretation [...] NOW QTc 454 ms BEYOND NOW P Lucan 54 degrees BEYOND NOW R Lucan 55 degrees BEYOND NOW T Lucan 31 degrees [facility]YOND NOW 06/03/2024 11:4 8 AM [employer] [facility] 06/04/2024 3:27 AM [employer] [facility] [employer] Narrative [facility] NOW - 06/04/2024 3:27 AM [employer] Test Indication: chest pain [facility] Triage EKG ORD Final Result [facility] NOW [place], [place] * (ABNORMAL) HEMOGLOBIN (05/29/2024 2:23 PM [employer]) HEMOGLOBIN 7.1(L) 12.0 - 16.0 g/dL 05/29/2024 2:32 PM [employer] [facility] MCV 93 80 - 100 fL 05/29/2024 2:32 PM [employer] [facility] Blood BLOOD SPECIMEN / Unknown IV Start / Unknown 05/29/2024 2:23 PM [employer] 05/29/2024 2:30 PM [employer] Ana Pacheco MD HEMATOLOGY Final Result [facility] [address] [phone], * (ABNORMAL) RED CELL MORPHOLOGY (05/07/2024 6:20 PM [employer]) Only the most recent of7 resultswithin the time period is included. POLYCHROMASIA Moderate 05/07/2024 6:33 PM [employer] [facility] TARGET CELLS Moderate 05/07/2024 6:33 PM [employer] [facility] RBC COMMENT Present(A) RBC morphology appears normal, RBC morphology within normal limits for newborns. 05/07/2024 6:33 PM [employer] [facility] *SICKLE CELLS Present 05/07/2024 6:33 PM [employer] [facility] Blood BLOOD SPECIMEN / Unknown Butterfly / Unknown 05/07/2024 6:20 PM [employer] 05/07/2024 6:23 PM [employer] Caryn Rasmussen MD HEMATOLOGY Final Result Performing Organization Address City/[facility]/ZIP Co de Phone Number [facility] [address] [place] [phone], [place] [phone] * PLATELET ESTIMATE (05/07/2024 6:20 PM [employer]) Only the most recent of7 resultswithin the time period is included. PLATELET ESTIMATE Adequate Adequate, No estimate 05/07/2024 6:33 PM [employer] [facility] Blood BLOOD SPECIMEN / Unknown Butterfly / Unknown 05/07/2024 6:20 PM [employer] 05/07/2024 6:23 PM [employer] Caryn Rasmussen MD HEMATOLOGY Final Result Performing Organization Address [facility] Co de Phone Number [facility] [address] [place] [id number], [place] [phone] * (ABNORMAL) CBC W PLT NO DIFF (05/07/2024 6:20 PM [employer]) Only the most recent of4 resultswithin the time period is included. WHITE BLOOD COUNT 15.6(H) 4.5 - 11.0 thou/cu mm 05/07/2024 6:33 PM [employer] [facility] RED BLOOD COUNT 2.71(L) 4.00 - 5.20 mil/cu mm 05/07/2024 6:33 PM [employer] [facility] HEMOGLOBIN 8.7(L) 12.0 - 16.0 g/dL 05/07/2024 6:33 PM [employer] [facility] HEMATOCRIT 25.4(L) 33.0 - 51.0 % 05/07/2024 6:33 PM [employer] [facility] MCV 94 80 - 100 fL 05/07/2024 6:33 PM [employer] [facility] MCH 32.1 26.0 - 34.0 pg 05/07/2024 6:33 PM [employer] [facility] MCHC 34.3 32.0 - 36.0 g/dL 05/07/2024 6:33 PM [employer] [facility] RDW 23.3(H) 11.5 - 15.5 % 05/07/2024 6:33 PM [employer] [facility] PLATELET COUNT 356 140 - 440 thou/cu mm 05/07/2024 6:33 PM [employer] [facility] MPV 9.8 6.5 - 11.0 fL 05/07/2024 6:33 PM [employer] [facility] NRBC 2.0 % 05/07/2024 6:33 PM [employer] [facility] ABS NRBC 0.3 thou /cu mm 05/07/2024 6:33 PM [employer] [facility] Blood BLOOD SPECIMEN / Unknown Butterfly / Unknown 05/07/2024 6:20 PM [employer] 05/07/2024 6:23 PM [employer] Caryn Rasmussen MD HEMATOLOGY Final Result [facility] [address] [place] [address], * (ABNORMAL) RETICULOCYTES (05/07/2024 6:20 PM [employer]) Only the most recent of11 resultswithin the time period is included. RETIC% 20.3(H) 0.5 - 1.5 % 05/07/2024 6:34 PM [employer] [facility] RETIC (ABSOLUTE) 0.55(H) 0.03 - 0.08 mil/cu mm 05/07/2024 6:34 PM [employer] [facility] Blood BLOOD SPECIMEN / Unknown Butterfly / Unknown 05/07/2024 6:20 PM [employer] 05/07/2024 6:23 PM [employer] Caryn Rasmussen MD HEMATOLOGY Final Result Performing Organization Address City/[facility]/ZIP Co de Phone Number [facility] [address] [place] [phone], * LIPASE (05/07/2024 6:20 PM [employer]) Only the most recent of2 resultswithin the time period is included. LIPASE 35.9 13.0 - 60.0 IU/L 05/07/2024 6:53 PM [employer] [facility] Blood BLOOD SPECIMEN / Unknown Butterfly / Unknown 05/07/2024 6:20 PM [employer] 05/07/2024 6:23 PM [employer] Caryn Rasmussen MD CHEMISTRY Final Result Performing Organization Address [facility] Co de Phone Number [facility] [address] [place] [address], * (ABNORMAL) HEPATIC FUNCTION PANEL (05/07/2024 6:20 PM [employer]) Only the most recent of2 resultswithin the time period is included. ALBUMIN 4.4 4.0 - 4.9 g/dL 05/07/2024 6:53 PM [employer] [facility] PROTEIN,TOTAL 8.1(H) 6.0 - 8.0 g/dL 05/07/2024 6:53 PM [employer] [facility] BILIRUBIN,TOTAL 2.2(H) 0.0 - 1.2 mg/dL 05/07/2024 6:53 PM [employer] [facility] [facility] BILIRUBIN,DIRECT 0.9(H) 0.0 - 0.2 mg/dL 05/07/2024 6:53 PM [employer] [facility] BILIRUBIN,INDIRE CT 1.3(H) 0.2 - 0.8 mg/dL 05/07/2024 6:53 PM [employer] [facility] ALK PHOSPHATASE 120(H) 35 - 104 IU/L 05/07/2024 6:53 PM [employer] [facility] ALT (SGPT) 28 10 - 35 IU/L 05/07/2024 6:53 PM [employer] [facility] AST (SGOT) 46(H) 10 - 35 IU/L 05/07/2024 6:53 PM [employer] [facility] Blood BLOOD SPECIMEN / Unknown Butterfly / Unknown 05/07/2024 6:20 PM [employer] 05/07/2024 6:23 PM [employer] Caryn Rasmussen MD CHEMISTRY Final Result [facility] [place] [address], * CT CHEST PE STUDY (05/04/2024 1:46 AM [employer]) Anatomical Region Laterality Modality CHEST, THORAX, HEART Computed To mography 05/04/2024 1:46 AM [employer] [facility] [employer] Impressions 05/04/2024 2:01 AM [employer] [employer] 1. No pulmonary embolus. 2. Multiple small bilateral pulmonary nodules and mild enlargement of right hilar lymph nodes not significantly changed from the recent study of 04/06/2024. Differential diagnosis includes inflammatory/infectious and neoplastic etiologies. Narrative 05/04/2024 2:01 AM [employer] For Patients: As a result of the Century Cures Act, medical imaging exams and procedure reports are released immediately into your electronic medical record. You may view this report before your referring provider. If you have questions, please contact your health care provider. EXAM: CT CHEST PE STUDY LOCATION: [facility] DATE: 05/04/2024 INDICATION: Pulmonary embolism (PE) [...] provider. EXAM: CT CHEST PE STUDY LOCATION: [facility] DATE: 05/04/2024 INDICATION: Pulmonary embolism (PE) [...] EXAM REFLEXED PER CRITERIA (05/04/2024 12:07 AM [employer] [facility] [employer]) COLOR Yellow Yellow Color 05/04/2024 12:18 AM [facility] CLARITY Clear Clear Clarity 05/04/2024 12:18 AM [facility] SPECIFIC GRAVITY,URINE 1.015 1.010, 1.015, 1.020, 1.025 05/04/2024 12:18 AM [facility] PH,URINE 7.0 6.0, 7.0, 8.0, 5.5, 6.5, 7.5, 8.5 05/04/2024 12:18 AM [facility] UROBILINOGEN,Q UALITATIVE Normal Normal EU/dl 05/04/2024 12:18 AM [facility] PROTEIN, URINE Negative Negative mg/dL 05/04/2024 12:18 AM [facility] GLUCOSE, URINE Negative Negative mg/dL 05/04/2024 12:18 AM [facility] KETONES,URINE Negative Negative mg/dL 05/04/2024 12:18 AM [facility] BILIRUBIN,URIN E Negative Negative 05/04/2024 12:18 AM [facility] OCCULT BLOOD,URINE Negative Negative 05/04/2024 12:18 AM [facility] NITRITE Negative Negative 05/04/2024 12:18 AM [employer] [facility] LEUKOCYTE ESTERASE Negative Negative 05/04/2024 12:18 AM [employer] [facility] Urine URINE SPECIMEN / Unknown Non-Blood / Unknown 05/04/2024 12:07 AM [employer] 05/04/2024 12:13 AM [employer] Anika Mccracken MD URINE Final Resu lt Performing Organization Address City/[facility]/ZIP Co de Phone Number [facility] [address] [place] [phone], * URINE (05/04/2024 12:07 AM [employer]) ,URIN E Negative Negative 05/04/2024 12:22 AM [employer] [facility] Urine URINE SPECIMEN / Unknown Non-Blood / Unknown 05/04/2024 12:07 AM [employer] 05/04/2024 12:13 AM [employer] Anika Mccracken MD URINE Final Resu lt Performing Organization Address City/[facility]/ZIP Co de Phone Number [facility] [address] [place] [address], [place] [phone] * CWS PATH REVIEW HEMATOLOGY (05/03/2024 11:52 PM [employer]) PATH COMMENT Comment: 05/06/2024 7:30 AM [employer] [facility] Comment:Frequent sickle cell s. Reviewed by Dr. Richar Huffman on 05/05/2024 Blood BLOOD SPECIMEN / Unknown IV Start / Unknown 05/03/2024 11:52 PM [employer] 05/03/2024 11:52 PM [employer] Anika Mccracken MD LABORATORY Final Resu lt [facility] [address] [place] [address], [place] * (ABNORMAL) MANUAL DIFFERENTIAL (05/03/2024 11:52 PM [employer]) Only the most recent of3 resultswithin the time period is included. % NEUTROPHILS 55.0 % 05/04/2024 12:13 AM [employer] [facility] % LYMPHOCYTES 33.0 % 05/04/2024 12:13 AM [employer] [facility] % MONOCYTES 10.0 % 05/04/2024 12:13 AM [employer] [facility] % EOSINOPHILS 2.0 % 05/04/2024 12:13 AM [employer] [facility] % BASOPHILS 0.0 % 05/04/2024 12:13 AM [employer] [facility] NEUTROPHILS ABSOLUTE 10.6(H) 1.7 - 7.0 thou/cu mm 05/04/2024 12:13 AM [employer] [facility] LYMPHOCYTES ABSOLUTE 6.3(H) 0.9 - 2.9 thou/cu mm 05/04/2024 12:13 AM [employer] [facility] MONOCYTES ABSOLUTE 1.9(H) <0.9 thou/cu mm 05/04/2024 12:13 AM [employer] [facility] EOSINOPHILS ABSOLUTE 0.4 <0.5 thou/cu mm 05/04/2024 12:13 AM [employer] [facility] BASOPHILS ABSOLUTE 0.0 <0.3 thou/cu mm 05/04/2024 12:13 AM [employer] [facility] Blood BLOOD SPECIMEN / Unknown IV Start / Unknown 05/03/2024 11:52 PM [employer] 05/03/2024 11:52 PM [employer] us Anika Mccracken MD HEMATOLOGY Final Resu lt [facility] [address] [place] [address], * (ABNORMAL) D-DIMER,QUANTITATIVE (05/03/2024 11:52 PM [employer]) Pathologist [facility] D-DIMER,QUANTI TATIVE 1.51(H) <=0.49 FEU mcg/mL 05/04/2024 12:28 AM [employer] [facility] Blood BLOOD SPECIMEN / Unknown IV Start / Unknown 05/03/2024 11:52 PM [employer] 05/03/2024 11:52 PM [employer] Narrative [facility] - 05/04/2024 12:28 AM [employer] The cut off value for exclusion of Deep Vein Thrombosis and / or Pulmonary Embolism is 0.50 FEU mcg/mL For patients greater than 50 years of age the upper limit is age dependent and was calculated with the formula: (PATIENT AGE x 0.01) FEU mcg/mL = Upper limit of normal range Anika cMcracken MD HEMATOLOGY Final Resu lt Performing Organization Address City/[facility]/ZIP Co de Phone Number [facility] [address] [place] [phone], * TYPE AND SCREEN ONLY (04/20/2024 4:43 PM [employer] [employer]) Only the most recent of2 resultswithin the time period is included. ABORH A Rh Positive 04/20/2024 5:20 PM [employer] [facility] Comment:Comment: Performed b y [facility], [address] [place] [address] ANTIBODY SCREEN Negative Negative 04/20/2024 5:20 PM [employer] [facility] Comment:Comment: Performed b y [facility], [address] [place] [address] SPECIMEN EXPIRATION DATE/TIME 04/23/24 23:59 04/20/2024 5:20 PM [employer] [facility] Blood BLOOD SPECIMEN / Unknown Butterfly / Unknown 04/20/2024 4:43 PM [employer] 04/20/2024 4:48 PM [employer] Maria Teresa SUTTON BLOOD BANK Final Result [facility] [address] [place] [address], [place] [phone] [facility] [address] [place] [address] * XR ANKLE 3 VIEWS LEFT (04/18/2024 5:09 AM [employer]) Anatomical Region Laterality Modality ANKLES, ANKLE L Computed Radiogr aphy 04/18/2024 5:09 AM [employer] [facility] [employer] Impressions 04/18/2024 5:11 AM [employer] Normal joint spaces and alignment. No fracture. No significant soft tissue swelling. Ankle mortise intact. Narrative 04/18/2024 5:11 AM [employer] For Patients: As a result of the Cures Act, medical imaging exams and procedure reports are released immediately into your electronic medical record. You may view this report before your referring provider. If you have questions, please contact your health care provider. EXAM: XR ANKLE 3 VIEWS LEFT LOCATION: [facility] DATE: 04/18/2024 INDICATION: Pain COMPARISON: None. Procedure Note Jayden Correa MD - 04/18/2024 For Patients: As a result of the Cures Act, medical imagingexams and procedure reports are released immediately into your electronicmedical record. You may view this report before your referring provider.If you have questions, please contact your health care provider. EXAM: XR ANKLE 3 VIEWS LEFT LOCATION: [facility] DATE: 04/18/2024 INDICATION: Pain COMPARISON: None. IMPRESSION: Normal joint spaces and alignment. No fracture. No significant soft tissueswelling. Ankle mortise intact. Elizabeth Duffy MD GENERAL IMAGING Final Res ult * C-REACTIVE PROTEIN (04/18/2024 4:59 AM [employer]) Only the most recent of3 resultswithin the time period is included. C-REACTIVE PROTEIN <0.3 <0.5 mg/dL 04/18/2024 5:43 AM [employer] [facility] Blood BLOOD SPECIMEN / Unknown Butterfly / Unknown 04/18/2024 4:59 AM [employer] 04/18/2024 5:02 AM [employer] Elizabeth Duffy MD CHEMISTRY Final Res ult Performing Organization Address [facility] Co de Phone Number [facility] [address] [place] [address], * SEDIMENTATION RATE (04/18/2024 4:58 AM [employer]) Only the most recent of3 resultswithin the time period is included. SEDIMENTATION RATE 6 <20 mm/hr 2023 5:17 AM [employer] [facility] Blood BLOOD SPECIMEN / Unknown Butterfly / Unknown 04/18/2024 4:58 AM [employer] 04/18/2024 5:02 AM [employer] Elizabeth Duffy MD HEMATOLOGY Final Res ult Performing Organization Address [facility] Co de Phone Number [facility] [address] [place] [phone], * XR HIP 2 OR 3 VIEWS W PELVIS LEFT (04/15/2024 6:34 PM [employer]) Anatomical Region Laterality Modality HIPS, HIPL, Pelvis Computed Radi ography 04/15/2024 6:34 PM [employer] Impressions 04/15/2024 6:46 PM [employer] No acute fracture or subluxation. Sclerosis of the left femoral head in keeping with osteonecrosis. No articular surface collapse. There is additional patchy sclerosis throughout the pelvis greatest in the right iliac bone which may represent additional osteonecrosis. Hip joint spaces are grossly preserved. 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 Narrative 04/15/2024 6:46 PM [employer] For Patients: As a result of the Cures Act, medical imaging exams and procedure reports are released immediately into your electronic medical record. You may view this report before your referring provider. If you have questions, please contact your health care provider. EXAM: XR HIP 2 OR 3 VIEWS W PELVIS LEFT LOCATION: [facility] DATE: 04/15/2024 INDICATION: left hip pain, [...] OR 3 VIEWS W PELVIS LEFT LOCATION: [facility] DATE: 04/15/2024 INDICATION: left hip pain, [...] US ABDOMEN LIMITED GALLBLADDER (04/06/2024 9:38 PM [employer] [employer]) Anatomical Region Laterality Modality Abdomen Ultrasound 04/06/2024 9:38 PM [employer] [employer] Impressions 04/06/2024 9:46 PM [employer] [facility] 1. Cholelithiasis. Otherwise negative. Narrative 04/06/2024 9:46 PM [employer] For Patients: As a result of the [...] provider. EXAM: US ABDOMEN LIMITED GALLBLADDER LOCATION: [facility] DATE: 04/06/2024 INDICATION: Right upper quadrant [...] (ABNORMAL) COMP METABOLIC PANEL (04/06/2024 8:55 PM [employer] [facility]) SODIUM 140 136 - 145 mmol/L 04/06/2024 9:20 PM [employer] POTASSIUM 4.5 3.5 - 5.1 mmol/L 04/06/2024 9:20 PM [employer] CHLORIDE 108(H) 98 - 107 mmol/L 04/06/2024 9:20 PM [employer] [facility] CO2,TOTAL 21(L) 22 - 29 mmol/L 04/06/2024 9:20 PM [employer] [facility] ANION GAP 11 5 - 18 04/06/2024 9:20 PM [employer] [facility] GLUCOSE 103(H) 70 - 99 mg/dL 04/06/2024 9:20 PM [employer] [facility] CALCIUM 9.6 8.8 - 10.4 mg/dL 04/06/2024 9:20 PM [employer] [facility] Comment: Reference ranges for this test were updated on 02/29/2024 to reflect our healthy population more accurately. Reference range changes are not retroactively applied to results, but previous results using the same methodology can be interpreted in the context of the new reference range. BUN 8 6 - 20 mg/dL 04/06/2024 9:20 PM [employer] [facility] CREATININE 0.78 0.50 - 0.90 mg/dL 04/06/2024 9:20 PM [employer] [facility] BUN/CREAT RATIO 10 10 - 20 9:20 PM [employer] eGFR >90 >90 mL/min/1.7 3m2 04/06/2024 9:20 PM [employer] [facility] Comment:As of 2021, eG FR is calculated by the CKD-EPI creatinine equation without race adjustment. eGFR can be influenced by muscle mass, exercise, and diet. The reported eGFR is an estimation only and is only applicable if the renal function is stable. ALBUMIN 4.7 4.0 - 4.9 g/dL 04/06/2024 9:20 PM [employer] [facility] PROTEIN,TOTAL 8.6(H) 6.0 - 8.0 g/dL 04/06/2024 9:20 PM [employer] [facility] BILIRUBIN,TOTAL 1.6(H) 0.0 - 1.2 mg/dL 04/06/2024 9:20 PM [employer] [facility] ALK PHOSPHATASE 124(H) 35 - 104 IU/L 04/06/2024 9:20 PM [employer] ALT (SGPT) 36(H) 10 - 35 IU/L 04/06/2024 9:20 PM [employer] [facility] AST (SGOT) 37(H) 10 - 35 IU/L 04/06/2024 9:20 PM [employer] [facility] Blood BLOOD SPECIMEN / Unknown Butterfly / Unknown 04/06/2024 8:55 PM [employer] 04/06/2024 9:00 PM [employer] Tanmay SUTTON CHEMISTRY Final R esult [facility] [place] [address], * TROPONIN T (HS) ACUTE W/2HR REFLEX (04/04/2024 6:54 PM [employer]) TROPONIN T HS <6 6-10 ng/L ng/L 04/04/2024 7:31 PM [employer] [facility] Blood BLOOD SPECIMEN / Unknown Butterfly / Unknown 04/04/2024 6:54 PM [employer] 04/04/2024 6:57 PM [employer] [facility] [employer] Narrative [facility] - 04/04/2024 7:31 PM [employer] hs-cTnT (Elecsys Troponin T Gen 5) concentration [...] population. 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
--- OUTSIDE RECORDS SUMMARY | 2024-07-03 20:31 | XMS_ITS | Encounter Summary ---
Author Organization [facility] Address [address] [place] [address] Care Team Providers Care Activities Concierge Name Role Phone No Ref-Primary, Physician Primary Care Provider Mor Ramsey Unavailable Unavailable Case Samuel MD Unavailable [phone] Reason for Referral * Diagnostic Imaging MRI (Routine) - Pending Review Specialty Diagnoses / Procedures Referred By Shahid pendleton Referred To Contact Radiology. 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 If you don't hear from a motor vehicle representative within 2 business days, please call . Additional Information: History of hemoglobin SS disease. History of retinopathy reported from care in [place] but not in a long time. Requesting eye exam for retinopathy Comments Please be aware that coverage of these services is subject to the terms and limitations of your health insurance plan. Call member services at your health plan with any benefit or coverage questions. [facility] will call you to coordinate your care as prescribed by your provider. If you don't hear from a motor vehicle representative within 2 business days, please call . 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 Requesting eval for further management per ortho's expertise. Scheduling Instructions: [facility] Orthopedic Wire Insulator will call you to coordinate your care as prescribed by your provider. A motor vehicle representative will call you within 2 business days to help you schedule your appointment, or you may contact the Wire Insulator Van Driver Helper at: . Comments Please be aware that coverage of these services is subject to the terms and limitations of your health insurance plan. Call member services at your health plan with any benefit or coverage questions. [facility] Orthopedic Wire Insulator will call you to coordinate your care as prescribed by your provider. A motor vehicle representative will call you within 2 business days to help you schedule your appointment, or you may contact the Wire Insulator Van Driver Helper at: . 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 If you don t hear from a motor vehicle representative within 2 business days, please call . Additional Information: History of symptomatic gallstones due to sickle cell disease. Previous workup in [place], [place] ([facility]) prior to moving here. Was moving towards cholecystectomy but ended up moving sooner. Requesting eval for gallstones. Comments Please be aware that coverage of these services is subject to the terms and limitations of your health insurance plan. Call member services at your health plan with any benefit or coverage questions. [facility] will call you to coordinate your care as prescribed by the provider. If you don t hear from a motor vehicle representative within 2 business days, please call . BURN Reason for Visit * Reason Comments Oncology Clinic Visit Sickle cell pain c risis * Consultation (Urgent: 3-5 Days) - Pending Review Specialty Diagnoses / Procedures Referred By Contac t Referred To Contact Medical Oncology Diagnoses 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 (H) Mor Ramsey Referral ID Status Reason Start Date Expiration Date V isits Requested Visits Authorized [id number] Pending Review 03/28/2024 03/28/2025 1 1 Encounter Details Date Type Department Care Team (Late st Contact Info) Description 05/01/2024 11:00 AM RN BURN Oncology Visit [facility] [address] [place] [address] Case Samuel MD [address] [facility] [address], [address] [place] [address] History of transfusion (Primary Dx); [...] Answer Date Recorded Do you have housing? (Sea g is defined as stable permanent housing [...] file Legal Sex Female 8:25 AM RN BURN Gender Identity Not on file Sexual Orientation Not on file documented as of this encounter Last Filed Vital Signs Vital Sign Reading Time Taken Comments Blood Pressure 93/62 05/01/2024 10:50 AM RN BURN Pulse 93 05/01/2024 10:50 AM RN BURN Temperature 36.8 C (98.2 F) 05/01/2024 10:50 AM RN BURN Respiratory Rate 16 05/01/2024 10:50 AM RN BURN Oxygen Saturation 98% 05/01/2024 10:50 AM RN BURN Inhaled Oxygen Concentration - - Weight 51 kg (112 lb 6.4 oz) 05/01/2024 10:50 AM RN BURN Height 159.9 cm (5' 2.95) 05/01/2024 10:[address] Body Mass Index 19.94 05/01/2024 10:50 AM RN BURN documented in this encounter Progress Notes * [...] She said that she was born in [place] but moved throughout her childhood because her dad was in the . She is the youngest of 9 children she said, though she is the only one with sickle cell disease. Among other places, she was living in [place] for a time and then moved to [place]. It was there that shemet her boyfriend. She ultimately moved back to [place] and he came with her. It was there that they had a daughter Chanda, now 2 years old. That was a difficult for her, and she feelslike she never wants to be again. She was living in [place], [place] and receiving care at [facility], though she did not get the sense that general farmworker there was super comfortable with sickle cell [...] about 3 weeks ago. She moved to [place] about 2 months ago. Her boyfriend is [...] worked up for symptomatic gallstones back in [place], but there were some delays in getting a cholecystectomy and by the time it was getting scheduled, they were moving to [place]. She reports that she has had a [...] them both so she can be a [id number] mom. Sickle Cell Disease Comprehensive Checklist Stroke/silent [...] titrate as needed and notify the primary general farmworker via [employer] message if changes to the plan below are needed. 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 GENERAL APPEARANCE: healthy, alert [...] she knows. Even though she lives in [place], she is very willing to come to the [place] to get her care and use the [...] around the hip and femur strong. -Orthopedic urban redevelopment specialist referral placed. Will defer to them for [...] per the note Case Samuel MD Classical Destination Coordinator Division of Hematology, Oncology, and Transplantation [facility] BURN BURN documented in this encounter Nursing Notes * [...] Provider was notified. Pharmacy name entered into [employer]: [id number] - [place], [place] - [facility] [place], [place] - [address] [facility] Frailty Screening: Is the patient here for a new oncology consult visit in cancer care? 2. No Clinical concerns: Patient states no new concerns to discuss with provider. Patricia Swan, EMT BURN documented in this encounter Plan of Treatment Upcoming Encounters Date Type Department Care Team (Late st Contact Info) Description 07/04/2024 9:00 AM CDT Lab [facility] [address] [phone] Case Samuel MD [address] [place] [address] 484, [address] [id number] 07/06/2024 8:[address] 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) Expected: 05/02/2024 (Approximate), Expires: 05/02/2025 Scheduled Referrals Name Type Priority Associated Diagnoses Orde r Schedule Adult GI Wire Insulator Referral - Consult Only Referral Routine: Next available opening 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) Gallstones Expected: 05/01/2024 (Approximate), Expires: 05/01/2025 Orthopedic Wire Insulator Referral Referral Routine: Next available opening 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 Author Pain Management General On track( 025 12:40 PM RN BURN) Yes Juhi Benson RN Note: Goal Statement: [...] Genotype Red Blood Cell (05/29/2024 11:23 AM RN BURN) See Scanned Result GENOTYPE RED BLOOD CELL-Scanned 05/31/2024 10:16 AM RN BURN [facility] Blood VENOUS LINE / Unknown IVAD (Port) / Unknown 05/29/2024 11:23 AM RN BURN 05/29/2024 11:29 AM RN BURN us Case Samuel MD LAB - BLOOD ORDERABLES Fi nal Result [facility] [address] [place] [address], [facility] [phone] * (ABNORMAL) HGB Eval Reflex to ELP or RBC Solubility (05/29/2024 11:23 AM RN BURN) Hemoglobin A 15.0(L) 95.0 - 97.9 % 05/31/2024 2:46 PM RN BURN [facility] Hemoglobin A2 3.0 2.0 - 3.5 % 05/31/2024 2:46 PM RN BURN [facility] Hemoglobin F 10.8(H) 0.0 - 2.1 % 05/31/2024 2:46 PM RN BURN [facility] Hemoglobin S 71.2(H) 0.0 - 0.0 % 05/31/2024 2:46 PM RN BURN [facility] Hemoglobin C 0.0 0.0 - 0.0 % 05/31/2024 2:46 PM RN BURN [facility] Hemoglobin E 0.0 0.0 - 0.0 % 05/31/2024 2:46 PM RN BURN [facility] Hemoglobin - Other 0.0 0.0 - 0.0 % 05/31/2024 2:46 PM RN BURN [facility] Hemoglobin Evaluation See Note 05/31/2024 2:46 PM RN BURN [facility] Comment: Impression: Hb S present [...] Globin (HBA1 and HBA2) Deletion/Duplication ([facility] test #0424550) should be considered. Hb S/beta-plus thalassemia is typically characterized by more Hb S than Hb A with the presence of microcytosis. If microcytosis is present and Hb S/beta-plus thalassemia is suspected, Beta Globin (HBB) Sequencing ([facility] test #[id number]) is suggested. Hemoglobin analysis should be offered [...] developed and its performance characteristics determined by [facility]. It has not been cleared or approved by the U.S. Food and Drug Administration. This test was performed in a CLIA-certified laboratory and is intended for clinical purposes. Sickle Cell Solubility Reflex Positive(A) 05/31/2024 2:46 PM RN BURN [facility] Comment: INTERPRETIVE INFORMATION: Sickle Cell Solubility Reflex Not Performed: Solubility testing for Hemoglobin S not indicated. 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 Additional charges apply. Conf Previous: Positive for Hemoglobin S by HPLC. Solubility testing performed previously and not repeated with this submission. Hgb Capillary Electrophoresis Reflex Performed 05/31/2024 2:46 PM RN BURN [facility] Comment: INTERPRETIVE INFORMATION: Hgb Capillary Electrophoresis Reflex Not Performed: Confirmation by Capillary Electrophoresis not indicated. Performed: Results confirmed by Capillary Electrophoresis. Additional charges apply. Conf Previous: Capillary Electrophoresis confirmation performed as part of a previous submission. Confirmation not repeated with this submission. Performed By: [facility] [address] [place] [id number] Director Employee Safety And Health: Devon Healy MD, PhD CLIA Number: [id number] Blood VENOUS LINE / Unknown IVAD (Port) / Unknown 05/29/2024 11:23 AM RN BURN 05/29/2024 11:30 AM RN BURN Case Samuel MD LAB - BLOOD ORDERABLES nal Result [facility] Dheere Bolo [facility] [address] [place] [phone], [facility] [phone] * (ABNORMAL) Ferritin (05/29/2024 11:23 AM RN BURN) Ferritin 1,559(H) 6 - 175 ng/mL 05/29/2024 12:43 PM RN BURN [facility] Blood VENOUS LINE / Unknown IVAD (Port) / Unknown 05/29/2024 11:23 AM RN BURN 05/29/2024 11:29 AM RN BURN us Case Samuel MD LAB - BLOOD ORDERABLES Fi nal Result [facility] [address] [facility] 1st [place] [address] * (ABNORMAL) Routine UA with micro reflex to culture (05/29/2024 11:23 AM RN BURN) Color Urine Yellow Colorless, Straw, Light Yellow, Yellow 05/29/2024 11:41 AM [facility] Appearance Urine Slightly Cloudy(A) Clear 05/29/2024 11:41 AM [facility] Glucose Urine Negative Negative mg/dL 05/29/2024 11:41 AM [facility] Bilirubin Urine Negative Negative 11:41 AM [facility] Ketones Urine Negative Negative mg/dL 05/29/2024 11:41 AM [facility] Specific [place] Urine 1.013 1.003 - 1.035 05/29/2024 11:41 AM [facility] Blood Urine Negative Negative 05/29/2024 11:41 AM [facility] pH Urine 7.0 5.0 - 7.0 05/29/2024 11:41 AM [facility] Protein Albumin Urine Negative Negative mg/dL 05/29/2024 11:41 AM [facility] Urobilinogen Urine Normal Normal, 2.0 mg/dL 05/29/2024 11:41 AM [facility] Nitrite Urine Negative Negative 05/29/2024 11:41 AM [facility] Leukocyte Esterase Urine Moderate(A) Negative 05/29/2024 11:41 AM [facility] Mucus Urine Present(A) None Seen /LPF 05/29/2024 11:41 AM [facility] RBC Urine 6(H) <=2 /HPF 05/29/2024 11:41 AM [facility] WBC Urine 3 <=5 /HPF 05/29/2024 11:41 AM [facility] Squamous Epithelials Urine 18(H) <=1 /HPF 05/29/2024 11:41 AM [facility] Urine URINE SPECIMEN OBTAINED BY CLEAN CATCH PROCEDURE / Unknown Non-blood Collection / Unknown 05/29/2024 11:23 AM RN BURN 05/29/2024 11:29 AM RN BURN Narrative [facility] - 05/29/2024 11:41 AM RN BURN Urine Culture ordered based on laboratory criteria Case Samuel MD LAB - URINE ORDERABLES Fi nal Result [facility] [place] [address] [facility] 1st [place] [address] * (ABNORMAL) Comprehensive metabolic panel (05/29/2024 11:23 AM RN BURN) Sodium 139 135 - 145 mmol/L 05/29/2024 11:58 AM [facility] Potassium 4.2 3.4 - 5.3 mmol/L 05/29/2024 11:58 AM [facility] Carbon Dioxide (CO2) 24 22 - 29 mmol/L 05/29/2024 11:58 AM [facility] Anion Gap 10 7 - 15 mmol/L 05/29/2024 11:58 AM [facility] Urea Nitrogen 9.2 6.0 - 20.0 mg/dL 05/29/2024 11:58 AM [facility] Creatinine 0.75 0.51 - 0.95 mg/dL 05/29/2024 11:58 AM [facility] GFR Estimate >90 >60 mL/min/1.7 3m2 05/29/2024 11:58 AM [facility] Comment:eGFR calculated usin g 2020 CKD-EPI equation. Calcium 8.9 8.8 - 10.4 mg/dL 05/29/2024 11:58 AM [facility] Chloride 105 98 - 107 mmol/L 05/29/2024 11:58 AM [facility] Glucose 109(H) 70 - 99 mg/dL 05/29/2024 11:58 AM [facility] Alkaline Phosphatase 83 40 - 150 U/L 05/29/2024 11:58 AM [facility] AST 49(H) 0 - 45 U/L 05/29/2024 11:58 AM [facility] ALT 21 0 - 50 U/L 05/29/2024 11:58 AM [facility] Protein Total 7.3 6.4 - 8.3 g/dL 05/29/2024 11:58 AM [facility] Albumin 4.1 3.5 - 5.2 g/dL 05/29/2024 11:58 AM [facility] Bilirubin Total 2.2(H) <=1.2 mg/dL 05/29/2024 11:58 AM [facility] Blood VENOUS LINE / Unknown IVAD (Port) / Unknown 05/29/2024 11:23 AM RN BURN 05/29/2024 11:29 AM RN BURN Case Samuel MD LAB - BLOOD ORDERABLES Fi nal Result Performing Organization Address [facility] Co de Phone Number [facility] [address] [place] [address] * (ABNORMAL) Reticulocyte count (05/29/2024 11:23 AM RN BURN) [facility] % Reticulocyte 29.8(H) 0.5 - 2.0 % 05/29/2024 12:00 PM [facility] Absolute Reticulocyte 0.631(H) 0.025 - 0.095 10e6/uL 05/29/2024 12:00 PM RN BURN [facility] Blood VENOUS LINE / Unknown IVAD (Port) / Unknown 05/29/2024 11:23 AM RN BURN 05/29/2024 11:29 AM RN BURN Case Samuel MD LAB - BLOOD ORDERABLES Fi nal Result Performing Organization Address [facility]/ZIP Co de Phone Number [facility] [address] 1st [place] [address] * (ABNORMAL) Vitamin D deficiency screening (04/28/2024 1:50 AM RN BURN) Vitamin D, Total (25-Hydroxy) 8(L) 20 - 50 ng/mL 05/01/2024 6:42 PM RN BURN [facility] Comment:severe deficiency Blood BLOOD SPECIMEN / Unknown Venipuncture / Unknown 04/28/2024 1:50 AM RN BURN 04/28/2024 1:53 AM RN BURN Narrative [facility] - 05/01/2024 6:42 PM RN BURN Season, race, dietary intake, and treatment affect the concentration of 87-hkxvvhr-Fqodkuw D. Values may decrease during winter months and increase during summer months. Vitamin D determination is routinely performed by an immunoassay specific for 25 hydroxyvitamin D3. If an individual is on vitamin D2(ergocalciferol) supplementation, please specify 25 [place] vitamin D2 and D3 level determination by LCMSMS test VITD23. us Case Samuel MD LAB - BLOOD ORDERABLES Fi nal Result [facility] [employer] [facility] [address] [facility], [address] [place] [address], [facility] documented in this encounter Visit Diagnoses [...] Out COVID-19 05/08/2024 05/08/2024 05/08/2024 8:18 PM RN BURN Rule Out COVID-19 05/16/2024 05/16/2024 05/16/2024 10:46 PM RN BURN documented as of this encounter Care Teams Activities Concierge Relationship Specialty Start Date End Date No Ref-Primary, Physician PCP - General 03/15/24 06/17/24 Mor Ramsey Medical Student 04/03/24 Case Samuel MD [address] [place] [address], [address] [place] [address] Assigned Pediatric Specialist Provider 05/18/24 documented as of this encounter
--- OUTSIDE RECORDS SUMMARY | 2024-07-03 20:31 | XMS_ITS | Encounter Summary ---
Author Organization [facility] Address [address] [place] [address]. [place] [address] Care Team Providers Care It Applications Analyst Name Role Phone No Ref-Primary, Physician Primary Care Provider Mor Ramsey Unavailable Unavailable Case Samuel MD Unavailable [phone] Encounter Details Date Type Department Care Team [...] on file Legal Sex Female 8:25 AM HAND HIDE STRETCHER Gender Identity Not on file Sexual Orientation Not on file documented as of this encounter Plan of Treatment Upcoming Encounters Date Type Department Care Team (Late st Contact Info) Description 07/04/2024 9:00 AM CDT Lab [facility] [address] [phone] Case Samuel MD [address] [place] [address], [address] [id number] 07/06/2024 8:00 AM CDT Appointment [facility] [address] [phone] Case Samuel MD [address] [place], [place] [address], [address] [place], [place] [address] 07/10/2024 11:30 AM CDT Oncology Visit [facility] [address] [phone] Case Samuel MD [address] [place], [place] [address], [address] [id number] documented as of this encounter Goals Goal Patient Goal Type Associated Problems Recent Progress Patient-Stated? Author Pain Management General On track( 025 12:40 PM HAND HIDE STRETCHER) Yes Juhi Benson, RN Note: Goal Statement: [...] filedocumented in this encounter Care Teams It Applications Analyst Relationship Specialty Start Date End Date No Ref-Primary, Physician PCP - General 03/15/24 06/17/24 Mor Ramsey Medical Student 04/03/24 Case Samuel MD [address] [place] [address], [address] [place] [address] Assigned Pediatric Specialist Provider 05/18/24 documented as of this encounter
--- OUTSIDE RECORDS SUMMARY | 2024-07-03 20:31 | XMS_ITS | Encounter Summary ---
Author Organization [facility] Address [address] [place] [address] Care Team Providers Care Gun Fertilizer Name Role Phone No Ref-Primary, Physician Primary Care Provider Mor Ramsey Unavailable Unavailable Case Samuel MD Unavailable [phone] Reason for Visit * Reason Comments Sickle Cell Pain Crisis Encounter Details Date Type Department Care Team (Late st Contact Info) Description 05/19/2024 2:10 AM BOILER ASSISTANT OPERATOR - 05/19/2024 6:06 AM [facility] [place] [address] Marilia Summers MD [address] [place] [address] [id number] Sickle cell disease with crisis (H) Discharge [...] on file Legal Sex Female 8:25 AM BOILER ASSISTANT OPERATOR Gender Identity Not on file Sexual Orientation Not on file documented as of this encounter Last Filed Vital Signs Vital Sign Reading Time Taken Comments Blood Pressure 110/60 05/19/2024 5:30 AM BOILER ASSISTANT OPERATOR Pulse 89 05/19/2024 5:30 AM BOILER ASSISTANT OPERATOR Temperature 36.9 C (98.4 F) 05/19/2024 2:16 AM BOILER ASSISTANT OPERATOR Respiratory Rate 16 05/19/2024 2:16 AM BOILER ASSISTANT OPERATOR Oxygen Saturation 95% 05/19/2024 5:30 AM BOILER ASSISTANT OPERATOR Inhaled Oxygen Concentration - - Weight 51.7 kg (114 lb) 05/19/2024 2:16 AM BOILER ASSISTANT OPERATOR Height 160 cm (5' 3) 05/19/2024 2:16 AM BOILER ASSISTANT OPERATOR Body Mass Index 20.19 05/19/2024 2:16 AM BOILER ASSISTANT OPERATOR documented in this encounter Discharge Instructions * Discharge Instructions* Marilia Summers MD - 05/19/2024 6:02 AM BOILER ASSISTANT OPERATOR Keep your hematology appointment for the third. Talk with your oncologist about your pain control and what you should do about it while you wait for that appointment. Also you are still a bit more anemic than your straightedge machine operator helper would like. ER ASSISTANT OPERATOR * Attachments The following attachments cannot be sent through Care Everywhere. * Sickle Cell Crisis ([place]) documented in this encounter Medications at Time [...] sleep. Took 4mg dilaudid po 3 hours TAPER/FINISHER. C/o 10 generalized back pain Triage Assessment [...] Docusate, Senna PRN [id number] I reviewed the [facility] database for prescriptions. Her last fill [...] still a bit more anemic than her straightedge machine operator helper would like and so I encouraged her [...] history is provided by the patient. No multi disciplined language analyst was used. Gianna Hernández is a 29 [...] hCG Serum Qualitative Negative Negative Narrative Lot#: [id number] Exp: 2025-09-28 CBC with platelets and differential [...] Status --------- ------ CBC with platelets and d...[[id number]] Abnormal Final result Manual Differential[[id number]] Abnormal Final result Please view results for these tests on the individual orders. [facility] System Documentation Medical Decision Making [...] with other provider:Did you involve another provider (franchise consultant, , pharmacy, etc.)?: I discussed the [...] my direction. Marilia Summers MD Emergency Medicine [facility] EMERGENCY ROOM Marilia Summers MD 05/19/24 0607 ER ASSISTANT OPERATOR * Moy Stewart RN - 05/19/2024 2:18 AM CST To ED per POV C/o being in sickle cell crisis which awoke her from sleep. Took 4mg dilaudid po 3 hours TAPER/FINISHER. C/o 9/10 generalized back pain Triage Assessment (Adult) Row Name 05/19/24 0217 Triage Assessment Airway WDL WDL Respiratory WDL Respiratory WDL WDL Skin Circulation/Temperature WDL Skin Circulation/Temperature WDL WDL Cardiac WDL Cardiac WDL rhythm Pulse Rate & Regularity tachycardic Peripheral/Neurovascular WDL Peripheral Neurovascular WDL WDL Cognitive/Neuro/Behavioral WDL Cognitive/Neuro/Behavioral WDL WDL ER ASSISTANT OPERATOR documented in this encounter Plan of Treatment Upcoming Encounters Date Type Department Care Team (Late st Contact Info) Description 07/04/2024 9:00 AM CDT Lab [facility] Cancer [address] [phone] Case Samuel MD [address] [place], [place] [address], ROOM [address] [id number] 07/06/2024 8:00 AM CDT Appointment [facility] Advanced Treatment [address] [phone] Case Samuel MD [address] [place], [place] [address], [address] [place], [place] [address] 07/10/2024 11:30 AM CDT Oncology Visit [facility] Cancer [address] [phone] Case Samuel MD [address] [place] [address], ROOM [address] [id number] documented as of this encounter Goals Goal Patient Goal Type Associated Problems Recent Progress Patient-Stated? Author Pain Management General On track( 025 12:40 PM BOILER ASSISTANT OPERATOR) Yes Juhi Benson, SOFIA Note: Goal [...] MANUAL DIFFERENTIAL STAT 05/19/2024 3 :05 AM BOILER ASSISTANT OPERATOR CBC WITH PLATELETS AND DIFFERENTIAL STAT 05/19/2024 3:05 AM BOILER ASSISTANT OPERATOR CBC WITH PLATELETS & DIFFERENTIAL STAT 05/19/2024 3:05 AM BOILER ASSISTANT OPERATOR RETICULOCYTE COUNT STAT 05/19/2024 3: 05 AM BOILER ASSISTANT OPERATOR HEPATIC FUNCTION PANEL STAT 05/19/2024 3:05 AM BOILER ASSISTANT OPERATOR HCG QUALITATIVE STAT 05/19/2024 3:05 AM BOILER ASSISTANT OPERATOR CK TOTAL STAT 05/19/2024 3:05 AM BOILER ASSISTANT OPERATOR BASIC METABOLIC PANEL STAT 05/19/2024 3:05 AM BOILER ASSISTANT OPERATOR documented in this encounter Results * (ABNORMAL) Manual Differential (05/19/2024 3:05 AM BOILER ASSISTANT OPERATOR) % Neutrophils 66 % JARET 05/19/2024 4:12 AM BOILER ASSISTANT OPERATOR [facility] % Lymphocytes 19 % JARET 05/19/2024 4:12 AM BOILER ASSISTANT OPER[address] [facility] % Monocytes 11 % JARET 05/19/2024 4:12 AM BOILER ASSISTANT OPERATOR [facility] % Eosinophils 2 % JARET 05/19/2024 4:12 AM BOILER ASSISTANT OPERATOR [facility] % Basophils 2 % JARET 05/19/2024 4:12 AM [facility] Absolute Neutrophils 9.6(H) 1.6 - 8.3 10e3/uL JARET 05/19/2024 4:12 AM BOILER ASSISTANT OPERATOR [facility] Absolute Lymphocytes 2.8 0.8 - 5.3 10e3/uL JARET 05/19/2024 4:12 AM BOILER ASSISTANT OPERATOR [facility] Absolute Monocytes 1.6(H) 0.0 - 1.3 10e3/uL JARET 05/19/2024 4:12 AM [facility] Absolute Eosinophils 0.3 0.0 - 0.7 10e3/uL [facility] 05/19/2024 4:12 AM [facility] Absolute Basophils 0.3(H) 0.0 - 0.2 10e3/uL [facility] 05/19/2024 4:12 AM [facility] RBC Morphology Confirmed RBC Indices [facility] 05/19/2024 4:12 AM [facility] Platelet Assessment Automated Count Confirmed. Platelet morphology is normal. Automated Count Confirmed. Platelet morphology is normal. [facility] 05/19/2024 4:12 AM [facility] Elliptocytes Slight(A) None Seen [facility] 05/19/2024 4:12 AM [facility] RBC Fragments Rare(A) None Seen [facility] 05/19/2024 4:12 AM [facility] Polychromasia Slight(A) None Seen [facility] 05/19/2024 4:12 AM [facility] Sickle Cells Slight(A) None Seen [facility] 05/19/2024 4:12 AM [facility] Target Cells Slight(A) None Seen [facility] 05/19/2024 4:12 AM [facility] Blood VENOUS LINE / Unknown Venipuncture / Unknown 05/19/2024 3:05 AM [facility] 05/19/2024 3:18 AM [facility] us Marilia Summers MD LAB - BLOOD ORDERABLES Final Result [facility] [address] [place] [address], [facility] * (ABNORMAL) CBC with platelets and differential (05/19/2024 3:05 AM [facility] WBC Count 14.5(H) 4.0 - 11.0 10e3/uL 05/19/2024 4:12 AM [facility] RBC Count 2.45(L) 3.80 - 5.20 10e6/uL 05/19/2024 4:12 AM [facility] Hemoglobin 7.7(L) 11.7 - 15.7 g/dL 05/19/2024 4:12 AM [facility] Hematocrit 22.7(L) 35.0 - 47.0 % 05/19/2024 4:12 AM [facility] MCV 93 78 - 100 fL 05/19/2024 4:12 AM [facility] MCH 31.4 26.5 - 33.0 pg 05/19/2024 4:12 AM [facility] MCHC 33.9 31.5 - 36.5 g/dL 05/19/2024 4:12 AM [facility] RDW 23.0(H) 10.0 - 15.0 % 05/19/2024 4:12 AM [facility] Platelet Count 518(H) 150 - 450 10e3/uL 05/19/2024 4:12 AM [facility] Blood VENOUS LINE / Unknown Venipuncture / Unknown 05/19/2024 3:05 AM BOILER ASSISTANT OPERATOR 05/19/2024 3:18 AM BOILER ASSISTANT OPERATOR Marilia Summers MD LAB - BLOOD ORDERABLES Final Result Performing Organization Address [facility] de Phone Number [facility] [address] [place], [place] [address] [place] [address], [facility] * HCG QUALitative (blood) (05/19/2024 3:05 AM BOILER ASSISTANT OPERATOR) hCG Serum Qualitative Negative Negative JARET 05/19/2024 3:29 AM [facility] Comment:This test is for scr eening purposes. Results should be interpreted along with the clinical picture. Confirmation testing is available if warranted by ordering [id number], HCG Quantitative . Blood VENOUS LINE / Unknown Venipuncture / Unknown 05/19/2024 3:05 AM BOILER ASSISTANT OPERATOR 05/19/2024 3:18 AM BOILER ASSISTANT OPERATOR Narrative [facility] - 05/19/2024 3:29 AM BOILER ASSISTANT OPERATOR Lot#: [id number] Exp: 2025-09-28 Marilia Summers MD LAB - BLOOD ORDERABLES Final Result Performing Organization Address [facility]/ZIP Co de Phone Number [facility] [address] [place] [address] [place] [address], [place] * (ABNORMAL) CK total (05/19/2024 3:05 AM BOILER ASSISTANT OPERATOR) CK 240(H) 26 - 192 U/L 05/19/2024 3:37 AM [facility] Blood VENOUS LINE / Unknown Venipuncture / Unknown 05/19/2024 3:05 AM BOILER ASSISTANT OPERATOR 05/19/2024 3:18 AM BOILER ASSISTANT OPERATOR us Marilia Summers MD LAB - BLOOD ORDERABLES Final Result Performing Organization Address [facility] Co de Phone Number [facility] [address] [place], [place] [address], [place] * (ABNORMAL) Hepatic function panel (05/19/2024 3:05 AM BOILER ASSISTANT OPERATOR) Pathologist [facility] Protein Total 7.9 6.4 - 8.3 g/dL 05/19/2024 3:37 AM [facility] Albumin 4.3 3.5 - 5.2 g/dL 05/19/2024 3:37 AM [facility] Bilirubin Total 2.6(H) <=1.2 mg/dL 05/19/2024 3:37 AM [facility] Alkaline Phosphatase 128 40 - 150 U/L 05/19/2024 3:37 AM [facility] AST 67(H) 0 - 45 U/L 05/19/2024 3:37 AM [facility] ALT 39 0 - 50 U/L 05/19/2024 3:37 AM [facility] Bilirubin Direct 0.65(H) 0.00 - 0.30 mg/dL 05/19/2024 3:37 AM [facility] Blood VENOUS LINE / Unknown Venipuncture / Unknown 05/19/2024 3:05 AM BOILER ASSISTANT OPERATOR 05/19/2024 3:18 AM BOILER ASSISTANT OPERATOR us Marilia Summers MD LAB - BLOOD ORDERABLES Final Result Performing Organization Address City/[facility]/ZIP Co de Phone Number [facility] [address] [place] [address], [place] * (ABNORMAL) Basic metabolic panel (05/19/2024 3:05 AM BOILER ASSISTANT OPERATOR) Pathologist [facility] Sodium 137 135 - 145 mmol/L 05/19/2024 3:37 AM [facility] Potassium 4.2 3.4 - 5.3 mmol/L 05/19/2024 3:37 AM [facility] Chloride 107 98 - 107 mmol/L 05/19/2024 3:37 AM [facility] Carbon Dioxide (CO2) 20(L) 22 - 29 mmol/L 05/19/2024 3:37 AM [facility] Anion Gap 10 7 - 15 mmol/L 05/19/2024 3:37 AM [facility] Urea Nitrogen 11.2 6.0 - 20.0 mg/dL 05/19/2024 3:37 AM [facility] Creatinine 0.81 0.51 - 0.95 mg/dL 05/19/2024 3:37 AM [facility] GFR Estimate >90 >60 mL/min/1.7 3m2 05/19/2024 3:37 AM [facility] Comment:eGFR calculated usin g 2020 CKD-EPI equation. Calcium 9.1 8.8 - 10.4 mg/dL 05/19/2024 3:37 AM [facility] Comment:Reference intervals for this test were updated on 11/09/2023 to reflect our healthy population more accurately. There may be differences in the flagging of prior results with similar values performed with this method. Those prior results can be interpreted in the context of the updated reference intervals. Glucose 99 70 - 99 mg/dL 05/19/2024 3:37 AM [facility] Blood VENOUS LINE / Unknown Venipuncture / Unknown 05/19/2024 3:05 AM BOILER ASSISTANT OPERATOR 05/19/2024 3:18 AM [facility] Marilia Summers MD LAB - BLOOD ORDERABLES Final Result [facility] [address] [place] [address], [facility] * (ABNORMAL) Reticulocyte count (05/19/2024 3:05 AM [facility] Pathologist [facility] % Reticulocyte 23.3(H) 0.5 - 2.0 % 05/19/2024 3:47 AM BOILER ASSISTANT OPERATOR [facility] Absolute Reticulocyte 0.550(H) 0.025 - 0.095 10e6/uL 05/19/2024 3:47 AM BOILER ASSISTANT OPERATOR [facility] Blood VENOUS LINE / Unknown Venipuncture / Unknown 05/19/2024 3:05 AM BOILER ASSISTANT OPERATOR 05/19/2024 3:18 AM BOILER ASSISTANT OPERATOR us Marilia Summers MD LAB - BLOOD ORDERABLES Final Result [facility] [address] [place] [address], [facility] documented in this encounter [...] For 1 dose $Given 05/19/2024 3:10 AM BOILER ASSISTANT OPERATOR 25 mg diphenhydrAMINE (BENADRYL) injection 25 mg 25 mg, Intravenous, ONCE, On Wed05/19/24 at 0530, For 1 dose $Given 05/19/2024 5:17 AM BOILER ASSISTANT OPERATOR 25 mg HYDROmorphone (DILAUDID) injection 2 mg 2 mg, Intravenous, EVERY 1 HOUR PRN, moderate pain, Starting on Wed05/19/24 at 0241, For 3 doses $Given 05/19/2024 5:30 AM BOILER ASSISTANT OPERATOR 2 mg $Given 05/19/2024 4:19 AM BOILER ASSISTANT OPERATOR 2 mg $Given 05/19/2024 3:10 AM BOILER ASSISTANT OPERATOR 2 mg lactated ringers BOLUS 1,000 mL Intravenous, 1,000 mL, ONCE, at 500 mL/hr, Administer over 2 Hours, On Wed05/19/24 at 0300, For 1 dose Rate/Dose Verify 05/19/2024 4:24 AM BOILER ASSISTANT OPERATOR 500 mL/hr $New Bag 05/19/2024 3:15 AM BOILER ASSISTANT OPERATOR 1,000 mLs 500 mL/hr ondansetron (ZOFRAN) injection 8 mg 8 mg, Intravenous, ONCE, Administer over 2-5 Minutes, On Wed05/19/24 at 0530, For 1 dose $Given 05/19/2024 5:17 AM BOILER ASSISTANT OPERATOR 8 mg documented in this encounter Active and Recently Administered Medications Times are shown in BOILER ASSISTANT OPERATOR. Scheduled Medication Order 05/17/2024 05/18/2024 05/19/2024 [...] RN) documented in this encounter Care Teams Gun Fertilizer Relationship Specialty Start Date End Date No Ref-Primary, Physician PCP - General 03/15/24 06/17/24 Mor Ramsey Medical Student 04/03/24 Case Samuel MD [address] [place] [address], [address] [place] [address] Assigned Pediatric Specialist Provider 05/18/24 documented as of this encounter
--- OUTSIDE RECORDS SUMMARY | 2024-07-03 20:31 | XMS_ITS | Encounter Summary ---
Author Organization [place] Address [address] [place] [address]. [place] [address] Care Team Providers Care Slitter Creaser Slotter Helper Name Role Phone No Ref-Primary, Physician Primary Care Provider Mor Ramsey Unavailable Unavailable Case Samuel MD Unavailable Reason for Visit * Reason Comments Chest Pain Encounter Details Date Type Department Care Team (Late st Contact Info) Description 05/27/2024 11:58 AM RUBBER GOODS TESTER WATER - 05/27/2024 6:07 PM [facility] Emergency [facility] Emergency Room [facility] [place] [phone] Blas Mcclellan MD [address] [place] [address] Marly Gross, DO [facility] [address] [place] [id number] Sickle cell disease with crisis (H) Discharge [...] Legal Sex Female 8:25 AM RUBBER GOODS TESTER WATER Gender Identity Not on file Sexual Orientation Not on file documented as of this encounter Last Filed Vital Signs Vital Sign Reading Time Taken Comments Blood Pressure 123/76 05/27/2024 5:15 PM RUBBER GOODS TESTER WATER Pulse 97 05/27/2024 5:15 PM RUBBER GOODS TESTER WATER Temperature 36.9 C (98.5 F) 05/27/2024 11:57 AM RUBBER GOODS TESTER WATER Respiratory Rate 24 05/27/2024 5:37 PM RUBBER GOODS TESTER WATER Oxygen Saturation 96% 05/27/2024 5:15 PM RUBBER GOODS TESTER WATER Inhaled Oxygen Concentration - - Weight 51.7 kg (114 lb) 05/27/2024 11:56 AM RUBBER GOODS TESTER WATER Height 154.9 cm (5' 1) 05/27/2024 11:56 AM RUBBER GOODS TESTER WATER Body Mass Index 21.54 05/27/2024 11:56 AM RUBBER GOODS TESTER WATER documented in this encounter Discharge Instructions * Attachments The following attachments cannot be sent through Care Everywhere. * Sickle Cell Crisis (Danish) documented in this encounter Medications at Time [...] Hemoglobin 7.1. [facility] Course Timeline: 5:01 PM I introduced myself to the patient. She would like her last dose of dilaudid per care plan and is comfortable with being discharged home afterwards. She has follow up with her Plug Saw Operator in2 days which I encouraged her [...] on file Marly Gross DO Emergency Medicine [facility] EMERGENCY ROOM [address] [facility] [phone] Marly Gross DO 05/27/24 [id number] ER GOODS TESTER WATER * Blas Mcclellan MD - 05/27/2024 12:32 [...] Documented in chart and Outpatient Record: [facility] ED 05/23/2024 and [facility] visit 05/25/2024 Care impacted by chronic illness:Documented in Chart Did you consider but not order tests?: Work up considered but not performed and documented in chart, if applicable Did you interpret images independently?: Independent interpretation of ECG and images noted in documentation, when applicable. Consultation discussion with other provider:Did you involve another provider (senior recruitment consultant, , pharmacy, etc.)?: No Admission considered. 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 Per chart review, patient was seen by oncology at [facility] on 05/01/2024 for new outpatient hematology visit for initiation of care for sickle cell disease. [facility] [place] [place] [facility] She reported [...] had 2 ports placed on 05/25/2024 at [facility]. Apheresis on the right, 6 trinidadian smart port on the left. Patient tolerated [...] Currently Drug use: Never Social History Narrative Aert-fc-huvt mom. Recently moved to [place] from [place], [place]. She is 1 of 9 [...] Social Connections: Socially Integrated (03/28/2024) [facility] Do you often feel [...] was found. Rate: 91 bpm Rhythm: Sinus [place]: 39 62 23 DC Interval: 142 ms QRS Interval: 80 ms [...] my direction. Blas Mcclellan M.D. Emergency Medicine [facility] EMERGENCY ROOM [address] [place] [phone] Dept: [phone] Blas Mcclellan MD 05/27/24 1507 ER GOODS TESTER WATER * Yanely Avendano RN - 05/27/2024 12:02 [...] WDL Cognitive/Neuro/Behavioral WDL Cognitive/Neuro/Behavioral WDL WDL ER GOODS TESTER WATER documented in this encounter Plan of Treatment Upcoming Encounters Date Type Department Care Team (Late st Contact Info) Description 07/04/2024 9:00 AM CDT Lab [facility] [address] [phone] Case Samuel MD [address] [place] [address], [address] [place], [place] [phone] 07/06/2024 8:00 AM CDT Appointment [facility] Advanced Treatment [address] [phone] Case Samuel MD [address] [place] [address], [address] [place], [place] [phone] 07/10/2024 11:30 AM CDT Oncology Visit [facility] [address] [phone] Case Samuel MD [address] [place], [place] [address], ROOM [address] [id number] documented as of this encounter Goals Goal Patient Goal Type Associated Problems Recent Progress Patient-Stated? Author Pain Management General On track( 025 12:40 PM RUBBER GOODS TESTER WATER) Yes Juhi Benson, SOFIA Note: Goal Statement: [...] Associated Diagnosis Comments MANUAL DIFFERENTIAL STAT 05/27/2024 3:13 PM RUBBER GOODS TESTER WATER CBC WITH PLATELETS AND DIFFERENTIAL STAT 05/27/2024 3:13 PM RUBBER GOODS TESTER WATER CBC WITH PLATELETS & DIFFERENTIAL STAT 05/27/2024 3:13 PM RUBBER GOODS TESTER WATER RETICULOCYTE COUNT STAT 05/27/2024 3: 13 PM RUBBER GOODS TESTER WATER XR CHEST 2 VIEWS STAT 05/27/2024 2:57 PM RUBBER GOODS TESTER WATER COMPREHENSIVE METABOLIC PANEL STAT 05/27/2024 2:30 PM RUBBER GOODS TESTER WATER ECG 12-LEAD WITH MUSE SJN,SJO,WWH STAT 05/27/2024 12:12 PM RUBBER GOODS TESTER WATER documented in this encounter Results * (ABNORMAL) Manual Differential (05/27/2024 3:13 PM RUBBER GOODS TESTER WATER) % Neutrophils 71 % JARET 05/27/2024 3:51 PM RUBBER GOODS TESTER WATER [facility] % Lymphocytes 20 % JARET 05/27/2024 3:51 PM RUBBER GOODS TESTER WATER [facility] % Monocytes 9 % JARET 05/27/2024 3:51 PM RUBBER GOODS TESTER WATER [facility] % Eosinophils 0 % JARET 05/27/2024 3:51 PM RUBBER GOODS TESTER WATER [facility] % Basophils 0 % JARET 05/27/2024 3:51 PM RUBBER GOODS TESTER WATER [facility] Absolute Neutrophils 11.1(H) 1.6 - 8.3 10e3/uL JARET 05/27/2024 3:51 PM RUBBER GOODS TESTER WATER [facility] Absolute Lymphocytes 3.1 0.8 - 5.3 10e3/uL JARET 05/27/2024 3:51 PM RUBBER GOODS TESTER WATER [facility] Absolute Monocytes 1.4(H) 0.0 - 1.3 10e3/uL JARET 05/27/2024 3:51 PM RUBBER GOODS TESTER WATER [facility] Absolute Eosinophils 0.0 0.0 - 0.7 10e3/uL JARET 05/27/2024 3:51 PM RUBBER GOODS TESTER WATER [facility] Absolute Basophils 0.0 0.0 - 0.2 10e3/uL JARET 05/27/2024 3:51 PM RUBBER GOODS TESTER WATER [facility] RBC Morphology Confirmed RBC Indices JARET 05/27/2024 3:51 PM [facility] Platelet Assessment Automated Count Confirmed. Platelet morphology is normal. Automated Count Confirmed. Platelet morphology is normal. JARET 05/27/2024 3:51 PM RUBBER GOODS TESTER WATER [facility] Acanthocytes Slight(A) None Seen JARET 05/27/2024 3:51 PM RUBBER GOODS TESTER WATER [facility] Elliptocytes Slight(A) None Seen JARET 05/27/2024 3:51 PM RUBBER GOODS TESTER WATER [facility] RBC Fragments Slight(A) None Seen JARET 05/27/2024 3:51 PM RUBBER GOODS TESTER WATER [facility] Polychromasia Slight(A) None Seen JARET 05/27/2024 3:51 PM [facility] Sickle Cells Moderate(A) None Seen JARET 05/27/2024 3:51 PM [facility] Target Cells Slight(A) None Seen JARET 05/27/2024 3:51 PM [facility] Blood (Portacath) Venipuncture / Unknown 05/27/2024 3:13 PM RUBBER GOODS TESTER WATER 05/27/2024 3:15 PM RUBBER GOODS TESTER WATER us Blas Mcclellan MD LAB - BLOOD ORDERABLES Final Result [facility] [address] [facility] [place] [address], [facility] * (ABNORMAL) CBC with platelets and differential (05/27/2024 3:13 PM RUBBER GOODS TESTER WATER) WBC Count 15.7(H) 4.0 - 11.0 10e3/uL [...] 78 - 100 fL 05/27/2024 3:48 PM RUBBER GOODS TESTER WATER [facility] MCH 32.1 26.5 - [...] (Portacath) Venipuncture / Unknown 05/27/2024 3:13 PM RUBBER GOODS TESTER WATER 05/27/2024 3:15 PM RUBBER GOODS TESTER WATER Blas Mcclellan MD LAB - BLOOD ORDERABLES Final Result Performing Organization Address [facility]/ZIP Co de Phone Number [facility] [address] [place] [address] [place] [address], [facility] * (ABNORMAL) Reticulocyte count (05/27/2024 3:13 PM RUBBER GOODS TESTER WATER) [facility] % Reticulocyte 28.0(H) 0.5 - 2.0 % 05/27/2024 3:19 PM [facility] Absolute Reticulocyte 0.619(H) 0.025 - 0.095 10e6/uL 05/27/2024 3:19 PM RUBBER GOODS TESTER WATER [facility] Blood (Portacath) Venipuncture / Unknown 05/27/2024 3:13 PM RUBBER GOODS TESTER WATER 05/27/2024 3:15 PM RUBBER GOODS TESTER WATER Blas Mcclellan MD LAB - BLOOD ORDERABLES Final Result Performing Organization Address [facility]/State/ZIP Co de Phone Number [facility] [place] [facility], [facility] * Chest XR, PA & LAT (05/27/2024 2:57 PM RUBBER GOODS TESTER WATER) Anatomical Region Laterality Modality Chest Digital Radiogra phy 05/27/2024 2:57 PM RUBBER GOODS TESTER WATER Impressions 05/27/2024 3:03 PM RUBBER GOODS TESTER WATER IMPRESSION: New right and left chest ports, with catheter tips at the superior cavoatrial junction. Unchanged patchy opacities in the right greater mid to lower lungs. No consolidation or pleural effusion. Stable mediastinal silhouette. Narrative 05/27/2024 3:03 PM RUBBER GOODS TESTER WATER EXAM: XR CHEST 2 VIEWS LOCATION: [facility] DATE: 05/27/2024 INDICATION: chest pain, sickle cell, bilateral port placement 3 days ago COMPARISON: 05/22/2024 Procedure Note Rachel Jeo MD - 05/27/2024 EXAM: XR CHEST 2 VIEWS LOCATION: [facility] DATE: 05/27/2024 INDICATION: chest pain, sickle cell, bilateral port placement 3 days ago COMPARISON: 05/22/2024 IMPRESSION: New right and left chest ports, with catheter tips at thesuperior cavoatrial junction. Unchanged patchy opacities in the rightgreater mid to lower lungs. No consolidation or pleural effusion. Stablemediastinal silhouette. us Blas Mcclellan MD IMG DIAGNOSTIC IMAGING ORDERA BLES Final Result * (ABNORMAL) Comprehensive metabolic panel (05/27/2024 2:30 PM RUBBER GOODS TESTER WATER) Sodium 136 135 - 145 mmol/L 05/27/2024 [...] [facility] Comment:eGFR calculated usin g 2020 CKD-EPI equation. Calcium 9.3 8.8 - 10.4 mg/dL 05/27/2024 2:59 PM RUBBER GOODS TESTER WATER [facility] Chloride 106 98 - 107 mmol/L 05/27/2024 2:59 PM RUBBER GOODS TESTER WATER [facility] Glucose 97 70 - 99 mg/dL 05/27/2024 2:59 PM RUBBER GOODS TESTER WATER [facility] Alkaline Phosphatase 94 40 - 150 U/L 05/27/2024 2:59 PM RUBBER GOODS TESTER WATER [facility] AST 51(H) 0 - [...] Unknown Venipuncture / Unknown 05/27/2024 2:30 PM RUBBER GOODS TESTER WATER 05/27/2024 2:36 PM RUBBER GOODS TESTER WATER Blas Mcclellan MD LAB - BLOOD ORDERABLES Final Result [facility] [address] [place] [address], [facility] * ECG 12-LEAD WITH MUSE (LHE) (05/27/2024 12:12 PM RUBBER GOODS TESTER WATER) Systolic Blood Pressure 110 mmHg RADIOLOGY RESULTS Diastolic Blood Pressure 63 mmHg RADIOLOGY RESULTS Ventricular Rate 91 BPM RAD IOLOGY RESULTS Atrial Rate 91 BPM RADIOLOG Y RESULTS DC Interval 142 ms RADIOLOG Y RESULTS QRS Duration 80 ms RADIOLO GY RESULTS QT 352 ms RADIOLOGY RESULTS QTc 432 ms RADIOLOGY RESULTS P [place] 39 degrees RADIOLOGY RESULTS R AXIS 62 degrees RADIOLOGY RESULTS T [place] 23 degrees RADIOLOGY RESULTS Interpretation ECG Sinus rhythm Nonspecific T wave abnormality Abnormal ECG When compared with ECG of 23-May-2024 18:54, Nonspecific T wave abnormality now evident in Inferior leads Nonspecific T wave abnormality now evident in Anterior leads Confirmed by SEE ED PROVIDER NOTE FOR, ECG INTERPRETATION ([id number]), assistant film editor BEN PRAKASH ([id number]) on 05/27/2024 12:22:37 PM RADIOLOGY RESULTS 05/27/2024 12:1 2 PM RUBBER GOODS TESTER WATER 05/27/2024 12:22 PM RUBBER GOODS TESTER WATER Blas Mcclellan MD ECG ORDERABLES Edited Result [...] For 1 dose $Given 05/27/2024 4:34 PM RUBBER GOODS TESTER WATER 25 mg heparin lock flush 100 unit/mL injection 5 mL 5 mL, Intracatheter, ONCE, On 05/27/24 at 1730, For 1 dose $Given 05/27/2024 5:33 PM RUBBER GOODS TESTER WATER 5 mLs HYDROmorphone (DILAUDID) injection 2 mg 2 mg, Intravenous, ONCE, On 05/27/24 at 1300, For 1 dose $Given 05/27/2024 2:43 PM RUBBER GOODS TESTER WATER 2 mg HYDROmorphone (DILAUDID) injection 2 mg 2 mg, Intravenous, ONCE, On 05/27/24 at 1630, For 1 dose $Given 05/27/2024 4:37 PM RUBBER GOODS TESTER WATER 2 mg HYDROmorphone (DILAUDID) injection 2 mg 2 mg, Intravenous, ONCE, On 05/27/24 at 1730, For 1 dose $Given 05/27/2024 5:09 PM RUBBER GOODS TESTER WATER 2 mg lactated ringers BOLUS 1,000 mL Intravenous, 1,000 mL, ONCE, On 05/27/24 at 1300, For 1 dose $New Bag 05/27/2024 2:33 PM RUBBER GOODS TESTER WATER 1,000 mLs ondansetron (ZOFRAN) injection 8 mg 8 mg, Intravenous, ONCE, Administer over 2-5 Minutes, On 05/27/24 at 1300, For 1 dose $Given 05/27/2024 2:40 PM RUBBER GOODS TESTER WATER 8 mg documented in this encounter Active and Recently Administered Medications Times are shown in RUBBER GOODS TESTER WATER. Scheduled Medication Order 05/25/2024 05/26/2024 05/27/2024 diphenhydrAMINE [...] RN) documented in this encounter Care Teams Slitter Creaser Slotter Helper Relationship Specialty Start Date End Date No Ref-Primary, Physician PCP - General 03/15/24 06/17/24 Mor Ramsey Medical Student 04/03/24 Case Samuel MD [address] [place] [address], [address] [place] [address] Assigned Pediatric Specialist Provider 05/18/24 documented as of this encounter
--- OUTSIDE RECORDS SUMMARY | 2024-07-03 20:31 | XMS_ITS | Encounter Summary ---
Author Organization [place] Address [address] [place] [address]. [place] [address] Care Team Providers Care Permaculture Contractor Name Role Phone No Ref-Primary, Physician Primary Care Provider Mor Ramsey Unavailable Unavailable Case Samuel MD Unavailable [phone] Encounter Details Date Type Department Care Team [...] file Legal Sex Female 8:25 AM PATIENT COORDINATOR FRONT DESK Gender Identity Not on file Sexual Orientation Not on file documented as of this encounter Plan of Treatment Upcoming Encounters Date Type Department Care Team (Late st Contact Info) Description 07/04/2024 9:00 AM CDT Lab [facility] [address] [phone] Case Samuel MD [address] [place] [address], [address] [address] 07/06/2024 8:00 AM CDT Appointment [facility] Advanced Treatment [address] [phone] Case Samuel MD [address] [place], [place] [address], [address] [place], [place] [phone] 07/10/2024 11:30 AM CDT Oncology Visit [facility] [address] [phone] Case Samuel MD [address] [place], [place] [address], [address] [phone] documented as of this encounter Goals Goal Patient Goal Type Associated Problems Recent Progress Patient-Stated? Author Pain Management General On track( 025 12:40 PM PATIENT COORDINATOR FRONT DESK) Yes Juhi Benson, RN Note: Goal Statement: [...] on filedocumented in this encounter Care Teams Permaculture Contractor Relationship Specialty Start Date End Date No Ref-Primary, Physician PCP - General 03/15/24 06/17/24 Mor Ramsey Medical Student 04/03/24 Case Samuel MD [address] [place] [address], [address] [place] [address] Assigned Pediatric Specialist Provider 05/18/24 documented as of this encounter
--- OUTSIDE RECORDS SUMMARY | 2024-07-03 20:31 | XMS_ITS | Encounter Summary ---
Author Organization [facility] Address [address] [place] [id number] Care Team Providers Care Paid Search Specialist Name Role Phone No Ref-Primary, Physician Primary Care Provider Mor Ramsey Unavailable Unavailable Case Samuel MD Unavailable [phone] Reason for Visit * Reason Comments Sickle Cell Pain Crisis Chest Pain Encounter Details Date Type Department Care Team (Late st Contact Info) Description 05/20/2024 7:30 AM [facility] - 05/20/2024 11:15 AM [facility] Emergency [facility] Emergency Room [address] [place] [address] Stiven Madsen MD [facility] [address], [place] [id number] Sickle cell pain crisis (H) Discharge Disposition: [...] on file Legal Sex Female 8:25 AM [facility] SPLINE GR[facility] Gender Identity Not on file Sexual Orientation Not on file documented as of this encounter Last Filed Vital Signs Vital Sign Reading Time Taken Comments Blood Pressure 115/59 05/20/2024 11:00 AM [facility] Pulse 76 05/20/2024 11:00 AM [facility] Temperature 37.3 C (99.2 F) 05/20/2024 7:33 AM [facility] Respiratory Rate 20 05/20/2024 11:00 AM [facility]PL[facility] Oxygen Saturation 100% 05/20/2024 11:00 AM [facility] Inhaled Oxygen Concentration - - Weight 50.8 kg (112 lb) 05/20/2024 7:33 AM [facility] Height 154.9 cm (5' 1) 05/20/2024 7:33 AM [facility] Body Mass Index 21.16 05/20/2024 7:33 AM [facility] documented in this encounter Discharge Instructions * Discharge Instructions* Stiven Madsen MD - 05/20/2024 11:08 AM [facility] SPLINE GRINDER Please continue working with your quality control operator after this and recent hospital visits. Try to make sure that you are drinking plenty of liquids to keep yourself hydrated. Continue to take your usual pain medications. If you have other concerns specifically productive cough, severe chest pain, shortness of breath, or other immediate concern we should reevaluate in the emergency department. AND SPLINE GRINDER documented in this encounter Medications at [...] in 10 minutes. Message sent to provider. AND SPLINE GRINDER * Suzanne Cadet RN - 05/20/2024 10:00 AM CST Pt requesting additional medication for pain. Also requesting medication for itching. Message sent to provider. Medicated per provider order. AND SPLINE GRINDER * Yanna Huerta RN - 05/20/2024 8:43 AM CST IV infiltrated and removed, LES RN coming to try for IV AND SPLINE GRINDER * Yanna Huerta RN - 05/20/2024 8:10 AM CST Introduced self to patient. Whiteboard updated. Plan of care and length of time discussed with patient. Will continue to monitor. Yanna Huerta RN.......05/20/2024 8:37 AM AND SPLINE GRINDER * Stiven Madsen MD - 05/20/2024 7:31 [...] cell disease. Radial instantly establishing care in [place] and with several ED visits across the [...] with other provider:Did you involve another provider (retirement sales consultant, MH, pharmacy, etc.)?: No Discharge. 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 Recently moved to [place] from [place], [place]. She is 1 of 9 [...] Social Connections: Socially Integrated (03/28/2024) Received from [facility] Social Connections Do you often feel [...] wave abnormality. Rate: 86 Rhythm: Sinus rhythm [place]: 18 55 25 [place] Interval: 154 QRS [...] my direction. Stiven Madsen M.D. Emergency Medicine [facility] [address] [place] [phone] Dept: [phone] Stiven Madsen MD 05/20/24 1355 AND SPLINE GRINDER * Stefani Huizar RN - 05/20/2024 7:27 AM CST Pt c/o pain all over body, hx sickle cell and feels like flare up started 2 days ago. Pt also c/o left sided chest pain, pain with taking a deep breath. Pt was seen here yesterday as well for same states did not have chest pain then AND SPLINE GRINDER AND SPLINE GRINDER documented in this encounter Plan of Treatment Upcoming Encounters Date Type Department Care Team (Late st Contact Info) Description 07/04/2024 9:00 AM CDT Lab [facility] Cancer [address] [phone] Case Samuel MD [address] [place] [address], [address] [place] [phone] 07/06/2024 8:00 AM CDT Appointment [facility] Advanced Treatment [address] [phone] Case Samuel MD [address] [place] [address], [address] [place], [place] [phone] 07/10/2024 11:30 AM CDT Oncology Visit [facility] Cancer [address] [phone] Case Samuel MD [address] [place], [place] [address], ROOM [address] [id number] documented as of this encounter Goals Goal Patient Goal Type Associated Problems Recent Progress Patient-Stated? Author Pain Management General On track( 025 12:40 PM GEAR AND SPLINE GRINDER) Yes Juhi Benson, RN Note: Goal [...] CHEST 2 VIEWS STAT 05/20/2024 9:30 AM [facility]PL[facility]ER EXTRA TUBE STAT 05/20/2024 9:09 AM [facility]PL[facility] EXTRA GREEN TOP (LITHIUM HEPARIN) TUBE STAT 05/20/2024 9:09 AM [facility]PL[facility] RBC AND PLATELET MORPHOLOGY STAT 05/20/2024 9:09 AM [facility] SPL[facility] CBC WITH PLATELETS AND DIFFERENTIAL STAT 05/20/2024 9:09 AM [facility] SPL[facility]ER CBC WITH PLATELETS & DIFFERENTIAL STAT 05/20/2024 9:09 AM [facility] SPLINE [facility]ER RETICULOCYTE COUNT STAT 05/20/2024 9: 09 AM [facility] SPLINE GR[facility]ER BASIC METABOLIC PANEL STAT 05/20/2024 9:09 AM [facility] SPLINE GR[facility]ER BASIC METABOLIC PANEL STAT 05/20/2024 8:21 AM [facility] SPLINE GR[facility]ER ECG 12-LEAD WITH MUSE SJN,SJO,WWH STAT 05/20/2024 7:36 AM GEAR [facility] SPLINE GRINDER documented in this encounter Results * Chest XR, PA & LAT (05/20/2024 9:30 AM GEAR AND SPLINE GRINDER) Anatomical Region Laterality Modality Chest Digital Radiogra phy 05/20/2024 9:30 AM [facility] SPLINE GR[facility]ER Impressions 05/20/2024 9:38 AM [facility] SPLINE [facility]ER IMPRESSION: Slightly increased bilateral mid to lower lung patchy opacities which may reflect atelectatic changes or pneumonic infiltrates. No pleural effusion. Normal heart size. Multiple H-shaped thoracic vertebra consistent with the history of sickle cell disease. Narrative 05/20/2024 9:38 AM GEAR AND SPLINE GRINDER EXAM: XR CHEST 2 VIEWS LOCATION: [facility] DATE: 05/20/2024 INDICATION: Chest pain, sickle cell patient COMPARISON: Chest x-ray 05/08/2024 Procedure Note Twin Marin MD - 05/20/2024 EXAM: XR CHEST 2 VIEWS LOCATION: [facility] DATE: 05/20/2024 INDICATION: Chest pain, sickle cell patient COMPARISON: Chest x-ray 05/08/2024 IMPRESSION: Slightly increased bilateral mid to lower lung patchyopacities which may reflect atelectatic changes or pneumonic infiltrates.No pleural effusion. Normal heart size. Multiple H-shaped thoracicvertebra consistent with the history of sickle cell disease. Stiven Madsen MD IMG DIAGNOSTIC IMAGING ORDERA BLES Final Result * (ABNORMAL) RBC and Platelet Morphology (05/20/2024 9:09 AM GEAR AND SPLINE GRINDER) RBC Morphology Confirmed RBC Indices 05/20/2024 9:47 AM [facility] Platelet Assessment Automated Count Confirmed. Platelet morphology is normal. Automated Count Confirmed. Platelet morphology is normal. JARET 05/20/2024 9:47 AM [facility] SPLINE GRINDER [facility] Polychromasia Slight(A) None Seen JARET 05/20/2024 9:47 AM [facility] Reactive Lymphocytes Present(A) None Seen JARET 05/20/2024 9:47 AM [facility] Sickle Cells Moderate(A) None Seen JARET 05/20/2024 9:47 AM [facility] Target Cells Slight(A) None Seen JARET 05/20/2024 9:47 AM [facility] Blood VENOUS LINE / Unknown Venipuncture / Unknown 05/20/2024 9:09 AM [facility] SPLINE GRINDER 05/20/2024 9:14 AM [facility] SPLINE GRINDER Stiven Madsen MD LAB - BLOOD ORDERABLES Final Result [facility] [address] [place], [place] [address], [place] * (ABNORMAL) Basic metabolic panel (05/20/2024 9:09 AM GEAR AND SPLINE GRINDER) Sodium 137 135 - 145 mmol/L 05/20/2024 9:42 AM [facility] Potassium 4.8 3.4 - 5.3 mmol/L 05/20/2024 9:42 AM [facility] Chloride 105 98 - 107 mmol/L 05/20/2024 9:42 AM [facility] Carbon Dioxide (CO2) 22 22 - 29 mmol/L 05/20/2024 9:42 AM [facility] Anion Gap 10 7 - 15 mmol/L 05/20/2024 9:42 AM [facility] Urea Nitrogen 7.4 6.0 - 20.0 mg/dL 05/20/2024 9:42 AM [facility] Creatinine 0.82 0.51 - 0.95 mg/dL 05/20/2024 9:42 AM [facility] GFR Estimate >90 >60 mL/min/1.7 3m2 05/20/2024 9:42 AM [facility] Comment:eGFR calculated usin g 2020 CKD-EPI equation. Calcium 9.3 8.8 - 10.4 mg/dL 05/20/2024 9:42 AM [facility] Comment:Reference intervals for this test were updated on 11/09/2023 to reflect our healthy population more accurately. There may be differences in the flagging of prior results with similar values performed with this method. Those prior results can be interpreted in the context of the updated reference intervals. Glucose 107(H) 70 - 99 mg/dL 05/20/2024 9:42 AM [facility] Blood VENOUS LINE / Unknown Venipuncture / Unknown 05/20/2024 9:09 AM [facility] SPLINE GRINDER 05/20/2024 9:14 AM [facility] us Stiven Madsen MD LAB - BLOOD ORDERABLES Final Result [facility] [address] [place] [address], [place] * Extra Green Top ([place] Heparin) Tube (05/20/2024 9:09 AM [facility]) Hold Specimen JIC 05/20/2024 10:16 AM [facility] Blood VENOUS LINE / Unknown Venipuncture / Unknown 05/20/2024 9:09 AM [facility] SPLINE GRINDER 05/20/2024 9:14 AM [facility] Deshawn Arredondo MD LAB - BLOOD ORDERABLES Liss bola Result [facility] [address] [place], [place] [address] * (ABNORMAL) CBC with platelets and differential (05/20/2024 9:09 AM [facility]) WBC Count 16.0(H) 4.0 - 11.0 10e3/uL 05/20/2024 9:47 AM [facility] RBC Count 2.57(L) 3.80 - 5.20 10e6/uL 05/20/2024 9:47 AM [facility] Hemoglobin 8.4(L) 11.7 - 15.7 g/dL 05/20/2024 9:47 AM [facility] Hematocrit 23.7(L) 35.0 - 47.0 % 05/20/2024 9:47 AM [facility] MCV 92 78 - 100 fL 05/20/2024 9:47 AM [facility] MCH 32.7 26.5 - 33.0 pg 05/20/2024 9:47 AM [facility] MCHC 35.4 31.5 - 36.5 g/dL 05/20/2024 9:47 AM [facility] RDW 22.8(H) 10.0 - 15.0 % 05/20/2024 9:47 AM [facility] Platelet Count 541(H) 150 - 450 10e3/uL 05/20/2024 9:47 AM [facility] % Neutrophils 59 % 05/20/2024 9:47 AM [facility] % Lymphocytes 23 % 05/20/2024 9:47 AM [facility] % Monocytes 15 % 05/20/2024 9:47 AM [facility] % Eosinophils 2 % 05/20/2024 9:47 AM [facility] % Basophils 1 % 05/20/2024 9:47 AM [facility] % Immature Granulocytes 1 % 05/20/2024 9:47 AM [facility] NRBCs per 100 WBC 2(H) <1 /100 025 9:47 AM [facility] Absolute Neutrophils 9.4(H) 1.6 - 8.3 10e3/uL 05/20/2024 9:47 AM [facility] Absolute Lymphocytes 3.6 0.8 - 5.3 10e3/uL 05/20/2024 9:47 AM [facility] Absolute Monocytes 2.4(H) 0.0 - 1.3 10e3/uL 05/20/2024 9:47 AM [facility] Absolute Eosinophils 0.3 0.0 - 0.7 10e3/uL 05/20/2024 9:47 AM [facility] Absolute Basophils 0.2 0.0 - 0.2 10e3/uL 05/20/2024 9:47 AM [facility] Absolute Immature Granulocytes 0.2 <=0.4 10e3/uL 05/20/2024 9:47 AM [facility] Absolute NRBCs 0.2 10e3/uL 05/20/2024 9:47 AM [facility] Blood VENOUS LINE / Unknown Venipuncture / Unknown 05/20/2024 9:09 AM [facility] SPLINE GRINDER 05/20/2024 9:14 AM [facility] us Stiven Madsen MD LAB - BLOOD ORDERABLES Final Result [facility] [address] [place] [address], [facility] * (ABNORMAL) Reticulocyte count (05/20/2024 9:09 AM [facility]) [facility] % Reticulocyte 25.1(H) 0.5 - 2.0 % 05/20/2024 9:19 AM [facility] Absolute Reticulocyte 0.646(H) 0.025 - 0.095 10e6/uL 05/20/2024 9:19 AM [facility] Blood VENOUS LINE / Unknown Venipuncture / Unknown 05/20/2024 9:09 AM [facility]AR AND SPLINE GRINDER 05/20/2024 9:14 AM [facility] AND SPLINE GRINDER Stiven Madsen MD LAB - BLOOD ORDERABLES Final Result [facility] [address] [place] [address], [facility] * (ABNORMAL) Basic metabolic panel (05/20/2024 8:21 AM GEAR AND SPLINE GRINDER) Sodium 136 135 - 145 mmol/L 05/20/2024 8:47 AM [facility] Potassium 5.1 3.4 - 5.3 mmol/L 05/20/2024 8:47 AM [facility] Chloride 105 98 - 107 mmol/L 05/20/2024 8:47 AM [facility] Carbon Dioxide (CO2) 21(L) 22 - 29 mmol/L 05/20/2024 8:47 AM [facility] Anion Gap 10 7 - 15 mmol/L 05/20/2024 8:47 AM [facility] Urea Nitrogen 7.5 6.0 - 20.0 mg/dL 05/20/2024 8:47 AM [facility] Creatinine 0.84 0.51 - 0.95 mg/dL 05/20/2024 8:47 AM [facility] GFR Estimate >90 >60 mL/min/1.7 3m2 05/20/2024 8:47 AM [facility] Comment:eGFR calculated usin g 2020 CKD-EPI equation. Calcium 9.1 8.8 - 10.4 mg/dL 05/20/2024 8:47 AM [facility] Comment:Reference intervals for this test were updated on 11/09/2023 to reflect our healthy population more accurately. There may be differences in the flagging of prior results with similar values performed with this method. Those prior results can be interpreted in the context of the updated reference intervals. Glucose 95 70 - 99 mg/dL 05/20/2024 8:47 AM [facility] Blood VENOUS LINE / Unknown Venipuncture / Unknown 05/20/2024 8:21 AM [facility]AR AND SPLINE GRINDER 05/20/2024 8:31 AM [facility] SPLINE GR[facility]ER Stiven Madsen MD LAB - BLOOD ORDERABLES Final Result [facility] [address] [place] [address], [facility] * ECG 12-LEAD WITH MUSE (LHE) (05/20/2024 7:36 AM GEAR AND SPLINE GRINDER) Systolic Blood Pressure 111 mmHg RADIOLOGY RESULTS Diastolic Blood Pressure 56 mmHg RADIOLOGY RESULTS Ventricular Rate 86 BPM RAD IOLOGY RESULTS Atrial Rate 86 BPM RADIOLOG Y RESULTS [place] Interval 154 ms RADIOLOG Y RESULTS QRS Duration 78 ms RADIOLO GY RESULTS QT 370 ms RADIOLOGY RESULTS QTc 442 ms RADIOLOGY RESULTS P [place] 18 degrees RADIOLOGY RESULTS R AXIS 55 degrees RADIOLOGY RESULTS T [place] 25 degrees RADIOLOGY RESULTS Interpretation ECG Sinus rhythm Nonspecific T wave abnormality Abnormal ECG When compared with ECG of 14-May-2024 22:12, Nonspecific T wave abnormality now evident in Inferior leads Confirmed by SEE ED PROVIDER NOTE FOR, ECG INTERPRETATION (0332), photograph editor Neeraj Allison ([id number]) on 05/20/2024 7:48:17 AM RADIOLOGY RESULTS 05/20/2024 7:36 AM GEAR AND SPLINE GRINDER 05/20/2024 7:48 AM [facility] SPLINE [facility]ER us Deshawn Arredondo MD ECG ORDERABLES Edited [...] For 1 dose $Given 05/20/2024 9:59 AM [facility]AR AND SPLINE GRINDER 25 mg HYDROmorphone (DILAUDID) injection 2 mg 2 mg, Intravenous, EVERY HOUR, First dose on 05/20/24 at 0800, For 3 doses $Given 05/20/2024 10:58 AM GEAR AND SPLINE GRINDER 2 mg $Given 05/20/2024 9:56 AM GEAR AND SPLINE GRINDER 2 mg $Given 05/20/2024 8:22 AM GEAR AND SPLINE GRINDER 2 mg lactated ringers infusion at 500 mL/hr, Intravenous, CONTINUOUS, Starting on 05/20/24 at 0800, Until 05/20/24 at 0959 Restarted 05/20/2024 9:30 AM GEAR AND SPLINE GRINDER 500 mL/hr $New Bag 05/20/2024 8:22 AM GEAR AND SPLINE GRINDER 500 mL/hr ondansetron (ZOFRAN) injection 8 mg 8 mg, Intravenous, EVERY 6 HOURS PRN, nausea, vomiting, Administer over 2-5 Minutes, Starting on 05/20/24 at 0744 $Given 05/20/2024 8:22 AM GEAR AND SPLINE GRINDER 8 mg documented in this encounter Active and Recently Administered Medications Times are shown in GEAR AND SPLINE GRINDER. Scheduled Medication Order 05/18/2024 05/19/2024 05/20/2024 diphenhydrAMINE [...] no IV access)0930 (Restarted - Provider: Suzanne Cadet, SOFIA)1108 (Stopped - Provider: Suzanne Cadet RN) PRN Medication Order 05/18/2024 05/19/2024 05/20/2024 ondansetron (ZOFRAN) injection 8 mg 8 mg, Intravenous, EVERY 6 HOURS PRN, nausea, vomiting, Administer over 2-5 Minutes, Starting on 05/20/24 at 0744 0822 ($Given - Provi nas: Yanna Huerta RN) documented in this encounter Care Teams Paid Search Specialist Relationship Specialty Start Date End Date No Ref-Primary, Physician PCP - General 03/15/24 06/17/24 Mor Ramsey Medical Student 04/03/24 Case Samuel MD [address] [place] [address], [address] [place] [address] Assigned Pediatric Specialist Provider 05/18/24 documented as of this encounter
--- OUTSIDE RECORDS SUMMARY | 2024-07-03 20:31 | XMS_ITS | Encounter Summary ---
Author Organization [place] Address [address] [place] [address] Care Team Providers Care Entry Level Name Role Phone No Ref-Primary, Physician Primary Care Provider [place] Ramsey Unavailable Unavailable Case Samuel MD Unavailable [phone] Reason for Referral * Therapeutic Imaging/IR (Routine: Next available opening) - Closed Specialty Diagnoses / Procedures Referred By Contac t Referred To Contact Radiology. 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 [facility] Interventional Radiology [address] [place] [address] Phone: tel: Referral ID Status Reason Start Date Expiration Date Visits Re quested Visits Authorized [id number] 1 1 Encounter Details Date Type Department Care Team (Latest Contact Info) Description 05/25/2024 10:53 AM MANAGER SPORTS - 05/25/2024 4:00 PM MANAGER SPORTS Hospital Encounter [facility] Interventional Radiology [address] [place] [phone] Jaswinder Cooper MD [address] [facility] [address] [place] [address] 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) [...] file Legal Sex Female 8:25 AM MANAGER SPORTS Gender Identity Not on file Sexual Orientation Not on file documented as of this encounter Last Filed Vital Signs Vital Sign Reading Time Taken Comments Blood Pressure 100/60 05/25/2024 4:00 PM MANAGER SPORTS Pulse 92 05/25/2024 3:00 PM MANAGER SPORTS Temperature 36.9 C (98.5 F) 05/25/2024 11:09 AM MANAGER SPORTS Respiratory Rate 16 05/25/2024 4:00 PM MANAGER SPORTS Oxygen Saturation 98% 05/25/2024 4:00 PM MANAGER SPORTS Inhaled Oxygen Concentration - - Weight 51.1 kg (112 lb 9.6 oz) 05/25/2024 11:09 AM MANAGER SPORTS Height - - Body Mass Index 21.28 05/23/2024 4:48 PM MANAGER SPORTS documented in this encounter Discharge Instructions * Discharge Instructions* Hattie Ballesteros RN - 05/25/2024 3:24 PM MANAGER SPORTS Images from the original note were not included. [facility] Interventional Radiology Discharge Instructions Following Port Placement You had a 2 ports placed. On the right side of your chest is a apheresis port and on the left side of your chest in a smart port. A port is a small medical assistant dermatology that is placed under the skin and isconnected to a vein with a catheter (thin, flexible tube). Ports can be used to administer IV medications (including chemotherapy), fluids or blood products or for blood lab draws. Please follow the below instructions after your procedure: Your Ports has been closed with [place] Allen (Skin Glue) If there is any [...] port placement for further instructions for this. [facility] INTERVENTIONAL RADIOLOGY DEPARTMENT Procedure Physician: Myron Michel MD Date of procedure: May 25, 2024 Telephone Numbers: [phone] Wednesday-Wednesday 7:30 am to 4:00 pm [phone] After 4:00 pm Wednesday-Wednesday, Weekends & Holidays. Ask for the Interventional Radiologist conventional machinist. Someone is conventional machinist 24 hrs/day [facility] toll free number: Wednesday-Wednesday 8:00 am to 4:30 pm [facility] Emergency Dept: [phone] IF YOU ARE EXPERIENCING A MEDICAL EMERGENCY PLEASE CALL 911 GER SPORTS GER SPORTS documented in this encounter Medications at Time [...] to s/o who is driving patient home. GER SPORTS * Hattie Ballesteros RN - 05/25/2024 3:07 PM CST Patient returned s/p bilateral port placement with apheresis port on the right and smart port on the left, both with dermabond, intact no bleeding or swelling. Patient c/o 7/10 pain, RN called Dr. Anglin and got home dose of dilaudid ordered. Patient alert and oriented, RASS of 0. Will discharge once meeting criteria. GER SPORTS * Hattie Ballesteros RN - 05/25/2024 12:32 PM CST Patient prepped for port placement x 2. Patient will have a power port and a apharesis IV port. Consent signed. PIV placed in left AC by vascular, IV antibiotic running. Appropriately NPO. Patient has sickle cell disease, reports pain okay today. S/o Vineet will be picking patient up. GER SPORTS documented in this encounter Procedure Notes * Myron Michel MD - 05/25/2024 2:55 PM CSTAssociated Order(s): IR Procedure Note [facility] Procedure: IR Procedure Note Date/Time: [...] the procedure a time out was called Energy Protocol: the Joint Commission Energy Protocol was followed Preparation: Patient was prepped and draped in usual sterile fashion ANESTHESIA Anesthesia: Local infiltration Local Anesthetic: Lidocaine 1% without epinephrine SEDATION Patient Sedated: Yes Sedation Type: Moderate (conscious) sedation Sedation: Fentanyl and midazolam Vital signs: Vital signs monitored during sedation See dictated procedure note for full details. Findings: Successful bilateral port placement apheresis on the right, 6 uruguayan smart port on the left Specimens: none Procedural Complications: None Condition: Stable Plan: 1 hour bedrest then okay to discharge PROCEDURE Describe Procedure: Successful bilateral port placement apheresis on the right, 6 uruguayan smart porton the left Patient Tolerance: Patient tolerated the procedure well with no immediate complications Length of time physician/provider present for 1:1 monitoring during sedation: 83-97 min GER [facility]TS documented in this encounter Miscellaneous Notes * [...] mcg of fentanyl Sedation time: 97 minutes ([id number]) Report given to: Juhi Aviles RN Bark Grinder: n/a Other Notes: Pt arrived to IR [...] (5 mL). Pt transferred back to . GER SPORTS * Pre-Procedure - Juan Story PA-Jefferson - 05/25/2024 11:37 AM MANAGER SPORTS GENERAL PRE-PROCEDURE: Procedure: Port placement x2 Date/Time: [...] data, medications, and the plan for sedation GER SPORTS documented in this encounter Plan of Treatment Upcoming Encounters Date Type Department Care Team (Late st Contact Info) Description 07/04/2024 9:00 AM CDT Lab [facility] Cancer [address] [phone] Case Samuel MD [address] [place] [address], ROOM [address] [address] 07/06/2024 8:00 AM CDT Appointment [facility] [address] [phone] Case Samuel MD [address] [place] [address], [address] [place], [place] [id number] 07/10/2024 11:30 AM CDT Oncology Visit [facility] Cancer [address] [phone] Case Samuel MD [address] [place] [address], [address] [place], [place] [phone] documented as of this encounter Goals Goal Patient Goal Type Associated Problems Recent Progress Patient-Stated? 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) HCG QUALITATIVE URINE Routine 05/25/2024 12:03 PM MANAGER SPORTS documented in this encounter Results * IR Procedure Note (05/25/2024 2:54 PM MANAGER SPORTS) Narrative Myron Michel MD - 05/25/2024 2:54 PM MANAGER SPORTS Myron Michel MD 05/25/2024 2:55 PM [facility] Procedure: IR Procedure Note Date/Time: [...] the procedure a time out was called Energy Protocol: the Joint Commission Energy Protocol was followed Preparation: Patient was prepped and draped in usual sterile fashion ANESTHESIA Anesthesia: Local infiltration Local Anesthetic: Lidocaine 1% without epinephrine SEDATION Patient Sedated: Yes Sedation Type: Moderate (conscious) sedation Sedation: Fentanyl and midazolam Vital signs: Vital signs monitored during sedation See dictated procedure note for full details. Findings: Successful bilateral port placement apheresis on the right, 6 uruguayan smart port on the left Specimens: none Procedural Complications: None Condition: Stable Plan: 1 hour bedrest then okay to discharge PROCEDURE Describe Procedure: Successful bilateral port placement apheresis on the right, 6 uruguayan smart port on the left Patient Tolerance: Patient tolerated the procedure well with no immediate complications Length of time physician/provider present for 1:1 monitoring during sedation: 83-97 min us Myron Michel MD PROCEDURE/MINOR SURGICAL ORDERA BLES Final Result * IR Chest Port Placement > 5 Yrs of Age (05/25/2024 2:47 PM MANAGER SPORTS) Anatomical Region Laterality Modality Chest Radio Fluoroscop y Impressions 05/25/2024 5:26 PM MANAGER SPORTS IMPRESSION: Insertion of right-sided apheresis chest port, [...] mg Versed Sedation time: 97 minutes ATTENDING [id number] SEDATION TIME: less than 5 minutes. Access [...] JASWINDER COOPER MD Narrative 05/25/2024 5:26 PM MANAGER SPORTS PROCEDURE: Venous port placement Procedural Personnel Attending [...] mg Versed Sedation time: 97 minutes ATTENDING [id number] SEDATION TIME: less than 5 minutes. Access [...] 4 Yrs of Age (05/25/2024 2:47 PM MANAGER SPORTS) Anatomical Region Laterality Modality Chest Radio Fluoroscop y Impressions 05/25/2024 5:23 PM MANAGER SPORTS IMPRESSION: Insertion of left-sided 6 Panamanian chest port, with catheter tip in the [...] mg Versed Sedation time: 97 minutes ATTENDING [id number] SEDATION TIME: 5 minutes. Access Local anesthesia [...] AngioDynamics Plastic CT Smart Port Catheter size (Panamanian): 6 Lumens: Single-lumen Power injectable: Yes Catheter [...] JASWINDER COOPER MD Narrative 05/25/2024 5:23 PM MANAGER SPORTS PROCEDURE: Venous port placement Procedural Personnel Attending [...] Resident physician(s): None Advanced practice provider(s): None IJASWINDER MD, attest that I was present for all critical portions of the procedure and was immediately available to provide guidance and assistance during the remainder of the procedure. Procedure Date (/yyyy): 05/25/2024 Pre-procedure diagnosis: Sickle cell Post-procedure diagnosis: Same Indication: Other- Additional clinical history: None Complications: No immediate complications. IMPRESSION: Insertion of left-sided 6 Panamanian chest port, with catheter tip in the [...] mg Versed Sedation time: 97 minutes ATTENDING [id number] SEDATION TIME: 5 minutes. Access Local anesthesia [...] a permanent image was stored. Port placed: [email or web address] Plastic CT Smart Port Catheter size (Panamanian): 6 Lumens: Single-lumen Power injectable: Yes Catheter [...] JASWINDER COOPER MD us Case Samuel MD [facility] IR ORDERABLES Final R esult * HCG qualitative urine (05/25/2024 12:03 PM MANAGER SPORTS) hCG Urine Qualitative Negative Negative JARET 05/25/2024 12:34 PM MANAGER SPORTS [facility] Comment:This test is for scr eening purposes. Results should be interpreted along with the clinical picture. Confirmation testing is available if warranted by ordering [id number], HCG Quantitative . Urine MID-STREAM URINE SPECIMEN / Unknown Non-blood Collection / Unknown 05/25/2024 12:03 PM MANAGER SPORTS 05/25/2024 12:19 PM MANAGER SPORTS us Jaswinder Cooper MD LAB - URINE ORDERABLES Lsis bola Result LABORATORY [facility] [facility] [address] [facility], Room [address] [place] [address] documented in this encounter Visit [...] ative Pharmacoprophylaxis $New Bag 05/25/2024 12:17 PM MANAGER SPORTS 2 g 200 mL/hr fentaNYL (PF) (SUBLIMAZE) [...] physician., IR Intra-procedure $Given 05/25/2024 2:38 PM MANAGER SPORTS 25 mcg $Given 05/25/2024 2:25 PM MANAGER SPORTS 50 mcg $Given 05/25/2024 2:16 PM MANAGER SPORTS 25 mcg flumazenil (ROMAZICON) injection 0.2 mg [...] $Given by Other Clinician 05/25/2024 1:40 PM MANAGER SPORTS 5,000 Units heparin lock flush 100 unit/mL injection 5 mL 5 mL, Intracatheter, ONCE, On Citlali 05/25/24 at 1330, For 1 dose, Left chest port $Given by Other Clinician 05/25/2024 2:30 PM MANAGER SPORTS 5 mLs HYDROmorphone (DILAUDID) tablet 2 mg 2 mg, Oral, ONCE PRN, severe pain, Starting on Citlali 05/25/24 at 1507, For 1 dose $Given 05/25/2024 3:16 PM MANAGER SPORTS 2 mg lidocaine (LMX4) cream Topical, EVERY [...] $Given by Other Clinician 05/25/2024 1:58 PM MANAGER SPORTS 40 mLs midazolam (VERSED) injection 0.5-2 mg [...] dose., IR Intra-procedure $Given 05/25/2024 2:38 PM MANAGER SPORTS 0.5 mg $Given 05/25/2024 2:25 PM MANAGER SPORTS 1 mg $Given 05/25/2024 2:16 PM MANAGER SPORTS 0.5 mg naloxone (NARCAN) injection 0.2 mg [...] Administered Medications Times are shown in MANAGER SPORTS. Scheduled Medication Order 05/23/2024 05/24/2024 05/25/2024 ceFAZolin [...] dose, Left chest port 1430 ($Given by Ot r Clinician - Provider: Marly Narvaez RN [...] chest port, IR Intra-procedure 1340 ($Given by Othe r Clinician - Provider: [...] administer intradermally., IR Intra-procedure 1358 ($Given by OtPeers App r Clinician - Provider: Marly Narvaez RN [...] Provider: Marly Narvaez RN)1416 ($Given - Provider: Malry Narvaez RN)1425 ($Given - Provider: Marly Narvaez [...] procedure documented in this encounter Care Teams Entry Level Relationship Specialty Start Date End Date No Ref-Primary, Physician PCP - General 03/15/24 06/17/24 Mor Ramsey Medical Student 04/03/24 Case Samuel MD [address] [place] [address], [address] [place] [address] Assigned Pediatric Specialist Provider 05/18/24 documented as of this encounter
--- OUTSIDE RECORDS SUMMARY | 2024-07-03 20:31 | XMS_ITS | Encounter Summary ---
Author Organization [place] Address [address] [place] [address]. 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 Gender Identity Not on file Sexual Orientation Not on file documented as of this encounter Plan of Treatment Upcoming Encounters Date Type Department Care Team (Late st Contact Info) Description 07/04/2024 9:00 AM CDT Lab [facility] Cancer [address] [phone] Case Samuel MD [address] [place] [address], [address] [address] 07/06/2024 8:00 AM CDT Appointment [facility] Advanced Treatment [address] [phone] Case Samuel MD [address] [place], [place] [address], [address] [place], [place] [address] 07/10/2024 11:30 AM CDT Oncology Visit [facility] Cancer [address] [phone] Case Samuel MD [address] [place], [place] [address], RO[address] [phone] documented as of this encounter Goals Goal Patient Goal Type Associated Problems Recent Progress Patient-Stated? Author Pain Management General On track( 025 12:40 PM HISTORICAL ARCHEOLOGIST) Yes Juhi Benson, RN Note: Goal Statement: [...] on filedocumented in this encounter Care Teams Glue Reel Operator Relationship Specialty Start Date End Date No Ref-Primary, Physician PCP - General 03/15/24 06/17/24 Mor Ramsey Medical Student 04/03/24 Case Samuel MD [address] [place] [address], [address] [place] [address] Assigned Pediatric Specialist Provider 05/18/24 documented as of this encounter
--- OUTSIDE RECORDS SUMMARY | 2024-07-03 20:31 | XMS_ITS | Encounter Summary ---
Author Organization [place] Address [address] [place] [address]. 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 [address] [phone] Case Samuel MD [address] [place] [address], [address] [address] 07/10/2024 11:30 AM CDT Oncology Visit [facility] Cancer [address] [phone] Case Samuel MD [address] [place] [address], [address] [id number] documented as of this encounter Goals Goal Patient Goal Type Associated Problems Recent Progress Patient-Stated? Author Pain Management General On track( 025 12:40 PM ENTRY LEVEL PROJECT ENGINEER) Yes Juhi Benson, RN Note: Goal [...] filedocumented in this encounter Care Teams Crm Architect Relationship Specialty Start Date End Date No Ref-Primary, Physician PCP - General 03/15/24 06/17/24 Mor Ramsey Medical Student 04/03/24 Case Samuel MD [address] [place] [address], [address] [place] [address] Assigned Pediatric Specialist Provider 05/18/24 documented as of this encounter
--- OUTSIDE RECORDS SUMMARY | 2024-07-03 20:31 | XMS_ITS | Encounter Summary ---
Author Organization [place] Address [address] [place] [address]. [place] [address] Care Team Providers Care Datawarehouse Developer Name Role Phone No Ref-Primary, Physician Primary Care Provider Mor Ramsey Unavailable Unavailable Case Samuel MD Unavailable [phone] Reason for Visit * Reason Comments Chest Pain Sickle Cell Pain Crisis Encounter Details Date Type Department Care Team (Late st Contact Info) Description 05/22/2024 3:27 PM STICKER HAND - 05/22/2024 6:55 PM STICKER HAND Emergency [facility] Emergency Room [facility]ly [facility] [place] [address] Bernabe Farley MD [facility] [address] [place] [address] Sickle cell pain crisis (H) Discharge Disposition: [...] on file Legal Sex Female 8:25 AM STICKER HAND Gender Identity Not on file Sexual Orientation Not on file documented as of this encounter Last Filed Vital Signs Vital Sign Reading Time Taken Comments Blood Pressure 111/59 05/22/2024 6:53 PM STICKER HAND Pulse 106 05/22/2024 6:52 PM STICKER HAND Temperature 36.7 C (98.1 F) 05/22/2024 3:11 PM STICKER HAND Respiratory Rate 20 05/22/2024 3:11 PM STICKER HAND Oxygen Saturation 95% 05/22/2024 6:52 PM STICKER HAND Inhaled Oxygen Concentration - - Weight 51.7 kg (114 lb) 05/22/2024 3:11 PM STICKER HAND Height 154.9 cm (5' 1) 05/22/2024 3:11 PM STICKER HAND Body Mass Index 21.54 05/22/2024 3:11 PM STICKER HAND documented in this encounter Discharge Instructions * [...] RN - 05/22/2024 6:29 PM CST Bed: [facility] Expected date: Expected time: Means of arrival: Comments: Crash KER HAND * Bernabe Farley MD - 05/22/2024 3:27 [...] April. Today will be the 16th visit. [id number] Patient is a 29-year-old woman with history [...] and Inpatient Record: Patient was seen at [facility] on 05/20/23 Care impacted by [...] Per chart review, patient was seen at [facility] ED on 05/20/24 for sickle cell [...] She has seen the oncologist at the [facility] and has future follow-up appointments for her [...] my direction. Bernabe Farley M.D. Emergency Medicine [facility] EMERGENCY ROOM [address] [facility] [phone] Dept: [phone] Bernabe Farley MD 05/22/241 KER HAND * Sanjay Purdy RN - 05/22/2024 3:10 [...] WDL Cognitive/Neuro/Behavioral WDL Cognitive/Neuro/Behavioral WDL WDL KER HAND documented in this encounter Plan of Treatment Upcoming Encounters Date Type Department Care Team (Late st Contact Info) Description 07/04/2024 9:00 AM CDT Lab [facility] [address] [place] [address] Case Samuel MD [address] [place] [address], [address] [place], [place] [address] 07/06/2024 8:00 AM CDT Appointment [facility] [address] [place] [phone] Case Samuel MD [address] [facility] [address], [address] [place], [place] [address] 07/10/2024 11:30 AM CDT Oncology Visit [facility] [address] [place] [address] Case Samuel MD [address] [facility] [address], [address] [place], [place] [address] documented as of this encounter Goals Goal Patient Goal Type Associated Problems Recent Progress Patient-Stated? Author Pain Management General On track( 025 12:40 PM STICKER HAND) Yes Juhi Benson RN Note: Goal Statement: [...] CHEST 2 VIEWS STAT 05/22/2024 5:19 PM STICKER HAND RBC AND PLATELET MORPHOLOGY STAT 05/22/2024 3:51 PM STICKER HAND CBC WITH PLATELETS AND DIFFERENTIAL STAT 05/22/2024 3:51 PM STICKER HAND CBC WITH PLATELETS & DIFFERENTIAL STAT 05/22/2024 3:51 PM STICKER HAND BASIC METABOLIC PANEL STAT 05/22/2024 3:51 PM STICKER HAND ECG 12-LEAD WITH MUSE [facility] STAT 05/22/2024 3:14 PM STICKER HAND documented in this encounter Results * Chest XR, PA & LAT (05/22/2024 5:19 PM STICKER HAND) Anatomical Region Laterality Modality Chest Digital Radiogra phy 05/22/2024 5:19 PM STICKER HAND Impressions 05/22/2024 5:42 PM STICKER HAND IMPRESSION: Unchanged ill-defined hazy opacities in the peripheral right lung, which may correspond with nodular opacities seen on CT chest dated 05/04/2024. No new focal airspace disease. No pleural effusion or pneumothorax. The cardiomediastinal silhouette is unremarkable. Narrative 05/22/2024 5:42 PM STICKER HAND EXAM: XR CHEST 2 VIEWS LOCATION: [facility] DATE: 05/22/2024 INDICATION: L chest pain, concern for acute chest syndome COMPARISON: 05/20/2024, CT chest 05/04/2024 Procedure Note Robert Marks MD - 05/22/2024 EXAM: XR CHEST 2 VIEWS LOCATION: [facility] DATE: 05/22/2024 INDICATION: L chest pain, [...] RBC and Platelet Morphology (05/22/2024 3:51 PM STICKER HAND) Pathologist [facility] RBC Morphology Confirmed RBC Indices 05/22/2024 4:30 PM STICKER HAND [facility] Platelet Assessment Automated Count Confirmed. Giant platelets are present.(A) Automated Count Confirmed. Platelet morphology is normal. JARET 05/22/2024 4:30 PM STICKER HAND [facility] Giant Platelets Slight(A) None Seen JARET 05/22/2024 4:30 PM STICKER HAND [facility] Elliptocytes Slight(A) None Seen JARET 05/22/2024 4:30 PM [facility] Ziegler-Gridley Bodies Present(A) None Seen JARET 05/22/2024 4:30 PM STICKER HAND [facility] Polychromasia Slight(A) None Seen JARET 05/22/2024 4:30 PM [facility] RBC Fragments Slight(A) None Seen JARET 05/22/2024 4:30 PM [facility] Sickle Cells Moderate(A) None Seen JARET 05/22/2024 4:30 PM [facility] Target Cells Slight(A) None Seen [facility] 05/22/2024 4:30 PM [facility] Blood VENOUS LINE / Unknown Venipuncture / Unknown 05/22/2024 3:51 PM STICKER HAND 05/22/2024 3:54 PM STICKER HAND Bernabe Farley MD LAB - BLOOD ORDERABLES Final Result [facility] [address] [place] [address], [facility] * (ABNORMAL) CBC with platelets and differential (05/22/2024 3:51 PM STICKER HAND) WBC Count 14.5(H) 4.0 - 11.0 10e3/uL 05/22/2024 4:30 PM [facility] RBC Count 2.59(L) 3.80 - 5.20 10e6/uL 05/22/2024 4:30 PM [facility] Hemoglobin 8.2(L) 11.7 - 15.7 g/dL 05/22/2024 4:30 PM [facility] Hematocrit 23.4(L) 35.0 - 47.0 % 05/22/2024 4:30 PM [facility] MCV 90 78 - 100 fL 05/22/2024 4:30 PM [facility] MCH 31.7 26.5 - 33.0 pg 05/22/2024 4:30 PM [facility] MCHC 35.0 31.5 - 36.5 g/dL 05/22/2024 4:30 PM [facility] RDW 22.9(H) 10.0 - 15.0 % 05/22/2024 4:30 PM [facility] Platelet Count 552(H) 150 - 450 10e3/uL 05/22/2024 4:30 PM [facility] % Neutrophils 53 % 05/22/2024 4:30 PM [facility] % Lymphocytes 30 % 05/22/2024 4:30 PM [facility] % Monocytes 14 % 05/22/2024 4:30 PM [facility] % Eosinophils 1 % 05/22/2024 4:30 PM [facility] % Basophils 1 % 05/22/2024 4:30 PM [facility] % Immature Granulocytes 1 % 05/22/2024 4:30 PM [facility] NRBCs per 100 WBC 2(H) <1 /100 025 4:30 PM [facility] Absolute Neutrophils 7.7 1.6 - 8.3 10e3/uL 05/22/2024 4:30 PM [facility] Absolute Lymphocytes 4.3 0.8 - 5.3 10e3/uL 05/22/2024 4:30 PM [facility] Absolute Monocytes 2.0(H) 0.0 - 1.3 10e3/uL 05/22/2024 4:30 PM [facility] Absolute Eosinophils 0.1 0.0 - 0.7 10e3/uL 05/22/2024 4:30 PM [facility] Absolute Basophils 0.2 0.0 - 0.2 10e3/uL 05/22/2024 4:30 PM [facility] Absolute Immature Granulocytes 0.2 <=0.4 10e3/uL 05/22/2024 4:30 PM [facility] Absolute NRBCs 0.3 10e3/uL 05/22/2024 4:30 PM [facility] Blood VENOUS LINE / Unknown Venipuncture / Unknown 05/22/2024 3:51 PM STICKER HAND 05/22/2024 3:54 PM STICKER HAND Bernabe Farley MD LAB - BLOOD ORDERABLES Final Result [facility] [address] [facility] [place] [address], [facility] * (ABNORMAL) Basic metabolic panel (05/22/2024 3:51 PM STICKER HAND) Sodium 138 135 - 145 mmol/L 05/22/2024 4:12 PM [facility] Potassium 4.8 3.4 - 5.3 mmol/L 05/22/2024 4:12 PM [facility] Chloride 107 98 - 107 mmol/L 05/22/2024 4:12 PM [facility] Carbon Dioxide (CO2) 20(L) 22 - 29 mmol/L 05/22/2024 4:12 PM [facility] Anion Gap 11 7 - 15 mmol/L 05/22/2024 4:12 PM [facility] Urea Nitrogen 9.9 6.0 - 20.0 mg/dL 05/22/2024 4:12 PM [facility] Creatinine 0.91 0.51 - 0.95 mg/dL 05/22/2024 4:12 PM [facility] GFR Estimate 87 >60 mL/min/1.7 3m2 05/22/2024 4:12 PM [facility] Comment:eGFR calculated usin g 2020 CKD-EPI equation. Calcium 9.6 8.8 - 10.4 mg/dL 05/22/2024 4:12 PM [facility] Comment:Reference intervals for this test were updated on 11/09/2023 to reflect our healthy population more accurately. There may be differences in the flagging of prior results with similar values performed with this method. Those prior results can be interpreted in the context of the updated reference intervals. Glucose 100(H) 70 - 99 mg/dL 05/22/2024 4:12 PM [facility] Blood VENOUS LINE / Unknown Venipuncture / Unknown 05/22/2024 3:51 PM STICKER HAND 05/22/2024 3:54 PM STICKER HAND us Bernabe Farley MD LAB - BLOOD ORDERABLES Final Result Performing Organization Address [facility]/ZIP Co de Phone Number [facility] [address] [place] [address], [place] * ECG 12-LEAD WITH MUSE ([facility]HE) (05/22/2024 3:14 PM STICKER HAND) Systolic Blood Pressure mmHg RADIOLOGY RESULTS Diastolic Blood Pressure mmHg RADIOLOGY RESULTS Ventricular Rate 103 BPM RAD IOLOGY RESULTS Atrial Rate 103 BPM RADIOLOG Y RESULTS WI Interval 124 ms RADIOLOG Y RESULTS QRS Duration 80 ms RADIOLO GY RESULTS QT 316 ms RADIOLOGY RESULTS QTc 413 ms RADIOLOGY RESULTS P [place] 82 degrees RADIOLOGY RESULTS R AXIS 90 degrees RADIOLOGY RESULTS T [place] 70 degrees RADIOLOGY RESULTS Interpretation ECG Sinus tachycardia Rightward axis Borderline ECG When compared with ECG of 20-May-2024 07:36, Nonspecific T wave abnormality no longer evident in Anterior leads Confirmed by SEE ED PROVIDER NOTE FOR, ECG INTERPRETATION (4000), assignment editor Leticia Warner ([id number]) on 05/22/2024 4:13:58 PM RADIOLOGY RESULTS 05/22/2024 3:14 PM STICKER HAND 05/22/2024 4:13 PM STICKER HAND us Bernabe Farley MD ECG ORDERABLES Edited [...] For 1 dose $Given 05/22/2024 4:00 PM STICKER HAND 25 mg HYDROmorphone (DILAUDID) injection 2 mg 2 mg, Intravenous, EVERY 1 HOUR PRN, severe pain, Starting on Wed05/22/24 at 1537, For 3 doses $Given 05/22/2024 6:39 PM STICKER HAND 2 mg $Given 05/22/2024 5:33 PM STICKER HAND 2 mg $Given 05/22/2024 4:00 PM STICKER HAND 2 mg lactated ringers BOLUS 500 mL Intravenous, 500 mL, ONCE, On Wed05/22/24 at 1600, For 1 dose $New Bag 05/22/2024 4:13 PM STICKER HAND 500 mLs ondansetron (ZOFRAN) injection 4 mg 4 mg, Intravenous, ONCE, Administer over 2-5 Minutes, On Wed05/22/24 at 1600, For 1 dose $Given 05/22/2024 4:00 PM STICKER HAND 4 mg documented in this encounter Active and Recently Administered Medications Times are shown in STICKER HAND. Scheduled Medication Order 05/20/2024 05/21/2024 05/22/2024 diphenhydrAMINE [...] SOFIA) documented in this encounter Care Teams Datawarehouse Developer Relationship Specialty Start Date End Date No Ref-Primary, Physician PCP - General 03/15/24 06/17/24 Mor Ramsey Medical Student 04/03/24 Case Samuel MD [address] [place] [address] 484, [address] [place] [address] Assigned Pediatric Specialist Provider 05/18/24 documented as of this encounter
--- OUTSIDE RECORDS SUMMARY | 2024-07-03 20:31 | XMS_ITS | Encounter Summary ---
Author Organization [place] Address [address] [place] [address]. [place] [address] Care Team Providers Care Teacher Instrumental Name Role Phone RoxyElvirac Unavailable Unavailable Case Samuel MD Unavailable [phone] Juhi Benson RN Unavailable Unavailable Veronica Joseph MD Primary Care Provider [phone] Reason for Visit * Reason Onset Date Comments Refill Request 06/29/2024 Encounter Details Date Type Department Care Team (Late st Contact Info) Description 06/29/[address] [place] [address] Case Samuel MD [address] [place] [address] 484, [address] [place], [place] [address] Refill Request Social History Tobacco Use Types [...] in an overnight long-term, or couch-surfing.) Yes 06/20/2024 Are you worried [...] on file Legal Sex Female 8:25 AM UX INTERACTION DESIGNER Gender Identity Not on file Sexual [...] and by whom: 06/15/[address] Samuel GANTRY CRANE OPERATOR Reviewed: no access Send to provider: Dr. Samuel and ESTEVAN Reynaga. INTERACTION DESIGNER documented in this encounter Plan of Treatment Upcoming Encounters Date Type Department Care Team (Late st Contact Info) Description 07/04/2024 9:00 AM CDT Lab [facility] [address] [place] [phone] Case Samuel MD [address] [facility] [address], [address] [place] [address] 07/06/2024 8:00 AM CDT Appointment [facility] [place] [address] [place] [phone] Case Samuel MD [address] [facility] [address], [address] [place], [place] [address] 07/10/2024 11:30 AM CDT Oncology Visit [facility] [address] [phone] Case Samuel MD [address] [place] [address], [address] [place], [place] [address] documented as of this encounter Goals Goal Patient Goal Type Associated Problems Recent Progress Patient-Stated? Author Pain Management General On track( 025 12:40 PM UX INTERACTION DESIGNER) Yes Juhi Benson, RN Note: Goal Statement: [...] crisis documented in this encounter Care Teams Teacher Instrumental Relationship Specialty Start Date End Date Veronica Joseph MD [address] [place] [address] PCP - General Family Medicine 06/18/24 Mor Ramsey Medical Student 04/03/24 Case Samuel MD [address] [place] [address] 484, [address] [place], [place] [address] Assigned Pediatric Specialist Provider 05/18/24 Juhi Benson, RN Specialty Paramedic Instructor Hematology & Oncology 05/29/24 documented as of this encounter
--- OUTSIDE RECORDS SUMMARY | 2024-07-03 20:31 | XMS_ITS | Encounter Summary ---
Author Organization [place] Address [address] [place] [address] Care Team Providers Care Jira Developer Name Role Phone No Ref-Primary, Physician Primary Care Provider Mor Ramsey Unavailable Unavailable Case Samuel MD Unavailable [phone] Reason for Visit * Reason Onset Date Comments Refill Request 05/22/2024 Encounter Details Date Type Department Care Team ([facility] st Contact Info) Description 05/22/2024 MyC Refill [facility] [address] [place] [address] Case Samuel MD [address] [place] [address] 484, [address] [place] [address] Refill Request Social History Tobacco [...] Legal Sex Female 8:25 AM DIRECTOR OF STRATEGY & MOBILE Gender Identity Not on file Sexual Orientation [...] and by whom: Dr. Samuel on 05/01/2024 PLANT OPERATIONS WORKER Reviewed: Yes Send to provider: Dr. Samuel and ESTEVAN Reynaga . CTOR OF STRATEGY & MOBILE documented in this encounter Plan of Treatment Upcoming Encounters Date Type Department Care Team (Late st Contact Info) Description 07/04/2024 9:00 AM CDT Lab [facility] [address] [phone] Case Samuel MD [address] [place] [address] 484, [address] [place], [place] [address] 07/06/2024 8:00 AM CDT Appointment [facility] [address] [phone] Case Samuel MD [address] [place] [address] 484, [address] [place], [place] [address] 07/10/2024 11:30 AM CDT Oncology Visit [facility] [address] [phone] Case Samuel MD [address] [place], [place] [address], [address] [place], [place] [address] documented as of this encounter Goals Goal Patient Goal Type Associated Problems Recent Progress Patient-Stated? Author Pain Management General On track( 025 12:40 PM DIRECTOR OF STRATEGY & MOBILE) Yes Juhi Benson, SOFIA Note: Goal Statement: [...] crisis documented in this encounter Care Teams Jira Developer Relationship Specialty Start Date End Date No Ref-Primary, Physician PCP - General 03/15/24 06/17/24 Mor Ramsey Medical Student 04/03/24 Case Samuel MD [address] [place] [address], [address] [place] [address] Assigned Pediatric Specialist Provider 05/18/24 documented as of this encounter
--- OUTSIDE RECORDS SUMMARY | 2024-07-03 20:31 | XMS_ITS | Encounter Summary ---
Author Organization [place] Address [address] [place] [address]. [place] [address] Care Team Providers Care Bomb Squad Officer Name Role Phone No Ref-Primary, Physician Primary Care Provider Mor Ramsey Unavailable Unavailable Case Samuel MD Unavailable [phone] Encounter Details Date Type Department Care Team [...] on file Legal Sex Female 8:25 AM MEMORIAL DESIGNER Gender Identity Not on file Sexual Orientation Not on file documented as of this encounter Plan of Treatment Upcoming Encounters Date Type Department Care Team (Late st Contact Info) Description 07/04/2024 9:00 AM CDT Lab [facility] [address] [phone] Case Samuel MD [address] [place] [address], [address] [phone] 07/06/2024 8:00 AM CDT Appointment [facility] [address] [phone] Case Samuel MD [address] [place], [place] [address], [address] [place], [place] [address] 07/10/2024 11:30 AM CDT Oncology Visit [facility] [address] [phone] Case Samuel MD [address] [place], [place] [address], [address] [id number] documented as of this encounter Goals Goal Patient Goal Type Associated Problems Recent Progress Patient-Stated? Author Pain Management General On track( 025 12:40 PM MEMORIAL DESIGNER) Yes Juhi Benson, RN Note: Goal [...] on filedocumented in this encounter Care Teams Bomb Squad Officer Relationship Specialty Start Date End Date No Ref-Primary, Physician PCP - General 03/15/24 06/17/24 Mor Ramsey Medical Student 04/03/24 Case Samuel MD [address] [place] [address] 484, [address] [place] [address] Assigned Pediatric Specialist Provider 05/18/24 documented as of this encounter
--- OUTSIDE RECORDS SUMMARY | 2024-07-03 20:31 | XMS_ITS | Encounter Summary ---
Author Organization [facility] Address [address] [place] [address] Care Team Providers Care Circuit Tester Name Role Phone No Ref-Primary, Physician Primary Care Provider Mor Ramsey Unavailable Unavailable Case Samuel MD Unavailable [phone] Reason for Visit * Reason Comments Abdominal Pain ULQ Encounter Details Date Type Department Care Team (Late st Contact Info) Description 05/23/2024 9:03 PM TOOL PROFILING MACHINE SET UP OPERATOR - 05/23/2024 11:37 PM [facility] Emergency [facility] Emergency Room Formerly [facility] [place] [address] Marilia Summers MD [address] [place] [id number] Sickle cell pain crisis (H); Leukocytosis, unspecified [...] on file Legal Sex Female 8:25 AM TOOL PROFILING MACHINE SET UP OPERATOR Gender Identity Not on file Sexual Orientation Not on file documented as of this encounter Last Filed Vital Signs Vital Sign Reading Time Taken Comments Blood Pressure 123/71 05/23/2024 9:53 PM TOOL PROFILING MACHINE SET UP OPERATOR Pulse 95 05/23/2024 9:53 PM TOOL PROFILING MACHINE SET UP OPERATOR Temperature 37.7 C (99.9 F) 05/23/2024 4:48 PM TOOL PROFILING MACHINE SET UP OPERATOR Respiratory Rate 18 05/23/2024 4:48 PM TOOL PROFILING MACHINE SET UP OPERATOR Oxygen Saturation 98% 05/23/2024 9:53 PM TOOL PROFILING MACHINE SET UP OPERATOR Inhaled Oxygen Concentration - - Weight 51.7 kg (114 lb) 05/23/2024 4:48 PM TOOL PROFILING MACHINE SET UP OPERATOR Height 154.9 cm (5' 1) 05/23/2024 4:48 PM TOOL PROFILING MACHINE SET UP OPERATOR Body Mass Index 21.54 05/23/2024 4:48 PM TOOL PROFILING MACHINE SET UP OPERATOR documented in this encounter Discharge Instructions * Discharge Instructions* Marilia Summers MD - 05/23/2024 10:34 PM TOOL PROFILING MACHINE SET UP OPERATOR Keep your appointment for your port in 2 days. Continue to work with oncology/hematology on pain control. The Lidoderm patch helps with the area of pain underneath your left breast on the chest wall, you can get [id number] muscle pain patches that have the same numbing medicine in them and put it on for 12 hours at a time to help with your discomfort. Obviously return to the emergency department as needed if you are having difficulty with breathing. PROFILING MACHINE SET UP OPERATOR * Attachments The following attachments cannot be sent through Care Everywhere. * Sickle Cell Crisis (German) documented in this encounter Medications at Time [...] /chest pain. Seen for similar last night PROFILING MACHINE SET UP OPERATOR * Marilia Summers MD - 05/23/2024 [...] she notes the plan discussed with the oncologist/sheet metal smith is to do 3 times a week [...] of chest pain. Misti moved here from [facility] a fewmonths ago and since that time has been seen in the emergency department greater than 40 times. Shewas seen here yesterday, May 21, 2019, , , , , 18, 13th, 12th, 11th, 10th, eighth, seventh twice, on the sixth she was seen by oncology at the [facility] for the first time, also in the [...] CT CHEST PULMONARY EMBOLISM W CONTRAST LOCATION: [facility] DATE: 05/23/2024 INDICATION: patient with sickle cell. acute chest pain similar to pe in the past. COMPARISON: Chest x-ray 05/22/2024, CTA chest 05/04/2024 and 03/15/2024. Report of CT chest from [facility] from 03/13/2023 is also available. TECHNIQUE: [...] Rate 77 BPM Atrial Rate 77 BPM TN Interval 160 ms QRS Duration 82 ms QT 362 ms QTc 409 ms P Oldhams 61 degrees R AXIS 92 degrees T Oldhams 49 degrees Interpretation ECG Sinus rhythm Rightward axis Borderline ECG When compared with ECG of 22-May-2024 15:14, Nonspecific T wave abnormality no longer evident in Inferior leads Confirmed by SEE ED PROVIDER NOTE FOR, ECG INTERPRETATION (4000), editor greeting card SELMA GARRISON ([id number]) on 05/23/2024 7:30:33 PM ECG: Performed at: 1854 Impression: nsr rate of 77, wandering baseline somewhat limits exam. R axis. Pr 160ms, qrs 82ms, qtc 409ms, prt axes 61 92 49. Compared to 05/22/[address] segments in inferior limb leads no longer present. I have independently reviewed and interpreted the EKS(s) documented above PROCEDURES: Procedures: [facility] Documentation Medical Decision Making [...] with other provider:Did you involve another provider (legal nurse consultant, , pharmacy, etc.)?: No Discharge. I prescribed additional prescription strength medication(s) as charted. See documentation for any additional details. MIPS: Not Applicable Marilia Summers MD Emergency Medicine [facility] EMERGENCY ROOM Marilia Summers MD 05/23/24 2445 PROFILING MACHINE SET UP OPERATOR * Carmen Elkins, SOFIA - 05/23/2024 4:51 PM CST Pt arrives with c/o abdominal pain (ULQ). Pt seen here yesterday for the same pain and sickle cell pain. Reports feeling better when she left yesterday but now pain is back. Temp: 99.9 PROFILING MACHINE SET UP OPERATOR documented in this encounter Plan of Treatment Upcoming Encounters Date Type Department Care Team (Late st Contact Info) Description 07/04/2024 9:00 AM CDT Lab [facility] [address] [place] [address] Case Samuel MD [address] [place] [address], [address] [place] [address] 07/06/2024 8:00 AM CDT Appointment [facility] [place] [address] [place] [phone] Case Samuel MD [address] [facility] [address], [address] [place], [place] [address] 07/10/2024 11:30 AM CDT Oncology Visit [facility] [address] [place] [phone] Case Samuel MD [address] [facility] [address], [address] [place] [address] documented as of this encounter Goals Goal Patient Goal Type Associated Problems Recent Progress Patient-Stated? Author Pain Management General On track( 025 12:40 PM TOOL PROFILING MACHINE SET UP OPERATOR) Yes Juhi Benson, RN Note: Goal [...] EMBOLISM W CONTRAST STAT 05/23/2024 9:33 PM TOOL PROFILING MACHINE SET UP OPERATOR TROPONIN T, HIGH SENSITIVITY STAT 05/23/2024 9:02 PM TOOL PROFILING MACHINE SET UP OPERATOR RETICULOCYTE COUNT STAT 05/23/2024 9: 02 PM TOOL PROFILING MACHINE SET UP OPERATOR N TERMINAL PRO BNP OUTPATIENT STAT 05/23/2024 9:02 PM TOOL PROFILING MACHINE SET UP OPERATOR CBC WITH PLATELETS STAT 05/23/2024 9: 02 PM TOOL PROFILING MACHINE SET UP OPERATOR ECG 12-LEAD WITH MUSE SJN,SJO,WWH STAT 05/23/2024 6:54 PM TOOL PROFILING MACHINE SET UP OPERATOR documented in this encounter Results * CT Chest Pulmonary Embolism w Contrast (05/23/2024 9:33 PM TOOL PROFILING MACHINE SET UP OPERATOR) Anatomical Region Laterality Modality Chest, SUBRAD CT BODY, UMP CT CHEST Computed Tomography 05/23/2024 9:33 PM TOOL PROFILING MACHINE SET UP OPERATOR Impressions 05/23/2024 10:12 PM TOOL PROFILING MACHINE SET UP OPERATOR IMPRESSION: 1. Bilateral pulmonary nodules stable [...] as noted above. Narrative 05/23/2024 10:12 PM TOOL PROFILING MACHINE SET UP OPERATOR EXAM: CT CHEST PULMONARY EMBOLISM W CONTRAST LOCATION: [facility] DATE: 05/23/2024 INDICATION: patient with sickle cell. acute chest pain similar to pe in the past. COMPARISON: Chest x-ray 05/22/2024, CTA chest 05/04/2024 and 03/15/2024. Report of CT chest from [facility] from 03/13/2023 is also available. TECHNIQUE: [...] CT CHEST PULMONARY EMBOLISM W CONTRAST LOCATION: [facility] DATE: 05/23/2024 INDICATION: patient with sickle cell. acute chest pain similar to pe inthe past. COMPARISON: Chest x-ray 05/22/2024, CTA chest 05/04/2024 and 03/15/2024.Report of CT chest from [facility] from 03/13/2023 is alsoavailable. TECHNIQUE: [...] terminal pro BNP outpatient (05/23/2024 9:02 PM TOOL PROFILING MACHINE SET UP OPERATOR) Pathologist [facility] N Terminal Pro BNP Outpatient 74 [phone] - 450 pg/mL 05/23/2024 9:39 PM TOOL PROFILING MACHINE SET UP OPERATOR [facility] Comment: Reference range shown and [...] Unknown Venipuncture / Unknown 05/23/2024 9:02 PM TOOL PROFILING MACHINE SET UP OPERATOR 05/23/2024 9:10 PM TOOL PROFILING MACHINE SET UP OPERATOR us Marilia Summers MD LAB - BLOOD ORDERABLES Final Result [facility] [address] [place] [address], [facility] * Troponin T, High Sensitivity (05/23/2024 9:02 PM TOOL PROFILING MACHINE SET UP OPERATOR) Pathologist [facility] Troponin T, High Sensitivity <6 <=14 ng/L 05/23/2024 9:39 PM TOOL PROFILING MACHINE SET UP OPERATOR [facility] Comment: Either a High Sensitivity [...] Unknown Venipuncture / Unknown 05/23/2024 9:02 PM TOOL PROFILING MACHINE SET UP OPERATOR 05/23/2024 9:10 PM TOOL PROFILING MACHINE SET UP OPERATOR Marilia Summers MD LAB - BLOOD ORDERABLES Final Result Performing Organization Address [facility] Phone Number [facility] [address] [place] [address] * (ABNORMAL) Reticulocyte count (05/23/2024 9:02 PM TOOL PROFILING MACHINE SET UP OPERATOR) % Reticulocyte 28.1(H) 0.5 - 2.0 % 05/23/2024 9:35 PM TOOL PROFILING MACHINE SET UP OPERATOR [facility] Absolute Reticulocyte 0.698(H) 0.025 - 0.095 10e6/uL 05/23/2024 9:35 PM TOOL PROFILING MACHINE SET UP OPERATOR [facility] Blood BLOOD SPECIMEN / Unknown Venipuncture / Unknown 05/23/2024 9:02 PM TOOL PROFILING MACHINE SET UP OPERATOR 05/23/2024 9:10 PM TOOL PROFILING MACHINE SET UP OPERATOR Marilia Summers MD LAB - BLOOD ORDERABLES Final Result Performing Organization Address [facility] de Phone Number [facility] [address] [place] [address] * (ABNORMAL) CBC (+ platelets, no diff) (05/23/2024 9:02 PM TOOL PROFILING MACHINE SET UP OPERATOR) WBC Count 17.2(H) 4.0 - 11.0 10e3/uL 05/23/2024 9:18 PM TOOL PROFILING MACHINE SET UP OPERATOR [facility] RBC Count 2.45(L) 3.80 - 5.20 10e6/uL 05/23/2024 9:18 PM TOOL PROFILING MACHINE SET UP OPERATOR [facility] Hemoglobin 7.9(L) 11.7 - 15.7 g/dL 05/23/2024 9:18 PM [facility] Hematocrit 22.4(L) 35.0 - 47.0 % 05/23/2024 9:18 PM [facility] MCV 91 78 - 100 fL 05/23/2024 9:18 PM [facility] MCH 32.2 26.5 - 33.0 pg 05/23/2024 9:18 PM [facility] MCHC 35.3 31.5 - 36.5 g/dL 05/23/2024 9:18 PM [facility] RDW 24.4(H) 10.0 - 15.0 % 05/23/2024 9:18 PM [facility] Platelet Count 519(H) 150 - 450 10e3/uL 05/23/2024 9:18 PM [facility] Blood BLOOD SPECIMEN / Unknown Venipuncture / Unknown 05/23/2024 9:02 PM TOOL PROFILING MACHINE SET UP OPERATOR 05/23/2024 9:10 PM TOOL PROFILING MACHINE SET UP OPERATOR us Marilia Summers MD LAB - BLOOD ORDERABLES Final Result Performing Organization Address [facility]/State/[facility] Co de Phone Number [facility] [address] [facility] [place], [place] [address] * ECG 12-LEAD WITH MUSE (LHE) (05/23/2024 6:54 PM TOOL PROFILING MACHINE SET UP OPERATOR) Systolic Blood Pressure mmHg RADIOLOGY RESULTS Diastolic Blood Pressure mmHg RADIOLOGY RESULTS Ventricular Rate 77 BPM RAD IOLOGY RESULTS Atrial Rate 77 BPM RADIOLOG Y RESULTS TN Interval 160 ms RADIOLOG Y RESULTS QRS Duration 82 ms RADIOLO GY RESULTS QT 362 ms RADIOLOGY RESULTS QTc 409 ms RADIOLOGY RESULTS P Oldhams 61 degrees RADIOLOGY RESULTS R AXIS 92 degrees RADIOLOGY RESULTS T Oldhams 49 degrees RADIOLOGY RESULTS Interpretation ECG Sinus rhythm Rightward axis Borderline ECG When compared with ECG of 22-May-2024 15:14, Nonspecific T wave abnormality no longer evident in Inferior leads Confirmed by SEE ED PROVIDER NOTE FOR, ECG INTERPRETATION (4000), editor greeting card SELMA GARRISON ([id number]) on 05/23/2024 7:30:33 PM RADIOLOGY RESULTS 05/23/2024 6:54 PM TOOL PROFILING MACHINE SET UP OPERATOR 05/23/2024 7:30 PM TOOL PROFILING MACHINE SET UP OPERATOR us Marilia Summers MD ECG ORDERABLES [...] For 1 dose $Given 05/23/2024 10:03 PM TOOL PROFILING MACHINE SET UP OPERATOR 50 mg HYDROmorphone (DILAUDID) injection 2 mg 2 mg, Intravenous, EVERY 1 HOUR PRN, moderate pain, Starting on Wed05/23/24 at 2115, For 2 doses $Given 05/23/2024 10:21 PM TOOL PROFILING MACHINE SET UP OPERATOR 2 mg $Given 05/23/2024 9:18 PM TOOL PROFILING MACHINE SET UP OPERATOR 2 mg HYDROmorphone (DILAUDID) injection 2 mg 2 mg, Intravenous, ONCE, On Wed05/23/24 at 2330, For 1 dose $Given 05/23/2024 11:20 PM TOOL PROFILING MACHINE SET UP OPERATOR 2 mg iopamidol (ISOVUE-370) solution 75 mL 75 mL, Intravenous, ONCE, On Wed05/23/24 at 2130, For 1 dose $Given 05/23/2024 9:33 PM TOOL PROFILING MACHINE SET UP OPERATOR 75 mLs lactated ringers BOLUS 1,000 mL Intravenous, 1,000 mL, ONCE, On Wed05/23/24 at 2200, For 1 dose $New Bag 05/23/2024 10:05 PM TOOL PROFILING MACHINE SET UP OPERATOR 1,000 mLs Lidocaine (LIDOCARE) 4 % [...] post injection. $Patch/Med Applied 05/23/2024 10:53 PM TOOL PROFILING MACHINE SET UP OPERATOR 1 patch Left Chest ondansetron (ZOFRAN) injection 8 mg 8 mg, Intravenous, ONCE PRN, nausea, vomiting, Administer over 2-5 Minutes, Starting on Wed05/23/24 at 2159, For 1 dose $Given 05/23/2024 10:07 PM TOOL PROFILING MACHINE SET UP OPERATOR 8 mg documented in this encounter Active and Recently Administered Medications Times are shown in TOOL PROFILING MACHINE SET UP OPERATOR. Scheduled Medication Order 05/21/2024 05/22/2024 05/23/2024 [...] 2132 ($Given - Provi nas: [facility] Finn [facility]) lactated ringers BOLUS 1,000 mL (COMPLETED) Intravenous, [...] on Wed05/23/24 at 2115, For 2 doses 2118 ($Given - Provi nas: Sanjay Purdy RN)2221 ($Given - Provider: Sanjay Purdy RN) ondansetron (ZOFRAN) injection 8 mg (COMPLETED) 8 mg, Intravenous, ONCE PRN, nausea, vomiting, Administer over 2-5 Minutes, Starting on Wed05/23/24 at 2159, For 1 dose 2207 ($Given - Provi nas: Sanjay Purdy RN) documented in this encounter Care Teams Circuit Tester Relationship Specialty Start Date End Date No Ref-Primary, Physician PCP - General 03/15/24 06/17/24 Mor Ramsey Medical Student 04/03/24 Case Samuel MD [address] [place] [address], [address] [place] [address] Assigned Pediatric Specialist Provider 05/18/24 documented as of this encounter
--- OUTSIDE RECORDS SUMMARY | 2024-07-03 20:32 | XMS_ITS | Encounter Summary ---
Author Organization [facility] [place] Address [address] [place] [address]. [place] [address] Care Team Providers Care Key Ringer Name Role Phone No Ref-Primary, Physician Primary Care Provider Mor Ramsey Unavailable Unavailable Case Samuel MD Unavailable [phone] Juhi Benson RN Unavailable Unavailable Encounter Details [...] on file Legal Sex Female 8:25 AM CURATOR OF PHOTOGRAPHY AND PRINTS Gender Identity Not on file Sexual Orientation Not on file documented as of this encounter Plan of Treatment Upcoming Encounters Date Type Department Care Team (Late st Contact Info) Description 07/04/2024 9:00 AM CDT Lab [facility] Cancer [address] [phone] Case Samuel MD [address] [place], [place] [address], [address] [id number] 07/06/2024 8:00 AM CDT Appointment [facility] Advanced Treatment [address] [phone] Case Samuel MD [address] [place], [place] [address], RO[address] [address] 07/10/2024 11:30 AM CDT Oncology Visit [facility] [address] [address] Case Samuel MD [address] [place], [place] [address], [address] [phone] documented as of this encounter Goals Goal Patient Goal Type Associated Problems Recent Progress Patient-Stated? Author Pain Management General On track( 025 12:40 PM CURATOR OF PHOTOGRAPHY AND PRINTS) Yes Juhi Benson, RN Note: Goal Statement: [...] on filedocumented in this encounter Care Teams Key Ringer Relationship Specialty Start Date End Date No Ref-Primary, Physician PCP - General 03/15/24 06/17/24 Mor Ramsey Medical Student 04/03/24 Case Samuel MD [address] [place] [address], [address] [place] [address] Assigned Pediatric Specialist Provider 05/18/24 Juhi Benson, RN Specialty Pricing Strategist Hematology & Oncology 05/29/24 documented as of this encounter
--- OUTSIDE RECORDS SUMMARY | 2024-07-03 20:32 | XMS_ITS | Encounter Summary ---
Author Organization [place] Address [address] [place] [address]. [place] [address] Care Team Providers Care Utility Worker Film Processing Name Role Phone No Ref-Primary, Physician Primary Care Provider Mor Ramsey Unavailable Unavailable Case Samuel MD Unavailable [phone] Juhi Benson RN Unavailable Unavailable Reason for Visit * Reason Comments Sickle Cell Pain Crisis Encounter Details Date Type Department Care Team (Late st Contact Info) Description 06/01/2024 11:41 PM PLANT CHANGER - 06/02/2024 2:35 AM [facility] Emergency [facility] Emergency Room [address] [place] [address] Noel Pinzon MD [address] [place] [address] Sickle cell pain crisis (H) Discharge Disposition: [...] on file Legal Sex Female 8:25 AM PLANT CHANGER Gender Identity Not on file Sexual Orientation Not on file documented as of this encounter Last Filed Vital Signs Vital Sign Reading Time Taken Comments Blood Pressure 117/69 06/02/2024 2:15 AM PLANT CHANGER Pulse 73 06/02/2024 2:15 AM PLANT CHANGER Temperature 36.7 C (98.1 F) 06/01/2024 10:44 PM PLANT CHANGER Respiratory Rate 15 06/02/2024 2:00 AM PLANT CHANGER Oxygen Saturation 95% 06/02/2024 2:15 AM PLANT CHANGER Inhaled Oxygen Concentration - - Weight 54.4 kg (120 lb) 06/01/2024 10:44 PM PLANT CHANGER Height - - Body Mass Index 22.67 05/31/2024 9:39 PM PLANT CHANGER documented in this encounter Discharge Instructions * Discharge Instructions* Noel Pinzon MD - 06/02/2024 1:57 AM PLANT CHANGER Continue outpatient follow up and cares with your specialist. turning machine set up operator your prescription for dilaudid tomorrow and take as directed. T CHANGER T CHANGER documented in this encounter Medications at Time [...] questions were answered. Vitally stable upon discharge. T CHANGER T CHANGER * Noel Pinzon MD - 06/01/2024 11:07 PM CST Emergency Department Encounter Evaluation Date & Time: No admission date for patient encounter. CHIEF COMPLAINT: Sickle Cell Pain Crisis Triage Note:PT is coming in tonight for a sickle cell crisis. Pt has been waiting for her pharmacy to fill her RX. They stated that pharmacy might have the RX tomorrow. No OTC medication ASSOCIATE ENGINEER. ED COURSE & MEDICAL DECISION MAKING: [...] history is provided by the patient. No stoneworking sander was used. Gianna Hernández is a 29 [...] the provider's statements to me. I, Noel Pinzon DO attestthat Darron Garcia is acting in a scribe capacity, has observed my performance of the services and has documented them in accordance with my direction. Noel Pinzon DO Emergency Medicine [facility] EMERGENCY ROOM 06/01/2024 11:07 PM Noel Pinzon MD 06/02/24 0236 T CHANGER * Aminata Farley, RN - 06/01/2024 10:45 PM CST PT is coming in tonight for a sickle cell crisis. Pt has been waiting for her pharmacy to fill her RX. They stated that pharmacy might have the RX tomorrow. No OTC medication ASSOCIATE ENGINEER. Triage Assessment (Adult) Row Name 06/01/24 2244 Triage Assessment Airway WDL WDL Respiratory WDL Respiratory WDL WDL Skin Circulation/Temperature WDL Skin Circulation/Temperature WDL WDL Cardiac WDL Cardiac WDL WDL Peripheral/Neurovascular WDL Peripheral Neurovascular WDL WDL Cognitive/Neuro/Behavioral WDL Cognitive/Neuro/Behavioral WDL WDL T CHANGER documented in this encounter Plan of Treatment Upcoming Encounters Date Type Department Care Team (Late st Contact Info) Description 07/04/2024 9:00 AM CDT Lab [facility] [address] [place] [address] Case Samuel MD [address] [place] [address], [address] [place], [place] [address] 07/06/2024 8:[address] [facility] [place] [address] [place] [phone] Case Samuel MD [address] [place] [address], [address] [place], [place] [address] 07/10/2024 11:30 AM CDT Oncology Visit [facility] [address] [place] [address] Case Samuel MD [address] [facility] [place] [address], [address] [place] [address] documented as of this encounter Goals Goal Patient Goal Type Associated Problems Recent Progress Patient-Stated? Author Pain Management General On track( 025 12:40 PM PLANT CHANGER) Yes Juhi Benson, SOFIA Note: Goal Statement: [...] For 1 dose $Given 06/02/2024 1:17 AM PLANT CHANGER 50 mg heparin lock flush 10 unit/mL [...] each port lumen $Given 06/02/2024 2:29 AM PLANT CHANGER 5 mLs HYDROmorphone (DILAUDID) injection 2 mg 2 mg, Intravenous, ONCE, On Citlali 06/01/24 at 2330, For 1 dose $Given 06/02/2024 12:07 AM PLANT CHANGER 2 mg HYDROmorphone (DILAUDID) injection 2 mg 2 mg, Intravenous, EVERY 1 HOUR PRN, severe pain, Starting on Citlali 06/01/24 at 2308, For 2 doses $Given 06/02/2024 2:17 AM PLANT CHANGER 2 mg $Given 06/02/2024 1:16 AM PLANT CHANGER 2 mg lactated ringers BOLUS 1,000 mL Intravenous, 1,000 mL, ONCE, On Citlali 06/01/24 at 2330, For 1 dose $New Bag 06/02/2024 12:06 AM PLANT CHANGER 1,000 mLs ondansetron (ZOFRAN) injection 8 mg 8 mg, Intravenous, ONCE, Administer over 2-5 Minutes, On Citlali 06/01/24 at 2330, For 1 dose $Given 06/02/2024 12:06 AM PLANT CHANGER 8 mg sodium chloride (PF) 0.9% PF [...] each port lumen. $Given 06/02/2024 12:12 AM PLANT CHANGER 20 mLs documented in this encounter Active and Recently Administered Medications Times are shown in PLANT CHANGER. Scheduled Medication Order 05/31/2024 06/01/2024 06/02/2024 diphenhydrAMINE [...] lumen documented in this encounter Care Teams Utility Worker Film Processing Relationship Specialty Start Date End Date No Ref-Primary, Physician PCP - General 03/15/24 06/17/24 Mor Ramsey Medical Student 04/03/24 Case Samuel MD [address] [place] [address], [address] [place] [address] Assigned Pediatric Specialist Provider 05/18/24 Juhi Benson RN Specialty C Architect Hematology & Oncology 05/29/24 documented as of this encounter
--- OUTSIDE RECORDS SUMMARY | 2024-07-03 20:32 | XMS_ITS | Encounter Summary ---
Author Organization [place] Address [address] [place] [address]. [place] [address] Care Team Providers Care Precision Lathe Operator Name Role Phone No Ref-Primary, Physician Primary Care Provider Mor Ramsey Unavailable Unavailable Case Samuel MD Unavailable [phone] Encounter Details Date Type Department Care Team [...] on file Legal Sex Female 8:25 AM RISK MGR Gender Identity Not on file Sexual Orientation Not on file documented as of this encounter Plan of Treatment Upcoming Encounters Date Type Department Care Team (Late st Contact Info) Description 07/04/2024 9:00 AM CDT Lab [facility] [address] [phone] Case Samuel MD [address] [place] [address], ROOM [address] [id number] 07/06/2024 8:[address] [facility] Advanced Treatment [address] [phone] Case Samuel MD [address] [place], [place] [address], [address] [place], [place] [address] 07/10/2024 11:30 AM CDT Oncology Visit [facility] [address] [phone] Case Samuel MD [address] [place], [place] [address], ROOM [address] [id number] documented as of this encounter Goals Goal Patient Goal Type Associated Problems Recent Progress Patient-Stated? Author Pain Management General On track( 025 12:40 PM RISK MGR) Yes Juhi Benson, RN Note: Goal Statement: [...] on filedocumented in this encounter Care Teams Precision Lathe Operator Relationship Specialty Start Date End Date No Ref-Primary, Physician PCP - General 03/15/24 06/17/24 Mor Ramsey Medical Student 04/03/24 Case Samuel MD [address] [place] [address], [address] [place] [address] Assigned Pediatric Specialist Provider 05/18/24 documented as of this encounter
--- OUTSIDE RECORDS SUMMARY | 2024-07-03 20:32 | XMS_ITS | Encounter Summary ---
Author Organization [place] Address [address] [place] [address]. [address] Care Team Providers Care Washer And Crusher Tender Name Role Phone No Ref-Primary, Physician Primary Care Provider Mor Ramsey Unavailable Unavailable Case Samuel MD Unavailable [phone] Juhi Benson RN Unavailable Unavailable Reason for Visit * Reason Onset Date Comments Refill Request 06/05/2024 Encounter Details Date Type Department Care Team (Late st Contact Info) Description 06/05/2024 MyC Refill [facility] [address] [place] [address] Case Samuel MD [address] [place] [address], [address] [place] [address] Refill Request Social History Tobacco [...] file Legal Sex Female 8:25 AM MANAGER SURGERY Gender Identity Not on file Sexual Orientation [...] fill date and by whom: Dr. Samuel CUT IN STATION OPERATOR Reviewed: Yes Send to provider: Routed to dr. Samuel and ESTEVAN Reynaga GER SURGERY documented in this encounter Plan of Treatment Upcoming Encounters Date Type Department Care Team (Late st Contact Info) Description 07/04/2024 9:00 AM CDT Lab [facility] [address] [phone] Case Samuel MD [address] [place] [address], [address] [place], [place] [address] 07/06/2024 8:00 AM CDT Appointment [facility] Advanced Treatment [address] [phone] Case Samuel MD [address] [place] [address], [address] [place] [address] 07/10/2024 11:30 AM CDT Oncology Visit [facility] [address] [phone] Case Samuel MD [address] [place], [place] [address], [address] [place], [place] [address] documented as of this encounter Goals Goal Patient Goal Type Associated Problems Recent Progress Patient-Stated? Author Pain Management General On track( 025 12:40 PM MANAGER SURGERY) Yes Juhi Benson, SOFIA Note: Goal Statement: [...] crisis documented in this encounter Care Teams Washer And Crusher Tender Relationship Specialty Start Date End Date No Ref-Primary, Physician PCP - General 03/15/24 06/17/24 Mor Ramsey Medical Student 04/03/24 Case Samuel MD [address] [place] [address], [address] [place] [address] Assigned Pediatric Specialist Provider 05/18/24 Juhi Benson, RN Specialty Piping Design Specialist Hematology & Oncology 05/29/24 documented as of this encounter
--- OUTSIDE RECORDS SUMMARY | 2024-07-03 20:32 | XMS_ITS | Encounter Summary ---
Author Organization [place] Address [address] [place] [address]. [place] [address] Care Team Providers Care Respiratory Scientist Name Role Phone No Ref-Primary, Physician Primary Care Provider oMr Ramsey Unavailable Unavailable Case Samuel MD Unavailable [phone] Juhi Benson RN Unavailable Unavailable Reason for Visit * Reason Comments Sickle Cell Pain Crisis Encounter Details Date Type Department Care Team (Late st Contact Info) Description 05/28/2024 11:56 PM INVENTORY AUDITOR - 05/29/2024 3:54 AM INVENTORY AUDITOR Emergency [facility] Emergency Room [facility] [place] [address] Lenin Smith MD [address] [place] [id number] Sickle cell disease with crisis (H) Discharge [...] on file Legal Sex Female 8:25 AM INVENTORY AUDITOR Gender Identity Not on file Sexual Orientation Not on file documented as of this encounter Last Filed Vital Signs Vital Sign Reading Time Taken Comments Blood Pressure 123/66 05/29/2024 3:15 AM INVENTORY AUDITOR Pulse 87 05/29/2024 3:15 AM INVENTORY AUDITOR Temperature 36.6 C (97.9 F) 05/29/2024 12:01 AM INVENTORY AUDITOR Respiratory Rate 18 05/29/2024 12:01 AM INVENTORY AUDITOR Oxygen Saturation 93% 05/29/2024 3:15 AM INVENTORY AUDITOR Inhaled Oxygen Concentration - - Weight 51.7 kg (114 lb) 05/29/2024 12:01 AM INVENTORY AUDITOR Height 154.9 cm (5' 1) 05/29/2024 12:01 AM INVENTORY AUDITOR Body Mass Index 21.54 05/29/2024 12:01 AM INVENTORY AUDITOR documented in this encounter Discharge Instructions * Attachments The following attachments cannot be sent through Care Everywhere. * Sickle Cell Crisis (Telugu) documented in this encounter Medications at Time [...] time. Patient comfortable and agrees with plan. NTORY AUDITOR * Lenin Smith MD - 05/29/2024 12:17 [...] go home. Has an appointment with her culture room worker today. Will follow-up then. No indication for transfusion at this [...] with other provider:Did you involve another provider (residential solar consultant, , pharmacy, etc.)?: No Discharge. No [...] information was obtained from: Patient Use of Recycle Coordinator: N/A Gianna Hernández is a 29 year [...] daughters second birthdayand they walked around the [facility], patient believes she might have over exerted [...] home in stable condition. 05/25 Admission to [facility] for bilateral port placements with apheresis port on right and smart port on left. 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 Recently moved to [place] from [place], [place]. She is 1 of 9 [...] Social Connections: Socially Integrated (03/28/2024) Received from [facility] Social Connections Do you often feel lonely [...] my direction. Lenin Smith M.D. Emergency Medicine [facility] EMERGENCY ROOM [facility] [address] Dept: [phone] Lenin Smith MD 05/29/24 0412 NTORY AUDITOR * Moy Stewart RN - 05/29/2024 12:02 [...] WDL WDL Cognitive/Neuro/Behavioral WDL Cognitive/Neuro/Behavioral WDL WDL NTORY AUDITOR documented in this encounter Plan of Treatment Upcoming Encounters Date Type Department Care Team (Late st Contact Info) Description 07/04/2024 9:00 AM CDT Lab [facility] Cancer [address] [phone] Case Samuel MD [address] [place] [address], RO[address] [id number] 07/06/2024 8:00 AM CDT Appointment [facility] Advanced Treatment [address] [phone] Case Samuel MD [address] [place] [address], [address] [place], [place] [address] 07/10/2024 11:30 AM CDT Oncology Visit [facility] Cancer [address] [phone] Case Samuel MD [address] [place], [place] [address], ROOM [address] [address] documented as of this encounter Goals Goal Patient Goal Type Associated Problems Recent Progress Patient-Stated? Author Pain Management General On track( 025 12:40 PM INVENTORY AUDITOR) Yes Juhi Benson, SOFIA Note: Goal Statement: [...] MANUAL DIFFERENTIAL STAT 05/29/2024 1 2:53 AM INVENTORY AUDITOR CBC WITH PLATELETS AND DIFFERENTIAL STAT 05/29/2024 12:53 AM INVENTORY AUDITOR CBC WITH PLATELETS & DIFFERENTIAL STAT 05/29/2024 12:53 AM INVENTORY AUDITOR RETICULOCYTE COUNT STAT 05/29/2024 12 :53 AM INVENTORY AUDITOR documented in this encounter Results * (ABNORMAL) Manual Differential (05/29/2024 12:53 AM INVENTORY AUDITOR) % Neutrophils 54 % JARET 05/29/2024 1:58 AM [facility] % Lymphocytes 34 % JARET 05/29/2024 1:58 AM [facility] % Monocytes 10 % JARET 05/29/2024 1:58 AM [facility] % Eosinophils 1 % JARET 05/29/2024 1:58 AM [facility] % Basophils 1 % JARET 05/29/2024 1:58 AM [facility] Absolute Neutrophils 8.4(H) 1.6 - 8.3 10e3/uL JARET 05/29/2024 1:58 AM [facility] Absolute Lymphocytes 5.3 0.8 - 5.3 10e3/uL JARET 05/29/2024 1:58 AM [facility] Absolute Monocytes 1.6(H) 0.0 - 1.3 10e3/uL JARET 05/29/2024 1:58 AM [facility] Absolute Eosinophils 0.2 0.0 - 0.7 10e3/uL JARET 05/29/2024 1:58 AM [facility] Absolute Basophils 0.2 0.0 - 0.2 10e3/uL JARET 05/29/2024 1:58 AM [facility] NRBCs per 100 WBC 3 % JARET 05/29/2024 1:58 AM [facility] Absolute NRBCs 0.5 10e3/uL JARET 05/29/2024 1:58 AM [facility] RBC Morphology Confirmed RBC Indices JARET 05/29/2024 1:58 AM [facility] Platelet Assessment Automated Count Confirmed. Platelet morphology is normal. Automated Count Confirmed. Platelet morphology is normal. [facility] 05/29/2024 1:58 AM [facility] Polychromasia Moderate(A) None Seen [facility] 05/29/2024 1:58 AM [facility] Sickle Cells Moderate(A) None Seen [facility] 05/29/2024 1:58 AM [facility] Blood VENOUS LINE / Unknown Venipuncture / Unknown 05/29/2024 12:53 AM [facility] 05/29/2024 12:58 AM [facility] us Lenin Smith MD LAB - BLOOD ORDERABLES Final Result [facility] [address] [facility] [address] [place], [place] [id number] [place] [address] * (ABNORMAL) CBC with platelets and differential (05/29/2024 12:53 AM [facility]) WBC Count 15.6(H) 4.0 - 11.0 10e3/uL 05/29/2024 1:58 AM [facility] RBC Count 2.09(L) 3.80 - 5.20 10e6/uL 05/29/2024 1:58 AM [facility] Hemoglobin 6.7(LL) 11.7 - 15.7 g/dL 05/29/2024 1:58 AM [facility] Hematocrit 19.2(L) 35.0 - 47.0 % 05/29/2024 1:58 AM [facility] MCV 92 78 - 100 fL 05/29/2024 1:58 AM [facility] MCH 32.1 26.5 - 33.0 pg 05/29/2024 1:58 AM [facility] MCHC 34.9 31.5 - 36.5 g/dL 05/29/2024 1:58 AM [facility] RDW 23.0(H) 10.0 - 15.0 % 05/29/2024 1:58 AM INVENTORY AUDITOR [facility] Platelet Count 405 150 - 450 10e3/uL 05/29/2024 1:58 AM INVENTORY AUDITOR [facility] Blood VENOUS LINE / Unknown Venipuncture / Unknown 05/29/2024 12:53 AM INVENTORY AUDITOR 05/29/2024 12:58 AM INVENTORY AUDITOR Lenin Smith MD LAB - BLOOD ORDERABLES Final Result Performing Organization Address [facility] Co de Phone Number [facility] [address] [place] [address] PROSPER Munoz [phone], [facility] * (ABNORMAL) Reticulocyte count (05/29/2024 12:53 AM INVENTORY AUDITOR) [facility] % Reticulocyte 28.6(H) 0.5 - 2.0 % 05/29/2024 1:27 AM INVENTORY AUDITOR [facility] Absolute Reticulocyte 0.616(H) 0.025 - 0.095 10e6/uL 05/29/2024 1:27 AM [facility] Blood VENOUS LINE / Unknown Venipuncture / Unknown 05/29/2024 12:53 AM INVENTORY AUDITOR 05/29/2024 12:58 AM INVENTORY AUDITOR Lenin Smith MD LAB - BLOOD ORDERABLES Final Result Performing Organization Address [facility] de Phone Number [facility] [address] [place] [address] PROSPER Munoz [id number], [facility] documented in this encounter Visit [...] For 1 dose $Given 05/29/2024 1:26 AM INVENTORY AUDITOR 25 mg heparin lock flush 10 unit/mL [...] each port lumen $Given 05/29/2024 3:38 AM INVENTORY AUDITOR 5 mLs HYDROmorphone (DILAUDID) injection 2 mg 2 mg, Intravenous, EVERY 1 HOUR PRN, severe pain, moderate pain, Starting on Wed05/29/24 at 0010, For 3 doses $Given 05/29/2024 3:37 AM INVENTORY AUDITOR 2 mg $Given 05/29/2024 2:37 AM INVENTORY AUDITOR 2 mg $Given 05/29/2024 1:19 AM INVENTORY AUDITOR 2 mg lactated ringers BOLUS 1,000 mL Intravenous, 1,000 mL, ONCE, at 1,000 mL/hr, Administer over 1 Hours, On Wed05/29/24 at 0030, For 1 dose $New Bag 05/29/2024 1:01 AM INVENTORY AUDITOR 1,000 mLs 1000 mL/hr sodium chloride (PF) 0.9% PF flush 10-20 mL 10-20 mL, Intracatheter, EVERY 1 MIN PRN, line flush, post meds or blood draw, to flush each lumen of the CVC Implanted port, Starting on Wed05/29/24 at 0008, 10 mL per port lumen post IV meds; 20 mL per port lumen post post blood draw. $Given 05/29/2024 3:37 AM INVENTORY AUDITOR 10 mLs sodium chloride (PF) 0.9% PF [...] Recently Administered Medications Times are shown in INVENTORY AUDITOR. Scheduled Medication Order 05/27/2024 05/28/2024 05/29/2024 diphenhydrAMINE [...] lumen documented in this encounter Care Teams Respiratory Scientist Relationship Specialty Start Date End Date No Ref-Primary, Physician PCP - General 03/15/24 06/17/24 Mor Ramsey Medical Student 04/03/24 Case Samuel MD [address] [place] [address], [address] [place] [address] Assigned Pediatric Specialist Provider 05/18/24 Juhi Benson, SOFIA Specialty Cytometry Technologist Hematology & Oncology 05/29/24 documented as of this encounter
--- OUTSIDE RECORDS SUMMARY | 2024-07-03 20:32 | XMS_ITS | Encounter Summary ---
Author Organization [facility] Address [address] [place] [address] Care Team Providers Care Flight Attendant Ramp Name Role Phone No Ref-Primary, Physician Primary Care Provider Mor Ramsey Unavailable Unavailable Case Samuel MD Unavailable [phone] Juhi Benson RN Unavailable Unavailable Reason for Visit * Reason Comments Sickle Cell Pain Crisis Encounter Details Date Type Department Care Team (Late st Contact Info) Description 05/31/2024 9:56 PM CONFIGURATION MANAGEMENT CONSULTANT - 06/01/2024 12:46 AM [facility] Emergency [facility] [place] [address] Carley Riggins MD [address] [address] Sickle cell pain crisis (H) Discharge Disposition: [...] on file Legal Sex Female 8:25 AM CONFIGURATION MANAGEMENT CONSULTANT Gender Identity Not on file Sexual Orientation Not on file documented as of this encounter Last Filed Vital Signs Vital Sign Reading Time Taken Comments Blood Pressure 118/63 06/01/2024 12:41 AM CONFIGURATION MANAGEMENT CONSULTANT Pulse 71 06/01/2024 12:41 AM CONFIGURATION MANAGEMENT CONSULTANT Temperature 36.7 C (98 F) 05/31/2024 9:39 PM CONFIGURATION MANAGEMENT CONSULTANT Respiratory Rate 20 05/31/2024 9:39 PM CONFIGURATION MANAGEMENT CONSULTANT Oxygen Saturation 98% 06/01/2024 12:41 AM CONFIGURATION MANAGEMENT CONSULTANT Inhaled Oxygen Concentration - - Weight 54.4 kg (120 lb) 05/31/2024 9:39 PM CONFIGURATION MANAGEMENT CONSULTANT Height 154.9 cm (5' 1) 05/31/2024 9:39 PM CONFIGURATION MANAGEMENT CONSULTANT Body Mass Index 22.67 05/31/2024 9:39 PM CONFIGURATION MANAGEMENT CONSULTANT documented in this encounter Discharge [...] chest. She recently moved to [place] from [place], and notes the difference in temperature may be exacerbating her symptoms. Patient denies any other complaints at this time. 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 Visit to [facility] ER on 29-May-2024 for sickle cell 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, [facility] Functional asplenia Gallstones Hb-SS disease without [...] Currently Drug use: Never Social History Narrative [id number]-[id number] mom. Recently moved to [place] from [place], [place]. She is 1 of 9 [...] Social Connections: Socially Integrated (03/28/2024) [facility] [employer] [facility] Social Connections Do you often feel lonely [...] Automated Count Confirmed. Platelet morphology is normal. Point Ple[place] Cells Slight (*) Elliptocytes Slight (*) Ziegler-Jacona Bodies Present (*) Polychromasia Slight (*) Sickle [...] my direction. Carley Riggins M.D. Emergency Medicine [facility] EMERGENCY ROOM [address] [facility] [id number] Dept: [phone] Carley Riggins MD 06/01/24 0048 IGURATION MANAGEMENT CONSULTANT * Aminata Farley, RN - 05/31/2024 9:40 PM CST Pt is coming in with a sickle cell crisis. Pt was unable to pick up driver her medication d/t pharmacy needing to order it. Tylenol last at 1700 Ibuprofen last at 2100 Triage Assessment (Adult) Row Name 05/31/24 2140 Triage Assessment Airway WDL WDL Respiratory WDL Respiratory WDL WDL Skin Circulation/Temperature WDL Skin Circulation/Temperature WDL WDL Cardiac WDL Cardiac WDL WDL Peripheral/Neurovascular WDL Peripheral Neurovascular WDL WDL Cognitive/Neuro/Behavioral WDL Cognitive/Neuro/Behavioral WDL WDL IGURATION MANAGEMENT CONSULTANT documented in this encounter Plan of Treatment Upcoming Encounters Date Type Department Care Team (Late st Contact Info) Description 07/04/2024 9:00 AM CDT Lab [facility] [address] [address] Case Samuel MD [address] [place] [address], [address] [place], [place] [id number] 07/06/2024 8:[address] [facility] [address] [address] Case Samuel MD [address] [place], [place] [address], [address] [place], [place] [id number] 07/10/2024 11:30 AM CDT Oncology Visit [facility] [address] [address] Case Samuel MD [address] [facility] 484, [address] [place] [address] documented as of this encounter Goals Goal Patient Goal Type Associated Problems Recent Progress Patient-Stated? Author Pain Management General On track( 025 12:40 PM CONFIGURATION MANAGEMENT CONSULTANT) Yes Juhi Benson, RN Note: [...] AND PLATELET MORPHOLOGY STAT 05/31/2024 10:21 PM CONFIGURATION MANAGEMENT CONSULTANT CBC WITH PLATELETS AND DIFFERENTIAL STAT 05/31/2024 10:21 PM CONFIGURATION MANAGEMENT CONSULTANT CBC WITH PLATELETS & DIFFERENTIAL STAT 05/31/2024 10:21 PM CONFIGURATION MANAGEMENT CONSULTANT RETICULOCYTE COUNT STAT 05/31/2024 10 :21 PM CONFIGURATION MANAGEMENT CONSULTANT BASIC METABOLIC PANEL STAT 05/31/2024 10:21 PM CONFIGURATION MANAGEMENT CONSULTANT documented in this encounter Results * (ABNORMAL) RBC and Platelet Morphology (05/31/2024 10:21 PM CONFIGURATION MANAGEMENT CONSULTANT) Pathologist [facility] RBC Morphology Confirmed RBC Indices 05/31/2024 10:59 PM CONFIGURATION MANAGEMENT CONSULTANT [facility] Platelet Assessment Automated Count Confirmed. Platelet morphology is normal. Automated Count Confirmed. Platelet morphology is normal. JARET 05/31/2024 10:59 PM CONFIGURATION MANAGEMENT CONSULTANT [facility] Point Pleasant Cells Slight(A) None Seen JARET 05/31/2024 10:59 PM CONFIGURATION MANAGEMENT CONSULTANT [facility] Elliptocytes Slight(A) None Seen JARET 05/31/2024 10:59 PM [facility] Ziegler-Jacona Bodies Present(A) None Seen JARET 05/31/2024 10:59 PM [facility] Polychromasia Slight(A) None Seen JARET 05/31/2024 10:59 PM [facility] Sickle Cells Moderate(A) None Seen JARET 05/31/2024 10:59 PM [facility] Target Cells Slight(A) None Seen JARET 05/31/2024 10:59 PM [facility] Blood BLOOD SPECIMEN / Unknown Venipuncture / Unknown 05/31/2024 10:21 PM CONFIGURATION MANAGEMENT CONSULTANT 05/31/2024 10:24 PM CONFIGURATION MANAGEMENT CONSULTANT us Carley Riggins MD LAB - BLOOD ORDERABLES Liss plaza Result [facility] [address] * (ABNORMAL) CBC with platelets and differential (05/31/2024 10:21 PM CONFIGURATION MANAGEMENT CONSULTANT) WBC Count 15.4(H) 4.0 - 11.0 10e3/uL 05/31/2024 10:55 PM [facility] RBC Count 2.73(L) 3.80 - 5.20 10e6/uL 05/31/2024 10:55 PM [facility] Hemoglobin 8.9(L) 11.7 - 15.7 g/dL 05/31/2024 10:55 PM [facility] Hematocrit 24.8(L) 35.0 - 47.0 % 05/31/2024 10:55 PM [facility] MCV 91 78 - 100 fL 05/31/2024 10:55 PM [facility] MCH 32.6 26.5 - 33.0 pg 05/31/2024 10:55 PM [facility] MCHC 35.9 31.5 - 36.5 g/dL 05/31/2024 10:55 PM [facility] RDW 21.2(H) 10.0 - 15.0 % 05/31/2024 10:55 PM [facility] Platelet Count 399 150 - 450 10e3/uL 05/31/2024 10:55 PM [facility] % Neutrophils 56 % 05/31/2024 10:55 PM [facility] % Lymphocytes 27 % 05/31/2024 10:55 PM [facility] % Monocytes 14 % 05/31/2024 10:55 PM [facility] % Eosinophils 1 % 05/31/2024 10:55 PM [facility] % Basophils 1 % 05/31/2024 10:55 PM [facility] % Immature Granulocytes 1 % 05/31/2024 10:55 PM [facility] NRBCs per 100 WBC 2(H) <1 /100 025 10:55 PM [facility] Absolute Neutrophils 8.7(H) 1.6 - 8.3 10e3/uL 05/31/2024 10:55 PM [facility] Absolute Lymphocytes 4.2 0.8 - 5.3 10e3/uL 05/31/2024 10:55 PM [facility] Absolute Monocytes 2.2(H) 0.0 - 1.3 10e3/uL 05/31/2024 10:55 PM [facility] Absolute Eosinophils 0.2 0.0 - 0.7 10e3/uL 05/31/2024 10:55 PM [facility] Absolute Basophils 0.1 0.0 - 0.2 10e3/uL 05/31/2024 10:55 PM [facility] Absolute Immature Granulocytes 0.1 <=0.4 10e3/uL 05/31/2024 10:55 PM [facility] Absolute NRBCs 0.3 10e3/uL 05/31/2024 10:55 PM [facility] Blood BLOOD SPECIMEN / Unknown Venipuncture / Unknown 05/31/2024 10:21 PM [facility] 05/31/2024 10:24 PM [facility] us Carley Riggins MD LAB - BLOOD ORDERABLES Liss [address] Result [facility] [address] [place] [address], [facility] * (ABNORMAL) Basic metabolic panel (05/31/2024 10:21 PM [facility]) Pathologist [facility] Sodium 133(L) 135 - 145 mmol/L 05/31/2024 10:46 PM [facility] Potassium 4.1 3.4 - 5.3 mmol/L 05/31/2024 10:46 PM [facility] Chloride 102 98 - 107 mmol/L 05/31/2024 10:46 PM [facility] Carbon Dioxide (CO2) 20(L) 22 - 29 mmol/L 05/31/2024 10:46 PM [facility] Anion Gap 11 7 - 15 mmol/L 05/31/2024 10:46 PM [facility] Urea Nitrogen 9.9 6.0 - 20.0 mg/dL 05/31/2024 10:46 PM [facility] Creatinine 0.70 0.51 - 0.95 mg/dL 05/31/2024 10:46 PM [facility] GFR Estimate >90 >60 mL/min/1.7 3m2 05/31/2024 10:46 PM [facility] Comment:eGFR calculated nd 2020 CKD-EPI equation. Calcium 9.0 8.8 - 10.4 mg/dL 05/31/2024 10:46 PM [facility] Glucose 97 70 - 99 mg/dL 05/31/2024 10:46 PM [facility] Blood BLOOD SPECIMEN / Unknown Venipuncture / Unknown 05/31/2024 10:21 PM CONFIGURATION MANAGEMENT CONSULTANT 05/31/2024 10:24 PM [facility] us Carley Riggins MD LAB - BLOOD ORDERABLES Liss [address] Result [facility] [address] [place] [address], [place] * (ABNORMAL) Reticulocyte count (05/31/2024 10:21 PM [facility]) % Reticulocyte 22.7(H) 0.5 - 2.0 % 05/31/2024 10:45 PM [facility] Absolute Reticulocyte 0.631(H) 0.025 - 0.095 10e6/uL 05/31/2024 10:45 PM CONFIGURATION MANAGEMENT CONSULTANT [facility] Blood BLOOD SPECIMEN / Unknown Venipuncture / Unknown 05/31/2024 10:21 PM CONFIGURATION MANAGEMENT CONSULTANT 05/31/2024 10:24 PM CONFIGURATION MANAGEMENT CONSULTANT us Carley Riggins MD LAB - BLOOD ORDERABLES Liss l Result [facility] [address] [place] [address], [facility] documented in this encounter Visit Diagnoses Diagnosis 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 documented in this encounter Administered Medications Inactive Administered Medications - up to 3 most recent administrations Medication Order MAR Action Action Date Dose Rate Site diphenhydrAMINE (BENADRYL) capsule 25 mg 25 mg, Oral, ONCE, On Wed05/31/24 at 2300, For 1 dose $Given 05/31/2024 10:50 PM CONFIGURATION MANAGEMENT CONSULTANT 25 mg heparin lock flush 100 unit/mL injection 100 Units 100 Units, Intracatheter, ONCE, On Citlali 06/01/24 at 0030, For 1 dose $Given 06/01/2024 12:39 AM CONFIGURATION MANAGEMENT CONSULTANT 100 Units HYDROmorphone (DILAUDID) injection 2 mg 2 mg, Intravenous, EVERY 1 HOUR PRN, severe pain, Starting on Wed05/31/24 at 2143, For 3 doses $Given 06/01/2024 12:36 AM CONFIGURATION MANAGEMENT CONSULTANT 2 mg $Given 05/31/2024 11:42 PM CONFIGURATION MANAGEMENT CONSULTANT 2 mg $Given 05/31/2024 10:28 PM CONFIGURATION MANAGEMENT CONSULTANT 2 mg lactated ringers infusion at 500 mL/hr, Intravenous, CONTINUOUS, Starting on Wed05/31/24 at 2200, Until Wed05/31/24 at 2359 $New Bag 05/31/2024 10:22 PM CONFIGURATION MANAGEMENT CONSULTANT 500 mL/hr ondansetron (ZOFRAN) injection 8 mg 8 mg, Intravenous, ONCE, Administer over 2-5 Minutes, On Wed05/31/24 at 2200, For 1 dose $Given 05/31/2024 10:27 PM CONFIGURATION MANAGEMENT CONSULTANT 8 mg documented in this encounter Active and Recently Administered Medications Times are shown in CONFIGURATION MANAGEMENT CONSULTANT. Scheduled Medication Order 05/30/2024 05/31/2024 06/01/2024 diphenhydrAMINE [...] Charles RN)2342 ($Given - Provider: Sabrina Tinoco, RN) 0036 ($Given - Provider: Sabrina Tinoco, RN) documented in this encounter Care Teams Flight Attendant Ramp Relationship Specialty Start Date End Date No Ref-Primary, Physician PCP - General 03/15/24 06/17/24 Mor Ramsey Medical Student 04/03/24 Case Samuel MD [address] [place] [address], [address] [place] [address] Assigned Pediatric Specialist Provider 05/18/24 Marcelino, Juhi, RN Specialty Mail Processing Clerk Hematology & Oncology 05/29/24 documented as of this encounter
--- OUTSIDE RECORDS SUMMARY | 2024-07-03 20:32 | XMS_ITS | Encounter Summary ---
Author Organization [facility] Address [address] [place] [address]. [place] [address] Care Team Providers Care Finance Insurance Manager Name Role Phone No Ref-Primary, Physician Primary Care Provider Mor Ramsey Unavailable Unavailable Case Samuel MD Unavailable [phone] Juhi Benson RN Unavailable Unavailable Encounter Details [...] on file Legal Sex Female 8:25 AM SOLAR INSTALLATION FOREMAN Gender Identity Not on file Sexual Orientation Not on file documented as of this encounter Plan of Treatment Upcoming Encounters Date Type Department Care Team (Late st Contact Info) Description 07/04/2024 9:00 AM CDT Lab [facility] [address] [address] Case Samuel MD [address] [place], [place] [address], RO[address] [address] 07/06/2024 8:00 AM CDT Appointment [facility] [address] [phone] Case Samuel MD [address] [place], [place] [address], [address] [address] 07/10/2024 11:30 AM CDT Oncology Visit [facility] [address] [address] Case Samuel MD [address] [place], [place] [address], [address] [address] documented as of this encounter Goals Goal Patient Goal Type Associated Problems Recent Progress Patient-Stated? Author Pain Management General On track( 025 12:40 PM SOLAR INSTALLATION FOREMAN) Yes Juih Benson, RN Note: Goal Statement: I will [...] on filedocumented in this encounter Care Teams Finance Insurance Manager Relationship Specialty Start Date End Date No Ref-Primary, Physician PCP - General 03/15/24 06/17/24 Mor Ramsey Medical Student 04/03/24 Case Samuel MD [address] [place] [address], [address] [place] [address] Assigned Pediatric Specialist Provider 05/18/24 Juhi Benson, RN Specialty Baggage Security Checker Hematology & Oncology 05/29/24 documented as of this encounter
--- OUTSIDE RECORDS SUMMARY | 2024-07-03 20:32 | XMS_ITS | Encounter Summary ---
Author Organization [facility] Address [address] [place] [address]. [place] [address] Care Team Providers Care Gold Stamper Name Role Phone No Ref-Primary, Physician Primary Care Provider Mor Ramsey Unavailable Unavailable Case Samuel MD Unavailable [phone] Juhi Benson RN Unavailable Unavailable Encounter Details Date Type Department Care Team (Late st Contact Info) Description 05/29/2024 Orders Only [facility] [address] [place] [address] Juhi Benson, SOFIA Sickle cell [...] on file Legal Sex Female 8:25 AM STAFF MIDWIFE/APPRENTICESHIP DIRECTOR Gender Identity Not on file Sexual Orientation Not on file documented as of this encounter Plan of Treatment Upcoming Encounters Date Type Department Care Team (Late st Contact Info) Description 07/04/2024 9:00 AM CDT Lab [facility] [address] [address] Case Samuel MD [address] [place], [place] [address], [address] [place] [phone] 07/06/2024 8:00 AM CDT Appointment [facility] [address] [address] Case Samuel MD [address] [place] [address], [address] [place], [place] [address] 07/10/2024 11:30 AM CDT Oncology Visit [facility] [address] [address] Case Samuel MD [address] [place] [address], [address] [address] documented as of this encounter Goals Goal Patient Goal Type Associated Problems Recent Progress Patient-Stated? Author Pain Management General On track( 025 12:40 PM STAFF MIDWIFE/APPRENTICESHIP DIRECTOR) Yes Juhi Benson, RN Note: Goal [...] crisis documented in this encounter Care Teams Gold Stamper Relationship Specialty Start Date End Date No Ref-Primary, Physician PCP - General 03/15/24 06/17/24 Mor Ramsey Medical Student 04/03/24 Case Samuel MD [address] [place] [address], [address] [place] [address] Assigned Pediatric Specialist Provider 05/18/24 Juhi Benson, RN Specialty Antique Furniture Reproducer Hematology & Oncology 05/29/24 documented as of this encounter
--- OUTSIDE RECORDS SUMMARY | 2024-07-03 20:32 | XMS_ITS | Encounter Summary ---
Author Organization [facility] Address [address] [place] [id number] Care Team Providers Care Transfill Technician Name Role Phone No Ref-Primary, Physician Primary Care Provider Mor Ramsey Unavailable Unavailable Case Samuel MD Unavailable [phone] Juhi Benson RN Unavailable Unavailable Reason for Visit * Reason Comments Blood Transfusion 1 unit blood Infusion Fluids and pain medi cations Encounter Details Date Type Department Care Team (Late st Contact Info) Description 05/30/2024 8:00 AM APPLICATION SOFTWARE ENGINEER Infusion Therapy Visit 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); [...] file Legal Sex Female 8:25 AM APPLICATION SOFTWARE ENGINEER Gender Identity Not on file Sexual Orientation Not on file documented as of this encounter Last Filed Vital Signs Vital Sign Reading Time Taken Comments Blood Pressure 109/72 05/30/2024 11:15 AM APPLICATION SOFTWARE ENGINEER Pulse 77 05/30/2024 11:15 AM APPLICATION SOFTWARE ENGINEER Temperature 36.5 C (97.7 F) 05/30/2024 10:21 AM APPLICATION SOFTWARE ENGINEER Respiratory Rate 16 05/30/2024 10:21 AM APPLICATION SOFTWARE ENGINEER Oxygen Saturation 95% 05/30/2024 10:21 AM APPLICATION SOFTWARE ENGINEER Inhaled Oxygen Concentration - - Weight - - Height - - Body Mass Index - - documented in this encounter Patient Instructions * Patient Instructions* Arlene Moses RN - 05/30/2024 8:00 AM APPLICATION SOFTWARE ENGINEER Dear Gianna Hernández Thank you for choosing [facility] ([facility]) for your transfusion. The following information is a summary of our appointment as well as important reminders. If you have any questions on your upcoming Specialty Infusion appointments, please call scheduling at [phone]. It was a pleasure taking care of you today. Sincerely, [facility] [address] [place] [address] ICATION SOFTWARE ENGINEER * Attachments The following attachments cannot be sent through Care Everywhere. * Blood Transfusions: General Info (Icelandic) documented in this encounter Progress Notes * Arlene Moses RN - 05/30/2024 8:00 AM CST Blood Product Transfusion Nursing Note: Gianna Hernández presents today to [facility] for a blood transfusion. During today's [facility] appointment orders from Dr Samuel were completed. Progress note: ID verified by name and . Assessment completed. Vitals were stable throughout time in [facility]. Verbal education given to patient/uniforms sales representative regarding transfusion and possible side effects. Patient/uniforms sales representative verbalized understanding. Glue Bone Crusher present during visit today: Not Applicable. All [...] Discharge instructions were reviewed with patient Yes Patient/uniforms sales representative verbalized understanding of discharge instructions and [...] Arlene Moses RN Alyssa Sakhitab-Kerestes, RN ICATION SOFTWARE ENGINEER documented in this encounter Plan of Treatment Upcoming Encounters Date Type Department Care Team (Late st Contact Info) Description 07/04/2024 9:00 AM CDT Lab [facility] [address] [place] [address] Case Samuel MD [address] [place] [address], [address] [place], [place] [address] 07/06/2024 8:00 AM CDT Appointment [facility] [address] [phone] Case Samuel MD [address] [facility] 484, [address] [place], [place] [address] 07/10/2024 11:30 AM CDT Oncology Visit [facility] [address] [place] [phone] Case Samuel MD [address] [facility] 484, [address] [place] [address] documented as of this encounter Goals Goal Patient Goal Type Associated Problems Recent Progress Patient-Stated? 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) History of transfusion PREPARE RED BLOOD CELLS (UNIT) Routine 05/29/2024 5:12 PM APPLICATION SOFTWARE ENGINEER documented in this encounter Results * Transfuse red blood cells (unit), Sickle Cell (Hgb S) Negative (05/30/2024 10:24 AM APPLICATION SOFTWARE ENGINEER) us Case Samuel MD BLOOD TRANSFUSION ORDERAB LES Final Result * Transfuse red blood cells (unit), 1 Units, Sickle Cell (Hgb S) Negative (05/30/2024 10:24 AM APPLICATION SOFTWARE ENGINEER) Case Samuel MD BLOOD TRANSFUSION ORDERAB LES Final Result * Prepare red blood cells (unit) (05/29/2024 5:12 PM APPLICATION SOFTWARE ENGINEER) Blood Component Type Red Blood Cells [facility] BLOOD BANK Product Code L6997Q10 [facility] BLOO D BANK Unit Status Transfused [facility] BLOO D BANK Unit Number [id number] UU B LOOD BANK CROSSMATCH COMPATIBLE UU BLOOD BANK CODING SYSTEM [id number] U[facility] BLO OD BANK ISSUE DATE AND TIME [id number] [facility] BLOOD BANK UNIT ABO/RH A- [facility] BLOOD BANK UNIT TYPE ISBT 0600 U[facility] BL OOD BANK 05/29/2024 5:12 PM APPLICATION SOFTWARE ENGINEER Case Samuel MD BLOOD BANK PRODUCT ORDERA BLES Final Result [facility] BLOOD BANK [address] [place] [address] documented in [...] of transfusion $Given 05/30/2024 11:18 AM APPLICATION SOFTWARE ENGINEER 5 mLs HYDROmorphone (DILAUDID) injection 2 mg 2 mg, Intravenous, EVERY 1 HOUR PRN, severe pain, moderate pain, Starting on Wed05/30/24 at 0833, For 3 dosesIndications:Sickle cell pain crisis (H) $Given 05/30/2024 10:56 AM APPLICATION SOFTWARE ENGINEER 2 mg $Given 05/30/2024 9:44 AM APPLICATION SOFTWARE ENGINEER 2 mg $Given 05/30/2024 8:39 AM APPLICATION SOFTWARE ENGINEER 2 mg lactated ringers BOLUS 1,000 mL Intravenous, 1,000 mL, ONCE, at 500 mL/hr, Administer over 2 Hours, On Wed05/30/24 at 0845, For 1 doseIndications:Sickle cell pain crisis (H) $New Bag 05/30/2024 10:24 AM APPLICATION SOFTWARE ENGINEER 500 mLs 500 mL/hr sodium chloride [...] of transfusion $Given 05/30/2024 11:18 AM APPLICATION SOFTWARE ENGINEER 20 mLs $Given 05/30/2024 10:20 AM APPLICATION SOFTWARE ENGINEER 20 mLs documented in this encounter Care Teams Transfill Technician Relationship Specialty Start Date End Date No Ref-Primary, Physician PCP - General 03/15/24 06/17/24 Mor Ramsey Medical Student 04/03/24 Case Samuel MD [address] [place] [address], [address] [place] [address] Assigned Pediatric Specialist Provider 05/18/24 Juhi Benson, RN Specialty Radio Board Operator Announcer Hematology & Oncology 05/29/24 documented as of this encounter
--- OUTSIDE RECORDS SUMMARY | 2024-07-03 20:32 | XMS_ITS | Encounter Summary ---
Author Organization [facility] Address [address] [place] [address]. [place] [address] Care Team Providers Care Fine Grade Bulldozer Operator Name Role Phone No Ref-Primary, Physician Primary Care Provider Mor Ramsey Unavailable Unavailable Case Samuel MD Unavailable [phone] Encounter Details Date Type Department Care Team [...] on file Legal Sex Female 8:25 AM SOLVENT PROCESS EXTRACTOR OPERATOR Gender Identity Not on file Sexual Orientation Not on file documented as of this encounter Plan of Treatment Upcoming Encounters Date Type Department Care Team (Late st Contact Info) Description 07/04/2024 9:00 AM CDT Lab [facility] [address] [phone] Case Samuel MD [address] [place] [address], [address] [address] 07/06/2024 8:00 AM CDT Appointment [facility] Advanced Treatment [address] [phone] Case Samuel MD [address] [place], [place] [address], [address] [place], [place] [address] 07/10/2024 11:30 AM CDT Oncology Visit [facility] [address] [phone] Case Samuel MD [address] [place], [place] [address], [address] [id number] documented as of this encounter Goals Goal Patient Goal Type Associated Problems Recent Progress Patient-Stated? Author Pain Management General On track( 025 12:40 PM SOLVENT PROCESS EXTRACTOR OPERATOR) Yes Juhi Benson, RN Note: Goal [...] on filedocumented in this encounter Care Teams Fine Grade Bulldozer Operator Relationship Specialty Start Date End Date No Ref-Primary, Physician PCP - General 03/15/24 06/17/24 Mor Ramsey Medical Student 04/03/24 Case Samuel MD [address] [place] [address], [address] [place] [address] Assigned Pediatric Specialist Provider 05/18/24 documented as of this encounter
--- OUTSIDE RECORDS SUMMARY | 2024-07-03 20:32 | XMS_ITS | Encounter Summary ---
Author Organization [facility] Address [address] [place] [address]. [place] [address] Care Team Providers Care Financial Assistant Name Role Phone No Ref-Primary, Physician Primary Care Provider Mor Ramsey Unavailable Unavailable Case Samuel MD Unavailable [phone] Juhi Benson RN Unavailable Unavailable Encounter Details [...] on file Legal Sex Female 8:25 AM OREMAN Gender Identity Not on file Sexual Orientation Not on file documented as of this encounter Plan of Treatment Upcoming Encounters Date Type Department Care Team (Late st Contact Info) Description 07/04/2024 9:00 AM CDT Lab [facility] [address] [address] Case Samuel MD [address] [place], [place] [address], [address] [address] 07/06/2024 8:00 AM CDT Appointment [facility] Advanced Treatment [address] [phone] Case Samuel MD [address] [place], [place] [address], [address] [id number] 07/10/2024 11:30 AM CDT Oncology Visit [facility] [address] [phone] Case Samuel MD [address] [place], [place] [address], [address] [address] documented as of this encounter Goals Goal Patient Goal Type Associated Problems Recent Progress Patient-Stated? Author Pain Management General On track( 025 12:40 PM OREMAN) Yes Juhi Benson, RN Note: Goal Statement: [...] on filedocumented in this encounter Care Teams Financial Assistant Relationship Specialty Start Date End Date No Ref-Primary, Physician PCP - General 03/15/24 06/17/24 Mor Ramsey Medical Student 04/03/24 Case Samuel MD [address] [place] [address], [address] [place] [address] Assigned Pediatric Specialist Provider 05/18/24 Juhi Benson, RN Specialty Security Officers And Guards Hematology & Oncology 05/29/24 documented as of this encounter
--- OUTSIDE RECORDS SUMMARY | 2024-07-03 20:32 | XMS_ITS | Encounter Summary ---
Author Organization [facility] Address [address] [place] [address]. [place] [address] Care Team Providers Care Heddler Name Role Phone No Ref-Primary, Physician Primary Care Provider Mor Ramsey Unavailable Unavailable Case Samuel MD Unavailable [phone] Juhi Benson RN Unavailable Unavailable Encounter Details [...] on file Legal Sex Female 8:25 AM GOLF TECHNICIAN Gender Identity Not on file Sexual Orientation Not on file documented as of this encounter Plan of Treatment Upcoming Encounters Date Type Department Care Team (Late st Contact Info) Description 07/04/2024 9:00 AM CDT Lab [facility] [address] [address] Case Samuel MD [address] [place], [place] [address], [address] [id number] 07/06/2024 8:00 AM CDT Appointment [facility] Advanced Treatment [address] [phone] Case Samuel MD [address] [place], [place] [address], [address] [address] 07/10/2024 11:30 AM CDT Oncology Visit [facility] [address] [address] Case Samuel MD [address] [place], [place] [address], [address] [address] documented as of this encounter Goals Goal Patient Goal Type Associated Problems Recent Progress Patient-Stated? Author Pain Management General On track( 025 12:40 PM GOLF TECHNICIAN) Yes Juhi Benson, RN Note: Goal [...] on filedocumented in this encounter Care Teams Heddler Relationship Specialty Start Date End Date No Ref-Primary, Physician PCP - General 03/15/24 06/17/24 Mor Ramsey Medical Student 04/03/24 Case Samuel MD [address] [place] [address], [address] [place] [address] Assigned Pediatric Specialist Provider 05/18/24 Juhi Benson, RN Specialty Salesforce Consultant Hematology & Oncology 05/29/24 documented as of this encounter
--- OUTSIDE RECORDS SUMMARY | 2024-07-03 20:32 | XMS_ITS | Encounter Summary ---
Author Organization [place] Address [facility] [place] [address] Care Team Providers Care Mill Crane Operator Name Role Phone No Ref-Primary, Physician Primary Care Provider Mor Ramsey Unavailable Unavailable Case Samuel MD Unavailable [phone] Juhi Benson RN Unavailable Unavailable Reason for Referral * Mental Health Outpatient (Urgent: 3-5 Days) - Pending Review Specialty Diagnoses / Procedures Referred By Contac t Referred To Contact Behavioral Health Diagnoses Severe episode of recurrent major depressive disorder, without psychotic features (H) Case Samuel MD [address] [facility] [address], [address] [place] [address] Phone: tel: fax: Referral ID Status Reason Start Date Expiration Date V isits Requested Visits Authorized [id number] Pending Review 05/29/2024 05/29/2025 1 1 Question Answer Services: Assess/Evaluate for appropriate service (non-medication assessment) My Clinical Question Is: History of chronic pain with depression as major component combined with sickle cell disease and difficulty adjusting to [place]. Requesting evaluation for mental health diagnosis and management. Patient Scheduling Instructions: [facility] will call you to coordinate your care as prescribed by your provider. If you don't hear from a wine sales representative within 2 business days, please [...] plan with any benefit or coverage questions. [facility] will call you to coordinate your care as prescribed by your provider. If you don't hear from a wine sales representative within 2 business days, please call . ER PATROL OFFICER Reason for Visit * Reason Comments Port Draw Labs drawn via port by RN in lab, vitals taken. Oncology Clinic Visit RTN Sickle cell Encounter Details Date Type Department Care Team (Late st Contact Info) Description 05/29/2024 11:30 AM BORDER PATROL OFFICER Oncology Visit [facility] [address] [place] [address] Case Samuel MD [address] [place] [address] 484, [address] [place], [place] [id number] Severe episode of recurrent major depressive disorder, [...] on file Legal Sex Female 8:25 AM BORDER PATROL OFFICER Gender Identity Not on file Sexual Orientation Not on file documented as of this encounter Last Filed Vital Signs Vital Sign Reading Time Taken Comments Blood Pressure 98/67 05/29/2024 11:09 AM BORDER PATROL OFFICER Pulse 106 05/29/2024 11:09 AM BORDER PATROL OFFICER Temperature 37.1 C (98.7 F) 05/29/2024 11:09 AM BORDER PATROL OFFICER Respiratory Rate 18 05/29/2024 11:09 AM BORDER PATROL OFFICER Oxygen Saturation 96% 05/29/2024 11:09 AM BORDER PATROL OFFICER Inhaled Oxygen Concentration - - Weight 54.6 kg (120 lb 6.4 oz) 05/29/2024 11:09 AM BORDER PATROL OFFICER Height - - Body Mass Index 22.75 05/29/2024 12:01 AM BORDER PATROL OFFICER documented in this encounter Progress Notes [...] it has been hard to transition to [place], especially in winter with a toddler. She [...] She said that she was born in [place] but moved throughout her childhood because her dad was in the . She is the youngest of 9 children she said, though she is the only one with sickle cell disease. Among other places, she was living in [place] for a time and then moved to [place]. It was there that shemet her boyfriend. She ultimately moved back to [place] and he came with her. It was there that they had a daughter Chanda, now 2 years old. That was a difficult for her, and she feels like she never wants to be again. She was living in [place], [place] and receiving care at [facility], though she did not get the sense that business unit controller there was super comfortable with sickle cell disease. Around the time of her , there was an increase in her opioid needs and she is never been able to get back to where she was. They tried lots of different options including OxyContin on top of Dilaudid and intermittent transfusions. She also reportedthat she was found to have had a stroke around that time, but she was not put on chronic transfusions. The transfusions were done for pain purposes and were irregularly scheduled. She does tend to get some drop in her hemoglobin when she has a pain crisis as well or is sick, though in recent monthsvalentina has visited the emergency department multiple times a week. She thinks her last transfusion wasabout 3 weeks ago. She moved to [place] about 2 months ago. Her boyfriend is [...] worked up for symptomatic gallstones back in [place], but there were some delays in getting a cholecystectomy and by the time it was getting scheduled, they were moving to [place]. She reports that she has had a [...] them both so she can be a hoty-st-phhz mom. Sickle Cell Disease Comprehensive Checklist Stroke/silent [...] titrate as needed and notify the primary business unit controller via VeliQ message if changes to the plan below are needed. Also please note that there is a mental health component to her pain, particularly in terms of adjustment to [place] which is likely to make her pain worse.. 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 She is 1 of 9 [...] Connections: Socially Integrated (03/28/2024) [facility] Do you often feel [...] Rate 86 BPM Atrial Rate 86 BPM DE Interval 154 ms QRS Duration 78 ms QT 370 ms QTc 442 ms P Inwood 18 degrees R AXIS 55 degrees T Inwood 25 degrees Interpretation ECG Sinus rhythm Nonspecific T wave abnormality Abnormal ECG When compared with ECG of 14-May-2024 22:12, Nonspecific T wave abnormality now evident in Inferior leads Confirmed by SEE ED PROVIDER NOTE FOR, ECG INTERPRETATION ([id number]), editorial manager Neeraj Allison ([id number]) on 05/20/2024 7:48:17 AM Basic metabolic panel [...] Absolute NRBCs 0.2 10e3/uL Extra Green Top (Gaastra Heparin) Tube Collection Time: 05/20/24 9:09 AM Result Value Ref Range Hold Specimen [facility] Basic metabolic panel Collection Time: [...] Rate 103 BPM Atrial Rate 103 BPM DE Interval 124 ms QRS Duration 80 ms QT 316 ms QTc 413 ms P Inwood 82 degrees R AXIS 90 degrees T Inwood 70 degrees Interpretation ECG Sinus tachycardia Rightward axis Borderline ECG When compared with ECG of 20-May-2024 07:36, Nonspecific T wave abnormality no longer evident in Anterior leads Confirmed by SEE ED PROVIDER NOTE FOR, ECG INTERPRETATION ([id number]), editorial manager Letciia Warner ([id number]) on 05/22/2024 4:13:58 PM Basic metabolic panel [...] None Seen Elliptocytes Slight (A) None Seen Ziegler-Felt Bodies Present (A) None Seen Polychromasia Slight (A) None Seen RBC Fragments Slight (A) None Seen Sickle Cells Moderate (A) None Seen Target Cells Slight (A) None Seen ECG 12-LEAD WITH MUSE (LHE) Collection Time: 05/23/24 6:54 PM Result Value Ref Range Systolic Blood Pressure mmHg Diastolic Blood Pressure mmHg Ventricular Rate 77 BPM Atrial Rate 77 BPM DE Interval 160 ms QRS Duration 82 ms QT 362 ms QTc 409 ms P Inwood 61 degrees R AXIS 92 degrees T Inwood 49 degrees Interpretation ECG Sinus rhythm Rightward axis Borderline ECG When compared with ECG of 22-May-2024 15:14, Nonspecific T wave abnormality no longer evident in Inferior leads Confirmed by SEE ED PROVIDER NOTE FOR, ECG INTERPRETATION ([id number]), editorial manager SELMA GARRISON ([id number]) on 05/23/2024 7:30:33 PM CBC (+ platelets, [...] Rate 91 BPM Atrial Rate 91 BPM DE Interval 142 ms QRS Duration 80 ms QT 352 ms QTc 432 ms P Inwood 39 degrees R AXIS 62 degrees T Inwood 23 degrees Interpretation ECG Sinus rhythm Nonspecific T wave abnormality Abnormal ECG When compared with ECG of 23-May-2024 18:54, Nonspecific T wave abnormality now evident in Inferior leads Nonspecific T wave abnormality now evident in Anterior leads Confirmed by SEE ED PROVIDER NOTE FOR, ECG INTERPRETATION ([id number]), editorial manager BEN PRAKASH ([id number]) on 05/27/2024 12:22:37 PM Comprehensive metabolic panel [...] female who recently started receiving care at [facility] for sickle cell disease, HbSS (Apr 2024). She has several comorbidities related to sickle cell disease, including Chronic pain, AVN of the left hip, history of pulmonary embolism, history of transfusions with iron overload, history of stroke(details unclear), right eye retinopathy, acute on chronic anemia, gallstones, and a history of acute chest syndrome. She has been a regular visitor to the [facility] emergency department as well, and [...] just the SCD. Her adjustment to the [facility] has been challenging, particularly at this time of year and being at home with their daughter Today, we focused on the mental health, including both psychological and psychiatric care. In my discussions with the emergency department colleagues at [facility], I stressed that a sustainable [...] think outside the box. - Mental health telecom analyst referral placed HbSS Disease with several [...] around the hip and femur strong. -Orthopedic telecom analyst referral placed. Will defer to them [...] per the note Case Samuel MD Classical Wrapper Opener Division of Hematology, Oncology, and Transplantation [facility] [place] The longitudinal plan of care for the diagnosis(es)/condition(s) as documented were addressed during this visit. Due to the added complexity in care, I will continue to support Gianna in the subsequent management and with ongoing continuity of care. ER PATROL OFFICER documented in this encounter Nursing Notes [...] checked into next appt. Jenifer Sheffield RN ER PATROL OFFICER * Laura Rg - 05/29/2024 11:30 AM [...] not needed today. Pharmacy name entered into [employer]: [facility] [address] [place], [place] - [address] [facility], [place] - [address] [facility] Frailty Screening: Is the patient here for a new oncology consult visit in cancer care? 2. No Clinical concerns:Provider came in during rooming. Laura Rg ER PATROL OFFICER documented in this encounter Plan of Treatment Upcoming Encounters Date Type Department Care Team (Late st Contact Info) Description 07/04/2024 9:00 AM CDT Lab [facility] [address] [phone] Case Samuel MD [address] [place] [address], [address] [id number] 07/06/2024 8:00 AM CDT Appointment [facility] Advanced Treatment [address] [phone] Case Samuel MD [address] [place] [address] 484, [address] [place], [place] [address] 07/10/2024 11:30 AM CDT Oncology Visit [address] [phone] Case Samuel MD [address] [place], [place] [address], ROOM [address] [id number] Scheduled Referrals Name Type Priority Associated Diagnoses Orde r Schedule Adult Mental Health Worm Packer Referral Referral Urgent: 3-5 Days Severe episode of recurrent major depressive disorder, without psychotic features (H) Expected: 05/29/2024 (Approximate), Expires: 05/29/2025 documented as of this encounter Goals Goal Patient Goal Type Associated Problems Recent Progress Patient-Stated? Author Pain Management General On track( 025 12:40 PM BORDER PATROL OFFICER) Yes Juhi Benson, SOFIA Note: Goal [...] AND PLATELET MORPHOLOGY Routine 05/29/2024 11:23 AM BORDER PATROL OFFICER CBC WITH PLATELETS AND DIFFERENTIAL Routine 05/29/2024 11:23 AM BORDER PATROL OFFICER TYPE AND SCREEN, ADULT Add-On 11:23 AM BORDER PATROL OFFICER History of transfusion BILL ONLY- CAPILLARY ELECTROPHORESIS Routine 05/29/2024 11:23 AM BORDER PATROL OFFICER BILL ONLY- SICKLE SOLUBILITY BILL Routine 05/29/2024 11:23 AM BORDER PATROL OFFICER ROUTINE UA WITH MICROSCOPIC REFLEX TO CULTURE Routine 05/29/2024 11:23 AM BORDER PATROL OFFICER CBC WITH PLATELETS & DIFFERENTIAL Routine 05/29/2024 11:23 AM BORDER PATROL OFFICER GENOTYPE RED BLOOD CELL Routine 05/29/19 25 11:23 AM BORDER PATROL OFFICER History of transfusion RETICULOCYTE COUNT Routine 05/29/2024 11 :23 AM BORDER PATROL OFFICER HEMOGLOBIN EVAL REFLEX TO ELP OR RBC SOLUBILITY Routine 05/29/2024 11:23 AM BORDER PATROL OFFICER FERRITIN Routine 05/29/2024 11:23 AM BORDER PATROL OFFICER COMPREHENSIVE METABOLIC PANEL Routine 05/29/2024 11:23 AM BORDER PATROL OFFICER ABO/RH TYPE AND SCREEN Routine 11:23 AM BORDER PATROL OFFICER History of transfusion URINE CULTURE Routine 05/29/2024 11:23 AM BORDER PATROL OFFICER documented in this encounter Results * HGB Eval Reflex to ELP or RBC Solubility (05/29/2024 11:23 AM BORDER PATROL OFFICER) Pathologist [facility] Alpha Globin (HBA1 and HBA2) DD Bill Billed 05/31/2024 2:46 PM BORDER PATROL OFFICER [facility] Comment: Performed By: [facility] [address] [place] [address] Debrander: Devon Healy MD, PhD CLIA Number: [id number] Blood VENOUS LINE / Unknown IVAD (Port) / Unknown 05/29/2024 11:23 AM BORDER PATROL OFFICER 05/29/2024 11:30 AM BORDER PATROL OFFICER Case Samuel MD LAB CHARGE PERFORMABLES F inal Result Performing Organization Address [facility] Co de Phone Number [facility] [address] [place] [address], [facility] [phone] * Bill Only- Sickle Solubility Bill (05/29/2024 11:23 AM BORDER PATROL OFFICER) [facility] Sickle Solubility Reflex Bill Billed 05/31/2024 2:46 PM BORDER PATROL OFFICER [facility] Comment: Performed By: [facility] [address] [place] [address] Debrander: Devon Healy MD, PhD CLIA Number: [id number] Blood VENOUS LINE / Unknown IVAD (Port) / Unknown 05/29/2024 11:23 AM BORDER PATROL OFFICER 05/29/2024 11:30 AM BORDER PATROL OFFICER us Case Samuel MD LAB CHARGE PERFORMABLES F inal Result Performing Organization Address City/[facility]/ZIP Co de Phone Number [facility] [address] [place] [address], [facility] [phone] * Adult Type and Screen (05/29/2024 11:23 AM BORDER PATROL OFFICER) Pathologist [facility] ABO/RH(D) A POS 05/28/2024 6:00 PM BORDER PATROL OFFICER U BLOOD BANK Antibody Screen Negative Negative 05/28/2024 6:00 PM BORDER PATROL OFFICER U BLOOD BANK SPECIMEN EXPIRATION DATE [id number] 05/28/2024 6:00 PM BORDER PATROL OFFICER U BLOOD BANK Blood VENOUS LINE / Unknown IVAD (Port) / Unknown 05/29/2024 11:23 AM BORDER PATROL OFFICER 05/29/2024 11:29 AM BORDER PATROL OFFICER Case Samuel MD LAB - BLOOD BANK TEST ORD ER Final Result BLOOD BANK [address] [place] [phone] * Urine Culture (05/29/2024 11:23 AM BORDER PATROL OFFICER) [facility] Culture <10,000 CFU/mL Mixture of Urogenital Vickie 05/30/2024 9:45 AM BORDER PATROL OFFICER [facility] Urine URINE SPECIMEN OBTAINED BY CLEAN CATCH PROCEDURE / Unknown Non-blood Collection / Unknown 05/29/2024 11:23 AM BORDER PATROL OFFICER 05/29/2024 11:41 AM BORDER PATROL OFFICER Case Samuel MD LAB - MICRO GENERAL ORDER SYD Final Result [facility] Inf. Diseases Diag. Lab [address] [facility], [address] [place] [address] * (ABNORMAL) RBC and Platelet Morphology (05/29/2024 11:23 AM BORDER PATROL OFFICER) [facility] RBC Morphology Confirmed RBC Indices 05/29/2024 12:33 PM BORDER PATROL OFFICER [facility] Platelet Assessment Automated Count Confirmed. Platelet morphology is normal. Automated Count Confirmed. Platelet morphology is normal. 05/29/2024 12:33 PM BORDER PATROL OFFICER [facility] Polychromasia Moderate(A) None Seen 05/29/2024 12:33 PM BORDER PATROL OFFICER [facility] Sickle Cells Moderate(A) None Seen 05/29/2024 12:33 PM BORDER PATROL OFFICER [facility] Target Cells Slight(A) None Seen 05/29/2024 12:33 PM BORDER PATROL OFFICER [facility] Teardrop Cells Slight(A) None Seen 05/29/2024 12:33 PM [facility] Blood VENOUS LINE / Unknown IVAD (Port) / Unknown 05/29/2024 11:23 AM BORDER PATROL OFFICER 05/29/2024 11:29 AM BORDER PATROL OFFICER Case Samuel MD LAB - BLOOD ORDERABLES Fi nal Result [facility] [place] [address] [facility] 1st [place] [address] * (ABNORMAL) CBC with platelets and differential (05/29/2024 11:23 AM BORDER PATROL OFFICER) WBC Count 15.8(H) 4.0 - 11.0 10e3/uL 05/29/2024 12:37 PM [facility] RBC Count 2.11(L) 3.80 - 5.20 10e6/uL 05/29/2024 12:37 PM [facility] Hemoglobin 6.7(LL) 11.7 - 15.7 g/dL 05/29/2024 12:37 PM [facility] Hematocrit 19.2(L) 35.0 - 47.0 % 05/29/2024 12:37 PM [facility] MCV 91 78 - 100 fL 05/29/2024 12:37 PM [facility] MCH 31.8 26.5 - 33.0 pg 05/29/2024 12:37 PM [facility] MCHC 34.9 31.5 - 36.5 g/dL 05/29/2024 12:37 PM [facility] RDW 23.1(H) 10.0 - 15.0 % 05/29/2024 12:37 PM [facility] Platelet Count 417 150 - 450 10e3/uL 05/29/2024 12:37 PM [facility] % Neutrophils 56 % 05/29/2024 12:37 PM [facility] % Lymphocytes 25 % 05/29/2024 12:37 PM [facility] % Monocytes 15 % 05/29/2024 12:37 PM [facility] % Eosinophils 2 % 05/29/2024 12:37 PM [facility] % Basophils 1 % 05/29/2024 12:37 PM [facility] % Immature Granulocytes 1 % 05/29/2024 12:37 PM [facility] NRBCs per 100 WBC 2(H) <1 /100 025 12:37 PM [facility] Absolute Neutrophils 8.8(H) 1.6 - 8.3 10e3/uL 05/29/2024 12:37 PM [facility] Absolute Lymphocytes 4.0 0.8 - 5.3 10e3/uL 05/29/2024 12:37 PM [facility] Absolute Monocytes 2.4(H) 0.0 - 1.3 10e3/uL 05/29/2024 12:37 PM [facility] Absolute Eosinophils 0.3 0.0 - 0.7 10e3/uL 05/29/2024 12:37 PM [facility] Absolute Basophils 0.2 0.0 - 0.2 10e3/uL 05/29/2024 12:37 PM [facility] Absolute Immature Granulocytes 0.2 <=0.4 10e3/uL 05/29/2024 12:37 PM [facility] Absolute NRBCs 0.2 10e3/uL 05/29/2024 12:37 PM [facility] Blood VENOUS LINE / Unknown IVAD (Port) / Unknown 05/29/2024 11:23 AM BORDER PATROL OFFICER 05/29/2024 11:29 AM [facility] us Case Samuel MD LAB - BLOOD ORDERABLES Fi nal Result [facility] [place] [address] [facility] 1st [place] [address] * Genotype Red Blood Cell (05/29/2024 11:23 AM [facility]) See Scanned Result GENOTYPE RED BLOOD CELL-Scanned 05/31/2024 10:16 AM [facility] Blood VENOUS LINE / Unknown IVAD (Port) / Unknown 05/29/2024 11:23 AM BORDER PATROL OFFICER 05/29/2024 11:29 AM BORDER PATROL OFFICER us Case Samuel MD LAB - BLOOD ORDERABLES Fi nal Result [facility] [address] [phone] * (ABNORMAL) HGB Eval Reflex to ELP or RBC Solubility (05/29/2024 11:23 AM BORDER PATROL OFFICER) Hemoglobin A 15.0(L) 95.0 - 97.9 % 05/31/2024 2:46 PM BORDER PATROL OFFICER [facility] Hemoglobin A2 3.0 2.0 - 3.5 % 05/31/2024 2:46 PM BORDER PATROL OFFICER [facility] Hemoglobin F 10.8(H) 0.0 - 2.1 % 05/31/2024 2:46 PM BORDER PATROL OFFICER [facility] Hemoglobin S 71.2(H) 0.0 - 0.0 % 05/31/2024 2:46 PM BORDER PATROL OFFICER [facility] Hemoglobin C 0.0 0.0 - 0.0 % 05/31/2024 2:46 PM BORDER PATROL OFFICER [facility] Hemoglobin E 0.0 0.0 - 0.0 % 05/31/2024 2:46 PM BORDER PATROL OFFICER [facility] Hemoglobin - Other 0.0 0.0 - 0.0 % 05/31/2024 2:46 PM BORDER PATROL OFFICER [facility] Hemoglobin Evaluation See Note 05/31/2024 2:46 PM BORDER PATROL OFFICER [facility] Comment: Impression: Hb S present [...] by Alpha Globin (HBA1 and HBA2) Deletion/Duplication ([facility] test #[id number]) should be considered. Hb S/beta-plus thalassemia is typically characterized by more Hb S than Hb A with the presence of microcytosis. If microcytosis is present and Hb S/beta-plus thalassemia is suspected, Beta Globin (HBB) Sequencing ([facility] test #[id number]) is suggested. Hemoglobin analysis should be offered [...] developed and its performance characteristics determined by [facility]. It has not been cleared or approved by the U.S. Food and Drug Administration. This test was performed in a CLIA-certified laboratory and is intended for clinical purposes. Sickle Cell Solubility Reflex Positive(A) 05/31/2024 2:46 PM BORDER PATROL OFFICER [facility] Comment: INTERPRETIVE INFORMATION: Sickle Cell Solubility Reflex Not Performed: Solubility testing for Hemoglobin S not indicated. 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 Additional charges apply. Conf Previous: Positive for Hemoglobin S by HPLC. Solubility testing performed previously and not repeated with this submission. Hgb Capillary Electrophoresis Reflex Performed 05/31/2024 2:46 PM BORDER PATROL OFFICER [facility] [employer] [facility] Comment: INTERPRETIVE INFORMATION: Hgb Capillary Electrophoresis Reflex Not Performed: Confirmation by Capillary Electrophoresis not indicated. Performed: Results confirmed by Capillary Electrophoresis. Additional charges apply. Conf Previous: Capillary Electrophoresis confirmation performed as part of a previous submission. Confirmation not repeated with this submission. Performed By: [facility] [address] [place] [id number] Debrander: Devon Healy MD, PhD CLIA Number: [id number] Blood VENOUS LINE / Unknown IVAD (Port) / Unknown 05/29/2024 11:23 AM BORDER PATROL OFFICER 05/29/2024 11:30 AM BORDER PATROL OFFICER us Case Samuel MD LAB - BLOOD ORDERABLES Fi nal Result [facility] [address] [place] [id number], [facility] [phone] * (ABNORMAL) Ferritin (05/29/2024 11:23 AM BORDER PATROL OFFICER) Ferritin 1,559(H) 6 - 175 ng/mL 05/29/2024 12:43 PM BORDER PATROL OFFICER [facility] Blood VENOUS LINE / Unknown IVAD (Port) / Unknown 05/29/2024 11:23 AM BORDER PATROL OFFICER 05/29/2024 11:29 AM BORDER PATROL OFFICER us Case Samuel MD LAB - BLOOD ORDERABLES Fi nal Result Performing Organization Address City/[facility]/ZIP Co de Phone Number [facility] Clinics and Surgery [address] 1st [place] [address] * (ABNORMAL) Routine UA with micro reflex to culture (05/29/2024 11:23 AM BORDER PATROL OFFICER) Color Urine Yellow Colorless, Straw, Light Yellow, Yellow 05/29/2024 11:41 AM [facility] Appearance Urine Slightly Cloudy(A) Clear 05/29/2024 11:41 AM [facility] Glucose Urine Negative Negative mg/dL 05/29/2024 11:41 AM [facility] Bilirubin Urine Negative Negative 11:41 AM [facility] [facility] Ketones Urine Negative Negative mg/dL 05/29/2024 11:41 AM [facility] Specific [place] Urine 1.013 1.003 - 1.035 05/29/2024 11:41 AM [facility] Blood Urine Negative Negative 05/29/2024 11:41 AM [facility] pH Urine 7.0 5.0 - 7.0 05/29/2024 11:41 AM [facility] Protein Albumin Urine Negative Negative mg/dL 05/29/2024 11:41 AM [facility] Urobilinogen Urine Normal Normal, 2.0 mg/dL 05/29/2024 11:41 AM BORDER PATROL OFFICER [facility] Nitrite Urine Negative Negative 05/29/2024 11:41 AM BORDER PATROL OFFICER [facility] Leukocyte Esterase Urine Moderate(A) Negative 05/29/2024 11:41 AM BORDER PATROL OFFICER [facility] Mucus Urine Present(A) None Seen /LPF 05/29/2024 11:41 AM BORDER PATROL OFFICER [facility] RBC Urine 6(H) <=2 /HPF 05/29/2024 11:41 AM BORDER PATROL OFFICER [facility] WBC Urine 3 <=5 /HPF 05/29/2024 11:41 AM BORDER PATROL OFFICER [facility] Squamous Epithelials Urine 18(H) <=1 /HPF 05/29/2024 11:41 AM [facility] Urine URINE SPECIMEN OBTAINED BY CLEAN CATCH PROCEDURE / Unknown Non-blood Collection / Unknown 05/29/2024 11:23 AM BORDER PATROL OFFICER 05/29/2024 11:29 AM BORDER PATROL OFFICER Narrative [facility] - 05/29/2024 11:41 AM BORDER PATROL OFFICER Urine Culture ordered based on laboratory criteria Case Samuel MD LAB - URINE ORDERABLES Fi nal Result [facility] [address] 1st [place] [address] * (ABNORMAL) Comprehensive metabolic panel (05/29/2024 11:23 AM BORDER PATROL OFFICER) Sodium 139 135 - 145 mmol/L 05/29/2024 11:58 AM [facility] Potassium 4.2 3.4 - 5.3 mmol/L 05/29/2024 11:58 AM [facility] Carbon Dioxide (CO2) 24 22 - 29 mmol/L 05/29/2024 11:58 AM [facility] Anion Gap 10 7 - 15 mmol/L 05/29/2024 11:58 AM [facility] Urea Nitrogen 9.2 6.0 - 20.0 mg/dL 05/29/2024 11:58 AM [facility] Creatinine 0.75 0.51 - 0.95 mg/dL 05/29/2024 11:58 AM [facility] GFR Estimate >90 >60 mL/min/1.7 3m2 05/29/2024 11:58 AM [facility] Comment:eGFR calculated usin 2020 CKD-EPI equation. Calcium 8.9 8.8 - 10.4 mg/dL 05/29/2024 11:58 AM [facility] Chloride 105 98 - 107 mmol/L 05/29/2024 11:58 AM [facility] Glucose 109(H) 70 - 99 mg/dL 05/29/2024 11:58 AM [facility] Alkaline Phosphatase 83 40 - 150 U/L 05/29/2024 11:58 AM [facility] AST 49(H) 0 - 45 U/L 05/29/2024 11:58 AM [facility] ALT 21 0 - 50 U/L 05/29/2024 11:58 AM [facility] Protein Total 7.3 6.4 - 8.3 g/dL 05/29/2024 11:58 AM [facility] Albumin 4.1 3.5 - 5.2 g/dL 05/29/2024 11:58 AM [facility] Bilirubin Total 2.2(H) <=1.2 mg/dL 05/29/2024 11:58 AM [facility] Blood VENOUS LINE / Unknown IVAD (Port) / Unknown 05/29/2024 11:23 AM BORDER PATROL OFFICER 05/29/2024 11:29 AM [facility] Case Samuel MD LAB - BLOOD ORDERABLES Fi nal Result [facility] [address] [facility] [address] 1st [place] [address] * (ABNORMAL) Reticulocyte count (05/29/2024 11:23 AM [facility]) Pathologist [facility] % Reticulocyte 29.8(H) 0.5 - 2.0 % 05/29/2024 12:00 PM [facility] Absolute Reticulocyte 0.631(H) 0.025 - 0.095 10e6/uL 05/29/2024 12:00 PM BORDER PATROL OFFICER [facility] Blood VENOUS LINE / Unknown IVAD (Port) / Unknown 05/29/2024 11:23 AM BORDER PATROL OFFICER 05/29/2024 11:29 AM BORDER PATROL OFFICER us Case Samuel MD LAB - BLOOD ORDERABLES Fi nal Result [facility] [place] [address] [facility] 1st [place] [address] documented in this encounter Visit Diagnoses Diagnosis [...] Wed05/29/24 at 1130 $Given 05/29/2024 11:29 AM BORDER PATROL OFFICER 5 mLs sodium chloride (PF) 0.9% PF flush 20 mL 20 mL, Intravenous, ONCE, On Wed05/29/24 at 1130, For 1 dose $Given 05/29/2024 11:30 AM BORDER PATROL OFFICER 20 mLs documented in this encounter Care Teams Mill Crane Operator Relationship Specialty Start Date End Date No Ref-Primary, Physician PCP - General 03/15/24 06/17/24 Mor Ramsey Medical Student 04/03/24 Case Samuel MD [address] [facility] [address] [place] [address] Assigned Pediatric Specialist Provider 05/18/24 Juhi Benson, RN Specialty Comptroller Hematology & Oncology 05/29/24 documented as of this encounter
--- OUTSIDE RECORDS SUMMARY | 2024-07-03 20:33 | XMS_ITS | Encounter Summary ---
Author Organization [facility] Address [address] [place] [address]. [place] [address] Care Team Providers Care Alliance Manager Name Role Phone No Ref-Primary, Physician Primary Care Provider Mor Ramsey Unavailable Unavailable Case Samuel MD Unavailable [phone] Juhi Benson RN Unavailable Unavailable Reason for Visit * Reason Comments Sickle Cell Pain Crisis Chest Pain Encounter Details Date Type Department Care Team (Late st Contact Info) Description 06/05/2024 11:41 AM MANAGER CORPORATE RESPONSIBILITY - 06/05/2024 3:28 PM [facility] Emergency Room [address] [place] [address] Stiven Madsen MD [address] [address] Star Gifford MD [address] [place], [place] [id number] Sickle cell pain crisis (H) Discharge Disposition: [...] file Legal Sex Female 8:25 AM MANAGER CORPORATE RESPONSIBILITY Gender Identity Not on file Sexual Orientation Not on file documented as of this encounter Last Filed Vital Signs Vital Sign Reading Time Taken Comments Blood Pressure 114/67 06/05/2024 3:00 PM MANAGER CORPORATE RESPONSIBILITY Pulse 74 06/05/2024 3:00 PM MANAGER CORPORATE RESPONSIBILITY Temperature 36.8 C (98.3 F) 06/05/2024 11:37 AM MANAGER CORPORATE RESPONSIBILITY Respiratory Rate 18 06/05/2024 11:37 AM MANAGER CORPORATE RESPONSIBILITY Oxygen Saturation 99% 06/05/2024 3:00 PM MANAGER CORPORATE RESPONSIBILITY Inhaled Oxygen Concentration - - Weight 52.2 kg (115 lb) 06/05/2024 11:37 AM MANAGER CORPORATE RESPONSIBILITY Height 154.9 cm (5' 1) 06/05/2024 11:37 AM MANAGER CORPORATE RESPONSIBILITY Body Mass Index 21.73 06/05/2024 11:37 AM MANAGER CORPORATE RESPONSIBILITY documented in this encounter Discharge Instructions * Discharge Instructions* Stiven Madsen MD - 06/05/2024 12:59 PM MANAGER CORPORATE RESPONSIBILITY You were seen in the emergency department for a pain crisis. You were given medications and IV fluids. Please continue to follow-up with your established pull up hand after this ED visit. GER CORPORATE RESPONSIBILITY documented in this encounter Medications at Time [...] with other provider:Did you involve another provider (it infrastructure consultant, , pharmacy, etc.)?: No Discharge. No recommendations on prescription strength medication(s). See documentation for any additional details. MIPS: Not Applicable MEDICATIONS GIVEN IN THE EMERGENCY: Medications lactated ringers infusion (0 mLs Intravenous Stopped 06/05/24 7772) ondansetron (ZOFRAN) injection 8 mg (8 mg Intravenous $Given 06/05/24 123) diphenhydrAMINE (BENADRYL) capsule 25 mg (25 mg Oral $Given 06/05/24 1240) NEW PRESCRIPTIONS STARTED AT TODAY'S ER VISIT Discharge Medication List as of 06/05/2024 3:28 PM HPI Patient information was obtained from: Patient Use of Java Application Developer: N/A Gianna Hernández is a 29 year [...] culture-negative, had [facility]cath in [facility] Functional asplenia Gallstones Hb-SS disease [...] Currently Drug use: Never Social History Narrative [id number] mom. Recently moved to [place] from [place], [place]. She is 1 of 9 [...] Social Connections: Socially Integrated (03/28/2024) Received from [facility] Social Connections Do you often feel lonely [...] abnormality. Rate: 88 BPM Rhythm: Sinus rhythm [place]: 81 RI Interval: 148 ms QRS Interval: 82 ms [...] my direction. Stiven Madsen M.D. Emergency Medicine [facility] EMERGENCY ROOM [address] [facility] [phone] Dept: [phone] Stiven Madsen MD 06/05/24 1433 Stiven Madsen MD 06/05/24 1938 GER CORPORATE RESPONSIBILITY GER CORPORATE RESPONSIBILITY * Jose Ramon Sims, RN - 06/05/2024 [...] WDL Cognitive/Neuro/Behavioral WDL Cognitive/Neuro/Behavioral WDL WDL GER CORPORATE RESPONSIBILITY documented in this encounter Plan of Treatment Upcoming Encounters Date Type Department Care Team (Late st Contact Info) Description 07/04/2024 9:00 AM CDT Lab [facility] [address] [place] [address] Case Samuel MD [address] [place] [address] [address], [address] [place], [place] [address] 07/06/2024 8:00 AM CDT Appointment [facility] [place] [address] [place] [phone] Case Samuel MD [address] [facility] [address], [address] [place], [place] [phone] 07/10/2024 11:30 AM CDT Oncology Visit [facility] [address] [place] [address] Case Samuel MD [address] [facility] [address], [address] [place], [place] [id number] documented as of this encounter Goals Goal Patient Goal Type Associated Problems Recent Progress Patient-Stated? Author Pain Management General On track( 025 12:40 PM MANAGER CORPORATE RESPONSIBILITY) Yes Juhi Benson, RN Note: Goal Statement: [...] Associated Diagnosis Comments ECG 12-LEAD WITH MUSE SJN,SJO,LUCIANO STAT 06/05/2024 11:40 AM MANAGER CORPORATE RESPONSIBILITY documented in this encounter Results * ECG 12-LEAD WITH MUSE (E) (06/05/2024 11:40 AM MANAGER CORPORATE RESPONSIBILITY) Systolic Blood Pressure mmHg RADIOLOGY RESULTS Diastolic Blood Pressure mmHg RADIOLOGY RESULTS Ventricular Rate 88 BPM RAD IOLOGY RESULTS Atrial Rate 88 BPM RADIOLOG Y RESULTS RI Interval 148 ms RADIOLOG Y RESULTS QRS Duration 82 ms RADIOLO GY RESULTS QT 388 ms RADIOLOGY RESULTS QTc 469 ms RADIOLOGY RESULTS P [place] 43 degrees RADIOLOGY RESULTS R AXIS 81 degrees RADIOLOGY RESULTS T [place] 57 degrees RADIOLOGY RESULTS Interpretation ECG Sinus rhythm Nonspecific T wave abnormality Prolonged QT Abnormal ECG When compared with ECG of 03-Jun-2024 15:24, No significant change was found Confirmed by SEE ED PROVIDER NOTE FOR, ECG INTERPRETATION (0205), script editor Ariadna Shabazz ([id number]) on 06/05/2024 12:02:47 PM RADIOLOGY RESULTS 06/05/2024 11:4 0 AM MANAGER CORPORATE RESPONSIBILITY 06/05/2024 12:02 PM MANAGER CORPORATE RESPONSIBILITY us Stiven Madsen MD ECG ORDERABLES Edited [...] For 1 dose $Given 06/05/2024 12:40 PM MANAGER CORPORATE RESPONSIBILITY 25 mg heparin lock flush 10 unit/mL [...] for each lumen $Given 06/05/2024 3:20 PM MANAGER CORPORATE RESPONSIBILITY 5 mLs HYDROmorphone (DILAUDID) injection 2 mg 2 mg, Intravenous, EVERY 1 HOUR PRN, moderate pain, severe pain, Starting on Wed06/05/24 at 1153 $Given 06/05/2024 2:56 PM MANAGER CORPORATE RESPONSIBILITY 2 mg $Given 06/05/2024 1:54 PM MANAGER CORPORATE RESPONSIBILITY 2 mg $Given 06/05/2024 12:40 PM MANAGER CORPORATE RESPONSIBILITY 2 mg lactated ringers infusion at 500 mL/hr, Intravenous, CONTINUOUS, Starting on Wed06/05/24 at 1200, Until Wed06/05/24 at 1359 $New Bag 06/05/2024 12:39 PM MANAGER CORPORATE RESPONSIBILITY 500 mL/hr ondansetron (ZOFRAN) injection 8 mg 8 mg, Intravenous, ONCE, Administer over 2-5 Minutes, On Wed06/05/24 at 1200, For 1 dose $Given 06/05/2024 12:39 PM MANAGER CORPORATE RESPONSIBILITY 8 mg documented in this encounter Active and Recently Administered Medications Times are shown in MANAGER CORPORATE RESPONSIBILITY. Scheduled Medication Order 06/03/2024 06/04/2024 06/05/2024 ondansetron [...] PRN, moderate pain, severe pain, Starting on 06/05/24 at 1153 1240 ($Given - Provi nas: Shane Santos RN)1354 ($Given - Provider: Shane Santos RN)1456 ($Given - Provider: Shane Santos RN) documented in this encounter Care Teams Alliance Manager Relationship Specialty Start Date End Date No Ref-Primary, Physician PCP - General 03/15/24 06/17/24 Mor Ramsey Medical Student 04/03/24 Case Samuel MD [address] [place] [address] [address] [place] [address] Assigned Pediatric Specialist Provider 05/18/24 Juhi Benson, RN Specialty Career Development Associate Hematology & Oncology 05/29/24 documented as of this encounter
--- OUTSIDE RECORDS SUMMARY | 2024-07-03 20:33 | XMS_ITS | Encounter Summary ---
Author Organization [facility] Address [address] [place] [address] Care Team Providers Care Is Manager Name Role Phone R[employer]El[employer] Unavailable Unavailable Case Samuel MD Unavailable [phone] Juhi Benson RN Unavailable Unavailable Veronica Joseph MD Primary Care Provider [phone] Reason for Visit * Reason Comments Sickle Cell Pain Crisis Encounter Details Date Type Department Care Team (Late st Contact Info) Description 06/25/2024 9:50 PM LITIGATION COORDINATOR - 06/26/2024 1:11 AM LITIGATION COORDINATOR Emergency [facility] Emergency Department [address] [place] [phone] Polly Naylor MD [address] [place], [place] [phone] Marissa Matos MD [address] [place] [phone] Sickle cell disease with crisis (H); Chest [...] on file Legal Sex Female 8:25 AM LITIGATION COORDINATOR Gender Identity Not on file Sexual Orientation Not on file documented as of this encounter Last Filed Vital Signs Vital Sign Reading Time Taken Comments Blood Pressure 117/81 06/25/2024 9:46 PM LITIGATION COORDINATOR Pulse 104 06/25/2024 9:46 PM LITIGATION COORDINATOR Temperature 36.8 C (98.2 F) 06/25/2024 9:46 PM LITIGATION COORDINATOR Respiratory Rate 16 06/25/2024 9:46 PM LITIGATION COORDINATOR Oxygen Saturation 98% 06/25/2024 9:46 PM LITIGATION COORDINATOR Inhaled Oxygen Concentration - - Weight 51 kg (112 lb 6.4 oz) 06/25/2024 9:46 PM LITIGATION COORDINATOR Height - - Body Mass Index 21.24 06/24/2024 9:26 AM LITIGATION COORDINATOR documented in this encounter Discharge Instructions * Discharge Instructions* Polly Naylor MD - 06/26/2024 12:04 AM LITIGATION COORDINATOR You are seen in the emergency department [...] that time. Otherwise, please follow-up with your chief lifestyle officer as previously planned tomorrow. GATION COORDINATOR documented in this encounter Medications at Time [...] 05/01/2024 naloxone (NARCAN) 4 MG/0.1ML nasal spray [place] 1 spray (4 mg) into one nostril [...] note were not included. ED Provider Note [facility] EMERGENCY DEPARTMENT ([facility]) 06/25/24 ED PROVIDER NOTE History Chief Complaint [...] she is hoping to get evaluatedby her chief lifestyle officer. She is missed her hematology appointments for [...] ABD: nondistended, soft, nontender, negative Mason, negative Jeremiah point tenderness EXT: Full range of motion. [...] chest pain Rhythm: normal sinus Rate: normal [place]ont: normal Ectopy: none Conduction: normal ST Segments/ T Waves: No ST-T wave changes Q Waves: none Comparison to prior: Unchanged Clinical Impression: normal EKG Results for orders placed or performed during the hospital encounter of 06/25/24 XR Chest 2 Views Status: None Narrative EXAM: XR CHEST 2 VIEWS LOCATION: [facility] DATE: 06/25/2024 INDICATION: Chest pain, SSC. [...] Negative Ketones Urine Negative Negative mg/dL Specific Wing Urine 1.009 1.003 - 1.035 Blood Urine [...] Rate 87 BPM Atrial Rate 87 BPM ND Interval 162 ms QRS Duration 86 ms QT 362 ms QTc 435 ms P [place] 54 degrees R AXIS 84 degrees T [place] 70 degrees Interpretation ECG Sinus rhythm Normal ECG Unconfirmed report - interpretation of this ECG is computer generated - see medical record for final interpretation Confirmed by - EMERGENCY ROOM, PHYSICIAN ([id number]), publishing editor Nivia Willson ([id number]) on 06/25/2024 10:56:42 PM CBC with platelets differential Status: Abnormal Narrative The following orders were created for panel order CBC with platelets differential. Procedure Abnormality Status --------- ------ CBC with platelets and d...[[id number]] Abnormal Final result Please view results for these tests on the individual orders. Medications hydromorphone (DILAUDID) injection 2 mg (2 mg Intravenous $Given 06/25/24 600) sodium chloride 0.9% BOLUS 1,000 mL (1,000 [...] Bilirubin Urine Negative Ketones Urine Negative Specific Wing Urine 1.009 Blood Urine Negative pH Urine [...] Chest pain, unspecified type Polly Naylor MD [facility] EMERGENCY DEPARTMENT 06/25/2024 Polly Naylor MD 06/26/24 0006 GATION COORDINATOR * Juhi Crump, RN - 06/25/2024 9:47 PM CST Pt [...] 5-->(V5) oriented Lester Coma Scale Score 15 GATION COORDINATOR documented in this encounter Plan of Treatment Upcoming Encounters Date Type Department Care Team (Late st Contact Info) Description 07/04/2024 9:[address] [facility] [address] [place] [address] Case Samuel MD [address] [place] [address], [address] [place], [place] [phone] 07/06/2024 8:[address] [facility] [address] [place] [phone] Case Samuel MD [address] [place] [address], [address] [place], [place] [phone] 07/10/2024 11:30 AM CDT Oncology Visit [facility] [address] [place] [address] Case Samuel MD [address] [facility] 484, [address] [place], [place] [phone] documented as of this encounter Goals Goal Patient Goal Type Associated Problems Recent Progress Patient-Stated? Author Pain Management General On track( 025 12:40 PM LITIGATION COORDINATOR) Yes Juhi Benson, SOFIA Note: Goal [...] 2 VIEWS STAT 06/25/2024 10:3 5 PM LITIGATION COORDINATOR EKG 12-LEAD, TRACING ONLY STAT 06/25/2024 10:19 PM LITIGATION COORDINATOR ROUTINE UA WITH MICROSCOPIC REFLEX TO CULTURE STAT 06/25/2024 10:16 PM LITIGATION COORDINATOR CBC WITH PLATELETS AND DIFFERENTIAL STAT 06/25/2024 10:15 PM LITIGATION COORDINATOR TROPONIN T, HIGH SENSITIVITY STAT 06/25/2024 10:15 PM LITIGATION COORDINATOR CBC WITH PLATELETS & DIFFERENTIAL STAT 06/25/2024 10:15 PM LITIGATION COORDINATOR BASIC METABOLIC PANEL STAT 06/25/2024 10:15 PM LITIGATION COORDINATOR documented in this encounter Results * XR Chest 2 Views (06/25/2024 10:35 PM LITIGATION COORDINATOR) Anatomical Region Laterality Modality Chest Digital Radiogra phy 06/25/2024 10:3 5 PM LITIGATION COORDINATOR Impressions 06/25/2024 10:47 PM LITIGATION COORDINATOR IMPRESSION: Bilateral portacatheter with tips in the SVC. Mild low lung volumes. Heart size and pulmonary vascularity stable at the upper limits of normal. Mild patchy right middle lobe infiltrate or atelectasis. Narrative 06/25/2024 10:47 PM LITIGATION COORDINATOR EXAM: XR CHEST 2 VIEWS LOCATION: [facility] DATE: 06/25/2024 INDICATION: Chest pain, SSC. COMPARISON: 06/16/2024. Procedure Note Jayden Correa MD - 06/25/2024 EXAM: XR CHEST 2 VIEWS LOCATION: [facility] DATE: 06/25/2024 INDICATION: Chest pain, SSC. COMPARISON: 06/16/2024. IMPRESSION: Bilateral portacatheter with tips in the SVC. Mild low lungvolumes. Heart size and pulmonary vascularity stable at the upper limitsof normal. Mild patchy right middle lobe infiltrate or atelectasis. Polly Naylor MD IMG DIAGNOSTIC IMAGING ORDERABLE S Final Result * EKG 12-lead, tracing only (06/25/2024 10:19 PM LITIGATION COORDINATOR) Systolic Blood Pressure mmHg RADIOLOGY RESULTS Diastolic Blood Pressure mmHg RADIOLOGY RESULTS Ventricular Rate 87 BPM RAD IOLOGY RESULTS Atrial Rate 87 BPM RADIOLOG Y RESULTS ND Interval 162 ms RADIOLOG Y RESULTS QRS Duration 86 ms RADIOLO GY RESULTS QT 362 ms RADIOLOGY RESULTS QTc 435 ms RADIOLOGY RESULTS P [place] 54 degrees RADIOLOGY RESULTS R AXIS 84 degrees RADIOLOGY RESULTS T [place] 70 degrees RADIOLOGY RESULTS Interpretation ECG Sinus rhythm Normal ECG Unconfirmed report - interpretation of this ECG is computer generated - see medical record for final interpretation Confirmed by - EMERGENCY ROOM, PHYSICIAN ([id number]), publishing editor Nivia Willson ([id number]) on 06/25/2024 10:56:42 PM RADIOLOGY RESULTS 06/25/2024 10:1 9 PM LITIGATION COORDINATOR 06/25/2024 10:56 PM LITIGATION COORDINATOR us Polly Naylor MD ECG ORDERABLES Edited Result - Final RADIOLOGY RESULTS * (ABNORMAL) UA with Microscopic reflex to Culture (06/25/2024 10:16 PM LITIGATION COORDINATOR) Color Urine Light Yellow Colorless, Straw, Light Yellow, Yellow 06/25/2024 10:33 PM LITIGATION COORDINATOR [facility] Appearance Urine Clear Clear 06/26/19 10:33 PM LITIGATION COORDINATOR [facility] Glucose Urine Negative Negative mg/dL 06/25/2024 10:33 PM LITIGATION COORDINATOR [facility] Bilirubin Urine Negative Negative 10:33 PM LITIGATION COORDINATOR [facility] Ketones Urine Negative Negative mg/dL 06/25/2024 10:33 PM LITIGATION COORDINATOR [facility] Specific Wing Urine 1.009 1.003 - 1.035 06/25/2024 10:33 PM LITIGATION COORDINATOR [facility] Blood Urine Negative Negative 06/25/2024 10:33 PM LITIGATION COORDINATOR [facility] pH Urine 7.5(H) 5.0 - 7.0 06/25/2024 10:33 PM LITIGATION COORDINATOR [facility] Protein Albumin Urine Negative Negative mg/dL 06/25/2024 10:33 PM LITIGATION COORDINATOR [facility] Urobilinogen Urine Normal Normal, 2.0 mg/dL 06/25/2024 10:33 PM LITIGATION COORDINATOR [facility] Nitrite Urine Negative Negative 06/25/2024 10:33 PM LITIGATION COORDINATOR [facility] Leukocyte Esterase Urine Negative Negative 06/25/2024 10:33 PM LITIGATION COORDINATOR [facility] RBC Urine 0 <=2 /HPF 06/25/2024 10:33 PM LITIGATION COORDINATOR [facility] WBC Urine 0 <=5 /HPF 06/25/2024 10:33 PM LITIGATION COORDINATOR [facility] Squamous Epithelials Urine 2(H) <=1 /HPF 06/25/2024 10:33 PM LITIGATION COORDINATOR [facility] Urine URINE SPECIMEN OBTAINED BY CLEAN CATCH PROCEDURE / Unknown Non-blood Collection / Unknown 06/25/2024 10:16 PM LITIGATION COORDINATOR 06/25/2024 10:23 PM LITIGATION COORDINATOR Narrative [facility] - 06/25/2024 10:33 PM LITIGATION COORDINATOR Urine Culture not indicated us Polly Naylor MD LAB - URINE ORDERABLES Final Res ult [facility] [address] [facility], [address] [place] [address], [facility] * (ABNORMAL) CBC with platelets and differential (06/25/2024 10:15 PM LITIGATION COORDINATOR) WBC Count 12.5(H) 4.0 - 11.0 10e3/uL 06/25/2024 10:30 PM LITIGATION COORDINATOR [facility] RBC Count 2.32(L) 3.80 - 5.20 10e6/uL 06/25/2024 10:30 PM LITIGATION COORDINATOR [facility] Hemoglobin 7.8(L) 11.7 - 15.7 g/dL 06/25/2024 10:30 PM LITIGATION COORDINATOR [facility] Hematocrit 22.7(L) 35.0 - 47.0 % 06/25/2024 10:30 PM LITIGATION COORDINATOR [facility] MCV 98 78 - 100 fL 06/25/2024 10:30 PM LITIGATION COORDINATOR [facility] MCH 33.6(H) 26.5 - 33.0 pg 06/25/2024 10:30 PM LITIGATION COORDINATOR [facility] MCHC 34.4 31.5 - 36.5 g/dL 06/25/2024 10:30 PM LITIGATION COORDINATOR [facility] RDW 19.2(H) 10.0 - 15.0 % 06/25/2024 10:30 PM LITIGATION COORDINATOR [facility] Platelet Count 451(H) 150 - 450 10e3/uL 06/25/2024 10:30 PM LITIGATION COORDINATOR [facility] % Neutrophils 48 % 06/25/2024 10:30 PM LITIGATION COORDINATOR [facility] % Lymphocytes 39 % 06/25/2024 10:30 PM LITIGATION COORDINATOR [facility] % Monocytes 10 % 06/25/2024 10:30 PM LITIGATION COORDINATOR [facility] % Eosinophils 2 % 06/25/2024 10:30 PM LITIGATION COORDINATOR [facility] % Basophils 1 % 06/25/2024 10:30 PM LITIGATION COORDINATOR [facility] % Immature Granulocytes 1 % 06/25/2024 10:30 PM LITIGATION COORDINATOR [facility] NRBCs per 100 WBC 1(H) <1 /100 025 10:30 PM LITIGATION COORDINATOR [facility] Absolute Neutrophils 6.0 1.6 - 8.3 10e3/uL 06/25/2024 10:30 PM LITIGATION COORDINATOR [facility] Absolute Lymphocytes 4.8 0.8 - 5.3 10e3/uL 06/25/2024 10:30 PM LITIGATION COORDINATOR [facility] Absolute Monocytes 1.2 0.0 - 1.3 10e3/uL 06/25/2024 10:30 PM LITIGATION COORDINATOR [facility] Absolute Eosinophils 0.2 0.0 - 0.7 10e3/uL 06/25/2024 10:30 PM LITIGATION COORDINATOR [facility] Absolute Basophils 0.1 0.0 - 0.2 10e3/uL 06/25/2024 10:30 PM LITIGATION COORDINATOR [facility] Absolute Immature Granulocytes 0.1 <=0.4 10e3/uL 06/25/2024 10:30 PM LITIGATION COORDINATOR [facility] Absolute NRBCs 0.2 10e3/uL 06/25/2024 10:30 PM LITIGATION COORDINATOR [facility] Blood BLOOD SPECIMEN / Unknown IVAD (Port) / Unknown 06/25/2024 10:15 PM LITIGATION COORDINATOR 06/25/2024 10:24 PM LITIGATION COORDINATOR us Polly Naylor MD LAB - BLOOD ORDERABLES Final Res ult [facility] [address] [facility], [address] [phone] * Troponin T, High Sensitivity (06/25/2024 10:15 PM LITIGATION COORDINATOR) Troponin T, High Sensitivity <6 <=14 ng/L 06/25/2024 10:51 PM LITIGATION COORDINATOR [facility] Comment: Either a High [...] IVAD (Port) / Unknown 06/25/2024 10:15 PM LITIGATION COORDINATOR 06/25/2024 10:24 PM LITIGATION COORDINATOR us Polly Naylor MD LAB - BLOOD ORDERABLES Final Res ult [facility] [address] [facility], [address] [place] [address], [facility] * (ABNORMAL) Basic metabolic panel (06/25/2024 10:15 PM LITIGATION COORDINATOR) Sodium 137 135 - 145 mmol/L 06/25/2024 10:51 PM LITIGATION COORDINATOR [facility] Potassium 3.7 3.4 - 5.3 mmol/L 06/25/2024 10:51 PM LITIGATION COORDINATOR [facility] Chloride 107 98 - 107 mmol/L 06/25/2024 10:51 PM LITIGATION COORDINATOR [facility] Carbon Dioxide (CO2) 22 22 - 29 mmol/L 06/25/2024 10:51 PM LITIGATION COORDINATOR [facility] Anion Gap 8 7 - 15 mmol/L 06/25/2024 10:51 PM LITIGATION COORDINATOR [facility] Urea Nitrogen 6.7 6.0 - 20.0 mg/dL 06/25/2024 10:51 PM LITIGATION COORDINATOR [facility] Creatinine 0.69 0.51 - 0.95 mg/dL 06/25/2024 10:51 PM LITIGATION COORDINATOR [facility] GFR Estimate >90 >60 mL/min/1.7 3m2 06/25/2024 10:51 PM LITIGATION COORDINATOR [facility] Comment:eGFR calculated us2020 CKD-EPI equation. Calcium 8.7(L) 8.8 - 10.4 mg/dL 06/25/2024 10:51 PM LITIGATION COORDINATOR [facility] Glucose 87 70 - 99 mg/dL 06/25/2024 10:51 PM LITIGATION COORDINATOR [facility] Blood BLOOD SPECIMEN / Unknown IVAD (Port) / Unknown 06/25/2024 10:15 PM LITIGATION COORDINATOR 06/25/2024 10:24 PM LITIGATION COORDINATOR us Polly Naylor MD LAB - BLOOD ORDERABLES Final Res ult [facility] [address] [facility], [address] [place] [address], [facility] documented in this encounter Visit Diagnoses Diagnosis [...] For 1 dose $Given 06/25/2024 10:39 PM LITIGATION COORDINATOR 25 mg heparin lock flush 100 unit/mL injection 5-10 mL 5-10 mL, Intracatheter, EVERY 28 DAYS, First dose on 06/26/24 at 0055, To de-access each port in dual implanted port. Flush with 10 mL NS sodium chloride 0.9% flush followed by 5 mL heparin (100 units/mL) at discharge and at least every 28 days. MAX: 5 mL per each port lumen $Given 06/26/2024 12:55 AM LITIGATION COORDINATOR 5 mLs hydromorphone (DILAUDID) injection 2 mg 2 mg, Intravenous, EVERY 1 HOUR PRN, severe pain, moderate pain, Starting on 06/25/24 at 2151, For 3 doses $Given 06/26/2024 12:37 AM LITIGATION COORDINATOR 2 mg $Given 06/25/2024 11:42 PM LITIGATION COORDINATOR 2 mg $Given 06/25/2024 10:36 PM LITIGATION COORDINATOR 2 mg ondansetron (ZOFRAN) injection 8 mg 8 mg, Intravenous, ONCE, Administer over 2-5 Minutes, On 06/25/24 at 2155, For 1 dose $Given 06/25/2024 10:38 PM LITIGATION COORDINATOR 8 mg sodium chloride 0.9% BOLUS 1,000 mL Intravenous, 1,000 mL, ONCE, at 500 mL/hr, Administer over 2 Hours, On Wed06/25/24 at 2205, For 1 dose $New Bag 06/25/2024 10:18 PM LITIGATION COORDINATOR 1,000 mLs 500 mL/hr documented in this encounter Active and Recently Administered Medications Times are shown in LITIGATION COORDINATOR. Scheduled Medication Order 06/24/2024 06/25/2024 06/26/2024 diphenhydrAMINE (BENADRYL) capsule 25 mg (COMPLETED) 25 mg, Oral, ONCE, On 06/25/24 at 2155, For 1 dose 2239 ($Given - Provider: Mely Barbour RN) heparin lock flush 100 unit/mL injection 5-10 mL 5-10 mL, Intracatheter, EVERY 28 DAYS, First dose on 06/26/24 at 0055, To de-access each port in [...] On Wed06/25/24 at 2205, For 1 dose 2218 ($New Bag - Provider: Mely Barbour RN) 0033 (Stopped - Provider: Mely Barbour RN) PRN Medication Order 06/24/2024 06/25/2024 06/26/2024 hydromorphone (DILAUDID) injection 2 mg (COMPLETED) 2 mg, Intravenous, EVERY 1 HOUR PRN, severe pain, moderate pain, Starting on Wed06/25/24 at 2151, For 3 doses 2236 ($Given - Provider: Mely Barbour RN)2342 ($Given - Provider: Mely Barbour RN) 0037 ($Given - Provider: Mely Barbour RN) documented in this encounter Care Teams Is Manager Relationship Specialty Start Date End Date Veronica Joseph MD [address] [place] [address] PCP - General Family Medicine 06/18/24 Mor Ramsey Medical Student 04/03/24 Case Samuel MD [address] [place] [address] 484, [address] [place] [address] Assigned Pediatric Specialist Provider 05/18/24 Juhi Benson, RN Specialty Radio Announcer Hematology & Oncology 05/29/24 documented as of this encounter
--- OUTSIDE RECORDS SUMMARY | 2024-07-03 20:33 | XMS_ITS | Encounter Summary ---
Author Organization [facility] Address [address] [place] [address]. [place] [address] Care Team Providers Care Dental Sales Representative Name Role Phone RoxyElvirac Unavailable Unavailable Case Samuel MD Unavailable [phone] Juhi Benson RN Unavailable Unavailable Veronica Joseph MD Primary Care Provider [phone] Reason for Visit * Reason Comments Sickle Cell Pain Crisis * Auth/Cert Specialty Diagnoses / Procedures Referred By Shahid pendleton Referred To Contact EMERGENCY MEDICINE Diagnoses Acute pulmonary embolism without acute cor pulmonale, unspecified pulmonary embolism type (H) Sickle cell pain crisis (H) [facility] Emergency Department [address] [place] [address] Phone: tel: Referral ID Status Reason Start Date Expiration Date Visits Re quested Visits Authorized [id number] 1 1 Encounter Details Date Type Department Care Team (Latest Contact Info) Description 06/26/2024 1:51 PM CANCER GENETIC COUNSELOR - 06/29/2024 11:11 AM [facility] Hospital Encounter [facility] Emergency Department [address] [place] [phone] Jayden Adhikari MD [address] [place] [address] Esdras Markham MD [address] [place] [address] Alex Gillespie MD [address] [place] [id number] Acute pulmonary embolism without acute cor [...] on file Legal Sex Female 8:25 AM CANCER GENETIC COUNSELOR Gender Identity Not on file Sexual Orientation Not on file documented as of this encounter Last Filed Vital Signs Vital Sign Reading Time Taken Comments Blood Pressure 97/51 06/29/2024 9:46 AM CANCER GENETIC COUNSELOR Pulse 62 06/29/2024 9:46 AM CANCER GENETIC COUNSELOR Temperature 36.8 C (98.2 F) 06/29/2024 9:46 AM CANCER GENETIC COUNSELOR Respiratory Rate 18 06/29/2024 9:46 AM CANCER GENETIC COUNSELOR Oxygen Saturation 95% 06/29/2024 9:46 AM CANCER GENETIC COUNSELOR Inhaled Oxygen Concentration - - Weight - - Height - - Body Mass Index - - documented in this encounter Discharge Summaries * Rl Elias MD - 06/29/2024 10:11 AM CST [facility] Discharge Summary - [...] negative. Hemoglobin stable through admission. - Continue LEASING AGENT hydroxyurea 1000mg BID - Continue LEASING AGENT folic acid 1mg daily - Continue topical [...] Hematology (whichever comes first) #Anxiety - Continue LEASING AGENT fluoxetine 10 mg daily Consultations This Hospital Stay PHARMACY IP CONSULT HEMATOLOGY ADULT IP CONSULT CARE MANAGEMENT / SOCIAL WORK IP CONSULT PHARMACY LIAISON FOR MEDICATION COVERAGE CONSULT PHARMACY LIAISON FOR MEDICATION COVERAGE CONSULT SOCIAL WORK IP CONSULT PHARMACY LIAISON FOR MEDICATION COVERAGE CONSULT Code Status Full Code The patient was discussed with Dr. Gillespie. MD Ricardo LANGLEY [address] [place] [address] EMERGENCY DEPARTMENT [address] [facility] [id number] Physical Exam Vital Signs: Temp: 98.2 ??F [...] None. HISTORY: Evaluate for any DVTs. TECHNIQUE: [place]-scale evaluation with compression, spectral flow and color [...] MD Echocardiogram Complete Value LVEF 55-60% Narrative [id number]^BRITTANEY^JERMAINE [facility] [address] [place] [address] Name: LEW HERNÁNDEZ : 1995 Study Date: 06/27/2024 01:58 PM Age: 29 yrs Gender: Female Patient Location: [facility] Reason For Study: Pulmonary Emboli Ordering Physician: [...] (H) naloxone (NARCAN) 4 MG/0.1ML nasal spray [place] 1 spray (4 mg) into one [...] Alex Gillespie MD at 06/29/2024 12:30 PM CANCER GENETIC COUNSELOR ER GENETIC COUNSELOR ER GENETIC COUNSELOR Associated attestation - Alex Gillespie MD - 06/29/2024 12:30 PM CANCER GENETIC COUNSELOR Physician Attestation I saw and evaluated this [...] 05/01/2024 naloxone (NARCAN) 4 MG/0.1ML nasal spray [place] 1 spray (4 mg) into one [...] with POC. Notify primary team with changes. ER GENETIC COUNSELOR * Rl Elias MD - 06/28/2024 10:47 AM CST [facility] Progress Note - Medicine Service, [facility] TEAM 1 Date of Admission: 06/26/2024 Assessment [...] coverage, has 30 day free trial through [facility] #Sickle cell acute pain crisis #Sickle [...] senna PRN for supportive measures - Continue LEASING AGENT hydroxyurea 1000mg BID - Continue LEASING AGENT folic acid 1mg daily - Monitoring CBC [...] melatonin 3 mg PRN #Anxiety - Continue LEASING AGENT fluoxetine 10 mg daily - Benadryl PRN [...] . RL ELIAS MD Medicine Service, [facility] TEAM 1 [facility] Securely message with Ofer[employer] (more info) Text page via [facility] Paging/Directory See signed in provider for [...] Echocardiogram Complete Result Value LVEF 55-60% Narrative [id number]^BRITTANEY^JERMAINE [facility] [address] [place] [address] Name: LEW HERNÁNDEZ : 1995 Study Date: 06/27/2024 01:58 PM Age: 29 yrs Gender: Female Patient Location: [facility] Reason For Study: Pulmonary Emboli Ordering Physician: [...] Alex Gillespie MD at 06/28/2024 12:23 PM CANCER GENETIC COUNSELOR ER GENETIC COUNSELOR ER GENETIC COUNSELOR Associated attestation - Alex Gillespie MD - 06/28/2024 12:23 PM CANCER GENETIC COUNSELOR Physician Attestation I saw this patient with [...] status and report changes to treatment team. ER GENETIC COUNSELOR * Rl Elias MD - 06/27/2024 11:41 AM CST [facility] Progress Note - Medicine Service, [facility] TEAM 1 Date of Admission: 06/26/2024 Assessment [...] senna PRN for supportive measures - Continue LEASING AGENT hydroxyurea 1000mg BID - Continue LEASING AGENT folic acid 1mg daily - Monitoring CBC w/diff, LDH, reticulocyte count, and LDH daily - Type & screened - Continue topical diclofenac, lidocaine, icy hot PRN #Leukocytosis #Insomnia - continue melatonin 3 mg PRN #Anxiety - Continue LEASING AGENT fluoxetine 10 mg daily - Benadryl PRN [...] . RL ELIAS MD Medicine Service, [facility] TEAM [address] [place] [address] Securely message with [employer] (more info) Text page via [facility] Paging/Directory See signed in provider for [...] Alex Gillespie MD at 06/27/2024 2:25 PM CANCER GENETIC COUNSELOR ER GENETIC COUNSELOR ER GENETIC COUNSELOR Associated attestation - Alex Gillespie MD - 06/27/2024 2:25 PM CANCER GENETIC COUNSELOR Physician Attestation I saw this patient with [...] Quispe MD - 06/26/2024 5:21 PM CST [facility] History and Physical - Medicine Service, [facility] TEAM Date of Admission: 06/26/2024 Assessment & [...] 10 mg qdaily at home. - Continue LEASING AGENT fluoxetine - Ordered hydroxyzine 25-50 mg q6h PRN - Advised patient that there are resources available if she would like to talk more about her anxiety (Behavioral Health, Staff Development Manager, etc). #Insomnia - Ordered melatonin 3 mg [...] Markham . Jermaine Quispe MD Medicine Service, [facility] Securely message with [employer] info) Text page via [facility] Paging/Directory See signed in provider for 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, [facility]cath [facility] Functional asplenia Gallstones Hb-SS disease without [...] nasal spray Self, Other No No Sig: [place] 1 spray (4 mg) into one [...] Narrative EXAM: XR CHEST 2 VIEWS LOCATION: [facility] DATE: 06/25/2024 INDICATION: Chest pain, SSC. [...] Esdras Markham MD at 06/26/2024 11:25 PM CANCER GENETIC COUNSELOR ER GENETIC COUNSELOR ER GENETIC COUNSELOR Associated attestation - Esdras Markham MD - 06/26/2024 11:25 PM CANCER GENETIC COUNSELOR Physician Attestation I saw this patient with [...] Communication Assessment Patient's communication style: spoken language (Cape Verdean or Bilingual) Cognitive Cognitive/Neuro/Behavioral: WDL Living Environment: [...] Dependency Status:not discussed Values/Beliefs: Spiritual, Cultural Beliefs, Quaker Practices, Values that affect care: no Discussed [...] Care management signing off. Sandy Bertrand RN, [facility] Inpatient Care Management - FLOAT ER GENETIC COUNSELOR * Bernadette Boggs - 06/29/2024 8:55 AM CSTAssociated Order(s): PHARMACY LIAISON FOR MEDICATION COVERAGE CONSULT; PHARMACY LIAISON FOR MEDICATION COVERAGE CONSULT Summary: Rx coverage for Eliquis Discharge Pharmacy Test Claim Patient's commercial BCBS [place] plan covers Eliquis with an expected monthly copay of $0. Test Claim Copay Eliquis 0.00 Bernadette Boggs [facility] Pharmacy Liaison (A - L) Available on [employer] & Ofer[employer] Disclaimer: Pharmacy test claims are extimates and may not reflect final costs. Suggested alternatives aim to be cost-effective but may not be therapeutically equivalent as this consult is informational and does not constitute medical advice. Clinical decisions should be made by qualified healthcare providers. ER GENETIC COUNSELOR ER GENETIC COUNSELOR ER GENETIC COUNSELOR ER GENETIC COUNSELOR * Bernadette Boggs - 06/27/2024 3:13 PM CSTAssociated Order(s): PHARMACY LIAISON FOR MEDICATION COVERAGE CONSULT Summary: Rx Coverage for Xarelto Discharge Pharmacy Test Claim Patient's commercial [place] plan covers xarelto with an expected monthly copay of $0. Test Claim Copay Xarelto 0.00 Bernadette Bogsg [facility] Pharmacy Liaison (A - L) Available on Se[employer] Disclaimer: Pharmacy test claims are extimates and may not reflect final costs. Suggested alternatives aim to be cost-effective but may not be therapeutically equivalent as this consult is informational and does not constitute medical advice. Clinical decisions should be made by qualified healthcare providers. ER GENETIC COUNSELOR ER GENETIC COUNSELOR * Carmen Aviles PA-C - 06/27/2024 9:03 AM CSTAssociated Order(s): HEMATOLOGY ADULT IP CONSULT Images from the original note were not included. Hematology Consult Note Date of Service: 06/27/2024 Patient: Lew Hernández Admission Date: 06/26/2024 Hospital Day # Hospital Day: 2 Primary Outpatient Talent Coordinator: Dr. Evy Samuel Reason for Consult: pt [...] documentation time. 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 Recently moved to [place] from [place], [place]. She is 1 of 9 [...] Social Connections: Socially Integrated (03/28/2024) [facility] Do you often feel [...] 11 naloxone (NARCAN) 4 MG/0.1ML nasal spray [place] 1 spray (4 mg) into one [...] Octavio Rivera MD at 06/27/2024 4:18 PM CANCER GENETIC COUNSELOR ER GENETIC COUNSELOR ER GENETIC COUNSELOR Associated attestation - Octavio Rivera MD - 06/27/2024 4:18 PM CANCER GENETIC COUNSELOR Physician Attestation I saw and evaluated Lew Hernández as part of a shared MANAGER PUBLIC/PA visit. I personally reviewed the vital signs, [...] indwelling. We will coordinate follow-up with outpatient enrollment management vice president. Counseling and/or coordination of care performed by me: Rounds 45 MINUTES SPENT BY ME on the date of service doing chart review, history, exam, documentation & further activities per the note. Octavio Rivera MD Date of Service (when I saw the patient): 06/27/24 This note was completed in part using dictation via the Erydel voice recognition software. Some word and grammatical [...] WDL Cognitive/Neuro/Behavioral WDL Cognitive/Neuro/Behavioral WDL WDL ER GENETIC COUNSELOR * Tammi Dave RN - 06/26/2024 1:51 PM CST [facility] Expected date: Expected time: Means of arrival: Comments: HWY appropriate ER GENETIC COUNSELOR * Jayden Adhikari MD - 06/26/2024 1:45 PM CST Images from the original note were not included. [facility] EMERGENCY DEPARTMENT ([facility]) 06/26/24 ED PROVIDER NOTE History Chief Complaint 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, had [facility] in [facility] Functional asplenia Gallstones Hb-SS disease without [...] Antibody Screen Negative Negative SPECIMEN EXPIRATION DATE [id number] CBC with platelets differential Status: Abnormal Narrative The following orders were created for panel order CBC with platelets differential. Procedure Abnormality Status --------- ------ CBC with platelets and d...[[id number]] Abnormal Final result Please view results for these tests on the individual orders. ABO/Rh type and screen Status: None Narrative The following orders were created for panel order ABO/Rh type and screen. Procedure Abnormality Status --------- ------ Adult Type and Screen[[id number]] Final result Please view results for these tests on the individual orders. Results for orders placed or performed during the hospital encounter of 06/25/24 XR Chest 2 Views Status: None Narrative EXAM: XR CHEST 2 VIEWS LOCATION: [facility] DATE: 06/25/2024 INDICATION: Chest pain, SSC. [...] Negative Ketones Urine Negative Negative mg/dL Specific [place] Urine 1.009 1.003 - 1.035 Blood Urine [...] Rate 87 BPM Atrial Rate 87 BPM [place] Interval 162 ms QRS Duration 86 ms QT 362 ms QTc 435 ms P [place] 54 degrees R AXIS 84 degrees T [place] 70 degrees Interpretation ECG Sinus rhythm Normal ECG Unconfirmed report - interpretation of this ECG is computer generated - see medical record for final interpretation Confirmed by - EMERGENCY ROOM, PHYSICIAN ([id number]), visual effects editor Nivia Willson ([id number]) on 06/25/2024 10:56:42 PM CBC with platelets differential Status: Abnormal Narrative The following orders were created for panel order CBC with platelets differential. Procedure Abnormality Status --------- ------ CBC with platelets and d...[[id number]] Abnormal Final result Please view results for [...] 55 mL (55 mLs Intravenous $Given 06/26/24 0543) sodium chloride (PF) 0.9% PF flush 82 mL (82 mLs Intravenous $Given 06/26/24 9503) heparin ANTICOAGULANT Loading dose for HIGH INTENSITY [...] POS Antibody Screen Negative SPECIMEN EXPIRATION DATE [id number] BLOOD CULTURE BLOOD CULTURE ABO/RH TYPE AND [...] type (H) Sickle cell pain crisis (H) [facility] EMERGENCY DEPARTMENT 06/26/2024 Jayden Adhikari MD 06/26/24 1704 ER GENETIC COUNSELOR documented in this encounter Miscellaneous Notes * Plan of Care - Sandy Bertrand RN - 06/29/2024 10:54 AM CST Goal Outcome Evaluation: Plan of Care Reviewed With: patient Overall Patient Progress: improvingOverall Patient Progress: improving Outcome Evaluation: Discharge home today Sandy Bertrand RN, [facility] Inpatient Care Management - FLOAT ER GENETIC COUNSELOR * Plan of Care - Maki Schultz [...] Pt adequate for discharge. Verbalized all instructions. ER GENETIC COUNSELOR * Plan of Care - Lavinia Cruz RN - 06/29/2024 7:05 AM CST RN [phone] Vitals: Afebrile. VSS on RA Neuro: A&Ox4 [...] changes in patient status. Lavinia Cruz RN ER GENETIC COUNSELOR * Plan of Care - Sathish Goetz [...] (36.8 ??C) (Oral) Resp 20 SpO2 98% ER GENETIC COUNSELOR * Plan of Care - Sathish Goetz [...] (36.8 ??C) (Oral) Resp 20 SpO2 98% ER GENETIC COUNSELOR * Medication Scribe - Admission Medication History - Yennifer Edwards - 06/27/2024 4:32 AM CST Medication Scribe Admission Medication History Admission medication history is complete. The information provided in this note is only as accurateas the sources available at the time of the update. Information Source(s): Patient and CareEverywhere/SureScripts via in-person Pertinent Information: per pt+CE, pt reported taking medications on LEASING AGENT medication list as directed Changes made to LEASING AGENT medication list: Added: None Deleted: None Changed: None Allergies reviewed with patient and updates made in EHR: yes Medication History Completed By: Yennifer Edwards 06/27/2024 4:32 AM LEASING AGENT Med List Medication Sig Last Dose/Taking diphenhydrAMINE [...] 06/26/2024 naloxone (NARCAN) 4 MG/0.1ML nasal spray [place] 1 spray (4 mg) into one nostril alternating nostrilsas needed for opioid reversal (for opiate overdose if not breathing and unconscious. have your family member watch video on how to use/read information sheet). every 2-3 minutes until assistance arrives Taking As Needed ER GENETIC COUNSELOR * Plan of Care - Gordo Sykes [...] Progress: no changeOverall Patient Progress: no change ER GENETIC COUNSELOR * Provider Notification - Gordo Sykes, RN - 06/27/2024 3:35 AM CANCER GENETIC COUNSELOR Jovan, I've messaged your creative services intern a couple of times starting at ([phone]) [...] Or what are her diet orders? Thanks. ER GENETIC COUNSELOR * Provider Notification - Gordo Sykes RN - 06/27/2024 1:27 AM CANCER GENETIC COUNSELOR Also, pt has orders for NPO. Pt stated that she thinks that this has passed and the order hasn't been updated. Previous nurse told me that pt ordered and ate dinner (before my shift). Is pt NPO? Or what are her diet orders? Thanks. ER GENETIC COUNSELOR * Provider Notification - Gordo Sykes RN - 06/27/2024 1:13 AM CANCER GENETIC COUNSELOR Hello, pt refusing a PIV. Pt only has L port that is currently running a heparin drip. Pt has orders for continuous LR at 100mL/hour, I am unable to run this at this time due to limited access. Is fedey to hold off on this? Or what would you advise? Thanks. ER GENETIC COUNSELOR ER GENETIC COUNSELOR * Plan of Care - Phuong Ng RN - 06/26/2024 11:46 PM CST Shift: [phone] VS: Blood pressure 103/68, pulse 79, temperature [...] No significant changes this shift, continue POC. ER GENETIC COUNSELOR documented in this encounter Plan of Treatment Upcoming Encounters Date Type Department Care Team (Late st Contact Info) Description 07/04/2024 9:00 AM CDT Lab [facility] [address] [address] Case Samuel MD [address] [place] [address], [address] [id number] 07/06/2024 8:00 AM CDT Appointment [facility] Advanced Treatment [address] [address] Case Samuel MD [address] [place] [address], [address] [place] [phone] 07/10/2024 11:30 AM CDT Oncology Visit [facility] [address] [address] Case Samuel MD [address] [place], [place] [address], RO[address] [phone] documented as of this encounter Goals Goal Patient Goal Type Associated Problems Recent Progress Patient-Stated? Author Pain Management General On track( 025 12:40 PM CANCER GENETIC COUNSELOR) Yes Juhi Benson RN Note: Goal Statement: [...] Comments EXTRA TUBE STAT 06/29/2024 6:05 AM CANCER GENETIC COUNSELOR EXTRA PURPLE TOP TUBE STAT 06/29/2024 6:05 AM CANCER GENETIC COUNSELOR CBC WITH PLATELETS AND DIFFERENTIAL STAT 06/29/2024 6:05 AM CANCER GENETIC COUNSELOR CBC WITH PLATELETS & DIFFERENTIAL STAT 06/29/2024 6:05 AM CANCER GENETIC COUNSELOR COMPREHENSIVE METABOLIC PANEL STAT 06/29/2024 6:04 AM CANCER GENETIC COUNSELOR RBC AND PLATELET MORPHOLOGY STAT 06/28/2024 6:06 AM CANCER GENETIC COUNSELOR CBC WITH PLATELETS AND DIFFERENTIAL STAT 06/28/2024 6:06 AM CANCER GENETIC COUNSELOR LACTATE DEHYDROGENASE STAT 06/28/2024 6:06 AM CANCER GENETIC COUNSELOR CBC WITH PLATELETS & DIFFERENTIAL STAT 06/28/2024 6:06 AM CANCER GENETIC COUNSELOR RETICULOCYTE COUNT STAT 06/28/2024 6: 06 AM CANCER GENETIC COUNSELOR COMPREHENSIVE METABOLIC PANEL STAT 06/28/2024 6:06 AM CANCER GENETIC COUNSELOR BILIRUBIN DIRECT Add-On 06/28/2024 6:06 AM CANCER GENETIC COUNSELOR HEPARIN UNFRACTIONATED ANTI XA LEVEL STAT 06/28/2024 1:57 AM CANCER GENETIC COUNSELOR HEPARIN UNFRACTIONATED ANTI XA LEVEL STAT 06/27/2024 7:14 PM CANCER GENETIC COUNSELOR EXTRA TUBE STAT 06/27/2024 5:55 PM CANCER GENETIC COUNSELOR EXTRA GREEN TOP (LITHIUM HEPARIN) TUBE STAT 06/27/2024 5:55 PM CANCER GENETIC COUNSELOR ECHO COMPLETE Routine 06/27/2024 2:33 PM CANCER GENETIC COUNSELOR HEPARIN UNFRACTIONATED ANTI XA LEVEL STAT 06/27/2024 12:39 PM CANCER GENETIC COUNSELOR US LOWER EXTREMITY VENOUS DUPLEX BILATERAL STAT 06/27/2024 11:21 AM CANCER GENETIC COUNSELOR INFLUENZA A/B, RSV AND SARS-COV2 PCR STAT 06/27/2024 8:43 AM CANCER GENETIC COUNSELOR ROUTINE UA WITH MICROSCOPIC REFLEX TO CULTURE STAT 06/27/2024 8:12 AM CANCER GENETIC COUNSELOR RBC AND PLATELET MORPHOLOGY STAT 06/27/2024 5:57 AM CANCER GENETIC COUNSELOR CBC WITH PLATELETS AND DIFFERENTIAL Add-On 06/27/2024 5:57 AM CANCER GENETIC COUNSELOR TYPE AND SCREEN, ADULT Routine 5:57 AM CANCER GENETIC COUNSELOR CBC WITH PLATELETS & DIFFERENTIAL Add-On 06/27/2024 5:57 AM CANCER GENETIC COUNSELOR RETICULOCYTE COUNT Add-On 06/27/2024 5: 57 AM CANCER GENETIC COUNSELOR HEPATIC FUNCTION PANEL Add-On 5:57 AM CANCER GENETIC COUNSELOR ABO/RH TYPE AND SCREEN Add-On 5:57 AM CANCER GENETIC COUNSELOR BASIC METABOLIC PANEL STAT 06/27/2024 5:57 AM CANCER GENETIC COUNSELOR CBC WITH PLATELETS STAT 06/27/2024 5: 57 AM CANCER GENETIC COUNSELOR HEPARIN UNFRACTIONATED ANTI XA LEVEL STAT 06/27/2024 5:56 AM CANCER GENETIC COUNSELOR HEPARIN UNFRACTIONATED ANTI XA LEVEL STAT 06/26/2024 10:46 PM CANCER GENETIC COUNSELOR ERYTHROCYTE SEDIMENTATION RATE AUTO STAT 06/26/2024 6:46 PM CANCER GENETIC COUNSELOR BLOOD CULTURE STAT 06/26/2024 6:46 PM CANCER GENETIC COUNSELOR BLOOD CULTURE STAT 06/26/2024 6:46 PM CANCER GENETIC COUNSELOR EKG 12-LEAD, TRACING ONLY STAT 06/26/2024 5:19 [address]IC [address] CHEST PULMONARY EMBOLISM W CONTRAST STAT 06/26/2024 4:15 PM CANCER GENETIC COUNSELOR XR CHEST 2 VIEWS STAT 06/26/2024 3:13 PM CANCER GENETIC COUNSELOR CBC WITH PLATELETS AND DIFFERENTIAL STAT 06/26/2024 2:42 PM CANCER GENETIC COUNSELOR TYPE AND SCREEN, ADULT STAT 2:42 PM CANCER GENETIC COUNSELOR TROPONIN T, HIGH SENSITIVITY STAT 06/26/2024 2:42 PM CANCER GENETIC COUNSELOR PROCALCITONIN STAT 06/26/2024 2:42 PM CANCER GENETIC COUNSELOR CBC WITH PLATELETS & DIFFERENTIAL STAT 06/26/2024 2:42 PM CANCER GENETIC COUNSELOR HCG QUALITATIVE STAT 06/26/2024 2:42 PM CANCER GENETIC COUNSELOR D DIMER QUANTITATIVE STAT 06/26/2024 2:42 PM CANCER GENETIC COUNSELOR CRP INFLAMMATION Add-On 06/26/2024 2:42 PM CANCER GENETIC COUNSELOR ABO/RH TYPE AND SCREEN STAT 2:42 PM CANCER GENETIC COUNSELOR BASIC METABOLIC PANEL STAT 06/26/2024 2:42 PM CANCER GENETIC COUNSELOR documented in this encounter Results * Extra Purple Top Tube (06/29/2024 6:05 AM CANCER GENETIC COUNSELOR) Hold Specimen JIC 06/29/2024 7:31 AM CANCER GENETIC COUNSELOR [facility] Blood ARTERIAL LINE / Unknown IVAD (Port) / Unknown 06/29/2024 6:05 AM CANCER GENETIC COUNSELOR 06/29/2024 6:19 AM CANCER GENETIC COUNSELOR us Alex Gillespie MD LAB - BLOOD ORDERABLES Final Re sult [facility] [place] [facility] [address] [facility], Room [address] [place] [address] * (ABNORMAL) CBC with platelets and differential (06/29/2024 6:05 AM CANCER GENETIC COUNSELOR) WBC Count 12.3(H) 4.0 - 11.0 10e3/uL 06/29/2024 6:30 AM CANCER GENETIC COUNSELOR [facility] RBC Count 2.60(L) 3.80 - 5.20 10e6/uL 06/29/2024 6:30 AM CANCER GENETIC COUNSELOR [facility] Hemoglobin 8.5(L) 11.7 - 15.7 g/dL 06/29/2024 6:30 AM CANCER GENETIC COUNSELOR [facility] Hematocrit 25.5(L) 35.0 - 47.0 % 06/29/2024 6:30 AM CANCER GENETIC COUNSELOR [facility] MCV 98 78 - 100 fL 06/29/2024 6:30 AM CANCER GENETIC COUNSELOR [facility] MCH 32.7 26.5 - 33.0 pg 06/29/2024 6:30 AM CANCER GENETIC COUNSELOR [facility] MCHC 33.3 31.5 - 36.5 g/dL 06/29/2024 6:30 AM CANCER GENETIC COUNSELOR [facility] RDW 17.9(H) 10.0 - 15.0 % 06/29/2024 6:30 AM CANCER GENETIC COUNSELOR [facility] Platelet Count 438 150 - 450 10e3/uL 06/29/2024 6:30 AM CANCER GENETIC COUNSELOR [facility] % Neutrophils 62 % 06/29/2024 6:30 AM CANCER GENETIC COUNSELOR [facility] % Lymphocytes 25 % 06/29/2024 6:30 AM CANCER GENETIC COUNSELOR [facility] % Monocytes 9 % 06/29/2024 6:30 AM CANCER GENETIC COUNSELOR [facility] % Eosinophils 3 % 06/29/2024 6:30 AM CANCER GENETIC COUNSELOR [facility] % Basophils 1 % 06/29/2024 6:30 AM CANCER GENETIC COUNSELOR [facility] % Immature Granulocytes 0 % 06/29/2024 6:30 AM CANCER GENETIC COUNSELOR [facility] NRBCs per 100 WBC 1(H) <1 /100 025 6:30 AM CANCER GENETIC COUNSELOR [facility] Absolute Neutrophils 7.6 1.6 - 8.3 10e3/uL 06/29/2024 6:30 AM CANCER GENETIC COUNSELOR [facility] Absolute Lymphocytes 3.1 0.8 - 5.3 10e3/uL 06/29/2024 6:30 AM CANCER GENETIC COUNSELOR [facility] Absolute Monocytes 1.1 0.0 - 1.3 10e3/uL 06/29/2024 6:30 AM CANCER GENETIC COUNSELOR [facility] Absolute Eosinophils 0.4 0.0 - 0.7 10e3/uL 06/29/2024 6:30 AM CANCER GENETIC COUNSELOR [facility] Absolute Basophils 0.1 0.0 - 0.2 10e3/uL 06/29/2024 6:30 AM CANCER GENETIC COUNSELOR [facility] Absolute Immature Granulocytes 0.0 <=0.4 10e3/uL 06/29/2024 6:30 AM CANCER GENETIC COUNSELOR [facility] Absolute NRBCs 0.1 10e3/uL 06/29/2024 6:30 AM CANCER GENETIC COUNSELOR [facility] Blood ARTERIAL LINE / Unknown IVAD (Port) / Unknown 06/29/2024 6:05 AM CANCER GENETIC COUNSELOR 06/29/2024 6:17 AM CANCER GENETIC COUNSELOR us Rl Elias MD LAB - BLOOD ORDER SYD Final Result [facility] [place] [facility] [address] [facility], [address] [place] [address], [facility] * (ABNORMAL) Comprehensive metabolic panel (06/29/2024 6:04 AM CANCER GENETIC COUNSELOR) Sodium 132(L) 135 - 145 mmol/L 06/29/2024 6:51 AM CANCER GENETIC COUNSELOR [facility] Potassium 4.6 3.4 - 5.3 mmol/L 06/29/2024 6:51 AM CANCER GENETIC COUNSELOR [facility] Carbon Dioxide (CO2) 21(L) 22 - 29 mmol/L 06/29/2024 6:51 AM CANCER GENETIC COUNSELOR [facility] Anion Gap 9 7 - 15 mmol/L 06/29/2024 6:51 AM CANCER GENETIC COUNSELOR [facility] Urea Nitrogen 14.3 6.0 - 20.0 mg/dL 06/29/2024 6:51 AM CANCER GENETIC COUNSELOR [facility] Creatinine 0.70 0.51 - 0.95 mg/dL 06/29/2024 6:51 AM CANCER GENETIC COUNSELOR [facility] GFR Estimate >90 >60 mL/min/1.7 3m2 06/29/2024 6:51 AM CANCER GENETIC COUNSELOR [facility] Comment:eGFR calculated 2020 CKD-EPI equation. Calcium 8.9 8.8 - 10.4 mg/dL 06/29/2024 6:51 AM CANCER GENETIC COUNSELOR [facility] Chloride 102 98 - 107 mmol/L 06/29/2024 6:51 AM CANCER GENETIC COUNSELOR [facility] Glucose 98 70 - 99 mg/dL 06/29/2024 6:51 AM CANCER GENETIC COUNSELOR [facility] Alkaline Phosphatase 106 40 - 150 U/L 06/29/2024 6:51 AM CANCER GENETIC COUNSELOR [facility] AST 49(H) 0 - 45 U/L 06/29/2024 6:51 AM CANCER GENETIC COUNSELOR [facility] ALT 44 0 - 50 U/L 06/29/2024 6:51 AM CANCER GENETIC COUNSELOR [facility] Protein Total 7.5 6.4 - 8.3 g/dL 06/29/2024 6:51 AM CANCER GENETIC COUNSELOR [facility] Albumin 4.1 3.5 - 5.2 g/dL 06/29/2024 6:51 AM CANCER GENETIC COUNSELOR [facility] Bilirubin Total 1.6(H) <=1.2 mg/dL 06/29/2024 6:51 AM CANCER GENETIC COUNSELOR [facility] Blood ARTERIAL LINE / Unknown IVAD (Port) / Unknown 06/29/2024 6:04 AM CANCER GENETIC COUNSELOR 06/29/2024 6:19 AM CANCER GENETIC COUNSELOR us Rl Elias MD LAB - BLOOD ORDER SYD Final Result [facility] [place] [facility] [address] [facility], [address] [place] [address] * (ABNORMAL) Bilirubin direct (06/28/2024 6:06 AM CANCER GENETIC COUNSELOR) Bilirubin Direct 0.53(H) 0.00 - 0.30 mg/dL 06/28/2024 9:50 AM CANCER GENETIC COUNSELOR [facility] Blood VENOUS LINE / Unknown Venipuncture / Unknown 06/28/2024 6:06 AM CANCER GENETIC COUNSELOR 06/28/2024 6:22 AM CANCER GENETIC COUNSELOR Rl Elias MD LAB - BLOOD ORDER SYD Final Result Performing Organization Address City/[facility]/ZIP Co de Phone Number [facility] [place] [facility] [address] [facility], [address] [phone] * (ABNORMAL) RBC and Platelet Morphology (06/28/2024 6:06 AM CANCER GENETIC COUNSELOR) [facility] RBC Morphology Confirmed RBC Indices 06/28/2024 7:15 AM CANCER GENETIC COUNSELOR [facility] Platelet Assessment Automated Count Confirmed. Platelet morphology is normal. Automated Count Confirmed. Platelet morphology is normal. 06/28/2024 7:15 AM CANCER GENETIC COUNSELOR [facility] Sickle Cells Slight(A) None Seen 06/28/2024 7:15 AM CANCER GENETIC COUNSELOR [facility] Target Cells Moderate(A) None Seen 06/28/2024 7:15 AM CANCER GENETIC COUNSELOR [facility] Blood VENOUS LINE / Unknown Venipuncture / Unknown 06/28/2024 6:06 AM CANCER GENETIC COUNSELOR 06/28/2024 6:22 AM CANCER GENETIC COUNSELOR Rl Elias MD LAB - BLOOD ORDER SYD Final Result [facility] [place] [facility] [address] [facility], [address] [place] [phone] * (ABNORMAL) CBC with platelets and differential (06/28/2024 6:06 AM CANCER GENETIC COUNSELOR) [facility] WBC Count 15.3(H) 4.0 - 11.0 10e3/uL 06/28/2024 7:14 AM CANCER GENETIC COUNSELOR [facility] RBC Count 2.49(L) 3.80 - 5.20 10e6/uL 06/28/2024 7:14 AM CANCER GENETIC COUNSELOR [facility] Hemoglobin 8.2(L) 11.7 - 15.7 g/dL 06/28/2024 7:14 AM CANCER GENETIC COUNSELOR [facility] Hematocrit 24.0(L) 35.0 - 47.0 % 06/28/2024 7:14 AM CANCER GENETIC COUNSELOR [facility] MCV 96 78 - 100 fL 06/28/2024 7:14 AM CANCER GENETIC COUNSELOR [facility] MCH 32.9 26.5 - 33.0 pg 06/28/2024 7:14 AM CANCER GENETIC COUNSELOR [facility] MCHC 34.2 31.5 - 36.5 g/dL 06/28/2024 7:14 AM CANCER GENETIC COUNSELOR [facility] RDW 18.3(H) 10.0 - 15.0 % 06/28/2024 7:14 AM CANCER GENETIC COUNSELOR [facility] Platelet Count 401 150 - 450 10e3/uL 06/28/2024 7:14 AM CANCER GENETIC COUNSELOR [facility] % Neutrophils 46 % 06/28/2024 7:14 AM CANCER GENETIC COUNSELOR [facility] % Lymphocytes 40 % 06/28/2024 7:14 AM CANCER GENETIC COUNSELOR [facility] % Monocytes 10 % 06/28/2024 7:14 AM CANCER GENETIC COUNSELOR [facility] % Eosinophils 4 % 06/28/2024 7:14 AM CANCER GENETIC COUNSELOR [facility] % Basophils 1 % 06/28/2024 7:14 AM CANCER GENETIC COUNSELOR [facility] % Immature Granulocytes 0 % 06/28/2024 7:14 AM CANCER GENETIC COUNSELOR [facility] NRBCs per 100 WBC 1(H) <1 /100 025 7:14 AM CANCER GENETIC COUNSELOR [facility] Absolute Neutrophils 7.0 1.6 - 8.3 10e3/uL 06/28/2024 7:14 AM CANCER GENETIC COUNSELOR [facility] Absolute Lymphocytes 6.0(H) 0.8 - 5.3 10e3/uL 06/28/2024 7:14 AM CANCER GENETIC COUNSELOR [facility] Absolute Monocytes 1.5(H) 0.0 - 1.3 10e3/uL 06/28/2024 7:14 AM CANCER GENETIC COUNSELOR [facility] Absolute Eosinophils 0.5 0.0 - 0.7 10e3/uL 06/28/2024 7:14 AM CANCER GENETIC COUNSELOR [facility] Absolute Basophils 0.2 0.0 - 0.2 10e3/uL 06/28/2024 7:14 AM CANCER GENETIC COUNSELOR [facility] Absolute Immature Granulocytes 0.1 <=0.4 10e3/uL 06/28/2024 7:14 AM CANCER GENETIC COUNSELOR [facility] Absolute NRBCs 0.1 10e3/uL 06/28/2024 7:14 AM CANCER GENETIC COUNSELOR [facility] Blood VENOUS LINE / Unknown Venipuncture / Unknown 06/28/2024 6:06 AM CANCER GENETIC COUNSELOR 06/28/2024 6:22 AM CANCER GENETIC COUNSELOR Rl Elias MD LAB - BLOOD ORDER SYD Final Result Performing Organization Address City/[facility] de Phone Number [facility] [place] [facility] [address] [facility], [address] * (ABNORMAL) Reticulocyte count (06/28/2024 6:06 AM CANCER GENETIC COUNSELOR) % Reticulocyte 12.7(H) 0.5 - 2.0 % 06/28/2024 6:57 AM CANCER GENETIC COUNSELOR [facility] Comment:x2 dilution Absolute Reticulocyte 0.316(H) 0.025 - 0.095 10e6/uL 06/28/2024 6:57 AM CANCER GENETIC COUNSELOR [facility] Comment:x2 dilution Blood VENOUS LINE / Unknown Venipuncture / Unknown 06/28/2024 6:06 AM CANCER GENETIC COUNSELOR 06/28/2024 6:22 AM CANCER GENETIC COUNSELOR Rl Elias MD LAB - BLOOD ORDER SYD Final Result Performing Organization Address City/[facility]/ZIP Nc de Phone Number [facility] [place] [facility] [address] [facility], [address] [phone] * (ABNORMAL) Lactate Dehydrogenase (06/28/2024 6:06 AM CANCER GENETIC COUNSELOR) Lactate Dehydrogenase 451(H) 0 - 250 U/L 06/28/2024 6:51 AM CANCER GENETIC COUNSELOR [facility] Blood VENOUS LINE / Unknown Venipuncture / Unknown 06/28/2024 6:06 AM CANCER GENETIC COUNSELOR 06/28/2024 6:22 AM CANCER GENETIC COUNSELOR Rl Elias MD LAB - BLOOD ORDER SYD Final Result [facility] [place] [facility] [address] [facility], [address] [place] [address], [facility] * (ABNORMAL) Comprehensive metabolic panel (06/28/2024 6:06 AM CANCER GENETIC COUNSELOR) Sodium 134(L) 135 - 145 mmol/L 06/28/2024 6:51 AM CANCER GENETIC COUNSELOR [facility] Potassium 4.6 3.4 - 5.3 mmol/L 06/28/2024 6:51 AM CANCER GENETIC COUNSELOR [facility] Carbon Dioxide (CO2) 22 22 - 29 mmol/L 06/28/2024 6:51 AM CANCER GENETIC COUNSELOR [facility] Anion Gap 7 7 - 15 mmol/L 06/28/2024 6:51 AM CANCER GENETIC COUNSELOR [facility] Urea Nitrogen 11.8 6.0 - 20.0 mg/dL 06/28/2024 6:51 AM CANCER GENETIC COUNSELOR [facility] Creatinine 0.70 0.51 - 0.95 mg/dL 06/28/2024 6:51 AM CANCER GENETIC COUNSELOR [facility] GFR Estimate >90 >60 mL/min/1.7 3m2 06/28/2024 6:51 AM CANCER GENETIC COUNSELOR [facility] Comment:eGFR calculated us2020 CKD-EPI equation. Calcium 8.9 8.8 - 10.4 mg/dL 06/28/2024 6:51 AM CANCER GENETIC COUNSELOR [facility] Chloride 105 98 - 107 mmol/L 06/28/2024 6:51 AM CANCER GENETIC COUNSELOR [facility] Glucose 88 70 - 99 mg/dL 06/28/2024 6:51 AM CANCER GENETIC COUNSELOR [facility] Alkaline Phosphatase 106 40 - 150 U/L 06/28/2024 6:51 AM CANCER GENETIC COUNSELOR [facility] AST 34 0 - 45 U/L 06/28/2024 6:51 AM CANCER GENETIC COUNSELOR [facility] ALT 33 0 - 50 U/L 06/28/2024 6:51 AM CANCER GENETIC COUNSELOR [facility] Protein Total 7.2 6.4 - 8.3 g/dL 06/28/2024 6:51 AM CANCER GENETIC COUNSELOR [facility] Albumin 4.0 3.5 - 5.2 g/dL 06/28/2024 6:51 AM CANCER GENETIC COUNSELOR [facility] Bilirubin Total 1.3(H) <=1.2 mg/dL 06/28/2024 6:51 AM CANCER GENETIC COUNSELOR [facility] Blood VENOUS LINE / Unknown Venipuncture / Unknown 06/28/2024 6:06 AM CANCER GENETIC COUNSELOR 06/28/2024 6:22 AM CANCER GENETIC COUNSELOR Rl Elias MD LAB - BLOOD ORDER SYD Final Result Performing Organization Address City/[facility]/ZIP Co de Phone Number LABORATORY [facility] [place] [facility] [address] [facility], [address] * Heparin Unfractionated Anti Xa Level (06/28/2024 1:57 AM CANCER GENETIC COUNSELOR) Anti Xa Unfractionated Heparin 0.45 For Reference Range, See Comment IU/mL 06/28/2024 2:32 AM CANCER GENETIC COUNSELOR [facility] Blood VENOUS LINE / Unknown Venipuncture / Unknown 06/28/2024 1:57 AM CANCER GENETIC COUNSELOR 06/28/2024 2:17 AM CANCER GENETIC COUNSELOR Narrative [facility] - 06/28/2024 2:32 AM CANCER GENETIC COUNSELOR Therapeutic Range: UFH: 0.25-0.50 IU/mL for low intensity dosing, 0.30-0.70 IU/mL for high intensity dosing DVT and PE. This test is not validated for other direct factor X inhibitors (e.g. rivaroxaban, apixaban, edoxaban, betrixaban, fondaparinux) and should not be used for monitoring of other medications. Alex Gillespie MD LAB - BLOOD ORDERABLES Final Re sult Performing Organization Address City/[facility]/ZIP Co de Phone Number LABORATORY [facility] [place] [facility] [address] [facility], [address] * Heparin Unfractionated Anti Xa Level (06/27/2024 7:14 PM CANCER GENETIC COUNSELOR) Anti Xa Unfractionated Heparin 0.39 For Reference Range, See Comment IU/mL 06/27/2024 7:58 PM CANCER GENETIC COUNSELOR [facility] Blood STRUCTURE OF RIGHT HAND / Unknown Venipuncture / Unknown 06/27/2024 7:14 PM CANCER GENETIC COUNSELOR 06/27/2024 7:21 PM CANCER GENETIC COUNSELOR Narrative [facility] - 06/27/2024 7:58 PM CANCER GENETIC COUNSELOR Therapeutic Range: UFH: 0.25-0.50 IU/mL for low intensity dosing, 0.30-0.70 IU/mL for high intensity dosing DVT and PE. This test is not validated for other direct factor X inhibitors (e.g. rivaroxaban, apixaban, edoxaban, betrixaban, fondaparinux) and should not be used for monitoring of other medications. us Octavio Rivera MD LAB - BLOOD ORDERABLES Final Res ult LABORATORY [facility] [address] [facility], [address] [place] [address] * Extra Green Top ([place] Heparin) Tube (06/27/2024 5:55 PM CANCER GENETIC COUNSELOR) Hold Specimen [facility] 06/27/2024 8:31 PM CANCER GENETIC COUNSELOR [facility] Blood STRUCTURE OF RIGHT WRIST REGION / Unknown Venipuncture / Unknown 06/27/2024 5:55 PM CANCER GENETIC COUNSELOR 06/27/2024 7:22 PM CANCER GENETIC COUNSELOR us Alex Gillespie MD LAB - BLOOD ORDERABLES Final Re sult Performing Organization Address City/[facility]/ZIP Co de Phone Number LABORATORY [facility] [address] [facility], [address] * ECHO COMPLETE (06/27/2024 2:33 PM CANCER GENETIC COUNSELOR) LVEF 55-60% CARDIOLOGY RESULTS Anatomical Region Laterality Modality Echocardiography 06/27/2024 1:58 PM CANCER GENETIC COUNSELOR Narrative 06/27/2024 2:51 PM CANCER GENETIC COUNSELOR [id number]^BRITTANEY^AAMATEO [facility] [facility] [address] [place] [address] Name: LEW HERNÁNDEZ : 1995 Study Date: 06/27/2024 01:58 PM Age: 29 yrs Gender: Female Patient Location: [facility] Reason For Study: Pulmonary Emboli Ordering Physician: [...] Procedure Note Salvador Perea MD - 06/27/2024 [id number]^BRITTANEY^JERMAINE [facility] [facility] [address] [place] [address] Name: LEW HERNÁNDEZ : 1995 Study Date: 06/27/2024 01:58 PM Age: 29 yrs Gender: Female Patient Location: [facility] Reason For Study: Pulmonary Emboli Ordering Physician: [...] Unfractionated Anti Xa Level (06/27/2024 12:39 PM CANCER GENETIC COUNSELOR) Anti Xa Unfractionated Heparin 0.29 For Reference Range, See Comment IU/mL 06/27/2024 1:22 PM CANCER GENETIC COUNSELOR [facility] Blood STRUCTURE OF LEFT HAND / Unknown Venipuncture / Unknown 06/27/2024 12:39 PM CANCER GENETIC COUNSELOR 06/27/2024 12:54 PM CANCER GENETIC COUNSELOR Narrative [facility] - 06/27/2024 1:22 PM CANCER GENETIC COUNSELOR Therapeutic Range: UFH: 0.25-0.50 IU/mL for low intensity dosing, 0.30-0.70 IU/mL for high intensity dosing DVT and PE. This test is not validated for other direct factor X inhibitors (e.g. rivaroxaban, apixaban, edoxaban, betrixaban, fondaparinux) and should not be used for monitoring of other medications. us Esdras Markham MD LAB - BLOOD ORDERABLES Final Res ult [facility] [place] [facility] [address] [facility], [address] [place] [address], [facility] * US Lower Extremity Venous Duplex Bilateral (06/27/2024 11:21 AM CANCER GENETIC COUNSELOR) Anatomical Region Laterality Modality Vascular, Thigh, Leg Ultrasound Impressions 06/27/2024 11:45 AM CANCER GENETIC COUNSELOR IMPRESSION: No evidence of deep venous thrombosis in either lower extremity. I have personally reviewed the examination and initial interpretation and I agree with the findings. NINOSKA QUAN MD Narrative 06/27/2024 11:45 AM CANCER GENETIC COUNSELOR EXAMINATION: DOPPLER VENOUS ULTRASOUND OF BILATERAL LOWER [...] findings. NINOSKA QUAN MD Rl Elias MD [facility] ORDERABLES Final Result * Influenza A/B, RSV and SARS-CoV2 PCR (COVID-19) Nose (06/27/2024 8:43 AM CANCER GENETIC COUNSELOR) Influenza A PCR Negative Negative 06/27/2024 10:03 AM CANCER GENETIC COUNSELOR [facility] Influenza B PCR Negative Negative 06/27/2024 10:03 AM CANCER GENETIC COUNSELOR [facility] RSV PCR Negative Negative 06/27/2024 10:03 AM CANCER GENETIC COUNSELOR [facility] SARS CoV2 PCR Negative Negative 06/27/2024 10:03 AM CANCER GENETIC COUNSELOR [facility] Comment:NEGATIVE: SARS-CoV-2 (COVID-19) RNA not detected, presumed negative. Swab NASAL STRUCTURE / Unknown Non-blood Collection / Unknown 06/27/2024 8:43 AM CANCER GENETIC COUNSELOR 06/27/2024 8:59 AM CANCER GENETIC COUNSELOR Narrative [facility] - 06/27/2024 10:03 AM CANCER GENETIC COUNSELOR Testing was performed using the Xpert Xpress CoV2/Flu/RSV Assay on the [employer] GeneXpert Instrument. This test should be ordered [...] management. This test was validated by the [facility]. These laboratories are certified under the Clinical Laboratory Improvement Amendments of 1988 (CLIA-88) as qualified to perfom high complexity laboratory testing. Rl Elias MD LAB - MICRO GENER AL ORDERABLES Final Result [facility] Inf. Diseases Diag. Lab [address] [facility], [address] [place] [address] * (ABNORMAL) UA with Microscopic reflex to Culture (06/27/2024 8:12 AM CANCER GENETIC COUNSELOR) Color Urine Light Yellow Colorless, Straw, Light Yellow, Yellow 06/27/2024 8:29 AM CANCER GENETIC COUNSELOR [facility] Appearance Urine Clear Clear 06/28/19 8:29 AM CANCER GENETIC COUNSELOR [facility] Glucose Urine Negative Negative mg/dL 06/27/2024 8:29 AM CANCER GENETIC COUNSELOR [facility] Bilirubin Urine Negative Negative 8:29 AM CANCER GENETIC COUNSELOR [facility] Ketones Urine Negative Negative mg/dL 06/27/2024 8:29 AM CANCER GENETIC COUNSELOR [facility] Specific [place] Urine 1.011 1.003 - 1.035 06/27/2024 8:29 AM CANCER GENETIC COUNSELOR [facility] Blood Urine Negative Negative 06/27/2024 8:29 AM CANCER GENETIC COUNSELOR [facility] pH Urine 7.0 5.0 - 7.0 06/27/2024 8:29 AM CANCER GENETIC COUNSELOR [facility] Protein Albumin Urine Negative Negative mg/dL 06/27/2024 8:29 AM CANCER GENETIC COUNSELOR [facility] Urobilinogen Urine Normal Normal, 2.0 mg/dL 06/27/2024 8:29 AM CANCER GENETIC COUNSELOR [facility] Nitrite Urine Negative Negative 06/27/2024 8:29 AM CANCER GENETIC COUNSELOR [facility] Leukocyte Esterase Urine Negative Negative 06/27/2024 8:29 AM CANCER GENETIC COUNSELOR [facility] RBC Urine 0 <=2 /HPF 06/27/2024 8:29 AM CANCER GENETIC COUNSELOR [facility] WBC Urine 0 <=5 /HPF 06/27/2024 8:29 AM CANCER GENETIC COUNSELOR [facility] Squamous Epithelials Urine 2(H) <=1 /HPF 06/27/2024 8:29 AM CANCER GENETIC COUNSELOR [facility] Urine URINE SPECIMEN OBTAINED BY CLEAN CATCH PROCEDURE / Unknown Non-blood Collection / Unknown 06/27/2024 8:12 AM CANCER GENETIC COUNSELOR 06/27/2024 8:18 AM CANCER GENETIC COUNSELOR Narrative [facility] - 06/27/2024 8:29 AM CANCER GENETIC COUNSELOR Urine Culture not indicated Rl Elias MD LAB - URINE ORDER SYD Final Result U LABORATORY [facility] [place] [facility] [address] [facility] [address], [address] [place] [address] * Adult Type and Screen (06/27/2024 5:57 AM CANCER GENETIC COUNSELOR) ABO/RH(D) A POS 06/27/2024 11:54 AM CANCER GENETIC COUNSELOR [facility] Antibody Screen Negative Negative 06/27/2024 11:54 AM CANCER GENETIC COUNSELOR [facility] Comment:Current antibody scr een is negative. Patient has a history of antibody(ies). A delay in compatible red blood cells may occur. SPECIMEN EXPIRATION DATE [id number] 06/27/2024 11:54 AM CANCER GENETIC COUNSELOR [facility] Blood BLOOD SPECIMEN / Unknown Venipuncture / Unknown 06/27/2024 5:57 AM CANCER GENETIC COUNSELOR 06/27/2024 6:07 AM CANCER GENETIC COUNSELOR Rl Elias MD LAB - BLOOD BANK TEST ORDER Final Result Performing Organization Address City/[facility] Co de Phone Number [facility] [address] [place] [address] * (ABNORMAL) RBC and Platelet Morphology (06/27/2024 5:57 AM CANCER GENETIC COUNSELOR) RBC Morphology Confirmed RBC Indices 06/27/2024 10:33 AM CANCER GENETIC COUNSELOR [facility] Platelet Assessment Automated Count Confirmed. Platelet morphology is normal. Automated Count Confirmed. Platelet morphology is normal. 06/27/2024 10:33 AM CANCER GENETIC COUNSELOR [facility] Rayle Cells Moderate(A) None Seen 06/27/2024 10:33 AM CANCER GENETIC COUNSELOR [facility] Polychromasia Slight(A) None Seen 06/27/2024 10:33 AM CANCER GENETIC COUNSELOR [facility] Sickle Cells Slight(A) None Seen 06/27/2024 10:33 AM CANCER GENETIC COUNSELOR [facility] Target Cells Slight(A) None Seen 06/27/2024 10:33 AM CANCER GENETIC COUNSELOR [facility] Blood BLOOD SPECIMEN / Unknown Venipuncture / Unknown 06/27/2024 5:57 AM CANCER GENETIC COUNSELOR 06/27/2024 6:07 AM CANCER GENETIC COUNSELOR us Rl Elias MD LAB - BLOOD ORDER SYD Final Result [facility] [place] [facility] [address] [facility], [address] [place] [phone] * (ABNORMAL) CBC with platelets and differential (06/27/2024 5:57 AM CANCER GENETIC COUNSELOR) WBC Count 17.8(H) 4.0 - 11.0 10e3/uL 06/27/2024 10:36 AM CANCER GENETIC COUNSELOR [facility] Comment:Albumin treated bloo d due to Smudge Cells. RBC Count 2.60(L) 3.80 - 5.20 10e6/uL 06/27/2024 10:36 AM CANCER GENETIC COUNSELOR [facility] Hemoglobin 8.5(L) 11.7 - 15.7 g/dL 06/27/2024 10:36 AM CANCER GENETIC COUNSELOR [facility] Hematocrit 25.9(L) 35.0 - 47.0 % 06/27/2024 10:36 AM CANCER GENETIC COUNSELOR [facility] MCV 100 78 - 100 fL 06/27/2024 10:36 AM CANCER GENETIC COUNSELOR [facility] MCH 32.7 26.5 - 33.0 pg 06/27/2024 10:36 AM CANCER GENETIC COUNSELOR [facility] MCHC 32.8 31.5 - 36.5 g/dL 06/27/2024 10:36 AM CANCER GENETIC COUNSELOR [facility] RDW 19.2(H) 10.0 - 15.0 % 06/27/2024 10:36 AM CANCER GENETIC COUNSELOR [facility] Platelet Count 469(H) 150 - 450 10e3/uL 06/27/2024 10:36 AM CANCER GENETIC COUNSELOR [facility] % Neutrophils 44 % 06/27/2024 10:36 AM CANCER GENETIC COUNSELOR [facility] % Lymphocytes 46 % 06/27/2024 10:36 AM CANCER GENETIC COUNSELOR [facility] % Monocytes 7 % 06/27/2024 10:36 AM CANCER GENETIC COUNSELOR [facility] % Eosinophils 3 % 06/27/2024 10:36 AM CANCER GENETIC COUNSELOR [facility] % Basophils 1 % 06/27/2024 10:36 AM CANCER GENETIC COUNSELOR [facility] % Immature Granulocytes 0 % 06/27/2024 10:36 AM CANC[employer] GENETIC COUNSEL[employer] [facility] NRBCs per 100 WBC 1(H) <1 /100 025 10:36 AM [employer] GENETIC COUNSEL[employer] [facility] Absolute Neutrophils 7.6 1.6 - 8.3 10e3/uL 06/27/2024 10:36 AM [employer] GENETIC COUNSELOR [facility] Absolute Lymphocytes 8.0(H) 0.8 - 5.3 10e3/uL 06/27/2024 10:36 AM [employer] GENET[employer] COUNSEL[employer] [facility] Absolute Monocytes 1.2 0.0 - 1.3 10e3/uL 06/27/2024 10:36 AM [employer] GENETIC COUNSEL[employer] [facility] Absolute Eosinophils 0.5 0.0 - 0.7 10e3/uL 06/27/2024 10:36 AM [employer] GENET[employer] COUNSEL[employer] [facility] Absolute Basophils 0.2 0.0 - 0.2 10e3/uL 06/27/2024 10:36 AM [employer] GENETIC COUNSEL[employer] [facility] Absolute Immature Granulocytes 0.1 <=0.4 10e3/uL 06/27/2024 10:36 AM CANC[employer] GENETIC COUNSELOR [facility] Absolute NRBCs 0.2 10e3/uL 06/27/2024 10:36 AM [employer] GENETIC COUNSEL[employer] [facility] Blood BLOOD SPECIMEN / Unknown Venipuncture / Unknown 06/27/2024 5:57 AM [employer]CER GENETIC COUNSELOR 06/27/2024 6:07 AM CANCER GENETIC COUNSELOR Rl Elias MD LAB - BLOOD ORDER SYD Final Result [facility] [place] [facility] [address] [facility], [address] [place] [id number] * (ABNORMAL) Reticulocyte count (06/27/2024 5:57 AM CANCER GENETIC COUNSELOR) [facility] % Reticulocyte 15.5(H) 0.5 - 2.0 % 06/27/2024 9:16 AM CANCER GENETIC COUNSELOR [facility] Comment:x2 dilution Absolute Reticulocyte 0.404(H) 0.025 - 0.095 10e6/uL 06/27/2024 9:16 AM CANC[employer] GENETIC COUNSELOR [facility] Comment:x2 dilution Blood BLOOD SPECIMEN / Unknown Venipuncture / Unknown 06/27/2024 5:57 AM CANCER GENETIC COUNSELOR 06/27/2024 6:07 AM CANCER GENETIC COUNSELOR Rl Elias MD LAB - BLOOD ORDER SYD Final Result [facility] [place] [facility] [address] [facility], Room [address] * (ABNORMAL) Hepatic panel (06/27/2024 5:57 AM CANCER GENETIC COUNSELOR) Protein Total 7.4 6.4 - 8.3 g/dL 06/27/2024 9:06 AM CANCER GENETIC COUNSELOR [facility] Albumin 4.0 3.5 - 5.2 g/dL 06/27/2024 9:06 AM CANCER GENETIC COUNSELOR [facility] Bilirubin Total 1.2 <=1.2 mg/dL 06/27/2024 9:06 AM CANCER GENETIC COUNSELOR [facility] Alkaline Phosphatase 113 40 - 150 U/L 06/27/2024 9:06 AM CANCER GENETIC COUNSELOR [facility] AST 41 0 - 45 U/L 06/27/2024 9:06 AM CANCER GENETIC COUNSELOR [facility] ALT 35 0 - 50 U/L 06/27/2024 9:06 AM CANCER GENETIC COUNSELOR [facility] Bilirubin Direct 0.45(H) 0.00 - 0.30 mg/dL 06/27/2024 9:06 AM CANCER GENETIC COUNSELOR [facility] Blood BLOOD SPECIMEN / Unknown Venipuncture / Unknown 06/27/2024 5:57 AM CANCER GENETIC COUNSELOR 06/27/2024 6:06 AM CANCER GENETIC COUNSELOR Rl Elias MD LAB - BLOOD ORDER SYD Final Result [facility] [place] [facility] [address] [facility], Room [address] * (ABNORMAL) CBC with platelets (06/27/2024 5:57 AM CANCER GENETIC COUNSELOR) WBC Count 17.8(H) 4.0 - 11.0 10e3/uL 06/27/2024 6:16 AM CANCER GENETIC COUNSELOR [facility] RBC Count 2.60(L) 3.80 - 5.20 10e6/uL 06/27/2024 6:16 AM CANCER GENETIC COUNSELOR [facility] Hemoglobin 8.5(L) 11.7 - 15.7 g/dL 06/27/2024 6:16 AM CANCER GENETIC COUNSELOR [facility] Hematocrit 25.9(L) 35.0 - 47.0 % 06/27/2024 6:16 AM CANCER GENETIC COUNSELOR [facility] MCV 100 78 - 100 fL 06/27/2024 6:16 AM CANCER GENETIC COUNSELOR [facility] MCH 32.7 26.5 - 33.0 pg 06/27/2024 6:16 AM CANCER GENETIC COUNSELOR [facility] MCHC 32.8 31.5 - 36.5 g/dL 06/27/2024 6:16 AM CANCER GENETIC COUNSELOR [facility] RDW 19.2(H) 10.0 - 15.0 % 06/27/2024 6:16 AM CANCER GENETIC COUNSELOR [facility] Platelet Count 469(H) 150 - 450 10e3/uL 06/27/2024 6:16 AM CANCER GENETIC COUNSELOR [facility] Blood BLOOD SPECIMEN / Unknown Venipuncture / Unknown 06/27/2024 5:57 AM CANCER GENETIC COUNSELOR 06/27/2024 6:07 AM CANCER GENETIC COUNSELOR us Jermaine Quispe MD LAB - BLOOD ORDERABLES Final Res ult [facility] [place] [facility] [address] [facility], [address] [phone] * (ABNORMAL) Basic metabolic panel (06/27/2024 5:57 AM CANCER GENETIC COUNSELOR) Sodium 136 135 - 145 mmol/L 06/27/2024 7:08 AM CANCER GENETIC COUNSELOR [facility] Potassium 4.2 3.4 - 5.3 mmol/L 06/27/2024 7:08 AM CANCER GENETIC COUNSELOR [facility] Chloride 104 98 - 107 mmol/L 06/27/2024 7:08 AM CANCER GENETIC COUNSELOR [facility] Carbon Dioxide (CO2) 23 22 - 29 mmol/L 06/27/2024 7:08 AM CANCER GENETIC COUNSELOR [facility] Anion Gap 9 7 - 15 mmol/L 06/27/2024 7:08 AM CANCER GENETIC COUNSELOR [facility] Urea Nitrogen 8.0 6.0 - 20.0 mg/dL 06/27/2024 7:08 AM CANCER GENETIC COUNSELOR [facility] Creatinine 0.74 0.51 - 0.95 mg/dL 06/27/2024 7:08 AM CANCER GENETIC COUNSELOR [facility] GFR Estimate >90 >60 mL/min/1.7 3m2 06/27/2024 7:08 AM CANCER GENETIC COUNSELOR [facility] Comment:eGFR calculated usin 2020 CKD-EPI equation. Calcium 8.7(L) 8.8 - 10.4 mg/dL 06/27/2024 7:08 AM CANCER GENETIC COUNSELOR [facility] Glucose 90 70 - 99 mg/dL 06/27/2024 7:08 AM CANCER GENETIC COUNSELOR [facility] Blood BLOOD SPECIMEN / Unknown Venipuncture / Unknown 06/27/2024 5:57 AM CANCER GENETIC COUNSELOR 06/27/2024 6:06 AM CANCER GENETIC COUNSELOR Jermaine Quispe MD LAB - BLOOD ORDERABLES Final Res ult [facility] [place] [facility] [address] [facility], Room [address] [place] [phone] * Heparin Unfractionated Anti Xa Level (06/27/2024 5:56 AM CANCER GENETIC COUNSELOR) [facility] Signature Anti Xa Unfractionated Heparin 0.30 For Reference Range, See Comment IU/mL 06/27/2024 6:29 AM CANCER GENETIC COUNSELOR [facility] Blood STRUCTURE OF RIGHT HAND / Unknown Venipuncture / Unknown 06/27/2024 5:56 AM CANCER GENETIC COUNSELOR 06/27/2024 6:07 AM CANCER GENETIC COUNSELOR Narrative [facility] - 06/27/2024 6:29 AM CANCER GENETIC COUNSELOR Therapeutic Range: UFH: 0.25-0.50 IU/mL for low intensity dosing, 0.30-0.70 IU/mL for high intensity dosing DVT and PE. This test is not validated for other direct factor X inhibitors (e.g. rivaroxaban, apixaban, edoxaban, betrixaban, fondaparinux) and should not be used for monitoring of other medications. Esdras Markham MD LAB - BLOOD ORDERABLES Final Res ult [facility] [place] [facility] [address] [facility], Room [address] * Heparin Unfractionated Anti Xa Level (06/26/2024 10:46 PM CANCER GENETIC COUNSELOR) Anti Xa Unfractionated Heparin 0.28 For Reference Range, See Comment IU/mL 06/26/2024 11:13 PM CANCER GENETIC COUNSELOR [facility] Blood STRUCTURE OF RIGHT HAND / Unknown Venipuncture / Unknown 06/26/2024 10:46 PM CANCER GENETIC COUNSELOR 06/26/2024 10:55 PM CANCER GENETIC COUNSELOR Narrative [facility] - 06/26/2024 11:13 PM CANCER GENETIC COUNSELOR Therapeutic Range: UFH: 0.25-0.50 IU/mL for low intensity dosing, 0.30-0.70 IU/mL for high intensity dosing DVT and PE. This test is not validated for other direct factor X inhibitors (e.g. rivaroxaban, apixaban, edoxaban, betrixaban, fondaparinux) and should not be used for monitoring of other medications. Jermaine Quispe MD LAB - BLOOD ORDERABLES Final Res ult Performing Organization Address [facility]/ZIP Co de Phone Number LABORATORY [facility] [address] [facility], Room [address] [place] [address] * (ABNORMAL) Erythrocyte sedimentation rate auto (06/26/2024 6:46 PM CANCER GENETIC COUNSELOR) Pathologist [facility] Erythrocyte Sedimentation Rate 24(H) 0 - 20 mm/hr 06/26/2024 7:28 PM CANCER GENETIC COUNSELOR [facility] Blood BLOOD SPECIMEN / Unknown Venipuncture / Unknown 06/26/2024 6:46 PM CANCER GENETIC COUNSELOR 06/26/2024 7:14 PM CANCER GENETIC COUNSELOR Jermaine Quispe MD LAB - BLOOD ORDERABLES Final Res ult [facility]ATORY [facility] [place] [facility] [address] [facility], Room [address] * Blood Culture Peripheral Blood (06/26/2024 6:46 PM CANCER GENETIC COUNSELOR) Culture No Growth 07/01/2024 9:47 PM CANCER GENETIC COUNSELOR [facility] Blood BLOOD SPECIMEN / Unknown Venipuncture / Unknown 06/26/2024 6:46 PM CANCER GENETIC COUNSELOR 06/26/2024 7:14 PM CANCER GENETIC COUNSELOR Jermaine Quispe MD LAB - MICRO GENERAL ORDERABLES F inal Result Performing Organization Address City/[facility]/ZIP Co de Phone Number [facility] Inf. Diseases Diag. Lab [address] [facility], Room [address] * Blood Culture Peripheral Blood (06/26/2024 6:46 PM CANCER GENETIC COUNSELOR) Culture No Growth 07/01/2024 9:47 PM CANCER GENETIC COUNSELOR [facility] Blood BLOOD SPECIMEN / Unknown Venipuncture / Unknown 06/26/2024 6:46 PM CANCER GENETIC COUNSELOR 06/26/2024 7:15 PM CANCER GENETIC COUNSELOR Narrative [facility] - 07/01/2024 9:47 PM CANCER GENETIC COUNSELOR Only an Aerobic Blood Culture Bottle was collected, interpret results with caution. Jermaine Quispe MD LAB - MICRO GENERAL ORDERABLES F inal Result Performing Organization Address City/[facility]/ZIP Co de Phone Number [facility] Inf. Diseases Diag. Lab [address] [facility], Room [address] * EKG 12 lead (06/26/2024 5:19 PM CANCER GENETIC COUNSELOR) Systolic Blood Pressure mmHg RADIOLOGY RESULTS Diastolic Blood Pressure mmHg RADIOLOGY RESULTS Ventricular Rate 79 BPM RAD IOLOGY RESULTS Atrial Rate 79 BPM RADIOLOG Y RESULTS [place] Interval 160 ms RADIOLOG Y RESULTS QRS Duration 78 ms RADIOLO GY RESULTS QT 380 ms RADIOLOGY RESULTS QTc 435 ms RADIOLOGY RESULTS P [place] 39 degrees RADIOLOGY RESULTS R AXIS 42 degrees RADIOLOGY RESULTS T [place] 18 degrees RADIOLOGY RESULTS Interpretation ECG Sinus rhythm Normal ECG Unconfirmed report - interpretation of this ECG is computer generated - see medical record for final interpretation Confirmed by - EMERGENCY ROOM, PHYSICIAN ([id number]), visual effects editor Woody Patten ([id number]) on 06/27/2024 6:46:34 AM RADIOLOGY RESULTS 06/26/2024 5:19 PM CANCER GENETIC COUNSELOR 06/27/2024 6:46 AM CANCER GENETIC COUNSELOR us Jayden Adhikari MD ECG ORDERABLES Edited Resul t - Final RADIOLOGY RESULTS * CT Chest Pulmonary Embolism w Contrast (06/26/2024 4:15 PM CANCER GENETIC COUNSELOR) Anatomical Region Laterality Modality Chest, SUBRAD CT BODY, UMP CT CHEST Computed Tomography Impressions 06/26/2024 4:29 PM CANCER GENETIC COUNSELOR IMPRESSION: Bilateral pulmonary emboli and bilateral pulmonary nodules, cannot exclude septic emboli the lungs given 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 No definitive evidence of right heart strain. Some bony changes again noted of sickle cell in the thoracic spine and humeral heads typical of microvascular insults related to sickle cell. EVY FUENTES MD Narrative 06/26/2024 4:29 PM CANCER GENETIC COUNSELOR CT chest pulmonary angiogram with contrast INDICATION: [...] related to sickle cell. EVY FUENTES MD Jayden Adhikari MD IMG CT ORDERABLES Final Resu lt * Chest XR, PA & LAT (06/26/2024 3:13 PM CANCER GENETIC COUNSELOR) Anatomical Region Laterality Modality Chest Digital Radiogra phy Impressions 06/26/2024 3:24 PM CANCER GENETIC COUNSELOR IMPRESSION: 1. Stable appearance of right middle lobe opacities which may represent infiltrate versus atelectasis. 2. No new or worsening cardiopulmonary abnormality. I have personally reviewed the examination and initial interpretation and I agree with the findings. EVY FUENTES MD Narrative 06/26/2024 3:24 PM CANCER GENETIC COUNSELOR EXAM: XR CHEST 2 VIEWS 06/26/2024 3:13 [...] findings. EVY FUENTES MD Jayden Adhikari MD IM DIAGNOSTIC IMAGING ORDER SYD Final Result * Procalcitonin (06/26/2024 2:42 PM CANCER GENETIC COUNSELOR) Procalcitonin 0.03 <0.50 ng/mL 06/26/2024 5:02 PM CANCER GENETIC COUNSELOR [facility] Comment: Interpretation and Recommendations <0.5 [...] See Procalcitonin Guidance document for more details. [email or web address] Factors that may affect PCT levels (not [...] Unknown Venipuncture / Unknown 06/26/2024 2:42 PM CANCER GENETIC COUNSELOR 06/26/2024 2:52 PM CANCER GENETIC COUNSELOR Jayden Adhikari MD LAB - BLOOD ORDERABLES Final Result U LABORATORY [facility] [place] [facility] [address] [facility], Room [address] * CRP inflammation (06/26/2024 2:42 PM CANCER GENETIC COUNSELOR) [facility] CRP Inflammation 4.22 <5.00 mg/L 06/27/19 25 5:02 PM CANCER GENETIC COUNSELOR U LABORATORY Blood BLOOD SPECIMEN / Unknown Venipuncture / Unknown 06/26/2024 2:42 PM CANCER GENETIC COUNSELOR 06/26/2024 2:52 PM CANCER GENETIC COUNSELOR Jayden Adhikari MD LAB - BLOOD ORDERABLES Final Result Performing Organization Address City/[facility]/ZIP Co de Phone Number U LABORATORY [facility] [place] [facility] [address] [facility], Room [address] * Adult Type and Screen (06/26/2024 2:42 PM CANCER GENETIC COUNSELOR) ABO/RH(D) A POS 06/26/2024 2:30 PM CANCER GENETIC COUNSELOR [facility] B[facility]OD BANK Antibody Screen Negative Negative 06/26/2024 2:30 PM CANCER GENETIC COUNSELOR [facility] B[facility] Comment:Current antibody scr een is negative. Patient has a history of antibody(ies). A delay in compatible red blood cells may occur. SPECIMEN EXPIRATION DATE [id number] 06/26/2024 2:30 PM CANCER GENETIC COUNSELOR [facility] BLOOD BANK Blood BLOOD SPECIMEN / Unknown Venipuncture / Unknown 06/26/2024 2:42 PM CANCER GENETIC COUNSELOR 06/26/2024 2:50 PM CANCER GENETIC COUNSELOR Jayden Adhikari MD LAB - BLOOD BANK TEST ORDER Final Result BLOOD BANK [address] [place] [phone] * (ABNORMAL) CBC with platelets and differential (06/26/2024 2:42 PM CANCER GENETIC COUNSELOR) WBC Count 12.3(H) 4.0 - 11.0 10e3/uL 06/26/2024 3:23 PM CANCER GENETIC COUNSELOR [facility] RBC Count 2.58(L) 3.80 - 5.20 10e6/uL 06/26/2024 3:23 PM CANCER GENETIC COUNSELOR [facility] Hemoglobin 8.5(L) 11.7 - 15.7 g/dL 06/26/2024 3:23 PM CANCER GENETIC COUNSELOR [facility] Hematocrit 26.1(L) 35.0 - 47.0 % 06/26/2024 3:23 PM CANCER GENETIC COUNSELOR [facility] MCV 101(H) 78 - 100 fL 06/26/2024 3:23 PM CANCER GENETIC COUNSELOR [facility] MCH 32.9 26.5 - 33.0 pg 06/26/2024 3:23 PM CANCER GENETIC COUNSELOR [facility] MCHC 32.6 31.5 - 36.5 g/dL 06/26/2024 3:23 PM CANCER GENETIC COUNSELOR [facility] RDW 19.5(H) 10.0 - 15.0 % 06/26/2024 3:23 PM CANCER GENETIC COUNSELOR [facility] Platelet Count 505(H) 150 - 450 10e3/uL 06/26/2024 3:23 PM CANCER GENETIC COUNSELOR [facility] % Neutrophils 69 % 06/26/2024 3:23 PM CANCER GENETIC COUNSELOR [facility] % Lymphocytes 20 % 06/26/2024 3:23 PM CANCER GENETIC COUNSELOR [facility] % Monocytes 9 % 06/26/2024 3:23 PM CANCER GENETIC COUNSELOR [facility] % Eosinophils 1 % 06/26/2024 3:23 PM CANCER GENETIC COUNSELOR [facility] % Basophils 1 % 06/26/2024 3:23 PM CANCER GENETIC COUNSELOR [facility] % Immature Granulocytes 1 % 06/26/2024 3:23 PM CANCER GENETIC COUNSELOR [facility] NRBCs per 100 WBC 1(H) <1 /100 025 3:23 PM CANCER GENETIC COUNSELOR [facility] Absolute Neutrophils 8.4(H) 1.6 - 8.3 10e3/uL 06/26/2024 3:23 PM CANCER GENETIC COUNSELOR [facility] Absolute Lymphocytes 2.4 0.8 - 5.3 10e3/uL 06/26/2024 3:23 PM CANCER GENETIC COUNSELOR [facility] Absolute Monocytes 1.1 0.0 - 1.3 10e3/uL 06/26/2024 3:23 PM CANCER GENETIC COUNSELOR [facility] Absolute Eosinophils 0.1 0.0 - 0.7 10e3/uL 06/26/2024 3:23 PM CANCER GENETIC COUNSELOR [facility] Absolute Basophils 0.2 0.0 - 0.2 10e3/uL 06/26/2024 3:23 PM CANCER GENETIC COUNSELOR [facility] Absolute Immature Granulocytes 0.1 <=0.4 10e3/uL 06/26/2024 3:23 PM CANCER GENETIC COUNSELOR [facility] Absolute NRBCs 0.1 10e3/uL 06/26/2024 3:23 PM CANCER GENETIC COUNSELOR [facility] Blood BLOOD SPECIMEN / Unknown Venipuncture / Unknown 06/26/2024 2:42 PM CANCER GENETIC COUNSELOR 06/26/2024 2:52 PM CANCER GENETIC COUNSELOR us Jayden Adhikari MD LAB - BLOOD ORDERABLES Final Result [facility] [place] [facility] [address] [facility], Room [address] [place] [phone], [facility] * Troponin T, High Sensitivity (06/26/2024 2:42 PM CANCER GENETIC COUNSELOR) [facility] Troponin T, High Sensitivity <6 <=14 ng/L 06/26/2024 3:24 PM CANCER GENETIC COUNSELOR [facility] Comment: Either a High Sensitivity [...] Unknown Venipuncture / Unknown 06/26/2024 2:42 PM CANCER GENETIC COUNSELOR 06/26/2024 2:52 PM CANCER GENETIC COUNSELOR Jayden Adhikari MD LAB - BLOOD ORDERABLES Final Result [facility] [address] [facility], Room [address] [place] [phone] * (ABNORMAL) D dimer quantitative (06/26/2024 2:42 PM CANCER GENETIC COUNSELOR) [facility] D-Dimer Quantitative 0.69(H) 0.00 - 0.50 ug/mL FEU 06/26/2024 3:13 PM CANCER GENETIC COUNSELOR [facility] Blood BLOOD SPECIMEN / Unknown Venipuncture / Unknown 06/26/2024 2:42 PM CANCER GENETIC COUNSELOR 06/26/2024 2:52 PM CANCER GENETIC COUNSELOR Narrative [facility] LAB[facility] - 06/26/2024 3:13 PM CANCER GENETIC COUNSELOR This D-dimer assay is intended for use in conjunction with a clinical pretest probability assessment model to exclude pulmonary embolism (PE) and deep venous thrombosis (DVT) in outpatients suspected of PE or DVT. The cut-off value is 0.50 ug/mL FEU. Jayden Adhikari MD LAB - BLOOD ORDERABLES Final Result [facility] [place] [facility] [address] [facility], Room [address] * HCG qualitative (blood) (06/26/2024 2:42 PM CANCER GENETIC COUNSELOR) Pathologist [facility] hCG Serum Qualitative Negative Negative JARET 06/26/2024 3:04 PM CANCER GENETIC COUNSELOR [facility] Comment:This test is for scr eening purposes. Results should be interpreted along with the clinical picture. Confirmation testing is available if warranted by ordering [id number], HCG Quantitative . Blood BLOOD SPECIMEN / Unknown Venipuncture / Unknown 06/26/2024 2:42 PM CANCER GENETIC COUNSELOR 06/26/2024 2:50 PM CANCER GENETIC COUNSELOR Jayden Adhikari MD LAB - BLOOD ORDERABLES Final Result Performing Organization Address [facility] de Phone Number [facility] [place] [facility] [address] [facility], Room [address] * (ABNORMAL) Basic metabolic panel (06/26/2024 2:42 PM CANCER GENETIC COUNSELOR) [facility] Sodium 140 135 - 145 mmol/L 06/26/2024 3:24 PM CANCER GENETIC COUNSELOR [facility] Potassium 4.3 3.4 - 5.3 mmol/L 06/26/2024 3:24 PM CANCER GENETIC COUNSELOR [facility] Chloride 109(H) 98 - 107 mmol/L 06/26/2024 3:24 PM CANCER GENETIC COUNSELOR [facility] Carbon Dioxide (CO2) 20(L) 22 - 29 mmol/L 06/26/2024 3:24 PM CANCER GENETIC COUNSELOR [facility] Anion Gap 11 7 - 15 mmol/L 06/26/2024 3:24 PM CANCER GENETIC COUNSELOR [facility] Urea Nitrogen 6.7 6.0 - 20.0 mg/dL 06/26/2024 3:24 PM CANCER GENETIC COUNSELOR [facility] Creatinine 0.66 0.51 - 0.95 mg/dL 06/26/2024 3:24 PM CANCER GENETIC COUNSELOR [facility] GFR Estimate >90 >60 mL/min/1.7 3m2 06/26/2024 3:24 PM CANCER GENETIC COUNSELOR [facility] Comment:eGFR calculated usin g 2021 CKD-EPI equation. Calcium 9.0 8.8 - 10.4 mg/dL 06/26/2024 3:24 PM CANCER GENETIC COUNSELOR [facility] Glucose 94 70 - 99 mg/dL 06/26/2024 3:24 PM CANCER GENETIC COUNSELOR [facility] Blood BLOOD SPECIMEN / Unknown Venipuncture / Unknown 06/26/2024 2:42 PM CANCER GENETIC COUNSELOR 06/26/2024 2:52 PM CANCER GENETIC COUNSELOR Jayden Adhikari MD LAB - BLOOD ORDERABLES Final Result [facility] [place] [facility] [address] [facility], Room [address] [place] [phone] documented in this [...] DVT-PE TreatmentIndications:DVT-PE Treatment $Given 06/29/2024 7:56 AM CANCER GENETIC COUNSELOR 10 mg $Given 06/28/2024 8:15 PM CANCER GENETIC COUNSELOR 10 mg $Given 06/28/2024 8:14 AM CANCER GENETIC COUNSELOR 10 mg apixaban ANTICOAGULANT (ELIQUIS) tablet 5 [...] For 1 dose $Given 06/26/2024 2:36 PM CANCER GENETIC COUNSELOR 25 mg diphenhydrAMINE (BENADRYL) capsule 25 mg 25 mg, Oral, EVERY 6 HOURS PRN, itching, Starting on Wed06/26/24 at 1837 $Given 06/26/2024 7:20 PM CANCER GENETIC COUNSELOR 25 mg diphenhydrAMINE (BENADRYL) injection 25 mg 25 mg, Intravenous, EVERY 6 HOURS PRN, itching, Starting on Wed06/26/24 at 1837 $Given 06/29/2024 6:00 AM CANCER GENETIC COUNSELOR 25 m g $Given 06/28/2024 10:07 PM CANCER GENETIC COUNSELOR 25 mg $Given 06/28/2024 4:09 PM CANCER GENETIC COUNSELOR 25 mg FLUoxetine (PROzac) capsule 10 mg 10 mg, Oral, DAILY, First dose on Wed06/27/24 at 0800 $Given 06/29/2024 7:56 AM CANCER GENETIC COUNSELOR 10 mg $Given 06/28/2024 8:14 AM CANCER GENETIC COUNSELOR 10 mg $Given 06/27/2024 8:28 AM CANCER GENETIC COUNSELOR 10 mg heparin - BOLUS DOSE from [...] re-enter medication order. $Given 06/27/2024 12:06 AM CANCER GENETIC COUNSELOR 1,550 Units heparin - BOLUS DOSE from [...] re-enter medication order. $Given 06/27/2024 1:34 PM CANCER GENETIC COUNSELOR 1,550 Units heparin 25,000 units in 0.45% [...] Xa 0.3-0.7) $New Bag 06/28/2024 7:51 AM CANCER GENETIC COUNSELOR 1,200 Units/hr 12 mL/hr Rate/Dose Verify 06/28/2024 3:17 AM CANCER GENETIC COUNSELOR 1,200 Units/hr 12 mL/hr Rate/Dose Verify 06/27/2024 8:21 PM CANCER GENETIC COUNSELOR 1,200 Units/hr 12 mL/hr heparin ANTICOAGULANT Loading [...] re-enter medication order. $Given 06/26/2024 4:50 PM CANCER GENETIC COUNSELOR 4,100 Units heparin lock flush 100 unit/mL [...] each port lumen $Given 06/29/2024 10:31 AM CANCER GENETIC COUNSELOR 5 mLs hydromorphone (DILAUDID) injection 2 mg 2 mg, Intravenous, EVERY 1 HOUR PRN, severe pain, Starting on Wed06/26/24 at 1429, For 3 doses $Given 06/26/2024 4:34 PM CANCER GENETIC COUNSELOR 2 mg $Given 06/26/2024 3:34 PM CANCER GENETIC COUNSELOR 2 mg $Given 06/26/2024 2:40 PM CANCER GENETIC COUNSELOR 2 mg hydromorphone (DILAUDID) injection 2 mg 2 mg, Intravenous, EVERY 2 HOURS PRN, moderate pain, severe pain, Starting on Wed06/26/24 at 1837 $Given 06/26/2024 9:48 PM CANCER GENETIC COUNSELOR 2 mg $Given 06/26/2024 7:20 PM CANCER GENETIC COUNSELOR 2 mg hydromorphone (DILAUDID) injection 2 mg 2 mg, Intravenous, EVERY 2 HOURS, First dose (after last modification) on Wed06/27/24 at 0000, Hold for excess sedation or RR < 8 / min and inform MD. $Given 06/29/2024 10:06 AM CANCER GENETIC COUNSELOR 2 mg $Given 06/29/2024 8:00 AM CANCER GENETIC COUNSELOR 2 mg $Given 06/29/2024 6:00 AM CANCER GENETIC COUNSELOR 2 mg hydroxyurea (HYDREA) capsule 1,000 mg 1,000 mg, Oral, 2 TIMES DAILY, First dose on Wed06/26/24 at 2000, Indications: sickle cell, Do not crush May require hepatic and/or renal dose or frequency adjustments. See reference link for guidelines.Indications:sickle cell $Given 06/29/2024 7:56 AM CANCER GENETIC COUNSELOR 1,000 mg $Given 06/28/2024 8:10 PM CANCER GENETIC COUNSELOR 1,000 mg $Given 06/28/2024 8:18 AM CANCER GENETIC COUNSELOR 1,000 mg hydrOXYzine HCl (ATARAX) tablet 25 [...] contact the provider. $Given 06/28/2024 4:09 PM CANCER GENETIC COUNSELOR 25 mg $Given 06/27/2024 8:19 AM CANCER GENETIC COUNSELOR 25 mg $Given 06/27/2024 3:14 AM CANCER GENETIC COUNSELOR 25 mg hydrOXYzine HCl (ATARAX) tablet 50 [...] For 1 dose $Given 06/26/2024 3:53 PM CANCER GENETIC COUNSELOR 55 mLs lactated ringers BOLUS 1,000 mL Intravenous, 1,000 mL, ONCE, at 500 mL/hr, Administer over 2 Hours, On Wed06/26/24 at 1435, For 1 dose $New Bag 06/26/2024 2:40 PM CANCER GENETIC COUNSELOR 1,000 mLs 500 mL/hr Lidocaine (LIDOCARE) 4 [...] Liquid not required. $Given 06/28/2024 8:14 AM CANCER GENETIC COUNSELOR 4 mg $Given 06/28/2024 2:02 AM CANCER GENETIC COUNSELOR 4 mg $Given 06/27/2024 8:19 PM CANCER GENETIC COUNSELOR 4 mg ondansetron (ZOFRAN) injection 4 mg [...] IV dormant line $Given 06/29/2024 10:06 AM CANCER GENETIC COUNSELOR 3 mLs $Given 06/29/2024 4:00 AM CANCER GENETIC COUNSELOR 3 mLs $Given 06/28/2024 6:05 PM CANCER GENETIC COUNSELOR 3 mLs sodium chloride (PF) 0.9% PF flush 82 mL 82 mL, Intravenous, ONCE, On Wed06/26/24 at 1540, For 1 dose $Given 06/26/2024 3:53 PM [employer] 82 mLs documented in this encounter Active and Recently Administered Medications Times are shown in [facility] [employer]. Scheduled Medication Order 06/27/2024 06/28/2024 06/29/2024 apixaban ANTICOAGULANT (ELIQUIS) tablet 10 mg(Linked Group 1) 10 mg, Oral, 2 TIMES DAILY, First dose on Wed06/28/24 at 0800, For 14 doses, Indications: DVT-PE Treatment 0814 ($Given - Provider: Sathish Goetz RN)2014 ($Given - Provider: Kathy Mccoy RN) 0756 ($Given - Provider: Maki Schultz RN) apixaban [...] Intracatheter, EVERY 28 DAYS, First dose on Wed06/29/24 at 1025, To de-access each port in dual implanted port. Flush with 10 mL NS sodium chloride 0.9% flush followed by 5 mL heparin (100 units/mL) at discharge and at least every 28 days. MAX: 5 mL per each port lumen 1031 ($Given - Provider: Maki Schultz, SOFIA) hydromorphone (DILAUDID) injection 2 mg 2 mg, Intravenous, EVERY 2 HOURS, First dose (after last modification) on Wed06/27/24 at 0000, Hold for excess sedation or RR < 8 / min and inform MD. 0159 ($Given - Provider: Gordo Sykes, SOFIA)0400 ($Given - Provider: Gordo Sykes, SOFIA)0601 ($Given - Provider: Gordo Sykes, SOFIA)0818 ($Given - Provider: Sathish Goetz RN)1030 ($Given - Provider: Sathish Goetz, SOFIA)1234 ($Given - Provider: Sathish Goetz RN)1432 ($Given - Provider: Sathish Goetz RN)1610 ($Given - Provider: Mely Barbour RN)1758 ($Given - Provider: Mely Barbour, SOFIA)2011 ($Given - Provider: Duke Olivares RN)2207 ($Given [...] Tika Osborn RN)1805 ($Given - Provider: Tika Osborn, RN)2010 ($Given - Provider: Kathy Mccoy, SOFIA)2203 ($Given - Provider: Kathy Mccoy, SOFIA) 0004 ($Given - Provider: Kathy Mccoy, RN)0200 ($Given - Provider: Kathy Mccoy, SOFIA)0359 ($Given - Provider: Lavinia Cruz, SOFIA)0600 ($Given - Provider: Lavinia Cruz SOFIA)0800 ($Given - Provider: Maki Schultz, SOFIA)1006 ($Given - Provider: Maki Schultz, SOFIA)1200 (Canceled Entry - Provider: Orders Generic [...] Sathish Goetz RN)2009 ($Given - Provider: Kathy Mccoy RN) 0756 ($Given - Provider: Maki Schultz, SOFIA) sodium chloride (PF) 0.9% PF flush [...] XA result- 0.30, in target range so writer editor is NOT adjusting. ordered next lab due [...] Sathish Goetz RN)1609 ($Given - Provider: Tika Osborn, SOFIA)2207 ($Given - Provider: Kathy Mccoy, SOFIA) 0600 ($Given - Provider: Lavinia Cruz RN) hydrOXYzine HCl (ATARAX) tablet 25 mg(Linked Group [...] (per pt statement))0819 ($Given - Provider: Sathish Goetz RN) 1605 ($Given - Provider: Tika Osborn RN) hydrOXYzine HCl (ATARAX) tablet 50 mg(Linked [...] (See Alternative - Provider: Sathish Goetz RN) 1607 (See Alternative - Provider: Tika Osborn RN) Lidocaine (LIDOCARE) 4 % Patch 1 [...] Gordo Sykes RN)0819 ($Given - Provider: Sathish Goetz, SOFIA)2019 ($Given - Provider: Duke Olivares RN) 0202 ($Given - Provider: Duke Olivares RN)0814 ($Given - Provider: Sathish Goetz, SOFIA) ondansetron (ZOFRAN) injection 4 mg(Linked Group 4) [...] Sykes RN)0819 (See Alternative - Provider: Sathish Goetz, RN)2019 (See Alternative - Provider: Duke Olivares, RN) 0202 (See Alternative - Provider: Duke Olivares, RN)0814 (See Alternative - Provider: Sathish Goetz, RN) Patient is already receiving anticoagulation with [...] Out COVID-19 06/27/2024 06/27/2024 06/27/2024 10:03 AM CANCER GENETIC COUNSELOR documented as of this encounter Care Teams Dental Sales Representative Relationship Specialty Start Date End Date Veronica Joseph MD [address] [place] [address] PCP - General Family Medicine 06/18/24 Mor Ramsey Medical Student 04/03/24 Case Samuel MD [address] [place] [address] 484, [address] [place], [place] [address] Assigned Pediatric Specialist Provider 05/18/24 Juhi Benson, RN Specialty Museum Archivist Hematology & Oncology 05/29/24 documented as of this encounter
--- OUTSIDE RECORDS SUMMARY | 2024-07-03 20:33 | XMS_ITS | Encounter Summary ---
Author Organization [place] Address [address] [place] [id number] Care Team Providers Care Hydro Plant Technician Name Role Phone No Ref-Primary, Physician Primary Care Provider Mor Ramsey Unavailable Unavailable Case Samuel MD Unavailable [phone] Juhi Benson RN Unavailable Unavailable Reason for Visit * Reason Comments Chest Pain Sickle Cell Pain Crisis Encounter Details Date Type Department Care Team (Late st Contact Info) Description 06/03/2024 3:22 PM MED SURG RN - 06/03/2024 5:30 PM MED SURG RN Emergency [facility] Emergency Room [facility] [place] [address] Jennifer Bell MD [address] [place] [address] Sickle cell pain crisis (H) Discharge Disposition: [...] on file Legal Sex Female 8:25 AM MED SURG RN Gender Identity Not on file Sexual Orientation Not on file documented as of this encounter Last Filed Vital Signs Vital Sign Reading Time Taken Comments Blood Pressure 117/57 06/03/2024 5:00 PM MED SURG RN Pulse 96 06/03/2024 5:00 PM MED SURG RN Temperature 36.3 C (97.4 F) 06/03/2024 3:23 PM MED SURG RN Respiratory Rate 17 06/03/2024 5:00 PM MED SURG RN Oxygen Saturation 96% 06/03/2024 5:00 PM MED SURG RN Inhaled Oxygen Concentration - - Weight 52.2 kg (115 lb) 06/03/2024 3:23 PM MED SURG RN Height 154.9 cm (5' 1) 06/03/2024 3:23 PM MED SURG RN Body Mass Index 21.73 06/03/2024 3:23 PM MED SURG RN documented in this encounter Discharge Instructions * [...] testing initially patient had labs done at [facility] ER earlier this morning as well as [...] external records: External records reviewed?: Outpatient Record: [facility] [place] today (06/03/24) Care impacted by chronic illness:Other: Sickle Cell Disease Did you consider but not order tests?: Work up considered but not performed and documented in chart, if applicable Did you interpret images independently?: Independent interpretation of ECG and images noted in documentation, when applicable. Consultation discussion with other provider:Did you involve another provider (healthcare market consultant, , pharmacy, etc.)?: No Discharge. I [...] 10-20 mL (10 mLs Intracatheter $Given 06/03/24 5507) heparin lock flush 10 unit/mL injection 5-10 [...] her sickle cell pain. Patient presented to [facility] this morning due to sickle cell crisis and has labs, covid, flu, RSV, and chest x-ray which were all negative. She usually visits [facility] ED when her pain presents but she did not want to drive far with the Novalact. According to patient, they didn't believe her sickle cell disease, so they discharged patient with no stronger pain medications so she decided to come here. Patient is afebrile. There were no other concerns/complaints at this time. Chart Review: - Patient presented to [facility] [place] today for her sickle cell pain crisis. 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, [facility] Functional asplenia Gallstones Hb-SS disease [...] Rate 85 BPM Atrial Rate 85 BPM OR Interval 136 ms QRS Duration 82 ms QT 382 ms QTc 454 ms P [place] 54 degrees R AXIS 72 degrees T [place] 50 degrees Interpretation ECG Sinus rhythm Nonspecific T wave abnormality Abnormal ECG When compared with ECG of 27-May-2024 12:12, No significant change was found Confirmed by SEE ED PROVIDER NOTE FOR, ECG INTERPRETATION ([id number]), film or videotape editor BEN PRAKASH ([id number]) on 06/03/2024 3:58:10 PM EKG: Performed at: 03-Jun-2024 15:24:43 Impression: Sinus rhythm, nonspecific T wave abnormality, abnormal ECG Rate: 85 Rhythm: Sinus [place]: 72 OR Interval: 136 QRS Interval: 82 QTc Interval: [...] her behalf by Alex Parsons, a trained registered medical transcriptionist. This document has been checked and approved by the attending provider. Jennifer Bell MD Emergency Medicine [facility] EMERGENCY ROOM [address] [facility] [id number] Dept: [phone] Jennifer Bell MD 06/03/24 170 SURG RN * Nedra Martin RN - 06/03/2024 3:23 PM CST Pt c/o a possible sickle cell crisis with right sided chest pain that radiates to the left side. The pt did attempt to try using her home medication of diluadid of 4 mg without relief. Was just seen at [facility]. Pt has a port. Triage Assessment [...] WDL WDL Cognitive/Neuro/Behavioral WDL Cognitive/Neuro/Behavioral WDL WDL SURG RN documented in this encounter Plan of Treatment Upcoming Encounters Date Type Department Care Team (Late st Contact Info) Description 07/04/2024 9:[address] [facility] [address] [place] [address] Case Samuel MD [address] [place] [address] [address], [address] [place], [place] [address] 07/06/2024 8:00 AM CDT Appointment [facility] [place] [address] [place] [phone] Case Samuel MD [address] [facility] [address], [address] [place], [place] [address] 07/10/2024 11:30 AM CDT Oncology Visit [facility] [address] [place] [address] Case Samuel MD [address] [facility] 484, [address] [place], [place] [address] documented as of this encounter Goals Goal Patient Goal Type Associated Problems Recent Progress Patient-Stated? Author Pain Management General On track( 025 12:40 PM MED SURG RN) Yes Juhi Benson, RN Note: Goal [...] Associated Diagnosis Comments ECG 12-LEAD WITH MUSE ALEXANDRU,JEREMIAS,LUCIANO STAT 06/03/2024 3:24 PM MED SURG RN documented in this encounter Results * ECG 12-LEAD WITH MUSE ([facility]) (06/03/2024 3:24 PM MED SURG RN) Systolic Blood Pressure 131 mmHg RADIOLOGY RESULTS Diastolic Blood Pressure 76 mmHg RADIOLOGY RESULTS Ventricular Rate 85 BPM RAD IOLOGY RESULTS Atrial Rate 85 BPM RADIOLOG Y RESULTS OR Interval 136 ms RADIOLOG Y RESULTS QRS Duration 82 ms RADIOLO GY RESULTS QT 382 ms RADIOLOGY RESULTS QTc 454 ms RADIOLOGY RESULTS P [place] 54 degrees RADIOLOGY RESULTS R AXIS 72 degrees RADIOLOGY RESULTS T [place] 50 degrees RADIOLOGY RESULTS Interpretation ECG Sinus rhythm Nonspecific T wave abnormality Abnormal ECG When compared with ECG of 27-May-2024 12:12, No significant change was found Confirmed by SEE ED PROVIDER NOTE FOR, ECG INTERPRETATION ([id number]), film or videotape editor BEN PRAKASH ([id number]) on 06/03/2024 3:58:10 PM RADIOLOGY RESULTS 06/03/2024 3:24 PM MED SURG RN 06/03/2024 3:58 PM MED SURG RN us Deshawn Arredondo MD ECG ORDERABLES Edited [...] For 1 dose $Given 06/03/2024 4:18 PM MED SURG RN 50 mg heparin lock flush 10 unit/mL [...] the heparin flush. $Given 06/03/2024 5:20 PM MED SURG RN 5 mLs heparin lock flush 100 unit/mL [...] For 3 doses $Given 06/03/2024 4:48 PM MED SURG RN 2 mg $Given 06/03/2024 3:46 PM MED SURG RN 2 mg lactated ringers BOLUS 1,000 mL Intravenous, 1,000 mL, ONCE, at 500 mL/hr, Administer over 2 Hours, On 06/03/24 at 1530, For 1 dose $New Bag 06/03/2024 3:51 PM MED SURG RN 1,000 mLs 500 mL/hr ondansetron (ZOFRAN) injection 8 mg 8 mg, Intravenous, ONCE, Administer over 2-5 Minutes, On 06/03/24 at 1530, For 1 dose $Given 06/03/2024 3:46 PM MED SURG RN 8 mg sodium chloride (PF) 0.9% PF [...] each port lumen. $Given 06/03/2024 3:51 PM MED SURG RN 10 mLs documented in this encounter Active and Recently Administered Medications Times are shown in MED SURG RN. Scheduled Medication Order 06/01/2024 06/02/2024 06/03/2024 diphenhydrAMINE [...] lumen documented in this encounter Care Teams Hydro Plant Technician Relationship Specialty Start Date End Date No Ref-Primary, Physician PCP - General 03/15/24 06/17/24 Elvira Ramseyc Medical Student 04/03/24 Case Samuel MD [address] [place] [address] 484, [address] [place] [address] Assigned Pediatric Specialist Provider 05/18/24 Juhi Benson, RN Specialty Technical Laboratory Asst Hematology & Oncology 05/29/24 documented as of this encounter
--- OUTSIDE RECORDS SUMMARY | 2024-07-03 20:33 | XMS_ITS | Encounter Summary ---
Author Organization [place] Address [address] [place] [address]. [place] [address] Care Team Providers Care Cinder Block Mason Name Role Phone No Ref-Primary, Physician Primary Care Provider Mor Ramsey Unavailable Unavailable Case Samuel MD Unavailable [phone] Juhi Benson RN Unavailable Unavailable Reason for Visit * Reason Comments Infusion IVF + pain medicatio n Encounter Details Date Type Department Care Team (Late st Contact Info) Description 06/07/2024 1:30 PM WIRING TECHNICIAN Infusion Therapy Visit [facility] [address] [place] [address] Case Samuel MD [address] [place] [address] 484, [address] [place], [place] [phone] Fever (Primary Dx); Sickle cell pain crisis [...] on file Legal Sex Female 8:25 AM WIRING TECHNICIAN Gender Identity Not on file Sexual Orientation Not on file documented as of this encounter Last Filed Vital Signs Vital Sign Reading Time Taken Comments Blood Pressure 119/76 06/07/2024 3:43 PM WIRING TECHNICIAN Pulse 72 06/07/2024 3:43 PM WIRING TECHNICIAN Temperature 37 C (98.6 F) 06/07/2024 1:35 PM WIRING TECHNICIAN Respiratory Rate 16 06/07/2024 1:35 PM WIRING TECHNICIAN Oxygen Saturation 99% 06/07/2024 3:43 PM WIRING TECHNICIAN Inhaled Oxygen Concentration - - Weight - - Height - - Body Mass Index - - documented in this encounter Patient Instructions * Patient Instructions* Tyson Hess RN - 06/07/2024 1:30 PM WIRING TECHNICIAN Dear Gianna Hernández Thank you for choosing [facility] ([facility]) for your infusion. The following information is a summary of our appointment as well as important reminders. If you have any questions on your upcoming Specialty Infusion appointments, please call scheduling at [phone]. It was a pleasure taking care of you today. Sincerely, [facility] [address] [place] [address] NG TECHNICIAN documented in this encounter Progress Notes * Tyson Hess RN - 06/07/2024 1:30 PM CST Infusion Nursing Note: Gianna Hernández presents today for IV infusion; IVF + pain medication. Patient seen by provider today: No Franchise Business Consultant present during visit today: Not Applicable. Note: [...] self. Departure Mode: Ambulatory. Tyson Hess RN NG TECHNICIAN documented in this encounter Plan of Treatment Upcoming Encounters Date Type Department Care Team (Late st Contact Info) Description 07/04/2024 9:00 AM CDT [facility] [address] [place] [address] Case Samuel MD [address] [place] [address] 484, [address] [place] [address] 07/06/2024 8:00 AM CDT Appointment [facility] [place] [address] [place] [phone] Case Samuel MD [address] [facility] 484, [address] [place], [place] [address] 07/10/2024 11:30 AM CDT [facility] [address] [place] [address] Case Samuel MD [address] [facility] 484, [address] [place], [place] [address] documented as of this encounter Goals Goal Patient Goal Type Associated Problems Recent Progress Patient-Stated? Author Pain Management General On track( 025 12:40 PM WIRING TECHNICIAN) Yes Juhi Benson, RN Note: Goal [...] AND PLATELET MORPHOLOGY Routine 06/07/2024 1:15 PM WIRING TECHNICIAN Sickle cell pain crisis (H) CBC WITH PLATELETS AND DIFFERENTIAL Routine 06/07/2024 1:15 PM WIRING TECHNICIAN Sickle cell pain crisis (H) INFLUENZA A/B, RSV AND SARS-COV2 PCR Routine 06/07/2024 1:15 PM WIRING TECHNICIAN Fever CBC WITH PLATELETS & DIFFERENTIAL Routine 06/07/2024 1:15 PM WIRING TECHNICIAN Sickle cell pain crisis (H) BASIC METABOLIC PANEL Routine 06/07/2024 1:15 PM WIRING TECHNICIAN Sickle cell pain crisis (H) documented in this encounter Results * (ABNORMAL) RBC and Platelet Morphology (06/07/2024 1:15 PM WIRING TECHNICIAN) Pathologist [facility] RBC Morphology Confirmed RBC Indices 06/07/2024 2:06 PM WIRING TECHNICIAN [facility] Platelet Assessment Automated Count Confirmed. Platelet morphology is normal. Automated Count Confirmed. Platelet morphology is normal. 06/07/2024 2:06 PM WIRING TECHNICIAN [facility] [place] Bodies Present(A) None Seen 06/07/2024 2:06 PM WIRING TECHNICIAN [facility] Polychromasia Slight(A) None Seen 06/07/2024 2:06 PM WIRING TECHNICIAN [facility] Sickle Cells Moderate(A) None Seen 06/07/2024 2:06 PM WIRING TECHNICIAN [facility] Target Cells Slight(A) None Seen 06/07/2024 2:06 PM WIRING TECHNICIAN [facility] Teardrop Cells Slight(A) None Seen 06/07/2024 2:06 PM WIRING TECHNICIAN [facility] Blood BLOOD SPECIMEN / Unknown IVAD (Port) / Unknown 06/07/2024 1:15 PM WIRING TECHNICIAN 06/07/2024 1:35 PM WIRING TECHNICIAN us Case Samuel MD LAB - BLOOD ORDERABLES Fi nal Result [facility] [place] [address] [facility] 1st [place] [address] * Influenza A/B, RSV and SARS-CoV2 PCR (COVID-19) Nasopharyngeal (06/07/2024 1:15 PM WIRING TECHNICIAN) Pathologist [facility] Influenza A PCR Negative Negative 06/07/2024 3:32 PM WIRING TECHNICIAN [facility] Influenza B PCR Negative Negative 06/07/2024 3:32 PM WIRING TECHNICIAN [facility] RSV PCR Negative Negative 06/07/2024 3:32 PM WIRING TECHNICIAN [facility] SARS CoV2 PCR Negative Negative 06/07/2024 3:32 PM WIRING TECHNICIAN [facility] Comment:NEGATIVE: SARS-CoV-2 (COVID-19) RNA not detected, presumed negative. Swab NASOPHARYNGEAL STRUCTURE / Unknown Non-blood Collection / Unknown 06/07/2024 1:15 PM WIRING TECHNICIAN 06/07/2024 1:36 PM WIRING TECHNICIAN Narrative [facility] - 06/07/2024 3:32 PM WIRING TECHNICIAN Testing was performed using the Xpert Xpress CoV2/Flu/RSV Assay on the [employer]pert Instrument. This test should be ordered for [...] management. This test was validated by the [facility]. These laboratories are certified under the Clinical Laboratory Improvement Amendments of 1988 (CLIA-88) as qualified to perfom high complexity laboratory testing. Case Samuel MD LAB - MICRO GENERAL ORDER SYD Final Result [facility] Inf. Diseases Diag. Lab [address] [facility], [address] [place] [address], [facility] * (ABNORMAL) CBC with platelets and differential (06/07/2024 1:15 PM WIRING TECHNICIAN) [facility] WBC Count 13.7(H) 4.0 - 11.0 10e3/uL 06/07/2024 2:06 PM WIRING TECHNICIAN [facility] RBC Count 2.80(L) 3.80 - 5.20 10e6/uL 06/07/2024 2:06 PM [facility] Hemoglobin 8.8(L) 11.7 - 15.7 g/dL 06/07/2024 2:06 PM [facility] Hematocrit 25.3(L) 35.0 - 47.0 % 06/07/2024 2:06 PM [facility] MCV 90 78 - 100 fL 06/07/2024 2:06 PM [facility] MCH 31.4 26.5 - 33.0 pg 06/07/2024 2:06 PM [facility] MCHC 34.8 31.5 - 36.5 g/dL 06/07/2024 2:06 PM [facility] RDW 19.4(H) 10.0 - 15.0 % 06/07/2024 2:06 PM [facility] Platelet Count 516(H) 150 - 450 10e3/uL 06/07/2024 2:06 PM [facility] % Neutrophils 67 % 06/07/2024 2:06 PM [facility] % Lymphocytes 20 % 06/07/2024 2:06 PM [facility] % Monocytes 11 % 06/07/2024 2:06 PM [facility] % Eosinophils 1 % 06/07/2024 2:06 PM [facility] % Basophils 1 % 06/07/2024 2:06 PM [facility] % Immature Granulocytes 0 % 06/07/2024 2:06 PM [facility] NRBCs per 100 WBC 1(H) <1 /100 025 2:06 PM [facility] Absolute Neutrophils 9.2(H) 1.6 - 8.3 10e3/uL 06/07/2024 2:06 PM [facility] Absolute Lymphocytes 2.7 0.8 - 5.3 10e3/uL 06/07/2024 2:06 PM [facility] Absolute Monocytes 1.5(H) 0.0 - 1.3 10e3/uL 06/07/2024 2:06 PM [facility] Absolute Eosinophils 0.1 0.0 - 0.7 10e3/uL 06/07/2024 2:06 PM WIRING TECHNICIAN [facility] Absolute Basophils 0.2 0.0 - 0.2 10e3/uL 06/07/2024 2:06 PM WIRING TECHNICIAN [facility] Absolute Immature Granulocytes 0.1 <=0.4 10e3/uL 06/07/2024 2:06 PM WIRING TECHNICIAN [facility] Absolute NRBCs 0.1 10e3/uL 06/07/2024 2:06 PM [facility] Blood BLOOD SPECIMEN / Unknown IVAD (Port) / Unknown 06/07/2024 1:15 PM WIRING TECHNICIAN 06/07/2024 1:35 PM WIRING TECHNICIAN us Case Samuel MD LAB - BLOOD ORDERABLES Fi nal Result [facility] [place] [address] [facility] 1st [place] [address] * (ABNORMAL) Basic metabolic panel (06/07/2024 1:15 PM WIRING TECHNICIAN) Sodium 139 135 - 145 mmol/L 06/07/2024 2:11 PM [facility] Potassium 4.4 3.4 - 5.3 mmol/L 06/07/2024 2:11 PM [facility] Chloride 109(H) 98 - 107 mmol/L 06/07/2024 2:11 PM [facility] Carbon Dioxide (CO2) 22 22 - 29 mmol/L 06/07/2024 2:11 PM [facility] Anion Gap 8 7 - 15 mmol/L 06/07/2024 2:11 PM [facility] Urea Nitrogen 7.4 6.0 - 20.0 mg/dL 06/07/2024 2:11 PM [facility] Creatinine 0.66 0.51 - 0.95 mg/dL 06/07/2024 2:11 PM [facility] GFR Estimate >90 >60 mL/min/1.7 3m2 06/07/2024 2:11 PM [facility] Comment:eGFR calculated usin 2020 CKD-EPI equation. Calcium 9.3 8.8 - 10.4 mg/dL 06/07/2024 2:11 PM WIRING TECHNICIAN [facility] Glucose 98 70 - 99 mg/dL 06/07/2024 2:11 PM WIRING TECHNICIAN [facility] Blood BLOOD SPECIMEN / Unknown IVAD (Port) / Unknown 06/07/2024 1:15 PM WIRING TECHNICIAN 06/07/2024 1:35 PM WIRING TECHNICIAN us Case Samuel MD LAB - BLOOD ORDERABLES Fi nal Result [facility] [place] [address] [facility] 1st [place] [address] documented in this encounter Visit Diagnoses Diagnosis [...] pain crisis (H) $Given 06/07/2024 3:41 PM WIRING TECHNICIAN 5 mLs HYDROmorphone (DILAUDID) injection 2 mg 2 mg, Intravenous, EVERY 1 HOUR PRN, severe pain, moderate pain, Starting on Wed06/07/24 at 1309, For 3 dosesIndications:Sickle cell pain crisis (H) $Given 06/07/2024 3:28 PM WIRING TECHNICIAN 2 mg $Given 06/07/2024 2:30 PM WIRING TECHNICIAN 2 mg $Given 06/07/2024 1:37 PM WIRING TECHNICIAN 2 mg lactated ringers BOLUS 1,000 mL Intravenous, 1,000 mL, ONCE, at 500 mL/hr, Administer over 2 Hours, On Wed06/07/24 at 1315, For 1 doseIndications:Sickle cell pain crisis (H) $New Bag 06/07/2024 1:37 PM WIRING TECHNICIAN 1,000 mLs 500 mL/hr documented in this encounter Additional Health Concerns Infection Onset Date Last Indicated Resolved Time Rule Out COVID-19 06/07/2024 06/07/2024 06/07/2024 3:32 PM WIRING TECHNICIAN documented as of this encounter Care Teams Cinder Block Mason Relationship Specialty Start Date End Date No Ref-Primary, Physician PCP - General 03/15/24 06/17/24 Mor Ramsey Medical Student 04/03/24 Case Samuel MD [address] [place] [address] 484, [address] [place] [address] Assigned Pediatric Specialist Provider 05/18/24 Juhi Benson, RN Specialty Information Architect Hematology & Oncology 05/29/24 documented as of this encounter
--- OUTSIDE RECORDS SUMMARY | 2024-07-03 20:33 | XMS_ITS | Encounter Summary ---
Author Organization [facility] Address [address] [place] [address]. [place] [address] Care Team Providers Care Gym Instructor Name Role Phone Roxy Mor Unavailable Unavailable Case Samuel MD Unavailable [phone] Juhi Benson RN Unavailable Unavailable Veronica Joseph MD Primary Care Provider [phone] Encounter Details Date Type Department Care Team [...] on file Legal Sex Female 8:25 AM SPACECRAFT SYSTEMS ENGINEER Gender Identity Not on file Sexual Orientation Not on file documented as of this encounter Plan of Treatment Upcoming Encounters Date Type Department Care Team (Late st Contact Info) Description 07/04/2024 9:00 AM CDT Lab [facility] Cancer [address] [address] Case Samuel MD [address] [place], [place] [address], ROOM [address] [address] 07/06/2024 8:00 AM CDT Appointment [facility] Advanced Treatment [address] [phone] Case Samuel MD [address] [place] [address], ROOM [address] [address] 07/10/2024 11:30 AM CDT Oncology Visit [facility] Cancer [address] [address] Case Samuel MD [address] [place], [place] [address], ROOM [address] [address] documented as of this encounter Goals Goal Patient Goal Type Associated Problems Recent Progress Patient-Stated? Author Pain Management General On track( 025 12:40 PM SPACECRAFT SYSTEMS ENGINEER) Yes Juhi Benson, RN Note: [...] on filedocumented in this encounter Care Teams Gym Instructor Relationship Specialty Start Date End Date Veronica Joseph MD [address] [place] [address] PCP - General Family Medicine 06/18/24 Mor Ramsey Medical Student 04/03/24 Case Samuel MD [address] [place] [address], RO[address] [place] [address] Assigned Pediatric Specialist Provider 05/18/24 Juhi Benson, RN Specialty Tool Salvage Worker Hematology & Oncology 05/29/24 documented as of this encounter
--- OUTSIDE RECORDS SUMMARY | 2024-07-03 20:33 | XMS_ITS | Encounter Summary ---
Author Organization [facility] Address [address] [place] [address]. [place] [address] Care Team Providers Care Gang Rider Name Role Phone No Ref-Primary, Physician Primary Care Provider Mor Ramsey Unavailable Unavailable Case Samuel MD Unavailable [phone] Juhi Benson RN Unavailable Unavailable Encounter Details [...] file Legal Sex Female 8:25 AM CONTENT ANALYST Gender Identity Not on file Sexual Orientation Not on file documented as of this encounter Plan of Treatment Upcoming Encounters Date Type Department Care Team (Late st Contact Info) Description 07/04/2024 9:00 AM CDT Lab [facility] Cancer [address] [address] Case Samuel MD [address] [place], [place] [address], ROOM [address] [address] 07/06/2024 8:00 AM CDT Appointment [facility] Advanced Treatment [address] [phone] Case Samuel MD [address] [place] [address], ROOM [address] [address] 07/10/2024 11:30 AM CDT Oncology Visit [facility] Cancer [address] [address] Case Samuel MD [address] [place] [address], ROOM [address] [address] documented as of this encounter Goals Goal Patient Goal Type Associated Problems Recent Progress Patient-Stated? Author Pain Management General On track( 025 12:40 PM CONTENT ANALYST) Yes Juhi Benson, RN Note: Goal Statement: [...] Out COVID-19 06/07/2024 06/07/2024 06/07/2024 12:50 PM CONTENT ANALYST Rule Out COVID-19 06/07/2024 06/07/2024 06/07/2024 3:32 PM CONTENT ANALYST documented as of this encounter Care Teams Gang Rider Relationship Specialty Start Date End Date No Ref-Primary, Physician PCP - General 03/15/24 06/17/24 Elvira Ramseyc Medical Student 04/03/24 Case Samuel MD [address] [place] [address], [address] [place] [address] Assigned Pediatric Specialist Provider 05/18/24 Juhi Benson, RN Specialty Acquisitions Logistics Analyst Hematology & Oncology 05/29/24 documented as of this encounter
--- OUTSIDE RECORDS SUMMARY | 2024-07-03 20:33 | XMS_ITS | Encounter Summary ---
Author Organization [facility] Address [address] [place] [address]. [place] [address] Care Team Providers Care Automotive Machinist Name Role Phone No Ref-Primary, Physician Primary Care Provider Mor Ramsey Unavailable Unavailable Case Samuel MD Unavailable [phone] Juhi Benson RN Unavailable Unavailable Reason for Visit * Reason Comments Sickle Cell Pain Crisis Encounter Details Date Type Department Care Team (Late st Contact Info) Description 06/07/2024 10:00 AM FOREST TECHNOLOGY PROFESSOR - 06/07/2024 10:45 AM [facility] Emergency [facility] Emergency Room [facility] [place] [address] Bernabe Farley MD [facility] [address] [place] [address] Chest pain, unspecified type; Fever, unspecified fever [...] on file Legal Sex Female 8:25 AM FOREST TECHNOLOGY PROFESSOR Gender Identity Not on file Sexual Orientation Not on file documented as of this encounter Last Filed Vital Signs Vital Sign Reading Time Taken Comments Blood Pressure 108/63 06/07/2024 9:59 AM FOREST TECHNOLOGY PROFESSOR Pulse 84 06/07/2024 9:59 AM FOREST TECHNOLOGY PROFESSOR Temperature 36.6 C (97.9 F) 06/07/2024 9:59 AM FOREST TECHNOLOGY PROFESSOR Respiratory Rate 19 06/07/2024 9:59 AM FOREST TECHNOLOGY PROFESSOR Oxygen Saturation 100% 06/07/2024 9:59 AM FOREST TECHNOLOGY PROFESSOR Inhaled Oxygen Concentration - - Weight 52.2 kg (115 lb) 06/07/2024 9:59 AM FOREST TECHNOLOGY PROFESSOR Height - - Body Mass Index 21.73 06/06/2024 9:33 AM FOREST TECHNOLOGY PROFESSOR documented in this encounter Medications at Time [...] 05/01/2024 naloxone (NARCAN) 4 MG/0.1ML nasal spray Milton 1 spray (4 mg) into one nostril [...] did not want to wait for a bulk truck driver so she would like to leave at this time. MD and charge informed. ST TECHNOLOGY PROFESSOR * Bernabe Farley MD - 06/07/2024 10:04 [...] she unfortunately left by car as the bulk truck driver after stating to staff that [...] Additional ED Course timestamps entered by medical transport specialist: 10:12 AM I met with the [...] at this time. Per Chart Review: 06/06/24, [facility] ED: Patient presented for sickle cell [...] our physician who is working with her software performance engineer for the care plan. Per the patient [...] she shows signs of opiate overdose. Our litigation secretary Hattie and our senior security analyst Jagdeep both just saw the patient to get into the bulk truck driver seat and drive away after [...] my direction. Bernabe Farley M.D. Emergency Medicine [facility] EMERGENCY ROOM [address] [facility] [id number] Dept: [phone] Bernabe Farley MD 06/07/[address]NOLOGY PROFESSOR * Yanely Avendano RN - 06/07/2024 10:04 AM CST Pt here in sickle cell crisis for the 3rd day. Yesterday she received a lot of IV dilaudid and then drove home after told not to. Upon arrival here she repeatedly told this contract technical writer she was dropped off but after reviewing the security camera she is clearly driving in and getting out of the bulk truck driver seat. Provider notified. Reports chest pain today. Last dose of oral was 2 hours ago. Triage Assessment (Adult) Row Name 06/07/24 0959 Triage Assessment Airway WDL WDL Respiratory WDL Respiratory WDL WDL Skin Circulation/Temperature WDL Skin Circulation/Temperature WDL WDL Cardiac WDL Cardiac WDL WDL Peripheral/Neurovascular WDL Peripheral Neurovascular WDL WDL Cognitive/Neuro/Behavioral WDL Cognitive/Neuro/Behavioral WDL WDL ST TECHNOLOGY PROFESSOR documented in this encounter Plan of Treatment Upcoming Encounters Date Type Department Care Team (Late st Contact Info) Description 07/04/2024 9:[address] [facility] [address] [place] [address] Case Samuel MD [address] [place], [place] [address], [address] [place], [place] [address] 07/06/2024 8:[address] [facility] [place] [address] [place] [phone] Case Samuel MD [address] [place] [address], [address] [place], [place] [address] 07/10/2024 11:30 AM CDT Oncology Visit [facility] [address] [place] [address] Case Samuel MD [address] [facility] 484, [address] [place], [place] [address] documented as of this encounter Goals Goal Patient Goal Type Associated Problems Recent Progress Patient-Stated? Author Pain Management General On track( 025 12:40 PM FOREST TECHNOLOGY PROFESSOR) Yes Juhi Benson, SOFIA Note: Goal [...] Recently Administered Medications Times are shown in FOREST TECHNOLOGY PROFESSOR. Scheduled Medication Order 06/05/2024 06/06/2024 06/07/2024 heparin [...] Out COVID-19 06/07/2024 06/07/2024 06/07/2024 12:50 PM FOREST TECHNOLOGY PROFESSOR documented as of this encounter Care Teams Automotive Machinist Relationship Specialty Start Date End Date No Ref-Primary, Physician PCP - General 03/15/24 06/17/24 Roxy Mor Medical Student 04/03/24 Case Samuel MD [address] [place] [address], [address] [place] [address] Assigned Pediatric Specialist Provider 05/18/24 Juhi Benson, RN Specialty Administrator Health Care Facility Hematology & Oncology 05/29/24 documented as of this encounter
--- OUTSIDE RECORDS SUMMARY | 2024-07-03 20:33 | XMS_ITS | Encounter Summary ---
Author Organization [facility] Address [address] [place] [address] Care Team Providers Care Welt Butter Hand Name Role Phone No Ref-Primary, Physician Primary Care Provider Mor Ramsey Unavailable Unavailable Case Samuel MD Unavailable [phone] Juhi Benson RN Unavailable Unavailable Reason for Visit * Reason Comments Sickle Cell Pain Crisis Encounter Details Date Type Department Care Team (Late st Contact Info) Description 06/06/2024 9:41 AM MOTION PICTURE SET GRIP - 06/06/2024 1:29 PM [facility] Emergency [facility] Emergency Room [facility] [place] [address] Marilia Summers MD [address] [place] [address] Sickle cell pain crisis (H) Discharge Disposition: [...] on file Legal Sex Female 8:25 AM MOTION PICTURE SET GRIP Gender Identity Not on file Sexual Orientation Not on file documented as of this encounter Last Filed Vital Signs Vital Sign Reading Time Taken Comments Blood Pressure 122/82 06/06/2024 1:00 PM MOTION PICTURE SET GRIP Pulse 77 06/06/2024 1:00 PM MOTION PICTURE SET GRIP Temperature 36.9 C (98.5 F) 06/06/2024 9:33 AM MOTION PICTURE SET GRIP Respiratory Rate 17 06/06/2024 9:33 AM MOTION PICTURE SET GRIP Oxygen Saturation 98% 06/06/2024 1:00 PM MOTION PICTURE SET GRIP Inhaled Oxygen Concentration - - Weight 52.2 kg (115 lb) 06/06/2024 9:33 AM MOTION PICTURE SET GRIP Height 154.9 cm (5' 1) 06/06/2024 9:33 AM MOTION PICTURE SET GRIP Body Mass Index 21.73 06/06/2024 9:33 AM MOTION PICTURE SET GRIP documented in this encounter Discharge Instructions * Discharge Instructions* Marilia Summers MD - 06/06/2024 12:48 PM MOTION PICTURE SET GRIP With the amount of hydromorphone that you [...] work on your care plan with your accounts payable bookkeeper to see if they would be agreeable to getting you an appointment with pain clinic even while you are waiting to start the plasmapheresis to work a bit more on a home pain regimen for you. Continue to follow your care plan discussed with your accounts payable bookkeeper to treat your sickle cell pain crisis. Your next dose of dilaudid should not be before 2:30 pm. ON PICTURE SET GRIP ON PICTURE SET GRIP * Attachments The following attachments cannot be sent through Care Everywhere. * Naloxone Nasal Eugene (NALOXONE SPRAY - NASAL) (Central African) * Drug Overdose: Opioid (Central African) documented in this encounter Medications at Time [...] 05/01/2024 naloxone (NARCAN) 4 MG/0.1ML nasal spray Eugene 1 spray (4 mg) into one nostril [...] WDL Cognitive/Neuro/Behavioral WDL Cognitive/Neuro/Behavioral WDL WDL ON PICTURE SET GRIP * Marilia Summers MD - 06/06/2024 9:34 [...] our physician who is working with her accounts payable bookkeeper for the care plan. Per the patient [...] plans and they will talk with her accounts payable bookkeeper about the request for the patient to [...] do now have a major issue. Our guidance secretary Hattie and our industrial security analyst Augusto just saw the patient to get into the pharmacy delivery driver seat and drive away after being told specifically that she cannot drive and that she had told us that her significant other was driving in to pick herup. 1328 Our security did have her on video (as internet marketing analyst concerned she did not get into a [...] Prescriptions NALOXONE (NARCAN) 4 MG/0.1ML NASAL SPRAY Eugene 1 spray (4 mg) into one nostril [...] has been evaluated multiple times since in [place] and although she has a remote history [...] suspect she was slightly dehydrated. [facility] Documentation Medical Decision Making [...] with other provider:Did you involve another provider (sr. consultant, , pharmacy, etc.)?: No Discharge.continue current meds The creation of this record is based on the scribe???s observations of the work being performed by Alex Ashby and the provider???s statements to them. This document has been checked and approved byMD Marilia Martinez MD Emergency Medicine [facility] EMERGENCY ROOM Marilia Summers MD 06/06/24 1254 Marilia Summers MD 06/06/24 1257 Marilia Summers MD 06/06/24 1330 ON PICTURE SET GRIP ON PICTURE SET GRIP ON PICTURE SET GRIP documented in this encounter Plan of Treatment Upcoming Encounters Date Type Department Care Team (Late st Contact Info) Description 07/04/2024 9:[address] [facility] [address] [place] [address] Case Samuel MD [address] [place] [address], [address] [place], [place] [address] 07/06/2024 8:00 AM CDT Appointment [facility] [place] [address] [place] [phone] Case Samuel MD [address] [facility] 484, [address] [place] [address] 07/10/2024 11:30 AM CDT [facility] [address] [place] [phone] Case Samuel MD [address] [facility] 484, RO[address] [place], [place] [address] documented as of this encounter Goals Goal Patient Goal Type Associated Problems Recent Progress Patient-Stated? Author Pain Management General On track( 025 12:40 PM MOTION PICTURE SET GRIP) Yes Juhi Benson RN Note: Goal Statement: [...] For 1 dose $Given 06/06/2024 10:22 AM MOTION PICTURE SET GRIP 50 mg heparin lock flush 10 unit/mL [...] each port lumen $Given 06/06/2024 1:13 PM MOTION PICTURE SET GRIP 5 mLs HYDROmorphone (DILAUDID) injection 2 mg 2 mg, Intravenous, EVERY 1 HOUR PRN, moderate pain, Starting on Wed06/06/24 at 0958, For 2 doses $Given 06/06/2024 11:31 AM MOTION PICTURE SET GRIP 2 mg $Given 06/06/2024 10:22 AM MOTION PICTURE SET GRIP 1 mg HYDROmorphone (DILAUDID) injection 2 mg 2 mg, Intravenous, ONCE, On Wed06/06/24 at 1300, For 1 dose $Given 06/06/2024 12:57 PM MOTION PICTURE SET GRIP 2 mg lactated ringers BOLUS 1,000 mL Intravenous, 1,000 mL, ONCE, On Wed06/06/24 at 1000, For 1 dose $New Bag 06/06/2024 10:12 AM MOTION PICTURE SET GRIP 1,000 mLs sodium chloride (PF) 0.9% PF [...] Recently Administered Medications Times are shown in MOTION PICTURE SET GRIP. Scheduled Medication Order 06/04/2024 06/05/2024 06/06/2024 heparin [...] lumen documented in this encounter Care Teams Welt Butter Hand Relationship Specialty Start Date End Date No Ref-Primary, Physician PCP - General 03/15/24 06/17/24 Mor Ramsey Medical Student 04/03/24 Case Samuel MD [address] [place] [address], RO[address] [place] [address] Assigned Pediatric Specialist Provider 05/18/24 Juhi Benson, SOFIA Specialty Auricular Detoxification Specialist Hematology & Oncology 05/29/24 documented as of this encounter
--- OUTSIDE RECORDS SUMMARY | 2024-07-03 20:33 | XMS_ITS | Encounter Summary ---
Author Organization [facility] Address [address] [place] [address]. [place] [address] Care Team Providers Care Accounting Manager Name Role Phone No Ref-Primary, Physician Primary Care Provider Mor Ramsey Unavailable Unavailable Case Samuel MD Unavailable [phone] Juhi Benson RN Unavailable Unavailable Encounter Details [...] file Legal Sex Female 8:25 AM MEDIA SERVICES COORDINATOR Gender Identity Not on file Sexual Orientation Not on file documented as of this encounter Plan of Treatment Upcoming Encounters Date Type Department Care Team (Late st Contact Info) Description 07/04/2024 9:00 AM CDT Lab [facility] Cancer [address] [address] Case Samuel MD [address] [place], [place] [address], ROOM [address] [address] 07/06/2024 8:00 AM CDT Appointment [facility] Advanced Treatment [address] [phone] Case Samuel MD [address] [place], [place] [address], ROOM [address] [address] 07/10/2024 11:30 AM CDT Oncology Visit [facility] Cancer [address] [address] Case Samuel MD [address] [place] [address], ROOM [address] [address] documented as of this encounter Goals Goal Patient Goal Type Associated Problems Recent Progress Patient-Stated? Author Pain Management General On track( 025 12:40 PM MEDIA SERVICES COORDINATOR) Yes Juhi Benson, RN Note: Goal [...] filedocumented in this encounter Care Teams Accounting Manager Relationship Specialty Start Date End Date No Ref-Primary, Physician PCP - General 03/15/24 06/17/24 Mor Ramsey Medical Student 04/03/24 Case Samuel MD [address] [place] [address], [address] [place] [address] Assigned Pediatric Specialist Provider 05/18/24 Juhi Benson, RN Specialty Catheter Builder Hematology & Oncology 05/29/24 documented as of this encounter
--- OUTSIDE RECORDS SUMMARY | 2024-07-03 20:33 | XMS_ITS | Encounter Summary ---
Author Organization [facility] Address [address] [place] [address]. [place] [address] Care Team Providers Care Restaurant Crew Name Role Phone No Ref-Primary, Physician Primary Care Provider Mor Ramsey Unavailable Unavailable Case Samuel MD Unavailable [phone] Juhi Benson RN Unavailable Unavailable Encounter Details [...] on file Legal Sex Female 8:25 AM LINING MAKER HAND Gender Identity Not on file Sexual Orientation Not on file documented as of this encounter Plan of Treatment Upcoming Encounters Date Type Department Care Team (Late st Contact Info) Description 07/04/2024 9:00 AM CDT Lab [facility] Cancer [address] [address] Case Samuel MD [address] [place], [place] [address], ROOM [address] [address] 07/06/2024 8:00 AM CDT Appointment [facility] Advanced Treatment [address] [phone] Case Samuel MD [address] [place], [place] [address], ROOM [address] [address] 07/10/2024 11:30 AM CDT Oncology Visit [facility] Cancer [address] [address] Case Samuel MD [address] [place], [place] [address], ROOM [address] [address] documented as of this encounter Goals Goal Patient Goal Type Associated Problems Recent Progress Patient-Stated? Author Pain Management General On track( 025 12:40 PM LINING MAKER HAND) Yes Juhi Benson, RN Note: Goal Statement: [...] filedocumented in this encounter Care Teams Restaurant Crew Relationship Specialty Start Date End Date No Ref-Primary, Physician PCP - General 03/15/24 06/17/24 Mor Ramsey Medical Student 04/03/24 Case Samuel MD [address] [place] [address], [address] [place] [address] Assigned Pediatric Specialist Provider 05/18/24 Juhi Benson, RN Specialty Building Insulation Supervisor Hematology & Oncology 05/29/24 documented as of this encounter
--- OUTSIDE RECORDS SUMMARY | 2024-07-03 20:33 | XMS_ITS | Encounter Summary ---
Author Organization [facility] Address [address] [place] [address]. [place] [address] Care Team Providers Care House Builder Name Role Phone Roxy Mor Unavailable Unavailable Case Samuel MD Unavailable [phone] Juhi Benson RN Unavailable Unavailable Veronica Joseph MD Primary Care Provider [phone] Encounter Details Date Type Department Care Team [...] on file Legal Sex Female 8:25 AM TERRITORY SALES CONSULTANT Gender Identity Not on file Sexual Orientation Not on file documented as of this encounter Plan of Treatment Upcoming Encounters Date Type Department Care Team (Late st Contact Info) Description 07/04/2024 9:00 AM CDT Lab [facility] [address] [address] Case Samuel MD [address] [place], [place] [address], RO[address] [address] 07/06/2024 8:00 AM CDT Appointment [facility] Advanced Treatment [address] [phone] Case Samuel MD [address] [place], [place] [address], RO[address] [address] 07/10/2024 11:30 AM CDT Oncology Visit [facility] [address] [address] Case Samuel MD [address] [place], [place] [address], RO[address] [address] documented as of this encounter Goals Goal Patient Goal Type Associated Problems Recent Progress Patient-Stated? Author Pain Management General On track( 025 12:40 PM TERRITORY SALES CONSULTANT) Yes Juhi Benson, RN Note: Goal [...] on filedocumented in this encounter Care Teams House Builder Relationship Specialty Start Date End Date Veronica Joseph MD [address] [place] [address] PCP - General Family Medicine 06/18/24 Mor Ramsey Medical Student 04/03/24 Case Samuel MD [address] [place] [address] 484, RO[address] [place] [address] Assigned Pediatric Specialist Provider 05/18/24 Juhi Benson, RN Specialty Central Supply Supervisor Hematology & Oncology 05/29/24 documented as of this encounter
--- OUTSIDE RECORDS SUMMARY | 2024-07-03 20:33 | XMS_ITS | Encounter Summary ---
Author Organization [place] Address [address] [place] [address]. [place] [address] Care Team Providers Care Printmaker Name Role Phone No Ref-Primary, Physician Primary Care Provider Mor Ramsey Unavailable Unavailable Case Samuel MD Unavailable [phone] Juhi Benson RN Unavailable Unavailable Reason for Visit * Reason Comments Infusion * Auth/Cert Specialty Diagnoses / Procedures Referred By Shahid t Referred To Contact EMERGENCY MEDICINE Diagnoses Acute chest pain Sickle cell pain crisis (H) [facility] ED Emergency Department [address] [place] [address] Phone: tel: Referral ID Status Reason Start Date Expiration Date Visits Re quested Visits Authorized [id number] 1 1 Encounter Details Date Type Department Care Team ([facility] st Contact Info) Description 06/09/2024 11:30 AM WEIGHER BULKER Infusion Therapy Visit [facility] [address] [place] [address] Case Samuel MD [address] [facility] 484, [address] [place] [address] Sickle cell pain crisis (H) [...] on file Legal Sex Female 8:25 AM WEIGHER BULKER Gender Identity Not on file Sexual Orientation Not on file documented as of this encounter Last Filed Vital Signs Vital Sign Reading Time Taken Comments Blood Pressure 123/75 06/09/2024 11:45 AM WEIGHER BULKER Pulse 87 06/09/2024 11:45 AM WEIGHER BULKER Temperature 37 C (98.6 F) 06/09/2024 11:45 AM WEIGHER BULKER Respiratory Rate 16 06/09/2024 11:45 AM WEIGHER BULKER Oxygen Saturation 100% 06/09/2024 11:45 AM WEIGHER BULKER Inhaled Oxygen Concentration - - Weight - - Height - - Body Mass Index - - documented in this encounter Progress Notes * Lynne Camacho, RN - 06/09/2024 11:30 AM CST Infusion Nursing Note: Gianna Hernández presents today for IV fluids + Dilaudid. Patient seen by provider today: No Suit Maker present during visit today: Not Applicable. Note: Rating pain at an 8 out of 10 upon arrival. Has a jitney driver. Intravenous Access: Implanted Port. Treatment Conditions: [...] all questions answered. AVS to patient via Algae[employer]. Patient will return 06/13 for next appointment. Patient discharged in stable condition accompanied by: self and boyfriend. Departure Mode: Ambulatory. Lynne Camacho RN HER BULKER documented in this encounter Plan of Treatment Upcoming Encounters Date Type Department Care Team (Late st Contact Info) Description 07/04/2024 9:00 AM CDT Lab [facility] Cancer [address] [address] Case Samuel MD [address] [place] [address], ROOM [address] [address] 07/06/2024 8:00 AM CDT Appointment [facility] [address] [phone] Case Samuel MD [address] [place], [place] [address], [address] [place], [place] [address] 07/10/2024 11:30 AM CDT Oncology Visit [facility] Cancer [address] [phone] Case Samuel MD [address] [place], [place] [address], [address] [place] [address] documented as of this encounter Goals Goal Patient Goal Type Associated Problems Recent Progress Patient-Stated? Author Pain Management General On track( 025 12:40 PM WEIGHER BULKER) Yes Juhi Benson, RN Note: Goal Statement: [...] pain crisis (H) $Given 06/09/2024 2:03 PM WEIGHER BULKER 5 mLs hydromorphone (DILAUDID) injection 2 mg 2 mg, Intravenous, EVERY 1 HOUR PRN, severe pain, moderate pain, Starting on Wed06/09/24 at 1111, For 3 dosesIndications:Sickle cell pain crisis (H) $Given 06/09/2024 1:58 PM WEIGHER BULKER 2 mg $Given 06/09/2024 12:52 PM WEIGHER BULKER 2 mg $Given 06/09/2024 11:53 AM WEIGHER BULKER 2 mg lactated ringers BOLUS 1,000 mL Intravenous, 1,000 mL, ONCE, at 500 mL/hr, Administer over 2 Hours, On Wed06/09/24 at 1115, For 1 doseIndications:Sickle cell pain crisis (H) $New Bag 06/09/2024 11:45 AM WEIGHER BULKER 1,000 mLs 500 mL/hr sodium chloride (PF) [...] pain crisis (H) $Given 06/09/2024 11:45 AM WEIGHER BULKER 20 mLs documented in this encounter Care Teams Printmaker Relationship Specialty Start Date End Date No Ref-Primary, Physician PCP - General 03/15/24 06/17/24 Mor Ramsey Medical Student 04/03/24 Case Samuel MD [address] [place] [address], [address] [place] [address] Assigned Pediatric Specialist Provider 05/18/24 Juhi Benson, RN Specialty Infrastructure Consultant Hematology & Oncology 05/29/24 documented as of this encounter
[2024-07-03 20:34] VITALS: BP 112/71; PULSE 94; RESP 20; TEMP 36.8; O2SAT 96; BMI 19.2
--- OUTSIDE RECORDS SUMMARY | 2024-07-03 20:34 | XMS_ITS | Encounter Summary ---
Author Organization [place] Address [address] [place] [address] Care Team Providers Care Soil Checker Name Role Phone No Ref-Primary, Physician Primary Care Provider Mor Ramsey Unavailable Unavailable Case Samuel MD Unavailable [phone] Juhi Benson RN Unavailable Unavailable Reason for Visit * Reason Comments Sickle Cell Pain Crisis Encounter Details Date Type Department Care Team (Late st Contact Info) Description 06/11/2024 9:02 PM SERVICE UNIT OPERATOR OIL WELL - 06/12/2024 1:57 AM [facility] Emergency [facility] Emergency Room [address] [place] [address] Iliana Weber MD [facility] [address] [place] [address] Sickle cell pain crisis (H) Discharge Disposition: [...] on file Legal Sex Female 8:25 AM SERVICE UNIT OPERATOR OIL WELL Gender Identity Not on file Sexual Orientation Not on file documented as of this encounter Last Filed Vital Signs Vital Sign Reading Time Taken Comments Blood Pressure 118/75 06/12/2024 12:45 AM SERVICE UNIT OPERATOR OIL WELL Pulse 91 06/12/2024 12:45 AM SERVICE UNIT OPERATOR OIL WELL Temperature 36.5 C (97.7 F) 06/11/2024 8:58 PM SERVICE UNIT OPERATOR OIL WELL Respiratory Rate 19 06/12/2024 12:45 AM SERVICE UNIT OPERATOR OIL WELL Oxygen Saturation 95% 06/12/2024 12:45 AM SERVICE UNIT OPERATOR OIL WELL Inhaled Oxygen Concentration - - Weight 52.2 kg (115 lb) 06/11/2024 8:58 PM SERVICE UNIT OPERATOR OIL WELL Height 154.9 cm (5' 1) 06/11/2024 8:58 PM SERVICE UNIT OPERATOR OIL WELL Body Mass Index 21.73 06/11/2024 8:58 PM SERVICE UNIT OPERATOR OIL WELL documented in this encounter Discharge Instructions * [...] 05/01/2024 naloxone (NARCAN) 4 MG/0.1ML nasal spray [place] 1 spray (4 mg) into one nostril [...] CST Gave handoff report to Niki BLACK ICE UNIT OPERATOR OIL WELL * Shane Santos RN - 06/11/2024 10:00 PM CST Pt drove here as seen on security footage. Notified Dr Weber, and ok to proceed with treatment plan as ordered. Pt was advised to arrange a ride home. ICE UNIT OPERATOR OIL WELL * Iliana Weber MD - 06/11/2024 9:08 [...] get infusion therapies frequently. Last seen at [facility] 06/11/2024 early this morning about [...] other provider:Did you involve another provider (fashion consultant sales, MH, pharmacy, etc.)?: No Discharge. 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 Recently moved to [place] from [place], [place]. She is 1 [...] Integrated (03/28/2024) Received from [facility] Social Connections Do you often feel [...] dry. Normal skin color. Neuro: Speech clear. director business development grossly intact. Moves all extremities appropriately. Strength [...] Given normal axis. QTcis 453, QRS 78, MO 158. As compared to previous EKG from June 05, 2024 T wave slightly flattened in 3 and aVF but otherwise no significant change. I have independently reviewed and interpreted the EKG(s) documented above. Iliana Weber M.D. Emergency Medicine [facility] EMERGENCY ROOM [address] [facility] [address] Dept: [phone] Iliana Weber MD 06/12/24 0149 ICE UNIT OPERATOR OIL WELL * Jennifer Muse RN - 06/11/2024 8:56 [...] WDL WDL Cognitive/Neuro/Behavioral WDL Cognitive/Neuro/Behavioral WDL WDL ICE UNIT OPERATOR OIL WELL documented in this encounter Plan of Treatment Upcoming Encounters Date Type Department Care Team (Late st Contact Info) Description 07/04/2024 9:00 AM CDT Lab [facility] [address] [place] [address] Case Samuel MD [address] [place] [address], [address] [place] [address] 07/06/2024 8:00 AM CDT Appointment [facility] [place] [address] [place] [address] Case Samuel MD [address] [facility] 484, [address] [place], [place] [address] 07/10/2024 11:30 AM CDT Oncology Visit [facility] [address] [place] [phone] Case Samuel MD [address] [facility] 484, [address] [place], [place] [address] documented as of this encounter Goals Goal Patient Goal Type Associated Problems Recent Progress Patient-Stated? Author Pain Management General On track( 025 12:40 PM SERVICE UNIT OPERATOR OIL WELL) Yes Juhi Benson, RN Note: Goal Statement: [...] WITH MUSE [facility] STAT 06/11/2024 9:04 PM SERVICE UNIT OPERATOR OIL WELL documented in this encounter Results * ECG 12-LEAD WITH MUSE ([facility]) (06/11/2024 9:04 PM SERVICE UNIT OPERATOR OIL WELL) Systolic Blood Pressure mmHg RADIOLOGY RESULTS Diastolic Blood Pressure mmHg RADIOLOGY RESULTS Ventricular Rate 102 BPM RAD IOLOGY RESULTS Atrial Rate 102 BPM RADIOLOG Y RESULTS MO Interval 158 ms RADIOLOG Y RESULTS QRS Duration 78 ms RADIOLO GY RESULTS QT 348 ms RADIOLOGY RESULTS QTc 453 ms RADIOLOGY RESULTS P [place] 39 degrees RADIOLOGY RESULTS R AXIS 66 degrees RADIOLOGY RESULTS T [place] 33 degrees RADIOLOGY RESULTS Interpretation ECG Sinus tachycardia Nonspecific T wave abnormality Abnormal ECG When compared with ECG of 05-Jun-2024 11:40, No significant change was found Confirmed by SEE ED PROVIDER NOTE FOR, ECG INTERPRETATION (4000), online content editor SELMA GARRISON ([id number]) on 06/11/2024 9:05:27 PM RADIOLOGY RESULTS 06/11/2024 9:04 PM SERVICE UNIT OPERATOR OIL WELL 06/11/2024 9:05 PM SERVICE UNIT OPERATOR OIL WELL us Deshawn Arredondo MD ECG ORDERABLES Edited [...] For 1 dose $Given 06/12/2024 1:32 AM SERVICE UNIT OPERATOR OIL WELL 25 mg heparin lock flush 100 unit/mL [...] each port lumen $Given 06/12/2024 1:47 AM SERVICE UNIT OPERATOR OIL WELL 5 mLs HYDROmorphone (DILAUDID) injection 2 mg 2 mg, Intravenous, EVERY 1 HOUR PRN, moderate pain, Starting on Wed06/11/24 at 2103, For 3 doses $Given 06/12/2024 12:23 AM SERVICE UNIT OPERATOR OIL WELL 2 mg $Given 06/11/2024 11:16 PM SERVICE UNIT OPERATOR OIL WELL 2 mg $Given 06/11/2024 10:09 PM SERVICE UNIT OPERATOR OIL WELL 2 mg lactated ringers BOLUS 1,000 mL Intravenous, 1,000 mL, ONCE, at 500 mL/hr, Administer over 2 Hours, On 06/11/24 at 2130, For 1 dose $New Bag 06/11/2024 10:03 PM SERVICE UNIT OPERATOR OIL WELL 1,000 mLs 500 mL/hr ondansetron (ZOFRAN) injection 8 mg 8 mg, Intravenous, ONCE, Administer over 2-5 Minutes, On 06/11/24 at 2130, For 1 dose $Given 06/11/2024 10:08 PM SERVICE UNIT OPERATOR OIL WELL 8 mg sodium chloride (PF) 0.9% PF [...] Recently Administered Medications Times are shown in SERVICE UNIT OPERATOR OIL WELL. Scheduled Medication Order 06/10/2024 06/11/2024 06/12/2024 diphenhydrAMINE (BENADRYL) injection 25 mg (COMPLETED) 25 mg, Intravenous, ONCE, On Wed06/12/24 at 0130, For 1 dose 0132 ($Given - Provi nas: Guille Payan, SOFIA) heparin lock flush 100 unit/mL injection 5-10 [...] lumen 0147 ($Given - Provi nas: Guille Payan RN) lactated ringers BOLUS 1,000 mL (COMPLETED) Intravenous, 1,000 mL, ONCE, at 500 mL/hr, Administer over 2 Hours, On 06/11/24 at 2130, For 1 dose 2202 ($New Bag - Provider: Shane Santos RN) 0009 (Stopped - Provider: Guille Payan, SOFIA) ondansetron (ZOFRAN) injection 8 mg (COMPLETED) 8 mg, Intravenous, ONCE, Administer over 2-5 Minutes, On 06/11/24 at 2130, For 1 dose 2207 ($Given - Provider: Shane Santos RN) PRN Medication Order 06/10/2024 06/11/2024 06/12/2024 HYDROmorphone (DILAUDID) injection 2 mg (COMPLETED) 2 mg, Intravenous, EVERY 1 HOUR PRN, moderate pain, Starting on 06/11/24 at 2103, For 3 doses 2209 ($Given - Provider: Shane Santos RN)2316 ($Given - Provider: Guille Payan, RN) 0023 ($Given - Provider: Guille Payan RN) sodium chloride (PF) 0.9% PF flush 10-20 mL 10-20 mL, Intracatheter, EVERY 1 MIN PRN, line flush, post meds or blood draw, to flush each lumen of the CVC Implanted port, Starting on 06/11/24 at 2159, 10 mL per port lumen post IV meds; 20 mL per port lumen post post blood draw. documented in this encounter Care Teams Soil Checker Relationship Specialty Start Date End Date No Ref-Primary, Physician PCP - General 03/15/24 06/17/24 Mor Ramsey Medical Student 04/03/24 Case Samuel MD [address] [place] [address], [address] [place] [address] Assigned Pediatric Specialist Provider 05/18/24 Juhi Benson, SOFIA Specialty Hot Die Press Feeder Hematology & Oncology 05/29/24 documented as of this encounter
--- OUTSIDE RECORDS SUMMARY | 2024-07-03 20:34 | XMS_ITS | Encounter Summary ---
Author Organization [place] Address [address] [place] [address]. [place] [address] Care Team Providers Care Car Ferrier Name Role Phone Roxy Mor Unavailable Unavailable Case Samuel MD Unavailable [phone] Juhi Benson RN Unavailable Unavailable Veronica Joseph MD Primary Care Provider [phone] Encounter Details Date Type Department Care Team (Latest Contact Info) Description 07/02/2024 Travel Social History Tobacco Use Types Packs/Day [...] on file Legal Sex Female 8:25 AM CRUISE COUNSELOR Gender Identity Not on file Sexual Orientation Not on file documented as of this encounter Plan of Treatment Upcoming Encounters Date Type Department Care Team (Late st Contact Info) Description 07/04/2024 9:00 AM CDT Lab [facility] Cancer [address] [address] Case Samuel MD [address] [place], [place] [address], ROOM [address] [address] 07/06/2024 8:00 AM CDT Appointment [facility] Advanced Treatment [address] [phone] Case Samuel MD [address] [place], [place] [address], RO[address] [address] 07/10/2024 11:30 AM CDT Oncology Visit [facility] Cancer [address] [address] Case Samuel MD [address] [place], [place] [address], RO[address] [address] documented as of this encounter Goals Goal Patient Goal Type Associated Problems Recent Progress Patient-Stated? Author Pain Management General On track( 025 12:40 PM CRUISE COUNSELOR) Yes Juhi Benson, RN Note: Goal [...] on filedocumented in this encounter Care Teams Car Ferrier Relationship Specialty Start Date End Date Veronica Joseph MD [address] [place] [address] PCP - General Family Medicine 06/18/24 Mor Ramsey Medical Student 04/03/24 Case Samuel MD [address] [place] [address], [address] [place] [address] Assigned Pediatric Specialist Provider 05/18/24 Juhi Benson, RN Specialty Impregnator And Drier Helper Hematology & Oncology 05/29/24 documented as of this encounter
--- OUTSIDE RECORDS SUMMARY | 2024-07-03 20:34 | XMS_ITS | Encounter Summary ---
Author Organization [place] Address [address] [place] [address]. [place] [address] Care Team Providers Care Rrt Name Role Phone Roxy Mor Unavailable Unavailable Case Samuel MD Unavailable [phone] Juhi Benson RN Unavailable Unavailable Veronica Joseph MD Primary Care Provider [phone] Encounter Details Date Type Department Care Team [...] on file Legal Sex Female 8:25 AM VENEER GLUE SPREADER Gender Identity Not on file Sexual Orientation Not on file documented as of this encounter Plan of Treatment Upcoming Encounters Date Type Department Care Team (Late st Contact Info) Description 07/04/2024 9:00 AM CDT Lab [facility] Cancer [address] [phone] Case Samuel MD [address] [place], [place] [address], ROOM [address] [address] 07/06/2024 8:00 AM CDT Appointment [facility] Advanced Treatment [address] [phone] Case Samuel MD [address] [place] [address], RO[address] [address] 07/10/2024 11:30 AM CDT Oncology Visit [facility] Cancer [address] [phone] Case Samuel MD [address] [place] [address], RO[address] [address] documented as of this encounter Goals Goal Patient Goal Type Associated Problems Recent Progress Patient-Stated? Author Pain Management General On track( 025 12:40 PM VENEER GLUE SPREADER) Yes Juhi Benson, RN Note: Goal Statement: [...] on filedocumented in this encounter Care Teams Rrt Relationship Specialty Start Date End Date Veronica Joseph MD [address] [place] [address] PCP - General Family Medicine 06/18/24 Mor Ramsey Medical Student 04/03/24 Case Samuel MD [address] [place] [address], [address] [place] [address] Assigned Pediatric Specialist Provider 05/18/24 Juhi Benson, RN Specialty Strip Cleaner Hematology & Oncology 05/29/24 documented as of this encounter
--- OUTSIDE RECORDS SUMMARY | 2024-07-03 20:34 | XMS_ITS | Encounter Summary ---
Author Organization [place] Address [address] [place] [address]. [place] [address] Care Team Providers Care Double Back Operator Name Role Phone No Ref-Primary, Physician Primary Care Provider Mor Ramsey Unavailable Unavailable Case Samuel MD Unavailable [phone] Juhi Benson RN Unavailable Unavailable Encounter Details [...] file Legal Sex Female 8:25 AM LITIGATION DOCKET MANAGER Gender Identity Not on file Sexual Orientation Not on file documented as of this encounter Plan of Treatment Upcoming Encounters Date Type Department Care Team (Late st Contact Info) Description 07/04/2024 9:00 AM CDT Lab [facility] Cancer [address] [phone] Case Samuel MD [address] [place], [place] [address], ROOM [address] [address] 07/06/2024 8:00 AM CDT Appointment [facility] Advanced Treatment [address] [phone] Case Samuel MD [address] [place], [place] [address], RO[address] [address] 07/10/2024 11:30 AM CDT Oncology Visit [facility] Cancer [address] [phone] Case Samuel MD [address] [place], [place] [address], RO[address] [address] documented as of this encounter Goals Goal Patient Goal Type Associated Problems Recent Progress Patient-Stated? Author Pain Management General On track( 025 12:40 PM LITIGATION DOCKET MANAGER) Yes Juhi Benson, RN Note: Goal [...] on filedocumented in this encounter Care Teams Double Back Operator Relationship Specialty Start Date End Date No Ref-Primary, Physician PCP - General 03/15/24 06/17/24 Mor Ramsey Medical Student 04/03/24 Case Samuel MD [address] [place] [address], [address] [place] [address] Assigned Pediatric Specialist Provider 05/18/24 Juhi Benson, RN Specialty Edge Sawyer Hematology & Oncology 05/29/24 documented as of this encounter
--- OUTSIDE RECORDS SUMMARY | 2024-07-03 20:34 | XMS_ITS | Encounter Summary ---
Author Organization [place] Address [address] [place] [address]. [place] [address] Care Team Providers Care Academic Affairs Dean Name Role Phone No Ref-Primary, Physician Primary Care Provider Mor Ramsey Unavailable Unavailable Case Samuel MD Unavailable [phone] Juhi Benson RN Unavailable Unavailable Encounter Details [...] on file Legal Sex Female 8:25 AM UNDERGROUND TRUCK OPERATOR Gender Identity Not on file Sexual Orientation Not on file documented as of this encounter Plan of Treatment Upcoming Encounters Date Type Department Care Team (Late st Contact Info) Description 07/04/2024 9:00 AM CDT Lab [facility] Cancer [address] [phone] Case Samuel MD [address] [place], [place] [address], [address] [address] 07/06/2024 8:00 AM CDT Appointment [facility] Advanced Treatment [address] [phone] Case Samuel MD [address] [place], [place] [address], [address] [address] 07/10/2024 11:30 AM CDT Oncology Visit [facility] Cancer [address] [address] Case Samuel MD [address] [place], [place] [address], [address] [address] documented as of this encounter Goals Goal Patient Goal Type Associated Problems Recent Progress Patient-Stated? Author Pain Management General On track( 025 12:40 PM UNDERGROUND TRUCK OPERATOR) Yes Juhi Benson, RN Note: Goal [...] on filedocumented in this encounter Care Teams Academic Affairs Dean Relationship Specialty Start Date End Date No Ref-Primary, Physician PCP - General 03/15/24 06/17/24 Mor Ramsey Medical Student 04/03/24 Case Samuel MD [address] [place] [address], [address] [place] [address] Assigned Pediatric Specialist Provider 05/18/24 Juhi Benson, RN Specialty Atmospheric Technician Hematology & Oncology 05/29/24 documented as of this encounter
--- OUTSIDE RECORDS SUMMARY | 2024-07-03 20:34 | XMS_ITS | Encounter Summary ---
Author Organization [facility] Address [address] [place] [address]. 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 Call member services at your health plan with any benefit or coverage questions. T ENGINEERING MANAGER Reason for Visit * Reason Comments Sickle Cell Pain Crisis * Auth/Cert Specialty Diagnoses / Procedures Referred By Contkameron t Referred To Contact EMERGENCY MEDICINE Diagnoses Acute chest pain Sickle cell pain crisis (H) [facility] Emergency Department [address] [place] [address] Phone: tel: Referral ID Status Reason Start Date Expiration Date Visits Re quested Visits Authorized [id number] 1 1 Encounter Details Date Type Department Care Team (Latest Contact Info) Description 06/12/2024 6:38 PM PLANT ENGINEERING MANAGER - 06/15/2024 10:48 AM PLANT ENGINEERING MANAGER Hospital Encounter [facility] Emergency Department [address] [place] [phone] Abdelrahman Goddard MD [address] [place] [address] Andres Jain DO Duffy, Briar, MD [address] [facility] [address] [place] [address] 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) [...] file Legal Sex Female 8:25 AM PLANT ENGINEERING MANAGER Gender Identity Not on file Sexual Orientation Not on file documented as of this encounter Last Filed Vital Signs Vital Sign Reading Time Taken Comments Blood Pressure 99/64 06/15/2024 6:10 AM PLANT ENGINEERING MANAGER Pulse 75 06/15/2024 6:10 AM PLANT ENGINEERING MANAGER Temperature 36.7 C (98 F) 06/15/2024 6:10 AM PLANT ENGINEERING MANAGER Respiratory Rate 16 06/15/2024 6:10 AM PLANT ENGINEERING MANAGER Oxygen Saturation 100% 06/15/2024 6:10 AM PLANT ENGINEERING MANAGER Inhaled Oxygen Concentration - - Weight - - Height - - Body Mass Index - - documented in this encounter Discharge Summaries * Rl Elias MD - 06/15/2024 8:[address] [facility] Discharge Summary - Medicine & Pediatrics Date of Admission: 06/12/2024 Date of Discharge: 06/15/2024 Discharging Provider: Dr Rl Elias, Dr German Hall Discharge Service: Medicine Service, [facility] TE[facility] 1 Discharge Diagnoses Acute sickle [...] 5 day course of antibiotics - Continue STOCK CHASER hydroxyurea - Continue STOCK CHASER folic acid - Continue albuterol inhaler QID given in the ED - Patient should follow up with her PCP upon discharge in 2-3 weeks - Patient should restart pain plan as taking at home with PO hydromorphone 2 mg Q6H PRN for pain upon discharge #Anxiety #Nausea - Continue STOCK CHASER Fluoxetine 10 mg daily Consultations This Hospital Stay HEMATOLOGY ADULT IP CONSULT CARE MANAGEMENT / SOCIAL WORK IP CONSULT Code Status Full Code The patient was discussed with Dr. Hall. MD Oliver LANGLEY [address] [place] [address] EMERGENCY DEPARTMENT [address] [facility] [id number] Physical Exam Vital Signs: Temp: 98 ??F [...] your primary care provider & your primary Bakery Sales Clerk as indicated. Activity Your activity upon discharge: [...] Narrative EXAM: XR CHEST 2 VIEWS LOCATION: [facility] DATE: 06/12/2024 INDICATION: CP COMPARISON: 06/03/2024, [...] E-Prescribe naloxone (NARCAN) 4 MG/0.1ML nasal spray Sullivan 1 spray (4 mg) into one nostril [...] German Hall MD at 06/22/2024 12:17 PM PLANT ENGINEERING MANAGER T ENGINEERING MANAGER T ENGINEERING MANAGER Associated attestation - German Hall MD - 06/22/2024 12:17 PM PLANT ENGINEERING MANAGER Attestation: This patient has been seen and [...] 05/01/2024 naloxone (NARCAN) 4 MG/0.1ML nasal spray Sullivan 1 spray (4 mg) into one nostril [...] Overall, I spent 35 minutes today (DOS) [id number] and/or coordinating care as documented above and specifically listed as below: --Reviewing documentation related to patient's history and this current admission available in [employer] --Review and clinical interpretation of pertinent laboratory test results and radiology reports from this admission --Discussion of the patient's case with the members of the Hematology Consult Team --Discussion with the patient --Documentation in the electronic health record T ENGINEERING MANAGER * Rl Elias MD - 06/14/2024 7:08 [...] Service (when I saw the patient): 06/14/24 [facility] Progress Note - [facility] Date of Admission: [...] 7-9, most recent Hbg 8.8 on 06/07 STOCK CHASER. Hb.5 -> 6.4 -> 6.8 -> 6.9 Plan: - Blood cultures pending x2 - NGTD - CTM hemoglobin daily - Ordered Voltaren gel, lidocaine patches, and icy hot PRN - Continue Ceftriaxone and Azithromycin for ppx (06/12 -*), consider transition to PO this afternoon - Continue STOCK CHASER hydroxyurea - Continue STOCK CHASER folic acid - Continue IS - type and screen ordered, consented for blood on 06/13 - no indication for transfusion unless hemodynamically unstable - Hematology consulted, appreciate recs - Hydromorphone 2 mg IV Q2H scheduled--titrate within 24-48 hours - Maintenance LR - Transfusion not recommended at this time - albuterol inhaler q6h, zofran, benadryl, docusate, senna PRN #Anxiety #Nausea - Continue STOCK CHASER Fluoxetine - Benadryl PRN per Pain Plan [...] Nivia Carvajal, MS3 Medical Student Medicine Service, [facility] [address] [place] [address] Securely message with [email or web address] (more info) Text page via [facility] Paging/Directory See signed in provider for up [...] German Hall MD at 06/19/2024 8:50 AM PLANT ENGINEERING MANAGER T ENGINEERING MANAGER T ENGINEERING MANAGER T ENGINEERING MANAGER Associated attestation - German Hall MD - 06/19/2024 8:50 AM PLANT ENGINEERING MANAGER Attestation: This patient has been seen and evaluated by me, German Hall MD. Discussed with the house staff team or resident(s) and agree with the findings and plan in this note. I have reviewed today's Medications, Vital Signs, and Labs. DOS 06/14 * Rl Elias MD - 06/13/2024 10:07 AM CST Resident/Fellow Attestation I, RL ELIAS MD, was present with the medical/TFIFANY student who participated in the service and in the documentation of the note. I have verified the history and personally performed the physical exam and medical decision making. I agree with the assessment and plan of care as documented in t he note. RL ELIAS MD PGY2 Date of Service (when I saw the patient): 06/13/24 [facility] Progress Note - Medicine Service, [facility] 1 Date of Admission: 06/12/2024 [...] 7-9, most recent Hbg 8.8 on 06/07 STOCK CHASER. Hb.5 -> 6.4 Plan: -Blood cultures pending x2 -CTM hemoglobin daily -Continue Ceftriaxone and Azithromycin for ppx (06/12 -*) -Continue STOCK CHASER hydroxyurea -Continue STOCK CHASER folic acid - type and screen ordered, consented for blood - no indication for transfusion unless hemodynamic instability - Hematology consulted, appreciate recs -Hydromorphone 2 mg IV Q3H scheduled--titrate within 24-48 hours -Maintenance LR -Transfusion not recommended at this time - zofran, benadryl, docusate, senna PRN #Anxiety #Nausea -Continue STOCK CHASER Fluoxetine -Benadryl PRN per Pain Plan -Zofran [...] Nivia Carvajal, MS3 Medical Student Medicine Service, [facility] [address] [place] [address] Securely message with [email or web address] (more info) Text page via [employer] Paging/Directory See signed in provider for up [...] Narrative EXAM: XR CHEST 2 VIEWS LOCATION: [facility] DATE: 06/12/2024 INDICATION: CP COMPARISON: 06/03/2024, [...] German Hall MD at 06/14/2024 8:25 AM PLANT ENGINEERING MANAGER T ENGINEERING MANAGER T ENGINEERING MANAGER Associated attestation - German Hall MD - 06/14/2024 8:25 AM PLANT ENGINEERING MANAGER Attestation: This patient has been seen and evaluated by me, German Hall MD. Discussed with the house staff team or resident(s) and agree with the findings and plan in this note. I have reviewed today's Medications, Vital Signs, and Labs. DOS 06/13 * Mary Flores MD - 06/12/2024 8:20 PM CST firer low pressure Hematology fellow note 29F Sickle cell disease [...] Flores MD MS Hematology fellow, PGY5 Pager: [phone] Cosigned by Kirstin Long MD at 06/13/2024 7:25 AM PLANT ENGINEERING MANAGER T ENGINEERING MANAGER T ENGINEERING MANAGER T ENGINEERING MANAGER Associated attestation - Kirstin Long MD - 06/13/2024 7:25 AM PLANT ENGINEERING MANAGER Physician Attestation I discussed patient overnight with fellow classification clerk. I agree with plan as outlined. I did not see thepatient on this date. Kirstin Long MD/PhD documented in this encounter H&P Notes * Laquita Kelley MD - 06/12/2024 9:[address] [facility] History and Physical - Medicine Service, [facility] Date of Admission: 06/12/2024 Assessment [...] of avascular necrosis of left hip -Continue STOCK CHASER hydroxyurea -Continue STOCK CHASER folic acid -Transfuse for Hb<7 #Stroke reported [...] Jain . 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, had port-a-cath in [facility] Functional asplenia Gallstones Hb-SS disease without [...] 4 MG/0.1ML nasal spray No No Sig: Sullivan 1 spray (4 mg) into one nostril [...] Andres Jain DO at 06/12/2024 10:27 PM PLANT ENGINEERING MANAGER T ENGINEERING MANAGER T ENGINEERING MANAGER T ENGINEERING MANAGER T ENGINEERING MANAGER Associated attestation - Andres Jain DO - 06/12/2024 10:27 PM PLANT ENGINEERING MANAGER Physician Attestation I saw this patient with [...] Communication Assessment Patient's communication style: spoken language (Dutch or Bilingual) Cognitive Cognitive/Neuro/Behavioral: WDL Living Environment: [...] Depression: Not at risk (04/11/2024) Received from [facility] PHQ-2 PHQ-2 TOTAL SCORE: 1 Housing [...] Social Connections: Socially Integrated (03/28/2024) Received from [facility] Social Connections Do you often feel lonely or isolated from those around you?: 0 Health Literacy: Not on file Functional Status: Prior to admission patient needed assistance: Dependent ADLs:: Independent Dependent IADLs:: Independent Mental Health Status: Mental Health Status: No Current Concerns Chemical Dependency Status: Chemical Dependency Status: No Current Concerns Values/Beliefs: Spiritual, Cultural Beliefs, Yazidism Practices, Values that affect care: no Discussed [...] Katheryn Carter RN, PHN, BSN Float Nurse Manager Placement Covering for Unit ED Phone [phone] T ENGINEERING MANAGER * Kirstin Long MD - 06/13/2024 10:17 AM CSTAssociated Order(s): HEMATOLOGY ADULT IP CONSULT Images from the original note were not included. Hematology Consult Note Date of Service: 06/13/2024 Patient: Gianna Hernández Admission Date: 06/12/2024 Hospital Day # 1 Hematology Diagnosis: Sickle Cell Disease - HbSS Primary Outpatient Bakery Sales Clerk: Dr Samuel Current Treatment Plan: Inpatient: Opioid: [...] 11 naloxone (NARCAN) 4 MG/0.1ML nasal spray Sullivan 1 spray (4 mg) into one nostril [...] Imaging EXAM: XR CHEST 2 VIEWS LOCATION: [facility] DATE: 06/12/2024 INDICATION: CP COMPARISON: 06/03/2024, 05/27/2024 IMPRESSION: A few faint peripheral reticulonodular opacities in the mid and lower lungs again seen.Lungs otherwise clear. No pleural effusion. No pneumothorax. Borderline cardiac enlargement unchanged. Port anterior right chest wall with right IJ central venous catheter tip low SVC. Port anterior left chest wall with left IJ central venous catheter tip low SVC. T ENGINEERING MANAGER documented in this encounter ED Notes * Juhi Crump RN - 06/12/2024 6:55 PM CST Bed: [facility] Expected date: Expected time: Means of arrival: Comments: SICK T ENGINEERING MANAGER * Lebron Aponte RN - 06/12/2024 6:34 PM CST Pt ambulatory to triage with CC of sickle cell pain in the L upper anterior chest. Was seen for this at [facility] last night. Reports interventions at [facility] were helpful, however pain has returned. Patient reports taking 4mg po Dilaudid at 1500 with partial relief of pain but is still severe. Contacted director of accounts receivable and was instructed to come to [facility]. Reports SOB a little bit. It hurts to take a deep breath. Denies dizziness. Triage Assessment (Adult) Row Name 06/12/24 9976 Triage Assessment Airway WDL WDL Respiratory WDL Respiratory WDL WDL Skin Circulation/Temperature WDL Skin Circulation/Temperature WDL WDL Cardiac WDL Cardiac WDL X;chest pain Chest Pain Assessment Chest Pain Location anterior chest, left Peripheral/Neurovascular WDL Peripheral Neurovascular WDL WDL Cognitive/Neuro/Behavioral WDL Cognitive/Neuro/Behavioral WDL WDL Lester Coma Scale Best Eye Response 4-->(E4) spontaneous Best Motor Response 6-->(M6) obeys commands Best Verbal Response 5-->(V5) oriented [place] Coma Scale Score 15 T ENGINEERING MANAGER * Abdelrahman Goddard MD - 06/12/2024 6:20 PM CST Images from the original note were not included. [place] [facility]ERGENCY DEPARTMENT ([facility]) 06/12/24 ED PROVIDER NOTE History No chief [...] background: 29 yo F, recently moved from [place] Sickle Cell Disease History Primary Bakery Sales Clerk/REDUCING SALON ATTENDANT/PA: Lizzie Genotype: SS Acute Pain Crisis Treatment: [...] chest pain Rhythm: normal sinus Rate: 94BPM Convent Station: Normal Ectopy: none Conduction: normal ST Segments/ [...] Rate 102 BPM Atrial Rate 102 BPM OR Interval 158 ms QRS Duration 78 ms QT 348 ms QTc 453 ms P Convent Station 39 degrees R AXIS 66 degrees T Convent Station 33 degrees Interpretation ECG Sinus tachycardia Nonspecific T wave abnormality Abnormal ECG When compared with ECG of 05-Jun-2024 11:40, No significant change was found Confirmed by SEE ED PROVIDER NOTE FOR, ECG INTERPRETATION ([id number]), medical transcription editor SELMA GARRISON ([id number]) on 06/11/2024 9:05:27 PM Medications - No [...] Hernadez, am serving as a trained medical case worker to document services personally performed by Abdelrahman Goddard MD, based on the provider's statements to me. I, Abdelrahman Goddard MD, was physically present and have reviewed and verified the accuracy of this note documented by Jovanny Hernadez. Abdelrahman Goddard MD [facility] EMERGENCY DEPARTMENT 06/12/2024 Abdelrahman Goddard MD 06/12/242023 T ENGINEERING MANAGER documented in this encounter Miscellaneous Notes * Plan of Care - Clay Avina RN - 06/15/2024 9:55 AM CST Goal Outcome Evaluation: Plan of Care Reviewed With: patient Overall Patient Progress: improving 4x A/O. VSS. RA. Independent. AVS reviewed, questions answered. Port de accessed with saline flush and heparin locked. T ENGINEERING MANAGER * Plan of Care - Kathy Levy RN - 06/15/2024 6:22 AM CST Goal Outcome Evaluation: Plan of Care Reviewed With: patient Overall Patient Progress: improving Pt is alert anf oriented x4. VSS, on room air with no SOB noted. On pain management for sickle cellcrisis. Tolerating diet well with no n/v. L chest port infusing intermittent IV ABT. Voiding well. Last BM STOCK CHASER. Pt is up ad chandler. Will continue with plan of care. T ENGINEERING MANAGER * Plan of Care - Clay Avina RN - 06/14/2024 5:02 PM CST Goal Outcome Evaluation: Plan of Care Reviewed With: patient Overall Patient Progress: improving 4x A/O. VSS. Independent. Pain controlled with schedule q2hr IV dilaudid. Tolerating regular diet. Voiding spontaneously. Had nausea in AM, relieved with Zofran. Port SL. T ENGINEERING MANAGER * Pharmacy-Admission Medication History - Lorenza Valdes - 06/14/2024 11:19 AM CST Meat Washer Admission Medication History Admission medication history is complete. The information provided in this note is only as accurateas the sources available at the time of the update. Information Source(s): Patient and CareEverywhere/SureScripts via in-person Pertinent Information: Medication reconciliation completed at bedside with patient. Patient was a good historian of her medication names, doses, frequencies, and last doses. Changes made to STOCK CHASER medication list: Added: Epi-pen: patient has pen available, but has not used recently. Ibuprofen: OTC product used PRN for pain. Benadryl: OTC product used PRN for itching due to hydromorphone. Deleted: None Changed: None Allergies reviewed with patient and updates made in EHR: yes Medication History Completed By: Lorenza Valdes 06/14/2024 11:19 AM STOCK CHASER Med List Medication Sig Last Dose/Taking diphenhydrAMINE [...] Morning naloxone (NARCAN) 4 MG/0.1ML nasal spray Sullivan 1 spray (4 mg) into one nostril alternating nostrilsas needed for opioid reversal (for opiate overdose if not breathing and unconscious. have your family member watch video on how to use/read information sheet). every 2-3 minutes until assistance arrives Taking As Needed Cosigned by Terrell Fernandez RPH at 06/15/2024 10:33 AM PLANT ENGINEERING MANAGER T ENGINEERING MANAGER T ENGINEERING MANAGER Associated attestation - Terrell Fernandez RPH - 06/15/2024 10:33 AM PLANT ENGINEERING MANAGER I have read and agree with the student's note. Terrell Fernandez, PGY-1 Servomechanism Designer * Provider Notification - Kiki Caal RN - 06/13/2024 7:27 PM PLANT ENGINEERING MANAGER Notified providers Nivia Carvajal, Laquita Kelley and Rl Elias of critical Hgb 6.8 at 1920. No new orders T ENGINEERING MANAGER * Plan of Care - Katheryn Carter RN - 06/13/2024 12:44 PM CST Goal Outcome Evaluation: Plan of Care Reviewed With: patient Overall Patient Progress: improvingOverall Patient Progress: improving Outcome Evaluation: Plan: TBD Katheryn Carter RN, PHN, BSN Float Nurse Manager Placement Covering for Unit ED Phone [phone] T ENGINEERING MANAGER * Plan of Care - Shauna Cuadra [...] with POC. Notify primary team with changes. T ENGINEERING MANAGER documented in this encounter Plan of Treatment Upcoming Encounters Date Type Department Care Team (Late st Contact Info) Description 07/04/2024 9:[address] [facility] Cancer [address] [address] Case Samuel MD [address] [place] [address], [address] [place], [place] [phone] 07/06/2024 8:00 AM CDT Appointment [facility] [address] [phone] Case Samuel MD [address] [place] [place] [address], [address] [place], [place] [address] 07/10/2024 11:30 AM CDT Oncology Visit 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 Author Pain Management General On track( 025 12:40 PM PLANT ENGINEERING MANAGER) Yes Juhi Benson, RN Note: Goal [...] PLATELETS AND DIFFERENTIAL STAT 06/15/2024 6:09 AM PLANT ENGINEERING MANAGER CBC WITH PLATELETS & DIFFERENTIAL STAT 06/15/2024 6:09 AM PLANT ENGINEERING MANAGER BASIC METABOLIC PANEL STAT 06/15/2024 6:09 AM PLANT ENGINEERING MANAGER XR CHEST PORT 1 VIEW STAT 06/14/2024 8:46 AM PLANT ENGINEERING MANAGER BASIC METABOLIC PANEL STAT 06/14/2024 7:08 AM PLANT ENGINEERING MANAGER CBC WITH PLATELETS STAT 06/14/2024 7: 08 AM PLANT ENGINEERING MANAGER CBC WITH PLATELETS STAT 06/13/2024 6: 32 PM PLANT ENGINEERING MANAGER RBC AND PLATELET MORPHOLOGY STAT 06/13/2024 6:00 AM PLANT ENGINEERING MANAGER CBC WITH PLATELETS AND DIFFERENTIAL STAT 06/13/2024 6:00 AM PLANT ENGINEERING MANAGER CBC WITH PLATELETS & DIFFERENTIAL STAT 06/13/2024 6:00 AM PLANT ENGINEERING MANAGER BASIC METABOLIC PANEL STAT 06/13/2024 5:59 AM PLANT ENGINEERING MANAGER RESPIRATORY PANEL PCR STAT 06/12/2024 9:34 PM PLANT ENGINEERING MANAGER BLOOD CULTURE STAT 06/12/2024 8:46 PM PLANT ENGINEERING MANAGER BLOOD CULTURE STAT 06/12/2024 8:46 PM PLANT ENGINEERING MANAGER XR CHEST 2 VIEWS STAT 06/12/2024 7:38 PM PLANT ENGINEERING MANAGER RBC AND PLATELET MORPHOLOGY STAT 06/12/2024 7:17 PM PLANT ENGINEERING MANAGER CBC WITH PLATELETS AND DIFFERENTIAL STAT 06/12/2024 7:17 PM PLANT ENGINEERING MANAGER TYPE AND SCREEN, ADULT Routine 06/12/2024 7:17 PM PLANT ENGINEERING MANAGER TROPONIN T, HIGH SENSITIVITY STAT 06/12/2024 7:17 PM PLANT ENGINEERING MANAGER CBC WITH PLATELETS & DIFFERENTIAL STAT 06/12/2024 7:17 PM PLANT ENGINEERING MANAGER INR STAT 06/12/2024 7:17 PM PLANT ENGINEERING MANAGER BLOOD GAS VENOUS STAT 06/12/2024 7:17 PM PLANT ENGINEERING MANAGER ABO/RH TYPE AND SCREEN Add-On 06/12/2024 7:17 PM PLANT ENGINEERING MANAGER BASIC METABOLIC PANEL STAT 06/12/2024 7:17 PM PLANT ENGINEERING MANAGER EKG 12-LEAD, TRACING ONLY STAT 06/12/2024 6:37 PM PLANT ENGINEERING MANAGER documented in this encounter Results * (ABNORMAL) CBC with platelets and differential (06/15/2024 6:09 AM PLANT ENGINEERING MANAGER) [facility] WBC Count 11.8(H) 4.0 - 11.0 10e3/uL 06/15/2024 6:36 AM PLANT ENGINEERING MANAGER [facility] RBC Count 2.27(L) 3.80 - 5.20 10e6/uL 06/15/2024 6:36 AM PLANT ENGINEERING MANAGER [facility] Hemoglobin 7.2(L) 11.7 - 15.7 g/dL 06/15/2024 6:36 AM PLANT ENGINEERING MANAGER [facility] Hematocrit 20.4(L) 35.0 - 47.0 % 06/15/2024 6:36 AM PLANT ENGINEERING MANAGER [facility] MCV 90 78 - 100 fL 06/15/2024 6:36 AM PLANT ENGINEERING MANAGER [facility] MCH 31.7 26.5 - 33.0 pg 06/15/2024 6:36 AM PLANT ENGINEERING MANAGER [facility] MCHC 35.3 31.5 - 36.5 g/dL 06/15/2024 6:36 AM PLANT ENGINEERING MANAGER [facility] RDW 19.0(H) 10.0 - 15.0 % 06/15/2024 6:36 AM PLANT ENGINEERING MANAGER [facility] Platelet Count 500(H) 150 - 450 10e3/uL 06/15/2024 6:36 AM PLANT ENGINEERING MANAGER [facility] % Neutrophils 54 % 06/15/2024 6:36 AM PLANT ENGINEERING MANAGER [facility] % Lymphocytes 31 % 06/15/2024 6:36 AM PLANT ENGINEERING MANAGER [facility] % Monocytes 9 % 06/15/2024 6:36 AM PLANT ENGINEERING MANAGER [facility] % Eosinophils 5 % 06/15/2024 6:36 AM PLANT ENGINEERING MANAGER [facility] % Basophils 2 % 06/15/2024 6:36 AM PLANT ENGINEERING MANAGER [facility] % Immature Granulocytes 1 % 06/15/2024 6:36 AM PLANT ENGINEERING MANAGER [facility] NRBCs per 100 WBC 2(H) <1 /100 025 6:36 AM PLANT ENGINEERING MANAGER [facility] Absolute Neutrophils 6.3 1.6 - 8.3 10e3/uL 06/15/2024 6:36 AM PLANT ENGINEERING MANAGER [facility] Absolute Lymphocytes 3.6 0.8 - 5.3 10e3/uL 06/15/2024 6:36 AM PLANT ENGINEERING MANAGER [facility] Absolute Monocytes 1.0 0.0 - 1.3 10e3/uL 06/15/2024 6:36 AM PLANT ENGINEERING MANAGER [facility] Absolute Eosinophils 0.6 0.0 - 0.7 10e3/uL 06/15/2024 6:36 AM PLANT ENGINEERING MANAGER [facility] Absolute Basophils 0.2 0.0 - 0.2 10e3/uL 06/15/2024 6:36 AM PLANT ENGINEERING MANAGER [facility] Absolute Immature Granulocytes 0.1 <=0.4 10e3/uL 06/15/2024 6:36 AM PLANT ENGINEERING MANAGER [facility] Absolute NRBCs 0.2 10e3/uL 06/15/2024 6:36 AM PLANT ENGINEERING MANAGER [facility] Blood BLOOD SPECIMEN / Unknown IVAD (Port) / Unknown 06/15/2024 6:09 AM PLANT ENGINEERING MANAGER 06/15/2024 6:18 AM PLANT ENGINEERING MANAGER Rl Elias MD LAB - BLOOD ORDER SYD Final Result [facility] [place] [facility] [address] [facility], [address] [place] [address] * (ABNORMAL) Basic metabolic panel (06/15/2024 6:09 AM PLANT ENGINEERING MANAGER) Sodium 136 135 - 145 mmol/L 06/15/2024 7:13 AM PLANT ENGINEERING MANAGER [facility] Potassium 4.4 3.4 - 5.3 mmol/L 06/15/2024 7:13 AM PLANT ENGINEERING MANAGER [facility] Chloride 104 98 - 107 mmol/L 06/15/2024 7:13 AM PLANT ENGINEERING MANAGER [facility] Carbon Dioxide (CO2) 21(L) 22 - 29 mmol/L 06/15/2024 7:13 AM PLANT ENGINEERING MANAGER [facility] Anion Gap 11 7 - 15 mmol/L 06/15/2024 7:13 AM PLANT ENGINEERING MANAGER [facility] Urea Nitrogen 10.1 6.0 - 20.0 mg/dL 06/15/2024 7:13 AM PLANT ENGINEERING MANAGER [facility] Creatinine 0.65 0.51 - 0.95 mg/dL 06/15/2024 7:13 AM PLANT ENGINEERING MANAGER [facility] GFR Estimate >90 >60 mL/min/1.7 3m2 06/15/2024 7:13 AM PLANT ENGINEERING MANAGER [facility] Comment:eGFR calculated us2020 CKD-EPI equation. Calcium 8.9 8.8 - 10.4 mg/dL 06/15/2024 7:13 AM PLANT ENGINEERING MANAGER [facility] Glucose 104(H) 70 - 99 mg/dL 06/15/2024 7:13 AM PLANT ENGINEERING MANAGER [facility] Blood BLOOD SPECIMEN / Unknown IVAD (Port) / Unknown 06/15/2024 6:09 AM PLANT ENGINEERING MANAGER 06/15/2024 6:16 AM PLANT ENGINEERING MANAGER Rl Elias MD LAB - BLOOD ORDER SYD Final Result [facility] [place] [facility] [address] [facility] [address] [facility], [address] [phone] * XR Chest Port 1 View (06/14/2024 8:46 AM PLANT ENGINEERING MANAGER) Anatomical Region Laterality Modality Chest Digital Radiogra phy Impressions 06/14/2024 8:59 AM PLANT ENGINEERING MANAGER Impression: Further increase in ill-defined opacity projecting over the right lower lung concerning for pneumonia. MARIO ALBERTO BLACKWOOD MD Narrative 06/14/2024 8:59 AM PLANT ENGINEERING MANAGER Exam: XR CHEST PORT 1 VIEW, [...] (ABNORMAL) CBC with platelets (06/14/2024 7:08 AM PLANT ENGINEERING MANAGER) [facility] WBC Count 13.4(H) 4.0 - 11.0 10e3/uL 06/14/2024 7:46 AM PLANT ENGINEERING MANAGER [facility] RBC Count 2.30(L) 3.80 - 5.20 10e6/uL 06/14/2024 7:46 AM PLANT ENGINEERING MANAGER [facility] Hemoglobin 6.9(LL) 11.7 - 15.7 g/dL 06/14/2024 7:46 AM PLANT ENGINEERING MANAGER [facility] Hematocrit 21.6(L) 35.0 - 47.0 % 06/14/2024 7:46 AM PLANT ENGINEERING MANAGER [facility] MCV 94 78 - 100 fL 06/14/2024 7:46 AM PLANT ENGINEERING MANAGER [facility] MCH 30.0 26.5 - 33.0 pg 06/14/2024 7:46 AM PLANT ENGINEERING MANAGER [facility] MCHC 31.9 31.5 - 36.5 g/dL 06/14/2024 7:46 AM PLANT ENGINEERING MANAGER [facility] RDW 19.4(H) 10.0 - 15.0 % 06/14/2024 7:46 AM PLANT ENGINEERING MANAGER [facility] Platelet Count 501(H) 150 - 450 10e3/uL 06/14/2024 7:46 AM PLANT ENGINEERING MANAGER [facility] Blood BLOOD SPECIMEN / Unknown Venipuncture / Unknown 06/14/2024 7:08 AM PLANT ENGINEERING MANAGER 06/14/2024 7:22 AM PLANT ENGINEERING MANAGER us Rl Elias MD LAB - BLOOD ORDER SYD Final Result [facility] [place] [facility] [address] [facility], [address] [place] [address], [facility] * (ABNORMAL) Basic metabolic panel (06/14/2024 7:08 AM PLANT ENGINEERING MANAGER) [facility] Sodium 136 135 - 145 mmol/L 06/14/2024 7:57 AM PLANT ENGINEERING MANAGER [facility] Potassium 4.2 3.4 - 5.3 mmol/L 06/14/2024 7:57 AM PLANT ENGINEERING MANAGER [facility] Chloride 107 98 - 107 mmol/L 06/14/2024 7:57 AM PLANT ENGINEERING MANAGER [facility] Carbon Dioxide (CO2) 20(L) 22 - 29 mmol/L 06/14/2024 7:57 AM PLANT ENGINEERING MANAGER [facility] Anion Gap 9 7 - 15 mmol/L 06/14/2024 7:57 AM PLANT ENGINEERING MANAGER [facility] Urea Nitrogen 6.5 6.0 - 20.0 mg/dL 06/14/2024 7:57 AM PLANT ENGINEERING MANAGER [facility] Creatinine 0.71 0.51 - 0.95 mg/dL 06/14/2024 7:57 AM PLANT ENGINEERING MANAGER [facility] GFR Estimate >90 >60 mL/min/1.7 3m2 06/14/2024 7:57 AM PLANT ENGINEERING MANAGER [facility] Comment:eGFR calculated 2020 CKD-EPI equation. Calcium 8.9 8.8 - 10.4 mg/dL 06/14/2024 7:57 AM PLANT ENGINEERING MANAGER [facility] Glucose 92 70 - 99 mg/dL 06/14/2024 7:57 AM PLANT ENGINEERING MANAGER [facility] Blood BLOOD SPECIMEN / Unknown Venipuncture / Unknown 06/14/2024 7:08 AM PLANT ENGINEERING MANAGER 06/14/2024 7:22 AM PLANT ENGINEERING MANAGER us Rl Elias MD LAB - BLOOD ORDER SYD Final Result [facility] [place] [facility] [address] [facility], [address] [place] [phone] * (ABNORMAL) CBC with platelets (06/13/2024 6:32 PM PLANT ENGINEERING MANAGER) WBC Count 15.3(H) 4.0 - 11.0 10e3/uL 06/13/2024 7:10 PM PLANT ENGINEERING MANAGER [facility] RBC Count 2.21(L) 3.80 - 5.20 10e6/uL 06/13/2024 7:10 PM PLANT ENGINEERING MANAGER [facility] Hemoglobin 6.8(LL) 11.7 - 15.7 g/dL 06/13/2024 7:10 PM PLANT ENGINEERING MANAGER [facility] Hematocrit 20.8(L) 35.0 - 47.0 % 06/13/2024 7:10 PM PLANT ENGINEERING MANAGER [facility] MCV 94 78 - 100 fL 06/13/2024 7:10 PM PLANT ENGINEERING MANAGER [facility] MCH 30.8 26.5 - 33.0 pg 06/13/2024 7:10 PM PLANT ENGINEERING MANAGER [facility] MCHC 32.7 31.5 - 36.5 g/dL 06/13/2024 7:10 PM PLANT ENGINEERING MANAGER [facility] RDW 19.6(H) 10.0 - 15.0 % 06/13/2024 7:10 PM PLANT ENGINEERING MANAGER [facility] Platelet Count 495(H) 150 - 450 10e3/uL 06/13/2024 7:10 PM PLANT ENGINEERING MANAGER [facility] Blood CENTRAL VENOUS CATHETER / Unknown VAD(CVC, PICC) / Unknown 06/13/2024 6:32 PM PLANT ENGINEERING MANAGER 06/13/2024 6:52 PM PLANT ENGINEERING MANAGER Rl Elias MD LAB - BLOOD ORDER SYD Final Result [facility] [place] [facility] [address] [facility], [address] [id number] * (ABNORMAL) RBC and Platelet Morphology (06/13/2024 6:00 AM PLANT ENGINEERING MANAGER) RBC Morphology Confirmed RBC Indices 06/13/2024 3:45 PM PLANT ENGINEERING MANAGER [facility] Platelet Assessment Automated Count Confirmed. Platelet morphology is normal. Automated Count Confirmed. Platelet morphology is normal. 06/13/2024 3:45 PM PLANT ENGINEERING MANAGER [facility] Polychromasia Moderate(A) None Seen 06/13/2024 3:45 PM PLANT ENGINEERING MANAGER [facility] Sickle Cells Moderate(A) None Seen 06/13/2024 3:45 PM PLANT ENGINEERING MANAGER [facility] Target Cells Moderate(A) None Seen 06/13/2024 3:45 PM PLANT ENGINEERING MANAGER [facility] Pathologist Review Comments (Blood) Sickle shaped red blood cells are present compatible with patient's history of sickle cell disease. Ziegler Velva bodies are present compatible with hyposplenic blood picture. There is increased lymphocytes; however, the morphology of lymphocytes is polymorphous. Follow up CBC, diff for resolution of this findings is recommended. Danny Martinez MD on 06/13/2024 at 3:44 PM 06/13/2024 3:45 PM PLANT ENGINEERING MANAGER [facility] Comment:This is an appended report. These results have been appended to a previously final verified report. Blood VENOUS LINE / Unknown IVAD (Port) / Unknown 06/13/2024 6:00 AM PLANT ENGINEERING MANAGER 06/13/2024 6:16 AM PLANT ENGINEERING MANAGER us Laquita Kelley MD LAB - BLOOD ORDERABLES Edited R esult - Final SPECIALTY LABS Specialty Lab [address] [facility] [address], [address] [place] [address], [facility] [place] [facility] [address] [facility] [address], [address] [place] [address], [facility] * (ABNORMAL) CBC with platelets and differential (06/13/2024 6:00 AM PLANT ENGINEERING MANAGER) WBC Count 17.0(H) 4.0 - 11.0 10e3/uL 06/13/2024 9:51 AM PLANT ENGINEERING MANAGER [facility] RBC Count 2.11(L) 3.80 - 5.20 10e6/uL 06/13/2024 9:51 AM PLANT ENGINEERING MANAGER [facility] Hemoglobin 6.4(LL) 11.7 - 15.7 g/dL 06/13/2024 9:51 AM PLANT ENGINEERING MANAGER [facility] Hematocrit 20.3(L) 35.0 - 47.0 % 06/13/2024 9:51 AM PLANT ENGINEERING MANAGER [facility] MCV 96 78 - 100 fL 06/13/2024 9:51 AM PLANT ENGINEERING MANAGER [facility] MCH 30.3 26.5 - 33.0 pg 06/13/2024 9:51 AM PLANT ENGINEERING MANAGER [facility] MCHC 31.5 31.5 - 36.5 g/dL 06/13/2024 9:51 AM PLANT ENGINEERING MANAGER [facility] RDW 19.8(H) 10.0 - 15.0 % 06/13/2024 9:51 AM PLANT ENGINEERING MANAGER [facility] Platelet Count 458(H) 150 - 450 10e3/uL 06/13/2024 9:51 AM PLANT ENGINEERING MANAGER [facility] % Neutrophils 40 % 06/13/2024 9:51 AM PLANT ENGINEERING MANAGER [facility] % Lymphocytes 42 % 06/13/2024 9:51 AM PLANT ENGINEERING MANAGER [facility] % Monocytes 13 % 06/13/2024 9:51 AM PLANT ENGINEERING MANAGER [facility] % Eosinophils 3 % 06/13/2024 9:51 AM PLANT ENGINEERING MANAGER [facility] % Basophils 1 % 06/13/2024 9:51 AM PLANT ENGINEERING MANAGER [facility] % Immature Granulocytes 1 % 06/13/2024 9:51 AM PLANT ENGINEERING MANAGER [facility] NRBCs per 100 WBC 0 <1 /100 025 9:51 AM PLANT ENGINEERING MANAGER [facility] Absolute Neutrophils 6.7 1.6 - 8.3 10e3/uL 06/13/2024 9:51 AM PLANT ENGINEERING MANAGER [facility] Absolute Lymphocytes 7.2(H) 0.8 - 5.3 10e3/uL 06/13/2024 9:51 AM PLANT ENGINEERING MANAGER [facility] Absolute Monocytes 2.2(H) 0.0 - 1.3 10e3/uL 06/13/2024 9:51 AM PLANT ENGINEERING MANAGER [facility] Absolute Eosinophils 0.5 0.0 - 0.7 10e3/uL 06/13/2024 9:51 AM PLANT ENGINEERING MANAGER [facility] Absolute Basophils 0.2 0.0 - 0.2 10e3/uL 06/13/2024 9:51 AM PLANT ENGINEERING MANAGER [facility] Absolute Immature Granulocytes 0.1 <=0.4 10e3/uL 06/13/2024 9:51 AM PLANT ENGINEERING MANAGER [facility] Absolute NRBCs 0.1 10e3/uL 06/13/2024 9:51 AM PLANT ENGINEERING MANAGER [facility] Blood VENOUS LINE / Unknown IVAD (Port) / Unknown 06/13/2024 6:00 AM PLANT ENGINEERING MANAGER 06/13/2024 6:16 AM PLANT ENGINEERING MANAGER Narrative [facility] - 06/13/2024 9:51 AM PLANT ENGINEERING MANAGER Sent for review by Pathologist. See Pathologist comments after review. Tech Comments Patient Diagnosis: Sickle Cell crisis Reason for Sending: absolute lymphocyte > 5.4 us Laquita Kelley MD LAB - BLOOD ORDERABLES Final Re sult SPECIALTY LABS [facility] Specialty Lab [address] [facility] [address], [address] [place] [address], [facility] [place] [facility] [address] [facility] [address] [facility], [address] [place] [address], [facility] * (ABNORMAL) Basic metabolic panel (06/13/2024 5:59 AM PLANT ENGINEERING MANAGER) Sodium 135 135 - 145 mmol/L 06/13/2024 6:45 AM PLANT ENGINEERING MANAGER [facility] Potassium 4.3 3.4 - 5.3 mmol/L 06/13/2024 6:45 AM PLANT ENGINEERING MANAGER [facility] Chloride 105 98 - 107 mmol/L 06/13/2024 6:45 AM PLANT ENGINEERING MANAGER [facility] Carbon Dioxide (CO2) 21(L) 22 - 29 mmol/L 06/13/2024 6:45 AM PLANT ENGINEERING MANAGER [facility] Anion Gap 9 7 - 15 mmol/L 06/13/2024 6:45 AM PLANT ENGINEERING MANAGER [facility] Urea Nitrogen 4.9(L) 6.0 - 20.0 mg/dL 06/13/2024 6:45 AM PLANT ENGINEERING MANAGER [facility] Creatinine 0.70 0.51 - 0.95 mg/dL 06/13/2024 6:45 AM PLANT ENGINEERING MANAGER [facility] GFR Estimate >90 >60 mL/min/1.7 3m2 06/13/2024 6:45 AM PLANT ENGINEERING MANAGER [facility] Comment:eGFR calculated us2020 CKD-EPI equation. Calcium 8.7(L) 8.8 - 10.4 mg/dL 06/13/2024 6:45 AM PLANT ENGINEERING MANAGER [facility] Glucose 100(H) 70 - 99 mg/dL 06/13/2024 6:45 AM PLANT ENGINEERING MANAGER [facility] Blood VENOUS LINE / Unknown IVAD (Port) / Unknown 06/13/2024 5:59 AM PLANT ENGINEERING MANAGER 06/13/2024 6:16 AM PLANT ENGINEERING MANAGER us Laquita Kellye MD LAB - BLOOD ORDERABLES Final Re sult [facility] [place] [facility] [address] [facility], [address] [place] [phone] * Respiratory Panel PCR (06/12/2024 9:34 PM PLANT ENGINEERING MANAGER) Adenovirus Not Detected Not Detected 06/12/2024 11:53 PM PLANT ENGINEERING MANAGER [facility] Coronavirus Not Detected Not Detected 06/12/2024 11:53 PM PLANT ENGINEERING MANAGER [facility] Comment:This test detects Co ronavirus 229E, HKU1, NL63 and OC43 but does not distinguish between them. It does not detect MERS ( Respiratory Syndrome), SARS (Severe Acute Respiratory Syndrome) or 2019-nCoV (Novel 2019) Coronavirus. Human Metapneumovirus Not Detected Not Detected 06/12/2024 11:53 PM PLANT ENGINEERING MANAGER [facility] Human Rhin/Enterovirus Not Detected Not Detected 06/12/2024 11:53 PM PLANT ENGINEERING MANAGER [facility] Influenza A Not Detected Not Detected 06/12/2024 11:53 PM PLANT ENGINEERING MANAGER [facility] Influenza A, H1 Not Detected Not Detected 06/12/2024 11:53 PM PLANT ENGINEERING MANAGER [facility] Influenza A 2009 H1N1 Not Detected Not Detected 06/12/2024 11:53 PM PLANT ENGINEERING MANAGER [facility] Influenza A, H3 Not Detected Not Detected 06/12/2024 11:53 PM PLANT ENGINEERING MANAGER [facility] Influenza B Not Detected Not Detected 06/12/2024 11:53 PM PLANT ENGINEERING MANAGER [facility] Parainfluenza Virus 1 Not Detected Not Detected 06/12/2024 11:53 PM PLANT ENGINEERING MANAGER [facility] Parainfluenza Virus 2 Not Detected Not Detected 06/12/2024 11:53 PM PLANT ENGINEERING MANAGER [facility] Parainfluenza Virus 3 Not Detected Not Detected 06/12/2024 11:53 PM PLANT ENGINEERING MANAGER [facility] Parainfluenza Virus 4 Not Detected Not Detected 06/12/2024 11:53 PM PLANT ENGINEERING MANAGER [facility] Respiratory Syncytial Virus A Not Detected Not Detected 06/12/2024 11:53 PM PLANT ENGINEERING MANAGER [facility] Respiratory Syncytial Virus B Not Detected Not Detected 06/12/2024 11:53 PM PLANT ENGINEERING MANAGER [facility] Chlamydia Pneumoniae Not Detected Not Detected 06/12/2024 11:53 PM PLANT ENGINEERING MANAGER [facility] Mycoplasma Pneumoniae Not Detected Not Detected 06/12/2024 11:53 PM PLANT ENGINEERING MANAGER [facility] Swab NASOPHARYNGEAL STRUCTURE / Unknown Non-blood Collection / Unknown 06/12/2024 9:34 PM PLANT ENGINEERING MANAGER 06/12/2024 9:47 PM PLANT ENGINEERING MANAGER Narrative [facility] - 06/12/2024 11:53 PM PLANT ENGINEERING MANAGER The ePlex Respiratory Panel is a qualitative nucleic acid, multiplex, in vitro diagnostic test for the simultaneous detection and identification of multiple respiratory viral and bacterial nucleic acids in nasopharyngeal swabs collected in viral transport media from individual exhibiting signs and symptoms of respiratory infection. The assay has received FDA approval for the testing of nasopharyngeal (REDUCING SALON ATTENDANT) swabs only. This test is used for clinical purposes and should not be regarded as investigational or for research. This laboratory is certified under the Clinical Laboratory Improvement Amendments of 1988 (CLIA-88) as qualified to perform high complexity clinical laboratory testing. us Abdelrahman Goddard MD LAB - MICRO GENERAL ORDERABLES Final Result [facility] Inf. Diseases Diag. Lab [address] [facility], [address] * Blood Culture Peripheral Blood (06/12/2024 8:46 PM PLANT ENGINEERING MANAGER) Culture No Growth 06/17/2024 9:31 PM PLANT ENGINEERING MANAGER [facility] Blood BLOOD SPECIMEN / Unknown Venipuncture / Unknown 06/12/2024 8:46 PM PLANT ENGINEERING MANAGER 06/12/2024 8:53 PM PLANT ENGINEERING MANAGER Narrative [facility] - 06/17/2024 9:31 PM PLANT ENGINEERING MANAGER Only an Aerobic Blood Culture Bottle was collected, interpret results with caution. us Abdelrahman Goddard MD LAB - MICRO GENERAL ORDERABLES Final Result Performing Organization Address [facility] Co de Phone Number [facility] Inf. Diseases Diag. Lab [address] [facility], [address] * Blood Culture Peripheral Blood (06/12/2024 8:46 PM PLANT ENGINEERING MANAGER) Culture No Growth 06/17/2024 9:31 PM PLANT ENGINEERING MANAGER [facility] Blood BLOOD SPECIMEN / Unknown Venipuncture / Unknown 06/12/2024 8:46 PM PLANT ENGINEERING MANAGER 06/12/2024 8:53 PM PLANT ENGINEERING MANAGER us Abdelrahman Goddard MD LAB - MICRO GENERAL ORDERABLES Final Result Performing Organization Address City/[facility]/ZIP Co de Phone Number [facility] Inf. Diseases Diag. Lab [address] [facility], [address] [place] [address], [facility] * XR Chest 2 Views (06/12/2024 7:38 PM PLANT ENGINEERING MANAGER) Anatomical Region Laterality Modality Chest Computed Radiogr aphy 06/12/2024 7:38 PM PLANT ENGINEERING MANAGER Impressions 06/12/2024 7:42 PM PLANT ENGINEERING MANAGER IMPRESSION: A few faint peripheral reticulonodular opacities in the mid and lower lungs again seen. Lungs otherwise clear. No pleural effusion. No pneumothorax. Borderline cardiac enlargement unchanged. Port anterior right chest wall with right IJ central venous catheter tip low SVC. Port anterior left chest wall with left IJ central venous catheter tip low SVC. Narrative 06/12/2024 7:42 PM PLANT ENGINEERING MANAGER EXAM: XR CHEST 2 VIEWS LOCATION: [facility] DATE: 06/12/2024 INDICATION: CP COMPARISON: 06/03/2024, 05/27/2024 Procedure Note Surendra Hou MD - 06/12/2024 EXAM: XR CHEST 2 VIEWS LOCATION: [facility] DATE: 06/12/2024 INDICATION: CP COMPARISON: 06/03/2024, 05/27/2024 IMPRESSION: A few faint peripheral reticulonodular opacities in the midand lower lungs again seen. Lungs otherwise clear. No pleural effusion. Nopneumothorax. Borderline cardiac enlargement unchanged. Port anteriorright chest wall with right IJ central venous catheter tip low SVC. Port anterior left chest wall withleft IJ central venous catheter tip low SVC. Abdelrahman CANALES DIAGNOSTIC IMAGING ORDERAB LES Final Result * Adult Type and Screen (06/12/2024 7:17 PM PLANT ENGINEERING MANAGER) ABO/RH(D) A POS 06/13/2024 9:17 AM PLANT ENGINEERING MANAGER [facility] Antibody Screen Negative Negative 06/13/2024 9:17 AM PLANT ENGINEERING MANAGER [facility] Comment:Current antibody scr een is negative. Patient has a history of antibody(ies). A delay in compatible red blood cells may occur. SPECIMEN EXPIRATION DATE [id number] 06/13/2024 9:17 AM PLANT ENGINEERING MANAGER [facility] Blood BLOOD SPECIMEN / Unknown Venipuncture / Unknown 06/12/2024 7:17 PM PLANT ENGINEERING MANAGER 06/12/2024 7:32 PM PLANT ENGINEERING MANAGER Carmen Aviles PA-C LAB - BLOOD BANK TEST ORDER Final Result Performing Organization Address [facility] de Phone Number BLOOD BANK [address] [place] [address] * (ABNORMAL) RBC and Platelet Morphology (06/12/2024 7:17 PM PLANT ENGINEERING MANAGER) RBC Morphology Confirmed RBC Indices 06/12/2024 8:57 PM PLANT ENGINEERING MANAGER [facility] Platelet Assessment Automated Count Confirmed. Platelet morphology is normal. Automated Count Confirmed. Platelet morphology is normal. 06/12/2024 8:57 PM PLANT ENGINEERING MANAGER [facility] Polychromasia Slight(A) None Seen 06/12/2024 8:57 PM PLANT ENGINEERING MANAGER [facility] Sickle Cells Moderate(A) None Seen 06/12/2024 8:57 PM PLANT ENGINEERING MANAGER [facility] Target Cells Moderate(A) None Seen 06/12/2024 8:57 PM PLANT ENGINEERING MANAGER [facility] Blood BLOOD SPECIMEN / Unknown Venipuncture / Unknown 06/12/2024 7:17 PM PLANT ENGINEERING MANAGER 06/12/2024 7:32 PM PLANT ENGINEERING MANAGER Abdelrahman Goddard MD LAB - BLOOD ORDERABLES Final R esult Performing Organization Address City/[facility] Co de Phone Number [facility] [place] Core Lab [address] [facility] [address], [address] [place] [address] * (ABNORMAL) CBC with platelets and differential (06/12/2024 7:17 PM PLANT ENGINEERING MANAGER) Pathologist [facility] WBC Count 12.5(H) 4.0 - 11.0 10e3/uL 06/12/2024 7:54 PM PLANT ENGINEERING MANAGER [facility] RBC Count 2.44(L) 3.80 - 5.20 10e6/uL 06/12/2024 7:54 PM PLANT ENGINEERING MANAGER [facility] Hemoglobin 7.5(L) 11.7 - 15.7 g/dL 06/12/2024 7:54 PM PLANT ENGINEERING MANAGER [facility] Hematocrit 22.2(L) 35.0 - 47.0 % 06/12/2024 7:54 PM PLANT ENGINEERING MANAGER [facility] MCV 91 78 - 100 fL 06/12/2024 7:54 PM PLANT ENGINEERING MANAGER [facility] MCH 30.7 26.5 - 33.0 pg 06/12/2024 7:54 PM PLANT ENGINEERING MANAGER [facility] MCHC 33.8 31.5 - 36.5 g/dL 06/12/2024 7:54 PM PLANT ENGINEERING MANAGER [facility] RDW 19.5(H) 10.0 - 15.0 % 06/12/2024 7:54 PM PLANT ENGINEERING MANAGER [facility] Platelet Count 542(H) 150 - 450 10e3/uL 06/12/2024 7:54 PM PLANT ENGINEERING MANAGER [facility] % Neutrophils 57 % 06/12/2024 7:54 PM PLANT ENGINEERING MANAGER [facility] % Lymphocytes 24 % 06/12/2024 7:54 PM PLANT ENGINEERING MANAGER [facility] % Monocytes 16 % 06/12/2024 7:54 PM PLANT ENGINEERING MANAGER [facility] % Eosinophils 1 % 06/12/2024 7:54 PM PLANT ENGINEERING MANAGER [facility] % Basophils 1 % 06/12/2024 7:54 PM PLANT ENGINEERING MANAGER [facility] % Immature Granulocytes 0 % 06/12/2024 7:54 PM PLANT ENGINEERING MANAGER [facility] NRBCs per 100 WBC 1(H) <1 /100 025 7:54 PM PLANT ENGINEERING MANAGER [facility] Absolute Neutrophils 7.1 1.6 - 8.3 10e3/uL 06/12/2024 7:54 PM PLANT ENGINEERING MANAGER [facility] Absolute Lymphocytes 3.0 0.8 - 5.3 10e3/uL 06/12/2024 7:54 PM PLANT ENGINEERING MANAGER [facility] Absolute Monocytes 2.0(H) 0.0 - 1.3 10e3/uL 06/12/2024 7:54 PM PLANT ENGINEERING MANAGER [facility] Absolute Eosinophils 0.2 0.0 - 0.7 10e3/uL 06/12/2024 7:54 PM PLANT ENGINEERING MANAGER [facility] Absolute Basophils 0.2 0.0 - 0.2 10e3/uL 06/12/2024 7:54 PM PLANT ENGINEERING MANAGER [facility] Absolute Immature Granulocytes 0.1 <=0.4 10e3/uL 06/12/2024 7:54 PM PLANT ENGINEERING MANAGER [facility] Absolute NRBCs 0.1 10e3/uL 06/12/2024 7:54 PM PLANT ENGINEERING MANAGER [facility] Blood BLOOD SPECIMEN / Unknown Venipuncture / Unknown 06/12/2024 7:17 PM PLANT ENGINEERING MANAGER 06/12/2024 7:32 PM PLANT ENGINEERING MANAGER us Abdelrahman Goddard MD LAB - BLOOD ORDERABLES Final R esult [facility] [address] [facility], [address] [place] [id number] * (ABNORMAL) Blood gas venous (06/12/2024 7:17 PM PLANT ENGINEERING MANAGER) pH Venous 7.38 7.32 - 7.43 06/12/2024 7:40 PM PLANT ENGINEERING MANAGER [facility] pCO2 Venous 42 40 - 50 mm Hg 06/12/2024 7:40 PM PLANT ENGINEERING MANAGER [facility] pO2 Venous 35 25 - 47 mm Hg 06/12/2024 7:40 PM PLANT ENGINEERING MANAGER [facility] Bicarbonate Venous 24 21 - 28 mmol/L 06/12/2024 7:40 PM PLANT ENGINEERING MANAGER [facility] Base Excess/Deficit Venous -0.9 -3.0 - 3.0 mmol/L 06/12/2024 7:40 PM PLANT ENGINEERING MANAGER [facility] FIO2 21 JARET 06/12/2024 7:40 PM PLANT ENGINEERING MANAGER [facility] Oxyhemoglobin Venous 61(L) 70 - 75 % 06/12/2024 7:40 PM PLANT ENGINEERING MANAGER [facility] O2 Sat, Venous 63.9(L) 70.0 - 75.0 % 06/12/2024 7:40 PM PLANT ENGINEERING MANAGER [facility] Blood, venous VENOUS LINE / Unknown Venipuncture / Unknown 06/12/2024 7:17 PM PLANT ENGINEERING MANAGER 06/12/2024 7:30 PM PLANT ENGINEERING MANAGER Narrative [facility] LABORATORY - 06/12/2024 7:40 PM PLANT ENGINEERING MANAGER In healthy individuals, oxyhemoglobin (O2Hb) and oxygen saturation (SO2) are approximately equal. In the presence of dyshemoglobins, oxyhemoglobin can be considerably lower than oxygen saturation. Abdelrahman Goddard MD LAB - BLOOD ORDERABLES Final R esult Performing Organization Address [facility]/ZIP Co de Phone Number U LABORATORY [facility] [place] [facility] [address], [address] [phone] * Troponin T, High Sensitivity (06/12/2024 7:17 PM PLANT ENGINEERING MANAGER) Troponin T, High Sensitivity <6 <=14 ng/L 06/12/2024 8:03 PM PLANT ENGINEERING MANAGER [facility] Comment: Either a High [...] Unknown Venipuncture / Unknown 06/12/2024 7:17 PM PLANT ENGINEERING MANAGER 06/12/2024 7:32 PM PLANT ENGINEERING MANAGER Abdelrahman Goddard MD LAB - BLOOD ORDERABLES Final R esult Performing Organization Address [facility]/ZIP Co de Phone Number [facility] [place] [facility] [address] [facility], [address] [phone] * (ABNORMAL) Basic metabolic panel (06/12/2024 7:17 PM PLANT ENGINEERING MANAGER) Sodium 139 135 - 145 mmol/L 06/12/2024 8:03 PM PLANT ENGINEERING MANAGER [facility] Potassium 4.3 3.4 - 5.3 mmol/L 06/12/2024 8:03 PM PLANT ENGINEERING MANAGER [facility] Chloride 109(H) 98 - 107 mmol/L 06/12/2024 8:03 PM PLANT ENGINEERING MANAGER [facility] Carbon Dioxide (CO2) 21(L) 22 - 29 mmol/L 06/12/2024 8:03 PM PLANT ENGINEERING MANAGER [facility] Anion Gap 9 7 - 15 mmol/L 06/12/2024 8:03 PM PLANT ENGINEERING MANAGER [facility] Urea Nitrogen 5.9(L) 6.0 - 20.0 mg/dL 06/12/2024 8:03 PM PLANT ENGINEERING MANAGER [facility] Creatinine 0.61 0.51 - 0.95 mg/dL 06/12/2024 8:03 PM PLANT ENGINEERING MANAGER [facility] GFR Estimate >90 >60 mL/min/1.7 3m2 06/12/2024 8:03 PM PLANT ENGINEERING MANAGER [facility] Comment:eGFR calculated 2020 CKD-EPI equation. Calcium 9.4 8.8 - 10.4 mg/dL 06/12/2024 8:03 PM PLANT ENGINEERING MANAGER [facility] Glucose 97 70 - 99 mg/dL 06/12/2024 8:03 PM PLANT ENGINEERING MANAGER [facility] Blood BLOOD SPECIMEN / Unknown Venipuncture / Unknown 06/12/2024 7:17 PM PLANT ENGINEERING MANAGER 06/12/2024 7:32 PM PLANT ENGINEERING MANAGER us Abdelrahman Goddard MD LAB - BLOOD ORDERABLES Final R esult [facility] LAB[facility]AT[facility] [place] [facility] [address] [facility], [address] * (ABNORMAL) INR (06/12/2024 7:17 PM PLANT ENGINEERING MANAGER) INR 1.37(H) 0.85 - 1.15 06/12/2024 7:54 PM PLANT ENGINEERING MANAGER [facility] Blood BLOOD SPECIMEN / Unknown Venipuncture / Unknown 06/12/2024 7:17 PM PLANT ENGINEERING MANAGER 06/12/2024 7:32 PM PLANT ENGINEERING MANAGER us Abdelrahman Goddard MD LAB - BLOOD ORDERABLES Final R esult [facility] [place] [facility] [address] [facility] [facility], [address] * EKG 12-lead, tracing only (06/12/2024 6:37 PM PLANT ENGINEERING MANAGER) Systolic Blood Pressure mmHg RADIOLOGY RESULTS Diastolic Blood Pressure mmHg RADIOLOGY RESULTS Ventricular Rate 94 BPM RAD IOLOGY RESULTS Atrial Rate 94 BPM RADIOLOG Y RESULTS OR Interval 146 ms RADIOLOG Y RESULTS QRS Duration 84 ms RADIOLO GY RESULTS QT 346 ms RADIOLOGY RESULTS QTc 432 ms RADIOLOGY RESULTS P Convent Station 31 degrees RADIOLOGY RESULTS R AXIS 85 degrees RADIOLOGY RESULTS T Convent Station 36 degrees RADIOLOGY RESULTS Interpretation ECG Sinus rhythm Normal ECG Unconfirmed report - interpretation of this ECG is computer generated - see medical record for final interpretation Confirmed by - EMERGENCY ROOM, PHYSICIAN ([id number]), medical transcription editor CLAUDIO ASTORGA ([id number]) on 06/13/2024 7:17:59 AM RADIOLOGY RESULTS 06/12/2024 6:37 PM PLANT ENGINEERING MANAGER 06/13/2024 7:17 AM PLANT ENGINEERING MANAGER us Alex Morton MD ECG ORDERABLES Edited [...] within 2 weeks. $Given 06/15/2024 8:05 AM PLANT ENGINEERING MANAGER 2 puffs $Given 06/14/2024 7:59 PM PLANT ENGINEERING MANAGER 2 puffs $Given 06/14/2024 4:39 PM PLANT ENGINEERING MANAGER 2 puffs albuterol (PROVENTIL HFA/VENTOLIN HFA) inhaler [...] Indications: SepsisIndications:Sepsis $New Bag 06/12/2024 9:31 PM PLANT ENGINEERING MANAGER 500 mg 250 mL /hr azithromycin (ZITHROMAX) 500 mg in sodium chloride 0.9 % 250 mL intermittent infusion Routine, 500 mg, Intravenous, EVERY 24 HOURS, First dose on Wed06/13/24 at 2100, Indications: Acute chest syndromeIndications:Acute chest syndrome $New Bag 06/13/2024 10:04 PM PLANT ENGINEERING MANAGER 500 mg azithromycin (ZITHROMAX) tablet 500 mg Routine, 500 mg, Oral, DAILY, First dose on Wed06/14/24 at 1200, Indications: Community Acquired PneumoniaIndications:Community Acquired Pneumonia $Given 06/15/2024 8:05 AM PLANT ENGINEERING MANAGER 500 mg $Given 06/14/2024 12:38 PM PLANT ENGINEERING MANAGER 500 mg cefTRIAXone (ROCEPHIN) 1 g vial to attach to NS 100 mL bag for ADULTS or NS 50 mL bag for PEDS STAT, 1 g, Intravenous, ONCE, On Wed06/12/24 at 2005, For 1 dose, Lactated Ringer's solution is not compatible with ceftriaxone for injection, Indications: SepsisIndications:Sepsis $New Bag 06/12/2024 8:39 PM PLANT ENGINEERING MANAGER 1 g cefTRIAXone (ROCEPHIN) 2 g vial to attach to NS 100 ml bag for ADULTS or NS 50 ml bag for PEDS Routine, 2 g, Intravenous, EVERY 24 HOURS, First dose on Wed06/13/24 at 2000, Lactated Ringer's solution is not compatible with ceftriaxone for injection, Indications: Acute chest syndromeIndications:Acute chest syndrome $New Bag 06/14/2024 8:00 PM PLANT ENGINEERING MANAGER 2 g $New Bag 06/13/2024 8:16 PM PLANT ENGINEERING MANAGER 2 g diclofenac (VOLTAREN) 1 % topical gel 2 g 2 g, Topical, 4 TIMES DAILY PRN, inflammatory pain, Starting on Wed06/14/24 at 0912, Apply to area of pain. Use supplied dosing card to measure dose. $Given 06/15/2024 8:10 AM PLANT ENGINEERING MANAGER 2 g $Given 06/14/2024 12:38 PM PLANT ENGINEERING MANAGER 2 g diphenhydrAMINE (BENADRYL) capsule 25 mg 25 mg, Oral, EVERY 6 HOURS PRN, itching, Starting on Wed06/12/24 at 2139 $Given 06/14/2024 12:38 PM PLANT ENGINEERING MANAGER 25 mg $Given 06/13/2024 10:54 PM PLANT ENGINEERING MANAGER 25 mg $Given 06/13/2024 12:12 PM PLANT ENGINEERING MANAGER 25 mg diphenhydrAMINE (BENADRYL) injection 25 mg 25 mg, Intravenous, EVERY 6 HOURS PRN, itching, Starting on Wed06/12/24 at 2139 $Given 06/13/2024 5:39 AM PLANT ENGINEERING MANAGER 25 mg $Given 06/12/2024 10:41 PM PLANT ENGINEERING MANAGER 25 mg enoxaparin ANTICOAGULANT (LOVENOX) injection 40 mg 40 mg, Subcutaneous, EVERY 24 HOURS, First dose on Wed06/13/24 at 0800, Contact provider if platelet count drops by 50% or more after enoxaparin initiation OR if platelet count falls below 50 x 10e3/uL $Given 06/15/2024 7:59 AM PLANT ENGINEERING MANAGER 40 mg $Given 06/14/2024 8:29 AM PLANT ENGINEERING MANAGER 40 mg $Given 06/13/2024 7:49 AM PLANT ENGINEERING MANAGER 40 mg FLUoxetine (PROzac) capsule 10 mg 10 mg, Oral, DAILY, First dose on Wed06/13/24 at 0800 $Given 06/14/2024 2:37 PM PLANT ENGINEERING MANAGER 10 mg $Given 06/13/2024 7:50 AM PLANT ENGINEERING MANAGER 10 mg folic acid (FOLVITE) tablet 1 mg 1 mg, Oral, DAILY, First dose on Wed06/13/24 at 0800 $Given 06/15/2024 8:05 AM PLANT ENGINEERING MANAGER 1 mg $Given 06/14/2024 8:29 AM PLANT ENGINEERING MANAGER 1 mg $Given 06/13/2024 7:49 AM PLANT ENGINEERING MANAGER 1 mg heparin lock flush 10 unit/mL [...] For 1 dose $Given 06/12/2024 7:24 PM PLANT ENGINEERING MANAGER 2 mg hydromorphone (DILAUDID) injection 2 mg 2 mg, Intravenous, ONCE, On Wed06/12/24 at 2010, For 1 dose $Given 06/12/2024 8:14 PM PLANT ENGINEERING MANAGER 2 mg hydromorphone (DILAUDID) injection 2 mg 2 mg, Intravenous, EVERY 3 HOURS PRN, moderate pain, IF patient cannot take oral opioid OR IF pain not managed with non-pharmacological, non-opioid, or oral opioid interventions if ordered, Starting on Wed06/12/24 at 2237, May use concomitant with non-opioid analgesics. $Given 06/12/2024 11:31 PM PLANT ENGINEERING MANAGER 2 mg hydromorphone (DILAUDID) injection 2 mg 2 mg, Intravenous, ONCE, On Wed06/12/24 at 2135, For 1 dose $Given 06/12/2024 9:46 PM PLANT ENGINEERING MANAGER 2 mg hydromorphone (DILAUDID) injection 2 mg 2 mg, Intravenous, EVERY 2 HOURS PRN, moderate pain, IF patient cannot take oral opioid OR IF pain not managed with non-pharmacological, non-opioid, or oral opioid interventions if ordered, Starting on Wed06/13/24 at 0132, May use concomitant with non-opioid analgesics. $Given 06/14/2024 12:38 PM PLANT ENGINEERING MANAGER 2 mg $Given 06/14/2024 10:31 AM PLANT ENGINEERING MANAGER 2 mg $Given 06/14/2024 8:29 AM PLANT ENGINEERING MANAGER 2 mg hydromorphone (DILAUDID) injection 2 mg 2 mg, Intravenous, EVERY 2 HOURS, First dose (after last modification) on Wed06/14/24 at 1415, May use concomitant with non-opioid analgesics. $Given 06/15/2024 7:58 AM PLANT ENGINEERING MANAGER 2 mg $Given 06/15/2024 6:01 AM PLANT ENGINEERING MANAGER 2 mg $Given 06/15/2024 4:11 AM PLANT ENGINEERING MANAGER 2 mg hydroxyurea (HYDREA) capsule 1,000 mg 1,000 mg, Oral, 2 TIMES DAILY, First dose on Wed06/12/24 at 2330, Indications: sickle cell anemia, Do not crush May require hepatic and/or renal dose or frequency adjustments. See reference link for guidelines.Indications:sickle cell anemia $Given 06/15/2024 8:06 AM PLANT ENGINEERING MANAGER 1,000 mg $Given 06/14/2024 8:00 PM PLANT ENGINEERING MANAGER 1,000 mg $Given 06/14/2024 8:30 AM PLANT ENGINEERING MANAGER 1,000 mg lactated ringers infusion at 75 mL/hr, Intravenous, CONTINUOUS, Starting on Wed06/12/24 at 2240, Until Wed06/13/24 at 0839 Rate/Dose Verify 06/13/2024 7:02 AM PLANT ENGINEERING MANAGER 75 mL/hr Rate/Dose Verify 06/13/2024 4:52 AM PLANT ENGINEERING MANAGER 75 mL/h r Rate/Dose Verify 06/13/2024 1:35 AM PLANT ENGINEERING MANAGER 75 mL/h r Lidocaine (LIDOCARE) 4 % [...] Wed06/12/24 at 2138 $Given 06/13/2024 1:28 AM PLANT ENGINEERING MANAGER 5 mg menthol (ICY HOT) 5 % [...] Liquid not required. $Given 06/14/2024 9:20 AM PLANT ENGINEERING MANAGER 4 mg ondansetron (ZOFRAN) injection 4 mg 4 mg, Intravenous, ONCE, Administer over 2-5 Minutes, On Wed06/12/24 at 1850, For 1 dose $Given 06/12/2024 7:24 PM PLANT ENGINEERING MANAGER 4 mg ondansetron (ZOFRAN) injection 4 mg 4 mg, Intravenous, EVERY 6 HOURS PRN, nausea/vomiting - 1st line, Administer over 2-5 Minutes, Starting on Wed06/12/24 at 2237, Give IF patient unable to tolerate oral medication. This is Step 1 of nausea and vomiting management. If nausea not resolved in 15 minutes, go to Step 2 prochlorperazine (COMPAZINE). $Given 06/15/2024 4:19 AM PLANT ENGINEERING MANAGER 4 mg senna-docusate (SENOKOT-S/PERICOLACE) 8.6-50 MG per [...] IV dormant line $Given 06/15/2024 6:32 AM PLANT ENGINEERING MANAGER 3 mLs $Given 06/13/2024 8:37 PM PLANT ENGINEERING MANAGER 3 mLs $Given 06/13/2024 2:12 PM PLANT ENGINEERING MANAGER 3 mLs sodium chloride (PF) 0.9% PF flush 3 mL 3 mL, Intracatheter, EVERY 1 MIN PRN, line flush, other, to ensure patency or to lock dormant line, Starting on Wed06/12/24 at 2237 $Given 06/14/2024 2:4 2 PM PLANT ENGINEERING MANAGER 3 mLs $Given 06/14/2024 8:30 AM PLANT ENGINEERING MANAGER 3 mLs $Given 06/14/2024 1:32 AM PLANT ENGINEERING MANAGER 3 mLs sodium chloride 0.9% BOLUS 1,000 mL Intravenous, 1,000 mL, ONCE, at 1,000 mL/hr, Administer over 1 Hours, On Wed06/12/24 at 1850, For 1 dose $New Bag 06/12/2024 7:22 PM PLANT ENGINEERING MANAGER 1,000 mLs 1000 mL/hr documented in this encounter Active and Recently Administered Medications Times are shown in PLANT ENGINEERING MANAGER. Scheduled Medication Order 06/13/2024 06/14/2024 06/15/2024 albuterol [...] RN) 2000 ($New Bag - Provider: Kathy Levy RN) 0142 (Stopped - Provider: Kathy Levy RN) [...] Provider: Kathy Levy RN)0758 ($Given - Provider: Clya Avina RN)1000 (Canceled Entry - Provider: Orders [...] dose on [place] 06/15/24 at 0910, To flush and lock each [...] Shauna Cuadra RN)1215 (Stopped - Provider: Kiki Caal, SOFIA) PRN [...] Xu Ravi RN)0958 ($Given - Provider: Xu Ravi, SOFIA)1212 ($Given - Provider: Yolanda Huang RN)1411 ($Given - Provider: Kiki Caal, SOFIA)1621 ($Given - Provider: Kiki Caal, SOFIA)1833 ($Given - Provider: Kiki Caal RN)2033 ($Given - Provider: Geovanna Dean RN)2254 ($Given - Provider: Geovanna Dean RN) 0132 ($Given - Provider: Geovanna Dean RN)0404 ($Given - Provider: Geovanna Dean RN)0625 ($Given - Provider: Geovanna Dean RN)0829 ($Given - Provider: Clay Avina, SOFIA)1031 ($Given - Provider: Clay Avina RN)1238 ($Given [...] at 2138 0128 ($Given - Provider: Shauna Cuadra, SOFIA) menthol (ICY HOT) 5 % patch 1 [...] 0920 ($Given - Provider: Clay Avina RN) 9136 (See Alternative - Provider: Kathy Levy RN) [...] (See Alternative - Provider: Clay Avina RN) 7366 ($Given - Provider: Kathy Levy RN) senna-docusate [...] Geovanna Dean RN)0830 ($Given - Provider: Clay Avina, RN)1442 ($Given - Provider: Clay Avina RN) [...] stools. documented in this encounter Care Teams Corrections Unit Supervisor Relationship Specialty Start Date End Date No Ref-Primary, Physician PCP - General 03/15/24 06/17/24 Mor Ramsey Medical Student 04/03/24 Case Samuel MD [address] [place] [place] [address], [address] [place] [address] Assigned Pediatric Specialist Provider 05/18/24 Juhi Benson, RN Specialty Manager Placement Hematology & Oncology 05/29/24 documented as of this encounter
--- OUTSIDE RECORDS SUMMARY | 2024-07-03 20:34 | XMS_ITS | Encounter Summary ---
Author Organization [facility] Address [address] [place] [id number] Care Team Providers Care Blowing Engineer Name Role Phone R[employer]Elvir[employer] Unavailable Unavailable Case Samuel MD Unavailable [phone] Juhi Benson RN Unavailable Unavailable Veronica Joseph MD Primary Care Provider [phone] Reason for Visit * Reason Comments Sickle Cell Pain Crisis Encounter Details Date Type Department Care Team (Late st Contact Info) Description 07/01/2024 6:18 PM DREDGE PIPE OPERATOR - 07/01/2024 9:43 PM DREDGE PIPE OPERATOR Emergency [facility] Emergency Department [address] [place] [phone] Andres Sheikh MD [address] [place] [phone] Sickle cell pain crisis (H) Discharge Disposition: [...] on file Legal Sex Female 8:25 AM DREDGE PIPE OPERATOR Gender Identity Not on file Sexual Orientation Not on file documented as of this encounter Last Filed Vital Signs Vital Sign Reading Time Taken Comments Blood Pressure 130/72 07/01/2024 6:13 PM DREDGE PIPE OPERATOR Pulse 112 07/01/2024 6:13 PM DREDGE PIPE OPERATOR Temperature 36.8 C (98.2 F) 07/01/2024 6:13 PM DREDGE PIPE OPERATOR Respiratory Rate 20 07/01/2024 6:13 PM DREDGE PIPE OPERATOR Oxygen Saturation 97% 07/01/2024 6:13 PM DREDGE PIPE OPERATOR Inhaled Oxygen Concentration - - Weight - - Height - - Body Mass Index - - documented in this encounter Discharge Instructions * Discharge Instructions* Andres Sheikh MD - 07/01/2024 9:28 PM DREDGE PIPE OPERATOR Please follow-up with your signal circuit designer about your ER visit and your hemoglobin of 7.1. Return to the ER for any new or worsening symptoms. Particular lightheadedness presyncope excetra. 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 40 tablet 06/29/2024 hydroxyurea (HYDREA) 500 MG capsuleIndications :History of [...] 05/01/2024 naloxone (NARCAN) 4 MG/0.1ML nasal spray [place] 1 spray (4 mg) into one nostril alternating nostrils as needed for opioid reversal (for opiate overdose if not breathing and unconscious. have your family member watch video on how to use/read information sheet). every 2-3 minutes until assistance arrives 2 each 06/06/2024 documented as of this encounter ED Notes * Andres Sheikh MD - 07/01/2024 6:23 PM CST ED Provider Note [facility] History Chief Complaint Patient presents with Sickle Cell Pain Crisis HPI Gianna Hernández is a 29 year old female PMH of acute chest syndrome, opioid dependence, avascular necrosis of bone of left hip, sickle cell pain crisis, PE who presents to the ER for evaluation ofa sickle cell pain crisis. Pt states that she was rx diagnosed with a PE and put on eliquis, and is on the third day of takingthat with no missed doses. Pt denies no new chest pain, shortness of breath, cough, and fever. She has sickle cell pain around the rest of her body. She has a care plan in place, and did try her rescue medications at home. She denies swollen joints or rashes. She notes that she went to a earlier and doesn't know if the emotions triggered it as she does not do well in those situations. No new respiratory or abdominal symptoms. 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 Physical Exam BP: 130/72 Pulse: 112 Temp: 98.2 ??F (36.8 ??C) Resp: 20 SpO2: 97 % Physical Exam General: awake, alert, NAD Head: normal cephalic HEENT: pupils equal, conjugate gaze intact Neck: Supple CV: tachycardic rate, no murmur Lungs: clear to auscultation Abd: soft, non-tender, no guarding, no peritoneal signs EXT: lower extremities without swelling or edema Neuro: awake, answers questions appropriately. No focal deficits noted ED Course, Procedures, & Data Procedures Results for orders placed or performed during the hospital encounter of 07/01/24 Comprehensive metabolic panel Status: Abnormal Result Value Ref Range Sodium 136 135 - 145 mmol/L Potassium 4.9 3.4 - 5.3 mmol/L Carbon Dioxide (CO2) 20 (L) 22 - 29 mmol/L Anion Gap 10 7 - 15 mmol/L Urea Nitrogen 13.4 6.0 - 20.0 mg/dL Creatinine 0.65 0.51 - 0.95 mg/dL GFR Estimate >90 >60 mL/min/1.73m2 Calcium 8.8 8.8 - 10.4 mg/dL Chloride 106 98 - 107 mmol/L Glucose 102 (H) 70 - 99 mg/dL Alkaline Phosphatase 104 40 - 150 U/L AST 57 (H) 0 - 45 U/L ALT 53 (H) 0 - 50 U/L Protein Total 7.3 6.4 - 8.3 g/dL Albumin 4.1 3.5 - 5.2 g/dL Bilirubin Total 1.4 (H) <=1.2 mg/dL Reticulocyte count Status: Abnormal Result Value Ref Range % Reticulocyte 7.3 (H) 0.5 - 2.0 % Absolute Reticulocyte 0.159 (H) 0.025 - 0.095 10e6/uL CBC with platelets and differential Status: Abnormal (Preliminary result) Result Value Ref Range WBC Count 7.7 4.0 - 11.0 10e3/uL RBC Count 2.18 (L) 3.80 - 5.20 10e6/uL Hemoglobin 7.1 (L) 11.7 - 15.7 g/dL Hematocrit 20.7 (L) 35.0 - 47.0 % MCV 95 78 - 100 fL MCH 32.6 26.5 - 33.0 pg MCHC 34.3 31.5 - 36.5 g/dL RDW 18.6 (H) 10.0 - 15.0 % Platelet Count 383 150 - 450 10e3/uL CBC with platelets differential Status: Abnormal (In process) Narrative The following orders were created for panel order CBC with platelets differential. Procedure Abnormality Status --------- ------ CBC with platelets and ...[[id number]] Abnormal Preliminary result Manual Differential[[id number]] Manual Differential[[id number]] In process Please view results for these tests on the individual orders. Medications heparin lock flush 100 unit/mL injection 100 Units (has no administration in time range) hydromorphone (DILAUDID) injection 2 mg (2 mg Intravenous $Given 07/01/241853) lactated ringers BOLUS 1,000 mL (1,000 mLs Intravenous $New Bag 07/01/241854) diphenhydrAMINE (BENADRYL) capsule 50 mg (50 mg Oral $Given 07/01/241854) ondansetron (ZOFRAN) injection 8 mg (8 mg Intravenous $Given 07/01/241853) hydromorphone (DILAUDID) injection 2 mg (2 mg Intravenous $Given 07/01/242121) Labs Ordered and Resulted from Time of ED Arrival to Time of ED Departure COMPREHENSIVE METABOLIC PANEL - Abnormal Result Value Sodium 136 Potassium 4.9 Carbon Dioxide (CO2) 20 (*) Anion Gap 10 Urea Nitrogen 13.4 Creatinine 0.65 GFR Estimate >90 Calcium 8.8 Chloride 106 Glucose 102 (*) Alkaline Phosphatase 104 AST 57 (*) ALT 53 (*) Protein Total 7.3 Albumin 4.1 Bilirubin Total 1.4 (*) RETICULOCYTE COUNT - Abnormal % Reticulocyte 7.3 (*) Absolute Reticulocyte 0.159 (*) CBC WITH PLATELETS AND DIFFERENTIAL - Abnormal WBC Count 7.7 RBC Count 2.18 (*) Hemoglobin 7.1 (*) Hematocrit 20.7 (*) MCV 95 MCH 32.6 MCHC 34.3 RDW 18.6 (*) Platelet Count 383 MANUAL DIFFERENTIAL No orders to display Critical care was not performed. Medical Decision Making The patient's presentation was of moderate complexity (a chronic illness mild to moderate exacerbation, progression, or side effect of treatment). The patient's evaluation involved: review of external note(s) from 2 sources (see separate area of note for details) ordering and/or review of 3+ test(s) in this encounter (see separate area of note for details) The patient's management necessitated high risk (a parenteral controlled substance). Assessment & Plan Gianna is a 29-year-old well-appearing nontoxic female who presents with pain secondary from hersickle cell crisis. She was recently diagnosed with PE but denies chest pain, shortness of breath, reports has been compliant on her anticoagulation. Denies new infectious symptoms, skin changes extremity swelling excetra. Will order basic labs and treat per her care plan. Patient Imaging per her care plan. Labs notable for a hemoglobin of 7.1 which is about 1 g less than her baseline at 8. She does have an elevated reticulocyte count ruling out bone marrow failure. Patient had 3 doses of her pain medication her pain was improved she is wanting to discharge. I didtalk to the signal circuit designer about a hemoglobin of 7 they are okay with her discharging given that she is asymptomatic, she is denying shortness of breath syncope or presyncope. She can follow-up with hematology on Wednesday. She understands. If she has new or worsening symptoms she is to return to the ER I have reviewed the nursing notes. I have reviewed the findings, diagnosis, plan and need for follow up with the patient. New Prescriptions No medications on file Final diagnoses: Sickle cell pain crisis (H) I, Tatiana Wilkinson, am serving as a trained medical instructor to document services personally performed by Andres Sheikh MD, based on the provider's statements to me. I, Andres Sheikh MD, was physically present and have reviewed and verified the accuracy of this note documented by Tatiana Wilkinson. Andres Sheikh MD [facility] 07/01/2024 Andres Sheikh MD 07/01/243 GE PIPE OPERATOR * Lebron Aponte, RN - 07/01/2024 6:15 PM CST Pt ambulatory to triage with CC of sickle cell pain, generalized. Hx acute chest, states this pain does not feel like acute chest. Onset 2 days ago, discharge 3 days ago (was admitted for blood clots). Tearful in triage, took all home meds without relief. Triage Assessment (Adult) Row Name 07/01/241814 Triage Assessment Airway WDL WDL Respiratory WDL Respiratory WDL WDL Skin Circulation/Temperature WDL Skin Circulation/Temperature WDL WDL Cardiac WDL Cardiac WDL WDL Peripheral/Neurovascular WDL Peripheral Neurovascular WDL WDL Cognitive/Neuro/Behavioral WDL Cognitive/Neuro/Behavioral WDL WDL [place] Coma Scale Best Eye Response 4-->(E4) spontaneous Best Motor Response 6-->(M6) obeys commands Best Verbal Response 5-->(V5) oriented [place] Coma Scale Score 15 GE PIPE OPERATOR documented in this encounter Plan of Treatment Upcoming Encounters Date Type Department Care Team (Late st Contact Info) Description 07/04/2024 9:00 AM CDT Lab [facility] [address] [place] [address] Case Samuel MD [address] [place] [address], [address] [place] [address] 07/06/2024 8:00 AM CDT Appointment [facility] [place] [address] [place] [phone] Case Samuel MD [address], [address] [place] [address] 07/10/2024 11:30 AM CDT Oncology [facility] [address] [place] [phone] Case Samuel MD [address], [address] [place] [address] documented as of this encounter Goals Goal Patient Goal Type Associated Problems Recent Progress Patient-Stated? Author Pain Management General On track( 025 12:40 PM DREDGE PIPE OPERATOR) Yes Juhi Benson, RN Note: Goal [...] Date/Time Associated Diagnosis Comments MANUAL DIFFERENTIAL STAT 07/01/2024 8 :00 PM DREDGE PIPE OPERATOR CBC WITH PLATELETS AND DIFFERENTIAL STAT 07/01/2024 8:00 PM DREDGE PIPE OPERATOR CBC WITH PLATELETS & DIFFERENTIAL STAT 07/01/2024 8:00 PM DREDGE PIPE OPERATOR RETICULOCYTE COUNT STAT 07/01/2024 8: 00 PM DREDGE PIPE OPERATOR COMPREHENSIVE METABOLIC PANEL STAT 07/01/2024 8:00 PM DREDGE PIPE OPERATOR documented in this encounter Results * (ABNORMAL) Manual Differential (07/01/2024 8:00 PM DREDGE PIPE OPERATOR) % Neutrophils 63 % JARET 07/01/2024 9:50 PM DREDGE PIPE OPERATOR [facility] % Lymphocytes 25 % JARET 07/01/2024 9:50 PM DREDGE PIPE OPERATOR [facility] % Monocytes 8 % JARET 07/01/2024 9:50 PM DREDGE PIPE OPERATOR [facility] % Eosinophils 0 % JARET 07/01/2024 9:50 PM DREDGE PIPE OPERATOR [facility] % Basophils 4 % JARET 07/01/2024 9:50 PM DREDGE PIPE OPERATOR [facility] % Myelocytes 0 % JARET 07/01/2024 9:50 PM DREDGE PIPE OPERATOR [facility] Absolute Neutrophils 4.9 1.6 - 8.3 10e3/uL JARET 07/01/2024 9:50 PM DREDGE PIPE OPERATOR [facility] Absolute Lymphocytes 1.9 0.8 - 5.3 10e3/uL JARET 07/01/2024 9:50 PM DREDGE PIPE OPERATOR [facility] Absolute Monocytes 0.6 0.0 - 1.3 10e3/uL JARET 07/01/2024 9:50 PM DREDGE PIPE OPERATOR [facility] Absolute Eosinophils 0.0 0.0 - 0.7 10e3/uL JARET 07/01/2024 9:50 PM DREDGE PIPE OPERATOR [facility] Absolute Basophils 0.3(H) 0.0 - 0.2 10e3/uL JARET 07/01/2024 9:50 PM DREDGE PIPE OPERATOR [facility] Absolute Myelocytes 0.0 <=0.0 10e3/uL JARET 07/01/2024 9:50 PM DREDGE PIPE OPERATOR [facility] NRBCs per 100 WBC 17 % JARET 07/01/2024 9:50 PM DREDGE PIPE OPERATOR [facility] Absolute NRBCs 1.3 10e3/uL JARET 07/01/2024 9:50 PM DREDGE PIPE OPERATOR [facility] RBC Morphology Confirmed RBC Indices JARET 07/01/2024 9:50 PM DREDGE PIPE OPERATOR [facility] Platelet Assessment Automated Count Confirmed. Platelet morphology is normal. Automated Count Confirmed. Platelet morphology is normal. JARET 07/01/2024 9:50 PM DREDGE PIPE OPERATOR [facility] Polychromasia Slight(A) None Seen JARET 07/01/2024 9:50 PM DREDGE PIPE OPERATOR [facility] Sickle Cells Slight(A) None Seen JARET 07/01/2024 9:50 PM DREDGE PIPE OPERATOR [facility] Target Cells Slight(A) None Seen [facility] 07/01/2024 9:50 PM DREDGE PIPE OPERATOR [facility] Blood BLOOD SPECIMEN / Unknown Venipuncture / Unknown 07/01/2024 8:00 PM DREDGE PIPE OPERATOR 07/01/2024 8:07 PM DREDGE PIPE OPERATOR Narrative [facility] - 07/01/2024 9:50 PM DREDGE PIPE OPERATOR Differential done on Albumin treated blood due to Smudge Cells. us Andres Sheikh MD LAB - BLOOD ORDERABLES [facility] [address] Result [facility] [place] [facility] [address] [facility], [address] [phone] * (ABNORMAL) CBC with platelets and differential (07/01/2024 8:00 PM DREDGE PIPE OPERATOR) WBC Count 7.7 4.0 - 11.0 10e3/uL 07/01/2024 9:50 PM DREDGE PIPE OPERATOR [facility] RBC Count 2.18(L) 3.80 - 5.20 10e6/uL 07/01/2024 9:50 PM DREDGE PIPE OPERATOR [facility] Hemoglobin 7.1(L) 11.7 - 15.7 g/dL 07/01/2024 9:50 PM DREDGE PIPE OPERATOR [facility] Hematocrit 20.7(L) 35.0 - 47.0 % 07/01/2024 9:50 PM DREDGE PIPE OPERATOR [facility] MCV 95 78 - 100 fL 07/01/2024 9:50 PM DREDGE PIPE OPERATOR [facility] MCH 32.6 26.5 - 33.0 pg 07/01/2024 9:50 PM DREDGE PIPE OPERATOR [facility] MCHC 34.3 31.5 - 36.5 g/dL 07/01/2024 9:50 PM DREDGE PIPE OPERATOR [facility] RDW 18.6(H) 10.0 - 15.0 % 07/01/2024 9:50 PM DREDGE PIPE OPERATOR [facility] Platelet Count 383 150 - 450 10e3/uL 07/01/2024 9:50 PM DREDGE PIPE OPERATOR [facility] Blood BLOOD SPECIMEN / Unknown Venipuncture / Unknown 07/01/2024 8:00 PM DREDGE PIPE OPERATOR 07/01/2024 8:07 PM DREDGE PIPE OPERATOR Andres Sheikh MD LAB - BLOOD ORDERABLES Liss l Result Performing Organization Address [facility]/ZIP Co de Phone Number [facility] [place] [address] [facility], [address] * (ABNORMAL) Reticulocyte count (07/01/2024 8:00 PM DREDGE PIPE OPERATOR) % Reticulocyte 7.3(H) 0.5 - 2.0 % 07/01/2024 8:13 PM DREDGE PIPE OPERATOR [facility] Absolute Reticulocyte 0.159(H) 0.025 - 0.095 10e6/uL 07/01/2024 8:13 PM DREDGE PIPE OPERATOR [facility] Blood BLOOD SPECIMEN / Unknown Venipuncture / Unknown 07/01/2024 8:00 PM DREDGE PIPE OPERATOR 07/01/2024 8:07 PM DREDGE PIPE OPERATOR Andres Sheikh MD LAB - BLOOD ORDERABLES Liss l Result Performing Organization Address City/[facility]/ZIP Co de Phone Number [facility] [place] [address] [facility], [address] * (ABNORMAL) Comprehensive metabolic panel (07/01/2024 8:00 PM DREDGE PIPE OPERATOR) Pathologist [facility] Sodium 136 135 - 145 mmol/L 07/01/2024 8:37 PM DREDGE PIPE OPERATOR [facility] Potassium 4.9 3.4 - 5.3 mmol/L 07/01/2024 8:37 PM DREDGE PIPE OPERATOR [facility] Carbon Dioxide (CO2) 20(L) 22 - 29 mmol/L 07/01/2024 8:37 PM DREDGE PIPE OPERATOR [facility] Anion Gap 10 7 - 15 mmol/L 07/01/2024 8:37 PM DREDGE PIPE OPERATOR [facility] Urea Nitrogen 13.4 6.0 - 20.0 mg/dL 07/01/2024 8:37 PM DREDGE PIPE OPERATOR [facility] Creatinine 0.65 0.51 - 0.95 mg/dL 07/01/2024 8:37 PM DREDGE PIPE OPERATOR [facility] GFR Estimate >90 >60 mL/min/1.7 3m2 07/01/2024 8:37 PM DREDGE PIPE OPERATOR [facility] Comment:eGFR calculated us2020 CKD-EPI equation. Calcium 8.8 8.8 - 10.4 mg/dL 07/01/2024 8:37 PM DREDGE PIPE OPERATOR [facility] Chloride 106 98 - 107 mmol/L 07/01/2024 8:37 PM DREDGE PIPE OPERATOR [facility] Glucose 102(H) 70 - 99 mg/dL 07/01/2024 8:37 PM DREDGE PIPE OPERATOR [facility] Alkaline Phosphatase 104 40 - 150 U/L 07/01/2024 8:37 PM DREDGE PIPE OPERATOR [facility] AST 57(H) 0 - 45 U/L 07/01/2024 8:37 PM DREDGE PIPE OPERATOR [facility] ALT 53(H) 0 - 50 U/L 07/01/2024 8:37 PM DREDGE PIPE OPERATOR [facility] Protein Total 7.3 6.4 - 8.3 g/dL 07/01/2024 8:37 PM DREDGE PIPE OPERATOR [facility] Albumin 4.1 3.5 - 5.2 g/dL 07/01/2024 8:37 PM DREDGE PIPE OPERATOR [facility] Bilirubin Total 1.4(H) <=1.2 mg/dL 07/01/2024 8:37 PM DREDGE PIPE OPERATOR [facility] Blood BLOOD SPECIMEN / Unknown Venipuncture / Unknown 07/01/2024 8:00 PM DREDGE PIPE OPERATOR 07/01/2024 8:07 PM DREDGE PIPE OPERATOR us Andres Sheikh MD LAB - BLOOD ORDERABLES [place] [address] Result [facility] [place] [address] [facility], [address] [place] [address] documented in this encounter Visit Diagnoses Diagnosis 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 documented in this encounter Administered Medications Inactive Administered Medications - up to 3 most recent administrations Medication Order MAR Action Action Date Dose Rate Site diphenhydrAMINE (BENADRYL) capsule 50 mg 50 mg, Oral, ONCE, On 07/01/24 at 1835, For 1 dose $Given 07/01/2024 6:55 PM DREDGE PIPE OPERATOR 50 mg heparin lock flush 100 unit/mL injection 100 Units 100 Units, Intravenous, ONCE, On 07/01/24 at 2130, For 1 dose $Given 07/01/2024 9:40 PM DREDGE PIPE OPERATOR 100 Units hydromorphone (DILAUDID) injection 2 mg 2 mg, Intravenous, ONCE, On 07/01/24 at 1835, For 1 dose $Given 07/01/2024 6:54 PM DREDGE PIPE OPERATOR 2 mg hydromorphone (DILAUDID) injection 2 mg 2 mg, Intravenous, EVERY 1 HOUR PRN, severe pain, Starting on 07/01/24 at 2001, For 2 doses $Given 07/01/2024 9:22 PM DREDGE PIPE OPERATOR 2 mg $Given 07/01/2024 8:05 PM DREDGE PIPE OPERATOR 2 mg lactated ringers BOLUS 1,000 mL Intravenous, 1,000 mL, ONCE, at 1,000 mL/hr, Administer over 1 Hours, On 07/01/24 at 183, For 1 dose $New Bag 07/01/2024 6:55 PM DREDGE PIPE OPERATOR 1,000 mLs 1000 mL/hr ondansetron (ZOFRAN) injection 8 mg 8 mg, Intravenous, ONCE, Administer over 2-5 Minutes, On 07/01/24 at 183, For 1 dose $Given 07/01/2024 6:54 PM DREDGE PIPE OPERATOR 8 mg documented in this encounter Active and Recently Administered Medications Times are shown in DREDGE PIPE OPERATOR. Scheduled Medication Order 06/29/2024 06/30/2024 07/01/2024 diphenhydrAMINE (BENADRYL) capsule 50 mg (COMPLETED) 50 mg, Oral, ONCE, On 07/01/24 at 1835, For 1 dose 1854 ($Given - Provi nas: Woody Wade RN) heparin lock flush 100 unit/mL injection 100 Units (COMPLETED) 100 Units, Intravenous, ONCE, On 07/01/24 at 2130, For 1 dose 2139 ($Given - Provi nas: Tristian Sánchez RN) hydromorphone (DILAUDID) injection 2 mg (COMPLETED) 2 mg, Intravenous, ONCE, On 07/01/24 at 1835, For 1 dose 1853 ($Given - Provi nas: Woody Wade RN) lactated ringers BOLUS 1,000 mL (COMPLETED) Intravenous, 1,000 mL, ONCE, at 1,000 mL/hr, Administer over 1 Hours, On 07/01/24 at 1835, For 1 dose 1854 ($New Bag - Pro vider: Woody Wade RN)2142 (Stopped - Provider: Tristian Sánchez, RN) ondansetron (ZOFRAN) injection 8 mg (COMPLETED) 8 mg, Intravenous, ONCE, Administer over 2-5 Minutes, On 07/01/24 at 1835, For 1 dose 1853 ($Given - Provi nas: Woody Wade RN) PRN Medication Order 06/29/2024 06/30/2024 07/01/2024 hydromorphone (DILAUDID) injection 2 mg (COMPLETED) 2 mg, Intravenous, EVERY 1 HOUR PRN, severe pain, Starting on 07/01/24 at 2002, For 2 doses 2004 ($Given - Provi nas: Ayo Suarez RN)2121 ($Given - Provider: Tristian Sánchez RN) documented in this encounter Care Teams Blowing Engineer Relationship Specialty Start Date End Date Veronica Joseph MD [address] [place] [address] PCP - General Family Medicine 06/18/24 Mor Ramsey Medical Student 04/03/24 Case Samuel MD [address] [place] [address], [address] [place] [address] Assigned Pediatric Specialist Provider 05/18/24 Juhi Benson, SOFIA Specialty Director Of Collections And Archives Hematology & Oncology 05/29/24 documented as of this encounter
--- OUTSIDE RECORDS SUMMARY | 2024-07-03 20:34 | XMS_ITS | Encounter Summary ---
Author Organization [facility] Address [address] [place] [address]. [place] [address] Care Team Providers Care Jig Inspector Name Role Phone Roxy Mor Unavailable Unavailable Case Samuel MD Unavailable [phone] Juhi Benson RN Unavailable Unavailable Veronica Joseph MD Primary Care Provider [phone] Encounter Details Date Type Department Care Team (Latest Contact Info) Description 07/01/2024 Travel Social History Tobacco Use Types Packs/Day [...] file Legal Sex Female 8:25 AM AIRCRAFT LAUNCH AND RECOVERY TECHNICIAN Gender Identity Not on file Sexual Orientation Not on file documented as of this encounter Plan of Treatment Upcoming Encounters Date Type Department Care Team (Late st Contact Info) Description 07/04/2024 9:00 AM CDT Lab [facility] [address] [phone] Case Samuel MD [address] [place], [place] [address], [address]OM [address] [phone] 07/06/2024 8:00 AM CDT Appointment [facility] [address] [phone] Case Samuel MD [address] [place], [place] [address], [address] [address] 07/10/2024 11:30 AM CDT Oncology Visit [facility] [address] [phone] Case Samuel MD [address] [place], [place] [address], [address] [address] documented as of this encounter Goals Goal Patient Goal Type Associated Problems Recent Progress Patient-Stated? Author Pain Management General On track( 025 12:40 PM AIRCRAFT LAUNCH AND RECOVERY TECHNICIAN) Yes Juhi Benson, RN Note: Goal [...] on filedocumented in this encounter Care Teams Jig Inspector Relationship Specialty Start Date End Date Veronica Joseph MD [address] [place] [address] PCP - General Family Medicine 06/18/24 Mor Ramsey Medical Student 04/03/24 Case Samuel MD [address] [place] [address], [address] [place] [address] Assigned Pediatric Specialist Provider 05/18/24 Juhi Benson, RN Specialty Staff Technologist Hematology & Oncology 05/29/24 documented as of this encounter
--- OUTSIDE RECORDS SUMMARY | 2024-07-03 20:34 | XMS_ITS | Encounter Summary ---
Author Organization [facility] Address [address] [place] [address]. [place] [address] Care Team Providers Care Proof Carrier Name Role Phone [employer] Unavailable Unavailable Case Samuel MD Unavailable [phone] Juhi Benson RN Unavailable Unavailable Veronica Joseph MD Primary Care Provider [phone] Reason for Visit * Reason Comments Abnormal Labs hemoglobin Sickle Cell Pain Crisis Back/ legs Encounter Details Date Type Department Care Team (Late st Contact Info) Description 07/02/2024 5:47 PM CDT - 07/02/2024 9:37 PM CDT Emergency [facility] Emergency Department [address] [place] [phone] Vasiliy Lutz, [address] [id number] Sickle cell pain crisis (H) Discharge Disposition: [...] on file Legal Sex Female 8:25 AM [employer] Gender Identity Not on file Sexual Orientation Not on file documented as of this encounter Last Filed Vital Signs Vital Sign Reading Time Taken Comments Blood Pressure 112/61 07/02/2024 5:44 PM CDT Pulse 101 07/02/2024 5:44 PM CDT Temperature 37 C (98.6 F) 07/02/2024 5:44 PM CDT Respiratory Rate 16 07/02/2024 5:44 PM CDT Oxygen Saturation 96% 07/02/2024 5:44 PM CDT Inhaled Oxygen Concentration - - Weight 50.8 kg (112 lb) 07/02/2024 5:44 PM CDT Height 154.9 cm (5' 1) 07/02/2024 5:44 PM CDT Body Mass Index 21.16 07/02/2024 5:44 PM CDT documented in this encounter Discharge Instructions * Discharge Instructions* Vasiliy Lutz, - 07/02/2024 9:29 PM CDT Return to the emergency department if symptoms continue, get worse, there are any new symptoms or any cause for concern. documented in this encounter Medications at Time [...] 05/01/2024 naloxone (NARCAN) 4 MG/0.1ML nasal spray [place] 1 spray (4 mg) into one nostril alternating nostrils as needed for opioid reversal (for opiate overdose if not breathing and unconscious. have your family member watch video on how to use/read information sheet). every 2-3 minutes until assistance arrives 2 each 06/06/2024 documented as of this encounter ED Notes * Vasiliy Lutz, DO - 07/02/2024 5:50 PM CDT Images from the original note were not included. [facility] ([facility]) 07/02/24 ED PROVIDER NOTE History Chief Complaint Patient presents with Abnormal Labs hemoglobin Sickle Cell Pain Crisis Back/ legs The history is provided by the patient and medical records. 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 Patient notes pain in her bilateral hips/legs as well as back. This is similar to previous episodes of sickle cell pain. Patient also notesincreased fatigue with this. She states that she was seen yesterday and upon arrival at home fell asleep. Woke up having slept longer than usual. She notes continued sickle cell pain. She is worried that her hemoglobin has been decreasing and that is causing her fatigue. Yesterday hemoglobin was found to be 7.1 states she often gets transfused around 7 but opted to hold off at this time. No othersymptoms noted. Patient was seen here in the ED yesterday with sickle cell pain crisis, received pain meds per her care plan and improved. Labs were notable for Hgb of 7.1 decreased from her baseline of around 8, but remained asymptomatic of this and she was discharged home with instructions to follow-up with hematology on 07/03. Past Medical History Past Medical History: Diagnosis [...] Alcohol use: Not Currently Drug use: Never Past medical history, past surgical history, medications, allergies, family history, and social history were reviewed with the patient. No additional pertinent items. A complete review of systems was performed with pertinent positives and negatives noted in the HPI,and all other systems negative. Physical Exam BP: 112/61 Pulse: 101 Temp: 98.6 ??F (37 ??C) Resp: 16 Height: 154.9 cm (5' 1) Weight: 50.8 kg (112 lb) SpO2: 96 % Physical Exam Vitals and nursing note reviewed. Constitutional: General: She is not in acute distress. Appearance: She is well-developed. She is not diaphoretic. HENT: Head: Normocephalic and atraumatic. Mouth/Throat: Pharynx: No oropharyngeal exudate. Eyes: General: No scleral icterus. Right eye: No discharge. Left eye: No discharge. Pupils: Pupils are equal, round, and reactive to light. Cardiovascular: Rate and Rhythm: Regular rhythm. Tachycardia present. Heart sounds: Normal heart sounds. No murmur heard. No friction rub. No gallop. Pulmonary: Effort: Pulmonary effort is normal. No respiratory distress. Breath sounds: Normal breath sounds. No wheezing. Chest: Chest wall: No tenderness. Abdominal: General: Bowel sounds are normal. There is no distension. Palpations: Abdomen is soft. Tenderness: There is no abdominal tenderness. Musculoskeletal: General: No tenderness or deformity. Normal range of motion. Cervical back: Normal range of motion and neck supple. Skin: General: Skin is warm and dry. Coloration: Skin is not pale. Findings: No erythema or rash. Neurological: Mental Status: She is alert and oriented to person, place, and time. Cranial Nerves: No cranial nerve deficit. ED Course, Procedures, & Data Procedures No results found for any visits on 07/02/24. Medications - No data to display Labs Ordered and Resulted from Time of ED Arrival to Time of ED Departure - No data to display No orders to display Assessment & Plan This is a 29-year-old female with a history of sickle cell disease who presents with bilateral leg and back pain. This is similar to previous episodes of sickle cell pain crisis. Patient also notes increased fatigue and is concerned that her hemoglobin is dropping. Exam demonstrates no acute abnormalities. Lab work shows acute abnormalities. Patient was given hydromorphone, LR, ondansetron, and di phenhydramine. Patient felt improved after these interventions. We will discharge with return precautions. I have reviewed the nursing notes. I have reviewed the findings, diagnosis, plan and need for follow up with the patient. New Prescriptions No medications on file Final diagnoses: None Vasiliy Lutz DO [facility] 07/02/2024 Vasiliy Luzt DO 07/03/24 0128 * Hawa Mosqueda RN - 07/02/2024 5:45 PM CDT Triage Assessment & Note: BP 112/61 Pulse 101 Temp 98.6 ??F (37 ??C) (Oral) Resp 16 Ht 1.549 m (5' 1) Wt 50.8 kg (112 lb) SpO2 96% BMI 21.16 kg/m?? Patient presents with: Sickle cell pt comes ambulatory to triage with reports of low hemoglobin andleg/ back pain. Pt seen in ED for similar issues 07/01/24. No reports of fever, cough, SOB, CP, or travel. Home Treatments/Remedies: Home medications Febrile / Afebrile: afebrile Duration of C/o: ongoing issues Hawa Sotelo RN July 02, 2024 documented in this encounter Plan of Treatment Upcoming Encounters Date Type Department Care Team (Late st Contact Info) Description 07/04/2024 9:[address] [facility] [address] [phone] Case Samuel MD [address] [place], [place] [address], ROOM [address] [id number] 07/06/2024 8:00 AM CDT Appointment [facility] [address] [phone] Case Samuel MD [address] [place], [place] [address], ROOM [address] [address] 07/10/2024 11:30 AM CDT Oncology Visit [facility] [address] [phone] Case Samuel MD [address] [place], [place] [address], ROOM [address] [id number] documented as of this encounter Goals Goal Patient Goal Type Associated Problems Recent Progress Patient-Stated? Author Pain Management General On track( 025 12:40 PM [employer]) Yes Juhi Benson, RN Note: Goal Statement: [...] Comments CBC WITH PLATELETS AND DIFFERENTIAL STAT 07/02/2024 7:03 PM CDT TYPE AND SCREEN, ADULT STAT 7:03 PM CDT CBC WITH PLATELETS & DIFFERENTIAL STAT 07/02/2024 7:03 PM CDT DIFFERENTIAL STAT 07/02/2024 7:03 PM CDT COMPREHENSIVE METABOLIC PANEL STAT 07/02/2024 7:03 PM CDT ABO/RH TYPE AND SCREEN STAT 7:03 PM CDT documented in this encounter Results * (ABNORMAL) Manual Differential (07/02/2024 7:03 PM CDT) % Neutrophils 57 % 07/02/2024 8:00 PM CDT [facility] % Lymphocytes 28 % 07/02/2024 8:00 PM CDT [facility] % Monocytes 10 % 07/02/2024 8:00 PM CDT [facility] % Eosinophils 1 % 07/02/2024 8:00 PM CDT [facility] % Basophils 4 % 07/02/2024 8:00 PM CDT [facility] NRBCs per 100 WBC 3(H) <=0 % 07/02/2024 8:00 PM CDT [facility] Absolute Neutrophils 5.7 1.6 - 8.3 10e3/uL 07/02/2024 8:00 PM CDT [facility] Absolute Lymphocytes 2.9 0.8 - 5.3 10e3/uL 07/02/2024 8:00 PM CDT [facility] Absolute Monocytes 1.0 0.0 - 1.3 10e3/uL 07/02/2024 8:00 PM CDT [facility] Absolute Eosinophils 0.1 0.0 - 0.7 10e3/uL 07/02/2024 8:00 PM CDT [facility] Absolute Basophils 0.3(H) 0.0 - 0.2 10e3/uL 07/02/2024 8:00 PM CDT [facility] Absolute NRBCs 0.3(H) <=0.0 10e3/uL 025 8:00 PM CDT [facility] RBC Morphology Confirmed RBC Indices 07/02/2024 8:00 PM CDT [facility] Platelet Assessment Automated Count Confirmed. Platelet morphology is normal. Automated Count Confirmed. Platelet morphology is normal. 07/02/2024 8:00 PM CDT [facility] Polychromasia Slight(A) None Seen 07/02/2024 8:00 PM CDT [facility] Sickle Cells Slight(A) None Seen 07/02/2024 8:00 PM CDT [facility] Target Cells Slight(A) None Seen 07/02/2024 8:00 PM CDT [facility] Blood BLOOD SPECIMEN / Unknown Venipuncture / Unknown 07/02/2024 7:03 PM CDT 07/02/2024 7:13 PM CDT us Vasiliy Lutz DO LAB - BLOOD ORDERABLES Fi nal Result [facility] [place] [facility] [address] [facility], [address] [place] [address], [facility] * Adult Type and Screen (07/02/2024 7:03 PM CDT) ABO/RH(D) A POS 07/02/2024 6:10 PM CDT [facility] Antibody Screen Negative Negative 07/02/2024 6:10 PM CDT [facility] SPECIMEN EXPIRATION DATE [id number] 07/02/2024 6:10 PM CDT [facility] Blood BLOOD SPECIMEN / Unknown Venipuncture / Unknown 07/02/2024 7:03 PM CDT 07/02/2024 7:13 PM CDT Vasiliy Lutz DO LAB - BLOOD BANK TEST ORD ER Final Result BLOOD BANK [address] [place] [phone] * (ABNORMAL) CBC with platelets and differential (07/02/2024 7:03 PM CDT) WBC Count 10.1 4.0 - 11.0 10e3/uL 07/02/2024 8:00 PM CDT [facility] RBC Count 2.33(L) 3.80 - 5.20 10e6/uL 07/02/2024 8:00 PM CDT [facility] Hemoglobin 7.5(L) 11.7 - 15.7 g/dL 07/02/2024 8:00 PM CDT [facility] Hematocrit 22.3(L) 35.0 - 47.0 % 07/02/2024 8:00 PM CDT [facility] MCV 96 78 - 100 fL 07/02/2024 8:00 PM CDT [facility] MCH 32.2 26.5 - 33.0 pg 07/02/2024 8:00 PM CDT [facility] MCHC 33.6 31.5 - 36.5 g/dL 07/02/2024 8:00 PM CDT [facility] RDW 20.0(H) 10.0 - 15.0 % 07/02/2024 8:00 PM CDT [facility] Platelet Count 449 150 - 450 10e3/uL 07/02/2024 8:00 PM CDT [facility] Blood BLOOD SPECIMEN / Unknown Venipuncture / Unknown 07/02/2024 7:03 PM CDT 07/02/2024 7:13 PM CDT Vasiliy Lutz DO LAB - BLOOD ORDERABLES Fi nal Result [facility] [address], [address] [place] [address], [facility] * (ABNORMAL) Comprehensive metabolic panel (07/02/2024 7:03 PM CDT) Sodium 137 135 - 145 mmol/L 07/02/2024 7:43 PM CDT [facility] Potassium 4.7 3.4 - 5.3 mmol/L 07/02/2024 7:43 PM CDT [facility] Carbon Dioxide (CO2) 20(L) 22 - 29 mmol/L 07/02/2024 7:43 PM CDT [facility] Anion Gap 9 7 - 15 mmol/L 07/02/2024 7:43 PM CDT [facility] Urea Nitrogen 10.0 6.0 - 20.0 mg/dL 07/02/2024 7:43 PM CDT [facility] Creatinine 0.66 0.51 - 0.95 mg/dL 07/02/2024 7:43 PM CDT [facility] GFR Estimate >90 >60 mL/min/1.7 3m2 07/02/2024 7:43 PM CDT [facility] Comment:eGFR calculated us2020 CKD-EPI equation. Calcium 9.4 8.8 - 10.4 mg/dL 07/02/2024 7:43 PM CDT [facility] Chloride 108(H) 98 - 107 mmol/L 07/02/2024 7:43 PM CDT [facility] Glucose 98 70 - 99 mg/dL 07/02/2024 7:43 PM CDT [facility] Alkaline Phosphatase 112 40 - 150 U/L 07/02/2024 7:43 PM CDT [facility] AST 63(H) 0 - 45 U/L 07/02/2024 7:43 PM CDT [facility] ALT 51(H) 0 - 50 U/L 07/02/2024 7:43 PM CDT [facility] Protein Total 7.6 6.4 - 8.3 g/dL 07/02/2024 7:43 PM CDT [facility] Albumin 4.2 3.5 - 5.2 g/dL 07/02/2024 7:43 PM CDT [facility] Bilirubin Total 1.5(H) <=1.2 mg/dL 07/02/2024 7:43 PM CDT [facility] Blood BLOOD SPECIMEN / Unknown Venipuncture / Unknown 07/02/2024 7:03 PM CDT 07/02/2024 7:13 PM CDT Vasiliy Lutz DO LAB - BLOOD ORDERABLES Fi nal Result [facility] [address], [address] [place] [address], [facility] documented in this encounter Visit Diagnoses Diagnosis 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 documented in this encounter Administered Medications Inactive Administered Medications - up to 3 most recent administrations Medication Order MAR Action Action Date Dose Rate Site diphenhydrAMINE (BENADRYL) capsule 25 mg 25 mg, Oral, ONCE, On 07/02/24 at 1810, For 1 dose $Given 07/02/2024 7:24 PM CDT 25 mg heparin lock flush 100 unit/mL injection 100 Units 100 Units, Intravenous, ONCE, On 07/02/24 at 2130, For 1 dose $Given 07/02/2024 9:33 PM CDT 100 Units hydromorphone (DILAUDID) injection 2 mg 2 mg, Intravenous, EVERY 1 HOUR PRN, moderate pain, Starting on 07/02/24 at 1808, For 3 doses $Given 07/02/2024 9:27 PM CDT 2 mg $Given 07/02/2024 8:29 PM CDT 2 mg $Given 07/02/2024 7:24 PM CDT 2 mg lactated ringers BOLUS 1,000 mL Intravenous, 1,000 mL, ONCE, at 500 mL/hr, Administer over 2 Hours, On 07/02/24 at 1810, For 1 dose $New Bag 07/02/2024 7:12 PM CDT 1,000 mLs 500 mL/hr ondansetron (ZOFRAN) injection 8 mg 8 mg, Intravenous, ONCE, Administer over 2-5 Minutes, On 07/02/24 at 1810, For 1 dose $Given 07/02/2024 7:23 PM CDT 8 mg documented in this encounter Active and Recently Administered Medications Due to Daylight Saving Time, this section may contain times in both [employer] and CDT. Scheduled Medication Order 06/30/2024 07/01/2024 07/02/2024 diphenhydrAMINE (BENADRYL) capsule 25 mg (COMPLETED) 25 mg, Oral, ONCE, On 07/02/24 at 1810, For 1 dose 1923 ($Given - Provi nas: Tristian Sánchez RN) heparin lock flush 100 unit/mL injection 100 Units (COMPLETED) 100 Units, Intravenous, ONCE, On 07/02/24 at 2130, For 1 dose 2132 ($Given - Provi nas: Ayo Suarez, SOFIA) lactated ringers BOLUS 1,000 mL (COMPLETED) Intravenous, 1,000 mL, ONCE, at 500 mL/hr, Administer over 2 Hours, On 07/02/24 at 1810, For 1 dose 1911 ($New Bag - Pro vider: Tristian Sánchez RN)2121 (Stopped - Provider: Ayo Suarez RN) ondansetron (ZOFRAN) injection 8 mg (COMPLETED) 8 mg, Intravenous, ONCE, Administer over 2-5 Minutes, On 07/02/24 at 1810, For 1 dose 1922 ($Given - Provi nas: Tristian Sánchez RN) PRN Medication Order 06/30/2024 07/01/2024 07/02/2024 hydromorphone (DILAUDID) injection 2 mg (COMPLETED) 2 mg, Intravenous, EVERY 1 HOUR PRN, moderate pain, Starting on 07/02/24 at 1808, For 3 doses 1923 ($Given - Provi nas: Tristian Sánchez RN)2028 ($Given - Provider: Ayo Suarez, SOFIA)2126 ($Given - Provider: Ayo Suarez, SOFIA) documented in this encounter Care Teams Proof Carrier Relationship Specialty Start Date End Date Veronica Joseph MD [address] [place] [id number] PCP - General Family Medicine 06/18/24 Mor Ramsey Medical Student 04/03/24 Case Samuel MD [address] [place] [address], [address] [place] [address] Assigned Pediatric Specialist Provider 05/18/24 Juhi Benson, RN Specialty Radiation Therapy Technologist Hematology & Oncology 05/29/24 documented as of this encounter
--- OUTSIDE RECORDS SUMMARY | 2024-07-03 20:34 | XMS_ITS | Encounter Summary ---
Author Organization [facility] Address [address] [place] [address] Care Team Providers Care Central Station Operator Name Role Phone R[employer]El[employer] Unavailable Unavailable Case Samuel MD Unavailable [phone] Juhi Benson RN Unavailable Unavailable Veronica Joseph MD Primary Care Provider [phone] Reason for Visit * Reason Comments Sickle Cell Pain Crisis Pt reports pain in back and b/l legs Encounter Details Date Type Department Care Team (Late st Contact Info) Description 06/23/2024 6:03 PM PATCHER WOOD WELDER - 06/23/2024 9:47 PM PATCHER WOOD WELDER Emergency [facility] Emergency Department [address] [place] [id number] Dayna Crane MD [address] [address] Sickle cell disease with crisis (H) Discharge [...] on file Legal Sex Female 8:25 AM PATCHER WOOD WELDER Gender Identity Not on file Sexual Orientation Not on file documented as of this encounter Last Filed Vital Signs Vital Sign Reading Time Taken Comments Blood Pressure 114/66 06/23/2024 7:49 PM PATCHER WOOD WELDER Pulse 100 06/23/2024 5:53 PM PATCHER WOOD WELDER Temperature 36.7 C (98 F) 06/23/2024 7:49 PM PATCHER WOOD WELDER Respiratory Rate 16 06/23/2024 7:49 PM PATCHER WOOD WELDER Oxygen Saturation 99% 06/23/2024 7:49 PM PATCHER WOOD WELDER Inhaled Oxygen Concentration - - Weight 52.2 kg (115 lb) 06/23/2024 5:53 PM PATCHER WOOD WELDER Height 154.9 cm (5' 1) 06/23/2024 5:53 PM PATCHER WOOD WELDER Body Mass Index 21.73 06/23/2024 5:53 PM PATCHER WOOD WELDER documented in this encounter Discharge Instructions * Discharge Instructions* Dayna Crane MD - 06/23/2024 9:00 PM PATCHER WOOD WELDER Please make an appointment to follow up with Your Primary Care Provider in 2-3 days. HER WOOD WELDER HER WOOD WELDER * Attachments The following attachments cannot be [...] 05/01/2024 naloxone (NARCAN) 4 MG/0.1ML nasal spray [place] 1 spray (4 mg) into one nostril [...] Booker - 06/23/2024 6:12 PM CST [facility] Expected date: Expected time: Means of arrival: Comments: X3 monitor: G42 HER WOOD WELDER * Melanie Menon, RN - 06/23/2024 5:54 PM CST Pt presents with sickle cell crisis with reported pain to the back and b/l legs. Triage Assessment (Adult) Row Name 06/23/24 1754 Triage Assessment Airway WDL WDL Respiratory WDL Respiratory WDL WDL Skin Circulation/Temperature WDL Skin Circulation/Temperature WDL WDL Cardiac WDL Cardiac WDL WDL Peripheral/Neurovascular WDL Peripheral Neurovascular WDL WDL Cognitive/Neuro/Behavioral WDL Cognitive/Neuro/Behavioral WDL WDL HER WOOD WELDER documented in this encounter Plan of Treatment Upcoming Encounters Date Type Department Care Team (Late st Contact Info) Description 07/04/2024 9:00 AM CDT Lab [facility] [address] [address] Case Samuel MD [address] [place] [address], [address] [place], [place] [address] 07/06/2024 8:00 AM CDT Appointment [facility] [address] [address] Case Samuel MD [address] [place], [place] [address], [address] [place] [address] 07/10/2024 11:30 AM CDT Oncology Visit [facility] [address] [address] Case Samuel MD [address] [facility] [address], [address] [place] [address] documented as of this encounter Goals Goal Patient Goal Type Associated Problems Recent Progress Patient-Stated? Author Pain Management General On track( 025 12:40 PM PATCHER WOOD WELDER) Yes Juhi Benson, RN Note: Goal [...] PLATELETS AND DIFFERENTIAL STAT 06/23/2024 6:22 PM PATCHER WOOD WELDER CBC WITH PLATELETS & DIFFERENTIAL STAT 06/23/2024 6:22 PM PATCHER WOOD WELDER HCG QUALITATIVE STAT 06/23/2024 6:22 PM PATCHER WOOD WELDER DIFFERENTIAL STAT 06/23/2024 6:22 PM PATCHER WOOD WELDER COMPREHENSIVE METABOLIC PANEL STAT 06/23/2024 6:22 PM PATCHER WOOD WELDER documented in this encounter Results * (ABNORMAL) Manual Differential (06/23/2024 6:22 PM PATCHER WOOD WELDER) % Neutrophils 73 % 06/23/2024 7:05 PM PATCHER WOOD WELDER [facility] % Lymphocytes 24 % 06/23/2024 7:05 PM PATCHER WOOD WELDER [facility] % Monocytes 2 % 06/23/2024 7:05 PM PATCHER WOOD WELDER [facility] % Eosinophils 0 % 06/23/2024 7:05 PM PATCHER WOOD WELDER [facility] % Basophils 2 % 06/23/2024 7:05 PM PATCHER WOOD WELDER [facility] NRBCs per 100 WBC 12(H) <=0 % 06/23/2024 7:05 PM PATCHER WOOD WELDER [facility] Absolute Neutrophils 7.2 1.6 - 8.3 10e3/uL 06/23/2024 7:05 PM PATCHER WOOD WELDER [facility] Absolute Lymphocytes 2.3 0.8 - 5.3 10e3/uL 06/23/2024 7:05 PM PATCHER WOOD WELDER [facility] Absolute Monocytes 0.2 0.0 - 1.3 10e3/uL 06/23/2024 7:05 PM PATCHER WOOD WELDER [facility] Absolute Eosinophils 0.0 0.0 - 0.7 10e3/uL 06/23/2024 7:05 PM PATCHER WOOD WELDER [facility] Absolute Basophils 0.2 0.0 - 0.2 10e3/uL 06/23/2024 7:05 PM PATCHER WOOD WELDER [facility] Absolute NRBCs 1.2(H) <=0.0 10e3/uL 025 7:05 PM PATCHER WOOD WELDER [facility] RBC Morphology Confirmed RBC Indices 06/23/2024 7:05 PM PATCHER WOOD WELDER [facility] Platelet Assessment Automated Count Confirmed. Platelet morphology is normal. Automated Count Confirmed. Platelet morphology is normal. 06/23/2024 7:05 PM PATCHER WOOD WELDER [facility] Polychromasia Slight(A) None Seen 06/23/2024 7:05 PM PATCHER WOOD WELDER [facility] Sickle Cells Slight(A) None Seen 06/23/2024 7:05 PM PATCHER WOOD WELDER [facility] Target Cells Slight(A) None Seen 06/23/2024 7:05 PM PATCHER WOOD WELDER [facility] Blood BLOOD SPECIMEN / Unknown Venipuncture / Unknown 06/23/2024 6:22 PM PATCHER WOOD WELDER 06/23/2024 6:34 PM PATCHER WOOD WELDER us Dayna Crane MD LAB - BLOOD ORDERABLES Final Re sult [facility] [place] [facility] [address] [facility], [address] [place] [id number] * (ABNORMAL) CBC with platelets and differential (06/23/2024 6:22 PM PATCHER WOOD WELDER) WBC Count 9.8 4.0 - 11.0 10e3/uL 06/23/2024 6:45 PM PATCHER WOOD WELDER [facility] RBC Count 2.49(L) 3.80 - 5.20 10e6/uL 06/23/2024 6:45 PM PATCHER WOOD WELDER [facility] Hemoglobin 8.0(L) 11.7 - 15.7 g/dL 06/23/2024 6:45 PM PATCHER WOOD WELDER [facility] Hematocrit 24.2(L) 35.0 - 47.0 % 06/23/2024 6:45 PM PATCHER WOOD WELDER [facility] MCV 97 78 - 100 fL 06/23/2024 6:45 PM PATCHER WOOD WELDER [facility] MCH 32.1 26.5 - 33.0 pg 06/23/2024 6:45 PM PATCHER WOOD WELDER [facility] MCHC 33.1 31.5 - 36.5 g/dL 06/23/2024 6:45 PM PATCHER WOOD WELDER [facility] RDW 18.8(H) 10.0 - 15.0 % 06/23/2024 6:45 PM PATCHER WOOD WELDER [facility] Platelet Count 482(H) 150 - 450 10e3/uL 06/23/2024 6:45 PM PATCHER WOOD WELDER [facility] Blood BLOOD SPECIMEN / Unknown Venipuncture / Unknown 06/23/2024 6:22 PM PATCHER WOOD WELDER 06/23/2024 6:34 PM PATCHER WOOD WELDER us Dayna Crane MD LAB - BLOOD ORDERABLES Final Re sult [facility] [place] [facility] [address] [facility], [address] [place] [phone] * HCG qualitative Blood (06/23/2024 6:22 PM PATCHER WOOD WELDER) hCG Serum Qualitative Negative Negative JARET 06/23/2024 6:49 PM PATCHER WOOD WELDER [facility] Comment:This test is for scr eening purposes. Results should be interpreted along with the clinical picture. Confirmation testing is available if warranted by ordering [id number], HCG Quantitative . Blood BLOOD SPECIMEN / Unknown Venipuncture / Unknown 06/23/2024 6:22 PM PATCHER WOOD WELDER 06/23/2024 6:38 PM PATCHER WOOD WELDER us Dayna Crane MD LAB - BLOOD ORDERABLES Final Re sult [facility] [place] [facility] [address] [facility] [address], [address] [place] [address], [facility] * (ABNORMAL) Comprehensive metabolic panel (06/23/2024 6:22 PM PATCHER WOOD WELDER) Sodium 140 135 - 145 mmol/L 06/23/2024 7:13 PM PATCHER WOOD WELDER [facility] Potassium 4.3 3.4 - 5.3 mmol/L 06/23/2024 7:13 PM PATCHER WOOD WELDER [facility] Carbon Dioxide (CO2) 24 22 - 29 mmol/L 06/23/2024 7:13 PM PATCHER WOOD WELDER [facility] Anion Gap 7 7 - 15 mmol/L 06/23/2024 7:13 PM PATCHER WOOD WELDER [facility] Urea Nitrogen 6.8 6.0 - 20.0 mg/dL 06/23/2024 7:13 PM PATCHER WOOD WELDER [facility] Creatinine 0.61 0.51 - 0.95 mg/dL 06/23/2024 7:13 PM PATCHER WOOD WELDER [facility] GFR Estimate >90 >60 mL/min/1.7 3m2 06/23/2024 7:13 PM PATCHER WOOD WELDER [facility] Comment:eGFR calculated us2020 CKD-EPI equation. Calcium 8.8 8.8 - 10.4 mg/dL 06/23/2024 7:13 PM PATCHER WOOD WELDER [facility] Chloride 109(H) 98 - 107 mmol/L 06/23/2024 7:13 PM PATCHER WOOD WELDER [facility] Glucose 102(H) 70 - 99 mg/dL 06/23/2024 7:13 PM PATCHER WOOD WELDER [facility] Alkaline Phosphatase 125 40 - 150 U/L 06/23/2024 7:13 PM PATCHER WOOD WELDER [facility] AST 84(H) 0 - 45 U/L 06/23/2024 7:13 PM PATCHER WOOD WELDER [facility] ALT 69(H) 0 - 50 U/L 06/23/2024 7:13 PM PATCHER WOOD WELDER [facility] Protein Total 7.8 6.4 - 8.3 g/dL 06/23/2024 7:13 PM PATCHER WOOD WELDER [facility] Albumin 4.2 3.5 - 5.2 g/dL 06/23/2024 7:13 PM PATCHER WOOD WELDER [facility] Bilirubin Total 1.5(H) <=1.2 mg/dL 06/23/2024 7:13 PM PATCHER WOOD WELDER [facility] Blood BLOOD SPECIMEN / Unknown Venipuncture / Unknown 06/23/2024 6:22 PM PATCHER WOOD WELDER 06/23/2024 6:34 PM PATCHER WOOD WELDER us Dayna Crane MD LAB - BLOOD ORDERABLES Final Re sult [facility] [place] [facility] [address] [facility], [address] [place] [id number] documented in this encounter Visit Diagnoses Diagnosis Sickle cell disease with crisis (H) Hb-SS disease with crisis documented in this encounter Administered Medications Inactive Administered Medications - up to 3 most recent administrations Medication Order MAR Action Action Date Dose Rate Site diphenhydrAMINE (BENADRYL) capsule 25 mg 25 mg, Oral, ONCE, On Wed06/23/24 at 1920, For 1 dose $Given 06/23/2024 7:43 PM PATCHER WOOD WELDER 25 mg heparin lock flush 100 unit/mL injection 100 Units 100 Units, Intravenous, ONCE, On Wed06/23/24 at 2100, For 1 dose $Given 06/23/2024 9:25 PM PATCHER WOOD WELDER 100 Units hydromorphone (DILAUDID) injection 2 mg 2 mg, Intravenous, EVERY 1 HOUR PRN, severe pain, Starting on Wed06/23/24 at 1806, X 3 max $Given 06/23/2024 8:46 PM PATCHER WOOD WELDER 2 mg $Given 06/23/2024 7:43 PM PATCHER WOOD WELDER 2 mg $Given 06/23/2024 6:28 PM PATCHER WOOD WELDER 2 mg sodium chloride 0.9% BOLUS 1,000 mL Intravenous, 1,000 mL, ONCE, at 1,000 mL/hr, Administer over 1 Hours, On Wed06/23/24 at 1810, For 1 dose $New Bag 06/23/2024 6:28 PM PATCHER WOOD WELDER 1,000 mLs 1000 mL/hr documented in this encounter Active and Recently Administered Medications Times are shown in PATCHER WOOD WELDER. Scheduled Medication Order 06/21/2024 06/22/2024 06/23/2024 diphenhydrAMINE [...] On Wed06/23/24 at 1810, For 1 dose 1828 ($New Bag - Pro vider: Tristian France [...] RN) documented in this encounter Care Teams Central Station Operator Relationship Specialty Start Date End Date Veronica Joseph MD [address] [place] [address] PCP - General Family Medicine 06/18/24 Mor Ramsey Medical Student 04/03/24 Case Samuel MD [address] [place] [address], [address] [place] [address] Assigned Pediatric Specialist Provider 05/18/24 Juhi Benson, SOFIA Specialty Musical Instrument Maker Or Repairer Hematology & Oncology 05/29/24 documented as of this encounter
--- OUTSIDE RECORDS SUMMARY | 2024-07-03 20:35 | XMS_ITS | Encounter Summary ---
Author Organization [place] Address [address] [place] [address] Care Team Providers Care Facilities Operator Name Role Phone Roxy Mor Unavailable Unavailable Case Samuel MD Unavailable [phone] Juhi Benson RN Unavailable Unavailable Veronica Joseph MD Primary Care Provider [phone] Reason for Visit * Reason Comments Sickle Cell Pain Crisis Encounter Details Date Type Department Care Team (Late st Contact Info) Description 06/22/2024 5:23 PM LOADER MACHINE - 06/22/2024 10:02 PM LOADER MACHINE Emergency [facility] Emergency Department [address] [place] [phone] Lynne Varner MD [address] [place] [phone] Sickle cell anemia with crisis (H) Discharge [...] on file Legal Sex Female 8:25 AM LOADER MACHINE Gender Identity Not on file Sexual Orientation Not on file documented as of this encounter Last Filed Vital Signs Vital Sign Reading Time Taken Comments Blood Pressure 104/73 06/22/2024 5:03 PM LOADER MACHINE Pulse 100 06/22/2024 5:03 PM LOADER MACHINE Temperature 36.8 C (98.2 F) 06/22/2024 5:03 PM LOADER MACHINE Respiratory Rate 16 06/22/2024 5:03 PM LOADER MACHINE Oxygen Saturation 99% 06/22/2024 5:03 PM LOADER MACHINE Inhaled Oxygen Concentration - - Weight 52.2 kg (115 lb) 06/22/2024 5:03 PM LOADER MACHINE Height 154.9 cm (5' 1) 06/22/2024 5:03 PM LOADER MACHINE Body Mass Index 21.73 06/22/2024 5:03 PM LOADER MACHINE documented in this encounter Discharge Instructions * Discharge Instructions* Lynne Varner MD - 06/22/2024 5:43 PM LOADER MACHINE TODAY'S VISIT: You were seen today for [...] new or worsening symptoms or any concerns. ER MACHINE * Attachments The following attachments cannot be sent through Care Everywhere. * Sickle Cell Crisis ([place]) documented in this encounter Medications [...] 05/01/2024 naloxone (NARCAN) 4 MG/0.1ML nasal spray Chappell 1 spray (4 mg) into one nostril [...] Surgical History, and Social History in the [employer]. Past Medical History: Diagnosis Date Acute [...] 11 naloxone (NARCAN) 4 MG/0.1ML nasal spray Chappell 1 spray (4 mg) into one nostril [...] Concern Not on file Social History Narrative [id number] mom. Recently moved to [place] from [place], [place]. She is 1 of 9 [...] Integrated (03/28/2024) Received from [facility] Social Connections Do you often feel lonely [...] Status --------- ------ CBC with platelets and d...[[id number]] Abnormal Final result RBC and Platelet Morphology[[id number]] Please view results for these tests on [...] with crisis (H) LYNNE VARNER MD 06/22/2024 [facility] EMERGENCY DEPARTMENT Lynne Varner MD 06/22/24 [id number] ER MACHINE * Milagros Lofton RN - 06/22/2024 5:06 PM CST Pt is here for sickle cell crisis. Pain in her back and both legs. PT took her home dilaudid oral at 2 pm. Pt coming in for her pain. Denies any symptoms. Triage Assessment (Adult) Row Name 06/22/24 9366 Triage Assessment Airway WDL WDL Respiratory WDL Respiratory WDL WDL Skin Circulation/Temperature WDL Skin Circulation/Temperature WDL WDL Cardiac WDL Cardiac WDL WDL Cardiac Rhythm Other (Comment) Peripheral/Neurovascular WDL Peripheral Neurovascular WDL WDL Cognitive/Neuro/Behavioral WDL Cognitive/Neuro/Behavioral WDL WDL ER MACHINE documented in this encounter Plan of Treatment Upcoming Encounters Date Type Department Care Team (Late st Contact Info) Description 07/04/2024 9:00 AM CDT Lab [facility] Cancer [address] [phone] Case Samuel MD [address] [place] [address], [address] [place], [place] [phone] 07/06/2024 8:00 AM CDT Appointment [facility] [address] [phone] Case Samuel MD [address] [place] [address], [address] [place] [address] 07/10/2024 11:30 AM CDT Oncology Visit [facility] Cancer [address] [phone] Case Samuel MD [address] [place], [place] [address], [address] [place], [place] [phone] documented as of this encounter Goals Goal Patient Goal Type Associated Problems Recent Progress Patient-Stated? Author Pain Management General On track( 025 12:40 PM LOADER MACHINE) Yes Juhi Benson, SOFIA Note: Goal [...] PLATELETS AND DIFFERENTIAL STAT 06/22/2024 7:10 PM LOADER MACHINE CBC WITH PLATELETS & DIFFERENTIAL STAT 06/22/2024 7:10 PM LOADER MACHINE RETICULOCYTE COUNT STAT 06/22/2024 7: 10 PM LOADER MACHINE HCG QUALITATIVE STAT 06/22/2024 7:10 PM LOADER MACHINE COMPREHENSIVE METABOLIC PANEL STAT 06/22/2024 7:10 PM LOADER MACHINE documented in this encounter Results * (ABNORMAL) CBC with platelets and differential (06/22/2024 7:10 PM LOADER MACHINE) WBC Count 13.7(H) 4.0 - 11.0 10e3/uL 06/22/2024 7:47 PM LOADER MACHINE [facility] RBC Count 2.48(L) 3.80 - 5.20 10e6/uL 06/22/2024 7:47 PM LOADER MACHINE [facility] Hemoglobin 8.2(L) 11.7 - 15.7 g/dL 06/22/2024 7:47 PM LOADER MACHINE [facility] Hematocrit 23.3(L) 35.0 - 47.0 % 06/22/2024 7:47 PM LOADER MACHINE [facility] MCV 94 78 - 100 fL 06/22/2024 7:47 PM LOADER MACHINE [facility] MCH 33.1(H) 26.5 - 33.0 pg 06/22/2024 7:47 PM LOADER MACHINE [facility] MCHC 35.2 31.5 - 36.5 g/dL 06/22/2024 7:47 PM LOADER MACHINE [facility] RDW 18.6(H) 10.0 - 15.0 % 06/22/2024 7:47 PM LOADER MACHINE [facility] Platelet Count 470(H) 150 - 450 10e3/uL 06/22/2024 7:47 PM LOADER MACHINE [facility] % Neutrophils 78 % 06/22/2024 7:47 PM LOADER MACHINE [facility] % Lymphocytes 16 % 06/22/2024 7:47 PM LOADER MACHINE [facility] % Monocytes 4 % 06/22/2024 7:47 PM LOADER MACHINE [facility] % Eosinophils 1 % 06/22/2024 7:47 PM LOADER MACHINE [facility] % Basophils 1 % 06/22/2024 7:47 PM LOADER MACHINE [facility] % Immature Granulocytes 1 % 06/22/2024 7:47 PM LOADER MACHINE [facility] NRBCs per 100 WBC 3(H) <1 /100 025 7:47 PM LOADER MACHINE [facility] Absolute Neutrophils 10.6(H) 1.6 - 8.3 10e3/uL 06/22/2024 7:47 PM LOADER MACHINE [facility] Absolute Lymphocytes 2.3 0.8 - 5.3 10e3/uL 06/22/2024 7:47 PM LOADER MACHINE [facility] Absolute Monocytes 0.5 0.0 - 1.3 10e3/uL 06/22/2024 7:47 PM LOADER MACHINE [facility] Absolute Eosinophils 0.1 0.0 - 0.7 10e3/uL 06/22/2024 7:47 PM LOADER MACHINE [facility] Absolute Basophils 0.1 0.0 - 0.2 10e3/uL 06/22/2024 7:47 PM LOADER MACHINE [facility] Absolute Immature Granulocytes 0.1 <=0.4 10e3/uL 06/22/2024 7:47 PM LOADER MACHINE [facility] Absolute NRBCs 0.4 10e3/uL 06/22/2024 7:47 PM LOADER MACHINE [facility] Blood VENOUS LINE / Unknown Venipuncture / Unknown 06/22/2024 7:10 PM LOADER MACHINE 06/22/2024 7:16 PM LOADER MACHINE us Lynne Varner MD LAB - BLOOD ORDERABLES Fin al Result [facility] [place] Core Lab [address] [facility], [address] [place] [phone], [facility] * (ABNORMAL) Reticulocyte count (06/22/2024 7:10 PM LOADER MACHINE) Pathologist [facility] % Reticulocyte 5.3(H) 0.5 - 2.0 % 06/22/2024 7:23 PM LOADER MACHINE [facility] Absolute Reticulocyte 0.130(H) 0.025 - 0.095 10e6/uL 06/22/2024 7:23 PM LOADER MACHINE [facility] Blood VENOUS LINE / Unknown Venipuncture / Unknown 06/22/2024 7:10 PM LOADER MACHINE 06/22/2024 7:16 PM LOADER MACHINE Lynne Varner MD LAB - BLOOD ORDERABLES Fin al Result Performing Organization Address City/[facility]/ZIP Co de Phone Number [facility] [place] Core Lab [address] [facility], [address] * HCG qualitative Blood (06/22/2024 7:10 PM LOADER MACHINE) Pathologist [facility] hCG Serum Qualitative Negative Negative JARET 06/22/2024 7:45 PM LOADER MACHINE [facility] Comment:This test is for scr eening purposes. Results should be interpreted along with the clinical picture. Confirmation testing is available if warranted by ordering [id number], HCG Quantitative . Blood VENOUS LINE / Unknown Venipuncture / Unknown 06/22/2024 7:10 PM LOADER MACHINE 06/22/2024 7:26 PM LOADER MACHINE Lynne Varner MD LAB - BLOOD ORDERABLES Fin al Result Performing Organization Address [facility] Co de Phone Number [facility] [place] Core Lab [address] [facility], [address] * (ABNORMAL) Comprehensive metabolic panel (06/22/2024 7:10 PM LOADER MACHINE) [facility] Sodium 137 135 - 145 mmol/L 06/22/2024 8:00 PM LOADER MACHINE [facility] Potassium 4.5 3.4 - 5.3 mmol/L 06/22/2024 8:00 PM LOADER MACHINE [facility] Carbon Dioxide (CO2) 21(L) 22 - 29 mmol/L 06/22/2024 8:00 PM LOADER MACHINE [facility] Anion Gap 8 7 - 15 mmol/L 06/22/2024 8:00 PM LOADER MACHINE [facility] Urea Nitrogen 12.1 6.0 - 20.0 mg/dL 06/22/2024 8:00 PM LOADER MACHINE [facility] Creatinine 0.71 0.51 - 0.95 mg/dL 06/22/2024 8:00 PM LOADER MACHINE [facility] GFR Estimate >90 >60 mL/min/1.7 3m2 06/22/2024 8:00 PM LOADER MACHINE [facility] Comment:eGFR calculated us2020 CKD-EPI equation. Calcium 9.5 8.8 - 10.4 mg/dL 06/22/2024 8:00 PM LOADER MACHINE [facility] Chloride 108(H) 98 - 107 mmol/L 06/22/2024 8:00 PM LOADER MACHINE [facility] Glucose 100(H) 70 - 99 mg/dL 06/22/2024 8:00 PM LOADER MACHINE [facility] Alkaline Phosphatase 119 40 - 150 U/L 06/22/2024 8:00 PM LOADER MACHINE [facility] AST 62(H) 0 - 45 U/L 06/22/2024 8:00 PM LOADER MACHINE [facility] ALT 54(H) 0 - 50 U/L 06/22/2024 8:00 PM LOADER MACHINE [facility] Protein Total 7.8 6.4 - 8.3 g/dL 06/22/2024 8:00 PM LOADER MACHINE [facility] Albumin 4.1 3.5 - 5.2 g/dL 06/22/2024 8:00 PM LOADER MACHINE [facility] Bilirubin Total 1.4(H) <=1.2 mg/dL 06/22/2024 8:00 PM LOADER MACHINE [facility] Blood VENOUS LINE / Unknown Venipuncture / Unknown 06/22/2024 7:10 PM LOADER MACHINE 06/22/2024 7:16 PM LOADER MACHINE us Lynne Varner MD LAB - BLOOD ORDERABLES Fin al Result [facility] [place] Core Lab [address] [facility], [address] [place] [phone] documented in this encounter Visit [...] For 1 dose $Given 06/22/2024 7:19 PM LOADER MACHINE 25 mg heparin lock flush 100 unit/mL injection 100 Units 100 Units, Intravenous, ONCE, On Citlali 06/22/24 at 2150, For 1 dose $Given 06/22/2024 9:53 PM LOADER MACHINE 100 Units hydromorphone (DILAUDID) injection 2 mg 2 mg, Intravenous, EVERY 1 HOUR PRN, severe pain, Starting on Citlali 06/22/24 at 1735, For 3 doses $Given 06/22/2024 9:33 PM LOADER MACHINE 2 mg $Given 06/22/2024 8:34 PM LOADER MACHINE 2 mg $Given 06/22/2024 7:20 PM LOADER MACHINE 2 mg lactated ringers BOLUS 1,000 mL Intravenous, 1,000 mL, ONCE, at 1,000 mL/hr, Administer over 1 Hours, On Citlali 06/22/24 at 1740, For 1 dose $New Bag 06/22/2024 7:19 PM LOADER MACHINE 1,000 mLs 1000 mL/hr ondansetron (ZOFRAN) injection 4 mg 4 mg, Intravenous, EVERY 30 MIN PRN, nausea, vomiting, Administer over 2-5 Minutes, Starting on Citlali 06/22/24 at 1735, For 3 doses, May repeat in 30 minutes as needed, up to 3 doses. $Given 06/22/2024 7:19 PM LOADER MACHINE 4 mg documented in this encounter Active and Recently Administered Medications Times are shown in LOADER MACHINE. Scheduled Medication Order 06/20/2024 06/21/2024 06/22/2024 diphenhydrAMINE (BENADRYL) capsule 25 mg (COMPLETED) 25 mg, Oral, ONCE, On Citlali 06/22/24 at 1740, For 1 dose 1918 ($Given - Provi nas: Gunner Galindo, SOFIA) heparin lock flush 100 unit/mL injection [...] Gunner Galindo RN)2123 (Stopped - Provider: Kathy Mann, RN) PRN Medication Order 06/20/2024 06/21/2024 06/22/2024 hydromorphone (DILAUDID) injection 2 mg (COMPLETED) 2 mg, Intravenous, EVERY 1 HOUR PRN, severe pain, Starting on Citlali 06/22/24 at 1735, For 3 doses 1919 ($Given - Provi nas: Gunner Galindo RN)2033 ($Given - Provider: Kathy Mann, RN)2132 ($Given - Provider: Kathy Mann, SOFIA) ondansetron (ZOFRAN) injection 4 mg 4 mg, Intravenous, EVERY 30 MIN PRN, nausea, vomiting, Administer over 2-5 Minutes, Starting on Citlali 06/22/24 at 1735, For 3 doses, May repeat in 30 minutes as needed, up to 3 doses. 1918 ($Given - Provi nas: Gunner Galindo RN) documented in this encounter Care Teams Facilities Operator Relationship Specialty Start Date End Date Veronica Joseph MD [address] [place] [address] PCP - General Family Medicine 06/18/24 Mor Ramsey Medical Student 04/03/24 Case Samuel MD [address] [place] [address], [address] [place] [address] Assigned Pediatric Specialist Provider 05/18/24 Juhi Benson, SOFIA Specialty Project Coordinator Hematology & Oncology 05/29/24 documented as of this encounter
--- OUTSIDE RECORDS SUMMARY | 2024-07-03 20:35 | XMS_ITS | Encounter Summary ---
Author Organization [facility] Address [address] [place] [address] Care Team Providers Care Cloud Engagement Partner Name Role Phone No Ref-Primary, Physician Primary Care Provider Mor Ramsey Unavailable Unavailable Case Samuel MD Unavailable [phone] Juhi Benson RN Unavailable Unavailable Reason for Visit * Reason Onset Date Comments Refill Request 06/15/2024 Encounter Details Date Type Department Care Team (Late st Contact Info) Description 06/15/[address] [place] [address] Case Samuel MD [address] [place] [address], [address] [place], [place] [phone] Refill Request Social History Tobacco Use Types [...] on file Legal Sex 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 Samuel and SOFIA ReynagaCC. LE FORMS DEVELOPER documented in this encounter Plan of Treatment Upcoming Encounters Date Type Department Care Team (Late st Contact Info) Description 07/04/2024 9:00 AM CDT Lab [facility] Cancer [address] [phone] Case Samuel MD [address] [place] [address], [address] [place], [place] [phone] 07/06/2024 8:00 AM CDT Appointment [facility] Advanced Treatment [address] [phone] Case Samuel MD [address] [place] [address], [address] [place], [place] [address] 07/10/2024 11:30 AM CDT Oncology Visit [facility] [address] [phone] Case Samuel MD [address] [place], [place] [address], [address] [phone] documented as of this encounter Goals Goal Patient Goal Type Associated Problems Recent Progress Patient-Stated? 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
--- OUTSIDE RECORDS SUMMARY | 2024-07-03 20:35 | XMS_ITS | Encounter Summary ---
Author Organization [facility] Address [address] [place] [address]. [place] [address] Care Team Providers Care Insurance Analyst Name Role Phone No Ref-Primary, Physician Primary Care Provider Mor Ramsey Unavailable Unavailable Case Samuel MD Unavailable [phone] Juhi Benson RN Unavailable Unavailable Veronica Joseph MD Primary Care Provider [phone] Reason for Visit * Reason Comments Shortness of Breath Chest Pain Fever * Auth/Cert Specialty Diagnoses / Procedures Referred By Contac t Referred To Contact EMERGENCY MEDICINE Diagnoses Sickle cell pain crisis (H) [facility] Emergency Department [address] [place] [address] Phone: tel: Referral ID Status Reason Start Date Expiration Date Visits Re quested Visits Authorized [id number] 1 1 Encounter Details Date Type Department Care Team (Late st Contact Info) Description 06/16/2024 4:46 PM LAWYER - 06/20/2024 11:00 AM LAWYER Hospital Encounter [facility] 7C Med Surg [address] [place] [phone] Abimael Schofield MD [address] [place] [address] [id number] Esdras Markham MD [address] [place] [address] German Hall MD [address] [place] [address] [address] [place] [address] Sickle cell pain crisis (H) [...] on file Legal Sex Female 8:25 AM LAWYER Gender Identity Not on file Sexual Orientation Not on file documented as of this encounter Last Filed Vital Signs Vital Sign Reading Time Taken Comments Blood Pressure 106/62 06/20/2024 6:00 AM LAWYER Pulse 78 06/19/2024 2:25 PM LAWYER Temperature 36.7 C (98 F) 06/20/2024 6:00 AM LAWYER Respiratory Rate 18 06/20/2024 6:00 AM LAWYER Oxygen Saturation 99% 06/20/2024 6:00 AM LAWYER Inhaled Oxygen Concentration - - Weight - - Height - - Body Mass Index - - documented in this encounter Discharge Summaries * Rl Elias MD - 06/20/2024 8:39 AM CST [facility] Discharge Summary - Medicine & [...] her pain can be managed with her ORAL THERAPIST dilaudid 4mg q6h PRN. Hematology team is aware of discharge today and will arrange follow up. - continue ORAL THERAPIST dilaudid 4 mg Q6H PRN & further supportive cares as needed - follow up with Hematology as scheduled by their team - Continue ORAL THERAPIST hydroxyurea 1000mg BID - Continue ORAL THERAPIST folic acid 1mg daily - Continue topical diclofenac, lidocaine, icy hot PRN #ANGIE, resolved Likely prerenal with decreased PO intake. Cr 0.92 on admission, baseline ~0.61- 0.7. Improved with maintenance fluids. Encouraged adequate water intake at home. #Insomnia - melatonin 3 mg PRN #Anxiety - Continue ORAL THERAPIST fluoxetine Consultations This Hospital Stay HEMATOLOGY ADULT IP CONSULT CARE MANAGEMENT / SOCIAL WORK IP CONSULT Code Status Full Code Nivia Carvajal, MS3 Ricardo 1 Hospitalist Service [facility] 7C MED SURG [address] [facility] [phone] Physical Exam Vital Signs: Temp: 98 ??F [...] discharge: activity as tolerated Follow Up ([facility]) Follow up with primary care provider, Veronica Joseph, within 7 days for hospital follow- up. Thefollowing labs/tests are recommended: CBC. Appointments on [place] and/or [facility] (with [facility] or [facility] provider or service). Call [phone] if you haven't heard regarding these appointments [...] inadequate. naloxone (NARCAN) 4 MG/0.1ML nasal spray Hayden 1 spray (4 mg) into one nostril [...] Aydee Coughlin MD at 06/20/2024 11:52 AM LAWYER ER ER Associated attestation - Aydee Coughlin MD - 06/20/2024 11:52 AM LAWYER Physician Attestation I saw and evaluated this [...] 05/01/2024 naloxone (NARCAN) 4 MG/0.1ML nasal spray Hayden 1 spray (4 mg) into one nostril [...] on the papers. Home supply :N/A. ER * Araceli Ramires MD - 06/20/2024 8:42 [...] Overall, I spent 35 minutes today (DOS) nypj-ea-urll and/or coordinating care as documented above and specifically listed as below: --Reviewing documentation related to patient's history and this current admission available in [employer] --Review and clinical interpretation of pertinent laboratory test results from this admission --Discussion with the patient --Discussion with patient's primary team --Documentation in the electronic health record ER * Linda Lomax MD - 06/19/2024 7:43 [...] Service (when I saw the patient): 06/19/24 [facility] Progress Note - Medicine Service, [...] senna PRN for supportive measures - Continue ORAL THERAPIST hydroxyurea 1000mg BID - Continue ORAL THERAPIST folic acid 1mg daily - Monitoring CBC [...] melatonin 3 mg PRN #Anxiety - Continue ORAL THERAPIST fluoxetine - Benadryl PRN per Pain Plan [...] Carvajal, MS3 Medical Student Medicine Service, [facility] TEAM [address] [place] [address] Securely message with [employer] (more info) Text page via [facility] [...] visit (from the past 24 hours). ER * Tejal Curry RN - 06/18/2024 6:54 PM CST Shift: [phone] VS: Temp: 98.3 ??F (36.8 ??C) Temp [...] appropriately Plan: Continue POC; manage pain ER * Linda Lomax MD - 06/18/2024 10:18 AM CST [facility] Progress Note - Medicine Service, [...] benadryl, senna PRN for supportive measures -Continue ORAL THERAPIST hydroxyurea 1000mg BID -Continue ORAL THERAPIST folic acid 1mg daily - monitoring CBC w/diff, LDH, reticulocyte count, and LDH daily - type & screened, consented - continue topical diclofenac, lidocaine, icy hot PRN - blood cultures, urine culture >> NGTD #ANGIE, resolved Likely prerenal with decreased PO intake. - mIVF with LR - CMP in AM #Insomnia - Continue ORAL THERAPIST fluoxetine - melatonin 3 mg PRN Diet: [...] Hall . Linda Lomax MD Medicine Service, [address] Securely message with [employer] (more info) Text page via [facility] [...] German Hall MD at 06/18/2024 3:16 PM LAWYER ER ER Associated attestation - German Hall MD - 06/18/2024 3:16 PM LAWYER Attestation: This patient has been seen and evaluated by me, German Hlal MD. Discussed with the house staff team [...] Overall, I spent 35 minutes today (DOS) [id number] and/or coordinating care as documented above and specifically listed as below: --Reviewing documentation related to patient's history and this current admission available in [employer] --Review and clinical interpretation of pertinent laboratory test results from this admission --Discussion with the patient --Discussion with patient's primary team --Documentation in the electronic health record ER * Rl Elias MD - 06/17/2024 11:31 AM CST [facility] Progress Note - [facility] Date of Admission: [...] benadryl, senna PRN for supportive measures -Continue ORAL THERAPIST hydroxyurea 1000mg BID -Continue ORAL THERAPIST folic acid 1mg daily - monitoring CBC w/diff, LDH, reticulocyte count, and LDH daily - type & screened, consented - continue topical diclofenac, lidocaine, icy hot PRN - blood cultures, urine culture to evaluate any further source of infection #ANGIE Likely prerenal with decreased PO intake. - mIVF with LR - CMP in AM #Insomnia - Continue ORAL THERAPIST fluoxetine - melatonin 3 mg PRN Diet: [...] Hall . RL ELIAS MD Medicine Service, [address] Securely message with [employer] ([employer] info) Text page via [facility] [...] Narrative EXAM: XR CHEST 2 VIEWS LOCATION: [facility] DATE: 06/16/2024 INDICATION: chest pain COMPARISON: 06/12/2024 Impression IMPRESSION: Left chest port catheter in stable position. Stable position of right central venous catheter. No airspace opacity, pleural effusion or pneumothorax. Cosigned by German Hall MD at 06/18/2024 3:07 PM LAWYER ER ER ER Associated attestation - German Hall MD - 06/18/2024 3:07 PM LAWYER Attestation: This patient has been seen and evaluated by me, German Hall MD. Discussed with the house staff team or resident(s) and agree with the findings and plan in this note. I have reviewed today's Medications, Vital Signs, and Labs. DOS 06/17 documented in this encounter H&P Notes * Laquita Kelley MD - 06/16/2024 7:59 PM CST [facility] History and Physical - Medicine [...] IV -mIVF with NS at 100ml/hr -Continue ORAL THERAPIST hydroxyurea 1000mg BID -Continue ORAL THERAPIST folic acid 1mg -PRN zofran for nausea -PRN benadryl for itching #ANGIE Likely prerenal with decreased PO intake. -mIVF with NS -Monitor #Insomnia -Continue ORAL THERAPIST fluoxetine Diet: Regular DVT Prophylaxis: Enoxaparin (Lovenox) SQ Santiago Catheter: Not present Fluids: NS at 100ml/hr Lines: PRESENT Cardiac Monitoring: None Code Status: Full Clinically Significant Risk Factors Present on Admission # Anemia: based on hgb <11 # Financial/Environmental Concerns: Disposition Plan Expected Discharge Date: 06/18/2024 The patient's care was discussed with the Attending Physician, Dr. Markham . 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, had port-a-cath in [facility] Functional asplenia Gallstones Hb-SS disease without [...] 4 MG/0.1ML nasal spray No No Sig: Hayden 1 spray (4 mg) into one nostril [...] Esdras Markham MD at 06/17/2024 11:00 AM LAWYER ER ER Associated attestation - Esdras Markham MD - 06/17/2024 11:00 AM LAWYER Physician Attestation I saw this patient with [...] this encounter Consult Notes * Adelaide Acevedo, WATER RESOURCE MANAGER - 06/18/2024 10:26 AM CSTAssociated Order(s): CARE [...] Communication Assessment Patient's communication style: spoken language (Estonian or Bilingual) Cognitive Cognitive/Neuro/Behavioral: WDL Living Environment: [...] Depression: Not at risk (04/11/2024) [facility] PHQ-2 PHQ-2 TOTAL SCORE: 1 [...] Social Connections: Socially Integrated (03/28/2024) Received from [facility] Social Connections Do you often feel lonely or isolated from those around you?: 0 Health Literacy: Not on file Functional Status: Prior to admission patient needed assistance: Dependent ADLs:: Independent Dependent IADLs:: Independent Assesssment of Functional Status: Not at functional baseline Mental Health Status: Mental Health Status: No Current Concerns Chemical Dependency Status: Chemical Dependency Status: No Current Concerns Values/Beliefs: Spiritual, Cultural Beliefs, Congregational Practices, Values that affect care: no Discussed [...] Care management signing off. LAURA Palacios 06/18/2024 [employer] Social Work and Care Management Department SEARCHABLE in [facility] - search SOCIAL WORK [place] [phone] Wednesday and Wednesday Units: 4A Vocera, 4C Vocera, & 4E Vocera Units: 5A 9519-0470 Vocera, 5A 0871-5572 Vocera , BMT SW 1 BMT SW 2, BMT SW 3 & BMT SW 4 5C OffService 5401 - 5416 5C Off Service 2526-6760 Units: 6A Vocera & 6B Vocera Units: 6C Vocera Units: 7A Vocera & 7B Vocera Units: 7C Med Surg 7401 thru 7418 and 7C Med Surg 7502 thru 7521 Unit: [place] ED Vocera & [place] Obs Vocera [facility] ([phone]) Wednesday and Wednesday Units: 5 Ortho Vocera, 5 Med Surg Vocera & WB ED Vocera Units: 6 Med Surg Vocera, 8 Med Surg Vocera, & 10 ICU Vocera After hours Vocera [facility] and After Hours Vocera [place] Please NOTE changes to times below: Wednesday & Wednesday (1629 - 2029) Wed-Wed (7670-3257) FV Recognized Holidays (6144-8085) Units: ALL - see above VOCERA links to units ER * Drake Nina MD - 06/17/2024 8:55 AM CSTAssociated Order(s): HEMATOLOGY ADULT IP CONSULT Images from the original note were not included. Hematology Consult Note Date of Service: 06/17/2024 Patient: Gianna Hernández Admission Date: 06/16/2024 Hospital Day # 1 Hematology Diagnosis: Sickle Cell Disease Primary Outpatient Census Taker: Dr. Samuel Reason for Consult: Vasoocclusive pain [...] or pneumothorax and hence no concern for acutechest. Hemoglobin was noted to be 6.3 on [...] the care coordination note. Please continue her ORAL THERAPIST hydrea and folic acid. Recommendations: - Please follow pain plan as outlined in the care coordination note in the summary section. - Ordered 1 unit PRBC along with blood consent which is placed in the chart. - Please continue ORAL THERAPIST hydrea 1000 mg BID, Folate 1mg daily. [...] Drake Nina MD Hematology/Oncology/BMT Fellow PGY4 Pager: [phone] History of Present Illness: Gianna Hernández is [...] Currently Drug use: Never Social History Narrative Htjq-cg-easf mom. Recently moved to [place] from [place], [place]. She is 1 of 9 [...] Social Connections: Socially Integrated (03/28/2024) [facility] Social [facility]ctions Do you often [...] 0750 lidocaine (LMX4) cream Topical Q1H PRN Lauqita Kelley MD lidocaine 1 % 0.1-1 mL [...] inadequate. naloxone (NARCAN) 4 MG/0.1ML nasal spray Hayden 1 spray (4 mg) into one nostril [...] Araceli Ramires MD at 06/17/2024 11:14 AM LAWYER ER ER Associated attestation - Araceli Ramires MD - 06/17/2024 11:14 AM LAWYER Hematology Consult Attending Attestation I reviewed the [...] Overall, I spent 60 minutes today (DOS) uhni-vm-kxwi and/or coordinating care as documented above and specifically listed as below: --Reviewing documentation related to patient's history and this current admission available in [facility] --Review and clinical interpretation of pertinent [...] Means of arrival: Comments: G 41 ER * Abimael Schofield MD - 06/16/2024 5:18 PM CST ED Provider Note [facility] History Chief Complaint Patient presents with [...] sinus tachycardia rate of 122 with a WI interval of 0.128 and a QRS duration of 0.074. The patient had a normal axis with no acute ST or T wave changes significant for ischemia. This is read by me personally. Procedures Results for orders placed or performed during the hospital encounter of 06/16/24 Chest XR, PA & LAT Status: None Narrative EXAM: XR CHEST 2 VIEWS LOCATION: [facility] DATE: 06/16/2024 INDICATION: chest pain [...] Range ABO/RH(D) A POS SPECIMEN EXPIRATION DATE [id number] CBC with platelets differential Status: Abnormal (In process) Narrative The following orders were created for panel order CBC with platelets differential. Procedure Abnormality Status --------- ------ CBC with platelets and d...[[id number]] Abnormal Preliminary result RBC and Platelet Morphology[[id number]] In process Please view results for these tests on the individual orders. ABO/Rh type and screen Status: None (In process) Narrative The following orders were created for panel order ABO/Rh type and screen. Procedure Abnormality Status --------- ------ Adult Type and Screen[[id number]] Preliminary result Please view results for these tests on the individual orders. Medications sodium chloride (PF) 0.9% PF flush 3 mL (has no administration in time range) sodium chloride (PF) 0.9% PF flush 3 mL (has no administration in time range) sodium chloride 0.9% BOLUS 500 mL (500 mLs Intravenous $New Bag 06/16/24 9682) sodium chloride 0.9 % infusion (has no administration in time range) hydromorphone (DILAUDID) injection 2 mg (2 mg Intravenous $Given 06/16/24 6173) Critical care was not performed. Medical Decision [...] chest syndrome Admit Med Abimael Schofield MD [facility] EMERGENCY DEPARTMENT 06/16/2024 Abimael Schofield MD 06/16/24 1846 ER * Yelitza Manriquez RN - 06/16/2024 4:37 [...] WDL Cognitive/Neuro/Behavioral WDL Cognitive/Neuro/Behavioral WDL WDL ER documented in this encounter Miscellaneous Notes * [...] hope to discharge to home today ER * Summary of Care - Rene Morocho RN - 06/20/2024 12:38 AM CST (Change note type to summary of care) Reason for admission: Sickle cell crisis Admitted from: [facility] Report received from: Sarai Aburto 2, RN skin assessment completed by: Ar Fleming [...] (January-July only): No, pt declined Detailed Belongings: [place] sweater, brown jacket, sweatpants, glasses, wallet, phone, 2 chargers, air pods ER * Plan of Care - Sarai Shrestha RN - 06/20/2024 12:11 AM CST Goal Outcome Evaluation: BP 103/79,HR 87bpm, resp 18,O2 99 RA Shift:0877-1467 Alert and oriented x4. Independent with ADLs. VSS. Pain managed with Q 2 hrs IV Dilaudid. C/O nausea PRN Zofran administered;effective. R chest port infusing LR @ 75 ml/hr. Report given to Rene BLACK in 7C. ER * Plan of Care - Amelia Gannon RN - 06/19/2024 6:26 AM CST Images from the original note were not included. Shift: 3230-3466 VS: BP 118/85 (BP Location: Left arm) Pulse 99 Temp 98.2 ??F (36.8 ??C) (Oral) Resp 18 MtO188% Pain: Sickle cell pain. Tx with scheduled dilaudid q2hr Neuro: WDL, A&Ox4 Cardiac: WDL Respiratory: WDL, on RA, on pulse ox GI/: WDL, Voiding spontaneously Diet/Appetite: Regular diet LDA's: R. Chest port infusing LR @ 75 Skin: WDL Activity: Independent Tests/Procedures: Pertinent Labs/Lab Collection: Plan: Goal Outcome Evaluation: ER * Plan of Care - Adelaide Acevedo MSW - 06/18/2024 11:05 AM CST Goal Outcome Evaluation: Plan of Care Reviewed With: patient Overall Patient Progress: improvingOverall Patient Progress: improving Pt anticipates discharge home w/ family once med ready ER * Plan of Care - Amelia Gannon RN - 06/18/2024 6:51 AM CST Shift: 7551-2509 VS: BP 115/66 (BP Location: Right arm, [...] Creatinine, Reticulocyte Plan: Goal Outcome Evaluation: ER * Plan of Care - Lowell Pepper RN - 06/17/2024 9:37 PM CSTSummary: 0269-0412 BP 110/64 (BP Location: Right arm, Patient [...] Optimal Comfort and Wellbeing Outcome: Progressing ER * Provider Notification - Lowell Pepper RN - 06/17/2024 10:00 AM CST 06/17/24 0857 Critical Test Results/Notification Critical Lab Result (Lab Name and Value) Hgb 6.3 What Time Did The Lab Notify You? (follow up page. to day time provider.) Provider Notified yes Date of Provider Notification 06/17/24 Time of Provider Notification 0848 Mechanism of Provider notification telephone (via [employer]) What Provider Did You Notify? Neptali Elias MD Response aware (per primary teams. Awaiting recommendations from hematology team.) ER * Plan of Care - Zaynab Veliz RN - 06/17/2024 6:55 AM CST Goal Outcome Evaluation: Plan of Care Reviewed With: patient Overall Patient Progress: improving Outcome Evaluation: Pt presented to ED with acute onset left sided chest pain & sickle cell pain crisis Shift: 9452-0129 VS: Stable on RA, afebrile Neuro: A&Ox4 Labs: hemoglobin 6.3, provider notified Pain/Nausea: pain rated 8-9/10 PRN: benadryl X2, zofran x 1 Diet: Regular IV Access: none Infusion(s): NACL 100ml/hr Lines/Drains: L-chest wall GI/: voids without difficulty Skin: intact Mobility: up ad chandler Plan: Continue POC ER * Provider Notification - Zaynab Veliz RN - 06/17/2024 6:47 AM LAWYER Jovan encinas lab called, critical value, pt hemoglobin 6.3. ER * Medication Scribe - Admission Medication History - Yennifer Edwards - 06/17/2024 4:14 AM CST Medication Scribe Admission Medication History Admission medication history is complete. The information provided in this note is only as accurateas the sources available at the time of the update. Information Source(s): Patient via in-person Pertinent Information: per pt+CE, pt reported taking medications on ORAL THERAPIST medication list as directed. No DRH. Changes made to ORAL THERAPIST medication list: Added: None Deleted: None Changed: None Allergies reviewed with patient and updates made in EHR: yes Medication History Completed By: Yennifer Edwards 06/17/2024 4:14 AM ORAL THERAPIST Med List Medication Sig Last Dose/Taking cefpodoxime [...] tablet by mouth daily. 06/16/2024 Morning ER ER documented in this encounter Plan of Treatment Upcoming Encounters Date Type Department Care Team (Late st Contact Info) Description 07/04/2024 9:00 AM CDT Lab [address] [phone] Case Samuel MD [address] [place] [address], [address] [place] [address] 07/06/2024 8:[address] [facility] Advanced Treatment [address] [phone] Case Samuel MD [address] [place] [address], [address] [place] [address] 07/10/2024 11:30 AM CDT Oncology Visit [address] [address] [place] [phone] Case Samuel MD [address] [facility] [address], [address] [place] [address] documented as of this encounter Goals Goal Patient Goal Type Associated Problems Recent Progress Patient-Stated? Author Pain Management General On track( 025 12:40 PM LAWYER) Yes Juhi Benson, RN Note: Goal Statement: [...] PLATELETS AND DIFFERENTIAL STAT 06/20/2024 5:48 AM LAWYER LACTATE DEHYDROGENASE Routine 06/20/2024 5:48 AM LAWYER CBC WITH PLATELETS & DIFFERENTIAL STAT 06/20/2024 5:48 AM LAWYER RETICULOCYTE COUNT Routine 06/20/2024 5: 48 AM LAWYER COMPREHENSIVE METABOLIC PANEL Routine 06/20/2024 5:48 AM LAWYER RBC AND PLATELET MORPHOLOGY STAT 06/19/2024 9:30 AM LAWYER CBC WITH PLATELETS AND DIFFERENTIAL STAT 06/19/2024 9:30 AM LAWYER LACTATE DEHYDROGENASE STAT 06/19/2024 9:30 AM LAWYER CBC WITH PLATELETS & DIFFERENTIAL STAT 06/19/2024 9:30 AM LAWYER RETICULOCYTE COUNT STAT 06/19/2024 9: 30 AM LAWYER COMPREHENSIVE METABOLIC PANEL STAT 06/19/2024 9:30 AM LAWYER PLATELET COUNT STAT 06/19/2024 12:17 AM LAWYER CREATININE STAT 06/19/2024 12:17 AM LAWYER CBC WITH PLATELETS AND DIFFERENTIAL STAT 06/18/2024 8:24 AM LAWYER LACTATE DEHYDROGENASE STAT 06/18/2024 8:24 AM LAWYER CBC WITH PLATELETS & DIFFERENTIAL STAT 06/18/2024 8:24 AM LAWYER RETICULOCYTE COUNT STAT 06/18/2024 8: 24 AM LAWYER DIFFERENTIAL STAT 06/18/2024 8:24 AM LAWYER COMPREHENSIVE METABOLIC PANEL STAT 06/18/2024 8:24 AM LAWYER ROUTINE UA WITH MICROSCOPIC REFLEX TO CULTURE STAT 06/17/2024 1:11 PM LAWYER TRANSFUSE RED BLOOD CELLS (UNIT) STAT 06/17/2024 10:26 AM LAWYER PREPARE RED BLOOD CELLS (UNIT) STAT 06/17/2024 9:12 AM LAWYER TRANSFERRIN Add-On 06/17/2024 6:16 AM LAWYER IRON AND IRON BINDING CAPACITY Add-On 06/17/2024 6:16 AM LAWYER BASIC METABOLIC PANEL STAT 06/17/2024 6:16 AM LAWYER CBC WITH PLATELETS STAT 06/17/2024 6: 16 AM LAWYER TROPONIN T, HIGH SENSITIVITY STAT 06/16/2024 9:33 PM LAWYER XR CHEST 2 VIEWS STAT 06/16/2024 6:09 PM LAWYER RBC AND PLATELET MORPHOLOGY STAT 06/16/2024 5:37 PM LAWYER CBC WITH PLATELETS AND DIFFERENTIAL STAT 06/16/2024 5:37 PM LAWYER TYPE AND SCREEN, ADULT STAT 5:37 PM LAWYER TROPONIN T, HIGH SENSITIVITY STAT 06/16/2024 5:37 PM LAWYER CBC WITH PLATELETS & DIFFERENTIAL STAT 06/16/2024 5:37 PM LAWYER PROLACTIN STAT 06/16/2024 5:37 PM LAWYER COMPREHENSIVE METABOLIC PANEL STAT 06/16/2024 5:37 PM LAWYER BLOOD CULTURE STAT 06/16/2024 5:37 PM LAWYER ABO/RH TYPE AND SCREEN STAT 5:37 PM LAWYER EKG 12-LEAD, TRACING ONLY STAT 06/16/2024 4:55 PM LAWYER documented in this encounter Results * (ABNORMAL) CBC with platelets and differential (06/20/2024 5:48 AM LAWYER) [facility] WBC Count 9.3 4.0 - 11.0 10e3/uL 06/20/2024 6:05 AM LAWYER [facility] RBC Count 2.54(L) 3.80 - 5.20 10e6/uL 06/20/2024 6:05 AM LAWYER [facility] Hemoglobin 8.0(L) 11.7 - 15.7 g/dL 06/20/2024 6:05 AM LAWYER [facility] Hematocrit 23.2(L) 35.0 - 47.0 % 06/20/2024 6:05 AM LAWYER [facility] MCV 91 78 - 100 fL 06/20/2024 6:05 AM LAWYER [facility] MCH 31.5 26.5 - 33.0 pg 06/20/2024 6:05 AM LAWYER [facility] MCHC 34.5 31.5 - 36.5 g/dL 06/20/2024 6:05 AM LAWYER [facility] RDW 18.4(H) 10.0 - 15.0 % 06/20/2024 6:05 AM LAWYER [facility] Platelet Count 435 150 - 450 10e3/uL 06/20/2024 6:05 AM LAWYER [facility] % Neutrophils 47 % 06/20/2024 6:05 AM LAWYER [facility] % Lymphocytes 43 % 06/20/2024 6:05 AM LAWYER [facility] % Monocytes 6 % 06/20/2024 6:05 AM LAWYER [facility] % Eosinophils 3 % 06/20/2024 6:05 AM LAWYER [facility] % Basophils 1 % 06/20/2024 6:05 AM LAWYER [facility] % Immature Granulocytes 1 % 06/20/2024 6:05 AM LAWYER [facility] NRBCs per 100 WBC 1(H) <1 /100 025 6:05 AM LAWYER [facility] Absolute Neutrophils 4.4 1.6 - 8.3 10e3/uL 06/20/2024 6:05 AM LAWYER [facility] Absolute Lymphocytes 4.0 0.8 - 5.3 10e3/uL 06/20/2024 6:05 AM LAWYER [facility] Absolute Monocytes 0.5 0.0 - 1.3 10e3/uL 06/20/2024 6:05 AM LAWYER [facility] Absolute Eosinophils 0.3 0.0 - 0.7 10e3/uL 06/20/2024 6:05 AM LAWYER [facility] Absolute Basophils 0.1 0.0 - 0.2 10e3/uL 06/20/2024 6:05 AM LAWYER [facility] Absolute Immature Granulocytes 0.1 <=0.4 10e3/uL 06/20/2024 6:05 AM LAWYER [facility] Absolute NRBCs 0.1 10e3/uL 06/20/2024 6:05 AM LAWYER [facility] Blood (Portacath) IVAD (Port) / Unknown 06/20/2024 5:48 AM LAWYER 06/20/2024 5:55 AM LAWYER Rl Elias MD LAB - BLOOD ORDER SYD Final Result [facility] [place] [facility] [address] [facility], [address] [phone] [place] [address] * (ABNORMAL) Reticulocyte count (06/20/2024 5:48 AM LAWYER) % Reticulocyte 9.6(H) 0.5 - 2.0 % 06/20/2024 6:37 AM LAWYER [facility] Absolute Reticulocyte 0.236(H) 0.025 - 0.095 10e6/uL 06/20/2024 6:37 AM LAWYER [facility] Blood (Portacath) IVAD (Port) / Unknown 06/20/2024 5:48 AM LAWYER 06/20/2024 5:55 AM LAWYER Rl Elias MD LAB - BLOOD ORDER SYD Final Result [facility] [place] [facility] [address] [facility], [address] * (ABNORMAL) Comprehensive metabolic panel (06/20/2024 5:48 AM LAWYER) Sodium 133(L) 135 - 145 mmol/L 06/20/2024 6:35 AM LAWYER [facility] Potassium 4.6 3.4 - 5.3 mmol/L 06/20/2024 6:35 AM LAWYER [facility] Carbon Dioxide (CO2) 21(L) 22 - 29 mmol/L 06/20/2024 6:35 AM LAWYER [facility] Anion Gap 8 7 - 15 mmol/L 06/20/2024 6:35 AM LAWYER [facility] Urea Nitrogen 14.6 6.0 - 20.0 mg/dL 06/20/2024 6:35 AM LAWYER [facility] Creatinine 0.66 0.51 - 0.95 mg/dL 06/20/2024 6:35 AM LAWYER [facility] GFR Estimate >90 >60 mL/min/1.7 3m2 06/20/2024 6:35 AM LAWYER [facility] Comment:eGFR calculated us2020 CKD-EPI equation. Calcium 8.7(L) 8.8 - 10.4 mg/dL 06/20/2024 6:35 AM LAWYER [facility] Chloride 104 98 - 107 mmol/L 06/20/2024 6:35 AM LAWYER [facility] Glucose 100(H) 70 - 99 mg/dL 06/20/2024 6:35 AM LAWYER [facility] Alkaline Phosphatase 98 40 - 150 U/L 06/20/2024 6:35 AM LAWYER [facility] AST 67(H) 0 - 45 U/L 06/20/2024 6:35 AM LAWYER [facility] ALT 40 0 - 50 U/L 06/20/2024 6:35 AM LAWYER [facility] Protein Total 7.2 6.4 - 8.3 g/dL 06/20/2024 6:35 AM LAWYER [facility] Albumin 3.9 3.5 - 5.2 g/dL 06/20/2024 6:35 AM LAWYER [facility] Bilirubin Total 1.5(H) <=1.2 mg/dL 06/20/2024 6:35 AM LAWYER [facility] Blood (Portacath) IVAD (Port) / Unknown 06/20/2024 5:48 AM LAWYER 06/20/2024 5:55 AM LAWYER us Rl Elias MD LAB - BLOOD ORDER SYD Final Result [facility] [place] [facility] [address] [facility], [address] [place] [phone] * (ABNORMAL) Lactate Dehydrogenase (06/20/2024 5:48 AM LAWYER) Lactate Dehydrogenase 571(H) 0 - 250 U/L 06/20/2024 6:35 AM LAWYER [facility] Blood (Portacath) IVAD (Port) / Unknown 06/20/2024 5:48 AM LAWYER 06/20/2024 5:55 AM LAWYER Rl Elias MD LAB - BLOOD ORDER SYD Final Result [facility] [place] [facility] [address] [facility], [address] [phone] * (ABNORMAL) RBC and Platelet Morphology (06/19/2024 9:30 AM LAWYER) Pathologist [facility] RBC Morphology Confirmed RBC Indices 06/19/2024 11:43 AM LAWYER [facility] Platelet Assessment Automated Count Confirmed. Giant platelets are present.(A) Automated Count Confirmed. Platelet morphology is normal. 06/19/2024 11:43 AM LAWYER [facility] Giant Platelets Slight(A) None Seen 11:43 AM LAWYER [facility] Elliptocytes None Seen None Seen 06/19/2024 11:43 AM LAWYER [facility] Polychromasia Slight(A) None Seen 06/19/2024 11:43 AM LAWYER [facility] RBC Fragments Slight(A) None Seen 06/19/2024 11:43 AM LAWYER [facility] Reactive Lymphocytes Present(A) None Seen 06/19/2024 11:43 AM LAWYER [facility] Sickle Cells Moderate(A) None Seen 06/19/2024 11:43 AM LAWYER [facility] Smudge Cells Present(A) None Seen 06/19/2024 11:43 AM LAWYER [facility] Target Cells Moderate(A) None Seen 06/19/2024 11:43 AM LAWYER [facility] Blood CENTRAL VENOUS CATHETER / Unknown VAD(CVC, PICC) / Unknown 06/19/2024 9:30 AM LAWYER 06/19/2024 9:42 AM LAWYER Rl Elias MD LAB - BLOOD ORDER SYD Final Result [facility] [place] [facility] [address] [facility], [address] [phone] * (ABNORMAL) CBC with platelets and differential (06/19/2024 9:30 AM LAWYER) [facility] WBC Count 9.9 4.0 - 11.0 10e3/uL 06/19/2024 11:43 AM LAWYER [facility] RBC Count 2.55(L) 3.80 - 5.20 10e6/uL 06/19/2024 11:43 AM LAWYER [facility] Hemoglobin 8.1(L) 11.7 - 15.7 g/dL 06/19/2024 11:43 AM LAWYER [facility] Hematocrit 24.0(L) 35.0 - 47.0 % 06/19/2024 11:43 AM LAWYER [facility] MCV 94 78 - 100 fL 06/19/2024 11:43 AM LAWYER [facility] MCH 31.8 26.5 - 33.0 pg 06/19/2024 11:43 AM LAWYER [facility] MCHC 33.8 31.5 - 36.5 g/dL 06/19/2024 11:43 AM LAWYER [facility] RDW 18.4(H) 10.0 - 15.0 % 06/19/2024 11:43 AM LAWYER [facility] Platelet Count 471(H) 150 - 450 10e3/uL 06/19/2024 11:43 AM LAWYER [facility] % Neutrophils 62 % 06/19/2024 11:43 AM LAWYER [facility] % Lymphocytes 28 % 06/19/2024 11:43 AM LAWYER [facility] % Monocytes 6 % 06/19/2024 11:43 AM LAWYER [facility] % Eosinophils 3 % 06/19/2024 11:43 AM LAWYER [facility] % Basophils 1 % 06/19/2024 11:43 AM LAWYER [facility] % Immature Granulocytes 1 % 06/19/2024 11:43 AM LAWYER [facility] NRBCs per 100 WBC 4(H) <1 /100 025 11:43 AM LAWYER [facility] Absolute Neutrophils 6.1 1.6 - 8.3 10e3/uL 06/19/2024 11:43 AM LAWYER [facility] Absolute Lymphocytes 2.7 0.8 - 5.3 10e3/uL 06/19/2024 11:43 AM LAWYER [facility] Absolute Monocytes 0.6 0.0 - 1.3 10e3/uL 06/19/2024 11:43 AM LAWYER [facility] Absolute Eosinophils 0.3 0.0 - 0.7 10e3/uL 06/19/2024 11:43 AM LAWYER [facility] Absolute Basophils 0.1 0.0 - 0.2 10e3/uL 06/19/2024 11:43 AM LAWYER [facility] Absolute Immature Granulocytes 0.1 <=0.4 10e3/uL 06/19/2024 11:43 AM LAWYER [facility] Absolute NRBCs 0.4 10e3/uL 06/19/2024 11:43 AM LAWYER [facility] Blood CENTRAL VENOUS CATHETER / Unknown VAD(CVC, PICC) / Unknown 06/19/2024 9:30 AM LAWYER 06/19/2024 9:42 AM LAWYER Rl Elias MD LAB - BLOOD ORDER SYD Final Result Performing Organization Address City/[facility] de Phone Number [facility] [place] [facility] [address] [facility], [facility] [address] * (ABNORMAL) Reticulocyte count (06/19/2024 9:30 AM LAWYER) % Reticulocyte 9.2(H) 0.5 - 2.0 % 06/19/2024 9:48 AM LAWYER [facility] Absolute Reticulocyte 0.234(H) 0.025 - 0.095 10e6/uL 06/19/2024 9:48 AM LAWYER [facility] Blood CENTRAL VENOUS CATHETER / Unknown VAD(CVC, PICC) / Unknown 06/19/2024 9:30 AM LAWYER 06/19/2024 9:42 AM LAWYER Rl Elias MD LAB - BLOOD ORDER SYD Final Result [facility] [place] [facility] [address] [facility], [address] [phone] * (ABNORMAL) Comprehensive metabolic panel (06/19/2024 9:30 AM LAWYER) Sodium 135 135 - 145 mmol/L 06/19/2024 10:13 AM LAWYER [facility] Potassium 4.4 3.4 - 5.3 mmol/L 06/19/2024 10:13 AM LAWYER [facility] Carbon Dioxide (CO2) 21(L) 22 - 29 mmol/L 06/19/2024 10:13 AM LAWYER [facility] Anion Gap 9 7 - 15 mmol/L 06/19/2024 10:13 AM LAWYER [facility] Urea Nitrogen 12.3 6.0 - 20.0 mg/dL 06/19/2024 10:13 AM LAWYER [facility] Creatinine 0.68 0.51 - 0.95 mg/dL 06/19/2024 10:13 AM LAWYER [facility] GFR Estimate >90 >60 mL/min/1.7 3m2 06/19/2024 10:13 AM LAWYER [facility] Comment:eGFR calculated 2020 CKD-EPI equation. Calcium 8.9 8.8 - 10.4 mg/dL 06/19/2024 10:13 AM LAWYER [facility] Chloride 105 98 - 107 mmol/L 06/19/2024 10:13 AM LAWYER [facility] Glucose 100(H) 70 - 99 mg/dL 06/19/2024 10:13 AM LAWYER [facility] Alkaline Phosphatase 94 40 - 150 U/L 06/19/2024 10:13 AM LAWYER [facility] AST 54(H) 0 - 45 U/L 06/19/2024 10:13 AM LAWYER [facility] ALT 31 0 - 50 U/L 06/19/2024 10:13 AM LAWYER [facility] Protein Total 7.1 6.4 - 8.3 g/dL 06/19/2024 10:13 AM LAWYER [facility] Albumin 3.9 3.5 - 5.2 g/dL 06/19/2024 10:13 AM LAWYER [facility] Bilirubin Total 1.5(H) <=1.2 mg/dL 06/19/2024 10:13 AM LAWYER [facility] Blood CENTRAL VENOUS CATHETER / Unknown VAD(CVC, PICC) / Unknown 06/19/2024 9:30 AM LAWYER 06/19/2024 9:41 AM LAWYER Rl Elias MD LAB - BLOOD ORDER SYD Final Result [facility] [place] [facility] [address] [facility], [address] [phone] * (ABNORMAL) Lactate Dehydrogenase (06/19/2024 9:30 AM LAWYER) Lactate Dehydrogenase 507(H) 0 - 250 U/L 06/19/2024 10:13 AM LAWYER [facility] Blood CENTRAL VENOUS CATHETER / Unknown VAD(CVC, PICC) / Unknown 06/19/2024 9:30 AM LAWYER 06/19/2024 9:41 AM LAWYER Rl Elias MD LAB - BLOOD ORDER SYD Final Result Performing Organization Address City/[facility]/ZIP Co de Phone Number LABORATORY [facility] [address] [facility], [address] [phone] * (ABNORMAL) Platelet count (06/19/2024 12:17 AM LAWYER) Pathologist [facility] Platelet Count 467(H) 150 - 450 10e3/uL 06/19/2024 12:44 AM LAWYER [facility] Blood BLOOD SPECIMEN / Unknown Venipuncture / Unknown 06/19/2024 12:17 AM LAWYER 06/19/2024 12:26 AM LAWYER Laquita Kelley MD LAB - BLOOD ORDERABLES Final Re sult LABORATORY [facility] [place] [facility] [address] [facility], [address] [phone] * Creatinine (06/19/2024 12:17 AM LAWYER) Creatinine 0.72 0.51 - 0.95 mg/dL 06/19/2024 12:51 AM LAWYER [facility] GFR Estimate >90 >60 mL/min/1.7 3m2 06/19/2024 12:51 AM LAWYER [facility] Comment:eGFR calculated usin 2020 CKD-EPI equation. Blood BLOOD SPECIMEN / Unknown Venipuncture / Unknown 06/19/2024 12:17 AM LAWYER 06/19/2024 12:26 AM LAWYER us Laquita Kelley MD LAB - BLOOD ORDERABLES Final Re sult [facility] [place] [facility] [address] [facility], [address] [place] [phone] * (ABNORMAL) Manual Differential (06/18/2024 8:24 AM LAWYER) % Neutrophils 52 % 06/18/2024 9:35 AM LAWYER [facility] % Lymphocytes 39 % 06/18/2024 9:35 AM LAWYER [facility] % Monocytes 7 % 06/18/2024 9:35 AM LAWYER [facility] % Eosinophils 3 % 06/18/2024 9:35 AM LAWYER [facility] % Basophils 0 % 06/18/2024 9:35 AM LAWYER [facility] NRBCs per 100 WBC 13(H) <=0 % 06/18/2024 9:35 AM LAWYER [facility] Absolute Neutrophils 5.6 1.6 - 8.3 10e3/uL 06/18/2024 9:35 AM LAWYER [facility] Absolute Lymphocytes 4.2 0.8 - 5.3 10e3/uL 06/18/2024 9:35 AM LAWYER [facility] Absolute Monocytes 0.7 0.0 - 1.3 10e3/uL 06/18/2024 9:35 AM LAWYER [facility] Absolute Eosinophils 0.3 0.0 - 0.7 10e3/uL 06/18/2024 9:35 AM LAWYER [facility] Absolute Basophils 0.0 0.0 - 0.2 10e3/uL 06/18/2024 9:35 AM LAWYER [facility] Absolute NRBCs 1.4(H) <=0.0 10e3/uL 025 9:35 AM LAWYER [facility] RBC Morphology Confirmed RBC Indices 06/18/2024 9:35 AM LAWYER [facility] Platelet Assessment Automated Count Confirmed. Platelet morphology is normal. Automated Count Confirmed. Platelet morphology is normal. 06/18/2024 9:35 AM LAWYER [facility] RBC Fragments Slight(A) None Seen 06/18/2024 9:35 AM LAWYER [facility] Polychromasia Slight(A) None Seen 06/18/2024 9:35 AM LAWYER [facility] Sickle Cells Moderate(A) None Seen 06/18/2024 9:35 AM LAWYER [facility] Blood BLOOD SPECIMEN / Unknown Venipuncture / Unknown 06/18/2024 8:24 AM LAWYER 06/18/2024 8:32 AM LAWYER us Rl Elias MD LAB - BLOOD ORDER SYD Final Result [facility] [place] [facility] [address] [facility], [address] [place] [address] * (ABNORMAL) CBC with platelets and differential (06/18/2024 8:24 AM LAWYER) WBC Count 10.8 4.0 - 11.0 10e3/uL 06/18/2024 9:24 AM LAWYER [facility] RBC Count 2.51(L) 3.80 - 5.20 10e6/uL 06/18/2024 9:24 AM LAWYER [facility] Hemoglobin 8.1(L) 11.7 - 15.7 g/dL 06/18/2024 9:24 AM LAWYER [facility] Hematocrit 23.1(L) 35.0 - 47.0 % 06/18/2024 9:24 AM LAWYER [facility] MCV 92 78 - 100 fL 06/18/2024 9:24 AM LAWYER [facility] MCH 32.3 26.5 - 33.0 pg 06/18/2024 9:24 AM LAWYER [facility] MCHC 35.1 31.5 - 36.5 g/dL 06/18/2024 9:24 AM LAWYER [facility] RDW 18.7(H) 10.0 - 15.0 % 06/18/2024 9:24 AM LAWYER [facility] Platelet Count 452(H) 150 - 450 10e3/uL 06/18/2024 9:24 AM LAWYER [facility] Blood BLOOD SPECIMEN / Unknown Venipuncture / Unknown 06/18/2024 8:24 AM LAWYER 06/18/2024 8:32 AM LAWYER Rl Elias MD LAB - BLOOD ORDER SYD Final Result Performing Organization Address City/[facility]/ZIP Co de Phone Number [facility] [place] [facility] [address] [facility], [address] * (ABNORMAL) Reticulocyte count (06/18/2024 8:24 AM LAWYER) % Reticulocyte 10.0(H) 0.5 - 2.0 % 06/18/2024 8:38 AM LAWYER [facility] Absolute Reticulocyte 0.250(H) 0.025 - 0.095 10e6/uL 06/18/2024 8:38 AM LAWYER [facility] Blood BLOOD SPECIMEN / Unknown Venipuncture / Unknown 06/18/2024 8:24 AM LAWYER 06/18/2024 8:32 AM LAWYER Rl Elias MD LAB - BLOOD ORDER SYD Final Result [facility] [place] [facility] [address] [facility], [address] * (ABNORMAL) Comprehensive metabolic panel (06/18/2024 8:24 AM LAWYER) Sodium 133(L) 135 - 145 mmol/L 06/18/2024 9:02 AM LAWYER [facility] Potassium 4.3 3.4 - 5.3 mmol/L 06/18/2024 9:02 AM LAWYER [facility] Carbon Dioxide (CO2) 21(L) 22 - 29 mmol/L 06/18/2024 9:02 AM LAWYER [facility] Anion Gap 7 7 - 15 mmol/L 06/18/2024 9:02 AM LAWYER [facility] Urea Nitrogen 9.2 6.0 - 20.0 mg/dL 06/18/2024 9:02 AM LAWYER [facility] Creatinine 0.65 0.51 - 0.95 mg/dL 06/18/2024 9:02 AM LAWYER [facility] GFR Estimate >90 >60 mL/min/1.7 3m2 06/18/2024 9:02 AM LAWYER [facility] Comment:eGFR calculated 2020 CKD-EPI equation. Calcium 8.7(L) 8.8 - 10.4 mg/dL 06/18/2024 9:02 AM LAWYER [facility] Chloride 105 98 - 107 mmol/L 06/18/2024 9:02 AM LAWYER [facility] Glucose 92 70 - 99 mg/dL 06/18/2024 9:02 AM LAWYER [facility] Alkaline Phosphatase 86 40 - 150 U/L 06/18/2024 9:02 AM LAWYER [facility] AST 45 0 - 45 U/L 06/18/2024 9:02 AM LAWYER [facility] ALT 27 0 - 50 U/L 06/18/2024 9:02 AM LAWYER [facility] Protein Total 7.0 6.4 - 8.3 g/dL 06/18/2024 9:02 AM LAWYER [facility] Albumin 3.9 3.5 - 5.2 g/dL 06/18/2024 9:02 AM LAWYER [facility] Bilirubin Total 1.4(H) <=1.2 mg/dL 06/18/2024 9:02 AM LAWYER [facility] Blood BLOOD SPECIMEN / Unknown Venipuncture / Unknown 06/18/2024 8:24 AM LAWYER 06/18/2024 8:32 AM LAWYER us Rl Elias MD LAB - BLOOD ORDER SYD Final Result [facility] [place] [facility] [address] [facility], [address] [place] [phone] * (ABNORMAL) Lactate Dehydrogenase (06/18/2024 8:24 AM LAWYER) Lactate Dehydrogenase 491(H) 0 - 250 U/L 06/18/2024 9:02 AM LAWYER [facility] Blood BLOOD SPECIMEN / Unknown Venipuncture / Unknown 06/18/2024 8:24 AM LAWYER 06/18/2024 8:32 AM LAWYER Rl Elias MD LAB - BLOOD ORDER SYD Final Result [facility] [place] [facility] [address] [facility] [address], [address] [place] [address], [facility] * Transfuse red blood cells (unit), Sickle Cell (Hgb S) Negative (06/17/2024 2:33 PM LAWYER) Drake Nina MD BLOOD TRANSFUSION ORDERABLES Final Result * Transfuse red blood cells (unit), 1 Units, Sickle Cell (Hgb S) Negative (06/17/2024 2:33 PM LAWYER) Drake Nina MD BLOOD TRANSFUSION ORDERABLES Final Result * (ABNORMAL) UA with Microscopic reflex to Culture (06/17/2024 1:11 PM LAWYER) Color Urine Light Yellow Colorless, Straw, Light Yellow, Yellow 06/17/2024 1:48 PM LAWYER [facility] Appearance Urine Clear Clear 06/17/19 1:48 PM LAWYER [facility] Glucose Urine Negative Negative mg/dL 06/17/2024 1:48 PM LAWYER [facility] Bilirubin Urine Negative Negative 1:48 PM LAWYER [facility] Ketones Urine Negative Negative mg/dL 06/17/2024 1:48 PM LAWYER [facility] Specific [place] Urine 1.009 1.003 - 1.035 06/17/2024 1:48 PM LAWYER [facility] Blood Urine Trace(A) Negative 06/17/2024 1:48 PM LAWYER [facility] pH Urine 6.5 5.0 - 7.0 06/17/2024 1:48 PM LAWYER [facility] Protein Albumin Urine Negative Negative mg/dL 06/17/2024 1:48 PM LAWYER [facility] Urobilinogen Urine Normal Normal, 2.0 mg/dL 06/17/2024 1:48 PM LAWYER [facility] Nitrite Urine Negative Negative 06/17/2024 1:48 PM LAWYER [facility] Leukocyte Esterase Urine Small(A) Negative 06/17/2024 1:48 PM LAWYER [facility] RBC Urine <1 <=2 /HPF 06/17/2024 1:48 PM LAWYER [facility] WBC Urine <1 <=5 /HPF 06/17/2024 1:48 PM LAWYER [facility] Squamous Epithelials Urine 3(H) <=1 /HPF 06/17/2024 1:48 PM LAWYER [facility] Urine URINE SPECIMEN OBTAINED BY CLEAN CATCH PROCEDURE / Unknown Non-blood Collection / Unknown 06/17/2024 1:11 PM LAWYER 06/17/2024 1:38 PM LAWYER Narrative [facility] - 06/17/2024 1:48 PM LAWYER Urine Culture not indicated Rl Elias MD LAB - URINE ORDER SYD Final Result [facility] [place] [facility] [address] [facility], [address] [place] [phone] * Prepare red blood cells (unit) (06/17/2024 9:12 AM LAWYER) Pathologist [facility] Blood Component Type Red Blood Cells [facility] Product Code [id number] [facility] BLOO D BANK Unit Status Transfused [facility] BL[facility] D [facility] Unit Number [id number] UU B LOOD BANK CROSSMATCH COMPATIBLE [facility] B[facility] B[facility] CODING SYSTEM [id number] UU BLO OD BANK ISSUE DATE AND TIME [id number] [facility] BLO[facility] B[facility] UNIT ABO/RH A+ [facility] B[facility] B[facility] UNIT TYPE ISBT 6200 U[facility] BL OOD BANK 06/17/2024 9:12 AM LAWYER Drake Nina MD BLOOD BANK PRODUCT ORDERABLES Final Result [facility] B[facility] B[facility] [address] [place] [phone] * (ABNORMAL) Transferrin (06/17/2024 6:16 AM LAWYER) Transferrin 100.0(L) 200.0 - 360.0 mg/dL 06/17/2024 9:36 AM LAWYER [facility] Blood VENOUS LINE / Unknown IVAD (Port) / Unknown 06/17/2024 6:16 AM LAWYER 06/17/2024 6:27 AM LAWYER Draek Nina MD LAB - BLOOD ORDERABLES Final Result Performing Organization Address [facility]/ZIP Co de Phone Number U [facility]AT[facility] [place] [facility] [address] [facility], [address] * Iron and iron binding capacity (06/17/2024 6:16 AM LAWYER) [facility] Iron 123 37 - 145 ug/dL 06/17/2024 10:02 AM LAWYER [facility] Iron Binding Capacity 06/17/2024 10:02 AM LAWYER [facility] Comment:Unable to calculate: UIBC or Iron value is outside detectable level. Iron Sat Index 06/17/2024 10:02 AM LAWYER [facility] Comment:Unable to calculate: UIBC or Iron value is outside detectable level. Blood VENOUS LINE / Unknown IVAD (Port) / Unknown 06/17/2024 6:16 AM LAWYER 06/17/2024 6:27 AM LAWYER Drake Nina MD LAB - BLOOD ORDERABLES Final Result Performing Organization Address City/[facility] Co de Phone Number U [facility]ATORY [facility] [place] [facility] [address] [facility], [address] [phone] * (ABNORMAL) CBC with platelets (06/17/2024 6:16 AM LAWYER) [facility] WBC Count 14.6(H) 4.0 - 11.0 10e3/uL 06/17/2024 6:38 AM LAWYER [facility] RBC Count 1.97(L) 3.80 - 5.20 10e6/uL 06/17/2024 6:38 AM LAWYER [facility] Hemoglobin 6.3(LL) 11.7 - 15.7 g/dL 06/17/2024 6:38 AM LAWYER [facility] Hematocrit 17.9(L) 35.0 - 47.0 % 06/17/2024 6:38 AM LAWYER [facility] MCV 91 78 - 100 fL 06/17/2024 6:38 AM LAWYER [facility] MCH 32.0 26.5 - 33.0 pg 06/17/2024 6:38 AM LAWYER [facility] MCHC 35.2 31.5 - 36.5 g/dL 06/17/2024 6:38 AM LAWYER [facility] RDW 20.1(H) 10.0 - 15.0 % 06/17/2024 6:38 AM LAWYER [facility] Platelet Count 468(H) 150 - 450 10e3/uL 06/17/2024 6:38 AM LAWYER [facility] Blood VENOUS LINE / Unknown IVAD (Port) / Unknown 06/17/2024 6:16 AM LAWYER 06/17/2024 6:27 AM LAWYER Laquita Kelley MD LAB - BLOOD ORDERABLES Final Re sult [facility] [place] [facility] [address] [facility], [address] [place] [id number] * (ABNORMAL) Basic metabolic panel (06/17/2024 6:16 AM LAWYER) Sodium 134(L) 135 - 145 mmol/L 06/17/2024 6:55 AM LAWYER [facility] Potassium 4.6 3.4 - 5.3 mmol/L 06/17/2024 6:55 AM LAWYER [facility] Chloride 105 98 - 107 mmol/L 06/17/2024 6:55 AM LAWYER [facility] Carbon Dioxide (CO2) 20(L) 22 - 29 mmol/L 06/17/2024 6:55 AM LAWYER [facility] Anion Gap 9 7 - 15 mmol/L 06/17/2024 6:55 AM LAWYER [facility] Urea Nitrogen 16.1 6.0 - 20.0 mg/dL 06/17/2024 6:55 AM LAWYER [facility] Creatinine 0.90 0.51 - 0.95 mg/dL 06/17/2024 6:55 AM LAWYER [facility] GFR Estimate 88 >60 mL/min/1.7 3m2 06/17/2024 6:55 AM LAWYER [facility] Comment:eGFR calculated usin g 2020 CKD-EPI equation. Calcium 8.4(L) 8.8 - 10.4 mg/dL 06/17/2024 6:55 AM LAWYER [facility] Glucose 95 70 - 99 mg/dL 06/17/2024 6:55 AM LAWYER [facility] Blood VENOUS LINE / Unknown IVAD (Port) / Unknown 06/17/2024 6:16 AM LAWYER 06/17/2024 6:27 AM LAWYER Laquita Kelley MD LAB - BLOOD ORDERABLES Final Re sult [facility] [place] [facility] [address] [facility], [address] * Troponin T, High Sensitivity (06/16/2024 9:33 PM LAWYER) [facility] Troponin T, High Sensitivity 8 <=14 ng/L 06/16/2024 10:13 PM LAWYER [facility] Comment: Either a High Sensitivity [...] IVAD (Port) / Unknown 06/16/2024 9:33 PM LAWYER 06/16/2024 9:44 PM LAWYER us Abimael Schofield MD LAB - BLOOD ORDERABLE S Final Result [facility] [place] [facility] [address] [facility], [address] [place], [place] [id number] * Chest XR, PA & LAT (06/16/2024 6:09 PM LAWYER) Anatomical Region Laterality Modality Chest Digital Radiogra phy 06/16/2024 6:09 PM LAWYER Impressions 06/16/2024 6:13 PM LAWYER IMPRESSION: Left chest port catheter in stable position. Stable position of right central venous catheter. No airspace opacity, pleural effusion or pneumothorax. Narrative 06/16/2024 6:13 PM LAWYER EXAM: XR CHEST 2 VIEWS LOCATION: [facility] DATE: 06/16/2024 INDICATION: chest pain COMPARISON: 06/12/2024 Procedure Note Richar Haines MD - 06/16/2024 EXAM: XR CHEST 2 VIEWS LOCATION: [facility] DATE: 06/16/2024 INDICATION: chest pain COMPARISON: 06/12/2024 IMPRESSION: Left chest port catheter in stable position. Stable positionof right central venous catheter. No airspace opacity, pleural effusion orpneumothorax. us Varghesegiulia Schofield MD IMG DIAGNOSTIC IMAGIN G ORDERABLES Final Result * RBC and Platelet Morphology (06/16/2024 5:37 PM LAWYER) RBC Morphology Confirmed RBC Indices 06/16/2024 7:40 PM LAWYER [facility] Platelet Assessment Automated Count Confirmed. Platelet morphology is normal. Automated Count Confirmed. Platelet morphology is normal. 06/16/2024 7:40 PM LAWYER [facility] Blood BLOOD SPECIMEN / Unknown Venipuncture / Unknown 06/16/2024 5:37 PM LAWYER 06/16/2024 5:46 PM LAWYER us Abimael Schofield MD LAB - BLOOD ORDERABLE S Final Result [facility] [place] [facility] [address] [facility] [address], [address] [place] [phone], [facility] * Adult Type and Screen (06/16/2024 5:37 PM LAWYER) Pathologist [facility] ABO/RH(D) A POS 06/16/2024 5:08 PM LAWYER [facility] Antibody Screen Negative Negative 06/16/2024 5:08 PM LAWYER [facility] Comment:Current antibody scr een is negative. Patient has a history of antibody(ies). A delay in compatible red blood cells may occur. SPECIMEN EXPIRATION DATE [id number] 06/16/2024 5:08 PM LAWYER [facility] Blood BLOOD SPECIMEN / Unknown Venipuncture / Unknown 06/16/2024 5:37 PM LAWYER 06/16/2024 5:46 PM LAWYER us Varghese Cipriano Schofield MD LAB - BLOOD BANK TEST ORDER Final Result BLOOD BANK [address] [place] [address] * (ABNORMAL) CBC with platelets and differential (06/16/2024 5:37 PM LAWYER) [facility] WBC Count 21.0(H) 4.0 - 11.0 10e3/uL 06/16/2024 7:41 PM LAWYER [facility] RBC Count 2.34(L) 3.80 - 5.20 10e6/uL 06/16/2024 7:41 PM LAWYER [facility] Hemoglobin 7.4(L) 11.7 - 15.7 g/dL 06/16/2024 7:41 PM LAWYER [facility] Hematocrit 21.7(L) 35.0 - 47.0 % 06/16/2024 7:41 PM LAWYER [facility] MCV 93 78 - 100 fL 06/16/2024 7:41 PM LAWYER [facility] MCH 31.6 26.5 - 33.0 pg 06/16/2024 7:41 PM LAWYER [facility] MCHC 34.1 31.5 - 36.5 g/dL 06/16/2024 7:41 PM LAWYER [facility] RDW 19.3(H) 10.0 - 15.0 % 06/16/2024 7:41 PM LAWYER [facility] Platelet Count 551(H) 150 - 450 10e3/uL 06/16/2024 7:41 PM LAWYER [facility] % Neutrophils 69 % 06/16/2024 7:41 PM LAWYER [facility] % Lymphocytes 20 % 06/16/2024 7:41 PM LAWYER [facility] % Monocytes 9 % 06/16/2024 7:41 PM LAWYER [facility] % Eosinophils 0 % 06/16/2024 7:41 PM LAWYER [facility] % Basophils 1 % 06/16/2024 7:41 PM LAWYER [facility] % Immature Granulocytes 1 % 06/16/2024 7:41 PM LAWYER [facility] NRBCs per 100 WBC 1(H) <1 /100 025 7:41 PM LAWYER [facility] Absolute Neutrophils 14.5(H) 1.6 - 8.3 10e3/uL 06/16/2024 7:41 PM LAWYER [facility] Absolute Lymphocytes 4.2 0.8 - 5.3 10e3/uL 06/16/2024 7:41 PM LAWYER [facility] Absolute Monocytes 2.0(H) 0.0 - 1.3 10e3/uL 06/16/2024 7:41 PM LAWYER [facility] Absolute Eosinophils 0.0 0.0 - 0.7 10e3/uL 06/16/2024 7:41 PM LAWYER [facility] Absolute Basophils 0.2 0.0 - 0.2 10e3/uL 06/16/2024 7:41 PM LAWYER [facility] Absolute Immature Granulocytes 0.1 <=0.4 10e3/uL 06/16/2024 7:41 PM LAWYER [facility] Absolute NRBCs 0.3 10e3/uL 06/16/2024 7:41 PM LAWYER [facility] Blood BLOOD SPECIMEN / Unknown Venipuncture / Unknown 06/16/2024 5:37 PM LAWYER 06/16/2024 5:46 PM LAWYER us Varghese iCpriano Schofield MD LAB - BLOOD ORDERABLE S Final Result [facility] [place] [facility] [address], [address] [place] [address], [facility] * (ABNORMAL) Prolactin (06/16/2024 5:37 PM LAWYER) Prolactin 55(H) 5 - 23 ng/mL 06/16/2024 6:24 PM LAWYER [facility] Blood BLOOD SPECIMEN / Unknown Venipuncture / Unknown 06/16/2024 5:37 PM LAWYER 06/16/2024 5:46 PM LAWYER us Varghesegiulia Schofield MD LAB - BLOOD ORDERABLE S Final Result [facility] [place] [facility] [address] [facility], [address] * Blood Culture Peripheral Blood (06/16/2024 5:37 PM LAWYER) [facility] Culture No Growth 06/21/2024 6:47 PM LAWYER [facility] Blood BLOOD SPECIMEN / Unknown Venipuncture / Unknown 06/16/2024 5:37 PM LAWYER 06/16/2024 5:47 PM LAWYER us Varghesegiulia Schofield MD LAB - MICRO GENERAL O RDERABLES Final Result [facility] Inf. Diseases Diag. Lab [address] [facility], [address] * Troponin T, High Sensitivity (06/16/2024 5:37 PM LAWYER) [facility] Troponin T, High Sensitivity 6 <=14 ng/L 06/16/2024 6:24 PM LAWYER [facility] Comment: Either a High Sensitivity [...] Unknown Venipuncture / Unknown 06/16/2024 5:37 PM LAWYER 06/16/2024 5:46 PM LAWYER us Varghesegiulia Schofield MD LAB - BLOOD ORDERABLE S Final Result [facility] [place] [facility] [address] [facility], [address] [place] [address] * (ABNORMAL) Comprehensive metabolic panel (06/16/2024 5:37 PM LAWYER) Sodium 135 135 - 145 mmol/L 06/16/2024 6:24 PM LAWYER [facility] Potassium 4.2 3.4 - 5.3 mmol/L 06/16/2024 6:24 PM LAWYER [facility] Carbon Dioxide (CO2) 18(L) 22 - 29 mmol/L 06/16/2024 6:24 PM LAWYER [facility] Anion Gap 14 7 - 15 mmol/L 06/16/2024 6:24 PM LAWYER [facility] Urea Nitrogen 17.3 6.0 - 20.0 mg/dL 06/16/2024 6:24 PM LAWYER [facility] Creatinine 0.92 0.51 - 0.95 mg/dL 06/16/2024 6:24 PM LAWYER [facility] GFR Estimate 85 >60 mL/min/1.7 3m2 06/16/2024 6:24 PM LAWYER [facility] Comment:eGFR calculated us2020 CKD-EPI equation. Calcium 9.5 8.8 - 10.4 mg/dL 06/16/2024 6:24 PM LAWYER [facility] Chloride 103 98 - 107 mmol/L 06/16/2024 6:24 PM LAWYER [facility] Glucose 122(H) 70 - 99 mg/dL 06/16/2024 6:24 PM LAWYER [facility] Alkaline Phosphatase 105 40 - 150 U/L 06/16/2024 6:24 PM LAWYER [facility] AST 49(H) 0 - 45 U/L 06/16/2024 6:24 PM LAWYER [facility] ALT 32 0 - 50 U/L 06/16/2024 6:24 PM LAWYER [facility] Protein Total 8.6(H) 6.4 - 8.3 g/dL 06/16/2024 6:24 PM LAWYER [facility] Albumin 4.6 3.5 - 5.2 g/dL 06/16/2024 6:24 PM LAWYER [facility] Bilirubin Total 2.0(H) <=1.2 mg/dL 06/16/2024 6:24 PM LAWYER [facility] Blood BLOOD SPECIMEN / Unknown Venipuncture / Unknown 06/16/2024 5:37 PM LAWYER 06/16/2024 5:46 PM LAWYER us Varghesegiulia Schofield MD LAB - BLOOD ORDERABLE S Final Result [facility] [place] [facility] [address] [facility], [address] [id number] * EKG 12 lead (06/16/2024 4:55 PM LAWYER) Systolic Blood Pressure mmHg RADIOLOGY RESULTS Diastolic Blood Pressure mmHg RADIOLOGY RESULTS Ventricular Rate 122 BPM RAD IOLOGY RESULTS Atrial Rate 122 BPM RADIOLOG Y RESULTS WI Interval 128 ms RADIOLOG Y RESULTS QRS Duration 74 ms RADIOLO GY RESULTS QT 314 ms RADIOLOGY RESULTS QTc 447 ms RADIOLOGY RESULTS P Haskins 63 degrees RADIOLOGY RESULTS R AXIS 83 degrees RADIOLOGY RESULTS T [place]ins 29 degrees RADIOLOGY RESULTS Interpretation ECG Sinus tachycardia Otherwise normal ECG Unconfirmed report - interpretation of this ECG is computer generated - see medical record for final interpretation Confirmed by - EMERGENCY ROOM, PHYSICIAN ([id number]), publication editor KARLA WILLIAMSON ([id number]) on 06/17/2024 6:56:59 AM RADIOLOGY RESULTS 06/16/2024 4:55 PM LAWYER 06/17/2024 6:56 AM LAWYER us Abimael Schofield MD ECG ORDERABLES Edite [...] Oral, 2 TIMES DAILY, First dose on Wed06/17/24 at 1230, For 2 days, Indications: pneumoniaIndications:pneumonia $Given 06/18/2024 8:40 PM LAWYER 200 mg $Given 06/18/2024 12:05 PM LAWYER 200 mg $Given 06/17/2024 9:25 PM LAWYER 200 mg diclofenac (VOLTAREN) 1 % topical gel 2 g 2 g, Topical, 4 TIMES DAILY, First dose on Wed06/17/24 at 1400, Apply to areas of pain. Use supplied dosing card to measure dose. diphenhydrAMINE (BENADRYL) capsule 25 mg 25 mg, Oral, EVERY 6 HOURS PRN, itching, Starting on Wed06/16/24 at 1956 $Given 06/19/2024 12:46 PM LAWYER 25 mg diphenhydrAMINE (BENADRYL) injection 25 mg 25 mg, Intravenous, EVERY 6 HOURS PRN, itching, Starting on Wed06/16/24 at 1956 $Given 06/20/2024 8:36 AM LAWYER 25 mg $Given 06/20/2024 2:08 AM LAWYER 25 mg $Given 06/19/2024 8:21 PM LAWYER 25 mg enoxaparin ANTICOAGULANT (LOVENOX) injection 40 mg 40 mg, Subcutaneous, EVERY 24 HOURS, First dose on Wed06/16/24 at 2100, Contact provider if platelet count drops by 50% or more after enoxaparin initiation OR if platelet count falls below 50 x 10e3/uL $Given 06/19/2024 8:29 PM LAWYER 40 mg $Given 06/18/2024 8:01 PM LAWYER 40 mg $Given 06/17/2024 9:32 PM LAWYER 40 mg FLUoxetine (PROzac) capsule 10 mg 10 mg, Oral, DAILY, First dose on Wed06/17/24 at 0800 $Given 06/20/2024 7:54 AM LAWYER 10 mg $Given 06/19/2024 8:54 AM LAWYER 10 mg $Given 06/18/2024 9:54 AM LAWYER 10 mg folic acid (FOLVITE) tablet 1 mg 1 mg, Oral, DAILY, First dose on Wed06/17/24 at 0800 $Given 06/20/2024 7:51 AM LAWYER 1 mg $Given 06/19/2024 8:54 AM LAWYER 1 mg $Given 06/18/2024 8:09 AM LAWYER 1 mg heparin lock flush 10 unit/mL [...] each port lumen $Given 06/20/2024 10:55 AM LAWYER 5 mLs hydromorphone (DILAUDID) injection 2 mg 2 mg, Intravenous, EVERY 1 HOUR PRN, moderate pain, Starting on Wed06/16/24 at 1708, For 3 doses $Given 06/16/2024 8:20 PM LAWYER 2 mg $Given 06/16/2024 5:42 PM LAWYER 2 mg hydromorphone (DILAUDID) injection 2 mg 2 mg, Intravenous, EVERY 3 HOURS, First dose on Wed06/16/24 at 2100, May use concomitant with non-opioid analgesics. $Given 06/16/2024 9:59 PM LAWYER 2 mg hydromorphone (DILAUDID) injection 2 mg 2 mg, Intravenous, EVERY 2 HOURS, First dose (after last modification) on 06/17/24 at 0000, May use concomitant with non-opioid analgesics. $Given 06/20/2024 9:53 AM LAWYER 2 mg $Given 06/20/2024 7:49 AM LAWYER 2 mg $Given 06/20/2024 5:51 AM LAWYER 2 mg hydroxyurea (HYDREA) capsule 1,000 mg 1,000 mg, Oral, 2 TIMES DAILY, First dose on Wed06/16/24 at 2100, Indications: Sickle cell anemia, Do not crush May require hepatic and/or renal dose or frequency adjustments. See reference link for guidelines.Indications:Sickle cell anemia $Given 06/20/2024 7:51 AM LAWYER 1,000 mg $Given 06/19/2024 8:13 PM LAWYER 1,000 mg $Given 06/19/2024 8:55 AM LAWYER 1,000 mg lactated ringers infusion at 75 mL/hr, Intravenous, CONTINUOUS, Starting on Wed06/18/24 at 0845, Until Wed06/20/24 at 0815 Rate/Dose Verify 06/20/2024 8:00 AM LAWYER 75 mL/hr $New Bag 06/19/2024 10:38 PM LAWYER 75 mL/hr Rate/Dose Verify 06/19/2024 8:29 PM LAWYER 75 mL/h r Lidocaine (LIDOCARE) 4 % [...] 06/16/24 at 1958 $Given 06/20/2024 2:08 AM LAWYER 4 mg $Given 06/19/2024 8:15 PM LAWYER 4 mg $Given 06/19/2024 12:46 PM LAWYER 4 mg polyethylene glycol (MIRALAX) Packet 17 [...] PRN, constipation, Starting on Wed06/16/24 at 2058, If no bowel movement in 24 hours, [...] each port lumen. $Given 06/20/2024 10:54 AM LAWYER 10 mLs sodium chloride (PF) 0.9% PF flush 3 mL 3 mL, Intracatheter, EVERY 8 HOURS, First dose on Wed06/16/24 at 1710, to lock peripheral IV dormant line $Given 06/20/2024 12:24 AM LAWYER 3 mLs $Given 06/18/2024 6:22 PM LAWYER 3 mLs $Given 06/17/2024 7:34 AM LAWYER 3 mLs sodium chloride (PF) 0.9% PF flush 3 mL 3 mL, Intracatheter, EVERY 1 MIN PRN, line flush, other, to ensure patency or to lock dormant line, Starting on Wed06/16/24 at 1706 sodium chloride (PF) 0.9% PF flush 3 mL 3 mL, Intracatheter, EVERY 8 HOURS, First dose on Wed06/16/24 at 2100, to lock peripheral IV dormant line $Given 06/20/2024 4:41 AM LAWYER 3 mLs $Given 06/19/2024 12:56 PM LAWYER 3 mLs $Given 06/18/2024 12:07 PM LAWYER 3 mLs sodium chloride (PF) 0.9% PF flush 3 mL 3 mL, Intracatheter, EVERY 1 MIN PRN, line flush, other, to ensure patency or to lock dormant line, Starting on Wed06/16/24 at 2058 $Given 06/20/2024 5:5 2 AM LAWYER 3 mLs $Given 06/20/2024 2:59 AM LAWYER 3 mLs $Given 06/20/2024 2:07 AM LAWYER 3 mLs sodium chloride 0.9 % infusion at 75 mL/hr, Intravenous, CONTINUOUS, Starting on Wed06/16/24 at 1710, Until Wed06/18/24 at 0843 Rate/Dose Verify 06/18/2024 8:07 AM LAWYER 75 mL/hr $New Bag 06/17/2024 9:42 PM LAWYER 75 mL/hr $New Bag 06/17/2024 4:05 PM LAWYER 75 mL/hr sodium chloride 0.9% BOLUS 500 mL Intravenous, 500 mL, ONCE, at 500 mL/hr, Administer over 1 Hours, On Wed06/16/24 at 1710, For 1 dose $New Bag 06/16/2024 5:51 PM LAWYER 500 mLs 500 mL/hr documented in this encounter Active and Recently Administered Medications Times are shown in LAWYER. Scheduled Medication Order 06/18/2024 06/19/2024 06/20/2024 cefpodoxime [...] 10 mg, Oral, DAILY, First dose on 06/17/24 at 0800 0954 ($Given - Provider: Tejal Curry RN) 0854 ($Given - Provider: Anitha Cervantes RN) 0754 ($Given - Provider: Divya Reyes RN) folic acid (FOLVITE) tablet 1 mg 1 mg, Oral, DAILY, First dose on Wed06/17/24 at 0800 0809 ($Given - Provider: Tejal Curry RN) 0854 ($Given - Provider: Anitha Cervantes RN) 0751 ($Given - Provider: Divya Ryees RN) heparin lock flush 10 unit/mL injection [...] Zaynab Veliz RN)0409 ($Given - Provider: Amelia Gannon, SOFIA)0559 ($Given - Provider: Amelia Gannon, RN)0809 ($Given - Provider: Tejal Curry RN)1009 [...] Kiki Caal RN)1248 ($Given - Provider: Kiki Caal RN)1427 ($Given - Provider: Kiki Caal RN)1643 ($Given - Provider: Andrea Salinas RN)1830 ($Given - Provider: Kiki Caal RN)2025 ($Given - Provider: Sarai Shrestha RN)2223 ($Given - Provider: Sarai Shrestha RN) 0024 ($Given - Provider: Rene Morocho RN)0259 ($Given - Provider: Rene Morocho RN)0441 ($Given - Provider: Rene Morocho RN)0551 [...] RN) 0855 ($Given - Provider: Anitha Cervantes RN)2013 ($Given - Provider: Sarai Shrestha RN) 0751 [...] IV Infusing)1759 (Not Given - Provider: Kiki Caal, RN - Reason: IV Infusing) 0024 ($Given [...] Caal, SOFIA)1256 (Rate/Dose Verify - Provider: Kiki Caal, SOFIA)202 (Rate/Dose Verify - Provider: Sarai Shrestha RN)2238 ($New Bag - Provider: Sarai Shrestha RN) 0800 (Rate/Dose Verify - Provider: Divya Reyes RN)0900 (Infusion stopped per MD order - Provider: Divya Reyes RN) sodium chloride 0.9 % infusion (CANCELED) at 75 mL/hr, Intravenous, CONTINUOUS, Starting on Wed06/16/24 at 1710, Until 06/18/24 at 0843 0807 (Rate/Dose Verify - Provider: Tejal Curry RN)0929 (Stopped - Provider: Tejal Curry RN - Comment: order dc) PRN Medication Order 06/18/2024 06/19/2024 06/20/2024 calcium carbonate (TUMS) chewable tablet 1,000 mg 1,000 mg, Oral, 4 TIMES DAILY PRN, heartburn, Starting on Wed06/16/24 at 205 diphenhydrAMINE (BENADRYL) capsule 25 mg(Linked Group 1) [...] Gannon RN)1246 ($Given - Provider: Kiki Caal RN)202 (See Alternative - Provider: Sarai Shrestha RN) 0208 (See Alternative - Provider: Rene Morocho RN)0836 (See Alternative - Provider: Divya Reyes RN) diphenhydrAMINE (BENADRYL) injection 25 mg(Linked Group 1) 25 mg, Intravenous, EVERY 6 HOURS PRN, itching, Starting on Wed06/16/24 at 1956 0010 ($Given - Provider: Zaynab Veliz RN)0559 ($Given - Provider: Amelia Gannon RN)1205 ($Given - Provider: Tejal Curry RN)1821 ($Given - Provider: Tejal Curry RN)2359 ($Given - Provider: Amelia Gannon, RN) 0551 ($Given - Provider: Amelia Gannon, RN)1246 (See Alternative - Provider: Kiki Caal, SOFIA)202 ($Given - Provider: Sarai Shrestha, SOFIA) 0208 ($Given - Provider: Rene Morocho, SOFIA)0836 ($Given - Provider: Divya Reyes RN) heparin [...] doses 0615 (Canceled Entry - Provider: Rene Morocho, SOFIA - Comment: financial underwriter used scheudled dose instead of PRN [...] at 1958 0010 ($Given - Provider: Zaynab Veliz, RN)0600 ($Given - Provider: Amelia Gannon, RN)1822 ($Given - Provider: Tejal Curry, SOFIA)2359 ($Given - Provider: Amelia Gannon, RN) 0552 ($Given - Provider: Amelia Gannon, RN)1246 ($Given - Provider: Kiki Caal, RN)2015 ($Given - Provider: Sarai Shrestha, SOFIA) 0208 ($Given - Provider: Rene Morocho RN) [...] PRN, itching, Starting on Wed06/16/24 at 1955 Or diphenhydrAMINE (BENADRYL) injection 25 mgJump to [...] stools. documented in this encounter Care Teams Insurance Analyst Relationship Specialty Start Date End Date No Ref-Primary, Physician PCP - General 03/15/24 06/17/24 Veronica Joseph MD [address] [place] [address] PCP - General Family Medicine 06/18/24 Mor Ramsey Medical Student 04/03/24 Case Samuel MD [address] [place] [address], [address] [place] [address] Assigned Pediatric Specialist Provider 05/18/24 Juhi Benson, RN Specialty Production Laborer Hematology & Oncology 05/29/24 documented as of this encounter
--- OUTSIDE RECORDS SUMMARY | 2024-07-03 20:35 | XMS_ITS | Encounter Summary ---
Author Organization [facility] Address [address] [place] [address]. 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 Gender Identity Not on file Sexual Orientation Not on file documented as of this encounter Plan of Treatment Upcoming Encounters Date Type Department Care Team (Late st Contact Info) Description 07/04/2024 9:00 AM CDT Lab [facility] Cancer [address] [address] Case Samuel MD [address] [place], [place] [address], ROOM [address] [id number] 07/06/2024 8:00 AM CDT Appointment [facility] Advanced Treatment [address] [phone] Case Samuel MD [address] [place], [place] [address], [address] [address] 07/10/2024 11:30 AM CDT Oncology Visit [facility] Cancer [address] [address] Case Samuel MD [address] [place], [place] [address], [address] [id number] documented as of this encounter Goals Goal Patient Goal Type Associated Problems Recent Progress Patient-Stated? Author Pain Management General On track( 025 12:40 PM DESPATCHING AND RECEIVING CLERK) Yes Juhi Benson, RN Note: Goal [...] on filedocumented in this encounter Care Teams Information Systems Planner Relationship Specialty Start Date End Date Veronica Joseph MD [address] [place] [address] PCP - General Family Medicine 06/18/24 Mor Ramsey Medical Student 04/03/24 Case Samuel MD [address] [place] [address], [address] [place] [address] Assigned Pediatric Specialist Provider 05/18/24 Juhi Benson, RN Specialty Campground Hand Hematology & Oncology 05/29/24 documented as of this encounter
--- OUTSIDE RECORDS SUMMARY | 2024-07-03 20:35 | XMS_ITS | Encounter Summary ---
Author Organization [facility] Address [address] [place] [address]. [place] [address] Care Team Providers Care Coach Driver Name Role Phone No Ref-Primary, Physician Primary Care Provider Mor Ramsey Unavailable Unavailable Case Samuel MD Unavailable [phone] Juhi Benson RN Unavailable Unavailable Encounter Details [...] file Legal Sex Female 8:25 AM RN CAMP Gender Identity Not on file Sexual Orientation Not on file documented as of this encounter Plan of Treatment Upcoming Encounters Date Type Department Care Team (Late st Contact Info) Description 07/04/2024 9:00 AM CDT Lab [facility] Cancer [address] [address] Case Samuel MD [address] [place], [place] [address], [address] [id number] 07/06/2024 8:00 AM CDT Appointment [facility] Advanced Treatment [address] [phone] Case Samuel MD [address] [place], [place] [address], [address] [id number] 07/10/2024 11:30 AM CDT Oncology Visit [facility] Cancer [address] [address] Case Samuel MD [address] [place], [place] [address], [address] [id number] documented as of this encounter Goals Goal Patient Goal Type Associated Problems Recent Progress Patient-Stated? Author Pain Management General On track( 025 12:40 PM RN CAMP) Yes Juhi Benson, RN Note: Goal Statement: [...] on filedocumented in this encounter Care Teams Coach Driver Relationship Specialty Start Date End Date No Ref-Primary, Physician PCP - General 03/15/24 06/17/24 Mor Ramsey Medical Student 04/03/24 Case Samuel MD [address] [place] [address], [address] [place] [address] Assigned Pediatric Specialist Provider 05/18/24 Juhi Benson, RN Specialty Casework Manager Hematology & Oncology 05/29/24 documented as of this encounter
--- OUTSIDE RECORDS SUMMARY | 2024-07-03 20:35 | XMS_ITS ---
Author Organization [facility] Address [address] [place] [address] Care Team Providers Care Yard Demurrage Clerk Name Role Phone Roxy Mor Unavailable Unavailable Case Samuel MD Unavailable [phone] Juhi Benson RN Unavailable Unavailable Veronica Joseph MD Primary Care Provider [phone] Transitional Care Management Status:Closed (Closed) Start date:06/16/2024 Enrollment date:06/16/2024 End date:06/30/2024 Close reason:Goals met Continued Care and Services Coordination
--- OUTSIDE RECORDS SUMMARY | 2024-07-03 20:36 | XMS_ITS | Encounter Summary ---
Author Organization [facility] Address [address] [place] [id number] Care Team Providers Care Library Specialist Name Role Phone RoxyElvirac Unavailable Unavailable Case Samuel MD Unavailable [phone] Juhi Benson RN Unavailable Unavailable Veronica Joseph MD Primary Care Provider [phone] Reason for Visit * Reason Comments Sickle Cell Pain Crisis Pt reports pain in her back and b/l lower extremities. Encounter Details Date Type Department Care Team (Late st Contact Info) Description 06/24/2024 9:28 AM [employer] - 06/24/2024 1:05 PM [employer] Emergency [facility]ly [facility] Emergency Department [address] [place] [phone] Richar Mahajan MD [address] [place] [address] [phone] Sickle cell disease with crisis (H) Discharge [...] file Legal Sex Female 8:25 AM [employer]PER[employer] Gender Identity Not on file Sexual Orientation Not on file documented as of this encounter Last Filed Vital Signs Vital Sign Reading Time Taken Comments Blood Pressure 111/67 06/24/2024 11:56 AM [employer] Pulse 101 06/24/2024 12:11 PM [employer] Temperature 36.9 C (98.4 F) 06/24/2024 9:26 AM [employer] Respiratory Rate 16 06/24/2024 9:26 AM [employer] Oxygen Saturation 100% 06/24/2024 12:11 PM [employer] Inhaled Oxygen Concentration - - Weight 52.2 kg (115 lb) 06/24/2024 9:26 AM [employer] Height 154.9 cm (5' 1) 06/24/2024 9:26 AM [employer] Body Mass Index 21.73 06/24/2024 9:26 AM [employer] documented in this encounter Discharge Instructions * Discharge Instructions* Richar Mahajan MD - 06/24/2024 12:57 PM [employer] Home. Continue home care. Follow up with [...] Negative Ketones Urine Negative Negative mg/dL Specific [place]verse Urine 1.009 1.003 - 1.035 Blood Urine [...] Status --------- ------ CBC with platelets and d...[[id number]] Abnormal Final result Please view results for these tests on the individual orders. [employer] * Attachments The following attachments cannot be [...] 05/01/2024 naloxone (NARCAN) 4 MG/0.1ML nasal spray [place] 1 spray (4 mg) into one nostril [...] extremities. Triage Assessment (Adult) Row Name 06/24/24 1121 Triage Assessment Airway WDL WDL Respiratory WDL Respiratory WDL WDL Skin Circulation/Temperature WDL Skin Circulation/Temperature WDL WDL Cardiac WDL Cardiac WDL WDL Peripheral/Neurovascular WDL Peripheral Neurovascular WDL WDL Cognitive/Neuro/Behavioral WDL Cognitive/Neuro/Behavioral WDL WDL [facility] * Richar Mahajan MD - 06/24/2024 9:16 AM CST Images from the original note were not included. [facility] ([facility]) 06/24/24 ED PROVIDER NOTE History [...] Course, Procedures, & Data Records reviewed in [facility] as noted refer to HPI also care [...] Negative Ketones Urine Negative Negative mg/dL Specific [place] Urine 1.009 1.003 - 1.035 Blood Urine [...] Status --------- ------ CBC with platelets and d...[[id number]] Abnormal Final result Please view results for [...] Bilirubin Urine Negative Ketones Urine Negative Specific [place] Urine 1.009 Blood Urine Negative pH Urine [...] Haines, am serving as a trained medical records specialist to document services personally performed by Richar Mahajan MD based on the provider's statements to me on June 24, 2024. This document has been checked and approved by the attending provider. I, Richar Mahajan MD, was physically present and have reviewed and verified the accuracy of thisnote documented by Thelma Haines, medical records specialist. Richar Mahajan MD [facility] EMERGENCY DEPARTMENT 06/24/2024 This note was created at least in part by the use of [employer] voice dictation system. Inadvertent typographical errors may still exist. Richar Mahajan MD. Patient evaluated in the emergency department during the COVID-19 pandemic period. Careful attention to patients safety was addressed throughout the evaluation. Evaluation and treatment management was initiated with disposition made efficiently and appropriate as possible to minimize any risk of potential exposure to patient during this evaluation. Richar Mahajan MD 06/24/242108 [facility] documented in this encounter Plan of Treatment Upcoming Encounters Date Type Department Care Team (Late st Contact Info) Description 07/04/2024 9:00 AM CDT Lab [facility] Cancer [address] [phone] Case Samuel MD [address] [place] [address], [address] [place] [id number] 07/06/2024 8:00 AM CDT Appointment [facility] [address] [phone] Case Samuel MD [address] [place] [address], [address] [place], [place] [address] 07/10/2024 11:30 AM CDT Oncology Visit [address] [phone] Case Samuel MD [address] [place], [place] [id number], ROOM [address] [phone] documented as of this encounter Goals Goal Patient Goal Type Associated Problems Recent Progress Patient-Stated? Author Pain Management General On track( 025 12:40 PM [employer]) Yes Juhi Benson, SOFIA Note: Goal Statement: [...] REFLEX TO CULTURE STAT 06/24/2024 10:15 AM [employer] CBC WITH PLATELETS AND DIFFERENTIAL STAT 06/24/2024 10:11 AM [employer] CBC WITH PLATELETS & DIFFERENTIAL STAT 06/24/2024 10:11 AM [employer] RETICULOCYTE COUNT STAT 06/24/2024 10 :11 AM [employer]MENT INR STAT 06/24/2024 10:11 AM [employer]PARTMENT PARTIAL THROMBOPLASTIN TIME STAT 06/24/2024 10:11 AM [employer]MENT MAGNESIUM STAT 06/24/2024 10:11 AM [employer]MENT HCG QUALITATIVE STAT 06/24/2024 10:11 AM [employer]MENT COMPREHENSIVE METABOLIC PANEL STAT 06/24/2024 10:11 AM [employer] documented in this encounter Results * (ABNORMAL) UA with Microscopic reflex to Culture (06/24/2024 10:15 AM [employer]MENT) Color Urine Light Yellow Colorless, Straw, Light Yellow, Yellow 06/24/2024 10:25 AM [employer]MENT [facility] Appearance Urine Clear Clear 06/25/19 10:25 AM [employer] Glucose Urine Negative Negative mg/dL 06/24/2024 10:25 AM [employer] Bilirubin Urine Negative Negative 10:25 AM [employer]ING DE[employer]MENT [facility] Ketones Urine Negative Negative mg/dL 06/24/2024 10:25 AM [employer]MENT [facility] Specific [place] Urine 1.009 1.003 - 1.035 06/24/2024 10:25 AM [employer]MENT [facility] Blood Urine Negative Negative 06/24/2024 10:25 AM [employer] pH Urine 7.5(H) 5.0 - 7.0 06/24/2024 10:25 AM [employer] [facility] Protein Albumin Urine Negative Negative mg/dL 06/24/2024 10:25 AM [employer] Urobilinogen Urine Normal Normal, 2.0 mg/dL 06/24/2024 10:25 AM [employer] DEPARTMENT [facility] Nitrite Urine Negative Negative 06/24/2024 10:25 AM [employer] Leukocyte Esterase Urine Negative Negative 06/24/2024 10:25 AM [employer]PARTMENT [facility] RBC Urine <1 <=2 /HPF 06/24/2024 10:25 AM [employer]PARTMENT [facility] WBC Urine <1 <=5 /HPF 06/24/2024 10:25 AM [employer] [facility] Squamous Epithelials Urine 11(H) <=1 /HPF 06/24/2024 10:25 AM [employer]PARTMENT [facility] Hyaline Casts Urine 1 <=2 /LPF 06/24/2024 10:25 AM [employer]MENT [facility] Urine MID-STREAM URINE SPECIMEN / Unknown Non-blood Collection / Unknown 06/24/2024 10:15 AM [employer] 06/24/2024 10:20 AM [employer] Narrative [facility] - 06/24/2024 10:25 AM [employer] Urine Culture not indicated us Richar Mahajan MD LAB - URINE ORDERABLES Liss l Result [facility] Core Lab [address] [facility], [address] [place] [phone] * (ABNORMAL) CBC with platelets and differential (06/24/2024 10:11 AM [employer]) WBC Count 7.8 4.0 - 11.0 10e3/uL 06/24/2024 10:28 AM [employer] [employer] [facility] RBC Count 2.49(L) 3.80 - 5.20 10e6/uL 06/24/2024 10:28 AM [employer] [facility] Hemoglobin 7.9(L) 11.7 - 15.7 g/dL 06/24/2024 10:28 AM [employer] [facility]PARTMENT [facility] Hematocrit 24.8(L) 35.0 - 47.0 % 06/24/2024 10:28 AM [employer] [facility]PARTMENT [facility] MCV 100 78 - 100 fL 06/24/2024 10:28 AM [employer] [facility]MENT [facility] MCH 31.7 26.5 - 33.0 pg 06/24/2024 10:28 AM [employer]ING DEPARTMENT [facility] MCHC 31.9 31.5 - 36.5 g/dL 06/24/2024 10:28 AM [employer] DEPARTMENT [facility] RDW 19.0(H) 10.0 - 15.0 % 06/24/2024 10:28 AM [employer] Platelet Count 482(H) 150 - 450 10e3/uL 06/24/2024 10:28 AM [employer] DEPARTMENT [facility] % Neutrophils 61 % 06/24/2024 10:28 AM [employer]ING DEPARTMENT [facility] % Lymphocytes 26 % 06/24/2024 10:28 AM [employer]PER[employer]ING DEPARTMENT [facility] % Monocytes 9 % 06/24/2024 10:28 AM [employer]ING DEPARTMENT [facility] % Eosinophils 1 % 06/24/2024 10:28 AM [employer]ING DEPARTMENT [facility] % Basophils 2 % 06/24/2024 10:28 AM [employer]PARTMENT [facility] % Immature Granulocytes 1 % 06/24/2024 10:28 AM [employer] [facility] NRBCs per 100 WBC 5(H) <1 /100 025 10:28 AM [employer]ING DEPARTMENT [facility] Absolute Neutrophils 4.8 1.6 - 8.3 10e3/uL 06/24/2024 10:28 AM [employer]ING DEPARTMENT [facility] Absolute Lymphocytes 2.1 0.8 - 5.3 10e3/uL 06/24/2024 10:28 AM [employer]ING DEPARTMENT [facility] Absolute Monocytes 0.7 0.0 - 1.3 10e3/uL 06/24/2024 10:28 AM [employer]ING DEPARTMENT [facility] Absolute Eosinophils 0.1 0.0 - 0.7 10e3/uL 06/24/2024 10:28 AM [employer]ING DEPARTMENT [facility] Absolute Basophils 0.1 0.0 - 0.2 10e3/uL 06/24/2024 10:28 AM [employer]ING DEPARTMENT [facility] Absolute Immature Granulocytes 0.1 <=0.4 10e3/uL 06/24/2024 10:28 AM [employer] DEPARTMENT [facility] Absolute NRBCs 0.4 10e3/uL 06/24/2024 10:28 AM [employer]PARTMENT [facility] Blood BLOOD SPECIMEN / Unknown Venipuncture / Unknown 06/24/2024 10:11 AM [employer] 06/24/2024 10:22 AM [employer] Richar Mahajan MD LAB - BLOOD ORDERABLES Liss l Result [facility] Core Lab [address] [facility], [address] * (ABNORMAL) Reticulocyte count (06/24/2024 10:11 AM [employer]PARTMENT) % Reticulocyte 11.2(H) 0.5 - 2.0 % 06/24/2024 10:28 AM [facility] [employer] [facility] Absolute Reticulocyte 0.280(H) 0.025 - 0.095 10e6/uL 06/24/2024 10:28 AM [employer] [employer] [facility]MENT [facility] Blood BLOOD SPECIMEN / Unknown Venipuncture / Unknown 06/24/2024 10:11 AM [employer] 06/24/2024 10:22 AM [employer]MENT Richar Mahajan MD LAB - BLOOD ORDERABLES Liss l Result Performing Organization Address City/[facility] Co de Phone Number [facility] Core Lab [address] [facility], Room [address] [place] [address] * HCG qualitative Blood (06/24/2024 10:11 AM SUPER[employer]ING DEPARTMENT) Pathologist [facility] hCG Serum Qualitative Negative Negative JARET 06/24/2024 10:33 AM [employer]PER[employer]ING [facility]PARTMENT [facility] Comment:This test is for scr eening purposes. Results should be interpreted along with the clinical picture. Confirmation testing is available if warranted by ordering [id number], HCG Quantitative . Blood BLOOD SPECIMEN / Unknown Venipuncture / Unknown 06/24/2024 10:11 AM [employer] 06/24/2024 10:20 AM [employer] Richar Mahajan MD LAB - BLOOD ORDERABLES Liss l Result [facility] Lab [address] [facility], [address] * Magnesium (06/24/2024 10:11 AM SUPER[employer] DEPARTMENT) Pathologist [facility] Magnesium 2.1 1.7 - 2.3 mg/dL 06/24/2024 10:51 AM [employer] [facility]PARTMENT [facility] Blood BLOOD SPECIMEN / Unknown Venipuncture / Unknown 06/24/2024 10:11 AM [employer] 06/24/2024 10:21 AM [employer]MENT us Richar Mahajan MD LAB - BLOOD ORDERABLES Liss l Result [facility] Core Lab [address] [facility], [address] * (ABNORMAL) Comprehensive metabolic panel (06/24/2024 10:11 AM [employer] DEPARTMENT) [facility] Sodium 138 135 - 145 mmol/L 06/24/2024 10:51 AM [facility]PARTMENT [facility] Potassium 4.3 3.4 - 5.3 mmol/L 06/24/2024 10:51 AM [facility] [employer]PARTMENT [facility] Carbon Dioxide (CO2) 20(L) 22 - 29 mmol/L 06/24/2024 10:51 AM [facility] [employer] [facility] Anion Gap 10 7 - 15 mmol/L 06/24/2024 10:51 AM [facility] [employer] [facility] Urea Nitrogen 9.9 6.0 - 20.0 mg/dL 06/24/2024 10:51 AM [facility] Creatinine 0.62 0.51 - 0.95 mg/dL 06/24/2024 10:51 AM [facility] [employer] [facility] GFR Estimate >90 >60 mL/min/1.7 3m2 06/24/2024 10:51 AM [facility] [employer] [facility]PART[facility] Comment:eGFR calculated us2020 CKD-EPI equation. Calcium 8.7(L) 8.8 - 10.4 mg/dL 06/24/2024 10:51 AM [facility] [employer] [facility] Chloride 108(H) 98 - 107 mmol/L 06/24/2024 10:51 AM [employer] [facility] Glucose 98 70 - 99 mg/dL 06/24/2024 10:51 AM [facility] [employer] [facility] Alkaline Phosphatase 119 40 - 150 U/L 06/24/2024 10:51 AM [facility] [employer] [facility] AST 57(H) 0 - 45 U/L 06/24/2024 10:51 AM [facility] [employer] ALT 53(H) 0 - 50 U/L 06/24/2024 10:51 AM [facility] [employer] [facility] Protein Total 7.4 6.4 - 8.3 g/dL 06/24/2024 10:51 AM [facility] [employer] Albumin 4.0 3.5 - 5.2 g/dL 06/24/2024 10:51 AM [facility] [employer] Bilirubin Total 1.1 <=1.2 mg/dL 06/24/2024 10:51 AM [facility] [facility] Blood BLOOD SPECIMEN / Unknown Venipuncture / Unknown 06/24/2024 10:11 AM [facility] [employer] [facility] 06/24/2024 10:21 AM [facility] [facility] Richar Mahajan MD LAB - BLOOD ORDERABLES Liss l Result [facility] Core Lab [address] [facility], [address] * (ABNORMAL) INR (06/24/2024 10:11 AM [facility] [employer] [facility]) [facility] INR 1.45(H) 0.85 - 1.15 06/24/2024 10:54 AM [facility] [employer] Blood BLOOD SPECIMEN / Unknown Venipuncture / Unknown 06/24/2024 10:11 AM [facility] 06/24/2024 10:21 AM [employer] [employer] Richar Mahajan MD LAB - BLOOD ORDERABLES Liss l Result [facility] Core Lab [address] [facility], [address] * Partial thromboplastin time (06/24/2024 10:11 AM [employer] [employer] DEPARTMENT) Pathologist [facility] aPTT 32 22 - 38 Seconds 06/24/2024 10:55 AM [employer] [employer] DEPARTMENT [facility] Blood BLOOD SPECIMEN / Unknown Venipuncture / Unknown 06/24/2024 10:11 AM [facility] [employer] [facility] 06/24/2024 10:21 AM [employer] Richar Mahajan MD LAB - BLOOD ORDERABLES Liss bola Result [facility] Core Lab [address] [facility], [address] [place] [phone] documented in [...] For 1 dose $Given 06/24/2024 10:20 AM [facility] [facility] 50 mg hydromorphone (DILAUDID) injection 2 mg 2 mg, Intravenous, EVERY 1 HOUR PRN, severe pain, Starting on 06/24/24 at 0933, For 3 doses $Given 06/24/2024 12:41 PM [facility] 2 mg $Given 06/24/2024 11:21 AM [facility] [employer] [facility] 2 mg $Given 06/24/2024 10:19 AM [facility] [employer] [facility] 2 mg lactated ringers BOLUS 1,000 mL Intravenous, 1,000 mL, ONCE, at 500 mL/hr, Administer over 2 Hours, On 06/24/24 at 0935, For 1 dose $New Bag 06/24/2024 10:20 AM [facility] [facility] 1,000 mLs 500 mL/hr lidocaine (LMX4) cream [...] For 1 dose $Given 06/24/2024 10:19 AM [employer] [facility] 8 mg sodium chloride (PF) 0.9% PF flush 3 mL 3 mL, Intracatheter, EVERY 8 HOURS, First dose on 06/24/24 at 0935, to lock peripheral IV dormant line $Given 06/24/2024 10:14 AM [employer] [employer] [facility] 3 mLs sodium chloride (PF) 0.9% PF flush 3 mL 3 mL, Intracatheter, EVERY 1 MIN PRN, line flush, other, to ensure patency or to lock dormant line, Starting on 06/24/24 at 0930 documented in this encounter Active and Recently Administered Medications Times are shown in [facility] [employer] [facility]. Scheduled Medication Order 06/22/2024 06/23/2024 06/24/2024 diphenhydrAMINE [...] 0930 documented in this encounter Care Teams Library Specialist Relationship Specialty Start Date End Date Veronica Joseph MD [address] [place] [address] PCP - General Family Medicine 06/18/24 Mor Ramsey Medical Student 04/03/24 Case Samuel MD [address] [place] [address], [address] [place] [address] Assigned Pediatric Specialist Provider 05/18/24 Juhi Benson, RN Specialty Geophysical Party Chief Hematology & Oncology 05/29/24 documented as of this encounter
--- OUTSIDE RECORDS SUMMARY | 2024-07-03 20:36 | XMS_ITS | Encounter Summary ---
Author Organization [facility] Address [address] [place] [address]. 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 Gender Identity Not on file Sexual Orientation Not on file documented as of this encounter Plan of Treatment Upcoming Encounters Date Type Department Care Team (Late st Contact Info) Description 07/04/2024 9:00 AM CDT Lab [facility] [address] [phone] Case Samuel MD [address] [place], [place] [address], RO[address] [phone] 07/06/2024 8:00 AM CDT Appointment [facility] Advanced Treatment [address] [phone] Case Samuel MD [address] [place] [address], RO[address] [address] 07/10/2024 11:30 AM CDT Oncology Visit [facility] [address] [phone] Case Samuel MD [address] [place] [address], [address] [address] documented as of this encounter Goals Goal Patient Goal Type Associated Problems Recent Progress Patient-Stated? 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
--- OUTSIDE RECORDS SUMMARY | 2024-07-03 20:36 | XMS_ITS | Clinical Summary ---
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: Lizzie Genotype: SS Acute Pain Crisis Treatment: [...] Encounters Date Type Department Care Team Description 07/02/2024 5:47 PM CDT - 07/02/2024 9:37 PM CDT Emergency [facility] Emergency Department [address] [place] [address] Vasiliy Lutz DO Sickle cell pain crisis (H) Discharge Disposition: Home or Self Care 07/02/2024 Travel 07/01/2024 6:18 PM [employer] - 07/01/2024 9:43 PM [employer] Emergency [facility] Emergency Department [address] [place] [phone] Andres Tejada MD Sickle cell pain crisis (H) Discharge Disposition: Home or Self Care 07/01/2024 Travel 06/29/2024 [facility] [address] [phone] Case Samuel MD Refill Request 06/26/2024 1:51 PM [employer]ATEGY [employer]NER - 06/29/2024 11:11 AM [employer]NER Hospital Encounter [facility] Emergency Department [address] [place] [address] Jayden Adhikari MD Pal, Suman, MD Diehl, Matthew, MD Acute pulmonary embolism without acute cor pulmonale, unspecified pulmonary embolism type (H); Sickle cell pain crisis (H) Discharge Disposition: Home or Self Care 06/26/2024 Travel 06/25/2024 9:50 PM [employer]ATEGY PLANNER - 06/26/2024 1:11 AM [employer]NER Emergency [facility] Emergency Department [address] [place] [address] Polly Naylor MD Tschohl, Melissa Ann, MD Sickle cell disease with crisis (H); Chest pain, unspecified type Discharge Disposition: Home or Self Care 06/25/2024 Travel 06/24/2024 9:28 AM [employer]GY [employer]NER - 06/24/2024 1:05 PM [employer]GY [employer]NER Emergency [facility] Emergency Department [address] [place] [address] Richar Mahajan MD Sickle cell disease with crisis (H) Discharge Disposition: Home or Self Care 06/24/2024 Travel 06/23/2024 6:03 PM [employer]ATEGY [employer]NER - 06/23/2024 9:47 PM [employer]GY [employer]NER Emergency [facility] Emergency Department [address] [place] [address] Dayna Crane MD Sickle cell disease with crisis (H) Discharge Disposition: Home or Self Care 06/23/2024 Travel 06/22/2024 5:23 PM [employer]GY [employer]NER - 06/22/2024 10:02 PM [employer]GY [employer]NER Emergency [facility] Emergency Department [address] [place] [address] Lynne Varner MD Sickle cell anemia with crisis (H) Discharge Disposition: Home or Self Care 06/22/2024 Travel 06/16/2024 4:46 PM [employer] STRATEGY PLANNER - 06/20/2024 11:00 AM [facility] Hospital Encounter [facility] 7C Med Surg [address] [place] [address] Abimael Schofield MD Pal, Suman, MD Duffy, Briar, MD Sickle cell pain crisis (H) Discharge Disposition: Home or Self Care 06/16/2024 Travel 06/15/[address] [phone] Case Samuel MD Refill Request 06/12/2024 6:38 PM [employer]ATEGY [employer]NER - 06/15/2024 10:48 AM [employer] Hospital Encounter [facility] Emergency Department [address] [place] [phone] Abdelrahman Goddard MD Beacom, Evan, DO Duffy, Briar, MD 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); Acute chest pain; Sickle cell pain crisis (H); Pneumonia of right lower lobe due to infectious organism Discharge Disposition: Home or Self Care 06/12/2024 Travel 06/11/2024 9:02 PM [employer]ATEGY [employer]NER - 06/12/2024 1:57 AM [employer]GY [employer]NER Emergency [facility] Emergency Room [address] [place] [phone] Iliana Weber MD Sickle cell pain crisis (H) Discharge Disposition: Home or Self Care 06/11/2024 Travel 06/09/2024 11:30 AM [employer]NER Infusion Therapy Visit [facility] [address] [place] [phone] Case Samuel MD Sickle cell pain crisis (H) (Primary Dx) 06/09/2024 Travel 06/07/2024 1:30 PM [employer]NER Infusion Therapy Visit [facility] [address] [phone] Case Samuel MD Fever (Primary Dx); Sickle cell pain crisis (H) 06/07/2024 10:00 AM [employer]ATEGY [employer]NER - 06/07/2024 10:45 AM [employer]NER Emergency [facility] Emergency Room [address] [place] [phone] Bernabe Farley MD Chest pain, unspecified type; Fever, unspecified fever cause; Left against medical advice Discharge Disposition: Home or Self Care 06/07/2024 Travel 06/06/2024 9:41 AM [employer]ATEGY [employer]NER - 06/06/2024 1:29 PM [facility] Emergency [facility] Emergency Room [address] [place] [phone] Marilai Summers MD Sickle cell pain crisis (H) Discharge Disposition: Home or Self Care 06/05/2024 11:41 AM [employer]ATEGY [employer]NER - 06/05/2024 3:28 PM [facility] Emergency [facility] Emergency Room [address] [place] [phone] Stiven Madsen MD Palm, Steven J, MD Sickle cell pain crisis (H) Discharge Disposition: Home or Self Care 06/05/2024 Travel 06/05/2024 [facility] [address] [place] [phone] Case Samuel MD Refill Request 06/03/2024 3:22 PM [employer]ATEGY [employer]NER - 06/03/2024 5:30 PM [facility] Emergency [facility] Emergency Room [address] [place] [phone] Jennifer Bell MD Sickle cell pain crisis (H) Discharge Disposition: Home or Self Care 06/03/2024 Travel 06/01/2024 11:41 PM [employer]GY [employer]NER - 06/02/2024 2:35 AM [facility] Emergency [facility] Emergency Room [address] [place] [phone] Noel Pinzon MD Sickle cell pain crisis (H) Discharge Disposition: Home or Self Care 06/01/2024 Travel 05/31/2024 9:56 PM [employer]ATEGY PLANNER - 06/01/2024 12:46 AM [facility] Emergency [facility] Emergency Room [address] [place] [phone] Carley Riggins MD Sickle cell pain crisis (H) Discharge Disposition: Home or Self Care 05/31/2024 Travel 05/30/2024 8:00 AM [employer]NER Infusion Therapy Visit [facility] [address] [phone] Case Samuel MD 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); History of transfusion; Sickle cell pain crisis (H) 05/29/2024 11:30 AM [employer]NER Oncology Visit [facility] [address] [phone] Caes Samuel MD Severe episode of recurrent major depressive disorder, 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); History of transfusion; Sickle cell pain crisis (H); 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) 05/29/2024 Orders Only [facility] [address] [phone] Juhi Benson RN Sickle cell pain crisis (H) (Primary Dx); 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) 05/29/2024 Travel 05/28/2024 11:56 PM [employer]ATEGY [employer]ANNER - 05/29/2024 3:54 AM [employer]NER Emergency [facility] Emergency Room [address] [place] [phone] Lenin Smith MD Sickle cell disease with crisis (H) Discharge Disposition: Home or Self Care 05/28/2024 Travel 05/27/2024 11:58 AM [employer]GY [employer]NER - 05/27/2024 6:07 PM [employer]GY [employer]NER Emergency [facility] Emergency Room [address] [place] [phone] Blas Mcclellan MD Ohl, Marly Leija, DO Sickle cell disease with crisis (H) Discharge Disposition: Home or Self Care 05/27/2024 Travel 05/25/2024 10:53 AM [employer] STRATEGY PLANNER - 05/25/2024 4:00 PM [employer]GY [employer]NER Hospital Encounter [facility] Interventional Radiology [address] [place] [phone] Jaswinder Cooper MD 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) Discharge Disposition: Home or Self Care 05/23/2024 9:03 PM [employer]ATEGY [employer]ANNER - 05/23/2024 11:37 PM [employer]GY [employer]NER Emergency [facility] Emergency Room [address] [place] [phone] Marilia Summers MD Sickle cell pain crisis (H); Leukocytosis, unspecified type; Left-sided chest wall pain Discharge Disposition: Home or Self Care 05/23/2024 Travel 05/22/2024 3:27 PM [employer] AND STRATEGY PL[employer]NER - 05/22/2024 6:55 PM [employer]NER Emergency [facility] Emergency Room [address] [place] [phone] Bernabe Farley MD Sickle cell pain crisis (H) Discharge Disposition: Home or Self Care 05/22/2024 MyC Refill [facility] [address] [place] [phone] Case Samuel MD Refill Request 05/22/2024 Travel 05/22/2024 MyC Medical Advice [facility] Interventional Radiology [address] [place] [phone] Yadi Mahan RN 05/20/2024 7:30 AM [employer]GY [employer]NER - 05/20/2024 11:15 AM [facility] Emergency [facility] Emergency Room [address] [place] [phone] Stiven Madsen MD Sickle cell pain crisis (H) Discharge Disposition: Home or Self Care 05/20/2024 Travel 05/19/2024 2:10 AM [employer]GY [employer]NER - 05/19/2024 6:06 AM [facility] Emergency [facility] Emergency Room [address] [place] [phone] Marilia Summers MD Sickle cell disease with crisis (H) Discharge Disposition: Home or Self Care 05/19/2024 Travel 05/16/2024 9:41 PM [employer] AND STRATEGY PLANNER - 05/17/2024 12:53 AM [employer]GY [employer]NER Emergency [facility] Emergency Room [address] [place] [phone] Guille Davis DO Sickle cell pain crisis (H) Discharge Disposition: Home or Self Care 05/16/2024 Travel 05/14/2024 10:07 PM [employer] STRATEGY PL[employer]NER - 05/15/2024 12:14 AM [facility] Emergency [facility] Emergency Room [address] [place] [phone] Marguerite Ponce PA-C Sickle cell pain crisis (H) Discharge Disposition: Home or Self Care 05/14/2024 Travel 05/13/2024 3:56 PM [employer] STRATEGY PL[employer]NER - 05/13/2024 7:56 PM [facility] Emergency [facility] Emergency Room [address] [place] [phone] Shaheen Unger MD Sickle cell pain crisis (H) Discharge Disposition: Home or Self Care 05/13/2024 Travel 05/08/2024 3:10 PM [employer] AND STRATEGY PLANNER - 05/08/2024 7:54 PM [employer]GY [employer]ANNER Emergency [facility] Emergency Room [address] [place] [phone] Polly Alcaraz MD Sickle cell pain crisis (H) Discharge Disposition: Home or Self Care 05/08/2024 Travel 05/08/2024 [facility] [address] [place] [phone] Case Samuel MD Refill Request 05/06/2024 6:34 PM [employer] STRATEGY PLANNER - 05/06/2024 10:33 PM [facility] Emergency [facility] Emergency Room [address] [place] [phone] Noel Pinzon MD Sickle cell pain crisis (H) Discharge Disposition: Home or Self Care 05/06/2024 Travel 05/05/2024 11:10 AM [employer] AND STRATEGY PLANNER - 05/05/2024 2:25 PM [facility] Emergency [facility] Emergency Room [address] [place] [phone] Star Gifford MD Sickle cell pain crisis (H) Discharge Disposition: Home or Self Care 05/05/2024 Travel 05/02/2024 8:23 AM [employer] STRATEGY PLANNER - 05/02/2024 8:54 AM [employer] AND STRATEGY PLANNER Emergency [facility] Emergency Department [address] [place] [phone] Andres Tejada MD Discharge Disposition: Left Without Being Seen 05/02/2024 Telephone [facility] [address] [facility] [address] [place] [phone] No Ref-Primary, Physician Call to schedule (Ed follow up) 05/02/2024 Travel 05/01/2024 11:00 AM [employer] STRATEGY PLANNER Oncology Visit [facility] [address] [place] [phone] Case Samuel MD History of transfusion (Primary Dx); 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); Gallstones; Avascular necrosis of bone of left hip (H); 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, with sickle cell retinopathy, unspecified laterality, unspecified whether proliferative (H); Sickle cell pain crisis (H) 05/01/2024 Orders Only [facility] [address] [place] [phone] Juhi Benson RN 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) 05/01/2024 Travel 04/28/2024 12:41 AM [employer] STRATEGY PLANNER - 04/28/2024 3:59 AM [employer] STRATEGY PLANNER Emergency [facility] Emergency Room [address] [place] [phone] Sandy Joya MD Sickle cell pain crisis (H) Discharge Disposition: Home or Self Care 04/28/2024 Travel 04/26/2024 11:53 PM [employer] AND STRATEGY PLANNER - 04/27/2024 2:14 AM [employer] AND STRATEGY PLANNER Emergency [facility] Emergency Room [address] [place] [phone] Sandy Joya MD Sickle cell pain crisis (H) Discharge Disposition: Home or Self Care 04/26/2024 Travel 04/19/2024 1:48 AM [employer]IC[employer] AND STRATEGY PLANNER - 04/19/2024 4:28 AM [employer] AND STRATEGY PLANNER Emergency [facility] Emergency Room [address] [place] [phone] Juan Rodriguez MD Sickle cell pain crisis (H); Left hip pain; Nondisplaced articular fracture of head of left femur, initial encounter for closed fracture (H) Discharge Disposition: Home or Self Care 04/19/2024 Travel 04/08/2024 9:38 PM CYBER POLICY AND STRATEGY PLANNER - 04/10/2024 10:16 AM [employer] POL[employer] AND STRATEGY PLANNER Hospital Encounter [facility] [address] [place] [phone] Iliana Weber MD Huynh, Ryan K, MD Raddawi, Kenan, MD Sickle cell pain crisis (H) Discharge Disposition: Home or Self Care 04/08/2024 Travel 04/05/2024 11:32 PM [employer] AND STRATEGY PLANNER - 04/06/2024 3:04 AM [employer] AND STRATEGY PLANNER Emergency [facility] Emergency Room [address] [place] [phone] Guille Davis DO Sickle cell pain crisis [...] on file Legal Sex Female 8:25 AM CYBER POLICY AND STRATEGY PLANNER Gender Identity Not on file Sexual Orientation [...] Mass Index 21.16 07/02/2024 5:44 PM CDT Plan of Treatment Upcoming Encounters Date Type Department Care Team (Late st Contact Info) Description 07/04/2024 9:00 AM CDT Lab [facility] [address] [place] [phone] Case Samuel MD [address] [place] [address], [address] [place], [place] [phone] 07/06/2024 8:00 AM CDT Appointment [facility] [place] [address] [place] [phone] Case Samuel MD [address] [place] [address], [address] [place], [place] [phone] 07/10/2024 11:30 AM CDT Oncology Visit [facility] [address] [place] [phone] Case Samuel MD [address] [place] [address], [address] [place], [place] [phone] Health Maintenance Due Date Last Done Comments [...] 11/20/1999, 07/18/1998, Additional history exists COVID-19 Vaccine ( - 2023-2 5 season) 2023 03/26/2023, 05/21/2021, [...] Management General On track( 025 12:40 PM CYBER POL[employer] AND STRATEGY PLANNER) Yes Juhi Benson RN Note: Goal Statement: [...] medication remaining. Medical Devices Implanted Type Area Dairy Processing Supervisor Device Identifier Shelf Expiration Date Model / Serial / Lot Bard 9.6 Powerflow Apheresis Iv Port-05/25/2024 Implanted:Qty: 1 on 05/25/2024 by Myron Michel MD Port Right: Chest Wall BARD 08/23/2024 [id number] / / [id number] Description:Right chest Wall Apheresis Port 9.6FR (Power) 6frt Smartport-05/25 Implanted:Qty: 1 on 05/25/2024 by Myron Michel MD Port Left: Chest Wall [employer] 09/23/2026 [id number] / / [id number] Description:6FR SL SmartPort (Power - 300psi max) Procedures Procedure Name Priority Date/Time Associated Diagnosis Comments ABO/RH TYPE AND SCREEN STAT 7:03 PM CDT CBC WITH PLATELETS & DIFFERENTIAL STAT 07/02/2024 7:03 PM CDT TYPE AND SCREEN, ADULT STAT 7:03 PM CDT DIFFERENTIAL STAT 07/02/2024 7:03 PM CDT CBC WITH PLATELETS AND DIFFERENTIAL STAT 07/02/2024 7:03 PM CDT COMPREHENSIVE METABOLIC PANEL STAT 07/02/2024 7:03 PM CDT CBC WITH PLATELETS & DIFFERENTIAL STAT 07/01/2024 8:00 PM [employer]BER [employer] STR[employer]GY PLANNER MANUAL DIFFERENTIAL STAT 07/01/2024 8 :00 PM [employer] STRATEGY PLANNER CBC WITH PLATELETS AND DIFFERENTIAL STAT 07/01/2024 8:00 PM [employer] STR[employer]GY PLANNER RETICULOCYTE COUNT STAT 07/01/2024 8: 00 PM [employer] AND STRATEGY PLANNER COMPREHENSIVE METABOLIC PANEL STAT 07/01/2024 8:00 PM [employer] STRATEGY PLANNER CBC WITH PLATELETS & DIFFERENTIAL STAT 06/29/2024 6:05 AM [employer] STR[employer]GY PLANNER EXTRA PURPLE TOP TUBE STAT 06/29/2024 6:05 AM [employer] AND STRATEGY PLANNER EXTRA TUBE STAT 06/29/2024 6:05 AM [employer]BER [employer] AND STRATEGY PLANNER CBC WITH PLATELETS AND DIFFERENTIAL STAT 06/29/2024 6:05 AM [employer] AND STRATEGY PLANNER COMPREHENSIVE METABOLIC PANEL STAT 06/29/2024 6:04 AM [employer] AND STRATEGY PLANNER CBC WITH PLATELETS & DIFFERENTIAL STAT 06/28/2024 6:06 AM [employer] AND STRATEGY PLANNER BILIRUBIN DIRECT Add-On 06/28/2024 6:06 AM [employer] AND STRATEGY PLANNER RBC AND PLATELET MORPHOLOGY STAT 06/28/2024 6:06 AM [employer] AND STRATEGY PLANNER CBC WITH PLATELETS AND DIFFERENTIAL STAT 06/28/2024 6:06 AM [employer] STRATEGY PL[employer]NER RETICULOCYTE COUNT STAT 06/28/2024 6: 06 AM [employer] AND STRATEGY PLANNER LACTATE DEHYDROGENASE STAT 06/28/2024 6:06 AM [employer] AND STRATEGY PLANNER COMPREHENSIVE METABOLIC PANEL STAT 06/28/2024 6:06 AM [employer] STRATEGY PLANNER HEPARIN UNFRACTIONATED ANTI XA LEVEL STAT 06/28/2024 1:57 AM [employer] AND STRATEGY PLANNER HEPARIN UNFRACTIONATED ANTI XA LEVEL STAT 06/27/2024 7:14 PM [employer]BER [employer] AND STRATEGY PLANNER EXTRA GREEN TOP (LITHIUM HEPARIN) TUBE STAT 06/27/2024 5:55 PM [employer] AND STRATEGY PLANNER EXTRA TUBE STAT 06/27/2024 5:55 PM [employer] AND STRATEGY PLANNER ECHO COMPLETE Routine 06/27/2024 2:33 PM [employer] AND STRATEGY PLANNER HEPARIN UNFRACTIONATED ANTI XA LEVEL STAT 06/27/2024 12:39 PM [employer]BER [employer] AND STRATEGY PLANNER US LOWER EXTREMITY VENOUS DUPLEX BILATERAL STAT 06/27/2024 11:21 AM [employer] AND STRATEGY PLANNER INFLUENZA A/B, RSV AND SARS-COV2 PCR STAT 06/27/2024 8:43 AM [employer]BER [employer] AND STRATEGY PLANNER ROUTINE UA WITH MICROSCOPIC REFLEX TO CULTURE STAT 06/27/2024 8:12 AM [employer]BER [employer] AND STRATEGY PLANNER ABO/RH TYPE AND SCREEN Add-On 5:57 AM [employer] AND STRATEGY PLANNER CBC WITH PLATELETS & DIFFERENTIAL Add-On 06/27/2024 5:57 AM [employer] AND STRATEGY PLANNER TYPE AND SCREEN, ADULT Routine 5:57 AM [employer] STRATEGY PLANNER RBC AND PLATELET MORPHOLOGY STAT 06/27/2024 5:57 AM [employer] AND STRATEGY PLANNER CBC WITH PLATELETS AND DIFFERENTIAL Add-On 06/27/2024 5:57 AM [employer] AND STRATEGY PLANNER RETICULOCYTE COUNT Add-On 06/27/2024 5: 57 AM [employer] AND STRATEGY PLANNER HEPATIC FUNCTION PANEL Add-On 5:57 AM [employer] AND STRATEGY PLANNER CBC WITH PLATELETS STAT 06/27/2024 5: 57 AM [employer] AND STRATEGY PLANNER BASIC METABOLIC PANEL STAT 06/27/2024 5:57 AM [employer] AND STRATEGY PLANNER HEPARIN UNFRACTIONATED ANTI XA LEVEL STAT 06/27/2024 5:56 AM [employer] AND STRATEGY PLANNER HEPARIN UNFRACTIONATED ANTI XA LEVEL STAT 06/26/2024 10:46 PM [employer] STR[employer]GY PL[employer]NER BLOOD CULTURE STAT 06/26/2024 6:46 PM [employer] STR[employer]GY [employer]NER BLOOD CULTURE STAT 06/26/2024 6:46 PM [employer] STRATEGY PLANNER ERYTHROCYTE SEDIMENTATION RATE AUTO STAT 06/26/2024 6:46 PM [employer]GY PL[employer]NER EKG 12-LEAD, TRACING ONLY STAT 06/26/2024 5:19 PM CYBER POLIC[employer] AND [employer]ATE[employer]NER CT CHEST PULMONARY EMBOLISM W CONTRAST STAT 06/26/2024 4:15 PM [employer] STRATEGY PLANNER XR CHEST 2 VIEWS STAT 06/26/2024 3:13 PM [employer] STRATEGY PL[employer]NER ABO/RH TYPE AND SCREEN STAT 2:42 PM [employer] STRATEGY PLANNER CBC WITH PLATELETS & DIFFERENTIAL STAT 06/26/2024 2:42 PM [employer] STRATEGY PLANNER TYPE AND SCREEN, ADULT STAT 2:42 PM [employer] STRATEGY [employer]NER PROCALCITONIN STAT 06/26/2024 2:42 PM [employer] AND STRATEGY PLANNER CRP INFLAMMATION Add-On 06/26/2024 2:42 PM [employer] AND STRATEGY PLANNER CBC WITH PLATELETS AND DIFFERENTIAL STAT 06/26/2024 2:42 PM [employer] AND STRATEGY PLANNER TROPONIN T, HIGH SENSITIVITY STAT 06/26/2024 2:42 PM [employer] AND STRATEGY PLANNER D DIMER QUANTITATIVE STAT 06/26/2024 2:42 PM [employer] STRATEGY PLANNER HCG QUALITATIVE STAT 06/26/2024 2:42 PM [employer]GY [employer]NER BASIC METABOLIC PANEL STAT 06/26/2024 2:42 PM [employer] STRATEGY PL[employer]NER XR CHEST 2 VIEWS STAT 06/25/2024 10:35 PM [employer] STRATEGY PLANNER EKG 12-LEAD, TRACING ONLY STAT 06/25/2024 10:19 PM [employer]GY [employer]NER ROUTINE UA WITH MICROSCOPIC REFLEX TO CULTURE STAT 06/25/2024 10:16 PM [employer]ATEGY [employer]ANNER CBC WITH PLATELETS & DIFFERENTIAL STAT 06/25/2024 10:15 PM [employer] AND STRATEGY PLANNER CBC WITH PLATELETS AND DIFFERENTIAL STAT 06/25/2024 10:15 PM [employer] AND STRATEGY PLANNER TROPONIN T, HIGH SENSITIVITY STAT 06/25/2024 10:15 PM [employer] STR[employer]GY [employer]ANNER BASIC METABOLIC PANEL STAT 06/25/2024 10:15 PM [employer] STRATEGY PLANNER ROUTINE UA WITH MICROSCOPIC REFLEX TO CULTURE STAT 06/24/2024 10:15 AM [employer] AND STRATEGY PLANNER CBC WITH PLATELETS & DIFFERENTIAL STAT 06/24/2024 10:11 AM [employer] AND STRATEGY PLANNER CBC WITH PLATELETS AND DIFFERENTIAL STAT 06/24/2024 10:11 AM [employer] STRATEGY PLANNER RETICULOCYTE COUNT STAT 06/24/2024 10:11 AM [employer] AND STRATEGY PLANNER HCG QUALITATIVE STAT 06/24/2024 10:11 AM [employer] AND STRATEGY PLANNER MAGNESIUM STAT 06/24/2024 10:11 AM [employer]GY [employer]ANNER COMPREHENSIVE METABOLIC PANEL STAT 06/24/2024 10:11 AM [employer] AND STRATEGY PLANNER INR STAT 06/24/2024 10:11 AM [employer]BER [employer] AND STRATEGY PLANNER PARTIAL THROMBOPLASTIN TIME STAT 06/24/2024 10:11 AM [employer]BER [employer] AND STRATEGY PLANNER CBC WITH PLATELETS & DIFFERENTIAL STAT 06/23/2024 6:22 PM [employer] STR[employer]GY PLANNER DIFFERENTIAL STAT 06/23/2024 6:22 PM [employer] STR[employer]GY PLANNER CBC WITH PLATELETS AND DIFFERENTIAL STAT 06/23/2024 6:22 PM [employer]BER [employer] AND STRATEGY PLANNER HCG QUALITATIVE STAT 06/23/2024 6:22 PM [employer]BER [employer] AND STRATEGY PLANNER COMPREHENSIVE METABOLIC PANEL STAT 06/23/2024 6:22 PM [employer]BER [employer] AND STRATEGY PLANNER CBC WITH PLATELETS & DIFFERENTIAL STAT 06/22/2024 7:10 PM [employer] STR[employer]GY PLANNER CBC WITH PLATELETS AND DIFFERENTIAL STAT 06/22/2024 7:10 PM [employer]ATEGY PL[employer]NER RETICULOCYTE COUNT STAT 06/22/2024 7: 10 PM [employer] AND STRATEGY PLANNER HCG QUALITATIVE STAT 06/22/2024 7:10 PM [employer] AND STRATEGY PLANNER COMPREHENSIVE METABOLIC PANEL STAT 06/22/2024 7:10 PM [employer] AND STRATEGY [employer]ANNER CBC WITH PLATELETS & DIFFERENTIAL STAT 06/20/2024 5:48 AM [employer] AND STRATEGY PLANNER CBC WITH PLATELETS AND DIFFERENTIAL STAT 06/20/2024 5:48 AM [employer] RETICULOCYTE COUNT Routine 06/20/2024 5: 48 AM [employer] COMPREHENSIVE METABOLIC PANEL Routine 06/20/2024 5:48 AM [employer] LACTATE DEHYDROGENASE Routine 06/20/2024 5:48 AM [employer] CBC WITH PLATELETS & DIFFERENTIAL STAT 06/19/2024 9:30 AM [employer] RBC AND PLATELET MORPHOLOGY STAT 06/19/2024 9:30 AM [employer] CBC WITH PLATELETS AND DIFFERENTIAL STAT 06/19/2024 9:30 AM [employer] RETICULOCYTE COUNT STAT 06/19/2024 9: 30 AM [employer] COMPREHENSIVE METABOLIC PANEL STAT 06/19/2024 9:30 AM [employer] LACTATE DEHYDROGENASE STAT 06/19/2024 9:30 AM [employer] PLATELET COUNT STAT 06/19/2024 12:17 AM [employer] CREATININE STAT 06/19/2024 12:17 AM [employer] CBC WITH PLATELETS & DIFFERENTIAL STAT 06/18/2024 8:24 AM [employer] DIFFERENTIAL STAT 06/18/2024 8:24 AM [employer] CBC WITH PLATELETS AND DIFFERENTIAL STAT 06/18/2024 8:24 AM [employer] RETICULOCYTE COUNT STAT 06/18/2024 8: 24 AM [employer] COMPREHENSIVE METABOLIC PANEL STAT 06/18/2024 8:24 AM [employer] LACTATE DEHYDROGENASE STAT 06/18/2024 8:24 AM [employer] ROUTINE UA WITH MICROSCOPIC REFLEX TO CULTURE STAT 06/17/2024 1:11 PM [employer] TRANSFUSE RED BLOOD CELLS (UNIT) STAT 06/17/2024 10:26 AM [employer] PREPARE RED BLOOD CELLS (UNIT) STAT 06/17/2024 9:12 AM [employer] TRANSFERRIN Add-On 06/17/2024 6:16 AM [employer] IRON AND IRON BINDING CAPACITY Add-On 06/17/2024 6:16 AM [employer] CBC WITH PLATELETS STAT 06/17/2024 6: 16 AM [employer] BASIC METABOLIC PANEL STAT 06/17/2024 6:16 AM [employer] TROPONIN T, HIGH SENSITIVITY STAT 06/16/2024 9:33 PM [employer] XR CHEST 2 VIEWS STAT 06/16/2024 6:09 PM [employer] ABO/RH TYPE AND SCREEN STAT 5:37 PM [employer] CBC WITH PLATELETS & DIFFERENTIAL STAT 06/16/2024 5:37 PM [employer] BLOOD CULTURE STAT 06/16/2024 5:37 PM [employer] TYPE AND SCREEN, ADULT STAT 5:37 PM [employer] RBC AND PLATELET MORPHOLOGY STAT 06/16/2024 5:37 PM [employer] CBC WITH PLATELETS AND DIFFERENTIAL STAT 06/16/2024 5:37 PM [employer] PROLACTIN STAT 06/16/2024 5:37 PM [employer] TROPONIN T, HIGH SENSITIVITY STAT 06/16/2024 5:37 PM [employer] COMPREHENSIVE METABOLIC PANEL STAT 06/16/2024 5:37 PM [employer] EKG 12-LEAD, TRACING ONLY STAT 06/16/2024 4:55 PM [employer] CBC WITH PLATELETS & DIFFERENTIAL STAT 06/15/2024 6:09 AM [employer] CBC WITH PLATELETS AND DIFFERENTIAL STAT 06/15/2024 6:09 AM [employer] BASIC METABOLIC PANEL STAT 06/15/2024 6:09 AM [employer] XR CHEST PORT 1 VIEW STAT 06/14/2024 8:46 AM [employer] CBC WITH PLATELETS STAT 06/14/2024 7: 08 AM [employer] BASIC METABOLIC PANEL STAT 06/14/2024 7:08 AM [employer] CBC WITH PLATELETS STAT 06/13/2024 6: 32 PM [employer] CBC WITH PLATELETS & DIFFERENTIAL STAT 06/13/2024 6:00 AM [employer] RBC AND PLATELET MORPHOLOGY STAT 06/13/2024 6:00 AM [employer] CBC WITH PLATELETS AND DIFFERENTIAL STAT 06/13/2024 6:00 AM [employer] BASIC METABOLIC PANEL STAT 06/13/2024 5:59 AM [employer] RESPIRATORY PANEL PCR STAT 06/12/2024 9:34 PM [employer] BLOOD CULTURE STAT 06/12/2024 8:46 PM [employer] BLOOD CULTURE STAT 06/12/2024 8:46 PM [employer] XR CHEST 2 VIEWS STAT 06/12/2024 7:38 PM [employer] ABO/RH TYPE AND SCREEN Add-On 7:17 PM [employer] CBC WITH PLATELETS & DIFFERENTIAL STAT 06/12/2024 7:17 PM [employer] TYPE AND SCREEN, ADULT Routine 7:17 PM [employer] RBC AND PLATELET MORPHOLOGY STAT 06/12/2024 7:17 PM [employer] CBC WITH PLATELETS AND DIFFERENTIAL STAT 06/12/2024 7:17 PM [employer] BLOOD GAS VENOUS STAT 06/12/2024 7:17 PM [employer] TROPONIN T, HIGH SENSITIVITY STAT 06/12/2024 7:17 PM [employer] BASIC METABOLIC PANEL STAT 06/12/2024 7:17 PM [employer] INR STAT 06/12/2024 7:17 PM [employer] EKG 12-LEAD, TRACING ONLY STAT 06/12/2024 6:37 PM [employer] ECG 12-LEAD WITH MUSE SJN,SJO,WWH STAT 06/11/2024 9:04 PM [employer] CBC WITH PLATELETS & DIFFERENTIAL Routine 06/07/2024 1:15 PM [employer] Sickle cell pain crisis (H) RBC AND PLATELET MORPHOLOGY Routine 06/07/2024 1:15 PM [employer] Sickle cell pain crisis (H) INFLUENZA A/B, RSV AND SARS-COV2 PCR Routine 06/07/2024 1:15 PM [employer] Fever CBC WITH PLATELETS AND DIFFERENTIAL Routine 06/07/2024 1:15 PM [employer] Sickle cell pain crisis (H) BASIC METABOLIC PANEL Routine 06/07/2024 1:15 PM [employer] Sickle cell pain crisis (H) ECG 12-LEAD WITH MUSE SJN,SJO,WWH STAT 06/05/2024 11:40 AM [employer] ECG 12-LEAD WITH MUSE SJN,SJO,WWH STAT 06/03/2024 3:24 PM [employer] CBC WITH PLATELETS & DIFFERENTIAL STAT 05/31/2024 10:21 PM [employer] RBC AND PLATELET MORPHOLOGY STAT 05/31/2024 10:21 PM [employer] CBC WITH PLATELETS AND DIFFERENTIAL STAT 05/31/2024 10:21 PM [employer] BASIC METABOLIC PANEL STAT 05/31/2024 10:21 PM [employer] RETICULOCYTE COUNT STAT 05/31/2024 10:21 PM [employer] TRANSFUSE RED BLOOD CELLS (UNIT) Routine 05/30/2024 8:28 AM [employer] 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) History of transfusion PREPARE RED BLOOD CELLS (UNIT) Routine 05/29/2024 5:12 PM [employer] ABO/RH TYPE AND SCREEN Routine 11:23 AM [employer] History of transfusion CBC WITH PLATELETS & DIFFERENTIAL Routine 05/29/2024 11:23 AM [employer] BILL ONLY- CAPILLARY ELECTROPHORESIS Routine 05/29/2024 11:23 AM [employer] BILL ONLY- SICKLE SOLUBILITY BILL Routine 05/29/2024 11:23 AM [employer] URINE CULTURE Routine 05/29/2024 11:23 AM [employer] TYPE AND SCREEN, ADULT Add-On 11:23 AM [employer] History of transfusion RBC AND PLATELET MORPHOLOGY Routine 05/29/2024 11:23 AM [employer] CBC WITH PLATELETS AND DIFFERENTIAL Routine 05/29/2024 11:23 AM [employer] GENOTYPE RED BLOOD CELL Routine 05/29/2024 11:23 AM [employer] History of transfusion HEMOGLOBIN EVAL REFLEX TO ELP OR RBC SOLUBILITY Routine 05/29/2024 11:23 AM [employer] FERRITIN Routine 05/29/2024 11:23 AM [employer] ROUTINE UA WITH MICROSCOPIC REFLEX TO CULTURE Routine 05/29/2024 11:23 AM [employer] COMPREHENSIVE METABOLIC PANEL Routine 05/29/2024 11:23 AM [employer] RETICULOCYTE COUNT Routine 05/29/2024 11:23 AM [employer] CBC WITH PLATELETS & DIFFERENTIAL STAT 05/29/2024 12:53 AM [employer] MANUAL DIFFERENTIAL STAT 05/29/2024 12:53 AM [employer] CBC WITH PLATELETS AND DIFFERENTIAL STAT 05/29/2024 12:53 AM [employer] RETICULOCYTE COUNT STAT 05/29/2024 12:53 AM [employer] CBC WITH PLATELETS & DIFFERENTIAL STAT 05/27/2024 3:13 PM [employer] MANUAL DIFFERENTIAL STAT 05/27/2024 3 :13 PM [employer] CBC WITH PLATELETS AND DIFFERENTIAL STAT 05/27/2024 3:13 PM [employer] RETICULOCYTE COUNT STAT 05/27/2024 3: 13 PM [employer] XR CHEST 2 VIEWS STAT 05/27/2024 2:57 PM [employer] COMPREHENSIVE METABOLIC PANEL STAT 05/27/2024 2:30 PM [employer] ECG 12-LEAD WITH MUSE SJN,SJO,WWH STAT 05/27/2024 12:12 PM [employer] IR PROCEDURE NOTE Routine 05/25/2024 2:5 4 PM [employer] IR CHEST PORT PLACEMENT > 5 YRS OF AGE Routine: Next available opening 05/25/2024 2:47 PM [employer] 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) IR CHEST PORT PLACEMENT > 5 YRS OF AGE Priority: 1-2 Weeks 05/25/2024 2:47 PM [employer] 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) HCG QUALITATIVE URINE Routine 05/25/2024 12:03 PM [employer] CT CHEST PULMONARY EMBOLISM W CONTRAST STAT 05/23/2024 9:33 PM [employer] N TERMINAL PRO BNP OUTPATIENT STAT 05/23/2024 9:02 PM [employer] TROPONIN T, HIGH SENSITIVITY STAT 05/23/2024 9:02 PM [employer] RETICULOCYTE COUNT STAT 05/23/2024 9: 02 PM [employer] CBC WITH PLATELETS STAT 05/23/2024 9: 02 PM [employer] ECG 12-LEAD WITH MUSE SJN,SJO,WWH STAT 05/23/2024 6:54 PM [employer] XR CHEST 2 VIEWS STAT 05/22/2024 5:19 PM [employer] CBC WITH PLATELETS & DIFFERENTIAL STAT 05/22/2024 3:51 PM [employer] RBC AND PLATELET MORPHOLOGY STAT 05/22/2024 3:51 PM [employer] CBC WITH PLATELETS AND DIFFERENTIAL STAT 05/22/2024 3:51 PM [employer] BASIC METABOLIC PANEL STAT 05/22/2024 3:51 PM [employer] ECG 12-LEAD WITH MUSE SJN,SJO,WWH STAT 05/22/2024 3:14 PM [employer] XR CHEST 2 VIEWS STAT 05/20/2024 9:30 AM [employer] CBC WITH PLATELETS & DIFFERENTIAL STAT 05/20/2024 9:09 AM [employer] RBC AND PLATELET MORPHOLOGY STAT 05/20/2024 9:09 AM [employer] BASIC METABOLIC PANEL STAT 05/20/2024 9:09 AM [employer] EXTRA GREEN TOP (LITHIUM HEPARIN) TUBE STAT 05/20/2024 9:09 AM [employer] EXTRA TUBE STAT 05/20/2024 9:09 AM [employer] CBC WITH PLATELETS AND DIFFERENTIAL STAT 05/20/2024 9:09 AM [employer] RETICULOCYTE COUNT STAT 05/20/2024 9: 09 AM [employer] BASIC METABOLIC PANEL STAT 05/20/2024 8:21 AM [employer] ECG 12-LEAD WITH MUSE SJN,SJO,WWH STAT 05/20/2024 7:36 AM [employer] CBC WITH PLATELETS & DIFFERENTIAL STAT 05/19/2024 3:05 AM [employer] MANUAL DIFFERENTIAL STAT 05/19/2024 3 :05 AM [employer] CBC WITH PLATELETS AND DIFFERENTIAL STAT 05/19/2024 3:05 AM [employer] HCG QUALITATIVE STAT 05/19/2024 3:05 AM [employer] CK TOTAL STAT 05/19/2024 3:05 AM [employer] HEPATIC FUNCTION PANEL STAT 3:05 AM [employer] BASIC METABOLIC PANEL STAT 05/19/2024 3:05 AM [employer] RETICULOCYTE COUNT STAT 05/19/2024 3: 05 AM [employer] CBC WITH PLATELETS & DIFFERENTIAL STAT 05/16/2024 10:17 PM [employer] RBC AND PLATELET MORPHOLOGY STAT 05/16/2024 10:17 PM [employer] CBC WITH PLATELETS AND DIFFERENTIAL STAT 05/16/2024 10:17 PM [employer] BASIC METABOLIC PANEL STAT 05/16/2024 10:17 PM [employer] INFLUENZA A/B, RSV AND SARS-COV2 PCR STAT 05/16/2024 10:00 PM [employer] CBC WITH PLATELETS & DIFFERENTIAL STAT 05/14/2024 10:24 PM [employer] MANUAL DIFFERENTIAL STAT 05/14/2024 10:24 PM [employer] CBC WITH PLATELETS AND DIFFERENTIAL STAT 05/14/2024 10:24 PM [employer] HCG QUALITATIVE STAT 05/14/2024 10:24 PM [employer] TROPONIN T, HIGH SENSITIVITY STAT 05/14/2024 10:24 PM [employer] RETICULOCYTE COUNT STAT 05/14/2024 10:24 PM [employer] HEPATIC FUNCTION PANEL STAT 10:24 PM [employer] BASIC METABOLIC PANEL STAT 05/14/2024 10:24 PM [employer] ECG 12-LEAD WITH MUSE SJN,SJO,WWH STAT 05/14/2024 10:12 PM [employer] EXTRA PURPLE TOP TUBE STAT 05/13/2024 6:17 PM [employer] EXTRA TUBE STAT 05/13/2024 6:17 PM [employer] LACTATE DEHYDROGENASE STAT 05/13/2024 6:16 PM [employer] CBC WITH PLATELETS & DIFFERENTIAL STAT 05/13/2024 4:57 PM [employer] MANUAL DIFFERENTIAL STAT 05/13/2024 4 :57 PM [employer] CBC WITH PLATELETS AND DIFFERENTIAL STAT 05/13/2024 4:57 PM [employer] TROPONIN T, HIGH SENSITIVITY STAT 05/13/2024 4:57 PM [employer] RETICULOCYTE COUNT STAT 05/13/2024 4: 57 PM [employer] HEPATIC FUNCTION PANEL STAT 4:57 PM [employer] BASIC METABOLIC PANEL STAT 05/13/2024 4:57 PM [employer] ECG 12-LEAD WITH MUSE SJN,SJO,WWH STAT 05/13/2024 3:38 PM [employer] INFLUENZA A/B, RSV AND SARS-COV2 PCR STAT 05/08/2024 7:33 PM [employer] XR CHEST 2 VIEWS STAT 05/08/2024 5:27 PM [employer] CBC WITH PLATELETS & DIFFERENTIAL STAT 05/08/2024 4:14 PM [employer] RBC AND PLATELET MORPHOLOGY STAT 05/08/2024 4:14 PM [employer] CBC WITH PLATELETS AND DIFFERENTIAL STAT 05/08/2024 4:14 PM [employer] HCG QUALITATIVE STAT 05/08/2024 4:14 PM [employer] INR STAT 05/08/2024 4:14 PM [employer] TROPONIN T, HIGH SENSITIVITY STAT 05/08/2024 4:14 PM [employer] RETICULOCYTE COUNT STAT 05/08/2024 4: 14 PM [employer] COMPREHENSIVE METABOLIC PANEL STAT 05/08/2024 4:14 PM [employer] ECG 12-LEAD WITH MUSE SJN,SJO,WWH STAT 05/08/2024 3:13 PM [employer] ECG 12-LEAD WITH MUSE SJN,SJO,WWH STAT 05/06/2024 7:51 PM [employer] CBC WITH PLATELETS & DIFFERENTIAL STAT 05/06/2024 7:43 PM [employer] RBC AND PLATELET MORPHOLOGY STAT 05/06/2024 7:43 PM [employer] CBC WITH PLATELETS AND DIFFERENTIAL STAT 05/06/2024 7:43 PM [employer] HEPATIC FUNCTION PANEL STAT 7:43 PM [employer] RETICULOCYTE COUNT STAT 05/06/2024 7: 43 PM [employer] TROPONIN T, HIGH SENSITIVITY STAT 05/06/2024 7:43 PM [employer] BASIC METABOLIC PANEL STAT 05/06/2024 7:43 PM [employer] XR CHEST 2 VIEWS STAT 05/05/2024 12:16 PM [employer] CBC WITH PLATELETS & DIFFERENTIAL STAT 05/05/2024 11:50 AM [employer] RBC AND PLATELET MORPHOLOGY STAT 05/05/2024 11:50 AM [employer] CBC WITH PLATELETS AND DIFFERENTIAL STAT 05/05/2024 11:50 AM [employer] TROPONIN T, HIGH SENSITIVITY STAT 05/05/2024 11:50 AM [employer] RETICULOCYTE COUNT STAT 05/05/2024 11:50 AM [employer] BASIC METABOLIC PANEL STAT 05/05/2024 11:50 AM [employer] ECG 12-LEAD WITH MUSE SJN,SJO,WWH STAT 05/05/2024 11:03 AM [employer] CBC WITH PLATELETS & DIFFERENTIAL STAT 04/28/2024 1:50 AM [employer] VITAMIN D DEFICIENCY SCREENING Add-On 04/28/2024 1:50 AM [employer] Sickle cell pain crisis (H) MANUAL DIFFERENTIAL STAT 04/28/2024 1 :50 AM [employer] CBC WITH PLATELETS AND DIFFERENTIAL STAT 04/28/2024 1:50 AM [employer] RETICULOCYTE COUNT STAT 04/28/2024 1: 50 AM [employer] COMPREHENSIVE METABOLIC PANEL STAT 04/28/2024 1:50 AM [employer] CBC WITH PLATELETS & DIFFERENTIAL STAT 04/27/2024 12:23 AM [employer] RBC AND PLATELET MORPHOLOGY STAT 04/27/2024 12:23 AM [employer] CBC WITH PLATELETS AND DIFFERENTIAL STAT 04/27/2024 12:23 AM [employer] RETICULOCYTE COUNT STAT 04/27/2024 12:23 AM [employer] COMPREHENSIVE METABOLIC PANEL STAT 04/27/2024 12:23 AM [employer] CT PELVIS BONE WO CONTRAST STAT 04/19/2024 3:22 AM [employer] HCG QUALITATIVE URINE STAT 04/19/2024 2:17 AM [employer] ROUTINE UA WITH MICROSCOPIC REFLEX TO CULTURE STAT 04/19/2024 2:16 AM [employer] CBC WITH PLATELETS & DIFFERENTIAL STAT 04/19/2024 2:11 AM [employer] MANUAL DIFFERENTIAL STAT 04/19/2024 2 :11 AM [employer] CBC WITH PLATELETS AND DIFFERENTIAL STAT 04/19/2024 2:11 AM [employer] RETICULOCYTE COUNT STAT 04/19/2024 2: 11 AM [employer] BASIC METABOLIC PANEL STAT 04/19/2024 2:11 AM [employer] CBC WITH PLATELETS & DIFFERENTIAL Routine 04/10/2024 5:35 AM [employer] CBC WITH PLATELETS AND DIFFERENTIAL Routine 04/10/2024 5:35 AM [employer] CBC WITH PLATELETS STAT 04/09/2024 6: 13 AM [employer] BASIC METABOLIC PANEL STAT 04/09/2024 6:13 AM [employer] CBC WITH PLATELETS & DIFFERENTIAL STAT 04/08/2024 10:22 PM [employer] EXTRA RED TOP TUBE STAT 04/08/2024 10:22 PM [employer] EXTRA BLUE TOP TUBE STAT 04/08/2024 10:22 PM [employer] CBC WITH PLATELETS AND DIFFERENTIAL STAT 04/08/2024 10:22 PM [employer] EXTRA TUBE STAT 04/08/2024 10:22 PM [employer] BASIC METABOLIC PANEL STAT 04/08/2024 10:22 PM [employer] RETICULOCYTE COUNT STAT 04/08/2024 10:22 PM [employer] ECG 12-LEAD WITH MUSE SJN,SJO,WWH STAT 04/08/2024 9:45 PM [employer] CT CHEST PULMONARY EMBOLISM W CONTRAST STAT 04/06/2024 2:22 AM [employer] D DIMER QUANTITATIVE STAT 04/06/2024 12:45 AM [employer] TROPONIN T, HIGH SENSITIVITY STAT 04/06/2024 12:45 AM [employer] BASIC METABOLIC PANEL STAT 04/06/2024 12:45 AM [employer] CBC WITH PLATELETS AND DIFFERENTIAL STAT 04/06/2024 12:43 AM [employer] ECG 12-LEAD WITH MUSE SJN,SJO,WWH STAT 04/06/2024 12:41 AM [employer] CBC WITH PLATELETS & DIFFERENTIAL STAT 04/05/2024 11:47 PM [employer] from Last 3 Months Results * (ABNORMAL) CBC with platelets and differential (07/02/2024 7:03 PM CDT) Only the most recent of37 resultswithin the time period is included. Pathologist [facility] [place] WBC Count 10.1 4.0 - 11.0 10e3/uL [...] BLOOD ORDERABLES Fi nal Result [facility] [place] [facility] [address] [facility], [address] [place] [address], [facility] * Adult Type and Screen (07/02/2024 7:03 PM CDT) Only the most recent of6 resultswithin the time period is included. Pathologist [facility] [place] ABO/RH(D) A POS 07/02/2024 6:10 PM CDT [facility] Antibody Screen Negative Negative 07/02/2024 6:10 PM CDT [facility] SPECIMEN EXPIRATION DATE [id number] 07/02/2024 6:10 PM CDT [facility] Blood BLOOD SPECIMEN / Unknown Venipuncture / Unknown 07/02/2024 7:03 PM CDT 07/02/2024 7:13 PM CDT Vasiliy Lutz DO LAB - BLOOD BANK TEST ORD ER Final Result [facility] [address] [place] [address], [facility] * (ABNORMAL) Manual Differential (07/02/2024 7:03 PM CDT) Only the most recent of3 resultswithin the time period is included. % Neutrophils 57 % 07/02/2024 8:00 PM [...] BLOOD ORDERABLES Fi nal Result [facility] [place] [facility] [address] [facility], [address] [place] [id number] [place] * (ABNORMAL) Comprehensive metabolic panel (07/02/2024 7:03 PM CDT) Only the most recent of16 resultswithin the time period is included. Sodium 137 135 - 145 mmol/L 07/02/2024 [...] 7:43 PM CDT [facility] Comment:eGFR calculated 2020 CKD-EPI equation. [...] BLOOD ORDERABLES Fi nal Result [facility] [place] [facility] [address] [facility], [address] [place] [address] [place] * (ABNORMAL) Manual Differential (07/01/2024 8:00 PM [employer]) Only the most recent of8 resultswithin the time period is included. % Neutrophils 63 % JARET 07/01/2024 9:50 PM [employer] [facility] % Lymphocytes 25 % JARET 07/01/2024 9:50 PM [employer] [facility] % Monocytes 8 % JARET 07/01/2024 9:50 PM [employer] [facility] % Eosinophils 0 % JARET 07/01/2024 9:50 PM [employer] [facility] % Basophils 4 % JARET 07/01/2024 9:50 PM [employer] [facility] % Myelocytes 0 % JARET 07/01/2024 9:50 PM [employer] [facility] Absolute Neutrophils 4.9 1.6 - 8.3 10e3/uL JARET 07/01/2024 9:50 PM [employer] [facility] Absolute Lymphocytes 1.9 0.8 - 5.3 10e3/uL JARET 07/01/2024 9:50 PM [employer] [facility] Absolute Monocytes 0.6 0.0 - 1.3 10e3/uL JARET 07/01/2024 9:50 PM [employer] [facility] Absolute Eosinophils 0.0 0.0 - 0.7 10e3/uL JARET 07/01/2024 9:50 PM [employer] [facility] Absolute Basophils 0.3(H) 0.0 - 0.2 10e3/uL JARET 07/01/2024 9:50 PM [employer] [facility] Absolute Myelocytes 0.0 <=0.0 10e3/uL JARET 07/01/2024 9:50 PM [employer] [facility] NRBCs per 100 WBC 17 % JARET 07/01/2024 9:50 PM [employer] [facility] Absolute NRBCs 1.3 10e3/uL JARET 07/01/2024 9:50 PM [employer] [facility] RBC Morphology Confirmed RBC Indices JARET 07/01/2024 9:50 PM [employer] [facility] Platelet Assessment Automated Count Confirmed. Platelet morphology is normal. Automated Count Confirmed. Platelet morphology is normal. JARET 07/01/2024 9:50 PM [employer] [facility] Polychromasia Slight(A) None Seen JARET 07/01/2024 9:50 PM [employer] [facility] Sickle Cells Slight(A) None Seen JARET 07/01/2024 9:50 PM [employer] [facility] Target Cells Slight(A) None Seen JARET 07/01/2024 9:50 PM [employer] [facility] Blood BLOOD SPECIMEN / Unknown Venipuncture / Unknown 07/01/2024 8:00 PM [employer] 07/01/2024 8:07 PM [employer] Narrative [facility] - 07/01/2024 9:50 PM [employer] Differential done on Albumin treated blood due to Smudge Cells. us Andres Tejada MD LAB - BLOOD ORDERABLES Liss l Result LABORATORY [facility] [place] [facility] [address] [facility], [address] * (ABNORMAL) Reticulocyte count (07/01/2024 8:00 PM [employer]) Only the most recent of24 resultswithin the time period is included. % Reticulocyte 7.3(H) 0.5 - 2.0 % 07/01/2024 8:13 PM [employer] [facility] Absolute Reticulocyte 0.159(H) 0.025 - 0.095 10e6/uL 07/01/2024 8:13 PM [employer] [facility]ATORY Blood BLOOD SPECIMEN / Unknown Venipuncture / Unknown 07/01/2024 8:00 PM [employer] 07/01/2024 8:07 PM [employer] Andres Tejada MD LAB - BLOOD ORDERABLES Liss l Result Performing Organization Address [facility]/ZIP Co de Phone Number LABORATORY [facility] [place] [facility] [address] [facility], [address] * Extra Purple Top Tube (06/29/2024 6:05 AM [employer]) Only the most recent of2 resultswithin the time period is included. Hold Specimen JIC 06/29/2024 7:31 AM [employer] LABORATORY Blood ARTERIAL LINE / Unknown IVAD (Port) / Unknown 06/29/2024 6:05 AM [employer] 06/29/2024 6:19 AM [employer] Alex Gillespie MD LAB - BLOOD ORDERABLES Final Re sult LABORATORY [facility] [place] [facility] [address] [facility], [address] * (ABNORMAL) RBC and Platelet Morphology (06/28/2024 6:06 AM [employer]) Only the most recent of16 resultswithin the time period is included. RBC Morphology Confirmed RBC Indices 06/28/2024 7:15 AM [employer] [facility] Platelet Assessment Automated Count Confirmed. Platelet morphology is normal. Automated Count Confirmed. Platelet morphology is normal. 06/28/2024 7:15 AM [employer] [facility] Sickle Cells Slight(A) None Seen 06/28/2024 7:15 AM [employer] [facility] Target Cells Moderate(A) None Seen 06/28/2024 7:15 AM [employer] [facility] Blood VENOUS LINE / Unknown Venipuncture / Unknown 06/28/2024 6:06 AM [employer] 06/28/2024 6:22 AM [employer] Polly Allen MD LAB - BLOOD ORDER SYD Final Result Performing Organization Address City/[facility]/ZIP Co de Phone Number U LABORATORY [facility] Core Lab [address] [facility], [address] * (ABNORMAL) Lactate Dehydrogenase (06/28/2024 6:06 AM [employer]) Only the most recent of5 resultswithin the time period is included. Pathologist [facility] [place] Lactate Dehydrogenase 451(H) 0 - 250 U/L 06/28/2024 6:51 AM [employer] [facility] Blood VENOUS LINE / Unknown Venipuncture / Unknown 06/28/2024 6:06 AM [employer] 06/28/2024 6:22 AM [employer] Polly Allen MD LAB - BLOOD ORDER SYD Final Result U LABORATORY [facility] [place] [facility] [address] [facility], Room [address] * (ABNORMAL) Bilirubin direct (06/28/2024 6:06 AM [employer]) Bilirubin Direct 0.53(H) 0.00 - 0.30 mg/dL 06/28/2024 9:50 AM [employer] [facility] Blood VENOUS LINE / Unknown Venipuncture / Unknown 06/28/2024 6:06 AM [employer] 06/28/2024 6:22 AM [employer] Polly Allen MD LAB - BLOOD ORDER SYD Final Result Performing Organization Address City/[facility] Co de Phone Number LABORATORY [facility] [place] [facility] [address] [facility], [address] [phone] [place] * Heparin Unfractionated Anti Xa Level (06/28/2024 1:57 AM [employer]) Only the most recent of5 resultswithin the time period is included. Anti Xa Unfractionated Heparin 0.45 For Reference Range, See Comment IU/mL 06/28/2024 2:32 AM [employer] [facility] Blood VENOUS LINE / Unknown Venipuncture / Unknown 06/28/2024 1:57 AM [employer] 06/28/2024 2:17 AM [employer]NER Narrative [facility] - 06/28/2024 2:32 AM [employer] Therapeutic Range: UFH: 0.25-0.50 IU/mL for low intensity dosing, 0.30-0.70 IU/mL for high intensity dosing DVT and PE. This test is not validated for other direct factor X inhibitors (e.g. rivaroxaban, apixaban, edoxaban, betrixaban, fondaparinux) and should not be used for monitoring of other medications. Alex Gillespie MD LAB - BLOOD ORDERABLES Final Re sult Performing Organization Address City/[facility]/ZIP Co de Phone Number LABORATORY [facility] [place] [facility] [address] [facility], [address] [phone] [place] * Extra Green Top (Malin Heparin) Tube (06/27/2024 5:55 PM [employer]) Only the most recent of2 resultswithin the time period is included. Hold Specimen JIC 06/27/2024 8:31 PM [employer]NER [facility] Blood STRUCTURE OF RIGHT WRIST REGION / Unknown Venipuncture / Unknown 06/27/2024 5:55 PM [employer]NER 06/27/2024 7:22 PM [employer] us Alex Gillespie MD LAB - BLOOD ORDERABLES Final Re sult [facility] LABORATORY [facility] [place] [facility] [address] [facility], Room [address] [phone] [place] * ECHO COMPLETE (06/27/2024 2:33 PM [employer]) LVEF 55-60% CARDIOLOGY RESULTS Anatomical Region Laterality Modality Echocardiography 06/27/2024 1:58 PM [employer] Narrative 06/27/2024 2:51 PM [employer]NER [id number]^BRITTANEY^[facility] Echocardiography Laboratory [address] [place] [address] Name: LEW HERNÁNDEZ : 1995 Study Date: 06/27/2024 01:58 PM Age: 29 yrs Gender: Female Patient Location: [facility] [place] Reason For Study: Pulmonary Emboli Ordering Physician: [...] Procedure Note Salvador Perea MD - 06/27/2024 [id number]^BRITTANEY^[facility] Echocardiography Laboratory [address] [place] [id number] Name: LEW HERNÁNDEZ : 1995 Study Date: 06/27/2024 01:58 PM Age: 29 yrs Gender: Female Patient Location: [facility] [place] Reason For Study: Pulmonary Emboli Ordering Physician: JERMAINE QUISPE Performed By: Maggy Franks, RDCS BSA: 1.5 m2 Height: 61 in [...] Extremity Venous Duplex Bilateral (06/27/2024 11:21 AM [employer]) Anatomical Region Laterality Modality Vascular, Thigh, Leg Ultrasound Impressions 06/27/2024 11:45 AM [employer] IMPRESSION: No evidence of deep venous thrombosis in either lower extremity. I have personally reviewed the examination and initial interpretation and I agree with the findings. NINOSKA QUAN MD Narrative 06/27/2024 11:45 AM [employer]NER EXAMINATION: DOPPLER VENOUS ULTRASOUND OF BILATERAL LOWER [...] agree with the findings. NINOSKA QUAN MD us Polly Allen MD [facility] US ORDERABLES Final Result * Influenza A/B, RSV and SARS-CoV2 PCR (COVID-19) Nose (06/27/2024 8:43 AM [employer]) Only the most recent of4 resultswithin the time period is included. Influenza A PCR Negative Negative 06/27/2024 10:03 AM [employer]NER [facility] Influenza B PCR Negative Negative 06/27/2024 10:03 AM [employer]NER [facility] RSV PCR Negative Negative 06/27/2024 10:03 AM [employer]NER [facility] SARS CoV2 PCR Negative Negative 06/27/2024 10:03 AM [employer]NER [facility] Comment:NEGATIVE: SARS-CoV-2 (COVID-19) RNA not detected, presumed negative. Swab NASAL STRUCTURE / Unknown Non-blood Collection / Unknown 06/27/2024 8:43 AM [employer]NER 06/27/2024 8:59 AM [employer]NER Narrative [facility] - 06/27/2024 10:03 AM [employer] Testing was performed using the Xpert Xpress CoV2/Flu/RSV Assay on the [employer] GeneXpert Instrument. This test should be ordered [...] management. This test was validated by the [facility]. These laboratories are certified under the Clinical Laboratory Improvement Amendments of 1988 (CLIA-88) as qualified to perfom high complexity laboratory testing. Polly Allen MD LAB - MICRO GENER AL ORDERABLES Final Result [facility]ORAT[facility] Inf. Diseases Diag. Lab [address] [facility], [address] [place] [address], [place] * (ABNORMAL) UA with Microscopic reflex to Culture (06/27/2024 8:12 AM [employer]NER) Only the most recent of6 resultswithin the time period is included. Color Urine Light Yellow Colorless, Straw, Light Yellow, Yellow 06/27/2024 8:29 AM [employer]NER [facility] Appearance Urine Clear Clear 06/28/19 8:29 AM [employer]NER [facility] Glucose Urine Negative Negative mg/dL 06/27/2024 8:29 AM [employer]NER [facility] Bilirubin Urine Negative Negative 8:29 AM [employer]NER [facility] Ketones Urine Negative Negative mg/dL 06/27/2024 8:29 AM [employer]NER [facility] Specific [employer] Urine 1.011 1.003 - 1.035 06/27/2024 8:29 AM [employer]NER [facility] Blood Urine Negative Negative 06/27/2024 8:29 AM [employer]NER [facility] pH Urine 7.0 5.0 - 7.0 06/27/2024 8:29 AM [employer]NER [facility] Protein Albumin Urine Negative Negative mg/dL 06/27/2024 8:29 AM [employer]NER [facility] Urobilinogen Urine Normal Normal, 2.0 mg/dL 06/27/2024 8:29 AM [employer]NER [facility] Nitrite Urine Negative Negative 06/27/2024 8:29 AM [employer]NER [facility] Leukocyte Esterase Urine Negative Negative 06/27/2024 8:29 AM [employer]NER [facility] RBC Urine 0 <=2 /HPF 06/27/2024 8:29 AM [employer]NER [facility] WBC Urine 0 <=5 /HPF 06/27/2024 8:29 AM [employer]NER [facility] Squamous Epithelials Urine 2(H) <=1 /HPF 06/27/2024 8:29 AM [employer]NER [facility] Urine URINE SPECIMEN OBTAINED BY CLEAN CATCH PROCEDURE / Unknown Non-blood Collection / Unknown 06/27/2024 8:12 AM [employer]NER 06/27/2024 8:18 AM [employer]NER Narrative [facility] - 06/27/2024 8:29 AM [employer]NER Urine Culture not indicated us Polly Allen MD LAB - URINE ORDER SYD Final Result [facility] [place] [facility] [address] [facility], [address] [phone] * (ABNORMAL) Hepatic panel (06/27/2024 5:57 AM [employer]NER) Only the most recent of5 resultswithin the time period is included. [facility] Protein Total 7.4 6.4 - 8.3 g/dL 06/27/2024 9:06 AM [employer]NER [facility] Albumin 4.0 3.5 - 5.2 g/dL 06/27/2024 9:06 AM [employer]NER [facility] Bilirubin Total 1.2 <=1.2 mg/dL 06/27/2024 9:06 AM [employer]NER [facility] Alkaline Phosphatase 113 40 - 150 U/L 06/27/2024 9:06 AM [employer]NER [facility] AST 41 0 - 45 U/L 06/27/2024 9:06 AM [employer]NER [facility] ALT 35 0 - 50 U/L 06/27/2024 9:06 AM [employer]NER [facility] Bilirubin Direct 0.45(H) 0.00 - 0.30 mg/dL 06/27/2024 9:06 AM [employer]NER [facility] Blood BLOOD SPECIMEN / Unknown Venipuncture / Unknown 06/27/2024 5:57 AM [employer]NER 06/27/2024 6:06 AM [employer]NER us Polly Allen MD LAB - BLOOD ORDER SYD Final Result [facility] LAB[facility]AT[facility] Core Lab [address] [facility], [address] [phone] [place] * (ABNORMAL) Basic metabolic panel (06/27/2024 5:57 AM [employer]NER) Only the most recent of23 resultswithin the time period is included. [facility] Sodium 136 135 - 145 mmol/L 06/27/2024 7:08 AM [employer]NER [facility] Potassium 4.2 3.4 - 5.3 mmol/L 06/27/2024 7:08 AM [employer]NER [facility] Chloride 104 98 - 107 mmol/L 06/27/2024 7:08 AM [employer]NER [facility] Carbon Dioxide (CO2) 23 22 - 29 mmol/L 06/27/2024 7:08 AM [employer]NER [facility] Anion Gap 9 7 - 15 mmol/L 06/27/2024 7:08 AM [employer]GY [employer]NER [facility] Urea Nitrogen 8.0 6.0 - 20.0 mg/dL 06/27/2024 7:08 AM [employer]NER [facility] Creatinine 0.74 0.51 - 0.95 mg/dL 06/27/2024 7:08 AM [employer]NER [facility] GFR Estimate >90 >60 mL/min/1.7 3m2 06/27/2024 7:08 AM [employer]GY [employer]NER [facility] Comment:eGFR calculated usin 2020 CKD-EPI equation. Calcium 8.7(L) 8.8 - 10.4 mg/dL 06/27/2024 7:08 AM [employer]GY [employer]NER [facility] Glucose 90 70 - 99 mg/dL 06/27/2024 7:08 AM [employer]GY [employer]NER [facility] Blood BLOOD SPECIMEN / Unknown Venipuncture / Unknown 06/27/2024 5:57 AM [employer]NER 06/27/2024 6:06 AM [employer]NER us Jermaine Quispe MD LAB - BLOOD ORDERABLES Final Res ult [facility] LABORATORY [facility] [place] [facility] [address] [facility], [address] [phone] [place] * (ABNORMAL) CBC with platelets (06/27/2024 5:57 AM [employer]NER) Only the most recent of6 resultswithin the time period is included. WBC Count 17.8(H) 4.0 - 11.0 10e3/uL 06/27/2024 6:16 AM [employer]GY [employer]NER [facility] RBC Count 2.60(L) 3.80 - 5.20 10e6/uL 06/27/2024 6:16 AM [employer]GY [employer]NER [facility] Hemoglobin 8.5(L) 11.7 - 15.7 g/dL 06/27/2024 6:16 AM [employer] STRATEGY [employer]NER [facility] Hematocrit 25.9(L) 35.0 - 47.0 % 06/27/2024 6:16 AM [employer] STRATEGY [employer]NER [facility] MCV 100 78 - 100 fL 06/27/2024 6:16 AM [employer] AND STRATEGY PL[employer]NER [facility] MCH 32.7 26.5 - 33.0 pg 06/27/2024 6:16 AM [employer] STRATEGY PL[employer]NER [facility] MCHC 32.8 31.5 - 36.5 g/dL 06/27/2024 6:16 AM [employer] AND STRATEGY PLANNER [facility] RDW 19.2(H) 10.0 - 15.0 % 06/27/2024 6:16 AM [employer] STRATEGY [employer]NER [facility] Platelet Count 469(H) 150 - 450 10e3/uL 06/27/2024 6:16 AM [employer]GY [employer]NER [facility] Blood BLOOD SPECIMEN / Unknown Venipuncture / Unknown 06/27/2024 5:57 AM [employer]NER 06/27/2024 6:07 AM [employer]NER us Jermaine Quispe MD LAB - BLOOD ORDERABLES Final Res ult [facility] LAB[facility]AT[facility] [place] [facility] [address] [facility], [address] * (ABNORMAL) Erythrocyte sedimentation rate auto (06/26/2024 6:46 PM [employer]NER) Erythrocyte Sedimentation Rate 24(H) 0 - 20 mm/hr 06/26/2024 7:28 PM [employer]GY [employer]NER [facility] Blood BLOOD SPECIMEN / Unknown Venipuncture / Unknown 06/26/2024 6:46 PM [employer]NER 06/26/2024 7:14 PM [employer]NER us Jermaine Quispe MD LAB - BLOOD ORDERABLES Final Res ult [facility] LAB[facility] [place] [facility] [address] [facility], [address] * Blood Culture Peripheral Blood (06/26/2024 6:46 PM [employer]NER) Only the most recent of5 resultswithin the time period is included. Culture No Growth 07/01/2024 9:47 PM [employer]GY [employer]NER [facility] Blood BLOOD SPECIMEN / Unknown Venipuncture / Unknown 06/26/2024 6:46 PM [employer]GY [employer]NER 06/26/2024 7:14 PM [employer]NER Jermaine Quispe MD LAB - MICRO GENERAL ORDERABLES F inal Result [facility] LABORATORY [facility] Inf. Diseases Diag. Lab [address] [facility], [address] [place] [phone] * EKG 12 lead (06/26/2024 5:19 PM [employer]NER) Only the most recent of4 resultswithin the time period is included. Systolic Blood Pressure mmHg RADIOLOGY RESULTS Diastolic Blood Pressure mmHg RADIOLOGY RESULTS Ventricular Rate 79 BPM RAD IOLOGY RESULTS Atrial Rate 79 BPM RADIOLOG Y RESULTS UT Interval 160 ms RADIOLOG Y RESULTS QRS Duration 78 ms RADIOLO GY RESULTS QT 380 ms RADIOLOGY RESULTS QTc 435 ms RADIOLOGY RESULTS P [place] 39 degrees RADIOLOGY RESULTS R AXIS 42 degrees RADIOLOGY RESULTS T [place] 18 degrees RADIOLOGY RESULTS Interpretation ECG Sinus rhythm Normal ECG Unconfirmed report - interpretation of this ECG is computer generated - see medical record for final interpretation Confirmed by - EMERGENCY ROOM, PHYSICIAN ([id number]), content editor Woody Patten ([id number]) on 06/27/2024 6:46:34 AM RADIOLOGY RESULTS 06/26/2024 5:19 PM [employer]NER 06/27/2024 6:46 AM [employer]NER Jayden Adhikari MD ECG ORDERABLES Edited Resul t - Final RADIOLOGY RESULTS * CT Chest Pulmonary Embolism w Contrast (06/26/2024 4:15 PM [employer]NER) Only the most recent of3 resultswithin the time period is included. 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 No definitive evidence of right heart strain. Some bony changes again noted of sickle cell in the thoracic spine and humeral heads typical of microvascular insults related to sickle cell. EVY FUENTES MD Narrative 06/26/2024 4:29 PM CYBER [employer] AND [employer]NER CT chest pulmonary angiogram with contrast INDICATION: [...] XR, PA & LAT (06/26/2024 3:13 PM [employer]NER) Only the most recent of9 resultswithin the time period is included. Anatomical Region Laterality Modality Chest Digital Radiogra phy Impressions 06/26/2024 3:24 PM [employer]NER IMPRESSION: 1. Stable appearance of right middle lobe opacities which may represent infiltrate versus atelectasis. 2. No new or worsening cardiopulmonary abnormality. I have personally reviewed the examination and initial interpretation and I agree with the findings. EVY FUENTES MD Narrative 06/26/2024 3:24 PM [employer]NER EXAM: XR CHEST 2 VIEWS 06/26/2024 3:13 [...] findings. EVY FUENTES MD Jayden Adhikari MD IMG DIAGNOSTIC IMAGING ORDER SYD Final Result * Troponin T, High Sensitivity (06/26/2024 2:42 PM [employer]NER) Only the most recent of12 resultswithin the time period is included. [facility] Troponin T, High Sensitivity <6 <=14 ng/L 06/26/2024 3:24 PM [employer]GY [employer]NER [facility] Comment: Either a High Sensitivity [...] Unknown Venipuncture / Unknown 06/26/2024 2:42 PM [employer]GY [employer]NER 06/26/2024 2:52 PM [employer]NER Jayden Adhikari MD LAB - BLOOD ORDERABLES Final Result [facility] [place] [facility] [address] [facility], [address] [place] [phone] [place] * Procalcitonin (06/26/2024 2:42 PM [employer]GY [employer]NER) Procalcitonin 0.03 <0.50 ng/mL 06/26/2024 5:02 PM [employer] STRATEGY [employer]NER [facility] Comment: Interpretation and Recommendations <0.5 [...] See Procalcitonin Guidance document for more details. [email or web address] Factors that may affect PCT levels (not [...] Unknown Venipuncture / Unknown 06/26/2024 2:42 PM [employer]GY [employer]NER 06/26/2024 2:52 PM [employer]NER us Jayden Adhikari MD LAB - BLOOD ORDERABLES Final Result U LABORATORY [facility] [place] [facility] Lab [address] [facility], [address] [place] [phone], [facility] * HCG qualitative (blood) (06/26/2024 2:42 PM [employer]GY [employer]NER) Only the most recent of7 resultswithin the time period is included. hCG Serum Qualitative Negative Negative JARET 06/26/2024 3:04 PM [employer]GY [employer]NER [facility] Comment:This test is for scr eening purposes. Results should be interpreted along with the clinical picture. Confirmation testing is available if warranted by ordering [id number], HCG Quantitative . Blood BLOOD SPECIMEN / Unknown Venipuncture / Unknown 06/26/2024 2:42 PM [employer]GY [employer]NER 06/26/2024 2:50 PM [employer]GY [employer]NER Jayden Adhikari MD LAB - BLOOD ORDERABLES Final Result Performing Organization Address City/[facility]/ZIP Co de Phone Number [facility] LAB[facility] [place] [facility] [address] [facility], [address] * (ABNORMAL) D dimer quantitative (06/26/2024 2:42 PM [employer]NER) Only the most recent of2 resultswithin the time period is included. [facility] D-Dimer Quantitative 0.69(H) 0.00 - 0.50 ug/mL FEU 06/26/2024 3:13 PM [employer]GY [employer]NER [facility] Blood BLOOD SPECIMEN / Unknown Venipuncture / Unknown 06/26/2024 2:42 PM [employer]GY [employer]NER 06/26/2024 2:52 PM [employer]ATEGY [employer]NER Narrative [facility] - 06/26/2024 3:13 PM [employer]GY [employer]NER This D-dimer assay is intended for use in conjunction with a clinical pretest probability assessment model to exclude pulmonary embolism (PE) and deep venous thrombosis (DVT) in outpatients suspected of PE or DVT. The cut-off value is 0.50 ug/mL FEU. Jayden Adhikari MD LAB - BLOOD ORDERABLES Final Result Performing Organization Address City/[facility] Co de Phone Number U LABORATORY [facility] [place] [facility] [address] [facility], [address] * CRP inflammation (06/26/2024 2:42 PM [employer]GY [employer]NER) [facility] CRP Inflammation 4.22 <5.00 mg/L 06/27/19 5:02 PM [employer]GY [employer]NER [facility] Blood BLOOD SPECIMEN / Unknown Venipuncture / Unknown 06/26/2024 2:42 PM [employer]NER 06/26/2024 2:52 PM [employer]NER Jayden Adhikari MD LAB - BLOOD ORDERABLES Final Result Performing Organization Address City/[facility]/ZIP Co de Phone Number LABORATORY [facility] Core Lab [address] [facility], [address] [phone] [place] [address] * (ABNORMAL) INR (06/24/2024 10:11 AM [employer]NER) Only the most recent of3 resultswithin the time period is included. INR 1.45(H) 0.85 - 1.15 06/24/2024 10:54 AM [employer]GY [employer]NER [facility] Blood BLOOD SPECIMEN / Unknown Venipuncture / Unknown 06/24/2024 10:11 AM CYBER POL[employer]Y [employer]GY PLANNER 06/24/2024 10:21 AM CYBER POL[employer]Y AND STRATEGY PLANNER Richar Mahajan MD LAB - BLOOD ORDERABLES Liss l Result Performing Organization Address City/[facility]/ZIP Co de Phone Number LABORATORY [facility] Core Lab [address] [facility], [address] [id number] [place] [address] * Partial thromboplastin time (06/24/2024 10:11 AM CYBER [employer] AND [employer]ATEGY PLANNER) aPTT 32 22 - 38 Seconds 06/24/2024 10:55 AM CYBER POL[employer]Y AND STRATEGY PLANNER [facility] Blood BLOOD SPECIMEN / Unknown Venipuncture / Unknown 06/24/2024 10:11 AM CYBER [employer] AND STRATEGY PLANNER 06/24/2024 10:21 AM CYBER POL[employer]Y AND STRATEGY PLANNER Rihcar Mahajan MD LAB - BLOOD ORDERABLES Liss l Result Performing Organization Address City/[facility]/ZIP Co de Phone Number LABORATORY [facility] [place] Core Lab [address] [facility], [address] [phone] [place] [address] * Magnesium (06/24/2024 10:11 AM CYBER [employer]GY PLANNER) Magnesium 2.1 1.7 - 2.3 mg/dL 06/24/2024 10:51 AM CYBER [employer] AND STRATEGY PLANNER [facility] Blood BLOOD SPECIMEN / Unknown Venipuncture / Unknown 06/24/2024 10:11 AM CYBER [employer] AND [employer]ATEGY PLANNER 06/24/2024 10:21 AM CYBER [employer] AND STRATEGY PLANNER Richar Mahajan MD LAB - BLOOD ORDERABLES Liss l Result U LABORATORY [facility] [place] Core Lab [address] [facility], [address] * (ABNORMAL) Platelet count (06/19/2024 12:17 AM [employer]BER [employer]GY PLANNER) Platelet Count 467(H) 150 - 450 10e3/uL 06/19/2024 12:44 AM CYBER POL[employer]Y AND STRATEGY PLANNER [facility] Blood BLOOD SPECIMEN / Unknown Venipuncture / Unknown 06/19/2024 12:17 AM CYBER [employer] AND STRATEGY PLANNER 06/19/2024 12:26 AM CYBER POL[employer]Y AND STRATEGY PLANNER Laquita Kelley MD LAB - BLOOD ORDERABLES Final Re sult Performing Organization Address City/[facility]/ZIP Co de Phone Number U LABORATORY [facility] [place] Core Lab [address] [facility], [address] * Creatinine (06/19/2024 12:17 AM CYBER [employer] AND [employer]ATEGY PLANNER) Creatinine 0.72 0.51 - 0.95 mg/dL 06/19/2024 12:51 AM CYBER POL[employer] AND STRATEGY PLANNER [facility] GFR Estimate >90 >60 mL/min/1.7 3m2 06/19/2024 12:51 AM CYBER POL[employer]Y AND STRATEGY PLANNER [facility] Comment:eGFR calculated 2020 CKD-EPI equation. Blood BLOOD SPECIMEN / Unknown Venipuncture / Unknown 06/19/2024 12:17 AM CYBER [employer] AND STRATEGY PLANNER 06/19/2024 12:26 AM CYBER POL[employer] AND STRATEGY PLANNER Laquita Kelley MD LAB - BLOOD ORDERABLES Final Re sult U LABORATORY [facility] [place] Core Lab [address] [facility], [address] * Transfuse red blood cells (unit), Sickle Cell (Hgb S) Negative (06/17/2024 2:33 PM CYBER POL[employer] AND [employer]ATEGY PLANNER) Only the most recent of2 resultswithin the time period is included. us Drake Nina MD BLOOD TRANSFUSION ORDERABLES Final Result * Prepare red blood cells (unit) (06/17/2024 9:12 AM CYBER [employer] AND STRATEGY PLANNER) Only the most recent of2 resultswithin the time period is included. Pathologist [facility] [place] Blood Component Type Red Blood Cells U BLOOD BANK Product Code [id number] UU BLOO D BANK Unit Status Transfused UU BLOO D BANK Unit Number [id number] UU B LOOD BANK CROSSMATCH COMPATIBLE U BLOOD BANK CODING SYSTEM [id number] UU BLO OD BANK ISSUE DATE AND TIME [id number] UU BLOOD BANK UNIT ABO/RH A+ UU BLOOD BANK UNIT TYPE ISBT 6200 UU BL OOD BANK 06/17/2024 9:12 AM CYBER [employer] AND STRATEGY PLANNER us Drake Nina MD BLOOD BANK PRODUCT ORDERABLES Final Result Performing Organization Address City/[facility]/ZIP Co de Phone Number U BLOOD BANK [address] [place] [address], [facility] * (ABNORMAL) Transferrin (06/17/2024 6:16 AM CYBER POL[employer] AND STRATEGY PLANNER) Pathologist [facility] Transferrin 100.0(L) 200.0 - 360.0 mg/dL 06/17/2024 9:36 AM CYBER POL[employer] AND STRATEGY PLANNER [facility] Blood VENOUS LINE / Unknown IVAD (Port) / Unknown 06/17/2024 6:16 AM CYBER [employer] AND STRATEGY PLANNER 06/17/2024 6:27 AM CYBER POL[employer] AND STRATEGY PLANNER us Drake Nina MD LAB - BLOOD ORDERABLES Final Result U LABORATORY [facility] [place] Core Lab [address] [facility], [address] [place] [address], [facility] * Iron and iron binding capacity (06/17/2024 6:16 AM CYBER [employer] AND STRATEGY PLANNER) Iron 123 37 - 145 ug/dL 06/17/2024 10:02 AM CYBER POLICY AND STRATEGY PLANNER [facility] Iron Binding Capacity 06/17/2024 10:02 AM CYBER POLICY AND STRATEGY PLANNER [facility] Comment:Unable to calculate: UIBC or Iron value is outside detectable level. Iron Sat Index 06/17/2024 10:02 AM CYBER POL[employer] AND STRATEGY PLANNER [facility] Comment:Unable to calculate: UIBC or Iron value is outside detectable level. Blood VENOUS LINE / Unknown IVAD (Port) / Unknown 06/17/2024 6:16 AM CYBER [employer] AND STRATEGY PLANNER 06/17/2024 6:27 AM CYBER [employer] AND STRATEGY PLANNER us Drake Nina MD LAB - BLOOD ORDERABLES Final Result LABORATORY [facility] [place] Core Lab [address] [facility], [address] * (ABNORMAL) Prolactin (06/16/2024 5:37 PM CYBER [employer] AND [employer]ATEGY PLANNER) Pathologist [facility] Prolactin 55(H) 5 - 23 ng/mL 06/16/2024 6:24 PM CYBER POL[employer]Y AND STRATEGY PLANNER [facility] Blood BLOOD SPECIMEN / Unknown Venipuncture / Unknown 06/16/2024 5:37 PM CYBER [employer] AND [employer]ATEGY PLANNER 06/16/2024 5:46 PM CYBER POL[employer] AND STRATEGY PLANNER us Abimael Schofield MD LAB - BLOOD ORDERABLE S Final Result LABORATORY [facility] [place] Core Lab [address] [facility], [address] * XR Chest Port 1 View (06/14/2024 8:46 AM CYBER [employer] AND STRATEGY PLANNER) Anatomical Region Laterality Modality Chest Digital Radiogra phy Impressions 06/14/2024 8:59 AM CYBER [employer] AND STRATEGY PLANNER Impression: Further increase in ill-defined opacity projecting over the right lower lung concerning for pneumonia. MARIO ALBERTO BLACKWOOD MD Narrative 06/14/2024 8:59 AM CYBER [employer] STRATEGY PLANNER Exam: XR CHEST PORT 1 VIEW, 06/14/2024 [...] * Respiratory Panel PCR (06/12/2024 9:34 PM CYBER POL[employer] AND STRATEGY PLANNER) Pathologist [facility] [place] Adenovirus Not Detected Not Detected 06/12/2024 11:53 PM CYBER POL[employer]Y AND STRATEGY PLANNER [facility] Coronavirus Not Detected Not Detected 06/12/2024 11:53 PM CYBER POLICY AND STRATEGY PLANNER [facility] Comment:This test detects Co ronavirus 229E, HKU1, NL63 and OC43 but does not distinguish between them. It does not detect MERS ( Respiratory Syndrome), SARS (Severe Acute Respiratory Syndrome) or 2019-nCoV (Novel 2019) Coronavirus. Human Metapneumovirus Not Detected Not Detected 06/12/2024 11:53 PM CYBER POL[employer]Y AND STRATEGY PLANNER [facility] Human Rhin/Enterovirus Not Detected Not Detected 06/12/2024 11:53 PM CYBER POLICY AND STRATEGY PLANNER [facility] Influenza A Not Detected Not Detected 06/12/2024 11:53 PM CYBER POL[employer] AND STRATEGY PLANNER [facility] Influenza A, H1 Not Detected Not Detected 06/12/2024 11:53 PM CYBER POLICY AND STRATEGY PLANNER [facility] Influenza A 2009 H1N1 Not Detected Not Detected 06/12/2024 11:53 PM CYBER POLICY AND STRATEGY PLANNER [facility] Influenza A, H3 Not Detected Not Detected 06/12/2024 11:53 PM CYBER POLICY AND STRATEGY PLANNER [facility] Influenza B Not Detected Not Detected 06/12/2024 11:53 PM CYBER POLICY AND STRATEGY PLANNER [facility] Parainfluenza Virus 1 Not Detected Not Detected 06/12/2024 11:53 PM CYBER POLICY AND STRATEGY PLANNER [facility] Parainfluenza Virus 2 Not Detected Not Detected 06/12/2024 11:53 PM CYBER POLICY AND STRATEGY PLANNER [facility] Parainfluenza Virus 3 Not Detected Not Detected 06/12/2024 11:53 PM CYBER POLICY AND STRATEGY PLANNER [facility] Parainfluenza Virus 4 Not Detected Not Detected 06/12/2024 11:53 PM CYBER POLICY AND STRATEGY PLANNER [facility] Respiratory Syncytial Virus A Not Detected Not Detected 06/12/2024 11:53 PM CYBER POLICY AND STRATEGY PLANNER [facility] Respiratory Syncytial Virus B Not Detected Not Detected 06/12/2024 11:53 PM CYBER POLICY AND STRATEGY PLANNER [facility] Chlamydia Pneumoniae Not Detected Not Detected 06/12/2024 11:53 PM CYBER POLICY AND STRATEGY PLANNER [facility] Mycoplasma Pneumoniae Not Detected Not Detected 06/12/2024 11:53 PM CYBER POLICY AND STRATEGY PLANNER [facility] Swab NASOPHARYNGEAL STRUCTURE / Unknown Non-blood Collection / Unknown 06/12/2024 9:34 PM CYBER POLICY AND STRATEGY PLANNER 06/12/2024 9:47 PM CYBER POLICY AND STRATEGY PLANNER Narrative [facility] - 06/12/2024 11:53 PM CYBER POLICY AND STRATEGY PLANNER The ePlex Respiratory Panel is a qualitative nucleic acid, multiplex, in vitro diagnostic test for the simultaneous detection and identification of multiple respiratory viral and bacterial nucleic acids in nasopharyngeal swabs collected in viral transport media from individual exhibiting signs and symptoms of respiratory infection. The assay has received FDA approval for the testing of nasopharyngeal (ASSET PROTECTION REPRESENTATIVE) swabs only. This test is used for [...] HEALTH SYSTEM Inf. Diseases Diag. Lab [address] [facility], [address] [place] [address] * (ABNORMAL) Blood gas venous (06/12/2024 7:17 PM CYBER POL[employer]Y [employer] STRATEGY PLANNER) pH Venous 7.38 7.32 - 7.43 06/12/2024 7:40 PM CYBER POLICY AND STRATEGY PLANNER [facility] pCO2 Venous 42 40 - 50 mm Hg 06/12/2024 7:40 PM CYBER POLICY AND STRATEGY PLANNER [facility] pO2 Venous 35 25 - 47 mm Hg 06/12/2024 7:40 PM CYBER POLICY AND STRATEGY PLANNER [facility] Bicarbonate Venous 24 21 - 28 mmol/L 06/12/2024 7:40 PM CYBER POLICY AND STRATEGY PLANNER [facility] Base Excess/Deficit Venous -0.9 -3.0 - 3.0 mmol/L 06/12/2024 7:40 PM CYBER POLICY AND STRATEGY PLANNER [facility] FIO2 21 JARET 06/12/2024 7:40 PM CYBER POLICY AND STRATEGY PLANNER [facility] Oxyhemoglobin Venous 61(L) 70 - 75 % 06/12/2024 7:40 PM CYBER POLICY AND STRATEGY PLANNER [facility] O2 Sat, Venous 63.9(L) 70.0 - 75.0 % 06/12/2024 7:40 PM CYBER POLICY AND STRATEGY PLANNER [facility] Blood, venous VENOUS LINE / Unknown Venipuncture / Unknown 06/12/2024 7:17 PM CYBER POL[employer] AND STRATEGY PLANNER 06/12/2024 7:30 PM CYBER POLICY AND STRATEGY PLANNER Narrative [facility] - 06/12/2024 7:40 PM CYBER POL[employer]Y AND STRATEGY PLANNER In healthy individuals, oxyhemoglobin (O2Hb) and oxygen saturation (SO2) are approximately equal. In the presence of dyshemoglobins, oxyhemoglobin can be considerably lower than oxygen saturation. us Abdelrahman Goddard MD LAB - BLOOD ORDERABLES Final R esult [facility] LAB[facility]AT[facility] [place] Core Lab [address] [facility] [address], [address] [place] [address] [place] * ECG 12-LEAD WITH MUSE (LHE) (06/11/2024 9:04 PM CYBER POL[employer]Y AND STRATEGY PLANNER) Only the most recent of14 resultswithin the time period is included. Systolic Blood Pressure mmHg RADIOLOGY RESULTS Diastolic Blood Pressure mmHg RADIOLOGY RESULTS Ventricular Rate 102 BPM RAD IOLOGY RESULTS Atrial Rate 102 BPM RADIOLOG Y RESULTS UT Interval 158 ms RADIOLOG Y RESULTS QRS Duration 78 ms RADIOLO GY RESULTS QT 348 ms RADIOLOGY RESULTS QTc 453 ms RADIOLOGY RESULTS P [place] 39 degrees RADIOLOGY RESULTS R AXIS 66 degrees RADIOLOGY RESULTS T [place] 33 degrees RADIOLOGY RESULTS Interpretation ECG Sinus tachycardia Nonspecific T wave abnormality Abnormal ECG When compared with ECG of 05-Jun-2024 11:40, No significant change was found Confirmed by SEE ED PROVIDER NOTE FOR, ECG INTERPRETATION (4000), content editor SELMA GARRISON ([id number]) on 06/11/2024 9:05:27 PM RADIOLOGY RESULTS 06/11/2024 9:04 PM CYBER POL[employer] AND STRATEGY PLANNER 06/11/2024 9:05 PM CYBER POL[employer]Y AND STRATEGY PLANNER us Deshawn Arredondo MD ECG ORDERABLES Edited Resu lt - Final Performing Organization Address City/[facility]/ZIP Co de Phone Number RADIOLOGY RESULTS * HGB Eval Reflex to ELP or RBC Solubility (05/29/2024 11:23 AM CYBER POL[employer]Y AND STRATEGY PLANNER) Alpha Globin (HBA1 and HBA2) DD Bill Billed 05/31/2024 2:46 PM CYBER POLICY AND STRATEGY PLANNER [facility] Comment: Performed By: [facility] [address] [place] [address] Engineering Design Supervisor: Devon Healy MD, PhD CLIA Number: [id number] Blood VENOUS LINE / Unknown IVAD (Port) / Unknown 05/29/2024 11:23 AM CYBER POL[employer]Y AND STRATEGY PLANNER 05/29/2024 11:30 AM CYBER POL[employer]Y AND STRATEGY PLANNER us Case Samuel MD LAB CHARGE PERFORMABLES F inal Result Performing Organization Address City/[facility]/ZIP Co de Phone Number [id number] [address] [place] [address] [place] [phone] * Bill Only- Sickle Solubility Bill (05/29/2024 11:23 AM CYBER POL[employer]Y AND STRATEGY PLANNER) Sickle Solubility Reflex Bill Billed 05/31/2024 2:46 PM CYBER POLICY AND STRATEGY PLANNER [facility] Comment: Performed By: [facility] [address] [place] [address] Engineering Design Supervisor: Devon Healy MD, PhD CLIA Number: [id number] Blood VENOUS LINE / Unknown IVAD (Port) / Unknown 05/29/2024 11:23 AM CYBER POL[employer]Y AND STRATEGY PLANNER 05/29/2024 11:30 AM CYBER POLICY AND STRATEGY PLANNER Case Samuel MD LAB CHARGE PERFORMABLES F inal Result [facility] [address] [place] [address], [facility] [phone] * Genotype Red Blood Cell (05/29/2024 11:23 AM CYBER POLICY AND STRATEGY PLANNER) See Scanned Result GENOTYPE RED BLOOD CELL-Scanned 05/31/2024 10:16 AM CYBER POLICY AND STRATEGY PLANNER [facility] Blood VENOUS LINE / Unknown IVAD (Port) / Unknown 05/29/2024 11:23 AM CYBER POLICY AND STRATEGY PLANNER 05/29/2024 11:29 AM CYBER POLICY AND STRATEGY PLANNER Case Samuel MD LAB - BLOOD ORDERABLES Fi nal Result Performing Organization Address [facility]/[place] [address], [facility] [phone] * (ABNORMAL) HGB Eval Reflex to ELP or RBC Solubility (05/29/2024 11:23 AM CYBER POL[employer]Y AND STRATEGY PLANNER) Hemoglobin A 15.0(L) 95.0 - 97.9 % 05/31/2024 2:46 PM CYBER POLICY AND STRATEGY PLANNER [facility] Hemoglobin A2 3.0 2.0 - 3.5 % 05/31/2024 2:46 PM CYBER POLICY AND STRATEGY PLANNER [facility] Hemoglobin F 10.8(H) 0.0 - 2.1 % 05/31/2024 2:46 PM CYBER POLICY AND STRATEGY PLANNER [facility] Hemoglobin S 71.2(H) 0.0 - 0.0 % 05/31/2024 2:46 PM CYBER POLICY AND STRATEGY PLANNER [facility] Hemoglobin C 0.0 0.0 - 0.0 % 05/31/2024 2:46 PM CYBER POLICY AND STRATEGY PLANNER [facility] Hemoglobin E 0.0 0.0 - 0.0 % 05/31/2024 2:46 PM CYBER POLICY AND STRATEGY PLANNER [facility] Hemoglobin - Other 0.0 0.0 - 0.0 % 05/31/2024 2:46 PM CYBER POLICY AND STRATEGY PLANNER [facility] Hemoglobin Evaluation See Note 05/31/2024 2:46 PM CYBER POLICY AND STRATEGY PLANNER [facility] Comment: Impression: Hb S present Laboratory [...] by Alpha Globin (HBA1 and HBA2) Deletion/Duplication ([facility] test #[id number]) should be considered. Hb S/beta-plus thalassemia is typically characterized by more Hb S than Hb A with the presence of microcytosis. If microcytosis is present and Hb S/beta-plus thalassemia is suspected, Beta Globin (HBB) Sequencing ([facility] test #[id number]) is suggested. Hemoglobin analysis should be offered [...] developed and its performance characteristics determined by [facility]. It has not been cleared or approved by the U.S. Food and Drug Administration. This test was performed in a CLIA-certified laboratory and is intended for clinical purposes. Sickle Cell Solubility Reflex Positive(A) 05/31/2024 2:46 PM CYBER POLICY AND STRATEGY PLANNER [facility] Comment: INTERPRETIVE INFORMATION: Sickle Cell Solubility Reflex Not Performed: Solubility testing for Hemoglobin S not indicated. 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 Additional charges apply. Conf Previous: Positive for Hemoglobin S by HPLC. Solubility testing performed previously and not repeated with this submission. Hgb Capillary Electrophoresis Reflex Performed 05/31/2024 2:46 PM CYBER POLICY AND STRATEGY PLANNER [facility] Comment: INTERPRETIVE INFORMATION: Hgb Capillary Electrophoresis Reflex Not Performed: Confirmation by Capillary Electrophoresis not indicated. Performed: Results confirmed by Capillary Electrophoresis. Additional charges apply. Conf Previous: Capillary Electrophoresis confirmation performed as part of a previous submission. Confirmation not repeated with this submission. Performed By: [facility] [address] [place] [address] Engineering Design Supervisor: Devon Healy MD, PhD CLIA Number: [id number] Blood VENOUS LINE / Unknown IVAD (Port) / Unknown 05/29/2024 11:23 AM CYBER POL[employer]Y AND STRATEGY PLANNER 05/29/2024 11:30 AM CYBER POLICY AND STRATEGY PLANNER Case Samuel MD LAB - BLOOD ORDERABLES Fi nal Result Performing Organization Address City/[facility]/ZIP Co de Phone Number [facility] [address] [place] [phone], [facility] [phone] * (ABNORMAL) Ferritin (05/29/2024 11:23 AM CYBER POLICY AND STRATEGY PLANNER) Ferritin 1,559(H) 6 - 175 ng/mL 05/29/2024 12:43 PM CYBER POLICY AND STRATEGY PLANNER [facility] Blood VENOUS LINE / Unknown IVAD (Port) / Unknown 05/29/2024 11:23 AM CYBER POLICY AND STRATEGY PLANNER 05/29/2024 11:29 AM CYBER POLICY AND STRATEGY PLANNER us Case Samuel MD LAB - BLOOD ORDERABLES Fi nal Result [facility] [address] 1[address] [place] [address] * Urine Culture (05/29/2024 11:23 AM CYBER POLICY AND STRATEGY PLANNER) Culture <10,000 CFU/mL Mixture of Urogenital Vickie 05/30/2024 9:45 AM CYBER POLICY AND STRATEGY PLANNER [facility] Urine URINE SPECIMEN OBTAINED BY CLEAN CATCH PROCEDURE / Unknown Non-blood Collection / Unknown 05/29/2024 11:23 AM CYBER POLICY AND STRATEGY PLANNER 05/29/2024 11:41 AM CYBER POLICY AND STRATEGY PLANNER us Case Samuel MD LAB - MICRO GENERAL ORDER SYD Final Result [facility] Inf. Diseases Diag. Lab [address] [facility], [address] [place] [address], [facility] * IR Procedure Note (05/25/2024 2:54 PM CYBER POLICY AND STRATEGY PLANNER) Narrative Myron Michel MD - 05/25/2024 2:54 PM CYBER POLICY AND STRATEGY PLANNER Myron Michel MD 05/25/2024 2:55 PM [facility] Procedure: IR Procedure Note [...] the procedure a time out was called [place] Protocol: the Joint Commission [place] Protocol was followed Preparation: Patient was prepped and draped in usual sterile fashion ANESTHESIA Anesthesia: Local infiltration Local Anesthetic: Lidocaine 1% without epinephrine SEDATION Patient Sedated: Yes Sedation Type: Moderate (conscious) sedation Sedation: Fentanyl and midazolam Vital signs: Vital signs monitored during sedation See dictated procedure note for full details. Findings: Successful bilateral port placement apheresis on the right, 6 tristanian smart port on the left Specimens: none Procedural Complications: None Condition: Stable Plan: 1 hour bedrest then okay to discharge PROCEDURE Describe Procedure: Successful bilateral port placement apheresis on the right, 6 tristanian smart port on the left Patient Tolerance: Patient tolerated the procedure well with no immediate complications Length of time physician/provider present for 1:1 monitoring during sedation: 83-97 min us Myron Michel MD PROCEDURE/MINOR SURGICAL ORDERA BLES Final Result * IR Chest Port Placement > 5 Yrs of Age (05/25/2024 2:47 PM CYBER POL[employer]Y AND STRATEGY PLANNER) Only the most recent of2 resultswithin the time period is included. Anatomical Region Laterality Modality Chest Radio Fluoroscop y Impressions 05/25/2024 5:26 PM CYBER POL[employer]Y AND STRATEGY PLANNER IMPRESSION: Insertion of right-sided apheresis chest port, [...] mg Versed Sedation time: 97 minutes ATTENDING [id number] SEDATION TIME: less than 5 minutes. Access [...] placed: BD PowerFlow apheresis port Catheter size (Peruvian): 9.6 Lumens: Single-lumen Power injectable: Yes Catheter [...] JASWINDER COOPER MD Narrative 05/25/2024 5:26 PM CYBER [employer] AND STRATEGY PLANNER PROCEDURE: Venous port placement Procedural Personnel Attending [...] mg Versed Sedation time: 97 minutes ATTENDING [id number] SEDATION TIME: less than 5 minutes. Access [...] placed: BD PowerFlow apheresis port Catheter size (Peruvian): 9.6 Lumens: Single-lumen Power injectable: Yes Catheter [...] JASWINDER COOPER MD us Case Samuel MD [facility] IR ORDERABLES Final R esult * HCG qualitative urine (05/25/2024 12:03 PM CYBER POLICY AND STRATEGY PLANNER) Only the most recent of2 resultswithin the time period is included. hCG Urine Qualitative Negative Negative JARET 05/25/2024 12:34 PM CYBER POLICY AND STRATEGY PLANNER [facility] Comment:This test is for scr eening purposes. Results should be interpreted along with the clinical picture. Confirmation testing is available if warranted by ordering [id number], HCG Quantitative . Urine MID-STREAM URINE SPECIMEN / Unknown Non-blood Collection / Unknown 05/25/2024 12:03 PM CYBER POLICY AND STRATEGY PLANNER 05/25/2024 12:19 PM CYBER POLICY AND STRATEGY PLANNER us Jaswinder Cooper MD LAB - URINE ORDERABLES Liss l Result U LABORATORY [facility] [place] Core Lab [address] [facility], [address] [place] [address], [facility] * N terminal pro BNP outpatient (05/23/2024 9:02 PM CYBER POL[employer]Y AND STRATEGY PLANNER) N Terminal Pro BNP Outpatient 74 0 - 450 pg/mL 05/23/2024 9:39 PM CYBER POLICY AND STRATEGY PLANNER [facility] Comment: Reference range shown and [...] Unknown Venipuncture / Unknown 05/23/2024 9:02 PM CYBER POLICY AND STRATEGY PLANNER 05/23/2024 9:10 PM CYBER POLICY AND STRATEGY PLANNER us Marilia Summers MD LAB - BLOOD ORDERABLES Final Result Performing Organization Address City/[facility]/ZIP Co de Phone Number [facility] [address] [facility] [place] [address], [facility] * (ABNORMAL) CK total (05/19/2024 3:05 AM CYBER POL[employer]Y AND STRATEGY PLANNER) CK 240(H) 26 - 192 U/L 05/19/2024 3:37 AM CYBER POLICY AND STRATEGY PLANNER [facility] Blood VENOUS LINE / Unknown Venipuncture / Unknown 05/19/2024 3:05 AM CYBER POLICY AND STRATEGY PLANNER 05/19/2024 3:18 AM CYBER POLICY AND STRATEGY PLANNER Marilia Summers MD LAB - BLOOD ORDERABLES Final Result [facility] [address] [place] [address], [facility] * (ABNORMAL) Vitamin D deficiency screening (04/28/2024 1:50 AM CYBER POLICY AND STRATEGY PLANNER) Vitamin D, Total (25-Hydroxy) 8(L) 20 - 50 ng/mL 05/01/2024 6:42 PM CYBER POLICY AND STRATEGY PLANNER [facility] Comment:severe deficiency Blood BLOOD SPECIMEN / Unknown Venipuncture / Unknown 04/28/2024 1:50 AM CYBER POL[employer]Y AND STRATEGY PLANNER 04/28/2024 1:53 AM CYBER POLICY AND STRATEGY PLANNER Narrative [facility] - 05/01/2024 6:42 PM CYBER POL[employer]Y AND STRATEGY PLANNER Season, race, dietary intake, and treatment affect the concentration of [id number] D. Values may decrease during winter months and increase during summer months. Vitamin D determination is routinely performed by an immunoassay specific for 25 hydroxyvitamin D3. If an individual is on vitamin D2(ergocalciferol) supplementation, please specify 25 OH vitamin D2 and D3 level determination by LCMSMS test VITD23. us Case Samuel MD LAB - BLOOD ORDERABLES Fi nal Result U LABORATORY [facility] Core Lab [address] [facility], Room [address] [place] [id number] [place] * CT Pelvis Bone wo Contrast (04/19/2024 3:22 AM [employer]BER POL[employer]ATEGY PLANNER) Anatomical Region Laterality Modality Abdomen/Pelvis, SUBRAD CT MS K, [facility] CT ABDOMEN PELVIS, SUBRAD CT BODY, RAD CT Computed Tomography 04/19/2024 3:22 AM [employer]BER [employer]ATEGY PL[employer]NER Impressions 04/19/2024 4:06 AM [employer]BER POL[employer]ATEGY PLANNER IMPRESSION: 1. Sclerosis involving the left femoral [...] right femoral head. Narrative 04/19/2024 4:06 AM CYBER POL[employer] AND [employer]ATEGY PLANNER EXAM: CT PELVIS BONE WO CONTRAST LOCATION: [facility] DATE: 04/19/2024 INDICATION: Eval L hip pain, [...] EXAM: CT PELVIS BONE WO CONTRAST LOCATION: [facility] DATE: 04/19/2024 INDICATION: Eval L hip pain, [...] Extra Red Top Tube (04/08/2024 10:22 PM [employer]BER [employer]ATEGY PLANNER) Hold Specimen [facility] 04/08/2024 11:31 PM [employer]BER POL[employer]Y AND STRATEGY PLANNER [facility] LABOR[facility] Blood STRUCTURE OF LEFT UPPER LIMB / Unknown Venipuncture / Unknown 04/08/2024 10:22 PM [employer]BER [employer]ATEGY PL[employer]NER 04/08/2024 10:30 PM [employer]GY PL[employer]NER Deshawn Arredondo MD LAB - BLOOD ORDERABLES Liss l Result Performing Organization Address City/[facility]/ZIP Co de Phone Number [facility] [address] [place] * Extra Blue Top Tube (04/08/2024 10:22 PM [employer]BER POL[employer]ATEGY PLANNER) Hold Specimen [facility] 04/08/2024 11:31 PM [employer]BER [employer]ATEGY PL[employer]NER [facility] Blood STRUCTURE OF LEFT UPPER LIMB / Unknown Venipuncture / Unknown 04/08/2024 10:22 PM [employer]BER [employer]ATEGY PLANNER 04/08/2024 10:30 PM [employer]GY PL[employer]NER Deshawn Arredondo MD LAB - BLOOD ORDERABLES Liss l Result Performing Organization Address City/[facility]/ZIP Co de Phone Number [facility] [address] [place] [address], [facility] from Last 3 Months Insurance [place] [id number] [place] [id number] [place] Advance Directives For more information, please contact: [phone] * Full Code (Latest Code Status on [...] continue PREVIOUSLY ORDERED code status Care Teams Plumber'S Assistant Relationship Specialty Start Date End Date Veronica Joseph MD [address] [place] [address] PCP - General Family Medicine 06/18/24 Mor Ramsey Medical Student 04/03/24 Case Samuel MD [address] [place] [address] [address], [address] [place] [address] Assigned Pediatric Specialist Provider 05/18/24 Juhi Benson, RN Specialty Dye Reel Operator Helper Hematology & Oncology 05/29/24
--- NOTE | 2024-07-03 21:21 | ED.CHESTPAIN ---
HPI - Chest Pain General Chief Complaint: Chest Pain Stated Complaint: sickle cell crisis Time Seen by Provider: 07/03/24 20:29 History of Present Illness HPI narrative: This 29-year-old female has sickle cell disease and comes in reporting pain in her back and legs and a little bit in her chest. She has been having frequent visits here and in he stings and has been hospitalized for similar symptoms. She is currently taking Eliquis because they found some pulmonary emboli. She arrives here with normal vital signs. She is taking Dilaudid 4 mg tablets orally as needed. She states that that seems to help some. She is scheduled to have an exchange a week from now and states that she will not need to come back after that has occurred. She has been seen here several times and reports that she comes here only because her in-laws are in this area. Typically she goes to [place] and states that she does not go anywhere else. Related Data Home Medications ?Medication ?Instructions ?Recorded ?Confirmed hydromorphone 2 mg tablet 4 mg PO Q4H PRN pain 04/02/24 04/08/24 folic acid 2 tab PO DAILY 04/04/24 04/08/24 hydroxyurea (sickle cell) 1,000 mg PO BID 04/04/24 04/08/24 Previous Rx's ?Medication ?Instructions ?Recorded azithromycin 250 mg tablet 250 mg PO DAILY 4 days #4 tabs 04/08/24 cefdinir 300 mg capsule 300 mg PO BID #20 caps 04/08/24 cefdinir 300 mg capsule 300 mg PO BID 107 days #214 caps 04/08/24 Allergies Allergy/AdvReac Type Severity Reaction Status Date / Time cashew nut Allergy Verified 06/30/24 22:50 ketorolac (From Toradol) Allergy Verified 06/30/24 22:50 tramadol Allergy Verified 06/30/24 22:50 banana AdvReac Verified 06/30/24 22:50 latex AdvReac Verified 06/30/24 22:50 Review of Systems Status of ROS Reports: 10 or more systems reviewed and unremarkable except as noted in History and below Narrative Constitutional: No fevers, no weight gain or loss. Eyes: No discharge. No vision changes. HENT: No congestion, no sore throat, no ear pain. Cardiovascular: No palpitations. Respiratory: No shortness of breath, no wheezes, no cough. Gastrointestinal: No abdominal pain, no vomiting, no diarrhea. Genitourinary: No dysuria, no hematuria. Musculoskeletal: Normal range of motion. Skin: No rashes, no pruritis. Neurological: No dizziness, weakness, sensory change, speech change. Endo/Heme/Allergies: No bruising or bleeding. No polydipsia. Pysch: no suicidality, no anxiety, no insomnia. All other systems reviewed and are negative. [facility] Medical History (Updated 07/03/24 @ 21:28 by Owen Perla MD) Sickle cell pain crisis ?D57.00 - Hb-SS disease with crisis, unspecified (ICD-10) Sickle cell anemia ?D57.1 - Sickle-cell disease without crisis (ICD-10) Social History Smoking Status: Never smoker Do you use any of these nicotine containing products: None How often do you have a drink containing alcohol: never AUDIT-C Alcohol total score: 0 Non-prescribed substance use: opiods/painkillers service: No Exam Narrative Exam Narrative: Constitutional: Well-developed, well-nourished, no acute distress. HEENT: Normocephalic, atraumatic. Neck: Normal range of motion. Nontender. Supple. Heart: Regular. No murmurs. Normal rate. Intact distal pulses. Lungs: Clear to auscultation. No chest discomfort. No wheezes, rhonchi, or rales. Abdomen: Normal bowel sounds. Nontender. No rebound tenderness. Genitalia: Deferred. Back: No midline tenderness. Normal range of motion. Extremities: Normal range of motion. No injury. Skin: Intact. No rash. Warm. No erythema or pallor. Neurologic: No altered sensation. No weakness. Alert and oriented. Psychiatric: No suicidality. No anxiety or depression. No insomnia. Nursing notes and vitals signs are reviewed. Const Vital Signs, click to edit/add: Vital Signs - 24 hr 07/03/24 20:34 Temperature 98.3 F Pulse Rate [Pulse Oximeter] 94 Respiratory Rate 20 Blood Pressure [Right Upper Arm] 112/71 Pulse Oximetry 96 Oxygen Delivery Method Room Air Course Vital Signs Vital signs: Initial Vital Signs Temperature 98.3 F 07/03/24 20:34 Temperature Source Temporal Artery Scan 03/10/25 20:34 Pulse Rate 94 07/03/24 20:34 Respiratory Rate 20 07/03/24 20:34 Blood Pressure 112/71 07/03/24 20:34 Blood Pressure Mean 84 07/03/24 20:34 Pulse Oximetry 96 07/03/24 20:34 Oxygen Delivery Method Room Air 07/03/24 20:34 Vital Signs Temperature 98.3 F 07/03/24 20:34 Pulse Rate 94 07/03/24 20:34 Respiratory Rate 20 07/03/24 20:34 Blood Pressure 112/71 07/03/24 20:34 Pulse Oximetry 96 07/03/24 20:34 Oxygen Delivery Method Room Air 07/03/24 20:34 Temperature 98.3 F 07/03/24 20:34 Pulse Rate 94 07/03/24 20:34 Respiratory Rate 20 07/03/24 20:34 Blood Pressure 112/71 07/03/24 20:34 Pulse Oximetry 96 07/03/24 20:34 Oxygen Delivery Method Room Air 07/03/24 20:34 Medications Administered Medications: Generic Name Dose Route Start Last Admin Trade Name Freq PRN Reason Stop Dose Admin Lactated Ringer's 1,000 mls @ 1,000 mls/hr 07/03/24 21:19 07/03/24 21:41 Lactated Ringers 1000 Ml IV 07/03/24 22:18 1,000 mls/hr .Q1H ONE Administration Discontinued Medications Generic Name Dose Route Start Last Admin Trade Name Freq PRN Reason Stop Dose Admin Diphenhydramine HCl 25 mg 07/03/24 21:19 07/03/24 21:40 Diphenhydramine 50 Mg/Ml Inj IVP 07/03/24 21:20 25 mg ONCE ONE Administration Hydromorphone HCl 1 mg 07/03/24 21:19 07/03/24 21:40 Hydromorphone 0.5 Mg/0.5 Ml Inj IVP 07/03/24 21:20 1 mg ONCE ONE Administration MDM - Chest Pain MDM Narrative Medical decision making narrative: This patient has sickle cell disease and has been having recurrent pain. She was admitted for a pneumonia sometime in the past month and reports that she was diagnosed with pulmonary emboli and is currently on Eliquis. She does arrive here with normal vital signs and states that she does get some relief at times with taking oral Dilaudid. 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 I explained to her that repeated doses of IV narcotics in larger doses make us nervous. I do understand that sickle cell disease can require more of this. She states that she gets hives when she receives Toradol. She also states that IM Dilaudid does not seem to help her at all. I stated I prefer to do that instead of IV Dilaudid which she states that she would agree to accept that it does not seem to help her much. She reports that she is getting an exchange next week and does not have any plans to need to visit any ER thereafter. She did receive 1 L of Lactated Ringers with Benadryl 25 mg and Dilaudid 1 mg. Discharge Plan Discharge Clinical Impression: Sickle cell disease Patient Disposition: Home w/ Parent or Adult Condition: Stable Additional Instructions: Continue current plans. Follow up with Hematology for an exchange as scheduled. Prescriptions: No Action cefdinir 300 mg capsule 300 mg PO BID 107 Days Qty: 214 0RF azithromycin 250 mg tablet 250 mg PO DAILY 4 Days Qty: 4 0RF Rx Instructions: first dose was given in ER 04/08/24. start on day 2 of therapy cefdinir 300 mg capsule 300 mg PO BID Qty: 20 0RF hydromorphone 2 mg tablet 4 mg PO Q4H PRN (Reason: pain) hydroxyurea (sickle cell) 1,000 mg PO BID folic acid 2 tab PO DAILY Rx Instructions: 2mg Follow Up/Referrals: Provider,Not a Local [Primary Care Provider] - Stand Alone Forms: [employer] Info Instructions
--- OUTSIDE RECORDS SUMMARY | 2024-07-03 21:29 | XMS_ITS | Clinical Summary ---
Author Organization [facility] Address [address] [place] [id number] Care Team Providers Care Cap Jewel Plate Assembler Name Role Phone Veronica Joseph MD Primary Care Provider [phone] Allergies Active Allergy Reactions Criticality Noted Date [...] ickle cell pain crisis (HC) Inhale 1 [place] into affected nostril(s) each time if needed [...] for Pain. 10 Tablet 5 2:58 PM LOGISTICIAN 04/27/19 25 Active folic acid 1 mg tablet Take 1 tablet (1 mg) by mouth daily. 30 Tablet 5 1:41 PM LOGISTICIAN 05/01/19 25 Active hydroxyurea (HYDREA) 500 mg capsule Take 2 capsules (1,000 mg) by mouth 2 times daily 120 Capsule 05/01/19 25 Active multivitamin with folic acid 0.4 mg (Thera) Take 1 tablet by mouth daily. 30 Tablet 11 5 10:39 AM LOGISTICIAN 05/01/19 25 Active amoxicillin-clavul anate (AUGMENTIN) 875-125 mg tablet Take 1 tablet by mouth 2 times daily for 7 days. 14 Tablet 5 10:39 AM LOGISTICIAN 05/08/19 25 Active doxycycline hyclate 100 mg capsule Take 1 capsule (100 mg) by mouth 2 times daily for 7 days. 14 Capsule 5 10:39 AM LOGISTICIAN 05/08/19 25 Active HYDROmorphone 4 mg tablet Take 1 Tablet (4 mg) by mouth every 6 hours if needed for severe pain. 30 Tablet 5 1:04 PM LOGISTICIAN 05/09/19 25 Active FLUoxetine (PROZAC) 10 mg capsule Take 1 capsule (10 mg) by mouth daily. 40 Capsule 1 5 3:26 PM LOGISTICIAN 05/29/19 25 Active naloxone (NARCAN) 4 mg/actuation nasal spray [place] 1 spray (4 mg) into one nostril [...] times daily. 178 Tablet 5 3:59 PM LOGISTICIAN 06/30/19 25 025 Active HYDROmorphone 2 mg tablet Take 2 tablets (4 mg) by mouth every 6 hours as needed for severe pain. 40 Tablet 5 3:59 PM LOGISTICIAN 06/30/19 25 Active HYDROmorphone 2 mg tablet Take 2 tablets (4 mg) by mouth every 6 hours as needed for severe pain. 40 Tablet 5 3:26 PM LOGISTICIAN 05/29/19 25 025 Discontin ued(Reord er (E-cancel not sent)) HYDROmorphone 2 mg tablet Take 2 tablets (4 mg) by mouth every 6 hours as needed for severe pain. 40 Tablet 5 4:27 PM LOGISTICIAN 06/07/19 25 025 Discontin ued(Reord er (E-cancel not sent)) HYDROmorphone 2 mg tablet Take 2 tablets (4 mg) by mouth every 6 hours as needed for severe pain. 40 Tablet 5 11:11 AM LOGISTICIAN 06/15/19 25 025 Discontin ued(Reord er (E-cancel [...] Department Care Team Description 06/11/2024 1:08 AM LOGISTICIAN - 06/11/2024 3:[address] [facility] Emergency [address] [address] Juan Kunz, DO Sickle cell pain crisis (HC) (Primary Dx) Discharge Disposition: Home Self Care 06/11/2024 Travel 06/06/2024 Refill [facility] [address] [place] [address] Veronica Joseph MD Refill Request 06/03/2024 11:37 AM LOGISTICIAN - 06/03/2024 2:[address] [address] Ben Swan MD Viral syndrome (Primary Dx) Discharge Disposition: Home Self Care 06/03/2024 Travel 05/29/2024 1:53 PM LOGISTICIAN - 05/29/2024 2:[address] [address] Ana Pacheco MD Sickle cell pain crisis (HC) (Primary Dx) Discharge Disposition: Home Self Care 05/29/2024 Travel 05/21/2024 10:35 AM LOGISTICIAN - 05/21/2024 2:[address] [address] Juliana Gil, Sickle cell disease with crisis (HC) (Primary Dx); Diffuse pain Discharge Disposition: Home Self Care 05/21/2024 Travel 05/18/2024 2:12 AM LOGISTICIAN - 05/18/2024 4:[address] [address] Onesimo Gaviria MD Sickle cell pain crisis (HC) (Primary Dx) Discharge Disposition: Home Self Care 05/18/2024 Travel 05/17/2024 Telephone [facility] [address] [place] [address] Veronica Joseph MD Questions (HEALTH STATUS ) 05/10/2024 Telephone [facility] [address] [place] [address] Veronica Joseph MD Follow Up 05/07/2024 5:53 PM LOGISTICIAN - 05/07/2024 8:[address] [address] Caryn Downs MD Sickle cell anemia with pain (HC) (Primary Dx); RUQ abdominal pain Discharge Disposition: Home Self Care 05/07/2024 Travel 05/03/2024 10:59 PM LOGISTICIAN - 05/04/2024 2:[address] [address] Anika Mccracken MD Discharge Disposition: Home Self Care 05/03/2024 Travel 05/02/2024 10:15 AM LOGISTICIAN - 05/02/2024 12:[address] [address] Juan Kunz DO Sickle cell pain crisis (HC) (Primary Dx) Discharge Disposition: Home Self Care 05/02/2024 Travel 04/27/2024 Telephone [facility] [address] [place] [address] Veronica Joseph MD 04/27/2024 Refill [facility] [address] [place] [address] Veronica Joseph MD Refill Request (HYDROmorphone 4 mg tablet ) 04/24/2024 1:31 AM LOGISTICIAN - 04/24/2024 4:[address] [address] Onesimo Gaviria MD Sickle cell pain crisis (HC) (Primary Dx); Community acquired pneumonia, unspecified laterality Discharge Disposition: Home Self Care 04/24/2024 Refill [facility] [address] [place] [address] Veronica Joseph MD Refill Request (HYDROmorphone 4 mg tablet ) 04/24/2024 Travel 04/22/2024 1:40 PM LOGISTICIAN - 04/22/2024 5:[address] [address] Shauna Flaherty PA Sickle cell pain crisis (HC) (Primary Dx) Discharge Disposition: Home Self Care 04/22/2024 Travel 04/20/2024 3:40 PM LOGISTICIAN - 04/20/2024 6:[address] [address] Maria Teresa Haider PA Left hip pain (Primary Dx) Discharge Disposition: Home Self Care 04/20/2024 Travel 04/20/2024 Telephone [facility] [address] [place] [address] Veronica Joseph MD 04/20/2024 Refill [facility] [address] [place] [address] Veronica Joseph MD Refill Request (HYDROmorphone 4 mg tablet) 04/19/2024 7:18 PM LOGISTICIAN - 04/19/2024 9:[address] [address] Maria Teresa Haider PA Closed right hip fracture, initial encounter (HC) (Primary Dx); Avascular necrosis of bone of right hip (HC); Sickle cell pain crisis (HC) Discharge Disposition: Home Self Care 04/19/2024 Travel 04/18/2024 3:51 AM LOGISTICIAN - 04/18/2024 5:[address] [address] Elizabeth Duffy MD Left hip pain (Primary Dx); Sickle cell disease with crisis (HC) Discharge Disposition: Home Self Care 04/17/2024 10:36 AM LOGISTICIAN - 04/17/2024 12:36 PM LOGISTICIAN [address] [address] Juhi Hull PA Left hip pain (Primary Dx); Sickle cell pain crisis (HC) Discharge Disposition: Home Self Care 04/17/2024 Travel 04/15/2024 5:33 PM LOGISTICIAN - 04/15/2024 10:[address] [address] Kathy Contreras MD Sickle cell pain crisis (HC) (Primary Dx) Discharge Disposition: Home Self Care 04/15/2024 Travel 04/11/2024 9:55 AM LOGISTICIAN Office Visit [facility] [address] [place] [address] Veronica Joseph MD Follow Up (Sickle Cell) 04/11/2024 Travel 04/08/2024 6:17 PM LOGISTICIAN - 04/08/2024 8:[address] [address] Ana Pacheco MD Sickle cell pain crisis (HC) (Primary Dx) Discharge Disposition: Home Self Care 04/08/2024 Travel 04/06/2024 8:27 PM LOGISTICIAN - 04/06/2024 10:[address] [address] Tanmay Olivares PA Biliary colic (Primary Dx) Discharge Disposition: Home Self Care 04/06/2024 Travel 04/04/2024 6:29 PM LOGISTICIAN - 04/04/2024 10:[address] [address] Juhi Patel PA Sickle cell anemia with [...] on file Legal Sex Female 8:18 PM LOGISTICIAN Gender Identity Not on file Sexual Orientation Not on file Obstetrics History Last Filed Vital Signs Vital Sign Reading Time Taken Comments Blood Pressure 121/73 06/11/2024 3:30 AM LOGISTICIAN Pulse 93 06/11/2024 3:30 AM LOGISTICIAN Temperature 36.6 C (97.9 F) 06/11/2024 1:12 AM LOGISTICIAN Respiratory Rate 18 06/11/2024 3:00 AM LOGISTICIAN Oxygen Saturation 95% 06/11/2024 3:30 AM LOGISTICIAN Inhaled Oxygen Concentration - - Weight 51.7 kg (114 lb) 06/11/2024 1:10 AM LOGISTICIAN Height 154.9 cm (5' 1) 06/11/2024 1:10 AM LOGISTICIAN Body Mass Index 21.54 06/11/2024 1:10 AM LOGISTICIAN Plan of Treatment Health Maintenance Due Date [...] WITH AUTO DIFFERENTIAL STAT 06/03/2024 12:51 PM LOGISTICIAN INFLUENZA A/B PCR Today 06/03/2024 12: 51 PM LOGISTICIAN COVID-19 MOLECULAR Today 06/03/2024 12 :51 PM LOGISTICIAN BASIC METABOLIC PANEL STAT 06/03/2024 12:51 PM LOGISTICIAN CBC WITH AUTO DIFFERENTIAL STAT 06/03/2024 12:51 PM LOGISTICIAN XR CHEST 2 VIEWS PA AND LATERAL STAT 06/03/2024 12:34 PM LOGISTICIAN EKG 12 LEAD STAT 06/03/2024 11:48 AM LOGISTICIAN HEMOGLOBIN STAT 05/29/2024 2:23 PM LOGISTICIAN EKG 12 LEAD STAT 05/29/2024 2:03 PM LOGISTICIAN EKG 12 LEAD STAT 05/21/2024 10:19 AM LOGISTICIAN RED CELL MORPHOLOGY STAT 05/07/2024 6 :20 PM LOGISTICIAN PLATELET ESTIMATE STAT 05/07/2024 6:2 0 PM LOGISTICIAN RETICULOCYTES STAT 05/07/2024 6:20 PM LOGISTICIAN LIPASE STAT 05/07/2024 6:20 PM LOGISTICIAN HEPATIC FUNCTION PANEL STAT 6:20 PM LOGISTICIAN BASIC METABOLIC PANEL STAT 05/07/2024 6:20 PM LOGISTICIAN CBC W PLT NO DIFF STAT 05/07/2024 6:[address] CHEST PE STUDY STAT 05/04/2024 1:4 6 AM LOGISTICIAN RETICULOCYTES STAT 05/04/2024 12:24 AM LOGISTICIAN URINE Today 05/04/2024 12:07 AM LOGISTICIAN UA W/ SEDIMENT EXAM REFLEXED PER CRITERIA Today 05/04/2024 12:07 AM LOGISTICIAN CWS PATH REVIEW HEMATOLOGY STAT 05/03/2024 11:52 PM LOGISTICIAN RED CELL MORPHOLOGY STAT 05/03/2024 1 1:52 PM LOGISTICIAN PLATELET ESTIMATE STAT 05/03/2024 11: 52 PM LOGISTICIAN MANUAL DIFFERENTIAL STAT 05/03/2024 1 1:52 PM LOGISTICIAN CBC WITH AUTO DIFFERENTIAL STAT 05/03/2024 11:52 PM LOGISTICIAN D-DIMER,QUANTITATIVE STAT 05/03/2024 11:52 PM LOGISTICIAN HEPATIC FUNCTION PANEL STAT 11:52 PM LOGISTICIAN BASIC METABOLIC PANEL STAT 05/03/2024 11:52 PM LOGISTICIAN CBC WITH AUTO DIFFERENTIAL STAT 05/03/2024 11:52 PM LOGISTICIAN EKG 12 LEAD STAT 05/03/2024 11:48 PM LOGISTICIAN INFLUENZA A/B PCR Today 05/02/2024 10: 20 AM LOGISTICIAN COVID-19 MOLECULAR Today 05/02/2024 10 :20 AM LOGISTICIAN CBC WITH AUTO DIFFERENTIAL SULEMA 04/24/2024 2:16 AM LOGISTICIAN RETICULOCYTES Early AM 04/24/2024 2:16 AM LOGISTICIAN CBC WITH AUTO DIFFERENTIAL SULEMA 04/24/2024 2:16 AM LOGISTICIAN BASIC METABOLIC PANEL SULEMA 04/24/2024 2:16 AM LOGISTICIAN XR CHEST 2 VIEWS PA AND LATERAL STAT 04/24/2024 1:58 AM LOGISTICIAN EKG 12 LEAD SULEMA 04/24/2024 1:38 AM LOGISTICIAN RETICULOCYTES STAT 04/22/2024 2:21 PM LOGISTICIAN BASIC METABOLIC PANEL STAT 04/22/2024 2:21 PM LOGISTICIAN CBC W PLT NO DIFF STAT 04/22/2024 2:2 1 PM LOGISTICIAN XR CHEST 2 VIEWS PA AND LATERAL STAT 04/22/2024 1:18 PM LOGISTICIAN EKG 12 LEAD STAT 04/22/2024 1:06 PM LOGISTICIAN TYPE & SCREEN STAT 04/20/2024 4:43 PM LOGISTICIAN RED CELL MORPHOLOGY STAT 04/20/2024 4 :43 PM LOGISTICIAN PLATELET ESTIMATE STAT 04/20/2024 4:4 3 PM LOGISTICIAN MANUAL DIFFERENTIAL STAT 04/20/2024 4 :43 PM LOGISTICIAN CBC WITH AUTO DIFFERENTIAL STAT 04/20/2024 4:43 PM LOGISTICIAN RETICULOCYTES STAT 04/20/2024 4:43 PM LOGISTICIAN CBC WITH AUTO DIFFERENTIAL STAT 04/20/2024 4:43 PM LOGISTICIAN BASIC METABOLIC PANEL STAT 04/20/2024 4:25 PM LOGISTICIAN XR ANKLE 3 VIEWS LEFT STAT 04/18/2024 5:09 AM LOGISTICIAN C-REACTIVE PROTEIN STAT 04/18/2024 4: 59 AM LOGISTICIAN BASIC METABOLIC PANEL STAT 04/18/2024 4:59 AM LOGISTICIAN SEDIMENTATION RATE STAT 04/18/2024 4: 58 AM LOGISTICIAN CBC WITH AUTO DIFFERENTIAL STAT 04/18/2024 4:58 AM LOGISTICIAN RETICULOCYTES STAT 04/18/2024 4:58 AM LOGISTICIAN CBC WITH AUTO DIFFERENTIAL STAT 04/18/2024 4:58 AM LOGISTICIAN RED CELL MORPHOLOGY STAT 04/17/2024 1 0:50 AM LOGISTICIAN PLATELET ESTIMATE STAT 04/17/2024 10: 50 AM LOGISTICIAN C-REACTIVE PROTEIN SULEMA 04/17/2024 10 :50 AM LOGISTICIAN SEDIMENTATION RATE SULEMA 04/17/2024 10 :50 AM LOGISTICIAN CBC W PLT NO DIFF STAT 04/17/2024 10: 50 AM LOGISTICIAN BASIC METABOLIC PANEL STAT 04/17/2024 10:50 AM LOGISTICIAN RETICULOCYTES STAT 04/17/2024 10:50 AM LOGISTICIAN XR HIP 2 OR 3 VIEWS W PELVIS LEFT STAT 04/15/2024 6:34 PM LOGISTICIAN TYPE & SCREEN STAT 04/15/2024 6:10 PM LOGISTICIAN RED CELL MORPHOLOGY STAT 04/15/2024 6 :10 PM LOGISTICIAN PLATELET ESTIMATE STAT 04/15/2024 6:1 0 PM LOGISTICIAN C-REACTIVE PROTEIN STAT 04/15/2024 6: 10 PM LOGISTICIAN SEDIMENTATION RATE STAT 04/15/2024 6: 10 PM LOGISTICIAN CBC WITH AUTO DIFFERENTIAL STAT 04/15/2024 6:10 PM LOGISTICIAN BASIC METABOLIC PANEL STAT 04/15/2024 6:10 PM LOGISTICIAN RETICULOCYTES STAT 04/15/2024 6:10 PM LOGISTICIAN CBC WITH AUTO DIFFERENTIAL STAT 04/15/2024 6:10 PM LOGISTICIAN RED CELL MORPHOLOGY Timed 04/08/2024 8 :27 PM LOGISTICIAN PLATELET ESTIMATE Timed 04/08/2024 8:2 7 PM LOGISTICIAN RETICULOCYTES Early AM 04/08/2024 8:27 PM LOGISTICIAN CBC W PLT NO DIFF Early AM 04/08/2024 8:2 7 PM LOGISTICIAN XR CHEST 2 VIEWS PA AND LATERAL STAT 04/08/2024 7:28 PM LOGISTICIAN BASIC METABOLIC PANEL STAT 04/08/2024 7:05 PM LOGISTICIAN EKG 12 LEAD STAT 04/08/2024 5:50 PM LOGISTICIAN US ABDOMEN LIMITED GALLBLADDER STAT 04/06/2024 9:38 PM LOGISTICIAN CBC WITH AUTO DIFFERENTIAL STAT 04/06/2024 8:55 PM LOGISTICIAN RETICULOCYTES STAT 04/06/2024 8:55 PM LOGISTICIAN LIPASE STAT 04/06/2024 8:55 PM LOGISTICIAN COMP METABOLIC PANEL STAT 04/06/2024 8:55 PM LOGISTICIAN CBC WITH AUTO DIFFERENTIAL STAT 04/06/2024 8:55 PM LOGISTICIAN XR CHEST 2 VIEWS PA AND LATERAL STAT 04/04/2024 7:28 PM LOGISTICIAN RED CELL MORPHOLOGY STAT 04/04/2024 6 :54 PM LOGISTICIAN PLATELET ESTIMATE STAT 04/04/2024 6:5 4 PM LOGISTICIAN MANUAL DIFFERENTIAL STAT 04/04/2024 6 :54 PM LOGISTICIAN TROPONIN T (HS) ACUTE W/2HR REFLEX SULEMA 04/04/2024 6:54 PM LOGISTICIAN CBC WITH AUTO DIFFERENTIAL STAT 04/04/2024 6:54 PM LOGISTICIAN RETICULOCYTES STAT 04/04/2024 6:54 PM LOGISTICIAN BASIC METABOLIC PANEL STAT 04/04/2024 6:54 PM LOGISTICIAN CBC WITH AUTO DIFFERENTIAL STAT 04/04/2024 6:54 PM LOGISTICIAN EKG 12 LEAD STAT 04/04/2024 6:45 PM LOGISTICIAN from Last 3 Months Results * COVID-19 MOLECULAR (06/03/2024 12:51 PM LOGISTICIAN) Only the most recent of2 resultswithin the time period is included. Pathologist [facility] COVID 19 [place] MOLECULAR Not detected Not detected 06/03/2024 1:18 PM LOGISTICIAN [facility] TESTING LABORATORY [facility] 06/03/2024 1:18 PM LOGISTICIAN [facility] Comment:Specimen submitted t o [facility] for testing. Other SPECIMEN FROM NASOPHARYNGEAL STRUCTURE / Unknown Non-Blood / Unknown 06/03/2024 12:51 PM LOGISTICIAN 06/03/2024 12:54 PM LOGISTICIAN Ben Swan MD MICROBIOLOGY Final Res ult [facility] [address] [place] [address], * INFLUENZA A/B PCR (06/03/2024 12:51 PM LOGISTICIAN) Only the most recent of2 resultswithin the time period is included. Pathologist [facility] INFLUENZA A PCR NOT Detected 06/03/2024 1:18 PM LOGISTICIAN [facility] INFLUENZA B PCR NOT Detected 06/03/2024 1:18 PM LOGISTICIAN [facility] Other SPECIMEN FROM NASOPHARYNGEAL STRUCTURE / Unknown Non-Blood / Unknown 06/03/2024 12:51 PM LOGISTICIAN 06/03/2024 12:54 PM LOGISTICIAN Ben Swan MD MICROBIOLOGY Final Res ult [facility] [address] [place] [address], * (ABNORMAL) CBC WITH AUTO DIFFERENTIAL (06/03/2024 12:51 PM LOGISTICIAN) Only the most recent of8 resultswithin the time period is included. WHITE BLOOD COUNT 11.0 4.5 - 11.0 thou/cu mm 06/03/2024 1:05 PM LOGISTICIAN [facility] RED BLOOD COUNT 2.94(L) 4.00 - 5.20 mil/cu mm 06/03/2024 1:05 PM LOGISTICIAN [facility] HEMOGLOBIN 9.3(L) 12.0 - 16.0 g/dL 06/03/2024 1:05 PM LOGISTICIAN [facility] HEMATOCRIT 26.9(L) 33.0 - 51.0 % 06/03/2024 1:05 PM LOGISTICIAN [facility] MCV 92 80 - 100 fL 06/03/2024 1:05 PM LOGISTICIAN [facility] MCH 31.6 26.0 - 34.0 pg 06/03/2024 1:05 PM LOGISTICIAN [facility] MCHC 34.6 32.0 - 36.0 g/dL 06/03/2024 1:05 PM LOGISTICIAN [facility] RDW 18.9(H) 11.5 - 15.5 % 06/03/2024 1:05 PM LOGISTICIAN [facility] PLATELET COUNT 456(H) 140 - 440 thou/cu mm 06/03/2024 1:05 PM [facility] MPV 9.8 6.5 - 11.0 fL 06/03/2024 1:05 PM LOGISTICIAN [facility] NRBC 0.6 % 06/03/2024 1:05 PM LOGISTICIAN [facility] ABS NRBC 0.1 thou /cu mm 06/03/2024 1:05 PM LOGISTICIAN [facility] % NEUT 69.9 % 06/03/2024 1:05 PM LOGISTICIAN [facility] % LYMPH 15.1 % 06/03/2024 1:05 PM LOGISTICIAN [facility] % MONO 13.4 % 06/03/2024 1:05 PM LOGISTICIAN [facility] % EOS 0.2 % 06/03/2024 1:05 PM LOGISTICIAN [facility] % BASO 0.9 % 06/03/2024 1:05 PM LOGISTICIAN [facility] % IMMATURE GRAN (METAS,MYELOS,MA OS) 0.5 % 06/03/2024 1:05 PM LOGISTICIAN [facility] ABSOLUTE NEUTROPHILS 7.7(H) 1.7 - 7.0 thou/cu mm 06/03/2024 1:05 PM LOGISTICIAN [facility] ABSOLUTE LYMPHOCYTES 1.7 0.9 - 2.9 thou/cu mm 06/03/2024 1:05 PM LOGISTICIAN [facility] ABSOLUTE MONOCYTES 1.5(H) <0.9 thou/cu mm 06/03/2024 1:05 PM LOGISTICIAN [facility] ABSOLUTE EOSINOPHILS 0.0 <0.5 thou/cu mm 06/03/2024 1:05 PM LOGISTICIAN [facility] ABSOLUTE BASOPHILS 0.1 <0.3 thou/cu mm 06/03/2024 1:05 PM LOGISTICIAN [facility] ABSOLUTE IMMATURE GRANULOCYTES(MET ,MYELOS,PROS) 0.1 <0.3 thou/cu mm 06/03/2024 1:05 PM LOGISTICIAN [facility] Blood BLOOD SPECIMEN / Unknown IV Start / Unknown 06/03/2024 12:51 PM LOGISTICIAN 06/03/2024 12:54 PM LOGISTICIAN us Ben Swan MD HEMATOLOGY Final Res ult [facility] [address] [place] [address], * (ABNORMAL) BASIC METABOLIC PANEL (06/03/2024 12:51 PM LOGISTICIAN) Only the most recent of11 resultswithin the time period is included. SODIUM 135(L) 136 - 145 mmol/L 06/03/2024 1:13 PM LOGISTICIAN [facility] POTASSIUM 4.5 3.5 - 5.1 mmol/L 06/03/2024 1:13 PM LOGISTICIAN [facility] CHLORIDE 101 98 - 107 mmol/L 06/03/2024 1:13 PM LOGISTICIAN [facility] CO2,TOTAL 21(L) 22 - 29 mmol/L 06/03/2024 1:13 PM LOGISTICIAN [facility] ANION GAP 13 5 - 18 06/03/2024 1:13 PM LOGISTICIAN [facility] GLUCOSE 100(H) 70 - 99 mg/dL 06/03/2024 1:13 PM LOGISTICIAN [facility] CALCIUM 9.6 8.8 - 10.4 mg/dL 06/03/2024 1:13 PM LOGISTICIAN [facility] Comment: Reference ranges for this test were updated on 02/29/2024 to reflect our healthy population more accurately. Reference range changes are not retroactively applied to results, but previous results using the same methodology can be interpreted in the context of the new reference range. BUN 12 6 - 20 mg/dL 06/03/2024 1:13 PM LOGISTICIAN [facility] CREATININE 0.74 0.50 - 0.90 mg/dL 06/03/2024 1:13 PM LOGISTICIAN [facility] BUN/CREAT RATIO 16 10 - 20 1:13 PM LOGISTICIAN [facility] eGFR >90 >90 mL/min/1.7 3m2 06/03/2024 1:13 PM LOGISTICIAN [facility] Comment:As of 2021, eG FR is calculated by the CKD-EPI creatinine equation without race adjustment. eGFR can be influenced by muscle mass, exercise, and diet. The reported eGFR is an estimation only and is only applicable if the renal function is stable. Blood BLOOD SPECIMEN / Unknown IV Start / Unknown 06/03/2024 12:51 PM LOGISTICIAN 06/03/2024 12:54 PM LOGISTICIAN us Ben Swan MD CHEMISTRY Final Res ult [facility] [address] [place] [address], * XR CHEST 2 VIEWS PA AND LATERAL (06/03/2024 12:34 PM LOGISTICIAN) Only the most recent of5 resultswithin the time period is included. Anatomical Region Laterality Modality CHEST, THORAX, Lung, HEART Compu frank Radiography 06/03/2024 12:3 4 PM LOGISTICIAN Impressions 06/03/2024 1:03 PM LOGISTICIAN Faintly visible nodularity mid and lower lungs correspond to pulmonary nodules on recent CT. No focal pulmonary consolidation. No pleural effusion. No pneumothorax. Heart size normal. Port anterior right chest wall with right-sided CVC low SVC. In addition, there is a left-sided port anterior left chest wall with left CVC tip also in the low SVC. Narrative 06/03/2024 1:03 PM LOGISTICIAN For Patients: As a result of the [...] * EKG 12 LEAD (06/03/2024 11:48 AM LOGISTICIAN) Only the most recent of8 resultswithin the [...] NOW QTc 454 ms BEYOND NOW P [place] 54 degrees BEYOND NOW R [place] 55 degrees BEYOND NOW T [place] 31 degrees BEYOND NOW 06/03/2024 11:4 8 AM LOGISTICIAN 06/04/2024 3:27 AM LOGISTICIAN Narrative [facility] - 06/04/2024 3:27 AM LOGISTICIAN Test Indication: chest pain [facility] Triage EKG ORD Final Result [place], [place] * (ABNORMAL) HEMOGLOBIN (05/29/2024 2:23 PM LOGISTICIAN) HEMOGLOBIN 7.1(L) 12.0 - 16.0 g/dL 05/29/2024 2:32 PM LOGISTICIAN [facility] MCV 93 80 - 100 fL 05/29/2024 2:32 PM LOGISTICIAN [facility] Blood BLOOD SPECIMEN / Unknown IV Start / Unknown 05/29/2024 2:23 PM LOGISTICIAN 05/29/2024 2:30 PM LOGISTICIAN Ana Pacheco MD HEMATOLOGY Final Result [facility] [address] [place] [id number], * (ABNORMAL) RED CELL MORPHOLOGY (05/07/2024 6:20 PM LOGISTICIAN) Only the most recent of7 resultswithin the time period is included. POLYCHROMASIA Moderate 05/07/2024 6:33 PM LOGISTICIAN [facility] TARGET CELLS Moderate 05/07/2024 6:33 PM LOGISTICIAN [facility] RBC COMMENT Present(A) RBC morphology appears normal, RBC morphology within normal limits for newborns. 05/07/2024 6:33 PM LOGISTICIAN [facility] *SICKLE CELLS Present 05/07/2024 6:33 PM LOGISTICIAN [facility] Blood BLOOD SPECIMEN / Unknown Butterfly / Unknown 05/07/2024 6:20 PM LOGISTICIAN 05/07/2024 6:23 PM LOGISTICIAN Caryn Rasmussen MD HEMATOLOGY Final Result Performing Organization Address City/[facility]/ZIP Co de Phone Number [facility] [address] [place] [address], [place] [phone] * PLATELET ESTIMATE (05/07/2024 6:20 PM LOGISTICIAN) Only the most recent of7 resultswithin the time period is included. PLATELET ESTIMATE Adequate Adequate, No estimate 05/07/2024 6:33 PM LOGISTICIAN [facility] Blood BLOOD SPECIMEN / Unknown Butterfly / Unknown 05/07/2024 6:20 PM LOGISTICIAN 05/07/2024 6:23 PM LOGISTICIAN Caryn Rasmussen MD HEMATOLOGY Final Result Performing Organization Address [facility] Co de Phone Number [facility] [address] [place] [id number], [place] [phone] * (ABNORMAL) CBC W PLT NO DIFF (05/07/2024 6:20 PM LOGISTICIAN) Only the most recent of4 resultswithin the time period is included. WHITE BLOOD COUNT 15.6(H) 4.5 - 11.0 thou/cu mm 05/07/2024 6:33 PM LOGISTICIAN [facility] RED BLOOD COUNT 2.71(L) 4.00 - 5.20 mil/cu mm 05/07/2024 6:33 PM LOGISTICIAN [facility] HEMOGLOBIN 8.7(L) 12.0 - 16.0 g/dL 05/07/2024 6:33 PM LOGISTICIAN [facility] HEMATOCRIT 25.4(L) 33.0 - 51.0 % 05/07/2024 6:33 PM LOGISTICIAN [facility] MCV 94 80 - 100 fL 05/07/2024 6:33 PM LOGISTICIAN [facility] MCH 32.1 26.0 - 34.0 pg 05/07/2024 6:33 PM LOGISTICIAN [facility] MCHC 34.3 32.0 - 36.0 g/dL 05/07/2024 6:33 PM LOGISTICIAN [facility] RDW 23.3(H) 11.5 - 15.5 % 05/07/2024 6:33 PM LOGISTICIAN [facility] PLATELET COUNT 356 140 - 440 thou/cu mm 05/07/2024 6:33 PM LOGISTICIAN [facility] MPV 9.8 6.5 - 11.0 fL 05/07/2024 6:33 PM LOGISTICIAN [facility] NRBC 2.0 % 05/07/2024 6:33 PM LOGISTICIAN [facility] ABS NRBC 0.3 thou /cu mm 05/07/2024 6:33 PM LOGISTICIAN [facility] Blood BLOOD SPECIMEN / Unknown Butterfly / Unknown 05/07/2024 6:20 PM LOGISTICIAN 05/07/2024 6:23 PM LOGISTICIAN Caryn Rasmussen MD HEMATOLOGY Final Result [facility] [address] [place] [address], * (ABNORMAL) RETICULOCYTES (05/07/2024 6:20 PM LOGISTICIAN) Only the most recent of11 resultswithin the time period is included. RETIC% 20.3(H) 0.5 - 1.5 % 05/07/2024 6:34 PM LOGISTICIAN [facility] RETIC (ABSOLUTE) 0.55(H) 0.03 - 0.08 mil/cu mm 05/07/2024 6:34 PM LOGISTICIAN [facility] Blood BLOOD SPECIMEN / Unknown Butterfly / Unknown 05/07/2024 6:20 PM LOGISTICIAN 05/07/2024 6:23 PM LOGISTICIAN Caryn Rasmussen MD HEMATOLOGY Final Result Performing Organization Address City/[facility]/ZIP Co de Phone Number [facility] [address] [place] [phone], * LIPASE (05/07/2024 6:20 PM LOGISTICIAN) Only the most recent of2 resultswithin the time period is included. LIPASE 35.9 13.0 - 60.0 IU/L 05/07/2024 6:53 PM LOGISTICIAN [facility] Blood BLOOD SPECIMEN / Unknown Butterfly / Unknown 05/07/2024 6:20 PM LOGISTICIAN 05/07/2024 6:23 PM LOGISTICIAN Caryn Rasmussen MD CHEMISTRY Final Result Performing Organization Address [facility] Co de Phone Number [facility] [address] [place] [phone], * (ABNORMAL) HEPATIC FUNCTION PANEL (05/07/2024 6:20 PM LOGISTICIAN) Only the most recent of2 resultswithin the time period is included. ALBUMIN 4.4 4.0 - 4.9 g/dL 05/07/2024 6:53 PM LOGISTICIAN [facility] PROTEIN,TOTAL 8.1(H) 6.0 - 8.0 g/dL 05/07/2024 6:53 PM LOGISTICIAN [facility] BILIRUBIN,TOTAL 2.2(H) 0.0 - 1.2 mg/dL 05/07/2024 6:53 PM LOGISTICIAN [facility] BILIRUBIN,DIRECT 0.9(H) 0.0 - 0.2 mg/dL 05/07/2024 6:53 PM LOGISTICIAN [facility] BILIRUBIN,INDIRE CT 1.3(H) 0.2 - 0.8 mg/dL 05/07/2024 6:53 PM LOGISTICIAN [facility] ALK PHOSPHATASE 120(H) 35 - 104 IU/L 05/07/2024 6:53 PM LOGISTICIAN [facility] ALT (SGPT) 28 10 - 35 IU/L 05/07/2024 6:53 PM LOGISTICIAN [facility] AST (SGOT) 46(H) 10 - 35 IU/L 05/07/2024 6:53 PM LOGISTICIAN [facility] Blood BLOOD SPECIMEN / Unknown Butterfly / Unknown 05/07/2024 6:20 PM LOGISTICIAN 05/07/2024 6:23 PM LOGISTICIAN Caryn Rasmussen MD CHEMISTRY Final Result [facility] [place] [address], * CT CHEST PE STUDY (05/04/2024 1:46 AM LOGISTICIAN) Anatomical Region Laterality Modality CHEST, THORAX, HEART Computed To mography 05/04/2024 1:46 AM LOGISTICIAN Impressions 05/04/2024 2:01 AM LOGISTICIAN 1. No pulmonary embolus. 2. Multiple small bilateral pulmonary nodules and mild enlargement of right hilar lymph nodes not significantly changed from the recent study of 04/06/2024. Differential diagnosis includes inflammatory/infectious and neoplastic etiologies. Narrative 05/04/2024 2:01 AM LOGISTICIAN For Patients: As a result of the Century Cures Act, medical imaging exams and procedure reports are released immediately into your electronic medical record. You may view this report before your referring provider. If you have questions, please contact your health care provider. EXAM: CT CHEST PE STUDY LOCATION: [facility] DATE: 05/04/2024 INDICATION: Pulmonary embolism (PE) suspected, [...] EXAM: CT CHEST PE STUDY LOCATION: [facility] DATE: 05/04/2024 INDICATION: Pulmonary embolism (PE) suspected, [...] EXAM REFLEXED PER CRITERIA (05/04/2024 12:07 AM LOGISTICIAN) COLOR Yellow Yellow Color 05/04/2024 12:18 AM [facility] CLARITY Clear Clear Clarity 05/04/2024 12:18 AM [facility] SPECIFIC GRAVITY,URINE 1.015 1.010, 1.015, 1.020, 1.025 05/04/2024 12:18 AM [facility] PH,URINE 7.0 6.0, 7.0, 8.0, 5.5, 6.5, 7.5, 8.5 05/04/2024 12:18 AM [facility] UROBILINOGEN,Q UALITATIVE Normal Normal EU/dl 05/04/2024 12:18 AM [facility] PROTEIN, URINE Negative Negative mg/dL 05/04/2024 12:18 AM [facility] GLUCOSE, URINE Negative Negative mg/dL 05/04/2024 12:18 AM [facility] KETONES,URINE Negative Negative mg/dL 05/04/2024 12:18 AM [facility] BILIRUBIN,URIN E Negative Negative 05/04/2024 12:18 AM [facility] OCCULT BLOOD,URINE Negative Negative 05/04/2024 12:18 AM [facility] NITRITE Negative Negative 05/04/2024 12:18 AM LOGISTICIAN [facility] LEUKOCYTE ESTERASE Negative Negative 05/04/2024 12:18 AM LOGISTICIAN [facility] Urine URINE SPECIMEN / Unknown Non-Blood / Unknown 05/04/2024 12:07 AM LOGISTICIAN 05/04/2024 12:13 AM LOGISTICIAN Anika Mccracken MD URINE Final Resu lt Performing Organization Address City/[facility]/ZIP Co de Phone Number [facility] [address] [place] [phone], * URINE (05/04/2024 12:07 AM LOGISTICIAN) ,URIN E Negative Negative 05/04/2024 12:22 AM LOGISTICIAN [facility] Urine URINE SPECIMEN / Unknown Non-Blood / Unknown 05/04/2024 12:07 AM LOGISTICIAN 05/04/2024 12:13 AM LOGISTICIAN Anika Mccracken MD URINE Final Resu lt Performing Organization Address City/[facility]/ZIP Co de Phone Number [facility] [address] [place] [id number], [place] [phone] * CWS PATH REVIEW HEMATOLOGY (05/03/2024 11:52 PM LOGISTICIAN) PATH COMMENT Comment: 05/06/2024 7:30 AM LOGISTICIAN [facility] Comment:Frequent sickle cell s. Reviewed by Dr. Richar Huffman on 05/05/2024 Blood BLOOD SPECIMEN / Unknown IV Start / Unknown 05/03/2024 11:52 PM LOGISTICIAN 05/03/2024 11:52 PM LOGISTICIAN Anika Mccracken MD LABORATORY Final Resu lt [facility] [address] [place] [address], [place] * (ABNORMAL) MANUAL DIFFERENTIAL (05/03/2024 11:52 PM LOGISTICIAN) Only the most recent of3 resultswithin the time period is included. % NEUTROPHILS 55.0 % 05/04/2024 12:13 AM LOGISTICIAN [facility] % LYMPHOCYTES 33.0 % 05/04/2024 12:13 AM LOGISTICIAN [facility] % MONOCYTES 10.0 % 05/04/2024 12:13 AM LOGISTICIAN [facility] % EOSINOPHILS 2.0 % 05/04/2024 12:13 AM LOGISTICIAN [facility] % BASOPHILS 0.0 % 05/04/2024 12:13 AM LOGISTICIAN [facility] NEUTROPHILS ABSOLUTE 10.6(H) 1.7 - 7.0 thou/cu mm 05/04/2024 12:13 AM LOGISTICIAN [facility] LYMPHOCYTES ABSOLUTE 6.3(H) 0.9 - 2.9 thou/cu mm 05/04/2024 12:13 AM LOGISTICIAN [facility] MONOCYTES ABSOLUTE 1.9(H) <0.9 thou/cu mm 05/04/2024 12:13 AM LOGISTICIAN [facility] EOSINOPHILS ABSOLUTE 0.4 <0.5 thou/cu mm 05/04/2024 12:13 AM LOGISTICIAN [facility] BASOPHILS ABSOLUTE 0.0 <0.3 thou/cu mm 05/04/2024 12:13 AM LOGISTICIAN [facility] Blood BLOOD SPECIMEN / Unknown IV Start / Unknown 05/03/2024 11:52 PM LOGISTICIAN 05/03/2024 11:52 PM LOGISTICIAN us Anika Mccracken MD HEMATOLOGY Final Resu lt [facility] [address] [place] [address], * (ABNORMAL) D-DIMER,QUANTITATIVE (05/03/2024 11:52 PM LOGISTICIAN) Pathologist [facility] D-DIMER,QUANTI TATIVE 1.51(H) <=0.49 FEU mcg/mL 05/04/2024 12:28 AM LOGISTICIAN [facility] Blood BLOOD SPECIMEN / Unknown IV Start / Unknown 05/03/2024 11:52 PM LOGISTICIAN 05/03/2024 11:52 PM LOGISTICIAN Narrative [facility] - 05/04/2024 12:28 AM LOGISTICIAN The cut off value for exclusion of Deep Vein Thrombosis and / or Pulmonary Embolism is 0.50 FEU mcg/mL For patients greater than 50 years of age the upper limit is age dependent and was calculated with the formula: (PATIENT AGE x 0.01) FEU mcg/mL = Upper limit of normal range Anika Mccracken MD HEMATOLOGY Final Resu lt Performing Organization Address City/[facility]/ZIP Co de Phone Number [facility] [address] [place] [phone], * TYPE AND SCREEN ONLY (04/20/2024 4:43 PM LOGISTICIAN) Only the most recent of2 resultswithin the time period is included. ABORH A Rh Positive 04/20/2024 5:20 PM LOGISTICIAN [facility] Comment:Comment: Performed b y [facility], [address] [place] [address] ANTIBODY SCREEN Negative Negative 04/20/2024 5:20 PM LOGISTICIAN [facility] Comment:Comment: Performed b y [facility], [address] [place] [address] SPECIMEN EXPIRATION DATE/TIME 04/23/24 23:59 04/20/2024 5:20 PM LOGISTICIAN [facility] Blood BLOOD SPECIMEN / Unknown Butterfly / Unknown 04/20/2024 4:43 PM LOGISTICIAN 04/20/2024 4:48 PM LOGISTICIAN Maria Teresa SUTTON BLOOD BANK Final Result [facility] [address] [place] [address], [place] [phone] [facility] [address] [place] [address] * XR ANKLE 3 VIEWS LEFT (04/18/2024 5:09 AM LOGISTICIAN) Anatomical Region Laterality Modality ANKLES, ANKLE L Computed Radiogr aphy 04/18/2024 5:09 AM LOGISTICIAN Impressions 04/18/2024 5:11 AM LOGISTICIAN Normal joint spaces and alignment. No fracture. No significant soft tissue swelling. Ankle mortise intact. Narrative 04/18/2024 5:11 AM LOGISTICIAN For Patients: As a result of the [...] ult * C-REACTIVE PROTEIN (04/18/2024 4:59 AM LOGISTICIAN) Only the most recent of3 resultswithin the time period is included. C-REACTIVE PROTEIN <0.3 <0.5 mg/dL 04/18/2024 5:43 AM LOGISTICIAN [facility] Blood BLOOD SPECIMEN / Unknown Butterfly / Unknown 04/18/2024 4:59 AM LOGISTICIAN 04/18/2024 5:02 AM LOGISTICIAN Elizabeth Duffy MD CHEMISTRY Final Res ult Performing Organization Address [facility] Co de Phone Number [facility] [address] [place] [phone], * SEDIMENTATION RATE (04/18/2024 4:58 AM LOGISTICIAN) Only the most recent of3 resultswithin the time period is included. SEDIMENTATION RATE 6 <20 mm/hr 2023 5:17 AM LOGISTICIAN [facility] Blood BLOOD SPECIMEN / Unknown Butterfly / Unknown 04/18/2024 4:58 AM LOGISTICIAN 04/18/2024 5:02 AM LOGISTICIAN Elizabeth Duffy MD HEMATOLOGY Final Res ult Performing Organization Address [facility] Co de Phone Number [facility] [address] [place] [phone], * XR HIP 2 OR 3 VIEWS W PELVIS LEFT (04/15/2024 6:34 PM LOGISTICIAN) Anatomical Region Laterality Modality HIPS, HIPL, Pelvis Computed Radi ography 04/15/2024 6:34 PM LOGISTICIAN Impressions 04/15/2024 6:46 PM LOGISTICIAN No acute fracture or subluxation. Sclerosis of the left femoral head in keeping with osteonecrosis. No articular surface collapse. There is additional patchy sclerosis throughout the pelvis greatest in the right iliac bone which may represent additional osteonecrosis. Hip joint spaces are grossly preserved. 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 Narrative 04/15/2024 6:46 PM LOGISTICIAN For Patients: As a result of the Cures Act, medical imaging exams and procedure reports are released immediately into your electronic medical record. You may view this report before your referring provider. If you have questions, please contact your health care provider. EXAM: XR HIP 2 OR 3 VIEWS W PELVIS LEFT LOCATION: [facility] DATE: 04/15/2024 INDICATION: left hip pain, history [...] 3 VIEWS W PELVIS LEFT LOCATION: [facility] DATE: 04/15/2024 INDICATION: left hip pain, history [...] US ABDOMEN LIMITED GALLBLADDER (04/06/2024 9:38 PM LOGISTICIAN) Anatomical Region Laterality Modality Abdomen Ultrasound 04/06/2024 9:38 PM LOGISTICIAN Impressions 04/06/2024 9:46 PM LOGISTICIAN 1. Cholelithiasis. Otherwise negative. Narrative 04/06/2024 9:46 PM LOGISTICIAN For Patients: As a result of the [...] EXAM: US ABDOMEN LIMITED GALLBLADDER LOCATION: [facility] DATE: 04/06/2024 INDICATION: Right upper quadrant pain [...] (ABNORMAL) COMP METABOLIC PANEL (04/06/2024 8:55 PM LOGISTICIAN) SODIUM 140 136 - 145 mmol/L 04/06/2024 9:20 PM LOGISTICIAN [facility] POTASSIUM 4.5 3.5 - 5.1 mmol/L 04/06/2024 9:20 PM LOGISTICIAN [facility] CHLORIDE 108(H) 98 - 107 mmol/L 04/06/2024 9:20 PM LOGISTICIAN [facility] CO2,TOTAL 21(L) 22 - 29 mmol/L 04/06/2024 9:20 PM LOGISTICIAN [facility] ANION GAP 11 5 - 18 04/06/2024 9:20 PM LOGISTICIAN [facility] GLUCOSE 103(H) 70 - 99 mg/dL 04/06/2024 9:20 PM LOGISTICIAN [facility] CALCIUM 9.6 8.8 - 10.4 mg/dL 04/06/2024 9:20 PM LOGISTICIAN [facility] Comment: Reference ranges for this test were updated on 02/29/2024 to reflect our healthy population more accurately. Reference range changes are not retroactively applied to results, but previous results using the same methodology can be interpreted in the context of the new reference range. BUN 8 6 - 20 mg/dL 04/06/2024 9:20 PM LOGISTICIAN [facility] CREATININE 0.78 0.50 - 0.90 mg/dL 04/06/2024 9:20 PM LOGISTICIAN [facility] BUN/CREAT RATIO 10 10 - 20 9:20 PM LOGISTICIAN [facility] eGFR >90 >90 mL/min/1.7 3m2 04/06/2024 9:20 PM LOGISTICIAN [facility] Comment:As of 2021, eG FR is calculated by the CKD-EPI creatinine equation without race adjustment. eGFR can be influenced by muscle mass, exercise, and diet. The reported eGFR is an estimation only and is only applicable if the renal function is stable. ALBUMIN 4.7 4.0 - 4.9 g/dL 04/06/2024 9:20 PM LOGISTICIAN [facility] PROTEIN,TOTAL 8.6(H) 6.0 - 8.0 g/dL 04/06/2024 9:20 PM LOGISTICIAN [facility] BILIRUBIN,TOTAL 1.6(H) 0.0 - 1.2 mg/dL 04/06/2024 9:20 PM LOGISTICIAN [facility] ALK PHOSPHATASE 124(H) 35 - 104 IU/L 04/06/2024 9:20 PM LOGISTICIAN [facility] ALT (SGPT) 36(H) 10 - 35 IU/L 04/06/2024 9:20 PM LOGISTICIAN [facility] AST (SGOT) 37(H) 10 - 35 IU/L 04/06/2024 9:20 PM LOGISTICIAN [facility] Blood BLOOD SPECIMEN / Unknown Butterfly / Unknown 04/06/2024 8:55 PM LOGISTICIAN 04/06/2024 9:00 PM LOGISTICIAN Tanmay SUTTON CHEMISTRY Final R esult [facility] [place] [address], * TROPONIN T (HS) ACUTE W/2HR REFLEX (04/04/2024 6:54 PM LOGISTICIAN) TROPONIN T HS <6 6-10 ng/L ng/L 04/04/2024 7:31 PM LOGISTICIAN [facility] Blood BLOOD SPECIMEN / Unknown Butterfly / Unknown 04/04/2024 6:54 PM LOGISTICIAN 04/04/2024 6:57 PM LOGISTICIAN Narrative [facility] - 04/04/2024 7:31 PM LOGISTICIAN hs-cTnT (Elecsys Troponin T Gen 5) concentration [...] population. Juhi SUTTON CHEMISTRY Final Re sult [facility] [place] [address], from Last 3 Months Insurance [place] [id number] [facility] Advance Directives * Full Code (Latest Code Status on File) Date Activated Date Inactivated Comments 03/28/2024 10:36 PM 03/30/2024 11:39 AM Question Answer Comments Code Status Discussion: Reviewed Preferences * Full Code Date Activated Date Inactivated Comments 03/16/2024 1:29 AM 03/18/2024 1:58 PM Question Answer Comments Code Status Discussion: Reviewed Preferences Care Teams [employer] Plate [employer]er Relationship Specialty Start Date End Date Veronica Joseph MD [address] [place] [address] PCP - General Family Practice 03/29/24
--- OUTSIDE RECORDS SUMMARY | 2024-07-03 21:30 | XMS_ITS | Encounter Summary ---
Author Organization [facility] Address [address] [place] [address] Care Team Providers Care Concrete Stone Finisher Name Role Phone No Ref-Primary, Physician Primary Care Provider Mor Ramsey Unavailable Unavailable Case Samuel MD Unavailable [phone] Reason for Referral * Diagnostic Imaging MRI (Routine) - Pending Review Specialty Diagnoses / Procedures Referred By Shahid pendleton Referred To Contact Radiology. 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 If you don't hear from a risk control field representative within 2 business days, please call . Additional Information: History of hemoglobin SS disease. History of retinopathy reported from care in [place] but not in a long time. Requesting eye exam for retinopathy Comments Please be aware that coverage of these services is subject to the terms and limitations of your health insurance plan. Call member services at your health plan with any benefit or coverage questions. [facility] will call you to coordinate your care as prescribed by your provider. If you don't hear from a risk control field representative within 2 business days, please call . 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 Requesting eval for further management per ortho's expertise. Scheduling Instructions: [facility] Granulating Machine Operator will call you to coordinate your care as prescribed by your provider. A risk control field representative will call you within 2 business days to help you schedule your appointment, or you may contact the Granulating Machine Operator Automatic Fancy Machine Operator at: . Comments Please be aware that coverage of these services is subject to the terms and limitations of your health insurance plan. Call member services at your health plan with any benefit or coverage questions. [facility] Granulating Machine Operator will call you to coordinate your care as prescribed by your provider. A risk control field representative will call you within 2 business days to help you schedule your appointment, or you may contact the Granulating Machine Operator Automatic Fancy Machine Operator at: . 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 If you don t hear from a risk control field representative within 2 business days, please call . Additional Information: History of symptomatic gallstones due to sickle cell disease. Previous workup in [place], [place] ([facility]) prior to moving here. Was moving towards cholecystectomy but ended up moving sooner. Requesting eval for gallstones. Comments Please be aware that coverage of these services is subject to the terms and limitations of your health insurance plan. Call member services at your health plan with any benefit or coverage questions. [facility] will call you to coordinate your care as prescribed by the provider. If you don t hear from a risk control field representative within 2 business days, please call . KNIFE FOXING CUTTER Reason for Visit * Reason Comments Oncology Clinic Visit Sickle cell pain c risis * Consultation (Urgent: 3-5 Days) - Pending Review Specialty Diagnoses / Procedures Referred By Contac t Referred To Contact Medical Oncology Diagnoses 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 (H) Mor Ramsey Referral ID Status Reason Start Date Expiration Date V isits Requested Visits Authorized [id number] Pending Review 03/28/2024 03/28/2025 1 1 Encounter Details Date Type Department Care Team (Late st Contact Info) Description 05/01/2024 11:00 AM HOT KNIFE FOXING CUTTER Oncology Visit [facility] [address] [place] [address] Case Samuel MD [address] [facility] [address], [address] [place] [address] History of transfusion (Primary Dx); [...] file Legal Sex Female 8:25 AM HOT KNIFE FOXING CUTTER Gender Identity Not on file Sexual Orientation Not on file documented as of this encounter Last Filed Vital Signs Vital Sign Reading Time Taken Comments Blood Pressure 93/62 05/01/2024 10:50 AM HOT KNIFE FOXING CUTTER Pulse 93 05/01/2024 10:50 AM HOT KNIFE FOXING CUTTER Temperature 36.8 C (98.2 F) 05/01/2024 10:50 AM HOT KNIFE FOXING CUTTER Respiratory Rate 16 05/01/2024 10:50 AM HOT KNIFE FOXING CUTTER Oxygen Saturation 98% 05/01/2024 10:50 AM HOT KNIFE FOXING CUTTER Inhaled Oxygen Concentration - - Weight 51 kg (112 lb 6.4 oz) 05/01/2024 10:50 AM HOT KNIFE FOXING CUTTER Height 159.9 cm (5' 2.95) 05/01/2024 10:[address] Body Mass Index 19.94 05/01/2024 10:50 AM HOT KNIFE FOXING CUTTER documented in this encounter Progress Notes * [...] She said that she was born in [place] but moved throughout her childhood because her dad was in the . She is the youngest of 9 children she said, though she is the only one with sickle cell disease. Among other places, she was living in [place] for a time and then moved to [place]. It was there that shemet her boyfriend. She ultimately moved back to [place] and he came with her. It was there that they had a daughter Chanda, now 2 years old. That was a difficult for her, and she feelslike she never wants to be again. She was living in [place], [place] and receiving care at [facility], though she did not get the sense that per diem clerk there was super comfortable with sickle cell [...] about 3 weeks ago. She moved to [place] about 2 months ago. Her boyfriend is [...] worked up for symptomatic gallstones back in [place], but there were some delays in getting a cholecystectomy and by the time it was getting scheduled, they were moving to [place]. She reports that she has had a [...] them both so she can be a [id number] mom. Sickle Cell Disease Comprehensive Checklist Stroke/silent [...] titrate as needed and notify the primary per diem clerk via [employer] message if changes to the plan below are needed. 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 GENERAL APPEARANCE: healthy, alert [...] she knows. Even though she lives in [place], she is very willing to come to the [facility] to get her care and use the [...] around the hip and femur strong. -Orthopedic urgent care nurse practitioner referral placed. Will defer to them for [...] per the note Case Samuel MD Classical Technical Aid Division of Hematology, Oncology, and Transplantation [facility] KNIFE FOXING CUTTER KNIFE FOXING CUTTER documented in this encounter Nursing Notes * [...] Provider was notified. Pharmacy name entered into [employer]: [id number] - [place], [place] - [facility] [place], [place] - [address] [facility] Frailty Screening: Is the patient here for a new oncology consult visit in cancer care? 2. No Clinical concerns: Patient states no new concerns to discuss with provider. Patricia Swan, EMT KNIFE FOXING CUTTER documented in this encounter Plan of Treatment Upcoming Encounters Date Type Department Care Team (Late st Contact Info) Description 07/04/2024 9:00 AM CDT Lab [facility] [address] [phone] Case Samuel MD [address] [place] [address], [address] [address] 07/06/2024 8:[address] 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) Expected: 05/02/2024 (Approximate), Expires: 05/02/2025 Scheduled Referrals Name Type Priority Associated Diagnoses Orde r Schedule Adult GI Granulating Machine Operator Referral - Consult Only Referral Routine: Next available opening 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) Gallstones Expected: 05/01/2024 (Approximate), Expires: 05/01/2025 Orthopedic Granulating Machine Operator Referral Referral Routine: Next available opening 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 Author Pain Management General On track( 025 12:40 PM HOT KNIFE FOXING CUTTER) Yes Juhi Benson RN Note: Goal Statement: [...] Genotype Red Blood Cell (05/29/2024 11:23 AM HOT KNIFE FOXING CUTTER) See Scanned Result GENOTYPE RED BLOOD CELL-Scanned 05/31/2024 10:16 AM HOT KNIFE FOXING CUTTER [facility] Blood VENOUS LINE / Unknown IVAD (Port) / Unknown 05/29/2024 11:23 AM HOT KNIFE FOXING CUTTER 05/29/2024 11:29 AM HOT KNIFE FOXING CUTTER us Case Samuel MD LAB - BLOOD ORDERABLES Fi nal Result [facility] [address] [place] [address], [facility] [phone] * (ABNORMAL) HGB Eval Reflex to ELP or RBC Solubility (05/29/2024 11:23 AM HOT KNIFE FOXING CUTTER) Hemoglobin A 15.0(L) 95.0 - 97.9 % 05/31/2024 2:46 PM HOT KNIFE FOXING CUTTER [facility] Hemoglobin A2 3.0 2.0 - 3.5 % 05/31/2024 2:46 PM HOT KNIFE FOXING CUTTER [facility] Hemoglobin F 10.8(H) 0.0 - 2.1 % 05/31/2024 2:46 PM HOT KNIFE FOXING CUTTER [facility] Hemoglobin S 71.2(H) 0.0 - 0.0 % 05/31/2024 2:46 PM HOT KNIFE FOXING CUTTER [facility] Hemoglobin C 0.0 0.0 - 0.0 % 05/31/2024 2:46 PM HOT KNIFE FOXING CUTTER [facility] Hemoglobin E 0.0 0.0 - 0.0 % 05/31/2024 2:46 PM HOT KNIFE FOXING CUTTER [facility] Hemoglobin - Other 0.0 0.0 - 0.0 % 05/31/2024 2:46 PM HOT KNIFE FOXING CUTTER [facility] Hemoglobin Evaluation See Note 05/31/2024 2:46 PM HOT KNIFE FOXING CUTTER [facility] Comment: Impression: Hb S present [...] Globin (HBA1 and HBA2) Deletion/Duplication ([facility] test #[id number]) should be considered. Hb S/beta-plus thalassemia is typically characterized by more Hb S than Hb A with the presence of microcytosis. If microcytosis is present and Hb S/beta-plus thalassemia is suspected, Beta Globin (HBB) Sequencing ([facility] test #[id number]) is suggested. Hemoglobin analysis should be offered [...] developed and its performance characteristics determined by [facility]. It has not been cleared or approved by the U.S. Food and Drug Administration. This test was performed in a CLIA-certified laboratory and is intended for clinical purposes. Sickle Cell Solubility Reflex Positive(A) 05/31/2024 2:46 PM HOT KNIFE FOXING CUTTER [facility] Comment: INTERPRETIVE INFORMATION: Sickle Cell Solubility Reflex Not Performed: Solubility testing for Hemoglobin S not indicated. 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 Additional charges apply. Conf Previous: Positive for Hemoglobin S by HPLC. Solubility testing performed previously and not repeated with this submission. Hgb Capillary Electrophoresis Reflex Performed 05/31/2024 2:46 PM HOT KNIFE FOXING CUTTER [facility] Comment: INTERPRETIVE INFORMATION: Hgb Capillary Electrophoresis Reflex Not Performed: Confirmation by Capillary Electrophoresis not indicated. Performed: Results confirmed by Capillary Electrophoresis. Additional charges apply. Conf Previous: Capillary Electrophoresis confirmation performed as part of a previous submission. Confirmation not repeated with this submission. Performed By: [facility] [address] [place] [id number] Band Master: Devon Healy MD, PhD CLIA Number: [id number] Blood VENOUS LINE / Unknown IVAD (Port) / Unknown 05/29/2024 11:23 AM HOT KNIFE FOXING CUTTER 05/29/2024 11:30 AM HOT KNIFE FOXING CUTTER Case Samuel MD LAB - BLOOD ORDERABLES nal Result [facility] [employer] [facility] [employer] [address] [place] [phone], [facility] [phone] * (ABNORMAL) Ferritin (05/29/2024 11:23 AM HOT KNIFE FOXING CUTTER) Ferritin 1,559(H) 6 - 175 ng/mL 05/29/2024 12:43 PM HOT KNIFE FOXING CUTTER [facility] Blood VENOUS LINE / Unknown IVAD (Port) / Unknown 05/29/2024 11:23 AM HOT KNIFE FOXING CUTTER 05/29/2024 11:29 AM HOT KNIFE FOXING CUTTER us Case Samuel MD LAB - BLOOD ORDERABLES Fi nal Result [facility] - CORE LAB [facility] [address] [facility] 1st [place] [address] * (ABNORMAL) Routine UA with micro reflex to culture (05/29/2024 11:23 AM HOT KNIFE FOXING CUTTER) Color Urine Yellow Colorless, Straw, Light Yellow, Yellow 05/29/2024 11:41 AM [facility] Appearance Urine Slightly Cloudy(A) Clear 05/29/2024 11:41 AM [facility] Glucose Urine Negative Negative mg/dL 05/29/2024 11:41 AM [facility] Bilirubin Urine Negative Negative 11:41 AM [facility] Ketones Urine Negative Negative mg/dL 05/29/2024 11:41 AM [facility] Specific [place] Urine 1.013 1.003 - 1.035 05/29/2024 11:41 AM [facility] Blood Urine Negative Negative 05/29/2024 11:41 AM [facility] pH Urine 7.0 5.0 - 7.0 05/29/2024 11:41 AM [facility] Protein Albumin Urine Negative Negative mg/dL 05/29/2024 11:41 AM [facility] Urobilinogen Urine Normal Normal, 2.0 mg/dL 05/29/2024 11:41 AM [facility] Nitrite Urine Negative Negative 05/29/2024 11:41 AM [facility] Leukocyte Esterase Urine Moderate(A) Negative 05/29/2024 11:41 AM [facility] Mucus Urine Present(A) None Seen /LPF 05/29/2024 11:41 AM [facility] RBC Urine 6(H) <=2 /HPF 05/29/2024 11:41 AM [facility] WBC Urine 3 <=5 /HPF 05/29/2024 11:41 AM [facility] Squamous Epithelials Urine 18(H) <=1 /HPF 05/29/2024 11:41 AM [facility] Urine URINE SPECIMEN OBTAINED BY CLEAN CATCH PROCEDURE / Unknown Non-blood Collection / Unknown 05/29/2024 11:23 AM HOT KNIFE FOXING CUTTER 05/29/2024 11:29 AM HOT KNIFE FOXING CUTTER Narrative [facility] - 05/29/2024 11:41 AM HOT KNIFE FOXING CUTTER Urine Culture ordered based on laboratory criteria Case Samuel MD LAB - URINE ORDERABLES Fi nal Result [facility] [place] [address] [facility] 1st [place] [address] * (ABNORMAL) Comprehensive metabolic panel (05/29/2024 11:23 AM HOT KNIFE FOXING CUTTER) Sodium 139 135 - 145 mmol/L 05/29/2024 11:58 AM [facility] Potassium 4.2 3.4 - 5.3 mmol/L 05/29/2024 11:58 AM [facility] Carbon Dioxide (CO2) 24 22 - 29 mmol/L 05/29/2024 11:58 AM [facility] Anion Gap 10 7 - 15 mmol/L 05/29/2024 11:58 AM [facility] Urea Nitrogen 9.2 6.0 - 20.0 mg/dL 05/29/2024 11:58 AM [facility] Creatinine 0.75 0.51 - 0.95 mg/dL 05/29/2024 11:58 AM [facility] GFR Estimate >90 >60 mL/min/1.7 3m2 05/29/2024 11:58 AM [facility] Comment:eGFR calculated usin g 2020 CKD-EPI equation. Calcium 8.9 8.8 - 10.4 mg/dL 05/29/2024 11:58 AM [facility] Chloride 105 98 - 107 mmol/L 05/29/2024 11:58 AM [facility] Glucose 109(H) 70 - 99 mg/dL 05/29/2024 11:58 AM [facility] Alkaline Phosphatase 83 40 - 150 U/L 05/29/2024 11:58 AM [facility] AST 49(H) 0 - 45 U/L 05/29/2024 11:58 AM [facility] ALT 21 0 - 50 U/L 05/29/2024 11:58 AM [facility] Protein Total 7.3 6.4 - 8.3 g/dL 05/29/2024 11:58 AM [facility] Albumin 4.1 3.5 - 5.2 g/dL 05/29/2024 11:58 AM [facility] Bilirubin Total 2.2(H) <=1.2 mg/dL 05/29/2024 11:58 AM [facility] Blood VENOUS LINE / Unknown IVAD (Port) / Unknown 05/29/2024 11:23 AM HOT KNIFE FOXING CUTTER 05/29/2024 11:29 AM HOT KNIFE FOXING CUTTER Case Samuel MD LAB - BLOOD ORDERABLES Fi nal Result Performing Organization Address [facility] Co de Phone Number [facility] [address] [place] [address] * (ABNORMAL) Reticulocyte count (05/29/2024 11:23 AM HOT KNIFE FOXING CUTTER) [facility] % Reticulocyte 29.8(H) 0.5 - 2.0 % 05/29/2024 12:00 PM [facility] Absolute Reticulocyte 0.631(H) 0.025 - 0.095 10e6/uL 05/29/2024 12:00 PM HOT KNIFE FOXING CUTTER [facility] Blood VENOUS LINE / Unknown IVAD (Port) / Unknown 05/29/2024 11:23 AM HOT KNIFE FOXING CUTTER 05/29/2024 11:29 AM HOT KNIFE FOXING CUTTER Case Samuel MD LAB - BLOOD ORDERABLES Fi nal Result Performing Organization Address [facility]/ZIP Co de Phone Number [facility] [address] 1st [place] [address] * (ABNORMAL) Vitamin D deficiency screening (04/28/2024 1:50 AM HOT KNIFE FOXING CUTTER) Vitamin D, Total (25-Hydroxy) 8(L) 20 - 50 ng/mL 05/01/2024 6:42 PM HOT KNIFE FOXING CUTTER [facility] Comment:severe deficiency Blood BLOOD SPECIMEN / Unknown Venipuncture / Unknown 04/28/2024 1:50 AM HOT KNIFE FOXING CUTTER 04/28/2024 1:53 AM HOT KNIFE FOXING CUTTER Narrative [facility] - 05/01/2024 6:42 PM HOT KNIFE FOXING CUTTER Season, race, dietary intake, and treatment affect the concentration of 15-lyoxsoi-Pmoqhef D. Values may decrease during winter months and increase during summer months. Vitamin D determination is routinely performed by an immunoassay specific for 25 hydroxyvitamin D3. If an individual is on vitamin D2(ergocalciferol) supplementation, please specify 25 [place] vitamin D2 and D3 level determination by LCMSMS test VITD23. us Case Samuel MD LAB - BLOOD ORDERABLES Fi nal Result [facility] [place] [facility] [address] [facility], [address] [place] [address], [facility] documented in this encounter Visit Diagnoses [...] Out COVID-19 05/08/2024 05/08/2024 05/08/2024 8:18 PM HOT KNIFE FOXING CUTTER Rule Out COVID-19 05/16/2024 05/16/2024 05/16/2024 10:46 PM HOT KNIFE FOXING CUTTER documented as of this encounter Care Teams Concrete Stone Finisher Relationship Specialty Start Date End Date No Ref-Primary, Physician PCP - General 03/15/24 06/17/24 Mor Ramsey Medical Student 04/03/24 Case Samuel MD [address] [place] [address], [address] [place] [address] Assigned Pediatric Specialist Provider 05/18/24 documented as of this encounter
--- OUTSIDE RECORDS SUMMARY | 2024-07-03 21:30 | XMS_ITS | Encounter Summary ---
Author Organization [place] Address [address] [place] [address]. [place] [address] Care Team Providers Care Wicker Molded Candles Name Role Phone RoxyElvirac Unavailable Unavailable Case Samuel MD Unavailable [phone] Juhi Benson RN Unavailable Unavailable Veronica Joseph MD Primary Care Provider [phone] Reason for Visit * Reason Onset Date Comments Refill Request 06/29/2024 Encounter Details Date Type Department Care Team (Late st Contact Info) Description 06/29/[address] [place] [address] Case Samuel MD [address] [place] [address] 484, [address] [place], [place] [id number] Refill Request Social History Tobacco Use Types [...] file Legal Sex Female 8:25 AM CONCRETE MIXING PLANT SUPERINTENDENT Gender Identity Not on file Sexual [...] and by whom: 06/15/[address] Samuel CHIEF RESOURCE OFFICER Reviewed: no access Send to provider: Dr. Samuel and ESTEVAN Reynaga. RETE MIXING PLANT SUPERINTENDENT documented in this encounter Plan of Treatment Upcoming Encounters Date Type Department Care Team (Late st Contact Info) Description 07/04/2024 9:00 AM CDT Lab [facility] [address] [place] [phone] Case Samuel MD [address] [facility] 484, [address] [place] [address] 07/06/2024 8:00 AM CDT Appointment [facility] [place] [address] [place] [phone] Case Samuel MD 420 [facility] 484, [address] [place], [place] [id number] 07/10/2024 11:30 AM CDT Oncology Visit [facility] [address] [phone] Case Samuel MD [address] [place] [address], [address] [place], [place] [address] documented as of this encounter Goals Goal Patient Goal Type Associated Problems Recent Progress Patient-Stated? Author Pain Management General On track( 025 12:40 PM CONCRETE MIXING PLANT SUPERINTENDENT) Yes Juhi Benson, RN Note: Goal Statement: [...] crisis documented in this encounter Care Teams Wicker Molded Candles Relationship Specialty Start Date End Date Veronica Joseph MD [address] [place] [address] PCP - General Family Medicine 06/18/24 Mor Ramsey Medical Student 04/03/24 Case Samuel MD [address] [place] [address], [address] [place], [place] [phone] Assigned Pediatric Specialist Provider 05/18/24 Juhi Benson, RN Specialty Artillery Meteorological Man Hematology & Oncology 05/29/24 documented as of this encounter
--- OUTSIDE RECORDS SUMMARY | 2024-07-03 21:31 | XMS_ITS | Encounter Summary ---
Author Organization [place] Address [address] [place] [address]. [place] [address] Care Team Providers Care Projects Manager Name Role Phone No Ref-Primary, Physician Primary Care Provider Mor Ramsey Unavailable Unavailable Case Samuel MD Unavailable [phone] Encounter Details Date Type Department Care Team [...] on file Legal Sex Female 8:25 AM CORPORATE COMPLIANCE OFFICER Gender Identity Not on file Sexual Orientation Not on file documented as of this encounter Plan of Treatment Upcoming Encounters Date Type Department Care Team (Late st Contact Info) Description 07/04/2024 9:00 AM CDT Lab [facility] [address] [phone] Case Samuel MD [address] [place] [address], ROOM [address] [id number] 07/06/2024 8:00 AM CDT Appointment [facility] Treatment [address] [phone] Case Samuel MD [address] [place], [place] [address], [address] [place], [place] [address] 07/10/2024 11:30 AM CDT Oncology Visit [facility] [address] [phone] Case Samuel MD [address] [place], [place] [address], ROOM [address] [id number] documented as of this encounter Goals Goal Patient Goal Type Associated Problems Recent Progress Patient-Stated? Author Pain Management General On track( 025 12:40 PM CORPORATE COMPLIANCE OFFICER) Yes Juhi Benson, RN Note: Goal [...] on filedocumented in this encounter Care Teams Projects Manager Relationship Specialty Start Date End Date No Ref-Primary, Physician PCP - General 03/15/24 06/17/24 Mor Ramsey Medical Student 04/03/24 Case Samuel MD [address] [place] [address] 484, [address] [place] [address] Assigned Pediatric Specialist Provider 05/18/24 documented as of this encounter
--- OUTSIDE RECORDS SUMMARY | 2024-07-03 21:31 | XMS_ITS | Encounter Summary ---
Author Organization [place] Address [address] [place] [address]. [place] [address] Care Team Providers Care Superintendent House Name Role Phone No Ref-Primary, Physician Primary Care Provider Mor Ramsey Unavailable Unavailable Case Samuel MD Unavailable [phone] Encounter Details Date Type Department Care Team [...] on file Legal Sex Female 8:25 AM PERSONNEL CONSULTANT Gender Identity Not on file Sexual Orientation Not on file documented as of this encounter Plan of Treatment Upcoming Encounters Date Type Department Care Team (Late st Contact Info) Description 07/04/2024 9:00 AM CDT Lab [facility] Cancer [address] [phone] Case Samuel MD [address] [place] [address], RO[address] [phone] 07/06/2024 8:00 AM CDT Appointment [facility] Advanced Treatment [address] [phone] Case Samuel MD [address] [place], [place] [address], [address] [place], [place] [address] 07/10/2024 11:30 AM CDT Oncology Visit [facility] Cancer [address] [phone] Case Samuel MD [address] [place], [place] [address], ROOM [address] [phone] documented as of this encounter Goals Goal Patient Goal Type Associated Problems Recent Progress Patient-Stated? Author Pain Management General On track( 025 12:40 PM PERSONNEL CONSULTANT) Yes Juhi Benson, RN Note: Goal [...] on filedocumented in this encounter Care Teams Superintendent House Relationship Specialty Start Date End Date No Ref-Primary, Physician PCP - General 03/15/24 06/17/24 Mor Ramsey Medical Student 04/03/24 Case Samuel MD [address] [place] [address], [address] [place] [address] Assigned Pediatric Specialist Provider 05/18/24 documented as of this encounter
--- OUTSIDE RECORDS SUMMARY | 2024-07-03 21:31 | XMS_ITS | Encounter Summary ---
Author Organization [place] Address [address] [place] [address] Care Team Providers Care Loss Control Representative Name Role Phone No Ref-Primary, Physician Primary Care Provider Mor Ramsey Unavailable Unavailable Case Samuel MD Unavailable [phone] Reason for Visit * Reason Comments Sickle Cell Pain Crisis Encounter Details Date Type Department Care Team (Late st Contact Info) Description 05/19/2024 2:10 AM GUN REPAIR CLERK - 05/19/2024 6:06 AM [facility] Emergency [facility] Emergency Room [facility] [place] [address] Marilia Summers MD [address] [place] [id number] Sickle cell disease with crisis (H) Discharge [...] on file Legal Sex Female 8:25 AM GUN REPAIR CLERK Gender Identity Not on file Sexual Orientation Not on file documented as of this encounter Last Filed Vital Signs Vital Sign Reading Time Taken Comments Blood Pressure 110/60 05/19/2024 5:30 AM GUN REPAIR CLERK Pulse 89 05/19/2024 5:30 AM GUN REPAIR CLERK Temperature 36.9 C (98.4 F) 05/19/2024 2:16 AM GUN REPAIR CLERK Respiratory Rate 16 05/19/2024 2:16 AM GUN REPAIR CLERK Oxygen Saturation 95% 05/19/2024 5:30 AM GUN REPAIR CLERK Inhaled Oxygen Concentration - - Weight 51.7 kg (114 lb) 05/19/2024 2:16 AM GUN REPAIR CLERK Height 160 cm (5' 3) 05/19/2024 2:16 AM GUN REPAIR CLERK Body Mass Index 20.19 05/19/2024 2:16 AM GUN REPAIR CLERK documented in this encounter Discharge Instructions * Discharge Instructions* Marilia Summers MD - 05/19/2024 6:02 AM GUN REPAIR CLERK Keep your hematology appointment for the third. Talk with your oncologist about your pain control and what you should do about it while you wait for that appointment. Also you are still a bit more anemic than your geological drafter would like. REPAIR CLERK * Attachments The following attachments cannot be sent through Care Everywhere. * Sickle Cell Crisis (Singaporean) documented in this encounter Medications at Time [...] sleep. 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 C/o 10 generalized back pain Triage Assessment [...] Senna PRN 0309 I reviewed the [facility] database for prescriptions. Her last [...] still a bit more anemic than her geological drafter would like and so I encouraged her [...] history is provided by the patient. No oxyhydrogen welder was used. Gianna Hernández is a 29 [...] hCG Serum Qualitative Negative Negative Narrative Lot#: [id number] Exp: 2025-09-28 CBC with platelets and differential [...] Status --------- ------ CBC with platelets and d...[[id number]] Abnormal Final result Manual Differential[[id number]] Abnormal Final result Please view results for these tests on the individual orders. [facility] System Documentation [...] with other provider:Did you involve another provider (behavioral consultant, , pharmacy, etc.)?: I discussed the [...] my direction. Marilia Summers MD Emergency Medicine [facility] EMERGENCY ROOM Marilia Summers MD 05/19/24 0607 REPAIR CLERK * Moy Stewart RN - 05/19/2024 2:18 AM CST To ED per POV C/o being in sickle cell crisis which awoke her from sleep. 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 C/o 9/10 generalized back pain Triage Assessment (Adult) Row Name 05/19/24 0217 Triage Assessment Airway WDL WDL Respiratory WDL Respiratory WDL WDL Skin Circulation/Temperature WDL Skin Circulation/Temperature WDL WDL Cardiac WDL Cardiac WDL rhythm Pulse Rate & Regularity tachycardic Peripheral/Neurovascular WDL Peripheral Neurovascular WDL WDL Cognitive/Neuro/Behavioral WDL Cognitive/Neuro/Behavioral WDL WDL REPAIR CLERK documented in this encounter Plan of Treatment Upcoming Encounters Date Type Department Care Team (Late st Contact Info) Description 07/04/2024 9:00 AM CDT Lab [facility] Cancer [address] [phone] Case Samuel MD [address] [place], [place] [address], ROOM [address] [phone] 07/06/2024 8:00 AM CDT Appointment [facility] Advanced Treatment [address] [phone] Case Samuel MD [address] [place], [place] [address], [address] [place], [place] [address] 07/10/2024 11:30 AM CDT Oncology Visit [facility] [address] [phone] Case Samuel MD [address] [place] [address], [address] [address] documented as of this encounter Goals Goal Patient Goal Type Associated Problems Recent Progress Patient-Stated? Author Pain Management General On track( 025 12:40 PM GUN REPAIR CLERK) Yes Juhi Benson, SOFIA Note: Goal [...] MANUAL DIFFERENTIAL STAT 05/19/2024 3 :05 AM GUN REPAIR CLERK CBC WITH PLATELETS AND DIFFERENTIAL STAT 05/19/2024 3:05 AM GUN REPAIR CLERK CBC WITH PLATELETS & DIFFERENTIAL STAT 05/19/2024 3:05 AM GUN REPAIR CLERK RETICULOCYTE COUNT STAT 05/19/2024 3: 05 AM GUN REPAIR CLERK HEPATIC FUNCTION PANEL STAT 05/19/2024 3:05 AM GUN REPAIR CLERK HCG QUALITATIVE STAT 05/19/2024 3:05 AM GUN REPAIR CLERK CK TOTAL STAT 05/19/2024 3:05 AM GUN REPAIR CLERK BASIC METABOLIC PANEL STAT 05/19/2024 3:05 AM GUN REPAIR CLERK documented in this encounter Results * (ABNORMAL) Manual Differential (05/19/2024 3:05 AM GUN REPAIR CLERK) % Neutrophils 66 % JARET 05/19/2024 4:12 AM GUN REPAIR CLERK [facility] % Lymphocytes 19 % JARET 05/19/2024 4:12 AM GUN REPAIR CLERK [facility] % Monocytes 11 % JARET 05/19/2024 4:12 AM GUN REPAIR CLERK [facility] % Eosinophils 2 % JARET 05/19/2024 4:12 AM GUN REPAIR CLERK [facility] % Basophils 2 % JARET 05/19/2024 4:12 AM [facility] Absolute Neutrophils 9.6(H) 1.6 - 8.3 10e3/uL AJ[facility] 05/19/2024 4:12 AM GUN REPAIR CLERK [facility] Absolute Lymphocytes 2.8 0.8 - 5.3 10e3/uL JARET 05/19/2024 4:12 AM GUN REPAIR CLERK [facility] Absolute Monocytes 1.6(H) 0.0 - 1.3 10e3/uL JARET 05/19/2024 4:12 AM [facility] Absolute Eosinophils 0.3 0.0 - 0.7 10e3/uL [facility] 05/19/2024 4:12 AM [facility] Absolute Basophils 0.3(H) 0.0 - 0.2 10e3/uL [facility] 05/19/2024 4:12 AM [facility] RBC Morphology Confirmed RBC Indices [facility] 05/19/2024 4:12 AM [facility] Platelet Assessment Automated Count Confirmed. Platelet morphology is normal. Automated Count Confirmed. Platelet morphology is normal. [facility] 05/19/2024 4:12 AM [facility] Elliptocytes Slight(A) None Seen [facility] 05/19/2024 4:12 AM [facility] RBC Fragments Rare(A) None Seen [facility] 05/19/2024 4:12 AM [facility] Polychromasia Slight(A) None Seen [facility] 05/19/2024 4:12 AM [facility] Sickle Cells Slight(A) None Seen [facility] 05/19/2024 4:12 AM [facility] Target Cells Slight(A) None Seen [facility] 05/19/2024 4:12 AM [facility] Blood VENOUS LINE / Unknown Venipuncture / Unknown 05/19/2024 3:05 AM [facility] 05/19/2024 3:18 AM [facility] us Marilia Summers MD LAB - BLOOD ORDERABLES Final Result [facility] [address] [facility] [place] [address], [facility] * (ABNORMAL) CBC with platelets and differential (05/19/2024 3:05 AM [facility]) [facility] WBC Count 14.5(H) 4.0 - 11.0 10e3/uL 05/19/2024 4:12 AM [facility] RBC Count 2.45(L) 3.80 - 5.20 10e6/uL 05/19/2024 4:12 AM [facility] Hemoglobin 7.7(L) 11.7 - 15.7 g/dL 05/19/2024 4:12 AM [facility] Hematocrit 22.7(L) 35.0 - 47.0 % 05/19/2024 4:12 AM [facility] MCV 93 78 - 100 fL 05/19/2024 4:12 AM [facility] MCH 31.4 26.5 - 33.0 pg 05/19/2024 4:12 AM [facility] MCHC 33.9 31.5 - 36.5 g/dL 05/19/2024 4:12 AM [facility] RDW 23.0(H) 10.0 - 15.0 % 05/19/2024 4:12 AM [facility] Platelet Count 518(H) 150 - 450 10e3/uL 05/19/2024 4:12 AM [facility] Blood VENOUS LINE / Unknown Venipuncture / Unknown 05/19/2024 3:05 AM GUN REPAIR CLERK 05/19/2024 3:18 AM GUN REPAIR CLERK Marilia Summers MD LAB - BLOOD ORDERABLES Final Result Performing Organization Address [facility] de Phone Number [facility] [address] [place], [place] [address] [place] [address], [facility] * HCG QUALitative (blood) (05/19/2024 3:05 AM GUN REPAIR CLERK) hCG Serum Qualitative Negative Negative JARET 05/19/2024 3:29 AM [facility] Comment:This test is for scr eening purposes. Results should be interpreted along with the clinical picture. Confirmation testing is available if warranted by ordering [id number], HCG Quantitative . Blood VENOUS LINE / Unknown Venipuncture / Unknown 05/19/2024 3:05 AM GUN REPAIR CLERK 05/19/2024 3:18 AM GUN REPAIR CLERK Narrative [facility] - 05/19/2024 3:29 AM GUN REPAIR CLERK Lot#: [id number] Exp: 2025-09-28 Marilia Summers MD LAB - BLOOD ORDERABLES Final Result Performing Organization Address [facility]/ZIP Co de Phone Number [facility] [address] [place] [address] [place] [address], [place] * (ABNORMAL) CK total (05/19/2024 3:05 AM GUN REPAIR CLERK) CK 240(H) 26 - 192 U/L 05/19/2024 3:37 AM [facility] Blood VENOUS LINE / Unknown Venipuncture / Unknown 05/19/2024 3:05 AM GUN REPAIR CLERK 05/19/2024 3:18 AM GUN REPAIR CLERK us Marilia Summers MD LAB - BLOOD ORDERABLES Final Result Performing Organization Address [facility] Co de Phone Number [facility] [address] [facility] [address] [place], [place] [address], [place] * (ABNORMAL) Hepatic function panel (05/19/2024 3:05 AM GUN REPAIR CLERK) Pathologist [facility] [place] Protein Total 7.9 6.4 - 8.3 g/dL 05/19/2024 3:37 AM [facility] Albumin 4.3 3.5 - 5.2 g/dL 05/19/2024 3:37 AM [facility] Bilirubin Total 2.6(H) <=1.2 mg/dL 05/19/2024 3:37 AM [facility] Alkaline Phosphatase 128 40 - 150 U/L 05/19/2024 3:37 AM [facility] AST 67(H) 0 - 45 U/L 05/19/2024 3:37 AM [facility] ALT 39 0 - 50 U/L 05/19/2024 3:37 AM [facility] Bilirubin Direct 0.65(H) 0.00 - 0.30 mg/dL 05/19/2024 3:37 AM [facility] Blood VENOUS LINE / Unknown Venipuncture / Unknown 05/19/2024 3:05 AM GUN REPAIR CLERK 05/19/2024 3:18 AM GUN REPAIR CLERK us Marilia Summers MD LAB - BLOOD ORDERABLES Final Result Performing Organization Address City/[facility]/ZIP Co de Phone Number [facility] [address] [place] [address], [place] * (ABNORMAL) Basic metabolic panel (05/19/2024 3:05 AM GUN REPAIR CLERK) Pathologist [facility] Sodium 137 135 - 145 mmol/L 05/19/2024 3:37 AM [facility] Potassium 4.2 3.4 - 5.3 mmol/L 05/19/2024 3:37 AM [facility] Chloride 107 98 - 107 mmol/L 05/19/2024 3:37 AM [facility] Carbon Dioxide (CO2) 20(L) 22 - 29 mmol/L 05/19/2024 3:37 AM [facility] Anion Gap 10 7 - 15 mmol/L 05/19/2024 3:37 AM [facility] Urea Nitrogen 11.2 6.0 - 20.0 mg/dL 05/19/2024 3:37 AM [facility] Creatinine 0.81 0.51 - 0.95 mg/dL 05/19/2024 3:37 AM [facility] GFR Estimate >90 >60 mL/min/1.7 3m2 05/19/2024 3:37 AM [facility] Comment:eGFR calculated usin g 2020 CKD-EPI equation. Calcium 9.1 8.8 - 10.4 mg/dL 05/19/2024 3:37 AM [facility] Comment:Reference intervals for this test were updated on 11/09/2023 to reflect our healthy population more accurately. There may be differences in the flagging of prior results with similar values performed with this method. Those prior results can be interpreted in the context of the updated reference intervals. Glucose 99 70 - 99 mg/dL 05/19/2024 3:37 AM [facility] Blood VENOUS LINE / Unknown Venipuncture / Unknown 05/19/2024 3:05 AM GUN REPAIR CLERK 05/19/2024 3:18 AM [facility] us Marilia Summers MD LAB - BLOOD ORDERABLES Final Result [facility] [address] [facility] [place] [address], [facility] * (ABNORMAL) Reticulocyte count (05/19/2024 3:05 AM [facility]) Pathologist [facility] [place] % Reticulocyte 23.3(H) 0.5 - 2.0 % 05/19/2024 3:47 AM GUN REPAIR CLERK [facility] Absolute Reticulocyte 0.550(H) 0.025 - 0.095 10e6/uL 05/19/2024 3:47 AM GUN REPAIR CLERK [facility] Blood VENOUS LINE / Unknown Venipuncture / Unknown 05/19/2024 3:05 AM GUN REPAIR CLERK 05/19/2024 3:18 AM GUN REPAIR CLERK us Marilia Summers MD LAB - BLOOD ORDERABLES Final Result [facility] [address] [facility] [place] [address], [facility] documented [...] For 1 dose $Given 05/19/2024 3:10 AM GUN REPAIR CLERK 25 mg diphenhydrAMINE (BENADRYL) injection 25 mg 25 mg, Intravenous, ONCE, On Wed05/19/24 at 0530, For 1 dose $Given 05/19/2024 5:17 AM GUN REPAIR CLERK 25 mg HYDROmorphone (DILAUDID) injection 2 mg 2 mg, Intravenous, EVERY 1 HOUR PRN, moderate pain, Starting on Wed05/19/24 at 0241, For 3 doses $Given 05/19/2024 5:30 AM GUN REPAIR CLERK 2 mg $Given 05/19/2024 4:19 AM GUN REPAIR CLERK 2 mg $Given 05/19/2024 3:10 AM GUN REPAIR CLERK 2 mg lactated ringers BOLUS 1,000 mL Intravenous, 1,000 mL, ONCE, at 500 mL/hr, Administer over 2 Hours, On Wed05/19/24 at 0300, For 1 dose Rate/Dose Verify 05/19/2024 4:24 AM GUN REPAIR CLERK 500 mL/hr $New Bag 05/19/2024 3:15 AM GUN REPAIR CLERK 1,000 mLs 500 mL/hr ondansetron (ZOFRAN) injection 8 mg 8 mg, Intravenous, ONCE, Administer over 2-5 Minutes, On Wed05/19/24 at 0530, For 1 dose $Given 05/19/2024 5:17 AM GUN REPAIR CLERK 8 mg documented in this encounter Active and Recently Administered Medications Times are shown in GUN REPAIR CLERK. Scheduled Medication Order 05/17/2024 05/18/2024 05/19/2024 diphenhydrAMINE [...] dose 0517 ($Given - Provi nas: Cj Setwart RN) PRN Medication Order 05/17/2024 05/18/2024 05/19/2024 HYDROmorphone (DILAUDID) injection 2 mg (COMPLETED) 2 mg, Intravenous, EVERY 1 HOUR PRN, moderate pain, Starting on Wed05/19/24 at 0241, For 3 doses 0310 ($Given - Provi nas: Cj Stewart RN)0419 ($Given - Provider: Cj Stewart RN)0530 ($Given - Provider: Cj Stewart RN) documented in this encounter Care Teams Loss Control Representative Relationship Specialty Start Date End Date No Ref-Primary, Physician PCP - General 03/15/24 06/17/24 Mor Ramsey Medical Student 04/03/24 Case Samuel MD [address] [place] [address] 484, [address] [place] [address] Assigned Pediatric Specialist Provider 05/18/24 documented as of this encounter
--- OUTSIDE RECORDS SUMMARY | 2024-07-03 21:31 | XMS_ITS | Encounter Summary ---
Author Organization [facility] Address [address] [place] [address]. [place] [address] Care Team Providers Care Django Developer Name Role Phone No Ref-Primary, Physician Primary Care Provider Mor Ramsey Unavailable Unavailable Case Samuel MD Unavailable [phone] Juhi Benson RN Unavailable Unavailable Encounter Details [...] on file Legal Sex Female 8:25 AM WELDER ASSISTANT Gender Identity Not on file Sexual Orientation Not on file documented as of this encounter Plan of Treatment Upcoming Encounters Date Type Department Care Team (Late st Contact Info) Description 07/04/2024 9:00 AM CDT Lab [facility] Cancer [address] [phone] Case Samuel MD [address] [place], [place] [address], ROOM [address] [id number] 07/06/2024 8:00 AM CDT Appointment [facility] Advanced Treatment [address] [phone] Case Samuel MD [address] [place] [address], [address]OM [address] [address] 07/10/2024 11:30 AM CDT Oncology Visit [facility] Cancer [address] [phone] Case Samuel MD [address] [place] [address], ROOM [address] [address] documented as of this encounter Goals Goal Patient Goal Type Associated Problems Recent Progress Patient-Stated? Author Pain Management General On track( 025 12:40 PM WELDER ASSISTANT) Yes Juhi Benson, RN Note: Goal [...] on filedocumented in this encounter Care Teams Django Developer Relationship Specialty Start Date End Date No Ref-Primary, Physician PCP - General 03/15/24 06/17/24 Mor Ramsey Medical Student 04/03/24 Case Samuel MD [address] [place] [address], [address] [place] [address] Assigned Pediatric Specialist Provider 05/18/24 Juhi Benson, RN Specialty Loose Hand Packer Hematology & Oncology 05/29/24 documented as of this encounter
--- OUTSIDE RECORDS SUMMARY | 2024-07-03 21:31 | XMS_ITS | Encounter Summary ---
Author Organization [place] Address [address] [place] [address] Care Team Providers Care Campus Monitor Name Role Phone No Ref-Primary, Physician Primary Care Provider Mor Ramsey Unavailable Unavailable Case Samuel MD Unavailable [phone] Reason for Visit * Reason Onset Date Comments Refill Request 05/22/2024 Encounter Details Date Type Department Care Team ([facility] st Contact Info) Description 05/22/2024 MyC Refill [facility] [address] [place] [address] Case Samuel MD [address] [place] [address], [address] [place] [address] Refill Request Social History Tobacco [...] file Legal Sex Female 8:25 AM PROGRAMMING INTERN Gender Identity Not on file Sexual Orientation [...] and by whom: Dr. Samuel on 05/01/2024 CODING ANALYST Reviewed: Yes Send to provider: Dr. Samuel and ESTEVAN Reynaga . RAMMING INTERN documented in this encounter Plan of Treatment Upcoming Encounters Date Type Department Care Team (Late st Contact Info) Description 07/04/2024 9:00 AM CDT Lab [facility] [address] [phone] Case Samuel MD [address] [place] [address], [address] [place], [place] [address] 07/06/2024 8:00 AM CDT Appointment [facility] Advanced Treatment [address] [phone] Case Samuel MD [address] [place] [address], [address] [place], [place] [address] 07/10/2024 11:30 AM CDT Oncology Visit [facility] [address] [phone] Case Samuel MD [address] [place], [place] [address], [address] [place], [place] [address] documented as of this encounter Goals Goal Patient Goal Type Associated Problems Recent Progress Patient-Stated? Author Pain Management General On track( 025 12:40 PM PROGRAMMING INTERN) Yes Juhi Benson, SOFIA Note: Goal Statement: [...] crisis documented in this encounter Care Teams Campus Monitor Relationship Specialty Start Date End Date No Ref-Primary, Physician PCP - General 03/15/24 06/17/24 Mor Ramsey Medical Student 04/03/24 Case Samuel MD [address] [place] [address], [address] [place] [address] Assigned Pediatric Specialist Provider 05/18/24 documented as of this encounter
--- OUTSIDE RECORDS SUMMARY | 2024-07-03 21:31 | XMS_ITS | Encounter Summary ---
Author Organization [place] Address [address] [place] [address]. [place] [address] Care Team Providers Care Private Branch Exchange Service Adviser Name Role Phone No Ref-Primary, Physician Primary [...] on file Legal Sex Female 8:25 AM BRINE PLANT OPERATOR Gender Identity Not on file Sexual Orientation Not on file documented as of this encounter Plan of Treatment Upcoming Encounters Date Type Department Care Team (Late st Contact Info) Description 07/04/2024 9:00 AM CDT Lab [facility] Cancer [address] [address] Case Samuel MD [address] [place] [address], ROOM [address] [id number] 07/06/2024 8:00 AM CDT Appointment [facility] Advanced Treatment [address] [phone] Case Samuel MD [address] [place], [place] [address], [address] [place], [place] [address] 07/10/2024 11:30 AM CDT Oncology Visit [facility] Cancer [address] [address] Case Samuel MD [address] [place], [place] [address], ROOM [address] [phone] documented as of this encounter Goals Goal Patient Goal Type Associated Problems Recent Progress Patient-Stated? Author Pain Management General On track( 025 12:40 PM BRINE PLANT OPERATOR) Yes Juhi Benson, RN Note: Goal [...] on filedocumented in this encounter Care Teams Private Branch Exchange Service Adviser Relationship Specialty Start Date End Date No Ref-Primary, Physician PCP - General 03/15/24 06/17/24 Mor Ramsey Medical Student 04/03/24 Case Samuel MD [address] [place] [address], [address] [place] [address] Assigned Pediatric Specialist Provider 05/18/24 documented as of this encounter
--- OUTSIDE RECORDS SUMMARY | 2024-07-03 21:31 | XMS_ITS | Encounter Summary ---
Author Organization [place] Address [address] [place] [address]. [place] [address] Care Team Providers Care Community Chest Officer Name Role Phone No Ref-Primary, Physician Primary Care Provider Mor Ramsey Unavailable Unavailable Case Samuel MD Unavailable [phone] Encounter Details Date Type Department Care Team [...] file Legal Sex Female 8:25 AM DIRECTOR EMPLOYMENT Gender Identity Not on file Sexual Orientation Not on file documented as of this encounter Plan of Treatment Upcoming Encounters Date Type Department Care Team (Late st Contact Info) Description 07/04/2024 9:00 AM CDT Lab [facility] Cancer [address] [phone] Case Samuel MD [address] [place] [address], [address] [address] 07/06/2024 8:00 AM CDT Appointment [facility] Advanced Treatment [address] [phone] Case Samuel MD [address] [place], [place] [address], [address] [place], [place] [address] 07/10/2024 11:30 AM CDT Oncology Visit [facility] [address] [phone] Case Samuel MD [address] [place], [place] [address], ROOM [address] [phone] documented as of this encounter Goals Goal Patient Goal Type Associated Problems Recent Progress Patient-Stated? Author Pain Management General On track( 025 12:40 PM DIRECTOR EMPLOYMENT) Yes Juhi Benson, RN Note: Goal Statement: [...] on filedocumented in this encounter Care Teams Community Chest Officer Relationship Specialty Start Date End Date No Ref-Primary, Physician PCP - General 03/15/24 06/17/24 Mor Ramsey Medical Student 04/03/24 Case Samuel MD [address] [place] [address], [address] [place] [address] Assigned Pediatric Specialist Provider 05/18/24 documented as of this encounter
--- OUTSIDE RECORDS SUMMARY | 2024-07-03 21:31 | XMS_ITS | Encounter Summary ---
Author Organization [place] Address [address] [place] [address]. [place] [address] Care Team Providers Care Real Estate Officer Name Role Phone No Ref-Primary, Physician Primary Care Provider Mor Ramsey Unavailable Unavailable Case Samuel MD Unavailable [phone] Reason for Visit * Reason Comments Chest Pain Encounter Details Date Type Department Care Team (Late st Contact Info) Description 05/27/2024 11:58 AM ACID BATH MIXER - 05/27/2024 6:07 PM [facility] Emergency [facility] Emergency Room [facility] [place] [phone] Blas Mcclellan MD [address] [place] [address] Marly Gross, DO [facility] [address] [place] [address] Sickle cell disease with crisis (H) Discharge [...] on file Legal Sex Female 8:25 AM ACID BATH MIXER Gender Identity Not on file Sexual Orientation Not on file documented as of this encounter Last Filed Vital Signs Vital Sign Reading Time Taken Comments Blood Pressure 123/76 05/27/2024 5:15 PM ACID BATH MIXER Pulse 97 05/27/2024 5:15 PM ACID BATH MIXER Temperature 36.9 C (98.5 F) 05/27/2024 11:57 AM ACID BATH MIXER Respiratory Rate 24 05/27/2024 5:37 PM ACID BATH MIXER Oxygen Saturation 96% 05/27/2024 5:15 PM ACID BATH MIXER Inhaled Oxygen Concentration - - Weight 51.7 kg (114 lb) 05/27/2024 11:56 AM ACID BATH MIXER Height 154.9 cm (5' 1) 05/27/2024 11:56 AM ACID BATH MIXER Body Mass Index 21.54 05/27/2024 11:56 AM ACID BATH MIXER documented in this encounter Discharge Instructions * Attachments The following attachments cannot be sent through Care Everywhere. * Sickle Cell Crisis (Lithuanian) documented in this encounter Medications at Time [...] Hemoglobin 7.1. [facility] Additional ED Course Timeline: 5:01 PM I introduced myself to the patient. She would like her last dose of dilaudid per care plan and is comfortable with being discharged home afterwards. She has follow up with her Heading And Priming Tool Setter in2 days which I encouraged her to [...] on file Marly Gross DO Emergency Medicine [facility] EMERGENCY ROOM [address] [facility] [phone] Marly Gross DO 05/27/24 [id number] BATH MIXER * Blas Mcclellan MD - 05/27/2024 12:32 [...] reviewed?: Documented in chart and Outpatient Record: [facility] ED 05/23/2024 and [facility] visit 05/25/2024 Care impacted by chronic illness:Documented in Chart Did you consider but not order tests?: Work up considered but not performed and documented in chart, if applicable Did you interpret images independently?: Independent interpretation of ECG and images noted in documentation, when applicable. 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 Per chart review, patient was seen by oncology at [facility] on 05/01/2024 for new outpatient hematology visit for initiation of care for sickle cell disease. [facility] [place] [facility]. She reported [...] had 2 ports placed on 05/25/2024 at [facility]. Apheresis on the right, 6 maldivian smart port on the left. Patient tolerated [...] Currently Drug use: Never Social History Narrative [id number] mom. Recently moved to [place] from [place], [place]. She is 1 of 9 [...] Social Connections: Socially Integrated (03/28/2024) [facility] [...] was found. Rate: 91 bpm Rhythm: Sinus Harmans: 39 62 23 [place] Interval: 142 ms QRS Interval: 80 ms [...] my direction. Blas Mcclellan M.D. Emergency Medicine [facility] EMERGENCY ROOM [address] [place] [phone] Dept: [phone] Blas Mcclellan MD 05/27/24 1507 BATH MIXER * Yanely Avendano RN - 05/27/2024 12:02 [...] WDL WDL Cognitive/Neuro/Behavioral WDL Cognitive/Neuro/Behavioral WDL WDL BATH MIXER documented in this encounter Plan of Treatment Upcoming Encounters Date Type Department Care Team (Late st Contact Info) Description 07/04/2024 9:00 AM CDT Lab [facility] Cancer [address] [phone] Case Samuel MD [address] [place] [address], [address] [place], [place] [address] 07/06/2024 8:00 AM CDT Appointment [facility] Advanced Treatment [address] [phone] Case Samuel MD [address] [place] [address], [address] [place], [place] [address] 07/10/2024 11:30 AM CDT Oncology Visit [facility] [address] [phone] Case Samuel MD [address] [place], [place] [address], ROOM [address] [address] documented as of this encounter Goals Goal Patient Goal Type Associated Problems Recent Progress Patient-Stated? Author Pain Management General On track( 025 12:40 PM ACID BATH MIXER) Yes Juhi Benson, SOFIA Note: Goal Statement: [...] MANUAL DIFFERENTIAL STAT 05/27/2024 3 :13 PM ACID BATH MIXER CBC WITH PLATELETS AND DIFFERENTIAL STAT 05/27/2024 3:13 PM ACID BATH MIXER CBC WITH PLATELETS & DIFFERENTIAL STAT 05/27/2024 3:13 PM ACID BATH MIXER RETICULOCYTE COUNT STAT 05/27/2024 3: 13 PM ACID BATH MIXER XR CHEST 2 VIEWS STAT 05/27/2024 2:57 PM ACID BATH MIXER COMPREHENSIVE METABOLIC PANEL STAT 05/27/2024 2:30 PM ACID BATH MIXER ECG 12-LEAD WITH MUSE SJN,SJO,WWH STAT 05/27/2024 12:12 PM ACID BATH MIXER documented in this encounter Results * (ABNORMAL) Manual Differential (05/27/2024 3:13 PM ACID BATH MIXER) % Neutrophils 71 % JARET 05/27/2024 3:51 PM ACID BATH MIXER [facility] % Lymphocytes 20 % JARET 05/27/2024 3:51 PM ACID BATH MIXER [facility] % Monocytes 9 % JARET 05/27/2024 3:51 PM ACID BATH MIXER [facility] % Eosinophils 0 % JARET 05/27/2024 3:51 PM ACID BATH MIXER [facility] % Basophils 0 % JARET 05/27/2024 3:51 PM ACID BATH MIXER [facility] Absolute Neutrophils 11.1(H) 1.6 - 8.3 10e3/uL JARET 05/27/2024 3:51 PM ACID BATH MIXER [facility] Absolute Lymphocytes 3.1 0.8 - 5.3 10e3/uL JARET 05/27/2024 3:51 PM ACID BATH MIXER [facility] Absolute Monocytes 1.4(H) 0.0 - 1.3 10e3/uL JARET 05/27/2024 3:51 PM ACID BATH MIXER [facility] Absolute Eosinophils 0.0 0.0 - 0.7 10e3/uL JARET 05/27/2024 3:51 PM ACID BATH MIXER [facility] Absolute Basophils 0.0 0.0 - 0.2 10e3/uL JARET 05/27/2024 3:51 PM ACID BATH MIXER [facility] RBC Morphology Confirmed RBC Indices JARET 05/27/2024 3:51 PM [facility] Platelet Assessment Automated Count Confirmed. Platelet morphology is normal. Automated Count Confirmed. Platelet morphology is normal. JARET 05/27/2024 3:51 PM ACID BATH MIXER [facility] Acanthocytes Slight(A) None Seen JARET 05/27/2024 3:51 PM ACID BATH MIXER [facility] Elliptocytes Slight(A) None Seen JARET 05/27/2024 3:51 PM ACID BATH MIXER [facility] RBC Fragments Slight(A) None Seen JARET 05/27/2024 3:51 PM ACID BATH MIXER [facility] Polychromasia Slight(A) None Seen JARET 05/27/2024 3:51 PM [facility] Sickle Cells Moderate(A) None Seen JARET 05/27/2024 3:51 PM [facility] Target Cells Slight(A) None Seen JARET 05/27/2024 3:51 PM [facility] Blood (Portacath) Venipuncture / Unknown 05/27/2024 3:13 PM ACID BATH MIXER 05/27/2024 3:15 PM ACID BATH MIXER us Blas Mcclellan MD LAB - BLOOD ORDERABLES Final Result [facility] [address] [place] [address], [facility] * (ABNORMAL) CBC with platelets and differential (05/27/2024 3:13 PM ACID BATH MIXER) WBC Count 15.7(H) 4.0 - 11.0 10e3/uL 05/27/2024 3:48 PM [facility] RBC Count 2.21(L) 3.80 - 5.20 10e6/uL 05/27/2024 3:48 PM [facility] Hemoglobin 7.1(L) 11.7 - 15.7 g/dL 05/27/2024 3:48 PM [facility] Hematocrit 20.2(L) 35.0 - 47.0 % 05/27/2024 3:48 PM [facility] MCV 91 78 - 100 fL 05/27/2024 3:48 PM ACID BATH MIXER [facility] MCH 32.1 26.5 - 33.0 pg 05/27/2024 3:48 PM [facility] MCHC 35.1 31.5 - 36.5 g/dL 05/27/2024 3:48 PM [facility] RDW 23.0(H) 10.0 - 15.0 % 05/27/2024 3:48 PM [facility] Platelet Count 429 150 - 450 10e3/uL 05/27/2024 3:48 PM [facility] Blood (Portacath) Venipuncture / Unknown 05/27/2024 3:13 PM ACID BATH MIXER 05/27/2024 3:15 PM ACID BATH MIXER Blas Mcclellan MD LAB - BLOOD ORDERABLES Final Result Performing Organization Address [facility]/ZIP Co de Phone Number [facility] [address] [place] [address] Dr. [place] [address], [facility] * (ABNORMAL) Reticulocyte count (05/27/2024 3:13 PM ACID BATH MIXER) [facility] % Reticulocyte 28.0(H) 0.5 - 2.0 % 05/27/2024 3:19 PM [facility] Absolute Reticulocyte 0.619(H) 0.025 - 0.095 10e6/uL 05/27/2024 3:19 PM ACID BATH MIXER [facility] Blood (Portacath) Venipuncture / Unknown 05/27/2024 3:13 PM ACID BATH MIXER 05/27/2024 3:15 PM ACID BATH MIXER Blas Mcclellan MD LAB - BLOOD ORDERABLES Final Result Performing Organization Address [facility]/State/ZIP Co de Phone Number [facility] [address] [facility], [facility] * Chest XR, PA & LAT (05/27/2024 2:57 PM ACID BATH MIXER) Anatomical Region Laterality Modality Chest Digital Radiogra phy 05/27/2024 2:57 PM ACID BATH MIXER Impressions 05/27/2024 3:03 PM ACID BATH MIXER IMPRESSION: New right and left chest ports, with catheter tips at the superior cavoatrial junction. Unchanged patchy opacities in the right greater mid to lower lungs. No consolidation or pleural effusion. Stable mediastinal silhouette. Narrative 05/27/2024 3:03 PM ACID BATH MIXER EXAM: XR CHEST 2 VIEWS LOCATION: [facility] DATE: 05/27/2024 INDICATION: chest pain, sickle cell, bilateral port placement 3 days ago COMPARISON: 05/22/2024 Procedure Note Rachel Joe MD - 05/27/2024 EXAM: XR CHEST 2 VIEWS LOCATION: [facility] DATE: 05/27/2024 INDICATION: chest pain, [...] (ABNORMAL) Comprehensive metabolic panel (05/27/2024 2:30 PM ACID BATH MIXER) Sodium 136 135 - 145 mmol/L 05/27/2024 2:59 PM [facility] Potassium 4.8 3.4 - 5.3 mmol/L 05/27/2024 2:59 PM [facility] Carbon Dioxide (CO2) 18(L) 22 - 29 mmol/L 05/27/2024 2:59 PM [facility] Anion Gap 12 7 - 15 mmol/L 05/27/2024 2:59 PM [facility] Urea Nitrogen 8.4 6.0 - 20.0 mg/dL 05/27/2024 2:59 PM [facility] Creatinine 0.67 0.51 - 0.95 mg/dL 05/27/2024 2:59 PM [facility] GFR Estimate >90 >60 mL/min/1.7 3m2 05/27/2024 2:59 PM [facility] Comment:eGFR calculated usin g 2020 CKD-EPI equation. Calcium 9.3 8.8 - 10.4 mg/dL 05/27/2024 2:59 PM ACID BATH MIXER [facility] Chloride 106 98 - 107 mmol/L 05/27/2024 2:59 PM ACID BATH MIXER [facility] Glucose 97 70 - 99 mg/dL 05/27/2024 2:59 PM ACID BATH MIXER [facility] Alkaline Phosphatase 94 40 - 150 U/L 05/27/2024 2:59 PM ACID BATH MIXER [facility] AST 51(H) 0 - 45 U/L 05/27/2024 2:59 PM [facility] ALT 19 0 - 50 U/L 05/27/2024 2:59 PM [facility] Protein Total 7.7 6.4 - 8.3 g/dL 05/27/2024 2:59 PM [facility] Albumin 4.4 3.5 - 5.2 g/dL 05/27/2024 2:59 PM [facility] Bilirubin Total 2.7(H) <=1.2 mg/dL 05/27/2024 2:59 PM [facility] Blood VENOUS LINE / Unknown Venipuncture / Unknown 05/27/2024 2:30 PM ACID BATH MIXER 05/27/2024 2:36 PM ACID BATH MIXER Blas Mcclellan MD LAB - BLOOD ORDERABLES Final Result [facility] [address] [place] [place] [address], [facility] * ECG 12-LEAD WITH MUSE (LHE) (05/27/2024 12:12 PM ACID BATH MIXER) Systolic Blood Pressure 110 mmHg RADIOLOGY RESULTS Diastolic Blood Pressure 63 mmHg RADIOLOGY RESULTS Ventricular Rate 91 BPM RAD IOLOGY RESULTS Atrial Rate 91 BPM RADIOLOG Y RESULTS AZ Interval 142 ms RADIOLOG Y RESULTS QRS Duration 80 ms RADIOLO GY RESULTS QT 352 ms RADIOLOGY RESULTS QTc 432 ms RADIOLOGY RESULTS P Harmans 39 degrees RADIOLOGY RESULTS R AXIS 62 degrees RADIOLOGY RESULTS T Harmans 23 degrees RADIOLOGY RESULTS Interpretation ECG Sinus rhythm Nonspecific T wave abnormality Abnormal ECG When compared with ECG of 23-May-2024 18:54, Nonspecific T wave abnormality now evident in Inferior leads Nonspecific T wave abnormality now evident in Anterior leads Confirmed by SEE ED PROVIDER NOTE FOR, ECG INTERPRETATION ([id number]), editorial director BEN PRAKASH ([id number]) on 05/27/2024 12:22:37 PM RADIOLOGY RESULTS 05/27/2024 12:1 2 PM ACID BATH MIXER 05/27/2024 12:22 PM ACID BATH MIXER Blas Mcclellan MD ECG ORDERABLES Edited Result [...] For 1 dose $Given 05/27/2024 4:34 PM ACID BATH MIXER 25 mg heparin lock flush 100 unit/mL injection 5 mL 5 mL, Intracatheter, ONCE, On 05/27/24 at 1730, For 1 dose $Given 05/27/2024 5:33 PM ACID BATH MIXER 5 mLs HYDROmorphone (DILAUDID) injection 2 mg 2 mg, Intravenous, ONCE, On 05/27/24 at 1300, For 1 dose $Given 05/27/2024 2:43 PM ACID BATH MIXER 2 mg HYDROmorphone (DILAUDID) injection 2 mg 2 mg, Intravenous, ONCE, On 05/27/24 at 1630, For 1 dose $Given 05/27/2024 4:37 PM ACID BATH MIXER 2 mg HYDROmorphone (DILAUDID) injection 2 mg 2 mg, Intravenous, ONCE, On 05/27/24 at 1730, For 1 dose $Given 05/27/2024 5:09 PM ACID BATH MIXER 2 mg lactated ringers BOLUS 1,000 mL Intravenous, 1,000 mL, ONCE, On 05/27/24 at 1300, For 1 dose $New Bag 05/27/2024 2:33 PM ACID BATH MIXER 1,000 mLs ondansetron (ZOFRAN) injection 8 mg 8 mg, Intravenous, ONCE, Administer over 2-5 Minutes, On 05/27/24 at 1300, For 1 dose $Given 05/27/2024 2:40 PM ACID BATH MIXER 8 mg documented in this encounter Active and Recently Administered Medications Times are shown in ACID BATH MIXER. Scheduled Medication Order 05/25/2024 05/26/2024 05/27/2024 diphenhydrAMINE [...] RN) documented in this encounter Care Teams Real Estate Officer Relationship Specialty Start Date End Date No Ref-Primary, Physician PCP - General 03/15/24 06/17/24 Mor Ramsey Medical Student 04/03/24 Case Samuel MD [address] [place] [address], [address] [place] [address] Assigned Pediatric Specialist Provider 05/18/24 documented as of this encounter
--- OUTSIDE RECORDS SUMMARY | 2024-07-03 21:31 | XMS_ITS | Encounter Summary ---
Author Organization [facility] Address [address] [place] [address]. [place] [address] Care Team Providers Care Residential Supervisor Name Role Phone No Ref-Primary, Physician Primary Care Provider Mor Ramsey Unavailable Unavailable Case Samuel MD Unavailable [phone] Encounter Details Date Type Department Care Team (Late st Contact Info) Description 05/22/2024 MyC Medical Advice [facility] Interventional Radiology [address] [place] [address] Yadi Mahan, RN Social History [...] file Legal Sex Female 8:25 AM MACHINE FASTENER Gender Identity Not on file Sexual Orientation Not on file documented as of this encounter Plan of Treatment Upcoming Encounters Date Type Department Care Team (Late st Contact Info) Description 07/04/2024 9:00 AM CDT Lab [facility] [address] [phone] Case aSmuel MD [address] [place] [address], [address] [id number] 07/06/2024 8:[address] [facility] [address] [phone] Case Samuel MD [address] [place] [address], [address] [id number] 07/10/2024 11:30 AM CDT Oncology Visit [facility] [address] [phone] Case Samuel MD [address] [place] [address], [address] [id number] documented as of this encounter Goals Goal Patient Goal Type Associated Problems Recent Progress Patient-Stated? Author Pain Management General On track( 025 12:40 PM MACHINE FASTENER) Yes Juhi Benson, RN Note: Goal Statement: [...] on filedocumented in this encounter Care Teams Residential Supervisor Relationship Specialty Start Date End Date No Ref-Primary, Physician PCP - General 03/15/24 06/17/24 Mor Ramsey Medical Student 04/03/24 Case Samuel MD [address] [place] [address], [address] [place] [address] Assigned Pediatric Specialist Provider 05/18/24 documented as of this encounter
--- OUTSIDE RECORDS SUMMARY | 2024-07-03 21:31 | XMS_ITS | Encounter Summary ---
Author Organization [facility] Address [address] [place] [address] Care Team Providers Care Joiner Name Role Phone No Ref-Primary, Physician Primary Care Provider Mor Ramsey Unavailable Unavailable Case Samuel MD Unavailable [phone] Reason for Referral * Therapeutic Imaging/IR (Routine: Next available opening) - Closed Specialty Diagnoses / Procedures Referred By Contac t Referred To Contact Radiology. 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) [...] on file Legal Sex Female 8:25 AM TRANSITIONAL CARE NURSE Gender Identity Not on file Sexual Orientation Not on file documented as of this encounter Last Filed Vital Signs Vital Sign Reading Time Taken Comments Blood Pressure 100/60 05/25/2024 4:00 PM TRANSITIONAL CARE NURSE Pulse 92 05/25/2024 3:00 PM TRANSITIONAL CARE NURSE Temperature 36.9 C (98.5 F) 05/25/2024 11:09 AM TRANSITIONAL CARE NURSE Respiratory Rate 16 05/25/2024 4:00 PM TRANSITIONAL CARE NURSE Oxygen Saturation 98% 05/25/2024 4:00 PM TRANSITIONAL CARE NURSE Inhaled Oxygen Concentration - - Weight 51.1 kg (112 lb 9.6 oz) 05/25/2024 11:09 AM TRANSITIONAL CARE NURSE Height - - Body Mass Index 21.28 05/23/2024 4:48 PM TRANSITIONAL CARE NURSE documented in this encounter Discharge Instructions * Discharge Instructions* Hattie Ballesteros RN - 05/25/2024 3:24 PM TRANSITIONAL CARE NURSE Images from the original note were not included. [facility] Interventional Radiology Discharge Instructions Following Port Placement You had a 2 ports placed. On the right side of your chest is a apheresis port and on the left side of your chest in a smart port. A port is a small medical instructor that is placed under the skin and isconnected to a vein with a catheter (thin, flexible tube). Ports can be used to administer IV medications (including chemotherapy), fluids or blood products or for blood lab draws. Please follow the below instructions after your procedure: Your Ports has been closed with [place] (Skin Glue) If there is any [...] port placement for further instructions for this. [facility] INTERVENTIONAL RADIOLOGY DEPARTMENT Procedure Physician: Myron Michel MD Date of procedure: May 25, 2024 Telephone Numbers: [phone] Wednesday-Wednesday 7:30 am to 4:00 pm [phone] After 4:00 pm Wednesday-Wednesday, Weekends & Holidays. Ask for the Interventional Radiologist energy conservation director. Someone is energy conservation director 24 hrs/day [facility] toll free number: Wednesday-Wednesday 8:00 am to 4:30 pm [facility] Emergency Dept: [phone] IF YOU ARE EXPERIENCING A MEDICAL EMERGENCY PLEASE CALL 911 SITIONAL CARE NURSE SITIONAL CARE NURSE documented in this encounter Medications at Time [...] to s/o who is driving patient home. SITIONAL CARE NURSE * Hattie Ballesteros RN - 05/25/2024 3:07 PM CST Patient returned s/p bilateral port placement with apheresis port on the right and smart port on the left, both with dermabond, intact no bleeding or swelling. Patient c/o 7/10 pain, RN called Dr. Anglin and got home dose of dilaudid ordered. Patient alert and oriented, RASS of 0. Will discharge once meeting criteria. SITIONAL CARE NURSE * Hattie Ballesteros RN - 05/25/2024 12:32 PM CST Patient prepped for port placement x 2. Patient will have a power port and a apharesis IV port. Consent signed. PIV placed in left AC by vascular, IV antibiotic running. Appropriately NPO. Patient has sickle cell disease, reports pain okay today. S/o Vineet will be picking patient up. SITIONAL CARE NURSE documented in this encounter Procedure Notes * Myron Michel MD - 05/25/2024 2:55 PM CSTAssociated Order(s): IR Procedure Note [facility] Procedure: IR Procedure Note Date/Time: [...] the procedure a time out was called Greenbush Protocol: the Joint Commission Greenbush Protocol was followed Preparation: Patient was prepped and draped in usual sterile fashion ANESTHESIA Anesthesia: Local infiltration Local Anesthetic: Lidocaine 1% without epinephrine SEDATION Patient Sedated: Yes Sedation Type: Moderate (conscious) sedation Sedation: Fentanyl and midazolam Vital signs: Vital signs monitored during sedation See dictated procedure note for full details. Findings: Successful bilateral port placement apheresis on the right, 6 taiwanese smart port on the left Specimens: none Procedural Complications: None Condition: Stable Plan: 1 hour bedrest then okay to discharge PROCEDURE Describe Procedure: Successful bilateral port placement apheresis on the right, 6 taiwanese smart porton the left Patient Tolerance: Patient tolerated the procedure well with no immediate complications Length of time physician/provider present for 1:1 monitoring during sedation: 83-97 min SITIONAL CARE NURSE documented in this encounter Miscellaneous Notes * [...] mcg of fentanyl Sedation time: 97 minutes ([id number]) Report given to: Juhi Aviles RN Traffic Attendant: n/a Other Notes: Pt arrived to IR [...] (5 mL). Pt transferred back to . SITIONAL CARE NURSE * Pre-Procedure - Juan Story PA-Jefferson - 05/25/2024 11:37 AM TRANSITIONAL CARE NURSE GENERAL PRE-PROCEDURE: Procedure: Port placement x2 Date/Time: [...] data, medications, and the plan for sedation SITIONAL CARE NURSE documented in this encounter Plan of Treatment Upcoming Encounters Date Type Department Care Team (Late st Contact Info) Description 07/04/2024 9:00 AM CDT Lab [facility] [address] [phone] Case Samuel MD [address] [place] [address], [address] [id number] 07/06/2024 8:00 AM CDT Appointment [facility] [address] [phone] Case Samuel MD [address] [place] [address], [address] [place], [place] [address] 07/10/2024 11:30 AM CDT Oncology Visit [facility] [address] [phone] Case Samuel MD [address] [place] [address], [address] [place], [place] [id number] documented as of this encounter Goals Goal Patient Goal Type Associated Problems Recent Progress Patient-Stated? 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) HCG QUALITATIVE URINE Routine 05/25/2024 12:03 PM TRANSITIONAL CARE NURSE documented in this encounter Results * IR Procedure Note (05/25/2024 2:54 PM TRANSITIONAL CARE NURSE) Narrative Myron Michel MD - 05/25/2024 2:54 PM TRANSITIONAL CARE NURSE Myron Michel MD 05/25/2024 2:55 PM [facility] [...] the procedure a time out was called Greenbush Protocol: the Joint Commission Greenbush Protocol was followed Preparation: Patient was prepped and draped in usual sterile fashion ANESTHESIA Anesthesia: Local infiltration Local Anesthetic: Lidocaine 1% without epinephrine SEDATION Patient Sedated: Yes Sedation Type: Moderate (conscious) sedation Sedation: Fentanyl and midazolam Vital signs: Vital signs monitored during sedation See dictated procedure note for full details. Findings: Successful bilateral port placement apheresis on the right, 6 taiwanese smart port on the left Specimens: none Procedural Complications: None Condition: Stable Plan: 1 hour bedrest then okay to discharge PROCEDURE Describe Procedure: Successful bilateral port placement apheresis on the right, 6 taiwanese smart port on the left Patient Tolerance: Patient tolerated the procedure well with no immediate complications Length of time physician/provider present for 1:1 monitoring during sedation: 83-97 min us Myron Michel MD PROCEDURE/MINOR SURGICAL ORDERA BLES Final Result * IR Chest Port Placement > 5 Yrs of Age (05/25/2024 2:47 PM TRANSITIONAL CARE NURSE) Anatomical Region Laterality Modality Chest Radio Fluoroscop y Impressions 05/25/2024 5:26 PM TRANSITIONAL CARE NURSE IMPRESSION: Insertion of right-sided apheresis chest port, [...] mg Versed Sedation time: 97 minutes ATTENDING [id number] SEDATION TIME: less than 5 minutes. Access [...] placed: BD PowerFlow apheresis port Catheter size (Czech): 9.6 Lumens: Single-lumen Power injectable: Yes Catheter [...] JASWINDER COOPER MD Narrative 05/25/2024 5:26 PM TRANSITIONAL CARE NURSE PROCEDURE: Venous port placement Procedural Personnel Attending [...] mg Versed Sedation time: 97 minutes ATTENDING [id number]-BR-[id number] SEDATION TIME: less than 5 minutes. Access [...] placed: BD PowerFlow apheresis port Catheter size (Czech): 9.6 Lumens: Single-lumen Power injectable: Yes Catheter [...] 4 Yrs of Age (05/25/2024 2:47 PM TRANSITIONAL CARE NURSE) Anatomical Region Laterality Modality Chest Radio Fluoroscop y Impressions 05/25/2024 5:23 PM TRANSITIONAL CARE NURSE IMPRESSION: Insertion of left-sided 6 Czech chest port, with catheter tip in the [...] mg Versed Sedation time: 97 minutes ATTENDING [id number] SEDATION TIME: 5 minutes. Access Local anesthesia [...] AngioDynamics Plastic CT Smart Port Catheter size (Czech): 6 Lumens: Single-lumen Power injectable: Yes Catheter [...] JASWINDER COOPER MD Narrative 05/25/2024 5:23 PM TRANSITIONAL CARE NURSE PROCEDURE: Venous port placement Procedural Personnel Attending [...] immediate complications. IMPRESSION: Insertion of left-sided 6 Czech chest port, with catheter tip in the [...] mg Versed Sedation time: 97 minutes ATTENDING [id number] SEDATION TIME: 5 minutes. Access Local anesthesia [...] a permanent image was stored. Port placed: AngioVictory PharmanamSenzari Plastic CT Smart Port Catheter size (Czech): 6 Lumens: Single-lumen Power injectable: Yes Catheter [...] JASWINDER COOPER MD us Case Samuel MD [facility] [place] IR ORDERABLES Final R esult * HCG qualitative urine (05/25/2024 12:03 PM TRANSITIONAL CARE NURSE) hCG Urine Qualitative Negative Negative JARET 05/25/2024 12:34 PM TRANSITIONAL CARE NURSE [facility] Comment:This test is for scr eening purposes. Results should be interpreted along with the clinical picture. Confirmation testing is available if warranted by ordering [id number], HCG Quantitative . Urine MID-STREAM URINE SPECIMEN / Unknown Non-blood Collection / Unknown 05/25/2024 12:03 PM TRANSITIONAL CARE NURSE 05/25/2024 12:19 PM TRANSITIONAL CARE NURSE us Jaswinder Cooper MD LAB - URINE ORDERABLES Liss bola Result LABORATORY [facility] [facility] [address] [facility], [address] [place] [address] documented in this encounter Visit [...] ative Pharmacoprophylaxis $New Bag 05/25/2024 12:17 PM TRANSITIONAL CARE NURSE 2 g 200 mL/hr fentaNYL (PF) (SUBLIMAZE) [...] physician., IR Intra-procedure $Given 05/25/2024 2:38 PM TRANSITIONAL CARE NURSE 25 mcg $Given 05/25/2024 2:25 PM TRANSITIONAL CARE NURSE 50 mcg $Given 05/25/2024 2:16 PM TRANSITIONAL CARE NURSE 25 mcg flumazenil (ROMAZICON) injection 0.2 mg [...] $Given by Other Clinician 05/25/2024 1:40 PM TRANSITIONAL CARE NURSE 5,000 Units heparin lock flush 100 unit/mL injection 5 mL 5 mL, Intracatheter, ONCE, On Citlali 05/25/24 at 1330, For 1 dose, Left chest port $Given by Other Clinician 05/25/2024 2:30 PM TRANSITIONAL CARE NURSE 5 mLs HYDROmorphone (DILAUDID) tablet 2 mg 2 mg, Oral, ONCE PRN, severe pain, Starting on Citlali 05/25/24 at 1507, For 1 dose $Given 05/25/2024 3:16 PM TRANSITIONAL CARE NURSE 2 mg lidocaine (LMX4) cream Topical, EVERY [...] $Given by Other Clinician 05/25/2024 1:58 PM TRANSITIONAL CARE NURSE 40 mLs midazolam (VERSED) injection 0.5-2 mg [...] dose., IR Intra-procedure $Given 05/25/2024 2:38 PM TRANSITIONAL CARE NURSE 0.5 mg $Given 05/25/2024 2:25 PM TRANSITIONAL CARE NURSE 1 mg $Given 05/25/2024 2:16 PM TRANSITIONAL CARE NURSE 0.5 mg naloxone (NARCAN) injection 0.2 mg [...] Recently Administered Medications Times are shown in TRANSITIONAL CARE NURSE. Scheduled Medication Order 05/23/2024 05/24/2024 05/25/2024 ceFAZolin [...] administer intradermally., IR Intra-procedure 1358 ($Given by [employer] r Clinician - Provider: Marly Narvaez RN [...] procedure documented in this encounter Care Teams Joiner Relationship Specialty Start Date End Date No Ref-Primary, Physician PCP - General 03/15/24 06/17/24 Mor Ramsey Medical Student 04/03/24 Case Samuel MD [address] [place] [address], [address] [place] [address] Assigned Pediatric Specialist Provider 05/18/24 documented as of this encounter
--- OUTSIDE RECORDS SUMMARY | 2024-07-03 21:31 | XMS_ITS | Encounter Summary ---
Author Organization [facility] Address [address] [place] [address] Care Team Providers Care High Tension Tester Name Role Phone No Ref-Primary, Physician Primary Care Provider Mor Ramsey Unavailable Unavailable Csae Samuel MD Unavailable [phone] Reason for Visit * Reason Comments Abdominal Pain ULQ Encounter Details Date Type Department Care Team (Late st Contact Info) Description 05/23/2024 9:03 PM BLACK POWDER GLAZING OPERATOR - 05/23/2024 11:37 PM [facility] Emergency [facility] Emergency Room [facility] [place] [address] Marilia Summers MD [address] [place] [address] [phone] Sickle cell pain crisis (H); Leukocytosis, unspecified [...] on file Legal Sex Female 8:25 AM BLACK POWDER GLAZING OPERATOR Gender Identity Not on file Sexual Orientation Not on file documented as of this encounter Last Filed Vital Signs Vital Sign Reading Time Taken Comments Blood Pressure 123/71 05/23/2024 9:53 PM BLACK POWDER GLAZING OPERATOR Pulse 95 05/23/2024 9:53 PM BLACK POWDER GLAZING OPERATOR Temperature 37.7 C (99.9 F) 05/23/2024 4:48 PM BLACK POWDER GLAZING OPERATOR Respiratory Rate 18 05/23/2024 4:48 PM BLACK POWDER GLAZING OPERATOR Oxygen Saturation 98% 05/23/2024 9:53 PM BLACK POWDER GLAZING OPERATOR Inhaled Oxygen Concentration - - Weight 51.7 kg (114 lb) 05/23/2024 4:48 PM BLACK POWDER GLAZING OPERATOR Height 154.9 cm (5' 1) 05/23/2024 4:48 PM BLACK POWDER GLAZING OPERATOR Body Mass Index 21.54 05/23/2024 4:48 PM BLACK POWDER GLAZING OPERATOR documented in this encounter Discharge Instructions * Discharge Instructions* Marilia Summers MD - 05/23/2024 10:34 PM BLACK POWDER GLAZING OPERATOR Keep your appointment for your port in 2 days. Continue to work with oncology/hematology on pain control. The Lidoderm patch helps with the area of pain underneath your left breast on the chest wall, you can get xfkt-jga-ohuxalm muscle pain patches that have the same numbing medicine in them and put it on for 12 hours at a time to help with your discomfort. Obviously return to the emergency department as needed if you are having difficulty with breathing. K POWDER GLAZING OPERATOR * Attachments The following attachments cannot be sent through Care Everywhere. * Sickle Cell Crisis (Welsh) documented in this encounter Medications at Time [...] /chest pain. Seen for similar last night K POWDER GLAZING OPERATOR * Marilia Summers MD - 05/23/2024 [...] she notes the plan discussed with the oncologist/lather apprentice is to do 3 times a week [...] of chest pain. Misti [facility] a few[facility] ago and since that time has been seen in the emergency department greater than 40 times. Shewas seen here yesterday, May 21, 2019, , , , , 18, 13th, 12th, 11th, 10th, eighth, seventh twice, on the sixth she was seen by oncology at the [facility] for the first time, also in [...] EMBOLISM W CONTRAST LOCATION: [facility] DATE: 05/23/2024 INDICATION: patient with sickle cell. acute chest pain similar to pe in the past. COMPARISON: Chest x-ray 05/22/2024, CTA chest 05/04/2024 and 03/15/2024. [facility] from 03/13/2023 is also available. [...] QT 362 ms QTc 409 ms P [place] 61 degrees R AXIS 92 degrees T [place] 49 degrees Interpretation ECG Sinus rhythm Rightward axis Borderline ECG When compared with ECG of 22-May-2024 15:14, Nonspecific T wave abnormality no longer evident in Inferior leads Confirmed by SEE ED PROVIDER NOTE FOR, ECG INTERPRETATION (4000), web editor SELMA GARRISON ([id number]) on 05/23/2024 7:30:33 PM ECG: Performed at: 1854 Impression: nsr rate of 77, wandering baseline somewhat limits exam. R axis. Pr 160ms, qrs 82ms, qtc 409ms, prt axes 61 92 49. Compared to 05/22/[address] segments in inferior limb leads no longer present. I have independently reviewed and interpreted the EKS(s) documented above PROCEDURES: Procedures: [facility] Documentation Medical Decision Making Obtained [...] with other provider:Did you involve another provider (field sales consultant, , pharmacy, etc.)?: No Discharge. I prescribed additional prescription strength medication(s) as charted. See documentation for any additional details. MIPS: Not Applicable Marilia Summers MD Emergency Medicine [facility] EMERGENCY ROOM Marilia Summers MD 05/23/24 0390 K POWDER GLAZING OPERATOR * Carmen Elkins, SOFIA - 05/23/2024 4:51 PM CST Pt arrives with c/o abdominal pain (ULQ). Pt seen here yesterday for the same pain and sickle cell pain. Reports feeling better when she left yesterday but now pain is back. Temp: 99.9 K POWDER GLAZING OPERATOR documented in this encounter Plan of Treatment Upcoming Encounters Date Type Department Care Team (Late st Contact Info) Description 07/04/2024 9:00 AM CDT Lab [facility] [address] [place] [address] Case Samuel MD [address] [place] [address], [address] [place] [address] 07/06/2024 8:00 AM CDT Appointment [facility] [place] [id number] [place] [phone] Case Samuel MD [address] [facility] [address], [address] [place], [place] [phone] 07/10/2024 11:30 AM CDT Oncology Visit [facility] [address] [place] [phone] Case Samuel MD [address] [facility] [address], [address] [place] [address] documented as of this encounter Goals Goal Patient Goal Type Associated Problems Recent Progress Patient-Stated? Author Pain Management General On track( 025 12:40 PM BLACK POWDER GLAZING OPERATOR) Yes Juhi Benson, RN Note: Goal [...] EMBOLISM W CONTRAST STAT 05/23/2024 9:33 PM BLACK POWDER GLAZING OPERATOR TROPONIN T, HIGH SENSITIVITY STAT 05/23/2024 9:02 PM BLACK POWDER GLAZING OPERATOR RETICULOCYTE COUNT STAT 05/23/2024 9: 02 PM BLACK POWDER GLAZING OPERATOR N TERMINAL PRO BNP OUTPATIENT STAT 05/23/2024 9:02 PM BLACK POWDER GLAZING OPERATOR CBC WITH PLATELETS STAT 05/23/2024 9: 02 PM BLACK POWDER GLAZING OPERATOR ECG 12-LEAD WITH MUSE SJN,SJO,WWH STAT 05/23/2024 6:54 PM BLACK POWDER GLAZING OPERATOR documented in this encounter Results * CT Chest Pulmonary Embolism w Contrast (05/23/2024 9:33 PM BLACK POWDER GLAZING OPERATOR) Anatomical Region Laterality Modality Chest, SUBRAD CT BODY, UMP CT CHEST Computed Tomography 05/23/2024 9:33 PM BLACK POWDER GLAZING OPERATOR Impressions 05/23/2024 10:12 PM BLACK POWDER GLAZING OPERATOR IMPRESSION: 1. Bilateral pulmonary nodules stable [...] as noted above. Narrative 05/23/2024 10:12 PM BLACK POWDER GLAZING OPERATOR EXAM: CT CHEST PULMONARY EMBOLISM W CONTRAST LOCATION: [facility] DATE: 05/23/2024 INDICATION: patient with sickle cell. acute chest pain similar to pe in the past. COMPARISON: Chest x-ray 05/22/2024, CTA chest 05/04/2024 and 03/15/2024. [facility] of CT [facility] from 03/13/2023 is also available. [...] EMBOLISM W CONTRAST LOCATION: [facility] DATE: 05/23/2024 INDICATION: patient with sickle cell. acute chest pain similar to pe inthe past. COMPARISON: Chest x-ray 05/22/2024, CTA chest 05/04/2024 and 03/15/2024.Report of CT [facility] from 03/13/2023 is alsoavailable. TECHNIQUE: CT [...] terminal pro BNP outpatient (05/23/2024 9:02 PM BLACK POWDER GLAZING OPERATOR) Pathologist [facility] N Terminal Pro BNP Outpatient 74 [id number] - 450 pg/mL 05/23/2024 9:39 PM BLACK POWDER GLAZING OPERATOR [facility] Comment: Reference range shown [...] Unknown Venipuncture / Unknown 05/23/2024 9:02 PM BLACK POWDER GLAZING OPERATOR 05/23/2024 9:10 PM BLACK POWDER GLAZING OPERATOR us Marilia Summers MD LAB - BLOOD ORDERABLES Final Result [facility] [address] [place] [address], [facility] * Troponin T, High Sensitivity (05/23/2024 9:02 PM BLACK POWDER GLAZING OPERATOR) Pathologist [facility] Troponin T, High Sensitivity <6 <=14 ng/L 05/23/2024 9:39 PM BLACK POWDER GLAZING OPERATOR [facility] Comment: Either [...] Unknown Venipuncture / Unknown 05/23/2024 9:02 PM BLACK POWDER GLAZING OPERATOR 05/23/2024 9:10 PM BLACK POWDER GLAZING OPERATOR Marilia Summers MD LAB - BLOOD ORDERABLES Final Result Performing Organization Address [facility] Phone Number [facility] [address] [place] [address] * (ABNORMAL) Reticulocyte count (05/23/2024 9:02 PM BLACK POWDER GLAZING OPERATOR) % Reticulocyte 28.1(H) 0.5 - 2.0 % 05/23/2024 9:35 PM BLACK POWDER GLAZING OPERATOR [facility] Absolute Reticulocyte 0.698(H) 0.025 - 0.095 10e6/uL 05/23/2024 9:35 PM BLACK POWDER GLAZING OPERATOR [facility] Blood BLOOD SPECIMEN / Unknown Venipuncture / Unknown 05/23/2024 9:02 PM BLACK POWDER GLAZING OPERATOR 05/23/2024 9:10 PM BLACK POWDER GLAZING OPERATOR Marilia Summers MD LAB - BLOOD ORDERABLES Final Result Performing Organization Address [facility] de Phone Number [facility] [address] [place] [address] * (ABNORMAL) CBC (+ platelets, no diff) (05/23/2024 9:02 PM BLACK POWDER GLAZING OPERATOR) WBC Count 17.2(H) 4.0 - 11.0 10e3/uL 05/23/2024 9:18 PM BLACK POWDER GLAZING OPERATOR [facility] RBC Count 2.45(L) 3.80 - 5.20 10e6/uL 05/23/2024 9:18 PM BLACK POWDER GLAZING OPERATOR [facility] Hemoglobin 7.9(L) 11.7 - 15.7 g/dL 05/23/2024 9:18 PM [facility] Hematocrit 22.4(L) 35.0 - 47.0 % 05/23/2024 9:18 PM [facility] MCV 91 78 - 100 fL 05/23/2024 9:18 PM [facility] MCH 32.2 26.5 - 33.0 pg 05/23/2024 9:18 PM [facility] MCHC 35.3 31.5 - 36.5 g/dL 05/23/2024 9:18 PM [facility] RDW 24.4(H) 10.0 - 15.0 % 05/23/2024 9:18 PM [facility] Platelet Count 519(H) 150 - 450 10e3/uL 05/23/2024 9:18 PM [facility] Blood BLOOD SPECIMEN / Unknown Venipuncture / Unknown 05/23/2024 9:02 PM BLACK POWDER GLAZING OPERATOR 05/23/2024 9:10 PM BLACK POWDER GLAZING OPERATOR us Marilia Summers MD LAB - BLOOD ORDERABLES Final Result Performing Organization Address [facility]/State/[facility] Co de Phone Number [facility] [address] [facility] [address] [place], [place] [address] * ECG 12-LEAD WITH MUSE (LHE) (05/23/2024 6:54 PM BLACK POWDER GLAZING OPERATOR) Systolic Blood Pressure mmHg RADIOLOGY RESULTS Diastolic Blood Pressure mmHg RADIOLOGY RESULTS Ventricular Rate 77 BPM RAD IOLOGY RESULTS Atrial Rate 77 BPM RADIOLOG Y RESULTS TN Interval 160 ms RADIOLOG Y RESULTS QRS Duration 82 ms RADIOLO GY RESULTS QT 362 ms RADIOLOGY RESULTS QTc 409 ms RADIOLOGY RESULTS P [place] 61 degrees RADIOLOGY RESULTS R AXIS 92 degrees RADIOLOGY RESULTS T [place] 49 degrees RADIOLOGY RESULTS Interpretation ECG Sinus rhythm Rightward axis Borderline ECG When compared with ECG of 22-May-2024 15:14, Nonspecific T wave abnormality no longer evident in Inferior leads Confirmed by SEE ED PROVIDER NOTE FOR, ECG INTERPRETATION (4000), web editor SELMA GARRISON ([id number]) on 05/23/2024 7:30:33 PM RADIOLOGY RESULTS 05/23/2024 6:54 PM BLACK POWDER GLAZING OPERATOR 05/23/2024 7:30 PM BLACK POWDER GLAZING OPERATOR us Marilia Summers MD ECG ORDERABLES [...] For 1 dose $Given 05/23/2024 10:03 PM BLACK POWDER GLAZING OPERATOR 50 mg HYDROmorphone (DILAUDID) injection 2 mg 2 mg, Intravenous, EVERY 1 HOUR PRN, moderate pain, Starting on Wed05/23/24 at 2115, For 2 doses $Given 05/23/2024 10:21 PM BLACK POWDER GLAZING OPERATOR 2 mg $Given 05/23/2024 9:18 PM BLACK POWDER GLAZING OPERATOR 2 mg HYDROmorphone (DILAUDID) injection 2 mg 2 mg, Intravenous, ONCE, On Wed05/23/24 at 2330, For 1 dose $Given 05/23/2024 11:20 PM BLACK POWDER GLAZING OPERATOR 2 mg iopamidol (ISOVUE-370) solution 75 mL 75 mL, Intravenous, ONCE, On Wed05/23/24 at 2130, For 1 dose $Given 05/23/2024 9:33 PM BLACK POWDER GLAZING OPERATOR 75 mLs lactated ringers BOLUS 1,000 mL Intravenous, 1,000 mL, ONCE, On Wed05/23/24 at 2200, For 1 dose $New Bag 05/23/2024 10:05 PM BLACK POWDER GLAZING OPERATOR 1,000 mLs Lidocaine (LIDOCARE) 4 % [...] post injection. $Patch/Med Applied 05/23/2024 10:53 PM BLACK POWDER GLAZING OPERATOR 1 patch Left Chest ondansetron (ZOFRAN) injection 8 mg 8 mg, Intravenous, ONCE PRN, nausea, vomiting, Administer over 2-5 Minutes, Starting on Wed05/23/24 at 2159, For 1 dose $Given 05/23/2024 10:07 PM BLACK POWDER GLAZING OPERATOR 8 mg documented in this encounter Active and Recently Administered Medications Times are shown in BLACK POWDER GLAZING OPERATOR. Scheduled Medication Order 05/21/2024 05/22/2024 05/23/2024 [...] 2132 ($Given - Provi nas: Selina Finn [facility]) lactated ringers BOLUS 1,000 mL (COMPLETED) Intravenous, [...] 2253 ($Patch/Med Sukhjinder lied - Provider: Sanjay Puryd RN)2337 (Due: Patch/Med Removed - Provider: Orders [...] RN) documented in this encounter Care Teams High Tension Tester Relationship Specialty Start Date End Date No Ref-Primary, Physician PCP - General 03/15/24 06/17/24 Mor Ramsey Medical Student 04/03/24 Case Samuel MD [address] [place] [address], [address] [place] [address] Assigned Pediatric Specialist Provider 05/18/24 documented as of this encounter
--- OUTSIDE RECORDS SUMMARY | 2024-07-03 21:31 | XMS_ITS | Encounter Summary ---
Author Organization [facility] Address [address] [place] [address]. [place] [address] Care Team Providers Care Melt House Centrifugal Operator Name Role Phone No Ref-Primary, Physician Primary Care Provider Mor Ramsey Unavailable Unavailable Case Samuel MD Unavailable [phone] Juhi Benson RN Unavailable Unavailable Encounter Details Date Type Department Care Team (Late st Contact Info) Description 05/29/2024 Orders Only [facility] [address] [place] [address] Juhi Benson, SOFIA Sickle cell [...] Legal Sex Female 8:25 AM INSIDE SALES TRAINER Gender Identity Not on file Sexual Orientation Not on file documented as of this encounter Plan of Treatment Upcoming Encounters Date Type Department Care Team (Late st Contact Info) Description 07/04/2024 9:00 AM CDT Lab [facility] [address] [address] Case Samuel MD [address] [place], [place] [address], [address] [place] [id number] 07/06/2024 8:00 AM CDT Appointment [facility] [address] [address] Case Samuel MD [address] [place] [address], [address] [place], [place] [address] 07/10/2024 11:30 AM CDT Oncology Visit [facility] [address] [address] Case Samuel MD [address] [place] [address], [address] [address] documented as of this encounter Goals Goal Patient Goal Type Associated Problems Recent Progress Patient-Stated? Author Pain Management General On track( 025 12:40 PM INSIDE SALES TRAINER) Yes Juhi Benson, RN Note: Goal Statement: [...] crisis documented in this encounter Care Teams Melt House Centrifugal Operator Relationship Specialty Start Date End Date No Ref-Primary, Physician PCP - General 03/15/24 06/17/24 Mor Ramsey Medical Student 04/03/24 Case Samuel MD [address] [place] [address], [address] [place] [address] Assigned Pediatric Specialist Provider 05/18/24 Juhi Benson, RN Specialty Claim Trainee Hematology & Oncology 05/29/24 documented as of this encounter
--- OUTSIDE RECORDS SUMMARY | 2024-07-03 21:31 | XMS_ITS | Encounter Summary ---
Author Organization [place] Address [address] [place] [id number] Care Team Providers Care Payroll Manager Name Role Phone No Ref-Primary, Physician Primary Care Provider Mor Ramsey Unavailable Unavailable Case Samuel MD Unavailable [phone] Reason for Visit * Reason Comments Sickle Cell Pain Crisis Chest Pain Encounter Details Date Type Department Care Team (Late st Contact Info) Description 05/20/2024 7:30 AM BOND WRITER - 05/20/2024 11:15 AM [facility] Emergency [facility] Emergency Room [address] [place] [address] [facility] [address], [place] [address] Sickle cell pain crisis (H) Discharge Disposition: [...] on file Legal Sex Female 8:25 AM BOND WRITER Gender Identity Not on file Sexual Orientation Not on file documented as of this encounter Last Filed Vital Signs Vital Sign Reading Time Taken Comments Blood Pressure 115/59 05/20/2024 11:00 AM BOND WRITER Pulse 76 05/20/2024 11:00 AM BOND WRITER Temperature 37.3 C (99.2 F) 05/20/2024 7:33 AM BOND WRITER Respiratory Rate 20 05/20/2024 11:00 AM BOND WRITER Oxygen Saturation 100% 05/20/2024 11:00 AM BOND WRITER Inhaled Oxygen Concentration - - Weight 50.8 kg (112 lb) 05/20/2024 7:33 AM BOND WRITER Height 154.9 cm (5' 1) 05/20/2024 7:33 AM BOND WRITER Body Mass Index 21.16 05/20/2024 7:33 AM BOND WRITER documented in this encounter Discharge Instructions * Discharge Instructions* Stiven Madsen MD - 05/20/2024 11:08 AM BOND WRITER 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 Try to make sure that you are drinking plenty of liquids to keep yourself hydrated. Continue to take your usual pain medications. If you have other concerns specifically productive cough, severe chest pain, shortness of breath, or other immediate concern we should reevaluate in the emergency department. WRITER documented in this encounter Medications at Time [...] in 10 minutes. Message sent to provider. WRITER * Suzanne Cadet RN - 05/20/2024 10:00 AM CST Pt requesting additional medication for pain. Also requesting medication for itching. Message sent to provider. Medicated per provider order. WRITER * Yanna Huerta RN - 05/20/2024 8:43 AM CST IV infiltrated and removed, LES RN coming to try for IV WRITER * Yanna Huerta RN - 05/20/2024 8:10 AM CST Introduced self to patient. Whiteboard updated. Plan of care and length of time discussed with patient. Will continue to monitor. Yanna Huerta RN.......05/20/2024 8:37 AM WRITER * Stiven Madsen MD - 05/20/2024 7:31 [...] cell disease. Radial instantly establishing care in [place] and with several ED visits across the [...] with other provider:Did you involve another provider (pension consultant, MH, pharmacy, etc.)?: No Discharge. 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 Recently moved to [place] from [place], [place]. She is 1 of 9 [...] Social Connections: Socially Integrated (03/28/2024) Received from [facility] Social Connections Do you often feel [...] wave abnormality. Rate: 86 Rhythm: Sinus rhythm [place]: 18 55 25 [place] Interval: 154 QRS Interval: 78 QTc Interval: [...] direction. Stiven Madsen M.D. Emergency Medicine [facility] EMERGENCY ROOM [address] [place] [phone] Dept: [phone] Stiven Madsen MD 05/20/24 1355 WRITER * Stefani Huizar RN - 05/20/2024 7:27 AM CST Pt c/o pain all over body, hx sickle cell and feels like flare up started 2 days ago. Pt also c/o left sided chest pain, pain with taking a deep breath. Pt was seen here yesterday as well for same states did not have chest pain then WRITER WRITER documented in this encounter Plan of Treatment Upcoming Encounters Date Type Department Care Team (Late st Contact Info) Description 07/04/2024 9:00 AM CDT Lab [facility] Cancer [address] [phone] Case Samuel MD [address] [place] [address], [address] [place] [id number] 07/06/2024 8:00 AM CDT Appointment [facility] Advanced Treatment [address] [phone] Case Samuel MD [address] [place] [address], [address] [place], [place] [address] 07/10/2024 11:30 AM CDT Oncology Visit [facility] Cancer [address] [phone] Case Samuel MD [address] [place], [place] [address], ROOM [address] [id number] documented as of this encounter Goals Goal Patient Goal Type Associated Problems Recent Progress Patient-Stated? Author Pain Management General On track( 025 12:40 PM BOND WRITER) Yes Juhi Benson, RN Note: Goal Statement: [...] CHEST 2 VIEWS STAT 05/20/2024 9:30 AM BOND WRITER EXTRA TUBE STAT 05/20/2024 9:09 AM BOND WRITER EXTRA GREEN TOP (LITHIUM HEPARIN) TUBE STAT 05/20/2024 9:09 AM BOND WRITER RBC AND PLATELET MORPHOLOGY STAT 05/20/2024 9:09 AM BOND WRITER CBC WITH PLATELETS AND DIFFERENTIAL STAT 05/20/2024 9:09 AM BOND WRITER CBC WITH PLATELETS & DIFFERENTIAL STAT 05/20/2024 9:09 AM BOND WRITER RETICULOCYTE COUNT STAT 05/20/2024 9: 09 AM BOND WRITER BASIC METABOLIC PANEL STAT 05/20/2024 9:09 AM BOND WRITER BASIC METABOLIC PANEL STAT 05/20/2024 8:21 AM BOND WRITER ECG 12-LEAD WITH MUSE SJN,SJO,WWH STAT 05/20/2024 7:36 AM BOND WRITER documented in this encounter Results * Chest XR, PA & LAT (05/20/2024 9:30 AM BOND WRITER) Anatomical Region Laterality Modality Chest Digital Radiogra phy 05/20/2024 9:30 AM BOND WRITER Impressions 05/20/2024 9:38 AM BOND WRITER IMPRESSION: Slightly increased bilateral mid to lower lung patchy opacities which may reflect atelectatic changes or pneumonic infiltrates. No pleural effusion. Normal heart size. Multiple H-shaped thoracic vertebra consistent with the history of sickle cell disease. Narrative 05/20/2024 9:38 AM BOND WRITER EXAM: XR CHEST 2 VIEWS LOCATION: [facility] DATE: 05/20/2024 INDICATION: Chest pain, sickle cell patient COMPARISON: Chest x-ray 05/08/2024 Procedure Note Twin Marin MD - 05/20/2024 EXAM: XR CHEST 2 VIEWS LOCATION: [facility] DATE: 05/20/2024 INDICATION: Chest pain, sickle [...] RBC and Platelet Morphology (05/20/2024 9:09 AM BOND WRITER) RBC Morphology Confirmed RBC Indices 05/20/2024 9:47 AM [facility] Platelet Assessment Automated Count Confirmed. Platelet morphology is normal. Automated Count Confirmed. Platelet morphology is normal. JARET 05/20/2024 9:47 AM BOND WRITER [facility] Polychromasia Slight(A) None Seen JARET 05/20/2024 9:47 AM [facility] Reactive Lymphocytes Present(A) None Seen JARET 05/20/2024 9:47 AM [facility] Sickle Cells Moderate(A) None Seen JARET 05/20/2024 9:47 AM [facility] Target Cells Slight(A) None Seen JARET 05/20/2024 9:47 AM [facility] Blood VENOUS LINE / Unknown Venipuncture / Unknown 05/20/2024 9:09 AM BOND WRITER 05/20/2024 9:14 AM BOND WRITER Stiven Madsen MD LAB - BLOOD ORDERABLES Final Result [facility] [address] [place], [place] [address], [place] * (ABNORMAL) Basic metabolic panel (05/20/2024 9:09 AM BOND WRITER) Sodium 137 135 - 145 mmol/L 05/20/2024 9:42 AM [facility] Potassium 4.8 3.4 - 5.3 mmol/L 05/20/2024 9:42 AM [facility] Chloride 105 98 - 107 mmol/L 05/20/2024 9:42 AM [facility] Carbon Dioxide (CO2) 22 22 - 29 mmol/L 05/20/2024 9:42 AM [facility] Anion Gap 10 7 - 15 mmol/L 05/20/2024 9:42 AM [facility] Urea Nitrogen 7.4 6.0 - 20.0 mg/dL 05/20/2024 9:42 AM [facility] Creatinine 0.82 0.51 - 0.95 mg/dL 05/20/2024 9:42 AM [facility] GFR Estimate >90 >60 mL/min/1.7 3m2 05/20/2024 9:42 AM [facility] Comment:eGFR calculated usin g 2020 CKD-EPI equation. Calcium 9.3 8.8 - 10.4 mg/dL 05/20/2024 9:42 AM [facility] Comment:Reference intervals for this test were updated on 11/09/2023 to reflect our healthy population more accurately. There may be differences in the flagging of prior results with similar values performed with this method. Those prior results can be interpreted in the context of the updated reference intervals. Glucose 107(H) 70 - 99 mg/dL 05/20/2024 9:42 AM [facility] Blood VENOUS LINE / Unknown Venipuncture / Unknown 05/20/2024 9:09 AM BOND WRITER 05/20/2024 9:14 AM [facility] us Stiven Madsen MD LAB - BLOOD ORDERABLES Final Result [facility] [address] [place] [address], [place] * Extra Green Top ([place] Heparin) Tube (05/20/2024 9:09 AM [facility]) Hold Specimen JIC 05/20/2024 10:16 AM [facility] Blood VENOUS LINE / Unknown Venipuncture / Unknown 05/20/2024 9:09 AM BOND WRITER 05/20/2024 9:14 AM [facility] Deshawn Arredondo MD LAB - BLOOD ORDERABLES Liss bola Result [facility] [address] [place], [place] [address] * (ABNORMAL) CBC with platelets and differential (05/20/2024 9:09 AM [facility]) WBC Count 16.0(H) 4.0 - 11.0 10e3/uL 05/20/2024 9:47 AM [facility] RBC Count 2.57(L) 3.80 - 5.20 10e6/uL 05/20/2024 9:47 AM [facility] Hemoglobin 8.4(L) 11.7 - 15.7 g/dL 05/20/2024 9:47 AM [facility] Hematocrit 23.7(L) 35.0 - 47.0 % 05/20/2024 9:47 AM [facility] MCV 92 78 - 100 fL 05/20/2024 9:47 AM [facility] MCH 32.7 26.5 - 33.0 pg 05/20/2024 9:47 AM [facility] MCHC 35.4 31.5 - 36.5 g/dL 05/20/2024 9:47 AM [facility] RDW 22.8(H) 10.0 - 15.0 % 05/20/2024 9:47 AM [facility] Platelet Count 541(H) 150 - 450 10e3/uL 05/20/2024 9:47 AM [facility] % Neutrophils 59 % 05/20/2024 9:47 AM [facility] % Lymphocytes 23 % 05/20/2024 9:47 AM [facility] % Monocytes 15 % 05/20/2024 9:47 AM [facility] % Eosinophils 2 % 05/20/2024 9:47 AM [facility] % Basophils 1 % 05/20/2024 9:47 AM [facility] % Immature Granulocytes 1 % 05/20/2024 9:47 AM [facility] NRBCs per 100 WBC 2(H) <1 /100 025 9:47 AM [facility] Absolute Neutrophils 9.4(H) 1.6 - 8.3 10e3/uL 05/20/2024 9:47 AM [facility] Absolute Lymphocytes 3.6 0.8 - 5.3 10e3/uL 05/20/2024 9:47 AM [facility] Absolute Monocytes 2.4(H) 0.0 - 1.3 10e3/uL 05/20/2024 9:47 AM [facility] Absolute Eosinophils 0.3 0.0 - 0.7 10e3/uL 05/20/2024 9:47 AM [facility] Absolute Basophils 0.2 0.0 - 0.2 10e3/uL 05/20/2024 9:47 AM [facility] Absolute Immature Granulocytes 0.2 <=0.4 10e3/uL 05/20/2024 9:47 AM [facility] Absolute NRBCs 0.2 10e3/uL 05/20/2024 9:47 AM [facility] Blood VENOUS LINE / Unknown Venipuncture / Unknown 05/20/2024 9:09 AM BOND WRITER 05/20/2024 9:14 AM [facility] us Stiven Madsen MD LAB - BLOOD ORDERABLES Final Result [facility] [address] [place] [address], [facility] * (ABNORMAL) Reticulocyte count (05/20/2024 9:09 AM [facility]) [facility] % Reticulocyte 25.1(H) 0.5 - 2.0 % 05/20/2024 9:19 AM [facility] Absolute Reticulocyte 0.646(H) 0.025 - 0.095 10e6/uL 05/20/2024 9:19 AM [facility] Blood VENOUS LINE / Unknown Venipuncture / Unknown 05/20/2024 9:09 AM BOND WRITER 05/20/2024 9:14 AM BOND WRITER Stiven Madsen MD LAB - BLOOD ORDERABLES Final Result [facility] [address] [place] [address], [facility] * (ABNORMAL) Basic metabolic panel (05/20/2024 8:21 AM BOND WRITER) Sodium 136 135 - 145 mmol/L 05/20/2024 8:47 AM [facility] Potassium 5.1 3.4 - 5.3 mmol/L 05/20/2024 8:47 AM [facility] Chloride 105 98 - 107 mmol/L 05/20/2024 8:47 AM [facility] Carbon Dioxide (CO2) 21(L) 22 - 29 mmol/L 05/20/2024 8:47 AM [facility] Anion Gap 10 7 - 15 mmol/L 05/20/2024 8:47 AM [facility] Urea Nitrogen 7.5 6.0 - 20.0 mg/dL 05/20/2024 8:47 AM [facility] Creatinine 0.84 0.51 - 0.95 mg/dL 05/20/2024 8:47 AM [facility] GFR Estimate >90 >60 mL/min/1.7 3m2 05/20/2024 8:47 AM [facility] Comment:eGFR calculated usin g 2020 CKD-EPI equation. Calcium 9.1 8.8 - 10.4 mg/dL 05/20/2024 8:47 AM [facility] Comment:Reference intervals for this test were updated on 11/09/2023 to reflect our healthy population more accurately. There may be differences in the flagging of prior results with similar values performed with this method. Those prior results can be interpreted in the context of the updated reference intervals. Glucose 95 70 - 99 mg/dL 05/20/2024 8:47 AM [facility] Blood VENOUS LINE / Unknown Venipuncture / Unknown 05/20/2024 8:21 AM BOND WRITER 05/20/2024 8:31 AM BOND WRITER Stiven Madsen MD LAB - BLOOD ORDERABLES Final Result [facility] [address] [place] [address], [facility] * ECG 12-LEAD WITH MUSE (LHE) (05/20/2024 7:36 AM BOND WRITER) Systolic Blood Pressure 111 mmHg RADIOLOGY RESULTS Diastolic Blood Pressure 56 mmHg RADIOLOGY RESULTS Ventricular Rate 86 BPM RAD IOLOGY RESULTS Atrial Rate 86 BPM RADIOLOG Y RESULTS [place] Interval 154 ms RADIOLOG Y RESULTS QRS Duration 78 ms RADIOLO GY RESULTS QT 370 ms RADIOLOGY RESULTS QTc 442 ms RADIOLOGY RESULTS P [place] 18 degrees RADIOLOGY RESULTS R AXIS 55 degrees RADIOLOGY RESULTS T [place] 25 degrees RADIOLOGY RESULTS Interpretation ECG Sinus rhythm Nonspecific T wave abnormality Abnormal ECG When compared with ECG of 14-May-2024 22:12, Nonspecific T wave abnormality now evident in Inferior leads Confirmed by SEE ED PROVIDER NOTE FOR, ECG INTERPRETATION ([id number]), supervising editor news reel Neeraj Allison ([id number]) on 05/20/2024 7:48:17 AM RADIOLOGY RESULTS 05/20/2024 7:36 AM BOND WRITER 05/20/2024 7:48 AM BOND WRITER us Deshawn Arredondo MD ECG ORDERABLES Edited [...] For 1 dose $Given 05/20/2024 9:59 AM BOND WRITER 25 mg HYDROmorphone (DILAUDID) injection 2 mg 2 mg, Intravenous, EVERY HOUR, First dose on 05/20/24 at 0800, For 3 doses $Given 05/20/2024 10:58 AM BOND WRITER 2 mg $Given 05/20/2024 9:56 AM BOND WRITER 2 mg $Given 05/20/2024 8:22 AM BOND WRITER 2 mg lactated ringers infusion at 500 mL/hr, Intravenous, CONTINUOUS, Starting on 05/20/24 at 0800, Until 05/20/24 at 0959 Restarted 05/20/2024 9:30 AM BOND WRITER 500 mL/hr $New Bag 05/20/2024 8:22 AM BOND WRITER 500 mL/hr ondansetron (ZOFRAN) injection 8 mg 8 mg, Intravenous, EVERY 6 HOURS PRN, nausea, vomiting, Administer over 2-5 Minutes, Starting on 05/20/24 at 0744 $Given 05/20/2024 8:22 AM BOND WRITER 8 mg documented in this encounter Active and Recently Administered Medications Times are shown in BOND WRITER. Scheduled Medication Order 05/18/2024 05/19/2024 05/20/2024 diphenhydrAMINE [...] RN) documented in this encounter Care Teams Payroll Manager Relationship Specialty Start Date End Date No Ref-Primary, Physician PCP - General 03/15/24 06/17/24 Mor Ramsey Medical Student 04/03/24 Case Samuel MD [address] [place] [address], [address] [place] [address] Assigned Pediatric Specialist Provider 05/18/24 documented as of this encounter
--- OUTSIDE RECORDS SUMMARY | 2024-07-03 21:31 | XMS_ITS | Encounter Summary ---
Author Organization [place] Address [address] [place] [address]. [place] [address] Care Team Providers Care Aix System Administrator Name Role Phone No Ref-Primary, Physician Primary Care Provider Mor Ramsey Unavailable Unavailable Case Samuel MD Unavailable [phone] Reason for Visit * Reason Comments Chest Pain Sickle Cell Pain Crisis Encounter Details Date Type Department Care Team (Late st Contact Info) Description 05/22/2024 3:27 PM PANEL INSTRUMENT REPAIRER - 05/22/2024 6:55 PM PANEL INSTRUMENT REPAIRER Emergency [facility] Emergency Room [facility] [place] [address] Bernabe Farley MD [facility] [address] [place] [id number] Sickle cell pain crisis (H) Discharge Disposition: [...] on file Legal Sex Female 8:25 AM PANEL INSTRUMENT REPAIRER Gender Identity Not on file Sexual Orientation Not on file documented as of this encounter Last Filed Vital Signs Vital Sign Reading Time Taken Comments Blood Pressure 111/59 05/22/2024 6:53 PM PANEL INSTRUMENT REPAIRER Pulse 106 05/22/2024 6:52 PM PANEL INSTRUMENT REPAIRER Temperature 36.7 C (98.1 F) 05/22/2024 3:11 PM PANEL INSTRUMENT REPAIRER Respiratory Rate 20 05/22/2024 3:11 PM PANEL INSTRUMENT REPAIRER Oxygen Saturation 95% 05/22/2024 6:52 PM PANEL INSTRUMENT REPAIRER Inhaled Oxygen Concentration - - Weight 51.7 kg (114 lb) 05/22/2024 3:11 PM PANEL INSTRUMENT REPAIRER Height 154.9 cm (5' 1) 05/22/2024 3:11 PM PANEL INSTRUMENT REPAIRER Body Mass Index 21.54 05/22/2024 3:11 PM PANEL INSTRUMENT REPAIRER documented in this encounter Discharge Instructions * Attachments The following attachments cannot be sent through Care Everywhere. * Sickle Cell Crisis (Hungarian) documented in this encounter Medications at Time [...] RN - 05/22/2024 6:29 PM CST Bed: [facility] Expected date: Expected time: Means of arrival: Comments: Crash L INSTRUMENT REPAIRER * Bernabe Farley MD - 05/22/2024 3:27 [...] April. Today will be the 16th visit. [id number] Patient is a 29-year-old woman with history [...] and Inpatient Record: Patient was seen at [facility] ED on 05/20/23 Care impacted [...] Per chart review, patient was seen at [facility] ED on 05/20/24 for sickle [...] has seen the oncologist at the [facility] and has future follow-up appointments [...] my direction. Bernabe Farley M.D. Emergency Medicine [facility] EMERGENCY ROOM [address] [facility] [phone] Dept: [phone] Bernabe Farley MD 05/22/245 L INSTRUMENT REPAIRER * Sanjay Purdy RN - 05/22/2024 3:10 [...] WDL Cognitive/Neuro/Behavioral WDL Cognitive/Neuro/Behavioral WDL WDL L INSTRUMENT REPAIRER documented in this encounter Plan of Treatment Upcoming Encounters Date Type Department Care Team (Late st Contact Info) Description 07/04/2024 9:00 AM CDT Lab [facility] [address] [place] [address] Case Samuel MD [address] [place] [address], [address] [place], [place] [id number] 07/06/2024 8:00 AM CDT Appointment [facility] [place] [address] [place] [phone] Case Samuel MD [address] [facility] 484, [address] [place], [place] [address] 07/10/2024 11:30 AM CDT Oncology Visit [facility] [address] [place] [address] Case Samuel MD [address] [facility] 484, [address] [place], [place] [id number] documented as of this encounter Goals Goal Patient Goal Type Associated Problems Recent Progress Patient-Stated? Author Pain Management General On track( 025 12:40 PM PANEL INSTRUMENT REPAIRER) Yes Juhi Benson RN Note: Goal Statement: [...] CHEST 2 VIEWS STAT 05/22/2024 5:19 PM PANEL INSTRUMENT REPAIRER RBC AND PLATELET MORPHOLOGY STAT 05/22/2024 3:51 PM PANEL INSTRUMENT REPAIRER CBC WITH PLATELETS AND DIFFERENTIAL STAT 05/22/2024 3:51 PM PANEL INSTRUMENT REPAIRER CBC WITH PLATELETS & DIFFERENTIAL STAT 05/22/2024 3:51 PM PANEL INSTRUMENT REPAIRER BASIC METABOLIC PANEL STAT 05/22/2024 3:51 PM PANEL INSTRUMENT REPAIRER ECG 12-LEAD WITH MUSE [facility] STAT 05/22/2024 3:14 PM PANEL INSTRUMENT REPAIRER documented in this encounter Results * Chest XR, PA & LAT (05/22/2024 5:19 PM PANEL INSTRUMENT REPAIRER) Anatomical Region Laterality Modality Chest Digital Radiogra phy 05/22/2024 5:19 PM PANEL INSTRUMENT REPAIRER Impressions 05/22/2024 5:42 PM PANEL INSTRUMENT REPAIRER IMPRESSION: Unchanged ill-defined hazy opacities in the peripheral right lung, which may correspond with nodular opacities seen on CT chest dated 05/04/2024. No new focal airspace disease. No pleural effusion or pneumothorax. The cardiomediastinal silhouette is unremarkable. Narrative 05/22/2024 5:42 PM PANEL INSTRUMENT REPAIRER EXAM: XR CHEST 2 VIEWS LOCATION: [facility] DATE: 05/22/2024 INDICATION: L chest pain, concern for acute chest syndome COMPARISON: 05/20/2024, CT chest 05/04/2024 Procedure Note Robert Marks MD - 05/22/2024 EXAM: XR CHEST 2 VIEWS LOCATION: [facility] DATE: 05/22/2024 INDICATION: L chest pain, [...] RBC and Platelet Morphology (05/22/2024 3:51 PM PANEL INSTRUMENT REPAIRER) Pathologist [facility] RBC Morphology Confirmed RBC Indices 05/22/2024 4:30 PM PANEL INSTRUMENT REPAIRER [facility] Platelet Assessment Automated Count Confirmed. Giant platelets are present.(A) Automated Count Confirmed. Platelet morphology is normal. JARET 05/22/2024 4:30 PM PANEL INSTRUMENT REPAIRER [facility] Giant Platelets Slight(A) None Seen JARET 05/22/2024 4:30 PM PANEL INSTRUMENT REPAIRER [facility] Elliptocytes Slight(A) None Seen JARET 05/22/2024 4:30 PM [facility] [place]iegler[place] Bodies Present(A) None Seen JARET 05/22/2024 4:30 PM PANEL INSTRUMENT REPAIRER [facility] Polychromasia Slight(A) None Seen JARET 05/22/2024 4:30 PM [facility] RBC Fragments Slight(A) None Seen JARET 05/22/2024 4:30 PM [facility] Sickle Cells Moderate(A) None Seen JARET 05/22/2024 4:30 PM [facility] Target Cells Slight(A) None Seen [facility] 05/22/2024 4:30 PM [facility] Blood VENOUS LINE / Unknown Venipuncture / Unknown 05/22/2024 3:51 PM PANEL INSTRUMENT REPAIRER 05/22/2024 3:54 PM PANEL INSTRUMENT REPAIRER Bernabe Farley MD LAB - BLOOD ORDERABLES Final Result [facility] [address] [place] [address], [facility] * (ABNORMAL) CBC with platelets and differential (05/22/2024 3:51 PM PANEL INSTRUMENT REPAIRER) WBC Count 14.5(H) 4.0 - 11.0 10e3/uL 05/22/2024 4:30 PM [facility] RBC Count 2.59(L) 3.80 - 5.20 10e6/uL 05/22/2024 4:30 PM [facility] Hemoglobin 8.2(L) 11.7 - 15.7 g/dL 05/22/2024 4:30 PM [facility] Hematocrit 23.4(L) 35.0 - 47.0 % 05/22/2024 4:30 PM [facility] MCV 90 78 - 100 fL 05/22/2024 4:30 PM [facility] MCH 31.7 26.5 - 33.0 pg 05/22/2024 4:30 PM [facility] MCHC 35.0 31.5 - 36.5 g/dL 05/22/2024 4:30 PM [facility] RDW 22.9(H) 10.0 - 15.0 % 05/22/2024 4:30 PM [facility] Platelet Count 552(H) 150 - 450 10e3/uL 05/22/2024 4:30 PM [facility] % Neutrophils 53 % 05/22/2024 4:30 PM [facility] % Lymphocytes 30 % 05/22/2024 4:30 PM [facility] % Monocytes 14 % 05/22/2024 4:30 PM [facility] % Eosinophils 1 % 05/22/2024 4:30 PM [facility] % Basophils 1 % 05/22/2024 4:30 PM [facility] % Immature Granulocytes 1 % 05/22/2024 4:30 PM [facility] NRBCs per 100 WBC 2(H) <1 /100 025 4:30 PM [facility] Absolute Neutrophils 7.7 1.6 - 8.3 10e3/uL 05/22/2024 4:30 PM [facility] Absolute Lymphocytes 4.3 0.8 - 5.3 10e3/uL 05/22/2024 4:30 PM [facility] Absolute Monocytes 2.0(H) 0.0 - 1.3 10e3/uL 05/22/2024 4:30 PM [facility] Absolute Eosinophils 0.1 0.0 - 0.7 10e3/uL 05/22/2024 4:30 PM [facility] Absolute Basophils 0.2 0.0 - 0.2 10e3/uL 05/22/2024 4:30 PM [facility] Absolute Immature Granulocytes 0.2 <=0.4 10e3/uL 05/22/2024 4:30 PM [facility] Absolute NRBCs 0.3 10e3/uL 05/22/2024 4:30 PM [facility] Blood VENOUS LINE / Unknown Venipuncture / Unknown 05/22/2024 3:51 PM PANEL INSTRUMENT REPAIRER 05/22/2024 3:54 PM PANEL INSTRUMENT REPAIRER Bernabe Farley MD LAB - BLOOD ORDERABLES Final Result [facility] [address] [facility] [place] [address], [facility] * (ABNORMAL) Basic metabolic panel (05/22/2024 3:51 PM PANEL INSTRUMENT REPAIRER) Sodium 138 135 - 145 mmol/L 05/22/2024 4:12 PM [facility] Potassium 4.8 3.4 - 5.3 mmol/L 05/22/2024 4:12 PM [facility] Chloride 107 98 - 107 mmol/L 05/22/2024 4:12 PM [facility] Carbon Dioxide (CO2) 20(L) 22 - 29 mmol/L 05/22/2024 4:12 PM [facility] Anion Gap 11 7 - 15 mmol/L 05/22/2024 4:12 PM [facility] Urea Nitrogen 9.9 6.0 - 20.0 mg/dL 05/22/2024 4:12 PM [facility] Creatinine 0.91 0.51 - 0.95 mg/dL 05/22/2024 4:12 PM [facility] GFR Estimate 87 >60 mL/min/1.7 3m2 05/22/2024 4:12 PM [facility] Comment:eGFR calculated usin g 2020 CKD-EPI equation. Calcium 9.6 8.8 - 10.4 mg/dL 05/22/2024 4:12 PM [facility] Comment:Reference intervals for this test were updated on 11/09/2023 to reflect our healthy population more accurately. There may be differences in the flagging of prior results with similar values performed with this method. Those prior results can be interpreted in the context of the updated reference intervals. Glucose 100(H) 70 - 99 mg/dL 05/22/2024 4:12 PM [facility] Blood VENOUS LINE / Unknown Venipuncture / Unknown 05/22/2024 3:51 PM PANEL INSTRUMENT REPAIRER 05/22/2024 3:54 PM PANEL INSTRUMENT REPAIRER us Bernabe Farley MD LAB - BLOOD ORDERABLES Final Result Performing Organization Address [facility]/ZIP Co de Phone Number [facility] [address] [place] [address], [place] * ECG 12-LEAD WITH MUSE (LHE) (05/22/2024 3:14 PM PANEL INSTRUMENT REPAIRER) Systolic Blood Pressure mmHg RADIOLOGY RESULTS Diastolic Blood Pressure mmHg RADIOLOGY RESULTS Ventricular Rate 103 BPM RAD IOLOGY RESULTS Atrial Rate 103 BPM RADIOLOG Y RESULTS CO Interval 124 ms RADIOLOG Y RESULTS QRS Duration 80 ms RADIOLO GY RESULTS QT 316 ms RADIOLOGY RESULTS QTc 413 ms RADIOLOGY RESULTS P Dazey 82 degrees RADIOLOGY RESULTS R AXIS 90 degrees RADIOLOGY RESULTS T Dazey 70 degrees RADIOLOGY RESULTS Interpretation ECG Sinus tachycardia Rightward axis Borderline ECG When compared with ECG of 20-May-2024 07:36, Nonspecific T wave abnormality no longer evident in Anterior leads Confirmed by SEE ED PROVIDER NOTE FOR, ECG INTERPRETATION (4000), editor in chief Leticia Warner ([id number]) on 05/22/2024 4:13:58 PM RADIOLOGY RESULTS 05/22/2024 3:14 PM PANEL INSTRUMENT REPAIRER 05/22/2024 4:13 PM PANEL INSTRUMENT REPAIRER us Bernabe Farley MD ECG ORDERABLES Edited [...] For 1 dose $Given 05/22/2024 4:00 PM PANEL INSTRUMENT REPAIRER 25 mg HYDROmorphone (DILAUDID) injection 2 mg 2 mg, Intravenous, EVERY 1 HOUR PRN, severe pain, Starting on Wed05/22/24 at 1537, For 3 doses $Given 05/22/2024 6:39 PM PANEL INSTRUMENT REPAIRER 2 mg $Given 05/22/2024 5:33 PM PANEL INSTRUMENT REPAIRER 2 mg $Given 05/22/2024 4:00 PM PANEL INSTRUMENT REPAIRER 2 mg lactated ringers BOLUS 500 mL Intravenous, 500 mL, ONCE, On Wed05/22/24 at 1600, For 1 dose $New Bag 05/22/2024 4:13 PM PANEL INSTRUMENT REPAIRER 500 mLs ondansetron (ZOFRAN) injection 4 mg 4 mg, Intravenous, ONCE, Administer over 2-5 Minutes, On Wed05/22/24 at 1600, For 1 dose $Given 05/22/2024 4:00 PM PANEL INSTRUMENT REPAIRER 4 mg documented in this encounter Active and Recently Administered Medications Times are shown in PANEL INSTRUMENT REPAIRER. Scheduled Medication Order 05/20/2024 05/21/2024 05/22/2024 diphenhydrAMINE [...] SOFIA) documented in this encounter Care Teams Aix System Administrator Relationship Specialty Start Date End Date No Ref-Primary, Physician PCP - General 03/15/24 06/17/24 Mor Ramsey Medical Student 04/03/24 Case Samuel MD [address] [place] [address] 484, [address] [place] [address] Assigned Pediatric Specialist Provider 05/18/24 documented as of this encounter
--- OUTSIDE RECORDS SUMMARY | 2024-07-03 21:31 | XMS_ITS | Encounter Summary ---
Author Organization [place] Address [address] [place] [address]. [place] [address] Care Team Providers Care Buyer Renter Name Role Phone No Ref-Primary, Physician Primary Care Provider Mor Ramsey Unavailable Unavailable Case Samuel MD Unavailable [phone] Juhi Benson RN Unavailable Unavailable Reason for Visit * Reason Comments Sickle Cell Pain Crisis Encounter Details Date Type Department Care Team (Late st Contact Info) Description 05/28/2024 11:56 PM ECONOMIST RESEARCH ASSISTANT - 05/29/2024 3:54 AM ECONOMIST RESEARCH ASSISTANT Emergency [facility] Emergency Room [facility] [place] [address] Lenin Smith MD [address] [place] [id number] Sickle cell disease with crisis (H) Discharge [...] on file Legal Sex Female 8:25 AM ECONOMIST RESEARCH ASSISTANT Gender Identity Not on file Sexual Orientation Not on file documented as of this encounter Last Filed Vital Signs Vital Sign Reading Time Taken Comments Blood Pressure 123/66 05/29/2024 3:15 AM ECONOMIST RESEARCH ASSISTANT Pulse 87 05/29/2024 3:15 AM ECONOMIST RESEARCH ASSISTANT Temperature 36.6 C (97.9 F) 05/29/2024 12:01 AM ECONOMIST RESEARCH ASSISTANT Respiratory Rate 18 05/29/2024 12:01 AM ECONOMIST RESEARCH ASSISTANT Oxygen Saturation 93% 05/29/2024 3:15 AM ECONOMIST RESEARCH ASSISTANT Inhaled Oxygen Concentration - - Weight 51.7 kg (114 lb) 05/29/2024 12:01 AM ECONOMIST RESEARCH ASSISTANT Height 154.9 cm (5' 1) 05/29/2024 12:01 AM ECONOMIST RESEARCH ASSISTANT Body Mass Index 21.54 05/29/2024 12:01 AM ECONOMIST RESEARCH ASSISTANT documented in this encounter Discharge Instructions [...] time. Patient comfortable and agrees with plan. OMIST RESEARCH ASSISTANT * Lenin Smith MD - 05/29/2024 12:17 [...] go home. Has an appointment with her sizer machine today. Will follow-up then. No indication for [...] with other provider:Did you involve another provider (linux consultant, , pharmacy, etc.)?: No Discharge. No [...] information was obtained from: Patient Use of Enterostomal Therapy Nurse: N/A Gianna Hernández is a 29 [...] daughters second birthdayand they walked around the [facility], patient believes she might have over [...] home in stable condition. 05/25 Admission to [facility] for bilateral port placements with apheresis port on right and smart port on left. 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 Recently moved to [place] from [place], [place]. She is 1 of 9 [...] Socially Integrated (03/28/2024) Received from [facility] [employer] [facility] Social Connections Do you often feel lonely [...] my direction. Lenin Smith M.D. Emergency Medicine [facility] EMERGENCY ROOM [facility] [address] Dept: [phone] Lenin Smith MD 05/29/24 0412 OMIST RESEARCH ASSISTANT * Moy Stewart RN - 05/29/2024 12:02 [...] WDL WDL Cognitive/Neuro/Behavioral WDL Cognitive/Neuro/Behavioral WDL WDL OMIST RESEARCH ASSISTANT documented in this encounter Plan of Treatment Upcoming Encounters Date Type Department Care Team (Late st Contact Info) Description 07/04/2024 9:00 AM CDT Lab [facility] [address] [phone] Case Samuel MD [address] [place] [address], [address] [address] 07/06/2024 8:00 AM CDT Appointment [facility] [address] [phone] Case Samuel MD [address] [place] [address] 484, [address] [place], [place] [address] 07/10/2024 11:30 AM CDT Oncology Visit [facility] [address] [phone] Case Samuel MD [address] [place], [place] [address], [address] [address] documented as of this encounter Goals Goal Patient Goal Type Associated Problems Recent Progress Patient-Stated? Author Pain Management General On track( 025 12:40 PM ECONOMIST RESEARCH ASSISTANT) Yes Juhi Benson, SOFIA Note: Goal [...] MANUAL DIFFERENTIAL STAT 05/29/2024 1 2:53 AM ECONOMIST RESEARCH ASSISTANT CBC WITH PLATELETS AND DIFFERENTIAL STAT 05/29/2024 12:53 AM ECONOMIST RESEARCH ASSISTANT CBC WITH PLATELETS & DIFFERENTIAL STAT 05/29/2024 12:53 AM ECONOMIST RESEARCH ASSISTANT RETICULOCYTE COUNT STAT 05/29/2024 12 :53 AM ECONOMIST RESEARCH ASSISTANT documented in this encounter Results * (ABNORMAL) Manual Differential (05/29/2024 12:53 AM ECONOMIST RESEARCH ASSISTANT) % Neutrophils 54 % JARET 05/29/2024 1:58 AM [facility] % Lymphocytes 34 % JARET 05/29/2024 1:58 AM RESEARCH [facility] % Monocytes 10 % JARET 05/29/2024 1:58 AM [facility] % Eosinophils 1 % JARET 05/29/2024 1:58 AM [facility] % Basophils 1 % JARET 05/29/2024 1:58 AM [facility] Absolute Neutrophils 8.4(H) 1.6 - 8.3 10e3/uL JARET 05/29/2024 1:58 AM [facility] Absolute Lymphocytes 5.3 0.8 - 5.3 10e3/uL JARET 05/29/2024 1:58 AM [facility] Absolute Monocytes 1.6(H) 0.0 - 1.3 10e3/uL JARET 05/29/2024 1:58 AM [facility] Absolute Eosinophils 0.2 0.0 - 0.7 10e3/uL JARET 05/29/2024 1:58 AM [facility] Absolute Basophils 0.2 0.0 - 0.2 10e3/uL JARET 05/29/2024 1:58 AM [facility] NRBCs per 100 WBC 3 % JARET 05/29/2024 1:58 AM [facility] Absolute NRBCs 0.5 10e3/uL JARET 05/29/2024 1:58 AM [facility] RBC Morphology Confirmed RBC Indices JARET 05/29/2024 1:58 AM [facility] Platelet Assessment Automated Count Confirmed. Platelet morphology is normal. Automated Count Confirmed. Platelet morphology is normal. [facility] 05/29/2024 1:58 AM [facility] Polychromasia Moderate(A) None Seen [facility] 05/29/2024 1:58 AM [facility] Sickle Cells Moderate(A) None Seen [facility] 05/29/2024 1:58 AM [facility] Blood VENOUS LINE / Unknown Venipuncture / Unknown 05/29/2024 12:53 AM [facility] 05/29/2024 12:58 AM [facility] us Lenin Smith MD LAB - BLOOD ORDERABLES Final Result [facility] [address] [place], [place] [id number] [place] [address] * (ABNORMAL) CBC with platelets and differential (05/29/2024 12:53 AM [facility]) WBC Count 15.6(H) 4.0 - 11.0 10e3/uL 05/29/2024 1:58 AM [facility] RBC Count 2.09(L) 3.80 - 5.20 10e6/uL 05/29/2024 1:58 AM [facility] Hemoglobin 6.7(LL) 11.7 - 15.7 g/dL 05/29/2024 1:58 AM [facility] Hematocrit 19.2(L) 35.0 - 47.0 % 05/29/2024 1:58 AM [facility] MCV 92 78 - 100 fL 05/29/2024 1:58 AM [facility] MCH 32.1 26.5 - 33.0 pg 05/29/2024 1:58 AM [facility] MCHC 34.9 31.5 - 36.5 g/dL 05/29/2024 1:58 AM [facility] RDW 23.0(H) 10.0 - 15.0 % 05/29/2024 1:58 AM ECONOMIST RESEARCH ASSISTANT [facility] Platelet Count 405 150 - 450 10e3/uL 05/29/2024 1:58 AM ECONOMIST RESEARCH ASSISTANT [facility] Blood VENOUS LINE / Unknown Venipuncture / Unknown 05/29/2024 12:53 AM ECONOMIST RESEARCH ASSISTANT 05/29/2024 12:58 AM ECONOMIST RESEARCH ASSISTANT Lenin Smith MD LAB - BLOOD ORDERABLES Final Result Performing Organization Address [facility] Co de Phone Number [facility] [address] [place] [address] [place] [id number], [facility] * (ABNORMAL) Reticulocyte count (05/29/2024 12:53 AM ECONOMIST RESEARCH ASSISTANT) [facility] % Reticulocyte 28.6(H) 0.5 - 2.0 % 05/29/2024 1:27 AM ECONOMIST RESEARCH ASSISTANT [facility] Absolute Reticulocyte 0.616(H) 0.025 - 0.095 10e6/uL 05/29/2024 1:27 AM [facility] Blood VENOUS LINE / Unknown Venipuncture / Unknown 05/29/2024 12:53 AM ECONOMIST RESEARCH ASSISTANT 05/29/2024 12:58 AM ECONOMIST RESEARCH ASSISTANT Lenin Smith MD LAB - BLOOD ORDERABLES Final Result Performing Organization Address [facility] de Phone Number [facility] [address] [place] [address] [place] [address], [facility] documented in this [...] For 1 dose $Given 05/29/2024 1:26 AM ECONOMIST RESEARCH ASSISTANT 25 mg heparin lock flush 10 unit/mL [...] each port lumen $Given 05/29/2024 3:38 AM ECONOMIST RESEARCH ASSISTANT 5 mLs HYDROmorphone (DILAUDID) injection 2 mg 2 mg, Intravenous, EVERY 1 HOUR PRN, severe pain, moderate pain, Starting on Wed05/29/24 at 0010, For 3 doses $Given 05/29/2024 3:37 AM ECONOMIST RESEARCH ASSISTANT 2 mg $Given 05/29/2024 2:37 AM ECONOMIST RESEARCH ASSISTANT 2 mg $Given 05/29/2024 1:19 AM ECONOMIST RESEARCH ASSISTANT 2 mg lactated ringers BOLUS 1,000 mL Intravenous, 1,000 mL, ONCE, at 1,000 mL/hr, Administer over 1 Hours, On Wed05/29/24 at 0030, For 1 dose $New Bag 05/29/2024 1:01 AM ECONOMIST RESEARCH ASSISTANT 1,000 mLs 1000 mL/hr sodium chloride (PF) 0.9% PF flush 10-20 mL 10-20 mL, Intracatheter, EVERY 1 MIN PRN, line flush, post meds or blood draw, to flush each lumen of the CVC Implanted port, Starting on Wed05/29/24 at 0008, 10 mL per port lumen post IV meds; 20 mL per port lumen post post blood draw. $Given 05/29/2024 3:37 AM ECONOMIST RESEARCH ASSISTANT 10 mLs sodium chloride (PF) 0.9% PF [...] Recently Administered Medications Times are shown in ECONOMIST RESEARCH ASSISTANT. Scheduled Medication Order 05/27/2024 05/28/2024 05/29/2024 diphenhydrAMINE [...] each port lumen 0338 ($Given - Provi nsa: Tatiana Rodriguez RN) lactated ringers BOLUS 1,000 [...] lumen documented in this encounter Care Teams Buyer Renter Relationship Specialty Start Date End Date No Ref-Primary, Physician PCP - General 03/15/24 06/17/24 Mor Ramsey Medical Student 04/03/24 Case Samuel MD [address] [place] [address], [address] [place] [address] Assigned Pediatric Specialist Provider 05/18/24 Juhi Benson, SOFIA Specialty Receivable Manager Hematology & Oncology 05/29/24 documented as of this encounter
--- OUTSIDE RECORDS SUMMARY | 2024-07-03 21:32 | XMS_ITS | Encounter Summary ---
Author Organization [place] Address [address] [place] [address]. [place] [address] Care Team Providers Care Range Mechanic Name Role Phone No Ref-Primary, Physician Primary Care Provider [place] Unavailable Unavailable Case Samuel MD Unavailable [phone] Encounter Details Date Type Department Care Team [...] file Legal Sex Female 8:25 AM GENERAL II FARMWORKER Gender Identity Not on file Sexual Orientation Not on file documented as of this encounter Plan of Treatment Upcoming Encounters Date Type Department Care Team (Late st Contact Info) Description 07/04/2024 9:00 AM CDT Lab [facility] [address] [address] Case Saumel MD [address] [place] [address], ROOM [address] [id number] 07/06/2024 8:00 AM CDT Appointment [facility] Advanced Treatment [address] [address] Case Samuel MD [address] [place], [place] [address], [address] [place], [place] [address] 07/10/2024 11:30 AM CDT Oncology Visit [facility] [address] [address] Case Samuel MD [address] [place], [place] [address], ROOM [address] [id number] documented as of this encounter Goals Goal Patient Goal Type Associated Problems Recent Progress Patient-Stated? Author Pain Management General On track( 025 12:40 PM GENERAL II FARMWORKER) Yes Juhi Benson, RN Note: Goal Statement: [...] on filedocumented in this encounter Care Teams Range Mechanic Relationship Specialty Start Date End Date No Ref-Primary, Physician PCP - General 03/15/24 06/17/24 Mor Ramsey Medical Student 04/03/24 Case Samuel MD [address] [place] [address], [address] [place] [address] Assigned Pediatric Specialist Provider 05/18/24 documented as of this encounter
--- OUTSIDE RECORDS SUMMARY | 2024-07-03 21:32 | XMS_ITS | Encounter Summary ---
Author Organization [facility] Address [address] [place] [address]. [place] [address] Care Team Providers Care Truck Operator Name Role Phone No Ref-Primary, Physician Primary Care Provider [place] Ramsey Unavailable Unavailable Case Samuel MD Unavailable [phone] Encounter Details Date Type Department Care Team [...] on file Legal Sex Female 8:25 AM NEUROLOGY PHYSICIAN ASSISTANT Gender Identity Not on file Sexual Orientation Not on file documented as of this encounter Plan of Treatment Upcoming Encounters Date Type Department Care Team (Late st Contact Info) Description 07/04/2024 9:00 AM CDT Lab [facility] [address] [address] Case Samuel MD [address] [place] [address], ROOM [address] [address] 07/06/2024 8:[address] [facility] Advanced Treatment [address] [address] Case Samuel MD [address] [place], [place] [address], [address] [place], [place] [address] 07/10/2024 11:30 AM CDT Oncology Visit [facility] [address] [address] Case Samuel MD [address] [place], [place] [address], ROOM [address] [id number] documented as of this encounter Goals Goal Patient Goal Type Associated Problems Recent Progress Patient-Stated? Author Pain Management General On track( 025 12:40 PM NEUROLOGY PHYSICIAN ASSISTANT) Yes Juhi Benson, RN Note: Goal [...] on filedocumented in this encounter Care Teams Truck Operator Relationship Specialty Start Date End Date No Ref-Primary, Physician PCP - General 03/15/24 06/17/24 Mor Ramsey Medical Student 04/03/24 Case Samuel MD [address] [place] [address], [address] [place] [address] Assigned Pediatric Specialist Provider 05/18/24 documented as of this encounter
--- OUTSIDE RECORDS SUMMARY | 2024-07-03 21:32 | XMS_ITS | Encounter Summary ---
Author Organization [facility] Address [address] [place] [address] Care Team Providers Care Locomotive Supervisor Name Role Phone No Ref-Primary, Physician Primary Care Provider Mor Ramsey Unavailable Unavailable Case Samuel MD Unavailable [phone] Juhi Benson RN Unavailable Unavailable Reason for Visit * Reason Comments Sickle Cell Pain Crisis Encounter Details Date Type Department Care Team (Late st Contact Info) Description 05/31/2024 9:56 PM PRODUCT MANUFACTURING PROFESSIONAL - 06/01/2024 12:46 AM [facility] Emergency [facility] Emergency Room [facility] [place] [address] Carley Riggins MD [address] [address] Sickle cell pain crisis (H) Discharge Disposition: [...] file Legal Sex Female 8:25 AM PRODUCT MANUFACTURING PROFESSIONAL Gender Identity Not on file Sexual Orientation Not on file documented as of this encounter Last Filed Vital Signs Vital Sign Reading Time Taken Comments Blood Pressure 118/63 06/01/2024 12:41 AM PRODUCT MANUFACTURING PROFESSIONAL Pulse 71 06/01/2024 12:41 AM PRODUCT MANUFACTURING PROFESSIONAL Temperature 36.7 C (98 F) 05/31/2024 9:39 PM PRODUCT MANUFACTURING PROFESSIONAL Respiratory Rate 20 05/31/2024 9:39 PM PRODUCT MANUFACTURING PROFESSIONAL Oxygen Saturation 98% 06/01/2024 12:41 AM PRODUCT MANUFACTURING PROFESSIONAL Inhaled Oxygen Concentration - - Weight 54.4 kg (120 lb) 05/31/2024 9:39 PM PRODUCT MANUFACTURING PROFESSIONAL Height 154.9 cm (5' 1) 05/31/2024 9:39 PM PRODUCT MANUFACTURING PROFESSIONAL Body Mass Index 22.67 05/31/2024 9:39 PM PRODUCT MANUFACTURING PROFESSIONAL documented in this encounter Discharge Instructions [...] her left chest. She recently moved to [place] from [place], and notes the difference in temperature may be exacerbating her symptoms. Patient denies any other complaints at this time. 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 Recently moved to [place] from [place], [place]. She is 1 of 9 [...] Social Connections: Socially Integrated (03/28/2024) [facility] Do you often feel [...] Automated Count Confirmed. Platelet morphology is normal. Richmond Cells Slight (*) Elliptocytes Slight (*) [place] Bodies Present (*) Polychromasia Slight (*) Sickle [...] my direction. Carley Riggins M.D. Emergency Medicine [facility] EMERGENCY ROOM [address] [facility] [id number] Dept: [phone] Carley Riggins MD 06/01/24 0048 UCT MANUFACTURING PROFESSIONAL * Aminata Farley, RN - 05/31/2024 9:40 PM CST Pt is coming in with a sickle cell crisis. Pt was unable to machine pecan picker her medication d/t pharmacy needing to order it. Tylenol last at 1700 Ibuprofen last at 2100 Triage Assessment (Adult) Row Name 05/31/24 2140 Triage Assessment Airway WDL WDL Respiratory WDL Respiratory WDL WDL Skin Circulation/Temperature WDL Skin Circulation/Temperature WDL WDL Cardiac WDL Cardiac WDL WDL Peripheral/Neurovascular WDL Peripheral Neurovascular WDL WDL Cognitive/Neuro/Behavioral WDL Cognitive/Neuro/Behavioral WDL WDL UCT MANUFACTURING PROFESSIONAL documented in this encounter Plan of Treatment Upcoming Encounters Date Type Department Care Team (Late st Contact Info) Description 07/04/2024 9:00 AM CDT Lab [facility] [address] [address] Case Samuel MD [address] [place] [address], [address] [place], [place] [address] 07/06/2024 8:00 AM CDT Appointment [facility] [address] [address] Case Samuel MD [address] [place], [place] [address], [address] [place], [place] [address] 07/10/2024 11:30 AM CDT Oncology Visit [facility] [address] [address] Case Samuel MD [address] [facility] 484, [address] [place] [address] documented as of this encounter Goals Goal Patient Goal Type Associated Problems Recent Progress Patient-Stated? Author Pain Management General On track( 025 12:40 PM PRODUCT MANUFACTURING PROFESSIONAL) Yes Juhi Benson, RN Note: Goal Statement: [...] AND PLATELET MORPHOLOGY STAT 05/31/2024 10:21 PM PRODUCT MANUFACTURING PROFESSIONAL CBC WITH PLATELETS AND DIFFERENTIAL STAT 05/31/2024 10:21 PM PRODUCT MANUFACTURING PROFESSIONAL CBC WITH PLATELETS & DIFFERENTIAL STAT 05/31/2024 10:21 PM PRODUCT MANUFACTURING PROFESSIONAL RETICULOCYTE COUNT STAT 05/31/2024 10 :21 PM PRODUCT MANUFACTURING PROFESSIONAL BASIC METABOLIC PANEL STAT 05/31/2024 10:21 PM PRODUCT MANUFACTURING PROFESSIONAL documented in this encounter Results * (ABNORMAL) RBC and Platelet Morphology (05/31/2024 10:21 PM PRODUCT MANUFACTURING PROFESSIONAL) Pathologist [facility] RBC Morphology Confirmed RBC Indices 05/31/2024 10:59 PM PRODUCT MANUFACTURING PROFESSIONAL [facility] Platelet Assessment Automated Count Confirmed. Platelet morphology is normal. Automated Count Confirmed. Platelet morphology is normal. JARET 05/31/2024 10:59 PM PRODUCT MANUFACTURING PROFESSIONAL [facility] Richmond Cells Slight(A) None Seen JARET 05/31/2024 10:59 PM PRODUCT MANUFACTURING PROFESSIONAL [facility] Elliptocytes Slight(A) None Seen JARET 05/31/2024 10:59 PM [facility] [place] Bodies Present(A) None Seen JARET 05/31/2024 10:59 PM [facility] Polychromasia Slight(A) None Seen JARET 05/31/2024 10:59 PM [facility] Sickle Cells Moderate(A) None Seen JARET 05/31/2024 10:59 PM [facility] Target Cells Slight(A) None Seen JARET 05/31/2024 10:59 PM [facility] Blood BLOOD SPECIMEN / Unknown Venipuncture / Unknown 05/31/2024 10:21 PM PRODUCT MANUFACTURING PROFESSIONAL 05/31/2024 10:24 PM PRODUCT MANUFACTURING PROFESSIONAL us Carley Riggins MD LAB - BLOOD ORDERABLES [facility] Result [facility] [address] * (ABNORMAL) CBC with platelets and differential (05/31/2024 10:21 PM PRODUCT MANUFACTURING PROFESSIONAL) WBC Count 15.4(H) 4.0 - 11.0 10e3/uL 05/31/2024 10:55 PM [facility] RBC Count 2.73(L) 3.80 - 5.20 10e6/uL 05/31/2024 10:55 PM [facility] Hemoglobin 8.9(L) 11.7 - 15.7 g/dL 05/31/2024 10:55 PM [facility] Hematocrit 24.8(L) 35.0 - 47.0 % 05/31/2024 10:55 PM [facility] MCV 91 78 - 100 fL 05/31/2024 10:55 PM [facility] MCH 32.6 26.5 - 33.0 pg 05/31/2024 10:55 PM [facility] MCHC 35.9 31.5 - 36.5 g/dL 05/31/2024 10:55 PM [facility] RDW 21.2(H) 10.0 - 15.0 % 05/31/2024 10:55 PM [facility] Platelet Count 399 150 - 450 10e3/uL 05/31/2024 10:55 PM [facility] % Neutrophils 56 % 05/31/2024 10:55 PM [facility] % Lymphocytes 27 % 05/31/2024 10:55 PM [facility] % Monocytes 14 % 05/31/2024 10:55 PM [facility] % Eosinophils 1 % 05/31/2024 10:55 PM [facility] % Basophils 1 % 05/31/2024 10:55 PM [facility] % Immature Granulocytes 1 % 05/31/2024 10:55 PM [facility] NRBCs per 100 WBC 2(H) <1 /100 025 10:55 PM [facility] Absolute Neutrophils 8.7(H) 1.6 - 8.3 10e3/uL 05/31/2024 10:55 PM [facility] Absolute Lymphocytes 4.2 0.8 - 5.3 10e3/uL 05/31/2024 10:55 PM [facility] Absolute Monocytes 2.2(H) 0.0 - 1.3 10e3/uL 05/31/2024 10:55 PM [facility] Absolute Eosinophils 0.2 0.0 - 0.7 10e3/uL 05/31/2024 10:55 PM [facility] Absolute Basophils 0.1 0.0 - 0.2 10e3/uL 05/31/2024 10:55 PM [facility] Absolute Immature Granulocytes 0.1 <=0.4 10e3/uL 05/31/2024 10:55 PM [facility] Absolute NRBCs 0.3 10e3/uL 05/31/2024 10:55 PM [facility] Blood BLOOD SPECIMEN / Unknown Venipuncture / Unknown 05/31/2024 10:21 PM [facility] 05/31/2024 10:24 PM [facility] us Carley Riggins MD LAB - BLOOD ORDERABLES [facility] Result [facility] [address] [place] [address], [facility] * (ABNORMAL) Basic metabolic panel (05/31/2024 10:21 PM [facility]) Pathologist [facility] Sodium 133(L) 135 - 145 mmol/L 05/31/2024 10:46 PM [facility] Potassium 4.1 3.4 - 5.3 mmol/L 05/31/2024 10:46 PM [facility] Chloride 102 98 - 107 mmol/L 05/31/2024 10:46 PM [facility] Carbon Dioxide (CO2) 20(L) 22 - 29 mmol/L 05/31/2024 10:46 PM [facility] Anion Gap 11 7 - 15 mmol/L 05/31/2024 10:46 PM [facility] Urea Nitrogen 9.9 6.0 - 20.0 mg/dL 05/31/2024 10:46 PM [facility] Creatinine 0.70 0.51 - 0.95 mg/dL 05/31/2024 10:46 PM [facility] GFR Estimate >90 >60 mL/min/1.7 3m2 05/31/2024 10:46 PM [facility] Comment:eGFR calculated wi 2020 CKD-EPI equation. Calcium 9.0 8.8 - 10.4 mg/dL 05/31/2024 10:46 PM [facility] Glucose 97 70 - 99 mg/dL 05/31/2024 10:46 PM [facility] Blood BLOOD SPECIMEN / Unknown Venipuncture / Unknown 05/31/2024 10:21 PM PRODUCT MANUFACTURING PROFESSIONAL 05/31/2024 10:24 PM [facility] us Carley Riggins MD LAB - BLOOD ORDERABLES [facility] Result [facility] [address] [place] [place] [address], [place] * (ABNORMAL) Reticulocyte count (05/31/2024 10:21 PM [facility]) % Reticulocyte 22.7(H) 0.5 - 2.0 % 05/31/2024 10:45 PM [facility] Absolute Reticulocyte 0.631(H) 0.025 - 0.095 10e6/uL 05/31/2024 10:45 PM PRODUCT MANUFACTURING PROFESSIONAL [facility] Blood BLOOD SPECIMEN / Unknown Venipuncture / Unknown 05/31/2024 10:21 PM PRODUCT MANUFACTURING PROFESSIONAL 05/31/2024 10:24 PM PRODUCT MANUFACTURING PROFESSIONAL us Carley Riggins MD LAB - BLOOD ORDERABLES Liss l Result [facility] [address] [place] [address], [facility] documented in this encounter [...] For 1 dose $Given 05/31/2024 10:50 PM PRODUCT MANUFACTURING PROFESSIONAL 25 mg heparin lock flush 100 unit/mL injection 100 Units 100 Units, Intracatheter, ONCE, On Citlali 06/01/24 at 0030, For 1 dose $Given 06/01/2024 12:39 AM PRODUCT MANUFACTURING PROFESSIONAL 100 Units HYDROmorphone (DILAUDID) injection 2 mg 2 mg, Intravenous, EVERY 1 HOUR PRN, severe pain, Starting on Wed05/31/24 at 2143, For 3 doses $Given 06/01/2024 12:36 AM PRODUCT MANUFACTURING PROFESSIONAL 2 mg $Given 05/31/2024 11:42 PM PRODUCT MANUFACTURING PROFESSIONAL 2 mg $Given 05/31/2024 10:28 PM PRODUCT MANUFACTURING PROFESSIONAL 2 mg lactated ringers infusion at 500 mL/hr, Intravenous, CONTINUOUS, Starting on Wed05/31/24 at 2200, Until Wed05/31/24 at 2359 $New Bag 05/31/2024 10:22 PM PRODUCT MANUFACTURING PROFESSIONAL 500 mL/hr ondansetron (ZOFRAN) injection 8 mg 8 mg, Intravenous, ONCE, Administer over 2-5 Minutes, On Wed05/31/24 at 2200, For 1 dose $Given 05/31/2024 10:27 PM PRODUCT MANUFACTURING PROFESSIONAL 8 mg documented in this encounter Active and Recently Administered Medications Times are shown in PRODUCT MANUFACTURING PROFESSIONAL. Scheduled Medication Order 05/30/2024 05/31/2024 06/01/2024 diphenhydrAMINE [...] RN) documented in this encounter Care Teams Locomotive Supervisor Relationship Specialty Start Date End Date No Ref-Primary, Physician PCP - General 03/15/24 06/17/24 Mor Ramsey Medical Student 04/03/24 Case Samuel MD [address] [place] [address], [address] [place] [address] Assigned Pediatric Specialist Provider 05/18/24 Marcelino, Juhi, RN Specialty Director Of Market Intelligence Hematology & Oncology 05/29/24 documented as of this encounter
--- OUTSIDE RECORDS SUMMARY | 2024-07-03 21:32 | XMS_ITS | Encounter Summary ---
Author Organization [facility] Address [address] [place] [address]. [place] [address] Care Team Providers Care De Icer Finisher Name Role Phone No Ref-Primary, Physician Primary Care Provider [place] Ramsey Unavailable Unavailable Case Samuel MD Unavailable [phone] Juhi Benson RN Unavailable Unavailable Reason for Visit * Reason Onset Date Comments Refill Request 06/05/2024 Encounter Details Date Type Department Care Team (Late st Contact Info) Description 06/05/[address] [facility] [address] [place] [address] Case Samuel MD [address] [place] [address], [address] [place] [address] Refill Request Social History Tobacco [...] on file Legal Sex Female 8:25 AM RADIOTELEGRAPHIST Gender Identity Not on file Sexual Orientation [...] fill date and by whom: Dr. Samuel POST FORM REMOVER Reviewed: Yes Send to provider: Routed to dr. Samuel and ESTEVAN Reynaga OTELEGRAPHIST documented in this encounter Plan of Treatment Upcoming Encounters Date Type Department Care Team (Late st Contact Info) Description 07/04/2024 9:[address] [facility] [address] [phone] Case Samuel MD [address] [place] [address], [address] [place], [place] [address] 07/06/2024 8:00 AM CDT Appointment [facility] Advanced Treatment [address] [phone] Case Samuel MD [address] [place] [address], [address] [place] [address] 07/10/2024 11:30 AM CDT Oncology Visit [facility] [address] [phone] Case Samuel MD [address] [place], [place] [address], [address] [place], [place] [address] documented as of this encounter Goals Goal Patient Goal Type Associated Problems Recent Progress Patient-Stated? Author Pain Management General On track( 025 12:40 PM RADIOTELEGRAPHIST) Yes Juhi Benson, SOFIA Note: Goal Statement: [...] crisis documented in this encounter Care Teams De Icer Finisher Relationship Specialty Start Date End Date No Ref-Primary, Physician PCP - General 03/15/24 06/17/24 Mor Ramsey Medical Student 04/03/24 Case Samuel MD [address] [place] [address], [address] [place] [address] Assigned Pediatric Specialist Provider 05/18/24 Juhi Benson, RN Specialty China Decorator Hematology & Oncology 05/29/24 documented as of this encounter
--- OUTSIDE RECORDS SUMMARY | 2024-07-03 21:32 | XMS_ITS | Encounter Summary ---
Author Organization [place] Address [facility] [place] [address] Care Team Providers Care Chef'S Assistant Name Role Phone No Ref-Primary, Physician [...] Samuel MD [address] [place] [address] Phone: tel: fax: Referral ID Status Reason Start Date Expiration Date V isits Requested Visits Authorized [id number] Pending Review 05/29/2024 05/29/2025 1 1 Question Answer Services: Assess/Evaluate for appropriate service (non-medication assessment) My Clinical Question Is: History of chronic pain with depression as major component combined with sickle cell disease and difficulty adjusting to [place]. Requesting evaluation for mental health diagnosis and management. Patient Scheduling Instructions: [facility] will call you to coordinate your care as prescribed by your provider. If you don't hear from a shared services representative within 2 business days, please call [...] plan with any benefit or coverage questions. [facility] will call you to coordinate your care as prescribed by your provider. If you don't hear from a shared services representative within 2 business days, please call . RAGE SALES CONSULTANT Reason for Visit * Reason Comments Port Draw Labs drawn via port by RN in lab, vitals taken. Oncology Clinic Visit RTN Sickle cell Encounter Details Date Type Department Care Team (Late st Contact Info) Description 05/29/2024 11:30 AM BEVERAGE SALES CONSULTANT Oncology Visit [facility] [address] [place] [address] Case Samuel MD [address] [place] [address] 484, [address] [place], [place] [address] Severe episode of recurrent major depressive disorder, [...] on file Legal Sex Female 8:25 AM BEVERAGE SALES CONSULTANT Gender Identity Not on file Sexual Orientation Not on file documented as of this encounter Last Filed Vital Signs Vital Sign Reading Time Taken Comments Blood Pressure 98/67 05/29/2024 11:09 AM BEVERAGE SALES CONSULTANT Pulse 106 05/29/2024 11:09 AM BEVERAGE SALES CONSULTANT Temperature 37.1 C (98.7 F) 05/29/2024 11:09 AM BEVERAGE SALES CONSULTANT Respiratory Rate 18 05/29/2024 11:09 AM BEVERAGE SALES CONSULTANT Oxygen Saturation 96% 05/29/2024 11:09 AM BEVERAGE SALES CONSULTANT Inhaled Oxygen Concentration - - Weight 54.6 kg (120 lb 6.4 oz) 05/29/2024 11:09 AM BEVERAGE SALES CONSULTANT Height - - Body Mass Index 22.75 05/29/2024 12:01 AM BEVERAGE SALES CONSULTANT documented in this encounter Progress Notes * [...] has been hard to transition to [place], especially in winter with a toddler. She [...] She said that she was born in [place] but moved throughout her childhood because her dad was in the . She is the youngest of 9 children she said, though she is the only one with sickle cell disease. Among other places, she was living in [place] for a time and then moved to [place]. It was there that shemet her boyfriend. She ultimately moved back to [place] and he came with her. It was there that they had a daughter Chanda, now 2 years old. That was a difficult for her, and she feels like she never wants to be again. She was living in [place], [place] and receiving care at [facility], though she did not get the sense that operating room nurse there was super comfortable with sickle cell [...] wasabout 3 weeks ago. She moved to [place] about 2 months ago. Her boyfriend is [...] worked up for symptomatic gallstones back in [place], but there were some delays in getting [...] them both so she can be a [id number] mom. Sickle Cell Disease Comprehensive Checklist Stroke/silent [...] titrate as needed and notify the primary operating room nurse via Huan Xiong message if changes to the plan below are needed. Also please note that there is a mental health component to her pain, particularly in terms of adjustment to [place] which is likely to make her pain worse.. 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 She is 1 of 9 [...] Integrated (03/28/2024) [facility] Do you often feel [...] Rate 86 BPM Atrial Rate 86 BPM [place] Interval 154 ms QRS Duration 78 ms QT 370 ms QTc 442 ms P [place] 18 degrees R AXIS 55 degrees T [place] 25 degrees Interpretation ECG Sinus rhythm Nonspecific T wave abnormality Abnormal ECG When compared with ECG of 14-May-2024 22:12, Nonspecific T wave abnormality now evident in Inferior leads Confirmed by SEE ED PROVIDER NOTE FOR, ECG INTERPRETATION ([id number]), editor managing newspaper Neeraj Allison ([id number]) on 05/20/2024 7:48:17 AM Basic metabolic panel [...] Absolute NRBCs 0.2 10e3/uL Extra Green Top ([place] Heparin) Tube Collection Time: 05/20/24 9:09 AM Result Value Ref Range Hold Specimen [facility] Basic metabolic panel Collection Time: 05/20/24 9:09 [...] Rate 103 BPM Atrial Rate 103 BPM [place] Interval 124 ms QRS Duration 80 ms QT 316 ms QTc 413 ms P [place] 82 degrees R AXIS 90 degrees T [place] 70 degrees Interpretation ECG Sinus tachycardia Rightward axis Borderline ECG When compared with ECG of 20-May-2024 07:36, Nonspecific T wave abnormality no longer evident in Anterior leads Confirmed by SEE ED PROVIDER NOTE FOR, ECG INTERPRETATION ([id number]), editor managing newspaper Leticia Warner ([id number]) on 05/22/2024 4:13:58 PM Basic metabolic panel [...] None Seen Elliptocytes Slight (A) None Seen Ziegler-Whitelaw Bodies Present (A) None Seen Polychromasia Slight (A) None Seen RBC Fragments Slight (A) None Seen Sickle Cells Moderate (A) None Seen Target Cells Slight (A) None Seen ECG 12-LEAD WITH MUSE (LHE) Collection Time: 05/23/24 6:54 PM Result Value Ref Range Systolic Blood Pressure mmHg Diastolic Blood Pressure mmHg Ventricular Rate 77 BPM Atrial Rate 77 BPM [place] Interval 160 ms QRS Duration 82 ms QT 362 ms QTc 409 ms P [place] 61 degrees R AXIS 92 degrees T [place] 49 degrees Interpretation ECG Sinus rhythm Rightward axis Borderline ECG When compared with ECG of 22-May-2024 15:14, Nonspecific T wave abnormality no longer evident in Inferior leads Confirmed by SEE ED PROVIDER NOTE FOR, ECG INTERPRETATION ([id number]), editor managing newspaper SELMA GARRISON ([id number]) on 05/23/2024 7:30:33 PM CBC (+ platelets, [...] Rate 91 BPM Atrial Rate 91 BPM [place] Interval 142 ms QRS Duration 80 ms QT 352 ms QTc 432 ms P [place] 39 degrees R AXIS 62 degrees T [place] 23 degrees Interpretation ECG Sinus rhythm Nonspecific T wave abnormality Abnormal ECG When compared with ECG of 23-May-2024 18:54, Nonspecific T wave abnormality now evident in Inferior leads Nonspecific T wave abnormality now evident in Anterior leads Confirmed by SEE ED PROVIDER NOTE FOR, ECG INTERPRETATION ([id number]), editor managing newspaper BEN PRAKASH ([id number]) on 05/27/2024 12:22:37 PM Comprehensive metabolic panel [...] female who recently started receiving care at [facility] for sickle cell disease, HbSS (Apr 2024). She has several comorbidities related to sickle cell disease, including Chronic pain, AVN of the left hip, history of pulmonary embolism, history of transfusions with iron overload, history of stroke(details unclear), right eye retinopathy, acute on chronic anemia, gallstones, and a history of acute chest syndrome. She has been a regular visitor to the [facility] emergency department as well, and I [...] discussions with the emergency department colleagues at [facility], I stressed that a sustainable improvement [...] think outside the box. - Mental health outbound supervisor referral placed HbSS Disease with several complications [...] around the hip and femur strong. -Orthopedic outbound supervisor referral placed. Will defer to them [...] the note Case Samuel MD [employer] Division of Hematology, Oncology, and Transplantation [facility] [place] The longitudinal plan of care for the diagnosis(es)/condition(s) as documented were addressed during this visit. Due to the added complexity in care, I will continue to support Gianna in the subsequent management and with ongoing continuity of care. RAGE SALES CONSULTANT documented in this encounter Nursing Notes * [...] checked into next appt. Jenifer Sheffield RN RAGE SALES CONSULTANT * Laura Rg - 05/29/2024 11:30 AM [...] not needed today. Pharmacy name entered into [facility]: [email or web address] [address] [place], [place] - [address] [facility], [place] - [address] Frailty Screening: Is the patient here for a new oncology consult visit in cancer care? 2. No Clinical concerns:Provider came in during rooming. Laura Rg RAGE SALES CONSULTANT documented in this encounter Plan of Treatment Upcoming Encounters Date Type Department Care Team (Late st Contact Info) Description 07/04/2024 9:00 AM CDT Lab [facility] [address] [phone] Case Samuel MD [address] [place] [address], [address] [id number] 07/06/2024 8:[address] [facility] Advanced Treatment [address] [phone] Case Samuel MD [address] [place] [address], [address] [place], [place] [phone] 07/10/2024 11:30 AM CDT Oncology Visit [address] [phone] Case Samuel MD [address] [place], [place] [address], [address] [id number] Scheduled Referrals Name Type Priority Associated Diagnoses Orde r Schedule Adult Mental Health Internet Marketer Referral Referral Urgent: 3-5 Days Severe episode of recurrent major depressive disorder, without psychotic features (H) Expected: 05/29/2024 (Approximate), Expires: 05/29/2025 documented as of this encounter Goals Goal Patient Goal Type Associated Problems Recent Progress Patient-Stated? Author Pain Management General On track( 025 12:40 PM BEVERAGE SALES CONSULTANT) Yes Juhi Benson, SOFIA Note: [...] AND PLATELET MORPHOLOGY Routine 05/29/2024 11:23 AM BEVERAGE SALES CONSULTANT CBC WITH PLATELETS AND DIFFERENTIAL Routine 05/29/2024 11:23 AM BEVERAGE SALES CONSULTANT TYPE AND SCREEN, ADULT Add-On 11:23 AM BEVERAGE SALES CONSULTANT History of transfusion BILL ONLY- CAPILLARY ELECTROPHORESIS Routine 05/29/2024 11:23 AM BEVERAGE SALES CONSULTANT BILL ONLY- SICKLE SOLUBILITY BILL Routine 05/29/2024 11:23 AM BEVERAGE SALES CONSULTANT ROUTINE UA WITH MICROSCOPIC REFLEX TO CULTURE Routine 05/29/2024 11:23 AM BEVERAGE SALES CONSULTANT CBC WITH PLATELETS & DIFFERENTIAL Routine 05/29/2024 11:23 AM BEVERAGE SALES CONSULTANT GENOTYPE RED BLOOD CELL Routine 05/29/19 25 11:23 AM BEVERAGE SALES CONSULTANT History of transfusion RETICULOCYTE COUNT Routine 05/29/2024 11 :23 AM BEVERAGE SALES CONSULTANT HEMOGLOBIN EVAL REFLEX TO ELP OR RBC SOLUBILITY Routine 05/29/2024 11:23 AM BEVERAGE SALES CONSULTANT FERRITIN Routine 05/29/2024 11:23 AM BEVERAGE SALES CONSULTANT COMPREHENSIVE METABOLIC PANEL Routine 05/29/2024 11:23 AM BEVERAGE SALES CONSULTANT ABO/RH TYPE AND SCREEN Routine 11:23 AM BEVERAGE SALES CONSULTANT History of transfusion URINE CULTURE Routine 05/29/2024 11:23 AM BEVERAGE SALES CONSULTANT documented in this encounter Results * HGB Eval Reflex to ELP or RBC Solubility (05/29/2024 11:23 AM BEVERAGE SALES CONSULTANT) Pathologist [facility] Alpha Globin (HBA1 and HBA2) DD Bill Billed 05/31/2024 2:46 PM BEVERAGE SALES CONSULTANT [facility] Comment: Performed By: [facility] [address] [place] [address] Asphalt Spreader: Devon Healy MD, PhD CLIA Number: [id number] Blood VENOUS LINE / Unknown IVAD (Port) / Unknown 05/29/2024 11:23 AM BEVERAGE SALES CONSULTANT 05/29/2024 11:30 AM BEVERAGE SALES CONSULTANT Case Samuel MD LAB CHARGE PERFORMABLES F inal Result Performing Organization Address [facility] Co de Phone Number [facility] [address] [place] [address], [facility] [phone] * Bill Only- Sickle Solubility Bill (05/29/2024 11:23 AM BEVERAGE SALES CONSULTANT) [facility] Sickle Solubility Reflex Bill Billed 05/31/2024 2:46 PM BEVERAGE SALES CONSULTANT [facility] Comment: Performed By: [facility] [address] [place] [address] Asphalt Spreader: Devon Healy MD, PhD CLIA Number: [id number] Blood VENOUS LINE / Unknown IVAD (Port) / Unknown 05/29/2024 11:23 AM BEVERAGE SALES CONSULTANT 05/29/2024 11:30 AM BEVERAGE SALES CONSULTANT us Case Samuel MD LAB CHARGE PERFORMABLES F inal Result Performing Organization Address City/[facility]/ZIP Co de Phone Number [facility] [address] [place] [address], [facility] [phone] * Adult Type and Screen (05/29/2024 11:23 AM BEVERAGE SALES CONSULTANT) Pathologist [facility] ABO/RH(D) A POS 05/28/2024 6:00 PM BEVERAGE SALES CONSULTANT U BLOOD BANK Antibody Screen Negative Negative 05/28/2024 6:00 PM BEVERAGE SALES CONSULTANT U BLOOD BANK SPECIMEN EXPIRATION DATE [id number] 05/28/2024 6:00 PM BEVERAGE SALES CONSULTANT U BLOOD BANK Blood VENOUS LINE / Unknown IVAD (Port) / Unknown 05/29/2024 11:23 AM BEVERAGE SALES CONSULTANT 05/29/2024 11:29 AM BEVERAGE SALES CONSULTANT Case Samuel MD LAB - BLOOD BANK TEST ORD ER Final Result BLOOD BANK [address] [place] [phone] * Urine Culture (05/29/2024 11:23 AM BEVERAGE SALES CONSULTANT) [facility] Culture <10,000 CFU/mL Mixture of Urogenital Vickie 05/30/2024 9:45 AM BEVERAGE SALES CONSULTANT [facility] Urine URINE SPECIMEN OBTAINED BY CLEAN CATCH PROCEDURE / Unknown Non-blood Collection / Unknown 05/29/2024 11:23 AM BEVERAGE SALES CONSULTANT 05/29/2024 11:41 AM BEVERAGE SALES CONSULTANT Case Samuel MD LAB - MICRO GENERAL ORDER SYD Final Result [facility] Inf. Diseases Diag. Lab [address] [facility], [address] [place] [address] * (ABNORMAL) RBC and Platelet Morphology (05/29/2024 11:23 AM BEVERAGE SALES CONSULTANT) [facility] RBC Morphology Confirmed RBC Indices 05/29/2024 12:33 PM BEVERAGE SALES CONSULTANT [facility] Platelet Assessment Automated Count Confirmed. Platelet morphology is normal. Automated Count Confirmed. Platelet morphology is normal. 05/29/2024 12:33 PM BEVERAGE SALES CONSULTANT [facility] Polychromasia Moderate(A) None Seen 05/29/2024 12:33 PM BEVERAGE SALES CONSULTANT [facility] Sickle Cells Moderate(A) None Seen 05/29/2024 12:33 PM BEVERAGE SALES CONSULTANT [facility] Target Cells Slight(A) None Seen 05/29/2024 12:33 PM BEVERAGE SALES CONSULTANT [facility] Teardrop Cells Slight(A) None Seen 05/29/2024 12:33 PM [facility] Blood VENOUS LINE / Unknown IVAD (Port) / Unknown 05/29/2024 11:23 AM BEVERAGE SALES CONSULTANT 05/29/2024 11:29 AM BEVERAGE SALES CONSULTANT Case Samuel MD LAB - BLOOD ORDERABLES Fi nal Result [facility] [place] [address] [facility] 1st [place] [address] * (ABNORMAL) CBC with platelets and differential (05/29/2024 11:23 AM BEVERAGE SALES CONSULTANT) WBC Count 15.8(H) 4.0 - 11.0 10e3/uL 05/29/2024 12:37 PM [facility] RBC Count 2.11(L) 3.80 - 5.20 10e6/uL 05/29/2024 12:37 PM [facility] Hemoglobin 6.7(LL) 11.7 - 15.7 g/dL 05/29/2024 12:37 PM [facility] Hematocrit 19.2(L) 35.0 - 47.0 % 05/29/2024 12:37 PM [facility] MCV 91 78 - 100 fL 05/29/2024 12:37 PM [facility] MCH 31.8 26.5 - 33.0 pg 05/29/2024 12:37 PM [facility] MCHC 34.9 31.5 - 36.5 g/dL 05/29/2024 12:37 PM [facility] RDW 23.1(H) 10.0 - 15.0 % 05/29/2024 12:37 PM [facility] Platelet Count 417 150 - 450 10e3/uL 05/29/2024 12:37 PM [facility] % Neutrophils 56 % 05/29/2024 12:37 PM [facility] % Lymphocytes 25 % 05/29/2024 12:37 PM [facility] % Monocytes 15 % 05/29/2024 12:37 PM [facility] % Eosinophils 2 % 05/29/2024 12:37 PM [facility] % Basophils 1 % 05/29/2024 12:37 PM [facility] % Immature Granulocytes 1 % 05/29/2024 12:37 PM [facility] NRBCs per 100 WBC 2(H) <1 /100 025 12:37 PM [facility] Absolute Neutrophils 8.8(H) 1.6 - 8.3 10e3/uL 05/29/2024 12:37 PM [facility] Absolute Lymphocytes 4.0 0.8 - 5.3 10e3/uL 05/29/2024 12:37 PM [facility] Absolute Monocytes 2.4(H) 0.0 - 1.3 10e3/uL 05/29/2024 12:37 PM [facility] Absolute Eosinophils 0.3 0.0 - 0.7 10e3/uL 05/29/2024 12:37 PM [facility] Absolute Basophils 0.2 0.0 - 0.2 10e3/uL 05/29/2024 12:37 PM [facility] Absolute Immature Granulocytes 0.2 <=0.4 10e3/uL 05/29/2024 12:37 PM [facility] Absolute NRBCs 0.2 10e3/uL 05/29/2024 12:37 PM [facility] Blood VENOUS LINE / Unknown IVAD (Port) / Unknown 05/29/2024 11:23 AM BEVERAGE SALES CONSULTANT 05/29/2024 11:29 AM [facility] us Case Samuel MD LAB - BLOOD ORDERABLES Fi nal Result [facility] [address] [facility] 1st [place] [address] * Genotype Red Blood Cell (05/29/2024 11:23 AM [facility]) See Scanned Result GENOTYPE RED BLOOD CELL-Scanned 05/31/2024 10:16 AM [facility] Blood VENOUS LINE / Unknown IVAD (Port) / Unknown 05/29/2024 11:23 AM BEVERAGE SALES CONSULTANT 05/29/2024 11:29 AM BEVERAGE SALES CONSULTANT us Case Samuel MD LAB - BLOOD ORDERABLES Fi nal Result [facility] [address] [phone] * (ABNORMAL) HGB Eval Reflex to ELP or RBC Solubility (05/29/2024 11:23 AM BEVERAGE SALES CONSULTANT) Hemoglobin A 15.0(L) 95.0 - 97.9 % 05/31/2024 2:46 PM BEVERAGE SALES CONSULTANT [facility] Hemoglobin A2 3.0 2.0 - 3.5 % 05/31/2024 2:46 PM BEVERAGE SALES CONSULTANT [facility] Hemoglobin F 10.8(H) 0.0 - 2.1 % 05/31/2024 2:46 PM BEVERAGE SALES CONSULTANT [facility] Hemoglobin S 71.2(H) 0.0 - 0.0 % 05/31/2024 2:46 PM BEVERAGE SALES CONSULTANT [facility] Hemoglobin C 0.0 0.0 - 0.0 % 05/31/2024 2:46 PM BEVERAGE SALES CONSULTANT [facility] Hemoglobin E 0.0 0.0 - 0.0 % 05/31/2024 2:46 PM BEVERAGE SALES CONSULTANT [facility] Hemoglobin - Other 0.0 0.0 - 0.0 % 05/31/2024 2:46 PM BEVERAGE SALES CONSULTANT [facility] Hemoglobin Evaluation See Note 05/31/2024 2:46 PM BEVERAGE SALES CONSULTANT [facility] Comment: Impression: Hb S present [...] by Alpha Globin (HBA1 and HBA2) Deletion/Duplication ([facility] test #[id number]) should be considered. Hb S/beta-plus thalassemia is typically characterized by more Hb S than Hb A with the presence of microcytosis. If microcytosis is present and Hb S/beta-plus thalassemia is suspected, Beta Globin (HBB) Sequencing ([facility] test #[id number]) is suggested. Hemoglobin analysis should be offered [...] developed and its performance characteristics determined by [facility]. It has not been cleared or approved by the U.S. Food and Drug Administration. This test was performed in a CLIA-certified laboratory and is intended for clinical purposes. Sickle Cell Solubility Reflex Positive(A) 05/31/2024 2:46 PM BEVERAGE SALES CONSULTANT [employer] Comment: INTERPRETIVE INFORMATION: Sickle Cell Solubility Reflex Not Performed: Solubility testing for Hemoglobin S not indicated. 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 Additional charges apply. Conf Previous: Positive for Hemoglobin S by HPLC. Solubility testing performed previously and not repeated with this submission. Hgb Capillary Electrophoresis Reflex Performed 05/31/2024 2:46 PM BEVERAGE SALES CONSULTANT [employer] Comment: INTERPRETIVE INFORMATION: Hgb Capillary Electrophoresis Reflex Not Performed: Confirmation by Capillary Electrophoresis not indicated. Performed: Results confirmed by Capillary Electrophoresis. Additional charges apply. Conf Previous: Capillary Electrophoresis confirmation performed as part of a previous submission. Confirmation not repeated with this submission. Performed By: [facility] [address] [place] [address] Asphalt Spreader: Devon Haely MD, PhD CLIA Number: [id number] Blood VENOUS LINE / Unknown IVAD (Port) / Unknown 05/29/2024 11:23 AM BEVERAGE SALES CONSULTANT 05/29/2024 11:30 AM BEVERAGE SALES CONSULTANT us Case Samuel MD LAB - BLOOD ORDERABLES Fi nal Result [facility] [address] [place] [phone], [facility] [phone] * (ABNORMAL) Ferritin (05/29/2024 11:23 AM BEVERAGE SALES CONSULTANT) Ferritin 1,559(H) 6 - 175 ng/mL 05/29/2024 12:43 PM BEVERAGE SALES CONSULTANT [facility] Blood VENOUS LINE / Unknown IVAD (Port) / Unknown 05/29/2024 11:23 AM BEVERAGE SALES CONSULTANT 05/29/2024 11:29 AM BEVERAGE SALES CONSULTANT us Case Samuel MD LAB - BLOOD ORDERABLES Fi nal Result Performing Organization Address City/[facility]/ZIP Co de Phone Number [facility] Clinics and Surgery [address] 1st [place] [address] * (ABNORMAL) Routine UA with micro reflex to culture (05/29/2024 11:23 AM BEVERAGE SALES CONSULTANT) Color Urine Yellow Colorless, Straw, Light Yellow, Yellow 05/29/2024 11:41 AM [facility] Appearance Urine Slightly Cloudy(A) Clear 05/29/2024 11:41 AM [facility] Glucose Urine Negative Negative mg/dL 05/29/2024 11:41 AM [facility] Bilirubin Urine Negative Negative 11:41 AM [facility] Ketones Urine Negative Negative mg/dL 05/29/2024 11:41 AM [facility] Specific [place] Urine 1.013 1.003 - 1.035 05/29/2024 11:41 AM [facility] Blood Urine Negative Negative 05/29/2024 11:41 AM [facility] pH Urine 7.0 5.0 - 7.0 05/29/2024 11:41 AM [facility] Protein Albumin Urine Negative Negative mg/dL 05/29/2024 11:41 AM [facility] Urobilinogen Urine Normal Normal, 2.0 mg/dL 05/29/2024 11:41 AM BEVERAGE SALES CONSULTANT [facility] [facility] Nitrite Urine Negative Negative 05/29/2024 11:41 AM BEVERAGE SALES CONSULTANT [facility] Leukocyte Esterase Urine Moderate(A) Negative 05/29/2024 11:41 AM BEVERAGE SALES CONSULTANT [facility] Mucus Urine Present(A) None Seen /LPF 05/29/2024 11:41 AM [employer] SALES CONSULTANT [facility] RBC Urine 6(H) <=2 /HPF 05/29/2024 11:41 AM [employer] SALES CONSULTANT [facility] WBC Urine 3 <=5 /HPF 05/29/2024 11:41 AM BEVERAGE SALES CONSULTANT [facility] Squamous Epithelials Urine 18(H) <=1 /HPF 05/29/2024 11:41 AM [facility] Urine URINE SPECIMEN OBTAINED BY CLEAN CATCH PROCEDURE / Unknown Non-blood Collection / Unknown 05/29/2024 11:23 AM [employer] SALES CONSULTANT 05/29/2024 11:29 AM BEVERAGE SALES CONSULTANT Narrative [facility] - 05/29/2024 11:41 AM [employer] SALES CONSULTANT Urine Culture ordered based on laboratory criteria Case Samuel MD LAB - URINE ORDERABLES Fi nal Result [facility] [address] 1st [place] [address] * (ABNORMAL) Comprehensive metabolic panel (05/29/2024 11:23 AM [employer] SALES CONSULTANT) Sodium 139 135 - 145 mmol/L 05/29/2024 11:58 AM [facility] Potassium 4.2 3.4 - 5.3 mmol/L 05/29/2024 11:58 AM [facility] Carbon Dioxide (CO2) 24 22 - 29 mmol/L 05/29/2024 11:58 AM [facility] Anion Gap 10 7 - 15 mmol/L 05/29/2024 11:58 AM [facility] Urea Nitrogen 9.2 6.0 - 20.0 mg/dL 05/29/2024 11:58 AM [facility] Creatinine 0.75 0.51 - 0.95 mg/dL 05/29/2024 11:58 AM [facility] GFR Estimate >90 >60 mL/min/1.7 3m2 05/29/2024 11:58 AM [facility] Comment:eGFR calculated usin 2020 CKD-EPI equation. Calcium 8.9 8.8 - 10.4 mg/dL 05/29/2024 11:58 AM [facility] Chloride 105 98 - 107 mmol/L 05/29/2024 11:58 AM [facility] Glucose 109(H) 70 - 99 mg/dL 05/29/2024 11:58 AM [facility] Alkaline Phosphatase 83 40 - 150 U/L 05/29/2024 11:58 AM [facility] AST 49(H) 0 - 45 U/L 05/29/2024 11:58 AM [facility] ALT 21 0 - 50 U/L 05/29/2024 11:58 AM [facility] Protein Total 7.3 6.4 - 8.3 g/dL 05/29/2024 11:58 AM [facility] Albumin 4.1 3.5 - 5.2 g/dL 05/29/2024 11:58 AM [facility] Bilirubin Total 2.2(H) <=1.2 mg/dL 05/29/2024 11:58 AM [facility] Blood VENOUS LINE / Unknown IVAD (Port) / Unknown 05/29/2024 11:23 AM [employer] SALES CONSULTANT 05/29/2024 11:29 AM [facility] Case Samuel MD LAB - BLOOD ORDERABLES Fi nal Result [facility] [address] [facility] 1st [place] [address] * (ABNORMAL) Reticulocyte count (05/29/2024 11:23 AM [facility]) Pathologist [facility] % Reticulocyte 29.8(H) 0.5 - 2.0 % 05/29/2024 12:00 PM [facility] Absolute Reticulocyte 0.631(H) 0.025 - 0.095 10e6/uL 05/29/2024 12:00 PM B[employer]AGE SALES CONSULTANT [facility] Blood VENOUS LINE / Unknown IVAD (Port) / Unknown 05/29/2024 11:23 AM B[employer]AGE SALES CONSULTANT 05/29/2024 11:29 AM B[employer]AGE SALES CONSULTANT us Case Samuel MD LAB - BLOOD ORDERABLES Fi nal Result [facility] [place] [address] [facility] 1st [place] [address] documented in this encounter Visit Diagnoses Diagnosis [...] Wed05/29/24 at 1130 $Given 05/29/2024 11:29 AM [employer] SAL[employer] CONSULTANT 5 mLs sodium chloride (PF) 0.9% PF flush 20 mL 20 mL, Intravenous, ONCE, On Wed05/29/24 at 1130, For 1 dose $Given 05/29/2024 11:30 AM [employer] SALES CONSULTANT 20 mLs documented in this encounter Care Teams Chef'S Assistant Relationship Specialty Start Date End Date No Ref-Primary, Physician PCP - General 03/15/24 06/17/24 Mor Ramsey Medical Student 04/03/24 Case Samuel MD [address] [facility] [place] [address] Assigned Pediatric Specialist Provider 05/18/24 Juhi Benson, RN Specialty Thread Spooler Hematology & Oncology 05/29/24 documented as of this encounter
--- OUTSIDE RECORDS SUMMARY | 2024-07-03 21:32 | XMS_ITS | Encounter Summary ---
Author Organization [facility] Address [address] [place] [address]. [place] [address] Care Team Providers Care Toe Puller Name Role Phone No Ref-Primary, Physician Primary Care Provider Mor Ramsey Unavailable Unavailable Case Samuel MD Unavailable Juhi Benson RN Unavailable Unavailable Reason for Visit * Reason Comments Sickle Cell Pain Crisis Encounter Details Date Type Department Care Team (Late st Contact Info) Description 06/01/2024 11:41 PM RN ANGIOGRAPHY - 06/02/2024 2:35 AM [facility] Emergency [facility] Emergency Room [address] [place] [address] Noel Pinzon MD [address] [place] [address] Sickle cell pain crisis (H) Discharge Disposition: [...] file Legal Sex Female 8:25 AM RN ANGIOGRAPHY Gender Identity Not on file Sexual Orientation Not on file documented as of this encounter Last Filed Vital Signs Vital Sign Reading Time Taken Comments Blood Pressure 117/69 06/02/2024 2:15 AM RN ANGIOGRAPHY Pulse 73 06/02/2024 2:15 AM RN ANGIOGRAPHY Temperature 36.7 C (98.1 F) 06/01/2024 10:44 PM RN ANGIOGRAPHY Respiratory Rate 15 06/02/2024 2:00 AM RN ANGIOGRAPHY Oxygen Saturation 95% 06/02/2024 2:15 AM RN ANGIOGRAPHY Inhaled Oxygen Concentration - - Weight 54.4 kg (120 lb) 06/01/2024 10:44 PM RN ANGIOGRAPHY Height - - Body Mass Index 22.67 05/31/2024 9:39 PM RN ANGIOGRAPHY documented in this encounter Discharge Instructions * Discharge Instructions* Noel Pinzon MD - 06/02/2024 1:57 AM RN ANGIOGRAPHY Continue outpatient follow up and cares 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 ANGIOGRAPHY ANGIOGRAPHY documented in this encounter Medications at Time [...] questions were answered. Vitally stable upon discharge. ANGIOGRAPHY ANGIOGRAPHY * Noel Pinzon MD - 06/01/2024 11:07 PM CST Emergency Department Encounter Evaluation Date & Time: No admission date for patient encounter. CHIEF COMPLAINT: Sickle Cell Pain Crisis Triage Note:PT is coming in tonight for a sickle cell crisis. Pt has been waiting for her pharmacy to fill her RX. They stated that pharmacy might have the RX tomorrow. No OTC medication INSIDE [employer]. ED COURSE & MEDICAL DECISION MAKING: Pt [...] history is provided by the patient. No foreign languages department chair was used. Gianna Hernández is a 29 [...] my direction. Noel Pinzon DO Emergency Medicine [facility] EMERGENCY ROOM 06/01/2024 11:07 PM Noel Pinzon MD 06/02/24 0236 ANGIOGRAPHY * Aminata Farley, RN - 06/01/2024 10:45 PM CST PT is coming in tonight for a sickle cell crisis. Pt has been waiting for her pharmacy to fill her RX. They stated that pharmacy might have the RX tomorrow. No OTC medication INSIDE [employer]ES. Triage Assessment (Adult) Row Name 06/01/24 2244 Triage Assessment Airway WDL WDL Respiratory WDL Respiratory WDL WDL Skin Circulation/Temperature WDL Skin Circulation/Temperature WDL WDL Cardiac WDL Cardiac WDL WDL Peripheral/Neurovascular WDL Peripheral Neurovascular WDL WDL Cognitive/Neuro/Behavioral WDL Cognitive/Neuro/Behavioral WDL WDL ANGIOGRAPHY documented in this encounter Plan of Treatment Upcoming Encounters Date Type Department Care Team (Late st Contact Info) Description 07/04/2024 9:00 AM CDT Lab [facility] [address] [place] [address] Case Samuel MD [address] [place] [address] [address], [address] [place], [place] [id number] 07/06/2024 8:00 AM CDT Appointment [facility] [place] [address] [place] [phone] Case Samuel MD [address] [place] [address] [address], [address] [place], [place] [id number] 07/10/2024 11:30 AM CDT Oncology Visit [facility] [address] [place] [address] Case Samuel MD [address] [facility] [address], [address] [place] [address] documented as of this encounter Goals Goal Patient Goal Type Associated Problems Recent Progress Patient-Stated? Author Pain Management General On track( 025 12:40 PM RN ANGIOGRAPHY) Yes Juhi Benson, SOFIA Note: Goal Statement: [...] For 1 dose $Given 06/02/2024 1:17 AM RN ANGIOGRAPHY 50 mg heparin lock flush 10 unit/mL [...] each port lumen $Given 06/02/2024 2:29 AM RN ANGIOGRAPHY 5 mLs HYDROmorphone (DILAUDID) injection 2 mg 2 mg, Intravenous, ONCE, On Citlali 06/01/24 at 2330, For 1 dose $Given 06/02/2024 12:07 AM RN ANGIOGRAPHY 2 mg HYDROmorphone (DILAUDID) injection 2 mg 2 mg, Intravenous, EVERY 1 HOUR PRN, severe pain, Starting on Citlali 06/01/24 at 2308, For 2 doses $Given 06/02/2024 2:17 AM RN ANGIOGRAPHY 2 mg $Given 06/02/2024 1:16 AM RN ANGIOGRAPHY 2 mg lactated ringers BOLUS 1,000 mL Intravenous, 1,000 mL, ONCE, On Citlali 06/01/24 at 2330, For 1 dose $New Bag 06/02/2024 12:06 AM RN ANGIOGRAPHY 1,000 mLs ondansetron (ZOFRAN) injection 8 mg 8 mg, Intravenous, ONCE, Administer over 2-5 Minutes, On Citlali 06/01/24 at 2330, For 1 dose $Given 06/02/2024 12:06 AM RN ANGIOGRAPHY 8 mg sodium chloride (PF) 0.9% PF [...] each port lumen. $Given 06/02/2024 12:12 AM RN ANGIOGRAPHY 20 mLs documented in this encounter Active and Recently Administered Medications Times are shown in RN ANGIOGRAPHY. Scheduled Medication Order 05/31/2024 06/01/2024 06/02/2024 diphenhydrAMINE [...] doses 0116 ($Given - Provi nas: Obie Schofeild RN)0217 ($Given - Provider: Obie Schofield RN) [...] lumen documented in this encounter Care Teams Toe Puller Relationship Specialty Start Date End Date No Ref-Primary, Physician PCP - General 03/15/24 06/17/24 Mor Ramsey Medical Student 04/03/24 Case Samuel MD [address] [place] [address] [address], [address] [place] [address] Assigned Pediatric Specialist Provider 05/18/24 Juhi Benson RN Specialty Nuclear Plant Equipment Operator Hematology & Oncology 05/29/24 documented as of this encounter
--- OUTSIDE RECORDS SUMMARY | 2024-07-03 21:32 | XMS_ITS | Encounter Summary ---
Author Organization [facility] Address [address] [place] [address]. [place] [address] Care Team Providers Care Cut Filer Name Role Phone [employer]El[employer] Unavailable Unavailable Case Samuel MD Unavailable [phone] Juhi Benson RN Unavailable Unavailable Veronica Joseph MD Primary Care Provider [phone] Reason for Visit * Reason Comments Sickle Cell Pain Crisis * Auth/Cert Specialty Diagnoses / Procedures Referred By Shahid pendleton Referred To Contact EMERGENCY MEDICINE Diagnoses Acute pulmonary embolism without acute cor pulmonale, unspecified pulmonary embolism type (H) Sickle cell pain crisis (H) [facility] Emergency Department [address] [place] [address] Phone: tel: Referral ID Status Reason Start Date Expiration Date Visits Re quested Visits Authorized [id number] 1 1 Encounter Details Date Type Department Care Team (Latest Contact Info) Description 06/26/2024 1:51 PM SORT OPERATIONS SUPERVISOR - 06/29/2024 11:11 AM [facility] Hospital Encounter [facility] Emergency Department [address] [place] [phone] Jayden Adhikari MD [address] [place] [address] Esdras Markham MD [address] [place] [address] Alex Gillespie MD [address] [place] [address] Acute pulmonary embolism without acute cor [...] on file Legal Sex Female 8:25 AM SORT OPERATIONS SUPERVISOR Gender Identity Not on file Sexual Orientation Not on file documented as of this encounter Last Filed Vital Signs Vital Sign Reading Time Taken Comments Blood Pressure 97/51 06/29/2024 9:46 AM SORT OPERATIONS SUPERVISOR Pulse 62 06/29/2024 9:46 AM SORT OPERATIONS SUPERVISOR Temperature 36.8 C (98.2 F) 06/29/2024 9:46 AM SORT OPERATIONS SUPERVISOR Respiratory Rate 18 06/29/2024 9:46 AM SORT OPERATIONS SUPERVISOR Oxygen Saturation 95% 06/29/2024 9:46 AM SORT OPERATIONS SUPERVISOR Inhaled Oxygen Concentration - - Weight - - Height - - Body Mass Index - - documented in this encounter Discharge Summaries * Rl Elias MD - 06/29/2024 10:11 AM CST [facility] Discharge Summary - Medicine & Pediatrics Date [...] negative. Hemoglobin stable through admission. - Continue CONTENT MANAGEMENT CONSULTANT hydroxyurea 1000mg BID - Continue CONTENT MANAGEMENT CONSULTANT folic acid 1mg daily - Continue topical [...] Hematology (whichever comes first) #Anxiety - Continue CONTENT MANAGEMENT CONSULTANT fluoxetine 10 mg daily Consultations This Hospital Stay PHARMACY IP CONSULT HEMATOLOGY ADULT IP CONSULT CARE MANAGEMENT / SOCIAL WORK IP CONSULT PHARMACY LIAISON FOR MEDICATION COVERAGE CONSULT PHARMACY LIAISON FOR MEDICATION COVERAGE CONSULT SOCIAL WORK IP CONSULT PHARMACY LIAISON FOR MEDICATION COVERAGE CONSULT Code Status Full Code The patient was discussed with Dr. Gillespie. MD Ricardo LANGLEY [address] [place] [address] EMERGENCY DEPARTMENT [address] [facility] [id number] Physical Exam Vital Signs: Temp: 98.2 ??F [...] MD Echocardiogram Complete Value LVEF 55-60% Narrative [id number]^BRITTANEY^JERMAINE [facility] Echocardiography Laboratory [address] [place] [address] Name: LEW HERNÁNDEZ : 1995 Study Date: 06/27/2024 01:58 PM Age: 29 yrs Gender: Female Patient Location: [facility] Reason For Study: Pulmonary Emboli Ordering Physician: [...] (H) naloxone (NARCAN) 4 MG/0.1ML nasal spray [place] 1 spray (4 mg) into one nostril [...] Alex Gillespie MD at 06/29/2024 12:30 PM SORT OPERATIONS SUPERVISOR OPERATIONS SUPERVISOR OPERATIONS SUPERVISOR Associated attestation - Alex Gillespie MD - 06/29/2024 12:30 PM SORT OPERATIONS SUPERVISOR Physician Attestation I saw and evaluated this [...] 05/01/2024 naloxone (NARCAN) 4 MG/0.1ML nasal spray [place] 1 spray (4 mg) into one nostril [...] with POC. Notify primary team with changes. OPERATIONS SUPERVISOR * Rl Elias MD - 06/28/2024 10:47 AM CST [facility] Progress Note - Medicine Service, [facility] TEAM 1 Date of Admission: 06/26/2024 [...] coverage, has 30 day free trial through [facility] #Sickle cell acute pain crisis #Sickle [...] senna PRN for supportive measures - Continue CONTENT MANAGEMENT CONSULTANT hydroxyurea 1000mg BID - Continue CONTENT MANAGEMENT CONSULTANT folic acid 1mg daily - Monitoring CBC [...] melatonin 3 mg PRN #Anxiety - Continue CONTENT MANAGEMENT CONSULTANT fluoxetine 10 mg daily - Benadryl PRN [...] Gillespie . RL ELIAS MD Medicine Service, [facility] TEAM 1 [facility] Securely message with [employer] (more info) Text page via [facility] [...] Echocardiogram Complete Result Value LVEF 55-60% Narrative [id number]^BRITTANEY^JERMAINE [facility] Echocardiography Laboratory [address] [place] [address] Name: LEW HERNÁNDEZ : 1995 Study Date: 06/27/2024 01:58 PM Age: 29 yrs Gender: Female Patient Location: [facility] Reason For Study: Pulmonary Emboli Ordering Physician: [...] Alex Gillespie MD at 06/28/2024 12:23 PM SORT OPERATIONS SUPERVISOR OPERATIONS SUPERVISOR OPERATIONS SUPERVISOR Associated attestation - Alex Gillespie MD - 06/28/2024 12:23 PM SORT OPERATIONS SUPERVISOR Physician Attestation I saw this patient with [...] status and report changes to treatment team. OPERATIONS SUPERVISOR * Rl Elias MD - 06/27/2024 11:41 AM CST [facility] Progress Note - Medicine Service, [facility] TEAM 1 Date of Admission: 06/26/2024 [...] senna PRN for supportive measures - Continue CONTENT MANAGEMENT CONSULTANT hydroxyurea 1000mg BID - Continue CONTENT MANAGEMENT CONSULTANT folic acid 1mg daily - Monitoring CBC w/diff, LDH, reticulocyte count, and LDH daily - Type & screened - Continue topical diclofenac, lidocaine, icy hot PRN #Leukocytosis #Insomnia - continue melatonin 3 mg PRN #Anxiety - Continue CONTENT MANAGEMENT CONSULTANT fluoxetine 10 mg daily - Benadryl PRN [...] Gillespie . RL ELIAS MD Medicine Service, [facility] TEAM [address] [place] [address] Securely message with [employer] (more info) Text page via [facility] [...] Alex Gillespie MD at 06/27/2024 2:25 PM SORT OPERATIONS SUPERVISOR OPERATIONS SUPERVISOR OPERATIONS SUPERVISOR Associated attestation - Alex Gillespie MD - 06/27/2024 2:25 PM SORT OPERATIONS SUPERVISOR Physician Attestation I saw this patient with [...] Quispe MD - 06/26/2024 5:21 PM CST [facility] History and Physical - Medicine Service, [facility] TEAM Date of Admission: 06/26/2024 Assessment [...] 10 mg qdaily at home. - Continue CONTENT MANAGEMENT CONSULTANT fluoxetine - Ordered hydroxyzine 25-50 mg q6h PRN - Advised patient that there are resources available if she would like to talk more about her anxiety (Behavioral Health, Systems Operator, etc). #Insomnia - Ordered melatonin 3 mg [...] Markham . 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 [...] nasal spray Self, Other No No Sig: [place] 1 spray (4 mg) into one nostril [...] Esdras Markham MD at 06/26/2024 11:25 PM SORT OPERATIONS SUPERVISOR OPERATIONS SUPERVISOR OPERATIONS SUPERVISOR Associated attestation - Esdras Markham MD - 06/26/2024 11:25 PM SORT OPERATIONS SUPERVISOR Physician Attestation I saw this patient with [...] Communication Assessment Patient's communication style: spoken language (Portuguese or Bilingual) Cognitive Cognitive/Neuro/Behavioral: WDL Living Environment: [...] Dependency Status:not discussed Values/Beliefs: Spiritual, Cultural Beliefs, Hinduism Practices, Values that affect care: no Discussed [...] Care management signing off. Sandy Bertrand RN, [facility] Inpatient Care Management - FLOAT OPERATIONS SUPERVISOR * Bernadette Boggs - 06/29/2024 8:55 AM CSTAssociated Order(s): PHARMACY LIAISON FOR MEDICATION COVERAGE CONSULT; PHARMACY LIAISON FOR MEDICATION COVERAGE CONSULT Summary: Rx coverage for Eliquis Discharge Pharmacy Test Claim Patient's commercial BCBS [place] plan covers Eliquis with an expected monthly copay of $0. Test Claim Copay Eliquis 0.00 Bernadette Boggs [facility] Pharmacy Liaison (A - L) Available on [employer] Disclaimer: Pharmacy test claims are extimates and may not reflect final costs. Suggested alternatives aim to be cost-effective but may not be therapeutically equivalent as this consult is informational and does not constitute medical advice. Clinical decisions should be made by qualified healthcare providers. OPERATIONS SUPERVISOR OPERATIONS SUPERVISOR OPERATIONS SUPERVISOR OPERATIONS SUPERVISOR * Bernadette Boggs - 06/27/2024 3:13 PM CSTAssociated Order(s): PHARMACY LIAISON FOR MEDICATION COVERAGE CONSULT Summary: Rx Coverage for Xarelto Discharge Pharmacy Test Claim Patient's commercial [place] plan covers xarelto with an expected monthly copay of $0. Test Claim Copay Xarelto 0.00 Bernadette Boggs [facility] Pharmacy Liaison (A - L) Available on [employer] Disclaimer: Pharmacy test claims are extimates and may not reflect final costs. Suggested alternatives aim to be cost-effective but may not be therapeutically equivalent as this consult is informational and does not constitute medical advice. Clinical decisions should be made by qualified healthcare providers. OPERATIONS SUPERVISOR OPERATIONS SUPERVISOR * Carmen Aviles PA-C - 06/27/2024 9:03 AM CSTAssociated Order(s): HEMATOLOGY ADULT IP CONSULT Images from the original note were not included. Hematology Consult Note Date of Service: 06/27/2024 Patient: Lew Hernández Admission Date: 06/26/2024 Hospital Day # Hospital Day: 2 Primary Outpatient Checker Loader: Dr. Evy Samuel Reason for Consult: pt [...] documentation time. Jenise Aviles PA-C Benign Hematology [phone] History of Present Illness: Lew Hernández is [...] Endocarditis 11/2022 culture-negative, 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 Recently moved to [place] from [place], [place]. She is 1 of 9 [...] Socially Integrated (03/28/2024) [facility] Social Connections Do you often [...] 11 naloxone (NARCAN) 4 MG/0.1ML nasal spray [place] 1 spray (4 mg) into one nostril [...] Octavio Rivera MD at 06/27/2024 4:18 PM SORT OPERATIONS SUPERVISOR OPERATIONS SUPERVISOR OPERATIONS SUPERVISOR Associated attestation - Octavio Rivera MD - 06/27/2024 4:18 PM SORT OPERATIONS SUPERVISOR Physician Attestation I saw and evaluated Lew Hernández as part of a shared PERFECT BINDER SETTER/PA visit. I personally reviewed the vital signs, [...] indwelling. We will coordinate follow-up with outpatient marketing services rep. Counseling and/or coordination of care performed by me: Rounds 45 MINUTES SPENT BY ME on the date of service doing chart review, history, exam, documentation & further activities per the note. Octavio Rivera MD Date of Service (when I saw the patient): 06/27/24 This note was completed in part using dictation via the [employer] voice recognition software. Some word and grammatical [...] WDL WDL Cognitive/Neuro/Behavioral WDL Cognitive/Neuro/Behavioral WDL WDL OPERATIONS SUPERVISOR * Tammi Dave RN - 06/26/2024 1:51 PM CST [facility] Expected date: Expected time: Means of arrival: Comments: HWY appropriate OPERATIONS SUPERVISOR * Jayden Adhikari MD - 06/26/2024 1:45 PM CST Images from the original note were not included. 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 Procedure Abnormality Status --------- ------ CBC with platelets and d...[[id number]] Abnormal Final result Please view results for these tests on the individual orders. ABO/Rh type and screen Status: None Narrative The following orders were created for panel order ABO/Rh type and screen. Procedure Abnormality Status --------- ------ Adult Type and Screen[[id number]] Final result Please view results for these [...] Negative Ketones Urine Negative Negative mg/dL Specific Golden Urine 1.009 1.003 - 1.035 Blood Urine [...] Rate 87 BPM Atrial Rate 87 BPM WV Interval 162 ms QRS Duration 86 ms QT 362 ms QTc 435 ms P [place] 54 degrees R AXIS 84 degrees T [place] 70 degrees Interpretation ECG Sinus rhythm Normal ECG Unconfirmed report - interpretation of this ECG is computer generated - see medical record for final interpretation Confirmed by - EMERGENCY ROOM, PHYSICIAN ([id number]), associate editor Nivia Willson ([id number]) on 06/25/2024 10:56:42 PM CBC with platelets differential Status: Abnormal Narrative The following orders were created for panel order CBC with platelets differential. Procedure Abnormality Status --------- ------ CBC with platelets and d...[[id number]] Abnormal Final result Please view results for [...] 55 mL (55 mLs Intravenous $Given 06/26/24 0283) sodium chloride (PF) 0.9% PF flush 82 mL (82 mLs Intravenous $Given 06/26/24 8253) heparin ANTICOAGULANT Loading dose for HIGH INTENSITY [...] POS Antibody Screen Negative SPECIMEN EXPIRATION DATE [id number] BLOOD CULTURE BLOOD CULTURE ABO/RH TYPE AND [...] type (H) Sickle cell pain crisis (H) [facility] EMERGENCY DEPARTMENT 06/26/2024 Jayden Adhikari MD 06/26/24 1704 OPERATIONS SUPERVISOR documented in this encounter Miscellaneous Notes * Plan of Care - Sandy Bertrand RN - 06/29/2024 10:54 AM CST Goal Outcome Evaluation: Plan of Care Reviewed With: patient Overall Patient Progress: improvingOverall Patient Progress: improving Outcome Evaluation: Discharge home today Sandy Bertrand RN, [facility] Inpatient Care Management - FLOAT OPERATIONS SUPERVISOR * Plan of Care - Maki Schultz [...] Pt adequate for discharge. Verbalized all instructions. OPERATIONS SUPERVISOR * Plan of Care - Lavinia Cruz RN - 06/29/2024 7:05 AM CST RN [id number] Vitals: Afebrile. VSS on RA Neuro: A&Ox4 [...] changes in patient status. Lavinia Cruz RN OPERATIONS SUPERVISOR * Plan of Care - Sathish Goetz [...] (36.8 ??C) (Oral) Resp 20 SpO2 98% OPERATIONS SUPERVISOR * Plan of Care - Sathish Goetz [...] (36.8 ??C) (Oral) Resp 20 SpO2 98% OPERATIONS SUPERVISOR * Medication Scribe - Admission Medication History - Yennifer Edwards - 06/27/2024 4:32 AM CST Medication Scribe Admission Medication History Admission medication history is complete. The information provided in this note is only as accurateas the sources available at the time of the update. Information Source(s): Patient and CareEverywhere/SureScripts via in-person Pertinent Information: per pt+CE, pt reported taking medications on CONTENT MANAGEMENT CONSULTANT medication list as directed Changes made to CONTENT MANAGEMENT CONSULTANT medication list: Added: None Deleted: None Changed: None Allergies reviewed with patient and updates made in EHR: yes Medication History Completed By: Yennifer Edwards 06/27/2024 4:32 AM CONTENT MANAGEMENT CONSULTANT Med List Medication Sig Last Dose/Taking diphenhydrAMINE [...] 06/26/2024 naloxone (NARCAN) 4 MG/0.1ML nasal spray [place] 1 spray (4 mg) into one nostril alternating nostrilsas needed for opioid reversal (for opiate overdose if not breathing and unconscious. have your family member watch video on how to use/read information sheet). every 2-3 minutes until assistance arrives Taking As Needed OPERATIONS SUPERVISOR * Plan of Care - Gordo Sykes [...] Progress: no changeOverall Patient Progress: no change OPERATIONS SUPERVISOR * Provider Notification - Gordo Sykes, RN - 06/27/2024 3:35 AM SORT OPERATIONS SUPERVISOR Jovan, I've messaged your research program internship a couple of times starting at ([phone]) [...] Or what are her diet orders? Thanks. OPERATIONS SUPERVISOR * Provider Notification - Gordo Sykes RN - 06/27/2024 1:27 AM SORT OPERATIONS SUPERVISOR Also, pt has orders for NPO. Pt stated that she thinks that this has passed and the order hasn't been updated. Previous nurse told me that pt ordered and ate dinner (before my shift). Is pt NPO? Or what are her diet orders? Thanks. OPERATIONS SUPERVISOR * Provider Notification - Gordo Sykes RN - 06/27/2024 1:13 AM SORT OPERATIONS SUPERVISOR Hello, pt refusing a PIV. Pt only has L port that is currently running a heparin drip. Pt has orders for continuous LR at 100mL/hour, I am unable to run this at this time due to limited access. Is fedey to hold off on this? Or what would you advise? Thanks. OPERATIONS SUPERVISOR OPERATIONS SUPERVISOR * Plan of Care - Phuong Ng RN - 06/26/2024 11:46 PM CST Shift: [id number] VS: Blood pressure 103/68, pulse 79, temperature [...] No significant changes this shift, continue POC. OPERATIONS SUPERVISOR documented in this encounter Plan of Treatment Upcoming Encounters Date Type Department Care Team (Late st Contact Info) Description 07/04/2024 9:00 AM CDT Lab [facility] Cancer [address] [address] Case Samuel MD [address] [place] [address], ROOM [address] [id number] 07/06/2024 8:00 AM CDT Appointment [facility] Advanced Treatment [address] [address] Case Samuel MD [address] [place] [address], [address] [place] [id number] 07/10/2024 11:30 AM CDT Oncology Visit [facility] [address] [address] Case Samuel MD [address] [place], [place] [address], ROOM [address] [address] documented as of this encounter Goals Goal Patient Goal Type Associated Problems Recent Progress Patient-Stated? Author Pain Management General On track( 025 12:40 PM SORT OPERATIONS SUPERVISOR) Yes Juhi Benson RN Note: Goal [...] Comments EXTRA TUBE STAT 06/29/2024 6:05 AM SORT OPERATIONS SUPERVISOR EXTRA PURPLE TOP TUBE STAT 06/29/2024 6:05 AM SORT OPERATIONS SUPERVISOR CBC WITH PLATELETS AND DIFFERENTIAL STAT 06/29/2024 6:05 AM SORT OPERATIONS SUPERVISOR CBC WITH PLATELETS & DIFFERENTIAL STAT 06/29/2024 6:05 AM SORT OPERATIONS SUPERVISOR COMPREHENSIVE METABOLIC PANEL STAT 06/29/2024 6:04 AM SORT OPERATIONS SUPERVISOR RBC AND PLATELET MORPHOLOGY STAT 06/28/2024 6:06 AM SORT OPERATIONS SUPERVISOR CBC WITH PLATELETS AND DIFFERENTIAL STAT 06/28/2024 6:06 AM SORT OPERATIONS SUPERVISOR LACTATE DEHYDROGENASE STAT 06/28/2024 6:06 AM SORT OPERATIONS SUPERVISOR CBC WITH PLATELETS & DIFFERENTIAL STAT 06/28/2024 6:06 AM SORT OPERATIONS SUPERVISOR RETICULOCYTE COUNT STAT 06/28/2024 6: 06 AM SORT OPERATIONS SUPERVISOR COMPREHENSIVE METABOLIC PANEL STAT 06/28/2024 6:06 AM SORT OPERATIONS SUPERVISOR BILIRUBIN DIRECT Add-On 06/28/2024 6:06 AM SORT OPERATIONS SUPERVISOR HEPARIN UNFRACTIONATED ANTI XA LEVEL STAT 06/28/2024 1:57 AM SORT OPERATIONS SUPERVISOR HEPARIN UNFRACTIONATED ANTI XA LEVEL STAT 06/27/2024 7:14 PM SORT OPERATIONS SUPERVISOR EXTRA TUBE STAT 06/27/2024 5:55 PM SORT OPERATIONS SUPERVISOR EXTRA GREEN TOP (LITHIUM HEPARIN) TUBE STAT 06/27/2024 5:55 PM SORT OPERATIONS SUPERVISOR ECHO COMPLETE Routine 06/27/2024 2:33 PM SORT OPERATIONS SUPERVISOR HEPARIN UNFRACTIONATED ANTI XA LEVEL STAT 06/27/2024 12:39 PM SORT OPERATIONS SUPERVISOR US LOWER EXTREMITY VENOUS DUPLEX BILATERAL STAT 06/27/2024 11:21 AM SORT OPERATIONS SUPERVISOR INFLUENZA A/B, RSV AND SARS-COV2 PCR STAT 06/27/2024 8:43 AM SORT OPERATIONS SUPERVISOR ROUTINE UA WITH MICROSCOPIC REFLEX TO CULTURE STAT 06/27/2024 8:12 AM SORT OPERATIONS SUPERVISOR RBC AND PLATELET MORPHOLOGY STAT 06/27/2024 5:57 AM SORT OPERATIONS SUPERVISOR CBC WITH PLATELETS AND DIFFERENTIAL Add-On 06/27/2024 5:57 AM SORT OPERATIONS SUPERVISOR TYPE AND SCREEN, ADULT Routine 5:57 AM SORT OPERATIONS SUPERVISOR CBC WITH PLATELETS & DIFFERENTIAL Add-On 06/27/2024 5:57 AM SORT OPERATIONS SUPERVISOR RETICULOCYTE COUNT Add-On 06/27/2024 5: 57 AM SORT OPERATIONS SUPERVISOR HEPATIC FUNCTION PANEL Add-On 5:57 AM SORT OPERATIONS SUPERVISOR ABO/RH TYPE AND SCREEN Add-On 5:57 AM SORT OPERATIONS SUPERVISOR BASIC METABOLIC PANEL STAT 06/27/2024 5:57 AM SORT OPERATIONS SUPERVISOR CBC WITH PLATELETS STAT 06/27/2024 5: 57 AM SORT OPERATIONS SUPERVISOR HEPARIN UNFRACTIONATED ANTI XA LEVEL STAT 06/27/2024 5:56 AM SORT OPERATIONS SUPERVISOR HEPARIN UNFRACTIONATED ANTI XA LEVEL STAT 06/26/2024 10:46 PM SORT OPERATIONS SUPERVISOR ERYTHROCYTE SEDIMENTATION RATE AUTO STAT 06/26/2024 6:46 PM SORT OPERATIONS SUPERVISOR BLOOD CULTURE STAT 06/26/2024 6:46 PM SORT OPERATIONS SUPERVISOR BLOOD CULTURE STAT 06/26/2024 6:46 PM SORT OPERATIONS SUPERVISOR EKG 12-LEAD, TRACING ONLY STAT 06/26/2024 5:19 PM SORT OPERATIONS SUPERVISOR CT CHEST PULMONARY EMBOLISM W CONTRAST STAT 06/26/2024 4:15 PM SORT OPERATIONS SUPERVISOR XR CHEST 2 VIEWS STAT 06/26/2024 3:13 PM SORT OPERATIONS SUPERVISOR CBC WITH PLATELETS AND DIFFERENTIAL STAT 06/26/2024 2:42 PM SORT OPERATIONS SUPERVISOR TYPE AND SCREEN, ADULT STAT 2:42 PM SORT OPERATIONS SUPERVISOR TROPONIN T, HIGH SENSITIVITY STAT 06/26/2024 2:42 PM SORT OPERATIONS SUPERVISOR PROCALCITONIN STAT 06/26/2024 2:42 PM SORT OPERATIONS SUPERVISOR CBC WITH PLATELETS & DIFFERENTIAL STAT 06/26/2024 2:42 PM SORT OPERATIONS SUPERVISOR HCG QUALITATIVE STAT 06/26/2024 2:42 PM SORT OPERATIONS SUPERVISOR D DIMER QUANTITATIVE STAT 06/26/2024 2:42 PM SORT OPERATIONS SUPERVISOR CRP INFLAMMATION Add-On 06/26/2024 2:42 PM SORT OPERATIONS SUPERVISOR ABO/RH TYPE AND SCREEN STAT 2:42 PM SORT OPERATIONS SUPERVISOR BASIC METABOLIC PANEL STAT 06/26/2024 2:42 PM SORT OPERATIONS SUPERVISOR documented in this encounter Results * Extra Purple Top Tube (06/29/2024 6:05 AM SORT OPERATIONS SUPERVISOR) Hold Specimen JIC 06/29/2024 7:31 AM SORT OPERATIONS SUPERVISOR [facility] Blood ARTERIAL LINE / Unknown IVAD (Port) / Unknown 06/29/2024 6:05 AM SORT OPERATIONS SUPERVISOR 06/29/2024 6:19 AM SORT OPERATIONS SUPERVISOR us Alex Gillespie MD LAB - BLOOD ORDERABLES Final Re sult [facility] [address] [facility], [address] [place] [address] [[email or web address]] * (ABNORMAL) CBC with platelets and differential (06/29/2024 6:05 AM SORT OPERATIONS SUPERVISOR) WBC Count 12.3(H) 4.0 - 11.0 10e3/uL 06/29/2024 6:30 AM SORT OPERATIONS SUPERVISOR [facility] RBC Count 2.60(L) 3.80 - 5.20 10e6/uL 06/29/2024 6:30 AM SORT OPERATIONS SUPERVISOR [facility] Hemoglobin 8.5(L) 11.7 - 15.7 g/dL 06/29/2024 6:30 AM SORT OPERATIONS SUPERVISOR [facility] Hematocrit 25.5(L) 35.0 - 47.0 % 06/29/2024 6:30 AM SORT OPERATIONS SUPERVISOR [facility] MCV 98 78 - 100 fL 06/29/2024 6:30 AM SORT OPERATIONS SUPERVISOR [facility] MCH 32.7 26.5 - 33.0 pg 06/29/2024 6:30 AM SORT OPERATIONS SUPERVISOR [facility] MCHC 33.3 31.5 - 36.5 g/dL 06/29/2024 6:30 AM SORT OPERATIONS SUPERVISOR [facility] RDW 17.9(H) 10.0 - 15.0 % 06/29/2024 6:30 AM SORT OPERATIONS SUPERVISOR [facility] Platelet Count 438 150 - 450 10e3/uL 06/29/2024 6:30 AM SORT OPERATIONS SUPERVISOR [facility] % Neutrophils 62 % 06/29/2024 6:30 AM SORT OPERATIONS SUPERVISOR [facility] % Lymphocytes 25 % 06/29/2024 6:30 AM SORT OPERATIONS SUPERVISOR [facility] % Monocytes 9 % 06/29/2024 6:30 AM SORT OPERATIONS SUPERVISOR [facility] % Eosinophils 3 % 06/29/2024 6:30 AM SORT OPERATIONS SUPERVISOR [facility] % Basophils 1 % 06/29/2024 6:30 AM SORT OPERATIONS SUPERVISOR [facility] % Immature Granulocytes 0 % 06/29/2024 6:30 AM SORT OPERATIONS SUPERVISOR [facility] NRBCs per 100 WBC 1(H) <1 /100 025 6:30 AM SORT OPERATIONS SUPERVISOR [facility] Absolute Neutrophils 7.6 1.6 - 8.3 10e3/uL 06/29/2024 6:30 AM SORT OPERATIONS SUPERVISOR [facility] Absolute Lymphocytes 3.1 0.8 - 5.3 10e3/uL 06/29/2024 6:30 AM SORT OPERATIONS SUPERVISOR [facility] Absolute Monocytes 1.1 0.0 - 1.3 10e3/uL 06/29/2024 6:30 AM SORT OPERATIONS SUPERVISOR [facility] Absolute Eosinophils 0.4 0.0 - 0.7 10e3/uL 06/29/2024 6:30 AM SORT OPERATIONS SUPERVISOR [facility] Absolute Basophils 0.1 0.0 - 0.2 10e3/uL 06/29/2024 6:30 AM SORT OPERATIONS SUPERVISOR [facility] Absolute Immature Granulocytes 0.0 <=0.4 10e3/uL 06/29/2024 6:30 AM SORT OPERATIONS SUPERVISOR [facility] Absolute NRBCs 0.1 10e3/uL 06/29/2024 6:30 AM SORT OPERATIONS SUPERVISOR [facility] Blood ARTERIAL LINE / Unknown IVAD (Port) / Unknown 06/29/2024 6:05 AM SORT OPERATIONS SUPERVISOR 06/29/2024 6:17 AM SORT OPERATIONS SUPERVISOR us Rl Elias MD LAB - BLOOD ORDER SYD Final Result [facility] [address], [address] [place] [address], [facility] * (ABNORMAL) Comprehensive metabolic panel (06/29/2024 6:04 AM SORT OPERATIONS SUPERVISOR) Sodium 132(L) 135 - 145 mmol/L 06/29/2024 6:51 AM SORT OPERATIONS SUPERVISOR [facility] Potassium 4.6 3.4 - 5.3 mmol/L 06/29/2024 6:51 AM SORT OPERATIONS SUPERVISOR [facility] Carbon Dioxide (CO2) 21(L) 22 - 29 mmol/L 06/29/2024 6:51 AM SORT OPERATIONS SUPERVISOR [facility] Anion Gap 9 7 - 15 mmol/L 06/29/2024 6:51 AM SORT OPERATIONS SUPERVISOR [facility] Urea Nitrogen 14.3 6.0 - 20.0 mg/dL 06/29/2024 6:51 AM SORT OPERATIONS SUPERVISOR [facility] Creatinine 0.70 0.51 - 0.95 mg/dL 06/29/2024 6:51 AM SORT OPERATIONS SUPERVISOR [facility] GFR Estimate >90 >60 mL/min/1.7 3m2 06/29/2024 6:51 AM SORT OPERATIONS SUPERVISOR [facility] Comment:eGFR calculated 2020 CKD-EPI equation. Calcium 8.9 8.8 - 10.4 mg/dL 06/29/2024 6:51 AM SORT OPERATIONS SUPERVISOR [facility] Chloride 102 98 - 107 mmol/L 06/29/2024 6:51 AM SORT OPERATIONS SUPERVISOR [facility] Glucose 98 70 - 99 mg/dL 06/29/2024 6:51 AM SORT OPERATIONS SUPERVISOR [facility] Alkaline Phosphatase 106 40 - 150 U/L 06/29/2024 6:51 AM SORT OPERATIONS SUPERVISOR [facility] AST 49(H) 0 - 45 U/L 06/29/2024 6:51 AM SORT OPERATIONS SUPERVISOR [facility] ALT 44 0 - 50 U/L 06/29/2024 6:51 AM SORT OPERATIONS SUPERVISOR [facility] Protein Total 7.5 6.4 - 8.3 g/dL 06/29/2024 6:51 AM SORT OPERATIONS SUPERVISOR [facility] Albumin 4.1 3.5 - 5.2 g/dL 06/29/2024 6:51 AM SORT OPERATIONS SUPERVISOR [facility] Bilirubin Total 1.6(H) <=1.2 mg/dL 06/29/2024 6:51 AM SORT OPERATIONS SUPERVISOR [facility] Blood ARTERIAL LINE / Unknown IVAD (Port) / Unknown 06/29/2024 6:04 AM SORT OPERATIONS SUPERVISOR 06/29/2024 6:19 AM SORT OPERATIONS SUPERVISOR us Rl Elias MD LAB - BLOOD ORDER SYD Final Result [facility] [address], [address] [place] [address] [[email or web address]] * (ABNORMAL) Bilirubin direct (06/28/2024 6:06 AM SORT OPERATIONS SUPERVISOR) Bilirubin Direct 0.53(H) 0.00 - 0.30 mg/dL 06/28/2024 9:50 AM SORT OPERATIONS SUPERVISOR [facility] Blood VENOUS LINE / Unknown Venipuncture / Unknown 06/28/2024 6:06 AM SORT OPERATIONS SUPERVISOR 06/28/2024 6:22 AM SORT OPERATIONS SUPERVISOR Rl Elias MD LAB - BLOOD ORDER SYD Final Result Performing Organization Address City/[facility]/ZIP Co de Phone Number [facility] [address], [address] [phone] [[email or web address]] * (ABNORMAL) RBC and Platelet Morphology (06/28/2024 6:06 AM SORT OPERATIONS SUPERVISOR) [facility] RBC Morphology Confirmed RBC Indices 06/28/2024 7:15 AM SORT OPERATIONS SUPERVISOR [facility] Platelet Assessment Automated Count Confirmed. Platelet morphology is normal. Automated Count Confirmed. Platelet morphology is normal. 06/28/2024 7:15 AM SORT OPERATIONS SUPERVISOR [facility] Sickle Cells Slight(A) None Seen 06/28/2024 7:15 AM SORT OPERATIONS SUPERVISOR [facility] Target Cells Moderate(A) None Seen 06/28/2024 7:15 AM SORT OPERATIONS SUPERVISOR [facility] Blood VENOUS LINE / Unknown Venipuncture / Unknown 06/28/2024 6:06 AM SORT OPERATIONS SUPERVISOR 06/28/2024 6:22 AM SORT OPERATIONS SUPERVISOR Rl Elias MD LAB - BLOOD ORDER SYD Final Result [facility] [address], [address] [place] [phone] [[email or web address]] * (ABNORMAL) CBC with platelets and differential (06/28/2024 6:06 AM SORT OPERATIONS SUPERVISOR) [facility] WBC Count 15.3(H) 4.0 - 11.0 10e3/uL 06/28/2024 7:14 AM SORT OPERATIONS SUPERVISOR [facility] RBC Count 2.49(L) 3.80 - 5.20 10e6/uL 06/28/2024 7:14 AM SORT OPERATIONS SUPERVISOR [facility] Hemoglobin 8.2(L) 11.7 - 15.7 g/dL 06/28/2024 7:14 AM SORT OPERATIONS SUPERVISOR [facility] Hematocrit 24.0(L) 35.0 - 47.0 % 06/28/2024 7:14 AM SORT OPERATIONS SUPERVISOR [facility] MCV 96 78 - 100 fL 06/28/2024 7:14 AM SORT OPERATIONS SUPERVISOR [facility] MCH 32.9 26.5 - 33.0 pg 06/28/2024 7:14 AM SORT OPERATIONS SUPERVISOR [facility] MCHC 34.2 31.5 - 36.5 g/dL 06/28/2024 7:14 AM SORT OPERATIONS SUPERVISOR [facility] RDW 18.3(H) 10.0 - 15.0 % 06/28/2024 7:14 AM SORT OPERATIONS SUPERVISOR [facility] Platelet Count 401 150 - 450 10e3/uL 06/28/2024 7:14 AM SORT OPERATIONS SUPERVISOR [facility] % Neutrophils 46 % 06/28/2024 7:14 AM SORT OPERATIONS SUPERVISOR [facility] % Lymphocytes 40 % 06/28/2024 7:14 AM SORT OPERATIONS SUPERVISOR [facility] % Monocytes 10 % 06/28/2024 7:14 AM SORT OPERATIONS SUPERVISOR [facility] % Eosinophils 4 % 06/28/2024 7:14 AM SORT OPERATIONS SUPERVISOR [facility] % Basophils 1 % 06/28/2024 7:14 AM SORT OPERATIONS SUPERVISOR [facility] % Immature Granulocytes 0 % 06/28/2024 7:14 AM SORT OPERATIONS SUPERVISOR [facility] NRBCs per 100 WBC 1(H) <1 /100 025 7:14 AM SORT OPERATIONS SUPERVISOR [facility] Absolute Neutrophils 7.0 1.6 - 8.3 10e3/uL 06/28/2024 7:14 AM SORT OPERATIONS SUPERVISOR [facility] Absolute Lymphocytes 6.0(H) 0.8 - 5.3 10e3/uL 06/28/2024 7:14 AM SORT OPERATIONS SUPERVISOR [facility] Absolute Monocytes 1.5(H) 0.0 - 1.3 10e3/uL 06/28/2024 7:14 AM SORT OPERATIONS SUPERVISOR [facility] Absolute Eosinophils 0.5 0.0 - 0.7 10e3/uL 06/28/2024 7:14 AM SORT OPERATIONS SUPERVISOR [facility] Absolute Basophils 0.2 0.0 - 0.2 10e3/uL 06/28/2024 7:14 AM SORT OPERATIONS SUPERVISOR [facility] Absolute Immature Granulocytes 0.1 <=0.4 10e3/uL 06/28/2024 7:14 AM SORT OPERATIONS SUPERVISOR [facility] Absolute NRBCs 0.1 10e3/uL 06/28/2024 7:14 AM SORT OPERATIONS SUPERVISOR [facility] Blood VENOUS LINE / Unknown Venipuncture / Unknown 06/28/2024 6:06 AM SORT OPERATIONS SUPERVISOR 06/28/2024 6:22 AM SORT OPERATIONS SUPERVISOR Rl Elias MD LAB - BLOOD ORDER SYD Final Result Performing Organization Address City/[facility] de Phone Number [facility] [address], [address] * (ABNORMAL) Reticulocyte count (06/28/2024 6:06 AM SORT OPERATIONS SUPERVISOR) % Reticulocyte 12.7(H) 0.5 - 2.0 % 06/28/2024 6:57 AM SORT OPERATIONS SUPERVISOR [facility] Comment:x2 dilution Absolute Reticulocyte 0.316(H) 0.025 - 0.095 10e6/uL 06/28/2024 6:57 AM SORT OPERATIONS SUPERVISOR [facility] Comment:x2 dilution Blood VENOUS LINE / Unknown Venipuncture / Unknown 06/28/2024 6:06 AM SORT OPERATIONS SUPERVISOR 06/28/2024 6:22 AM SORT OPERATIONS SUPERVISOR Rl Elias MD LAB - BLOOD ORDER SYD Final Result Performing Organization Address City/[facility]/ZIP Ia de Phone Number [facility] [address], [address] [phone] * (ABNORMAL) Lactate Dehydrogenase (06/28/2024 6:06 AM SORT OPERATIONS SUPERVISOR) Lactate Dehydrogenase 451(H) 0 - 250 U/L 06/28/2024 6:51 AM SORT OPERATIONS SUPERVISOR [facility] Blood VENOUS LINE / Unknown Venipuncture / Unknown 06/28/2024 6:06 AM SORT OPERATIONS SUPERVISOR 06/28/2024 6:22 AM SORT OPERATIONS SUPERVISOR Rl Elias MD LAB - BLOOD ORDER SYD Final Result [facility] [address], [address] [place] [address], [facility] * (ABNORMAL) Comprehensive metabolic panel (06/28/2024 6:06 AM SORT OPERATIONS SUPERVISOR) Sodium 134(L) 135 - 145 mmol/L 06/28/2024 6:51 AM SORT OPERATIONS SUPERVISOR [facility] Potassium 4.6 3.4 - 5.3 mmol/L 06/28/2024 6:51 AM SORT OPERATIONS SUPERVISOR [facility] Carbon Dioxide (CO2) 22 22 - 29 mmol/L 06/28/2024 6:51 AM SORT OPERATIONS SUPERVISOR [facility] Anion Gap 7 7 - 15 mmol/L 06/28/2024 6:51 AM SORT OPERATIONS SUPERVISOR [facility] Urea Nitrogen 11.8 6.0 - 20.0 mg/dL 06/28/2024 6:51 AM SORT OPERATIONS SUPERVISOR [facility] Creatinine 0.70 0.51 - 0.95 mg/dL 06/28/2024 6:51 AM SORT OPERATIONS SUPERVISOR [facility] GFR Estimate >90 >60 mL/min/1.7 3m2 06/28/2024 6:51 AM SORT OPERATIONS SUPERVISOR [facility] Comment:eGFR calculated us2020 CKD-EPI equation. Calcium 8.9 8.8 - 10.4 mg/dL 06/28/2024 6:51 AM SORT OPERATIONS SUPERVISOR [facility] Chloride 105 98 - 107 mmol/L 06/28/2024 6:51 AM SORT OPERATIONS SUPERVISOR [facility] Glucose 88 70 - 99 mg/dL 06/28/2024 6:51 AM SORT OPERATIONS SUPERVISOR [facility] Alkaline Phosphatase 106 40 - 150 U/L 06/28/2024 6:51 AM SORT OPERATIONS SUPERVISOR [facility] AST 34 0 - 45 U/L 06/28/2024 6:51 AM SORT OPERATIONS SUPERVISOR [facility] ALT 33 0 - 50 U/L 06/28/2024 6:51 AM SORT OPERATIONS SUPERVISOR [facility] Protein Total 7.2 6.4 - 8.3 g/dL 06/28/2024 6:51 AM SORT OPERATIONS SUPERVISOR [facility] Albumin 4.0 3.5 - 5.2 g/dL 06/28/2024 6:51 AM SORT OPERATIONS SUPERVISOR [facility] Bilirubin Total 1.3(H) <=1.2 mg/dL 06/28/2024 6:51 AM SORT OPERATIONS SUPERVISOR [facility] Blood VENOUS LINE / Unknown Venipuncture / Unknown 06/28/2024 6:06 AM SORT OPERATIONS SUPERVISOR 06/28/2024 6:22 AM SORT OPERATIONS SUPERVISOR Rl Elias MD LAB - BLOOD ORDER SYD Final Result Performing Organization Address City/[facility]/ZIP Co de Phone Number LABORATORY [facility] [address] * Heparin Unfractionated Anti Xa Level (06/28/2024 1:57 AM SORT OPERATIONS SUPERVISOR) Anti Xa Unfractionated Heparin 0.45 For Reference Range, See Comment IU/mL 06/28/2024 2:32 AM SORT OPERATIONS SUPERVISOR [facility] Blood VENOUS LINE / Unknown Venipuncture / Unknown 06/28/2024 1:57 AM SORT OPERATIONS SUPERVISOR 06/28/2024 2:17 AM SORT OPERATIONS SUPERVISOR Narrative [facility] - 06/28/2024 2:32 AM SORT OPERATIONS SUPERVISOR Therapeutic Range: UFH: 0.25-0.50 IU/mL for low intensity dosing, 0.30-0.70 IU/mL for high intensity dosing DVT and PE. This test is not validated for other direct factor X inhibitors (e.g. rivaroxaban, apixaban, edoxaban, betrixaban, fondaparinux) and should not be used for monitoring of other medications. Alex Gillespie MD LAB - BLOOD ORDERABLES Final Re sult Performing Organization Address City/[facility]/ZIP Co de Phone Number LABORATORY [facility] [address], [address] * Heparin Unfractionated Anti Xa Level (06/27/2024 7:14 PM SORT OPERATIONS SUPERVISOR) Anti Xa Unfractionated Heparin 0.39 For Reference Range, See Comment IU/mL 06/27/2024 7:58 PM SORT OPERATIONS SUPERVISOR [facility] Blood STRUCTURE OF RIGHT HAND / Unknown Venipuncture / Unknown 06/27/2024 7:14 PM SORT OPERATIONS SUPERVISOR 06/27/2024 7:21 PM SORT OPERATIONS SUPERVISOR Narrative [facility] - 06/27/2024 7:58 PM SORT OPERATIONS SUPERVISOR Therapeutic Range: UFH: 0.25-0.50 IU/mL for low intensity dosing, 0.30-0.70 IU/mL for high intensity dosing DVT and PE. This test is not validated for other direct factor X inhibitors (e.g. rivaroxaban, apixaban, edoxaban, betrixaban, fondaparinux) and should not be used for monitoring of other medications. us Octavio Rivera MD LAB - BLOOD ORDERABLES Final Res ult LABORATORY [facility] Lab [address], [address] [place] [address] * Extra Green Top ([place] Heparin) Tube (06/27/2024 5:55 PM SORT OPERATIONS SUPERVISOR) Hold Specimen [facility] 06/27/2024 8:31 PM SORT OPERATIONS SUPERVISOR [facility] Blood STRUCTURE OF RIGHT WRIST REGION / Unknown Venipuncture / Unknown 06/27/2024 5:55 PM SORT OPERATIONS SUPERVISOR 06/27/2024 7:22 PM SORT OPERATIONS SUPERVISOR us Alex Gillespie MD LAB - BLOOD ORDERABLES Final Re sult Performing Organization Address City/[facility]/ZIP Co de Phone Number LABORATORY [facility] Lab [address], [address] * ECHO COMPLETE (06/27/2024 2:33 PM SORT OPERATIONS SUPERVISOR) LVEF 55-60% CARDIOLOGY RESULTS Anatomical Region Laterality Modality Echocardiography 06/27/2024 1:58 PM SORT OPERATIONS SUPERVISOR Narrative 06/27/2024 2:51 PM SORT OPERATIONS SUPERVISOR [id number]^BRITTANEY^AAMATEO [facility] Ech[facility] Laboratory [address] [place] [address] Name: LEW HERNÁNDEZ : 1995 Study Date: 06/27/2024 01:58 PM Age: 29 yrs Gender: Female Patient Location: [facility] Reason For Study: Pulmonary Emboli Ordering Physician: [...] Procedure Note Salvador Perea MD - 06/27/2024 [id number]^BRITTANEY^JERMAINE [facility] E[facility] Laboratory [address] [place] [address] Name: LEW HERNÁNDEZ : 1995 Study Date: 06/27/2024 01:58 PM Age: 29 yrs Gender: Female Patient Location: [facility] Reason For Study: Pulmonary Emboli Ordering Physician: [...] Unfractionated Anti Xa Level (06/27/2024 12:39 PM SORT OPERATIONS SUPERVISOR) Anti Xa Unfractionated Heparin 0.29 For Reference Range, See Comment IU/mL 06/27/2024 1:22 PM SORT OPERATIONS SUPERVISOR [facility] Blood STRUCTURE OF LEFT HAND / Unknown Venipuncture / Unknown 06/27/2024 12:39 PM SORT OPERATIONS SUPERVISOR 06/27/2024 12:54 PM SORT OPERATIONS SUPERVISOR Narrative [facility] - 06/27/2024 1:22 PM SORT OPERATIONS SUPERVISOR Therapeutic Range: UFH: 0.25-0.50 IU/mL for low intensity dosing, 0.30-0.70 IU/mL for high intensity dosing DVT and PE. This test is not validated for other direct factor X inhibitors (e.g. rivaroxaban, apixaban, edoxaban, betrixaban, fondaparinux) and should not be used for monitoring of other medications. us Esdras Markham MD LAB - BLOOD ORDERABLES Final Res ult [facility] [address], [address] [place] [address], [facility] * US Lower Extremity Venous Duplex Bilateral (06/27/2024 11:21 AM SORT OPERATIONS SUPERVISOR) Anatomical Region Laterality Modality Vascular, Thigh, Leg Ultrasound Impressions 06/27/2024 11:45 AM SORT OPERATIONS SUPERVISOR IMPRESSION: No evidence of deep venous thrombosis in either lower extremity. I have personally reviewed the examination and initial interpretation and I agree with the findings. NINOSKA QUAN MD Narrative 06/27/2024 11:45 AM SORT OPERATIONS SUPERVISOR EXAMINATION: DOPPLER VENOUS ULTRASOUND OF BILATERAL LOWER [...] findings. NINOSKA QUAN MD Rl Elias MD [facility] ORDERABLES Final Result * Influenza A/B, RSV and SARS-CoV2 PCR (COVID-19) Nose (06/27/2024 8:43 AM SORT OPERATIONS SUPERVISOR) Influenza A PCR Negative Negative 06/27/2024 10:03 AM SORT OPERATIONS SUPERVISOR [facility] Influenza B PCR Negative Negative 06/27/2024 10:03 AM SORT OPERATIONS SUPERVISOR [facility] RSV PCR Negative Negative 06/27/2024 10:03 AM SORT OPERATIONS SUPERVISOR [facility] SARS CoV2 PCR Negative Negative 06/27/2024 10:03 AM SORT OPERATIONS SUPERVISOR [facility] Comment:NEGATIVE: SARS-CoV-2 (COVID-19) RNA not detected, presumed negative. Swab NASAL STRUCTURE / Unknown Non-blood Collection / Unknown 06/27/2024 8:43 AM SORT OPERATIONS SUPERVISOR 06/27/2024 8:59 AM SORT OPERATIONS SUPERVISOR Narrative [facility] - 06/27/2024 10:03 AM SORT OPERATIONS SUPERVISOR Testing was performed using the Xpert Xpress CoV2/Flu/RSV Assay on the [employer] GeneXpert Instrument. This test should be ordered [...] by the [facility] [employer]. These laboratories are certified under the Clinical Laboratory Improvement Amendments of 1988 (CLIA-88) as qualified to perfom high complexity laboratory testing. Rl Elias MD LAB - MICRO GENER AL ORDERABLES Final Result [facility] Inf. Diseases Diag. Lab [address] [facility], [address] [place] [address] [[email or web address]] * (ABNORMAL) UA with Microscopic reflex to Culture (06/27/2024 8:12 AM SORT OPERATIONS SUPERVISOR) Color Urine Light Yellow Colorless, Straw, Light Yellow, Yellow 06/27/2024 8:29 AM SORT OPERATIONS SUPERVISOR [facility] Appearance Urine Clear Clear 06/28/19 8:29 AM SORT OPERATIONS SUPERVISOR [facility] Glucose Urine Negative Negative mg/dL 06/27/2024 8:29 AM SORT OPERATIONS SUPERVISOR [facility] Bilirubin Urine Negative Negative 8:29 AM SORT OPERATIONS SUPERVISOR [facility] Ketones Urine Negative Negative mg/dL 06/27/2024 8:29 AM SORT OPERATIONS SUPERVISOR [facility] Specific Golden Urine 1.011 1.003 - 1.035 06/27/2024 8:29 AM SORT OPERATIONS SUPERVISOR [facility] Blood Urine Negative Negative 06/27/2024 8:29 AM SORT OPERATIONS SUPERVISOR [facility] pH Urine 7.0 5.0 - 7.0 06/27/2024 8:29 AM SORT OPERATIONS SUPERVISOR [facility] Protein Albumin Urine Negative Negative mg/dL 06/27/2024 8:29 AM SORT OPERATIONS SUPERVISOR [facility] Urobilinogen Urine Normal Normal, 2.0 mg/dL 06/27/2024 8:29 AM SORT OPERATIONS SUPERVISOR [facility] Nitrite Urine Negative Negative 06/27/2024 8:29 AM SORT OPERATIONS SUPERVISOR [facility] Leukocyte Esterase Urine Negative Negative 06/27/2024 8:29 AM SORT OPERATIONS SUPERVISOR [facility] RBC Urine 0 <=2 /HPF 06/27/2024 8:29 AM SORT OPERATIONS SUPERVISOR [facility] WBC Urine 0 <=5 /HPF 06/27/2024 8:29 AM SORT OPERATIONS SUPERVISOR [facility] Squamous Epithelials Urine 2(H) <=1 /HPF 06/27/2024 8:29 AM SORT OPERATIONS SUPERVISOR [facility] Urine URINE SPECIMEN OBTAINED BY CLEAN CATCH PROCEDURE / Unknown Non-blood Collection / Unknown 06/27/2024 8:12 AM SORT OPERATIONS SUPERVISOR 06/27/2024 8:18 AM SORT OPERATIONS SUPERVISOR Narrative [facility] - 06/27/2024 8:29 AM SORT OPERATIONS SUPERVISOR Urine Culture not indicated Rl Elias MD LAB - URINE ORDER SYD Final Result U LABORATORY [facility] [address] [facility] [address] [place] [address] [[email or web address]] * Adult Type and Screen (06/27/2024 5:57 AM SORT OPERATIONS SUPERVISOR) ABO/RH(D) A POS 06/27/2024 11:54 AM SORT OPERATIONS SUPERVISOR [facility] Antibody Screen Negative Negative 06/27/2024 11:54 AM SORT OPERATIONS SUPERVISOR [facility] Comment:Current antibody scr een is negative. Patient has a history of antibody(ies). A delay in compatible red blood cells may occur. SPECIMEN EXPIRATION DATE [id number] 06/27/2024 11:54 AM SORT OPERATIONS SUPERVISOR [facility] Blood BLOOD SPECIMEN / Unknown Venipuncture / Unknown 06/27/2024 5:57 AM SORT OPERATIONS SUPERVISOR 06/27/2024 6:07 AM SORT OPERATIONS SUPERVISOR Rl Elias MD LAB - BLOOD BANK TEST ORDER Final Result Performing Organization Address City/[facility] Co de Phone Number [facility] [address] [place] [address] [[email or web address]] * (ABNORMAL) RBC and Platelet Morphology (06/27/2024 5:57 AM SORT OPERATIONS SUPERVISOR) RBC Morphology Confirmed RBC Indices 06/27/2024 10:33 AM SORT OPERATIONS SUPERVISOR [facility] Platelet Assessment Automated Count Confirmed. Platelet morphology is normal. Automated Count Confirmed. Platelet morphology is normal. 06/27/2024 10:33 AM SORT OPERATIONS SUPERVISOR [facility] Colp Cells Moderate(A) None Seen 06/27/2024 10:33 AM SORT OPERATIONS SUPERVISOR [facility] Polychromasia Slight(A) None Seen 06/27/2024 10:33 AM SORT OPERATIONS SUPERVISOR [facility] Sickle Cells Slight(A) None Seen 06/27/2024 10:33 AM SORT OPERATIONS SUPERVISOR [facility] Target Cells Slight(A) None Seen 06/27/2024 10:33 AM SORT OPERATIONS SUPERVISOR [facility] Blood BLOOD SPECIMEN / Unknown Venipuncture / Unknown 06/27/2024 5:57 AM SORT OPERATIONS SUPERVISOR 06/27/2024 6:07 AM SORT OPERATIONS SUPERVISOR us Rl Elias MD LAB - BLOOD ORDER SYD Final Result [facility] [address] [facility], [address] [place] [phone] [[email or web address] * (ABNORMAL) CBC with platelets and differential (06/27/2024 5:57 AM SORT OPERATIONS SUPERVISOR) WBC Count 17.8(H) 4.0 - 11.0 10e3/uL 06/27/2024 10:36 AM SORT OPERATIONS SUPERVISOR [facility] Comment:Albumin treated bloo d due to Smudge Cells. RBC Count 2.60(L) 3.80 - 5.20 10e6/uL 06/27/2024 10:36 AM SORT OPERATIONS SUPERVISOR [facility] Hemoglobin 8.5(L) 11.7 - 15.7 g/dL 06/27/2024 10:36 AM SORT OPERATIONS SUPERVISOR [facility] Hematocrit 25.9(L) 35.0 - 47.0 % 06/27/2024 10:36 AM SORT OPERATIONS SUPERVISOR [facility] MCV 100 78 - 100 fL 06/27/2024 10:36 AM SORT OPERATIONS SUPERVISOR [facility] MCH 32.7 26.5 - 33.0 pg 06/27/2024 10:36 AM SORT OPERATIONS SUPERVISOR [facility] MCHC 32.8 31.5 - 36.5 g/dL 06/27/2024 10:36 AM SORT OPERATIONS SUPERVISOR [facility] RDW 19.2(H) 10.0 - 15.0 % 06/27/2024 10:36 AM SORT OPERATIONS SUPERVISOR [facility] Platelet Count 469(H) 150 - 450 10e3/uL 06/27/2024 10:36 AM SORT OPERATIONS SUPERVISOR [facility] % Neutrophils 44 % 06/27/2024 10:36 AM SORT OPER[employer] SUPERVISOR [facility] % Lymphocytes 46 % 06/27/2024 10:36 AM [employer]PER[employer] SUPERVISOR [facility] % Monocytes 7 % 06/27/2024 10:36 AM [employer]PER[employer] SUPERVISOR [facility] % Eosinophils 3 % 06/27/2024 10:36 AM [employer]PER[employer] SUPERVISOR [facility] % Basophils 1 % 06/27/2024 10:36 AM [employer]PER[employer] SUPERVISOR [facility] % Immature Granulocytes 0 % 06/27/2024 10:36 AM [employer]PER[employer] SUPERVISOR [facility] NRBCs per 100 WBC 1(H) <1 /100 025 10:36 AM [employer] SUPERVISOR [facility] Absolute Neutrophils 7.6 1.6 - 8.3 10e3/uL 06/27/2024 10:36 AM [employer] SUPERVISOR [facility] Absolute Lymphocytes 8.0(H) 0.8 - 5.3 10e3/uL 06/27/2024 10:36 AM [employer] SUPERVISOR [facility] Absolute Monocytes 1.2 0.0 - 1.3 10e3/uL 06/27/2024 10:36 AM [employer] SUPERVISOR [facility] Absolute Eosinophils 0.5 0.0 - 0.7 10e3/uL 06/27/2024 10:36 AM [employer] SUPERVISOR [facility] Absolute Basophils 0.2 0.0 - 0.2 10e3/uL 06/27/2024 10:36 AM [employer] SUPERVISOR [facility] Absolute Immature Granulocytes 0.1 <=0.4 10e3/uL 06/27/2024 10:36 AM [employer] SUPERVISOR [facility] Absolute NRBCs 0.2 10e3/uL 06/27/2024 10:36 AM [employer] SUPERVISOR [facility] Blood BLOOD SPECIMEN / Unknown Venipuncture / Unknown 06/27/2024 5:57 AM [employer] SUPERVISOR 06/27/2024 6:07 AM [employer] SUPERVISOR Rl Elias MD LAB - BLOOD ORDER SYD Final Result [facility] [address] [place] [address] [email or web address]] * (ABNORMAL) Reticulocyte count (06/27/2024 5:57 AM [employer] SUPERVISOR) [facility] % Reticulocyte 15.5(H) 0.5 - 2.0 % 06/27/2024 9:16 AM S[employer] OPERATIONS SUPERVISOR [facility] Comment:x2 dilution Absolute Reticulocyte 0.404(H) 0.025 - 0.095 10e6/uL 06/27/2024 9:16 AM SORT OPERATIONS SUPERVISOR [facility] Comment:x2 dilution Blood BLOOD SPECIMEN / Unknown Venipuncture / Unknown 06/27/2024 5:57 AM SORT OPERATIONS SUPERVISOR 06/27/2024 6:07 AM SORT OPERATIONS SUPERVISOR Rl Elias MD LAB - BLOOD ORDER SYD Final Result [facility] [address] [facility], [address] * (ABNORMAL) Hepatic panel (06/27/2024 5:57 AM SORT OPERATIONS SUPERVISOR) Protein Total 7.4 6.4 - 8.3 g/dL 06/27/2024 9:06 AM SORT OPERATIONS SUPERVISOR [facility] Albumin 4.0 3.5 - 5.2 g/dL 06/27/2024 9:06 AM SORT OPERATIONS SUPERVISOR [facility] Bilirubin Total 1.2 <=1.2 mg/dL 06/27/2024 9:06 AM SORT OPERATIONS SUPERVISOR [facility] Alkaline Phosphatase 113 40 - 150 U/L 06/27/2024 9:06 AM SORT OPERATIONS SUPERVISOR [facility] AST 41 0 - 45 U/L 06/27/2024 9:06 AM SORT OPERATIONS SUPERVISOR [facility] ALT 35 0 - 50 U/L 06/27/2024 9:06 AM SORT OPERATIONS SUPERVISOR [facility] Bilirubin Direct 0.45(H) 0.00 - 0.30 mg/dL 06/27/2024 9:06 AM SORT OPERATIONS SUPERVISOR [facility] Blood BLOOD SPECIMEN / Unknown Venipuncture / Unknown 06/27/2024 5:57 AM SORT OPERATIONS SUPERVISOR 06/27/2024 6:06 AM SORT OPERATIONS SUPERVISOR Rl Elias MD LAB - BLOOD ORDER SYD Final Result [facility] [address] [facility], [address] * (ABNORMAL) CBC with platelets (06/27/2024 5:57 AM SORT OPERATIONS SUPERVISOR) WBC Count 17.8(H) 4.0 - 11.0 10e3/uL 06/27/2024 6:16 AM SORT OPERATIONS SUPERVISOR [facility] RBC Count 2.60(L) 3.80 - 5.20 10e6/uL 06/27/2024 6:16 AM SORT OPERATIONS SUPERVISOR [facility] Hemoglobin 8.5(L) 11.7 - 15.7 g/dL 06/27/2024 6:16 AM SORT OPERATIONS SUPERVISOR [facility] Hematocrit 25.9(L) 35.0 - 47.0 % 06/27/2024 6:16 AM SORT OPERATIONS SUPERVISOR [facility] MCV 100 78 - 100 fL 06/27/2024 6:16 AM SORT OPERATIONS SUPERVISOR [facility] MCH 32.7 26.5 - 33.0 pg 06/27/2024 6:16 AM SORT OPERATIONS SUPERVISOR [facility] MCHC 32.8 31.5 - 36.5 g/dL 06/27/2024 6:16 AM SORT OPERATIONS SUPERVISOR [facility] RDW 19.2(H) 10.0 - 15.0 % 06/27/2024 6:16 AM SORT OPERATIONS SUPERVISOR [facility] Platelet Count 469(H) 150 - 450 10e3/uL 06/27/2024 6:16 AM SORT OPERATIONS SUPERVISOR [facility] Blood BLOOD SPECIMEN / Unknown Venipuncture / Unknown 06/27/2024 5:57 AM SORT OPERATIONS SUPERVISOR 06/27/2024 6:07 AM SORT OPERATIONS SUPERVISOR us Jermaine Quispe MD LAB - BLOOD ORDERABLES Final Res ult [facility] [address] [facility], [address] [phone] [[email or web address]] * (ABNORMAL) Basic metabolic panel (06/27/2024 5:57 AM SORT OPERATIONS SUPERVISOR) Sodium 136 135 - 145 mmol/L 06/27/2024 7:08 AM SORT OPERATIONS SUPERVISOR [facility] Potassium 4.2 3.4 - 5.3 mmol/L 06/27/2024 7:08 AM SORT OPERATIONS SUPERVISOR [facility] Chloride 104 98 - 107 mmol/L 06/27/2024 7:08 AM SORT OPERATIONS SUPERVISOR [facility] Carbon Dioxide (CO2) 23 22 - 29 mmol/L 06/27/2024 7:08 AM SORT OPERATIONS SUPERVISOR [facility] Anion Gap 9 7 - 15 mmol/L 06/27/2024 7:08 AM SORT OPERATIONS SUPERVISOR [facility] Urea Nitrogen 8.0 6.0 - 20.0 mg/dL 06/27/2024 7:08 AM SORT OPERATIONS SUPERVISOR [facility] Creatinine 0.74 0.51 - 0.95 mg/dL 06/27/2024 7:08 AM SORT OPERATIONS SUPERVISOR [facility] GFR Estimate >90 >60 mL/min/1.7 3m2 06/27/2024 7:08 AM SORT OPERATIONS SUPERVISOR [facility] Comment:eGFR calculated usin 2020 CKD-EPI equation. Calcium 8.7(L) 8.8 - 10.4 mg/dL 06/27/2024 7:08 AM SORT OPERATIONS SUPERVISOR [facility] Glucose 90 70 - 99 mg/dL 06/27/2024 7:08 AM SORT OPERATIONS SUPERVISOR [facility] Blood BLOOD SPECIMEN / Unknown Venipuncture / Unknown 06/27/2024 5:57 AM SORT OPERATIONS SUPERVISOR 06/27/2024 6:06 AM SORT OPERATIONS SUPERVISOR Jermaine Quispe MD LAB - BLOOD ORDERABLES Final Res ult [facility] [address] [facility], [address] [place] [phone] [[email or web address]] * Heparin Unfractionated Anti Xa Level (06/27/2024 5:56 AM SORT OPERATIONS SUPERVISOR) [facility] Signature Anti Xa Unfractionated Heparin 0.30 For Reference Range, See Comment IU/mL 06/27/2024 6:29 AM SORT OPERATIONS SUPERVISOR [facility] Blood STRUCTURE OF RIGHT HAND / Unknown Venipuncture / Unknown 06/27/2024 5:56 AM SORT OPERATIONS SUPERVISOR 06/27/2024 6:07 AM SORT OPERATIONS SUPERVISOR Narrative [facility] - 06/27/2024 6:29 AM SORT OPERATIONS SUPERVISOR Therapeutic Range: UFH: 0.25-0.50 IU/mL for low intensity dosing, 0.30-0.70 IU/mL for high intensity dosing DVT and PE. This test is not validated for other direct factor X inhibitors (e.g. rivaroxaban, apixaban, edoxaban, betrixaban, fondaparinux) and should not be used for monitoring of other medications. Esdras Markham MD LAB - BLOOD ORDERABLES Final Res ult [facility] [address] [facility], [address] * Heparin Unfractionated Anti Xa Level (06/26/2024 10:46 PM SORT OPERATIONS SUPERVISOR) Anti Xa Unfractionated Heparin 0.28 For Reference Range, See Comment IU/mL 06/26/2024 11:13 PM SORT OPERATIONS SUPERVISOR [facility] Blood STRUCTURE OF RIGHT HAND / Unknown Venipuncture / Unknown 06/26/2024 10:46 PM SORT OPERATIONS SUPERVISOR 06/26/2024 10:55 PM SORT OPERATIONS SUPERVISOR Narrative [facility] - 06/26/2024 11:13 PM SORT OPERATIONS SUPERVISOR Therapeutic Range: UFH: 0.25-0.50 IU/mL for low intensity dosing, 0.30-0.70 IU/mL for high intensity dosing DVT and PE. This test is not validated for other direct factor X inhibitors (e.g. rivaroxaban, apixaban, edoxaban, betrixaban, fondaparinux) and should not be used for monitoring of other medications. Jermaine Quispe MD LAB - BLOOD ORDERABLES Final Res ult Performing Organization Address [facility]/ZIP Co de Phone Number LABORATORY [facility] Core Lab [address] [facility], [address] [place] [address] * (ABNORMAL) Erythrocyte sedimentation rate auto (06/26/2024 6:46 PM SORT OPERATIONS SUPERVISOR) Pathologist [facility] Erythrocyte Sedimentation Rate 24(H) 0 - 20 mm/hr 06/26/2024 7:28 PM SORT OPERATIONS SUPERVISOR [facility] Blood BLOOD SPECIMEN / Unknown Venipuncture / Unknown 06/26/2024 6:46 PM SORT OPERATIONS SUPERVISOR 06/26/2024 7:14 PM SORT OPERATIONS SUPERVISOR Jermaine Quispe MD LAB - BLOOD ORDERABLES Final Res ult [facility] [address] [facility], [address] * Blood Culture Peripheral Blood (06/26/2024 6:46 PM SORT OPERATIONS SUPERVISOR) Culture No Growth 07/01/2024 9:47 PM SORT OPERATIONS SUPERVISOR [facility] Blood BLOOD SPECIMEN / Unknown Venipuncture / Unknown 06/26/2024 6:46 PM SORT OPERATIONS SUPERVISOR 06/26/2024 7:14 PM SORT OPERATIONS SUPERVISOR Jermaine Quispe MD LAB - MICRO GENERAL ORDERABLES F inal Result Performing Organization Address City/[facility]/ZIP Co de Phone Number [facility]AT[facility] Inf. Diseases Diag. Lab [address] [facility], [address] * Blood Culture Peripheral Blood (06/26/2024 6:46 PM SORT OPERATIONS SUPERVISOR) Culture No Growth 07/01/2024 9:47 PM SORT OPERATIONS SUPERVISOR [facility] Blood BLOOD SPECIMEN / Unknown Venipuncture / Unknown 06/26/2024 6:46 PM SORT OPERATIONS SUPERVISOR 06/26/2024 7:15 PM SORT OPERATIONS SUPERVISOR Narrative [facility] - 07/01/2024 9:47 PM SORT OPERATIONS SUPERVISOR Only an Aerobic Blood Culture Bottle was collected, interpret results with caution. Jermaine Quispe MD LAB - MICRO GENERAL ORDERABLES F inal Result Performing Organization Address City/[facility]/ZIP Co de Phone Number [facility] Inf. Diseases Diag. Lab [address] [facility], [address] * EKG 12 lead (06/26/2024 5:19 PM SORT OPERATIONS SUPERVISOR) Systolic Blood Pressure mmHg RADIOLOGY RESULTS Diastolic Blood Pressure mmHg RADIOLOGY RESULTS Ventricular Rate 79 BPM RAD IOLOGY RESULTS Atrial Rate 79 BPM RADIOLOG Y RESULTS WV Interval 160 ms RADIOLOG Y RESULTS QRS Duration 78 ms RADIOLO GY RESULTS QT 380 ms RADIOLOGY RESULTS QTc 435 ms RADIOLOGY RESULTS P [place] 39 degrees RADIOLOGY RESULTS R AXIS 42 degrees RADIOLOGY RESULTS T [place] 18 degrees RADIOLOGY RESULTS Interpretation ECG Sinus rhythm Normal ECG Unconfirmed report - interpretation of this ECG is computer generated - see medical record for final interpretation Confirmed by - EMERGENCY ROOM, PHYSICIAN ([id number]), associate editor Woody Patten ([id number]) on 06/27/2024 6:46:34 AM RADIOLOGY RESULTS 06/26/2024 5:19 PM SORT OPERATIONS SUPERVISOR 06/27/2024 6:46 AM SORT OPERATIONS SUPERVISOR us Jayden Adhikari MD ECG ORDERABLES Edited Resul t - Final RADIOLOGY RESULTS * CT Chest Pulmonary Embolism w Contrast (06/26/2024 4:15 PM SORT OPERATIONS SUPERVISOR) Anatomical Region Laterality Modality Chest, SUBRAD CT BODY, UMP CT CHEST Computed Tomography Impressions 06/26/2024 4:29 PM SORT OPERATIONS SUPERVISOR IMPRESSION: Bilateral pulmonary emboli and bilateral pulmonary nodules, cannot exclude septic emboli the lungs given 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 No definitive evidence of right heart strain. Some bony changes again noted of sickle cell in the thoracic spine and humeral heads typical of microvascular insults related to sickle cell. EVY FUENTES MD Narrative 06/26/2024 4:29 PM SORT OPERATIONS SUPERVISOR CT chest pulmonary angiogram with contrast INDICATION: [...] XR, PA & LAT (06/26/2024 3:13 PM SORT OPERATIONS SUPERVISOR) Anatomical Region Laterality Modality Chest Digital Radiogra phy Impressions 06/26/2024 3:24 PM SORT OPERATIONS SUPERVISOR IMPRESSION: 1. Stable appearance of right middle lobe opacities which may represent infiltrate versus atelectasis. 2. No new or worsening cardiopulmonary abnormality. I have personally reviewed the examination and initial interpretation and I agree with the findings. EVY FUENTES MD Narrative 06/26/2024 3:24 PM SORT OPERATIONS SUPERVISOR EXAM: XR CHEST 2 VIEWS 06/26/2024 3:13 [...] Final Result * Procalcitonin (06/26/2024 2:42 PM SORT OPERATIONS SUPERVISOR) Procalcitonin 0.03 <0.50 ng/mL 06/26/2024 5:02 PM SORT OPERATIONS SUPERVISOR [facility] Comment: Interpretation and Recommendations <0.5 [...] See Procalcitonin Guidance document for more details. [email or web address] Factors that may affect PCT levels (not [...] Unknown Venipuncture / Unknown 06/26/2024 2:42 PM SORT OPERATIONS SUPERVISOR 06/26/2024 2:52 PM SORT OPERATIONS SUPERVISOR Jayden Adhikari MD LAB - BLOOD ORDERABLES Final Result U [facility] [place] [facility] [address] [facility], [address] * CRP inflammation (06/26/2024 2:42 PM SORT OPERATIONS SUPERVISOR) [facility] CRP Inflammation 4.22 <5.00 mg/L 06/27/19 25 5:02 PM SORT OPERATIONS SUPERVISOR [facility] Blood BLOOD SPECIMEN / Unknown Venipuncture / Unknown 06/26/2024 2:42 PM SORT OPERATIONS SUPERVISOR 06/26/2024 2:52 PM SORT OPERATIONS SUPERVISOR Jayden Adhikari MD LAB - BLOOD ORDERABLES Final Result Performing Organization Address City/[facility]/ZIP Co de Phone Number U [facility] [facility] [address] [facility], [address] * Adult Type and Screen (06/26/2024 2:42 PM SORT OPERATIONS SUPERVISOR) ABO/RH(D) A POS 06/26/2024 2:30 PM SORT OPERATIONS SUPERVISOR [facility] Antibody Screen Negative Negative 06/26/2024 2:30 PM SORT OPERATIONS SUPERVISOR [facility] Comment:Current antibody scr een is negative. Patient has a history of antibody(ies). A delay in compatible red blood cells may occur. SPECIMEN EXPIRATION DATE [id number] 06/26/2024 2:30 PM SORT OPERATIONS SUPERVISOR [facility] Blood BLOOD SPECIMEN / Unknown Venipuncture / Unknown 06/26/2024 2:42 PM SORT OPERATIONS SUPERVISOR 06/26/2024 2:50 PM SORT OPERATIONS SUPERVISOR Jayden Adhikari MD LAB - BLOOD BANK TEST ORDER Final Result BLOOD BANK [address] [place] [phone] [[email or web address] * (ABNORMAL) CBC with platelets and differential (06/26/2024 2:42 PM SORT OPERATIONS SUPERVISOR) WBC Count 12.3(H) 4.0 - 11.0 10e3/uL 06/26/2024 3:23 PM SORT OPERATIONS SUPERVISOR [facility] RBC Count 2.58(L) 3.80 - 5.20 10e6/uL 06/26/2024 3:23 PM SORT OPERATIONS SUPERVISOR [facility] Hemoglobin 8.5(L) 11.7 - 15.7 g/dL 06/26/2024 3:23 PM SORT OPERATIONS SUPERVISOR [facility] Hematocrit 26.1(L) 35.0 - 47.0 % 06/26/2024 3:23 PM SORT OPERATIONS SUPERVISOR [facility] MCV 101(H) 78 - 100 fL 06/26/2024 3:23 PM SORT OPERATIONS SUPERVISOR [facility] MCH 32.9 26.5 - 33.0 pg 06/26/2024 3:23 PM SORT OPERATIONS SUPERVISOR [facility] MCHC 32.6 31.5 - 36.5 g/dL 06/26/2024 3:23 PM SORT OPERATIONS SUPERVISOR [facility] RDW 19.5(H) 10.0 - 15.0 % 06/26/2024 3:23 PM SORT OPERATIONS SUPERVISOR [facility] Platelet Count 505(H) 150 - 450 10e3/uL 06/26/2024 3:23 PM SORT OPERATIONS SUPERVISOR [facility] % Neutrophils 69 % 06/26/2024 3:23 PM SORT OPERATIONS SUPERVISOR [facility] % Lymphocytes 20 % 06/26/2024 3:23 PM SORT OPERATIONS SUPERVISOR [facility] % Monocytes 9 % 06/26/2024 3:23 PM SORT OPERATIONS SUPERVISOR [facility] % Eosinophils 1 % 06/26/2024 3:23 PM SORT OPERATIONS SUPERVISOR [facility] % Basophils 1 % 06/26/2024 3:23 PM SORT OPERATIONS SUPERVISOR [facility] % Immature Granulocytes 1 % 06/26/2024 3:23 PM SORT OPERATIONS SUPERVISOR [facility] NRBCs per 100 WBC 1(H) <1 /100 025 3:23 PM SORT OPERATIONS SUPERVISOR [facility] Absolute Neutrophils 8.4(H) 1.6 - 8.3 10e3/uL 06/26/2024 3:23 PM SORT OPERATIONS SUPERVISOR [facility] Absolute Lymphocytes 2.4 0.8 - 5.3 10e3/uL 06/26/2024 3:23 PM SORT OPERATIONS SUPERVISOR [facility] Absolute Monocytes 1.1 0.0 - 1.3 10e3/uL 06/26/2024 3:23 PM SORT OPERATIONS SUPERVISOR [facility] Absolute Eosinophils 0.1 0.0 - 0.7 10e3/uL 06/26/2024 3:23 PM SORT OPERATIONS SUPERVISOR [facility] Absolute Basophils 0.2 0.0 - 0.2 10e3/uL 06/26/2024 3:23 PM SORT OPERATIONS SUPERVISOR [facility] Absolute Immature Granulocytes 0.1 <=0.4 10e3/uL 06/26/2024 3:23 PM SORT OPERATIONS SUPERVISOR [facility] Absolute NRBCs 0.1 10e3/uL 06/26/2024 3:23 PM SORT OPERATIONS SUPERVISOR [facility] Blood BLOOD SPECIMEN / Unknown Venipuncture / Unknown 06/26/2024 2:42 PM SORT OPERATIONS SUPERVISOR 06/26/2024 2:52 PM SORT OPERATIONS SUPERVISOR us Jayden Adhikari MD LAB - BLOOD ORDERABLES Final Result [facility] [place] [facility] [address] [facility], [address] [place] [phone], [facility] * Troponin T, High Sensitivity (06/26/2024 2:42 PM SORT OPERATIONS SUPERVISOR) [facility] Troponin T, High Sensitivity <6 <=14 ng/L 06/26/2024 3:24 PM SORT OPERATIONS SUPERVISOR [facility] Comment: Either a High Sensitivity [...] Unknown Venipuncture / Unknown 06/26/2024 2:42 PM SORT OPERATIONS SUPERVISOR 06/26/2024 2:52 PM SORT OPERATIONS SUPERVISOR Jayden Adhikari MD LAB - BLOOD ORDERABLES Final Result [facility] Core Lab [address] [facility], [address] [place] [phone] [[email or web address]] * (ABNORMAL) D dimer quantitative (06/26/2024 2:42 PM SORT OPERATIONS SUPERVISOR) [facility] D-Dimer Quantitative 0.69(H) 0.00 - 0.50 ug/mL FEU 06/26/2024 3:13 PM SORT OPERATIONS SUPERVISOR [facility] Blood BLOOD SPECIMEN / Unknown Venipuncture / Unknown 06/26/2024 2:42 PM SORT OPERATIONS SUPERVISOR 06/26/2024 2:52 PM SORT OPERATIONS SUPERVISOR Narrative [facility] - 06/26/2024 3:13 PM SORT OPERATIONS SUPERVISOR This D-dimer assay is intended for use in conjunction with a clinical pretest probability assessment model to exclude pulmonary embolism (PE) and deep venous thrombosis (DVT) in outpatients suspected of PE or DVT. The cut-off value is 0.50 ug/mL FEU. Jayden Adhikari MD LAB - BLOOD ORDERABLES Final Result [facility] [address] [facility], [address] * HCG qualitative (blood) (06/26/2024 2:42 PM SORT OPERATIONS SUPERVISOR) Pathologist [facility] hCG Serum Qualitative Negative Negative JARET 06/26/2024 3:04 PM SORT OPERATIONS SUPERVISOR [facility] Comment:This test is for scr eening purposes. Results should be interpreted along with the clinical picture. Confirmation testing is available if warranted by ordering [id number], HCG Quantitative . Blood BLOOD SPECIMEN / Unknown Venipuncture / Unknown 06/26/2024 2:42 PM SORT OPERATIONS SUPERVISOR 06/26/2024 2:50 PM SORT OPERATIONS SUPERVISOR Jayden Adhikari MD LAB - BLOOD ORDERABLES Final Result Performing Organization Address [facility] de Phone Number [facility] [address] [facility], [address] * (ABNORMAL) Basic metabolic panel (06/26/2024 2:42 PM SORT OPERATIONS SUPERVISOR) [facility] Sodium 140 135 - 145 mmol/L 06/26/2024 3:24 PM SORT OPERATIONS SUPERVISOR [facility] Potassium 4.3 3.4 - 5.3 mmol/L 06/26/2024 3:24 PM SORT OPERATIONS SUPERVISOR [facility] Chloride 109(H) 98 - 107 mmol/L 06/26/2024 3:24 PM SORT OPERATIONS SUPERVISOR [facility] Carbon Dioxide (CO2) 20(L) 22 - 29 mmol/L 06/26/2024 3:24 PM SORT OPERATIONS SUPERVISOR [facility] Anion Gap 11 7 - 15 mmol/L 06/26/2024 3:24 PM SORT OPERATIONS SUPERVISOR [facility] Urea Nitrogen 6.7 6.0 - 20.0 mg/dL 06/26/2024 3:24 PM SORT OPERATIONS SUPERVISOR [facility] Creatinine 0.66 0.51 - 0.95 mg/dL 06/26/2024 3:24 PM SORT OPERATIONS SUPERVISOR [facility] GFR Estimate >90 >60 mL/min/1.7 3m2 06/26/2024 3:24 PM SORT OPERATIONS SUPERVISOR [facility] Comment:eGFR calculated usin g 2021 CKD-EPI equation. Calcium 9.0 8.8 - 10.4 mg/dL 06/26/2024 3:24 PM SORT OPERATIONS SUPERVISOR [facility] Glucose 94 70 - 99 mg/dL 06/26/2024 3:24 PM SORT OPERATIONS SUPERVISOR [facility] Blood BLOOD SPECIMEN / Unknown Venipuncture / Unknown 06/26/2024 2:42 PM SORT OPERATIONS SUPERVISOR 06/26/2024 2:52 PM SORT OPERATIONS SUPERVISOR Jayden Adhikari MD LAB - BLOOD ORDERABLES Final Result [facility] [address] [facility], [address] [place] [phone] [[email or web address]] documented in this encounter Visit Diagnoses Diagnosis [...] DVT-PE TreatmentIndications:DVT-PE Treatment $Given 06/29/2024 7:56 AM SORT OPERATIONS SUPERVISOR 10 mg $Given 06/28/2024 8:15 PM SORT OPERATIONS SUPERVISOR 10 mg $Given 06/28/2024 8:14 AM SORT OPERATIONS SUPERVISOR 10 mg apixaban ANTICOAGULANT (ELIQUIS) tablet 5 [...] For 1 dose $Given 06/26/2024 2:36 PM SORT OPERATIONS SUPERVISOR 25 mg diphenhydrAMINE (BENADRYL) capsule 25 mg 25 mg, Oral, EVERY 6 HOURS PRN, itching, Starting on Wed06/26/24 at 1837 $Given 06/26/2024 7:20 PM SORT OPERATIONS SUPERVISOR 25 mg diphenhydrAMINE (BENADRYL) injection 25 mg 25 mg, Intravenous, EVERY 6 HOURS PRN, itching, Starting on Wed06/26/24 at 1837 $Given 06/29/2024 6:00 AM SORT OPERATIONS SUPERVISOR 25 m g $Given 06/28/2024 10:07 PM SORT OPERATIONS SUPERVISOR 25 mg $Given 06/28/2024 4:09 PM SORT OPERATIONS SUPERVISOR 25 mg FLUoxetine (PROzac) capsule 10 mg 10 mg, Oral, DAILY, First dose on Wed06/27/24 at 0800 $Given 06/29/2024 7:56 AM SORT OPERATIONS SUPERVISOR 10 mg $Given 06/28/2024 8:14 AM SORT OPERATIONS SUPERVISOR 10 mg $Given 06/27/2024 8:28 AM SORT OPERATIONS SUPERVISOR 10 mg heparin - BOLUS DOSE from [...] re-enter medication order. $Given 06/27/2024 12:06 AM SORT OPERATIONS SUPERVISOR 1,550 Units heparin - BOLUS DOSE from [...] re-enter medication order. $Given 06/27/2024 1:34 PM SORT OPERATIONS SUPERVISOR 1,550 Units heparin 25,000 units in 0.45% [...] Xa 0.3-0.7) $New Bag 06/28/2024 7:51 AM SORT OPERATIONS SUPERVISOR 1,200 Units/hr 12 mL/hr Rate/Dose Verify 06/28/2024 3:17 AM SORT OPERATIONS SUPERVISOR 1,200 Units/hr 12 mL/hr Rate/Dose Verify 06/27/2024 8:21 PM SORT OPERATIONS SUPERVISOR 1,200 Units/hr 12 mL/hr heparin ANTICOAGULANT Loading [...] re-enter medication order. $Given 06/26/2024 4:50 PM SORT OPERATIONS SUPERVISOR 4,100 Units heparin lock flush 100 unit/mL [...] each port lumen $Given 06/29/2024 10:31 AM SORT OPERATIONS SUPERVISOR 5 mLs hydromorphone (DILAUDID) injection 2 mg 2 mg, Intravenous, EVERY 1 HOUR PRN, severe pain, Starting on Wed06/26/24 at 1429, For 3 doses $Given 06/26/2024 4:34 PM SORT OPERATIONS SUPERVISOR 2 mg $Given 06/26/2024 3:34 PM SORT OPERATIONS SUPERVISOR 2 mg $Given 06/26/2024 2:40 PM SORT OPERATIONS SUPERVISOR 2 mg hydromorphone (DILAUDID) injection 2 mg 2 mg, Intravenous, EVERY 2 HOURS PRN, moderate pain, severe pain, Starting on Wed06/26/24 at 1837 $Given 06/26/2024 9:48 PM SORT OPERATIONS SUPERVISOR 2 mg $Given 06/26/2024 7:20 PM SORT OPERATIONS SUPERVISOR 2 mg hydromorphone (DILAUDID) injection 2 mg 2 mg, Intravenous, EVERY 2 HOURS, First dose (after last modification) on Wed06/27/24 at 0000, Hold for excess sedation or RR < 8 / min and inform MD. $Given 06/29/2024 10:06 AM SORT OPERATIONS SUPERVISOR 2 mg $Given 06/29/2024 8:00 AM SORT OPERATIONS SUPERVISOR 2 mg $Given 06/29/2024 6:00 AM SORT OPERATIONS SUPERVISOR 2 mg hydroxyurea (HYDREA) capsule 1,000 mg 1,000 mg, Oral, 2 TIMES DAILY, First dose on Wed06/26/24 at 2000, Indications: sickle cell, Do not crush May require hepatic and/or renal dose or frequency adjustments. See reference link for guidelines.Indications:sickle cell $Given 06/29/2024 7:56 AM SORT OPERATIONS SUPERVISOR 1,000 mg $Given 06/28/2024 8:10 PM SORT OPERATIONS SUPERVISOR 1,000 mg $Given 06/28/2024 8:18 AM SORT OPERATIONS SUPERVISOR 1,000 mg hydrOXYzine HCl (ATARAX) tablet 25 [...] contact the provider. $Given 06/28/2024 4:09 PM SORT OPERATIONS SUPERVISOR 25 mg $Given 06/27/2024 8:19 AM SORT OPERATIONS SUPERVISOR 25 mg $Given 06/27/2024 3:14 AM SORT OPERATIONS SUPERVISOR 25 mg hydrOXYzine HCl (ATARAX) tablet 50 [...] For 1 dose $Given 06/26/2024 3:53 PM SORT OPERATIONS SUPERVISOR 55 mLs lactated ringers BOLUS 1,000 mL Intravenous, 1,000 mL, ONCE, at 500 mL/hr, Administer over 2 Hours, On Wed06/26/24 at 1435, For 1 dose $New Bag 06/26/2024 2:40 PM SORT OPERATIONS SUPERVISOR 1,000 mLs 500 mL/hr Lidocaine (LIDOCARE) 4 [...] Liquid not required. $Given 06/28/2024 8:14 AM SORT OPERATIONS SUPERVISOR 4 mg $Given 06/28/2024 2:02 AM S[employer] OPERATIONS SUPERVISOR 4 mg $Given 06/27/2024 8:19 PM [employer] OPER[employer] SUPERVISOR 4 mg ondansetron (ZOFRAN) injection 4 mg [...] IV dormant line $Given 06/29/2024 10:06 AM S[employer] OPERATIONS SUPERVISOR 3 mLs $Given 06/29/2024 4:00 AM [employer] OPERATIONS SUPERVISOR 3 mLs $Given 06/28/2024 6:05 PM S[employer] OPER[employer] SUPERVISOR 3 mLs sodium chloride (PF) 0.9% PF flush 82 mL 82 mL, Intravenous, ONCE, On Wed06/26/24 at 1540, For 1 dose $Given 06/26/2024 3:53 PM [employer] OPER[employer] SUPERVISOR 82 mLs documented in this encounter Active and Recently Administered Medications Times are shown in S[employer] OPER[employer] SUPERVISOR. Scheduled Medication Order 06/27/2024 06/28/2024 06/29/2024 apixaban [...] XA result- 0.30, in target range so development writer is NOT adjusting. ordered next lab [...] statement))0819 ($Given - Provider: Sathish Goetz RN) 1602 ($Given - Provider: Tika Osborn RN) hydrOXYzine [...] Out COVID-19 06/27/2024 06/27/2024 06/27/2024 10:03 AM S[employer] OPERATIONS SUPERVISOR documented as of this encounter Care Teams Cut Filer Relationship Specialty Start Date End Date Veronica Joseph MD [address] [place] [address] PCP - General Family Medicine 06/18/24 Mor Ramsey Medical Student 04/03/24 Case Samuel MD [address] [place] [address], [address] [place], [place] [address] Assigned Pediatric Specialist Provider 05/18/24 Juhi Benson, RN Specialty Remodeler Hematology & Oncology 05/29/24 documented as of this encounter
--- OUTSIDE RECORDS SUMMARY | 2024-07-03 21:32 | XMS_ITS | Encounter Summary ---
Author Organization [place] Address [address] [place] [address]. [place] [address] Care Team Providers Care Beater Machine Operator Name Role Phone No Ref-Primary, Physician Primary Care Provider Mor Ramsey Unavailable Unavailable Case Samuel MD Unavailable [phone] Juhi Benson RN Unavailable Unavailable Encounter Details [...] on file Legal Sex Female 8:25 AM DICTATING TRANSCRIBING MACHINE SERVICER Gender Identity Not on file Sexual Orientation Not on file documented as of this encounter Plan of Treatment Upcoming Encounters Date Type Department Care Team (Late st Contact Info) Description 07/04/2024 9:00 AM CDT Lab [facility] Cancer [address] [phone] Case Samuel MD [address] [place], [place] [address], ROOM [address] [id number] 07/06/2024 8:00 AM CDT Appointment [facility] Advanced Treatment [address] [phone] Case Samuel MD [address] [place], [place] [address], RO[address] [id number] 07/10/2024 11:30 AM CDT Oncology Visit [facility] Cancer [address] [phone] Case Samuel MD [address] [place], [place] [address], RO[address] [id number] documented as of this encounter Goals Goal Patient Goal Type Associated Problems Recent Progress Patient-Stated? Author Pain Management General On track( 025 12:40 PM DICTATING TRANSCRIBING MACHINE SERVICER) Yes Juhi Benson, RN Note: Goal Statement: [...] on filedocumented in this encounter Care Teams Beater Machine Operator Relationship Specialty Start Date End Date No Ref-Primary, Physician PCP - General 03/15/24 06/17/24 Mor Ramsey Medical Student 04/03/24 Case Samuel MD [address] [place] [address], [address] [place] [address] Assigned Pediatric Specialist Provider 05/18/24 Juhi Benson, RN Specialty Development Coordinator Hematology & Oncology 05/29/24 documented as of this encounter
--- OUTSIDE RECORDS SUMMARY | 2024-07-03 21:32 | XMS_ITS | Encounter Summary ---
Author Organization [place] Address [address] [place] [address]. 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 Gender Identity Not on file Sexual Orientation Not on file documented as of this encounter Plan of Treatment Upcoming Encounters Date Type Department Care Team (Late st Contact Info) Description 07/04/2024 9:00 AM CDT Lab [facility] Cancer [address] [phone] Case Samuel MD [address] [place], [place] [address], ROOM [address] [id number] 07/06/2024 8:00 AM CDT Appointment [facility] Advanced Treatment [address] [phone] Case Samuel MD [address] [place], [place] [address], RO[address] [id number] 07/10/2024 11:30 AM CDT Oncology Visit [facility] Cancer [address] [phone] Case Samuel MD [address] [place], [place] [address], RO[address] [id number] documented as of this encounter Goals Goal Patient Goal Type Associated Problems Recent Progress Patient-Stated? Author Pain Management General On track( 025 12:40 PM TELEPHONE QUOTATION CLERK) Yes Juhi Benson, RN Note: Goal [...] on filedocumented in this encounter Care Teams Enterprise Application Architect Relationship Specialty Start Date End Date No Ref-Primary, Physician PCP - General 03/15/24 06/17/24 Mor Ramsey Medical Student 04/03/24 Case Samuel MD [address] [place] [address], [address] [place] [address] Assigned Pediatric Specialist Provider 05/18/24 Juhi Benson, RN Specialty Identification Technician Hematology & Oncology 05/29/24 documented as of this encounter
--- OUTSIDE RECORDS SUMMARY | 2024-07-03 21:32 | XMS_ITS | Encounter Summary ---
Author Organization [place] Address [address] [place] [address] Care Team Providers Care Production Line Solderer Name Role Phone No Ref-Primary, Physician Primary Care Provider Mor Ramsey Unavailable Unavailable Case Samuel MD Unavailable [phone] Juhi Benson RN Unavailable Unavailable Reason for Visit * Reason Comments Blood Transfusion 1 unit blood Infusion Fluids and pain medi cations Encounter Details Date Type Department Care Team (Late st Contact Info) Description 05/30/2024 8:00 AM CORNER CUTTER MACHINE OPERATOR Infusion Therapy Visit [facility] Advanced Treatment [facility] [address] [place] [address] Case Samuel MD [address] [place] [address], [address] [place], [place] [address] 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); [...] on file Legal Sex Female 8:25 AM CORNER CUTTER MACHINE OPERATOR Gender Identity Not on file Sexual Orientation Not on file documented as of this encounter Last Filed Vital Signs Vital Sign Reading Time Taken Comments Blood Pressure 109/72 05/30/2024 11:15 AM CORNER CUTTER MACHINE OPERATOR Pulse 77 05/30/2024 11:15 AM CORNER CUTTER MACHINE OPERATOR Temperature 36.5 C (97.7 F) 05/30/2024 10:21 AM CORNER CUTTER MACHINE OPERATOR Respiratory Rate 16 05/30/2024 10:21 AM CORNER CUTTER MACHINE OPERATOR Oxygen Saturation 95% 05/30/2024 10:21 AM CORNER CUTTER MACHINE OPERATOR Inhaled Oxygen Concentration - - Weight - - Height - - Body Mass Index - - documented in this encounter Patient Instructions * Patient Instructions* Arlene Moses RN - 05/30/2024 8:00 AM CORNER CUTTER MACHINE OPERATOR Dear Gianna Hernández Thank you for choosing [facility] ([facility]) for your transfusion. The following information is a summary of our appointment as well as important reminders. If you have any questions on your upcoming Specialty Infusion appointments, please call scheduling at [phone]. It was a pleasure taking care of you today. Sincerely, [facility] [address] [place] [address] ER CUTTER MACHINE OPERATOR * Attachments The following attachments cannot be sent through Care Everywhere. * Blood Transfusions: General Info (Lithuanian) documented in this encounter Progress Notes * Arlene Moses RN - 05/30/2024 8:00 AM CST Blood Product Transfusion Nursing Note: Gianna Hernández presents today to [facility] for a blood transfusion. During today's [facility] appointment orders from Dr Samuel were completed. Progress note: ID verified by name and . Assessment completed. Vitals were stable throughout time in [facility]. Verbal education given to patient/graphic art sales representative regarding transfusion and possible side effects. Patient/graphic art sales representative verbalized understanding. Patent Examiner present during visit today: Not Applicable. All [...] Discharge instructions were reviewed with patient Yes Patient/graphic art sales representative verbalized understanding of discharge instructions [...] By Arlene Moses RN Alyssa Sakhitab-Kerestes, RN ER CUTTER MACHINE OPERATOR documented in this encounter Plan of Treatment Upcoming Encounters Date Type Department Care Team (Late st Contact Info) Description 07/04/2024 9:00 AM CDT Lab [facility] [address] [place] [address] Case Samuel MD [address] [place] [address], [address] [place], [place] [address] 07/06/2024 8:00 AM CDT Appointment [facility] [address] [phone] Case Samuel MD [address] [facility] 484, [address] [place], [place] [address] 07/10/2024 11:30 AM CDT Oncology Visit [facility] [address] [place] [phone] Case Samuel MD [address] [facility] 484, [address] [place] [address] documented as of this encounter Goals Goal Patient Goal Type Associated Problems Recent Progress Patient-Stated? 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) History of transfusion PREPARE RED BLOOD CELLS (UNIT) Routine 05/29/2024 5:12 PM CORNER CUTTER MACHINE OPERATOR documented in this encounter Results * Transfuse red blood cells (unit), Sickle Cell (Hgb S) Negative (05/30/2024 10:24 AM CORNER CUTTER MACHINE OPERATOR) us Case Samuel MD BLOOD TRANSFUSION ORDERAB LES Final Result * Transfuse red blood cells (unit), 1 Units, Sickle Cell (Hgb S) Negative (05/30/2024 10:24 AM CORNER CUTTER MACHINE OPERATOR) Case Samuel MD BLOOD TRANSFUSION ORDERAB LES Final Result * Prepare red blood cells (unit) (05/29/2024 5:12 PM CORNER CUTTER MACHINE OPERATOR) Blood Component Type Red Blood Cells [facility] BLOOD BANK Product Code C2959Q25 [facility] BLOO D BANK Unit Status Transfused [facility] BLOO D BANK Unit Number [id number] [facility] B LOOD BANK CROSSMATCH COMPATIBLE [facility] BLOOD BANK CODING SYSTEM [id number] [facility] BLO OD BANK ISSUE DATE AND TIME [id number] [facility] BLOOD BANK UNIT ABO/RH A- [facility] BLOOD BANK UNIT TYPE ISBT 0600 [facility] BL OOD BANK 05/29/2024 5:12 PM CORNER CUTTER MACHINE OPERATOR Case Samuel MD BLOOD BANK PRODUCT ORDERA BLES Final Result [facility]LOOD [facility]ANK [address] [place] [address] documented in this encounter [...] (H),History of transfusion $Given 05/30/2024 11:18 AM CORNER CUTTER MACHINE OPERATOR 5 mLs HYDROmorphone (DILAUDID) injection 2 mg 2 mg, Intravenous, EVERY 1 HOUR PRN, severe pain, moderate pain, Starting on Wed05/30/24 at 0833, For 3 dosesIndications:Sickle cell pain crisis (H) $Given 05/30/2024 10:56 AM CORNER CUTTER MACHINE OPERATOR 2 mg $Given 05/30/2024 9:44 AM CORNER CUTTER MACHINE OPERATOR 2 mg $Given 05/30/2024 8:39 AM CORNER CUTTER MACHINE OPERATOR 2 mg lactated ringers BOLUS 1,000 mL Intravenous, 1,000 mL, ONCE, at 500 mL/hr, Administer over 2 Hours, On Wed05/30/24 at 0845, For 1 doseIndications:Sickle cell pain crisis (H) $New Bag 05/30/2024 10:24 AM CORNER CUTTER MACHINE OPERATOR 500 mLs 500 mL/hr sodium chloride (PF) [...] (H),History of transfusion $Given 05/30/2024 11:18 AM CORNER CUTTER MACHINE OPERATOR 20 mLs $Given 05/30/2024 10:20 AM CORNER CUTTER MACHINE OPERATOR 20 mLs documented in this encounter Care Teams Production Line Solderer Relationship Specialty Start Date End Date No Ref-Primary, Physician PCP - General 03/15/24 06/17/24 Mor Ramsey Medical Student 04/03/24 Case Samuel MD [address] [place] [address], [address] [place] [address] Assigned Pediatric Specialist Provider 05/18/24 Juhi Benson, RN Specialty Acquisitions Logistics Analyst Hematology & Oncology 05/29/24 documented as of this encounter
--- OUTSIDE RECORDS SUMMARY | 2024-07-03 21:32 | XMS_ITS | Encounter Summary ---
Author Organization [place] Address [address] [place] [address]. [place] [address] Care Team Providers Care Petroleum Blending Plant Operator Name Role Phone No Ref-Primary, Physician Primary Care Provider Mor Ramsey Unavailable Unavailable Case Samuel MD Unavailable [phone] Juhi Benson RN Unavailable Unavailable Encounter Details [...] on file Legal Sex Female 8:25 AM CLEANING STAFF SUPERVISOR Gender Identity Not on file Sexual Orientation Not on file documented as of this encounter Plan of Treatment Upcoming Encounters Date Type Department Care Team (Late st Contact Info) Description 07/04/2024 9:00 AM CDT Lab [facility] Cancer [address] [phone] Case Samuel MD [address] [place], [place] [address], RO[address] [address] 07/06/2024 8:00 AM CDT Appointment [facility] Advanced Treatment [address] [phone] Case Samuel MD [address] [place], [place] [address], RO[address] [address] 07/10/2024 11:30 AM CDT Oncology Visit [facility] Cancer [address] [phone] Case Samuel MD [address] [place], [place] [address], RO[address] [address] documented as of this encounter Goals Goal Patient Goal Type Associated Problems Recent Progress Patient-Stated? Author Pain Management General On track( 025 12:40 PM CLEANING STAFF SUPERVISOR) Yes Juhi Benson, RN Note: Goal [...] on filedocumented in this encounter Care Teams Petroleum Blending Plant Operator Relationship Specialty Start Date End Date No Ref-Primary, Physician PCP - General 03/15/24 06/17/24 Mor Ramsey Medical Student 04/03/24 Case Samuel MD [address] [place] [address], [address] [place] [address] Assigned Pediatric Specialist Provider 05/18/24 Juhi Benson, RN Specialty Electronic Publishing Specialist Hematology & Oncology 05/29/24 documented as of this encounter
--- OUTSIDE RECORDS SUMMARY | 2024-07-03 21:33 | XMS_ITS | Encounter Summary ---
Author Organization [place] Address [address] [place] [address]. [place] [address] Care Team Providers Care Loan Servicing Representative Name Role Phone No Ref-Primary, Physician Primary Care Provider Mor Ramsey Unavailable Unavailable Case Samuel MD Unavailable [phone] Juhi Benson RN Unavailable Unavailable Reason for Visit * Reason Comments Infusion IVF + pain medicatio n Encounter Details Date Type Department Care Team (Late st Contact Info) Description 06/07/2024 1:30 PM EVENT PROMOTER Infusion Therapy Visit [facility] [address] [place] [address] Case Sameul MD [address] [place] [address] 484, [address] [place], [place] [address] Fever (Primary Dx); Sickle cell pain crisis [...] on file Legal Sex Female 8:25 AM EVENT PROMOTER Gender Identity Not on file Sexual Orientation Not on file documented as of this encounter Last Filed Vital Signs Vital Sign Reading Time Taken Comments Blood Pressure 119/76 06/07/2024 3:43 PM EVENT PROMOTER Pulse 72 06/07/2024 3:43 PM EVENT PROMOTER Temperature 37 C (98.6 F) 06/07/2024 1:35 PM EVENT PROMOTER Respiratory Rate 16 06/07/2024 1:35 PM EVENT PROMOTER Oxygen Saturation 99% 06/07/2024 3:43 PM EVENT PROMOTER Inhaled Oxygen Concentration - - Weight - - Height - - Body Mass Index - - documented in this encounter Patient Instructions * Patient Instructions* Tyson Hess RN - 06/07/2024 1:30 PM EVENT PROMOTER Dear Gianna Hernández Thank you for choosing [facility] ([facility]) for your infusion. The following information is a summary of our appointment as well as important reminders. If you have any questions on your upcoming Specialty Infusion appointments, please call scheduling at [phone]. It was a pleasure taking care of you today. Sincerely, [facility] [address] [place] [address] T PROMOTER documented in this encounter Progress Notes * Tyson Hess RN - 06/07/2024 1:30 PM CST Infusion Nursing Note: Gianna Hernández presents today for IV infusion; IVF + pain medication. Patient seen by provider today: No Linoleum Layer present during visit today: Not Applicable. Note: [...] self. Departure Mode: Ambulatory. Tyson Hess RN T PROMOTER documented in this encounter Plan of Treatment Upcoming Encounters Date Type Department Care Team (Late st Contact Info) Description 07/04/2024 9:00 AM CDT [facility] [address] [place] [address] Case Samuel MD [address] [place] [address], [address] [place] [address] 07/06/2024 8:00 AM CDT Appointment [facility] [place] [address] [place] [phone] Case Samuel MD [address] [facility] 484, [address] [place], [place] [address] 07/10/2024 11:30 AM CDT [facility] [address] [place] [address] Case Samuel MD [address] [facility] 484, [address] [place], [place] [address] documented as of this encounter Goals Goal Patient Goal Type Associated Problems Recent Progress Patient-Stated? Author Pain Management General On track( 025 12:40 PM EVENT PROMOTER) Yes Juhi Benson, RN Note: Goal Statement: [...] AND PLATELET MORPHOLOGY Routine 06/07/2024 1:15 PM EVENT PROMOTER Sickle cell pain crisis (H) CBC WITH PLATELETS AND DIFFERENTIAL Routine 06/07/2024 1:15 PM EVENT PROMOTER Sickle cell pain crisis (H) INFLUENZA A/B, RSV AND SARS-COV2 PCR Routine 06/07/2024 1:15 PM EVENT PROMOTER Fever CBC WITH PLATELETS & DIFFERENTIAL Routine 06/07/2024 1:15 PM EVENT PROMOTER Sickle cell pain crisis (H) BASIC METABOLIC PANEL Routine 06/07/2024 1:15 PM EVENT PROMOTER Sickle cell pain crisis (H) documented in this encounter Results * (ABNORMAL) RBC and Platelet Morphology (06/07/2024 1:15 PM EVENT PROMOTER) Pathologist [facility] RBC Morphology Confirmed RBC Indices 06/07/2024 2:06 PM EVENT PROMOTER [facility]ORE LAB Platelet Assessment Automated Count Confirmed. Platelet morphology is normal. Automated Count Confirmed. Platelet morphology is normal. 06/07/2024 2:06 PM EVENT PROMOTER [facility] - CORE LAB [place] Bodies Present(A) None Seen 06/07/2024 2:06 PM EVENT PROMOTER [facility] - CORE LAB Polychromasia Slight(A) None Seen 06/07/2024 2:06 PM EVENT PROMOTER [facility] - CORE LAB Sickle Cells Moderate(A) None Seen 06/07/2024 2:06 PM EVENT PROMOTER [facility] CORE LAB Target Cells Slight(A) None Seen 06/07/2024 2:06 PM EVENT PROMOTER [facility] CORE LAB Teardrop Cells Slight(A) None Seen 06/07/2024 2:06 PM EVENT PROMOTER [facility] CORE LAB Blood BLOOD SPECIMEN / Unknown IVAD (Port) / Unknown 06/07/2024 1:15 PM EVENT PROMOTER 06/07/2024 1:35 PM EVENT PROMOTER us Case Samuel MD LAB - BLOOD ORDERABLES Fi nal Result [facility] CORE LAB [facility] [place] [address] [facility] 1st [place] [address] * Influenza A/B, RSV and SARS-CoV2 PCR (COVID-19) Nasopharyngeal (06/07/2024 1:15 PM EVENT PROMOTER) Pathologist [facility] Influenza A PCR Negative Negative 06/07/2024 3:32 PM EVENT PROMOTER [facility] Influenza B PCR Negative Negative 06/07/2024 3:32 PM EVENT PROMOTER [facility] RSV PCR Negative Negative 06/07/2024 3:32 PM EVENT PROMOTER [facility] SARS CoV2 PCR Negative Negative 06/07/2024 3:32 PM EVENT PROMOTER [facility] Comment:NEGATIVE: SARS-CoV-2 (COVID-19) RNA not detected, presumed negative. Swab NASOPHARYNGEAL STRUCTURE / Unknown Non-blood Collection / Unknown 06/07/2024 1:15 PM EVENT PROMOTER 06/07/2024 1:36 PM EVENT PROMOTER Narrative [facility] - 06/07/2024 3:32 PM EVENT PROMOTER Testing was performed using the Xpert Xpress CoV2/Flu/RSV Assay on the [employer]financ[employer]Xpert Instrument. This test should be ordered for [...] management. This test was validated by the [facility]. These laboratories are certified under the Clinical Laboratory Improvement Amendments of 1988 (CLIA-88) as qualified to perfom high complexity laboratory testing. Case Samuel MD LAB - MICRO GENERAL ORDER SYD Final Result [facility] Inf. Diseases Diag. Lab [address] [facility], [address] [place] [address], [facility] * (ABNORMAL) CBC with platelets and differential (06/07/2024 1:15 PM EVENT PROMOTER) [facility] WBC Count 13.7(H) 4.0 - 11.0 10e3/uL 06/07/2024 2:06 PM EVENT PROMOTER [facility] RBC Count 2.80(L) 3.80 - 5.20 10e6/uL 06/07/2024 2:06 PM [facility] LAB Hemoglobin 8.8(L) 11.7 - 15.7 g/dL 06/07/2024 2:06 PM [facility] Hematocrit 25.3(L) 35.0 - 47.0 % 06/07/2024 2:06 PM [facility] MCV 90 78 - 100 fL 06/07/2024 2:06 PM [facility] MCH 31.4 26.5 - 33.0 pg 06/07/2024 2:06 PM [facility] MCHC 34.8 31.5 - 36.5 g/dL 06/07/2024 2:06 PM [facility] RDW 19.4(H) 10.0 - 15.0 % 06/07/2024 2:06 PM [facility] Platelet Count 516(H) 150 - 450 10e3/uL 06/07/2024 2:06 PM [facility] % Neutrophils 67 % 06/07/2024 2:06 PM [facility] % Lymphocytes 20 % 06/07/2024 2:06 PM [facility] % Monocytes 11 % 06/07/2024 2:06 PM [facility] % Eosinophils 1 % 06/07/2024 2:06 PM [facility] % Basophils 1 % 06/07/2024 2:06 PM [facility] % Immature Granulocytes 0 % 06/07/2024 2:06 PM [facility] NRBCs per 100 WBC 1(H) <1 /100 025 2:06 PM [facility] Absolute Neutrophils 9.2(H) 1.6 - 8.3 10e3/uL 06/07/2024 2:06 PM [facility] Absolute Lymphocytes 2.7 0.8 - 5.3 10e3/uL 06/07/2024 2:06 PM [facility] Absolute Monocytes 1.5(H) 0.0 - 1.3 10e3/uL 06/07/2024 2:06 PM [facility] Absolute Eosinophils 0.1 0.0 - 0.7 10e3/uL 06/07/2024 2:06 PM EVENT PROMOTER [facility] Absolute Basophils 0.2 0.0 - 0.2 10e3/uL 06/07/2024 2:06 PM EVENT PROMOTER [facility] Absolute Immature Granulocytes 0.1 <=0.4 10e3/uL 06/07/2024 2:06 PM EVENT PROMOTER [facility] Absolute NRBCs 0.1 10e3/uL 06/07/2024 2:06 PM [facility] Blood BLOOD SPECIMEN / Unknown IVAD (Port) / Unknown 06/07/2024 1:15 PM EVENT PROMOTER 06/07/2024 1:35 PM EVENT PROMOTER us Case Samuel MD LAB - BLOOD ORDERABLES Fi nal Result [facility] [place] [address] [facility] 1st [place] [address] * (ABNORMAL) Basic metabolic panel (06/07/2024 1:15 PM EVENT PROMOTER) Sodium 139 135 - 145 mmol/L 06/07/2024 2:11 PM [facility] Potassium 4.4 3.4 - 5.3 mmol/L 06/07/2024 2:11 PM [facility] Chloride 109(H) 98 - 107 mmol/L 06/07/2024 2:11 PM [facility] Carbon Dioxide (CO2) 22 22 - 29 mmol/L 06/07/2024 2:11 PM [facility] Anion Gap 8 7 - 15 mmol/L 06/07/2024 2:11 PM [facility] Urea Nitrogen 7.4 6.0 - 20.0 mg/dL 06/07/2024 2:11 PM [facility] Creatinine 0.66 0.51 - 0.95 mg/dL 06/07/2024 2:11 PM [facility] GFR Estimate >90 >60 mL/min/1.7 3m2 06/07/2024 2:11 PM [facility] Comment:eGFR calculated usin 2020 CKD-EPI equation. Calcium 9.3 8.8 - 10.4 mg/dL 06/07/2024 2:11 PM EVENT PROMOTER [facility] Glucose 98 70 - 99 mg/dL 06/07/2024 2:11 PM EVENT PROMOTER [facility] Blood BLOOD SPECIMEN / Unknown IVAD (Port) / Unknown 06/07/2024 1:15 PM EVENT PROMOTER 06/07/2024 1:35 PM EVENT PROMOTER us Case Samuel MD LAB - BLOOD ORDERABLES Fi nal Result [facility] [place] [address] [facility] 1st [place] [address] documented in this encounter Visit Diagnoses Diagnosis [...] pain crisis (H) $Given 06/07/2024 3:41 PM EVENT PROMOTER 5 mLs HYDROmorphone (DILAUDID) injection 2 mg 2 mg, Intravenous, EVERY 1 HOUR PRN, severe pain, moderate pain, Starting on Wed06/07/24 at 1309, For 3 dosesIndications:Sickle cell pain crisis (H) $Given 06/07/2024 3:28 PM EVENT PROMOTER 2 mg $Given 06/07/2024 2:30 PM EVENT PROMOTER 2 mg $Given 06/07/2024 1:37 PM EVENT PROMOTER 2 mg lactated ringers BOLUS 1,000 mL Intravenous, 1,000 mL, ONCE, at 500 mL/hr, Administer over 2 Hours, On Wed06/07/24 at 1315, For 1 doseIndications:Sickle cell pain crisis (H) $New Bag 06/07/2024 1:37 PM EVENT PROMOTER 1,000 mLs 500 mL/hr documented in this encounter Additional Health Concerns Infection Onset Date Last Indicated Resolved Time Rule Out COVID-19 06/07/2024 06/07/2024 06/07/2024 3:32 PM EVENT PROMOTER documented as of this encounter Care Teams Loan Servicing Representative Relationship Specialty Start Date End Date No Ref-Primary, Physician PCP - General 03/15/24 06/17/24 Mor Ramsey Medical Student 04/03/24 Case Samuel MD [address] [place] [address] 484, [address] [place] [address] Assigned Pediatric Specialist Provider 05/18/24 Juhi Benson, RN Specialty Receptionist Scheduler Hematology & Oncology 05/29/24 documented as of this encounter
--- OUTSIDE RECORDS SUMMARY | 2024-07-03 21:33 | XMS_ITS | Encounter Summary ---
Author Organization [place] Address [address] [place] [address]. [place] [address] Care Team Providers Care Truck Operator Name Role Phone No Ref-Primary, Physician Primary Care Provider Mor Ramsey Unavailable Unavailable Case Samuel MD Unavailable [phone] Juhi Benson RN Unavailable Unavailable Encounter Details [...] file Legal Sex Female 8:25 AM RN TELEPHONIC Gender Identity Not on file Sexual Orientation Not on file documented as of this encounter Plan of Treatment Upcoming Encounters Date Type Department Care Team (Late st Contact Info) Description 07/04/2024 9:00 AM CDT Lab [facility] [address] [address] Case Samuel MD [address] [place], [place] [address], ROOM [address] [address] 07/06/2024 8:00 AM CDT Appointment [facility] Advanced Treatment [address] [phone] Case Samuel MD [address] [place] [address], RO[address] [address] 07/10/2024 11:30 AM CDT Oncology Visit [facility] [address] [address] Case Samuel MD [address] [place] [address], RO[address] [id number] documented as of this encounter Goals Goal Patient Goal Type Associated Problems Recent Progress Patient-Stated? Author Pain Management General On track( 025 12:40 PM RN TELEPHONIC) Yes Juhi Benson, RN Note: Goal Statement: [...] Out COVID-19 06/07/2024 06/07/2024 06/07/2024 12:50 PM RN TELEPHONIC Rule Out COVID-19 06/07/2024 06/07/2024 06/07/2024 3:32 PM RN TELEPHONIC documented as of this encounter Care Teams Truck Operator Relationship Specialty Start Date End Date No Ref-Primary, Physician PCP - General 03/15/24 06/17/24 Elvira Ramseyc Medical Student 04/03/24 Case Samuel MD [address] [place] [address] 484, [address] [place] [address] Assigned Pediatric Specialist Provider 05/18/24 Juhi Benson, RN Specialty Row Boss Hoeing Hematology & Oncology 05/29/24 documented as of this encounter
--- OUTSIDE RECORDS SUMMARY | 2024-07-03 21:33 | XMS_ITS | Encounter Summary ---
Author Organization [place] Address [address] [place] [address]. [place] [address] Care Team Providers Care Roving Hand Name Role Phone No Ref-Primary, Physician Primary Care Provider Mor Ramsey Unavailable Unavailable Case Samuel MD Unavailable [phone] Juhi Benson RN Unavailable Unavailable Encounter Details [...] file Legal Sex Female 8:25 AM RN INTERNAL MEDICINE Gender Identity Not on file Sexual Orientation Not on file documented as of this encounter Plan of Treatment Upcoming Encounters Date Type Department Care Team (Late st Contact Info) Description 07/04/2024 9:00 AM CDT Lab [facility] [address] [address] Case Samuel MD [address] [place], [place] [address], [address] [address] 07/06/2024 8:00 AM CDT Appointment [facility] Advanced Treatment [address] [phone] Case Samuel MD [address] [place], [place] [address], [address] [address] 07/10/2024 11:30 AM CDT Oncology Visit [facility] [address] [address] Case Samuel MD [address] [place], [place] [address], [address] [address] documented as of this encounter Goals Goal Patient Goal Type Associated Problems Recent Progress Patient-Stated? Author Pain Management General On track( 025 12:40 PM RN INTERNAL MEDICINE) Yes Juhi Benson, RN Note: Goal Statement: [...] on filedocumented in this encounter Care Teams Roving Hand Relationship Specialty Start Date End Date No Ref-Primary, Physician PCP - General 03/15/24 06/17/24 Mor Ramsey Medical Student 04/03/24 Case Samuel MD [address] [place] [address] 484, [address] [place] [address] Assigned Pediatric Specialist Provider 05/18/24 Juhi Benson, RN Specialty Therapeutic Sales Specialist Hematology & Oncology 05/29/24 documented as of this encounter
--- OUTSIDE RECORDS SUMMARY | 2024-07-03 21:33 | XMS_ITS | Encounter Summary ---
Author Organization [place] Address [address] [place] [id number] Care Team Providers Care Mva Operator Name Role Phone No Ref-Primary, Physician Primary Care Provider Mor Ramsey Unavailable Unavailable Case Samuel MD Unavailable [phone] Juhi Benson RN Unavailable Unavailable Reason for Visit * Reason Comments Sickle Cell Pain Crisis Encounter Details Date Type Department Care Team (Late st Contact Info) Description 06/06/2024 9:41 AM CUPOLA MELTING SUPERVISOR - 06/06/2024 1:29 PM [facility] Emergency [facility] Emergency Room [facility] [place] [address] Marilia Summers MD [address] [place] [phone] Sickle cell pain crisis (H) Discharge Disposition: [...] on file Legal Sex Female 8:25 AM CUPOLA MELTING SUPERVISOR Gender Identity Not on file Sexual Orientation Not on file documented as of this encounter Last Filed Vital Signs Vital Sign Reading Time Taken Comments Blood Pressure 122/82 06/06/2024 1:00 PM CUPOLA MELTING SUPERVISOR Pulse 77 06/06/2024 1:00 PM CUPOLA MELTING SUPERVISOR Temperature 36.9 C (98.5 F) 06/06/2024 9:33 AM CUPOLA MELTING SUPERVISOR Respiratory Rate 17 06/06/2024 9:33 AM CUPOLA MELTING SUPERVISOR Oxygen Saturation 98% 06/06/2024 1:00 PM CUPOLA MELTING SUPERVISOR Inhaled Oxygen Concentration - - Weight 52.2 kg (115 lb) 06/06/2024 9:33 AM CUPOLA MELTING SUPERVISOR Height 154.9 cm (5' 1) 06/06/2024 9:33 AM CUPOLA MELTING SUPERVISOR Body Mass Index 21.73 06/06/2024 9:33 AM CUPOLA MELTING SUPERVISOR documented in this encounter Discharge Instructions * Discharge Instructions* Marilia Summers MD - 06/06/2024 12:48 PM CUPOLA MELTING SUPERVISOR With the amount of hydromorphone that you [...] work on your care plan with your timekeeper supervisor to see if they would be agreeable to getting you an appointment with pain clinic even while you are waiting to start the plasmapheresis to work a bit more on a home pain regimen for you. Continue to follow your care plan discussed with your timekeeper supervisor to treat your sickle cell pain crisis. Your next dose of dilaudid should not be before 2:30 pm. LA MELTING SUPERVISOR LA MELTING SUPERVISOR * Attachments The following attachments cannot be sent through Care Everywhere. * Naloxone Nasal [place] (NALOXONE SPRAY - NASAL) (Irish) * Drug Overdose: Opioid (Irish) documented in this encounter Medications at Time [...] naloxone (NARCAN) 4 MG/0.1ML nasal spray [place] 1 spray (4 mg) into one nostril [...] WDL WDL Cognitive/Neuro/Behavioral WDL Cognitive/Neuro/Behavioral WDL WDL LA MELTING SUPERVISOR * Marilia Summers MD - 06/06/2024 9:34 [...] our physician who is working with her timekeeper supervisor for the care plan. Per the patient [...] plans and they will talk with her timekeeper supervisor about the request for the patient to [...] do now have a major issue. Our community youth secretary Hattie and our java security engineer Augusto just saw the patient to get into the driver service technician seat and drive away after being told specifically that she cannot drive and that she had told us that her significant other was driving in to pick herup. 1328 Our security did have her on video (as last pattern grader concerned she did not get into a [...] Prescriptions NALOXONE (NARCAN) 4 MG/0.1ML NASAL SPRAY [place] 1 spray (4 mg) into one nostril [...] has been evaluated multiple times since in [place] and although she has a remote history [...] than previous suspect she was slightly dehydrated. [facility] System Documentation Medical Decision Making [...] approved byMD Marilia Martinez MD Emergency Medicine [facility] EMERGENCY ROOM Marilia Summers MD 06/06/24 1254 Marilia Summers MD 06/06/24 1257 Marilia Summers MD 06/06/24 1330 LA MELTING SUPERVISOR LA MELTING SUPERVISOR LA MELTING SUPERVISOR documented in this encounter Plan of Treatment Upcoming Encounters Date Type Department Care Team (Late st Contact Info) Description 07/04/2024 9:00 AM CDT Lab [facility] [address] [place] [address] Case Samuel MD [address] [place] [address], [address] [place], [place] [address] 07/06/2024 8:00 AM CDT Appointment [facility] [place] [address] [place] [phone] Case Samuel MD [address] [facility] 484, [address] [place] [address] 07/10/2024 11:30 AM CDT [facility] [address] [place] [phone] Case Samuel MD [address] [facility] 484, [address] [place], [place] [address] documented as of this encounter Goals Goal Patient Goal Type Associated Problems Recent Progress Patient-Stated? Author Pain Management General On track( 025 12:40 PM CUPOLA MELTING SUPERVISOR) Yes Juhi Benson RN Note: Goal [...] For 1 dose $Given 06/06/2024 10:22 AM CUPOLA MELTING SUPERVISOR 50 mg heparin lock flush 10 [...] each port lumen $Given 06/06/2024 1:13 PM CUPOLA MELTING SUPERVISOR 5 mLs HYDROmorphone (DILAUDID) injection 2 mg 2 mg, Intravenous, EVERY 1 HOUR PRN, moderate pain, Starting on Wed06/06/24 at 0958, For 2 doses $Given 06/06/2024 11:31 AM CUPOLA MELTING SUPERVISOR 2 mg $Given 06/06/2024 10:22 AM CUPOLA MELTING SUPERVISOR 1 mg HYDROmorphone (DILAUDID) injection 2 mg 2 mg, Intravenous, ONCE, On Wed06/06/24 at 1300, For 1 dose $Given 06/06/2024 12:57 PM CUPOLA MELTING SUPERVISOR 2 mg lactated ringers BOLUS 1,000 mL Intravenous, 1,000 mL, ONCE, On Wed06/06/24 at 1000, For 1 dose $New Bag 06/06/2024 10:12 AM CUPOLA MELTING SUPERVISOR 1,000 mLs sodium chloride (PF) 0.9% PF [...] Recently Administered Medications Times are shown in CUPOLA MELTING SUPERVISOR. Scheduled Medication Order 06/04/2024 06/05/2024 06/06/2024 heparin [...] lumen documented in this encounter Care Teams Mva Operator Relationship Specialty Start Date End Date No Ref-Primary, Physician PCP - General 03/15/24 06/17/24 Mor Ramsey Medical Student 04/03/24 Case Samuel MD [address] [place] [address] 484, [address] [place] [address] Assigned Pediatric Specialist Provider 05/18/24 Juhi Benson, SOFIA Specialty Field Identification Specialist Hematology & Oncology 05/29/24 documented as of this encounter
--- OUTSIDE RECORDS SUMMARY | 2024-07-03 21:33 | XMS_ITS | Encounter Summary ---
Author Organization [place] Address [address] [place] [address]. [place] [address] Care Team Providers Care Molder Sweep Name Role Phone No Ref-Primary, Physician Primary Care Provider Mor Ramsey Unavailable Unavailable Case Samuel MD Unavailable [phone] Juhi Benson RN Unavailable Unavailable Reason for Visit * Reason Comments Infusion * Auth/Cert Specialty Diagnoses / Procedures Referred By Shahid t Referred To Contact EMERGENCY MEDICINE Diagnoses Acute chest pain Sickle cell pain crisis (H) [facility] Emergency Department [address] [place] [address] Phone: tel: Referral ID Status Reason Start Date Expiration Date Visits Re quested Visits Authorized [id number] 1 1 Encounter Details Date Type Department Care Team ([facility] st Contact Info) Description 06/09/2024 11:30 AM ADVANCED PRACTICE NURSE PSYCHOTHERAPIST Infusion Therapy Visit [facility] [address] [place] [address] Case Samuel MD [address] [facility] 484, [address] [place] [address] Sickle cell pain crisis (H) [...] file Legal Sex Female 8:25 AM ADVANCED PRACTICE NURSE PSYCHOTHERAPIST Gender Identity Not on file Sexual Orientation Not on file documented as of this encounter Last Filed Vital Signs Vital Sign Reading Time Taken Comments Blood Pressure 123/75 06/09/2024 11:45 AM ADVANCED PRACTICE NURSE PSYCHOTHERAPIST Pulse 87 06/09/2024 11:45 AM ADVANCED PRACTICE NURSE PSYCHOTHERAPIST Temperature 37 C (98.6 F) 06/09/2024 11:45 AM ADVANCED PRACTICE NURSE PSYCHOTHERAPIST Respiratory Rate 16 06/09/2024 11:45 AM ADVANCED PRACTICE NURSE PSYCHOTHERAPIST Oxygen Saturation 100% 06/09/2024 11:45 AM ADVANCED PRACTICE NURSE PSYCHOTHERAPIST Inhaled Oxygen Concentration - - Weight - - Height - - Body Mass Index - - documented in this encounter Progress Notes * Lynne Camacho, RN - 06/09/2024 11:30 AM CST Infusion Nursing Note: Gianna Hernández presents today for IV fluids + Dilaudid. Patient seen by provider today: No Supervisor Extruding Department present during visit today: Not Applicable. Note: Rating pain at an 8 out of 10 upon arrival. Has a bus driver. Intravenous Access: Implanted Port. Treatment Conditions: [...] all questions answered. AVS to patient via [employer]. Patient will return 06/13 for next appointment. Patient discharged in stable condition accompanied by: self and boyfriend. Departure Mode: Ambulatory. Lynne Camacho RN NCED PRACTICE NURSE PSYCHOTHERAPIST documented in this encounter Plan of Treatment Upcoming Encounters Date Type Department Care Team (Late st Contact Info) Description 07/04/2024 9:00 AM CDT Lab [facility] Cancer [address] [address] Case Samuel MD [address] [place] [address], ROOM [address] [address] 07/06/2024 8:00 AM CDT Appointment [facility] [address] [phone] Case Samuel MD [address] [place], [place] [address], [address] [place], [place] [address] 07/10/2024 11:30 AM CDT Oncology Visit [facility] [address] [phone] Case Samuel MD [address] [place], [place] [address], [address] [place] [address] documented as of this encounter Goals Goal Patient Goal Type Associated Problems Recent Progress Patient-Stated? Author Pain Management General On track( 025 12:40 PM ADVANCED PRACTICE NURSE PSYCHOTHERAPIST) Yes Juhi Benson, RN Note: Goal Statement: [...] pain crisis (H) $Given 06/09/2024 2:03 PM ADVANCED PRACTICE NURSE PSYCHOTHERAPIST 5 mLs hydromorphone (DILAUDID) injection 2 mg 2 mg, Intravenous, EVERY 1 HOUR PRN, severe pain, moderate pain, Starting on Wed06/09/24 at 1111, For 3 dosesIndications:Sickle cell pain crisis (H) $Given 06/09/2024 1:58 PM ADVANCED PRACTICE NURSE PSYCHOTHERAPIST 2 mg $Given 06/09/2024 12:52 PM ADVANCED PRACTICE NURSE PSYCHOTHERAPIST 2 mg $Given 06/09/2024 11:53 AM ADVANCED PRACTICE NURSE PSYCHOTHERAPIST 2 mg lactated ringers BOLUS 1,000 mL Intravenous, 1,000 mL, ONCE, at 500 mL/hr, Administer over 2 Hours, On Wed06/09/24 at 1115, For 1 doseIndications:Sickle cell pain crisis (H) $New Bag 06/09/2024 11:45 AM ADVANCED PRACTICE NURSE PSYCHOTHERAPIST 1,000 mLs 500 mL/hr sodium chloride (PF) [...] pain crisis (H) $Given 06/09/2024 11:45 AM ADVANCED PRACTICE NURSE PSYCHOTHERAPIST 20 mLs documented in this encounter Care Teams Molder Sweep Relationship Specialty Start Date End Date No Ref-Primary, Physician PCP - General 03/15/24 06/17/24 Mor Ramsey Medical Student 04/03/24 Case Samuel MD [address] [place] [address], [address] [place] [address] Assigned Pediatric Specialist Provider 05/18/24 Juhi Benson, RN Specialty Oversize Load Pilot Escort Hematology & Oncology 05/29/24 documented as of this encounter
--- OUTSIDE RECORDS SUMMARY | 2024-07-03 21:33 | XMS_ITS | Encounter Summary ---
Author Organization [place] Address [address] [place] [address]. [place] [address] Care Team Providers Care Curatorial Assistant Name Role Phone No Ref-Primary, Physician Primary Care Provider Mor Ramsey Unavailable Unavailable Case Samuel MD Unavailable [phone] Juhi Benson RN Unavailable Unavailable Reason for Visit * Reason Comments Sickle Cell Pain Crisis Chest Pain Encounter Details Date Type Department Care Team (Late st Contact Info) Description 06/05/2024 11:41 AM CUSTOMER RETENTION SPECIALIST - 06/05/2024 3:28 PM [facility] Emergency Room [address] [place] [address] Stiven Madsen MD [address] [address] Star Gifford MD [address] [place], [place] [id number] Sickle cell pain crisis (H) Discharge Disposition: [...] file Legal Sex Female 8:25 AM CUSTOMER RETENTION SPECIALIST Gender Identity Not on file Sexual Orientation Not on file documented as of this encounter Last Filed Vital Signs Vital Sign Reading Time Taken Comments Blood Pressure 114/67 06/05/2024 3:00 PM CUSTOMER RETENTION SPECIALIST Pulse 74 06/05/2024 3:00 PM CUSTOMER RETENTION SPECIALIST Temperature 36.8 C (98.3 F) 06/05/2024 11:37 AM CUSTOMER RETENTION SPECIALIST Respiratory Rate 18 06/05/2024 11:37 AM CUSTOMER RETENTION SPECIALIST Oxygen Saturation 99% 06/05/2024 3:00 PM CUSTOMER RETENTION SPECIALIST Inhaled Oxygen Concentration - - Weight 52.2 kg (115 lb) 06/05/2024 11:37 AM CUSTOMER RETENTION SPECIALIST Height 154.9 cm (5' 1) 06/05/2024 11:37 AM CUSTOMER RETENTION SPECIALIST Body Mass Index 21.73 06/05/2024 11:37 AM CUSTOMER RETENTION SPECIALIST documented in this encounter Discharge Instructions * Discharge Instructions* Stiven Madsen MD - 06/05/2024 12:59 PM CUSTOMER RETENTION SPECIALIST You were seen in the emergency department for a pain crisis. You were given medications and IV fluids. Please continue to follow-up with your established remedy developer after this ED visit. OMER RETENTION SPECIALIST documented in this encounter Medications at [...] other provider:Did you involve another provider (product marketing consultant, , pharmacy, etc.)?: No Discharge. No recommendations on prescription strength medication(s). See documentation for any additional details. MIPS: Not Applicable MEDICATIONS GIVEN IN THE EMERGENCY: Medications lactated ringers infusion (0 mLs Intravenous Stopped 06/05/24 8165) ondansetron (ZOFRAN) injection 8 mg (8 mg Intravenous $Given 06/05/24 1235) diphenhydrAMINE (BENADRYL) capsule 25 mg (25 mg Oral $Given 06/05/24 1240) NEW PRESCRIPTIONS STARTED AT TODAY'S ER VISIT Discharge Medication List as of 06/05/2024 3:28 PM HPI Patient information was obtained from: Patient Use of Sales And Service Agent: N/A Gianna Hernández is a 29 year [...] Per chart review, patient was seen at [facility] ED for sickle cell pain crisis on [...] 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 Recently moved to [place] from [place], [place]. She is 1 of 9 [...] Social Connections: Socially Integrated (03/28/2024) Received from [facility] Social Connections Do you often feel [...] abnormality. Rate: 88 BPM Rhythm: Sinus rhythm [place]: 81 [place] Interval: 148 ms QRS Interval: 82 ms [...] my direction. Stiven Madsen M.D. Emergency Medicine [facility] EMERGENCY ROOM [address] [facility] [phone] Dept: [phone] Stiven Madsen MD 06/05/24 1433 Stiven Madsen MD 06/05/24 1938 OMER RETENTION SPECIALIST OMER RETENTION SPECIALIST * Jose Ramon Sims, RN - 06/05/2024 [...] WDL Cognitive/Neuro/Behavioral WDL Cognitive/Neuro/Behavioral WDL WDL OMER RETENTION SPECIALIST documented in this encounter Plan of Treatment Upcoming Encounters Date Type Department Care Team (Late st Contact Info) Description 07/04/2024 9:00 AM CDT Lab [facility] [address] [place] [address] Case Samuel MD [address] [place] [address], [address] [place], [place] [address] 07/06/2024 8:00 AM CDT Appointment [facility] Sarah Ann [address] [place] [phone] Case Samuel MD [address] [facility] 484, [address] [place], [place] [address] 07/10/2024 11:30 AM CDT Oncology Visit [facility] [address] [place] [address] Case Samuel MD [address] [facility] 484, [address] [place], [place] [address] documented as of this encounter Goals Goal Patient Goal Type Associated Problems Recent Progress Patient-Stated? Author Pain Management General On track( 025 12:40 PM CUSTOMER RETENTION SPECIALIST) Yes Juhi Benson, RN Note: Goal [...] WITH MUSE SJN,SJO,LUCIANO STAT 06/05/2024 11:40 AM CUSTOMER RETENTION SPECIALIST documented in this encounter Results * ECG 12-LEAD WITH MUSE (E) (06/05/2024 11:40 AM CUSTOMER RETENTION SPECIALIST) Systolic Blood Pressure mmHg RADIOLOGY RESULTS Diastolic Blood Pressure mmHg RADIOLOGY RESULTS Ventricular Rate 88 BPM RAD IOLOGY RESULTS Atrial Rate 88 BPM RADIOLOG Y RESULTS KS Interval 148 ms RADIOLOG Y RESULTS QRS Duration 82 ms RADIOLO GY RESULTS QT 388 ms RADIOLOGY RESULTS QTc 469 ms RADIOLOGY RESULTS P [place] 43 degrees RADIOLOGY RESULTS R AXIS 81 degrees RADIOLOGY RESULTS T [place] 57 degrees RADIOLOGY RESULTS Interpretation ECG Sinus rhythm Nonspecific T wave abnormality Prolonged QT Abnormal ECG When compared with ECG of 03-Jun-2024 15:24, No significant change was found Confirmed by SEE ED PROVIDER NOTE FOR, ECG INTERPRETATION ([id number]), editor house organ Ariadna Shabazz ([id number]) on 06/05/2024 12:02:47 PM RADIOLOGY RESULTS 06/05/2024 11:4 0 AM CUSTOMER RETENTION SPECIALIST 06/05/2024 12:02 PM CUSTOMER RETENTION SPECIALIST us Stiven Madsen MD ECG ORDERABLES Edited [...] For 1 dose $Given 06/05/2024 12:40 PM CUSTOMER RETENTION SPECIALIST 25 mg heparin lock flush 10 unit/mL [...] for each lumen $Given 06/05/2024 3:20 PM CUSTOMER RETENTION SPECIALIST 5 mLs HYDROmorphone (DILAUDID) injection 2 mg 2 mg, Intravenous, EVERY 1 HOUR PRN, moderate pain, severe pain, Starting on Wed06/05/24 at 1153 $Given 06/05/2024 2:56 PM CUSTOMER RETENTION SPECIALIST 2 mg $Given 06/05/2024 1:54 PM CUSTOMER RETENTION SPECIALIST 2 mg $Given 06/05/2024 12:40 PM CUSTOMER RETENTION SPECIALIST 2 mg lactated ringers infusion at 500 mL/hr, Intravenous, CONTINUOUS, Starting on Wed06/05/24 at 1200, Until Wed06/05/24 at 1359 $New Bag 06/05/2024 12:39 PM CUSTOMER RETENTION SPECIALIST 500 mL/hr ondansetron (ZOFRAN) injection 8 mg 8 mg, Intravenous, ONCE, Administer over 2-5 Minutes, On Wed06/05/24 at 1200, For 1 dose $Given 06/05/2024 12:39 PM CUSTOMER RETENTION SPECIALIST 8 mg documented in this encounter Active and Recently Administered Medications Times are shown in CUSTOMER RETENTION SPECIALIST. Scheduled Medication Order 06/03/2024 06/04/2024 06/05/2024 ondansetron [...] RN) documented in this encounter Care Teams Curatorial Assistant Relationship Specialty Start Date End Date No Ref-Primary, Physician PCP - General 03/15/24 06/17/24 Mor Ramsey Medical Student 04/03/24 Case Samuel MD [address] [place] [address], [address] [place] [address] Assigned Pediatric Specialist Provider 05/18/24 Juhi Benson, RN Specialty Manager Transportation Planning Hematology & Oncology 05/29/24 documented as of this encounter
--- OUTSIDE RECORDS SUMMARY | 2024-07-03 21:33 | XMS_ITS | Encounter Summary ---
Author Organization [place] Address [address] [place] [address]. [place] [address] Care Team Providers Care Medical Charge Entry Specialist Name Role Phone Roxy Mor Unavailable Unavailable Case Samuel MD Unavailable [phone] Juhi Benson RN Unavailable Unavailable Veronica Joseph MD Primary Care Provider [phone] Encounter Details Date Type Department Care Team [...] on file Legal Sex Female 8:25 AM MARINE WATER TENDER Gender Identity Not on file Sexual Orientation Not on file documented as of this encounter Plan of Treatment Upcoming Encounters Date Type Department Care Team (Late st Contact Info) Description 07/04/2024 9:00 AM CDT Lab [facility] Cancer [address] [phone] Case Samuel MD [address] [place], [place] [address], ROOM [address] [address] 07/06/2024 8:00 AM CDT Appointment [facility] Advanced Treatment [address] [phone] Case Samuel MD [address] [place], [place] [address], [address] [address] 07/10/2024 11:30 AM CDT Oncology Visit [facility] [address] [address] Case Samuel MD [address] [place], [place] [address], [address] [address] documented as of this encounter Goals Goal Patient Goal Type Associated Problems Recent Progress Patient-Stated? Author Pain Management General On track( 025 12:40 PM MARINE WATER TENDER) Yes Juhi Benson, RN Note: Goal [...] on filedocumented in this encounter Care Teams Medical Charge Entry Specialist Relationship Specialty Start Date End Date Veronica Joseph MD [address] [place] [address] PCP - General Family Medicine 06/18/24 Mor Ramsey Medical Student 04/03/24 Case Samuel MD [address] [place] [address] 484, [address] [place] [address] Assigned Pediatric Specialist Provider 05/18/24 Juhi Benson, RN Specialty Microbiological Laboratory Technician Hematology & Oncology 05/29/24 documented as of this encounter
--- OUTSIDE RECORDS SUMMARY | 2024-07-03 21:33 | XMS_ITS | Encounter Summary ---
Author Organization [place] Address [address] [place] [address] Care Team Providers Care Distribution Tech Name Role Phone No Ref-Primary, Physician Primary Care Provider Mor Ramsey Unavailable Unavailable Case Samuel MD Unavailable [phone] Juhi Benson RN Unavailable Unavailable Reason for Visit * Reason Comments Chest Pain Sickle Cell Pain Crisis Encounter Details Date Type Department Care Team (Late st Contact Info) Description 06/03/2024 3:22 PM BRINE MAKER - 06/03/2024 5:30 PM BRINE MAKER Emergency [facility] Emergency Room [facility] [place] [address] Jennifer Bell MD [address] [place] [address] Sickle cell pain crisis (H) Discharge Disposition: [...] file Legal Sex Female 8:25 AM BRINE MAKER Gender Identity Not on file Sexual Orientation Not on file documented as of this encounter Last Filed Vital Signs Vital Sign Reading Time Taken Comments Blood Pressure 117/57 06/03/2024 5:00 PM BRINE MAKER Pulse 96 06/03/2024 5:00 PM BRINE MAKER Temperature 36.3 C (97.4 F) 06/03/2024 3:23 PM BRINE MAKER Respiratory Rate 17 06/03/2024 5:00 PM BRINE MAKER Oxygen Saturation 96% 06/03/2024 5:00 PM BRINE MAKER Inhaled Oxygen Concentration - - Weight 52.2 kg (115 lb) 06/03/2024 3:23 PM BRINE MAKER Height 154.9 cm (5' 1) 06/03/2024 3:23 PM BRINE MAKER Body Mass Index 21.73 06/03/2024 3:23 PM BRINE MAKER documented in this encounter Discharge Instructions [...] testing initially patient had labs done at [facility] ER earlier this morning as well [...] external records: External records reviewed?: Outpatient Record: [facility] today (06/03/24) Care impacted by chronic illness:Other: Sickle Cell Disease Did you consider but not order tests?: Work up considered but not performed and documented in chart, if applicable Did you interpret images independently?: Independent interpretation of ECG and images noted in documentation, when applicable. Consultation discussion with other provider:Did you involve another provider (events solutions consultant, , pharmacy, etc.)?: No Discharge. I [...] 10-20 mL (10 mLs Intracatheter $Given 06/03/24 8819) heparin lock flush 10 unit/mL injection 5-10 [...] her sickle cell pain. Patient presented to [facility] this morning due to sickle cell crisis and has labs, covid, flu, RSV, and chest x-ray which were all negative. She usually visits [facility] ED when her pain presents but she did not want to drive far with the [employer]. According to patient, they didn't believe her sickle cell disease, so they discharged patient with no stronger pain medications so she decided to come here. Patient is afebrile. There were no other concerns/complaints at this time. Chart Review: - Patient presented to [facility] today for her sickle cell pain crisis. 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, [facility] Functional asplenia Gallstones Hb-SS disease [...] Rate 85 BPM Atrial Rate 85 BPM MA Interval 136 ms QRS Duration 82 ms QT 382 ms QTc 454 ms P [place] 54 degrees R AXIS 72 degrees T [place] 50 degrees Interpretation ECG Sinus rhythm Nonspecific T wave abnormality Abnormal ECG When compared with ECG of 27-May-2024 12:12, No significant change was found Confirmed by SEE ED PROVIDER NOTE FOR, ECG INTERPRETATION (4000), publications editor BEN PRAKASH ([id number]) on 06/03/2024 3:58:10 PM EKG: Performed at: 03-Jun-2024 15:24:43 Impression: Sinus rhythm, nonspecific T wave abnormality, abnormal ECG Rate: 85 Rhythm: Sinus [place]: 72 MA Interval: 136 QRS Interval: 82 QTc Interval: [...] behalf by Alex Parsons, a trained medical care manager. This document has been checked and approved by the attending provider. Jennifer Bell MD Emergency Medicine [facility] EMERGENCY ROOM [address] [facility] [address] Dept: [phone] Jennifer Bell MD 06/03/24 1701 E MAKER * Nedra Martin RN - 06/03/2024 3:23 PM CST Pt c/o a possible sickle cell crisis with right sided chest pain that radiates to the left side. The pt did attempt to try using her home medication of diluadid of 4 mg without relief. Was just seen at [facility]. Pt has a port. Triage [...] WDL Cognitive/Neuro/Behavioral WDL Cognitive/Neuro/Behavioral WDL WDL E MAKER documented in this encounter Plan of Treatment Upcoming Encounters Date Type Department Care Team (Late st Contact Info) Description 07/04/2024 9:00 AM CDT Lab [facility] [address] [place] [address] Case Samuel MD [address] [place] [address], [address] [place], [place] [address] 07/06/2024 8:00 AM CDT Appointment [facility] [place] [address] [place] [phone] Case Samuel MD 420 [facility] 484, [address] [place], [place] [address] 07/10/2024 11:30 AM CDT Oncology Visit [facility] [address] [place] [address] Case Samuel MD [address] [facility] 484, [address] [place], [place] [address] documented as of this encounter Goals Goal Patient Goal Type Associated Problems Recent Progress Patient-Stated? Author Pain Management General On track( 025 12:40 PM BRINE MAKER) Yes Juhi Benson, RN Note: Goal [...] WITH MUSE ALEXANDRU,JEREMIAS,LUCIANO STAT 06/03/2024 3:24 PM BRINE MAKER documented in this encounter Results * ECG 12-LEAD WITH MUSE ([facility]) (06/03/2024 3:24 PM BRINE MAKER) Systolic Blood Pressure 131 mmHg RADIOLOGY RESULTS Diastolic Blood Pressure 76 mmHg RADIOLOGY RESULTS Ventricular Rate 85 BPM RAD IOLOGY RESULTS Atrial Rate 85 BPM RADIOLOG Y RESULTS MA Interval 136 ms RADIOLOG Y RESULTS QRS Duration 82 ms RADIOLO GY RESULTS QT 382 ms RADIOLOGY RESULTS QTc 454 ms RADIOLOGY RESULTS P [place] 54 degrees RADIOLOGY RESULTS R AXIS 72 degrees RADIOLOGY RESULTS T [place] 50 degrees RADIOLOGY RESULTS Interpretation ECG Sinus rhythm Nonspecific T wave abnormality Abnormal ECG When compared with ECG of 27-May-2024 12:12, No significant change was found Confirmed by SEE ED PROVIDER NOTE FOR, ECG INTERPRETATION ([id number]), publications editor BEN PRAKASH ([id number]) on 06/03/2024 3:58:10 PM RADIOLOGY RESULTS 06/03/2024 3:24 PM BRINE MAKER 06/03/2024 3:58 PM BRINE MAKER us Deshawn Arredondo MD ECG ORDERABLES Edited [...] For 1 dose $Given 06/03/2024 4:18 PM BRINE MAKER 50 mg heparin lock flush 10 unit/mL [...] the heparin flush. $Given 06/03/2024 5:20 PM BRINE MAKER 5 mLs heparin lock flush 100 unit/mL [...] For 3 doses $Given 06/03/2024 4:48 PM BRINE MAKER 2 mg $Given 06/03/2024 3:46 PM BRINE MAKER 2 mg lactated ringers BOLUS 1,000 mL Intravenous, 1,000 mL, ONCE, at 500 mL/hr, Administer over 2 Hours, On 06/03/24 at 1530, For 1 dose $New Bag 06/03/2024 3:51 PM BRINE MAKER 1,000 mLs 500 mL/hr ondansetron (ZOFRAN) injection 8 mg 8 mg, Intravenous, ONCE, Administer over 2-5 Minutes, On 06/03/24 at 1530, For 1 dose $Given 06/03/2024 3:46 PM BRINE MAKER 8 mg sodium chloride (PF) 0.9% PF [...] each port lumen. $Given 06/03/2024 3:51 PM BRINE MAKER 10 mLs documented in this encounter Active and Recently Administered Medications Times are shown in BRINE MAKER. Scheduled Medication Order 06/01/2024 06/02/2024 06/03/2024 diphenhydrAMINE [...] lumen documented in this encounter Care Teams Distribution Tech Relationship Specialty Start Date End Date No Ref-Primary, Physician PCP - General 03/15/24 06/17/24 Elvira Ramseyc Medical Student 04/03/24 Case Samuel MD [address] [place] [address], [address] [place] [address] Assigned Pediatric Specialist Provider 05/18/24 Juhi Benson, RN Specialty Cavalry Scout Hematology & Oncology 05/29/24 documented as of this encounter
--- OUTSIDE RECORDS SUMMARY | 2024-07-03 21:33 | XMS_ITS | Encounter Summary ---
Author Organization [facility] Address [address] [place] [address]. [place] [address] Care Team Providers Care Inclusion Teacher Name Role Phone No Ref-Primary, Physician Primary Care Provider Mor Ramsey Unavailable Unavailable Case Samuel MD Unavailable [phone] Juhi Benson RN Unavailable Unavailable Encounter Details [...] on file Legal Sex Female 8:25 AM LOSS PREVENTION INVESTIGATOR Gender Identity Not on file Sexual Orientation Not on file documented as of this encounter Plan of Treatment Upcoming Encounters Date Type Department Care Team (Late st Contact Info) Description 07/04/2024 9:00 AM CDT Lab [facility] [address] [phone] Case Samuel MD [address] [place], [place] [address], ROOM [address] [id number] 07/06/2024 8:00 AM CDT Appointment [facility] Treatment [address] [phone] Case Samuel MD [address] [place], [place] [address], RO[address] [id number] 07/10/2024 11:30 AM CDT Oncology Visit [facility] [address] [address] Case Samuel MD [address] [place], [place] [address], RO[address] [id number] documented as of this encounter Goals Goal Patient Goal Type Associated Problems Recent Progress Patient-Stated? Author Pain Management General On track( 025 12:40 PM LOSS PREVENTION INVESTIGATOR) Yes Juhi Benson, RN Note: Goal [...] on filedocumented in this encounter Care Teams Inclusion Teacher Relationship Specialty Start Date End Date No Ref-Primary, Physician PCP - General 03/15/24 06/17/24 Mor Ramsey Medical Student 04/03/24 Case Samuel MD [address] [place] [address], [address] [place] [address] Assigned Pediatric Specialist Provider 05/18/24 Juhi Benson, RN Specialty Assistant Professor Of Forestry Hematology & Oncology 05/29/24 documented as of this encounter
--- OUTSIDE RECORDS SUMMARY | 2024-07-03 21:33 | XMS_ITS | Encounter Summary ---
Author Organization [facility] Address [address] [place] [address]. [place] [address] Care Team Providers Care Closing Specialist Name Role Phone Roxy Mor Unavailable Unavailable Case Samuel MD Unavailable [phone] Juhi Benson RN Unavailable Unavailable Veronica Joseph MD Primary Care Provider [phone] Encounter Details Date Type Department Care Team [...] file Legal Sex Female 8:25 AM SENIOR VISUAL DESIGNER Gender Identity Not on file Sexual Orientation Not on file documented as of this encounter Plan of Treatment Upcoming Encounters Date Type Department Care Team (Late st Contact Info) Description 07/04/2024 9:00 AM CDT Lab [facility] [address] [phone] Case Samuel MD [address] [place], [place] [address], ROOM [address] [id number] 07/06/2024 8:00 AM CDT Appointment [facility] Advanced Treatment [address] [phone] Case Samuel MD [address] [place], [place] [address], RO[address] [address] 07/10/2024 11:30 AM CDT Oncology Visit [facility] [address] [address] Case Samuel MD [address] [place], [place] [address], RO[address] [id number] documented as of this encounter Goals Goal Patient Goal Type Associated Problems Recent Progress Patient-Stated? Author Pain Management General On track( 025 12:40 PM SENIOR VISUAL DESIGNER) Yes Juhi Benson, RN Note: Goal [...] on filedocumented in this encounter Care Teams Closing Specialist Relationship Specialty Start Date End Date Veronica Joseph MD [address] [place] [address] PCP - General Family Medicine 06/18/24 Mor Ramsey Medical Student 04/03/24 Case Samuel MD [address] [place] [address], [address] [place] [address] Assigned Pediatric Specialist Provider 05/18/24 Juhi Benson, RN Specialty Diabetes Trainer Hematology & Oncology 05/29/24 documented as of this encounter
--- OUTSIDE RECORDS SUMMARY | 2024-07-03 21:33 | XMS_ITS | Encounter Summary ---
Author Organization [facility] Address [address] [place] [address]. [place] [address] Care Team Providers Care Escrow Agent Name Role Phone No Ref-Primary, Physician Primary Care Provider Mor Ramsey Unavailable Unavailable Case Samuel MD Unavailable [phone] Juhi Benson RN Unavailable Unavailable Encounter Details [...] on file Legal Sex Female 8:25 AM REGULATORY PRODUCT MANAGER Gender Identity Not on file Sexual Orientation Not on file documented as of this encounter Plan of Treatment Upcoming Encounters Date Type Department Care Team (Late st Contact Info) Description 07/04/2024 9:00 AM CDT Lab [facility] Cancer [address] [phone] Case Samuel MD [address] [place], [place] [address], RO[address] [id number] 07/06/2024 8:00 AM CDT Appointment [facility] Advanced Treatment [address] [phone] Case Samuel MD [address] [place], [place] [address], RO[address] [id number] 07/10/2024 11:30 AM CDT Oncology Visit [facility] Cancer [address] [address] Case Samuel MD [address] [place], [place] [address], RO[address] [address] documented as of this encounter Goals Goal Patient Goal Type Associated Problems Recent Progress Patient-Stated? Author Pain Management General On track( 025 12:40 PM REGULATORY PRODUCT MANAGER) Yes Juhi Benson, RN Note: Goal [...] on filedocumented in this encounter Care Teams Escrow Agent Relationship Specialty Start Date End Date No Ref-Primary, Physician PCP - General 03/15/24 06/17/24 Mor Ramsey Medical Student 04/03/24 Case Samuel MD [address] [place] [address], [address] [place] [address] Assigned Pediatric Specialist Provider 05/18/24 Juhi Benson, RN Specialty Game Tester Hematology & Oncology 05/29/24 documented as of this encounter
--- OUTSIDE RECORDS SUMMARY | 2024-07-03 21:33 | XMS_ITS | Encounter Summary ---
Author Organization [facility] Address [address] [place] [address]. [address] Care Team Providers Care Collar Trimmer Name Role Phone No Ref-Primary, Physician Primary Care Provider Mor Ramsey Unavailable Unavailable Case Samuel MD Unavailable [phone] Juhi Benson RN Unavailable Unavailable Reason for Visit * Reason Comments Sickle Cell Pain Crisis Encounter Details Date Type Department Care Team (Late st Contact Info) Description 06/07/2024 10:00 AM COMPUTER APPLICATIONS INSTRUCTOR - 06/07/2024 10:45 AM [facility] Emergency [facility] Emergency Room [facility] [place] [address] Bernabe Farley MD [facility] [address] [place] [address] Chest pain, unspecified type; Fever, unspecified fever [...] file Legal Sex Female 8:25 AM COMPUTER APPLICATIONS INSTRUCTOR Gender Identity Not on file Sexual Orientation Not on file documented as of this encounter Last Filed Vital Signs Vital Sign Reading Time Taken Comments Blood Pressure 108/63 06/07/2024 9:59 AM COMPUTER APPLICATIONS INSTRUCTOR Pulse 84 06/07/2024 9:59 AM COMPUTER APPLICATIONS INSTRUCTOR Temperature 36.6 C (97.9 F) 06/07/2024 9:59 AM COMPUTER APPLICATIONS INSTRUCTOR Respiratory Rate 19 06/07/2024 9:59 AM COMPUTER APPLICATIONS INSTRUCTOR Oxygen Saturation 100% 06/07/2024 9:59 AM COMPUTER APPLICATIONS INSTRUCTOR Inhaled Oxygen Concentration - - Weight 52.2 kg (115 lb) 06/07/2024 9:59 AM COMPUTER APPLICATIONS INSTRUCTOR Height - - Body Mass Index 21.73 06/06/2024 9:33 AM COMPUTER APPLICATIONS INSTRUCTOR documented in this encounter Medications at [...] naloxone (NARCAN) 4 MG/0.1ML nasal spray [place] 1 spray (4 mg) into one nostril [...] did not want to wait for a driver material handler so she would like to leave at this time. MD and charge informed. UTER APPLICATIONS INSTRUCTOR * Bernabe Farley MD - 06/07/2024 10:04 [...] she unfortunately left by car as the driver material handler after stating to staff that she had [...] left. Additional ED Course timestamps entered by ophthalmic medical assistant: 10:12 AM I met with the patient [...] at this time. Per Chart Review: 06/06/24, [facility] ED: Patient presented for sickle [...] physician who is working with her director independent for the care plan. Per the patient [...] Our sales secretary Hattie and our security inspector Jagdeep both just saw the patient to get into the driver material handler seat and drive away after being told [...] my direction. Bernabe Farley M.D. Emergency Medicine [facility] EMERGENCY ROOM [address] [facility] [place] [id number] Dept: [phone] Bernabe Farley MD 06/07/24 1045 UTER APPLICATIONS INSTRUCTOR * Yanely Avendano RN - 06/07/2024 10:04 AM CST Pt here in sickle cell crisis for the 3rd day. Yesterday she received a lot of IV dilaudid and then drove home after told not to. Upon arrival here she repeatedly told this mortgage or loan underwriter she was dropped off but after reviewing the security camera she is clearly driving in and getting out of the driver material handler seat. Provider notified. Reports chest pain today. Last dose of oral was 2 hours ago. Triage Assessment (Adult) Row Name 06/07/24 0959 Triage Assessment Airway WDL WDL Respiratory WDL Respiratory WDL WDL Skin Circulation/Temperature WDL Skin Circulation/Temperature WDL WDL Cardiac WDL Cardiac WDL WDL Peripheral/Neurovascular WDL Peripheral Neurovascular WDL WDL Cognitive/Neuro/Behavioral WDL Cognitive/Neuro/Behavioral WDL WDL UTER APPLICATIONS INSTRUCTOR documented in this encounter Plan of Treatment Upcoming Encounters Date Type Department Care Team (Late st Contact Info) Description 07/04/2024 9:00 AM CDT Lab [facility] [address] [place] [address] Case Samuel MD [address] [place], [place] [address], [address] [place], [place] [address] 07/06/2024 8:00 AM CDT Appointment [facility] [place] [address] [place] [phone] Case Samuel MD [address] [place] [address], [address] [place], [place] [address] 07/10/2024 11:30 AM CDT Oncology Visit [facility] [address] [place] [address] Case Samuel MD [address] [facility] [address], [address] [place], [place] [address] documented as of this encounter Goals Goal Patient Goal Type Associated Problems Recent Progress Patient-Stated? Author Pain Management General On track( 025 12:40 PM COMPUTER APPLICATIONS INSTRUCTOR) Yes Juhi Benson, SOFIA Note: Goal [...] Administered Medications Times are shown in COMPUTER APPLICATIONS INSTRUCTOR. Scheduled Medication Order 06/05/2024 06/06/2024 06/07/2024 heparin [...] Out COVID-19 06/07/2024 06/07/2024 06/07/2024 12:50 PM COMPUTER APPLICATIONS INSTRUCTOR documented as of this encounter Care Teams Collar Trimmer Relationship Specialty Start Date End Date No Ref-Primary, Physician PCP - General 03/15/24 06/17/24 Roxy Mor Medical Student 04/03/24 Case Samuel MD [address] [place] [address], [address] [place] [address] Assigned Pediatric Specialist Provider 05/18/24 Juhi Benson, RN Specialty Child Support Officer Hematology & Oncology 05/29/24 documented as of this encounter
--- OUTSIDE RECORDS SUMMARY | 2024-07-03 21:33 | XMS_ITS | Encounter Summary ---
Author Organization [facility] Address [address] [place] [address] Care Team Providers Care Dental Cream Maker Name Role Phone [employer] Unavailable Unavailable Case Samuel MD Unavailable [phone] Juhi Benson RN Unavailable Unavailable Veronica Joseph MD Primary Care Provider [phone] Reason for Visit * Reason Comments Sickle Cell Pain Crisis Encounter Details Date Type Department Care Team (Late st Contact Info) Description 06/25/2024 9:50 PM ELECTRIC DRILL OPERATOR - 06/26/2024 1:11 AM ELECTRIC DRILL OPERATOR Emergency [facility] Emergency Department [address] [place] [phone] Polly Naylor MD [address] [place], [place] [phone] Marissa Matos MD [address] [place] [phone] Sickle cell disease with crisis (H); Chest [...] file Legal Sex Female 8:25 AM ELECTRIC DRILL OPERATOR Gender Identity Not on file Sexual Orientation Not on file documented as of this encounter Last Filed Vital Signs Vital Sign Reading Time Taken Comments Blood Pressure 117/81 06/25/2024 9:46 PM ELECTRIC DRILL OPERATOR Pulse 104 06/25/2024 9:46 PM ELECTRIC DRILL OPERATOR Temperature 36.8 C (98.2 F) 06/25/2024 9:46 PM ELECTRIC DRILL OPERATOR Respiratory Rate 16 06/25/2024 9:46 PM ELECTRIC DRILL OPERATOR Oxygen Saturation 98% 06/25/2024 9:46 PM ELECTRIC DRILL OPERATOR Inhaled Oxygen Concentration - - Weight 51 kg (112 lb 6.4 oz) 06/25/2024 9:46 PM ELECTRIC DRILL OPERATOR Height - - Body Mass Index 21.24 06/24/2024 9:26 AM ELECTRIC DRILL OPERATOR documented in this encounter Discharge Instructions * Discharge Instructions* Polly Naylor MD - 06/26/2024 12:04 AM ELECTRIC DRILL OPERATOR You are seen in the emergency department [...] that time. Otherwise, please follow-up with your supervisory investigative specialist as previously planned tomorrow. TRIC DRILL OPERATOR documented in this encounter Medications at [...] 05/01/2024 naloxone (NARCAN) 4 MG/0.1ML nasal spray [place] 1 spray (4 mg) into one nostril [...] note were not included. ED Provider Note [facility] EMERGENCY DEPARTMENT ([facility]) 06/25/24 ED PROVIDER NOTE History Chief Complaint [...] she is hoping to get evaluatedby her supervisory investigative specialist. She is missed her hematology appointments for [...] chest pain Rhythm: normal sinus Rate: normal Agra: normal Ectopy: none Conduction: normal ST Segments/ T Waves: No ST-T wave changes Q Waves: none Comparison to prior: Unchanged Clinical Impression: normal EKG Results for orders placed or performed during the hospital encounter of 06/25/24 XR Chest 2 Views Status: None Narrative EXAM: XR CHEST 2 VIEWS LOCATION: [facility] DATE: 06/25/2024 INDICATION: Chest pain, SSC. [...] Negative Ketones Urine Negative Negative mg/dL Specific Ocate Urine 1.009 1.003 - 1.035 Blood Urine [...] Rate 87 BPM Atrial Rate 87 BPM DC Interval 162 ms QRS Duration 86 ms QT 362 ms QTc 435 ms P Agra 54 degrees R AXIS 84 degrees T Agra 70 degrees Interpretation ECG Sinus rhythm Normal ECG Unconfirmed report - interpretation of this ECG is computer generated - see medical record for final interpretation Confirmed by - EMERGENCY ROOM, PHYSICIAN ([id number]), news assignment editor Nivia Willson ([id number]) on 06/25/2024 10:56:42 PM CBC with platelets differential Status: Abnormal Narrative The following orders were created for panel order CBC with platelets differential. Procedure Abnormality Status --------- ------ CBC with platelets and d...[[id number]] Abnormal Final result Please view results for these tests on the individual orders. Medications hydromorphone (DILAUDID) injection 2 mg (2 mg Intravenous $Given 06/25/24 601) sodium chloride 0.9% BOLUS 1,000 mL (1,000 [...] Bilirubin Urine Negative Ketones Urine Negative Specific Ocate Urine 1.009 Blood Urine Negative pH Urine [...] Chest pain, unspecified type Polly Naylor MD [facility] EMERGENCY DEPARTMENT 06/25/2024 Polly Naylor MD 06/26/24 0006 TRIC DRILL OPERATOR * Juhi Crump, RN - 06/25/2024 9:47 [...] 5-->(V5) oriented Lester Coma Scale Score 15 TRIC DRILL OPERATOR documented in this encounter Plan of Treatment Upcoming Encounters Date Type Department Care Team (Late st Contact Info) Description 07/04/2024 9:00 AM CDT Lab [facility] [address] [place] [address] Case Samuel MD [address] [place] [address] 484, [address] [place], [place] [phone] 07/06/2024 8:00 AM CDT Appointment [facility] [place] [address] [place] [phone] Case Samuel MD [address] [place] [address] 484, [address] [place], [place] [phone] 07/10/2024 11:30 AM CDT Oncology Visit [facility] [address] [place] [address] Case Samuel MD [address] [facility] [address], [address] [place], [place] [phone] documented as of this encounter Goals Goal Patient Goal Type Associated Problems Recent Progress Patient-Stated? Author Pain Management General On track( 025 12:40 PM ELECTRIC DRILL OPERATOR) Yes Juhi Benson, SOFIA Note: Goal [...] 2 VIEWS STAT 06/25/2024 10:3 5 PM ELECTRIC DRILL OPERATOR EKG 12-LEAD, TRACING ONLY STAT 06/25/2024 10:19 PM ELECTRIC DRILL OPERATOR ROUTINE UA WITH MICROSCOPIC REFLEX TO CULTURE STAT 06/25/2024 10:16 PM ELECTRIC DRILL OPERATOR CBC WITH PLATELETS AND DIFFERENTIAL STAT 06/25/2024 10:15 PM ELECTRIC DRILL OPERATOR TROPONIN T, HIGH SENSITIVITY STAT 06/25/2024 10:15 PM ELECTRIC DRILL OPERATOR CBC WITH PLATELETS & DIFFERENTIAL STAT 06/25/2024 10:15 PM ELECTRIC DRILL OPERATOR BASIC METABOLIC PANEL STAT 06/25/2024 10:15 PM ELECTRIC DRILL OPERATOR documented in this encounter Results * XR Chest 2 Views (06/25/2024 10:35 PM ELECTRIC DRILL OPERATOR) Anatomical Region Laterality Modality Chest Digital Radiogra phy 06/25/2024 10:3 5 PM ELECTRIC DRILL OPERATOR Impressions 06/25/2024 10:47 PM ELECTRIC DRILL OPERATOR IMPRESSION: Bilateral portacatheter with tips in the SVC. Mild low lung volumes. Heart size and pulmonary vascularity stable at the upper limits of normal. Mild patchy right middle lobe infiltrate or atelectasis. Narrative 06/25/2024 10:47 PM ELECTRIC DRILL OPERATOR EXAM: XR CHEST 2 VIEWS LOCATION: [facility] DATE: 06/25/2024 INDICATION: Chest pain, SSC. COMPARISON: 06/16/2024. Procedure Note Jayden Correa MD - 06/25/2024 EXAM: XR CHEST 2 VIEWS LOCATION: [facility] DATE: 06/25/2024 INDICATION: Chest pain, SSC. COMPARISON: 06/16/2024. IMPRESSION: Bilateral portacatheter with tips in the SVC. Mild low lungvolumes. Heart size and pulmonary vascularity stable at the upper limitsof normal. Mild patchy right middle lobe infiltrate or atelectasis. Polly Naylor MD IMG DIAGNOSTIC IMAGING ORDERABLE S Final Result * EKG 12-lead, tracing only (06/25/2024 10:19 PM ELECTRIC DRILL OPERATOR) Systolic Blood Pressure mmHg RADIOLOGY RESULTS Diastolic Blood Pressure mmHg RADIOLOGY RESULTS Ventricular Rate 87 BPM RAD IOLOGY RESULTS Atrial Rate 87 BPM RADIOLOG Y RESULTS DC Interval 162 ms RADIOLOG Y RESULTS QRS Duration 86 ms RADIOLO GY RESULTS QT 362 ms RADIOLOGY RESULTS QTc 435 ms RADIOLOGY RESULTS P Agra 54 degrees RADIOLOGY RESULTS R AXIS 84 degrees RADIOLOGY RESULTS T Agra 70 degrees RADIOLOGY RESULTS Interpretation ECG Sinus rhythm Normal ECG Unconfirmed report - interpretation of this ECG is computer generated - see medical record for final interpretation Confirmed by - EMERGENCY ROOM, PHYSICIAN ([id number]), news assignment editor Nivia Willson ([id number]) on 06/25/2024 10:56:42 PM RADIOLOGY RESULTS 06/25/2024 10:1 9 PM ELECTRIC DRILL OPERATOR 06/25/2024 10:56 PM ELECTRIC DRILL OPERATOR us Polly Naylor MD ECG ORDERABLES Edited Result - Final RADIOLOGY RESULTS * (ABNORMAL) UA with Microscopic reflex to Culture (06/25/2024 10:16 PM ELECTRIC DRILL OPERATOR) Color Urine Light Yellow Colorless, Straw, Light Yellow, Yellow 06/25/2024 10:33 PM ELECTRIC DRILL OPERATOR [facility] Appearance Urine Clear Clear 06/26/19 10:33 PM ELECTRIC DRILL OPERATOR [facility] Glucose Urine Negative Negative mg/dL 06/25/2024 10:33 PM ELECTRIC DRILL OPERATOR [facility] Bilirubin Urine Negative Negative 10:33 PM ELECTRIC DRILL OPERATOR [facility] Ketones Urine Negative Negative mg/dL 06/25/2024 10:33 PM ELECTRIC DRILL OPERATOR [facility] Specific Ocate Urine 1.009 1.003 - 1.035 06/25/2024 10:33 PM ELECTRIC DRILL OPERATOR [facility] Blood Urine Negative Negative 06/25/2024 10:33 PM ELECTRIC DRILL OPERATOR [facility] pH Urine 7.5(H) 5.0 - 7.0 06/25/2024 10:33 PM ELECTRIC DRILL OPERATOR [facility] Protein Albumin Urine Negative Negative mg/dL 06/25/2024 10:33 PM ELECTRIC DRILL OPERATOR [facility] Urobilinogen Urine Normal Normal, 2.0 mg/dL 06/25/2024 10:33 PM ELECTRIC DRILL OPERATOR [facility] Nitrite Urine Negative Negative 06/25/2024 10:33 PM ELECTRIC DRILL OPERATOR [facility] Leukocyte Esterase Urine Negative Negative 06/25/2024 10:33 PM ELECTRIC DRILL OPERATOR [facility] RBC Urine 0 <=2 /HPF 06/25/2024 10:33 PM ELECTRIC DRILL OPERATOR [facility] WBC Urine 0 <=5 /HPF 06/25/2024 10:33 PM ELECTRIC DRILL OPERATOR [facility] Squamous Epithelials Urine 2(H) <=1 /HPF 06/25/2024 10:33 PM ELECTRIC DRILL OPERATOR [facility] Urine URINE SPECIMEN OBTAINED BY CLEAN CATCH PROCEDURE / Unknown Non-blood Collection / Unknown 06/25/2024 10:16 PM ELECTRIC DRILL OPERATOR 06/25/2024 10:23 PM ELECTRIC DRILL OPERATOR Narrative [facility] - 06/25/2024 10:33 PM ELECTRIC DRILL OPERATOR Urine Culture not indicated us Polly Naylor MD LAB - URINE ORDERABLES Final Res ult [facility] [place] [facility] [address] [facility], [address] [place] [address], [facility] * (ABNORMAL) CBC with platelets and differential (06/25/2024 10:15 PM ELECTRIC DRILL OPERATOR) WBC Count 12.5(H) 4.0 - 11.0 10e3/uL 06/25/2024 10:30 PM ELECTRIC DRILL OPERATOR [facility] RBC Count 2.32(L) 3.80 - 5.20 10e6/uL 06/25/2024 10:30 PM ELECTRIC DRILL OPERATOR [facility] Hemoglobin 7.8(L) 11.7 - 15.7 g/dL 06/25/2024 10:30 PM ELECTRIC DRILL OPERATOR [facility] Hematocrit 22.7(L) 35.0 - 47.0 % 06/25/2024 10:30 PM ELECTRIC DRILL OPERATOR [facility] MCV 98 78 - 100 fL 06/25/2024 10:30 PM ELECTRIC DRILL OPERATOR [facility] MCH 33.6(H) 26.5 - 33.0 pg 06/25/2024 10:30 PM ELECTRIC DRILL OPERATOR [facility] MCHC 34.4 31.5 - 36.5 g/dL 06/25/2024 10:30 PM ELECTRIC DRILL OPERATOR [facility] RDW 19.2(H) 10.0 - 15.0 % 06/25/2024 10:30 PM ELECTRIC DRILL OPERATOR [facility] Platelet Count 451(H) 150 - 450 10e3/uL 06/25/2024 10:30 PM ELECTRIC DRILL OPERATOR [facility] % Neutrophils 48 % 06/25/2024 10:30 PM ELECTRIC DRILL OPERATOR [facility] % Lymphocytes 39 % 06/25/2024 10:30 PM ELECTRIC DRILL OPERATOR [facility] % Monocytes 10 % 06/25/2024 10:30 PM ELECTRIC DRILL OPERATOR [facility] % Eosinophils 2 % 06/25/2024 10:30 PM ELECTRIC DRILL OPERATOR [facility] % Basophils 1 % 06/25/2024 10:30 PM ELECTRIC DRILL OPERATOR [facility] % Immature Granulocytes 1 % 06/25/2024 10:30 PM ELECTRIC DRILL OPERATOR [facility] NRBCs per 100 WBC 1(H) <1 /100 025 10:30 PM ELECTRIC DRILL OPERATOR [facility] Absolute Neutrophils 6.0 1.6 - 8.3 10e3/uL 06/25/2024 10:30 PM ELECTRIC DRILL OPERATOR [facility] Absolute Lymphocytes 4.8 0.8 - 5.3 10e3/uL 06/25/2024 10:30 PM ELECTRIC DRILL OPERATOR [facility] Absolute Monocytes 1.2 0.0 - 1.3 10e3/uL 06/25/2024 10:30 PM ELECTRIC DRILL OPERATOR [facility] Absolute Eosinophils 0.2 0.0 - 0.7 10e3/uL 06/25/2024 10:30 PM ELECTRIC DRILL OPERATOR [facility] Absolute Basophils 0.1 0.0 - 0.2 10e3/uL 06/25/2024 10:30 PM ELECTRIC DRILL OPERATOR [facility] Absolute Immature Granulocytes 0.1 <=0.4 10e3/uL 06/25/2024 10:30 PM ELECTRIC DRILL OPERATOR [facility] Absolute NRBCs 0.2 10e3/uL 06/25/2024 10:30 PM ELECTRIC DRILL OPERATOR [facility] Blood BLOOD SPECIMEN / Unknown IVAD (Port) / Unknown 06/25/2024 10:15 PM ELECTRIC DRILL OPERATOR 06/25/2024 10:24 PM ELECTRIC DRILL OPERATOR us Polly Naylor MD LAB - BLOOD ORDERABLES Final Res ult [facility] [place] [facility] [address] [facility], [address] [phone] * Troponin T, High Sensitivity (06/25/2024 10:15 PM ELECTRIC DRILL OPERATOR) Troponin T, High Sensitivity <6 <=14 ng/L 06/25/2024 10:51 PM ELECTRIC DRILL OPERATOR [facility] Comment: Either a High [...] IVAD (Port) / Unknown 06/25/2024 10:15 PM ELECTRIC DRILL OPERATOR 06/25/2024 10:24 PM ELECTRIC DRILL OPERATOR us Polly Naylor MD LAB - BLOOD ORDERABLES Final Res ult [facility] [place] [facility] [address] [facility], [address] [place] [address], [facility] * (ABNORMAL) Basic metabolic panel (06/25/2024 10:15 PM ELECTRIC DRILL OPERATOR) Sodium 137 135 - 145 mmol/L 06/25/2024 10:51 PM ELECTRIC DRILL OPERATOR [facility] Potassium 3.7 3.4 - 5.3 mmol/L 06/25/2024 10:51 PM ELECTRIC DRILL OPERATOR [facility] Chloride 107 98 - 107 mmol/L 06/25/2024 10:51 PM ELECTRIC DRILL OPERATOR [facility] Carbon Dioxide (CO2) 22 22 - 29 mmol/L 06/25/2024 10:51 PM ELECTRIC DRILL OPERATOR [facility] Anion Gap 8 7 - 15 mmol/L 06/25/2024 10:51 PM ELECTRIC DRILL OPERATOR [facility] Urea Nitrogen 6.7 6.0 - 20.0 mg/dL 06/25/2024 10:51 PM ELECTRIC DRILL OPERATOR [facility] Creatinine 0.69 0.51 - 0.95 mg/dL 06/25/2024 10:51 PM ELECTRIC DRILL OPERATOR [facility] GFR Estimate >90 >60 mL/min/1.7 3m2 06/25/2024 10:51 PM ELECTRIC DRILL OPERATOR [facility] Comment:eGFR calculated us2020 CKD-EPI equation. Calcium 8.7(L) 8.8 - 10.4 mg/dL 06/25/2024 10:51 PM ELECTRIC DRILL OPERATOR [facility] Glucose 87 70 - 99 mg/dL 06/25/2024 10:51 PM ELECTRIC DRILL OPERATOR [facility] Blood BLOOD SPECIMEN / Unknown IVAD (Port) / Unknown 06/25/2024 10:15 PM ELECTRIC DRILL OPERATOR 06/25/2024 10:24 PM ELECTRIC DRILL OPERATOR us Polly Naylor MD LAB - BLOOD ORDERABLES Final Res ult [facility] [place] [facility] [address] [facility], [address] [place] [address], [facility] documented in this encounter Visit [...] For 1 dose $Given 06/25/2024 10:39 PM ELECTRIC DRILL OPERATOR 25 mg heparin lock flush 100 [...] each port lumen $Given 06/26/2024 12:55 AM ELECTRIC DRILL OPERATOR 5 mLs hydromorphone (DILAUDID) injection 2 mg 2 mg, Intravenous, EVERY 1 HOUR PRN, severe pain, moderate pain, Starting on 06/25/24 at 2151, For 3 doses $Given 06/26/2024 12:37 AM ELECTRIC DRILL OPERATOR 2 mg $Given 06/25/2024 11:42 PM ELECTRIC DRILL OPERATOR 2 mg $Given 06/25/2024 10:36 PM ELECTRIC DRILL OPERATOR 2 mg ondansetron (ZOFRAN) injection 8 mg 8 mg, Intravenous, ONCE, Administer over 2-5 Minutes, On 06/25/24 at 2155, For 1 dose $Given 06/25/2024 10:38 PM ELECTRIC DRILL OPERATOR 8 mg sodium chloride 0.9% BOLUS 1,000 mL Intravenous, 1,000 mL, ONCE, at 500 mL/hr, Administer over 2 Hours, On Wed06/25/24 at 2205, For 1 dose $New Bag 06/25/2024 10:18 PM ELECTRIC DRILL OPERATOR 1,000 mLs 500 mL/hr documented in this encounter Active and Recently Administered Medications Times are shown in ELECTRIC DRILL OPERATOR. Scheduled Medication Order 06/24/2024 06/25/2024 06/26/2024 diphenhydrAMINE [...] RN) documented in this encounter Care Teams Dental Cream Maker Relationship Specialty Start Date End Date Veronica Joseph MD [address] [place] [address] PCP - General Family Medicine 06/18/24 Mor Ramsey Medical Student 04/03/24 Case Samuel MD [address] [place] [address] 484, [address] [place] [address] Assigned Pediatric Specialist Provider 05/18/24 Juhi Benson, RN Specialty Jack Machine Operator Hematology & Oncology 05/29/24 documented as of this encounter
--- OUTSIDE RECORDS SUMMARY | 2024-07-03 21:34 | XMS_ITS | Encounter Summary ---
Author Organization [facility] Address [address] [place] [address] Care Team Providers Care Practical Ministries Professor Name Role Phone Roxy Mor Unavailable Unavailable Case Samuel MD Unavailable [phone] Juhi Benson RN Unavailable Unavailable Veronica Joseph MD Primary Care Provider [phone] Reason for Visit * Reason Comments Sickle Cell Pain Crisis Encounter Details Date Type Department Care Team (Late st Contact Info) Description 06/22/2024 5:23 PM FINISHER CARD TENDER - 06/22/2024 10:02 PM FINISHER CARD TENDER Emergency [facility] Emergency Department [address] [place] [phone] Lynne Varner MD [address] [place] [address] [id number] Sickle cell anemia with crisis (H) Discharge [...] on file Legal Sex Female 8:25 AM FINISHER CARD TENDER Gender Identity Not on file Sexual Orientation Not on file documented as of this encounter Last Filed Vital Signs Vital Sign Reading Time Taken Comments Blood Pressure 104/73 06/22/2024 5:03 PM FINISHER CARD TENDER Pulse 100 06/22/2024 5:03 PM FINISHER CARD TENDER Temperature 36.8 C (98.2 F) 06/22/2024 5:03 PM FINISHER CARD TENDER Respiratory Rate 16 06/22/2024 5:03 PM FINISHER CARD TENDER Oxygen Saturation 99% 06/22/2024 5:03 PM FINISHER CARD TENDER Inhaled Oxygen Concentration - - Weight 52.2 kg (115 lb) 06/22/2024 5:03 PM FINISHER CARD TENDER Height 154.9 cm (5' 1) 06/22/2024 5:03 PM FINISHER CARD TENDER Body Mass Index 21.73 06/22/2024 5:03 PM FINISHER CARD TENDER documented in this encounter Discharge Instructions * Discharge Instructions* Lynne Varner MD - 06/22/2024 5:43 PM FINISHER CARD TENDER TODAY'S VISIT: You were seen today for [...] new or worsening symptoms or any concerns. SHER CARD TENDER * Attachments The following attachments cannot [...] 05/01/2024 naloxone (NARCAN) 4 MG/0.1ML nasal spray [place] 1 spray (4 mg) into one nostril [...] Surgical History, and Social History in the [employer] system. Past Medical History: Diagnosis Date Acute [...] 11 naloxone (NARCAN) 4 MG/0.1ML nasal spray [place] 1 spray (4 mg) into one nostril [...] Concern Not on file Social History Narrative [id number] mom. Recently moved to [place] from [place], [place]. She is 1 of 9 [...] Social Connections: Socially Integrated (03/28/2024) [facility] [employer] [facility] Social Connections Do you [...] Status --------- ------ CBC with platelets and d...[[id number]] Abnormal Final result RBC and Platelet Morphology[[id number]] Please view results for these tests on [...] crisis (H) LYNNE VARNER MD 06/22/2024 [facility] Lynne Varner MD 06/22/24 [id number] SHER CARD TENDER * Milagros Lofton RN - 06/22/2024 5:06 PM CST Pt is here for sickle cell crisis. Pain in her back and both legs. PT took her home dilaudid oral at 2 pm. Pt coming in for her pain. Denies any symptoms. Triage Assessment (Adult) Row Name 06/22/24 4079 Triage Assessment Airway WDL WDL Respiratory WDL Respiratory WDL WDL Skin Circulation/Temperature WDL Skin Circulation/Temperature WDL WDL Cardiac WDL Cardiac WDL WDL Cardiac Rhythm Other (Comment) Peripheral/Neurovascular WDL Peripheral Neurovascular WDL WDL Cognitive/Neuro/Behavioral WDL Cognitive/Neuro/Behavioral WDL WDL SHER CARD TENDER documented in this encounter Plan of Treatment Upcoming Encounters Date Type Department Care Team (Late st Contact Info) Description 07/04/2024 9:00 AM CDT Lab [facility] [address] [phone] Case Samuel MD [address] [place] [address], [address] [place], [place] [phone] 07/06/2024 8:00 AM CDT Appointment [facility] [address] [phone] Case Samuel MD [address] [place] [address], [address] [place] [address] 07/10/2024 11:30 AM CDT Oncology Visit [facility] [address] [phone] Case Samuel MD [address] [place], [place] [address], [address] [place], [place] [phone] documented as of this encounter Goals Goal Patient Goal Type Associated Problems Recent Progress Patient-Stated? Author Pain Management General On track( 025 12:40 PM FINISHER CARD TENDER) Yes Juhi Benson, SOFIA Note: Goal Statement: [...] PLATELETS AND DIFFERENTIAL STAT 06/22/2024 7:10 PM FINISHER CARD TENDER CBC WITH PLATELETS & DIFFERENTIAL STAT 06/22/2024 7:10 PM FINISHER CARD TENDER RETICULOCYTE COUNT STAT 06/22/2024 7: 10 PM FINISHER CARD TENDER HCG QUALITATIVE STAT 06/22/2024 7:10 PM FINISHER CARD TENDER COMPREHENSIVE METABOLIC PANEL STAT 06/22/2024 7:10 PM FINISHER CARD TENDER documented in this encounter Results * (ABNORMAL) CBC with platelets and differential (06/22/2024 7:10 PM FINISHER CARD TENDER) WBC Count 13.7(H) 4.0 - 11.0 10e3/uL 06/22/2024 7:47 PM FINISHER CARD TENDER [facility] RBC Count 2.48(L) 3.80 - 5.20 10e6/uL 06/22/2024 7:47 PM FINISHER CARD TENDER [facility] Hemoglobin 8.2(L) 11.7 - 15.7 g/dL 06/22/2024 7:47 PM FINISHER CARD TENDER [facility] Hematocrit 23.3(L) 35.0 - 47.0 % 06/22/2024 7:47 PM FINISHER CARD TENDER [facility] MCV 94 78 - 100 fL 06/22/2024 7:47 PM FINISHER CARD TENDER [facility] MCH 33.1(H) 26.5 - 33.0 pg 06/22/2024 7:47 PM FINISHER CARD TENDER [facility] MCHC 35.2 31.5 - 36.5 g/dL 06/22/2024 7:47 PM FINISHER CARD TENDER [facility] RDW 18.6(H) 10.0 - 15.0 % 06/22/2024 7:47 PM FINISHER CARD TENDER [facility] Platelet Count 470(H) 150 - 450 10e3/uL 06/22/2024 7:47 PM FINISHER CARD TENDER [facility] % Neutrophils 78 % 06/22/2024 7:47 PM FINISHER CARD TENDER [facility] % Lymphocytes 16 % 06/22/2024 7:47 PM FINISHER CARD TENDER [facility] % Monocytes 4 % 06/22/2024 7:47 PM FINISHER CARD TENDER [facility] % Eosinophils 1 % 06/22/2024 7:47 PM FINISHER CARD TENDER [facility] % Basophils 1 % 06/22/2024 7:47 PM FINISHER CARD TENDER [facility] % Immature Granulocytes 1 % 06/22/2024 7:47 PM FINISHER CARD TENDER [facility] NRBCs per 100 WBC 3(H) <1 /100 025 7:47 PM FINISHER CARD TENDER [facility] Absolute Neutrophils 10.6(H) 1.6 - 8.3 10e3/uL 06/22/2024 7:47 PM FINISHER CARD TENDER [facility] Absolute Lymphocytes 2.3 0.8 - 5.3 10e3/uL 06/22/2024 7:47 PM FINISHER CARD TENDER [facility] Absolute Monocytes 0.5 0.0 - 1.3 10e3/uL 06/22/2024 7:47 PM FINISHER CARD TENDER [facility] Absolute Eosinophils 0.1 0.0 - 0.7 10e3/uL 06/22/2024 7:47 PM FINISHER CARD TENDER [facility] Absolute Basophils 0.1 0.0 - 0.2 10e3/uL 06/22/2024 7:47 PM FINISHER CARD TENDER [facility] Absolute Immature Granulocytes 0.1 <=0.4 10e3/uL 06/22/2024 7:47 PM FINISHER CARD TENDER [facility] Absolute NRBCs 0.4 10e3/uL 06/22/2024 7:47 PM FINISHER CARD TENDER [facility] Blood VENOUS LINE / Unknown Venipuncture / Unknown 06/22/2024 7:10 PM FINISHER CARD TENDER 06/22/2024 7:16 PM FINISHER CARD TENDER us Lynne Varner MD LAB - BLOOD ORDERABLES Fin al Result [facility] [place] [facility] [address] [facility], [address] [place] [address], [facility] * (ABNORMAL) Reticulocyte count (06/22/2024 7:10 PM FINISHER CARD TENDER) Pathologist [facility] % Reticulocyte 5.3(H) 0.5 - 2.0 % 06/22/2024 7:23 PM FINISHER CARD TENDER [facility] Absolute Reticulocyte 0.130(H) 0.025 - 0.095 10e6/uL 06/22/2024 7:23 PM FINISHER CARD TENDER [facility] Blood VENOUS LINE / Unknown Venipuncture / Unknown 06/22/2024 7:10 PM FINISHER CARD TENDER 06/22/2024 7:16 PM FINISHER CARD TENDER Lynne Varner MD LAB - BLOOD ORDERABLES Fin al Result Performing Organization Address City/[facility]/ZIP Co de Phone Number [facility] [place] [facility] [address] [facility], Room [address] * HCG qualitative Blood (06/22/2024 7:10 PM FINISHER CARD TENDER) Pathologist [facility] hCG Serum Qualitative Negative Negative JARET 06/22/2024 7:45 PM FINISHER CARD TENDER [facility] Comment:This test is for scr eening purposes. Results should be interpreted along with the clinical picture. Confirmation testing is available if warranted by ordering [id number], HCG Quantitative . Blood VENOUS LINE / Unknown Venipuncture / Unknown 06/22/2024 7:10 PM FINISHER CARD TENDER 06/22/2024 7:26 PM FINISHER CARD TENDER Lynne Varner MD LAB - BLOOD ORDERABLES Fin al Result Performing Organization Address [facility] Co de Phone Number [facility] [place] [facility] [address] [facility], [address] * (ABNORMAL) Comprehensive metabolic panel (06/22/2024 7:10 PM FINISHER CARD TENDER) [facility] Sodium 137 135 - 145 mmol/L 06/22/2024 8:00 PM FINISHER CARD TENDER [facility] Potassium 4.5 3.4 - 5.3 mmol/L 06/22/2024 8:00 PM FINISHER CARD TENDER [facility] Carbon Dioxide (CO2) 21(L) 22 - 29 mmol/L 06/22/2024 8:00 PM FINISHER CARD TENDER [facility] Anion Gap 8 7 - 15 mmol/L 06/22/2024 8:00 PM FINISHER CARD TENDER [facility] Urea Nitrogen 12.1 6.0 - 20.0 mg/dL 06/22/2024 8:00 PM FINISHER CARD TENDER [facility] Creatinine 0.71 0.51 - 0.95 mg/dL 06/22/2024 8:00 PM FINISHER CARD TENDER [facility] GFR Estimate >90 >60 mL/min/1.7 3m2 06/22/2024 8:00 PM FINISHER CARD TENDER [facility] Comment:eGFR calculated us2020 CKD-EPI equation. Calcium 9.5 8.8 - 10.4 mg/dL 06/22/2024 8:00 PM FINISHER CARD TENDER [facility] Chloride 108(H) 98 - 107 mmol/L 06/22/2024 8:00 PM FINISHER CARD TENDER [facility] Glucose 100(H) 70 - 99 mg/dL 06/22/2024 8:00 PM FINISHER CARD TENDER [facility] Alkaline Phosphatase 119 40 - 150 U/L 06/22/2024 8:00 PM FINISHER CARD TENDER [facility] AST 62(H) 0 - 45 U/L 06/22/2024 8:00 PM FINISHER CARD TENDER [facility] ALT 54(H) 0 - 50 U/L 06/22/2024 8:00 PM FINISHER CARD TENDER [facility] Protein Total 7.8 6.4 - 8.3 g/dL 06/22/2024 8:00 PM FINISHER CARD TENDER [facility] Albumin 4.1 3.5 - 5.2 g/dL 06/22/2024 8:00 PM FINISHER CARD TENDER [facility] Bilirubin Total 1.4(H) <=1.2 mg/dL 06/22/2024 8:00 PM FINISHER CARD TENDER [facility] Blood VENOUS LINE / Unknown Venipuncture / Unknown 06/22/2024 7:10 PM FINISHER CARD TENDER 06/22/2024 7:16 PM FINISHER CARD TENDER us Lynne Varner MD LAB - BLOOD ORDERABLES Fin al Result [facility] [place] [facility] [address] [facility], [address] [place] [phone] documented in this encounter Visit [...] For 1 dose $Given 06/22/2024 7:19 PM FINISHER CARD TENDER 25 mg heparin lock flush 100 unit/mL injection 100 Units 100 Units, Intravenous, ONCE, On Citlali 06/22/24 at 2150, For 1 dose $Given 06/22/2024 9:53 PM FINISHER CARD TENDER 100 Units hydromorphone (DILAUDID) injection 2 mg 2 mg, Intravenous, EVERY 1 HOUR PRN, severe pain, Starting on [place] 06/22/24 at 1735, For 3 doses $Given 06/22/2024 9:33 PM FINISHER CARD TENDER 2 mg $Given 06/22/2024 8:34 PM FINISHER CARD TENDER 2 mg $Given 06/22/2024 7:20 PM FINISHER CARD TENDER 2 mg lactated ringers BOLUS 1,000 mL Intravenous, 1,000 mL, ONCE, at 1,000 mL/hr, Administer over 1 Hours, On [place]lali 06/22/24 at 1740, For 1 dose $New Bag 06/22/2024 7:19 PM FINISHER CARD TENDER 1,000 mLs 1000 mL/hr ondansetron (ZOFRAN) injection 4 mg 4 mg, Intravenous, EVERY 30 MIN PRN, nausea, vomiting, Administer over 2-5 Minutes, Starting on [place] 06/22/24 at 1735, For 3 doses, May repeat in 30 minutes as needed, up to 3 doses. $Given 06/22/2024 7:19 PM FINISHER CARD TENDER 4 mg documented in this encounter Active and Recently Administered Medications Times are shown in FINISHER CARD TENDER. Scheduled Medication Order 06/20/2024 06/21/2024 06/22/2024 diphenhydrAMINE [...] RN) documented in this encounter Care Teams Practical Ministries Professor Relationship Specialty Start Date End Date Veronica Joseph MD [address] [place] [address] PCP - General Family Medicine 06/18/24 Mor Ramsey Medical Student 04/03/24 Case Samuel MD [address] [place] [address], [address] [place] [address] Assigned Pediatric Specialist Provider 05/18/24 Juhi Benson, SOFIA Specialty Contract Assistant Hematology & Oncology 05/29/24 documented as of this encounter
--- OUTSIDE RECORDS SUMMARY | 2024-07-03 21:34 | XMS_ITS | Encounter Summary ---
Author Organization [facility] Address [address] [place] [address] Care Team Providers Care School Lunch Monitor Name Role Phone RoxyElvirac Unavailable Unavailable Case Samuel MD Unavailable [phone] Juhi Benson RN Unavailable Unavailable Veronica Joseph MD Primary Care Provider [phone] Reason for Visit * Reason Comments Sickle Cell Pain Crisis Pt reports pain in back and b/l legs Encounter Details Date Type Department Care Team (Late st Contact Info) Description 06/23/2024 6:03 PM [facility] [employer] - 06/23/2024 9:47 PM [facility] Emergency [facility] Emergency Department [address] [place] [phone] Dayna Crane MD [address] [address] Sickle cell disease with crisis (H) Discharge [...] file Legal Sex Female 8:25 AM VP [employer] Gender Identity Not on file Sexual Orientation Not on file documented as of this encounter Last Filed Vital Signs Vital Sign Reading Time Taken Comments Blood Pressure 114/66 06/23/2024 7:49 PM [facility] Pulse 100 06/23/2024 5:53 PM [facility] Temperature 36.7 C (98 F) 06/23/2024 7:49 PM [facility] Respiratory Rate 16 06/23/2024 7:49 PM [facility] Oxygen Saturation 99% 06/23/2024 7:49 PM [facility] Inhaled Oxygen Concentration - - Weight 52.2 kg (115 lb) 06/23/2024 5:53 PM [facility] Height 154.9 cm (5' 1) 06/23/2024 5:53 PM [facility] Body Mass Index 21.73 06/23/2024 5:53 PM [facility] documented in this encounter Discharge Instructions * Discharge Instructions* Dayna Crane MD - 06/23/2024 9:00 PM [facility] Please make an appointment to follow up with Your Primary Care Provider in 2-3 days. [facility] * Attachments The following attachments cannot [...] 05/01/2024 naloxone (NARCAN) 4 MG/0.1ML nasal spray [place] 1 spray (4 mg) into one nostril [...] Booker - 06/23/2024 6:12 PM CST Bed: [facility] Expected date: Expected time: Means of arrival: Comments: X3 monitor: [id number] [facility] * Melanie Menon, RN - 06/23/2024 5:54 [...] WDL WDL Cognitive/Neuro/Behavioral WDL Cognitive/Neuro/Behavioral WDL WDL [facility] documented in this encounter Plan of Treatment Upcoming Encounters Date Type Department Care Team (Late st Contact Info) Description 07/04/2024 9:00 AM CDT Lab [facility] Cancer [address] [phone] Case Samuel MD [address] [place] [address], [address] [place], [place] [address] 07/06/2024 8:[address] [facility] [address] [phone] Case Samuel MD [address] [place], [place] [address], [address] [place] [address] 07/10/2024 11:30 AM CDT Oncology Visit [facility] [address] [phone] Case Samuel MD [address] [facility] 484, [address] [place] [address] documented as of this encounter Goals Goal Patient Goal Type Associated Problems Recent Progress Patient-Stated? Author Pain Management General On track( 025 12:40 PM [facility]) Yes Juhi Benson, RN Note: Goal [...] PLATELETS AND DIFFERENTIAL STAT 06/23/2024 6:22 PM [facility] CBC WITH PLATELETS & DIFFERENTIAL STAT 06/23/2024 6:22 PM [facility] HCG QUALITATIVE STAT 06/23/2024 6:22 PM [facility] DIFFERENTIAL STAT 06/23/2024 6:22 PM [facility] COMPREHENSIVE METABOLIC PANEL STAT 06/23/2024 6:22 PM [facility] documented in this encounter Results * (ABNORMAL) Manual Differential (06/23/2024 6:22 PM [facility]) % Neutrophils 73 % 06/23/2024 7:05 PM [facility] % Lymphocytes 24 % 06/23/2024 7:05 PM [facility] % Monocytes 2 % 06/23/2024 7:05 PM [facility] % Eosinophils 0 % 06/23/2024 7:05 PM [facility] % Basophils 2 % 06/23/2024 7:05 PM [facility] NRBCs per 100 WBC 12(H) <=0 % 06/23/2024 7:05 PM [facility] Absolute Neutrophils 7.2 1.6 - 8.3 10e3/uL 06/23/2024 7:05 PM [facility] Absolute Lymphocytes 2.3 0.8 - 5.3 10e3/uL 06/23/2024 7:05 PM [facility] Absolute Monocytes 0.2 0.0 - 1.3 10e3/uL 06/23/2024 7:05 PM [facility] Absolute Eosinophils 0.0 0.0 - 0.7 10e3/uL 06/23/2024 7:05 PM [facility] Absolute Basophils 0.2 0.0 - 0.2 10e3/uL 06/23/2024 7:05 PM [facility] Absolute NRBCs 1.2(H) <=0.0 10e3/uL 025 7:05 PM [facility] RBC Morphology Confirmed RBC Indices 06/23/2024 7:05 PM [facility] Platelet Assessment Automated Count Confirmed. Platelet morphology is normal. Automated Count Confirmed. Platelet morphology is normal. 06/23/2024 7:05 PM [facility] Polychromasia Slight(A) None Seen 06/23/2024 7:05 PM [facility] Sickle Cells Slight(A) None Seen 06/23/2024 7:05 PM [facility] Target Cells Slight(A) None Seen 06/23/2024 7:05 PM [facility] Blood BLOOD SPECIMEN / Unknown Venipuncture / Unknown 06/23/2024 6:22 PM [facility] 06/23/2024 6:34 PM [facility] us Dayna Crane MD LAB - BLOOD ORDERABLES Final Re sult [facility] [place] [facility] [address] [facility], Room [address] [place] [phone] * (ABNORMAL) CBC with platelets and differential (06/23/2024 6:22 PM [facility]) WBC Count 9.8 4.0 - 11.0 10e3/uL 06/23/2024 6:45 PM [facility] RBC Count 2.49(L) 3.80 - 5.20 10e6/uL 06/23/2024 6:45 PM [facility] Hemoglobin 8.0(L) 11.7 - 15.7 g/dL 06/23/2024 6:45 PM [facility] Hematocrit 24.2(L) 35.0 - 47.0 % 06/23/2024 6:45 PM [facility] MCV 97 78 - 100 fL 06/23/2024 6:45 PM [facility] MCH 32.1 26.5 - 33.0 pg 06/23/2024 6:45 PM [facility] MCHC 33.1 31.5 - 36.5 g/dL 06/23/2024 6:45 PM [facility] RDW 18.8(H) 10.0 - 15.0 % 06/23/2024 6:45 PM [facility] Platelet Count 482(H) 150 - 450 10e3/uL 06/23/2024 6:45 PM [facility] Blood BLOOD SPECIMEN / Unknown Venipuncture / Unknown 06/23/2024 6:22 PM [facility] 06/23/2024 6:34 PM [facility] us Dayna Crane MD LAB - BLOOD ORDERABLES Final Re sult [facility] [place] [facility] [address] [facility], [address] [place] [address] * HCG qualitative Blood (06/23/2024 6:22 PM [facility]) hCG Serum Qualitative Negative Negative JARET 06/23/2024 6:49 PM [facility] Comment:This test is for scr eening purposes. Results should be interpreted along with the clinical picture. Confirmation testing is available if warranted by ordering [id number], HCG Quantitative . Blood BLOOD SPECIMEN / Unknown Venipuncture / Unknown 06/23/2024 6:22 PM [facility] 06/23/2024 6:38 PM [facility] us Dayna Crane MD LAB - BLOOD ORDERABLES Final Re sult [facility] [place] [facility] [address] [facility] [address] [facility], [address] [place] [address], [facility] * (ABNORMAL) Comprehensive metabolic panel (06/23/2024 6:22 PM [facility]) Sodium 140 135 - 145 mmol/L 06/23/2024 7:13 PM [facility] Potassium 4.3 3.4 - 5.3 mmol/L 06/23/2024 7:13 PM [facility] Carbon Dioxide (CO2) 24 22 - 29 mmol/L 06/23/2024 7:13 PM [facility] Anion Gap 7 7 - 15 mmol/L 06/23/2024 7:13 PM [facility] Urea Nitrogen 6.8 6.0 - 20.0 mg/dL 06/23/2024 7:13 PM [facility] Creatinine 0.61 0.51 - 0.95 mg/dL 06/23/2024 7:13 PM [facility] GFR Estimate >90 >60 mL/min/1.7 3m2 06/23/2024 7:13 PM [facility] Comment:eGFR calculated us2020 CKD-EPI equation. Calcium 8.8 8.8 - 10.4 mg/dL 06/23/2024 7:13 PM [facility] Chloride 109(H) 98 - 107 mmol/L 06/23/2024 7:13 PM [facility] Glucose 102(H) 70 - 99 mg/dL 06/23/2024 7:13 PM [facility] Alkaline Phosphatase 125 40 - 150 U/L 06/23/2024 7:13 PM [facility] AST 84(H) 0 - 45 U/L 06/23/2024 7:13 PM [facility] ALT 69(H) 0 - 50 U/L 06/23/2024 7:13 PM [facility] Protein Total 7.8 6.4 - 8.3 g/dL 06/23/2024 7:13 PM [facility] Albumin 4.2 3.5 - 5.2 g/dL 06/23/2024 7:13 PM [facility] Bilirubin Total 1.5(H) <=1.2 mg/dL 06/23/2024 7:13 PM [facility] Blood BLOOD SPECIMEN / Unknown Venipuncture / Unknown 06/23/2024 6:22 PM [facility] 06/23/2024 6:34 PM [facility] us Dayna Crane MD LAB - BLOOD ORDERABLES Final Re sult [facility] [place] [facility] [address] [facility], [address] [place] [address] documented in this encounter [...] For 1 dose $Given 06/23/2024 7:43 PM [facility] 25 mg heparin lock flush 100 unit/mL injection 100 Units 100 Units, Intravenous, ONCE, On Wed06/23/24 at 2100, For 1 dose $Given 06/23/2024 9:25 PM [facility] 100 Units hydromorphone (DILAUDID) injection 2 mg 2 mg, Intravenous, EVERY 1 HOUR PRN, severe pain, Starting on Wed06/23/24 at 1806, X 3 max $Given 06/23/2024 8:46 PM [facility] 2 mg $Given 06/23/2024 7:43 PM [facility] 2 mg $Given 06/23/2024 6:28 PM [facility] 2 mg sodium chloride 0.9% BOLUS 1,000 mL Intravenous, 1,000 mL, ONCE, at 1,000 mL/hr, Administer over 1 Hours, On Wed06/23/24 at 1810, For 1 dose $New Bag 06/23/2024 6:28 PM [facility] 1,000 mLs 1000 mL/hr documented in this encounter Active and Recently Administered Medications Times are shown in [facility]. Scheduled Medication Order 06/21/2024 06/22/2024 06/23/2024 diphenhydrAMINE [...] RN) documented in this encounter Care Teams School Lunch Monitor Relationship Specialty Start Date End Date Veronica Joseph MD [address] [facility] [place] [address] PCP - General Family Medicine 06/18/24 Mor Ramsey Medical Student 04/03/24 Case Samuel MD [address] [place] [address], [address] [place] [address] Assigned Pediatric Specialist Provider 05/18/24 Juhi Benson, SOFIA Specialty Greenskeeper Supervisor Hematology & Oncology 05/29/24 documented as of this encounter
--- OUTSIDE RECORDS SUMMARY | 2024-07-03 21:34 | XMS_ITS | Encounter Summary ---
Author Organization [facility] Address [address] [place] [address]. 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 Gender Identity Not on file Sexual Orientation Not on file documented as of this encounter Plan of Treatment Upcoming Encounters Date Type Department Care Team (Late st Contact Info) Description 07/04/2024 9:00 AM CDT Lab [facility] Cancer [address] [address] Case Samuel MD [address] [place], [place] [address], ROOM [address] [id number] 07/06/2024 8:00 AM CDT Appointment [facility] Advanced Treatment [address] [phone] Case Samuel MD [address] [place], [place] [address], ROOM [address] [address] 07/10/2024 11:30 AM CDT Oncology Visit [facility] [address] [address] Case Samuel MD [address] [place], [place] [address], ROOM [address] [id number] documented as of this encounter Goals Goal Patient Goal Type Associated Problems Recent Progress Patient-Stated? Author Pain Management General On track( 025 12:40 PM SLITTER AND CUTTER OPERATOR) Yes Juhi Benson, RN Note: Goal [...] on filedocumented in this encounter Care Teams Hog Raiser Relationship Specialty Start Date End Date Veronica Joseph MD [address] [place] [address] PCP - General Family Medicine 06/18/24 Mor Ramsey Medical Student 04/03/24 Case Samuel MD [address] [place] [address], [address] [place] [address] Assigned Pediatric Specialist Provider 05/18/24 Juhi Benson, RN Specialty Drafting Technician Hematology & Oncology 05/29/24 documented as of this encounter
--- OUTSIDE RECORDS SUMMARY | 2024-07-03 21:34 | XMS_ITS | Encounter Summary ---
Author Organization [facility] Address [address] [place] [address] Care Team Providers Care Aircraft Armorer Name Role Phone No Ref-Primary, Physician Primary Care Provider Mor Ramsey Unavailable Unavailable Case Samuel MD Unavailable [phone] Juhi Benson RN Unavailable Unavailable Reason for Visit * Reason Comments Sickle Cell Pain Crisis Encounter Details Date Type Department Care Team (Late st Contact Info) Description 06/11/2024 9:02 PM RETAIL SALES MERCHANDISER - 06/12/2024 1:57 AM [facility] Emergency [facility] Emergency Room [address] [place] [address] Iliana Weber MD [facility] [address] [place] [address] Sickle cell pain crisis (H) Discharge Disposition: [...] file Legal Sex Female 8:25 AM RETAIL SALES MERCHANDISER Gender Identity Not on file Sexual Orientation Not on file documented as of this encounter Last Filed Vital Signs Vital Sign Reading Time Taken Comments Blood Pressure 118/75 06/12/2024 12:45 AM RETAIL SALES MERCHANDISER Pulse 91 06/12/2024 12:45 AM RETAIL SALES MERCHANDISER Temperature 36.5 C (97.7 F) 06/11/2024 8:58 PM RETAIL SALES MERCHANDISER Respiratory Rate 19 06/12/2024 12:45 AM RETAIL SALES MERCHANDISER Oxygen Saturation 95% 06/12/2024 12:45 AM RETAIL SALES MERCHANDISER Inhaled Oxygen Concentration - - Weight 52.2 kg (115 lb) 06/11/2024 8:58 PM RETAIL SALES MERCHANDISER Height 154.9 cm (5' 1) 06/11/2024 8:58 PM RETAIL SALES MERCHANDISER Body Mass Index 21.73 06/11/2024 8:58 PM RETAIL SALES MERCHANDISER documented in this encounter Discharge Instructions * [...] 05/01/2024 naloxone (NARCAN) 4 MG/0.1ML nasal spray [place] 1 spray (4 mg) into one nostril [...] CST Gave handoff report to Niki BLACK IL SALES MERCHANDISER * Shane Santos RN - 06/11/2024 10:00 PM CST Pt drove here as seen on security footage. Notified Dr Weber, and ok to proceed with treatment plan as ordered. Pt was advised to arrange a ride home. IL SALES MERCHANDISER * Iliana Weber MD - 06/11/2024 9:08 [...] get infusion therapies frequently. Last seen at [facility] 06/11/2024 early this morning about [...] provider:Did you involve another provider (software consultant, MH, pharmacy, etc.)?: No Discharge. 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 Recently moved to [place] from [place], [place]. She is 1 of 9 [...] Connections: Socially Integrated (03/28/2024) Received from [facility] [email or web address] [facility] Social Connections Do you often feel lonely [...] dry. Normal skin color. Neuro: Speech clear. 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 Moves all extremities appropriately. Strength [...] Given normal axis. QTcis 453, QRS 78, [place] 158. As compared to previous EKG from June 05, 2024 T wave slightly flattened in 3 and aVF but otherwise no significant change. I have independently reviewed and interpreted the EKG(s) documented above. Iliana Weber M.D. Emergency Medicine [facility] EMERGENCY ROOM [address] [facility] [address] Dept: [phone] Iliana Weber MD 06/12/24 0149 IL SALES MERCHANDISER * Jennifer Muse RN - 06/11/2024 8:56 [...] WDL Cognitive/Neuro/Behavioral WDL Cognitive/Neuro/Behavioral WDL WDL IL SALES MERCHANDISER documented in this encounter Plan of Treatment Upcoming Encounters Date Type Department Care Team (Late st Contact Info) Description 07/04/2024 9:00 AM CDT Lab [facility] [address] [place] [address] Case Samuel MD [address] [place] [address], [address] [place] [address] 07/06/2024 8:00 AM CDT Appointment [facility] [address] [place] [address] Case Samuel MD [address] [facility] [address], [address] [place], [place] [address] 07/10/2024 11:30 AM CDT Oncology Visit [facility] [address] [place] [phone] Case Samuel MD [address] [facility] [address], [address] [place], [place] [address] documented as of this encounter Goals Goal Patient Goal Type Associated Problems Recent Progress Patient-Stated? Author Pain Management General On track( 025 12:40 PM RETAIL SALES MERCHANDISER) Yes Juhi Benson, RN Note: Goal Statement: [...] WITH MUSE [facility] STAT 06/11/2024 9:04 PM RETAIL SALES MERCHANDISER documented in this encounter Results * ECG 12-LEAD WITH MUSE ([facility]) (06/11/2024 9:04 PM RETAIL SALES MERCHANDISER) Systolic Blood Pressure mmHg RADIOLOGY RESULTS Diastolic Blood Pressure mmHg RADIOLOGY RESULTS Ventricular Rate 102 BPM RAD IOLOGY RESULTS Atrial Rate 102 BPM RADIOLOG Y RESULTS [place] Interval 158 ms RADIOLOG Y RESULTS QRS Duration 78 ms RADIOLO GY RESULTS QT 348 ms RADIOLOGY RESULTS QTc 453 ms RADIOLOGY RESULTS P [place] 39 degrees RADIOLOGY RESULTS R AXIS 66 degrees RADIOLOGY RESULTS T [place] 33 degrees RADIOLOGY RESULTS Interpretation ECG Sinus tachycardia Nonspecific T wave abnormality Abnormal ECG When compared with ECG of 05-Jun-2024 11:40, No significant change was found Confirmed by SEE ED PROVIDER NOTE FOR, ECG INTERPRETATION ([id number]), avid editor SELMA GARRISON ([id number]) on 06/11/2024 9:05:27 PM RADIOLOGY RESULTS 06/11/2024 9:04 PM RETAIL SALES MERCHANDISER 06/11/2024 9:05 PM RETAIL SALES MERCHANDISER us Deshawn Arredondo MD ECG ORDERABLES Edited [...] For 1 dose $Given 06/12/2024 1:32 AM RETAIL SALES MERCHANDISER 25 mg heparin lock flush 100 unit/mL [...] each port lumen $Given 06/12/2024 1:47 AM RETAIL SALES MERCHANDISER 5 mLs HYDROmorphone (DILAUDID) injection 2 mg 2 mg, Intravenous, EVERY 1 HOUR PRN, moderate pain, Starting on Wed06/11/24 at 2103, For 3 doses $Given 06/12/2024 12:23 AM RETAIL SALES MERCHANDISER 2 mg $Given 06/11/2024 11:16 PM RETAIL SALES MERCHANDISER 2 mg $Given 06/11/2024 10:09 PM RETAIL SALES MERCHANDISER 2 mg lactated ringers BOLUS 1,000 mL Intravenous, 1,000 mL, ONCE, at 500 mL/hr, Administer over 2 Hours, On 06/11/24 at 2130, For 1 dose $New Bag 06/11/2024 10:03 PM RETAIL SALES MERCHANDISER 1,000 mLs 500 mL/hr ondansetron (ZOFRAN) injection 8 mg 8 mg, Intravenous, ONCE, Administer over 2-5 Minutes, On 06/11/24 at 2130, For 1 dose $Given 06/11/2024 10:08 PM RETAIL SALES MERCHANDISER 8 mg sodium chloride (PF) 0.9% PF [...] Administered Medications Times are shown in RETAIL SALES MERCHANDISER. Scheduled Medication Order 06/10/2024 06/11/2024 06/12/2024 diphenhydrAMINE [...] draw. documented in this encounter Care Teams Aircraft Armorer Relationship Specialty Start Date End Date No Ref-Primary, Physician PCP - General 03/15/24 06/17/24 Mor Ramsey Medical Student 04/03/24 Case Samuel MD [address] [place] [address], [address] [place] [address] Assigned Pediatric Specialist Provider 05/18/24 Juhi Benson, SOFIA Specialty Counter Server Hematology & Oncology 05/29/24 documented as of this encounter
--- OUTSIDE RECORDS SUMMARY | 2024-07-03 21:34 | XMS_ITS | Encounter Summary ---
Author Organization [facility] Address [address] [place] [address]. 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 Call member services at your health plan with any benefit or coverage questions. READER Reason for Visit * Reason Comments Sickle Cell Pain Crisis * Auth/Cert Specialty Diagnoses / Procedures Referred By Contkameron t Referred To Contact EMERGENCY MEDICINE Diagnoses Acute chest pain Sickle cell pain crisis (H) [facility] Emergency Department [address] [place] [address] Phone: tel: Referral ID Status Reason Start Date Expiration Date Visits Re quested Visits Authorized [id number] 1 1 Encounter Details Date Type Department Care Team (Latest Contact Info) Description 06/12/2024 6:38 PM MAIL READER - 06/15/2024 10:48 AM MAIL READER Hospital Encounter [facility] Emergency Department [address] [place] [phone] Abdelrahman Goddard MD [address] [place] [address] Andres Jain DO Duffy, Briar, MD [address] [facility] [address] [place] [address] 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) [...] on file Legal Sex Female 8:25 AM MAIL READER Gender Identity Not on file Sexual Orientation Not on file documented as of this encounter Last Filed Vital Signs Vital Sign Reading Time Taken Comments Blood Pressure 99/64 06/15/2024 6:10 AM MAIL READER Pulse 75 06/15/2024 6:10 AM MAIL READER Temperature 36.7 C (98 F) 06/15/2024 6:10 AM MAIL READER Respiratory Rate 16 06/15/2024 6:10 AM MAIL READER Oxygen Saturation 100% 06/15/2024 6:10 AM MAIL READER Inhaled Oxygen Concentration - - Weight - - Height - - Body Mass Index - - documented in this encounter Discharge Summaries * Rl Elias MD - 06/15/2024 8:58 AM CST [facility] Discharge Summary - Medicine & Pediatrics Date of Admission: 06/12/2024 Date of Discharge: 06/15/2024 Discharging Provider: Dr Rl Elias, Dr German Hall Discharge Service: Medicine Service, [facility] TEAM 1 Discharge Diagnoses Acute sickle [...] 5 day course of antibiotics - Continue MEDICAL VAN DRIVER hydroxyurea - Continue MEDICAL VAN DRIVER folic acid - Continue albuterol inhaler QID given in the ED - Patient should follow up with her PCP upon discharge in 2-3 weeks - Patient should restart pain plan as taking at home with PO hydromorphone 2 mg Q6H PRN for pain upon discharge #Anxiety #Nausea - Continue MEDICAL VAN DRIVER Fluoxetine 10 mg daily Consultations This Hospital Stay HEMATOLOGY ADULT IP CONSULT CARE MANAGEMENT / SOCIAL WORK IP CONSULT Code Status Full Code The patient was discussed with Dr. Hall. MD Oliver LANGLEY [address] [place] [address] EMERGENCY DEPARTMENT [address] [facility] [phone] Physical Exam Vital Signs: Temp: 98 ??F [...] your primary care provider & your primary Eco Industrial Development Consultant as indicated. Activity Your activity upon discharge: [...] E-Prescribe naloxone (NARCAN) 4 MG/0.1ML nasal spray Garwood 1 spray (4 mg) into one nostril [...] German Hall MD at 06/22/2024 12:17 PM MAIL READER READER READER Associated attestation - German Hall MD - 06/22/2024 12:17 PM MAIL READER Attestation: This patient has been seen and [...] 05/01/2024 naloxone (NARCAN) 4 MG/0.1ML nasal spray Garwood 1 spray (4 mg) into one nostril [...] Overall, I spent 35 minutes today (DOS) [id number] and/or coordinating care as documented above and specifically listed as below: --Reviewing documentation related to patient's history and this current admission available in [employer] --Review and clinical interpretation of pertinent laboratory test results and radiology reports from this admission --Discussion of the patient's case with the members of the Hematology Consult Team --Discussion with the patient --Documentation in the electronic health record READER * Rl Elias MD - 06/14/2024 7:08 [...] Service (when I saw the patient): 06/14/24 [facility] Progress Note - Medicine Service, [facility] Date of Admission: [...] 7-9, most recent Hbg 8.8 on 06/07 MEDICAL VAN DRIVER. Hb.5 -> 6.4 -> 6.8 -> 6.9 Plan: - Blood cultures pending x2 - NGTD - CTM hemoglobin daily - Ordered Voltaren gel, lidocaine patches, and icy hot PRN - Continue Ceftriaxone and Azithromycin for ppx (06/12 -*), consider transition to PO this afternoon - Continue MEDICAL VAN DRIVER hydroxyurea - Continue MEDICAL VAN DRIVER folic acid - Continue IS - type and screen ordered, consented for blood on 06/13 - no indication for transfusion unless hemodynamically unstable - Hematology consulted, appreciate recs - Hydromorphone 2 mg IV Q2H scheduled--titrate within 24-48 hours - Maintenance LR - Transfusion not recommended at this time - albuterol inhaler q6h, zofran, benadryl, docusate, senna PRN #Anxiety #Nausea - Continue MEDICAL VAN DRIVER Fluoxetine - Benadryl PRN per Pain Plan [...] Carvajal, MS3 Medical Student Medicine Service, [facility] TEAM [address] [place] [address] Securely message with Zilyo (more info) Text page via [facility] Mobile Paging/Directory See signed in provider for up [...] German Hall MD at 06/19/2024 8:50 AM MAIL READER READER READER READER Associated attestation - German Hall MD - 06/19/2024 8:50 AM MAIL READER Attestation: This patient has been seen and [...] care as documented in t he note. LR ELIAS MD PGY2 Date of Service (when I saw the patient): 06/13/24 [facility] Progress Note - Medicine Service, [facility] TEAM 1 Date of Admission: 06/12/2024 [...] 7-9, most recent Hbg 8.8 on 06/07 MEDICAL VAN DRIVER. Hb.5 -> 6.4 Plan: -Blood cultures pending x2 -CTM hemoglobin daily -Continue Ceftriaxone and Azithromycin for ppx (06/12 -*) -Continue MEDICAL VAN DRIVER hydroxyurea -Continue MEDICAL VAN DRIVER folic acid - type and screen ordered, consented for blood - no indication for transfusion unless hemodynamic instability - Hematology consulted, appreciate recs -Hydromorphone 2 mg IV Q3H scheduled--titrate within 24-48 hours -Maintenance LR -Transfusion not recommended at this time - zofran, benadryl, docusate, senna PRN #Anxiety #Nausea -Continue MEDICAL VAN DRIVER Fluoxetine -Benadryl PRN per Pain Plan -Zofran [...] Carvajal, MS3 Medical Student Medicine Service, [facility] TEAM [address] [place] [address] Securely message with Zilyo (more info) Text page via [employer] Paging/Directory See signed in provider for up [...] German Hall MD at 06/14/2024 8:25 AM MAIL READER READER READER Associated attestation - German Hall MD - 06/14/2024 8:25 AM MAIL READER Attestation: This patient has been seen and evaluated by me, German Hall MD. Discussed with the house staff team or resident(s) and agree with the findings and plan in this note. I have reviewed today's Medications, Vital Signs, and Labs. DOS 06/13 * Mary Flores MD - 06/12/2024 8:20 PM CST house calls nurse practitioner Hematology fellow note 29F Sickle cell disease [...] Flores MD MS Hematology fellow, PGY5 Pager: [phone] Cosigned by Kirstin Long MD at 06/13/2024 7:25 AM MAIL READER READER READER READER Associated attestation - Kirstin Long MD - 06/13/2024 7:25 AM MAIL READER Physician Attestation I discussed patient overnight with fellow five piece expansion maker hand. I agree with plan as outlined. I did not see thepatient on this date. Kirstin Long MD/PhD documented in this encounter H&P Notes * Laquita Kelley MD - 06/12/2024 9:37 PM CST [facility] History and Physical - Medicine Service, [facility] TEAM Date of Admission: 06/12/2024 Assessment [...] of avascular necrosis of left hip -Continue MEDICAL VAN DRIVER hydroxyurea -Continue MEDICAL VAN DRIVER folic acid -Transfuse for Hb<7 #Stroke reported [...] Jain . Laquita Kelley MD Medicine Service, [facility] Securely message with Zilyo (more info) Text page via [facility] Paging/Directory See signed in provider for 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, had port-[facility]-cath in [facility] Functional asplenia Gallstones Hb-SS disease [...] 4 MG/0.1ML nasal spray No No Sig: Garwood 1 spray (4 mg) into one nostril [...] Andres Jain DO at 06/12/2024 10:27 PM MAIL READER READER READER READER READER Associated attestation - Andres Jain DO - 06/12/2024 10:27 PM MAIL READER Physician Attestation I saw this patient with [...] Communication Assessment Patient's communication style: spoken language (Botswanan or Bilingual) Cognitive Cognitive/Neuro/Behavioral: WDL Living Environment: [...] Depression: Not at risk (04/11/2024) Received from [facility] PHQ-2 PHQ-2 TOTAL SCORE: 1 Housing Stability: [...] Social Connections: Socially Integrated (03/28/2024) Received from [facility] Social Connections Do you often feel lonely or isolated from those around you?: 0 Health Literacy: Not on file Functional Status: Prior to admission patient needed assistance: Dependent ADLs:: Independent Dependent IADLs:: Independent Mental Health Status: Mental Health Status: No Current Concerns Chemical Dependency Status: Chemical Dependency Status: No Current Concerns Values/Beliefs: Spiritual, Cultural Beliefs, Bahai Practices, Values that affect care: no Discussed [...] Next Steps: CC will continue to follow. Kathreyn Carter RN, PHN, BSN Float Nurse Sales Solutions Representative Covering for Unit ED Phone [phone] READER * Kirstin Long MD - 06/13/2024 10:17 AM CSTAssociated Order(s): HEMATOLOGY ADULT IP CONSULT Images from the original note were not included. Hematology Consult Note Date of Service: 06/13/2024 Patient: Gianna Hernández Admission Date: 06/12/2024 Hospital Day # 1 Hematology Diagnosis: Sickle Cell Disease - HbSS Primary Outpatient [employer] Consultant: Dr Samuel Current Treatment Plan: Inpatient: Opioid: 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, [facility] Functional asplenia Gallstones Hb-SS disease [...] 11 naloxone (NARCAN) 4 MG/0.1ML nasal spray Garwood 1 spray (4 mg) into one nostril [...] IJ central venous catheter tip low SVC. READER documented in this encounter ED Notes * Juhi Crump RN - 06/12/2024 6:55 PM CST Bed: [facility] Expected date: Expected time: Means of arrival: Comments: SICK READER * Lebron Aponte RN - 06/12/2024 6:34 PM CST Pt ambulatory to triage with CC of sickle cell pain in the L upper anterior chest. Was seen for this at [facility] last night. Reports interventions at [facility] were helpful, however pain has returned. Patient reports taking 4mg po Dilaudid at 1500 with partial relief of pain but is still severe. Contacted women's lacrosse coach and was instructed to come to [facility]. Reports SOB a little bit. It hurts to take a deep breath. Denies dizziness. Triage Assessment (Adult) Row Name 06/12/24 5118 Triage Assessment Airway WDL WDL Respiratory WDL Respiratory WDL WDL Skin Circulation/Temperature WDL Skin Circulation/Temperature WDL WDL Cardiac WDL Cardiac WDL X;chest pain Chest Pain Assessment Chest Pain Location anterior chest, left Peripheral/Neurovascular WDL Peripheral Neurovascular WDL WDL Cognitive/Neuro/Behavioral WDL Cognitive/Neuro/Behavioral WDL WDL Lester Coma Scale Best Eye Response 4-->(E4) spontaneous Best Motor Response 6-->(M6) obeys commands Best Verbal Response 5-->(V5) oriented Harrison Coma Scale Score 15 READER * Abdelrahman Goddard MD - 06/12/2024 6:20 PM CST Images from the original note were not included. [facility] [place] EM[facility]ENCY DEPARTMENT ([facility]) 06/12/24 ED PROVIDER NOTE History No [...] from [place] Sickle Cell Disease History Primary Eco Industrial Development Consultant/RECREATIONAL COUNSELOR/PA: Lizzie Genotype: SS Acute Pain Crisis Treatment: 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, [facility] Functional asplenia Gallstones Hb-SS disease [...] chest pain Rhythm: normal sinus Rate: 94BPM Rex: Normal Ectopy: none Conduction: normal ST Segments/ [...] BPM Atrial Rate 102 BPM WA Interval 158 ms QRS Duration 78 ms QT 348 ms QTc 453 ms P Rex 39 degrees R AXIS 66 degrees T Rex 33 degrees Interpretation ECG Sinus tachycardia Nonspecific T wave abnormality Abnormal ECG When compared with ECG of 05-Jun-2024 11:40, No significant change was found Confirmed by SEE ED PROVIDER NOTE FOR, ECG INTERPRETATION ([id number]), editorial intern SELMA GARRISON ([id number]) on 06/11/2024 9:05:27 PM [...] Hernadez, am serving as a trained medical safety director to document services personally performed by Abdelrahman Goddard MD, based on the provider's statements to me. I, Abdelrahman Goddard MD, was physically present and have reviewed and verified the accuracy of this note documented by Jovanny Hernadez. Abdelrahman Goddard MD [facility] EMERGENCY DEPARTMENT 06/12/2024 Abdelrahman Goddard MD 06/12/242023 READER documented in this encounter Miscellaneous Notes * Plan of Care - Clay Avina RN - 06/15/2024 9:55 AM CST Goal Outcome Evaluation: Plan of Care Reviewed With: patient Overall Patient Progress: improving 4x A/O. VSS. RA. Independent. AVS reviewed, questions answered. Port de accessed with saline flush and heparin locked. READER * Plan of Care - Kathy Levy RN - 06/15/2024 6:22 AM CST Goal Outcome Evaluation: Plan of Care Reviewed With: patient Overall Patient Progress: improving Pt is alert anf oriented x4. VSS, on room air with no SOB noted. On pain management for sickle cellcrisis. Tolerating diet well with no n/v. L chest port infusing intermittent IV ABT. Voiding well. Last BM MEDICAL VAN DRIVER. Pt is up ad chandler. Will continue with plan of care. READER * Plan of Care - Clay Avina RN - 06/14/2024 5:02 PM CST Goal Outcome Evaluation: Plan of Care Reviewed With: patient Overall Patient Progress: improving 4x A/O. VSS. Independent. Pain controlled with schedule q2hr IV dilaudid. Tolerating regular diet. Voiding spontaneously. Had nausea in AM, relieved with Zofran. Port SL. READER * Pharmacy-Admission Medication History - Lorenza Valdes - 06/14/2024 11:19 AM CST Manager Consumer Insights Admission Medication History Admission medication history is complete. The information provided in this note is only as accurateas the sources available at the time of the update. Information Source(s): Patient and CareEverywhere/SureScripts via in-person Pertinent Information: Medication reconciliation completed at bedside with patient. Patient was a good historian of her medication names, doses, frequencies, and last doses. Changes made to MEDICAL VAN DRIVER medication list: Added: Epi-pen: patient has pen available, but has not used recently. Ibuprofen: OTC product used PRN for pain. Benadryl: OTC product used PRN for itching due to hydromorphone. Deleted: None Changed: None Allergies reviewed with patient and updates made in EHR: yes Medication History Completed By: Lorenza Valdes 06/14/2024 11:19 AM MEDICAL VAN DRIVER Med List Medication Sig Last Dose/Taking diphenhydrAMINE [...] Morning naloxone (NARCAN) 4 MG/0.1ML nasal spray Garwood 1 spray (4 mg) into one nostril alternating nostrilsas needed for opioid reversal (for opiate overdose if not breathing and unconscious. have your family member watch video on how to use/read information sheet). every 2-3 minutes until assistance arrives Taking As Needed Cosigned by Terrell Fernandez RPH at 06/15/2024 10:33 AM MAIL READER READER READER Associated attestation - Terrell Fernandez RPH - 06/15/2024 10:33 AM MAIL READER I have read and agree with the student's note. Terrell Fernandez, PGY-1 Rental Car Deliverer * Provider Notification - Kiki Caal RN - 06/13/2024 7:27 PM MAIL READER Notified providers Nivia Carvajal, Laquita Kelley and Rl Elias of critical Hgb 6.8 at 1920. No new orders READER * Plan of Care - Katheryn Carter RN - 06/13/2024 12:44 PM CST Goal Outcome Evaluation: Plan of Care Reviewed With: patient Overall Patient Progress: improvingOverall Patient Progress: improving Outcome Evaluation: Plan: TBD Katheryn Carter RN, PHN, BSN Float Nurse Sales Solutions Representative Covering for Unit ED Phone [phone] READER * Plan of Care - Shauna Cuadra [...] with POC. Notify primary team with changes. READER documented in this encounter Plan of Treatment Upcoming Encounters Date Type Department Care Team (Late st Contact Info) Description 07/04/2024 9:00 AM CDT Lab [facility] [address] [phone] Case Samuel MD [address] [place] [address], [address] [place], [place] [phone] 07/06/2024 8:00 AM CDT Appointment [facility] [address] [phone] Case Samuel MD [address] [place] [address], [address] [place], [place] [address] 07/10/2024 11:30 AM CDT Oncology Visit [facility] [address] [address] Case Samuel MD [address] [place] [address], [address] [place], [place] [phone] Scheduled Referrals Name Type Priority Associated Diagnoses Orde r Schedule Hospital to Primary Care - Establish PCP Referral Referral Priority: 1-2 Weeks 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 Author Pain Management General On track( 025 12:40 PM MAIL READER) Yes Juhi Benson, RN Note: Goal Statement: [...] PLATELETS AND DIFFERENTIAL STAT 06/15/2024 6:09 AM MAIL READER CBC WITH PLATELETS & DIFFERENTIAL STAT 06/15/2024 6:09 AM MAIL READER BASIC METABOLIC PANEL STAT 06/15/2024 6:09 AM MAIL READER XR CHEST PORT 1 VIEW STAT 06/14/2024 8:46 AM MAIL READER BASIC METABOLIC PANEL STAT 06/14/2024 7:08 AM MAIL READER CBC WITH PLATELETS STAT 06/14/2024 7: 08 AM MAIL READER CBC WITH PLATELETS STAT 06/13/2024 6: 32 PM MAIL READER RBC AND PLATELET MORPHOLOGY STAT 06/13/2024 6:00 AM MAIL READER CBC WITH PLATELETS AND DIFFERENTIAL STAT 06/13/2024 6:00 AM MAIL READER CBC WITH PLATELETS & DIFFERENTIAL STAT 06/13/2024 6:00 AM MAIL READER BASIC METABOLIC PANEL STAT 06/13/2024 5:59 AM MAIL READER RESPIRATORY PANEL PCR STAT 06/12/2024 9:34 PM MAIL READER BLOOD CULTURE STAT 06/12/2024 8:46 PM MAIL READER BLOOD CULTURE STAT 06/12/2024 8:46 PM MAIL READER XR CHEST 2 VIEWS STAT 06/12/2024 7:38 PM MAIL READER RBC AND PLATELET MORPHOLOGY STAT 06/12/2024 7:17 PM MAIL READER CBC WITH PLATELETS AND DIFFERENTIAL STAT 06/12/2024 7:17 PM MAIL READER TYPE AND SCREEN, ADULT Routine 06/12/2024 7:17 PM MAIL READER TROPONIN T, HIGH SENSITIVITY STAT 06/12/2024 7:17 PM MAIL READER CBC WITH PLATELETS & DIFFERENTIAL STAT 06/12/2024 7:17 PM MAIL READER INR STAT 06/12/2024 7:17 PM MAIL READER BLOOD GAS VENOUS STAT 06/12/2024 7:17 PM MAIL READER ABO/RH TYPE AND SCREEN Add-On 06/12/2024 7:17 PM MAIL READER BASIC METABOLIC PANEL STAT 06/12/2024 7:17 PM MAIL READER EKG 12-LEAD, TRACING ONLY STAT 06/12/2024 6:37 PM MAIL READER documented in this encounter Results * (ABNORMAL) CBC with platelets and differential (06/15/2024 6:09 AM MAIL READER) [facility] WBC Count 11.8(H) 4.0 - 11.0 10e3/uL 06/15/2024 6:36 AM MAIL READER [facility] RBC Count 2.27(L) 3.80 - 5.20 10e6/uL 06/15/2024 6:36 AM MAIL READER [facility] Hemoglobin 7.2(L) 11.7 - 15.7 g/dL 06/15/2024 6:36 AM MAIL READER [facility] Hematocrit 20.4(L) 35.0 - 47.0 % 06/15/2024 6:36 AM MAIL READER [facility] MCV 90 78 - 100 fL 06/15/2024 6:36 AM MAIL READER [facility] MCH 31.7 26.5 - 33.0 pg 06/15/2024 6:36 AM MAIL READER [facility] MCHC 35.3 31.5 - 36.5 g/dL 06/15/2024 6:36 AM MAIL READER [facility] RDW 19.0(H) 10.0 - 15.0 % 06/15/2024 6:36 AM MAIL READER [facility] Platelet Count 500(H) 150 - 450 10e3/uL 06/15/2024 6:36 AM MAIL READER [facility] % Neutrophils 54 % 06/15/2024 6:36 AM MAIL READER [facility] % Lymphocytes 31 % 06/15/2024 6:36 AM MAIL READER [facility] % Monocytes 9 % 06/15/2024 6:36 AM MAIL READER [facility] % Eosinophils 5 % 06/15/2024 6:36 AM MAIL READER [facility] % Basophils 2 % 06/15/2024 6:36 AM MAIL READER [facility] % Immature Granulocytes 1 % 06/15/2024 6:36 AM MAIL READER [facility] NRBCs per 100 WBC 2(H) <1 /100 025 6:36 AM MAIL READER [facility] Absolute Neutrophils 6.3 1.6 - 8.3 10e3/uL 06/15/2024 6:36 AM MAIL READER [facility] Absolute Lymphocytes 3.6 0.8 - 5.3 10e3/uL 06/15/2024 6:36 AM MAIL READER [facility] Absolute Monocytes 1.0 0.0 - 1.3 10e3/uL 06/15/2024 6:36 AM MAIL READER [facility] Absolute Eosinophils 0.6 0.0 - 0.7 10e3/uL 06/15/2024 6:36 AM MAIL READER [facility] Absolute Basophils 0.2 0.0 - 0.2 10e3/uL 06/15/2024 6:36 AM MAIL READER [facility] Absolute Immature Granulocytes 0.1 <=0.4 10e3/uL 06/15/2024 6:36 AM MAIL READER [facility] Absolute NRBCs 0.2 10e3/uL 06/15/2024 6:36 AM MAIL READER [facility] Blood BLOOD SPECIMEN / Unknown IVAD (Port) / Unknown 06/15/2024 6:09 AM MAIL READER 06/15/2024 6:18 AM MAIL READER Rl Elias MD LAB - BLOOD ORDER SYD Final Result [facility] [place] [facility] [address] [facility], [address] [place] [address] * (ABNORMAL) Basic metabolic panel (06/15/2024 6:09 AM MAIL READER) Sodium 136 135 - 145 mmol/L 06/15/2024 7:13 AM MAIL READER [facility] Potassium 4.4 3.4 - 5.3 mmol/L 06/15/2024 7:13 AM MAIL READER [facility] Chloride 104 98 - 107 mmol/L 06/15/2024 7:13 AM MAIL READER [facility] Carbon Dioxide (CO2) 21(L) 22 - 29 mmol/L 06/15/2024 7:13 AM MAIL READER [facility] Anion Gap 11 7 - 15 mmol/L 06/15/2024 7:13 AM MAIL READER [facility] Urea Nitrogen 10.1 6.0 - 20.0 mg/dL 06/15/2024 7:13 AM MAIL READER [facility] Creatinine 0.65 0.51 - 0.95 mg/dL 06/15/2024 7:13 AM MAIL READER [facility] GFR Estimate >90 >60 mL/min/1.7 3m2 06/15/2024 7:13 AM MAIL READER [facility] Comment:eGFR calculated us2020 CKD-EPI equation. Calcium 8.9 8.8 - 10.4 mg/dL 06/15/2024 7:13 AM MAIL READER [facility] Glucose 104(H) 70 - 99 mg/dL 06/15/2024 7:13 AM MAIL READER [facility] Blood BLOOD SPECIMEN / Unknown IVAD (Port) / Unknown 06/15/2024 6:09 AM MAIL READER 06/15/2024 6:16 AM MAIL READER Rl Elias MD LAB - BLOOD ORDER SYD Final Result [facility] [address] [facility] Unit [facility], Room [address] [phone] * XR Chest Port 1 View (06/14/2024 8:46 AM MAIL READER) Anatomical Region Laterality Modality Chest Digital Radiogra phy Impressions 06/14/2024 8:59 AM MAIL READER Impression: Further increase in ill-defined opacity projecting over the right lower lung concerning for pneumonia. MARIO ALBERTO BLACKWOOD MD Narrative 06/14/2024 8:59 AM MAIL READER Exam: XR CHEST PORT 1 VIEW, 06/14/2024 [...] (ABNORMAL) CBC with platelets (06/14/2024 7:08 AM MAIL READER) [facility] WBC Count 13.4(H) 4.0 - 11.0 10e3/uL 06/14/2024 7:46 AM MAIL READER [facility] RBC Count 2.30(L) 3.80 - 5.20 10e6/uL 06/14/2024 7:46 AM MAIL READER [facility] Hemoglobin 6.9(LL) 11.7 - 15.7 g/dL 06/14/2024 7:46 AM MAIL READER [facility] Hematocrit 21.6(L) 35.0 - 47.0 % 06/14/2024 7:46 AM MAIL READER [facility] MCV 94 78 - 100 fL 06/14/2024 7:46 AM MAIL READER [facility] MCH 30.0 26.5 - 33.0 pg 06/14/2024 7:46 AM MAIL READER [facility] MCHC 31.9 31.5 - 36.5 g/dL 06/14/2024 7:46 AM MAIL READER [facility] RDW 19.4(H) 10.0 - 15.0 % 06/14/2024 7:46 AM MAIL READER [facility] Platelet Count 501(H) 150 - 450 10e3/uL 06/14/2024 7:46 AM MAIL READER [facility] Blood BLOOD SPECIMEN / Unknown Venipuncture / Unknown 06/14/2024 7:08 AM MAIL READER 06/14/2024 7:22 AM MAIL READER us Rl Elias MD LAB - BLOOD ORDER SYD Final Result [facility] [place] [facility] [address] [facility], [address] [place] [address], [facility] * (ABNORMAL) Basic metabolic panel (06/14/2024 7:08 AM MAIL READER) [facility] Sodium 136 135 - 145 mmol/L 06/14/2024 7:57 AM MAIL READER [facility] Potassium 4.2 3.4 - 5.3 mmol/L 06/14/2024 7:57 AM MAIL READER [facility] Chloride 107 98 - 107 mmol/L 06/14/2024 7:57 AM MAIL READER [facility] Carbon Dioxide (CO2) 20(L) 22 - 29 mmol/L 06/14/2024 7:57 AM MAIL READER [facility] Anion Gap 9 7 - 15 mmol/L 06/14/2024 7:57 AM MAIL READER [facility] Urea Nitrogen 6.5 6.0 - 20.0 mg/dL 06/14/2024 7:57 AM MAIL READER [facility] Creatinine 0.71 0.51 - 0.95 mg/dL 06/14/2024 7:57 AM MAIL READER [facility] GFR Estimate >90 >60 mL/min/1.7 3m2 06/14/2024 7:57 AM MAIL READER [facility] Comment:eGFR calculated 2020 CKD-EPI equation. Calcium 8.9 8.8 - 10.4 mg/dL 06/14/2024 7:57 AM MAIL READER [facility] Glucose 92 70 - 99 mg/dL 06/14/2024 7:57 AM MAIL READER [facility] Blood BLOOD SPECIMEN / Unknown Venipuncture / Unknown 06/14/2024 7:08 AM MAIL READER 06/14/2024 7:22 AM MAIL READER us Rl Elias MD LAB - BLOOD ORDER SYD Final Result [facility] [place] [facility] [address] [facility], [address] [place] [phone] * (ABNORMAL) CBC with platelets (06/13/2024 6:32 PM MAIL READER) WBC Count 15.3(H) 4.0 - 11.0 10e3/uL 06/13/2024 7:10 PM MAIL READER [facility] RBC Count 2.21(L) 3.80 - 5.20 10e6/uL 06/13/2024 7:10 PM MAIL READER [facility] Hemoglobin 6.8(LL) 11.7 - 15.7 g/dL 06/13/2024 7:10 PM MAIL READER [facility] Hematocrit 20.8(L) 35.0 - 47.0 % 06/13/2024 7:10 PM MAIL READER [facility] MCV 94 78 - 100 fL 06/13/2024 7:10 PM MAIL READER [facility] MCH 30.8 26.5 - 33.0 pg 06/13/2024 7:10 PM MAIL READER [facility] MCHC 32.7 31.5 - 36.5 g/dL 06/13/2024 7:10 PM MAIL READER [facility] RDW 19.6(H) 10.0 - 15.0 % 06/13/2024 7:10 PM MAIL READER [facility] Platelet Count 495(H) 150 - 450 10e3/uL 06/13/2024 7:10 PM MAIL READER [facility] Blood CENTRAL VENOUS CATHETER / Unknown VAD(CVC, PICC) / Unknown 06/13/2024 6:32 PM MAIL READER 06/13/2024 6:52 PM MAIL READER Rl Elias MD LAB - BLOOD ORDER SYD Final Result [facility] [place] [facility] [address] [facility], [address] [phone] * (ABNORMAL) RBC and Platelet Morphology (06/13/2024 6:00 AM MAIL READER) RBC Morphology Confirmed RBC Indices 06/13/2024 3:45 PM MAIL READER [facility] Platelet Assessment Automated Count Confirmed. Platelet morphology is normal. Automated Count Confirmed. Platelet morphology is normal. 06/13/2024 3:45 PM MAIL READER [facility] Polychromasia Moderate(A) None Seen 06/13/2024 3:45 PM MAIL READER [facility] Sickle Cells Moderate(A) None Seen 06/13/2024 3:45 PM MAIL READER [facility] Target Cells Moderate(A) None Seen 06/13/2024 3:45 PM MAIL READER [facility] Pathologist Review Comments (Blood) Sickle shaped red blood cells are present compatible with patient's history of sickle cell disease. [place] bodies are present compatible with hyposplenic blood picture. There is increased lymphocytes; however, the morphology of lymphocytes is polymorphous. Follow up CBC, diff for resolution of this findings is recommended. Danny Martinez MD on 06/13/2024 at 3:44 PM 06/13/2024 3:45 [address] [facility] Comment:This is an appended report. These results have been appended to a previously final verified report. Blood VENOUS LINE / Unknown IVAD (Port) / Unknown 06/13/2024 6:00 AM MAIL READER 06/13/2024 6:16 AM MAIL READER us Laquita Kelley MD LAB - BLOOD ORDERABLES Edited R esult - Final SPECIALTY LABS Specialty Lab [address] [facility] [address], [address] [place] [phone], [facility] [place] [facility] [address] [facility] [address], [address] [place] [address], [facility] * (ABNORMAL) CBC with platelets and differential (06/13/2024 6:00 AM MAIL READER) WBC Count 17.0(H) 4.0 - 11.0 10e3/uL 06/13/2024 9:51 AM MAIL READER [facility] RBC Count 2.11(L) 3.80 - 5.20 10e6/uL 06/13/2024 9:51 AM MAIL READER [facility] Hemoglobin 6.4(LL) 11.7 - 15.7 g/dL 06/13/2024 9:51 AM MAIL READER [facility] Hematocrit 20.3(L) 35.0 - 47.0 % 06/13/2024 9:51 AM MAIL READER [facility] MCV 96 78 - 100 fL 06/13/2024 9:51 AM MAIL READER [facility] MCH 30.3 26.5 - 33.0 pg 06/13/2024 9:51 AM MAIL READER [facility] MCHC 31.5 31.5 - 36.5 g/dL 06/13/2024 9:51 AM MAIL READER [facility] RDW 19.8(H) 10.0 - 15.0 % 06/13/2024 9:51 AM MAIL READER [facility] Platelet Count 458(H) 150 - 450 10e3/uL 06/13/2024 9:51 AM MAIL READER [facility] % Neutrophils 40 % 06/13/2024 9:51 AM MAIL READER [facility] % Lymphocytes 42 % 06/13/2024 9:51 AM MAIL READER [facility] % Monocytes 13 % 06/13/2024 9:51 AM MAIL READER [facility] % Eosinophils 3 % 06/13/2024 9:51 AM MAIL READER [facility] % Basophils 1 % 06/13/2024 9:51 AM MAIL READER [facility] % Immature Granulocytes 1 % 06/13/2024 9:51 AM MAIL READER [facility] NRBCs per 100 WBC 0 <1 /100 025 9:51 AM MAIL READER [facility] Absolute Neutrophils 6.7 1.6 - 8.3 10e3/uL 06/13/2024 9:51 AM MAIL READER [facility] Absolute Lymphocytes 7.2(H) 0.8 - 5.3 10e3/uL 06/13/2024 9:51 AM MAIL READER [facility] Absolute Monocytes 2.2(H) 0.0 - 1.3 10e3/uL 06/13/2024 9:51 AM MAIL READER [facility] Absolute Eosinophils 0.5 0.0 - 0.7 10e3/uL 06/13/2024 9:51 AM MAIL READER [facility] Absolute Basophils 0.2 0.0 - 0.2 10e3/uL 06/13/2024 9:51 AM MAIL READER [facility] Absolute Immature Granulocytes 0.1 <=0.4 10e3/uL 06/13/2024 9:51 AM MAIL READER [facility] Absolute NRBCs 0.1 10e3/uL 06/13/2024 9:51 AM MAIL READER [facility] Blood VENOUS LINE / Unknown IVAD (Port) / Unknown 06/13/2024 6:00 AM MAIL READER 06/13/2024 6:16 AM MAIL READER Narrative SPECIALTY LABS - 06/13/2024 9:51 AM MAIL READER Sent for review by Pathologist. See Pathologist comments after review. Tech Comments Patient Diagnosis: Sickle Cell crisis Reason for Sending: absolute lymphocyte > 5.4 us Laquita Kelley MD LAB - BLOOD ORDERABLES Final Re sult SPECIALTY LABS [facility] Specialty Lab [address] [facility] [address], [address] [place] [address], [facility] [place] [facility] [address] [facility] [address] [facility], [address] [place] [address], [facility] * (ABNORMAL) Basic metabolic panel (06/13/2024 5:59 AM MAIL READER) Sodium 135 135 - 145 mmol/L 06/13/2024 6:45 AM MAIL READER [facility] Potassium 4.3 3.4 - 5.3 mmol/L 06/13/2024 6:45 AM MAIL READER [facility] Chloride 105 98 - 107 mmol/L 06/13/2024 6:45 AM MAIL READER [facility] Carbon Dioxide (CO2) 21(L) 22 - 29 mmol/L 06/13/2024 6:45 AM MAIL READER [facility] Anion Gap 9 7 - 15 mmol/L 06/13/2024 6:45 AM MAIL READER [facility] Urea Nitrogen 4.9(L) 6.0 - 20.0 mg/dL 06/13/2024 6:45 AM MAIL READER [facility] Creatinine 0.70 0.51 - 0.95 mg/dL 06/13/2024 6:45 AM MAIL READER [facility] GFR Estimate >90 >60 mL/min/1.7 3m2 06/13/2024 6:45 AM MAIL READER [facility] Comment:eGFR calculated us2020 CKD-EPI equation. Calcium 8.7(L) 8.8 - 10.4 mg/dL 06/13/2024 6:45 AM MAIL READER [facility] Glucose 100(H) 70 - 99 mg/dL 06/13/2024 6:45 AM MAIL READER [facility] Blood VENOUS LINE / Unknown IVAD (Port) / Unknown 06/13/2024 5:59 AM MAIL READER 06/13/2024 6:16 AM MAIL READER us Laquita Kelley MD LAB - BLOOD ORDERABLES Final Re sult [facility] [place] [facility] [address] [facility], [address] [place] [address] * Respiratory Panel PCR (06/12/2024 9:34 PM MAIL READER) Adenovirus Not Detected Not Detected 06/12/2024 11:53 PM MAIL READER [facility] Coronavirus Not Detected Not Detected 06/12/2024 11:53 PM MAIL READER [facility] Comment:This test detects Co ronavirus 229E, HKU1, NL63 and OC43 but does not distinguish between them. It does not detect MERS ( Respiratory Syndrome), SARS (Severe Acute Respiratory Syndrome) or 2019-nCoV (Novel 2019) Coronavirus. Human Metapneumovirus Not Detected Not Detected 06/12/2024 11:53 PM MAIL READER [facility] Human Rhin/Enterovirus Not Detected Not Detected 06/12/2024 11:53 PM MAIL READER [facility] Influenza A Not Detected Not Detected 06/12/2024 11:53 PM MAIL READER [facility] Influenza A, H1 Not Detected Not Detected 06/12/2024 11:53 PM MAIL READER [facility] Influenza A 2009 H1N1 Not Detected Not Detected 06/12/2024 11:53 PM MAIL READER [facility] Influenza A, H3 Not Detected Not Detected 06/12/2024 11:53 PM MAIL READER [facility] Influenza B Not Detected Not Detected 06/12/2024 11:53 PM MAIL READER [facility] Parainfluenza Virus 1 Not Detected Not Detected 06/12/2024 11:53 PM MAIL READER [facility] Parainfluenza Virus 2 Not Detected Not Detected 06/12/2024 11:53 PM MAIL READER [facility] Parainfluenza Virus 3 Not Detected Not Detected 06/12/2024 11:53 PM MAIL READER [facility] Parainfluenza Virus 4 Not Detected Not Detected 06/12/2024 11:53 PM MAIL READER [facility] Respiratory Syncytial Virus A Not Detected Not Detected 06/12/2024 11:53 PM MAIL READER [facility] Respiratory Syncytial Virus B Not Detected Not Detected 06/12/2024 11:53 PM MAIL READER [facility] Chlamydia Pneumoniae Not Detected Not Detected 06/12/2024 11:53 PM MAIL READER [facility] Mycoplasma Pneumoniae Not Detected Not Detected 06/12/2024 11:53 PM MAIL READER [facility] Swab NASOPHARYNGEAL STRUCTURE / Unknown Non-blood Collection / Unknown 06/12/2024 9:34 PM MAIL READER 06/12/2024 9:47 PM MAIL READER Narrative [facility] - 06/12/2024 11:53 PM MAIL READER The ePlex Respiratory Panel is a qualitative nucleic acid, multiplex, in vitro diagnostic test for the simultaneous detection and identification of multiple respiratory viral and bacterial nucleic acids in nasopharyngeal swabs collected in viral transport media from individual exhibiting signs and symptoms of respiratory infection. The assay has received FDA approval for the testing of nasopharyngeal (RECREATIONAL COUNSELOR) swabs only. This test is used for clinical purposes and should not be regarded as investigational or for research. This laboratory is certified under the Clinical Laboratory Improvement Amendments of 1988 (CLIA-88) as qualified to perform high complexity clinical laboratory testing. us Abdelrahman Goddard MD LAB - MICRO GENERAL ORDERABLES Final Result [facility] Inf. Diseases Diag. Lab [address] [facility], [address] * Blood Culture Peripheral Blood (06/12/2024 8:46 PM MAIL READER) Culture No Growth 06/17/2024 9:31 PM MAIL READER [facility] Blood BLOOD SPECIMEN / Unknown Venipuncture / Unknown 06/12/2024 8:46 PM MAIL READER 06/12/2024 8:53 PM MAIL READER Narrative [facility] - 06/17/2024 9:31 PM MAIL READER Only an Aerobic Blood Culture Bottle was collected, interpret results with caution. us Abdelrahman Goddard MD LAB - MICRO GENERAL ORDERABLES Final Result Performing Organization Address [facility] Co de Phone Number [facility] Inf. Diseases Diag. Lab [address] [facility], [address] * Blood Culture Peripheral Blood (06/12/2024 8:46 PM MAIL READER) Culture No Growth 06/17/2024 9:31 PM MAIL READER [facility] Blood BLOOD SPECIMEN / Unknown Venipuncture / Unknown 06/12/2024 8:46 PM MAIL READER 06/12/2024 8:53 PM MAIL READER us Abdelrahman Goddard MD LAB - MICRO GENERAL ORDERABLES Final Result Performing Organization Address City/[facility]/ZIP Co de Phone Number [facility] Inf. Diseases Diag. Lab [address] [facility], [address] [place] [address], [facility] * XR Chest 2 Views (06/12/2024 7:38 PM MAIL READER) Anatomical Region Laterality Modality Chest Computed Radiogr aphy 06/12/2024 7:38 PM MAIL READER Impressions 06/12/2024 7:42 PM MAIL READER IMPRESSION: A few faint peripheral reticulonodular opacities in the mid and lower lungs again seen. Lungs otherwise clear. No pleural effusion. No pneumothorax. Borderline cardiac enlargement unchanged. Port anterior right chest wall with right IJ central venous catheter tip low SVC. Port anterior left chest wall with left IJ central venous catheter tip low SVC. Narrative 06/12/2024 7:42 PM MAIL READER EXAM: XR CHEST 2 VIEWS LOCATION: [place] [...] Adult Type and Screen (06/12/2024 7:17 PM MAIL READER) ABO/RH(D) A POS 06/13/2024 9:17 AM MAIL READER [facility] Antibody Screen Negative Negative 06/13/2024 9:17 AM MAIL READER [facility] Comment:Current antibody scr een is negative. Patient has a history of antibody(ies). A delay in compatible red blood cells may occur. SPECIMEN EXPIRATION DATE [id number] 06/13/2024 9:17 AM MAIL READER [facility] Blood BLOOD SPECIMEN / Unknown Venipuncture / Unknown 06/12/2024 7:17 PM MAIL READER 06/12/2024 7:32 PM MAIL READER Carmen Aviles PA-C LAB - BLOOD BANK TEST ORDER Final Result Performing Organization Address [facility] de Phone Number BLOOD BANK [address] [place] [phone] * (ABNORMAL) RBC and Platelet Morphology (06/12/2024 7:17 PM MAIL READER) RBC Morphology Confirmed RBC Indices 06/12/2024 8:57 PM MAIL READER [facility] Platelet Assessment Automated Count Confirmed. Platelet morphology is normal. Automated Count Confirmed. Platelet morphology is normal. 06/12/2024 8:57 PM MAIL READER [facility] Polychromasia Slight(A) None Seen 06/12/2024 8:57 PM MAIL READER [facility] Sickle Cells Moderate(A) None Seen 06/12/2024 8:57 PM MAIL READER [facility] Target Cells Moderate(A) None Seen 06/12/2024 8:57 PM MAIL READER [facility] Blood BLOOD SPECIMEN / Unknown Venipuncture / Unknown 06/12/2024 7:17 PM MAIL READER 06/12/2024 7:32 PM MAIL READER Abdelrahman Goddard MD LAB - BLOOD ORDERABLES Final R esult Performing Organization Address City/[facility] Co de Phone Number [facility] [place] [facility] [address] [facility] [address], [address] [place] [address] * (ABNORMAL) CBC with platelets and differential (06/12/2024 7:17 PM MAIL READER) Pathologist [facility] WBC Count 12.5(H) 4.0 - 11.0 10e3/uL 06/12/2024 7:54 PM MAIL READER [facility] RBC Count 2.44(L) 3.80 - 5.20 10e6/uL 06/12/2024 7:54 PM MAIL READER [facility] Hemoglobin 7.5(L) 11.7 - 15.7 g/dL 06/12/2024 7:54 PM MAIL READER [facility] Hematocrit 22.2(L) 35.0 - 47.0 % 06/12/2024 7:54 PM MAIL READER [facility] MCV 91 78 - 100 fL 06/12/2024 7:54 PM MAIL READER [facility] MCH 30.7 26.5 - 33.0 pg 06/12/2024 7:54 PM MAIL READER [facility] MCHC 33.8 31.5 - 36.5 g/dL 06/12/2024 7:54 PM MAIL READER [facility] RDW 19.5(H) 10.0 - 15.0 % 06/12/2024 7:54 PM MAIL READER [facility] Platelet Count 542(H) 150 - 450 10e3/uL 06/12/2024 7:54 PM MAIL READER [facility] % Neutrophils 57 % 06/12/2024 7:54 PM MAIL READER [facility] % Lymphocytes 24 % 06/12/2024 7:54 PM MAIL READER [facility] % Monocytes 16 % 06/12/2024 7:54 PM MAIL READER [facility] % Eosinophils 1 % 06/12/2024 7:54 PM MAIL READER [facility] % Basophils 1 % 06/12/2024 7:54 PM MAIL READER [facility] % Immature Granulocytes 0 % 06/12/2024 7:54 PM MAIL READER [facility] NRBCs per 100 WBC 1(H) <1 /100 025 7:54 PM MAIL READER [facility] Absolute Neutrophils 7.1 1.6 - 8.3 10e3/uL 06/12/2024 7:54 PM MAIL READER [facility] Absolute Lymphocytes 3.0 0.8 - 5.3 10e3/uL 06/12/2024 7:54 PM MAIL READER [facility] Absolute Monocytes 2.0(H) 0.0 - 1.3 10e3/uL 06/12/2024 7:54 PM MAIL READER [facility] Absolute Eosinophils 0.2 0.0 - 0.7 10e3/uL 06/12/2024 7:54 PM MAIL READER [facility] Absolute Basophils 0.2 0.0 - 0.2 10e3/uL 06/12/2024 7:54 PM MAIL READER [facility] Absolute Immature Granulocytes 0.1 <=0.4 10e3/uL 06/12/2024 7:54 PM MAIL READER [facility] Absolute NRBCs 0.1 10e3/uL 06/12/2024 7:54 PM MAIL READER [facility] Blood BLOOD SPECIMEN / Unknown Venipuncture / Unknown 06/12/2024 7:17 PM MAIL READER 06/12/2024 7:32 PM MAIL READER us Abdelrahman Goddard MD LAB - BLOOD ORDERABLES Final R esult [facility] [place] [facility] [address] [facility], [address] [place] [phone] * (ABNORMAL) Blood gas venous (06/12/2024 7:17 PM MAIL READER) pH Venous 7.38 7.32 - 7.43 06/12/2024 7:40 PM MAIL READER [facility] pCO2 Venous 42 40 - 50 mm Hg 06/12/2024 7:40 PM MAIL READER [facility] pO2 Venous 35 25 - 47 mm Hg 06/12/2024 7:40 PM MAIL READER [facility] Bicarbonate Venous 24 21 - 28 mmol/L 06/12/2024 7:40 PM MAIL READER [facility] Base Excess/Deficit Venous -0.9 -3.0 - 3.0 mmol/L 06/12/2024 7:40 PM MAIL READER [facility] FIO2 21 JARET 06/12/2024 7:40 PM MAIL READER [facility] Oxyhemoglobin Venous 61(L) 70 - 75 % 06/12/2024 7:40 PM MAIL READER [facility] O2 Sat, Venous 63.9(L) 70.0 - 75.0 % 06/12/2024 7:40 PM MAIL READER [facility] Blood, venous VENOUS LINE / Unknown Venipuncture / Unknown 06/12/2024 7:17 PM MAIL READER 06/12/2024 7:30 PM MAIL READER Narrative [facility] - 06/12/2024 7:40 PM MAIL READER In healthy individuals, oxyhemoglobin (O2Hb) and oxygen saturation (SO2) are approximately equal. In the presence of dyshemoglobins, oxyhemoglobin can be considerably lower than oxygen saturation. Abdelrahman Goddard MD LAB - BLOOD ORDERABLES Final R esult Performing Organization Address [facility]/ZIP Co de Phone Number [facility] [place] [facility] [address] [facility], [address] [phone] * Troponin T, High Sensitivity (06/12/2024 7:17 PM MAIL READER) Troponin T, High Sensitivity <6 <=14 ng/L 06/12/2024 8:03 PM MAIL READER [facility] Comment: Either a High Sensitivity [...] Unknown Venipuncture / Unknown 06/12/2024 7:17 PM MAIL READER 06/12/2024 7:32 PM MAIL READER Abdelrahman Goddard MD LAB - BLOOD ORDERABLES Final R esult Performing Organization Address [facility]/ZIP Co de Phone Number [facility] [place] [facility] [address] [facility], [address] [phone] * (ABNORMAL) Basic metabolic panel (06/12/2024 7:17 PM MAIL READER) Sodium 139 135 - 145 mmol/L 06/12/2024 8:03 PM MAIL READER [facility] Potassium 4.3 3.4 - 5.3 mmol/L 06/12/2024 8:03 PM MAIL READER [facility] Chloride 109(H) 98 - 107 mmol/L 06/12/2024 8:03 PM MAIL READER [facility] Carbon Dioxide (CO2) 21(L) 22 - 29 mmol/L 06/12/2024 8:03 PM MAIL READER [facility] Anion Gap 9 7 - 15 mmol/L 06/12/2024 8:03 PM MAIL READER [facility] Urea Nitrogen 5.9(L) 6.0 - 20.0 mg/dL 06/12/2024 8:03 PM MAIL READER [facility] Creatinine 0.61 0.51 - 0.95 mg/dL 06/12/2024 8:03 PM MAIL READER [facility] GFR Estimate >90 >60 mL/min/1.7 3m2 06/12/2024 8:03 PM MAIL READER [facility] Comment:eGFR calculated 2020 CKD-EPI equation. Calcium 9.4 8.8 - 10.4 mg/dL 06/12/2024 8:03 PM MAIL READER [facility] Glucose 97 70 - 99 mg/dL 06/12/2024 8:03 PM MAIL READER [facility] Blood BLOOD SPECIMEN / Unknown Venipuncture / Unknown 06/12/2024 7:17 PM MAIL READER 06/12/2024 7:32 PM MAIL READER us Abdelrahman Goddard MD LAB - BLOOD ORDERABLES Final R esult [facility] [address] [facility], [address] * (ABNORMAL) INR (06/12/2024 7:17 PM MAIL READER) INR 1.37(H) 0.85 - 1.15 06/12/2024 7:54 PM MAIL READER [facility] Blood BLOOD SPECIMEN / Unknown Venipuncture / Unknown 06/12/2024 7:17 PM MAIL READER 06/12/2024 7:32 PM MAIL READER us Abdelrahman Goddard MD LAB - BLOOD ORDERABLES Final R esult [facility] [place] [facility] [address] [facility], [address] * EKG 12-lead, tracing only (06/12/2024 6:37 PM MAIL READER) Systolic Blood Pressure mmHg RADIOLOGY RESULTS Diastolic Blood Pressure mmHg RADIOLOGY RESULTS Ventricular Rate 94 BPM RAD IOLOGY RESULTS Atrial Rate 94 BPM RADIOLOG Y RESULTS WA Interval 146 ms RADIOLOG Y RESULTS QRS Duration 84 ms RADIOLO GY RESULTS QT 346 ms RADIOLOGY RESULTS QTc 432 ms RADIOLOGY RESULTS P Rex 31 degrees RADIOLOGY RESULTS R AXIS 85 degrees RADIOLOGY RESULTS T Rex 36 degrees RADIOLOGY RESULTS Interpretation ECG Sinus rhythm Normal ECG Unconfirmed report - interpretation of this ECG is computer generated - see medical record for final interpretation Confirmed by - EMERGENCY ROOM, PHYSICIAN ([id number]), editorial intern CLAUDIO ASTORGA ([id number]) on 06/13/2024 7:17:59 AM RADIOLOGY RESULTS 06/12/2024 6:37 PM MAIL READER 06/13/2024 7:17 AM MAIL READER us Alex Morton MD ECG ORDERABLES Edited [...] within 2 weeks. $Given 06/15/2024 8:05 AM MAIL READER 2 puffs $Given 06/14/2024 7:59 PM MAIL READER 2 puffs $Given 06/14/2024 4:39 PM MAIL READER 2 puffs albuterol (PROVENTIL HFA/VENTOLIN HFA) inhaler [...] Indications: SepsisIndications:Sepsis $New Bag 06/12/2024 9:31 PM MAIL READER 500 mg 250 mL /hr azithromycin (ZITHROMAX) 500 mg in sodium chloride 0.9 % 250 mL intermittent infusion Routine, 500 mg, Intravenous, EVERY 24 HOURS, First dose on Wed06/13/24 at 2100, Indications: Acute chest syndromeIndications:Acute chest syndrome $New Bag 06/13/2024 10:04 PM MAIL READER 500 mg azithromycin (ZITHROMAX) tablet 500 mg Routine, 500 mg, Oral, DAILY, First dose on Wed06/14/24 at 1200, Indications: Community Acquired PneumoniaIndications:Community Acquired Pneumonia $Given 06/15/2024 8:05 AM MAIL READER 500 mg $Given 06/14/2024 12:38 PM MAIL READER 500 mg cefTRIAXone (ROCEPHIN) 1 g vial to attach to NS 100 mL bag for ADULTS or NS 50 mL bag for PEDS STAT, 1 g, Intravenous, ONCE, On Wed06/12/24 at 2005, For 1 dose, Lactated Ringer's solution is not compatible with ceftriaxone for injection, Indications: SepsisIndications:Sepsis $New Bag 06/12/2024 8:39 PM MAIL READER 1 g cefTRIAXone (ROCEPHIN) 2 g vial to attach to NS 100 ml bag for ADULTS or NS 50 ml bag for PEDS Routine, 2 g, Intravenous, EVERY 24 HOURS, First dose on Wed06/13/24 at 2000, Lactated Ringer's solution is not compatible with ceftriaxone for injection, Indications: Acute chest syndromeIndications:Acute chest syndrome $New Bag 06/14/2024 8:00 PM MAIL READER 2 g $New Bag 06/13/2024 8:16 PM MAIL READER 2 g diclofenac (VOLTAREN) 1 % topical gel 2 g 2 g, Topical, 4 TIMES DAILY PRN, inflammatory pain, Starting on Wed06/14/24 at 0912, Apply to area of pain. Use supplied dosing card to measure dose. $Given 06/15/2024 8:10 AM MAIL READER 2 g $Given 06/14/2024 12:38 PM MAIL READER 2 g diphenhydrAMINE (BENADRYL) capsule 25 mg 25 mg, Oral, EVERY 6 HOURS PRN, itching, Starting on Wed06/12/24 at 2139 $Given 06/14/2024 12:38 PM MAIL READER 25 mg $Given 06/13/2024 10:54 PM MAIL READER 25 mg $Given 06/13/2024 12:12 PM MAIL READER 25 mg diphenhydrAMINE (BENADRYL) injection 25 mg 25 mg, Intravenous, EVERY 6 HOURS PRN, itching, Starting on Wed06/12/24 at 2139 $Given 06/13/2024 5:39 AM MAIL READER 25 mg $Given 06/12/2024 10:41 PM MAIL READER 25 mg enoxaparin ANTICOAGULANT (LOVENOX) injection 40 mg 40 mg, Subcutaneous, EVERY 24 HOURS, First dose on Wed06/13/24 at 0800, Contact provider if platelet count drops by 50% or more after enoxaparin initiation OR if platelet count falls below 50 x 10e3/uL $Given 06/15/2024 7:59 AM MAIL READER 40 mg $Given 06/14/2024 8:29 AM MAIL READER 40 mg $Given 06/13/2024 7:49 AM MAIL READER 40 mg FLUoxetine (PROzac) capsule 10 mg 10 mg, Oral, DAILY, First dose on Wed06/13/24 at 0800 $Given 06/14/2024 2:37 PM MAIL READER 10 mg $Given 06/13/2024 7:50 AM MAIL READER 10 mg folic acid (FOLVITE) tablet 1 mg 1 mg, Oral, DAILY, First dose on Wed06/13/24 at 0800 $Given 06/15/2024 8:05 AM MAIL READER 1 mg $Given 06/14/2024 8:29 AM MAIL READER 1 mg $Given 06/13/2024 7:49 AM MAIL READER 1 mg heparin lock flush 10 unit/mL [...] For 1 dose $Given 06/12/2024 7:24 PM MAIL READER 2 mg hydromorphone (DILAUDID) injection 2 mg 2 mg, Intravenous, ONCE, On Wed06/12/24 at 2010, For 1 dose $Given 06/12/2024 8:14 PM MAIL READER 2 mg hydromorphone (DILAUDID) injection 2 mg 2 mg, Intravenous, EVERY 3 HOURS PRN, moderate pain, IF patient cannot take oral opioid OR IF pain not managed with non-pharmacological, non-opioid, or oral opioid interventions if ordered, Starting on Wed06/12/24 at 2237, May use concomitant with non-opioid analgesics. $Given 06/12/2024 11:31 PM MAIL READER 2 mg hydromorphone (DILAUDID) injection 2 mg 2 mg, Intravenous, ONCE, On Wed06/12/24 at 2135, For 1 dose $Given 06/12/2024 9:46 PM MAIL READER 2 mg hydromorphone (DILAUDID) injection 2 mg 2 mg, Intravenous, EVERY 2 HOURS PRN, moderate pain, IF patient cannot take oral opioid OR IF pain not managed with non-pharmacological, non-opioid, or oral opioid interventions if ordered, Starting on Wed06/13/24 at 0132, May use concomitant with non-opioid analgesics. $Given 06/14/2024 12:38 PM MAIL READER 2 mg $Given 06/14/2024 10:31 AM MAIL READER 2 mg $Given 06/14/2024 8:29 AM MAIL READER 2 mg hydromorphone (DILAUDID) injection 2 mg 2 mg, Intravenous, EVERY 2 HOURS, First dose (after last modification) on Wed06/14/24 at 1415, May use concomitant with non-opioid analgesics. $Given 06/15/2024 7:58 AM MAIL READER 2 mg $Given 06/15/2024 6:01 AM MAIL READER 2 mg $Given 06/15/2024 4:11 AM MAIL READER 2 mg hydroxyurea (HYDREA) capsule 1,000 mg 1,000 mg, Oral, 2 TIMES DAILY, First dose on Wed06/12/24 at 2330, Indications: sickle cell anemia, Do not crush May require hepatic and/or renal dose or frequency adjustments. See reference link for guidelines.Indications:sickle cell anemia $Given 06/15/2024 8:06 AM MAIL READER 1,000 mg $Given 06/14/2024 8:00 PM MAIL READER 1,000 mg $Given 06/14/2024 8:30 AM MAIL READER 1,000 mg lactated ringers infusion at 75 mL/hr, Intravenous, CONTINUOUS, Starting on Wed06/12/24 at 2240, Until Wed06/13/24 at 0839 Rate/Dose Verify 06/13/2024 7:02 AM MAIL READER 75 mL/hr Rate/Dose Verify 06/13/2024 4:52 AM MAIL READER 75 mL/h r Rate/Dose Verify 06/13/2024 1:35 AM MAIL READER 75 mL/h r Lidocaine (LIDOCARE) 4 % [...] Wed06/12/24 at 2138 $Given 06/13/2024 1:28 AM MAIL READER 5 mg menthol (ICY HOT) 5 % [...] Liquid not required. $Given 06/14/2024 9:20 AM MAIL READER 4 mg ondansetron (ZOFRAN) injection 4 mg 4 mg, Intravenous, ONCE, Administer over 2-5 Minutes, On Wed06/12/24 at 1850, For 1 dose $Given 06/12/2024 7:24 PM MAIL READER 4 mg ondansetron (ZOFRAN) injection 4 mg 4 mg, Intravenous, EVERY 6 HOURS PRN, nausea/vomiting - 1st line, Administer over 2-5 Minutes, Starting on Wed06/12/24 at 2237, Give IF patient unable to tolerate oral medication. This is Step 1 of nausea and vomiting management. If nausea not resolved in 15 minutes, go to Step 2 prochlorperazine (COMPAZINE). $Given 06/15/2024 4:19 AM MAIL READER 4 mg senna-docusate (SENOKOT-S/PERICOLACE) 8.6-50 MG per [...] IV dormant line $Given 06/15/2024 6:32 AM MAIL READER 3 mLs $Given 06/13/2024 8:37 PM MAIL READER 3 mLs $Given 06/13/2024 2:12 PM MAIL READER 3 mLs sodium chloride (PF) 0.9% PF flush 3 mL 3 mL, Intracatheter, EVERY 1 MIN PRN, line flush, other, to ensure patency or to lock dormant line, Starting on Wed06/12/24 at 2237 $Given 06/14/2024 2:4 2 PM MAIL READER 3 mLs $Given 06/14/2024 8:30 AM MAIL READER 3 mLs $Given 06/14/2024 1:32 AM MAIL READER 3 mLs sodium chloride 0.9% BOLUS 1,000 mL Intravenous, 1,000 mL, ONCE, at 1,000 mL/hr, Administer over 1 Hours, On Wed06/12/24 at 1850, For 1 dose $New Bag 06/12/2024 7:22 PM MAIL READER 1,000 mLs 1000 mL/hr documented in this encounter Active and Recently Administered Medications Times are shown in MAIL READER. Scheduled Medication Order 06/13/2024 06/14/2024 06/15/2024 albuterol [...] 0920 ($Given - Provider: Clay Avina RN) 6956 (See Alternative - Provider: Kathy Levy RN) [...] (See Alternative - Provider: Clay Avina RN) 3235 ($Given - Provider: Kathy Levy RN) senna-docusate [...] stools. documented in this encounter Care Teams Private Branch Exchange Service Adviser Relationship Specialty Start Date End Date No Ref-Primary, Physician PCP - General 03/15/24 06/17/24 Mor Ramsey Medical Student 04/03/24 Case Samuel MD [address] [place] [address], [address] [place] [address] Assigned Pediatric Specialist Provider 05/18/24 Juhi Benson, RN Specialty Sales Solutions Representative Hematology & Oncology 05/29/24 documented as of this encounter
--- OUTSIDE RECORDS SUMMARY | 2024-07-03 21:34 | XMS_ITS | Encounter Summary ---
Author Organization [facility] Address [address] [place] [address]. 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 Advanced Treatment [address] [phone] Case Samuel MD [address] [place], [place] [address], RO[address] [address] 07/10/2024 11:30 AM CDT Oncology Visit [facility] [address] [phone] Case Samuel MD [address] [place], [place] [address], RO[address] [address] documented as of this encounter Goals Goal Patient Goal Type Associated Problems Recent Progress Patient-Stated? Author Pain Management General On track( 025 12:40 PM AIRCRAFT WORKER) Yes Juhi Benson, RN Note: Goal [...] on filedocumented in this encounter Care Teams Plumbing Mechanic Relationship Specialty Start Date End Date Veronica Joseph MD [address] [place] [address] PCP - General Family Medicine 06/18/24 Mor Ramsey Medical Student 04/03/24 Case Samuel MD [address] [place] [address], RO[address] [place] [address] Assigned Pediatric Specialist Provider 05/18/24 Juhi Benson, RN Specialty Mechanical Sound Technician Hematology & Oncology 05/29/24 documented as of this encounter
--- OUTSIDE RECORDS SUMMARY | 2024-07-03 21:34 | XMS_ITS | Encounter Summary ---
Author Organization [place] Address [address] [place] [address]. [place] [address] Care Team Providers Care Sales Route Driver Helper Name Role Phone RoxyElvirac Unavailable Unavailable Case Samuel MD Unavailable [phone] Juhi Benson RN Unavailable Unavailable Veronica Joseph MD Primary Care Provider [phone] Reason for Visit * Reason Comments Abnormal Labs hemoglobin Sickle Cell Pain Crisis Back/ legs Encounter Details Date Type Department Care Team (Late st Contact Info) Description 07/02/2024 5:47 PM CDT - 07/02/2024 9:37 PM CDT Emergency [facility] Emergency Department [address] [place] [phone] Vasiliy Lutz, [address] [id number] Sickle cell pain crisis (H) Discharge Disposition: [...] in an overnight penitentiary, or couch-surfing.) Yes 06/20/2024 Are you worried [...] on file 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 [facility] ([facility]) 07/02/24 ED PROVIDER NOTE History Chief Complaint [...] file Final diagnoses: None Vasiliy Lutz DO [facility] EM[facility]GENCY [facility]PARTMENT 07/02/2024 Vasiliy Lutz DO 07/03/24 0128 * Hawa Mosqueda RN [...] Description 07/04/2024 9:[address] [facility] [address] [phone] Case Samuel MD [address] [place], [place] [address], ROOM [address] [address] 07/06/2024 8:00 AM CDT Appointment [facility] [address] [phone] Case Samuel MD [address] [place] [address], RO[address] [address] 07/10/2024 11:30 AM CDT Oncology Visit [facility] [address] [phone] Case Samuel MD [address] [place], [place] [address], ROOM [address] 3[address] documented as of this encounter Goals Goal Patient Goal Type Associated Problems Recent Progress Patient-Stated? Author Pain Management General On track( 025 12:40 PM FRAMING CONSULTANT) Yes Juhi Benson, RN Note: Goal [...] BLOOD ORDERABLES Fi nal Result [facility] [place] [facility] [address] [facility], Room 3-[address] [place] [address], [facility] * Adult Type and Screen (07/02/2024 7:03 PM CDT) ABO/RH(D) A POS 07/02/2024 6:10 PM CDT [facility] Antibody Screen Negative Negative 07/02/2024 6:10 PM CDT [facility] SPECIMEN EXPIRATION DATE [id number] 07/02/2024 6:10 PM CDT [facility] Blood BLOOD SPECIMEN / Unknown Venipuncture / Unknown 07/02/2024 7:03 PM CDT 07/02/2024 7:13 PM CDT Vasiliy Lutz DO LAB - BLOOD BANK TEST ORD ER Final Result BLOOD BANK [address] [place] [address] * (ABNORMAL) CBC with platelets [...] BLOOD ORDERABLES Fi nal Result [facility] [place] [facility] [address] [facility], Room [address] [place] [address], [facility] * (ABNORMAL) Comprehensive metabolic panel (07/02/2024 7:03 [...] BLOOD ORDERABLES Fi nal Result [facility] [place] [facility] [address] [facility], Room [address]580 [place] [address], [facility] documented in this encounter [...] this section may contain times in both FRAMING CONSULTANT and CDT. Scheduled Medication Order 06/30/2024 07/01/2024 [...] SOFIA) documented in this encounter Care Teams Sales Route Driver Helper Relationship Specialty Start Date End Date Veronica Joseph MD [address] [place] [address] PCP - General Family Medicine 06/18/24 Mor Ramsey Medical Student 04/03/24 Case Samuel MD [address] [place] [address], [address] [place] [address] Assigned Pediatric Specialist Provider 05/18/24 Juhi Benson, RN Specialty Bowling Ball Assembler Hematology & Oncology 05/29/24 documented as of this encounter
--- OUTSIDE RECORDS SUMMARY | 2024-07-03 21:34 | XMS_ITS | Encounter Summary ---
Author Organization [facility] Address [address] [place] [address]. 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 Gender Identity Not on file Sexual Orientation Not on file documented as of this encounter Plan of Treatment Upcoming Encounters Date Type Department Care Team (Late st Contact Info) Description 07/04/2024 9:00 AM CDT Lab [facility] Cancer [address] [phone] Case Samuel MD [address] [place], [place] [address], ROOM [address] [address] 07/06/2024 8:00 AM CDT Appointment [facility] Advanced Treatment [address] [phone] Case Samuel MD [address] [place], [place] [address], RO[address] [address] 07/10/2024 11:30 AM CDT Oncology Visit [facility] [address] [phone] Case Samuel MD [address] [place] [address], [address] [address] documented as of this encounter Goals Goal Patient Goal Type Associated Problems Recent Progress Patient-Stated? Author Pain Management General On track( 025 12:40 PM PILE DRIVING TECHNICIAN) Yes Juhi Benson, RN Note: Goal [...] on filedocumented in this encounter Care Teams Relationship Associate Relationship Specialty Start Date End Date Veronica Joseph MD [address] [place] [address] PCP - General Family Medicine 06/18/24 Mor Ramsey Medical Student 04/03/24 Case Samuel MD [address] [place] [address], [address] [place] [address] Assigned Pediatric Specialist Provider 05/18/24 Juhi Benson, RN Specialty Tin Pourer Hematology & Oncology 05/29/24 documented as of this encounter
--- OUTSIDE RECORDS SUMMARY | 2024-07-03 21:34 | XMS_ITS | Encounter Summary ---
Author Organization [facility] Address [address] [place] [address]. 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 Gender Identity Not on file Sexual Orientation Not on file documented as of this encounter Plan of Treatment Upcoming Encounters Date Type Department Care Team (Late st Contact Info) Description 07/04/2024 9:00 AM CDT Lab [facility] [address] [phone] Case Samuel MD [address] [place], [place] [address], [address] [address] 07/06/2024 8:00 AM CDT Appointment [facility] Advanced Treatment [address] [phone] Case Samuel MD [address] [place], [place] [address], [address] [address] 07/10/2024 11:30 AM CDT Oncology Visit [facility] [address] [phone] Case Samuel MD [address] [place] [address], [address] [address] documented as of this encounter Goals Goal Patient Goal Type Associated Problems Recent Progress Patient-Stated? Author Pain Management General On track( 025 12:40 PM STOCK HOUSE WORKER) Yes Juhi Benson, RN Note: Goal [...] on filedocumented in this encounter Care Teams Applications Packager Relationship Specialty Start Date End Date Veronica Joseph MD [address] [place] [address] PCP - General Family Medicine 06/18/24 Mor Ramsey Medical Student 04/03/24 Case Samuel MD [address] [place] [address], [address] [place] [address] Assigned Pediatric Specialist Provider 05/18/24 Juhi Benson, RN Specialty Clinical Quality Rn Hematology & Oncology 05/29/24 documented as of this encounter
--- OUTSIDE RECORDS SUMMARY | 2024-07-03 21:34 | XMS_ITS | Encounter Summary ---
Author Organization [place] Address [address] [place] [address]. 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 Gender Identity Not on file Sexual Orientation Not on file documented as of this encounter Plan of Treatment Upcoming Encounters Date Type Department Care Team (Late st Contact Info) Description 07/04/2024 9:00 AM CDT Lab [facility] Cancer [address] [phone] Case Samuel MD [address] [place], [place] [address], ROOM [address] [address] 07/06/2024 8:00 AM CDT Appointment [facility] Advanced Treatment [address] [phone] Case Samuel MD [address] [place], [place] [address], RO[address] [address] 07/10/2024 11:30 AM CDT Oncology Visit [facility] [address] [phone] Case Samuel MD [address] [place], [place] [address], [address] [address] documented as of this encounter Goals Goal Patient Goal Type Associated Problems Recent Progress Patient-Stated? Author Pain Management General On track( 025 12:40 PM TOOL SALVAGE WORKER) Yes Juhi Benson, RN Note: Goal [...] on filedocumented in this encounter Care Teams Salvage Determiner Relationship Specialty Start Date End Date No Ref-Primary, Physician PCP - General 03/15/24 06/17/24 Mor Ramsey Medical Student 04/03/24 Case Samuel MD [address] [place] [address], [address] [place] [address] Assigned Pediatric Specialist Provider 05/18/24 Juhi Benson, RN Specialty Packaging Tech Hematology & Oncology 05/29/24 documented as of this encounter
--- OUTSIDE RECORDS SUMMARY | 2024-07-03 21:34 | XMS_ITS | Encounter Summary ---
Author Organization [facility] Address [address] [place] [address]. 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 Gender Identity Not on file Sexual Orientation Not on file documented as of this encounter Plan of Treatment Upcoming Encounters Date Type Department Care Team (Late st Contact Info) Description 07/04/2024 9:00 AM CDT Lab [facility] Cancer [address] [phone] Case Samuel MD [address] [place], [place] [address], ROOM [address] [address] 07/06/2024 8:00 AM CDT Appointment [facility] Advanced Treatment [address] [phone] Case Samuel MD [address] [place], [place] [address], RO[address] [address] 07/10/2024 11:30 AM CDT Oncology Visit [facility] [address] [phone] Case Samuel MD [address] [place], [place] [address], RO[address] [address] documented as of this encounter Goals Goal Patient Goal Type Associated Problems Recent Progress Patient-Stated? Author Pain Management General On track( 025 12:40 PM MOTOR VEHICLE INSPECTOR) Yes Juhi Benson, RN Note: Goal [...] on filedocumented in this encounter Care Teams Property Custodian Relationship Specialty Start Date End Date No Ref-Primary, Physician PCP - General 03/15/24 06/17/24 Mor Ramsey Medical Student 04/03/24 Case Samuel MD [address] [place] [address], [address] [place] [address] Assigned Pediatric Specialist Provider 05/18/24 Juhi Benson, RN Specialty Nurse Aide Evaluator Hematology & Oncology 05/29/24 documented as of this encounter
--- OUTSIDE RECORDS SUMMARY | 2024-07-03 21:34 | XMS_ITS | Encounter Summary ---
Author Organization [facility] Address [address] [place] [address] Care Team Providers Care Drugless Doctor Name Role Phone [facility] Unavailable Unavailable Case Samuel MD Unavailable [phone] Juhi Benson RN Unavailable Unavailable Veronica Joseph MD Primary Care Provider [phone] Reason for Visit * Reason Comments Sickle Cell Pain Crisis Encounter Details Date Type Department Care Team (Late st Contact Info) Description 07/01/2024 6:18 PM APARTMENT LEASING SPECIALIST - 07/01/2024 9:43 PM APARTMENT LEASING SPECIALIST Emergency [facility] Emergency Department [address] [place] [phone] Andres Sheikh MD [address] [place] [phone] Sickle cell pain crisis (H) Discharge Disposition: [...] on file Legal Sex Female 8:25 AM APARTMENT LEASING SPECIALIST Gender Identity Not on file Sexual Orientation Not on file documented as of this encounter Last Filed Vital Signs Vital Sign Reading Time Taken Comments Blood Pressure 130/72 07/01/2024 6:13 PM APARTMENT LEASING SPECIALIST Pulse 112 07/01/2024 6:13 PM APARTMENT LEASING SPECIALIST Temperature 36.8 C (98.2 F) 07/01/2024 6:13 PM APARTMENT LEASING SPECIALIST Respiratory Rate 20 07/01/2024 6:13 PM APARTMENT LEASING SPECIALIST Oxygen Saturation 97% 07/01/2024 6:13 PM APARTMENT LEASING SPECIALIST Inhaled Oxygen Concentration - - Weight - - Height - - Body Mass Index - - documented in this encounter Discharge Instructions * Discharge Instructions* Andres Sheikh MD - 07/01/2024 9:28 PM APARTMENT LEASING SPECIALIST Please follow-up with your senior materials planner about your ER visit and your hemoglobin of 7.1. Return to the ER for any new or worsening symptoms. Particular lightheadedness presyncope excetra. TMENT LEASING SPECIALIST TMENT LEASING SPECIALIST documented in this encounter Medications at [...] 05/01/2024 naloxone (NARCAN) 4 MG/0.1ML nasal spray [place] 1 spray (4 mg) into one nostril alternating nostrils as needed for opioid reversal (for opiate overdose if not breathing and unconscious. have your family member watch video on how to use/read information sheet). 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 I didtalk to the senior materials planner about a hemoglobin of 7 they are [...] Wilkinson, am serving as a trained medical research scientist to document services personally performed by Andres Sheikh MD, based on the provider's statements to me. I, Andres Sheikh MD, was physically present and have reviewed and verified the accuracy of this note documented by Tatiana Wilkinson. Andres Sheikh MD [facility] EMERGENCY DEPARTMENT 07/01/2024 Andres Sheikh MD 07/01/240 TMENT LEASING SPECIALIST * Lebron Aponte, RN - 07/01/2024 6:15 [...] obeys commands Best Verbal Response 5-->(V5) oriented Sherrill Coma Scale Score 15 TMENT LEASING SPECIALIST documented in this encounter Plan of Treatment Upcoming Encounters Date Type Department Care Team (Late st Contact Info) Description 07/04/2024 9:00 AM CDT Lab [facility] [address] [place] [phone] Case Samuel MD [address] [place] [address], [address] [place] [address] 07/06/2024 8:00 AM CDT Appointment [facility] [place] [address] [place] [phone] Case Samuel MD [address] [facility] [address], [address] [place] [address] 07/10/2024 11:30 AM CDT Oncology Visit [facility] [address] [place] [phone] Case Samuel MD [address] [facility] [address], [address] [place] [address] documented as of this encounter Goals Goal Patient Goal Type Associated Problems Recent Progress Patient-Stated? Author Pain Management General On track( 025 12:40 PM APARTMENT LEASING SPECIALIST) Yes Juhi Benson, RN Note: Goal [...] MANUAL DIFFERENTIAL STAT 07/01/2024 8 :00 PM APARTMENT LEASING SPECIALIST CBC WITH PLATELETS AND DIFFERENTIAL STAT 07/01/2024 8:00 PM APARTMENT LEASING SPECIALIST CBC WITH PLATELETS & DIFFERENTIAL STAT 07/01/2024 8:00 PM APARTMENT LEASING SPECIALIST RETICULOCYTE COUNT STAT 07/01/2024 8: 00 PM APARTMENT LEASING SPECIALIST COMPREHENSIVE METABOLIC PANEL STAT 07/01/2024 8:00 PM APARTMENT LEASING SPECIALIST documented in this encounter Results * (ABNORMAL) Manual Differential (07/01/2024 8:00 PM APARTMENT LEASING SPECIALIST) % Neutrophils 63 % JARET 07/01/2024 9:50 PM APARTMENT LEASING SPECIALIST [facility] % Lymphocytes 25 % JARET 07/01/2024 9:50 PM APARTMENT LEASING SPECIALIST [facility] % Monocytes 8 % JARET 07/01/2024 9:50 PM APARTMENT LEASING SPECIALIST [facility] % Eosinophils 0 % JARET 07/01/2024 9:50 PM APARTMENT LEASING SPECIALIST [facility] % Basophils 4 % JARET 07/01/2024 9:50 PM APARTMENT LEASING SPECIALIST [facility] % Myelocytes 0 % JARET 07/01/2024 9:50 PM APARTMENT LEASING SPECIALIST [facility] Absolute Neutrophils 4.9 1.6 - 8.3 10e3/uL JARET 07/01/2024 9:50 PM APARTMENT LEASING SPECIALIST [facility] Absolute Lymphocytes 1.9 0.8 - 5.3 10e3/uL JARET 07/01/2024 9:50 PM APARTMENT LEASING SPECIALIST [facility] Absolute Monocytes 0.6 0.0 - 1.3 10e3/uL JARET 07/01/2024 9:50 PM APARTMENT LEASING SPECIALIST [facility] Absolute Eosinophils 0.0 0.0 - 0.7 10e3/uL JARET 07/01/2024 9:50 PM APARTMENT LEASING SPECIALIST [facility] Absolute Basophils 0.3(H) 0.0 - 0.2 10e3/uL JARET 07/01/2024 9:50 PM APARTMENT LEASING SPECIALIST [facility] Absolute Myelocytes 0.0 <=0.0 10e3/uL JARET 07/01/2024 9:50 PM APARTMENT LEASING SPECIALIST [facility] NRBCs per 100 WBC 17 % JARET 07/01/2024 9:50 PM APARTMENT LEASING SPECIALIST [facility] Absolute NRBCs 1.3 10e3/uL JARET 07/01/2024 9:50 PM APARTMENT LEASING SPECIALIST [facility] RBC Morphology Confirmed RBC Indices JARET 07/01/2024 9:50 PM APARTMENT LEASING SPECIALIST [facility] Platelet Assessment Automated Count Confirmed. Platelet morphology is normal. Automated Count Confirmed. Platelet morphology is normal. JARET 07/01/2024 9:50 PM APARTMENT LEASING SPECIALIST [facility] Polychromasia Slight(A) None Seen JARET 07/01/2024 9:50 PM APARTMENT LEASING SPECIALIST [facility] Sickle Cells Slight(A) None Seen JARET 07/01/2024 9:50 PM APARTMENT LEASING SPECIALIST [facility] Target Cells Slight(A) None Seen [facility] 07/01/2024 9:50 PM APARTMENT LEASING SPECIALIST [facility] Blood BLOOD SPECIMEN / Unknown Venipuncture / Unknown 07/01/2024 8:00 PM APARTMENT LEASING SPECIALIST 07/01/2024 8:07 PM APARTMENT LEASING SPECIALIST Narrative [facility] - 07/01/2024 9:50 PM APARTMENT LEASING SPECIALIST Differential done on Albumin treated blood due to Smudge Cells. us Andres Sheikh MD LAB - BLOOD ORDERABLES [facility] Result [facility] [address] [facility], [address] [phone] * (ABNORMAL) CBC with platelets and differential (07/01/2024 8:00 PM APARTMENT LEASING SPECIALIST) WBC Count 7.7 4.0 - 11.0 10e3/uL 07/01/2024 9:50 PM APARTMENT LEASING SPECIALIST [facility] RBC Count 2.18(L) 3.80 - 5.20 10e6/uL 07/01/2024 9:50 PM APARTMENT LEASING SPECIALIST [facility] Hemoglobin 7.1(L) 11.7 - 15.7 g/dL 07/01/2024 9:50 PM APARTMENT LEASING SPECIALIST [facility] Hematocrit 20.7(L) 35.0 - 47.0 % 07/01/2024 9:50 PM APARTMENT LEASING SPECIALIST [facility] MCV 95 78 - 100 fL 07/01/2024 9:50 PM APARTMENT LEASING SPECIALIST [facility] MCH 32.6 26.5 - 33.0 pg 07/01/2024 9:50 PM APARTMENT LEASING SPECIALIST [facility] MCHC 34.3 31.5 - 36.5 g/dL 07/01/2024 9:50 PM APARTMENT LEASING SPECIALIST [facility] RDW 18.6(H) 10.0 - 15.0 % 07/01/2024 9:50 PM APARTMENT LEASING SPECIALIST [facility] Platelet Count 383 150 - 450 10e3/uL 07/01/2024 9:50 PM APARTMENT LEASING SPECIALIST [facility] Blood BLOOD SPECIMEN / Unknown Venipuncture / Unknown 07/01/2024 8:00 PM APARTMENT LEASING SPECIALIST 07/01/2024 8:07 PM APARTMENT LEASING SPECIALIST Andres Sheikh MD LAB - BLOOD ORDERABLES Liss l Result Performing Organization Address [facility]/ZIP Co de Phone Number [facility] [address] [facility], [address] * (ABNORMAL) Reticulocyte count (07/01/2024 8:00 PM APARTMENT LEASING SPECIALIST) % Reticulocyte 7.3(H) 0.5 - 2.0 % 07/01/2024 8:13 PM APARTMENT LEASING SPECIALIST [facility] Absolute Reticulocyte 0.159(H) 0.025 - 0.095 10e6/uL 07/01/2024 8:13 PM APARTMENT LEASING SPECIALIST [facility] Blood BLOOD SPECIMEN / Unknown Venipuncture / Unknown 07/01/2024 8:00 PM APARTMENT LEASING SPECIALIST 07/01/2024 8:07 PM APARTMENT LEASING SPECIALIST Andres Sheikh MD LAB - BLOOD ORDERABLES Liss l Result Performing Organization Address City/[facility]/ZIP Co de Phone Number [facility] [address] [facility], [address] * (ABNORMAL) Comprehensive metabolic panel (07/01/2024 8:00 PM APARTMENT LEASING SPECIALIST) Pathologist [facility] Sodium 136 135 - 145 mmol/L 07/01/2024 8:37 PM APARTMENT LEASING SPECIALIST [facility] Potassium 4.9 3.4 - 5.3 mmol/L 07/01/2024 8:37 PM APARTMENT LEASING SPECIALIST [facility] Carbon Dioxide (CO2) 20(L) 22 - 29 mmol/L 07/01/2024 8:37 PM APARTMENT LEASING SPECIALIST [facility] Anion Gap 10 7 - 15 mmol/L 07/01/2024 8:37 PM APARTMENT LEASING SPECIALIST [facility] Urea Nitrogen 13.4 6.0 - 20.0 mg/dL 07/01/2024 8:37 PM APARTMENT LEASING SPECIALIST [facility] Creatinine 0.65 0.51 - 0.95 mg/dL 07/01/2024 8:37 PM APARTMENT LEASING SPECIALIST [facility] GFR Estimate >90 >60 mL/min/1.7 3m2 07/01/2024 8:37 PM APARTMENT LEASING SPECIALIST [facility] Comment:eGFR calculated us2020 CKD-EPI equation. Calcium 8.8 8.8 - 10.4 mg/dL 07/01/2024 8:37 PM APARTMENT LEASING SPECIALIST [facility] Chloride 106 98 - 107 mmol/L 07/01/2024 8:37 PM APARTMENT LEASING SPECIALIST [facility] Glucose 102(H) 70 - 99 mg/dL 07/01/2024 8:37 PM APARTMENT LEASING SPECIALIST [facility] Alkaline Phosphatase 104 40 - 150 U/L 07/01/2024 8:37 PM APARTMENT LEASING SPECIALIST [facility] AST 57(H) 0 - 45 U/L 07/01/2024 8:37 PM APARTMENT LEASING SPECIALIST [facility] ALT 53(H) 0 - 50 U/L 07/01/2024 8:37 PM APARTMENT LEASING SPECIALIST [facility] Protein Total 7.3 6.4 - 8.3 g/dL 07/01/2024 8:37 PM APARTMENT LEASING SPECIALIST [facility] Albumin 4.1 3.5 - 5.2 g/dL 07/01/2024 8:37 PM APARTMENT LEASING SPECIALIST [facility] Bilirubin Total 1.4(H) <=1.2 mg/dL 07/01/2024 8:37 PM APARTMENT LEASING SPECIALIST [facility] Blood BLOOD SPECIMEN / Unknown Venipuncture / Unknown 07/01/2024 8:00 PM APARTMENT LEASING SPECIALIST 07/01/2024 8:07 PM APARTMENT LEASING SPECIALIST us Andres Sheikh MD LAB - BLOOD ORDERABLES [place] Result [facility] [address] [facility], [address] [place] [phone] documented in this [...] For 1 dose $Given 07/01/2024 6:55 PM APARTMENT LEASING SPECIALIST 50 mg heparin lock flush 100 unit/mL injection 100 Units 100 Units, Intravenous, ONCE, On 07/01/24 at 2130, For 1 dose $Given 07/01/2024 9:40 PM APARTMENT LEASING SPECIALIST 100 Units hydromorphone (DILAUDID) injection 2 mg 2 mg, Intravenous, ONCE, On 07/01/24 at 1835, For 1 dose $Given 07/01/2024 6:54 PM APARTMENT LEASING SPECIALIST 2 mg hydromorphone (DILAUDID) injection 2 mg 2 mg, Intravenous, EVERY 1 HOUR PRN, severe pain, Starting on 07/01/24 at 2001, For 2 doses $Given 07/01/2024 9:22 PM APARTMENT LEASING SPECIALIST 2 mg $Given 07/01/2024 8:05 PM APARTMENT LEASING SPECIALIST 2 mg lactated ringers BOLUS 1,000 mL Intravenous, 1,000 mL, ONCE, at 1,000 mL/hr, Administer over 1 Hours, On 07/01/24 at 183, For 1 dose $New Bag 07/01/2024 6:55 PM APARTMENT LEASING SPECIALIST 1,000 mLs 1000 mL/hr ondansetron (ZOFRAN) injection 8 mg 8 mg, Intravenous, ONCE, Administer over 2-5 Minutes, On 07/01/24 at 183, For 1 dose $Given 07/01/2024 6:54 PM APARTMENT LEASING SPECIALIST 8 mg documented in this encounter Active and Recently Administered Medications Times are shown in APARTMENT LEASING SPECIALIST. Scheduled Medication Order 06/29/2024 06/30/2024 07/01/2024 diphenhydrAMINE [...] RN) documented in this encounter Care Teams Drugless Doctor Relationship Specialty Start Date End Date Veronica Joseph MD [address] [place] [address] PCP - General Family Medicine 06/18/24 Mor Ramsey Medical Student 04/03/24 Case Samuel MD [address] [place] [address], [address] [place] [address] Assigned Pediatric Specialist Provider 05/18/24 Juhi Benson, SOFIA Specialty Orbitread Operator Hematology & Oncology 05/29/24 documented as of this encounter
--- OUTSIDE RECORDS SUMMARY | 2024-07-03 21:35 | XMS_ITS | Encounter Summary ---
Author Organization [employer] Address [address] [place] [address]. [place] [address] Care Team Providers Care Morning Nanny Name Role Phone No Ref-Primary, Physician Primary Care Provider Mor Ramsey Unavailable Unavailable Case Samuel MD Unavailable [phone] Juhi Benson RN Unavailable Unavailable Veronica Joseph MD Primary Care Provider [phone] Reason for Visit * Reason Comments Shortness of Breath Chest Pain Fever * Auth/Cert Specialty Diagnoses / Procedures Referred By Contac t Referred To Contact EMERGENCY MEDICINE Diagnoses Sickle cell pain crisis (H) [facility] Emergency Department [address] [place] [address] Phone: tel: Referral ID Status Reason Start Date Expiration Date Visits Re quested Visits Authorized [id number] 1 1 Encounter Details Date Type Department Care Team (Late st Contact Info) Description 06/16/2024 4:46 PM LAST MARKER - 06/20/2024 11:00 AM LAST MARKER Hospital Encounter [facility] 7C Med Surg [address] [place] [phone] Abimael Schofield MD [address] [place] [id number] Esdras Markham MD [address] [place] [address] German Hall MD [address] [place] [address] [address] [place] [address] Sickle cell pain crisis (H) [...] on file Legal Sex Female 8:25 AM LAST MARKER Gender Identity Not on file Sexual Orientation Not on file documented as of this encounter Last Filed Vital Signs Vital Sign Reading Time Taken Comments Blood Pressure 106/62 06/20/2024 6:00 AM LAST MARKER Pulse 78 06/19/2024 2:25 PM LAST MARKER Temperature 36.7 C (98 F) 06/20/2024 6:00 AM LAST MARKER Respiratory Rate 18 06/20/2024 6:00 AM LAST MARKER Oxygen Saturation 99% 06/20/2024 6:00 AM LAST MARKER Inhaled Oxygen Concentration - - Weight - - Height - - Body Mass Index - - documented in this encounter Discharge Summaries * Rl Elias MD - 06/20/2024 8:39 AM CST [facility] Discharge Summary - Medicine & [...] pain can be managed with her DIRECTOR FRAUD dilaudid 4mg q6h PRN. Hematology team is aware of discharge today and will arrange follow up. - continue DIRECTOR FRAUD dilaudid 4 mg Q6H PRN & further supportive cares as needed - follow up with Hematology as scheduled by their team - Continue DIRECTOR FRAUD hydroxyurea 1000mg BID - Continue DIRECTOR FRAUD folic acid 1mg daily - Continue topical diclofenac, lidocaine, icy hot PRN #ANGIE, resolved Likely prerenal with decreased PO intake. Cr 0.92 on admission, baseline ~0.61- 0.7. Improved with maintenance fluids. Encouraged adequate water intake at home. #Insomnia - melatonin 3 mg PRN #Anxiety - Continue DIRECTOR FRAUD fluoxetine Consultations This Hospital Stay HEMATOLOGY ADULT IP CONSULT CARE MANAGEMENT / SOCIAL WORK IP CONSULT Code Status Full Code Nivia Carvajal, MS3 Ricardo 1 Hospitalist Service [facility] 7C MED SURG [address] [facility] [id number] Physical Exam Vital Signs: Temp: 98 ??F [...] upon discharge: activity as tolerated Follow Up ([facility]) Follow up with primary care provider, Veronica Joseph, within 7 days for hospital follow- up. Thefollowing labs/tests are recommended: CBC. Appointments on [place] and/or [facility] (with [facility] or [facility] provider or service). Call [phone] if you haven't heard regarding these appointments [...] inadequate. naloxone (NARCAN) 4 MG/0.1ML nasal spray Alta 1 spray (4 mg) into one nostril [...] Aydee Coughlin MD at 06/20/2024 11:52 AM LAST MARKER MARKER MARKER Associated attestation - Aydee Coughlin MD - 06/20/2024 11:52 AM LAST MARKER Physician Attestation I saw and evaluated this [...] 05/01/2024 naloxone (NARCAN) 4 MG/0.1ML nasal spray Alta 1 spray (4 mg) into one nostril [...] stated on the papers. Home supply :N/A. MARKER * Araceli Ramires MD - 06/20/2024 8:42 [...] Overall, I spent 35 minutes today (DOS) [id number] and/or coordinating care as documented above and specifically listed as below: --Reviewing documentation related to patient's history and this current admission available in [facility] --Review and clinical interpretation of pertinent laboratory test results from this admission --Discussion with the patient --Discussion with patient's primary team --Documentation in the electronic health record MARKER * Linda Lomax MD - 06/19/2024 7:43 [...] Service (when I saw the patient): 06/19/24 [facility] Progress Note - Medicine Service, [...] PRN for supportive measures - Continue DIRECTOR FRAUD hydroxyurea 1000mg BID - Continue DIRECTOR FRAUD folic acid 1mg daily - Monitoring CBC [...] 3 mg PRN #Anxiety - Continue DIRECTOR FRAUD fluoxetine - Benadryl PRN per Pain Plan [...] Nivia Carvajal, MS3 Medical Student Medicine Service, [facility] TEAM [address] [place] [address] Securely message with [employer] (more info) Text page via [facility] Paging/Directory See signed in provider for [...] previous visit (from the past 24 hours). MARKER * Tejal Curry RN - 06/18/2024 6:54 PM CST Shift: [id number] VS: Temp: 98.3 ??F (36.8 ??C) Temp [...] light appropriately Plan: Continue POC; manage pain MARKER * Linda Lomax MD - 06/18/2024 10:18 AM CST [facility] Progress Note - Medicine Service, RICARDO [...] senna PRN for supportive measures -Continue DIRECTOR FRAUD hydroxyurea 1000mg BID -Continue DIRECTOR FRAUD folic acid 1mg daily - monitoring CBC w/diff, LDH, reticulocyte count, and LDH daily - type & screened, consented - continue topical diclofenac, lidocaine, icy hot PRN - blood cultures, urine culture >> NGTD #ANGIE, resolved Likely prerenal with decreased PO intake. - mIVF with LR - CMP in AM #Insomnia - Continue DIRECTOR FRAUD fluoxetine - melatonin 3 mg PRN Diet: [...] Hall . Linda Lomax MD Medicine Service, [address] Securely message with [employer] (more info) Text page via [facility] Paging/Directory See signed in provider for [...] German Hall MD at 06/18/2024 3:16 PM LAST MARKER MARKER MARKER Associated attestation - German Hall MD - 06/18/2024 3:16 PM LAST MARKER Attestation: This patient has been seen and [...] Overall, I spent 35 minutes today (DOS) [id number] and/or coordinating care as documented above and specifically listed as below: --Reviewing documentation related to patient's history and this current admission available in [facility] --Review and clinical interpretation of pertinent laboratory test results from this admission --Discussion with the patient --Discussion with patient's primary team --Documentation in the electronic health record MARKER * Rl Elias MD - 06/17/2024 11:31 AM CST [facility] Progress Note - [facility] Date of Admission: [...] senna PRN for supportive measures -Continue DIRECTOR FRAUD hydroxyurea 1000mg BID -Continue DIRECTOR FRAUD folic acid 1mg daily - monitoring CBC w/diff, LDH, reticulocyte count, and LDH daily - type & screened, consented - continue topical diclofenac, lidocaine, icy hot PRN - blood cultures, urine culture to evaluate any further source of infection #ANGIE Likely prerenal with decreased PO intake. - mIVF with LR - CMP in AM #Insomnia - Continue DIRECTOR FRAUD fluoxetine - melatonin 3 mg PRN Diet: [...] Hall . RL ELIAS MD Medicine Service, [address] Securely message with [employer] ([employer] info) Text page via [facility] Paging/Directory See signed in provider for [...] EXAM: XR CHEST 2 VIEWS LOCATION: [facility] DATE: 06/16/2024 INDICATION: chest pain COMPARISON: 06/12/2024 Impression IMPRESSION: Left chest port catheter in stable position. Stable position of right central venous catheter. No airspace opacity, pleural effusion or pneumothorax. Cosigned by German Hall MD at 06/18/2024 3:07 PM LAST MARKER MARKER MARKER MARKER Associated attestation - German Hall MD - 06/18/2024 3:07 PM LAST MARKER Attestation: This patient has been seen and evaluated by me, German Hall MD. Discussed with the house staff team or resident(s) and agree with the findings and plan in this note. I have reviewed today's Medications, Vital Signs, and Labs. DOS 06/17 documented in this encounter H&P Notes * Laquita Kelley MD - 06/16/2024 7:59 PM CST [facility] History and Physical - Medicine [...] -mIVF with NS at 100ml/hr -Continue DIRECTOR FRAUD hydroxyurea 1000mg BID -Continue DIRECTOR FRAUD folic acid 1mg -PRN zofran for nausea -PRN benadryl for itching #ANGIE Likely prerenal with decreased PO intake. -mIVF with NS -Monitor #Insomnia -Continue DIRECTOR FRAUD fluoxetine Diet: Regular DVT Prophylaxis: Enoxaparin (Lovenox) SQ Santiago Catheter: Not present Fluids: NS at 100ml/hr Lines: PRESENT Cardiac Monitoring: None Code Status: Full Clinically Significant Risk Factors Present on Admission # Anemia: based on hgb <11 # Financial/Environmental Concerns: Disposition Plan Expected Discharge Date: 06/18/2024 The patient's care was discussed with the Attending Physician, Dr. Markham . Laquita Kelley MD Medicine Service, [facility] Securely message with [employer] (more info) Text page via [facility] Paging/Directory See signed in provider for [...] 4 MG/0.1ML nasal spray No No Sig: Alta 1 spray (4 mg) into one nostril [...] Esdras Markham MD at 06/17/2024 11:00 AM LAST MARKER MARKER MARKER Associated attestation - Esdras Markham MD - 06/17/2024 11:00 AM LAST MARKER Physician Attestation I saw this patient with [...] this encounter Consult Notes * Adelaide Acevedo, WELDER ASSEMBLER - 06/18/2024 10:26 AM CSTAssociated Order(s): CARE [...] Communication Assessment Patient's communication style: spoken language (Faroese or Bilingual) Cognitive Cognitive/Neuro/Behavioral: WDL Living Environment: [...] Depression: Not at risk (04/11/2024) [facility] PHQ-2 PHQ-2 TOTAL SCORE: 1 Housing Stability: [...] Social Connections: Socially Integrated (03/28/2024) Received from [employer] [facility] Social Connections Do you often feel [...] Care management signing off. LAURA Palacios 06/18/2024 Family Consumer Science Fcs Teacher Social Work and Care Management Department SEARCHABLE in [facility] - search SOCIAL WORK [place] ([phone]) Wednesday and Wednesday Units: 4A Vocera, 4C Vocera, & 4E Vocera Units: 5A 8259-4411 Vocera, 5A 8528-4861 Vocera , BMT SW 1 BMT SW 2, BMT SW 3 & BMT SW 4 5C OffService 5401 - 5416 5C Off Service [phone] Units: 6A Vocera & 6B Vocera Units: 6C Vocera Units: 7A Vocera & 7B Vocera Units: 7C Med Surg 7401 thru 7418 and 7C Med Surg 7502 thru 7521 Unit: [place] ED Vocera & [place] Obs Vocera [facility] ([phone]) Wednesday and Wednesday Units: 5 Ortho Vocera, 5 Med Surg Vocera & WB ED Vocera Units: 6 Med Surg Vocera, 8 Med Surg Vocera, & 10 ICU Vocera After hours Vocera [facility] and After Hours Vocera [place] Please NOTE changes to times below: Wednesday & Wednesday (1629 - 2029) Wed-Wed ([phone]) [facility] Recognized Holidays (7427-9398) Units: ALL - see above VOCERA links to units MARKER * Drake Nina MD - 06/17/2024 8:55 AM CSTAssociated Order(s): HEMATOLOGY ADULT IP CONSULT Images from the original note were not included. Hematology Consult Note Date of Service: 06/17/2024 Patient: Gianna Hernández Admission Date: 06/16/2024 Hospital Day # 1 Hematology Diagnosis: Sickle Cell Disease Primary Outpatient Combination Operator: Dr. Samuel Reason for Consult: Vasoocclusive [...] care coordination note. Please continue her DIRECTOR FRAUD hydrea and folic acid. Recommendations: - Please follow pain plan as outlined in the care coordination note in the summary section. - Ordered 1 unit PRBC along with blood consent which is placed in the chart. - Please continue DIRECTOR FRAUD hydrea 1000 mg BID, Folate 1mg daily. [...] Drake Nina MD Hematology/Oncology/BMT Fellow PGY4 Pager: [phone] History of Present Illness: Gianna Hernández is [...] Currently Drug use: Never Social History Narrative Qysa-ak-mekk mom. Recently moved to [place] from [place], [place]. She is 1 of 9 [...] Socially Integrated (03/28/2024) [facility] Social [facility]ctions Do you often feel [...] 25 mg 25 mg Oral Q6H PRN aLquita Kelley MD Or diphenhydrAMINE (BENADRYL) injection 25 [...] inadequate. naloxone (NARCAN) 4 MG/0.1ML nasal spray Alta 1 spray (4 mg) into one nostril [...] Araceli Ramires MD at 06/17/2024 11:14 AM LAST MARKER MARKER MARKER Associated attestation - Araceli Ramires MD - 06/17/2024 11:14 AM LAST MARKER Hematology Consult Attending Attestation I reviewed the [...] Overall, I spent 60 minutes today (DOS) [id number] and/or coordinating care as documented above and specifically listed as below: --Reviewing documentation related to patient's history and this current admission available in [facility] --Review and clinical interpretation of [...] time: Means of arrival: Comments: G 41 MARKER * Abimael Schofield MD - 06/16/2024 5:18 PM CST ED Provider Note [facility] History Chief Complaint Patient presents with [...] sinus tachycardia rate of 122 with a CA interval of 0.128 and a QRS duration of 0.074. The patient had a normal axis with no acute ST or T wave changes significant for ischemia. This is read by me personally. Procedures Results for orders placed or performed during the hospital encounter of 06/16/24 Chest XR, PA & LAT Status: None Narrative EXAM: XR CHEST 2 VIEWS LOCATION: [facility] DATE: 06/16/2024 INDICATION: chest pain COMPARISON: [...] Range ABO/RH(D) A POS SPECIMEN EXPIRATION DATE [id number] CBC with platelets differential Status: Abnormal (In process) Narrative The following orders were created for panel order CBC with platelets differential. Procedure Abnormality Status --------- ------ CBC with platelets and d...[[id number]] Abnormal Preliminary result RBC and Platelet Morphology[[id number]] In process Please view results for these tests on the individual orders. ABO/Rh type and screen Status: None (In process) Narrative The following orders were created for panel order ABO/Rh type and screen. Procedure Abnormality Status --------- ------ Adult Type and Screen[[id number]] Preliminary result Please view results for these tests on the individual orders. Medications sodium chloride (PF) 0.9% PF flush 3 mL (has no administration in time range) sodium chloride (PF) 0.9% PF flush 3 mL (has no administration in time range) sodium chloride 0.9% BOLUS 500 mL (500 mLs Intravenous $New Bag 06/16/24 1697) sodium chloride 0.9 % infusion (has no administration in time range) hydromorphone (DILAUDID) injection 2 mg (2 mg Intravenous $Given 06/16/24 0612) Critical care was not performed. Medical Decision [...] chest syndrome Admit Med Abimael Schofield MD [facility] EMERGENCY DEPARTMENT 06/16/2024 Abimael Schofield MD 06/16/24 1846 MARKER * Yelitza Manriquez RN - 06/16/2024 4:37 [...] WDL WDL Cognitive/Neuro/Behavioral WDL Cognitive/Neuro/Behavioral WDL WDL MARKER documented in this encounter Miscellaneous Notes * [...] verbalized hope to discharge to home today MARKER * Summary of Care - Rene Morocho RN - 06/20/2024 12:38 AM CST (Change note type to summary of care) Reason for admission: Sickle cell crisis Admitted from: [facility] Report received from: Sarai Aburto [...] (January-July only): No, pt declined Detailed Belongings: [place] sweater, brown jacket, sweatpants, glasses, wallet, phone, 2 chargers, air pods MARKER * Plan of Care - Sarai Shrestha RN - 06/20/2024 12:11 AM CST Goal Outcome Evaluation: BP 103/79,HR 87bpm, resp 18,O2 99 RA Shift:9184-0443 Alert and oriented x4. Independent with ADLs. VSS. Pain managed with Q 2 hrs IV Dilaudid. C/O nausea PRN Zofran administered;effective. R chest port infusing LR @ 75 ml/hr. Report given to Rene BLACK in 7C. MARKER * Plan of Care - Amelia Gannon RN - 06/19/2024 6:26 AM CST Images from the original note were not included. Shift: 8235-2812 VS: BP 118/85 (BP Location: Left arm) Pulse 99 Temp 98.2 ??F (36.8 ??C) (Oral) Resp 18 OkC784% Pain: Sickle cell pain. Tx with scheduled dilaudid q2hr Neuro: WDL, A&Ox4 Cardiac: WDL Respiratory: WDL, on RA, on pulse ox GI/: WDL, Voiding spontaneously Diet/Appetite: Regular diet LDA's: R. Chest port infusing LR @ 75 Skin: WDL Activity: Independent Tests/Procedures: Pertinent Labs/Lab Collection: Plan: Goal Outcome Evaluation: MARKER * Plan of Care - Adelaide Acevedo MSW - 06/18/2024 11:05 AM CST Goal Outcome Evaluation: Plan of Care Reviewed With: patient Overall Patient Progress: improvingOverall Patient Progress: improving Pt anticipates discharge home w/ family once med ready MARKER * Plan of Care - Amelia Gannon RN - 06/18/2024 6:51 AM CST Shift: 4745-5524 VS: BP 115/66 (BP Location: Right arm, [...] Platelet, Creatinine, Reticulocyte Plan: Goal Outcome Evaluation: MARKER * Plan of Care - Lowell Pepper RN - 06/17/2024 9:37 PM CSTSummary: 2001-4485 BP 110/64 (BP Location: Right arm, Patient [...] Goal: Optimal Comfort and Wellbeing Outcome: Progressing MARKER * Provider Notification - Lowell Pepper RN - 06/17/2024 10:00 AM CST 06/17/24 0857 Critical Test Results/Notification Critical Lab Result (Lab Name and Value) Hgb 6.3 What Time Did The Lab Notify You? (follow up page. to day time provider.) Provider Notified yes Date of Provider Notification 06/17/24 Time of Provider Notification 0848 Mechanism of Provider notification telephone (via [employer]) What Provider Did You Notify? Neptali Elias MD Response aware (per primary teams. Awaiting recommendations from hematology team.) MARKER * Plan of Care - Zaynab Veliz RN - 06/17/2024 6:55 AM CST Goal Outcome Evaluation: Plan of Care Reviewed With: patient Overall Patient Progress: improving Outcome Evaluation: Pt presented to ED with acute onset left sided chest pain & sickle cell pain crisis Shift: 5428-0078 VS: Stable on RA, afebrile Neuro: A&Ox4 Labs: hemoglobin 6.3, provider notified Pain/Nausea: pain rated 8-9/10 PRN: benadryl X2, zofran x 1 Diet: Regular IV Access: none Infusion(s): NACL 100ml/hr Lines/Drains: L-chest wall GI/: voids without difficulty Skin: intact Mobility: up ad chandler Plan: Continue POC MARKER * Provider Notification - Zaynab Veliz RN - 06/17/2024 6:47 AM LAST MARKER Jovan encinas lab called, critical value, pt hemoglobin 6.3. MARKER * Medication Scribe - Admission Medication History - Yennifer Edwards - 06/17/2024 4:14 AM CST Medication Scribe Admission Medication History Admission medication history is complete. The information provided in this note is only as accurateas the sources available at the time of the update. Information Source(s): Patient via in-person Pertinent Information: per pt+CE, pt reported taking medications on DIRECTOR FRAUD medication list as directed. No DRH. Changes made to DIRECTOR FRAUD medication list: Added: None Deleted: None Changed: None Allergies reviewed with patient and updates made in EHR: yes Medication History Completed By: Yennifer Edwards 06/17/2024 4:14 AM DIRECTOR FRAUD Med List Medication Sig Last Dose/Taking cefpodoxime [...] 1 tablet by mouth daily. 06/16/2024 Morning MARKER MARKER documented in this encounter Plan of Treatment Upcoming Encounters Date Type Department Care Team (Late st Contact Info) Description 07/04/2024 9:00 AM CDT Lab [facility] [address] [phone] Case Samuel MD [address] [place] [address], [address] [place] [address] 07/06/2024 8:00 AM CDT Appointment [facility] Advanced Treatment [address] [phone] Case Samuel MD [address] [place] [address], [address] [place] [address] 07/10/2024 11:30 AM CDT Oncology Visit [facility] [address] [place] [address] Case Samuel MD [address] [facility] [address], [address] [place] [address] documented as of this encounter Goals Goal Patient Goal Type Associated Problems Recent Progress Patient-Stated? Author Pain Management General On track( 025 12:40 PM LAST MARKER) Yes Juhi Benson, RN Note: Goal Statement: [...] PLATELETS AND DIFFERENTIAL STAT 06/20/2024 5:48 AM LAST MARKER LACTATE DEHYDROGENASE Routine 06/20/2024 5:48 AM LAST MARKER CBC WITH PLATELETS & DIFFERENTIAL STAT 06/20/2024 5:48 AM LAST MARKER RETICULOCYTE COUNT Routine 06/20/2024 5: 48 AM LAST MARKER COMPREHENSIVE METABOLIC PANEL Routine 06/20/2024 5:48 AM LAST MARKER RBC AND PLATELET MORPHOLOGY STAT 06/19/2024 9:30 AM LAST MARKER CBC WITH PLATELETS AND DIFFERENTIAL STAT 06/19/2024 9:30 AM LAST MARKER LACTATE DEHYDROGENASE STAT 06/19/2024 9:30 AM LAST MARKER CBC WITH PLATELETS & DIFFERENTIAL STAT 06/19/2024 9:30 AM LAST MARKER RETICULOCYTE COUNT STAT 06/19/2024 9: 30 AM LAST MARKER COMPREHENSIVE METABOLIC PANEL STAT 06/19/2024 9:30 AM LAST MARKER PLATELET COUNT STAT 06/19/2024 12:17 AM LAST MARKER CREATININE STAT 06/19/2024 12:17 AM LAST MARKER CBC WITH PLATELETS AND DIFFERENTIAL STAT 06/18/2024 8:24 AM LAST MARKER LACTATE DEHYDROGENASE STAT 06/18/2024 8:24 AM LAST MARKER CBC WITH PLATELETS & DIFFERENTIAL STAT 06/18/2024 8:24 AM LAST MARKER RETICULOCYTE COUNT STAT 06/18/2024 8: 24 AM LAST MARKER DIFFERENTIAL STAT 06/18/2024 8:24 AM LAST MARKER COMPREHENSIVE METABOLIC PANEL STAT 06/18/2024 8:24 AM LAST MARKER ROUTINE UA WITH MICROSCOPIC REFLEX TO CULTURE STAT 06/17/2024 1:11 PM LAST MARKER TRANSFUSE RED BLOOD CELLS (UNIT) STAT 06/17/2024 10:26 AM LAST MARKER PREPARE RED BLOOD CELLS (UNIT) STAT 06/17/2024 9:12 AM LAST MARKER TRANSFERRIN Add-On 06/17/2024 6:16 AM LAST MARKER IRON AND IRON BINDING CAPACITY Add-On 06/17/2024 6:16 AM LAST MARKER BASIC METABOLIC PANEL STAT 06/17/2024 6:16 AM LAST MARKER CBC WITH PLATELETS STAT 06/17/2024 6: 16 AM LAST MARKER TROPONIN T, HIGH SENSITIVITY STAT 06/16/2024 9:33 PM LAST MARKER XR CHEST 2 VIEWS STAT 06/16/2024 6:09 PM LAST MARKER RBC AND PLATELET MORPHOLOGY STAT 06/16/2024 5:37 PM LAST MARKER CBC WITH PLATELETS AND DIFFERENTIAL STAT 06/16/2024 5:37 PM LAST MARKER TYPE AND SCREEN, ADULT STAT 5:37 PM LAST MARKER TROPONIN T, HIGH SENSITIVITY STAT 06/16/2024 5:37 PM LAST MARKER CBC WITH PLATELETS & DIFFERENTIAL STAT 06/16/2024 5:37 PM LAST MARKER PROLACTIN STAT 06/16/2024 5:37 PM LAST MARKER COMPREHENSIVE METABOLIC PANEL STAT 06/16/2024 5:37 PM LAST MARKER BLOOD CULTURE STAT 06/16/2024 5:37 PM LAST MARKER ABO/RH TYPE AND SCREEN STAT 5:37 PM LAST MARKER EKG 12-LEAD, TRACING ONLY STAT 06/16/2024 4:55 PM LAST MARKER documented in this encounter Results * (ABNORMAL) CBC with platelets and differential (06/20/2024 5:48 AM LAST MARKER) [facility] WBC Count 9.3 4.0 - 11.0 10e3/uL 06/20/2024 6:05 AM LAST MARKER [facility] RBC Count 2.54(L) 3.80 - 5.20 10e6/uL 06/20/2024 6:05 AM LAST MARKER [facility] Hemoglobin 8.0(L) 11.7 - 15.7 g/dL 06/20/2024 6:05 AM LAST MARKER [facility] Hematocrit 23.2(L) 35.0 - 47.0 % 06/20/2024 6:05 AM LAST MARKER [facility] MCV 91 78 - 100 fL 06/20/2024 6:05 AM LAST MARKER [facility] MCH 31.5 26.5 - 33.0 pg 06/20/2024 6:05 AM LAST MARKER [facility] MCHC 34.5 31.5 - 36.5 g/dL 06/20/2024 6:05 AM LAST MARKER [facility] RDW 18.4(H) 10.0 - 15.0 % 06/20/2024 6:05 AM LAST MARKER [facility] Platelet Count 435 150 - 450 10e3/uL 06/20/2024 6:05 AM LAST MARKER [facility] % Neutrophils 47 % 06/20/2024 6:05 AM LAST MARKER [facility] % Lymphocytes 43 % 06/20/2024 6:05 AM LAST MARKER [facility] % Monocytes 6 % 06/20/2024 6:05 AM LAST MARKER [facility] % Eosinophils 3 % 06/20/2024 6:05 AM LAST MARKER [facility] % Basophils 1 % 06/20/2024 6:05 AM LAST MARKER [facility] % Immature Granulocytes 1 % 06/20/2024 6:05 AM LAST MARKER [facility] NRBCs per 100 WBC 1(H) <1 /100 025 6:05 AM LAST MARKER [facility] Absolute Neutrophils 4.4 1.6 - 8.3 10e3/uL 06/20/2024 6:05 AM LAST MARKER [facility] Absolute Lymphocytes 4.0 0.8 - 5.3 10e3/uL 06/20/2024 6:05 AM LAST MARKER [facility] Absolute Monocytes 0.5 0.0 - 1.3 10e3/uL 06/20/2024 6:05 AM LAST MARKER [facility] Absolute Eosinophils 0.3 0.0 - 0.7 10e3/uL 06/20/2024 6:05 AM LAST MARKER [facility] Absolute Basophils 0.1 0.0 - 0.2 10e3/uL 06/20/2024 6:05 AM LAST MARKER [facility] Absolute Immature Granulocytes 0.1 <=0.4 10e3/uL 06/20/2024 6:05 AM LAST MARKER [facility] Absolute NRBCs 0.1 10e3/uL 06/20/2024 6:05 AM LAST MARKER [facility] Blood (Portacath) IVAD (Port) / Unknown 06/20/2024 5:48 AM LAST MARKER 06/20/2024 5:55 AM LAST MARKER Rl Elias MD LAB - BLOOD ORDER SYD Final Result [facility] [place] [facility] [address] [facility][1], Room [address] [phone] * (ABNORMAL) Reticulocyte count (06/20/2024 5:48 AM LAST MARKER) % Reticulocyte 9.6(H) 0.5 - 2.0 % 06/20/2024 6:37 AM LAST MARKER [facility] Absolute Reticulocyte 0.236(H) 0.025 - 0.095 10e6/uL 06/20/2024 6:37 AM LAST MARKER [facility] Blood (Portacath) IVAD (Port) / Unknown 06/20/2024 5:48 AM LAST MARKER 06/20/2024 5:55 AM LAST MARKER Rl Elias MD LAB - BLOOD ORDER SYD Final Result Performing Organization Address City/[facility]/ZIP Co de Phone Number [facility] [place] [facility] [address] [facility][1], Room [address] * (ABNORMAL) Comprehensive metabolic panel (06/20/2024 5:48 AM LAST MARKER) Sodium 133(L) 135 - 145 mmol/L 06/20/2024 6:35 AM LAST MARKER [facility] Potassium 4.6 3.4 - 5.3 mmol/L 06/20/2024 6:35 AM LAST MARKER [facility] Carbon Dioxide (CO2) 21(L) 22 - 29 mmol/L 06/20/2024 6:35 AM LAST MARKER [facility] Anion Gap 8 7 - 15 mmol/L 06/20/2024 6:35 AM LAST MARKER [facility] Urea Nitrogen 14.6 6.0 - 20.0 mg/dL 06/20/2024 6:35 AM LAST MARKER [facility] Creatinine 0.66 0.51 - 0.95 mg/dL 06/20/2024 6:35 AM LAST MARKER [facility] GFR Estimate >90 >60 mL/min/1.7 3m2 06/20/2024 6:35 AM LAST MARKER [facility] Comment:eGFR calculated us2020 CKD-EPI equation. Calcium 8.7(L) 8.8 - 10.4 mg/dL 06/20/2024 6:35 AM LAST MARKER [facility] Chloride 104 98 - 107 mmol/L 06/20/2024 6:35 AM LAST MARKER [facility] Glucose 100(H) 70 - 99 mg/dL 06/20/2024 6:35 AM LAST MARKER [facility] Alkaline Phosphatase 98 40 - 150 U/L 06/20/2024 6:35 AM LAST MARKER [facility] AST 67(H) 0 - 45 U/L 06/20/2024 6:35 AM LAST MARKER [facility] ALT 40 0 - 50 U/L 06/20/2024 6:35 AM LAST MARKER [facility] Protein Total 7.2 6.4 - 8.3 g/dL 06/20/2024 6:35 AM LAST MARKER [facility] Albumin 3.9 3.5 - 5.2 g/dL 06/20/2024 6:35 AM LAST MARKER [facility] Bilirubin Total 1.5(H) <=1.2 mg/dL 06/20/2024 6:35 AM LAST MARKER [facility] Blood (Portacath) IVAD (Port) / Unknown 06/20/2024 5:48 AM LAST MARKER 06/20/2024 5:55 AM LAST MARKER us Rl Elias MD LAB - BLOOD ORDER SYD Final Result [facility] [place] [facility] Lab [address] [facility][1], [address] [place] [address] * (ABNORMAL) Lactate Dehydrogenase (06/20/2024 5:48 AM LAST MARKER) Lactate Dehydrogenase 571(H) 0 - 250 U/L 06/20/2024 6:35 AM LAST MARKER [facility] Blood (Portacath) IVAD (Port) / Unknown 06/20/2024 5:48 AM LAST MARKER 06/20/2024 5:55 AM LAST MARKER Rl Elias MD LAB - BLOOD ORDER SYD Final Result [facility] [place] [facility] Lab [address] [facility][1], [address] [phone] * (ABNORMAL) RBC and Platelet Morphology (06/19/2024 9:30 AM LAST MARKER) Pathologist [facility] RBC Morphology Confirmed RBC Indices 06/19/2024 11:43 AM LAST MARKER [facility] Platelet Assessment Automated Count Confirmed. Giant platelets are present.(A) Automated Count Confirmed. Platelet morphology is normal. 06/19/2024 11:43 AM LAST MARKER [facility] Giant Platelets Slight(A) None Seen 11:43 AM LAST MARKER [facility] Elliptocytes None Seen None Seen 06/19/2024 11:43 AM LAST MARKER [facility] Polychromasia Slight(A) None Seen 06/19/2024 11:43 AM LAST MARKER [facility] RBC Fragments Slight(A) None Seen 06/19/2024 11:43 AM LAST MARKER [facility] Reactive Lymphocytes Present(A) None Seen 06/19/2024 11:43 AM LAST MARKER [facility] Sickle Cells Moderate(A) None Seen 06/19/2024 11:43 AM LAST MARKER [facility] Smudge Cells Present(A) None Seen 06/19/2024 11:43 AM LAST MARKER [facility] Target Cells Moderate(A) None Seen 06/19/2024 11:43 AM LAST MARKER [facility] Blood CENTRAL VENOUS CATHETER / Unknown VAD(CVC, PICC) / Unknown 06/19/2024 9:30 AM LAST MARKER 06/19/2024 9:42 AM LAST MARKER Rl Elias MD LAB - BLOOD ORDER SYD Final Result [facility] [place] [facility] [address] [facility][1], Room [address] [phone] * (ABNORMAL) CBC with platelets and differential (06/19/2024 9:30 AM LAST MARKER) [facility] WBC Count 9.9 4.0 - 11.0 10e3/uL 06/19/2024 11:43 AM LAST MARKER [facility] RBC Count 2.55(L) 3.80 - 5.20 10e6/uL 06/19/2024 11:43 AM LAST MARKER [facility] Hemoglobin 8.1(L) 11.7 - 15.7 g/dL 06/19/2024 11:43 AM LAST MARKER [facility] Hematocrit 24.0(L) 35.0 - 47.0 % 06/19/2024 11:43 AM LAST MARKER [facility] MCV 94 78 - 100 fL 06/19/2024 11:43 AM LAST MARKER [facility] MCH 31.8 26.5 - 33.0 pg 06/19/2024 11:43 AM LAST MARKER [facility] MCHC 33.8 31.5 - 36.5 g/dL 06/19/2024 11:43 AM LAST MARKER [facility] RDW 18.4(H) 10.0 - 15.0 % 06/19/2024 11:43 AM LAST MARKER [facility] Platelet Count 471(H) 150 - 450 10e3/uL 06/19/2024 11:43 AM LAST MARKER [facility] % Neutrophils 62 % 06/19/2024 11:43 AM LAST MARKER [facility] % Lymphocytes 28 % 06/19/2024 11:43 AM LAST MARKER [facility] % Monocytes 6 % 06/19/2024 11:43 AM LAST MARKER [facility] % Eosinophils 3 % 06/19/2024 11:43 AM LAST MARKER [facility] % Basophils 1 % 06/19/2024 11:43 AM LAST MARKER [facility] % Immature Granulocytes 1 % 06/19/2024 11:43 AM LAST MARKER [facility] NRBCs per 100 WBC 4(H) <1 /100 025 11:43 AM LAST MARKER [facility] Absolute Neutrophils 6.1 1.6 - 8.3 10e3/uL 06/19/2024 11:43 AM LAST MARKER [facility] Absolute Lymphocytes 2.7 0.8 - 5.3 10e3/uL 06/19/2024 11:43 AM LAST MARKER [facility] Absolute Monocytes 0.6 0.0 - 1.3 10e3/uL 06/19/2024 11:43 AM LAST MARKER [facility] Absolute Eosinophils 0.3 0.0 - 0.7 10e3/uL 06/19/2024 11:43 AM LAST MARKER [facility] Absolute Basophils 0.1 0.0 - 0.2 10e3/uL 06/19/2024 11:43 AM LAST MARKER [facility] Absolute Immature Granulocytes 0.1 <=0.4 10e3/uL 06/19/2024 11:43 AM LAST MARKER [facility] Absolute NRBCs 0.4 10e3/uL 06/19/2024 11:43 AM LAST MARKER [facility] Blood CENTRAL VENOUS CATHETER / Unknown VAD(CVC, PICC) / Unknown 06/19/2024 9:30 AM LAST MARKER 06/19/2024 9:42 AM LAST MARKER Rl Elias MD LAB - BLOOD ORDER SYD Final Result Performing Organization Address City/[facility] Co de Phone Number [facility] [place] [facility] Lab [address] [facility][1], [facility] [address] * (ABNORMAL) Reticulocyte count (06/19/2024 9:30 AM LAST MARKER) % Reticulocyte 9.2(H) 0.5 - 2.0 % 06/19/2024 9:48 AM LAST MARKER [facility] Absolute Reticulocyte 0.234(H) 0.025 - 0.095 10e6/uL 06/19/2024 9:48 AM LAST MARKER [facility] Blood CENTRAL VENOUS CATHETER / Unknown VAD(CVC, PICC) / Unknown 06/19/2024 9:30 AM LAST MARKER 06/19/2024 9:42 AM LAST MARKER Rl Elias MD LAB - BLOOD ORDER SYD Final Result [facility] [place] [facility] Lab [address] [facility][1], [address] * (ABNORMAL) Comprehensive metabolic panel (06/19/2024 9:30 AM LAST MARKER) Sodium 135 135 - 145 mmol/L 06/19/2024 10:13 AM LAST MARKER [facility] Potassium 4.4 3.4 - 5.3 mmol/L 06/19/2024 10:13 AM LAST MARKER [facility] Carbon Dioxide (CO2) 21(L) 22 - 29 mmol/L 06/19/2024 10:13 AM LAST MARKER [facility] Anion Gap 9 7 - 15 mmol/L 06/19/2024 10:13 AM LAST MARKER [facility] Urea Nitrogen 12.3 6.0 - 20.0 mg/dL 06/19/2024 10:13 AM LAST MARKER [facility] Creatinine 0.68 0.51 - 0.95 mg/dL 06/19/2024 10:13 AM LAST MARKER [facility] GFR Estimate >90 >60 mL/min/1.7 3m2 06/19/2024 10:13 AM LAST MARKER [facility] Comment:eGFR calculated 2020 CKD-EPI equation. Calcium 8.9 8.8 - 10.4 mg/dL 06/19/2024 10:13 AM LAST MARKER [facility] Chloride 105 98 - 107 mmol/L 06/19/2024 10:13 AM LAST MARKER [facility] Glucose 100(H) 70 - 99 mg/dL 06/19/2024 10:13 AM LAST MARKER [facility] Alkaline Phosphatase 94 40 - 150 U/L 06/19/2024 10:13 AM LAST MARKER [facility] AST 54(H) 0 - 45 U/L 06/19/2024 10:13 AM LAST MARKER [facility] ALT 31 0 - 50 U/L 06/19/2024 10:13 AM LAST MARKER [facility] Protein Total 7.1 6.4 - 8.3 g/dL 06/19/2024 10:13 AM LAST MARKER [facility] Albumin 3.9 3.5 - 5.2 g/dL 06/19/2024 10:13 AM LAST MARKER [facility] Bilirubin Total 1.5(H) <=1.2 mg/dL 06/19/2024 10:13 AM LAST MARKER [facility] Blood CENTRAL VENOUS CATHETER / Unknown VAD(CVC, PICC) / Unknown 06/19/2024 9:30 AM LAST MARKER 06/19/2024 9:41 AM LAST MARKER Rl Elias MD LAB - BLOOD ORDER SYD Final Result [facility] [place] [facility] Lab [address] [facility][1], Room [address] [phone] * (ABNORMAL) Lactate Dehydrogenase (06/19/2024 9:30 AM LAST MARKER) Lactate Dehydrogenase 507(H) 0 - 250 U/L 06/19/2024 10:13 AM LAST MARKER [facility] Blood CENTRAL VENOUS CATHETER / Unknown VAD(CVC, PICC) / Unknown 06/19/2024 9:30 AM LAST MARKER 06/19/2024 9:41 AM LAST MARKER Rl Elias MD LAB - BLOOD ORDER SYD Final Result Performing Organization Address [facility]/ZIP Co de Phone Number LABORATORY [facility] Core Lab [address] [facility][1], [address] [phone] * (ABNORMAL) Platelet count (06/19/2024 12:17 AM LAST MARKER) Pathologist [facility] Platelet Count 467(H) 150 - 450 10e3/uL 06/19/2024 12:44 AM LAST MARKER [facility] Blood BLOOD SPECIMEN / Unknown Venipuncture / Unknown 06/19/2024 12:17 AM LAST MARKER 06/19/2024 12:26 AM LAST MARKER Laquita Kelley MD LAB - BLOOD ORDERABLES Final Re sult LABORATORY [facility] [place] Core Lab [address] [facility][1], Room [address] [phone] * Creatinine (06/19/2024 12:17 AM LAST MARKER) Creatinine 0.72 0.51 - 0.95 mg/dL 06/19/2024 12:51 AM LAST MARKER [facility] GFR Estimate >90 >60 mL/min/1.7 3m2 06/19/2024 12:51 AM LAST MARKER [facility] Comment:eGFR calculated us2020 CKD-EPI equation. Blood BLOOD SPECIMEN / Unknown Venipuncture / Unknown 06/19/2024 12:17 AM LAST MARKER 06/19/2024 12:26 AM LAST MARKER us Laquita Kelley MD LAB - BLOOD ORDERABLES Final Re sult [facility] [place] Core [facility] [address] [facility][1], [address] [place] [phone] * (ABNORMAL) Manual Differential (06/18/2024 8:24 AM LAST MARKER) % Neutrophils 52 % 06/18/2024 9:35 AM LAST MARKER [facility] % Lymphocytes 39 % 06/18/2024 9:35 AM LAST MARKER [facility] % Monocytes 7 % 06/18/2024 9:35 AM LAST MARKER [facility] % Eosinophils 3 % 06/18/2024 9:35 AM LAST MARKER [facility] % Basophils 0 % 06/18/2024 9:35 AM LAST MARKER [facility] NRBCs per 100 WBC 13(H) <=0 % 06/18/2024 9:35 AM LAST MARKER [facility] Absolute Neutrophils 5.6 1.6 - 8.3 10e3/uL 06/18/2024 9:35 AM LAST MARKER [facility] Absolute Lymphocytes 4.2 0.8 - 5.3 10e3/uL 06/18/2024 9:35 AM LAST MARKER [facility] Absolute Monocytes 0.7 0.0 - 1.3 10e3/uL 06/18/2024 9:35 AM LAST MARKER [facility] Absolute Eosinophils 0.3 0.0 - 0.7 10e3/uL 06/18/2024 9:35 AM LAST MARKER [facility] Absolute Basophils 0.0 0.0 - 0.2 10e3/uL 06/18/2024 9:35 AM LAST MARKER [facility] Absolute NRBCs 1.4(H) <=0.0 10e3/uL 025 9:35 AM LAST MARKER [facility] RBC Morphology Confirmed RBC Indices 06/18/2024 9:35 AM LAST MARKER [facility] Platelet Assessment Automated Count Confirmed. Platelet morphology is normal. Automated Count Confirmed. Platelet morphology is normal. 06/18/2024 9:35 AM LAST MARKER [facility] RBC Fragments Slight(A) None Seen 06/18/2024 9:35 AM LAST MARKER [facility] Polychromasia Slight(A) None Seen 06/18/2024 9:35 AM LAST MARKER [facility] Sickle Cells Moderate(A) None Seen 06/18/2024 9:35 AM LAST MARKER [facility] Blood BLOOD SPECIMEN / Unknown Venipuncture / Unknown 06/18/2024 8:24 AM LAST MARKER 06/18/2024 8:32 AM LAST MARKER us Rl Elias MD LAB - BLOOD ORDER SYD Final Result [facility] [place] Core Lab [address] [facility][1], [address] [place] [address] * (ABNORMAL) CBC with platelets and differential (06/18/2024 8:24 AM LAST MARKER) WBC Count 10.8 4.0 - 11.0 10e3/uL 06/18/2024 9:24 AM LAST MARKER [facility] RBC Count 2.51(L) 3.80 - 5.20 10e6/uL 06/18/2024 9:24 AM LAST MARKER [facility] Hemoglobin 8.1(L) 11.7 - 15.7 g/dL 06/18/2024 9:24 AM LAST MARKER [facility] Hematocrit 23.1(L) 35.0 - 47.0 % 06/18/2024 9:24 AM LAST MARKER [facility] MCV 92 78 - 100 fL 06/18/2024 9:24 AM LAST MARKER [facility] MCH 32.3 26.5 - 33.0 pg 06/18/2024 9:24 AM LAST MARKER [facility] MCHC 35.1 31.5 - 36.5 g/dL 06/18/2024 9:24 AM LAST MARKER [facility] RDW 18.7(H) 10.0 - 15.0 % 06/18/2024 9:24 AM LAST MARKER [facility] Platelet Count 452(H) 150 - 450 10e3/uL 06/18/2024 9:24 AM LAST MARKER [facility] Blood BLOOD SPECIMEN / Unknown Venipuncture / Unknown 06/18/2024 8:24 AM LAST MARKER 06/18/2024 8:32 AM LAST MARKER Rl Elias MD LAB - BLOOD ORDER SYD Final Result Performing Organization Address City/[facility]/ZIP Co de Phone Number U [facility]ATORY [facility] [place] Core Lab [address] [facility][1], [address] * (ABNORMAL) Reticulocyte count (06/18/2024 8:24 AM LAST MARKER) % Reticulocyte 10.0(H) 0.5 - 2.0 % 06/18/2024 8:38 AM LAST MARKER [facility] Absolute Reticulocyte 0.250(H) 0.025 - 0.095 10e6/uL 06/18/2024 8:38 AM LAST MARKER [facility] Blood BLOOD SPECIMEN / Unknown Venipuncture / Unknown 06/18/2024 8:24 AM LAST MARKER 06/18/2024 8:32 AM LAST MARKER Rl Elias MD LAB - BLOOD ORDER SYD Final Result [facility] [place] [facility] Lab [address] [facility][1], [address] * (ABNORMAL) Comprehensive metabolic panel (06/18/2024 8:24 AM LAST MARKER) Sodium 133(L) 135 - 145 mmol/L 06/18/2024 9:02 AM LAST MARKER [facility] Potassium 4.3 3.4 - 5.3 mmol/L 06/18/2024 9:02 AM LAST MARKER [facility] Carbon Dioxide (CO2) 21(L) 22 - 29 mmol/L 06/18/2024 9:02 AM LAST MARKER [facility] Anion Gap 7 7 - 15 mmol/L 06/18/2024 9:02 AM LAST MARKER [facility] Urea Nitrogen 9.2 6.0 - 20.0 mg/dL 06/18/2024 9:02 AM LAST MARKER [facility] Creatinine 0.65 0.51 - 0.95 mg/dL 06/18/2024 9:02 AM LAST MARKER [facility] GFR Estimate >90 >60 mL/min/1.7 3m2 06/18/2024 9:02 AM LAST MARKER [facility] Comment:eGFR calculated us2020 CKD-EPI equation. Calcium 8.7(L) 8.8 - 10.4 mg/dL 06/18/2024 9:02 AM LAST MARKER [facility] Chloride 105 98 - 107 mmol/L 06/18/2024 9:02 AM LAST MARKER [facility] Glucose 92 70 - 99 mg/dL 06/18/2024 9:02 AM LAST MARKER [facility] Alkaline Phosphatase 86 40 - 150 U/L 06/18/2024 9:02 AM LAST MARKER [facility] AST 45 0 - 45 U/L 06/18/2024 9:02 AM LAST MARKER [facility] ALT 27 0 - 50 U/L 06/18/2024 9:02 AM LAST MARKER [facility] Protein Total 7.0 6.4 - 8.3 g/dL 06/18/2024 9:02 AM LAST MARKER [facility] Albumin 3.9 3.5 - 5.2 g/dL 06/18/2024 9:02 AM LAST MARKER [facility] Bilirubin Total 1.4(H) <=1.2 mg/dL 06/18/2024 9:02 AM LAST MARKER [facility] Blood BLOOD SPECIMEN / Unknown Venipuncture / Unknown 06/18/2024 8:24 AM LAST MARKER 06/18/2024 8:32 AM LAST MARKER Rl Elias MD LAB - BLOOD ORDER SYD Final Result [facility] [place] [facility] Lab [address] [facility][1], [address] [place] [address] * (ABNORMAL) Lactate Dehydrogenase (06/18/2024 8:24 AM LAST MARKER) Lactate Dehydrogenase 491(H) 0 - 250 U/L 06/18/2024 9:02 AM LAST MARKER [facility] Blood BLOOD SPECIMEN / Unknown Venipuncture / Unknown 06/18/2024 8:24 AM LAST MARKER 06/18/2024 8:32 AM LAST MARKER Rl Elias MD LAB - BLOOD ORDER SYD Final Result [facility] [place] Core Lab [address] [facility], [address] [place] [address], [facility] * Transfuse red blood cells (unit), Sickle Cell (Hgb S) Negative (06/17/2024 2:33 PM LAST MARKER) Drake Nina MD BLOOD TRANSFUSION ORDERABLES Final Result * Transfuse red blood cells (unit), 1 Units, Sickle Cell (Hgb S) Negative (06/17/2024 2:33 PM LAST MARKER) Drake Nina MD BLOOD TRANSFUSION ORDERABLES Final Result * (ABNORMAL) UA with Microscopic reflex to Culture (06/17/2024 1:11 PM LAST MARKER) Color Urine Light Yellow Colorless, Straw, Light Yellow, Yellow 06/17/2024 1:48 PM LAST MARKER [facility] Appearance Urine Clear Clear 06/17/19 25 1:48 PM LAST MARKER [facility] Glucose Urine Negative Negative mg/dL 06/17/2024 1:48 PM LAST MARKER [facility] Bilirubin Urine Negative Negative 1:48 PM LAST MARKER [facility] Ketones Urine Negative Negative mg/dL 06/17/2024 1:48 PM LAST MARKER [facility] Specific [place] Urine 1.009 1.003 - 1.035 06/17/2024 1:48 PM LAST MARKER [facility] Blood Urine Trace(A) Negative 06/17/2024 1:48 PM LAST MARKER [facility] pH Urine 6.5 5.0 - 7.0 06/17/2024 1:48 PM LAST MARKER [facility] Protein Albumin Urine Negative Negative mg/dL 06/17/2024 1:48 PM LAST MARKER [facility] Urobilinogen Urine Normal Normal, 2.0 mg/dL 06/17/2024 1:48 PM LAST MARKER [facility] Nitrite Urine Negative Negative 06/17/2024 1:48 PM LAST MARKER [facility] Leukocyte Esterase Urine Small(A) Negative 06/17/2024 1:48 PM LAST MARKER [facility] RBC Urine <1 <=2 /HPF 06/17/2024 1:48 PM LAST MARKER [facility] WBC Urine <1 <=5 /HPF 06/17/2024 1:48 PM LAST MARKER [facility] Squamous Epithelials Urine 3(H) <=1 /HPF 06/17/2024 1:48 PM LAST MARKER [facility] Urine URINE SPECIMEN OBTAINED BY CLEAN CATCH PROCEDURE / Unknown Non-blood Collection / Unknown 06/17/2024 1:11 PM LAST MARKER 06/17/2024 1:38 PM LAST MARKER Narrative [facility] - 06/17/2024 1:48 PM LAST MARKER Urine Culture not indicated Rl Elias MD LAB - URINE ORDER SYD Final Result [facility] [place] Core Lab [address] [facility][1], Room [address] [place] [phone] * Prepare red blood cells (unit) (06/17/2024 9:12 AM LAST MARKER) Pathologist [facility] Blood Component Type Red Blood Cells UU BLOOD BANK Product Code [id number] UU BLOO D BANK Unit Status Transfused UU BLOO D BANK Unit Number [id number] UU B LOOD BANK CROSSMATCH COMPATIBLE UU BLOOD BANK CODING SYSTEM [id number] UU BLO OD BANK ISSUE DATE AND TIME [id number] UU BLOOD BANK UNIT ABO/RH A+ UU BLOOD BANK UNIT TYPE ISBT 6200 UU BL OOD BANK 06/17/2024 9:12 AM LAST MARKER Drake Nina MD BLOOD BANK PRODUCT ORDERABLES Final Result UU BLOOD BANK [address] [place] [address] * (ABNORMAL) Transferrin (06/17/2024 6:16 AM LAST MARKER) Transferrin 100.0(L) 200.0 - 360.0 mg/dL 06/17/2024 9:36 AM LAST MARKER [facility] Blood VENOUS LINE / Unknown IVAD (Port) / Unknown 06/17/2024 6:16 AM LAST MARKER 06/17/2024 6:27 AM LAST MARKER Drake Nina MD LAB - BLOOD ORDERABLES Final Result Performing Organization Address City/[facility]/ZIP Co de Phone Number U LABORATORY [facility] [place] Core Lab [address] [facility][1], [address] * Iron and iron binding capacity (06/17/2024 6:16 AM LAST MARKER) [facility] Iron 123 37 - 145 ug/dL 06/17/2024 10:02 AM LAST MARKER [facility] Iron Binding Capacity 06/17/2024 10:02 AM LAST MARKER [facility] Comment:Unable to calculate: UIBC or Iron value is outside detectable level. Iron Sat Index 06/17/2024 10:02 AM LAST MARKER [facility] Comment:Unable to calculate: UIBC or Iron value is outside detectable level. Blood VENOUS LINE / Unknown IVAD (Port) / Unknown 06/17/2024 6:16 AM LAST MARKER 06/17/2024 6:27 AM LAST MARKER Drake Nina MD LAB - BLOOD ORDERABLES Final Result Performing Organization Address City/[facility] Co de Phone Number U LABORATORY [facility] [place] Core Lab [address] [facility][1], Room [address] * (ABNORMAL) CBC with platelets (06/17/2024 6:16 AM LAST MARKER) [facility] WBC Count 14.6(H) 4.0 - 11.0 10e3/uL 06/17/2024 6:38 AM LAST MARKER [facility] RBC Count 1.97(L) 3.80 - 5.20 10e6/uL 06/17/2024 6:38 AM LAST MARKER [facility] Hemoglobin 6.3(LL) 11.7 - 15.7 g/dL 06/17/2024 6:38 AM LAST MARKER [facility] Hematocrit 17.9(L) 35.0 - 47.0 % 06/17/2024 6:38 AM LAST MARKER [facility] MCV 91 78 - 100 fL 06/17/2024 6:38 AM LAST MARKER [facility] MCH 32.0 26.5 - 33.0 pg 06/17/2024 6:38 AM LAST MARKER [facility] MCHC 35.2 31.5 - 36.5 g/dL 06/17/2024 6:38 AM LAST MARKER [facility] RDW 20.1(H) 10.0 - 15.0 % 06/17/2024 6:38 AM LAST MARKER [facility] Platelet Count 468(H) 150 - 450 10e3/uL 06/17/2024 6:38 AM LAST MARKER [facility] Blood VENOUS LINE / Unknown IVAD (Port) / Unknown 06/17/2024 6:16 AM LAST MARKER 06/17/2024 6:27 AM LAST MARKER Laquita Kelley MD LAB - BLOOD ORDERABLES Final Re sult [facility] [place] [facility] [address] [facility][1], Room [address] [place] [id number] * (ABNORMAL) Basic metabolic panel (06/17/2024 6:16 AM LAST MARKER) Sodium 134(L) 135 - 145 mmol/L 06/17/2024 6:55 AM LAST MARKER [facility] Potassium 4.6 3.4 - 5.3 mmol/L 06/17/2024 6:55 AM LAST MARKER [facility] Chloride 105 98 - 107 mmol/L 06/17/2024 6:55 AM LAST MARKER [facility] Carbon Dioxide (CO2) 20(L) 22 - 29 mmol/L 06/17/2024 6:55 AM LAST MARKER [facility] Anion Gap 9 7 - 15 mmol/L 06/17/2024 6:55 AM LAST MARKER [facility] Urea Nitrogen 16.1 6.0 - 20.0 mg/dL 06/17/2024 6:55 AM LAST MARKER [facility] Creatinine 0.90 0.51 - 0.95 mg/dL 06/17/2024 6:55 AM LAST MARKER [facility] GFR Estimate 88 >60 mL/min/1.7 3m2 06/17/2024 6:55 AM LAST MARKER [facility] Comment:eGFR calculated usin g 2020 CKD-EPI equation. Calcium 8.4(L) 8.8 - 10.4 mg/dL 06/17/2024 6:55 AM LAST MARKER [facility] Glucose 95 70 - 99 mg/dL 06/17/2024 6:55 AM LAST MARKER [facility] Blood VENOUS LINE / Unknown IVAD (Port) / Unknown 06/17/2024 6:16 AM LAST MARKER 06/17/2024 6:27 AM LAST MARKER Laquita Kelley MD LAB - BLOOD ORDERABLES Final Re sult [facility] [place] [facility] [address] [facility][1], Room [address] * Troponin T, High Sensitivity (06/16/2024 9:33 PM LAST MARKER) [facility] Troponin T, High Sensitivity 8 <=14 ng/L 06/16/2024 10:13 PM LAST MARKER [facility] Comment: Either a High Sensitivity [...] IVAD (Port) / Unknown 06/16/2024 9:33 PM LAST MARKER 06/16/2024 9:44 PM LAST MARKER us Abimael Schofield MD LAB - BLOOD ORDERABLE S Final Result [facility] [place] [facility] [address] [facility][1], Room [address] [place], [place] [id number] * Chest XR, PA & LAT (06/16/2024 6:09 PM LAST MARKER) Anatomical Region Laterality Modality Chest Digital Radiogra phy 06/16/2024 6:09 PM LAST MARKER Impressions 06/16/2024 6:13 PM LAST MARKER IMPRESSION: Left chest port catheter in stable position. Stable position of right central venous catheter. No airspace opacity, pleural effusion or pneumothorax. Narrative 06/16/2024 6:13 PM LAST MARKER EXAM: XR CHEST 2 VIEWS LOCATION: [facility] DATE: 06/16/2024 INDICATION: chest pain COMPARISON: 06/12/2024 Procedure Note Richar Haines MD - 06/16/2024 EXAM: XR CHEST 2 VIEWS LOCATION: [facility] DATE: 06/16/2024 INDICATION: chest pain COMPARISON: 06/12/2024 IMPRESSION: Left chest port catheter in stable position. Stable positionof right central venous catheter. No airspace opacity, pleural effusion orpneumothorax. us Varghesegiulia Schofield MD IMG DIAGNOSTIC IMAGIN G ORDERABLES Final Result * RBC and Platelet Morphology (06/16/2024 5:37 PM LAST MARKER) RBC Morphology Confirmed RBC Indices 06/16/2024 7:40 PM LAST MARKER [facility] Platelet Assessment Automated Count Confirmed. Platelet morphology is normal. Automated Count Confirmed. Platelet morphology is normal. 06/16/2024 7:40 PM LAST MARKER [facility] Blood BLOOD SPECIMEN / Unknown Venipuncture / Unknown 06/16/2024 5:37 PM LAST MARKER 06/16/2024 5:46 PM LAST MARKER us Varghesegiulia Schofield MD LAB - BLOOD ORDERABLE S Final Result [facility] [place] [facility] [address] [facility], [address] [place] [address], [facility] * Adult Type and Screen (06/16/2024 5:37 PM LAST MARKER) [facility] ABO/RH(D) A POS 06/16/2024 5:08 PM LAST MARKER [facility] Antibody Screen Negative Negative 06/16/2024 5:08 PM LAST MARKER U B[facility] B[facility] Comment:Current antibody scr een is negative. Patient has a history of antibody(ies). A delay in compatible red blood cells may occur. SPECIMEN EXPIRATION DATE [id number] 06/16/2024 5:08 PM LAST MARKER U BLOOD BANK Blood BLOOD SPECIMEN / Unknown Venipuncture / Unknown 06/16/2024 5:37 PM LAST MARKER 06/16/2024 5:46 PM LAST MARKER us Varghese Cipriano Schofield MD LAB - BLOOD BANK TEST ORDER Final Result BLOOD BANK [address] [place] [address] * (ABNORMAL) CBC with platelets and differential (06/16/2024 5:37 PM LAST MARKER) [facility] WBC Count 21.0(H) 4.0 - 11.0 10e3/uL 06/16/2024 7:41 PM LAST MARKER [facility] RBC Count 2.34(L) 3.80 - 5.20 10e6/uL 06/16/2024 7:41 PM LAST MARKER [facility] Hemoglobin 7.4(L) 11.7 - 15.7 g/dL 06/16/2024 7:41 PM LAST MARKER [facility] Hematocrit 21.7(L) 35.0 - 47.0 % 06/16/2024 7:41 PM LAST MARKER [facility] MCV 93 78 - 100 fL 06/16/2024 7:41 PM LAST MARKER [facility] MCH 31.6 26.5 - 33.0 pg 06/16/2024 7:41 PM LAST MARKER [facility] MCHC 34.1 31.5 - 36.5 g/dL 06/16/2024 7:41 PM LAST MARKER [facility] RDW 19.3(H) 10.0 - 15.0 % 06/16/2024 7:41 PM LAST MARKER [facility] Platelet Count 551(H) 150 - 450 10e3/uL 06/16/2024 7:41 PM LAST MARKER [facility] % Neutrophils 69 % 06/16/2024 7:41 PM LAST MARKER [facility] % Lymphocytes 20 % 06/16/2024 7:41 PM LAST MARKER [facility] % Monocytes 9 % 06/16/2024 7:41 PM LAST MARKER [facility] % Eosinophils 0 % 06/16/2024 7:41 PM LAST MARKER [facility] % Basophils 1 % 06/16/2024 7:41 PM LAST MARKER [facility] % Immature Granulocytes 1 % 06/16/2024 7:41 PM LAST MARKER [facility] NRBCs per 100 WBC 1(H) <1 /100 025 7:41 PM LAST MARKER [facility] Absolute Neutrophils 14.5(H) 1.6 - 8.3 10e3/uL 06/16/2024 7:41 PM LAST MARKER [facility] Absolute Lymphocytes 4.2 0.8 - 5.3 10e3/uL 06/16/2024 7:41 PM LAST MARKER [facility] Absolute Monocytes 2.0(H) 0.0 - 1.3 10e3/uL 06/16/2024 7:41 PM LAST MARKER [facility] Absolute Eosinophils 0.0 0.0 - 0.7 10e3/uL 06/16/2024 7:41 PM LAST MARKER [facility] Absolute Basophils 0.2 0.0 - 0.2 10e3/uL 06/16/2024 7:41 PM LAST MARKER [facility] Absolute Immature Granulocytes 0.1 <=0.4 10e3/uL 06/16/2024 7:41 PM LAST MARKER [facility] Absolute NRBCs 0.3 10e3/uL 06/16/2024 7:41 PM LAST MARKER [facility] Blood BLOOD SPECIMEN / Unknown Venipuncture / Unknown 06/16/2024 5:37 PM LAST MARKER 06/16/2024 5:46 PM LAST MARKER us Varghese Cipriano Schofield MD LAB - BLOOD ORDERABLE S Final Result [facility] [place] [facility] [address] [facility], [address] [place] [address], [facility] * (ABNORMAL) Prolactin (06/16/2024 5:37 PM LAST MARKER) Prolactin 55(H) 5 - 23 ng/mL 06/16/2024 6:24 PM LAST MARKER [facility] Blood BLOOD SPECIMEN / Unknown Venipuncture / Unknown 06/16/2024 5:37 PM LAST MARKER 06/16/2024 5:46 PM LAST MARKER us Abimael Schofield MD LAB - BLOOD ORDERABLE S Final Result [facility] [place] [facility] [address] [facility][1], Room [address] * Blood Culture Peripheral Blood (06/16/2024 5:37 PM LAST MARKER) Culture No Growth 06/21/2024 6:47 PM LAST MARKER [facility] Blood BLOOD SPECIMEN / Unknown Venipuncture / Unknown 06/16/2024 5:37 PM LAST MARKER 06/16/2024 5:47 PM LAST MARKER us Varghesegiulia Schofield MD LAB - MICRO GENERAL O RDERABLES Final Result [facility] Inf. Diseases Diag. Lab [address] [facility], [address] * Troponin T, High Sensitivity (06/16/2024 5:37 PM LAST MARKER) Troponin T, High Sensitivity 6 <=14 ng/L 06/16/2024 6:24 PM LAST MARKER [facility] Comment: Either a High Sensitivity [...] Unknown Venipuncture / Unknown 06/16/2024 5:37 PM LAST MARKER 06/16/2024 5:46 PM LAST MARKER us Varghesegiulia Schofield MD LAB - BLOOD ORDERABLE S Final Result [facility] [place] [facility] [address] [facility], [address] [place] [address] * (ABNORMAL) Comprehensive metabolic panel (06/16/2024 5:37 PM LAST MARKER) Sodium 135 135 - 145 mmol/L 06/16/2024 6:24 PM LAST MARKER [facility] Potassium 4.2 3.4 - 5.3 mmol/L 06/16/2024 6:24 PM LAST MARKER [facility] Carbon Dioxide (CO2) 18(L) 22 - 29 mmol/L 06/16/2024 6:24 PM LAST MARKER [facility] Anion Gap 14 7 - 15 mmol/L 06/16/2024 6:24 PM LAST MARKER [facility] Urea Nitrogen 17.3 6.0 - 20.0 mg/dL 06/16/2024 6:24 PM LAST MARKER [facility] Creatinine 0.92 0.51 - 0.95 mg/dL 06/16/2024 6:24 PM LAST MARKER [facility] GFR Estimate 85 >60 mL/min/1.7 3m2 06/16/2024 6:24 PM LAST MARKER [facility] Comment:eGFR calculated us2020 CKD-EPI equation. Calcium 9.5 8.8 - 10.4 mg/dL 06/16/2024 6:24 PM LAST MARKER [facility] Chloride 103 98 - 107 mmol/L 06/16/2024 6:24 PM LAST MARKER [facility] Glucose 122(H) 70 - 99 mg/dL 06/16/2024 6:24 PM LAST MARKER [facility] Alkaline Phosphatase 105 40 - 150 U/L 06/16/2024 6:24 PM LAST MARKER [facility] AST 49(H) 0 - 45 U/L 06/16/2024 6:24 PM LAST MARKER [facility] ALT 32 0 - 50 U/L 06/16/2024 6:24 PM LAST MARKER [facility] Protein Total 8.6(H) 6.4 - 8.3 g/dL 06/16/2024 6:24 PM LAST MARKER [facility] Albumin 4.6 3.5 - 5.2 g/dL 06/16/2024 6:24 PM LAST MARKER [facility] Bilirubin Total 2.0(H) <=1.2 mg/dL 06/16/2024 6:24 PM LAST MARKER [facility] Blood BLOOD SPECIMEN / Unknown Venipuncture / Unknown 06/16/2024 5:37 PM LAST MARKER 06/16/2024 5:46 PM LAST MARKER us Varghesegiulia Schofield MD LAB - BLOOD ORDERABLE S Final Result [facility] [place] [facility] [address] [facility][1], [address] [id number] * EKG 12 lead (06/16/2024 4:55 PM LAST MARKER) Systolic Blood Pressure mmHg RADIOLOGY RESULTS Diastolic Blood Pressure mmHg RADIOLOGY RESULTS Ventricular Rate 122 BPM RAD IOLOGY RESULTS Atrial Rate 122 BPM RADIOLOG Y RESULTS CA Interval 128 ms RADIOLOG Y RESULTS QRS Duration 74 ms RADIOLO GY RESULTS QT 314 ms RADIOLOGY RESULTS QTc 447 ms RADIOLOGY RESULTS P [place] 63 degrees RADIOLOGY RESULTS R AXIS 83 degrees RADIOLOGY RESULTS T [place] 29 degrees RADIOLOGY RESULTS Interpretation ECG Sinus tachycardia Otherwise normal ECG Unconfirmed report - interpretation of this ECG is computer generated - see medical record for final interpretation Confirmed by - EMERGENCY ROOM, PHYSICIAN ([id number]), editor news KARLA WILLIAMSON ([id number]) on 06/17/2024 6:56:59 AM RADIOLOGY RESULTS 06/16/2024 4:55 PM LAST MARKER 06/17/2024 6:56 AM LAST MARKER us Abimael Schofield MD ECG ORDERABLES Edite [...] days, Indications: pneumoniaIndications:pneumonia $Given 06/18/2024 8:40 PM LAST MARKER 200 mg $Given 06/18/2024 12:05 PM LAST MARKER 200 mg $Given 06/17/2024 9:25 PM LAST MARKER 200 mg diclofenac (VOLTAREN) 1 % topical gel 2 g 2 g, Topical, 4 TIMES DAILY, First dose on Wed06/17/24 at 1400, Apply to areas of pain. Use supplied dosing card to measure dose. diphenhydrAMINE (BENADRYL) capsule 25 mg 25 mg, Oral, EVERY 6 HOURS PRN, itching, Starting on Wed06/16/24 at 1956 $Given 06/19/2024 12:46 PM LAST MARKER 25 mg diphenhydrAMINE (BENADRYL) injection 25 mg 25 mg, Intravenous, EVERY 6 HOURS PRN, itching, Starting on Wed06/16/24 at 1956 $Given 06/20/2024 8:36 AM LAST MARKER 25 mg $Given 06/20/2024 2:08 AM LAST MARKER 25 mg $Given 06/19/2024 8:21 PM LAST MARKER 25 mg enoxaparin ANTICOAGULANT (LOVENOX) injection 40 mg 40 mg, Subcutaneous, EVERY 24 HOURS, First dose on Wed06/16/24 at 2100, Contact provider if platelet count drops by 50% or more after enoxaparin initiation OR if platelet count falls below 50 x 10e3/uL $Given 06/19/2024 8:29 PM LAST MARKER 40 mg $Given 06/18/2024 8:01 PM LAST MARKER 40 mg $Given 06/17/2024 9:32 PM LAST MARKER 40 mg FLUoxetine (PROzac) capsule 10 mg 10 mg, Oral, DAILY, First dose on Wed06/17/24 at 0800 $Given 06/20/2024 7:54 AM LAST MARKER 10 mg $Given 06/19/2024 8:54 AM LAST MARKER 10 mg $Given 06/18/2024 9:54 AM LAST MARKER 10 mg folic acid (FOLVITE) tablet 1 mg 1 mg, Oral, DAILY, First dose on Wed06/17/24 at 0800 $Given 06/20/2024 7:51 AM LAST MARKER 1 mg $Given 06/19/2024 8:54 AM LAST MARKER 1 mg $Given 06/18/2024 8:09 AM LAST MARKER 1 mg heparin lock flush 10 unit/mL [...] each port lumen $Given 06/20/2024 10:55 AM LAST MARKER 5 mLs hydromorphone (DILAUDID) injection 2 mg 2 mg, Intravenous, EVERY 1 HOUR PRN, moderate pain, Starting on Wed06/16/24 at 1708, For 3 doses $Given 06/16/2024 8:20 PM LAST MARKER 2 mg $Given 06/16/2024 5:42 PM LAST MARKER 2 mg hydromorphone (DILAUDID) injection 2 mg 2 mg, Intravenous, EVERY 3 HOURS, First dose on Wed06/16/24 at 2100, May use concomitant with non-opioid analgesics. $Given 06/16/2024 9:59 PM LAST MARKER 2 mg hydromorphone (DILAUDID) injection 2 mg 2 mg, Intravenous, EVERY 2 HOURS, First dose (after last modification) on 06/17/24 at 0000, May use concomitant with non-opioid analgesics. $Given 06/20/2024 9:53 AM LAST MARKER 2 mg $Given 06/20/2024 7:49 AM LAST MARKER 2 mg $Given 06/20/2024 5:51 AM LAST MARKER 2 mg hydroxyurea (HYDREA) capsule 1,000 mg 1,000 mg, Oral, 2 TIMES DAILY, First dose on Wed06/16/24 at 2100, Indications: Sickle cell anemia, Do not crush May require hepatic and/or renal dose or frequency adjustments. See reference link for guidelines.Indications:Sickle cell anemia $Given 06/20/2024 7:51 AM LAST MARKER 1,000 mg $Given 06/19/2024 8:13 PM LAST MARKER 1,000 mg $Given 06/19/2024 8:55 AM LAST MARKER 1,000 mg lactated ringers infusion at 75 mL/hr, Intravenous, CONTINUOUS, Starting on Wed06/18/24 at 0845, Until Wed06/20/24 at 0815 Rate/Dose Verify 06/20/2024 8:00 AM LAST MARKER 75 mL/hr $New Bag 06/19/2024 10:38 PM LAST MARKER 75 mL/hr Rate/Dose Verify 06/19/2024 8:29 PM LAST MARKER 75 mL/h r Lidocaine (LIDOCARE) 4 % [...] 06/16/24 at 1958 $Given 06/20/2024 2:08 AM LAST MARKER 4 mg $Given 06/19/2024 8:15 PM LAST MARKER 4 mg $Given 06/19/2024 12:46 PM LAST MARKER 4 mg polyethylene glycol (MIRALAX) Packet 17 [...] each port lumen. $Given 06/20/2024 10:54 AM LAST MARKER 10 mLs sodium chloride (PF) 0.9% PF flush 3 mL 3 mL, Intracatheter, EVERY 8 HOURS, First dose on Wed06/16/24 at 1710, to lock peripheral IV dormant line $Given 06/20/2024 12:24 AM LAST MARKER 3 mLs $Given 06/18/2024 6:22 PM LAST MARKER 3 mLs $Given 06/17/2024 7:34 AM LAST MARKER 3 mLs sodium chloride (PF) 0.9% PF flush 3 mL 3 mL, Intracatheter, EVERY 1 MIN PRN, line flush, other, to ensure patency or to lock dormant line, Starting on Wed06/16/24 at 1706 sodium chloride (PF) 0.9% PF flush 3 mL 3 mL, Intracatheter, EVERY 8 HOURS, First dose on Wed06/16/24 at 2100, to lock peripheral IV dormant line $Given 06/20/2024 4:41 AM LAST MARKER 3 mLs $Given 06/19/2024 12:56 PM LAST MARKER 3 mLs $Given 06/18/2024 12:07 PM LAST MARKER 3 mLs sodium chloride (PF) 0.9% PF flush 3 mL 3 mL, Intracatheter, EVERY 1 MIN PRN, line flush, other, to ensure patency or to lock dormant line, Starting on Wed06/16/24 at 2058 $Given 06/20/2024 5:5 2 AM LAST MARKER 3 mLs $Given 06/20/2024 2:59 AM LAST MARKER 3 mLs $Given 06/20/2024 2:07 AM LAST MARKER 3 mLs sodium chloride 0.9 % infusion at 75 mL/hr, Intravenous, CONTINUOUS, Starting on Wed06/16/24 at 1710, Until Wed06/18/24 at 0843 Rate/Dose Verify 06/18/2024 8:07 AM LAST MARKER 75 mL/hr $New Bag 06/17/2024 9:42 PM LAST MARKER 75 mL/hr $New Bag 06/17/2024 4:05 PM LAST MARKER 75 mL/hr sodium chloride 0.9% BOLUS 500 mL Intravenous, 500 mL, ONCE, at 500 mL/hr, Administer over 1 Hours, On Wed06/16/24 at 1710, For 1 dose $New Bag 06/16/2024 5:51 PM LAST MARKER 500 mLs 500 mL/hr documented in this encounter Active and Recently Administered Medications Times are shown in LAST MARKER. Scheduled Medication Order 06/18/2024 06/19/2024 06/20/2024 cefpodoxime [...] 10e3/uL 2000 ($Given - Provider: Amelia Gannon, SOFIA) 2028 ($Given - Provider: Sarai Shrestha RN) [...] Cervantes RN) 0751 ($Given - Provider: Divya Reyes [...] Tejal Curry RN)1009 ($Given - Provider: Tejal Curry, RN)1207 ($Given - Provider: Tejal Curry RN)1412 [...] Gannon, RN)1246 (See Alternative - Provider: Kiki Caal RN)202 ($Given - Provider: Sarai Shrestha, SOFIA) 0208 ($Given - Provider: Rene Mroocho, SOFIA)0836 ($Given - Provider: Divya Reyes RN) [...] - Provider: Rene Morocho RN - Comment: publicity writer used scheudled dose instead of PRN [...] PRN, itching, Starting on Wed06/16/24 at 1955 Group 2: senna-docusate (SENOKOT-S/PERICOLACE) 8.6-50 MG per [...] stools. documented in this encounter Care Teams Morning Nanny Relationship Specialty Start Date End Date No Ref-Primary, Physician PCP - General 03/15/24 06/17/24 Veronica Joseph MD [address] [place] [address] PCP - General Family Medicine 06/18/24 Mor Ramsey Medical Student 04/03/24 Case Samuel MD [address] [place] [address] [address], [address] [place] [address] Assigned Pediatric Specialist Provider 05/18/24 Juhi Benson, RN Specialty Sports Book Writer Hematology & Oncology 05/29/24 documented as of this encounter
--- OUTSIDE RECORDS SUMMARY | 2024-07-03 21:35 | XMS_ITS ---
Author Organization [facility] Address [address] [place] [address] Care Team Providers Care Procedures Analyst Name Role Phone Roxy Mor Unavailable Unavailable Case Samuel MD Unavailable [phone] Juhi Benson RN Unavailable Unavailable Veronica Joseph MD Primary Care Provider [phone] Transitional Care Management Status:Closed (Closed) Start date:06/16/2024 Enrollment date:06/16/2024 End date:06/30/2024 Close reason:Goals met Continued Care and Services Coordination
--- OUTSIDE RECORDS SUMMARY | 2024-07-03 21:35 | XMS_ITS | Encounter Summary ---
Author Organization [facility] Address [address] [place] [address] Care Team Providers Care Lead Mechanical Engineer Name Role Phone No Ref-Primary, Physician Primary Care Provider Mor Ramsey Unavailable Unavailable Case aSmuel MD Unavailable [phone] Juhi Benson RN Unavailable Unavailable Reason for Visit * Reason Onset Date Comments Refill Request 06/15/2024 Encounter Details Date Type Department Care Team (Late st Contact Info) Description 06/15/[address] [place] [address] Case Samuel MD [address] [place] [address] [address], [address] [place], [place] [id number] Refill Request Social History Tobacco Use Types [...] on file Legal Sex 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 Case Samuel on 06/07/24 VETERINARIAN HELPER Reviewed: no access Send to provider: Dr. Samuel and SOFIA ReynagaCC. R WORKER documented in this encounter Plan of Treatment Upcoming Encounters Date Type Department Care Team (Late st Contact Info) Description 07/04/2024 9:00 AM CDT Lab [facility] [address] [phone] Case Samuel MD [address] [place] [address], [address] [place], [place] [phone] 07/06/2024 8:00 AM CDT Appointment [facility] Advanced Treatment [address] [phone] Case Samuel MD [address] [place] [address], [address] [place], [place] [address] 07/10/2024 11:30 AM CDT Oncology Visit [facility] [address] [phone] Case Samuel MD [address] [place], [place] [address], ROOM [address] [id number] documented as of this encounter Goals Goal Patient Goal Type Associated Problems Recent Progress Patient-Stated? Author Pain Management General On track( 025 12:40 PM FLOOR WORKER) Yes Juhi Benson, SOFIA Note: Goal [...] crisis documented in this encounter Care Teams Lead Mechanical Engineer Relationship Specialty Start Date End Date No Ref-Primary, Physician PCP - General 03/15/24 06/17/24 Mor Ramsey Medical Student 04/03/24 Case Samuel MD [address] [place] [address], [address] [place] [address] Assigned Pediatric Specialist Provider 05/18/24 Juhi Benson, RN Specialty Deputy Juvenile Officer Hematology & Oncology 05/29/24 documented as of this encounter
--- OUTSIDE RECORDS SUMMARY | 2024-07-03 21:35 | XMS_ITS | Clinical Summary ---
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: Lizzie Genotype: SS Acute Pain [...] CDT - 07/02/2024 9:37 PM CDT Emergency [facility] Emergency Department [address] [place] [phone] Vasiliy Lutz DO Sickle cell pain crisis (H) Discharge Disposition: Home or Self Care 07/02/2024 Travel 07/01/2024 6:18 PM HALL SUPERVISOR - 07/01/2024 9:43 PM HALL SUPERVISOR Emergency [facility] Emergency Department [address] [place] [phone] Andres Tejada MD Sickle cell pain crisis (H) Discharge Disposition: Home or Self Care 07/01/2024 Travel 06/29/2024 [facility] [address] [phone] Case Samuel MD Refill Request 06/26/2024 1:51 PM HALL SUPERVISOR - 06/29/2024 11:11 AM HALL SUPERVISOR Hospital Encounter [facility] Emergency Department [address] [place] [address] Jayden Adhikari MD Pal, Suman, MD Diehl, Matthew, MD Acute pulmonary embolism without acute cor pulmonale, unspecified pulmonary embolism type (H); Sickle cell pain crisis (H) Discharge Disposition: Home or Self Care 06/26/2024 Travel 06/25/2024 9:50 PM HALL SUPERVISOR - 06/26/2024 1:11 AM HALL SUPERVISOR Emergency [facility] Emergency Department [address] [place] [address] Polly Naylor MD Tschohl, Melissa Ann, MD Sickle cell disease with crisis (H); Chest pain, unspecified type Discharge Disposition: Home or Self Care 06/25/2024 Travel 06/24/2024 9:28 AM HALL SUPERVISOR - 06/24/2024 1:05 PM HALL SUPERVISOR Emergency [facility] Emergency Department [address] [place] [address] Richar Mahajan MD Sickle cell disease with crisis (H) Discharge Disposition: Home or Self Care 06/24/2024 Travel 06/23/2024 6:03 PM HALL SUPERVISOR - 06/23/2024 9:47 PM HALL SUPERVISOR Emergency [facility] Emergency Department [address] [place] [address] Dayna Crane MD Sickle cell disease with crisis (H) Discharge Disposition: Home or Self Care 06/23/2024 Travel 06/22/2024 5:23 PM HALL SUPERVISOR - 06/22/2024 10:02 PM HALL SUPERVISOR Emergency [facility] Emergency Department [address] [place] [address] Lynne Varner MD Sickle cell anemia with crisis (H) Discharge Disposition: Home or Self Care 06/22/2024 Travel 06/16/2024 4:46 PM HALL SUPERVISOR - 06/20/2024 11:00 AM [facility] [[email or web address]] Hospital Encounter [facility] 7C Med Surg [address] [place] [address] Abimael Schofield MD Pal, Suman, MD Duffy, Briar, MD Sickle cell pain crisis (H) Discharge Disposition: Home or Self Care 06/16/2024 Travel 06/15/[address] [phone] Case Samuel MD Refill Request 06/12/2024 6:38 PM HALL SUPERVISOR - 06/15/2024 10:48 AM HALL SUPERVISOR Hospital Encounter [facility] Emergency Department [address] [place] [phone] Abdelrahman Goddard MD Beacom, Evan, DO Duffy, Briar, MD 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); Acute chest pain; Sickle cell pain crisis (H); Pneumonia of right lower lobe due to infectious organism Discharge Disposition: Home or Self Care 06/12/2024 Travel 06/11/2024 9:02 PM HALL SUPERVISOR - 06/12/2024 1:57 AM HALL SUPERVISOR Emergency [facility] Emergency Room [address] [place] [phone] Iliana Weber MD Sickle cell pain crisis (H) Discharge Disposition: Home or Self Care 06/11/2024 Travel 06/09/2024 11:30 AM HALL SUPERVISOR Infusion Therapy Visit [facility] [address] [phone] Case Samuel MD Sickle cell pain crisis (H) (Primary Dx) 06/09/2024 Travel 06/07/2024 1:30 PM HALL SUPERVISOR Infusion Therapy Visit [facility] [address] [phone] Case Samuel MD Fever (Primary Dx); Sickle cell pain crisis (H) 06/07/2024 10:00 AM HALL SUPERVISOR - 06/07/2024 10:45 AM HALL SUPERVISOR Emergency [facility] Emergency Room [address] [place] [phone] Bernabe Farley MD Chest pain, unspecified type; Fever, unspecified fever cause; Left against medical advice Discharge Disposition: Home or Self Care 06/07/2024 Travel 06/06/2024 9:41 AM HALL SUPERVISOR - 06/06/2024 1:29 PM [facility] [[email or web address]] Emergency [facility] Emergency Room [address] [place] [phone] Marilia Summers MD Sickle cell pain crisis (H) Discharge Disposition: Home or Self Care 06/05/2024 11:41 AM HALL SUPERVISOR - 06/05/2024 3:28 PM [facility] [[email or web address]] Emergency [facility] Room [address] [place] [phone] Stiven Madsen MD Palm, Steven J, MD Sickle cell pain crisis (H) Discharge Disposition: Home or Self Care 06/05/2024 Travel 06/05/2024 [facility] [address] [place] [phone] Case Samuel MD Refill Request 06/03/2024 3:22 PM HALL SUPERVISOR - 06/03/2024 5:30 PM [facility] [[email or web address]] Emergency [facility] [address] [place] [phone] Jennifer Bell MD Sickle cell pain crisis (H) Discharge Disposition: Home or Self Care 06/03/2024 Travel 06/01/2024 11:41 PM HALL SUPERVISOR - 06/02/2024 2:35 AM [facility] [[email or web address]] Emergency [facility] [address] [place] [phone] Noel Pinzon MD Sickle cell pain crisis (H) Discharge Disposition: Home or Self Care 06/01/2024 Travel 05/31/2024 9:56 PM HALL SUPERVISOR - 06/01/2024 12:46 AM [facility] [[email or web address]] Emergency [facility] [address] [place] [phone] Carley Riggins MD Sickle cell pain crisis (H) Discharge Disposition: Home or Self Care 05/31/2024 Travel 05/30/2024 8:00 AM HALL SUPERVISOR Infusion Therapy Visit [facility] [address] [phone] Case Samuel MD 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); History of transfusion; Sickle cell pain crisis (H) 05/29/2024 11:30 AM HALL SUPERVISOR Oncology Visit [facility] [address] [phone] Case Samuel MD Severe episode of recurrent major depressive disorder, 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); History of transfusion; Sickle cell pain crisis (H); 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) 05/29/2024 Orders Only [facility] [address] [phone] Juhi Benson RN Sickle cell pain crisis (H) (Primary Dx); 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) 05/29/2024 Travel 05/28/2024 11:56 PM HALL SUPERVISOR - 05/29/2024 3:54 AM HALL SUPERVISOR Emergency [facility] [address] [place] [phone] Lenin Smith MD Sickle cell disease with crisis (H) Discharge Disposition: Home or Self Care 05/28/2024 Travel 05/27/2024 11:58 AM HALL SUPERVISOR - 05/27/2024 6:07 PM HALL SUPERVISOR Emergency [facility] [address] [place] [phone] Blas Mcclellan MD Ohl, Marly Leija, DO Sickle cell disease with crisis (H) Discharge Disposition: Home or Self Care 05/27/2024 Travel 05/25/2024 10:53 AM HALL SUPERVISOR - 05/25/2024 4:00 PM HALL SUPERVISOR Hospital Encounter [facility] Interventional Radiology [address] [place] [phone] Jaswinder Cooper MD 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) Discharge Disposition: Home or Self Care 05/23/2024 9:03 PM HALL SUPERVISOR - 05/23/2024 11:37 PM HALL SUPERVISOR Emergency [facility] [address] [place] [phone] Marilia Summers MD Sickle cell pain crisis (H); Leukocytosis, unspecified type; Left-sided chest wall pain Discharge Disposition: Home or Self Care 05/23/2024 Travel 05/22/2024 3:27 PM HALL SUPERVISOR - 05/22/2024 6:55 PM HALL SUPERVISOR Emergency [facility] [address] [place] [phone] Bernabe Farley MD Sickle cell pain crisis (H) Discharge Disposition: Home or Self Care 05/22/2024 MyC Refill [facility] [address] [place] [phone] Case Samuel MD Refill Request 05/22/2024 Travel 05/22/2024 MyC Medical Advice [facility] Interventional Radiology [address] [place] [phone] Yadi Mahan RN 05/20/2024 7:30 AM HALL SUPERVISOR - 05/20/2024 11:15 AM [facility] [[email or web address]] Emergency [facility] [address] [place] [phone] Stiven Madsen MD Sickle cell pain crisis (H) Discharge Disposition: Home or Self Care 05/20/2024 Travel 05/19/2024 2:10 AM HALL SUPERVISOR - 05/19/2024 6:06 AM [facility] [[email or web address]] Emergency [facility] [address] [place] [phone] Marilia Summers MD Sickle cell disease with crisis (H) Discharge Disposition: Home or Self Care 05/19/2024 Travel 05/16/2024 9:41 PM HALL SUPERVISOR - 05/17/2024 12:53 AM HALL SUPERVISOR Emergency [facility] [address] [place] [phone] Guille Davis DO Sickle cell pain crisis (H) Discharge Disposition: Home or Self Care 05/16/2024 Travel 05/14/2024 10:07 PM HALL SUPERVISOR - 05/15/2024 12:14 AM [facility] [[email or web address]] Emergency [facility] [address] [place] [phone] Marguerite Ponce PA-C Sickle cell pain crisis (H) Discharge Disposition: Home or Self Care 05/14/2024 Travel 05/13/2024 3:56 PM HALL SUPERVISOR - 05/13/2024 7:56 PM [facility] [[email or web address] Emergency [facility] [address] [place] [phone] Shaheen Unger MD Sickle cell pain crisis (H) Discharge Disposition: Home or Self Care 05/13/2024 Travel 05/08/2024 3:10 PM HALL SUPERVISOR - 05/08/2024 7:54 PM HALL SUPERVISOR Emergency [facility] [address] [place] [phone] Polly Alcaraz MD Sickle cell pain crisis (H) Discharge Disposition: Home or Self Care 05/08/2024 Travel 05/08/2024 [facility] [address] [place] [phone] Case Samuel MD Refill Request 05/06/2024 6:34 PM HALL SUPERVISOR - 05/06/2024 10:33 PM [facility] [[email or web address]] Emergency [facility] [address] [place] [phone] Noel Pinzon MD Sickle cell pain crisis (H) Discharge Disposition: Home or Self Care 05/06/2024 Travel 05/05/2024 11:10 AM HALL SUPERVISOR - 05/05/2024 2:25 PM [facility] [[email or web address]] Emergency [facility] [address] [place] [phone] Star Gifford MD Sickle cell pain crisis (H) Discharge Disposition: Home or Self Care 05/05/2024 Travel 05/02/2024 8:23 AM HALL SUPERVISOR - 05/02/2024 8:54 AM HALL SUPERVISOR Emergency [facility] Emergency Department [address] [place] [phone] Andres Tejada MD Discharge Disposition: Left Without Being Seen 05/02/2024 Telephone [facility] [address] [facility] [address] [place] [phone] No Ref-Primary, Physician Call to schedule (Ed follow up) 05/02/2024 Travel 05/01/2024 11:00 AM HALL SUPERVISOR Oncology Visit [facility] [address] [place] [phone] Case Samuel MD History of transfusion (Primary Dx); 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); Gallstones; Avascular necrosis of bone of left hip (H); 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, with sickle cell retinopathy, unspecified laterality, unspecified whether proliferative (H); Sickle cell pain crisis (H) 05/01/2024 Orders Only [facility] [address] [place] [phone] Juhi Benson RN 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) 05/01/2024 Travel 04/28/2024 12:41 AM HALL SUPERVISOR - 04/28/2024 3:59 AM HALL SUPERVISOR Emergency [facility] Room [address] [place] [phone] Sandy Joya MD Sickle cell pain crisis (H) Discharge Disposition: Home or Self Care 04/28/2024 Travel 04/26/2024 11:53 PM HALL SUPERVISOR - 04/27/2024 2:14 AM HALL SUPERVISOR Emergency [facility] Room [address] [place] [phone] Sandy Joya MD Sickle cell pain crisis (H) Discharge Disposition: Home or Self Care 04/26/2024 Travel 04/19/2024 1:48 AM HALL SUPERVISOR - 04/19/2024 4:28 AM HALL SUPERVISOR Emergency [facility] [address] [place] [phone] Juan Rodriguez MD Sickle cell pain crisis (H); Left hip pain; Nondisplaced articular fracture of head of left femur, initial encounter for closed fracture (H) Discharge Disposition: Home or Self Care 04/19/2024 Travel 04/08/2024 9:38 PM HALL SUPERVISOR - 04/10/2024 10:16 AM HALL SUPERVISOR Hospital Encounter [facility] [address] [place] [phone] Iliana Weber MD Huynh, Ryan K, MD Raddawi, Kenan, MD Sickle cell pain crisis (H) Discharge Disposition: Home or Self Care 04/08/2024 Travel 04/05/2024 11:32 PM HALL SUPERVISOR - 04/06/2024 3:04 AM HALL SUPERVISOR Emergency [facility] [address] [place] [phone] Guille Davis DO Sickle cell pain crisis [...] on file Legal Sex Female 8:25 AM HALL SUPERVISOR Gender Identity Not on file Sexual [...] Info) Description 07/04/2024 9:00 AM CDT Lab [facility] [address] [place] [phone] Case Samuel MD [address] [place] [address], [address] [place], [place] [phone] 07/06/2024 8:00 AM CDT Appointment [facility] [address] [place] [phone] Case Samuel MD [address] [place] [address], [address] [place], [place] [phone] 07/10/2024 11:30 AM CDT Oncology Visit [facility] [address] [place] [phone] Case Samuel MD [address] [place] [address], [address] [place], [place] [phone] Health Maintenance Due Date Last Done Comments [...] Management General On track( 025 12:40 PM HALL SUPERVISOR) Yes Juhi Benson RN Note: Goal [...] medication remaining. Medical Devices Implanted Type Area [employer]ilingual [employer] Psychologist Device Identifier Shelf Expiration Date Model / Serial / Lot Bard 9.6 Powerflow Apheresis Iv Port-05/25/2024 Implanted:Qty: 1 on 05/25/2024 by Myron Michel MD Port Right: Chest Wall BARD 08/23/2024 [id number] / / [id number] Description:Right chest Wall Apheresis Port 9.6FR (Power) 6frt Smartport-05/25 Implanted:Qty: 1 on 05/25/2024 by Myron Michel MD Port Left: Chest Wall [employer] 09/23/2026 [id number] / / [id number] Description:6FR SL SmartPort (Power - 300psi max) [...] PLATELETS & DIFFERENTIAL STAT 07/01/2024 8:00 PM HALL SUPERVISOR MANUAL DIFFERENTIAL STAT 07/01/2024 8 :00 PM HALL SUPERVISOR CBC WITH PLATELETS AND DIFFERENTIAL STAT 07/01/2024 8:00 PM HALL SUPERVISOR RETICULOCYTE COUNT STAT 07/01/2024 8: 00 PM HALL SUPERVISOR COMPREHENSIVE METABOLIC PANEL STAT 07/01/2024 8:00 PM HALL SUPERVISOR CBC WITH PLATELETS & DIFFERENTIAL STAT 06/29/2024 6:05 AM HALL SUPERVISOR EXTRA PURPLE TOP TUBE STAT 06/29/2024 6:05 AM HALL SUPERVISOR EXTRA TUBE STAT 06/29/2024 6:05 AM HALL SUPERVISOR CBC WITH PLATELETS AND DIFFERENTIAL STAT 06/29/2024 6:05 AM HALL SUPERVISOR COMPREHENSIVE METABOLIC PANEL STAT 06/29/2024 6:04 AM HALL SUPERVISOR CBC WITH PLATELETS & DIFFERENTIAL STAT 06/28/2024 6:06 AM HALL SUPERVISOR BILIRUBIN DIRECT Add-On 06/28/2024 6:06 AM HALL SUPERVISOR RBC AND PLATELET MORPHOLOGY STAT 06/28/2024 6:06 AM HALL SUPERVISOR CBC WITH PLATELETS AND DIFFERENTIAL STAT 06/28/2024 6:06 AM HALL SUPERVISOR RETICULOCYTE COUNT STAT 06/28/2024 6: 06 AM HALL SUPERVISOR LACTATE DEHYDROGENASE STAT 06/28/2024 6:06 AM HALL SUPERVISOR COMPREHENSIVE METABOLIC PANEL STAT 06/28/2024 6:06 AM HALL SUPERVISOR HEPARIN UNFRACTIONATED ANTI XA LEVEL STAT 06/28/2024 1:57 AM HALL SUPERVISOR HEPARIN UNFRACTIONATED ANTI XA LEVEL STAT 06/27/2024 7:14 PM HALL SUPERVISOR EXTRA GREEN TOP (LITHIUM HEPARIN) TUBE STAT 06/27/2024 5:55 PM HALL SUPERVISOR EXTRA TUBE STAT 06/27/2024 5:55 PM HALL SUPERVISOR ECHO COMPLETE Routine 06/27/2024 2:33 PM HALL SUPERVISOR HEPARIN UNFRACTIONATED ANTI XA LEVEL STAT 06/27/2024 12:39 PM HALL SUPERVISOR US LOWER EXTREMITY VENOUS DUPLEX BILATERAL STAT 06/27/2024 11:21 AM HALL SUPERVISOR INFLUENZA A/B, RSV AND SARS-COV2 PCR STAT 06/27/2024 8:43 AM HALL SUPERVISOR ROUTINE UA WITH MICROSCOPIC REFLEX TO CULTURE STAT 06/27/2024 8:12 AM HALL SUPERVISOR ABO/RH TYPE AND SCREEN Add-On 5:57 AM HALL SUPERVISOR CBC WITH PLATELETS & DIFFERENTIAL Add-On 06/27/2024 5:57 AM HALL SUPERVISOR TYPE AND SCREEN, ADULT Routine 5:57 AM HALL SUPERVISOR RBC AND PLATELET MORPHOLOGY STAT 06/27/2024 5:57 AM HALL SUPERVISOR CBC WITH PLATELETS AND DIFFERENTIAL Add-On 06/27/2024 5:57 AM HALL SUPERVISOR RETICULOCYTE COUNT Add-On 06/27/2024 5: 57 AM HALL SUPERVISOR HEPATIC FUNCTION PANEL Add-On 5:57 AM HALL SUPERVISOR CBC WITH PLATELETS STAT 06/27/2024 5: 57 AM HALL SUPERVISOR BASIC METABOLIC PANEL STAT 06/27/2024 5:57 AM HALL SUPERVISOR HEPARIN UNFRACTIONATED ANTI XA LEVEL STAT 06/27/2024 5:56 AM HALL SUPERVISOR HEPARIN UNFRACTIONATED ANTI XA LEVEL STAT 06/26/2024 10:46 PM HALL SUPERVISOR BLOOD CULTURE STAT 06/26/2024 6:46 PM HALL SUPERVISOR BLOOD CULTURE STAT 06/26/2024 6:46 PM HALL SUPERVISOR ERYTHROCYTE SEDIMENTATION RATE AUTO STAT 06/26/2024 6:46 PM HALL SUPERVISOR EKG 12-LEAD, TRACING ONLY STAT 06/26/2024 5:[address] CHEST PULMONARY EMBOLISM W CONTRAST STAT 06/26/2024 4:15 PM HALL SUPERVISOR XR CHEST 2 VIEWS STAT 06/26/2024 3:13 PM HALL SUPERVISOR ABO/RH TYPE AND SCREEN STAT 2:42 PM HALL SUPERVISOR CBC WITH PLATELETS & DIFFERENTIAL STAT 06/26/2024 2:42 PM HALL SUPERVISOR TYPE AND SCREEN, ADULT STAT 2:42 PM HALL SUPERVISOR PROCALCITONIN STAT 06/26/2024 2:42 PM HALL SUPERVISOR CRP INFLAMMATION Add-On 06/26/2024 2:42 PM HALL SUPERVISOR CBC WITH PLATELETS AND DIFFERENTIAL STAT 06/26/2024 2:42 PM HALL SUPERVISOR TROPONIN T, HIGH SENSITIVITY STAT 06/26/2024 2:42 PM HALL SUPERVISOR D DIMER QUANTITATIVE STAT 06/26/2024 2:42 PM HALL SUPERVISOR HCG QUALITATIVE STAT 06/26/2024 2:42 PM HALL SUPERVISOR BASIC METABOLIC PANEL STAT 06/26/2024 2:42 PM HALL SUPERVISOR XR CHEST 2 VIEWS STAT 06/25/2024 10:35 PM HALL SUPERVISOR EKG 12-LEAD, TRACING ONLY STAT 06/25/2024 10:19 PM HALL SUPERVISOR ROUTINE UA WITH MICROSCOPIC REFLEX TO CULTURE STAT 06/25/2024 10:16 PM HALL SUPERVISOR CBC WITH PLATELETS & DIFFERENTIAL STAT 06/25/2024 10:15 PM HALL SUPERVISOR CBC WITH PLATELETS AND DIFFERENTIAL STAT 06/25/2024 10:15 PM HALL SUPERVISOR TROPONIN T, HIGH SENSITIVITY STAT 06/25/2024 10:15 PM HALL SUPERVISOR BASIC METABOLIC PANEL STAT 06/25/2024 10:15 PM HALL SUPERVISOR ROUTINE UA WITH MICROSCOPIC REFLEX TO CULTURE STAT 06/24/2024 10:15 AM HALL SUPERVISOR CBC WITH PLATELETS & DIFFERENTIAL STAT 06/24/2024 10:11 AM HALL SUPERVISOR CBC WITH PLATELETS AND DIFFERENTIAL STAT 06/24/2024 10:11 AM HALL SUPERVISOR RETICULOCYTE COUNT STAT 06/24/2024 10:11 AM HALL SUPERVISOR HCG QUALITATIVE STAT 06/24/2024 10:11 AM HALL SUPERVISOR MAGNESIUM STAT 06/24/2024 10:11 AM HALL SUPERVISOR COMPREHENSIVE METABOLIC PANEL STAT 06/24/2024 10:11 AM HALL SUPERVISOR INR STAT 06/24/2024 10:11 AM HALL SUPERVISOR PARTIAL THROMBOPLASTIN TIME STAT 06/24/2024 10:11 AM HALL SUPERVISOR CBC WITH PLATELETS & DIFFERENTIAL STAT 06/23/2024 6:22 PM HALL SUPERVISOR DIFFERENTIAL STAT 06/23/2024 6:22 PM HALL SUPERVISOR CBC WITH PLATELETS AND DIFFERENTIAL STAT 06/23/2024 6:22 PM HALL SUPERVISOR HCG QUALITATIVE STAT 06/23/2024 6:22 PM HALL SUPERVISOR COMPREHENSIVE METABOLIC PANEL STAT 06/23/2024 6:22 PM HALL SUPERVISOR CBC WITH PLATELETS & DIFFERENTIAL STAT 06/22/2024 7:10 PM HALL SUPERVISOR CBC WITH PLATELETS AND DIFFERENTIAL STAT 06/22/2024 7:10 PM HALL SUPERVISOR RETICULOCYTE COUNT STAT 06/22/2024 7: 10 PM HALL SUPERVISOR HCG QUALITATIVE STAT 06/22/2024 7:10 PM HALL SUPERVISOR COMPREHENSIVE METABOLIC PANEL STAT 06/22/2024 7:10 PM HALL SUPERVISOR CBC WITH PLATELETS & DIFFERENTIAL STAT 06/20/2024 5:48 AM HALL SUPERVISOR CBC WITH PLATELETS AND DIFFERENTIAL STAT 06/20/2024 5:48 AM HALL SUPERVISOR RETICULOCYTE COUNT Routine 06/20/2024 5: 48 AM HALL SUPERVISOR COMPREHENSIVE METABOLIC PANEL Routine 06/20/2024 5:48 AM HALL SUPERVISOR LACTATE DEHYDROGENASE Routine 06/20/2024 5:48 AM HALL SUPERVISOR CBC WITH PLATELETS & DIFFERENTIAL STAT 06/19/2024 9:30 AM HALL SUPERVISOR RBC AND PLATELET MORPHOLOGY STAT 06/19/2024 9:30 AM HALL SUPERVISOR CBC WITH PLATELETS AND DIFFERENTIAL STAT 06/19/2024 9:30 AM HALL SUPERVISOR RETICULOCYTE COUNT STAT 06/19/2024 9: 30 AM HALL SUPERVISOR COMPREHENSIVE METABOLIC PANEL STAT 06/19/2024 9:30 AM HALL SUPERVISOR LACTATE DEHYDROGENASE STAT 06/19/2024 9:30 AM HALL SUPERVISOR PLATELET COUNT STAT 06/19/2024 12:17 AM HALL SUPERVISOR CREATININE STAT 06/19/2024 12:17 AM HALL SUPERVISOR CBC WITH PLATELETS & DIFFERENTIAL STAT 06/18/2024 8:24 AM HALL SUPERVISOR DIFFERENTIAL STAT 06/18/2024 8:24 AM HALL SUPERVISOR CBC WITH PLATELETS AND DIFFERENTIAL STAT 06/18/2024 8:24 AM HALL SUPERVISOR RETICULOCYTE COUNT STAT 06/18/2024 8: 24 AM HALL SUPERVISOR COMPREHENSIVE METABOLIC PANEL STAT 06/18/2024 8:24 AM HALL SUPERVISOR LACTATE DEHYDROGENASE STAT 06/18/2024 8:24 AM HALL SUPERVISOR ROUTINE UA WITH MICROSCOPIC REFLEX TO CULTURE STAT 06/17/2024 1:11 PM HALL SUPERVISOR TRANSFUSE RED BLOOD CELLS (UNIT) STAT 06/17/2024 10:26 AM HALL SUPERVISOR PREPARE RED BLOOD CELLS (UNIT) STAT 06/17/2024 9:12 AM HALL SUPERVISOR TRANSFERRIN Add-On 06/17/2024 6:16 AM HALL SUPERVISOR IRON AND IRON BINDING CAPACITY Add-On 06/17/2024 6:16 AM HALL SUPERVISOR CBC WITH PLATELETS STAT 06/17/2024 6: 16 AM HALL SUPERVISOR BASIC METABOLIC PANEL STAT 06/17/2024 6:16 AM HALL SUPERVISOR TROPONIN T, HIGH SENSITIVITY STAT 06/16/2024 9:33 PM HALL SUPERVISOR XR CHEST 2 VIEWS STAT 06/16/2024 6:09 PM HALL SUPERVISOR ABO/RH TYPE AND SCREEN STAT 5:37 PM HALL SUPERVISOR CBC WITH PLATELETS & DIFFERENTIAL STAT 06/16/2024 5:37 PM HALL SUPERVISOR BLOOD CULTURE STAT 06/16/2024 5:37 PM HALL SUPERVISOR TYPE AND SCREEN, ADULT STAT 5:37 PM HALL SUPERVISOR RBC AND PLATELET MORPHOLOGY STAT 06/16/2024 5:37 PM HALL SUPERVISOR CBC WITH PLATELETS AND DIFFERENTIAL STAT 06/16/2024 5:37 PM HALL SUPERVISOR PROLACTIN STAT 06/16/2024 5:37 PM HALL SUPERVISOR TROPONIN T, HIGH SENSITIVITY STAT 06/16/2024 5:37 PM HALL SUPERVISOR COMPREHENSIVE METABOLIC PANEL STAT 06/16/2024 5:37 PM HALL SUPERVISOR EKG 12-LEAD, TRACING ONLY STAT 06/16/2024 4:55 PM HALL SUPERVISOR CBC WITH PLATELETS & DIFFERENTIAL STAT 06/15/2024 6:09 AM HALL SUPERVISOR CBC WITH PLATELETS AND DIFFERENTIAL STAT 06/15/2024 6:09 AM HALL SUPERVISOR BASIC METABOLIC PANEL STAT 06/15/2024 6:09 AM HALL SUPERVISOR XR CHEST PORT 1 VIEW STAT 06/14/2024 8:46 AM HALL SUPERVISOR CBC WITH PLATELETS STAT 06/14/2024 7: 08 AM HALL SUPERVISOR BASIC METABOLIC PANEL STAT 06/14/2024 7:08 AM HALL SUPERVISOR CBC WITH PLATELETS STAT 06/13/2024 6: 32 PM HALL SUPERVISOR CBC WITH PLATELETS & DIFFERENTIAL STAT 06/13/2024 6:00 AM HALL SUPERVISOR RBC AND PLATELET MORPHOLOGY STAT 06/13/2024 6:00 AM HALL SUPERVISOR CBC WITH PLATELETS AND DIFFERENTIAL STAT 06/13/2024 6:00 AM HALL SUPERVISOR BASIC METABOLIC PANEL STAT 06/13/2024 5:59 AM HALL SUPERVISOR RESPIRATORY PANEL PCR STAT 06/12/2024 9:34 PM HALL SUPERVISOR BLOOD CULTURE STAT 06/12/2024 8:46 PM HALL SUPERVISOR BLOOD CULTURE STAT 06/12/2024 8:46 PM HALL SUPERVISOR XR CHEST 2 VIEWS STAT 06/12/2024 7:38 PM HALL SUPERVISOR ABO/RH TYPE AND SCREEN Add-On 7:17 PM HALL SUPERVISOR CBC WITH PLATELETS & DIFFERENTIAL STAT 06/12/2024 7:17 PM HALL SUPERVISOR TYPE AND SCREEN, ADULT Routine 7:17 PM HALL SUPERVISOR RBC AND PLATELET MORPHOLOGY STAT 06/12/2024 7:17 PM HALL SUPERVISOR CBC WITH PLATELETS AND DIFFERENTIAL STAT 06/12/2024 7:17 PM HALL SUPERVISOR BLOOD GAS VENOUS STAT 06/12/2024 7:17 PM HALL SUPERVISOR TROPONIN T, HIGH SENSITIVITY STAT 06/12/2024 7:17 PM HALL SUPERVISOR BASIC METABOLIC PANEL STAT 06/12/2024 7:17 PM HALL SUPERVISOR INR STAT 06/12/2024 7:17 PM HALL SUPERVISOR EKG 12-LEAD, TRACING ONLY STAT 06/12/2024 6:37 PM HALL SUPERVISOR ECG 12-LEAD WITH MUSE SJN,SJO,WWH STAT 06/11/2024 9:04 PM HALL SUPERVISOR CBC WITH PLATELETS & DIFFERENTIAL Routine 06/07/2024 1:15 PM HALL SUPERVISOR Sickle cell pain crisis (H) RBC AND PLATELET MORPHOLOGY Routine 06/07/2024 1:15 PM HALL SUPERVISOR Sickle cell pain crisis (H) INFLUENZA A/B, RSV AND SARS-COV2 PCR Routine 06/07/2024 1:15 PM HALL SUPERVISOR Fever CBC WITH PLATELETS AND DIFFERENTIAL Routine 06/07/2024 1:15 PM HALL SUPERVISOR Sickle cell pain crisis (H) BASIC METABOLIC PANEL Routine 06/07/2024 1:15 PM HALL SUPERVISOR Sickle cell pain crisis (H) ECG 12-LEAD WITH MUSE SJN,SJO,WWH STAT 06/05/2024 11:40 AM HALL SUPERVISOR ECG 12-LEAD WITH MUSE SJN,SJO,WWH STAT 06/03/2024 3:24 PM HALL SUPERVISOR CBC WITH PLATELETS & DIFFERENTIAL STAT 05/31/2024 10:21 PM HALL SUPERVISOR RBC AND PLATELET MORPHOLOGY STAT 05/31/2024 10:21 PM HALL SUPERVISOR CBC WITH PLATELETS AND DIFFERENTIAL STAT 05/31/2024 10:21 PM HALL SUPERVISOR BASIC METABOLIC PANEL STAT 05/31/2024 10:21 PM HALL SUPERVISOR RETICULOCYTE COUNT STAT 05/31/2024 10:21 PM HALL SUPERVISOR TRANSFUSE RED BLOOD CELLS (UNIT) Routine 05/30/2024 8:28 AM HALL SUPERVISOR Hb-SS disease without crisis (H) History of transfusion PREPARE RED BLOOD CELLS (UNIT) Routine 05/29/2024 5:12 PM HALL SUPERVISOR ABO/RH TYPE AND SCREEN Routine 11:23 AM HALL SUPERVISOR History of transfusion CBC WITH PLATELETS & DIFFERENTIAL Routine 05/29/2024 11:23 AM HALL SUPERVISOR BILL ONLY- CAPILLARY ELECTROPHORESIS Routine 05/29/2024 11:23 AM HALL SUPERVISOR BILL ONLY- SICKLE SOLUBILITY BILL Routine 05/29/2024 11:23 AM HALL SUPERVISOR URINE CULTURE Routine 05/29/2024 11:23 AM HALL SUPERVISOR TYPE AND SCREEN, ADULT Add-On 11:23 AM HALL SUPERVISOR History of transfusion RBC AND PLATELET MORPHOLOGY Routine 05/29/2024 11:23 AM HALL SUPERVISOR CBC WITH PLATELETS AND DIFFERENTIAL Routine 05/29/2024 11:23 AM HALL SUPERVISOR GENOTYPE RED BLOOD CELL Routine 05/29/2024 11:23 AM HALL SUPERVISOR History of transfusion HEMOGLOBIN EVAL REFLEX TO ELP OR RBC SOLUBILITY Routine 05/29/2024 11:23 AM HALL SUPERVISOR FERRITIN Routine 05/29/2024 11:23 AM HALL SUPERVISOR ROUTINE UA WITH MICROSCOPIC REFLEX TO CULTURE Routine 05/29/2024 11:23 AM HALL SUPERVISOR COMPREHENSIVE METABOLIC PANEL Routine 05/29/2024 11:23 AM HALL SUPERVISOR RETICULOCYTE COUNT Routine 05/29/2024 11:23 AM HALL SUPERVISOR CBC WITH PLATELETS & DIFFERENTIAL STAT 05/29/2024 12:53 AM HALL SUPERVISOR MANUAL DIFFERENTIAL STAT 05/29/2024 12:53 AM HALL SUPERVISOR CBC WITH PLATELETS AND DIFFERENTIAL STAT 05/29/2024 12:53 AM HALL SUPERVISOR RETICULOCYTE COUNT STAT 05/29/2024 12:53 AM HALL SUPERVISOR CBC WITH PLATELETS & DIFFERENTIAL STAT 05/27/2024 3:13 PM HALL SUPERVISOR MANUAL DIFFERENTIAL STAT 05/27/2024 3 :13 PM HALL SUPERVISOR CBC WITH PLATELETS AND DIFFERENTIAL STAT 05/27/2024 3:13 PM HALL SUPERVISOR RETICULOCYTE COUNT STAT 05/27/2024 3: 13 PM HALL SUPERVISOR XR CHEST 2 VIEWS STAT 05/27/2024 2:57 PM HALL SUPERVISOR COMPREHENSIVE METABOLIC PANEL STAT 05/27/2024 2:30 PM HALL SUPERVISOR ECG 12-LEAD WITH MUSE SJN,SJO,WWH STAT 05/27/2024 12:12 PM HALL SUPERVISOR IR PROCEDURE NOTE Routine 05/25/2024 2:5 4 PM HALL SUPERVISOR IR CHEST PORT PLACEMENT > 5 YRS OF AGE Routine: Next available opening 05/25/2024 2:47 PM HALL SUPERVISOR 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) IR CHEST PORT PLACEMENT > 5 YRS OF AGE Priority: 1-2 Weeks 05/25/2024 2:47 PM HALL SUPERVISOR 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) HCG QUALITATIVE URINE Routine 05/25/2024 12:[address] CHEST PULMONARY EMBOLISM W CONTRAST STAT 05/23/2024 9:33 PM HALL SUPERVISOR N TERMINAL PRO BNP OUTPATIENT STAT 05/23/2024 9:02 PM HALL SUPERVISOR TROPONIN T, HIGH SENSITIVITY STAT 05/23/2024 9:02 PM HALL SUPERVISOR RETICULOCYTE COUNT STAT 05/23/2024 9: 02 PM HALL SUPERVISOR CBC WITH PLATELETS STAT 05/23/2024 9: 02 PM HALL SUPERVISOR ECG 12-LEAD WITH MUSE SJN,SJO,WWH STAT 05/23/2024 6:54 PM HALL SUPERVISOR XR CHEST 2 VIEWS STAT 05/22/2024 5:19 PM HALL SUPERVISOR CBC WITH PLATELETS & DIFFERENTIAL STAT 05/22/2024 3:51 PM HALL SUPERVISOR RBC AND PLATELET MORPHOLOGY STAT 05/22/2024 3:51 PM HALL SUPERVISOR CBC WITH PLATELETS AND DIFFERENTIAL STAT 05/22/2024 3:51 PM HALL SUPERVISOR BASIC METABOLIC PANEL STAT 05/22/2024 3:51 PM HALL SUPERVISOR ECG 12-LEAD WITH MUSE SJN,SJO,WWH STAT 05/22/2024 3:14 PM HALL SUPERVISOR XR CHEST 2 VIEWS STAT 05/20/2024 9:30 AM HALL SUPERVISOR CBC WITH PLATELETS & DIFFERENTIAL STAT 05/20/2024 9:09 AM HALL SUPERVISOR RBC AND PLATELET MORPHOLOGY STAT 05/20/2024 9:09 AM HALL SUPERVISOR BASIC METABOLIC PANEL STAT 05/20/2024 9:09 AM HALL SUPERVISOR EXTRA GREEN TOP (LITHIUM HEPARIN) TUBE STAT 05/20/2024 9:09 AM HALL SUPERVISOR EXTRA TUBE STAT 05/20/2024 9:09 AM HALL SUPERVISOR CBC WITH PLATELETS AND DIFFERENTIAL STAT 05/20/2024 9:09 AM HALL SUPERVISOR RETICULOCYTE COUNT STAT 05/20/2024 9: 09 AM HALL SUPERVISOR BASIC METABOLIC PANEL STAT 05/20/2024 8:21 AM HALL SUPERVISOR ECG 12-LEAD WITH MUSE SJN,SJO,WWH STAT 05/20/2024 7:36 AM HALL SUPERVISOR CBC WITH PLATELETS & DIFFERENTIAL STAT 05/19/2024 3:05 AM HALL SUPERVISOR MANUAL DIFFERENTIAL STAT 05/19/2024 3 :05 AM HALL SUPERVISOR CBC WITH PLATELETS AND DIFFERENTIAL STAT 05/19/2024 3:05 AM HALL SUPERVISOR HCG QUALITATIVE STAT 05/19/2024 3:05 AM HALL SUPERVISOR CK TOTAL STAT 05/19/2024 3:05 AM HALL SUPERVISOR HEPATIC FUNCTION PANEL STAT 3:05 AM HALL SUPERVISOR BASIC METABOLIC PANEL STAT 05/19/2024 3:05 AM HALL SUPERVISOR RETICULOCYTE COUNT STAT 05/19/2024 3: 05 AM HALL SUPERVISOR CBC WITH PLATELETS & DIFFERENTIAL STAT 05/16/2024 10:17 PM HALL SUPERVISOR RBC AND PLATELET MORPHOLOGY STAT 05/16/2024 10:17 PM HALL SUPERVISOR CBC WITH PLATELETS AND DIFFERENTIAL STAT 05/16/2024 10:17 PM HALL SUPERVISOR BASIC METABOLIC PANEL STAT 05/16/2024 10:17 PM HALL SUPERVISOR INFLUENZA A/B, RSV AND SARS-COV2 PCR STAT 05/16/2024 10:00 PM HALL SUPERVISOR CBC WITH PLATELETS & DIFFERENTIAL STAT 05/14/2024 10:24 PM HALL SUPERVISOR MANUAL DIFFERENTIAL STAT 05/14/2024 10:24 PM HALL SUPERVISOR CBC WITH PLATELETS AND DIFFERENTIAL STAT 05/14/2024 10:24 PM HALL SUPERVISOR HCG QUALITATIVE STAT 05/14/2024 10:24 PM HALL SUPERVISOR TROPONIN T, HIGH SENSITIVITY STAT 05/14/2024 10:24 PM HALL SUPERVISOR RETICULOCYTE COUNT STAT 05/14/2024 10:24 PM HALL SUPERVISOR HEPATIC FUNCTION PANEL STAT 10:24 PM HALL SUPERVISOR BASIC METABOLIC PANEL STAT 05/14/2024 10:24 PM HALL SUPERVISOR ECG 12-LEAD WITH MUSE SJN,SJO,WWH STAT 05/14/2024 10:12 PM HALL SUPERVISOR EXTRA PURPLE TOP TUBE STAT 05/13/2024 6:17 PM HALL SUPERVISOR EXTRA TUBE STAT 05/13/2024 6:17 PM HALL SUPERVISOR LACTATE DEHYDROGENASE STAT 05/13/2024 6:16 PM HALL SUPERVISOR CBC WITH PLATELETS & DIFFERENTIAL STAT 05/13/2024 4:57 PM HALL SUPERVISOR MANUAL DIFFERENTIAL STAT 05/13/2024 4 :57 PM HALL SUPERVISOR CBC WITH PLATELETS AND DIFFERENTIAL STAT 05/13/2024 4:57 PM HALL SUPERVISOR TROPONIN T, HIGH SENSITIVITY STAT 05/13/2024 4:57 PM HALL SUPERVISOR RETICULOCYTE COUNT STAT 05/13/2024 4: 57 PM HALL SUPERVISOR HEPATIC FUNCTION PANEL STAT 4:57 PM HALL SUPERVISOR BASIC METABOLIC PANEL STAT 05/13/2024 4:57 PM HALL SUPERVISOR ECG 12-LEAD WITH MUSE SJN,SJO,WWH STAT 05/13/2024 3:38 PM HALL SUPERVISOR INFLUENZA A/B, RSV AND SARS-COV2 PCR STAT 05/08/2024 7:33 PM HALL SUPERVISOR XR CHEST 2 VIEWS STAT 05/08/2024 5:27 PM HALL SUPERVISOR CBC WITH PLATELETS & DIFFERENTIAL STAT 05/08/2024 4:14 PM HALL SUPERVISOR RBC AND PLATELET MORPHOLOGY STAT 05/08/2024 4:14 PM HALL SUPERVISOR CBC WITH PLATELETS AND DIFFERENTIAL STAT 05/08/2024 4:14 PM HALL SUPERVISOR HCG QUALITATIVE STAT 05/08/2024 4:14 PM HALL SUPERVISOR INR STAT 05/08/2024 4:14 PM HALL SUPERVISOR TROPONIN T, HIGH SENSITIVITY STAT 05/08/2024 4:14 PM HALL SUPERVISOR RETICULOCYTE COUNT STAT 05/08/2024 4: 14 PM HALL SUPERVISOR COMPREHENSIVE METABOLIC PANEL STAT 05/08/2024 4:14 PM HALL SUPERVISOR ECG 12-LEAD WITH MUSE SJN,SJO,WWH STAT 05/08/2024 3:13 PM HALL SUPERVISOR ECG 12-LEAD WITH MUSE SJN,SJO,WWH STAT 05/06/2024 7:51 PM HALL SUPERVISOR CBC WITH PLATELETS & DIFFERENTIAL STAT 05/06/2024 7:43 PM HALL SUPERVISOR RBC AND PLATELET MORPHOLOGY STAT 05/06/2024 7:43 PM HALL SUPERVISOR CBC WITH PLATELETS AND DIFFERENTIAL STAT 05/06/2024 7:43 PM HALL SUPERVISOR HEPATIC FUNCTION PANEL STAT 7:43 PM HALL SUPERVISOR RETICULOCYTE COUNT STAT 05/06/2024 7: 43 PM HALL SUPERVISOR TROPONIN T, HIGH SENSITIVITY STAT 05/06/2024 7:43 PM HALL SUPERVISOR BASIC METABOLIC PANEL STAT 05/06/2024 7:43 PM HALL SUPERVISOR XR CHEST 2 VIEWS STAT 05/05/2024 12:16 PM HALL SUPERVISOR CBC WITH PLATELETS & DIFFERENTIAL STAT 05/05/2024 11:50 AM HALL SUPERVISOR RBC AND PLATELET MORPHOLOGY STAT 05/05/2024 11:50 AM HALL SUPERVISOR CBC WITH PLATELETS AND DIFFERENTIAL STAT 05/05/2024 11:50 AM HALL SUPERVISOR TROPONIN T, HIGH SENSITIVITY STAT 05/05/2024 11:50 AM HALL SUPERVISOR RETICULOCYTE COUNT STAT 05/05/2024 11:50 AM HALL SUPERVISOR BASIC METABOLIC PANEL STAT 05/05/2024 11:50 AM HALL SUPERVISOR ECG 12-LEAD WITH MUSE SJN,SJO,WWH STAT 05/05/2024 11:03 AM HALL SUPERVISOR CBC WITH PLATELETS & DIFFERENTIAL STAT 04/28/2024 1:50 AM HALL SUPERVISOR VITAMIN D DEFICIENCY SCREENING Add-On 04/28/2024 1:50 AM HALL SUPERVISOR Sickle cell pain crisis (H) MANUAL DIFFERENTIAL STAT 04/28/2024 1 :50 AM HALL SUPERVISOR CBC WITH PLATELETS AND DIFFERENTIAL STAT 04/28/2024 1:50 AM HALL SUPERVISOR RETICULOCYTE COUNT STAT 04/28/2024 1: 50 AM HALL SUPERVISOR COMPREHENSIVE METABOLIC PANEL STAT 04/28/2024 1:50 AM HALL SUPERVISOR CBC WITH PLATELETS & DIFFERENTIAL STAT 04/27/2024 12:23 AM HALL SUPERVISOR RBC AND PLATELET MORPHOLOGY STAT 04/27/2024 12:23 AM HALL SUPERVISOR CBC WITH PLATELETS AND DIFFERENTIAL STAT 04/27/2024 12:23 AM HALL SUPERVISOR RETICULOCYTE COUNT STAT 04/27/2024 12:23 AM HALL SUPERVISOR COMPREHENSIVE METABOLIC PANEL STAT 04/27/2024 12:[address] PELVIS BONE WO CONTRAST STAT 04/19/2024 3:22 AM HALL SUPERVISOR HCG QUALITATIVE URINE STAT 04/19/2024 2:17 AM HALL SUPERVISOR ROUTINE UA WITH MICROSCOPIC REFLEX TO CULTURE STAT 04/19/2024 2:16 AM HALL SUPERVISOR CBC WITH PLATELETS & DIFFERENTIAL STAT 04/19/2024 2:11 AM HALL SUPERVISOR MANUAL DIFFERENTIAL STAT 04/19/2024 2 :11 AM HALL SUPERVISOR CBC WITH PLATELETS AND DIFFERENTIAL STAT 04/19/2024 2:11 AM HALL SUPERVISOR RETICULOCYTE COUNT STAT 04/19/2024 2: 11 AM HALL SUPERVISOR BASIC METABOLIC PANEL STAT 04/19/2024 2:11 AM HALL SUPERVISOR CBC WITH PLATELETS & DIFFERENTIAL Routine 04/10/2024 5:35 AM HALL SUPERVISOR CBC WITH PLATELETS AND DIFFERENTIAL Routine 04/10/2024 5:35 AM HALL SUPERVISOR CBC WITH PLATELETS STAT 04/09/2024 6: 13 AM HALL SUPERVISOR BASIC METABOLIC PANEL STAT 04/09/2024 6:13 AM HALL SUPERVISOR CBC WITH PLATELETS & DIFFERENTIAL STAT 04/08/2024 10:22 PM HALL SUPERVISOR EXTRA RED TOP TUBE STAT 04/08/2024 10:22 PM HALL SUPERVISOR EXTRA BLUE TOP TUBE STAT 04/08/2024 10:22 PM HALL SUPERVISOR CBC WITH PLATELETS AND DIFFERENTIAL STAT 04/08/2024 10:22 PM HALL SUPERVISOR EXTRA TUBE STAT 04/08/2024 10:22 PM HALL SUPERVISOR BASIC METABOLIC PANEL STAT 04/08/2024 10:22 PM HALL SUPERVISOR RETICULOCYTE COUNT STAT 04/08/2024 10:22 PM HALL SUPERVISOR ECG 12-LEAD WITH MUSE SJN,SJO,WWH STAT 04/08/2024 9:[address] CHEST PULMONARY EMBOLISM W CONTRAST STAT 04/06/2024 2:22 AM HALL SUPERVISOR D DIMER QUANTITATIVE STAT 04/06/2024 12:45 AM HALL SUPERVISOR TROPONIN T, HIGH SENSITIVITY STAT 04/06/2024 12:45 AM HALL SUPERVISOR BASIC METABOLIC PANEL STAT 04/06/2024 12:45 AM HALL SUPERVISOR CBC WITH PLATELETS AND DIFFERENTIAL STAT 04/06/2024 12:43 AM HALL SUPERVISOR ECG 12-LEAD WITH MUSE SJN,SJO,WWH STAT 04/06/2024 12:41 AM HALL SUPERVISOR CBC WITH PLATELETS & DIFFERENTIAL STAT 04/05/2024 11:47 PM HALL SUPERVISOR from Last 3 Months Results * (ABNORMAL) CBC with platelets and differential (07/02/2024 7:03 PM CDT) Only the most recent of37 resultswithin the time period is included. Pathologist [facility] WBC Count 10.1 4.0 - 11.0 10e3/uL [...] Fi nal Result [facility] [address] [facility], [address] [place] [address], [facility] * Adult Type and Screen (07/02/2024 7:03 PM CDT) Only the most recent of6 resultswithin the time period is included. Pathologist [facility] ABO/RH(D) A POS 07/02/2024 6:10 PM CDT [facility] B[facility]OD BANK Antibody Screen Negative Negative 07/02/2024 6:10 PM CDT [facility] BLO[facility] BANK SPECIMEN EXPIRATION DATE [id number] 07/02/2024 6:10 PM CDT [facility] Blood BLOOD SPECIMEN / Unknown Venipuncture / Unknown 07/02/2024 7:03 PM CDT 07/02/2024 7:13 PM CDT Vasiliy Lutz DO LAB - BLOOD BANK TEST ORD ER Final Result [facility] BLOOD BANK [address] [place] [address], [facility] * (ABNORMAL) Manual Differential (07/02/2024 7:03 [...] Fi nal Result [facility] [address] [facility], [address] [place] [phone] * (ABNORMAL) Comprehensive metabolic panel (07/02/2024 [...] Fi nal Result [facility] [address] [facility], [address] [place] [address] * (ABNORMAL) Manual Differential (07/01/2024 8:00 PM HALL SUPERVISOR) Only the most recent of8 resultswithin the time period is included. % Neutrophils 63 % JARET 07/01/2024 9:50 PM HALL SUPERVISOR [facility] % Lymphocytes 25 % JARET 07/01/2024 9:50 PM HALL SUPERVISOR [facility] % Monocytes 8 % JARET 07/01/2024 9:50 PM HALL SUPERVISOR [facility] % Eosinophils 0 % JARET 07/01/2024 9:50 PM HALL SUPERVISOR [facility] % Basophils 4 % JARET 07/01/2024 9:50 PM HALL SUPERVISOR [facility] % Myelocytes 0 % JARET 07/01/2024 9:50 PM HALL SUPERVISOR [facility] Absolute Neutrophils 4.9 1.6 - 8.3 10e3/uL JARET 07/01/2024 9:50 PM HALL SUPERVISOR [facility] Absolute Lymphocytes 1.9 0.8 - 5.3 10e3/uL JARET 07/01/2024 9:50 PM HALL SUPERVISOR [facility] Absolute Monocytes 0.6 0.0 - 1.3 10e3/uL JARET 07/01/2024 9:50 PM HALL SUPERVISOR [facility] Absolute Eosinophils 0.0 0.0 - 0.7 10e3/uL JARET 07/01/2024 9:50 PM HALL SUPERVISOR [facility] Absolute Basophils 0.3(H) 0.0 - 0.2 10e3/uL JARET 07/01/2024 9:50 PM HALL SUPERVISOR [facility] Absolute Myelocytes 0.0 <=0.0 10e3/uL JARET 07/01/2024 9:50 PM HALL SUPERVISOR [facility] NRBCs per 100 WBC 17 % JARET 07/01/2024 9:50 PM HALL SUPERVISOR [facility] Absolute NRBCs 1.3 10e3/uL JARET 07/01/2024 9:50 PM HALL SUPERVISOR [facility] RBC Morphology Confirmed RBC Indices JARET 07/01/2024 9:50 PM HALL SUPERVISOR [facility] Platelet Assessment Automated Count Confirmed. Platelet morphology is normal. Automated Count Confirmed. Platelet morphology is normal. JARET 07/01/2024 9:50 PM HALL SUPERVISOR [facility] Polychromasia Slight(A) None Seen JARET 07/01/2024 9:50 PM HALL SUPERVISOR [facility] Sickle Cells Slight(A) None Seen JARET 07/01/2024 9:50 PM HALL SUPERVISOR [facility] Target Cells Slight(A) None Seen JARET 07/01/2024 9:50 PM HALL SUPERVISOR [facility] Blood BLOOD SPECIMEN / Unknown Venipuncture / Unknown 07/01/2024 8:00 PM HALL SUPERVISOR 07/01/2024 8:07 PM HALL SUPERVISOR Narrative [facility] - 07/01/2024 9:50 PM HALL SUPERVISOR Differential done on Albumin treated blood due to Smudge Cells. us Andres Tejada MD LAB - BLOOD ORDERABLES Liss l Result LABORATORY [facility] Lab [address] [facility], [address] * (ABNORMAL) Reticulocyte count (07/01/2024 8:00 PM HALL SUPERVISOR) Only the most recent of24 resultswithin the time period is included. % Reticulocyte 7.3(H) 0.5 - 2.0 % 07/01/2024 8:13 PM HALL SUPERVISOR [facility] Absolute Reticulocyte 0.159(H) 0.025 - 0.095 10e6/uL 07/01/2024 8:13 PM HALL SUPERVISOR U LABORATORY Blood BLOOD SPECIMEN / Unknown Venipuncture / Unknown 07/01/2024 8:00 PM HALL SUPERVISOR 07/01/2024 8:07 PM HALL SUPERVISOR Andres Tejada MD LAB - BLOOD ORDERABLES Liss l Result Performing Organization Address [facility]/ZIP Co de Phone Number LABORATORY [facility] Lab [address] [facility], [address] * Extra Purple Top Tube (06/29/2024 6:05 AM HALL SUPERVISOR) Only the most recent of2 resultswithin the time period is included. Hold Specimen JIC 06/29/2024 7:31 AM HALL SUPERVISOR LABORATORY Blood ARTERIAL LINE / Unknown IVAD (Port) / Unknown 06/29/2024 6:05 AM HALL SUPERVISOR 06/29/2024 6:19 AM HALL SUPERVISOR Alex Gillespie MD LAB - BLOOD ORDERABLES Final Re sult LABORATORY [facility] Lab [address] [facility], [address] * (ABNORMAL) RBC and Platelet Morphology (06/28/2024 6:06 AM HALL SUPERVISOR) Only the most recent of16 resultswithin the time period is included. RBC Morphology Confirmed RBC Indices 06/28/2024 7:15 AM HALL SUPERVISOR [facility] Platelet Assessment Automated Count Confirmed. Platelet morphology is normal. Automated Count Confirmed. Platelet morphology is normal. 06/28/2024 7:15 AM HALL SUPERVISOR [facility] Sickle Cells Slight(A) None Seen 06/28/2024 7:15 AM HALL SUPERVISOR [facility] Target Cells Moderate(A) None Seen 06/28/2024 7:15 AM HALL SUPERVISOR [facility] Blood VENOUS LINE / Unknown Venipuncture / Unknown 06/28/2024 6:06 AM HALL SUPERVISOR 06/28/2024 6:22 AM HALL SUPERVISOR Polly Allen MD LAB - BLOOD ORDER SYD Final Result Performing Organization Address City/[facility]/ZIP Co de Phone Number U LABORATORY [facility] Core Lab [address] [facility], [address] * (ABNORMAL) Lactate Dehydrogenase (06/28/2024 6:06 AM HALL SUPERVISOR) Only the most recent of5 resultswithin the time period is included. Pathologist [facility] Lactate Dehydrogenase 451(H) 0 - 250 U/L 06/28/2024 6:51 AM HALL SUPERVISOR [facility] Blood VENOUS LINE / Unknown Venipuncture / Unknown 06/28/2024 6:06 AM HALL SUPERVISOR 06/28/2024 6:22 AM HALL SUPERVISOR Polly Allen MD LAB - BLOOD ORDER SYD Final Result U [facility]ATORY [facility] Lab [address] [facility], [address] * (ABNORMAL) Bilirubin direct (06/28/2024 6:06 AM HALL SUPERVISOR) Bilirubin Direct 0.53(H) 0.00 - 0.30 mg/dL 06/28/2024 9:50 AM HALL SUPERVISOR [facility] Blood VENOUS LINE / Unknown Venipuncture / Unknown 06/28/2024 6:06 AM HALL SUPERVISOR 06/28/2024 6:22 AM HALL SUPERVISOR Polly Allen MD LAB - BLOOD ORDER SYD Final Result Performing Organization Address City/[facility] Co de Phone Number LABORATORY [facility] Lab [address] [facility], [address] [phone] * Heparin Unfractionated Anti Xa Level (06/28/2024 1:57 AM HALL SUPERVISOR) Only the most recent of5 resultswithin the time period is included. Anti Xa Unfractionated Heparin 0.45 For Reference Range, See Comment IU/mL 06/28/2024 2:32 AM HALL SUPERVISOR [facility] Blood VENOUS LINE / Unknown Venipuncture / Unknown 06/28/2024 1:57 AM HALL SUPERVISOR 06/28/2024 2:17 AM HALL SUPERVISOR Narrative [facility] - 06/28/2024 2:32 AM HALL SUPERVISOR Therapeutic Range: UFH: 0.25-0.50 IU/mL for low intensity dosing, 0.30-0.70 IU/mL for high intensity dosing DVT and PE. This test is not validated for other direct factor X inhibitors (e.g. rivaroxaban, apixaban, edoxaban, betrixaban, fondaparinux) and should not be used for monitoring of other medications. Alex Gillespie MD LAB - BLOOD ORDERABLES Final Re sult Performing Organization Address City/[facility]/ZIP Co de Phone Number LABORATORY [facility] Lab [address] [facility], [address] [phone] * Extra Green Top ([facility] Heparin) Tube (06/27/2024 5:55 PM HALL SUPERVISOR) Only the most recent of2 resultswithin the time period is included. Hold Specimen JIC 06/27/2024 8:31 PM HALL SUPERVISOR [facility] Blood STRUCTURE OF RIGHT WRIST REGION / Unknown Venipuncture / Unknown 06/27/2024 5:55 PM HALL SUPERVISOR 06/27/2024 7:22 PM HALL SUPERVISOR us Alex Gillespie MD LAB - BLOOD ORDERABLES Final Re sult [facility] Lab [address] [facility], [address] [phone] * ECHO COMPLETE (06/27/2024 2:33 PM HALL SUPERVISOR) LVEF 55-60% CARDIOLOGY RESULTS Anatomical Region Laterality Modality Echocardiography 06/27/2024 1:58 PM HALL SUPERVISOR Narrative 06/27/2024 2:51 PM HALL SUPERVISOR [id number]^BRITTANEY^JERMAINE [facility] [facility] [address] [place] [address] Name: LEW HERNÁNDEZ : 1995 Study Date: 06/27/2024 01:58 PM Age: 29 yrs Gender: Female Patient Location: [facility] Reason For Study: Pulmonary Emboli [...] Procedure Note Salvador Perea MD - 06/27/2024 [id number]^BRITTANEY^JERMAINE [facility] [address] [place] [id number] Name: LEW HERNÁNDEZ : 1995 Study Date: 06/27/2024 01:58 PM Age: 29 yrs Gender: Female Patient Location: [facility] Reason For Study: Pulmonary Emboli [...] Extremity Venous Duplex Bilateral (06/27/2024 11:21 AM HALL SUPERVISOR) Anatomical Region Laterality Modality Vascular, Thigh, Leg Ultrasound Impressions 06/27/2024 11:45 AM HALL SUPERVISOR IMPRESSION: No evidence of deep venous thrombosis in either lower extremity. I have personally reviewed the examination and initial interpretation and I agree with the findings. NINOSKA QUAN MD Narrative 06/27/2024 11:45 AM HALL SUPERVISOR EXAMINATION: DOPPLER VENOUS ULTRASOUND OF BILATERAL [...] NINOSKA QUAN MD us Polly Allen MD [facility] [place] ORDERABLES Final Result * Influenza A/B, RSV and SARS-CoV2 PCR (COVID-19) Nose (06/27/2024 8:43 AM HALL SUPERVISOR) Only the most recent of4 resultswithin the time period is included. Influenza A PCR Negative Negative 06/27/2024 10:03 AM HALL SUPERVISOR [facility] Influenza B PCR Negative Negative 06/27/2024 10:03 AM HALL SUPERVISOR [facility] RSV PCR Negative Negative 06/27/2024 10:03 AM HALL SUPERVISOR [facility] SARS CoV2 PCR Negative Negative 06/27/2024 10:03 AM HALL SUPERVISOR [facility] Comment:NEGATIVE: SARS-CoV-2 (COVID-19) RNA not detected, presumed negative. Swab NASAL STRUCTURE / Unknown Non-blood Collection / Unknown 06/27/2024 8:43 AM HALL SUPERVISOR 06/27/2024 8:59 AM HALL SUPERVISOR Narrative [facility] - 06/27/2024 10:03 AM HALL SUPERVISOR Testing was performed using the Xpert Xpress CoV2/Flu/RSV Assay on the [employer] GeneXpert Instrument. This test should be ordered [...] management. This test was validated by the [facility]. These laboratories are certified under the Clinical Laboratory Improvement Amendments of 1988 (CLIA-88) as qualified to perfom high complexity laboratory testing. Polly Allen MD LAB - MICRO GENER AL ORDERABLES Final Result [facility] MERIT [facility] Inf[facility] Di[facility] Lab 500 [facility], [address] [place] [address], [place] * (ABNORMAL) UA with Microscopic reflex to Culture (06/27/2024 8:12 AM HALL SUPERVISOR) Only the most recent of6 resultswithin the time period is included. Color Urine Light Yellow Colorless, Straw, Light Yellow, Yellow 06/27/2024 8:29 AM HALL SUPERVISOR [facility] Appearance Urine Clear Clear 06/28/19 8:29 AM HALL SUPERVISOR [facility] Glucose Urine Negative Negative mg/dL 06/27/2024 8:29 AM HALL SUPERVISOR [facility] Bilirubin Urine Negative Negative 8:29 AM HALL SUPERVISOR [facility] Ketones Urine Negative Negative mg/dL 06/27/2024 8:29 AM HALL SUPERVISOR [facility] Specific [place] Urine 1.011 1.003 - 1.035 06/27/2024 8:29 AM HALL SUPERVISOR [facility] Blood Urine Negative Negative 06/27/2024 8:29 AM HALL SUPERVISOR [facility] pH Urine 7.0 5.0 - 7.0 06/27/2024 8:29 AM HALL SUPERVISOR [facility] Protein Albumin Urine Negative Negative mg/dL 06/27/2024 8:29 AM HALL SUPERVISOR [facility] Urobilinogen Urine Normal Normal, 2.0 mg/dL 06/27/2024 8:29 AM HALL SUPERVISOR [facility] Nitrite Urine Negative Negative 06/27/2024 8:29 AM HALL SUPERVISOR [facility] Leukocyte Esterase Urine Negative Negative 06/27/2024 8:29 AM HALL SUPERVISOR [facility] RBC Urine 0 <=2 /HPF 06/27/2024 8:29 AM HALL SUPERVISOR [facility] WBC Urine 0 <=5 /HPF 06/27/2024 8:29 AM HALL SUPERVISOR [facility] Squamous Epithelials Urine 2(H) <=1 /HPF 06/27/2024 8:29 AM HALL SUPERVISOR [facility] Urine URINE SPECIMEN OBTAINED BY CLEAN CATCH PROCEDURE / Unknown Non-blood Collection / Unknown 06/27/2024 8:12 AM HALL SUPERVISOR 06/27/2024 8:18 AM HALL SUPERVISOR Narrative [facility] - 06/27/2024 8:29 AM HALL SUPERVISOR Urine Culture not indicated us Polly Allen MD LAB - URINE ORDER SYD Final Result [facility] Lab [address] [facility], [address] [id number] * (ABNORMAL) Hepatic panel (06/27/2024 5:57 AM HALL SUPERVISOR) Only the most recent of5 resultswithin the time period is included. [facility] Protein Total 7.4 6.4 - 8.3 g/dL 06/27/2024 9:06 AM HALL SUPERVISOR [facility] Albumin 4.0 3.5 - 5.2 g/dL 06/27/2024 9:06 AM HALL SUPERVISOR [facility] Bilirubin Total 1.2 <=1.2 mg/dL 06/27/2024 9:06 AM HALL SUPERVISOR [facility] Alkaline Phosphatase 113 40 - 150 U/L 06/27/2024 9:06 AM HALL SUPERVISOR [facility] AST 41 0 - 45 U/L 06/27/2024 9:06 AM HALL SUPERVISOR [facility] ALT 35 0 - 50 U/L 06/27/2024 9:06 AM HALL SUPERVISOR [facility] Bilirubin Direct 0.45(H) 0.00 - 0.30 mg/dL 06/27/2024 9:06 AM HALL SUPERVISOR [facility] Blood BLOOD SPECIMEN / Unknown Venipuncture / Unknown 06/27/2024 5:57 AM HALL SUPERVISOR 06/27/2024 6:06 AM HALL SUPERVISOR us Polly Allen MD LAB - BLOOD ORDER SYD Final Result [facility] Core Lab [address] [facility], [address] [phone] * (ABNORMAL) Basic metabolic panel (06/27/2024 5:57 AM HALL SUPERVISOR) Only the most recent of23 resultswithin the time period is included. [facility] Sodium 136 135 - 145 mmol/L 06/27/2024 7:08 AM HALL SUPERVISOR [facility] Potassium 4.2 3.4 - 5.3 mmol/L 06/27/2024 7:08 AM HALL SUPERVISOR [facility] Chloride 104 98 - 107 mmol/L 06/27/2024 7:08 AM HALL SUPERVISOR [facility] Carbon Dioxide (CO2) 23 22 - 29 mmol/L 06/27/2024 7:08 AM HALL SUPERVISOR [facility] Anion Gap 9 7 - 15 mmol/L 06/27/2024 7:08 AM HALL SUPERVISOR [facility] Urea Nitrogen 8.0 6.0 - 20.0 mg/dL 06/27/2024 7:08 AM HALL SUPERVISOR [facility] Creatinine 0.74 0.51 - 0.95 mg/dL 06/27/2024 7:08 AM HALL SUPERVISOR [facility] GFR Estimate >90 >60 mL/min/1.7 3m2 06/27/2024 7:08 AM HALL SUPERVISOR [facility] Comment:eGFR calculated usin 2020 CKD-EPI equation. Calcium 8.7(L) 8.8 - 10.4 mg/dL 06/27/2024 7:08 AM HALL SUPERVISOR [facility] Glucose 90 70 - 99 mg/dL 06/27/2024 7:08 AM HALL SUPERVISOR [facility] Blood BLOOD SPECIMEN / Unknown Venipuncture / Unknown 06/27/2024 5:57 AM HALL SUPERVISOR 06/27/2024 6:06 AM HALL SUPERVISOR us Jermaine Quispe MD LAB - BLOOD ORDERABLES Final Res ult [facility] Lab [address] [facility], [address] [phone] * (ABNORMAL) CBC with platelets (06/27/2024 5:57 AM HALL SUPERVISOR) Only the most recent of6 resultswithin the time period is included. WBC Count 17.8(H) 4.0 - 11.0 10e3/uL 06/27/2024 6:16 AM HALL SUPERVISOR [facility] RBC Count 2.60(L) 3.80 - 5.20 10e6/uL 06/27/2024 6:16 AM HALL SUPERVISOR [facility] Hemoglobin 8.5(L) 11.7 - 15.7 g/dL 06/27/2024 6:16 AM HALL SUPERVISOR [facility] Hematocrit 25.9(L) 35.0 - 47.0 % 06/27/2024 6:16 AM HALL SUPERVISOR [facility] MCV 100 78 - 100 fL 06/27/2024 6:16 AM HALL SUPERVISOR [facility] MCH 32.7 26.5 - 33.0 pg 06/27/2024 6:16 AM HALL SUPERVISOR [facility] MCHC 32.8 31.5 - 36.5 g/dL 06/27/2024 6:16 AM HALL SUPERVISOR [facility] RDW 19.2(H) 10.0 - 15.0 % 06/27/2024 6:16 AM HALL SUPERVISOR [facility] Platelet Count 469(H) 150 - 450 10e3/uL 06/27/2024 6:16 AM HALL SUPERVISOR [facility] Blood BLOOD SPECIMEN / Unknown Venipuncture / Unknown 06/27/2024 5:57 AM HALL SUPERVISOR 06/27/2024 6:07 AM HALL SUPERVISOR us Jermaine Quispe MD LAB - BLOOD ORDERABLES Final Res ult [facility] Lab [address] [facility], [address] * (ABNORMAL) Erythrocyte sedimentation rate auto (06/26/2024 6:46 PM HALL SUPERVISOR) Erythrocyte Sedimentation Rate 24(H) 0 - 20 mm/hr 06/26/2024 7:28 PM HALL SUPERVISOR [facility] Blood BLOOD SPECIMEN / Unknown Venipuncture / Unknown 06/26/2024 6:46 PM HALL SUPERVISOR 06/26/2024 7:14 PM HALL SUPERVISOR us Jermaine Quispe MD LAB - BLOOD ORDERABLES Final Res ult [facility] Lab [address] [facility], [address] * Blood Culture Peripheral Blood (06/26/2024 6:46 PM HALL SUPERVISOR) Only the most recent of5 resultswithin the time period is included. Culture No Growth 07/01/2024 9:47 PM HALL SUPERVISOR [facility] Blood BLOOD SPECIMEN / Unknown Venipuncture / Unknown 06/26/2024 6:46 PM HALL SUPERVISOR 06/26/2024 7:14 PM HALL SUPERVISOR Jermaine Quispe MD LAB - MICRO GENERAL ORDERABLES F inal Result [facility] Inf. Diseases Diag. Lab [address] [facility], [address] [place] [phone] * EKG 12 lead (06/26/2024 5:19 PM HALL SUPERVISOR) Only the most recent of4 resultswithin the time period is included. Systolic Blood Pressure mmHg RADIOLOGY RESULTS Diastolic Blood Pressure mmHg RADIOLOGY RESULTS Ventricular Rate 79 BPM RAD IOLOGY RESULTS Atrial Rate 79 BPM RADIOLOG Y RESULTS CO Interval 160 ms RADIOLOG Y RESULTS QRS Duration 78 ms RADIOLO GY RESULTS QT 380 ms RADIOLOGY RESULTS QTc 435 ms RADIOLOGY RESULTS P [place] 39 degrees RADIOLOGY RESULTS R AXIS 42 degrees RADIOLOGY RESULTS T [place] 18 degrees RADIOLOGY RESULTS Interpretation ECG Sinus rhythm Normal ECG Unconfirmed report - interpretation of this ECG is computer generated - see medical record for final interpretation Confirmed by - EMERGENCY ROOM, PHYSICIAN ([id number]), slot editor Woody Patten ([id number]) on 06/27/2024 6:46:34 AM RADIOLOGY RESULTS 06/26/2024 5:19 PM HALL SUPERVISOR 06/27/2024 6:46 AM HALL SUPERVISOR Jayden Adhikari MD ECG ORDERABLES Edited Resul t - Final RADIOLOGY RESULTS * CT Chest Pulmonary Embolism w Contrast (06/26/2024 4:15 PM HALL SUPERVISOR) Only the most recent of3 resultswithin the time period is included. 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 No definitive evidence of right heart strain. Some bony changes again noted of sickle cell in the thoracic spine and humeral heads typical of microvascular insults related to sickle cell. EVY FUENTES MD Narrative 06/26/2024 4:[address] chest pulmonary angiogram with contrast [...] XR, PA & LAT (06/26/2024 3:13 PM HALL SUPERVISOR) Only the most recent of9 resultswithin the time period is included. Anatomical Region Laterality Modality Chest Digital Radiogra phy Impressions 06/26/2024 3:24 PM HALL SUPERVISOR IMPRESSION: 1. Stable appearance of right middle lobe opacities which may represent infiltrate versus atelectasis. 2. No new or worsening cardiopulmonary abnormality. I have personally reviewed the examination and initial interpretation and I agree with the findings. EVY FUENTES MD Narrative 06/26/2024 3:24 PM HALL SUPERVISOR EXAM: XR CHEST 2 VIEWS 06/26/2024 [...] Troponin T, High Sensitivity (06/26/2024 2:42 PM HALL SUPERVISOR) Only the most recent of12 resultswithin the time period is included. [facility] Troponin T, High Sensitivity <6 <=14 ng/L 06/26/2024 3:24 PM HALL SUPERVISOR [facility] Comment: Either a High [...] Unknown Venipuncture / Unknown 06/26/2024 2:42 PM HALL SUPERVISOR 06/26/2024 2:52 PM HALL SUPERVISOR Jayden Adhikari MD LAB - BLOOD ORDERABLES Final Result [facility] Lab [address] [facility], [address] [place] [phone] * Procalcitonin (06/26/2024 2:42 PM HALL SUPERVISOR) Procalcitonin 0.03 <0.50 ng/mL 06/26/2024 5:02 PM HALL SUPERVISOR [facility] Comment: Interpretation and Recommendations [...] See Procalcitonin Guidance document for more details. [email or web address] Factors that may affect PCT levels (not [...] Unknown Venipuncture / Unknown 06/26/2024 2:42 PM HALL SUPERVISOR 06/26/2024 2:52 PM HALL SUPERVISOR us Jayden Adhikari MD LAB - BLOOD ORDERABLES Final Result U [facility]ATORY [facility] Lab [address] [facility], [address] [place] [address], [facility] * HCG qualitative (blood) (06/26/2024 2:42 PM HALL SUPERVISOR) Only the most recent of7 resultswithin the time period is included. hCG Serum Qualitative Negative Negative JARET 06/26/2024 3:04 PM HALL SUPERVISOR [facility] Comment:This test is for scr eening purposes. Results should be interpreted along with the clinical picture. Confirmation testing is available if warranted by ordering [id number], HCG Quantitative . Blood BLOOD SPECIMEN / Unknown Venipuncture / Unknown 06/26/2024 2:42 PM HALL SUPERVISOR 06/26/2024 2:50 PM HALL SUPERVISOR Jayden Adhikari MD LAB - BLOOD ORDERABLES Final Result Performing Organization Address City/[facility]/ZIP Co de Phone Number [facility] Lab [address] [facility], [address] * (ABNORMAL) D dimer quantitative (06/26/2024 2:42 PM HALL SUPERVISOR) Only the most recent of2 resultswithin the time period is included. [facility] D-Dimer Quantitative 0.69(H) 0.00 - 0.50 ug/mL FEU 06/26/2024 3:13 PM HALL SUPERVISOR [facility] Blood BLOOD SPECIMEN / Unknown Venipuncture / Unknown 06/26/2024 2:42 PM HALL SUPERVISOR 06/26/2024 2:52 PM HALL SUPERVISOR Narrative [facility] - 06/26/2024 3:13 PM HALL SUPERVISOR This D-dimer assay is intended for use in conjunction with a clinical pretest probability assessment model to exclude pulmonary embolism (PE) and deep venous thrombosis (DVT) in outpatients suspected of PE or DVT. The cut-off value is 0.50 ug/mL FEU. Jayden Adhikari MD LAB - BLOOD ORDERABLES Final Result Performing Organization Address City/[facility] Co de Phone Number U LABORATORY [facility] Core Lab [address] [facility], [address] * CRP inflammation (06/26/2024 2:42 PM HALL SUPERVISOR) [facility] CRP Inflammation 4.22 <5.00 mg/L 06/27/19 5:02 PM HALL SUPERVISOR [facility] Blood BLOOD SPECIMEN / Unknown Venipuncture / Unknown 06/26/2024 2:42 PM HALL SUPERVISOR 06/26/2024 2:52 PM HALL SUPERVISOR Jayden Adhikari MD LAB - BLOOD ORDERABLES Final Result Performing Organization Address City/[facility]/ZIP Co de Phone Number LABORATORY [facility] Core Lab [address] [facility], [address] [phone] [place] [address] * (ABNORMAL) INR (06/24/2024 10:11 AM HALL SUPERVISOR) Only the most recent of3 resultswithin the time period is included. INR 1.45(H) 0.85 - 1.15 06/24/2024 10:54 AM HALL SUPERVISOR [facility] Blood BLOOD SPECIMEN / Unknown Venipuncture / Unknown 06/24/2024 10:11 AM HALL SUPERVISOR 06/24/2024 10:21 AM HALL SUPERVISOR Richar Mahajan MD LAB - BLOOD ORDERABLES Liss l Result Performing Organization Address City/[facility]/ZIP Co de Phone Number LABORATORY [facility] Core Lab [address] [facility], [address] [phone] [place] [address] * Partial thromboplastin time (06/24/2024 10:11 AM HALL SUPERVISOR) aPTT 32 22 - 38 Seconds 06/24/2024 10:55 AM HALL SUPERVISOR [facility] Blood BLOOD SPECIMEN / Unknown Venipuncture / Unknown 06/24/2024 10:11 AM HALL SUPERVISOR 06/24/2024 10:21 AM HALL SUPERVISOR Richar Mahajan MD LAB - BLOOD ORDERABLES Liss l Result Performing Organization Address City/[facility]/ZIP Co de Phone Number LABORATORY [facility] Lab [address] [facility], [address] [phone] [place] [address] * Magnesium (06/24/2024 10:11 AM HALL SUPERVISOR) Magnesium 2.1 1.7 - 2.3 mg/dL 06/24/2024 10:51 AM HALL SUPERVISOR [facility] Blood BLOOD SPECIMEN / Unknown Venipuncture / Unknown 06/24/2024 10:11 AM HALL SUPERVISOR 06/24/2024 10:21 AM HALL SUPERVISOR Richar Mahajan MD LAB - BLOOD ORDERABLES Liss l Result U LABORATORY [facility] Lab [address] [facility], [address] * (ABNORMAL) Platelet count (06/19/2024 12:17 AM HALL SUPERVISOR) Platelet Count 467(H) 150 - 450 10e3/uL 06/19/2024 12:44 AM HALL SUPERVISOR [facility] Blood BLOOD SPECIMEN / Unknown Venipuncture / Unknown 06/19/2024 12:17 AM HALL SUPERVISOR 06/19/2024 12:26 AM HALL SUPERVISOR Laquita Kelley MD LAB - BLOOD ORDERABLES Final Re sult Performing Organization Address City/[facility]/ZIP Co de Phone Number U LABORATORY [facility] Core Lab [address] [facility], [address] * Creatinine (06/19/2024 12:17 AM HALL SUPERVISOR) Creatinine 0.72 0.51 - 0.95 mg/dL 06/19/2024 12:51 AM HALL SUPERVISOR [facility] GFR Estimate >90 >60 mL/min/1.7 3m2 06/19/2024 12:51 AM HALL SUPERVISOR [facility] Comment:eGFR calculated 2020 CKD-EPI equation. Blood BLOOD SPECIMEN / Unknown Venipuncture / Unknown 06/19/2024 12:17 AM HALL SUPERVISOR 06/19/2024 12:26 AM HALL SUPERVISOR Laquita Kelley MD LAB - BLOOD ORDERABLES Final Re sult U LABORATORY [facility] Lab [address] [facility], [address] * Transfuse red blood cells (unit), Sickle Cell (Hgb S) Negative (06/17/2024 2:33 PM HALL SUPERVISOR) Only the most recent of2 resultswithin the time period is included. us Drake Nina MD BLOOD TRANSFUSION ORDERABLES Final Result * Prepare red blood cells (unit) (06/17/2024 9:12 AM HALL SUPERVISOR) Only the most recent of2 resultswithin the time period is included. Pathologist [facility] Blood Component Type Red Blood Cells U BLOOD BANK Product Code [id number] [facility]U BLOO D BANK Unit Status Transfused UU BLOO D BANK Unit Number [id number] UU B LOOD BANK CROSSMATCH COMPATIBLE U BLOOD BANK CODING SYSTEM [id number] UU BLO OD BANK ISSUE DATE AND TIME [id number] UU BLOOD BANK UNIT ABO/RH A+ UU BLOOD BANK UNIT TYPE ISBT 6200 UU BL OOD BANK 06/17/2024 9:12 AM HALL SUPERVISOR us Drake Nina MD BLOOD BANK PRODUCT ORDERABLES Final Result Performing Organization Address City/[facility]/ZIP Co de Phone Number U BLOOD BANK [address] [place] [address], [facility] * (ABNORMAL) Transferrin (06/17/2024 6:16 AM HALL SUPERVISOR) Pathologist [facility] Transferrin 100.0(L) 200.0 - 360.0 mg/dL 06/17/2024 9:36 AM HALL SUPERVISOR [facility] Blood VENOUS LINE / Unknown IVAD (Port) / Unknown 06/17/2024 6:16 AM HALL SUPERVISOR 06/17/2024 6:27 AM HALL SUPERVISOR us Drake Nina MD LAB - BLOOD ORDERABLES Final Result U LABORATORY [facility] Lab [address] [facility], [address] [place] [phone], [facility] * Iron and iron binding capacity (06/17/2024 6:16 AM HALL SUPERVISOR) Iron 123 37 - 145 ug/dL 06/17/2024 10:02 AM HALL SUPERVISOR [facility] Iron Binding Capacity 06/17/2024 10:02 AM HALL SUPERVISOR [facility] Comment:Unable to calculate: UIBC or Iron value is outside detectable level. Iron Sat Index 06/17/2024 10:02 AM HALL SUPERVISOR [facility] Comment:Unable to calculate: UIBC or Iron value is outside detectable level. Blood VENOUS LINE / Unknown IVAD (Port) / Unknown 06/17/2024 6:16 AM HALL SUPERVISOR 06/17/2024 6:27 AM HALL SUPERVISOR us Drake Nina MD LAB - BLOOD ORDERABLES Final Result LABORATORY [facility] Lab [address] [facility], [address] * (ABNORMAL) Prolactin (06/16/2024 5:37 PM HALL SUPERVISOR) Pathologist [facility] Prolactin 55(H) 5 - 23 ng/mL 06/16/2024 6:24 PM HALL SUPERVISOR [facility] Blood BLOOD SPECIMEN / Unknown Venipuncture / Unknown 06/16/2024 5:37 PM HALL SUPERVISOR 06/16/2024 5:46 PM HALL SUPERVISOR us Abimael Schofield MD LAB - BLOOD ORDERABLE S Final Result LABORATORY [facility] Lab [address] [facility], [address] * XR Chest Port 1 View (06/14/2024 8:46 AM HALL SUPERVISOR) Anatomical Region Laterality Modality Chest Digital Radiogra phy Impressions 06/14/2024 8:59 AM HALL SUPERVISOR Impression: Further increase in ill-defined opacity projecting over the right lower lung concerning for pneumonia. MARIO ALBERTO BLACKWOOD MD Narrative 06/14/2024 8:59 AM HALL SUPERVISOR Exam: XR CHEST PORT 1 VIEW, 06/14/2024 [...] * Respiratory Panel PCR (06/12/2024 9:34 PM HALL SUPERVISOR) Pathologist [facility] Adenovirus Not Detected Not Detected 06/12/2024 11:53 PM HALL SUPERVISOR [facility] Coronavirus Not Detected Not Detected 06/12/2024 11:53 PM HALL SUPERVISOR [facility] Comment:This test detects Co ronavirus 229E, HKU1, NL63 and OC43 but does not distinguish between them. It does not detect MERS ( Respiratory Syndrome), SARS (Severe Acute Respiratory Syndrome) or 2019-nCoV (Novel 2019) Coronavirus. Human Metapneumovirus Not Detected Not Detected 06/12/2024 11:53 PM HALL SUPERVISOR [facility] Human Rhin/Enterovirus Not Detected Not Detected 06/12/2024 11:53 PM HALL SUPERVISOR [facility] Influenza A Not Detected Not Detected 06/12/2024 11:53 PM HALL SUPERVISOR [facility] Influenza A, H1 Not Detected Not Detected 06/12/2024 11:53 PM HALL SUPERVISOR [facility] Influenza A 2009 H1N1 Not Detected Not Detected 06/12/2024 11:53 PM HALL SUPERVISOR [facility] Influenza A, H3 Not Detected Not Detected 06/12/2024 11:53 PM HALL SUPERVISOR [facility] Influenza B Not Detected Not Detected 06/12/2024 11:53 PM HALL SUPERVISOR [facility] Parainfluenza Virus 1 Not Detected Not Detected 06/12/2024 11:53 PM HALL SUPERVISOR [facility] Parainfluenza Virus 2 Not Detected Not Detected 06/12/2024 11:53 PM HALL SUPERVISOR [facility] Parainfluenza Virus 3 Not Detected Not Detected 06/12/2024 11:53 PM HALL SUPERVISOR [facility] Parainfluenza Virus 4 Not Detected Not Detected 06/12/2024 11:53 PM HALL SUPERVISOR [facility] Respiratory Syncytial Virus A Not Detected Not Detected 06/12/2024 11:53 PM HALL SUPERVISOR [facility] Respiratory Syncytial Virus B Not Detected Not Detected 06/12/2024 11:53 PM HALL SUPERVISOR [facility] Chlamydia Pneumoniae Not Detected Not Detected 06/12/2024 11:53 PM HALL SUPERVISOR [facility] Mycoplasma Pneumoniae Not Detected Not Detected 06/12/2024 11:53 PM HALL SUPERVISOR [facility] Swab NASOPHARYNGEAL STRUCTURE / Unknown Non-blood Collection / Unknown 06/12/2024 9:34 PM HALL SUPERVISOR 06/12/2024 9:47 PM HALL SUPERVISOR Narrative [facility] - 06/12/2024 11:53 PM HALL SUPERVISOR The ePlex Respiratory Panel is a qualitative nucleic acid, multiplex, in vitro diagnostic test for the simultaneous detection and identification of multiple respiratory viral and bacterial nucleic acids in nasopharyngeal swabs collected in viral transport media from individual exhibiting signs and symptoms of respiratory infection. The assay has received FDA approval for the testing of nasopharyngeal (STAPLE PROCESSING MACHINE OPERATOR) swabs only. This test is used for clinical purposes and should not be regarded as investigational or for research. This laboratory is certified under the Clinical Laboratory Improvement Amendments of 1988 (CLIA-88) as qualified to perform high complexity clinical laboratory testing. us Abdelrahman Goddard MD LAB - MICRO GENERAL ORDERABLES Final Result [facility] Inf. Diseases Diag. Lab 500 [facility], [address] [place] [phone] * (ABNORMAL) Blood gas venous (06/12/2024 7:17 PM HALL SUPERVISOR) pH Venous 7.38 7.32 - 7.43 06/12/2024 7:40 PM HALL SUPERVISOR [facility] pCO2 Venous 42 40 - 50 mm Hg 06/12/2024 7:40 PM HALL SUPERVISOR [facility] pO2 Venous 35 25 - 47 mm Hg 06/12/2024 7:40 PM HALL SUPERVISOR [facility] Bicarbonate Venous 24 21 - 28 mmol/L 06/12/2024 7:40 PM HALL SUPERVISOR [facility] Base Excess/Deficit Venous -0.9 -3.0 - 3.0 mmol/L 06/12/2024 7:40 PM HALL SUPERVISOR [facility] FIO2 21 JARET 06/12/2024 7:40 PM HALL SUPERVISOR [facility] Oxyhemoglobin Venous 61(L) 70 - 75 % 06/12/2024 7:40 PM HALL SUPERVISOR [facility] O2 Sat, Venous 63.9(L) 70.0 - 75.0 % 06/12/2024 7:40 PM HALL SUPERVISOR [facility] Blood, venous VENOUS LINE / Unknown Venipuncture / Unknown 06/12/2024 7:17 PM HALL SUPERVISOR 06/12/2024 7:30 PM HALL SUPERVISOR Narrative [facility] - 06/12/2024 7:40 PM HALL SUPERVISOR In healthy individuals, oxyhemoglobin (O2Hb) and oxygen saturation (SO2) are approximately equal. In the presence of dyshemoglobins, oxyhemoglobin can be considerably lower than oxygen saturation. us Abdelrahman Goddard MD LAB - BLOOD ORDERABLES Final R esult [facility] [place] [facility] Lab 500 [facility] [address], [address] [place] [address] * ECG 12-LEAD WITH MUSE (LHE) (06/11/2024 9:04 PM HALL SUPERVISOR) Only the most recent of14 resultswithin the time period is included. Systolic Blood Pressure mmHg RADIOLOGY RESULTS Diastolic Blood Pressure mmHg RADIOLOGY RESULTS Ventricular Rate 102 BPM RAD IOLOGY RESULTS Atrial Rate 102 BPM RADIOLOG Y RESULTS CO Interval 158 ms RADIOLOG Y RESULTS QRS Duration 78 ms RADIOLO GY RESULTS QT 348 ms RADIOLOGY RESULTS QTc 453 ms RADIOLOGY RESULTS P [place] 39 degrees RADIOLOGY RESULTS R AXIS 66 degrees RADIOLOGY RESULTS T [place] 33 degrees RADIOLOGY RESULTS Interpretation ECG Sinus tachycardia Nonspecific T wave abnormality Abnormal ECG When compared with ECG of 05-Jun-2024 11:40, No significant change was found Confirmed by SEE ED PROVIDER NOTE FOR, ECG INTERPRETATION (4000), slot editor SELMA GARRISON ([id number]) on 06/11/2024 9:05:27 PM RADIOLOGY RESULTS 06/11/2024 9:04 PM HALL SUPERVISOR 06/11/2024 9:05 PM HALL SUPERVISOR us Deshawn Arredondo MD ECG ORDERABLES Edited Resu lt - Final Performing Organization Address City/[facility]/ZIP Co de Phone Number RADIOLOGY RESULTS * HGB Eval Reflex to ELP or RBC Solubility (05/29/2024 11:23 AM HALL SUPERVISOR) Alpha Globin (HBA1 and HBA2) DD Bill Billed 05/31/2024 2:46 PM HALL SUPERVISOR [facility] Comment: Performed By: [employer] [address] [place] [address] Head Machinist: Devon Healy MD, PhD CLIA Number: [id number] Blood VENOUS LINE / Unknown IVAD (Port) / Unknown 05/29/2024 11:23 AM HALL SUPERVISOR 05/29/2024 11:30 AM HALL SUPERVISOR us Case Samuel MD LAB CHARGE PERFORMABLES F inal Result Performing Organization Address City/[facility]/ZIP Co de Phone Number [facility] [employer] [address] [place] [address] [phone] * Bill Only- Sickle Solubility Bill (05/29/2024 11:23 AM HALL SUPERVISOR) Sickle Solubility Reflex Bill Billed 05/31/2024 2:46 PM HALL SUPERVISOR [facility] Comment: Performed By: [employer] [address] [place] [address] Head Machinist: Devon Healy MD, PhD CLIA Number: [id number] Blood VENOUS LINE / Unknown IVAD (Port) / Unknown 05/29/2024 11:23 AM HALL SUPERVISOR 05/29/2024 11:30 AM HALL SUPERVISOR Case Samuel MD LAB CHARGE PERFORMABLES F inal Result [facility] [address] [place] [address], [facility] [phone] * Genotype Red Blood Cell (05/29/2024 11:23 AM HALL SUPERVISOR) See Scanned Result GENOTYPE RED BLOOD CELL-Scanned 05/31/2024 10:16 AM HALL SUPERVISOR [facility] Blood VENOUS LINE / Unknown IVAD (Port) / Unknown 05/29/2024 11:23 AM HALL SUPERVISOR 05/29/2024 11:29 AM HALL SUPERVISOR Case Samuel MD LAB - BLOOD ORDERABLES Fi nal Result Performing Organization Address [facility]/[place] [address], [facility] [phone] * (ABNORMAL) HGB Eval Reflex to ELP or RBC Solubility (05/29/2024 11:23 AM HALL SUPERVISOR) Hemoglobin A 15.0(L) 95.0 - 97.9 % 05/31/2024 2:46 PM HALL SUPERVISOR [facility] Hemoglobin A2 3.0 2.0 - 3.5 % 05/31/2024 2:46 PM HALL SUPERVISOR [facility] Hemoglobin F 10.8(H) 0.0 - 2.1 % 05/31/2024 2:46 PM HALL SUPERVISOR [facility] Hemoglobin S 71.2(H) 0.0 - 0.0 % 05/31/2024 2:46 PM HALL SUPERVISOR [facility] Hemoglobin C 0.0 0.0 - 0.0 % 05/31/2024 2:46 PM HALL SUPERVISOR [facility] Hemoglobin E 0.0 0.0 - 0.0 % 05/31/2024 2:46 PM HALL SUPERVISOR [facility] Hemoglobin - Other 0.0 0.0 - 0.0 % 05/31/2024 2:46 PM HALL SUPERVISOR [facility] Hemoglobin Evaluation See Note 05/31/2024 2:46 PM HALL SUPERVISOR [facility] Comment: Impression: Hb S present Laboratory [...] by Alpha Globin (HBA1 and HBA2) Deletion/Duplication ([facility] test #5859486) should be considered. Hb S/beta-plus thalassemia is typically characterized by more Hb S than Hb A with the presence of microcytosis. If microcytosis is present and Hb S/beta-plus thalassemia is suspected, Beta Globin (HBB) Sequencing ([facility] test #1180457) is suggested. Hemoglobin analysis should be offered [...] developed and its performance characteristics determined by [employer]. It has not been cleared or approved by the U.S. Food and Drug Administration. This test was performed in a CLIA-certified laboratory and is intended for clinical purposes. Sickle Cell Solubility Reflex Positive(A) 05/31/2024 2:46 PM HALL SUPERVISOR [facility] Comment: INTERPRETIVE INFORMATION: Sickle Cell Solubility Reflex Not Performed: Solubility testing for Hemoglobin S not indicated. 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 Additional charges apply. Conf Previous: Positive for Hemoglobin S by HPLC. Solubility testing performed previously and not repeated with this submission. Hgb Capillary Electrophoresis Reflex Performed 05/31/2024 2:46 PM HALL SUPERVISOR [facility] Comment: INTERPRETIVE INFORMATION: Hgb Capillary Electrophoresis Reflex Not Performed: Confirmation by Capillary Electrophoresis not indicated. Performed: Results confirmed by Capillary Electrophoresis. Additional charges apply. Conf Previous: Capillary Electrophoresis confirmation performed as part of a previous submission. Confirmation not repeated with this submission. Performed By: [employer] [address] [place] [address] Head Machinist: Devon Healy MD, PhD CLIA Number: [id number] Blood VENOUS LINE / Unknown IVAD (Port) / Unknown 05/29/2024 11:23 AM HALL SUPERVISOR 05/29/2024 11:30 AM HALL SUPERVISOR Case Samuel MD LAB - BLOOD ORDERABLES Fi nal Result Performing Organization Address City/[facility]/ZIP Co de Phone Number [facility] [address] [place] [address], [facility] [phone] * (ABNORMAL) Ferritin (05/29/2024 11:23 AM HALL SUPERVISOR) Ferritin 1,559(H) 6 - 175 ng/mL 05/29/2024 12:43 PM HALL SUPERVISOR [facility] Blood VENOUS LINE / Unknown IVAD (Port) / Unknown 05/29/2024 11:23 AM HALL SUPERVISOR 05/29/2024 11:29 AM HALL SUPERVISOR us Case Samuel MD LAB - BLOOD ORDERABLES Fi nal Result [facility] Surgery [address] 1[address] [place] [address] * Urine Culture (05/29/2024 11:23 AM HALL SUPERVISOR) Culture <10,000 CFU/mL Mixture of Urogenital Vickie 05/30/2024 9:45 AM HALL SUPERVISOR [facility] Urine URINE SPECIMEN OBTAINED BY CLEAN CATCH PROCEDURE / Unknown Non-blood Collection / Unknown 05/29/2024 11:23 AM HALL SUPERVISOR 05/29/2024 11:41 AM HALL SUPERVISOR us Case Samuel MD LAB - MICRO GENERAL ORDER SYD Final Result [facility] Inf. Diseases Diag. Lab [address] [facility], [address] [place] [address], [facility] * IR Procedure Note (05/25/2024 2:54 PM HALL SUPERVISOR) Narrative Myron Michel MD - 05/25/2024 2:54 PM HALL SUPERVISOR Myron Michel MD 05/25/2024 2:55 PM [facility] Procedure: IR Procedure Note Date/Time: [...] the procedure a time out was called Tye Protocol: the Joint Commission Tye Protocol was followed Preparation: Patient was prepped and draped in usual sterile fashion ANESTHESIA Anesthesia: Local infiltration Local Anesthetic: Lidocaine 1% without epinephrine SEDATION Patient Sedated: Yes Sedation Type: Moderate (conscious) sedation Sedation: Fentanyl and midazolam Vital signs: Vital signs monitored during sedation See dictated procedure note for full details. Findings: Successful bilateral port placement apheresis on the right, 6 congolese smart port on the left Specimens: none Procedural Complications: None Condition: Stable Plan: 1 hour bedrest then okay to discharge PROCEDURE Describe Procedure: Successful bilateral port placement apheresis on the right, 6 congolese smart port on the left Patient Tolerance: Patient tolerated the procedure well with no immediate complications Length of time physician/provider present for 1:1 monitoring during sedation: 83-97 min us Myron Michel MD PROCEDURE/MINOR SURGICAL ORDERA BLES Final Result * IR Chest Port Placement > 5 Yrs of Age (05/25/2024 2:47 PM HALL SUPERVISOR) Only the most recent of2 resultswithin the time period is included. Anatomical Region Laterality Modality Chest Radio Fluoroscop y Impressions 05/25/2024 5:26 PM HALL SUPERVISOR IMPRESSION: Insertion of right-sided apheresis chest port, [...] mg Versed Sedation time: 97 minutes ATTENDING [id number] SEDATION TIME: less than 5 minutes. Access [...] placed: BD PowerFlow apheresis port Catheter size (Rwandan): 9.6 Lumens: Single-lumen Power injectable: Yes Catheter [...] JASWINDER COOPER MD Narrative 05/25/2024 5:26 PM HALL SUPERVISOR PROCEDURE: Venous port placement Procedural Personnel Attending physician(s): Jaswinder Cooper Fellow physician(s): Myrno Michel Resident physician(s): None Advanced practice provider(s): [...] mg Versed Sedation time: 97 minutes ATTENDING [id number] SEDATION TIME: less than 5 minutes. Access [...] placed: BD PowerFlow apheresis port Catheter size (Rwandan): 9.6 Lumens: Single-lumen Power injectable: Yes Catheter [...] JASWINDER COOPER MD us Case Samuel MD [facility] IR ORDERABLES Final R esult * HCG qualitative urine (05/25/2024 12:03 PM HALL SUPERVISOR) Only the most recent of2 resultswithin the time period is included. hCG Urine Qualitative Negative Negative JARET 05/25/2024 12:34 PM HALL SUPERVISOR [facility] Comment:This test is for scr eening purposes. Results should be interpreted along with the clinical picture. Confirmation testing is available if warranted by ordering [id number], HCG Quantitative . Urine MID-STREAM URINE SPECIMEN / Unknown Non-blood Collection / Unknown 05/25/2024 12:03 PM HALL SUPERVISOR 05/25/2024 12:19 PM HALL SUPERVISOR us Jaswinder Cooper MD LAB - URINE ORDERABLES Liss l Result [facility] [place] Core Lab [address] [facility], [address] [place] [address], [facility] * N terminal pro BNP outpatient (05/23/2024 9:02 PM HALL SUPERVISOR) N Terminal Pro BNP Outpatient 74 0 - 450 pg/mL 05/23/2024 9:39 PM HALL SUPERVISOR [facility] Comment: Reference range shown [...] Unknown Venipuncture / Unknown 05/23/2024 9:02 PM HALL SUPERVISOR 05/23/2024 9:10 PM HALL SUPERVISOR us Marilia Summers MD LAB - BLOOD ORDERABLES Final Result Performing Organization Address City/[facility]/ZIP Co de Phone Number [facility] [address] [place] [address], [facility] * (ABNORMAL) CK total (05/19/2024 3:05 AM HALL SUPERVISOR) CK 240(H) 26 - 192 U/L 05/19/2024 3:37 AM HALL SUPERVISOR [facility] Blood VENOUS LINE / Unknown Venipuncture / Unknown 05/19/2024 3:05 AM HALL SUPERVISOR 05/19/2024 3:18 AM HALL SUPERVISOR Marilia Summers MD LAB - BLOOD ORDERABLES Final Result [facility] [address] [place] [address], [facility] * (ABNORMAL) Vitamin D deficiency screening (04/28/2024 1:50 AM HALL SUPERVISOR) Vitamin D, Total (25-Hydroxy) 8(L) 20 - 50 ng/mL 05/01/2024 6:42 PM HALL SUPERVISOR [facility] Comment:severe deficiency Blood BLOOD SPECIMEN / Unknown Venipuncture / Unknown 04/28/2024 1:50 AM HALL SUPERVISOR 04/28/2024 1:53 AM HALL SUPERVISOR Narrative [facility] - 05/01/2024 6:42 PM HALL SUPERVISOR Season, race, dietary intake, and treatment affect the concentration of 42-vsaspul-Dyhapus D. Values may decrease during winter months and increase during summer months. Vitamin D determination is routinely performed by an immunoassay specific for 25 hydroxyvitamin D3. If an individual is on vitamin D2(ergocalciferol) supplementation, please specify 25 [place] vitamin D2 and D3 level determination by LCMSMS test VITD23. us Case Samuel MD LAB - BLOOD ORDERABLES Fi nal Result [facility] Core Lab [address] [facility], [address] [place] [phone] * CT Pelvis Bone wo Contrast (04/19/2024 3:22 AM HALL SUPERVISOR) Anatomical Region Laterality Modality Abdomen/Pelvis, SUBRAD CT MS K, [facility] CT ABDOMEN PELVIS, SUBRAD CT BODY, RAD CT Computed Tomography 04/19/2024 3:22 AM HALL SUPERVISOR Impressions 04/19/2024 4:06 AM HALL SUPERVISOR IMPRESSION: 1. Sclerosis involving the left femoral [...] right femoral head. Narrative 04/19/2024 4:06 AM HALL SUPERVISOR EXAM: CT PELVIS BONE WO CONTRAST LOCATION: [facility] DATE: 04/19/2024 INDICATION: Eval L hip [...] EXAM: CT PELVIS BONE WO CONTRAST LOCATION: [facility] DATE: 04/19/2024 INDICATION: Eval L hip [...] Extra Red Top Tube (04/08/2024 10:22 PM HALL SUPERVISOR) Hold Specimen [facility] 04/08/2024 11:31 PM HALL SUPERVISOR [facility] Blood STRUCTURE OF LEFT UPPER LIMB / Unknown Venipuncture / Unknown 04/08/2024 10:22 PM HALL SUPERVISOR 04/08/2024 10:30 PM HALL SUPERVISOR Deshawn Arredondo MD LAB - BLOOD ORDERABLES Liss l Result Performing Organization Address City/[facility]/ZIP Co de Phone Number [facility] [address] * Extra Blue Top Tube (04/08/2024 10:22 PM HALL SUPERVISOR) Hold Specimen [facility] 04/08/2024 11:31 PM HALL SUPERVISOR [facility] Blood STRUCTURE OF LEFT UPPER LIMB / Unknown Venipuncture / Unknown 04/08/2024 10:22 PM HALL SUPERVISOR 04/08/2024 10:30 PM HALL SUPERVISOR Deshawn Arredondo MD LAB - BLOOD ORDERABLES Liss l Result Performing Organization Address City/[facility]/ZIP Co de Phone Number [facility] [address] [place] [address], [facility] from Last 3 Months Insurance [place] [id number] [place] [id number] [place] Advance Directives For more information, please contact: [phone] * Full Code (Latest Code Status on [...] continue PREVIOUSLY ORDERED code status Care Teams B Operator Relationship Specialty Start Date End Date Veronica Joseph MD [address] [place] [address] PCP - General Family Medicine 06/18/24 Mor Ramsey Medical Student 04/03/24 Case Samuel MD [address] [place] [address] [address], [address] [place] [address] Assigned Pediatric Specialist Provider 05/18/24 Juhi Benson, RN Specialty [employer] Mining Machine [employer] Hematology & Oncology 05/29/24
--- OUTSIDE RECORDS SUMMARY | 2024-07-03 21:36 | XMS_ITS | Encounter Summary ---
Author Organization [facility] Address [address] [place] [address] Care Team Providers Care Cut Pressman Name Role Phone RoxyElvirac Unavailable Unavailable Case Samuel MD Unavailable [phone] Juhi Benson RN Unavailable Unavailable Veronica Joseph MD Primary Care Provider [phone] Reason for Visit * Reason Comments Sickle Cell Pain Crisis Pt reports pain in her back and b/l lower extremities. Encounter Details Date Type Department Care Team (Late st Contact Info) Description 06/24/2024 9:28 AM COMPENSATION ADVISOR - 06/24/2024 1:05 PM COMPENSATION ADVISOR Emergency [facility] Emergency Department [address] [place] [phone] Richar Mahajan MD [address] [place] [address] [phone] Sickle cell disease with crisis (H) Discharge [...] in an overnight fpc, or couch-surfing.) Yes 06/20/2024 Are you worried [...] on file Legal Sex Female 8:25 AM COMPENSATION ADVISOR Gender Identity Not on file Sexual Orientation Not on file documented as of this encounter Last Filed Vital Signs Vital Sign Reading Time Taken Comments Blood Pressure 111/67 06/24/2024 11:56 AM COMPENSATION ADVISOR Pulse 101 06/24/2024 12:11 PM COMPENSATION ADVISOR Temperature 36.9 C (98.4 F) 06/24/2024 9:26 AM COMPENSATION ADVISOR Respiratory Rate 16 06/24/2024 9:26 AM COMPENSATION ADVISOR Oxygen Saturation 100% 06/24/2024 12:11 PM COMPENSATION ADVISOR Inhaled Oxygen Concentration - - Weight 52.2 kg (115 lb) 06/24/2024 9:26 AM COMPENSATION ADVISOR Height 154.9 cm (5' 1) 06/24/2024 9:26 AM COMPENSATION ADVISOR Body Mass Index 21.73 06/24/2024 9:26 AM COMPENSATION ADVISOR documented in this encounter Discharge Instructions * Discharge Instructions* Richar Mahajan MD - 06/24/2024 12:57 PM COMPENSATION ADVISOR Home. Continue home care. Follow up with [...] Negative Ketones Urine Negative Negative mg/dL Specific [place] Urine 1.009 1.003 - 1.035 Blood Urine [...] Status --------- ------ CBC with platelets and d...[[id number]] Abnormal Final result Please view results for these tests on the individual orders. ENSATION ADVISOR * Attachments The following attachments cannot be sent through Care Everywhere. * Sickle Cell Crisis (Czech) documented in this encounter Medications at Time [...] 05/01/2024 naloxone (NARCAN) 4 MG/0.1ML nasal spray [place] 1 spray (4 mg) into one nostril [...] extremities. Triage Assessment (Adult) Row Name 06/24/24 1893 Triage Assessment Airway WDL WDL Respiratory WDL Respiratory WDL WDL Skin Circulation/Temperature WDL Skin Circulation/Temperature WDL WDL Cardiac WDL Cardiac WDL WDL Peripheral/Neurovascular WDL Peripheral Neurovascular WDL WDL Cognitive/Neuro/Behavioral WDL Cognitive/Neuro/Behavioral WDL WDL ENSATION ADVISOR * Richar Mahajan MD - 06/24/2024 9:16 AM CST Images from the original note were not included. [facility] ([facility]) 06/24/24 ED PROVIDER NOTE History Chief Complaint [...] Course, Procedures, & Data Records reviewed in [facility] as noted refer to HPI also [...] Negative Ketones Urine Negative Negative mg/dL Specific [place] Urine 1.009 1.003 - 1.035 Blood Urine [...] Status --------- ------ CBC with platelets and d...[[id number]] Abnormal Final result Please view results for [...] Bilirubin Urine Negative Ketones Urine Negative Specific [place] Urine 1.009 Blood Urine Negative pH Urine [...] am serving as a trained medical records auditor to document services personally performed by Richar Mahajan MD based on the provider's statements to me on June 24, 2024. This document has been checked and approved by the attending provider. I, Richar Mahajan MD, was physically present and have reviewed and verified the accuracy of thisnote documented by Thelma Haines, medical records auditor. Richar Mahajan MD [facility] 06/24/2024 This note was created at least in part by the use of [employer] voice dictation system. Inadvertent typographical errors may still exist. Richar Mahajan MD. Patient evaluated in the emergency department during the COVID-19 pandemic period. Careful attention to patients safety was addressed throughout the evaluation. Evaluation and treatment management was initiated with disposition made efficiently and appropriate as possible to minimize any risk of potential exposure to patient during this evaluation. Richar Mahajan MD 06/24/242108 ENSATION ADVISOR documented in this encounter Plan of Treatment Upcoming Encounters Date Type Department Care Team (Late st Contact Info) Description 07/04/2024 9:00 AM CDT Lab [facility] Cancer [address] [phone] Case Samuel MD [address] [place] [address], [address] [place] [id number] 07/06/2024 8:00 AM CDT Appointment [facility] [address] [phone] Case Samuel MD [address] [place] [address], [address] [place], [place] [address] 07/10/2024 11:30 AM CDT Oncology Visit [address] [phone] Case Samuel MD [address] [place], [place] [address], ROOM [address] [id number] documented as of this encounter Goals Goal Patient Goal Type Associated Problems Recent Progress Patient-Stated? Author Pain Management General On track( 025 12:40 PM COMPENSATION ADVISOR) Yes Juhi Benson, SOFIA Note: Goal Statement: [...] REFLEX TO CULTURE STAT 06/24/2024 10:15 AM COMPENSATION ADVISOR CBC WITH PLATELETS AND DIFFERENTIAL STAT 06/24/2024 10:11 AM COMPENSATION ADVISOR CBC WITH PLATELETS & DIFFERENTIAL STAT 06/24/2024 10:11 AM COMPENSATION ADVISOR RETICULOCYTE COUNT STAT 06/24/2024 10 :11 AM COMPENSATION ADVISOR INR STAT 06/24/2024 10:11 AM COMPENSATION ADVISOR PARTIAL THROMBOPLASTIN TIME STAT 06/24/2024 10:11 AM COMPENSATION ADVISOR MAGNESIUM STAT 06/24/2024 10:11 AM COMPENSATION ADVISOR HCG QUALITATIVE STAT 06/24/2024 10:11 AM COMPENSATION ADVISOR COMPREHENSIVE METABOLIC PANEL STAT 06/24/2024 10:11 AM COMPENSATION ADVISOR documented in this encounter Results * (ABNORMAL) UA with Microscopic reflex to Culture (06/24/2024 10:15 AM COMPENSATION ADVISOR) Color Urine Light Yellow Colorless, Straw, Light Yellow, Yellow 06/24/2024 10:25 AM COMPENSATION ADVISOR [facility] Appearance Urine Clear Clear 06/25/19 10:25 AM COMPENSATION ADVISOR [facility] Glucose Urine Negative Negative mg/dL 06/24/2024 10:25 AM COMPENSATION ADVISOR [facility] Bilirubin Urine Negative Negative 10:25 AM COMPENSATION ADVISOR [facility] Ketones Urine Negative Negative mg/dL 06/24/2024 10:25 AM COMPENSATION ADVISOR [facility] Specific [place] Urine 1.009 1.003 - 1.035 06/24/2024 10:25 AM COMPENSATION ADVISOR [facility] Blood Urine Negative Negative 06/24/2024 10:25 AM COMPENSATION ADVISOR [facility] pH Urine 7.5(H) 5.0 - 7.0 06/24/2024 10:25 AM COMPENSATION ADVISOR [facility] Protein Albumin Urine Negative Negative mg/dL 06/24/2024 10:25 AM COMPENSATION ADVISOR [facility] Urobilinogen Urine Normal Normal, 2.0 mg/dL 06/24/2024 10:25 AM COMPENSATION ADVISOR [facility] Nitrite Urine Negative Negative 06/24/2024 10:25 AM COMPENSATION ADVISOR [facility] Leukocyte Esterase Urine Negative Negative 06/24/2024 10:25 AM COMPENSATION ADVISOR [facility] RBC Urine <1 <=2 /HPF 06/24/2024 10:25 AM COMPENSATION ADVISOR [facility] WBC Urine <1 <=5 /HPF 06/24/2024 10:25 AM COMPENSATION ADVISOR [facility] Squamous Epithelials Urine 11(H) <=1 /HPF 06/24/2024 10:25 AM COMPENSATION ADVISOR [facility] Hyaline Casts Urine 1 <=2 /LPF 06/24/2024 10:25 AM COMPENSATION ADVISOR [facility] Urine MID-STREAM URINE SPECIMEN / Unknown Non-blood Collection / Unknown 06/24/2024 10:15 AM COMPENSATION ADVISOR 06/24/2024 10:20 AM COMPENSATION ADVISOR Narrative [facility] - 06/24/2024 10:25 AM COMPENSATION ADVISOR Urine Culture not indicated us Richar Mahajan MD LAB - URINE ORDERABLES Liss l Result [facility] Lab [address] [facility], [address] [place] [phone] * (ABNORMAL) CBC with platelets and differential (06/24/2024 10:11 AM COMPENSATION ADVISOR) WBC Count 7.8 4.0 - 11.0 10e3/uL 06/24/2024 10:28 AM COMPENSATION ADVISOR [facility] RBC Count 2.49(L) 3.80 - 5.20 10e6/uL 06/24/2024 10:28 AM COMPENSATION ADVISOR [facility] Hemoglobin 7.9(L) 11.7 - 15.7 g/dL 06/24/2024 10:28 AM COMPENSATION ADVISOR [facility] Hematocrit 24.8(L) 35.0 - 47.0 % 06/24/2024 10:28 AM COMPENSATION ADVISOR [facility] MCV 100 78 - 100 fL 06/24/2024 10:28 AM COMPENSATION ADVISOR [facility] MCH 31.7 26.5 - 33.0 pg 06/24/2024 10:28 AM COMPENSATION ADVISOR [facility] MCHC 31.9 31.5 - 36.5 g/dL 06/24/2024 10:28 AM COMPENSATION ADVISOR [facility] RDW 19.0(H) 10.0 - 15.0 % 06/24/2024 10:28 AM COMPENSATION ADVISOR [facility] Platelet Count 482(H) 150 - 450 10e3/uL 06/24/2024 10:28 AM COMPENSATION ADVISOR [facility] % Neutrophils 61 % 06/24/2024 10:28 AM COMPENSATION ADVISOR [facility] % Lymphocytes 26 % 06/24/2024 10:28 AM COMPENSATION ADVISOR [facility] % Monocytes 9 % 06/24/2024 10:28 AM COMPENSATION ADVISOR [facility] % Eosinophils 1 % 06/24/2024 10:28 AM COMPENSATION ADVISOR [facility] % Basophils 2 % 06/24/2024 10:28 AM COMPENSATION ADVISOR [facility] % Immature Granulocytes 1 % 06/24/2024 10:28 AM COMPENSATION ADVISOR [facility] NRBCs per 100 WBC 5(H) <1 /100 025 10:28 AM COMPENSATION ADVISOR [facility] Absolute Neutrophils 4.8 1.6 - 8.3 10e3/uL 06/24/2024 10:28 AM COMPENSATION ADVISOR [facility] Absolute Lymphocytes 2.1 0.8 - 5.3 10e3/uL 06/24/2024 10:28 AM COMPENSATION ADVISOR [facility] Absolute Monocytes 0.7 0.0 - 1.3 10e3/uL 06/24/2024 10:28 AM COMPENSATION ADVISOR [facility] Absolute Eosinophils 0.1 0.0 - 0.7 10e3/uL 06/24/2024 10:28 AM COMPENSATION ADVISOR [facility] Absolute Basophils 0.1 0.0 - 0.2 10e3/uL 06/24/2024 10:28 AM COMPENSATION ADVISOR [facility] Absolute Immature Granulocytes 0.1 <=0.4 10e3/uL 06/24/2024 10:28 AM COMPENSATION ADVISOR [facility] Absolute NRBCs 0.4 10e3/uL 06/24/2024 10:28 AM COMPENSATION ADVISOR [facility] Blood BLOOD SPECIMEN / Unknown Venipuncture / Unknown 06/24/2024 10:11 AM COMPENSATION ADVISOR 06/24/2024 10:22 AM COMPENSATION ADVISOR Richar Mahajan MD LAB - BLOOD ORDERABLES Liss l Result [facility] [address] [facility], [address] * (ABNORMAL) Reticulocyte count (06/24/2024 10:11 AM COMPENSATION ADVISOR) % Reticulocyte 11.2(H) 0.5 - 2.0 % 06/24/2024 10:28 AM COMPENSATION ADVISOR [facility] Absolute Reticulocyte 0.280(H) 0.025 - 0.095 10e6/uL 06/24/2024 10:28 AM COMPENSATION ADVISOR [facility] Blood BLOOD SPECIMEN / Unknown Venipuncture / Unknown 06/24/2024 10:11 AM COMPENSATION ADVISOR 06/24/2024 10:22 AM COMPENSATION ADVISOR Richar Mahajan MD LAB - BLOOD ORDERABLES Liss l Result Performing Organization Address City/[facility] Co de Phone Number [facility] Core Lab [address] [facility], [address] [place] [address] * HCG qualitative Blood (06/24/2024 10:11 AM COMPENSATION ADVISOR) Pathologist [facility] hCG Serum Qualitative Negative Negative JARET 06/24/2024 10:33 AM COMPENSATION ADVISOR [facility] Comment:This test is for scr eening purposes. Results should be interpreted along with the clinical picture. Confirmation testing is available if warranted by ordering [id number], HCG Quantitative . Blood BLOOD SPECIMEN / Unknown Venipuncture / Unknown 06/24/2024 10:11 AM COMPENSATION ADVISOR 06/24/2024 10:20 AM COMPENSATION ADVISOR Richar Mahajan MD LAB - BLOOD ORDERABLES Liss l Result [facility] Lab [address] [facility] * Magnesium (06/24/2024 10:11 AM COMPENSATION ADVISOR) Pathologist [facility] Magnesium 2.1 1.7 - 2.3 mg/dL 06/24/2024 10:51 AM COMPENSATION ADVISOR [facility] Blood BLOOD SPECIMEN / Unknown Venipuncture / Unknown 06/24/2024 10:11 AM COMPENSATION ADVISOR 06/24/2024 10:21 AM COMPENSATION ADVISOR us Richar Mahajan MD LAB - BLOOD ORDERABLES Liss l Result [facility] Core Lab [address] [facility] * (ABNORMAL) Comprehensive metabolic panel (06/24/2024 10:11 AM COMPENSATION ADVISOR) [facility] Sodium 138 135 - 145 mmol/L 06/24/2024 10:51 AM COMPENSATION ADVISOR [facility] Potassium 4.3 3.4 - 5.3 mmol/L 06/24/2024 10:51 AM COMPENSATION ADVISOR [facility] Carbon Dioxide (CO2) 20(L) 22 - 29 mmol/L 06/24/2024 10:51 AM COMPENSATION ADVISOR [facility] Anion Gap 10 7 - 15 mmol/L 06/24/2024 10:51 AM COMPENSATION ADVISOR [facility] Urea Nitrogen 9.9 6.0 - 20.0 mg/dL 06/24/2024 10:51 AM COMPENSATION ADVISOR [facility] Creatinine 0.62 0.51 - 0.95 mg/dL 06/24/2024 10:51 AM COMPENSATION ADVISOR [facility] GFR Estimate >90 >60 mL/min/1.7 3m2 06/24/2024 10:51 AM COMPENSATION ADVISOR [facility] Comment:eGFR calculated us2020 CKD-EPI equation. Calcium 8.7(L) 8.8 - 10.4 mg/dL 06/24/2024 10:51 AM COMPENSATION ADVISOR [facility] Chloride 108(H) 98 - 107 mmol/L 06/24/2024 10:51 AM COMPENSATION ADVISOR [facility] Glucose 98 70 - 99 mg/dL 06/24/2024 10:51 AM COMPENSATION ADVISOR [facility] Alkaline Phosphatase 119 40 - 150 U/L 06/24/2024 10:51 AM COMPENSATION ADVISOR [facility] AST 57(H) 0 - 45 U/L 06/24/2024 10:51 AM COMPENSATION ADVISOR [facility] ALT 53(H) 0 - 50 U/L 06/24/2024 10:51 AM COMPENSATION ADVISOR [facility] Protein Total 7.4 6.4 - 8.3 g/dL 06/24/2024 10:51 AM COMPENSATION ADVISOR [facility] Albumin 4.0 3.5 - 5.2 g/dL 06/24/2024 10:51 AM COMPENSATION ADVISOR [facility] Bilirubin Total 1.1 <=1.2 mg/dL 06/24/2024 10:51 AM COMPENSATION ADVISOR [facility] Blood BLOOD SPECIMEN / Unknown Venipuncture / Unknown 06/24/2024 10:11 AM COMPENSATION ADVISOR 06/24/2024 10:21 AM COMPENSATION ADVISOR Richar Mahajan MD LAB - BLOOD ORDERABLES Liss l Result [facility] Core Lab [address] [facility] * (ABNORMAL) INR (06/24/2024 10:11 AM COMPENSATION ADVISOR) [facility] INR 1.45(H) 0.85 - 1.15 06/24/2024 10:54 AM COMPENSATION ADVISOR [facility] Blood BLOOD SPECIMEN / Unknown Venipuncture / Unknown 06/24/2024 10:11 AM COMPENSATION ADVISOR 06/24/2024 10:21 AM COMPENSATION ADVISOR Richar Mahajan MD LAB - BLOOD ORDERABLES Liss l Result [facility] Lab [address] [facility] * Partial thromboplastin time (06/24/2024 10:11 AM COMPENSATION ADVISOR) Pathologist [facility] aPTT 32 22 - 38 Seconds 06/24/2024 10:55 AM COMPENSATION ADVISOR [facility] Blood BLOOD SPECIMEN / Unknown Venipuncture / Unknown 06/24/2024 10:11 AM COMPENSATION ADVISOR 06/24/2024 10:21 AM COMPENSATION ADVISOR Richar Mahajan MD LAB - BLOOD ORDERABLES Liss bola Result [facility] Lab [address] [facility], [address] [place] [phone] documented in this [...] For 1 dose $Given 06/24/2024 10:20 AM COMPENSATION ADVISOR 50 mg hydromorphone (DILAUDID) injection 2 mg 2 mg, Intravenous, EVERY 1 HOUR PRN, severe pain, Starting on 06/24/24 at 0933, For 3 doses $Given 06/24/2024 12:41 PM COMPENSATION ADVISOR 2 mg $Given 06/24/2024 11:21 AM COMPENSATION ADVISOR 2 mg $Given 06/24/2024 10:19 AM COMPENSATION ADVISOR 2 mg lactated ringers BOLUS 1,000 mL Intravenous, 1,000 mL, ONCE, at 500 mL/hr, Administer over 2 Hours, On 06/24/24 at 0935, For 1 dose $New Bag 06/24/2024 10:20 AM COMPENSATION ADVISOR 1,000 mLs 500 mL/hr lidocaine (LMX4) cream [...] For 1 dose $Given 06/24/2024 10:19 AM COMPENSATION ADVISOR 8 mg sodium chloride (PF) 0.9% PF flush 3 mL 3 mL, Intracatheter, EVERY 8 HOURS, First dose on 06/24/24 at 0935, to lock peripheral IV dormant line $Given 06/24/2024 10:14 AM COMPENSATION ADVISOR 3 mLs sodium chloride (PF) 0.9% PF flush 3 mL 3 mL, Intracatheter, EVERY 1 MIN PRN, line flush, other, to ensure patency or to lock dormant line, Starting on 06/24/24 at 0930 documented in this encounter Active and Recently Administered Medications Times are shown in COMPENSATION ADVISOR. Scheduled Medication Order 06/22/2024 06/23/2024 06/24/2024 diphenhydrAMINE [...] 0930 documented in this encounter Care Teams Cut Pressman Relationship Specialty Start Date End Date Veronica Joseph MD [address] [place] [address] PCP - General Family Medicine 06/18/24 Mor Ramsey Medical Student 04/03/24 Case Samuel MD [address] [place] [address], [address] [place] [address] Assigned Pediatric Specialist Provider 05/18/24 Juhi Benson, RN Specialty Senior Applications Architect Hematology & Oncology 05/29/24 documented as of this encounter
--- OUTSIDE RECORDS SUMMARY | 2024-07-03 21:36 | XMS_ITS | Encounter Summary ---
Author Organization [facility] Address [address] [place] [address]. [place] [address] Care Team Providers Care Fisher Reef Net Name Role Phone Roxy Mor Unavailable Unavailable Case Samuel MD Unavailable [phone] Juhi Benson RN Unavailable Unavailable Veronica Joseph MD Primary Care Provider [phone] Encounter Details Date Type Department Care Team [...] on file Legal Sex Female 8:25 AM MERCHANDISING INTERN Gender Identity Not on file Sexual Orientation Not on file documented as of this encounter Plan of Treatment Upcoming Encounters Date Type Department Care Team (Late st Contact Info) Description 07/04/2024 9:[address] [facility] Cancer [address] [phone] Case Samuel MD [address] [place], [place] [address], RO[address] [phone] 07/06/2024 8:00 AM CDT Appointment [facility] Advanced Treatment [address] [phone] Case Samuel MD [address] [place], [place] [address], RO[address] [address] 07/10/2024 11:30 AM CDT Oncology Visit [facility] Cancer [address] [phone] Case Samuel MD [address] [place], [place] [address], RO[address] [address] documented as of this encounter Goals Goal Patient Goal Type Associated Problems Recent Progress Patient-Stated? Author Pain Management General On track( 025 12:40 PM MERCHANDISING INTERN) Yes Juhi Benson, RN Note: Goal Statement: [...] on filedocumented in this encounter Care Teams Fisher Reef Net Relationship Specialty Start Date End Date Veronica Joseph MD [address] [place] [address] PCP - General Family Medicine 06/18/24 Mor Ramsey Medical Student 04/03/24 Case Samuel MD [address] [place] [address], [address] [place] [address] Assigned Pediatric Specialist Provider 05/18/24 Juhi Benson, RN Specialty Electrical Fitter Hematology & Oncology 05/29/24 documented as of this encounter
[2024-07-03] MEDS: diphenhydrAMINE 50 MG/ML inj 25 MG IVP (21:40)
[2024-07-03] MEDS: HYDROmorphone 0.5 mg/0.5 ml inj 1 MG IVP (21:40)
[2024-07-03] MEDS: LACTATED RINGERS 1000 ML 1,000 ML IV (21:41)
[2024-07-03 22:35] VITALS: BP 117/77; PULSE 89; O2SAT 98
[2024-07-03] MEDS: HYDROmorphone 0.5 mg/0.5 ml inj IVP (22:36)
[2024-07-03] MEDS: HEPARIN 500 UNIT/5 ML SYRINGE IVF (22:36)
== END 2024-07-03 22:37 | disposition home or self-care (01) ==
PROVIDERS: Emergency Provider Emergency Medicine Emergency Medical Services
DX: D57.1 Sickle-cell disease without crisis (principal)
CPT/HCPCS: 96374; 96375; 99284; J1171; J1200; J1642; J7120

== ENCOUNTER 2024-07-28 20:42 | Emergency (ER) | payer BC, SELFPAY ==
--- OUTSIDE RECORDS SUMMARY | 2024-07-28 20:44 | XMS_ITS | Clinical Summary ---
Author Organization [facility] Address [address] [place] [id number] Care Team Providers Care Medical Claims Processor Name Role Phone Veronica Joseph MD Primary Care Provider [phone] Allergies Active Allergy Reactions Criticality Noted Date [...] ickle cell pain crisis (HC) Inhale 1 [place] into affected nostril(s) each time if needed [...] for Pain. 10 Tablet 5 2:58 PM STAFF REPORTER 04/27/19 25 Active folic acid 1 mg tablet Take 1 tablet (1 mg) by mouth daily. 30 Tablet 5 1:41 PM STAFF REPORTER 05/01/19 25 Active hydroxyurea (HYDREA) 500 mg capsule Take 2 capsules (1,000 mg) by mouth 2 times daily 120 Capsule 05/01/19 25 Active multivitamin with folic acid 0.4 mg (Thera) Take 1 tablet by mouth daily. 30 Tablet 11 5 10:39 AM STAFF REPORTER 05/01/19 25 Active amoxicillin-clavul anate (AUGMENTIN) 875-125 mg tablet Take 1 tablet by mouth 2 times daily for 7 days. 14 Tablet 5 10:39 AM STAFF REPORTER 05/08/19 25 Active doxycycline hyclate 100 mg capsule Take 1 capsule (100 mg) by mouth 2 times daily for 7 days. 14 Capsule 5 10:39 AM STAFF REPORTER 05/08/19 25 Active HYDROmorphone 4 mg tablet Take 1 Tablet (4 mg) by mouth every 6 hours if needed for severe pain. 30 Tablet 5 1:04 PM STAFF REPORTER 05/09/19 25 Active FLUoxetine (PROZAC) 10 mg capsule Take 1 capsule (10 mg) by mouth daily. 40 Capsule 1 5 3:26 PM STAFF REPORTER 05/29/19 25 Active naloxone (NARCAN) 4 mg/actuation nasal spray [place] 1 spray (4 mg) into one [...] times daily. 178 Tablet 5 3:59 PM STAFF REPORTER 06/30/19 25 025 Active HYDROmorphone 2 mg tablet Take 2 tablets by mouth every 6 hours as needed for severe pain. 45 Tablet 5 12:45 PM CDT 07/05/19 25 Active FLUoxetine 20 mg capsule Take 1 capsule (20 mg) by mouth daily. 30 Capsule 1 5 5:36 PM CDT 07/18/19 25 Active HYDROmorphone 2 mg tablet Take 1-2 tablets (2-4 mg) by mouth every 6 hours as needed for severe pain. 45 Tablet 5 2:29 PM CDT 07/19/19 25 Active HYDROmorphone 2 mg tablet Take 2 tablets (4 mg) by mouth every 6 hours as needed for severe pain. 40 Tablet 5 11:11 AM STAFF REPORTER 06/15/19 25 025 Discontin ued(Reord er (E-cancel not sent)) HYDROmorphone 2 mg tablet Take 2 tablets (4 mg) by mouth every 6 hours as needed for severe pain. 40 Tablet 5 3:59 PM STAFF REPORTER 06/30/19 25 025 Discontin ued(Reord er (E-cancel not sent)) HYDROmorphone 2 mg tablet Take 1-2 tablets (2-4 mg) by mouth every 6 hours as needed for severe pain. 45 Tablet 5 9:40 AM CDT 07/12/19 25 025 Discontin ued(Reord er (E-cancel not [...] Department Care Team Description 06/11/2024 1:08 AM STAFF REPORTER - 06/11/2024 3:[address] [address] Juan Kunz, Sickle cell pain crisis (HC) (Primary Dx) Discharge Disposition: Home Self Care 06/11/2024 Travel 06/06/2024 Refill [facility] [address] [place] [address] Veronica Joseph MD Refill Request 06/03/2024 11:37 AM STAFF REPORTER - 06/03/2024 2:[address] [address] Ben Swan MD Viral syndrome (Primary Dx) Discharge Disposition: Home Self Care 06/03/2024 Travel 05/29/2024 1:53 PM STAFF REPORTER - 05/29/2024 2:[address] [address] Ana Pacheco MD Sickle cell pain crisis (HC) (Primary Dx) Discharge Disposition: Home Self Care 05/29/2024 Travel 05/21/2024 10:35 AM STAFF REPORTER - 05/21/2024 2:[address] [address] Juliana Gil, Sickle cell disease with crisis (HC) (Primary Dx); Diffuse pain Discharge Disposition: Home Self Care 05/21/2024 Travel 05/18/2024 2:12 AM STAFF REPORTER - 05/18/2024 4:[address] [address] Onesimo Gaviria MD Sickle cell pain crisis (HC) (Primary Dx) Discharge Disposition: Home Self Care 05/18/2024 Travel 05/17/2024 Telephone [facility] [address] [place] [address] Veronica Joseph MD Questions (HEALTH STATUS ) 05/10/2024 Telephone [facility] [address] [place] [address] Veronica Joseph MD Follow Up 05/07/2024 5:53 PM STAFF REPORTER - 05/07/2024 8:[address] [address] Caryn Downs MD Sickle cell anemia with pain (HC) (Primary Dx); RUQ abdominal pain Discharge Disposition: Home Self Care 05/07/2024 Travel 05/03/2024 10:59 PM STAFF REPORTER - 05/04/2024 2:[address] [address] Anika Mccracken MD Discharge Disposition: Home Self Care 05/03/2024 Travel 05/02/2024 10:15 AM STAFF REPORTER - 05/02/2024 12:[address] [address] Juan Kunz DO Sickle cell pain crisis (HC) (Primary Dx) Discharge Disposition: Home Self Care 05/02/2024 Travel from Last 3 Months Immunizations Immunization [...] on file Legal Sex Female 8:18 PM STAFF REPORTER Gender Identity Not on file Sexual Orientation Not on file Obstetrics History Last Filed Vital Signs Vital Sign Reading Time Taken Comments Blood Pressure 121/73 06/11/2024 3:30 AM STAFF REPORTER Pulse 93 06/11/2024 3:30 AM STAFF REPORTER Temperature 36.6 C (97.9 F) 06/11/2024 1:12 AM STAFF REPORTER Respiratory Rate 18 06/11/2024 3:00 AM STAFF REPORTER Oxygen Saturation 95% 06/11/2024 3:30 AM STAFF REPORTER Inhaled Oxygen Concentration - - Weight 51.7 kg (114 lb) 06/11/2024 1:10 AM STAFF REPORTER Height 154.9 cm (5' 1) 06/11/2024 1:10 AM STAFF REPORTER Body Mass Index 21.54 06/11/2024 1:10 AM STAFF REPORTER Plan of Treatment Health Maintenance Due Date Last Done Comments HIV for age 15-65 2009 Hepatitis C screening for ag e 18-79 2012 Pneumococcal series for age 6-49 (1 of 2 - PCV) 2013 Tetanus booster 01/18/2017 01/18/2007 COVID-19 vaccine series (2023- season) 2023 03/26/2023, 05/21/2021, 02/27/2021, Additional history exists Influenza Vaccine (Season Ended) 2024 03/03/2023, 01/15/2023, 03/14/2020, Additional history exists Pap test for age 21-65 01/06/2025 2 (Verified in Care Everywhere or Patient Record) BMI (ht and wt on same day) for age 18+ 04/11/2025 04/11/2024 Depression screening for age 12+ 04/11/2025 04/11/20 24 Tdap Completed 01/18/2007 Procedures Procedure Name Priority Date/Time Associated Diagnosis Comments CBC WITH AUTO DIFFERENTIAL STAT 06/03/2024 12:51 PM STAFF REPORTER INFLUENZA A/B PCR Today 06/03/2024 12: 51 PM STAFF REPORTER COVID-19 MOLECULAR Today 06/03/2024 12 :51 PM STAFF REPORTER BASIC METABOLIC PANEL STAT 06/03/2024 12:51 PM STAFF REPORTER CBC WITH AUTO DIFFERENTIAL STAT 06/03/2024 12:51 PM STAFF REPORTER XR CHEST 2 VIEWS PA AND LATERAL STAT 06/03/2024 12:34 PM STAFF REPORTER EKG 12 LEAD STAT 06/03/2024 11:48 AM STAFF REPORTER HEMOGLOBIN STAT 05/29/2024 2:23 PM STAFF REPORTER EKG 12 LEAD STAT 05/29/2024 2:03 PM STAFF REPORTER EKG 12 LEAD STAT 05/21/2024 10:19 AM STAFF REPORTER RED CELL MORPHOLOGY STAT 05/07/2024 6 :20 PM STAFF REPORTER PLATELET ESTIMATE STAT 05/07/2024 6:2 0 PM STAFF REPORTER RETICULOCYTES STAT 05/07/2024 6:20 PM STAFF REPORTER LIPASE STAT 05/07/2024 6:20 PM STAFF REPORTER HEPATIC FUNCTION PANEL STAT 6:20 PM STAFF REPORTER BASIC METABOLIC PANEL STAT 05/07/2024 6:20 PM STAFF REPORTER CBC W PLT NO DIFF STAT 05/07/2024 6:[address] CHEST PE STUDY STAT 05/04/2024 1:4 6 AM STAFF REPORTER RETICULOCYTES STAT 05/04/2024 12:24 AM STAFF REPORTER URINE Today 05/04/2024 12:07 AM STAFF REPORTER UA W/ SEDIMENT EXAM REFLEXED PER CRITERIA Today 05/04/2024 12:07 AM STAFF REPORTER CWS PATH REVIEW HEMATOLOGY STAT 05/03/2024 11:52 PM STAFF REPORTER RED CELL MORPHOLOGY STAT 05/03/2024 1 1:52 PM STAFF REPORTER PLATELET ESTIMATE STAT 05/03/2024 11: 52 PM STAFF REPORTER MANUAL DIFFERENTIAL STAT 05/03/2024 1 1:52 PM STAFF REPORTER CBC WITH AUTO DIFFERENTIAL STAT 05/03/2024 11:52 PM STAFF REPORTER D-DIMER,QUANTITATIVE STAT 05/03/2024 11:52 PM STAFF REPORTER HEPATIC FUNCTION PANEL STAT 11:52 PM STAFF REPORTER BASIC METABOLIC PANEL STAT 05/03/2024 11:52 PM STAFF REPORTER CBC WITH AUTO DIFFERENTIAL STAT 05/03/2024 11:52 PM STAFF REPORTER EKG 12 LEAD STAT 05/03/2024 11:48 PM STAFF REPORTER INFLUENZA A/B PCR Today 05/02/2024 10: 20 AM STAFF REPORTER COVID-19 MOLECULAR Today 05/02/2024 10 :20 AM STAFF REPORTER from Last 3 Months Results * COVID-19 MOLECULAR (06/03/2024 12:51 PM STAFF REPORTER) Only the most recent of2 resultswithin the time period is included. Pathologist [address] MOLECULAR Not detected Not detected 06/03/2024 1:18 PM STAFF REPORTER [facility] TEST[facility] 06/03/2024 1:18 PM STAFF REPORTER [facility] Comment:Specimen submitted t o [facility] for testing. Other SPECIMEN FROM NASOPHARYNGEAL STRUCTURE / Unknown Non-Blood / Unknown 06/03/2024 12:51 PM STAFF REPORTER 06/03/2024 12:54 PM STAFF REPORTER us Ben Swan MD MICROBIOLOGY Final Res ult [facility] [place] [address], * INFLUENZA A/B PCR (06/03/2024 12:51 PM STAFF REPORTER) Only the most recent of2 resultswithin the time period is included. Pathologist [facility] INFLUENZA A PCR NOT Detected 06/03/2024 1:18 PM STAFF REPORTER [facility] INFLUENZA B PCR NOT Detected 06/03/2024 1:18 PM STAFF REPORTER [facility] Other SPECIMEN FROM NASOPHARYNGEAL STRUCTURE / Unknown Non-Blood / Unknown 06/03/2024 12:51 PM STAFF REPORTER 06/03/2024 12:54 PM STAFF REPORTER us Ben Swan MD MICROBIOLOGY Final Res ult [facility] [address] [place] [address], [place] [phone] * (ABNORMAL) CBC WITH AUTO DIFFERENTIAL (06/03/2024 12:51 PM STAFF REPORTER) Only the most recent of2 resultswithin the time period is included. WHITE BLOOD COUNT 11.0 4.5 - 11.0 thou/cu mm 06/03/2024 1:05 PM STAFF REPORTER [facility] RED BLOOD COUNT 2.94(L) 4.00 - 5.20 mil/cu mm 06/03/2024 1:05 PM STAFF REPORTER [facility] HEMOGLOBIN 9.3(L) 12.0 - 16.0 g/dL 06/03/2024 1:05 PM STAFF REPORTER [facility] HEMATOCRIT 26.9(L) 33.0 - 51.0 % 06/03/2024 1:05 PM STAFF REPORTER [facility] MCV 92 80 - 100 fL 06/03/2024 1:05 PM STAFF REPORTER [facility] MCH 31.6 26.0 - 34.0 pg 06/03/2024 1:05 PM STAFF REPORTER [facility] MCHC 34.6 32.0 - 36.0 g/dL 06/03/2024 1:05 PM STAFF REPORTER [facility] RDW 18.9(H) 11.5 - 15.5 % 06/03/2024 1:05 PM STAFF REPORTER [facility] PLATELET COUNT 456(H) 140 - 440 thou/cu mm 06/03/2024 1:05 PM STAFF REPORTER [facility] MPV 9.8 6.5 - 11.0 fL 06/03/2024 1:05 PM STAFF REPORTER [facility] NRBC 0.6 % 06/03/2024 1:05 PM STAFF REPORTER [facility] ABS NRBC 0.1 thou /cu mm 06/03/2024 1:05 PM STAFF REPORTER [facility] % NEUT 69.9 % 06/03/2024 1:05 PM STAFF REPORTER [facility] % LYMPH 15.1 % 06/03/2024 1:05 PM STAFF REPORTER [facility] % MONO 13.4 % 06/03/2024 1:05 PM STAFF REPORTER [facility] % EOS 0.2 % 06/03/2024 1:05 PM STAFF REPORTER [facility] % BASO 0.9 % 06/03/2024 1:05 PM STAFF REPORTER [facility] % IMMATURE GRAN (METAS,MYELOS,NC OS) 0.5 % 06/03/2024 1:05 PM STAFF REPORTER [facility] ABSOLUTE NEUTROPHILS 7.7(H) 1.7 - 7.0 thou/cu mm 06/03/2024 1:05 PM [facility] ABSOLUTE LYMPHOCYTES 1.7 0.9 - 2.9 thou/cu mm 06/03/2024 1:05 PM STAFF REPORTER [facility] ABSOLUTE MONOCYTES 1.5(H) <0.9 thou/cu mm 06/03/2024 1:05 PM STAFF REPORTER [facility] ABSOLUTE EOSINOPHILS 0.0 <0.5 thou/cu mm 06/03/2024 1:05 PM STAFF REPORTER [facility] ABSOLUTE BASOPHILS 0.1 <0.3 thou/cu mm 06/03/2024 1:05 PM STAFF REPORTER [facility] ABSOLUTE IMMATURE GRANULOCYTES(MET ,MYELOS,PROS) 0.1 <0.3 thou/cu mm 06/03/2024 1:05 PM STAFF REPORTER [facility] Blood BLOOD SPECIMEN / Unknown IV Start / Unknown 06/03/2024 12:51 PM STAFF REPORTER 06/03/2024 12:54 PM STAFF REPORTER us Ben Swan MD HEMATOLOGY Final Res ult [facility] [address] [place] [address], * (ABNORMAL) BASIC METABOLIC PANEL (06/03/2024 12:51 PM STAFF REPORTER) Only the most recent of3 resultswithin the time period is included. SODIUM 135(L) 136 - 145 mmol/L 06/03/2024 1:13 PM STAFF REPORTER [facility] POTASSIUM 4.5 3.5 - 5.1 mmol/L 06/03/2024 1:13 PM STAFF REPORTER [facility] CHLORIDE 101 98 - 107 mmol/L 06/03/2024 1:13 PM STAFF REPORTER [facility] CO2,TOTAL 21(L) 22 - 29 mmol/L 06/03/2024 1:13 PM STAFF REPORTER [facility] ANION GAP 13 5 - 18 06/03/2024 1:13 PM STAFF REPORTER [facility] GLUCOSE 100(H) 70 - 99 mg/dL 06/03/2024 1:13 PM STAFF REPORTER [facility] CALCIUM 9.6 8.8 - 10.4 mg/dL 06/03/2024 1:13 PM STAFF REPORTER [facility] Comment: Reference ranges for this test were updated on 02/29/2024 to reflect our healthy population more accurately. Reference range changes are not retroactively applied to results, but previous results using the same methodology can be interpreted in the context of the new reference range. BUN 12 6 - 20 mg/dL 06/03/2024 1:13 PM STAFF REPORTER [facility] CREATININE 0.74 0.50 - 0.90 mg/dL 06/03/2024 1:13 PM STAFF REPORTER [facility] BUN/CREAT RATIO 16 10 - 20 5 1:13 PM STAFF REPORTER [facility] eGFR >90 >90 mL/min/1.7 3m2 06/03/2024 1:13 PM STAFF REPORTER [facility] Comment:As of 2021, eG FR is calculated by the CKD-EPI creatinine equation without race adjustment. eGFR can be influenced by muscle mass, exercise, and diet. The reported eGFR is an estimation only and is only applicable if the renal function is stable. Blood BLOOD SPECIMEN / Unknown IV Start / Unknown 06/03/2024 12:51 PM STAFF REPORTER 06/03/2024 12:54 PM STAFF REPORTER us Ben Swan MD CHEMISTRY Final Res ult [facility] [address] [place] [address], * XR CHEST 2 VIEWS PA AND LATERAL (06/03/2024 12:34 PM STAFF REPORTER) Anatomical Region Laterality Modality CHEST, THORAX, Lung, HEART Compu frank Radiography 06/03/2024 12:3 4 PM STAFF REPORTER Impressions 06/03/2024 1:03 PM STAFF REPORTER Faintly visible nodularity mid and lower lungs correspond to pulmonary nodules on recent CT. No focal pulmonary consolidation. No pleural effusion. No pneumothorax. Heart size normal. Port anterior right chest wall with right-sided CVC low SVC. In addition, there is a left-sided port anterior left chest wall with left CVC tip also in the low SVC. Narrative 06/03/2024 1:03 PM STAFF REPORTER For Patients: As a result of the [...] * EKG 12 LEAD (06/03/2024 11:48 AM STAFF REPORTER) Only the most recent of4 resultswithin the time period is included. Interpretation [...] NOW QTc 454 ms BEYOND NOW P [place] 54 degrees BEYOND NOW R [place] 55 degrees BEYOND NOW T [place] 31 degrees BEYOND NOW 06/03/2024 11:4 8 AM STAFF REPORTER 06/04/2024 3:27 AM STAFF REPORTER Narrative BEY[facility] NOW - 06/04/2024 3:27 AM STAFF REPORTER Test Indication: chest pain [facility] Triage EKG ORD Final Result [place] NOW [place], [place] * (ABNORMAL) HEMOGLOBIN (05/29/2024 2:23 PM STAFF REPORTER) HEMOGLOBIN 7.1(L) 12.0 - 16.0 g/dL 05/29/2024 2:32 PM STAFF REPORTER [facility] MCV 93 80 - 100 fL 05/29/2024 2:32 PM STAFF REPORTER [facility] Blood BLOOD SPECIMEN / Unknown IV Start / Unknown 05/29/2024 2:23 PM STAFF REPORTER 05/29/2024 2:30 PM STAFF REPORTER Ana Pacheco MD HEMATOLOGY Final Result [facility] [address] [place] [id number], * (ABNORMAL) RED CELL MORPHOLOGY (05/07/2024 6:20 PM STAFF REPORTER) Only the most recent of2 resultswithin the time period is included. POLYCHROMASIA Moderate 05/07/2024 6:33 PM STAFF REPORTER [facility] TARGET CELLS Moderate 05/07/2024 6:33 PM STAFF REPORTER [facility] RBC COMMENT Present(A) RBC morphology appears normal, RBC morphology within normal limits for newborns. 05/07/2024 6:33 PM STAFF REPORTER [facility] *SICKLE CELLS Present 05/07/2024 6:33 PM STAFF REPORTER [facility] Blood BLOOD SPECIMEN / Unknown Butterfly / Unknown 05/07/2024 6:20 PM STAFF REPORTER 05/07/2024 6:23 PM STAFF REPORTER us Caryn Rasmussen MD HEMATOLOGY Final Result Performing Organization Address [facility]/ZIP Co de Phone Number [facility] [address] [place] [address], [place] [phone] * PLATELET ESTIMATE (05/07/2024 6:20 PM STAFF REPORTER) Only the most recent of2 resultswithin the time period is included. PLATELET ESTIMATE Adequate Adequate, No estimate 05/07/2024 6:33 PM STAFF REPORTER [facility] Blood BLOOD SPECIMEN / Unknown Butterfly / Unknown 05/07/2024 6:20 PM STAFF REPORTER 05/07/2024 6:23 PM STAFF REPORTER Caryn Rasmussen MD HEMATOLOGY Final Result Performing Organization Address City/[facility] Co de Phone Number [facility] [address] [place] [address], [place] [phone] * (ABNORMAL) CBC W PLT NO DIFF (05/07/2024 6:20 PM STAFF REPORTER) WHITE BLOOD COUNT 15.6(H) 4.5 - 11.0 thou/cu mm 05/07/2024 6:33 PM STAFF REPORTER [facility] RED BLOOD COUNT 2.71(L) 4.00 - 5.20 mil/cu mm 05/07/2024 6:33 PM STAFF REPORTER [facility] HEMOGLOBIN 8.7(L) 12.0 - 16.0 g/dL 05/07/2024 6:33 PM STAFF REPORTER [facility] HEMATOCRIT 25.4(L) 33.0 - 51.0 % 05/07/2024 6:33 PM STAFF REPORTER [facility] MCV 94 80 - 100 fL 05/07/2024 6:33 PM STAFF REPORTER [facility] MCH 32.1 26.0 - 34.0 pg 05/07/2024 6:33 PM STAFF REPORTER [facility] MCHC 34.3 32.0 - 36.0 g/dL 05/07/2024 6:33 PM STAFF REPORTER [facility] RDW 23.3(H) 11.5 - 15.5 % 05/07/2024 6:33 PM STAFF REPORTER [facility] PLATELET COUNT 356 140 - 440 thou/cu mm 05/07/2024 6:33 PM STAFF REPORTER [facility] MPV 9.8 6.5 - 11.0 fL 05/07/2024 6:33 PM STAFF REPORTER [facility] NRBC 2.0 % 05/07/2024 6:33 PM STAFF REPORTER [facility] ABS NRBC 0.3 thou /cu mm 05/07/2024 6:33 PM STAFF REPORTER [facility] Blood BLOOD SPECIMEN / Unknown Butterfly / Unknown 05/07/2024 6:20 PM STAFF REPORTER 05/07/2024 6:23 PM STAFF REPORTER Caryn Rasmussen MD HEMATOLOGY Final Result [facility] [place] [address], * (ABNORMAL) RETICULOCYTES (05/07/2024 6:20 PM STAFF REPORTER) Only the most recent of2 resultswithin the time period is included. RETIC% 20.3(H) 0.5 - 1.5 % 05/07/2024 6:34 PM STAFF REPORTER [facility] RETIC (ABSOLUTE) 0.55(H) 0.03 - 0.08 mil/cu mm 05/07/2024 6:34 PM STAFF REPORTER [facility] Blood BLOOD SPECIMEN / Unknown Butterfly / Unknown 05/07/2024 6:20 PM STAFF REPORTER 05/07/2024 6:23 PM STAFF REPORTER Caryn Rasmussen MD HEMATOLOGY Final Result Performing Organization Address [facility]/ZIP Co de Phone Number [facility] [address] [place] [address], [place] [phone] * LIPASE (05/07/2024 6:20 PM STAFF REPORTER) LIPASE 35.9 13.0 - 60.0 IU/L 05/07/2024 6:53 PM STAFF REPORTER [facility] Blood BLOOD SPECIMEN / Unknown Butterfly / Unknown 05/07/2024 6:20 PM STAFF REPORTER 05/07/2024 6:23 PM STAFF REPORTER Caryn Rasmussen MD CHEMISTRY Final Result Performing Organization Address [facility] Co de Phone Number [facility] [address] [place] [address], * (ABNORMAL) HEPATIC FUNCTION PANEL (05/07/2024 6:20 PM STAFF REPORTER) Only the most recent of2 resultswithin the time period is included. ALBUMIN 4.4 4.0 - 4.9 g/dL 05/07/2024 6:53 PM STAFF REPORTER [facility] PROTEIN,TOTAL 8.1(H) 6.0 - 8.0 g/dL 05/07/2024 6:53 PM STAFF REPORTER [facility] BILIRUBIN,TOTAL 2.2(H) 0.0 - 1.2 mg/dL 05/07/2024 6:53 PM STAFF REPORTER [facility] BILIRUBIN,DIRECT 0.9(H) 0.0 - 0.2 mg/dL 05/07/2024 6:53 PM STAFF REPORTER [facility] BILIRUBIN,INDIRE CT 1.3(H) 0.2 - 0.8 mg/dL 05/07/2024 6:53 PM STAFF REPORTER [facility] ALK PHOSPHATASE 120(H) 35 - 104 IU/L 05/07/2024 6:53 PM STAFF REPORTER [facility] ALT (SGPT) 28 10 - 35 IU/L 05/07/2024 6:53 PM STAFF REPORTER [facility] AST (SGOT) 46(H) 10 - 35 IU/L 05/07/2024 6:53 PM STAFF REPORTER [facility] Blood BLOOD SPECIMEN / Unknown Butterfly / Unknown 05/07/2024 6:20 PM STAFF REPORTER 05/07/2024 6:23 PM STAFF REPORTER Caryn Rasmussen MD CHEMISTRY Final Result [facility] [address] [place] [address], * CT CHEST PE STUDY (05/04/2024 1:46 AM STAFF REPORTER) Anatomical Region Laterality Modality CHEST, THORAX, HEART Computed To mography 05/04/2024 1:46 AM STAFF REPORTER Impressions 05/04/2024 2:01 AM STAFF REPORTER 1. No pulmonary embolus. 2. Multiple small bilateral pulmonary nodules and mild enlargement of right hilar lymph nodes not significantly changed from the recent study of 04/06/2024. Differential diagnosis includes inflammatory/infectious and neoplastic etiologies. Narrative 05/04/2024 2:01 AM STAFF REPORTER For Patients: As a result of the Cures Act, medical imaging exams and procedure reports are released immediately into your electronic medical record. You may view this report before your referring provider. If you have questions, please contact your health care provider. EXAM: CT CHEST PE STUDY LOCATION: [facility] DATE: 05/04/2024 INDICATION: Pulmonary embolism (PE) [...] provider. EXAM: CT CHEST PE STUDY LOCATION: [facility] DATE: 05/04/2024 INDICATION: Pulmonary embolism (PE) [...] of04/06/2024. Differential diagnosis includes inflammatory/infectious andneoplastic etiologies. Anika Mccracken MD CT Final Resu lt * UA W/ SEDIMENT EXAM REFLEXED PER CRITERIA (05/04/2024 12:07 AM STAFF REPORTER) COLOR Yellow Yellow Color 05/04/2024 12:18 AM [facility] CLARITY Clear Clear Clarity 05/04/2024 12:18 AM [facility] SPECIFIC GRAVITY,URINE 1.015 1.010, 1.015, 1.020, 1.025 05/04/2024 12:18 AM [facility] PH,URINE 7.0 6.0, 7.0, 8.0, 5.5, 6.5, 7.5, 8.5 05/04/2024 12:18 AM [facility] UROBILINOGEN,Q UALITATIVE Normal Normal EU/dl 05/04/2024 12:18 AM [facility] PROTEIN, URINE Negative Negative mg/dL 05/04/2024 12:18 AM [facility] GLUCOSE, URINE Negative Negative mg/dL 05/04/2024 12:18 AM [facility] KETONES,URINE Negative Negative mg/dL 05/04/2024 12:18 AM [facility] BILIRUBIN,URIN E Negative Negative 05/04/2024 12:18 AM [facility] OCCULT BLOOD,URINE Negative Negative 05/04/2024 12:18 AM [facility] NITRITE Negative Negative 05/04/2024 12:18 AM STAFF REPORTER [facility] LEUKOCYTE ESTERASE Negative Negative 05/04/2024 12:18 AM STAFF REPORTER [facility] Urine URINE SPECIMEN / Unknown Non-Blood / Unknown 05/04/2024 12:07 AM STAFF REPORTER 05/04/2024 12:13 AM STAFF REPORTER Anika Mccracken MD URINE Final Resu lt [facility] [address] [place], [place] [id number], [place] [phone] * URINE (05/04/2024 12:07 AM STAFF REPORTER) ,URIN E Negative Negative 05/04/2024 12:22 AM STAFF REPORTER [facility] Urine URINE SPECIMEN / Unknown Non-Blood / Unknown 05/04/2024 12:07 AM STAFF REPORTER 05/04/2024 12:13 AM STAFF REPORTER Anika Mccracken MD URINE Final Resu lt Performing Organization Address City/[facility]/ZIP Co de Phone Number [facility] [address] [place] [address], [place] [phone] * CWS PATH REVIEW HEMATOLOGY (05/03/2024 11:52 PM STAFF REPORTER) PATH COMMENT Comment: 05/06/2024 7:30 AM STAFF REPORTER [facility] Comment:Frequent sickle cell s. Reviewed by Dr. Richar Huffman on 05/05/2024 Blood BLOOD SPECIMEN / Unknown IV Start / Unknown 05/03/2024 11:52 PM STAFF REPORTER 05/03/2024 11:52 PM STAFF REPORTER Anika Mccracken MD LABORATORY Final Resu lt [facility] [address] [place] [id number], * (ABNORMAL) MANUAL DIFFERENTIAL (05/03/2024 11:52 PM STAFF REPORTER) % NEUTROPHILS 55.0 % 05/04/2024 12:13 AM STAFF REPORTER [facility] % LYMPHOCYTES 33.0 % 05/04/2024 12:13 AM STAFF REPORTER [facility] % MONOCYTES 10.0 % 05/04/2024 12:13 AM STAFF REPORTER [facility] % EOSINOPHILS 2.0 % 05/04/2024 12:13 AM STAFF REPORTER [facility] % BASOPHILS 0.0 % 05/04/2024 12:13 AM STAFF REPORTER [facility] NEUTROPHILS ABSOLUTE 10.6(H) 1.7 - 7.0 thou/cu mm 05/04/2024 12:13 AM STAFF REPORTER [facility] LYMPHOCYTES ABSOLUTE 6.3(H) 0.9 - 2.9 thou/cu mm 05/04/2024 12:13 AM STAFF REPORTER [facility] MONOCYTES ABSOLUTE 1.9(H) <0.9 thou/cu mm 05/04/2024 12:13 AM STAFF REPORTER [facility] EOSINOPHILS ABSOLUTE 0.4 <0.5 thou/cu mm 05/04/2024 12:13 AM STAFF REPORTER [facility] BASOPHILS ABSOLUTE 0.0 <0.3 thou/cu mm 05/04/2024 12:13 AM STAFF REPORTER [facility] Blood BLOOD SPECIMEN / Unknown IV Start / Unknown 05/03/2024 11:52 PM STAFF REPORTER 05/03/2024 11:52 PM STAFF REPORTER us Anika Mccracken MD HEMATOLOGY Final Resu lt [facility] [address] [place] [address], * (ABNORMAL) D-DIMER,QUANTITATIVE (05/03/2024 11:52 PM STAFF REPORTER) D-DIMER,QUANTI TATIVE 1.51(H) <=0.49 FEU mcg/mL 05/04/2024 12:28 AM STAFF REPORTER [facility] Blood BLOOD SPECIMEN / Unknown IV Start / Unknown 05/03/2024 11:52 PM STAFF REPORTER 05/03/2024 11:52 PM STAFF REPORTER Narrative [facility] - 05/04/2024 12:28 AM STAFF REPORTER The cut off value for exclusion of Deep Vein Thrombosis and / or Pulmonary Embolism is 0.50 FEU mcg/mL For patients greater than 50 years of age the upper limit is age dependent and was calculated with the formula: (PATIENT AGE x 0.01) FEU mcg/mL = Upper limit of normal range us Anika Mccracken MD HEMATOLOGY Final Resu lt [address] [address], from Last 3 Months Insurance [facility] Advance Directives * Full Code (Latest Code Status on File) Date Activated Date Inactivated Comments 03/28/2024 10:36 PM 03/30/2024 11:39 AM Question Answer Comments Code Status Discussion: Reviewed Preferences * Full Code Date Activated Date Inactivated Comments 03/16/2024 1:29 AM 03/18/2024 1:58 PM Question Answer Comments Code Status Discussion: Reviewed Preferences Care Teams Medical Claims Processor Relationship Specialty Start Date End Date Veronica Joseph MD [address] [place] [address] PCP - General Family Practice 03/29/24
--- OUTSIDE RECORDS SUMMARY | 2024-07-28 20:44 | XMS_ITS | Encounter Summary ---
Author Organization [facility] Address [address] [place] [address]. [place] [address] Care Team Providers Care Direct Service Worker Name Role Phone Roxy Mor Unavailable Unavailable Case Samuel MD Unavailable [phone] Juhi Benson RN Unavailable Unavailable Veronica Joseph MD Primary Care Provider [phone] Reason for Visit * Reason Comments Infusion IVF/Pain Medications Encounter Details Date Type Department Care Team (Late st Contact Info) Description 07/17/2024 2:30 PM CDT Infusion Therapy Visit [facility] [address] [place] [address] Tatiana Cohen CNP [address] [address] Sickle cell pain crisis (H) (Primary [...] on file 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 Gender Identity Not on file Sexual Orientation Not on file documented as of this encounter Patient Instructions * Patient Instructions* Kiki Williamson RN - 07/17/2024 2:30 PM CDT Contact Numbers [facility] Main Line (for Scheduling/Triage/After Hours Nurse Line): [phone] Please call the [facility] nurse triage or the after hours nurse line if you experience a temperature greater than or equal to 100.4, shaking chills, have uncontrolled nausea, vomiting and/or diarrhea, dizziness, lightheadedness, shortness of breath, chest pain, bleeding, unexplained bruising, or if you have any other new/concerning symptoms, questions or concerns. If you are having any concerning symptoms or wish to speak to a provider before your next infusion visit, please call your animal care giver or triage to notify them so we can adequately serve you. If you need any refills on medications (narcotics or other medications), please call before your infusion appointment. documented in this encounter Progress Notes * Kiki Williamson, RN - 07/17/2024 2:30 PM CDT Infusion Nursing Note: Gianna Hernández presents today for IVF/Pain Medications. Patient seen by provider today: Tatiana Cohen, HR ASSISTANT Laborer Cement Gun Placing present during visit today: Not Applicable Note: Patient reports with 8/10 pain in legs/low back. Denies any recent fevers/chill. Patient is otherwise in good spirits today. Declined Zofran today. Pain rated as 5/10 prior to dismissal. Intravenous Access: Implanted Port. Treatment Conditions: Not Applicable. Post Infusion Assessment: Patient tolerated infusion without incident. Blood return noted pre and post infusion. Site patent and intact, free from redness, edema or discomfort. No evidence of extravasations. Access discontinued per protocol. Discharge Plan: Patient declined prescription refills. Discharge instructions reviewed with: Patient. Patient and/or family verbalized understanding of discharge instructions and all questions answered. AVS to patient via [employer]. No future appointments currently scheduled. Patient discharged in stable condition accompanied by: self. Departure Mode: Ambulatory. Kiki Williamson, RN documented in this encounter Plan of Treatment Upcoming Encounters Date Type Department Care Team (Late st Contact Info) Description 08/07/2024 7:15 AM CDT Lab [facility] [address] [place] [address] Case Samuel MD [address] [place] [address], [address] [place], [place] [address] 08/08/2024 8:00 AM CDT Appointment [facility] [address] [place] [phone] Case Samuel MD [address] [place] [address], [address] [place], [place] [id number] 10/30/2024 11:30 AM CDT Lab [facility] [address] [place] [phone] Case Samuel MD [address] [place] [address], [address] [place] [address] 10/30/2024 12:00 PM CDT Oncology Visit [facility] [address] [place] [phone] Case Samuel MD 420 [facility] [address], [address] [place], [place] [id number] documented as of this encounter Goals Goal Patient Goal Type Associated Problems Recent Progress Patient-Stated? Author Pain Management General On track( 025 2:58 PM CDT) Yes Juhi Benson, SOFIA Note: Goal Statement: [...] port or lock each lumen, Starting on Wed07/17/24 at 1526, PORT: to de-access, instill 5 mL before PORT needle is removed and every 28 days. Apheresis: only for use when patient is NOT under care of apheresis services; after a 10 mL NS flush, lock each lumen of the catheter with 5 mL.Indications:Sickle cell pain crisis (H) $Given 07/17/2024 4:52 PM CDT 5 mLs HYDROmorphone (DILAUDID) injection 2 mg 2 mg, Intravenous, EVERY 1 HOUR PRN, severe pain, moderate pain, Starting on Wed07/17/24 at 1426, For 3 dosesIndications:Sickle cell pain crisis (H) $Given 07/17/2024 4:39 PM CDT 2 mg $Given 07/17/2024 3:39 PM CDT 2 mg $Given 07/17/2024 2:35 PM CDT 2 mg lactated ringers BOLUS 1,000 mL Intravenous, 1,000 mL, ONCE, at 500 mL/hr, Administer over 2 Hours, On Wed07/17/24 at 1430, For 1 doseIndications:Sickle cell pain crisis (H) $New Bag 07/17/2024 2:46 PM CDT 1,000 mLs 500 mL/hr sodium chloride (PF) 0.9% PF flush 3-20 mL 3-20 mL, Intracatheter, EVERY 1 MIN PRN, line flush, post meds or blood draw, Starting on Wed07/17/24 at 1526, PIV: 3 mL after each use & [...] blood draw.Indications:Sickle cell pain crisis (H) $Given 07/17/2024 4:52 PM CDT 10 mLs documented in this encounter Care Teams Direct Service Worker Relationship Specialty Start Date End Date Veronica Joseph MD [address] [place] [address] PCP - General Family Medicine 06/18/24 Mor Ramsey Medical Student 04/03/24 Case Samuel MD 420 [facility] [address], [address] [place] [address] Assigned Pediatric Specialist Provider 05/18/24 Juhi Benson, RN Specialty Immigration Specialist Hematology & Oncology 05/29/24 documented as of this encounter
--- OUTSIDE RECORDS SUMMARY | 2024-07-28 20:44 | XMS_ITS | Encounter Summary ---
Author Organization [facility] Address [address] [place] [address]. 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 Does pt have enough for today? No tablets remaining--was expecting to get it yesterday. Explained that it looks like refills are provided on Tuesdays. Pt voiced understanding. Is pain being adequately controlled on the current regimen?: Yes Experiencing any side effects from medication?: No Date of most recent appointment: 07/17/24 with Tatiana Cohen CNP Any No Show Visits:No Next appointment: 10/30/[address] Samuel HEMODIALYSIS CHARGE NURSE Reviewed: No access Routed/Paged provider: Tatiana Cohen CNP documented in this encounter Plan of Treatment Upcoming Encounters Date Type Department Care Team (Late st Contact Info) Description 08/07/2024 7:15 AM CDT Lab [facility] [address] [phone] Case Samuel MD [address] [place] [address], [address] [id number] 08/08/2024 8:00 AM CDT Appointment [facility] [address] [phone] Case Samuel MD [address] [place] [address], [address] [address] 10/30/2024 11:30 AM CDT Lab [facility] [address] [phone] Case Samuel MD [address] [place], [place] [address], [address] [id number] 10/30/2024 12:00 PM CDT Oncology Visit [facility] [address] [phone] Case Samuel MD [address] [place] [address], [address] [address] documented as of this encounter Goals Goal [...] crisis documented in this encounter Care Teams Ore Fielder Relationship Specialty Start Date End Date Veronica Joseph MD [address] [place] [address] PCP - General Family Medicine 06/18/24 Mor Ramsey Medical Student 04/03/24 Case Samuel MD [address] [place] [address], [address] [place] [address] Assigned Pediatric Specialist Provider 05/18/24 Juhi Benson, RN Specialty Developmental Mathematics Professor Hematology & Oncology 05/29/24 documented as of this encounter
--- OUTSIDE RECORDS SUMMARY | 2024-07-28 20:45 | XMS_ITS | Encounter Summary ---
Author Organization [facility] Address [address] [place] [address]. [place] [address] Care Team Providers Care Mortgage Or Loan Underwriter Name Role Phone [employer] Unavailable Unavailable Case Samuel MD Unavailable [phone] Juhi Benson RN Unavailable Unavailable Veronica Joseph MD Primary Care Provider [phone] Reason for Visit * Reason Comments Sickle Cell Pain Crisis Chest Pain Encounter Details Date Type Department Care Team ([facility] st Contact Info) Description 07/25/2024 7:48 PM CDT - 07/25/2024 11:26 PM CDT Emergency [facility] Emergency Department [address] [place] [phone] Emanuel Chester MD [address] [place] [phone] Sickle cell pain crisis (H) Discharge Disposition: [...] on file Legal Sex Female 8:25 AM [employer]LLOW [employer]ARE [employer] Gender Identity Not on file Sexual Orientation Not on file documented as of this encounter Last Filed Vital Signs Vital Sign Reading Time Taken Comments Blood Pressure 119/71 07/25/2024 11:24 PM CDT Pulse 94 07/25/2024 11:24 PM CDT Temperature 36.9 C (98.4 F) 07/25/2024 9:43 PM CDT Respiratory Rate 18 07/25/2024 11:24 PM CDT Oxygen Saturation 100% 07/25/2024 11:24 PM CDT Inhaled Oxygen Concentration - - Weight 52.2 kg (115 lb) 07/25/2024 7:43 PM CDT Height 154.9 cm (5' 1) 07/25/2024 7:43 PM CDT Body Mass Index 21.73 07/25/2024 7:43 PM CDT documented in this encounter Discharge Instructions * Discharge Instructions* Emanuel Chester MD - 07/25/2024 10:59 PM CDT Please make an appointment to follow up with Your Hematology and or Your Primary Care Provider as soon as possible even if entirely better. * Attachments The following attachments cannot be [...] by mouth daily. 40 capsule 1 05/29/2024 FLUoxetine (PROZAC) 20 MG capsuleIndications :Severe episode of recurrent major depressive disorder, without psychotic features (H) Take 1 capsule (20 mg) by mouth daily. 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 45 tablet 07/18/2024 hydroxyurea (HYDREA) 500 MG capsuleIndications :History of [...] 05/01/2024 naloxone (NARCAN) 4 MG/0.1ML nasal spray Kelly 1 spray (4 mg) into one nostril alternating nostrils as needed for opioid reversal (for opiate overdose if not breathing and unconscious. have your family member watch video on how to use/read information sheet). every 2-3 minutes until assistance arrives 2 each 06/06/2024 documented as of this encounter ED Notes * Juhi Crump RN - 07/25/2024 7:48 PM CDT Bed: [facility] Expected date: Expected time: Means of arrival: Comments: Hwy appropriate * Hortencia Osman RN - 07/25/2024 7:44 PM CDT Patient ambulatory to triage. Patient states she is having a sickle cell pain crisis. Pain is in the back, legs, and her chest. Chest pain is not her usual sickle cell place for pain but her back andher legs are. 01/03 pain VSS * Emanuel Chester MD - 07/25/2024 7:41 PM CDT Images from the original note were not included. 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 Patient reports back pain, leg pain, and chest pain. Patient states this is kind of like her typical symptoms. Patient reports this started 2 days ago. Patient suspects its because of the weather. Patient denies fever, cough, vomiting, and any other symptoms. Past Medical History Past Medical History: [...] injection 2-pack FLUoxetine (PROZAC) 10 MG capsule FLUoxetine (PROZAC) 20 MG capsule folic acid (FOLVITE) 1 MG [...] all other systems negative. Physical Exam BP: 110/74 Pulse: 98 Temp: 98.4 ??F (36.9 ??C) Resp: 18 Height: 154.9 cm (5' 1) Weight: 52.2 kg (115 lb) SpO2: 99 % Physical Exam Vitals and nursing note reviewed. Constitutional: General: She is not in acute distress. Appearance: Normal appearance. She is not diaphoretic. HENT: Head: Normocephalic and atraumatic. Mouth/Throat: Mouth: Mucous membranes are moist. Eyes: General: No scleral icterus. Extraocular Movements: Extraocular movements intact. Conjunctiva/sclera: Conjunctivae normal. Cardiovascular: Rate and Rhythm: Normal rate and regular rhythm. Heart sounds: Normal heart sounds. No murmur heard. No friction rub. No gallop. Pulmonary: Effort: Pulmonary effort is normal. No respiratory distress. Breath sounds: Normal breath sounds. No stridor. No wheezing, rhonchi or rales. Chest: Chest wall: No tenderness. Abdominal: General: Abdomen is flat. Bowel sounds are normal. There is no distension. Palpations: Abdomen is soft. There is no mass. Tenderness: There is no abdominal tenderness. There is no right CVA tenderness, left CVA tenderness, guarding or rebound. Hernia: No hernia is present. Musculoskeletal: General: No tenderness. Normal range of motion. Cervical back: Normal range of motion and neck supple. Skin: General: Skin is warm. Findings: No rash. Neurological: General: No focal deficit present. Mental Status: She is alert. Cranial Nerves: No cranial nerve deficit. ED Course, Procedures, & Data Procedures Results for orders placed or performed during the hospital encounter of 07/25/24 [place] Draw Status: None (In process) Narrative The following orders were created for panel order [place] Draw. Procedure Abnormality Status --------- ------ Extra Blue Top Tube[[id number]] In process Extra Red Top Tube[[id number]] In process Extra Green Top (Lithiu...[[id number]] Extra Purple Top Tube[[id number]] Please view results for these tests on the individual orders. Comprehensive metabolic panel Status: Abnormal Result Value Ref Range Sodium 137 135 - 145 mmol/L Potassium 4.2 3.4 - 5.3 mmol/L Carbon Dioxide (CO2) 21 (L) 22 - 29 mmol/L Anion Gap 12 7 - 15 mmol/L Urea Nitrogen 8.4 6.0 - 20.0 mg/dL Creatinine 0.65 0.51 - 0.95 mg/dL GFR Estimate >90 >60 mL/min/1.73m2 Calcium 9.5 8.8 - 10.4 mg/dL Chloride 104 98 - 107 mmol/L Glucose 100 (H) 70 - 99 mg/dL Alkaline Phosphatase 115 40 - 150 U/L AST 32 0 - 45 U/L ALT 27 0 - 50 U/L Protein Total 8.4 (H) 6.4 - 8.3 g/dL Albumin 4.5 3.5 - 5.2 g/dL Bilirubin Total 1.3 (H) <=1.2 mg/dL Troponin T, High Sensitivity Status: Normal Result Value Ref Range Troponin T, High Sensitivity <6 <=14 ng/L Reticulocyte count Status: Abnormal Result Value Ref Range % Reticulocyte 7.0 (H) 0.5 - 2.0 % Absolute Reticulocyte 0.206 (H) 0.025 - 0.095 10e6/uL CBC with platelets and differential Status: Abnormal Result Value Ref Range WBC Count 11.5 (H) 4.0 - 11.0 10e3/uL RBC Count 2.94 (L) 3.80 - 5.20 10e6/uL Hemoglobin 9.1 (L) 11.7 - 15.7 g/dL Hematocrit 27.1 (L) 35.0 - 47.0 % MCV 92 78 - 100 fL MCH 31.0 26.5 - 33.0 pg MCHC 33.6 31.5 - 36.5 g/dL RDW 15.4 (H) 10.0 - 15.0 % Platelet Count 654 (H) 150 - 450 10e3/uL % Neutrophils 61 % % Lymphocytes 26 % % Monocytes 11 % % Eosinophils 0 % % Basophils 1 % % Immature Granulocytes 1 % NRBCs per 100 WBC 0 <1 /100 Absolute Neutrophils 7.0 1.6 - 8.3 10e3/uL Absolute Lymphocytes 3.0 0.8 - 5.3 10e3/uL Absolute Monocytes 1.3 0.0 - 1.3 10e3/uL Absolute Eosinophils 0.0 0.0 - 0.7 10e3/uL Absolute Basophils 0.1 0.0 - 0.2 10e3/uL Absolute Immature Granulocytes 0.1 <=0.4 10e3/uL Absolute NRBCs 0.1 10e3/uL RBC and Platelet Morphology Status: Abnormal Result Value Ref Range RBC Morphology Confirmed RBC Indices Platelet Assessment Automated Count Confirmed. Platelet morphology is normal. Automated Count Confirmed. Platelet morphology is normal. Polychromasia Slight (A) None Seen Sickle Cells Slight (A) None Seen Target Cells Slight (A) None Seen EKG 12-lead, tracing only Status: None (Preliminary result) Result Value Ref Range Systolic Blood Pressure mmHg Diastolic Blood Pressure mmHg Ventricular Rate 88 BPM Atrial Rate 88 BPM DC Interval 138 ms QRS Duration 76 ms QT 356 ms QTc 430 ms P [place] 62 degrees R AXIS 57 degrees T [place] 21 degrees Interpretation ECG Sinus rhythm Normal ECG CBC with platelets differential Status: Abnormal Narrative The following orders were created for panel order CBC with platelets differential. Procedure Abnormality Status --------- ------ CBC with platelets and ...[[id number]] Abnormal Final result RBC and Platelet Morpho...[[id number]] Abnormal Final result Please view results for these tests on the individual orders. Medications hydromorphone (DILAUDID) injection 2 mg (2 mg Intravenous $Given 07/25/242258) heparin lock flush 10 unit/mL injection 5-10 mL (has no administration in time range) sodium chloride (PF) 0.9% PF flush 10-20 mL (10 mLs Intracatheter $Given 07/25/242317) heparin lock flush 100 unit/mL injection 5-10 mL (5 mLs Intracatheter $Given 07/25/242318) lactated ringers BOLUS 1,000 mL (0 mLs Intravenous Stopped 07/25/242300) ondansetron (ZOFRAN) injection 8 mg (8 mg Intravenous $Given 07/25/242034) Labs Ordered and Resulted from Time of ED Arrival to Time of ED Departure COMPREHENSIVE METABOLIC PANEL - Abnormal Result Value Sodium 137 Potassium 4.2 Carbon Dioxide (CO2) 21 (*) Anion Gap 12 Urea Nitrogen 8.4 Creatinine 0.65 GFR Estimate >90 Calcium 9.5 Chloride 104 Glucose 100 (*) Alkaline Phosphatase 115 AST 32 ALT 27 Protein Total 8.4 (*) Albumin 4.5 Bilirubin Total 1.3 (*) RETICULOCYTE COUNT - Abnormal % Reticulocyte 7.0 (*) Absolute Reticulocyte 0.206 (*) CBC WITH PLATELETS AND DIFFERENTIAL - Abnormal WBC Count 11.5 (*) RBC Count 2.94 (*) Hemoglobin 9.1 (*) Hematocrit 27.1 (*) MCV 92 MCH 31.0 MCHC 33.6 RDW 15.4 (*) Platelet Count 654 (*) % Neutrophils 61 % Lymphocytes 26 % Monocytes 11 % Eosinophils 0 % Basophils 1 % Immature Granulocytes 1 NRBCs per 100 WBC 0 Absolute Neutrophils 7.0 Absolute Lymphocytes 3.0 Absolute Monocytes 1.3 Absolute Eosinophils 0.0 Absolute Basophils 0.1 Absolute Immature Granulocytes 0.1 Absolute NRBCs 0.1 RBC AND PLATELET MORPHOLOGY - Abnormal RBC Morphology Confirmed RBC Indices Platelet Assessment Value: Automated Count Confirmed. Platelet morphology is normal. Polychromasia Slight (*) Sickle Cells Slight (*) Target Cells Slight (*) TROPONIN T, HIGH SENSITIVITY - Normal Troponin T, High Sensitivity <6 No orders to display Critical care was [...] drug management including medications given in the ED). Assessment & Plan Painful crisis of sickle cell disease SStype, no resp or gi symptom, no fever, feels possible change in weather precipitating, followed the care plan with improvements, discharge and follow up with her Heme and or PMD. I have reviewed the nursing notes. I have reviewed the findings, diagnosis, plan and need for follow up with the patient. Discharge Medication List as of 07/25/2024 11:19 PM Final diagnoses: Sickle cell pain crisis (H) Dmitriy Long, am serving as a trained territory sales manager medical to document services personally performed by Emanuel Chester MD based on the provider's statements to me on July 25, 2024. This document has been checked and approved by the attending provider. Emanuel Long MD, was physically present and have reviewed and verified the accuracy of this note documented by Dmitriy Steinberg, territory sales manager medical. Emanuel Chester MD [facility] 07/25/2024 Emanuel Chester MD 07/25/24 [id number] documented in this encounter Plan of Treatment Upcoming Encounters Date Type Department Care Team (Late st Contact Info) Description 08/07/2024 7:15 AM CDT Lab [facility] Cancer [address] [phone] Case Samuel MD [address] [place] [address], RO[address] [id number] 08/08/2024 8:00 AM CDT Appointment [facility] Advanced Treatment [address] [phone] Case Samuel MD [address] [place] [address], ROOM [address] [address] 10/30/2024 11:30 AM CDT Lab [facility] Cancer [address] [phone] Case Samuel MD [address] [place] [address], ROOM [address] [id number] 10/30/2024 12:00 PM CDT Oncology Visit [facility] [address] [phone] Case Smauel MD [address] [place] [address], ROOM [address] [address] Pending Results Name Type Priority Associated Diagnoses Date /Time [place] Draw Lab STAT 07/25/2024 8 :24 PM CDT EKG 12-lead, tracing only EKG STAT 07/25/2024 7:55 PM CDT Extra Blue Top Tube Lab STAT 07/25 8:24 PM CDT Extra Red Top Tube Lab STAT 2024 8:24 PM CDT Scheduled Orders Name Type Priority Associated Diagnoses Orde r Schedule [place] [facility] Lab STAT Routine for 1 Occurrences starting 07/25/2024 until 07/25/2024 Extra Blue Top Tube Lab STAT Once for 1 Occurrences starting 07/25/2024 until 07/25/2024, 1 completed Extra Red Top Tube Lab STAT Once f or 1 Occurrences starting 07/25/2024 until 07/25/2024, 1 completed documented as of this encounter Goals Goal [...] Diagnosis Comments RBC AND PLATELET MORPHOLOGY STAT 07/25/2024 8:24 PM CDT CBC WITH PLATELETS AND DIFFERENTIAL STAT 07/25/2024 8:24 PM CDT TROPONIN T, HIGH SENSITIVITY STAT 07/25/2024 8:24 PM CDT CBC WITH PLATELETS & DIFFERENTIAL STAT 07/25/2024 8:24 PM CDT RETICULOCYTE COUNT STAT 07/25/2024 8: 24 PM CDT COMPREHENSIVE METABOLIC PANEL STAT 07/25/2024 8:24 PM CDT EKG 12-LEAD, TRACING ONLY STAT 07/25/2024 7:55 PM CDT documented in this encounter Results * (ABNORMAL) RBC and Platelet Morphology (07/25/2024 8:24 PM CDT) [facility] RBC Morphology Confirmed RBC Indices 07/25/2024 9:24 PM CDT [facility] Platelet Assessment Automated Count Confirmed. Platelet morphology is normal. Automated Count Confirmed. Platelet morphology is normal. 07/25/2024 9:24 PM CDT [facility] Polychromasia Slight(A) None Seen 07/25/2024 9:24 PM CDT [facility] Sickle Cells Slight(A) None Seen 07/25/2024 9:24 PM CDT [facility] Target Cells Slight(A) None Seen 07/25/2024 9:24 PM CDT [facility] Blood VASCULAR PORT AND CATHETER / Unknown Venipuncture / Unknown 07/25/2024 8:24 PM CDT 07/25/2024 8:37 PM CDT us Emanuel Chester MD LAB - BLOOD ORDERABLES Final Re sult [facility] [address] [facility], [address] [place] [phone] * (ABNORMAL) CBC with platelets and differential (07/25/2024 8:24 PM CDT) [facility] WBC Count 11.5(H) 4.0 - 11.0 10e3/uL 07/25/2024 9:24 PM CDT [facility] RBC Count 2.94(L) 3.80 - 5.20 10e6/uL 07/25/2024 9:24 PM CDT [facility] Hemoglobin 9.1(L) 11.7 - 15.7 g/dL 07/25/2024 9:24 PM CDT [facility] Hematocrit 27.1(L) 35.0 - 47.0 % 07/25/2024 9:24 PM CDT [facility] MCV 92 78 - 100 fL 07/25/2024 9:24 PM CDT [facility] MCH 31.0 26.5 - 33.0 pg 07/25/2024 9:24 PM CDT [facility] MCHC 33.6 31.5 - 36.5 g/dL 07/25/2024 9:24 PM CDT [facility] RDW 15.4(H) 10.0 - 15.0 % 07/25/2024 9:24 PM CDT [facility] Platelet Count 654(H) 150 - 450 10e3/uL 07/25/2024 9:24 PM CDT [facility] % Neutrophils 61 % 07/25/2024 9:24 PM CDT [facility] % Lymphocytes 26 % 07/25/2024 9:24 PM CDT [facility] % Monocytes 11 % 07/25/2024 9:24 PM CDT [facility] % Eosinophils 0 % 07/25/2024 9:24 PM CDT [facility] % Basophils 1 % 07/25/2024 9:24 PM CDT [facility] % Immature Granulocytes 1 % 07/25/2024 9:24 PM CDT [facility] NRBCs per 100 WBC 0 <1 /100 025 9:24 PM CDT [facility] Absolute Neutrophils 7.0 1.6 - 8.3 10e3/uL 07/25/2024 9:24 PM CDT [facility] Absolute Lymphocytes 3.0 0.8 - 5.3 10e3/uL 07/25/2024 9:24 PM CDT [facility] Absolute Monocytes 1.3 0.0 - 1.3 10e3/uL 07/25/2024 9:24 PM CDT [facility] Absolute Eosinophils 0.0 0.0 - 0.7 10e3/uL 07/25/2024 9:24 PM CDT [facility] Absolute Basophils 0.1 0.0 - 0.2 10e3/uL 07/25/2024 9:24 PM CDT [facility] Absolute Immature Granulocytes 0.1 <=0.4 10e3/uL 07/25/2024 9:24 PM CDT [facility] Absolute NRBCs 0.1 10e3/uL 07/25/2024 9:24 PM CDT [facility] Blood VASCULAR PORT AND CATHETER / Unknown Venipuncture / Unknown 07/25/2024 8:24 PM CDT 07/25/2024 8:37 PM CDT us Emanuel Chester MD LAB - BLOOD ORDERABLES Final Re sult [facility] [address] [facility], [address] [phone] * (ABNORMAL) Reticulocyte count (07/25/2024 8:24 PM CDT) Pathologist [facility] % Reticulocyte 7.0(H) 0.5 - 2.0 % 07/25/2024 8:47 PM CDT [facility] Absolute Reticulocyte 0.206(H) 0.025 - 0.095 10e6/uL 07/25/2024 8:47 PM CDT [facility] Blood VASCULAR PORT AND CATHETER / Unknown Venipuncture / Unknown 07/25/2024 8:24 PM CDT 07/25/2024 8:37 PM CDT Emanuel Chester MD LAB - BLOOD ORDERABLES Final Re sult Performing Organization Address [facility] de Phone Number LABORATORY [facility] [address] [facility], [address] [phone] * Troponin T, High Sensitivity (07/25/2024 8:24 PM CDT) [facility] Troponin T, High Sensitivity <6 <=14 ng/L 07/25/2024 9:19 PM CDT [facility] Comment: Either a High Sensitivity [...] follow-up, or urgent outpatient provocative testing. Blood VASCULAR PORT AND CATHETER / Unknown Venipuncture / Unknown 07/25/2024 8:24 PM CDT 07/25/2024 8:35 PM CDT us Emanuel Chester MD LAB - BLOOD ORDERABLES Final Re sult [facility] [address] [facility], [address] [phone] * (ABNORMAL) Comprehensive metabolic panel (07/25/2024 8:24 PM CDT) Pathologist [facility] Sodium 137 135 - 145 mmol/L 07/25/2024 9:23 PM CDT [facility] Potassium 4.2 3.4 - 5.3 mmol/L 07/25/2024 9:23 PM CDT [facility] Carbon Dioxide (CO2) 21(L) 22 - 29 mmol/L 07/25/2024 9:23 PM CDT [facility] Anion Gap 12 7 - 15 mmol/L 07/25/2024 9:23 PM CDT [facility] Urea Nitrogen 8.4 6.0 - 20.0 mg/dL 07/25/2024 9:23 PM CDT [facility] Creatinine 0.65 0.51 - 0.95 mg/dL 07/25/2024 9:23 PM CDT [facility] GFR Estimate >90 >60 mL/min/1.7 3m2 07/25/2024 9:23 PM CDT [facility] Comment:eGFR calculated 2020 CKD-EPI equation. Calcium 9.5 8.8 - 10.4 mg/dL 07/25/2024 9:23 PM CDT [facility] Chloride 104 98 - 107 mmol/L 07/25/2024 9:23 PM CDT [facility] Glucose 100(H) 70 - 99 mg/dL 07/25/2024 9:23 PM CDT [facility] Alkaline Phosphatase 115 40 - 150 U/L 07/25/2024 9:23 PM CDT [facility] AST 32 0 - 45 U/L 07/25/2024 9:23 PM CDT [facility] ALT 27 0 - 50 U/L 07/25/2024 9:23 PM CDT [facility] Protein Total 8.4(H) 6.4 - 8.3 g/dL 07/25/2024 9:23 PM CDT [facility] Albumin 4.5 3.5 - 5.2 g/dL 07/25/2024 9:23 PM CDT [facility] Bilirubin Total 1.3(H) <=1.2 mg/dL 07/25/2024 9:23 PM CDT [facility] Blood VASCULAR PORT AND CATHETER / Unknown Venipuncture / Unknown 07/25/2024 8:24 PM CDT 07/25/2024 8:35 PM CDT us Emanuel Chester MD LAB - BLOOD ORDERABLES Final Re sult [facility] [address] [facility], [address] [place] [phone] documented in this encounter Visit Diagnoses Diagnosis 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 documented in this encounter Administered Medications Inactive Administered Medications - up to 3 most recent administrations Medication Order MAR Action Action Date Dose Rate Site heparin lock flush 10 unit/mL injection 5-10 mL 5-10 mL, Intracatheter, EVERY 1 HOUR PRN, post meds or blood draw, other, to lock each port in dual implanted port, Starting on Wed07/25/24 at 2257, Flush each port lumen with the sodium chloride 0.9% flush followed by the heparin flush. MAX dose: 5 mL of heparin for each lumen heparin lock flush 100 unit/mL injection 5-10 mL 5-10 mL, Intracatheter, EVERY 28 DAYS, First dose on Wed07/25/24 at 2315, To de-access each port in dual implanted port. Flush with 10 mL NS sodium chloride 0.9% flush followed by 5 mL heparin (100 units/mL) at discharge and at least every 28 days. MAX: 5 mL per each port lumen $Given 07/25/2024 11:19 PM CDT 5 mLs hydromorphone (DILAUDID) injection 2 mg 2 mg, Intravenous, EVERY 1 HOUR PRN, severe pain, up to three doses, Starting on Wed07/25/24 at 2000 $Given 07/25/2024 10:59 PM CDT 2 mg $Given 07/25/2024 9:45 PM CDT 2 mg $Given 07/25/2024 8:36 PM CDT 2 mg lactated ringers BOLUS 1,000 mL Intravenous, 1,000 mL, ONCE, at 1,000 mL/hr, Administer over 1 Hours, On Wed07/25/24 at 2004, For 1 dose, Over tow hours $New Bag 07/25/2024 8:35 PM CDT 1,000 mLs 1000 mL/hr ondansetron (ZOFRAN) injection 8 mg 8 mg, Intravenous, ONCE, Administer over 2-5 Minutes, On Wed07/25/24 at 2004, For 1 dose $Given 07/25/2024 8:35 PM CDT 8 mg sodium chloride (PF) 0.9% PF flush 10-20 mL 10-20 mL, Intracatheter, EVERY 28 DAYS, First dose on Wed07/25/24 at 2315, To flush and lock each port in dual implanted port. Flush each port with 10 mL sodium chloride 0.9% followed by either heparin or anticoagulant citrate as ordered. Max: 10 mL per each port lumen. $Given 07/25/2024 11:18 PM CDT 10 mLs documented in this encounter Active and Recently Administered Medications Times are shown in CDT. Scheduled Medication Order 07/23/2024 07/24/2024 07/25/2024 heparin lock flush 100 unit/mL injection 5-10 mL 5-10 mL, Intracatheter, EVERY 28 DAYS, First dose on Wed07/25/24 at 2315, To de-access each port in dual implanted port. Flush with 10 mL NS sodium chloride 0.9% flush followed by 5 mL heparin (100 units/mL) at discharge and at least every 28 days. MAX: 5 mL per each port lumen 2319 ($Given - Provi nas: Oriana Marquis RN) lactated ringers BOLUS 1,000 mL (COMPLETED) Intravenous, 1,000 mL, ONCE, at 1,000 mL/hr, Administer over 1 Hours, On Wed07/25/24 at 2004, For 1 dose, Over tow hours 2034 ($New Bag - Pro vider: Jada Stein RN)2301 (Stopped - Provider: Jada Stein RN) ondansetron (ZOFRAN) injection 8 mg (COMPLETED) 8 mg, Intravenous, ONCE, Administer over 2-5 Minutes, On Wed07/25/24 at 2004, For 1 dose 2034 ($Given - Provi nas: Jada Stein RN) sodium chloride (PF) 0.9% PF flush 10-20 mL 10-20 mL, Intracatheter, EVERY 28 DAYS, First dose on Wed07/25/24 at 2315, To flush and lock each port in dual implanted port. Flush each port with 10 mL sodium chloride 0.9% followed by either heparin or anticoagulant citrate as ordered. Max: 10 mL per each port lumen. 2318 ($Given - Provi nas: Oriana Marquis RN) PRN Medication Order 07/23/2024 07/24/2024 07/25/2024 heparin lock flush 10 unit/mL injection 5-10 mL 5-10 mL, Intracatheter, EVERY 1 HOUR PRN, post meds or blood draw, other, to lock each port in dual implanted port, Starting on Wed07/25/24 at 225, Flush each port lumen with the sodium chloride 0.9% flush followed by the heparin flush. MAX dose: 5 mL of heparin for each lumen hydromorphone (DILAUDID) injection 2 mg 2 mg, Intravenous, EVERY 1 HOUR PRN, severe pain, up to three doses, Starting on Wed07/25/24 at 2000 2035 ($Given - Provi nas: Jada Stein RN)2144 ($Given - Provider: Mason Moon RN)225 ($Given - Provider: Jada Stein RN) documented in this encounter Care Teams Mortgage Or Loan Underwriter Relationship Specialty Start Date End Date Veronica Joseph MD [address] [place] [id number] PCP - General Family Medicine 06/18/24 Mor Ramsey Medical Student 04/03/24 Case Samuel MD [address] [place] [address], [address] [place] [address] Assigned Pediatric Specialist Provider 05/18/24 Juhi Benson, RN Specialty Restaurant Delivery Driver Hematology & Oncology 05/29/24 documented as of this encounter
--- OUTSIDE RECORDS SUMMARY | 2024-07-28 20:45 | XMS_ITS | Encounter Summary ---
Author Organization [facility] Address [address] [place] [address]. [place] [address] Care Team Providers Care Assembler Watch Train Name Role Phone RoxyElvirac Unavailable Unavailable Case Samuel MD Unavailable [phone] Juhi Benson RN Unavailable Unavailable Veronica Joseph MD Primary Care Provider [phone] Reason for Visit * Reason Onset Date Comments Refill Request 06/29/2024 Encounter Details Date Type Department Care Team (Late st Contact Info) Description 06/29/[address] [place] [address] Case Samuel MD [address] [place] [address] 484, [address] [place], [place] [phone] Refill Request Social History Tobacco Use Types [...] on file Legal 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 Samuel DIRECTOR COMMERCIAL SALES Reviewed: no access Send to provider: Dr. Samuel and ESTEVAN Reynaga. ORER documented in this encounter Plan of Treatment Upcoming Encounters Date Type Department Care Team (Late st Contact Info) Description 08/07/2024 7:15 AM CDT Lab [facility] [address] [phone] Case Samuel MD [address] [place] [address] 484, [address] [place] [address] 08/08/2024 8:00 AM CDT Appointment [facility] [address] [phone] Case Samuel MD [address] [place] [address] 484, [address] [place] [address] 10/30/2024 11:30 AM CDT Lab [facility] [address] [phone] Case Samuel MD [address] [place] [address], [address] [address] 10/30/2024 12:00 PM CDT Oncology Visit [facility] [address] [phone] Case Samuel MD [address] [place] [address] 484, RO[address] [address] documented as of this encounter Goals Goal [...] crisis documented in this encounter Care Teams Assembler Watch Train Relationship Specialty Start Date End Date Veronica Joseph MD [address] [place] [address] PCP - General Family Medicine 06/18/24 Mor Ramsey Medical Student 04/03/24 Case Samuel MD [address] [place] [address] 484, [address] [place] [address] Assigned Pediatric Specialist Provider 05/18/24 Juhi Benson, RN Specialty Dimensional Inspector Hematology & Oncology 05/29/24 documented as of this encounter
--- OUTSIDE RECORDS SUMMARY | 2024-07-28 20:45 | XMS_ITS | Clinical Summary ---
Author Organization [facility] Address [address] [place] [address] Care Team Providers Care Commissioner Of Conciliation Name Role Phone None Reported, Pcp Primary Care Provider Unavail able Source Comments Patient records contain information from all sites at [facility]. For routine questions regarding patient records, call [phone] during business hours, M-F 8:00 AM - 5:00 PM Central Time. Record requests for emergency care only can be directed to [phone] at any time.[facility] Allergies Active Allergy Reactions Criticality Noted Date Comments Banana Hives only, no other systemic symptoms 07/22/2024 Cashew Nut Hives only, no other systemic symptoms 07/22/2024 Latex Hives only, no other systemic symptoms 07/22/2024 Morphine Hives only, no other systemic symptoms 07/22/2024 Tramadol Hives only, no other systemic symptoms 07/22/2024 Medications hydroxyurea (Hydrea) 500 mg capsule Take 2,000 mg by mouth daily. Take at the same time each day. Active folic acid 1 mg tablet Take 1 mg by mouth daily. Active HYDROmorphone (Dilaudid) 4 mg tablet Take 4 mg by mouth every 3 (three) hours as needed for pain. Active multivitamin tablet Take 1 tablet by mouth daily. Active Encounters Date Type Department Care Team Description 07/23/2024 10:44 PM CDT - 07/24/2024 4:36 AM CDT Emergency [facility] [address] [phone] Noel Luo M.D. Hb-SS Disease (Sickle Cell) Vaso-Occlusive Pain Crisis (HCC) (Primary Dx) Discharge Disposition: Home or Self Care 07/22/2024 1:40 PM CDT - 07/22/2024 4:44 PM CDT Emergency [facility] [address] [place] [phone] Jori Malcolm M.D. Sickle Cell Disease (HCC) (Primary Dx) Discharge Disposition: Home or Self Care from Last 3 Months Social History Tobacco Use Types Packs/Day Years Used Date Smoking Tobacco: Never Smokeless Tobacco: Never Tobacco Cessation:Counseling Given: Not Answered Alcohol Use Standard Drinks/Week Comments Never 0 (1 standard drink = 0.6 oz pur e alcohol) Dental Answer Date Recorded Dental: Regular Dentist Unknown 07/23/19 25 Comments No Sex and Gender Information Value Date Recorded Sex Assigned at Not on file Legal Sex Female 1:37 PM CDT Gender Identity Not on file Sexual Orientation Not on file Last Filed Vital Signs Vital Sign Reading Time Taken Comments Blood Pressure 131/51 07/24/2024 4:15 AM CDT Pulse 76 07/24/2024 4:15 AM CDT Temperature 36.5 C (97.7 F) 07/23/2024 10:50 PM CDT Respiratory Rate 14 07/23/2024 10:50 PM CDT Oxygen Saturation 98% 07/24/2024 4:00 AM CDT Inhaled Oxygen Concentration - - Weight 52.2 kg (115 lb) 07/24/2024 4:28 AM CDT Height - - Body Mass Index - - Plan of Treatment Health Maintenance Due Date Last Done Comments HIV Screening 1994 Hepatitis C Screening 1994 Pneumococcal vaccine (0-49 y ears) (1 of 2 - PCV) 2013 Zoster Vaccines (1 of 2) 2013 DTaP,Tdap,and Td Vaccines (7 - Td or Tdap) 01/18/2017 01/18/2007, 11/20/1999, 07/18/1998, Additional history exists COVID-19 Vaccine ( - 2023-2 5 season) 2023 03/26/2023, 05/21/2021, 02/27/2021, Additional history exists Influenza Vaccine (#1) 2024 3, 01/15/2023, 04/30/2022, Additional history exists Depression Screening (Annual PHQ-2) 04/26/2024 Cervical/Vaginal Cancer Screening 01/06/2025 022 Hepatitis B Vaccines Completed 06/07/1995, 1994, 1994 IPV Vaccines Completed 11/20/1999, 06/25, 11/13/1995, Additional history exists HPV Vaccines Completed 01/24/2009, 09/24, 03/28/2008, Additional history exists Procedures Procedure Name Priority Date/Time Associated Diagnosis Comments BASIC METABOLIC PANEL, S/P STAT 07/23/2024 11:25 PM CDT RETICULOCYTES, B STAT 07/23/2024 11:2 5 PM CDT CBC WITH DIFFERENTIAL, B STAT 07/23/2024 11:25 PM CDT from Last 3 Months Results * (ABNORMAL) Reticulocytes (07/23/2024 11:25 PM CDT) Reticulocytes, B 4.78(H) 0.60 - 2.71 % 07/23/2024 11:36 PM CDT [facility] Absolute Reticulocyte 123.8(H) 30.4 - 110.9 x10(9)/L 07/23/2024 11:36 PM CDT [facility] Blood (Blood, Venous) 07/23/2024 11:25 PM CDT 07/23/2024 11:28 PM CDT us Noel Luo M.D. LAB BLOOD ADD-ON Final Resu lt [facility] [address] [place] [address], [facility] [place] [address] [phone] * (ABNORMAL) CBC with Differential, Blood (07/23/2024 11:25 PM CDT) Pathologist [facility] Hemoglobin 8.1(L) 11.6 - 15.0 g/dL 07/23/2024 11:36 PM CDT [facility] Hematocrit 24.4(L) 35.5 - 44.9 % 07/23/2024 11:36 PM CDT [facility] Erythrocytes 2.59(L) 3.92 - 5.13 x10(12)/L 07/23/2024 11:36 PM CDT [facility] MCV 94.2 78.2 - 97.9 fL 07/23/2024 11:36 PM CDT [facility] RBC Distrib Width 15.7 12.2 - 16.1 % 07/23/2024 11:36 PM CDT [facility] Platelet Count 527(H) 157 - 371 x10(9)/L 07/23/2024 11:36 PM CDT [facility] Leukocytes 15.4(H) 3.4 - 9.6 x10(9)/L 07/23/2024 11:36 PM CDT [facility] Neutrophils 8.36(H) 1.56 - 6.45 x10(9)/L 07/23/2024 11:36 PM CDT [facility] Lymphocytes 4.92(H) 0.95 - 3.07 x10(9)/L 07/23/2024 11:36 PM CDT [facility] Monocytes 1.94(H) 0.26 - 0.81 x10(9)/L 07/23/2024 11:36 PM CDT [facility] Eosinophils 0.11 0.03 - 0.48 x10(9)/L 07/23/2024 11:36 PM CDT [facility] Basophils 0.10(H) 0.01 - 0.08 x10(9)/L 07/23/2024 11:36 PM CDT [facility] Blood (Blood, Venous) 07/23/2024 11:25 PM CDT 07/23/2024 11:28 PM CDT us Noel Luo M.D. LAB BLOOD ADD-ON Final Resu lt [facility] [address] [place] [address], [place] [facility] [place] [address] [place] [address] * (ABNORMAL) Basic Metabolic Panel (07/23/2024 11:25 PM CDT) Potassium, P 3.7 3.6 - 5.2 mmol/L 07/23/2024 11:51 PM CDT [facility] Sodium, P 131(L) 135 - 145 mmol/L 07/23/2024 11:51 PM CDT [facility] Chloride, P 100 98 - 107 mmol/L 07/23/2024 11:51 PM CDT [facility] Bicarbonate, P 22 22 - 29 mmol/L 07/23/2024 11:51 PM CDT [facility] Anion Gap, P 9 7 - 15 07/23/2024 11:51 PM CDT [facility] BUN (Blood Urea Nitrogen), P 7 6 - 21 mg/dL 07/23/2024 11:51 PM CDT [facility] Creatinine 0.64 0.59 - 1.04 mg/dL 07/23/2024 11:51 PM CDT [facility] Estimated GFR (eGFR) >90 >=60 mL/min/BSA 07/23/2024 11:51 PM CDT [facility] Comment: Estimated GFR calculated using the 2020 CKD_EPI creatinine equation. Calcium, Total, P 8.5(L) 8.6 - 10.0 mg/dL 07/23/2024 11:51 PM CDT [facility] Glucose, P 100 70 - 140 mg/dL 07/23/2024 11:51 PM CDT [facility] Blood (Blood, Venous) 07/23/2024 11:25 PM CDT 07/23/2024 11:28 PM CDT us Noel Luo M.D. LAB BLOOD ADD-ON Final Resu lt [facility] [address] [place] [address], [facility] [place] [facility] [place] [address] [place] [address] from Last 3 Months Insurance [address] [id number] [facility] Care Teams Commissioner Of Conciliation Relationship Specialty Start Date End Date None Reported, Pcp PCP - General Family Medicine 07/22/24
--- OUTSIDE RECORDS SUMMARY | 2024-07-28 20:45 | XMS_ITS | Encounter Summary ---
Author Organization [facility] Address [address] [place] [address] Care Team Providers Care Validation Scientist Name Role Phone RoxyElvirac Unavailable Unavailable Case Samuel MD Unavailable [phone] Juhi Benson RN Unavailable Unavailable Veronica Joseph MD Primary Care Provider [phone] Reason for Visit * Reason Comments Sickle Cell Pain Crisis Encounter Details Date Type Department Care Team (Late st Contact Info) Description 07/26/2024 8:38 PM CDT - 07/27/2024 1:05 AM CDT [facility] Department [address] [place] [phone] Abdelrahman Goddard MD [address] [place], [place] [phone] Payal Arriaga DO [address] [place] [id number] Sickle cell disease with crisis (H) Discharge [...] on file 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 Gender Identity Not on file Sexual Orientation Not on file documented as of this encounter Last Filed Vital Signs Vital Sign Reading Time Taken Comments Blood Pressure 94/51 07/26/2024 8:34 PM CDT Pulse 91 07/26/2024 8:34 PM CDT Temperature 36.7 C (98.1 F) 07/26/2024 8:34 PM CDT Respiratory Rate 18 07/26/2024 8:34 PM CDT Oxygen Saturation 98% 07/26/2024 8:34 PM CDT Inhaled Oxygen Concentration - - Weight - - Height - - Body Mass Index - - documented in this encounter Discharge Instructions * Discharge Instructions* Abdelrahman Goddard MD - 07/26/2024 10:29 PM CDT Here in the emergency room today you were treated for sickle cell crisis If you develop any new or worsening symptoms including but not limited chest pain, shortness of breath, fevers, chills, new pain, nausea, vomiting please return immediately to the emergency room Otherwise please follow-up with your primary care doctor in the next 1 to 2 days. * Attachments The following attachments cannot be [...] mg) by mouth daily. 40 capsule 05/29/2024 FLUoxetine (PROZAC) 20 MG capsuleIndications :Severe episode of recurrent major depressive disorder, without psychotic features (H) Take 1 capsule (20 mg) by mouth daily. 30 capsule 07/17/2024 folic acid (FOLVITE) 1 MG tabletIndications: [...] 05/01/2024 naloxone (NARCAN) 4 MG/0.1ML nasal spray [place] 1 spray (4 mg) into one nostril alternating nostrils as needed for opioid reversal (for opiate overdose if not breathing and unconscious. have your family member watch video on how to use/read information sheet). every 2-3 minutes until assistance arrives 2 each 06/06/2024 documented as of this encounter ED Notes * Abdelrahman Goddard MD - 07/26/2024 8:40 PM CDT ED Provider Note [facility] History Chief Complaint Patient presents with Sickle Cell Pain Crisis The history is provided by the patient and medical records. Gianna Hernández is a 29 year old female with history of sickle cell disease SS-type, acute chestsyndrome, and prior PE on Eliquis who presents to the ED with sickle cell pain. She has been seen in the ED 6x over the past week, most recently yesterday reporting 2 days of back, leg, and chest pain. Care plan was followed with improvement in symptoms so she was discharged. She returns today reporting ongoing chest, leg, and back pain. She states her chest pain is mild and nothing like she experienced with ACS. She denies cough, fever, or shortness of breath. This does feel like her typical sickle cell pain, but she notes it has been a rough week which she attributes to weather changes. 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 Physical Exam BP: 94/51 Pulse: 91 Temp: 98.1 ??F (36.7 ??C) Resp: 18 SpO2: 98 % Physical Exam Vitals and nursing note reviewed. Constitutional: General: She is not in acute distress. Appearance: Normal appearance. She is not diaphoretic. HENT: Head: Atraumatic. Mouth/Throat: Mouth: Mucous membranes are moist. Eyes: General: No scleral icterus. Conjunctiva/sclera: Conjunctivae normal. Cardiovascular: Rate and Rhythm: Normal rate. Heart sounds: Normal heart sounds. Pulmonary: Effort: No respiratory distress. Breath sounds: Normal breath sounds. Abdominal: General: Abdomen is flat. Musculoskeletal: General: No swelling, tenderness, deformity or signs of injury. Cervical back: Neck supple. Right lower leg: No edema. Left lower leg: No edema. Skin: General: Skin is warm. Findings: No rash. Neurological: Mental Status: She is alert. ED Course, Procedures, & Data Procedures No results found for any visits on 07/26/24. Medications - No data to display Labs [...] (see separate area of note for details) strong consideration of a test (CBC, reticulocyte count, BMP, chest x-ray) that was ultimately deferred ordering and/or review of 3+ test(s) in this encounter (see separate area of note for details) The patient's management necessitated high complexity management. Assessment & Plan test read is negative Discussed labs including CBC, reticulocyte count, BMP with patient and she reports that she does not think she needs repeat labs today As patient had pain that is similar to her chronic sickle cell pain, and believes that the weather is prompting her frequent ER visits this week, we decided to defer lab work at this point menstrual start treating sickle cell pain. Although I considered a chest x-ray, patient without fevers, chills, shortness of breath, and she feels like pain she has is similar to the pain she has had before with sickle cell pain and does not want further workup at this point Ordered 1 dose of pain meds per patient's pain management protocol. As well as fluids and antinausea medicine. Time of signout to incoming physician Dr. Arriaga patient pending her final dose of pain medications, and reassessment before likely discharge home I have reviewed the nursing notes. I have reviewed the findings, diagnosis, plan and need for follow up with the patient. New Prescriptions No medications on file Final diagnoses: None Beronica Long, am serving as a trained chief medical officer to document services personally performed by Abdelrahman Goddard MD, based on the provider's statements to me. IAbdelrahman MD, was physically present and have reviewed and verified the accuracy of this note documented by Beronica Gary. Abdelrahman Goddard MD [facility] 07/26/2024 Abdelrahman Goddard MD 07/26/24 2311 * Lavinia Ozuna RN - 07/26/2024 8:33 PM CDT Pt ambulatory to triage c/o sickle cell crisis started yesterday. Pt states she has a 9/10 chest pain. documented in this encounter Plan of Treatment Upcoming Encounters Date Type Department Care Team (Late st Contact Info) Description 08/07/2024 7:15 AM CDT Lab [facility] [address] [phone] Case Samuel MD [address] [place] [address] 484, [address] [place], [place] [phone] 08/08/2024 8:00 AM CDT Appointment [facility] [address] [phone] Case Samuel MD [address] [place] [address] 484, [address] [place] [address] 10/30/2024 11:30 AM CDT Lab [facility] [address] [phone] Case Samuel MD [address] [place] [address] 484, [address] [place] [address] 10/30/2024 12:00 PM CDT Oncology Visit [facility] [address] [phone] Case Samuel MD [address] [facility] 484, [address] [place], [place] [address] documented as of this encounter Goals Goal [...] Procedure Name Priority Date/Time Associated Diagnosis Comments HCG QUALITATIVE URINE STAT 07/26/2024 9:50 PM CDT documented in this encounter Results * HCG qualitative urine (07/26/2024 9:50 PM CDT) hCG Urine Qualitative Negative Negative JARET 07/26/2024 10:21 PM CDT [facility] Comment:This test is for scr eening purposes. Results should be interpreted along with the clinical picture. Confirmation testing is available if warranted by ordering [id number], HCG Quantitative . Urine MID-STREAM URINE SPECIMEN / Unknown Non-blood Collection / Unknown 07/26/2024 9:50 PM CDT 07/26/2024 10:12 PM CDT Abdelrahman Goddard MD LAB - URINE ORDERABLES Final R esult [facility] [address] [facility] [address], Room [address] [place] [id number] documented in this encounter Visit Diagnoses Diagnosis Sickle cell disease with crisis (H) Hb-SS disease with crisis documented in this encounter Administered Medications Inactive Administered Medications - up to 3 most recent administrations Medication Order MAR Action Action Date Dose Rate Site heparin lock flush 100 unit/mL injection 100 Units 100 Units, Intravenous, ONCE, On Wed07/27/24 at 0045, For 1 dose $Given 07/27/2024 1:00 AM CDT 100 Units hydromorphone (DILAUDID) injection 2 mg 2 mg, Intravenous, ONCE, On Wed07/26/24 at 0, For 1 dose $Given 07/26/2024 10:02 PM CDT 2 mg hydromorphone (DILAUDID) injection 2 mg 2 mg, Intravenous, ONCE, On Wed07/26/24 at 2315, For 1 dose $Given 07/26/2024 11:27 PM CDT 2 mg hydromorphone (DILAUDID) injection 2 mg 2 mg, Intravenous, ONCE, On Wed07/27/24 at 0030, For 1 dose $Given 07/27/2024 12:38 AM CDT 2 mg lactated ringers BOLUS 500 mL Intravenous, 500 mL, ONCE, at 500 mL/hr, Administer over 1 Hours, On Wed07/26/24 at 0, For 1 dose $New Bag 07/26/2024 10:03 PM CDT 500 mLs 500 mL/hr ondansetron (ZOFRAN) injection 4 mg 4 mg, Intravenous, ONCE, Administer over 2-5 Minutes, On Wed07/26/24 at 0, For 1 dose $Given 07/26/2024 10:02 PM CDT 4 mg documented in this encounter Active and Recently Administered Medications Times are shown in CDT. Scheduled Medication Order 07/25/2024 07/26/2024 07/27/2024 heparin lock flush 100 unit/mL injection 100 Units (COMPLETED) 100 Units, Intravenous, ONCE, On Wed07/27/24 at 0045, For 1 dose 0100 ($Given - Provi nas: Danica Mccloud RN) hydromorphone (DILAUDID) injection 2 mg (COMPLETED) 2 mg, Intravenous, ONCE, On Wed07/26/24 at 2120, For 1 dose 220 ($Given - Provider: Danica Mccloud, SOFIA) hydromorphone (DILAUDID) injection 2 mg (COMPLETED) 2 mg, Intravenous, ONCE, On Wed07/26/24 at 2315, For 1 dose 2327 ($Given - Provider: Danica Mccloud, SOFIA) hydromorphone (DILAUDID) injection 2 mg (COMPLETED) 2 mg, Intravenous, ONCE, On Citlali 07/27/24 at 0030, For 1 dose 0038 ($Given - Provi nas: Danica Mccloud, SOFIA) lactated ringers BOLUS 500 mL (COMPLETED) Intravenous, 500 mL, ONCE, at 500 mL/hr, Administer over 1 Hours, On Wed07/26/24 at 0, For 1 dose 2203 ($New Bag - Provider: Danica Mccloud RN)2310 (Stopped - Provider: Danica Mccloud RN) ondansetron (ZOFRAN) injection 4 mg (COMPLETED) 4 mg, Intravenous, ONCE, Administer over 2-5 Minutes, On Wed07/26/24 at 2120, For 1 dose 2201 ($Given - Provider: Danica Mccloud, SOFIA) documented in this encounter Care Teams Validation Scientist Relationship Specialty Start Date End Date Veronica Joseph MD [address] [place] [address] PCP - General Family Medicine 06/18/24 Mor Ramsey Medical Student 04/03/24 Case Samuel MD [address] [place] [address] 484, [address] [place] [address] Assigned Pediatric Specialist Provider 05/18/24 Juhi Benson, SOFIA Specialty Agency Development Manager Hematology & Oncology 05/29/24 documented as of this encounter
--- OUTSIDE RECORDS SUMMARY | 2024-07-28 20:45 | XMS_ITS | Encounter Summary ---
Author Organization [facility] Address [address] [place] [address] Care Team Providers Care Light Fixture Servicer Name Role Phone None Reported, Pcp Primary Care Provider Unavail able Reason for Visit * Reason Comments Sickle Cell Pain Crisis Sickle cell pain crisis of pain in the back of her legs for the past two days. Was seen yesterday, came in tonight as it has not gotten better. Encounter Details Date Type Department Care Team (Late st Contact Info) Description 07/23/2024 10:44 PM CDT - 07/24/2024 4:36 AM CDT Emergency [place] [facility] [address] [place] [phone] Noel Luo M.D. [address] [place] [phone] Hb-SS Disease (Sickle Cell) Vaso-Occlusive Pain Crisis (HCC) (Primary Dx) Discharge Disposition: Home or Self Care Social History Tobacco Use Types Packs/Day Years Used Date Smoking Tobacco: Never Smokeless Tobacco: Never Alcohol Use Standard Drinks/Week Comments Never 0 [...] encounter Discharge Instructions * Discharge Instructions* Noel Luo M.D. - 07/24/2024 4:16 AM CDT Sorry you have been dealing with this. Please reach out to your care team as soon as possible to see if they recommend any changes to your home pain regimen. Please reseek care sooner if you develop difficulty breathing, chest pain, or fevers. * Attachments The following attachments cannot be sent through Care Everywhere. * Living With Sickle Cell Disease (Iranian) documented in this encounter Medications at Time of Discharge folic acid 1 mg tablet Take 1 mg by mouth daily. HYDROmorphone (Dilaudid) 4 mg tablet Take 4 mg by mouth every 3 (three) hours as needed for pain. hydroxyurea (Hydrea) 500 mg capsule Take 2,000 mg by mouth daily. Take at the same time each day. multivitamin tablet Take 1 tablet by mouth daily. documented as of this encounter ED Notes * Noel Luo M.D. - 07/23/2024 11:06 PM CDT EMERGENCY MEDICINE CHIEF COMPLAINT Sickle Cell Pain Crisis (Sickle cell pain crisis of pain in the back of her legs for the past two days. Was seen yesterday, came in tonight as it has not gotten better. ) INITIAL VITAL SIGNS Initial Vitals Temperature 07/23/24 2250 36.5 ??C Pulse Rate 07/23/24 2250 80 Heart Rate -- Resp Rate 07/23/24 2250 14 Blood Pressure 07/23/24 2250 125/86 SpO2 07/23/24 2250 100 % Pain Score 07/23/24 2251 9 ASSESSMENT AND PLAN Gianna Hernández is a 29 y.o. female with sickle cell disease who presents for evaluation ofongoing sickle cell acute pain crisis. For the past 3 days, she has noted pain in her legs as well as her back. It is not in the midline of her back but in the muscles on the sides. She denies any fevers, rash, chest pain, or shortness of breath with this. She is taking hydromorphone 4 mg orally athome without significant relief. On exam, there is no midline C, T, or L spine tenderness to palpation. She is able to range her extremities. Her lungs are clear to auscultation in the anterior lindsay without tachycardia. 29-year-old female with sickle cell disease who presents for evaluation of ongoing acute pain crisis. She feels like this is one of her normal acute pain crisis. Vital signs are normal. I reviewed her care plan from the [facility] and ordered this for her. We will obtain basic labs to evaluate for any evidence of aplastic crisis although I have a lower suspicion for this given symptoms. I do not clinically suspect CVA, acute chest syndrome, or hepatic crisis. There is no chest pain or shortness of breath, she is anticoagulated, and I do not suspect PE. I do not clinically suspect infection at this time. Patient's symptoms improved with treatment, and she was able to sleep. She was discharged to home. ED Course as of 07/24/24618Jul 24, 2024 0019 Hemoglobin is at baseline with checks earlier this month of 8.8 and 8.0. Reticulocytes are increased as well which is reassuring. Final Diagnoses: as of 07/24/24618 Hb-SS Disease (Sickle Cell) Vaso-Occlusive Pain Crisis (HCC) I reviewed the following external records: office records I reviewed the following external records: outside ED records Noel Luo M.D. 07/24/24619 documented in this encounter Plan of Treatment Not on file documented as of this encounter Procedures Procedure Name Priority Date/Time Associated Diagnosis Comments RETICULOCYTES, B STAT 07/23/2024 11:2 5 PM CDT CBC WITH DIFFERENTIAL, B STAT 07/23/2024 11:25 PM CDT BASIC METABOLIC PANEL, S/P STAT 07/23/2024 11:25 PM CDT documented in this encounter Results * (ABNORMAL) Basic Metabolic Panel (07/23/2024 11:25 [...] M.D. LAB BLOOD ADD-ON Final Resu lt [facility] [address] [place] [address], [facility] [place] [address] [place] [address] * (ABNORMAL) Reticulocytes (07/23/2024 11:25 PM CDT) [facility] Reticulocytes, B 4.78(H) 0.60 - 2.71 % 07/23/2024 11:36 PM CDT [facility] Absolute Reticulocyte 123.8(H) 30.4 - 110.9 x10(9)/L 07/23/2024 11:36 PM CDT [facility] Blood (Blood, Venous) 07/23/2024 11:25 PM CDT 07/23/2024 11:28 PM CDT us Noel Luo M.D. LAB BLOOD ADD-ON Final Resu lt [facility] [address] [place] [address], [facility] [place] [address] [place] [address] * (ABNORMAL) CBC with Differential, Blood (07/23/2024 11:25 PM CDT) [facility] Hemoglobin 8.1(L) 11.6 - 15.0 g/dL 07/23/2024 [...] M.D. LAB BLOOD ADD-ON Final Resu lt [facility] [address] [place] [address], [facility] [place] [address] [place] [phone] documented in this encounter Visit Diagnoses Diagnosis Hb-SS Disease (Sickle Cell) Vaso-Occlusive Pain Crisis (HCC)- Primary documented in this encounter Administered Medications Inactive Administered Medications - up to 3 most recent administrations Medication Order MAR Action Action Date Dose Rate Site diphenhydrAMINE capsule 25 mg (BenadryL) 25 mg, oral, Once, On 07/23/24 at 2305, For 1 dose Given 07/23/2024 11:32 PM CDT 25 mg heparin flush 100 Units 100 Units, intra-catheter, As needed, line care, Starting on 07/24/24 at 0426 heparin flush 500-1,000 Units 500-1,000 Units, intra-catheter, During hospitalization, line care, Prior to discharge, Starting on Wed07/24/24 at 0429, For 1 dose, Implanted Vascular Access Device (IVAD) Venous Non-Valved: flush 5 mL (500 units) per port/lumen following saline flush prior to discharge. Given 07/24/2024 4:32 AM CDT 500 Units HYDROmorphone injection 2 mg (Dilaudid) 2 mg, intravenous, Every 1 hour PRN, severe pain or score 7-10 of 10, Starting on Wed07/23/24 at 2241, For 3 doses Given 07/24/2024 1:35 AM CDT 2 mg Given 07/24/2024 12:32 AM CDT 2 mg Given 07/23/2024 11:32 PM CDT 2 mg Lactated Ringer's bolus 1,000 mL 1,000 mL, intravenous, at 1,000 mL/hr, Administer over 1 Hours, Once, On Wed07/23/24 at 2305, For 1 dose New Bag 07/23/2024 11:27 PM CDT 1,000 mL 1000 mL/hr ondansetron (PF) injection 8 mg (Zofran) 8 mg, intravenous, Once, On Wed07/23/24 at 2305, For 1 dose Given 07/23/2024 11:32 PM CDT 8 mg sodium chloride 0.9 % injection 10-20 mL 10-20 mL, intravenous, During hospitalization, line care, Prior to discharge, Starting on Wed07/24/24 at 0429, For 1 dose, Implanted Vascular Access Device (IVAD) Venous Non-Valved: Flush 10 mL per port/lumen followed by heparin flush prior to discharge. documented in this encounter Active and Recently Administered Medications Times are shown in CDT. Scheduled Medication Order 07/22/2024 07/23/2024 07/24/2024 diphenhydrAMINE capsule 25 mg (BenadryL) (COMPLETED) 25 mg, oral, Once, On Wed07/23/24 at 2305, For 1 dose 2332 (Given - Provider: Sabrina La R.N.) Lactated Ringer's bolus 1,000 mL (COMPLETED) 1,000 mL, intravenous, at 1,000 mL/hr, Administer over 1 Hours, Once, On Wed07/23/24 at 2305, For 1 dose 2327 (New Bag - Provider: Sabrina La R.N.) 0041 (Stopped - Provider: Sabrina La R.N.) ondansetron (PF) injection 8 mg (Zofran) (COMPLETED) 8 mg, intravenous, Once, On 07/23/24 at 2305, For 1 dose 2332 (Given - Provider: Sabrina La R.N.) PRN Medication Order 07/22/2024 07/23/2024 07/24/2024 heparin flush 100 Units 100 Units, intra-catheter, As needed, line care, Starting on Wed07/24/24 at 0426 0430 (Not Given - Provider: Sabrina La R.N. - Reason: Discontinued) heparin flush 500-1,000 Units (COMPLETED) 500-1,000 Units, intra-catheter, During hospitalization, line care, Prior to discharge, Starting on Wed07/24/24 at 0429, For 1 dose, Implanted Vascular Access Device (IVAD) Venous Non-Valved: flush 5 mL (500 units) per port/lumen following saline flush prior to discharge. 0432 (Given - Provid er: Sabrina La R.N.) HYDROmorphone injection 2 mg (Dilaudid) (COMPLETED) 2 mg, intravenous, Every 1 hour PRN, severe pain or score 7-10 of 10, Starting on 07/23/24 at 2241, For 3 doses 2332 (Given - Provider: Sabrina La R.N.) 0032 (Given - Provider: Sabrina La R.N.)0135 (Given - Provider: Sabrina La R.N.) sodium chloride 0.9 % injection 10-20 mL 10-20 mL, intravenous, During hospitalization, line care, Prior to discharge, Starting on Wed07/24/24 at 0429, For 1 dose, Implanted Vascular Access Device (IVAD) Venous Non-Valved: Flush 10 mL per port/lumen followed by heparin flush prior to discharge. documented in this encounter Care Teams Light Fixture Servicer Relationship Specialty Start Date End Date None Reported, Pcp PCP - General Family Medicine 07/22/24 documented as of this encounter
--- OUTSIDE RECORDS SUMMARY | 2024-07-28 20:45 | XMS_ITS | Encounter Summary ---
Author Organization [facility] Address [address] [place] [address]. [place] [address] Care Team Providers Care Channel Director Name Role Phone RoxyElvirac Unavailable Unavailable Case Samuel MD Unavailable [phone] Juhi Benson RN Unavailable Unavailable Veronica Joseph MD Primary Care Provider [phone] Reason for Visit * Reason Comments Sickle Cell Pain Crisis Chest Pain Encounter Details Date Type Department Care Team ([facility] st Contact Info) Description 07/27/2024 7:12 PM CDT - 07/27/2024 11:16 PM CDT Emergency [facility] [address] [place] [phone] Payal Arriaga, [address] [address] Sickle cell pain crisis (H); Chest pain, unspecified type; Acute bilateral thoracic back pain Discharge Disposition: Home or Self Care [...] file 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 Gender Identity Not on file Sexual Orientation Not on file documented as of this encounter Last Filed Vital Signs Vital Sign Reading Time Taken Comments Blood Pressure 102/68 07/27/2024 7:08 PM CDT Pulse 85 07/27/2024 7:08 PM CDT Temperature 37.1 C (98.8 F) 07/27/2024 7:08 PM CDT Respiratory Rate 16 07/27/2024 7:08 PM CDT Oxygen Saturation 100% 07/27/2024 8:17 PM CDT Inhaled Oxygen Concentration - - Weight 52.2 kg (115 lb) 07/27/2024 7:07 PM CDT Height 154.9 cm (5' 1) 07/27/2024 7:07 PM CDT Body Mass Index 21.73 07/27/2024 7:07 PM CDT documented in this encounter Discharge Instructions * Discharge Instructions* Payal Arriaga, DO - 07/27/2024 10:48 PM CDT Please return if your symptoms return. Please follow-up with hematology for exchange transfusion next week documented in this encounter Medications at Time [...] 05/01/2024 naloxone (NARCAN) 4 MG/0.1ML nasal spray [place] 1 spray (4 mg) into one nostril alternating nostrils as needed for opioid reversal (for opiate overdose if not breathing and unconscious. have your family member watch video on how to use/read information sheet). every 2-3 minutes until assistance arrives 2 each 06/06/2024 documented as of this encounter ED Notes * Hortencia Osman RN - 07/27/2024 7:33 PM CDT Bed: [facility] Expected date: Expected time: Means of arrival: Comments: 1 * Payal Arriaga DO - 07/27/2024 7:20 PM CDT Images from the original note were not included. [facility] ([facility]) 07/27/24 History Chief Complaint Patient presents with Sickle Cell Pain Crisis Chest Pain HPI Gianna Hernández is a 29 year old female who with past medical history of sickle cell disease SS-type, acute chest syndrome, and prior PE on Eliquis who presents to the ED with sickle cell pain. Patient has been seen here several times in the last 2 weeks for the same. Patient is describing the exact same pain as all the other visits. It is in her anterior middle chest and in her back. Patient states that she has had acute chest syndrome in the past and this does not feel like acute chest syndrome. She is denying any fevers chills lightheadedness syncope cough nasal congestion sore throat nausea vomiting abdominal pain diarrhea lower extremity pain or swelling numbness tingling weakness incontinence or retention. Patient denies any trauma. Has been taking hydroxyurea and Dilaudid at home. She called the hematology clinic this morning and was unable to get an acute appointment. They did schedule her for a transfusion exchange next week. 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 Physical Exam BP: 102/68 Pulse: 85 Temp: 98.8 ??F (37.1 ??C) Resp: 16 Height: 154.9 cm (5' 1) Weight: 52.2 kg (115 lb) SpO2: 98 % Physical Exam Gen: Awake and alert, interactive and in no acute distress Head: Atraumatic Eyes: Anicteric, EOMI, YESSI Neck: Supple, non-tender, no adenopathy Chest: Mild diffuse anterior tenderness to palpation, no crepitus CV: RRR, no murmurs Pulm: CTAB with good aeration, no retractions or accessory muscle use, no wheezing/ronchi/crackles Abd: Soft, NTND, no organomegaly Back: No midline ttp, no CVAT, mildly tender to palpation in the thoracic paraspinal muscles bilaterally Ext: Full ROM w/o pain, no joint effusions, no edema Derm: No rash, skin warm and dry Neuro: Moves all extremities appropriately. Affect, activity, and interaction appropriate Vasc: Symmetric pulses, capillary refill < 2 sec ED Course, Procedures, & Data Procedures EKG Interpretation: Interpreted by Payal Arriaga DO Time reviewed: 1929 Symptoms at time of EKG: Chest pain back pain Rhythm: normal sinus Rate: normal [place]: normal Ectopy: none Conduction: normal ST Segments/ T Waves: No ST-T wave changes Q Waves: none Comparison to prior: Unchanged Clinical Impression: normal EKG Results for orders placed or performed during the hospital encounter of 07/27/24 EKG 12-lead, tracing only Status: None (Preliminary result) Result Value Ref Range Systolic Blood Pressure mmHg Diastolic Blood Pressure mmHg Ventricular Rate 81 BPM Atrial Rate 81 BPM NM Interval 144 ms QRS Duration 74 ms QT 358 ms QTc 415 ms P [place] 34 degrees R AXIS 68 degrees T [place] 45 degrees Interpretation ECG Sinus rhythm Normal ECG Results for orders placed or performed during the hospital encounter of 07/26/24 HCG qualitative urine Status: Normal Result Value Ref Range hCG Urine Qualitative Negative Negative Medications ondansetron (ZOFRAN) injection 4 mg (4 mg Intravenous $Given 07/27/242005) hydromorphone (DILAUDID) injection 2 mg (2 mg Intravenous $Given 07/27/242227) lactated ringers BOLUS 1,000 mL (0 mLs Intravenous Stopped 07/27/242119) Labs Ordered and Resulted from Time of [...] (a parenteral controlled substance). Assessment & Plan Vital signs stable. Based on my history and exam I do not have any concern for acute chest syndromeoccult infectious process pneumothorax ACS or PE. After 3 doses of Dilaudid Zofran and fluids patient is feeling improved. She would like to go home. She remains in stable condition. I have reviewed the patient's discharge instructions with the patient and any family members verbally at the bedside, and I provided a written summary of the important points. I reviewed medications,including common side effects and activity precautions with the patient. They verbalized understanding of the discharge instructions, and I answered any questions. They are cautioned about warning symptoms that require a return visit to the emergency department, and I have reviewed follow up instructions as documented in the discharge instructions. The patient expresses understanding and is comfortable with the discharge plan. The patient is discharged in stable condition. This chart has been created utilizing voice recognition software. It has been edited for major content, but may still contain small errors inherent in the voice recognition process. I have reviewed the nursing notes. I have reviewed the findings, diagnosis, plan and need for follow up with the patient. New Prescriptions No medications on file Final diagnoses: Sickle cell pain crisis (H) Chest pain, unspecified type Acute bilateral thoracic back pain Payal Charlton [facility] 07/27/2024 Payal Arriaga DO 07/27/24 [id number] * Clau Lemus RN - 07/27/2024 7:05 PM CDT Ambulatory to triage for sickle cell pain in chest that began today. No other complaints. documented in this encounter Plan of Treatment Upcoming Encounters Date Type Department Care Team (Late st Contact Info) Description 08/07/2024 7:15 AM CDT Lab [facility] [address] [phone] Case Samuel MD [address] [place] [address], [address] [address] 08/08/2024 8:00 AM CDT Appointment [facility] [address] [phone] Case Samuel MD [address] [place] [address], [address] [address] 10/30/2024 11:30 AM CDT Lab [facility] [address] [phone] Case Samuel MD [address] [place] [address], [address] [address] 10/30/2024 12:00 PM CDT Oncology Visit [facility] [address] [phone] Case Samuel MD [address] [place] [address], [address] [address] documented as of this encounter Goals Goal Patient Goal Type Associated Problems Recent Progress Patient-Stated? Author Pain Management General On track( 025 2:58 PM CDT) Yes Juhi Benson, RN Note: Goal Statement: [...] Procedure Name Priority Date/Time Associated Diagnosis Comments EKG 12-LEAD, TRACING ONLY STAT 07/27/2024 7:16 PM CDT documented in this encounter Results * EKG 12-lead, tracing only (07/27/2024 7:16 PM CDT) Systolic Blood Pressure mmHg RADIOLOGY RESULTS Diastolic Blood Pressure mmHg RADIOLOGY RESULTS Ventricular Rate 81 BPM RAD IOLOGY RESULTS Atrial Rate 81 BPM RADIOLOG Y RESULTS NM Interval 144 ms RADIOLOG Y RESULTS QRS Duration 74 ms RADIOLO GY RESULTS QT 358 ms RADIOLOGY RESULTS QTc 415 ms RADIOLOGY RESULTS P [place] 34 degrees RADIOLOGY RESULTS R AXIS 68 degrees RADIOLOGY RESULTS T [place] 45 degrees RADIOLOGY RESULTS Interpretation ECG Sinus rhythm Normal ECG Unconfirmed report - interpretation of this ECG is computer generated - see medical record for final interpretation Confirmed by - EMERGENCY ROOM, PHYSICIAN ([id number]), loan expeditor NEGRA ASTORGA ([id number]) on 07/28/2024 6:48:17 AM RADIOLOGY RESULTS 07/27/2024 7:16 PM CDT 07/28/2024 6:48 AM CDT Payal Arriaga DO ECG ORDERABLES Edited Result - Final RADIOLOGY RESULTS documented in this encounter Visit Diagnoses Diagnosis 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 Chest pain, unspecified type Acute bilateral thoracic back pain documented in this encounter Administered Medications Inactive Administered Medications - up to 3 most recent administrations Medication Order MAR Action Action Date Dose Rate Site heparin lock flush 100 unit/mL injection 100 Units 100 Units, Intravenous, ONCE, On Wed07/27/24 at 2300, For 1 dose $Given 07/27/2024 11:07 PM CDT 500 Units hydromorphone (DILAUDID) injection 2 mg 2 mg, Intravenous, EVERY 1 HOUR PRN, severe pain, Starting on Citlali 4/3/25 at 1921, For 3 doses $Given 07/27/2024 10:28 PM CDT 2 mg $Given 07/27/2024 9:20 PM CDT 2 mg $Given 07/27/2024 8:09 PM CDT 2 mg lactated ringers BOLUS 1,000 mL Intravenous, 1,000 mL, ONCE, at 1,000 mL/hr, Administer over 1 Hours, On Citlali 07/27/24 at 1925, For 1 dose $New Bag 07/27/2024 8:11 PM CDT 1,000 mLs 1000 mL/hr ondansetron (ZOFRAN) injection 4 mg 4 mg, Intravenous, EVERY 30 MIN PRN, nausea, vomiting, Administer over 2-5 Minutes, Starting on [place]ali 07/27/24 at 1921, For 3 doses, May repeat in 30 minutes as needed, up to 3 doses. $Given 07/27/2024 8:06 PM CDT 4 mg documented in this encounter Active and Recently Administered Medications Times are shown in CDT. Scheduled Medication Order 07/25/2024 07/26/2024 07/27/2024 heparin lock flush 100 unit/mL injection 100 Units (COMPLETED) 100 Units, Intravenous, ONCE, On [place] 07/27/24 at 2300, For 1 dose 2307 ($Given - Provi nas: Lavinia Ozuna RN) lactated ringers BOLUS 1,000 mL (COMPLETED) Intravenous, 1,000 mL, ONCE, at 1,000 mL/hr, Administer over 1 Hours, On [place] 07/27/24 at 1925, For 1 dose 2010 ($New Bag - Pro vider: Lavinia Ozuna RN)2119 (Stopped - Provider: Lavinia Ouzna RN) PRN Medication Order 07/25/2024 07/26/2024 07/27/2024 hydromorphone (DILAUDID) injection 2 mg (COMPLETED) 2 mg, Intravenous, EVERY 1 HOUR PRN, severe pain, Starting on [place] 07/27/24 at 1921, For 3 doses 2008 ($Given - Provi nas: Lavinia Ozuna RN)2119 ($Given - Provider: Tato Franks RN)2227 ($Given - Provider: Lavinia Ozuna RN) ondansetron (ZOFRAN) injection 4 mg 4 mg, Intravenous, EVERY 30 MIN PRN, nausea, vomiting, Administer over 2-5 Minutes, Starting on [place] 07/27/24 at 1921, For 3 doses, May repeat in 30 minutes as needed, up to 3 doses. 2005 ($Given - Provi nas: Lavinia Ozuna RN) documented in this encounter Care Teams Channel Director Relationship Specialty Start Date End Date Veronica Joseph MD [address] [place] [address] PCP - General Family Medicine 06/18/24 Mor Ramsey Medical Student 04/03/24 Case Samuel MD [address] [place] [address], [address] [place] [address] Assigned Pediatric Specialist Provider 05/18/24 Juhi Benson, RN Specialty Director Family Hematology & Oncology 05/29/24 documented as of this encounter
--- OUTSIDE RECORDS SUMMARY | 2024-07-28 20:45 | XMS_ITS | Encounter Summary ---
Author Organization [place] Address [address] [place] [address]. 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 Gender Identity Not on file Sexual Orientation Not on file documented as of this encounter Plan of Treatment Upcoming Encounters Date Type Department Care Team (Late st Contact Info) Description 08/07/2024 7:15 AM CDT Lab [facility] Cancer [address] [phone] Case Samuel MD [address] [place] [address], ROOM [address] [address] 08/08/2024 8:00 AM CDT Appointment [facility] Advanced Treatment [address] [phone] Case Samuel MD [address] [place] [address], ROOM [address] [address] 10/30/2024 11:30 AM CDT Lab [facility] Cancer [address] [phone] Case Samuel MD [address] [place] [address], ROOM [address] [address] 10/30/2024 12:00 PM CDT Oncology Visit [facility] Cancer [address] [phone] Case Samuel MD [address] [facility] 484, [address] [place] [address] documented as of this encounter Goals Goal [...] on filedocumented in this encounter Care Teams Can Runner Relationship Specialty Start Date End Date Veronica Joseph MD [address] [place] [address] PCP - General Family Medicine 06/18/24 Mor Ramsey Medical Student 04/03/24 Case Samuel MD [address] [facility] 484, [address] [place] [address] Assigned Pediatric Specialist Provider 05/18/24 Juhi Benson, RN Specialty Limited Radiology Technician Hematology & Oncology 05/29/24 documented as of this encounter
--- OUTSIDE RECORDS SUMMARY | 2024-07-28 20:45 | XMS_ITS | Encounter Summary ---
Author Organization [place] Address [address] [place] [address]. 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 Gender Identity Not on file Sexual Orientation Not on file documented as of this encounter Plan of Treatment Upcoming Encounters Date Type Department Care Team (Late st Contact Info) Description 08/07/2024 7:15 AM CDT Lab [facility] Cancer [address] [phone] Case Samuel MD [address] [place] [address], ROOM [address] [address] 08/08/2024 8:00 AM CDT Appointment [facility] Advanced Treatment [address] [phone] Case Samuel MD [address] [place] [address], ROOM [address] [address] 10/30/2024 11:30 AM CDT Lab [facility] Cancer [address] [phone] Case Samuel MD [address] [place] [address], ROOM [address] [address] 10/30/2024 12:00 PM CDT Oncology Visit [facility] Cancer [address] [phone] Case Samuel MD [address] [facility] 484, [address] [place] [address] documented as of this encounter Goals Goal [...] filedocumented in this encounter Care Teams Corporate Communications Specialist Relationship Specialty Start Date End Date Veronica Joseph MD [address] [place] [address] PCP - General Family Medicine 06/18/24 Mor Ramsey Medical Student 04/03/24 Case Samuel MD [address] [facility] 484, [address] [place] [address] Assigned Pediatric Specialist Provider 05/18/24 Juhi Benson, RN Specialty Setup Technician Hematology & Oncology 05/29/24 documented as of this encounter
--- OUTSIDE RECORDS SUMMARY | 2024-07-28 20:45 | XMS_ITS | Encounter Summary ---
Author Organization [place] Address [address] [place] [address]. 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 Gender Identity Not on file Sexual Orientation Not on file documented as of this encounter Plan of Treatment Upcoming Encounters Date Type Department Care Team (Late st Contact Info) Description 08/07/2024 7:15 AM CDT Lab [facility] Cancer [address] [phone] Case Samuel MD [address] [place] [address], ROOM [address] [address] 08/08/2024 8:00 AM CDT Appointment [facility] Advanced Treatment [address] [phone] Case Samuel MD [address] [place] [address], ROOM [address] [address] 10/30/2024 11:30 AM CDT Lab [facility] Cancer [address] [phone] Case Samuel MD [address] [place] [address], ROOM [address] [address] 10/30/2024 12:00 PM CDT Oncology Visit [facility] Cancer [address] [phone] Case Samuel MD [address] [facility] 484, [address] [place] [address] documented as of this encounter Goals Goal [...] on filedocumented in this encounter Care Teams Treasury Associate Relationship Specialty Start Date End Date Veronica Joseph MD [address] [place] [address] PCP - General Family Medicine 06/18/24 Mor Ramsey Medical Student 04/03/24 Case Samuel MD [address] [facility] 484, [address] [place] [address] Assigned Pediatric Specialist Provider 05/18/24 Juhi Benson, RN Specialty Senior Data Warehouse Developer Hematology & Oncology 05/29/24 documented as of this encounter
--- OUTSIDE RECORDS SUMMARY | 2024-07-28 20:45 | XMS_ITS | Encounter Summary ---
Author Organization [place] Address [address] [place] [address]. [place] [address] Care Team Providers Care Wiring Technician Name Role Phone RoyxElvirac Unavailable Unavailable Case Samuel MD Unavailable [phone] Juhi Benson RN Unavailable Unavailable Veronica Joseph MD Primary Care Provider [phone] Reason for Visit * Reason Comments Sickle Cell Pain Crisis Back, chest, BLE Encounter Details Date Type Department Care Team ([facility] st Contact Info) Description 07/19/2024 2:47 AM CDT - 07/19/2024 6:48 AM CDT Emergency [facility] ED Emergency Department [address] [place] [phone] Keshia Schofield MD [address] [place] [address] Sickle cell pain crisis (H) Discharge Disposition: [...] on file 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 Gender Identity Not on file Sexual Orientation Not on file documented as of this encounter Last Filed Vital Signs Vital Sign Reading Time Taken Comments Blood Pressure 108/77 07/19/2024 3:45 AM CDT Pulse 83 07/19/2024 3:45 AM CDT Temperature 37.2 C (99 F) 07/19/2024 3:45 AM CDT Respiratory Rate 18 07/19/2024 3:45 AM CDT Oxygen Saturation 100% 07/19/2024 3:45 AM CDT Inhaled Oxygen Concentration - - Weight - - Height - - Body Mass Index - - documented in this encounter Discharge Instructions * Discharge Instructions* Keshia Schofield MD - 07/19/2024 6:13 AM CDT Thank you for your patience today. Please follow-up with your regular doctor in the next 2-3 days for further evaluation and follow-up care. Please call to schedule an appointment. Please continue your own medications. Please return to the ER if you develop any worsening of your current symptoms. It was a pleasure taking care of you today. We hope you feel better soon. documented in this encounter Medications at Time [...] 05/01/2024 naloxone (NARCAN) 4 MG/0.1ML nasal spray Voss 1 spray (4 mg) into one nostril alternating nostrils as needed for opioid reversal (for opiate overdose if not breathing and unconscious. have your family member watch video on how to use/read information sheet). every 2-3 minutes until assistance arrives 2 each 06/06/2024 documented as of this encounter ED Notes * Shauna Foster RN - 07/19/2024 2:47 AM CDT Bed: ED22 Expected date: Expected time: Means of arrival: Comments: 29YOF SICKLE CELL * Rachel Keller RN - 07/19/2024 2:38 AM CDT Pt presents c/o sickle cell pain crisis, 02/02 to the chest, back, BLE. 4mg Dilaudid around 2200 , without improvement. Pt has port and care plan here. * Keshia Schofield MD - 07/19/2024 2:38 AM CDT ED Provider Note [facility] History Chief Complaint Patient presents with Sickle Cell Pain Crisis Back, chest, BLE HPI Gianna Hernández is a 29 year old female with a history of sickle cell disease with pain crises with a care plan in place, acute chest syndrome, pulmonary embolism on Eliquis, and previous stroke who presents to the emergency department with a sickle cell pain crisis. Patient complains of bilateral leg pain and back pain that has been ongoing for the past few days. Patient states she was in theemergency department yesterday morning and reports she received pain medication and had improvementof her symptoms however states symptoms did not resolve. Patient states she was unable to get in the clinic and was doing okay at home continuing taking her oral Dilaudid and ibuprofen. Patient reports worsening pain tonight. Patient denies any fever, shortness of breath, cough, no recent illnesses. Denies any abdominal pain, nausea, vomiting. No leg weakness, dysuria, urgency, frequency. Patientstates symptoms seem consistent with her sickle cell pain crisis. Patient states she does not feel as though she has acute chest. No other complaints. Past Medical History Past Medical History: Diagnosis [...] the patient. No additional pertinent items. A medically appropriate review of systems was performed with pertinent positives and negatives noted in the HPI, and all other systems negative. Physical Exam BP: 103/56 Pulse: 105 Temp: 98.1 ??F (36.7 ??C) Resp: 20 SpO2: 98 % Physical Exam General: Afebrile, no acute distress HEENT: Normocephalic, atraumatic, conjunctivae normal. MMM Neck: non-tender, supple Cardio: regular rate. regular rhythm Resp: Normal work of breathing, no respiratory distress, lungs clear bilaterally, no wheezing, rhonchi, rales Chest/Back: no visual signs of trauma, no CVA tenderness Abdomen: soft, non distension, no tenderness, no peritoneal signs Neuro: alert and fully oriented. CN II-XII grossly intact. Grossly normal strength and sensation inall extremities. MSK: no deformities. Normal range of motion Integumentary/Skin: no rash visualized, normal color Psych: normal affect, normal behavior ED Course, Procedures, & Data Procedures Results for orders placed or performed during the hospital encounter of 07/19/24 [place] Draw Status: None (In process) Narrative The following orders were created for panel order [place] Draw. Procedure Abnormality Status --------- ------ Extra Green Top (Lithiu...[[id number]] In process Extra Purple Top Tube[[id number]] In process Please view results for these tests on the individual orders. EKG 12-lead, tracing only Status: None (Preliminary result) Result Value Ref Range Systolic Blood Pressure mmHg Diastolic Blood Pressure mmHg Ventricular Rate 92 BPM Atrial Rate 92 BPM DC Interval 152 ms QRS Duration 86 ms QT 350 ms QTc 432 ms P Buckner 0 degrees R AXIS 67 degrees T Buckner 34 degrees Interpretation ECG Sinus rhythm Normal ECG Medications hydromorphone (DILAUDID) injection 2 mg (2 mg Intravenous $Given 07/19/24 0605) lactated ringers BOLUS 1,000 mL (0 mLs Intravenous Stopped 07/19/24 0520) ondansetron (ZOFRAN) injection 8 mg (8 mg Intravenous $Given 07/19/24 0327) diphenhydrAMINE (BENADRYL) capsule 50 mg (50 mg Oral $Given 07/19/24 5399) Labs Ordered and Resulted from Time of ED Arrival to Time of ED Departure - No data to display No orders to display Critical care was not performed. Medical Decision Making The patient's presentation was of high complexity (a chronic illness severe exacerbation, progression, or side effect of treatment). The patient's evaluation involved: review of external note(s) from 3+ sources (or plan, prior ED visits) review of 3+ test result(s) ordered prior to this encounter (recent EKG, labs, chest x-ray) ordering and/or review of 1 test(s) in this encounter (see separate area of note for details) The patient's management necessitated moderate risk (prescription drug management including medications given in the ED), high risk (a parenteral controlled substance), and high risk (a decision regarding hospitalization). Assessment & Plan Gianna Hernández is a 29 year old female with a history of sickle cell disease with pain crises with a care plan in place, acute chest syndrome, pulmonary embolism on Eliquis, and previous stroke who presents to the emergency department with a sickle cell pain crisis. Upon arrival patient is nontoxic appearing, afebrile, in distress 2/2 to pain. Patient here with symptoms consistent with sicklecell pain crisis. Patient afebrile, no hypoxia, no respiratory distress. I reviewed patient's care plan and will treat per care plan with IV Dilaudid, Zofran, 1 L LR bolus. EKG was performed upon arri august/triage. I reviewed EKG which demonstrates normal sinus rhythm with normal axis, ventricular rate of 92 bpm, no acute ischemic change, no significant change when compared to prior EKG, QTc 432. Per chart review patient with multiple recent ED visits for similar presentations. Recently had EKG, chest x-ray, comprehensive labs on 07/16/2024 which were unremarkable. I discussed with patient at this time no new/worsening symptoms, mostly pain management. Will hold off on any further repeat laboratory testing. Patient agrees with this plan. Patient was treated with care plan and on reevaluation patient reports significant improvement of her symptoms and would like to discharge home. Patient is agreeable to close outpatient follow-up with her oncology/hematology team, continuation of oral medications and strict return precautions discussed. Patient understands and agrees to the plan. I have reviewed the nursing notes. I have reviewed the findings, diagnosis, plan and need for follow up with the patient. New Prescriptions No medications on file Final diagnoses: Sickle cell pain crisis (H) Keshia Schofield MD [facility] EMERGENCY DE[facility]MENT 07/19/2024 Keshia Schofield MD 07/19/24 0615 documented in this encounter Plan of Treatment Upcoming Encounters Date Type Department Care Team (Late st Contact Info) Description 08/07/2024 7:15 AM CDT Lab [facility] Cancer [address] [phone] Case Samuel MD [address] [place] [address], [address] [id number] 08/08/2024 8:00 AM CDT Appointment [facility] [address] [phone] Case Samuel MD [address] [place] [address], RO[address] [address] 10/30/2024 11:30 AM CDT Lab [facility] Cancer [address] [phone] Case Samuel MD [address] [place] [address], [address] [address] 10/30/2024 12:00 PM CDT Oncology Visit [facility] Cancer [address] [phone] Case Samuel MD [address] [place] [address], [address] [address] Pending Results Name Type Priority Associated Diagnoses Date /Time [place] Draw Lab STAT 07/19/2024 3 :08 AM CDT Extra Green Top ([place] [facility]) Tube Lab STAT 07/19/2024 3:08 AM CDT Extra Purple Top Tube Lab STAT 3:08 AM CDT Scheduled Orders Name Type Priority Associated Diagnoses Orde r Schedule [place] Draw Lab STAT Routine for 1 Occurrences starting 07/19/2024 until 07/19/2024 Extra Green Top ([place] [facility]) Tube Lab STAT Once for 1 Occurrences starting 07/19/2024 until 07/19/2024, 1 completed Extra Purple Top Tube Lab STAT Onc e for 1 Occurrences starting 07/19/2024 until 07/19/2024, 1 completed documented as of this encounter Goals Goal Patient Goal Type Associated Problems Recent Progress Patient-Stated? Author Pain Management General On track( 025 2:58 PM CDT) Yes Juhi Benson RN Note: Goal Statement: [...] Diagnosis Comments EKG 12-LEAD, TRACING ONLY STAT 07/19/2024 2:56 AM CDT documented in this encounter Results * EKG 12-lead, tracing only (07/19/2024 2:56 AM CDT) Systolic Blood Pressure mmHg RADIOLOGY RESULTS Diastolic Blood Pressure mmHg RADIOLOGY RESULTS Ventricular Rate 92 BPM RAD IOLOGY RESULTS Atrial Rate 92 BPM RADIOLOG Y RESULTS DC Interval 152 ms RADIOLOG Y RESULTS QRS Duration 86 ms RADIOLO GY RESULTS QT 350 ms RADIOLOGY RESULTS QTc 432 ms RADIOLOGY RESULTS P Buckner 0 degrees RADIOLOGY RESULTS R AXIS 67 degrees RADIOLOGY RESULTS T Buckner 34 degrees RADIOLOGY RESULTS Interpretation ECG Sinus rhythm Normal ECG Unconfirmed report - interpretation of this ECG is computer generated - see medical record for final interpretation Confirmed by - EMERGENCY ROOM, PHYSICIAN ([id number]), editorial writer JESSICA CLANCY ([id number]) on 07/19/2024 6:36:56 AM RADIOLOGY RESULTS 07/19/2024 2:56 AM CDT 07/19/2024 6:36 AM CDT Keshia Schofield MD ECG ORDERABLES Edited R esult - Final RADIOLOGY RESULTS documented in this encounter Visit Diagnoses Diagnosis 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 documented in this encounter Administered Medications Inactive Administered Medications - up to 3 most recent administrations Medication Order MAR Action Action Date Dose Rate Site diphenhydrAMINE (BENADRYL) capsule 50 mg 50 mg, Oral, ONCE, On Wed07/19/24 at 0350, For 1 dose $Given 07/19/2024 3:56 AM CDT 50 mg heparin lock flush 10 unit/mL injection Starting on Wed07/19/24 at 0617, For 1 dose, Cyndie Fleming: cabinet override $Given 07/19/2024 6:34 AM CDT 50 Units hydromorphone (DILAUDID) injection 2 mg 2 mg, Intravenous, EVERY 1 HOUR PRN, severe pain, Starting on Wed07/19/24 at 0258, For 3 doses $Given 07/19/2024 6:05 AM CDT 2 mg $Given 07/19/2024 4:44 AM CDT 2 mg $Given 07/19/2024 3:18 AM CDT 2 mg lactated ringers BOLUS 1,000 mL Intravenous, 1,000 mL, ONCE, at 1,000 mL/hr, Administer over 1 Hours, On Wed07/19/24 at 0300, For 1 dose $New Bag 07/19/2024 3:33 AM CDT 1,000 mLs 1000 mL/hr ondansetron (ZOFRAN) injection 8 mg 8 mg, Intravenous, ONCE, Administer over 2-5 Minutes, On Wed07/19/24 at 0300, For 1 dose $Given 07/19/2024 3:27 AM CDT 8 mg documented in this encounter Active and Recently Administered Medications Times are shown in CDT. Scheduled Medication Order 07/17/2024 07/18/2024 07/19/2024 diphenhydrAMINE (BENADRYL) capsule 50 mg (COMPLETED) 50 mg, Oral, ONCE, On Wed07/19/24 at 0350, For 1 dose 0356 ($Given - Provi nas: Cyndie Fleming RN) lactated ringers BOLUS 1,000 mL (COMPLETED) Intravenous, 1,000 mL, ONCE, at 1,000 mL/hr, Administer over 1 Hours, On Wed07/19/24 at 0300, For 1 dose 0333 ($New Bag - Pro vider: Cyndie Fleming RN)0520 (Stopped - Provider: Cyndie Fleming RN) ondansetron (ZOFRAN) injection 8 mg (COMPLETED) 8 mg, Intravenous, ONCE, Administer over 2-5 Minutes, On Wed07/19/24 at 0300, For 1 dose 0327 ($Given - Provi nas: Cyndie Fleming RN) PRN Medication Order 07/17/2024 07/18/2024 07/19/2024 hydromorphone (DILAUDID) injection 2 mg (COMPLETED) 2 mg, Intravenous, EVERY 1 HOUR PRN, severe pain, Starting on Wed07/19/24 at 0258, For 3 doses 0318 ($Given - Provi nas: Cyndie Fleming RN)0444 ($Given - Provider: Cyndie Fleming RN)0605 ($Given - Provider: Cyndie Fleming RN) No Frequency Medication Order 07/17/2024 07/18/2024 07/19/2024 heparin lock flush 10 unit/mL injection (COMPLETED) Starting on Wed07/19/24 at 0617, For 1 dose, Cyndie Fleming: cabinet override 0634 ($Given - Provi nas: Cyndie Fleming RN) documented in this encounter Care Teams Wiring Technician Relationship Specialty Start Date End Date Veronica Joseph MD [address] [place] [address] PCP - General Family Medicine 06/18/24 Mor Ramsey Medical Student 04/03/24 Case Samuel MD [address] [place] [address], [address] [place] [address] Assigned Pediatric Specialist Provider 05/18/24 Juhi Benson, RN Specialty In School Suspension Aide Hematology & Oncology 05/29/24 documented as of this encounter
--- OUTSIDE RECORDS SUMMARY | 2024-07-28 20:45 | XMS_ITS | Encounter Summary ---
Author Organization [facility] Address [address] [place] [address] Care Team Providers Care Melt Down Furnace Operator Name Role Phone None Reported, Pcp Primary Care Provider Unavail able Reason for Visit * Reason Comments Sickle Cell Pain Crisis Pt presents to E D with complaints of increased pain in her back and her legs. Pt does have sickle cell disease. Encounter Details Date Type Department Care Team (Late st Contact Info) Description 07/22/2024 1:40 PM CDT - 07/22/2024 4:44 PM CDT Emergency [facility] [address] [place] [phone] Jori Malcolm M.D. [address] [phone] Sickle Cell Disease (HCC) (Primary Dx) Discharge [...] Reading Time Taken Comments Blood Pressure 104/73 07/22/2024 4:15 PM CDT Pulse 77 07/22/2024 4:30 PM CDT Temperature - - Respiratory Rate - - Oxygen Saturation 100% 07/22/2024 4:30 PM CDT Inhaled Oxygen Concentration - - Weight - - Height - - Body Mass Index - - documented in this encounter Discharge Instructions * Attachments The following attachments cannot be sent through Care Everywhere. * Living With Sickle Cell Disease ([place]) documented in this encounter Medications at [...] as of this encounter ED Notes * Jori Malcolm M.D. - 07/22/2024 1:53 PM CDT SUBJECTIVE CHIEF COMPLAINT/REASON FOR VISIT Sickle Cell Pain Crisis (Pt presents to ED with complaints of increased pain in her back and her legs. Pt does have sickle cell disease. ) HISTORY OF PRESENT ILLNESS 29-year-old female with a known history of sickle cell disease presents with pain in her back and legs typical of past sickle cell crisis pain. This is the patient's 1st visit to a [facility] facility. She typically gets her care at the [facility] having establish care with a resolution agent at the [facility]. She has a unique treatment plan outlined in these notes, this was provided by her resolution agent. She most recently moved here from [place]. She is in the area as she was visiting her boyfriend's parents and pain became gradually worse. She has been taking her p.o. Dilaudid without relief. I am able to review her visits at an outside emergency department [facility]-on 07/20/2024, 07/19/2024, 07/18/2024, 07/16/2024, 07/13/2024, 07/11/2024, 07/10/2024, 07/09/2024, 07/07/2024, 07/05/2024, 07/04/2024. During these emergency department visits patient's laboratory workup has remained at her baseline. She does have a remote history of acute chest syndrome. She has a history of pulmonary embolism currently anticoagulated on Eliquis. Today she is denying any shortness of breath or chest pain. She has no urinary changes. Denies any nausea, vomiting or abdominal pain. No diarrhea or blood in the stool. REVIEW OF SYSTEMS Constitutional: Negative for fatigue and fever. Respiratory: Negative for cough, hemoptysis, chest tightness and shortness of breath. Cardiovascular: Negative for chest pain and leg swelling. Gastrointestinal: Negative for abdominal pain, diarrhea, nausea and vomiting. Musculoskeletal: Positive for back pain and extremity pain. Negative for neck pain and neck stiffness. Neurological: Negative for dizziness. OBJECTIVE Initial Vitals [07/22/24 1348] Temp Pulse Heart Rate Resp BP SpO2 Pain Score 8 PHYSICAL EXAMINATION Constitutional: Nursing note and vitals reviewed. Cardiovascular: Normal rate and regular rhythm. Pulmonary/Chest: Effort normal and breath sounds normal. There is normal air entry. Abdominal: Soft. Neurological: Alert. ASSESSMENT/PLAN Assessment and Plan Gianna Hernández is a 29 year old female with a history of sickle cell disease with pain crises with a care plan in place outline reviewable from the [facility] hematology department. She presents to the emergency department with a sickle cell pain crisis. Upon arrival patient is nontoxic appearing, does not appear to be in any distress, afebrile, and conversing appropriately. Patient afebrile, no hypoxia, no respiratory distress-currently low suspicion for acute chest syndrome. I reviewed patient's care plan and will treat with IV Dilaudid, Zofran, 1 L LR bolus-as outlined by this unique treatment plan. Per chart review patient with multiple recent ED visits for similar presentations-typically at the [facility]. Recently had EKG, chest x-ray, comprehensive labs on 07/16/2024which were unremarkable. I discussed with the patient that as she is having no concerning red flag s ymptoms, I advised no repeat laboratory workup and/or imaging needed today. Goal of care will be pain control. . Patient agrees with this plan. On reevaluation, patient reports significant improvement of her symptoms and would like to discharge home. Plan will be to follow up with her oncology/hematology team as an out, continuation of oral medications and strict return precautions discussed. Patient understands and agrees to the plan. . Final Diagnoses: as of 07/22/24 1654 Sickle Cell Disease (HCC) Electronically signed by: Jori Malcolm M.D. 07/22/24 4:54 PM CDT Jori Malcolm M.D. 07/22/24 1655 documented in this encounter Plan of Treatment Not on file documented as of this encounter Visit Diagnoses Diagnosis Sickle Cell Disease (HCC)- Primary documented in this encounter Administered Medications Inactive Administered Medications - up to 3 most recent administrations Medication Order MAR Action Action Date Dose Rate Site diphenhydrAMINE capsule 25 mg (BenadryL) 25 mg, oral, Once, On 07/22/24 at 1408, For 1 dose Given 07/22/2024 2:12 PM CDT 25 mg heparin flush 500 Units 500 Units, intra-catheter, As needed, line care, Starting on 07/22/24 at 1540 Given 07/22/2024 4:29 PM CDT 500 Units HYDROmorphone injection 2 mg (Dilaudid) 2 mg, intravenous, Once, On 07/22/24 at 1408, For 1 dose Given 07/22/2024 2:22 PM CDT 2 mg HYDROmorphone injection 2 mg (Dilaudid) 2 mg, intravenous, Every 1 hour PRN, moderate pain or score 4-6 of 10, up to 2 more doses, Starting on 07/22/24 at 1441 Given 07/22/2024 4:23 PM CDT 2 mg Given 07/22/2024 3:31 PM CDT 2 mg Lactated Ringer's bolus 500 mL 500 mL, intravenous, at 500 mL/hr, Administer over 1 Hours, Once, On 07/22/24 at 1408, For 1 dose New Bag 07/22/2024 2:23 PM CDT 500 mL 500 mL/hr sodium chloride 0.9 % injection 2-10 mL 2-10 mL, intravenous, As needed, line care, Starting on 07/22/24 at 1405 Given 07/22/2024 4:23 PM CDT 10 mL Given 07/22/2024 2:23 PM CDT 2 mL Given 07/22/2024 2:20 PM CDT 10 mL documented in this encounter Active and Recently Administered Medications Times are shown in CDT. Scheduled Medication Order 07/20/2024 07/21/2024 07/22/2024 diphenhydrAMINE capsule 25 mg (BenadryL) (COMPLETED) 25 mg, oral, Once, On 07/22/24 at 1408, For 1 dose 1412 (Given - Provid er: Dixie Mckay) HYDROmorphone injection 2 mg (Dilaudid) (COMPLETED) 2 mg, intravenous, Once, On 07/22/24 at 1408, For 1 dose 1422 (Given - Provid er: Stefani Troy R.N.) Lactated Ringer's bolus 500 mL (COMPLETED) 500 mL, intravenous, at 500 mL/hr, Administer over 1 Hours, Once, On 07/22/24 at 1408, For 1 dose 1423 (New Bag - Prov ider: Stefani Troy R.N.)1500 (Stopped - Provider: Stefani Troy RSherylN.) PRN Medication Order 07/20/2024 07/21/2024 07/22/2024 heparin flush 500 Units 500 Units, intra-catheter, As needed, line care, Starting on 07/22/24 at 1540 1629 (Given - Provid er: Stefani Troy R.N.) HYDROmorphone injection 2 mg (Dilaudid) 2 mg, intravenous, Every 1 hour PRN, moderate pain or score 4-6 of 10, up to 2 more doses, Starting on 07/22/24 at 1441 1531 (Given - Provid er: Sheryl Jaime RSherylN.)1623 (Given - Provider: Stefani Troy, R.N.) sodium chloride 0.9 % injection 2-10 mL(Linked Group 1) 2-10 mL, intravenous, As needed, line care, Starting on 07/22/24 at 1405 1420 (Given - Provid er: Stefani Troy R.N.)1423 (Given - Provider: Stefani Troy R.N.)1623 (Given - Provider: Stefani Troy R.N.) Linked Groups Order Group 1: Place peripheral IV: No upper extremity site restrictions (COMPLETED) Upper extremity site restriction: No upper extremity site restrictions, Quantity of PIVs requested: One, STAT, Once, On 07/22/24 at 1406, For 1 occurrence And sodium chloride 0.9 % injection 2-10 mLJump to med 2-10 mL, intravenous, As needed, line care, Starting on 07/22/24 at 1405 documented in this encounter Care Teams Melt Down Furnace Operator Relationship Specialty Start Date End Date None Reported, Pcp PCP - General Family Medicine 07/22/24 documented as of this encounter
--- OUTSIDE RECORDS SUMMARY | 2024-07-28 20:45 | XMS_ITS | Encounter Summary ---
Author Organization [facility] Address [address] [place] [address]. 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 Gender Identity Not on file Sexual Orientation Not on file documented as of this encounter Plan of Treatment Upcoming Encounters Date Type Department Care Team (Late st Contact Info) Description 08/07/2024 7:15 AM CDT Lab [facility] [address] [phone] Case Samuel MD [address] [place] [address], [address] [address] 08/08/2024 8:00 AM CDT Appointment [facility] Advanced Treatment [address] [phone] Case Samuel MD [address] [place] [address], [address] [address] 10/30/2024 11:30 AM CDT Lab [facility] [address] [phone] Case Samuel MD [address] [place] [address], [address] [address] 10/30/2024 12:00 PM CDT Oncology Visit [facility] [address] [phone] Case Samuel MD [address], [address] [place] [address] documented as of this encounter Goals Goal [...] on filedocumented in this encounter Care Teams Disease Intervention Specialist Relationship Specialty Start Date End Date Veronica Joseph MD [address] [place] [address] PCP - General Family Medicine 06/18/24 Mor Ramsey Medical Student 04/03/24 Case Samuel MD [address], [address] [place] [address] Assigned Pediatric Specialist Provider 05/18/24 Juhi Benson, RN Specialty Statistician Applied Hematology & Oncology 05/29/24 documented as of this encounter
--- OUTSIDE RECORDS SUMMARY | 2024-07-28 20:45 | XMS_ITS | Encounter Summary ---
Author Organization [facility] Address [address] [place] [id number] Care Team Providers Care Core Loader Name Role Phone Roxy Mor Unavailable Unavailable Case Samuel MD Unavailable [phone] Juhi Benson RN Unavailable Unavailable Veronica Joseph MD Primary Care Provider [phone] Reason for Visit * Reason Comments Sickle Cell Pain Crisis Encounter Details Date Type Department Care Team ([facility] st Contact Info) Description 07/18/2024 11:21 AM CDT - 07/18/2024 2:47 PM CDT Emergency [facility] Emergency Department [address] [place] [phone] Dave Mcfarlane MD [address] [place] [id number] Sickle cell pain crisis (H) Discharge Disposition: [...] on file 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 Gender Identity Not on file Sexual Orientation Not on file documented as of this encounter Last Filed Vital Signs Vital Sign Reading Time Taken Comments Blood Pressure 103/83 07/18/2024 2:28 PM CDT Pulse 85 07/18/2024 2:28 PM CDT Temperature 36.9 C (98.4 F) 07/18/2024 2:28 PM CDT Respiratory Rate 16 07/18/2024 2:28 PM CDT Oxygen Saturation 98% 07/18/2024 2:28 PM CDT Inhaled Oxygen Concentration - - Weight 50.6 kg (111 lb 8 oz) 07/18/2024 11:24 AM CDT Height 154.9 cm (5' 1) 07/18/2024 11:24 AM CDT Body Mass Index 21.07 07/18/2024 11:24 AM CDT documented in this encounter Discharge Instructions * Discharge Instructions* Dave Mcfarlane MD - 07/18/2024 2:32 PM CDT Continue current medications. 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 Return if fever or other concerns. documented in this encounter Medications at Time [...] 05/01/2024 naloxone (NARCAN) 4 MG/0.1ML nasal spray [place] 1 spray (4 mg) into one nostril alternating nostrils as needed for opioid reversal (for opiate overdose if not breathing and unconscious. have your family member watch video on how to use/read information sheet). every 2-3 minutes until assistance arrives 2 each 06/06/2024 documented as of this encounter ED Notes * Hawa Mosqueda RN - 07/18/2024 11:24 AM CDT Triage Assessment & Note: BP 110/74 Pulse 87 Temp 98.3 ??F (36.8 ??C) (Oral) Resp 16 Ht 1.549 m (5' 1) Wt 50.6 kg (111 lb 8 oz) LMP 07/10/2024 (Exact Date) SpO2 97% BMI 21.07 kg/m?? Patient presents with: Sickle cell pt come ambulatory to triage with reports of bilt leg/ back pain. Pt reports being in clinic yesterday and not able to get in today. No reports of fever, cough, SOB, CP, or travel. Home Treatments/Remedies: Home medications Febrile / Afebrile: afebrile Duration of C/o: ongoing issues Hawa Sotelo RN July 18, 2024 * Yessenia Go RN - 07/18/2024 11:21 AM CDT [facility]: [facility]- Expected date: Expected time: Means of arrival: Comments: H1 * Dave Mcfarlane MD - 07/18/2024 11:11 AM CDT ED Provider Note [facility] History Chief Complaint Patient presents with Sickle Cell Pain Crisis HPI Gianna Hernández is a 29 year old female with a history of sickle cell disease with pain crises with a care plan in place, acute chest syndrome, pulmonary embolism on Eliquis, and previous stroke who presents to the emergency department with a sickle cell pain crisis. Patient reports bilateral back and lower extremity pain for the past few days. She had a hematology appointment and was squeezedinto the infusion center. She reports recurrent pain this morning. Patient denies any fever. No abdominal pain. No nausea or vomiting. No cough, chest pain, or dyspnea. She denies any leg weakness. No dysuria, urgency, or frequency. Per chart review, patient has had multiple ED visits in the past month for sickle cell pain. Patient was most recently here 2 days ago. Workup for labs, x- ray, troponin were unrevealing and she was discharged after pain medication. ER/Acute Care/Infusion Clinic: Hydromorphone 2 mg IVP/SC Q1H X 3 doses LR 500 ml/hr x 2 hours (1 L total) Other: Zofran 8 mg IV Physical Exam BP: 110/74 Pulse: 87 Temp: 98.3 ??F (36.8 ??C) Resp: 16 Height: 154.9 cm (5' 1) Weight: 50.6 kg (111 lb 8 oz) SpO2: 97 % Physical Exam Vitals and nursing note reviewed. Constitutional: General: She is not in acute distress. Appearance: She is not diaphoretic. HENT: Head: Normocephalic and atraumatic. Eyes: Extraocular Movements: Extraocular movements intact. Conjunctiva/sclera: Conjunctivae normal. Cardiovascular: Rate and Rhythm: Normal rate. Heart sounds: Normal heart sounds. Pulmonary: Effort: Pulmonary effort is normal. No respiratory distress. Breath sounds: Normal breath sounds. Abdominal: Palpations: Abdomen is soft. Tenderness: There is no abdominal tenderness. Musculoskeletal: General: No tenderness. Normal range of motion. Cervical back: Normal range of motion and neck supple. Skin: General: Skin is warm. Findings: No rash. Neurological: General: No focal deficit present. Motor: No weakness. Coordination: Coordination normal. Gait: Gait normal. Psychiatric: Mood and Affect: Mood normal. ED Course, Procedures, & Data Procedures No results found for any visits on 07/18/24. Medications hydromorphone (DILAUDID) injection 2 mg (2 mg Intravenous $Given 07/18/24 9414) ondansetron (ZOFRAN) injection 8 mg (8 mg Intravenous $Given 3/25/25 1151) lactated ringers BOLUS 1,000 mL (0 mLs Intravenous Stopped 07/18/24 1445) Labs Ordered and Resulted from Time of ED Arrival to Time of ED Departure - No data to display No orders to display Reviewed hematology visit from yesterday. Reviewed CBC, metabolic panel from yesterday. Previous reticulocyte counts. Reviewed emergency department care plan. Critical care was not performed. Medical Decision [...] (a parenteral controlled substance). Assessment & Plan 29 year old female with history of sickle cell disease to the emergency department with bilateral low back and bilateral leg pain consistent with previous sickle cell pain crises. The patient has normal vital signs and appears clinically well. She had labs performed yesterday with her baseline. Shedoes not appear acutely ill today. Patient treated in accordance with her emergency department careplan. She had good pain control after 3 doses of Dilaudid. She also received IV lactated Ringer's. She is feeling improved and ready for discharge. 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 Return precautions provided. I have reviewed the nursing notes. I have reviewed the findings, diagnosis, plan and need for follow up with the patient. Discharge Medication List as of 07/18/2024 2:45 PM START taking these medications Details HYDROmorphone (DILAUDID) 2 MG tablet Take 1-2 tablets (2-4 mg) by mouth every 6 hours as needed forsevere pain., Disp-45 tablet, R-0, E-Prescribe Final diagnoses: Sickle cell pain crisis (H) Chart documentation was completed with [employer] voice-recognition software. Even though reviewed, this chart may still contain some grammatical, spelling, and word errors. [facility] 07/18/2024 Dave Mcfarlane MD 07/18/242025 documented in this encounter Plan of Treatment Upcoming Encounters Date Type Department Care Team (Late st Contact Info) Description 08/07/2024 7:15 AM CDT Lab [facility] [address] [phone] Case Samuel MD [address] [place] [address], [address] [address] 08/08/2024 8:00 AM CDT Appointment [facility] [address] [phone] Case Samuel MD [address] [place] [address], [address] [address] 10/30/2024 11:30 AM CDT Lab [facility] [address] [phone] Case Samuel MD [address] [place] [address], [address] [id number] 10/30/2024 12:00 PM CDT Oncology Visit [facility] [address] [phone] Case Samuel MD [address] [place] [address], [address] [address] documented as of this encounter Goals Goal [...] port in dual implanted port, Starting on Wed07/18/24 at 1438, Flush each port lumen with the sodium chloride 0.9% flush followed by the heparin flush. MAX dose: 5 mL of heparin for each lumen heparin lock flush 10 unit/mL injection 5-10 mL 5-10 mL, Intracatheter, EVERY 24 HOURS, First dose on Wed07/18/24 at 1440, To lock each dormant port in dual [...] Intracatheter, EVERY 28 DAYS, First dose on Wed07/18/24 at 1440, To de-access each port in dual implanted port. Flush with 10 mL NS sodium chloride 0.9% flush followed by 5 mL heparin (100 units/mL) at discharge and at least every 28 days. MAX: 5 mL per each port lumen $Given 07/18/2024 2:45 PM CDT 5 mLs hydromorphone (DILAUDID) injection 2 mg 2 mg, Intravenous, EVERY 1 HOUR PRN, moderate pain, Starting on Wed07/18/24 at 1143, For 3 doses $Given 07/18/2024 1:54 PM CDT 2 mg $Given 07/18/2024 12:54 PM CDT 2 mg $Given 07/18/2024 11:52 AM CDT 2 mg lactated ringers BOLUS 1,000 mL Intravenous, 1,000 mL, ONCE, at 500 mL/hr, Administer over 2 Hours, On Wed07/18/24 at 1145, For 1 dose $New Bag 07/18/2024 11:49 AM CDT 1,000 mLs 500 mL/hr ondansetron (ZOFRAN) injection 8 mg 8 mg, Intravenous, ONCE, Administer over 2-5 Minutes, On Wed07/18/24 at 1145, For 1 dose $Given 07/18/2024 11:51 AM CDT 8 mg sodium chloride (PF) 0.9% PF flush 10-20 mL 10-20 mL, Intracatheter, EVERY 1 MIN PRN, line flush, post meds or blood draw, to flush each lumen of the CVC Implanted port, Starting on Wed07/18/24 at 1438, 10 mL per port lumen post IV meds; 20 mL per port lumen post post blood draw. sodium chloride (PF) 0.9% PF flush 10-20 mL 10-20 mL, Intracatheter, EVERY 1 HOUR PRN, other, to de-access port when not in use, Starting on Wed07/18/24 at 1438, Use sodium chloride 0.9% at least daily to de-access each port and lock dormant implanted port while not in use. Flush each port access with 10 mL sodium chloride 0.9% MAX: 10 mL per each port lumen sodium chloride (PF) 0.9% PF flush 10-20 mL 10-20 mL, Intracatheter, EVERY 28 DAYS, First dose on Wed07/18/24 at 1440, To flush and lock each port in dual implanted port. Flush each port with 10 mL sodium chloride 0.9% followed by either heparin or anticoagulant citrate as ordered. Max: 10 mL per each port lumen. documented in this encounter Active and Recently Administered Medications Times are shown in CDT. Scheduled Medication Order 07/16/2024 07/17/2024 07/18/2024 heparin lock flush 10 unit/mL injection 5-10 mL 5-10 mL, Intracatheter, EVERY 24 HOURS, First dose on Wed07/18/24 at 1440, To lock each dormant port in dual implanted port. MAX: 5 mL of heparin for each lumen Check PRN heparin flush order to see when the last dose of the PRN heparin was given before administering this heparin dose. Flush with sodium chloride 0.9% followed by the heparin flush. 1440 (Canceled Entry - Provider: Orders Generic Provider - Comment: Automatically canceled at discontinue of medication order) heparin lock flush 100 unit/mL injection 5-10 mL 5-10 mL, Intracatheter, EVERY 28 DAYS, First dose on Wed07/18/24 at 1440, To de-access each port in dual implanted port. Flush with 10 mL NS sodium chloride 0.9% flush followed by 5 mL heparin (100 units/mL) at discharge and at least every 28 days. MAX: 5 mL per each port lumen 1445 ($Given - Provi nas: Aminata Antunez RN) lactated ringers BOLUS 1,000 mL (COMPLETED) Intravenous, 1,000 mL, ONCE, at 500 mL/hr, Administer over 2 Hours, On Wed07/18/24 at 1145, For 1 dose 1149 ($New Bag - Pro vider: Aminata Antunez RN)1445 (Stopped - Provider: Aminata Antunez RN) ondansetron (ZOFRAN) injection 8 mg (COMPLETED) 8 mg, Intravenous, ONCE, Administer over 2-5 Minutes, On Wed07/18/24 at 1145, For 1 dose 1151 ($Given - Provi nas: Aminata Antunez RN) sodium chloride (PF) 0.9% PF flush 10-20 mL 10-20 mL, Intracatheter, EVERY 28 DAYS, First dose on Wed07/18/24 at 1440, To flush and lock each port in dual implanted port. Flush each port with 10 mL sodium chloride 0.9% followed by either heparin or anticoagulant citrate as ordered. Max: 10 mL per each port lumen. 1440 (Canceled Entry - Provider: Orders Generic Provider - Comment: Automatically canceled at discontinue of medication order) PRN Medication Order 07/16/2024 07/17/2024 07/18/2024 heparin lock flush 10 unit/mL injection 5-10 mL 5-10 mL, Intracatheter, EVERY 1 HOUR PRN, post meds or blood draw, other, to lock each port in dual implanted port, Starting on Wed07/18/24 at 1438, Flush each port lumen with the sodium chloride 0.9% flush followed by the heparin flush. MAX dose: 5 mL of heparin for each lumen hydromorphone (DILAUDID) injection 2 mg (COMPLETED) 2 mg, Intravenous, EVERY 1 HOUR PRN, moderate pain, Starting on Wed07/18/24 at 1143, For 3 doses 1152 ($Given - Provi nas: Aminata Antunez, SOFIA)1254 ($Given - Provider: Aminata Antunez, RN)1354 ($Given - Provider: Aminata Antunez, SOFIA) sodium chloride (PF) 0.9% PF flush 10-20 mL 10-20 mL, Intracatheter, EVERY 1 MIN PRN, line flush, post meds or blood draw, to flush each lumen of the CVC Implanted port, Starting on Wed07/18/24 at 1438, 10 mL per port lumen post IV meds; 20 mL per port lumen post post blood draw. sodium chloride (PF) 0.9% PF flush 10-20 mL 10-20 mL, Intracatheter, EVERY 1 HOUR PRN, other, to de-access port when not in use, Starting on Wed07/18/24 at 1438, Use sodium chloride 0.9% at least daily to de-access each port and lock dormant implanted port while not in use. Flush each port access with 10 mL sodium chloride 0.9% MAX: 10 mL per each port lumen documented in this encounter Care Teams Core Loader Relationship Specialty Start Date End Date Veronica Joseph MD [address] [place] [address] PCP - General Family Medicine 06/18/24 Mor Ramsey Medical Student 04/03/24 Case Samuel MD [address] [place] [address], [id number] [place] [address] Assigned Pediatric Specialist Provider 1/23/25 Juhi Benson, RN Specialty Price Lister Hematology & Oncology 05/29/24 documented as of this encounter
--- OUTSIDE RECORDS SUMMARY | 2024-07-28 20:45 | XMS_ITS | Encounter Summary ---
Author Organization [facility] Address [address] [place] [address]. [place] [address] Care Team Providers Care Him Specialists Name Role Phone RoxyElvirac Unavailable Unavailable Case Samuel MD Unavailable [phone] Juhi Benson RN Unavailable Unavailable Veronica Joseph MD Primary Care Provider [phone] Reason for Visit * Reason Comments Sickle Cell Pain Crisis Encounter Details Date Type Department Care Team (Late st Contact Info) Description 07/20/2024 10:32 AM CDT - 07/20/2024 1:57 PM CDT Emergency [facility] Emergency Department [address] [place] [phone] Payal Arriaga, [address] [address] Sickle cell pain crisis (H); Bilateral leg pain; Acute bilateral back pain, unspecified back location Discharge Disposition: Home or Self Care Social [...] on file 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 Gender Identity Not on file Sexual Orientation Not on file documented as of this encounter Last Filed Vital Signs Vital Sign Reading Time Taken Comments Blood Pressure 103/53 07/20/2024 9:42 AM CDT Pulse 89 07/20/2024 9:42 AM CDT Temperature 36.9 C (98.4 F) 07/20/2024 9:42 AM CDT Respiratory Rate 16 07/20/2024 9:42 AM CDT Oxygen Saturation 100% 07/20/2024 9:42 AM CDT Inhaled Oxygen Concentration - - Weight 52.2 kg (115 lb) 07/20/2024 9:42 AM CDT Height 154.9 cm (5' 1) 07/20/2024 9:42 AM CDT Body Mass Index 21.73 07/20/2024 9:42 AM CDT documented in this encounter Discharge Instructions * Discharge Instructions* Payal Arriaga, DO - 07/20/2024 1:56 PM CDT Please return if symptoms get worse. Please follow-up with your specialist documented in this encounter Medications at Time [...] 05/01/2024 naloxone (NARCAN) 4 MG/0.1ML nasal spray [place] 1 spray (4 mg) into one nostril alternating nostrils as needed for opioid reversal (for opiate overdose if not breathing and unconscious. have your family member watch video on how to use/read information sheet). every 2-3 minutes until assistance arrives 2 each 06/06/2024 documented as of this encounter ED Notes * Bayron Whatley RN - 07/20/2024 9:45 AM CDT Patient here for sickle cell pain crisis, 8/10 pain all over her back, L lateral side of chest, andbilateral lower legs. Pain started 3 days ago. Triage Assessment (Adult) Row Name 07/20/24 0944 Triage Assessment Airway WDL WDL Respiratory WDL Respiratory WDL WDL Skin Circulation/Temperature WDL Skin Circulation/Temperature WDL WDL Cardiac WDL Cardiac WDL WDL Peripheral/Neurovascular WDL Peripheral Neurovascular WDL WDL Cognitive/Neuro/Behavioral WDL Cognitive/Neuro/Behavioral WDL WDL * Payal Arriaga DO - 07/20/2024 9:36 AM CDT Images from the original note were not included. [facility] ([facility]) 07/20/24 ED PROVIDER NOTE History Chief Complaint Patient presents with Sickle Cell Pain Crisis HPI Gianna Hernández is a 29 year old female with a past medical history of sickle cell disease, prior PE on eliquis, and acute chest syndrome who presents to the emergency department for sickle cell pain crisis. Patient states that pain started late last night. She has been taking her home Dilaudid without any relief. Tried to make an appointment with a hematology clinic but they were full. Patient says that the pain is similar to previous crises. She has got pain in bilateral hips radiating down the lateral aspects of both legs and along her entire back. She says that the back pain is not midline but more paraspinal. Denies any fevers chills lightheadedness syncope chest pain shortness of breath cough wheezing abdominal pain nausea vomiting diarrhea. No trauma Past Medical History Past Medical History: Diagnosis [...] all other systems negative. Physical Exam BP: 103/53 Pulse: 89 Temp: 98.4 ??F (36.9 ??C) Resp: 16 Height: 154.9 cm (5' 1) Weight: 52.2 kg (115 lb) SpO2: 100 % Physical Exam Gen: Awake and alert, interactive and in no acute distress Head: Atraumatic Chest: No tenderness to palpation, no crepitus CV: RRR, no murmurs Pulm: CTAB with good aeration, no retractions or accessory muscle use, no wheezing/ronchi/crackles Abd: Soft, NTND, no organomegaly Back: No midline ttp, no CVAT Ext: Full ROM w/o pain, no joint effusions, no edema Derm: No rash, skin warm and dry Neuro: Moves all extremities appropriately. Affect, activity, and interaction appropriate Vasc: Symmetric pulses, capillary refill < 2 sec ED Course, Procedures, & Data Procedures Results for orders placed or performed during the hospital encounter of 07/20/24 [facility] Status: None (In process) Narrative The following orders were created for panel order [facility]. Procedure Abnormality Status --------- ------ Extra Blue Top Tube[[id number]] In process Extra Red Top Tube[[id number]] In process Extra Green Top (Lithiu...[[id number]] In process Extra Purple Top Tube[[id number]] In process Please view results for these tests on the individual orders. Medications heparin lock flush 10 unit/mL injection 5-10 mL (has no administration in time range) heparin lock flush 10 unit/mL injection 5-10 mL ( Intracatheter Not Given 07/20/24 1309) heparin lock flush 100 unit/mL injection 5-10 mL (10 mLs Intracatheter $Given 07/20/24 1354) hydromorphone (DILAUDID) injection 2 mg (2 mg Intravenous $Given 07/20/24 1340) lactated ringers BOLUS 500 mL (0 mLs Intravenous Stopped 07/20/24 1237) diphenhydrAMINE (BENADRYL) capsule 25 mg (25 mg Oral $Given 07/20/24 1127) Labs Ordered and Resulted from Time of [...] Assessment & Plan Vital signs stable. Based my examination I do not have any concern for urgent complication of sickle cell to include acute chest syndrome occult infectious process. Patient given pain medication per her plan On reevaluation at 1:30 PM patient is feeling better and would like to discharge. I have reviewed the patient's discharge instructions [...] Final diagnoses: Sickle cell pain crisis (H) Bilateral leg pain Acute bilateral back pain, unspecified back location Payal Arriaga DO on 07/20/2024 at 1:57 PM [facility] 07/20/2024 Payal Arriaga DO 07/20/24 8287 documented in this encounter Plan of Treatment Upcoming Encounters Date Type Department Care Team (Late st Contact Info) Description 08/07/2024 7:15 AM CDT Lab [facility] [address] [place] [phone] Case Samuel MD [address] [place] [address], [address] [place], [place] [id number] 08/08/2024 8:00 AM CDT Appointment [facility] [place] [address] [place] [phone] Case Samuel MD [address] [facility] [address], [address] [place] [address] 10/30/2024 11:30 AM CDT Lab [facility] [address] [place] [phone] Case Samuel MD [address] [place] [address], [address] [place] [address] 10/30/2024 12:00 PM CDT Oncology Visit [facility] [address] [phone] Case Samuel MD [address] [place] [address], [address] [address] Pending Results Name Type Priority Associated Diagnoses Date /Time [facility] STAT 07/20/2024 1 1:28 AM CDT Extra Blue Top Tube Lab STAT 07/20 11:28 AM CDT Extra Red Top Tube Lab STAT 2024 11:28 AM CDT Extra Green Top ([place] Heparin) Tube Lab STAT 07/20/2024 11:28 AM CDT Extra Purple Top Tube Lab STAT 11:28 AM CDT Scheduled Orders Name Type Priority Associated Diagnoses Orde r Schedule [facility] STAT Routine for 1 Occurrences starting 07/20/2024 until 07/20/2024 Extra Blue Top Tube Lab STAT Once for 1 Occurrences starting 07/20/2024 until 07/20/2024, 1 completed Extra Red Top Tube Lab STAT Once f or 1 Occurrences starting 07/20/2024 until 07/20/2024, 1 completed Extra Green Top ([place] Heparin) Tube Lab STAT Once for 1 Occurrences starting 07/20/2024 until 07/20/2024, 1 completed Extra Purple Top Tube Lab STAT Onc e for 1 Occurrences starting 07/20/2024 until 07/20/2024, 1 completed documented as of this encounter [...] pain crisis (H) Hb-SS disease with crisis Bilateral leg pain Pain in limb Acute bilateral back pain, unspecified back location documented in this encounter Administered Medications Inactive Administered Medications - up to 3 most recent administrations Medication Order MAR Action Action Date Dose Rate Site diphenhydrAMINE (BENADRYL) capsule 25 mg 25 mg, Oral, ONCE, On Wed07/20/24 at 1040, For 1 dose $Given 07/20/2024 11:27 AM CDT 25 mg heparin lock flush 10 unit/mL injection 5-10 mL 5-10 mL, Intracatheter, EVERY 1 HOUR PRN, post meds or blood draw, other, to lock each port in dual implanted port, Starting on Wed07/20/24 at 1118, Flush each port lumen with the sodium chloride 0.9% flush followed by the heparin flush. MAX dose: 5 mL of heparin for each lumen heparin lock flush 10 unit/mL injection 5-10 mL 5-10 mL, Intracatheter, EVERY 24 HOURS, First dose on Wed07/20/24 at 1120, To lock each dormant port in dual [...] EVERY 28 DAYS, First dose on Citlali 07/20/24 at 1120, To de-access each port in dual implanted port. Flush with 10 mL NS sodium chloride 0.9% flush followed by 5 mL heparin (100 units/mL) at discharge and at least every 28 days. MAX: 5 mL per each port lumen $Given 07/20/2024 1:54 PM CDT 10 mLs hydromorphone (DILAUDID) injection 2 mg 2 mg, Intravenous, EVERY 1 HOUR PRN, severe pain, Starting on Citlali 07/20/24 at 1038, For 3 doses $Given 07/20/2024 1:40 PM CDT 2 mg $Given 07/20/2024 12:39 PM CDT 2 mg $Given 07/20/2024 11:27 AM CDT 2 mg lactated ringers BOLUS 500 mL Intravenous, 500 mL, ONCE, at 500 mL/hr, Administer over 1 Hours, On Citlali 07/20/24 at 1040, For 1 dose $New Bag 07/20/2024 11:28 AM CDT 500 mLs 500 mL/hr documented in this encounter Active and Recently Administered Medications Times are shown in CDT. Scheduled Medication Order 07/18/2024 07/19/2024 07/20/2024 diphenhydrAMINE (BENADRYL) capsule 25 mg (COMPLETED) 25 mg, Oral, ONCE, On Citlali 07/20/24 at 1040, For 1 dose 1127 ($Given - Provi nas: Suzanne Covington RN) heparin lock flush 10 unit/mL injection 5-10 mL 5-10 mL, Intracatheter, EVERY 24 HOURS, First dose on Citlali 07/20/24 at 1120, To lock each dormant port in dual implanted port. MAX: 5 mL of heparin for each lumen Check PRN heparin flush order to see when the last dose of the PRN heparin was given before administering this heparin dose. Flush with sodium chloride 0.9% followed by the heparin flush. 1309 (Not Given - Pr ovider: Coy Stiles RN - Reason: Order parameters not met) heparin lock flush 100 unit/mL injection 5-10 mL 5-10 mL, Intracatheter, EVERY 28 DAYS, First dose on Citlali 07/20/24 at 1120, To de-access each port in dual implanted port. Flush with 10 mL NS sodium chloride 0.9% flush followed by 5 mL heparin (100 units/mL) at discharge and at least every 28 days. MAX: 5 mL per each port lumen 1354 ($Given - Provi nas: Lali Haines RN) lactated ringers BOLUS 500 mL (COMPLETED) Intravenous, 500 mL, ONCE, at 500 mL/hr, Administer over 1 Hours, On Citlali 07/20/24 at 1040, For 1 dose 1128 ($New Bag - Pro vider: Suzanne Covington RN)1237 (Stopped - Provider: Juan Uriostegui RN) PRN Medication Order 07/18/2024 07/19/2024 07/20/2024 heparin lock flush 10 unit/mL injection 5-10 mL 5-10 mL, Intracatheter, EVERY 1 HOUR PRN, post meds or blood draw, other, to lock each port in dual implanted port, Starting on Citlali 07/20/24 at 1118, Flush each port lumen with the sodium chloride 0.9% flush followed by the heparin flush. MAX dose: 5 mL of heparin for each lumen hydromorphone (DILAUDID) injection 2 mg (COMPLETED) 2 mg, Intravenous, EVERY 1 HOUR PRN, severe pain, Starting on Citlali 07/20/24 at 1038, For 3 doses 1127 ($Given - Provi nas: Suzanne Covington RN)1239 ($Given - Provider: Gerard Colvin RN)1340 ($Given - Provider: Coy Stiles, SOFIA) documented in this encounter Care Teams Him Specialists Relationship Specialty Start Date End Date Veronica Joseph MD [address] [place] [address] PCP - General Family Medicine 06/18/24 Mor Ramsey Medical Student 04/03/24 Case Samuel MD [address] [place] [address], [address] [place] [address] Assigned Pediatric Specialist Provider 05/18/24 Juhi Benson, RN Specialty Milk Handler Hematology & Oncology 05/29/24 documented as of this encounter
--- OUTSIDE RECORDS SUMMARY | 2024-07-28 20:45 | XMS_ITS | Encounter Summary ---
Author Organization [facility] Address [address] [place] [address]. 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 Gender Identity Not on file Sexual Orientation Not on file documented as of this encounter Plan of Treatment Upcoming Encounters Date Type Department Care Team (Late st Contact Info) Description 08/07/2024 7:15 AM CDT Lab [facility] [address] [phone] Case Samuel MD [address] [place] [address], [address] [address] 08/08/2024 8:00 AM CDT Appointment [facility] [address] [phone] Case Samuel MD [address] [place] [address], [address] [address] 10/30/2024 11:30 AM CDT Lab [facility] [address] [phone] Case Samuel MD [address] [place] [address], [address] [address] 10/30/2024 12:00 PM CDT Oncology Visit [facility] [address] [phone] Case Samuel MD [address] [facility] [address], [address] [place] [address] documented as of this encounter Goals Goal [...] filedocumented in this encounter Care Teams Director Data Relationship Specialty Start Date End Date Veronica Joseph MD [address] [place] [address] PCP - General Family Medicine 06/18/24 Mor Ramsey Medical Student 04/03/24 Case Samuel MD [address] [facility] [address], [address] [place] [address] Assigned Pediatric Specialist Provider 05/18/24 Juhi Benson, RN Specialty Water Supply Engineer Hematology & Oncology 05/29/24 documented as of this encounter
[2024-07-28 20:46] VITALS: BP 110/67; PULSE 83; RESP 16; TEMP 36.3; O2SAT 99; BMI 20.8
--- OUTSIDE RECORDS SUMMARY | 2024-07-28 20:46 | XMS_ITS | Encounter Summary ---
Author Organization [facility] Address [address] [place] [address]. 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 Call member services at your health plan with any benefit or coverage questions. STRINGER ASSEMBLER Reason for Visit * Reason Comments Sickle Cell Pain Crisis * Auth/Cert Specialty Diagnoses / Procedures Referred By Contkameron t Referred To Contact EMERGENCY MEDICINE Diagnoses Acute chest pain Sickle cell pain crisis (H) [facility] Emergency Department [address] [place] [address] Phone: tel: Referral ID Status Reason Start Date Expiration Date Visits Re quested Visits Authorized [id number] 1 1 Encounter Details Date Type Department Care Team (Latest Contact Info) Description 06/12/2024 6:38 PM FISH STRINGER ASSEMBLER - 06/15/2024 10:48 AM FISH STRINGER ASSEMBLER Hospital Encounter [facility] Emergency Department [address] [place] [phone] Abdelrahman Goddard MD [address] [place] [address] Andres Jain DO Duffy, Briar, MD [address] [facility] [facility] [address] [place] [address] 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) [...] on file Legal Sex Female 8:25 AM FISH STRINGER ASSEMBLER Gender Identity Not on file Sexual Orientation Not on file documented as of this encounter Last Filed Vital Signs Vital Sign Reading Time Taken Comments Blood Pressure 99/64 06/15/2024 6:10 AM FISH STRINGER ASSEMBLER Pulse 75 06/15/2024 6:10 AM FISH STRINGER ASSEMBLER Temperature 36.7 C (98 F) 06/15/2024 6:10 AM FISH STRINGER ASSEMBLER Respiratory Rate 16 06/15/2024 6:10 AM FISH STRINGER ASSEMBLER Oxygen Saturation 100% 06/15/2024 6:10 AM FISH STRINGER ASSEMBLER Inhaled Oxygen Concentration - - Weight - - Height - - Body Mass Index - - documented in this encounter Discharge Summaries * Rl Elias MD - 06/15/2024 8:58 AM CST [facility] Discharge Summary - Medicine & Pediatrics Date of Admission: 06/12/2024 Date of Discharge: 06/15/2024 Discharging Provider: Dr Rl Elias, Dr German Hall Discharge Service: Medicine Service, [facility] TEAM 1 Discharge Diagnoses Acute [...] 5 day course of antibiotics - Continue WORKDAY MANAGER hydroxyurea - Continue WORKDAY MANAGER folic acid - Continue albuterol inhaler QID given in the ED - Patient should follow up with her PCP upon discharge in 2-3 weeks - Patient should restart pain plan as taking at home with PO hydromorphone 2 mg Q6H PRN for pain upon discharge #Anxiety #Nausea - Continue WORKDAY MANAGER Fluoxetine 10 mg daily Consultations This Hospital Stay HEMATOLOGY ADULT IP CONSULT CARE MANAGEMENT / SOCIAL WORK IP CONSULT Code Status Full Code The patient was discussed with Dr. Hall. MD Oliver LANGLEY [address] [place] [address] EMERGENCY DEPARTMENT [address] [facility] [id number] Physical Exam Vital Signs: Temp: 98 ??F [...] your primary care provider & your primary Spare Fixer as indicated. Activity Your activity upon discharge: [...] Narrative EXAM: XR CHEST 2 VIEWS LOCATION: [facility] DATE: 06/12/2024 INDICATION: CP COMPARISON: 06/03/2024, [...] E-Prescribe naloxone (NARCAN) 4 MG/0.1ML nasal spray [place] 1 spray (4 mg) into one nostril [...] German Hall MD at 06/22/2024 12:17 PM FISH STRINGER ASSEMBLER STRINGER ASSEMBLER STRINGER ASSEMBLER Associated attestation - German Hall MD - 06/22/2024 12:17 PM FISH STRINGER ASSEMBLER Attestation: This patient has been seen and [...] 05/01/2024 naloxone (NARCAN) 4 MG/0.1ML nasal spray [place] 1 spray (4 mg) into one nostril [...] Overall, I spent 35 minutes today (DOS) [id number] and/or coordinating care as documented above and specifically listed as below: --Reviewing documentation related to patient's history and this current admission available in Tripleseat --Review and clinical interpretation of pertinent laboratory test results and radiology reports from this admission --Discussion of the patient's case with the members of the Hematology Consult Team --Discussion with the patient --Documentation in the electronic health record STRINGER ASSEMBLER * Rl Elias MD - 06/14/2024 7:08 [...] Service (when I saw the patient): 06/14/24 [facility] Progress Note - [facility] Date of Admission: 06/12/2024 [...] 7-9, most recent Hbg 8.8 on 06/07 WORKDAY MANAGER. Hb.5 -> 6.4 -> 6.8 -> 6.9 Plan: - Blood cultures pending x2 - NGTD - CTM hemoglobin daily - Ordered Voltaren gel, lidocaine patches, and icy hot PRN - Continue Ceftriaxone and Azithromycin for ppx (06/12 -*), consider transition to PO this afternoon - Continue WORKDAY MANAGER hydroxyurea - Continue WORKDAY MANAGER folic acid - Continue IS - type and screen ordered, consented for blood on 06/13 - no indication for transfusion unless hemodynamically unstable - Hematology consulted, appreciate recs - Hydromorphone 2 mg IV Q2H scheduled--titrate within 24-48 hours - Maintenance LR - Transfusion not recommended at this time - albuterol inhaler q6h, zofran, benadryl, docusate, senna PRN #Anxiety #Nausea - Continue WORKDAY MANAGER Fluoxetine - Benadryl PRN per Pain [...] Nivia Carvajal, MS3 Medical Student Medicine Service, [facility] TEAM [address] [place] [address] Securely message with foodpanda / hellofood (more info) Text page via [facility] Paging/Directory See signed in provider for up [...] German Hall MD at 06/19/2024 8:50 AM FISH STRINGER ASSEMBLER STRINGER ASSEMBLER STRINGER ASSEMBLER STRINGER ASSEMBLER Associated attestation - German Hall MD - 06/19/2024 8:50 AM FISH STRINGER ASSEMBLER Attestation: This patient has been seen and [...] Service (when I saw the patient): 06/13/24 [facility] Progress Note - Medicine Service, [facility] TEAM 1 Date of Admission: [...] 7-9, most recent Hbg 8.8 on 06/07 WORKDAY MANAGER. Hb.5 -> 6.4 Plan: -Blood cultures pending x2 -CTM hemoglobin daily -Continue Ceftriaxone and Azithromycin for ppx (06/12 -*) -Continue WORKDAY MANAGER hydroxyurea -Continue WORKDAY MANAGER folic acid - type and screen ordered, consented for blood - no indication for transfusion unless hemodynamic instability - Hematology consulted, appreciate recs -Hydromorphone 2 mg IV Q3H scheduled--titrate within 24-48 hours -Maintenance LR -Transfusion not recommended at this time - zofran, benadryl, docusate, senna PRN #Anxiety #Nausea -Continue WORKDAY MANAGER Fluoxetine -Benadryl PRN per Pain Plan [...] Nivia Carvajal, MS3 Medical Student Medicine Service, [facility] TEAM [address] [place] [address] Securely message with foodpanda / hellofood (more info) Text page via [employer] Paging/Directory See signed in provider for up [...] Narrative EXAM: XR CHEST 2 VIEWS LOCATION: [facility] DATE: 06/12/2024 INDICATION: CP COMPARISON: 06/03/2024, [...] German Hall MD at 06/14/2024 8:25 AM FISH STRINGER ASSEMBLER STRINGER ASSEMBLER STRINGER ASSEMBLER Associated attestation - German Hall MD - 06/14/2024 8:25 AM FISH STRINGER ASSEMBLER Attestation: This patient has been seen and evaluated by me, German Hall MD. Discussed with the house staff team or resident(s) and agree with the findings and plan in this note. I have reviewed today's Medications, Vital Signs, and Labs. DOS 06/13 * Mary Flores MD - 06/12/2024 8:20 PM CST call center agent Hematology fellow note 29F Sickle cell disease [...] Flores MD MS Hematology fellow, PGY5 Pager: [phone] Cosigned by Kirstin Long MD at 06/13/2024 7:25 AM FISH STRINGER ASSEMBLER STRINGER ASSEMBLER STRINGER ASSEMBLER STRINGER ASSEMBLER Associated attestation - Kirstin Long MD - 06/13/2024 7:25 AM FISH STRINGER ASSEMBLER Physician Attestation I discussed patient overnight with fellow admission specialist. I agree with plan as outlined. I did not see thepatient on this date. Kirstin Long MD/PhD documented in this encounter H&P Notes * Laquita Kelley MD - 06/12/2024 9:37 PM CST [facility] History and Physical - Medicine Service, [facility] TEAM Date of Admission: 06/12/2024 [...] of avascular necrosis of left hip -Continue WORKDAY MANAGER hydroxyurea -Continue WORKDAY MANAGER folic acid -Transfuse for Hb<7 #Stroke [...] Jain . Laquita Kelley MD Medicine Service, [facility] Securely message with foodpanda / hellofood (more info) Text page via [facility] Paging/Directory See signed in provider for 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, had port-a-cath in [facility] Functional asplenia Gallstones Hb-SS disease without [...] 4 MG/0.1ML nasal spray No No Sig: [place] 1 spray (4 mg) into one nostril [...] Andres Jain DO at 06/12/2024 10:27 PM FISH STRINGER ASSEMBLER STRINGER ASSEMBLER STRINGER ASSEMBLER STRINGER ASSEMBLER STRINGER ASSEMBLER Associated attestation - Andres Jain DO - 06/12/2024 10:27 PM FISH STRINGER ASSEMBLER Physician Attestation I saw this patient with [...] Communication Assessment Patient's communication style: spoken language (Stateless or Bilingual) Cognitive Cognitive/Neuro/Behavioral: WDL Living Environment: [...] Depression: Not at risk (04/11/2024) Received from [facility] PHQ-2 PHQ-2 TOTAL SCORE: 1 Housing [...] Social Connections: Socially Integrated (03/28/2024) Received from [facility] Social Connections Do you often feel lonely or isolated from those around you?: 0 Health Literacy: Not on file Functional Status: Prior to admission patient needed assistance: Dependent ADLs:: Independent Dependent IADLs:: Independent Mental Health Status: Mental Health Status: No Current Concerns Chemical Dependency Status: Chemical Dependency Status: No Current Concerns Values/Beliefs: Spiritual, Cultural Beliefs, Restorationism Practices, Values that affect care: no Discussed [...] Katheryn Carter RN, PHN, BSN Float Nurse Radiology Receptionist Covering for Unit ED Phone [phone] STRINGER ASSEMBLER * Kirstin Long MD - 06/13/2024 10:17 AM CSTAssociated Order(s): HEMATOLOGY ADULT IP CONSULT Images from the original note were not included. Hematology Consult Note Date of Service: 06/13/2024 Patient: Gianna Hernández Admission Date: 06/12/2024 Hospital Day # 1 Hematology Diagnosis: Sickle Cell Disease - HbSS Primary Outpatient Spare Fixer: Dr Samuel Current Treatment Plan: Inpatient: Opioid: 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, [facility] Functional asplenia Gallstones Hb-SS disease without crisis [...] 11 naloxone (NARCAN) 4 MG/0.1ML nasal spray [place] 1 spray (4 mg) into one nostril [...] Imaging EXAM: XR CHEST 2 VIEWS LOCATION: [facility] DATE: 06/12/2024 INDICATION: CP COMPARISON: 06/03/2024, 05/27/2024 IMPRESSION: A few faint peripheral reticulonodular opacities in the mid and lower lungs again seen.Lungs otherwise clear. No pleural effusion. No pneumothorax. Borderline cardiac enlargement unchanged. Port anterior right chest wall with right IJ central venous catheter tip low SVC. Port anterior left chest wall with left IJ central venous catheter tip low SVC. STRINGER ASSEMBLER documented in this encounter ED Notes * Juhi Crump RN - 06/12/2024 6:55 PM CST Bed: [facility] Expected date: Expected time: Means of arrival: Comments: SICK STRINGER ASSEMBLER * Lebron Aponte RN - 06/12/2024 6:34 PM CST Pt ambulatory to triage with CC of sickle cell pain in the L upper anterior chest. Was seen for this at [facility] last night. Reports interventions at [facility] were helpful, however pain has returned. Patient reports taking 4mg po Dilaudid at 1500 with partial relief of pain but is still severe. Contacted basting cleaner and was instructed to come to [facility] EB. Reports SOB a little bit. It hurts to take a deep breath. Denies dizziness. Triage Assessment (Adult) Row Name 06/12/24 3849 Triage Assessment Airway WDL WDL Respiratory WDL [...] 5-->(V5) oriented Lester Coma Scale Score 15 STRINGER ASSEMBLER * Abdelrahman Goddard MD - 06/12/2024 6:20 PM CST Images from the original note were not included. [facility] ([facility]) 06/12/24 ED PROVIDER NOTE History No chief [...] background: 29 yo F, recently moved from [place] Sickle Cell Disease History Primary Spare Fixer/SEQUENCING MACHINE OPERATOR/PA: Lizzie Genotype: SS Acute Pain 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, [facility] Functional asplenia Gallstones Hb-SS disease without crisis [...] chest pain Rhythm: normal sinus Rate: 94BPM [place]: Normal Ectopy: none Conduction: normal ST Segments/ [...] Rate 102 BPM Atrial Rate 102 BPM FL Interval 158 ms QRS Duration 78 ms QT 348 ms QTc 453 ms P [place] 39 degrees R AXIS 66 degrees T [place] 33 degrees Interpretation ECG Sinus tachycardia Nonspecific T wave abnormality Abnormal ECG When compared with ECG of 05-Jun-2024 11:40, No significant change was found Confirmed by SEE ED PROVIDER NOTE FOR, ECG INTERPRETATION ([id number]), research editor SELMA GARRISON ([id number]) on 06/11/2024 9:05:27 PM Medications - No [...] Hernadez, am serving as a trained medical translator to document services personally performed by Abdelrahman Goddard MD, based on the provider's statements to me. I, Abdelrahman Goddard MD, was physically present and have reviewed and verified the accuracy of this note documented by Jovanny Hernadez. Abdelrahman Goddard MD [facility] EMERGENCY DEPARTMENT 06/12/2024 Abdelrahman Goddard MD 06/12/242023 STRINGER ASSEMBLER documented in this encounter Miscellaneous Notes * Plan of Care - Clay Avina RN - 06/15/2024 9:55 AM CST Goal Outcome Evaluation: Plan of Care Reviewed With: patient Overall Patient Progress: improving 4x A/O. VSS. RA. Independent. AVS reviewed, questions answered. Port de accessed with saline flush and heparin locked. STRINGER ASSEMBLER * Plan of Care - Kathy Levy RN - 06/15/2024 6:22 AM CST Goal Outcome Evaluation: Plan of Care Reviewed With: patient Overall Patient Progress: improving Pt is alert anf oriented x4. VSS, on room air with no SOB noted. On pain management for sickle cellcrisis. Tolerating diet well with no n/v. L chest port infusing intermittent IV ABT. Voiding well. Last BM WORKDAY MANAGER. Pt is up ad chandler. Will continue with plan of care. STRINGER ASSEMBLER * Plan of Care - Clay Avina RN - 06/14/2024 5:02 PM CST Goal Outcome Evaluation: Plan of Care Reviewed With: patient Overall Patient Progress: improving 4x A/O. VSS. Independent. Pain controlled with schedule q2hr IV dilaudid. Tolerating regular diet. Voiding spontaneously. Had nausea in AM, relieved with Zofran. Port SL. STRINGER ASSEMBLER * Pharmacy-Admission Medication History - Lorenza Valdes - 06/14/2024 11:19 AM CST [facility] Admission Medication History Admission medication history is complete. The information provided in this note is only as accurateas the sources available at the time of the update. Information Source(s): Patient and CareEverywhere/SureScripts via in-person Pertinent Information: Medication reconciliation completed at bedside with patient. Patient was a good historian of her medication names, doses, frequencies, and last doses. Changes made to WORKDAY MANAGER medication list: Added: Epi-pen: patient has pen available, but has not used recently. Ibuprofen: OTC product used PRN for pain. Benadryl: OTC product used PRN for itching due to hydromorphone. Deleted: None Changed: None Allergies reviewed with patient and updates made in EHR: yes Medication History Completed By: Lorenza Valdes 06/14/2024 11:19 AM WORKDAY MANAGER Med List Medication Sig Last Dose/Taking [...] Morning naloxone (NARCAN) 4 MG/0.1ML nasal spray [place] 1 spray (4 mg) into one nostril alternating nostrilsas needed for opioid reversal (for opiate overdose if not breathing and unconscious. have your family member watch video on how to use/read information sheet). every 2-3 minutes until assistance arrives Taking As Needed Cosigned by Terrell Fernandez RPH at 06/15/2024 10:33 AM FISH STRINGER ASSEMBLER STRINGER ASSEMBLER STRINGER ASSEMBLER Associated attestation - Terrell Fernandez RPH - 06/15/2024 10:33 AM FISH STRINGER ASSEMBLER I have read and agree with the student's note. Terrell Fernandez, PGY-1 See Supervisor * Provider Notification - Kiki Caal RN - 06/13/2024 7:27 PM FISH STRINGER ASSEMBLER Notified providers Nivia Carvajal, Laquita Kelley and Rl Elias of critical Hgb 6.8 at 1920. No new orders STRINGER ASSEMBLER * Plan of Care - Katheryn Carter RN - 06/13/2024 12:44 PM CST Goal Outcome Evaluation: Plan of Care Reviewed With: patient Overall Patient Progress: improvingOverall Patient Progress: improving Outcome Evaluation: Plan: TBD Katheryn Carter RN, PHN, BSN Float Nurse Radiology Receptionist Covering for Unit ED Phone [phone] STRINGER ASSEMBLER * Plan of Care - Shauna Cuadra [...] with POC. Notify primary team with changes. STRINGER ASSEMBLER documented in this encounter Plan of Treatment Upcoming Encounters Date Type Department Care Team (Late st Contact Info) Description 08/07/2024 7:15 AM CDT Lab [facility] Cancer [address] [phone] Case Samuel MD [address] [place] [address], [address] [address] 08/08/2024 8:00 AM CDT Appointment [facility] Advanced Treatment [address] [phone] Case Samuel MD [address] [place] [address], [address] [address] 10/30/2024 11:30 AM CDT Lab [facility] Cancer [address] [phone] Case Samuel MD [address] [place] [address], [address] [address] 10/30/2024 12:00 PM CDT Oncology Visit [facility] Cancer [address] [phone] Case Samuel MD [address] [facility] [address] [place] [address] Scheduled Referrals Name Type Priority Associated Diagnoses [...] PLATELETS AND DIFFERENTIAL STAT 06/15/2024 6:09 AM FISH STRINGER ASSEMBLER CBC WITH PLATELETS & DIFFERENTIAL STAT 06/15/2024 6:09 AM FISH STRINGER ASSEMBLER BASIC METABOLIC PANEL STAT 06/15/2024 6:09 AM FISH STRINGER ASSEMBLER XR CHEST PORT 1 VIEW STAT 06/14/2024 8:46 AM FISH STRINGER ASSEMBLER BASIC METABOLIC PANEL STAT 06/14/2024 7:08 AM FISH STRINGER ASSEMBLER CBC WITH PLATELETS STAT 06/14/2024 7: 08 AM FISH STRINGER ASSEMBLER CBC WITH PLATELETS STAT 06/13/2024 6: 32 PM FISH STRINGER ASSEMBLER RBC AND PLATELET MORPHOLOGY STAT 06/13/2024 6:00 AM FISH STRINGER ASSEMBLER CBC WITH PLATELETS AND DIFFERENTIAL STAT 06/13/2024 6:00 AM FISH STRINGER ASSEMBLER CBC WITH PLATELETS & DIFFERENTIAL STAT 06/13/2024 6:00 AM FISH STRINGER ASSEMBLER BASIC METABOLIC PANEL STAT 06/13/2024 5:59 AM FISH STRINGER ASSEMBLER RESPIRATORY PANEL PCR STAT 06/12/2024 9:34 PM FISH STRINGER ASSEMBLER BLOOD CULTURE STAT 06/12/2024 8:46 PM FISH STRINGER ASSEMBLER BLOOD CULTURE STAT 06/12/2024 8:46 PM FISH STRINGER ASSEMBLER XR CHEST 2 VIEWS STAT 06/12/2024 7:38 PM FISH STRINGER ASSEMBLER RBC AND PLATELET MORPHOLOGY STAT 06/12/2024 7:17 PM FISH STRINGER ASSEMBLER CBC WITH PLATELETS AND DIFFERENTIAL STAT 06/12/2024 7:17 PM FISH STRINGER ASSEMBLER TYPE AND SCREEN, ADULT Routine 06/12/2024 7:17 PM FISH STRINGER ASSEMBLER TROPONIN T, HIGH SENSITIVITY STAT 06/12/2024 7:17 PM FISH STRINGER ASSEMBLER CBC WITH PLATELETS & DIFFERENTIAL STAT 06/12/2024 7:17 PM FISH STRINGER ASSEMBLER INR STAT 06/12/2024 7:17 PM FISH STRINGER ASSEMBLER BLOOD GAS VENOUS STAT 06/12/2024 7:17 PM FISH STRINGER ASSEMBLER ABO/RH TYPE AND SCREEN Add-On 06/12/2024 7:17 PM FISH STRINGER ASSEMBLER BASIC METABOLIC PANEL STAT 06/12/2024 7:17 PM FISH STRINGER ASSEMBLER EKG 12-LEAD, TRACING ONLY STAT 06/12/2024 6:37 PM FISH STRINGER ASSEMBLER documented in this encounter Results * (ABNORMAL) CBC with platelets and differential (06/15/2024 6:09 AM FISH STRINGER ASSEMBLER) WBC Count 11.8(H) 4.0 - 11.0 10e3/uL 06/15/2024 6:36 AM FISH STRINGER ASSEMBLER [facility] RBC Count 2.27(L) 3.80 - 5.20 10e6/uL 06/15/2024 6:36 AM FISH STRINGER ASSEMBLER [facility] Hemoglobin 7.2(L) 11.7 - 15.7 g/dL 06/15/2024 6:36 AM FISH STRINGER ASSEMBLER [facility] Hematocrit 20.4(L) 35.0 - 47.0 % 06/15/2024 6:36 AM FISH STRINGER ASSEMBLER [facility] MCV 90 78 - 100 fL 06/15/2024 6:36 AM FISH STRINGER ASSEMBLER [facility] MCH 31.7 26.5 - 33.0 pg 06/15/2024 6:36 AM FISH STRINGER ASSEMBLER [facility] MCHC 35.3 31.5 - 36.5 g/dL 06/15/2024 6:36 AM FISH STRINGER ASSEMBLER [facility] RDW 19.0(H) 10.0 - 15.0 % 06/15/2024 6:36 AM FISH STRINGER ASSEMBLER [facility] Platelet Count 500(H) 150 - 450 10e3/uL 06/15/2024 6:36 AM FISH STRINGER ASSEMBLER [facility] % Neutrophils 54 % 06/15/2024 6:36 AM FISH STRINGER ASSEMBLER [facility] % Lymphocytes 31 % 06/15/2024 6:36 AM FISH STRINGER ASSEMBLER [facility] % Monocytes 9 % 06/15/2024 6:36 AM FISH STRINGER ASSEMBLER [facility] % Eosinophils 5 % 06/15/2024 6:36 AM FISH STRINGER ASSEMBLER [facility] % Basophils 2 % 06/15/2024 6:36 AM FISH STRINGER ASSEMBLER [facility] % Immature Granulocytes 1 % 06/15/2024 6:36 AM FISH STRINGER ASSEMBLER [facility] NRBCs per 100 WBC 2(H) <1 /100 025 6:36 AM FISH STRINGER ASSEMBLER [facility] Absolute Neutrophils 6.3 1.6 - 8.3 10e3/uL 06/15/2024 6:36 AM FISH STRINGER ASSEMBLER [facility] Absolute Lymphocytes 3.6 0.8 - 5.3 10e3/uL 06/15/2024 6:36 AM FISH STRINGER ASSEMBLER [facility] Absolute Monocytes 1.0 0.0 - 1.3 10e3/uL 06/15/2024 6:36 AM FISH STRINGER ASSEMBLER [facility] Absolute Eosinophils 0.6 0.0 - 0.7 10e3/uL 06/15/2024 6:36 AM FISH STRINGER ASSEMBLER [facility] Absolute Basophils 0.2 0.0 - 0.2 10e3/uL 06/15/2024 6:36 AM FISH STRINGER ASSEMBLER [facility] Absolute Immature Granulocytes 0.1 <=0.4 10e3/uL 06/15/2024 6:36 AM FISH STRINGER ASSEMBLER [facility] Absolute NRBCs 0.2 10e3/uL 06/15/2024 6:36 AM FISH STRINGER ASSEMBLER [facility] Blood BLOOD SPECIMEN / Unknown IVAD (Port) / Unknown 06/15/2024 6:09 AM FISH STRINGER ASSEMBLER 06/15/2024 6:18 AM FISH STRINGER ASSEMBLER us Rl Elias MD LAB - BLOOD ORDER SYD Final Result [facility] [place] [facility] [address] [facility], Room [address] [place] [phone] * (ABNORMAL) Basic metabolic panel (06/15/2024 6:09 AM FISH STRINGER ASSEMBLER) Sodium 136 135 - 145 mmol/L 06/15/2024 7:13 AM FISH STRINGER ASSEMBLER [facility] Potassium 4.4 3.4 - 5.3 mmol/L 06/15/2024 7:13 AM FISH STRINGER ASSEMBLER [facility] Chloride 104 98 - 107 mmol/L 06/15/2024 7:13 AM FISH STRINGER ASSEMBLER [facility] Carbon Dioxide (CO2) 21(L) 22 - 29 mmol/L 06/15/2024 7:13 AM FISH STRINGER ASSEMBLER [facility] Anion Gap 11 7 - 15 mmol/L 06/15/2024 7:13 AM FISH STRINGER ASSEMBLER [facility] Urea Nitrogen 10.1 6.0 - 20.0 mg/dL 06/15/2024 7:13 AM FISH STRINGER ASSEMBLER [facility] Creatinine 0.65 0.51 - 0.95 mg/dL 06/15/2024 7:13 AM FISH STRINGER ASSEMBLER [facility] GFR Estimate >90 >60 mL/min/1.7 3m2 06/15/2024 7:13 AM FISH STRINGER ASSEMBLER [facility] Comment:eGFR calculated us2020 CKD-EPI equation. Calcium 8.9 8.8 - 10.4 mg/dL 06/15/2024 7:13 AM FISH STRINGER ASSEMBLER [facility] LABORATORY Glucose 104(H) 70 - 99 mg/dL 06/15/2024 7:13 AM FISH STRINGER ASSEMBLER [facility] Blood BLOOD SPECIMEN / Unknown IVAD (Port) / Unknown 06/15/2024 6:09 AM FISH STRINGER ASSEMBLER 06/15/2024 6:16 AM FISH STRINGER ASSEMBLER us Rl Elias MD LAB - BLOOD ORDER SYD Final Result [facility] Core Lab [address] [facility], [address] [place] [phone] * XR Chest Port 1 View (06/14/2024 8:46 AM FISH STRINGER ASSEMBLER) Anatomical Region Laterality Modality Chest Digital Radiogra phy Impressions 06/14/2024 8:59 AM FISH STRINGER ASSEMBLER Impression: Further increase in ill-defined opacity projecting over the right lower lung concerning for pneumonia. MARIO ALBERTO BLACKWOOD MD Narrative 06/14/2024 8:59 AM FISH STRINGER ASSEMBLER Exam: XR CHEST PORT 1 VIEW, 06/14/2024 [...] (ABNORMAL) CBC with platelets (06/14/2024 7:08 AM FISH STRINGER ASSEMBLER) WBC Count 13.4(H) 4.0 - 11.0 10e3/uL 06/14/2024 7:46 AM FISH STRINGER ASSEMBLER [facility] RBC Count 2.30(L) 3.80 - 5.20 10e6/uL 06/14/2024 7:46 AM FISH STRINGER ASSEMBLER [facility] Hemoglobin 6.9(LL) 11.7 - 15.7 g/dL 06/14/2024 7:46 AM FISH STRINGER ASSEMBLER [facility] Hematocrit 21.6(L) 35.0 - 47.0 % 06/14/2024 7:46 AM FISH STRINGER ASSEMBLER [facility] MCV 94 78 - 100 fL 06/14/2024 7:46 AM FISH STRINGER ASSEMBLER [facility] MCH 30.0 26.5 - 33.0 pg 06/14/2024 7:46 AM FISH STRINGER ASSEMBLER [facility] MCHC 31.9 31.5 - 36.5 g/dL 06/14/2024 7:46 AM FISH STRINGER ASSEMBLER [facility] RDW 19.4(H) 10.0 - 15.0 % 06/14/2024 7:46 AM FISH STRINGER ASSEMBLER [facility] Platelet Count 501(H) 150 - 450 10e3/uL 06/14/2024 7:46 AM FISH STRINGER ASSEMBLER [facility] Blood BLOOD SPECIMEN / Unknown Venipuncture / Unknown 06/14/2024 7:08 AM FISH STRINGER ASSEMBLER 06/14/2024 7:22 AM FISH STRINGER ASSEMBLER Rl Elias MD LAB - BLOOD ORDER SYD Final Result [facility] [place] Core Lab [address] [facility], [address] [place] [address], [facility] * (ABNORMAL) Basic metabolic panel (06/14/2024 7:08 AM FISH STRINGER ASSEMBLER) Sodium 136 135 - 145 mmol/L 06/14/2024 7:57 AM FISH STRINGER ASSEMBLER [facility] Potassium 4.2 3.4 - 5.3 mmol/L 06/14/2024 7:57 AM FISH STRINGER ASSEMBLER [facility] Chloride 107 98 - 107 mmol/L 06/14/2024 7:57 AM FISH STRINGER ASSEMBLER [facility] Carbon Dioxide (CO2) 20(L) 22 - 29 mmol/L 06/14/2024 7:57 AM FISH STRINGER ASSEMBLER [facility] Anion Gap 9 7 - 15 mmol/L 06/14/2024 7:57 AM FISH STRINGER ASSEMBLER [facility] Urea Nitrogen 6.5 6.0 - 20.0 mg/dL 06/14/2024 7:57 AM FISH STRINGER ASSEMBLER [facility] Creatinine 0.71 0.51 - 0.95 mg/dL 06/14/2024 7:57 AM FISH STRINGER ASSEMBLER [facility] GFR Estimate >90 >60 mL/min/1.7 3m2 06/14/2024 7:57 AM FISH STRINGER ASSEMBLER [facility] Comment:eGFR calculated us2020 CKD-EPI equation. Calcium 8.9 8.8 - 10.4 mg/dL 06/14/2024 7:57 AM FISH STRINGER ASSEMBLER [facility] Glucose 92 70 - 99 mg/dL 06/14/2024 7:57 AM FISH STRINGER ASSEMBLER [facility] Blood BLOOD SPECIMEN / Unknown Venipuncture / Unknown 06/14/2024 7:08 AM FISH STRINGER ASSEMBLER 06/14/2024 7:22 AM FISH STRINGER ASSEMBLER Rl Elias MD LAB - BLOOD ORDER SYD Final Result [facility] [place] Core Lab [address] [facility], [address] [place] [address], [facility] * (ABNORMAL) CBC with platelets (06/13/2024 6:32 PM FISH STRINGER ASSEMBLER) WBC Count 15.3(H) 4.0 - 11.0 10e3/uL 06/13/2024 7:10 PM FISH STRINGER ASSEMBLER [facility] RBC Count 2.21(L) 3.80 - 5.20 10e6/uL 06/13/2024 7:10 PM FISH STRINGER ASSEMBLER [facility] Hemoglobin 6.8(LL) 11.7 - 15.7 g/dL 06/13/2024 7:10 PM FISH STRINGER ASSEMBLER [facility] Hematocrit 20.8(L) 35.0 - 47.0 % 06/13/2024 7:10 PM FISH STRINGER ASSEMBLER [facility] MCV 94 78 - 100 fL 06/13/2024 7:10 PM FISH STRINGER ASSEMBLER [facility] MCH 30.8 26.5 - 33.0 pg 06/13/2024 7:10 PM FISH STRINGER ASSEMBLER [facility] MCHC 32.7 31.5 - 36.5 g/dL 06/13/2024 7:10 PM FISH STRINGER ASSEMBLER [facility] RDW 19.6(H) 10.0 - 15.0 % 06/13/2024 7:10 PM FISH STRINGER ASSEMBLER [facility] Platelet Count 495(H) 150 - 450 10e3/uL 06/13/2024 7:10 PM FISH STRINGER ASSEMBLER [facility] Blood CENTRAL VENOUS CATHETER / Unknown VAD(CVC, PICC) / Unknown 06/13/2024 6:32 PM FISH STRINGER ASSEMBLER 06/13/2024 6:52 PM FISH STRINGER ASSEMBLER us Rl Elias MD LAB - BLOOD ORDER SYD Final Result [facility] [place] Core Lab [address] [facility], [address] [place] [phone] * (ABNORMAL) RBC and Platelet Morphology (06/13/2024 6:00 AM FISH STRINGER ASSEMBLER) RBC Morphology Confirmed RBC Indices 06/13/2024 3:45 PM FISH STRINGER ASSEMBLER [facility] Platelet Assessment Automated Count Confirmed. Platelet morphology is normal. Automated Count Confirmed. Platelet morphology is normal. 06/13/2024 3:45 PM FISH STRINGER ASSEMBLER [facility] Polychromasia Moderate(A) None Seen 06/13/2024 3:45 PM FISH STRINGER ASSEMBLER [facility] Sickle Cells Moderate(A) None Seen 06/13/2024 3:45 PM FISH STRINGER ASSEMBLER [facility] Target Cells Moderate(A) None Seen 06/13/2024 3:45 PM FISH STRINGER ASSEMBLER [facility] Pathologist Review Comments (Blood) Sickle shaped red blood cells are present compatible with patient's history of sickle cell disease. [place] bodies are present compatible with hyposplenic blood picture. There is increased lymphocytes; however, the morphology of lymphocytes is polymorphous. Follow up CBC, diff for resolution of this findings is recommended. Danny Martinez MD on 06/13/2024 at 3:44 PM 06/13/2024 3:45 PM FISH STRINGER ASSEMBLER [facility] Comment:This is an appended report. These results have been appended to a previously final verified report. Blood VENOUS LINE / Unknown IVAD (Port) / Unknown 06/13/2024 6:00 AM FISH STRINGER ASSEMBLER 06/13/2024 6:16 AM FISH STRINGER ASSEMBLER us Laquita Kelley MD LAB - BLOOD ORDERABLES Edited R esult - Final [facility] Specialty Lab [address] [facility], [address] [facility] [place] Core Lab [address] [facility], [address] * (ABNORMAL) CBC with platelets and differential (06/13/2024 6:00 AM FISH STRINGER ASSEMBLER) WBC Count 17.0(H) 4.0 - 11.0 10e3/uL 06/13/2024 9:51 AM FISH STRINGER ASSEMBLER [facility] RBC Count 2.11(L) 3.80 - 5.20 10e6/uL 06/13/2024 9:51 AM FISH STRINGER ASSEMBLER [facility] Hemoglobin 6.4(LL) 11.7 - 15.7 g/dL 06/13/2024 9:51 AM FISH STRINGER ASSEMBLER [facility] Hematocrit 20.3(L) 35.0 - 47.0 % 06/13/2024 9:51 AM FISH STRINGER ASSEMBLER [facility] MCV 96 78 - 100 fL 06/13/2024 9:51 AM FISH STRINGER ASSEMBLER [facility] MCH 30.3 26.5 - 33.0 pg 06/13/2024 9:51 AM FISH STRINGER ASSEMBLER [facility] MCHC 31.5 31.5 - 36.5 g/dL 06/13/2024 9:51 AM FISH STRINGER ASSEMBLER [facility] RDW 19.8(H) 10.0 - 15.0 % 06/13/2024 9:51 AM FISH STRINGER ASSEMBLER [facility] Platelet Count 458(H) 150 - 450 10e3/uL 06/13/2024 9:51 AM FISH STRINGER ASSEMBLER [facility] % Neutrophils 40 % 06/13/2024 9:51 AM FISH STRINGER ASSEMBLER [facility] % Lymphocytes 42 % 06/13/2024 9:51 AM FISH STRINGER ASSEMBLER [facility] % Monocytes 13 % 06/13/2024 9:51 AM FISH STRINGER ASSEMBLER [facility] % Eosinophils 3 % 06/13/2024 9:51 AM FISH STRINGER ASSEMBLER [facility] % Basophils 1 % 06/13/2024 9:51 AM FISH STRINGER ASSEMBLER [facility] % Immature Granulocytes 1 % 06/13/2024 9:51 AM FISH STRINGER ASSEMBLER [facility] NRBCs per 100 WBC 0 <1 /100 025 9:51 AM FISH STRINGER ASSEMBLER [facility] Absolute Neutrophils 6.7 1.6 - 8.3 10e3/uL 06/13/2024 9:51 AM FISH STRINGER ASSEMBLER [facility] Absolute Lymphocytes 7.2(H) 0.8 - 5.3 10e3/uL 06/13/2024 9:51 AM FISH STRINGER ASSEMBLER [facility] Absolute Monocytes 2.2(H) 0.0 - 1.3 10e3/uL 06/13/2024 9:51 AM FISH STRINGER ASSEMBLER [facility] Absolute Eosinophils 0.5 0.0 - 0.7 10e3/uL 06/13/2024 9:51 AM FISH STRINGER ASSEMBLER [facility] Absolute Basophils 0.2 0.0 - 0.2 10e3/uL 06/13/2024 9:51 AM FISH STRINGER ASSEMBLER [facility] Absolute Immature Granulocytes 0.1 <=0.4 10e3/uL 06/13/2024 9:51 AM FISH STRINGER ASSEMBLER [facility] Absolute NRBCs 0.1 10e3/uL 06/13/2024 9:51 AM FISH STRINGER ASSEMBLER [facility] Blood VENOUS LINE / Unknown IVAD (Port) / Unknown 06/13/2024 6:00 AM FISH STRINGER ASSEMBLER 06/13/2024 6:16 AM FISH STRINGER ASSEMBLER Narrative [facility] - 06/13/2024 9:51 AM FISH STRINGER ASSEMBLER Sent for review by Pathologist. See Pathologist comments after review. Tech Comments Patient Diagnosis: Sickle Cell crisis Reason for Sending: absolute lymphocyte > 5.4 us Laquita Kelley MD LAB - BLOOD ORDERABLES Final Re sult [facility] Specialty Lab [address] [facility], [address] [phone], [facility] [place] Core Lab [address] [facility], [address] [address], [facility] * (ABNORMAL) Basic metabolic panel (06/13/2024 5:59 AM FISH STRINGER ASSEMBLER) Sodium 135 135 - 145 mmol/L 06/13/2024 6:45 AM FISH STRINGER ASSEMBLER [facility] Potassium 4.3 3.4 - 5.3 mmol/L 06/13/2024 6:45 AM FISH STRINGER ASSEMBLER [facility] Chloride 105 98 - 107 mmol/L 06/13/2024 6:45 AM FISH STRINGER ASSEMBLER [facility] Carbon Dioxide (CO2) 21(L) 22 - 29 mmol/L 06/13/2024 6:45 AM FISH STRINGER ASSEMBLER [facility] Anion Gap 9 7 - 15 mmol/L 06/13/2024 6:45 AM FISH STRINGER ASSEMBLER [facility] Urea Nitrogen 4.9(L) 6.0 - 20.0 mg/dL 06/13/2024 6:45 AM FISH STRINGER ASSEMBLER [facility] Creatinine 0.70 0.51 - 0.95 mg/dL 06/13/2024 6:45 AM FISH STRINGER ASSEMBLER [facility] GFR Estimate >90 >60 mL/min/1.7 3m2 06/13/2024 6:45 AM FISH STRINGER ASSEMBLER [facility] Comment:eGFR calculated usin 2020 CKD-EPI equation. Calcium 8.7(L) 8.8 - 10.4 mg/dL 06/13/2024 6:45 AM FISH STRINGER ASSEMBLER [facility] Glucose 100(H) 70 - 99 mg/dL 06/13/2024 6:45 AM FISH STRINGER ASSEMBLER [facility] Blood VENOUS LINE / Unknown IVAD (Port) / Unknown 06/13/2024 5:59 AM FISH STRINGER ASSEMBLER 06/13/2024 6:16 AM FISH STRINGER ASSEMBLER Laquita Kelley MD LAB - BLOOD ORDERABLES Final Re sult [facility] [place] Core Lab [address] [facility], [address] [place] [phone] * Respiratory Panel PCR (06/12/2024 9:34 PM FISH STRINGER ASSEMBLER) Pathologist [facility] Adenovirus Not Detected Not Detected 06/12/2024 11:53 PM FISH STRINGER ASSEMBLER [facility] Coronavirus Not Detected Not Detected 06/12/2024 11:53 PM FISH STRINGER ASSEMBLER [facility] Comment:This test detects Co ronavirus 229E, HKU1, NL63 and OC43 but does not distinguish between them. It does not detect MERS ( Respiratory Syndrome), SARS (Severe Acute Respiratory Syndrome) or 2019-nCoV (Novel 2019) Coronavirus. Human Metapneumovirus Not Detected Not Detected 06/12/2024 11:53 PM FISH STRINGER ASSEMBLER [facility] Human Rhin/Enterovirus Not Detected Not Detected 06/12/2024 11:53 PM FISH STRINGER ASSEMBLER [facility] Influenza A Not Detected Not Detected 06/12/2024 11:53 PM FISH STRINGER ASSEMBLER [facility] Influenza A, H1 Not Detected Not Detected 06/12/2024 11:53 PM FISH STRINGER ASSEMBLER [facility] Influenza A 2009 H1N1 Not Detected Not Detected 06/12/2024 11:53 PM FISH STRINGER ASSEMBLER [facility] Influenza A, H3 Not Detected Not Detected 06/12/2024 11:53 PM FISH STRINGER ASSEMBLER [facility] Influenza B Not Detected Not Detected 06/12/2024 11:53 PM FISH STRINGER ASSEMBLER [facility] Parainfluenza Virus 1 Not Detected Not Detected 06/12/2024 11:53 PM FISH STRINGER ASSEMBLER [facility] Parainfluenza Virus 2 Not Detected Not Detected 06/12/2024 11:53 PM FISH STRINGER ASSEMBLER [facility] Parainfluenza Virus 3 Not Detected Not Detected 06/12/2024 11:53 PM FISH STRINGER ASSEMBLER [facility] Parainfluenza Virus 4 Not Detected Not Detected 06/12/2024 11:53 PM FISH STRINGER ASSEMBLER [facility] Respiratory Syncytial Virus A Not Detected Not Detected 06/12/2024 11:53 PM FISH STRINGER ASSEMBLER [facility] Respiratory Syncytial Virus B Not Detected Not Detected 06/12/2024 11:53 PM FISH STRINGER ASSEMBLER [facility] Chlamydia Pneumoniae Not Detected Not Detected 06/12/2024 11:53 PM FISH STRINGER ASSEMBLER [facility] Mycoplasma Pneumoniae Not Detected Not Detected 06/12/2024 11:53 PM FISH STRINGER ASSEMBLER [facility] Swab NASOPHARYNGEAL STRUCTURE / Unknown Non-blood Collection / Unknown 06/12/2024 9:34 PM FISH STRINGER ASSEMBLER 06/12/2024 9:47 PM FISH STRINGER ASSEMBLER Narrative [facility] - 06/12/2024 11:53 PM FISH STRINGER ASSEMBLER The ePlex Respiratory Panel is a qualitative nucleic acid, multiplex, in vitro diagnostic test for the simultaneous detection and identification of multiple respiratory viral and bacterial nucleic acids in nasopharyngeal swabs collected in viral transport media from individual exhibiting signs and symptoms of respiratory infection. The assay has received FDA approval for the testing of nasopharyngeal (SEQUENCING MACHINE OPERATOR) swabs only. This test is used for clinical purposes and should not be regarded as investigational or for research. This laboratory is certified under the Clinical Laboratory Improvement Amendments of 1988 (CLIA-88) as qualified to perform high complexity clinical laboratory testing. us Abdelrahman Goddard MD LAB - MICRO GENERAL ORDERABLES Final Result Performing Organization Address City/[facility]/ZIP Co de Phone Number [facility] Inf. Diseases Diag. Lab [address] [facility], [address] * Blood Culture Peripheral Blood (06/12/2024 8:46 PM FISH STRINGER ASSEMBLER) Culture No Growth 06/17/2024 9:31 PM FISH STRINGER ASSEMBLER [facility] Blood BLOOD SPECIMEN / Unknown Venipuncture / Unknown 06/12/2024 8:46 PM FISH STRINGER ASSEMBLER 06/12/2024 8:53 PM FISH STRINGER ASSEMBLER Narrative [facility] - 06/17/2024 9:31 PM FISH STRINGER ASSEMBLER Only an Aerobic Blood Culture Bottle was collected, interpret results with caution. Abdelrahman Goddard MD LAB - MICRO GENERAL ORDERABLES Final Result [facility] Inf. Diseases Diag. Lab [address] [facility], [address] * Blood Culture Peripheral Blood (06/12/2024 8:46 PM FISH STRINGER ASSEMBLER) Culture No Growth 06/17/2024 9:31 PM FISH STRINGER ASSEMBLER [facility] Blood BLOOD SPECIMEN / Unknown Venipuncture / Unknown 06/12/2024 8:46 PM FISH STRINGER ASSEMBLER 06/12/2024 8:53 PM FISH STRINGER ASSEMBLER us Abdelrahman Goddard MD LAB - MICRO GENERAL ORDERABLES Final Result [facility] Inf. Diseases Diag. Lab [address] [facility], [address] [place] [phone] * XR Chest 2 Views (06/12/2024 7:38 PM FISH STRINGER ASSEMBLER) Anatomical Region Laterality Modality Chest Computed Radiogr aphy 06/12/2024 7:38 PM FISH STRINGER ASSEMBLER Impressions 06/12/2024 7:42 PM FISH STRINGER ASSEMBLER IMPRESSION: A few faint peripheral reticulonodular opacities in the mid and lower lungs again seen. Lungs otherwise clear. No pleural effusion. No pneumothorax. Borderline cardiac enlargement unchanged. Port anterior right chest wall with right IJ central venous catheter tip low SVC. Port anterior left chest wall with left IJ central venous catheter tip low SVC. Narrative 06/12/2024 7:42 PM FISH STRINGER ASSEMBLER EXAM: XR CHEST 2 VIEWS LOCATION: [facility] DATE: 06/12/2024 INDICATION: CP COMPARISON: 06/03/2024, 05/27/2024 Procedure Note Surendra Hou MD - 06/12/2024 EXAM: XR CHEST 2 VIEWS LOCATION: [facility] DATE: 06/12/2024 INDICATION: CP COMPARISON: 06/03/2024, [...] Adult Type and Screen (06/12/2024 7:17 PM FISH STRINGER ASSEMBLER) ABO/RH(D) A POS 06/13/2024 9:17 AM FISH STRINGER ASSEMBLER [facility] Antibody Screen Negative Negative 06/13/2024 9:17 AM FISH STRINGER ASSEMBLER U B[facility] BANK Comment:Current antibody scr een is negative. Patient has a history of antibody(ies). A delay in compatible red blood cells may occur. SPECIMEN EXPIRATION DATE [id number] 06/13/2024 9:17 AM FISH STRINGER ASSEMBLER [facility] Blood BLOOD SPECIMEN / Unknown Venipuncture / Unknown 06/12/2024 7:17 PM FISH STRINGER ASSEMBLER 06/12/2024 7:32 PM FISH STRINGER ASSEMBLER Carmen Aviles PA-C LAB - BLOOD BANK TEST ORDER Final Result Performing Organization Address [facility]/ZIP Co de Phone Number BLOOD BANK [address] [place] [phone] * (ABNORMAL) RBC and Platelet Morphology (06/12/2024 7:17 PM FISH STRINGER ASSEMBLER) Pathologist [facility] RBC Morphology Confirmed RBC Indices 06/12/2024 8:57 PM FISH STRINGER ASSEMBLER [facility] Platelet Assessment Automated Count Confirmed. Platelet morphology is normal. Automated Count Confirmed. Platelet morphology is normal. 06/12/2024 8:57 PM FISH STRINGER ASSEMBLER [facility] Polychromasia Slight(A) None Seen 06/12/2024 8:57 PM FISH STRINGER ASSEMBLER [facility] Sickle Cells Moderate(A) None Seen 06/12/2024 8:57 PM FISH STRINGER ASSEMBLER [facility] Target Cells Moderate(A) None Seen 06/12/2024 8:57 PM FISH STRINGER ASSEMBLER [facility] Blood BLOOD SPECIMEN / Unknown Venipuncture / Unknown 06/12/2024 7:17 PM FISH STRINGER ASSEMBLER 06/12/2024 7:32 PM FISH STRINGER ASSEMBLER Abdelrahman Goddard MD LAB - BLOOD ORDERABLES Final R esult U LAB[facility]ATORY [facility] [place] Core Lab [address] [facility] [address], [address] [place] [phone] * (ABNORMAL) CBC with platelets and differential (06/12/2024 7:17 PM FISH STRINGER ASSEMBLER) WBC Count 12.5(H) 4.0 - 11.0 10e3/uL 06/12/2024 7:54 PM FISH STRINGER ASSEMBLER [facility] RBC Count 2.44(L) 3.80 - 5.20 10e6/uL 06/12/2024 7:54 PM FISH STRINGER ASSEMBLER [facility] Hemoglobin 7.5(L) 11.7 - 15.7 g/dL 06/12/2024 7:54 PM FISH STRINGER ASSEMBLER [facility] Hematocrit 22.2(L) 35.0 - 47.0 % 06/12/2024 7:54 PM FISH STRINGER ASSEMBLER [facility] MCV 91 78 - 100 fL 06/12/2024 7:54 PM FISH STRINGER ASSEMBLER [facility] MCH 30.7 26.5 - 33.0 pg 06/12/2024 7:54 PM FISH STRINGER ASSEMBLER [facility] MCHC 33.8 31.5 - 36.5 g/dL 06/12/2024 7:54 PM FISH STRINGER ASSEMBLER [facility] RDW 19.5(H) 10.0 - 15.0 % 06/12/2024 7:54 PM FISH STRINGER ASSEMBLER [facility] Platelet Count 542(H) 150 - 450 10e3/uL 06/12/2024 7:54 PM FISH STRINGER ASSEMBLER [facility] % Neutrophils 57 % 06/12/2024 7:54 PM FISH STRINGER ASSEMBLER [facility] % Lymphocytes 24 % 06/12/2024 7:54 PM FISH STRINGER ASSEMBLER [facility] % Monocytes 16 % 06/12/2024 7:54 PM FISH STRINGER ASSEMBLER [facility] % Eosinophils 1 % 06/12/2024 7:54 PM FISH STRINGER ASSEMBLER [facility] % Basophils 1 % 06/12/2024 7:54 PM FISH STRINGER ASSEMBLER [facility] % Immature Granulocytes 0 % 06/12/2024 7:54 PM FISH STRINGER ASSEMBLER [facility] NRBCs per 100 WBC 1(H) <1 /100 025 7:54 PM FISH STRINGER ASSEMBLER [facility] Absolute Neutrophils 7.1 1.6 - 8.3 10e3/uL 06/12/2024 7:54 PM FISH STRINGER ASSEMBLER [facility] Absolute Lymphocytes 3.0 0.8 - 5.3 10e3/uL 06/12/2024 7:54 PM FISH STRINGER ASSEMBLER [facility] Absolute Monocytes 2.0(H) 0.0 - 1.3 10e3/uL 06/12/2024 7:54 PM FISH STRINGER ASSEMBLER [facility] Absolute Eosinophils 0.2 0.0 - 0.7 10e3/uL 06/12/2024 7:54 PM FISH STRINGER ASSEMBLER [facility] Absolute Basophils 0.2 0.0 - 0.2 10e3/uL 06/12/2024 7:54 PM FISH STRINGER ASSEMBLER [facility] Absolute Immature Granulocytes 0.1 <=0.4 10e3/uL 06/12/2024 7:54 PM FISH STRINGER ASSEMBLER [facility] Absolute NRBCs 0.1 10e3/uL 06/12/2024 7:54 PM FISH STRINGER ASSEMBLER [facility] Blood BLOOD SPECIMEN / Unknown Venipuncture / Unknown 06/12/2024 7:17 PM FISH STRINGER ASSEMBLER 06/12/2024 7:32 PM FISH STRINGER ASSEMBLER us Abdelrahman Goddard MD LAB - BLOOD ORDERABLES Final R esult [facility] [place] Core Lab [address] [facility], [address] [phone] * (ABNORMAL) Blood gas venous (06/12/2024 7:17 PM FISH STRINGER ASSEMBLER) pH Venous 7.38 7.32 - 7.43 06/12/2024 7:40 PM FISH STRINGER ASSEMBLER [facility] pCO2 Venous 42 40 - 50 mm Hg 06/12/2024 7:40 PM FISH STRINGER ASSEMBLER [facility] pO2 Venous 35 25 - 47 mm Hg 06/12/2024 7:40 PM FISH STRINGER ASSEMBLER [facility] Bicarbonate Venous 24 21 - 28 mmol/L 06/12/2024 7:40 PM FISH STRINGER ASSEMBLER [facility] Base Excess/Deficit Venous -0.9 -3.0 - 3.0 mmol/L 06/12/2024 7:40 PM FISH STRINGER ASSEMBLER [facility] FIO2 21 JARET 06/12/2024 7:40 PM FISH STRINGER ASSEMBLER [facility] Oxyhemoglobin Venous 61(L) 70 - 75 % 06/12/2024 7:40 PM FISH STRINGER ASSEMBLER [facility] O2 Sat, Venous 63.9(L) 70.0 - 75.0 % 06/12/2024 7:40 PM FISH STRINGER ASSEMBLER [facility] Blood, venous VENOUS LINE / Unknown Venipuncture / Unknown 06/12/2024 7:17 PM FISH STRINGER ASSEMBLER 06/12/2024 7:30 PM FISH STRINGER ASSEMBLER Narrative LABORATORY - 06/12/2024 7:40 PM FISH STRINGER ASSEMBLER In healthy individuals, oxyhemoglobin (O2Hb) and oxygen saturation (SO2) are approximately equal. In the presence of dyshemoglobins, oxyhemoglobin can be considerably lower than oxygen saturation. Abdelrahman Goddard MD LAB - BLOOD ORDERABLES Final R esult LABORATORY [facility] [place] Core Lab [address] [facility], [address] [place] [address], [facility] * Troponin T, High Sensitivity (06/12/2024 7:17 PM FISH STRINGER ASSEMBLER) [facility] Troponin T, High Sensitivity <6 <=14 ng/L 06/12/2024 8:03 PM FISH STRINGER ASSEMBLER LABORATORY Comment: Either a High Sensitivity Troponin [...] Unknown Venipuncture / Unknown 06/12/2024 7:17 PM FISH STRINGER ASSEMBLER 06/12/2024 7:32 PM FISH STR[employer] Abdelrahman Goddard MD LAB - BLOOD ORDERABLES Final R esult Performing Organization Address City/[facility]/ZIP Co de Phone Number LABORATORY [facility] [place] [facility] [address] [facility] [facility] [place] [address], [facility] * (ABNORMAL) Basic metabolic panel (06/12/2024 7:17 PM [employer]SEMBLER) Sodium 139 135 - 145 mmol/L 06/12/2024 8:03 PM [employer] [facility] Potassium 4.3 3.4 - 5.3 mmol/L 06/12/2024 8:03 PM [employer] [facility] Chloride 109(H) 98 - 107 mmol/L 06/12/2024 8:03 PM [employer] [facility] Carbon Dioxide (CO2) 21(L) 22 - 29 mmol/L 06/12/2024 8:03 PM [employer] [facility] Anion Gap 9 7 - 15 mmol/L 06/12/2024 8:03 PM [employer] [facility] Urea Nitrogen 5.9(L) 6.0 - 20.0 mg/dL 06/12/2024 8:03 PM [employer] [facility] Creatinine 0.61 0.51 - 0.95 mg/dL 06/12/2024 8:03 PM [employer]SEM[employer] [facility] GFR Estimate >90 >60 mL/min/1.7 3m2 06/12/2024 8:03 PM [employer] [facility] Comment:eGFR calculated 2020 CKD-EPI equation. Calcium 9.4 8.8 - 10.4 mg/dL 06/12/2024 8:03 PM [employer] [facility] Glucose 97 70 - 99 mg/dL 06/12/2024 8:03 PM [employer] [facility] Blood BLOOD SPECIMEN / Unknown Venipuncture / Unknown 06/12/2024 7:17 PM [employer]ER 06/12/2024 7:32 PM [employer] Abdelrahman Goddard MD LAB - BLOOD ORDERABLES Final R esult [facility] [place] [facility] [address] [facility] [facility], [address] [place] [address], [facility] * (ABNORMAL) INR (06/12/2024 7:17 PM FISH STRINGER ASSEMBLER) INR 1.37(H) 0.85 - 1.15 06/12/2024 7:54 PM FISH STRINGER ASSEMBLER [facility] Blood BLOOD SPECIMEN / Unknown Venipuncture / Unknown 06/12/2024 7:17 PM FISH STRINGER ASSEMBLER 06/12/2024 7:32 PM FISH STRINGER ASSEMBLER Abdelrahman Goddard MD LAB - BLOOD ORDERABLES Final R esult [facility] [place] [facility] [address] Building, Room [address] [phone] * EKG 12-lead, tracing only (06/12/2024 6:37 PM FISH STRINGER ASSEMBLER) Systolic Blood Pressure mmHg RADIOLOGY RESULTS Diastolic Blood Pressure mmHg RADIOLOGY RESULTS Ventricular Rate 94 BPM RAD IOLOGY RESULTS Atrial Rate 94 BPM RADIOLOG Y RESULTS FL Interval 146 ms RADIOLOG Y RESULTS QRS Duration 84 ms RADIOLO GY RESULTS QT 346 ms RADIOLOGY RESULTS QTc 432 ms RADIOLOGY RESULTS P [place] 31 degrees RADIOLOGY RESULTS R AXIS 85 degrees RADIOLOGY RESULTS T [place] 36 degrees RADIOLOGY RESULTS Interpretation ECG Sinus rhythm Normal ECG Unconfirmed report - interpretation of this ECG is computer generated - see medical record for final interpretation Confirmed by - EMERGENCY ROOM, PHYSICIAN ([id number]), research editor CLAUDIO ASTORGA ([id number]) on 06/13/2024 7:17:59 AM RADIOLOGY RESULTS 06/12/2024 6:37 PM FISH STRINGER ASSEMBLER 06/13/2024 7:17 AM FISH STRINGER ASSEMBLER Alex Morton MD ECG ORDERABLES Edited Resul [...] within 2 weeks. $Given 06/15/2024 8:05 AM FISH STRINGER ASSEMBLER 2 puffs $Given 06/14/2024 7:59 PM FISH STRINGER ASSEMBLER 2 puffs $Given 06/14/2024 4:39 PM FISH STRINGER ASSEMBLER 2 puffs albuterol (PROVENTIL HFA/VENTOLIN HFA) inhaler [...] Indications: SepsisIndications:Sepsis $New Bag 06/12/2024 9:31 PM FISH STRINGER ASSEMBLER 500 mg 250 mL /hr azithromycin (ZITHROMAX) 500 mg in sodium chloride 0.9 % 250 mL intermittent infusion Routine, 500 mg, Intravenous, EVERY 24 HOURS, First dose on Wed06/13/24 at 2100, Indications: Acute chest syndromeIndications:Acute chest syndrome $New Bag 06/13/2024 10:04 PM FISH STRINGER ASSEMBLER 500 mg azithromycin (ZITHROMAX) tablet 500 mg Routine, 500 mg, Oral, DAILY, First dose on Wed06/14/24 at 1200, Indications: Community Acquired PneumoniaIndications:Community Acquired Pneumonia $Given 06/15/2024 8:05 AM FISH STRINGER ASSEMBLER 500 mg $Given 06/14/2024 12:38 PM FISH STRINGER ASSEMBLER 500 mg cefTRIAXone (ROCEPHIN) 1 g vial to attach to NS 100 mL bag for ADULTS or NS 50 mL bag for PEDS STAT, 1 g, Intravenous, ONCE, On Wed06/12/24 at 2005, For 1 dose, Lactated Ringer's solution is not compatible with ceftriaxone for injection, Indications: SepsisIndications:Sepsis $New Bag 06/12/2024 8:39 PM FISH STRINGER ASSEMBLER 1 g cefTRIAXone (ROCEPHIN) 2 g vial to attach to NS 100 ml bag for ADULTS or NS 50 ml bag for PEDS Routine, 2 g, Intravenous, EVERY 24 HOURS, First dose on Wed06/13/24 at 2000, Lactated Ringer's solution is not compatible with ceftriaxone for injection, Indications: Acute chest syndromeIndications:Acute chest syndrome $New Bag 06/14/2024 8:00 PM FISH STRINGER ASSEMBLER 2 g $New Bag 06/13/2024 8:16 PM FISH STRINGER ASSEMBLER 2 g diclofenac (VOLTAREN) 1 % topical gel 2 g 2 g, Topical, 4 TIMES DAILY PRN, inflammatory pain, Starting on Wed06/14/24 at 0912, Apply to area of pain. Use supplied dosing card to measure dose. $Given 06/15/2024 8:10 AM FISH STRINGER ASSEMBLER 2 g $Given 06/14/2024 12:38 PM FISH STRINGER ASSEMBLER 2 g diphenhydrAMINE (BENADRYL) capsule 25 mg 25 mg, Oral, EVERY 6 HOURS PRN, itching, Starting on Wed06/12/24 at 2139 $Given 06/14/2024 12:38 PM FISH STRINGER ASSEMBLER 25 mg $Given 06/13/2024 10:54 PM FISH STRINGER ASSEMBLER 25 mg $Given 06/13/2024 12:12 PM FISH STRINGER ASSEMBLER 25 mg diphenhydrAMINE (BENADRYL) injection 25 mg 25 mg, Intravenous, EVERY 6 HOURS PRN, itching, Starting on Wed06/12/24 at 2139 $Given 06/13/2024 5:39 AM FISH STRINGER ASSEMBLER 25 mg $Given 06/12/2024 10:41 PM FISH STRINGER ASSEMBLER 25 mg enoxaparin ANTICOAGULANT (LOVENOX) injection 40 mg 40 mg, Subcutaneous, EVERY 24 HOURS, First dose on Wed06/13/24 at 0800, Contact provider if platelet count drops by 50% or more after enoxaparin initiation OR if platelet count falls below 50 x 10e3/uL $Given 06/15/2024 7:59 AM FISH STRINGER ASSEMBLER 40 mg $Given 06/14/2024 8:29 AM FISH STRINGER ASSEMBLER 40 mg $Given 06/13/2024 7:49 AM FISH STRINGER ASSEMBLER 40 mg FLUoxetine (PROzac) capsule 10 mg 10 mg, Oral, DAILY, First dose on Wed06/13/24 at 0800 $Given 06/14/2024 2:37 PM FISH STRINGER ASSEMBLER 10 mg $Given 06/13/2024 7:50 AM FISH STRINGER ASSEMBLER 10 mg folic acid (FOLVITE) tablet 1 mg 1 mg, Oral, DAILY, First dose on Wed06/13/24 at 0800 $Given 06/15/2024 8:05 AM FISH STRINGER ASSEMBLER 1 mg $Given 06/14/2024 8:29 AM FISH STRINGER ASSEMBLER 1 mg $Given 06/13/2024 7:49 AM FISH STRINGER ASSEMBLER 1 mg heparin lock flush 10 unit/mL [...] For 1 dose $Given 06/12/2024 7:24 PM FISH STRINGER ASSEMBLER 2 mg hydromorphone (DILAUDID) injection 2 mg 2 mg, Intravenous, ONCE, On Wed06/12/24 at 2010, For 1 dose $Given 06/12/2024 8:14 PM FISH STRINGER ASSEMBLER 2 mg hydromorphone (DILAUDID) injection 2 mg 2 mg, Intravenous, EVERY 3 HOURS PRN, moderate pain, IF patient cannot take oral opioid OR IF pain not managed with non-pharmacological, non-opioid, or oral opioid interventions if ordered, Starting on Wed06/12/24 at 2237, May use concomitant with non-opioid analgesics. $Given 06/12/2024 11:31 PM FISH STRINGER ASSEMBLER 2 mg hydromorphone (DILAUDID) injection 2 mg 2 mg, Intravenous, ONCE, On Wed06/12/24 at 2135, For 1 dose $Given 06/12/2024 9:46 PM FISH STRINGER ASSEMBLER 2 mg hydromorphone (DILAUDID) injection 2 mg 2 mg, Intravenous, EVERY 2 HOURS PRN, moderate pain, IF patient cannot take oral opioid OR IF pain not managed with non-pharmacological, non-opioid, or oral opioid interventions if ordered, Starting on Wed06/13/24 at 0132, May use concomitant with non-opioid analgesics. $Given 06/14/2024 12:38 PM FISH STRINGER ASSEMBLER 2 mg $Given 06/14/2024 10:31 AM FISH STRINGER ASSEMBLER 2 mg $Given 06/14/2024 8:29 AM FISH STRINGER ASSEMBLER 2 mg hydromorphone (DILAUDID) injection 2 mg 2 mg, Intravenous, EVERY 2 HOURS, First dose (after last modification) on Wed06/14/24 at 1415, May use concomitant with non-opioid analgesics. $Given 06/15/2024 7:58 AM FISH STRINGER ASSEMBLER 2 mg $Given 06/15/2024 6:01 AM FISH STRINGER ASSEMBLER 2 mg $Given 06/15/2024 4:11 AM FISH STRINGER ASSEMBLER 2 mg hydroxyurea (HYDREA) capsule 1,000 mg 1,000 mg, Oral, 2 TIMES DAILY, First dose on Wed06/12/24 at 2330, Indications: sickle cell anemia, Do not crush May require hepatic and/or renal dose or frequency adjustments. See reference link for guidelines.Indications:sickle cell anemia $Given 06/15/2024 8:06 AM FISH STRINGER ASSEMBLER 1,000 mg $Given 06/14/2024 8:00 PM FISH STRINGER ASSEMBLER 1,000 mg $Given 06/14/2024 8:30 AM FISH STRINGER ASSEMBLER 1,000 mg lactated ringers infusion at 75 mL/hr, Intravenous, CONTINUOUS, Starting on Wed06/12/24 at 2240, Until Wed06/13/24 at 0839 Rate/Dose Verify 06/13/2024 7:02 AM FISH STRINGER ASSEMBLER 75 mL/hr Rate/Dose Verify 06/13/2024 4:52 AM FISH STRINGER ASSEMBLER 75 mL/h r Rate/Dose Verify 06/13/2024 1:35 AM FISH STRINGER ASSEMBLER 75 mL/h r Lidocaine (LIDOCARE) 4 % [...] Wed06/12/24 at 2138 $Given 06/13/2024 1:28 AM FISH STRINGER ASSEMBLER 5 mg menthol (ICY HOT) 5 % [...] Liquid not required. $Given 06/14/2024 9:20 AM FISH STRINGER ASSEMBLER 4 mg ondansetron (ZOFRAN) injection 4 mg 4 mg, Intravenous, ONCE, Administer over 2-5 Minutes, On Wed06/12/24 at 1850, For 1 dose $Given 06/12/2024 7:24 PM FISH STRINGER ASSEMBLER 4 mg ondansetron (ZOFRAN) injection 4 mg 4 mg, Intravenous, EVERY 6 HOURS PRN, nausea/vomiting - 1st line, Administer over 2-5 Minutes, Starting on Wed06/12/24 at 2237, Give IF patient unable to tolerate oral medication. This is Step 1 of nausea and vomiting management. If nausea not resolved in 15 minutes, go to Step 2 prochlorperazine (COMPAZINE). $Given 06/15/2024 4:19 AM FISH STRINGER ASSEMBLER 4 mg senna-docusate (SENOKOT-S/PERICOLACE) 8.6-50 MG per [...] the CVC Implanted port, Starting on Citlali 06/15/24 at 0906, 10 mL per port lumen [...] IV dormant line $Given 06/15/2024 6:32 AM FISH STRINGER ASSEMBLER 3 mLs $Given 06/13/2024 8:37 PM FISH STRINGER ASSEMBLER 3 mLs $Given 06/13/2024 2:12 PM FISH STRINGER ASSEMBLER 3 mLs sodium chloride (PF) 0.9% PF flush 3 mL 3 mL, Intracatheter, EVERY 1 MIN PRN, line flush, other, to ensure patency or to lock dormant line, Starting on Wed06/12/24 at 2237 $Given 06/14/2024 2:4 2 PM FISH STRINGER ASSEMBLER 3 mLs $Given 06/14/2024 8:30 AM FISH STRINGER ASSEMBLER 3 mLs $Given 06/14/2024 1:32 AM FISH STRINGER ASSEMBLER 3 mLs sodium chloride 0.9% BOLUS 1,000 mL Intravenous, 1,000 mL, ONCE, at 1,000 mL/hr, Administer over 1 Hours, On Wed06/12/24 at 1850, For 1 dose $New Bag 06/12/2024 7:22 PM FISH STRINGER ASSEMBLER 1,000 mLs 1000 mL/hr documented in this encounter Active and Recently Administered Medications Times are shown in FISH STRINGER ASSEMBLER. Scheduled Medication Order 06/13/2024 06/14/2024 06/15/2024 albuterol [...] Charles RN)1639 ($Given - Provider: Clay Avina, RN)1959 ($Given - Provider: Kathy Levy, SOFIA) 0805 ($Given - Provider: Clay Avina RN)1200 (Canceled Entry - Provider: Orders Generic Provider - Comment: Automatically canceled at discontinue of medication order) azithromycin (ZITHROMAX) 500 mg in sodium chloride 0.9 % 250 mL intermittent infusion (CANCELED) Routine, 500 mg, Intravenous, EVERY 24 HOURS, First dose on Wed06/13/24 at 2100, Indications: Acute chest syndrome 2203 ($New Bag - Provider: Geovanna Dean RN) 0118 (Stopped - Provider: Geovanna Daen RN) azithromycin (ZITHROMAX) tablet 500 mg Routine, [...] RN) 1999 ($New Bag - Provider: Kathy Levy RN) [...] Clay Avina RN)1629 ($Given - Provider: Kiki Caal, SOFIA)1825 ($Given - Provider: Clay Avina RN)1959 ($Given [...] Provider: Xu Ravi RN)2204 ($Given - Provider: Gevoanna Dean RN) 0830 ($Given - Provider: Clay Avina, SOFIA)2000 ($Given - Provider: Kathy Levy RN) 0806 [...] Reason: IV Infusing)1412 ($Given - Provider: Kiki Caal RN)2037 ($Given - Provider: Geovanna Dean RN) 0640 [...] Ang Charles RN) 0810 ($Given - Provider: Caly Avina RN) diphenhydrAMINE (BENADRYL) capsule 25 mg(Linked [...] Kiki Caal, SOFIA)1833 ($Given - Provider: Kiki Caal, SOFIA)2033 ($Given - Provider: Geovanna Dean RN)2254 ($Given - Provider: Geovanna Dean RN) 0132 ($Given - Provider: Geovanna Dean RN)0404 ($Given - Provider: Geovanna Dean RN)0625 ($Given - Provider: Geovanna Dean RN)0829 ($Given - Provider: Clay Avina, SOFIA)1031 ($Given - Provider: Clay Avina, RN)1238 ($Given [...] 0920 ($Given - Provider: Clay Avina RN) 6931 (See Alternative - Provider: Kathy Levy RN) [...] the CVC Implanted port, Starting on Citlali 06/15/24 at 0906, 10 mL per port lumen [...] stools. documented in this encounter Care Teams Camera Repairer Relationship Specialty Start Date End Date No Ref-Primary, Physician PCP - General 03/15/24 06/17/24 Elvira Ramseyc Medical Student 04/03/24 Case Samuel MD [address] [place] [address], [address] [place], [place] [address] Assigned Pediatric Specialist Provider 05/18/24 Juhi Benson, RN Specialty Radiology Receptionist Hematology & Oncology 05/29/24 documented as of this encounter
--- OUTSIDE RECORDS SUMMARY | 2024-07-28 20:46 | XMS_ITS | Encounter Summary ---
Author Organization [facility] Address [address] [place] [address]. [place] [address] Care Team Providers Care Miner Helper Name Role Phone RoxyElvirac Unavailable Unavailable Case Samuel MD Unavailable [phone] Juhi Benson RN Unavailable Unavailable Veronica Joseph MD Primary Care Provider [phone] Reason for Visit * Reason Onset Date Comments Refill Request 07/04/2024 Encounter Details Date Type Department Care Team (Late st Contact Info) Description 07/04/[address] [place] [address] Case Samuel MD [address] [place] [address], [address] [place], [place] [id number] Refill Request Social History Tobacco Use Types [...] on file 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 Yes Is pain being adequately controlled on the current regimen?: Yes Experiencing any side effects from medication?: No Date of most recent appointment: 05/29/[address] Samuel Any No Show Visits:No Next appointment: 07/10/[address] Samuel TRUCK TERMINAL MANAGER Reviewed: No Access Routed/Paged provider: Dr. Case Samuel. documented in this encounter Plan of Treatment Upcoming Encounters Date Type Department Care Team (Late st Contact Info) Description 08/07/2024 7:15 AM CDT Lab [facility] Cancer [address] [phone] Case Samuel MD [address] [place] [address], [address] [address] 08/08/2024 8:00 AM CDT Appointment [facility] [address] [phone] Case Samuel MD [address] [place], [place] [address], [address] [address] 10/30/2024 11:30 AM CDT Lab [facility] Cancer [address] [phone] Case Samuel MD [address] [place] [address], [address] [address] 10/30/2024 12:00 PM CDT Oncology Visit [facility] Cancer [address] [phone] Case Samuel MD [address] [place], [place] [address], [address] [address] documented as of this encounter Goals Goal Patient Goal Type Associated Problems Recent Progress Patient-Stated? Author Pain Management General On track( 025 2:58 PM CDT) Yes Juhi eBnson, SOFIA Note: Goal Statement: I will establish [...] crisis documented in this encounter Care Teams Miner Helper Relationship Specialty Start Date End Date Veronica Joseph MD [address] [place] [address] PCP - General Family Medicine 06/18/24 Mor Ramsey Medical Student 04/03/24 Case Samuel MD [address] [place] [address], [address] [place], [place] [address] Assigned Pediatric Specialist Provider 05/18/24 Juhi Benson, RN Specialty Registered Dental Assistant Hematology & Oncology 05/29/24 documented as of this encounter
--- OUTSIDE RECORDS SUMMARY | 2024-07-28 20:46 | XMS_ITS | Encounter Summary ---
Author Organization [facility] Address [address] [place] [address]. 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 [address] [phone] Case Samuel MD [address] [place] [address], [address] [address] 10/30/2024 11:30 AM CDT Lab [facility] [address] [phone] Case Samuel MD [address] [place] [address], [address] [address] 10/30/2024 12:00 PM CDT Oncology Visit [facility] [address] [phone] Case Samuel MD [address] [facility] 484, [address] [place] [address] documented as of this encounter Goals Goal [...] on filedocumented in this encounter Care Teams Nursing Tech Relationship Specialty Start Date End Date Veronica Joseph MD [address] [place] [address] PCP - General Family Medicine 06/18/24 Mor Ramsey Medical Student 04/03/24 Case Samuel MD [address] [facility] 484, [address] [place] [address] Assigned Pediatric Specialist Provider 05/18/24 Juhi Benson, RN Specialty Integrated Circuit Layout Designer Hematology & Oncology 05/29/24 documented as of this encounter
--- OUTSIDE RECORDS SUMMARY | 2024-07-28 20:46 | XMS_ITS | Encounter Summary ---
Author Organization [facility] Address [address] [place] [address]. [place] [address] Care Team Providers Care Mastercam Programmer Name Role Phone RoxyElvirac Unavailable Unavailable Case Samuel MD Unavailable [phone] Juhi Benson RN Unavailable Unavailable Veronica Joseph MD Primary Care Provider [phone] Reason for Visit * Reason Comments Sickle Cell Pain Crisis * Auth/Cert Specialty Diagnoses / Procedures Referred By Shahid pendleton Referred To Contact EMERGENCY MEDICINE Diagnoses Acute pulmonary embolism without acute cor pulmonale, unspecified pulmonary embolism type (H) Sickle cell pain crisis (H) [facility] [address] [place] [address] Phone: tel: Referral ID Status Reason Start Date Expiration Date Visits Re quested Visits Authorized [id number] 1 1 Encounter Details Date Type Department Care Team (Latest Contact Info) Description 06/26/2024 1:51 PM MACHINE OPERATOR CANE CUTTER - 06/29/2024 11:11 AM [facility] Hospital Encounter [facility] [address] [place] [phone] Jayden Adhikari MD [address] [place] [address] Esdras Markham MD [address] [place] [address] Alex Gillespie MD [address] [place] [id number] Acute pulmonary embolism without acute cor [...] file Legal Sex Female 8:25 AM MACHINE OPERATOR CANE CUTTER Gender Identity Not on file Sexual Orientation Not on file documented as of this encounter Last Filed Vital Signs Vital Sign Reading Time Taken Comments Blood Pressure 97/51 06/29/2024 9:46 AM MACHINE OPERATOR CANE CUTTER Pulse 62 06/29/2024 9:46 AM MACHINE OPERATOR CANE CUTTER Temperature 36.8 C (98.2 F) 06/29/2024 9:46 AM MACHINE OPERATOR CANE CUTTER Respiratory Rate 18 06/29/2024 9:46 AM MACHINE OPERATOR CANE CUTTER Oxygen Saturation 95% 06/29/2024 9:46 AM MACHINE OPERATOR CANE CUTTER Inhaled Oxygen Concentration - - Weight - - Height - - Body Mass Index - - documented in this encounter Discharge Summaries * Rl Elias MD - 06/29/2024 10:11 AM CST [facility] Discharge Summary - Medicine & Pediatrics Date [...] negative. Hemoglobin stable through admission. - Continue PHYSICAL THERAPY AID hydroxyurea 1000mg BID - Continue PHYSICAL THERAPY AID folic acid 1mg daily - Continue topical [...] Hematology (whichever comes first) #Anxiety - Continue PHYSICAL THERAPY AID fluoxetine 10 mg daily Consultations This Hospital Stay PHARMACY IP CONSULT HEMATOLOGY ADULT IP CONSULT CARE MANAGEMENT / SOCIAL WORK IP CONSULT PHARMACY LIAISON FOR MEDICATION COVERAGE CONSULT PHARMACY LIAISON FOR MEDICATION COVERAGE CONSULT SOCIAL WORK IP CONSULT PHARMACY LIAISON FOR MEDICATION COVERAGE CONSULT Code Status Full Code The patient was discussed with Dr. Gillespie. MD Ricardo LANGLEY [address] [place] [address] EMERGENCY DEPARTMENT [address] [facility] [phone] Physical Exam Vital Signs: Temp: 98.2 ??F [...] MD Echocardiogram Complete Value LVEF 55-60% Narrative [id number]^BRITTANEY^JERMAINE [facility] [address] [place] [id number] Name: LEW HERNÁNDEZ : 1995 Study Date: 06/27/2024 01:58 PM Age: 29 yrs Gender: Female Patient Location: [facility] Reason For Study: Pulmonary Emboli [...] (H) naloxone (NARCAN) 4 MG/0.1ML nasal spray Pullman 1 spray (4 mg) into one nostril [...] Alex Gillespie MD at 06/29/2024 12:30 PM MACHINE OPERATOR CANE CUTTER INE OPERATOR CANE CUTTER INE OPERATOR CANE CUTTER Associated attestation - Alex Gillespie MD - 06/29/2024 12:30 PM MACHINE OPERATOR CANE CUTTER Physician Attestation I saw and evaluated this [...] 05/01/2024 naloxone (NARCAN) 4 MG/0.1ML nasal spray Pullman 1 spray (4 mg) into one nostril [...] with POC. Notify primary team with changes. INE OPERATOR CANE CUTTER * Rl Elias MD - 06/28/2024 10:47 AM CST [facility] Progress Note - Medicine Service, [facility] TEAM 1 Date of Admission: 06/26/2024 Assessment [...] coverage, has 30 day free trial through [facility] #Sickle cell acute pain crisis #Sickle [...] senna PRN for supportive measures - Continue PHYSICAL THERAPY AID hydroxyurea 1000mg BID - Continue PHYSICAL THERAPY AID folic acid 1mg daily - Monitoring CBC [...] melatonin 3 mg PRN #Anxiety - Continue PHYSICAL THERAPY AID fluoxetine 10 mg daily - Benadryl PRN [...] Gillespie . RL ELIAS MD Medicine Service, [facility] TEAM 1 [facility] Securely message with [employer] (more info) Text page via [facility] [...] Echocardiogram Complete Result Value LVEF 55-60% Narrative [id number]^BRITTANEY^JERMAINE [facility] Echocardiography Laboratory [address] [place] [id number] Name: LEW HERNÁNDEZ : 1995 Study Date: 06/27/2024 01:58 PM Age: 29 yrs Gender: Female Patient Location: [facility] Reason For Study: Pulmonary Emboli [...] Alex Gillespie MD at 06/28/2024 12:23 PM MACHINE OPERATOR CANE CUTTER INE OPERATOR CANE CUTTER INE OPERATOR CANE CUTTER Associated attestation - Alex Gillespie MD - 06/28/2024 12:23 PM MACHINE OPERATOR CANE CUTTER Physician Attestation I saw this patient with [...] status and report changes to treatment team. INE OPERATOR CANE CUTTER * Rl Elias MD - 06/27/2024 11:41 AM CST [facility] Progress Note - Medicine Service, [facility] TEAM 1 Date of Admission: 06/26/2024 Assessment [...] senna PRN for supportive measures - Continue PHYSICAL THERAPY AID hydroxyurea 1000mg BID - Continue PHYSICAL THERAPY AID folic acid 1mg daily - Monitoring CBC w/diff, LDH, reticulocyte count, and LDH daily - Type & screened - Continue topical diclofenac, lidocaine, icy hot PRN #Leukocytosis #Insomnia - continue melatonin 3 mg PRN #Anxiety - Continue PHYSICAL THERAPY AID fluoxetine 10 mg daily - Benadryl PRN [...] Gillespie . RL ELIAS MD Medicine Service, [facility] TEAM [address] [place] [address] Securely message with [employer] (more info) Text page via [facility] [...] Alex Gillespie MD at 06/27/2024 2:25 PM MACHINE OPERATOR CANE CUTTER INE OPERATOR CANE CUTTER INE OPERATOR CANE CUTTER Associated attestation - Alex Gillespie MD - 06/27/2024 2:25 PM MACHINE OPERATOR CANE CUTTER Physician Attestation I saw this patient with [...] Quispe MD - 06/26/2024 5:21 PM CST [facility] History and Physical - Medicine Service, [facility] TEAM Date of Admission: 06/26/2024 Assessment & [...] 10 mg qdaily at home. - Continue PHYSICAL THERAPY AID fluoxetine - Ordered hydroxyzine 25-50 mg q6h PRN - Advised patient that there are resources available if she would like to talk more about her anxiety (Behavioral Health, Nutrition Partner, etc). #Insomnia - Ordered melatonin 3 mg [...] Markham . 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 [...] Esdras Markham MD at 06/26/2024 11:25 PM MACHINE OPERATOR CANE CUTTER INE OPERATOR CANE CUTTER INE OPERATOR CANE CUTTER Associated attestation - Esdras Markham MD - 06/26/2024 11:25 PM MACHINE OPERATOR CANE CUTTER Physician Attestation I saw this patient with [...] Dependency Status:not discussed Values/Beliefs: Spiritual, Cultural Beliefs, Scientologist Practices, Values that affect care: no Discussed [...] Care management signing off. Sandy Bertrand RN, [facility] Inpatient Care Management - FLOAT INE OPERATOR CANE CUTTER * Bernadette Boggs - 06/29/2024 8:55 AM CSTAssociated Order(s): PHARMACY LIAISON FOR MEDICATION COVERAGE CONSULT; PHARMACY LIAISON FOR MEDICATION COVERAGE CONSULT Summary: Rx coverage for Eliquis Discharge Pharmacy Test Claim Patient's commercial BCBS [place] plan covers Eliquis with an expected monthly copay of $0. Test Claim Copay Eliquis 0.00 Bernadette Boggs [facility] Pharmacy Liaison (A - L) Available on [email or web address] & [employer] Disclaimer: Pharmacy test claims are extimates and may not reflect final costs. Suggested alternatives aim to be cost-effective but may not be therapeutically equivalent as this consult is informational and does not constitute medical advice. Clinical decisions should be made by qualified healthcare providers. INE OPERATOR CANE CUTTER INE OPERATOR CANE CUTTER INE OPERATOR CANE CUTTER INE OPERATOR CANE CUTTER * Bernadette Boggs - 06/27/2024 3:13 PM CSTAssociated Order(s): PHARMACY LIAISON FOR MEDICATION COVERAGE CONSULT Summary: Rx Coverage for Xarelto Discharge Pharmacy Test Claim Patient's commercial [place]BS [place] plan covers xarelto with an expected monthly copay of $0. Test Claim Copay Xarelto 0.00 Bernadette Boggs [facility] Pharmacy Liaison (A - L) Available on [employer] Disclaimer: Pharmacy test claims are extimates and may not reflect final costs. Suggested alternatives aim to be cost-effective but may not be therapeutically equivalent as this consult is informational and does not constitute medical advice. Clinical decisions should be made by qualified healthcare providers. INE OPERATOR CANE CUTTER INE OPERATOR CANE CUTTER * Carmen Aviles PA-C - 06/27/2024 9:03 AM CSTAssociated Order(s): HEMATOLOGY ADULT IP CONSULT Images from the original note were not included. Hematology Consult Note Date of Service: 06/27/2024 Patient: Lew Hernández Admission Date: 06/26/2024 Hospital Day # Hospital Day: 2 Primary Outpatient Pipe Cleaning Machine Operator: Dr. Evy Samuel Reason for Consult: pt [...] documentation time. Jenise Aviles PA-C Benign Hematology [phone] History of Present Illness: Lew Hernández is [...] Endocarditis 11/2022 culture-negative[facility] Functional asplenia Gallstones Hb-SS disease without [...] Currently Drug use: Never Social History Narrative Vttl-ky-iqan mom. Recently moved to [place] from [place], [place]. She is 1 of [...] [facility] Social Connections Do you [...] 11 naloxone (NARCAN) 4 MG/0.1ML nasal spray Pullman 1 spray (4 mg) into one nostril [...] Octavio Rivera MD at 06/27/2024 4:18 PM MACHINE OPERATOR CANE CUTTER INE OPERATOR CANE CUTTER INE OPERATOR CANE CUTTER Associated attestation - Octavio Rivera MD - 06/27/2024 4:18 PM MACHINE OPERATOR CANE CUTTER Physician Attestation I saw and evaluated Lew Hernández as part of a shared IVF EMBRYOLOGIST/PA visit. I personally reviewed the vital signs, [...] indwelling. We will coordinate follow-up with outpatient excavating supervisor. Counseling and/or coordination of care performed by me: Rounds 45 MINUTES SPENT BY ME on the date of service doing chart review, history, exam, documentation & further activities per the note. Octavio Rivera MD Date of Service (when I saw the patient): 06/27/24 This note was completed in part using dictation via the [employer] voice recognition software. Some word and grammatical [...] WDL WDL Cognitive/Neuro/Behavioral WDL Cognitive/Neuro/Behavioral WDL WDL INE OPERATOR CANE CUTTER * Tammi Dave RN - 06/26/2024 1:51 PM CST Bed: [facility]- Expected date: Expected time: Means of arrival: Comments: HWY appropriate INE OPERATOR CANE CUTTER * Jayden Adhikari MD - 06/26/2024 1:45 PM CST Images from the original note were not included. 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 Procedure Abnormality Status --------- ------ CBC with platelets and d...[[id number]] Abnormal Final result Please view results for these tests on the individual orders. ABO/Rh type and screen Status: None Narrative The following orders were created for panel order ABO/Rh type and screen. Procedure Abnormality Status --------- ------ Adult Type and Screen[[id number]] Final result Please view results for these tests on the individual orders. Results for orders placed or performed during the hospital encounter of 06/25/24 XR Chest 2 Views Status: None Narrative EXAM: XR CHEST 2 VIEWS LOCATION: [facility] DATE: 06/25/2024 INDICATION: Chest pain, SSC. [...] Negative Ketones Urine Negative Negative mg/dL Specific [place] Urine 1.009 1.003 - 1.035 Blood Urine [...] Rate 87 BPM Atrial Rate [address] Interval 162 ms QRS Duration 86 ms QT 362 ms QTc 435 ms P [place] 54 degrees R AXIS 84 degrees T [place] 70 degrees Interpretation ECG Sinus rhythm Normal ECG Unconfirmed report - interpretation of this ECG is computer generated - see medical record for final interpretation Confirmed by - EMERGENCY ROOM, PHYSICIAN ([id number]), news videotape editor Nivia Willson ([id number]) on 06/25/2024 10:56:42 PM CBC with platelets differential Status: Abnormal Narrative The following orders were created for panel order CBC with platelets differential. Procedure Abnormality Status --------- ------ CBC with platelets and d...[[id number]] Abnormal Final result Please view results for [...] 55 mL (55 mLs Intravenous $Given 06/26/24 1763) sodium chloride (PF) 0.9% PF flush 82 mL (82 mLs Intravenous $Given 06/26/24 9213) heparin ANTICOAGULANT Loading dose for HIGH INTENSITY [...] POS Antibody Screen Negative SPECIMEN EXPIRATION DATE [id number] BLOOD CULTURE BLOOD CULTURE ABO/RH TYPE AND [...] type (H) Sickle cell pain crisis (H) [facility] EMERGENCY DEPARTMENT 06/26/2024 Jayden Adhikari MD 06/26/24 1704 INE OPERATOR CANE CUTTER documented in this encounter Miscellaneous Notes * Plan of Care - Sandy Bertrand RN - 06/29/2024 10:54 AM CST Goal Outcome Evaluation: Plan of Care Reviewed With: patient Overall Patient Progress: improvingOverall Patient Progress: improving Outcome Evaluation: Discharge home today Sandy Bertrand RN, [facility] Inpatient Care Management - FLOAT INE OPERATOR CANE CUTTER * Plan of Care - Maki Schultz [...] Pt adequate for discharge. Verbalized all instructions. INE OPERATOR CANE CUTTER * Plan of Care - Lavinia Cruz RN - 06/29/2024 7:05 AM CST RN [phone] Vitals: Afebrile. VSS on RA Neuro: A&Ox4 [...] changes in patient status. Lavinia Cruz RN INE OPERATOR CANE CUTTER * Plan of Care - Sathish Goetz [...] (36.8 ??C) (Oral) Resp 20 SpO2 98% INE OPERATOR CANE CUTTER * Plan of Care - Sathish Goetz [...] (36.8 ??C) (Oral) Resp 20 SpO2 98% INE OPERATOR CANE CUTTER * Medication Scribe - Admission Medication History - Yennifer Edwards - 06/27/2024 4:32 AM CST Medication Scribe Admission Medication History Admission medication history is complete. The information provided in this note is only as accurateas the sources available at the time of the update. Information Source(s): Patient and CareEverywhere/SureScripts via in-person Pertinent Information: per pt+CE, pt reported taking medications on PHYSICAL THERAPY AID medication list as directed Changes made to PHYSICAL THERAPY AID medication list: Added: None Deleted: None Changed: None Allergies reviewed with patient and updates made in EHR: yes Medication History Completed By: Yennifer Edwards 06/27/2024 4:32 AM PHYSICAL THERAPY AID Med List Medication Sig Last Dose/Taking diphenhydrAMINE [...] 06/26/2024 naloxone (NARCAN) 4 MG/0.1ML nasal spray Pullman 1 spray (4 mg) into one nostril alternating nostrilsas needed for opioid reversal (for opiate overdose if not breathing and unconscious. have your family member watch video on how to use/read information sheet). 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 Thanks. INE OPERATOR CANE CUTTER * Provider Notification - Gordo Sykes RN - 06/27/2024 1:27 AM MACHINE OPERATOR CANE CUTTER Also, pt has orders for NPO. Pt stated that she thinks that this has passed and the order hasn't been updated. Previous nurse told me that pt ordered and ate dinner (before my shift). Is pt NPO? Or what are her diet orders? Thanks. INE OPERATOR CANE CUTTER * Provider Notification - Gordo Sykes RN - 06/27/2024 1:13 AM MACHINE OPERATOR CANE CUTTER Hello, pt refusing a PIV. Pt only has L port that is currently running a heparin drip. Pt has orders for continuous LR at 100mL/hour, I am unable to run this at this time due to limited access. Is fedey to hold off on this? Or what would you advise? Thanks. INE OPERATOR CANE CUTTER INE OPERATOR CANE CUTTER * Plan of Care - Phuong Ng RN - 06/26/2024 11:46 PM CST Shift: [id number] VS: Blood pressure 103/68, pulse 79, temperature [...] No significant changes this shift, continue POC. INE OPERATOR CANE CUTTER documented in this encounter Plan of Treatment Upcoming Encounters Date Type Department Care Team (Late st Contact Info) Description 08/07/2024 7:15 AM CDT Lab [facility] [address] [phone] Case Samuel MD [address] [place] [address], [address]OM [address] [id number] 08/08/2024 8:00 AM CDT Appointment [facility] Advanced Treatment [address] [address] Case Samuel MD [address] [place] [address], [address] [place], [place] [address] 10/30/2024 11:30 AM CDT Lab [facility] [address] [phone] Case Samuel MD [address] [place] [address], [address] [place], [place] [address] 10/30/2024 12:00 PM CDT Oncology Visit [facility] [address] [address] Case Samuel MD [address] [place] [address], [address] [place] [phone] documented as of this encounter Goals Goal [...] Comments EXTRA TUBE STAT 06/29/2024 6:05 AM MACHINE OPERATOR CANE CUTTER EXTRA PURPLE TOP TUBE STAT 06/29/2024 6:05 AM MACHINE OPERATOR CANE CUTTER CBC WITH PLATELETS AND DIFFERENTIAL STAT 06/29/2024 6:05 AM MACHINE OPERATOR CANE CUTTER CBC WITH PLATELETS & DIFFERENTIAL STAT 06/29/2024 6:05 AM MACHINE OPERATOR CANE CUTTER COMPREHENSIVE METABOLIC PANEL STAT 06/29/2024 6:04 AM MACHINE OPERATOR CANE CUTTER RBC AND PLATELET MORPHOLOGY STAT 06/28/2024 6:06 AM MACHINE OPERATOR CANE CUTTER CBC WITH PLATELETS AND DIFFERENTIAL STAT 06/28/2024 6:06 AM MACHINE OPERATOR CANE CUTTER LACTATE DEHYDROGENASE STAT 06/28/2024 6:06 AM MACHINE OPERATOR CANE CUTTER CBC WITH PLATELETS & DIFFERENTIAL STAT 06/28/2024 6:06 AM MACHINE OPERATOR CANE CUTTER RETICULOCYTE COUNT STAT 06/28/2024 6: 06 AM MACHINE OPERATOR CANE CUTTER COMPREHENSIVE METABOLIC PANEL STAT 06/28/2024 6:06 AM MACHINE OPERATOR CANE CUTTER BILIRUBIN DIRECT Add-On 06/28/2024 6:06 AM MACHINE OPERATOR CANE CUTTER HEPARIN UNFRACTIONATED ANTI XA LEVEL STAT 06/28/2024 1:57 AM MACHINE OPERATOR CANE CUTTER HEPARIN UNFRACTIONATED ANTI XA LEVEL STAT 06/27/2024 7:14 PM MACHINE OPERATOR CANE CUTTER EXTRA TUBE STAT 06/27/2024 5:55 PM MACHINE OPERATOR CANE CUTTER EXTRA GREEN TOP (LITHIUM HEPARIN) TUBE STAT 06/27/2024 5:55 PM MACHINE OPERATOR CANE CUTTER ECHO COMPLETE Routine 06/27/2024 2:33 PM MACHINE OPERATOR CANE CUTTER HEPARIN UNFRACTIONATED ANTI XA LEVEL STAT 06/27/2024 12:39 PM MACHINE OPERATOR CANE CUTTER US LOWER EXTREMITY VENOUS DUPLEX BILATERAL STAT 06/27/2024 11:21 AM MACHINE OPERATOR CANE CUTTER INFLUENZA A/B, RSV AND SARS-COV2 PCR STAT 06/27/2024 8:43 AM MACHINE OPERATOR CANE CUTTER ROUTINE UA WITH MICROSCOPIC REFLEX TO CULTURE STAT 06/27/2024 8:12 AM MACHINE OPERATOR CANE CUTTER RBC AND PLATELET MORPHOLOGY STAT 06/27/2024 5:57 AM MACHINE OPERATOR CANE CUTTER CBC WITH PLATELETS AND DIFFERENTIAL Add-On 06/27/2024 5:57 AM MACHINE OPERATOR CANE CUTTER TYPE AND SCREEN, ADULT Routine 5:57 AM MACHINE OPERATOR CANE CUTTER CBC WITH PLATELETS & DIFFERENTIAL Add-On 06/27/2024 5:57 AM MACHINE OPERATOR CANE CUTTER RETICULOCYTE COUNT Add-On 06/27/2024 5: 57 AM MACHINE OPERATOR CANE CUTTER HEPATIC FUNCTION PANEL Add-On 5:57 AM MACHINE OPERATOR CANE CUTTER ABO/RH TYPE AND SCREEN Add-On 5:57 AM MACHINE OPERATOR CANE CUTTER BASIC METABOLIC PANEL STAT 06/27/2024 5:57 AM MACHINE OPERATOR CANE CUTTER CBC WITH PLATELETS STAT 06/27/2024 5: 57 AM MACHINE OPERATOR CANE CUTTER HEPARIN UNFRACTIONATED ANTI XA LEVEL STAT 06/27/2024 5:56 AM MACHINE OPERATOR CANE CUTTER HEPARIN UNFRACTIONATED ANTI XA LEVEL STAT 06/26/2024 10:46 PM MACHINE OPERATOR CANE CUTTER ERYTHROCYTE SEDIMENTATION RATE AUTO STAT 06/26/2024 6:46 PM MACHINE OPERATOR CANE CUTTER BLOOD CULTURE STAT 06/26/2024 6:46 PM MACHINE OPERATOR CANE CUTTER BLOOD CULTURE STAT 06/26/2024 6:46 PM MACHINE OPERATOR CANE CUTTER EKG 12-LEAD, TRACING ONLY STAT 06/26/2024 5:19 PM MACHINE OPERATOR CANE CUTTER CT CHEST PULMONARY EMBOLISM W CONTRAST STAT 06/26/2024 4:15 PM MACHINE OPERATOR CANE CUTTER XR CHEST 2 VIEWS STAT 06/26/2024 3:13 PM MACHINE OPERATOR CANE CUTTER CBC WITH PLATELETS AND DIFFERENTIAL STAT 06/26/2024 2:42 PM MACHINE OPERATOR CANE CUTTER TYPE AND SCREEN, ADULT STAT 2:42 PM MACHINE OPERATOR CANE CUTTER TROPONIN T, HIGH SENSITIVITY STAT 06/26/2024 2:42 PM MACHINE OPERATOR CANE CUTTER PROCALCITONIN STAT 06/26/2024 2:42 PM MACHINE OPERATOR CANE CUTTER CBC WITH PLATELETS & DIFFERENTIAL STAT 06/26/2024 2:42 PM MACHINE OPERATOR CANE CUTTER HCG QUALITATIVE STAT 06/26/2024 2:42 PM MACHINE OPERATOR CANE CUTTER D DIMER QUANTITATIVE STAT 06/26/2024 2:42 PM MACHINE OPERATOR CANE CUTTER CRP INFLAMMATION Add-On 06/26/2024 2:42 PM MACHINE OPERATOR CANE CUTTER ABO/RH TYPE AND SCREEN STAT 2:42 PM MACHINE OPERATOR CANE CUTTER BASIC METABOLIC PANEL STAT 06/26/2024 2:42 PM MACHINE OPERATOR CANE CUTTER documented in this encounter Results * Extra Purple Top Tube (06/29/2024 6:05 AM MACHINE OPERATOR CANE CUTTER) Hold Specimen JIC 06/29/2024 7:31 AM MACHINE OPERATOR CANE CUTTER [facility] Blood ARTERIAL LINE / Unknown IVAD (Port) / Unknown 06/29/2024 6:05 AM MACHINE OPERATOR CANE CUTTER 06/29/2024 6:19 AM MACHINE OPERATOR CANE CUTTER us Alex Gillespie MD LAB - BLOOD ORDERABLES Final Re sult [facility] [address] [facility], Room [address] [phone] * (ABNORMAL) CBC with platelets and differential (06/29/2024 6:05 AM MACHINE OPERATOR CANE CUTTER) WBC Count 12.3(H) 4.0 - 11.0 10e3/uL 06/29/2024 6:30 AM MACHINE OPERATOR CANE CUTTER [facility] RBC Count 2.60(L) 3.80 - 5.20 10e6/uL 06/29/2024 6:30 AM MACHINE OPERATOR CANE CUTTER [facility] Hemoglobin 8.5(L) 11.7 - 15.7 g/dL 06/29/2024 6:30 AM MACHINE OPERATOR CANE CUTTER [facility] Hematocrit 25.5(L) 35.0 - 47.0 % 06/29/2024 6:30 AM MACHINE OPERATOR CANE CUTTER [facility] MCV 98 78 - 100 fL 06/29/2024 6:30 AM MACHINE OPERATOR CANE CUTTER [facility] MCH 32.7 26.5 - 33.0 pg 06/29/2024 6:30 AM MACHINE OPERATOR CANE CUTTER [facility] MCHC 33.3 31.5 - 36.5 g/dL 06/29/2024 6:30 AM MACHINE OPERATOR CANE CUTTER [facility] RDW 17.9(H) 10.0 - 15.0 % 06/29/2024 6:30 AM MACHINE OPERATOR CANE CUTTER [facility] Platelet Count 438 150 - 450 10e3/uL 06/29/2024 6:30 AM MACHINE OPERATOR CANE CUTTER [facility] % Neutrophils 62 % 06/29/2024 6:30 AM MACHINE OPERATOR CANE CUTTER [facility] % Lymphocytes 25 % 06/29/2024 6:30 AM MACHINE OPERATOR CANE CUTTER [facility] % Monocytes 9 % 06/29/2024 6:30 AM MACHINE OPERATOR CANE CUTTER [facility] % Eosinophils 3 % 06/29/2024 6:30 AM MACHINE OPERATOR CANE CUTTER [facility] % Basophils 1 % 06/29/2024 6:30 AM MACHINE OPERATOR CANE CUTTER [facility] % Immature Granulocytes 0 % 06/29/2024 6:30 AM MACHINE OPERATOR CANE CUTTER [facility] NRBCs per 100 WBC 1(H) <1 /100 025 6:30 AM MACHINE OPERATOR CANE CUTTER [facility] Absolute Neutrophils 7.6 1.6 - 8.3 10e3/uL 06/29/2024 6:30 AM MACHINE OPERATOR CANE CUTTER [facility] Absolute Lymphocytes 3.1 0.8 - 5.3 10e3/uL 06/29/2024 6:30 AM MACHINE OPERATOR CANE CUTTER [facility] Absolute Monocytes 1.1 0.0 - 1.3 10e3/uL 06/29/2024 6:30 AM MACHINE OPERATOR CANE CUTTER [facility] Absolute Eosinophils 0.4 0.0 - 0.7 10e3/uL 06/29/2024 6:30 AM MACHINE OPERATOR CANE CUTTER [facility] Absolute Basophils 0.1 0.0 - 0.2 10e3/uL 06/29/2024 6:30 AM MACHINE OPERATOR CANE CUTTER [facility] Absolute Immature Granulocytes 0.0 <=0.4 10e3/uL 06/29/2024 6:30 AM MACHINE OPERATOR CANE CUTTER [facility] Absolute NRBCs 0.1 10e3/uL 06/29/2024 6:30 AM MACHINE OPERATOR CANE CUTTER [facility] Blood ARTERIAL LINE / Unknown IVAD (Port) / Unknown 06/29/2024 6:05 AM MACHINE OPERATOR CANE CUTTER 06/29/2024 6:17 AM MACHINE OPERATOR CANE CUTTER us Rl Elias MD LAB - BLOOD ORDER SYD Final Result [facility] [address] [facility], [address] [place] [address], [facility] * (ABNORMAL) Comprehensive metabolic panel (06/29/2024 6:04 AM MACHINE OPERATOR CANE CUTTER) Sodium 132(L) 135 - 145 mmol/L 06/29/2024 6:51 AM MACHINE OPERATOR CANE CUTTER [facility] Potassium 4.6 3.4 - 5.3 mmol/L 06/29/2024 6:51 AM MACHINE OPERATOR CANE CUTTER [facility] Carbon Dioxide (CO2) 21(L) 22 - 29 mmol/L 06/29/2024 6:51 AM MACHINE OPERATOR CANE CUTTER [facility] Anion Gap 9 7 - 15 mmol/L 06/29/2024 6:51 AM MACHINE OPERATOR CANE CUTTER [facility] Urea Nitrogen 14.3 6.0 - 20.0 mg/dL 06/29/2024 6:51 AM MACHINE OPERATOR CANE CUTTER [facility] Creatinine 0.70 0.51 - 0.95 mg/dL 06/29/2024 6:51 AM MACHINE OPERATOR CANE CUTTER [facility] GFR Estimate >90 >60 mL/min/1.7 3m2 06/29/2024 6:51 AM MACHINE OPERATOR CANE CUTTER [facility] Comment:eGFR calculated usin g 2020 CKD-EPI equation. Calcium 8.9 8.8 - 10.4 mg/dL 06/29/2024 6:51 AM MACHINE OPERATOR CANE CUTTER [facility] Chloride 102 98 - 107 mmol/L 06/29/2024 6:51 AM MACHINE OPERATOR CANE CUTTER [facility] Glucose 98 70 - 99 mg/dL 06/29/2024 6:51 AM MACHINE OPERATOR CANE CUTTER [facility] Alkaline Phosphatase 106 40 - 150 U/L 06/29/2024 6:51 AM MACHINE OPERATOR CANE CUTTER [facility] AST 49(H) 0 - 45 U/L 06/29/2024 6:51 AM MACHINE OPERATOR CANE CUTTER [facility] ALT 44 0 - 50 U/L 06/29/2024 6:51 AM MACHINE OPERATOR CANE CUTTER [facility] Protein Total 7.5 6.4 - 8.3 g/dL 06/29/2024 6:51 AM MACHINE OPERATOR CANE CUTTER [facility] Albumin 4.1 3.5 - 5.2 g/dL 06/29/2024 6:51 AM MACHINE OPERATOR CANE CUTTER [facility] Bilirubin Total 1.6(H) <=1.2 mg/dL 06/29/2024 6:51 AM MACHINE OPERATOR CANE CUTTER [facility] Blood ARTERIAL LINE / Unknown IVAD (Port) / Unknown 06/29/2024 6:04 AM MACHINE OPERATOR CANE CUTTER 06/29/2024 6:19 AM MACHINE OPERATOR CANE CUTTER us Rl Elias MD LAB - BLOOD ORDER SYD Final Result [facility] [address] [facility], [address] [phone] [place] [address] * (ABNORMAL) Bilirubin direct (06/28/2024 6:06 AM MACHINE OPERATOR CANE CUTTER) Pathologist [facility] Bilirubin Direct 0.53(H) 0.00 - 0.30 mg/dL 06/28/2024 9:50 AM MACHINE OPERATOR CANE CUTTER [facility] Blood VENOUS LINE / Unknown Venipuncture / Unknown 06/28/2024 6:06 AM MACHINE OPERATOR CANE CUTTER 06/28/2024 6:22 AM MACHINE OPERATOR CANE CUTTER Rl Elias MD LAB - BLOOD ORDER SYD Final Result Performing Organization Address City/[facility]/ZIP Co de Phone Number LABORATORY [facility] Lab [address] [facility], [address] * (ABNORMAL) RBC and Platelet Morphology (06/28/2024 6:06 AM MACHINE OPERATOR CANE CUTTER) Pathologist [facility] RBC Morphology Confirmed RBC Indices 06/28/2024 7:15 AM MACHINE OPERATOR CANE CUTTER [facility] Platelet Assessment Automated Count Confirmed. Platelet morphology is normal. Automated Count Confirmed. Platelet morphology is normal. 06/28/2024 7:15 AM MACHINE OPERATOR CANE CUTTER [facility] Sickle Cells Slight(A) None Seen 06/28/2024 7:15 AM MACHINE OPERATOR CANE CUTTER [facility] Target Cells Moderate(A) None Seen 06/28/2024 7:15 AM MACHINE OPERATOR CANE CUTTER [facility] Blood VENOUS LINE / Unknown Venipuncture / Unknown 06/28/2024 6:06 AM MACHINE OPERATOR CANE CUTTER 06/28/2024 6:22 AM MACHINE OPERATOR CANE CUTTER Rl Elias MD LAB - BLOOD ORDER SYD Final Result [facility] [address] [facility], [address] [phone] * (ABNORMAL) CBC with platelets and differential (06/28/2024 6:06 AM MACHINE OPERATOR CANE CUTTER) WBC Count 15.3(H) 4.0 - 11.0 10e3/uL 06/28/2024 7:14 AM MACHINE OPERATOR CANE CUTTER [facility] RBC Count 2.49(L) 3.80 - 5.20 10e6/uL 06/28/2024 7:14 AM MACHINE OPERATOR CANE CUTTER [facility] Hemoglobin 8.2(L) 11.7 - 15.7 g/dL 06/28/2024 7:14 AM MACHINE OPERATOR CANE CUTTER [facility] Hematocrit 24.0(L) 35.0 - 47.0 % 06/28/2024 7:14 AM MACHINE OPERATOR CANE CUTTER [facility] MCV 96 78 - 100 fL 06/28/2024 7:14 AM MACHINE OPERATOR CANE CUTTER [facility] MCH 32.9 26.5 - 33.0 pg 06/28/2024 7:14 AM MACHINE OPERATOR CANE CUTTER [facility] MCHC 34.2 31.5 - 36.5 g/dL 06/28/2024 7:14 AM MACHINE OPERATOR CANE CUTTER [facility] RDW 18.3(H) 10.0 - 15.0 % 06/28/2024 7:14 AM MACHINE OPERATOR CANE CUTTER [facility] Platelet Count 401 150 - 450 10e3/uL 06/28/2024 7:14 AM MACHINE OPERATOR CANE CUTTER [facility] % Neutrophils 46 % 06/28/2024 7:14 AM MACHINE OPERATOR CANE CUTTER [facility] % Lymphocytes 40 % 06/28/2024 7:14 AM MACHINE OPERATOR CANE CUTTER [facility] % Monocytes 10 % 06/28/2024 7:14 AM MACHINE OPERATOR CANE CUTTER [facility] % Eosinophils 4 % 06/28/2024 7:14 AM MACHINE OPERATOR CANE CUTTER [facility] % Basophils 1 % 06/28/2024 7:14 AM MACHINE OPERATOR CANE CUTTER [facility] % Immature Granulocytes 0 % 06/28/2024 7:14 AM MACHINE OPERATOR CANE CUTTER [facility] NRBCs per 100 WBC 1(H) <1 /100 025 7:14 AM MACHINE OPERATOR CANE CUTTER [facility] Absolute Neutrophils 7.0 1.6 - 8.3 10e3/uL 06/28/2024 7:14 AM MACHINE OPERATOR CANE CUTTER [facility] Absolute Lymphocytes 6.0(H) 0.8 - 5.3 10e3/uL 06/28/2024 7:14 AM MACHINE OPERATOR CANE CUTTER [facility] Absolute Monocytes 1.5(H) 0.0 - 1.3 10e3/uL 06/28/2024 7:14 AM MACHINE OPERATOR CANE CUTTER [facility] Absolute Eosinophils 0.5 0.0 - 0.7 10e3/uL 06/28/2024 7:14 AM MACHINE OPERATOR CANE CUTTER [facility] Absolute Basophils 0.2 0.0 - 0.2 10e3/uL 06/28/2024 7:14 AM MACHINE OPERATOR CANE CUTTER [facility] Absolute Immature Granulocytes 0.1 <=0.4 10e3/uL 06/28/2024 7:14 AM MACHINE OPERATOR CANE CUTTER [facility] Absolute NRBCs 0.1 10e3/uL 06/28/2024 7:14 AM MACHINE OPERATOR CANE CUTTER [facility] Blood VENOUS LINE / Unknown Venipuncture / Unknown 06/28/2024 6:06 AM MACHINE OPERATOR CANE CUTTER 06/28/2024 6:22 AM MACHINE OPERATOR CANE CUTTER Rl Elias MD LAB - BLOOD ORDER SYD Final Result Performing Organization Address City/[facility]/ZIP Co de Phone Number LABORATORY [facility] [address] [facility], [address] * (ABNORMAL) Reticulocyte count (06/28/2024 6:06 AM MACHINE OPERATOR CANE CUTTER) [facility] % Reticulocyte 12.7(H) 0.5 - 2.0 % 06/28/2024 6:57 AM MACHINE OPERATOR CANE CUTTER [facility] Comment:x2 dilution Absolute Reticulocyte 0.316(H) 0.025 - 0.095 10e6/uL 06/28/2024 6:57 AM MACHINE OPERATOR CANE CUTTER [facility] Comment:x2 dilution Blood VENOUS LINE / Unknown Venipuncture / Unknown 06/28/2024 6:06 AM MACHINE OPERATOR CANE CUTTER 06/28/2024 6:22 AM MACHINE OPERATOR CANE CUTTER Rl Elias MD LAB - BLOOD ORDER SYD Final Result LABORATORY [facility] [address] [facility], [address] * (ABNORMAL) Lactate Dehydrogenase (06/28/2024 6:06 AM MACHINE OPERATOR CANE CUTTER) Lactate Dehydrogenase 451(H) 0 - 250 U/L 06/28/2024 6:51 AM MACHINE OPERATOR CANE CUTTER [facility] Blood VENOUS LINE / Unknown Venipuncture / Unknown 06/28/2024 6:06 AM MACHINE OPERATOR CANE CUTTER 06/28/2024 6:22 AM MACHINE OPERATOR CANE CUTTER Rl Elias MD LAB - BLOOD ORDER SYD Final Result [facility] [address] [facility], [address] [place] [phone] * (ABNORMAL) Comprehensive metabolic panel (06/28/2024 6:06 AM MACHINE OPERATOR CANE CUTTER) Pathologist [facility] Sodium 134(L) 135 - 145 mmol/L 06/28/2024 6:51 AM MACHINE OPERATOR CANE CUTTER [facility] Potassium 4.6 3.4 - 5.3 mmol/L 06/28/2024 6:51 AM MACHINE OPERATOR CANE CUTTER [facility] Carbon Dioxide (CO2) 22 22 - 29 mmol/L 06/28/2024 6:51 AM MACHINE OPERATOR CANE CUTTER [facility] Anion Gap 7 7 - 15 mmol/L 06/28/2024 6:51 AM MACHINE OPERATOR CANE CUTTER [facility] Urea Nitrogen 11.8 6.0 - 20.0 mg/dL 06/28/2024 6:51 AM MACHINE OPERATOR CANE CUTTER [facility] Creatinine 0.70 0.51 - 0.95 mg/dL 06/28/2024 6:51 AM MACHINE OPERATOR CANE CUTTER [facility] GFR Estimate >90 >60 mL/min/1.7 3m2 06/28/2024 6:51 AM MACHINE OPERATOR CANE CUTTER [facility] Comment:eGFR calculated us2020 CKD-EPI equation. Calcium 8.9 8.8 - 10.4 mg/dL 06/28/2024 6:51 AM MACHINE OPERATOR CANE CUTTER [facility] Chloride 105 98 - 107 mmol/L 06/28/2024 6:51 AM MACHINE OPERATOR CANE CUTTER [facility] Glucose 88 70 - 99 mg/dL 06/28/2024 6:51 AM MACHINE OPERATOR CANE CUTTER [facility] Alkaline Phosphatase 106 40 - 150 U/L 06/28/2024 6:51 AM MACHINE OPERATOR CANE CUTTER [facility] AST 34 0 - 45 U/L 06/28/2024 6:51 AM MACHINE OPERATOR CANE CUTTER [facility] ALT 33 0 - 50 U/L 06/28/2024 6:51 AM MACHINE OPERATOR CANE CUTTER [facility] Protein Total 7.2 6.4 - 8.3 g/dL 06/28/2024 6:51 AM MACHINE OPERATOR CANE CUTTER [facility] Albumin 4.0 3.5 - 5.2 g/dL 06/28/2024 6:51 AM MACHINE OPERATOR CANE CUTTER [facility] Bilirubin Total 1.3(H) <=1.2 mg/dL 06/28/2024 6:51 AM MACHINE OPERATOR CANE CUTTER [facility] Blood VENOUS LINE / Unknown Venipuncture / Unknown 06/28/2024 6:06 AM MACHINE OPERATOR CANE CUTTER 06/28/2024 6:22 AM MACHINE OPERATOR CANE CUTTER Rl Elias MD LAB - BLOOD ORDER SYD Final Result Performing Organization Address [facility]/ZIP Co de Phone Number U LABORATORY [facility] Lab [address] [facility], [address] [phone] * Heparin Unfractionated Anti Xa Level (06/28/2024 1:57 AM MACHINE OPERATOR CANE CUTTER) [facility] [employer] Signature Anti Xa Unfractionated Heparin 0.45 For Reference Range, See Comment IU/mL 06/28/2024 2:32 AM MACHINE OPERATOR CANE CUTTER [facility] Blood VENOUS LINE / Unknown Venipuncture / Unknown 06/28/2024 1:57 AM MACHINE OPERATOR CANE CUTTER 06/28/2024 2:17 AM MACHINE OPERATOR CANE CUTTER Narrative [facility] - 06/28/2024 2:32 AM MACHINE OPERATOR CANE CUTTER Therapeutic Range: UFH: 0.25-0.50 IU/mL for low intensity dosing, 0.30-0.70 IU/mL for high intensity dosing DVT and PE. This test is not validated for other direct factor X inhibitors (e.g. rivaroxaban, apixaban, edoxaban, betrixaban, fondaparinux) and should not be used for monitoring of other medications. us Alex Gillespie MD LAB - BLOOD ORDERABLES Final Re sult [facility] [address] [facility], [address] * Heparin Unfractionated Anti Xa Level (06/27/2024 7:14 PM MACHINE OPERATOR CANE CUTTER) [facility] Anti Xa Unfractionated Heparin 0.39 For Reference Range, See Comment IU/mL 06/27/2024 7:58 PM MACHINE OPERATOR CANE CUTTER U LABORATORY Blood STRUCTURE OF RIGHT HAND / Unknown Venipuncture / Unknown 06/27/2024 7:14 PM MACHINE OPERATOR CANE CUTTER 06/27/2024 7:21 PM MACHINE OPERATOR CANE CUTTER Narrative [facility] - 06/27/2024 7:58 PM MACHINE OPERATOR CANE CUTTER Therapeutic Range: UFH: 0.25-0.50 IU/mL for low intensity dosing, 0.30-0.70 IU/mL for high intensity dosing DVT and PE. This test is not validated for other direct factor X inhibitors (e.g. rivaroxaban, apixaban, edoxaban, betrixaban, fondaparinux) and should not be used for monitoring of other medications. Octavio Rivera MD LAB - BLOOD ORDERABLES Final Res ult LABORATORY [facility] [address] [facility], [address] * Extra Green Top ([place] Heparin) Tube (06/27/2024 5:55 PM MACHINE OPERATOR CANE CUTTER) [facility] Hold Specimen JIC 06/27/2024 8:31 PM MACHINE OPERATOR CANE CUTTER U LABORATORY Blood STRUCTURE OF RIGHT WRIST REGION / Unknown Venipuncture / Unknown 06/27/2024 5:55 PM MACHINE OPERATOR CANE CUTTER 06/27/2024 7:22 PM MACHINE OPERATOR CANE CUTTER Alex Gillespie MD LAB - BLOOD ORDERABLES Final Re sult LABORATORY [facility] [address] [facility], [address] [phone] * ECHO COMPLETE (06/27/2024 2:33 PM MACHINE OPERATOR CANE CUTTER) LVEF 55-60% CARDIOLOGY RESULTS Anatomical Region Laterality Modality Echocardiography 06/27/2024 1:58 PM MACHINE OPERATOR CANE CUTTER Narrative 06/27/2024 2:51 PM [facility] [id number]^BRITTANEY^JERMAINE [facility] [facility] [address] [place] [id number] Name: LEW HERNÁNDEZ : 1995 Study Date: 06/27/2024 01:58 PM Age: 29 yrs Gender: Female Patient Location: [facility] Reason For Study: Pulmonary Emboli [...] Procedure Note Salvador Perea MD - 06/27/2024 [id number]^BRITTANEY^JERMAINE [facility] [facility] [address] [place] [id number] Name: LEW HERNÁNDEZ : 1995 Study Date: 06/27/2024 01:58 PM Age: 29 yrs Gender: Female Patient Location: [facility] Reason For Study: Pulmonary Emboli [...] PEREA MD on 06/27/2024 02:51 PM us Jermiane Quispe MD CV ECHO ORDERABLES Edited Result - Final * Heparin Unfractionated Anti Xa Level (06/27/2024 12:39 PM MACHINE OPERATOR CANE CUTTER) Anti Xa Unfractionated Heparin 0.29 For Reference Range, See Comment IU/mL 06/27/2024 1:22 PM MACHINE OPERATOR CANE CUTTER [facility] Blood STRUCTURE OF LEFT HAND / Unknown Venipuncture / Unknown 06/27/2024 12:39 PM MACHINE OPERATOR CANE CUTTER 06/27/2024 12:54 PM MACHINE OPERATOR CANE CUTTER Narrative [facility] - 06/27/2024 1:22 PM MACHINE OPERATOR CANE CUTTER Therapeutic Range: UFH: 0.25-0.50 IU/mL for low intensity dosing, 0.30-0.70 IU/mL for high intensity dosing DVT and PE. This test is not validated for other direct factor X inhibitors (e.g. rivaroxaban, apixaban, edoxaban, betrixaban, fondaparinux) and should not be used for monitoring of other medications. us Esdras Markham MD LAB - BLOOD ORDERABLES Final Res ult [facility]AT[facility] Lab [address] [facility], [address] [phone] * US Lower Extremity Venous Duplex Bilateral (06/27/2024 11:21 AM MACHINE OPERATOR CANE CUTTER) Anatomical Region Laterality Modality Vascular, Thigh, Leg Ultrasound Impressions 06/27/2024 11:45 AM MACHINE OPERATOR CANE CUTTER IMPRESSION: No evidence of deep venous thrombosis in either lower extremity. I have personally reviewed the examination and initial interpretation and I agree with the findings. NINOSKA QUAN MD Narrative 06/27/2024 11:45 AM MACHINE OPERATOR CANE CUTTER EXAMINATION: DOPPLER VENOUS ULTRASOUND OF BILATERAL LOWER [...] with the findings. NINOSKA QUAN MD Rl Marly Elias MD [facility] ORDERABLES Final Result * Influenza A/B, RSV and SARS-CoV2 PCR (COVID-19) Nose (06/27/2024 8:43 AM MACHINE OPERATOR CANE CUTTER) Pathologist [facility] Influenza A PCR Negative Negative 06/27/2024 10:03 AM MACHINE OPERATOR CANE CUTTER [facility] Influenza B PCR Negative Negative 06/27/2024 10:03 AM MACHINE OPERATOR CANE CUTTER [facility] RSV PCR Negative Negative 06/27/2024 10:03 AM MACHINE OPERATOR CANE CUTTER [facility] SARS CoV2 PCR Negative Negative 06/27/2024 10:03 AM MACHINE OPERATOR CANE CUTTER [facility] Comment:NEGATIVE: SARS-CoV-2 (COVID-19) RNA not detected, presumed negative. Swab NASAL STRUCTURE / Unknown Non-blood Collection / Unknown 06/27/2024 8:43 AM MACHINE OPERATOR CANE CUTTER 06/27/2024 8:59 AM MACHINE OPERATOR CANE CUTTER Narrative [facility] - 06/27/2024 10:03 AM MACHINE OPERATOR CANE CUTTER Testing was performed using the Xpert Xpress CoV2/Flu/RSV Assay on the [employer] GeneXpert Instrument. This test should be ordered [...] was validated by the [facility]. These laboratories are certified under the Clinical Laboratory Improvement Amendments of 1988 (CLIA-88) as qualified to perfom high complexity laboratory testing. Rl Elias MD LAB - MICRO GENER AL ORDERABLES Final Result [facility] Inf. Diseases Diag. Lab [address] [facility], [address] [place] [phone] * (ABNORMAL) UA with Microscopic reflex to Culture (06/27/2024 8:12 AM MACHINE OPERATOR CANE CUTTER) Color Urine Light Yellow Colorless, Straw, Light Yellow, Yellow 06/27/2024 8:29 AM MACHINE OPERATOR CANE CUTTER [facility] Appearance Urine Clear Clear 06/28/19 8:29 AM MACHINE OPERATOR CANE CUTTER [facility] Glucose Urine Negative Negative mg/dL 06/27/2024 8:29 AM MACHINE OPERATOR CANE CUTTER [facility] Bilirubin Urine Negative Negative 8:29 AM MACHINE OPERATOR CANE CUTTER [facility] Ketones Urine Negative Negative mg/dL 06/27/2024 8:29 AM MACHINE OPERATOR CANE CUTTER [facility] Specific Valders Urine 1.011 1.003 - 1.035 06/27/2024 8:29 AM MACHINE OPERATOR CANE CUTTER [facility] Blood Urine Negative Negative 06/27/2024 8:29 AM MACHINE OPERATOR CANE CUTTER [facility] pH Urine 7.0 5.0 - 7.0 06/27/2024 8:29 AM MACHINE OPERATOR CANE CUTTER [facility] Protein Albumin Urine Negative Negative mg/dL 06/27/2024 8:29 AM MACHINE OPERATOR CANE CUTTER [facility] Urobilinogen Urine Normal Normal, 2.0 mg/dL 06/27/2024 8:29 AM MACHINE OPERATOR CANE CUTTER [facility] Nitrite Urine Negative Negative 06/27/2024 8:29 AM MACHINE OPERATOR CANE CUTTER [facility] Leukocyte Esterase Urine Negative Negative 06/27/2024 8:29 AM MACHINE OPERATOR CANE CUTTER [facility] RBC Urine 0 <=2 /HPF 06/27/2024 8:29 AM MACHINE OPERATOR CANE CUTTER [facility] WBC Urine 0 <=5 /HPF 06/27/2024 8:29 AM MACHINE OPERATOR CANE CUTTER [facility] Squamous Epithelials Urine 2(H) <=1 /HPF 06/27/2024 8:29 AM MACHINE OPERATOR CANE CUTTER [facility] Urine URINE SPECIMEN OBTAINED BY CLEAN CATCH PROCEDURE / Unknown Non-blood Collection / Unknown 06/27/2024 8:12 AM MACHINE OPERATOR CANE CUTTER 06/27/2024 8:18 AM MACHINE OPERATOR CANE CUTTER Narrative [facility] - 06/27/2024 8:29 AM MACHINE OPERATOR CANE CUTTER Urine Culture not indicated Rl Elias MD LAB - URINE ORDER SYD Final Result [facility] LAB[facility] [address] [facility], [address] [place] [phone], [facility] * Adult Type and Screen (06/27/2024 5:57 AM MACHINE OPERATOR CANE CUTTER) ABO/RH(D) A POS 06/27/2024 11:54 AM MACHINE OPERATOR CANE CUTTER [facility] Antibody Screen Negative Negative 06/27/2024 11:54 AM MACHINE OPERATOR CANE CUTTER [facility] Comment:Current antibody scr een is negative. Patient has a history of antibody(ies). A delay in compatible red blood cells may occur. SPECIMEN EXPIRATION DATE [id number] 06/27/2024 11:54 AM MACHINE OPERATOR CANE CUTTER [facility] Blood BLOOD SPECIMEN / Unknown Venipuncture / Unknown 06/27/2024 5:57 AM MACHINE OPERATOR CANE CUTTER 06/27/2024 6:07 AM MACHINE OPERATOR CANE CUTTER Rl Elias MD LAB - BLOOD BANK TEST ORDER Final Result [facility] [address] [place] [phone] * (ABNORMAL) RBC and Platelet Morphology (06/27/2024 5:57 AM MACHINE OPERATOR CANE CUTTER) RBC Morphology Confirmed RBC Indices 06/27/2024 10:33 AM MACHINE OPERATOR CANE CUTTER [facility] Platelet Assessment Automated Count Confirmed. Platelet morphology is normal. Automated Count Confirmed. Platelet morphology is normal. 06/27/2024 10:33 AM MACHINE OPERATOR CANE CUTTER [facility] Prosperity Cells Moderate(A) None Seen 06/27/2024 10:33 AM MACHINE OPERATOR CANE CUTTER [facility] Polychromasia Slight(A) None Seen 06/27/2024 10:33 AM MACHINE OPERATOR CANE CUTTER [facility] Sickle Cells Slight(A) None Seen 06/27/2024 10:33 AM MACHINE OPERATOR CANE CUTTER [facility] Target Cells Slight(A) None Seen 06/27/2024 10:33 AM MACHINE OPERATOR CANE CUTTER [facility] Blood BLOOD SPECIMEN / Unknown Venipuncture / Unknown 06/27/2024 5:57 AM MACHINE OPERATOR CANE CUTTER 06/27/2024 6:07 AM MACHINE OPERATOR CANE CUTTER us Rl Elias MD LAB - BLOOD ORDER SYD Final Result [facility] [address] [facility], [address] [place] [phone] * (ABNORMAL) CBC with platelets and differential (06/27/2024 5:57 AM MACHINE OPERATOR CANE CUTTER) WBC Count 17.8(H) 4.0 - 11.0 10e3/uL 06/27/2024 10:36 AM MACHINE OPERATOR [employer]E C[employer]TER [facility] Comment:Albumin treated bloo d due to Smudge Cells. RBC Count 2.60(L) 3.80 - 5.20 10e6/uL 06/27/2024 10:36 AM MACHINE OPERATOR [employer]E CUTTER [facility] Hemoglobin 8.5(L) 11.7 - 15.7 g/dL 06/27/2024 10:36 AM MACHINE OPERATOR [employer]E CUTTER [facility] Hematocrit 25.9(L) 35.0 - 47.0 % 06/27/2024 10:36 AM MACHINE OPERATOR [employer]E CUTTER [facility] MCV 100 78 - 100 fL 06/27/2024 10:36 AM MACHINE OPERATOR [employer]E CUTTER [facility] MCH 32.7 26.5 - 33.0 pg 06/27/2024 10:36 AM MACHINE OPERATOR [employer]E CUTTER [facility] MCHC 32.8 31.5 - 36.5 g/dL 06/27/2024 10:36 AM MACHINE OPERATOR [employer]E CUTTER [facility] RDW 19.2(H) 10.0 - 15.0 % 06/27/2024 10:36 AM MACHINE OPERATOR [employer]E CUTTER [facility] Platelet Count 469(H) 150 - 450 10e3/uL 06/27/2024 10:36 AM MACHINE OPERATOR [employer]E C[employer] [facility] % Neutrophils 44 % 06/27/2024 10:36 AM MACHINE OPERATOR [employer]E CUTTER [facility] % Lymphocytes 46 % 06/27/2024 10:36 AM MACHINE OPERATOR [employer]E CUTTER [facility] % Monocytes 7 % 06/27/2024 10:36 AM MACHINE OPERATOR [employer]E C[employer]TER [facility] % Eosinophils 3 % 06/27/2024 10:36 AM MACHINE OPERATOR [employer]E C[employer] [facility] % Basophils 1 % 06/27/2024 10:36 AM MACHINE OPERATOR [employer]E C[employer]TER [facility] % Immature Granulocytes 0 % 06/27/2024 10:36 AM MACHINE OPERATOR [employer]E C[employer]TER [facility] NRBCs per 100 WBC 1(H) <1 /100 025 10:36 AM MACHINE OPERATOR [employer]E CUTTER [facility] Absolute Neutrophils 7.6 1.6 - 8.3 10e3/uL 06/27/2024 10:36 AM MACHINE OPERATOR [employer]E C[employer]TER [facility] Absolute Lymphocytes 8.0(H) 0.8 - 5.3 10e3/uL 06/27/2024 10:36 AM MACHINE OPERATOR [employer]E C[employer]TER [facility] Absolute Monocytes 1.2 0.0 - 1.3 10e3/uL 06/27/2024 10:36 AM MACHINE OPERATOR [employer]E C[employer]TER [facility] Absolute Eosinophils 0.5 0.0 - 0.7 10e3/uL 06/27/2024 10:36 AM MACHINE OPERATOR [employer]E C[employer]TER [facility] Absolute Basophils 0.2 0.0 - 0.2 10e3/uL 06/27/2024 10:36 AM MACHINE OPERATOR [employer]E CUTTER [facility] Absolute Immature Granulocytes 0.1 <=0.4 10e3/uL 06/27/2024 10:36 AM MACHINE OPERATOR CANE [facility] Absolute NRBCs 0.2 10e3/uL 06/27/2024 10:36 AM MACHINE OPERATOR CANE [facility] Blood BLOOD SPECIMEN / Unknown Venipuncture / Unknown 06/27/2024 5:57 AM MACHINE OPERATOR CANE CUTTER 06/27/2024 6:07 AM MACHINE OPERATOR CANE CUTTER us Rl Elias MD LAB - BLOOD ORDER SYD Final Result [facility] [address] [facility], [address] [place] [address], [facility] * (ABNORMAL) Reticulocyte count (06/27/2024 5:57 AM MACHINE OPERATOR CANE CUTTER) [facility] % Reticulocyte 15.5(H) 0.5 - 2.0 % 06/27/2024 9:16 AM MACHINE OPERATOR CANE [facility] Comment:x2 dilution Absolute Reticulocyte 0.404(H) 0.025 - 0.095 10e6/uL 06/27/2024 9:16 AM MACHINE OPERATOR CANE [facility] Comment:x2 dilution Blood BLOOD SPECIMEN / Unknown Venipuncture / Unknown 06/27/2024 5:57 AM MACHINE OPERATOR CANE CUTTER 06/27/2024 6:07 AM MACHINE OPERATOR CANE CUTTER Rl Elias MD LAB - BLOOD ORDER SYD Final Result U LABORATORY [facility] [address] [facility], [address] [phone] * (ABNORMAL) Hepatic panel (06/27/2024 5:57 AM MACHINE OPERATOR CANE CUTTER) Pathologist [facility] Protein Total 7.4 6.4 - 8.3 g/dL 06/27/2024 9:06 AM MACHINE OPERATOR CANE C[facility] Albumin 4.0 3.5 - 5.2 g/dL 06/27/2024 9:06 AM MACHINE OPERATOR CANE [facility] Bilirubin Total 1.2 <=1.2 mg/dL 06/27/2024 9:06 AM MACHINE OPERATOR CANE [facility] Alkaline Phosphatase 113 40 - 150 U/L 06/27/2024 9:06 AM MACHINE OPERATOR CANE C[facility]TER [facility] AST 41 0 - 45 U/L 06/27/2024 9:06 AM MACHINE OPERATOR CANE [facility] ALT 35 0 - 50 U/L 06/27/2024 9:06 AM MACHINE OPERATOR CANE C[facility]TER [facility] Bilirubin Direct 0.45(H) 0.00 - 0.30 mg/dL 06/27/2024 9:06 AM MACHINE OPERATOR CANE [facility] Blood BLOOD SPECIMEN / Unknown Venipuncture / Unknown 06/27/2024 5:57 AM MACHINE OPERATOR CANE CUTTER 06/27/2024 6:06 AM MACHINE OPERATOR CANE CUTTER Rl Elias MD LAB - BLOOD ORDER SYD Final Result [facility] [address] [facility], [address] [place] [address] * (ABNORMAL) CBC with platelets (06/27/2024 5:57 AM MACHINE OPERATOR CANE CUTTER) [facility] WBC Count 17.8(H) 4.0 - 11.0 10e3/uL 06/27/2024 6:16 AM MACHINE OPERATOR CANE [facility] RBC Count 2.60(L) 3.80 - 5.20 10e6/uL 06/27/2024 6:16 AM MACHINE OPERATOR CANE [facility] Hemoglobin 8.5(L) 11.7 - 15.7 g/dL 06/27/2024 6:16 AM MACHINE OPERATOR CANE [facility] Hematocrit 25.9(L) 35.0 - 47.0 % 06/27/2024 6:16 AM MACHINE OPERATOR CANE [facility] MCV 100 78 - 100 fL 06/27/2024 6:16 AM MACHINE OPERATOR CANE [facility] MCH 32.7 26.5 - 33.0 pg 06/27/2024 6:16 AM MACHINE OPERATOR CANE [facility] MCHC 32.8 31.5 - 36.5 g/dL 06/27/2024 6:16 AM MACHINE OPERATOR CANE C[facility]TER [facility] RDW 19.2(H) 10.0 - 15.0 % 06/27/2024 6:16 AM MACHINE OPERATOR CANE [facility] Platelet Count 469(H) 150 - 450 10e3/uL 06/27/2024 6:16 AM MACHINE OPERATOR CANE [facility] Blood BLOOD SPECIMEN / Unknown Venipuncture / Unknown 06/27/2024 5:57 AM MACHINE OPERATOR CANE CUTTER 06/27/2024 6:07 AM MACHINE OPERATOR CANE CUTTER us Jermaine Quispe MD LAB - BLOOD ORDERABLES Final Res ult [facility] [address] [facility], [address] [place] [address] * (ABNORMAL) Basic metabolic panel (06/27/2024 5:57 AM MACHINE OPERATOR CANE CUTTER) [facility] Sodium 136 135 - 145 mmol/L 06/27/2024 7:08 AM MACHINE OPERATOR CANE [facility] Potassium 4.2 3.4 - 5.3 mmol/L 06/27/2024 7:08 AM MACHINE OPERATOR CANE C[facility]TER [facility] Chloride 104 98 - 107 mmol/L 06/27/2024 7:08 AM MACHINE OPERATOR CANE C[facility]TER [facility] Carbon Dioxide (CO2) 23 22 - 29 mmol/L 06/27/2024 7:08 AM MACHINE OPERATOR CANE [facility] Anion Gap 9 7 - 15 mmol/L 06/27/2024 7:08 AM MACHINE OPERATOR CANE [facility] Urea Nitrogen 8.0 6.0 - 20.0 mg/dL 06/27/2024 7:08 AM MACHINE OPERATOR CANE [facility] Creatinine 0.74 0.51 - 0.95 mg/dL 06/27/2024 7:08 AM MACHINE OPERATOR CANE [facility] GFR Estimate >90 >60 mL/min/1.7 3m2 06/27/2024 7:08 AM MACHINE OPERATOR CANE [facility] Comment:eGFR calculated us2020 CKD-EPI equation. Calcium 8.7(L) 8.8 - 10.4 mg/dL 06/27/2024 7:08 AM MACHINE OPERATOR CANE [facility] Glucose 90 70 - 99 mg/dL 06/27/2024 7:08 AM MACHINE OPERATOR CANE [facility] Blood BLOOD SPECIMEN / Unknown Venipuncture / Unknown 06/27/2024 5:57 AM MACHINE OPERATOR CANE CUTTER 06/27/2024 6:06 AM MACHINE OPERATOR CANE CUTTER us Jermaine Quispe MD LAB - BLOOD ORDERABLES Final Res ult [facility] [address] [facility], [address] [phone] * Heparin Unfractionated Anti Xa Level (06/27/2024 5:56 AM MACHINE OPERATOR CANE CUTTER) Anti Xa Unfractionated Heparin 0.30 For Reference Range, See Comment IU/mL 06/27/2024 6:29 AM MACHINE OPERATOR CANE [facility]TER [facility] Blood STRUCTURE OF RIGHT HAND / Unknown Venipuncture / Unknown 06/27/2024 5:56 AM MACHINE OPERATOR CANE CUTTER 06/27/2024 6:07 AM MACHINE OPERATOR CANE CUTTER Narrative [facility] - 06/27/2024 6:29 AM MACHINE OPERATOR CANE CUTTER Therapeutic Range: UFH: 0.25-0.50 IU/mL for low intensity dosing, 0.30-0.70 IU/mL for high intensity dosing DVT and PE. This test is not validated for other direct factor X inhibitors (e.g. rivaroxaban, apixaban, edoxaban, betrixaban, fondaparinux) and should not be used for monitoring of other medications. Esdras Markham MD LAB - BLOOD ORDERABLES Final Res ult Performing Organization Address [facility] Co de Phone Number LABORATORY [facility] [address] [facility], [address] [phone] * Heparin Unfractionated Anti Xa Level (06/26/2024 10:46 PM MACHINE OPERATOR CANE CUTTER) Pathologist [facility] Anti Xa Unfractionated Heparin 0.28 For Reference Range, See Comment IU/mL 06/26/2024 11:13 PM MACHINE OPERATOR CANE [facility] Blood STRUCTURE OF RIGHT HAND / Unknown Venipuncture / Unknown 06/26/2024 10:46 PM MACHINE OPERATOR CANE CUTTER 06/26/2024 10:55 PM MACHINE OPERATOR CANE CUTTER Narrative [facility] - 06/26/2024 11:13 PM MACHINE OPERATOR CANE CUTTER Therapeutic Range: UFH: 0.25-0.50 IU/mL for low intensity dosing, 0.30-0.70 IU/mL for high intensity dosing DVT and PE. This test is not validated for other direct factor X inhibitors (e.g. rivaroxaban, apixaban, edoxaban, betrixaban, fondaparinux) and should not be used for monitoring of other medications. Jermaine Quispe MD LAB - BLOOD ORDERABLES Final Res ult LABORATORY [facility] [address] [facility], [address] [phone] * (ABNORMAL) Erythrocyte sedimentation rate auto (06/26/2024 6:46 PM MACHINE OPERATOR CANE CUTTER) Erythrocyte Sedimentation Rate 24(H) 0 - 20 mm/hr 06/26/2024 7:28 PM MACHINE OPERATOR CANE [facility] Blood BLOOD SPECIMEN / Unknown Venipuncture / Unknown 06/26/2024 6:46 PM MACHINE OPERATOR CANE CUTTER 06/26/2024 7:14 PM MACHINE OPERATOR CANE CUTTER us Jermaine Quispe MD LAB - BLOOD ORDERABLES Final Res ult [facility] [address] [facility], [address] [place] [address] * Blood Culture Peripheral Blood (06/26/2024 6:46 PM MACHINE OPERATOR CANE CUTTER) Culture No Growth 07/01/2024 9:47 PM MACHINE OPERATOR CANE CUTTER [facility] Blood BLOOD SPECIMEN / Unknown Venipuncture / Unknown 06/26/2024 6:46 PM MACHINE OPERATOR CANE CUTTER 06/26/2024 7:14 PM MACHINE OPERATOR CANE CUTTER us Jermaine Quispe MD LAB - MICRO GENERAL ORDERABLES F inal Result Performing Organization Address [facility] Co de Phone Number [facility] Inf. Diseases Diag. Lab [address] [facility], [address] [place] [phone] * Blood Culture Peripheral Blood (06/26/2024 6:46 PM MACHINE OPERATOR CANE CUTTER) Culture No Growth 07/01/2024 9:47 PM MACHINE OPERATOR CANE CUTTER [facility] Blood BLOOD SPECIMEN / Unknown Venipuncture / Unknown 06/26/2024 6:46 PM MACHINE OPERATOR CANE CUTTER 06/26/2024 7:15 PM MACHINE OPERATOR CANE CUTTER Narrative [facility] - 07/01/2024 9:47 PM MACHINE OPERATOR CANE CUTTER Only an Aerobic Blood Culture Bottle was collected, interpret results with caution. us Jermaine Quispe MD LAB - MICRO GENERAL ORDERABLES F inal Result Performing Organization Address City/[facility]/ZIP Co de Phone Number [facility] Inf. Diseases Diag. Lab [address] [facility], [address] [phone] * EKG 12 lead (06/26/2024 5:19 PM MACHINE OPERATOR CANE CUTTER) Systolic Blood Pressure mmHg RADIOLOGY RESULTS Diastolic Blood Pressure mmHg RADIOLOGY RESULTS Ventricular Rate 79 BPM RAD IOLOGY RESULTS Atrial Rate 79 BPM RADIOLOG Y RESULTS CT Interval 160 ms RADIOLOG Y RESULTS QRS Duration 78 ms RADIOLO GY RESULTS QT 380 ms RADIOLOGY RESULTS QTc 435 ms RADIOLOGY RESULTS P [place] 39 degrees RADIOLOGY RESULTS R AXIS 42 degrees RADIOLOGY RESULTS T [place] 18 degrees RADIOLOGY RESULTS Interpretation ECG Sinus rhythm Normal ECG Unconfirmed report - interpretation of this ECG is computer generated - see medical record for final interpretation Confirmed by - EMERGENCY ROOM, PHYSICIAN ([id number]), news videotape editor Woody Patten ([id number]) on 06/27/2024 6:46:34 AM RADIOLOGY RESULTS 06/26/2024 5:19 PM MACHINE OPERATOR CANE CUTTER 06/27/2024 6:46 AM MACHINE OPERATOR CANE CUTTER us Jayden Adhikari MD ECG ORDERABLES Edited Resul t - Final RADIOLOGY RESULTS * CT Chest Pulmonary Embolism w Contrast (06/26/2024 4:15 PM MACHINE OPERATOR CANE CUTTER) Anatomical Region Laterality Modality Chest, SUBRAD CT BODY, UMP CT CHEST Computed Tomography Impressions 06/26/2024 4:29 PM MACHINE OPERATOR CANE CUTTER IMPRESSION: Bilateral pulmonary emboli and bilateral pulmonary nodules, cannot exclude septic emboli the lungs given 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 No definitive evidence of right heart strain. Some bony changes again noted of sickle cell in the thoracic spine and humeral heads typical of microvascular insults related to sickle cell. EVY FUENTES MD Narrative 06/26/2024 4:29 PM MACHINE OPERATOR CANE CUTTER CT chest pulmonary angiogram with contrast INDICATION: [...] cell. EVY FUENTES MD Jayden Adhikari MD [facility] CT ORDERABLES Final Resu lt * Chest XR, PA & LAT (06/26/2024 3:13 PM MACHINE OPERATOR CANE CUTTER) Anatomical Region Laterality Modality Chest Digital Radiogra phy Impressions 06/26/2024 3:24 PM MACHINE OPERATOR CANE CUTTER IMPRESSION: 1. Stable appearance of right middle lobe opacities which may represent infiltrate versus atelectasis. 2. No new or worsening cardiopulmonary abnormality. I have personally reviewed the examination and initial interpretation and I agree with the findings. EVY FUENTES MD Narrative 06/26/2024 3:24 PM MACHINE OPERATOR CANE CUTTER EXAM: XR CHEST 2 VIEWS 06/26/2024 3:13 [...] with the findings. EVY FUENTES MD Jayden CANALES DIAGNOSTIC IMAGING ORDER SYD Final Result * Procalcitonin (06/26/2024 2:42 PM MACHINE OPERATOR CANE CUTTER) Procalcitonin 0.03 <0.50 ng/mL 06/26/2024 5:02 PM MACHINE OPERATOR CANE [facility]TER [facility] Comment: Interpretation and Recommendations <0.5 [...] See Procalcitonin Guidance document for more details. [email or web address] Factors that may affect PCT levels (not [...] Unknown Venipuncture / Unknown 06/26/2024 2:42 PM MACHINE OPERATOR CANE CUTTER 06/26/2024 2:52 PM MACHINE OPERATOR CANE CUTTER us Jayden Adhikari MD LAB - BLOOD ORDERABLES Final Result [facility] [address] [facility], [address] [place] [address] * CRP inflammation (06/26/2024 2:42 PM MACHINE OPERATOR CANE CUTTER) Pathologist [facility] CRP Inflammation 4.22 <5.00 mg/L 06/27/19 5:02 PM MACHINE OPERATOR CANE CUTTER [facility] Blood BLOOD SPECIMEN / Unknown Venipuncture / Unknown 06/26/2024 2:42 PM MACHINE OPERATOR CANE CUTTER 06/26/2024 2:52 PM MACHINE OPERATOR CANE CUTTER Jayden Adhikari MD LAB - BLOOD ORDERABLES Final Result [facility] [address] [facility], [address] [place] [phone] * Adult Type and Screen (06/26/2024 2:42 PM MACHINE OPERATOR CANE CUTTER) Pathologist [facility] ABO/RH(D) A POS 06/26/2024 2:30 PM MACHINE OPERATOR CANE CUTTER [facility] Antibody Screen Negative Negative 06/26/2024 2:30 PM MACHINE OPERATOR CANE CUTTER [facility] Comment:Current antibody scr een is negative. Patient has a history of antibody(ies). A delay in compatible red blood cells may occur. SPECIMEN EXPIRATION DATE [id number] 06/26/2024 2:30 PM MACHINE OPERATOR CANE CUTTER [facility] Blood BLOOD SPECIMEN / Unknown Venipuncture / Unknown 06/26/2024 2:42 PM MACHINE OPERATOR CANE CUTTER 06/26/2024 2:50 PM MACHINE OPERATOR CANE CUTTER Jayden Adhikari MD LAB - BLOOD BANK TEST ORDER Final Result Performing Organization Address City/[facility]/ZIP Co de Phone Number U BLOOD BANK [address] [place] [address] * (ABNORMAL) CBC with platelets and differential (06/26/2024 2:42 PM MACHINE OPERATOR CANE CUTTER) Pathologist [facility] WBC Count 12.3(H) 4.0 - 11.0 10e3/uL 06/26/2024 3:23 PM MACHINE OPERATOR CANE CUTTER [facility] RBC Count 2.58(L) 3.80 - 5.20 10e6/uL 06/26/2024 3:23 PM MACHINE OPERATOR CANE CUTTER [facility] Hemoglobin 8.5(L) 11.7 - 15.7 g/dL 06/26/2024 3:23 PM MACHINE OPERATOR CANE CUTTER [facility] Hematocrit 26.1(L) 35.0 - 47.0 % 06/26/2024 3:23 PM MACHINE OPERATOR CANE CUTTER [facility] MCV 101(H) 78 - 100 fL 06/26/2024 3:23 PM MACHINE OPERATOR CANE CUTTER [facility] MCH 32.9 26.5 - 33.0 pg 06/26/2024 3:23 PM MACHINE OPERATOR CANE CUTTER [facility] MCHC 32.6 31.5 - 36.5 g/dL 06/26/2024 3:23 PM MACHINE OPERATOR CANE CUTTER [facility] RDW 19.5(H) 10.0 - 15.0 % 06/26/2024 3:23 PM MACHINE OPERATOR CANE CUTTER [facility] Platelet Count 505(H) 150 - 450 10e3/uL 06/26/2024 3:23 PM MACHINE OPERATOR CANE CUTTER [facility] % Neutrophils 69 % 06/26/2024 3:23 PM MACHINE OPERATOR CANE CUTTER [facility] % Lymphocytes 20 % 06/26/2024 3:23 PM MACHINE OPERATOR CANE CUTTER [facility] % Monocytes 9 % 06/26/2024 3:23 PM MACHINE OPERATOR CANE CUTTER [facility] % Eosinophils 1 % 06/26/2024 3:23 PM MACHINE OPERATOR CANE CUTTER [facility] % Basophils 1 % 06/26/2024 3:23 PM MACHINE OPERATOR CANE CUTTER [facility] % Immature Granulocytes 1 % 06/26/2024 3:23 PM MACHINE OPERATOR CANE CUTTER [facility] NRBCs per 100 WBC 1(H) <1 /100 025 3:23 PM MACHINE OPERATOR CANE CUTTER [facility] Absolute Neutrophils 8.4(H) 1.6 - 8.3 10e3/uL 06/26/2024 3:23 PM MACHINE OPERATOR CANE CUTTER [facility] Absolute Lymphocytes 2.4 0.8 - 5.3 10e3/uL 06/26/2024 3:23 PM MACHINE OPERATOR CANE CUTTER [facility] Absolute Monocytes 1.1 0.0 - 1.3 10e3/uL 06/26/2024 3:23 PM MACHINE OPERATOR CANE CUTTER [facility] Absolute Eosinophils 0.1 0.0 - 0.7 10e3/uL 06/26/2024 3:23 PM MACHINE OPERATOR CANE CUTTER [facility] Absolute Basophils 0.2 0.0 - 0.2 10e3/uL 06/26/2024 3:23 PM MACHINE OPERATOR CANE CUTTER [facility] Absolute Immature Granulocytes 0.1 <=0.4 10e3/uL 06/26/2024 3:23 PM MACHINE OPERATOR CANE CUTTER [facility] Absolute NRBCs 0.1 10e3/uL 06/26/2024 3:23 PM MACHINE OPERATOR CANE CUTTER [facility] Blood BLOOD SPECIMEN / Unknown Venipuncture / Unknown 06/26/2024 2:42 PM MACHINE OPERATOR CANE CUTTER 06/26/2024 2:52 PM MACHINE OPERATOR CANE CUTTER Jayden Adhikari MD LAB - BLOOD ORDERABLES Final Result LABORATORY [facility] [address] [facility], [address] [phone] * Troponin T, High Sensitivity (06/26/2024 2:42 PM MACHINE OPERATOR CANE CUTTER) Pathologist [facility] Troponin T, High Sensitivity <6 <=14 ng/L 06/26/2024 3:24 PM MACHINE OPERATOR CANE CUTTER U LABORATORY Comment: Either a High Sensitivity [...] Unknown Venipuncture / Unknown 06/26/2024 2:42 PM MACHINE OPERATOR CANE CUTTER 06/26/2024 2:52 PM MACHINE OPERATOR CANE CUTTER Jayden Adhikari MD LAB - BLOOD ORDERABLES Final Result LABORATORY [facility] [address] [facility], [address] [phone] * (ABNORMAL) D dimer quantitative (06/26/2024 2:42 PM MACHINE OPERATOR CANE CUTTER) Pathologist [facility] D-Dimer Quantitative 0.69(H) 0.00 - 0.50 ug/mL FEU 06/26/2024 3:13 PM MACHINE OPERATOR CANE CUTTER [facility] Blood BLOOD SPECIMEN / Unknown Venipuncture / Unknown 06/26/2024 2:42 PM MACHINE OPERATOR CANE CUTTER 06/26/2024 2:52 PM MACHINE OPERATOR CANE CUTTER Narrative [facility] - 06/26/2024 3:13 PM MACHINE OPERATOR CANE CUTTER This D-dimer assay is intended for use in conjunction with a clinical pretest probability assessment model to exclude pulmonary embolism (PE) and deep venous thrombosis (DVT) in outpatients suspected of PE or DVT. The cut-off value is 0.50 ug/mL FEU. Jayden Adhikari MD LAB - BLOOD ORDERABLES Final Result Performing Organization Address City/[facility]/ZIP Co de Phone Number U LABORATORY [facility] [address] [facility], [address] [phone] * HCG qualitative (blood) (06/26/2024 2:42 PM MACHINE OPERATOR CANE CUTTER) Pathologist [facility] hCG Serum Qualitative Negative Negative JARET 06/26/2024 3:04 PM MACHINE OPERATOR CANE CUTTER [facility] Comment:This test is for scr eening purposes. Results should be interpreted along with the clinical picture. Confirmation testing is available if warranted by ordering [id number], HCG Quantitative . Blood BLOOD SPECIMEN / Unknown Venipuncture / Unknown 06/26/2024 2:42 PM MACHINE OPERATOR CANE CUTTER 06/26/2024 2:50 PM MACHINE OPERATOR CANE CUTTER Jayden Adhikari MD LAB - BLOOD ORDERABLES Final Result Performing Organization Address [facility] Co de Phone Number U LABORATORY [facility] [address] [facility], [address] [phone] * (ABNORMAL) Basic metabolic panel (06/26/2024 2:42 PM MACHINE OPERATOR CANE CUTTER) Pathologist [facility] Sodium 140 135 - 145 mmol/L 06/26/2024 3:24 PM MACHINE OPERATOR CANE CUTTER [facility] Potassium 4.3 3.4 - 5.3 mmol/L 06/26/2024 3:24 PM MACHINE OPERATOR CANE CUTTER [facility] Chloride 109(H) 98 - 107 mmol/L 06/26/2024 3:24 PM MACHINE OPERATOR CANE CUTTER [facility] Carbon Dioxide (CO2) 20(L) 22 - 29 mmol/L 06/26/2024 3:24 PM MACHINE OPERATOR CANE CUTTER [facility] Anion Gap 11 7 - 15 mmol/L 06/26/2024 3:24 PM MACHINE OPERATOR CANE CUTTER [facility] Urea Nitrogen 6.7 6.0 - 20.0 mg/dL 06/26/2024 3:24 PM MACHINE OPERATOR CANE CUTTER [facility] Creatinine 0.66 0.51 - 0.95 mg/dL 06/26/2024 3:24 PM MACHINE OPERATOR CANE CUTTER [facility] GFR Estimate >90 >60 mL/min/1.7 3m2 06/26/2024 3:24 PM MACHINE OPERATOR CANE CUTTER [facility] Comment:eGFR calculated 2020 CKD-EPI equation. Calcium 9.0 8.8 - 10.4 mg/dL 06/26/2024 3:24 PM MACHINE OPERATOR CANE CUTTER [facility] Glucose 94 70 - 99 mg/dL 06/26/2024 3:24 PM MACHINE OPERATOR CANE CUTTER [facility] Blood BLOOD SPECIMEN / Unknown Venipuncture / Unknown 06/26/2024 2:42 PM MACHINE OPERATOR CANE CUTTER 06/26/2024 2:52 PM MACHINE OPERATOR CANE CUTTER Jayden Adhikari MD LAB - BLOOD ORDERABLES Final Result [facility] [address] [facility], [address] [place] [phone] documented in this encounter Visit [...] DVT-PE TreatmentIndications:DVT-PE Treatment $Given 06/29/2024 7:56 AM MACHINE OPERATOR CANE CUTTER 10 mg $Given 06/28/2024 8:15 PM MACHINE OPERATOR CANE CUTTER 10 mg $Given 06/28/2024 8:14 AM MACHINE OPERATOR CANE CUTTER 10 mg apixaban ANTICOAGULANT (ELIQUIS) tablet 5 [...] For 1 dose $Given 06/26/2024 2:36 PM MACHINE OPERATOR CANE CUTTER 25 mg diphenhydrAMINE (BENADRYL) capsule 25 mg 25 mg, Oral, EVERY 6 HOURS PRN, itching, Starting on Wed06/26/24 at 1837 $Given 06/26/2024 7:20 PM MACHINE OPERATOR CANE CUTTER 25 mg diphenhydrAMINE (BENADRYL) injection 25 mg 25 mg, Intravenous, EVERY 6 HOURS PRN, itching, Starting on Wed06/26/24 at 1837 $Given 06/29/2024 6:00 AM MACHINE OPERATOR CANE CUTTER 25 m g $Given 06/28/2024 10:07 PM MACHINE OPERATOR CANE CUTTER 25 mg $Given 06/28/2024 4:09 PM MACHINE OPERATOR CANE CUTTER 25 mg FLUoxetine (PROzac) capsule 10 mg 10 mg, Oral, DAILY, First dose on Wed06/27/24 at 0800 $Given 06/29/2024 7:56 AM MACHINE OPERATOR CANE CUTTER 10 mg $Given 06/28/2024 8:14 AM MACHINE OPERATOR CANE CUTTER 10 mg $Given 06/27/2024 8:28 AM MACHINE OPERATOR CANE CUTTER 10 mg heparin - BOLUS DOSE from [...] re-enter medication order. $Given 06/27/2024 12:06 AM MACHINE OPERATOR CANE CUTTER 1,550 Units heparin - BOLUS DOSE from infusion 1,550 Units (rounded from 1,530 Units = 30 Units/kg 51 kg), Intravenous, ONCE, On 06/27/24 at 1335, For 1 dose, IV PUMP PROGRAMMING: Program continuous infusion first, then program bolus dose. Infuse over 5 minutes. For Heparin Anti-Xa value 0.18-0.29 High Intensity Heparin Treatment- Anti-Xa monitoring Nurse to administer dose from existing infusion. If no infusion bag or syringe for this order is available, contact pharmacist to re-enter medication order. $Given 06/27/2024 1:34 PM MACHINE OPERATOR [employer] 1,550 Units heparin 25,000 units in 0.45% [...] Xa 0.3-0.7) $New Bag 06/28/2024 7:51 AM MACHINE OPERATOR [employer] 1,200 Units/hr 12 mL/hr Rate/Dose Verify 06/28/2024 3:17 AM MACHINE OPERATOR [employer] 1,200 Units/hr 12 mL/hr Rate/Dose Verify 06/27/2024 8:21 PM MACHINE OPERATOR [employer] 1,200 Units/hr 12 mL/hr heparin ANTICOAGULANT Loading [...] re-enter medication order. $Given 06/26/2024 4:50 PM MACHINE OPERATOR [employer] 4,100 Units heparin lock flush 100 unit/mL [...] each port lumen $Given 06/29/2024 10:31 AM MACHINE OPERATOR [employer] 5 mLs hydromorphone (DILAUDID) injection 2 mg 2 mg, Intravenous, EVERY 1 HOUR PRN, severe pain, Starting on Wed06/26/24 at 1429, For 3 doses $Given 06/26/2024 4:34 PM MACHINE OPERATOR [employer] 2 mg $Given 06/26/2024 3:34 PM MACHINE OPERATOR [employer] 2 mg $Given 06/26/2024 2:40 PM MACHINE OPERATOR [employer] 2 mg hydromorphone (DILAUDID) injection 2 mg 2 mg, Intravenous, EVERY 2 HOURS PRN, moderate pain, severe pain, Starting on Wed06/26/24 at 1837 $Given 06/26/2024 9:48 PM MACHINE OPERATOR [employer] 2 mg $Given 06/26/2024 7:20 PM MACHINE OPERATOR [employer] 2 mg hydromorphone (DILAUDID) injection 2 mg 2 mg, Intravenous, EVERY 2 HOURS, First dose (after last modification) on Wed06/27/24 at 0000, Hold for excess sedation or RR < 8 / min and inform MD. $Given 06/29/2024 10:06 AM MACHINE OPERATOR [employer] 2 mg $Given 06/29/2024 8:00 AM MACHINE OPERATOR [employer] 2 mg $Given 06/29/2024 6:00 AM MACHINE OPERATOR CANE CUTTER 2 mg hydroxyurea (HYDREA) capsule 1,000 mg 1,000 mg, Oral, 2 TIMES DAILY, First dose on Wed06/26/24 at 2000, Indications: sickle cell, Do not crush May require hepatic and/or renal dose or frequency adjustments. See reference link for guidelines.Indications:sickle cell $Given 06/29/2024 7:56 AM MACHINE OPERATOR CANE CUTTER 1,000 mg $Given 06/28/2024 8:10 PM MACHINE OPERATOR CANE CUTTER 1,000 mg $Given 06/28/2024 8:18 AM MACHINE OPERATOR CANE CUTTER 1,000 mg hydrOXYzine HCl (ATARAX) tablet 25 [...] contact the provider. $Given 06/28/2024 4:09 PM MACHINE OPERATOR CANE CUTTER 25 mg $Given 06/27/2024 8:19 AM MACHINE OPERATOR CANE CUTTER 25 mg $Given 06/27/2024 3:14 AM MACHINE OPERATOR CANE CUTTER 25 mg hydrOXYzine HCl (ATARAX) tablet 50 [...] For 1 dose $Given 06/26/2024 3:53 PM MACHINE OPERATOR CANE CUTTER 55 mLs lactated ringers BOLUS 1,000 mL Intravenous, 1,000 mL, ONCE, at 500 mL/hr, Administer over 2 Hours, On Wed06/26/24 at 1435, For 1 dose $New Bag 06/26/2024 2:40 PM MACHINE OPERATOR CANE CUTTER 1,000 mLs 500 mL/hr Lidocaine (LIDOCARE) 4 [...] Liquid not required. $Given 06/28/2024 8:14 AM MACHINE OPERATOR CANE CUTTER 4 mg $Given 06/28/2024 2:02 AM MACHINE OPERATOR CANE CUTTER 4 mg $Given 06/27/2024 8:19 PM MACHINE OPERATOR CANE CUTTER 4 mg ondansetron (ZOFRAN) injection 4 mg [...] IV dormant line $Given 06/29/2024 10:06 AM MACHINE OPERATOR CANE CUTTER 3 mLs $Given 06/29/2024 4:00 AM MACHINE OPERATOR CANE CUTTER 3 mLs $Given 06/28/2024 6:05 PM MACHINE OPERATOR CANE CUTTER 3 mLs sodium chloride (PF) 0.9% PF flush 82 mL 82 mL, Intravenous, ONCE, On Wed06/26/24 at 1540, For 1 dose $Given 06/26/2024 3:53 PM MACHINE OPERATOR CANE CUTTER 82 mLs documented in this encounter Active and Recently Administered Medications Times are shown in MACHINE OPERATOR CANE CUTTER. Scheduled Medication Order 06/27/2024 06/28/2024 06/29/2024 apixaban [...] Goetz RN) 0756 ($Given - Provider: Maki Schultz RN) heparin - BOLUS DOSE from infusion [...] inform MD. 0159 ($Given - Provider: Gordo Sykes RN)0400 ($Given - Provider: Gordo Sykes, SOFIA)0601 ($Given - Provider: Gordo Sykes, SOFIA)0818 ($Given - Provider: Sathish Goetz RN)1030 ($Given - Provider: Stahish Goetz RN)1234 ($Given - Provider: Sathish Goetz RN)1432 ($Given [...] Sathish Goetz RN)1218 ($Given - Provider: Sathish Goetz, SOFIA)1424 ($Given - Provider: Sathish Goetz, SOFIA)1609 ($Given - Provider: Tika Osborn RN)1805 ($Given - Provider: Tika Osborn RN)2010 ($Given - Provider: Kathy Mccoy RN)2203 ($Given - Provider: Kathy Mccoy RN) 0004 ($Given - Provider: Kathy Mccoy RN)0200 ($Given - Provider: Kathy Mccoy RN)0359 ($Given - Provider: Lavinia Cruz, RN)0600 ($Given - Provider: Lavinia Cruz, RN)0800 ($Given - Provider: Maki Schultz, SOFIA)1006 ($Given [...] Olivares RN) 0818 ($Given - Provider: Sathish Goetz, SOFIA)2009 ($Given - Provider: Kathy Mccoy RN) 0756 [...] Lavinia Cruz, SOFIA)1006 ($Given - Provider: Maki Schultz RN) Continuous Medication Order 06/27/2024 06/28/2024 06/29/2024 heparin [...] XA result- 0.30, in target range so keno writer is NOT adjusting. ordered next lab [...] Osborn RN)2207 (See Alternative - Provider: Kathy Mccoy RN) 0600 (See Alternative - Provider: Lavinia Cruz RN) diphenhydrAMINE (BENADRYL) injection 25 mg(Linked Group 2) [...] Tika Osborn RN)2207 ($Given - Provider: Kathy Mccoy RN) 0600 ($Given - Provider: Lavinia Cruz RN) [...] statement))0819 ($Given - Provider: Sathish Goetz RN) 1604 ($Given - Provider: Tika Osborn RN) hydrOXYzine [...] (See Alternative - Provider: Sathish Goetz RN) 1603 (See Alternative - Provider: Tika Osborn RN) [...] Sykes RN)0819 ($Given - Provider: Sathish Goetz RN)2019 ($Given - Provider: Duke Olivares RN) 0202 [...] (COMPAZINE). 0157 (See Alternative - Provider: Gordo Sykes, RN)0819 (See Alternative - Provider: Sathish Goetz, RN)2018 (See Alternative - Provider: Duke Olivares, SOFIA) 020 (See Alternative - Provider: Duke Olivares, SOFIA)0814 (See Alternative - Provider: Sathish Goetz, SOFIA) Patient is already receiving anticoagulation with heparin, [...] Out COVID-19 06/27/2024 06/27/2024 06/27/2024 10:03 AM MACHINE OPERATOR CANE CUTTER documented as of this encounter Care Teams Mastercam Programmer Relationship Specialty Start Date End Date Veronica Joseph MD [address] [place] [address] PCP - General Family Medicine 06/18/24 Mor Ramsey Medical Student 04/03/24 Case Samuel MD [address] [place] [address] 484, [address] [place] [address] Assigned Pediatric Specialist Provider 05/18/24 Juhi Benson, RN Specialty Boat Garnisher Hematology & Oncology 05/29/24 documented as of this encounter
--- OUTSIDE RECORDS SUMMARY | 2024-07-28 20:46 | XMS_ITS | Encounter Summary ---
Author Organization [facility] Address [address] [place] [address] Care Team Providers Care Bacteriologist Soil Name Role Phone RoxyElvirac Unavailable Unavailable Case Samuel MD Unavailable [phone] Juhi Benson RN Unavailable Unavailable Veronica Joseph MD Primary Care Provider [phone] Reason for Visit * Reason Comments Sickle Cell Pain Crisis * Auth/Cert Specialty Diagnoses / Procedures Referred By Shahid pendleton Referred To Contact EMERGENCY MEDICINE Diagnoses Acute pulmonary embolism without acute cor pulmonale, unspecified pulmonary embolism type (H) Sickle cell pain crisis (H) [facility] Emergency Department [address] [place] [address] Phone: tel: Referral ID Status Reason Start Date Expiration Date Visits Re quested Visits Authorized [id number] 1 1 Encounter Details Date Type Department Care Team (Late st Contact Info) Description 06/25/2024 9:50 PM PREPARER MAKING DEPARTMENT - 06/26/2024 1:11 AM PREPARER MAKING DEPARTMENT Emergency [facility] Emergency Department [address] [place] [phone] Polly Naylor MD [address] [place], [place] [id number] Marissa Matos MD [address] [place] [id number] Sickle cell disease with crisis (H); Chest [...] on file Legal Sex Female 8:25 AM PREPARER MAKING DEPARTMENT Gender Identity Not on file Sexual Orientation Not on file documented as of this encounter Last Filed Vital Signs Vital Sign Reading Time Taken Comments Blood Pressure 117/81 06/25/2024 9:46 PM PREPARER MAKING DEPARTMENT Pulse 104 06/25/2024 9:46 PM PREPARER MAKING DEPARTMENT Temperature 36.8 C (98.2 F) 06/25/2024 9:46 PM PREPARER MAKING DEPARTMENT Respiratory Rate 16 06/25/2024 9:46 PM PREPARER MAKING DEPARTMENT Oxygen Saturation 98% 06/25/2024 9:46 PM PREPARER MAKING DEPARTMENT Inhaled Oxygen Concentration - - Weight 51 kg (112 lb 6.4 oz) 06/25/2024 9:46 PM PREPARER MAKING DEPARTMENT Height - - Body Mass Index 21.24 06/24/2024 9:26 AM PREPARER MAKING DEPARTMENT documented in this encounter Discharge Instructions * Discharge Instructions* Polly Naylor MD - 06/26/2024 12:04 AM PREPARER MAKING DEPARTMENT You are seen in the emergency department [...] that time. Otherwise, please follow-up with your director software quality assurance as previously planned tomorrow. ARER MAKING DEPARTMENT documented in this encounter Medications at Time [...] tablet 11 05/01/2024 hydroxyurea (HYDREA) 500 MG capsuleIndications :History [...] 05/01/2024 naloxone (NARCAN) 4 MG/0.1ML nasal spray [place] 1 spray (4 mg) into one nostril [...] note were not included. ED Provider Note [facility] EMERGENCY DEPARTMENT ([facility]) 06/25/24 ED PROVIDER NOTE History Chief [...] she is hoping to get evaluatedby her director software quality assurance. 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 [...] chest pain Rhythm: normal sinus Rate: normal Kechi: normal Ectopy: none Conduction: normal ST Segments/ T Waves: No ST-T wave changes Q Waves: none Comparison to prior: Unchanged Clinical Impression: normal EKG Results for orders placed or performed during the hospital encounter of 06/25/24 XR Chest 2 Views Status: None Narrative EXAM: XR CHEST 2 VIEWS LOCATION: [facility] DATE: 06/25/2024 INDICATION: Chest pain, SSC. COMPARISON: [...] Negative Ketones Urine Negative Negative mg/dL Specific [place] Urine 1.009 1.003 - 1.035 Blood Urine [...] QT 362 ms QTc 435 ms P Kechi 54 degrees R AXIS 84 degrees T Kechi 70 degrees Interpretation ECG Sinus rhythm Normal ECG Unconfirmed report - interpretation of this ECG is computer generated - see medical record for final interpretation Confirmed by - EMERGENCY ROOM, PHYSICIAN ([id number]), online content editor Nivia Willson ([id number]) on 06/25/2024 10:56:42 PM CBC with platelets differential Status: Abnormal Narrative The following orders were created for panel order CBC with platelets differential. Procedure Abnormality Status --------- ------ CBC with platelets and d...[[id number]] Abnormal Final result Please view results for these tests on the individual orders. Medications hydromorphone (DILAUDID) injection 2 mg (2 mg Intravenous $Given 06/25/24 6870) sodium chloride 0.9% BOLUS 1,000 mL (1,000 [...] Bilirubin Urine Negative Ketones Urine Negative Specific [place] Urine 1.009 Blood Urine Negative pH Urine [...] Chest pain, unspecified type Polly Naylor MD [facility] EMERGENCY DEPARTMENT 06/25/2024 Polly Naylor MD 06/26/24 0006 ARER MAKING DEPARTMENT * Juhi Crump RN - 06/25/2024 9:47 PM CST Pt ambulatory from home with sickle cell pain crisis. States pain located in legs and back. Complains of mild chest pain. Triage Assessment (Adult) Row Name 06/25/24 7960 Triage Assessment Airway WDL WDL Respiratory WDL Respiratory WDL WDL Cardiac WDL Cardiac WDL WDL Peripheral/Neurovascular WDL Peripheral Neurovascular WDL WDL Cognitive/Neuro/Behavioral WDL Cognitive/Neuro/Behavioral WDL WDL Lester Coma Scale Best Eye Response 4-->(E4) spontaneous Best Motor Response 6-->(M6) obeys commands Best Verbal Response 5-->(V5) oriented Lester Coma Scale Score 15 ARER MAKING DEPARTMENT documented in this encounter Plan of Treatment Upcoming Encounters Date Type Department Care Team (Late st Contact Info) Description 08/07/2024 7:15 AM CDT Lab [facility] [address] [place] [address] Case Samuel MD [address] [place] [address] 484, [address] [place] [address] 08/08/2024 8:00 AM CDT Appointment [facility] [address] [address] Case Samuel MD [address] [facility] 484, [address] [place] [address] 10/30/2024 11:30 AM CDT Lab [facility] [address] [address] Case Samuel MD [address] [place] [address] 484, [address] [place] [address] 10/30/2024 12:00 PM CDT Oncology Visit [facility] [address] [phone] Case Samuel MD [address] [place] [address] 484, ROOM [address] [address] documented as of this encounter Goals Goal [...] 2 VIEWS STAT 06/25/2024 10:3 5 PM PREPARER MAKING DEPARTMENT EKG 12-LEAD, TRACING ONLY STAT 06/25/2024 10:19 PM PREPARER MAKING DEPARTMENT ROUTINE UA WITH MICROSCOPIC REFLEX TO CULTURE STAT 06/25/2024 10:16 PM PREPARER MAKING DEPARTMENT CBC WITH PLATELETS AND DIFFERENTIAL STAT 06/25/2024 10:15 PM PREPARER MAKING DEPARTMENT TROPONIN T, HIGH SENSITIVITY STAT 06/25/2024 10:15 PM PREPARER MAKING DEPARTMENT CBC WITH PLATELETS & DIFFERENTIAL STAT 06/25/2024 10:15 PM PREPARER MAKING DEPARTMENT BASIC METABOLIC PANEL STAT 06/25/2024 10:15 PM PREPARER MAKING DEPARTMENT documented in this encounter Results * XR Chest 2 Views (06/25/2024 10:35 PM PREPARER MAKING DEPARTMENT) Anatomical Region Laterality Modality Chest Digital Radiogra phy 06/25/2024 10:3 5 PM PREPARER MAKING DEPARTMENT Impressions 06/25/2024 10:47 PM PREPARER MAKING DEPARTMENT IMPRESSION: Bilateral portacatheter with tips in the SVC. Mild low lung volumes. Heart size and pulmonary vascularity stable at the upper limits of normal. Mild patchy right middle lobe infiltrate or atelectasis. Narrative 06/25/2024 10:47 PM PREPARER MAKING DEPARTMENT EXAM: XR CHEST 2 VIEWS LOCATION: [facility] DATE: 06/25/2024 INDICATION: Chest pain, SSC. COMPARISON: 06/16/2024. Procedure Note Jayden Correa MD - 06/25/2024 EXAM: XR CHEST 2 VIEWS LOCATION: [facility] DATE: 06/25/2024 INDICATION: Chest pain, SSC. COMPARISON: 06/16/2024. IMPRESSION: Bilateral portacatheter with tips in the SVC. Mild low lungvolumes. Heart size and pulmonary vascularity stable at the upper limitsof normal. Mild patchy right middle lobe infiltrate or atelectasis. us Polly Naylor MD IMG DIAGNOSTIC IMAGING ORDERABLE S Final Result * EKG 12-lead, tracing only (06/25/2024 10:19 PM PREPARER MAKING DEPARTMENT) Systolic Blood Pressure mmHg RADIOLOGY RESULTS Diastolic Blood Pressure mmHg RADIOLOGY RESULTS Ventricular Rate 87 BPM RAD IOLOGY RESULTS Atrial Rate 87 BPM RADIOLOG Y RESULTS ND Interval 162 ms RADIOLOG Y RESULTS QRS Duration 86 ms RADIOLO GY RESULTS QT 362 ms RADIOLOGY RESULTS QTc 435 ms RADIOLOGY RESULTS P Kechi 54 degrees RADIOLOGY RESULTS R AXIS 84 degrees RADIOLOGY RESULTS T Kechi 70 degrees RADIOLOGY RESULTS Interpretation ECG Sinus rhythm Normal ECG Unconfirmed report - interpretation of this ECG is computer generated - see medical record for final interpretation Confirmed by - EMERGENCY ROOM, PHYSICIAN ([id number]), online content editor Nivia Willson ([id number]) on 06/25/2024 10:56:42 PM RADIOLOGY RESULTS 06/25/2024 10:1 9 PM PREPARER MAKING DEPARTMENT 06/25/2024 10:56 PM PREPARER MAKING DEPARTMENT Polly Naylor MD ECG ORDERABLES Edited Result - Final RADIOLOGY RESULTS * (ABNORMAL) UA with Microscopic reflex to Culture (06/25/2024 10:16 PM PREPARER MAKING DEPARTMENT) Color Urine Light Yellow Colorless, Straw, Light Yellow, Yellow 06/25/2024 10:33 PM PREPARER MAKING DEPARTMENT [facility] Appearance Urine Clear Clear 06/26/19 10:33 PM PREPARER MAKING DEPARTMENT [facility] Glucose Urine Negative Negative mg/dL 06/25/2024 10:33 PM PREPARER MAKING DEPARTMENT [facility] Bilirubin Urine Negative Negative 10:33 PM PREPARER MAKING DEPARTMENT [facility] Ketones Urine Negative Negative mg/dL 06/25/2024 10:33 PM PREPARER MAKING DEPARTMENT [facility] Specific [place] Urine 1.009 1.003 - 1.035 06/25/2024 10:33 PM PREPARER MAKING DEPARTMENT [facility] Blood Urine Negative Negative 06/25/2024 10:33 PM PREPARER MAKING DEPARTMENT [facility] pH Urine 7.5(H) 5.0 - 7.0 06/25/2024 10:33 PM PREPARER MAKING DEPARTMENT [facility] Protein Albumin Urine Negative Negative mg/dL 06/25/2024 10:33 PM PREPARER MAKING DEPARTMENT [facility] Urobilinogen Urine Normal Normal, 2.0 mg/dL 06/25/2024 10:33 PM PREPARER MAKING DEPARTMENT [facility] Nitrite Urine Negative Negative 06/25/2024 10:33 PM PREPARER MAKING DEPARTMENT [facility] Leukocyte Esterase Urine Negative Negative 06/25/2024 10:33 PM PREPARER MAKING DEPARTMENT [facility] RBC Urine 0 <=2 /HPF 06/25/2024 10:33 PM PREPARER MAKING DEPARTMENT [facility] WBC Urine 0 <=5 /HPF 06/25/2024 10:33 PM PREPARER MAKING DEPARTMENT [facility] Squamous Epithelials Urine 2(H) <=1 /HPF 06/25/2024 10:33 PM PREPARER MAKING DEPARTMENT [facility] Urine URINE SPECIMEN OBTAINED BY CLEAN CATCH PROCEDURE / Unknown Non-blood Collection / Unknown 06/25/2024 10:16 PM PREPARER MAKING DEPARTMENT 06/25/2024 10:23 PM PREPARER MAKING DEPARTMENT Narrative [facility] - 06/25/2024 10:33 PM PREPARER MAKING DEPARTMENT Urine Culture not indicated us Polly Naylor MD LAB - URINE ORDERABLES Final Res ult [facility] [place] [facility] [address] [facility], [address] [phone] * (ABNORMAL) CBC with platelets and differential (06/25/2024 10:15 PM PREPARER MAKING DEPARTMENT) WBC Count 12.5(H) 4.0 - 11.0 10e3/uL 06/25/2024 10:30 PM PREPARER MAKING DEPARTMENT [facility] RBC Count 2.32(L) 3.80 - 5.20 10e6/uL 06/25/2024 10:30 PM PREPARER MAKING DEPARTMENT [facility] Hemoglobin 7.8(L) 11.7 - 15.7 g/dL 06/25/2024 10:30 PM PREPARER MAKING DEPARTMENT [facility] Hematocrit 22.7(L) 35.0 - 47.0 % 06/25/2024 10:30 PM PREPARER MAKING DEPARTMENT [facility] MCV 98 78 - 100 fL 06/25/2024 10:30 PM PREPARER MAKING DEPARTMENT [facility] MCH 33.6(H) 26.5 - 33.0 pg 06/25/2024 10:30 PM PREPARER MAKING DEPARTMENT [facility] MCHC 34.4 31.5 - 36.5 g/dL 06/25/2024 10:30 PM PREPARER MAKING DEPARTMENT [facility] RDW 19.2(H) 10.0 - 15.0 % 06/25/2024 10:30 PM PREPARER MAKING DEPARTMENT [facility] Platelet Count 451(H) 150 - 450 10e3/uL 06/25/2024 10:30 PM PREPARER MAKING DEPARTMENT [facility] % Neutrophils 48 % 06/25/2024 10:30 PM PREPARER MAKING DEPARTMENT [facility] % Lymphocytes 39 % 06/25/2024 10:30 PM PREPARER MAKING DEPARTMENT [facility] % Monocytes 10 % 06/25/2024 10:30 PM PREPARER MAKING DEPARTMENT [facility] % Eosinophils 2 % 06/25/2024 10:30 PM PREPARER MAKING DEPARTMENT [facility] % Basophils 1 % 06/25/2024 10:30 PM PREPARER MAKING DEPARTMENT [facility] % Immature Granulocytes 1 % 06/25/2024 10:30 PM PREPARER MAKING DEPARTMENT [facility] NRBCs per 100 WBC 1(H) <1 /100 025 10:30 PM PREPARER MAKING DEPARTMENT [facility] Absolute Neutrophils 6.0 1.6 - 8.3 10e3/uL 06/25/2024 10:30 PM PREPARER MAKING DEPARTMENT [facility] Absolute Lymphocytes 4.8 0.8 - 5.3 10e3/uL 06/25/2024 10:30 PM PREPARER MAKING DEPARTMENT [facility] Absolute Monocytes 1.2 0.0 - 1.3 10e3/uL 06/25/2024 10:30 PM PREPARER MAKING DEPARTMENT [facility] Absolute Eosinophils 0.2 0.0 - 0.7 10e3/uL 06/25/2024 10:30 PM PREPARER MAKING DEPARTMENT [facility] Absolute Basophils 0.1 0.0 - 0.2 10e3/uL 06/25/2024 10:30 PM PREPARER MAKING DEPARTMENT [facility] Absolute Immature Granulocytes 0.1 <=0.4 10e3/uL 06/25/2024 10:30 PM PREPARER MAKING DEPARTMENT [facility] Absolute NRBCs 0.2 10e3/uL 06/25/2024 10:30 PM PREPARER MAKING DEPARTMENT [facility] Blood BLOOD SPECIMEN / Unknown IVAD (Port) / Unknown 06/25/2024 10:15 PM PREPARER MAKING DEPARTMENT 06/25/2024 10:24 PM PREPARER MAKING DEPARTMENT us Polly Naylor MD LAB - BLOOD ORDERABLES Final Res ult [facility] [place] [facility] Lab [address] [facility], [address] [place] [phone] * Troponin T, High Sensitivity (06/25/2024 10:15 PM PREPARER MAKING DEPARTMENT) [facility] Troponin T, High Sensitivity <6 <=14 ng/L 06/25/2024 10:51 PM PREPARER MAKING DEPARTMENT [facility] Comment: Either a High Sensitivity [...] IVAD (Port) / Unknown 06/25/2024 10:15 PM PREPARER MAKING DEPARTMENT 06/25/2024 10:24 PM PREPARER MAKING DEPARTMENT us Polly Naylor MD LAB - BLOOD ORDERABLES Final Res ult [facility] Core Lab [address] [facility], [address] [phone] * (ABNORMAL) Basic metabolic panel (06/25/2024 10:15 PM PREPARER MAKING DEPARTMENT) [facility] Sodium 137 135 - 145 mmol/L 06/25/2024 10:51 PM PREPARER MAKING DEPARTMENT [facility] Potassium 3.7 3.4 - 5.3 mmol/L 06/25/2024 10:51 PM PREPARER MAKING DEPARTMENT [facility] Chloride 107 98 - 107 mmol/L 06/25/2024 10:51 PM PREPARER MAKING DEPARTMENT [facility] Carbon Dioxide (CO2) 22 22 - 29 mmol/L 06/25/2024 10:51 PM PREPARER MAKING DEPARTMENT [facility] Anion Gap 8 7 - 15 mmol/L 06/25/2024 10:51 PM PREPARER MAKING DEPARTMENT [facility] Urea Nitrogen 6.7 6.0 - 20.0 mg/dL 06/25/2024 10:51 PM PREPARER MAKING DEPARTMENT [facility] Creatinine 0.69 0.51 - 0.95 mg/dL 06/25/2024 10:51 PM PREPARER MAKING DEPARTMENT [facility] GFR Estimate >90 >60 mL/min/1.7 3m2 06/25/2024 10:51 PM PREPARER MAKING DEPARTMENT [facility] Comment:eGFR calculated us2020 CKD-EPI equation. Calcium 8.7(L) 8.8 - 10.4 mg/dL 06/25/2024 10:51 PM PREPARER MAKING DEPARTMENT [facility] Glucose 87 70 - 99 mg/dL 06/25/2024 10:51 PM PREPARER MAKING DEPARTMENT [facility] Blood BLOOD SPECIMEN / Unknown IVAD (Port) / Unknown 06/25/2024 10:15 PM PREPARER MAKING DEPARTMENT 06/25/2024 10:24 PM PREPARER MAKING DEPARTMENT us Polly Naylor MD LAB - BLOOD ORDERABLES Final Res ult [facility] [place] [facility] [address] [facility], [address] [place] [address] documented in this encounter Visit Diagnoses Diagnosis Sickle cell disease with crisis (H) Hb-SS disease with crisis Chest pain, unspecified type documented in this encounter Administered Medications Inactive Administered Medications - up to 3 most recent administrations Medication Order MAR Action Action Date Dose Rate Site diphenhydrAMINE (BENADRYL) capsule 25 mg 25 mg, Oral, ONCE, On Wed06/25/24 at 2155, For 1 dose $Given 06/25/2024 10:39 PM PREPARER MAKING DEPARTMENT 25 mg heparin lock flush 100 unit/mL [...] each port lumen $Given 06/26/2024 12:55 AM PREPARER MAKING DEPARTMENT 5 mLs hydromorphone (DILAUDID) injection 2 mg 2 mg, Intravenous, EVERY 1 HOUR PRN, severe pain, moderate pain, Starting on 06/25/24 at 2151, For 3 doses $Given 06/26/2024 12:37 AM PREPARER MAKING DEPARTMENT 2 mg $Given 06/25/2024 11:42 PM PREPARER MAKING DEPARTMENT 2 mg $Given 06/25/2024 10:36 PM PREPARER MAKING DEPARTMENT 2 mg ondansetron (ZOFRAN) injection 8 mg 8 mg, Intravenous, ONCE, Administer over 2-5 Minutes, On 06/25/24 at 2155, For 1 dose $Given 06/25/2024 10:38 PM PREPARER MAKING DEPARTMENT 8 mg sodium chloride 0.9% BOLUS 1,000 mL Intravenous, 1,000 mL, ONCE, at 500 mL/hr, Administer over 2 Hours, On Wed06/25/24 at 2205, For 1 dose $New Bag 06/25/2024 10:18 PM PREPARER MAKING DEPARTMENT 1,000 mLs 500 mL/hr documented in this encounter Active and Recently Administered Medications Times are shown in PREPARER MAKING DEPARTMENT. Scheduled Medication Order 06/24/2024 06/25/2024 06/26/2024 diphenhydrAMINE (BENADRYL) capsule 25 mg (COMPLETED) 25 mg, Oral, ONCE, On Wed06/25/24 at 2155, For 1 dose 2238 ($Given [...] Intravenous, ONCE, Administer over 2-5 Minutes, On Wed06/25/24 at 2155, For 1 dose 2237 ($Given - Provider: Mely Barbour RN) sodium chloride 0.9% BOLUS 1,000 mL (COMPLETED) Intravenous, 1,000 mL, ONCE, at 500 mL/hr, Administer over 2 Hours, On Wed06/25/24 at 2205, For 1 dose 2218 ($New Bag - Provider: Mely Barbour, RN) 0033 (Stopped - Provider: Mely Barbour, RN) PRN Medication Order 06/24/2024 06/25/2024 06/26/2024 hydromorphone (DILAUDID) injection 2 mg (COMPLETED) 2 mg, Intravenous, EVERY 1 HOUR PRN, severe pain, moderate pain, Starting on 06/25/24 at 2151, For 3 doses 2236 ($Given - Provider: Mely Barbour, SOFIA)2342 ($Given - Provider: Mely Barbour, RN) 0037 ($Given - Provider: Mely Barbour, RN) documented in this encounter Care Teams Bacteriologist Soil Relationship Specialty Start Date End Date Veronica Joseph MD [address] [place] [address] PCP - General Family Medicine 06/18/24 Mor Ramsey Medical Student 04/03/24 Case Samuel MD [address] [place] [address] 484, [address] [place], [place] [id number] Assigned Pediatric Specialist Provider 05/18/24 Juhi Benson, SOFIA Specialty Grief Counselor Hematology & Oncology 05/29/24 documented as of this encounter
--- OUTSIDE RECORDS SUMMARY | 2024-07-28 20:46 | XMS_ITS | Encounter Summary ---
Author Organization [facility] Address [address] [place] [address]. [place] [address] Care Team Providers Care Chilling Hood Operator Name Role Phone Roxy Mor Unavailable Unavailable Case Samuel MD Unavailable [phone] Juhi Benson RN Unavailable Unavailable Veronica Joseph MD Primary Care Provider [phone] Encounter Details Date Type Department Care Team [...] on file Legal Sex Female 8:25 AM SOUND TESTER Gender Identity Not on file Sexual Orientation Not on file documented as of this encounter Plan of Treatment Upcoming Encounters Date Type Department Care Team (Late st Contact Info) Description 08/07/2024 7:15 AM CDT Lab [facility] Cancer [address] [phone] Case Samuel MD [address] [place] [address], ROOM [address] [address] 08/08/2024 8:00 AM CDT Appointment [facility] Advanced Treatment [address] [phone] Case Samuel MD [address] [place] [address], [address] [address] 10/30/2024 11:30 AM CDT Lab [facility] Cancer [address] [phone] Case Samuel MD [address] [place] [address], [address] [address] 10/30/2024 12:00 PM CDT Oncology Visit [facility] [address] [phone] Case Samuel MD [address] [facility] [address], [address] [place] [address] documented as of this encounter Goals Goal [...] on filedocumented in this encounter Care Teams Chilling Hood Operator Relationship Specialty Start Date End Date Veronica Joseph MD [address] [place] [address] PCP - General Family Medicine 06/18/24 Mor Ramsey Medical Student 04/03/24 Case Samuel MD [address] [facility] [address], [address] [place] [address] Assigned Pediatric Specialist Provider 05/18/24 Juhi Benson, RN Specialty Draw End Hand Hematology & Oncology 05/29/24 documented as of this encounter
--- OUTSIDE RECORDS SUMMARY | 2024-07-28 20:46 | XMS_ITS | Encounter Summary ---
Author Organization [facility] Address [address] [place] [address] Care Team Providers Care Litigation Support Analyst Name Role Phone RoxyElvirac Unavailable Unavailable Case Samuel MD Unavailable [phone] Juhi Benson RN Unavailable Unavailable Veronica Joseph MD Primary Care Provider [phone] Reason for Visit * Reason Comments Sickle Cell Pain Crisis Encounter Details Date Type Department Care Team (Late st Contact Info) Description 07/07/2024 9:13 PM CDT - 07/08/2024 12:23 AM CDT Emergency [facility] Emergency Room [address] [place] [phone] Octavio Garcia MD [facility] - [address] [address] Sandy Ortiz MD [address] [place] [address] Sickle cell pain crisis (H) Discharge Disposition: [...] on file 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 Gender Identity Not on file Sexual Orientation Not on file documented as of this encounter Last Filed Vital Signs Vital Sign Reading Time Taken Comments Blood Pressure 118/71 07/07/2024 7:15 PM CDT Pulse 88 07/08/2024 12:22 AM CDT Temperature 36.4 C (97.6 F) 07/07/2024 7:15 PM CDT Respiratory Rate 18 07/08/2024 12:22 AM CDT Oxygen Saturation 97% 07/08/2024 12:22 AM CDT Inhaled Oxygen Concentration - - Weight 52.2 kg (115 lb) 07/07/2024 7:15 PM CDT Height 154.9 cm (5' 1) 07/07/2024 7:15 PM CDT Body Mass Index 21.73 07/07/2024 7:15 PM CDT documented in this encounter Discharge Instructions * Discharge Instructions* Octavio Garcia MD - 07/07/2024 11:20 PM CDT Follow-up with your application packaging consultant. Continue to take your oral pain medication at home. We presented emerged part via severe shortness of breath, weakness, chest pain, joint pain or severe intractable pain. * Attachments The following attachments cannot be sent through Care Everywhere. * Sickle Cell Crisis ([place]) documented in this encounter Medications at Time [...] 05/01/2024 naloxone (NARCAN) 4 MG/0.1ML nasal spray [place] 1 spray (4 mg) into one nostril [...] as needed for severe pain. 45 tablet 07/04/2024 5 documented as of this encounter ED Notes * Sandy Ortiz MD - 07/07/2024 11:22 PM CDT EMERGENCY DEPARTMENT SIGN OUT NOTE ED COURSE AND MEDICAL DECISION MAKING Patient was signed out to me by Dr Octavio Garcia at 11:22 PM. Plans for discharge after her second dose of Dilaudid. In brief, Gianna Hernández is a 29 year old female who initially presented with sickle cell pain crisis Pt presents to the ED with c/o worsening pain today. Pt hx of sickle cell. Pain all over. DeniesCP or SOB. At time of sign out, disposition was pending another dose of pain medication and discharge FINAL IMPRESSION 1. Sickle cell pain crisis (H) ED MEDS Medications lactated ringers BOLUS 1,000 mL (1,000 mLs Intravenous $New Bag 07/07/242200) HYDROmorphone (DILAUDID) injection 2 mg (2 mg Intravenous $Given 07/07/242301) sodium chloride (PF) 0.9% PF flush 10-20 [...] mL (has no administration in time range) LAB Labs Ordered and Resulted from Time of ED Arrival to Time of ED Departure - No data to display Sandy Ozzy-Lidahl, MD [facility] EMERGENCY ROOM [address] [facility] [phone] Sandy Ortiz MD 07/07/24 2332 * Octavio Garcia MD - 07/07/2024 9:21 PM CDT EMERGENCY DEPARTMENT ENCOUNTER NAME: Gianna Hernández AGE: [age] year old female DATE OF : 1995 EVALUATION DATE & TIME: 07/07/2024 9:13 PM PCP: Veronica Joseph ED PROVIDER: Octavio Garcia MD FINAL IMPRESSION: 1. Sickle cell pain crisis (H) ED COURSE & MEDICAL DECISION MAKING: Pertinent Labs & Imaging studies reviewed. (See chart for details) 29 year old female presents to the Emergency Department for evaluation of sickle cell pain. Differential diagnosis considered acute chest syndrome, sickle cell crisis's, sickle cell pain, AVN, anemia, GI bleed. Triage Note: Pt presents to the ED with c/o worsening pain today. Pt hx of sickle cell. Pain all over. Denies CP or SOB. ED Course as of 07/08/24 0032 WedJul 07, 2024 215 Patient has emergency care plan. IV Dilaudid 2 mg every hour for 3 doses. IV fluids as well. Labs at discretion of the ED provider. Reviewed the chart and patient had labs performed on 07/05. Hemoglobin near baseline. Elevated reticulocyte count which is appropriate. Given patient's descriptionof full body pain after riding the roller [employer] I have lower suspicion for acute chest syndrome,AVN of the joint or any other nefarious pathology. Patient actually is well-appearing and nontoxic and appears no acute distress. She tried oral pain medication is not improved. Discussed labs were normal 2 days ago and she does not have concerning history will not obtain repeat labs. Discussed this at bedside and she agrees with this assessment. [id number] reassessed patient at bedside. Sitting comfortably in hospital bed. Playing on her phone. States her pain is currently at a 6/10. He usually walks around with a 4/10 pain. Is now requesting Benadryl. No hives, not itching, no shortness of breath or swelling. Discussed that I do not believe sheraminaires Benadryl currently and I would be concerned that this actually would accentuate the euphoria of Dilaudid. She was okay with not receiving Benadryl. Case had out to oncoming provider pending reassessment and pain control. Not Applicable Case was signed out to oncoming ED provider, Dr. Ortiz with pain control and reassessment pending. At the conclusion of the encounter I discussed the results of the tests and the disposition. The questions [...] lock flush 10 unit/mL injection 5-10 mL (5 mLs Intracatheter $Given 07/08/24 0015) heparin lock flush 100 unit/mL injection 5-10 mL (has no administration in time range) lactated ringers BOLUS 1,000 mL (0 mLs Intravenous Stopped 07/08/24 0006) HYDROmorphone (DILAUDID) injection 2 mg (2 mg Intravenous $Given 07/07/24 2359) NEW PRESCRIPTIONS STARTED AT TODAY'S ER VISIT Discharge Medication List as of 07/08/2024 12:07 AM Discharge Medication List as of 07/08/2024 12:07 AM HPI Gianna Hernández is a 29 year old female with a pertinent history of sickle cell disease who presents to this ED for evaluation of sickle cell pain crisis. Patient states she has chronic pain is usually a 4 out of 10. Today she was with a friend and went to the [employer] and went on the [place]. She believes she overdid it. Subsequently developed full body pain. Is not able to localize the pain. She took her scheduled 4 mg Dilaudid which she takes every 6 hours and this did not improve the pain. Denies melanotic stools, bright red blo od per rectum, nausea, vomiting, chest pain or shortness of breath. PHYSICAL EXAM BP 118/71 Pulse 88 Temp 97.6 ??F (36.4 ??C) Resp 18 Ht 1.549 m (5' 1) Wt 52.2 kg (115 lb) SpO2 97% BMI 21.73 kg/m?? Constitutional: Comfortable appearing. Head: Normocephalic, atraumatic, mucous membranes moist, nose normal. Neck: Supple, gross ROM intact. Eyes: Pupils mid-range, sclera white. Respiratory: Clear to auscultation bilaterally, no respiratory distress, no wheezing, speaks full sentences easily. Cardiovascular: Normal heart rate, regular rhythm, no murmurs. No lower extremity edema. GI: Soft, no tenderness to deep palpation in all quadrants. Musculoskeletal: Moving all 4 extremities intentionally and without pain. No obvious deformity. Skin: Warm, dry, no rash. Neurologic: Alert & oriented x 3, speech clear, moving all extremities spontaneously Psychiatric: Affect normal, cooperative. Octavio Garcia MD [facility] EMERGENCY ROOM [facility] [facility] [phone] BILLING: Data Category 1 Non-ED record review, if applicable. External record reviewed: Reviewed outside ED record from07/05 patient had a hemoglobin of 8.6. Appears at her baseline. No sign of bleeding. Do not believe repeatlabs necessary at this time. Clinical information was obtained from an independent historian. History was obtained from: Friend provided additional information in the HPI The following testing was considered but ultimately not selected after discussion with patient/family: CBC, BMP, reticulocyte count however this was canceled. Category 2 My independent interpretation of EKG, rhythm strip, radiology study: N/A Category 3 Discussion of management with other physician/healthcare provider/other source: N/A Risk Prescription medication was considered, but ultimately not given after discussion with patient/family: N/A Chronic conditions affecting care: Sickle cell disease Consideration of Admission/Observation: Escalation of care including admission/observation was considered given the complexity and risk of the patient's presenting complaint, exam findings, and/or their underlying comorbidities. However, ultimately I feel the patient is safe for outpatient management with close follow up. Reasoning: Work-up reassuring, does not reveal any acute life/organ threatening processes, patient's symptoms well controlled upon reevaluation, reexamination is reassuring, vitals are stable, patient agreeable with discharge, reliable for follow-up. Consider mission for intractable pain however pain was well-controlled after patient's scheduled medications and she was able to be discharged home. I, Alex Parsons, am serving as a scribe to document services personally performed by Octavio Garcia MD based on my observation and the provider's statements to me. I, Octavio Garcia MD, attest that Alex Parsons is acting in a scribe capacity, has observed my performance of the services and has documented them in accordance with my direction. Octavio Garcia MD 07/08/24 0032 * Dave Keller RN - 07/07/2024 7:16 PM CDT Pt presents to the ED with c/o worsening pain today. Pt hx of sickle cell. Pain all over. Denies CP or SOB. documented in this encounter Plan of Treatment Upcoming Encounters Date Type Department Care Team (Late st Contact Info) Description 08/07/2024 7:15 AM CDT [facility] Cancer [address] [phone] Case Samuel MD [address] [place], [place] [address], [address] [place] [address] 08/08/2024 8:00 AM CDT Appointment [facility] Advanced Treatment [address] [phone] Case Samuel MD [address] [place] [address], [address] [place] [address] 10/30/2024 11:30 AM CDT Lab [facility] Cancer [address] [phone] Case Samuel MD [address] [place] [address], [address] [address] 10/30/2024 12:00 PM CDT Oncology Visit [facility] Cancer [address] [phone] Case Samuel MD [address] [place], [place] [address], [address] [address] documented as of this encounter Goals Goal [...] port in dual implanted port, Starting on Wed07/07/24 at 2147, Flush each port lumen with the sodium chloride 0.9% flush followed by the heparin flush. MAX dose: 5 mL of heparin for each lumen heparin lock flush 10 unit/mL injection 5-10 mL 5-10 mL, Intracatheter, EVERY 24 HOURS, First dose on Wed07/07/24 at 2200, To lock each dormant port in dual implanted port. MAX: 5 mL of heparin for each lumen Check PRN heparin flush order to see when the last dose of the PRN heparin was given before administering this heparin dose. Flush with sodium chloride 0.9% followed by the heparin flush. $Given 07/08/2024 12:15 AM CDT 5 mLs heparin lock flush 100 unit/mL injection 5-10 mL 5-10 mL, Intracatheter, EVERY 28 DAYS, First dose on Wed07/07/24 at 2200, To de-access each port in dual implanted port. Flush with 10 mL NS sodium chloride 0.9% flush followed by 5 mL heparin (100 units/mL) at discharge and at least every 28 days. MAX: 5 mL per each port lumen HYDROmorphone (DILAUDID) injection 2 mg 2 mg, Intravenous, EVERY 1 HOUR PRN, moderate pain, Starting on Wed07/07/24 at 2110, For 3 doses $Given 07/07/2024 11:59 PM CDT 2 mg $Given 07/07/2024 11:02 PM CDT 2 mg $Given 07/07/2024 10:01 PM CDT 2 mg lactated ringers BOLUS 1,000 mL Intravenous, 1,000 mL, ONCE, at 500 mL/hr, Administer over 2 Hours, On Wed07/07/24 at 2130, For 1 dose $New Bag 07/07/2024 10:01 PM CDT 1,000 mLs 500 mL/hr sodium chloride (PF) 0.9% PF flush 10-20 mL 10-20 mL, Intracatheter, EVERY 1 MIN PRN, line flush, post meds or blood draw, to flush each lumen of the CVC Implanted port, Starting on Wed07/07/24 at 2147, 10 mL per port lumen post IV meds; 20 mL per port lumen post post blood draw. sodium chloride (PF) 0.9% PF flush 10-20 mL 10-20 mL, Intracatheter, EVERY 1 HOUR PRN, other, to de-access port when not in use, Starting on Wed07/07/24 at 2147, Use sodium chloride 0.9% at least daily to de-access each port and lock dormant implanted port while not in use. Flush each port access with 10 mL sodium chloride 0.9% MAX: 10 mL per each port lumen sodium chloride (PF) 0.9% PF flush 10-20 mL 10-20 mL, Intracatheter, EVERY 28 DAYS, First dose on Wed07/07/24 at 2200, To flush and lock each port in dual implanted port. Flush each port with 10 mL sodium chloride 0.9% followed by either heparin or anticoagulant citrate as ordered. Max: 10 mL per each port lumen. documented in this encounter Active and Recently Administered Medications Times are shown in CDT. Scheduled Medication Order 07/06/2024 07/07/2024 07/08/2024 heparin lock flush 10 unit/mL injection 5-10 mL 5-10 mL, Intracatheter, EVERY 24 HOURS, First dose on Wed07/07/24 at 2200, To lock each dormant port in dual implanted port. MAX: 5 mL of heparin for each lumen Check PRN heparin flush order to see when the last dose of the PRN heparin was given before administering this heparin dose. Flush with sodium chloride 0.9% followed by the heparin flush. 0015 ($Given - Provider: Bushra Enriquez RN) heparin lock flush 100 unit/mL injection 5-10 mL 5-10 mL, Intracatheter, EVERY 28 DAYS, First dose on Wed07/07/24 at 2200, To de-access each port in dual implanted port. Flush with 10 mL NS sodium chloride 0.9% flush followed by 5 mL heparin (100 units/mL) at discharge and at least every 28 days. MAX: 5 mL per each port lumen 2199 (Canceled Entry - Provider: Orders Generic Provider - Comment: Automatically canceled at discontinue of medication order) lactated ringers BOLUS 1,000 mL (COMPLETED) Intravenous, 1,000 mL, ONCE, at 500 mL/hr, Administer over 2 Hours, On Wed07/07/24 at 2130, For 1 dose 2200 ($New Bag - Provider: Bushra Enriquez RN) 0006 (Stopped - Provider: Bushra Enriquez RN) sodium chloride (PF) 0.9% PF flush 10-20 mL 10-20 mL, Intracatheter, EVERY 28 DAYS, First dose on Wed07/07/24 at 2200, To flush and lock each port in dual implanted port. Flush each port with 10 mL sodium chloride 0.9% followed by either heparin or anticoagulant citrate as ordered. Max: 10 mL per each port lumen. 0 (Canceled Entry - Provider: Orders Generic Provider - Comment: Automatically canceled at discontinue of medication order) PRN Medication Order 07/06/2024 07/07/2024 07/08/2024 heparin lock flush 10 unit/mL injection 5-10 mL 5-10 mL, Intracatheter, EVERY 1 HOUR PRN, post meds or blood draw, other, to lock each port in dual implanted port, Starting on Wed07/07/24 at 2147, Flush each port lumen with the sodium chloride 0.9% flush followed by the heparin flush. MAX dose: 5 mL of heparin for each lumen HYDROmorphone (DILAUDID) injection 2 mg (COMPLETED) 2 mg, Intravenous, EVERY 1 HOUR PRN, moderate pain, Starting on Wed07/07/24 at 2110, For 3 doses 2200 ($Given - Provider: Suha Enriquez RN)2302 ($Given - Provider: Bushra Enriquez RN)2359 ($Given - Provider: Bushra Enriquez RN) sodium chloride (PF) 0.9% PF flush 10-20 mL 10-20 mL, Intracatheter, EVERY 1 MIN PRN, line flush, post meds or blood draw, to flush each lumen of the CVC Implanted port, Starting on Wed07/07/24 at 2147, 10 mL per port lumen post IV meds; 20 mL per port lumen post post blood draw. sodium chloride (PF) 0.9% PF flush 10-20 mL 10-20 mL, Intracatheter, EVERY 1 HOUR PRN, other, to de-access port when not in use, Starting on Wed07/07/24 at 2147, Use sodium chloride 0.9% at least daily to de-access each port and lock dormant implanted port while not in use. Flush each port access with 10 mL sodium chloride 0.9% MAX: 10 mL per each port lumen documented in this encounter Care Teams Litigation Support Analyst Relationship Specialty Start Date End Date Veronica Joseph MD [address] [place] [address] PCP - General Family Medicine 06/18/24 Mor Ramsey Medical Student 04/03/24 Case Samuel MD [address] [place] [address], [address] [place] [address] Assigned Pediatric Specialist Provider 05/18/24 Juhi Benson, SOFIA Specialty Support Director Hematology & Oncology 05/29/24 documented as of this encounter
--- OUTSIDE RECORDS SUMMARY | 2024-07-28 20:47 | XMS_ITS | Encounter Summary ---
Author Organization [facility] Address [address] [place] [id number] Care Team Providers Care Chief Privacy Officer Name Role Phone R[employer]Elvirac Unavailable Unavailable Case Samuel MD Unavailable [phone] Juhi Benson RN Unavailable Unavailable Veronica Joseph MD Primary Care Provider [phone] Reason for Visit * Reason Comments Sickle Cell Pain Crisis Encounter Details Date Type Department Care Team (Late st Contact Info) Description 07/04/2024 4:28 PM CDT - 07/04/2024 8:27 PM CDT Emergency [facility] Emergency Department [address] [place] [phone] Richar Mahajan MD [address] [place] [phone] Sickle cell pain crisis (H); 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) Discharge Disposition: [...] on file 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 Gender Identity Not on file Sexual Orientation Not on file documented as of this encounter Last Filed Vital Signs Vital Sign Reading Time Taken Comments Blood Pressure 110/49 07/04/2024 4:08 PM CDT Pulse 80 07/04/2024 4:06 PM CDT Temperature 36.9 C (98.4 F) 07/04/2024 4:06 PM CDT Respiratory Rate 20 07/04/2024 4:06 PM CDT Oxygen Saturation 99% 07/04/2024 5:40 PM CDT Inhaled Oxygen Concentration - - Weight - - Height - - Body Mass Index - - documented in this encounter Discharge Instructions * Discharge Instructions* Vasiliy Da Silva - 07/04/2024 8:20 PM CDT Instructions from your doctor today: Emergency Department (ED) testing is focused on the potential causes of your symptoms that are the most dangerous possibilities, and cannot cover every possibility. Based on the evaluation, it was deemed sufficiently safe to discharge and continue management through the clinics. Thus, follow-up is very important to assess for improvement/worsening, potential further testing, and potential treatment adjustments. If you were given opioid pain medications or other medications that can make you drowsy while in the ED, you should not drive for at least several hours and not until you feel completely back to normal. Please make an appointment to follow up with: - Your Primary Care Provider in 5-7 days - If you do not have a primary care provider, you can be seen in follow-up and establish care by calling any of the clinics below: - [facility] (phone: [phone]) - Primary Care / [facility] (phone: [phone]) - Have your clinic provider review the results from today's visit with you again, including any potential follow-up or additional testing that may be needed based on the results. Occasionally, incidental findings are found on later review by radiologists that may need follow-up. Return to the Emergency Department immediately if you have worsening symptoms, or any other urgent health concerns. documented in this encounter Medications at [...] as of this encounter ED Notes * Coy Stiles RN - 07/04/2024 5:23 PM CDT Bed: [facility] Expected date: Expected time: Means of arrival: Comments: Sickle cell-CG * Richar Mahajan MD - 07/04/2024 4:07 PM CDT Images from the original note were not included. [facility] EMERGENCY DEPARTMENT ([facility]) 07/04/24 ED PROVIDER NOTE History Chief Complaint Patient presents with Sickle Cell Pain Crisis The history is provided by the patient and medical records. 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 She contacted BMT clinic in hopes of getting added on forIV fluids and pain medications, no openings available. Patient is prescribed Dilaudid 4 mg Q 4-6 hours for pain. Next appointment: 07/10/[address] Samuel EMERGENCY CARE PLAN Acute Pain Crisis Treatment: (note that Toradol [...] Zofran, Oral Benadryl for anxiety Supportive Care: Mayo Mix Alexander A, MD 06/01/2024 1:08 PM Physical Exam BP: 110/49 Pulse: 80 Temp: 98.4 ??F (36.9 ??C) Resp: 20 SpO2: (!) 80 % Physical Exam Constitutional: General: She is not in acute distress. Appearance: Normal appearance. She is not diaphoretic. HENT: Head: Atraumatic. Mouth/Throat: Mouth: Mucous membranes are moist. Eyes: General: No scleral icterus. Conjunctiva/sclera: Conjunctivae normal. Cardiovascular: Rate and Rhythm: Normal rate. Heart sounds: Normal heart sounds. Pulmonary: Effort: No respiratory distress. Breath sounds: Normal breath sounds. Abdominal: General: Abdomen is flat. Musculoskeletal: Cervical back: Neck supple. Thoracic back: Tenderness present. No bony tenderness. Right lower leg: Tenderness present. Left lower leg: Tenderness present. Skin: General: Skin is warm. Findings: No rash. Neurological: Mental Status: She is alert. ED Course, Procedures, & Data Procedures EKG Interpretation: Interpreted by Vasiliy Da Silva Time reviewed: 1730 Symptoms at time of EKG: cp Rhythm: normal sinus Rate: normal Comparison to prior: Unchanged from 06/26/2024 Clinical Impression: normal EKG Results for orders placed or performed during the hospital encounter of 07/04/24 Comprehensive metabolic panel Status: Abnormal Result Value Ref Range Sodium 139 135 - 145 mmol/L Potassium 4.6 3.4 - 5.3 mmol/L Carbon Dioxide (CO2) 22 22 - 29 mmol/L Anion Gap 8 7 - 15 mmol/L Urea Nitrogen 7.5 6.0 - 20.0 mg/dL Creatinine 0.64 0.51 - 0.95 mg/dL GFR Estimate >90 >60 mL/min/1.73m2 Calcium 9.3 8.8 - 10.4 mg/dL Chloride 109 (H) 98 - 107 mmol/L Glucose 101 (H) 70 - 99 mg/dL Alkaline Phosphatase 126 40 - 150 U/L AST 55 (H) 0 - 45 U/L ALT 49 0 - 50 U/L Protein Total 8.1 6.4 - 8.3 g/dL Albumin 4.4 3.5 - 5.2 g/dL Bilirubin Total 1.1 <=1.2 mg/dL Troponin T, High Sensitivity Status: Normal Result Value Ref Range Troponin T, High Sensitivity <6 <=14 ng/L Reticulocyte count Status: Abnormal Result Value Ref Range % Reticulocyte 18.2 (H) 0.5 - 2.0 % Absolute Reticulocyte 0.471 (H) 0.025 - 0.095 10e6/uL CBC with platelets and differential Status: Abnormal Result Value Ref Range WBC Count 7.9 4.0 - 11.0 10e3/uL RBC Count 2.59 (L) 3.80 - 5.20 10e6/uL Hemoglobin 8.6 (L) 11.7 - 15.7 g/dL Hematocrit 25.8 (L) 35.0 - 47.0 % MCV 100 78 - 100 fL MCH 33.2 (H) 26.5 - 33.0 pg MCHC 33.3 31.5 - 36.5 g/dL RDW 22.1 (H) 10.0 - 15.0 % Platelet Count 523 (H) 150 - 450 10e3/uL % Neutrophils 46 % % Lymphocytes 38 % % Monocytes 13 % % Eosinophils 1 % % Basophils 2 % % Immature Granulocytes 1 % NRBCs per 100 WBC 5 (H) <1 /100 Absolute Neutrophils 3.6 1.6 - 8.3 10e3/uL Absolute Lymphocytes 3.0 0.8 - 5.3 10e3/uL Absolute Monocytes 1.0 0.0 - 1.3 10e3/uL Absolute Eosinophils 0.1 0.0 - 0.7 10e3/uL Absolute Basophils 0.1 0.0 - 0.2 10e3/uL Absolute Immature Granulocytes 0.1 <=0.4 10e3/uL Absolute NRBCs 0.4 10e3/uL RBC and Platelet Morphology Status: Abnormal [...] mmHg Diastolic Blood Pressure mmHg Ventricular Rate 79 BPM Atrial Rate 79 BPM HI Interval 148 ms QRS Duration 74 ms QT 350 ms QTc 401 ms P [place] 63 degrees R AXIS 54 degrees T Diamondhead 32 degrees Interpretation ECG Sinus rhythm Normal ECG CBC with platelets differential Status: Abnormal Narrative The following orders were created for panel order CBC with platelets differential. Procedure Abnormality Status --------- ------ CBC with platelets and ...[[id number]] Abnormal Final result RBC and Platelet Morpho...[[id number]] Abnormal Final result Please view results for these tests on the individual orders. Medications ondansetron (ZOFRAN) injection 8 mg (8 mg Intravenous $Given 07/04/241739) lactated ringers BOLUS 1,000 mL (0 mLs Intravenous Stopped 07/04/242019) Labs Ordered and Resulted from Time of ED Arrival to Time of ED Departure RETICULOCYTE COUNT - Abnormal Result Value % Reticulocyte 18.2 (*) Absolute Reticulocyte 0.471 (*) CBC WITH PLATELETS AND DIFFERENTIAL - Abnormal WBC Count 7.9 RBC Count 2.59 (*) Hemoglobin 8.6 (*) Hematocrit 25.8 (*) MCV 100 MCH 33.2 (*) MCHC 33.3 RDW 22.1 (*) Platelet Count 523 (*) % Neutrophils 46 % Lymphocytes 38 % Monocytes 13 % Eosinophils 1 % Basophils 2 % Immature Granulocytes 1 NRBCs per 100 WBC 5 (*) Absolute Neutrophils 3.6 Absolute Lymphocytes 3.0 Absolute Monocytes 1.0 Absolute Eosinophils 0.1 Absolute Basophils 0.1 Absolute Immature Granulocytes 0.1 Absolute NRBCs 0.4 RBC AND PLATELET MORPHOLOGY [...] review of external note(s) from 1 sources (see separate area of note for details) The patient's management necessitated high risk (a parenteral controlled substance). Assessment & Plan Patient presenting with sickle cell pain crisis. Vitals in the ED reassuring. Physical exam reassuring. Initial differential diagnosis includes but not limited to sickle cell pain crisis, PE, ACS, other. Nursing notes reviewed. Patient reassuring that current symptoms are consistent with prior episodes. CBC and CMP abnormal however consistent with historical. EKG reassuring with normal sinus rhythm. Patient's pleuritic chest pain resolved with care plan medications. Patient on her fifth day of taking Eliquis twice daily following recent pulmonary emboli. Patient reports compliance with medications. In the ED, the patient's symptoms were managed with 2 mg IV Dilaudid every 1 hour for 3 doses, 1 L IV lactated Ringer's over 2 hours, p.o. Benadryl, 8 mg IV Zofran, per care plan, with improvement insymptoms upon reassessment. Prior to discharge patient's port was heparin locked. The complete clinical picture is most consistent with sickle cell pain crisis. After counseling on the diagnosis, work-up, and treatment plan, the patient was discharged to home. The patient was advised to follow-up with PCP in 5 to 7 days. The patient was advised to return to the ED if worsening symptoms, new concerning symptoms, or any urgent health concerns. Patient seen and discussed with attending physician Dr. Mahajan who agrees with my plan of care. Final diagnoses: Sickle cell pain crisis (H) Discharge Medication List as of 07/04/2024 8:21 PM -- Vasiliy Da Silva PA-C Emergency Medicine [facility] EMERGENCY DEPARTMENT 07/04/2024orsening symptoms, new symptoms, or any urgent health concerns. I have reviewed the nursing notes. I have reviewed the findings, diagnosis, plan and need for follow up with the patient. Discharge Medication List as of 07/04/2024 8:21 PM Final diagnoses: Sickle cell pain crisis (H) [facility] EMERGENCY DEPARTMENT 07/04/2024 Vasiliy Da Silva 07/04/242046 -- ED Attending Physician Attestation I Richar Mahajan MD, cared for this patient with the Advanced Practice Provider (TIFFANY). I personally provided a substantive portion of the care for this patient, including approving the care plan for the number and complexity of problems addressed and taking responsibility related to the risk ofcomplications and/or morbidity or mortality of patient management. Please see the TIFFANY's documentation for full details. Summary of HPI, PE, ED Course Patient is a 29 year old female evaluated in the emergency department for patient eval for scc sx without new sx. Exam and ED course notable for patient nontoxic without concern of acute chest. On eliquis for PE. Treeated per pain treatment protocoll. After the completion of care in the emergency department, the patient was discharged. Richar Mahajan MD Emergency Medicine This note was created at least in part by the use of [employer] voice dictation system. Inadvertent typographical errors may still exist. Richar Mahajan MD. Patient evaluated in the emergency department during the COVID-19 pandemic period. Careful attention to patients safety was addressed throughout the evaluation. Evaluation and treatment management was initiated with disposition made efficiently and appropriate as possible to minimize any risk of potential exposure to patient during this evaluation. Richar Mahajan MD 07/04/24 7554 * Juliana Brothers RN - 07/04/2024 4:07 PM CDT Presents to triage ambulatory c/o sickle cell crisis for last few days. Tried getting into infusionclinic but no availability. Reports left sided chest pain associated with recent blood clot diagnosis in left long. Endorses SOB. Rating pain 9/10. Triage Assessment (Adult) Row Name 07/04/24 7811 Triage Assessment Airway WDL WDL Respiratory WDL Respiratory WDL WDL Skin Circulation/Temperature WDL Skin Circulation/Temperature WDL WDL Cardiac WDL Cardiac WDL X;chest pain Chest Pain Assessment Chest Pain Location anterior chest, left Chest Pain Radiation back Character sharp Peripheral/Neurovascular WDL Peripheral Neurovascular WDL WDL Cognitive/Neuro/Behavioral WDL Cognitive/Neuro/Behavioral WDL WDL documented in this encounter Plan of Treatment Upcoming Encounters Date Type Department Care Team (Late st Contact Info) Description 08/07/2024 7:15 AM CDT Lab [facility] [address] [phone] Case Samuel MD [address] [place] [address], ROOM [address] [address] 08/08/2024 8:00 AM CDT Appointment [facility] [address] [phone] Case Samuel MD [address] [place] [address], RO[address] [address] 10/30/2024 11:30 AM CDT Lab [facility] [address] [phone] Case Samuel MD [address] [place], [place] [phone], RO[address] [address] 10/30/2024 12:00 PM CDT Oncology Visit [facility] [address] [phone] Case Samuel MD [address] [place] [address], RO[address] [id number] documented as of this encounter Goals Goal [...] Diagnosis Comments EKG 12-LEAD, TRACING ONLY STAT 07/04/2024 5:25 PM CDT RBC AND PLATELET MORPHOLOGY STAT 07/04/2024 5:23 PM CDT CBC WITH PLATELETS AND DIFFERENTIAL STAT 07/04/2024 5:23 PM CDT TYPE AND SCREEN, ADULT STAT 5:23 PM CDT 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) TROPONIN T, HIGH SENSITIVITY STAT 07/04/2024 5:23 PM CDT CBC WITH PLATELETS & DIFFERENTIAL STAT 07/04/2024 5:23 PM CDT RETICULOCYTE COUNT STAT 07/04/2024 5: 23 PM CDT COMPREHENSIVE METABOLIC PANEL STAT 07/04/2024 5:23 PM CDT ABO/RH TYPE AND SCREEN STAT 5:23 PM CDT 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) documented in this encounter Results * EKG 12-lead, tracing only (07/04/2024 5:25 PM CDT) Systolic Blood Pressure mmHg RADIOLOGY RESULTS Diastolic Blood Pressure mmHg RADIOLOGY RESULTS Ventricular Rate 79 BPM RAD IOLOGY RESULTS Atrial Rate 79 BPM RADIOLOG Y RESULTS HI Interval 148 ms RADIOLOG Y RESULTS QRS Duration 74 ms RADIOLO GY RESULTS QT 350 ms RADIOLOGY RESULTS QTc 401 ms RADIOLOGY RESULTS P Diamondhead 63 degrees RADIOLOGY RESULTS R AXIS 54 degrees RADIOLOGY RESULTS T [place]head 32 degrees RADIOLOGY RESULTS Interpretation ECG Sinus rhythm Normal ECG Unconfirmed report - interpretation of this ECG is computer generated - see medical record for final interpretation Confirmed by - EMERGENCY ROOM, PHYSICIAN ([id number]), photo editor Stefani Strickland ([id number]) on 07/05/2024 11:00:27 AM RADIOLOGY RESULTS 07/04/2024 5:25 PM CDT 07/05/2024 11:00 AM CDT Vasiliy Lesliemick ECG ORDERABLES Edited Result - Final RADIOLOGY RESULTS * Adult Type and Screen (07/04/2024 5:23 PM CDT) Pathologist [facility] ABO/RH(D) A POS 07/05/2024 9:25 AM CDT [facility] Antibody Screen Negative Negative 07/05/2024 9:25 AM CDT [facility] Comment:Current antibody scr een is negative. Patient has a history of antibody(ies). A delay in compatible red blood cells may occur. SPECIMEN EXPIRATION DATE [id number] 07/05/2024 9:25 AM CDT [facility] Blood BLOOD SPECIMEN / Unknown Venipuncture / Unknown 07/04/2024 5:23 PM CDT 07/05/2024 9:24 AM CDT Case Samuel MD LAB - BLOOD BANK TEST ORD ER Final Result [facility] [address] [place] [phone], [facility] * (ABNORMAL) RBC and Platelet Morphology (07/04/2024 5:23 PM CDT) RBC Morphology Confirmed RBC Indices 07/04/2024 6:08 PM CDT [facility] Platelet Assessment Automated Count Confirmed. Platelet morphology is normal. Automated Count Confirmed. Platelet morphology is normal. 07/04/2024 6:08 PM CDT [facility] Polychromasia Slight(A) None Seen 07/04/2024 6:08 PM CDT [facility] Sickle Cells Slight(A) None Seen 07/04/2024 6:08 PM CDT [facility] Target Cells Slight(A) None Seen 07/04/2024 6:08 PM CDT [facility] Blood BLOOD SPECIMEN / Unknown Venipuncture / Unknown 07/04/2024 5:23 PM CDT 07/04/2024 5:31 PM CDT us Vasiliy Da Silva LAB - BLOOD ORDERABLES Final Res ult [facility] [address] [facility], [address] [place] [phone] * (ABNORMAL) CBC with platelets and differential (07/04/2024 5:23 PM CDT) WBC Count 7.9 4.0 - 11.0 10e3/uL 07/04/2024 6:08 PM CDT [facility] RBC Count 2.59(L) 3.80 - 5.20 10e6/uL 07/04/2024 6:08 PM CDT [facility] Hemoglobin 8.6(L) 11.7 - 15.7 g/dL 07/04/2024 6:08 PM CDT [facility] Hematocrit 25.8(L) 35.0 - 47.0 % 07/04/2024 6:08 PM CDT [facility] MCV 100 78 - 100 fL 07/04/2024 6:08 PM CDT [facility] MCH 33.2(H) 26.5 - 33.0 pg 07/04/2024 6:08 PM CDT [facility] MCHC 33.3 31.5 - 36.5 g/dL 07/04/2024 6:08 PM CDT [facility] RDW 22.1(H) 10.0 - 15.0 % 07/04/2024 6:08 PM CDT [facility] Platelet Count 523(H) 150 - 450 10e3/uL 07/04/2024 6:08 PM CDT [facility] % Neutrophils 46 % 07/04/2024 6:08 PM CDT [facility] % Lymphocytes 38 % 07/04/2024 6:08 PM CDT [facility] % Monocytes 13 % 07/04/2024 6:08 PM CDT [facility] % Eosinophils 1 % 07/04/2024 6:08 PM CDT [facility] % Basophils 2 % 07/04/2024 6:08 PM CDT [facility] % Immature Granulocytes 1 % 07/04/2024 6:08 PM CDT [facility] NRBCs per 100 WBC 5(H) <1 /100 025 6:08 PM CDT [facility] Absolute Neutrophils 3.6 1.6 - 8.3 10e3/uL 07/04/2024 6:08 PM CDT [facility] Absolute Lymphocytes 3.0 0.8 - 5.3 10e3/uL 07/04/2024 6:08 PM CDT [facility] Absolute Monocytes 1.0 0.0 - 1.3 10e3/uL 07/04/2024 6:08 PM CDT [facility] Absolute Eosinophils 0.1 0.0 - 0.7 10e3/uL 07/04/2024 6:08 PM CDT [facility] Absolute Basophils 0.1 0.0 - 0.2 10e3/uL 07/04/2024 6:08 PM CDT [facility] Absolute Immature Granulocytes 0.1 <=0.4 10e3/uL 07/04/2024 6:08 PM CDT [facility] Absolute NRBCs 0.4 10e3/uL 07/04/2024 6:08 PM CDT [facility] Blood BLOOD SPECIMEN / Unknown Venipuncture / Unknown 07/04/2024 5:23 PM CDT 07/04/2024 5:31 PM CDT us Vasiliy Da Silva LAB - BLOOD ORDERABLES Final Res ult [facility] [address] [facility], [address] [place] [address] * (ABNORMAL) Reticulocyte count (07/04/2024 5:23 PM CDT) [facility] % Reticulocyte 18.2(H) 0.5 - 2.0 % 07/04/2024 5:37 PM CDT [facility] Absolute Reticulocyte 0.471(H) 0.025 - 0.095 10e6/uL 07/04/2024 5:37 PM CDT [facility] Blood BLOOD SPECIMEN / Unknown Venipuncture / Unknown 07/04/2024 5:23 PM CDT 07/04/2024 5:31 PM CDT Vasiliy [facility] LAB - BLOOD ORDERABLES Final Res ult [facility] LABORATORY [facility] [address] [facility], [address] * Troponin T, High Sensitivity (07/04/2024 5:23 PM CDT) [facility] Troponin T, High Sensitivity <6 <=14 ng/L 07/04/2024 6:00 PM CDT [facility] Comment: Either a [...] BLOOD SPECIMEN / Unknown Venipuncture / Unknown 07/04/2024 5:23 PM CDT 07/04/2024 5:31 PM CDT [employer] LAB - BLOOD ORDERABLES Final Res ult [facility] LABORATORY [facility] [address] [facility], [address] [phone], [place] * (ABNORMAL) Comprehensive metabolic panel (07/04/2024 5:23 PM CDT) Pathologist [facility] Sodium 139 135 - 145 mmol/L 07/04/2024 10:52 PM CDT [facility] Potassium 4.6 3.4 - 5.3 mmol/L 07/04/2024 10:52 PM CDT [facility] Carbon Dioxide (CO2) 22 22 - 29 mmol/L 07/04/2024 10:52 PM CDT [facility] Anion Gap 8 7 - 15 mmol/L 07/04/2024 10:52 PM CDT [facility] Urea Nitrogen 7.5 6.0 - 20.0 mg/dL 07/04/2024 10:52 PM CDT [facility] Creatinine 0.64 0.51 - 0.95 mg/dL 07/04/2024 10:52 PM CDT [facility] GFR Estimate >90 >60 mL/min/1.7 3m2 07/04/2024 10:52 PM CDT [facility] LAB[facility]ATORY Comment:eGFR calculated usin 2020 CKD-EPI equation. Calcium 9.3 8.8 - 10.4 mg/dL 07/04/2024 10:52 PM CDT [facility] Chloride 109(H) 98 - 107 mmol/L 07/04/2024 10:52 PM CDT [facility] Glucose 101(H) 70 - 99 mg/dL 07/04/2024 10:52 PM CDT [facility] Alkaline Phosphatase 126 40 - 150 U/L 07/04/2024 10:52 PM CDT [facility] AST 55(H) 0 - 45 U/L 07/04/2024 10:52 PM CDT [facility] ALT 49 0 - 50 U/L 07/04/2024 10:52 PM CDT [facility] Protein Total 8.1 6.4 - 8.3 g/dL 07/04/2024 10:52 PM CDT [facility] Albumin 4.4 3.5 - 5.2 g/dL 07/04/2024 10:52 PM CDT [facility] Bilirubin Total 1.1 <=1.2 mg/dL 07/04/2024 10:52 PM CDT [facility] Blood BLOOD SPECIMEN / Unknown Venipuncture / Unknown 07/04/2024 5:23 PM CDT 07/04/2024 5:31 PM CDT us Vasiliy Rekha LAB - BLOOD ORDERABLES Final Res ult UR LABORATORY [facility] Acute Care Lab [address] [facility], [address] [place] [address], [facility] U[facility] LABORATORY [facility] Core Lab [address] [facility], [address] [place] [address], [facility] documented in this encounter Visit Diagnoses Diagnosis 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 Flush with 10 mL NS sodium chloride 0.9% flush followed by 5 mL heparin (100 units/mL) at discharge and at least every 28 days. MAX: 5 mL per each port lumen $Given 07/04/2024 8:23 PM CDT 5 mLs hydromorphone (DILAUDID) injection 2 mg 2 mg, Intravenous, EVERY 1 HOUR PRN, shortness of breath, severe pain, up to 3 doses, Starting on Wed07/04/24 at 1705 $Given 07/04/2024 7:59 PM CDT 2 mg $Given 07/04/2024 6:48 PM CDT 2 mg $Given 07/04/2024 5:40 PM CDT 2 mg lactated ringers BOLUS 1,000 mL Intravenous, 1,000 mL, ONCE, at 500 mL/hr, Administer over 2 Hours, On Wed07/04/24 at 1710, For 1 dose $New Bag 07/04/2024 5:41 PM CDT 1,000 mLs 500 mL/hr ondansetron (ZOFRAN) injection 8 mg 8 mg, Intravenous, ONCE, Administer over 2-5 Minutes, On Wed07/04/24 at 1710, For 1 dose, May repeat in 30 minutes as needed, up to 3 doses. $Given 07/04/2024 5:40 PM CDT 8 mg documented in this encounter Active and Recently Administered Medications Due to Daylight Saving Time, this section may contain times in both STRIPPING MACHINE OPERATOR and CDT. Scheduled Medication Order 07/02/2024 07/03/2024 07/04/2024 heparin lock flush 100 unit/mL injection 5-10 mL 5-10 mL, Intracatheter, EVERY 28 DAYS, First dose on Wed07/04/24 at 2019, To de-access each port in dual implanted port. Flush with 10 mL NS sodium chloride 0.9% flush followed by 5 mL heparin (100 units/mL) at discharge and at least every 28 days. MAX: 5 mL per each port lumen 2022 ($Given - Provi nas: Danica Mccloud, SOFIA) lactated ringers BOLUS 1,000 mL (COMPLETED) Intravenous, 1,000 mL, ONCE, at 500 mL/hr, Administer over 2 Hours, On Wed07/04/24 at 1710, For 1 dose 1740 ($New Bag - Pro vider: Jemal Friend, RN)2019 (Stopped - Provider: Danica Mccloud, RN) ondansetron (ZOFRAN) injection 8 mg (COMPLETED) 8 mg, Intravenous, ONCE, Administer over 2-5 Minutes, On Wed07/04/24 at 1710, For 1 dose, May repeat in 30 minutes as needed, up to 3 doses. 1740 ($Given - Provi nas: Jemal Friend, RN) PRN Medication Order 07/02/2024 07/03/2024 07/04/2024 diphenhydrAMINE (BENADRYL) capsule 50 mg 50 mg, Oral, EVERY 6 HOURS PRN, itching, Starting on Wed07/04/24 at 1706 1740 ($Given - Provi nas: Jemal Friend, RN) hydromorphone (DILAUDID) injection 2 mg 2 mg, Intravenous, EVERY 1 HOUR PRN, shortness of breath, severe pain, up to 3 doses, Starting on Wed07/04/24 at 1705 1740 ($Given - Provi nas: Jemal Friend RN)1848 ($Given - Provider: Jemal Friend RN)1959 ($Given - Provider: Danica Mccloud RN) documented in this encounter Care Teams Chief Privacy Officer Relationship Specialty Start Date End Date Veronica Joseph MD [address] [place] [address] PCP - General Family Medicine 06/18/24 Mor Ramsey Medical Student 04/03/24 Case Samuel MD [address] [place] [address] 484, [address] [place] [address] Assigned Pediatric Specialist Provider 05/18/24 Juhi Benson, RN Specialty Debug Technician Hematology & Oncology 05/29/24 documented as of this encounter
--- OUTSIDE RECORDS SUMMARY | 2024-07-28 20:47 | XMS_ITS | Encounter Summary ---
Author Organization [facility] Address [address] [place] [address]. 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 Gender Identity Not on file Sexual Orientation Not on file documented as of this encounter Plan of Treatment Upcoming Encounters Date Type Department Care Team (Late st Contact Info) Description 08/07/2024 7:15 AM CDT Lab [facility] [address] [phone] Case Samuel MD [address] [place] [address], [address] [address] 08/08/2024 8:00 AM CDT Appointment [facility] Treatment [address] [phone] Case Samuel MD [address] [place] [address], RO[address] [address] 10/30/2024 11:30 AM CDT Lab [facility] [address] [phone] Case Samuel MD [address] [place] [address], [address] [address] 10/30/2024 12:00 PM CDT Oncology Visit [facility] [address] [phone] Case Samuel MD [address] [facility] 484, [address] [place] [address] documented as of this encounter Goals Goal [...] on filedocumented in this encounter Care Teams Brush And Broom Clipper Relationship Specialty Start Date End Date Veronica Joseph MD [address] [place] [address] PCP - General Family Medicine 06/18/24 Mor Ramsey Medical Student 04/03/24 Case Samuel MD [address] [facility] 484, [address] [place] [address] Assigned Pediatric Specialist Provider 05/18/24 Juhi Benson, RN Specialty Flight Attendant/Inflight Supervisor Hematology & Oncology 05/29/24 documented as of this encounter
--- OUTSIDE RECORDS SUMMARY | 2024-07-28 20:47 | XMS_ITS | Encounter Summary ---
Author Organization [facility] Address [address] [place] [address]. [place] [address] Care Team Providers Care Elevator Repairer Apprentice Name Role Phone RoxyElvirac Unavailable Unavailable Case Samuel MD Unavailable [phone] Juhi Benson RN Unavailable Unavailable Veronica Joseph MD Primary Care Provider [phone] Reason for Visit * Reason Comments Infusion IVF/Pain medication/ antiemetics Encounter Details Date Type Department Care Team ([facility] st Contact Info) Description 07/06/2024 9:00 AM CDT Infusion Therapy Visit [facility] [address] [place] [phone] Case Samuel MD [address] [place] [address], [address] [place], [place] [address] Sickle cell pain crisis (H) (Primary Dx) [...] on file 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 Gender Identity Not on file Sexual Orientation Not on file documented as of this encounter Patient Instructions * Patient Instructions* Sheryl Larson RN - 07/06/2024 9:00 AM CDT Contact Numbers [facility]: [phone] After Hours: [phone] Triage: [phone] Please call the [facility] Triage line if you experience a temperature greater than or equal to 100.5,shaking chills, have uncontrolled nausea, vomiting and/or diarrhea, dizziness, shortness of breath,chest pain, bleeding, unexplained bruising, or if you have any other new/concerning symptoms, questions or concerns. If it is after hours, weekends, or holidays, please call the main hospital replanting machine operator at [phone] ask to speak to the Oncology doctor signs and displays salesperson. If you are having any concerning symptoms or wish to speak to a provider before your next infusion visit, please call your healthcare translator or triage to notify them so we can adequately serve you. If you need a refill on a narcotic prescription or other medication, please call triage before yourinfusion appointment. June 2024Wednesday 1 Admission 9:28 AM Richar Mahajan MD [facility] Emergency Department (Discharge: 06/24/2024) 2 XR GENERAL XRAY 9:45 PM (20 min.) UUXR1 [facility] Imaging Admission 9:50 PM Polly Naylor MD [facility] Emergency Department (Discharge: 06/26/2024) 3 Admission 1:51 PM Esdras Markham MD [facility] Emergency Department (Discharge: 06/29/2024) XR GENERAL XRAY 2:40 PM (20 min.) UUXR1 [facility] Imaging CT CHEST PULMONARY EMBOLISM W 3:25 PM (20 min.) UUCT4 [facility] Imaging 4 US LWR EXT VENOUS DUPLEX BILAT 10:40 AM (40 min.) UUUS1 [facility] Imaging ECHO COMPLETE 1:15 PM (60 min.) UUECHIPR1 [facility] 5 6 7 8 Admission 6:18 PM Andres Tejada MD [facility] Emergency Department (Discharge: 07/01/2024) 9 Admission 5:47 PM [facility] Emergency Department (Discharge: 07/02/2024) 10 11 LAB CENTRAL 9:00 AM (15 min.) [facility] Admission 4:28 PM Richar Mahajan MD [facility] Emergency Department (Discharge: 07/04/2024) 12 Admission 6:57 PM [facility] Emergency Department (Discharge: 07/05/2024) XR GENERAL XRAY 7:05 PM (20 min.) UUXR1 [facility] Imaging 13 RED BLOOD CELL EXCHANGE 7:45 AM (200 min.) APHERESIS RN1 [facility] ONC INFUSION 3 HR (180 MIN) 9:00 AM (180 min.) ONC INFUSION NURSE [facility] 14 15 16 17 RETURN CCSL 11:15 AM (30 min.) Case Samuel MD [facility] 18 19 20 21 22 23 24 25 26 27 28 29 30 JulyWednesday 1 2 3 4 5 6 7 8 9 10 11 12 13 14 15 16 17 18 19 20 21 22 23 24 25 26 27 28 29 30 Lab Results: Recent Results (from the past 12 hours) Prepare red blood cells (unit) Collection Time: 07/05/24 11:35 PM Result Value Ref Range Blood Component Type Red Blood Cells Product Code W3164H53 Unit Status Issued Unit Number [id number] CROSSMATCH COMPATIBLE CODING SYSTEM [id number] ISSUE DATE AND TIME [id number] UNIT ABO/RH A+ UNIT TYPE ISBT 6200 Prepare red blood cells (unit) Collection Time: 07/05/24 11:35 PM Result Value Ref Range Blood Component Type Red Blood Cells Product Code X9185H54 Unit Status Issued Unit Number [id number] CROSSMATCH COMPATIBLE CODING SYSTEM [id number] ISSUE DATE AND TIME [id number] UNIT ABO/RH O+ UNIT TYPE ISBT 5100 Prepare red blood cells (unit) Collection Time: 07/05/24 11:35 PM Result Value Ref Range Blood Component Type Red Blood Cells Product Code [id number] Unit Status Issued Unit Number [id number] CROSSMATCH COMPATIBLE CODING SYSTEM [id number] ISSUE DATE AND TIME [id number] UNIT ABO/RH O+ UNIT TYPE ISBT 5100 Prepare red blood cells (unit) Collection Time: 07/05/24 11:35 PM Result Value Ref Range Blood Component Type Red Blood Cells Product Code [id number] Unit Status Issued Unit Number [id number] CROSSMATCH COMPATIBLE CODING SYSTEM [id number] ISSUE DATE AND TIME [id number] UNIT ABO/RH A+ UNIT TYPE ISBT 6200 Prepare red blood cells (unit) Collection Time: 07/05/24 11:35 PM Result Value Ref Range Blood Component Type Red Blood Cells Product Code P5388F80 Unit Status Issued Unit Number [id number] CROSSMATCH COMPATIBLE CODING SYSTEM [id number] ISSUE DATE AND TIME [id number] UNIT ABO/RH A+ UNIT TYPE ISBT 6200 Hemoglobin and hematocrit Collection Time: 07/06/24 8:49 AM Result Value Ref Range Hemoglobin 8.0 (L) 11.7 - 15.7 g/dL Hematocrit 23.4 (L) 35.0 - 47.0 % CBC with platelets and differential Collection Time: 07/06/24 9:25 AM Result Value Ref Range WBC Count 11.0 4.0 - 11.0 10e3/uL RBC Count 2.37 (L) 3.80 - 5.20 10e6/uL Hemoglobin 8.1 (L) 11.7 - 15.7 g/dL Hematocrit 23.7 (L) 35.0 - 47.0 % MCV 100 78 - 100 fL MCH 34.2 (H) 26.5 - 33.0 pg MCHC 34.2 31.5 - 36.5 g/dL RDW 19.6 (H) 10.0 - 15.0 % Platelet Count 450 150 - 450 10e3/uL % Neutrophils 49 % % Lymphocytes 35 % % Monocytes 11 % % Eosinophils 4 % % Basophils 1 % % Immature Granulocytes 1 % NRBCs per 100 WBC 3 (H) <1 /100 Absolute Neutrophils 5.4 1.6 - 8.3 10e3/uL Absolute Lymphocytes 3.8 0.8 - 5.3 10e3/uL Absolute Monocytes 1.2 0.0 - 1.3 10e3/uL Absolute Eosinophils 0.5 0.0 - 0.7 10e3/uL Absolute Basophils 0.1 0.0 - 0.2 10e3/uL Absolute Immature Granulocytes 0.1 <=0.4 10e3/uL Absolute NRBCs 0.3 10e3/uL documented in this encounter Progress Notes * Sheryl Larson RN - 07/06/2024 9:00 AM CDT Infusion Nursing Note: Gianna Hernández presents today for IVF/Pain medication/antiemetics. Patient seen by provider today: No Admissions Representative present during visit today: Not Applicable. Note: Patient reports constant non radiating sharp pain on lower back, chest and bilateral legs. States it her usually sickle cell crisis pain. Denies fever/chills. Denies shortness of breath, heart palpitation and dizziness. No new concern. Patient is currently ongoing blood exchange at Apheresis. Upon discharge patient had 3 doses of IV Dilaudid with PD 4/10. Patient knows when and where to go if symptoms persists/worsen. Intravenous Access: Left Implanted Port. Treatment Conditions: Not Applicable. Post Infusion Assessment: Patient tolerated infusion without incident. Blood return noted pre and post infusion. Site patent and intact, free from redness, edema or discomfort. No evidence of extravasations. Access discontinued per protocol. Discharge Plan: Discharge instructions reviewed with: Patient. Patient and/or family verbalized understanding of discharge instructions and all questions answered. AVS to patient via icomplyHART. Patient will return 07/10 for next appointment. Patient discharged in stable condition accompanied by: self. Departure Mode: Ambulatory. CHILO DE LA FUENTE RN documented in this encounter Plan of Treatment Upcoming Encounters Date Type Department Care Team (Late st Contact Info) Description 08/07/2024 7:15 AM CDT Lab [facility] [address] [phone] Case Samuel MD [address] [place], [place] [address], RO[address] [address] 08/08/2024 8:00 AM CDT Appointment [facility] Advanced Treatment [address] [phone] Case Samuel MD [address] [place], [place] [address], RO[address] [address] 10/30/2024 11:30 AM CDT Lab [address] [phone] Case Samuel MD [address] [place] [address], [address] [address] 10/30/2024 12:00 PM CDT Oncology Visit [facility] [address] [phone] Case Samuel MD [address] [facility] 484, [address] [place] [address] documented as of this encounter Goals Goal [...] Diagnosis Comments CBC WITH PLATELETS AND DIFFERENTIAL Routine 07/06/2024 9:25 AM CDT Sickle cell pain crisis (H) CBC WITH PLATELETS & DIFFERENTIAL Routine 07/06/2024 9:25 AM CDT Sickle cell pain crisis (H) BASIC METABOLIC PANEL Routine 07/06/2024 9:25 AM CDT Sickle cell pain crisis (H) documented in this encounter Results * (ABNORMAL) CBC with platelets and differential (07/06/2024 9:25 AM CDT) [facility] WBC Count 11.0 4.0 - 11.0 10e3/uL 07/06/2024 9:36 AM CDT [facility] RBC Count 2.37(L) 3.80 - 5.20 10e6/uL 07/06/2024 9:36 AM CDT [facility] Hemoglobin 8.1(L) 11.7 - 15.7 g/dL 07/06/2024 9:36 AM CDT [facility] Hematocrit 23.7(L) 35.0 - 47.0 % 07/06/2024 9:36 AM CDT [facility] MCV 100 78 - 100 fL 07/06/2024 9:36 AM CDT [facility] MCH 34.2(H) 26.5 - 33.0 pg 07/06/2024 9:36 AM CDT [facility] MCHC 34.2 31.5 - 36.5 g/dL 07/06/2024 9:36 AM CDT [facility] RDW 19.6(H) 10.0 - 15.0 % 07/06/2024 9:36 AM CDT [facility] Platelet Count 450 150 - 450 10e3/uL 07/06/2024 9:36 AM CDT [facility] % Neutrophils 49 % 07/06/2024 9:36 AM CDT [facility] % Lymphocytes 35 % 07/06/2024 9:36 AM CDT [facility] % Monocytes 11 % 07/06/2024 9:36 AM CDT [facility] % Eosinophils 4 % 07/06/2024 9:36 AM CDT [facility] % Basophils 1 % 07/06/2024 9:36 AM CDT [facility] % Immature Granulocytes 1 % 07/06/2024 9:36 AM CDT [facility] NRBCs per 100 WBC 3(H) <1 /100 025 9:36 AM CDT [facility] Absolute Neutrophils 5.4 1.6 - 8.3 10e3/uL 07/06/2024 9:36 AM CDT [facility] Absolute Lymphocytes 3.8 0.8 - 5.3 10e3/uL 07/06/2024 9:36 AM CDT [facility] Absolute Monocytes 1.2 0.0 - 1.3 10e3/uL 07/06/2024 9:36 AM CDT [facility] Absolute Eosinophils 0.5 0.0 - 0.7 10e3/uL 07/06/2024 9:36 AM CDT [facility] Absolute Basophils 0.1 0.0 - 0.2 10e3/uL 07/06/2024 9:36 AM CDT [facility] Absolute Immature Granulocytes 0.1 <=0.4 10e3/uL 07/06/2024 9:36 AM CDT [facility] Absolute NRBCs 0.3 10e3/uL 07/06/2024 9:36 AM CDT [facility] Blood BLOOD SPECIMEN / Unknown IVAD (Port) / Unknown 07/06/2024 9:25 AM CDT 07/06/2024 9:34 AM CDT us Case Samuel MD LAB - BLOOD ORDERABLES Fi nal Result [facility] [address] [facility] 1st [place] [address] * (ABNORMAL) Basic metabolic panel (07/06/2024 9:25 AM CDT) Sodium 137 135 - 145 mmol/L 07/06/2024 9:57 AM CDT [facility] Potassium 4.4 3.4 - 5.3 mmol/L 07/06/2024 9:57 AM CDT [facility] Chloride 106 98 - 107 mmol/L 07/06/2024 9:57 AM CDT [facility] Carbon Dioxide (CO2) 20(L) 22 - 29 mmol/L 07/06/2024 9:57 AM CDT [facility] Anion Gap 11 7 - 15 mmol/L 07/06/2024 9:57 AM CDT [facility] Urea Nitrogen 6.9 6.0 - 20.0 mg/dL 07/06/2024 9:57 AM CDT [facility] Creatinine 0.67 0.51 - 0.95 mg/dL 07/06/2024 9:57 AM CDT [facility] GFR Estimate >90 >60 mL/min/1.7 3m2 07/06/2024 9:57 AM CDT [facility] Comment:eGFR calculated usin 2020 CKD-EPI equation. Calcium 8.5(L) 8.8 - 10.4 mg/dL 07/06/2024 9:57 AM CDT [facility] Glucose 114(H) 70 - 99 mg/dL 07/06/2024 9:57 AM CDT [facility] Blood BLOOD SPECIMEN / Unknown IVAD (Port) / Unknown 07/06/2024 9:25 AM CDT 07/06/2024 9:34 AM CDT us Case Samuel MD LAB - BLOOD ORDERABLES Fi nal Result [facility] [address] [facility] 1st [place] [address] documented in this encounter Visit Diagnoses Diagnosis [...] port or lock each lumen, Starting on Citlali 07/06/24 at 1144, PORT: to de-access, instill 5 mL before PORT needle is removed and every 28 days. Apheresis: only for use when patient is NOT under care of apheresis services; after a 10 mL NS flush, lock each lumen of the catheter with 5 mL.Indications:Sickle cell pain crisis (H) $Given 07/06/2024 12:26 PM CDT 5 mLs HYDROmorphone (DILAUDID) injection 2 mg 2 mg, Intravenous, ONCE, On Citlali 07/06/24 at 0915, For 1 dose $Given 07/06/2024 9:41 AM CDT 2 mg HYDROmorphone (DILAUDID) injection 2 mg 2 mg, Intravenous, EVERY 1 HOUR PRN, moderate pain, Starting on Citlali 07/06/24 at 1105 $Given 07/06/2024 12:15 PM CDT 2 mg $Given 07/06/2024 11:10 AM CDT 2 mg lactated ringers BOLUS 1,000 mL Intravenous, 1,000 mL, ONCE, at 500 mL/hr, Administer over 2 Hours, On Citlali 07/06/24 at 0915, For 1 doseIndications:Sickle cell pain crisis (H) $New Bag 07/06/2024 9:39 AM CDT 1,000 mLs 500 mL/hr ondansetron (ZOFRAN) injection 4 mg 4 mg, Intravenous, ONCE PRN, nausea, Administer over 2-5 Minutes, Starting on Citlali 07/06/24 at 0902Indications:Sickle cell pain crisis (H) $Given 07/06/2024 9:40 AM CDT 4 mg sodium chloride (PF) 0.9% PF flush 3-20 mL 3-20 mL, Intracatheter, EVERY 1 MIN PRN, line flush, post meds or blood draw, Starting on Citlali 07/06/24 at 1144, PIV: 3 mL after each use & [...] blood draw.Indications:Sickle cell pain crisis (H) $Given 07/06/2024 12:26 PM CDT 10 mLs documented in this encounter Care Teams Elevator Repairer Apprentice Relationship Specialty Start Date End Date Veronica Joseph MD [address] [place] [address] PCP - General Family Medicine 06/18/24 Mor Ramsey Medical Student 04/03/24 Case Samuel MD [address] [place] [address], [address] [place] [address] Assigned Pediatric Specialist Provider 05/18/24 Juhi Benson, RN Specialty Paleobotanist Hematology & Oncology 05/29/24 documented as of this encounter
--- OUTSIDE RECORDS SUMMARY | 2024-07-28 20:47 | XMS_ITS | Encounter Summary ---
Author Organization [facility] Address [address] [place] [id number] Care Team Providers Care Horticulture Teacher Name Role Phone Mor Ramsey Unavailable Unavailable Case Samuel MD Unavailable [phone] Juhi Benson RN Unavailable Unavailable Veronica Joseph MD Primary Care Provider [phone] Reason for Referral * Outpatient (Routine) - Pending Review Specialty Diagnoses / Procedures Referred By Shahid pendleton Referred To Contact Procedures Red Blood Cell Exchange [address] [address] Phone: tel: fax: Referral ID Status Reason Start Date Expiration Date V isits Requested Visits Authorized [id number] Pending Review 07/06/2024 07/06/2025 1 1 Reason for Visit * Outpatient (Routine) - Closed Specialty Diagnoses / Procedures Referred By Shahid pendleton Referred To Contact Lab Diagnoses 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 Procedures RED BLOOD CELL EXCHANGE [facility] [address] [address] Phone: tel: fax: [address] [address] Phone: tel: fax: Referral ID Status Reason Start Date Expiration Date Visits Re quested Visits Authorized [id number] Closed 07/06/2024 04/25/2025 1 1 Encounter Details Date Type Department Care Team (Late st Contact Info) Description 07/06/2024 7:51 AM CDT - 07/06/2024 11:59 PM CDT Hospital Encounter [facility] [address] [place] [address] Case Samuel MD [address] [place] [address] 484, [address] [place] [address] Discharge Disposition: Home or Self Care Social [...] on file Legal Sex Female 8:25 AM LEGAL INTERN Gender Identity Not on file Sexual Orientation Not on file documented as of this encounter Last Filed Vital Signs Vital Sign Reading Time Taken Comments Blood Pressure 93/52 07/06/2024 11:01 AM CDT Pulse 92 07/06/2024 11:01 AM CDT Temperature 36.7 C (98.1 F) 07/06/2024 11:01 AM CDT Respiratory Rate 16 07/06/2024 11:01 AM CDT Oxygen Saturation - - Inhaled Oxygen Concentration - - Weight - - Height - - Body Mass Index - - documented in this encounter Discharge Instructions * Discharge Instructions* Raya Garcia RN - 07/06/2024 10:02 AM CDT Apheresis Blood Donor Center Post Instructions You may feel tired after your procedure today. Please call your doctor if you have: bleeding that doesn???t stop, fever, pain where a needle or tube (catheter) was placed, seizures, trouble breathing, red urine, nausea or vomiting, other health concerns. If your symptoms are severe, call 911. The Apheresis/Blood Donor Center is open Wednesday-Wednesday 7:30 a.m. to 5 p.m. The phone number is [phone]. A Transfusion Medicine physician can be reached after 5:00 p.m. weekdays and on weekends /Holidays by calling [phone], and asking for the physician compensation and hris analyst. Red blood cell exchange: If you received blood products (plasma or red blood cells) as part of your treatment, you need to be aware that transfusion reactions can occur up to several hours after they have been given to you. Call your physician if you experience any symptoms in the next 48 hours, including breathing problems, rash, itching, hives, nausea or vomiting, fever or chills, blood in your urine or stools, or joint pain. Please inform the Transfusion Medicine Physician by calling [phone] and asking for the physician compensation and hris analyst. documented in this encounter Medications at Time [...] 05/01/2024 naloxone (NARCAN) 4 MG/0.1ML nasal spray [place] 1 spray (4 mg) into one nostril [...] needed for severe pain. 45 tablet 07/04/2024 documented as of this encounter Procedure Notes * Emelina Rodriguez MD - 07/06/2024 3:12 PM CDTAssociated Order(s): APHERESIS RED BLOOD CELL EXCHANGE Transfusion Medicine Consultation Gianna Hernández [id number] Date of : 1995 Age: [age] year old Date of Consult: 07/05/2024 Reason for consult: Red Blood Cell Exchange (RBCX) Assessment and Plan: 29 year old female is seen for initiation of RBCX for sickle cell disease. She has a history of SCDc/b acute chest syndrome, pulmonary embolism, avascular necrosis, and strokes. The patient tolerated today's exchange with no complaints. She had minor tingling related to citrate and was relieved with Tums PO. We will continue with RBCX per her hematology team. - The plan is to perform a a series of red blood cell exchanges. The patient has ports in place that will be used for the procedure. - We will use donor red blood cell units as the exchange fluid; they will be hgb S negative, fresh,and matched for Rh and Morrill. We discussed the use of the blood products as the replacement fluid and I reviewed with her the potential risks and benefits of blood transfusion. Consent was obtained over the phone with an appropriate witness. - ACD-A will be used for anticoagulation of the apheresis equipment. History of Present Illness: Gianna Hernández is a 29 year old female who is seen for consultation for Red Blood Cell Exchangeby apheresis for sickle cell disease c/b acute chest syndrome, pulmonary embolism, avascular necrosis, and strokes. She is currently experiencing sickle cell related pain, and is otherwise well. The procedure, risks/benefits were discussed with the patient and all of her questions were addressed atthat time. Consent was obtained over the phone with an appropriate witness. Past Medical History: Past Medical History: Diagnosis Date Acute chest syndrome (H) multiple episodes, intubated once AVN of femur (H) left side Endocarditis 11/2022 culture-negative, had port-a-cath in [facility] Functional asplenia Gallstones Hb-SS disease [...] & ADENOIDECTOMY Bilateral Social History: Social History Tobacco Use Smoking status: Never Smokeless tobacco: Never Substance Use Topics Alcohol use: Not Currently Family History: Family History Problem Relation Age of Onset Sickle Cell Trait Daughter Allergies: Allergies Allergen Reactions Banana Anaphylaxis, Hives and [...] Hives Acetaminophen Hives Cashew Nut Oil Hives Medications: Current Outpatient Medications Medication Sig Dispense Refill apixaban ANTICOAGULANT (ELIQUIS) 5 MG tablet Take 2 tablets (10 mg) by mouth 2 times daily for 6 days, THEN 1 tablet (5 mg) 2 times daily. 178 tablet 0 diphenhydrAMINE (BENADRYL) 25 MG tablet [...] as needed for severe pain. 45 tablet 0 hydroxyurea (HYDREA) 500 MG capsule [...] inadequate. naloxone (NARCAN) 4 MG/0.1ML nasal spray [place] 1 spray (4 mg) into one nostril alternating nostrilsas needed for opioid reversal (for opiate overdose if not breathing and unconscious. have your family member watch video on how to use/read information sheet). every 2-3 minutes until assistance arrives 2 each 0 Current Facility-Administered Medications Medication Dose Route Frequency Provider Last Rate Last Admin calcium carbonate (TUMS) chewable tablet 1,000 mg 1,000 mg Oral Q1H PRN Lynn Aguilar MD 500 mg at 07/06/24 1113 Review of Systems: A comprehensive review of systems was performed and found to be negative except for sickle cell-related pain. Vital Signs: BP 93/52 Pulse 92 Temp 98.1 ??F (36.7 ??C) (Temporal) Resp 16 Data: ROUTINE IP LABS (Last four results) BMP Recent Labs Lab 07/06/24 0925 07/05/24200507/04/24 1723 07/02/24 1903 NA 137 137 139 137 POTASSIUM 4.4 4.4 4.6 4.7 CHLORIDE 106 107 109* 108* EVELIN 8.5* 8.8 9.3 9.4 CO2 20* 20* 22 20* BUN 6.9 6.7 7.5 10.0 CR 0.67 0.66 0.64 0.66 GLC 114* 86 101* 98 CBC Recent Labs Lab 07/06/24 1112 07/06/24 0925 07/06/24 0849 07/05/24200507/04/24 1723 07/02/24 1903 WBC -- 11.0 -- 10.1 7.9 10.1 RBC -- 2.37* -- 2.60* 2.59* 2.33* HGB 8.8* 8.1* 8.0* 8.6* 8.6* 7.5* HCT 25.5* 23.7* 23.4* 26.2* 25.8* 22.3* MCV -- 100 -- 101* 100 96 MCH -- 34.2* -- 33.1* 33.2* 32.2 MCHC -- 34.2 -- 32.8 33.3 33.6 RDW -- 19.6* -- 20.7* 22.1* 20.0* PLT -- 450 -- 509* 523* 449 INRNo lab results found in last 7 days.' RBC Count Date Value Ref Range Status 07/06/2024 2.37 (L) 3.80 - 5.20 10e6/uL Final PROCEDURE A RBC exchange was performed with 5units of RBCs (Rh and Jennifer matched, fresh, Hgb S negative). The patient's ports were used for access & ACD-A for anticoagulation. To offset the effects of the citrate, calcium gluconate was given in the return line with Tums given PO to offset tingling. The patient's vital signs were stable throughout. The procedure was well tolerated by the patient. ATTESTATION STATEMENT: I, Emelina Rodriguez MD, PhD., was available by pager during the entire procedure. I have reviewed the chart and discussed the patient and current procedure with the nursing staff. Emelina Rodriguez MD, PhD Transfusion Medicine Attending Land Surveyor, Blood Bank Laboratory Pager [phone] documented in this encounter Consult Notes * Lynn Aguilar MD - 07/05/2024 2:45 PM CDT Transfusion Medicine Consultation Gianna Hernández [id number] Date of : 1995 Age: [age] year old Date of Consult: 07/05/2024 Reason for consult: Red Blood Cell Exchange (RBCX) Assessment and Plan: 29 year old female is seen for consultation for initiation of RBCX for sickle cell disease. She hasa history of SCD c/b acute chest syndrome, pulmonary embolism, avascular necrosis, and strokes. - The plan is to perform a a series of red blood cell exchanges. The patient has ports in place that will be used for the procedure. - We will use donor red blood cell units as the exchange fluid; they will be hgb S negative, fresh,and matched for Rh and Jennifer. We discussed the use of the blood products as the replacement fluid and I reviewed with her the potential risks and benefits of blood transfusion. Consent was obtained over the phone with an appropriate witness. - ACD-A will be used for anticoagulation of the apheresis equipment. Chief Complaint: Transfusion medicine consultation. History of Present Illness: Gianna Hernández is a 29 year old female who is seen for consultation for Red Blood Cell Exchangeby apheresis for sickle cell disease c/b acute chest syndrome, pulmonary embolism, avascular necrosis, and strokes. She is currently experiencing sickle cell related pain, and is otherwise well. The procedure, risks/benefits were discussed with the patient and all of her questions were addressed atthat time. Consent was obtained over the phone with an appropriate witness. Past Medical History: Past Medical History: Diagnosis Date Acute chest syndrome (H) multiple episodes, intubated once AVN of femur (H) left side Endocarditis 11/2022 culture-negative, had port-a-cath in [facility] Functional asplenia Gallstones Hb-SS disease [...] & ADENOIDECTOMY Bilateral Social History: Social History Tobacco Use Smoking status: Never Smokeless tobacco: Never Substance Use Topics Alcohol use: Not Currently Family History: Family History Problem Relation Age of Onset Sickle Cell Trait Daughter Allergies: Allergies Allergen Reactions Banana Anaphylaxis, Hives and [...] Hives Acetaminophen Hives Cashew Nut Oil Hives Medications: Current Outpatient Medications Medication Sig Dispense Refill apixaban ANTICOAGULANT (ELIQUIS) 5 MG tablet Take 2 tablets (10 mg) by mouth 2 times daily for 6 days, THEN 1 tablet (5 mg) 2 times daily. 178 tablet 0 diphenhydrAMINE (BENADRYL) 25 MG tablet [...] as needed for severe pain. 45 tablet 0 hydroxyurea (HYDREA) 500 MG capsule Take 2 capsules (1,000 mg) by mouth 2 times daily 120 capsule 11 ibuprofen (ADVIL/MOTRIN) 200 MG tablet Take 200 mg by mouth every 6 hours as needed for pain. multivitamin, therapeutic (THERA-VIT) TABS tablet Take 1 tablet by mouth daily. 30 tablet 11 naloxone (NARCAN) 4 MG/0.1ML nasal spray [place] 1 spray (4 mg) into one nostril alternating nostrilsas needed for opioid reversal (for opiate overdose if not breathing and unconscious. have your family member watch video on how to use/read information sheet). every 2-3 minutes until assistance arrives 2 each 0 No current facility-administered medications for this encounter. Review of Systems: A comprehensive review of systems was performed and found to be negative except for sickle cell-related pain. Vital Signs: There were no vitals taken for this visit. Data: CBC RESULTS: Recent Labs Lab Test 07/04/24 1723 WBC 7.9 RBC 2.59* HGB 8.6* HCT 25.8* MCV 100 MCH 33.2* MCHC 33.3 RDW 22.1* PLT 523* All laboratory data reviewed. Lynn Aguilar MD Anatomic and Clinical Pathology Resident, PGY2 [facility] Cosigned by Emelina Rodriguez MD at 07/16/2024 8:50 PM CDT Associated attestation - Emelina Rodriguez MD - 07/16/2024 8:50 PM CDT ATTESTATION STATEMENT: I, Emelina Rodriguez MD, PhD, have reviewed the patient's pertinent lab and clinical data. I have discussed this patient with the trainee, and I agree with their assessment, as outlined in this note. Emelina Rodriguez MD, PhD Transfusion Medicine Attending Land Surveyor, Blood Bank Laboratory Pager [phone] documented in this encounter Plan of Treatment Upcoming Encounters Date Type Department Care Team (Late st Contact Info) Description 08/07/2024 7:15 AM CDT Lab [facility] [address] [phone] Case Samuel MD [address] [place] [address], [address]OM [address] [address] 08/08/2024 8:00 AM CDT Appointment [facility] [address] [phone] Case Samuel MD [address] [place] [address], [address] [address] 10/30/2024 11:30 AM CDT Lab [facility] [address] [phone] Case Samuel MD [address] [place] [address], [address] [address] 10/30/2024 12:00 PM CDT Oncology Visit [facility] [address] [phone] Case Samuel MD [address] [place] [address] 484, [address] [place] [address] documented as of this encounter Goals Goal [...] Procedure Name Priority Date/Time Associated Diagnosis Comments APHERESIS RED BLOOD CELL EXCHANGE Routine 07/06/2024 3:12 PM CDT HEMOGLOBIN S WITH REFLEX TO ACID GEL ELECTROPHORESIS Routine 07/06/2024 11:12 AM CDT HEMOGLOBIN AND HEMATOCRIT Routine 07/06/2024 11:12 AM CDT HEMOGLOBIN S WITH REFLEX TO ACID GEL ELECTROPHORESIS Routine 07/06/2024 8:49 AM CDT HEMOGLOBIN AND HEMATOCRIT Routine 07/06/2024 8:49 AM CDT documented in this encounter Results * Red Blood Cell Exchange (07/06/2024 3:12 PM CDT) Narrative Emelina Rodriguez MD - 07/06/2024 3:12 PM CDT Emelina Rodriguez MD 07/06/2024 3:12 PM Transfusion Medicine Consultation Gianna Mayberry Edgar [id number] Date of : 1995 Age: [age] year old Date of Consult: 07/05/2024 Reason for consult: Red Blood Cell Exchange (RBCX) Assessment and Plan: 29 year old female is seen for initiation of RBCX for sickle cell disease. She has a history of SCD c/b acute chest syndrome, pulmonary embolism, avascular necrosis, and strokes. The patient tolerated today's exchange with no complaints. She had minor tingling related to citrate and was relieved with Tums PO. We will continue with RBCX per her hematology team. - The plan is to perform a a series of red blood cell exchanges. The patient has ports in place that will be used for the procedure. - We will use donor red blood cell units as the exchange fluid; they will be hgb S negative, fresh, and matched for Rh and Morrill. We discussed the use of the blood products as the replacement fluid and I reviewed with her the potential risks and benefits of blood transfusion. Consent was obtained over the phone with an appropriate witness. - ACD-A will be used for anticoagulation of the apheresis equipment. History of Present Illness: Gianna Hernández is a 29 year old female who is seen for consultation for Red Blood Cell Exchange by apheresis for sickle cell disease c/b acute chest syndrome, pulmonary embolism, avascular necrosis, and strokes. She is currently experiencing sickle cell related pain, and is otherwise well. The procedure, risks/benefits were discussed with the patient and all of her questions were addressed at that time. Consent was obtained over the phone with an appropriate witness. Past Medical History: Past Medical History: Diagnosis Date Acute chest syndrome (H) multiple episodes, intubated once AVN of femur (H) left side Endocarditis 11/2022 culture-negative, had port-a-cath in [facility] Functional asplenia Gallstones Hb-SS disease [...] & ADENOIDECTOMY Bilateral Social History: Social History Tobacco Use Smoking status: Never Smokeless tobacco: Never Substance Use Topics Alcohol use: Not Currently Family History: Family History Problem Relation Age of Onset Sickle Cell Trait Daughter Allergies: Allergies Allergen Reactions Banana Anaphylaxis, Hives and [...] Hives Acetaminophen Hives Cashew Nut Oil Hives Medications: Current Outpatient Medications Medication Sig Dispense Refill apixaban ANTICOAGULANT (ELIQUIS) 5 MG tablet Take 2 tablets (10 mg) by mouth 2 times daily for 6 days, THEN 1 tablet (5 mg) 2 times daily. 178 tablet 0 diphenhydrAMINE (BENADRYL) 25 MG tablet [...] as needed for severe pain. 45 tablet 0 hydroxyurea (HYDREA) 500 MG capsule [...] inadequate. naloxone (NARCAN) 4 MG/0.1ML nasal spray [place] 1 spray (4 mg) into one nostril alternating nostrils as needed for opioid reversal (for opiate overdose if not breathing and unconscious. have your family member watch video on how to use/read information sheet). every 2-3 minutes until assistance arrives 2 each 0 Current Facility-Administered Medications Medication Dose Route Frequency Provider Last Rate Last Admin calcium carbonate (TUMS) chewable tablet 1,000 mg 1,000 mg Oral Q1H PRN Lynn Aguilar MD 500 mg at 07/06/24 1113 Review of Systems: A comprehensive review of systems was performed and found to be negative except for sickle cell-related pain. Vital Signs: BP 93/52 Pulse 92 Temp 98.1 F (36.7 C) (Temporal) Resp 16 Data: ROUTINE IP LABS (Last four results) BMP Recent Labs Lab 07/06/24 0925 07/05/24200507/04/24172207/02/24 1903 NA 137 137 139 137 POTASSIUM 4.4 4.4 4.6 4.7 CHLORIDE 106 107 109* 108* EVELIN 8.5* 8.8 9.3 9.4 CO2 20* 20* 22 20* BUN 6.9 6.7 7.5 10.0 CR 0.67 0.66 0.64 0.66 GLC 114* 86 101* 98 CBC Recent Labs Lab 07/06/24 1112 07/06/24 0925 07/06/24 0849 07/05/24200507/04/24172207/02/24 1903 WBC -- 11.0 -- 10.1 7.9 10.1 RBC -- 2.37* -- 2.60* 2.59* 2.33* HGB 8.8* 8.1* 8.0* 8.6* 8.6* 7.5* HCT 25.5* 23.7* 23.4* 26.2* 25.8* 22.3* MCV -- 100 -- 101* 100 96 MCH -- 34.2* -- 33.1* 33.2* 32.2 MCHC -- 34.2 -- 32.8 33.3 33.6 RDW -- 19.6* -- 20.7* 22.1* 20.0* PLT -- 450 -- 509* 523* 449 INRNo lab results found in last 7 days.' RBC Count Date Value Ref Range Status 07/06/2024 2.37 (L) 3.80 - 5.20 10e6/uL Final PROCEDURE A RBC exchange was performed with 5units of RBCs (Rh and Morrill matched, fresh, Hgb S negative). The patient's ports were used for access & ACD-A for anticoagulation. To offset the effects of the citrate, calcium gluconate was given in the return line with Tums given PO to offset tingling. The patient's vital signs were stable throughout. The procedure was well tolerated by the patient. ATTESTATION STATEMENT: I, Emelina Rodriguez MD, PhD., was available by pager during the entire procedure. I have reviewed the chart and discussed the patient and current procedure with the nursing staff. Emelina Rodriguez MD, PhD Transfusion Medicine Attending Land Surveyor, Blood Bank Laboratory Pager [phone] us Lynn Aguilar MD IP APHERESIS Final Result * (ABNORMAL) Hemoglobin S with Reflex to Acid Gel Electrophoresis (07/06/2024 11:12 AM CDT) Hemoglobin S Qualitative Positive( A) Negative 07/07/2024 3:18 PM CDT SPECIALTY CORE/PROT/END O Comment: Positive confirmed by acid gel electrophoresis. Positive confirmed by acid gel electrophoresis. Hemoglobin S Quantitative 16.8 % 07/07/2024 3:18 PM CDT SPECIALTY CORE/PROT/END O Blood BLOOD SPECIMEN / Unknown IVAD (Port) / Unknown 07/06/2024 11:12 AM CDT 07/06/2024 11:17 AM CDT us Lynn Aguilar MD LAB - BLOOD ORDERABLES Final Res ult [facility] SPECIALTY CORE/PROT/ENDO Specialty Core/Prot/Endo [address] [facility], Room [address] [place] [address] * (ABNORMAL) Hemoglobin and hematocrit (07/06/2024 11:12 AM CDT) Hemoglobin 8.8(L) 11.7 - 15.7 g/dL 07/06/2024 11:20 AM CDT [facility] - CORE LAB Hematocrit 25.5(L) 35.0 - 47.0 % 07/06/2024 11:20 AM CDT [facility] - CORE LAB Blood BLOOD SPECIMEN / Unknown IVAD (Port) / Unknown 07/06/2024 11:12 AM CDT 07/06/2024 11:17 AM CDT us Lynn Aguilar MD LAB - BLOOD ORDERABLES Final Res ult [facility] - CORE LAB [facility] [address] [facility] 1st [place] [address] * (ABNORMAL) Hemoglobin S with Reflex to Acid Gel Electrophoresis (07/06/2024 8:49 AM CDT) Hemoglobin S Qualitative Positive( A) Negative 07/07/2024 3:17 PM CDT SPECIALTY CORE/PROT/END O Comment: Positive confirmed by acid gel electrophoresis. Positive confirmed by acid gel electrophoresis. Hemoglobin S Quantitative 51.8 % 07/07/2024 3:17 PM CDT SPECIALTY CORE/PROT/END O Blood VENOUS BLOOD / Unknown IVAD (Port) / Unknown 07/06/2024 8:49 AM CDT 07/06/2024 9:25 AM CDT us Lynn Aguilar MD LAB - BLOOD ORDERABLES Final Res ult SPECIALTY CORE/PROT/ENDO Specialty Core/Prot/Endo [address] [facility], Room [address] * (ABNORMAL) Hemoglobin and hematocrit (07/06/2024 8:49 AM CDT) Hemoglobin 8.0(L) 11.7 - 15.7 g/dL 07/06/2024 9:27 AM CDT [facility] - CORE LAB Hematocrit 23.4(L) 35.0 - 47.0 % 07/06/2024 9:27 AM CDT [facility] - CORE LAB Blood VENOUS BLOOD / Unknown IVAD (Port) / Unknown 07/06/2024 8:49 AM CDT 07/06/2024 9:25 AM CDT us Lynn Aguilar MD LAB - BLOOD ORDERABLES Final Res ult [facility] - CORE LAB [facility] [place] [address] [facility] 1st [place] [address] documented in this encounter Visit Diagnoses Not on filedocumented in this encounter Administered Medications Inactive Administered Medications - up to 3 most recent administrations Medication Order MAR Action Action Date Dose Rate Site Anticoagulant Citrate Dextrose Formula A (Apheresis Center) Apheresis, DURING APHERESIS (FROM STOCK), Starting on Citlali 07/06/24 at 0752, For 1 dose, Ratio of 1:13 with blood(1 mL ACD-A to 13 mL blood). For Apheresis Use Only., Apheresis $Given 07/06/2024 9:42 AM CDT 262 mLs calcium carbonate (TUMS) chewable tablet 1,000 mg 1,000 mg, Oral, EVERY 1 HOUR PRN, other, for citrate toxicity symptoms (paresthesias, tingling, muscle cramps, nausea, etc.), Starting on Citlali 07/06/24 at 1028, For 6 doses, If symptoms persist, pause procedure, draw ionized calcium and magnesium levels and call provider for further instructions. Apheresis, Apheresis $Given 07/06/2024 11:13 AM CDT 500 mg $Given 07/06/2024 10:30 AM CDT 1,000 mg diphenhydrAMINE (BENADRYL) capsule 25 mg 25 mg, Oral, ONCE PRN, itching, Starting on Wed07/06/24 at 0848, For 1 dose, Apheresis $Given 07/06/2024 8:48 AM CDT 25 mg heparin Lock (1000 units/mL High concentration) 3,000 Units 3,000 Units (3 mL), Intracatheter, ONCE, On Citlali 07/06/24 at 1100, For 1 dose, POST APHERESIS LOCK OF POWERFLOW(R) Implantable Apheresis IV PORT - RIGHT Prior to blood draw remove 3 mL blood and discard from the port. Administer 3 mL max dose or the volume specific to the internal lumen size of the patient's catheter., Apheresis $Given 07/06/2024 10:42 AM CDT 1,800 Units sodium chloride (PF) 0.9% PF flush 10 mL 10 mL, Intracatheter, ONCE PRN, line flush, post meds or blood draw, POST APHERESIS and PRN for POWERFLOW(R) Implantable Apheresis IV PORT - RIGHT, Starting on Citlali 07/06/24 at 1058, For 1 dose, Apheresis $Given 07/06/2024 10:58 AM CDT 10 mLs documented in this encounter Care Teams Horticulture Teacher Relationship Specialty Start Date End Date Veronica Joseph MD [address] [place] [address] PCP - General Family Medicine 06/18/24 Mor Ramsey Medical Student 04/03/24 Case Samuel MD [address] [place] [address] 484, [address] [place] [address] Assigned Pediatric Specialist Provider 05/18/24 Juhi Benson, RN Specialty Cord Maker Hematology & Oncology 05/29/24 documented as of this encounter
--- OUTSIDE RECORDS SUMMARY | 2024-07-28 20:47 | XMS_ITS | Encounter Summary ---
Author Organization [place] Address [address] [place] [address] Care Team Providers Care Assistant Professor In Family Studies Name Role Phone RoxyElvirac Unavailable Unavailable Case Samuel MD Unavailable [phone] Juhi Benson RN Unavailable Unavailable Veronica Joseph MD Primary Care Provider [phone] Reason for Visit * Reason Comments Sickle Cell Pain Crisis Encounter Details Date Type Department Care Team ([facility] st Contact Info) Description 07/09/2024 2:34 AM CDT - 07/09/2024 5:41 AM CDT Emergency [facility] Emergency Department [address] [place] [id number] Shauna Calle DO [address] [place] [address] Sickle cell pain crisis (H) Discharge Disposition: [...] on file 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 Gender Identity Not on file Sexual Orientation Not on file documented as of this encounter Last Filed Vital Signs Vital Sign Reading Time Taken Comments Blood Pressure 104/70 07/09/2024 5:39 AM CDT Pulse 79 07/09/2024 5:39 AM CDT Temperature 36.8 C (98.3 F) 07/09/2024 5:39 AM CDT Respiratory Rate 16 07/09/2024 5:39 AM CDT Oxygen Saturation 99% 07/09/2024 5:39 AM CDT Inhaled Oxygen Concentration - - Weight - - Height - - Body Mass Index - - documented in this encounter Discharge Instructions * Discharge Instructions* Shauna Calle DO - 07/09/2024 5:14 AM CDT Return to the emergency department if you are having uncontrolled pain Or other concerns * Attachments The following attachments cannot be sent through Care Everywhere. * Sickle Cell Crisis (Tongan) documented in this encounter Medications at Time of Discharge apixaban ANTICOAGULANT (ELIQUIS) 5 MG tabletIndications: DVT-PE Treatment Take 2 tablets (10 mg) by mouth 2 times daily for 6 days, THEN 1 tablet (5 mg) 2 times daily. 178 tablet 06/29/2024 5 diphenhydrAMINE (BENADRYL) 25 MG tablet Take 1-2 [...] 05/01/2024 naloxone (NARCAN) 4 MG/0.1ML nasal spray [place] 1 spray (4 mg) into one nostril [...] of this encounter ED Notes * Shauna Calle DO - 07/09/2024 5:41 AM CDT ED Provider Note [facility] History Chief Complaint Patient presents with Sickle Cell Pain Crisis HPI Gianna Hernández is a 29 year old female with PMH of sickle cell disease and crisis presents for sickle cell pain crisis located in back and legs. She states this is the way her pain crisis typically prsent. Pain has been all day, but became more severe this evening. Last home pain meds were PO dilaudid at 6pm. She has an infusion appointment tomorrow. Denies any respiratory symptoms/chest pain, new numbness, weakness, fevers, urinary symptoms, GI symptoms, bowel/bladder incontinence, trauma,stroke symptoms. 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 Physical Exam BP: 114/78 Pulse: 91 Temp: 98.4 ??F (36.9 ??C) Resp: 16 SpO2: 98 % Physical Exam General: appears uncomfortable HENT: Normocephalic and atraumatic. Trachea midline. Normal voice. Eyes: EOMI, conjunctivae normal. Cardiovascular: Normal rate and regular rhythm. No murmur heard. Radial pulses 2+ bilaterally. Pulmonary: No respiratory distress. Normal breath sounds bilaterally. Abdominal: no distension. Abdomen is soft. There is no mass. There is no abdominal tenderness. Musculoskeletal: Moving all extremities spontaneously. No edema. No spinal tenderness or step off. Normal gait. Mild tenderness to bilateral low back musculature Skin: Warm, dry, and well perfused. Neurological: No focal deficit present. Psychiatric: The patient is awake, alert. Appropriate mood and affect. ED Course, Procedures, & Data Procedures Results for orders placed or performed during the hospital encounter of 07/09/24 Reticulocyte count Status: Abnormal Result Value Ref Range % Reticulocyte 10.5 (H) 0.5 - 2.0 % Absolute Reticulocyte 0.319 (H) 0.025 - 0.095 10e6/uL CBC with platelets and differential Status: Abnormal Result Value Ref Range WBC Count 11.9 (H) 4.0 - 11.0 10e3/uL RBC Count 3.04 (L) 3.80 - 5.20 10e6/uL Hemoglobin 9.5 (L) 11.7 - 15.7 g/dL Hematocrit 28.6 (L) 35.0 - 47.0 % MCV 94 78 - 100 fL MCH 31.3 26.5 - 33.0 pg MCHC 33.2 31.5 - 36.5 g/dL RDW 16.6 (H) 10.0 - 15.0 % Platelet Count 251 150 - 450 10e3/uL RBC and Platelet Morphology Status: Abnormal Result Value Ref Range RBC Morphology Confirmed RBC Indices Platelet Assessment Automated Count Confirmed. Platelet morphology is normal. Automated Count Confirmed. Platelet morphology is normal. Polychromasia Slight (A) None Seen Sickle Cells Slight (A) None Seen Manual Differential Status: Abnormal Result Value Ref Range % Neutrophils 21 % % Lymphocytes 63 % % Monocytes 14 % % Eosinophils 1 % % Basophils 1 % Absolute Neutrophils 2.5 1.6 - 8.3 10e3/uL Absolute Lymphocytes 7.5 (H) 0.8 - 5.3 10e3/uL Absolute Monocytes 1.7 (H) 0.0 - 1.3 10e3/uL Absolute Eosinophils 0.1 0.0 - 0.7 10e3/uL Absolute Basophils 0.1 0.0 - 0.2 10e3/uL Narrative Yuki Rome on 07/09/2024 at 5:24 AM Pt deferred 06/13/2024. Lymps high at that time CBC with platelets differential Status: Abnormal Narrative The following orders were created for panel order CBC with platelets differential. Procedure Abnormality Status --------- ------ CBC with platelets and ...[[id number]] Abnormal Final result RBC and Platelet Morpho...[[id number]] Abnormal Final result Manual Differential[[id number]] Abnormal Final result Please view results for these tests on the individual orders. Medications lactated ringers BOLUS 500 mL (0 mLs Intravenous Stopped 07/09/24 4880) ondansetron (ZOFRAN) injection 4 mg (4 mg Intravenous $Given 07/09/24 6497) hydromorphone (DILAUDID) injection 2 mg (2 mg Intravenous $Given 07/09/24 3014) diphenhydrAMINE (BENADRYL) capsule 50 mg (50 mg Oral $Given 07/09/24 2674) heparin lock flush 100 unit/mL injection 100 Units (100 Units Intravenous $Given 07/09/24 8463) Labs Ordered and Resulted from Time of ED Arrival to Time of ED Departure RETICULOCYTE COUNT - Abnormal Result Value % Reticulocyte 10.5 (*) Absolute Reticulocyte 0.319 (*) CBC WITH PLATELETS AND DIFFERENTIAL - Abnormal WBC Count 11.9 (*) RBC Count 3.04 (*) Hemoglobin 9.5 (*) Hematocrit 28.6 (*) MCV 94 MCH 31.3 MCHC 33.2 RDW 16.6 (*) Platelet Count 251 RBC AND PLATELET MORPHOLOGY - Abnormal RBC Morphology Confirmed RBC Indices Platelet Assessment Value: Automated Count Confirmed. Platelet morphology is normal. Polychromasia Slight (*) Sickle Cells Slight (*) MANUAL DIFFERENTIAL - Abnormal % Neutrophils 21 % Lymphocytes 63 % Monocytes 14 % Eosinophils 1 % Basophils 1 Absolute Neutrophils 2.5 Absolute Lymphocytes 7.5 (*) Absolute Monocytes 1.7 (*) Absolute Eosinophils 0.1 Absolute Basophils 0.1 No orders to display Critical care was [...] for details) strong consideration of a test (see separate area of note for details) that was ultimately deferred ordering and/or review of 3+ test(s) in this encounter (see separate area of note for details) independent interpretation of testing performed by another health professional (see separate area of note for details) The patient's management necessitated high risk (a decision regarding hospitalization). Assessment & Plan Presents emergency department for acute sickle cell pain crisis, which patient states is a typical presentation of her pain crises located in low back and legs. No fevers, inciting illness or trauma.No symptoms of acute chest syndrome or stroke. No concerning features requiring advanced imaging ofthe spine. Patient was provided ED care plan for sickle cell pain crisis. Lab workup without evidence of sean or aplastic crisis. After administration of pain medications, patient felt comfortable going home, and following up with her infusion clinic appointment tomorrow. She was discharged with return precautions. I have reviewed the nursing notes. I have reviewed the findings, diagnosis, plan and need for follow up with the patient. Discharge Medication List as of 07/09/2024 5:27 AM Final diagnoses: Sickle cell pain crisis (H) [facility] 07/09/2024 Shauna Calle DO 07/25/24 1459 * Kathy Shane RN - 07/09/2024 2:31 AM CDT Pt arrives to the ED with c/o sickle cell crisis that started earlier today. Pain is pronominally in the back and legs. Pt denies any chest pain, SOB, or fevers. documented in this encounter Plan of Treatment Upcoming Encounters Date Type Department Care Team (Late st Contact Info) Description 08/07/2024 7:15 AM CDT Lab [facility] [address] [phone] Case Samuel MD [address] [place] [address], [address] [place], [place] [id number] 08/08/2024 8:00 AM CDT Appointment [facility] [address] [phone] Case Samuel MD [address] [place] [address], [address] [place] [address] 10/30/2024 11:30 AM CDT Lab [facility] [address] [phone] Case Samuel MD [address] [place] [address], [address] [place], [place] [id number] 10/30/2024 12:00 PM CDT Oncology Visit [facility] [address] [phone] Case Samuel MD [address] [place] [address], [address] [place] [address] documented as of this encounter Goals Goal [...] Priority Date/Time Associated Diagnosis Comments MANUAL DIFFERENTIAL Routine 07/09/2024 2 :54 AM CDT RBC AND PLATELET MORPHOLOGY STAT 07/09/2024 2:54 AM CDT CBC WITH PLATELETS AND DIFFERENTIAL STAT 07/09/2024 2:54 AM CDT CBC WITH PLATELETS & DIFFERENTIAL STAT 07/09/2024 2:54 AM CDT RETICULOCYTE COUNT STAT 07/09/2024 2: 54 AM CDT documented in this encounter Results * (ABNORMAL) Manual Differential (07/09/2024 2:54 AM CDT) % Neutrophils 21 % JARET 07/09/2024 5:24 AM CDT [facility] % Lymphocytes 63 % JARET 07/09/2024 5:24 AM CDT [facility] % Monocytes 14 % JARET 07/09/2024 5:24 AM CDT [facility] % Eosinophils 1 % JARET 07/09/2024 5:24 AM CDT [facility] % Basophils 1 % JARET 07/09/2024 5:24 AM CDT [facility] Absolute Neutrophils 2.5 1.6 - 8.3 10e3/uL JARET 07/09/2024 5:24 AM CDT [facility] Absolute Lymphocytes 7.5(H) 0.8 - 5.3 10e3/uL JARET 07/09/2024 5:24 AM CDT [facility] Absolute Monocytes 1.7(H) 0.0 - 1.3 10e3/uL JARET 07/09/2024 5:24 AM CDT [facility] Absolute Eosinophils 0.1 0.0 - 0.7 10e3/uL JARET 07/09/2024 5:24 AM CDT [facility] Absolute Basophils 0.1 0.0 - 0.2 10e3/uL JARET 07/09/2024 5:24 AM CDT [facility] Blood BLOOD SPECIMEN / Unknown Venipuncture / Unknown 07/09/2024 2:54 AM CDT 07/09/2024 2:58 AM CDT Narrative [facility] - 07/09/2024 5:24 AM CDT Yuki Rome on 07/09/2024 at 5:24 AM Pt deferred 06/13/2024. Lymps high at that time us Shauna Calle DO LAB - BLOOD ORDERABLES Final Res ult [facility] [place] [facility] [address] [facility], Room [address] [place] [phone] * (ABNORMAL) RBC and Platelet Morphology (07/09/2024 2:54 AM CDT) [facility] RBC Morphology Confirmed RBC Indices 07/09/2024 5:21 AM CDT [facility] Platelet Assessment Automated Count Confirmed. Platelet morphology is normal. Automated Count Confirmed. Platelet morphology is normal. 07/09/2024 5:21 AM CDT [facility] Polychromasia Slight(A) None Seen 07/09/2024 5:21 AM CDT [facility] Sickle Cells Slight(A) None Seen 07/09/2024 5:21 AM CDT [facility] Blood BLOOD SPECIMEN / Unknown Venipuncture / Unknown 07/09/2024 2:54 AM CDT 07/09/2024 2:58 AM CDT Shauna Calle DO LAB - BLOOD ORDERABLES Final Res ult [facility] [place] [facility] [address] [facility], Room [address] [phone] * (ABNORMAL) CBC with platelets and differential (07/09/2024 2:54 AM CDT) WBC Count 11.9(H) 4.0 - 11.0 10e3/uL 07/09/2024 5:12 AM CDT [facility] Comment:Differential done on Albumin treated blood due to Smudge Cells. RBC Count 3.04(L) 3.80 - 5.20 10e6/uL 07/09/2024 5:12 AM CDT [facility] Hemoglobin 9.5(L) 11.7 - 15.7 g/dL 07/09/2024 5:12 AM CDT [facility] Hematocrit 28.6(L) 35.0 - 47.0 % 07/09/2024 5:12 AM CDT [facility] MCV 94 78 - 100 fL 07/09/2024 5:12 AM CDT [facility] MCH 31.3 26.5 - 33.0 pg 07/09/2024 5:12 AM CDT [facility] MCHC 33.2 31.5 - 36.5 g/dL 07/09/2024 5:12 AM CDT [facility] RDW 16.6(H) 10.0 - 15.0 % 07/09/2024 5:12 AM CDT [facility] Platelet Count 251 150 - 450 10e3/uL 07/09/2024 5:12 AM CDT [facility] Blood BLOOD SPECIMEN / Unknown Venipuncture / Unknown 07/09/2024 2:54 AM CDT 07/09/2024 2:58 AM CDT Shauna Calle DO LAB - BLOOD ORDERABLES Final Res ult [facility] [place] [facility] [address] [facility], Room [address] [phone] * (ABNORMAL) Reticulocyte count (07/09/2024 2:54 AM CDT) [facility] % Reticulocyte 10.5(H) 0.5 - 2.0 % 07/09/2024 3:27 AM CDT [facility] Comment:x2 dilution Absolute Reticulocyte 0.319(H) 0.025 - 0.095 10e6/uL 07/09/2024 3:27 AM CDT [facility] Comment:x2 dilution Blood BLOOD SPECIMEN / Unknown Venipuncture / Unknown 07/09/2024 2:54 AM CDT 07/09/2024 2:58 AM CDT Shauna Calle DO LAB - BLOOD ORDERABLES Final Res ult Performing Organization Address [facility]/State/ZIP Co de Phone Number LAB[facility]ATORY [facility] [place] [facility] [address] [facility], Room [address] [phone] documented in this encounter Visit Diagnoses Diagnosis 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 documented in this encounter Administered Medications Inactive Administered Medications - up to 3 most recent administrations Medication Order MAR Action Action Date Dose Rate Site diphenhydrAMINE (BENADRYL) capsule 50 mg 50 mg, Oral, ONCE, On 07/09/24 at 0350, For 1 dose $Given 07/09/2024 4:04 AM CDT 50 mg heparin lock flush 100 unit/mL injection 100 Units 100 Units, Intravenous, ONCE, On 07/09/24 at 0530, For 1 dose $Given 07/09/2024 5:37 AM CDT 100 Units hydromorphone (DILAUDID) injection 2 mg 2 mg, Intravenous, EVERY 1 HOUR PRN, severe pain, Starting on 07/09/24 at 0239, For 3 doses $Given 07/09/2024 4:59 AM CDT 2 mg $Given 07/09/2024 4:04 AM CDT 2 mg $Given 07/09/2024 2:58 AM CDT 2 mg lactated ringers BOLUS 500 mL Intravenous, 500 mL, ONCE, On 07/09/24 at 0240, For 1 dose $New Bag 07/09/2024 2:58 AM CDT 500 mLs ondansetron (ZOFRAN) injection 4 mg 4 mg, Intravenous, ONCE, Administer over 2-5 Minutes, On 07/09/24 at 0240, For 1 dose $Given 07/09/2024 2:57 AM CDT 4 mg documented in this encounter Active and Recently Administered Medications Times are shown in CDT. Scheduled Medication Order 07/07/2024 07/08/2024 07/09/2024 diphenhydrAMINE (BENADRYL) capsule 50 mg (COMPLETED) 50 mg, Oral, ONCE, On 07/09/24 at 0350, For 1 dose 0404 ($Given - Provi nas: Marilin Kidd RN) heparin lock flush 100 unit/mL injection 100 Units (COMPLETED) 100 Units, Intravenous, ONCE, On 07/09/24 at 0530, For 1 dose 0537 ($Given - Provi nas: Marilin Kidd RN) lactated ringers BOLUS 500 mL (COMPLETED) Intravenous, 500 mL, ONCE, On 07/09/24 at 0240, For 1 dose 0258 ($New Bag - Pro vider: Marilin Kidd RN)0400 (Stopped - Provider: Marilin Kidd RN) ondansetron (ZOFRAN) injection 4 mg (COMPLETED) 4 mg, Intravenous, ONCE, Administer over 2-5 Minutes, On 07/09/24 at 0240, For 1 dose 0257 ($Given - Provi nas: Marilin Kidd RN) PRN Medication Order 07/07/2024 07/08/2024 07/09/2024 hydromorphone (DILAUDID) injection 2 mg (COMPLETED) 2 mg, Intravenous, EVERY 1 HOUR PRN, severe pain, Starting on 07/09/24 at 0239, For 3 doses 0258 ($Given - Provi nas: Marilin Kidd RN)0404 ($Given - Provider: Marilin Kidd RN)0459 ($Given - Provider: Marilin Kidd RN) documented in this encounter Care Teams Assistant Professor In Family Studies Relationship Specialty Start Date End Date Veronica Joseph MD [address] [place] [address] PCP - General Family Medicine 06/18/24 Mor Ramsey Medical Student 04/03/24 Case Samuel MD [address] [place] [address], [address] [place] [address] Assigned Pediatric Specialist Provider 05/18/24 Juhi Benson, RN Specialty Photofinishing Laboratory Worker Hematology & Oncology 05/29/24 documented as of this encounter
--- OUTSIDE RECORDS SUMMARY | 2024-07-28 20:47 | XMS_ITS | Encounter Summary ---
Author Organization [place] Address [address] [place] [address]. 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 Gender Identity Not on file Sexual Orientation Not on file documented as of this encounter Plan of Treatment Upcoming Encounters Date Type Department Care Team (Late st Contact Info) Description 08/07/2024 7:15 AM CDT Lab [facility] [address] [phone] Case Samuel MD [address] [place] [address], [address] [address] 08/08/2024 8:00 AM CDT Appointment [facility] [address] [phone] Case Samuel MD [address] [place] [address], [address] [address] 10/30/2024 11:30 AM CDT Lab [facility] [address] [phone] Case Samuel MD [address] [place] [address], [address] [address] 10/30/2024 12:00 PM CDT Oncology Visit [facility] [address] [phone] Case Samuel MD [address] [facility] [address], [address] [place] [address] documented as of this encounter Goals Goal [...] on filedocumented in this encounter Care Teams Stocking Inspector Relationship Specialty Start Date End Date Veronica Joseph MD [address] [place] [address] PCP - General Family Medicine 06/18/24 Mor Ramsey Medical Student 04/03/24 Case Samuel MD [address] [facility] 484, [address] [place] [address] Assigned Pediatric Specialist Provider 05/18/24 Juhi Benson, RN Specialty Dice Table Operator Hematology & Oncology 05/29/24 documented as of this encounter
--- OUTSIDE RECORDS SUMMARY | 2024-07-28 20:47 | XMS_ITS | Encounter Summary ---
Author Organization [facility] Address [address] [place] [address]. [place] [address] Care Team Providers Care Project Coordinator Rn Name Role Phone RoxyElvirac Unavailable Unavailable Case Samuel MD Unavailable [phone] Juhi Benson RN Unavailable Unavailable Veronica Joseph MD Primary Care Provider [phone] Reason for Visit * Reason Comments Sickle Cell Pain Crisis Encounter Details Date Type Department Care Team ([facility] st Contact Info) Description 07/05/2024 6:57 PM CDT - 07/05/2024 10:36 PM CDT Emergency [facility] Emergency Department [address] [place] [phone] Vasiliy Lyle MD [address] [place] [address] Sickle cell disease with crisis (H) Discharge [...] on file Legal Sex Female 8:25 AM KNIFER UP Gender Identity Not on file Sexual Orientation Not on file documented as of this encounter Last Filed Vital Signs Vital Sign Reading Time Taken Comments Blood Pressure 122/80 07/05/2024 6:55 PM CDT Pulse 93 07/05/2024 6:55 PM CDT Temperature 37.1 C (98.8 F) 07/05/2024 6:55 PM CDT Respiratory Rate 16 07/05/2024 6:55 PM CDT Oxygen Saturation 98% 07/05/2024 6:55 PM CDT Inhaled Oxygen Concentration - - Weight 52.2 kg (115 lb) 07/05/2024 6:55 PM CDT Height 154.9 cm (5' 1) 07/05/2024 6:55 PM CDT Body Mass Index 21.73 07/05/2024 6:55 PM CDT documented in this encounter Discharge Instructions * Discharge Instructions* Vasiliy Lyle MD - 07/05/2024 10:16 PM CDT Continue your home pain regimen. Follow up at your scheduled exchange transfusion tomorrow. * Attachments The following attachments cannot be [...] 05/01/2024 naloxone (NARCAN) 4 MG/0.1ML nasal spray Delta 1 spray (4 mg) into one nostril [...] tablet 07/04/2024 documented as of this encounter ED Notes * Vasiliy Lyle MD - 07/05/2024 7:00 PM CDT ED Provider Note [facility] History Chief Complaint Patient presents with Sickle Cell Pain Crisis HPI Gianna Hernández is a 29 year old female PMH of acute chest syndrome, opioid dependence, avascular necrosis, sickle cell pain crisis, PE who presents to the ER for evaluation of sickle cell pain crisis. Pt states that she is in a sickle cell crisis and has been in this flare for 2-3 days. She has her first transfusion tommorow here. Her pain is in her loc back and legs, some chest pain but does not feel like acute chest syndrome. No abdominal pain. Some nausea but no vomiting. Pt states that she has a slight headache. She denies, cough, sore throat, ear pain. She has no problems walking. She washere yesterday and left with relief, this morning tried to go to sickle cell clinic but they were full so she came here looking for pain control. She has had a L hip surgery for AVN in 2018 as well as a knee surgery. Patient was in the ER on 07/04 for sickle cell pain. Pt symptoms managed with her care plan. 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 Physical Exam BP: 122/80 Pulse: 93 Temp: 98.8 ??F (37.1 ??C) Resp: 16 [...] breath sounds. Abdominal: General: Abdomen is flat. Tenderness: There is no abdominal tenderness. Musculoskeletal: General: No swelling. Normal range of motion. Cervical back: Neck supple. Skin: General: Skin is warm. Findings: No rash. Neurological: General: No focal deficit present. Mental Status: She is alert and oriented to person, place, and time. Motor: No weakness. Psychiatric: Mood and Affect: Mood normal. ED Course, Procedures, & Data Procedures Results for orders placed or performed during the hospital encounter of 07/05/24 XR Chest 2 Views Status: None Narrative EXAM: XR CHEST 2 VIEWS LOCATION: [facility] DATE: 07/05/2024 INDICATION: chest pain and SCC, r o acute chest COMPARISON: Chest radiograph and CTA chest 06/26/2024. Impression IMPRESSION: Bilateral chest ports remains in place. Heart size and pulmonary vascularity are normal. There are some new or increased nodular opacities within the bilateral upper lungs. Some additional scattered nodular opacities are not significantly changed. No new focal consolidation, pleural effusion, or pneumothorax. Basic metabolic panel Status: Abnormal (Preliminary result) Result Value Ref Range Sodium 137 135 - 145 mmol/L Potassium 4.4 3.4 - 5.3 mmol/L Chloride 107 98 - 107 mmol/L Carbon Dioxide (CO2) 20 (L) 22 - 29 mmol/L Anion Gap 10 7 - 15 mmol/L Urea Nitrogen 6.7 6.0 - 20.0 mg/dL Creatinine 0.66 0.51 - 0.95 mg/dL GFR Estimate >90 >60 mL/min/1.73m2 Calcium Glucose 86 70 - 99 mg/dL Reticulocyte count Status: Abnormal Result Value Ref Range % Reticulocyte 18.4 (H) 0.5 - 2.0 % Absolute Reticulocyte 0.478 (H) 0.025 - 0.095 10e6/uL CBC with platelets and differential Status: Abnormal Result Value Ref Range WBC Count 10.1 4.0 - 11.0 10e3/uL RBC Count 2.60 (L) 3.80 - 5.20 10e6/uL Hemoglobin 8.6 (L) 11.7 - 15.7 g/dL Hematocrit 26.2 (L) 35.0 - 47.0 % MCV 101 (H) 78 - 100 fL MCH 33.1 (H) 26.5 - 33.0 pg MCHC 32.8 31.5 - 36.5 g/dL RDW 20.7 (H) 10.0 - 15.0 % Platelet Count 509 (H) 150 - 450 10e3/uL % Neutrophils 40 % % Lymphocytes 44 % % Monocytes 11 % % Eosinophils 2 % % Basophils 1 % % Immature Granulocytes 1 % NRBCs per 100 WBC 4 (H) <1 /100 Absolute Neutrophils 4.1 1.6 - 8.3 10e3/uL Absolute Lymphocytes 4.5 0.8 - 5.3 10e3/uL Absolute Monocytes 1.2 0.0 - 1.3 10e3/uL Absolute Eosinophils 0.2 0.0 - 0.7 10e3/uL Absolute Basophils 0.1 0.0 - 0.2 10e3/uL Absolute Immature Granulocytes 0.1 <=0.4 10e3/uL Absolute NRBCs 0.4 10e3/uL CBC with platelets differential Status: Abnormal Narrative The following orders were created for panel order CBC with platelets differential. Procedure Abnormality Status --------- ------ CBC with platelets and ...[[id number]] Abnormal Final result Please view results for these tests on the individual orders. Medications hydromorphone (DILAUDID) injection 2 mg (2 mg Intravenous $Given 07/05/242001) lactated ringers BOLUS 1,000 mL (0 mLs Intravenous Stopped 07/05/242207) ondansetron (ZOFRAN) injection 8 mg (8 mg Intravenous $Given 07/05/242001) diphenhydrAMINE (BENADRYL) capsule 25 mg (25 mg Oral $Given 07/05/242001) hydromorphone (DILAUDID) injection 2 mg (2 mg Intravenous $Given 07/05/242110) hydromorphone (DILAUDID) injection 2 mg (2 mg Intravenous $Given 07/05/242208) Labs Ordered and Resulted from Time of ED Arrival to Time of ED Departure BASIC METABOLIC PANEL - Abnormal Result Value Sodium 137 Potassium 4.4 Chloride 107 Carbon Dioxide (CO2) 20 (*) Anion Gap 10 Urea Nitrogen 6.7 Creatinine 0.66 GFR Estimate >90 Calcium Glucose 86 RETICULOCYTE COUNT - Abnormal % Reticulocyte 18.4 (*) Absolute Reticulocyte 0.478 (*) CBC WITH PLATELETS AND DIFFERENTIAL - Abnormal WBC Count 10.1 RBC Count 2.60 (*) Hemoglobin 8.6 (*) Hematocrit 26.2 (*) MCV 101 (*) MCH 33.1 (*) MCHC 32.8 RDW 20.7 (*) Platelet Count 509 (*) % Neutrophils 40 % Lymphocytes 44 % Monocytes 11 % Eosinophils 2 % Basophils 1 % Immature Granulocytes 1 NRBCs per 100 WBC 4 (*) Absolute Neutrophils 4.1 Absolute Lymphocytes 4.5 Absolute Monocytes 1.2 Absolute Eosinophils 0.2 Absolute Basophils 0.1 Absolute Immature Granulocytes 0.1 Absolute NRBCs 0.4 XR Chest 2 Views Final Result IMPRESSION: Bilateral chest ports remains in place. Heart size and pulmonary vascularity are normal. There are some new or increased nodular opacities within the bilateral upper lungs. Some additional scattered nodular opacities are not significantly changed. No new focal consolidation, pleural effusion, or pneumothorax. Critical care was not performed. Medical Decision Making The patient's presentation was of high complexity (a chronic illness severe exacerbation, progression, or side effect of treatment). The patient's evaluation involved: ordering and/or review of 3+ test(s) in this encounter (see separate area of note for details) The patient's management necessitated high risk (a parenteral controlled substance). Assessment & Plan 29 yo female here with low back and bilateral lower extremity pain typical of her sickle cell crises in the past. This episode started 4 days ago and she has been trying to treat it at home but had to come to the ED yesterday and again today. She is set up for an exchange transfusion tomorrow. Labs, XR and meds from her care plan ordered. Labs show Hgb 8.6, % retic 18.4, otherwise relatively unremarkable. CXR shows: Bilateral chest ports remains in place. Heart size and pulmonary vascularity are normal. There are some new or increased nodular opacities within the bilateral upper lungs. Some additional scattered nodular opacities are not significantly changed. No new focal consolidation, pleural effusion, or pneumothorax. Her pain improved to a 4/10 which she states she can handle and wants to go home. She will be discharged to home with follow up tomorrow for her scheduled exchange transfusion. I have reviewed the nursing notes. I have reviewed the findings, diagnosis, plan and need for follow up with the patient. New Prescriptions No medications on file Final diagnoses: Sickle cell disease with crisis (H) I, Tatiana Wilkinson, am serving as a trained medical assembler to document services personally performed by Vasiliy Lyle MD, based on the provider's statements to me. I, Vasiliy Lyle MD, was physically present and have reviewed and verified the accuracy of this note documented by Tatiana Wilkinson. Vasiliy Lyle MD [facility] EMERGENCY [facility]PARTMENT 07/05/2024 Vasiliy Lyle MD 07/05/241 * Manan Alva RN - 07/05/2024 6:56 PM CDT Triage Assessment & Note: BP 122/80 Pulse 93 Temp 98.8 ??F (37.1 ??C) (Oral) Resp 16 Ht 1.549 m (5' 1) Wt 52.2 kg (115 lb) SpO2 98% BMI 21.73 kg/m?? Patient presents with: C/o sickle cell pain in her back, chest and legs. Home Treatments/Remedies: Prescribed meds Febrile / Afebrile? Afebrile Duration of C/o: 2 days Manan Alva RN July 05, 2024 Triage Assessment (Adult) Row Name 07/05/24 0426 Triage Assessment Airway WDL WDL Respiratory WDL Respiratory WDL WDL Cardiac WDL Cardiac WDL WDL documented in this encounter Plan of Treatment Upcoming Encounters Date Type Department Care Team (Late st Contact Info) Description 08/07/2024 7:[address] [facility] [address] [place] [address] Case Samuel MD [address] [place] [address], [address] [place] [address] 08/08/2024 8:[address] [facility] [address] [place] [phone] Case Samuel MD [address] [place] [address], [address] [place], [place] [phone] 10/30/2024 11:[address] [facility] [address] [place] [phone] Case Samuel MD [address] [facility] [address], [address] [place] [address] 10/30/2024 12:00 PM CDT Oncology Visit [facility] [address] [place] [phone] Case Samuel MD [address] [facility] [address], [address] [place] [address] documented as of this encounter Goals Goal [...] Procedure Name Priority Date/Time Associated Diagnosis Comments PREPARE RED BLOOD CELLS (UNIT) Routine 07/05/2024 11:35 PM CDT PREPARE RED BLOOD CELLS (UNIT) Routine 07/05/2024 11:35 PM CDT PREPARE RED BLOOD CELLS (UNIT) Routine 07/05/2024 11:35 PM CDT PREPARE RED BLOOD CELLS (UNIT) Routine 07/05/2024 11:35 PM CDT PREPARE RED BLOOD CELLS (UNIT) Routine 07/05/2024 11:35 PM CDT CBC WITH PLATELETS AND DIFFERENTIAL STAT 07/05/2024 8:06 PM CDT CBC WITH PLATELETS & DIFFERENTIAL STAT 07/05/2024 8:06 PM CDT RETICULOCYTE COUNT STAT 07/05/2024 8: 06 PM CDT BASIC METABOLIC PANEL STAT 07/05/2024 8:06 PM CDT XR CHEST 2 VIEWS STAT 07/05/2024 7:33 PM CDT documented in this encounter Results * Prepare red blood cells (unit) (07/05/2024 11:35 PM CDT) Blood Component Type Red Blood Cells [facility] Product Code C7042U12 [facility] Unit Status Transfused [facility] Unit Number [id number] U[facility] B LOOD BANK CROSSMATCH COMPATIBLE [facility] B[facility] CODING SYSTEM [id number] U[facility] BLO OD BANK ISSUE DATE AND TIME [id number] [facility] UNIT ABO/RH A+ [facility] UNIT TYPE ISBT 6200 [facility] 07/05/2024 11:3 5 PM CDT us Doctor Unknown BLOOD BANK PRODUCT ORDERABLES Final Result [facility] [address] [place] [address], [facility] * Prepare red blood cells (unit) (07/05/2024 11:35 PM CDT) Blood Component Type Red Blood Cells [facility] Product Code F8968T29 [facility] Unit Status Transfused [facility] Unit Number [id number] UU B LOOD BANK CROSSMATCH COMPATIBLE UU BLOOD BANK CODING SYSTEM [id number] UU BLO OD BANK ISSUE DATE AND TIME [id number] [facility]LO[facility] UNIT ABO/RH A+ [facility] UNIT TYPE ISBT 6200 [facility] 07/05/2024 11:3 5 PM CDT Doctor Unknown BLOOD BANK PRODUCT ORDERABLES Final Result Performing Organization Address [facility] de Phone Number [facility] [address] * Prepare red blood cells (unit) (07/05/2024 11:35 PM CDT) Blood Component Type Red Blood Cells [facility] Product Code P6826C43 [facility] Unit Status Transfused [facility] Unit Number [id number] UU B LOOD BANK CROSSMATCH COMPATIBLE [facility] BLOOD BANK CODING SYSTEM [id number] UU BLO OD BANK ISSUE DATE AND TIME [id number] [facility] BLOOD BANK UNIT ABO/RH O+ [facility] UNIT TYPE ISBT 5100 [facility]OD [facility]ANK 07/05/2024 11:3 5 PM CDT us Doctor Unknown BLOOD BANK PRODUCT ORDERABLES Final Result Performing Organization Address [facility] de Phone Number [facility] [address] * Prepare red blood cells (unit) (07/05/2024 11:35 PM CDT) Blood Component Type Red Blood Cells [facility] Product Code [id number] [facility] Unit Status Transfused [facility] Unit Number [id number] U[facility] B LOOD BANK CROSSMATCH COMPATIBLE [facility] BLOOD BANK CODING SYSTEM [id number] UU BLO OD BANK ISSUE DATE AND TIME [id number] [facility] BLOOD BANK UNIT ABO/RH O+ [facility] B[facility] UNIT TYPE ISBT 5100 [facility] 07/05/2024 11:3 5 PM CDT Doctor Unknown BLOOD BANK PRODUCT ORDERABLES Final Result [facility] [address] [place] [address], [place] * Prepare red blood cells (unit) (07/05/2024 11:35 PM CDT) Blood Component Type Red Blood Cells [facility] Product Code Q9719L11 [facility] Unit Status Transfused [facility] Unit Number [id number] UU B LOOD BANK CROSSMATCH COMPATIBLE [facility]U BLOOD BANK CODING SYSTEM [id number] UU BLO OD BANK ISSUE DATE AND TIME [id number] [facility] BLOOD BANK UNIT ABO/RH A+ [facility] UNIT TYPE ISBT 6200 [facility]ANK 07/05/2024 11:3 5 PM CDT Doctor Unknown BLOOD BANK PRODUCT ORDERABLES Final Result Performing Organization Address City/[facility] Co de Phone Number [facility] [address] [place] [address], [place] * (ABNORMAL) CBC with platelets and differential (07/05/2024 8:06 PM CDT) WBC Count 10.1 4.0 - 11.0 10e3/uL 07/05/2024 8:31 PM CDT [facility] RBC Count 2.60(L) 3.80 - 5.20 10e6/uL 07/05/2024 8:31 PM CDT [facility] Hemoglobin 8.6(L) 11.7 - 15.7 g/dL 07/05/2024 8:31 PM CDT [facility] Hematocrit 26.2(L) 35.0 - 47.0 % 07/05/2024 8:31 PM CDT [facility] MCV 101(H) 78 - 100 fL 07/05/2024 8:31 PM CDT [facility] MCH 33.1(H) 26.5 - 33.0 pg 07/05/2024 8:31 PM CDT [facility] MCHC 32.8 31.5 - 36.5 g/dL 07/05/2024 8:31 PM CDT [facility] RDW 20.7(H) 10.0 - 15.0 % 07/05/2024 8:31 PM CDT [facility] Platelet Count 509(H) 150 - 450 10e3/uL 07/05/2024 8:31 PM CDT [facility] % Neutrophils 40 % 07/05/2024 8:31 PM CDT [facility] % Lymphocytes 44 % 07/05/2024 8:31 PM CDT [facility] % Monocytes 11 % 07/05/2024 8:31 PM CDT [facility] % Eosinophils 2 % 07/05/2024 8:31 PM CDT [facility] % Basophils 1 % 07/05/2024 8:31 PM CDT [facility] % Immature Granulocytes 1 % 07/05/2024 8:31 PM CDT [facility] NRBCs per 100 WBC 4(H) <1 /100 025 8:31 PM CDT [facility] Absolute Neutrophils 4.1 1.6 - 8.3 10e3/uL 07/05/2024 8:31 PM CDT [facility] Absolute Lymphocytes 4.5 0.8 - 5.3 10e3/uL 07/05/2024 8:31 PM CDT [facility] Absolute Monocytes 1.2 0.0 - 1.3 10e3/uL 07/05/2024 8:31 PM CDT [facility] Absolute Eosinophils 0.2 0.0 - 0.7 10e3/uL 07/05/2024 8:31 PM CDT [facility] Absolute Basophils 0.1 0.0 - 0.2 10e3/uL 07/05/2024 8:31 PM CDT [facility] Absolute Immature Granulocytes 0.1 <=0.4 10e3/uL 07/05/2024 8:31 PM CDT [facility] Absolute NRBCs 0.4 10e3/uL 07/05/2024 8:31 PM CDT [facility] Blood BLOOD SPECIMEN / Unknown Venipuncture / Unknown 07/05/2024 8:06 PM CDT 07/05/2024 8:19 PM CDT us Vasiliy Lyle MD LAB - BLOOD ORDERABLES Final Result Performing Organization Address City/[facility]/ZIP Co de Phone Number [facility] [address] [facility], [address] [address] * (ABNORMAL) Reticulocyte count (07/05/2024 8:06 PM CDT) % Reticulocyte 18.4(H) 0.5 - 2.0 % 07/05/2024 8:50 PM CDT [facility] Absolute Reticulocyte 0.478(H) 0.025 - 0.095 10e6/uL 07/05/2024 8:50 PM CDT [facility] Blood BLOOD SPECIMEN / Unknown Venipuncture / Unknown 07/05/2024 8:06 PM CDT 07/05/2024 8:19 PM CDT Vasiliy Lyle MD LAB - BLOOD ORDERABLES Final Result Performing Organization Address [facility] de Phone Number [facility] [address] [facility], [address] [address] * (ABNORMAL) Basic metabolic panel (07/05/2024 8:06 PM CDT) Pathologist [facility] Sodium 137 135 - 145 mmol/L 07/06/2024 6:41 AM CDT [facility] Potassium 4.4 3.4 - 5.3 mmol/L 07/06/2024 6:41 AM CDT [facility] Chloride 107 98 - 107 mmol/L 07/06/2024 6:41 AM CDT [facility] Carbon Dioxide (CO2) 20(L) 22 - 29 mmol/L 07/06/2024 6:41 AM CDT [facility] Anion Gap 10 7 - 15 mmol/L 07/06/2024 6:41 AM CDT [facility] Urea Nitrogen 6.7 6.0 - 20.0 mg/dL 07/06/2024 6:41 AM CDT [facility] Creatinine 0.66 0.51 - 0.95 mg/dL 07/06/2024 6:41 AM CDT [facility] GFR Estimate >90 >60 mL/min/1.7 3m2 07/06/2024 6:41 AM CDT [facility] Comment:eGFR calculated 2020 CKD-EPI equation. Calcium 8.8 8.8 - 10.4 mg/dL 07/06/2024 6:41 AM CDT [facility] Glucose 86 70 - 99 mg/dL 07/06/2024 6:41 AM CDT [facility] Blood BLOOD SPECIMEN / Unknown Venipuncture / Unknown 07/05/2024 8:06 PM CDT 07/05/2024 8:19 PM CDT us Vasiliy Lyle MD LAB - BLOOD ORDERABLES Final Result [facility] Acute Care Lab [address], [address] [place] [address], [facility] Core Lab [address] [facility], [address] [place] [address], [facility] * XR Chest 2 Views (07/05/2024 7:33 PM CDT) Anatomical Region Laterality Modality Chest Digital Radiogra phy 07/05/2024 7:33 PM CDT Impressions 07/05/2024 8:08 PM CDT IMPRESSION: Bilateral chest ports remains in place. Heart size and pulmonary vascularity are normal. There are some new or increased nodular opacities within the bilateral upper lungs. Some additional scattered nodular opacities are not significantly changed. No new focal consolidation, pleural effusion, or pneumothorax. Narrative 07/05/2024 8:08 PM CDT EXAM: XR CHEST 2 VIEWS LOCATION: [facility] DATE: 07/05/2024 INDICATION: chest pain and SCC, r o acute chest COMPARISON: Chest radiograph and CTA chest 06/26/2024. Procedure Note Darius Swan MD - 07/05/2024 EXAM: XR CHEST 2 VIEWS LOCATION: [facility] DATE: 07/05/2024 INDICATION: chest pain and SCC, r o acute chest COMPARISON: Chest radiograph and CTA chest 06/26/2024. IMPRESSION: Bilateral chest ports remains in place. Heart size andpulmonary vascularity are normal. There are some new or increased nodularopacities within the bilateral upper lungs. Some additional scatterednodular opacities are not significantly changed. No new focal consolidation, pleural effusion, or pneumothorax. us Vasiliy Lyle MD IMG DIAGNOSTIC IMAGING ORDERA BLES Final Result documented in this encounter Visit Diagnoses Diagnosis Sickle cell disease with crisis (H) Hb-SS disease with crisis documented in this encounter Administered Medications Inactive Administered Medications - up to 3 most recent administrations Medication Order MAR Action Action Date Dose Rate Site diphenhydrAMINE (BENADRYL) capsule 25 mg 25 mg, Oral, ONCE, On Wed07/05/24 at 1920, For 1 dose $Given 07/05/2024 8:02 PM CDT 25 mg heparin lock flush 100 unit/mL injection 5 mL 5 mL, Intravenous, ONCE, On Wed07/05/24 at 2235, For 1 dose $Given 07/05/2024 10:33 PM CDT 5 mLs hydromorphone (DILAUDID) injection 2 mg 2 mg, Intravenous, ONCE, On Wed07/05/24 at 1920, For 1 dose $Given 07/05/2024 8:02 PM CDT 2 mg hydromorphone (DILAUDID) injection 2 mg 2 mg, Intravenous, ONCE, On Wed07/05/24 at 2110, For 1 dose $Given 07/05/2024 9:11 PM CDT 2 mg hydromorphone (DILAUDID) injection 2 mg 2 mg, Intravenous, ONCE, On Wed07/05/24 at 2205, For 1 dose $Given 07/05/2024 10:09 PM CDT 2 mg lactated ringers BOLUS 1,000 mL Intravenous, 1,000 mL, ONCE, at 500 mL/hr, Administer over 2 Hours, On Wed07/05/24 at 1920, For 1 dose $New Bag 07/05/2024 8:02 PM CDT 1,000 mLs 500 mL/hr ondansetron (ZOFRAN) injection 8 mg 8 mg, Intravenous, ONCE, Administer over 2-5 Minutes, On Wed07/05/24 at 1920, For 1 dose $Given 07/05/2024 8:02 PM CDT 8 mg documented in this encounter Active and Recently Administered Medications Times are shown in CDT. Scheduled Medication Order 07/03/2024 07/04/2024 07/05/2024 diphenhydrAMINE (BENADRYL) capsule 25 mg (COMPLETED) 25 mg, Oral, ONCE, On Wed07/05/24 at 1920, For 1 dose 2001 ($Given - Provi nas: Lynn Estrada RN) heparin lock flush 100 unit/mL injection 5 mL (COMPLETED) 5 mL, Intravenous, ONCE, On Wed07/05/24 at 2235, For 1 dose 2232 ($Given - Provi nas: Lynn Estrada RN) hydromorphone (DILAUDID) injection 2 mg (COMPLETED) 2 mg, Intravenous, ONCE, On Wed07/05/24 at 1919, For 1 dose 2001 ($Given - Provi nas: Lynn Estrada RN) hydromorphone (DILAUDID) injection 2 mg (COMPLETED) 2 mg, Intravenous, ONCE, On Wed07/05/24 at 2109, For 1 dose 2110 ($Given - Provi nas: Lynn Estrada RN) hydromorphone (DILAUDID) injection 2 mg (COMPLETED) 2 mg, Intravenous, ONCE, On Wed07/05/24 at 2204, For 1 dose 2208 ($Given - Provi nas: Lynn Estrada RN) lactated ringers BOLUS 1,000 mL (COMPLETED) Intravenous, 1,000 mL, ONCE, at 500 mL/hr, Administer over 2 Hours, On Wed07/05/24 at 1920, For 1 dose 2001 ($New Bag - Pro vider: Lynn Estrada RN)2207 (Stopped - Provider: Lynn Estrada RN) ondansetron (ZOFRAN) injection 8 mg (COMPLETED) 8 mg, Intravenous, ONCE, Administer over 2-5 Minutes, On Wed07/05/24 at 1920, For 1 dose 2001 ($Given - Provi nas: Lynn Estrada RN) documented in this encounter Care Teams Project Coordinator Rn Relationship Specialty Start Date End Date Veronica Joseph MD [address] [place] [address] PCP - General Family Medicine 06/18/24 Mor Ramsey Medical Student 04/03/24 Case Samuel MD [address] [place] [address], [address] [place] [address] Assigned Pediatric Specialist Provider 05/18/24 Juhi Benson, RN Specialty [employer] [place] Counselor Hematology & Oncology 05/29/24 documented as of this encounter
--- OUTSIDE RECORDS SUMMARY | 2024-07-28 20:47 | XMS_ITS | Encounter Summary ---
Author Organization [facility] Address [address] [place] [address] Care Team Providers Care Cadmium Burner Name Role Phone RoxyElvirac Unavailable Unavailable Case Samuel MD Unavailable [phone] Juhi Benson RN Unavailable Unavailable Veronica Joseph MD Primary Care Provider [phone] Reason for Visit * Reason Comments Sickle Cell Pain Crisis Encounter Details Date Type Department Care Team (Late st Contact Info) Description 07/01/2024 6:18 PM TIPPLE BOSS - 07/01/2024 9:43 PM TIPPLE BOSS Emergency [facility] Emergency Department [address] [place] [phone] Andres Sheikh MD [address] [place] [address] [phone] Sickle cell pain crisis (H) Discharge Disposition: [...] on file Legal Sex Female 8:25 AM TIPPLE BOSS Gender Identity Not on file Sexual Orientation Not on file documented as of this encounter Last Filed Vital Signs Vital Sign Reading Time Taken Comments Blood Pressure 130/72 07/01/2024 6:13 PM TIPPLE BOSS Pulse 112 07/01/2024 6:13 PM TIPPLE BOSS Temperature 36.8 C (98.2 F) 07/01/2024 6:13 PM TIPPLE BOSS Respiratory Rate 20 07/01/2024 6:13 PM TIPPLE BOSS Oxygen Saturation 97% 07/01/2024 6:13 PM TIPPLE BOSS Inhaled Oxygen Concentration - - Weight - - Height - - Body Mass Index - - documented in this encounter Discharge Instructions * Discharge Instructions* Andres hSeikh MD - 07/01/2024 9:28 PM TIPPLE BOSS Please follow-up with your industrial aerial installer about your ER visit and your hemoglobin of 7.1. Return to the ER for any new or worsening symptoms. Particular lightheadedness presyncope excetra. LE BOSS LE BOSS documented in this encounter Medications at Time [...] 05/01/2024 naloxone (NARCAN) 4 MG/0.1ML nasal spray Kent 1 spray (4 mg) into one nostril [...] needed for severe pain. 40 tablet 06/29/2024 5 documented as of this encounter ED Notes * Andres Sheikh MD - 07/01/2024 6:23 PM CST ED Provider Note 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 I didtalk to the industrial aerial installer about a hemoglobin of 7 they are [...] Wilkinson, am serving as a trained medical support specialist to document services personally performed by Andres Sheikh MD, based on the provider's statements to me. I, Andres Sheikh MD, was physically present and have reviewed and verified the accuracy of this note documented by Tatiana Wilkinson. Andres Sheikh MD [facility] 07/01/2024 Andres Sheikh MD 07/01/24 1538 LE BOSS * Lebron Aponte RN - 07/01/2024 6:15 PM CST Pt ambulatory to triage with CC of sickle cell pain, generalized. Hx acute chest, states this pain does not feel like acute chest. Onset 2 days ago, discharge 3 days ago (was admitted for blood clots). Tearful in triage, took all home meds without relief. Triage Assessment (Adult) Row Name 07/01/24 8607 Triage Assessment Airway WDL WDL Respiratory WDL Respiratory WDL WDL Skin Circulation/Temperature WDL Skin Circulation/Temperature WDL WDL Cardiac WDL Cardiac WDL WDL Peripheral/Neurovascular WDL Peripheral Neurovascular WDL WDL Cognitive/Neuro/Behavioral WDL Cognitive/Neuro/Behavioral WDL WDL [place] Coma Scale Best Eye Response 4-->(E4) spontaneous Best Motor Response 6-->(M6) obeys commands Best Verbal Response 5-->(V5) oriented [place] Coma Scale Score 15 LE BOSS documented in this encounter Plan of Treatment Upcoming Encounters Date Type Department Care Team (Late st Contact Info) Description 08/07/2024 7:15 AM CDT Lab [facility] [address] [place] [address] Case Samuel MD [address] [place] [address], [address] [place] [address] 08/08/2024 8:00 AM CDT Appointment [facility] [address] [phone] Case Samuel MD [address] [place] [address], [address] [place] [address] 10/30/2024 11:30 AM CDT Lab [facility] Cancer [address] [phone] Case Samuel MD [address] [place] [address], [address] [place] [address] 10/30/2024 12:00 PM CDT Oncology Visit [facility] Cancer [address] [phone] Case Samuel MD [address] [place], [place] [address], [address]OM [address] [address] documented as of this encounter Goals Goal [...] MANUAL DIFFERENTIAL STAT 07/01/2024 8 :00 PM TIPPLE BOSS CBC WITH PLATELETS AND DIFFERENTIAL STAT 07/01/2024 8:00 PM TIPPLE BOSS CBC WITH PLATELETS & DIFFERENTIAL STAT 07/01/2024 8:00 PM TIPPLE BOSS RETICULOCYTE COUNT STAT 07/01/2024 8: 00 PM TIPPLE BOSS COMPREHENSIVE METABOLIC PANEL STAT 07/01/2024 8:00 PM TIPPLE BOSS documented in this encounter Results * (ABNORMAL) Manual Differential (07/01/2024 8:00 PM TIPPLE BOSS) % Neutrophils 63 % JARET 07/01/2024 9:50 PM TIPPLE BOSS [facility] % Lymphocytes 25 % JARET 07/01/2024 9:50 PM TIPPLE BOSS [facility] % Monocytes 8 % JARET 07/01/2024 9:50 PM TIPPLE BOSS [facility] % Eosinophils 0 % JARET 07/01/2024 9:50 PM TIPPLE BOSS [facility] % Basophils 4 % JARET 07/01/2024 9:50 PM TIPPLE BOSS [facility] % Myelocytes 0 % JARET 07/01/2024 9:50 PM TIPPLE BOSS [facility] Absolute Neutrophils 4.9 1.6 - 8.3 10e3/uL JARET 07/01/2024 9:50 PM TIPPLE BOSS [facility] Absolute Lymphocytes 1.9 0.8 - 5.3 10e3/uL JARET 07/01/2024 9:50 PM TIPPLE BOSS [facility] Absolute Monocytes 0.6 0.0 - 1.3 10e3/uL JARET 07/01/2024 9:50 PM TIPPLE BOSS [facility] Absolute Eosinophils 0.0 0.0 - 0.7 10e3/uL JARET 07/01/2024 9:50 PM TIPPLE BOSS [facility] Absolute Basophils 0.3(H) 0.0 - 0.2 10e3/uL JARET 07/01/2024 9:50 PM TIPPLE BOSS [facility] Absolute Myelocytes 0.0 <=0.0 10e3/uL JARET 07/01/2024 9:50 PM TIPPLE BOSS [facility] NRBCs per 100 WBC 17 % JARET 07/01/2024 9:50 PM TIPPLE BOSS [facility] Absolute NRBCs 1.3 10e3/uL JARET 07/01/2024 9:50 PM TIPPLE BOSS [facility] RBC Morphology Confirmed RBC Indices JARET 07/01/2024 9:50 PM TIPPLE BOSS [facility] Platelet Assessment Automated Count Confirmed. Platelet morphology is normal. Automated Count Confirmed. Platelet morphology is normal. JARET 07/01/2024 9:50 PM TIPPLE BOSS [facility] Polychromasia Slight(A) None Seen JARET 07/01/2024 9:50 PM TIPPLE BOSS [facility] Sickle Cells Slight(A) None Seen JARET 07/01/2024 9:50 PM TIPPLE BOSS [facility] Target Cells Slight(A) None Seen JARET 07/01/2024 9:50 PM TIPPLE BOSS [facility] Blood BLOOD SPECIMEN / Unknown Venipuncture / Unknown 07/01/2024 8:00 PM TIPPLE BOSS 07/01/2024 8:07 PM TIPPLE BOSS Narrative [facility] - 07/01/2024 9:50 PM TIPPLE BOSS Differential done on Albumin treated blood due to Smudge Cells. us Andres Sheikh MD LAB - BLOOD ORDERABLES Liss plaza Result [facility] [address] [facility], Room [address] [place], [place] [phone] * (ABNORMAL) CBC with platelets and differential (07/01/2024 8:00 PM TIPPLE BOSS) WBC Count 7.7 4.0 - 11.0 10e3/uL 07/01/2024 9:50 PM TIPPLE BOSS [facility] RBC Count 2.18(L) 3.80 - 5.20 10e6/uL 07/01/2024 9:50 PM TIPPLE BOSS [facility] Hemoglobin 7.1(L) 11.7 - 15.7 g/dL 07/01/2024 9:50 PM TIPPLE BOSS [facility] Hematocrit 20.7(L) 35.0 - 47.0 % 07/01/2024 9:50 PM TIPPLE BOSS [facility] MCV 95 78 - 100 fL 07/01/2024 9:50 PM TIPPLE BOSS [facility] MCH 32.6 26.5 - 33.0 pg 07/01/2024 9:50 PM TIPPLE BOSS [facility] MCHC 34.3 31.5 - 36.5 g/dL 07/01/2024 9:50 PM TIPPLE BOSS [facility] RDW 18.6(H) 10.0 - 15.0 % 07/01/2024 9:50 PM TIPPLE BOSS [facility] Platelet Count 383 150 - 450 10e3/uL 07/01/2024 9:50 PM TIPPLE BOSS [facility] Blood BLOOD SPECIMEN / Unknown Venipuncture / Unknown 07/01/2024 8:00 PM TIPPLE BOSS 07/01/2024 8:07 PM TIPPLE BOSS Andres Sheikh MD LAB - BLOOD ORDERABLES Liss l Result Performing Organization Address City/[facility]/ZIP Co de Phone Number [facility] [address] [facility], Room [address] * (ABNORMAL) Reticulocyte count (07/01/2024 8:00 PM TIPPLE BOSS) % Reticulocyte 7.3(H) 0.5 - 2.0 % 07/01/2024 8:13 PM TIPPLE BOSS [facility] Absolute Reticulocyte 0.159(H) 0.025 - 0.095 10e6/uL 07/01/2024 8:13 PM TIPPLE BOSS [facility] Blood BLOOD SPECIMEN / Unknown Venipuncture / Unknown 07/01/2024 8:00 PM TIPPLE BOSS 07/01/2024 8:07 PM TIPPLE BOSS Andres Sheikh MD LAB - BLOOD ORDERABLES Liss l Result [facility] [address] [facility], Room [address] [id number] * (ABNORMAL) Comprehensive metabolic panel (07/01/2024 8:00 PM TIPPLE BOSS) Sodium 136 135 - 145 mmol/L 07/01/2024 8:37 PM TIPPLE BOSS [facility] Potassium 4.9 3.4 - 5.3 mmol/L 07/01/2024 8:37 PM TIPPLE BOSS [facility] Carbon Dioxide (CO2) 20(L) 22 - 29 mmol/L 07/01/2024 8:37 PM TIPPLE BOSS [facility] Anion Gap 10 7 - 15 mmol/L 07/01/2024 8:37 PM TIPPLE BOSS [facility] Urea Nitrogen 13.4 6.0 - 20.0 mg/dL 07/01/2024 8:37 PM TIPPLE BOSS [facility] Creatinine 0.65 0.51 - 0.95 mg/dL 07/01/2024 8:37 PM TIPPLE BOSS [facility] GFR Estimate >90 >60 mL/min/1.7 3m2 07/01/2024 8:37 PM TIPPLE BOSS [facility] Comment:eGFR calculated us2020 CKD-EPI equation. Calcium 8.8 8.8 - 10.4 mg/dL 07/01/2024 8:37 PM TIPPLE BOSS [facility] Chloride 106 98 - 107 mmol/L 07/01/2024 8:37 PM TIPPLE BOSS [facility] Glucose 102(H) 70 - 99 mg/dL 07/01/2024 8:37 PM TIPPLE BOSS [facility] Alkaline Phosphatase 104 40 - 150 U/L 07/01/2024 8:37 PM TIPPLE BOSS [facility] AST 57(H) 0 - 45 U/L 07/01/2024 8:37 PM TIPPLE BOSS [facility] ALT 53(H) 0 - 50 U/L 07/01/2024 8:37 PM TIPPLE BOSS [facility] Protein Total 7.3 6.4 - 8.3 g/dL 07/01/2024 8:37 PM TIPPLE BOSS [facility] Albumin 4.1 3.5 - 5.2 g/dL 07/01/2024 8:37 PM TIPPLE BOSS [facility] Bilirubin Total 1.4(H) <=1.2 mg/dL 07/01/2024 8:37 PM TIPPLE BOSS [facility] Blood BLOOD SPECIMEN / Unknown Venipuncture / Unknown 07/01/2024 8:00 PM TIPPLE BOSS 07/01/2024 8:07 PM TIPPLE BOSS us Andres Sheikh MD LAB - BLOOD ORDERABLES Liss bola Result [facility] [address] [facility], Room 3[address] [place] [phone] documented in this encounter Visit Diagnoses Diagnosis 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 documented in this encounter Administered Medications Inactive Administered Medications - up to 3 most recent administrations Medication Order MAR Action Action Date Dose Rate Site diphenhydrAMINE (BENADRYL) capsule 50 mg 50 mg, Oral, ONCE, On 07/01/24 at 1835, For 1 dose $Given 07/01/2024 6:55 PM TIPPLE BOSS 50 mg heparin lock flush 100 unit/mL injection 100 Units 100 Units, Intravenous, ONCE, On 07/01/24 at 2130, For 1 dose $Given 07/01/2024 9:40 PM TIPPLE BOSS 100 Units hydromorphone (DILAUDID) injection 2 mg 2 mg, Intravenous, ONCE, On 07/01/24 at 1835, For 1 dose $Given 07/01/2024 6:54 PM TIPPLE BOSS 2 mg hydromorphone (DILAUDID) injection 2 mg 2 mg, Intravenous, EVERY 1 HOUR PRN, severe pain, Starting on 07/01/24 at 2001, For 2 doses $Given 07/01/2024 9:22 PM TIPPLE BOSS 2 mg $Given 07/01/2024 8:05 PM TIPPLE BOSS 2 mg lactated ringers BOLUS 1,000 mL Intravenous, 1,000 mL, ONCE, at 1,000 mL/hr, Administer over 1 Hours, On 07/01/24 at 1835, For 1 dose $New Bag 07/01/2024 6:55 PM TIPPLE BOSS 1,000 mLs 1000 mL/hr ondansetron (ZOFRAN) injection 8 mg 8 mg, Intravenous, ONCE, Administer over 2-5 Minutes, On 07/01/24 at 1835, For 1 dose $Given 07/01/2024 6:54 PM TIPPLE BOSS 8 mg documented in this encounter Active and Recently Administered Medications Times are shown in TIPPLE BOSS. Scheduled Medication Order 06/29/2024 06/30/2024 07/01/2024 diphenhydrAMINE (BENADRYL) capsule 50 mg (COMPLETED) 50 mg, Oral, ONCE, On 07/01/24 at 1835, For 1 dose 1855 ($Given - Provi nas: Woody Wade RN) heparin lock flush 100 unit/mL injection 100 Units (COMPLETED) 100 Units, Intravenous, ONCE, On 07/01/24 at 2130, For 1 dose 2139 ($Given - Provi nas: Tristian áSnchez RN) hydromorphone (DILAUDID) injection 2 mg (COMPLETED) 2 mg, Intravenous, ONCE, On 07/01/24 at 1835, For 1 dose 1853 ($Given - Provi nas: oWody Wade RN) lactated ringers BOLUS 1,000 mL (COMPLETED) Intravenous, 1,000 mL, ONCE, at 1,000 mL/hr, Administer over 1 Hours, On 07/01/24 at 1835, For 1 dose 1854 ($New Bag - Pro vider: Woody Wade RN)2141 (Stopped - Provider: Tristian Sánchez RN) ondansetron (ZOFRAN) injection 8 mg (COMPLETED) 8 mg, Intravenous, ONCE, Administer over 2-5 Minutes, On 07/01/24 at 1835, For 1 dose 1853 ($Given - Provi nas: Woody Wade RN) PRN Medication Order 06/29/2024 06/30/2024 07/01/2024 hydromorphone (DILAUDID) injection 2 mg (COMPLETED) 2 mg, Intravenous, EVERY 1 HOUR PRN, severe pain, Starting on 07/01/24 at 2001, For 2 doses 2004 ($Given - Provi nas: Ayo Suarez RN)2121 ($Given - Provider: Tristian Sánchez RN) documented in this encounter Care Teams Cadmium Burner Relationship Specialty Start Date End Date Vernoica Joseph MD [address] [place] [address] PCP - General Family Medicine 06/18/24 Mor Ramsey Medical Student 04/03/24 Case Samuel MD [address] [place] [address], [address] [place] [address] Assigned Pediatric Specialist Provider 05/18/24 Juhi Benson, RN Specialty Animal Daycare Provider Hematology & Oncology 05/29/24 documented as of this encounter
--- OUTSIDE RECORDS SUMMARY | 2024-07-28 20:47 | XMS_ITS | Encounter Summary ---
Author Organization [facility] Address [address] [place] [address]. 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 Cancer [address] [phone] Case Samuel MD [address] [place] [address], [address] [address] 08/08/2024 8:00 AM CDT Appointment [facility] Advanced Treatment [address] [phone] Case Samuel MD [address] [place] [address], [address] [address] 10/30/2024 11:[address] [facility] Cancer [address] [phone] Case Samuel MD [address] [place] [address], [address] [address] 10/30/2024 12:00 PM CDT Oncology Visit [facility] [address] [phone] Case Samuel MD [address] [facility] 484, [address] [place] [address] documented as of this encounter Goals Goal [...] on filedocumented in this encounter Care Teams Water Aerobics Instructor Relationship Specialty Start Date End Date Veronica Joseph MD [address] [place] [address] PCP - General Family Medicine 06/18/24 Mor Ramsey Medical Student 04/03/24 Case Samuel MD [address] [facility] 484, [address] [place] [address] Assigned Pediatric Specialist Provider 05/18/24 Juhi Benson, RN Specialty Label Paster Hematology & Oncology 05/29/24 documented as of this encounter
--- OUTSIDE RECORDS SUMMARY | 2024-07-28 20:47 | XMS_ITS | Encounter Summary ---
Author Organization [facility] Address [address] [place] [address]. 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 Advanced Treatment [address] [phone] Case Samuel MD [address] [place] [address], [address] [address] 10/30/2024 11:30 AM CDT Lab [facility] Cancer [address] [phone] Case Samuel MD [address] [place] [address], RO[address] [address] 10/30/2024 12:00 PM CDT Oncology Visit [facility] Cancer [address] [phone] Case Samuel MD [address] [facility] 484, [address] [place] [address] documented as of this encounter Goals Goal [...] on filedocumented in this encounter Care Teams Assurance Services Manager Health Care Relationship Specialty Start Date End Date Veronica Joseph MD [address] [place] [address] PCP - General Family Medicine 06/18/24 Mor Ramsey Medical Student 04/03/24 Case Samuel MD [address] [facility] 484, [address] [place] [address] Assigned Pediatric Specialist Provider 05/18/24 Juhi Benson, RN Specialty Manager Underwriting Hematology & Oncology 05/29/24 documented as of this encounter
--- OUTSIDE RECORDS SUMMARY | 2024-07-28 20:47 | XMS_ITS | Encounter Summary ---
Author Organization [facility] Address [address] [place] [address]. 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 Gender Identity Not on file Sexual Orientation Not on file documented as of this encounter Plan of Treatment Upcoming Encounters Date Type Department Care Team (Late st Contact Info) Description 08/07/2024 7:15 AM CDT Lab [facility] Cancer [address] [phone] Case Samuel MD [address] [place] [address], RO[address] [address] 08/08/2024 8:00 AM CDT Appointment [facility] Advanced Treatment [address] [phone] Case Samuel MD [address] [place] [address], [address] [address] 10/30/2024 11:30 AM CDT Lab [facility] Cancer [address] [phone] Case Samuel MD [address] [place] [address], RO[address] [address] 10/30/2024 12:00 PM CDT Oncology Visit [facility] Cancer [address] [phone] Case Samuel MD [address] [facility] 484, [address] [place] [address] documented as of this encounter Goals Goal Patient Goal Type Associated Problems Recent Progress Patient-Stated? Author Pain Management General On track( 025 2:58 PM CDT) Yes Juhi eBnson, RN Note: Goal Statement: [...] on filedocumented in this encounter Care Teams Pouring Crane Operator Relationship Specialty Start Date End Date Veronica Joseph MD [address] [place] [address] PCP - General Family Medicine 06/18/24 Mor Ramsey Medical Student 04/03/24 Case Samuel MD [address] [facility] 484, [address] [place] [address] Assigned Pediatric Specialist Provider 05/18/24 Juhi Benson, RN Specialty Lumber Buyer Hematology & Oncology 05/29/24 documented as of this encounter
--- OUTSIDE RECORDS SUMMARY | 2024-07-28 20:47 | XMS_ITS | Encounter Summary ---
Author Organization [place] Address [address] [place] [address]. [place] [address] Care Team Providers Care Roller Hand Name Role Phone RoxyElvirac Unavailable Unavailable Case Samuel MD Unavailable [phone] Juhi Benson RN Unavailable Unavailable Veronica Joseph MD Primary Care Provider [phone] Reason for Visit * Reason Comments Abnormal Labs hemoglobin Sickle Cell Pain Crisis Back/ legs Encounter Details Date Type Department Care Team (Late st Contact Info) Description 07/02/2024 5:47 PM CDT - 07/02/2024 9:37 PM CDT Emergency [facility] Emergency Department [address] [place] [phone] Vasiliy Lutz, [address] [id number] Sickle cell pain crisis (H) Discharge Disposition: [...] on file 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 [facility] [facility] ([facility]) 07/02/24 ED PROVIDER NOTE History [...] Patient was given hydromorphone, LR, ondansetron, and diphenhydramine. Patient felt improved after these interventions. We will discharge with return precautions. I have reviewed the nursing notes. I have reviewed the findings, diagnosis, plan and need for follow up with the patient. New Prescriptions No medications on file Final diagnoses: None Vasiliy Lutz DO [facility] EM[facility]Y [facility]PARTMENT 07/02/2024 Vasiliy Lutz DO 07/03/24 [...] Info) Description 08/07/2024 7:15 AM CDT Lab [facility] Cancer [address] [phone] Case Samuel MD [address] [place] [address], ROOM [address] [id number] 08/08/2024 8:00 AM CDT Appointment [facility] [address] [phone] Case aSmuel MD [address] [place], [place] [address], ROOM [address] [address] 10/30/2024 11:30 AM CDT Lab [facility] Cancer [address] [phone] Case Samuel MD [address] [place], [place] [address], ROOM [address] [address] 10/30/2024 12:00 PM CDT Oncology Visit [facility] Cancer [address] [phone] Case Samuel MD [address] [facility] 484, [address] [place] [address] documented as of this encounter Goals Goal [...] BLOOD ORDERABLES Fi nal Result [facility] [address] [facility], Room 3[address] [place] [address], [facility] * Adult Type and Screen (07/02/2024 7:03 PM CDT) Pathologist [facility] [place] ABO/RH(D) A POS 07/02/2024 6:10 PM CDT [facility] Antibody Screen Negative Negative 07/02/2024 6:10 PM CDT [facility] SPECIMEN EXPIRATION DATE [id number] 07/02/2024 6:10 PM CDT [facility] Blood BLOOD SPECIMEN / Unknown Venipuncture / Unknown 07/02/2024 7:03 PM CDT 07/02/2024 7:13 PM CDT Vasiliy Lutz DO LAB - BLOOD BANK TEST ORD ER Final Result U BLOOD BANK [address] [place] [address] * (ABNORMAL) CBC with platelets and differential (07/02/2024 7:03 PM CDT) [facility] WBC Count 10.1 4.0 - 11.0 10e3/uL [...] BLOOD ORDERABLES Fi nal Result [facility] [address] [facility], Room 3[address] [place] [phone] * (ABNORMAL) Comprehensive metabolic panel (07/02/2024 [...] BLOOD ORDERABLES Fi nal Result [facility] [address] [facility], Room [address] [place] [phone] documented in this encounter [...] 1 HOUR PRN, moderate pain, Starting on Wed07/02/24 at 1808, For 3 doses $Given 07/02/2024 [...] this section may contain times in both DENTURE TECHNICIAN and CDT. Scheduled Medication Order 06/30/2024 07/01/2024 07/02/2024 diphenhydrAMINE (BENADRYL) capsule 25 mg (COMPLETED) 25 mg, Oral, ONCE, On 07/02/24 at 1810, For 1 dose 1923 ($Given - Provi nas: Tristian Sánchez RN) heparin lock flush 100 unit/mL injection 100 Units (COMPLETED) 100 Units, Intravenous, ONCE, On 07/02/24 at 2130, For 1 dose 2132 ($Given - Provi nas: Ayo Suarez RN) lactated ringers BOLUS 1,000 mL (COMPLETED) [...] Sánchez RN)2028 ($Given - Provider: Ayo Suarez, RN)2126 ($Given - Provider: Ayo Suarez, RN) documented in this encounter Care Teams Roller Hand Relationship Specialty Start Date End Date Veronica Joseph MD [address] [place] [address] PCP - General Family Medicine 06/18/24 Mor Ramsey Medical Student 04/03/24 Case Samuel MD [address] [place] [address], [address] [place] [address] Assigned Pediatric Specialist Provider 05/18/24 Juhi Benson, SOFIA Specialty Search Advertising Strategist Hematology & Oncology 05/29/24 documented as of this encounter
--- OUTSIDE RECORDS SUMMARY | 2024-07-28 20:47 | XMS_ITS | Encounter Summary ---
Author Organization [place] Address [address] [place] [address]. [place] [address] Care Team Providers Care Asphalt Machine Operator Name Role Phone Roxy Mor Unavailable Unavailable Case Samuel MD Unavailable [phone] Juhi Benson RN Unavailable Unavailable Veronica Joseph MD Primary Care Provider [phone] Encounter Details Date Type Department Care Team [...] file Legal Sex Female 8:25 AM CONCRETE PUDDLER Gender Identity Not on file Sexual Orientation Not on file documented as of this encounter Plan of Treatment Upcoming Encounters Date Type Department Care Team (Late st Contact Info) Description 08/07/2024 7:15 AM CDT Lab [facility] Cancer [address] [phone] Case Samuel MD [address] [place] [address], ROOM [address] [address] 08/08/2024 8:00 AM CDT Appointment [facility] Advanced Treatment [address] [phone] Case Samuel MD [address] [place] [address], [address] [address] 10/30/2024 11:30 AM CDT Lab [facility] Cancer [address] [phone] Case Samuel MD [address] [place] [address], ROOM [address] [address] 10/30/2024 12:00 PM CDT Oncology Visit [facility] Cancer [address] [phone] Case Samuel MD [address] [facility] 484, [address] [place] [address] documented as of this encounter Goals Goal [...] on filedocumented in this encounter Care Teams Asphalt Machine Operator Relationship Specialty Start Date End Date Veronica Joseph MD [address] [place] [address] PCP - General Family Medicine 06/18/24 Mor Ramsey Medical Student 04/03/24 Case Samuel MD [address] [facility] 484, [address] [place] [address] Assigned Pediatric Specialist Provider 05/18/24 Juhi Benson, RN Specialty Hydrochloric Area Supervisor Hematology & Oncology 05/29/24 documented as of this encounter
--- OUTSIDE RECORDS SUMMARY | 2024-07-28 20:48 | XMS_ITS | Encounter Summary ---
Author Organization [place] Address [address] [place] [address] Care Team Providers Care Roof Bolting Coal Miner Name Role Phone Roxy Mor Unavailable Unavailable Case Samuel MD Unavailable [phone] Juhi Benson RN Unavailable Unavailable Veronica Joseph MD Primary Care Provider [phone] Reason for Visit * Reason Comments Sickle Cell Pain Crisis Encounter Details Date Type Department Care Team (Late st Contact Info) Description 06/22/2024 5:23 PM EGG WORKER - 06/22/2024 10:02 PM EGG WORKER Emergency [facility] Emergency Department [address] [place] [phone] Lynne Varner MD [address] [place] [id number] Sickle cell anemia with crisis (H) Discharge [...] on file Legal Sex Female 8:25 AM EGG WORKER Gender Identity Not on file Sexual Orientation Not on file documented as of this encounter Last Filed Vital Signs Vital Sign Reading Time Taken Comments Blood Pressure 104/73 06/22/2024 5:03 PM EGG WORKER Pulse 100 06/22/2024 5:03 PM EGG WORKER Temperature 36.8 C (98.2 F) 06/22/2024 5:03 PM EGG WORKER Respiratory Rate 16 06/22/2024 5:03 PM EGG WORKER Oxygen Saturation 99% 06/22/2024 5:03 PM EGG WORKER Inhaled Oxygen Concentration - - Weight 52.2 kg (115 lb) 06/22/2024 5:03 PM EGG WORKER Height 154.9 cm (5' 1) 06/22/2024 5:03 PM EGG WORKER Body Mass Index 21.73 06/22/2024 5:03 PM EGG WORKER documented in this encounter Discharge Instructions * Discharge Instructions* Lynne Varner MD - 06/22/2024 5:43 PM EGG WORKER TODAY'S VISIT: You were seen today for [...] new or worsening symptoms or any concerns. WORKER * Attachments The following attachments cannot be sent through Care Everywhere. * Sickle Cell Crisis (Central African) documented in this encounter Medications [...] 05/01/2024 naloxone (NARCAN) 4 MG/0.1ML nasal spray [place] 1 spray (4 mg) into one nostril [...] Surgical History, and Social History in the [employer] system. Past Medical History: Diagnosis Date Acute [...] 11 naloxone (NARCAN) 4 MG/0.1ML nasal spray [place] 1 spray (4 mg) into one nostril [...] Concern Not on file Social History Narrative [id number] mom. Recently moved to [place] from [place], [place]. She is 1 of 9 [...] Social Connections: Socially Integrated (03/28/2024) [facility] Social Connections [...] Status --------- ------ CBC with platelets and d...[[id number]] Abnormal Final result RBC and Platelet Morphology[[id number]] Please view results for these tests on [...] with crisis (H) LYNNE VARNER MD 06/22/[address] [facility] EMERGENCY DEPARTMENT Lynne Varner MD 06/22/24 [id number] WORKER * Milagros Lofton RN - 06/22/2024 5:06 PM CST Pt is here for sickle cell crisis. Pain in her back and both legs. PT took her home dilaudid oral at 2 pm. Pt coming in for her pain. Denies any symptoms. Triage Assessment (Adult) Row Name 06/22/24 6319 Triage Assessment Airway WDL WDL Respiratory WDL Respiratory WDL WDL Skin Circulation/Temperature WDL Skin Circulation/Temperature WDL WDL Cardiac WDL Cardiac WDL WDL Cardiac Rhythm Other (Comment) Peripheral/Neurovascular WDL Peripheral Neurovascular WDL WDL Cognitive/Neuro/Behavioral WDL Cognitive/Neuro/Behavioral WDL WDL WORKER documented in this encounter Plan of Treatment Upcoming Encounters Date Type Department Care Team (Late st Contact Info) Description 08/07/2024 7:15 AM CDT Lab [facility] Cancer [address] [phone] Case Samuel MD [address] [place] [address], [address] [address] 08/08/2024 8:00 AM CDT Appointment [facility] Advanced Treatment [address] [phone] Case Samuel MD [address] [place] [address], [address] [address] 10/30/2024 11:30 AM CDT Lab [facility] Cancer [address] [phone] Case Samuel MD [address] [place], [place] [address], ROOM [address] [phone] 10/30/2024 12:00 PM CDT Oncology Visit [facility] Cancer [address] [phone] Case Samuel MD [address] [place], [place] [address], RO[address] [address] documented as of this encounter Goals Goal [...] PLATELETS AND DIFFERENTIAL STAT 06/22/2024 7:10 PM EGG WORKER CBC WITH PLATELETS & DIFFERENTIAL STAT 06/22/2024 7:10 PM EGG WORKER RETICULOCYTE COUNT STAT 06/22/2024 7: 10 PM EGG WORKER HCG QUALITATIVE STAT 06/22/2024 7:10 PM EGG WORKER COMPREHENSIVE METABOLIC PANEL STAT 06/22/2024 7:10 PM EGG WORKER documented in this encounter Results * (ABNORMAL) CBC with platelets and differential (06/22/2024 7:10 PM EGG WORKER) WBC Count 13.7(H) 4.0 - 11.0 10e3/uL 06/22/2024 7:47 PM EGG WORKER [facility] RBC Count 2.48(L) 3.80 - 5.20 10e6/uL 06/22/2024 7:47 PM EGG WORKER [facility] Hemoglobin 8.2(L) 11.7 - 15.7 g/dL 06/22/2024 7:47 PM EGG WORKER [facility] Hematocrit 23.3(L) 35.0 - 47.0 % 06/22/2024 7:47 PM EGG WORKER [facility] MCV 94 78 - 100 fL 06/22/2024 7:47 PM EGG WORKER [facility] MCH 33.1(H) 26.5 - 33.0 pg 06/22/2024 7:47 PM EGG WORKER [facility] MCHC 35.2 31.5 - 36.5 g/dL 06/22/2024 7:47 PM EGG WORKER [facility] RDW 18.6(H) 10.0 - 15.0 % 06/22/2024 7:47 PM EGG WORKER [facility] Platelet Count 470(H) 150 - 450 10e3/uL 06/22/2024 7:47 PM EGG WORKER [facility] % Neutrophils 78 % 06/22/2024 7:47 PM EGG WORKER [facility] % Lymphocytes 16 % 06/22/2024 7:47 PM EGG WORKER [facility] % Monocytes 4 % 06/22/2024 7:47 PM EGG WORKER [facility] % Eosinophils 1 % 06/22/2024 7:47 PM EGG WORKER [facility] % Basophils 1 % 06/22/2024 7:47 PM EGG WORKER [facility] % Immature Granulocytes 1 % 06/22/2024 7:47 PM EGG WORKER [facility] NRBCs per 100 WBC 3(H) <1 /100 025 7:47 PM EGG WORKER [facility] Absolute Neutrophils 10.6(H) 1.6 - 8.3 10e3/uL 06/22/2024 7:47 PM EGG WORKER [facility] Absolute Lymphocytes 2.3 0.8 - 5.3 10e3/uL 06/22/2024 7:47 PM EGG WORKER [facility] Absolute Monocytes 0.5 0.0 - 1.3 10e3/uL 06/22/2024 7:47 PM EGG WORKER [facility] Absolute Eosinophils 0.1 0.0 - 0.7 10e3/uL 06/22/2024 7:47 PM EGG WORKER [facility] Absolute Basophils 0.1 0.0 - 0.2 10e3/uL 06/22/2024 7:47 PM EGG WORKER [facility] Absolute Immature Granulocytes 0.1 <=0.4 10e3/uL 06/22/2024 7:47 PM EGG WORKER [facility] Absolute NRBCs 0.4 10e3/uL 06/22/2024 7:47 PM EGG WORKER [facility] Blood VENOUS LINE / Unknown Venipuncture / Unknown 06/22/2024 7:10 PM EGG WORKER 06/22/2024 7:16 PM EGG WORKER us Lynne Varner MD LAB - BLOOD ORDERABLES Fin al Result [facility] [place] [facility] [address] [facility] [address], Room 3-[address] [place] [address] * (ABNORMAL) Reticulocyte count (06/22/2024 7:10 PM EGG WORKER) [facility] % Reticulocyte 5.3(H) 0.5 - 2.0 % 06/22/2024 7:23 PM EGG WORKER [facility] Absolute Reticulocyte 0.130(H) 0.025 - 0.095 10e6/uL 06/22/2024 7:23 PM EGG WORKER [facility] Blood VENOUS LINE / Unknown Venipuncture / Unknown 06/22/2024 7:10 PM EGG WORKER 06/22/2024 7:16 PM EGG WORKER Lynne Varner MD LAB - BLOOD ORDERABLES Fin al Result Performing Organization Address [facility] Co de Phone Number [facility] [place] [facility] [address] [facility], [address] [phone] * HCG qualitative Blood (06/22/2024 7:10 PM EGG WORKER) [facility] hCG Serum Qualitative Negative Negative JARET 06/22/2024 7:45 PM EGG WORKER [facility] Comment:This test is for scr eening purposes. Results should be interpreted along with the clinical picture. Confirmation testing is available if warranted by ordering [id number], HCG Quantitative . Blood VENOUS LINE / Unknown Venipuncture / Unknown 06/22/2024 7:10 PM EGG WORKER 06/22/2024 7:26 PM EGG WORKER Lynne Varner MD LAB - BLOOD ORDERABLES Fin al Result [facility] [place] [facility] [address] [facility], [address] [phone] * (ABNORMAL) Comprehensive metabolic panel (06/22/2024 7:10 PM EGG WORKER) [facility] Sodium 137 135 - 145 mmol/L 06/22/2024 8:00 PM EGG WORKER [facility] Potassium 4.5 3.4 - 5.3 mmol/L 06/22/2024 8:00 PM EGG WORKER [facility] Carbon Dioxide (CO2) 21(L) 22 - 29 mmol/L 06/22/2024 8:00 PM EGG WORKER [facility] Anion Gap 8 7 - 15 mmol/L 06/22/2024 8:00 PM EGG WORKER [facility] Urea Nitrogen 12.1 6.0 - 20.0 mg/dL 06/22/2024 8:00 PM EGG WORKER [facility] Creatinine 0.71 0.51 - 0.95 mg/dL 06/22/2024 8:00 PM EGG WORKER [facility] GFR Estimate >90 >60 mL/min/1.7 3m2 06/22/2024 8:00 PM EGG WORKER [facility] Comment:eGFR calculated 2020 CKD-EPI equation. Calcium 9.5 8.8 - 10.4 mg/dL 06/22/2024 8:00 PM EGG WORKER [facility] Chloride 108(H) 98 - 107 mmol/L 06/22/2024 8:00 PM EGG WORKER [facility] Glucose 100(H) 70 - 99 mg/dL 06/22/2024 8:00 PM EGG WORKER [facility] Alkaline Phosphatase 119 40 - 150 U/L 06/22/2024 8:00 PM EGG WORKER [facility] AST 62(H) 0 - 45 U/L 06/22/2024 8:00 PM EGG WORKER [facility] ALT 54(H) 0 - 50 U/L 06/22/2024 8:00 PM EGG WORKER [facility] Protein Total 7.8 6.4 - 8.3 g/dL 06/22/2024 8:00 PM EGG WORKER [facility] Albumin 4.1 3.5 - 5.2 g/dL 06/22/2024 8:00 PM EGG WORKER [facility] Bilirubin Total 1.4(H) <=1.2 mg/dL 06/22/2024 8:00 PM EGG WORKER [facility] Blood VENOUS LINE / Unknown Venipuncture / Unknown 06/22/2024 7:10 PM EGG WORKER 06/22/2024 7:16 PM EGG WORKER us Lynne Varner MD LAB - BLOOD ORDERABLES Fin al Result [facility] [place] [facility] [address] [facility] [address], Room [address] [place] [address] documented in [...] For 1 dose $Given 06/22/2024 7:19 PM EGG WORKER 25 mg heparin lock flush 100 unit/mL injection 100 Units 100 Units, Intravenous, ONCE, On Citlali 06/22/24 at 2150, For 1 dose $Given 06/22/2024 9:53 PM EGG WORKER 100 Units hydromorphone (DILAUDID) injection 2 mg 2 mg, Intravenous, EVERY 1 HOUR PRN, severe pain, Starting on Citlali 06/22/24 at 1735, For 3 doses $Given 06/22/2024 9:33 PM EGG WORKER 2 mg $Given 06/22/2024 8:34 PM EGG WORKER 2 mg $Given 06/22/2024 7:20 PM EGG WORKER 2 mg lactated ringers BOLUS 1,000 mL Intravenous, 1,000 mL, ONCE, at 1,000 mL/hr, Administer over 1 Hours, On Citlali 06/22/24 at 1740, For 1 dose $New Bag 06/22/2024 7:19 PM EGG WORKER 1,000 mLs 1000 mL/hr ondansetron (ZOFRAN) injection 4 mg 4 mg, Intravenous, EVERY 30 MIN PRN, nausea, vomiting, Administer over 2-5 Minutes, Starting on Citlali 06/22/24 at 1735, For 3 doses, May repeat in 30 minutes as needed, up to 3 doses. $Given 06/22/2024 7:19 PM EGG WORKER 4 mg documented in this encounter Active and Recently Administered Medications Times are shown in EGG WORKER. Scheduled Medication Order 06/20/2024 06/21/2024 06/22/2024 diphenhydrAMINE [...] RN) documented in this encounter Care Teams Roof Bolting Coal Miner Relationship Specialty Start Date End Date Veronica Joseph MD [address] [place] [address] PCP - General Family Medicine 06/18/24 Mor Ramsey Medical Student 04/03/24 Case Samuel MD [address] [place] [address], [address] [place] [address] Assigned Pediatric Specialist Provider 05/18/24 Juhi Benson, SOFIA Specialty Manganese Wheeler Hematology & Oncology 05/29/24 documented as of this encounter
--- OUTSIDE RECORDS SUMMARY | 2024-07-28 20:48 | XMS_ITS ---
Author Organization [place] Address [address] [place] [address] Care Team Providers Care Metal Control Worker Name Role Phone Roxy Mor Unavailable Unavailable Case Samuel MD Unavailable [phone] Juhi Benson RN Unavailable Unavailable Veronica Joseph MD Primary Care Provider [phone] Transitional Care Management Status:Closed (Closed) Start date:06/16/2024 Enrollment date:06/16/2024 End date:06/30/2024 Close reason:Goals met Continued Care and Services Coordination
--- OUTSIDE RECORDS SUMMARY | 2024-07-28 20:48 | XMS_ITS | Encounter Summary ---
Author Organization [facility] Address [address] [place] [address] Care Team Providers Care Security And Compliance Analyst Name Role Phone RoxyElvirac Unavailable Unavailable Case Samuel MD Unavailable [phone] Juhi Benson RN Unavailable Unavailable Veronica Joseph MD Primary Care Provider [phone] Reason for Visit * Reason Comments Sickle Cell Pain Crisis Pt reports pain in back and b/l legs * Auth/Cert Specialty Diagnoses / Procedures Referred By Contac t Referred To Contact EMERGENCY MEDICINE Diagnoses Acute pulmonary embolism without acute cor pulmonale, unspecified pulmonary embolism type (H) Sickle cell pain crisis (H) [facility] Emergency Department [address] [place] [address] Phone: tel: Referral ID Status Reason Start Date Expiration Date Visits Re quested Visits Authorized [id number] 1 1 Encounter Details Date Type Department Care Team ([facility] Contact Info) Description 06/23/2024 6:03 PM RADIATION ONCOLOGY MANAGER - 06/23/2024 9:47 PM RADIATION ONCOLOGY MANAGER Emergency [facility] Emergency Department [address] [place] [phone] Dayna Crane MD [address] [address] Sickle cell disease with crisis (H) Discharge [...] on file Legal Sex Female 8:25 AM RADIATION ONCOLOGY MANAGER Gender Identity Not on file Sexual Orientation Not on file documented as of this encounter Last Filed Vital Signs Vital Sign Reading Time Taken Comments Blood Pressure 114/66 06/23/2024 7:49 PM RADIATION ONCOLOGY MANAGER Pulse 100 06/23/2024 5:53 PM RADIATION ONCOLOGY MANAGER Temperature 36.7 C (98 F) 06/23/2024 7:49 PM RADIATION ONCOLOGY MANAGER Respiratory Rate 16 06/23/2024 7:49 PM RADIATION ONCOLOGY MANAGER Oxygen Saturation 99% 06/23/2024 7:49 PM RADIATION ONCOLOGY MANAGER Inhaled Oxygen Concentration - - Weight 52.2 kg (115 lb) 06/23/2024 5:53 PM RADIATION ONCOLOGY MANAGER Height 154.9 cm (5' 1) 06/23/2024 5:53 PM RADIATION ONCOLOGY MANAGER Body Mass Index 21.73 06/23/2024 5:53 PM RADIATION ONCOLOGY MANAGER documented in this encounter Discharge Instructions * Discharge Instructions* Dayna Crane MD - 06/23/2024 9:00 PM RADIATION ONCOLOGY MANAGER Please make an appointment to follow up with Your Primary Care Provider in 2-3 days. ATION ONCOLOGY MANAGER ATION ONCOLOGY MANAGER * Attachments The following attachments cannot be sent through Care Everywhere. * Sickle Cell Crisis (Mauritanian) documented in this encounter Medications at Time [...] naloxone (NARCAN) 4 MG/0.1ML nasal spray [place] 1 spray (4 mg) into one nostril [...] 06/23/2024 6:12 PM CST Bed: [facility] Expected date: Expected time: Means of arrival: Comments: X3 monitor: G42 ATION ONCOLOGY MANAGER * Melanie Menon RN - 06/23/2024 5:54 PM CST Pt presents with sickle cell crisis with reported pain to the back and b/l legs. Triage Assessment (Adult) Row Name 06/23/24 1008 Triage Assessment Airway WDL WDL Respiratory WDL Respiratory WDL WDL Skin Circulation/Temperature WDL Skin Circulation/Temperature WDL WDL Cardiac WDL Cardiac WDL WDL Peripheral/Neurovascular WDL Peripheral Neurovascular WDL WDL Cognitive/Neuro/Behavioral WDL Cognitive/Neuro/Behavioral WDL WDL ATION ONCOLOGY MANAGER * Dayna Crane MD - 06/23/2024 5:47 PM CST Images from the original note were not included. [facility] ([facility]) 06/23/24 ED PROVIDER NOTE History No chief complaint on file. KARL Hernández is a 29 year old female with a past medical history of Hb-SS disease, Acute chest syndrome, Pulmonary embolism, Stroke and Endocarditis, who presents to the ED for evaluation of sickle cell pain crisis. Patient reports back, leg, and chest pain starting today. Patient reports shegot out of the hospital on Wednesday. Patient denies fever, nausea, vomiting, sore throat, and body aches. Per chart review, patient was admitted to [facility] for sickle cell pain crisis on 06/16/2024. Patient was also recently admitted from 06/12 - 06/15 but was discharged after achieving adequate pain control due to needing to take care of her daughter. Per care plan, Straightforward pain crises can be managed just [...] chest pain). 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 ER/Acute Care/Infusion Clinic: ? Hydromorphone 2 mg IVP/SC Q1H X 3 doses ? LR 500 ml/hr x 2 hours (1 L total) ? Other: Zofran 8 mg IV Past Medical History Past Medical History: Diagnosis [...] other systems negative. Physical Exam Physical Exam Vitals and nursing note reviewed. Constitutional: General: She is not in acute distress. Appearance: Normal appearance. She is well-developed. HENT: Head: Normocephalic and atraumatic. Eyes: General: No scleral icterus. Conjunctiva/sclera: Conjunctivae normal. Cardiovascular: Rate and Rhythm: Normal rate. Pulmonary: Effort: Pulmonary effort is normal. No respiratory distress. Abdominal: General: Abdomen is flat. Musculoskeletal: Cervical back: Normal range of motion and neck supple. Skin: General: Skin is warm and dry. Findings: No rash. Neurological: Mental Status: She is alert and oriented to person, place, and time. ED Course, Procedures, & Data Procedures No results found for any visits on 06/23/24. Medications - No data to display Labs [...] & Plan 29 year old female with a past medical history of Hb-SS disease, Acute chest syndrome, Pulmonary embolism, Stroke and Endocarditis, who presents to the ED for evaluation of sickle cell pain crisis. Vital signs stable and afebrile with normal pulse ox on percent on room air. Established, labs sent which revealed stable CBC with hemoglobin 8.0, normal electrolytes and a mild transaminitis with AST ALT of 8469. T. bili elevated 1.5. Patient is given her care plan including Dilaudid 2 mg IV x 3 andBenadryl. Upon repeat assessment patient's symptoms are likely improved and she was discharged homewith plan to follow-up with hematology. I have reviewed the nursing notes. I have reviewed the findings, diagnosis, plan and need for follow up with the patient. New Prescriptions No medications on file Final diagnoses: Sickle cell disease with crisis (H) IDmitriy, am serving as a trained medical biller/coder to document services personally performed by Dayna Crane MD based on the provider's statements to me on June 23, 2024. This document has been checked and approved by the attending provider. IDayna MD, was physically present and have reviewed and verified the accuracy of this note documented by Dmitriy Steinberg medical biller/coder. Dayna Crane MD [facility] 06/23/2024 Dayna Crane MD 07/22/24 0005 documented in this encounter Plan of Treatment Upcoming Encounters Date Type Department Care Team (Late st Contact Info) Description 08/07/2024 7:[address] [facility] [address] [place] [address] Case Samuel MD [address] [place] [address], [address] [place] [address] 08/08/2024 8:00 AM CDT Appointment [facility] [place] [address] [place] [address] Case Samuel MD [address] [facility] 484, [address] [place] [address] 10/30/2024 11:30 AM CDT Lab [facility] [address] [place] [phone] Case Samuel MD [address] [place] [address], [address] [place] [address] 10/30/2024 12:00 PM CDT Oncology Visit [address] [phone] Case Samuel MD [address] [place] [address], [address] [place], [place] [address] documented as of this encounter Goals Goal [...] PLATELETS AND DIFFERENTIAL STAT 06/23/2024 6:22 PM RADIATION ONCOLOGY MANAGER CBC WITH PLATELETS & DIFFERENTIAL STAT 06/23/2024 6:22 PM RADIATION ONCOLOGY MANAGER HCG QUALITATIVE STAT 06/23/2024 6:22 PM RADIATION ONCOLOGY MANAGER DIFFERENTIAL STAT 06/23/2024 6:22 PM RADIATION ONCOLOGY MANAGER COMPREHENSIVE METABOLIC PANEL STAT 06/23/2024 6:22 PM RADIATION ONCOLOGY MANAGER documented in this encounter Results * (ABNORMAL) Manual Differential (06/23/2024 6:22 PM RADIATION ONCOLOGY MANAGER) % Neutrophils 73 % 06/23/2024 7:05 PM RADIATION ONCOLOGY MANAGER [facility] % Lymphocytes 24 % 06/23/2024 7:05 PM RADIATION ONCOLOGY MANAGER [facility] % Monocytes 2 % 06/23/2024 7:05 PM RADIATION ONCOLOGY MANAGER [facility] % Eosinophils 0 % 06/23/2024 7:05 PM RADIATION ONCOLOGY MANAGER [facility] % Basophils 2 % 06/23/2024 7:05 PM RADIATION ONCOLOGY MANAGER [facility] NRBCs per 100 WBC 12(H) <=0 % 06/23/2024 7:05 PM RADIATION ONCOLOGY MANAGER [facility] Absolute Neutrophils 7.2 1.6 - 8.3 10e3/uL 06/23/2024 7:05 PM RADIATION ONCOLOGY MANAGER [facility] Absolute Lymphocytes 2.3 0.8 - 5.3 10e3/uL 06/23/2024 7:05 PM RADIATION ONCOLOGY MANAGER [facility] Absolute Monocytes 0.2 0.0 - 1.3 10e3/uL 06/23/2024 7:05 PM RADIATION ONCOLOGY MANAGER [facility] Absolute Eosinophils 0.0 0.0 - 0.7 10e3/uL 06/23/2024 7:05 PM RADIATION ONCOLOGY MANAGER [facility] Absolute Basophils 0.2 0.0 - 0.2 10e3/uL 06/23/2024 7:05 PM RADIATION ONCOLOGY MANAGER [facility] Absolute NRBCs 1.2(H) <=0.0 10e3/uL 025 7:05 PM RADIATION ONCOLOGY MANAGER [facility] RBC Morphology Confirmed RBC Indices 06/23/2024 7:05 PM RADIATION ONCOLOGY MANAGER [facility] Platelet Assessment Automated Count Confirmed. Platelet morphology is normal. Automated Count Confirmed. Platelet morphology is normal. 06/23/2024 7:05 PM RADIATION ONCOLOGY MANAGER [facility] Polychromasia Slight(A) None Seen 06/23/2024 7:05 PM RADIATION ONCOLOGY MANAGER [facility] Sickle Cells Slight(A) None Seen 06/23/2024 7:05 PM RADIATION ONCOLOGY MANAGER [facility] Target Cells Slight(A) None Seen 06/23/2024 7:05 PM RADIATION ONCOLOGY MANAGER [facility] Blood BLOOD SPECIMEN / Unknown Venipuncture / Unknown 06/23/2024 6:22 PM RADIATION ONCOLOGY MANAGER 06/23/2024 6:34 PM RADIATION ONCOLOGY MANAGER Dayna Crane MD LAB - BLOOD ORDERABLES Final Re sult [facility] [address], [address] [place] [phone] * (ABNORMAL) CBC with platelets and differential (06/23/2024 6:22 PM RADIATION ONCOLOGY MANAGER) [facility] WBC Count 9.8 4.0 - 11.0 10e3/uL 06/23/2024 6:45 PM RADIATION ONCOLOGY MANAGER [facility] RBC Count 2.49(L) 3.80 - 5.20 10e6/uL 06/23/2024 6:45 PM RADIATION ONCOLOGY MANAGER [facility] Hemoglobin 8.0(L) 11.7 - 15.7 g/dL 06/23/2024 6:45 PM RADIATION ONCOLOGY MANAGER [facility] Hematocrit 24.2(L) 35.0 - 47.0 % 06/23/2024 6:45 PM RADIATION ONCOLOGY MANAGER [facility] MCV 97 78 - 100 fL 06/23/2024 6:45 PM RADIATION ONCOLOGY MANAGER [facility] MCH 32.1 26.5 - 33.0 pg 06/23/2024 6:45 PM RADIATION ONCOLOGY MANAGER [facility] MCHC 33.1 31.5 - 36.5 g/dL 06/23/2024 6:45 PM RADIATION ONCOLOGY MANAGER [facility] RDW 18.8(H) 10.0 - 15.0 % 06/23/2024 6:45 PM RADIATION ONCOLOGY MANAGER [facility] Platelet Count 482(H) 150 - 450 10e3/uL 06/23/2024 6:45 PM RADIATION ONCOLOGY MANAGER [facility] Blood BLOOD SPECIMEN / Unknown Venipuncture / Unknown 06/23/2024 6:22 PM RADIATION ONCOLOGY MANAGER 06/23/2024 6:34 PM RADIATION ONCOLOGY MANAGER Dayna Crane MD LAB - BLOOD ORDERABLES Final Re sult [facility] [address], [address] * HCG qualitative Blood (06/23/2024 6:22 PM RADIATION ONCOLOGY MANAGER) Pathologist [facility] hCG Serum Qualitative Negative Negative JARET 06/23/2024 6:49 PM RADIATION ONCOLOGY MANAGER [facility] Comment:This test is for scr eening purposes. Results should be interpreted along with the clinical picture. Confirmation testing is available if warranted by ordering [id number], HCG Quantitative . Blood BLOOD SPECIMEN / Unknown Venipuncture / Unknown 06/23/2024 6:22 PM RADIATION ONCOLOGY MANAGER 06/23/2024 6:38 PM RADIATION ONCOLOGY MANAGER us Dayna Crane MD LAB - BLOOD ORDERABLES Final Re sult Performing Organization Address [facility]/ZIP Co de Phone Number [facility] [address], [address] * (ABNORMAL) Comprehensive metabolic panel (06/23/2024 6:22 PM RADIATION ONCOLOGY MANAGER) [facility] Sodium 140 135 - 145 mmol/L 06/23/2024 7:13 PM RADIATION ONCOLOGY MANAGER [facility] Potassium 4.3 3.4 - 5.3 mmol/L 06/23/2024 7:13 PM RADIATION ONCOLOGY MANAGER [facility] Carbon Dioxide (CO2) 24 22 - 29 mmol/L 06/23/2024 7:13 PM RADIATION ONCOLOGY MANAGER [facility] Anion Gap 7 7 - 15 mmol/L 06/23/2024 7:13 PM RADIATION ONCOLOGY MANAGER [facility] Urea Nitrogen 6.8 6.0 - 20.0 mg/dL 06/23/2024 7:13 PM RADIATION ONCOLOGY MANAGER [facility] Creatinine 0.61 0.51 - 0.95 mg/dL 06/23/2024 7:13 PM RADIATION ONCOLOGY MANAGER [facility] GFR Estimate >90 >60 mL/min/1.7 3m2 06/23/2024 7:13 PM RADIATION ONCOLOGY MANAGER [facility] Comment:eGFR calculated us2020 CKD-EPI equation. Calcium 8.8 8.8 - 10.4 mg/dL 06/23/2024 7:13 PM RADIATION ONCOLOGY MANAGER [facility] Chloride 109(H) 98 - 107 mmol/L 06/23/2024 7:13 PM RADIATION ONCOLOGY MANAGER [facility] Glucose 102(H) 70 - 99 mg/dL 06/23/2024 7:13 PM RADIATION ONCOLOGY MANAGER [facility] Alkaline Phosphatase 125 40 - 150 U/L 06/23/2024 7:13 PM RADIATION ONCOLOGY MANAGER [facility] AST 84(H) 0 - 45 U/L 06/23/2024 7:13 PM RADIATION ONCOLOGY MANAGER [facility] ALT 69(H) 0 - 50 U/L 06/23/2024 7:13 PM RADIATION ONCOLOGY MANAGER [facility] Protein Total 7.8 6.4 - 8.3 g/dL 06/23/2024 7:13 PM RADIATION ONCOLOGY MANAGER [facility] Albumin 4.2 3.5 - 5.2 g/dL 06/23/2024 7:13 PM RADIATION ONCOLOGY MANAGER [facility] Bilirubin Total 1.5(H) <=1.2 mg/dL 06/23/2024 7:13 PM RADIATION ONCOLOGY MANAGER [facility] Blood BLOOD SPECIMEN / Unknown Venipuncture / Unknown 06/23/2024 6:22 PM RADIATION ONCOLOGY MANAGER 06/23/2024 6:34 PM RADIATION ONCOLOGY MANAGER us Dayna Crane MD LAB - BLOOD ORDERABLES Final Re sult [facility] [address], [address] [phone] documented in this encounter Visit [...] For 1 dose $Given 06/23/2024 7:43 PM RADIATION ONCOLOGY MANAGER 25 mg heparin lock flush 100 unit/mL injection 100 Units 100 Units, Intravenous, ONCE, On Wed06/23/24 at 2100, For 1 dose $Given 06/23/2024 9:25 PM RADIATION ONCOLOGY MANAGER 100 Units hydromorphone (DILAUDID) injection 2 mg 2 mg, Intravenous, EVERY 1 HOUR PRN, severe pain, Starting on Wed06/23/24 at 1806, X 3 max $Given 06/23/2024 8:46 PM RADIATION ONCOLOGY MANAGER 2 mg $Given 06/23/2024 7:43 PM RADIATION ONCOLOGY MANAGER 2 mg $Given 06/23/2024 6:28 PM RADIATION ONCOLOGY MANAGER 2 mg sodium chloride 0.9% BOLUS 1,000 mL Intravenous, 1,000 mL, ONCE, at 1,000 mL/hr, Administer over 1 Hours, On Wed06/23/24 at 1810, For 1 dose $New Bag 06/23/2024 6:28 PM RADIATION ONCOLOGY MANAGER 1,000 mLs 1000 mL/hr documented in this encounter Active and Recently Administered Medications Times are shown in RADIATION ONCOLOGY MANAGER. Scheduled Medication Order 06/21/2024 06/22/2024 06/23/2024 diphenhydrAMINE [...] 1828 ($Given - Provi nas: Tristian France RN)194 ($Given - Provider: Mason Moon RN)2045 ($Given - Provider: Mason Moon RN) documented in this encounter Care Teams Security And Compliance Analyst Relationship Specialty Start Date End Date Veronica Joseph MD [address] [place] [id number] PCP - General Family Medicine 06/18/24 Mor Ramsey Medical Student 04/03/24 Case Samuel MD [address] [place] [address], [address] [place] [address] Assigned Pediatric Specialist Provider 05/18/24 Juhi Benson, RN Specialty Rn Prior Authorization Hematology & Oncology 05/29/24 documented as of this encounter
--- OUTSIDE RECORDS SUMMARY | 2024-07-28 20:48 | XMS_ITS | Encounter Summary ---
Author Organization [facility] Address [address] [place] [address]. 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 Gender Identity Not on file Sexual Orientation Not on file documented as of this encounter Plan of Treatment Upcoming Encounters Date Type Department Care Team (Late st Contact Info) Description 08/07/2024 7:15 AM CDT Lab [facility] [address] [phone] Case Samuel MD [address] [place], [place] [address], [address] [address] 08/08/2024 8:00 AM CDT Appointment [facility] [address] [phone] Case Samuel MD [address] [place], [place] [address], [address] [address] 10/30/2024 11:30 AM CDT Lab [facility] [address] [phone] Case Samuel MD [address] [place], [place] [address], [address] [address] 10/30/2024 12:00 PM CDT Oncology Visit [facility] [address] [phone] Case Samuel MD [address] [facility] 484, [address] [place], [place] [phone] documented as of this encounter Goals Goal [...] on filedocumented in this encounter Care Teams Fire Management Technician Relationship Specialty Start Date End Date No Ref-Primary, Physician PCP - General 03/15/24 06/17/24 Mor Ramsey Medical Student 04/03/24 Case Samuel MD [address] [facility] 484, [address] [place] [address] Assigned Pediatric Specialist Provider 05/18/24 Juhi Benson, RN Specialty Meat Seafood Associate Hematology & Oncology 05/29/24 documented as of this encounter
--- OUTSIDE RECORDS SUMMARY | 2024-07-28 20:48 | XMS_ITS | Encounter Summary ---
Author Organization [facility] Address [address] [place] [address]. [place] [address] Care Team Providers Care Solid Propellant Processor Name Role Phone RoxyElvirac Unavailable Unavailable Case Samuel MD Unavailable [phone] Juhi Benson RN Unavailable Unavailable Veronica Joseph MD Primary Care Provider [phone] Reason for Visit * Reason Onset Date Comments Refill Request 07/10/2024 Encounter Details Date Type Department Care Team (Late st Contact Info) Description 07/10/[address] [place] [phone] Csae Samuel MD [address] [place] [address], [address] [place], [place] [phone] Refill Request Social History Tobacco Use Types [...] on file 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 Case Samuel What pain is the medication treating: sickle cell pain How is the medication being taken?:2 tablets Q 6H Does pt have enough for today? Yes Is pain being adequately controlled on the current regimen?: Yes Experiencing any side effects from medication?: No Date of most recent appointment: 05/29/[address] Samuel. Any No Show Visits:No Next appointment: 07/10/[address] Samuel LYFT DRIVER Reviewed: No access Routed/Paged provider: Dr. Case Samuel. documented in this encounter Plan of Treatment Upcoming Encounters Date Type Department Care Team (Late st Contact Info) Description 08/07/2024 7:15 AM CDT Lab [facility] [address] [phone] Case Samuel MD [address] [place] [address], [address] [address] 08/08/2024 8:[address] [facility] [address] [phone] Case Samuel MD [address] [place] [address], [address] [id number] 10/30/2024 11:30 AM CDT Lab [facility] [address] [phone] Case Samuel MD [address] [place] [address], [address] [address] 10/30/2024 12:00 PM CDT Oncology Visit [facility] [address] [phone] Case Samuel MD [address] [place], [place] [address], [address] [phone] documented as of this encounter Goals Goal [...] crisis documented in this encounter Care Teams Solid Propellant Processor Relationship Specialty Start Date End Date Veronica Joseph MD [address] [place] [address] PCP - General Family Medicine 06/18/24 Mor Ramsey Medical Student 04/03/24 Case Samuel MD [address] [place] [address], [address] [place] [address] Assigned Pediatric Specialist Provider 05/18/24 Juhi Benson, RN Specialty Lithographic Stripper Hematology & Oncology 05/29/24 documented as of this encounter
--- OUTSIDE RECORDS SUMMARY | 2024-07-28 20:48 | XMS_ITS | Encounter Summary ---
Author Organization [facility] Address [address] [place] [address]. [place] [address] Care Team Providers Care Respiratory Care Faculty Name Role Phone No Ref-Primary, Physician Primary Care Provider Mor Ramsey Unavailable Unavailable Case Samuel MD Unavailable [phone] Juhi Benson RN Unavailable Unavailable Veronica Joseph MD Primary Care Provider [phone] Reason for Visit * Reason Comments Shortness of Breath Chest Pain Fever * Auth/Cert Specialty Diagnoses / Procedures Referred By Contac t Referred To Contact EMERGENCY MEDICINE Diagnoses Sickle cell pain crisis (H) [facility] Emergency Department [address] [place] [address] Phone: tel: Referral ID Status Reason Start Date Expiration Date Visits Re quested Visits Authorized [id number] 1 1 Encounter Details Date Type Department Care Team (Late st Contact Info) Description 06/16/2024 4:46 PM PUBLIC SERVICE DIRECTOR - 06/20/2024 11:00 AM PUBLIC SERVICE DIRECTOR Hospital Encounter [facility] 7C Med Surg [address] [place] [phone] Abimael Schofield MD [address] [place] [id number] Esdras Markham MD [address] [place] [address] German Hall MD [address] [place] [address] [address] [place] [address] Sickle cell pain crisis (H) [...] file Legal Sex Female 8:25 AM PUBLIC SERVICE DIRECTOR Gender Identity Not on file Sexual Orientation Not on file documented as of this encounter Last Filed Vital Signs Vital Sign Reading Time Taken Comments Blood Pressure 106/62 06/20/2024 6:00 AM PUBLIC SERVICE DIRECTOR Pulse 78 06/19/2024 2:25 PM PUBLIC SERVICE DIRECTOR Temperature 36.7 C (98 F) 06/20/2024 6:00 AM PUBLIC SERVICE DIRECTOR Respiratory Rate 18 06/20/2024 6:00 AM PUBLIC SERVICE DIRECTOR Oxygen Saturation 99% 06/20/2024 6:00 AM PUBLIC SERVICE DIRECTOR Inhaled Oxygen Concentration - - Weight - - Height - - Body Mass Index - - documented in this encounter Discharge Summaries * Rl Elias MD - 06/20/2024 8:39 AM CST [facility] Discharge Summary - Medicine & Pediatrics [...] her pain can be managed with her MINING SPECULATOR dilaudid 4mg q6h PRN. Hematology team is aware of discharge today and will arrange follow up. - continue MINING SPECULATOR dilaudid 4 mg Q6H PRN & further supportive cares as needed - follow up with Hematology as scheduled by their team - Continue MINING SPECULATOR hydroxyurea 1000mg BID - Continue MINING SPECULATOR folic acid 1mg daily - Continue topical diclofenac, lidocaine, icy hot PRN #ANGIE, resolved Likely prerenal with decreased PO intake. Cr 0.92 on admission, baseline ~0.61- 0.7. Improved with maintenance fluids. Encouraged adequate water intake at home. #Insomnia - melatonin 3 mg PRN #Anxiety - Continue MINING SPECULATOR fluoxetine Consultations This Hospital Stay HEMATOLOGY ADULT IP CONSULT CARE MANAGEMENT / SOCIAL WORK IP CONSULT Code Status Full Code Nivia Carvajal, MS3 Ricardo 1 Hospitalist Service [facility] 7C MED SURG [address] [facility] [id number] Physical Exam Vital Signs: Temp: 98 ??F [...] upon discharge: activity as tolerated Follow Up ([facility]) Follow up with primary care provider, Veronica Joseph, within 7 days for hospital follow- up. Thefollowing labs/tests are recommended: CBC. Appointments on [place] and/or [facility] (with [facility] or [facility] provider or service). Call [phone] if you haven't heard regarding these appointments [...] inadequate. naloxone (NARCAN) 4 MG/0.1ML nasal spray [place] 1 spray (4 mg) into one [...] Aydee Coughlin MD at 06/20/2024 11:52 AM PUBLIC SERVICE DIRECTOR IC SERVICE DIRECTOR IC SERVICE DIRECTOR Associated attestation - Aydee Coughlin MD - 06/20/2024 11:52 AM PUBLIC SERVICE DIRECTOR Physician Attestation I saw and evaluated this [...] 05/01/2024 naloxone (NARCAN) 4 MG/0.1ML nasal spray [place] 1 spray (4 mg) into one [...] stated on the papers. Home supply :N/A. IC SERVICE DIRECTOR * Araceli Ramires MD - 06/20/2024 8:42 [...] Overall, I spent 35 minutes today (DOS) [id number] and/or coordinating care as documented above and specifically listed as below: --Reviewing documentation related to patient's history and this current admission available in [employer] --Review and clinical interpretation of pertinent laboratory test results from this admission --Discussion with the patient --Discussion with patient's primary team --Documentation in the electronic health record IC SERVICE DIRECTOR * Linda Lomax MD - 06/19/2024 7:43 [...] Service (when I saw the patient): 06/19/24 [facility] Progress Note - Medicine Service, MAROON [...] senna PRN for supportive measures - Continue MINING SPECULATOR hydroxyurea 1000mg BID - Continue MINING SPECULATOR folic acid 1mg daily - Monitoring CBC [...] melatonin 3 mg PRN #Anxiety - Continue MINING SPECULATOR fluoxetine - Benadryl PRN per Pain Plan [...] Carvajal, MS3 Medical Student Medicine Service, [facility] TEAM [address] [place] [address] Securely message with [employer] (more info) Text page via [facility] Paging/Directory See signed in provider for [...] previous visit (from the past 24 hours). IC SERVICE DIRECTOR * Tejal Curry RN - 06/18/2024 6:54 PM CST Shift: 2539-9131 VS: Temp: 98.3 ??F (36.8 ??C) Temp [...] light appropriately Plan: Continue POC; manage pain IC SERVICE DIRECTOR * Linda Lomax MD - 06/18/2024 10:18 AM CST [facility] Progress Note - Medicine Service, RICARDO [...] benadryl, senna PRN for supportive measures -Continue MINING SPECULATOR hydroxyurea 1000mg BID -Continue MINING SPECULATOR folic acid 1mg daily - monitoring CBC w/diff, LDH, reticulocyte count, and LDH daily - type & screened, consented - continue topical diclofenac, lidocaine, icy hot PRN - blood cultures, urine culture >> NGTD #ANGIE, resolved Likely prerenal with decreased PO intake. - mIVF with LR - CMP in AM #Insomnia - Continue MINING SPECULATOR fluoxetine - melatonin 3 mg PRN Diet: [...] Hall . Linda Lomax MD Medicine Service, [address] Securely message with [employer] (more info) Text page via [facility] Paging/Directory See signed in provider for [...] German Hall MD at 06/18/2024 3:16 PM PUBLIC SERVICE DIRECTOR IC SERVICE DIRECTOR IC SERVICE DIRECTOR Associated attestation - German Hall MD - 06/18/2024 3:16 PM PUBLIC SERVICE DIRECTOR Attestation: This patient has been seen and [...] Overall, I spent 35 minutes today (DOS) [id number] and/or coordinating care as documented above and specifically listed as below: --Reviewing documentation related to patient's history and this current admission available in [employer] --Review and clinical interpretation of pertinent laboratory test results from this admission --Discussion with the patient --Discussion with patient's primary team --Documentation in the electronic health record IC SERVICE DIRECTOR * Rl Elias MD - 06/17/2024 11:31 AM CST [facility] Progress Note - [facility] Date of [...] benadryl, senna PRN for supportive measures -Continue MINING SPECULATOR hydroxyurea 1000mg BID -Continue MINING SPECULATOR folic acid 1mg daily - monitoring CBC w/diff, LDH, reticulocyte count, and LDH daily - type & screened, consented - continue topical diclofenac, lidocaine, icy hot PRN - blood cultures, urine culture to evaluate any further source of infection #ANGIE Likely prerenal with decreased PO intake. - mIVF with LR - CMP in AM #Insomnia - Continue MINING SPECULATOR fluoxetine - melatonin 3 mg PRN Diet: [...] Hall . RL ELIAS MD Medicine Service, [address] Securely message with [employer] (RouterShare info) Text page via [facility] Paging/Directory See signed in provider for [...] German Hall MD at 06/18/2024 3:07 PM PUBLIC SERVICE DIRECTOR IC SERVICE DIRECTOR IC SERVICE DIRECTOR IC SERVICE DIRECTOR Associated attestation - German Hall MD - 06/18/2024 3:07 PM PUBLIC SERVICE DIRECTOR Attestation: This patient has been seen and evaluated by me, German Hall MD. Discussed with the house staff team or resident(s) and agree with the findings and plan in this note. I have reviewed today's Medications, Vital Signs, and Labs. DOS 06/17 documented in this encounter H&P Notes * Laquita Kelley MD - 06/16/2024 7:59 PM CST [facility] History and Physical - Medicine Service, [...] IV -mIVF with NS at 100ml/hr -Continue MINING SPECULATOR hydroxyurea 1000mg BID -Continue MINING SPECULATOR folic acid 1mg -PRN zofran for nausea -PRN benadryl for itching #ANGIE Likely prerenal with decreased PO intake. -mIVF with NS -Monitor #Insomnia -Continue MINING SPECULATOR fluoxetine Diet: Regular DVT Prophylaxis: Enoxaparin (Lovenox) SQ Santiago Catheter: Not present Fluids: NS at 100ml/hr Lines: PRESENT Cardiac Monitoring: None Code Status: Full Clinically Significant Risk Factors Present on Admission # Anemia: based on hgb <11 # Financial/Environmental Concerns: Disposition Plan Expected Discharge Date: 06/18/2024 The patient's care was discussed with the Attending Physician, Dr. Markham . 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, had port-a-cath in [facility] Functional asplenia Gallstones Hb-SS disease [...] 4 MG/0.1ML nasal spray No No Sig: [place] 1 spray (4 mg) into one [...] Esdras Markham MD at 06/17/2024 11:00 AM PUBLIC SERVICE DIRECTOR IC SERVICE DIRECTOR IC SERVICE DIRECTOR Associated attestation - Esdras Markham MD - 06/17/2024 11:00 AM PUBLIC SERVICE DIRECTOR Physician Attestation I saw this patient with [...] this encounter Consult Notes * Adelaide Acevedo, TRAY LINE SUPERVISOR - 06/18/2024 10:26 AM CSTAssociated Order(s): CARE [...] Communication Assessment Patient's communication style: spoken language (Ghanaian or Bilingual) Cognitive Cognitive/Neuro/Behavioral: WDL Living Environment: [...] Depression: Not at risk (04/11/2024) [facility] PHQ-2 PHQ-2 TOTAL SCORE: 1 Housing [...] Social Connections: Socially Integrated (03/28/2024) Received from [facility] Social Connections Do you often feel lonely or isolated from those around you?: 0 Health Literacy: Not on file Functional Status: Prior to admission patient needed assistance: Dependent ADLs:: Independent Dependent IADLs:: Independent Assesssment of Functional Status: Not at functional baseline Mental Health Status: Mental Health Status: No Current Concerns Chemical Dependency Status: Chemical Dependency Status: No Current Concerns Values/Beliefs: Spiritual, Cultural Beliefs, Lutheran Practices, Values that affect care: no Discussed [...] Care management signing off. LAURA Palacios 06/18/2024 Youth Support Worker Social Work and Care Management Department SEARCHABLE in [facility] - search SOCIAL WORK [place] [phone]) Wednesday and Wednesday Units: 4A Vocera, 4C Vocera, & 4E Vocera Units: 5A 4900-5540 Vocera, 5A 5924-7902 Vocera , BMT SW 1 BMT SW 2, BMT SW 3 & BMT SW 4 5C OffService 5401 - 5416 5C Off Service 9089-7853 Units: 6A Vocera & 6B Vocera Units: 6C Vocera Units: 7A Vocera & 7B Vocera Units: 7C Med Surg 7401 thru 7418 and 7C Med Surg 7502 thru 7521 Unit: [place] ED Vocera & [place] Obs Vocera [facility] ([phone]) Wednesday and Wednesday Units: 5 Ortho Vocera, 5 Med Surg Vocera & WB ED Vocera Units: 6 Med Surg Vocera, 8 Med Surg Vocera, & 10 ICU Vocera After hours Vocera [facility] and After Hours Vocera [place] Please NOTE changes to times below: Wednesday & Wednesday (1629 - 2029) Wed-Wed (9958-8113) [facility] Recognized Holidays (5039-7340) Units: ALL - see above VOCERA links to units IC SERVICE DIRECTOR * Drake Nina MD - 06/17/2024 8:55 AM CSTAssociated Order(s): HEMATOLOGY ADULT IP CONSULT Images from the original note were not included. Hematology Consult Note Date of Service: 06/17/2024 Patient: Gianna Hernández Admission Date: 06/16/2024 Hospital Day # 1 Hematology Diagnosis: Sickle Cell Disease Primary Outpatient Shoe Clerk: Dr. Samuel Reason for Consult: Vasoocclusive pain [...] the care coordination note. Please continue her MINING SPECULATOR hydrea and folic acid. Recommendations: - Please follow pain plan as outlined in the care coordination note in the summary section. - Ordered 1 unit PRBC along with blood consent which is placed in the chart. - Please continue MINING SPECULATOR hydrea 1000 mg BID, Folate 1mg daily. [...] Drake Nina MD Hematology/Oncology/BMT Fellow PGY4 Pager: [phone] History of Present Illness: Gianna Hernández is [...] Currently Drug use: Never Social History Narrative Jzqd-ne-wcwj mom. Recently moved to [place] from [place], [place]. She is 1 of 9 [...] Integrated (03/28/2024) [facility] Social [facility]ctions Do you often feel [...] inadequate. naloxone (NARCAN) 4 MG/0.1ML nasal spray [place] 1 spray (4 mg) into one [...] Araceli Ramires MD at 06/17/2024 11:14 AM PUBLIC SERVICE DIRECTOR IC SERVICE DIRECTOR IC SERVICE DIRECTOR Associated attestation - Araceli Ramires MD - 06/17/2024 11:14 AM PUBLIC SERVICE DIRECTOR Hematology Consult Attending Attestation I reviewed the [...] Overall, I spent 60 minutes today (DOS) [id number] and/or coordinating care as documented above and specifically listed as below: --Reviewing documentation related to patient's history and this current admission available in [facility] --Review and clinical interpretation of pertinent [...] time: Means of arrival: Comments: G 41 IC SERVICE DIRECTOR * Abimael Schofield MD - 06/16/2024 5:18 PM CST ED Provider Note [facility] History Chief Complaint Patient presents with [...] Range ABO/RH(D) A POS SPECIMEN EXPIRATION DATE [id number] CBC with platelets differential Status: Abnormal (In process) Narrative The following orders were created for panel order CBC with platelets differential. Procedure Abnormality Status --------- ------ CBC with platelets and d...[[id number]] Abnormal Preliminary result RBC and Platelet Morphology[[id number]] In process Please view results for these tests on the individual orders. ABO/Rh type and screen Status: None (In process) Narrative The following orders were created for panel order ABO/Rh type and screen. Procedure Abnormality Status --------- ------ Adult Type and Screen[[id number]] Preliminary result Please view results for these tests on the individual orders. Medications sodium chloride (PF) 0.9% PF flush 3 mL (has no administration in time range) sodium chloride (PF) 0.9% PF flush 3 mL (has no administration in time range) sodium chloride 0.9% BOLUS 500 mL (500 mLs Intravenous $New Bag 06/16/24 3112) sodium chloride 0.9 % infusion (has no administration in time range) hydromorphone (DILAUDID) injection 2 mg (2 mg Intravenous $Given 06/16/24 3050) Critical care was not performed. Medical Decision [...] chest syndrome Admit Med Abimael Schofield MD [facility] EMERGENCY DEPARTMENT 06/16/2024 Abimael Schofield MD 06/16/24 1846 IC SERVICE DIRECTOR * Yelitza Manriquez RN - 06/16/2024 4:37 [...] WDL WDL Cognitive/Neuro/Behavioral WDL Cognitive/Neuro/Behavioral WDL WDL IC SERVICE DIRECTOR documented in this encounter Miscellaneous Notes * [...] verbalized hope to discharge to home today IC SERVICE DIRECTOR * Summary of Care - Rene Morocho RN - 06/20/2024 12:38 AM CST (Change note type to summary of care) Reason for admission: Sickle cell crisis Admitted from: [facility] Report received from: Sarai Aburto [...] (January-July only): No, pt declined Detailed Belongings: [place] sweater, brown jacket, sweatpants, glasses, wallet, phone, 2 chargers, air pods IC SERVICE DIRECTOR * Plan of Care - Sarai Shrestha RN - 06/20/2024 12:11 AM CST Goal Outcome Evaluation: BP 103/79,HR 87bpm, resp 18,O2 99 RA Shift:8373-7165 Alert and oriented x4. Independent with ADLs. VSS. Pain managed with Q 2 hrs IV Dilaudid. C/O nausea PRN Zofran administered;effective. R chest port infusing LR @ 75 ml/hr. Report given to Rene BLACK in 7C. IC SERVICE DIRECTOR * Plan of Care - Amelia Gannon RN - 06/19/2024 6:26 AM CST Images from the original note were not included. Shift: 0317-3265 VS: BP 118/85 (BP Location: Left arm) Pulse 99 Temp 98.2 ??F (36.8 ??C) (Oral) Resp 18 UqG110% Pain: Sickle cell pain. Tx with scheduled dilaudid q2hr Neuro: WDL, A&Ox4 Cardiac: WDL Respiratory: WDL, on RA, on pulse ox GI/: WDL, Voiding spontaneously Diet/Appetite: Regular diet LDA's: R. Chest port infusing LR @ 75 Skin: WDL Activity: Independent Tests/Procedures: Pertinent Labs/Lab Collection: Plan: Goal Outcome Evaluation: IC SERVICE DIRECTOR * Plan of Care - Adelaide Acevedo MSW - 06/18/2024 11:05 AM CST Goal Outcome Evaluation: Plan of Care Reviewed With: patient Overall Patient Progress: improvingOverall Patient Progress: improving Pt anticipates discharge home w/ family once med ready IC SERVICE DIRECTOR * Plan of Care - Amelia Gannon RN - 06/18/2024 6:51 AM CST Shift: 1412-8897 VS: BP 115/66 (BP Location: Right arm, [...] Platelet, Creatinine, Reticulocyte Plan: Goal Outcome Evaluation: IC SERVICE DIRECTOR * Plan of Care - Lowell Pepper RN - 06/17/2024 9:37 PM CSTSummary: 4889-2683 BP 110/64 (BP Location: Right arm, Patient [...] Goal: Optimal Comfort and Wellbeing Outcome: Progressing IC SERVICE DIRECTOR * Provider Notification - Lowell Pepper RN - 06/17/2024 10:00 AM CST 06/17/24 0857 Critical Test Results/Notification Critical Lab Result (Lab Name and Value) Hgb 6.3 What Time Did The Lab Notify You? (follow up page. to day time provider.) Provider Notified yes Date of Provider Notification 06/17/24 Time of Provider Notification 0848 Mechanism of Provider notification telephone (via [employer]) What Provider Did You Notify? Neptali Elias MD Response aware (per primary teams. Awaiting recommendations from hematology team.) IC SERVICE DIRECTOR * Plan of Care - Zaynab Veliz RN - 06/17/2024 6:55 AM CST Goal Outcome Evaluation: Plan of Care Reviewed With: patient Overall Patient Progress: improving Outcome Evaluation: Pt presented to ED with acute onset left sided chest pain & sickle cell pain crisis Shift: 0880-5347 VS: Stable on RA, afebrile Neuro: A&Ox4 Labs: hemoglobin 6.3, provider notified Pain/Nausea: pain rated 8-9/10 PRN: benadryl X2, zofran x 1 Diet: Regular IV Access: none Infusion(s): NACL 100ml/hr Lines/Drains: L-chest wall GI/: voids without difficulty Skin: intact Mobility: up ad chandler Plan: Continue POC IC SERVICE DIRECTOR * Provider Notification - Zaynab Veliz RN - 06/17/2024 6:47 AM PUBLIC SERVICE DIRECTOR Jovan encinas lab called, critical value, pt hemoglobin 6.3. IC SERVICE DIRECTOR * Medication Scribe - Admission Medication History - Yennifer Edwards - 06/17/2024 4:14 AM CST Medication Scribe Admission Medication History Admission medication history is complete. The information provided in this note is only as accurateas the sources available at the time of the update. Information Source(s): Patient via in-person Pertinent Information: per pt+CE, pt reported taking medications on MINING SPECULATOR medication list as directed. No DRH. Changes made to MINING SPECULATOR medication list: Added: None Deleted: None Changed: None Allergies reviewed with patient and updates made in EHR: yes Medication History Completed By: Yennifer Edwards 06/17/2024 4:14 AM MINING SPECULATOR Med List Medication Sig Last Dose/Taking cefpodoxime [...] 1 tablet by mouth daily. 06/16/2024 Morning IC SERVICE DIRECTOR IC SERVICE DIRECTOR documented in this encounter Plan of Treatment Upcoming Encounters Date Type Department Care Team (Late st Contact Info) Description 08/07/2024 7:15 AM CDT Lab [facility] [address] [phone] Case Samuel MD [address] [place] [address], [address] [place] [address] 08/08/2024 8:00 AM CDT Appointment [facility] [address] [phone] Case Samuel MD [address] [place] [address], [address] [place] [address] 10/30/2024 11:30 AM CDT Lab [facility] [address] [place] [phone] Case Samuel MD [address] [facility], [address] [place], [place] [address] 10/30/2024 12:00 PM CDT Oncology Visit [facility] [address] [place] [phone] Case Samuel MD [address] [facility] [address], [address] [place] [address] documented as of this encounter Goals Goal [...] PLATELETS AND DIFFERENTIAL STAT 06/20/2024 5:48 AM PUBLIC SERVICE DIRECTOR LACTATE DEHYDROGENASE Routine 06/20/2024 5:48 AM PUBLIC SERVICE DIRECTOR CBC WITH PLATELETS & DIFFERENTIAL STAT 06/20/2024 5:48 AM PUBLIC SERVICE DIRECTOR RETICULOCYTE COUNT Routine 06/20/2024 5: 48 AM PUBLIC SERVICE DIRECTOR COMPREHENSIVE METABOLIC PANEL Routine 06/20/2024 5:48 AM PUBLIC SERVICE DIRECTOR RBC AND PLATELET MORPHOLOGY STAT 06/19/2024 9:30 AM PUBLIC SERVICE DIRECTOR CBC WITH PLATELETS AND DIFFERENTIAL STAT 06/19/2024 9:30 AM PUBLIC SERVICE DIRECTOR LACTATE DEHYDROGENASE STAT 06/19/2024 9:30 AM PUBLIC SERVICE DIRECTOR CBC WITH PLATELETS & DIFFERENTIAL STAT 06/19/2024 9:30 AM PUBLIC SERVICE DIRECTOR RETICULOCYTE COUNT STAT 06/19/2024 9: 30 AM PUBLIC SERVICE DIRECTOR COMPREHENSIVE METABOLIC PANEL STAT 06/19/2024 9:30 AM PUBLIC SERVICE DIRECTOR PLATELET COUNT STAT 06/19/2024 12:17 AM PUBLIC SERVICE DIRECTOR CREATININE STAT 06/19/2024 12:17 AM PUBLIC SERVICE DIRECTOR CBC WITH PLATELETS AND DIFFERENTIAL STAT 06/18/2024 8:24 AM PUBLIC SERVICE DIRECTOR LACTATE DEHYDROGENASE STAT 06/18/2024 8:24 AM PUBLIC SERVICE DIRECTOR CBC WITH PLATELETS & DIFFERENTIAL STAT 06/18/2024 8:24 AM PUBLIC SERVICE DIRECTOR RETICULOCYTE COUNT STAT 06/18/2024 8: 24 AM PUBLIC SERVICE DIRECTOR DIFFERENTIAL STAT 06/18/2024 8:24 AM PUBLIC SERVICE DIRECTOR COMPREHENSIVE METABOLIC PANEL STAT 06/18/2024 8:24 AM PUBLIC SERVICE DIRECTOR ROUTINE UA WITH MICROSCOPIC REFLEX TO CULTURE STAT 06/17/2024 1:11 PM PUBLIC SERVICE DIRECTOR TRANSFUSE RED BLOOD CELLS (UNIT) STAT 06/17/2024 10:26 AM PUBLIC SERVICE DIRECTOR PREPARE RED BLOOD CELLS (UNIT) STAT 06/17/2024 9:12 AM PUBLIC SERVICE DIRECTOR TRANSFERRIN Add-On 06/17/2024 6:16 AM PUBLIC SERVICE DIRECTOR IRON AND IRON BINDING CAPACITY Add-On 06/17/2024 6:16 AM PUBLIC SERVICE DIRECTOR BASIC METABOLIC PANEL STAT 06/17/2024 6:16 AM PUBLIC SERVICE DIRECTOR CBC WITH PLATELETS STAT 06/17/2024 6: 16 AM PUBLIC SERVICE DIRECTOR TROPONIN T, HIGH SENSITIVITY STAT 06/16/2024 9:33 PM PUBLIC SERVICE DIRECTOR XR CHEST 2 VIEWS STAT 06/16/2024 6:09 PM PUBLIC SERVICE DIRECTOR RBC AND PLATELET MORPHOLOGY STAT 06/16/2024 5:37 PM PUBLIC SERVICE DIRECTOR CBC WITH PLATELETS AND DIFFERENTIAL STAT 06/16/2024 5:37 PM PUBLIC SERVICE DIRECTOR TYPE AND SCREEN, ADULT STAT 5:37 PM PUBLIC SERVICE DIRECTOR TROPONIN T, HIGH SENSITIVITY STAT 06/16/2024 5:37 PM PUBLIC SERVICE DIRECTOR CBC WITH PLATELETS & DIFFERENTIAL STAT 06/16/2024 5:37 PM PUBLIC SERVICE DIRECTOR PROLACTIN STAT 06/16/2024 5:37 PM PUBLIC SERVICE DIRECTOR COMPREHENSIVE METABOLIC PANEL STAT 06/16/2024 5:37 PM PUBLIC SERVICE DIRECTOR BLOOD CULTURE STAT 06/16/2024 5:37 PM PUBLIC SERVICE DIRECTOR ABO/RH TYPE AND SCREEN STAT 5 5:37 PM PUBLIC SERVICE DIRECTOR EKG 12-LEAD, TRACING ONLY STAT 06/16/2024 4:55 PM PUBLIC SERVICE DIRECTOR documented in this encounter Results * (ABNORMAL) CBC with platelets and differential (06/20/2024 5:48 AM PUBLIC SERVICE DIRECTOR) [facility] WBC Count 9.3 4.0 - 11.0 10e3/uL 06/20/2024 6:05 AM PUBLIC SERVICE DIRECTOR [facility] RBC Count 2.54(L) 3.80 - 5.20 10e6/uL 06/20/2024 6:05 AM PUBLIC SERVICE DIRECTOR [facility] Hemoglobin 8.0(L) 11.7 - 15.7 g/dL 06/20/2024 6:05 AM PUBLIC SERVICE DIRECTOR [facility] Hematocrit 23.2(L) 35.0 - 47.0 % 06/20/2024 6:05 AM PUBLIC SERVICE DIRECTOR [facility] MCV 91 78 - 100 fL 06/20/2024 6:05 AM PUBLIC SERVICE DIRECTOR [facility] MCH 31.5 26.5 - 33.0 pg 06/20/2024 6:05 AM PUBLIC SERVICE DIRECTOR [facility] MCHC 34.5 31.5 - 36.5 g/dL 06/20/2024 6:05 AM PUBLIC SERVICE DIRECTOR [facility] RDW 18.4(H) 10.0 - 15.0 % 06/20/2024 6:05 AM PUBLIC SERVICE DIRECTOR [facility] Platelet Count 435 150 - 450 10e3/uL 06/20/2024 6:05 AM PUBLIC SERVICE DIRECTOR [facility] % Neutrophils 47 % 06/20/2024 6:05 AM PUBLIC SERVICE DIRECTOR [facility] % Lymphocytes 43 % 06/20/2024 6:05 AM PUBLIC SERVICE DIRECTOR [facility] % Monocytes 6 % 06/20/2024 6:05 AM PUBLIC SERVICE DIRECTOR [facility] % Eosinophils 3 % 06/20/2024 6:05 AM PUBLIC SERVICE DIRECTOR [facility] % Basophils 1 % 06/20/2024 6:05 AM PUBLIC SERVICE DIRECTOR [facility] % Immature Granulocytes 1 % 06/20/2024 6:05 AM PUBLIC SERVICE DIRECTOR [facility] NRBCs per 100 WBC 1(H) <1 /100 025 6:05 AM PUBLIC SERVICE DIRECTOR [facility] Absolute Neutrophils 4.4 1.6 - 8.3 10e3/uL 06/20/2024 6:05 AM PUBLIC SERVICE DIRECTOR [facility] Absolute Lymphocytes 4.0 0.8 - 5.3 10e3/uL 06/20/2024 6:05 AM PUBLIC SERVICE DIRECTOR [facility] Absolute Monocytes 0.5 0.0 - 1.3 10e3/uL 06/20/2024 6:05 AM PUBLIC SERVICE DIRECTOR [facility] Absolute Eosinophils 0.3 0.0 - 0.7 10e3/uL 06/20/2024 6:05 AM PUBLIC SERVICE DIRECTOR [facility] Absolute Basophils 0.1 0.0 - 0.2 10e3/uL 06/20/2024 6:05 AM PUBLIC SERVICE DIRECTOR [facility] Absolute Immature Granulocytes 0.1 <=0.4 10e3/uL 06/20/2024 6:05 AM PUBLIC SERVICE DIRECTOR [facility] Absolute NRBCs 0.1 10e3/uL 06/20/2024 6:05 AM PUBLIC SERVICE DIRECTOR [facility] Blood (Portacath) IVAD (Port) / Unknown 06/20/2024 5:48 AM PUBLIC SERVICE DIRECTOR 06/20/2024 5:55 AM PUBLIC SERVICE DIRECTOR Rl Elias MD LAB - BLOOD ORDER SYD Final Result Performing Organization Address [facility] Co de Phone Number [facility] [place] [facility] [address] [facility], [address] * (ABNORMAL) Reticulocyte count (06/20/2024 5:48 AM PUBLIC SERVICE DIRECTOR) % Reticulocyte 9.6(H) 0.5 - 2.0 % 06/20/2024 6:37 AM PUBLIC SERVICE DIRECTOR [facility] Absolute Reticulocyte 0.236(H) 0.025 - 0.095 10e6/uL 06/20/2024 6:37 AM PUBLIC SERVICE DIRECTOR [facility] Blood (Portacath) IVAD (Port) / Unknown 06/20/2024 5:48 AM PUBLIC SERVICE DIRECTOR 06/20/2024 5:55 AM PUBLIC SERVICE DIRECTOR Rl Elias MD LAB - BLOOD ORDER SYD Final Result Performing Organization Address City/[facility] Co de Phone Number [facility] [place] [facility] [address] [facility], [address] * (ABNORMAL) Comprehensive metabolic panel (06/20/2024 5:48 AM PUBLIC SERVICE DIRECTOR) Sodium 133(L) 135 - 145 mmol/L 06/20/2024 6:35 AM PUBLIC SERVICE DIRECTOR [facility] Potassium 4.6 3.4 - 5.3 mmol/L 06/20/2024 6:35 AM PUBLIC SERVICE DIRECTOR [facility] Carbon Dioxide (CO2) 21(L) 22 - 29 mmol/L 06/20/2024 6:35 AM PUBLIC SERVICE DIRECTOR [facility] Anion Gap 8 7 - 15 mmol/L 06/20/2024 6:35 AM PUBLIC SERVICE DIRECTOR [facility] Urea Nitrogen 14.6 6.0 - 20.0 mg/dL 06/20/2024 6:35 AM PUBLIC SERVICE DIRECTOR [facility] Creatinine 0.66 0.51 - 0.95 mg/dL 06/20/2024 6:35 AM PUBLIC SERVICE DIRECTOR [facility] GFR Estimate >90 >60 mL/min/1.7 3m2 06/20/2024 6:35 AM PUBLIC SERVICE DIRECTOR [facility] Comment:eGFR calculated us2020 CKD-EPI equation. Calcium 8.7(L) 8.8 - 10.4 mg/dL 06/20/2024 6:35 AM PUBLIC SERVICE DIRECTOR [facility] Chloride 104 98 - 107 mmol/L 06/20/2024 6:35 AM PUBLIC SERVICE DIRECTOR [facility] Glucose 100(H) 70 - 99 mg/dL 06/20/2024 6:35 AM PUBLIC SERVICE DIRECTOR [facility] Alkaline Phosphatase 98 40 - 150 U/L 06/20/2024 6:35 AM PUBLIC SERVICE DIRECTOR [facility] AST 67(H) 0 - 45 U/L 06/20/2024 6:35 AM PUBLIC SERVICE DIRECTOR [facility] ALT 40 0 - 50 U/L 06/20/2024 6:35 AM PUBLIC SERVICE DIRECTOR [facility] Protein Total 7.2 6.4 - 8.3 g/dL 06/20/2024 6:35 AM PUBLIC SERVICE DIRECTOR [facility] Albumin 3.9 3.5 - 5.2 g/dL 06/20/2024 6:35 AM PUBLIC SERVICE DIRECTOR [facility] Bilirubin Total 1.5(H) <=1.2 mg/dL 06/20/2024 6:35 AM PUBLIC SERVICE DIRECTOR [facility] Blood (Portacath) IVAD (Port) / Unknown 06/20/2024 5:48 AM PUBLIC SERVICE DIRECTOR 06/20/2024 5:55 AM PUBLIC SERVICE DIRECTOR us Rl Elias MD LAB - BLOOD ORDER SYD Final Result [facility] [place] [facility] [address] [facility], [address] [place] [address] * (ABNORMAL) Lactate Dehydrogenase (06/20/2024 5:48 AM PUBLIC SERVICE DIRECTOR) Lactate Dehydrogenase 571(H) 0 - 250 U/L 06/20/2024 6:35 AM PUBLIC SERVICE DIRECTOR [facility] Blood (Portacath) IVAD (Port) / Unknown 06/20/2024 5:48 AM PUBLIC SERVICE DIRECTOR 06/20/2024 5:55 AM PUBLIC SERVICE DIRECTOR Rl Elias MD LAB - BLOOD ORDER SYD Final Result [facility] [place] [facility] [address] [facility], [address] [place] [address] * (ABNORMAL) RBC and Platelet Morphology (06/19/2024 9:30 AM PUBLIC SERVICE DIRECTOR) Pathologist [facility] RBC Morphology Confirmed RBC Indices 06/19/2024 11:43 AM PUBLIC SERVICE DIRECTOR [facility] Platelet Assessment Automated Count Confirmed. Giant platelets are present.(A) Automated Count Confirmed. Platelet morphology is normal. 06/19/2024 11:43 AM PUBLIC SERVICE DIRECTOR [facility] Giant Platelets Slight(A) None Seen 11:43 AM PUBLIC SERVICE DIRECTOR [facility] Elliptocytes None Seen None Seen 06/19/2024 11:43 AM PUBLIC SERVICE DIRECTOR [facility] Polychromasia Slight(A) None Seen 06/19/2024 11:43 AM PUBLIC SERVICE DIRECTOR [facility] RBC Fragments Slight(A) None Seen 06/19/2024 11:43 AM PUBLIC SERVICE DIRECTOR [facility] Reactive Lymphocytes Present(A) None Seen 06/19/2024 11:43 AM PUBLIC SERVICE DIRECTOR [facility] Sickle Cells Moderate(A) None Seen 06/19/2024 11:43 AM PUBLIC SERVICE DIRECTOR [facility] Smudge Cells Present(A) None Seen 06/19/2024 11:43 AM PUBLIC SERVICE DIRECTOR [facility] Target Cells Moderate(A) None Seen 06/19/2024 11:43 AM PUBLIC SERVICE DIRECTOR [facility] Blood CENTRAL VENOUS CATHETER / Unknown VAD(CVC, PICC) / Unknown 06/19/2024 9:30 AM PUBLIC SERVICE DIRECTOR 06/19/2024 9:42 AM PUBLIC SERVICE DIRECTOR Rl Elias MD LAB - BLOOD ORDER SYD Final Result [facility] [place] [facility] [address] [facility], [address] [place] [address], [facility] * (ABNORMAL) CBC with platelets and differential (06/19/2024 9:30 AM PUBLIC SERVICE DIRECTOR) WBC Count 9.9 4.0 - 11.0 10e3/uL 06/19/2024 11:43 AM PUBLIC SERVICE DIRECTOR [facility] RBC Count 2.55(L) 3.80 - 5.20 10e6/uL 06/19/2024 11:43 AM PUBLIC SERVICE DIRECTOR [facility] Hemoglobin 8.1(L) 11.7 - 15.7 g/dL 06/19/2024 11:43 AM PUBLIC SERVICE DIRECTOR [facility] Hematocrit 24.0(L) 35.0 - 47.0 % 06/19/2024 11:43 AM PUBLIC SERVICE DIRECTOR [facility] MCV 94 78 - 100 fL 06/19/2024 11:43 AM PUBLIC SERVICE DIRECTOR [facility] MCH 31.8 26.5 - 33.0 pg 06/19/2024 11:43 AM PUBLIC SERVICE DIRECTOR [facility] MCHC 33.8 31.5 - 36.5 g/dL 06/19/2024 11:43 AM PUBLIC SERVICE DIRECTOR [facility] RDW 18.4(H) 10.0 - 15.0 % 06/19/2024 11:43 AM PUBLIC SERVICE DIRECTOR [facility] Platelet Count 471(H) 150 - 450 10e3/uL 06/19/2024 11:43 AM PUBLIC SERVICE DIRECTOR [facility] % Neutrophils 62 % 06/19/2024 11:43 AM PUBLIC SERVICE DIRECTOR [facility] % Lymphocytes 28 % 06/19/2024 11:43 AM PUBLIC SERVICE DIRECTOR [facility] % Monocytes 6 % 06/19/2024 11:43 AM PUBLIC SERVICE DIRECTOR [facility] % Eosinophils 3 % 06/19/2024 11:43 AM PUBLIC SERVICE DIRECTOR [facility] % Basophils 1 % 06/19/2024 11:43 AM PUBLIC SERVICE DIRECTOR [facility] % Immature Granulocytes 1 % 06/19/2024 11:43 AM PUBLIC SERVICE DIRECTOR [facility] NRBCs per 100 WBC 4(H) <1 /100 025 11:43 AM PUBLIC SERVICE DIRECTOR [facility] Absolute Neutrophils 6.1 1.6 - 8.3 10e3/uL 06/19/2024 11:43 AM PUBLIC SERVICE DIRECTOR [facility] Absolute Lymphocytes 2.7 0.8 - 5.3 10e3/uL 06/19/2024 11:43 AM PUBLIC SERVICE DIRECTOR [facility] Absolute Monocytes 0.6 0.0 - 1.3 10e3/uL 06/19/2024 11:43 AM PUBLIC SERVICE DIRECTOR [facility] Absolute Eosinophils 0.3 0.0 - 0.7 10e3/uL 06/19/2024 11:43 AM PUBLIC SERVICE DIRECTOR [facility] Absolute Basophils 0.1 0.0 - 0.2 10e3/uL 06/19/2024 11:43 AM PUBLIC SERVICE DIRECTOR [facility] Absolute Immature Granulocytes 0.1 <=0.4 10e3/uL 06/19/2024 11:43 AM PUBLIC SERVICE DIRECTOR [facility] Absolute NRBCs 0.4 10e3/uL 06/19/2024 11:43 AM PUBLIC SERVICE DIRECTOR [facility] Blood CENTRAL VENOUS CATHETER / Unknown VAD(CVC, PICC) / Unknown 06/19/2024 9:30 AM PUBLIC SERVICE DIRECTOR 06/19/2024 9:42 AM PUBLIC SERVICE DIRECTOR Rl Elias MD LAB - BLOOD ORDER SYD Final Result [facility] [place] [facility] [address] [facility], [address] [place] [address] * (ABNORMAL) Reticulocyte count (06/19/2024 9:30 AM PUBLIC SERVICE DIRECTOR) Pathologist [facility] % Reticulocyte 9.2(H) 0.5 - 2.0 % 06/19/2024 9:48 AM PUBLIC SERVICE DIRECTOR [facility] Absolute Reticulocyte 0.234(H) 0.025 - 0.095 10e6/uL 06/19/2024 9:48 AM PUBLIC SERVICE DIRECTOR [facility] Blood CENTRAL VENOUS CATHETER / Unknown VAD(CVC, PICC) / Unknown 06/19/2024 9:30 AM PUBLIC SERVICE DIRECTOR 06/19/2024 9:42 AM PUBLIC SERVICE DIRECTOR Rl Elias MD LAB - BLOOD ORDER SYD Final Result [facility] [place] [facility] [address] [facility], [address] [place] [address], [facility] * (ABNORMAL) Comprehensive metabolic panel (06/19/2024 9:30 AM PUBLIC SERVICE DIRECTOR) Sodium 135 135 - 145 mmol/L 06/19/2024 10:13 AM PUBLIC SERVICE DIRECTOR [facility] Potassium 4.4 3.4 - 5.3 mmol/L 06/19/2024 10:13 AM PUBLIC SERVICE DIRECTOR [facility] Carbon Dioxide (CO2) 21(L) 22 - 29 mmol/L 06/19/2024 10:13 AM PUBLIC SERVICE DIRECTOR [facility] Anion Gap 9 7 - 15 mmol/L 06/19/2024 10:13 AM PUBLIC SERVICE DIRECTOR [facility] Urea Nitrogen 12.3 6.0 - 20.0 mg/dL 06/19/2024 10:13 AM PUBLIC SERVICE DIRECTOR [facility] Creatinine 0.68 0.51 - 0.95 mg/dL 06/19/2024 10:13 AM PUBLIC SERVICE DIRECTOR [facility] GFR Estimate >90 >60 mL/min/1.7 3m2 06/19/2024 10:13 AM PUBLIC SERVICE DIRECTOR [facility] Comment:eGFR calculated 2020 CKD-EPI equation. Calcium 8.9 8.8 - 10.4 mg/dL 06/19/2024 10:13 AM PUBLIC SERVICE DIRECTOR [facility] Chloride 105 98 - 107 mmol/L 06/19/2024 10:13 AM PUBLIC SERVICE DIRECTOR [facility] Glucose 100(H) 70 - 99 mg/dL 06/19/2024 10:13 AM PUBLIC SERVICE DIRECTOR [facility] Alkaline Phosphatase 94 40 - 150 U/L 06/19/2024 10:13 AM PUBLIC SERVICE DIRECTOR [facility] AST 54(H) 0 - 45 U/L 06/19/2024 10:13 AM PUBLIC SERVICE DIRECTOR [facility] ALT 31 0 - 50 U/L 06/19/2024 10:13 AM PUBLIC SERVICE DIRECTOR [facility] Protein Total 7.1 6.4 - 8.3 g/dL 06/19/2024 10:13 AM PUBLIC SERVICE DIRECTOR [facility] Albumin 3.9 3.5 - 5.2 g/dL 06/19/2024 10:13 AM PUBLIC SERVICE DIRECTOR [facility] Bilirubin Total 1.5(H) <=1.2 mg/dL 06/19/2024 10:13 AM PUBLIC SERVICE DIRECTOR [facility] Blood CENTRAL VENOUS CATHETER / Unknown VAD(CVC, PICC) / Unknown 06/19/2024 9:30 AM PUBLIC SERVICE DIRECTOR 06/19/2024 9:41 AM PUBLIC SERVICE DIRECTOR Rl Elias MD LAB - BLOOD ORDER SYD Final Result LABORATORY [facility] [place] [facility] [address] [facility], [address] * (ABNORMAL) Lactate Dehydrogenase (06/19/2024 9:30 AM PUBLIC SERVICE DIRECTOR) Lactate Dehydrogenase 507(H) 0 - 250 U/L 06/19/2024 10:13 AM PUBLIC SERVICE DIRECTOR LABORATORY Blood CENTRAL VENOUS CATHETER / Unknown VAD(CVC, PICC) / Unknown 06/19/2024 9:30 AM PUBLIC SERVICE DIRECTOR 06/19/2024 9:41 AM PUBLIC SERVICE DIRECTOR Rl Elias MD LAB - BLOOD ORDER SYD Final Result [facility]ATORY [facility] [place] [facility] Lab [address] [facility], [address] * (ABNORMAL) Platelet count (06/19/2024 12:17 AM PUBLIC SERVICE DIRECTOR) Platelet Count 467(H) 150 - 450 10e3/uL 06/19/2024 12:44 AM PUBLIC SERVICE DIRECTOR LABORATORY Blood BLOOD SPECIMEN / Unknown Venipuncture / Unknown 06/19/2024 12:17 AM PUBLIC SERVICE DIRECTOR 06/19/2024 12:26 AM PUBLIC SERVICE DIRECTOR Laquita Kelley MD LAB - BLOOD ORDERABLES Final Re sult LABORATORY [facility] [place] [facility] [address] [facility], [address] [phone] * Creatinine (06/19/2024 12:17 AM PUBLIC SERVICE DIRECTOR) Creatinine 0.72 0.51 - 0.95 mg/dL 06/19/2024 12:51 AM PUBLIC SERVICE DIRECTOR [facility] GFR Estimate >90 >60 mL/min/1.7 3m2 06/19/2024 12:51 AM PUBLIC SERVICE DIRECTOR [facility] Comment:eGFR calculated usin 2020 CKD-EPI equation. Blood BLOOD SPECIMEN / Unknown Venipuncture / Unknown 06/19/2024 12:17 AM PUBLIC SERVICE DIRECTOR 06/19/2024 12:26 AM PUBLIC SERVICE DIRECTOR Laquita Kelley MD LAB - BLOOD ORDERABLES Final Re sult [facility] [place] [facility] [address] [facility], [address] [place] [phone] * (ABNORMAL) Manual Differential (06/18/2024 8:24 AM PUBLIC SERVICE DIRECTOR) % Neutrophils 52 % 06/18/2024 9:35 AM PUBLIC SERVICE DIRECTOR [facility] % Lymphocytes 39 % 06/18/2024 9:35 AM PUBLIC SERVICE DIRECTOR [facility] % Monocytes 7 % 06/18/2024 9:35 AM PUBLIC SERVICE DIRECTOR [facility] % Eosinophils 3 % 06/18/2024 9:35 AM PUBLIC SERVICE DIRECTOR [facility] % Basophils 0 % 06/18/2024 9:35 AM PUBLIC SERVICE DIRECTOR [facility] NRBCs per 100 WBC 13(H) <=0 % 06/18/2024 9:35 AM PUBLIC SERVICE DIRECTOR [facility] Absolute Neutrophils 5.6 1.6 - 8.3 10e3/uL 06/18/2024 9:35 AM PUBLIC SERVICE DIRECTOR [facility] Absolute Lymphocytes 4.2 0.8 - 5.3 10e3/uL 06/18/2024 9:35 AM PUBLIC SERVICE DIRECTOR [facility] Absolute Monocytes 0.7 0.0 - 1.3 10e3/uL 06/18/2024 9:35 AM PUBLIC SERVICE DIRECTOR [facility] Absolute Eosinophils 0.3 0.0 - 0.7 10e3/uL 06/18/2024 9:35 AM PUBLIC SERVICE DIRECTOR [facility] Absolute Basophils 0.0 0.0 - 0.2 10e3/uL 06/18/2024 9:35 AM PUBLIC SERVICE DIRECTOR [facility] Absolute NRBCs 1.4(H) <=0.0 10e3/uL 025 9:35 AM PUBLIC SERVICE DIRECTOR [facility] RBC Morphology Confirmed RBC Indices 06/18/2024 9:35 AM PUBLIC SERVICE DIRECTOR [facility] Platelet Assessment Automated Count Confirmed. Platelet morphology is normal. Automated Count Confirmed. Platelet morphology is normal. 06/18/2024 9:35 AM PUBLIC SERVICE DIRECTOR [facility] RBC Fragments Slight(A) None Seen 06/18/2024 9:35 AM PUBLIC SERVICE DIRECTOR [facility] Polychromasia Slight(A) None Seen 06/18/2024 9:35 AM PUBLIC SERVICE DIRECTOR [facility] Sickle Cells Moderate(A) None Seen 06/18/2024 9:35 AM PUBLIC SERVICE DIRECTOR [facility] Blood BLOOD SPECIMEN / Unknown Venipuncture / Unknown 06/18/2024 8:24 AM PUBLIC SERVICE DIRECTOR 06/18/2024 8:32 AM PUBLIC SERVICE DIRECTOR us Rl Elias MD LAB - BLOOD ORDER SYD Final Result [facility] [place] [facility] [address] [facility], [address] [place] [phone] * (ABNORMAL) CBC with platelets and differential (06/18/2024 8:24 AM PUBLIC SERVICE DIRECTOR) WBC Count 10.8 4.0 - 11.0 10e3/uL 06/18/2024 9:24 AM PUBLIC SERVICE DIRECTOR [facility] RBC Count 2.51(L) 3.80 - 5.20 10e6/uL 06/18/2024 9:24 AM PUBLIC SERVICE DIRECTOR [facility] Hemoglobin 8.1(L) 11.7 - 15.7 g/dL 06/18/2024 9:24 AM PUBLIC SERVICE DIRECTOR [facility] Hematocrit 23.1(L) 35.0 - 47.0 % 06/18/2024 9:24 AM PUBLIC SERVICE DIRECTOR [facility] MCV 92 78 - 100 fL 06/18/2024 9:24 AM PUBLIC SERVICE DIRECTOR [facility] MCH 32.3 26.5 - 33.0 pg 06/18/2024 9:24 AM PUBLIC SERVICE DIRECTOR [facility] MCHC 35.1 31.5 - 36.5 g/dL 06/18/2024 9:24 AM PUBLIC SERVICE DIRECTOR [facility] RDW 18.7(H) 10.0 - 15.0 % 06/18/2024 9:24 AM PUBLIC SERVICE DIRECTOR [facility] Platelet Count 452(H) 150 - 450 10e3/uL 06/18/2024 9:24 AM PUBLIC SERVICE DIRECTOR [facility] Blood BLOOD SPECIMEN / Unknown Venipuncture / Unknown 06/18/2024 8:24 AM PUBLIC SERVICE DIRECTOR 06/18/2024 8:32 AM PUBLIC SERVICE DIRECTOR Rl Elias MD LAB - BLOOD ORDER SYD Final Result [facility] [place] [facility] [address] [facility], [address] * (ABNORMAL) Reticulocyte count (06/18/2024 8:24 AM PUBLIC SERVICE DIRECTOR) % Reticulocyte 10.0(H) 0.5 - 2.0 % 06/18/2024 8:38 AM PUBLIC SERVICE DIRECTOR [facility] Absolute Reticulocyte 0.250(H) 0.025 - 0.095 10e6/uL 06/18/2024 8:38 AM PUBLIC SERVICE DIRECTOR [facility] Blood BLOOD SPECIMEN / Unknown Venipuncture / Unknown 06/18/2024 8:24 AM PUBLIC SERVICE DIRECTOR 06/18/2024 8:32 AM PUBLIC SERVICE DIRECTOR Rl Elias MD LAB - BLOOD ORDER SYD Final Result [facility] [place] [facility] [address] [facility], [address] [id number] * (ABNORMAL) Comprehensive metabolic panel (06/18/2024 8:24 AM PUBLIC SERVICE DIRECTOR) Sodium 133(L) 135 - 145 mmol/L 06/18/2024 9:02 AM PUBLIC SERVICE DIRECTOR [facility] Potassium 4.3 3.4 - 5.3 mmol/L 06/18/2024 9:02 AM PUBLIC SERVICE DIRECTOR [facility] Carbon Dioxide (CO2) 21(L) 22 - 29 mmol/L 06/18/2024 9:02 AM PUBLIC SERVICE DIRECTOR [facility] Anion Gap 7 7 - 15 mmol/L 06/18/2024 9:02 AM PUBLIC SERVICE DIRECTOR [facility] Urea Nitrogen 9.2 6.0 - 20.0 mg/dL 06/18/2024 9:02 AM PUBLIC SERVICE DIRECTOR [facility] Creatinine 0.65 0.51 - 0.95 mg/dL 06/18/2024 9:02 AM PUBLIC SERVICE DIRECTOR [facility] GFR Estimate >90 >60 mL/min/1.7 3m2 06/18/2024 9:02 AM PUBLIC SERVICE DIRECTOR [facility] Comment:eGFR calculated 2020 CKD-EPI equation. Calcium 8.7(L) 8.8 - 10.4 mg/dL 06/18/2024 9:02 AM PUBLIC SERVICE DIRECTOR [facility] Chloride 105 98 - 107 mmol/L 06/18/2024 9:02 AM PUBLIC SERVICE DIRECTOR [facility] Glucose 92 70 - 99 mg/dL 06/18/2024 9:02 AM PUBLIC SERVICE DIRECTOR [facility] Alkaline Phosphatase 86 40 - 150 U/L 06/18/2024 9:02 AM PUBLIC SERVICE DIRECTOR [facility] AST 45 0 - 45 U/L 06/18/2024 9:02 AM PUBLIC SERVICE DIRECTOR [facility] ALT 27 0 - 50 U/L 06/18/2024 9:02 AM PUBLIC SERVICE DIRECTOR [facility] Protein Total 7.0 6.4 - 8.3 g/dL 06/18/2024 9:02 AM PUBLIC SERVICE DIRECTOR [facility] Albumin 3.9 3.5 - 5.2 g/dL 06/18/2024 9:02 AM PUBLIC SERVICE DIRECTOR [facility] Bilirubin Total 1.4(H) <=1.2 mg/dL 06/18/2024 9:02 AM PUBLIC SERVICE DIRECTOR [facility] Blood BLOOD SPECIMEN / Unknown Venipuncture / Unknown 06/18/2024 8:24 AM PUBLIC SERVICE DIRECTOR 06/18/2024 8:32 AM PUBLIC SERVICE DIRECTOR us Rl Elias MD LAB - BLOOD ORDER SYD Final Result [facility] [place] [facility] [address] [facility], [address] [place] [address] * (ABNORMAL) Lactate Dehydrogenase (06/18/2024 8:24 AM PUBLIC SERVICE DIRECTOR) Lactate Dehydrogenase 491(H) 0 - 250 U/L 06/18/2024 9:02 AM PUBLIC SERVICE DIRECTOR [facility] Blood BLOOD SPECIMEN / Unknown Venipuncture / Unknown 06/18/2024 8:24 AM PUBLIC SERVICE DIRECTOR 06/18/2024 8:32 AM PUBLIC SERVICE DIRECTOR Rl Elias MD LAB - BLOOD ORDER SYD Final Result [facility] [place] [facility] [address] [facility], [address] [place] [address] * Transfuse red blood cells (unit), Sickle Cell (Hgb S) Negative (06/17/2024 2:33 PM PUBLIC SERVICE DIRECTOR) Drake Nina MD BLOOD TRANSFUSION ORDERABLES Final Result * Transfuse red blood cells (unit), 1 Units, Sickle Cell (Hgb S) Negative (06/17/2024 2:33 PM PUBLIC SERVICE DIRECTOR) Drake Nina MD BLOOD TRANSFUSION ORDERABLES Final Result * (ABNORMAL) UA with Microscopic reflex to Culture (06/17/2024 1:11 PM PUBLIC SERVICE DIRECTOR) Color Urine Light Yellow Colorless, Straw, Light Yellow, Yellow 06/17/2024 1:48 PM PUBLIC SERVICE DIRECTOR [facility] Appearance Urine Clear Clear 06/17/19 25 1:48 PM PUBLIC SERVICE DIRECTOR [facility] Glucose Urine Negative Negative mg/dL 06/17/2024 1:48 PM PUBLIC SERVICE DIRECTOR [facility] Bilirubin Urine Negative Negative 1:48 PM PUBLIC SERVICE DIRECTOR [facility] Ketones Urine Negative Negative mg/dL 06/17/2024 1:48 PM PUBLIC SERVICE DIRECTOR [facility] Specific [place] Urine 1.009 1.003 - 1.035 06/17/2024 1:48 PM PUBLIC SERVICE DIRECTOR [facility] Blood Urine Trace(A) Negative 06/17/2024 1:48 PM PUBLIC SERVICE DIRECTOR [facility] pH Urine 6.5 5.0 - 7.0 06/17/2024 1:48 PM PUBLIC SERVICE DIRECTOR [facility] Protein Albumin Urine Negative Negative mg/dL 06/17/2024 1:48 PM PUBLIC SERVICE DIRECTOR [facility] Urobilinogen Urine Normal Normal, 2.0 mg/dL 06/17/2024 1:48 PM PUBLIC SERVICE DIRECTOR [facility] Nitrite Urine Negative Negative 06/17/2024 1:48 PM PUBLIC SERVICE DIRECTOR [facility] Leukocyte Esterase Urine Small(A) Negative 06/17/2024 1:48 PM PUBLIC SERVICE DIRECTOR [facility] RBC Urine <1 <=2 /HPF 06/17/2024 1:48 PM PUBLIC SERVICE DIRECTOR [facility] WBC Urine <1 <=5 /HPF 06/17/2024 1:48 PM PUBLIC SERVICE DIRECTOR [facility] Squamous Epithelials Urine 3(H) <=1 /HPF 06/17/2024 1:48 PM PUBLIC SERVICE DIRECTOR [facility] Urine URINE SPECIMEN OBTAINED BY CLEAN CATCH PROCEDURE / Unknown Non-blood Collection / Unknown 06/17/2024 1:11 PM PUBLIC SERVICE DIRECTOR 06/17/2024 1:38 PM PUBLIC SERVICE DIRECTOR Narrative [facility] - 06/17/2024 1:48 PM PUBLIC SERVICE DIRECTOR Urine Culture not indicated Rl Elias MD LAB - URINE ORDER SYD Final Result [facility] [place] [facility] [address] [facility], [address] [phone] * Prepare red blood cells (unit) (06/17/2024 9:12 AM PUBLIC SERVICE DIRECTOR) Blood Component Type Red Blood Cells [facility] Product Code [id number] [facility] BLOO D BANK Unit Status Transfused [facility] D [facility] Unit Number [id number] U[facility] B LOOD BANK CROSSMATCH COMPATIBLE [facility]U BLOOD BANK CODING SYSTEM [id number] UU BLO OD BANK ISSUE DATE AND TIME [id number] [facility] BLOOD BANK UNIT ABO/RH A+ UU BLOOD BANK UNIT TYPE ISBT 6200 UU BL OOD BANK 06/17/2024 9:12 AM PUBLIC SERVICE DIRECTOR Drake Nina MD BLOOD BANK PRODUCT ORDERABLES Final Result Performing Organization Address City/[facility]/ZIP Co de Phone Number [facility] BLOOD BANK [address] [place] [id number] * (ABNORMAL) Transferrin (06/17/2024 6:16 AM PUBLIC SERVICE DIRECTOR) Pathologist [facility] Transferrin 100.0(L) 200.0 - 360.0 mg/dL 06/17/2024 9:36 AM PUBLIC SERVICE DIRECTOR [facility] Blood VENOUS LINE / Unknown IVAD (Port) / Unknown 06/17/2024 6:16 AM PUBLIC SERVICE DIRECTOR 06/17/2024 6:27 AM PUBLIC SERVICE DIRECTOR Drake Nina MD LAB - BLOOD ORDERABLES Final Result [facility] [place] [facility] [address] [facility], [address] * Iron and iron binding capacity (06/17/2024 6:16 AM PUBLIC SERVICE DIRECTOR) [facility] Iron 123 37 - 145 ug/dL 06/17/2024 10:02 AM PUBLIC SERVICE DIRECTOR [facility] Iron Binding Capacity 06/17/2024 10:02 AM PUBLIC SERVICE DIRECTOR [facility] Comment:Unable to calculate: UIBC or Iron value is outside detectable level. Iron Sat Index 06/17/2024 10:02 AM PUBLIC SERVICE DIRECTOR [facility] Comment:Unable to calculate: UIBC or Iron value is outside detectable level. Blood VENOUS LINE / Unknown IVAD (Port) / Unknown 06/17/2024 6:16 AM PUBLIC SERVICE DIRECTOR 06/17/2024 6:27 AM PUBLIC SERVICE DIRECTOR Drake Nina MD LAB - BLOOD ORDERABLES Final Result [facility] [place] [facility] Lab [address] [facility], [address] [phone] * (ABNORMAL) CBC with platelets (06/17/2024 6:16 AM PUBLIC SERVICE DIRECTOR) Pathologist [facility] WBC Count 14.6(H) 4.0 - 11.0 10e3/uL 06/17/2024 6:38 AM PUBLIC SERVICE DIRECTOR [facility] RBC Count 1.97(L) 3.80 - 5.20 10e6/uL 06/17/2024 6:38 AM PUBLIC SERVICE DIRECTOR [facility] Hemoglobin 6.3(LL) 11.7 - 15.7 g/dL 06/17/2024 6:38 AM PUBLIC SERVICE DIRECTOR [facility] Hematocrit 17.9(L) 35.0 - 47.0 % 06/17/2024 6:38 AM PUBLIC SERVICE DIRECTOR [facility] MCV 91 78 - 100 fL 06/17/2024 6:38 AM PUBLIC SERVICE DIRECTOR [facility] MCH 32.0 26.5 - 33.0 pg 06/17/2024 6:38 AM PUBLIC SERVICE DIRECTOR [facility] MCHC 35.2 31.5 - 36.5 g/dL 06/17/2024 6:38 AM PUBLIC SERVICE DIRECTOR [facility] RDW 20.1(H) 10.0 - 15.0 % 06/17/2024 6:38 AM PUBLIC SERVICE DIRECTOR [facility] Platelet Count 468(H) 150 - 450 10e3/uL 06/17/2024 6:38 AM PUBLIC SERVICE DIRECTOR [facility] Blood VENOUS LINE / Unknown IVAD (Port) / Unknown 06/17/2024 6:16 AM PUBLIC SERVICE DIRECTOR 06/17/2024 6:27 AM PUBLIC SERVICE DIRECTOR us Laquita Kelley MD LAB - BLOOD ORDERABLES Final Re sult [facility] [place] [facility] Lab [address] [facility], [address] [phone] * (ABNORMAL) Basic metabolic panel (06/17/2024 6:16 AM PUBLIC SERVICE DIRECTOR) Sodium 134(L) 135 - 145 mmol/L 06/17/2024 6:55 AM PUBLIC SERVICE DIRECTOR [facility] Potassium 4.6 3.4 - 5.3 mmol/L 06/17/2024 6:55 AM PUBLIC SERVICE DIRECTOR [facility] Chloride 105 98 - 107 mmol/L 06/17/2024 6:55 AM PUBLIC SERVICE DIRECTOR [facility] Carbon Dioxide (CO2) 20(L) 22 - 29 mmol/L 06/17/2024 6:55 AM PUBLIC SERVICE DIRECTOR [facility] Anion Gap 9 7 - 15 mmol/L 06/17/2024 6:55 AM PUBLIC SERVICE DIRECTOR [facility] Urea Nitrogen 16.1 6.0 - 20.0 mg/dL 06/17/2024 6:55 AM PUBLIC SERVICE DIRECTOR [facility] Creatinine 0.90 0.51 - 0.95 mg/dL 06/17/2024 6:55 AM PUBLIC SERVICE DIRECTOR [facility] GFR Estimate 88 >60 mL/min/1.7 3m2 06/17/2024 6:55 AM PUBLIC SERVICE DIRECTOR [facility] Comment:eGFR calculated usin 2020 CKD-EPI equation. Calcium 8.4(L) 8.8 - 10.4 mg/dL 06/17/2024 6:55 AM PUBLIC SERVICE DIRECTOR [facility] Glucose 95 70 - 99 mg/dL 06/17/2024 6:55 AM PUBLIC SERVICE DIRECTOR [facility] Blood VENOUS LINE / Unknown IVAD (Port) / Unknown 06/17/2024 6:16 AM PUBLIC SERVICE DIRECTOR 06/17/2024 6:27 AM PUBLIC SERVICE DIRECTOR Laquita Kelley MD LAB - BLOOD ORDERABLES Final Re sult [facility] [place] [facility] Lab [address] [facility], [address] [place] [address] * Troponin T, High Sensitivity (06/16/2024 9:33 PM PUBLIC SERVICE DIRECTOR) Pathologist [facility] Troponin T, High Sensitivity 8 <=14 ng/L 06/16/2024 10:13 PM PUBLIC SERVICE DIRECTOR [facility] Comment: Either a High Sensitivity [...] IVAD (Port) / Unknown 06/16/2024 9:33 PM PUBLIC SERVICE DIRECTOR 06/16/2024 9:44 PM PUBLIC SERVICE DIRECTOR us Varghesegiulia Schofield MD LAB - BLOOD ORDERABLE S Final Result [facility] [place] [facility] Lab [address] [facility] [address], [address] [address] * Chest XR, PA & LAT (06/16/2024 6:09 PM PUBLIC SERVICE DIRECTOR) Anatomical Region Laterality Modality Chest Digital Radiogra phy 06/16/2024 6:09 PM PUBLIC SERVICE DIRECTOR Impressions 06/16/2024 6:13 PM PUBLIC SERVICE DIRECTOR IMPRESSION: Left chest port catheter in stable position. Stable position of right central venous catheter. No airspace opacity, pleural effusion or pneumothorax. Narrative 06/16/2024 6:13 PM PUBLIC SERVICE DIRECTOR EXAM: XR CHEST 2 VIEWS LOCATION: [facility] [...] RBC and Platelet Morphology (06/16/2024 5:37 PM PUBLIC SERVICE DIRECTOR) RBC Morphology Confirmed RBC Indices 06/16/2024 7:40 PM PUBLIC SERVICE DIRECTOR [facility] Platelet Assessment Automated Count Confirmed. Platelet morphology is normal. Automated Count Confirmed. Platelet morphology is normal. 06/16/2024 7:40 PM PUBLIC SERVICE DIRECTOR [facility] Blood BLOOD SPECIMEN / Unknown Venipuncture / Unknown 06/16/2024 5:37 PM PUBLIC SERVICE DIRECTOR 06/16/2024 5:46 PM PUBLIC SERVICE DIRECTOR Varghesegiulia Schofield MD LAB - BLOOD ORDERABLE S Final Result [facility] [place] [facility] Lab [address] [facility], [address] [place] [address] * Adult Type and Screen (06/16/2024 5:37 PM PUBLIC SERVICE DIRECTOR) Pathologist [facility] ABO/RH(D) A POS 06/16/2024 5:08 PM PUBLIC SERVICE DIRECTOR [facility] Antibody Screen Negative Negative 06/16/2024 5:08 PM PUBLIC SERVICE DIRECTOR [facility] Comment:Current antibody scr een is negative. Patient has a history of antibody(ies). A delay in compatible red blood cells may occur. SPECIMEN EXPIRATION DATE [id number] 06/16/2024 5:08 PM PUBLIC SERVICE DIRECTOR [facility] Blood BLOOD SPECIMEN / Unknown Venipuncture / Unknown 06/16/2024 5:37 PM PUBLIC SERVICE DIRECTOR 06/16/2024 5:46 PM PUBLIC SERVICE DIRECTOR us Varghesegiulia Schofield MD LAB - BLOOD BANK TEST ORDER Final Result [facility] [address] [place] [address] * (ABNORMAL) CBC with platelets and differential (06/16/2024 5:37 PM PUBLIC SERVICE DIRECTOR) WBC Count 21.0(H) 4.0 - 11.0 10e3/uL 06/16/2024 7:41 PM PUBLIC SERVICE DIRECTOR [facility] RBC Count 2.34(L) 3.80 - 5.20 10e6/uL 06/16/2024 7:41 PM PUBLIC SERVICE DIRECTOR [facility] Hemoglobin 7.4(L) 11.7 - 15.7 g/dL 06/16/2024 7:41 PM PUBLIC SERVICE DIRECTOR [facility] Hematocrit 21.7(L) 35.0 - 47.0 % 06/16/2024 7:41 PM PUBLIC SERVICE DIRECTOR [facility] MCV 93 78 - 100 fL 06/16/2024 7:41 PM PUBLIC SERVICE DIRECTOR [facility] MCH 31.6 26.5 - 33.0 pg 06/16/2024 7:41 PM PUBLIC SERVICE DIRECTOR [facility] MCHC 34.1 31.5 - 36.5 g/dL 06/16/2024 7:41 PM PUBLIC SERVICE DIRECTOR [facility] RDW 19.3(H) 10.0 - 15.0 % 06/16/2024 7:41 PM PUBLIC SERVICE DIRECTOR [facility] Platelet Count 551(H) 150 - 450 10e3/uL 06/16/2024 7:41 PM PUBLIC SERVICE DIRECTOR [facility] % Neutrophils 69 % 06/16/2024 7:41 PM PUBLIC SERVICE DIRECTOR [facility] % Lymphocytes 20 % 06/16/2024 7:41 PM PUBLIC SERVICE DIRECTOR [facility] % Monocytes 9 % 06/16/2024 7:41 PM PUBLIC SERVICE DIRECTOR [facility] % Eosinophils 0 % 06/16/2024 7:41 PM PUBLIC SERVICE DIRECTOR [facility] % Basophils 1 % 06/16/2024 7:41 PM PUBLIC SERVICE DIRECTOR [facility] % Immature Granulocytes 1 % 06/16/2024 7:41 PM PUBLIC SERVICE DIRECTOR [facility] NRBCs per 100 WBC 1(H) <1 /100 025 7:41 PM PUBLIC SERVICE DIRECTOR [facility] Absolute Neutrophils 14.5(H) 1.6 - 8.3 10e3/uL 06/16/2024 7:41 PM PUBLIC SERVICE DIRECTOR [facility] Absolute Lymphocytes 4.2 0.8 - 5.3 10e3/uL 06/16/2024 7:41 PM PUBLIC SERVICE DIRECTOR [facility] Absolute Monocytes 2.0(H) 0.0 - 1.3 10e3/uL 06/16/2024 7:41 PM PUBLIC SERVICE DIRECTOR [facility] Absolute Eosinophils 0.0 0.0 - 0.7 10e3/uL 06/16/2024 7:41 PM PUBLIC SERVICE DIRECTOR [facility] Absolute Basophils 0.2 0.0 - 0.2 10e3/uL 06/16/2024 7:41 PM PUBLIC SERVICE DIRECTOR [facility] Absolute Immature Granulocytes 0.1 <=0.4 10e3/uL 06/16/2024 7:41 PM PUBLIC SERVICE DIRECTOR [facility] Absolute NRBCs 0.3 10e3/uL 06/16/2024 7:41 PM PUBLIC SERVICE DIRECTOR [facility] Blood BLOOD SPECIMEN / Unknown Venipuncture / Unknown 06/16/2024 5:37 PM PUBLIC SERVICE DIRECTOR 06/16/2024 5:46 PM PUBLIC SERVICE DIRECTOR us Varghesegiulia Schofield MD LAB - BLOOD ORDERABLE S Final Result [facility] [place] [facility] Lab [address] [facility], [address] [phone] * (ABNORMAL) Prolactin (06/16/2024 5:37 PM PUBLIC SERVICE DIRECTOR) [facility] Prolactin 55(H) 5 - 23 ng/mL 06/16/2024 6:24 PM PUBLIC SERVICE DIRECTOR [facility] Blood BLOOD SPECIMEN / Unknown Venipuncture / Unknown 06/16/2024 5:37 PM PUBLIC SERVICE DIRECTOR 06/16/2024 5:46 PM PUBLIC SERVICE DIRECTOR us Varghesegiulia Schofield MD LAB - BLOOD ORDERABLE S Final Result Performing Organization Address City/[facility]/ZIP Co de Phone Number [facility] Lab [address] [facility], [address] [place] [phone] * Blood Culture Peripheral Blood (06/16/2024 5:37 PM PUBLIC SERVICE DIRECTOR) [facility] Culture No Growth 06/21/2024 6:47 PM PUBLIC SERVICE DIRECTOR [facility] Blood BLOOD SPECIMEN / Unknown Venipuncture / Unknown 06/16/2024 5:37 PM PUBLIC SERVICE DIRECTOR 06/16/2024 5:47 PM PUBLIC SERVICE DIRECTOR us Varghesegiulia Schofield MD LAB - MICRO GENERAL O RDERABLES Final Result [facility] Inf. Diseases Diag. Lab [address] [facility], [address] [place] [address] * Troponin T, High Sensitivity (06/16/2024 5:37 PM PUBLIC SERVICE DIRECTOR) [facility] Troponin T, High Sensitivity 6 <=14 ng/L 06/16/2024 6:24 PM PUBLIC SERVICE DIRECTOR [facility] Comment: Either a High Sensitivity [...] Unknown Venipuncture / Unknown 06/16/2024 5:37 PM PUBLIC SERVICE DIRECTOR 06/16/2024 5:46 PM PUBLIC SERVICE DIRECTOR us Varghese Cipriano Schofield MD LAB - BLOOD ORDERABLE S Final Result [facility] [place] [facility] Lab [address] [facility], [address] [place] [phone] * (ABNORMAL) Comprehensive metabolic panel (06/16/2024 5:37 PM PUBLIC SERVICE DIRECTOR) Sodium 135 135 - 145 mmol/L 06/16/2024 6:24 PM PUBLIC SERVICE DIRECTOR [facility] Potassium 4.2 3.4 - 5.3 mmol/L 06/16/2024 6:24 PM PUBLIC SERVICE DIRECTOR [facility] Carbon Dioxide (CO2) 18(L) 22 - 29 mmol/L 06/16/2024 6:24 PM PUBLIC SERVICE DIRECTOR [facility] Anion Gap 14 7 - 15 mmol/L 06/16/2024 6:24 PM PUBLIC SERVICE DIRECTOR [facility] Urea Nitrogen 17.3 6.0 - 20.0 mg/dL 06/16/2024 6:24 PM PUBLIC SERVICE DIRECTOR [facility] Creatinine 0.92 0.51 - 0.95 mg/dL 06/16/2024 6:24 PM PUBLIC SERVICE DIRECTOR [facility] GFR Estimate 85 >60 mL/min/1.7 3m2 06/16/2024 6:24 PM PUBLIC SERVICE DIRECTOR [facility] Comment:eGFR calculated usin 2020 CKD-EPI equation. Calcium 9.5 8.8 - 10.4 mg/dL 06/16/2024 6:24 PM PUBLIC SERVICE DIRECTOR [facility] Chloride 103 98 - 107 mmol/L 06/16/2024 6:24 PM PUBLIC SERVICE DIRECTOR [facility] Glucose 122(H) 70 - 99 mg/dL 06/16/2024 6:24 PM PUBLIC SERVICE DIRECTOR [facility] Alkaline Phosphatase 105 40 - 150 U/L 06/16/2024 6:24 PM PUBLIC SERVICE DIRECTOR [facility] AST 49(H) 0 - 45 U/L 06/16/2024 6:24 PM PUBLIC SERVICE DIRECTOR [facility] ALT 32 0 - 50 U/L 06/16/2024 6:24 PM PUBLIC SERVICE DIRECTOR [facility] Protein Total 8.6(H) 6.4 - 8.3 g/dL 06/16/2024 6:24 PM PUBLIC SERVICE DIRECTOR [facility] Albumin 4.6 3.5 - 5.2 g/dL 06/16/2024 6:24 PM PUBLIC SERVICE DIRECTOR [facility] Bilirubin Total 2.0(H) <=1.2 mg/dL 06/16/2024 6:24 PM PUBLIC SERVICE DIRECTOR [facility] Blood BLOOD SPECIMEN / Unknown Venipuncture / Unknown 06/16/2024 5:37 PM PUBLIC SERVICE DIRECTOR 06/16/2024 5:46 PM PUBLIC SERVICE DIRECTOR us Varghesegiulia Schofield MD LAB - BLOOD ORDERABLE S Final Result [facility] Core Lab [address] [facility], [address] [phone] * EKG 12 lead (06/16/2024 4:55 PM PUBLIC SERVICE DIRECTOR) Systolic Blood Pressure mmHg RADIOLOGY RESULTS Diastolic Blood Pressure mmHg RADIOLOGY RESULTS Ventricular Rate 122 BPM RAD IOLOGY RESULTS Atrial Rate 122 BPM RADIOLOG Y RESULTS [place] Interval 128 ms RADIOLOG Y RESULTS QRS Duration 74 ms RADIOLO GY RESULTS QT 314 ms RADIOLOGY RESULTS QTc 447 ms RADIOLOGY RESULTS P [place] 63 degrees RADIOLOGY RESULTS R AXIS 83 degrees RADIOLOGY RESULTS T [place] 29 degrees RADIOLOGY RESULTS Interpretation ECG Sinus tachycardia Otherwise normal ECG Unconfirmed report - interpretation of this ECG is computer generated - see medical record for final interpretation Confirmed by - EMERGENCY ROOM, PHYSICIAN ([id number]), general expeditor KARLA WILLIAMSON ([id number]) on 06/17/2024 6:56:59 AM RADIOLOGY RESULTS 06/16/2024 4:55 PM PUBLIC SERVICE DIRECTOR 06/17/2024 6:56 AM PUBLIC SERVICE DIRECTOR us Abimael Schofield MD ECG ORDERABLES Edite [...] days, Indications: pneumoniaIndications:pneumonia $Given 06/18/2024 8:40 PM PUBLIC SERVICE DIRECTOR 200 mg $Given 06/18/2024 12:05 PM PUBLIC SERVICE DIRECTOR 200 mg $Given 06/17/2024 9:25 PM PUBLIC SERVICE DIRECTOR 200 mg diclofenac (VOLTAREN) 1 % topical gel 2 g 2 g, Topical, 4 TIMES DAILY, First dose on 06/17/24 at 1400, Apply to areas of pain. Use supplied dosing card to measure dose. diphenhydrAMINE (BENADRYL) capsule 25 mg 25 mg, Oral, EVERY 6 HOURS PRN, itching, Starting on Wed06/16/24 at 6 $Given 06/19/2024 12:46 PM PUBLIC SERVICE DIRECTOR 25 mg diphenhydrAMINE (BENADRYL) injection 25 mg 25 mg, Intravenous, EVERY 6 HOURS PRN, itching, Starting on Wed06/16/24 at 1956 $Given 06/20/2024 8:36 AM PUBLIC SERVICE DIRECTOR 25 mg $Given 06/20/2024 2:08 AM PUBLIC SERVICE DIRECTOR 25 mg $Given 06/19/2024 8:21 PM PUBLIC SERVICE DIRECTOR 25 mg enoxaparin ANTICOAGULANT (LOVENOX) injection 40 mg 40 mg, Subcutaneous, EVERY 24 HOURS, First dose on Wed06/16/24 at 2100, Contact provider if platelet count drops by 50% or more after enoxaparin initiation OR if platelet count falls below 50 x 10e3/uL $Given 06/19/2024 8:29 PM PUBLIC SERVICE DIRECTOR 40 mg $Given 06/18/2024 8:01 PM PUBLIC SERVICE DIRECTOR 40 mg $Given 06/17/2024 9:32 PM PUBLIC SERVICE DIRECTOR 40 mg FLUoxetine (PROzac) capsule 10 mg 10 mg, Oral, DAILY, First dose on Wed06/17/24 at 0800 $Given 06/20/2024 7:54 AM PUBLIC SERVICE DIRECTOR 10 mg $Given 06/19/2024 8:54 AM PUBLIC SERVICE DIRECTOR 10 mg $Given 06/18/2024 9:54 AM PUBLIC SERVICE DIRECTOR 10 mg folic acid (FOLVITE) tablet 1 mg 1 mg, Oral, DAILY, First dose on Wed06/17/24 at 0800 $Given 06/20/2024 7:51 AM PUBLIC SERVICE DIRECTOR 1 mg $Given 06/19/2024 8:54 AM PUBLIC SERVICE DIRECTOR 1 mg $Given 06/18/2024 8:09 AM PUBLIC SERVICE DIRECTOR 1 mg heparin lock flush 10 unit/mL [...] each port lumen $Given 06/20/2024 10:55 AM PUBLIC SERVICE DIRECTOR 5 mLs hydromorphone (DILAUDID) injection 2 mg 2 mg, Intravenous, EVERY 1 HOUR PRN, moderate pain, Starting on Wed06/16/24 at 1708, For 3 doses $Given 06/16/2024 8:20 PM PUBLIC SERVICE DIRECTOR 2 mg $Given 06/16/2024 5:42 PM PUBLIC SERVICE DIRECTOR 2 mg hydromorphone (DILAUDID) injection 2 mg 2 mg, Intravenous, EVERY 3 HOURS, First dose on Wed06/16/24 at 2100, May use concomitant with non-opioid analgesics. $Given 06/16/2024 9:59 PM PUBLIC SERVICE DIRECTOR 2 mg hydromorphone (DILAUDID) injection 2 mg 2 mg, Intravenous, EVERY 2 HOURS, First dose (after last modification) on Wed06/17/24 at 0000, May use concomitant with non-opioid analgesics. $Given 06/20/2024 9:53 AM PUBLIC SERVICE DIRECTOR 2 mg $Given 06/20/2024 7:49 AM PUBLIC SERVICE DIRECTOR 2 mg $Given 06/20/2024 5:51 AM PUBLIC SERVICE DIRECTOR 2 mg hydroxyurea (HYDREA) capsule 1,000 mg 1,000 mg, Oral, 2 TIMES DAILY, First dose on Wed06/16/24 at 2100, Indications: Sickle cell anemia, Do not crush May require hepatic and/or renal dose or frequency adjustments. See reference link for guidelines.Indications:Sickle cell anemia $Given 06/20/2024 7:51 AM PUBLIC SERVICE DIRECTOR 1,000 mg $Given 06/19/2024 8:13 PM PUBLIC SERVICE DIRECTOR 1,000 mg $Given 06/19/2024 8:55 AM PUBLIC SERVICE DIRECTOR 1,000 mg lactated ringers infusion at 75 mL/hr, Intravenous, CONTINUOUS, Starting on Wed06/18/24 at 0845, Until Wed06/20/24 at 0815 Rate/Dose Verify 06/20/2024 8:00 AM PUBLIC SERVICE DIRECTOR 75 mL/hr $New Bag 06/19/2024 10:38 PM PUBLIC SERVICE DIRECTOR 75 mL/hr Rate/Dose Verify 06/19/2024 8:29 PM PUBLIC SERVICE DIRECTOR 75 mL/h r Lidocaine (LIDOCARE) 4 % [...] 2-5 Minutes, Starting on Wed06/16/24 at 1958 $Given 06/20/2024 2:08 AM PUBLIC SERVICE DIRECTOR 4 mg $Given 06/19/2024 8:15 PM PUBLIC SERVICE DIRECTOR 4 mg $Given 06/19/2024 12:46 PM PUBLIC SERVICE DIRECTOR 4 mg polyethylene glycol (MIRALAX) Packet 17 [...] DAILY PRN, constipation, Starting on Wed06/16/24 at 8, IF more than 1 constipation PRN medication [...] each port lumen. $Given 06/20/2024 10:54 AM PUBLIC SERVICE DIRECTOR 10 mLs sodium chloride (PF) 0.9% PF flush 3 mL 3 mL, Intracatheter, EVERY 8 HOURS, First dose on Wed06/16/24 at 1710, to lock peripheral IV dormant line $Given 06/20/2024 12:24 AM PUBLIC SERVICE DIRECTOR 3 mLs $Given 06/18/2024 6:22 PM PUBLIC SERVICE DIRECTOR 3 mLs $Given 06/17/2024 7:34 AM PUBLIC SERVICE DIRECTOR 3 mLs sodium chloride (PF) 0.9% PF flush 3 mL 3 mL, Intracatheter, EVERY 1 MIN PRN, line flush, other, to ensure patency or to lock dormant line, Starting on Wed06/16/24 at 1706 sodium chloride (PF) 0.9% PF flush 3 mL 3 mL, Intracatheter, EVERY 8 HOURS, First dose on Wed06/16/24 at 2100, to lock peripheral IV dormant line $Given 06/20/2024 4:41 AM PUBLIC SERVICE DIRECTOR 3 mLs $Given 06/19/2024 12:56 PM PUBLIC SERVICE DIRECTOR 3 mLs $Given 06/18/2024 12:07 PM PUBLIC SERVICE DIRECTOR 3 mLs sodium chloride (PF) 0.9% PF flush 3 mL 3 mL, Intracatheter, EVERY 1 MIN PRN, line flush, other, to ensure patency or to lock dormant line, Starting on Wed06/16/24 at 2058 $Given 06/20/2024 5:5 2 AM PUBLIC SERVICE DIRECTOR 3 mLs $Given 06/20/2024 2:59 AM PUBLIC SERVICE DIRECTOR 3 mLs $Given 06/20/2024 2:07 AM PUBLIC SERVICE DIRECTOR 3 mLs sodium chloride 0.9 % infusion at 75 mL/hr, Intravenous, CONTINUOUS, Starting on Wed06/16/24 at 1710, Until Wed06/18/24 at 0843 Rate/Dose Verify 06/18/2024 8:07 AM PUBLIC SERVICE DIRECTOR 75 mL/hr $New Bag 06/17/2024 9:42 PM PUBLIC SERVICE DIRECTOR 75 mL/hr $New Bag 06/17/2024 4:05 PM PUBLIC SERVICE DIRECTOR 75 mL/hr sodium chloride 0.9% BOLUS 500 mL Intravenous, 500 mL, ONCE, at 500 mL/hr, Administer over 1 Hours, On Wed06/16/24 at 1710, For 1 dose $New Bag 06/16/2024 5:51 PM PUBLIC SERVICE DIRECTOR 500 mLs 500 mL/hr documented in this encounter Active and Recently Administered Medications Times are shown in PUBLIC SERVICE DIRECTOR. Scheduled Medication Order 06/18/2024 06/19/2024 06/20/2024 cefpodoxime (VANTIN) tablet 200 mg (COMPLETED) SULEMA, 200 mg, Oral, 2 TIMES DAILY, First dose on 06/17/24 at 1230, For 2 days, Indications: pneumonia 1205 ($Given - Provider: Tejal Curry, RN)2039 ($Given - Provider: Amelia Gannon, SOFIA) diclofenac (VOLTAREN) 1 % topical gel 2 [...] Patient/family refused)1153 (Not Given - Provider: Kiki Caal, SOFIA - Reason: Patient/family refused)1516 (Not Given - Provider: Kiki Caal, SOFIA - Reason: Patient/family refused)2030 (Not Given - Provider: Sarai Shrestha RN - Reason: Patient/family refused) 0755 (Not Given - Provider: Divya Reyes, SOFIA - Reason: Patient/family refused)1200 (Canceled Entry - [...] Gannon, SOFIA) 2028 ($Given - Provider: Sarai Shrestha, SOFIA) FLUoxetine (PROzac) capsule 10 mg 10 mg, Oral, DAILY, First dose on Wed06/17/24 at 0800 0954 ($Given - Provider: Tejal Curry, SOFIA) 0854 ($Given - Provider: Anitha Cervantes, RN) 0754 ($Given - Provider: Divya Reyes, SOFIA) folic acid (FOLVITE) tablet 1 mg 1 mg, Oral, DAILY, First dose on Wed06/17/24 at 0800 0809 ($Given - Provider: Tejal Curry, SOFIA) 0854 ($Given - Provider: Anitha Cervantes, SOFIA) [...] Tejal Curry RN)1207 ($Given - Provider: Tejal Curry, RN)1412 ($Given - Provider: Tejal Curry, RN)1618 ($Given - Provider: Tejal Curry, RN)1821 ($Given - Provider: Tejal Curry, RN)1957 ($Given - Provider: Amelia Gannon RN)2201 ($Given - Provider: Amelia Gannon RN)2359 ($Given - Provider: Amelia Gannon RN) 0153 ($Given - Provider: Amelia Gannon RN)0350 ($Given - Provider: Amelia Gannon RN)0552 ($Given - Provider: Amelia Gannon RN)0851 ($Given - Provider: Anitha Cervantes RN)1036 ($Given - Provider: Kiki Caal RN)1248 ($Given - Provider: Kiki Caal, SOFIA)1427 ($Given - Provider: Kiki Caal, SOFIA)1643 ($Given - Provider: Andrea Salinas RN)1830 ($Given - Provider: Kiki Caal, SOFIA)2025 ($Given - Provider: Sarai Shrestha RN)2223 ($Given - Provider: Sarai Shrestha RN) 0024 ($Given - Provider: Rene Morocho RN)0259 ($Given - Provider: Rene Morocho, SOFIA)0441 ($Given - Provider: Rene Morocho, SOFIA)0551 ($Given - Provider: Rene Morocho RN)0749 ($Given - Provider: Divya Reyes, SOFIA)0953 ($Given - Provider: Divya Reyes, SOFIA)1200 (Canceled Entry - Provider: Orders Generic [...] Tejal Curry RN)1956 ($Given - Provider: Amelia Gannon, SOFIA) 0855 ($Given - Provider: Anitha Cervantes, SOFIA)2012 ($Given - Provider: Sarai Shrestha, SOFIA) 0751 ($Given - Provider: Divya Reyes, SOFIA) Lidocaine (LIDOCARE) 4 % Patch 1 [...] Reason: IV Infusing)0845 (Not Given - Provider: nAitha Cervantes RN - Reason: IV Infusing)1759 (Not Given - Provider: Kiki Caal RN - Reason: IV Infusing) 0024 ($Given - Provider: Rene Morocho, SOFIA)1000 (Canceled Entry - Provider: Divya Reyes RN) [...] IV Infusing) 0441 ($Given - Provider: Rene Morocho, SOFIA)1300 (Canceled Entry - Provider: Orders Generic Provider [...] Curry RN)1613 (Rate/Dose Verify - Provider: Tejal A Fink, RN)1821 (Rate/Dose Verify - Provider: Tejal Curry RN)2211 ($New Bag - Provider: Amelia Gannon RN) 1036 (Rate/Dose Verify - Provider: Kiki Caal, RN)1256 (Rate/Dose Verify - Provider: Kiki Caal, RN)202 (Rate/Dose Verify - Provider: Sarai Shrestha, RN)2238 ($New Bag - Provider: Sarai Shrestah RN) 0800 (Rate/Dose Verify - Provider: Divya [...] Amelia Gannon RN)1246 ($Given - Provider: Kiki Caal, SOFIA)202 (See Alternative - Provider: Sarai Shrestha RN) 0208 (See Alternative - Provider: Rene Morocho RN)0836 (See Alternative - Provider: Divya Reyes RN) diphenhydrAMINE (BENADRYL) injection 25 mg(Linked Group 1) 25 mg, Intravenous, EVERY 6 HOURS PRN, itching, Starting on Wed06/16/24 at 1956 0010 ($Given - Provider: Zaynab Veliz RN)0559 ($Given - Provider: Amelia Gannon, RN)1205 ($Given - Provider: Tejal Curry, RN)1821 ($Given - Provider: Tejal Curry, RN)2359 ($Given - Provider: Amelia Gannon, RN) 0551 ($Given - Provider: Amelia Gannon, RN)1246 (See Alternative - Provider: Kiki Caal, SOFIA)2021 ($Given - Provider: Sarai Shrestha RN) 0208 [...] - Provider: Rene Morocho RN - Comment: selling underwriter used scheudled dose instead of PRN [...] Zaynab Veliz RN)0600 ($Given - Provider: Amelia Gannon, SOFIA)1822 ($Given - Provider: Tejal Curry RN)2359 ($Given - Provider: Amelia Gannon, SOFIA) 0552 ($Given - Provider: Amelia Gannon, RN)1246 ($Given - Provider: Kiki Caal, OSFIA)2015 ($Given - Provider: Sarai Shrestha RN) 0208 [...] stools. documented in this encounter Care Teams Respiratory Care Faculty Relationship Specialty Start Date End Date No Ref-Primary, Physician PCP - General 03/15/24 06/17/24 Veronica Joseph MD [address] [place] [address] PCP - General Family Medicine 06/18/24 Mor Ramsey Medical Student 04/03/24 Case Samuel MD [address] [place] [address] [address], [address] [place] [address] Assigned Pediatric Specialist Provider 05/18/24 Juhi Benson, RN Specialty [facility] [employer] Hematology & Oncology 05/29/24 documented as of this encounter
--- OUTSIDE RECORDS SUMMARY | 2024-07-28 20:48 | XMS_ITS | Encounter Summary ---
Author Organization [facility] Address [address] [place] [address]. 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 Gender Identity Not on file Sexual Orientation Not on file documented as of this encounter Plan of Treatment Upcoming Encounters Date Type Department Care Team (Late st Contact Info) Description 08/07/2024 7:15 AM CDT Lab [facility] Cancer [address] [phone] Case Samuel MD [address] [place] [address], [address] [address] 08/08/2024 8:00 AM CDT Appointment [facility] Advanced Treatment [address] [phone] Case Samuel MD [address] [place] [address], [address] [address] 10/30/2024 11:30 AM CDT Lab [facility] Cancer [address] [phone] Case Samuel MD [address] [place] [address], [address] [address] 10/30/2024 12:00 PM CDT Oncology Visit [facility] Cancer [address] [phone] Case Samuel MD [address] [facility] 484, [address] [place] [address] documented as of this encounter Goals Goal [...] on filedocumented in this encounter Care Teams Router Machine Operator Relationship Specialty Start Date End Date Veronica Joseph MD [address] [place] [address] PCP - General Family Medicine 06/18/24 Mor Ramsey Medical Student 04/03/24 Case Samuel MD [address] [facility] 484, [address] [place] [address] Assigned Pediatric Specialist Provider 05/18/24 Juhi Benson, RN Specialty Banking Paralegal Hematology & Oncology 05/29/24 documented as of this encounter
--- OUTSIDE RECORDS SUMMARY | 2024-07-28 20:48 | XMS_ITS | Encounter Summary ---
Author Organization [facility] Address [address] [place] [address] Care Team Providers Care Coronary Clinical Specialist Name Role Phone No Ref-Primary, Physician Primary Care Provider Mor Ramsey Unavailable Unavailable Case Samuel MD Unavailable [phone] Juhi Benson RN Unavailable Unavailable Reason for Visit * Reason Onset Date Comments Refill Request 06/15/2024 Encounter Details Date Type Department Care Team (Late st Contact Info) Description 06/15/[address] [place] [address] Case Samuel MD [address] [place] [address], [address] [place], [place] [address] Refill Request Social History Tobacco Use Types [...] on file 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 Case Samuel on 06/07/24 FUNERAL COUNSELOR Reviewed: no access Send to provider: Dr. Samuel and SOFIA ReynagaCC. T FORMULATOR documented in this encounter Plan of Treatment Upcoming Encounters Date Type Department Care Team (Late st Contact Info) Description 08/07/2024 7:15 AM CDT Lab [facility] Cancer [address] [phone] Case Samuel MD [address] [place] [address], [address] [address] 08/08/2024 8:00 AM CDT Appointment [facility] Advanced Treatment [address] [phone] Case Samuel MD [address] [place] [address], [address] [address] 10/30/2024 11:30 AM CDT Lab [facility] Cancer [address] [phone] Case Samuel MD [address] [place], [place] [address], RO[address] [address] 10/30/2024 12:00 PM CDT Oncology Visit [facility] [address] [phone] Case Samuel MD [address] [place] [address], [address] [address] documented as of this encounter Goals Goal [...] crisis documented in this encounter Care Teams Coronary Clinical Specialist Relationship Specialty Start Date End Date No Ref-Primary, Physician PCP - General 03/15/24 06/17/24 Mor Ramsey Medical Student 04/03/24 Case Samuel MD [address] [place] [address], [address] [place] [address] Assigned Pediatric Specialist Provider 05/18/24 Juhi Benson, RN Specialty Territory Account Representative Hematology & Oncology 05/29/24 documented as of this encounter
--- OUTSIDE RECORDS SUMMARY | 2024-07-28 20:48 | XMS_ITS | Encounter Summary ---
Author Organization [facility] Address [address] [place] [address]. 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 Gender Identity Not on file Sexual Orientation Not on file documented as of this encounter Plan of Treatment Upcoming Encounters Date Type Department Care Team (Late st Contact Info) Description 08/07/2024 7:15 AM CDT Lab [facility] [address] [phone] Case Samuel MD [address] [place] [address], [address] [address] 08/08/2024 8:00 AM CDT Appointment [facility] Advanced Treatment [address] [phone] Case Samuel MD [address] [place] [address], [address] [address] 10/30/2024 11:30 AM CDT Lab [facility] [address] [phone] Case Samuel MD [address] [place] [address], [address] [address] 10/30/2024 12:00 PM CDT Oncology Visit [facility] [address] [phone] Case Samuel MD [address] [facility] 484, [address] [place] [address] documented as of this encounter Goals Goal [...] on filedocumented in this encounter Care Teams Casing Running Machine Tender Relationship Specialty Start Date End Date Veronica Joseph MD [address] [place] [address] PCP - General Family Medicine 06/18/24 Mor Ramsey Medical Student 04/03/24 Case Samuel MD [address] [facility] 484, [address] [place] [address] Assigned Pediatric Specialist Provider 05/18/24 Juhi Benson, RN Specialty Bull Fiddle Player Hematology & Oncology 05/29/24 documented as of this encounter
--- OUTSIDE RECORDS SUMMARY | 2024-07-28 20:49 | XMS_ITS | Encounter Summary ---
Author Organization [facility] Address [address] [place] [address]. 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 Advanced Treatment [address] [phone] Case Samuel MD [address] [place] [address], [address] [address] 10/30/2024 11:30 AM CDT Lab [facility] Cancer [address] [phone] Case Samuel MD [address] [place] [address], [address] [address] 10/30/2024 12:00 PM CDT Oncology Visit [facility] Cancer [address] [phone] Case Samuel MD [address] [facility] 484, [address] [place] [address] documented as of this encounter Goals Goal [...] filedocumented in this encounter Care Teams Medical Record Librarian Relationship Specialty Start Date End Date Veronica Joseph MD [address] [place] [address] PCP - General Family Medicine 06/18/24 Mor Ramsey Medical Student 04/03/24 Case Samuel MD [address] [facility] 484, [address] [place] [address] Assigned Pediatric Specialist Provider 05/18/24 Juhi Benson, RN Specialty Spinning Machine Operator Hematology & Oncology 05/29/24 documented as of this encounter
--- OUTSIDE RECORDS SUMMARY | 2024-07-28 20:49 | XMS_ITS | Encounter Summary ---
Author Organization [facility] Address [address] [place] [address]. 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 Advanced Treatment [address] [phone] Case Samuel MD [address] [place] [address], [address] [address] 10/30/2024 11:30 AM CDT Lab [facility] Cancer [address] [phone] Case Samuel MD [address] [place] [address], [address] [address] 10/30/2024 12:00 PM CDT Oncology Visit [facility] Cancer [address] [phone] Case Samuel MD [address] [facility] 484, [address] [place] [address] documented as of this encounter Goals Goal [...] on filedocumented in this encounter Care Teams Lace Stripper Relationship Specialty Start Date End Date Veronica Joseph MD [address] [place] [address] PCP - General Family Medicine 06/18/24 Mor Ramsey Medical Student 04/03/24 Case Samuel MD [address] [facility] 484, [address] [place] [address] Assigned Pediatric Specialist Provider 05/18/24 Juhi Benson, RN Specialty Pressure Test Operator Hematology & Oncology 05/29/24 documented as of this encounter
--- OUTSIDE RECORDS SUMMARY | 2024-07-28 20:49 | XMS_ITS | Encounter Summary ---
Author Organization [facility] Address [address] [place] [address]. [place] [address] Care Team Providers Care Refrigerating Technician Name Role Phone RoxyElvirac Unavailable Unavailable Case Samuel MD Unavailable [phone] Juhi Benson RN Unavailable Unavailable Veronica Joseph MD Primary Care Provider [phone] Reason for Visit * Reason Comments Sickle Cell Pain Crisis Encounter Details Date Type Department Care Team ([facility] st Contact Info) Description 07/13/2024 10:02 PM CDT - 07/14/2024 1:55 AM CDT Emergency [facility] Emergency Department [address] [place] [phone] Jayden Adhikari MD [address] [place] [address] Sickle cell pain crisis (H) Discharge Disposition: [...] Legal Sex 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 Gender Identity Not on file Sexual Orientation Not on file documented as of this encounter Last Filed Vital Signs Vital Sign Reading Time Taken Comments Blood Pressure 112/54 07/14/2024 1:00 AM CDT Pulse 86 07/14/2024 1:00 AM CDT Temperature 36.9 C (98.4 F) 07/14/2024 1:00 AM CDT Respiratory Rate 18 07/14/2024 1:00 AM CDT Oxygen Saturation 98% 07/14/2024 1:00 AM CDT Inhaled Oxygen Concentration - - Weight 52.2 kg (115 lb) 07/13/2024 9:45 PM CDT Height 154.9 cm (5' 1) 07/13/2024 9:45 PM CDT Body Mass Index 21.73 07/13/2024 9:45 PM CDT documented in this encounter Discharge [...] 05/01/2024 naloxone (NARCAN) 4 MG/0.1ML nasal spray Eminence 1 spray (4 mg) into one nostril [...] as needed for severe pain. 45 tablet 07/11/2024 5 documented as of this encounter ED Notes * Jayden Adhikari MD - 07/13/2024 10:05 PM CDT Images from the original note were not included. [facility] ([facility]) 07/13/24 ED PROVIDER NOTE History Chief Complaint Patient presents with Sickle Cell Pain Crisis HPI Gianna Hernández is a 29 year old female with a past medical history of sickle cell disease, PE anticoagulated on Eliquis, and gallstones, with care plan in place, who presents to the ED for evaluation of sickle cell pain crisis. Patient reports 2 days of current sickle cell pain crisis that hasn't been getting better. Patient states her current pain feels like her usual pain. Patient reports pain in her back and bilateral legs. Patient states she tried to go to the oncology clinic but they had no room today. Patient denies fever, loss of appetite, and vomiting. Past Medical History Past Medical History: Diagnosis [...] all other systems negative. Physical Exam BP: 96/52 Pulse: 88 Temp: 98.5 ??F (36.9 ??C) Resp: 18 Height: 154.9 cm (5' 1) Weight: 52.2 kg (115 lb) SpO2: 97 % Physical Exam Constitutional: General: She is not in acute distress. Appearance: She is not toxic-appearing. HENT: Head: Normocephalic and atraumatic. Nose: Nose normal. Mouth/Throat: Mouth: Mucous membranes are moist. Pharynx: Oropharynx is clear. Eyes: Conjunctiva/sclera: Conjunctivae normal. Cardiovascular: Rate and Rhythm: Normal rate and regular rhythm. Heart sounds: No murmur heard. Pulmonary: Effort: Pulmonary effort is normal. No respiratory distress. Breath sounds: No wheezing. Musculoskeletal: General: Normal range of motion. Skin: General: Skin is dry. Neurological: General: No focal deficit present. Mental Status: She is alert and oriented to person, place, and time. ED Course, Procedures, & Data Procedures Results for orders placed or performed during the hospital encounter of 07/13/24 Reticulocyte count Status: Abnormal Result Value Ref Range % Reticulocyte 6.6 (H) 0.5 - 2.0 % Absolute Reticulocyte 0.198 (H) 0.025 - 0.095 10e6/uL Comprehensive metabolic panel Status: Abnormal (Preliminary result) Result Value Ref Range Sodium 136 135 - 145 mmol/L Potassium 4.0 3.4 - 5.3 mmol/L Carbon Dioxide (CO2) 22 22 - 29 mmol/L Anion Gap 10 7 - 15 mmol/L Urea Nitrogen 6.8 6.0 - 20.0 mg/dL Creatinine 0.67 0.51 - 0.95 mg/dL GFR Estimate >90 >60 mL/min/1.73m2 Calcium Chloride 104 98 - 107 mmol/L Glucose 110 (H) 70 - 99 mg/dL Alkaline Phosphatase 91 40 - 150 U/L AST 36 0 - 45 U/L ALT 22 0 - 50 U/L Protein Total 7.6 6.4 - 8.3 g/dL Albumin 4.2 3.5 - 5.2 g/dL Bilirubin Total 1.4 (H) <=1.2 mg/dL CBC with platelets and differential Status: Abnormal Result Value Ref Range WBC Count 13.1 (H) 4.0 - 11.0 10e3/uL RBC Count 2.98 (L) 3.80 - 5.20 10e6/uL Hemoglobin 9.6 (L) 11.7 - 15.7 g/dL Hematocrit 28.9 (L) 35.0 - 47.0 % MCV 97 78 - 100 fL MCH 32.2 26.5 - 33.0 pg MCHC 33.2 31.5 - 36.5 g/dL RDW 16.1 (H) 10.0 - 15.0 % Platelet Count 351 150 - 450 10e3/uL % Neutrophils 50 % % Lymphocytes 35 % % Monocytes 12 % % Eosinophils 2 % % Basophils 1 % % Immature Granulocytes 0 % NRBCs per 100 WBC 0 <1 /100 Absolute Neutrophils 6.5 1.6 - 8.3 10e3/uL Absolute Lymphocytes 4.6 0.8 - 5.3 10e3/uL Absolute Monocytes 1.6 (H) 0.0 - 1.3 10e3/uL Absolute Eosinophils 0.2 0.0 - 0.7 10e3/uL Absolute Basophils 0.1 0.0 - 0.2 10e3/uL Absolute Immature Granulocytes 0.0 <=0.4 10e3/uL Absolute NRBCs 0.1 10e3/uL RBC and Platelet Morphology Status: Abnormal Result Value Ref Range RBC Morphology Confirmed RBC Indices Platelet Assessment Automated Count Confirmed. Platelet morphology is normal. Automated Count Confirmed. Platelet morphology is normal. Giant Platelets Slight (A) None Seen Elliptocytes Slight (A) None Seen RBC Fragments Slight (A) None Seen Target Cells Slight (A) None Seen Teardrop Cells Slight (A) None Seen CBC with platelets differential Status: Abnormal Narrative The following orders were created for panel order CBC with platelets differential. Procedure Abnormality Status --------- ------ CBC with platelets and ...[[id number]] Abnormal Final result RBC and Platelet Morpho...[[id number]] Abnormal Final result Please view results for these tests on the individual orders. Medications diphenhydrAMINE (BENADRYL) capsule 25 mg (25 mg Oral $Given 07/13/242314) heparin lock flush 100 unit/mL injection 5-10 mL (5 mLs Intracatheter $Given 07/14/24 013) hydromorphone (DILAUDID) injection 2 mg (2 mg Intravenous $Given 07/14/24115) lactated ringers BOLUS 1,000 mL (0 mLs Intravenous Stopped 07/14/24117) ondansetron (ZOFRAN) injection 8 mg (8 mg Intravenous $Given 07/13/242314) Labs Ordered and Resulted from Time of ED Arrival to Time of ED Departure RETICULOCYTE COUNT - Abnormal Result Value % Reticulocyte 6.6 (*) Absolute Reticulocyte 0.198 (*) COMPREHENSIVE METABOLIC PANEL - Abnormal Sodium 136 Potassium 4.0 Carbon Dioxide (CO2) 22 Anion Gap 10 Urea Nitrogen 6.8 Creatinine 0.67 GFR Estimate >90 Calcium Chloride 104 Glucose 110 (*) Alkaline Phosphatase 91 AST 36 ALT 22 Protein Total 7.6 Albumin 4.2 Bilirubin Total 1.4 (*) CBC WITH PLATELETS AND DIFFERENTIAL - Abnormal WBC Count 13.1 (*) RBC Count 2.98 (*) Hemoglobin 9.6 (*) Hematocrit 28.9 (*) MCV 97 MCH 32.2 MCHC 33.2 RDW 16.1 (*) Platelet Count 351 % Neutrophils 50 % Lymphocytes 35 % Monocytes 12 % Eosinophils 2 % Basophils 1 % Immature Granulocytes 0 NRBCs per 100 WBC 0 Absolute Neutrophils 6.5 Absolute Lymphocytes 4.6 Absolute Monocytes 1.6 (*) Absolute Eosinophils 0.2 Absolute Basophils 0.1 Absolute Immature Granulocytes 0.0 Absolute NRBCs 0.1 RBC AND PLATELET MORPHOLOGY - Abnormal RBC Morphology Confirmed RBC Indices Platelet Assessment Value: Automated Count Confirmed. Platelet morphology is normal. Giant Platelets Slight (*) Elliptocytes Slight (*) RBC Fragments Slight (*) Target Cells Slight (*) Teardrop Cells Slight (*) No orders to display Critical care was not performed. Medical Decision Making The patient's presentation was of high complexity (a chronic illness severe exacerbation, progression, or side effect of treatment). The patient's evaluation involved: review of external note(s) from 3+ sources (care plan, ED notes, clinic notes) review of 3+ test result(s) ordered prior to this encounter (see separate area of note for details) ordering and/or review of 3+ test(s) in this encounter (see separate area of note for details) The patient's management necessitated high risk (a parenteral controlled substance). Assessment & Plan This is a 29-year-old female with history of sickle cell disease denying for sickle cell pain crisis. On arrival vitals were reassuring. Labs obtained, CBC showed slight leukocytosis however she is afebrile, denies any infectious symptoms. Hemoglobin overall stable, no significant electrolyte derangement on CMP. Patient has a care plan in place and was treated for this. Plan, on reevaluation reported feeling improved and wished to be discharged. She will return for worsening symptoms or other concerns. I have reviewed the nursing notes. I have reviewed the findings, diagnosis, plan and need for follow up with the patient. New Prescriptions No medications on file Final diagnoses: Sickle cell pain crisis (H) IDmitriy, am serving as a trained forensic medical examiner to document services personally performed by Jayden Adhikari MD based on the provider's statements to me on July 13, 2024. This document has been checked and approved by the attending provider. Jayden Long MD, was physically present and have reviewed and verified the accuracy of this note documented by Dmitriy Steinberg forensic medical examiner. Jayden Adhikari MD [facility]MENT 07/13/2024 Jayden Adhikari MD 07/14/24 0146 * Oriana Marquis RN - 07/13/2024 9:46 PM CDT Came in to ED triage ambulatory. Came in due to sickle cell crisis. documented in this encounter Plan of Treatment Upcoming Encounters Date Type Department Care Team (Late st Contact Info) Description 08/07/2024 7:[address] [facility] [address] [phone] Case Samuel MD [address] [place] [address], [address] [address] 08/08/2024 8:[address] [facility] [address] [phone] Case Samuel MD [address] [place] [address], [address] [id number] 10/30/2024 11:[address] [facility] [address] [phone] Case Samuel MD [address] [place] [address], [address] [address] 10/30/2024 12:00 PM CDT Oncology Visit [facility] [address] [phone] Case Samuel MD [address] [place], [place] [phone], RO[address] [address] documented as of this encounter Goals Goal [...] Diagnosis Comments RBC AND PLATELET MORPHOLOGY STAT 07/13/2024 11:21 PM CDT CBC WITH PLATELETS AND DIFFERENTIAL STAT 07/13/2024 11:21 PM CDT CBC WITH PLATELETS & DIFFERENTIAL STAT 07/13/2024 11:21 PM CDT RETICULOCYTE COUNT STAT 07/13/2024 11 :21 PM CDT COMPREHENSIVE METABOLIC PANEL STAT 07/13/2024 11:21 PM CDT documented in this encounter Results * (ABNORMAL) RBC and Platelet Morphology (07/13/2024 11:21 PM CDT) RBC Morphology Confirmed RBC Indices 07/14/2024 12:03 AM CDT [facility] Platelet Assessment Automated Count Confirmed. Platelet morphology is normal. Automated Count Confirmed. Platelet morphology is normal. 07/14/2024 12:03 AM CDT [facility] Giant Platelets Slight(A) None Seen 12:03 AM CDT [facility] Elliptocytes Slight(A) None Seen 07/14/2024 12:03 AM CDT [facility] RBC Fragments Slight(A) None Seen 07/14/2024 12:03 AM CDT [facility] Target Cells Slight(A) None Seen 07/14/2024 12:03 AM CDT [facility] Teardrop Cells Slight(A) None Seen 07/14/2024 12:03 AM CDT [facility] Blood BLOOD SPECIMEN / Unknown Venipuncture / Unknown 07/13/2024 11:21 PM CDT 07/13/2024 11:33 PM CDT Jayden Adhikari MD LAB - BLOOD ORDERABLES Final Result [facility] [address] [facility], [address] [place] [phone], [facility] * (ABNORMAL) CBC with platelets and differential (07/13/2024 11:21 PM CDT) WBC Count 13.1(H) 4.0 - 11.0 10e3/uL 07/14/2024 12:04 AM CDT [facility] RBC Count 2.98(L) 3.80 - 5.20 10e6/uL 07/14/2024 12:04 AM CDT [facility] Hemoglobin 9.6(L) 11.7 - 15.7 g/dL 07/14/2024 12:04 AM CDT [facility] Hematocrit 28.9(L) 35.0 - 47.0 % 07/14/2024 12:04 AM CDT [facility] MCV 97 78 - 100 fL 07/14/2024 12:04 AM CDT [facility] MCH 32.2 26.5 - 33.0 pg 07/14/2024 12:04 AM CDT [facility] MCHC 33.2 31.5 - 36.5 g/dL 07/14/2024 12:04 AM CDT [facility] RDW 16.1(H) 10.0 - 15.0 % 07/14/2024 12:04 AM CDT [facility] Platelet Count 351 150 - 450 10e3/uL 07/14/2024 12:04 AM CDT [facility] % Neutrophils 50 % 07/14/2024 12:04 AM CDT [facility] % Lymphocytes 35 % 07/14/2024 12:04 AM CDT [facility] % Monocytes 12 % 07/14/2024 12:04 AM CDT [facility] % Eosinophils 2 % 07/14/2024 12:04 AM CDT [facility] % Basophils 1 % 07/14/2024 12:04 AM CDT [facility] % Immature Granulocytes 0 % 07/14/2024 12:04 AM CDT [facility] NRBCs per 100 WBC 0 <1 /100 025 12:04 AM CDT [facility] Absolute Neutrophils 6.5 1.6 - 8.3 10e3/uL 07/14/2024 12:04 AM CDT [facility] Absolute Lymphocytes 4.6 0.8 - 5.3 10e3/uL 07/14/2024 12:04 AM CDT [facility] Absolute Monocytes 1.6(H) 0.0 - 1.3 10e3/uL 07/14/2024 12:04 AM CDT [facility] Absolute Eosinophils 0.2 0.0 - 0.7 10e3/uL 07/14/2024 12:04 AM CDT [facility] Absolute Basophils 0.1 0.0 - 0.2 10e3/uL 07/14/2024 12:04 AM CDT [facility] Absolute Immature Granulocytes 0.0 <=0.4 10e3/uL 07/14/2024 12:04 AM CDT [facility] Absolute NRBCs 0.1 10e3/uL 07/14/2024 12:04 AM CDT [facility] Blood BLOOD SPECIMEN / Unknown Venipuncture / Unknown 07/13/2024 11:21 PM CDT 07/13/2024 11:33 PM CDT us Jayden Adhikari MD LAB - BLOOD ORDERABLES Final Result [facility] [place] [facility] [address] [facility], [address] [place] [phone], [facility] * (ABNORMAL) Comprehensive metabolic panel (07/13/2024 11:21 PM CDT) Pathologist [facility] Sodium 136 135 - 145 mmol/L 07/14/2024 4:53 AM CDT [facility] Potassium 4.0 3.4 - 5.3 mmol/L 07/14/2024 4:53 AM CDT [facility] Carbon Dioxide (CO2) 22 22 - 29 mmol/L 07/14/2024 4:53 AM CDT [facility] Anion Gap 10 7 - 15 mmol/L 07/14/2024 4:53 AM CDT [facility] Urea Nitrogen 6.8 6.0 - 20.0 mg/dL 07/14/2024 4:53 AM CDT [facility] Creatinine 0.67 0.51 - 0.95 mg/dL 07/14/2024 4:53 AM CDT [facility] GFR Estimate >90 >60 mL/min/1.7 3m2 07/14/2024 4:53 AM CDT [facility] Comment:eGFR calculated us2020 CKD-EPI equation. Calcium 8.9 8.8 - 10.4 mg/dL 07/14/2024 4:53 AM CDT [facility] Chloride 104 98 - 107 mmol/L 07/14/2024 4:53 AM CDT [facility] Glucose 110(H) 70 - 99 mg/dL 07/14/2024 4:53 AM CDT [facility] Alkaline Phosphatase 91 40 - 150 U/L 07/14/2024 4:53 AM CDT [facility] AST 36 0 - 45 U/L 07/14/2024 4:53 AM CDT [facility] ALT 22 0 - 50 U/L 07/14/2024 4:53 AM CDT [facility] Protein Total 7.6 6.4 - 8.3 g/dL 07/14/2024 4:53 AM CDT [facility] Albumin 4.2 3.5 - 5.2 g/dL 07/14/2024 4:53 AM CDT [facility] Bilirubin Total 1.4(H) <=1.2 mg/dL 07/14/2024 4:53 AM CDT [facility] Blood BLOOD SPECIMEN / Unknown Venipuncture / Unknown 07/13/2024 11:21 PM CDT 07/13/2024 11:32 PM CDT Jayden Adhikari MD LAB - BLOOD ORDERABLES Final Result [facility] [address] [facility] [place] [phone], [facility] [address] [facility], [address] [place] [phone], [facility] * (ABNORMAL) Reticulocyte count (07/13/2024 11:21 PM CDT) Pathologist [facility] % Reticulocyte 6.6(H) 0.5 - 2.0 % 07/13/2024 11:39 PM CDT [facility] Absolute Reticulocyte 0.198(H) 0.025 - 0.095 10e6/uL 07/13/2024 11:39 PM CDT [facility] Blood BLOOD SPECIMEN / Unknown Venipuncture / Unknown 07/13/2024 11:21 PM CDT 07/13/2024 11:33 PM CDT us Jayden Adhikari MD LAB - BLOOD ORDERABLES Final Result [facility] [place] [facility] [address] [facility], [address] [place] [phone], [facility] documented in this encounter Visit Diagnoses Diagnosis 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 documented in this encounter Administered Medications Inactive Administered Medications - up to 3 most recent administrations Medication Order MAR Action Action Date Dose Rate Site diphenhydrAMINE (BENADRYL) capsule 25 mg 25 mg, Oral, EVERY 6 HOURS PRN, itching, Starting on Wed07/13/24 at 2253 $Given 07/13/2024 11:15 PM CDT 25 mg heparin lock flush 100 unit/mL injection 5-10 mL 5-10 mL, Intracatheter, EVERY 28 DAYS, First dose on Wed07/14/24 at 0125, To de-access each port in dual implanted port. Flush with 10 mL NS sodium chloride 0.9% flush followed by 5 mL heparin (100 units/mL) at discharge and at least every 28 days. MAX: 5 mL per each port lumen $Given 07/14/2024 1:32 AM CDT 5 mLs hydromorphone (DILAUDID) injection 2 mg 2 mg, Intravenous, EVERY 1 HOUR PRN, severe pain, Starting on Wed07/13/24 at 2252, For 3 doses $Given 07/14/2024 1:16 AM CDT 2 mg $Given 07/14/2024 12:12 AM CDT 2 mg $Given 07/13/2024 11:16 PM CDT 2 mg lactated ringers BOLUS 1,000 mL Intravenous, 1,000 mL, ONCE, at 500 mL/hr, Administer over 2 Hours, On Wed07/13/24 at 2255, For 1 dose $New Bag 07/13/2024 11:16 PM CDT 1,000 mLs 500 mL/hr ondansetron (ZOFRAN) injection 8 mg 8 mg, Intravenous, ONCE PRN, nausea/vomiting - 1st line, Administer over 2-5 Minutes, Starting on Citlali 07/13/24 at 2253, For 1 dose $Given 07/13/2024 11:15 PM CDT 8 mg documented in this encounter Active and Recently Administered Medications Times are shown in CDT. Scheduled Medication Order 07/12/2024 07/13/2024 07/14/2024 heparin lock flush 100 unit/mL injection 5-10 mL 5-10 mL, Intracatheter, EVERY 28 DAYS, First dose on Wed07/14/24 at 0125, To de-access each port in dual implanted port. Flush with 10 mL NS sodium chloride 0.9% flush followed by 5 mL heparin (100 units/mL) at discharge and at least every 28 days. MAX: 5 mL per each port lumen 0132 ($Given - Provi nas: Marilin Kidd RN) lactated ringers BOLUS 1,000 mL (COMPLETED) Intravenous, 1,000 mL, ONCE, at 500 mL/hr, Administer over 2 Hours, On Citlali 07/13/24 at 2255, For 1 dose 2316 ($New Bag - Provider: Rachel Keller RN) 0118 (Stopped - Provider: Marilin Kidd, SOFIA) PRN Medication Order 07/12/2024 07/13/2024 07/14/2024 diphenhydrAMINE (BENADRYL) capsule 25 mg 25 mg, Oral, EVERY 6 HOURS PRN, itching, Starting on Citlali 07/13/24 at 2253 2315 ($Given - Provider: Rachel Keller RN) hydromorphone (DILAUDID) injection 2 mg (COMPLETED) 2 mg, Intravenous, EVERY 1 HOUR PRN, severe pain, Starting on Citlali 07/13/24 at 2252, For 3 doses 2316 ($Given - Provider: Rachel Keller RN) 0012 ($Given - Provider: Marilin Kidd RN)0116 ($Given - Provider: Marilin Kidd, SOFIA) ondansetron (ZOFRAN) injection 8 mg (COMPLETED) 8 mg, Intravenous, ONCE PRN, nausea/vomiting - 1st line, Administer over 2-5 Minutes, Starting on Citlali 07/13/24 at 2253, For 1 dose 2315 ($Given - Provider: Rachel Keller, SOFIA) documented in this encounter Care Teams Refrigerating Technician Relationship Specialty Start Date End Date Veronica Joseph MD [address] [place] [address] PCP - General Family Medicine 06/18/24 Mor Ramsey Medical Student 04/03/24 Case Samuel MD [address] [place] [address], [address] [place], [place] [phone] Assigned Pediatric Specialist Provider 05/18/24 Juhi Benson, SOFIA Specialty Refinery Operator [facility] Hematology & Oncology 05/29/24 documented as of this encounter
--- OUTSIDE RECORDS SUMMARY | 2024-07-28 20:49 | XMS_ITS | Encounter Summary ---
Author Organization [facility] Address [address] [place] [address]. [place] [address] Care Team Providers Care Trench Pipe Layer Helper Name Role Phone RoxyElvirac Unavailable Unavailable Case Samuel MD Unavailable [phone] Juhi Benson RN Unavailable Unavailable Veronica Joseph MD Primary Care Provider [phone] Reason for Visit * Reason Comments Sickle Cell Pain Crisis Pt reports pain in her back and b/l lower extremities. * Auth/Cert Specialty Diagnoses / Procedures Referred By Contac t Referred To Contact EMERGENCY MEDICINE Diagnoses Acute pulmonary embolism without acute cor pulmonale, unspecified pulmonary embolism type (H) Sickle cell pain crisis (H) [facility] Emergency Department [address] [place] [address] Phone: tel: Referral ID Status Reason Start Date Expiration Date Visits Re quested Visits Authorized [id number] 1 1 Encounter Details Date Type Department Care Team ([facility] Contact Info) Description 06/24/2024 9:28 AM ANALYTICS INTERN - 06/24/2024 1:05 PM ANALYTICS INTERN Emergency [facility] Emergency Department [address] [place] [phone] Richar Mahajan MD [facility] [place] [address] Sickle cell disease with crisis (H) Discharge [...] on file Legal Sex Female 8:25 AM ANALYTICS INTERN Gender Identity Not on file Sexual Orientation Not on file documented as of this encounter Last Filed Vital Signs Vital Sign Reading Time Taken Comments Blood Pressure 111/67 06/24/2024 11:56 AM ANALYTICS INTERN Pulse 101 06/24/2024 12:11 PM ANALYTICS INTERN Temperature 36.9 C (98.4 F) 06/24/2024 9:26 AM ANALYTICS INTERN Respiratory Rate 16 06/24/2024 9:26 AM ANALYTICS INTERN Oxygen Saturation 100% 06/24/2024 12:11 PM ANALYTICS INTERN Inhaled Oxygen Concentration - - Weight 52.2 kg (115 lb) 06/24/2024 9:26 AM ANALYTICS INTERN Height 154.9 cm (5' 1) 06/24/2024 9:26 AM ANALYTICS INTERN Body Mass Index 21.73 06/24/2024 9:26 AM ANALYTICS INTERN documented in this encounter Discharge Instructions * Discharge Instructions* Richar Mahajan MD - 06/24/2024 12:57 PM ANALYTICS INTERN Home. Continue home care. Follow up with [...] Negative Ketones Urine Negative Negative mg/dL Specific [place] Urine 1.009 1.003 - 1.035 Blood Urine [...] Status --------- ------ CBC with platelets and d...[[id number]] Abnormal Final result Please view results for these tests on the individual orders. YTICS INTERN * Attachments The following attachments cannot be [...] 05/01/2024 naloxone (NARCAN) 4 MG/0.1ML nasal spray [place] 1 spray (4 mg) into one nostril [...] extremities. Triage Assessment (Adult) Row Name 06/24/24 0927 Triage Assessment Airway WDL WDL Respiratory WDL Respiratory WDL WDL Skin Circulation/Temperature WDL Skin Circulation/Temperature WDL WDL Cardiac WDL Cardiac WDL WDL Peripheral/Neurovascular WDL Peripheral Neurovascular WDL WDL Cognitive/Neuro/Behavioral WDL Cognitive/Neuro/Behavioral WDL WDL YTICS INTERN * Richar Mahajan MD - 06/24/2024 9:16 AM CST Images from the original note were not included. 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 [...] Course, Procedures, & Data Records reviewed in [facility] as noted refer to HPI also care [...] Negative Ketones Urine Negative Negative mg/dL Specific [place] Urine 1.009 1.003 - 1.035 Blood Urine [...] Status --------- ------ CBC with platelets and d...[[id number]] Abnormal Final result Please view results for [...] Bilirubin Urine Negative Ketones Urine Negative Specific [place] Urine 1.009 Blood Urine Negative pH Urine [...] diagnoses: Sickle cell disease with crisis (H) Thelma Long, am serving as a trained medical case worker to document services personally performed by Rihcar Mahajan MD based on the provider's statements to me on June 24, 2024. This document has been checked and approved by the attending provider. Mercedes Richar Mahajan MD, was physically present and have reviewed and verified the accuracy of thisnote documented by Thelma Haines, medical case worker. Richar Mahajan MD [facility] 06/24/2024 This note was created at least in part by the use of [employer] voice dictation system. Inadvertent typographical errors may still exist. Richar Mahajan MD. Patient evaluated in the emergency department during the COVID-19 pandemic period. Careful attention to patients safety was addressed throughout the evaluation. Evaluation and treatment management was initiated with disposition made efficiently and appropriate as possible to minimize any risk of potential exposure to patient during this evaluation. Richar Mahajan MD 06/24/242108 YTICS INTERN documented in this encounter Plan of Treatment Upcoming Encounters Date Type Department Care Team (Late st Contact Info) Description 08/07/2024 7:15 AM CDT Lab [facility] [address] [place] [phone] Case Samuel MD [address] [place] [address], [address] [place] [phone] 08/08/2024 8:00 AM CDT Appointment [facility] [address] [phone] Case Samuel MD [address] [place] [address], ROOM [address] [address] 10/30/2024 11:30 AM CDT Lab [facility] [address] [phone] Case Samuel MD [address] [place] [address], ROOM [address] [address] 10/30/2024 12:00 PM CDT Oncology Visit [facility] [address] [place] [address] Case Samuel MD [address] [place] [address], [address] [place] [address] documented as of this encounter Goals Goal [...] REFLEX TO CULTURE STAT 06/24/2024 10:15 AM ANALYTICS INTERN CBC WITH PLATELETS AND DIFFERENTIAL STAT 06/24/2024 10:11 AM ANALYTICS INTERN CBC WITH PLATELETS & DIFFERENTIAL STAT 06/24/2024 10:11 AM ANALYTICS INTERN RETICULOCYTE COUNT STAT 06/24/2024 10 :11 AM ANALYTICS INTERN INR STAT 06/24/2024 10:11 AM ANALYTICS INTERN PARTIAL THROMBOPLASTIN TIME STAT 06/24/2024 10:11 AM ANALYTICS INTERN MAGNESIUM STAT 06/24/2024 10:11 AM ANALYTICS INTERN HCG QUALITATIVE STAT 06/24/2024 10:11 AM ANALYTICS INTERN COMPREHENSIVE METABOLIC PANEL STAT 06/24/2024 10:11 AM ANALYTICS INTERN documented in this encounter Results * (ABNORMAL) UA with Microscopic reflex to Culture (06/24/2024 10:15 AM ANALYTICS INTERN) Color Urine Light Yellow Colorless, Straw, Light Yellow, Yellow 06/24/2024 10:25 AM ANALYTICS INTERN [facility] Appearance Urine Clear Clear 06/25/19 10:25 AM ANALYTICS INTERN [facility] Glucose Urine Negative Negative mg/dL 06/24/2024 10:25 AM ANALYTICS INTERN [facility] Bilirubin Urine Negative Negative 10:25 AM ANALYTICS INTERN [facility] Ketones Urine Negative Negative mg/dL 06/24/2024 10:25 AM ANALYTICS INTERN [facility] Specific [place] Urine 1.009 1.003 - 1.035 06/24/2024 10:25 AM ANALYTICS INTERN [facility] Blood Urine Negative Negative 06/24/2024 10:25 AM ANALYTICS INTERN [facility] pH Urine 7.5(H) 5.0 - 7.0 06/24/2024 10:25 AM ANALYTICS INTERN [facility] Protein Albumin Urine Negative Negative mg/dL 06/24/2024 10:25 AM ANALYTICS INTERN [facility] Urobilinogen Urine Normal Normal, 2.0 mg/dL 06/24/2024 10:25 AM ANALYTICS INTERN [facility] Nitrite Urine Negative Negative 06/24/2024 10:25 AM ANALYTICS INTERN [facility] Leukocyte Esterase Urine Negative Negative 06/24/2024 10:25 AM ANALYTICS INTERN [facility] RBC Urine <1 <=2 /HPF 06/24/2024 10:25 AM ANALYTICS INTERN [facility] WBC Urine <1 <=5 /HPF 06/24/2024 10:25 AM ANALYTICS INTERN [facility] Squamous Epithelials Urine 11(H) <=1 /HPF 06/24/2024 10:25 AM ANALYTICS INTERN [facility] Hyaline Casts Urine 1 <=2 /LPF 06/24/2024 10:25 AM ANALYTICS INTERN [facility] Urine MID-STREAM URINE SPECIMEN / Unknown Non-blood Collection / Unknown 06/24/2024 10:15 AM ANALYTICS INTERN 06/24/2024 10:20 AM ANALYTICS INTERN Narrative [facility] - 06/24/2024 10:25 AM ANALYTICS INTERN Urine Culture not indicated us Richar Mahajan MD LAB - URINE ORDERABLES Liss bola Result [facility] [address] [facility], [address] [place] [phone] * (ABNORMAL) CBC with platelets and differential (06/24/2024 10:11 AM ANALYTICS INTERN) WBC Count 7.8 4.0 - 11.0 10e3/uL 06/24/2024 10:28 AM ANALYTICS INTERN [facility] RBC Count 2.49(L) 3.80 - 5.20 10e6/uL 06/24/2024 10:28 AM ANALYTICS INTERN [facility] Hemoglobin 7.9(L) 11.7 - 15.7 g/dL 06/24/2024 10:28 AM ANALYTICS INTERN [facility] Hematocrit 24.8(L) 35.0 - 47.0 % 06/24/2024 10:28 AM ANALYTICS INTERN [facility] MCV 100 78 - 100 fL 06/24/2024 10:28 AM ANALYTICS INTERN [facility] MCH 31.7 26.5 - 33.0 pg 06/24/2024 10:28 AM ANALYTICS INTERN [facility] MCHC 31.9 31.5 - 36.5 g/dL 06/24/2024 10:28 AM ANALYTICS INTERN [facility] RDW 19.0(H) 10.0 - 15.0 % 06/24/2024 10:28 AM ANALYTICS INTERN [facility] Platelet Count 482(H) 150 - 450 10e3/uL 06/24/2024 10:28 AM ANALYTICS INTERN [facility] % Neutrophils 61 % 06/24/2024 10:28 AM ANALYTICS INTERN [facility] % Lymphocytes 26 % 06/24/2024 10:28 AM ANALYTICS INTERN [facility] % Monocytes 9 % 06/24/2024 10:28 AM ANALYTICS INTERN [facility] % Eosinophils 1 % 06/24/2024 10:28 AM ANALYTICS INTERN [facility] % Basophils 2 % 06/24/2024 10:28 AM ANALYTICS INTERN [facility] % Immature Granulocytes 1 % 06/24/2024 10:28 AM ANALYTICS INTERN [facility] NRBCs per 100 WBC 5(H) <1 /100 025 10:28 AM ANALYTICS INTERN [facility] Absolute Neutrophils 4.8 1.6 - 8.3 10e3/uL 06/24/2024 10:28 AM ANALYTICS INTERN [facility] Absolute Lymphocytes 2.1 0.8 - 5.3 10e3/uL 06/24/2024 10:28 AM ANALYTICS INTERN [facility] Absolute Monocytes 0.7 0.0 - 1.3 10e3/uL 06/24/2024 10:28 AM ANALYTICS INTERN [facility] Absolute Eosinophils 0.1 0.0 - 0.7 10e3/uL 06/24/2024 10:28 AM ANALYTICS INTERN [facility] Absolute Basophils 0.1 0.0 - 0.2 10e3/uL 06/24/2024 10:28 AM ANALYTICS INTERN [facility] Absolute Immature Granulocytes 0.1 <=0.4 10e3/uL 06/24/2024 10:28 AM ANALYTICS INTERN [facility] Absolute NRBCs 0.4 10e3/uL 06/24/2024 10:28 AM ANALYTICS INTERN [facility] Blood BLOOD SPECIMEN / Unknown Venipuncture / Unknown 06/24/2024 10:11 AM ANALYTICS INTERN 06/24/2024 10:22 AM ANALYTICS INTERN Richar Mahajan MD LAB - BLOOD ORDERABLES Liss l Result [facility] [address] [place] [address], Room [address] [phone] * (ABNORMAL) Reticulocyte count (06/24/2024 10:11 AM ANALYTICS INTERN) Pathologist [facility] % Reticulocyte 11.2(H) 0.5 - 2.0 % 06/24/2024 10:28 AM ANALYTICS INTERN [facility] Absolute Reticulocyte 0.280(H) 0.025 - 0.095 10e6/uL 06/24/2024 10:28 AM ANALYTICS INTERN [facility] Blood BLOOD SPECIMEN / Unknown Venipuncture / Unknown 06/24/2024 10:11 AM ANALYTICS INTERN 06/24/2024 10:22 AM ANALYTICS INTERN Richar Mahajan MD LAB - BLOOD ORDERABLES Liss l Result [facility] [address] [facility], Room [address] * HCG qualitative Blood (06/24/2024 10:11 AM ANALYTICS INTERN) [facility] hCG Serum Qualitative Negative Negative JARET 06/24/2024 10:33 AM ANALYTICS INTERN [facility] Comment:This test is for scr eening purposes. Results should be interpreted along with the clinical picture. Confirmation testing is available if warranted by ordering [id number], HCG Quantitative . Blood BLOOD SPECIMEN / Unknown Venipuncture / Unknown 06/24/2024 10:11 AM ANALYTICS INTERN 06/24/2024 10:20 AM ANALYTICS INTERN Richar Mahajan MD LAB - BLOOD ORDERABLES Liss l Result Performing Organization Address City/[facility]/ZIP Co de Phone Number [facility] [address] [facility], Room [address] * Magnesium (06/24/2024 10:11 AM ANALYTICS INTERN) [facility] Magnesium 2.1 1.7 - 2.3 mg/dL 06/24/2024 10:51 AM ANALYTICS INTERN [facility] Blood BLOOD SPECIMEN / Unknown Venipuncture / Unknown 06/24/2024 10:11 AM ANALYTICS INTERN 06/24/2024 10:21 AM ANALYTICS INTERN Richar Mahajan MD LAB - BLOOD ORDERABLES Liss l Result [facility] [address] [facility], Room [address] * (ABNORMAL) Comprehensive metabolic panel (06/24/2024 10:11 AM ANALYTICS INTERN) [facility] Sodium 138 135 - 145 mmol/L 06/24/2024 10:51 AM ANALYTICS INTERN [facility] Potassium 4.3 3.4 - 5.3 mmol/L 06/24/2024 10:51 AM ANALYTICS INTERN [facility] Carbon Dioxide (CO2) 20(L) 22 - 29 mmol/L 06/24/2024 10:51 AM ANALYTICS INTERN [facility] Anion Gap 10 7 - 15 mmol/L 06/24/2024 10:51 AM ANALYTICS INTERN [facility] Urea Nitrogen 9.9 6.0 - 20.0 mg/dL 06/24/2024 10:51 AM ANALYTICS INTERN [facility] Creatinine 0.62 0.51 - 0.95 mg/dL 06/24/2024 10:51 AM ANALYTICS INTERN [facility] GFR Estimate >90 >60 mL/min/1.7 3m2 06/24/2024 10:51 AM ANALYTICS INTERN [facility] Comment:eGFR calculated 2020 CKD-EPI equation. Calcium 8.7(L) 8.8 - 10.4 mg/dL 06/24/2024 10:51 AM ANALYTICS INTERN [facility] Chloride 108(H) 98 - 107 mmol/L 06/24/2024 10:51 AM ANALYTICS INTERN [facility] Glucose 98 70 - 99 mg/dL 06/24/2024 10:51 AM ANALYTICS INTERN [facility] Alkaline Phosphatase 119 40 - 150 U/L 06/24/2024 10:51 AM ANALYTICS INTERN [facility] AST 57(H) 0 - 45 U/L 06/24/2024 10:51 AM ANALYTICS INTERN [facility] ALT 53(H) 0 - 50 U/L 06/24/2024 10:51 AM ANALYTICS INTERN [facility] Protein Total 7.4 6.4 - 8.3 g/dL 06/24/2024 10:51 AM ANALYTICS INTERN [facility] Albumin 4.0 3.5 - 5.2 g/dL 06/24/2024 10:51 AM ANALYTICS INTERN [facility] Bilirubin Total 1.1 <=1.2 mg/dL 06/24/2024 10:51 AM ANALYTICS INTERN [facility] Blood BLOOD SPECIMEN / Unknown Venipuncture / Unknown 06/24/2024 10:11 AM ANALYTICS INTERN 06/24/2024 10:21 AM ANALYTICS INTERN Richar Mahajan MD LAB - BLOOD ORDERABLES Liss plaza Result [facility] [address] [facility], [address] [place] [phone] * (ABNORMAL) INR (06/24/2024 10:11 AM ANALYTICS INTERN) INR 1.45(H) 0.85 - 1.15 06/24/2024 10:54 AM ANALYTICS INTERN [facility] Blood BLOOD SPECIMEN / Unknown Venipuncture / Unknown 06/24/2024 10:11 AM ANALYTICS INTERN 06/24/2024 10:21 AM ANALYTICS INTERN Richar Mahajan MD LAB - BLOOD ORDERABLES Liss l Result [facility] [address] [facility], Room [address] * Partial thromboplastin time (06/24/2024 10:11 AM ANALYTICS INTERN) aPTT 32 22 - 38 Seconds 06/24/2024 10:55 AM ANALYTICS INTERN [facility] Blood BLOOD SPECIMEN / Unknown Venipuncture / Unknown 06/24/2024 10:11 AM ANALYTICS INTERN 06/24/2024 10:21 AM ANALYTICS INTERN Richar Mahajan MD LAB - BLOOD ORDERABLES Liss l Result Performing Organization Address City/[facility]/ZIP Co de Phone Number LABORATORY [facility] [address] [facility], [address] documented in this encounter Visit Diagnoses Diagnosis Sickle cell disease with crisis (H) Hb-SS disease with crisis documented in this encounter Administered Medications Inactive Administered Medications - up to 3 most recent administrations Medication Order MAR Action Action Date Dose Rate Site diphenhydrAMINE (BENADRYL) capsule 50 mg 50 mg, Oral, ONCE, On 06/24/24 at 0935, For 1 dose $Given 06/24/2024 10:20 AM ANALYTICS INTERN 50 mg hydromorphone (DILAUDID) injection 2 mg 2 mg, Intravenous, EVERY 1 HOUR PRN, severe pain, Starting on 06/24/24 at 0933, For 3 doses $Given 06/24/2024 12:41 PM ANALYTICS INTERN 2 mg $Given 06/24/2024 11:21 AM ANALYTICS INTERN 2 mg $Given 06/24/2024 10:19 AM ANALYTICS INTERN 2 mg lactated ringers BOLUS 1,000 mL Intravenous, 1,000 mL, ONCE, at 500 mL/hr, Administer over 2 Hours, On 06/24/24 at 0935, For 1 dose $New Bag 06/24/2024 10:20 AM ANALYTICS INTERN 1,000 mLs 500 mL/hr lidocaine (LMX4) cream [...] For 1 dose $Given 06/24/2024 10:19 AM ANALYTICS INTERN 8 mg sodium chloride (PF) 0.9% PF flush 3 mL 3 mL, Intracatheter, EVERY 8 HOURS, First dose on 06/24/24 at 0935, to lock peripheral IV dormant line $Given 06/24/2024 10:14 AM ANALYTICS INTERN 3 mLs sodium chloride (PF) 0.9% PF flush 3 mL 3 mL, Intracatheter, EVERY 1 MIN PRN, line flush, other, to ensure patency or to lock dormant line, Starting on 06/24/24 at 0930 documented in this encounter Active and Recently Administered Medications Times are shown in ANALYTICS INTERN. Scheduled Medication Order 06/22/2024 06/23/2024 06/24/2024 diphenhydrAMINE [...] 0930 documented in this encounter Care Teams Trench Pipe Layer Helper Relationship Specialty Start Date End Date Veronica Joseph MD [address] [place] [address] PCP - General Family Medicine 06/18/24 Mor Ramsey Medical Student 04/03/24 Case Samuel MD [address] [place] [address], [address] [place] [address] Assigned Pediatric Specialist Provider 05/18/24 Juhi Benson, SOFIA Specialty Manager Outpatient Hematology & Oncology 05/29/24 documented as of this encounter
--- OUTSIDE RECORDS SUMMARY | 2024-07-28 20:49 | XMS_ITS | Clinical Summary ---
Author Organization [facility] Address [address] [place] [address] Care Team Providers Care Press Secretary Name Role Phone Roxy Mor Unavailable Unavailable Case Samuel MD Unavailable [phone] Juhi Benson RN Unavailable Unavailable Veronica Joseph MD Primary Care Provider [phone] Allergies Active Allergy Reactions Criticality Noted Date [...] tablet by mouth daily. 30 tablet 11 05/01/19 25 Active FLUoxetine (PROZAC) 10 MG capsuleIndication s:Severe episode of recurrent major depressive disorder, without psychotic features (H) Take 1 capsule (10 mg) by mouth daily. 40 capsule 1 05/29/19 25 Active naloxone (NARCAN) 4 MG/0.1ML nasal spray Frederic 1 spray (4 mg) into one nostril [...] daily. 178 tablet 06/30/19 25 025 Active FLUoxetine (PROZAC) 20 MG capsuleIndication s:Severe episode of recurrent major depressive disorder, without psychotic features (H) Take 1 capsule (20 mg) by mouth daily. 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 45 tablet 07/12/19 25 025 Discontin ued(Reord er (No AVS)) [...] from [place] Sickle Cell Disease History Primary [employer]/PA: Lizzie Genotype: SS Acute Pain Crisis Treatment: [...] Encounters Date Type Department Care Team Description 07/27/2024 7:12 PM CDT - 07/27/2024 11:16 PM CDT Emergency [facility] Emergency Department [address] [place] [phone] Payal Arriaga, Sickle cell pain crisis (H); Chest pain, unspecified type; Acute bilateral thoracic back pain Discharge Disposition: Home or Self Care 07/26/2024 8:38 PM CDT - 07/27/2024 1:05 AM CDT Emergency [facility] Emergency Department [address] [place] [phone] Abdelrahman Goddard MD Gingras, Alexa M, DO Sickle cell disease with crisis (H) Discharge Disposition: Home or Self Care 07/26/2024 Travel 07/25/2024 7:48 PM CDT - 07/25/2024 11:26 PM CDT Emergency [facility] Emergency Department [address] [place] [address] Emanuel Chester MD Sickle cell pain crisis (H) Discharge Disposition: Home or Self Care 07/25/2024 Travel 07/20/2024 10:32 AM CDT - 07/20/2024 1:57 PM CDT Emergency [facility] Emergency Department [address] [place] [address] Payal Arriaga DO Sickle cell pain crisis (H); Bilateral leg pain; Acute bilateral back pain, unspecified back location Discharge Disposition: Home or Self Care 07/20/2024 Travel 07/19/2024 2:47 AM CDT - 07/19/2024 6:48 AM CDT Emergency [facility] Emergency Department [address] [place] [address] Keshia Schofield MD Sickle cell pain crisis (H) Discharge Disposition: Home or Self Care 07/19/2024 Travel 07/18/2024 11:21 AM CDT - 07/18/2024 2:47 PM CDT Emergency [facility] Emergency Department [address] [place] [address] Dave Mcfarlane MD Sickle cell pain crisis (H) Discharge Disposition: Home or Self Care 07/18/2024 Travel 07/18/2024 Refill [facility] [address] [phone] Tatiana Cohen CNP Refill Request 07/17/2024 2:30 PM CDT Infusion Therapy Visit [facility] [address] [phone] Tatiana Cohen CNP Sickle cell pain crisis (H) (Primary Dx) 07/17/2024 1:45 PM CDT Oncology Visit [facility] [address] [phone] Tatiana Cohen CNP Sickle cell pain crisis (H) (Primary Dx); Severe episode of recurrent major depressive disorder, without psychotic features (H) 07/16/2024 8:33 PM CDT - 07/17/2024 12:58 AM CDT Emergency [facility] Emergency Department [address] [place] [address] Polly Naylor MD Sickle cell disease with crisis (H); Chest pain, unspecified type Discharge Disposition: Home or Self Care 07/16/2024 Travel 07/13/2024 10:02 PM CDT - 07/14/2024 1:55 AM CDT Emergency [facility] Emergency Department [address] [place] [address] Jayden Adhikari MD Sickle cell pain crisis (H) Discharge Disposition: Home or Self Care 07/13/2024 Travel 07/11/2024 3:03 PM CDT - 07/11/2024 7:35 PM CDT Emergency [facility] Emergency Department [address] [place] [address] Ana Troy MD Sickle cell pain crisis (H) Discharge Disposition: Home or Self Care 07/11/2024 Travel 07/10/2024 7:00 PM CDT - 07/10/2024 11:30 PM CDT Emergency [facility] Emergency Department [address] [place] [address] Alex Morton MD Sickle cell pain crisis (H); Chest pain Discharge Disposition: Home or Self Care 07/10/2024 Travel 07/10/[address] [facility] [address] [phone] Case Samuel MD Refill Request 07/09/2024 2:34 AM CDT - 07/09/2024 5:41 AM CDT Emergency [facility] Emergency Department [address] [place] [address] Shauna Calle DO Sickle cell pain crisis (H) Discharge Disposition: Home or Self Care 07/09/2024 Travel 07/07/2024 9:13 PM CDT - 07/08/2024 12:23 AM CDT Emergency [facility] Emergency Room [facility] [place] [address] Octavio Garcia MD Abney-Lidahl, Deborah, MD Sickle cell pain crisis (H) Discharge Disposition: Home or Self Care 07/07/2024 Travel 07/06/2024 9:00 AM CDT Infusion Therapy Visit [facility] [address] [place] [phone] Case Samuel MD Sickle cell pain crisis (H) (Primary Dx) 07/06/2024 7:51 AM CDT - 07/06/2024 11:59 PM CDT Hospital Encounter 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) Discharge Disposition: Home or Self Care 07/04/2024 Travel 07/04/[address] [phone] Case Samuel MD Refill Request 07/02/2024 5:47 PM CDT - 07/02/2024 9:37 PM CDT Emergency [facility] Emergency Department [address] [place] [address] Vasiliy Lutz DO Sickle cell pain crisis (H) Discharge Disposition: Home or Self Care 07/02/2024 Travel 07/01/2024 6:18 PM STICK WELDER - 07/01/2024 9:43 PM [facility] Emergency [facility] Emergency Department [address] [place] [address] Andres Tejada MD Sickle cell pain crisis (H) Discharge Disposition: Home or Self Care 07/01/2024 Travel 06/29/[address] [phone] Case Samuel MD Refill Request 06/26/2024 1:51 PM STICK WELDER - 06/29/2024 11:11 AM [facility] Hospital Encounter [facility] Emergency Department [address] [place] [address] Jayden Adhikari MD Pal, Suman, MD Diehl, Matthew, MD Acute pulmonary embolism without acute cor pulmonale, unspecified pulmonary embolism type (H); Sickle cell pain crisis (H) Discharge Disposition: Home or Self Care 06/26/2024 Travel 06/25/2024 9:50 PM STICK WELDER - 06/26/2024 1:11 AM [facility] Emergency [facility] Emergency Department [address] [place] [address] Polly Naylor MD Tschohl, Melissa Ann, MD Sickle cell disease with crisis (H); Chest pain, unspecified type Discharge Disposition: Home or Self Care 06/25/2024 Travel 06/24/2024 9:28 AM STICK WELDER - 06/24/2024 1:05 PM [facility] Emergency [facility] Emergency Department [address] [place] [address] Richar Mahajan MD Sickle cell disease with crisis (H) Discharge Disposition: Home or Self Care 06/24/2024 Travel 06/23/2024 6:03 PM STICK WELDER - 06/23/2024 9:47 PM STICK WELDER Emergency [facility] Emergency Department [address] [place] [address] Dayna Crane MD Sickle cell disease with crisis (H) Discharge Disposition: Home or Self Care 06/23/2024 Travel 06/22/2024 5:23 PM STICK WELDER - 06/22/2024 10:02 PM STICK WELDER Emergency [facility] Emergency Department [address] [place] [address] Lynne Varner MD Sickle cell anemia with crisis (H) Discharge Disposition: Home or Self Care 06/22/2024 Travel 06/16/2024 4:46 PM STICK WELDER - 06/20/2024 11:00 AM STICK WELDER Hospital Encounter [facility] 7C Med Surg [address] [place] [address] Abimael Schofield MD Pal, Suman, MD Duffy, Briar, MD Sickle cell pain crisis (H) Discharge Disposition: Home or Self Care 06/16/2024 Travel 06/15/[address] 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 [address] [place] [phone] Case Samuel MD Sickle cell pain crisis (H) (Primary Dx) 06/09/2024 Travel 06/07/2024 1:30 PM STICK WELDER Infusion Therapy Visit [facility] [address] [phone] Case Samuel MD Fever (Primary Dx); Sickle cell pain crisis (H) 06/07/2024 10:00 AM STICK WELDER - 06/07/2024 10:45 AM STICK WELDER Emergency [facility] Emergency Room [address] [place] [phone] Bernabe Farley MD Chest pain, unspecified type; Fever, unspecified fever cause; Left against medical advice Discharge Disposition: Home or Self Care 06/07/2024 Travel 06/06/2024 9:41 AM STICK WELDER - 06/06/2024 1:29 PM STICK WELDER Emergency [facility] Emergency Room [address] [place] [phone] Marilia Summers MD Sickle cell pain crisis (H) Discharge Disposition: Home or Self Care 06/05/2024 11:41 AM STICK WELDER - 06/05/2024 3:28 PM STICK WELDER Emergency [facility] Emergency Room [address] [place] [phone] Stiven Madsen MD Palm, Steven J, MD Sickle cell pain crisis (H) Discharge Disposition: Home or Self Care 06/05/2024 Travel 06/05/2024 MyC Refill [facility] [address] [place] [phone] Case Samuel MD Refill Request 06/03/2024 3:22 PM STICK WELDER - 06/03/2024 5:30 PM STICK WELDER Emergency [facility] Emergency Room [address] [place] [phone] Jennifer Bell MD Sickle cell pain crisis (H) Discharge Disposition: Home or Self Care 06/03/2024 Travel 06/01/2024 11:41 PM STICK WELDER - 06/02/2024 2:35 AM STICK WELDER Emergency [facility] Emergency Room [address] [place] [phone] Noel Pinzon MD Sickle cell pain crisis (H) Discharge Disposition: Home or Self Care 06/01/2024 Travel 05/31/2024 9:56 PM STICK WELDER - 06/01/2024 12:46 AM STICK WELDER Emergency [facility] Emergency Room [address] [place] [phone] Carley Riggins MD Sickle cell pain crisis (H) Discharge Disposition: Home or Self Care 05/31/2024 Travel 05/30/2024 8:00 AM STICK WELDER Infusion Therapy Visit 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) 05/29/2024 Orders Only [facility] [address] [place] [phone] Juhi Benson RN Sickle cell pain crisis (H) (Primary Dx); 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) 05/29/2024 Travel 05/28/2024 11:56 PM STICK WELDER - 05/29/2024 3:54 AM STICK WELDER Emergency [facility] Emergency Room [address] [place] [phone] Lenin Smith MD Sickle cell disease with crisis (H) Discharge Disposition: Home or Self Care 05/28/2024 Travel 05/27/2024 11:58 AM STICK WELDER - 05/27/2024 6:07 PM [facility] Emergency [facility] Emergency Room [address] [place] [phone] Blas Mcclellan MD OhlMarly, Sickle cell disease with crisis (H) Discharge Disposition: Home or Self Care 05/27/2024 Travel 05/25/2024 10:53 AM STICK WELDER - 05/25/2024 4:00 PM [facility] Hospital Encounter [facility] Interventional Radiology [address] [place] [phone] Jaswinder Cooper MD 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) Discharge Disposition: Home or Self Care 05/23/2024 9:03 PM STICK WELDER - 05/23/2024 11:37 PM [facility] Emergency [facility] Emergency Room [address] [place] [phone] Marilia Summers MD Sickle cell pain crisis (H); Leukocytosis, unspecified type; Left-sided chest wall pain Discharge Disposition: Home or Self Care 05/23/2024 Travel 05/22/2024 3:27 PM STICK WELDER - 05/22/2024 6:55 PM [facility] Emergency [facility] Emergency Room [address] [place] [phone] Bernabe Farley MD Sickle cell pain crisis (H) Discharge Disposition: Home or Self Care 05/22/2024 MyC Refill [facility] [address] [place] [phone] Case Samuel MD Refill Request 05/22/2024 Travel 05/22/2024 MyC Medical Advice [facility] Interventional Radiology [address] [place] [phone] Yadi Mahan RN 05/20/2024 7:30 AM STICK WELDER - 05/20/2024 11:15 AM [facility] Emergency [facility] Emergency Room [address] [place] [phone] Stiven Madsen MD Sickle cell pain crisis (H) Discharge Disposition: Home or Self Care 05/20/2024 Travel 05/19/2024 2:10 AM STICK WELDER - 05/19/2024 6:06 AM [facility] Emergency [facility] Emergency Room [address] [place] [phone] Marilia Summers MD Sickle cell disease with crisis (H) Discharge Disposition: Home or Self Care 05/19/2024 Travel 05/16/2024 9:41 PM STICK WELDER - 05/17/2024 12:53 AM [facility] Emergency [facility] Emergency Room [address] [place] [phone] Guille Davis DO Sickle cell pain crisis (H) Discharge Disposition: Home or Self Care 05/16/2024 Travel 05/14/2024 10:07 PM STICK WELDER - 05/15/2024 12:14 AM [facility] Emergency [facility] Emergency Room [address] [place] [phone] Marguerite Ponce PA-C Sickle cell pain crisis (H) Discharge Disposition: Home or Self Care 05/14/2024 Travel 05/13/2024 3:56 PM STICK WELDER - 05/13/2024 7:56 PM [facility] Emergency [facility] Emergency Room [address] [place] [phone] Shaheen Unger MD Sickle cell pain crisis (H) Discharge Disposition: Home or Self Care 05/13/2024 Travel 05/08/2024 3:10 PM STICK WELDER - 05/08/2024 7:54 PM [facility] Emergency [facility] Emergency Room [address] [place] [phone] Polly Alcaraz MD Sickle cell pain crisis (H) Discharge Disposition: Home or Self Care 05/08/2024 Travel 05/08/2024 MyC Refill [facility] [address] [phone] Case Samuel MD Refill Request 05/06/2024 6:34 PM STICK WELDER - 05/06/2024 10:33 PM STICK WELDER Emergency [facility] Emergency Room [facility] [place] [phone] Noel Pinzon MD Sickle cell pain crisis (H) Discharge Disposition: Home or Self Care 05/06/2024 Travel 05/05/2024 11:10 AM STICK WELDER - 05/05/2024 2:25 PM STICK WELDER Emergency [facility] Emergency Room [address] [place] [phone] Star Gifford MD Sickle cell pain crisis (H) Discharge Disposition: Home or Self Care 05/05/2024 Travel 05/02/2024 8:23 AM STICK WELDER - 05/02/2024 8:54 AM STICK WELDER Emergency [facility] Emergency Department [address] [place] [address] Andres Tejada MD Discharge Disposition: Left Without Being Seen 05/02/[address] 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, with sickle cell retinopathy, unspecified laterality, unspecified whether proliferative (H); Sickle cell pain crisis (H) 05/01/2024 Orders Only [facility] [address] [place] [phone] Juhi Benson, RN 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) 05/01/2024 Travel from Last 3 Months Immunizations Name Administration Dates Next Due COVID-19 MONOVALENT 12+ (Pfizer) 02/27/2021,01/24 DTAP (<7y) 11/20/1999, 9,11/13/1995,10/05,03/08/1995,1994,1994 ,1994,1994 Flu, Unspecified 03/03/2023,03/07/2008 HIB, Unspecified 11/13/1995, 5,1994,10/17,1994,1994 HPV Quadrivalent 01/24/2009, 9,03/28/2008,12/01,06/16/2007,04/13/2007 HepA-Peds, Unspecified 08/31/2008,11/18/2007 HepB, Unspecified 06/07/1995,1994,10/14/18 95 Hepatitis A (Vaqta/Havrix)(P eds 12m-18y) 10/03/2008,04/13/2007 Hepatitis B, Peds (Engerix-B/Recombivax HB) 03/28/2008,1994,1994,04/11 Influenza (H1N1) 05/30/2009 Influenza (IIV3) PF 02/04/2010,02/08/2007,2004 Influenza Vaccine >6 months,quad, PF 01/15/2023, 04/30/2022,03/14/2020 Influenza, Split Virus, Triv alent, Pf (Fluzone\Fluarix) 02/09/2012,04/13/2011 MMR (MMRII) 07/18/1998,03/08/1995 Meningococcal ACWY (Menactra ) 04/13/2011,10/10/2007,01/18/2007 Polio, Unspecified 07/18/1998, 5,1994,10/14 Poliovirus, inactivated (IPV) 11/20/1999 ,11/13/1995,1994,08/01,1994 TDAP (Adacel,Boostrix) 01/18/2007 Varicella (Varivax) 11/18/2007, 7,01/14/1998,01/02 Family History Medical History Relation [...] on file Legal Sex Female 8:25 AM STICK WELDER Gender Identity Not on file Sexual [...] Mass Index 21.73 07/27/2024 7:07 PM CDT Plan of Treatment Upcoming Encounters Date Type Department Care Team (Late st Contact Info) Description 08/07/2024 7:15 AM CDT Lab [facility] [address] [phone] Case Samuel MD [address] [place] [address], ROOM [address] [phone] 08/08/2024 8:[address] [facility] [address] [phone] Case Samuel MD [address] [place] [address], [address] [place], [place] [phone] 10/30/2024 11:30 AM CDT Lab [facility] [address] [phone] Case Samuel MD [address] [place] [address], [address] [place] [address] 10/30/2024 12:00 PM CDT Oncology Visit [facility] [address] [place] [phone] Case Samuel MD [address] [facility], [address] [place], [place] [phone] Health Maintenance Due Date Last Done Comments [...] medication remaining. Medical Devices Implanted Type Area Power Station Operator Device Identifier Shelf Expiration Date Model / Serial / Lot Bard 9.6 Powerflow Apheresis Iv Port-05/25/2024 Implanted:Qty: 1 on 05/25/2024 by Myron Michel MD Port Right: Chest Wall BARD 08/23/2024 [id number] / / [id number] Description:Right chest Wall Apheresis Port 9.6FR (Power) 6frt Smartport-05/25 Implanted:Qty: 1 on 05/25/2024 by Myron Michel MD Port Left: Chest Wall [employer] 09/23/2026 [id number] / / [id number] Description:6FR SL SmartPort (Power - 300psi max) Procedures Procedure Name Priority Date/Time Associated Diagnosis Comments EKG 12-LEAD, TRACING ONLY STAT 07/27/2024 7:16 PM CDT HCG QUALITATIVE URINE STAT 07/26/2024 9:50 PM CDT CBC WITH PLATELETS & DIFFERENTIAL STAT 07/25/2024 8:24 PM CDT RBC AND PLATELET MORPHOLOGY STAT 07/25/2024 8:24 PM CDT CBC WITH PLATELETS AND DIFFERENTIAL STAT 07/25/2024 8:24 PM CDT RETICULOCYTE COUNT STAT 07/25/2024 8: 24 PM CDT TROPONIN T, HIGH SENSITIVITY STAT 07/25/2024 8:24 PM CDT COMPREHENSIVE METABOLIC PANEL STAT 07/25/2024 8:24 PM CDT EKG 12-LEAD, TRACING ONLY STAT 07/25/2024 7:55 PM CDT EKG 12-LEAD, TRACING ONLY STAT 07/19/2024 2:56 AM CDT CBC WITH PLATELETS & DIFFERENTIAL Routine 07/17/2024 1:38 PM CDT Sickle cell pain crisis (H) RBC AND PLATELET MORPHOLOGY Routine 07/17/2024 1:38 PM CDT Sickle cell pain crisis (H) CBC WITH PLATELETS AND DIFFERENTIAL Routine 07/17/2024 1:38 PM CDT Sickle cell pain crisis (H) BASIC METABOLIC PANEL Routine 07/17/2024 1:38 PM CDT Sickle cell pain crisis (H) CBC WITH PLATELETS & DIFFERENTIAL STAT 07/16/2024 9:57 PM CDT CBC WITH PLATELETS AND DIFFERENTIAL STAT 07/16/2024 9:57 PM CDT D DIMER QUANTITATIVE STAT 07/16/2024 9:57 PM CDT TROPONIN T, HIGH SENSITIVITY STAT 07/16/2024 9:57 PM CDT INR STAT 07/16/2024 9:57 PM CDT COMPREHENSIVE METABOLIC PANEL STAT 07/16/2024 9:57 PM CDT RETICULOCYTE COUNT STAT 07/16/2024 9: 57 PM CDT EKG 12-LEAD, TRACING ONLY STAT 07/16/2024 9:18 PM CDT XR CHEST 2 VIEWS STAT 07/16/2024 9:15 PM CDT CBC WITH PLATELETS & DIFFERENTIAL STAT 07/13/2024 11:21 PM CDT RBC AND PLATELET MORPHOLOGY STAT 07/13/2024 11:21 PM CDT CBC WITH PLATELETS AND DIFFERENTIAL STAT 07/13/2024 11:21 PM CDT COMPREHENSIVE METABOLIC PANEL STAT 07/13/2024 11:21 PM CDT RETICULOCYTE COUNT STAT 07/13/2024 11:21 PM CDT HCG QUALITATIVE URINE STAT 07/11/2024 6:08 PM CDT ROUTINE UA WITH MICROSCOPIC REFLEX TO CULTURE STAT 07/11/2024 6:08 PM CDT ABO/RH TYPE AND SCREEN STAT 4:15 PM CDT CBC WITH PLATELETS & DIFFERENTIAL STAT 07/11/2024 4:15 PM CDT TYPE AND SCREEN, ADULT STAT 4:15 PM CDT RETICULOCYTE COUNT Add-On 07/11/2024 4: 15 PM CDT CBC WITH PLATELETS AND DIFFERENTIAL STAT 07/11/2024 4:15 PM CDT COMPREHENSIVE METABOLIC PANEL STAT 07/11/2024 4:15 PM CDT INR STAT 07/11/2024 4:15 PM CDT CBC WITH PLATELETS & DIFFERENTIAL STAT 07/10/2024 8:16 PM CDT CBC WITH PLATELETS AND DIFFERENTIAL STAT 07/10/2024 8:16 PM CDT HCG QUALITATIVE STAT 07/10/2024 8:16 PM CDT TROPONIN T, HIGH SENSITIVITY STAT 07/10/2024 8:16 PM CDT COMPREHENSIVE METABOLIC PANEL STAT 07/10/2024 8:16 PM CDT XR CHEST 2 VIEWS STAT 07/10/2024 7:35 PM CDT EKG 12-LEAD, TRACING ONLY STAT 07/10/2024 7:26 PM CDT CBC WITH PLATELETS & DIFFERENTIAL STAT 07/09/2024 2:54 AM CDT MANUAL DIFFERENTIAL Routine 07/09/2024 2 :54 AM CDT RBC AND PLATELET MORPHOLOGY STAT 07/09/2024 2:54 AM CDT CBC WITH PLATELETS AND DIFFERENTIAL STAT 07/09/2024 2:54 AM CDT RETICULOCYTE COUNT STAT 07/09/2024 2: 54 AM CDT APHERESIS RED BLOOD CELL EXCHANGE Routine 07/06/2024 3:12 PM CDT HEMOGLOBIN S WITH REFLEX TO ACID GEL ELECTROPHORESIS Routine 07/06/2024 11:12 AM CDT HEMOGLOBIN AND HEMATOCRIT Routine 07/06/2024 11:12 AM CDT CBC WITH PLATELETS & DIFFERENTIAL Routine 07/06/2024 9:25 AM CDT Sickle cell pain crisis (H) CBC WITH PLATELETS AND DIFFERENTIAL Routine 07/06/2024 9:25 AM CDT Sickle cell pain crisis (H) BASIC METABOLIC PANEL Routine 07/06/2024 9:25 AM CDT Sickle cell pain crisis (H) HEMOGLOBIN S WITH REFLEX TO ACID GEL ELECTROPHORESIS Routine 07/06/2024 8:49 AM CDT HEMOGLOBIN AND HEMATOCRIT Routine 07/06/2024 8:49 AM CDT PREPARE RED BLOOD CELLS (UNIT) Routine 07/05/2024 11:35 PM CDT PREPARE RED BLOOD CELLS (UNIT) Routine 07/05/2024 11:35 PM CDT PREPARE RED BLOOD CELLS (UNIT) Routine 07/05/2024 11:35 PM CDT PREPARE RED BLOOD CELLS (UNIT) Routine 07/05/2024 11:35 PM CDT PREPARE RED BLOOD CELLS (UNIT) Routine 07/05/2024 11:35 PM CDT CBC WITH PLATELETS & DIFFERENTIAL STAT 07/05/2024 8:06 PM CDT CBC WITH PLATELETS AND DIFFERENTIAL STAT 07/05/2024 8:06 PM CDT RETICULOCYTE COUNT STAT 07/05/2024 8: 06 PM CDT BASIC METABOLIC PANEL STAT 07/05/2024 8:06 PM CDT XR CHEST 2 VIEWS STAT 07/05/2024 7:33 PM CDT EKG 12-LEAD, TRACING ONLY STAT 07/04/2024 5:25 PM CDT ABO/RH TYPE AND SCREEN STAT 5:23 PM CDT 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) CBC WITH PLATELETS & DIFFERENTIAL STAT 07/04/2024 5:23 PM CDT TYPE AND SCREEN, ADULT STAT 5:23 PM CDT 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) RBC AND PLATELET MORPHOLOGY STAT 07/04/2024 5:23 PM CDT CBC WITH PLATELETS AND DIFFERENTIAL STAT 07/04/2024 5:23 PM CDT RETICULOCYTE COUNT STAT 07/04/2024 5: 23 PM CDT TROPONIN T, HIGH SENSITIVITY STAT 07/04/2024 5:23 PM CDT COMPREHENSIVE METABOLIC PANEL STAT 07/04/2024 [...] PLATELETS & DIFFERENTIAL STAT 07/01/2024 8:00 PM STICK WELDER MANUAL DIFFERENTIAL STAT 07/01/2024 8 :00 PM STICK WELDER CBC WITH PLATELETS AND DIFFERENTIAL STAT 07/01/2024 8:00 PM STICK WELDER RETICULOCYTE COUNT STAT 07/01/2024 8: 00 PM STICK WELDER COMPREHENSIVE METABOLIC PANEL STAT 07/01/2024 8:00 PM STICK WELDER CBC WITH PLATELETS & DIFFERENTIAL STAT 06/29/2024 6:05 AM STICK WELDER EXTRA PURPLE TOP TUBE STAT 06/29/2024 6:05 AM STICK WELDER EXTRA TUBE STAT 06/29/2024 6:05 AM STICK WELDER CBC WITH PLATELETS AND DIFFERENTIAL STAT 06/29/2024 6:05 AM STICK WELDER COMPREHENSIVE METABOLIC PANEL STAT 06/29/2024 6:04 AM STICK WELDER CBC WITH PLATELETS & DIFFERENTIAL STAT 06/28/2024 6:06 AM STICK WELDER BILIRUBIN DIRECT Add-On 06/28/2024 6:06 AM STICK WELDER RBC AND PLATELET MORPHOLOGY STAT 06/28/2024 6:06 AM STICK WELDER CBC WITH PLATELETS AND DIFFERENTIAL STAT 06/28/2024 6:06 AM STICK WELDER RETICULOCYTE COUNT STAT 06/28/2024 6: 06 AM STICK WELDER LACTATE DEHYDROGENASE STAT 06/28/2024 6:06 AM STICK WELDER COMPREHENSIVE METABOLIC PANEL STAT 06/28/2024 6:06 AM STICK WELDER HEPARIN UNFRACTIONATED ANTI XA LEVEL STAT 06/28/2024 1:57 AM STICK WELDER HEPARIN UNFRACTIONATED ANTI XA LEVEL STAT 06/27/2024 7:14 PM STICK WELDER EXTRA GREEN TOP (LITHIUM HEPARIN) TUBE STAT 06/27/2024 5:55 PM STICK WELDER EXTRA TUBE STAT 06/27/2024 5:55 PM STICK WELDER ECHO COMPLETE Routine 06/27/2024 2:33 PM STICK WELDER HEPARIN UNFRACTIONATED ANTI XA LEVEL STAT 06/27/2024 12:39 PM STICK WELDER US LOWER EXTREMITY VENOUS DUPLEX BILATERAL STAT 06/27/2024 11:21 AM STICK WELDER INFLUENZA A/B, RSV AND SARS-COV2 PCR STAT 06/27/2024 8:43 AM STICK WELDER ROUTINE UA WITH MICROSCOPIC REFLEX TO CULTURE STAT 06/27/2024 8:12 AM STICK WELDER ABO/RH TYPE AND SCREEN Add-On 5:57 AM STICK WELDER CBC WITH PLATELETS & DIFFERENTIAL Add-On 06/27/2024 5:57 AM STICK WELDER TYPE AND SCREEN, ADULT Routine 5:57 AM STICK WELDER RBC AND PLATELET MORPHOLOGY STAT 06/27/2024 5:57 AM STICK WELDER CBC WITH PLATELETS AND DIFFERENTIAL Add-On 06/27/2024 5:57 AM STICK WELDER RETICULOCYTE COUNT Add-On 06/27/2024 5: 57 AM STICK WELDER HEPATIC FUNCTION PANEL Add-On 5:57 AM STICK WELDER CBC WITH PLATELETS STAT 06/27/2024 5: 57 AM STICK WELDER BASIC METABOLIC PANEL STAT 06/27/2024 5:57 AM STICK WELDER HEPARIN UNFRACTIONATED ANTI XA LEVEL STAT 06/27/2024 5:56 AM STICK WELDER HEPARIN UNFRACTIONATED ANTI XA LEVEL STAT 06/26/2024 10:46 PM STICK WELDER BLOOD CULTURE STAT 06/26/2024 6:46 PM STICK WELDER BLOOD CULTURE STAT 06/26/2024 6:46 PM STICK WELDER ERYTHROCYTE SEDIMENTATION RATE AUTO STAT 06/26/2024 6:46 PM STICK WELDER EKG 12-LEAD, TRACING ONLY STAT 06/26/2024 5:[address] CHEST PULMONARY EMBOLISM W CONTRAST STAT 06/26/2024 4:15 PM STICK WELDER XR CHEST 2 VIEWS STAT 06/26/2024 3:13 PM STICK WELDER ABO/RH TYPE AND SCREEN STAT 2:42 PM STICK WELDER CBC WITH PLATELETS & DIFFERENTIAL STAT 06/26/2024 2:42 PM STICK WELDER TYPE AND SCREEN, ADULT STAT 2:42 PM STICK WELDER PROCALCITONIN STAT 06/26/2024 2:42 PM STICK WELDER CRP INFLAMMATION Add-On 06/26/2024 2:42 PM STICK WELDER CBC WITH PLATELETS AND DIFFERENTIAL STAT 06/26/2024 2:42 PM STICK WELDER TROPONIN T, HIGH SENSITIVITY STAT 06/26/2024 2:42 PM STICK WELDER D DIMER QUANTITATIVE STAT 06/26/2024 2:42 PM STICK WELDER HCG QUALITATIVE STAT 06/26/2024 2:42 PM STICK WELDER BASIC METABOLIC PANEL STAT 06/26/2024 2:42 PM STICK WELDER XR CHEST 2 VIEWS STAT 06/25/2024 10:35 PM STICK WELDER EKG 12-LEAD, TRACING ONLY STAT 06/25/2024 10:19 PM STICK WELDER ROUTINE UA WITH MICROSCOPIC REFLEX TO CULTURE STAT 06/25/2024 10:16 PM STICK WELDER CBC WITH PLATELETS & DIFFERENTIAL STAT 06/25/2024 10:15 PM STICK WELDER CBC WITH PLATELETS AND DIFFERENTIAL STAT 06/25/2024 10:15 PM STICK WELDER TROPONIN T, HIGH SENSITIVITY STAT 06/25/2024 10:15 PM STICK WELDER BASIC METABOLIC PANEL STAT 06/25/2024 10:15 PM STICK WELDER ROUTINE UA WITH MICROSCOPIC REFLEX TO CULTURE STAT 06/24/2024 10:15 AM STICK WELDER CBC WITH PLATELETS & DIFFERENTIAL STAT 06/24/2024 10:11 AM STICK WELDER CBC WITH PLATELETS AND DIFFERENTIAL STAT 06/24/2024 10:11 AM STICK WELDER RETICULOCYTE COUNT STAT 06/24/2024 10:11 AM STICK WELDER HCG QUALITATIVE STAT 06/24/2024 10:11 AM STICK WELDER MAGNESIUM STAT 06/24/2024 10:11 AM STICK WELDER COMPREHENSIVE METABOLIC PANEL STAT 06/24/2024 10:11 AM STICK WELDER INR STAT 06/24/2024 10:11 AM STICK WELDER PARTIAL THROMBOPLASTIN TIME STAT 06/24/2024 10:11 AM STICK WELDER CBC WITH PLATELETS & DIFFERENTIAL STAT 06/23/2024 6:22 PM STICK WELDER DIFFERENTIAL STAT 06/23/2024 6:22 PM STICK WELDER CBC WITH PLATELETS AND DIFFERENTIAL STAT 06/23/2024 6:22 PM STICK WELDER HCG QUALITATIVE STAT 06/23/2024 6:22 PM STICK WELDER COMPREHENSIVE METABOLIC PANEL STAT 06/23/2024 6:22 PM STICK WELDER CBC WITH PLATELETS & DIFFERENTIAL STAT 06/22/2024 7:10 PM STICK WELDER CBC WITH PLATELETS AND DIFFERENTIAL STAT 06/22/2024 7:10 PM STICK WELDER RETICULOCYTE COUNT STAT 06/22/2024 7: 10 PM STICK WELDER HCG QUALITATIVE STAT 06/22/2024 7:10 PM STICK WELDER COMPREHENSIVE METABOLIC PANEL STAT 06/22/2024 7:10 PM STICK WELDER CBC WITH PLATELETS & DIFFERENTIAL STAT 06/20/2024 5:48 AM STICK WELDER CBC WITH PLATELETS AND DIFFERENTIAL STAT 06/20/2024 5:48 AM STICK WELDER RETICULOCYTE COUNT Routine 06/20/2024 5: 48 AM STICK WELDER COMPREHENSIVE METABOLIC PANEL Routine 06/20/2024 5:48 AM STICK WELDER LACTATE DEHYDROGENASE Routine 06/20/2024 5:48 AM STICK WELDER CBC WITH PLATELETS & DIFFERENTIAL STAT 06/19/2024 9:30 AM STICK WELDER RBC AND PLATELET MORPHOLOGY STAT 06/19/2024 9:30 AM STICK WELDER CBC WITH PLATELETS AND DIFFERENTIAL STAT 06/19/2024 9:30 AM STICK WELDER RETICULOCYTE COUNT STAT 06/19/2024 9: 30 AM STICK WELDER COMPREHENSIVE METABOLIC PANEL STAT 06/19/2024 9:30 AM STICK WELDER LACTATE DEHYDROGENASE STAT 06/19/2024 9:30 AM STICK WELDER PLATELET COUNT STAT 06/19/2024 12:17 AM STICK WELDER CREATININE STAT 06/19/2024 12:17 AM STICK WELDER CBC WITH PLATELETS & DIFFERENTIAL STAT 06/18/2024 8:24 AM STICK WELDER DIFFERENTIAL STAT 06/18/2024 8:24 AM STICK WELDER CBC WITH PLATELETS AND DIFFERENTIAL STAT 06/18/2024 8:24 AM STICK WELDER RETICULOCYTE COUNT STAT 06/18/2024 8: 24 AM STICK WELDER COMPREHENSIVE METABOLIC PANEL STAT 06/18/2024 8:24 AM STICK WELDER LACTATE DEHYDROGENASE STAT 06/18/2024 8:24 AM STICK WELDER ROUTINE UA WITH MICROSCOPIC REFLEX TO CULTURE STAT 06/17/2024 1:11 PM STICK WELDER TRANSFUSE RED BLOOD CELLS (UNIT) STAT 06/17/2024 10:26 AM STICK WELDER PREPARE RED BLOOD CELLS (UNIT) STAT 06/17/2024 9:12 AM STICK WELDER TRANSFERRIN Add-On 06/17/2024 6:16 AM STICK WELDER IRON AND IRON BINDING CAPACITY Add-On 06/17/2024 6:16 AM STICK WELDER CBC WITH PLATELETS STAT 06/17/2024 6: 16 AM STICK WELDER BASIC METABOLIC PANEL STAT 06/17/2024 6:16 AM STICK WELDER TROPONIN T, HIGH SENSITIVITY STAT 06/16/2024 9:33 PM STICK WELDER XR CHEST 2 VIEWS STAT 06/16/2024 6:09 PM STICK WELDER ABO/RH TYPE AND SCREEN STAT 5 5:37 PM STICK WELDER CBC WITH PLATELETS & DIFFERENTIAL STAT 06/16/2024 5:37 PM STICK WELDER BLOOD CULTURE STAT 06/16/2024 5:37 PM STICK WELDER TYPE AND SCREEN, ADULT STAT 5:37 PM STICK WELDER RBC AND PLATELET MORPHOLOGY STAT 06/16/2024 5:37 PM STICK WELDER CBC WITH PLATELETS AND DIFFERENTIAL STAT 06/16/2024 5:37 PM STICK WELDER PROLACTIN STAT 06/16/2024 5:37 PM STICK WELDER TROPONIN T, HIGH SENSITIVITY STAT 06/16/2024 5:37 PM STICK WELDER COMPREHENSIVE METABOLIC PANEL STAT 06/16/2024 5:37 PM STICK WELDER EKG 12-LEAD, TRACING ONLY STAT 06/16/2024 4:55 PM STICK WELDER CBC WITH PLATELETS & DIFFERENTIAL STAT 06/15/2024 6:09 AM STICK WELDER CBC WITH PLATELETS AND DIFFERENTIAL STAT 06/15/2024 6:09 AM STICK WELDER BASIC METABOLIC PANEL STAT 06/15/2024 6:09 AM STICK WELDER XR CHEST PORT 1 VIEW STAT 06/14/2024 8:46 AM STICK WELDER CBC WITH PLATELETS STAT 06/14/2024 7: 08 AM STICK WELDER BASIC METABOLIC PANEL STAT 06/14/2024 7:08 AM STICK WELDER CBC WITH PLATELETS STAT 06/13/2024 6: 32 PM STICK WELDER CBC WITH PLATELETS & DIFFERENTIAL STAT 06/13/2024 6:00 AM STICK WELDER RBC AND PLATELET MORPHOLOGY STAT 06/13/2024 6:00 AM STICK WELDER CBC WITH PLATELETS AND DIFFERENTIAL STAT 06/13/2024 6:00 AM STICK WELDER BASIC METABOLIC PANEL STAT 06/13/2024 5:59 AM STICK WELDER RESPIRATORY PANEL PCR STAT 06/12/2024 9:34 PM STICK WELDER BLOOD CULTURE STAT 06/12/2024 8:46 PM STICK WELDER BLOOD CULTURE STAT 06/12/2024 8:46 PM STICK WELDER XR CHEST 2 VIEWS STAT 06/12/2024 7:38 PM STICK WELDER ABO/RH TYPE AND SCREEN Add-On 7:17 PM STICK WELDER CBC WITH PLATELETS & DIFFERENTIAL STAT 06/12/2024 7:17 PM STICK WELDER TYPE AND SCREEN, ADULT Routine 7:17 PM STICK WELDER RBC AND PLATELET MORPHOLOGY STAT 06/12/2024 7:17 PM STICK WELDER CBC WITH PLATELETS AND DIFFERENTIAL STAT 06/12/2024 7:17 PM STICK WELDER BLOOD GAS VENOUS STAT 06/12/2024 7:17 PM STICK WELDER TROPONIN T, HIGH SENSITIVITY STAT 06/12/2024 7:17 PM STICK WELDER BASIC METABOLIC PANEL STAT 06/12/2024 7:17 PM STICK WELDER INR STAT 06/12/2024 7:17 PM STICK WELDER EKG 12-LEAD, TRACING ONLY STAT 06/12/2024 6:37 PM STICK WELDER ECG 12-LEAD WITH MUSE SJN,SJO,WWH STAT 06/11/2024 9:04 PM STICK WELDER CBC WITH PLATELETS & DIFFERENTIAL Routine 06/07/2024 1:15 PM STICK WELDER Sickle cell pain crisis (H) RBC AND PLATELET MORPHOLOGY Routine 06/07/2024 1:15 PM STICK WELDER Sickle cell pain crisis (H) INFLUENZA A/B, RSV AND SARS-COV2 PCR Routine 06/07/2024 1:15 PM STICK WELDER Fever CBC WITH PLATELETS AND DIFFERENTIAL Routine 06/07/2024 1:15 PM STICK WELDER Sickle cell pain crisis (H) BASIC METABOLIC PANEL Routine 06/07/2024 1:15 PM STICK WELDER Sickle cell pain crisis (H) ECG 12-LEAD WITH MUSE SJN,SJO,WWH STAT 06/05/2024 11:40 AM STICK WELDER ECG 12-LEAD WITH MUSE SJN,SJO,WWH STAT 06/03/2024 3:24 PM STICK WELDER CBC WITH PLATELETS & DIFFERENTIAL STAT 05/31/2024 10:21 PM STICK WELDER RBC AND PLATELET MORPHOLOGY STAT 05/31/2024 10:21 PM STICK WELDER CBC WITH PLATELETS AND DIFFERENTIAL STAT 05/31/2024 10:21 PM STICK WELDER BASIC METABOLIC PANEL STAT 05/31/2024 10:21 PM STICK WELDER RETICULOCYTE COUNT STAT 05/31/2024 10:21 PM STICK WELDER TRANSFUSE RED BLOOD CELLS (UNIT) Routine 05/30/2024 8:28 AM STICK WELDER 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) History of transfusion PREPARE RED BLOOD CELLS (UNIT) Routine 05/29/2024 5:12 PM STICK WELDER ABO/RH TYPE AND SCREEN Routine 11:23 AM STICK WELDER History of transfusion CBC WITH PLATELETS & DIFFERENTIAL Routine 05/29/2024 11:23 AM STICK WELDER BILL ONLY- CAPILLARY ELECTROPHORESIS Routine 05/29/2024 11:23 AM STICK WELDER BILL ONLY- SICKLE SOLUBILITY BILL Routine 05/29/2024 11:23 AM STICK WELDER URINE CULTURE Routine 05/29/2024 11:23 AM STICK WELDER TYPE AND SCREEN, ADULT Add-On 02/03/202 5 11:23 AM STICK WELDER History of transfusion RBC AND PLATELET MORPHOLOGY Routine 05/29/2024 11:23 AM STICK WELDER CBC WITH PLATELETS AND DIFFERENTIAL Routine 05/29/2024 11:23 AM STICK WELDER GENOTYPE RED BLOOD CELL Routine 05/29/2024 11:23 AM STICK WELDER History of transfusion HEMOGLOBIN EVAL REFLEX TO ELP OR RBC SOLUBILITY Routine 05/29/2024 11:23 AM STICK WELDER FERRITIN Routine 05/29/2024 11:23 AM STICK WELDER ROUTINE UA WITH MICROSCOPIC REFLEX TO CULTURE Routine 05/29/2024 11:23 AM STICK WELDER COMPREHENSIVE METABOLIC PANEL Routine 05/29/2024 11:23 AM STICK WELDER RETICULOCYTE COUNT Routine 05/29/2024 11:23 AM STICK WELDER CBC WITH PLATELETS & DIFFERENTIAL STAT 05/29/2024 12:53 AM STICK WELDER MANUAL DIFFERENTIAL STAT 05/29/2024 12:53 AM STICK WELDER CBC WITH PLATELETS AND DIFFERENTIAL STAT 05/29/2024 12:53 AM STICK WELDER RETICULOCYTE COUNT STAT 05/29/2024 12:53 AM STICK WELDER CBC WITH PLATELETS & DIFFERENTIAL STAT 05/27/2024 3:13 PM STICK WELDER MANUAL DIFFERENTIAL STAT 05/27/2024 3 :13 PM STICK WELDER CBC WITH PLATELETS AND DIFFERENTIAL STAT 05/27/2024 3:13 PM STICK WELDER RETICULOCYTE COUNT STAT 05/27/2024 3: 13 PM STICK WELDER XR CHEST 2 VIEWS STAT 05/27/2024 2:57 PM STICK WELDER COMPREHENSIVE METABOLIC PANEL STAT 05/27/2024 2:30 PM STICK WELDER ECG 12-LEAD WITH MUSE SJN,SJO,WWH STAT 05/27/2024 12:12 PM STICK WELDER IR PROCEDURE NOTE Routine 05/25/2024 2:5 4 PM STICK WELDER IR CHEST PORT PLACEMENT > 5 YRS OF AGE Routine: Next available opening 05/25/2024 2:47 PM STICK WELDER 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) IR CHEST PORT PLACEMENT > 5 YRS OF AGE Priority: 1-2 Weeks 05/25/2024 2:47 PM STICK WELDER 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) HCG QUALITATIVE URINE Routine 05/25/2024 12:[address] CHEST PULMONARY EMBOLISM W CONTRAST STAT 05/23/2024 9:33 PM STICK WELDER N TERMINAL PRO BNP OUTPATIENT STAT 05/23/2024 9:02 PM STICK WELDER TROPONIN T, HIGH SENSITIVITY STAT 05/23/2024 9:02 PM STICK WELDER RETICULOCYTE COUNT STAT 05/23/2024 9: 02 PM STICK WELDER CBC WITH PLATELETS STAT 05/23/2024 9: 02 PM STICK WELDER ECG 12-LEAD WITH MUSE SJN,JEREMIAS,SHEYLAH STAT 05/23/2024 6:54 PM STICK WELDER XR CHEST 2 VIEWS STAT 05/22/2024 5:19 PM STICK WELDER CBC WITH PLATELETS & DIFFERENTIAL STAT 05/22/2024 3:51 PM STICK WELDER RBC AND PLATELET MORPHOLOGY STAT 05/22/2024 3:51 PM STICK WELDER CBC WITH PLATELETS AND DIFFERENTIAL STAT 05/22/2024 3:51 PM STICK WELDER BASIC METABOLIC PANEL STAT 05/22/2024 3:51 PM STICK WELDER ECG 12-LEAD WITH MUSE SJN,SJO,WWH STAT 05/22/2024 3:14 PM STICK WELDER XR CHEST 2 VIEWS STAT 05/20/2024 9:30 AM STICK WELDER CBC WITH PLATELETS & DIFFERENTIAL STAT 05/20/2024 9:09 AM STICK WELDER RBC AND PLATELET MORPHOLOGY STAT 05/20/2024 9:09 AM STICK WELDER BASIC METABOLIC PANEL STAT 05/20/2024 9:09 AM STICK WELDER EXTRA GREEN TOP (LITHIUM HEPARIN) TUBE STAT 05/20/2024 9:09 AM STICK WELDER EXTRA TUBE STAT 05/20/2024 9:09 AM STICK WELDER CBC WITH PLATELETS AND DIFFERENTIAL STAT 05/20/2024 9:09 AM STICK WELDER RETICULOCYTE COUNT STAT 05/20/2024 9: 09 AM STICK WELDER BASIC METABOLIC PANEL STAT 05/20/2024 8:21 AM STICK WELDER ECG 12-LEAD WITH MUSE SJN,SJO,WWH STAT 05/20/2024 7:36 AM STICK WELDER CBC WITH PLATELETS & DIFFERENTIAL STAT 05/19/2024 3:05 AM STICK WELDER MANUAL DIFFERENTIAL STAT 05/19/2024 3 :05 AM STICK WELDER CBC WITH PLATELETS AND DIFFERENTIAL STAT 05/19/2024 3:05 AM STICK WELDER HCG QUALITATIVE STAT 05/19/2024 3:05 AM STICK WELDER CK TOTAL STAT 05/19/2024 3:05 AM STICK WELDER HEPATIC FUNCTION PANEL STAT 3:05 AM STICK WELDER BASIC METABOLIC PANEL STAT 05/19/2024 3:05 AM STICK WELDER RETICULOCYTE COUNT STAT 05/19/2024 3: 05 AM STICK WELDER CBC WITH PLATELETS & DIFFERENTIAL STAT 05/16/2024 10:17 PM STICK WELDER RBC AND PLATELET MORPHOLOGY STAT 05/16/2024 10:17 PM STICK WELDER CBC WITH PLATELETS AND DIFFERENTIAL STAT 05/16/2024 10:17 PM STICK WELDER BASIC METABOLIC PANEL STAT 05/16/2024 10:17 PM STICK WELDER INFLUENZA A/B, RSV AND SARS-COV2 PCR STAT 05/16/2024 10:00 PM STICK WELDER CBC WITH PLATELETS & DIFFERENTIAL STAT 05/14/2024 10:24 PM STICK WELDER MANUAL DIFFERENTIAL STAT 05/14/2024 10:24 PM STICK WELDER CBC WITH PLATELETS AND DIFFERENTIAL STAT 05/14/2024 10:24 PM STICK WELDER HCG QUALITATIVE STAT 05/14/2024 10:24 PM STICK WELDER TROPONIN T, HIGH SENSITIVITY STAT 05/14/2024 10:24 PM STICK WELDER RETICULOCYTE COUNT STAT 05/14/2024 10:24 PM STICK WELDER HEPATIC FUNCTION PANEL STAT 10:24 PM STICK WELDER BASIC METABOLIC PANEL STAT 05/14/2024 10:24 PM STICK WELDER ECG 12-LEAD WITH MUSE SJN,SJO,WWH STAT 05/14/2024 10:12 PM STICK WELDER EXTRA PURPLE TOP TUBE STAT 05/13/2024 6:17 PM STICK WELDER EXTRA TUBE STAT 05/13/2024 6:17 PM STICK WELDER LACTATE DEHYDROGENASE STAT 05/13/2024 6:16 PM STICK WELDER CBC WITH PLATELETS & DIFFERENTIAL STAT 05/13/2024 4:57 PM STICK WELDER MANUAL DIFFERENTIAL STAT 05/13/2024 4 :57 PM STICK WELDER CBC WITH PLATELETS AND DIFFERENTIAL STAT 05/13/2024 4:57 PM STICK WELDER TROPONIN T, HIGH SENSITIVITY STAT 05/13/2024 4:57 PM STICK WELDER RETICULOCYTE COUNT STAT 05/13/2024 4: 57 PM STICK WELDER HEPATIC FUNCTION PANEL STAT 4:57 PM STICK WELDER BASIC METABOLIC PANEL STAT 05/13/2024 4:57 PM STICK WELDER ECG 12-LEAD WITH MUSE SJN,SJO,WWH STAT 05/13/2024 3:38 PM STICK WELDER INFLUENZA A/B, RSV AND SARS-COV2 PCR STAT 05/08/2024 7:33 PM STICK WELDER XR CHEST 2 VIEWS STAT 05/08/2024 5:27 PM STICK WELDER CBC WITH PLATELETS & DIFFERENTIAL STAT 05/08/2024 4:14 PM STICK WELDER RBC AND PLATELET MORPHOLOGY STAT 05/08/2024 4:14 PM STICK WELDER CBC WITH PLATELETS AND DIFFERENTIAL STAT 05/08/2024 4:14 PM STICK WELDER HCG QUALITATIVE STAT 05/08/2024 4:14 PM STICK WELDER INR STAT 05/08/2024 4:14 PM STICK WELDER TROPONIN T, HIGH SENSITIVITY STAT 05/08/2024 4:14 PM STICK WELDER RETICULOCYTE COUNT STAT 05/08/2024 4: 14 PM STICK WELDER COMPREHENSIVE METABOLIC PANEL STAT 05/08/2024 4:14 PM STICK WELDER ECG 12-LEAD WITH MUSE SJN,SJO,WWH STAT 05/08/2024 3:13 PM STICK WELDER ECG 12-LEAD WITH MUSE SJN,SJO,WWH STAT 05/06/2024 7:51 PM STICK WELDER CBC WITH PLATELETS & DIFFERENTIAL STAT 05/06/2024 7:43 PM STICK WELDER RBC AND PLATELET MORPHOLOGY STAT 05/06/2024 7:43 PM STICK WELDER CBC WITH PLATELETS AND DIFFERENTIAL STAT 05/06/2024 7:43 PM STICK WELDER HEPATIC FUNCTION PANEL STAT 7:43 PM STICK WELDER RETICULOCYTE COUNT STAT 05/06/2024 7: 43 PM STICK WELDER TROPONIN T, HIGH SENSITIVITY STAT 05/06/2024 7:43 PM STICK WELDER BASIC METABOLIC PANEL STAT 05/06/2024 7:43 PM STICK WELDER XR CHEST 2 VIEWS STAT 05/05/2024 12:16 PM STICK WELDER CBC WITH PLATELETS & DIFFERENTIAL STAT 05/05/2024 11:50 AM STICK WELDER RBC AND PLATELET MORPHOLOGY STAT 05/05/2024 11:50 AM STICK WELDER CBC WITH PLATELETS AND DIFFERENTIAL STAT 05/05/2024 11:50 AM STICK WELDER TROPONIN T, HIGH SENSITIVITY STAT 05/05/2024 11:50 AM STICK WELDER RETICULOCYTE COUNT STAT 05/05/2024 11:50 AM STICK WELDER BASIC METABOLIC PANEL STAT 05/05/2024 11:50 AM STICK WELDER ECG 12-LEAD WITH MUSE SJN,SJO,WWH STAT 05/05/2024 11:03 AM STICK WELDER from Last 3 Months Results * EKG 12-lead, tracing only (07/27/2024 7:16 PM CDT) Only the most recent of9 resultswithin the time period is included. Systolic Blood Pressure mmHg RADIOLOGY RESULTS Diastolic Blood Pressure mmHg RADIOLOGY RESULTS Ventricular Rate 81 BPM RAD IOLOGY RESULTS Atrial Rate 81 BPM RADIOLOG Y RESULTS CO Interval 144 ms RADIOLOG Y RESULTS QRS Duration 74 ms RADIOLO GY RESULTS QT 358 ms RADIOLOGY RESULTS QTc 415 ms RADIOLOGY RESULTS P [place] 34 degrees RADIOLOGY RESULTS R AXIS 68 degrees RADIOLOGY RESULTS T [place] 45 degrees RADIOLOGY RESULTS Interpretation ECG Sinus rhythm Normal ECG Unconfirmed report - interpretation of this ECG is computer generated - see medical record for final interpretation Confirmed by - EMERGENCY ROOM, PHYSICIAN ([id number]), avid editor NEGRA ASOTRGA ([id number]) on 07/28/2024 6:48:17 AM RADIOLOGY RESULTS 07/27/2024 7:16 PM CDT 07/28/2024 6:48 AM CDT Payal Arriaga DO ECG ORDERABLES Edited Result - Final RADIOLOGY RESULTS * HCG qualitative urine (07/26/2024 9:50 PM CDT) Only the most recent of3 resultswithin the time period is included. hCG Urine Qualitative Negative Negative JARET 07/26/2024 10:21 PM CDT [facility] Comment:This test is for scr eening purposes. Results should be interpreted along with the clinical picture. Confirmation testing is available if warranted by ordering [id number], HCG Quantitative . Urine MID-STREAM URINE SPECIMEN / Unknown Non-blood Collection / Unknown 07/26/2024 9:50 PM CDT 07/26/2024 10:12 PM CDT us Abdelrahman Goddard MD LAB - URINE ORDERABLES Final R esult [facility] [address] [facility], [address] * (ABNORMAL) RBC and Platelet Morphology (07/25/2024 8:24 PM CDT) Only the most recent of20 resultswithin the time period is included. RBC Morphology Confirmed RBC Indices 07/25/2024 9:24 [...] BLOOD ORDERABLES Final Re sult [facility] [address] [facility], [address] * (ABNORMAL) CBC with platelets and differential (07/25/2024 8:24 PM CDT) Only the most recent of41 resultswithin the time period is included. WBC Count 11.5(H) 4.0 - 11.0 10e3/uL [...] BLOOD ORDERABLES Final Re sult [facility] [address] [facility], [address] [id number] * Troponin T, High Sensitivity (07/25/2024 8:24 PM CDT) Only the most recent of15 resultswithin the time period is included. [facility] Troponin T, High Sensitivity <6 <=14 [...] BLOOD ORDERABLES Final Re sult [facility] [address] [facility], [address] * (ABNORMAL) Reticulocyte count (07/25/2024 8:24 PM CDT) Only the most recent of27 resultswithin the time period is included. % Reticulocyte 7.0(H) 0.5 - 2.0 % 07/25/2024 8:47 PM CDT [facility] Absolute Reticulocyte 0.206(H) 0.025 - 0.095 10e6/uL 07/25/2024 8:47 PM CDT [facility] Blood VASCULAR PORT AND CATHETER / Unknown Venipuncture / Unknown 07/25/2024 8:24 PM CDT 07/25/2024 8:37 PM CDT Emanuel Chester MD LAB - BLOOD ORDERABLES Final Re sult [facility] [address] [facility], [address] * (ABNORMAL) Comprehensive metabolic panel (07/25/2024 8:24 PM CDT) Only the most recent of20 resultswithin the time period is included. Pathologist [facility] Sodium 137 135 - 145 mmol/L 07/25/2024 [...] 9:23 PM CDT [facility] Comment:eGFR calculated usin g 1 CKD-EPI equation. Calcium 9.5 8.8 - 10.4 [...] BLOOD ORDERABLES Final Re sult [facility] [address] [facility], [address] [place] [id number] * (ABNORMAL) Basic metabolic panel (07/17/2024 1:38 PM CDT) Only the most recent of22 resultswithin the time period is included. Sodium 137 135 - 145 mmol/L 07/17/2024 2:16 PM CDT [facility] Potassium 4.5 3.4 - 5.3 mmol/L 07/17/2024 2:16 PM CDT [facility] Chloride 108(H) 98 - 107 mmol/L 07/17/2024 2:16 PM CDT [facility] Carbon Dioxide (CO2) 21(L) 22 - 29 mmol/L 07/17/2024 2:16 PM CDT [facility] Anion Gap 8 7 - 15 mmol/L 07/17/2024 2:16 PM CDT [facility] Urea Nitrogen 8.4 6.0 - 20.0 mg/dL 07/17/2024 2:16 PM CDT [facility] Creatinine 0.67 0.51 - 0.95 mg/dL 07/17/2024 2:16 PM CDT [facility] GFR Estimate >90 >60 mL/min/1.7 3m2 07/17/2024 2:16 PM CDT [facility] Comment:eGFR calculated 2020 CKD-EPI equation. Calcium 9.1 8.8 - 10.4 mg/dL 07/17/2024 2:16 PM CDT [facility] Glucose 96 70 - 99 mg/dL 07/17/2024 2:16 PM CDT [facility] Blood VENOUS LINE / Unknown IVAD (Port) / Unknown 07/17/2024 1:38 PM CDT 07/17/2024 1:43 PM CDT us Case Samuel MD LAB - BLOOD ORDERABLES Fi nal Result [facility] Clinics and Surgery [facility] [address] [place] [address] 1st Floor [place] [address] * (ABNORMAL) INR (07/16/2024 9:57 PM CDT) Only the most recent of5 resultswithin the time period is included. INR 1.37(H) 0.85 - 1.15 07/16/2024 10:31 PM CDT [facility] Blood BLOOD SPECIMEN / Unknown Venipuncture / Unknown 07/16/2024 9:57 PM CDT 07/16/2024 10:14 PM CDT us Polly Naylor MD LAB - BLOOD ORDERABLES Final Res ult [facility] [address] [facility], [address] [place] [phone] * D dimer quantitative (07/16/2024 9:57 PM CDT) Only the most recent of2 resultswithin the time period is included. D-Dimer Quantitative 0.41 0.00 - 0.50 ug/mL FEU 07/16/2024 10:33 PM CDT [facility] Blood BLOOD SPECIMEN / Unknown Venipuncture / Unknown 07/16/2024 9:57 PM CDT 07/16/2024 10:14 PM CDT Narrative [facility] - 07/16/2024 10:33 PM CDT This D-dimer assay is intended for use in conjunction with a clinical pretest probability assessment model to exclude pulmonary embolism (PE) and deep venous thrombosis (DVT) in outpatients suspected of PE or DVT. The cut-off value is 0.50 ug/mL FEU. Polly Naylor MD LAB - BLOOD ORDERABLES Final Res ult LABORATORY [facility] [address] [facility], [address] [phone] * XR Chest 2 Views (07/16/2024 9:15 PM CDT) Only the most recent of12 resultswithin the time period is included. Anatomical Region Laterality Modality Chest Digital Radiogra phy 07/16/2024 9:15 PM CDT Impressions 07/16/2024 10:04 PM CDT IMPRESSION: No convincing evidence of active cardiopulmonary disease. Narrative 07/16/2024 10:04 PM CDT EXAM: CHEST 2 VIEWS LOCATION: [facility] DATE: 07/16/2024 INDICATION: Chest pain. COMPARISON: 07/10/2024. FINDINGS: A few curvilinear opacities in the lateral aspect of the mid right lung were present previously and likely represent scarring. The lungs are otherwise clear. Normal size cardiac silhouette. Bilateral subclavian central venous catheters are again noted. Procedure Note Rob Shukla MD - 07/16/2024 EXAM: CHEST 2 VIEWS LOCATION: [facility] DATE: 07/16/2024 INDICATION: Chest pain. COMPARISON: 07/10/2024. FINDINGS: A few curvilinear opacities in the lateral aspect of the midright lung were present previously and likely represent scarring. Thelungs are otherwise clear. Normal size cardiac silhouette. Bilateralsubclavian central venous catheters are again noted. IMPRESSION: No convincing evidence of active cardiopulmonary disease. us Polly Naylor MD IMG DIAGNOSTIC IMAGING ORDERABLE S Final Result * (ABNORMAL) UA with Microscopic reflex to Culture (07/11/2024 6:08 PM CDT) Only the most recent of6 resultswithin the time period is included. Color Urine Light Yellow Colorless, Straw, Light Yellow, Yellow 07/11/2024 6:28 PM CDT [facility] Appearance Urine Clear Clear 07/12/19 6:28 PM CDT [facility] Glucose Urine Negative Negative mg/dL 07/11/2024 6:28 PM CDT [facility] Bilirubin Urine Negative Negative 6:28 PM CDT [facility] Ketones Urine Negative Negative mg/dL 07/11/2024 6:28 PM CDT [facility] Specific [place] Urine 1.011 1.003 - 1.035 07/11/2024 6:28 PM CDT [facility] Blood Urine Trace(A) Negative 07/11/2024 6:28 PM CDT [facility] pH Urine 7.5(H) 5.0 - 7.0 07/11/2024 6:28 PM CDT [facility] Protein Albumin Urine Negative Negative mg/dL 07/11/2024 6:28 PM CDT [facility] Urobilinogen Urine Normal Normal, 2.0 mg/dL 07/11/2024 6:28 PM CDT [facility] Nitrite Urine Negative Negative 07/11/2024 6:28 PM CDT [facility] Leukocyte Esterase Urine Negative Negative 07/11/2024 6:28 PM CDT [facility] Bacteria Urine Few(A) None Seen /HPF 07/11/2024 6:28 PM CDT [facility] Mucus Urine Present(A) None Seen /LPF 07/11/2024 6:28 PM CDT [facility] RBC Urine 1 <=2 /HPF 07/11/2024 6:28 PM CDT [facility] WBC Urine 1 <=5 /HPF 07/11/2024 6:28 PM CDT [facility] Squamous Epithelials Urine 3(H) <=1 /HPF 07/11/2024 6:28 PM CDT [facility] Urine URINE SPECIMEN OBTAINED BY CLEAN CATCH PROCEDURE / Unknown Non-blood Collection / Unknown 07/11/2024 6:08 PM CDT 07/11/2024 6:19 PM CDT Narrative [facility] - 07/11/2024 6:28 PM CDT Urine Culture not indicated us Ana Troy MD LAB - URINE ORDERABLES Fi nal Result Performing Organization Address [facility] Co de Phone Number U LABORATORY [facility] Core Lab [address] [facility], [address] [place] [phone] * Adult Type and Screen (07/11/2024 4:15 PM CDT) Only the most recent of8 resultswithin the time period is included. ABO/RH(D) A POS 07/11/2024 3:14 PM CDT [facility] Antibody Screen Negative Negative 07/11/2024 3:14 PM CDT [facility] Comment:Current antibody scr een is negative. Patient has a history of antibody(ies). A delay in compatible red blood cells may occur. SPECIMEN EXPIRATION DATE [id number] 07/11/2024 3:14 PM CDT [facility] Blood BLOOD SPECIMEN / Unknown Venipuncture / Unknown 07/11/2024 4:15 PM CDT 07/11/2024 4:29 PM CDT Ana Troy MD LAB - BLOOD BANK TEST ORD ER Final Result Performing Organization Address [facility]/ZIP Co de Phone Number [facility] [address] [place] [phone] * HCG qualitative (blood) (07/10/2024 8:16 PM CDT) Only the most recent of8 resultswithin the time period is included. Pathologist [facility] hCG Serum Qualitative Negative Negative JARET 07/10/2024 8:55 PM CDT [facility] Comment:This test is for scr eening purposes. Results should be interpreted along with the clinical picture. Confirmation testing is available if warranted by ordering [id number], HCG Quantitative . Blood BLOOD SPECIMEN / Unknown Venipuncture / Unknown 07/10/2024 8:16 PM CDT 07/10/2024 8:20 PM CDT us Ifrah Wills PA-C LAB - BLOOD ORDERABLES Fin al Result U LABORATORY [facility] Lab 500 [facility] [address], [address] [place] [phone] * (ABNORMAL) Manual Differential (07/09/2024 2:54 AM CDT) Only the most recent of7 resultswithin the time period is included. [facility] % Neutrophils 21 % JARET 07/09/2024 5:24 [...] BLOOD ORDERABLES Final Res ult [facility] [address] [facility], [address] [phone] * Red Blood Cell Exchange (07/06/2024 3:12 PM CDT) Narrative Emelina Rdoriguez MD - 07/06/2024 3:12 PM CDT Emelina Rodriguez MD 07/06/2024 3:12 PM Transfusion Medicine Consultation Lew Hernández [id number] Date of : 1995 Age: [age] year [...] negative, fresh, and matched for Rh and Jennifer. We discussed the use of the blood products as the replacement fluid and I reviewed with her the potential risks and benefits of blood transfusion. Consent was obtained over the phone with an appropriate witness. - ACD-A will be used for anticoagulation of the apheresis equipment. History of Present Illness: Lew Hernández is [...] inadequate. naloxone (NARCAN) 4 MG/0.1ML nasal spray Frederic 1 spray (4 mg) into one nostril [...] performed with 5units of RBCs (Rh and Eccles matched, fresh, Hgb S negative). The patient's [...] Emelina Rodriguez MD, PhD Transfusion Medicine Attending Medical Administrator, Blood Bank Laboratory Pager [phone] us Lynn Aguilar MD IP APHERESIS Final Result * (ABNORMAL) Hemoglobin S with Reflex to Acid Gel Electrophoresis (07/06/2024 11:12 AM CDT) Only the most recent of2 resultswithin the time period is included. Hemoglobin S Qualitative Positive( A) Negative 07/07/2024 [...] Res ult SPECIALTY CORE/PROT/ENDO Specialty Core/Prot/Endo [address] [facility] [address] Building, Room [address] * (ABNORMAL) Hemoglobin and hematocrit (07/06/2024 11:12 AM CDT) Only the most recent of2 resultswithin the time period is included. Hemoglobin 8.8(L) 11.7 - 15.7 g/dL 07/06/2024 11:20 AM CDT [facility] Hematocrit 25.5(L) 35.0 - 47.0 % 07/06/2024 11:20 AM CDT [facility] Blood BLOOD SPECIMEN / Unknown IVAD (Port) / Unknown 07/06/2024 11:12 AM CDT 07/06/2024 11:17 AM CDT us Lynn Aguilar MD LAB - BLOOD ORDERABLES Final Res ult [facility] Clinics and Surgery [facility] [address] [facility] 1st [place] [address] * Prepare red blood cells (unit) (07/05/2024 11:35 PM CDT) Only the most recent of7 resultswithin the time period is included. Blood Component Type Red Blood Cells BLOOD BANK Product Code [id number] [facility] Unit Status Transfused [facility] Unit Number [id number] UU B LOOD BANK CROSSMATCH COMPATIBLE [facility] B[facility] B[facility] CODING SYSTEM [id number] UU BLO OD BANK ISSUE DATE AND TIME [id number] [facility] BLO[facility] BANK UNIT ABO/RH A+ [facility] BLOOD BANK UNIT TYPE ISBT 6200 [facility] BL OOD BANK 07/05/2024 11:3 5 PM CDT us Doctor Unknown MD BLOOD BANK PRODUCT ORDERABLES Final Result [facility] B[facility] [address] [place] [phone], [facility] * (ABNORMAL) Manual Differential (07/02/2024 7:03 PM [...] - BLOOD ORDERABLES Fi nal Result LABORATORY [facility] Core Lab [address] [facility], [address] * Extra Purple Top Tube (06/29/2024 6:05 AM STICK WELDER) Only the most recent of2 resultswithin the time period is included. Hold Specimen [facility] 06/29/2024 7:31 AM STICK WELDER U LABORATORY Blood ARTERIAL LINE / Unknown IVAD (Port) / Unknown 06/29/2024 6:05 AM STICK WELDER 06/29/2024 6:19 AM STICK WELDER Alex Gillespie MD LAB - BLOOD ORDERABLES Final Re sult LABORATORY [facility] Core Lab [address] [facility], [address] [phone] * (ABNORMAL) Lactate Dehydrogenase (06/28/2024 6:06 AM STICK WELDER) Only the most recent of5 resultswithin the time period is included. Pathologist [facility] Lactate Dehydrogenase 451(H) 0 - 250 U/L 06/28/2024 6:51 AM STICK WELDER U LABORATORY Blood VENOUS LINE / Unknown Venipuncture / Unknown 06/28/2024 6:06 AM STICK WELDER 06/28/2024 6:22 AM STICK WELDER Polly Allen MD LAB - BLOOD ORDER SYD Final Result LABORATORY [facility] Core Lab [address] [facility], [address] * (ABNORMAL) Bilirubin direct (06/28/2024 6:06 AM STICK WELDER) [facility] Bilirubin Direct 0.53(H) 0.00 - 0.30 mg/dL 06/28/2024 9:50 AM STICK WELDER U LABORATORY Blood VENOUS LINE / Unknown Venipuncture / Unknown 06/28/2024 6:06 AM STICK WELDER 06/28/2024 6:22 AM STICK WELDER Polly Allen MD LAB - BLOOD ORDER SYD Final Result Performing Organization Address City/[facility] Co de Phone Number LABORATORY [facility] Core Lab [address] [place] [address], Room [address] [place] [address] * Heparin Unfractionated Anti Xa Level (06/28/2024 1:57 AM STICK WELDER) Only the most recent of5 resultswithin the time period is included. [facility] Anti Xa Unfractionated Heparin 0.45 For Reference Range, See Comment IU/mL 06/28/2024 2:32 AM STICK WELDER [facility] Blood VENOUS LINE / Unknown Venipuncture / Unknown 06/28/2024 1:57 AM STICK WELDER 06/28/2024 2:17 AM STICK WELDER Narrative [facility] - 06/28/2024 2:32 AM STICK WELDER Therapeutic Range: UFH: 0.25-0.50 IU/mL for low intensity dosing, 0.30-0.70 IU/mL for high intensity dosing DVT and PE. This test is not validated for other direct factor X inhibitors (e.g. rivaroxaban, apixaban, edoxaban, betrixaban, fondaparinux) and should not be used for monitoring of other medications. Alex Gillespie MD LAB - BLOOD ORDERABLES Final Re sult Performing Organization Address City/[facility] Co de Phone Number LABORATORY [facility] Core Lab [address] [facility], [address] * Extra Green Top (Hornitos Heparin) Tube (06/27/2024 5:55 PM STICK WELDER) Only the most recent of2 resultswithin the time period is included. Pathologist [facility] Hold Specimen JI 06/27/2024 8:31 PM STICK WELDER LABORATORY Blood STRUCTURE OF RIGHT WRIST REGION / Unknown Venipuncture / Unknown 06/27/2024 5:55 PM STICK WELDER 06/27/2024 7:22 PM STICK WELDER Alex Gillespie MD LAB - BLOOD ORDERABLES Final Re sult Performing Organization Address [facility] de Phone Number LABORATORY [facility] Lab [address] [place] [address], [address] * ECHO COMPLETE (06/27/2024 2:33 PM STICK WELDER) [facility] LVEF 55-60% CARDIOLOGY RESULTS Anatomical Region Laterality Modality Echocardiography 06/27/2024 1:58 PM STICK WELDER Narrative 06/27/2024 2:51 PM STICK WELDER [id number]^BRITTANEY^KAILEY [facility] Echocardiography Laboratory [address] [place] [id number] Name: LEW HERNÁNDEZ : 1995 Study Date: 06/27/2024 01:58 PM Age: 29 yrs Gender: Female Patient Location: [facility] Reason For Study: Pulmonary Emboli Ordering Physician: KAILEY QUISPE Performed By: Maggy Franks RDCS BSA: [...] Doppler Measurements & Calculations MV E max ale: 90.1 cm/sec MV A max ale: 50.3 cm/sec MV E/A: 1.8 MV dec slope: 568.9 cm/sec2 MV dec time: 0.16 sec PA acc time: 0.14 sec E/E' av.1 Lateral E/e': 5.6 Medial E/e': 6.7 RV S Ale: 15.7 cm/sec Measurements from QLAB EDV (RV HM): 121.9 ml EF (RV HM): 59.4 % ESV (RV HM): 49.5 ml RV 4C LS (): -22.1 % RV Free Wall LS (): -23.7 % Report approved by: MASON PEREA MD on 06/27/2024 02:51 PM Procedure Note Mason Perea MD - 06/27/2024 [id number]^BRITTANEY^KAILEY [facility] Echocardiography Laboratory [address] [place] [address] Name: LEW HERNÁNDEZ : 1995 Study Date: 06/27/2024 01:58 PM Age: 29 yrs Gender: Female Patient Location: [facility] Reason For Study: Pulmonary Emboli Ordering Physician: KAILEY QUISPE Performed By: Maggy Franks RDCS BSA: [...] Doppler Measurements & Calculations MV E max ale: 90.1 cm/sec MV A max ale: 50.3 cm/sec MV E/A: 1.8 MV dec slope: 568.9 cm/sec2 MV dec time: 0.16 sec PA acc time: 0.14 sec E/E' av.1 Lateral E/e': 5.6 Medial E/e': 6.7 RV S Ale: 15.7 cm/sec Measurements from QLAB EDV (RV HM): 121.9 ml EF (RV HM): 59.4 % ESV (RV HM): 49.5 ml RV 4C LS (): -22.1 % RV Free Wall LS (): -23.7 % Report approved by: MASON PEREA MD on 06/27/2024 02:51 PM us Kailey Quispe MD CV ECHO ORDERABLES Edited Result - Final * US Lower Extremity Venous Duplex Bilateral (06/27/2024 11:21 AM STICK WELDER) Anatomical Region Laterality Modality Vascular, Thigh, Leg Ultrasound Impressions 06/27/2024 11:45 AM STICK WELDER IMPRESSION: No evidence of deep venous thrombosis in either lower extremity. I have personally reviewed the examination and initial interpretation and I agree with the findings. MAICO QUAN MD Narrative 06/27/2024 11:45 AM STICK WELDER EXAMINATION: DOPPLER VENOUS ULTRASOUND OF BILATERAL LOWER [...] normal compressibility and blood flow. Procedure Note Maico Quan MD - 06/27/2024 EXAMINATION: DOPPLER VENOUS [...] interpretation and I agree with the findings. MAICO QUAN MD Polly Marly Allen MD [facility] ORDERABLES Final Result * Influenza A/B, RSV and SARS-CoV2 PCR (COVID-19) Nose (06/27/2024 8:43 AM STICK WELDER) Only the most recent of4 resultswithin the time period is included. Pathologist [facility] Influenza A PCR Negative Negative 06/27/2024 10:03 AM STICK WELDER [facility] Influenza B PCR Negative Negative 06/27/2024 10:03 AM STICK WELDER [facility] RSV PCR Negative Negative 06/27/2024 10:03 AM STICK WELDER [facility] SARS CoV2 PCR Negative Negative 06/27/2024 10:03 AM STICK WELDER [facility] Comment:NEGATIVE: SARS-CoV-2 (COVID-19) RNA not detected, presumed negative. Swab NASAL STRUCTURE / Unknown Non-blood Collection / Unknown 06/27/2024 8:43 AM STICK WELDER 06/27/2024 8:59 AM STICK WELDER Narrative [facility] - 06/27/2024 10:03 AM STICK WELDER Testing was performed using the Xpert Xpress CoV2/Flu/RSV Assay on the [employer] GeneXpert Instrument. This test should be ordered [...] management. This test was validated by the [facility]. These laboratories are certified under the Clinical Laboratory Improvement Amendments of 1988 (CLIA-88) as qualified to perfom high complexity laboratory testing. Polly Allen MD LAB - MICRO GENER AL ORDERABLES Final Result [facility] Inf. Diseases Diag. Lab [address] [facility], [address] [place] [phone] * (ABNORMAL) Hepatic panel (06/27/2024 5:57 AM STICK WELDER) Only the most recent of5 resultswithin the time period is included. Protein Total 7.4 6.4 - 8.3 g/dL 06/27/2024 9:06 AM STICK WELDER [facility] Albumin 4.0 3.5 - 5.2 g/dL 06/27/2024 9:06 AM STICK WELDER [facility] Bilirubin Total 1.2 <=1.2 mg/dL 06/27/2024 9:06 AM STICK WELDER [facility] Alkaline Phosphatase 113 40 - 150 U/L 06/27/2024 9:06 AM STICK WELDER [facility] AST 41 0 - 45 U/L 06/27/2024 9:06 AM STICK WELDER [facility] ALT 35 0 - 50 U/L 06/27/2024 9:06 AM STICK WELDER [facility] Bilirubin Direct 0.45(H) 0.00 - 0.30 mg/dL 06/27/2024 9:06 AM STICK WELDER [facility] Blood BLOOD SPECIMEN / Unknown Venipuncture / Unknown 06/27/2024 5:57 AM STICK WELDER 06/27/2024 6:06 AM STICK WELDER us Polly Allen MD LAB - BLOOD ORDER SYD Final Result [facility] Lab [address] [facility], [address] [phone] * (ABNORMAL) CBC with platelets (06/27/2024 5:57 AM STICK WELDER) Only the most recent of5 resultswithin the time period is included. Pathologist [facility] WBC Count 17.8(H) 4.0 - 11.0 10e3/uL 06/27/2024 6:16 AM STICK WELDER [facility] RBC Count 2.60(L) 3.80 - 5.20 10e6/uL 06/27/2024 6:16 AM STICK WELDER [facility] Hemoglobin 8.5(L) 11.7 - 15.7 g/dL 06/27/2024 6:16 AM STICK WELDER [facility] Hematocrit 25.9(L) 35.0 - 47.0 % 06/27/2024 6:16 AM STICK WELDER [facility] MCV 100 78 - 100 fL 06/27/2024 6:16 AM STICK WELDER [facility] MCH 32.7 26.5 - 33.0 pg 06/27/2024 6:16 AM STICK WELDER [facility] MCHC 32.8 31.5 - 36.5 g/dL 06/27/2024 6:16 AM STICK WELDER [facility] RDW 19.2(H) 10.0 - 15.0 % 06/27/2024 6:16 AM STICK WELDER [facility] Platelet Count 469(H) 150 - 450 10e3/uL 06/27/2024 6:16 AM STICK WELDER [facility] Blood BLOOD SPECIMEN / Unknown Venipuncture / Unknown 06/27/2024 5:57 AM STICK WELDER 06/27/2024 6:07 AM STICK WELDER Kailey Quispe MD LAB - BLOOD ORDERABLES Final Res ult [facility] LABORATORY [facility] [address] [facility], [address] [place] [phone] * (ABNORMAL) Erythrocyte sedimentation rate auto (06/26/2024 6:46 PM STICK WELDER) Erythrocyte Sedimentation Rate 24(H) 0 - 20 mm/hr 06/26/2024 7:28 PM STICK WELDER [facility] Blood BLOOD SPECIMEN / Unknown Venipuncture / Unknown 06/26/2024 6:46 PM STICK WELDER 06/26/2024 7:14 PM STICK WELDER Kailey Quispe MD LAB - BLOOD ORDERABLES Final Res ult [facility]ATORY [facility] [address] [facility], [address] [place] [phone] * Blood Culture Peripheral Blood (06/26/2024 6:46 PM STICK WELDER) Only the most recent of5 resultswithin the time period is included. Culture No Growth 07/01/2024 9:47 PM STICK WELDER [facility] Blood BLOOD SPECIMEN / Unknown Venipuncture / Unknown 06/26/2024 6:46 PM STICK WELDER 06/26/2024 7:14 PM STICK WELDER Kailey Quispe MD LAB - MICRO GENERAL ORDERABLES F inal Result Performing Organization Address City/[facility]/ZIP Co de Phone Number [facility]ORAT[facility] Inf. Diseases Diag. Lab [address] [facility], [address] [place] [phone] * CT Chest Pulmonary Embolism w Contrast (06/26/2024 4:15 PM STICK WELDER) Only the most recent of2 resultswithin the time period is included. Anatomical Region Laterality Modality Chest, SUBRAD CT BODY, UMP CT CHEST Computed Tomography Impressions 06/26/2024 4:29 PM STICK WELDER IMPRESSION: Bilateral pulmonary emboli and bilateral pulmonary nodules, cannot exclude septic emboli the lungs given 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 No definitive evidence of right heart strain. Some bony changes again noted of sickle cell in the thoracic spine and humeral heads typical of microvascular insults related to sickle cell. EVY FUENTES MD Narrative 06/26/2024 4:[address] chest pulmonary angiogram with contrast INDICATION: [...] IMG CT ORDERABLES Final Resu lt * Procalcitonin (06/26/2024 2:42 PM STICK WELDER) Procalcitonin 0.03 <0.50 ng/mL 06/26/2024 5:02 PM STICK WELDER [facility] Comment: Interpretation and Recommendations <0.5 [...] See Procalcitonin Guidance document for more details. [email or web address] Factors that may affect PCT levels (not [...] Unknown Venipuncture / Unknown 06/26/2024 2:42 PM STICK WELDER 06/26/2024 2:52 PM STICK WELDER Result [facility] Jayden Adhikari MD LAB - BLOOD ORDERABLES Final Result LABORATORY [facility] [address] [facility], [address] [phone] * CRP inflammation (06/26/2024 2:42 PM STICK WELDER) CRP Inflammation 4.22 <5.00 mg/L 06/27/19 5:02 PM STICK WELDER LABORATORY Blood BLOOD SPECIMEN / Unknown Venipuncture / Unknown 06/26/2024 2:42 PM STICK WELDER 06/26/2024 2:52 PM STICK WELDER Result [facility] Jayden Adhikari MD LAB - BLOOD ORDERABLES Final Result Performing Organization Address City/[facility]/ZIP Co de Phone Number LABORATORY [facility] Ebony Core Lab 500 [facility], [address] [phone] * Partial thromboplastin time (06/24/2024 10:11 AM STICK WELDER) aPTT 32 22 - 38 Seconds 06/24/2024 10:55 AM STICK WELDER LABORATORY Blood BLOOD SPECIMEN / Unknown Venipuncture / Unknown 06/24/2024 10:11 AM STICK WELDER 06/24/2024 10:21 AM STICK WELDER Richar Mahajan MD LAB - BLOOD ORDERABLES Liss l Result LABORATORY [facility] Lab 500 [facility], Room [address] [phone] * Magnesium (06/24/2024 10:11 AM STICK WELDER) Magnesium 2.1 1.7 - 2.3 mg/dL 06/24/2024 10:51 AM STICK WELDER [facility] Blood BLOOD SPECIMEN / Unknown Venipuncture / Unknown 06/24/2024 10:11 AM STICK WELDER 06/24/2024 10:21 AM STICK WELDER Richar Mahajan MD LAB - BLOOD ORDERABLES Liss l Result [facility] 500 [facility], Room [address] * (ABNORMAL) Platelet count (06/19/2024 12:17 AM STICK WELDER) Platelet Count 467(H) 150 - 450 10e3/uL 06/19/2024 12:44 AM STICK WELDER [facility] Blood BLOOD SPECIMEN / Unknown Venipuncture / Unknown 06/19/2024 12:17 AM STICK WELDER 06/19/2024 12:26 AM STICK WELDER Laquita Kelley MD LAB - BLOOD ORDERABLES Final Re sult [facility] 500 [facility], Room [address] * Creatinine (06/19/2024 12:17 AM STICK WELDER) Creatinine 0.72 0.51 - 0.95 mg/dL 06/19/2024 12:51 AM STICK WELDER [facility] GFR Estimate >90 >60 mL/min/1.7 3m2 06/19/2024 12:51 AM STICK WELDER [facility] Comment:eGFR calculated 2020 CKD-EPI equation. Blood BLOOD SPECIMEN / Unknown Venipuncture / Unknown 06/19/2024 12:17 AM STICK WELDER 06/19/2024 12:26 AM STICK WELDER us Laquita Kelley MD LAB - BLOOD ORDERABLES Final Re sult [facility] Core Lab 500 [facility], [address] [phone] * Transfuse red blood cells (unit), Sickle Cell (Hgb S) Negative (06/17/2024 2:33 PM STICK WELDER) Only the most recent of2 resultswithin the time period is included. us Drake Nina MD BLOOD TRANSFUSION ORDERABLES Final Result * (ABNORMAL) Transferrin (06/17/2024 6:16 AM STICK WELDER) Transferrin 100.0(L) 200.0 - 360.0 mg/dL 06/17/2024 9:36 AM STICK WELDER [facility] Blood VENOUS LINE / Unknown IVAD (Port) / Unknown 06/17/2024 6:16 AM STICK WELDER 06/17/2024 6:27 AM STICK WELDER us Drake Nina MD LAB - BLOOD ORDERABLES Final Result Performing Organization Address City/[facility]/ZIP Co de Phone Number [facility] LAB[facility]AT[facility] Core Lab [address] [facility], [address] [phone] [place] [address] * Iron and iron binding capacity (06/17/2024 6:16 AM STICK WELDER) Iron 123 37 - 145 ug/dL 06/17/2024 10:02 AM STICK WELDER [facility] Iron Binding Capacity 06/17/2024 10:02 AM STICK WELDER [facility] Comment:Unable to calculate: UIBC or Iron value is outside detectable level. Iron Sat Index 06/17/2024 10:02 AM STICK WELDER [facility] Comment:Unable to calculate: UIBC or Iron value is outside detectable level. Blood VENOUS LINE / Unknown IVAD (Port) / Unknown 06/17/2024 6:16 AM STICK WELDER 06/17/2024 6:27 AM STICK WELDER us Drake Nina MD LAB - BLOOD ORDERABLES Final Result [facility] Core Lab 500 [facility], Room [address] [place] [phone] * (ABNORMAL) Prolactin (06/16/2024 5:37 PM STICK WELDER) Prolactin 55(H) 5 - 23 ng/mL 06/16/2024 6:24 PM STICK WELDER [facility] Blood BLOOD SPECIMEN / Unknown Venipuncture / Unknown 06/16/2024 5:37 PM STICK WELDER 06/16/2024 5:46 PM STICK WELDER us Varghese Cipriano Schofield MD LAB - BLOOD ORDERABLE S Final Result LABORATORY [facility] Core Lab 500 [facility], [address] [phone] * XR Chest Port 1 View (06/14/2024 8:46 AM STICK WELDER) Anatomical Region Laterality Modality Chest Digital Radiogra phy Impressions 06/14/2024 8:59 AM STICK WELDER Impression: Further increase in ill-defined opacity projecting over the right lower lung concerning for pneumonia. MARIO ALBERTO BLACKWOOD MD Narrative 06/14/2024 8:59 AM STICK WELDER Exam: XR CHEST PORT 1 VIEW, 06/14/2024 [...] * Respiratory Panel PCR (06/12/2024 9:34 PM STICK WELDER) Pathologist [facility] Adenovirus Not Detected Not Detected 06/12/2024 11:53 PM STICK WELDER [facility] Coronavirus Not Detected Not Detected 06/12/2024 11:53 PM STICK WELDER [facility] Comment:This test detects Co ronavirus 229E, HKU1, NL63 and OC43 but does not distinguish between them. It does not detect MERS ( Respiratory Syndrome), SARS (Severe Acute Respiratory Syndrome) or 2019-nCoV (Novel 2019) Coronavirus. Human Metapneumovirus Not Detected Not Detected 06/12/2024 11:53 PM STICK WELDER [facility] Human Rhin/Enterovirus Not Detected Not Detected 06/12/2024 11:53 PM STICK WELDER [facility] Influenza A Not Detected Not Detected 06/12/2024 11:53 PM STICK WELDER [facility] Influenza A, H1 Not Detected Not Detected 06/12/2024 11:53 PM STICK WELDER [facility] Influenza A 2009 H1N1 Not Detected Not Detected 06/12/2024 11:53 PM STICK WELDER [facility] Influenza A, H3 Not Detected Not Detected 06/12/2024 11:53 PM STICK WELDER [facility] Influenza B Not Detected Not Detected 06/12/2024 11:53 PM STICK WELDER [facility] Parainfluenza Virus 1 Not Detected Not Detected 06/12/2024 11:53 PM STICK WELDER [facility] Parainfluenza Virus 2 Not Detected Not Detected 06/12/2024 11:53 PM STICK WELDER [facility] Parainfluenza Virus 3 Not Detected Not Detected 06/12/2024 11:53 PM STICK WELDER [facility] Parainfluenza Virus 4 Not Detected Not Detected 06/12/2024 11:53 PM STICK WELDER [facility] Respiratory Syncytial Virus A Not Detected Not Detected 06/12/2024 11:53 PM STICK WELDER [facility] Respiratory Syncytial Virus B Not Detected Not Detected 06/12/2024 11:53 PM STICK WELDER [facility] Chlamydia Pneumoniae Not Detected Not Detected 06/12/2024 11:53 PM STICK WELDER [facility] Mycoplasma Pneumoniae Not Detected Not Detected 06/12/2024 11:53 PM STICK WELDER [facility] Swab NASOPHARYNGEAL STRUCTURE / Unknown Non-blood Collection / Unknown 06/12/2024 9:34 PM STICK WELDER 06/12/2024 9:47 PM STICK WELDER Narrative [facility] - 06/12/2024 11:53 PM STICK WELDER The ePlex Respiratory Panel is a qualitative nucleic acid, multiplex, in vitro diagnostic test for the simultaneous detection and identification of multiple respiratory viral and bacterial nucleic acids in nasopharyngeal swabs collected in viral transport media from individual exhibiting signs and symptoms of respiratory infection. The assay has received FDA approval for the testing of nasopharyngeal ([employer]) swabs only. This test is used for clinical purposes and should not be regarded as investigational or for research. This laboratory is certified under the Clinical Laboratory Improvement Amendments of 1988 (CLIA-88) as qualified to perform high complexity clinical laboratory testing. us Abdelrahman Goddard MD LAB - MICRO GENERAL ORDERABLES Final Result [facility] Inf. Diseases Diag. Lab 500 [facility], [address] [place] [phone] * (ABNORMAL) Blood gas venous (06/12/2024 7:17 PM STICK WELDER) pH Venous 7.38 7.32 - 7.43 06/12/2024 7:40 PM STICK WELDER [facility] pCO2 Venous 42 40 - 50 mm Hg 06/12/2024 7:40 PM STICK WELDER [facility] pO2 Venous 35 25 - 47 mm Hg 06/12/2024 7:40 PM STICK WELDER [facility] Bicarbonate Venous 24 21 - 28 mmol/L 06/12/2024 7:40 PM STICK WELDER [facility] Base Excess/Deficit Venous -0.9 -3.0 - 3.0 mmol/L 06/12/2024 7:40 PM STICK WELDER [facility] FIO2 21 JARET 06/12/2024 7:40 PM STICK WELDER [facility] Oxyhemoglobin Venous 61(L) 70 - 75 % 06/12/2024 7:40 PM STICK WELDER [facility] O2 Sat, Venous 63.9(L) 70.0 - 75.0 % 06/12/2024 7:40 PM STICK WELDER [facility] Blood, venous VENOUS LINE / Unknown Venipuncture / Unknown 06/12/2024 7:17 PM STICK WELDER 06/12/2024 7:30 PM STICK WELDER Narrative [facility] - 06/12/2024 7:40 PM STICK WELDER In healthy individuals, oxyhemoglobin (O2Hb) and oxygen saturation (SO2) are approximately equal. In the presence of dyshemoglobins, oxyhemoglobin can be considerably lower than oxygen saturation. us Abdelrahman Goddard MD LAB - BLOOD ORDERABLES Final R esult [facility] Core Lab [address] [facility], [address] [phone] * ECG 12-LEAD WITH MUSE (LHE) (06/11/2024 9:04 PM STICK WELDER) Only the most recent of12 resultswithin the time period is included. Systolic Blood Pressure mmHg RADIOLOGY RESULTS Diastolic Blood Pressure mmHg RADIOLOGY RESULTS Ventricular Rate 102 BPM RAD IOLOGY RESULTS Atrial Rate 102 BPM RADIOLOG Y RESULTS CO Interval 158 ms RADIOLOG Y RESULTS QRS Duration 78 ms RADIOLO GY RESULTS QT 348 ms RADIOLOGY RESULTS QTc 453 ms RADIOLOGY RESULTS P Upham 39 degrees RADIOLOGY RESULTS R AXIS 66 degrees RADIOLOGY RESULTS T Upham 33 degrees RADIOLOGY RESULTS Interpretation ECG Sinus tachycardia Nonspecific T wave abnormality Abnormal ECG When compared with ECG of 05-Jun-2024 11:40, No significant change was found Confirmed by SEE ED PROVIDER NOTE FOR, ECG INTERPRETATION (4000), avid editor SELMA GARRISON ([id number]) on 06/11/2024 9:05:27 PM RADIOLOGY RESULTS 06/11/2024 9:04 PM STICK WELDER 06/11/2024 9:05 PM STICK WELDER Deshawn Arredondo MD ECG ORDERABLES Edited Resu lt - Final Performing Organization Address City/[facility]/ZIP Co de Phone Number RADIOLOGY RESULTS * HGB Eval Reflex to ELP or RBC Solubility (05/29/2024 11:23 AM STICK WELDER) Alpha Globin (HBA1 and HBA2) DD Bill Billed 05/31/2024 2:46 PM STICK WELDER [facility] Comment: Performed By: [facility] [address] [place] [address] Wink Cutter Operator: Devon Healy MD, PhD CLIA Number: [id number] Blood VENOUS LINE / Unknown IVAD (Port) / Unknown 05/29/2024 11:23 AM STICK WELDER 05/29/2024 11:30 AM STICK WELDER us Case Samuel MD LAB CHARGE PERFORMABLES F inal Result Performing Organization Address [facility] de Phone Number [facility] [employer] [address] [place], [place] [phone], [facility] [phone] * Bill Only- Sickle Solubility Bill (05/29/2024 11:23 AM STICK WELDER) Pathologist [facility] Sickle Solubility Reflex Bill Billed 05/31/2024 2:46 PM STICK WELDER [facility] Comment: Performed By: [facility] [address] [place] [address] Wink Cutter Operator: Devon Healy MD, PhD CLIA Number: [id number] Blood VENOUS LINE / Unknown IVAD (Port) / Unknown 05/29/2024 11:23 AM STICK WELDER 05/29/2024 11:30 AM STICK WELDER us Case Samuel MD LAB CHARGE PERFORMABLES F inal Result Performing Organization Address [facility] Co de Phone Number [facility] [employer] [address] [place] [phone], [facility] [phone] * Genotype Red Blood Cell (05/29/2024 11:23 AM STICK WELDER) Pathologist [facility] See Scanned Result GENOTYPE RED BLOOD CELL-Scanned 05/31/2024 10:16 AM STICK WELDER [facility] Blood VENOUS LINE / Unknown IVAD (Port) / Unknown 05/29/2024 11:23 AM STICK WELDER 05/29/2024 11:29 AM STICK WELDER us Case Samuel MD LAB - BLOOD ORDERABLES Fi nal Result [facility] Blood [facility] [address] [phone] * (ABNORMAL) HGB Eval Reflex to ELP or RBC Solubility (05/29/2024 11:23 AM STICK WELDER) Hemoglobin A 15.0(L) 95.0 - 97.9 % 05/31/2024 2:46 PM STICK WELDER [facility] Hemoglobin A2 3.0 2.0 - 3.5 % 05/31/2024 2:46 PM STICK WELDER [facility] Hemoglobin F 10.8(H) 0.0 - 2.1 % 05/31/2024 2:46 PM STICK WELDER [facility] Hemoglobin S 71.2(H) 0.0 - 0.0 % 05/31/2024 2:46 PM STICK WELDER [facility] Hemoglobin C 0.0 0.0 - 0.0 % 05/31/2024 2:46 PM STICK WELDER [facility] Hemoglobin E 0.0 0.0 - 0.0 % 05/31/2024 2:46 PM STICK WELDER [facility] Hemoglobin - Other 0.0 0.0 - 0.0 % 05/31/2024 2:46 PM STICK WELDER [facility] Hemoglobin Evaluation See Note 05/31/2024 2:46 PM STICK WELDER [facility] Comment: Impression: Hb S present [...] Globin (HBA1 and HBA2) Deletion/Duplication ([facility] test #[id number]) should be considered. Hb S/beta-plus thalassemia is typically characterized by more Hb S than Hb A with the presence of microcytosis. If microcytosis is present and Hb S/beta-plus thalassemia is suspected, Beta Globin (HBB) Sequencing ([facility] test #[id number]) is suggested. Hemoglobin analysis should be offered [...] developed and its performance characteristics determined by [facility]. It has not been cleared or approved by the U.S. Food and Drug Administration. This test was performed in a CLIA-certified laboratory and is intended for clinical purposes. Sickle Cell Solubility Reflex Positive(A) 05/31/2024 2:46 PM STICK WELDER [facility] Comment: INTERPRETIVE INFORMATION: Sickle Cell Solubility Reflex Not Performed: Solubility testing for Hemoglobin S not indicated. 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 Additional charges apply. Conf Previous: Positive for Hemoglobin S by HPLC. Solubility testing performed previously and not repeated with this submission. Hgb Capillary Electrophoresis Reflex Performed 05/31/2024 2:46 PM STICK WELDER [facility] Comment: INTERPRETIVE INFORMATION: Hgb Capillary Electrophoresis Reflex Not Performed: Confirmation by Capillary Electrophoresis not indicated. Performed: Results confirmed by Capillary Electrophoresis. Additional charges apply. Conf Previous: Capillary Electrophoresis confirmation performed as part of a previous submission. Confirmation not repeated with this submission. Performed By: [facility] [address] [place] [id number] Wink Cutter Operator: Devon Healy MD, PhD CLIA Number: [id number] Blood VENOUS LINE / Unknown IVAD (Port) / Unknown 05/29/2024 11:23 AM STICK WELDER 05/29/2024 11:30 AM STICK WELDER us Case Samuel MD LAB - BLOOD ORDERABLES Fi nal Result [facility] [address] [place] [address], [facility] [phone] * (ABNORMAL) Ferritin (05/29/2024 11:23 AM STICK WELDER) Ferritin 1,559(H) 6 - 175 ng/mL 05/29/2024 12:43 PM STICK WELDER [facility] Blood VENOUS LINE / Unknown IVAD (Port) / Unknown 05/29/2024 11:23 AM STICK WELDER 05/29/2024 11:29 AM STICK WELDER us Case Samuel MD LAB - BLOOD ORDERABLES Fi nal Result [facility] - [address] [facility] [place] [address] * Urine Culture (05/29/2024 11:23 AM STICK WELDER) Culture <10,000 CFU/mL Mixture of Urogenital Vickie 05/30/2024 9:45 AM STICK WELDER [facility] Urine URINE SPECIMEN OBTAINED BY CLEAN CATCH PROCEDURE / Unknown Non-blood Collection / Unknown 05/29/2024 11:23 AM STICK WELDER 05/29/2024 11:41 AM STICK WELDER us Case Samuel MD LAB - MICRO GENERAL ORDER SYD Final Result [facility] Inf. Diseases Diag. Lab 500 [facility], [address] [place] [address], [facility] * IR Procedure Note (05/25/2024 2:54 PM STICK WELDER) Narrative Myron Michel MD - 05/25/2024 2:54 PM STICK WELDER Myron Michel MD 05/25/2024 2:55 PM [facility] Procedure: IR Procedure Note Date/Time: 05/25/2024 [...] the procedure a time out was called [place] Protocol: the Joint [employer] [place] Protocol was followed Preparation: Patient was prepped and draped in usual sterile fashion ANESTHESIA Anesthesia: Local infiltration Local Anesthetic: Lidocaine 1% without epinephrine SEDATION Patient Sedated: Yes Sedation Type: Moderate (conscious) sedation Sedation: Fentanyl and midazolam Vital signs: Vital signs monitored during sedation See dictated procedure note for full details. Findings: Successful bilateral port placement apheresis on the right, 6 andorran smart port on the left Specimens: none Procedural Complications: None Condition: Stable Plan: 1 hour bedrest then okay to discharge PROCEDURE Describe Procedure: Successful bilateral port placement apheresis on the right, 6 andorran smart port on the left Patient Tolerance: Patient tolerated the procedure well with no immediate complications Length of time physician/provider present for 1:1 monitoring during sedation: 83-97 min us Myron Michel MD PROCEDURE/MINOR SURGICAL ORDERA BLES Final Result * IR Chest Port Placement > 5 Yrs of Age (05/25/2024 2:47 PM STICK WELDER) Only the most recent of2 resultswithin the time period is included. Anatomical Region Laterality Modality Chest Radio Fluoroscop y Impressions 05/25/2024 5:26 PM STICK WELDER IMPRESSION: Insertion of right-sided apheresis chest port, [...] mg Versed Sedation time: 97 minutes ATTENDING [id number] SEDATION TIME: less than 5 minutes. Access [...] placed: BD PowerFlow apheresis port Catheter size (Jordanian): 9.6 Lumens: Single-lumen Power injectable: Yes Catheter [...] JASWINDER COOPER MD Narrative 05/25/2024 5:26 PM STICK WELDER PROCEDURE: Venous port placement Procedural Personnel Attending [...] the remainder of the procedure. Procedure Date (y): 05/25/2024 Pre-procedure diagnosis: Sickle cell Post-procedure diagnosis: [...] mg Versed Sedation time: 97 minutes ATTENDING [id number] SEDATION TIME: less than 5 minutes. Access [...] placed: BD PowerFlow apheresis port Catheter size (Jordanian): 9.6 Lumens: Single-lumen Power injectable: Yes Catheter [...] IMG IR ORDERABLES Final R esult * N terminal pro BNP outpatient (05/23/2024 9:02 PM STICK WELDER) N Terminal Pro BNP Outpatient 74 0 - 450 pg/mL 05/23/2024 9:39 PM STICK WELDER [facility] Comment: Reference range shown [...] Unknown Venipuncture / Unknown 05/23/2024 9:02 PM STICK WELDER 05/23/2024 9:10 PM STICK WELDER us Marilia Summers MD LAB - BLOOD ORDERABLES Final Result [facility] [address] [place] [address], [facility] * (ABNORMAL) CK total (05/19/2024 3:05 AM STICK WELDER) CK 240(H) 26 - 192 U/L 05/19/2024 3:37 AM STICK WELDER [facility] Blood VENOUS LINE / Unknown Venipuncture / Unknown 05/19/2024 3:05 AM STICK WELDER 05/19/2024 3:18 AM STICK WELDER us Marilia Summers MD LAB - BLOOD ORDERABLES Final Result [facility] Lab [address] [place], [place] [id number], [place] from Last 3 Months Insurance [place] [address] [place] [id number] [place] Advance Directives For more information, please contact: [phone] * Full Code (Latest Code Status on [...] continue PREVIOUSLY ORDERED code status Care Teams Press Secretary Relationship Specialty Start Date End Date Veronica Joseph MD [address] [place] [address] PCP - General Family Medicine 06/18/24 Mor Ramsey Medical Student 04/03/24 Case Samuel MD [address] [place] [address], [address] [place] [address] Assigned Pediatric Specialist Provider 05/18/24 Juhi Benson, RN Specialty Service Desk Lead Hematology & Oncology 05/29/24
--- OUTSIDE RECORDS SUMMARY | 2024-07-28 20:49 | XMS_ITS | Encounter Summary ---
Author Organization [facility] Address [address] [place] [address]. [place] [address] Care Team Providers Care Director Of Sales Marketing Name Role Phone RoxyElvirac Unavailable Unavailable aCse Samuel MD Unavailable [phone] Juhi Benson RN Unavailable Unavailable Veronica Joseph MD Primary Care Provider [phone] Reason for Visit * Reason Comments Sickle Cell Pain Crisis Encounter Details Date Type Department Care Team ([facility] st Contact Info) Description 07/16/2024 8:33 PM CDT - 07/17/2024 12:58 AM CDT Emergency [facility] Emergency Department [address] [place] [phone] Polly Naylor MD [address] [place] [address] Sickle cell disease with crisis (H); Chest [...] on file Legal 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 Gender Identity Not on file Sexual Orientation Not on file documented as of this encounter Last Filed Vital Signs Vital Sign Reading Time Taken Comments Blood Pressure 111/75 07/16/2024 8:14 PM CDT Pulse 112 07/16/2024 8:14 PM CDT Temperature 36.7 C (98 F) 07/16/2024 8:14 PM CDT Respiratory Rate 18 07/16/2024 8:14 PM CDT Oxygen Saturation 95% 07/16/2024 8:14 PM CDT Inhaled Oxygen Concentration - - Weight 52.2 kg (115 lb) 07/16/2024 8:14 PM CDT Height 154.9 cm (5' 1) 07/16/2024 8:14 PM CDT Body Mass Index 21.73 07/16/2024 8:14 PM CDT documented in this encounter Discharge Instructions * Discharge Instructions* Polly Naylor MD - 07/17/2024 12:19 AM CDT You were seen in the emergency department due to sickle cell pain crisis and chest pain. You had lab work, x-rays, and medications here. You are not found to have any evidence of blood clots or pneumonia. You were feeling better after a pain medication. Please follow-up with your primary care doctor regarding ongoing management of your care. Return tothe was department with any worsening severe symptoms, feeling like you are to pass out, shortness of breath, pain cannot control documented in this encounter Medications at Time [...] 05/01/2024 naloxone (NARCAN) 4 MG/0.1ML nasal spray [place] 1 spray (4 mg) into one nostril [...] needed for severe pain. 45 tablet 07/11/2024 documented as of this encounter ED Notes * Polly Naylor MD - 07/16/2024 8:23 PM CDT ED Provider Note [facility] History Chief Complaint Patient presents with Sickle Cell Pain Crisis HPI Gianna Hernández is a 29 year old female with a history of sickle cell disease, prior PE on Eliquis and history of acute chest syndrome who presents to the emergency department for sickle cell pain. Patient reports that she began having pain in her lower back as well as in her left side of her chest yesterday. Has been using her home rescue medications with minimal relief. Does note that the pain on left side of her chest is worse with turning, twisting and direct palpation. Does have a littlebit of pain that is worse with deep inspiration as well. Has not missed any doses of her Eliquis, however notes that it does feel somewhat similar to when she has had previous PEs in the past, and wanted to check and make sure that she did not have anything more serious. Also was concerned because she has had a history of acute chest syndrome, and reports that she wanted to come in to get checkedout before it got worse. No fevers or chills. No cough, no abdominal pain, nausea or vomiting. No dysuria, urinary frequency, hematuria. Past Medical History Past Medical History: Diagnosis [...] all other systems negative. Physical Exam BP: 111/75 Pulse: 112 Temp: 98 ??F (36.7 ??C) Resp: 18 Height: 154.9 cm (5' 1) Weight: 52.2 kg (115 lb) SpO2: 95 % Physical Exam GEN: Well appearing, non toxic, cooperative HEENT: normocephalic and atraumatic, PERRLA, EOMI CV: well-perfused, normal skin color for ethnicity, tachycardia, no murmurs rubs or gallops, reproducible left anterior chest wall tenderness to palpation PULM: breathing comfortably, in no respiratory distress, clear to auscultation upper lower lung lindsay ABD: nondistended, soft, nontender, negative [place], negative [place] point tenderness, nonperitonitic Back: No midline back tenderness, some bilateral paraspinal lumbar tenderness EXT: Full range of motion. No edema. NEURO: awake, conversant, grossly normal bilateral upper and lower extremity strength & ROM SKIN: No rashes, ecchymosis, or lacerations PSYCH: Calm and cooperative, interactive ED Course, Procedures, & Data Procedures EKG Interpretation: Interpreted by Polly Naylor MD Time reviewed: 2117 Symptoms at time of EKG: chest pain Rhythm: normal sinus Rate: normal [place]: normal Ectopy: none Conduction: normal ST Segments/ T Waves: No ST-T wave changes Q Waves: none Comparison to prior: Unchanged Clinical Impression: normal EKG Results for orders placed or performed during the hospital encounter of 07/16/24 XR Chest 2 Views Status: None Narrative EXAM: CHEST 2 VIEWS LOCATION: [facility] DATE: 07/16/2024 INDICATION: Chest pain. COMPARISON: 07/10/2024. FINDINGS: A few curvilinear opacities in the lateral aspect of the mid right lung were present previously and likely represent scarring. The lungs are otherwise clear. Normal size cardiac silhouette.Bilateral subclavian central venous catheters are again noted. Impression IMPRESSION: No convincing evidence of active cardiopulmonary disease. Reticulocyte count Status: Abnormal Result Value Ref Range % Reticulocyte 5.7 (H) 0.5 - 2.0 % Absolute Reticulocyte 0.181 (H) 0.025 - 0.095 10e6/uL Comprehensive metabolic panel Status: Abnormal Result Value Ref Range Sodium 140 135 - 145 mmol/L Potassium 4.0 3.4 - 5.3 mmol/L Carbon Dioxide (CO2) 18 (L) 22 - 29 mmol/L Anion Gap 14 7 - 15 mmol/L Urea Nitrogen 9.7 6.0 - 20.0 mg/dL Creatinine 0.60 0.51 - 0.95 mg/dL GFR Estimate >90 >60 mL/min/1.73m2 Calcium 9.6 8.8 - 10.4 mg/dL Chloride 108 (H) 98 - 107 mmol/L Glucose 97 70 - 99 mg/dL Alkaline Phosphatase 113 40 - 150 U/L AST 43 0 - 45 U/L ALT 37 0 - 50 U/L Protein Total 8.5 (H) 6.4 - 8.3 g/dL Albumin 4.6 3.5 - 5.2 g/dL Bilirubin Total 2.0 (H) <=1.2 mg/dL INR Status: Abnormal Result Value Ref Range INR 1.37 (H) 0.85 - 1.15 Troponin T, High Sensitivity Status: Normal Result Value Ref Range Troponin T, High Sensitivity <6 <=14 ng/L D dimer quantitative Status: Normal Result Value Ref Range D-Dimer Quantitative 0.41 0.00 - 0.50 ug/mL FEU Narrative This D-dimer assay is intended for use in conjunction with a clinical pretest probability assessment model to exclude pulmonary embolism (PE) and deep venous thrombosis (DVT) in outpatients suspectedof PE or DVT. The cut-off value is 0.50 ug/mL FEU. CBC with platelets and differential Status: Abnormal Result Value Ref Range WBC Count 10.9 4.0 - 11.0 10e3/uL RBC Count 3.16 (L) 3.80 - 5.20 10e6/uL Hemoglobin 10.1 (L) 11.7 - 15.7 g/dL Hematocrit 30.2 (L) 35.0 - 47.0 % MCV 96 78 - 100 fL MCH 32.0 26.5 - 33.0 pg MCHC 33.4 31.5 - 36.5 g/dL RDW 15.9 (H) 10.0 - 15.0 % Platelet Count 529 (H) 150 - 450 10e3/uL % Neutrophils 67 % % Lymphocytes 16 % % Monocytes 15 % % Eosinophils 1 % % Basophils 1 % % Immature Granulocytes 1 % NRBCs per 100 WBC 0 <1 /100 Absolute Neutrophils 7.3 1.6 - 8.3 10e3/uL Absolute Lymphocytes 1.7 0.8 - 5.3 10e3/uL Absolute Monocytes 1.7 (H) 0.0 - 1.3 10e3/uL Absolute Eosinophils 0.1 0.0 - 0.7 10e3/uL Absolute Basophils 0.1 0.0 - 0.2 10e3/uL Absolute Immature Granulocytes 0.1 <=0.4 10e3/uL Absolute NRBCs 0.0 10e3/uL EKG 12-lead, tracing only Status: None (Preliminary result) Result Value Ref Range Systolic Blood Pressure mmHg Diastolic Blood Pressure mmHg Ventricular Rate 96 BPM Atrial Rate 96 BPM NJ Interval 140 ms QRS Duration 76 ms QT 346 ms QTc 437 ms P [place] 65 degrees R AXIS 67 degrees T [place] 24 degrees Interpretation ECG Sinus rhythm Normal ECG CBC with Platelets & Differential Status: Abnormal Narrative The following orders were created for panel order CBC with Platelets & Differential. Procedure Abnormality Status --------- ------ CBC with platelets and ...[[id number]] Abnormal Final result RBC and Platelet Morpho...[[id number]] Please view results for these tests on the individual orders. Medications hydromorphone (DILAUDID) injection 2 mg (2 mg Intravenous $Given 07/16/24 230) heparin lock flush 100 unit/mL injection 5-10 mL (has no administration in time range) lactated ringers BOLUS 1,000 mL (0 mLs Intravenous Stopped 07/17/24 0015) ondansetron (ZOFRAN) injection 8 mg (8 mg Intravenous $Given 07/16/242158) Labs Ordered and Resulted from Time of ED Arrival to Time of ED Departure RETICULOCYTE COUNT - Abnormal Result Value % Reticulocyte 5.7 (*) Absolute Reticulocyte 0.181 (*) COMPREHENSIVE METABOLIC PANEL - Abnormal Sodium 140 Potassium 4.0 Carbon Dioxide (CO2) 18 (*) Anion Gap 14 Urea Nitrogen 9.7 Creatinine 0.60 GFR Estimate >90 Calcium 9.6 Chloride 108 (*) Glucose 97 Alkaline Phosphatase 113 AST 43 ALT 37 Protein Total 8.5 (*) Albumin 4.6 Bilirubin Total 2.0 (*) INR - Abnormal INR 1.37 (*) CBC WITH PLATELETS AND DIFFERENTIAL - Abnormal WBC Count 10.9 RBC Count 3.16 (*) Hemoglobin 10.1 (*) Hematocrit 30.2 (*) MCV 96 MCH 32.0 MCHC 33.4 RDW 15.9 (*) Platelet Count 529 (*) % Neutrophils 67 % Lymphocytes 16 % Monocytes 15 % Eosinophils 1 % Basophils 1 % Immature Granulocytes 1 NRBCs per 100 WBC 0 Absolute Neutrophils 7.3 Absolute Lymphocytes 1.7 Absolute Monocytes 1.7 (*) Absolute Eosinophils 0.1 Absolute Basophils 0.1 Absolute Immature Granulocytes 0.1 Absolute NRBCs 0.0 TROPONIN T, HIGH SENSITIVITY - Normal Troponin T, High Sensitivity <6 D DIMER QUANTITATIVE - Normal D-Dimer Quantitative 0.41 XR Chest 2 Views Final Result IMPRESSION: No convincing evidence of active cardiopulmonary disease. Critical care was not performed. Medical Decision [...] details) The patient's management necessitated moderate risk (IV contrast administration) and high risk (a parenteral controlled substance). Assessment & Plan 29-year-old female with a past medical history of sickle cell anemia, PE currently on Eliquis with no missed doses, previous acute chest syndrome presenting to her department due to 1 day of bilateral back pain and left-sided chest pain that she reports feeling similar to her previous sickle cell crisis as well as possible feeling similar to acute chest for PE noted be tachycardic, but otherwise no hemodynamic instability, point tenderness appreciated in the left anterior chest wall. Plan for lab work, x-ray, troponin, EKG nonischemic with low suspicion of ACS. Most consistent withmusculoskeletal pain. No missed doses of her anticoagulant, however will plan for D-dimer. Will follow her sickle cell crisis care plan as below: ER/Acute Care/Infusion Clinic: Hydromorphone 2 mg IVP/SC Q1H X 3 doses LR 500 ml/hr x 2 hours (1 L total) Other: Zofran 8 mg IV 12:18 AM Workup unrevealing. D dimer negative. Feeling better after pain medications and requestingdischarge. Will discharge now. I have reviewed the nursing notes. I have reviewed the findings, diagnosis, plan and need for follow up with the patient. New Prescriptions No medications on file Final diagnoses: Sickle cell disease with crisis (H) Chest pain, unspecified type Polly Naylor MD [facility] EMERGENCY DEPARTMENT 07/16/2024 Polly Naylor MD 07/17/24 0019 * Oriana Marquis RN - 07/16/2024 8:15 PM CDT Ambulatory to triage. Came in due to sickle cell crisis. documented in this encounter Plan of Treatment Upcoming Encounters Date Type Department Care Team (Late st Contact Info) Description 08/07/2024 7:15 AM CDT Lab [facility] [address] [phone] Case Samuel MD [address] [place] [address], [address] [id number] 08/08/2024 8:00 AM CDT Appointment [facility] Advanced Treatment [address] [phone] Case Samuel MD [address] [place] [address], RO[address] [id number] 10/30/2024 11:30 AM CDT Lab [facility] [address] [phone] Case Samuel MD [address] [place] [address], ROOM [address] [id number] 10/30/2024 12:00 PM CDT Oncology Visit [facility] [address] [phone] Case Samuel MD [address] [place] [address], ROOM [address] [id number] documented as of this encounter Goals Goal [...] Comments CBC WITH PLATELETS AND DIFFERENTIAL STAT 07/16/2024 9:57 PM CDT TROPONIN T, HIGH SENSITIVITY STAT 07/16/2024 9:57 PM CDT CBC WITH PLATELETS & DIFFERENTIAL STAT 07/16/2024 9:57 PM CDT RETICULOCYTE COUNT STAT 07/16/2024 9: 57 PM CDT INR STAT 07/16/2024 9:57 PM CDT D DIMER QUANTITATIVE STAT 07/16/2024 9:57 PM CDT COMPREHENSIVE METABOLIC PANEL STAT 07/16/2024 9:57 PM CDT EKG 12-LEAD, TRACING ONLY STAT 07/16/2024 9:18 PM CDT XR CHEST 2 VIEWS STAT 07/16/2024 9:15 PM CDT documented in this encounter Results * (ABNORMAL) CBC with platelets and differential (07/16/2024 9:57 PM CDT) WBC Count 10.9 4.0 - 11.0 10e3/uL 07/16/2024 10:39 PM CDT [facility] RBC Count 3.16(L) 3.80 - 5.20 10e6/uL 07/16/2024 10:39 PM CDT [facility] Hemoglobin 10.1(L) 11.7 - 15.7 g/dL 07/16/2024 10:39 PM CDT [facility] Hematocrit 30.2(L) 35.0 - 47.0 % 07/16/2024 10:39 PM CDT [facility] MCV 96 78 - 100 fL 07/16/2024 10:39 PM CDT [facility] MCH 32.0 26.5 - 33.0 pg 07/16/2024 10:39 PM CDT [facility] MCHC 33.4 31.5 - 36.5 g/dL 07/16/2024 10:39 PM CDT [facility] RDW 15.9(H) 10.0 - 15.0 % 07/16/2024 10:39 PM CDT [facility] Platelet Count 529(H) 150 - 450 10e3/uL 07/16/2024 10:39 PM CDT [facility] % Neutrophils 67 % 07/16/2024 10:39 PM CDT [facility] % Lymphocytes 16 % 07/16/2024 10:39 PM CDT [facility] % Monocytes 15 % 07/16/2024 10:39 PM CDT [facility] % Eosinophils 1 % 07/16/2024 10:39 PM CDT [facility] % Basophils 1 % 07/16/2024 10:39 PM CDT [facility] % Immature Granulocytes 1 % 07/16/2024 10:39 PM CDT [facility] NRBCs per 100 WBC 0 <1 /100 025 10:39 PM CDT [facility] Absolute Neutrophils 7.3 1.6 - 8.3 10e3/uL 07/16/2024 10:39 PM CDT [facility] Absolute Lymphocytes 1.7 0.8 - 5.3 10e3/uL 07/16/2024 10:39 PM CDT [facility] Absolute Monocytes 1.7(H) 0.0 - 1.3 10e3/uL 07/16/2024 10:39 PM CDT [facility] Absolute Eosinophils 0.1 0.0 - 0.7 10e3/uL 07/16/2024 10:39 PM CDT [facility] Absolute Basophils 0.1 0.0 - 0.2 10e3/uL 07/16/2024 10:39 PM CDT [facility] Absolute Immature Granulocytes 0.1 <=0.4 10e3/uL 07/16/2024 10:39 PM CDT [facility] Absolute NRBCs 0.0 10e3/uL 07/16/2024 10:39 PM CDT [facility] Blood BLOOD SPECIMEN / Unknown Venipuncture / Unknown 07/16/2024 9:57 PM CDT 07/16/2024 10:14 PM CDT Polly Naylor MD LAB - BLOOD ORDERABLES Final Res ult [facility] [place] [facility] [address] [facility], [address] [phone] * D dimer quantitative (07/16/2024 9:57 PM CDT) [facility] D-Dimer Quantitative 0.41 0.00 - 0.50 ug/mL [...] BLOOD ORDERABLES Final Res ult [facility] [place] [facility] [address] [facility], [address] [phone] * Troponin T, High Sensitivity (07/16/2024 9:57 PM CDT) [facility] Troponin T, High Sensitivity <6 <=14 ng/L 07/16/2024 10:43 PM CDT [facility] Comment: Either a [...] 9:57 PM CDT 07/16/2024 10:14 PM CDT Polly Naylor MD LAB - BLOOD ORDERABLES Final Res ult Performing Organization Address City/[facility]/ZIP Co de Phone Number [facility]ATORY [facility] [place] [facility] [address] [facility], [address] * (ABNORMAL) INR (07/16/2024 9:57 PM CDT) [facility] INR 1.37(H) 0.85 - 1.15 07/16/2024 10:31 PM CDT [facility] Blood BLOOD SPECIMEN / Unknown Venipuncture / Unknown 07/16/2024 9:57 PM CDT 07/16/2024 10:14 PM CDT us Polly Naylor MD LAB - BLOOD ORDERABLES Final Res ult [facility] [place] [facility] [address] [facility], [address] * (ABNORMAL) Comprehensive metabolic panel (07/16/2024 9:57 PM CDT) Pathologist [facility] Sodium 140 135 - 145 mmol/L 07/16/2024 10:43 PM CDT [facility] Potassium 4.0 3.4 - 5.3 mmol/L 07/16/2024 10:43 PM CDT [facility] Carbon Dioxide (CO2) 18(L) 22 - 29 mmol/L 07/16/2024 10:43 PM CDT [facility] Anion Gap 14 7 - 15 mmol/L 07/16/2024 10:43 PM CDT [facility] Urea Nitrogen 9.7 6.0 - 20.0 mg/dL 07/16/2024 10:43 PM CDT [facility] Creatinine 0.60 0.51 - 0.95 mg/dL 07/16/2024 10:43 PM CDT [facility] GFR Estimate >90 >60 mL/min/1.7 3m2 07/16/2024 10:43 PM CDT [facility] Comment:eGFR calculated 2020 CKD-EPI equation. Calcium 9.6 8.8 - 10.4 mg/dL 07/16/2024 10:43 PM CDT [facility] Chloride 108(H) 98 - 107 mmol/L 07/16/2024 10:43 PM CDT [facility] Glucose 97 70 - 99 mg/dL 07/16/2024 10:43 PM CDT [facility] Alkaline Phosphatase 113 40 - 150 U/L 07/16/2024 10:43 PM CDT [facility] AST 43 0 - 45 U/L 07/16/2024 10:43 PM CDT [facility] ALT 37 0 - 50 U/L 07/16/2024 10:43 PM CDT [facility] Protein Total 8.5(H) 6.4 - 8.3 g/dL 07/16/2024 10:43 PM CDT [facility] Albumin 4.6 3.5 - 5.2 g/dL 07/16/2024 10:43 PM CDT [facility] Bilirubin Total 2.0(H) <=1.2 mg/dL 07/16/2024 10:43 PM CDT [facility] Blood BLOOD SPECIMEN / Unknown Venipuncture / Unknown 07/16/2024 9:57 PM CDT 07/16/2024 10:14 PM CDT us Polly Naylor MD LAB - BLOOD ORDERABLES Final Res ult Performing Organization Address City/[facility] Co de Phone Number [facility] Core Lab [address] [facility], [address] [phone] * (ABNORMAL) Reticulocyte count (07/16/2024 9:57 PM CDT) % Reticulocyte 5.7(H) 0.5 - 2.0 % 07/16/2024 10:23 PM CDT [facility] Absolute Reticulocyte 0.181(H) 0.025 - 0.095 10e6/uL 07/16/2024 10:23 PM CDT [facility] Blood BLOOD SPECIMEN / Unknown Venipuncture / Unknown 07/16/2024 9:57 PM CDT 07/16/2024 10:14 PM CDT Polly Naylor MD LAB - BLOOD ORDERABLES Final Res ult Performing Organization Address [facility] Phone Number LABORATORY [facility] Core Lab [address] [facility], [address] [phone] * EKG 12-lead, tracing only (07/16/2024 9:18 PM CDT) Pathologist [facility] Systolic Blood Pressure mmHg RADIOLOGY RESULTS Diastolic Blood Pressure mmHg RADIOLOGY RESULTS Ventricular Rate 96 BPM RAD IOLOGY RESULTS Atrial Rate 96 BPM RADIOLOG Y RESULTS NJ Interval 140 ms RADIOLOG Y RESULTS QRS Duration 76 ms RADIOLO GY RESULTS QT 346 ms RADIOLOGY RESULTS QTc 437 ms RADIOLOGY RESULTS P [place] 65 degrees RADIOLOGY RESULTS R AXIS 67 degrees RADIOLOGY RESULTS T [place] 24 degrees RADIOLOGY RESULTS Interpretation ECG Sinus rhythm Normal ECG Unconfirmed report - interpretation of this ECG is computer generated - see medical record for final interpretation Confirmed by - EMERGENCY ROOM, PHYSICIAN ([id number]), scientific publications editor NEGRA ASTORGA ([id number]) on 07/17/2024 6:57:43 AM RADIOLOGY RESULTS 07/16/2024 9:18 PM CDT 07/17/2024 6:57 AM CDT us Polly Naylor MD ECG ORDERABLES Edited Result - Final RADIOLOGY RESULTS * XR Chest 2 Views (07/16/2024 9:15 PM CDT) Anatomical Region Laterality Modality Chest Digital Radiogra phy 07/16/2024 9:15 PM CDT Impressions 07/16/2024 10:04 PM CDT IMPRESSION: No convincing evidence of active cardiopulmonary disease. Narrative 07/16/2024 10:04 PM CDT EXAM: CHEST 2 VIEWS LOCATION: [facility] DATE: 07/16/2024 INDICATION: Chest pain. COMPARISON: 07/10/2024. FINDINGS: A few curvilinear opacities in the lateral aspect of the mid right lung were present previously and likely represent scarring. The lungs are otherwise clear. Normal size cardiac silhouette. Bilateral subclavian central venous catheters are again noted. Procedure Note Rob Shukla MD - 07/16/2024 EXAM: CHEST 2 VIEWS LOCATION: [facility] DATE: 07/16/2024 INDICATION: Chest pain. COMPARISON: 07/10/2024. FINDINGS: A few curvilinear opacities in the lateral aspect of the midright lung were present previously and likely represent scarring. Thelungs are otherwise clear. Normal size cardiac silhouette. Bilateralsubclavian central venous catheters are again noted. IMPRESSION: No convincing evidence of active cardiopulmonary disease. Polly Naylor MD IMG DIAGNOSTIC IMAGING ORDERABLE S Final Result documented in this encounter Visit Diagnoses Diagnosis Sickle cell disease with crisis (H) Hb-SS disease with crisis Chest pain, unspecified type documented in this encounter Administered Medications Inactive Administered Medications - up to 3 most recent administrations Medication Order MAR Action Action Date Dose Rate Site heparin lock flush 100 unit/mL injection 5-10 mL 5-10 mL, Intracatheter, EVERY 28 DAYS, First dose on Wed07/17/24 at 0020, To de-access each port in dual implanted port. Flush with 10 mL NS sodium chloride 0.9% flush followed by 5 mL heparin (100 units/mL) at discharge and at least every 28 days. MAX: 5 mL per each port lumen $Given 07/17/2024 12:45 AM CDT 5 mLs hydromorphone (DILAUDID) injection 2 mg 2 mg, Intravenous, EVERY 1 HOUR PRN, severe pain, moderate pain, Starting on Wed07/16/24 at 2043, For 3 doses $Given 07/17/2024 12:19 AM CDT 2 mg $Given 07/16/2024 11:09 PM CDT 2 mg $Given 07/16/2024 9:58 PM CDT 2 mg lactated ringers BOLUS 1,000 mL Intravenous, 1,000 mL, ONCE, at 500 mL/hr, Administer over 2 Hours, On Wed07/16/24 at 2044, For 1 dose $New Bag 07/16/2024 9:59 PM CDT 1,000 mLs 500 mL/hr ondansetron (ZOFRAN) injection 8 mg 8 mg, Intravenous, ONCE, Administer over 2-5 Minutes, On Wed07/16/24 at 2044, For 1 dose $Given 07/16/2024 9:59 PM CDT 8 mg documented in this encounter Active and Recently Administered Medications Times are shown in CDT. Scheduled Medication Order 07/15/2024 07/16/2024 07/17/2024 heparin lock flush 100 unit/mL injection 5-10 mL 5-10 mL, Intracatheter, EVERY 28 DAYS, First dose on Wed07/17/24 at 0020, To de-access each port in dual implanted port. Flush with 10 mL NS sodium chloride 0.9% flush followed by 5 mL heparin (100 units/mL) at discharge and at least every 28 days. MAX: 5 mL per each port lumen 0045 ($Given - Provi nas: Abraham Geiger RN) lactated ringers BOLUS 1,000 mL (COMPLETED) Intravenous, 1,000 mL, ONCE, at 500 mL/hr, Administer over 2 Hours, On Wed07/16/24 at 2044, For 1 dose 2158 ($New Bag - Provider: Abraham Geiger RN) 001 (Stopped - Provider: Abraham Geiger RN) ondansetron (ZOFRAN) injection 8 mg (COMPLETED) 8 mg, Intravenous, ONCE, Administer over 2-5 Minutes, On Wed07/16/24 at 2044, For 1 dose 2159 ($Given - Provider: Abraham Geiger, SOFIA) PRN Medication Order 07/15/2024 07/16/2024 07/17/2024 hydromorphone (DILAUDID) injection 2 mg (COMPLETED) 2 mg, Intravenous, EVERY 1 HOUR PRN, severe pain, moderate pain, Starting on 07/16/24 at 2044, For 3 doses 2158 ($Given - Provider: Abraham Geiger RN)2309 ($Given - Provider: Alex Fernandez RN) 0019 ($Given - Provider: Abraham Geiger, SOFIA) documented in this encounter Care Teams Director Of Sales Marketing Relationship Specialty Start Date End Date Veronica Joseph MD [address] [place] [address] PCP - General Family Medicine 06/18/24 Mor Ramsey Medical Student 04/03/24 Case Samuel MD [address] [place] [address] 484, [address] [place] [address] Assigned Pediatric Specialist Provider 05/18/24 Juhi Benson, RN Specialty Visual Effects Artist Hematology & Oncology 05/29/24 documented as of this encounter
--- OUTSIDE RECORDS SUMMARY | 2024-07-28 20:50 | XMS_ITS | Encounter Summary ---
Author Organization [facility] Address [address] [place] [address]. 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 Gender Identity Not on file Sexual Orientation Not on file documented as of this encounter Plan of Treatment Upcoming Encounters Date Type Department Care Team (Late st Contact Info) Description 08/07/2024 7:15 AM CDT Lab [facility] [address] [phone] Case Samuel MD [address] [place] [address], [address] [address] 08/08/2024 8:00 AM CDT Appointment [facility] [address] [phone] Case Samuel MD [address] [place] [address], [address] [address] 10/30/2024 11:30 AM CDT Lab [facility] [address] [phone] Case Samuel MD [address] [place] [address], [address] [address] 10/30/2024 12:00 PM CDT Oncology Visit [facility] [address] [phone] Case Samuel MD [address] [facility] [address], [address] [place] [address] documented as of this encounter Goals Goal [...] filedocumented in this encounter Care Teams Shift Production Supervisor Relationship Specialty Start Date End Date Veronica Joseph MD [address] [place] [address] PCP - General Family Medicine 06/18/24 Mor Ramsey Medical Student 04/03/24 Case Samuel MD [address] [facility] [address], [address] [place] [address] Assigned Pediatric Specialist Provider 05/18/24 Juhi Benson, RN Specialty Drafter Cartographic Hematology & Oncology 05/29/24 documented as of this encounter
--- OUTSIDE RECORDS SUMMARY | 2024-07-28 20:50 | XMS_ITS | Encounter Summary ---
Author Organization [facility] Address [address] [place] [address]. [place] [address] Care Team Providers Care Director Of Career Services Name Role Phone R[employer]El[employer] Unavailable Unavailable Case Samuel MD Unavailable [phone] Juhi Benson RN Unavailable Unavailable Veronica Joseph MD Primary Care Provider [phone] Reason for Visit * Reason Comments Sickle Cell Pain Crisis Chest Pain Encounter Details Date Type Department Care Team ([facility] st Contact Info) Description 07/10/2024 7:00 PM CDT - 07/10/2024 11:30 PM CDT Emergency [facility] Emergency Department [address] [place] [phone] Alex Morton MD [address] [place] [address] Sickle cell pain crisis (H); Chest pain [...] file 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 Gender Identity Not on file Sexual Orientation Not on file documented as of this encounter Last Filed Vital Signs Vital Sign Reading Time Taken Comments Blood Pressure 109/71 07/10/2024 8:32 PM CDT Pulse 82 07/10/2024 10:08 PM CDT Temperature 36.5 C (97.7 F) 07/10/2024 5:55 PM CDT Respiratory Rate 18 07/10/2024 10:08 PM CDT Oxygen Saturation 99% 07/10/2024 10:08 PM CDT Inhaled Oxygen Concentration - - Weight - - Height - - Body Mass Index - - documented in this encounter Discharge Instructions * Discharge Instructions* Ifrah Wills PA-C - 07/10/2024 9:43 PM CDT Here in the emergency room have reassuring evaluation. Your chest x-ray today shows no findings forpneumonia or acute chest. Your basic laboratory studies here are also reassuring. You felt better after your care plan and medications were given. At this point you are safe to discharge. 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 You can use Tylenol as needed for pain at home as well as your prescribed pain medication. Return back to the emergency room if you develop any new or worsening symptoms. * Attachments The following attachments cannot be sent through Care Everywhere. * Chest Pain (Senegalese) * Sickle Cell Crisis (Senegalese) documented in this encounter Medications at Time [...] 05/01/2024 naloxone (NARCAN) 4 MG/0.1ML nasal spray [place] 1 spray (4 mg) into one nostril [...] as of this encounter ED Notes * Ifrah Wills PA-C - 07/10/2024 7:21 PM CDT ED Provider Note [facility] History Chief Complaint Patient presents with Sickle Cell Pain Crisis Chest Pain HPI Gianna Hernández is a 29 year old female with complex past medical history including history of sickle cell disease, recently diagnosed pulmonary embolism 06/26/2024 on Eliquis, history of acute chest syndrome presents to the emergency room with concerns for back pain lower extremity pain and chestpain. Patient notes she recently had her family over the weekend and they were out and about at the [employer]. She feels like she has a sickle cell pain crisis as she is had several days of back painand proximal lower extremity pain similar to prior sickle cell flares. Today however she notes new onset left-sided chest pain. Pain is worse with position changes and deep inspiration. She denies any associated fevers cough dyspnea hemoptysis nausea vomiting diarrhea abdominal pain urinary symptoms concern for . She has been taking her Eliquis as prescribed without any missed doses. Shedenies any injury to her chest wall. She is on oral Dilaudid as needed for breakthrough pain and notes she has taken 2 doses prior to arrival today. She was scheduled for outpatient hematology appointment today and notes that she did miss this and is scheduled for follow- up in 1 week from today. 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 Physical Exam BP: 110/74 Pulse: 94 Temp: 97.7 ??F (36.5 ??C) Resp: 18 SpO2: 98 % Physical Exam GENERAL APPEARANCE: The patient is well developed, well appearing, and in no acute distress. HEAD: Normocephalic. EENT: Voice normal. NECK: Trachea is midline. Uvula midline without exudates LUNGS: Breath sounds are equal and clear bilaterally. No wheezes, rhonchi, or rales. HEART: Regular rate and normal rhythm. Patient has [address] both without erythema lymphangitic streaking or edema. ABDOMEN: Soft, flat, and benign. No mass, tenderness, guarding, or rebound. EXTREMITIES: No cyanosis, clubbing, or edema. NEUROLOGIC: No focal sensory or motor deficits are noted. PSYCHIATRIC: The patient is awake, alert. Appropriate mood and affect. SKIN: Warm, dry, and well perfused. ED Course, Procedures, & Data Procedures EKG 07/10/2024: Results for orders placed or performed during the hospital encounter of 07/10/24 Chest XR, PA & LAT Status: None Narrative EXAM: XR CHEST 2 VIEWS LOCATION: [facility] DATE: 07/10/2024 INDICATION: Left-sided chest pain; sickle cell disease. COMPARISON: 07/05/2024. Impression IMPRESSION: No acute airspace consolidation. Unchanged architectural distortion within the periphery of the right midlung. Bilateral pulmonary nodular opacities are less well appreciated on today's examination. No pleural effusion or pneumothorax. Heart size is normal. Bilateral port catheters, unchanged in position. Comprehensive metabolic panel Status: Abnormal (Preliminary result) Result Value Ref Range Sodium 137 135 - 145 mmol/L Potassium 4.1 3.4 - 5.3 mmol/L Carbon Dioxide (CO2) 19 (L) 22 - 29 mmol/L Anion Gap 11 7 - 15 mmol/L Urea Nitrogen 8.7 6.0 - 20.0 mg/dL Creatinine 0.63 0.51 - 0.95 mg/dL GFR Estimate >90 >60 mL/min/1.73m2 Calcium Chloride 107 98 - 107 mmol/L Glucose 100 (H) 70 - 99 mg/dL Alkaline Phosphatase 109 40 - 150 U/L AST 42 0 - 45 U/L ALT 32 0 - 50 U/L Protein Total 8.1 6.4 - 8.3 g/dL Albumin 4.4 3.5 - 5.2 g/dL Bilirubin Total 1.4 (H) <=1.2 mg/dL Troponin T, High Sensitivity Status: Normal Result Value Ref Range Troponin T, High Sensitivity <6 <=14 ng/L HCG qualitative (blood) Status: Normal Result Value Ref Range hCG Serum Qualitative Negative Negative CBC with platelets and differential Status: Abnormal Result Value Ref Range WBC Count 10.5 4.0 - 11.0 10e3/uL RBC Count 3.41 (L) 3.80 - 5.20 10e6/uL Hemoglobin 10.9 (L) 11.7 - 15.7 g/dL Hematocrit 32.5 (L) 35.0 - 47.0 % MCV 95 78 - 100 fL MCH 32.0 26.5 - 33.0 pg MCHC 33.5 31.5 - 36.5 g/dL RDW 16.9 (H) 10.0 - 15.0 % Platelet Count 306 150 - 450 10e3/uL % Neutrophils 49 % % Lymphocytes 37 % % Monocytes 12 % % Eosinophils 1 % % Basophils 1 % % Immature Granulocytes 0 % NRBCs per 100 WBC 1 (H) <1 /100 Absolute Neutrophils 5.1 1.6 - 8.3 10e3/uL Absolute Lymphocytes 3.9 0.8 - 5.3 10e3/uL Absolute Monocytes 1.2 0.0 - 1.3 10e3/uL Absolute Eosinophils 0.1 0.0 - 0.7 10e3/uL Absolute Basophils 0.1 0.0 - 0.2 10e3/uL Absolute Immature Granulocytes 0.0 <=0.4 10e3/uL Absolute NRBCs 0.1 10e3/uL EKG 12 lead Status: None (Preliminary result) Result Value Ref Range Systolic Blood Pressure mmHg Diastolic Blood Pressure mmHg Ventricular Rate 83 BPM Atrial Rate 83 BPM ND Interval 134 ms QRS Duration 82 ms QT 364 ms QTc 427 ms P [place] 10 degrees R AXIS 64 degrees T [place] 20 degrees Interpretation ECG Sinus rhythm Normal ECG CBC with platelets differential Status: Abnormal Narrative The following orders were created for panel order CBC with platelets differential. Procedure Abnormality Status --------- ------ CBC with platelets and ...[[id number]] Abnormal Final result Please view results for these tests on the individual orders. Medications lactated ringers BOLUS 1,000 mL (1,000 mLs Intravenous $New Bag 07/10/242027) hydromorphone (DILAUDID) injection 2 mg (has no administration in time range) hydromorphone (DILAUDID) injection 2 mg (2 mg Intravenous $Given 07/10/242028) ondansetron (ZOFRAN) injection 8 mg (8 mg Intravenous $Given 07/10/242027) Labs Ordered and Resulted from Time of ED Arrival to Time of ED Departure COMPREHENSIVE METABOLIC PANEL - Abnormal Result Value Sodium 137 Potassium 4.1 Carbon Dioxide (CO2) 19 (*) Anion Gap 11 Urea Nitrogen 8.7 Creatinine 0.63 GFR Estimate >90 Calcium Chloride 107 Glucose 100 (*) Alkaline Phosphatase 109 AST 42 ALT 32 Protein Total 8.1 Albumin 4.4 Bilirubin Total 1.4 (*) CBC WITH PLATELETS AND DIFFERENTIAL - Abnormal WBC Count 10.5 RBC Count 3.41 (*) Hemoglobin 10.9 (*) Hematocrit 32.5 (*) MCV 95 MCH 32.0 MCHC 33.5 RDW 16.9 (*) Platelet Count 306 % Neutrophils 49 % Lymphocytes 37 % Monocytes 12 % Eosinophils 1 % Basophils 1 % Immature Granulocytes 0 NRBCs per 100 WBC 1 (*) Absolute Neutrophils 5.1 Absolute Lymphocytes 3.9 Absolute Monocytes 1.2 Absolute Eosinophils 0.1 Absolute Basophils 0.1 Absolute Immature Granulocytes 0.0 Absolute NRBCs 0.1 TROPONIN T, HIGH SENSITIVITY - Normal Troponin T, High Sensitivity <6 HCG QUALITATIVE - Normal hCG Serum Qualitative Negative Chest XR, PA & LAT Final Result IMPRESSION: No acute airspace consolidation. Unchanged architectural distortion within the periphery of the right midlung. Bilateral pulmonary nodular opacities are less well appreciated on today's examination. No pleural effusion or pneumothorax. Heart size is normal. Bilateral port catheters, unchanged in position. Critical care was not performed. Medical Decision [...] drug management including medications given in the ED) and high risk (a parenteral controlled substance). Assessment & Plan This is a 29-year-old female with history of sickle cell disease began with concerns for back pain and proximal lower extremity pain similar to prior sickle cell flares along with new onset chest pain today. Vital signs reassuring here. Patient has clear breath sounds. She is not toxic appearing. Reviewed medical records including recently diagnosed pulmonary embolism. She is adamant that she hasbeen taking her anticoagulation without any missed doses. With clinical history consider broad differential including ACS, pneumonia, pneumothorax, increased clot burden with her known PE in the setting of her taking her anticoagulation as prescribed with reassuring vitals here. Consider acute chest as well with her history of prior acute chest syndrome. Plan for routine labs CBC chemistry chest x-ray troponin EKG. She had reticulocyte count obtained yesterday. Will initiate care plan for sickle cell pain crisis. Initial EKG here without findings for ischemia or other arrhythmias. CBC without leukocytosis patient Nema 10.9 per chart review slightly up from her baseline. Chemistry reassuring shows no ANGIE normal electrolytes. negative troponin normal. Chest x-ray clear without any new changes from prior to suggest acute chest. Patient was given medications per her care plan including normal saline, Zofran, and Dilaudid. At time of signout patient had gotten 2 doses of pain medication, with another 1 dose available. Discussed with her close follow-up with hematology. If she is feeling improved she is able to discharge. Patient seen and discussed with attending physician , who agrees with my plan of care. I have reviewed the nursing notes. I have reviewed the findings, diagnosis, plan and need for follow up with the patient. New Prescriptions No medications on file Final diagnoses: Sickle cell pain crisis (H) Chest pain [facility] EM[facility]GENCY [facility]PARTMENT 07/10/2024 Ifrah Wills PA-C 07/10/24 2214 Cosigned by Alex Morton MD at 07/11/2024 2:13 AM CDT Associated attestation - Alex Morton MD - 07/11/2024 2:13 AM CDT -- ED Attending Physician Attestation I Alex Morton MD, cared for this patient with the Advanced Practice Provider (TIFFANY). I personally provided a substantive portion of the care for this patient, including approving the care plan for the number and complexity of problems addressed. I discussed management with the TIFFANY. The patientreported improvement in symptoms and requested discharge with outpatient follow-up. Aware of returnprecautions. Please see the TIFFANY's documentation for full details. Alex Morton MD Emergency Medicine * Woody Wade, RN - 07/10/2024 5:57 PM CDT Pain started two days ago. Chest pain new. Concerned about acute chest. Triage Assessment (Adult) Row Name 07/10/24 175 Triage Assessment Airway WDL WDL Respiratory WDL Respiratory WDL WDL Skin Circulation/Temperature WDL Skin Circulation/Temperature WDL WDL Cardiac WDL Cardiac WDL WDL Peripheral/Neurovascular WDL Peripheral Neurovascular WDL WDL Cognitive/Neuro/Behavioral WDL Cognitive/Neuro/Behavioral WDL WDL documented in this encounter Plan of Treatment Upcoming Encounters Date Type Department Care Team (Late st Contact Info) Description 08/07/2024 7:15 AM CDT Lab [facility] [address] [phone] Case Samuel MD [address] [place] [address], [address] [place], [place] [phone] 08/08/2024 8:00 AM CDT Appointment [facility] [address] [phone] Case Samuel MD [address] [place] [address], [address] [place] [address] 10/30/2024 11:30 AM CDT Lab [address] [phone] Case Samuel MD [address] [place] [address], [address] [place] [address] 10/30/2024 12:00 PM CDT Oncology Visit [facility] [address] [place] [phone] Case Samuel MD [address] [facility] [address], [address] [place] [address] documented as of this encounter Goals Goal [...] Comments CBC WITH PLATELETS AND DIFFERENTIAL STAT 07/10/2024 8:16 PM CDT TROPONIN T, HIGH SENSITIVITY STAT 07/10/2024 8:16 PM CDT CBC WITH PLATELETS & DIFFERENTIAL STAT 07/10/2024 8:16 PM CDT HCG QUALITATIVE STAT 07/10/2024 8:16 PM CDT COMPREHENSIVE METABOLIC PANEL STAT 07/10/2024 8:16 PM CDT XR CHEST 2 VIEWS STAT 07/10/2024 7:35 PM CDT EKG 12-LEAD, TRACING ONLY STAT 07/10/2024 7:26 PM CDT documented in this encounter Results * (ABNORMAL) CBC with platelets and differential (07/10/2024 8:16 PM CDT) WBC Count 10.5 4.0 - 11.0 10e3/uL 07/10/2024 8:29 PM CDT [facility] RBC Count 3.41(L) 3.80 - 5.20 10e6/uL 07/10/2024 8:29 PM CDT [facility] Hemoglobin 10.9(L) 11.7 - 15.7 g/dL 07/10/2024 8:29 PM CDT [facility] Hematocrit 32.5(L) 35.0 - 47.0 % 07/10/2024 8:29 PM CDT [facility] MCV 95 78 - 100 fL 07/10/2024 8:29 PM CDT [facility] MCH 32.0 26.5 - 33.0 pg 07/10/2024 8:29 PM CDT [facility] MCHC 33.5 31.5 - 36.5 g/dL 07/10/2024 8:29 PM CDT [facility] RDW 16.9(H) 10.0 - 15.0 % 07/10/2024 8:29 PM CDT [facility] Platelet Count 306 150 - 450 10e3/uL 07/10/2024 8:29 PM CDT [facility] % Neutrophils 49 % 07/10/2024 8:29 PM CDT [facility] % Lymphocytes 37 % 07/10/2024 8:29 PM CDT [facility] % Monocytes 12 % 07/10/2024 8:29 PM CDT [facility] % Eosinophils 1 % 07/10/2024 8:29 PM CDT [facility] % Basophils 1 % 07/10/2024 8:29 PM CDT [facility] % Immature Granulocytes 0 % 07/10/2024 8:29 PM CDT [facility] NRBCs per 100 WBC 1(H) <1 /100 025 8:29 PM CDT [facility] Absolute Neutrophils 5.1 1.6 - 8.3 10e3/uL 07/10/2024 8:29 PM CDT [facility] Absolute Lymphocytes 3.9 0.8 - 5.3 10e3/uL 07/10/2024 8:29 PM CDT [facility] Absolute Monocytes 1.2 0.0 - 1.3 10e3/uL 07/10/2024 8:29 PM CDT [facility] Absolute Eosinophils 0.1 0.0 - 0.7 10e3/uL 07/10/2024 8:29 PM CDT [facility] Absolute Basophils 0.1 0.0 - 0.2 10e3/uL 07/10/2024 8:29 PM CDT [facility] Absolute Immature Granulocytes 0.0 <=0.4 10e3/uL 07/10/2024 8:29 PM CDT [facility] Absolute NRBCs 0.1 10e3/uL 07/10/2024 8:29 PM CDT [facility] Blood BLOOD SPECIMEN / Unknown Venipuncture / Unknown 07/10/2024 8:16 PM CDT 07/10/2024 8:23 PM CDT Ifrah Wills PA-C LAB - BLOOD ORDERABLES Fin al Result Performing Organization Address City/[facility]/ZIP Co de Phone Number [facility] [address] [facility], [address] [place] [phone] * HCG qualitative (blood) (07/10/2024 8:16 PM CDT) Pathologist [facility] hCG Serum Qualitative Negative Negative JAERT 07/10/2024 8:55 PM CDT [facility] Comment:This test is for scr eening purposes. Results should be interpreted along with the clinical picture. Confirmation testing is available if warranted by ordering [id number], HCG Quantitative . Blood BLOOD SPECIMEN / Unknown Venipuncture / Unknown 07/10/2024 8:16 PM CDT 07/10/2024 8:20 PM CDT Ifrah Wills PA-C LAB - BLOOD ORDERABLES Fin al Result [facility] [address] [facility], [address] [place] [phone] * Troponin T, High Sensitivity (07/10/2024 8:16 PM CDT) [facility] Troponin T, High Sensitivity <6 <=14 ng/L 07/10/2024 8:56 PM CDT [facility] Comment: Either a [...] / Unknown 07/10/2024 8:16 PM CDT 07/10/2024 8:23 PM CDT us Ifrah Wills PA-C LAB - BLOOD ORDERABLES Fin al Result [facility] [address] [facility], [address] [place] [phone], [facility] * (ABNORMAL) Comprehensive metabolic panel (07/10/2024 8:16 PM CDT) [facility] Sodium 137 135 - 145 mmol/L 07/10/2024 10:19 PM CDT [facility] Potassium 4.1 3.4 - 5.3 mmol/L 07/10/2024 10:19 PM CDT [facility] Carbon Dioxide (CO2) 19(L) 22 - 29 mmol/L 07/10/2024 10:19 PM CDT [facility] Anion Gap 11 7 - 15 mmol/L 07/10/2024 10:19 PM CDT [facility] Urea Nitrogen 8.7 6.0 - 20.0 mg/dL 07/10/2024 10:19 PM CDT [facility] Creatinine 0.63 0.51 - 0.95 mg/dL 07/10/2024 10:19 PM CDT [facility] GFR Estimate >90 >60 mL/min/1.7 3m2 07/10/2024 10:19 PM CDT [facility] Comment:eGFR calculated 2020 CKD-EPI equation. Calcium 9.5 8.8 - 10.4 mg/dL 07/10/2024 10:19 PM CDT [facility] Chloride 107 98 - 107 mmol/L 07/10/2024 10:19 PM CDT [facility] Glucose 100(H) 70 - 99 mg/dL 07/10/2024 10:19 PM CDT [facility] Alkaline Phosphatase 109 40 - 150 U/L 07/10/2024 10:19 PM CDT [facility] AST 42 0 - 45 U/L 07/10/2024 10:19 PM CDT [facility] ALT 32 0 - 50 U/L 07/10/2024 10:19 PM CDT [facility] Protein Total 8.1 6.4 - 8.3 g/dL 07/10/2024 10:19 PM CDT [facility] Albumin 4.4 3.5 - 5.2 g/dL 07/10/2024 10:19 PM CDT [facility] Bilirubin Total 1.4(H) <=1.2 mg/dL 07/10/2024 10:19 PM CDT [facility] Blood BLOOD SPECIMEN / Unknown Venipuncture / Unknown 07/10/2024 8:16 PM CDT 07/10/2024 8:23 PM CDT Ifrah Wills PA-C LAB - BLOOD ORDERABLES Fin al Result [facility] [address] [facility] [address], [address] [place] [address], [facility] * Chest XR, PA & LAT (07/10/2024 7:35 PM CDT) Anatomical Region Laterality Modality Chest Digital Radiogra phy 07/10/2024 7:35 PM CDT Impressions 07/10/2024 8:04 PM CDT IMPRESSION: No acute airspace consolidation. Unchanged architectural distortion within the periphery of the right midlung. Bilateral pulmonary nodular opacities are less well appreciated on today's examination. No pleural effusion or pneumothorax. Heart size is normal. Bilateral port catheters, unchanged in position. Narrative 07/10/2024 8:04 PM CDT EXAM: XR CHEST 2 VIEWS LOCATION: [facility] DATE: 07/10/2024 INDICATION: Left-sided chest pain; sickle cell disease. COMPARISON: 07/05/2024. Procedure Note Enoc Bruce MD - 07/10/2024 EXAM: XR CHEST 2 VIEWS LOCATION: [facility] DATE: 07/10/2024 INDICATION: Left-sided chest pain; sickle cell disease. COMPARISON: 07/05/2024. IMPRESSION: No acute airspace consolidation. Unchanged architecturaldistortion within the periphery of the right midlung. Bilateral pulmonarynodular opacities are less well appreciated on today's examination. No pleural effusion or pneumothorax. Heart size is normal. Bilateral port catheters, unchanged in position. us Ifrah Wills PA-C IMG DIAGNOSTIC IMAGING ORD ERABLES Final Result * EKG 12 lead (07/10/2024 7:26 PM CDT) Systolic Blood Pressure mmHg RADIOLOGY RESULTS Diastolic Blood Pressure mmHg RADIOLOGY RESULTS Ventricular Rate 83 BPM RAD IOLOGY RESULTS Atrial Rate 83 BPM RADIOLOG Y RESULTS ND Interval 134 ms RADIOLOG Y RESULTS QRS Duration 82 ms RADIOLO GY RESULTS QT 364 ms RADIOLOGY RESULTS QTc 427 ms RADIOLOGY RESULTS P [place] 10 degrees RADIOLOGY RESULTS R AXIS 64 degrees RADIOLOGY RESULTS T [place] 20 degrees RADIOLOGY RESULTS Interpretation ECG Sinus rhythm Normal ECG Unconfirmed report - interpretation of this ECG is computer generated - see medical record for final interpretation Confirmed by - EMERGENCY ROOM, PHYSICIAN ([id number]), editor in chief JESSICA CLANCY ([id number]) on 07/11/2024 7:54:21 AM RADIOLOGY RESULTS 07/10/2024 7:26 PM CDT 07/11/2024 7:54 AM CDT Ifrah Wills PA-C ECG ORDERABLES Edited Res ult - Final RADIOLOGY RESULTS documented in this encounter Visit Diagnoses Diagnosis 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 Chest pain Chest pain, unspecified documented in this encounter Administered Medications Inactive Administered Medications - up to 3 most recent administrations Medication Order MAR Action Action Date Dose Rate Site heparin lock flush 100 unit/mL injection 100 Units 100 Units, Intravenous, ONCE, On Wed07/10/24 at 2325, For 1 dose $Given 07/10/2024 11:26 PM CDT 100 Units hydromorphone (DILAUDID) injection 2 mg 2 mg, Intravenous, ONCE, On Wed07/10/24 at 1920, For 1 dose $Given 07/10/2024 8:29 PM CDT 2 mg hydromorphone (DILAUDID) injection 2 mg 2 mg, Intravenous, ONCE, On Wed07/10/24 at 2125, For 1 dose $Given 07/10/2024 10:01 PM CDT 2 mg lactated ringers BOLUS 1,000 mL Intravenous, 1,000 mL, ONCE, at 500 mL/hr, Administer over 2 Hours, On Wed07/10/24 at 1920, For 1 dose $New Bag 07/10/2024 8:28 PM CDT 1,000 mLs 500 mL/hr ondansetron (ZOFRAN) injection 8 mg 8 mg, Intravenous, ONCE, Administer over 2-5 Minutes, On Wed07/10/24 at 1920, For 1 dose $Given 07/10/2024 8:28 PM CDT 8 mg documented in this encounter Active and Recently Administered Medications Times are shown in CDT. Scheduled Medication Order 07/08/2024 07/09/2024 07/10/2024 heparin lock flush 100 unit/mL injection 100 Units (COMPLETED) 100 Units, Intravenous, ONCE, On Wed07/10/24 at 2325, For 1 dose 2325 ($Given - Provi nas: Katie Parker RN) hydromorphone (DILAUDID) injection 2 mg (COMPLETED) 2 mg, Intravenous, ONCE, On Wed07/10/24 at 1920, For 1 dose 2028 ($Given - Provi nas: Abraham Geiger RN) hydromorphone (DILAUDID) injection 2 mg (COMPLETED) 2 mg, Intravenous, ONCE, On Wed07/10/24 at 2125, For 1 dose 2200 ($Given - Provi nas: Katie Parker RN) lactated ringers BOLUS 1,000 mL (COMPLETED) Intravenous, 1,000 mL, ONCE, at 500 mL/hr, Administer over 2 Hours, On Wed07/10/24 at 1920, For 1 dose 2027 ($New Bag - Pro vider: Abraham Geiger RN)2320 (Stopped - Provider: Katie Parker RN) ondansetron (ZOFRAN) injection 8 mg (COMPLETED) 8 mg, Intravenous, ONCE, Administer over 2-5 Minutes, On Wed07/10/24 at 1920, For 1 dose 2027 ($Given - Provi nas: Abraham Geiger RN) documented in this encounter Care Teams Director Of Career Services Relationship Specialty Start Date End Date Veronica Joseph MD [address] [place] [address] PCP - General Family Medicine 06/18/24 Mor Ramsey Medical Student 04/03/24 Case Samuel MD [address] [place] [address], [address] [place], [place] [address] Assigned Pediatric Specialist Provider 05/18/24 Juhi Benson, [employer] Vice Principal Hematology & Oncology 05/29/24 documented as of this encounter
--- OUTSIDE RECORDS SUMMARY | 2024-07-28 20:50 | XMS_ITS | Encounter Summary ---
Author Organization [facility] Address [address] [place] [address]. 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 Gender Identity Not on file Sexual Orientation Not on file documented as of this encounter Plan of Treatment Upcoming Encounters Date Type Department Care Team (Late st Contact Info) Description 08/07/2024 7:15 AM CDT Lab [facility] [address] [phone] Case Samuel MD [address] [place] [address], RO[address] [address] 08/08/2024 8:00 AM CDT [facility]ointment [facility] [address] [phone] Case Samuel MD [address] [place] [address], [address] [address] 10/30/2024 11:30 AM CDT Lab [facility] [address] [phone] Case Samuel MD [address] [place] [address], [address] [address] 10/30/2024 12:00 PM CDT Oncology Visit [facility] [address] [phone] Case Samuel MD [address] [facility] [address], [address] [place] [address] documented as of this encounter Goals Goal [...] on filedocumented in this encounter Care Teams Gymnastic Coach Relationship Specialty Start Date End Date Veronica Joseph MD [address] [place] [address] PCP - General Family Medicine 06/18/24 Mor Ramsey Medical Student 04/03/24 Case Samuel MD [address] [facility] [address], [address] [place] [address] Assigned Pediatric Specialist Provider 05/18/24 Juhi Benson, RN Specialty Pediatric Physical Therapist Hematology & Oncology 05/29/24 documented as of this encounter
--- OUTSIDE RECORDS SUMMARY | 2024-07-28 20:50 | XMS_ITS | Encounter Summary ---
Author Organization [facility] Address [address] [place] [address]. [place] [address] Care Team Providers Care Fitter Hand Name Role Phone RoxyElvirac Unavailable Unavailable Case Samuel MD Unavailable [phone] Juhi Benson RN Unavailable Unavailable Veronica Joseph MD Primary Care Provider [phone] Reason for Visit * Reason Comments Back Pain Leg Pain bilateral Encounter Details Date Type Department Care Team ([facility] st Contact Info) Description 07/11/2024 3:03 PM CDT - 07/11/2024 7:35 PM CDT Emergency [facility] Emergency Department [address] [place] [phone] Ana Toney MD [address] [place] [id number] Sickle cell pain crisis (H) Discharge [...] Reading Time Taken Comments Blood Pressure 111/67 07/11/2024 7:34 PM CDT Pulse 69 07/11/2024 7:34 PM CDT Temperature 36.6 C (97.8 F) 07/11/2024 7:34 PM CDT Respiratory Rate 16 07/11/2024 7:34 PM CDT Oxygen Saturation 100% 07/11/2024 2:42 PM CDT Inhaled Oxygen Concentration - - Weight 49.1 kg (108 lb 4.8 oz) 07/11/2024 2:42 P M CDT Height - - Body Mass Index 20.46 07/07/2024 7:15 PM CDT documented in this encounter Discharge Instructions * Discharge Instructions* Ana Toney MD - 07/11/2024 7:29 PM CDT Please make an appointment to follow up with Hematology Oncology Clinic (phone: [phone]) as soon as possible. If you have any worsening symptoms including fevers, chest pain, shortness of breath or other concerns return to the emergency department for reevaluation. * Attachments The following attachments cannot be sent through Care Everywhere. * Sickle Cell Crisis (Mosotho) documented in this encounter Medications at Time [...] 05/01/2024 naloxone (NARCAN) 4 MG/0.1ML nasal spray Mingo 1 spray (4 mg) into one nostril [...] as of this encounter ED Notes * Ana Toney MD - 07/11/2024 3:05 PM CDT ED Provider Note [facility] History Chief Complaint Patient presents with Back Pain Leg Pain bilateral HPI Gianna Hernández is a 29 year old female with a history of sickle cell disease, prior PE on Eliquis and history of acute chest syndrome who presents to the emergency department with generalized myalgias and concern for pain crisis. She reports that her family was visiting over the weekend and shewas very active at the [employer]. She feels that she overdid it. She is currently endorsingpain in her back and legs. She was seen in the emergency department yesterday for chest pain which has subsequently resolved. She reports she was going to take her home medications but ran out today and was unable to get a refill. She attempted to get into the pain clinic but they did not have avail ability for infusion. She denies any fevers, cough, ongoing chest pain, shortness of breath, abdominal pain or urinary symptoms. Denies any numbness, tingling or weakness into the extremities. She denies any falls or traumatic injury. This part of the medical record was transcribed by Carmine Urias, Thread Spooler, from a dictationdone by Ana Toney MD. Physical Exam BP: 108/75 Pulse: 83 Temp: 98.5 ??F (36.9 ??C) Resp: 18 Weight: 49.1 kg (108 lb 4.8 oz) SpO2: 100 % Physical Exam General: patient is alert and oriented and in no acute distress Head: atraumatic and normocephalic EENT: moist mucus membranes without tonsillar erythema or exudates, pupils round and reactive Neck: supple Cardiovascular: regular rate and rhythm, extremities warm and well perfused, no lower extremity edema Pulmonary: lungs clear to auscultation bilaterally Abdomen: soft, non-tender, no significant CVA TTP Musculoskeletal: normal range of motion Neurological: alert and oriented, moving all extremities symmetrically, gait normal Skin: warm, dry ED Course, Procedures, & Data Procedures No results found for any visits on 07/11/24. Medications - No data to display Labs [...] (a parenteral controlled substance). Assessment & Plan Ms. Hernández is a 29-year-old female with history of sickle cell pain, prior acute chest, PE on Eliquis who presents to the emergency department with generalized back pain and upper leg pain. She is hemodynamically stable, afebrile and in no respiratory distress. History and exam are most suggestive of pain crises. She denies any recent infectious symptoms and does not have any signs or symptoms for acute chest syndrome. She was seen and evaluated yesterday for chest pain with a negative workup including negative chest x-ray. She has been compliant with her home Eliquis and low suspicion for worsening PE. Laboratory evaluation shows stable hemoglobin at 10.7, no leukocytosis. Total bilirubin is 1.4, unchanged from yesterday. UA shows no evidence of UTI. She was treated per her care plan. Onreassessment she is feeling improved. Plan to discharge to home with ongoing outpatient hematology follow-up and close return precautions. This part of the medical record was transcribed by Carmine Urias, Thread Spooler, from a dictationdone by Ana Toney MD. I have reviewed the nursing notes. I have reviewed the findings, diagnosis, plan and need for follow up with the patient. Discharge Medication List as of 07/11/2024 7:31 PM Final diagnoses: Sickle cell pain crisis (H) I, Carmine Urias, am serving as a trained diagnostic medical sonographer to document services personally performedby Ana Toney MD, based on the provider's statements to me. Mercedes, Ana Toney MD, was physically present and have reviewed and verified the accuracy of this note documented by Carmine Urias. Ana Toney MD [facility] EMERGENCY DEPARTMENT 07/11/2024 Ana Toney MD 07/11/241937 * Dennis Tejeda RN - 07/11/2024 2:40 PM CDT Pt presents to triage for sickle cell pain in back and bilateral legs. Was seen in ED yesterday. She is unable to fill her pain medications until tomorrow due to the pharmacy being out of stock. documented in this encounter Plan of Treatment Upcoming Encounters Date Type Department Care Team (Late st Contact Info) Description 08/07/2024 7:15 AM CDT Lab [facility] [address] [phone] Case Samuel MD [address] [place] [address], [address] [place] [address] 08/08/2024 8:[address] [facility] [address] [phone] Case Samuel MD [address] [place] [address], [address] [place] [address] 10/30/2024 11:30 AM CDT Lab [facility] [address] [phone] Case Samuel MD [address] [facility] [address], [address] [place], [place] [id number] 10/30/2024 12:00 PM CDT Oncology Visit [facility] [address] [place] [phone] Case Samuel MD [address] [facility] [address], [address] [place] [address] documented as of this encounter Goals Goal [...] Associated Diagnosis Comments HCG QUALITATIVE URINE STAT 07/11/2024 6:08 PM CDT ROUTINE UA WITH MICROSCOPIC REFLEX TO CULTURE STAT 07/11/2024 6:08 PM CDT CBC WITH PLATELETS AND DIFFERENTIAL STAT 07/11/2024 4:15 PM CDT TYPE AND SCREEN, ADULT STAT 4:15 PM CDT CBC WITH PLATELETS & DIFFERENTIAL STAT 07/11/2024 4:15 PM CDT RETICULOCYTE COUNT Add-On 07/11/2024 4: 15 PM CDT INR STAT 07/11/2024 4:15 PM CDT COMPREHENSIVE METABOLIC PANEL STAT 07/11/2024 4:15 PM CDT ABO/RH TYPE AND SCREEN STAT 4:15 PM CDT documented in this encounter Results * HCG qualitative urine (UPT) (07/11/2024 6:08 PM CDT) hCG Urine Qualitative Negative Negative JARET 07/11/2024 6:30 PM CDT [facility] Comment:This test is for scr eening purposes. Results should be interpreted along with the clinical picture. Confirmation testing is available if warranted by ordering [id number], HCG Quantitative . Urine URINE SPECIMEN OBTAINED BY CLEAN CATCH PROCEDURE / Unknown Non-blood Collection / Unknown 07/11/2024 6:08 PM CDT 07/11/2024 6:19 PM CDT Ana Toney MD LAB - URINE ORDERABLES Fi nal Result [facility] [address] [facility], Room [address] [place] [phone] * (ABNORMAL) UA with Microscopic reflex to Culture (07/11/2024 6:08 PM CDT) Color Urine Light Yellow Colorless, Straw, Light Yellow, Yellow 07/11/2024 6:28 PM CDT [facility] Appearance Urine Clear Clear 07/12/19 6:28 PM CDT [facility] Glucose Urine Negative Negative mg/dL 07/11/2024 6:28 PM CDT [facility] Bilirubin Urine Negative Negative 6:28 PM CDT [facility] Ketones Urine Negative Negative mg/dL 07/11/2024 6:28 PM CDT [facility] Specific [place] Urine 1.011 1.003 - 1.035 07/11/2024 6:28 [...] CDT Urine Culture not indicated us Ana Toney MD LAB - URINE ORDERABLES Fi nal Result [facility] [address] [facility], Room [address] [place] [phone] * (ABNORMAL) Reticulocyte count (07/11/2024 4:15 PM CDT) Pathologist [facility] % Reticulocyte 7.1(H) 0.5 - 2.0 % 07/11/2024 8:21 PM CDT [facility] Absolute Reticulocyte 0.244(H) 0.025 - 0.095 10e6/uL 07/11/2024 8:21 PM CDT [facility] Blood BLOOD SPECIMEN / Unknown Venipuncture / Unknown 07/11/2024 4:15 PM CDT 07/11/2024 4:30 PM CDT Ana Toney MD LAB - BLOOD ORDERABLES Fi nal Result Performing Organization Address City/[facility]/ZIP Co de Phone Number [facility] [address] [facility], Room [address] [place] [phone] * Adult Type and Screen (07/11/2024 4:15 PM CDT) Pathologist [facility] ABO/RH(D) A POS 07/11/2024 3:14 PM CDT [facility] Antibody Screen Negative Negative 07/11/2024 3:14 PM CDT [facility] Comment:Current antibody scr een is negative. Patient has a history of antibody(ies). A delay in compatible red blood cells may occur. SPECIMEN EXPIRATION DATE [id number] 07/11/2024 3:14 PM CDT [facility] Blood BLOOD SPECIMEN / Unknown Venipuncture / Unknown 07/11/2024 4:15 PM CDT 07/11/2024 4:29 PM CDT Ana Toney MD LAB - BLOOD BANK TEST ORD ER Final Result Performing Organization Address [facility] de Phone Number BLOOD BANK [address] [place] [phone] * (ABNORMAL) CBC with platelets and differential (07/11/2024 4:15 PM CDT) WBC Count 8.4 4.0 - 11.0 10e3/uL 07/11/2024 4:40 PM CDT [facility] RBC Count 3.43(L) 3.80 - 5.20 10e6/uL 07/11/2024 4:40 PM CDT [facility] Hemoglobin 10.7(L) 11.7 - 15.7 g/dL 07/11/2024 4:40 PM CDT [facility] Hematocrit 32.1(L) 35.0 - 47.0 % 07/11/2024 4:40 PM CDT [facility] MCV 94 78 - 100 fL 07/11/2024 4:40 PM CDT [facility] MCH 31.2 26.5 - 33.0 pg 07/11/2024 4:40 PM CDT [facility] MCHC 33.3 31.5 - 36.5 g/dL 07/11/2024 4:40 PM CDT [facility] RDW 16.9(H) 10.0 - 15.0 % 07/11/2024 4:40 PM CDT [facility] Platelet Count 320 150 - 450 10e3/uL 07/11/2024 4:40 PM CDT [facility] % Neutrophils 53 % 07/11/2024 4:40 PM CDT [facility] % Lymphocytes 32 % 07/11/2024 4:40 PM CDT [facility] % Monocytes 13 % 07/11/2024 4:40 PM CDT [facility] % Eosinophils 1 % 07/11/2024 4:40 PM CDT [facility] % Basophils 1 % 07/11/2024 4:40 PM CDT [facility] % Immature Granulocytes 0 % 07/11/2024 4:40 PM CDT [facility] NRBCs per 100 WBC 1(H) <1 /100 025 4:40 PM CDT [facility] Absolute Neutrophils 4.5 1.6 - 8.3 10e3/uL 07/11/2024 4:40 PM CDT [facility] Absolute Lymphocytes 2.7 0.8 - 5.3 10e3/uL 07/11/2024 4:40 PM CDT [facility] Absolute Monocytes 1.1 0.0 - 1.3 10e3/uL 07/11/2024 4:40 PM CDT [facility] Absolute Eosinophils 0.1 0.0 - 0.7 10e3/uL 07/11/2024 4:40 PM CDT [facility] Absolute Basophils 0.1 0.0 - 0.2 10e3/uL 07/11/2024 4:40 PM CDT [facility] Absolute Immature Granulocytes 0.0 <=0.4 10e3/uL 07/11/2024 4:40 PM CDT [facility] Absolute NRBCs 0.0 10e3/uL 07/11/2024 4:40 PM CDT [facility] Blood BLOOD SPECIMEN / Unknown Venipuncture / Unknown 07/11/2024 4:15 PM CDT 07/11/2024 4:30 PM CDT Ana oTney MD LAB - BLOOD ORDERABLES Fi nal Result [facility] [address] [facility], Room [address] [place] [phone] * (ABNORMAL) Comprehensive metabolic panel (07/11/2024 4:15 PM CDT) Sodium 137 135 - 145 mmol/L 07/11/2024 4:57 PM CDT [facility] Potassium 4.6 3.4 - 5.3 mmol/L 07/11/2024 4:57 PM CDT [facility] Carbon Dioxide (CO2) 19(L) 22 - 29 mmol/L 07/11/2024 4:57 PM CDT [facility] Anion Gap 13 7 - 15 mmol/L 07/11/2024 4:57 PM CDT [facility] Urea Nitrogen 7.9 6.0 - 20.0 mg/dL 07/11/2024 4:57 PM CDT [facility] Creatinine 0.63 0.51 - 0.95 mg/dL 07/11/2024 4:57 PM CDT [facility] GFR Estimate >90 >60 mL/min/1.7 3m2 07/11/2024 4:57 PM CDT [facility] Comment:eGFR calculated 2020 CKD-EPI equation. Calcium 9.4 8.8 - 10.4 mg/dL 07/11/2024 4:57 PM CDT [facility] Chloride 105 98 - 107 mmol/L 07/11/2024 4:57 PM CDT [facility] Glucose 108(H) 70 - 99 mg/dL 07/11/2024 4:57 PM CDT [facility] Alkaline Phosphatase 109 40 - 150 U/L 07/11/2024 4:57 PM CDT [facility] AST 43 0 - 45 U/L 07/11/2024 4:57 PM CDT [facility] ALT 34 0 - 50 U/L 07/11/2024 4:57 PM CDT [facility] Protein Total 8.1 6.4 - 8.3 g/dL 07/11/2024 4:57 PM CDT [facility] Albumin 4.4 3.5 - 5.2 g/dL 07/11/2024 4:57 PM CDT [facility] Bilirubin Total 1.4(H) <=1.2 mg/dL 07/11/2024 4:57 PM CDT [facility] Blood BLOOD SPECIMEN / Unknown Venipuncture / Unknown 07/11/2024 4:15 PM CDT 07/11/2024 4:30 PM CDT us Ana Toney MD LAB - BLOOD ORDERABLES Fi nal Result Performing Organization Address City/[facility]/ZIP Co de Phone Number LABORATORY [facility] [address] [facility], [address] * (ABNORMAL) INR (07/11/2024 4:15 PM CDT) INR 1.35(H) 0.85 - 1.15 07/11/2024 4:50 PM CDT [facility] Blood BLOOD SPECIMEN / Unknown Venipuncture / Unknown 07/11/2024 4:15 PM CDT 07/11/2024 4:31 PM CDT us Ana Toney MD LAB - BLOOD ORDERABLES Fi nal Result LABORATORY [facility] [address] [facility], [address] documented in this encounter Visit Diagnoses Diagnosis 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 documented in this encounter Administered Medications Inactive Administered Medications - up to 3 most recent administrations Medication Order MAR Action Action Date Dose Rate Site diphenhydrAMINE (BENADRYL) capsule 25 mg 25 mg, Oral, ONCE, On Wed07/11/24 at 1515, For 1 dose $Given 07/11/2024 4:22 PM CDT 25 mg heparin lock flush 100 unit/mL injection 5 mL 5 mL, Intravenous, ONCE, On Wed07/11/24 at 1920, For 1 dose $Given 07/11/2024 7:24 PM CDT 5 mLs hydromorphone (DILAUDID) injection 2 mg 2 mg, Subcutaneous, ONCE, On Wed07/11/24 at 1515, For 1 dose $Given 07/11/2024 4:22 PM CDT 2 mg hydromorphone (DILAUDID) injection 2 mg 2 mg, Intravenous, ONCE, On Wed07/11/24 at 1750, For 1 dose $Given 07/11/2024 5:52 PM CDT 2 mg hydromorphone (DILAUDID) injection 2 mg 2 mg, Intravenous, ONCE, On Wed07/11/24 at 1905, For 1 dose $Given 07/11/2024 7:07 PM CDT 2 mg lactated ringers BOLUS 500 mL Intravenous, 500 mL, ONCE, at 500 mL/hr, Administer over 1 Hours, On Wed07/11/24 at 1515, For 1 dose $New Bag 07/11/2024 4:29 PM CDT 500 mLs 500 mL/hr documented in this encounter Active and Recently Administered Medications Times are shown in CDT. Scheduled Medication Order 07/09/2024 07/10/2024 07/11/2024 diphenhydrAMINE (BENADRYL) capsule 25 mg (COMPLETED) 25 mg, Oral, ONCE, On Wed07/11/24 at 1515, For 1 dose 1621 ($Given - Provi nas: Darius Muse RN) heparin lock flush 100 unit/mL injection 5 mL (COMPLETED) 5 mL, Intravenous, ONCE, On Wed07/11/24 at 1920, For 1 dose 192 ($Given - Provi nas: Danica Mccloud RN) hydromorphone (DILAUDID) injection 2 mg (COMPLETED) 2 mg, Subcutaneous, ONCE, On Wed07/11/24 at 1515, For 1 dose 1622 ($Given - Provi nas: Darius Muse RN) hydromorphone (DILAUDID) injection 2 mg (COMPLETED) 2 mg, Intravenous, ONCE, On Wed07/11/24 at 1750, For 1 dose 1752 ($Given - Provi nas: Darius Muse RN) hydromorphone (DILAUDID) injection 2 mg (COMPLETED) 2 mg, Intravenous, ONCE, On Wed07/11/24 at 1905, For 1 dose 1907 ($Given - Provi nas: Darius Muse RN) lactated ringers BOLUS 500 mL (COMPLETED) Intravenous, 500 mL, ONCE, at 500 mL/hr, Administer over 1 Hours, On Wed07/11/24 at 1515, For 1 dose 1629 ($New Bag - Pro vider: Darius Muse RN)1742 (Stopped - Provider: Darius Muse RN) documented in this encounter Care Teams Fitter Hand Relationship Specialty Start Date End Date Veronica Joseph MD [address] [place] [address] PCP - General Family Medicine 06/18/24 Mor Ramsey Medical Student 04/03/24 Case Samuel MD [address] [place] [address], [address] [place] [address] Assigned Pediatric Specialist Provider 05/18/24 Juhi Benson, SOFIA Specialty [employer] Home [employer] Manager Hematology & Oncology 05/29/24 documented as of this encounter
--- OUTSIDE RECORDS SUMMARY | 2024-07-28 20:50 | XMS_ITS | Encounter Summary ---
Author Organization [employer] Address [address] [place] [address]. [place] [address] Care Team Providers Care Campground Caretaker Name Role Phone Roxy Mor Unavailable Unavailable Case Samuel MD Unavailable [phone] Juhi Benson RN Unavailable Unavailable Veronica Joseph MD Primary Care Provider [phone] Reason for Visit * Reason Comments Oncology Clinic Visit Sickle cell pain c risis Port Draw Labs drawn via port by RN in lab. 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 Gender Identity Not on file Sexual Orientation Not on file documented as of this encounter Last Filed Vital Signs Vital Sign Reading Time Taken Comments Blood Pressure 96/66 07/17/2024 1:24 PM CDT Pulse 89 07/17/2024 1:24 PM CDT Temperature 37.1 C (98.8 F) 07/17/2024 1:24 PM CDT Respiratory Rate 16 07/17/2024 1:24 PM CDT Oxygen Saturation 99% 07/17/2024 1:24 PM CDT Inhaled Oxygen Concentration - - Weight 50.8 kg (112 lb 1.6 oz) 07/17/2024 1:24 P M CDT Height - - Body Mass Index 21.18 07/16/2024 8:14 PM CDT documented in this encounter Progress Notes * Tatiana Cohen CNP - 07/17/2024 1:45 PM CDT Classical Hematology Follow Up Outpatient Visit (Sickle Cell Anemia) Date of visit: 07/17/2024 Gianna Hernández is a 29 year old female who is here for a 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 Interval History: Gianna was last seen in our outpatient hematology clinic 1 month ago on 05/[address] Samuel. She has been attempting to decrease her ED utilization over the past month or so. She recently received an exchange transfusion and has felt pretty good since then although notes 2 triggers that recently sent her to the ER, 1 was recently riding [employer] varinodeers at [employer] [facility] and the second was recent cold and windy weather yesterday. She reports increased sickle cell pain today and inquires about getting into the infusion center for IV fluids and IV pain medications. She started on fluoxetine 10 mg daily following her last outpatient visit. She took this for about a month and stopped her medications 2 weeks ago when she ran out. She denies any benefit from the medications and reports ongoing anxiety and some depressive symptoms. She denies any side effects fromthe medication and denies any signs of withdrawal after discontinuing. She would like to continue with pharmacologic management of her anxiety and is hopeful to find a dose or medication that works for her. Today she shared with me many aspects of her personal history including place that she has lived, her father's history and meeting her current boyfriend in [place]. As outlined in the HPI from her initial visit they then moved to [place] where she delivered her now 2-year-old daughter Chanda. It was only within the last year that they moved to [place] to be closer to her boyfriend's family with a goal of having increased care for their daughter. Gianna currently stays at home with her daughter. Her boyfriend works frequently. She anticipates that his grandmother will be returning from [place] where she spends the winter within the next few months and will be able to help with Chanda. Her daughter was recently sick with the flu although Gianna denies any recent viral illness or fever. 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 This appears to be consistent with her laboratory findings from the past, though we will confirm this. She said that she was born in [place] but moved throughout her childhood because her dad was in the . She is the youngest of 9 children she said, though she is the only one with sickle cell disease. Among other places, she was living in [place] for a time and then moved to [place]. It was there that shemet her boyfriend. She ultimately moved back to [place] and he came with her. It was there that they had a daughter Chanda, now 2 years old. That was a difficult for her, and she feelslike she never wants to be again. She was living in [place], [place] and receiving care at [facility], though she did not get the sense that greenskeeper supervisor there was super comfortable with sickle [...] about 3 weeks ago. She moved to [place] about 2 months ago. Her boyfriend is [...] them both so she can be a umey-np-ecei mom. Sickle Cell Disease Comprehensive Checklist Stroke/silent [...] titrate as needed and notify the primary greenskeeper supervisor via [employer] message if changes to the plan below are needed. Also please note that there is a mental health component to her pain, particularly in terms of adjustment to [place] which is likely to make her pain worse.. Plan last reviewed with patient: 07/17/2024 Patient background: 29 yo F, recently moved from [place] Sickle Cell Disease History Primary Cyber Forensics Analyst/ACCREDITATION MANAGER/PA: Lizzie Genotype: SS Acute Pain Crisis Treatment: [...] Concern Not on file Social History Narrative Aauh-ga-eiqm mom. Recently moved to [place] from [place], [place]. She is 1 of 9 [...] Social Connections: Socially Integrated (03/28/2024) Received from [facility] Social Connections Do you often feel [...] mg) by mouth daily. 40 capsule 1 FLUoxetine (PROZAC) 20 MG capsule Take 1 capsule (20 mg) by mouth daily. 30 capsule 1 folic acid (FOLVITE) 1 MG tablet Take 1 tablet (1 mg) by mouth daily. 30 tablet 11 HYDROmorphone (DILAUDID) 2 MG tablet Take 1-2 tablets (2-4 mg) by mouth every 6 hours as needed forsevere pain. 45 tablet 0 hydroxyurea (HYDREA) 500 MG capsule Take 2 capsules (1,000 mg) by mouth 2 times daily 120 capsule 11 ibuprofen (ADVIL/MOTRIN) 200 MG tablet Take 200 mg by mouth every 6 hours as needed for pain. multivitamin, therapeutic (THERA-VIT) TABS tablet Take 1 tablet by mouth daily. 30 tablet 11 naloxone (NARCAN) 4 MG/0.1ML nasal spray [place] 1 spray (4 mg) into one nostril alternating nostrilsas needed for opioid reversal (for opiate overdose if not breathing and unconscious. have your family member watch video on how to use/read information sheet). every 2-3 minutes until assistance arrives 2 each 0 No current facility-administered medications for this visit. Physical Exam: BP 96/66 Pulse 89 Temp 98.8 ??F (37.1 ??C) (Oral) Resp 16 Wt 50.8 kg (112 lb 1.6 oz) LMP 07/10/2024 (Exact Date) SpO2 99% BMI 21.18 kg/m?? GENERAL APPEARANCE: healthy, alert and no distress, smiling, conversant EYES: Eyes grossly normal to inspection, PERRL and conjunctivae and sclerae normal, extraocular movements intact HENT: oropharynx clear and oral mucous membranes moist, dentition is of concern with discoloration to visible teeth RESP: normal respiratory effort on RA SKIN: no suspicious lesions or rashes NEURO: Normal strength and tone, sensory exam grossly normal, mentation intact and speech normal Labs: Most Recent 3 CBC's: Recent Labs Lab Test 07/17/24 1338 07/16/24215607/13/24 2321 WBC 8.7 10.9 13.1* HGB 9.3* 10.1* 9.6* MCV 92 96 97 PLT 451* 529* 351 ANEUTAUTO 5.2 7.3 6.5 Most Recent 3 BMP's: Recent Labs Lab Test 07/17/24 1338 07/16/24215607/13/24 2321 07/11/24 1615 NA 137 140 136 137 POTASSIUM 4.5 4.0 4.0 4.6 CHLORIDE 108* 108* 104 105 CO2 21* 18* 22 19* BUN 8.4 9.7 6.8 7.9 CR 0.67 0.60 0.67 0.63 ANIONGAP 8 14 10 13 EVELIN 9.1 9.6 8.9 9.4 GLC 96 97 110* 108* PROTTOTAL -- 8.5* 7.6 8.1 ALBUMIN -- 4.6 4.2 4.4 Most Recent 2 LFT's: Recent Labs Lab Test 07/16/24215607/13/24 2321 AST 43 36 ALT 37 22 ALKPHOS 113 91 BILITOTAL 2.0* 1.4* Most Recent TSH and T4:No lab results found. Phos/Mag: Lab Results Component Value Date MAG 2.1 06/24/2024 Lab Results Component Value Date RETP 5.7 (H) 07/16/2024 Assessment: Gianna Hernández is a 29 year old female who recently started receiving care at [facility] for sickle cell disease, HbSS (Apr 2024). She has several comorbidities related to sickle cell disease, including chronic pain, AVN of the left hip, history of pulmonary embolism, history of transfusions with iron overload, history of stroke(details unclear), right eye retinopathy, acute on chronic anemia, gallstones, and a history of ACS. She has regularly been seeking care in the emergency department for pain control, initially at [facility] and more recently at the [facility]. today we discussed the contribution of her anxiety and psychosocial concerns to her pain frequency. She does feel that the anxiety contributes quite significantly to pain. She is working on increased awareness of this and did trial fluoxetine 10 mg daily although did not find symptomatic benefit with this. She is willing to try adjustments in her medication and feels she probably needs a higher which I agree with. Although she voices satisfaction withbeing able to be a jjed-rs-nfwt mom and care for her daughter she acknowledges that this can be anxiety provoking and is looking forward to receiving additional assistance from her boyfriend's familymembers in the next few months. Due to time constraints during her visit today and to prioritize relationship building we will primarily again focused on her mental health needs and psychosocial aspects of her care. She is agreeable to close outpatient follow-up and has so far been engaged with our clinic since establishing care in April. I will plan to see her for ongoing monthly visits and lab monitoring. We will plan to further address routine health maintenance over the next few months to ensure her health needs are up-to-date. Mental health After discussing risks and benefits of SSRIs with Dr. Samuel she began fluoxetine 10 mg daily in early May without significant benefit. -Increase fluoxetine to 20 mg daily -Reassess effectiveness in 1 month on return HbSS Disease with several complications listed below -Labs: Stable today, CBC with differential, reticulocyte, CMP on return -Attempts to utilize the infusion clinic appropriately and when necessary. Will receive IV fluids and pain medication today -Dilaudid dosing capped at 40 tablets/week with a goal to work our way back down -Further goals would be decreasing ED visit frequency although we expect this to be a slow process and want to focus on trust building throughout the hematology team in an effort to avoid setbacks Acute on chronic anemia plus stroke hx -Continue monthly exchange transfusions -Stroke are unclear-need head MRI for evaluation (ordered by not scheduled--will request again today) -s/p bilateral port placement 05/25/24 (apheresis on R, smart port on L) History of gallstones and intermittent cholecystitis -Likely approaching cholecystectomy before transitioning care to [place] -No recent biliary colic -GI referral for ongoing management. History of left hip AVN with hairline fracture -Documentation dating back to at least 2020 describing findings -Continued ambulation as able to keep the muscles around the hip and femur strong. -Orthopedic supervisor safety deposit referral previously placed -Severity is unclear-has been several years since eye exam -Ophthalmology referral placed Healthcare maintenance -Will need to get full series of PPSV23, Men B, and Men ACWY booster-deferred to next visit -Already has PCP close to home. Follow up plan: monthly with TIFFANY/MD Tatiana Cohen CNP --- 86 minutes spent on the date of the encounter doing chart review, review of test results, interpretation of tests, patient visit, and documentation. The longitudinal plan of care for the diagnosis(es)/condition(s) as documented were addressed during this visit. Due to the added complexity in care, I will continue to support Gianna in the subsequent management and with ongoing continuity of care. documented in this encounter Nursing Notes * Susanne Sheffield RN - 07/17/2024 1:45 PM CDT Chief Complaint Patient presents with Oncology Clinic Visit Sickle cell pain crisis Port Draw Labs drawn via port by RN in lab. VS taken Port accessed with 20 gauge 3/4 Power needle by RN, labs collected, line flushed with saline and heparin. Vitals taken. Pt checked in for appointment(s). Susanne Sheffield RN * Tyson Parmar - 07/17/2024 1:45 PM CDT Oncology Rooming Note July 17, 2024 1:43 PM Gianna Hernández is a 29 year old female who presents for: Chief Complaint Patient presents with Oncology Clinic Visit Sickle cell pain crisis Port Draw Labs drawn via port by RN in lab. VS taken Initial Vitals: BP 96/66 Pulse 89 Temp 98.8 ??F (37.1 ??C) (Oral) Resp 16 Wt 50.8 kg (112 lb 1.6 oz) LMP 07/10/2024 (Exact Date) SpO2 99% BMI 21.18 kg/m?? Estimated body mass index is 21.18 kg/m?? as calculated from the following: Height as of 07/16/24: 1.549 m (5' 1). Weight as of this encounter: 50.8 kg (112 lb 1.6 oz). Body surface area is 1.48 meters squared. Severe Pain (7) Comment: Data Unavailable Patient's last menstrual period was 07/10/2024 (exact date). Allergies reviewed: Yes Medications reviewed: Yes Medications: MEDICATION REFILLS NEEDED TODAY. Provider was notified. Pharmacy name entered into [employer]: [facility] [address] [place], [place] - [phone] - [address] Frailty Screening: Is the patient here for a new oncology consult visit in cancer care? 2. No PHQ9: Did this patient require a PHQ9?: No Clinical concerns: pt needs dilaudid refilled, pt is out of the prozac, and would like to review how it has worked and either needs refill or new higher dose. Pt is also still feeling anxious, so if other options are available, is curious about those as well. Tyson Parmar documented in this encounter Plan of Treatment Upcoming Encounters Date Type Department Care Team (Late st Contact Info) Description 08/07/2024 7:15 AM CDT [facility] [address] [place] [phone] Case Samuel MD [address] [facility] [address] [place] [address] 08/08/2024 8:00 AM CDT Appointment [facility] Advanced Treatment [address] [phone] Case Samuel MD [address] [facility] [address] [place] [address] 10/30/2024 11:30 AM CDT Lab [facility] [address] [phone] Case Samuel MD [address] [place] [address], [address] [place] [address] 10/30/2024 12:00 PM CDT Oncology Visit [facility] [address] [phone] Case Samuel MD [address] [place] [address], [address] [place] [address] documented as of this encounter Goals Goal [...] Diagnosis Comments RBC AND PLATELET MORPHOLOGY Routine 07/17/2024 1:38 PM CDT Sickle cell pain crisis (H) CBC WITH PLATELETS AND DIFFERENTIAL Routine 07/17/2024 1:38 PM CDT Sickle cell pain crisis (H) CBC WITH PLATELETS & DIFFERENTIAL Routine 07/17/2024 1:38 PM CDT Sickle cell pain crisis (H) BASIC METABOLIC PANEL Routine 07/17/2024 1:38 PM CDT Sickle cell pain crisis (H) documented in this encounter Results * (ABNORMAL) RBC and Platelet Morphology (07/17/2024 1:38 PM CDT) Pathologist [facility] RBC Morphology Confirmed RBC Indices 07/17/2024 2:31 PM CDT [facility] Platelet Assessment Automated Count Confirmed. Platelet morphology is normal. Automated Count Confirmed. Platelet morphology is normal. 07/17/2024 2:31 PM CDT [facility] Elliptocytes Slight(A) None Seen 07/17/2024 2:31 PM CDT [facility] [place] Bodies Present(A) None Seen 07/17/2024 2:31 PM CDT [facility] Target Cells Slight(A) None Seen 07/17/2024 2:31 PM CDT [facility] Blood VENOUS LINE / Unknown IVAD (Port) / Unknown 07/17/2024 1:38 PM CDT 07/17/2024 1:43 PM CDT us Case Samuel MD LAB - BLOOD ORDERABLES Fi nal Result [facility] [place] [address] [facility] 1st [place] [address] * (ABNORMAL) CBC with platelets and differential (07/17/2024 1:38 PM CDT) Pathologist [facility] WBC Count 8.7 4.0 - 11.0 10e3/uL 07/17/2024 2:31 PM CDT [facility] RBC Count 2.96(L) 3.80 - 5.20 10e6/uL 07/17/2024 2:31 PM CDT [facility] Hemoglobin 9.3(L) 11.7 - 15.7 g/dL 07/17/2024 2:31 PM CDT [facility] Hematocrit 27.3(L) 35.0 - 47.0 % 07/17/2024 2:31 PM CDT [facility] MCV 92 78 - 100 fL 07/17/2024 2:31 PM CDT [facility] MCH 31.4 26.5 - 33.0 pg 07/17/2024 2:31 PM CDT [facility] MCHC 34.1 31.5 - 36.5 g/dL 07/17/2024 2:31 PM CDT [facility] RDW 15.9(H) 10.0 - 15.0 % 07/17/2024 2:31 PM CDT [facility] Platelet Count 451(H) 150 - 450 10e3/uL 07/17/2024 2:31 PM CDT [facility] % Neutrophils 60 % 07/17/2024 2:31 PM CDT [facility] % Lymphocytes 17 % 07/17/2024 2:31 PM CDT [facility] % Monocytes 20 % 07/17/2024 2:31 PM CDT [facility] % Eosinophils 1 % 07/17/2024 2:31 PM CDT [facility] % Basophils 1 % 07/17/2024 2:31 PM CDT [facility] % Immature Granulocytes 1 % 07/17/2024 2:31 PM CDT [facility] NRBCs per 100 WBC 0 <1 /100 025 2:31 PM CDT [facility] Absolute Neutrophils 5.2 1.6 - 8.3 10e3/uL 07/17/2024 2:31 PM CDT [facility] Absolute Lymphocytes 1.5 0.8 - 5.3 10e3/uL 07/17/2024 2:31 PM CDT [facility] Absolute Monocytes 1.7(H) 0.0 - 1.3 10e3/uL 07/17/2024 2:31 PM CDT [facility] Absolute Eosinophils 0.1 0.0 - 0.7 10e3/uL 07/17/2024 2:31 PM CDT [facility] Absolute Basophils 0.1 0.0 - 0.2 10e3/uL 07/17/2024 2:31 PM CDT [facility] Absolute Immature Granulocytes 0.0 <=0.4 10e3/uL 07/17/2024 2:31 PM CDT [facility] Absolute NRBCs 0.0 10e3/uL 07/17/2024 2:31 PM CDT [facility] Blood VENOUS LINE / Unknown IVAD (Port) / Unknown 07/17/2024 1:38 PM CDT 07/17/2024 1:43 PM CDT us Case Samuel MD LAB - BLOOD ORDERABLES Fi nal Result [facility] [address] [place] [address] 1st [place] [address] * (ABNORMAL) Basic metabolic panel (07/17/2024 1:38 PM CDT) Sodium 137 135 - 145 mmol/L 07/17/2024 2:16 PM CDT [facility] Potassium 4.5 3.4 - 5.3 mmol/L 07/17/2024 2:16 PM CDT [facility] Chloride 108(H) 98 - 107 mmol/L 07/17/2024 2:16 PM CDT [facility] Carbon Dioxide (CO2) 21(L) 22 - 29 mmol/L 07/17/2024 2:16 PM CDT [facility] Anion Gap 8 7 - 15 mmol/L 07/17/2024 2:16 PM CDT [facility] Urea Nitrogen 8.4 6.0 - 20.0 mg/dL 07/17/2024 2:16 PM CDT [facility] Creatinine 0.67 0.51 - 0.95 mg/dL 07/17/2024 2:16 PM CDT [facility] GFR Estimate >90 >60 mL/min/1.7 3m2 07/17/2024 2:16 PM CDT [facility] Comment:eGFR calculated usin 2020 CKD-EPI equation. Calcium 9.1 8.8 - 10.4 mg/dL 07/17/2024 2:16 PM CDT [facility] Glucose 96 70 - 99 mg/dL 07/17/2024 2:16 PM CDT [facility] Blood VENOUS LINE / Unknown IVAD (Port) / Unknown 07/17/2024 1:38 PM CDT 07/17/2024 1:43 PM CDT us Case Samuel MD LAB - BLOOD ORDERABLES Fi nal Result [facility] [place] [address] [facility] 1st [place] [address] documented in this encounter Visit Diagnoses Diagnosis 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 Severe episode of recurrent major depressive disorder, without psychotic features (H) documented in this encounter Administered Medications Inactive Administered Medications - up to 3 most recent administrations Medication Order MAR Action Action Date Dose Rate Site heparin lock flush 100 unit/mL injection 500 Units 500 Units, Intracatheter, ONCE, On Wed07/17/24 at 1345, For 1 dose $Given 07/17/2024 1:40 PM CDT 500 Units saline flush for lab use ONLY 20 mL, Intracatheter, ONCE, On Wed07/17/24 at 1345, For 1 dose $Given 07/17/2024 1:40 PM CDT 20 mLs documented in this encounter Care Teams Campground Caretaker Relationship Specialty Start Date End Date Veronica Joseph MD [address] [place] [address] PCP - General Family Medicine 06/18/24 oMr [employer] Medical Student 04/03/24 Case Samuel MD [address] [place] [address] [address], [address] [place], [place] [phone] Assigned Pediatric Specialist Provider 05/18/24 Juhi Benson, RN Specialty Laborer [employer] Hematology & Oncology 05/29/24 documented as of this encounter
--- OUTSIDE RECORDS SUMMARY | 2024-07-28 20:50 | XMS_ITS | Encounter Summary ---
Author Organization [place] Address [address] [place] [address]. 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 Gender Identity Not on file Sexual Orientation Not on file documented as of this encounter Plan of Treatment Upcoming Encounters Date Type Department Care Team (Late st Contact Info) Description 08/07/2024 7:15 AM CDT Lab [facility] [address] [phone] Case Samuel MD [address] [place] [address], [address] [address] 08/08/2024 8:00 AM CDT Appointment [facility] Advanced Treatment [address] [phone] Case Samuel MD [address] [place] [address], [address] [address] 10/30/2024 11:30 AM CDT Lab [facility] [address] [phone] Case Samuel MD [address] [place] [address], [address] [address] 10/30/2024 12:00 PM CDT Oncology Visit [facility] [address] [phone] Case Samuel MD [address] [facility] 484, [address] [place] [address] documented as of this encounter Goals Goal [...] on filedocumented in this encounter Care Teams Retail Asset Protection Specialist Relationship Specialty Start Date End Date Veronica Joseph MD [address] [place] [address] PCP - General Family Medicine 06/18/24 Mor Ramsey Medical Student 04/03/24 Case Samuel MD [address] [facility] 484, [address] [place] [address] Assigned Pediatric Specialist Provider 05/18/24 Juhi Benson, RN Specialty Hospital Scientist Hematology & Oncology 05/29/24 documented as of this encounter
[2024-07-28 20:55] VITALS: RESP 16
--- OUTSIDE RECORDS SUMMARY | 2024-07-28 21:33 | XMS_ITS | Encounter Summary ---
Author Organization [place] Address [address] [place] [address]. [place] [address] Care Team Providers Care Counterintelligence Agent Name Role Phone Roxy Mor Unavailable Unavailable Case Samuel MD Unavailable [phone] Juhi Benson RN Unavailable Unavailable Veronica Joseph MD Primary Care Provider [phone] Reason for Visit * Reason Comments Infusion IVF/Pain Medications Encounter Details Date Type Department Care Team (Late st Contact Info) Description 07/17/2024 2:30 PM CDT Infusion Therapy Visit 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 If you need any refills on medications (narcotics or other medications), please call before your infusion appointment. documented in this encounter Progress Notes * Kiki Williamson, RN - 07/17/2024 2:30 PM CDT Infusion Nursing Note: Gianna Hernández presents today for IVF/Pain Medications. Patient seen by provider today: Tatiana Cohen, PHARMACY TECHNOLOGY INSTRUCTOR Rheumatology Specialist present during visit today: Not Applicable Note: [...] all questions answered. AVS to patient via [employer]. No future appointments currently scheduled. Patient discharged in stable condition accompanied by: self. Departure Mode: Ambulatory. Kiki Williamson, RN documented in this encounter Plan of Treatment Upcoming Encounters Date Type Department Care Team (Late st Contact Info) Description 08/07/2024 7:[address] [facility] [address] [place] [phone] Case Samuel MD [address] [place] [address], [address] [place], [place] [address] 08/08/2024 8:00 AM CDT Appointment [facility] [address] [place] [phone] Case Samuel MD [address] [place] [address], [address] [place], [place] [address] 10/30/2024 11:[address] [facility] [address] [place] [phone] Case Samuel MD [address] [place] [address], [address] [place] [address] 10/30/2024 12:00 PM CDT Oncology Visit [facility] [address] [place] [phone] Case Samuel MD [address] [facility] 484, [address] [place], [place] [address] documented as of this encounter Goals Goal [...] mLs documented in this encounter Care Teams Counterintelligence Agent Relationship Specialty Start Date End Date Veronica Joseph MD [address] [place] [address] PCP - General Family Medicine 06/18/24 Mor Ramsey Medical Student 04/03/24 Case Samuel MD [address] [facility] 484, [address] [place] [address] Assigned Pediatric Specialist Provider 05/18/24 Juhi Benson, RN Specialty Outside Installation Machinist Hematology & Oncology 05/29/24 documented as of this encounter
--- OUTSIDE RECORDS SUMMARY | 2024-07-28 21:33 | XMS_ITS | Encounter Summary ---
Author Organization [place] Address [address] [place] [address]. [place] [address] Care Team Providers Care Supervisor Policy Change Clerks Name Role Phone Roxy Mor Unavailable Unavailable Case Samuel MD Unavailable [phone] Juhi Benson RN Unavailable Unavailable Veronica Joseph MD Primary Care Provider [phone] Reason for Visit * Reason Onset Date Comments Refill Request 07/18/2024 Encounter Details Date Type Department Care Team (Late st Contact Info) Description 07/18/2024 Refill [facility] [address] [place] [phone] Tatiana Cohen CNP [address] [address] Refill Request Social History Tobacco [...] on file 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 Samuel ENGINE REPAIRER PRODUCTION Reviewed: No access Routed/Paged provider: Tatiana Cohen CNP documented in this encounter Plan of Treatment Upcoming Encounters Date Type Department Care Team (Late st Contact Info) Description 08/07/2024 7:15 AM CDT Lab [facility] [address] [phone] Case Samuel MD [address] [place] [address], [address] [address] 08/08/2024 8:00 AM CDT Appointment [facility] Advanced Treatment [address] [phone] Case Samuel MD [address] [place] [address], [address] [address] 10/30/2024 11:30 AM CDT Lab [facility] [address] [phone] Case Samuel MD [address] [place], [place] [address], [address] [address] 10/30/2024 12:00 PM CDT Oncology Visit [facility] [address] [phone] Case Samuel MD [address] [place] [address], [address] [address] documented as of this encounter Goals Goal [...] documented in this encounter Care Teams Supervisor Policy Change Clerks Relationship Specialty Start Date End Date Veronica Joseph MD [address] [place] [address] PCP - General Family Medicine 06/18/24 Mor Ramsey Medical Student 04/03/24 Case Samuel MD [address] [place] [address], [address] [place] [address] Assigned Pediatric Specialist Provider 05/18/24 Juhi Benson, RN Specialty Manager Clinical Applications Hematology & Oncology 05/29/24 documented as of this encounter
--- OUTSIDE RECORDS SUMMARY | 2024-07-28 21:34 | XMS_ITS | Encounter Summary ---
Author Organization [facility] Address [address] [place] [address] Care Team Providers Care Perch Machine Inspector Name Role Phone None Reported, Pcp Primary [...] CDT - 07/22/2024 4:44 PM CDT Emergency [facility] [address] [place] [phone] Jori Malcolm M.D. [address] [phone] Sickle Cell Disease (HCC) (Primary Dx) Discharge [...] Everywhere. * Living With Sickle Cell Disease (Mexican) documented in this encounter Medications at [...] is the patient's 1st visit to a [facility] facility. [facility] care with [facility] quality [facility]. She has a unique treatment plan outlined in these notes, this was provided by her quality internship. She most recently moved here from [place]. She is in the area as she was visiting her boyfriend's parents and pain became gradually worse. She has been taking her p.o. Dilaudid without relief. I am able to review her visits at an outside emergency department [facility]-on 07/20/2024, 07/19/2024, 07/18/2024, 07/16/2024, 07/13/2024, 07/11/2024, 07/10/2024, [...] plan in place outline reviewable from the [facility] hematology department. She presents to the emergency [...] ED visits for similar presentations-typically at the [facility]. Recently had EKG, chest x-ray, comprehensive labs [...] 1 dose 1412 (Given - Provid er: Diixe Mckay) HYDROmorphone injection 2 mg (Dilaudid) (COMPLETED) [...] 1405 documented in this encounter Care Teams Perch Machine Inspector Relationship Specialty Start Date End Date None Reported, Pcp PCP - General Family Medicine 07/22/24 documented as of this encounter
--- OUTSIDE RECORDS SUMMARY | 2024-07-28 21:34 | XMS_ITS | Clinical Summary ---
Author Organization [facility] Address [address] [place] [address] Care Team Providers Care Agricultural Crop Farm Manager Name Role Phone None Reported, Pcp Primary Care Provider Unavail able Source Comments Patient records contain information from all sites at [facility]. For routine questions regarding patient records, call [phone] during business hours, M-F 8:00 AM - 5:00 PM Central Time. Record requests for emergency care only can be directed to [phone] at any time.[facility] Allergies Active Allergy Reactions Criticality Noted Date [...] CDT - 07/24/2024 4:36 AM CDT Emergency [place] [address] [phone] Noel Luo M.D. Hb-SS Disease (Sickle Cell) Vaso-Occlusive Pain Crisis (HCC) (Primary Dx) Discharge Disposition: Home or Self Care 07/22/2024 1:40 PM CDT - 07/22/2024 4:44 PM CDT Emergency [facility] [address] [place] [phone] Jori Malcolm M.D. Sickle Cell Disease [...] M.D. LAB BLOOD ADD-ON Final Resu lt [facility] [address] [place] [address], [facility] [place] [address] [phone] * (ABNORMAL) CBC with Differential, Blood (07/23/2024 11:25 PM CDT) Pathologist [facility] Department Hemoglobin 8.1(L) 11.6 - 15.0 g/dL 07/23/2024 [...] M.D. LAB BLOOD ADD-ON Final Resu lt [facility] [address] [place] [address], [place] [facility] [place] [address] [place] [address] * (ABNORMAL) Basic Metabolic Panel (07/23/2024 11:25 [...] M.D. LAB BLOOD ADD-ON Final Resu lt [facility] [address] [place] [address], [facility] [place] [address] [place] [address] from Last 3 Months Insurance [place] [id number] [facility] Care Teams Agricultural Crop Farm Manager Relationship Specialty Start Date End Date None Reported, Pcp PCP - General Family Medicine 07/22/24
--- OUTSIDE RECORDS SUMMARY | 2024-07-28 21:34 | XMS_ITS | Clinical Summary ---
Author Organization [facility] Address [address] [place] [address] Care Team Providers Care Remedial Reading Teacher Name Role Phone Veronica Joseph MD Primary Care Provider [phone] Allergies Active Allergy Reactions Criticality Noted Date [...] ickle cell pain crisis (HC) Inhale 1 Seymour into affected nostril(s) each time if needed [...] for Pain. 10 Tablet 5 2:58 PM SWITCH REPAIRER 04/27/19 25 Active folic acid 1 mg tablet Take 1 tablet (1 mg) by mouth daily. 30 Tablet 5 1:41 PM SWITCH REPAIRER 05/01/19 25 Active hydroxyurea (HYDREA) 500 mg capsule Take 2 capsules (1,000 mg) by mouth 2 times daily 120 Capsule 05/01/19 25 Active multivitamin with folic acid 0.4 mg (Thera) Take 1 tablet by mouth daily. 30 Tablet 11 5 10:39 AM SWITCH REPAIRER 05/01/19 25 Active amoxicillin-clavul anate (AUGMENTIN) 875-125 mg tablet Take 1 tablet by mouth 2 times daily for 7 days. 14 Tablet 5 10:39 AM SWITCH REPAIRER 05/08/19 25 Active doxycycline hyclate 100 mg capsule Take 1 capsule (100 mg) by mouth 2 times daily for 7 days. 14 Capsule 5 10:39 AM SWITCH REPAIRER 05/08/19 25 Active HYDROmorphone 4 mg tablet Take 1 Tablet (4 mg) by mouth every 6 hours if needed for severe pain. 30 Tablet 5 1:04 PM SWITCH REPAIRER 05/09/19 25 Active FLUoxetine (PROZAC) 10 mg capsule Take 1 capsule (10 mg) by mouth daily. 40 Capsule 1 5 3:26 PM SWITCH REPAIRER 05/29/19 25 Active naloxone (NARCAN) 4 mg/actuation nasal spray Seymour 1 spray (4 mg) into one nostril [...] times daily. 178 Tablet 5 3:59 PM SWITCH REPAIRER 06/30/19 25 025 Active HYDROmorphone 2 mg [...] severe pain. 40 Tablet 5 11:11 AM SWITCH REPAIRER 06/15/19 25 025 Discontin ued(Reord er (E-cancel not sent)) HYDROmorphone 2 mg tablet Take 2 tablets (4 mg) by mouth every 6 hours as needed for severe pain. 40 Tablet 5 3:59 PM SWITCH REPAIRER 06/30/19 25 025 Discontin ued(Reord er (E-cancel [...] Department Care Team Description 06/11/2024 1:08 AM SWITCH REPAIRER - 06/11/2024 3:[address] [address] Juan Kunz, Sickle cell pain crisis (HC) (Primary Dx) Discharge Disposition: Home Self Care 06/11/2024 Travel 06/06/2024 Refill [facility] [address] [place] [address] Veronica Joseph MD Refill Request 06/03/2024 11:37 AM SWITCH REPAIRER - 06/03/2024 2:[address] [address] Ben Swan MD Viral syndrome (Primary Dx) Discharge Disposition: Home Self Care 06/03/2024 Travel 05/29/2024 1:53 PM SWITCH REPAIRER - 05/29/2024 2:[address] [address] Ana Pacheco MD Sickle cell pain crisis (HC) (Primary Dx) Discharge Disposition: Home Self Care 05/29/2024 Travel 05/21/2024 10:35 AM SWITCH REPAIRER - 05/21/2024 2:[address] [address] Juliana Gil, Sickle cell disease with crisis (HC) (Primary Dx); Diffuse pain Discharge Disposition: Home Self Care 05/21/2024 Travel 05/18/2024 2:12 AM SWITCH REPAIRER - 05/18/2024 4:[address] [address] Onesimo Gaviria MD Sickle cell pain crisis (HC) (Primary Dx) Discharge Disposition: Home Self Care 05/18/2024 Travel 05/17/2024 Telephone [facility] [address] [place] [address] Veronica Joseph MD Questions (HEALTH STATUS ) 05/10/2024 Telephone [facility] [address] [place] [address] Veronica Joseph MD Follow Up 05/07/2024 5:53 PM SWITCH REPAIRER - 05/07/2024 8:[address] [address] Caryn Downs MD Sickle cell anemia with pain (HC) (Primary Dx); RUQ abdominal pain Discharge Disposition: Home Self Care 05/07/2024 Travel 05/03/2024 10:59 PM SWITCH REPAIRER - 05/04/2024 2:[address] [address] Anika Mccracken MD Discharge Disposition: Home Self Care 05/03/2024 Travel 05/02/2024 10:15 AM SWITCH REPAIRER - 05/02/2024 12:[address] [address] Juan Kunz DO Sickle cell pain crisis [...] on file Legal Sex Female 8:18 PM SWITCH REPAIRER Gender Identity Not on file Sexual Orientation Not on file Obstetrics History Last Filed Vital Signs Vital Sign Reading Time Taken Comments Blood Pressure 121/73 06/11/2024 3:30 AM SWITCH REPAIRER Pulse 93 06/11/2024 3:30 AM SWITCH REPAIRER Temperature 36.6 C (97.9 F) 06/11/2024 1:12 AM SWITCH REPAIRER Respiratory Rate 18 06/11/2024 3:00 AM SWITCH REPAIRER Oxygen Saturation 95% 06/11/2024 3:30 AM SWITCH REPAIRER Inhaled Oxygen Concentration - - Weight 51.7 kg (114 lb) 06/11/2024 1:10 AM SWITCH REPAIRER Height 154.9 cm (5' 1) 06/11/2024 1:10 AM SWITCH REPAIRER Body Mass Index 21.54 06/11/2024 1:10 AM SWITCH REPAIRER Plan of Treatment Health Maintenance Due Date [...] WITH AUTO DIFFERENTIAL STAT 06/03/2024 12:51 PM SWITCH REPAIRER INFLUENZA A/B PCR Today 06/03/2024 12: 51 PM SWITCH REPAIRER COVID-19 MOLECULAR Today 06/03/2024 12 :51 PM SWITCH REPAIRER BASIC METABOLIC PANEL STAT 06/03/2024 12:51 PM SWITCH REPAIRER CBC WITH AUTO DIFFERENTIAL STAT 06/03/2024 12:51 PM SWITCH REPAIRER XR CHEST 2 VIEWS PA AND LATERAL STAT 06/03/2024 12:34 PM SWITCH REPAIRER EKG 12 LEAD STAT 06/03/2024 11:48 AM SWITCH REPAIRER HEMOGLOBIN STAT 05/29/2024 2:23 PM SWITCH REPAIRER EKG 12 LEAD STAT 05/29/2024 2:03 PM SWITCH REPAIRER EKG 12 LEAD STAT 05/21/2024 10:19 AM SWITCH REPAIRER RED CELL MORPHOLOGY STAT 05/07/2024 6 :20 PM SWITCH REPAIRER PLATELET ESTIMATE STAT 05/07/2024 6:2 0 PM SWITCH REPAIRER RETICULOCYTES STAT 05/07/2024 6:20 PM SWITCH REPAIRER LIPASE STAT 05/07/2024 6:20 PM SWITCH REPAIRER HEPATIC FUNCTION PANEL STAT 6:20 PM SWITCH REPAIRER BASIC METABOLIC PANEL STAT 05/07/2024 6:20 PM SWITCH REPAIRER CBC W PLT NO DIFF STAT 05/07/2024 6:2 [address] CHEST PE STUDY STAT 05/04/2024 1:4 6 AM SWITCH REPAIRER RETICULOCYTES STAT 05/04/2024 12:24 AM SWITCH REPAIRER URINE Today 05/04/2024 12:07 AM SWITCH REPAIRER UA W/ SEDIMENT EXAM REFLEXED PER CRITERIA Today 05/04/2024 12:07 AM SWITCH REPAIRER CWS PATH REVIEW HEMATOLOGY STAT 05/03/2024 11:52 PM SWITCH REPAIRER RED CELL MORPHOLOGY STAT 05/03/2024 1 1:52 PM SWITCH REPAIRER PLATELET ESTIMATE STAT 05/03/2024 11: 52 PM SWITCH REPAIRER MANUAL DIFFERENTIAL STAT 05/03/2024 1 1:52 PM SWITCH REPAIRER CBC WITH AUTO DIFFERENTIAL STAT 05/03/2024 11:52 PM SWITCH REPAIRER D-DIMER,QUANTITATIVE STAT 05/03/2024 11:52 PM SWITCH REPAIRER HEPATIC FUNCTION PANEL STAT 11:52 PM SWITCH REPAIRER BASIC METABOLIC PANEL STAT 05/03/2024 11:52 PM SWITCH REPAIRER CBC WITH AUTO DIFFERENTIAL STAT 05/03/2024 11:52 PM SWITCH REPAIRER EKG 12 LEAD STAT 05/03/2024 11:48 PM SWITCH REPAIRER INFLUENZA A/B PCR Today 05/02/2024 10: 20 AM SWITCH REPAIRER COVID-19 MOLECULAR Today 05/02/2024 10 :20 AM SWITCH REPAIRER from Last 3 Months Results * COVID-19 MOLECULAR (06/03/2024 12:51 PM SWITCH REPAIRER) Only the most recent of2 resultswithin the time period is included. Pathologist [address] MOLECULAR Not detected Not detected 06/03/2024 1:18 PM SWITCH REPAIRER [facility] 06/03/2024 1:18 PM SWITCH REPAIRER [facility] Comment:Specimen submitted t o [facility] for testing. Other SPECIMEN FROM NASOPHARYNGEAL STRUCTURE / Unknown Non-Blood / Unknown 06/03/2024 12:51 PM SWITCH REPAIRER 06/03/2024 12:54 PM SWITCH REPAIRER us Ben Swan MD MICROBIOLOGY Final Res ult [facility] [place] [address], * INFLUENZA A/B PCR (06/03/2024 12:51 PM SWITCH REPAIRER) Only the most recent of2 resultswithin the time period is included. Pathologist [facility] INFLUENZA A PCR NOT Detected 06/03/2024 1:18 PM SWITCH REPAIRER [facility] INFLUENZA B PCR NOT Detected 06/03/2024 1:18 PM SWITCH REPAIRER [facility] Other SPECIMEN FROM NASOPHARYNGEAL STRUCTURE / Unknown Non-Blood / Unknown 06/03/2024 12:51 PM SWITCH REPAIRER 06/03/2024 12:54 PM SWITCH REPAIRER us Ben Swan MD MICROBIOLOGY Final Res ult [facility] [address] [place] [address], [place] [phone] * (ABNORMAL) CBC WITH AUTO DIFFERENTIAL (06/03/2024 12:51 PM SWITCH REPAIRER) Only the most recent of2 resultswithin the time period is included. WHITE BLOOD COUNT 11.0 4.5 - 11.0 thou/cu mm 06/03/2024 1:05 PM SWITCH REPAIRER [facility] RED BLOOD COUNT 2.94(L) 4.00 - 5.20 mil/cu mm 06/03/2024 1:05 PM SWITCH REPAIRER [facility] HEMOGLOBIN 9.3(L) 12.0 - 16.0 g/dL 06/03/2024 1:05 PM SWITCH REPAIRER [facility] HEMATOCRIT 26.9(L) 33.0 - 51.0 % 06/03/2024 1:05 PM SWITCH REPAIRER [facility] MCV 92 80 - 100 fL 06/03/2024 1:05 PM SWITCH REPAIRER [facility] MCH 31.6 26.0 - 34.0 pg 06/03/2024 1:05 PM SWITCH REPAIRER [facility] MCHC 34.6 32.0 - 36.0 g/dL 06/03/2024 1:05 PM SWITCH REPAIRER [facility] RDW 18.9(H) 11.5 - 15.5 % 06/03/2024 1:05 PM SWITCH REPAIRER [facility] PLATELET COUNT 456(H) 140 - 440 thou/cu mm 06/03/2024 1:05 PM SWITCH REPAIRER [facility] MPV 9.8 6.5 - 11.0 fL 06/03/2024 1:05 PM SWITCH REPAIRER [facility] NRBC 0.6 % 06/03/2024 1:05 PM SWITCH REPAIRER [facility] ABS NRBC 0.1 thou /cu mm 06/03/2024 1:05 PM SWITCH REPAIRER [facility] % NEUT 69.9 % 06/03/2024 1:05 PM SWITCH REPAIRER [facility] % LYMPH 15.1 % 06/03/2024 1:05 PM SWITCH REPAIRER [facility] % MONO 13.4 % 06/03/2024 1:05 PM SWITCH REPAIRER [facility] % EOS 0.2 % 06/03/2024 1:05 PM SWITCH REPAIRER [facility] % BASO 0.9 % 06/03/2024 1:05 PM SWITCH REPAIRER [facility] % IMMATURE GRAN (METAS,MYELOS,RI OS) 0.5 % 06/03/2024 1:05 PM SWITCH REPAIRER [facility] ABSOLUTE NEUTROPHILS 7.7(H) 1.7 - 7.0 thou/cu mm 06/03/2024 1:05 PM [facility] ABSOLUTE LYMPHOCYTES 1.7 0.9 - 2.9 thou/cu mm 06/03/2024 1:05 PM SWITCH REPAIRER [facility] ABSOLUTE MONOCYTES 1.5(H) <0.9 thou/cu mm 06/03/2024 1:05 PM SWITCH REPAIRER [facility] ABSOLUTE EOSINOPHILS 0.0 <0.5 thou/cu mm 06/03/2024 1:05 PM SWITCH REPAIRER [facility] ABSOLUTE BASOPHILS 0.1 <0.3 thou/cu mm 06/03/2024 1:05 PM SWITCH REPAIRER [facility] ABSOLUTE IMMATURE GRANULOCYTES(MET ,MYELOS,PROS) 0.1 <0.3 thou/cu mm 06/03/2024 1:05 PM SWITCH REPAIRER [facility] Blood BLOOD SPECIMEN / Unknown IV Start / Unknown 06/03/2024 12:51 PM SWITCH REPAIRER 06/03/2024 12:54 PM SWITCH REPAIRER us Ben Swan MD HEMATOLOGY Final Res ult [facility] [address] [place] [address], * (ABNORMAL) BASIC METABOLIC PANEL (06/03/2024 12:51 PM SWITCH REPAIRER) Only the most recent of3 resultswithin the time period is included. SODIUM 135(L) 136 - 145 mmol/L 06/03/2024 1:13 PM SWITCH REPAIRER [facility] POTASSIUM 4.5 3.5 - 5.1 mmol/L 06/03/2024 1:13 PM SWITCH REPAIRER [facility] CHLORIDE 101 98 - 107 mmol/L 06/03/2024 1:13 PM SWITCH REPAIRER [facility] CO2,TOTAL 21(L) 22 - 29 mmol/L 06/03/2024 1:13 PM SWITCH REPAIRER [facility] ANION GAP 13 5 - 18 06/03/2024 1:13 PM SWITCH REPAIRER [facility] GLUCOSE 100(H) 70 - 99 mg/dL 06/03/2024 1:13 PM SWITCH REPAIRER [facility] CALCIUM 9.6 8.8 - 10.4 mg/dL 06/03/2024 1:13 PM SWITCH REPAIRER [facility] Comment: Reference ranges for this test were updated on 02/29/2024 to reflect our healthy population more accurately. Reference range changes are not retroactively applied to results, but previous results using the same methodology can be interpreted in the context of the new reference range. BUN 12 6 - 20 mg/dL 06/03/2024 1:13 PM SWITCH REPAIRER [facility] CREATININE 0.74 0.50 - 0.90 mg/dL 06/03/2024 1:13 PM SWITCH REPAIRER [facility] BUN/CREAT RATIO 16 10 - 20 5 1:13 PM SWITCH REPAIRER [facility] eGFR >90 >90 mL/min/1.7 3m2 06/03/2024 1:13 PM SWITCH REPAIRER [facility] Comment:As of 2021, eG FR is calculated by the CKD-EPI creatinine equation without race adjustment. eGFR can be influenced by muscle mass, exercise, and diet. The reported eGFR is an estimation only and is only applicable if the renal function is stable. Blood BLOOD SPECIMEN / Unknown IV Start / Unknown 06/03/2024 12:51 PM SWITCH REPAIRER 06/03/2024 12:54 PM SWITCH REPAIRER us Ben Swan MD CHEMISTRY Final Res ult [facility] [address] [place] [address], * XR CHEST 2 VIEWS PA AND LATERAL (06/03/2024 12:34 PM SWITCH REPAIRER) Anatomical Region Laterality Modality CHEST, THORAX, Lung, HEART Compu frank Radiography 06/03/2024 12:3 4 PM SWITCH REPAIRER Impressions 06/03/2024 1:03 PM SWITCH REPAIRER Faintly visible nodularity mid and lower lungs correspond to pulmonary nodules on recent CT. No focal pulmonary consolidation. No pleural effusion. No pneumothorax. Heart size normal. Port anterior right chest wall with right-sided CVC low SVC. In addition, there is a left-sided port anterior left chest wall with left CVC tip also in the low SVC. Narrative 06/03/2024 1:03 PM SWITCH REPAIRER For Patients: As a result of the [...] * EKG 12 LEAD (06/03/2024 11:48 AM SWITCH REPAIRER) Only the most recent of4 resultswithin the [...] NOW QTc 454 ms BEYOND NOW P [place] 54 degrees BEYOND NOW R [place] 55 degrees BEYOND NOW T [place] 31 degrees BEYOND NOW 06/03/2024 11:4 8 AM SWITCH REPAIRER 06/04/2024 3:27 AM SWITCH REPAIRER Narrative [facility] - 06/04/2024 3:27 AM SWITCH REPAIRER Test Indication: chest pain [facility] Triage EKG ORD Final Result [facility] [place], [place] * (ABNORMAL) HEMOGLOBIN (05/29/2024 2:23 PM SWITCH REPAIRER) HEMOGLOBIN 7.1(L) 12.0 - 16.0 g/dL 05/29/2024 2:32 PM SWITCH REPAIRER [facility] MCV 93 80 - 100 fL 05/29/2024 2:32 PM SWITCH REPAIRER [facility] Blood BLOOD SPECIMEN / Unknown IV Start / Unknown 05/29/2024 2:23 PM SWITCH REPAIRER 05/29/2024 2:30 PM SWITCH REPAIRER Ana Pacheco MD HEMATOLOGY Final Result [facility] [address] [place] [id number], * (ABNORMAL) RED CELL MORPHOLOGY (05/07/2024 6:20 PM SWITCH REPAIRER) Only the most recent of2 resultswithin the time period is included. POLYCHROMASIA Moderate 05/07/2024 6:33 PM SWITCH REPAIRER [facility] TARGET CELLS Moderate 05/07/2024 6:33 PM SWITCH REPAIRER [facility] RBC COMMENT Present(A) RBC morphology appears normal, RBC morphology within normal limits for newborns. 05/07/2024 6:33 PM SWITCH REPAIRER [facility] *SICKLE CELLS Present 05/07/2024 6:33 PM SWITCH REPAIRER [facility] Blood BLOOD SPECIMEN / Unknown Butterfly / Unknown 05/07/2024 6:20 PM SWITCH REPAIRER 05/07/2024 6:23 PM SWITCH REPAIRER us Caryn Rasmussen MD HEMATOLOGY Final Result Performing Organization Address [facility]/ZIP Co de Phone Number [facility] [address] [place] [address], [place] [phone] * PLATELET ESTIMATE (05/07/2024 6:20 PM SWITCH REPAIRER) Only the most recent of2 resultswithin the time period is included. PLATELET ESTIMATE Adequate Adequate, No estimate 05/07/2024 6:33 PM SWITCH REPAIRER [facility] Blood BLOOD SPECIMEN / Unknown Butterfly / Unknown 05/07/2024 6:20 PM SWITCH REPAIRER 05/07/2024 6:23 PM SWITCH REPAIRER Caryn Rasmussen MD HEMATOLOGY Final Result Performing Organization Address City/[facility] Co de Phone Number [facility] [address] [place] [address], [place] [phone] * (ABNORMAL) CBC W PLT NO DIFF (05/07/2024 6:20 PM SWITCH REPAIRER) WHITE BLOOD COUNT 15.6(H) 4.5 - 11.0 thou/cu mm 05/07/2024 6:33 PM SWITCH REPAIRER [facility] RED BLOOD COUNT 2.71(L) 4.00 - 5.20 mil/cu mm 05/07/2024 6:33 PM SWITCH REPAIRER [facility] HEMOGLOBIN 8.7(L) 12.0 - 16.0 g/dL 05/07/2024 6:33 PM SWITCH REPAIRER [facility] HEMATOCRIT 25.4(L) 33.0 - 51.0 % 05/07/2024 6:33 PM SWITCH REPAIRER [facility] MCV 94 80 - 100 fL 05/07/2024 6:33 PM SWITCH REPAIRER [facility] MCH 32.1 26.0 - 34.0 pg 05/07/2024 6:33 PM SWITCH REPAIRER [facility] MCHC 34.3 32.0 - 36.0 g/dL 05/07/2024 6:33 PM SWITCH REPAIRER [facility] RDW 23.3(H) 11.5 - 15.5 % 05/07/2024 6:33 PM SWITCH REPAIRER [facility] PLATELET COUNT 356 140 - 440 thou/cu mm 05/07/2024 6:33 PM SWITCH REPAIRER [facility] MPV 9.8 6.5 - 11.0 fL 05/07/2024 6:33 PM SWITCH REPAIRER [facility] NRBC 2.0 % 05/07/2024 6:33 PM SWITCH REPAIRER [facility] ABS NRBC 0.3 thou /cu mm 05/07/2024 6:33 PM SWITCH REPAIRER [facility] Blood BLOOD SPECIMEN / Unknown Butterfly / Unknown 05/07/2024 6:20 PM SWITCH REPAIRER 05/07/2024 6:23 PM SWITCH REPAIRER Caryn Rasmussen MD HEMATOLOGY Final Result [facility] [place] [address], * (ABNORMAL) RETICULOCYTES (05/07/2024 6:20 PM SWITCH REPAIRER) Only the most recent of2 resultswithin the time period is included. RETIC% 20.3(H) 0.5 - 1.5 % 05/07/2024 6:34 PM SWITCH REPAIRER [facility] RETIC (ABSOLUTE) 0.55(H) 0.03 - 0.08 mil/cu mm 05/07/2024 6:34 PM SWITCH REPAIRER [facility] Blood BLOOD SPECIMEN / Unknown Butterfly / Unknown 05/07/2024 6:20 PM SWITCH REPAIRER 05/07/2024 6:23 PM SWITCH REPAIRER Caryn Rasmussen MD HEMATOLOGY Final Result Performing Organization Address [facility]/ZIP Co de Phone Number [facility] [address] [place] [address], [place] [phone] * LIPASE (05/07/2024 6:20 PM SWITCH REPAIRER) LIPASE 35.9 13.0 - 60.0 IU/L 05/07/2024 6:53 PM SWITCH REPAIRER [facility] Blood BLOOD SPECIMEN / Unknown Butterfly / Unknown 05/07/2024 6:20 PM SWITCH REPAIRER 05/07/2024 6:23 PM SWITCH REPAIRER Caryn Rasmussen MD CHEMISTRY Final Result Performing Organization Address [facility] Co de Phone Number [facility] [address] [place] [address], * (ABNORMAL) HEPATIC FUNCTION PANEL (05/07/2024 6:20 PM SWITCH REPAIRER) Only the most recent of2 resultswithin the time period is included. ALBUMIN 4.4 4.0 - 4.9 g/dL 05/07/2024 6:53 PM SWITCH REPAIRER [facility] PROTEIN,TOTAL 8.1(H) 6.0 - 8.0 g/dL 05/07/2024 6:53 PM SWITCH REPAIRER [facility] BILIRUBIN,TOTAL 2.2(H) 0.0 - 1.2 mg/dL 05/07/2024 6:53 PM SWITCH REPAIRER [facility] BILIRUBIN,DIRECT 0.9(H) 0.0 - 0.2 mg/dL 05/07/2024 6:53 PM SWITCH REPAIRER [facility] BILIRUBIN,INDIRE CT 1.3(H) 0.2 - 0.8 mg/dL 05/07/2024 6:53 PM SWITCH REPAIRER [facility] ALK PHOSPHATASE 120(H) 35 - 104 IU/L 05/07/2024 6:53 PM SWITCH REPAIRER [facility] ALT (SGPT) 28 10 - 35 IU/L 05/07/2024 6:53 PM SWITCH REPAIRER [facility] AST (SGOT) 46(H) 10 - 35 IU/L 05/07/2024 6:53 PM SWITCH REPAIRER [facility] Blood BLOOD SPECIMEN / Unknown Butterfly / Unknown 05/07/2024 6:20 PM SWITCH REPAIRER 05/07/2024 6:23 PM SWITCH REPAIRER Caryn Rasmussen MD CHEMISTRY Final Result [facility] [address] [place] [address], * CT CHEST PE STUDY (05/04/2024 1:46 AM SWITCH REPAIRER) Anatomical Region Laterality Modality CHEST, THORAX, HEART Computed To mography 05/04/2024 1:46 AM SWITCH REPAIRER Impressions 05/04/2024 2:01 AM SWITCH REPAIRER 1. No pulmonary embolus. 2. Multiple small bilateral pulmonary nodules and mild enlargement of right hilar lymph nodes not significantly changed from the recent study of 04/06/2024. Differential diagnosis includes inflammatory/infectious and neoplastic etiologies. Narrative 05/04/2024 2:01 AM SWITCH REPAIRER For Patients: As a result of the Cures Act, medical imaging exams and procedure reports are released immediately into your electronic medical record. You may view this report before your referring provider. If you have questions, please contact your health care provider. EXAM: CT CHEST PE STUDY LOCATION: [facility] DATE: 05/04/2024 INDICATION: Pulmonary embolism (PE) [...] provider. EXAM: CT CHEST PE STUDY LOCATION: [facility] DATE: 05/04/2024 INDICATION: Pulmonary embolism (PE) [...] EXAM REFLEXED PER CRITERIA (05/04/2024 12:07 AM SWITCH REPAIRER) COLOR Yellow Yellow Color 05/04/2024 12:18 AM [facility] CLARITY Clear Clear Clarity 05/04/2024 12:18 AM [facility] SPECIFIC GRAVITY,URINE 1.015 1.010, 1.015, 1.020, 1.025 05/04/2024 12:18 AM [facility] PH,URINE 7.0 6.0, 7.0, 8.0, 5.5, 6.5, 7.5, 8.5 05/04/2024 12:18 AM [facility] UROBILINOGEN,Q UALITATIVE Normal Normal EU/dl 05/04/2024 12:18 AM [facility] PROTEIN, URINE Negative Negative mg/dL 05/04/2024 12:18 AM [facility] GLUCOSE, URINE Negative Negative mg/dL 05/04/2024 12:18 AM [facility] KETONES,URINE Negative Negative mg/dL 05/04/2024 12:18 AM [facility] BILIRUBIN,URIN E Negative Negative 05/04/2024 12:18 AM [facility] OCCULT BLOOD,URINE Negative Negative 05/04/2024 12:18 AM [facility] NITRITE Negative Negative 05/04/2024 12:18 AM SWITCH REPAIRER [facility] LEUKOCYTE ESTERASE Negative Negative 05/04/2024 12:18 AM SWITCH REPAIRER [facility] Urine URINE SPECIMEN / Unknown Non-Blood / Unknown 05/04/2024 12:07 AM SWITCH REPAIRER 05/04/2024 12:13 AM SWITCH REPAIRER Anika Mccracken MD URINE Final Resu lt [facility] [address] [place], [place] [id number], [place] [phone] * URINE (05/04/2024 12:07 AM SWITCH REPAIRER) ,URIN E Negative Negative 05/04/2024 12:22 AM SWITCH REPAIRER [facility] Urine URINE SPECIMEN / Unknown Non-Blood / Unknown 05/04/2024 12:07 AM SWITCH REPAIRER 05/04/2024 12:13 AM SWITCH REPAIRER Anika Mccracken MD URINE Final Resu lt Performing Organization Address City/[facility]/ZIP Co de Phone Number [facility] [address] [place] [id number], [place] [phone] * CWS PATH REVIEW HEMATOLOGY (05/03/2024 11:52 PM SWITCH REPAIRER) PATH COMMENT Comment: 05/06/2024 7:30 AM SWITCH REPAIRER [facility] Comment:Frequent sickle cell s. Reviewed by Dr. Richar Huffman on 05/05/2024 Blood BLOOD SPECIMEN / Unknown IV Start / Unknown 05/03/2024 11:52 PM SWITCH REPAIRER 05/03/2024 11:52 PM SWITCH REPAIRER Anika Mccracken MD LABORATORY Final Resu lt [facility] [address] [place] [phone], * (ABNORMAL) MANUAL DIFFERENTIAL (05/03/2024 11:52 PM SWITCH REPAIRER) % NEUTROPHILS 55.0 % 05/04/2024 12:13 AM SWITCH REPAIRER [facility] % LYMPHOCYTES 33.0 % 05/04/2024 12:13 AM SWITCH REPAIRER [facility] % MONOCYTES 10.0 % 05/04/2024 12:13 AM SWITCH REPAIRER [facility] % EOSINOPHILS 2.0 % 05/04/2024 12:13 AM SWITCH REPAIRER [facility] % BASOPHILS 0.0 % 05/04/2024 12:13 AM SWITCH REPAIRER [facility] NEUTROPHILS ABSOLUTE 10.6(H) 1.7 - 7.0 thou/cu mm 05/04/2024 12:13 AM SWITCH REPAIRER [facility] LYMPHOCYTES ABSOLUTE 6.3(H) 0.9 - 2.9 thou/cu mm 05/04/2024 12:13 AM SWITCH REPAIRER [facility] MONOCYTES ABSOLUTE 1.9(H) <0.9 thou/cu mm 05/04/2024 12:13 AM SWITCH REPAIRER [facility] EOSINOPHILS ABSOLUTE 0.4 <0.5 thou/cu mm 05/04/2024 12:13 AM SWITCH REPAIRER [facility] BASOPHILS ABSOLUTE 0.0 <0.3 thou/cu mm 05/04/2024 12:13 AM [facility]PA[facility]ER [facility] [facility] Blood BLOOD SPECIMEN / Unknown IV Start / Unknown 05/03/2024 11:52 PM SWITCH REPAIRER 05/03/2024 11:52 PM SWITCH REPAIRER us Anika Mccracken MD HEMATOLOGY Final Resu lt [facility] [address] [place] [id number], * (ABNORMAL) D-DIMER,QUANTITATIVE (05/03/2024 11:52 PM SWITCH REPAIRER) D-DIMER,QUANTI TATIVE 1.51(H) <=0.49 FEU mcg/mL 05/04/2024 12:28 AM SWITCH REPAIRER [facility] Blood BLOOD SPECIMEN / Unknown IV Start / Unknown 05/03/2024 11:52 PM SWITCH REPAIRER 05/03/2024 11:52 PM SWITCH REPAIRER Narrative [facility] - 05/04/2024 12:28 AM SWITCH REPAIRER The cut off value for exclusion of Deep Vein Thrombosis and / or Pulmonary Embolism is 0.50 FEU mcg/mL For patients greater than 50 years of age the upper limit is age dependent and was calculated with the formula: (PATIENT AGE x 0.01) FEU mcg/mL = Upper limit of normal range us Anika Mccracken MD HEMATOLOGY Final Resu lt [address] [address], from Last 3 Months Insurance [facility] Advance Directives * Full Code (Latest Code Status on File) Date Activated Date Inactivated Comments 03/28/2024 10:36 PM 03/30/2024 11:39 AM Question Answer Comments Code Status Discussion: Reviewed Preferences * Full Code Date Activated Date Inactivated Comments 03/16/2024 1:29 AM 03/18/2024 1:58 PM Question Answer Comments Code Status Discussion: Reviewed Preferences Care Teams Remedial Reading Teacher Relationship Specialty Start Date End Date Veronica Joseph MD [address] [place] [address] PCP - General Family Practice 03/29/24
--- OUTSIDE RECORDS SUMMARY | 2024-07-28 21:34 | XMS_ITS | Encounter Summary ---
Author Organization [place] Address [address] [place] [address]. 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 Cancer [address] [phone] Case Samuel MD [address] [place] [address], ROOM [address] [address] 08/08/2024 8:00 AM CDT Appointment [facility] Advanced Treatment [address] [phone] Case Samuel MD [address] [place] [address], ROOM [address] [address] 10/30/2024 11:[address] [facility] Cancer [address] [phone] Case Samuel MD [address] [place] [address], ROOM [address] [address] 10/30/2024 12:00 PM CDT Oncology Visit [facility] Cancer [address] [phone] Case Samuel MD [address] [facility] 484, [address] [place] [address] documented as of this encounter Goals Goal [...] on filedocumented in this encounter Care Teams Freight Associate Relationship Specialty Start Date End Date Veronica Joseph MD [address] [place] [address] PCP - General Family Medicine 06/18/24 Mor Ramsey Medical Student 04/03/24 Case Samuel MD [address] [facility] 484, [address] [place] [address] Assigned Pediatric Specialist Provider 05/18/24 Juhi Benson, RN Specialty Director Of Operations Hematology & Oncology 05/29/24 documented as of this encounter
--- OUTSIDE RECORDS SUMMARY | 2024-07-28 21:34 | XMS_ITS | Encounter Summary ---
Author Organization [place] Address [address] [place] [address]. 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 Gender Identity Not on file Sexual Orientation Not on file documented as of this encounter Plan of Treatment Upcoming Encounters Date Type Department Care Team (Late st Contact Info) Description 08/07/2024 7:15 AM CDT Lab [facility] Cancer [address] [phone] Case Samuel MD [address] [place] [address], ROOM [address] [address] 08/08/2024 8:00 AM CDT Appointment [facility] Advanced Treatment [address] [phone] Case Samuel MD [address] [place] [address], ROOM [address] [address] 10/30/2024 11:30 AM CDT Lab [facility] Cancer [address] [phone] Case Samuel MD [address] [place] [address], ROOM [address] [address] 10/30/2024 12:00 PM CDT Oncology Visit [facility] Cancer [address] [phone] Case Samuel MD [address] [facility] 484, [address] [place] [address] documented as of this encounter Goals Goal [...] on filedocumented in this encounter Care Teams Analytical Tech Relationship Specialty Start Date End Date Veronica Joseph MD [address] [place] [address] PCP - General Family Medicine 06/18/24 Mor Ramsey Medical Student 04/03/24 Case Samuel MD [address] [facility] 484, [address] [place] [address] Assigned Pediatric Specialist Provider 05/18/24 Juhi Benson, RN Specialty Panel Wirer Hematology & Oncology 05/29/24 documented as of this encounter
--- OUTSIDE RECORDS SUMMARY | 2024-07-28 21:34 | XMS_ITS | Encounter Summary ---
Author Organization [facility] Address [address] [place] [address]. [place] [address] Care Team Providers Care Optician Manager Name Role Phone RoxyElvirac Unavailable Unavailable Case Samuel MD Unavailable [phone] Juhi Benson RN Unavailable Unavailable Veronica Joseph MD Primary Care Provider [phone] Reason for Visit * Reason Onset Date Comments Refill Request 06/29/2024 Encounter Details Date Type Department Care Team (Late st Contact Info) Description 06/29/[address] [place] [address] Case Samuel MD [address] [place] [address], [address] [place], [place] [address] Refill Request Social History Tobacco Use Types [...] on file Legal Sex Female 8:[address]ER Gender Identity Not on file Sexual [...] and by whom: 06/15/[address] 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 Samuel and ESTEVAN Reynaga. WAY COMMISSIONER documented in this encounter Plan of Treatment Upcoming Encounters Date Type Department Care Team (Late st Contact Info) Description 08/07/2024 7:[address] [facility] Cancer [address] [phone] Case Samuel MD [address] [place] [address], [address] [place] [address] 08/08/2024 8:00 AM CDT Appointment [facility] [address] [phone] Case Samuel MD [address] [place] [address], [address] [place] [address] 10/30/2024 11:[address] [facility] Cancer [address] [phone] Case Samuel MD [address] [place] [address], ROOM [address] [address] 10/30/2024 12:00 PM CDT Oncology Visit [facility] Cancer [address] [phone] Case Samuel MD [address] [place] [address], ROOM [address] [address] documented as of this encounter Goals Goal [...] crisis documented in this encounter Care Teams Optician Manager Relationship Specialty Start Date End Date Veronica Joseph MD [address] [place] [address] PCP - General Family Medicine 06/18/24 Mor Ramsey Medical Student 04/03/24 Case Samuel MD [address] [place] [address], [address] [place] [address] Assigned Pediatric Specialist Provider 05/18/24 Juhi Benson, RN Specialty Dining Room Attendant Cafeteria Hematology & Oncology 05/29/24 documented as of this encounter
--- OUTSIDE RECORDS SUMMARY | 2024-07-28 21:34 | XMS_ITS | Encounter Summary ---
Author Organization [facility] Address [address] [place] [address] Care Team Providers Care Tube Roller Name Role Phone None Reported, Pcp Primary [...] CDT - 07/24/2024 4:36 AM CDT Emergency [place] [facility] [address] [place] [phone] Noel Luo M.D. [address] [place] [phone] Hb-SS Disease (Sickle Cell) Vaso-Occlusive Pain Crisis [...] Everywhere. * Living With Sickle Cell Disease (Nigerian) documented in this encounter Medications at [...] I reviewed her care plan from the [facility] and ordered this for her. We [...] M.D. LAB BLOOD ADD-ON Final Resu lt [facility] [address] [place] [address], [facility] [place] [address] [place] [address] * (ABNORMAL) Reticulocytes (07/23/2024 11:25 PM CDT) [facility] Reticulocytes, B 4.78(H) 0.60 - 2.71 % 07/23/2024 11:36 PM CDT [facility] Absolute Reticulocyte 123.8(H) 30.4 - 110.9 x10(9)/L 07/23/2024 11:36 PM CDT [facility] Blood (Blood, Venous) 07/23/2024 11:25 PM CDT 07/23/2024 11:28 PM CDT us Noel Luo M.D. LAB BLOOD ADD-ON Final Resu lt [facility] [address] [place] [address], [facility] [place] [facility] [place] [address] * (ABNORMAL) CBC with Differential, Blood (07/23/2024 11:25 PM CDT) [facility] Hemoglobin 8.1(L) 11.6 - 15.0 g/dL 07/23/2024 [...] M.D. LAB BLOOD ADD-ON Final Resu lt [facility] [address] [place] [address], [facility] R[facility] [place] [address] [place] [phone] documented in this encounter Visit Diagnoses Diagnosis [...] discharge. documented in this encounter Care Teams Tube Roller Relationship Specialty Start Date End Date None Reported, Pcp PCP - General Family Medicine 07/22/24 documented as of this encounter
--- OUTSIDE RECORDS SUMMARY | 2024-07-28 21:34 | XMS_ITS | Encounter Summary ---
Author Organization [facility] Address [address] [place] [address]. [place] [address] Care Team Providers Care Electric Deicer Assembler Name Role Phone RoxyElvirac Unavailable Unavailable Case Samuel MD Unavailable [phone] Juhi Benson RN Unavailable Unavailable Veronica Joseph MD Primary Care Provider [phone] Reason for Visit * Reason Comments Sickle Cell Pain Crisis Encounter Details Date Type Department Care Team (Late st Contact Info) Description 07/20/2024 10:32 AM CDT - 07/20/2024 1:57 PM CDT Emergency [facility] Emergency Department [address] [place] [phone] Payal Arriaga, [address] [address] Sickle cell pain crisis (H); Bilateral leg [...] on file 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 [facility] ([facility]) 07/20/24 ED PROVIDER NOTE History Chief Complaint [...] 11/2022 culture-negative, [facility] Functional asplenia Gallstones Hb-SS disease without [...] performed during the hospital encounter of 07/20/24 [place] Draw Status: None (In process) Narrative The following orders were created for panel order [place] [facility]. Procedure Abnormality Status --------- ------ Extra Blue Top Tube[[id number]] In process Extra Red Top Tube[[id number]] In process Extra Green Top (Lithiu...[[id number]] In process Extra Purple Top Tube[[id number]] In process Please view results for these [...] Arriaga DO on 07/20/2024 at 1:57 PM [facility] 07/20/2024 Payal Arriaga DO 07/20/24 2537 documented in this encounter Plan of Treatment Upcoming Encounters Date Type Department Care Team (Late st Contact Info) Description 08/07/2024 7:15 AM CDT Lab [facility] [address] [place] [phone] Case Samuel MD [address] [place] [address], [address] [place], [place] [address] 08/08/2024 8:00 AM CDT Appointment [facility] [place] [address] [place] [phone] Case Samuel MD [address] [facility] 484, [address] [place] [address] 10/30/2024 11:30 AM CDT Lab [facility] [address] [place] [phone] Case Samuel MD [address] [place] [address], [address] [place] [address] 10/30/2024 12:00 PM CDT Oncology Visit [facility] Cancer [address] [phone] Case Samuel MD [address] [place] [address], ROOM [address] [address] Pending Results Name Type Priority Associated Diagnoses Date /Time [place] [facility] STAT 07/20/2024 1 1:28 AM CDT Extra Blue Top Tube Lab STAT 07/20 11:28 AM CDT Extra Red Top Tube Lab STAT 2024 11:28 AM CDT Extra Green Top ([place] Heparin) Tube Lab STAT 07/20/2024 11:28 AM CDT Extra Purple Top Tube Lab STAT 11:28 AM CDT Scheduled Orders Name Type Priority Associated Diagnoses Orde r Schedule [place] [facility] STAT Routine for 1 Occurrences starting 07/20/2024 until 07/20/2024 Extra Blue Top Tube Lab STAT Once for 1 Occurrences starting 07/20/2024 until 07/20/2024, 1 completed Extra Red Top Tube Lab STAT Once f or 1 Occurrences starting 07/20/2024 until 07/20/2024, 1 completed Extra Green Top ([place] Heparin) Tube Lab STAT Once for 1 [...] SOFIA) documented in this encounter Care Teams Electric Deicer Assembler Relationship Specialty Start Date End Date Veronica Joseph MD [address] [place] [address] PCP - General Family Medicine 06/18/24 Mor Ramsey Medical Student 04/03/24 Case Samuel MD [address] [place] [address], [address] [place] [address] Assigned Pediatric Specialist Provider 05/18/24 Juhi Benson, RN Specialty Degreasing Wheel Operator Hematology & Oncology 05/29/24 documented as of this encounter
--- OUTSIDE RECORDS SUMMARY | 2024-07-28 21:34 | XMS_ITS | Encounter Summary ---
Author Organization [place] Address [address] [place] [address]. [place] [address] Care Team Providers Care Bedspread Cutter Name Role Phone RoxyElvirac Unavailable Unavailable Case Samuel MD Unavailable [phone] Juhi Benson RN Unavailable Unavailable Veronica Joseph MD Primary Care Provider [phone] Reason for Visit * Reason Comments Sickle Cell Pain Crisis Chest Pain Encounter Details Date Type Department Care Team ([facility] st Contact Info) Description 07/25/2024 7:48 PM CDT - 07/25/2024 11:26 PM CDT Emergency [facility] ED Emergency Department [address] [place] [phone] Emanuel Chester MD [address] [place] [phone] Sickle cell pain crisis (H) Discharge Disposition: [...] on file 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 * Sickle Cell Crisis (Macanese) documented in this encounter Medications at Time [...] 05/01/2024 naloxone (NARCAN) 4 MG/0.1ML nasal spray [place] 1 spray (4 mg) into one nostril alternating nostrils as needed for opioid reversal (for opiate overdose if not breathing and unconscious. have your family member watch video on how to use/read information sheet). every 2-3 minutes until assistance arrives 2 each 06/06/2024 documented as of this encounter ED Notes * Juhi Crump RN - 07/25/2024 7:48 PM CDT Bed: [facility] Expected date: Expected time: Means of arrival: [...] from the original note were not included. [facility] ([facility]) 07/25/24 ED PROVIDER NOTE History Chief Complaint [...] performed during the hospital encounter of 07/25/24 [place] Draw Status: None (In process) Narrative The following orders were created for panel order [place] Draw. Procedure Abnormality Status --------- ------ Extra Blue Top Tube[[id number]] In process Extra Red Top Tube[[id number]] In process Extra Green Top (Lithiu...[[id number]] Extra Purple Top Tube[[id number]] Please view results for these tests on [...] Rate 88 BPM Atrial Rate 88 BPM AL Interval 138 ms QRS Duration 76 ms QT 356 ms QTc 430 ms P [place] 62 degrees R AXIS 57 degrees T [place] 21 degrees Interpretation ECG Sinus rhythm Normal ECG CBC with platelets differential Status: Abnormal Narrative The following orders were created for panel order CBC with platelets differential. Procedure Abnormality Status --------- ------ CBC with platelets and ...[[id number]] Abnormal Final result RBC and Platelet Morpho...[[id number]] Abnormal Final result Please view results for [...] Dmitriy Long, am serving as a trained medical bill processor to document services personally performed by Emanuel Chester MD based on the provider's statements to me on July 25, 2024. This document has been checked and approved by the attending provider. Emanuel Long MD, was physically present and have reviewed and verified the accuracy of this note documented by Dmitriy Steinberg, medical bill processor. Emanuel Chester MD [facility] 07/25/2024 Emanuel Chester MD 07/25/24 6595 documented in this encounter Plan of Treatment Upcoming Encounters Date Type Department Care Team (Late st Contact Info) Description 08/07/2024 7:15 AM CDT Lab [facility] Cancer [address] [phone] Case Samuel MD [address] [place] [address], [address] [address] 08/08/2024 8:00 AM CDT Appointment [facility] Advanced Treatment [address] [phone] Case Samuel MD [address] [place] [address], ROOM [address] [address] 10/30/2024 11:30 AM CDT Lab [facility] Cancer [address] [phone] Case Samuel MD [address] [place] [address], [address] [address] 10/30/2024 12:00 PM CDT Oncology Visit [facility] Cancer [address] [phone] Case Samuel MD [address] [place] [address], ROOM [address] [address] Pending Results Name Type Priority Associated Diagnoses Date /Time [place] [facility] Lab STAT 07/25/2024 8 :24 PM CDT EKG 12-lead, tracing only EKG STAT 07/25/2024 7:55 PM CDT Extra Blue Top Tube Lab STAT 07/25 8:24 PM CDT Extra Red Top Tube Lab STAT 2024 8:24 PM CDT Scheduled Orders Name Type Priority Associated Diagnoses Orde r Schedule [place] [facility] Lab STAT Routine for 1 Occurrences [...] and Platelet Morphology (07/25/2024 8:24 PM CDT) [facility] RBC Morphology Confirmed RBC Indices 07/25/2024 [...] BLOOD ORDERABLES Final Re sult [facility] [address] [facility], Room [address] [place] [address] * (ABNORMAL) CBC with platelets and differential (07/25/2024 8:24 PM CDT) [facility] WBC Count 11.5(H) 4.0 - 11.0 [...] BLOOD ORDERABLES Final Re sult [facility] [address] [facility], Room [address] [phone] * (ABNORMAL) Reticulocyte count (07/25/2024 8:24 PM [...] ORDERABLES Final Re sult Performing Organization Address [facility] de Phone Number LABORATORY [facility] [address] [facility], Room [address] [phone] * Troponin T, High Sensitivity (07/25/2024 8:24 PM CDT) [facility] Troponin T, High Sensitivity <6 [...] BLOOD ORDERABLES Final Re sult [facility] [address] [facility], Room [address] [phone] * (ABNORMAL) Comprehensive metabolic panel (07/25/2024 8:24 [...] BLOOD ORDERABLES Final Re sult [facility] [address] [facility], Room [address] [place] [address] documented in this encounter Visit Diagnoses [...] RN) documented in this encounter Care Teams Bedspread Cutter Relationship Specialty Start Date End Date Veronica Joseph MD [address] [place] [address] PCP - General Family Medicine 06/18/24 Mor Ramsey Medical Student 04/03/24 Case Samuel MD [address] [place] [address], [address] [place] [address] Assigned Pediatric Specialist Provider 05/18/24 Juhi Benson, RN Specialty Fire Ranger Hematology & Oncology 05/29/24 documented as of this encounter
--- OUTSIDE RECORDS SUMMARY | 2024-07-28 21:34 | XMS_ITS | Encounter Summary ---
Author Organization [facility] Address [address] [place] [address]. 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 Gender Identity Not on file Sexual Orientation Not on file documented as of this encounter Plan of Treatment Upcoming Encounters Date Type Department Care Team (Late st Contact Info) Description 08/07/2024 7:15 AM CDT Lab [facility] Cancer [address] [phone] Case Samuel MD [address] [place] [address], RO[address] [address] 08/08/2024 8:00 AM CDT Appointment [facility] Advanced Treatment [address] [phone] Case Samuel MD [address] [place] [address], [address] [address] 10/30/2024 11:30 AM CDT Lab [facility] Cancer [address] [phone] Case Samuel MD [address] [place] [address], [address] [address] 10/30/2024 12:00 PM CDT Oncology Visit [facility] Cancer [address] [phone] Case Samuel MD [address] [facility] 484, [address] [place] [address] documented as of this encounter Goals Goal [...] on filedocumented in this encounter Care Teams Shove Up Relationship Specialty Start Date End Date Veronica Joseph MD [address] [place] [address] PCP - General Family Medicine 06/18/24 Mor Ramsey Medical Student 04/03/24 Case Samuel MD [address] [facility] 484, [address] [place] [address] Assigned Pediatric Specialist Provider 05/18/24 Juhi Benson, RN Specialty Lace Winder Hematology & Oncology 05/29/24 documented as of this encounter
--- OUTSIDE RECORDS SUMMARY | 2024-07-28 21:34 | XMS_ITS | Encounter Summary ---
Author Organization [facility] Address [address] [place] [address]. [place] [address] Care Team Providers Care Phytopathology Teacher Name Role Phone RoxyElvirac Unavailable Unavailable Case Samuel MD Unavailable [phone] Juhi Benson RN Unavailable Unavailable Veronica Joseph MD Primary Care Provider [phone] Reason for Visit * Reason Comments Sickle Cell Pain Crisis Back, chest, BLE Encounter Details Date Type Department Care Team ([facility] st Contact Info) Description 07/19/2024 2:47 AM CDT - 07/19/2024 6:48 AM CDT Emergency [facility] Emergency Department [address] [place] [phone] Keshia Schofield MD [address] [place] [address] Sickle cell pain crisis (H) Discharge [...] file 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 Procedure Abnormality Status --------- ------ Extra Green Top (Lithiu...[[id number]] In process Extra Purple Top Tube[[id number]] In process Please view results for these tests on the individual orders. EKG 12-lead, tracing only Status: None (Preliminary result) Result Value Ref Range Systolic Blood Pressure mmHg Diastolic Blood Pressure mmHg Ventricular Rate 92 BPM Atrial Rate 92 BPM ME Interval 152 ms QRS Duration 86 ms QT 350 ms QTc 432 ms P [place] 0 degrees R AXIS 67 degrees T [place] 34 degrees Interpretation ECG Sinus rhythm Normal ECG Medications hydromorphone (DILAUDID) injection 2 mg (2 mg Intravenous $Given 07/19/24 0605) lactated ringers BOLUS 1,000 mL (0 mLs Intravenous Stopped 07/19/24 0520) ondansetron (ZOFRAN) injection 8 mg (8 mg Intravenous $Given 07/19/24 0327) diphenhydrAMINE (BENADRYL) capsule 50 mg (50 mg Oral $Given 07/19/24 4775) Labs Ordered and Resulted from Time of [...] cell pain crisis (H) Keshia Schofield MD [facility] EMERGENCY DEPARTMENT 07/19/2024 Keshia Schofield MD 07/19/24 0615 documented in this encounter Plan of Treatment Upcoming Encounters Date Type Department Care Team (Late st Contact Info) Description 08/07/2024 7:15 AM CDT Lab [facility] Cancer [address] [phone] Case Samuel MD [address] [place] [address], [address] [address] 08/08/2024 8:00 AM CDT Appointment [facility] Center [address] [phone] Case Samuel MD [address] [place] [address], [address] [address] 10/30/2024 11:30 AM CDT Lab [facility] Cancer [address] [phone] Case Samuel MD [address] [place] [address], [address] [address] 10/30/2024 12:00 PM CDT Oncology Visit [facility] Cancer [address] [phone] Case Samuel MD [address] [place] [address], ROOM [address] [address] Pending Results Name Type Priority Associated Diagnoses Date /Time [facility] [place] Lab STAT 07/19/2024 3 :08 AM CDT Extra Green Top ([place] Heparin) Tube Lab STAT 07/19/2024 3:08 AM CDT Extra Purple Top Tube Lab STAT 3:08 AM CDT Scheduled Orders Name Type Priority Associated Diagnoses Orde r Schedule [facility] [place] STAT Routine for 1 Occurrences starting 07/19/2024 until 07/19/2024 Extra Green Top ([place] Heparin) Tube Lab STAT Once for 1 [...] Atrial Rate 92 BPM RADIOLOG Y RESULTS ME Interval 152 ms RADIOLOG Y RESULTS QRS Duration 86 ms RADIOLO GY RESULTS QT 350 ms RADIOLOGY RESULTS QTc 432 ms RADIOLOGY RESULTS P [place] 0 degrees RADIOLOGY RESULTS R AXIS 67 degrees RADIOLOGY RESULTS T [place] 34 degrees RADIOLOGY RESULTS Interpretation ECG Sinus rhythm Normal ECG Unconfirmed report - interpretation of this ECG is computer generated - see medical record for final interpretation Confirmed by - EMERGENCY ROOM, PHYSICIAN ([id number]), index editor JESSICA CLANCY ([id number]) on 07/19/2024 6:36:56 AM [...] RN) documented in this encounter Care Teams Phytopathology Teacher Relationship Specialty Start Date End Date Veronica Joseph MD [address] [place] [address] PCP - General Family Medicine 06/18/24 Mor Ramsey Medical Student 04/03/24 Case Samuel MD [address] [place] [address], [address] [place] [address] Assigned Pediatric Specialist Provider 05/18/24 Juhi Benson, RN Specialty Rn Ostomy Hematology & Oncology 05/29/24 documented as of this encounter
--- OUTSIDE RECORDS SUMMARY | 2024-07-28 21:34 | XMS_ITS | Encounter Summary ---
Author Organization [facility] Address [address] [place] [address]. 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 Gender Identity Not on file Sexual Orientation Not on file documented as of this encounter Plan of Treatment Upcoming Encounters Date Type Department Care Team (Late st Contact Info) Description 08/07/2024 7:15 AM CDT Lab [facility] Cancer [address] [phone] Case Samuel MD [address] [place] [address], RO[address] [address] 08/08/2024 8:00 AM CDT Appointment [facility] Advanced Treatment [address] [phone] Case Samuel MD [address] [place] [address], ROOM [address] [address] 10/30/2024 11:30 AM CDT Lab [facility] Cancer [address] [phone] Case Samuel MD [address] [place] [address], [address] [address] 10/30/2024 12:00 PM CDT Oncology Visit [facility] Cancer [address] [phone] Case Samuel MD [address] [facility] 484, [address] [place] [address] documented as of this encounter Goals Goal [...] filedocumented in this encounter Care Teams Medical Technologist Chief Relationship Specialty Start Date End Date Veronica Joseph MD [address] [place] [address] PCP - General Family Medicine 06/18/24 Mor Ramsey Medical Student 04/03/24 Case Samuel MD [address] [facility] 484, RO[address] [place] [address] Assigned Pediatric Specialist Provider 05/18/24 Juhi Benson, RN Specialty Marine Rigger Hematology & Oncology 05/29/24 documented as of this encounter
--- OUTSIDE RECORDS SUMMARY | 2024-07-28 21:34 | XMS_ITS | Encounter Summary ---
Author Organization [facility] Address [address] [place] [address]. 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 Gender Identity Not on file Sexual Orientation Not on file documented as of this encounter Plan of Treatment Upcoming Encounters Date Type Department Care Team (Late st Contact Info) Description 08/07/2024 7:15 AM CDT Lab [facility] Cancer [address] [phone] Case Samuel MD [address] [place] [address], [address] [address] 08/08/2024 8:00 AM CDT Appointment [facility] Advanced Treatment [address] [phone] Case Samuel MD [address] [place] [address], RO[address] [address] 10/30/2024 11:30 AM CDT Lab [facility] Cancer [address] [phone] Case Samuel MD [address] [place] [address], RO[address] [address] 10/30/2024 12:00 PM CDT Oncology Visit [facility] Cancer [address] [phone] Case Samuel MD [address] [facility] 484, RO[address] [place] [address] documented as of this encounter Goals Goal [...] on filedocumented in this encounter Care Teams Spinning Frame Changer Relationship Specialty Start Date End Date Veronica Joseph MD [address] [place] [address] PCP - General Family Medicine 06/18/24 Mor Ramsey Medical Student 04/03/24 Case Samuel MD [address] [facility] 484, [address] [place] [address] Assigned Pediatric Specialist Provider 05/18/24 Juhi Benson, RN Specialty Tent Assembler Hematology & Oncology 05/29/24 documented as of this encounter
--- OUTSIDE RECORDS SUMMARY | 2024-07-28 21:34 | XMS_ITS | Encounter Summary ---
Author Organization [facility] Address [address] [place] [address] Care Team Providers Care Electronic Engineering Technician Name Role Phone Roxy Mor Unavailable Unavailable Case Samuel MD Unavailable [phone] Juhi Benson RN Unavailable Unavailable Veronica Joseph MD Primary Care Provider [phone] Reason for Visit * Reason Comments Sickle Cell Pain Crisis Encounter Details Date Type Department Care Team ([facility] st Contact Info) Description 07/18/2024 11:21 AM CDT - 07/18/2024 2:47 PM CDT Emergency [facility] Emergency Department [address] [place] [phone] Dave Mcfarlane MD [address] [place] [id number] Sickle cell pain crisis (H) Discharge Disposition: [...] file 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 Return precautions provided. I have [...] crisis (H) Chart documentation was completed with [employer] voice-recognition software. Even though reviewed, this chart may still contain some grammatical, spelling, and word errors. [facility] EMERGENCY DEPARTMENT 07/18/2024 Dave Mcfarlane MD 07/18/242025 documented in this encounter Plan of Treatment Upcoming Encounters Date Type Department Care Team (Late st Contact Info) Description 08/07/2024 7:15 AM CDT Lab [facility] Cancer [address] [phone] Case Samuel MD [address] [place] [address], [address]OM [address] [address] 08/08/2024 8:00 AM CDT Appointment [facility] Advanced Treatment [address] [phone] Case Samuel MD [address] [place] [address], ROOM [address] [address] 10/30/2024 11:30 AM CDT Lab [facility] Cancer [address] [phone] Case Samuel MD [address] [place] [address], [address] [address] 10/30/2024 12:00 PM CDT Oncology Visit [facility] Cancer [address] [phone] Case Samuel MD [address] [place] [address], ROOM [address] [address] documented as of this encounter Goals Goal [...] lumen documented in this encounter Care Teams Electronic Engineering Technician Relationship Specialty Start Date End Date Veronica Joseph MD [address] [place] [address] PCP - General Family Medicine 06/18/24 Mor Ramsey Medical Student 04/03/24 Case Samuel MD [address] [place] [address], [address] [place] [address] Assigned Pediatric Specialist Provider 1/23/25 Juhi Benson, RN Specialty Journeyman Painter Hematology & Oncology 05/29/24 documented as of this encounter
--- OUTSIDE RECORDS SUMMARY | 2024-07-28 21:34 | XMS_ITS | Encounter Summary ---
Author Organization [facility] Address [address] [place] [address] Care Team Providers Care Aviation Manager Name Role Phone RoxyElvirac Unavailable Unavailable Case Samuel MD Unavailable [phone] Juhi Benson RN Unavailable Unavailable Veronica Joseph MD Primary Care Provider [phone] Reason for Visit * Reason Comments Sickle Cell Pain Crisis Encounter Details Date Type Department Care Team (Late st Contact Info) Description 07/26/2024 8:38 PM CDT - 07/27/2024 1:05 AM CDT [facility] Emergency Department [address] [place] [phone] Abdelrahman Goddard MD [address] [place], [place] 3[address] Payal Arriaga DO [address] [place] [address] Sickle cell disease with crisis (H) Discharge [...] file 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 have your family member watch video on how to use/read information sheet). every 2-3 minutes until assistance arrives 2 each 06/06/2024 documented as of this encounter ED Notes * Abdelrahman Goddard MD - 07/26/2024 8:40 PM CDT ED Provider Note [facility] History Chief Complaint Patient presents with [...] Beronica Long, am serving as a trained biomedical equipment tech to document services personally performed by Abdelrahman Goddard MD, based on the provider's statements to me. IAbdelrahman MD, was physically present and have reviewed and verified the accuracy of this note documented by Beronica Gary. Abdelrahman Goddard MD [facility] EMERGENCY DEPARTMENT 07/26/2024 Abdelrahman Goddard MD 07/26/24 2311 * Lavinia Ozuna RN - 07/26/2024 8:33 PM CDT Pt ambulatory to triage c/o sickle cell crisis started yesterday. Pt states she has a 9/10 chest pain. documented in this encounter Plan of Treatment Upcoming Encounters Date Type Department Care Team (Late st Contact Info) Description 08/07/2024 7:15 AM CDT Lab [facility] Cancer [address] [phone] Case Samuel MD [address] [place] [address], [address] [place], [place] [address] 08/08/2024 8:00 AM CDT Appointment [facility] Advanced Treatment Center [address] [phone] Case Samuel MD [address] [place] [address], [address] [place] [address] 10/30/2024 11:30 AM CDT Lab [facility] Cancer [address] [phone] Case Samuel MD [address] [place] [address], [address] [place] [address] 10/30/2024 12:00 PM CDT Oncology Visit [facility] Cancer [address] [phone] Case Samuel MD 420 [facility] 484, RO[address] [place], [place] 6[address] documented as of this encounter Goals Goal [...] testing is available if warranted by ordering [id number], HCG Quantitative . Urine MID-STREAM URINE SPECIMEN / Unknown Non-blood Collection / Unknown 07/26/2024 9:50 PM CDT 07/26/2024 10:12 PM CDT Abdelrahman Goddard MD LAB - URINE ORDERABLES Final R esult U [facility] [place] [facility] [address] [facility] [address] Building, Room 3-580 [place] [address] documented in this encounter [...] SOFIA) documented in this encounter Care Teams Aviation Manager Relationship Specialty Start Date End Date Veronica Joseph MD [address] [place] [address] PCP - General Family Medicine 06/18/24 Mor Ramsey Medical Student 04/03/24 Case Samuel MD [address] [place] [address], [address] [place] [address] Assigned Pediatric Specialist Provider 05/18/24 Juhi Benson, SOFIA Specialty Licensed Direct Entry Midwife Hematology & Oncology 05/29/24 documented as of this encounter
--- OUTSIDE RECORDS SUMMARY | 2024-07-28 21:34 | XMS_ITS | Encounter Summary ---
Author Organization [facility] Address [address] [place] [address]. [place] [address] Care Team Providers Care Field Software Engineer Name Role Phone RoxyElvirac Unavailable Unavailable Case Samuel MD Unavailable [phone] Juhi Benson RN Unavailable Unavailable Veronica Joseph MD Primary Care Provider [phone] Reason for Visit * Reason Comments Sickle Cell Pain Crisis Chest Pain Encounter Details Date Type Department Care Team ([facility] st Contact Info) Description 07/27/2024 7:12 PM CDT - 07/27/2024 11:16 PM CDT Emergency [facility] Emergency Department [address] [place] [phone] Payal Arriaga, [address] [address] Sickle cell pain crisis (H); Chest pain, [...] on file 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 have your family member watch video on how to use/read information sheet). every 2-3 minutes until assistance arrives 2 each 06/06/2024 documented as of this encounter ED Notes * Hortencia Osman RN - 07/27/2024 7:33 PM CDT Bed: [facility] Expected date: Expected time: Means of arrival: Comments: 1 * Payal Arriaga DO - 07/27/2024 7:20 PM CDT Images from the original note were not included. 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 No other complaints. documented in this encounter Plan of Treatment Upcoming Encounters Date Type Department Care Team (Late st Contact Info) Description 08/07/2024 7:[address] [facility] Cancer [address] [phone] Case Samuel MD [address] [place] [address], ROOM [address] [address] 08/08/2024 8:00 AM CDT Appointment [facility] Advanced Treatment [address] [phone] Case Samuel MD [address] [place] [address], ROOM [address] [address] 10/30/2024 11:[address] [facility] Cancer [address] [phone] Case Samuel MD [address] [place] [address], ROOM [address] [address] 10/30/2024 12:00 PM CDT Oncology Visit [facility] Cancer [address] [phone] Case Samuel MD [address] [place] [place] [address], ROOM [address] [address] documented as of this encounter Goals Goal [...] Atrial Rate 81 BPM RADIOLOG Y RESULTS MA Interval 144 ms RADIOLOG Y RESULTS QRS Duration 74 ms RADIOLO GY RESULTS QT 358 ms RADIOLOGY RESULTS QTc 415 ms RADIOLOGY RESULTS P [place] 34 degrees RADIOLOGY RESULTS R AXIS 68 degrees RADIOLOGY RESULTS T [place] 45 degrees RADIOLOGY RESULTS Interpretation ECG Sinus rhythm Normal ECG Unconfirmed report - interpretation of this ECG is computer generated - see medical record for final interpretation Confirmed by - EMERGENCY ROOM, PHYSICIAN ([id number]), clinical editor NEGRA ASTORGA ([id number]) on 07/28/2024 6:48:17 AM RADIOLOGY RESULTS 07/27/2024 [...] Lavinia Ozuna RN)2119 (Stopped - Provider: Lavinia Ozuna RN) PRN Medication Order 07/25/2024 07/26/2024 07/27/2024 hydromorphone (DILAUDID) injection 2 mg (COMPLETED) 2 mg, Intravenous, EVERY 1 HOUR PRN, severe pain, Starting on Citlali 07/27/24 at 1921, For 3 doses 2008 ($Given - Provi nas: aLvinia Ozuna RN)2119 ($Given - Provider: Tato Franks [...] RN) documented in this encounter Care Teams Field Software Engineer Relationship Specialty Start Date End Date Veronica Joseph MD [address] [place] [address] PCP - General Family Medicine 06/18/24 Mor Ramsey Medical Student 04/03/24 Case Samuel MD [address] [place] [address], [address] [place] [address] Assigned Pediatric Specialist Provider 05/18/24 Juhi Benson, RN Specialty Wall Insulation Sprayer Hematology & Oncology 05/29/24 documented as of this encounter
--- OUTSIDE RECORDS SUMMARY | 2024-07-28 21:35 | XMS_ITS | Encounter Summary ---
Author Organization [facility] Address [address] [place] [address]. 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 Gender Identity Not on file Sexual Orientation Not on file documented as of this encounter Plan of Treatment Upcoming Encounters Date Type Department Care Team (Late st Contact Info) Description 08/07/2024 7:15 AM CDT Lab [facility] Cancer [address] [phone] Case Samuel MD [address] [place] [address], RO[address] [address] 08/08/2024 8:00 AM CDT Appointment [facility] Advanced Treatment [address] [phone] Case Samuel MD [address] [place] [address], RO[address] [address] 10/30/2024 11:30 AM CDT Lab [facility] Cancer [address] [phone] Case Samuel MD [address] [place] [address], RO[address] [address] 10/30/2024 12:00 PM CDT Oncology Visit [facility] Cancer [address] [phone] Case Samuel MD [address] [facility] 484, [address] [place] [address] documented as of this encounter Goals Goal [...] filedocumented in this encounter Care Teams Molder Pipe Covering Relationship Specialty Start Date End Date Veronica Joseph MD [address] [place] [address] PCP - General Family Medicine 06/18/24 Mor Ramsey Medical Student 04/03/24 Case Samuel MD [address] [facility] 484, [address] [place] [address] Assigned Pediatric Specialist Provider 05/18/24 Juhi Benson, RN Specialty Cash Person Hematology & Oncology 05/29/24 documented as of this encounter
--- OUTSIDE RECORDS SUMMARY | 2024-07-28 21:35 | XMS_ITS | Encounter Summary ---
Author Organization [facility] Address [address] [place] [address]. [place] [address] Care Team Providers Care Major Donor Coordinator Name Role Phone RoxyElvirac Unavailable Unavailable Case Samuel MD Unavailable [phone] Juhi Benson RN Unavailable Unavailable Veronica Joseph MD Primary Care Provider [phone] Reason for Visit * Reason Comments Sickle Cell Pain Crisis * Auth/Cert Specialty Diagnoses / Procedures Referred By Shahid pendleton Referred To Contact EMERGENCY MEDICINE Diagnoses Acute pulmonary embolism without acute cor pulmonale, unspecified pulmonary embolism type (H) Sickle cell pain crisis (H) [facility] Emergency Department [address] [place] [address] Phone: tel: Referral ID Status Reason Start Date Expiration Date Visits Re quested Visits Authorized [id number] 1 1 Encounter Details Date Type Department Care Team (Latest Contact Info) Description 06/26/2024 1:51 PM GROUNDSKEE[facility] PORTER - 06/29/2024 11:11 AM [facility] Hospital Encounter [facility] Emergency Department [address] [place] [phone] Jayden Adhikari MD [address] [place] [address] Esdras Markham MD [address] [place] [address] Alex Gillespie MD [address] [place] [id number] Acute pulmonary embolism without acute cor [...] on file Legal Sex Female 8:25 AM GROUNDSKEEPER P[facility]TER Gender Identity Not on file Sexual Orientation Not on file documented as of this encounter Last Filed Vital Signs Vital Sign Reading Time Taken Comments Blood Pressure 97/51 06/29/2024 9:46 AM GR[facility]KEE[facility]TER Pulse 62 06/29/2024 9:46 AM [facility]KEE[facility] Temperature 36.8 C (98.2 F) 06/29/2024 9:46 AM [facility]EE[facility] Respiratory Rate 18 06/29/2024 9:46 AM [facility]KEE[facility] Oxygen Saturation 95% 06/29/2024 9:46 AM [facility]EE[facility] Inhaled Oxygen Concentration - - Weight - - Height - - Body Mass Index - - documented in this encounter Discharge Summaries * Rl Elias MD - 06/29/2024 10:11 AM CST [facility] Discharge Summary - Medicine & Pediatrics Date [...] negative. Hemoglobin stable through admission. - Continue TOBACCO WAREHOUSE AGENT hydroxyurea 1000mg BID - Continue TOBACCO WAREHOUSE AGENT folic acid 1mg daily - Continue [...] Hematology (whichever comes first) #Anxiety - Continue TOBACCO WAREHOUSE AGENT fluoxetine 10 mg daily Consultations This Hospital Stay PHARMACY IP CONSULT HEMATOLOGY ADULT IP CONSULT CARE MANAGEMENT / SOCIAL WORK IP CONSULT PHARMACY LIAISON FOR MEDICATION COVERAGE CONSULT PHARMACY LIAISON FOR MEDICATION COVERAGE CONSULT SOCIAL WORK IP CONSULT PHARMACY LIAISON FOR MEDICATION COVERAGE CONSULT Code Status Full Code The patient was discussed with Dr. Gillespie. MD Ricardo LANGLEY [address] [place] [address] EMERGENCY DEPARTMENT [address] [facility] [id number] Physical Exam Vital Signs: Temp: 98.2 ??F [...] and I agree with the findings. NINOSKA QUNA MD Echocardiogram Complete Value LVEF 55-60% Narrative [id number]^BRITTANEY^JERMAINE [facility] [address] [place] [address] Name: LEW HERNÁNDEZ : 1995 Study Date: 06/27/2024 01:58 PM Age: 29 yrs Gender: Female Patient Location: [facility] Reason For Study: Pulmonary Emboli Ordering [...] (H) naloxone (NARCAN) 4 MG/0.1ML nasal spray Middlebranch 1 spray (4 mg) into one nostril [...] Alex Gillespie MD at 06/29/2024 12:30 PM GROUNDSKEE[facility] P[facility]TER NDSKEEPER PORTER NDSKEEPER PORTER Associated attestation - Alex Gillespie MD - 06/29/2024 12:30 PM [facility] Physician Attestation I saw and evaluated this [...] 05/01/2024 naloxone (NARCAN) 4 MG/0.1ML nasal spray Middlebranch 1 spray (4 mg) into one nostril [...] with POC. Notify primary team with changes. NDSKEEPER PORTER * Rl Elias MD - 06/28/2024 10:47 AM CST [facility] Progress Note - Medicine Service, [facility] TEAM 1 Date of Admission: [...] coverage, has 30 day free trial through [facility] #Sickle cell acute pain crisis #Sickle [...] senna PRN for supportive measures - Continue TOBACCO WAREHOUSE AGENT hydroxyurea 1000mg BID - Continue TOBACCO WAREHOUSE AGENT folic acid 1mg daily - Monitoring [...] melatonin 3 mg PRN #Anxiety - Continue TOBACCO WAREHOUSE AGENT fluoxetine 10 mg daily - Benadryl [...] Gillespie . RL ELIAS MD Medicine Service, [facility] TEAM 1 [facility] Securely message with [employer] (more info) Text page via [facility] Paging/Directory See signed in provider for up [...] Echocardiogram Complete Result Value LVEF 55-60% Narrative [id number]^BRITTANEY^JERMAINE [facility] Echocardiography Laboratory [address] [place] [address] Name: LEW HERNÁNDEZ : 1995 Study Date: 06/27/2024 01:58 PM Age: 29 yrs Gender: Female Patient Location: [facility] Reason For Study: Pulmonary Emboli Ordering [...] Alex Gillespie MD at 06/28/2024 12:23 PM GROUNDSKEEPER P[facility]TER NDSKEEPER PORTER NDSKEEPER PORTER Associated attestation - Alex Gillespie MD - 06/28/2024 12:23 PM [facility] Physician Attestation I saw this patient with [...] status and report changes to treatment team. NDSKEEPER PORTER * Rl Elias MD - 06/27/2024 11:41 AM CST [facility] Progress Note - Medicine Service, [facility] TEAM 1 Date of Admission: [...] senna PRN for supportive measures - Continue TOBACCO WAREHOUSE AGENT hydroxyurea 1000mg BID - Continue TOBACCO WAREHOUSE AGENT folic acid 1mg daily - Monitoring CBC w/diff, LDH, reticulocyte count, and LDH daily - Type & screened - Continue topical diclofenac, lidocaine, icy hot PRN #Leukocytosis #Insomnia - continue melatonin 3 mg PRN #Anxiety - Continue TOBACCO WAREHOUSE AGENT fluoxetine 10 mg daily - Benadryl [...] Gillespie . RL ELIAS MD Medicine Service, [facility] TEAM [address] [place] [address] Securely message with [employer] (more info) Text page via [facility] Paging/Directory See signed in provider for up [...] Alex Gillespie MD at 06/27/2024 2:25 PM GROUNDSKEEPER PORTER NDSKEEPER PORTER NDSKEEPER PORTER Associated attestation - Alex Gillespie MD - 06/27/2024 2:25 PM [facility]EE[facility]TER Physician Attestation I saw this patient with [...] Quispe MD - 06/26/2024 5:21 PM CST [facility] History and Physical - Medicine Service, [facility] TEAM Date of Admission: 06/26/2024 [...] 10 mg qdaily at home. - Continue TOBACCO WAREHOUSE AGENT fluoxetine - Ordered hydroxyzine 25-50 mg q6h PRN - Advised patient that there are resources available if she would like to talk more about her anxiety (Behavioral Health, Dispensing Lead, etc). #Insomnia - Ordered melatonin 3 mg [...] Markham . Jermaine Quispe MD Medicine Service, 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 [...] nasal spray Self, Other No No Sig: Middlebranch 1 spray (4 mg) into one nostril [...] Narrative EXAM: XR CHEST 2 VIEWS LOCATION: [facility] DATE: 06/25/2024 INDICATION: Chest pain, [...] Esdras Markham MD at 06/26/2024 11:25 PM GROUNDSKEEPER PORTER NDSKEEPER PORTER NDSKEEPER PORTER Associated attestation - Esdras Markham MD - 06/26/2024 11:25 PM [facility]EE[facility]TER Physician Attestation I saw this patient with [...] Communication Assessment Patient's communication style: spoken language (Cameroonian or Bilingual) Cognitive Cognitive/Neuro/Behavioral: WDL Living Environment: [...] Dependency Status:not discussed Values/Beliefs: Spiritual, Cultural Beliefs, Islam Practices, Values that affect care: no Discussed [...] Care management signing off. Sandy Bertrand RN, [facility] Inpatient Care Management - FLOAT NDSKEEPER PORTER * Bernadette Boggs - 06/29/2024 8:55 AM CSTAssociated Order(s): PHARMACY LIAISON FOR MEDICATION COVERAGE CONSULT; PHARMACY LIAISON FOR MEDICATION COVERAGE CONSULT Summary: Rx coverage for Eliquis Discharge Pharmacy Test Claim Patient's commercial [place] plan covers Eliquis with an expected monthly copay of $0. Test Claim Copay Eliquis 0.00 Bernadette Boggs [facility] Pharmacy Liaison (A - L) Available on [employer] Disclaimer: Pharmacy test claims are extimates and may not reflect final costs. Suggested alternatives aim to be cost-effective but may not be therapeutically equivalent as this consult is informational and does not constitute medical advice. Clinical decisions should be made by qualified healthcare providers. NDSKEEPER PORTER NDSKEEPER PORTER NDSKEEPER PORTER NDSKEEPER PORTER * Bernadette Boggs - 06/27/2024 3:13 PM CSTAssociated Order(s): PHARMACY LIAISON FOR MEDICATION COVERAGE CONSULT Summary: Rx Coverage for Xarelto Discharge Pharmacy Test Claim Patient's commercial [place] plan covers xarelto with an expected monthly copay of $0. Test Claim Copay Xarelto 0.00 Bernadette Boggs [facility] Pharmacy Liaison (A - L) Available on [employer] Disclaimer: Pharmacy test claims are extimates and may not reflect final costs. Suggested alternatives aim to be cost-effective but may not be therapeutically equivalent as this consult is informational and does not constitute medical advice. Clinical decisions should be made by qualified healthcare providers. NDSKEEPER PORTER NDSKEEPER PORTER * Carmen Aviles PA-C - 06/27/2024 9:03 AM CSTAssociated Order(s): HEMATOLOGY ADULT IP CONSULT Images from the original note were not included. Hematology Consult Note Date of Service: 06/27/2024 Patient: Lew Hernández Admission Date: 06/26/2024 Hospital Day # Hospital Day: 2 Primary Outpatient Sponge Buffer: Dr. Evy Samuel Reason for Consult: pt [...] documentation time. Jenise Aviles PA-C Benign Hematology [phone] History of Present Illness: Lew Hernández is [...] Currently Drug use: Never Social History Narrative Wbsp-dd-mubp mom. Recently moved to [place] from [place], [place]. She is 1 of 9 [...] Socially Integrated (03/28/2024) [facility] Social Connections Do you often feel [...] 11 naloxone (NARCAN) 4 MG/0.1ML nasal spray Middlebranch 1 spray (4 mg) into one nostril [...] Octavio Rivera MD at 06/27/2024 4:18 PM GROUNDSKEEPER PORTER NDSKEEPER PORTER NDSKEEPER PORTER Associated attestation - Octavio Rivera MD - 06/27/2024 4:18 PM GROUNDSKEEPER PORTER Physician Attestation I saw and evaluated Lew Hernández as part of a shared DRAFTER [employer]OGRAPH[employer]/PA visit. I personally reviewed the vital signs, [...] indwelling. We will coordinate follow-up with outpatient tourist home keeper. Counseling and/or coordination of care performed by me: Rounds 45 MINUTES SPENT BY ME on the date of service doing chart review, history, exam, documentation & further activities per the note. Octavio Rivera MD Date of Service (when I saw the patient): 06/27/24 This note was completed in part using dictation via the [employer] voice recognition software. Some word and grammatical [...] WDL WDL Cognitive/Neuro/Behavioral WDL Cognitive/Neuro/Behavioral WDL WDL NDSKEEPER PORTER * Tammi Dave RN - 06/26/2024 1:51 PM CST Bed: [facility]- Expected date: Expected time: Means of arrival: Comments: HWY appropriate NDSKEEPER PORTER * Jayden Adhikari MD - 06/26/2024 1:45 PM CST Images from the original note were not included. 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 Procedure Abnormality Status --------- ------ CBC with platelets and d...[[id number]] Abnormal Final result Please view results for these tests on the individual orders. ABO/Rh type and screen Status: None Narrative The following orders were created for panel order ABO/Rh type and screen. Procedure Abnormality Status --------- ------ Adult Type and Screen[[id number]] Final result Please view results for these tests on the individual orders. Results for orders placed or performed during the hospital encounter of 06/25/24 XR Chest 2 Views Status: None Narrative EXAM: XR CHEST 2 VIEWS LOCATION: [facility] DATE: 06/25/2024 INDICATION: Chest pain, [...] Negative Ketones Urine Negative Negative mg/dL Specific [place] Urine 1.009 1.003 - 1.035 Blood Urine [...] Rate 87 BPM Atrial Rate 87 BPM SD Interval 162 ms QRS Duration 86 ms QT 362 ms QTc 435 ms P [place] 54 degrees R AXIS 84 degrees T [place] 70 degrees Interpretation ECG Sinus rhythm Normal ECG Unconfirmed report - interpretation of this ECG is computer generated - see medical record for final interpretation Confirmed by - EMERGENCY ROOM, PHYSICIAN ([id number]), dictionary editor Nivia Willson ([id number]) on 06/25/2024 10:56:42 PM CBC with platelets differential Status: Abnormal Narrative The following orders were created for panel order CBC with platelets differential. Procedure Abnormality Status --------- ------ CBC with platelets and d...[[id number]] Abnormal Final result Please view results for [...] 55 mL (55 mLs Intravenous $Given 06/26/24 7303) sodium chloride (PF) 0.9% PF flush 82 mL (82 mLs Intravenous $Given 06/26/24 9493) heparin ANTICOAGULANT Loading dose for HIGH INTENSITY [...] POS Antibody Screen Negative SPECIMEN EXPIRATION DATE [id number] BLOOD CULTURE BLOOD CULTURE ABO/RH TYPE AND [...] type (H) Sickle cell pain crisis (H) [facility] EMERGENCY DEPARTMENT 06/26/2024 Jayden Adhikari MD 06/26/24 1704 NDSKEEPER PORTER documented in this encounter Miscellaneous Notes * Plan of Care - Sandy Bertrand RN - 06/29/2024 10:54 AM CST Goal Outcome Evaluation: Plan of Care Reviewed With: patient Overall Patient Progress: improvingOverall Patient Progress: improving Outcome Evaluation: Discharge home today Sandy Bertrand RN, [facility] Inpatient Care Management - FLOAT NDSKEEPER PORTER * Plan of Care - Maki Schultz [...] Pt adequate for discharge. Verbalized all instructions. NDSKEEPER PORTER * Plan of Care - Lavinia Cruz RN - 06/29/2024 7:05 AM CST RN [phone] Vitals: Afebrile. VSS on RA Neuro: A&Ox4 [...] changes in patient status. Lavinia Cruz RN NDSKEEPER PORTER * Plan of Care - Sathish Goetz [...] (36.8 ??C) (Oral) Resp 20 SpO2 98% NDSKEEPER PORTER * Plan of Care - Sathish Goetz [...] (36.8 ??C) (Oral) Resp 20 SpO2 98% NDSKEEPER PORTER * Medication Scribe - Admission Medication History - Yennifer Edwards - 06/27/2024 4:32 AM CST Medication Scribe Admission Medication History Admission medication history is complete. The information provided in this note is only as accurateas the sources available at the time of the update. Information Source(s): Patient and CareEverywhere/SureScripts via in-person Pertinent Information: per pt+CE, pt reported taking medications on TOBACCO WAREHOUSE AGENT medication list as directed Changes made to TOBACCO WAREHOUSE AGENT medication list: Added: None Deleted: None Changed: None Allergies reviewed with patient and updates made in EHR: yes Medication History Completed By: Yennifer Edwards 06/27/2024 4:32 AM TOBACCO WAREHOUSE AGENT Med List Medication Sig Last Dose/Taking [...] 06/26/2024 naloxone (NARCAN) 4 MG/0.1ML nasal spray Middlebranch 1 spray (4 mg) into one nostril alternating nostrilsas needed for opioid reversal (for opiate overdose if not breathing and unconscious. have your family member watch video on how to use/read information sheet). every 2-3 minutes until assistance arrives Taking As Needed NDSKEEPER PORTER * Plan of Care - Gordo Sykes [...] Progress: no changeOverall Patient Progress: no change NDSKEEPER PORTER * Provider Notification - Gordo Sykes, RN - 06/27/2024 3:35 AM GROUNDSKEEPER PORTER Jovan, I've messaged your internet network specialist a couple of times starting at [...] Or what are her diet orders? Thanks. NDSKEEPER PORTER * Provider Notification - Gordo Sykes RN - 06/27/2024 1:27 AM GROUNDSKEEPER PORTER Also, pt has orders for NPO. Pt stated that she thinks that this has passed and the order hasn't been updated. Previous nurse told me that pt ordered and ate dinner (before my shift). Is pt NPO? Or what are her diet orders? Thanks. NDSKEEPER PORTER * Provider Notification - Gordo Sykes RN - 06/27/2024 1:13 AM GROUNDSKEEPER PORTER Hello, pt refusing a PIV. Pt only has L port that is currently running a heparin drip. Pt has orders for continuous LR at 100mL/hour, I am unable to run this at this time due to limited access. Is fedey to hold off on this? Or what would you advise? Thanks. NDSKEEPER PORTER NDSKEEPER PORTER * Plan of Care - Phuong Ng RN - 06/26/2024 11:46 PM CST Shift: [id number] VS: Blood pressure 103/68, pulse 79, temperature [...] No significant changes this shift, continue POC. NDSKEEPER PORTER documented in this encounter Plan of Treatment Upcoming Encounters Date Type Department Care Team (Late st Contact Info) Description 08/07/2024 7:15 AM CDT Lab [facility] Cancer [address] [phone] Case Samuel MD [address] [place] [address], ROOM [address] [id number] 08/08/2024 8:00 AM CDT Appointment [facility] Advanced Treatment [address] [address] Case Samuel MD [address] [place] [address], RO[address] [place], [place] [id number] 10/30/2024 11:30 AM CDT Lab [facility] Cancer [address] [phone] Case Samuel MD [address] [place] [address], RO[address] [place], [place] [id number] 10/30/2024 12:00 PM CDT Oncology Visit [facility] Cancer [address] [address] Case Samuel MD [address] [place] [address], [address] [place] [id number] documented as of this encounter Goals Goal [...] Comments EXTRA TUBE STAT 06/29/2024 6:05 AM GROUNDSKEEPER PORTER EXTRA PURPLE TOP TUBE STAT 06/29/2024 6:05 AM GROUNDSKEEPER PORTER CBC WITH PLATELETS AND DIFFERENTIAL STAT 06/29/2024 6:05 AM GROUNDSKEEPER PORTER CBC WITH PLATELETS & DIFFERENTIAL STAT 06/29/2024 6:05 AM GROUNDSKEEPER PORTER COMPREHENSIVE METABOLIC PANEL STAT 06/29/2024 6:04 AM GROUNDSKEEPER PORTER RBC AND PLATELET MORPHOLOGY STAT 06/28/2024 6:06 AM GROUNDSKEEPER PORTER CBC WITH PLATELETS AND DIFFERENTIAL STAT 06/28/2024 6:06 AM GROUNDSKEEPER PORTER LACTATE DEHYDROGENASE STAT 06/28/2024 6:06 AM GROUNDSKEEPER PORTER CBC WITH PLATELETS & DIFFERENTIAL STAT 06/28/2024 6:06 AM GROUNDSKEEPER PORTER RETICULOCYTE COUNT STAT 06/28/2024 6: 06 AM GROUNDSKEEPER PORTER COMPREHENSIVE METABOLIC PANEL STAT 06/28/2024 6:06 AM GROUNDSKEEPER PORTER BILIRUBIN DIRECT Add-On 06/28/2024 6:06 AM GROUNDSKEEPER PORTER HEPARIN UNFRACTIONATED ANTI XA LEVEL STAT 06/28/2024 1:57 AM GROUNDSKEEPER PORTER HEPARIN UNFRACTIONATED ANTI XA LEVEL STAT 06/27/2024 7:14 PM GROUNDSKEEPER PORTER EXTRA TUBE STAT 06/27/2024 5:55 PM GROUNDSKEEPER PORTER EXTRA GREEN TOP (LITHIUM HEPARIN) TUBE STAT 06/27/2024 5:55 PM GROUNDSKEEPER PORTER ECHO COMPLETE Routine 06/27/2024 2:33 PM GROUNDSKEEPER PORTER HEPARIN UNFRACTIONATED ANTI XA LEVEL STAT 06/27/2024 12:39 PM GROUNDSKEEPER PORTER US LOWER EXTREMITY VENOUS DUPLEX BILATERAL STAT 06/27/2024 11:21 AM GROUNDSKEEPER PORTER INFLUENZA A/B, RSV AND SARS-COV2 PCR STAT 06/27/2024 8:43 AM GROUNDSKEEPER PORTER ROUTINE UA WITH MICROSCOPIC REFLEX TO CULTURE STAT 06/27/2024 8:12 AM GROUNDSKEEPER PORTER RBC AND PLATELET MORPHOLOGY STAT 06/27/2024 5:57 AM GROUNDSKEEPER PORTER CBC WITH PLATELETS AND DIFFERENTIAL Add-On 06/27/2024 5:57 AM GROUNDSKEEPER PORTER TYPE AND SCREEN, ADULT Routine 5:57 AM GROUNDSKEEPER PORTER CBC WITH PLATELETS & DIFFERENTIAL Add-On 06/27/2024 5:57 AM GROUNDSKEEPER PORTER RETICULOCYTE COUNT Add-On 06/27/2024 5: 57 AM GROUNDSKEEPER PORTER HEPATIC FUNCTION PANEL Add-On 5:57 AM GROUNDSKEEPER PORTER ABO/RH TYPE AND SCREEN Add-On 5:57 AM GROUNDSKEEPER PORTER BASIC METABOLIC PANEL STAT 06/27/2024 5:57 AM GROUNDSKEEPER PORTER CBC WITH PLATELETS STAT 06/27/2024 5: 57 AM GROUNDSKEEPER PORTER HEPARIN UNFRACTIONATED ANTI XA LEVEL STAT 06/27/2024 5:56 AM GROUNDSKEEPER PORTER HEPARIN UNFRACTIONATED ANTI XA LEVEL STAT 06/26/2024 10:46 PM GROUNDSKEEPER PORTER ERYTHROCYTE SEDIMENTATION RATE AUTO STAT 06/26/2024 6:46 PM GROUNDSKEEPER PORTER BLOOD CULTURE STAT 06/26/2024 6:46 PM GROUNDSKEEPER PORTER BLOOD CULTURE STAT 06/26/2024 6:46 PM GROUNDSKEEPER PORTER EKG 12-LEAD, TRACING ONLY STAT 06/26/2024 5:[address] CHEST PULMONARY EMBOLISM W CONTRAST STAT 06/26/2024 4:15 PM GROUNDSKEEPER PORTER XR CHEST 2 VIEWS STAT 06/26/2024 3:13 PM GROUNDSKEEPER PORTER CBC WITH PLATELETS AND DIFFERENTIAL STAT 06/26/2024 2:42 PM GROUNDSKEEPER PORTER TYPE AND SCREEN, ADULT STAT 2:42 PM GROUNDSKEEPER PORTER TROPONIN T, HIGH SENSITIVITY STAT 06/26/2024 2:42 PM GROUNDSKEEPER PORTER PROCALCITONIN STAT 06/26/2024 2:42 PM GROUNDSKEEPER PORTER CBC WITH PLATELETS & DIFFERENTIAL STAT 06/26/2024 2:42 PM GROUNDSKEEPER PORTER HCG QUALITATIVE STAT 06/26/2024 2:42 PM GROUNDSKEEPER PORTER D DIMER QUANTITATIVE STAT 06/26/2024 2:42 PM GROUNDSKEEPER PORTER CRP INFLAMMATION Add-On 06/26/2024 2:42 PM GROUNDSKEEPER PORTER ABO/RH TYPE AND SCREEN STAT 2:42 PM GROUNDSKEEPER PORTER BASIC METABOLIC PANEL STAT 06/26/2024 2:42 PM GROUNDSKEEPER PORTER documented in this encounter Results * Extra Purple Top Tube (06/29/2024 6:05 AM GROUNDSKEEPER PORTER) Hold Specimen JIC 06/29/2024 7:31 AM GROUNDSKEEPER PORTER [facility] Blood ARTERIAL LINE / Unknown IVAD (Port) / Unknown 06/29/2024 6:05 AM GROUNDSKEEPER PORTER 06/29/2024 6:19 AM GROUNDSKEEPER PORTER us Alex Gillespie MD LAB - BLOOD ORDERABLES Final Re sult [facility] [place] [facility] [address] [facility], Room [address] [phone] * (ABNORMAL) CBC with platelets and differential (06/29/2024 6:05 AM GROUNDSKEEPER PORTER) WBC Count 12.3(H) 4.0 - 11.0 10e3/uL 06/29/2024 6:30 AM GROUNDSKEEPER PORTER [facility] RBC Count 2.60(L) 3.80 - 5.20 10e6/uL 06/29/2024 6:30 AM GROUNDSKEEPER PORTER [facility] Hemoglobin 8.5(L) 11.7 - 15.7 g/dL 06/29/2024 6:30 AM GROUNDSKEEPER PORTER [facility] Hematocrit 25.5(L) 35.0 - 47.0 % 06/29/2024 6:30 AM GROUNDSKEEPER PORTER [facility] MCV 98 78 - 100 fL 06/29/2024 6:30 AM GROUNDSKEEPER PORTER [facility] MCH 32.7 26.5 - 33.0 pg 06/29/2024 6:30 AM GROUNDSKEEPER PORTER [facility] MCHC 33.3 31.5 - 36.5 g/dL 06/29/2024 6:30 AM GROUNDSKEEPER PORTER [facility] RDW 17.9(H) 10.0 - 15.0 % 06/29/2024 6:30 AM GROUNDSKEEPER POR[facility] Platelet Count 438 150 - 450 10e3/uL 06/29/2024 6:30 AM GROUNDSKEEPER PORTER [facility] % Neutrophils 62 % 06/29/2024 6:30 AM GROUNDSKEEPER POR[facility] % Lymphocytes 25 % 06/29/2024 6:30 AM GR[facility]KEE[facility] % Monocytes 9 % 06/29/2024 6:30 AM GR[facility] % Eosinophils 3 % 06/29/2024 6:30 AM GR[facility] % Basophils 1 % 06/29/2024 6:30 AM GR[facility] % Immature Granulocytes 0 % 06/29/2024 6:30 AM GROUNDSKEEPER PORTER [facility] NRBCs per 100 WBC 1(H) <1 /100 025 6:30 AM GROUNDSKEEPER PORTER [facility] Absolute Neutrophils 7.6 1.6 - 8.3 10e3/uL 06/29/2024 6:30 AM GROUNDSKEEPER POR[facility] Absolute Lymphocytes 3.1 0.8 - 5.3 10e3/uL 06/29/2024 6:30 AM GR[facility]DSKEE[facility] P[facility] Absolute Monocytes 1.1 0.0 - 1.3 10e3/uL 06/29/2024 6:30 AM GROUNDSKEEPER PORTER [facility] Absolute Eosinophils 0.4 0.0 - 0.7 10e3/uL 06/29/2024 6:30 AM [facility] Absolute Basophils 0.1 0.0 - 0.2 10e3/uL 06/29/2024 6:30 AM [facility] Absolute Immature Granulocytes 0.0 <=0.4 10e3/uL 06/29/2024 6:30 AM [facility] Absolute NRBCs 0.1 10e3/uL 06/29/2024 6:30 AM [facility] Blood ARTERIAL LINE / Unknown IVAD (Port) / Unknown 06/29/2024 6:05 AM [facility] 06/29/2024 6:17 AM [facility] us Rl Elias MD LAB - BLOOD ORDER SYD Final Result [facility] [place] Core Lab [address] [facility], [address] [place] [address], [facility] * (ABNORMAL) Comprehensive metabolic panel (06/29/2024 6:04 AM [facility]) Sodium 132(L) 135 - 145 mmol/L 06/29/2024 6:51 AM [facility] Potassium 4.6 3.4 - 5.3 mmol/L 06/29/2024 6:51 AM [facility] Carbon Dioxide (CO2) 21(L) 22 - 29 mmol/L 06/29/2024 6:51 AM [facility] Anion Gap 9 7 - 15 mmol/L 06/29/2024 6:51 AM [facility] Urea Nitrogen 14.3 6.0 - 20.0 mg/dL 06/29/2024 6:51 AM [facility] Creatinine 0.70 0.51 - 0.95 mg/dL 06/29/2024 6:51 AM [facility] GFR Estimate >90 >60 mL/min/1.7 3m2 06/29/2024 6:51 AM [facility] Comment:eGFR calculated usin g 2020 CKD-EPI equation. Calcium 8.9 8.8 - 10.4 mg/dL 06/29/2024 6:51 AM [facility] Chloride 102 98 - 107 mmol/L 06/29/2024 6:51 AM [facility] Glucose 98 70 - 99 mg/dL 06/29/2024 6:51 AM [facility] Alkaline Phosphatase 106 40 - 150 U/L 06/29/2024 6:51 AM [facility] AST 49(H) 0 - 45 U/L 06/29/2024 6:51 AM [facility] ALT 44 0 - 50 U/L 06/29/2024 6:51 AM [facility] Protein Total 7.5 6.4 - 8.3 g/dL 06/29/2024 6:51 AM [facility] Albumin 4.1 3.5 - 5.2 g/dL 06/29/2024 6:51 AM [facility] Bilirubin Total 1.6(H) <=1.2 mg/dL 06/29/2024 6:51 AM [facility] Blood ARTERIAL LINE / Unknown IVAD (Port) / Unknown 06/29/2024 6:04 AM [facility] 06/29/2024 6:19 AM [facility] us Rl Elias MD LAB - BLOOD ORDER SYD Final Result U [facility] [place] Core Lab [address] [facility], [address] [id number] [place] [address] * (ABNORMAL) Bilirubin direct (06/28/2024 6:06 AM [facility]) Pathologist [facility] Bilirubin Direct 0.53(H) 0.00 - 0.30 mg/dL 06/28/2024 9:50 AM [facility] Blood VENOUS LINE / Unknown Venipuncture / Unknown 06/28/2024 6:06 AM [facility] 06/28/2024 6:22 AM [facility] Rl Elias MD LAB - BLOOD ORDER SYD Final Result Performing Organization Address City/[facility]/ZIP Co de Phone Number LABORATORY [facility] Core Lab [address] [facility], [address] * (ABNORMAL) RBC and Platelet Morphology (06/28/2024 6:06 AM [facility]) Pathologist [facility] RBC Morphology Confirmed RBC Indices 06/28/2024 7:15 AM [facility] Platelet Assessment Automated Count Confirmed. Platelet morphology is normal. Automated Count Confirmed. Platelet morphology is normal. 06/28/2024 7:15 AM [facility] Sickle Cells Slight(A) None Seen 06/28/2024 7:15 AM [facility] Target Cells Moderate(A) None Seen 06/28/2024 7:15 AM [facility] Blood VENOUS LINE / Unknown Venipuncture / Unknown 06/28/2024 6:06 AM [facility] 06/28/2024 6:22 AM [facility] Rl Elias MD LAB - BLOOD ORDER SYD Final Result [facility] [place] Core Lab [address] [facility], [address] [phone] * (ABNORMAL) CBC with platelets and differential (06/28/2024 6:06 AM [facility]) WBC Count 15.3(H) 4.0 - 11.0 10e3/uL 06/28/2024 7:14 AM [facility] RBC Count 2.49(L) 3.80 - 5.20 10e6/uL 06/28/2024 7:14 AM [facility] Hemoglobin 8.2(L) 11.7 - 15.7 g/dL 06/28/2024 7:14 AM [facility] Hematocrit 24.0(L) 35.0 - 47.0 % 06/28/2024 7:14 AM [facility] MCV 96 78 - 100 fL 06/28/2024 7:14 AM [facility] MCH 32.9 26.5 - 33.0 pg 06/28/2024 7:14 AM [facility] MCHC 34.2 31.5 - 36.5 g/dL 06/28/2024 7:14 AM [facility] RDW 18.3(H) 10.0 - 15.0 % 06/28/2024 7:14 AM [facility] Platelet Count 401 150 - 450 10e3/uL 06/28/2024 7:14 AM [facility] % Neutrophils 46 % 06/28/2024 7:14 AM [facility] % Lymphocytes 40 % 06/28/2024 7:14 AM [facility] % Monocytes 10 % 06/28/2024 7:14 AM [facility] % Eosinophils 4 % 06/28/2024 7:14 AM [facility] % Basophils 1 % 06/28/2024 7:14 AM [facility] % Immature Granulocytes 0 % 06/28/2024 7:14 AM [facility] NRBCs per 100 WBC 1(H) <1 /100 025 7:14 AM [facility] Absolute Neutrophils 7.0 1.6 - 8.3 10e3/uL 06/28/2024 7:14 AM [facility] Absolute Lymphocytes 6.0(H) 0.8 - 5.3 10e3/uL 06/28/2024 7:14 AM [facility] Absolute Monocytes 1.5(H) 0.0 - 1.3 10e3/uL 06/28/2024 7:14 AM [facility] Absolute Eosinophils 0.5 0.0 - 0.7 10e3/uL 06/28/2024 7:14 AM [facility] Absolute Basophils 0.2 0.0 - 0.2 10e3/uL 06/28/2024 7:14 AM [facility] Absolute Immature Granulocytes 0.1 <=0.4 10e3/uL 06/28/2024 7:14 AM [facility] Absolute NRBCs 0.1 10e3/uL 06/28/2024 7:14 AM [facility] Blood VENOUS LINE / Unknown Venipuncture / Unknown 06/28/2024 6:06 AM [facility] 06/28/2024 6:22 AM [facility] Rl Elias MD LAB - BLOOD ORDER SYD Final Result Performing Organization Address City/[facility]/ZIP Co de Phone Number LABORATORY [facility] Core Lab [address] [facility], [address] * (ABNORMAL) Reticulocyte count (06/28/2024 6:06 AM [facility]) [facility] % Reticulocyte 12.7(H) 0.5 - 2.0 % 06/28/2024 6:57 AM [facility] Comment:x2 dilution Absolute Reticulocyte 0.316(H) 0.025 - 0.095 10e6/uL 06/28/2024 6:57 AM [facility] Comment:x2 dilution Blood VENOUS LINE / Unknown Venipuncture / Unknown 06/28/2024 6:06 AM [facility] 06/28/2024 6:22 AM [facility] Rl Elias MD LAB - BLOOD ORDER SYD Final Result LABORATORY [facility] [place] Core Lab [address] [facility], [address] * (ABNORMAL) Lactate Dehydrogenase (06/28/2024 6:06 AM [facility]) Lactate Dehydrogenase 451(H) 0 - 250 U/L 06/28/2024 6:51 AM [facility] Blood VENOUS LINE / Unknown Venipuncture / Unknown 06/28/2024 6:06 AM [facility] 06/28/2024 6:22 AM [facility] Rl Elias MD LAB - BLOOD ORDER SYD Final Result [facility] [place] Core Lab [address] [facility], [address] [place] [phone] * (ABNORMAL) Comprehensive metabolic panel (06/28/2024 6:06 AM [facility]) Pathologist [facility] Sodium 134(L) 135 - 145 mmol/L 06/28/2024 6:51 AM [facility] Potassium 4.6 3.4 - 5.3 mmol/L 06/28/2024 6:51 AM [facility] Carbon Dioxide (CO2) 22 22 - 29 mmol/L 06/28/2024 6:51 AM [facility] Anion Gap 7 7 - 15 mmol/L 06/28/2024 6:51 AM [facility] Urea Nitrogen 11.8 6.0 - 20.0 mg/dL 06/28/2024 6:51 AM [facility] Creatinine 0.70 0.51 - 0.95 mg/dL 06/28/2024 6:51 AM [facility] GFR Estimate >90 >60 mL/min/1.7 3m2 06/28/2024 6:51 AM [facility] Comment:eGFR calculated us2020 CKD-EPI equation. Calcium 8.9 8.8 - 10.4 mg/dL 06/28/2024 6:51 AM [facility] Chloride 105 98 - 107 mmol/L 06/28/2024 6:51 AM [facility] Glucose 88 70 - 99 mg/dL 06/28/2024 6:51 AM [facility] Alkaline Phosphatase 106 40 - 150 U/L 06/28/2024 6:51 AM [facility] AST 34 0 - 45 U/L 06/28/2024 6:51 AM [facility] ALT 33 0 - 50 U/L 06/28/2024 6:51 AM [facility] Protein Total 7.2 6.4 - 8.3 g/dL 06/28/2024 6:51 AM [facility] Albumin 4.0 3.5 - 5.2 g/dL 06/28/2024 6:51 AM [facility] Bilirubin Total 1.3(H) <=1.2 mg/dL 06/28/2024 6:51 AM [facility] Blood VENOUS LINE / Unknown Venipuncture / Unknown 06/28/2024 6:06 AM [facility] 06/28/2024 6:22 AM [facility] Rl Elias MD LAB - BLOOD ORDER SYD Final Result Performing Organization Address [facility]/ZIP Co de Phone Number U LABORATORY [facility] Core Lab [address] [facility], [address] [phone] * Heparin Unfractionated Anti Xa Level (06/28/2024 1:57 AM [facility]) [facility] Signature Anti Xa Unfractionated Heparin 0.45 For Reference Range, See Comment IU/mL 06/28/2024 2:32 AM [facility] Blood VENOUS LINE / Unknown Venipuncture / Unknown 06/28/2024 1:57 AM [facility] 06/28/2024 2:17 AM [facility] Narrative [facility] - 06/28/2024 2:32 AM [facility] Therapeutic Range: UFH: 0.25-0.50 IU/mL for low intensity dosing, 0.30-0.70 IU/mL for high intensity dosing DVT and PE. This test is not validated for other direct factor X inhibitors (e.g. rivaroxaban, apixaban, edoxaban, betrixaban, fondaparinux) and should not be used for monitoring of other medications. us Alex Gillespie MD LAB - BLOOD ORDERABLES Final Re sult [facility] [place] Core Lab [address] [facility], [address] * Heparin Unfractionated Anti Xa Level (06/27/2024 7:14 PM [facility]) [facility] Anti Xa Unfractionated Heparin 0.39 For Reference Range, See Comment IU/mL 06/27/2024 7:58 PM [facility] U [facility]ATORY Blood STRUCTURE OF RIGHT HAND / Unknown Venipuncture / Unknown 06/27/2024 7:14 PM [facility] 06/27/2024 7:21 PM [facility] Narrative [facility] - 06/27/2024 7:58 PM [facility] Therapeutic Range: UFH: 0.25-0.50 IU/mL for low intensity dosing, 0.30-0.70 IU/mL for high intensity dosing DVT and PE. This test is not validated for other direct factor X inhibitors (e.g. rivaroxaban, apixaban, edoxaban, betrixaban, fondaparinux) and should not be used for monitoring of other medications. Octavio Rivera MD LAB - BLOOD ORDERABLES Final Res ult LABORATORY [facility] [place] Core Lab [address] [facility], [address] * Extra Green Top (Calvin Heparin) Tube (06/27/2024 5:55 PM [facility]) [facility] Hold Specimen JIC 06/27/2024 8:31 PM [facility] U LABORATORY Blood STRUCTURE OF RIGHT WRIST REGION / Unknown Venipuncture / Unknown 06/27/2024 5:55 PM [facility] 06/27/2024 7:22 PM [facility] Alex Gillespie MD LAB - BLOOD ORDERABLES Final Re sult LABORATORY [facility] [place] Core Lab [address] [facility], [address] [phone] * ECHO COMPLETE (06/27/2024 2:33 PM [facility]) LVEF 55-60% CARDIOLOGY RESULTS Anatomical Region Laterality Modality Echocardiography 06/27/2024 1:58 PM [facility] Narrative 06/27/2024 2:51 PM [facility] [id number]^BRITTANEY^JERMAINE [facility] Echocardiography Laboratory [address] [place] [id number] Name: LEW HERNÁNDEZ : 1995 Study Date: 06/27/2024 01:58 PM Age: 29 yrs Gender: Female Patient Location: [facility] Reason For Study: Pulmonary Emboli Ordering [...] Procedure Note Salvador Perea MD - 06/27/2024 [id number]^BRITTANEY^JERMAINE [facility] Echocardi[facility] Laboratory [address] [place] [id number] Name: LEW HERNÁNDEZ : 1995 Study Date: 06/27/2024 01:58 PM Age: 29 yrs Gender: Female Patient Location: [facility] Reason For Study: Pulmonary Emboli Ordering [...] Unfractionated Anti Xa Level (06/27/2024 12:39 PM [facility]) Anti Xa Unfractionated Heparin 0.29 For Reference Range, See Comment IU/mL 06/27/2024 1:22 PM [facility] Blood STRUCTURE OF LEFT HAND / Unknown Venipuncture / Unknown 06/27/2024 12:39 PM [facility] 06/27/2024 12:54 PM [facility] Narrative [facility] - 06/27/2024 1:22 PM [facility] Therapeutic Range: UFH: 0.25-0.50 IU/mL for low intensity dosing, 0.30-0.70 IU/mL for high intensity dosing DVT and PE. This test is not validated for other direct factor X inhibitors (e.g. rivaroxaban, apixaban, edoxaban, betrixaban, fondaparinux) and should not be used for monitoring of other medications. us Esdras Markham MD LAB - BLOOD ORDERABLES Final Res ult [facility] Core Lab [address] [facility], [address] [phone] * US Lower Extremity Venous Duplex Bilateral (06/27/2024 11:21 AM [facility]) Anatomical Region Laterality Modality Vascular, Thigh, Leg Ultrasound Impressions 06/27/2024 11:45 AM [facility] IMPRESSION: No evidence of deep venous thrombosis in either lower extremity. I have personally reviewed the examination and initial interpretation and I agree with the findings. NINOSKA QUAN MD Narrative 06/27/2024 11:45 AM [facility] EXAMINATION: DOPPLER VENOUS ULTRASOUND OF BILATERAL LOWER [...] NINOSKA QUAN MD Rl Marly Elias MD [facility] ORDERABLES Final Result * Influenza A/B, RSV and SARS-CoV2 PCR (COVID-19) Nose (06/27/2024 8:43 AM [facility]) Pathologist [facility] Influenza A PCR Negative Negative 06/27/2024 10:03 AM [facility] Influenza B PCR Negative Negative 06/27/2024 10:03 AM [facility] RSV PCR Negative Negative 06/27/2024 10:03 AM [facility] SARS CoV2 PCR Negative Negative 06/27/2024 10:03 AM [facility] Comment:NEGATIVE: SARS-CoV-2 (COVID-19) RNA not detected, presumed negative. Swab NASAL STRUCTURE / Unknown Non-blood Collection / Unknown 06/27/2024 8:43 AM [facility] 06/27/2024 8:59 AM [facility] Narrative [facility] - 06/27/2024 10:03 AM [facility] Testing was performed using the Xpert Xpress CoV2/Flu/RSV Assay on the [employer] GeneXpert Instrument. This test should be ordered [...] management. This test was validated by the [facility] [employer]. These laboratories are certified under the Clinical Laboratory Improvement Amendments of 1988 (CLIA-88) as qualified to perfom high complexity laboratory testing. Rl Elias MD LAB - MICRO GENER AL ORDERABLES Final Result [facility] Inf. Diseases Diag. Lab [address] [facility], [address] [place] [phone] * (ABNORMAL) UA with Microscopic reflex to Culture (06/27/2024 8:12 AM [facility]) Color Urine Light Yellow Colorless, Straw, Light Yellow, Yellow 06/27/2024 8:29 AM [facility] Appearance Urine Clear Clear 06/28/19 8:29 AM [facility] Glucose Urine Negative Negative mg/dL 06/27/2024 8:29 AM [facility] Bilirubin Urine Negative Negative 8:29 AM [facility] Ketones Urine Negative Negative mg/dL 06/27/2024 8:29 AM [facility] Specific [place] Urine 1.011 1.003 - 1.035 06/27/2024 8:29 AM [facility] Blood Urine Negative Negative 06/27/2024 8:29 AM [facility] pH Urine 7.0 5.0 - 7.0 06/27/2024 8:29 AM [facility] Protein Albumin Urine Negative Negative mg/dL 06/27/2024 8:29 AM [facility] Urobilinogen Urine Normal Normal, 2.0 mg/dL 06/27/2024 8:29 AM [facility] Nitrite Urine Negative Negative 06/27/2024 8:29 AM [facility] Leukocyte Esterase Urine Negative Negative 06/27/2024 8:29 AM [facility] RBC Urine 0 <=2 /HPF 06/27/2024 8:29 AM [facility] WBC Urine 0 <=5 /HPF 06/27/2024 8:29 AM [facility] Squamous Epithelials Urine 2(H) <=1 /HPF 06/27/2024 8:29 AM [facility] Urine URINE SPECIMEN OBTAINED BY CLEAN CATCH PROCEDURE / Unknown Non-blood Collection / Unknown 06/27/2024 8:12 AM [facility] 06/27/2024 8:18 AM [facility] Narrative [facility] - 06/27/2024 8:29 AM [facility] Urine Culture not indicated Rl Elias MD LAB - URINE ORDER SYD Final Result [facility] [place] Core Lab [address] [facility], [address] [place] [address], [facility] * Adult Type and Screen (06/27/2024 5:57 AM [facility]) ABO/RH(D) A POS 06/27/2024 11:54 AM [facility] Antibody Screen Negative Negative 06/27/2024 11:54 AM [facility] Comment:Current antibody scr een is negative. Patient has a history of antibody(ies). A delay in compatible red blood cells may occur. SPECIMEN EXPIRATION DATE [id number] 06/27/2024 11:54 AM [facility] Blood BLOOD SPECIMEN / Unknown Venipuncture / Unknown 06/27/2024 5:57 AM [facility] 06/27/2024 6:07 AM [facility] Rl Elias MD LAB - BLOOD BANK TEST ORDER Final Result [facility] [address] [place] [phone] * (ABNORMAL) RBC and Platelet Morphology (06/27/2024 5:57 AM [facility]) RBC Morphology Confirmed RBC Indices 06/27/2024 10:33 AM [facility] Platelet Assessment Automated Count Confirmed. Platelet morphology is normal. Automated Count Confirmed. Platelet morphology is normal. 06/27/2024 10:33 AM [facility] Agness Cells Moderate(A) None Seen 06/27/2024 10:33 AM [facility] Polychromasia Slight(A) None Seen 06/27/2024 10:33 AM [facility] Sickle Cells Slight(A) None Seen 06/27/2024 10:33 AM [facility] Target Cells Slight(A) None Seen 06/27/2024 10:33 AM [facility] Blood BLOOD SPECIMEN / Unknown Venipuncture / Unknown 06/27/2024 5:57 AM [facility] 06/27/2024 6:07 AM [facility] us Rl Elias MD LAB - BLOOD ORDER SYD Final Result [facility] [place] Core Lab [address] [facility], [address] [place] [address] * (ABNORMAL) CBC with platelets and differential (06/27/2024 5:57 AM [facility]) WBC Count 17.8(H) 4.0 - 11.0 10e3/uL 06/27/2024 10:36 AM [facility] Comment:Albumin treated bloo d due to Smudge Cells. RBC Count 2.60(L) 3.80 - 5.20 10e6/uL 06/27/2024 10:36 AM [facility] Hemoglobin 8.5(L) 11.7 - 15.7 g/dL 06/27/2024 10:36 AM [facility] Hematocrit 25.9(L) 35.0 - 47.0 % 06/27/2024 10:36 AM [facility] MCV 100 78 - 100 fL 06/27/2024 10:36 AM [facility] MCH 32.7 26.5 - 33.0 pg 06/27/2024 10:36 AM [facility] MCHC 32.8 31.5 - 36.5 g/dL 06/27/2024 10:36 AM [facility] RDW 19.2(H) 10.0 - 15.0 % 06/27/2024 10:36 AM [facility] Platelet Count 469(H) 150 - 450 10e3/uL 06/27/2024 10:36 AM [facility] % Neutrophils 44 % 06/27/2024 10:36 AM [facility] % Lymphocytes 46 % 06/27/2024 10:36 AM [facility] % Monocytes 7 % 06/27/2024 10:36 AM [facility] % Eosinophils 3 % 06/27/2024 10:36 AM [facility] % Basophils 1 % 06/27/2024 10:36 AM [facility] % Immature Granulocytes 0 % 06/27/2024 10:36 AM [facility] NRBCs per 100 WBC 1(H) <1 /100 025 10:36 AM [facility] Absolute Neutrophils 7.6 1.6 - 8.3 10e3/uL 06/27/2024 10:36 AM [facility] Absolute Lymphocytes 8.0(H) 0.8 - 5.3 10e3/uL 06/27/2024 10:36 AM [facility] Absolute Monocytes 1.2 0.0 - 1.3 10e3/uL 06/27/2024 10:36 AM [facility] Absolute Eosinophils 0.5 0.0 - 0.7 10e3/uL 06/27/2024 10:36 AM [facility] Absolute Basophils 0.2 0.0 - 0.2 10e3/uL 06/27/2024 10:36 AM [facility] Absolute Immature Granulocytes 0.1 <=0.4 10e3/uL 06/27/2024 10:36 AM [facility] Absolute NRBCs 0.2 10e3/uL 06/27/2024 10:36 AM [facility] Blood BLOOD SPECIMEN / Unknown Venipuncture / Unknown 06/27/2024 5:57 AM [facility] 06/27/2024 6:07 AM [facility] us Rl Elias MD LAB - BLOOD ORDER SYD Final Result [facility] [place] [facility] [address], [address] [place] [address], [facility] * (ABNORMAL) Reticulocyte count (06/27/2024 5:57 AM [facility]) [facility] % Reticulocyte 15.5(H) 0.5 - 2.0 % 06/27/2024 9:16 AM [facility] Comment:x2 dilution Absolute Reticulocyte 0.404(H) 0.025 - 0.095 10e6/uL 06/27/2024 9:16 AM [facility] Comment:x2 dilution Blood BLOOD SPECIMEN / Unknown Venipuncture / Unknown 06/27/2024 5:57 AM [facility] 06/27/2024 6:07 AM [facility] Rl Elias MD LAB - BLOOD ORDER SYD Final Result [facility] [place] [facility] [address] [facility], [address] [id number] * (ABNORMAL) Hepatic panel (06/27/2024 5:57 AM [facility]) Pathologist [facility] Protein Total 7.4 6.4 - 8.3 g/dL 06/27/2024 9:06 AM [facility] Albumin 4.0 3.5 - 5.2 g/dL 06/27/2024 9:06 AM [facility] Bilirubin Total 1.2 <=1.2 mg/dL 06/27/2024 9:06 AM [facility] Alkaline Phosphatase 113 40 - 150 U/L 06/27/2024 9:06 AM [facility] AST 41 0 - 45 U/L 06/27/2024 9:06 AM [facility] ALT 35 0 - 50 U/L 06/27/2024 9:06 AM [facility] Bilirubin Direct 0.45(H) 0.00 - 0.30 mg/dL 06/27/2024 9:06 AM [facility] Blood BLOOD SPECIMEN / Unknown Venipuncture / Unknown 06/27/2024 5:57 AM [facility] 06/27/2024 6:06 AM [facility] Rl Elias MD LAB - BLOOD ORDER SYD Final Result [facility] [place] [facility] [address] [facility], [address] [place] [id number] * (ABNORMAL) CBC with platelets (06/27/2024 5:57 AM [facility]) [facility] WBC Count 17.8(H) 4.0 - 11.0 10e3/uL 06/27/2024 6:16 AM [facility] RBC Count 2.60(L) 3.80 - 5.20 10e6/uL 06/27/2024 6:16 AM [facility] LABORATORY Hemoglobin 8.5(L) 11.7 - 15.7 g/dL 06/27/2024 6:16 AM [facility] Hematocrit 25.9(L) 35.0 - 47.0 % 06/27/2024 6:16 AM [facility] MCV 100 78 - 100 fL 06/27/2024 6:16 AM [facility] MCH 32.7 26.5 - 33.0 pg 06/27/2024 6:16 AM [facility] MCHC 32.8 31.5 - 36.5 g/dL 06/27/2024 6:16 AM [facility] RDW 19.2(H) 10.0 - 15.0 % 06/27/2024 6:16 AM [facility] Platelet Count 469(H) 150 - 450 10e3/uL 06/27/2024 6:16 AM [facility] Blood BLOOD SPECIMEN / Unknown Venipuncture / Unknown 06/27/2024 5:57 AM [facility] 06/27/2024 6:07 AM [facility] us Jermaine Quispe MD LAB - BLOOD ORDERABLES Final Res ult [facility] [place] Core Lab [address] [facility], [address] [place] [address] * (ABNORMAL) Basic metabolic panel (06/27/2024 5:57 AM [facility]) [facility] Sodium 136 135 - 145 mmol/L 06/27/2024 7:08 AM [facility] Potassium 4.2 3.4 - 5.3 mmol/L 06/27/2024 7:08 AM [facility] Chloride 104 98 - 107 mmol/L 06/27/2024 7:08 AM [facility] Carbon Dioxide (CO2) 23 22 - 29 mmol/L 06/27/2024 7:08 AM [facility] Anion Gap 9 7 - 15 mmol/L 06/27/2024 7:08 AM [facility] Urea Nitrogen 8.0 6.0 - 20.0 mg/dL 06/27/2024 7:08 AM [facility] Creatinine 0.74 0.51 - 0.95 mg/dL 06/27/2024 7:08 AM [facility] GFR Estimate >90 >60 mL/min/1.7 3m2 06/27/2024 7:08 AM [facility] Comment:eGFR calculated us2020 CKD-EPI equation. Calcium 8.7(L) 8.8 - 10.4 mg/dL 06/27/2024 7:08 AM [facility] Glucose 90 70 - 99 mg/dL 06/27/2024 7:08 AM [facility] Blood BLOOD SPECIMEN / Unknown Venipuncture / Unknown 06/27/2024 5:57 AM [facility] 06/27/2024 6:06 AM [facility] us Jermaine Quispe MD LAB - BLOOD ORDERABLES Final Res ult [facility] [place] Core Lab [address] [facility], [address] [phone] * Heparin Unfractionated Anti Xa Level (06/27/2024 5:56 AM [facility]) Anti Xa Unfractionated Heparin 0.30 For Reference Range, See Comment IU/mL 06/27/2024 6:29 AM [facility] Blood STRUCTURE OF RIGHT HAND / Unknown Venipuncture / Unknown 06/27/2024 5:56 AM [facility] 06/27/2024 6:07 AM [facility] Narrative [facility] - 06/27/2024 6:29 AM [facility] Therapeutic Range: UFH: 0.25-0.50 IU/mL for low intensity dosing, 0.30-0.70 IU/mL for high intensity dosing DVT and PE. This test is not validated for other direct factor X inhibitors (e.g. rivaroxaban, apixaban, edoxaban, betrixaban, fondaparinux) and should not be used for monitoring of other medications. Esdras Markham MD LAB - BLOOD ORDERABLES Final Res ult Performing Organization Address [facility] Co de Phone Number LABORATORY [facility] [place] Core Lab [address] [facility], [address] [phone] * Heparin Unfractionated Anti Xa Level (06/26/2024 10:46 PM [facility]) Pathologist [facility] Anti Xa Unfractionated Heparin 0.28 For Reference Range, See Comment IU/mL 06/26/2024 11:13 PM [facility] Blood STRUCTURE OF RIGHT HAND / Unknown Venipuncture / Unknown 06/26/2024 10:46 PM [facility] 06/26/2024 10:55 PM [facility] Narrative [facility] - 06/26/2024 11:13 PM [facility] Therapeutic Range: UFH: 0.25-0.50 IU/mL for low intensity dosing, 0.30-0.70 IU/mL for high intensity dosing DVT and PE. This test is not validated for other direct factor X inhibitors (e.g. rivaroxaban, apixaban, edoxaban, betrixaban, fondaparinux) and should not be used for monitoring of other medications. Jermaine Quispe MD LAB - BLOOD ORDERABLES Final Res ult LABORATORY [facility] [place] Core Lab [address] [facility], [address] [phone] * (ABNORMAL) Erythrocyte sedimentation rate auto (06/26/2024 6:46 PM [facility]) Erythrocyte Sedimentation Rate 24(H) 0 - 20 mm/hr 06/26/2024 7:28 PM [facility] Blood BLOOD SPECIMEN / Unknown Venipuncture / Unknown 06/26/2024 6:46 PM [facility] 06/26/2024 7:14 PM [facility] us Jermaine Quispe MD LAB - BLOOD ORDERABLES Final Res ult [facility] [place] Core Lab [address] [facility], [address] [place] [address] * Blood Culture Peripheral Blood (06/26/2024 6:46 PM [facility]) Culture No Growth 07/01/2024 9:47 PM [facility] Blood BLOOD SPECIMEN / Unknown Venipuncture / Unknown 06/26/2024 6:46 PM [facility] 06/26/2024 7:14 PM [facility] us Jermaine Quispe MD LAB - MICRO GENERAL ORDERABLES F inal Result Performing Organization Address [facility] Co de Phone Number [facility]D LABORATORY [facility] Inf. Diseases Diag. Lab [address] [facility], [address] [place] [phone] * Blood Culture Peripheral Blood (06/26/2024 6:46 PM [facility]) Culture No Growth 07/01/2024 9:47 PM [facility] Blood BLOOD SPECIMEN / Unknown Venipuncture / Unknown 06/26/2024 6:46 PM [facility] 06/26/2024 7:15 PM [facility] Narrative [facility] - 07/01/2024 9:47 PM [facility] Only an Aerobic Blood Culture Bottle was collected, interpret results with caution. us Jermaine Quispe MD LAB - MICRO GENERAL ORDERABLES F inal Result Performing Organization Address City/[facility]/ZIP Co de Phone Number [facility] IDD LABORATORY [facility] Inf. Diseases Diag. Lab [address] [facility], [address] [phone] * EKG 12 lead (06/26/2024 5:19 PM [facility]) Systolic Blood Pressure mmHg RADIOLOGY RESULTS Diastolic Blood Pressure mmHg RADIOLOGY RESULTS Ventricular Rate 79 BPM RAD IOLOGY RESULTS Atrial Rate 79 BPM RADIOLOG Y RESULTS SD Interval 160 ms RADIOLOG Y RESULTS QRS Duration 78 ms RADIOLO GY RESULTS QT 380 ms RADIOLOGY RESULTS QTc 435 ms RADIOLOGY RESULTS P [place] 39 degrees RADIOLOGY RESULTS R AXIS 42 degrees RADIOLOGY RESULTS T [place] 18 degrees RADIOLOGY RESULTS Interpretation ECG Sinus rhythm Normal ECG Unconfirmed report - interpretation of this ECG is computer generated - see medical record for final interpretation Confirmed by - EMERGENCY ROOM, PHYSICIAN ([id number]), dictionary editor Woody Patten ([id number]) on 06/27/2024 6:46:34 AM RADIOLOGY RESULTS 06/26/2024 5:19 PM [facility] 06/27/2024 6:46 AM [facility] us Jayden Adhikari MD ECG ORDERABLES Edited Resul t - Final RADIOLOGY RESULTS * CT Chest Pulmonary Embolism w Contrast (06/26/2024 4:15 PM [facility]) Anatomical Region Laterality Modality Chest, SUBRAD CT BODY, UMP CT CHEST Computed Tomography Impressions 06/26/2024 4:29 PM [facility] IMPRESSION: Bilateral pulmonary emboli and bilateral pulmonary nodules, cannot exclude septic emboli the lungs given 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 No definitive evidence of right heart strain. Some bony changes again noted of sickle cell in the thoracic spine and humeral heads typical of microvascular insults related to sickle cell. EVY FUENTES MD Narrative 06/26/2024 4:[address] [address] chest pulmonary angiogram with contrast INDICATION: [...] cell. EVY FUENTES MD Jayden Adhikari MD [facility] ORDERABLES Final Resu lt * Chest XR, PA & LAT (06/26/2024 3:13 PM [facility]) Anatomical Region Laterality Modality Chest Digital Radiogra phy Impressions 06/26/2024 3:24 PM [facility] IMPRESSION: 1. Stable appearance of right middle lobe opacities which may represent infiltrate versus atelectasis. 2. No new or worsening cardiopulmonary abnormality. I have personally reviewed the examination and initial interpretation and I agree with the findings. EVY FUENTES MD Narrative 06/26/2024 3:24 PM [facility] EXAM: XR CHEST 2 VIEWS 06/26/2024 3:13 [...] Final Result * Procalcitonin (06/26/2024 2:42 PM [facility]) Procalcitonin 0.03 <0.50 ng/mL 06/26/2024 5:02 PM [facility] Comment: Interpretation and Recommendations <0.5 [...] See Procalcitonin Guidance document for more details. [email or web address] Factors that may affect PCT levels (not [...] Unknown Venipuncture / Unknown 06/26/2024 2:42 PM [facility] 06/26/2024 2:52 PM [facility] us Jayden Adhikari MD LAB - BLOOD ORDERABLES Final Result [facility]AT[facility] [place] Core Lab [address] [facility], [address] [place] [address] * CRP inflammation (06/26/2024 2:42 PM [facility]) Pathologist [facility] CRP Inflammation 4.22 <5.00 mg/L 06/27/19 5:02 PM [facility] Blood BLOOD SPECIMEN / Unknown Venipuncture / Unknown 06/26/2024 2:42 PM [facility] 06/26/2024 2:52 PM [facility] Jayden Adhikari MD LAB - BLOOD ORDERABLES Final Result [facility] [place] Core Lab [address] [facility], [address] [place] [phone] * Adult Type and Screen (06/26/2024 2:42 PM [facility]) Pathologist [facility] ABO/RH(D) A POS 06/26/2024 2:30 PM [facility] Antibody Screen Negative Negative 06/26/2024 2:30 PM [facility] Comment:Current antibody scr een is negative. Patient has a history of antibody(ies). A delay in compatible red blood cells may occur. SPECIMEN EXPIRATION DATE [id number] 06/26/2024 2:30 PM [facility] Blood BLOOD SPECIMEN / Unknown Venipuncture / Unknown 06/26/2024 2:42 PM [facility] 06/26/2024 2:50 PM [facility] Jayden Adhikari MD LAB - BLOOD BANK TEST ORDER Final Result Performing Organization Address City/[facility]/ZIP Co de Phone Number U BLOOD BANK [address] [place] [address] * (ABNORMAL) CBC with platelets and differential (06/26/2024 2:42 PM [facility]) Pathologist [facility] WBC Count 12.3(H) 4.0 - 11.0 10e3/uL 06/26/2024 3:23 PM [facility] RBC Count 2.58(L) 3.80 - 5.20 10e6/uL 06/26/2024 3:23 PM [facility] Hemoglobin 8.5(L) 11.7 - 15.7 g/dL 06/26/2024 3:23 PM [facility] Hematocrit 26.1(L) 35.0 - 47.0 % 06/26/2024 3:23 PM [facility] MCV 101(H) 78 - 100 fL 06/26/2024 3:23 PM [facility] MCH 32.9 26.5 - 33.0 pg 06/26/2024 3:23 PM [facility] MCHC 32.6 31.5 - 36.5 g/dL 06/26/2024 3:23 PM [facility] RDW 19.5(H) 10.0 - 15.0 % 06/26/2024 3:23 PM [facility] Platelet Count 505(H) 150 - 450 10e3/uL 06/26/2024 3:23 PM [facility] % Neutrophils 69 % 06/26/2024 3:23 PM [facility] % Lymphocytes 20 % 06/26/2024 3:23 PM [facility] % Monocytes 9 % 06/26/2024 3:23 PM [facility] % Eosinophils 1 % 06/26/2024 3:23 PM [facility] % Basophils 1 % 06/26/2024 3:23 PM [facility] % Immature Granulocytes 1 % 06/26/2024 3:23 PM [facility] NRBCs per 100 WBC 1(H) <1 /100 025 3:23 PM [facility] Absolute Neutrophils 8.4(H) 1.6 - 8.3 10e3/uL 06/26/2024 3:23 PM [facility] Absolute Lymphocytes 2.4 0.8 - 5.3 10e3/uL 06/26/2024 3:23 PM [facility] Absolute Monocytes 1.1 0.0 - 1.3 10e3/uL 06/26/2024 3:23 PM [facility] Absolute Eosinophils 0.1 0.0 - 0.7 10e3/uL 06/26/2024 3:23 PM [facility] Absolute Basophils 0.2 0.0 - 0.2 10e3/uL 06/26/2024 3:23 PM [facility] Absolute Immature Granulocytes 0.1 <=0.4 10e3/uL 06/26/2024 3:23 PM [facility] Absolute NRBCs 0.1 10e3/uL 06/26/2024 3:23 PM [facility] Blood BLOOD SPECIMEN / Unknown Venipuncture / Unknown 06/26/2024 2:42 PM [facility] 06/26/2024 2:52 PM [facility] Jayden Adhikari MD LAB - BLOOD ORDERABLES Final Result LABORATORY [facility] Core Lab [address] [facility], [address] [phone] * Troponin T, High Sensitivity (06/26/2024 2:42 PM [facility]) Pathologist [facility] Troponin T, High Sensitivity <6 <=14 ng/L 06/26/2024 3:24 PM [facility] U LABORATORY Comment: Either a High Sensitivity [...] Unknown Venipuncture / Unknown 06/26/2024 2:42 PM [facility] 06/26/2024 2:52 PM [facility] Jayden Adhikari MD LAB - BLOOD ORDERABLES Final Result LABORATORY [facility] [place] Core Lab [address] [facility], [address] [phone] * (ABNORMAL) D dimer quantitative (06/26/2024 2:42 PM [facility]) Pathologist [facility] D-Dimer Quantitative 0.69(H) 0.00 - 0.50 ug/mL FEU 06/26/2024 3:13 PM [facility] Blood BLOOD SPECIMEN / Unknown Venipuncture / Unknown 06/26/2024 2:42 PM [facility] 06/26/2024 2:52 PM [facility] Narrative [facility] - 06/26/2024 3:13 PM [facility] This D-dimer assay is intended for use in conjunction with a clinical pretest probability assessment model to exclude pulmonary embolism (PE) and deep venous thrombosis (DVT) in outpatients suspected of PE or DVT. The cut-off value is 0.50 ug/mL FEU. Jayden Adhikari MD LAB - BLOOD ORDERABLES Final Result Performing Organization Address City/[facility]/ZIP Co de Phone Number U LABORATORY [facility] [place] Core Lab [address] [facility], [address] [phone] * HCG qualitative (blood) (06/26/2024 2:42 PM [facility]) Pathologist [facility] hCG Serum Qualitative Negative Negative JARTE 06/26/2024 3:04 PM [facility] Comment:This test is for scr eening purposes. Results should be interpreted along with the clinical picture. Confirmation testing is available if warranted by ordering [id number], HCG Quantitative . Blood BLOOD SPECIMEN / Unknown Venipuncture / Unknown 06/26/2024 2:42 PM [facility] 06/26/2024 2:50 PM [facility] Jayden Adhikari MD LAB - BLOOD ORDERABLES Final Result Performing Organization Address [facility] Co de Phone Number U LABORATORY [facility] [place] Core Lab [address] [facility], [address] [phone] * (ABNORMAL) Basic metabolic panel (06/26/2024 2:42 PM [facility]) Pathologist [facility] Sodium 140 135 - 145 mmol/L 06/26/2024 3:24 PM [facility] Potassium 4.3 3.4 - 5.3 mmol/L 06/26/2024 3:24 PM [facility] Chloride 109(H) 98 - 107 mmol/L 06/26/2024 3:24 PM [facility] Carbon Dioxide (CO2) 20(L) 22 - 29 mmol/L 06/26/2024 3:24 PM [facility] Anion Gap 11 7 - 15 mmol/L 06/26/2024 3:24 PM [facility] Urea Nitrogen 6.7 6.0 - 20.0 mg/dL 06/26/2024 3:24 PM [facility] Creatinine 0.66 0.51 - 0.95 mg/dL 06/26/2024 3:24 PM [facility] GFR Estimate >90 >60 mL/min/1.7 3m2 06/26/2024 3:24 PM [facility] Comment:eGFR calculated 2020 CKD-EPI equation. Calcium 9.0 8.8 - 10.4 mg/dL 06/26/2024 3:24 PM [facility] Glucose 94 70 - 99 mg/dL 06/26/2024 3:24 PM [facility] Blood BLOOD SPECIMEN / Unknown Venipuncture / Unknown 06/26/2024 2:42 PM [facility] 06/26/2024 2:52 PM [facility] Jayden Adhikari MD LAB - BLOOD ORDERABLES Final Result [facility] [place] Core Lab [address] [facility], [address] [place] [address] documented in this [...] DVT-PE TreatmentIndications:DVT-PE Treatment $Given 06/29/2024 7:56 AM [facility] 10 mg $Given 06/28/2024 8:15 PM [facility] 10 mg $Given 06/28/2024 8:14 AM [facility] 10 mg apixaban ANTICOAGULANT (ELIQUIS) tablet 5 [...] For 1 dose $Given 06/26/2024 2:36 PM [facility] 25 mg diphenhydrAMINE (BENADRYL) capsule 25 mg 25 mg, Oral, EVERY 6 HOURS PRN, itching, Starting on Wed06/26/24 at 1837 $Given 06/26/2024 7:20 PM [facility] 25 mg diphenhydrAMINE (BENADRYL) injection 25 mg 25 mg, Intravenous, EVERY 6 HOURS PRN, itching, Starting on Wed06/26/24 at 1837 $Given 06/29/2024 6:00 AM [facility] 25 m g $Given 06/28/2024 10:07 PM [facility] 25 mg $Given 06/28/2024 4:09 PM [facility] 25 mg FLUoxetine (PROzac) capsule 10 mg 10 mg, Oral, DAILY, First dose on Wed06/27/24 at 0800 $Given 06/29/2024 7:56 AM [facility] 10 mg $Given 06/28/2024 8:14 AM [facility] 10 mg $Given 06/27/2024 8:28 AM [facility] 10 mg heparin - BOLUS DOSE from [...] re-enter medication order. $Given 06/27/2024 12:06 AM [facility] 1,550 Units heparin - BOLUS DOSE from [...] re-enter medication order. $Given 06/27/2024 1:34 PM [facility] 1,550 Units heparin 25,000 units in 0.45% [...] Xa 0.3-0.7) $New Bag 06/28/2024 7:51 AM [facility] 1,200 Units/hr 12 mL/hr Rate/Dose Verify 06/28/2024 3:17 AM [facility] 1,200 Units/hr 12 mL/hr Rate/Dose Verify 06/27/2024 8:21 PM [facility] 1,200 Units/hr 12 mL/hr heparin ANTICOAGULANT Loading [...] re-enter medication order. $Given 06/26/2024 4:50 PM [facility] 4,100 Units heparin lock flush 100 unit/mL [...] each port lumen $Given 06/29/2024 10:31 AM [facility] 5 mLs hydromorphone (DILAUDID) injection 2 mg 2 mg, Intravenous, EVERY 1 HOUR PRN, severe pain, Starting on Wed06/26/24 at 1429, For 3 doses $Given 06/26/2024 4:34 PM [facility] 2 mg $Given 06/26/2024 3:34 PM [facility] 2 mg $Given 06/26/2024 2:40 PM [facility] 2 mg hydromorphone (DILAUDID) injection 2 mg 2 mg, Intravenous, EVERY 2 HOURS PRN, moderate pain, severe pain, Starting on Wed06/26/24 at 1837 $Given 06/26/2024 9:48 PM [facility] 2 mg $Given 06/26/2024 7:20 PM [facility] 2 mg hydromorphone (DILAUDID) injection 2 mg 2 mg, Intravenous, EVERY 2 HOURS, First dose (after last modification) on Wed06/27/24 at 0000, Hold for excess sedation or RR < 8 / min and inform MD. $Given 06/29/2024 10:06 AM [facility] 2 mg $Given 06/29/2024 8:00 AM [facility] 2 mg $Given 06/29/2024 6:00 AM [facility] 2 mg hydroxyurea (HYDREA) capsule 1,000 mg 1,000 mg, Oral, 2 TIMES DAILY, First dose on Wed06/26/24 at 2000, Indications: sickle cell, Do not crush May require hepatic and/or renal dose or frequency adjustments. See reference link for guidelines.Indications:sickle cell $Given 06/29/2024 7:56 AM [facility] 1,000 mg $Given 06/28/2024 8:10 PM [facility] 1,000 mg $Given 06/28/2024 8:18 AM [facility] 1,000 mg hydrOXYzine HCl (ATARAX) tablet 25 [...] contact the provider. $Given 06/28/2024 4:09 PM [facility] 25 mg $Given 06/27/2024 8:19 AM [facility] 25 mg $Given 06/27/2024 3:14 AM [facility] 25 mg hydrOXYzine HCl (ATARAX) tablet 50 [...] For 1 dose $Given 06/26/2024 3:53 PM [facility] 55 mLs lactated ringers BOLUS 1,000 mL Intravenous, 1,000 mL, ONCE, at 500 mL/hr, Administer over 2 Hours, On Wed06/26/24 at 1435, For 1 dose $New Bag 06/26/2024 2:40 PM [facility] 1,000 mLs 500 mL/hr Lidocaine (LIDOCARE) 4 [...] Liquid not required. $Given 06/28/2024 8:14 AM [facility] 4 mg $Given 06/28/2024 2:02 AM [facility] 4 mg $Given 06/27/2024 8:19 PM [facility] 4 mg ondansetron (ZOFRAN) injection 4 mg [...] IV dormant line $Given 06/29/2024 10:06 AM [facility] 3 mLs $Given 06/29/2024 4:00 AM [facility] 3 mLs $Given 06/28/2024 6:05 PM [facility] 3 mLs sodium chloride (PF) 0.9% PF flush 82 mL 82 mL, Intravenous, ONCE, On Wed06/26/24 at 1540, For 1 dose $Given 06/26/2024 3:53 PM [facility] 82 mLs documented in this encounter Active and Recently Administered Medications Times are shown in [facility]. Scheduled Medication Order 06/27/2024 06/28/2024 06/29/2024 apixaban [...] Sathish Goetz RN)1234 ($Given - Provider: Sathish Goetz RN)1432 ($Given - Provider: Sahtish Goetz RN)1610 ($Given - Provider: Mely Barbour [...] XA result- 0.30, in target range so typewriter aligner is NOT adjusting. ordered next lab due [...] 1 constipation PRN medication is ordered, administer step-brariga as indicated, moving to the next step [...] 1 constipation PRN medication is ordered, administer step-barriag as indicated, moving to the next step ONLY if prior step ineffective. Step 1: senna-docusate (SENOKOT-S; PERICOLACE) OR bisacodyl (DULCOLAX) EC tablet Step 2: polyethylene glycol (MIRALAX/GLYCOLAX) Step 3: bisacodyl (DULCOLAX) suppository Step 4: enema Hold for loose stools. documented in this encounter Additional Health Concerns Infection Onset Date Last Indicated Resolved Time Rule Out COVID-19 06/27/2024 06/27/2024 06/27/2024 10:03 AM [facility] documented as of this encounter Care Teams Major Donor Coordinator Relationship Specialty Start Date End Date Veronica Joseph MD [address] [place] [address] PCP - General Family Medicine 06/18/24 Mor Ramsey Medical Student 04/03/24 Case Samuel MD [address] [place] [address], [address] [place] [address] Assigned Pediatric Specialist Provider 05/18/24 Juhi Benson, RN Specialty General Purchasing Agent Hematology & Oncology 05/29/24 documented as of this encounter
--- OUTSIDE RECORDS SUMMARY | 2024-07-28 21:35 | XMS_ITS | Encounter Summary ---
Author Organization [place] Address [address] [place] [address]. [place] [address] Care Team Providers Care Control Systems Technician Name Role Phone RoxyElvirac Unavailable Unavailable Case Samuel MD Unavailable [phone] Juhi Benson RN Unavailable Unavailable Veronica Joseph MD Primary Care Provider [phone] Reason for Visit * Reason Onset Date Comments Refill Request 07/04/2024 Encounter Details Date Type Department Care Team (Late st Contact Info) Description 07/04/[address] [place] [address] Case Samuel MD [address] [place] [address], [address] [place], [place] [id number] Refill Request Social History Tobacco Use Types [...] on file 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 Samuel FUNDING ANALYST Reviewed: No Access Routed/Paged provider: Dr. Case Samuel. documented in this encounter Plan of Treatment Upcoming Encounters Date Type Department Care Team (Late st Contact Info) Description 08/07/2024 7:15 AM CDT Lab [facility] [address] [phone] Case Samuel MD [address] [place] [address], ROOM [address] [address] 08/08/2024 8:00 AM CDT Appointment [facility] [address] [phone] Case Samuel MD [address] [place], [place] [address], ROOM [address] [address] 10/30/2024 11:30 AM CDT Lab [facility] [address] [phone] Case Samuel MD [address] [place] [address], ROOM [address] [address] 10/30/2024 12:00 PM CDT Oncology Visit [facility] [address] [phone] Case Samuel MD [address] [place], [place] [address], ROOM [address] [address] documented as of this encounter Goals Goal [...] crisis documented in this encounter Care Teams Control Systems Technician Relationship Specialty Start Date End Date Veronica Joseph MD [address] [place] [address] PCP - General Family Medicine 06/18/24 Mor Ramsey Medical Student 04/03/24 Case Samuel MD [address] [place] [address], RO[address] [place], [place] [address] Assigned Pediatric Specialist Provider 05/18/24 Juhi Benson, RN Specialty Straw Hat Brim Raiser Operator Hematology & Oncology 05/29/24 documented as of this encounter
--- OUTSIDE RECORDS SUMMARY | 2024-07-28 21:35 | XMS_ITS | Encounter Summary ---
Author Organization [place] Address [address] [place] [address]. 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 Gender Identity Not on file Sexual Orientation Not on file documented as of this encounter Plan of Treatment Upcoming Encounters Date Type Department Care Team (Late st Contact Info) Description 08/07/2024 7:15 AM CDT Lab [facility] [address] [phone] Case Samuel MD [address] [place] [address], ROOM [address] [address] 08/08/2024 8:00 AM CDT Appointment [facility] Advanced Treatment [address] [phone] Case Samuel MD [address] [place] [address], ROOM [address] [address] 10/30/2024 11:30 AM CDT Lab [facility] [address] [phone] Case Samuel MD [address] [place] [address], ROOM [address] [address] 10/30/2024 12:00 PM CDT Oncology Visit [facility] [address] [phone] Case Samuel MD [address] [facility] 484, [address] [place] [address] documented as of this encounter Goals Goal [...] on filedocumented in this encounter Care Teams Impregnating Tank Operator Relationship Specialty Start Date End Date Veronica Joseph MD [address] [place] [address] PCP - General Family Medicine 06/18/24 Mor Ramsey Medical Student 04/03/24 Case Samuel MD [address] [facility] 484, [address] [place] [address] Assigned Pediatric Specialist Provider 05/18/24 Juhi Benson, RN Specialty Regulatory Compliance Engineer Hematology & Oncology 05/29/24 documented as of this encounter
--- OUTSIDE RECORDS SUMMARY | 2024-07-28 21:35 | XMS_ITS | Encounter Summary ---
Author Organization [place] Address [address] [place] [address] Care Team Providers Care Verifier Name Role Phone RoxyElvirac Unavailable Unavailable Case Samuel MD Unavailable [phone] Juhi Benson RN Unavailable Unavailable Veronica Joseph MD Primary Care Provider [phone] Reason for Visit * Reason Comments Sickle Cell Pain Crisis * Auth/Cert Specialty Diagnoses / Procedures Referred By Shahid pendleton Referred To Contact EMERGENCY MEDICINE Diagnoses Acute pulmonary embolism without acute cor pulmonale, unspecified pulmonary embolism type (H) Sickle cell pain crisis (H) [facility] [address] [place] [address] Phone: tel: Referral ID Status Reason Start Date Expiration Date Visits Re quested Visits Authorized [id number] 1 1 Encounter Details Date Type Department Care Team (Late st Contact Info) Description 06/25/2024 9:50 PM SUPERVISOR COUNSELING AND GUIDANCE - 06/26/2024 1:11 AM SUPERVISOR COUNSELING AND GUIDANCE Emergency [facility] [address] [place] [phone] Polly Naylor MD [address] [place], [place] [address] Marissa Matos MD [address] [place] [address] Sickle cell disease with crisis (H); [...] file Legal Sex Female 8:25 AM SUPERVISOR COUNSELING AND GUIDANCE Gender Identity Not on file Sexual Orientation Not on file documented as of this encounter Last Filed Vital Signs Vital Sign Reading Time Taken Comments Blood Pressure 117/81 06/25/2024 9:46 PM SUPERVISOR COUNSELING AND GUIDANCE Pulse 104 06/25/2024 9:46 PM SUPERVISOR COUNSELING AND GUIDANCE Temperature 36.8 C (98.2 F) 06/25/2024 9:46 PM SUPERVISOR COUNSELING AND GUIDANCE Respiratory Rate 16 06/25/2024 9:46 PM SUPERVISOR COUNSELING AND GUIDANCE Oxygen Saturation 98% 06/25/2024 9:46 PM SUPERVISOR COUNSELING AND GUIDANCE Inhaled Oxygen Concentration - - Weight 51 kg (112 lb 6.4 oz) 06/25/2024 9:46 PM SUPERVISOR COUNSELING AND GUIDANCE Height - - Body Mass Index 21.24 06/24/2024 9:26 AM SUPERVISOR COUNSELING AND GUIDANCE documented in this encounter Discharge Instructions * Discharge Instructions* Polly Naylor MD - 06/26/2024 12:04 AM SUPERVISOR COUNSELING AND GUIDANCE You are seen in the emergency department [...] that time. Otherwise, please follow-up with your certified personal chef as previously planned tomorrow. RVISOR COUNSELING AND GUIDANCE documented in this encounter Medications at Time [...] naloxone (NARCAN) 4 MG/0.1ML nasal spray [place] 1 spray (4 mg) into one nostril [...] note were not included. ED Provider Note [facility] EMERGENCY DEPARTMENT ([facility]) 06/25/24 ED PROVIDER NOTE History Chief Complaint [...] she is hoping to get evaluatedby her certified personal chef. 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 [...] chest pain Rhythm: normal sinus Rate: normal [place]: normal Ectopy: none Conduction: normal ST Segments/ T Waves: No ST-T wave changes Q Waves: none Comparison to prior: Unchanged Clinical Impression: normal EKG Results for orders placed or performed during the hospital encounter of 06/25/24 XR Chest 2 Views Status: None Narrative EXAM: XR CHEST 2 VIEWS LOCATION: [facility] DATE: 06/25/2024 INDICATION: Chest pain, SSC. [...] Negative Ketones Urine Negative Negative mg/dL Specific [place] Urine 1.009 1.003 - 1.035 Blood Urine [...] Rate 87 BPM Atrial Rate 87 BPM WY Interval 162 ms QRS Duration 86 ms QT 362 ms QTc 435 ms P [place] 54 degrees R AXIS 84 degrees T [place] 70 degrees Interpretation ECG Sinus rhythm Normal ECG Unconfirmed report - interpretation of this ECG is computer generated - see medical record for final interpretation Confirmed by - EMERGENCY ROOM, PHYSICIAN ([id number]), graphic editor Nivia Willson ([id number]) on 06/25/2024 10:56:42 PM CBC with platelets differential Status: Abnormal Narrative The following orders were created for panel order CBC with platelets differential. Procedure Abnormality Status --------- ------ CBC with platelets and d...[[id number]] Abnormal Final result Please view results for these tests on the individual orders. Medications hydromorphone (DILAUDID) injection 2 mg (2 mg Intravenous $Given 06/25/24 6347) sodium chloride 0.9% BOLUS 1,000 mL (1,000 [...] Bilirubin Urine Negative Ketones Urine Negative Specific [place] Urine 1.009 Blood Urine Negative pH Urine [...] pain, unspecified type Polly Naylor MD [facility] EMERGENCY DEPARTMENT 06/25/2024 Polly Naylor MD 06/26/24 0006 RVISOR COUNSELING AND GUIDANCE * Juhi Crump RN - 06/25/2024 9:47 PM CST Pt ambulatory from home with sickle cell pain crisis. States pain located in legs and back. Complains of mild chest pain. Triage Assessment (Adult) Row Name 06/25/24 7187 Triage Assessment Airway WDL WDL Respiratory WDL Respiratory WDL WDL Cardiac WDL Cardiac WDL WDL Peripheral/Neurovascular WDL Peripheral Neurovascular WDL WDL Cognitive/Neuro/Behavioral WDL Cognitive/Neuro/Behavioral WDL WDL Lester Coma Scale Best Eye Response 4-->(E4) spontaneous Best Motor Response 6-->(M6) obeys commands Best Verbal Response 5-->(V5) oriented Lester Coma Scale Score 15 RVISOR COUNSELING AND GUIDANCE documented in this encounter Plan of Treatment Upcoming Encounters Date Type Department Care Team (Late st Contact Info) Description 08/07/2024 7:15 AM CDT Lab [facility] [address] [place] [phone] Case Samuel MD [address] [place] [address], [address] [place] [address] 08/08/2024 8:00 AM CDT Appointment [facility] [address] [phone] Case Samuel MD [address] [facility] 484, [address] [place] [address] 10/30/2024 11:30 AM CDT Lab [facility] Cancer [address] [phone] Case Samuel MD [address] [place] [address], [address] [place] [address] 10/30/2024 12:00 PM CDT Oncology Visit [facility] [address] [phone] Case Samuel MD [address] [place] [address], ROOM [address] [address] documented as of this encounter Goals Goal [...] 2 VIEWS STAT 06/25/2024 10:3 5 PM SUPERVISOR COUNSELING AND GUIDANCE EKG 12-LEAD, TRACING ONLY STAT 06/25/2024 10:19 PM SUPERVISOR COUNSELING AND GUIDANCE ROUTINE UA WITH MICROSCOPIC REFLEX TO CULTURE STAT 06/25/2024 10:16 PM SUPERVISOR COUNSELING AND GUIDANCE CBC WITH PLATELETS AND DIFFERENTIAL STAT 06/25/2024 10:15 PM SUPERVISOR COUNSELING AND GUIDANCE TROPONIN T, HIGH SENSITIVITY STAT 06/25/2024 10:15 PM SUPERVISOR COUNSELING AND GUIDANCE CBC WITH PLATELETS & DIFFERENTIAL STAT 06/25/2024 10:15 PM SUPERVISOR COUNSELING AND GUIDANCE BASIC METABOLIC PANEL STAT 06/25/2024 10:15 PM SUPERVISOR COUNSELING AND GUIDANCE documented in this encounter Results * XR Chest 2 Views (06/25/2024 10:35 PM SUPERVISOR COUNSELING AND GUIDANCE) Anatomical Region Laterality Modality Chest Digital Radiogra phy 06/25/2024 10:3 5 PM SUPERVISOR COUNSELING AND GUIDANCE Impressions 06/25/2024 10:47 PM SUPERVISOR COUNSELING AND GUIDANCE IMPRESSION: Bilateral portacatheter with tips in the SVC. Mild low lung volumes. Heart size and pulmonary vascularity stable at the upper limits of normal. Mild patchy right middle lobe infiltrate or atelectasis. Narrative 06/25/2024 10:47 PM SUPERVISOR COUNSELING AND GUIDANCE EXAM: XR CHEST 2 VIEWS LOCATION: [facility] DATE: 06/25/2024 INDICATION: Chest pain, SSC. COMPARISON: 06/16/2024. Procedure Note Jayden Correa MD - 06/25/2024 EXAM: XR CHEST 2 VIEWS LOCATION: [facility] DATE: 06/25/2024 INDICATION: Chest pain, SSC. COMPARISON: 06/16/2024. IMPRESSION: Bilateral portacatheter with tips in the SVC. Mild low lungvolumes. Heart size and pulmonary vascularity stable at the upper limitsof normal. Mild patchy right middle lobe infiltrate or atelectasis. us Polly Naylor MD IMG DIAGNOSTIC IMAGING ORDERABLE S Final Result * EKG 12-lead, tracing only (06/25/2024 10:19 PM SUPERVISOR COUNSELING AND GUIDANCE) Systolic Blood Pressure mmHg RADIOLOGY RESULTS Diastolic Blood Pressure mmHg RADIOLOGY RESULTS Ventricular Rate 87 BPM RAD IOLOGY RESULTS Atrial Rate 87 BPM RADIOLOG Y RESULTS WY Interval 162 ms RADIOLOG Y RESULTS QRS Duration 86 ms RADIOLO GY RESULTS QT 362 ms RADIOLOGY RESULTS QTc 435 ms RADIOLOGY RESULTS P [place] 54 degrees RADIOLOGY RESULTS R AXIS 84 degrees RADIOLOGY RESULTS T [place] 70 degrees RADIOLOGY RESULTS Interpretation ECG Sinus rhythm Normal ECG Unconfirmed report - interpretation of this ECG is computer generated - see medical record for final interpretation Confirmed by - EMERGENCY ROOM, PHYSICIAN ([id number]), graphic editor Nivia Willson ([id number]) on 06/25/2024 10:56:42 PM RADIOLOGY RESULTS 06/25/2024 10:1 9 PM SUPERVISOR COUNSELING AND GUIDANCE 06/25/2024 10:56 PM SUPERVISOR COUNSELING AND GUIDANCE Polly Naylor MD ECG ORDERABLES Edited Result - Final RADIOLOGY RESULTS * (ABNORMAL) UA with Microscopic reflex to Culture (06/25/2024 10:16 PM SUPERVISOR COUNSELING AND GUIDANCE) Color Urine Light Yellow Colorless, Straw, Light Yellow, Yellow 06/25/2024 10:33 PM SUPERVISOR COUNSELING AND GUIDANCE [facility] Appearance Urine Clear Clear 06/26/19 10:33 PM SUPERVISOR COUNSELING AND GUIDANCE [facility] Glucose Urine Negative Negative mg/dL 06/25/2024 10:33 PM SUPERVISOR COUNSELING AND GUIDANCE [facility] Bilirubin Urine Negative Negative 10:33 PM SUPERVISOR COUNSELING AND GUIDANCE [facility] Ketones Urine Negative Negative mg/dL 06/25/2024 10:33 PM SUPERVISOR COUNSELING AND GUIDANCE [facility] Specific [place] Urine 1.009 1.003 - 1.035 06/25/2024 10:33 PM SUPERVISOR COUNSELING AND GUIDANCE [facility] Blood Urine Negative Negative 06/25/2024 10:33 PM SUPERVISOR COUNSELING AND GUIDANCE [facility] pH Urine 7.5(H) 5.0 - 7.0 06/25/2024 10:33 PM SUPERVISOR COUNSELING AND GUIDANCE [facility] Protein Albumin Urine Negative Negative mg/dL 06/25/2024 10:33 PM SUPERVISOR COUNSELING AND GUIDANCE [facility] Urobilinogen Urine Normal Normal, 2.0 mg/dL 06/25/2024 10:33 PM SUPERVISOR COUNSELING AND GUIDANCE [facility] Nitrite Urine Negative Negative 06/25/2024 10:33 PM SUPERVISOR COUNSELING AND GUIDANCE [facility] Leukocyte Esterase Urine Negative Negative 06/25/2024 10:33 PM SUPERVISOR COUNSELING AND GUIDANCE [facility] RBC Urine 0 <=2 /HPF 06/25/2024 10:33 PM SUPERVISOR COUNSELING AND GUIDANCE [facility] WBC Urine 0 <=5 /HPF 06/25/2024 10:33 PM SUPERVISOR COUNSELING AND GUIDANCE [facility] Squamous Epithelials Urine 2(H) <=1 /HPF 06/25/2024 10:33 PM SUPERVISOR COUNSELING AND GUIDANCE [facility] Urine URINE SPECIMEN OBTAINED BY CLEAN CATCH PROCEDURE / Unknown Non-blood Collection / Unknown 06/25/2024 10:16 PM SUPERVISOR COUNSELING AND GUIDANCE 06/25/2024 10:23 PM SUPERVISOR COUNSELING AND GUIDANCE Narrative [facility] - 06/25/2024 10:33 PM SUPERVISOR COUNSELING AND GUIDANCE Urine Culture not indicated us Polly Naylor MD LAB - URINE ORDERABLES Final Res ult [facility] [place] [facility] [address] [facility], Room [address] [phone] * (ABNORMAL) CBC with platelets and differential (06/25/2024 10:15 PM SUPERVISOR COUNSELING AND GUIDANCE) WBC Count 12.5(H) 4.0 - 11.0 10e3/uL 06/25/2024 10:30 PM SUPERVISOR COUNSELING AND GUIDANCE [facility] RBC Count 2.32(L) 3.80 - 5.20 10e6/uL 06/25/2024 10:30 PM SUPERVISOR COUNSELING AND GUIDANCE [facility] Hemoglobin 7.8(L) 11.7 - 15.7 g/dL 06/25/2024 10:30 PM SUPERVISOR COUNSELING AND GUIDANCE [facility] Hematocrit 22.7(L) 35.0 - 47.0 % 06/25/2024 10:30 PM SUPERVISOR COUNSELING AND GUIDANCE [facility] MCV 98 78 - 100 fL 06/25/2024 10:30 PM SUPERVISOR COUNSELING AND GUIDANCE [facility] MCH 33.6(H) 26.5 - 33.0 pg 06/25/2024 10:30 PM SUPERVISOR COUNSELING AND GUIDANCE [facility] MCHC 34.4 31.5 - 36.5 g/dL 06/25/2024 10:30 PM SUPERVISOR COUNSELING AND GUIDANCE [facility] RDW 19.2(H) 10.0 - 15.0 % 06/25/2024 10:30 PM SUPERVISOR COUNSELING AND GUIDANCE [facility] Platelet Count 451(H) 150 - 450 10e3/uL 06/25/2024 10:30 PM SUPERVISOR COUNSELING AND GUIDANCE [facility] % Neutrophils 48 % 06/25/2024 10:30 PM SUPERVISOR COUNSELING AND GUIDANCE [facility] % Lymphocytes 39 % 06/25/2024 10:30 PM SUPERVISOR COUNSELING AND GUIDANCE [facility] % Monocytes 10 % 06/25/2024 10:30 PM SUPERVISOR COUNSELING AND GUIDANCE [facility] % Eosinophils 2 % 06/25/2024 10:30 PM SUPERVISOR COUNSELING AND GUIDANCE [facility] % Basophils 1 % 06/25/2024 10:30 PM SUPERVISOR COUNSELING AND GUIDANCE [facility] % Immature Granulocytes 1 % 06/25/2024 10:30 PM SUPERVISOR COUNSELING AND GUIDANCE [facility] NRBCs per 100 WBC 1(H) <1 /100 025 10:30 PM SUPERVISOR COUNSELING AND GUIDANCE [facility] Absolute Neutrophils 6.0 1.6 - 8.3 10e3/uL 06/25/2024 10:30 PM SUPERVISOR COUNSELING AND GUIDANCE [facility] Absolute Lymphocytes 4.8 0.8 - 5.3 10e3/uL 06/25/2024 10:30 PM SUPERVISOR COUNSELING AND GUIDANCE [facility] Absolute Monocytes 1.2 0.0 - 1.3 10e3/uL 06/25/2024 10:30 PM SUPERVISOR COUNSELING AND GUIDANCE [facility] Absolute Eosinophils 0.2 0.0 - 0.7 10e3/uL 06/25/2024 10:30 PM SUPERVISOR COUNSELING AND GUIDANCE [facility] Absolute Basophils 0.1 0.0 - 0.2 10e3/uL 06/25/2024 10:30 PM SUPERVISOR COUNSELING AND GUIDANCE [facility] Absolute Immature Granulocytes 0.1 <=0.4 10e3/uL 06/25/2024 10:30 PM SUPERVISOR COUNSELING AND GUIDANCE [facility] Absolute NRBCs 0.2 10e3/uL 06/25/2024 10:30 PM SUPERVISOR COUNSELING AND GUIDANCE [facility] Blood BLOOD SPECIMEN / Unknown IVAD (Port) / Unknown 06/25/2024 10:15 PM SUPERVISOR COUNSELING AND GUIDANCE 06/25/2024 10:24 PM SUPERVISOR COUNSELING AND GUIDANCE us Polly Naylor MD LAB - BLOOD ORDERABLES Final Res ult [facility] [place] [facility] [address] [facility], Room [address] [place] [phone] * Troponin T, High Sensitivity (06/25/2024 10:15 PM SUPERVISOR COUNSELING AND GUIDANCE) [facility] [address] Troponin T, High Sensitivity <6 <=14 ng/L 06/25/2024 10:51 PM SUPERVISOR COUNSELING AND GUIDANCE [facility] Comment: Either a High Sensitivity [...] IVAD (Port) / Unknown 06/25/2024 10:15 PM SUPERVISOR COUNSELING AND GUIDANCE 06/25/2024 10:24 PM SUPERVISOR COUNSELING AND GUIDANCE us Polly Naylor MD LAB - BLOOD ORDERABLES Final Res ult [facility] [address] [facility], [address] [phone] * (ABNORMAL) Basic metabolic panel (06/25/2024 10:15 PM SUPERVISOR COUNSELING AND GUIDANCE) [facility] [address] Sodium 137 135 - 145 mmol/L 06/25/2024 10:51 PM SUPERVISOR COUNSELING AND GUIDANCE [facility] Potassium 3.7 3.4 - 5.3 mmol/L 06/25/2024 10:51 PM SUPERVISOR COUNSELING AND GUIDANCE [facility] Chloride 107 98 - 107 mmol/L 06/25/2024 10:51 PM SUPERVISOR COUNSELING AND GUIDANCE [facility] Carbon Dioxide (CO2) 22 22 - 29 mmol/L 06/25/2024 10:51 PM SUPERVISOR COUNSELING AND GUIDANCE [facility] Anion Gap 8 7 - 15 mmol/L 06/25/2024 10:51 PM SUPERVISOR COUNSELING AND GUIDANCE [facility] Urea Nitrogen 6.7 6.0 - 20.0 mg/dL 06/25/2024 10:51 PM SUPERVISOR COUNSELING AND GUIDANCE [facility] Creatinine 0.69 0.51 - 0.95 mg/dL 06/25/2024 10:51 PM SUPERVISOR COUNSELING AND GUIDANCE [facility] GFR Estimate >90 >60 mL/min/1.7 3m2 06/25/2024 10:51 PM SUPERVISOR COUNSELING AND GUIDANCE [facility] Comment:eGFR calculated us2020 CKD-EPI equation. Calcium 8.7(L) 8.8 - 10.4 mg/dL 06/25/2024 10:51 PM SUPERVISOR COUNSELING AND GUIDANCE [facility] Glucose 87 70 - 99 mg/dL 06/25/2024 10:51 PM SUPERVISOR COUNSELING AND GUIDANCE [facility] Blood BLOOD SPECIMEN / Unknown IVAD (Port) / Unknown 06/25/2024 10:15 PM SUPERVISOR COUNSELING AND GUIDANCE 06/25/2024 10:24 PM SUPERVISOR COUNSELING AND GUIDANCE us Polly Naylor MD LAB - BLOOD ORDERABLES Final Res ult [facility] [place] [facility] [address] [facility], Room [address] [place] [address] documented in this [...] For 1 dose $Given 06/25/2024 10:39 PM SUPERVISOR COUNSELING AND GUIDANCE 25 mg heparin lock flush 100 unit/mL [...] each port lumen $Given 06/26/2024 12:55 AM SUPERVISOR COUNSELING AND GUIDANCE 5 mLs hydromorphone (DILAUDID) injection 2 mg 2 mg, Intravenous, EVERY 1 HOUR PRN, severe pain, moderate pain, Starting on 06/25/24 at 2151, For 3 doses $Given 06/26/2024 12:37 AM SUPERVISOR COUNSELING AND GUIDANCE 2 mg $Given 06/25/2024 11:42 PM SUPERVISOR COUNSELING AND GUIDANCE 2 mg $Given 06/25/2024 10:36 PM SUPERVISOR COUNSELING AND GUIDANCE 2 mg ondansetron (ZOFRAN) injection 8 mg 8 mg, Intravenous, ONCE, Administer over 2-5 Minutes, On 06/25/24 at 2155, For 1 dose $Given 06/25/2024 10:38 PM SUPERVISOR COUNSELING AND GUIDANCE 8 mg sodium chloride 0.9% BOLUS 1,000 mL Intravenous, 1,000 mL, ONCE, at 500 mL/hr, Administer over 2 Hours, On Wed06/25/24 at 2205, For 1 dose $New Bag 06/25/2024 10:18 PM SUPERVISOR COUNSELING AND GUIDANCE 1,000 mLs 500 mL/hr documented in this encounter Active and Recently Administered Medications Times are shown in SUPERVISOR COUNSELING AND GUIDANCE. Scheduled Medication Order 06/24/2024 06/25/2024 06/26/2024 diphenhydrAMINE [...] RN) documented in this encounter Care Teams Verifier Relationship Specialty Start Date End Date Veronica Joseph MD [address] [place] [address] PCP - General Family Medicine 06/18/24 Mor Ramsey Medical Student 04/03/24 Case Samuel MD [address] [place] [address] 484, [address] [place], [place] [phone] Assigned Pediatric Specialist Provider 05/18/24 Juhi Benson, SOFIA Specialty Photovoltaic Solar Cell Designer Hematology & Oncology 05/29/24 documented as of this encounter
--- OUTSIDE RECORDS SUMMARY | 2024-07-28 21:36 | XMS_ITS | Encounter Summary ---
Author Organization [facility] Address [address] [place] [address]. [place] [address] Care Team Providers Care Sole Painter Name Role Phone Roxy Mor Unavailable Unavailable Case Samuel MD Unavailable [phone] Juhi Benson RN Unavailable Unavailable Veronica Joseph MD Primary Care Provider [phone] Encounter Details Date Type Department Care Team [...] file Legal Sex Female 8:25 AM SECOND WORKER Gender Identity Not on file Sexual Orientation Not on file documented as of this encounter Plan of Treatment Upcoming Encounters Date Type Department Care Team (Late st Contact Info) Description 08/07/2024 7:15 AM CDT Lab [facility] Cancer [address] [phone] Case Samuel MD [address] [place] [address], ROOM [address] [address] 08/08/2024 8:00 AM CDT Appointment [facility] Advanced Treatment [address] [phone] Case Samuel MD [address] [place] [address], ROOM [address] [address] 10/30/2024 11:30 AM CDT Lab [facility] Cancer [address] [phone] Case Samuel MD [address] [place] [address], ROOM [address] [address] 10/30/2024 12:00 PM CDT Oncology Visit [facility] Cancer [address] [phone] Case Samuel MD [address] [facility] 484, [address] [place] [address] documented as of this encounter Goals Goal [...] on filedocumented in this encounter Care Teams Sole Painter Relationship Specialty Start Date End Date Veronica Joseph MD [address] [place] [address] PCP - General Family Medicine 06/18/24 Mor Ramsey Medical Student 04/03/24 Case Samuel MD [address] [facility] 484, [address] [place] [address] Assigned Pediatric Specialist Provider 05/18/24 Juhi Benson, RN Specialty Impregnator [employer] Products Hematology & Oncology 05/29/24 documented as of this encounter
--- OUTSIDE RECORDS SUMMARY | 2024-07-28 21:36 | XMS_ITS | Encounter Summary ---
Author Organization [facility] Address [address] [place] [address]. [place] [address] Care Team Providers Care Grand Scribe Name Role Phone RoxyElvirac Unavailable Unavailable Case Samuel MD Unavailable [phone] Juhi Benson RN Unavailable Unavailable Veronica Joseph MD Primary Care Provider [phone] Reason for Visit * Reason Comments Sickle Cell Pain Crisis Encounter Details Date Type Department Care Team ([facility] st Contact Info) Description 07/05/2024 6:57 PM CDT - 07/05/2024 10:36 PM CDT Emergency [facility] Emergency Department [address] [place] [phone] Vasiliy Lyle MD [address] [place] [address] Sickle cell disease with crisis (H) Discharge [...] on file 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 * Sickle Cell Crisis (Bermudian) documented in this encounter Medications at Time [...] 05/01/2024 naloxone (NARCAN) 4 MG/0.1ML nasal spray [place] 1 spray (4 mg) into one nostril [...] 07/05/2024 7:00 PM CDT ED Provider Note [facility] History Chief Complaint Patient presents with 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, had port-a-cath in [facility] Functional asplenia Gallstones Hb-SS disease [...] Narrative EXAM: XR CHEST 2 VIEWS LOCATION: [facility] DATE: 07/05/2024 INDICATION: chest pain [...] Status --------- ------ CBC with platelets and ...[[id number]] Abnormal Final result Please view results for [...] Wilkinson, am serving as a trained medical housekeeper to document services personally performed by Vasiliy Lyle MD, based on the provider's statements to me. I, Vasiliy Lyle MD, was physically present and have reviewed and verified the accuracy of this note documented by Tatiana Wilkinson. Vasiliy Lyle MD [facility] EMERGENCY DEPARTMENT 07/05/2024 Vasiliy Lyle MD 07/05/246 * Manan Alva RN - 07/05/2024 6:56 [...] 2024 Triage Assessment (Adult) Row Name 07/05/24 4166 Triage Assessment Airway WDL WDL Respiratory WDL Respiratory WDL WDL Cardiac WDL Cardiac WDL WDL documented in this encounter Plan of Treatment Upcoming Encounters Date Type Department Care Team (Late st Contact Info) Description 08/07/2024 7:15 AM CDT Lab [facility] [address] [place] [address] Case Samuel MD [address] [place] [address], [address] [place] [address] 08/08/2024 8:00 AM CDT Appointment [facility] [place] [address] [place] [phone] Case Samuel MD [address] [place] [address], [address] [place], [place] [phone] 10/30/2024 11:30 AM CDT Lab [facility] Cancer [facility] [address] [place] [phone] Case Samuel MD [address] [facility] 484, [address] [place] [address] 10/30/2024 12:00 PM CDT Oncology Visit [facility] Cancer [facility] [address] [place] [phone] Case Samuel MD [address] [facility] 484, [address] [place] [address] documented as of this encounter Goals Goal [...] Blood Cells [facility] B[facility]OD [facility]ANK Product Code L8227W70 [facility] BLOO D BANK Unit Status Transfused [facility] BLOO D BANK Unit Number [id number] UU B LOOD BANK CROSSMATCH COMPATIBLE UU BLOOD BANK CODING SYSTEM [id number] UU BLO OD BANK ISSUE DATE AND TIME [id number] [facility] BLOOD BANK UNIT ABO/RH A+ [facility] BLO[facility] BANK UNIT TYPE ISBT 6200 [facility] BL OOD BANK 07/05/2024 11:3 5 PM CDT us Doctor Unknown BLOOD BANK PRODUCT ORDERABLES Final Result [facility] [address] [place] [address], [facility] * Prepare red blood cells (unit) (07/05/2024 11:35 PM CDT) Blood Component Type Red Blood Cells [facility] Product Code D4214G00 [facility] BLOO D BANK Unit Status Transfused [facility] BLOO D BANK Unit Number [id number] UU B LOOD BANK CROSSMATCH COMPATIBLE UU BLOOD BANK CODING SYSTEM [id number] UU BLO OD BANK ISSUE DATE AND TIME [id number] UU BLOOD BANK UNIT ABO/RH A+ UU BLOOD BANK UNIT TYPE ISBT 6200 [facility] BL OOD BANK 07/05/2024 11:3 5 PM CDT Doctor Unknown BLOOD BANK PRODUCT ORDERABLES Final Result Performing Organization Address [facility] de Phone Number [facility] BLOOD BANK [address] * Prepare red blood cells (unit) (07/05/2024 11:35 PM CDT) Blood Component Type Red Blood Cells [facility]LOOD BANK Product Code V7627X77 [facility] BLOO D BANK Unit Status Transfused [facility] BLOO D BANK Unit Number [id number] UU B LOOD BANK CROSSMATCH COMPATIBLE UU BLOOD BANK CODING SYSTEM [id number] UU BLO OD BANK ISSUE DATE AND TIME [id number] UU BLOOD BANK UNIT ABO/RH O+ UU BLOOD BANK UNIT TYPE ISBT 5100 U[facility] BL OOD BANK 07/05/2024 11:3 5 PM CDT us Doctor Unknown BLOOD BANK PRODUCT ORDERABLES Final Result Performing Organization Address [facility] de Phone Number [facility] BLO[facility] B[facility] [address] * Prepare red blood cells (unit) (07/05/2024 11:35 PM CDT) Blood Component Type Red Blood Cells [facility] Product Code [id number] [facility] BLOO D BANK Unit Status Transfused [facility] BLOO D BANK Unit Number [id number] UU B LOOD BANK CROSSMATCH COMPATIBLE UU BLOOD BANK CODING SYSTEM [id number] UU BLO OD BANK ISSUE DATE AND TIME [id number] UU BLOOD BANK UNIT ABO/RH O+ UU BLOOD BANK UNIT TYPE ISBT 5100 U[facility] BL OOD BANK 07/05/2024 11:3 5 PM CDT Doctor Unknown BLOOD BANK PRODUCT ORDERABLES Final Result [facility] BLOOD BANK [address] [place] [address], [place] * Prepare red blood cells (unit) (07/05/2024 11:35 PM CDT) Blood Component Type Red Blood Cells [facility] BLOOD BANK Product Code C8570S97 UU BLOO D BANK Unit Status Transfused [facility]U BLOO D BANK Unit Number [id number] UU B LOOD BANK CROSSMATCH COMPATIBLE UU BLOOD BANK CODING SYSTEM [id number] UU BLO OD BANK ISSUE DATE AND TIME [id number] UU BLOOD BANK UNIT ABO/RH A+ UU BLOOD BANK UNIT TYPE ISBT 6200 [facility] BL OOD BANK 07/05/2024 11:3 5 PM CDT Doctor Unknown BLOOD BANK PRODUCT ORDERABLES Final Result Performing Organization Address [facility] Co de Phone Number UU BLOOD BANK [address] [place] [address], [place] * (ABNORMAL) CBC with platelets and [...] BLOOD ORDERABLES Final Result Performing Organization Address [facility]/ZIP Co de Phone Number [facility] LABORATORY [facility] 500 [facility], [address] [phone] * (ABNORMAL) Reticulocyte count (07/05/2024 8:06 PM CDT) % Reticulocyte 18.4(H) 0.5 - 2.0 % 07/05/2024 8:50 PM CDT [facility] LAB[facility] Absolute Reticulocyte 0.478(H) 0.025 - 0.095 10e6/uL 07/05/2024 8:50 PM CDT [facility] Blood BLOOD SPECIMEN / Unknown Venipuncture / Unknown 07/05/2024 8:06 PM CDT 07/05/2024 8:19 PM CDT Vasiliy Lyle MD LAB - BLOOD ORDERABLES Final Result Performing Organization Address [facility] de Phone Number [facility] 500 [facility], [address] [phone] * (ABNORMAL) Basic metabolic panel (07/05/2024 8:06 [...] - BLOOD ORDERABLES Final Result UR LABORATORY [facility] Acute Care Lab [address] [facility], Room [address] [place] [address], [facility] LABOR[facility] Core Lab 500 [facility], Room 3-580 [place] [address], [facility] * XR Chest 2 Views (07/05/2024 7:33 [...] CDT EXAM: XR CHEST 2 VIEWS LOCATION: [facility] DATE: 07/05/2024 INDICATION: chest pain and SCC, r o acute chest COMPARISON: Chest radiograph and CTA chest 06/26/2024. Procedure Note Darius Swan MD - 07/05/2024 EXAM: XR CHEST 2 VIEWS LOCATION: [facility] DATE: 07/05/2024 INDICATION: chest pain [...] RN) documented in this encounter Care Teams Grand Scribe Relationship Specialty Start Date End Date Veronica Joseph MD [address] [place] [address] PCP - General Family Medicine 06/18/24 Mor Ramsey Medical Student 04/03/24 Case Samuel MD [address] [place] [address], [address] [place] [address] Assigned Pediatric Specialist Provider 05/18/24 Juhi Benson, RN Specialty Propulsion Engineer Hematology & Oncology 05/29/24 documented as of this encounter
--- OUTSIDE RECORDS SUMMARY | 2024-07-28 21:36 | XMS_ITS | Encounter Summary ---
Author Organization [facility] Address [address] [place] [address]. 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 Gender Identity Not on file Sexual Orientation Not on file documented as of this encounter Plan of Treatment Upcoming Encounters Date Type Department Care Team (Late st Contact Info) Description 08/07/2024 7:15 AM CDT Lab [facility] Cancer [address] [phone] Case Samuel MD [address] [place] [address], [address] [address] 08/08/2024 8:00 AM CDT Appointment [facility] Advanced Treatment [address] [phone] Case Samuel MD [address] [place] [address], [address] [address] 10/30/2024 11:30 AM CDT Lab [facility] Cancer [address] [phone] Case Samuel MD [address] [place] [address], [address] [address] 10/30/2024 12:00 PM CDT Oncology Visit [facility] Cancer [address] [phone] Case Samuel MD 420 [facility] 484, [address] [place] [address] documented as of this encounter Goals Goal [...] on filedocumented in this encounter Care Teams Gut Carrier Relationship Specialty Start Date End Date Veronica Joseph MD [address] [address] PCP - General Family Medicine 06/18/24 Mor Ramsey Medical Student 04/03/24 Case Samuel MD 420 [facility] 484, [address] [place] [address] Assigned Pediatric Specialist Provider 05/18/24 Juhi [facility], RN Specialty Archives Technician Hematology & Oncology 05/29/24 documented as of this encounter
--- OUTSIDE RECORDS SUMMARY | 2024-07-28 21:36 | XMS_ITS | Encounter Summary ---
Author Organization [facility] [facility] Address [address] [place] [address]. 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 Advanced Treatment [address] [phone] Case Samuel MD [address] [place] [address], RO[address] [address] 10/30/2024 11:30 AM CDT Lab [facility] Cancer [address] [phone] Case Samuel MD [address] [place] [address], ROOM [address] [address] 10/30/2024 12:00 PM CDT Oncology Visit [facility] Cancer [address] [phone] Case Samuel MD [address] [facility] 484, [address] [place] [address] documented as of this encounter Goals Goal [...] on filedocumented in this encounter Care Teams Automobile Glass Technician Relationship Specialty Start Date End Date Veronica Joseph MD [address] [place] [address] PCP - General Family Medicine 06/18/24 Mor Ramsey Medical Student 04/03/24 Case Samuel MD [address] [facility] 484, [address] [place] [address] Assigned Pediatric Specialist Provider 05/18/24 Juhi Benson, RN Specialty Radiologic Technologist Hematology & Oncology 05/29/24 documented as of this encounter
--- OUTSIDE RECORDS SUMMARY | 2024-07-28 21:36 | XMS_ITS | Encounter Summary ---
Author Organization [facility] Address [address] [place] [address] Care Team Providers Care Weatherization Technician Name Role Phone Mor Ramsey Unavailable Unavailable Case Samuel MD Unavailable [phone] Juhi Benson RN Unavailable Unavailable Veronica Joseph MD Primary Care Provider [phone] Reason for Referral * Outpatient (Routine) - Pending Review Specialty Diagnoses / Procedures Referred By Shahid pendleton Referred To Contact Procedures Red Blood Cell Exchange [address] [address] Phone: tel: fax: Referral ID Status Reason Start Date Expiration Date V isits Requested Visits Authorized [id number] Pending Review 07/06/2024 07/06/2025 1 1 Reason for Visit * Outpatient (Routine) - Closed Specialty Diagnoses / Procedures Referred By Shahid pendleton Referred To Contact Lab Diagnoses 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 The phone number is [phone]. A Transfusion Medicine physician can be reached after 5:00 p.m. weekdays and on weekends /Holidays by calling [phone], and asking for the physician application designer. Red blood cell exchange: If you received [...] inform the Transfusion Medicine Physician by calling [phone] and asking for the physician application designer. documented in this encounter Medications at Time [...] 05/01/2024 naloxone (NARCAN) 4 MG/0.1ML nasal spray [place] 1 spray (4 mg) into one nostril [...] CELL EXCHANGE Transfusion Medicine Consultation Gianna Hernández [id number] Date of : 1995 Age: [age] year [...] S negative, fresh,and matched for Rh and Parthenon. We discussed the use of the blood 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, had port-a-cath in [facility] Functional asplenia Gallstones Hb-SS disease without [...] inadequate. naloxone (NARCAN) 4 MG/0.1ML nasal spray [place] 1 spray (4 mg) into one nostril [...] Emelina Rodriguez MD, PhD Transfusion Medicine Attending Resident Programs Assistant, Blood Bank Laboratory Pager [phone] documented in this encounter Consult Notes * Lynn Aguilar MD - 07/05/2024 2:45 PM CDT Transfusion Medicine Consultation Gianna Hernández [id number] Date of : 1995 Age: [age] year 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, had port-a-cath in [facility] Functional asplenia Gallstones Hb-SS disease without [...] 11 naloxone (NARCAN) 4 MG/0.1ML nasal spray [place] 1 spray (4 mg) into one nostril [...] MD Anatomic and Clinical Pathology Resident, PGY2 [facility] Cosigned by Emelina Rodriguez MD at 07/16/2024 8:50 PM CDT Associated attestation - Emelina Rodriguez MD - 07/16/2024 8:50 PM CDT ATTESTATION STATEMENT: I, Emelina Rodriguez MD, PhD, have reviewed the patient's pertinent lab and clinical data. I have discussed this patient with the trainee, and I agree with their assessment, as outlined in this note. Emelina Rodriguez MD, PhD Transfusion Medicine Attending Resident Programs Assistant, Blood Bank Laboratory Pager [phone] documented in this encounter Plan of Treatment Upcoming Encounters Date Type Department Care Team (Late st Contact Info) Description 08/07/2024 7:15 AM CDT Lab [facility] Cancer [address] [phone] Case Samuel MD [address] [place] [address], [address] [address] 08/08/2024 8:00 AM CDT Appointment [facility] Advanced Treatment [address] [phone] Case Samuel MD [address] [place] [address], RO[address] [address] 10/30/2024 11:30 AM CDT Lab [facility] Cancer [address] [phone] Case Samuel MD [address] [place] [address], RO[address] [address] 10/30/2024 12:00 PM CDT Oncology Visit [facility] [address] [phone] Case Samuel MD [address] [place] [address], [address] [place] [address] documented as of this encounter Goals Goal [...] PM Transfusion Medicine Consultation Gianna Mayberry Edgar [id number] Date of : 1995 Age: [age] year [...] negative, fresh, and matched for Rh and Parthenon. We discussed the use of the blood 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, had port-a-cath in [facility] Functional asplenia Gallstones Hb-SS disease without [...] inadequate. naloxone (NARCAN) 4 MG/0.1ML nasal spray [place] 1 spray (4 mg) into one nostril [...] performed with 5units of RBCs (Rh and Parthenon matched, fresh, Hgb S negative). The patient's [...] Emelina Rodriguez MD, PhD Transfusion Medicine Attending Resident Programs Assistant, Blood Bank Laboratory Pager [phone] us Lynn Aguilar MD IP APHERESIS Final [...] ult [facility] SPECIALTY CORE/PROT/ENDO Specialty Core/Prot/Endo 500 [facility], Room [address] [place] [address] * (ABNORMAL) Hemoglobin and hematocrit (07/06/2024 11:12 AM CDT) Hemoglobin 8.8(L) 11.7 - 15.7 g/dL 07/06/2024 11:20 AM CDT [facility] Hematocrit 25.5(L) 35.0 - 47.0 % 07/06/2024 11:20 AM CDT [facility] Blood BLOOD SPECIMEN / Unknown IVAD (Port) / Unknown 07/06/2024 11:12 AM CDT 07/06/2024 11:17 AM CDT us Lynn Aguilar MD LAB - BLOOD ORDERABLES Final Res ult [facility] Clinics and Surgery [facility] [address] [facility] 1st [place] [address] * (ABNORMAL) Hemoglobin S with Reflex to [...] ult SPECIALTY CORE/PROT/ENDO Specialty Core/Prot/Endo 500 [facility] J Building, Room [address] * (ABNORMAL) Hemoglobin and hematocrit (07/06/2024 8:49 AM CDT) Hemoglobin 8.0(L) 11.7 - 15.7 g/dL 07/06/2024 9:27 AM CDT [facility] Hematocrit 23.4(L) 35.0 - 47.0 % 07/06/2024 9:27 AM CDT [facility] Blood VENOUS BLOOD / Unknown IVAD (Port) / Unknown 07/06/2024 8:49 AM CDT 07/06/2024 9:25 AM CDT us Lynn Aguilar MD LAB - BLOOD ORDERABLES Final Res ult [facility] [place] [address] [facility] 1st Floor [place] [address] documented in this encounter Visit Diagnoses Not [...] mLs documented in this encounter Care Teams Weatherization Technician Relationship Specialty Start Date End Date Veronica Joseph MD [address] [place] [address] PCP - General Family Medicine 06/18/24 Mor Ramsey Medical Student 04/03/24 Case Samuel MD [address] [place] [address], [address] [place] [address] Assigned Pediatric Specialist Provider 05/18/24 Juhi [facility], RN Specialty Vault Custodian Hematology & Oncology 05/29/24 documented as of this encounter
--- OUTSIDE RECORDS SUMMARY | 2024-07-28 21:36 | XMS_ITS | Encounter Summary ---
Author Organization [facility] Address [address] [place] [address]. [place] [address] Care Team Providers Care Computer Operations Analyst Name Role Phone RoxyElvirac Unavailable Unavailable Case Samuel MD Unavailable [phone] Juhi Benson RN Unavailable Unavailable Veronica Joseph MD Primary Care Provider [phone] Reason for Visit * Reason Comments Abnormal Labs hemoglobin Sickle Cell Pain Crisis Back/ legs Encounter Details Date Type Department Care Team (Late st Contact Info) Description 07/02/2024 5:47 PM CDT - 07/02/2024 9:37 PM CDT Emergency [facility] Emergency Department [address] [place] [phone] Vasiliy Lutz, [address] [address] Sickle cell pain crisis (H) Discharge Disposition: [...] on file 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 [facility] ([facility]) 07/02/24 ED PROVIDER NOTE History Chief [...] file Final diagnoses: None Vasiliy Lutz DO [facility] EM[facility] 07/02/2024 Vasiliy Lutz DO 07/03/24 [...] 7:15 AM CDT Lab [facility] [address] [phone] Case Samuel MD [address] [place] [address], [address] 15[address] 08/08/2024 8:00 AM CDT Appointment [facility] [address] [phone] Case Samuel MD [address] [place], [place] [address], ROOM [address] [address] 10/30/2024 11:30 AM CDT Lab [facility] [address] [phone] Case Samuel MD [address] [place], [place] [address], RO[address] 848[address] 10/30/2024 12:00 PM CDT Oncology Visit [facility] [address] [phone] Case Samuel MD [address] [facility] [address], [address] [place] [address] documented as of this encounter Goals Goal [...] ORDERABLES Fi nal Result [facility] Lab [address] [facility], Room 3-580 [place] [address], [facility] * Adult Type and Screen (07/02/2024 7:03 PM CDT) Pathologist [facility] ABO/RH(D) A POS 07/02/2024 6:10 PM CDT [facility] BLOOD BANK Antibody Screen Negative Negative 07/02/2024 6:10 PM CDT [facility] BLOOD BANK SPECIMEN EXPIRATION DATE [id number] 07/02/2024 6:10 PM CDT [facility] B[facility] B[facility] Blood BLOOD SPECIMEN / Unknown Venipuncture / Unknown 07/02/2024 7:03 PM CDT 07/02/2024 7:13 PM CDT Vasiliy Lutz DO LAB - BLOOD BANK TEST ORD ER Final Result U BLOOD BANK [address] [place] [phone] * (ABNORMAL) CBC with platelets and differential (07/02/2024 7:03 PM CDT) [facility] WBC Count 10.1 4.0 - 11.0 10e3/uL [...] BLOOD ORDERABLES Fi nal Result [facility] [place] [facility] [address] [facility], Room 3[address] [place] [phone] * (ABNORMAL) Comprehensive metabolic panel (07/02/2024 [...] BLOOD ORDERABLES Fi nal Result [facility] [place] [facility] [address] [facility], Room 3[address] [place] [phone] documented in this encounter Visit [...] this section may contain times in both ARMATURE WINDER AUTOMOTIVE and CDT. Scheduled Medication Order 06/30/2024 07/01/2024 [...] RN) documented in this encounter Care Teams Computer Operations Analyst Relationship Specialty Start Date End Date Veronica Joseph MD [address] [place] [address] PCP - General Family Medicine 06/18/24 Mor Ramsey Medical Student 04/03/24 Case Samuel MD [address] [place] [address], [address] [place] [address] Assigned Pediatric Specialist Provider 05/18/24 Juhi Benson, SOFIA Specialty Machine Molder Hematology & Oncology 05/29/24 documented as of this encounter
--- OUTSIDE RECORDS SUMMARY | 2024-07-28 21:36 | XMS_ITS | Encounter Summary ---
Author Organization [facility] Address [address] [place] [address]. 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 Gender Identity Not on file Sexual Orientation Not on file documented as of this encounter Plan of Treatment Upcoming Encounters Date Type Department Care Team (Late st Contact Info) Description 08/07/2024 7:15 AM CDT Lab [facility] [address] [phone] Case Samuel MD [address] [place] [address], ROOM [address] [address] 08/08/2024 8:00 AM CDT Appointment [facility] Advanced Treatment [address] [phone] Case Samuel MD [address] [place] [address], ROOM [address] [address] 10/30/2024 11:30 AM CDT Lab [facility] [address] [phone] Case Samuel MD [address] [place] [address], ROOM [address] [address] 10/30/2024 12:00 PM CDT Oncology Visit [facility] [address] [phone] Case Samuel MD [address] [facility] 484, [address] [place] [address] documented as of this encounter Goals Goal [...] on filedocumented in this encounter Care Teams Transplant Registered Nurse Relationship Specialty Start Date End Date Veronica Joseph MD [address] [place] [address] PCP - General Family Medicine 06/18/24 Mor Ramsey Medical Student 04/03/24 Case Samuel MD [address] [facility] 484, [address] [place] [address] Assigned Pediatric Specialist Provider 05/18/24 Juhi Benson, RN Specialty Food Safety Coordinator Hematology & Oncology 05/29/24 documented as of this encounter
--- OUTSIDE RECORDS SUMMARY | 2024-07-28 21:36 | XMS_ITS | Encounter Summary ---
Author Organization [facility] Address [address] [place] [address] Care Team Providers Care Hoop Punch Operator Helper Name Role Phone RoxyElvirac Unavailable Unavailable Case Samuel MD Unavailable [phone] Juhi Benson RN Unavailable Unavailable Veronica Joseph MD Primary Care Provider [phone] Reason for Visit * Reason Comments Sickle Cell Pain Crisis Encounter Details Date Type Department Care Team (Late st Contact Info) Description 07/04/2024 4:28 PM CDT - 07/04/2024 8:27 PM CDT Emergency [facility] Emergency Department [address] [place] [phone] Richar Mahajan MD [address] [place] [phone] Sickle cell pain crisis (H); Hb-SS disease [...] on file Legal Sex Female 8:25 AM ROLL ON MAN Gender Identity Not on file Sexual [...] clinics below: - [facility] (phone: [phone]) - Primary Care / [facility] (phone: [phone]) - Have your clinic provider review the [...] 05/01/2024 naloxone (NARCAN) 4 MG/0.1ML nasal spray [place] 1 spray (4 mg) into one nostril [...] RN - 07/04/2024 5:23 PM CDT Bed: [facility] Expected date: Expected time: Means of arrival: Comments: Sickle cell-CG * Richar Mahajan MD - 07/04/2024 4:07 PM CDT Images from the original note were not included. [place] [facility] ([facility]) 07/04/24 ED PROVIDER NOTE History Chief [...] Rate 79 BPM Atrial Rate 79 BPM OR Interval 148 ms QRS Duration 74 ms QT 350 ms QTc 401 ms P [place] 63 degrees R AXIS 54 degrees T [place] 32 degrees Interpretation ECG Sinus rhythm Normal ECG CBC with platelets differential Status: Abnormal Narrative The following orders were created for panel order CBC with platelets differential. Procedure Abnormality Status --------- ------ CBC with platelets and ...[[id number]] Abnormal Final result RBC and Platelet Morpho...[[id number]] Abnormal Final result Please view results for [...] Da Silva PA-C Emergency Medicine [facility] EMERGENCY DEPARTMENT 07/04/2024orsening symptoms, new symptoms, or any urgent health concerns. I have reviewed the nursing notes. I have reviewed the findings, diagnosis, plan and need for follow up with the patient. Discharge Medication List as of 07/04/2024 8:21 PM Final diagnoses: Sickle cell pain crisis (H) [facility] EMERGENCY DEPARTMENT 07/04/2024 Vasiliy Da Silva 07/04/242046 [...] least in part by the use of [employer] voice dictation system. Inadvertent typographical errors may still exist. Richar Mahajan MD. Patient evaluated in the emergency department during the COVID-19 pandemic period. Careful attention to patients safety was addressed throughout the evaluation. Evaluation and treatment management was initiated with disposition made efficiently and appropriate as possible to minimize any risk of potential exposure to patient during this evaluation. Richar Mahajan MD 07/04/24 3590 * Juliana Brothers RN - 07/04/2024 4:07 PM CDT Presents to triage ambulatory c/o sickle cell crisis for last few days. Tried getting into infusionclinic but no availability. Reports left sided chest pain associated with recent blood clot diagnosis in left long. Endorses SOB. Rating pain 9/10. Triage Assessment (Adult) Row Name 07/04/24 0569 Triage Assessment Airway WDL WDL Respiratory WDL [...] [facility] Cancer [address] [phone] Case Samuel MD [address] [place] [address], [address] [address] 08/08/2024 8:00 AM CDT Appointment [facility] [address] [phone] Case Samuel MD [address] [place] [address], [address] [address] 10/30/2024 11:30 AM CDT Lab [facility] Cancer [address] [phone] Case Samuel MD [address] [place] [address], RO[address] [address] 10/30/2024 12:00 PM CDT Oncology Visit [facility] Cancer [address] [phone] Case Samuel MD [address] [place] [address], [address] [address] documented as of this encounter Goals Goal [...] Atrial Rate 79 BPM RADIOLOG Y RESULTS OR Interval 148 ms RADIOLOG Y RESULTS QRS Duration 74 ms RADIOLO GY RESULTS QT 350 ms RADIOLOGY RESULTS QTc 401 ms RADIOLOGY RESULTS P [place] 63 degrees RADIOLOGY RESULTS R AXIS 54 degrees RADIOLOGY RESULTS T [place] 32 degrees RADIOLOGY RESULTS Interpretation ECG Sinus rhythm Normal ECG Unconfirmed report - interpretation of this ECG is computer generated - see medical record for final interpretation Confirmed by - EMERGENCY ROOM, PHYSICIAN ([id number]), video news editor Stefani Strickland ([id number]) on 07/05/2024 11:00:27 AM RADIOLOGY RESULTS 07/04/2024 5:25 PM CDT 07/05/2024 11:00 AM CDT Vasiliy Lesliemick ECG ORDERABLES Edited Result - Final RADIOLOGY RESULTS * Adult Type and Screen (07/04/2024 5:23 PM CDT) Pathologist [facility] ABO/RH(D) A POS 07/05/2024 9:25 AM CDT UU BLOOD BANK Antibody Screen Negative Negative 07/05/2024 9:25 AM CDT U BLOOD BANK Comment:Current antibody scr een is negative. Patient has a history of antibody(ies). A delay in compatible red blood cells may occur. SPECIMEN EXPIRATION DATE [id number] 07/05/2024 9:25 AM CDT U BLOOD BANK Blood BLOOD SPECIMEN / Unknown Venipuncture / Unknown 07/04/2024 5:23 PM CDT 07/05/2024 9:24 AM CDT Case Samuel MD LAB - BLOOD BANK TEST ORD ER Final Result [facility] BLOOD BANK [address] [place] [address], [facility] * (ABNORMAL) RBC and Platelet Morphology (07/04/2024 [...] Res ult [facility] [place] Core Lab [address] [facility], Room 3-580 [place] [address] * [...] Res ult [facility] [place] [facility] Lab [address] [facility], Room [address] [place] [address] * (ABNORMAL) Reticulocyte count (07/04/2024 5:23 PM CDT) [facility] % Reticulocyte 18.2(H) 0.5 - 2.0 % 07/04/2024 5:37 PM CDT [facility] LABORATORY Absolute Reticulocyte 0.471(H) 0.025 - 0.095 10e6/uL 07/04/2024 5:37 PM CDT [facility] LABORATORY Blood BLOOD SPECIMEN / Unknown Venipuncture / Unknown 07/04/2024 5:23 PM CDT 07/04/2024 5:31 PM CDT Vasiliy HookLog[employer]ash LAB - BLOOD ORDERABLES Final Res ult U LABORATORY [facility] [place] Core Lab [address] [facility], [address] * Troponin T, High Sensitivity (07/04/2024 5:23 PM CDT) [facility] Troponin T, High [...] 5:23 PM CDT 07/04/2024 5:31 PM CDT [facility] [employer] LAB - BLOOD ORDERABLES Final Res ult [facility] LABORATORY [facility] [place] Core Lab [address] [facility], Room [address] [phone], [place] * (ABNORMAL) Comprehensive metabolic panel (07/04/2024 5:23 PM CDT) Pathologist [facility] Sodium 139 135 - 145 mmol/L 07/04/2024 [...] BLOOD ORDERABLES Final Res ult UR LABORATORY [facility] Acute Care Lab [address] [facility], [address] [place] [address], [facility] UU LABORATORY [facility] Core Lab [address] [facility], Room [address] [place] [address], [facility] documented in this encounter Visit Diagnoses [...] this section may contain times in both ROLL ON MAN and CDT. Scheduled Medication Order 07/02/2024 07/03/2024 [...] RN) documented in this encounter Care Teams Hoop Punch Operator Helper Relationship Specialty Start Date End Date Veronica Joseph MD [address] [place] [address] PCP - General Family Medicine 06/18/24 Mor Ramsey Medical Student 04/03/24 Case Samuel MD [address] [place] [address], [address] [place] [address] Assigned Pediatric Specialist Provider 05/18/24 Juhi Benson, RN Specialty Odd Piece Checker Hematology & Oncology 05/29/24 documented as of this encounter
--- OUTSIDE RECORDS SUMMARY | 2024-07-28 21:36 | XMS_ITS | Encounter Summary ---
Author Organization [facility] Address [address] [place] [address] Care Team Providers Care Fiscal Manager Name Role Phone RoxyElvirac Unavailable Unavailable Case Samuel MD Unavailable [phone] Juhi Benson RN Unavailable Unavailable Veronica Joseph MD Primary Care Provider [phone] Reason for Visit * Reason Comments Sickle Cell Pain Crisis Encounter Details Date Type Department Care Team (Late st Contact Info) Description 07/01/2024 6:18 PM HARNESS PLACER - 07/01/2024 9:43 PM HARNESS PLACER Emergency [facility] Emergency Department [address] [place] [phone] Andres Sheikh MD [address] [place] [address] [phone] Sickle cell pain crisis (H) Discharge Disposition: [...] on file Legal Sex Female 8:25 AM HARNESS PLACER Gender Identity Not on file Sexual Orientation Not on file documented as of this encounter Last Filed Vital Signs Vital Sign Reading Time Taken Comments Blood Pressure 130/72 07/01/2024 6:13 PM HARNESS PLACER Pulse 112 07/01/2024 6:13 PM HARNESS PLACER Temperature 36.8 C (98.2 F) 07/01/2024 6:13 PM HARNESS PLACER Respiratory Rate 20 07/01/2024 6:13 PM HARNESS PLACER Oxygen Saturation 97% 07/01/2024 6:13 PM HARNESS PLACER Inhaled Oxygen Concentration - - Weight - - Height - - Body Mass Index - - documented in this encounter Discharge Instructions * Discharge Instructions* Andres Sheikh MD - 07/01/2024 9:28 PM HARNESS PLACER Please follow-up with your electrical plumbing supervisor about your ER visit and your hemoglobin of 7.1. Return to the ER for any new or worsening symptoms. Particular lightheadedness presyncope excetra. ESS PLACER ESS PLACER documented in this encounter Medications at Time [...] 05/01/2024 naloxone (NARCAN) 4 MG/0.1ML nasal spray [place] 1 spray (4 mg) into one nostril [...] 07/01/2024 6:23 PM CST ED Provider Note [facility] History Chief Complaint Patient presents with [...] Status --------- ------ CBC with platelets and ...[[id number]] Abnormal Preliminary result Manual Differential[[id number]] Manual Differential[[id number]] In process Please view results for these [...] wanting to discharge. I didtalk to the electrical plumbing supervisor about a hemoglobin of 7 they are [...] Wilkinson, am serving as a trained medical apparatus model maker to document services personally performed by Andres Sheikh MD, based on the provider's statements to me. I, Andres Sheikh MD, was physically present and have reviewed and verified the accuracy of this note documented by Tatiana Wilkinson. Andres Sheikh MD [facility] EMERGENCY DEPARTMENT 07/01/2024 Andres Sheikh MD 07/01/24 0497 ESS PLACER * Lebron Aponte RN - 07/01/2024 6:15 PM CST Pt ambulatory to triage with CC of sickle cell pain, generalized. Hx acute chest, states this pain does not feel like acute chest. Onset 2 days ago, discharge 3 days ago (was admitted for blood clots). Tearful in triage, took all home meds without relief. Triage Assessment (Adult) Row Name 07/01/24 7641 Triage Assessment Airway WDL WDL Respiratory WDL Respiratory WDL WDL Skin Circulation/Temperature WDL Skin Circulation/Temperature WDL WDL Cardiac WDL Cardiac WDL WDL Peripheral/Neurovascular WDL Peripheral Neurovascular WDL WDL Cognitive/Neuro/Behavioral WDL Cognitive/Neuro/Behavioral WDL WDL Ledger Coma Scale Best Eye Response 4-->(E4) spontaneous Best Motor Response 6-->(M6) obeys commands Best Verbal Response 5-->(V5) oriented Ledger Coma Scale Score 15 ESS PLACER documented in this encounter Plan of Treatment Upcoming Encounters Date Type Department Care Team (Late st Contact Info) Description 08/07/2024 7:15 AM CDT Lab [facility] [address] [place] [address] Case Samuel MD [address] [place] [address], [address] [place] [address] 08/08/2024 8:[address] [facility] [address] [phone] Case Samuel MD [address] [place] [address], [address] [place] [address] 10/30/2024 11:30 AM CDT Lab [facility] [address] [phone] Case Samuel MD [address] [place] [address], [address] [place] [address] 10/30/2024 12:00 PM CDT Oncology Visit [facility] [address] [phone] Case Samuel MD [address] [place], [place] [address], [address]OM [address] [address] documented as of this encounter Goals Goal [...] MANUAL DIFFERENTIAL STAT 07/01/2024 8 :00 PM HARNESS PLACER CBC WITH PLATELETS AND DIFFERENTIAL STAT 07/01/2024 8:00 PM HARNESS PLACER CBC WITH PLATELETS & DIFFERENTIAL STAT 07/01/2024 8:00 PM HARNESS PLACER RETICULOCYTE COUNT STAT 07/01/2024 8: 00 PM HARNESS PLACER COMPREHENSIVE METABOLIC PANEL STAT 07/01/2024 8:00 PM HARNESS PLACER documented in this encounter Results * (ABNORMAL) Manual Differential (07/01/2024 8:00 PM HARNESS PLACER) % Neutrophils 63 % JARET 07/01/2024 9:50 PM HARNESS PLACER [facility] % Lymphocytes 25 % JARET 07/01/2024 9:50 PM HARNESS PLACER [facility] % Monocytes 8 % JARET 07/01/2024 9:50 PM HARNESS PLACER [facility] % Eosinophils 0 % JARET 07/01/2024 9:50 PM HARNESS PLACER [facility] % Basophils 4 % JARET 07/01/2024 9:50 PM HARNESS PLACER [facility] % Myelocytes 0 % JARET 07/01/2024 9:50 PM HARNESS PLACER [facility] Absolute Neutrophils 4.9 1.6 - 8.3 10e3/uL JARET 07/01/2024 9:50 PM HARNESS PLACER [facility] Absolute Lymphocytes 1.9 0.8 - 5.3 10e3/uL JARET 07/01/2024 9:50 PM HARNESS PLACER [facility] Absolute Monocytes 0.6 0.0 - 1.3 10e3/uL JARET 07/01/2024 9:50 PM HARNESS PLACER [facility] Absolute Eosinophils 0.0 0.0 - 0.7 10e3/uL JARET 07/01/2024 9:50 PM HARNESS PLACER [facility] Absolute Basophils 0.3(H) 0.0 - 0.2 10e3/uL JARET 07/01/2024 9:50 PM HARNESS PLACER [facility] Absolute Myelocytes 0.0 <=0.0 10e3/uL JARET 07/01/2024 9:50 PM HARNESS PLACER [facility] NRBCs per 100 WBC 17 % JARET 07/01/2024 9:50 PM HARNESS PLACER [facility] Absolute NRBCs 1.3 10e3/uL JARET 07/01/2024 9:50 PM HARNESS PLACER [facility] RBC Morphology Confirmed RBC Indices JARET 07/01/2024 9:50 PM HARNESS PLACER [facility] Platelet Assessment Automated Count Confirmed. Platelet morphology is normal. Automated Count Confirmed. Platelet morphology is normal. JARET 07/01/2024 9:50 PM HARNESS PLACER [facility] Polychromasia Slight(A) None Seen JARET 07/01/2024 9:50 PM HARNESS PLACER [facility] Sickle Cells Slight(A) None Seen JARET 07/01/2024 9:50 PM HARNESS PLACER [facility] Target Cells Slight(A) None Seen JARET 07/01/2024 9:50 PM HARNESS PLACER [facility] Blood BLOOD SPECIMEN / Unknown Venipuncture / Unknown 07/01/2024 8:00 PM HARNESS PLACER 07/01/2024 8:07 PM HARNESS PLACER Narrative [facility] - 07/01/2024 9:50 PM HARNESS PLACER Differential done on Albumin treated blood due to Smudge Cells. us Andres Sheikh MD LAB - BLOOD ORDERABLES Liss plaza Result [facility] [address] [facility], Room 3[address] [place], [place] [phone] * (ABNORMAL) CBC with platelets and differential (07/01/2024 8:00 PM HARNESS PLACER) WBC Count 7.7 4.0 - 11.0 10e3/uL 07/01/2024 9:50 PM HARNESS PLACER [facility] RBC Count 2.18(L) 3.80 - 5.20 10e6/uL 07/01/2024 9:50 PM HARNESS PLACER [facility] Hemoglobin 7.1(L) 11.7 - 15.7 g/dL 07/01/2024 9:50 PM HARNESS PLACER [facility] Hematocrit 20.7(L) 35.0 - 47.0 % 07/01/2024 9:50 PM HARNESS PLACER [facility] MCV 95 78 - 100 fL 07/01/2024 9:50 PM HARNESS PLACER [facility] MCH 32.6 26.5 - 33.0 pg 07/01/2024 9:50 PM HARNESS PLACER [facility] MCHC 34.3 31.5 - 36.5 g/dL 07/01/2024 9:50 PM HARNESS PLACER [facility] RDW 18.6(H) 10.0 - 15.0 % 07/01/2024 9:50 PM HARNESS PLACER [facility] Platelet Count 383 150 - 450 10e3/uL 07/01/2024 9:50 PM HARNESS PLACER [facility] Blood BLOOD SPECIMEN / Unknown Venipuncture / Unknown 07/01/2024 8:00 PM HARNESS PLACER 07/01/2024 8:07 PM HARNESS PLACER Andres Sheikh MD LAB - BLOOD ORDERABLES Liss l Result Performing Organization Address City/[facility]/ZIP Co de Phone Number [facility] [address] [facility], Room [address] * (ABNORMAL) Reticulocyte count (07/01/2024 8:00 PM HARNESS PLACER) % Reticulocyte 7.3(H) 0.5 - 2.0 % 07/01/2024 8:13 PM HARNESS PLACER [facility] Absolute Reticulocyte 0.159(H) 0.025 - 0.095 10e6/uL 07/01/2024 8:13 PM HARNESS PLACER [facility] Blood BLOOD SPECIMEN / Unknown Venipuncture / Unknown 07/01/2024 8:00 PM HARNESS PLACER 07/01/2024 8:07 PM HARNESS PLACER Andres Sheikh MD LAB - BLOOD ORDERABLES Liss l Result [facility] [address] [facility], Room [address] [id number] * (ABNORMAL) Comprehensive metabolic panel (07/01/2024 8:00 PM HARNESS PLACER) Sodium 136 135 - 145 mmol/L 07/01/2024 8:37 PM HARNESS PLACER [facility] Potassium 4.9 3.4 - 5.3 mmol/L 07/01/2024 8:37 PM HARNESS PLACER [facility] Carbon Dioxide (CO2) 20(L) 22 - 29 mmol/L 07/01/2024 8:37 PM HARNESS PLACER [facility] Anion Gap 10 7 - 15 mmol/L 07/01/2024 8:37 PM HARNESS PLACER [facility] Urea Nitrogen 13.4 6.0 - 20.0 mg/dL 07/01/2024 8:37 PM HARNESS PLACER [facility] Creatinine 0.65 0.51 - 0.95 mg/dL 07/01/2024 8:37 PM HARNESS PLACER [facility] GFR Estimate >90 >60 mL/min/1.7 3m2 07/01/2024 8:37 PM HARNESS PLACER [facility] Comment:eGFR calculated us2020 CKD-EPI equation. Calcium 8.8 8.8 - 10.4 mg/dL 07/01/2024 8:37 PM HARNESS PLACER [facility] Chloride 106 98 - 107 mmol/L 07/01/2024 8:37 PM HARNESS PLACER [facility] Glucose 102(H) 70 - 99 mg/dL 07/01/2024 8:37 PM HARNESS PLACER [facility] Alkaline Phosphatase 104 40 - 150 U/L 07/01/2024 8:37 PM HARNESS PLACER [facility] AST 57(H) 0 - 45 U/L 07/01/2024 8:37 PM HARNESS PLACER [facility] ALT 53(H) 0 - 50 U/L 07/01/2024 8:37 PM HARNESS PLACER [facility] Protein Total 7.3 6.4 - 8.3 g/dL 07/01/2024 8:37 PM HARNESS PLACER [facility] Albumin 4.1 3.5 - 5.2 g/dL 07/01/2024 8:37 PM HARNESS PLACER [facility] Bilirubin Total 1.4(H) <=1.2 mg/dL 07/01/2024 8:37 PM HARNESS PLACER [facility] Blood BLOOD SPECIMEN / Unknown Venipuncture / Unknown 07/01/2024 8:00 PM HARNESS PLACER 07/01/2024 8:07 PM HARNESS PLACER us Andres Sheikh MD LAB - BLOOD ORDERABLES Liss bola Result [facility] [address] [facility], Room [address] [place] [phone] documented in [...] For 1 dose $Given 07/01/2024 6:55 PM HARNESS PLACER 50 mg heparin lock flush 100 unit/mL injection 100 Units 100 Units, Intravenous, ONCE, On 07/01/24 at 2130, For 1 dose $Given 07/01/2024 9:40 PM HARNESS PLACER 100 Units hydromorphone (DILAUDID) injection 2 mg 2 mg, Intravenous, ONCE, On 07/01/24 at 1835, For 1 dose $Given 07/01/2024 6:54 PM HARNESS PLACER 2 mg hydromorphone (DILAUDID) injection 2 mg 2 mg, Intravenous, EVERY 1 HOUR PRN, severe pain, Starting on 07/01/24 at 2001, For 2 doses $Given 07/01/2024 9:22 PM HARNESS PLACER 2 mg $Given 07/01/2024 8:05 PM HARNESS PLACER 2 mg lactated ringers BOLUS 1,000 mL Intravenous, 1,000 mL, ONCE, at 1,000 mL/hr, Administer over 1 Hours, On 07/01/24 at 1835, For 1 dose $New Bag 07/01/2024 6:55 PM HARNESS PLACER 1,000 mLs 1000 mL/hr ondansetron (ZOFRAN) injection 8 mg 8 mg, Intravenous, ONCE, Administer over 2-5 Minutes, On 07/01/24 at 1835, For 1 dose $Given 07/01/2024 6:54 PM HARNESS PLACER 8 mg documented in this encounter Active and Recently Administered Medications Times are shown in HARNESS PLACER. Scheduled Medication Order 06/29/2024 06/30/2024 07/01/2024 diphenhydrAMINE [...] RN) documented in this encounter Care Teams Fiscal Manager Relationship Specialty Start Date End Date Veronica Joseph MD [address] [place] [address] PCP - General Family Medicine 06/18/24 Mor Ramsey Medical Student 04/03/24 Case Samuel MD [address] [place] [address], [address] [place] [address] Assigned Pediatric Specialist Provider 05/18/24 Juhi Benson, RN Specialty Flame Hardening Machine Operator Hematology & Oncology 05/29/24 documented as of this encounter
--- OUTSIDE RECORDS SUMMARY | 2024-07-28 21:36 | XMS_ITS | Encounter Summary ---
Author Organization [facility] Address [address] [place] [address] Care Team Providers Care Associate School Psychologist Name Role Phone RoxyElvirac Unavailable Unavailable Case Samuel MD Unavailable [phone] Juhi Benson RN Unavailable Unavailable Veronica Joseph MD Primary Care Provider [phone] Reason for Visit * Reason Comments Sickle Cell Pain Crisis Encounter Details Date Type Department Care Team (Late st Contact Info) Description 07/07/2024 9:13 PM CDT - 07/08/2024 12:23 AM CDT Emergency [facility] Emergency Room [address] [place] [phone] Octavio Garcia MD [facility] [address] [address] Sandy Ortiz MD [address] [place] [phone] Sickle cell pain crisis (H) Discharge Disposition: [...] file Legal Sex Female 8:25 AM COIL FINISHER Gender Identity Not on file Sexual Orientation [...] 07/07/2024 11:20 PM CDT Follow-up with your welder. Continue to take your oral pain medication [...] 05/01/2024 naloxone (NARCAN) 4 MG/0.1ML nasal spray [place] 1 spray (4 mg) into one nostril [...] No data to display Sandy Ozzy-Lidahl, MD [facility] EMERGENCY ROOM [address] [facility] [address] Sandy Ortiz MD 07/07/24 2332 * Octavio Garcia MD - 07/07/2024 9:21 PM CDT EMERGENCY DEPARTMENT ENCOUNTER NAME: Gianna Hernández AGE: [age] year old female DATE OF : 1995 EVALUATION DATE & TIME: 07/07/2024 9:13 PM PCP: Veronica Joseph ED PROVIDER: Octaivo Garcia MD FINAL IMPRESSION: 1. Sickle cell [...] full body pain after riding the roller [employer] I have lower suspicion for acute chest [...] bedside and she agrees with this assessment. [id number] reassessed patient at bedside. Sitting comfortably in [...] with a friend and went to the [employer] and went on the [employer]. She believes she overdid it. Subsequently developed [...] Psychiatric: Affect normal, cooperative. Octavio Garcia MD [facility] EMERGENCY ROOM [facility] [facility] [address] BILLING: Data Category 1 Non-ED record [...] direction. Octavio Garcia MD 07/08/24 0032 * aDve Keller RN - 07/07/2024 7:16 PM CDT Pt presents to the ED with c/o worsening pain today. Pt hx of sickle cell. Pain all over. Denies CP or SOB. documented in this encounter Plan of Treatment Upcoming Encounters Date Type Department Care Team (Late st Contact Info) Description 08/07/2024 7:15 AM CDT [facility] [address] [phone] Case Samuel MD [address] [place], [place] [address], [address] [place] [address] 08/08/2024 8:00 AM CDT Appointment [facility] [address] [phone] Case Samuel MD [address] [place] [address], [address] [place] [address] 10/30/2024 11:30 AM CDT Lab [facility] [address] [phone] Case Samuel MD [address] [place] [address], RO[address] [address] 10/30/2024 12:00 PM CDT Oncology Visit [facility] [address] [phone] Case Samuel MD [address] [place], [place] [address], ROOM [address] [address] documented as of this encounter Goals Goal [...] lumen documented in this encounter Care Teams Associate School Psychologist Relationship Specialty Start Date End Date Veronica Joseph MD [address] [place] [address] PCP - General Family Medicine 06/18/24 Mor Ramsey Medical Student 04/03/24 Case Samuel MD [address] [place] [address], [address] [place] [address] Assigned Pediatric Specialist Provider 05/18/24 Juhi Benson, SOFIA Specialty Field Assembly Supervisor Hematology & Oncology 05/29/24 documented as of this encounter
--- OUTSIDE RECORDS SUMMARY | 2024-07-28 21:36 | XMS_ITS | Encounter Summary ---
Author Organization [facility] Address [address] [place] [address]. [place] [address] Care Team Providers Care Premium Auditor Name Role Phone RoxyElvirac Unavailable Unavailable Case Samuel MD Unavailable [phone] Juhi Benson RN Unavailable Unavailable Veronica Joseph MD Primary Care Provider [phone] Reason for Visit * Reason Comments Infusion IVF/Pain medication/ antiemetics Encounter Details Date Type Department Care Team ([facility] st Contact Info) Description 07/06/2024 9:00 AM CDT Infusion Therapy Visit [facility] [address] [place] [address] Case Samuel MD [address] [place] [address], [address] [place], [place] [address] Sickle cell pain crisis (H) (Primary Dx) [...] on file 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 Gender Identity Not on file Sexual Orientation Not on file documented as of this encounter Patient Instructions * Patient Instructions* Sheryl Larson RN - 07/06/2024 9:00 AM CDT Contact Numbers [facility]: [phone] After Hours: [phone] Triage: [phone] Please call the [facility] Triage line if you experience a temperature greater than or equal to 100.5,shaking chills, have uncontrolled nausea, vomiting and/or diarrhea, dizziness, shortness of breath,chest pain, bleeding, unexplained bruising, or if you have any other new/concerning symptoms, questions or concerns. If it is after hours, weekends, or holidays, please call the main hospital clean in places operator at [phone] ask to speak to the Oncology doctor director of labor relations. If you are having any concerning symptoms or wish to speak to a provider before your next infusion visit, please call your hemodialysis patient care specialist or triage to notify them so we can adequately serve you. If you need a refill on a narcotic prescription or other medication, please call triage before yourinfusion appointment. June 2024Wednesday 1 Admission 9:28 AM Richar Mahajan MD [facility] Department (Discharge: 06/24/2024) 2 XR GENERAL XRAY 9:45 PM (20 min.) [email or web address] [facility] Imaging Admission 9:50 PM Polly Naylor MD [facility] (Discharge: 06/26/2024) 3 Admission 1:51 PM Esdras Markham MD [facility] (Discharge: 06/29/2024) XR GENERAL XRAY 2:40 PM (20 min.) UUXR1 [facility] Imaging CT CHEST PULMONARY EMBOLISM W 3:25 PM (20 min.) UUCT4 [facility] 4 US LWR EXT VENOUS DUPLEX BILAT 10:40 AM (40 min.) UUUS1 [facility] ECHO COMPLETE 1:15 PM (60 min.) [id number] [facility] 5 6 7 8 Admission 6:18 PM Andres Tejada MD [facility] (Discharge: 07/01/2024) 9 Admission 5:47 PM [facility] (Discharge: 07/02/2024) 10 11 LAB CENTRAL 9:00 AM (15 min.) [facility] Admission 4:28 PM Richar Mahajan MD [facility] (Discharge: 07/04/2024) 12 Admission 6:57 PM [facility] (Discharge: 07/05/2024) XR GENERAL XRAY 7:05 PM (20 min.) UUXR1 [facility] 13 RED BLOOD CELL EXCHANGE 7:45 AM (200 min.) APHERESIS RN1 [facility] ONC INFUSION 3 HR (180 MIN) 9:00 AM (180 min.) ONC INFUSION NURSE [facility] 14 15 16 17 RETURN CCSL 11:15 AM (30 min.) Case Samuel MD [facility] 18 19 20 21 22 [...] Component Type Red Blood Cells Product Code K9808Z05 Unit Status Issued Unit Number [id number] CROSSMATCH COMPATIBLE CODING SYSTEM [id number] ISSUE DATE AND TIME [id number] UNIT ABO/RH A+ UNIT TYPE ISBT 6200 Prepare red blood cells (unit) Collection Time: 07/05/24 11:35 PM Result Value Ref Range Blood Component Type Red Blood Cells Product Code I0681Y49 Unit Status Issued Unit Number [id number] CROSSMATCH COMPATIBLE CODING SYSTEM [id number] ISSUE DATE AND TIME [id number] UNIT ABO/RH O+ UNIT TYPE ISBT 5100 Prepare red blood cells (unit) Collection Time: 07/05/24 11:35 PM Result Value Ref Range Blood Component Type Red Blood Cells Product Code B6628A45 Unit Status Issued Unit Number [id number] CROSSMATCH COMPATIBLE CODING SYSTEM [id number] ISSUE DATE AND TIME [id number] UNIT ABO/RH O+ UNIT TYPE ISBT 5100 Prepare red blood cells (unit) Collection Time: 07/05/24 11:35 PM Result Value Ref Range Blood Component Type Red Blood Cells Product Code X7040Q39 Unit Status Issued Unit Number [id number] CROSSMATCH COMPATIBLE CODING SYSTEM [id number] ISSUE DATE AND TIME [id number] UNIT ABO/RH A+ UNIT TYPE ISBT 6200 Prepare red blood cells (unit) Collection Time: 07/05/24 11:35 PM Result Value Ref Range Blood Component Type Red Blood Cells Product Code R1604B52 Unit Status Issued Unit Number [id number] CROSSMATCH COMPATIBLE CODING SYSTEM [id number] ISSUE DATE AND TIME [id number] UNIT ABO/RH A+ UNIT TYPE ISBT 6200 [...] medication/antiemetics. 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 Note: [...] all questions answered. AVS to patient via DotBluHART. Patient will return 07/10 for next appointment. Patient discharged in stable condition accompanied by: self. Departure Mode: Ambulatory. CHILO DE LA FUENTE RN documented in this encounter Plan of Treatment Upcoming Encounters Date Type Department Care Team (Late st Contact Info) Description 08/07/2024 7:15 AM CDT Lab [facility] [address] [phone] Case Samuel MD [address] [place], [place] [address], ROOM [address] [address] 08/08/2024 8:00 AM CDT Appointment [facility] [address] [phone] Case Samuel MD [address] [place], [place] [address], ROOM [address] [address] 10/30/2024 11:30 AM CDT Lab [address] [phone] Case Samuel MD [address] [place] [address], RO[address] [address] 10/30/2024 12:00 PM CDT Oncology Visit [facility] [address] [phone] Case Samuel MD [address] [facility] 484, [address] [place] [address] documented as of this encounter Goals Goal [...] platelets and differential (07/06/2024 9:25 AM CDT) [facility] WBC Count 11.0 4.0 - 11.0 10e3/uL 07/06/2024 9:36 AM CDT [facility] RBC Count 2.37(L) 3.80 - 5.20 10e6/uL 07/06/2024 9:36 AM CDT [facility] Hemoglobin 8.1(L) 11.7 - 15.7 g/dL 07/06/2024 9:36 AM CDT [facility] Hematocrit 23.7(L) 35.0 - 47.0 % 07/06/2024 9:36 AM CDT [facility] MCV 100 78 - 100 fL 07/06/2024 9:36 AM CDT [facility] MCH 34.2(H) 26.5 - 33.0 pg 07/06/2024 9:36 AM CDT [facility] MCHC 34.2 31.5 - 36.5 g/dL 07/06/2024 9:36 AM CDT [facility] RDW 19.6(H) 10.0 - 15.0 % 07/06/2024 9:36 AM CDT [facility] Platelet Count 450 150 - 450 10e3/uL 07/06/2024 9:36 AM CDT [facility] % Neutrophils 49 % 07/06/2024 9:36 AM CDT [facility] % Lymphocytes 35 % 07/06/2024 9:36 AM CDT [facility] % Monocytes 11 % 07/06/2024 9:36 AM CDT [facility] % Eosinophils 4 % 07/06/2024 9:36 AM CDT [facility] % Basophils 1 % 07/06/2024 9:36 AM CDT [facility] % Immature Granulocytes 1 % 07/06/2024 9:36 AM CDT [facility] NRBCs per 100 WBC 3(H) <1 /100 025 9:36 AM CDT [facility] Absolute Neutrophils 5.4 1.6 - 8.3 10e3/uL 07/06/2024 9:36 AM CDT [facility] Absolute Lymphocytes 3.8 0.8 - 5.3 10e3/uL 07/06/2024 9:36 AM CDT [facility] Absolute Monocytes 1.2 0.0 - 1.3 10e3/uL 07/06/2024 9:36 AM CDT [facility] Absolute Eosinophils 0.5 0.0 - 0.7 10e3/uL 07/06/2024 9:36 AM CDT [facility] Absolute Basophils 0.1 0.0 - 0.2 10e3/uL 07/06/2024 9:36 AM CDT [facility] Absolute Immature Granulocytes 0.1 <=0.4 10e3/uL 07/06/2024 9:36 AM CDT [facility] Absolute NRBCs 0.3 10e3/uL 07/06/2024 9:36 AM CDT [facility] Blood BLOOD SPECIMEN / Unknown IVAD (Port) / Unknown 07/06/2024 9:25 AM CDT 07/06/2024 9:34 AM CDT us Case Samuel MD LAB - BLOOD ORDERABLES Fi nal Result [facility] [address] [facility] 1st [place] [address] * (ABNORMAL) Basic metabolic panel (07/06/2024 9:25 AM CDT) Sodium 137 135 - 145 mmol/L 07/06/2024 9:57 AM CDT [facility] Potassium 4.4 3.4 - 5.3 mmol/L 07/06/2024 9:57 AM CDT [facility] Chloride 106 98 - 107 mmol/L 07/06/2024 9:57 AM CDT [facility] Carbon Dioxide (CO2) 20(L) 22 - 29 mmol/L 07/06/2024 9:57 AM CDT [facility] Anion Gap 11 7 - 15 mmol/L 07/06/2024 9:57 AM CDT [facility] Urea Nitrogen 6.9 6.0 - 20.0 mg/dL 07/06/2024 9:57 AM CDT [facility] Creatinine 0.67 0.51 - 0.95 mg/dL 07/06/2024 9:57 AM CDT [facility] GFR Estimate >90 >60 mL/min/1.7 3m2 07/06/2024 9:57 AM CDT [facility] Comment:eGFR calculated usin 2020 CKD-EPI equation. Calcium 8.5(L) 8.8 - 10.4 mg/dL 07/06/2024 9:57 AM CDT [facility] Glucose 114(H) 70 - 99 mg/dL 07/06/2024 9:57 AM CDT [facility] Blood BLOOD SPECIMEN / Unknown IVAD (Port) / Unknown 07/06/2024 9:25 AM CDT 07/06/2024 9:34 AM CDT us Case Samuel MD LAB - BLOOD ORDERABLES Fi nal Result [facility] [address] [facility] 1st [place] [address] documented in this encounter Visit Diagnoses Diagnosis [...] mLs documented in this encounter Care Teams Premium Auditor Relationship Specialty Start Date End Date Veronica Joseph MD [address] [place] [address] PCP - General Family Medicine 06/18/24 Mor Ramsey Medical Student 04/03/24 Case Samuel MD [address] [place] [address], [address] [place] [address] Assigned Pediatric Specialist Provider 05/18/24 Juhi Benson, RN Specialty [facility] Hematology & Oncology 05/29/24 documented as of this encounter
--- OUTSIDE RECORDS SUMMARY | 2024-07-28 21:36 | XMS_ITS | Encounter Summary ---
Author Organization [place] Address [address] [place] [address]. 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 Gender Identity Not on file Sexual Orientation Not on file documented as of this encounter Plan of Treatment Upcoming Encounters Date Type Department Care Team (Late st Contact Info) Description 08/07/2024 7:15 AM CDT Lab [facility] [address] [phone] Case Samuel MD [address] [place] [address], [address] [address] 08/08/2024 8:00 AM CDT Appointment [facility] [address] [phone] Case Samuel MD [address] [place] [address], [address] [address] 10/30/2024 11:30 AM CDT Lab [facility] [address] [phone] Case Samuel MD [address] [place] [address], [address] [address] 10/30/2024 12:00 PM CDT Oncology Visit [facility] [address] [phone] Case Samuel MD [address] [facility] 484, [address] [place] [address] documented as of this encounter Goals Goal [...] on filedocumented in this encounter Care Teams Procedure Tech Relationship Specialty Start Date End Date Veronica Joseph MD [address] [place] [address] PCP - General Family Medicine 06/18/24 Mor Ramsey Medical Student 04/03/24 Case Samuel MD [address] [facility] 484, [address] [place] [address] Assigned Pediatric Specialist Provider 05/18/24 Juhi Benson, RN Specialty Cutter [facility] Hematology & On[facility] 05/29/24 documented as of this encounter
--- OUTSIDE RECORDS SUMMARY | 2024-07-28 21:36 | XMS_ITS | Encounter Summary ---
Author Organization [facility] Address [address] [place] [address]. 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 [address] [phone] Case Samuel MD [address] [place] [address], [address] [address] 08/08/2024 8:00 AM CDT Appointment [facility] [address] [phone] Case Samuel MD [address] [place] [address], [address] [address] 10/30/2024 11:[address] [facility] [address] [phone] Case Samuel MD [address] [place] [address], [address] [address] 10/30/2024 12:00 PM CDT Oncology Visit [facility] [address] [phone] Case Samuel MD [address] [facility] 484, [address] [place] [address] documented as of this encounter Goals Goal [...] on filedocumented in this encounter Care Teams Geriatric Nurse Practitioner Relationship Specialty Start Date End Date Veronica Joseph MD [address] [place] [address] PCP - General Family Medicine 06/18/24 Mor Ramsey Medical Student 04/03/24 Case Samuel MD [address] [facility] 484, [address] [place] [address] Assigned Pediatric Specialist Provider 05/18/24 Juhi Benson, RN Specialty Operations Manager/Coordinator Hematology & Oncology 05/29/24 documented as of this encounter
--- OUTSIDE RECORDS SUMMARY | 2024-07-28 21:36 | XMS_ITS | Encounter Summary ---
Author Organization [facility] Address [address] [place] [address]. 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 Call member services at your health plan with any benefit or coverage questions. ER OPERATOR Reason for Visit * Reason Comments Sickle Cell Pain Crisis * Auth/Cert Specialty Diagnoses / Procedures Referred By Contkameron t Referred To Contact EMERGENCY MEDICINE Diagnoses Acute chest pain Sickle cell pain crisis (H) [facility] Emergency Department [address] [place] [address] Phone: tel: Referral ID Status Reason Start Date Expiration Date Visits Re quested Visits Authorized [id number] 1 1 Encounter Details Date Type Department Care Team (Latest Contact Info) Description 06/12/2024 6:38 PM GRADER OPERATOR - 06/15/2024 10:48 AM GRADER OPERATOR [facility] Emergency Department [address] [place] [phone] Abdelrahman Goddard MD [address] [place] [address] Andres Jain DO Duffy, Briar, MD [address] [facility] [address] [place] [address] 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) [...] on file Legal Sex Female 8:25 AM GRADER OPERATOR Gender Identity Not on file Sexual Orientation Not on file documented as of this encounter Last Filed Vital Signs Vital Sign Reading Time Taken Comments Blood Pressure 99/64 06/15/2024 6:10 AM GRADER OPERATOR Pulse 75 06/15/2024 6:10 AM GRADER OPERATOR Temperature 36.7 C (98 F) 06/15/2024 6:10 AM GRADER OPERATOR Respiratory Rate 16 06/15/2024 6:10 AM GRADER OPERATOR Oxygen Saturation 100% 06/15/2024 6:10 AM GRADER OPERATOR Inhaled Oxygen Concentration - - Weight - - Height - - Body Mass Index - - documented in this encounter Discharge Summaries * Rl Elias MD - 06/15/2024 8:58 AM CST [facility] Discharge Summary - Medicine & [...] 5 day course of antibiotics - Continue [employer] ENTERTAINER hydroxyurea - Continue AM[employer]MENT [employer]ARK ENTERTAINER folic acid - Continue albuterol inhaler QID given in the ED - Patient should follow up with her PCP upon discharge in 2-3 weeks - Patient should restart pain plan as taking at home with PO hydromorphone 2 mg Q6H PRN for pain upon discharge #Anxiety #Nausea - Continue [employer]ARK ENTERTAINER Fluoxetine 10 mg daily Consultations This Hospital Stay HEMATOLOGY ADULT IP CONSULT CARE MANAGEMENT / SOCIAL WORK IP CONSULT Code Status Full Code The patient was discussed with Dr. Hall. MD Oliver LANGLEY [address] [place] [address] EMERGENCY DEPARTMENT [address] [facility] [phone] Physical Exam Vital Signs: Temp: 98 ??F [...] your primary care provider & your primary Graduation Coach as indicated. Activity Your activity upon discharge: [...] CHEST 2 VIEWS LOCATION: [facility] DATE: 06/12/2024 INDICATION: CP COMPARISON: 06/03/2024, [...] E-Prescribe naloxone (NARCAN) 4 MG/0.1ML nasal spray Charlotte 1 spray (4 mg) into one nostril [...] German Hall MD at 06/22/2024 12:17 PM GRADER OPERATOR ER OPERATOR ER OPERATOR Associated attestation - German Hall MD - 06/22/2024 12:17 PM GRADER OPERATOR Attestation: This patient has been seen [...] 05/01/2024 naloxone (NARCAN) 4 MG/0.1ML nasal spray Charlotte 1 spray (4 mg) into one nostril [...] Overall, I spent 35 minutes today (DOS) [id number] and/or coordinating care as documented above and specifically listed as below: --Reviewing documentation related to patient's history and this current admission available in [employer] --Review and clinical interpretation of pertinent laboratory test results and radiology reports from this admission --Discussion of the patient's case with the members of the Hematology Consult Team --Discussion with the patient --Documentation in the electronic health record ER OPERATOR * Rl Elias MD - 06/14/2024 7:08 [...] Service (when I saw the patient): 06/14/24 [facility] Date of Admission: 06/12/2024 [...] 7-9, most recent Hbg 8.8 on 06/07 [employer]ARK ENTERTAINER. Hb.5 -> 6.4 -> 6.8 -> 6.9 Plan: - Blood cultures pending x2 - NGTD - CTM hemoglobin daily - Ordered Voltaren gel, lidocaine patches, and icy hot PRN - Continue Ceftriaxone and Azithromycin for ppx (06/12 -*), consider transition to PO this afternoon - Continue [employer]TER[employer]ER hydroxyurea - Continue [employer]MENT [employer]ARK ENTERTAINER folic acid - Continue IS - type and screen ordered, consented for blood on 06/13 - no indication for transfusion unless hemodynamically unstable - Hematology consulted, appreciate recs - Hydromorphone 2 mg IV Q2H scheduled--titrate within 24-48 hours - Maintenance LR - Transfusion not recommended at this time - albuterol inhaler q6h, zofran, benadryl, docusate, senna PRN #Anxiety #Nausea - Continue [employer] ENTERTAINER Fluoxetine - Benadryl PRN per Pain Plan [...] Student Medicine Service, [facility] TEAM [address] [place] [address] Securely message with [employer] (more info) Text page via [facility] [employer] Paging/Directory See signed in provider for up [...] German Hall MD at 06/19/2024 8:50 AM GRADER OPERATOR ER OPERATOR ER OPERATOR ER OPERATOR Associated attestation - German Hall MD - 06/19/2024 8:50 AM GRADER OPERATOR Attestation: This patient has been seen [...] Service (when I saw the patient): 06/13/24 [facility] Progress Note - Medicine Service, [...] 7-9, most recent Hbg 8.8 on 06/07 [employer]ARK ENTERTAINER. Hb.5 -> 6.4 Plan: -Blood cultures pending x2 -CTM hemoglobin daily -Continue Ceftriaxone and Azithromycin for ppx (06/12 -*) -Continue [employer]TERTAINER hydroxyurea -Continue [employer] ENTERTAINER folic acid - type and screen ordered, consented for blood - no indication for transfusion unless hemodynamic instability - Hematology consulted, appreciate recs -Hydromorphone 2 mg IV Q3H scheduled--titrate within 24-48 hours -Maintenance LR -Transfusion not recommended at this time - zofran, benadryl, docusate, senna PRN #Anxiety #Nausea -Continue [employer] ENTERTAINER Fluoxetine -Benadryl PRN per Pain Plan -Zofran [...] Student Medicine Service, [facility] TEAM [address] [place] [address] Securely message with [employer] (more info) Text page via [employer] Paging/Directory See signed in provider for up [...] CHEST 2 VIEWS LOCATION: [facility] DATE: 06/12/2024 INDICATION: CP COMPARISON: 06/03/2024, [...] German Hall MD at 06/14/2024 8:25 AM GRADER OPERATOR ER OPERATOR ER OPERATOR Associated attestation - German Hall MD - 06/14/2024 8:25 AM GRADER OPERATOR Attestation: This patient has been seen and evaluated by me, German Hall MD. Discussed with the house staff team or resident(s) and agree with the findings and plan in this note. I have reviewed today's Medications, Vital Signs, and Labs. DOS 06/13 * Mary Flores MD - 06/12/2024 8:20 PM CST call center team leader Hematology fellow note 30F Sickle cell disease [...] Flores MD MS Hematology fellow, PGY5 Pager: [phone] Cosigned by Kirstin Long MD at 06/13/2024 7:25 AM GRADER OPERATOR ER OPERATOR ER OPERATOR ER OPERATOR Associated attestation - Kirstin Long MD - 06/13/2024 7:25 AM GRADER OPERATOR Physician Attestation I discussed patient overnight with fellow mechanical engineering draftsperson. I agree with plan as outlined. I did not see thepatient on this date. Kirstin Long MD/PhD documented in this encounter H&P Notes * Laquita Kelley MD - 06/12/2024 9:37 PM CST [facility] History and Physical - Medicine [...] of avascular necrosis of left hip -Continue AM[employer]ARK ENTERTAINER hydroxyurea -Continue AMUSEMENT PARK ENTERTAINER folic acid -Transfuse for Hb<7 #Stroke reported [...] Jain . Laquita Kelley MD Medicine Service, [facility] Securely message with [employer] (more info) Text page via [facility] Paging/Directory See signed in provider for 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, [facility] Functional asplenia Gallstones Hb-SS disease without crisis [...] 4 MG/0.1ML nasal spray No No Sig: Charlotte 1 spray (4 mg) into one nostril [...] Andres Jain DO at 06/12/2024 10:27 PM GRADER OPERATOR ER OPERATOR ER OPERATOR ER OPERATOR ER OPERATOR Associated attestation - Andres Jain DO - 06/12/2024 10:27 PM GRADER OPERATOR Physician Attestation I saw this patient [...] PTT: N/A D-dimer: N/A Fibrinogen: N/A Andres aJin DO Date of Service (when I saw [...] Communication Assessment Patient's communication style: spoken language (Tajik or Bilingual) Cognitive Cognitive/Neuro/Behavioral: WDL Living Environment: [...] Depression: Not at risk (04/11/2024) Received from [facility] PHQ-2 PHQ-2 TOTAL SCORE: 1 Housing [...] Social Connections: Socially Integrated (03/28/2024) Received from [facility] Social Connections Do you often feel lonely or isolated from those around you?: 0 Health Literacy: Not on file Functional Status: Prior to admission patient needed assistance: Dependent ADLs:: Independent Dependent IADLs:: Independent Mental Health Status: Mental Health Status: No Current Concerns Chemical Dependency Status: Chemical Dependency Status: No Current Concerns Values/Beliefs: Spiritual, Cultural Beliefs, Hoahaoism Practices, Values that affect care: no Discussed [...] Katheryn Carter RN, PHN, BSN Float Nurse [employer] Covering for Unit ED Phone [phone] ER OPERATOR * Kirstin Long MD - 06/13/2024 10:17 AM CSTAssociated Order(s): HEMATOLOGY ADULT IP CONSULT Images from the original note were not included. Hematology Consult Note Date of Service: 06/13/2024 Patient: Gianna Hernández Admission Date: 06/12/2024 Hospital Day # 1 Hematology Diagnosis: Sickle Cell Disease - HbSS Primary Outpatient Graduation Coach: Dr Samuel Current Treatment Plan: Inpatient: Opioid: 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, [facility] Functional asplenia Gallstones Hb-SS [...] 11 naloxone (NARCAN) 4 MG/0.1ML nasal spray Charlotte 1 spray (4 mg) into one nostril [...] Imaging EXAM: XR CHEST 2 VIEWS LOCATION: [facility] DATE: 06/12/2024 INDICATION: CP COMPARISON: 06/03/2024, 05/27/2024 IMPRESSION: A few faint peripheral reticulonodular opacities in the mid and lower lungs again seen.Lungs otherwise clear. No pleural effusion. No pneumothorax. Borderline cardiac enlargement unchanged. Port anterior right chest wall with right IJ central venous catheter tip low SVC. Port anterior left chest wall with left IJ central venous catheter tip low SVC. ER OPERATOR documented in this encounter ED Notes * Juhi Crump RN - 06/12/2024 6:55 PM CST Bed: [facility] Expected date: Expected time: Means of arrival: Comments: SICK ER OPERATOR * Lebron Aponte RN - 06/12/2024 6:34 [...] of pain but is still severe. Contacted supervisor asbestos removal and was instructed to come to [facility] EB. Reports SOB a little bit. It hurts to take a deep breath. Denies dizziness. Triage Assessment (Adult) Row Name 06/12/24 3236 Triage Assessment Airway WDL WDL Respiratory WDL [...] 5-->(V5) oriented Lester Coma Scale Score 15 ER OPERATOR * Abdelrahman Goddard MD - 06/12/2024 6:20 PM CST Images from the original note were not included. [facility] ([facility]) 06/12/24 ED PROVIDER NOTE History No chief [...] from [place] Sickle Cell Disease History Primary Graduation Coach/METAL TRIM ERECTOR/PA: Lizzie Genotype: SS Acute Pain Crisis Treatment: 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, [facility] Functional asplenia Gallstones Hb-SS [...] chest pain Rhythm: normal sinus Rate: 94BPM Odd: Normal Ectopy: none Conduction: normal ST Segments/ [...] Rate 102 BPM Atrial Rate 102 BPM PA Interval 158 ms QRS Duration 78 ms QT 348 ms QTc 453 ms P Odd 39 degrees R AXIS 66 degrees T Odd 33 degrees Interpretation ECG Sinus tachycardia Nonspecific T wave abnormality Abnormal ECG When compared with ECG of 05-Jun-2024 11:40, No significant change was found Confirmed by SEE ED PROVIDER NOTE FOR, ECG INTERPRETATION ([id number]), videotape editor SELMA GARRISON ([id number]) on 06/11/2024 9:05:27 PM Medications - No [...] Jovanny Hernadez, am serving as a trained health care / medical job titles to document services personally performed by Abdelrahman Goddard MD, based on the provider's statements to me. I, Abdelrahman Goddard MD, was physically present and have reviewed and verified the accuracy of this note documented by Jovanny Hernadez. Abdelrahman Goddard MD [facility] EMERGENCY DEPARTMENT 06/12/2024 Abdelrahman Goddard MD 06/12/242023 ER OPERATOR documented in this encounter Miscellaneous Notes * Plan of Care - Clay Avina RN - 06/15/2024 9:55 AM CST Goal Outcome Evaluation: Plan of Care Reviewed With: patient Overall Patient Progress: improving 4x A/O. VSS. RA. Independent. AVS reviewed, questions answered. Port de accessed with saline flush and heparin locked. ER OPERATOR * Plan of Care - Kathy Levy RN - 06/15/2024 6:22 AM CST Goal Outcome Evaluation: Plan of Care Reviewed With: patient Overall Patient Progress: improving Pt is alert anf oriented x4. VSS, on room air with no SOB noted. On pain management for sickle cellcrisis. Tolerating diet well with no n/v. L chest port infusing intermittent IV ABT. Voiding well. Last BM AMUSEMENT PARK ENTERTAINER. Pt is up ad chandler. Will continue with plan of care. ER OPERATOR * Plan of Care - Clay Avina RN - 06/14/2024 5:02 PM CST Goal Outcome Evaluation: Plan of Care Reviewed With: patient Overall Patient Progress: improving 4x A/O. VSS. Independent. Pain controlled with schedule q2hr IV dilaudid. Tolerating regular diet. Voiding spontaneously. Had nausea in AM, relieved with Zofran. Port SL. ER OPERATOR * Pharmacy-Admission Medication History - Lorenza Valdes - 06/14/2024 11:19 AM CST Dietary Services Manager Admission Medication History Admission medication history is complete. The information provided in this note is only as accurateas the sources available at the time of the update. Information Source(s): Patient and CareEverywhere/SureScripts via in-person Pertinent Information: Medication reconciliation completed at bedside with patient. Patient was a good historian of her medication names, doses, frequencies, and last doses. Changes made to [employer] ENTERTAINER medication list: Added: Epi-pen: patient has pen available, but has not used recently. Ibuprofen: OTC product used PRN for pain. Benadryl: OTC product used PRN for itching due to hydromorphone. Deleted: None Changed: None Allergies reviewed with patient and updates made in EHR: yes Medication History Completed By: Lorenza Valdes 06/14/2024 11:19 AM AMUSEMENT PARK ENTERTAINER Med List Medication Sig Last Dose/Taking diphenhydrAMINE [...] Morning naloxone (NARCAN) 4 MG/0.1ML nasal spray Charlotte 1 spray (4 mg) into one nostril alternating nostrilsas needed for opioid reversal (for opiate overdose if not breathing and unconscious. have your family member watch video on how to use/read information sheet). every 2-3 minutes until assistance arrives Taking As Needed Cosigned by Terrell Fernandez RPH at 06/15/2024 10:33 AM GRADER OPERATOR ER OPERATOR ER OPERATOR Associated attestation - Terrell Fernandez RPH - 06/15/2024 10:33 AM GRADER OPERATOR I have read and agree with the student's note. Terrell Fernandez, PGY-1 Community Sports Coordinator * Provider Notification - Kiki Caal RN - 06/13/2024 7:27 PM GRADER OPERATOR Notified providers Nivia Carvajal, Laquita Kelley and Rl Elias of critical Hgb 6.8 at 1920. No new orders ER OPERATOR * Plan of Care - Katheryn Carter RN - 06/13/2024 12:44 PM CST Goal Outcome Evaluation: Plan of Care Reviewed With: patient Overall Patient Progress: improvingOverall Patient Progress: improving Outcome Evaluation: Plan: TBD Katheryn Carter RN, PHN, BSN Float Nurse [employer] Covering for Unit ED Phone [phone] ER OPERATOR * Plan of Care - Shauna Cuadra [...] POC. Notify primary team with changes. ER OPERATOR documented in this encounter Plan of Treatment Upcoming Encounters Date Type Department Care Team (Late st Contact Info) Description 08/07/2024 7:15 AM CDT Lab [facility] [address] [phone] Case Samuel MD [address] [place] [address], [address] [address] 08/08/2024 8:00 AM CDT Appointment [facility] Advanced Treatment [address] [phone] Case Samuel MD [address] [place] [address], [address] [address] 10/30/2024 11:30 AM CDT Lab [facility] [address] [phone] Case Samuel MD [address] [place] [address], [address] [address] 10/30/2024 12:00 PM CDT Oncology Visit [facility] [address] [phone] Case Samuel MD [address] [facility] [address], [address] [place] [address] Scheduled Referrals Name Type Priority Associated Diagnoses [...] PLATELETS AND DIFFERENTIAL STAT 06/15/2024 6:09 AM GRADER OPERATOR CBC WITH PLATELETS & DIFFERENTIAL STAT 06/15/2024 6:09 AM GRADER OPERATOR BASIC METABOLIC PANEL STAT 06/15/2024 6:09 AM GRADER OPERATOR XR CHEST PORT 1 VIEW STAT 06/14/2024 8:46 AM GRADER OPERATOR BASIC METABOLIC PANEL STAT 06/14/2024 7:08 AM GRADER OPERATOR CBC WITH PLATELETS STAT 06/14/2024 7: 08 AM GRADER OPERATOR CBC WITH PLATELETS STAT 06/13/2024 6: 32 PM GRADER OPERATOR RBC AND PLATELET MORPHOLOGY STAT 06/13/2024 6:00 AM GRADER OPERATOR CBC WITH PLATELETS AND DIFFERENTIAL STAT 06/13/2024 6:00 AM GRADER OPERATOR CBC WITH PLATELETS & DIFFERENTIAL STAT 06/13/2024 6:00 AM GRADER OPERATOR BASIC METABOLIC PANEL STAT 06/13/2024 5:59 AM GRADER OPERATOR RESPIRATORY PANEL PCR STAT 06/12/2024 9:34 PM GRADER OPERATOR BLOOD CULTURE STAT 06/12/2024 8:46 PM GRADER OPERATOR BLOOD CULTURE STAT 06/12/2024 8:46 PM GRADER OPERATOR XR CHEST 2 VIEWS STAT 06/12/2024 7:38 PM GRADER OPERATOR RBC AND PLATELET MORPHOLOGY STAT 06/12/2024 7:17 PM GRADER OPERATOR CBC WITH PLATELETS AND DIFFERENTIAL STAT 06/12/2024 7:17 PM GRADER OPERATOR TYPE AND SCREEN, ADULT Routine 06/12/2024 7:17 PM GRADER OPERATOR TROPONIN T, HIGH SENSITIVITY STAT 06/12/2024 7:17 PM GRADER OPERATOR CBC WITH PLATELETS & DIFFERENTIAL STAT 06/12/2024 7:17 PM GRADER OPERATOR INR STAT 06/12/2024 7:17 PM GRADER OPERATOR BLOOD GAS VENOUS STAT 06/12/2024 7:17 PM GRADER OPERATOR ABO/RH TYPE AND SCREEN Add-On 06/12/2024 7:17 PM GRADER OPERATOR BASIC METABOLIC PANEL STAT 06/12/2024 7:17 PM GRADER OPERATOR EKG 12-LEAD, TRACING ONLY STAT 06/12/2024 6:37 PM GRADER OPERATOR documented in this encounter Results * (ABNORMAL) CBC with platelets and differential (06/15/2024 6:09 AM GRADER OPERATOR) WBC Count 11.8(H) 4.0 - 11.0 10e3/uL 06/15/2024 6:36 AM GRADER OPERATOR [facility] RBC Count 2.27(L) 3.80 - 5.20 10e6/uL 06/15/2024 6:36 AM GRADER OPERATOR [facility] Hemoglobin 7.2(L) 11.7 - 15.7 g/dL 06/15/2024 6:36 AM GRADER OPERATOR [facility] Hematocrit 20.4(L) 35.0 - 47.0 % 06/15/2024 6:36 AM GRADER OPERATOR [facility] MCV 90 78 - 100 fL 06/15/2024 6:36 AM GRADER OPERATOR [facility] MCH 31.7 26.5 - 33.0 pg 06/15/2024 6:36 AM GRADER OPERATOR [facility] MCHC 35.3 31.5 - 36.5 g/dL 06/15/2024 6:36 AM GRADER OPERATOR [facility] RDW 19.0(H) 10.0 - 15.0 % 06/15/2024 6:36 AM GRADER OPERATOR [facility] Platelet Count 500(H) 150 - 450 10e3/uL 06/15/2024 6:36 AM GRADER OPERATOR [facility] % Neutrophils 54 % 06/15/2024 6:36 AM GRADER OPERATOR [facility] % Lymphocytes 31 % 06/15/2024 6:36 AM GRADER OPERATOR [facility] % Monocytes 9 % 06/15/2024 6:36 AM GRADER OPERATOR [facility] % Eosinophils 5 % 06/15/2024 6:36 AM GRADER OPERATOR [facility] % Basophils 2 % 06/15/2024 6:36 AM GRADER OPERATOR [facility] % Immature Granulocytes 1 % 06/15/2024 6:36 AM GRADER OPERATOR [facility] NRBCs per 100 WBC 2(H) <1 /100 025 6:36 AM GRADER OPERATOR [facility] Absolute Neutrophils 6.3 1.6 - 8.3 10e3/uL 06/15/2024 6:36 AM GRADER OPERATOR [facility] Absolute Lymphocytes 3.6 0.8 - 5.3 10e3/uL 06/15/2024 6:36 AM GRADER OPERATOR [facility] Absolute Monocytes 1.0 0.0 - 1.3 10e3/uL 06/15/2024 6:36 AM GRADER OPERATOR [facility] Absolute Eosinophils 0.6 0.0 - 0.7 10e3/uL 06/15/2024 6:36 AM GRADER OPERATOR [facility] Absolute Basophils 0.2 0.0 - 0.2 10e3/uL 06/15/2024 6:36 AM GRADER OPERATOR [facility] Absolute Immature Granulocytes 0.1 <=0.4 10e3/uL 06/15/2024 6:36 AM GRADER OPERATOR [facility] Absolute NRBCs 0.2 10e3/uL 06/15/2024 6:36 AM GRADER OPERATOR [facility] Blood BLOOD SPECIMEN / Unknown IVAD (Port) / Unknown 06/15/2024 6:09 AM GRADER OPERATOR 06/15/2024 6:18 AM GRADER OPERATOR us Rl Elias MD LAB - BLOOD ORDER SYD Final Result [facility] Lab [address] [facility], [address] [place] [phone] * (ABNORMAL) Basic metabolic panel (06/15/2024 6:09 AM GRADER OPERATOR) Sodium 136 135 - 145 mmol/L 06/15/2024 7:13 AM GRADER OPERATOR [facility] Potassium 4.4 3.4 - 5.3 mmol/L 06/15/2024 7:13 AM GRADER OPERATOR [facility] Chloride 104 98 - 107 mmol/L 06/15/2024 7:13 AM GRADER OPERATOR [facility] Carbon Dioxide (CO2) 21(L) 22 - 29 mmol/L 06/15/2024 7:13 AM GRADER OPERATOR [facility] Anion Gap 11 7 - 15 mmol/L 06/15/2024 7:13 AM GRADER OPERATOR [facility] Urea Nitrogen 10.1 6.0 - 20.0 mg/dL 06/15/2024 7:13 AM GRADER OPERATOR [facility] Creatinine 0.65 0.51 - 0.95 mg/dL 06/15/2024 7:13 AM GRADER OPERATOR [facility] GFR Estimate >90 >60 mL/min/1.7 3m2 06/15/2024 7:13 AM GRADER OPERATOR [facility] Comment:eGFR calculated us2020 CKD-EPI equation. Calcium 8.9 8.8 - 10.4 mg/dL 06/15/2024 7:13 AM GRADER OPERATOR [facility] Glucose 104(H) 70 - 99 mg/dL 06/15/2024 7:13 AM GRADER OPERATOR [facility] Blood BLOOD SPECIMEN / Unknown IVAD (Port) / Unknown 06/15/2024 6:09 AM GRADER OPERATOR 06/15/2024 6:16 AM GRADER OPERATOR us Rl Elias MD LAB - BLOOD ORDER SYD Final Result [facility] Core Lab [address] [facility], [address] [place] [phone] * XR Chest Port 1 View (06/14/2024 8:46 AM GRADER OPERATOR) Anatomical Region Laterality Modality Chest Digital Radiogra phy Impressions 06/14/2024 8:59 AM GRADER OPERATOR Impression: Further increase in ill-defined opacity projecting over the right lower lung concerning for pneumonia. MARIO ALBERTO BLACKWOOD MD Narrative 06/14/2024 8:59 AM GRADER OPERATOR Exam: XR CHEST PORT 1 VIEW, 06/14/2024 [...] (ABNORMAL) CBC with platelets (06/14/2024 7:08 AM GRADER OPERATOR) WBC Count 13.4(H) 4.0 - 11.0 10e3/uL 06/14/2024 7:46 AM GRADER OPERATOR [facility] RBC Count 2.30(L) 3.80 - 5.20 10e6/uL 06/14/2024 7:46 AM GRADER OPERATOR [facility] Hemoglobin 6.9(LL) 11.7 - 15.7 g/dL 06/14/2024 7:46 AM GRADER OPERATOR [facility] Hematocrit 21.6(L) 35.0 - 47.0 % 06/14/2024 7:46 AM GRADER OPERATOR [facility] MCV 94 78 - 100 fL 06/14/2024 7:46 AM GRADER OPERATOR [facility] MCH 30.0 26.5 - 33.0 pg 06/14/2024 7:46 AM GRADER OPERATOR [facility] MCHC 31.9 31.5 - 36.5 g/dL 06/14/2024 7:46 AM GRADER OPERATOR [facility] RDW 19.4(H) 10.0 - 15.0 % 06/14/2024 7:46 AM GRADER OPERATOR [facility] Platelet Count 501(H) 150 - 450 10e3/uL 06/14/2024 7:46 AM GRADER OPERATOR [facility] Blood BLOOD SPECIMEN / Unknown Venipuncture / Unknown 06/14/2024 7:08 AM GRADER OPERATOR 06/14/2024 7:22 AM GRADER OPERATOR Rl Elias MD LAB - BLOOD ORDER SYD Final Result [facility] [address] [facility], [address] [place] [address], [facility] * (ABNORMAL) Basic metabolic panel (06/14/2024 7:08 AM GRADER OPERATOR) Sodium 136 135 - 145 mmol/L 06/14/2024 7:57 AM GRADER OPERATOR [facility] Potassium 4.2 3.4 - 5.3 mmol/L 06/14/2024 7:57 AM GRADER OPERATOR [facility] Chloride 107 98 - 107 mmol/L 06/14/2024 7:57 AM GRADER OPERATOR [facility] Carbon Dioxide (CO2) 20(L) 22 - 29 mmol/L 06/14/2024 7:57 AM GRADER OPERATOR [facility] Anion Gap 9 7 - 15 mmol/L 06/14/2024 7:57 AM GRADER OPERATOR [facility] Urea Nitrogen 6.5 6.0 - 20.0 mg/dL 06/14/2024 7:57 AM GRADER OPERATOR [facility] Creatinine 0.71 0.51 - 0.95 mg/dL 06/14/2024 7:57 AM GRADER OPERATOR [facility] GFR Estimate >90 >60 mL/min/1.7 3m2 06/14/2024 7:57 AM GRADER OPERATOR [facility] Comment:eGFR calculated us2020 CKD-EPI equation. Calcium 8.9 8.8 - 10.4 mg/dL 06/14/2024 7:57 AM GRADER OPERATOR [facility] Glucose 92 70 - 99 mg/dL 06/14/2024 7:57 AM GRADER OPERATOR [facility] Blood BLOOD SPECIMEN / Unknown Venipuncture / Unknown 06/14/2024 7:08 AM GRADER OPERATOR 06/14/2024 7:22 AM GRADER OPERATOR Rl Elias MD LAB - BLOOD ORDER SYD Final Result [facility] [address] [facility], [address] [place] [address], [facility] * (ABNORMAL) CBC with platelets (06/13/2024 6:32 PM GRADER OPERATOR) WBC Count 15.3(H) 4.0 - 11.0 10e3/uL 06/13/2024 7:10 PM GRADER OPERATOR [facility] RBC Count 2.21(L) 3.80 - 5.20 10e6/uL 06/13/2024 7:10 PM GRADER OPERATOR [facility] Hemoglobin 6.8(LL) 11.7 - 15.7 g/dL 06/13/2024 7:10 PM GRADER OPERATOR [facility] Hematocrit 20.8(L) 35.0 - 47.0 % 06/13/2024 7:10 PM GRADER OPERATOR [facility] MCV 94 78 - 100 fL 06/13/2024 7:10 PM GRADER OPERATOR [facility] MCH 30.8 26.5 - 33.0 pg 06/13/2024 7:10 PM GRADER OPERATOR [facility] MCHC 32.7 31.5 - 36.5 g/dL 06/13/2024 7:10 PM GRADER OPERATOR [facility] RDW 19.6(H) 10.0 - 15.0 % 06/13/2024 7:10 PM GRADER OPERATOR [facility] Platelet Count 495(H) 150 - 450 10e3/uL 06/13/2024 7:10 PM GRADER OPERATOR [facility] Blood CENTRAL VENOUS CATHETER / Unknown VAD(CVC, PICC) / Unknown 06/13/2024 6:32 PM GRADER OPERATOR 06/13/2024 6:52 PM GRADER OPERATOR us Rl Elias MD LAB - BLOOD ORDER SYD Final Result [facility] [address] [facility], [address] [place] [phone] * (ABNORMAL) RBC and Platelet Morphology (06/13/2024 6:00 AM GRADER OPERATOR) RBC Morphology Confirmed RBC Indices 06/13/2024 3:45 PM GRADER OPERATOR [facility] Platelet Assessment Automated Count Confirmed. Platelet morphology is normal. Automated Count Confirmed. Platelet morphology is normal. 06/13/2024 3:45 PM GRADER OPERATOR [facility] Polychromasia Moderate(A) None Seen 06/13/2024 3:45 PM GRADER OPERATOR [facility] Sickle Cells Moderate(A) None Seen 06/13/2024 3:45 PM GRADER OPERATOR [facility] Target Cells Moderate(A) None Seen 06/13/2024 3:45 PM GRADER OPERATOR [facility] Pathologist Review Comments (Blood) Sickle shaped red blood cells are present compatible with patient's history of sickle cell disease. Ziegler Ludlow bodies are present compatible with hyposplenic blood picture. There is increased lymphocytes; however, the morphology of lymphocytes is polymorphous. Follow up CBC, diff for resolution of this findings is recommended. Danny Martinez MD on 06/13/2024 at 3:44 PM 06/13/2024 3:45 PM GRADER OPERATOR [facility] Comment:This is an appended report. These results have been appended to a previously final verified report. Blood VENOUS LINE / Unknown IVAD (Port) / Unknown 06/13/2024 6:00 AM GRADER OPERATOR 06/13/2024 6:16 AM GRADER OPERATOR us Laquita Kelley MD LAB - BLOOD ORDERABLES Edited R esult - Final [facility] Specialty Lab [address] [facility], [address] [facility] Lab [address] [facility], [address] * (ABNORMAL) CBC with platelets and differential (06/13/2024 6:00 AM GRADER OPERATOR) WBC Count 17.0(H) 4.0 - 11.0 10e3/uL 06/13/2024 9:51 AM GRADER OPERATOR [facility] RBC Count 2.11(L) 3.80 - 5.20 10e6/uL 06/13/2024 9:51 AM GRADER OPERATOR [facility] Hemoglobin 6.4(LL) 11.7 - 15.7 g/dL 06/13/2024 9:51 AM GRADER OPERATOR [facility] Hematocrit 20.3(L) 35.0 - 47.0 % 06/13/2024 9:51 AM GRADER OPERATOR [facility] MCV 96 78 - 100 fL 06/13/2024 9:51 AM GRADER OPERATOR [facility] MCH 30.3 26.5 - 33.0 pg 06/13/2024 9:51 AM GRADER OPERATOR [facility] MCHC 31.5 31.5 - 36.5 g/dL 06/13/2024 9:51 AM GRADER OPERATOR [facility] RDW 19.8(H) 10.0 - 15.0 % 06/13/2024 9:51 AM GRADER OPERATOR [facility] Platelet Count 458(H) 150 - 450 10e3/uL 06/13/2024 9:51 AM GRADER OPERATOR [facility] % Neutrophils 40 % 06/13/2024 9:51 AM GRADER OPERATOR [facility] % Lymphocytes 42 % 06/13/2024 9:51 AM GRADER OPERATOR [facility] % Monocytes 13 % 06/13/2024 9:51 AM GRADER OPERATOR [facility] % Eosinophils 3 % 06/13/2024 9:51 AM GRADER OPERATOR [facility] % Basophils 1 % 06/13/2024 9:51 AM GRADER OPERATOR [facility] % Immature Granulocytes 1 % 06/13/2024 9:51 AM GRADER OPERATOR [facility] NRBCs per 100 WBC 0 <1 /100 025 9:51 AM GRADER OPERATOR [facility] Absolute Neutrophils 6.7 1.6 - 8.3 10e3/uL 06/13/2024 9:51 AM GRADER OPERATOR [facility] Absolute Lymphocytes 7.2(H) 0.8 - 5.3 10e3/uL 06/13/2024 9:51 AM GRADER OPERATOR [facility] Absolute Monocytes 2.2(H) 0.0 - 1.3 10e3/uL 06/13/2024 9:51 AM GRADER OPERATOR [facility] Absolute Eosinophils 0.5 0.0 - 0.7 10e3/uL 06/13/2024 9:51 AM GRADER OPERATOR [facility] Absolute Basophils 0.2 0.0 - 0.2 10e3/uL 06/13/2024 9:51 AM GRADER OPERATOR [facility] Absolute Immature Granulocytes 0.1 <=0.4 10e3/uL 06/13/2024 9:51 AM GRADER OPERATOR [facility] Absolute NRBCs 0.1 10e3/uL 06/13/2024 9:51 AM GRADER OPERATOR [facility] Blood VENOUS LINE / Unknown IVAD (Port) / Unknown 06/13/2024 6:00 AM GRADER OPERATOR 06/13/2024 6:16 AM GRADER OPERATOR Narrative [facility] - 06/13/2024 9:51 AM GRADER OPERATOR Sent for review by Pathologist. See Pathologist comments after review. Tech Comments Patient Diagnosis: Sickle Cell crisis Reason for Sending: absolute lymphocyte > 5.4 us Laquita Kelley MD LAB - BLOOD ORDERABLES Final Re sult [facility] Specialty Lab [address] [facility], [address] [phone], [facility] Lab [address] [facility], [address] [address], [facility] * (ABNORMAL) Basic metabolic panel (06/13/2024 5:59 AM GRADER OPERATOR) Sodium 135 135 - 145 mmol/L 06/13/2024 6:45 AM GRADER OPERATOR [facility] Potassium 4.3 3.4 - 5.3 mmol/L 06/13/2024 6:45 AM GRADER OPERATOR [facility] Chloride 105 98 - 107 mmol/L 06/13/2024 6:45 AM GRADER OPERATOR [facility] Carbon Dioxide (CO2) 21(L) 22 - 29 mmol/L 06/13/2024 6:45 AM GRADER OPERATOR [facility] Anion Gap 9 7 - 15 mmol/L 06/13/2024 6:45 AM GRADER OPERATOR [facility] Urea Nitrogen 4.9(L) 6.0 - 20.0 mg/dL 06/13/2024 6:45 AM GRADER OPERATOR [facility] Creatinine 0.70 0.51 - 0.95 mg/dL 06/13/2024 6:45 AM GRADER OPERATOR [facility] GFR Estimate >90 >60 mL/min/1.7 3m2 06/13/2024 6:45 AM GRADER OPERATOR [facility] Comment:eGFR calculated usin 2020 CKD-EPI equation. Calcium 8.7(L) 8.8 - 10.4 mg/dL 06/13/2024 6:45 AM GRADER OPERATOR [facility] Glucose 100(H) 70 - 99 mg/dL 06/13/2024 6:45 AM GRADER OPERATOR [facility] Blood VENOUS LINE / Unknown IVAD (Port) / Unknown 06/13/2024 5:59 AM GRADER OPERATOR 06/13/2024 6:16 AM GRADER OPERATOR Laquita Kelley MD LAB - BLOOD ORDERABLES Final Re sult [facility] [address] [facility], [address] [place] [phone] * Respiratory Panel PCR (06/12/2024 9:34 PM GRADER OPERATOR) Pathologist [facility] Adenovirus Not Detected Not Detected 06/12/2024 11:53 PM GRADER OPERATOR [facility] Coronavirus Not Detected Not Detected 06/12/2024 11:53 PM GRADER OPERATOR [facility] Comment:This test detects Co ronavirus 229E, HKU1, NL63 and OC43 but does not distinguish between them. It does not detect MERS ( Respiratory Syndrome), SARS (Severe Acute Respiratory Syndrome) or 2019-nCoV (Novel 2019) Coronavirus. Human Metapneumovirus Not Detected Not Detected 06/12/2024 11:53 PM GRADER OPERATOR [facility] Human Rhin/Enterovirus Not Detected Not Detected 06/12/2024 11:53 PM GRADER OPERATOR [facility] Influenza A Not Detected Not Detected 06/12/2024 11:53 PM GRADER OPERATOR [facility] Influenza A, H1 Not Detected Not Detected 06/12/2024 11:53 PM GRADER OPERATOR [facility] Influenza A 2009 H1N1 Not Detected Not Detected 06/12/2024 11:53 PM GRADER OPERATOR [facility] Influenza A, H3 Not Detected Not Detected 06/12/2024 11:53 PM GRADER OPERATOR [facility] Influenza B Not Detected Not Detected 06/12/2024 11:53 PM GRADER OPERATOR [facility] Parainfluenza Virus 1 Not Detected Not Detected 06/12/2024 11:53 PM GRADER OPERATOR [facility] Parainfluenza Virus 2 Not Detected Not Detected 06/12/2024 11:53 PM GRADER OPERATOR [facility] Parainfluenza Virus 3 Not Detected Not Detected 06/12/2024 11:53 PM GRADER OPERATOR [facility] Parainfluenza Virus 4 Not Detected Not Detected 06/12/2024 11:53 PM GRADER OPERATOR [facility] Respiratory Syncytial Virus A Not Detected Not Detected 06/12/2024 11:53 PM GRADER OPERATOR [facility] Respiratory Syncytial Virus B Not Detected Not Detected 06/12/2024 11:53 PM GRADER OPERATOR [facility] Chlamydia Pneumoniae Not Detected Not Detected 06/12/2024 11:53 PM GRADER OPERATOR [facility] Mycoplasma Pneumoniae Not Detected Not Detected 06/12/2024 11:53 PM GRADER OPERATOR [facility] Swab NASOPHARYNGEAL STRUCTURE / Unknown Non-blood Collection / Unknown 06/12/2024 9:34 PM GRADER OPERATOR 06/12/2024 9:47 PM GRADER OPERATOR Narrative [facility] - 06/12/2024 11:53 PM GRADER OPERATOR The ePlex Respiratory Panel is a qualitative nucleic acid, multiplex, in vitro diagnostic test for the simultaneous detection and identification of multiple respiratory viral and bacterial nucleic acids in nasopharyngeal swabs collected in viral transport media from individual exhibiting signs and symptoms of respiratory infection. The assay has received FDA approval for the testing of nasopharyngeal (METAL TRIM ERECTOR) swabs only. This test is used for clinical purposes and should not be regarded as investigational or for research. This laboratory is certified under the Clinical Laboratory Improvement Amendments of 1988 (CLIA-88) as qualified to perform high complexity clinical laboratory testing. us Abdelrahman Goddard MD LAB - MICRO GENERAL ORDERABLES Final Result Performing Organization Address City/[facility]/ZIP Co de Phone Number [facility] Inf. Diseases Diag. Lab [address] [facility], [address] * Blood Culture Peripheral Blood (06/12/2024 8:46 PM GRADER OPERATOR) Culture No Growth 06/17/2024 9:31 PM GRADER OPERATOR [facility] Blood BLOOD SPECIMEN / Unknown Venipuncture / Unknown 06/12/2024 8:46 PM GRADER OPERATOR 06/12/2024 8:53 PM GRADER OPERATOR Narrative [facility] - 06/17/2024 9:31 PM GRADER OPERATOR Only an Aerobic Blood Culture Bottle was collected, interpret results with caution. Abdelrahman Goddard MD LAB - MICRO GENERAL ORDERABLES Final Result [facility] Inf. Diseases Diag. Lab [address] [facility], [address] * Blood Culture Peripheral Blood (06/12/2024 8:46 PM GRADER OPERATOR) Culture No Growth 06/17/2024 9:31 PM GRADER OPERATOR [facility] Blood BLOOD SPECIMEN / Unknown Venipuncture / Unknown 06/12/2024 8:46 PM GRADER OPERATOR 06/12/2024 8:53 PM GRADER OPERATOR us Abdelrahman Goddard MD LAB - MICRO GENERAL ORDERABLES Final Result [facility] Inf. Diseases Diag. Lab [address] [facility], [address] [place] [phone] * XR Chest 2 Views (06/12/2024 7:38 PM GRADER OPERATOR) Anatomical Region Laterality Modality Chest Computed Radiogr aphy 06/12/2024 7:38 PM GRADER OPERATOR Impressions 06/12/2024 7:42 PM GRADER OPERATOR IMPRESSION: A few faint peripheral reticulonodular opacities in the mid and lower lungs again seen. Lungs otherwise clear. No pleural effusion. No pneumothorax. Borderline cardiac enlargement unchanged. Port anterior right chest wall with right IJ central venous catheter tip low SVC. Port anterior left chest wall with left IJ central venous catheter tip low SVC. Narrative 06/12/2024 7:42 PM GRADER OPERATOR EXAM: XR CHEST 2 VIEWS LOCATION: [facility] DATE: 06/12/2024 INDICATION: CP COMPARISON: 06/03/2024, 05/27/2024 Procedure Note Surendra Hou MD - 06/12/2024 EXAM: XR CHEST 2 VIEWS LOCATION: [facility] DATE: 06/12/2024 INDICATION: CP COMPARISON: 06/03/2024, [...] Adult Type and Screen (06/12/2024 7:17 PM GRADER OPERATOR) ABO/RH(D) A POS 06/13/2024 9:17 AM GRADER OPERATOR [facility] Antibody Screen Negative Negative 06/13/2024 9:17 AM GRADER OPERATOR [facility] Comment:Current antibody scr een is negative. Patient has a history of antibody(ies). A delay in compatible red blood cells may occur. SPECIMEN EXPIRATION DATE [id number] 06/13/2024 9:17 AM GRADER OPERATOR [facility] Blood BLOOD SPECIMEN / Unknown Venipuncture / Unknown 06/12/2024 7:17 PM GRADER OPERATOR 06/12/2024 7:32 PM GRADER OPERATOR Carmen Aviles PA-C LAB - BLOOD BANK TEST ORDER Final Result Performing Organization Address [facility]/ZIP Co de Phone Number BLOOD BANK [address] [place] [phone] * (ABNORMAL) RBC and Platelet Morphology (06/12/2024 7:17 PM GRADER OPERATOR) Pathologist [facility] RBC Morphology Confirmed RBC Indices 06/12/2024 8:57 PM GRADER OPERATOR [facility] Platelet Assessment Automated Count Confirmed. Platelet morphology is normal. Automated Count Confirmed. Platelet morphology is normal. 06/12/2024 8:57 PM GRADER OPERATOR [facility] Polychromasia Slight(A) None Seen 06/12/2024 8:57 PM GRADER OPERATOR [facility] Sickle Cells Moderate(A) None Seen 06/12/2024 8:57 PM GRADER OPERATOR [facility] Target Cells Moderate(A) None Seen 06/12/2024 8:57 PM GRADER OPERATOR [facility] Blood BLOOD SPECIMEN / Unknown Venipuncture / Unknown 06/12/2024 7:17 PM GRADER OPERATOR 06/12/2024 7:32 PM GRADER OPERATOR Abdelrahman Goddard MD LAB - BLOOD ORDERABLES Final R esult [facility] Lab [address] [facility] [address], [address] [place] [phone] * (ABNORMAL) CBC with platelets and differential (06/12/2024 7:17 PM GRADER OPERATOR) WBC Count 12.5(H) 4.0 - 11.0 10e3/uL 06/12/2024 7:54 PM GRADER OPERATOR [facility] RBC Count 2.44(L) 3.80 - 5.20 10e6/uL 06/12/2024 7:54 PM GRADER OPERATOR [facility] Hemoglobin 7.5(L) 11.7 - 15.7 g/dL 06/12/2024 7:54 PM GRADER OPERATOR [facility] Hematocrit 22.2(L) 35.0 - 47.0 % 06/12/2024 7:54 PM GRADER OPERATOR [facility] MCV 91 78 - 100 fL 06/12/2024 7:54 PM GRADER OPERATOR [facility] MCH 30.7 26.5 - 33.0 pg 06/12/2024 7:54 PM GRADER OPERATOR [facility] MCHC 33.8 31.5 - 36.5 g/dL 06/12/2024 7:54 PM GRADER OPERATOR [facility] RDW 19.5(H) 10.0 - 15.0 % 06/12/2024 7:54 PM GRADER OPERATOR [facility] Platelet Count 542(H) 150 - 450 10e3/uL 06/12/2024 7:54 PM GRADER OPERATOR [facility] % Neutrophils 57 % 06/12/2024 7:54 PM GRADER OPERATOR [facility] % Lymphocytes 24 % 06/12/2024 7:54 PM GRADER OPERATOR [facility] % Monocytes 16 % 06/12/2024 7:54 PM GRADER OPERATOR [facility] % Eosinophils 1 % 06/12/2024 7:54 PM GRADER OPERATOR [facility] % Basophils 1 % 06/12/2024 7:54 PM GRADER OPERATOR [facility] % Immature Granulocytes 0 % 06/12/2024 7:54 PM GRADER OPERATOR [facility] NRBCs per 100 WBC 1(H) <1 /100 025 7:54 PM GRADER OPERATOR [facility] Absolute Neutrophils 7.1 1.6 - 8.3 10e3/uL 06/12/2024 7:54 PM GRADER OPERATOR [facility] Absolute Lymphocytes 3.0 0.8 - 5.3 10e3/uL 06/12/2024 7:54 PM GRADER OPERATOR [facility] Absolute Monocytes 2.0(H) 0.0 - 1.3 10e3/uL 06/12/2024 7:54 PM GRADER OPERATOR [facility] Absolute Eosinophils 0.2 0.0 - 0.7 10e3/uL 06/12/2024 7:54 PM GRADER OPERATOR [facility] Absolute Basophils 0.2 0.0 - 0.2 10e3/uL 06/12/2024 7:54 PM GRADER OPERATOR [facility] Absolute Immature Granulocytes 0.1 <=0.4 10e3/uL 06/12/2024 7:54 PM GRADER OPERATOR [facility] Absolute NRBCs 0.1 10e3/uL 06/12/2024 7:54 PM GRADER OPERATOR [facility] Blood BLOOD SPECIMEN / Unknown Venipuncture / Unknown 06/12/2024 7:17 PM GRADER OPERATOR 06/12/2024 7:32 PM GRADER OPERATOR us Abdelrahman Goddard MD LAB - BLOOD ORDERABLES Final R esult [facility] Lab [address] [facility], [address] [phone] * (ABNORMAL) Blood gas venous (06/12/2024 7:17 PM GRADER OPERATOR) pH Venous 7.38 7.32 - 7.43 06/12/2024 7:40 PM GRADER OPERATOR [facility] pCO2 Venous 42 40 - 50 mm Hg 06/12/2024 7:40 PM GRADER OPERATOR [facility] pO2 Venous 35 25 - 47 mm Hg 06/12/2024 7:40 PM GRADER OPERATOR [facility] Bicarbonate Venous 24 21 - 28 mmol/L 06/12/2024 7:40 PM GRADER OPERATOR [facility] Base Excess/Deficit Venous -0.9 -3.0 - 3.0 mmol/L 06/12/2024 7:40 PM GRADER OPERATOR [facility] FIO2 21 JARET 06/12/2024 7:40 PM GRADER OPERATOR [facility] Oxyhemoglobin Venous 61(L) 70 - 75 % 06/12/2024 7:40 PM GRADER OPERATOR [facility] O2 Sat, Venous 63.9(L) 70.0 - 75.0 % 06/12/2024 7:40 PM GRADER OPERATOR [facility] Blood, venous VENOUS LINE / Unknown Venipuncture / Unknown 06/12/2024 7:17 PM GRADER OPERATOR 06/12/2024 7:30 PM GRADER OPERATOR Narrative LABORATORY - 06/12/2024 7:40 PM GRADER OPERATOR In healthy individuals, oxyhemoglobin (O2Hb) and oxygen saturation (SO2) are approximately equal. In the presence of dyshemoglobins, oxyhemoglobin can be considerably lower than oxygen saturation. Abdelrahman Goddard MD LAB - BLOOD ORDERABLES Final R esult LABORATORY [facility] Lab [address] [facility], [address] [place] [address], [facility] * Troponin T, High Sensitivity (06/12/2024 7:17 PM GRADER OPERATOR) [facility] Troponin T, High Sensitivity <6 <=14 ng/L 06/12/2024 8:03 PM GRADER OPERATOR LABORATORY Comment: Either a High Sensitivity Troponin [...] Unknown Venipuncture / Unknown 06/12/2024 7:17 PM GRADER OPERATOR 06/12/2024 7:32 PM GRADER OPERATOR Abdelrahman Goddard MD LAB - BLOOD ORDERABLES Final R esult Performing Organization Address City/[facility]/ZIP Co de Phone Number LABORATORY [facility] Lab [address] [facility], [address] [place] [address], [facility] * (ABNORMAL) Basic metabolic panel (06/12/2024 7:17 PM GRADER OPERATOR) Sodium 139 135 - 145 mmol/L 06/12/2024 8:03 PM GRADER OPERATOR [facility] Potassium 4.3 3.4 - 5.3 mmol/L 06/12/2024 8:03 PM GRADER OPERATOR [facility] Chloride 109(H) 98 - 107 mmol/L 06/12/2024 8:03 PM GRADER OPERATOR [facility] Carbon Dioxide (CO2) 21(L) 22 - 29 mmol/L 06/12/2024 8:03 PM GRADER OPERATOR [facility] Anion Gap 9 7 - 15 mmol/L 06/12/2024 8:03 PM GRADER OPERATOR [facility] Urea Nitrogen 5.9(L) 6.0 - 20.0 mg/dL 06/12/2024 8:03 PM GRADER OPERATOR [facility] Creatinine 0.61 0.51 - 0.95 mg/dL 06/12/2024 8:03 PM GRADER OPERATOR [facility] GFR Estimate >90 >60 mL/min/1.7 3m2 06/12/2024 8:03 PM GRADER OPERATOR [facility] Comment:eGFR calculated 2020 CKD-EPI equation. Calcium 9.4 8.8 - 10.4 mg/dL 06/12/2024 8:03 PM GRADER OPERATOR [facility] Glucose 97 70 - 99 mg/dL 06/12/2024 8:03 PM GRADER OPERATOR [facility] Blood BLOOD SPECIMEN / Unknown Venipuncture / Unknown 06/12/2024 7:17 PM GRADER OPERATOR 06/12/2024 7:32 PM GRADER OPERATOR Abdelrahman Goddard MD LAB - BLOOD ORDERABLES Final R esult [facility] Lab 500 [facility], [address] [place] [address], [facility] * (ABNORMAL) INR (06/12/2024 7:17 PM GRADER OPERATOR) INR 1.37(H) 0.85 - 1.15 06/12/2024 7:54 PM GRADER OPERATOR [facility] Blood BLOOD SPECIMEN / Unknown Venipuncture / Unknown 06/12/2024 7:17 PM GRADER OPERATOR 06/12/2024 7:32 PM GRADER OPERATOR Abdelrahman Goddard MD LAB - BLOOD ORDERABLES Final R esult [facility] Lab [address], [address] [phone] * EKG 12-lead, tracing only (06/12/2024 6:37 PM GRADER OPERATOR) Systolic Blood Pressure mmHg RADIOLOGY RESULTS Diastolic Blood Pressure mmHg RADIOLOGY RESULTS Ventricular Rate 94 BPM RAD IOLOGY RESULTS Atrial Rate 94 BPM RADIOLOG Y RESULTS PA Interval 146 ms RADIOLOG Y RESULTS QRS Duration 84 ms RADIOLO GY RESULTS QT 346 ms RADIOLOGY RESULTS QTc 432 ms RADIOLOGY RESULTS P Odd 31 degrees RADIOLOGY RESULTS R AXIS 85 degrees RADIOLOGY RESULTS T Odd 36 degrees RADIOLOGY RESULTS Interpretation ECG Sinus rhythm Normal ECG Unconfirmed report - interpretation of this ECG is computer generated - see medical record for final interpretation Confirmed by - EMERGENCY ROOM, PHYSICIAN ([id number]), videotape editor CLAUDIO ASTORGA ([id number]) on 06/13/2024 7:17:59 AM RADIOLOGY RESULTS 06/12/2024 6:37 PM GRADER OPERATOR 06/13/2024 7:17 AM GRADER OPERATOR Alex Morton MD ECG ORDERABLES Edited Resul [...] within 2 weeks. $Given 06/15/2024 8:05 AM GRADER OPERATOR 2 puffs $Given 06/14/2024 7:59 PM GRADER OPERATOR 2 puffs $Given 06/14/2024 4:39 PM GRADER OPERATOR 2 puffs albuterol (PROVENTIL HFA/VENTOLIN HFA) inhaler [...] Indications: SepsisIndications:Sepsis $New Bag 06/12/2024 9:31 PM GRADER OPERATOR 500 mg 250 mL /hr azithromycin (ZITHROMAX) 500 mg in sodium chloride 0.9 % 250 mL intermittent infusion Routine, 500 mg, Intravenous, EVERY 24 HOURS, First dose on Wed06/13/24 at 2100, Indications: Acute chest syndromeIndications:Acute chest syndrome $New Bag 06/13/2024 10:04 PM GRADER OPERATOR 500 mg azithromycin (ZITHROMAX) tablet 500 mg Routine, 500 mg, Oral, DAILY, First dose on Wed06/14/24 at 1200, Indications: Community Acquired PneumoniaIndications:Community Acquired Pneumonia $Given 06/15/2024 8:05 AM GRADER OPERATOR 500 mg $Given 06/14/2024 12:38 PM GRADER OPERATOR 500 mg cefTRIAXone (ROCEPHIN) 1 g vial to attach to NS 100 mL bag for ADULTS or NS 50 mL bag for PEDS STAT, 1 g, Intravenous, ONCE, On Wed06/12/24 at 2005, For 1 dose, Lactated Ringer's solution is not compatible with ceftriaxone for injection, Indications: SepsisIndications:Sepsis $New Bag 06/12/2024 8:39 PM GRADER OPERATOR 1 g cefTRIAXone (ROCEPHIN) 2 g vial to attach to NS 100 ml bag for ADULTS or NS 50 ml bag for PEDS Routine, 2 g, Intravenous, EVERY 24 HOURS, First dose on Wed06/13/24 at 2000, Lactated Ringer's solution is not compatible with ceftriaxone for injection, Indications: Acute chest syndromeIndications:Acute chest syndrome $New Bag 06/14/2024 8:00 PM GRADER OPERATOR 2 g $New Bag 06/13/2024 8:16 PM GRADER OPERATOR 2 g diclofenac (VOLTAREN) 1 % topical gel 2 g 2 g, Topical, 4 TIMES DAILY PRN, inflammatory pain, Starting on Wed06/14/24 at 0912, Apply to area of pain. Use supplied dosing card to measure dose. $Given 06/15/2024 8:10 AM GRADER OPERATOR 2 g $Given 06/14/2024 12:38 PM GRADER OPERATOR 2 g diphenhydrAMINE (BENADRYL) capsule 25 mg 25 mg, Oral, EVERY 6 HOURS PRN, itching, Starting on Wed06/12/24 at 2139 $Given 06/14/2024 12:38 PM GRADER OPERATOR 25 mg $Given 06/13/2024 10:54 PM GRADER OPERATOR 25 mg $Given 06/13/2024 12:12 PM GRADER OPERATOR 25 mg diphenhydrAMINE (BENADRYL) injection 25 mg 25 mg, Intravenous, EVERY 6 HOURS PRN, itching, Starting on Wed06/12/24 at 2139 $Given 06/13/2024 5:39 AM GRADER OPERATOR 25 mg $Given 06/12/2024 10:41 PM GRADER OPERATOR 25 mg enoxaparin ANTICOAGULANT (LOVENOX) injection 40 mg 40 mg, Subcutaneous, EVERY 24 HOURS, First dose on Wed06/13/24 at 0800, Contact provider if platelet count drops by 50% or more after enoxaparin initiation OR if platelet count falls below 50 x 10e3/uL $Given 06/15/2024 7:59 AM GRADER OPERATOR 40 mg $Given 06/14/2024 8:29 AM GRADER OPERATOR 40 mg $Given 06/13/2024 7:49 AM GRADER OPERATOR 40 mg FLUoxetine (PROzac) capsule 10 mg 10 mg, Oral, DAILY, First dose on Wed06/13/24 at 0800 $Given 06/14/2024 2:37 PM GRADER OPERATOR 10 mg $Given 06/13/2024 7:50 AM GRADER OPERATOR 10 mg folic acid (FOLVITE) tablet 1 mg 1 mg, Oral, DAILY, First dose on Wed06/13/24 at 0800 $Given 06/15/2024 8:05 AM GRADER OPERATOR 1 mg $Given 06/14/2024 8:29 AM GRADER OPERATOR 1 mg $Given 06/13/2024 7:49 AM GRADER OPERATOR 1 mg heparin lock flush 10 [...] For 1 dose $Given 06/12/2024 7:24 PM GRADER OPERATOR 2 mg hydromorphone (DILAUDID) injection 2 mg 2 mg, Intravenous, ONCE, On Wed06/12/24 at 2010, For 1 dose $Given 06/12/2024 8:14 PM GRADER OPERATOR 2 mg hydromorphone (DILAUDID) injection 2 mg 2 mg, Intravenous, EVERY 3 HOURS PRN, moderate pain, IF patient cannot take oral opioid OR IF pain not managed with non-pharmacological, non-opioid, or oral opioid interventions if ordered, Starting on Wed06/12/24 at 2237, May use concomitant with non-opioid analgesics. $Given 06/12/2024 11:31 PM GRADER OPERATOR 2 mg hydromorphone (DILAUDID) injection 2 mg 2 mg, Intravenous, ONCE, On Wed06/12/24 at 2135, For 1 dose $Given 06/12/2024 9:46 PM GRADER OPERATOR 2 mg hydromorphone (DILAUDID) injection 2 mg 2 mg, Intravenous, EVERY 2 HOURS PRN, moderate pain, IF patient cannot take oral opioid OR IF pain not managed with non-pharmacological, non-opioid, or oral opioid interventions if ordered, Starting on Wed06/13/24 at 0132, May use concomitant with non-opioid analgesics. $Given 06/14/2024 12:38 PM GRADER OPERATOR 2 mg $Given 06/14/2024 10:31 AM GRADER OPERATOR 2 mg $Given 06/14/2024 8:29 AM GRADER OPERATOR 2 mg hydromorphone (DILAUDID) injection 2 mg 2 mg, Intravenous, EVERY 2 HOURS, First dose (after last modification) on Wed06/14/24 at 1415, May use concomitant with non-opioid analgesics. $Given 06/15/2024 7:58 AM GRADER OPERATOR 2 mg $Given 06/15/2024 6:01 AM GRADER OPERATOR 2 mg $Given 06/15/2024 4:11 AM GRADER OPERATOR 2 mg hydroxyurea (HYDREA) capsule 1,000 mg 1,000 mg, Oral, 2 TIMES DAILY, First dose on Wed06/12/24 at 2330, Indications: sickle cell anemia, Do not crush May require hepatic and/or renal dose or frequency adjustments. See reference link for guidelines.Indications:sickle cell anemia $Given 06/15/2024 8:06 AM GRADER OPERATOR 1,000 mg $Given 06/14/2024 8:00 PM GRADER OPERATOR 1,000 mg $Given 06/14/2024 8:30 AM GRADER OPERATOR 1,000 mg lactated ringers infusion at 75 mL/hr, Intravenous, CONTINUOUS, Starting on Wed06/12/24 at 2240, Until Wed06/13/24 at 0839 Rate/Dose Verify 06/13/2024 7:02 AM GRADER OPERATOR 75 mL/hr Rate/Dose Verify 06/13/2024 4:52 AM GRADER OPERATOR 75 mL/h r Rate/Dose Verify 06/13/2024 1:35 AM GRADER OPERATOR 75 mL/h r Lidocaine (LIDOCARE) 4 [...] Wed06/12/24 at 2138 $Given 06/13/2024 1:28 AM GRADER OPERATOR 5 mg menthol (ICY HOT) 5 % [...] Liquid not required. $Given 06/14/2024 9:20 AM GRADER OPERATOR 4 mg ondansetron (ZOFRAN) injection 4 mg 4 mg, Intravenous, ONCE, Administer over 2-5 Minutes, On Wed06/12/24 at 1850, For 1 dose $Given 06/12/2024 7:24 PM GRADER OPERATOR 4 mg ondansetron (ZOFRAN) injection 4 mg 4 mg, Intravenous, EVERY 6 HOURS PRN, nausea/vomiting - 1st line, Administer over 2-5 Minutes, Starting on Wed06/12/24 at 2237, Give IF patient unable to tolerate oral medication. This is Step 1 of nausea and vomiting management. If nausea not resolved in 15 minutes, go to Step 2 prochlorperazine (COMPAZINE). $Given 06/15/2024 4:19 AM GRADER OPERATOR 4 mg senna-docusate (SENOKOT-S/PERICOLACE) 8.6-50 MG per [...] IV dormant line $Given 06/15/2024 6:32 AM GRADER OPERATOR 3 mLs $Given 06/13/2024 8:37 PM GRADER OPERATOR 3 mLs $Given 06/13/2024 2:12 PM GRADER OPERATOR 3 mLs sodium chloride (PF) 0.9% PF flush 3 mL 3 mL, Intracatheter, EVERY 1 MIN PRN, line flush, other, to ensure patency or to lock dormant line, Starting on Wed06/12/24 at 2237 $Given 06/14/2024 2:4 2 PM GRADER OPERATOR 3 mLs $Given 06/14/2024 8:30 AM GRADER OPERATOR 3 mLs $Given 06/14/2024 1:32 AM GRADER OPERATOR 3 mLs sodium chloride 0.9% BOLUS 1,000 mL Intravenous, 1,000 mL, ONCE, at 1,000 mL/hr, Administer over 1 Hours, On Wed06/12/24 at 1850, For 1 dose $New Bag 06/12/2024 7:22 PM GRADER OPERATOR 1,000 mLs 1000 mL/hr documented in this encounter Active and Recently Administered Medications Times are shown in GRADER OPERATOR. Scheduled Medication Order 06/13/2024 06/14/2024 06/15/2024 albuterol [...] 0920 ($Given - Provider: Clay Avina RN) 3359 (See Alternative - Provider: Kathy Levy RN) [...] (See Alternative - Provider: Clay Avina RN) 0413 ($Given - Provider: Kathy Levy RN) senna-docusate [...] stools. documented in this encounter Care Teams Service Greeter Relationship Specialty Start Date End Date No Ref-Primary, Physician PCP - General 03/15/24 06/17/24 Elvira Ramseyc Medical Student 04/03/24 Case Samuel MD [address] [place] [address], [address] [place], [place] [address] Assigned Pediatric Specialist Provider 05/18/24 Juhi Benson, RN Specialty Restoration Silversmith Hematology & Oncology 05/29/24 documented as of this encounter
--- OUTSIDE RECORDS SUMMARY | 2024-07-28 21:37 | XMS_ITS | Encounter Summary ---
Author Organization [facility] Address [address] [place] [address]. 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 Advanced Treatment [address] [phone] Case Samuel MD [address] [place] [address], RO[address] [address] 10/30/2024 11:30 AM CDT Lab [facility] Cancer [address] [phone] Case Samuel MD [address] [place] [address], [address] [address] 10/30/2024 12:00 PM CDT Oncology Visit [facility] [address] [phone] Case Samuel MD [address] [facility] 484, [address] [place] [address] documented as of this encounter Goals Goal [...] on filedocumented in this encounter Care Teams Hospice Nurse Relationship Specialty Start Date End Date Veronica Joseph MD [address] [place] [address] PCP - General Family Medicine 06/18/24 Mor Ramsey Medical Student 04/03/24 Case Samuel MD [address] [facility] 484, [address] [place] [address] Assigned Pediatric Specialist Provider 05/18/24 Juhi Benson, RN Specialty Bonding Equipment Operator Hematology & Oncology 05/29/24 documented as of this encounter
--- OUTSIDE RECORDS SUMMARY | 2024-07-28 21:37 | XMS_ITS | Encounter Summary ---
Author Organization [facility] Address [address] [place] [address] Care Team Providers Care Assistant Auto Center Manager Name Role Phone No Ref-Primary, Physician Primary Care Provider Mor Ramsey Unavailable Unavailable Case Samuel MD Unavailable [phone] Juhi Benson RN Unavailable Unavailable Reason for Visit * Reason Onset Date Comments Refill Request 06/15/2024 Encounter Details Date Type Department Care Team (Late st Contact Info) Description 06/15/[address] [place] [address] Case Samuel MD [address] [place] [address], [address] [place], [place] [id number] Refill Request Social History Tobacco Use Types [...] on file Legal Sex Female 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 Case Samuel on 06/07/24 TECHNICAL CLERK Reviewed: no access Send to provider: Dr. Samuel and SOFIA ReynagaCC. HORE WIND TURBINE TECHNICIAN documented in this encounter Plan of Treatment Upcoming Encounters Date Type Department Care Team (Late st Contact Info) Description 08/07/2024 7:15 AM CDT Lab [facility] Cancer [address] [phone] Case Samuel MD [address] [place] [address], [address]OM [address] [address] 08/08/2024 8:00 AM CDT Appointment [facility] Advanced Treatment [address] [phone] Case Samuel MD [address] [place] [address], [address] [address] 10/30/2024 11:30 AM CDT Lab [facility] Cancer [address] [phone] Case Samuel MD [address] [place], [place] [address], RO[address] [address] 10/30/2024 12:00 PM CDT Oncology Visit [facility] Cancer [address] [phone] Case Samuel MD [address] [place] [address], [address] [address] documented as of this encounter Goals Goal [...] crisis documented in this encounter Care Teams Assistant Auto Center Manager Relationship Specialty Start Date End Date No Ref-Primary, Physician PCP - General 03/15/24 06/17/24 Mor Ramsey Medical Student 04/03/24 Case Samuel MD [address] [place] [address], [address] [place] [address] Assigned Pediatric Specialist Provider 05/18/24 Juhi Benson, RN Specialty Mail Order Biller Hematology & Oncology 05/29/24 documented as of this encounter
--- OUTSIDE RECORDS SUMMARY | 2024-07-28 21:37 | XMS_ITS | Encounter Summary ---
Author Organization [facility] Address [address] [place] [address] Care Team Providers Care Book Cutter Name Role Phone RoxyElvirac Unavailable Unavailable Case Samuel MD Unavailable [phone] Juhi Benson RN Unavailable Unavailable Veronica Joseph MD Primary Care Provider [phone] Reason for Visit * Reason Comments Sickle Cell Pain Crisis Pt reports pain in back and b/l legs * Auth/Cert Specialty Diagnoses / Procedures Referred By Contac t Referred To Contact EMERGENCY MEDICINE Diagnoses Acute pulmonary embolism without acute cor pulmonale, unspecified pulmonary embolism type (H) Sickle cell pain crisis (H) [facility] Emergency Department [address] [place] [address] Phone: tel: Referral ID Status Reason Start Date Expiration Date Visits Re quested Visits Authorized [id number] 1 1 Encounter Details Date Type Department Care Team ([facility] Contact Info) Description 06/23/2024 6:03 PM VP SOFTWARE ENGINEERING - 06/23/2024 9:47 PM VP SOFTWARE ENGINEERING Emergency [facility] Emergency Department [address] [place] [phone] Dayna Crane MD [address] [address] Sickle cell disease with crisis [...] file Legal Sex Female 8:25 AM VP SOFTWARE ENGINEERING Gender Identity Not on file Sexual Orientation Not on file documented as of this encounter Last Filed Vital Signs Vital Sign Reading Time Taken Comments Blood Pressure 114/66 06/23/2024 7:49 PM VP SOFTWARE ENGINEERING Pulse 100 06/23/2024 5:53 PM VP SOFTWARE ENGINEERING Temperature 36.7 C (98 F) 06/23/2024 7:49 PM VP SOFTWARE ENGINEERING Respiratory Rate 16 06/23/2024 7:49 PM VP SOFTWARE ENGINEERING Oxygen Saturation 99% 06/23/2024 7:49 PM VP SOFTWARE ENGINEERING Inhaled Oxygen Concentration - - Weight 52.2 kg (115 lb) 06/23/2024 5:53 PM VP SOFTWARE ENGINEERING Height 154.9 cm (5' 1) 06/23/2024 5:53 PM VP SOFTWARE ENGINEERING Body Mass Index 21.73 06/23/2024 5:53 PM VP SOFTWARE ENGINEERING documented in this encounter Discharge Instructions * Discharge Instructions* Dayna Crane MD - 06/23/2024 9:00 PM VP SOFTWARE ENGINEERING Please make an appointment to follow up with Your Primary Care Provider in 2-3 days. SOFTWARE ENGINEERING SOFTWARE ENGINEERING * Attachments The following attachments cannot be sent through Care Everywhere. * Sickle Cell Crisis (Libyan) documented in this encounter Medications at Time [...] 05/01/2024 naloxone (NARCAN) 4 MG/0.1ML nasal spray [place] 1 spray (4 mg) into one nostril [...] Booker - 06/23/2024 6:12 PM CST Bed: [facility] Expected date: Expected time: Means of arrival: Comments: X3 monitor: G42 SOFTWARE ENGINEERING * Melanie Menon RN - 06/23/2024 5:54 PM CST Pt presents with sickle cell crisis with reported pain to the back and b/l legs. Triage Assessment (Adult) Row Name 06/23/24 9287 Triage Assessment Airway WDL WDL Respiratory WDL Respiratory WDL WDL Skin Circulation/Temperature WDL Skin Circulation/Temperature WDL WDL Cardiac WDL Cardiac WDL WDL Peripheral/Neurovascular WDL Peripheral Neurovascular WDL WDL Cognitive/Neuro/Behavioral WDL Cognitive/Neuro/Behavioral WDL WDL SOFTWARE ENGINEERING * Dayna Crane MD - 06/23/2024 5:47 PM CST Images from the original note were not included. 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 This document has been checked and approved by the attending provider. IDayna MD, was physically present and have reviewed and verified the accuracy of this note documented by Dmitriy Steinberg medical driver. Dayna Crane MD [facility] 06/23/2024 Dayna Crane MD 07/22/24 0005 documented in this encounter Plan of Treatment Upcoming Encounters Date Type Department Care Team (Late st Contact Info) Description 08/07/2024 7:15 AM CDT Lab [facility] [address] [place] [phone] Case Samuel MD [address] [place] [address], [address] [place] [address] 08/08/2024 8:00 AM CDT Appointment [facility] [place] [address] [place] [phone] Case Samuel MD [address] [facility] 484, [address] [place] [address] 10/30/2024 11:30 AM CDT Lab [facility] [address] [place] [phone] Case Samuel MD [address] [place] [address], [address] [place] [address] 10/30/2024 12:00 PM CDT Oncology Visit [address] [phone] Case Samuel MD [address] [place] [address], [address] [place], [place] [address] documented as of this encounter Goals Goal [...] AND DIFFERENTIAL STAT 06/23/2024 6:22 PM VP SOFTWARE ENGINEERING CBC WITH PLATELETS & DIFFERENTIAL STAT 06/23/2024 6:22 PM VP SOFTWARE ENGINEERING HCG QUALITATIVE STAT 06/23/2024 6:22 PM VP SOFTWARE ENGINEERING DIFFERENTIAL STAT 06/23/2024 6:22 PM VP SOFTWARE ENGINEERING COMPREHENSIVE METABOLIC PANEL STAT 06/23/2024 6:22 PM VP SOFTWARE ENGINEERING documented in this encounter Results * (ABNORMAL) Manual Differential (06/23/2024 6:22 PM VP SOFTWARE ENGINEERING) % Neutrophils 73 % 06/23/2024 7:05 PM VP SOFTWARE ENGINEERING [facility] % Lymphocytes 24 % 06/23/2024 7:05 PM VP SOFTWARE ENGINEERING [facility] % Monocytes 2 % 06/23/2024 7:05 PM VP SOFTWARE ENGINEERING [facility] % Eosinophils 0 % 06/23/2024 7:05 PM VP SOFTWARE ENGINEERING [facility] % Basophils 2 % 06/23/2024 7:05 PM VP SOFTWARE ENGINEERING [facility] NRBCs per 100 WBC 12(H) <=0 % 06/23/2024 7:05 PM VP SOFTWARE ENGINEERING [facility] Absolute Neutrophils 7.2 1.6 - 8.3 10e3/uL 06/23/2024 7:05 PM VP SOFTWARE ENGINEERING [facility] Absolute Lymphocytes 2.3 0.8 - 5.3 10e3/uL 06/23/2024 7:05 PM VP SOFTWARE ENGINEERING [facility] Absolute Monocytes 0.2 0.0 - 1.3 10e3/uL 06/23/2024 7:05 PM VP SOFTWARE ENGINEERING [facility] Absolute Eosinophils 0.0 0.0 - 0.7 10e3/uL 06/23/2024 7:05 PM VP SOFTWARE ENGINEERING [facility] Absolute Basophils 0.2 0.0 - 0.2 10e3/uL 06/23/2024 7:05 PM VP SOFTWARE ENGINEERING [facility] Absolute NRBCs 1.2(H) <=0.0 10e3/uL 025 7:05 PM VP SOFTWARE ENGINEERING [facility] RBC Morphology Confirmed RBC Indices 06/23/2024 7:05 PM VP SOFTWARE ENGINEERING [facility] Platelet Assessment Automated Count Confirmed. Platelet morphology is normal. Automated Count Confirmed. Platelet morphology is normal. 06/23/2024 7:05 PM VP SOFTWARE ENGINEERING [facility] Polychromasia Slight(A) None Seen 06/23/2024 7:05 PM VP SOFTWARE ENGINEERING [facility] Sickle Cells Slight(A) None Seen 06/23/2024 7:05 PM VP SOFTWARE ENGINEERING [facility] Target Cells Slight(A) None Seen 06/23/2024 7:05 PM VP SOFTWARE ENGINEERING [facility] Blood BLOOD SPECIMEN / Unknown Venipuncture / Unknown 06/23/2024 6:22 PM VP SOFTWARE ENGINEERING 06/23/2024 6:34 PM VP SOFTWARE ENGINEERING Dayan Crane MD LAB - BLOOD ORDERABLES Final Re sult [facility] [address] [place] [phone] * (ABNORMAL) CBC with platelets and differential (06/23/2024 6:22 PM VP SOFTWARE ENGINEERING) [facility] WBC Count 9.8 4.0 - 11.0 10e3/uL 06/23/2024 6:45 PM VP SOFTWARE ENGINEERING [facility] RBC Count 2.49(L) 3.80 - 5.20 10e6/uL 06/23/2024 6:45 PM VP SOFTWARE ENGINEERING [facility] Hemoglobin 8.0(L) 11.7 - 15.7 g/dL 06/23/2024 6:45 PM VP SOFTWARE ENGINEERING [facility] Hematocrit 24.2(L) 35.0 - 47.0 % 06/23/2024 6:45 PM VP SOFTWARE ENGINEERING [facility] MCV 97 78 - 100 fL 06/23/2024 6:45 PM VP SOFTWARE ENGINEERING [facility] MCH 32.1 26.5 - 33.0 pg 06/23/2024 6:45 PM VP SOFTWARE ENGINEERING [facility] MCHC 33.1 31.5 - 36.5 g/dL 06/23/2024 6:45 PM VP SOFTWARE ENGINEERING [facility] RDW 18.8(H) 10.0 - 15.0 % 06/23/2024 6:45 PM VP SOFTWARE ENGINEERING [facility] Platelet Count 482(H) 150 - 450 10e3/uL 06/23/2024 6:45 PM VP SOFTWARE ENGINEERING [facility] Blood BLOOD SPECIMEN / Unknown Venipuncture / Unknown 06/23/2024 6:22 PM VP SOFTWARE ENGINEERING 06/23/2024 6:34 PM VP SOFTWARE ENGINEERING Dayna rCane MD LAB - BLOOD ORDERABLES Final Re sult [facility] [address], [address] * HCG qualitative Blood (06/23/2024 6:22 PM VP SOFTWARE ENGINEERING) Pathologist [facility] hCG Serum Qualitative Negative Negative JARET 06/23/2024 6:49 PM VP SOFTWARE ENGINEERING [facility] Comment:This test is for scr eening purposes. Results should be interpreted along with the clinical picture. Confirmation testing is available if warranted by ordering [id number], HCG Quantitative . Blood BLOOD SPECIMEN / Unknown Venipuncture / Unknown 06/23/2024 6:22 PM VP SOFTWARE ENGINEERING 06/23/2024 6:38 PM VP SOFTWARE ENGINEERING us Dayna Crane MD LAB - BLOOD ORDERABLES Final Re sult Performing Organization Address [facility]/ZIP Co de Phone Number [facility] [address], [address] * (ABNORMAL) Comprehensive metabolic panel (06/23/2024 6:22 PM VP SOFTWARE ENGINEERING) [facility] Sodium 140 135 - 145 mmol/L 06/23/2024 7:13 PM VP SOFTWARE ENGINEERING [facility] Potassium 4.3 3.4 - 5.3 mmol/L 06/23/2024 7:13 PM VP SOFTWARE ENGINEERING [facility] Carbon Dioxide (CO2) 24 22 - 29 mmol/L 06/23/2024 7:13 PM VP SOFTWARE ENGINEERING [facility] Anion Gap 7 7 - 15 mmol/L 06/23/2024 7:13 PM VP SOFTWARE ENGINEERING [facility] Urea Nitrogen 6.8 6.0 - 20.0 mg/dL 06/23/2024 7:13 PM VP SOFTWARE ENGINEERING [facility] Creatinine 0.61 0.51 - 0.95 mg/dL 06/23/2024 7:13 PM VP SOFTWARE ENGINEERING [facility] GFR Estimate >90 >60 mL/min/1.7 3m2 06/23/2024 7:13 PM VP SOFTWARE ENGINEERING [facility] Comment:eGFR calculated us2020 CKD-EPI equation. Calcium 8.8 8.8 - 10.4 mg/dL 06/23/2024 7:13 PM VP SOFTWARE ENGINEERING [facility] Chloride 109(H) 98 - 107 mmol/L 06/23/2024 7:13 PM VP SOFTWARE ENGINEERING [facility] Glucose 102(H) 70 - 99 mg/dL 06/23/2024 7:13 PM VP SOFTWARE ENGINEERING [facility] Alkaline Phosphatase 125 40 - 150 U/L 06/23/2024 7:13 PM VP SOFTWARE ENGINEERING [facility] AST 84(H) 0 - 45 U/L 06/23/2024 7:13 PM VP SOFTWARE ENGINEERING [facility] ALT 69(H) 0 - 50 U/L 06/23/2024 7:13 PM VP SOFTWARE ENGINEERING [facility] Protein Total 7.8 6.4 - 8.3 g/dL 06/23/2024 7:13 PM VP SOFTWARE ENGINEERING [facility] Albumin 4.2 3.5 - 5.2 g/dL 06/23/2024 7:13 PM VP SOFTWARE ENGINEERING [facility] Bilirubin Total 1.5(H) <=1.2 mg/dL 06/23/2024 7:13 PM VP SOFTWARE ENGINEERING [facility] Blood BLOOD SPECIMEN / Unknown Venipuncture / Unknown 06/23/2024 6:22 PM VP SOFTWARE ENGINEERING 06/23/2024 6:34 PM VP SOFTWARE ENGINEERING us Dayna Crane MD LAB - BLOOD ORDERABLES Final Re sult [facility] [address], [address] [phone] documented in this encounter Visit [...] 1 dose $Given 06/23/2024 7:43 PM VP SOFTWARE ENGINEERING 25 mg heparin lock flush 100 unit/mL injection 100 Units 100 Units, Intravenous, ONCE, On Wed06/23/24 at 2100, For 1 dose $Given 06/23/2024 9:25 PM VP SOFTWARE ENGINEERING 100 Units hydromorphone (DILAUDID) injection 2 mg 2 mg, Intravenous, EVERY 1 HOUR PRN, severe pain, Starting on Wed06/23/24 at 1806, X 3 max $Given 06/23/2024 8:46 PM VP SOFTWARE ENGINEERING 2 mg $Given 06/23/2024 7:43 PM VP SOFTWARE ENGINEERING 2 mg $Given 06/23/2024 6:28 PM VP SOFTWARE ENGINEERING 2 mg sodium chloride 0.9% BOLUS 1,000 mL Intravenous, 1,000 mL, ONCE, at 1,000 mL/hr, Administer over 1 Hours, On Wed06/23/24 at 1810, For 1 dose $New Bag 06/23/2024 6:28 PM VP SOFTWARE ENGINEERING 1,000 mLs 1000 mL/hr documented in this encounter Active and Recently Administered Medications Times are shown in VP SOFTWARE ENGINEERING. Scheduled Medication Order 06/21/2024 06/22/2024 06/23/2024 diphenhydrAMINE [...] nas: Tristian France RN)194 ($Given - Provider: Masno Moon RN)2045 ($Given - Provider: Mason Moon RN) documented in this encounter Care Teams Book Cutter Relationship Specialty Start Date End Date Veronica Joseph MD [address] [place] [address] PCP - General Family Medicine 06/18/24 Mor Ramsey Medical Student 04/03/24 Case Samuel MD [address] [place] [address] 484, [address] [place] [address] Assigned Pediatric Specialist Provider 05/18/24 Juhi Benson, RN Specialty Square Dance Caller Hematology & Oncology 05/29/24 documented as of this encounter
--- OUTSIDE RECORDS SUMMARY | 2024-07-28 21:37 | XMS_ITS | Encounter Summary ---
Author Organization [place] Address [address] [place] [address]. 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 Cancer [address] [phone] Case Samuel MD [address] [place] [address], ROOM [address] [address] 08/08/2024 8:00 AM CDT Appointment [facility] Advanced Treatment [address] [phone] Case Samuel MD [address] [place] [address], ROOM [address] [address] 10/30/2024 11:[address] [facility] Cancer [address] [phone] Case Samuel MD [address] [place] [address], ROOM [address] [address] 10/30/2024 12:00 PM CDT Oncology Visit [facility] Cancer [address] [phone] Case Samuel MD [address] [facility] EMERGENCY DEPARTMENT 484, RO[address] [place] [address] documented as of this encounter Goals Goal [...] on filedocumented in this encounter Care Teams Embedded Software Design Engineer Relationship Specialty Start Date End Date Veronica Joseph MD [address] [place] [address] PCP - General Family Medicine 06/18/24 Mor Ramsey Medical Student 04/03/24 Case Samuel MD [address] [facility] EMERGENCY DEPARTMENT 484, RO[address] [place] [address] Assigned Pediatric Specialist Provider 05/18/24 Juhi [facility], RN Specialty Shoveler Hematology & Oncology 05/29/24 documented as of this encounter
--- OUTSIDE RECORDS SUMMARY | 2024-07-28 21:37 | XMS_ITS | Encounter Summary ---
Author Organization [place] Address [address] [place] [address] Care Team Providers Care Civil Engineer Helper Name Role Phone RoxyElvirac Unavailable Unavailable Case Samuel MD Unavailable [phone] Juhi Benson RN Unavailable Unavailable Veronica Joseph MD Primary Care Provider [phone] Reason for Visit * Reason Comments Sickle Cell Pain Crisis Encounter Details Date Type Department Care Team ([facility] st Contact Info) Description 07/09/2024 2:34 AM CDT - 07/09/2024 5:41 AM CDT Emergency [facility] Emergency Department [address] [place] [phone] Shauna Calle DO [address] [place] [address] Sickle cell pain crisis (H) Discharge Disposition: [...] through Care Everywhere. 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 Medications lactated ringers BOLUS 500 mL (0 mLs Intravenous Stopped 07/09/24 4070) ondansetron (ZOFRAN) injection 4 mg (4 mg Intravenous $Given 07/09/24 9597) hydromorphone (DILAUDID) injection 2 mg (2 mg Intravenous $Given 07/09/24 6316) diphenhydrAMINE (BENADRYL) capsule 50 mg (50 mg Oral $Given 07/09/24 8104) heparin lock flush 100 unit/mL injection 100 Units (100 Units Intravenous $Given 07/09/24 0479) Labs Ordered and Resulted from Time of [...] Final diagnoses: Sickle cell pain crisis (H) [facility] EMERGENCY DEPARTMENT 07/09/2024 Shauna Calle DO 07/25/24 [...] CDT Lab [facility] Cancer [address] [phone] Case Samuel MD [address] [place] [address] 484, [address] [place], [place] [address] 08/08/2024 8:[address] [facility] [address] [phone] Case Samuel MD [address] [place] [address] 484, [address] [place] [address] 10/30/2024 11:30 AM CDT Lab [facility] Cancer [address] [phone] Case Samuel MD [address] [place] [address] 484, [address] [place], [place] [address] 10/30/2024 12:00 PM CDT Oncology Visit [facility] Cancer [address] [phone] Case Samuel MD [address] [place] [address] 484, RO[address] [place] [address] documented as of this encounter Goals Goal [...] BLOOD ORDERABLES Final Res ult [facility] [place] Core Lab [address] [facility], Room [address] [place] [phone] * (ABNORMAL) RBC and Platelet Morphology (07/09/2024 2:54 AM CDT) [facility] RBC Morphology Confirmed RBC Indices 07/09/2024 5:21 [...] BLOOD ORDERABLES Final Res ult [facility] [place] Core Lab 500 [facility], Room [address] [phone] * (ABNORMAL) [...] BLOOD ORDERABLES Final Res ult U [facility] [place] Core Lab 500 [facility], Room [address] [phone] * (ABNORMAL) Reticulocyte count (07/09/2024 2:54 AM CDT) [facility] % Reticulocyte 10.5(H) 0.5 - 2.0 % 07/09/2024 3:27 AM CDT [facility] Comment:x2 dilution Absolute Reticulocyte 0.319(H) 0.025 - 0.095 10e6/uL 07/09/2024 3:27 AM CDT [facility] Comment:x2 dilution Blood BLOOD SPECIMEN / Unknown Venipuncture / Unknown 07/09/2024 2:54 AM CDT 07/09/2024 2:58 AM CDT Shauna Calle DO LAB - BLOOD ORDERABLES Final Res ult Performing Organization Address [facility]/State/ZIP Co de Phone Number LAB[facility]ATORY [facility] [place] Core Lab 500 [facility], Room [address] [phone] documented in this encounter Visit [...] RN) documented in this encounter Care Teams Civil Engineer Helper Relationship Specialty Start Date End Date Veronica Joseph MD [address] [place] [address] PCP - General Family Medicine 06/18/24 Mor Ramsey Medical Student 04/03/24 Case Samuel MD [address] [place] [address] 484, [address] [place] [address] Assigned Pediatric Specialist Provider 05/18/24 Juhi [facility], RN Specialty Media Executive Hematology & Oncology 05/29/24 documented as of this encounter
--- OUTSIDE RECORDS SUMMARY | 2024-07-28 21:37 | XMS_ITS | Encounter Summary ---
Author Organization [facility] Address [address] [place] [address] Care Team Providers Care Credit Union Examiner Name Role Phone Roxy Mor Unavailable Unavailable Case Samuel MD Unavailable [phone] Juhi Benson RN Unavailable Unavailable Veronica Joseph MD Primary Care Provider [phone] Reason for Visit * Reason Comments Sickle Cell Pain Crisis Encounter Details Date Type Department Care Team (Late st Contact Info) Description 06/22/2024 5:23 PM LINUX ENGINEER - 06/22/2024 10:02 PM LINUX ENGINEER Emergency [facility] Emergency Department [address] [place] [phone] Lynne Varner MD [address] [place] [id number] Sickle cell anemia with crisis (H) Discharge [...] on file Legal Sex Female 8:25 AM LINUX ENGINEER Gender Identity Not on file Sexual Orientation Not on file documented as of this encounter Last Filed Vital Signs Vital Sign Reading Time Taken Comments Blood Pressure 104/73 06/22/2024 5:03 PM LINUX ENGINEER Pulse 100 06/22/2024 5:03 PM LINUX ENGINEER Temperature 36.8 C (98.2 F) 06/22/2024 5:03 PM LINUX ENGINEER Respiratory Rate 16 06/22/2024 5:03 PM LINUX ENGINEER Oxygen Saturation 99% 06/22/2024 5:03 PM LINUX ENGINEER Inhaled Oxygen Concentration - - Weight 52.2 kg (115 lb) 06/22/2024 5:03 PM LINUX ENGINEER Height 154.9 cm (5' 1) 06/22/2024 5:03 PM LINUX ENGINEER Body Mass Index 21.73 06/22/2024 5:03 PM LINUX ENGINEER documented in this encounter Discharge Instructions * Discharge Instructions* Lynne Varner MD - 06/22/2024 5:43 PM LINUX ENGINEER TODAY'S VISIT: You were seen today for [...] new or worsening symptoms or any concerns. X ENGINEER * Attachments The following attachments cannot be sent through Care Everywhere. * Sickle Cell Crisis (Jordanian) documented in this encounter Medications at [...] 05/01/2024 naloxone (NARCAN) 4 MG/0.1ML nasal spray [place] 1 spray (4 mg) into one nostril [...] Surgical History, and Social History in the [employer] system. Past Medical History: Diagnosis Date [...] 11 naloxone (NARCAN) 4 MG/0.1ML nasal spray [place] 1 spray (4 mg) into one nostril [...] Concern Not on file Social History Narrative Btzp-wy-bddf mom. Recently moved to [place] from [place], [place]. She is 1 of 9 [...] Social Connections: Socially Integrated (03/28/2024) [facility] Social [facility]ctions Do you often feel [...] Status --------- ------ CBC with platelets and d...[[id number]] Abnormal Final result RBC and Platelet Morphology[[id number]] Please view results for these tests on [...] with crisis (H) LYNNE VARNER MD 06/22/2024 [facility] EMERGENCY DEPARTMENT Lynne Varner MD 06/22/24 1646 X ENGINEER * Milagros Lofton RN - 06/22/2024 5:06 PM CST Pt is here for sickle cell crisis. Pain in her back and both legs. PT took her home dilaudid oral at 2 pm. Pt coming in for her pain. Denies any symptoms. Triage Assessment (Adult) Row Name 06/22/24 0081 Triage Assessment Airway WDL WDL Respiratory WDL Respiratory WDL WDL Skin Circulation/Temperature WDL Skin Circulation/Temperature WDL WDL Cardiac WDL Cardiac WDL WDL Cardiac Rhythm Other (Comment) Peripheral/Neurovascular WDL Peripheral Neurovascular WDL WDL Cognitive/Neuro/Behavioral WDL Cognitive/Neuro/Behavioral WDL WDL X ENGINEER documented in this encounter Plan of Treatment Upcoming Encounters Date Type Department Care Team (Late st Contact Info) Description 08/07/2024 7:15 AM CDT Lab [facility] Cancer [address] [phone] Case Samuel MD [address] [place] [address], [address] 6[address] 08/08/2024 8:00 AM CDT Appointment [facility] Advanced Treatment [address] [phone] Case Samuel MD [address] [place] [address], [address] [address] 10/30/2024 11:30 AM CDT Lab [facility] Cancer [address] [phone] Case Samuel MD [address] [place], [place] [address], ROOM [address] [address] 10/30/2024 12:00 PM CDT Oncology Visit [facility] Cancer [address] [phone] Case Samuel MD [address] [place], [place] [address], ROOM [address] [address] documented as of this encounter Goals Goal [...] PLATELETS AND DIFFERENTIAL STAT 06/22/2024 7:10 PM LINUX ENGINEER CBC WITH PLATELETS & DIFFERENTIAL STAT 06/22/2024 7:10 PM LINUX ENGINEER RETICULOCYTE COUNT STAT 06/22/2024 7: 10 PM LINUX ENGINEER HCG QUALITATIVE STAT 06/22/2024 7:10 PM LINUX ENGINEER COMPREHENSIVE METABOLIC PANEL STAT 06/22/2024 7:10 PM LINUX ENGINEER documented in this encounter Results * (ABNORMAL) CBC with platelets and differential (06/22/2024 7:10 PM LINUX ENGINEER) WBC Count 13.7(H) 4.0 - 11.0 10e3/uL 06/22/2024 7:47 PM LINUX ENGINEER [facility] RBC Count 2.48(L) 3.80 - 5.20 10e6/uL 06/22/2024 7:47 PM LINUX ENGINEER [facility] Hemoglobin 8.2(L) 11.7 - 15.7 g/dL 06/22/2024 7:47 PM LINUX ENGINEER [facility] Hematocrit 23.3(L) 35.0 - 47.0 % 06/22/2024 7:47 PM LINUX ENGINEER [facility] MCV 94 78 - 100 fL 06/22/2024 7:47 PM LINUX ENGINEER [facility] MCH 33.1(H) 26.5 - 33.0 pg 06/22/2024 7:47 PM LINUX ENGINEER [facility] MCHC 35.2 31.5 - 36.5 g/dL 06/22/2024 7:47 PM LINUX ENGINEER [facility] RDW 18.6(H) 10.0 - 15.0 % 06/22/2024 7:47 PM LINUX ENGINEER [facility] Platelet Count 470(H) 150 - 450 10e3/uL 06/22/2024 7:47 PM LINUX ENGINEER [facility] % Neutrophils 78 % 06/22/2024 7:47 PM LINUX ENGINEER [facility] % Lymphocytes 16 % 06/22/2024 7:47 PM LINUX ENGINEER [facility] % Monocytes 4 % 06/22/2024 7:47 PM LINUX ENGINEER [facility] % Eosinophils 1 % 06/22/2024 7:47 PM LINUX ENGINEER [facility] % Basophils 1 % 06/22/2024 7:47 PM LINUX ENGINEER [facility] % Immature Granulocytes 1 % 06/22/2024 7:47 PM LINUX ENGINEER [facility] NRBCs per 100 WBC 3(H) <1 /100 025 7:47 PM LINUX ENGINEER [facility] Absolute Neutrophils 10.6(H) 1.6 - 8.3 10e3/uL 06/22/2024 7:47 PM LINUX ENGINEER [facility] Absolute Lymphocytes 2.3 0.8 - 5.3 10e3/uL 06/22/2024 7:47 PM LINUX ENGINEER [facility] Absolute Monocytes 0.5 0.0 - 1.3 10e3/uL 06/22/2024 7:47 PM LINUX ENGINEER [facility] Absolute Eosinophils 0.1 0.0 - 0.7 10e3/uL 06/22/2024 7:47 PM LINUX ENGINEER [facility] Absolute Basophils 0.1 0.0 - 0.2 10e3/uL 06/22/2024 7:47 PM LINUX ENGINEER [facility] Absolute Immature Granulocytes 0.1 <=0.4 10e3/uL 06/22/2024 7:47 PM LINUX ENGINEER [facility] Absolute NRBCs 0.4 10e3/uL 06/22/2024 7:47 PM LINUX ENGINEER [facility] Blood VENOUS LINE / Unknown Venipuncture / Unknown 06/22/2024 7:10 PM LINUX ENGINEER 06/22/2024 7:16 PM LINUX ENGINEER us Lynne Varner MD LAB - BLOOD ORDERABLES Fin al Result [facility] [place] Core Lab [address] [facility] [address] Building, Room 3-580 [place] [address] * (ABNORMAL) Reticulocyte count (06/22/2024 7:10 PM LINUX ENGINEER) [facility] % Reticulocyte 5.3(H) 0.5 - 2.0 % 06/22/2024 7:23 PM LINUX ENGINEER [facility] Absolute Reticulocyte 0.130(H) 0.025 - 0.095 10e6/uL 06/22/2024 7:23 PM LINUX ENGINEER [facility] Blood VENOUS LINE / Unknown Venipuncture / Unknown 06/22/2024 7:10 PM LINUX ENGINEER 06/22/2024 7:16 PM LINUX ENGINEER Lynne Varner MD LAB - BLOOD ORDERABLES Fin al Result Performing Organization Address [facility] Co de Phone Number U [facility] [place] [facility] Lab [address] [facility], [address] [phone] * HCG qualitative Blood (06/22/2024 7:10 PM LINUX ENGINEER) [facility] hCG Serum Qualitative Negative Negative JARET 06/22/2024 7:45 PM LINUX ENGINEER [facility] Comment:This test is for scr eening purposes. Results should be interpreted along with the clinical picture. Confirmation testing is available if warranted by ordering [id number], HCG Quantitative . Blood VENOUS LINE / Unknown Venipuncture / Unknown 06/22/2024 7:10 PM LINUX ENGINEER 06/22/2024 7:26 PM LINUX ENGINEER Lynne Varner MD LAB - BLOOD ORDERABLES Fin al Result [facility] [place] [facility] Lab [address] [facility], [address] [phone] * (ABNORMAL) Comprehensive metabolic panel (06/22/2024 7:10 PM LINUX ENGINEER) [facility] Sodium 137 135 - 145 mmol/L 06/22/2024 8:00 PM LINUX ENGINEER [facility] Potassium 4.5 3.4 - 5.3 mmol/L 06/22/2024 8:00 PM LINUX ENGINEER [facility] Carbon Dioxide (CO2) 21(L) 22 - 29 mmol/L 06/22/2024 8:00 PM LINUX ENGINEER [facility] Anion Gap 8 7 - 15 mmol/L 06/22/2024 8:00 PM LINUX ENGINEER [facility] Urea Nitrogen 12.1 6.0 - 20.0 mg/dL 06/22/2024 8:00 PM LINUX ENGINEER [facility] Creatinine 0.71 0.51 - 0.95 mg/dL 06/22/2024 8:00 PM LINUX ENGINEER [facility] GFR Estimate >90 >60 mL/min/1.7 3m2 06/22/2024 8:00 PM LINUX ENGINEER [facility] Comment:eGFR calculated 2020 CKD-EPI equation. Calcium 9.5 8.8 - 10.4 mg/dL 06/22/2024 8:00 PM LINUX ENGINEER [facility] Chloride 108(H) 98 - 107 mmol/L 06/22/2024 8:00 PM LINUX ENGINEER [facility] Glucose 100(H) 70 - 99 mg/dL 06/22/2024 8:00 PM LINUX ENGINEER [facility] Alkaline Phosphatase 119 40 - 150 U/L 06/22/2024 8:00 PM LINUX ENGINEER [facility] AST 62(H) 0 - 45 U/L 06/22/2024 8:00 PM LINUX ENGINEER [facility] ALT 54(H) 0 - 50 U/L 06/22/2024 8:00 PM LINUX ENGINEER [facility] Protein Total 7.8 6.4 - 8.3 g/dL 06/22/2024 8:00 PM LINUX ENGINEER [facility] Albumin 4.1 3.5 - 5.2 g/dL 06/22/2024 8:00 PM LINUX ENGINEER [facility] Bilirubin Total 1.4(H) <=1.2 mg/dL 06/22/2024 8:00 PM LINUX ENGINEER [facility] Blood VENOUS LINE / Unknown Venipuncture / Unknown 06/22/2024 7:10 PM LINUX ENGINEER 06/22/2024 7:16 PM LINUX ENGINEER us Lynne Varner MD LAB - BLOOD ORDERABLES Fin al Result [facility] Lab [address] [facility] [address] Building, Room 3[address]580 [place] [address] documented in this encounter Visit Diagnoses Diagnosis Sickle cell anemia with crisis (H) Hb-SS disease with crisis documented in this encounter Administered Medications Inactive Administered Medications - up to 3 most recent administrations Medication Order MAR Action Action Date Dose Rate Site diphenhydrAMINE (BENADRYL) capsule 25 mg 25 mg, Oral, ONCE, On [place] 06/22/24 at 1740, For 1 dose $Given 06/22/2024 7:19 PM LINUX ENGINEER 25 mg heparin lock flush 100 unit/mL injection 100 Units 100 Units, Intravenous, ONCE, On [place] 06/22/24 at 2150, For 1 dose $Given 06/22/2024 9:53 PM LINUX ENGINEER 100 Units hydromorphone (DILAUDID) injection 2 mg 2 mg, Intravenous, EVERY 1 HOUR PRN, severe pain, Starting on [place] 06/22/24 at 1735, For 3 doses $Given 06/22/2024 9:33 PM LINUX ENGINEER 2 mg $Given 06/22/2024 8:34 PM LINUX ENGINEER 2 mg $Given 06/22/2024 7:20 PM LINUX ENGINEER 2 mg lactated ringers BOLUS 1,000 mL Intravenous, 1,000 mL, ONCE, at 1,000 mL/hr, Administer over 1 Hours, On [place]lali 06/22/24 at 1740, For 1 dose $New Bag 06/22/2024 7:19 PM LINUX ENGINEER 1,000 mLs 1000 mL/hr ondansetron (ZOFRAN) injection 4 mg 4 mg, Intravenous, EVERY 30 MIN PRN, nausea, vomiting, Administer over 2-5 Minutes, Starting on [place]ali 06/22/24 at 1735, For 3 doses, May repeat in 30 minutes as needed, up to 3 doses. $Given 06/22/2024 7:19 PM LINUX ENGINEER 4 mg documented in this encounter Active and Recently Administered Medications Times are shown in LINUX ENGINEER. Scheduled Medication Order 06/20/2024 06/21/2024 06/22/2024 diphenhydrAMINE [...] RN) documented in this encounter Care Teams Credit Union Examiner Relationship Specialty Start Date End Date Veronica Joseph MD [address] [place] [address] PCP - General Family Medicine 06/18/24 Mor Ramsey Medical Student 04/03/24 Case Samuel MD [address] [place] [address], [address] [place] [address] Assigned Pediatric Specialist Provider 05/18/24 Juhi Benson, SOFIA Specialty Administrative Nursing Supervisor Hematology & Oncology 05/29/24 documented as of this encounter
--- OUTSIDE RECORDS SUMMARY | 2024-07-28 21:37 | XMS_ITS | Encounter Summary ---
Author Organization [facility] Address [address] [place] [address]. [place] [address] Care Team Providers Care Coding Clerk Name Role Phone No Ref-Primary, Physician Primary Care Provider Mor Ramsey Unavailable Unavailable Case Samuel MD Unavailable [phone] Juhi Benson RN Unavailable Unavailable Encounter Details [...] on file Legal Sex Female 8:25 AM DIALYSIS CLINICAL MANAGER Gender Identity Not on file Sexual Orientation Not on file documented as of this encounter Plan of Treatment Upcoming Encounters Date Type Department Care Team (Late st Contact Info) Description 08/07/2024 7:15 AM CDT Lab [facility] Cancer [address] [phone] Case Samuel MD [address] [place], [place] [address], RO[address] [address] 08/08/2024 8:00 AM CDT Appointment [facility] Advanced Treatment [address] [phone] Case Samuel MD [address] [place], [place] [address], RO[address] [address] 10/30/2024 11:30 AM CDT Lab [facility] Cancer [address] [phone] Case Samuel MD [address] [place], [place] [address], RO[address] [address] 10/30/2024 12:00 PM CDT Oncology Visit [facility] Cancer [address] [phone] Case Samuel MD [address] [facility] 484, [address] [place], [place] [address] documented as of this encounter Goals Goal [...] on filedocumented in this encounter Care Teams Coding Clerk Relationship Specialty Start Date End Date No Ref-Primary, Physician PCP - General 03/15/24 06/17/24 Mor Ramsey Medical Student 04/03/24 Case Samuel MD [address] [facility] 484, [address] [place] [address] Assigned Pediatric Specialist Provider 05/18/24 Juhi Benson, RN Specialty Battery Wrecker Operator Hematology & Oncology 05/29/24 documented as of this encounter
--- OUTSIDE RECORDS SUMMARY | 2024-07-28 21:37 | XMS_ITS ---
Author Organization [facility] Address [address] [place] [address] Care Team Providers Care Painter Airbrush Name Role Phone Roxy Mor Unavailable Unavailable Case Samuel MD Unavailable [phone] Juhi Benson RN Unavailable Unavailable Veronica Joseph MD Primary Care Provider [phone] Transitional Care Management Status:Closed (Closed) Start date:06/16/2024 Enrollment date:06/16/2024 End date:06/30/2024 Close reason:Goals met Continued Care and Services Coordination
--- OUTSIDE RECORDS SUMMARY | 2024-07-28 21:37 | XMS_ITS | Encounter Summary ---
Author Organization [facility] Address [address] [place] [address]. [place] [address] Care Team Providers Care Streetcar Conductor Name Role Phone [employer] Unavailable Unavailable Case Samuel MD Unavailable [phone] Juhi Benson RN Unavailable Unavailable Veronica Joseph MD Primary Care Provider [phone] Reason for Visit * Reason Onset Date Comments Refill Request 07/10/2024 Encounter Details Date Type Department Care Team (Late st Contact Info) Description 07/10/[address] [place] [phone] Case Samuel MD [address] [place] [address], [address] [place], [place] [id number] Refill Request Social History Tobacco Use Types [...] file Legal Sex Female 8:25 AM FRONT END WEB DEVELOPER Gender Identity Not on file Sexual [...] Visits:No Next appointment: 07/10/[address] Samuel RAIL FILLER Reviewed: No access Routed/Paged provider: Dr. Case Samuel. documented in this encounter Plan of Treatment Upcoming Encounters Date Type Department Care Team (Late st Contact Info) Description 08/07/2024 7:15 AM CDT Lab [facility] [address] [phone] Case Samuel MD [address] [place] [address], [address] [address] 08/08/2024 8:00 AM CDT Appointment [facility] [address] [phone] Case Samuel MD [address] [place] [address], [address] [id number] 10/30/2024 11:30 AM CDT Lab [facility] [address] [phone] Case Samuel MD [address] [place] [address], [address] [address] 10/30/2024 12:00 PM CDT Oncology Visit [facility] [address] [phone] Case Samuel MD [address] [place], [place] [address], [address] [id number] documented as of this encounter Goals Goal [...] crisis documented in this encounter Care Teams Streetcar Conductor Relationship Specialty Start Date End Date Veronica Joseph MD [address] [place] [address] PCP - General Family Medicine 06/18/24 Mor Ramsey Medical Student 04/03/24 Case Samuel MD [address] [place] [address], [address] [place] [address] Assigned Pediatric Specialist Provider 05/18/24 Juhi Benson, RN Specialty Software Packager Hematology & Oncology 05/29/24 documented as of this encounter
--- OUTSIDE RECORDS SUMMARY | 2024-07-28 21:37 | XMS_ITS | Encounter Summary ---
Author Organization [facility] Address [address] [place] [address]. [place] [address] Care Team Providers Care Contract Programmer Name Role Phone No Ref-Primary, Physician Primary Care Provider Mor Ramsey Unavailable Unavailable Case Samuel MD Unavailable [phone] Juhi Benson RN Unavailable Unavailable Veronica Joseph MD Primary Care Provider [phone] Reason for Visit * Reason Comments Shortness of Breath Chest Pain Fever * Auth/Cert Specialty Diagnoses / Procedures Referred By Contac t Referred To Contact EMERGENCY MEDICINE Diagnoses Sickle cell pain crisis (H) Formerly [facility] Emergency Department [address] [place] [address] Phone: tel: Referral ID Status Reason Start Date Expiration Date Visits Re quested Visits Authorized [id number] 1 1 Encounter Details Date Type Department Care Team (Late st Contact Info) Description 06/16/2024 4:46 PM RESIDENTIAL SALES ASSOCIATE - 06/20/2024 11:00 AM RESIDENTIAL SALES ASSOCIATE Hospital Encounter Formerly [facility] 7C Med Surg [address] [place] [phone] Abimael Schofield MD [address] [place] [id number] Esdras Markham MD [address] [place] [address] German Hall MD [address] [place] [address] [address] [place] [address] Sickle cell pain crisis (H) [...] on file Legal Sex Female 8:25 AM RESIDENTIAL SALES ASSOCIATE Gender Identity Not on file Sexual Orientation Not on file documented as of this encounter Last Filed Vital Signs Vital Sign Reading Time Taken Comments Blood Pressure 106/62 06/20/2024 6:00 AM RESIDENTIAL SALES ASSOCIATE Pulse 78 06/19/2024 2:25 PM RESIDENTIAL SALES ASSOCIATE Temperature 36.7 C (98 F) 06/20/2024 6:00 AM RESIDENTIAL SALES ASSOCIATE Respiratory Rate 18 06/20/2024 6:00 AM RESIDENTIAL SALES ASSOCIATE Oxygen Saturation 99% 06/20/2024 6:00 AM RESIDENTIAL SALES ASSOCIATE Inhaled Oxygen Concentration - - Weight - [...] her pain can be managed with her COLOR BUFFER dilaudid 4mg q6h PRN. Hematology team is aware of discharge today and will arrange follow up. - continue COLOR BUFFER dilaudid 4 mg Q6H PRN & further supportive cares as needed - follow up with Hematology as scheduled by their team - Continue COLOR BUFFER hydroxyurea 1000mg BID - Continue COLOR BUFFER folic acid 1mg daily - Continue topical diclofenac, lidocaine, icy hot PRN #ANGIE, resolved Likely prerenal with decreased PO intake. Cr 0.92 on admission, baseline ~0.61- 0.7. Improved with maintenance fluids. Encouraged adequate water intake at home. #Insomnia - melatonin 3 mg PRN #Anxiety - Continue COLOR BUFFER fluoxetine Consultations This Hospital Stay HEMATOLOGY ADULT IP CONSULT CARE MANAGEMENT / SOCIAL WORK IP CONSULT Code Status Full Code Nivia Carvajal, MS3 Ricardo 1 Hospitalist Service [facility] 7C MED SURG [address] [facility] [id number] Physical Exam Vital Signs: Temp: 98 ??F [...] upon discharge: activity as tolerated Follow Up ([facility]) Follow up with primary care provider, Veronica Joseph, within 7 days for hospital follow- up. Thefollowing labs/tests are recommended: CBC. Appointments on [facility] and/or [facility] (with [facility] or [facility] provider or service). Call [phone] if you haven't heard regarding these appointments [...] inadequate. naloxone (NARCAN) 4 MG/0.1ML nasal spray [place] 1 spray (4 mg) into one nostril [...] Aydee Coughlin MD at 06/20/2024 11:52 AM RESIDENTIAL SALES ASSOCIATE DENTIAL SALES ASSOCIATE DENTIAL SALES ASSOCIATE Associated attestation - Aydee Coughlin MD - 06/20/2024 11:52 AM RESIDENTIAL SALES ASSOCIATE Physician Attestation I saw and evaluated this [...] 05/01/2024 naloxone (NARCAN) 4 MG/0.1ML nasal spray [place] 1 spray (4 mg) into one nostril [...] stated on the papers. Home supply :N/A. DENTIAL SALES ASSOCIATE * Araceli Ramires MD - 06/20/2024 8:42 [...] Overall, I spent 35 minutes today (DOS) [id number] and/or coordinating care as documented above and specifically listed as below: --Reviewing documentation related to patient's history and this current admission available in [facility]Connect --Review and clinical interpretation of pertinent laboratory test results from this admission --Discussion with the patient --Discussion with patient's primary team --Documentation in the electronic health record DENTIAL SALES ASSOCIATE * Linda Lomax MD - 06/19/2024 7:43 [...] senna PRN for supportive measures - Continue COLOR BUFFER hydroxyurea 1000mg BID - Continue COLOR BUFFER folic acid 1mg daily - Monitoring CBC [...] melatonin 3 mg PRN #Anxiety - Continue COLOR BUFFER fluoxetine - Benadryl PRN per Pain Plan [...] Attending Physician, Dr. Dr Hall . Nivia Cavrajal, MS3 Medical Student Medicine Service, [facility] TEAM [address] [place] [address] Securely message with [facility] (more info) Text page via [facility] [...] previous visit (from the past 24 hours). DENTIAL SALES ASSOCIATE * Tejal Curry RN - 06/18/2024 6:54 PM CST Shift: 7462-3192 VS: Temp: 98.3 ??F (36.8 ??C) Temp [...] light appropriately Plan: Continue POC; manage pain DENTIAL SALES ASSOCIATE * Linda Lomax MD - 06/18/2024 10:18 AM CST [facility] Progress Note - Medicine Service, [facility] TEAM [...] benadryl, senna PRN for supportive measures -Continue COLOR BUFFER hydroxyurea 1000mg BID -Continue COLOR BUFFER folic acid 1mg daily - monitoring CBC w/diff, LDH, reticulocyte count, and LDH daily - type & screened, consented - continue topical diclofenac, lidocaine, icy hot PRN - blood cultures, urine culture >> NGTD #ANGIE, resolved Likely prerenal with decreased PO intake. - mIVF with LR - CMP in AM #Insomnia - Continue COLOR BUFFER fluoxetine - melatonin 3 mg PRN Diet: [...] Hall . Linda Lomax MD Medicine Service, [address] Securely message with [facility] (more info) Text page via [facility] [...] German Hall MD at 06/18/2024 3:16 PM RESIDENTIAL SALES ASSOCIATE DENTIAL SALES ASSOCIATE DENTIAL SALES ASSOCIATE Associated attestation - German Hall MD - 06/18/2024 3:16 PM RESIDENTIAL SALES ASSOCIATE Attestation: This patient has been seen and [...] Overall, I spent 35 minutes today (DOS) [id number] and/or coordinating care as documented above and specifically listed as below: --Reviewing documentation related to patient's history and this current admission available in uConnect --Review and clinical interpretation of pertinent laboratory test results from this admission --Discussion with the patient --Discussion with patient's primary team --Documentation in the electronic health record DENTIAL SALES ASSOCIATE * Rl Elias MD - 06/17/2024 11:31 AM CST [facility] Progress Note - Medicine Service, [facility] Date of Admission: 06/16/2024 [...] benadryl, senna PRN for supportive measures -Continue COLOR BUFFER hydroxyurea 1000mg BID -Continue COLOR BUFFER folic acid 1mg daily - monitoring CBC w/diff, LDH, reticulocyte count, and LDH daily - type & screened, consented - continue topical diclofenac, lidocaine, icy hot PRN - blood cultures, urine culture to evaluate any further source of infection #ANGIE Likely prerenal with decreased PO intake. - mIVF with LR - CMP in AM #Insomnia - Continue COLOR BUFFER fluoxetine - melatonin 3 mg PRN Diet: [...] Hall . RL ELIAS MD Medicine Service, [address] Securely message with [facility] ([employer] info) Text page via [facility] [...] Narrative EXAM: XR CHEST 2 VIEWS LOCATION: [facility] DATE: 06/16/2024 INDICATION: chest pain COMPARISON: 06/12/2024 Impression IMPRESSION: Left chest port catheter in stable position. Stable position of right central venous catheter. No airspace opacity, pleural effusion or pneumothorax. Cosigned by German Hall MD at 06/18/2024 3:07 PM RESIDENTIAL SALES ASSOCIATE DENTIAL SALES ASSOCIATE DENTIAL SALES ASSOCIATE DENTIAL SALES ASSOCIATE Associated attestation - German Hall MD - 06/18/2024 3:07 PM RESIDENTIAL SALES ASSOCIATE Attestation: This patient has been seen and [...] IV -mIVF with NS at 100ml/hr -Continue COLOR BUFFER hydroxyurea 1000mg BID -Continue COLOR BUFFER folic acid 1mg -PRN zofran for nausea -PRN benadryl for itching #ANGIE Likely prerenal with decreased PO intake. -mIVF with NS -Monitor #Insomnia -Continue COLOR BUFFER fluoxetine Diet: Regular DVT Prophylaxis: Enoxaparin (Lovenox) SQ Santiago Catheter: Not present Fluids: NS at 100ml/hr Lines: PRESENT Cardiac Monitoring: None Code Status: Full Clinically Significant Risk Factors Present on Admission # Anemia: based on hgb <11 # Financial/Environmental Concerns: Disposition Plan Expected Discharge Date: 06/18/2024 The patient's care was discussed with the Attending Physician, Dr. Markham . 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, had port-a-cath in [facility] Functional asplenia Gallstones Hb-SS disease [...] 4 MG/0.1ML nasal spray No No Sig: [place] 1 spray (4 mg) into one nostril [...] Esdras Markham MD at 06/17/2024 11:00 AM RESIDENTIAL SALES ASSOCIATE DENTIAL SALES ASSOCIATE DENTIAL SALES ASSOCIATE Associated attestation - Esdras Markham MD - 06/17/2024 11:00 AM RESIDENTIAL SALES ASSOCIATE Physician Attestation I saw this patient with [...] this encounter Consult Notes * Adelaide Acevedo, CERTIFIED PERSONAL CHEF - 06/18/2024 10:26 AM CSTAssociated Order(s): CARE [...] Communication Assessment Patient's communication style: spoken language (Burundian or Bilingual) Cognitive Cognitive/Neuro/Behavioral: WDL Living Environment: [...] Depression: Not at risk (04/11/2024) [facility] PHQ-2 TOTAL SCORE: 1 [...] Social Connections: Socially Integrated (03/28/2024) Received from [facility] Social Connections Do you often feel [...] No Current Concerns Values/Beliefs: Spiritual, Cultural Beliefs, Mormon Practices, Values that affect care: no Discussed [...] Care management signing off. LAURA Palacios 06/18/2024 Accident Examiner Social Work and Care Management Department SEARCHABLE in [facility] - search SOCIAL WORK [place] ([phone]) Wednesday and Wednesday Units: 4A Vocera, 4C Vocera, & 4E Vocera Units: 5A 6765-1972 Vocera, 5A 4579-3052 Vocera , BMT SW 1 BMT SW 2, BMT SW 3 & BMT SW 4 5C OffService 5401 - 5416 5C Off Service 4835-2545 Units: 6A Vocera & 6B Vocera Units: 6C Vocera Units: 7A Vocera & 7B Vocera Units: 7C Med Surg 7401 thru 7418 and 7C Med Surg 7502 thru 7521 Unit: [place] ED Vocera & [place] Obs Vocera [facility] ([phone]) Wednesday and Wednesday Units: 5 Ortho Vocera, 5 Med Surg Vocera & WB ED Vocera Units: 6 Med Surg Vocera, 8 Med Surg Vocera, & 10 ICU Vocera After hours Vocera [facility] and After Hours Vocera [place] Please NOTE changes to times below: Wednesday & Wednesday (1629 - 2029) Wed-Wed ([phone]) [facility] Recognized Holidays (3266-4706) Units: ALL - see above VOCERA links to units DENTIAL SALES ASSOCIATE * Drake Nina MD - 06/17/2024 8:55 AM CSTAssociated Order(s): HEMATOLOGY ADULT IP CONSULT Images from the original note were not included. Hematology Consult Note Date of Service: 06/17/2024 Patient: Gianna Hernández Admission Date: 06/16/2024 Hospital Day # 1 Hematology Diagnosis: Sickle Cell Disease Primary Outpatient Gore Seamer: Dr. Samuel Reason for Consult: Vasoocclusive pain [...] the care coordination note. Please continue her COLOR BUFFER hydrea and folic acid. Recommendations: - Please follow pain plan as outlined in the care coordination note in the summary section. - Ordered 1 unit PRBC along with blood consent which is placed in the chart. - Please continue COLOR BUFFER hydrea 1000 mg BID, Folate 1mg daily. [...] Drake Nina MD Hematology/Oncology/BMT Fellow PGY4 Pager: [phone] History of Present Illness: Gianna Hernández is [...] Currently Drug use: Never Social History Narrative Lebb-em-cado mom. Recently moved to [place] from [place], [place]. She is 1 of 9 [...] Social Connections: Socially Integrated (03/28/2024) [facility] Social [facility]ctions Do you often [...] inadequate. naloxone (NARCAN) 4 MG/0.1ML nasal spray [place] 1 spray (4 mg) into one nostril [...] Araceli Ramires MD at 06/17/2024 11:14 AM RESIDENTIAL SALES ASSOCIATE DENTIAL SALES ASSOCIATE DENTIAL SALES ASSOCIATE Associated attestation - Araceli Ramires MD - 06/17/2024 11:14 AM RESIDENTIAL SALES ASSOCIATE Hematology Consult Attending Attestation I reviewed the [...] Overall, I spent 60 minutes today (DOS) [id number] and/or coordinating care as documented above and specifically listed as below: --Reviewing documentation related to patient's history and this current admission available in [facility] --Review and clinical interpretation of pertinent [...] time: Means of arrival: Comments: G 41 DENTIAL SALES ASSOCIATE * Abimael Schofield MD - 06/16/2024 5:18 PM CST ED Provider Note [facility] History Chief Complaint Patient presents with [...] sinus tachycardia rate of 122 with a TX interval of 0.128 and a QRS duration of 0.074. The patient had a normal axis with no acute ST or T wave changes significant for ischemia. This is read by me personally. Procedures Results for orders placed or performed during the hospital encounter of 06/16/24 Chest XR, PA & LAT Status: None Narrative EXAM: XR CHEST 2 VIEWS LOCATION: [facility] DATE: 06/16/2024 INDICATION: chest pain COMPARISON: 06/12/2024 [...] Range ABO/RH(D) A POS SPECIMEN EXPIRATION DATE [id number] CBC with platelets differential Status: Abnormal (In process) Narrative The following orders were created for panel order CBC with platelets differential. Procedure Abnormality Status --------- ------ CBC with platelets and d...[[id number]] Abnormal Preliminary result RBC and Platelet Morphology[[id number]] In process Please view results for these tests on the individual orders. ABO/Rh type and screen Status: None (In process) Narrative The following orders were created for panel order ABO/Rh type and screen. Procedure Abnormality Status --------- ------ Adult Type and Screen[[id number]] Preliminary result Please view results for these tests on the individual orders. Medications sodium chloride (PF) 0.9% PF flush 3 mL (has no administration in time range) sodium chloride (PF) 0.9% PF flush 3 mL (has no administration in time range) sodium chloride 0.9% BOLUS 500 mL (500 mLs Intravenous $New Bag 06/16/24 4704) sodium chloride 0.9 % infusion (has no administration in time range) hydromorphone (DILAUDID) injection 2 mg (2 mg Intravenous $Given 06/16/24 0678) Critical care was not performed. Medical Decision [...] chest syndrome Admit Med Abimael Schofield MD [facility] EMERGENCY DEPARTMENT 06/16/2024 Abimael Schofield MD 06/16/24 1846 DENTIAL SALES ASSOCIATE * Yelitza Manriquez RN - 06/16/2024 4:37 [...] WDL WDL Cognitive/Neuro/Behavioral WDL Cognitive/Neuro/Behavioral WDL WDL DENTIAL SALES ASSOCIATE documented in this encounter Miscellaneous Notes * [...] verbalized hope to discharge to home today DENTIAL SALES ASSOCIATE * Summary of Care - Rene Morocho RN - 06/20/2024 12:38 AM CST (Change note type to summary of care) Reason for admission: Sickle cell crisis Admitted from: [facility] Report received from: Sarai Aburto [...] (January-July only): No, pt declined Detailed Belongings: Worthing sweater, brown jacket, sweatpants, glasses, wallet, phone, 2 chargers, air pods DENTIAL SALES ASSOCIATE * Plan of Care - Sarai Shrestha RN - 06/20/2024 12:11 AM CST Goal Outcome Evaluation: BP 103/79,HR 87bpm, resp 18,O2 99 RA Shift:6047-2620 Alert and oriented x4. Independent with ADLs. VSS. Pain managed with Q 2 hrs IV Dilaudid. C/O nausea PRN Zofran administered;effective. R chest port infusing LR @ 75 ml/hr. Report given to Rene BLACK in 7C. DENTIAL SALES ASSOCIATE * Plan of Care - Amelia Gannon RN - 06/19/2024 6:26 AM CST Images from the original note were not included. Shift: 6817-4436 VS: BP 118/85 (BP Location: Left arm) Pulse 99 Temp 98.2 ??F (36.8 ??C) (Oral) Resp 18 IaT195% Pain: Sickle cell pain. Tx with scheduled dilaudid q2hr Neuro: WDL, A&Ox4 Cardiac: WDL Respiratory: WDL, on RA, on pulse ox GI/: WDL, Voiding spontaneously Diet/Appetite: Regular diet LDA's: R. Chest port infusing LR @ 75 Skin: WDL Activity: Independent Tests/Procedures: Pertinent Labs/Lab Collection: Plan: Goal Outcome Evaluation: DENTIAL SALES ASSOCIATE * Plan of Care - Adelaide Acevedo MSW - 06/18/2024 11:05 AM CST Goal Outcome Evaluation: Plan of Care Reviewed With: patient Overall Patient Progress: improvingOverall Patient Progress: improving Pt anticipates discharge home w/ family once med ready DENTIAL SALES ASSOCIATE * Plan of Care - Amelia Gannon RN - 06/18/2024 6:51 AM CST Shift: 6420-0724 VS: BP 115/66 (BP Location: Right arm, [...] Platelet, Creatinine, Reticulocyte Plan: Goal Outcome Evaluation: DENTIAL SALES ASSOCIATE * Plan of Care - Lowell Pepper RN - 06/17/2024 9:37 PM CSTSummary: 4079-0075 BP 110/64 (BP Location: Right arm, Patient [...] Goal: Optimal Comfort and Wellbeing Outcome: Progressing DENTIAL SALES ASSOCIATE * Provider Notification - Lowell Pepper RN - 06/17/2024 10:00 AM CST 06/17/24 0857 Critical Test Results/Notification Critical Lab Result (Lab Name and Value) Hgb 6.3 What Time Did The Lab Notify You? (follow up page. to day time provider.) Provider Notified yes Date of Provider Notification 06/17/24 Time of Provider Notification 0848 Mechanism of Provider notification telephone (via Son[facility]) What Provider Did You Notify? Neptali Elias MD Response aware (per primary teams. Awaiting recommendations from hematology team.) DENTIAL SALES ASSOCIATE * Plan of Care - Zaynab Veliz RN - 06/17/2024 6:55 AM CST Goal Outcome Evaluation: Plan of Care Reviewed With: patient Overall Patient Progress: improving Outcome Evaluation: Pt presented to ED with acute onset left sided chest pain & sickle cell pain crisis Shift: 5910-8201 VS: Stable on RA, afebrile Neuro: A&Ox4 Labs: hemoglobin 6.3, provider notified Pain/Nausea: pain rated 8-9/10 PRN: benadryl X2, zofran x 1 Diet: Regular IV Access: none Infusion(s): NACL 100ml/hr Lines/Drains: L-chest wall GI/: voids without difficulty Skin: intact Mobility: up ad chandler Plan: Continue POC DENTIAL SALES ASSOCIATE * Provider Notification - Zaynab Veliz RN - 06/17/2024 6:47 AM RESIDENTIAL SALES ASSOCIATE Jovan encinas lab called, critical value, pt hemoglobin 6.3. DENTIAL SALES ASSOCIATE * Medication Scribe - Admission Medication History - Yennifer Edwards - 06/17/2024 4:14 AM CST Medication Scribe Admission Medication History Admission medication history is complete. The information provided in this note is only as accurateas the sources available at the time of the update. Information Source(s): Patient via in-person Pertinent Information: per pt+CE, pt reported taking medications on COLOR BUFFER medication list as directed. No DRH. Changes made to COLOR BUFFER medication list: Added: None Deleted: None Changed: None Allergies reviewed with patient and updates made in EHR: yes Medication History Completed By: Yennifer Edwards 06/17/2024 4:14 AM COLOR BUFFER Med List Medication Sig Last Dose/Taking cefpodoxime [...] 1 tablet by mouth daily. 06/16/2024 Morning DENTIAL SALES ASSOCIATE DENTIAL SALES ASSOCIATE documented in this encounter Plan of Treatment Upcoming Encounters Date Type Department Care Team (Late st Contact Info) Description 08/07/2024 7:15 AM CDT Lab [facility] [address] [phone] Case Samuel MD [address] [place] [address], [address] [place] [address] 08/08/2024 8:00 AM CDT Appointment [facility] Advanced Treatment [address] [phone] Case Samuel MD [address] [place] [address], [address] [place] [address] 10/30/2024 11:30 AM CDT Lab [facility] [address] [place] [phone] Case Samuel MD [address] [facility], [address] [place], [place] [address] 10/30/2024 12:00 PM CDT Oncology Visit [facility] [address] [place] [phone] Case Samuel MD [address] [facility], [address] [place] [address] documented as of this encounter Goals Goal [...] PLATELETS AND DIFFERENTIAL STAT 06/20/2024 5:48 AM RESIDENTIAL SALES ASSOCIATE LACTATE DEHYDROGENASE Routine 06/20/2024 5:48 AM RESIDENTIAL SALES ASSOCIATE CBC WITH PLATELETS & DIFFERENTIAL STAT 06/20/2024 5:48 AM RESIDENTIAL SALES ASSOCIATE RETICULOCYTE COUNT Routine 06/20/2024 5: 48 AM RESIDENTIAL SALES ASSOCIATE COMPREHENSIVE METABOLIC PANEL Routine 06/20/2024 5:48 AM RESIDENTIAL SALES ASSOCIATE RBC AND PLATELET MORPHOLOGY STAT 06/19/2024 9:30 AM RESIDENTIAL SALES ASSOCIATE CBC WITH PLATELETS AND DIFFERENTIAL STAT 06/19/2024 9:30 AM RESIDENTIAL SALES ASSOCIATE LACTATE DEHYDROGENASE STAT 06/19/2024 9:30 AM RESIDENTIAL SALES ASSOCIATE CBC WITH PLATELETS & DIFFERENTIAL STAT 06/19/2024 9:30 AM RESIDENTIAL SALES ASSOCIATE RETICULOCYTE COUNT STAT 06/19/2024 9: 30 AM RESIDENTIAL SALES ASSOCIATE COMPREHENSIVE METABOLIC PANEL STAT 06/19/2024 9:30 AM RESIDENTIAL SALES ASSOCIATE PLATELET COUNT STAT 06/19/2024 12:17 AM RESIDENTIAL SALES ASSOCIATE CREATININE STAT 06/19/2024 12:17 AM RESIDENTIAL SALES ASSOCIATE CBC WITH PLATELETS AND DIFFERENTIAL STAT 06/18/2024 8:24 AM RESIDENTIAL SALES ASSOCIATE LACTATE DEHYDROGENASE STAT 06/18/2024 8:24 AM RESIDENTIAL SALES ASSOCIATE CBC WITH PLATELETS & DIFFERENTIAL STAT 06/18/2024 8:24 AM RESIDENTIAL SALES ASSOCIATE RETICULOCYTE COUNT STAT 06/18/2024 8: 24 AM RESIDENTIAL SALES ASSOCIATE DIFFERENTIAL STAT 06/18/2024 8:24 AM RESIDENTIAL SALES ASSOCIATE COMPREHENSIVE METABOLIC PANEL STAT 06/18/2024 8:24 AM RESIDENTIAL SALES ASSOCIATE ROUTINE UA WITH MICROSCOPIC REFLEX TO CULTURE STAT 06/17/2024 1:11 PM RESIDENTIAL SALES ASSOCIATE TRANSFUSE RED BLOOD CELLS (UNIT) STAT 06/17/2024 10:26 AM RESIDENTIAL SALES ASSOCIATE PREPARE RED BLOOD CELLS (UNIT) STAT 06/17/2024 9:12 AM RESIDENTIAL SALES ASSOCIATE TRANSFERRIN Add-On 06/17/2024 6:16 AM RESIDENTIAL SALES ASSOCIATE IRON AND IRON BINDING CAPACITY Add-On 06/17/2024 6:16 AM RESIDENTIAL SALES ASSOCIATE BASIC METABOLIC PANEL STAT 06/17/2024 6:16 AM RESIDENTIAL SALES ASSOCIATE CBC WITH PLATELETS STAT 06/17/2024 6: 16 AM RESIDENTIAL SALES ASSOCIATE TROPONIN T, HIGH SENSITIVITY STAT 06/16/2024 9:33 PM RESIDENTIAL SALES ASSOCIATE XR CHEST 2 VIEWS STAT 06/16/2024 6:09 PM RESIDENTIAL SALES ASSOCIATE RBC AND PLATELET MORPHOLOGY STAT 06/16/2024 5:37 PM RESIDENTIAL SALES ASSOCIATE CBC WITH PLATELETS AND DIFFERENTIAL STAT 06/16/2024 5:37 PM RESIDENTIAL SALES ASSOCIATE TYPE AND SCREEN, ADULT STAT 5:37 PM RESIDENTIAL SALES ASSOCIATE TROPONIN T, HIGH SENSITIVITY STAT 06/16/2024 5:37 PM RESIDENTIAL SALES ASSOCIATE CBC WITH PLATELETS & DIFFERENTIAL STAT 06/16/2024 5:37 PM RESIDENTIAL SALES ASSOCIATE PROLACTIN STAT 06/16/2024 5:37 PM RESIDENTIAL SALES ASSOCIATE COMPREHENSIVE METABOLIC PANEL STAT 06/16/2024 5:37 PM RESIDENTIAL SALES ASSOCIATE BLOOD CULTURE STAT 06/16/2024 5:37 PM RESIDENTIAL SALES ASSOCIATE ABO/RH TYPE AND SCREEN STAT 5 5:37 PM RESIDENTIAL SALES ASSOCIATE EKG 12-LEAD, TRACING ONLY STAT 06/16/2024 4:55 PM RESIDENTIAL SALES ASSOCIATE documented in this encounter Results * (ABNORMAL) CBC with platelets and differential (06/20/2024 5:48 AM RESIDENTIAL SALES ASSOCIATE) [facility] WBC Count 9.3 4.0 - 11.0 10e3/uL 06/20/2024 6:05 AM RESIDENTIAL SALES ASSOCIATE [facility] RBC Count 2.54(L) 3.80 - 5.20 10e6/uL 06/20/2024 6:05 AM RESIDENTIAL SALES ASSOCIATE [facility] Hemoglobin 8.0(L) 11.7 - 15.7 g/dL 06/20/2024 6:05 AM RESIDENTIAL SALES ASSOCIATE [facility] Hematocrit 23.2(L) 35.0 - 47.0 % 06/20/2024 6:05 AM RESIDENTIAL SALES ASSOCIATE [facility] MCV 91 78 - 100 fL 06/20/2024 6:05 AM RESIDENTIAL SALES ASSOCIATE [facility] MCH 31.5 26.5 - 33.0 pg 06/20/2024 6:05 AM RESIDENTIAL SALES ASSOCIATE [facility] MCHC 34.5 31.5 - 36.5 g/dL 06/20/2024 6:05 AM RESIDENTIAL SALES ASSOCIATE [facility] RDW 18.4(H) 10.0 - 15.0 % 06/20/2024 6:05 AM RESIDENTIAL SALES ASSOCIATE [facility] Platelet Count 435 150 - 450 10e3/uL 06/20/2024 6:05 AM RESIDENTIAL SALES ASSOCIATE [facility] % Neutrophils 47 % 06/20/2024 6:05 AM RESIDENTIAL SALES ASSOCIATE [facility] % Lymphocytes 43 % 06/20/2024 6:05 AM RESIDENTIAL SALES ASSOCIATE [facility] % Monocytes 6 % 06/20/2024 6:05 AM RESIDENTIAL SALES ASSOCIATE [facility] % Eosinophils 3 % 06/20/2024 6:05 AM RESIDENTIAL SALES ASSOCIATE [facility] % Basophils 1 % 06/20/2024 6:05 AM RESIDENTIAL SALES ASSOCIATE [facility] % Immature Granulocytes 1 % 06/20/2024 6:05 AM RESIDENTIAL SALES ASSOCIATE [facility] NRBCs per 100 WBC 1(H) <1 /100 025 6:05 AM RESIDENTIAL SALES ASSOCIATE [facility] Absolute Neutrophils 4.4 1.6 - 8.3 10e3/uL 06/20/2024 6:05 AM RESIDENTIAL SALES ASSOCIATE [facility] Absolute Lymphocytes 4.0 0.8 - 5.3 10e3/uL 06/20/2024 6:05 AM RESIDENTIAL SALES ASSOCIATE [facility] Absolute Monocytes 0.5 0.0 - 1.3 10e3/uL 06/20/2024 6:05 AM RESIDENTIAL SALES ASSOCIATE [facility] Absolute Eosinophils 0.3 0.0 - 0.7 10e3/uL 06/20/2024 6:05 AM RESIDENTIAL SALES ASSOCIATE [facility] Absolute Basophils 0.1 0.0 - 0.2 10e3/uL 06/20/2024 6:05 AM RESIDENTIAL SALES ASSOCIATE [facility] Absolute Immature Granulocytes 0.1 <=0.4 10e3/uL 06/20/2024 6:05 AM RESIDENTIAL SALES ASSOCIATE [facility] Absolute NRBCs 0.1 10e3/uL 06/20/2024 6:05 AM RESIDENTIAL SALES ASSOCIATE [facility] Blood (Portacath) IVAD (Port) / Unknown 06/20/2024 5:48 AM RESIDENTIAL SALES ASSOCIATE 06/20/2024 5:55 AM RESIDENTIAL SALES ASSOCIATE Rl Elias MD LAB - BLOOD ORDER SYD Final Result Performing Organization Address [facility] Co de Phone Number [facility] [place] [facility] [address] [facility], [address] * (ABNORMAL) Reticulocyte count (06/20/2024 5:48 AM RESIDENTIAL SALES ASSOCIATE) % Reticulocyte 9.6(H) 0.5 - 2.0 % 06/20/2024 6:37 AM RESIDENTIAL SALES ASSOCIATE [facility] Absolute Reticulocyte 0.236(H) 0.025 - 0.095 10e6/uL 06/20/2024 6:37 AM RESIDENTIAL SALES ASSOCIATE [facility] Blood (Portacath) IVAD (Port) / Unknown 06/20/2024 5:48 AM RESIDENTIAL SALES ASSOCIATE 06/20/2024 5:55 AM RESIDENTIAL SALES ASSOCIATE Rl lEias MD LAB - BLOOD ORDER SYD Final Result Performing Organization Address [place]/[facility] Co de Phone Number [facility] [place] [facility] [address] [facility], [address] * (ABNORMAL) Comprehensive metabolic panel (06/20/2024 5:48 AM RESIDENTIAL SALES ASSOCIATE) Sodium 133(L) 135 - 145 mmol/L 06/20/2024 6:35 AM RESIDENTIAL SALES ASSOCIATE [facility] Potassium 4.6 3.4 - 5.3 mmol/L 06/20/2024 6:35 AM RESIDENTIAL SALES ASSOCIATE [facility] Carbon Dioxide (CO2) 21(L) 22 - 29 mmol/L 06/20/2024 6:35 AM RESIDENTIAL SALES ASSOCIATE [facility] Anion Gap 8 7 - 15 mmol/L 06/20/2024 6:35 AM RESIDENTIAL SALES ASSOCIATE [facility] Urea Nitrogen 14.6 6.0 - 20.0 mg/dL 06/20/2024 6:35 AM RESIDENTIAL SALES ASSOCIATE [facility] Creatinine 0.66 0.51 - 0.95 mg/dL 06/20/2024 6:35 AM RESIDENTIAL SALES ASSOCIATE [facility] GFR Estimate >90 >60 mL/min/1.7 3m2 06/20/2024 6:35 AM RESIDENTIAL SALES ASSOCIATE [facility] Comment:eGFR calculated us2020 CKD-EPI equation. Calcium 8.7(L) 8.8 - 10.4 mg/dL 06/20/2024 6:35 AM RESIDENTIAL SALES ASSOCIATE [facility] Chloride 104 98 - 107 mmol/L 06/20/2024 6:35 AM RESIDENTIAL SALES ASSOCIATE [facility] Glucose 100(H) 70 - 99 mg/dL 06/20/2024 6:35 AM RESIDENTIAL SALES ASSOCIATE [facility] Alkaline Phosphatase 98 40 - 150 U/L 06/20/2024 6:35 AM RESIDENTIAL SALES ASSOCIATE [facility] AST 67(H) 0 - 45 U/L 06/20/2024 6:35 AM RESIDENTIAL SALES ASSOCIATE [facility] ALT 40 0 - 50 U/L 06/20/2024 6:35 AM RESIDENTIAL SALES ASSOCIATE [facility] Protein Total 7.2 6.4 - 8.3 g/dL 06/20/2024 6:35 AM RESIDENTIAL SALES ASSOCIATE [facility] Albumin 3.9 3.5 - 5.2 g/dL 06/20/2024 6:35 AM RESIDENTIAL SALES ASSOCIATE [facility] Bilirubin Total 1.5(H) <=1.2 mg/dL 06/20/2024 6:35 AM RESIDENTIAL SALES ASSOCIATE [facility] Blood (Portacath) IVAD (Port) / Unknown 06/20/2024 5:48 AM RESIDENTIAL SALES ASSOCIATE 06/20/2024 5:55 AM RESIDENTIAL SALES ASSOCIATE us Rl Elias MD LAB - BLOOD ORDER SYD Final Result [facility] [place] [facility] [address] [facility], [address] [place] [address] * (ABNORMAL) Lactate Dehydrogenase (06/20/2024 5:48 AM RESIDENTIAL SALES ASSOCIATE) Lactate Dehydrogenase 571(H) 0 - 250 U/L 06/20/2024 6:35 AM RESIDENTIAL SALES ASSOCIATE [facility] Blood (Portacath) IVAD (Port) / Unknown 06/20/2024 5:48 AM RESIDENTIAL SALES ASSOCIATE 06/20/2024 5:55 AM RESIDENTIAL SALES ASSOCIATE Rl Elias MD LAB - BLOOD ORDER SYD Final Result [facility] [place] [facility] [address] [facility], [address] [place] [address] * (ABNORMAL) RBC and Platelet Morphology (06/19/2024 9:30 AM RESIDENTIAL SALES ASSOCIATE) Pathologist [facility] RBC Morphology Confirmed RBC Indices 06/19/2024 11:43 AM RESIDENTIAL SALES ASSOCIATE [facility] Platelet Assessment Automated Count Confirmed. Giant platelets are present.(A) Automated Count Confirmed. Platelet morphology is normal. 06/19/2024 11:43 AM RESIDENTIAL SALES ASSOCIATE [facility] Giant Platelets Slight(A) None Seen 11:43 AM RESIDENTIAL SALES ASSOCIATE [facility] Elliptocytes None Seen None Seen 06/19/2024 11:43 AM RESIDENTIAL SALES ASSOCIATE [facility] Polychromasia Slight(A) None Seen 06/19/2024 11:43 AM RESIDENTIAL SALES ASSOCIATE [facility] RBC Fragments Slight(A) None Seen 06/19/2024 11:43 AM RESIDENTIAL SALES ASSOCIATE [facility] Reactive Lymphocytes Present(A) None Seen 06/19/2024 11:43 AM RESIDENTIAL SALES ASSOCIATE [facility] Sickle Cells Moderate(A) None Seen 06/19/2024 11:43 AM RESIDENTIAL SALES ASSOCIATE [facility] Smudge Cells Present(A) None Seen 06/19/2024 11:43 AM RESIDENTIAL SALES ASSOCIATE [facility] Target Cells Moderate(A) None Seen 06/19/2024 11:43 AM RESIDENTIAL SALES ASSOCIATE [facility] Blood CENTRAL VENOUS CATHETER / Unknown VAD(CVC, PICC) / Unknown 06/19/2024 9:30 AM RESIDENTIAL SALES ASSOCIATE 06/19/2024 9:42 AM RESIDENTIAL SALES ASSOCIATE Rl Elias MD LAB - BLOOD ORDER SYD Final Result [facility] [place] [facility] [address] [facility], [address] [place] [address], [facility] * (ABNORMAL) CBC with platelets and differential (06/19/2024 9:30 AM RESIDENTIAL SALES ASSOCIATE) WBC Count 9.9 4.0 - 11.0 10e3/uL 06/19/2024 11:43 AM RESIDENTIAL SALES ASSOCIATE [facility] RBC Count 2.55(L) 3.80 - 5.20 10e6/uL 06/19/2024 11:43 AM RESIDENTIAL SALES ASSOCIATE [facility] Hemoglobin 8.1(L) 11.7 - 15.7 g/dL 06/19/2024 11:43 AM RESIDENTIAL SALES ASSOCIATE [facility] Hematocrit 24.0(L) 35.0 - 47.0 % 06/19/2024 11:43 AM RESIDENTIAL SALES ASSOCIATE [facility] MCV 94 78 - 100 fL 06/19/2024 11:43 AM RESIDENTIAL SALES ASSOCIATE [facility] MCH 31.8 26.5 - 33.0 pg 06/19/2024 11:43 AM RESIDENTIAL SALES ASSOCIATE [facility] MCHC 33.8 31.5 - 36.5 g/dL 06/19/2024 11:43 AM RESIDENTIAL SALES ASSOCIATE [facility] RDW 18.4(H) 10.0 - 15.0 % 06/19/2024 11:43 AM RESIDENTIAL SALES ASSOCIATE [facility] Platelet Count 471(H) 150 - 450 10e3/uL 06/19/2024 11:43 AM RESIDENTIAL SALES ASSOCIATE [facility] % Neutrophils 62 % 06/19/2024 11:43 AM RESIDENTIAL SALES ASSOCIATE [facility] % Lymphocytes 28 % 06/19/2024 11:43 AM RESIDENTIAL SALES ASSOCIATE [facility] % Monocytes 6 % 06/19/2024 11:43 AM RESIDENTIAL SALES ASSOCIATE [facility] % Eosinophils 3 % 06/19/2024 11:43 AM RESIDENTIAL SALES ASSOCIATE [facility] % Basophils 1 % 06/19/2024 11:43 AM RESIDENTIAL SALES ASSOCIATE [facility] % Immature Granulocytes 1 % 06/19/2024 11:43 AM RESIDENTIAL SALES ASSOCIATE [facility] NRBCs per 100 WBC 4(H) <1 /100 025 11:43 AM RESIDENTIAL SALES ASSOCIATE [facility] Absolute Neutrophils 6.1 1.6 - 8.3 10e3/uL 06/19/2024 11:43 AM RESIDENTIAL SALES ASSOCIATE [facility] Absolute Lymphocytes 2.7 0.8 - 5.3 10e3/uL 06/19/2024 11:43 AM RESIDENTIAL SALES ASSOCIATE [facility] Absolute Monocytes 0.6 0.0 - 1.3 10e3/uL 06/19/2024 11:43 AM RESIDENTIAL SALES ASSOCIATE [facility] Absolute Eosinophils 0.3 0.0 - 0.7 10e3/uL 06/19/2024 11:43 AM RESIDENTIAL SALES ASSOCIATE [facility] Absolute Basophils 0.1 0.0 - 0.2 10e3/uL 06/19/2024 11:43 AM RESIDENTIAL SALES ASSOCIATE [facility] Absolute Immature Granulocytes 0.1 <=0.4 10e3/uL 06/19/2024 11:43 AM RESIDENTIAL SALES ASSOCIATE [facility] Absolute NRBCs 0.4 10e3/uL 06/19/2024 11:43 AM RESIDENTIAL SALES ASSOCIATE [facility] Blood CENTRAL VENOUS CATHETER / Unknown VAD(CVC, PICC) / Unknown 06/19/2024 9:30 AM RESIDENTIAL SALES ASSOCIATE 06/19/2024 9:42 AM RESIDENTIAL SALES ASSOCIATE Rl Elias MD LAB - BLOOD ORDER SYD Final Result [facility] [place] [facility] [address] [facility], [address] [place] [address] * (ABNORMAL) Reticulocyte count (06/19/2024 9:30 AM RESIDENTIAL SALES ASSOCIATE) Pathologist [facility] % Reticulocyte 9.2(H) 0.5 - 2.0 % 06/19/2024 9:48 AM RESIDENTIAL SALES ASSOCIATE [facility] Absolute Reticulocyte 0.234(H) 0.025 - 0.095 10e6/uL 06/19/2024 9:48 AM RESIDENTIAL SALES ASSOCIATE [facility] Blood CENTRAL VENOUS CATHETER / Unknown VAD(CVC, PICC) / Unknown 06/19/2024 9:30 AM RESIDENTIAL SALES ASSOCIATE 06/19/2024 9:42 AM RESIDENTIAL SALES ASSOCIATE Rl Elias MD LAB - BLOOD ORDER SYD Final Result [facility] [place] [facility] [address] [facility], [address] [place] [address], [facility] * (ABNORMAL) Comprehensive metabolic panel (06/19/2024 9:30 AM RESIDENTIAL SALES ASSOCIATE) Sodium 135 135 - 145 mmol/L 06/19/2024 10:13 AM RESIDENTIAL SALES ASSOCIATE [facility] Potassium 4.4 3.4 - 5.3 mmol/L 06/19/2024 10:13 AM RESIDENTIAL SALES ASSOCIATE [facility] Carbon Dioxide (CO2) 21(L) 22 - 29 mmol/L 06/19/2024 10:13 AM RESIDENTIAL SALES ASSOCIATE [facility] Anion Gap 9 7 - 15 mmol/L 06/19/2024 10:13 AM RESIDENTIAL SALES ASSOCIATE [facility] Urea Nitrogen 12.3 6.0 - 20.0 mg/dL 06/19/2024 10:13 AM RESIDENTIAL SALES ASSOCIATE [facility] Creatinine 0.68 0.51 - 0.95 mg/dL 06/19/2024 10:13 AM RESIDENTIAL SALES ASSOCIATE [facility] GFR Estimate >90 >60 mL/min/1.7 3m2 06/19/2024 10:13 AM RESIDENTIAL SALES ASSOCIATE [facility] Comment:eGFR calculated 2020 CKD-EPI equation. Calcium 8.9 8.8 - 10.4 mg/dL 06/19/2024 10:13 AM RESIDENTIAL SALES ASSOCIATE [facility] Chloride 105 98 - 107 mmol/L 06/19/2024 10:13 AM RESIDENTIAL SALES ASSOCIATE [facility] Glucose 100(H) 70 - 99 mg/dL 06/19/2024 10:13 AM RESIDENTIAL SALES ASSOCIATE [facility] Alkaline Phosphatase 94 40 - 150 U/L 06/19/2024 10:13 AM RESIDENTIAL SALES ASSOCIATE [facility] AST 54(H) 0 - 45 U/L 06/19/2024 10:13 AM RESIDENTIAL SALES ASSOCIATE [facility] ALT 31 0 - 50 U/L 06/19/2024 10:13 AM RESIDENTIAL SALES ASSOCIATE [facility] Protein Total 7.1 6.4 - 8.3 g/dL 06/19/2024 10:13 AM RESIDENTIAL SALES ASSOCIATE [facility] Albumin 3.9 3.5 - 5.2 g/dL 06/19/2024 10:13 AM RESIDENTIAL SALES ASSOCIATE [facility] Bilirubin Total 1.5(H) <=1.2 mg/dL 06/19/2024 10:13 AM RESIDENTIAL SALES ASSOCIATE [facility] Blood CENTRAL VENOUS CATHETER / Unknown VAD(CVC, PICC) / Unknown 06/19/2024 9:30 AM RESIDENTIAL SALES ASSOCIATE 06/19/2024 9:41 AM RESIDENTIAL SALES ASSOCIATE Rl Elias MD LAB - BLOOD ORDER SYD Final Result LABORATORY [facility] [place] [facility] [address] [facility], [address] * (ABNORMAL) Lactate Dehydrogenase (06/19/2024 9:30 AM RESIDENTIAL SALES ASSOCIATE) Lactate Dehydrogenase 507(H) 0 - 250 U/L 06/19/2024 10:13 AM RESIDENTIAL SALES ASSOCIATE [facility]ORY Blood CENTRAL VENOUS CATHETER / Unknown VAD(CVC, PICC) / Unknown 06/19/2024 9:30 AM RESIDENTIAL SALES ASSOCIATE 06/19/2024 9:41 AM RESIDENTIAL SALES ASSOCIATE Rl Elias MD LAB - BLOOD ORDER SYD Final Result [facility]ATORY [facility] [place] [facility] [address] [facility], [address] * (ABNORMAL) Platelet count (06/19/2024 12:17 AM RESIDENTIAL SALES ASSOCIATE) Platelet Count 467(H) 150 - 450 10e3/uL 06/19/2024 12:44 AM RESIDENTIAL SALES ASSOCIATE LAB[facility]ATORY Blood BLOOD SPECIMEN / Unknown Venipuncture / Unknown 06/19/2024 12:17 AM RESIDENTIAL SALES ASSOCIATE 06/19/2024 12:26 AM RESIDENTIAL SALES ASSOCIATE Laquita Kelley MD LAB - BLOOD ORDERABLES Final Re sult LABORATORY [facility] [place] [facility] [address] [facility], [address] [phone] * Creatinine (06/19/2024 12:17 AM RESIDENTIAL SALES ASSOCIATE) Creatinine 0.72 0.51 - 0.95 mg/dL 06/19/2024 12:51 AM RESIDENTIAL SALES ASSOCIATE [facility] GFR Estimate >90 >60 mL/min/1.7 3m2 06/19/2024 12:51 AM RESIDENTIAL SALES ASSOCIATE [facility] Comment:eGFR calculated usin 2020 CKD-EPI equation. Blood BLOOD SPECIMEN / Unknown Venipuncture / Unknown 06/19/2024 12:17 AM RESIDENTIAL SALES ASSOCIATE 06/19/2024 12:26 AM RESIDENTIAL SALES ASSOCIATE Laquita Kelley MD LAB - BLOOD ORDERABLES Final Re sult [facility] [place] [facility] [address] [facility], [address] [place] [phone] * (ABNORMAL) Manual Differential (06/18/2024 8:24 AM RESIDENTIAL SALES ASSOCIATE) % Neutrophils 52 % 06/18/2024 9:35 AM RESIDENTIAL SALES ASSOCIATE [facility] % Lymphocytes 39 % 06/18/2024 9:35 AM RESIDENTIAL SALES ASSOCIATE [facility] % Monocytes 7 % 06/18/2024 9:35 AM RESIDENTIAL SALES ASSOCIATE [facility] % Eosinophils 3 % 06/18/2024 9:35 AM RESIDENTIAL SALES ASSOCIATE [facility] % Basophils 0 % 06/18/2024 9:35 AM RESIDENTIAL SALES ASSOCIATE [facility] NRBCs per 100 WBC 13(H) <=0 % 06/18/2024 9:35 AM RESIDENTIAL SALES ASSOCIATE [facility] Absolute Neutrophils 5.6 1.6 - 8.3 10e3/uL 06/18/2024 9:35 AM RESIDENTIAL SALES ASSOCIATE [facility] Absolute Lymphocytes 4.2 0.8 - 5.3 10e3/uL 06/18/2024 9:35 AM RESIDENTIAL SALES ASSOCIATE [facility] Absolute Monocytes 0.7 0.0 - 1.3 10e3/uL 06/18/2024 9:35 AM RESIDENTIAL SALES ASSOCIATE [facility] Absolute Eosinophils 0.3 0.0 - 0.7 10e3/uL 06/18/2024 9:35 AM RESIDENTIAL SALES ASSOCIATE [facility] Absolute Basophils 0.0 0.0 - 0.2 10e3/uL 06/18/2024 9:35 AM RESIDENTIAL SALES ASSOCIATE [facility] Absolute NRBCs 1.4(H) <=0.0 10e3/uL 025 9:35 AM RESIDENTIAL SALES ASSOCIATE [facility] RBC Morphology Confirmed RBC Indices 06/18/2024 9:35 AM RESIDENTIAL SALES ASSOCIATE [facility] Platelet Assessment Automated Count Confirmed. Platelet morphology is normal. Automated Count Confirmed. Platelet morphology is normal. 06/18/2024 9:35 AM RESIDENTIAL SALES ASSOCIATE [facility] RBC Fragments Slight(A) None Seen 06/18/2024 9:35 AM RESIDENTIAL SALES ASSOCIATE [facility] Polychromasia Slight(A) None Seen 06/18/2024 9:35 AM RESIDENTIAL SALES ASSOCIATE [facility] Sickle Cells Moderate(A) None Seen 06/18/2024 9:35 AM RESIDENTIAL SALES ASSOCIATE [facility] Blood BLOOD SPECIMEN / Unknown Venipuncture / Unknown 06/18/2024 8:24 AM RESIDENTIAL SALES ASSOCIATE 06/18/2024 8:32 AM RESIDENTIAL SALES ASSOCIATE us Rl Elias MD LAB - BLOOD ORDER SYD Final Result [facility] [place] [facility] [address] [facility], [address] [place] [phone] * (ABNORMAL) CBC with platelets and differential (06/18/2024 8:24 AM RESIDENTIAL SALES ASSOCIATE) WBC Count 10.8 4.0 - 11.0 10e3/uL 06/18/2024 9:24 AM RESIDENTIAL SALES ASSOCIATE [facility] RBC Count 2.51(L) 3.80 - 5.20 10e6/uL 06/18/2024 9:24 AM RESIDENTIAL SALES ASSOCIATE [facility] Hemoglobin 8.1(L) 11.7 - 15.7 g/dL 06/18/2024 9:24 AM RESIDENTIAL SALES ASSOCIATE [facility] Hematocrit 23.1(L) 35.0 - 47.0 % 06/18/2024 9:24 AM RESIDENTIAL SALES ASSOCIATE [facility] MCV 92 78 - 100 fL 06/18/2024 9:24 AM RESIDENTIAL SALES ASSOCIATE [facility] MCH 32.3 26.5 - 33.0 pg 06/18/2024 9:24 AM RESIDENTIAL SALES ASSOCIATE [facility] MCHC 35.1 31.5 - 36.5 g/dL 06/18/2024 9:24 AM RESIDENTIAL SALES ASSOCIATE [facility] RDW 18.7(H) 10.0 - 15.0 % 06/18/2024 9:24 AM RESIDENTIAL SALES ASSOCIATE [facility] Platelet Count 452(H) 150 - 450 10e3/uL 06/18/2024 9:24 AM RESIDENTIAL SALES ASSOCIATE [facility] Blood BLOOD SPECIMEN / Unknown Venipuncture / Unknown 06/18/2024 8:24 AM RESIDENTIAL SALES ASSOCIATE 06/18/2024 8:32 AM RESIDENTIAL SALES ASSOCIATE Rl Elias MD LAB - BLOOD ORDER SYD Final Result [facility] [place] [facility] [address] [facility], [address] * (ABNORMAL) Reticulocyte count (06/18/2024 8:24 AM RESIDENTIAL SALES ASSOCIATE) % Reticulocyte 10.0(H) 0.5 - 2.0 % 06/18/2024 8:38 AM RESIDENTIAL SALES ASSOCIATE [facility] Absolute Reticulocyte 0.250(H) 0.025 - 0.095 10e6/uL 06/18/2024 8:38 AM RESIDENTIAL SALES ASSOCIATE [facility] Blood BLOOD SPECIMEN / Unknown Venipuncture / Unknown 06/18/2024 8:24 AM RESIDENTIAL SALES ASSOCIATE 06/18/2024 8:32 AM RESIDENTIAL SALES ASSOCIATE Rl Elias MD LAB - BLOOD ORDER SYD Final Result [facility] [place] [facility] [address] [facility], [address] [id number] * (ABNORMAL) Comprehensive metabolic panel (06/18/2024 8:24 AM RESIDENTIAL SALES ASSOCIATE) Sodium 133(L) 135 - 145 mmol/L 06/18/2024 9:02 AM RESIDENTIAL SALES ASSOCIATE [facility] Potassium 4.3 3.4 - 5.3 mmol/L 06/18/2024 9:02 AM RESIDENTIAL SALES ASSOCIATE [facility] Carbon Dioxide (CO2) 21(L) 22 - 29 mmol/L 06/18/2024 9:02 AM RESIDENTIAL SALES ASSOCIATE [facility] Anion Gap 7 7 - 15 mmol/L 06/18/2024 9:02 AM RESIDENTIAL SALES ASSOCIATE [facility] Urea Nitrogen 9.2 6.0 - 20.0 mg/dL 06/18/2024 9:02 AM RESIDENTIAL SALES ASSOCIATE [facility] Creatinine 0.65 0.51 - 0.95 mg/dL 06/18/2024 9:02 AM RESIDENTIAL SALES ASSOCIATE [facility] GFR Estimate >90 >60 mL/min/1.7 3m2 06/18/2024 9:02 AM RESIDENTIAL SALES ASSOCIATE [facility] Comment:eGFR calculated 2020 CKD-EPI equation. Calcium 8.7(L) 8.8 - 10.4 mg/dL 06/18/2024 9:02 AM RESIDENTIAL SALES ASSOCIATE [facility] Chloride 105 98 - 107 mmol/L 06/18/2024 9:02 AM RESIDENTIAL SALES ASSOCIATE [facility] Glucose 92 70 - 99 mg/dL 06/18/2024 9:02 AM RESIDENTIAL SALES ASSOCIATE [facility] Alkaline Phosphatase 86 40 - 150 U/L 06/18/2024 9:02 AM RESIDENTIAL SALES ASSOCIATE [facility] AST 45 0 - 45 U/L 06/18/2024 9:02 AM RESIDENTIAL SALES ASSOCIATE [facility] ALT 27 0 - 50 U/L 06/18/2024 9:02 AM RESIDENTIAL SALES ASSOCIATE [facility] Protein Total 7.0 6.4 - 8.3 g/dL 06/18/2024 9:02 AM RESIDENTIAL SALES ASSOCIATE [facility] Albumin 3.9 3.5 - 5.2 g/dL 06/18/2024 9:02 AM RESIDENTIAL SALES ASSOCIATE [facility] Bilirubin Total 1.4(H) <=1.2 mg/dL 06/18/2024 9:02 AM RESIDENTIAL SALES ASSOCIATE [facility] Blood BLOOD SPECIMEN / Unknown Venipuncture / Unknown 06/18/2024 8:24 AM RESIDENTIAL SALES ASSOCIATE 06/18/2024 8:32 AM RESIDENTIAL SALES ASSOCIATE us Rl Elias MD LAB - BLOOD ORDER SYD Final Result [facility] [place] [facility] [address] [facility], [address] [place] [address] * (ABNORMAL) Lactate Dehydrogenase (06/18/2024 8:24 AM RESIDENTIAL SALES ASSOCIATE) Lactate Dehydrogenase 491(H) 0 - 250 U/L 06/18/2024 9:02 AM RESIDENTIAL SALES ASSOCIATE [facility] Blood BLOOD SPECIMEN / Unknown Venipuncture / Unknown 06/18/2024 8:24 AM RESIDENTIAL SALES ASSOCIATE 06/18/2024 8:32 AM RESIDENTIAL SALES ASSOCIATE Rl Elias MD LAB - BLOOD ORDER SYD Final Result [facility] [place] [facility] [address] [facility], [address] [place] [address] * Transfuse red blood cells (unit), Sickle Cell (Hgb S) Negative (06/17/2024 2:33 PM RESIDENTIAL SALES ASSOCIATE) Drake Nina MD BLOOD TRANSFUSION ORDERABLES Final Result * Transfuse red blood cells (unit), 1 Units, Sickle Cell (Hgb S) Negative (06/17/2024 2:33 PM RESIDENTIAL SALES ASSOCIATE) Drake Nina MD BLOOD TRANSFUSION ORDERABLES Final Result * (ABNORMAL) UA with Microscopic reflex to Culture (06/17/2024 1:11 PM RESIDENTIAL SALES ASSOCIATE) Color Urine Light Yellow Colorless, Straw, Light Yellow, Yellow 06/17/2024 1:48 PM RESIDENTIAL SALES ASSOCIATE [facility] Appearance Urine Clear Clear 06/17/19 25 1:48 PM RESIDENTIAL SALES ASSOCIATE [facility] Glucose Urine Negative Negative mg/dL 06/17/2024 1:48 PM RESIDENTIAL SALES ASSOCIATE [facility] Bilirubin Urine Negative Negative 1:48 PM RESIDENTIAL SALES ASSOCIATE [facility] Ketones Urine Negative Negative mg/dL 06/17/2024 1:48 PM RESIDENTIAL SALES ASSOCIATE [facility] Specific [place] Urine 1.009 1.003 - 1.035 06/17/2024 1:48 PM RESIDENTIAL SALES ASSOCIATE [facility] Blood Urine Trace(A) Negative 06/17/2024 1:48 PM RESIDENTIAL SALES ASSOCIATE [facility] pH Urine 6.5 5.0 - 7.0 06/17/2024 1:48 PM RESIDENTIAL SALES ASSOCIATE [facility] Protein Albumin Urine Negative Negative mg/dL 06/17/2024 1:48 PM RESIDENTIAL SALES ASSOCIATE [facility] Urobilinogen Urine Normal Normal, 2.0 mg/dL 06/17/2024 1:48 PM RESIDENTIAL SALES ASSOCIATE [facility] Nitrite Urine Negative Negative 06/17/2024 1:48 PM RESIDENTIAL SALES ASSOCIATE [facility] Leukocyte Esterase Urine Small(A) Negative 06/17/2024 1:48 PM RESIDENTIAL SALES ASSOCIATE [facility] RBC Urine <1 <=2 /HPF 06/17/2024 1:48 PM RESIDENTIAL SALES ASSOCIATE [facility] WBC Urine <1 <=5 /HPF 06/17/2024 1:48 PM RESIDENTIAL SALES ASSOCIATE [facility] Squamous Epithelials Urine 3(H) <=1 /HPF 06/17/2024 1:48 PM RESIDENTIAL SALES ASSOCIATE [facility] Urine URINE SPECIMEN OBTAINED BY CLEAN CATCH PROCEDURE / Unknown Non-blood Collection / Unknown 06/17/2024 1:11 PM RESIDENTIAL SALES ASSOCIATE 06/17/2024 1:38 PM RESIDENTIAL SALES ASSOCIATE Narrative [facility] - 06/17/2024 1:48 PM RESIDENTIAL SALES ASSOCIATE Urine Culture not indicated Rl Elias MD LAB - URINE ORDER SYD Final Result [facility] [place] [facility] [address] [facility], [address] [id number] * Prepare red blood cells (unit) (06/17/2024 9:12 AM RESIDENTIAL SALES ASSOCIATE) Blood Component Type Red Blood Cells [facility] Product Code [id number] [facility] Unit Status Transfused [facility] Unit Number [id number] [facility] B LOOD BANK CROSSMATCH COMPATIBLE [facility] CODING SYSTEM [id number] [facility] B[facility] OD BANK ISSUE DATE AND TIME [id number] [facility] UNIT ABO/RH A+ [facility] UNIT TYPE ISBT 6200 [facility] 06/17/2024 9:12 AM RESIDENTIAL SALES ASSOCIATE Drake Nina MD BLOOD BANK PRODUCT ORDERABLES Final Result Performing Organization Address City/[facility]/ZIP Co de Phone Number [facility] [address] [place] [id number] * (ABNORMAL) Transferrin (06/17/2024 6:16 AM RESIDENTIAL SALES ASSOCIATE) Pathologist [facility] Transferrin 100.0(L) 200.0 - 360.0 mg/dL 06/17/2024 9:36 AM RESIDENTIAL SALES ASSOCIATE [facility] Blood VENOUS LINE / Unknown IVAD (Port) / Unknown 06/17/2024 6:16 AM RESIDENTIAL SALES ASSOCIATE 06/17/2024 6:27 AM RESIDENTIAL SALES ASSOCIATE Drake Nina MD LAB - BLOOD ORDERABLES Final Result [facility] [place] [facility] [address] [facility], [address] * Iron and iron binding capacity (06/17/2024 6:16 AM RESIDENTIAL SALES ASSOCIATE) [facility] Iron 123 37 - 145 ug/dL 06/17/2024 10:02 AM RESIDENTIAL SALES ASSOCIATE [facility] Iron Binding Capacity 06/17/2024 10:02 AM RESIDENTIAL SALES ASSOCIATE [facility] Comment:Unable to calculate: UIBC or Iron value is outside detectable level. Iron Sat Index 06/17/2024 10:02 AM RESIDENTIAL SALES ASSOCIATE [facility] Comment:Unable to calculate: UIBC or Iron value is outside detectable level. Blood VENOUS LINE / Unknown IVAD (Port) / Unknown 06/17/2024 6:16 AM RESIDENTIAL SALES ASSOCIATE 06/17/2024 6:27 AM RESIDENTIAL SALES ASSOCIATE Drake Nina MD LAB - BLOOD ORDERABLES Final Result [facility] [place] [facility] [address] [facility], [address] [phone] * (ABNORMAL) CBC with platelets (06/17/2024 6:16 AM RESIDENTIAL SALES ASSOCIATE) Pathologist [facility] WBC Count 14.6(H) 4.0 - 11.0 10e3/uL 06/17/2024 6:38 AM RESIDENTIAL SALES ASSOCIATE [facility] RBC Count 1.97(L) 3.80 - 5.20 10e6/uL 06/17/2024 6:38 AM RESIDENTIAL SALES ASSOCIATE [facility] Hemoglobin 6.3(LL) 11.7 - 15.7 g/dL 06/17/2024 6:38 AM RESIDENTIAL SALES ASSOCIATE [facility] Hematocrit 17.9(L) 35.0 - 47.0 % 06/17/2024 6:38 AM RESIDENTIAL SALES ASSOCIATE [facility] MCV 91 78 - 100 fL 06/17/2024 6:38 AM RESIDENTIAL SALES ASSOCIATE [facility] MCH 32.0 26.5 - 33.0 pg 06/17/2024 6:38 AM RESIDENTIAL SALES ASSOCIATE [facility] MCHC 35.2 31.5 - 36.5 g/dL 06/17/2024 6:38 AM RESIDENTIAL SALES ASSOCIATE [facility] RDW 20.1(H) 10.0 - 15.0 % 06/17/2024 6:38 AM RESIDENTIAL SALES ASSOCIATE [facility] Platelet Count 468(H) 150 - 450 10e3/uL 06/17/2024 6:38 AM RESIDENTIAL SALES ASSOCIATE [facility] Blood VENOUS LINE / Unknown IVAD (Port) / Unknown 06/17/2024 6:16 AM RESIDENTIAL SALES ASSOCIATE 06/17/2024 6:27 AM RESIDENTIAL SALES ASSOCIATE us Laquita Kelley MD LAB - BLOOD ORDERABLES Final Re sult [facility] [place] [facility] [address] [facility], [address] [phone] * (ABNORMAL) Basic metabolic panel (06/17/2024 6:16 AM RESIDENTIAL SALES ASSOCIATE) Sodium 134(L) 135 - 145 mmol/L 06/17/2024 6:55 AM RESIDENTIAL SALES ASSOCIATE [facility] Potassium 4.6 3.4 - 5.3 mmol/L 06/17/2024 6:55 AM RESIDENTIAL SALES ASSOCIATE [facility] Chloride 105 98 - 107 mmol/L 06/17/2024 6:55 AM RESIDENTIAL SALES ASSOCIATE [facility] Carbon Dioxide (CO2) 20(L) 22 - 29 mmol/L 06/17/2024 6:55 AM RESIDENTIAL SALES ASSOCIATE [facility] Anion Gap 9 7 - 15 mmol/L 06/17/2024 6:55 AM RESIDENTIAL SALES ASSOCIATE [facility] Urea Nitrogen 16.1 6.0 - 20.0 mg/dL 06/17/2024 6:55 AM RESIDENTIAL SALES ASSOCIATE [facility] Creatinine 0.90 0.51 - 0.95 mg/dL 06/17/2024 6:55 AM RESIDENTIAL SALES ASSOCIATE [facility] GFR Estimate 88 >60 mL/min/1.7 3m2 06/17/2024 6:55 AM RESIDENTIAL SALES ASSOCIATE [facility] Comment:eGFR calculated usin 2020 CKD-EPI equation. Calcium 8.4(L) 8.8 - 10.4 mg/dL 06/17/2024 6:55 AM RESIDENTIAL SALES ASSOCIATE [facility] Glucose 95 70 - 99 mg/dL 06/17/2024 6:55 AM RESIDENTIAL SALES ASSOCIATE [facility] Blood VENOUS LINE / Unknown IVAD (Port) / Unknown 06/17/2024 6:16 AM RESIDENTIAL SALES ASSOCIATE 06/17/2024 6:27 AM RESIDENTIAL SALES ASSOCIATE Laquita Kelley MD LAB - BLOOD ORDERABLES Final Re sult [facility] [place] [facility] [address] [facility], [address] [place] [address] * Troponin T, High Sensitivity (06/16/2024 9:33 PM RESIDENTIAL SALES ASSOCIATE) Pathologist [facility] Troponin T, High Sensitivity 8 <=14 ng/L 06/16/2024 10:13 PM RESIDENTIAL SALES ASSOCIATE [facility] Comment: Either a High Sensitivity [...] IVAD (Port) / Unknown 06/16/2024 9:33 PM RESIDENTIAL SALES ASSOCIATE 06/16/2024 9:44 PM RESIDENTIAL SALES ASSOCIATE us Varghesegiulia Schofield MD LAB - BLOOD ORDERABLE S Final Result [facility] [place] [facility] [address] [facility] [address], [address] [phone] * Chest XR, PA & LAT (06/16/2024 6:09 PM RESIDENTIAL SALES ASSOCIATE) Anatomical Region Laterality Modality Chest Digital Radiogra phy 06/16/2024 6:09 PM RESIDENTIAL SALES ASSOCIATE Impressions 06/16/2024 6:13 PM RESIDENTIAL SALES ASSOCIATE IMPRESSION: Left chest port catheter in stable position. Stable position of right central venous catheter. No airspace opacity, pleural effusion or pneumothorax. Narrative 06/16/2024 6:13 PM RESIDENTIAL SALES ASSOCIATE EXAM: XR CHEST 2 VIEWS LOCATION: [facility] DATE: 06/16/2024 INDICATION: chest pain COMPARISON: 06/12/2024 Procedure Note Richar Haines MD - 06/16/2024 EXAM: XR CHEST 2 VIEWS LOCATION: [facility] DATE: 06/16/2024 INDICATION: chest pain COMPARISON: 06/12/2024 IMPRESSION: Left chest port catheter in stable position. Stable positionof right central venous catheter. No airspace opacity, pleural effusion orpneumothorax. us Abimael Schofield MD IMG DIAGNOSTIC IMAGIN G ORDERABLES Final Result * RBC and Platelet Morphology (06/16/2024 5:37 PM RESIDENTIAL SALES ASSOCIATE) RBC Morphology Confirmed RBC Indices 06/16/2024 7:40 PM RESIDENTIAL SALES ASSOCIATE [facility] Platelet Assessment Automated Count Confirmed. Platelet morphology is normal. Automated Count Confirmed. Platelet morphology is normal. 06/16/2024 7:40 PM RESIDENTIAL SALES ASSOCIATE [facility] Blood BLOOD SPECIMEN / Unknown Venipuncture / Unknown 06/16/2024 5:37 PM RESIDENTIAL SALES ASSOCIATE 06/16/2024 5:46 PM RESIDENTIAL SALES ASSOCIATE Varghesegiulia Schofield MD LAB - BLOOD ORDERABLE S Final Result [facility] [place] [facility] [address] [facility], [address] [place] [address] * Adult Type and Screen (06/16/2024 5:37 PM RESIDENTIAL SALES ASSOCIATE) Pathologist [facility] ABO/RH(D) A POS 06/16/2024 5:08 PM RESIDENTIAL SALES ASSOCIATE [facility] Antibody Screen Negative Negative 06/16/2024 5:08 PM RESIDENTIAL SALES ASSOCIATE [facility] Comment:Current antibody scr een is negative. Patient has a history of antibody(ies). A delay in compatible red blood cells may occur. SPECIMEN EXPIRATION DATE [id number] 06/16/2024 5:08 PM RESIDENTIAL SALES ASSOCIATE [facility] Blood BLOOD SPECIMEN / Unknown Venipuncture / Unknown 06/16/2024 5:37 PM RESIDENTIAL SALES ASSOCIATE 06/16/2024 5:46 PM RESIDENTIAL SALES ASSOCIATE us Varghesegiulia Schofield MD LAB - BLOOD BANK TEST ORDER Final Result [facility] BLO[facility] BANK [address] [place] [address] * (ABNORMAL) CBC with platelets and differential (06/16/2024 5:37 PM RESIDENTIAL SALES ASSOCIATE) WBC Count 21.0(H) 4.0 - 11.0 10e3/uL 06/16/2024 7:41 PM RESIDENTIAL SALES ASSOCIATE [facility] RBC Count 2.34(L) 3.80 - 5.20 10e6/uL 06/16/2024 7:41 PM RESIDENTIAL SALES ASSOCIATE [facility] Hemoglobin 7.4(L) 11.7 - 15.7 g/dL 06/16/2024 7:41 PM RESIDENTIAL SALES ASSOCIATE [facility] Hematocrit 21.7(L) 35.0 - 47.0 % 06/16/2024 7:41 PM RESIDENTIAL SALES ASSOCIATE [facility] MCV 93 78 - 100 fL 06/16/2024 7:41 PM RESIDENTIAL SALES ASSOCIATE [facility] MCH 31.6 26.5 - 33.0 pg 06/16/2024 7:41 PM RESIDENTIAL SALES ASSOCIATE [facility] MCHC 34.1 31.5 - 36.5 g/dL 06/16/2024 7:41 PM RESIDENTIAL SALES ASSOCIATE [facility] RDW 19.3(H) 10.0 - 15.0 % 06/16/2024 7:41 PM RESIDENTIAL SALES ASSOCIATE [facility] Platelet Count 551(H) 150 - 450 10e3/uL 06/16/2024 7:41 PM RESIDENTIAL SALES ASSOCIATE [facility] % Neutrophils 69 % 06/16/2024 7:41 PM RESIDENTIAL SALES ASSOCIATE [facility] % Lymphocytes 20 % 06/16/2024 7:41 PM RESIDENTIAL SALES ASSOCIATE [facility] % Monocytes 9 % 06/16/2024 7:41 PM RESIDENTIAL SALES ASSOCIATE [facility] % Eosinophils 0 % 06/16/2024 7:41 PM RESIDENTIAL SALES ASSOCIATE [facility] % Basophils 1 % 06/16/2024 7:41 PM RESIDENTIAL SALES ASSOCIATE [facility] % Immature Granulocytes 1 % 06/16/2024 7:41 PM RESIDENTIAL SALES ASSOCIATE [facility] NRBCs per 100 WBC 1(H) <1 /100 025 7:41 PM RESIDENTIAL SALES ASSOCIATE [facility] Absolute Neutrophils 14.5(H) 1.6 - 8.3 10e3/uL 06/16/2024 7:41 PM RESIDENTIAL SALES ASSOCIATE [facility] Absolute Lymphocytes 4.2 0.8 - 5.3 10e3/uL 06/16/2024 7:41 PM RESIDENTIAL SALES ASSOCIATE [facility] Absolute Monocytes 2.0(H) 0.0 - 1.3 10e3/uL 06/16/2024 7:41 PM RESIDENTIAL SALES ASSOCIATE [facility] Absolute Eosinophils 0.0 0.0 - 0.7 10e3/uL 06/16/2024 7:41 PM RESIDENTIAL SALES ASSOCIATE [facility] Absolute Basophils 0.2 0.0 - 0.2 10e3/uL 06/16/2024 7:41 PM RESIDENTIAL SALES ASSOCIATE [facility] Absolute Immature Granulocytes 0.1 <=0.4 10e3/uL 06/16/2024 7:41 PM RESIDENTIAL SALES ASSOCIATE [facility] Absolute NRBCs 0.3 10e3/uL 06/16/2024 7:41 PM RESIDENTIAL SALES ASSOCIATE [facility] Blood BLOOD SPECIMEN / Unknown Venipuncture / Unknown 06/16/2024 5:37 PM RESIDENTIAL SALES ASSOCIATE 06/16/2024 5:46 PM RESIDENTIAL SALES ASSOCIATE us Varghesegiulia Schofield MD LAB - BLOOD ORDERABLE S Final Result [facility] [place] [facility] [address] [facility], [address] [phone] * (ABNORMAL) Prolactin (06/16/2024 5:37 PM RESIDENTIAL SALES ASSOCIATE) [facility] Prolactin 55(H) 5 - 23 ng/mL 06/16/2024 6:24 PM RESIDENTIAL SALES ASSOCIATE [facility] Blood BLOOD SPECIMEN / Unknown Venipuncture / Unknown 06/16/2024 5:37 PM RESIDENTIAL SALES ASSOCIATE 06/16/2024 5:46 PM RESIDENTIAL SALES ASSOCIATE us Varghesegiulia Schofield MD LAB - BLOOD ORDERABLE S Final Result Performing Organization Address City/[facility]/ZIP Co de Phone Number [facility] Lab [address] [facility], [address] [place] [phone] * Blood Culture Peripheral Blood (06/16/2024 5:37 PM RESIDENTIAL SALES ASSOCIATE) [facility] Culture No Growth 06/21/2024 6:47 PM RESIDENTIAL SALES ASSOCIATE [facility] Blood BLOOD SPECIMEN / Unknown Venipuncture / Unknown 06/16/2024 5:37 PM RESIDENTIAL SALES ASSOCIATE 06/16/2024 5:47 PM RESIDENTIAL SALES ASSOCIATE us Varghesegiulia Schofield MD LAB - MICRO GENERAL O RDERABLES Final Result [facility] Inf. Diseases Diag. Lab [address] [facility], [address] [place] [address] * Troponin T, High Sensitivity (06/16/2024 5:37 PM RESIDENTIAL SALES ASSOCIATE) [facility] Troponin T, High Sensitivity 6 <=14 ng/L 06/16/2024 6:24 PM RESIDENTIAL SALES ASSOCIATE [facility] Comment: Either a High Sensitivity [...] Unknown Venipuncture / Unknown 06/16/2024 5:37 PM RESIDENTIAL SALES ASSOCIATE 06/16/2024 5:46 PM RESIDENTIAL SALES ASSOCIATE us Varghese Cipriano Schofield MD LAB - BLOOD ORDERABLE S Final Result [facility] [place] [facility] [address] [facility], [address] [place] [phone] * (ABNORMAL) Comprehensive metabolic panel (06/16/2024 5:37 PM RESIDENTIAL SALES ASSOCIATE) Sodium 135 135 - 145 mmol/L 06/16/2024 6:24 PM RESIDENTIAL SALES ASSOCIATE [facility] Potassium 4.2 3.4 - 5.3 mmol/L 06/16/2024 6:24 PM RESIDENTIAL SALES ASSOCIATE [facility] Carbon Dioxide (CO2) 18(L) 22 - 29 mmol/L 06/16/2024 6:24 PM RESIDENTIAL SALES ASSOCIATE [facility] Anion Gap 14 7 - 15 mmol/L 06/16/2024 6:24 PM RESIDENTIAL SALES ASSOCIATE [facility] Urea Nitrogen 17.3 6.0 - 20.0 mg/dL 06/16/2024 6:24 PM RESIDENTIAL SALES ASSOCIATE [facility] Creatinine 0.92 0.51 - 0.95 mg/dL 06/16/2024 6:24 PM RESIDENTIAL SALES ASSOCIATE [facility] GFR Estimate 85 >60 mL/min/1.7 3m2 06/16/2024 6:24 PM RESIDENTIAL SALES ASSOCIATE [facility] Comment:eGFR calculated usin 2020 CKD-EPI equation. Calcium 9.5 8.8 - 10.4 mg/dL 06/16/2024 6:24 PM RESIDENTIAL SALES ASSOCIATE [facility] Chloride 103 98 - 107 mmol/L 06/16/2024 6:24 PM RESIDENTIAL SALES ASSOCIATE [facility] Glucose 122(H) 70 - 99 mg/dL 06/16/2024 6:24 PM RESIDENTIAL SALES ASSOCIATE [facility] Alkaline Phosphatase 105 40 - 150 U/L 06/16/2024 6:24 PM RESIDENTIAL SALES ASSOCIATE [facility] AST 49(H) 0 - 45 U/L 06/16/2024 6:24 PM RESIDENTIAL SALES ASSOCIATE [facility] ALT 32 0 - 50 U/L 06/16/2024 6:24 PM RESIDENTIAL SALES ASSOCIATE [facility] Protein Total 8.6(H) 6.4 - 8.3 g/dL 06/16/2024 6:24 PM RESIDENTIAL SALES ASSOCIATE [facility] Albumin 4.6 3.5 - 5.2 g/dL 06/16/2024 6:24 PM RESIDENTIAL SALES ASSOCIATE [facility] Bilirubin Total 2.0(H) <=1.2 mg/dL 06/16/2024 6:24 PM RESIDENTIAL SALES ASSOCIATE [facility] Blood BLOOD SPECIMEN / Unknown Venipuncture / Unknown 06/16/2024 5:37 PM RESIDENTIAL SALES ASSOCIATE 06/16/2024 5:46 PM RESIDENTIAL SALES ASSOCIATE us Varghesegiulia Schofield MD LAB - BLOOD ORDERABLE S Final Result [facility] Core Lab [address] [facility], [address] [phone] * EKG 12 lead (06/16/2024 4:55 PM RESIDENTIAL SALES ASSOCIATE) Systolic Blood Pressure mmHg RADIOLOGY RESULTS Diastolic Blood Pressure mmHg RADIOLOGY RESULTS Ventricular Rate 122 BPM RAD IOLOGY RESULTS Atrial Rate 122 BPM RADIOLOG Y RESULTS TX Interval 128 ms RADIOLOG Y RESULTS QRS Duration 74 ms RADIOLO GY RESULTS QT 314 ms RADIOLOGY RESULTS QTc 447 ms RADIOLOGY RESULTS P Baldwin 63 degrees RADIOLOGY RESULTS R AXIS 83 degrees RADIOLOGY RESULTS T Baldwin 29 degrees RADIOLOGY RESULTS Interpretation ECG Sinus tachycardia Otherwise normal ECG Unconfirmed report - interpretation of this ECG is computer generated - see medical record for final interpretation Confirmed by - EMERGENCY ROOM, PHYSICIAN ([id number]), editor at large KARLA WILLIAMSON ([id number]) on 06/17/2024 6:56:59 AM RADIOLOGY RESULTS 06/16/2024 4:55 PM RESIDENTIAL SALES ASSOCIATE 06/17/2024 6:56 AM RESIDENTIAL SALES ASSOCIATE us Abimael Schofield MD ECG ORDERABLES Edite [...] days, Indications: pneumoniaIndications:pneumonia $Given 06/18/2024 8:40 PM RESIDENTIAL SALES ASSOCIATE 200 mg $Given 06/18/2024 12:05 PM RESIDENTIAL SALES ASSOCIATE 200 mg $Given 06/17/2024 9:25 PM RESIDENTIAL SALES ASSOCIATE 200 mg diclofenac (VOLTAREN) 1 % topical gel 2 g 2 g, Topical, 4 TIMES DAILY, First dose on 06/17/24 at 1400, Apply to areas of pain. Use supplied dosing card to measure dose. diphenhydrAMINE (BENADRYL) capsule 25 mg 25 mg, Oral, EVERY 6 HOURS PRN, itching, Starting on Wed06/16/24 at 6 $Given 06/19/2024 12:46 PM RESIDENTIAL SALES ASSOCIATE 25 mg diphenhydrAMINE (BENADRYL) injection 25 mg 25 mg, Intravenous, EVERY 6 HOURS PRN, itching, Starting on Wed06/16/24 at 1956 $Given 06/20/2024 8:36 AM RESIDENTIAL SALES ASSOCIATE 25 mg $Given 06/20/2024 2:08 AM RESIDENTIAL SALES ASSOCIATE 25 mg $Given 06/19/2024 8:21 PM RESIDENTIAL SALES ASSOCIATE 25 mg enoxaparin ANTICOAGULANT (LOVENOX) injection 40 mg 40 mg, Subcutaneous, EVERY 24 HOURS, First dose on Wed06/16/24 at 2100, Contact provider if platelet count drops by 50% or more after enoxaparin initiation OR if platelet count falls below 50 x 10e3/uL $Given 06/19/2024 8:29 PM RESIDENTIAL SALES ASSOCIATE 40 mg $Given 06/18/2024 8:01 PM RESIDENTIAL SALES ASSOCIATE 40 mg $Given 06/17/2024 9:32 PM RESIDENTIAL SALES ASSOCIATE 40 mg FLUoxetine (PROzac) capsule 10 mg 10 mg, Oral, DAILY, First dose on Wed06/17/24 at 0800 $Given 06/20/2024 7:54 AM RESIDENTIAL SALES ASSOCIATE 10 mg $Given 06/19/2024 8:54 AM RESIDENTIAL SALES ASSOCIATE 10 mg $Given 06/18/2024 9:54 AM RESIDENTIAL SALES ASSOCIATE 10 mg folic acid (FOLVITE) tablet 1 mg 1 mg, Oral, DAILY, First dose on Wed06/17/24 at 0800 $Given 06/20/2024 7:51 AM RESIDENTIAL SALES ASSOCIATE 1 mg $Given 06/19/2024 8:54 AM RESIDENTIAL SALES ASSOCIATE 1 mg $Given 06/18/2024 8:09 AM RESIDENTIAL SALES ASSOCIATE 1 mg heparin lock flush 10 unit/mL [...] each port lumen $Given 06/20/2024 10:55 AM RESIDENTIAL SALES ASSOCIATE 5 mLs hydromorphone (DILAUDID) injection 2 mg 2 mg, Intravenous, EVERY 1 HOUR PRN, moderate pain, Starting on Wed06/16/24 at 1708, For 3 doses $Given 06/16/2024 8:20 PM RESIDENTIAL SALES ASSOCIATE 2 mg $Given 06/16/2024 5:42 PM RESIDENTIAL SALES ASSOCIATE 2 mg hydromorphone (DILAUDID) injection 2 mg 2 mg, Intravenous, EVERY 3 HOURS, First dose on Wed06/16/24 at 2100, May use concomitant with non-opioid analgesics. $Given 06/16/2024 9:59 PM RESIDENTIAL SALES ASSOCIATE 2 mg hydromorphone (DILAUDID) injection 2 mg 2 mg, Intravenous, EVERY 2 HOURS, First dose (after last modification) on Wed06/17/24 at 0000, May use concomitant with non-opioid analgesics. $Given 06/20/2024 9:53 AM RESIDENTIAL SALES ASSOCIATE 2 mg $Given 06/20/2024 7:49 AM RESIDENTIAL SALES ASSOCIATE 2 mg $Given 06/20/2024 5:51 AM RESIDENTIAL SALES ASSOCIATE 2 mg hydroxyurea (HYDREA) capsule 1,000 mg 1,000 mg, Oral, 2 TIMES DAILY, First dose on Wed06/16/24 at 2100, Indications: Sickle cell anemia, Do not crush May require hepatic and/or renal dose or frequency adjustments. See reference link for guidelines.Indications:Sickle cell anemia $Given 06/20/2024 7:51 AM RESIDENTIAL SALES ASSOCIATE 1,000 mg $Given 06/19/2024 8:13 PM RESIDENTIAL SALES ASSOCIATE 1,000 mg $Given 06/19/2024 8:55 AM RESIDENTIAL SALES ASSOCIATE 1,000 mg lactated ringers infusion at 75 mL/hr, Intravenous, CONTINUOUS, Starting on Wed06/18/24 at 0845, Until Wed06/20/24 at 0815 Rate/Dose Verify 06/20/2024 8:00 AM RESIDENTIAL SALES ASSOCIATE 75 mL/hr $New Bag 06/19/2024 10:38 PM RESIDENTIAL SALES ASSOCIATE 75 mL/hr Rate/Dose Verify 06/19/2024 8:29 PM RESIDENTIAL SALES ASSOCIATE 75 mL/h r Lidocaine (LIDOCARE) 4 % [...] Wed06/16/24 at 1958 $Given 06/20/2024 2:08 AM RESIDENTIAL SALES ASSOCIATE 4 mg $Given 06/19/2024 8:15 PM RESIDENTIAL SALES ASSOCIATE 4 mg $Given 06/19/2024 12:46 PM RESIDENTIAL SALES ASSOCIATE 4 mg polyethylene glycol (MIRALAX) Packet 17 [...] each port lumen. $Given 06/20/2024 10:54 AM RESIDENTIAL SALES ASSOCIATE 10 mLs sodium chloride (PF) 0.9% PF flush 3 mL 3 mL, Intracatheter, EVERY 8 HOURS, First dose on Wed06/16/24 at 1710, to lock peripheral IV dormant line $Given 06/20/2024 12:24 AM RESIDENTIAL SALES ASSOCIATE 3 mLs $Given 06/18/2024 6:22 PM RESIDENTIAL SALES ASSOCIATE 3 mLs $Given 06/17/2024 7:34 AM RESIDENTIAL SALES ASSOCIATE 3 mLs sodium chloride (PF) 0.9% PF flush 3 mL 3 mL, Intracatheter, EVERY 1 MIN PRN, line flush, other, to ensure patency or to lock dormant line, Starting on Wed06/16/24 at 1706 sodium chloride (PF) 0.9% PF flush 3 mL 3 mL, Intracatheter, EVERY 8 HOURS, First dose on Wed06/16/24 at 2100, to lock peripheral IV dormant line $Given 06/20/2024 4:41 AM RESIDENTIAL SALES ASSOCIATE 3 mLs $Given 06/19/2024 12:56 PM RESIDENTIAL SALES ASSOCIATE 3 mLs $Given 06/18/2024 12:07 PM RESIDENTIAL SALES ASSOCIATE 3 mLs sodium chloride (PF) 0.9% PF flush 3 mL 3 mL, Intracatheter, EVERY 1 MIN PRN, line flush, other, to ensure patency or to lock dormant line, Starting on Wed06/16/24 at 2058 $Given 06/20/2024 5:5 2 AM RESIDENTIAL SALES ASSOCIATE 3 mLs $Given 06/20/2024 2:59 AM RESIDENTIAL SALES ASSOCIATE 3 mLs $Given 06/20/2024 2:07 AM RESIDENTIAL SALES ASSOCIATE 3 mLs sodium chloride 0.9 % infusion at 75 mL/hr, Intravenous, CONTINUOUS, Starting on Wed06/16/24 at 1710, Until Wed06/18/24 at 0843 Rate/Dose Verify 06/18/2024 8:07 AM RESIDENTIAL SALES ASSOCIATE 75 mL/hr $New Bag 06/17/2024 9:42 PM RESIDENTIAL SALES ASSOCIATE 75 mL/hr $New Bag 06/17/2024 4:05 PM RESIDENTIAL SALES ASSOCIATE 75 mL/hr sodium chloride 0.9% BOLUS 500 mL Intravenous, 500 mL, ONCE, at 500 mL/hr, Administer over 1 Hours, On Wed06/16/24 at 1710, For 1 dose $New Bag 06/16/2024 5:51 PM RESIDENTIAL SALES ASSOCIATE 500 mLs 500 mL/hr documented in this encounter Active and Recently Administered Medications Times are shown in RESIDENTIAL SALES ASSOCIATE. Scheduled Medication Order 06/18/2024 06/19/2024 06/20/2024 cefpodoxime [...] Shrestha, RN)[id number] ($New Bag - Provider: Sarai Shrestha [...] - Provider: Rene Morocho RN - Comment: greeting card writer used scheudled dose instead of PRN [...] stools. documented in this encounter Care Teams Contract Programmer Relationship Specialty Start Date End Date No Ref-Primary, Physician PCP - General 03/15/24 06/17/24 Veronica Joseph MD [address] [place] [address] PCP - General Family Medicine 06/18/24 Mor Ramsey Medical Student 04/03/24 Case Samuel MD [address] [place] [address], [address] [place] [address] Assigned Pediatric Specialist Provider 05/18/24 Juhi Benson, RN Specialty Unified Communications Architect Hematology & Oncology 05/29/24 documented as of this encounter
--- OUTSIDE RECORDS SUMMARY | 2024-07-28 21:38 | XMS_ITS | Encounter Summary ---
Author Organization [facility] Address [address] [place] [address]. [place] [address] Care Team Providers Care Ship/Rec/Doc Control Name Role Phone RoxyElvirac Unavailable Unavailable Case Samuel MD Unavailable [phone] Juhi Benson RN Unavailable Unavailable Veronica Joseph MD Primary Care Provider [phone] Reason for Visit * Reason Comments Sickle Cell Pain Crisis Encounter Details Date Type Department Care Team ([facility] st Contact Info) Description 07/16/2024 8:33 PM CDT - 07/17/2024 12:58 AM CDT Emergency [facility] Emergency Department [address] [place] [phone] Polly Naylor MD [address] [place] [address] Sickle cell disease with crisis (H); Chest [...] on file Legal Sex Female 8:25 AM SAMPLE SEWER Gender Identity Not on file Sexual Orientation [...] 05/01/2024 naloxone (NARCAN) 4 MG/0.1ML nasal spray Wheeler 1 spray (4 mg) into one nostril [...] 07/16/2024 8:23 PM CDT ED Provider Note [facility] History Chief [...] ABD: nondistended, soft, nontender, negative Mason, negative Hampton point tenderness, nonperitonitic Back: No midline back [...] chest pain Rhythm: normal sinus Rate: normal Sweeny: normal Ectopy: none Conduction: normal ST Segments/ T Waves: No ST-T wave changes Q Waves: none Comparison to prior: Unchanged Clinical Impression: normal EKG Results for orders placed or performed during the hospital encounter of 07/16/24 XR Chest 2 Views Status: None Narrative EXAM: CHEST 2 VIEWS LOCATION: [facility] DATE: 07/16/2024 INDICATION: Chest pain. COMPARISON: 07/10/2024. [...] Rate 96 BPM Atrial Rate 96 BPM HI Interval 140 ms QRS Duration 76 ms QT 346 ms QTc 437 ms P Sweeny 65 degrees R AXIS 67 degrees T Sweeny 24 degrees Interpretation ECG Sinus rhythm Normal ECG CBC with Platelets & Differential Status: Abnormal Narrative The following orders were created for panel order CBC with Platelets & Differential. Procedure Abnormality Status --------- ------ CBC with platelets and ...[[id number]] Abnormal Final result RBC and Platelet Morpho...[[id number]] Please view results for these tests on [...] Chest pain, unspecified type Polly Naylor MD [facility] EMERGENCY DEPARTMENT 07/16/2024 Polly Naylor MD 07/17/24 0019 * Oriana Marquis RN - 07/16/2024 8:15 PM CDT Ambulatory to triage. Came in due to sickle cell crisis. documented in this encounter Plan of Treatment Upcoming Encounters Date Type Department Care Team (Late st Contact Info) Description 08/07/2024 7:15 AM CDT Lab [facility] [address] [phone] Case Samuel MD [address] [place] [address], [address] [address] 08/08/2024 8:00 AM CDT Appointment [facility] Advanced Treatment [address] [phone] Case Samuel MD [address] [place] [address], ROOM [address] [address] 10/30/2024 11:30 AM CDT Lab [facility] [address] [phone] Case Samuel MD [address] [place] [address], [address] [address] 10/30/2024 12:00 PM CDT Oncology Visit [facility] [address] [phone] Case Samuel MD [address] [place] [address], [address] [id number] documented as of this encounter Goals Goal [...] BLOOD ORDERABLES Final Res ult [facility] [address], [address] [phone] * D dimer quantitative (07/16/2024 9:57 PM CDT) [facility] D-Dimer Quantitative 0.41 0.00 - 0.50 ug/mL [...] BLOOD ORDERABLES Final Res ult [facility] [address], [address] [phone] * Troponin T, High Sensitivity (07/16/2024 9:57 PM CDT) [facility] Troponin T, High Sensitivity <6 <=14 ng/L [...] ORDERABLES Final Res ult Performing Organization Address City/[facility]/ZIP Co de Phone Number LABORATORY [facility] [address], [address] * (ABNORMAL) INR (07/16/2024 9:57 PM CDT) [facility] INR 1.37(H) 0.85 - 1.15 07/16/2024 10:31 PM CDT [facility] LAB[facility]AT[facility] Blood BLOOD SPECIMEN / Unknown Venipuncture / Unknown 07/16/2024 9:57 PM CDT 07/16/2024 10:14 PM CDT us Polly Naylor MD LAB - BLOOD ORDERABLES Final Res ult [facility]ATORY [facility] [address], [address] * (ABNORMAL) Comprehensive metabolic panel (07/16/2024 9:57 PM CDT) Pathologist [facility] Sodium 140 135 - 145 mmol/L 07/16/2024 [...] ORDERABLES Final Res ult Performing Organization Address City/[facility] Co de Phone Number [facility] LAB[facility]AT[facility] [address], [address] [phone] * (ABNORMAL) Reticulocyte count (07/16/2024 9:57 PM CDT) % Reticulocyte 5.7(H) 0.5 - 2.0 % 07/16/2024 10:23 PM CDT [facility] Absolute Reticulocyte 0.181(H) 0.025 - 0.095 10e6/uL 07/16/2024 10:23 PM CDT [facility] Blood BLOOD SPECIMEN / Unknown Venipuncture / Unknown 07/16/2024 9:57 PM CDT 07/16/2024 10:14 PM CDT Polly Naylor MD LAB - BLOOD ORDERABLES Final Res ult Performing Organization Address [facility] Phone Number LABORATORY [facility] [address], [address] [phone] * EKG 12-lead, tracing only (07/16/2024 9:18 PM CDT) Pathologist [facility] Systolic Blood Pressure mmHg RADIOLOGY RESULTS Diastolic Blood Pressure mmHg RADIOLOGY RESULTS Ventricular Rate 96 BPM RAD IOLOGY RESULTS Atrial Rate 96 BPM RADIOLOG Y RESULTS HI Interval 140 ms RADIOLOG Y RESULTS QRS Duration 76 ms RADIOLO GY RESULTS QT 346 ms RADIOLOGY RESULTS QTc 437 ms RADIOLOGY RESULTS P Sweeny 65 degrees RADIOLOGY RESULTS R AXIS 67 degrees RADIOLOGY RESULTS T Sweeny 24 degrees RADIOLOGY RESULTS Interpretation ECG Sinus rhythm Normal ECG Unconfirmed report - interpretation of this ECG is computer generated - see medical record for final interpretation Confirmed by - EMERGENCY ROOM, PHYSICIAN ([id number]), supervising editor trailer NEGRA ASTORGA ([id number]) on 07/17/2024 6:57:43 AM RADIOLOGY RESULTS 07/16/2024 [...] PM CDT EXAM: CHEST 2 VIEWS LOCATION: [facility] DATE: 07/16/2024 INDICATION: Chest pain. COMPARISON: 07/10/2024. FINDINGS: A few curvilinear opacities in the lateral aspect of the mid right lung were present previously and likely represent scarring. The lungs are otherwise clear. Normal size cardiac silhouette. Bilateral subclavian central venous catheters are again noted. Procedure Note Rob Shukla MD - 07/16/2024 EXAM: CHEST 2 VIEWS LOCATION: [facility] DATE: 07/16/2024 INDICATION: Chest pain. COMPARISON: 07/10/2024. [...] SOFIA) documented in this encounter Care Teams Ship/Rec/Doc Control Relationship Specialty Start Date End Date Veronica Joseph MD [address] [place] [address] PCP - General Family Medicine 06/18/24 Mor Ramsey Medical Student 04/03/24 Case Samuel MD [address] [place] [address], [address] [place] [address] Assigned Pediatric Specialist Provider 05/18/24 Juhi Bneson, RN Specialty Gas Derrick Operator Hematology & Oncology 05/29/24 documented as of this encounter
--- OUTSIDE RECORDS SUMMARY | 2024-07-28 21:38 | XMS_ITS | Encounter Summary ---
Author Organization [facility] Address [address] [place] [address]. 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 Gender Identity Not on file Sexual Orientation Not on file documented as of this encounter Plan of Treatment Upcoming Encounters Date Type Department Care Team (Late st Contact Info) Description 08/07/2024 7:15 AM CDT Lab [facility] [address] [phone] Case Samuel MD [address] [place] [address], ROOM [address] [address] 08/08/2024 8:00 AM CDT Appointment [facility] Advanced Treatment [address] [phone] Case Samuel MD [address] [place] [address], ROOM [address] [address] 10/30/2024 11:30 AM CDT Lab [facility] [address] [phone] Case Samuel MD [address] [place] [address], ROOM [address] [address] 10/30/2024 12:00 PM CDT Oncology Visit [facility] [address] [phone] Case Samuel MD [address] [facility] 484, [address] [place] [address] documented as of this encounter Goals Goal [...] on filedocumented in this encounter Care Teams Medtronics Technician Relationship Specialty Start Date End Date Veronica Joseph MD [address] [place] [address] PCP - General Family Medicine 06/18/24 Mor Ramsey Medical Student 04/03/24 Case Samuel MD [address] [facility] 484, [address] [place] [address] Assigned Pediatric Specialist Provider 05/18/24 Juhi Benson, RN Specialty Chute Tapper Hematology & Oncology 05/29/24 documented as of this encounter
--- OUTSIDE RECORDS SUMMARY | 2024-07-28 21:38 | XMS_ITS | Encounter Summary ---
Author Organization [facility] Address [address] [place] [address]. 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 Gender Identity Not on file Sexual Orientation Not on file documented as of this encounter Plan of Treatment Upcoming Encounters Date Type Department Care Team (Late st Contact Info) Description 08/07/2024 7:15 AM CDT Lab [facility] [address] [phone] Case Samuel MD [address] [place] [address], RO[address] [address] 08/08/2024 8:00 AM CDT Appointment [facility] Advanced Treatment [address] [phone] Case Samuel MD [address] [place] [address], RO[address] [address] 10/30/2024 11:30 AM CDT Lab [facility] [address] [phone] Case Samuel MD [address] [place] [address], RO[address] [address] 10/30/2024 12:00 PM CDT Oncology Visit [facility] [address] [phone] Case Samuel MD [address] [facility] 484, [address] [place] [address] documented as of this encounter Goals Goal [...] on filedocumented in this encounter Care Teams Personnel Psychologist Relationship Specialty Start Date End Date Veronica Joseph MD [address] [place] [address] PCP - General Family Medicine 06/18/24 Mor Ramsey Medical Student 04/03/24 Case Samuel MD [address] [facility] 484, [address] [place] [address] Assigned Pediatric Specialist Provider 05/18/24 Juhi Benson, RN Specialty Assembler Rubber Footwear Hematology & Oncology 05/29/24 documented as of this encounter
--- OUTSIDE RECORDS SUMMARY | 2024-07-28 21:38 | XMS_ITS | Encounter Summary ---
Author Organization Elsa Address [address] [place] [address]. [place] [address] Care Team Providers Care Loom Technician Name Role Phone RoxyElvirac Unavailable Unavailable Case Samuel MD Unavailable [phone] Juhi Benson RN Unavailable Unavailable Veronica Joseph MD Primary Care Provider [phone] Reason for Visit * Reason Comments Sickle Cell Pain Crisis Pt reports pain in her back and b/l lower extremities. * Auth/Cert Specialty Diagnoses / Procedures Referred By Contac t Referred To Contact EMERGENCY MEDICINE Diagnoses Acute pulmonary embolism without acute cor pulmonale, unspecified pulmonary embolism type (H) Sickle cell pain crisis (H) [facility] Emergency Department [address] [place] [address] Phone: tel: Referral ID Status Reason Start Date Expiration Date Visits Re quested Visits Authorized [id number] 1 1 Encounter Details Date Type Department Care Team ([facility] Contact Info) Description 06/24/2024 9:28 AM NONPROFIT FUNDRAISER - 06/24/2024 1:05 PM NONPROFIT FUNDRAISER Emergency [facility] Emergency Department [address] [place] [phone] Richar Mahajan MD [facility] [place] [address] Sickle cell disease with crisis [...] on file Legal Sex Female 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 Gender Identity Not on file Sexual Orientation Not on file documented as of this encounter Last Filed Vital Signs Vital Sign Reading Time Taken Comments Blood Pressure 111/67 06/24/2024 11:56 AM NONPROFIT FUNDRAISER Pulse 101 06/24/2024 12:11 PM NONPROFIT FUNDRAISER Temperature 36.9 C (98.4 F) 06/24/2024 9:26 AM NONPROFIT FUNDRAISER Respiratory Rate 16 06/24/2024 9:26 AM NONPROFIT FUNDRAISER Oxygen Saturation 100% 06/24/2024 12:11 PM NONPROFIT FUNDRAISER Inhaled Oxygen Concentration - - Weight 52.2 kg (115 lb) 06/24/2024 9:26 AM NONPROFIT FUNDRAISER Height 154.9 cm (5' 1) 06/24/2024 9:26 AM NONPROFIT FUNDRAISER Body Mass Index 21.73 06/24/2024 9:26 AM NONPROFIT FUNDRAISER documented in this encounter Discharge Instructions * Discharge Instructions* Richar Mahajan MD - 06/24/2024 12:57 PM NONPROFIT FUNDRAISER Home. Continue home care. Follow up with [...] Negative Ketones Urine Negative Negative mg/dL Specific [place] Urine 1.009 1.003 - 1.035 Blood [...] Status --------- ------ CBC with platelets and d...[[id number]] Abnormal Final result Please view results for these tests on the individual orders. ROFIT FUNDRAISER * Attachments The following attachments cannot be [...] 05/01/2024 naloxone (NARCAN) 4 MG/0.1ML nasal spray Amonate 1 spray (4 mg) into one nostril [...] WDL WDL Cognitive/Neuro/Behavioral WDL Cognitive/Neuro/Behavioral WDL WDL ROFIT FUNDRAISER * Richar Mahajan MD - 06/24/2024 9:16 AM CST Images from the original note were not included. [facility] (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 [...] Course, Procedures, & Data Records reviewed in [facility] as noted refer to HPI also care [...] Negative Ketones Urine Negative Negative mg/dL Specific [place] Urine 1.009 1.003 - 1.035 Blood [...] Status --------- ------ CBC with platelets and d...[[id number]] Abnormal Final result Please view results for [...] Bilirubin Urine Negative Ketones Urine Negative Specific [place] Urine 1.009 Blood Urine Negative pH [...] Long, am serving as a trained medical staff physician to document services personally performed by Richar Mahajan MD based on the provider's statements to me on June 24, 2024. This document has been checked and approved by the attending provider. Mercedes Richar Mahajan MD, was physically present and have reviewed and verified the accuracy of thisnote documented by Thelma Haines, medical staff physician. Richar Mahajan MD [facility]PART[facility] 06/24/2024 This note was created at least in part by the use of [employer] voice dictation system. Inadvertent typographical errors may still exist. Richar Mahajan MD. Patient evaluated in the emergency department during the COVID-19 pandemic period. Careful attention to patients safety was addressed throughout the evaluation. Evaluation and treatment management was initiated with disposition made efficiently and appropriate as possible to minimize any risk of potential exposure to patient during this evaluation. Richar Mahajan MD 06/24/242108 ROFIT FUNDRAISER documented in this encounter Plan of Treatment Upcoming Encounters Date Type Department Care Team (Late st Contact Info) Description 08/07/2024 7:15 AM CDT Lab [facility] [address] [place] [phone] Case Samuel MD [address] [place] [address], [address] [place] [address] [phone] 08/08/2024 8:00 AM CDT Appointment [facility] [address] [phone] Case Samuel MD [address] [place] [address], ROOM [address] [address] 10/30/2024 11:30 AM CDT Lab [facility] [address] [phone] Case Samuel MD [address] [place] [address], ROOM [address] [address] 10/30/2024 12:00 PM CDT Oncology Visit [facility] [address] [place] [address] Csae Samuel MD [address] [place] [address], [address] [place] [address] documented as of this encounter Goals Goal [...] REFLEX TO CULTURE STAT 06/24/2024 10:15 AM NONPROFIT FUNDRAISER CBC WITH PLATELETS AND DIFFERENTIAL STAT 06/24/2024 10:11 AM NONPROFIT FUNDRAISER CBC WITH PLATELETS & DIFFERENTIAL STAT 06/24/2024 10:11 AM NONPROFIT FUNDRAISER RETICULOCYTE COUNT STAT 06/24/2024 10 :11 AM NONPROFIT FUNDRAISER INR STAT 06/24/2024 10:11 AM NONPROFIT FUNDRAISER PARTIAL THROMBOPLASTIN TIME STAT 06/24/2024 10:11 AM NONPROFIT FUNDRAISER MAGNESIUM STAT 06/24/2024 10:11 AM NONPROFIT FUNDRAISER HCG QUALITATIVE STAT 06/24/2024 10:11 AM NONPROFIT FUNDRAISER COMPREHENSIVE METABOLIC PANEL STAT 06/24/2024 10:11 AM NONPROFIT FUNDRAISER documented in this encounter Results * (ABNORMAL) UA with Microscopic reflex to Culture (06/24/2024 10:15 AM NONPROFIT FUNDRAISER) Color Urine Light Yellow Colorless, Straw, Light Yellow, Yellow 06/24/2024 10:25 AM NONPROFIT FUNDRAISER [facility] Appearance Urine Clear Clear 06/25/19 10:25 AM NONPROFIT FUNDRAISER [facility] Glucose Urine Negative Negative mg/dL 06/24/2024 10:25 AM NONPROFIT FUNDRAISER [facility] Bilirubin Urine Negative Negative 10:25 AM NONPROFIT FUNDRAISER [facility] Ketones Urine Negative Negative mg/dL 06/24/2024 10:25 AM NONPROFIT FUNDRAISER [facility] Specific [place] Urine 1.009 1.003 - 1.035 06/24/2024 10:25 AM NONPROFIT FUNDRAISER [facility] Blood Urine Negative Negative 06/24/2024 10:25 AM NONPROFIT FUNDRAISER [facility] pH Urine 7.5(H) 5.0 - 7.0 06/24/2024 10:25 AM NONPROFIT FUNDRAISER [facility] Protein Albumin Urine Negative Negative mg/dL 06/24/2024 10:25 AM NONPROFIT FUNDRAISER [facility] Urobilinogen Urine Normal Normal, 2.0 mg/dL 06/24/2024 10:25 AM NONPROFIT FUNDRAISER [facility] Nitrite Urine Negative Negative 06/24/2024 10:25 AM NONPROFIT FUNDRAISER [facility] Leukocyte Esterase Urine Negative Negative 06/24/2024 10:25 AM NONPROFIT FUNDRAISER [facility] RBC Urine <1 <=2 /HPF 06/24/2024 10:25 AM NONPROFIT FUNDRAISER [facility] WBC Urine <1 <=5 /HPF 06/24/2024 10:25 AM NONPROFIT FUNDRAISER [facility] Squamous Epithelials Urine 11(H) <=1 /HPF 06/24/2024 10:25 AM NONPROFIT FUNDRAISER [facility] Hyaline Casts Urine 1 <=2 /LPF 06/24/2024 10:25 AM NONPROFIT FUNDRAISER [facility] Urine MID-STREAM URINE SPECIMEN / Unknown Non-blood Collection / Unknown 06/24/2024 10:15 AM NONPROFIT FUNDRAISER 06/24/2024 10:20 AM NONPROFIT FUNDRAISER Narrative [facility] - 06/24/2024 10:25 AM NONPROFIT FUNDRAISER Urine Culture not indicated us Richar Mahajan MD LAB - URINE ORDERABLES Liss bola Result [facility] [address] [facility], [address] [place] [phone] * (ABNORMAL) CBC with platelets and differential (06/24/2024 10:11 AM NONPROFIT FUNDRAISER) WBC Count 7.8 4.0 - 11.0 10e3/uL 06/24/2024 10:28 AM NONPROFIT FUNDRAISER [facility] RBC Count 2.49(L) 3.80 - 5.20 10e6/uL 06/24/2024 10:28 AM NONPROFIT FUNDRAISER [facility] Hemoglobin 7.9(L) 11.7 - 15.7 g/dL 06/24/2024 10:28 AM NONPROFIT FUNDRAISER [facility] Hematocrit 24.8(L) 35.0 - 47.0 % 06/24/2024 10:28 AM NONPROFIT FUNDRAISER [facility] MCV 100 78 - 100 fL 06/24/2024 10:28 AM NONPROFIT FUNDRAISER [facility] MCH 31.7 26.5 - 33.0 pg 06/24/2024 10:28 AM NONPROFIT FUNDRAISER [facility] MCHC 31.9 31.5 - 36.5 g/dL 06/24/2024 10:28 AM NONPROFIT FUNDRAISER [facility] RDW 19.0(H) 10.0 - 15.0 % 06/24/2024 10:28 AM NONPROFIT FUNDRAISER [facility] Platelet Count 482(H) 150 - 450 10e3/uL 06/24/2024 10:28 AM NONPROFIT FUNDRAISER [facility] % Neutrophils 61 % 06/24/2024 10:28 AM NONPROFIT FUNDRAISER [facility] % Lymphocytes 26 % 06/24/2024 10:28 AM NONPROFIT FUNDRAISER [facility] % Monocytes 9 % 06/24/2024 10:28 AM NONPROFIT FUNDRAISER [facility] % Eosinophils 1 % 06/24/2024 10:28 AM NONPROFIT FUNDRAISER [facility] % Basophils 2 % 06/24/2024 10:28 AM NONPROFIT FUNDRAISER [facility] % Immature Granulocytes 1 % 06/24/2024 10:28 AM NONPROFIT FUNDRAISER [facility] NRBCs per 100 WBC 5(H) <1 /100 025 10:28 AM NONPROFIT FUNDRAISER [facility] Absolute Neutrophils 4.8 1.6 - 8.3 10e3/uL 06/24/2024 10:28 AM NONPROFIT FUNDRAISER [facility] Absolute Lymphocytes 2.1 0.8 - 5.3 10e3/uL 06/24/2024 10:28 AM NONPROFIT FUNDRAISER [facility] Absolute Monocytes 0.7 0.0 - 1.3 10e3/uL 06/24/2024 10:28 AM NONPROFIT FUNDRAISER [facility] Absolute Eosinophils 0.1 0.0 - 0.7 10e3/uL 06/24/2024 10:28 AM NONPROFIT FUNDRAISER [facility] Absolute Basophils 0.1 0.0 - 0.2 10e3/uL 06/24/2024 10:28 AM NONPROFIT FUNDRAISER [facility] Absolute Immature Granulocytes 0.1 <=0.4 10e3/uL 06/24/2024 10:28 AM NONPROFIT FUNDRAISER [facility] Absolute NRBCs 0.4 10e3/uL 06/24/2024 10:28 AM NONPROFIT FUNDRAISER [facility] Blood BLOOD SPECIMEN / Unknown Venipuncture / Unknown 06/24/2024 10:11 AM NONPROFIT FUNDRAISER 06/24/2024 10:22 AM NONPROFIT FUNDRAISER Richar Mahajan MD LAB - BLOOD ORDERABLES Liss l Result [facility] Lab [address] [place] [address], [address] [phone] * (ABNORMAL) Reticulocyte count (06/24/2024 10:11 AM NONPROFIT FUNDRAISER) Pathologist [facility] % Reticulocyte 11.2(H) 0.5 - 2.0 % 06/24/2024 10:28 AM NONPROFIT FUNDRAISER [facility] Absolute Reticulocyte 0.280(H) 0.025 - 0.095 10e6/uL 06/24/2024 10:28 AM NONPROFIT FUNDRAISER [facility] Blood BLOOD SPECIMEN / Unknown Venipuncture / Unknown 06/24/2024 10:11 AM NONPROFIT FUNDRAISER 06/24/2024 10:22 AM NONPROFIT FUNDRAISER Richar Mahajan MD LAB - BLOOD ORDERABLES Liss l Result [facility] [address] [facility], [address] * HCG qualitative Blood (06/24/2024 10:11 AM NONPROFIT FUNDRAISER) [facility] hCG Serum Qualitative Negative Negative JARET 06/24/2024 10:33 AM NONPROFIT FUNDRAISER [facility] Comment:This test is for scr eening purposes. Results should be interpreted along with the clinical picture. Confirmation testing is available if warranted by ordering [id number], HCG Quantitative . Blood BLOOD SPECIMEN / Unknown Venipuncture / Unknown 06/24/2024 10:11 AM NONPROFIT FUNDRAISER 06/24/2024 10:20 AM NONPROFIT FUNDRAISER Richar Mahajan MD LAB - BLOOD ORDERABLES Liss l Result Performing Organization Address City/[facility]/ZIP Co de Phone Number U [facility] Core Lab [address] [facility], [address] * Magnesium (06/24/2024 10:11 AM NONPROFIT FUNDRAISER) [facility] Magnesium 2.1 1.7 - 2.3 mg/dL 06/24/2024 10:51 AM NONPROFIT FUNDRAISER [facility] Blood BLOOD SPECIMEN / Unknown Venipuncture / Unknown 06/24/2024 10:11 AM NONPROFIT FUNDRAISER 06/24/2024 10:21 AM NONPROFIT FUNDRAISER Richar Mahajan MD LAB - BLOOD ORDERABLES Liss l Result [facility] [address] [facility], [address] * (ABNORMAL) Comprehensive metabolic panel (06/24/2024 10:11 AM NONPROFIT FUNDRAISER) [facility] Sodium 138 135 - 145 mmol/L 06/24/2024 10:51 AM NONPROFIT FUNDRAISER [facility] Potassium 4.3 3.4 - 5.3 mmol/L 06/24/2024 10:51 AM NONPROFIT FUNDRAISER [facility] Carbon Dioxide (CO2) 20(L) 22 - 29 mmol/L 06/24/2024 10:51 AM NONPROFIT FUNDRAISER [facility] Anion Gap 10 7 - 15 mmol/L 06/24/2024 10:51 AM NONPROFIT FUNDRAISER [facility] Urea Nitrogen 9.9 6.0 - 20.0 mg/dL 06/24/2024 10:51 AM NONPROFIT FUNDRAISER [facility] Creatinine 0.62 0.51 - 0.95 mg/dL 06/24/2024 10:51 AM NONPROFIT FUNDRAISER [facility] GFR Estimate >90 >60 mL/min/1.7 3m2 06/24/2024 10:51 AM NONPROFIT FUNDRAISER [facility] Comment:eGFR calculated 2020 CKD-EPI equation. Calcium 8.7(L) 8.8 - 10.4 mg/dL 06/24/2024 10:51 AM NONPROFIT FUNDRAISER [facility] Chloride 108(H) 98 - 107 mmol/L 06/24/2024 10:51 AM NONPROFIT FUNDRAISER [facility] Glucose 98 70 - 99 mg/dL 06/24/2024 10:51 AM NONPROFIT FUNDRAISER [facility] Alkaline Phosphatase 119 40 - 150 U/L 06/24/2024 10:51 AM NONPROFIT FUNDRAISER [facility] AST 57(H) 0 - 45 U/L 06/24/2024 10:51 AM NONPROFIT FUNDRAISER [facility] ALT 53(H) 0 - 50 U/L 06/24/2024 10:51 AM NONPROFIT FUNDRAISER [facility] Protein Total 7.4 6.4 - 8.3 g/dL 06/24/2024 10:51 AM NONPROFIT FUNDRAISER [facility] Albumin 4.0 3.5 - 5.2 g/dL 06/24/2024 10:51 AM NONPROFIT FUNDRAISER [facility] Bilirubin Total 1.1 <=1.2 mg/dL 06/24/2024 10:51 AM NONPROFIT FUNDRAISER [facility] Blood BLOOD SPECIMEN / Unknown Venipuncture / Unknown 06/24/2024 10:11 AM NONPROFIT FUNDRAISER 06/24/2024 10:21 AM NONPROFIT FUNDRAISER Richar Mahajan MD LAB - BLOOD ORDERABLES Liss plaza Result [facility] [address] [facility], [address] [place] [phone] * (ABNORMAL) INR (06/24/2024 10:11 AM NONPROFIT FUNDRAISER) INR 1.45(H) 0.85 - 1.15 06/24/2024 10:54 AM NONPROFIT FUNDRAISER [facility] Blood BLOOD SPECIMEN / Unknown Venipuncture / Unknown 06/24/2024 10:11 AM NONPROFIT FUNDRAISER 06/24/2024 10:21 AM NONPROFIT FUNDRAISER Richar Mahajan MD LAB - BLOOD ORDERABLES Liss l Result [facility] [address] [facility], [address] * Partial thromboplastin time (06/24/2024 10:11 AM NONPROFIT FUNDRAISER) aPTT 32 22 - 38 Seconds 06/24/2024 10:55 AM NONPROFIT FUNDRAISER [facility] Blood BLOOD SPECIMEN / Unknown Venipuncture / Unknown 06/24/2024 10:11 AM NONPROFIT FUNDRAISER 06/24/2024 10:21 AM NONPROFIT FUNDRAISER Richar Mahajan MD LAB - BLOOD ORDERABLES Liss l Result Performing Organization Address City/[facility]/ZIP Co de Phone Number LABORATORY [facility] Core Lab [address] [facility], [address] documented in this encounter Visit Diagnoses Diagnosis Sickle cell disease with crisis (H) Hb-SS disease with crisis documented in this encounter Administered Medications Inactive Administered Medications - up to 3 most recent administrations Medication Order MAR Action Action Date Dose Rate Site diphenhydrAMINE (BENADRYL) capsule 50 mg 50 mg, Oral, ONCE, On 06/24/24 at 0935, For 1 dose $Given 06/24/2024 10:20 AM NONPROFIT FUNDRAISER 50 mg hydromorphone (DILAUDID) injection 2 mg 2 mg, Intravenous, EVERY 1 HOUR PRN, severe pain, Starting on 06/24/24 at 0933, For 3 doses $Given 06/24/2024 12:41 PM NONPROFIT FUNDRAISER 2 mg $Given 06/24/2024 11:21 AM NONPROFIT FUNDRAISER 2 mg $Given 06/24/2024 10:19 AM NONPROFIT FUNDRAISER 2 mg lactated ringers BOLUS 1,000 mL Intravenous, 1,000 mL, ONCE, at 500 mL/hr, Administer over 2 Hours, On 06/24/24 at 0935, For 1 dose $New Bag 06/24/2024 10:20 AM NONPROFIT FUNDRAISER 1,000 mLs 500 mL/hr lidocaine (LMX4) cream [...] For 1 dose $Given 06/24/2024 10:19 AM NONPROFIT FUNDRAISER 8 mg sodium chloride (PF) 0.9% PF flush 3 mL 3 mL, Intracatheter, EVERY 8 HOURS, First dose on 06/24/24 at 0935, to lock peripheral IV dormant line $Given 06/24/2024 10:14 AM NONPROFIT FUNDRAISER 3 mLs sodium chloride (PF) 0.9% PF flush 3 mL 3 mL, Intracatheter, EVERY 1 MIN PRN, line flush, other, to ensure patency or to lock dormant line, Starting on 06/24/24 at 0930 documented in this encounter Active and Recently Administered Medications Times are shown in NONPROFIT FUNDRAISER. Scheduled Medication Order 06/22/2024 06/23/2024 06/24/2024 diphenhydrAMINE [...] 0930 documented in this encounter Care Teams Loom Technician Relationship Specialty Start Date End Date Veronica Joseph MD [address] [place] [address] PCP - General Family Medicine 06/18/24 Mor Ramsey Medical Student 04/03/24 Case Samuel MD [address] [place] [address] 484, [address] [place] [address] Assigned Pediatric Specialist Provider 05/18/24 Juhi Benson, SOFIA Specialty Deputy Sheriff [employer] Handler Hematology & Oncology 05/29/24 documented as of this encounter
--- OUTSIDE RECORDS SUMMARY | 2024-07-28 21:38 | XMS_ITS | Clinical Summary ---
Author Organization [facility] Address [address] [place] [address] Care Team Providers Care Workers Compensation Claims Analyst Name Role Phone Roxy Mor Unavailable Unavailable Case Samuel MD Unavailable [phone] Juhi Benson RN Unavailable Unavailable Veronica Joseph MD Primary Care Provider [phone] Allergies Active Allergy Reactions Criticality Noted Date [...] Active naloxone (NARCAN) 4 MG/0.1ML nasal spray Kaltag 1 spray (4 mg) into one nostril [...] [place] Sickle Cell Disease History Primary Manager Hi/THERAPEUTIC CASE MANAGER/PA: Lizzie Genotype: SS Acute Pain Crisis [...] CDT - 07/27/2024 11:16 PM CDT Emergency [facility] Emergency Department [address] [place] [phone] Payal Arriaga, Sickle cell pain crisis (H); Chest pain, unspecified type; Acute bilateral thoracic back pain Discharge Disposition: Home or Self Care 07/26/2024 8:38 PM CDT - 07/27/2024 1:05 AM CDT Emergency [facility] Emergency Department [address] [place] [phone] Abdelrahman Goddard MD Gingras, Alexa M, DO Sickle cell disease with crisis (H) Discharge Disposition: Home or Self Care 07/26/2024 Travel 07/25/2024 7:48 PM CDT - 07/25/2024 11:26 PM CDT Emergency [facility] Emergency Department [address] [place] [address] Emanuel Chester MD Sickle cell pain crisis (H) Discharge Disposition: Home or Self Care 07/25/2024 Travel 07/20/2024 10:32 AM CDT - 07/20/2024 1:57 PM CDT Emergency [facility] Emergency Department [address] [place] [address] Payal Arriaga DO Sickle cell pain crisis (H); Bilateral leg pain; Acute bilateral back pain, unspecified back location Discharge Disposition: Home or Self Care 07/20/2024 Travel 07/19/2024 2:47 AM CDT - 07/19/2024 6:48 AM CDT Emergency [facility] Emergency Department [address] [place] [address] Keshia Schofield MD Sickle cell pain crisis (H) Discharge Disposition: Home or Self Care 07/19/2024 Travel 07/18/2024 11:21 AM CDT - 07/18/2024 2:47 PM CDT Emergency [facility] Emergency Department [address] [place] [address] Dave Mcfarlane MD Sickle cell pain crisis (H) Discharge Disposition: Home or Self Care 07/18/2024 Travel 07/18/2024 Refill [facility] [address] [phone] Tatiana Cohen CNP Refill Request 07/17/2024 2:30 PM CDT Infusion Therapy Visit [facility] [address] [phone] Tatiana Cohen CNP Sickle cell pain crisis (H) (Primary Dx) 07/17/2024 1:45 PM CDT Oncology Visit [facility] [address] [phone] Tatiana Cohen CNP Sickle cell pain crisis (H) (Primary Dx); Severe episode of recurrent major depressive disorder, without psychotic features (H) 07/16/2024 8:33 PM CDT - 07/17/2024 12:58 AM CDT Emergency [facility] Emergency Department [address] [place] [address] Polly Naylor MD Sickle cell disease with crisis (H); Chest pain, unspecified type Discharge Disposition: Home or Self Care 07/16/2024 Travel 07/13/2024 10:02 PM CDT - 07/14/2024 1:55 AM CDT Emergency [facility] Emergency Department [address] [place] [address] Jayden Adhikari MD Sickle cell pain crisis (H) Discharge Disposition: Home or Self Care 07/13/2024 Travel 07/11/2024 3:03 PM CDT - 07/11/2024 7:35 PM CDT Emergency [facility] Emergency Department [address] [place] [address] Ana Troy MD Sickle cell pain crisis (H) Discharge Disposition: Home or Self Care 07/11/2024 Travel 07/10/2024 7:00 PM CDT - 07/10/2024 11:30 PM CDT Emergency [facility] Emergency Department [address] [place] [address] Alex Morton MD Sickle cell pain crisis (H); Chest pain Discharge Disposition: Home or Self Care 07/10/2024 Travel 07/10/2024 Refill [facility] [address] [phone] Case Samuel MD Refill Request 07/09/2024 2:34 AM CDT - 07/09/2024 5:41 AM CDT Emergency [facility] Emergency Department [address] [place] [address] Shauna Calle DO Sickle cell pain crisis (H) Discharge Disposition: Home or Self Care 07/09/2024 Travel 07/07/2024 9:13 PM CDT - 07/08/2024 12:23 AM CDT Emergency [facility] Emergency Room [facility] [place] [address] Octavio Garcia MD Abney-Lidahl, Deborah, MD Sickle cell pain crisis (H) Discharge Disposition: Home or Self Care 07/07/2024 Travel 07/06/2024 9:00 AM CDT Infusion Therapy Visit [facility] [address] [place] [phone] Case Samuel MD Sickle cell pain crisis (H) (Primary Dx) 07/06/2024 7:51 AM CDT - 07/06/2024 11:59 PM CDT Hospital Encounter [facility] [address] [phone] Case Samuel MD Discharge Disposition: Home or Self Care 07/05/2024 6:57 PM CDT - 07/05/2024 10:36 PM CDT Emergency [facility] Emergency Department [address] [place] [address] Vasiliy Lyle MD Sickle cell disease with crisis (H) Discharge Disposition: Home or Self Care 07/05/2024 Travel 07/04/2024 4:28 PM CDT - 07/04/2024 8:27 PM CDT Emergency [facility] Emergency Department [address] [place] [address] Richar Mahajan MD Sickle cell pain crisis (H); 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) Discharge Disposition: Home or Self Care 07/04/2024 Travel 07/04/[address] [phone] Case Samuel MD Refill Request 07/02/2024 5:47 PM CDT - 07/02/2024 9:37 PM CDT Emergency [facility] Emergency Department [address] [place] [address] Vasiliy Lutz DO Sickle cell pain crisis (H) Discharge Disposition: Home or Self Care 07/02/2024 Travel 07/01/2024 6:18 PM HEAD PIECE ASSEMBLER - 07/01/2024 9:43 PM [facility] Emergency [facility] Emergency Department [address] [place] [address] Andres Tejada MD Sickle cell pain crisis (H) Discharge Disposition: Home or Self Care 07/01/2024 Travel 06/29/[address] [phone] Case Samuel MD Refill Request 06/26/2024 1:51 PM HEAD PIECE ASSEMBLER - 06/29/2024 11:11 AM [facility] Hospital Encounter [facility] Emergency Department [address] [place] [address] Jayden Adhikari MD Pal, Suman, MD Diehl, Matthew, MD Acute pulmonary embolism without acute cor pulmonale, unspecified pulmonary embolism type (H); Sickle cell pain crisis (H) Discharge Disposition: Home or Self Care 06/26/2024 Travel 06/25/2024 9:50 PM HEAD PIECE ASSEMBLER - 06/26/2024 1:11 AM [facility] Emergency [facility] Emergency Department [address] [place] [address] Polly Naylor MD Tschohl, Melissa Ann, MD Sickle cell disease with crisis (H); Chest pain, unspecified type Discharge Disposition: Home or Self Care 06/25/2024 Travel 06/24/2024 9:28 AM HEAD PIECE ASSEMBLER - 06/24/2024 1:05 PM [facility] Emergency [facility] Emergency Department [address] [place] [address] Richar Mhaajan MD Sickle cell disease with crisis (H) Discharge Disposition: Home or Self Care 06/24/2024 Travel 06/23/2024 6:03 PM HEAD PIECE ASSEMBLER - 06/23/2024 9:47 PM HEAD PIECE ASSEMBLER Emergency [facility] Emergency Department [address] [place] [address] Dayna Crane MD Sickle cell disease with crisis (H) Discharge Disposition: Home or Self Care 06/23/2024 Travel 06/22/2024 5:23 PM HEAD PIECE ASSEMBLER - 06/22/2024 10:02 PM HEAD PIECE ASSEMBLER Emergency [facility] Emergency Department [address] [place] [address] Lynne Varner MD Sickle cell anemia with crisis (H) Discharge Disposition: Home or Self Care 06/22/2024 Travel 06/16/2024 4:46 PM HEAD PIECE ASSEMBLER - 06/20/2024 11:00 AM HEAD PIECE ASSEMBLER Hospital Encounter [facility] 7C Med Surg [address] [place] [address] Abimael Schofield MD Pal, Suman, MD Duffy, Briar, MD Sickle cell pain crisis (H) Discharge Disposition: Home or Self Care 06/16/2024 Travel 06/15/2024 Refill [facility] [address] [address] Case Samuel MD Refill Request 06/12/2024 6:38 PM HEAD PIECE ASSEMBLER - 06/15/2024 10:48 AM HEAD PIECE ASSEMBLER Hospital Encounter [facility] Emergency Department [address] [place] [address] Abdelrahman Goddard MD Beacom, Evan, DO Duffy, Briar, MD 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); Acute chest pain; Sickle cell pain crisis (H); Pneumonia of right lower lobe due to infectious organism Discharge Disposition: Home or Self Care 06/12/2024 Travel 06/11/2024 9:02 PM HEAD PIECE ASSEMBLER - 06/12/2024 1:57 AM HEAD PIECE ASSEMBLER Emergency [facility] Emergency Room [facility] [place] [address] Iliana Weber MD Sickle cell pain crisis (H) Discharge Disposition: Home or Self Care 06/11/2024 Travel 06/09/2024 11:30 AM HEAD PIECE ASSEMBLER Infusion Therapy Visit [facility] [address] [place] [phone] Case Samuel MD Sickle cell pain crisis (H) (Primary Dx) 06/09/2024 Travel 06/07/2024 1:30 PM HEAD PIECE ASSEMBLER Infusion Therapy Visit [facility] [address] [phone] Case Samuel MD Fever (Primary Dx); Sickle cell pain crisis (H) 06/07/2024 10:00 AM HEAD PIECE ASSEMBLER - 06/07/2024 10:45 AM HEAD PIECE ASSEMBLER Emergency [facility] Emergency Room [address] [place] [phone] Bernabe Farley MD Chest pain, unspecified type; Fever, unspecified fever cause; Left against medical advice Discharge Disposition: Home or Self Care 06/07/2024 Travel 06/06/2024 9:41 AM HEAD PIECE ASSEMBLER - 06/06/2024 1:29 PM HEAD PIECE ASSEMBLER Emergency [facility] Emergency Room [address] [place] [phone] Marilia Summers MD Sickle cell pain crisis (H) Discharge Disposition: Home or Self Care 06/05/2024 11:41 AM HEAD PIECE ASSEMBLER - 06/05/2024 3:28 PM HEAD PIECE ASSEMBLER Emergency [facility] Emergency Room [address] [place] [phone] Stiven Madsen MD Palm, Steven J, MD Sickle cell pain crisis (H) Discharge Disposition: Home or Self Care 06/05/2024 Travel 06/05/2024 MyC Refill [facility] [address] [place] [phone] Case Samuel MD Refill Request 06/03/2024 3:22 PM HEAD PIECE ASSEMBLER - 06/03/2024 5:30 PM HEAD PIECE ASSEMBLER Emergency [facility] Emergency Room [address] [place] [phone] Jennifer Bell MD Sickle cell pain crisis (H) Discharge Disposition: Home or Self Care 06/03/2024 Travel 06/01/2024 11:41 PM HEAD PIECE ASSEMBLER - 06/02/2024 2:35 AM HEAD PIECE ASSEMBLER Emergency [facility] Emergency Room [address] [place] [phone] Noel Pinzon MD Sickle cell pain crisis (H) Discharge Disposition: Home or Self Care 06/01/2024 Travel 05/31/2024 9:56 PM HEAD PIECE ASSEMBLER - 06/01/2024 12:46 AM HEAD PIECE ASSEMBLER Emergency [facility] Emergency Room [address] [place] [phone] Carley Riggins MD Sickle cell pain crisis (H) Discharge Disposition: Home or Self Care 05/31/2024 Travel 05/30/2024 8:00 AM HEAD PIECE ASSEMBLER Infusion Therapy Visit [facility] [address] [phone] Case Samuel MD 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); History of transfusion; Sickle cell pain crisis (H) 05/29/2024 11:30 AM HEAD PIECE ASSEMBLER Oncology Visit [facility] [address] [place] [phone] Case Samuel MD Severe episode of recurrent major depressive disorder, 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); History of transfusion; Sickle cell pain crisis (H); 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) 05/29/2024 Orders Only [facility] [address] [place] [phone] Juhi Benson RN Sickle cell pain crisis (H) (Primary Dx); 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) 05/29/2024 Travel 05/28/2024 11:56 PM HEAD PIECE ASSEMBLER - 05/29/2024 3:54 AM HEAD PIECE ASSEMBLER Emergency [facility] Emergency Room [address] [place] [phone] Lenin Smith MD Sickle cell disease with crisis (H) Discharge Disposition: Home or Self Care 05/28/2024 Travel 05/27/2024 11:58 AM HEAD PIECE ASSEMBLER - 05/27/2024 6:07 PM [facility] Emergency [facility] Emergency Room [address] [place] [phone] Blas Mcclellan MD OhlMarly, Sickle cell disease with crisis (H) Discharge Disposition: Home or Self Care 05/27/2024 Travel 05/25/2024 10:53 AM HEAD PIECE ASSEMBLER - 05/25/2024 4:00 PM [facility] Hospital Encounter [facility] Interventional Radiology [address] [place] [phone] Jaswinder Cooper MD 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) Discharge Disposition: Home or Self Care 05/23/2024 9:03 PM HEAD PIECE ASSEMBLER - 05/23/2024 11:37 PM [facility] Emergency [facility] Emergency Room [address] [place] [phone] Marilia Summers MD Sickle cell pain crisis (H); Leukocytosis, unspecified type; Left-sided chest wall pain Discharge Disposition: Home or Self Care 05/23/2024 Travel 05/22/2024 3:27 PM HEAD PIECE ASSEMBLER - 05/22/2024 6:55 PM [facility] Emergency [facility] Emergency Room [address] [place] [phone] Bernabe Farley MD Sickle cell pain crisis (H) Discharge Disposition: Home or Self Care 05/22/2024 MyC Refill [facility] [address] [place] [phone] Case Samuel MD Refill Request 05/22/2024 Travel 05/22/2024 MyC Medical Advice [facility] Interventional Radiology [address] [place] [phone] Yadi Mahan RN 05/20/2024 7:30 AM HEAD PIECE ASSEMBLER - 05/20/2024 11:15 AM [facility] Emergency [facility] Emergency Room [address] [place] [phone] Stiven Madsen MD Sickle cell pain crisis (H) Discharge Disposition: Home or Self Care 05/20/2024 Travel 05/19/2024 2:10 AM HEAD PIECE ASSEMBLER - 05/19/2024 6:06 AM [facility] Emergency [facility] Emergency Room [address] [place] [phone] Marilia Summers MD Sickle cell disease with crisis (H) Discharge Disposition: Home or Self Care 05/19/2024 Travel 05/16/2024 9:41 PM HEAD PIECE ASSEMBLER - 05/17/2024 12:53 AM [facility] Emergency [facility] Emergency Room [address] [place] [phone] Guille Davis DO Sickle cell pain crisis (H) Discharge Disposition: Home or Self Care 05/16/2024 Travel 05/14/2024 10:07 PM HEAD PIECE ASSEMBLER - 05/15/2024 12:14 AM [facility] Emergency [facility] Emergency Room [address] [place] [phone] Marguerite Ponce PA-C Sickle cell pain crisis (H) Discharge Disposition: Home or Self Care 05/14/2024 Travel 05/13/2024 3:56 PM HEAD PIECE ASSEMBLER - 05/13/2024 7:56 PM [facility] Emergency [facility] Emergency Room [address] [place] [phone] Shaheen Unger MD Sickle cell pain crisis (H) Discharge Disposition: Home or Self Care 05/13/2024 Travel 05/08/2024 3:10 PM HEAD PIECE ASSEMBLER - 05/08/2024 7:54 PM [facility] Emergency [facility] Emergency Room [address] [place] [phone] Polly Alcaraz MD Sickle cell pain crisis (H) Discharge Disposition: Home or Self Care 05/08/2024 Travel 05/08/2024 MyC Refill [facility] [address] [phone] Case Samuel MD Refill Request 05/06/2024 6:34 PM HEAD PIECE ASSEMBLER - 05/06/2024 10:33 PM HEAD PIECE ASSEMBLER Emergency [facility] Emergency Room [facility] [place] [address] Noel Pinzon MD Sickle cell pain crisis (H) Discharge Disposition: Home or Self Care 05/06/2024 Travel 05/05/2024 11:10 AM HEAD PIECE ASSEMBLER - 05/05/2024 2:25 PM HEAD PIECE ASSEMBLER Emergency [facility] Emergency Room [address] [place] [phone] Star Gifford MD Sickle cell pain crisis (H) Discharge Disposition: Home or Self Care 05/05/2024 Travel 05/02/2024 8:23 AM HEAD PIECE ASSEMBLER - 05/02/2024 8:54 AM HEAD PIECE ASSEMBLER Emergency [facility] Emergency Department [address] [place] [phone] Andres Tejada MD Discharge Disposition: Left Without Being Seen 05/02/2024 Telephone [facility] [address] [place] [phone] No Ref-Primary, Physician Call to schedule (Ed follow up) 05/02/2024 Travel 05/01/2024 11:00 AM HEAD PIECE ASSEMBLER Oncology Visit [facility] [address] [phone] Case Samuel MD History of transfusion (Primary Dx); 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); Gallstones; Avascular necrosis of bone of left hip (H); 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, with sickle cell retinopathy, unspecified laterality, unspecified whether proliferative (H); Sickle cell pain crisis (H) 05/01/2024 Orders Only [facility] [address] [place] [address] Juhi Benson, RN Hb-SS disease [...] file Legal Sex Female 8:25 AM HEAD PIECE ASSEMBLER Gender Identity Not on file Sexual [...] CDT Lab [facility] [address] [phone] Case Samuel MD [address] [place] [address], [address] [phone] 08/08/2024 8:00 AM CDT Appointment [facility] [address] [phone] Case Samuel MD [address] [place] [address], [address] [place], [place] [phone] 10/30/2024 11:30 AM CDT Lab [facility] [address] [phone] Case Samuel MD [address] [place] [address], [address] [place] [address] 10/30/2024 12:00 PM CDT Oncology Visit [facility] [address] [place] [phone] Case Samuel MD [address] [facility] [address], [address] [place], [place] [phone] Health Maintenance Due Date Last Done Comments [...] medication remaining. Medical Devices Implanted Type Area Marketing Regional Consultant Device Identifier Shelf Expiration Date Model / Serial / Lot Bard 9.6 Powerflow Apheresis Iv Port-05/25/2024 Implanted:Qty: 1 on 05/25/2024 by Myron Michel MD Port Right: Chest Wall BARD 08/23/2024 [id number] / / [id number] Description:Right chest Wall Apheresis Port 9.6FR (Power) 6frt Smartport-05/25 Implanted:Qty: 1 on 05/25/2024 by Myron Michel MD Port Left: Chest Wall [employer] 09/23/2026 [id number] / / [id number] Description:6FR SL SmartPort (Power - 300psi max) [...] PLATELETS & DIFFERENTIAL STAT 07/01/2024 8:00 PM HEAD PIECE ASSEMBLER MANUAL DIFFERENTIAL STAT 07/01/2024 8 :00 PM HEAD PIECE ASSEMBLER CBC WITH PLATELETS AND DIFFERENTIAL STAT 07/01/2024 8:00 PM HEAD PIECE ASSEMBLER RETICULOCYTE COUNT STAT 07/01/2024 8: 00 PM HEAD PIECE ASSEMBLER COMPREHENSIVE METABOLIC PANEL STAT 07/01/2024 8:00 PM HEAD PIECE ASSEMBLER CBC WITH PLATELETS & DIFFERENTIAL STAT 06/29/2024 6:05 AM HEAD PIECE ASSEMBLER EXTRA PURPLE TOP TUBE STAT 06/29/2024 6:05 AM HEAD PIECE ASSEMBLER EXTRA TUBE STAT 06/29/2024 6:05 AM HEAD PIECE ASSEMBLER CBC WITH PLATELETS AND DIFFERENTIAL STAT 06/29/2024 6:05 AM HEAD PIECE ASSEMBLER COMPREHENSIVE METABOLIC PANEL STAT 06/29/2024 6:04 AM HEAD PIECE ASSEMBLER CBC WITH PLATELETS & DIFFERENTIAL STAT 06/28/2024 6:06 AM HEAD PIECE ASSEMBLER BILIRUBIN DIRECT Add-On 06/28/2024 6:06 AM HEAD PIECE ASSEMBLER RBC AND PLATELET MORPHOLOGY STAT 06/28/2024 6:06 AM HEAD PIECE ASSEMBLER CBC WITH PLATELETS AND DIFFERENTIAL STAT 06/28/2024 6:06 AM HEAD PIECE ASSEMBLER RETICULOCYTE COUNT STAT 06/28/2024 6: 06 AM HEAD PIECE ASSEMBLER LACTATE DEHYDROGENASE STAT 06/28/2024 6:06 AM HEAD PIECE ASSEMBLER COMPREHENSIVE METABOLIC PANEL STAT 06/28/2024 6:06 AM HEAD PIECE ASSEMBLER HEPARIN UNFRACTIONATED ANTI XA LEVEL STAT 06/28/2024 1:57 AM HEAD PIECE ASSEMBLER HEPARIN UNFRACTIONATED ANTI XA LEVEL STAT 06/27/2024 7:14 PM HEAD PIECE ASSEMBLER EXTRA GREEN TOP (LITHIUM HEPARIN) TUBE STAT 06/27/2024 5:55 PM HEAD PIECE ASSEMBLER EXTRA TUBE STAT 06/27/2024 5:55 PM HEAD PIECE ASSEMBLER ECHO COMPLETE Routine 06/27/2024 2:33 PM HEAD PIECE ASSEMBLER HEPARIN UNFRACTIONATED ANTI XA LEVEL STAT 06/27/2024 12:39 PM HEAD PIECE ASSEMBLER US LOWER EXTREMITY VENOUS DUPLEX BILATERAL STAT 06/27/2024 11:21 AM HEAD PIECE ASSEMBLER INFLUENZA A/B, RSV AND SARS-COV2 PCR STAT 06/27/2024 8:43 AM HEAD PIECE ASSEMBLER ROUTINE UA WITH MICROSCOPIC REFLEX TO CULTURE STAT 06/27/2024 8:12 AM HEAD PIECE ASSEMBLER ABO/RH TYPE AND SCREEN Add-On 5:57 AM HEAD PIECE ASSEMBLER CBC WITH PLATELETS & DIFFERENTIAL Add-On 06/27/2024 5:57 AM HEAD PIECE ASSEMBLER TYPE AND SCREEN, ADULT Routine 5:57 AM HEAD PIECE ASSEMBLER RBC AND PLATELET MORPHOLOGY STAT 06/27/2024 5:57 AM HEAD PIECE ASSEMBLER CBC WITH PLATELETS AND DIFFERENTIAL Add-On 06/27/2024 5:57 AM HEAD PIECE ASSEMBLER RETICULOCYTE COUNT Add-On 06/27/2024 5: 57 AM HEAD PIECE ASSEMBLER HEPATIC FUNCTION PANEL Add-On 5:57 AM HEAD PIECE ASSEMBLER CBC WITH PLATELETS STAT 06/27/2024 5: 57 AM HEAD PIECE ASSEMBLER BASIC METABOLIC PANEL STAT 06/27/2024 5:57 AM HEAD PIECE ASSEMBLER HEPARIN UNFRACTIONATED ANTI XA LEVEL STAT 06/27/2024 5:56 AM HEAD PIECE ASSEMBLER HEPARIN UNFRACTIONATED ANTI XA LEVEL STAT 06/26/2024 10:46 PM HEAD PIECE ASSEMBLER BLOOD CULTURE STAT 06/26/2024 6:46 PM HEAD PIECE ASSEMBLER BLOOD CULTURE STAT 06/26/2024 6:46 PM HEAD PIECE ASSEMBLER ERYTHROCYTE SEDIMENTATION RATE AUTO STAT 06/26/2024 6:46 PM HEAD PIECE ASSEMBLER EKG 12-LEAD, TRACING ONLY STAT 06/26/2024 5:19 PM [address]IECE ASSEMBLER CT CHEST PULMONARY EMBOLISM W CONTRAST STAT 06/26/2024 4:15 PM HEAD PIECE ASSEMBLER XR CHEST 2 VIEWS STAT 06/26/2024 3:13 PM HEAD PIECE ASSEMBLER ABO/RH TYPE AND SCREEN STAT 2:42 PM HEAD PIECE ASSEMBLER CBC WITH PLATELETS & DIFFERENTIAL STAT 06/26/2024 2:42 PM HEAD PIECE ASSEMBLER TYPE AND SCREEN, ADULT STAT 2:42 PM HEAD PIECE ASSEMBLER PROCALCITONIN STAT 06/26/2024 2:42 PM HEAD PIECE ASSEMBLER CRP INFLAMMATION Add-On 06/26/2024 2:42 PM HEAD PIECE ASSEMBLER CBC WITH PLATELETS AND DIFFERENTIAL STAT 06/26/2024 2:42 PM HEAD PIECE ASSEMBLER TROPONIN T, HIGH SENSITIVITY STAT 06/26/2024 2:42 PM HEAD PIECE ASSEMBLER D DIMER QUANTITATIVE STAT 06/26/2024 2:42 PM HEAD PIECE ASSEMBLER HCG QUALITATIVE STAT 06/26/2024 2:42 PM HEAD PIECE ASSEMBLER BASIC METABOLIC PANEL STAT 06/26/2024 2:42 PM HEAD PIECE ASSEMBLER XR CHEST 2 VIEWS STAT 06/25/2024 10:35 PM HEAD PIECE ASSEMBLER EKG 12-LEAD, TRACING ONLY STAT 06/25/2024 10:19 PM HEAD PIECE ASSEMBLER ROUTINE UA WITH MICROSCOPIC REFLEX TO CULTURE STAT 06/25/2024 10:16 PM HEAD PIECE ASSEMBLER CBC WITH PLATELETS & DIFFERENTIAL STAT 06/25/2024 10:15 PM HEAD PIECE ASSEMBLER CBC WITH PLATELETS AND DIFFERENTIAL STAT 06/25/2024 10:15 PM HEAD PIECE ASSEMBLER TROPONIN T, HIGH SENSITIVITY STAT 06/25/2024 10:15 PM HEAD PIECE ASSEMBLER BASIC METABOLIC PANEL STAT 06/25/2024 10:15 PM HEAD PIECE ASSEMBLER ROUTINE UA WITH MICROSCOPIC REFLEX TO CULTURE STAT 06/24/2024 10:15 AM HEAD PIECE ASSEMBLER CBC WITH PLATELETS & DIFFERENTIAL STAT 06/24/2024 10:11 AM HEAD PIECE ASSEMBLER CBC WITH PLATELETS AND DIFFERENTIAL STAT 06/24/2024 10:11 AM HEAD PIECE ASSEMBLER RETICULOCYTE COUNT STAT 06/24/2024 10:11 AM HEAD PIECE ASSEMBLER HCG QUALITATIVE STAT 06/24/2024 10:11 AM HEAD PIECE ASSEMBLER MAGNESIUM STAT 06/24/2024 10:11 AM HEAD PIECE ASSEMBLER COMPREHENSIVE METABOLIC PANEL STAT 06/24/2024 10:11 AM HEAD PIECE ASSEMBLER INR STAT 06/24/2024 10:11 AM HEAD PIECE ASSEMBLER PARTIAL THROMBOPLASTIN TIME STAT 06/24/2024 10:11 AM HEAD PIECE ASSEMBLER CBC WITH PLATELETS & DIFFERENTIAL STAT 06/23/2024 6:22 PM HEAD PIECE ASSEMBLER DIFFERENTIAL STAT 06/23/2024 6:22 PM HEAD PIECE ASSEMBLER CBC WITH PLATELETS AND DIFFERENTIAL STAT 06/23/2024 6:22 PM HEAD PIECE ASSEMBLER HCG QUALITATIVE STAT 06/23/2024 6:22 PM HEAD PIECE ASSEMBLER COMPREHENSIVE METABOLIC PANEL STAT 06/23/2024 6:22 PM HEAD PIECE ASSEMBLER CBC WITH PLATELETS & DIFFERENTIAL STAT 06/22/2024 7:10 PM HEAD PIECE ASSEMBLER CBC WITH PLATELETS AND DIFFERENTIAL STAT 06/22/2024 7:10 PM HEAD PIECE ASSEMBLER RETICULOCYTE COUNT STAT 06/22/2024 7: 10 PM HEAD PIECE ASSEMBLER HCG QUALITATIVE STAT 06/22/2024 7:10 PM HEAD PIECE ASSEMBLER COMPREHENSIVE METABOLIC PANEL STAT 06/22/2024 7:10 PM HEAD PIECE ASSEMBLER CBC WITH PLATELETS & DIFFERENTIAL STAT 06/20/2024 5:48 AM HEAD PIECE ASSEMBLER CBC WITH PLATELETS AND DIFFERENTIAL STAT 06/20/2024 5:48 AM HEAD PIECE ASSEMBLER RETICULOCYTE COUNT Routine 06/20/2024 5: 48 AM HEAD PIECE ASSEMBLER COMPREHENSIVE METABOLIC PANEL Routine 06/20/2024 5:48 AM HEAD PIECE ASSEMBLER LACTATE DEHYDROGENASE Routine 06/20/2024 5:48 AM HEAD PIECE ASSEMBLER CBC WITH PLATELETS & DIFFERENTIAL STAT 06/19/2024 9:30 AM HEAD PIECE ASSEMBLER RBC AND PLATELET MORPHOLOGY STAT 06/19/2024 9:30 AM HEAD PIECE ASSEMBLER CBC WITH PLATELETS AND DIFFERENTIAL STAT 06/19/2024 9:30 AM HEAD PIECE ASSEMBLER RETICULOCYTE COUNT STAT 06/19/2024 9: 30 AM HEAD PIECE ASSEMBLER COMPREHENSIVE METABOLIC PANEL STAT 06/19/2024 9:30 AM HEAD PIECE ASSEMBLER LACTATE DEHYDROGENASE STAT 06/19/2024 9:30 AM HEAD PIECE ASSEMBLER PLATELET COUNT STAT 06/19/2024 12:17 AM HEAD PIECE ASSEMBLER CREATININE STAT 06/19/2024 12:17 AM HEAD PIECE ASSEMBLER CBC WITH PLATELETS & DIFFERENTIAL STAT 06/18/2024 8:24 AM HEAD PIECE ASSEMBLER DIFFERENTIAL STAT 06/18/2024 8:24 AM HEAD PIECE ASSEMBLER CBC WITH PLATELETS AND DIFFERENTIAL STAT 06/18/2024 8:24 AM HEAD PIECE ASSEMBLER RETICULOCYTE COUNT STAT 06/18/2024 8: 24 AM HEAD PIECE ASSEMBLER COMPREHENSIVE METABOLIC PANEL STAT 06/18/2024 8:24 AM HEAD PIECE ASSEMBLER LACTATE DEHYDROGENASE STAT 06/18/2024 8:24 AM HEAD PIECE ASSEMBLER ROUTINE UA WITH MICROSCOPIC REFLEX TO CULTURE STAT 06/17/2024 1:11 PM HEAD PIECE ASSEMBLER TRANSFUSE RED BLOOD CELLS (UNIT) STAT 06/17/2024 10:26 AM HEAD PIECE ASSEMBLER PREPARE RED BLOOD CELLS (UNIT) STAT 06/17/2024 9:12 AM HEAD PIECE ASSEMBLER TRANSFERRIN Add-On 06/17/2024 6:16 AM HEAD PIECE ASSEMBLER IRON AND IRON BINDING CAPACITY Add-On 06/17/2024 6:16 AM HEAD PIECE ASSEMBLER CBC WITH PLATELETS STAT 06/17/2024 6: 16 AM HEAD PIECE ASSEMBLER BASIC METABOLIC PANEL STAT 06/17/2024 6:16 AM HEAD PIECE ASSEMBLER TROPONIN T, HIGH SENSITIVITY STAT 06/16/2024 9:33 PM HEAD PIECE ASSEMBLER XR CHEST 2 VIEWS STAT 06/16/2024 6:09 PM HEAD PIECE ASSEMBLER ABO/RH TYPE AND SCREEN STAT 5 5:37 PM HEAD PIECE ASSEMBLER CBC WITH PLATELETS & DIFFERENTIAL STAT 06/16/2024 5:37 PM HEAD PIECE ASSEMBLER BLOOD CULTURE STAT 06/16/2024 5:37 PM HEAD PIECE ASSEMBLER TYPE AND SCREEN, ADULT STAT 5:37 PM HEAD PIECE ASSEMBLER RBC AND PLATELET MORPHOLOGY STAT 06/16/2024 5:37 PM HEAD PIECE ASSEMBLER CBC WITH PLATELETS AND DIFFERENTIAL STAT 06/16/2024 5:37 PM HEAD PIECE ASSEMBLER PROLACTIN STAT 06/16/2024 5:37 PM HEAD PIECE ASSEMBLER TROPONIN T, HIGH SENSITIVITY STAT 06/16/2024 5:37 PM HEAD PIECE ASSEMBLER COMPREHENSIVE METABOLIC PANEL STAT 06/16/2024 5:37 PM HEAD PIECE ASSEMBLER EKG 12-LEAD, TRACING ONLY STAT 06/16/2024 4:55 PM HEAD PIECE ASSEMBLER CBC WITH PLATELETS & DIFFERENTIAL STAT 06/15/2024 6:09 AM HEAD PIECE ASSEMBLER CBC WITH PLATELETS AND DIFFERENTIAL STAT 06/15/2024 6:09 AM HEAD PIECE ASSEMBLER BASIC METABOLIC PANEL STAT 06/15/2024 6:09 AM HEAD PIECE ASSEMBLER XR CHEST PORT 1 VIEW STAT 06/14/2024 8:46 AM HEAD PIECE ASSEMBLER CBC WITH PLATELETS STAT 06/14/2024 7: 08 AM HEAD PIECE ASSEMBLER BASIC METABOLIC PANEL STAT 06/14/2024 7:08 AM HEAD PIECE ASSEMBLER CBC WITH PLATELETS STAT 06/13/2024 6: 32 PM HEAD PIECE ASSEMBLER CBC WITH PLATELETS & DIFFERENTIAL STAT 06/13/2024 6:00 AM HEAD PIECE ASSEMBLER RBC AND PLATELET MORPHOLOGY STAT 06/13/2024 6:00 AM HEAD PIECE ASSEMBLER CBC WITH PLATELETS AND DIFFERENTIAL STAT 06/13/2024 6:00 AM HEAD PIECE ASSEMBLER BASIC METABOLIC PANEL STAT 06/13/2024 5:59 AM HEAD PIECE ASSEMBLER RESPIRATORY PANEL PCR STAT 06/12/2024 9:34 PM HEAD PIECE ASSEMBLER BLOOD CULTURE STAT 06/12/2024 8:46 PM HEAD PIECE ASSEMBLER BLOOD CULTURE STAT 06/12/2024 8:46 PM HEAD PIECE ASSEMBLER XR CHEST 2 VIEWS STAT 06/12/2024 7:38 PM HEAD PIECE ASSEMBLER ABO/RH TYPE AND SCREEN Add-On 7:17 PM HEAD PIECE ASSEMBLER CBC WITH PLATELETS & DIFFERENTIAL STAT 06/12/2024 7:17 PM HEAD PIECE ASSEMBLER TYPE AND SCREEN, ADULT Routine 7:17 PM HEAD PIECE ASSEMBLER RBC AND PLATELET MORPHOLOGY STAT 06/12/2024 7:17 PM HEAD PIECE ASSEMBLER CBC WITH PLATELETS AND DIFFERENTIAL STAT 06/12/2024 7:17 PM HEAD PIECE ASSEMBLER BLOOD GAS VENOUS STAT 06/12/2024 7:17 PM HEAD PIECE ASSEMBLER TROPONIN T, HIGH SENSITIVITY STAT 06/12/2024 7:17 PM HEAD PIECE ASSEMBLER BASIC METABOLIC PANEL STAT 06/12/2024 7:17 PM HEAD PIECE ASSEMBLER INR STAT 06/12/2024 7:17 PM HEAD PIECE ASSEMBLER EKG 12-LEAD, TRACING ONLY STAT 06/12/2024 6:37 PM HEAD PIECE ASSEMBLER ECG 12-LEAD WITH MUSE SJN,SJO,WWH STAT 06/11/2024 9:04 PM HEAD PIECE ASSEMBLER CBC WITH PLATELETS & DIFFERENTIAL Routine 06/07/2024 1:15 PM HEAD PIECE ASSEMBLER Sickle cell pain crisis (H) RBC AND PLATELET MORPHOLOGY Routine 06/07/2024 1:15 PM HEAD PIECE ASSEMBLER Sickle cell pain crisis (H) INFLUENZA A/B, RSV AND SARS-COV2 PCR Routine 06/07/2024 1:15 PM HEAD PIECE ASSEMBLER Fever CBC WITH PLATELETS AND DIFFERENTIAL Routine 06/07/2024 1:15 PM HEAD PIECE ASSEMBLER Sickle cell pain crisis (H) BASIC METABOLIC PANEL Routine 06/07/2024 1:15 PM HEAD PIECE ASSEMBLER Sickle cell pain crisis (H) ECG 12-LEAD WITH MUSE SJN,SJO,WWH STAT 06/05/2024 11:40 AM HEAD PIECE ASSEMBLER ECG 12-LEAD WITH MUSE SJN,SJO,WWH STAT 06/03/2024 3:24 PM HEAD PIECE ASSEMBLER CBC WITH PLATELETS & DIFFERENTIAL STAT 05/31/2024 10:21 PM HEAD PIECE ASSEMBLER RBC AND PLATELET MORPHOLOGY STAT 05/31/2024 10:21 PM HEAD PIECE ASSEMBLER CBC WITH PLATELETS AND DIFFERENTIAL STAT 05/31/2024 10:21 PM HEAD PIECE ASSEMBLER BASIC METABOLIC PANEL STAT 05/31/2024 10:21 PM HEAD PIECE ASSEMBLER RETICULOCYTE COUNT STAT 05/31/2024 10:21 PM HEAD PIECE ASSEMBLER TRANSFUSE RED BLOOD CELLS (UNIT) Routine 05/30/2024 8:28 AM HEAD PIECE ASSEMBLER 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) History of transfusion PREPARE RED BLOOD CELLS (UNIT) Routine 05/29/2024 5:12 PM HEAD PIECE ASSEMBLER ABO/RH TYPE AND SCREEN Routine 11:23 AM HEAD PIECE ASSEMBLER History of transfusion CBC WITH PLATELETS & DIFFERENTIAL Routine 05/29/2024 11:23 AM HEAD PIECE ASSEMBLER BILL ONLY- CAPILLARY ELECTROPHORESIS Routine 05/29/2024 11:23 AM HEAD PIECE ASSEMBLER BILL ONLY- SICKLE SOLUBILITY BILL Routine 05/29/2024 11:23 AM HEAD PIECE ASSEMBLER URINE CULTURE Routine 05/29/2024 11:23 AM HEAD PIECE ASSEMBLER TYPE AND SCREEN, ADULT Add-On 02/03/202 5 11:23 AM HEAD PIECE ASSEMBLER History of transfusion RBC AND PLATELET MORPHOLOGY Routine 05/29/2024 11:23 AM HEAD PIECE ASSEMBLER CBC WITH PLATELETS AND DIFFERENTIAL Routine 05/29/2024 11:23 AM HEAD PIECE ASSEMBLER GENOTYPE RED BLOOD CELL Routine 05/29/2024 11:23 AM HEAD PIECE ASSEMBLER History of transfusion HEMOGLOBIN EVAL REFLEX TO ELP OR RBC SOLUBILITY Routine 05/29/2024 11:23 AM HEAD PIECE ASSEMBLER FERRITIN Routine 05/29/2024 11:23 AM HEAD PIECE ASSEMBLER ROUTINE UA WITH MICROSCOPIC REFLEX TO CULTURE Routine 05/29/2024 11:23 AM HEAD PIECE ASSEMBLER COMPREHENSIVE METABOLIC PANEL Routine 05/29/2024 11:23 AM HEAD PIECE ASSEMBLER RETICULOCYTE COUNT Routine 05/29/2024 11:23 AM HEAD PIECE ASSEMBLER CBC WITH PLATELETS & DIFFERENTIAL STAT 05/29/2024 12:53 AM HEAD PIECE ASSEMBLER MANUAL DIFFERENTIAL STAT 05/29/2024 12:53 AM HEAD PIECE ASSEMBLER CBC WITH PLATELETS AND DIFFERENTIAL STAT 05/29/2024 12:53 AM HEAD PIECE ASSEMBLER RETICULOCYTE COUNT STAT 05/29/2024 12:53 AM HEAD PIECE ASSEMBLER CBC WITH PLATELETS & DIFFERENTIAL STAT 05/27/2024 3:13 PM HEAD PIECE ASSEMBLER MANUAL DIFFERENTIAL STAT 05/27/2024 3 :13 PM HEAD PIECE ASSEMBLER CBC WITH PLATELETS AND DIFFERENTIAL STAT 05/27/2024 3:13 PM HEAD PIECE ASSEMBLER RETICULOCYTE COUNT STAT 05/27/2024 3: 13 PM HEAD PIECE ASSEMBLER XR CHEST 2 VIEWS STAT 05/27/2024 2:57 PM HEAD PIECE ASSEMBLER COMPREHENSIVE METABOLIC PANEL STAT 05/27/2024 2:30 PM HEAD PIECE ASSEMBLER ECG 12-LEAD WITH MUSE SJN,SJO,WWH STAT 05/27/2024 12:12 PM HEAD PIECE ASSEMBLER IR PROCEDURE NOTE Routine 05/25/2024 2:5 4 PM HEAD PIECE ASSEMBLER IR CHEST PORT PLACEMENT > 5 YRS OF AGE Routine: Next available opening 05/25/2024 2:47 PM HEAD PIECE ASSEMBLER 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) IR CHEST PORT PLACEMENT > 5 YRS OF AGE Priority: 1-2 Weeks 05/25/2024 2:47 PM HEAD PIECE ASSEMBLER 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) HCG QUALITATIVE URINE Routine 05/25/2024 12:03 PM HEAD PIECE ASSEMBLER CT CHEST PULMONARY EMBOLISM W CONTRAST STAT 05/23/2024 9:33 PM HEAD PIECE ASSEMBLER N TERMINAL PRO BNP OUTPATIENT STAT 05/23/2024 9:02 PM HEAD PIECE ASSEMBLER TROPONIN T, HIGH SENSITIVITY STAT 05/23/2024 9:02 PM HEAD PIECE ASSEMBLER RETICULOCYTE COUNT STAT 05/23/2024 9: 02 PM HEAD PIECE ASSEMBLER CBC WITH PLATELETS STAT 05/23/2024 9: 02 PM HEAD PIECE ASSEMBLER ECG 12-LEAD WITH MUSE SJN,JEREMIAS,SHEYLAH STAT 05/23/2024 6:54 PM HEAD PIECE ASSEMBLER XR CHEST 2 VIEWS STAT 05/22/2024 5:19 PM HEAD PIECE ASSEMBLER CBC WITH PLATELETS & DIFFERENTIAL STAT 05/22/2024 3:51 PM HEAD PIECE ASSEMBLER RBC AND PLATELET MORPHOLOGY STAT 05/22/2024 3:51 PM HEAD PIECE ASSEMBLER CBC WITH PLATELETS AND DIFFERENTIAL STAT 05/22/2024 3:51 PM HEAD PIECE ASSEMBLER BASIC METABOLIC PANEL STAT 05/22/2024 3:51 PM HEAD PIECE ASSEMBLER ECG 12-LEAD WITH MUSE SJN,SJO,WWH STAT 05/22/2024 3:14 PM HEAD PIECE ASSEMBLER XR CHEST 2 VIEWS STAT 05/20/2024 9:30 AM HEAD PIECE ASSEMBLER CBC WITH PLATELETS & DIFFERENTIAL STAT 05/20/2024 9:09 AM HEAD PIECE ASSEMBLER RBC AND PLATELET MORPHOLOGY STAT 05/20/2024 9:09 AM HEAD PIECE ASSEMBLER BASIC METABOLIC PANEL STAT 05/20/2024 9:09 AM HEAD PIECE ASSEMBLER EXTRA GREEN TOP (LITHIUM HEPARIN) TUBE STAT 05/20/2024 9:09 AM HEAD PIECE ASSEMBLER EXTRA TUBE STAT 05/20/2024 9:09 AM HEAD PIECE ASSEMBLER CBC WITH PLATELETS AND DIFFERENTIAL STAT 05/20/2024 9:09 AM HEAD PIECE ASSEMBLER RETICULOCYTE COUNT STAT 05/20/2024 9: 09 AM HEAD PIECE ASSEMBLER BASIC METABOLIC PANEL STAT 05/20/2024 8:21 AM HEAD PIECE ASSEMBLER ECG 12-LEAD WITH MUSE SJN,SJO,WWH STAT 05/20/2024 7:36 AM HEAD PIECE ASSEMBLER CBC WITH PLATELETS & DIFFERENTIAL STAT 05/19/2024 3:05 AM HEAD PIECE ASSEMBLER MANUAL DIFFERENTIAL STAT 05/19/2024 3 :05 AM HEAD PIECE ASSEMBLER CBC WITH PLATELETS AND DIFFERENTIAL STAT 05/19/2024 3:05 AM HEAD PIECE ASSEMBLER HCG QUALITATIVE STAT 05/19/2024 3:05 AM HEAD PIECE ASSEMBLER CK TOTAL STAT 05/19/2024 3:05 AM HEAD PIECE ASSEMBLER HEPATIC FUNCTION PANEL STAT 3:05 AM HEAD PIECE ASSEMBLER BASIC METABOLIC PANEL STAT 05/19/2024 3:05 AM HEAD PIECE ASSEMBLER RETICULOCYTE COUNT STAT 05/19/2024 3: 05 AM HEAD PIECE ASSEMBLER CBC WITH PLATELETS & DIFFERENTIAL STAT 05/16/2024 10:17 PM HEAD PIECE ASSEMBLER RBC AND PLATELET MORPHOLOGY STAT 05/16/2024 10:17 PM HEAD PIECE ASSEMBLER CBC WITH PLATELETS AND DIFFERENTIAL STAT 05/16/2024 10:17 PM HEAD PIECE ASSEMBLER BASIC METABOLIC PANEL STAT 05/16/2024 10:17 PM HEAD PIECE ASSEMBLER INFLUENZA A/B, RSV AND SARS-COV2 PCR STAT 05/16/2024 10:00 PM HEAD PIECE ASSEMBLER CBC WITH PLATELETS & DIFFERENTIAL STAT 05/14/2024 10:24 PM HEAD PIECE ASSEMBLER MANUAL DIFFERENTIAL STAT 05/14/2024 10:24 PM HEAD PIECE ASSEMBLER CBC WITH PLATELETS AND DIFFERENTIAL STAT 05/14/2024 10:24 PM HEAD PIECE ASSEMBLER HCG QUALITATIVE STAT 05/14/2024 10:24 PM HEAD PIECE ASSEMBLER TROPONIN T, HIGH SENSITIVITY STAT 05/14/2024 10:24 PM HEAD PIECE ASSEMBLER RETICULOCYTE COUNT STAT 05/14/2024 10:24 PM HEAD PIECE ASSEMBLER HEPATIC FUNCTION PANEL STAT 10:24 PM HEAD PIECE ASSEMBLER BASIC METABOLIC PANEL STAT 05/14/2024 10:24 PM HEAD PIECE ASSEMBLER ECG 12-LEAD WITH MUSE SJN,SJO,WWH STAT 05/14/2024 10:12 PM HEAD PIECE ASSEMBLER EXTRA PURPLE TOP TUBE STAT 05/13/2024 6:17 PM HEAD PIECE ASSEMBLER EXTRA TUBE STAT 05/13/2024 6:17 PM HEAD PIECE ASSEMBLER LACTATE DEHYDROGENASE STAT 05/13/2024 6:16 PM HEAD PIECE ASSEMBLER CBC WITH PLATELETS & DIFFERENTIAL STAT 05/13/2024 4:57 PM HEAD PIECE ASSEMBLER MANUAL DIFFERENTIAL STAT 05/13/2024 4 :57 PM HEAD PIECE ASSEMBLER CBC WITH PLATELETS AND DIFFERENTIAL STAT 05/13/2024 4:57 PM HEAD PIECE ASSEMBLER TROPONIN T, HIGH SENSITIVITY STAT 05/13/2024 4:57 PM HEAD PIECE ASSEMBLER RETICULOCYTE COUNT STAT 05/13/2024 4: 57 PM HEAD PIECE ASSEMBLER HEPATIC FUNCTION PANEL STAT 4:57 PM HEAD PIECE ASSEMBLER BASIC METABOLIC PANEL STAT 05/13/2024 4:57 PM HEAD PIECE ASSEMBLER ECG 12-LEAD WITH MUSE SJN,SJO,WWH STAT 05/13/2024 3:38 PM HEAD PIECE ASSEMBLER INFLUENZA A/B, RSV AND SARS-COV2 PCR STAT 05/08/2024 7:33 PM HEAD PIECE ASSEMBLER XR CHEST 2 VIEWS STAT 05/08/2024 5:27 PM HEAD PIECE ASSEMBLER CBC WITH PLATELETS & DIFFERENTIAL STAT 05/08/2024 4:14 PM HEAD PIECE ASSEMBLER RBC AND PLATELET MORPHOLOGY STAT 05/08/2024 4:14 PM HEAD PIECE ASSEMBLER CBC WITH PLATELETS AND DIFFERENTIAL STAT 05/08/2024 4:14 PM HEAD PIECE ASSEMBLER HCG QUALITATIVE STAT 05/08/2024 4:14 PM HEAD PIECE ASSEMBLER INR STAT 05/08/2024 4:14 PM HEAD PIECE ASSEMBLER TROPONIN T, HIGH SENSITIVITY STAT 05/08/2024 4:14 PM HEAD PIECE ASSEMBLER RETICULOCYTE COUNT STAT 05/08/2024 4: 14 PM HEAD PIECE ASSEMBLER COMPREHENSIVE METABOLIC PANEL STAT 05/08/2024 4:14 PM HEAD PIECE ASSEMBLER ECG 12-LEAD WITH MUSE SJN,SJO,WWH STAT 05/08/2024 3:13 PM HEAD PIECE ASSEMBLER ECG 12-LEAD WITH MUSE SJN,SJO,WWH STAT 05/06/2024 7:51 PM HEAD PIECE ASSEMBLER CBC WITH PLATELETS & DIFFERENTIAL STAT 05/06/2024 7:43 PM HEAD PIECE ASSEMBLER RBC AND PLATELET MORPHOLOGY STAT 05/06/2024 7:43 PM HEAD PIECE ASSEMBLER CBC WITH PLATELETS AND DIFFERENTIAL STAT 05/06/2024 7:43 PM HEAD PIECE ASSEMBLER HEPATIC FUNCTION PANEL STAT 7:43 PM HEAD PIECE ASSEMBLER RETICULOCYTE COUNT STAT 05/06/2024 7: 43 PM HEAD PIECE ASSEMBLER TROPONIN T, HIGH SENSITIVITY STAT 05/06/2024 7:43 PM HEAD PIECE ASSEMBLER BASIC METABOLIC PANEL STAT 05/06/2024 7:43 PM HEAD PIECE ASSEMBLER XR CHEST 2 VIEWS STAT 05/05/2024 12:16 PM HEAD PIECE ASSEMBLER CBC WITH PLATELETS & DIFFERENTIAL STAT 05/05/2024 11:50 AM HEAD PIECE ASSEMBLER RBC AND PLATELET MORPHOLOGY STAT 05/05/2024 11:50 AM HEAD PIECE ASSEMBLER CBC WITH PLATELETS AND DIFFERENTIAL STAT 05/05/2024 11:50 AM HEAD PIECE ASSEMBLER TROPONIN T, HIGH SENSITIVITY STAT 05/05/2024 11:50 AM HEAD PIECE ASSEMBLER RETICULOCYTE COUNT STAT 05/05/2024 11:50 AM HEAD PIECE ASSEMBLER BASIC METABOLIC PANEL STAT 05/05/2024 11:50 AM HEAD PIECE ASSEMBLER ECG 12-LEAD WITH MUSE SJN,SJO,WWH STAT 05/05/2024 11:03 AM HEAD PIECE ASSEMBLER from Last 3 Months Results * EKG 12-lead, tracing only (07/27/2024 7:16 PM CDT) Only the most recent of9 resultswithin the time period is included. Systolic Blood Pressure mmHg RADIOLOGY RESULTS Diastolic Blood Pressure mmHg RADIOLOGY RESULTS Ventricular Rate 81 BPM RAD IOLOGY RESULTS Atrial Rate 81 BPM RADIOLOG Y RESULTS CT Interval 144 ms RADIOLOG Y RESULTS QRS Duration 74 ms RADIOLO GY RESULTS QT 358 ms RADIOLOGY RESULTS QTc 415 ms RADIOLOGY RESULTS P [place] 34 degrees RADIOLOGY RESULTS R AXIS 68 degrees RADIOLOGY RESULTS T [place] 45 degrees RADIOLOGY RESULTS Interpretation ECG Sinus rhythm Normal ECG Unconfirmed report - interpretation of this ECG is computer generated - see medical record for final interpretation Confirmed by - EMERGENCY ROOM, PHYSICIAN ([id number]), supervising film or videotape editor NEGRA ASTORGA ([id number]) on 07/28/2024 6:48:17 AM RADIOLOGY RESULTS 07/27/2024 [...] testing is available if warranted by ordering [id number], HCG Quantitative . Urine MID-STREAM URINE SPECIMEN / Unknown Non-blood Collection / Unknown 07/26/2024 9:50 PM CDT 07/26/2024 10:12 PM CDT us Abdelrahman Goddard MD LAB - URINE ORDERABLES Final R esult [facility] [address] [facility], [address] * (ABNORMAL) RBC and Platelet Morphology [...] BLOOD ORDERABLES Final Re sult [facility] [address] [facility], [address] * (ABNORMAL) CBC with platelets and [...] BLOOD ORDERABLES Final Re sult [facility] [address] [facility], [address] [id number] * Troponin T, High Sensitivity (07/25/2024 8:24 PM CDT) Only the most recent of15 resultswithin the time period is included. [facility] Troponin T, High Sensitivity <6 <=14 [...] BLOOD ORDERABLES Final Re sult [facility] [address] [facility], [address] * (ABNORMAL) Reticulocyte count (07/25/2024 8:24 [...] Re sult [facility] [address] [facility], [address] * (ABNORMAL) Comprehensive metabolic panel (07/25/2024 8:24 PM CDT) Only the most recent of20 resultswithin the time period is included. Pathologist [facility] Sodium 137 135 - 145 mmol/L 07/25/2024 [...] Re sult [facility] [address] [facility], [address] [place] [address] * (ABNORMAL) Basic metabolic panel (07/17/2024 1:38 PM CDT) Only the most recent of22 resultswithin the time period is included. Sodium 137 135 - 145 mmol/L 07/17/2024 2:16 PM CDT [facility] Potassium 4.5 3.4 - 5.3 mmol/L 07/17/2024 2:16 PM CDT [facility] Chloride 108(H) 98 - 107 mmol/L 07/17/2024 2:16 PM CDT [facility] Carbon Dioxide (CO2) 21(L) 22 - 29 mmol/L 07/17/2024 2:16 PM CDT [facility] Anion Gap 8 7 - 15 mmol/L 07/17/2024 2:16 PM CDT [facility] Urea Nitrogen 8.4 6.0 - 20.0 mg/dL 07/17/2024 2:16 PM CDT [facility] Creatinine 0.67 0.51 - 0.95 mg/dL 07/17/2024 2:16 PM CDT [facility] GFR Estimate >90 >60 mL/min/1.7 3m2 07/17/2024 2:16 PM CDT [facility] Comment:eGFR calculated 2020 CKD-EPI equation. Calcium 9.1 8.8 - 10.4 mg/dL 07/17/2024 2:16 PM CDT [facility] Glucose 96 70 - 99 mg/dL 07/17/2024 2:16 PM CDT [facility] Blood VENOUS LINE / Unknown IVAD (Port) / Unknown 07/17/2024 1:38 PM CDT 07/17/2024 1:43 PM CDT us Case Samuel MD LAB - BLOOD ORDERABLES Fi nal Result [facility] [address] [place] [address] 1[address] [place] [address] * (ABNORMAL) INR (07/16/2024 9:57 PM CDT) Only the most recent of5 resultswithin the time period is included. INR 1.37(H) 0.85 - 1.15 07/16/2024 10:31 PM CDT [facility] Blood BLOOD SPECIMEN / Unknown Venipuncture / Unknown 07/16/2024 9:57 PM CDT 07/16/2024 10:14 PM CDT us Polly Naylor MD LAB - BLOOD ORDERABLES Final Res ult [facility] [address] [facility], Room [address] [place] [phone] * D dimer quantitative (07/16/2024 9:57 PM [...] - BLOOD ORDERABLES Final Res ult [facility] [address] [facility], [address] [phone] * XR Chest 2 Views (07/16/2024 9:15 PM CDT) Only the most recent of12 resultswithin the time period is included. Anatomical Region Laterality Modality Chest Digital Radiogra phy 07/16/2024 9:15 PM CDT Impressions 07/16/2024 10:04 PM CDT IMPRESSION: No convincing evidence of active cardiopulmonary disease. Narrative 07/16/2024 10:04 PM CDT EXAM: CHEST 2 VIEWS LOCATION: [facility] DATE: 07/16/2024 INDICATION: Chest pain. COMPARISON: 07/10/2024. FINDINGS: A few curvilinear opacities in the lateral aspect of the mid right lung were present previously and likely represent scarring. The lungs are otherwise clear. Normal size cardiac silhouette. Bilateral subclavian central venous catheters are again noted. Procedure Note Rob Shukla MD - 07/16/2024 EXAM: CHEST 2 VIEWS LOCATION: [facility] DATE: 07/16/2024 INDICATION: Chest pain. COMPARISON: 07/10/2024. [...] 07/11/2024 6:28 PM CDT [facility] Specific [place] Urine 1.011 1.003 - 1.035 07/11/2024 6:28 [...] ORDERABLES Fi nal Result Performing Organization Address [facility] Co de Phone Number [facility] [address] [facility], [address] [place] [phone] * Adult Type and Screen (07/11/2024 4:15 [...] blood cells may occur. SPECIMEN EXPIRATION DATE [id number] 07/11/2024 3:14 PM CDT [facility] Blood BLOOD SPECIMEN / Unknown Venipuncture / Unknown 07/11/2024 4:15 PM CDT 07/11/2024 4:29 PM CDT Ana Troy MD LAB - BLOOD BANK TEST ORD ER Final Result Performing Organization Address [facility]/ZIP Co de Phone Number [facility] [address] [place] [address] * HCG qualitative (blood) (07/10/2024 8:16 PM CDT) Only the most recent of8 resultswithin the time period is included. Pathologist [facility] hCG Serum Qualitative Negative Negative JARET 07/10/2024 8:55 PM CDT [facility] Comment:This test is for scr eening purposes. Results should be interpreted along with the clinical picture. Confirmation testing is available if warranted by ordering REC158, HCG Quantitative . Blood BLOOD SPECIMEN / Unknown Venipuncture / Unknown 07/10/2024 8:16 PM CDT 07/10/2024 8:20 PM CDT us Ifrah Wills PA-C LAB - BLOOD ORDERABLES Fin al Result [facility] [address], [address] [place] [address] * (ABNORMAL) Manual Differential (07/09/2024 2:54 AM CDT) Only the most recent of7 resultswithin the time period is included. [facility] % Neutrophils 21 % JARET 07/09/2024 5:24 [...] BLOOD ORDERABLES Final Res ult [facility] [address] 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 Functional asplenia Gallstones Hb-SS disease [...] inadequate. naloxone (NARCAN) 4 MG/0.1ML nasal spray [place] 1 spray (4 mg) into one nostril [...] performed with 5units of RBCs (Rh and [place] matched, fresh, Hgb S negative). The patient's [...] Emelina Rodriguez MD, PhD Transfusion Medicine Attending Infant Babysitter, Blood Bank Laboratory Pager [phone] us Lynn Aguilar MD IP APHERESIS Final [...] Res ult SPECIALTY CORE/PROT/ENDO Specialty Core/Prot/Endo [address] [facility] [address], [address] * (ABNORMAL) Hemoglobin and hematocrit (07/06/2024 11:12 AM CDT) Only the most recent of2 resultswithin the time period is included. Hemoglobin 8.8(L) 11.7 - 15.7 g/dL 07/06/2024 11:20 AM CDT [facility]ORE LAB Hematocrit 25.5(L) 35.0 - 47.0 % 07/06/2024 11:20 AM CDT [facility] Blood BLOOD SPECIMEN / Unknown IVAD (Port) / Unknown 07/06/2024 11:12 AM CDT 07/06/2024 11:17 AM CDT us Lynn Aguilar MD LAB - BLOOD ORDERABLES Final Res ult [facility] CORE [facility] [address] 1st [place] [address] * Prepare red blood cells (unit) (07/05/2024 11:35 PM CDT) Only the most recent of7 resultswithin the time period is included. Blood Component Type Red Blood Cells BLOOD BANK Product Code [id number] [facility] BLOO D BANK Unit Status Transfused [facility]U BLOO D BANK Unit Number [id number] UU B LOOD BANK CROSSMATCH COMPATIBLE UU BLOOD BANK CODING SYSTEM [id number] UU BLO OD BANK ISSUE DATE AND TIME [id number] UU BLOOD BANK UNIT ABO/RH A+ UU BLOOD BANK UNIT TYPE ISBT 6200 UU BL OOD BANK 07/05/2024 11:3 5 PM CDT us Doctor Unknown MD BLOOD BANK PRODUCT ORDERABLES Final Result [facility] BLOOD BANK [address] [place] [address], [facility] * (ABNORMAL) Manual Differential (07/02/2024 7:03 [...] - BLOOD ORDERABLES Fi nal Result LABORATORY [facility] [place] Core Lab [address] [facility], [address] * Extra Purple Top Tube (06/29/2024 6:05 AM HEAD PIECE ASSEMBLER) Only the most recent of2 resultswithin the time period is included. Hold Specimen [facility] 06/29/2024 7:31 AM HEAD PIECE ASSEMBLER U LABORATORY Blood ARTERIAL LINE / Unknown IVAD (Port) / Unknown 06/29/2024 6:05 AM HEAD PIECE ASSEMBLER 06/29/2024 6:19 AM HEAD PIECE ASSEMBLER Alex Gilelspie MD LAB - BLOOD ORDERABLES Final Re sult LABORATORY [facility] Core Lab [address] [facility], [address] [phone] * (ABNORMAL) Lactate Dehydrogenase (06/28/2024 6:06 AM HEAD PIECE ASSEMBLER) Only the most recent of5 resultswithin the time period is included. Pathologist [facility] Lactate Dehydrogenase 451(H) 0 - 250 U/L 06/28/2024 6:51 AM HEAD PIECE ASSEMBLER U LABORATORY Blood VENOUS LINE / Unknown Venipuncture / Unknown 06/28/2024 6:06 AM HEAD PIECE ASSEMBLER 06/28/2024 6:22 AM HEAD PIECE ASSEMBLER Polly Allen MD LAB - BLOOD ORDER SYD Final Result LABORATORY [facility] Core Lab [address] [facility], [address] * (ABNORMAL) Bilirubin direct (06/28/2024 6:06 AM HEAD PIECE ASSEMBLER) [facility] Bilirubin Direct 0.53(H) 0.00 - 0.30 mg/dL 06/28/2024 9:50 AM HEAD PIECE ASSEMBLER U LABORATORY Blood VENOUS LINE / Unknown Venipuncture / Unknown 06/28/2024 6:06 AM HEAD PIECE ASSEMBLER 06/28/2024 6:22 AM HEAD PIECE ASSEMBLER Polly Allen MD LAB - BLOOD ORDER SYD Final Result Performing Organization Address City/[facility] Co de Phone Number LABORATORY [facility] Core Lab [address] [place] [address], Room [address] [place] [address] * Heparin Unfractionated Anti Xa Level (06/28/2024 1:57 AM HEAD PIECE ASSEMBLER) Only the most recent of5 resultswithin the time period is included. [facility] Anti Xa Unfractionated Heparin 0.45 For Reference Range, See Comment IU/mL 06/28/2024 2:32 AM HEAD PIECE ASSEMBLER [facility] Blood VENOUS LINE / Unknown Venipuncture / Unknown 06/28/2024 1:57 AM HEAD PIECE ASSEMBLER 06/28/2024 2:17 AM HEAD PIECE ASSEMBLER Narrative [facility] - 06/28/2024 2:32 AM HEAD PIECE ASSEMBLER Therapeutic Range: UFH: 0.25-0.50 IU/mL for low intensity dosing, 0.30-0.70 IU/mL for high intensity dosing DVT and PE. This test is not validated for other direct factor X inhibitors (e.g. rivaroxaban, apixaban, edoxaban, betrixaban, fondaparinux) and should not be used for monitoring of other medications. Alex Gillespie MD LAB - BLOOD ORDERABLES Final Re sult Performing Organization Address City/[facility] Co de Phone Number LABORATORY [facility] Core Lab [address] [facility], [address] * Extra Green Top (Grannis Heparin) Tube (06/27/2024 5:55 PM HEAD PIECE ASSEMBLER) Only the most recent of2 resultswithin the time period is included. Pathologist [facility] Hold Specimen JI 06/27/2024 8:31 PM HEAD PIECE ASSEMBLER LABORATORY Blood STRUCTURE OF RIGHT WRIST REGION / Unknown Venipuncture / Unknown 06/27/2024 5:55 PM HEAD PIECE ASSEMBLER 06/27/2024 7:22 PM HEAD PIECE ASSEMBLER Alex Gillespie MD LAB - BLOOD ORDERABLES Final Re sult Performing Organization Address [facility] de Phone Number LABORATORY [facility] [address] [place] [address], [address] * ECHO COMPLETE (06/27/2024 2:33 PM HEAD PIECE ASSEMBLER) [facility] LVEF 55-60% CARDIOLOGY RESULTS Anatomical Region Laterality Modality Echocardiography 06/27/2024 1:58 PM HEAD PIECE ASSEMBLER Narrative 06/27/2024 2:51 PM HEAD PIECE ASSEMBLER [id number]^BRITTANEY^KAILEY [facility] Echocardiography Laboratory [address] [place] [id number] Name: LEW HERNÁNDEZ : 1995 Study Date: 06/27/2024 01:58 PM Age: 29 yrs Gender: Female Patient Location: [facility] Reason For Study: Pulmonary Emboli [...] Procedure Note Mason Perea MD - 06/27/2024 [id number]^BRITTANEY^KAILEY [facility] Echocardiography Laboratory [address] [place] [address] Name: LEW HERNÁNDEZ : 1995 Study Date: 06/27/2024 01:58 PM Age: 29 yrs Gender: Female Patient Location: [facility] Reason For Study: Pulmonary Emboli [...] Extremity Venous Duplex Bilateral (06/27/2024 11:21 AM HEAD PIECE ASSEMBLER) Anatomical Region Laterality Modality Vascular, Thigh, Leg Ultrasound Impressions 06/27/2024 11:45 AM HEAD PIECE ASSEMBLER IMPRESSION: No evidence of deep venous thrombosis in either lower extremity. I have personally reviewed the examination and initial interpretation and I agree with the findings. MAICO QUAN MD Narrative 06/27/2024 11:45 AM HEAD PIECE ASSEMBLER EXAMINATION: DOPPLER VENOUS ULTRASOUND OF BILATERAL LOWER [...] MAICO QUAN MD Polly Marly Allen MD [facility] ORDERABLES Final Result * Influenza A/B, RSV and SARS-CoV2 PCR (COVID-19) Nose (06/27/2024 8:43 AM HEAD PIECE ASSEMBLER) Only the most recent of4 resultswithin the time period is included. Pathologist [facility] Influenza A PCR Negative Negative 06/27/2024 10:03 AM HEAD PIECE ASSEMBLER [facility] Influenza B PCR Negative Negative 06/27/2024 10:03 AM HEAD PIECE ASSEMBLER [facility] RSV PCR Negative Negative 06/27/2024 10:03 AM HEAD PIECE ASSEMBLER [facility] SARS CoV2 PCR Negative Negative 06/27/2024 10:03 AM HEAD PIECE ASSEMBLER [facility] Comment:NEGATIVE: SARS-CoV-2 (COVID-19) RNA not detected, presumed negative. Swab NASAL STRUCTURE / Unknown Non-blood Collection / Unknown 06/27/2024 8:43 AM HEAD PIECE ASSEMBLER 06/27/2024 8:59 AM HEAD PIECE ASSEMBLER Narrative [facility] - 06/27/2024 10:03 AM HEAD PIECE ASSEMBLER Testing was performed using the Xpert Xpress CoV2/Flu/RSV Assay on the [employer] GeneXpert Instrument. This test should be ordered [...] management. This test was validated by the [facility]. These laboratories are certified under the Clinical Laboratory Improvement Amendments of 1988 (CLIA-88) as qualified to perfom high complexity laboratory testing. Polly Allen MD LAB - MICRO GENER AL ORDERABLES Final Result [facility] Inf. Diseases Diag. Lab [address] [facility], [address] [place] [phone] * (ABNORMAL) Hepatic panel (06/27/2024 5:57 AM HEAD PIECE ASSEMBLER) Only the most recent of5 resultswithin the time period is included. Protein Total 7.4 6.4 - 8.3 g/dL 06/27/2024 9:06 AM HEAD PIECE ASSEMBLER [facility] Albumin 4.0 3.5 - 5.2 g/dL 06/27/2024 9:06 AM HEAD PIECE ASSEMBLER [facility] Bilirubin Total 1.2 <=1.2 mg/dL 06/27/2024 9:06 AM HEAD PIECE ASSEMBLER [facility] Alkaline Phosphatase 113 40 - 150 U/L 06/27/2024 9:06 AM HEAD PIECE ASSEMBLER [facility] AST 41 0 - 45 U/L 06/27/2024 9:06 AM HEAD PIECE ASSEMBLER [facility] ALT 35 0 - 50 U/L 06/27/2024 9:06 AM HEAD PIECE ASSEMBLER [facility] Bilirubin Direct 0.45(H) 0.00 - 0.30 mg/dL 06/27/2024 9:06 AM HEAD PIECE ASSEMBLER [facility] Blood BLOOD SPECIMEN / Unknown Venipuncture / Unknown 06/27/2024 5:57 AM HEAD PIECE ASSEMBLER 06/27/2024 6:06 AM HEAD PIECE ASSEMBLER us Polly Allen MD LAB - BLOOD ORDER SYD Final Result [facility] LABORATORY [facility] [place] Core Lab [address] [facility], [address] [phone] * (ABNORMAL) CBC with platelets (06/27/2024 5:57 AM HEAD PIECE ASSEMBLER) Only the most recent of5 resultswithin the time period is included. Pathologist [facility] WBC Count 17.8(H) 4.0 - 11.0 10e3/uL 06/27/2024 6:16 AM HEAD PIECE ASSEMBLER [facility] RBC Count 2.60(L) 3.80 - 5.20 10e6/uL 06/27/2024 6:16 AM HEAD PIECE ASSEMBLER [facility] Hemoglobin 8.5(L) 11.7 - 15.7 g/dL 06/27/2024 6:16 AM HEAD PIECE ASSEMBLER [facility] Hematocrit 25.9(L) 35.0 - 47.0 % 06/27/2024 6:16 AM HEAD PIECE ASSEMBLER [facility] MCV 100 78 - 100 fL 06/27/2024 6:16 AM HEAD PIECE ASSEMBLER [facility] MCH 32.7 26.5 - 33.0 pg 06/27/2024 6:16 AM HEAD PIECE ASSEMBLER [facility] MCHC 32.8 31.5 - 36.5 g/dL 06/27/2024 6:16 AM HEAD PIECE ASSEMBLER [facility] RDW 19.2(H) 10.0 - 15.0 % 06/27/2024 6:16 AM HEAD PIECE ASSEMBLER [facility] Platelet Count 469(H) 150 - 450 10e3/uL 06/27/2024 6:16 AM HEAD PIECE ASSEMBLER [facility] Blood BLOOD SPECIMEN / Unknown Venipuncture / Unknown 06/27/2024 5:57 AM HEAD PIECE ASSEMBLER 06/27/2024 6:07 AM HEAD PIECE ASSEMBLER Kailey Quispe MD LAB - BLOOD ORDERABLES Final Res ult [facility] LABORATORY [facility] [place] Core Lab [address] [facility], [address] [place] [phone] * (ABNORMAL) Erythrocyte sedimentation rate auto (06/26/2024 6:46 PM HEAD PIECE ASSEMBLER) Erythrocyte Sedimentation Rate 24(H) 0 - 20 mm/hr 06/26/2024 7:28 PM HEAD PIECE ASSEMBLER [facility] Blood BLOOD SPECIMEN / Unknown Venipuncture / Unknown 06/26/2024 6:46 PM HEAD PIECE ASSEMBLER 06/26/2024 7:14 PM HEAD PIECE ASSEMBLER Kailey Quispe MD LAB - BLOOD ORDERABLES Final Res ult [facility] LABORATORY [facility] [place] Core Lab [address] [facility], [address] [place] [phone] * Blood Culture Peripheral Blood (06/26/2024 6:46 PM HEAD PIECE ASSEMBLER) Only the most recent of5 resultswithin the time period is included. Culture No Growth 07/01/2024 9:47 PM HEAD PIECE ASSEMBLER [facility] Blood BLOOD SPECIMEN / Unknown Venipuncture / Unknown 06/26/2024 6:46 PM HEAD PIECE ASSEMBLER 06/26/2024 7:14 PM HEAD PIECE ASSEMBLER Kailey Quispe MD LAB - MICRO GENERAL ORDERABLES F inal Result Performing Organization Address City/[facility]/ZIP Co de Phone Number [facility]ORAT[facility] Inf. Diseases Diag. Lab [address] [facility], [address] [place] [phone] * CT Chest Pulmonary Embolism w Contrast (06/26/2024 4:15 PM HEAD PIECE ASSEMBLER) Only the most recent of2 resultswithin the time period is included. Anatomical Region Laterality Modality Chest, SUBRAD CT BODY, UMP CT CHEST Computed Tomography Impressions 06/26/2024 4:29 PM HEAD PIECE ASSEMBLER IMPRESSION: Bilateral pulmonary emboli and bilateral pulmonary nodules, cannot exclude septic emboli the lungs given 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 No definitive evidence of right heart strain. Some bony changes again noted of sickle cell in the thoracic spine and humeral heads typical of microvascular insults related to sickle cell. EVY FUENTES MD Narrative 06/26/2024 4:29 [address]IECE ASSEMBLER CT chest pulmonary angiogram with contrast INDICATION: [...] Resu lt * Procalcitonin (06/26/2024 2:42 PM HEAD PIECE ASSEMBLER) Procalcitonin 0.03 <0.50 ng/mL 06/26/2024 5:02 PM HEAD PIECE ASSEMBLER [facility] Comment: Interpretation and Recommendations <0.5 [...] See Procalcitonin Guidance document for more details. [email or web address] Factors that may affect PCT levels (not [...] Unknown Venipuncture / Unknown 06/26/2024 2:42 PM HEAD PIECE ASSEMBLER 06/26/2024 2:52 PM HEAD PIECE ASSEMBLER Result [facility] Jayden Adhikari MD LAB - BLOOD ORDERABLES Final Result LABORATORY [facility] [place] Core Lab [address] [facility], [address] [phone] * CRP inflammation (06/26/2024 2:42 PM HEAD PIECE ASSEMBLER) CRP Inflammation 4.22 <5.00 mg/L 06/27/19 5:02 PM HEAD PIECE ASSEMBLER LABORATORY Blood BLOOD SPECIMEN / Unknown Venipuncture / Unknown 06/26/2024 2:42 PM HEAD PIECE ASSEMBLER 06/26/2024 2:52 PM HEAD PIECE ASSEMBLER Result [facility] Jayden Adhikari MD LAB - BLOOD ORDERABLES Final Result Performing Organization Address City/[facility]/ZIP Co de Phone Number LABORATORY [facility] [place] Core Lab [address] [facility], [address] [phone] * Partial thromboplastin time (06/24/2024 10:11 AM HEAD PIECE ASSEMBLER) aPTT 32 22 - 38 Seconds 06/24/2024 10:55 AM HEAD PIECE ASSEMBLER LABORATORY Blood BLOOD SPECIMEN / Unknown Venipuncture / Unknown 06/24/2024 10:11 AM HEAD PIECE ASSEMBLER 06/24/2024 10:21 AM HEAD PIECE ASSEMBLER Richar Mahajan MD LAB - BLOOD ORDERABLES Liss l Result LABORATORY [facility] [place] Core Lab [address] [facility], [address] [phone] * Magnesium (06/24/2024 10:11 AM HEAD PIECE ASSEMBLER) Magnesium 2.1 1.7 - 2.3 mg/dL 06/24/2024 10:51 AM HEAD PIECE ASSEMBLER [facility] Blood BLOOD SPECIMEN / Unknown Venipuncture / Unknown 06/24/2024 10:11 AM HEAD PIECE ASSEMBLER 06/24/2024 10:21 AM HEAD PIECE ASSEMBLER Richar Mahajan MD LAB - BLOOD ORDERABLES Liss l Result [facility] LABORATORY [facility] [place] Core Lab [address] [facility], [address] * (ABNORMAL) Platelet count (06/19/2024 12:17 AM HEAD PIECE ASSEMBLER) Platelet Count 467(H) 150 - 450 10e3/uL 06/19/2024 12:44 AM HEAD PIECE ASSEMBLER [facility] Blood BLOOD SPECIMEN / Unknown Venipuncture / Unknown 06/19/2024 12:17 AM HEAD PIECE ASSEMBLER 06/19/2024 12:26 AM HEAD PIECE ASSEMBLER Laquita Kelley MD LAB - BLOOD ORDERABLES Final Re sult [facility] LABORATORY [facility] [place] Core Lab [address] [facility], [address] * Creatinine (06/19/2024 12:17 AM HEAD PIECE ASSEMBLER) Creatinine 0.72 0.51 - 0.95 mg/dL 06/19/2024 12:51 AM HEAD PIECE ASSEMBLER [facility] GFR Estimate >90 >60 mL/min/1.7 3m2 06/19/2024 12:51 AM HEAD PIECE ASSEMBLER [facility] Comment:eGFR calculated 2020 CKD-EPI equation. Blood BLOOD SPECIMEN / Unknown Venipuncture / Unknown 06/19/2024 12:17 AM HEAD PIECE ASSEMBLER 06/19/2024 12:26 AM HEAD PIECE ASSEMBLER us Laquita Kelley MD LAB - BLOOD ORDERABLES Final Re sult [facility] LABORATORY [facility] [place] Core Lab [address] [facility], [address] [phone] * Transfuse red blood cells (unit), Sickle Cell (Hgb S) Negative (06/17/2024 2:33 PM HEAD PIECE ASSEMBLER) Only the most recent of2 resultswithin the time period is included. us Drake Nina MD BLOOD TRANSFUSION ORDERABLES Final Result * (ABNORMAL) Transferrin (06/17/2024 6:16 AM HEAD PIECE ASSEMBLER) Transferrin 100.0(L) 200.0 - 360.0 mg/dL 06/17/2024 9:36 AM HEAD PIECE ASSEMBLER [facility] Blood VENOUS LINE / Unknown IVAD (Port) / Unknown 06/17/2024 6:16 AM HEAD PIECE ASSEMBLER 06/17/2024 6:27 AM HEAD PIECE ASSEMBLER us Drake Nina MD LAB - BLOOD ORDERABLES Final Result Performing Organization Address City/[facility]/ZIP Co de Phone Number [facility] LABORATORY [facility] Core Lab [address] [facility], [address] [phone] [place] [address] * Iron and iron binding capacity (06/17/2024 6:16 AM HEAD PIECE ASSEMBLER) Iron 123 37 - 145 ug/dL 06/17/2024 10:02 AM HEAD PIECE ASSEMBLER [facility] Iron Binding Capacity 06/17/2024 10:02 AM HEAD PIECE ASSEMBLER [facility] Comment:Unable to calculate: UIBC or Iron value is outside detectable level. Iron Sat Index 06/17/2024 10:02 AM HEAD PIECE ASSEMBLER [facility] Comment:Unable to calculate: UIBC or Iron value is outside detectable level. Blood VENOUS LINE / Unknown IVAD (Port) / Unknown 06/17/2024 6:16 AM HEAD PIECE ASSEMBLER 06/17/2024 6:27 AM HEAD PIECE ASSEMBLER us Drake Nina MD LAB - BLOOD ORDERABLES Final Result [facility] [place] Core Lab [address] [facility], [address] [place] [phone] * (ABNORMAL) Prolactin (06/16/2024 5:37 PM HEAD PIECE ASSEMBLER) Prolactin 55(H) 5 - 23 ng/mL 06/16/2024 6:24 PM HEAD PIECE ASSEMBLER [facility] Blood BLOOD SPECIMEN / Unknown Venipuncture / Unknown 06/16/2024 5:37 PM HEAD PIECE ASSEMBLER 06/16/2024 5:46 PM HEAD PIECE ASSEMBLER us Varghese Cipriano Schofield MD LAB - BLOOD ORDERABLE S Final Result LABORATORY [facility] [place] Core Lab [address] [facility], [address] [phone] * XR Chest Port 1 View (06/14/2024 8:46 AM HEAD PIECE ASSEMBLER) Anatomical Region Laterality Modality Chest Digital Radiogra phy Impressions 06/14/2024 8:59 AM HEAD PIECE ASSEMBLER Impression: Further increase in ill-defined opacity projecting over the right lower lung concerning for pneumonia. MARIO ALBERTO BLACKWOOD MD Narrative 06/14/2024 8:59 AM HEAD PIECE ASSEMBLER Exam: XR CHEST PORT 1 VIEW, [...] * Respiratory Panel PCR (06/12/2024 9:34 PM HEAD PIECE ASSEMBLER) Pathologist [facility] Adenovirus Not Detected Not Detected 06/12/2024 11:53 PM HEAD PIECE ASSEMBLER [facility] Coronavirus Not Detected Not Detected 06/12/2024 11:53 PM HEAD PIECE ASSEMBLER [facility] Comment:This test detects Co ronavirus 229E, HKU1, NL63 and OC43 but does not distinguish between them. It does not detect MERS ( Respiratory Syndrome), SARS (Severe Acute Respiratory Syndrome) or 2019-nCoV (Novel 2019) Coronavirus. Human Metapneumovirus Not Detected Not Detected 06/12/2024 11:53 PM HEAD PIECE ASSEMBLER [facility] Human Rhin/Enterovirus Not Detected Not Detected 06/12/2024 11:53 PM HEAD PIECE ASSEMBLER [facility] Influenza A Not Detected Not Detected 06/12/2024 11:53 PM HEAD PIECE ASSEMBLER [facility] Influenza A, H1 Not Detected Not Detected 06/12/2024 11:53 PM HEAD PIECE ASSEMBLER [facility] Influenza A 2009 H1N1 Not Detected Not Detected 06/12/2024 11:53 PM HEAD PIECE ASSEMBLER [facility] Influenza A, H3 Not Detected Not Detected 06/12/2024 11:53 PM HEAD PIECE ASSEMBLER [facility] Influenza B Not Detected Not Detected 06/12/2024 11:53 PM HEAD PIECE ASSEMBLER [facility] Parainfluenza Virus 1 Not Detected Not Detected 06/12/2024 11:53 PM HEAD PIECE ASSEMBLER [facility] Parainfluenza Virus 2 Not Detected Not Detected 06/12/2024 11:53 PM HEAD PIECE ASSEMBLER [facility] Parainfluenza Virus 3 Not Detected Not Detected 06/12/2024 11:53 PM HEAD PIECE ASSEMBLER [facility] Parainfluenza Virus 4 Not Detected Not Detected 06/12/2024 11:53 PM HEAD PIECE ASSEMBLER [facility] Respiratory Syncytial Virus A Not Detected Not Detected 06/12/2024 11:53 PM HEAD PIECE ASSEMBLER [facility] Respiratory Syncytial Virus B Not Detected Not Detected 06/12/2024 11:53 PM HEAD PIECE ASSEMBLER [facility] Chlamydia Pneumoniae Not Detected Not Detected 06/12/2024 11:53 PM HEAD PIECE ASSEMBLER [facility] Mycoplasma Pneumoniae Not Detected Not Detected 06/12/2024 11:53 PM HEAD PIECE ASSEMBLER [facility] Swab NASOPHARYNGEAL STRUCTURE / Unknown Non-blood Collection / Unknown 06/12/2024 9:34 PM HEAD PIECE ASSEMBLER 06/12/2024 9:47 PM HEAD PIECE ASSEMBLER Narrative [facility] - 06/12/2024 11:53 PM HEAD PIECE ASSEMBLER The ePlex Respiratory Panel is a qualitative nucleic acid, multiplex, in vitro diagnostic test for the simultaneous detection and identification of multiple respiratory viral and bacterial nucleic acids in nasopharyngeal swabs collected in viral transport media from individual exhibiting signs and symptoms of respiratory infection. The assay has received FDA approval for the testing of nasopharyngeal (THERAPEUTIC CASE MANAGER) swabs only. This test is used for clinical purposes and should not be regarded as investigational or for research. This laboratory is certified under the Clinical Laboratory Improvement Amendments of 1988 (CLIA-88) as qualified to perform high complexity clinical laboratory testing. us Abdelrahman Goddard MD LAB - MICRO GENERAL ORDERABLES Final Result [facility] Inf. Diseases Diag. Lab [address] [facility], [address] [place] [phone] * (ABNORMAL) Blood gas venous (06/12/2024 7:17 PM HEAD PIECE ASSEMBLER) pH Venous 7.38 7.32 - 7.43 06/12/2024 7:40 PM HEAD PIECE ASSEMBLER [facility] pCO2 Venous 42 40 - 50 mm Hg 06/12/2024 7:40 PM HEAD PIECE ASSEMBLER [facility] pO2 Venous 35 25 - 47 mm Hg 06/12/2024 7:40 PM HEAD PIECE ASSEMBLER [facility] Bicarbonate Venous 24 21 - 28 mmol/L 06/12/2024 7:40 PM HEAD PIECE ASSEMBLER [facility] Base Excess/Deficit Venous -0.9 -3.0 - 3.0 mmol/L 06/12/2024 7:40 PM HEAD PIECE ASSEMBLER [facility] FIO2 21 JARET 06/12/2024 7:40 PM HEAD PIECE ASSEMBLER [facility] Oxyhemoglobin Venous 61(L) 70 - 75 % 06/12/2024 7:40 PM HEAD PIECE ASSEMBLER [facility] O2 Sat, Venous 63.9(L) 70.0 - 75.0 % 06/12/2024 7:40 PM HEAD PIECE ASSEMBLER [facility] Blood, venous VENOUS LINE / Unknown Venipuncture / Unknown 06/12/2024 7:17 PM HEAD PIECE ASSEMBLER 06/12/2024 7:30 PM HEAD PIECE ASSEMBLER Narrative [facility] - 06/12/2024 7:40 PM HEAD PIECE ASSEMBLER In healthy individuals, oxyhemoglobin (O2Hb) and oxygen saturation (SO2) are approximately equal. In the presence of dyshemoglobins, oxyhemoglobin can be considerably lower than oxygen saturation. us Abdelrahman Goddard MD LAB - BLOOD ORDERABLES Final R esult [facility] Core Lab [address] [facility], [address] [phone] * ECG 12-LEAD WITH MUSE (LHE) (06/11/2024 9:04 PM HEAD PIECE ASSEMBLER) Only the most recent of12 resultswithin the time period is included. Systolic Blood Pressure mmHg RADIOLOGY RESULTS Diastolic Blood Pressure mmHg RADIOLOGY RESULTS Ventricular Rate 102 BPM RAD IOLOGY RESULTS Atrial Rate 102 BPM [address] Y RESULTS CT Interval 158 ms RADIOLOG Y RESULTS QRS Duration 78 ms RADIOLO GY RESULTS QT 348 ms RADIOLOGY RESULTS QTc 453 ms RADIOLOGY RESULTS P [place] 39 degrees RADIOLOGY RESULTS R AXIS 66 degrees RADIOLOGY RESULTS T [place] 33 degrees RADIOLOGY RESULTS Interpretation ECG Sinus tachycardia Nonspecific T wave abnormality Abnormal ECG When compared with ECG of 05-Jun-2024 11:40, No significant change was found Confirmed by SEE ED PROVIDER NOTE FOR, ECG INTERPRETATION (4000), supervising film or videotape editor SELMA GARRISON ([id number]) on 06/11/2024 9:05:27 PM RADIOLOGY RESULTS 06/11/2024 9:04 PM HEAD PIECE ASSEMBLER 06/11/2024 9:05 PM HEAD PIECE ASSEMBLER Deshawn Arredondo MD ECG ORDERABLES Edited Resu lt - Final Performing Organization Address City/[facility]/ZIP Co de Phone Number RADIOLOGY RESULTS * HGB Eval Reflex to ELP or RBC Solubility (05/29/2024 11:23 AM HEAD PIECE ASSEMBLER) Alpha Globin (HBA1 and HBA2) DD Bill Billed 05/31/2024 2:46 PM HEAD PIECE ASSEMBLER [facility] Comment: Performed By: [facility] [address] [place] [address] Fuel Testing Technician: Devon Healy MD, PhD CLIA Number: [id number] Blood VENOUS LINE / Unknown IVAD (Port) / Unknown 05/29/2024 11:23 AM HEAD PIECE ASSEMBLER 05/29/2024 11:30 AM HEAD PIECE ASSEMBLER us Case Samuel MD LAB CHARGE PERFORMABLES F inal Result Performing Organization Address [facility] de Phone Number [facility] [address] [place], [place] [address], [facility] [phone] * Bill Only- Sickle Solubility Bill (05/29/2024 11:23 AM HEAD PIECE ASSEMBLER) Pathologist [facility] Sickle Solubility Reflex Bill Billed 05/31/2024 2:46 PM HEAD PIECE ASSEMBLER [facility] Comment: Performed By: [facility] [address] [place] [address] Fuel Testing Technician: Devon Healy MD, PhD CLIA Number: [id number] Blood VENOUS LINE / Unknown IVAD (Port) / Unknown 05/29/2024 11:23 AM HEAD PIECE ASSEMBLER 05/29/2024 11:30 AM HEAD PIECE ASSEMBLER us Case Samuel MD LAB CHARGE PERFORMABLES F inal Result Performing Organization Address [facility] Co de Phone Number [facility] [address] [place] [address], [facility] [phone] * Genotype Red Blood Cell (05/29/2024 11:23 AM HEAD PIECE ASSEMBLER) Pathologist [facility] See Scanned Result GENOTYPE RED BLOOD CELL-Scanned 05/31/2024 10:16 AM HEAD PIECE ASSEMBLER [facility] Blood VENOUS LINE / Unknown IVAD (Port) / Unknown 05/29/2024 11:23 AM HEAD PIECE ASSEMBLER 05/29/2024 11:29 AM HEAD PIECE ASSEMBLER us Case Samuel MD LAB - BLOOD ORDERABLES Fi nal Result [facility] Blood [facility] [address] [phone] * (ABNORMAL) HGB Eval Reflex to ELP or RBC Solubility (05/29/2024 11:23 AM HEAD PIECE ASSEMBLER) Hemoglobin A 15.0(L) 95.0 - 97.9 % 05/31/2024 2:46 PM HEAD PIECE ASSEMBLER [facility] Hemoglobin A2 3.0 2.0 - 3.5 % 05/31/2024 2:46 PM HEAD PIECE ASSEMBLER [facility] Hemoglobin F 10.8(H) 0.0 - 2.1 % 05/31/2024 2:46 PM HEAD PIECE ASSEMBLER [facility] Hemoglobin S 71.2(H) 0.0 - 0.0 % 05/31/2024 2:46 PM HEAD PIECE ASSEMBLER [facility] Hemoglobin C 0.0 0.0 - 0.0 % 05/31/2024 2:46 PM HEAD PIECE ASSEMBLER [facility] Hemoglobin E 0.0 0.0 - 0.0 % 05/31/2024 2:46 PM HEAD PIECE ASSEMBLER [facility] Hemoglobin - Other 0.0 0.0 - 0.0 % 05/31/2024 2:46 PM HEAD PIECE ASSEMBLER [facility] Hemoglobin Evaluation See Note 05/31/2024 2:46 PM HEAD PIECE ASSEMBLER [facility] Comment: Impression: Hb S present [...] Globin (HBA1 and HBA2) Deletion/Duplication ([facility] test #[id number]) should be considered. Hb S/beta-plus thalassemia is typically characterized by more Hb S than Hb A with the presence of microcytosis. If microcytosis is present and Hb S/beta-plus thalassemia is suspected, Beta Globin (HBB) Sequencing ([facility] #[id number]) is suggested. Hemoglobin analysis should be offered [...] developed and its performance characteristics determined by [facility]. It has not been cleared or approved by the U.S. Food and Drug Administration. This test was performed in a CLIA-certified laboratory and is intended for clinical purposes. Sickle Cell Solubility Reflex Positive(A) 05/31/2024 2:46 PM HEAD PIECE ASSEMBLER [facility] Comment: INTERPRETIVE INFORMATION: Sickle Cell Solubility Reflex Not Performed: Solubility testing for Hemoglobin S not indicated. 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 Additional charges apply. Conf Previous: Positive for Hemoglobin S by HPLC. Solubility testing performed previously and not repeated with this submission. Hgb Capillary Electrophoresis Reflex Performed 05/31/2024 2:46 PM HEAD PIECE ASSEMBLER [facility] Comment: INTERPRETIVE INFORMATION: Hgb Capillary Electrophoresis Reflex Not Performed: Confirmation by Capillary Electrophoresis not indicated. Performed: Results confirmed by Capillary Electrophoresis. Additional charges apply. Conf Previous: Capillary Electrophoresis confirmation performed as part of a previous submission. Confirmation not repeated with this submission. Performed By: [facility] [address] [place] [address] Fuel Testing Technician: Devon Healy MD, PhD CLIA Number: [id number] Blood VENOUS LINE / Unknown IVAD (Port) / Unknown 05/29/2024 11:23 AM HEAD PIECE ASSEMBLER 05/29/2024 11:30 AM HEAD PIECE ASSEMBLER us Case Samuel MD LAB - BLOOD ORDERABLES Fi nal Result [facility] [address] [place] [address], [facility] [phone] * (ABNORMAL) Ferritin (05/29/2024 11:23 AM HEAD PIECE ASSEMBLER) Ferritin 1,559(H) 6 - 175 ng/mL 05/29/2024 12:43 PM HEAD PIECE ASSEMBLER [facility]ORE [facility] Blood VENOUS LINE / Unknown IVAD (Port) / Unknown 05/29/2024 11:23 AM HEAD PIECE ASSEMBLER 05/29/2024 11:29 AM HEAD PIECE ASSEMBLER us Case Samuel MD LAB - BLOOD ORDERABLES Fi nal Result [facility] CORE LAB [facility] [place] - [address] [facility] [place] [address] * Urine Culture (05/29/2024 11:23 AM HEAD PIECE ASSEMBLER) Culture <10,000 CFU/mL Mixture of Urogenital Vickie 05/30/2024 9:45 AM HEAD PIECE ASSEMBLER [facility] Urine URINE SPECIMEN OBTAINED BY CLEAN CATCH PROCEDURE / Unknown Non-blood Collection / Unknown 05/29/2024 11:23 AM HEAD PIECE ASSEMBLER 05/29/2024 11:41 AM HEAD PIECE ASSEMBLER us Case Samuel MD LAB - MICRO GENERAL ORDER SYD Final Result [facility] Inf. Diseases Diag. Lab [address] [facility], [address] [place] [address], [facility] * IR Procedure Note (05/25/2024 2:54 PM HEAD PIECE ASSEMBLER) Narrative Myron Michel MD - 05/25/2024 2:54 PM HEAD PIECE ASSEMBLER Myron Michel MD 05/25/2024 2:55 PM [facility] Procedure: IR Procedure Note Date/Time: 05/25/2024 [...] the procedure a time out was called Deep [place] Protocol: the Joint Commission [place] Protocol was followed Preparation: Patient was prepped and draped in usual sterile fashion ANESTHESIA Anesthesia: Local infiltration Local Anesthetic: Lidocaine 1% without epinephrine SEDATION Patient Sedated: Yes Sedation Type: Moderate (conscious) sedation Sedation: Fentanyl and midazolam Vital signs: Vital signs monitored during sedation See dictated procedure note for full details. Findings: Successful bilateral port placement apheresis on the right, 6 equatorial guinean smart port on the left Specimens: none Procedural Complications: None Condition: Stable Plan: 1 hour bedrest then okay to discharge PROCEDURE Describe Procedure: Successful bilateral port placement apheresis on the right, 6 equatorial guinean smart port on the left Patient Tolerance: Patient tolerated the procedure well with no immediate complications Length of time physician/provider present for 1:1 monitoring during sedation: 83-97 min us Myron Michel MD PROCEDURE/MINOR SURGICAL ORDERA BLES Final Result * IR Chest Port Placement > 5 Yrs of Age (05/25/2024 2:47 PM HEAD PIECE ASSEMBLER) Only the most recent of2 resultswithin the time period is included. Anatomical Region Laterality Modality Chest Radio Fluoroscop y Impressions 05/25/2024 5:26 PM HEAD PIECE ASSEMBLER IMPRESSION: Insertion of right-sided apheresis chest port, [...] mg Versed Sedation time: 97 minutes ATTENDING [id number] SEDATION TIME: less than 5 minutes. Access [...] placed: BD PowerFlow apheresis port Catheter size (Dominican): 9.6 Lumens: Single-lumen Power injectable: Yes Catheter [...] JASWINDER COOPER MD Narrative 05/25/2024 5:26 PM HEAD PIECE ASSEMBLER PROCEDURE: Venous port placement Procedural Personnel Attending [...] mg Versed Sedation time: 97 minutes ATTENDING [id number] SEDATION TIME: less than 5 minutes. Access [...] placed: BD PowerFlow apheresis port Catheter size (Dominican): 9.6 Lumens: Single-lumen Power injectable: Yes Catheter [...] terminal pro BNP outpatient (05/23/2024 9:02 PM HEAD PIECE ASSEMBLER) N Terminal Pro BNP Outpatient 74 0 - 450 pg/mL 05/23/2024 9:39 PM HEAD PIECE ASSEMBLER [facility] Comment: Reference range shown and results [...] Unknown Venipuncture / Unknown 05/23/2024 9:02 PM HEAD PIECE ASSEMBLER 05/23/2024 9:10 PM HEAD PIECE ASSEMBLER us Marilia Summers MD LAB - BLOOD ORDERABLES Final Result [facility] [address] [place] [address], [facility] * (ABNORMAL) CK total (05/19/2024 3:05 AM HEAD PIECE ASSEMBLER) CK 240(H) 26 - 192 U/L 05/19/2024 3:37 AM HEAD PIECE ASSEMBLER [facility] Blood VENOUS LINE / Unknown Venipuncture / Unknown 05/19/2024 3:05 AM HEAD PIECE ASSEMBLER 05/19/2024 3:18 AM HEAD PIECE ASSEMBLER us Marilia Summers MD LAB - BLOOD ORDERABLES Final Result [facility] [address] [place], [place] [id number], [place] from Last 3 Months [place] [id number] [place] [id number] [place] Advance Directives For more information, please contact: [phone] * Full Code (Latest Code Status on [...] continue PREVIOUSLY ORDERED code status Care Teams Workers Compensation Claims Analyst Relationship Specialty Start Date End Date Veronica Joseph MD [address] [place] [address] PCP - General Family Medicine 06/18/24 Mor Ramsey Medical Student 04/03/24 Case Samuel MD [address] [place] [address], [address] [place] [address] Assigned Pediatric Specialist Provider 05/18/24 Juhi Benson, RN Specialty Air Reduction Equipment Operator Hematology & Oncology 05/29/24
--- OUTSIDE RECORDS SUMMARY | 2024-07-28 21:39 | XMS_ITS | Encounter Summary ---
Author Organization [facility] Address [address] [place] [address]. 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 Gender Identity Not on file Sexual Orientation Not on file documented as of this encounter Plan of Treatment Upcoming Encounters Date Type Department Care Team (Late st Contact Info) Description 08/07/2024 7:15 AM CDT Lab [facility] Cancer [address] [phone] Case Samuel MD [address] [place] [address], [address] [address] 08/08/2024 8:00 AM CDT Appointment [facility] Advanced Treatment [address] [phone] Case Samuel MD [address] [place] [address], [address] [address] 10/30/2024 11:30 AM CDT Lab [facility] Cancer [address] [phone] Case Samuel MD [address] [place] [address], [address] [address] 10/30/2024 12:00 PM CDT Oncology Visit [facility] Cancer [address] [phone] Case Samuel MD [address] [facility] 484, [address] [place] [address] documented as of this encounter Goals Goal [...] in this encounter Care Teams Corporate Strategy Analyst Relationship Specialty Start Date End Date Veronica Joseph MD [address] [place] [address] PCP - General Family Medicine 06/18/24 Mro Ramsey Medical Student 04/03/24 Case Samuel MD [address] [facility] 484, [address] [place] [address] Assigned Pediatric Specialist Provider 05/18/24 Juhi Benson, RN Specialty Tool Designer Apprentice Hematology & Oncology 05/29/24 documented as of this encounter
--- OUTSIDE RECORDS SUMMARY | 2024-07-28 21:39 | XMS_ITS | Encounter Summary ---
Author Organization [facility] Address [address] [place] [address]. 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 Gender Identity Not on file Sexual Orientation Not on file documented as of this encounter Plan of Treatment Upcoming Encounters Date Type Department Care Team (Late st Contact Info) Description 08/07/2024 7:15 AM CDT Lab [facility] Cancer [address] [phone] Case Samuel MD [address] [place] [address], [address] [address] 08/08/2024 8:00 AM CDT Appointment [facility] Advanced Treatment [address] [phone] Case Samuel MD [address] [place] [address], [address] [address] 10/30/2024 11:30 AM CDT Lab [facility] Cancer [address] [phone] Case Samuel MD [address] [place] [address], [address] [address] 10/30/2024 12:00 PM CDT Oncology Visit [facility] Cancer [address] [phone] Case Samuel MD [address] [facility] 484, [address] [place] [address] documented as of this encounter Goals Goal [...] on filedocumented in this encounter Care Teams Bass String Winder Relationship Specialty Start Date End Date Veronica Joseph MD [address] [place] [address] PCP - General Family Medicine 06/18/24 Mor Ramsey Medical Student 04/03/24 Case Samuel MD [address] [facility] 484, [address] [place] [address] Assigned Pediatric Specialist Provider 05/18/24 Juhi Benson, RN Specialty Mining Plant Operator Hematology & Oncology 05/29/24 documented as of this encounter
--- OUTSIDE RECORDS SUMMARY | 2024-07-28 21:39 | XMS_ITS | Encounter Summary ---
Author Organization [facility] Address [address] [place] [address]. 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 Gender Identity Not on file Sexual Orientation Not on file documented as of this encounter Plan of Treatment Upcoming Encounters Date Type Department Care Team (Late st Contact Info) Description 08/07/2024 7:15 AM CDT Lab [facility] Cancer [address] [phone] Case Samuel MD [address] [place] [address], [address] [address] 08/08/2024 8:00 AM CDT Appointment [facility] Advanced Treatment [address] [phone] Case Samuel MD [address] [place] [address], [address] [address] 10/30/2024 11:30 AM CDT Lab [facility] Cancer [address] [phone] Case Samuel MD [address] [place] [address], [address] [address] 10/30/2024 12:00 PM CDT Oncology Visit [facility] [address] [phone] Case Samuel MD [address] [facility] 484, [address] [place] [address] documented as of this encounter Goals Goal [...] on filedocumented in this encounter Care Teams Cook Manager Relationship Specialty Start Date End Date Veronica Joseph MD [address] [place] [address] PCP - General Family Medicine 06/18/24 Mor Ramsey Medical Student 04/03/24 Case Samuel MD [address] [facility] 484, [address] [place] [address] Assigned Pediatric Specialist Provider 05/18/24 Juhi Benson, RN Specialty Grappler Hematology & Oncology 05/29/24 documented as of this encounter
--- OUTSIDE RECORDS SUMMARY | 2024-07-28 21:39 | XMS_ITS | Encounter Summary ---
Author Organization [facility] Address [address] [place] [address]. [place] [address] Care Team Providers Care Forklift Supervisor Name Role Phone RoxyElvirac Unavailable Unavailable Case Samuel MD Unavailable [phone] Juhi Benson RN Unavailable Unavailable Veronica Joseph MD Primary Care Provider [phone] Reason for Visit * Reason Comments Sickle Cell Pain Crisis Chest Pain Encounter Details Date Type Department Care Team ([facility] st Contact Info) Description 07/10/2024 7:00 PM CDT - 07/10/2024 11:30 PM CDT Emergency [facility] Emergency Department [address] [place] [phone] Alex Morton MD [address] [place] [address] Sickle cell pain crisis (H); Chest pain [...] on file 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 Recommend keeping your appointment with your snack bar cook next week. You can use Tylenol as needed for pain at home as well as your prescribed pain medication. Return back to the emergency room if you develop any new or worsening symptoms. * Attachments The following attachments cannot be sent through Care Everywhere. * Chest Pain (Austrian) * Sickle Cell Crisis (Austrian) documented in this encounter Medications at [...] 05/01/2024 naloxone (NARCAN) 4 MG/0.1ML nasal spray [place] 1 spray (4 mg) into one nostril [...] 07/10/2024 7:21 PM CDT ED Provider Note [facility] History Chief Complaint Patient presents with [...] they were out and about at the [employer]. She feels like she has a sickle [...] 2 VIEWS LOCATION: [facility] DATE: 07/10/2024 INDICATION: Left-sided chest pain; [...] Rate 83 BPM Atrial Rate 83 BPM TN Interval 134 ms QRS Duration 82 ms QT 364 ms QTc 427 ms P Verdi 10 degrees R AXIS 64 degrees T Verdi 20 degrees Interpretation ECG Sinus rhythm Normal ECG CBC with platelets differential Status: Abnormal Narrative The following orders were created for panel order CBC with platelets differential. Procedure Abnormality Status --------- ------ CBC with platelets and ...[[id number]] Abnormal Final result Please view results for [...] pain crisis (H) Chest pain JOSY Spencer [facility] EMERGENCY DEPARTMENT 07/10/2024 Ifrah Wills PA-C 07/10/24 [...] chest. Triage Assessment (Adult) Row Name 07/10/24 1750 Triage Assessment Airway WDL WDL Respiratory WDL Respiratory WDL WDL Skin Circulation/Temperature WDL Skin Circulation/Temperature WDL WDL Cardiac WDL Cardiac WDL WDL Peripheral/Neurovascular WDL Peripheral Neurovascular WDL WDL Cognitive/Neuro/Behavioral WDL Cognitive/Neuro/Behavioral WDL WDL documented in this encounter Plan of Treatment Upcoming Encounters Date Type Department Care Team (Late st Contact Info) Description 08/07/2024 7:15 AM CDT Lab [facility] Cancer [address] [phone] Case Samuel MD [address] [place] [address], [address] [place], [place] [address] 08/08/2024 8:00 AM CDT Appointment [facility] [address] [phone] Case Samuel MD [address] [place] [address], [address] [place] [address] 10/30/2024 11:30 AM CDT Lab [address] [phone] Case Samuel MD [address] [place] [address], [address] [place] [address] 10/30/2024 12:00 PM CDT Oncology Visit [facility] [address] [place] [phone] Case Smauel MD [address] [facility] 484, [address] [place] [address] documented as of this encounter Goals Goal [...] ORDERABLES Fin al Result Performing Organization Address City/[facility]/ZIP Co de Phone Number [facility] Core Lab [address] [facility], [address] [place] [phone] * HCG qualitative (blood) (07/10/2024 8:16 PM CDT) Pathologist [facility] hCG Serum Qualitative Negative Negative JARET 07/10/2024 8:55 PM CDT [facility] Comment:This test is for scr eening purposes. Results should be interpreted along with the clinical picture. Confirmation testing is available if warranted by ordering [id number], HCG Quantitative . Blood BLOOD SPECIMEN / Unknown Venipuncture / Unknown 07/10/2024 8:16 PM CDT 07/10/2024 8:20 PM CDT Ifrah Wills PA-C LAB - BLOOD ORDERABLES Fin al Result [facility] Lab [address] [facility], Room [address] [place] [phone] * Troponin T, High Sensitivity (07/10/2024 8:16 PM CDT) [facility] Troponin T, High Sensitivity <6 <=14 ng/L [...] BLOOD ORDERABLES Fin al Result [facility] Core Lab [address] [facility], Room [address] [place] [phone], [facility] * (ABNORMAL) Comprehensive metabolic panel (07/10/2024 8:16 PM CDT) [facility] Sodium 137 135 - 145 mmol/L 07/10/2024 [...] BLOOD ORDERABLES Fin al Result [facility] Core Lab [address] [facility] [address] Building, Room [address] [place] [phone], [facility] * Chest XR, PA & [...] CDT EXAM: XR CHEST 2 VIEWS LOCATION: [facility] DATE: 07/10/2024 INDICATION: Left-sided chest pain; sickle cell disease. COMPARISON: 07/05/2024. Procedure Note Enoc Bruce MD - 07/10/2024 EXAM: XR CHEST 2 VIEWS LOCATION: [facility] DATE: 07/10/2024 INDICATION: Left-sided chest pain; [...] Atrial Rate 83 BPM RADIOLOG Y RESULTS TN Interval 134 ms RADIOLOG Y RESULTS QRS Duration 82 ms RADIOLO GY RESULTS QT 364 ms RADIOLOGY RESULTS QTc 427 ms RADIOLOGY RESULTS P Verdi 10 degrees RADIOLOGY RESULTS R AXIS 64 degrees RADIOLOGY RESULTS T Verdi 20 degrees RADIOLOGY RESULTS Interpretation ECG Sinus rhythm Normal ECG Unconfirmed report - interpretation of this ECG is computer generated - see medical record for final interpretation Confirmed by - EMERGENCY ROOM, PHYSICIAN ([id number]), rewrite editor JESSICA CLANCY ([id number]) on 07/11/2024 7:54:21 AM [...] RN) documented in this encounter Care Teams Forklift Supervisor Relationship Specialty Start Date End Date Veronica Joseph MD [address] [place] [address] PCP - General Family Medicine 06/18/24 Mor Ramsey Medical Student 04/03/24 Case Samuel MD [address] [place] [address], [address] [place], [place] [address] Assigned Pediatric Specialist Provider 05/18/24 Juhi Benson, SOFIA Specialty Report Analyst Hematology & Oncology 05/29/24 documented as of this encounter
--- OUTSIDE RECORDS SUMMARY | 2024-07-28 21:39 | XMS_ITS | Encounter Summary ---
Author Organization [place] Address [address] [place] [address]. [place] [address] Care Team Providers Care Admissions Counselor Name Role Phone RoxyElvirac Unavailable Unavailable Case Samuel MD Unavailable [phone] Juhi Benson RN Unavailable Unavailable Veronica Joseph MD Primary Care Provider [phone] Reason for Visit * Reason Comments Back Pain Leg Pain bilateral Encounter Details Date Type Department Care Team ([facility] st Contact Info) Description 07/11/2024 3:03 PM CDT - 07/11/2024 7:35 PM CDT Emergency LTAC, located within 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 If you have [...] 05/01/2024 naloxone (NARCAN) 4 MG/0.1ML nasal spray [place] 1 spray (4 mg) into one nostril [...] 07/11/2024 3:05 PM CDT ED Provider Note [facility] History Chief Complaint Patient presents with Back [...] weekend and shewas very active at the [email or web address]. She feels that she overdid it. She [...] medical record was transcribed by Carmine Urias, Neurology Director, from a dictationdone by Ana Toney MD. [...] medical record was transcribed by Carmine Urias, Neurology Director, from a dictationdone by Ana Toney MD. I have reviewed the nursing notes. I have reviewed the findings, diagnosis, plan and need for follow up with the patient. Discharge Medication List as of 07/11/2024 7:31 PM Final diagnoses: Sickle cell pain crisis (H) I, Carmine Urias, am serving as a trained regional medical director to document services personally performedby Ana Toney MD, based on the provider's statements to me. Mercedes, Ana Toney MD, was physically present and have reviewed and verified the accuracy of this note documented by Carmine Urias. Ana Toney MD [facility] EMERGENCY DEPARTMENT 07/11/2024 Ana Toney MD [...] Info) Description 08/07/2024 7:15 AM CDT Lab [facility] Cancer [address] [phone] Case Samuel MD [address] [place] [address], [address] [place] [address] 08/08/2024 8:00 AM CDT Appointment [facility] [address] [phone] Case Samuel MD [address] [place] [address], [address] [place] [address] 10/30/2024 11:30 AM CDT Lab [facility] Cancer [address] [phone] Case Samuel MD [address] [facility] EMERGENCY DEPARTMENT 484, [address] [place], [place] [address] 10/30/2024 12:00 PM CDT Oncology Visit [facility] [address] [place] [phone] Case Samuel MD [address] [facility] EMERGENCY DEPARTMENT 484, [address] [place] [address] documented as of this encounter Goals Goal [...] testing is available if warranted by ordering [id number], HCG Quantitative . Urine URINE SPECIMEN OBTAINED BY CLEAN CATCH PROCEDURE / Unknown Non-blood Collection / Unknown 07/11/2024 6:08 PM CDT 07/11/2024 6:19 PM CDT Ana Toney MD LAB - URINE ORDERABLES Fi nal Result [facility] [place] Core Lab [address] [facility], Room [address] [place] [phone] * (ABNORMAL) UA with Microscopic [...] 07/11/2024 6:28 PM CDT [facility] Specific [place] Urine 1.011 1.003 - 1.035 07/11/2024 6:28 [...] URINE ORDERABLES Fi nal Result [facility] [place] Core Lab [address] [facility], Room [address] [place] [phone] * (ABNORMAL) Reticulocyte count (07/11/2024 4:15 PM CDT) Pathologist [facility] % Reticulocyte 7.1(H) 0.5 - 2.0 % 07/11/2024 8:21 PM CDT [facility] Absolute Reticulocyte 0.244(H) 0.025 - 0.095 10e6/uL 07/11/2024 8:21 PM CDT [facility] Blood BLOOD SPECIMEN / Unknown Venipuncture / Unknown 07/11/2024 4:15 PM CDT 07/11/2024 4:30 PM CDT Ana Toney MD LAB - BLOOD ORDERABLES Fi nal Result Performing Organization Address City/[facility]/ZIP Co de Phone Number [facility] [place] Core Lab [address] [facility], Room 3[address] [place] [phone] * Adult Type and Screen (07/11/2024 4:15 PM CDT) Pathologist [facility] ABO/RH(D) A POS 07/11/2024 3:14 PM CDT [facility] Antibody Screen Negative Negative 07/11/2024 3:14 PM CDT [facility] Comment:Current antibody scr een is negative. Patient has a history of antibody(ies). A delay in compatible red blood cells may occur. SPECIMEN EXPIRATION DATE [id number] 07/11/2024 3:14 PM CDT [facility] Blood BLOOD SPECIMEN / Unknown Venipuncture / Unknown 07/11/2024 4:15 PM CDT 07/11/2024 4:29 PM CDT Ana Toney MD LAB - BLOOD BANK TEST ORD ER Final Result Performing Organization Address [facility] de Phone Number BLOOD BANK [address] [place] [phone] * (ABNORMAL) CBC with platelets [...] BLOOD ORDERABLES Fi nal Result [facility] [place] Core Lab [address] [facility], Room [address] [place] [phone] * (ABNORMAL) Comprehensive metabolic panel (07/11/2024 4:15 [...] ORDERABLES Fi nal Result Performing Organization Address City/[facility]/ZIP Co de Phone Number LABORATORY [facility] Core Lab [address] [facility], [address] * (ABNORMAL) INR (07/11/2024 4:15 PM CDT) INR 1.35(H) 0.85 - 1.15 07/11/2024 4:50 PM CDT [facility] Blood BLOOD SPECIMEN / Unknown Venipuncture / Unknown 07/11/2024 4:15 PM CDT 07/11/2024 4:31 PM CDT us Ana Toney MD LAB - BLOOD ORDERABLES Fi nal Result LABORATORY [facility] Core Lab [address] [facility], Room [address] documented in this encounter Visit Diagnoses [...] RN) documented in this encounter Care Teams Admissions Counselor Relationship Specialty Start Date End Date Veronica Joseph MD [address] [place] [address] PCP - General Family Medicine 06/18/24 Mor Ramsey Medical Student 04/03/24 Case Samuel MD [address] [place] [address], [address] [place] [address] Assigned Pediatric Specialist Provider 05/18/24 Juih Benson, SOFIA Specialty Lens Coating Technician Hematology & Oncology 05/29/24 documented as of this encounter
--- OUTSIDE RECORDS SUMMARY | 2024-07-28 21:39 | XMS_ITS | Encounter Summary ---
Author Organization [place] Address [address] [place] [address]. [place] [address] Care Team Providers Care [employer] Management System Operator Name Role Phone RoxyElvirac Unavailable Unavailable Case Samuel MD Unavailable [phone] Juhi Benson RN Unavailable Unavailable Veronica Joseph MD Primary Care Provider [phone] Reason for Visit * Reason Comments Sickle Cell Pain Crisis Encounter Details Date Type Department Care Team ([facility] st Contact Info) Description 07/13/2024 10:02 PM CDT - 07/14/2024 1:55 AM CDT Emergency [facility] Emergency Department [address] [place] [phone] Jayden Adhikari MD [address] [place] [address] Sickle cell pain crisis (H) Discharge Disposition: [...] on file 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 This document has been checked and approved by the attending provider. Jayden Long MD, was physically present and have reviewed and verified the accuracy of this note documented by Dmitriy Steinberg emergency medical technician. Jayden Adhikari MD [facility]PART[facility] 07/13/2024 Jayden Adhikari MD 07/14/24 0146 * Oriana Marquis RN - 07/13/2024 9:46 PM CDT Came in to ED triage ambulatory. Came in due to sickle cell crisis. documented in this encounter Plan of Treatment Upcoming Encounters Date Type Department Care Team (Late st Contact Info) Description 08/07/2024 7:15 AM CDT Lab [facility] Cancer [address] [phone] Case Samuel MD [address] [place] [address], [address] [address] 08/08/2024 8:00 AM CDT Appointment [facility] [address] [phone] Case Samuel MD [address] [place] [address], [address] [id number] 10/30/2024 11:30 AM CDT Lab [facility] Cancer [address] [phone] Case Samuel MD [address] [place] [address], [address] [address] 10/30/2024 12:00 PM CDT Oncology Visit [facility] [address] [phone] Case Samuel MD [address] [place], [place] [address], [address] [address] documented as of this encounter Goals Goal [...] BLOOD ORDERABLES Final Result [facility] [place] Core Lab [address] [facility], Room [address] [place] [phone], [facility] * (ABNORMAL) CBC with [...] BLOOD ORDERABLES Final Result [facility] [place] Core Lab [address] [facility], Room [address] [place] [phone], [facility] * (ABNORMAL) Comprehensive metabolic panel (07/13/2024 11:21 PM CDT) Pathologist [facility] Emergency Department Sodium 136 135 - 145 mmol/L 07/14/2024 [...] - BLOOD ORDERABLES Final Result UR LABORATORY [facility] Acute Care Lab [address] [facility], [address] [place] [phone], [facility] Core Lab [address] [facility], Room [address] [place] [address], [facility] * (ABNORMAL) Reticulocyte count (07/13/2024 11:21 PM CDT) Pathologist [facility] Emergency Department % Reticulocyte 6.6(H) 0.5 - 2.0 % 07/13/2024 11:39 PM CDT [facility] Absolute Reticulocyte 0.198(H) 0.025 - 0.095 10e6/uL 07/13/2024 11:39 PM CDT [facility] Blood BLOOD SPECIMEN / Unknown Venipuncture / Unknown 07/13/2024 11:21 PM CDT 07/13/2024 11:33 PM CDT us Jayden Adhikari MD LAB - BLOOD ORDERABLES Final Result [facility] [place] Core Lab [address] [facility], Room [address] [place] [address], [facility] documented in this encounter [...] SOFIA) documented in this encounter Care Teams Voyage Management System Operator Relationship Specialty Start Date End Date Veronica Joseph MD [address] [place] [address] PCP - General Family Medicine 06/18/24 Mor Ramsey Medical Student 04/03/24 Case Samuel MD [address] [place] [address], [address] [place], [place] [address] Assigned Pediatric Specialist Provider 05/18/24 Juhi Benson, SOFIA Specialty Bedspread Cutter Hand Hematology & Oncology 05/29/24 documented as of this encounter
--- OUTSIDE RECORDS SUMMARY | 2024-07-28 21:39 | XMS_ITS | Encounter Summary ---
Author Organization [place] Address [address] [place] [address]. [place] [address] Care Team Providers Care Boring Mill Set Up Operator Vertical Name Role Phone Roxy Mor Unavailable Unavailable Case Samuel MD Unavailable [phone] Juhi Benson RN Unavailable Unavailable Veronica Joseph MD Primary Care Provider [phone] Reason for Visit * Reason Comments Oncology Clinic Visit Sickle cell pain c risis Port Draw Labs drawn via port by RN in lab. 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 As outlined in the HPI from her initial visit they then moved to [place] where she delivered her now 2-year-old daughter Chanda. It was only within the last year that they moved to [place] to be closer to her boyfriend's family with a goal of having increased care for their daughter. Gianna currently stays at home with her daughter. Her boyfriend works frequently. She anticipates that his grandmother will be returning from [place] where she spends the winter within the [...] She said that she was born in [place] but moved throughout her childhood because her dad was in the . She is the youngest of 9 children she said, though she is the only one with sickle cell disease. Among other places, she was living in [place] for a time and then moved to [place]. It was there that shemet her boyfriend. She ultimately moved back to [place] and he came with her. It was there that they had a daughter Chanda, now 2 years old. That was a difficult for her, and she feelslike she never wants to be again. She was living in [place], [place] and receiving care at [facility], though she did not get the sense that household appliance mechanic there was super comfortable with sickle cell [...] about 3 weeks ago. She moved to [place] about 2 months ago. Her boyfriend is [...] was getting scheduled, they were moving to [place]. She reports that she has had a [...] them both so she can be a trrd-qk-ammo mom. Sickle Cell Disease Comprehensive Checklist Stroke/silent [...] titrate as needed and notify the primary household appliance mechanic via Parrable message if changes to the plan below are needed. Also please note that there is a mental health component to her pain, particularly in terms of adjustment to [place] which is likely to make her pain worse.. 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 Recently moved to [place] from [place], [place]. 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 [...] emergency department for pain control, initially at [facility] and more recently at [facility]. today we discussed the contribution of [...] voices satisfaction withbeing able to be a tdnv-on-tiib mom and care for her daughter she [...] -Likely approaching cholecystectomy [facility] -No recent biliary colic -GI referral for ongoing management. History of left hip AVN with hairline fracture -Documentation dating back to at least 2020 describing findings -Continued ambulation as able to keep the muscles around the hip and femur strong. -Orthopedic stock replenisher referral previously placed -Severity is unclear-has been [...] Provider was notified. Pharmacy name entered into GroupZoom: [facility] [address] [place], [place] - [phone] - [address] Frailty Screening: Is the patient here [...] Contact Info) Description 08/07/2024 7:15 AM CDT [facility] [address] [place] [phone] Case Samuel MD [address] [facility] [address] [place] [address] 08/08/2024 8:00 AM CDT Appointment [facility] Advanced Treatment [address] [phone] Case Samuel MD [address] [facility] [address], [address] [place] [address] 10/30/2024 11:30 AM CDT Lab [facility] [address] [phone] Case Samuel MD [address] [place] [address] [address], [address] [place] [address] 10/30/2024 12:00 PM CDT Oncology Visit [facility] [address] [phone] Case Samuel MD [address] [place] [address] [address], [address] [place] [address] documented as of this encounter Goals Goal [...] Platelet Morphology (07/17/2024 1:38 PM CDT) Pathologist [facility] RBC Morphology Confirmed RBC Indices 07/17/2024 2:31 PM CDT [facility] - CORE LAB Platelet Assessment Automated Count Confirmed. Platelet morphology is normal. Automated Count Confirmed. Platelet morphology is normal. 07/17/2024 2:31 PM CDT [facility] - CORE LAB Elliptocytes Slight(A) None Seen 07/17/2024 2:31 PM CDT [facility] - CORE LAB Ziegler-Rand Bodies Present(A) None Seen 07/17/2024 2:31 PM CDT [facility] - CORE LAB Target Cells Slight(A) None Seen 07/17/2024 2:31 PM CDT [facility] - CORE LAB Blood VENOUS LINE / Unknown IVAD (Port) / Unknown 07/17/2024 1:38 PM CDT 07/17/2024 1:43 PM CDT us Case Samuel MD LAB - BLOOD ORDERABLES Fi nal Result [facility] - CORE LAB [facility] [place] [address] [facility] 1st [place] [address] * (ABNORMAL) CBC with platelets and differential (07/17/2024 1:38 PM CDT) Pathologist [facility] WBC Count 8.7 4.0 - 11.0 10e3/uL 07/17/2024 2:31 PM CDT [facility] - CORE LAB RBC Count 2.96(L) 3.80 - 5.20 10e6/uL 07/17/2024 2:31 PM CDT [facility] - CORE LAB Hemoglobin 9.3(L) 11.7 - 15.7 g/dL 07/17/2024 2:31 PM CDT [facility] - CORE LAB Hematocrit 27.3(L) 35.0 - 47.0 % 07/17/2024 2:31 PM CDT [facility] - CORE LAB MCV 92 78 - 100 fL 07/17/2024 2:31 PM CDT [facility] - CORE LAB MCH 31.4 26.5 - 33.0 pg 07/17/2024 2:31 PM CDT [facility] - CORE LAB MCHC 34.1 31.5 - 36.5 g/dL 07/17/2024 2:31 PM CDT [facility] - CORE LAB RDW 15.9(H) 10.0 - 15.0 % 07/17/2024 2:31 PM CDT [facility] - CORE LAB Platelet Count 451(H) 150 - 450 10e3/uL 07/17/2024 2:31 PM CDT [facility] - CORE [facility] % Neutrophils 60 % 07/17/2024 2:31 PM CDT [facility]ORE [facility] % Lymphocytes 17 % 07/17/2024 2:31 PM CDT [facility]ORE [facility] % Monocytes 20 % 07/17/2024 2:31 PM CDT [facility]ORE [facility] % Eosinophils 1 % 07/17/2024 2:31 PM CDT [facility] % Basophils 1 % 07/17/2024 2:31 PM CDT [facility] % Immature Granulocytes 1 % 07/17/2024 2:31 PM CDT [facility] - CORE LAB NRBCs per 100 WBC 0 <1 /100 025 2:31 PM CDT [facility] - CORE LAB Absolute Neutrophils 5.2 1.6 - 8.3 10e3/uL 07/17/2024 2:31 PM CDT [facility] - [facility]ORE [facility] Absolute Lymphocytes 1.5 0.8 - 5.3 10e3/uL 07/17/2024 2:31 PM CDT [facility] - CORE [facility] Absolute Monocytes 1.7(H) 0.0 - 1.3 10e3/uL 07/17/2024 2:31 PM CDT [facility] - [facility]ORE LAB Absolute Eosinophils 0.1 0.0 - 0.7 10e3/uL 07/17/2024 2:31 PM CDT [facility] - [facility]ORE [facility] Absolute Basophils 0.1 0.0 - 0.2 10e3/uL 07/17/2024 2:31 PM CDT [facility] - [facility]ORE [facility] Absolute Immature Granulocytes 0.0 <=0.4 10e3/uL 07/17/2024 2:31 PM CDT [facility] - CORE LAB Absolute NRBCs 0.0 10e3/uL 07/17/2024 2:31 PM CDT [facility] - [facility]ORE LAB Blood VENOUS LINE / Unknown IVAD (Port) / Unknown 07/17/2024 1:38 PM CDT 07/17/2024 1:43 PM CDT us Case Samuel MD LAB - BLOOD ORDERABLES Fi nal Result [facility] - CORE LAB [facility] Clinics and Surgery [facility] [address] [place] [address] 1st [place] [address] * (ABNORMAL) Basic metabolic panel (07/17/2024 1:38 PM CDT) Sodium 137 135 - 145 mmol/L 07/17/2024 2:16 PM CDT [facility] - [facility]ORE LAB Potassium 4.5 3.4 - 5.3 mmol/L 07/17/2024 2:16 PM CDT [facility] LAB Chloride 108(H) 98 - 107 mmol/L 07/17/2024 2:16 PM CDT [facility] - [facility]ORE LAB Carbon Dioxide (CO2) 21(L) 22 - 29 mmol/L 07/17/2024 2:16 PM CDT [facility] LAB Anion Gap 8 7 - 15 mmol/L 07/17/2024 2:16 PM CDT [facility] Urea Nitrogen 8.4 6.0 - 20.0 mg/dL 07/17/2024 2:16 PM CDT [facility] - [facility]ORE LAB Creatinine 0.67 0.51 - 0.95 mg/dL 07/17/2024 2:16 PM CDT [facility]ORE [facility] GFR Estimate >90 >60 mL/min/1.7 3m2 07/17/2024 2:16 PM CDT [facility] - CORE LAB Comment:eGFR calculated usin 2020 CKD-EPI equation. Calcium 9.1 8.8 - 10.4 mg/dL 07/17/2024 2:16 PM CDT [facility] - [facility]ORE LAB Glucose 96 70 - 99 mg/dL 07/17/2024 2:16 PM CDT [facility] - CORE LAB Blood VENOUS LINE / Unknown IVAD (Port) / Unknown 07/17/2024 1:38 PM CDT 07/17/2024 1:43 PM CDT us Case Samuel MD LAB - BLOOD ORDERABLES Fi nal Result [facility] - CORE LAB [facility] [place] [address] [facility] 1st [place] [address] documented in this encounter Visit Diagnoses Diagnosis [...] mLs documented in this encounter Care Teams Boring Mill Set Up Operator Vertical Relationship Specialty Start Date End Date Veronica Joseph MD [address] [place] [address] PCP - General Family Medicine 06/18/24 Mor Ramsey Medical Student 04/03/24 Case Samuel MD [address] [place] [address] [address], [address] [place], [place] [id number] Assigned Pediatric Specialist Provider 05/18/24 Juhi Benson, RN Specialty Auto Body Worker Hematology & Oncology 05/29/24 documented as of this encounter
--- NOTE | 2024-07-28 22:15 | ED.CHESTPAIN ---
HPI - Chest Pain General Date Seen: 07/28/24 Chief Complaint: Unspecified Complaint, Adult Stated Complaint: Sickle Cell crisis Time Seen by Provider: 07/28/24 21:00 Source: patient and family Mode of arrival: ambulatory Limitations: no limitations History of Present Illness HPI narrative: Patient is a 29-year-old female presents here with sickle cell crisis. She has a history of sickle cell disease is followed by [facility] for this, she last had a transfusion, on July 17, she presents tonight with back pain, along with chest pain. This is been going on for approximately 3-4 hours, and she took Dilaudid 4 mg at home with no improvement. Notes no nausea vomiting no loss of vision, no radiation of pain and no shortness of breath associated with this. She has long history of sickle cell disease. In multiple places around the [place], with avascular necrosis, functional asplenic among other things. Related Data Home Medications ?Medication ?Instructions ?Recorded ?Confirmed hydromorphone 2 mg tablet 4 mg PO Q4H PRN pain 04/02/24 04/08/24 folic acid 2 tab PO DAILY 04/04/24 04/08/24 hydroxyurea (sickle cell) 1,000 mg PO BID 04/04/24 04/08/24 Previous Rx's ?Medication ?Instructions ?Recorded azithromycin 250 mg tablet 250 mg PO DAILY 4 days #4 tabs 04/08/24 cefdinir 300 mg capsule 300 mg PO BID #20 caps 04/08/24 cefdinir 300 mg capsule 300 mg PO BID 107 days #214 caps 04/08/24 Allergies Allergy/AdvReac Type Severity Reaction Status Date / Time cashew nut Allergy Verified 06/30/24 22:50 ketorolac (From Toradol) Allergy Verified 06/30/24 22:50 tramadol Allergy Verified 06/30/24 22:50 banana AdvReac Verified 06/30/24 22:50 latex AdvReac Verified 06/30/24 22:50 Review of Systems Status of ROS Reports: 10 or more systems reviewed and unremarkable except as noted in History and below [facility] Medical History Sickle cell pain crisis ?D57.00 - Hb-SS disease with crisis, unspecified (ICD-10) Sickle cell anemia ?D57.1 - Sickle-cell disease without crisis (ICD-10) Social History Smoking Status: Never smoker Do you use any of these nicotine containing products: None How often do you have a drink containing alcohol: never AUDIT-C Alcohol total score: 0 Non-prescribed substance use: opiods/painkillers service: No Exam Narrative Exam Narrative: On examination here she is in no apparent distress she is speaking to me normally she is alert oriented x3 her pupils equal round reactive to light there is no scleral icterus redness her TMs are normal oropharynx is normal her neck is supple her chest is clear bilaterally with no wheezing crackles noted heart sounds are normal her abdomen is soft there is no guarding no organomegaly bowel sounds are normal her back is nontender she is able sit up walk around the room forward flex and extend normally. SLR is are negative to 90? skin reveals no petechiae rashes. Const Vital Signs, click to edit/add: Vital Signs - 24 hr 07/28/24 20:46 07/28/24 20:55 Temperature 97.3 F L Pulse Rate [Left Pulse Oximeter] 83 Respiratory Rate 16 Respiratory Rate [Left Leg] 16 Respiratory Rate [Lower Back] 16 Respiratory Rate [Right Leg] 16 Blood Pressure [Right Upper Arm] 110/67 Pulse Oximetry 99 Oxygen Delivery Method Room Air Documenting provider has reviewed patient's vital signs: yes Course Vital Signs Vital signs: Initial Vital Signs Temperature 97.3 F L 07/28/24 20:46 Temperature Source Temporal Artery Scan 07/28/24 20:46 Pulse Rate 83 07/28/24 20:46 Pulse Rhythm Regular 07/28/24 20:46 Respiratory Rate 16 07/28/24 20:46 Blood Pressure 110/67 07/28/24 20:46 Blood Pressure Mean 81 07/28/24 20:46 Blood Pressure Position Sitting 07/28/24 20:46 Pulse Oximetry 99 07/28/24 20:46 Oxygen Delivery Method Room Air 07/28/24 20:46 Vital Signs Temperature 97.3 F L 07/28/24 20:46 Pulse Rate 83 07/28/24 20:46 Respiratory Rate 16 07/28/24 20:46 Blood Pressure 110/67 07/28/24 20:46 Pulse Oximetry 99 07/28/24 20:46 Oxygen Delivery Method Room Air 07/28/24 20:46 Temperature 97.3 F L 07/28/24 20:46 Pulse Rate 83 07/28/24 20:46 Respiratory Rate 16 07/28/24 20:55 Blood Pressure 110/67 07/28/24 20:46 Pulse Oximetry 99 07/28/24 20:46 Oxygen Delivery Method Room Air 07/28/24 20:46 MDM - Chest Pain MDM Narrative Medical decision making narrative: During the evaluation of this patient I considered multiple differential diagnosis is. The life-threatening differential diagnosis include coronary disease/OK, pulmonary embolism, pneumothorax, pneumonia, and aortic dissection. Other differential diagnosis included but were not limited to pericarditis, myocarditis, chest wall pain, GERD, esophageal rupture, rib fracture contusion, pleurisy, as well as other etiologies. Medical Records Data Attestation: I reviewed the patient's medical records. Medical records narrative: I reviewed the patient's records on the [facility] system, she has been in the emergency room every day for the past 6 weeks. There may be 2 or 3 days during that time. She did in some time she was in 2 different ERs. Along with clinic visits. A couple the visits in the [place] system she was offered admission, but declined these, when I asked her about these she said that she has young children was unable to get help for them. But clearly she is here tonight at 9:00 p.m.. I reviewed the [facility], she gets Dilaudid 4 mg 45 tablets every 2 weeks. There is no other prescriptions noted. I reviewed the note from the sinter press operator call so. About her transfusion they were worried about her multiple visits to the ER, I spoke to her and said, given her normal vital signs I will happily work this up, with for chest pain and, rule out other causes. We will however not use IV Dilaudid tonight. I do believe there is anxiety here, addiction, along with other behaviors. This is clearly on other visits and other health systems I reviewed in her [facility] chart. She was very polite, and when I said this she said she would like to leave, she does not feel that she needed to be worked up and felt that she was actually doing pretty well. Discharge Plan Discharge Clinical Impression: Chest pain, Chronic pain Patient Disposition: Home, Self-Care Condition: Stable Instructions: Chronic Pain (ED) Additional Instructions: As explained to you I will do a full workup, but we will hold off on using Dilaudid until we can find an abnormality here. Do have concerns with visits every day for the past 2 months, I think there is more playing into this than just your sickle cell crisis, with both anxiety, and chronic pain. You have chosen to leave, without having anything done. And that is your right. He may continue to use her Dilaudid. Activity Level: Light activity Prescriptions: No Action cefdinir 300 mg capsule 300 mg PO BID 107 Days Qty: 214 0RF azithromycin 250 mg tablet 250 mg PO DAILY 4 Days Qty: 4 0RF Rx Instructions: first dose was given in ER 04/08/24. start on day 2 of therapy cefdinir 300 mg capsule 300 mg PO BID Qty: 20 0RF hydromorphone 2 mg tablet 4 mg PO Q4H PRN (Reason: pain) hydroxyurea (sickle cell) 1,000 mg PO BID folic acid 2 tab PO DAILY Rx Instructions: 2mg Follow Up/Referrals: Provider,Not a Local [Primary Care Provider] - Stand Alone Forms: MyHealth Info Instructions
== END 2024-07-28 21:32 | disposition home or self-care (01) ==
LOC: ED 21:31
PROVIDERS: Emergency Provider Family Medicine
DX: R07.9 Chest pain, unspecified (principal); G89.29 Other chronic pain; Z53.29 Procedure and treatment not carried out because of patient's decision for other reasons
CPT/HCPCS: 99281; 99282; 99285

== ENCOUNTER 2025-02-09 01:46 | Emergency (ER) | payer BC, SELFPAY ==
--- OUTSIDE RECORDS SUMMARY | 2024-03-21 06:03 | XMS_ITS | Continuity of Care Document ---
Author Organization [facility] Address [address] [address] [place] [address] Phone Care Team Providers Care Automation Consultant Name Role Phone Romy Patterson MD Unavailable Unavailable Advance Directives Directive Yes / No Effective Date File Name No Information Encounters Encounter Description Practice Location Reason(s) For Visit Diagnoses Date Provider Providers Copied on Encounter [facility], [address] [address], [place], [place], [id number], tel:[phone] [facility] No Information Leonardo Stanton. [address] [place] [address], [place], [place], [id number], [place]. tel:[phone] [facility], [address] [address], [place], [place], [id number], tel:[phone] [facility] No Information Jose Antonio Cohen. [address] [place] [address], [place], [place], [id number], [place]. tel:[phone] Family History Family Member Type Diagnosis Age At Onset No Information Immunizations Vaccine Date Status Comments SARS-COV-2 (COVID-19) vaccin e, mRNA, spike protein, LNP, preservative free, 50 mcg/0.5 mL dose administered Note: [facility] bi-direct ional interface ; Source: Other Registry Afluria Qd administered Note: [facility] bi-directional interface ; Source: Other Registry SARS-COV-2 (COVID-19) vaccin e, mRNA, spike protein, LNP, preservative free, 100 mcg/0.5mL dose or 50 mcg/0.25mL dose administered Note: [facility] bi -directional interface ; Source: Other Registry SARS-COV-2 (COVID-19) vaccin e, mRNA, spike protein, LNP, preservative free, 100 mcg/0.5mL dose or 50 mcg/0.25mL dose administered Note: [facility] bi -directional interface ; Source: Other Registry SARS-COV-2 (COVID-19) vaccin e, mRNA, spike protein, LNP, preservative free, 100 mcg/0.5mL dose or 50 mcg/0.25mL dose administered Note: [facility] bi -directional interface ; Source: Other Registry Afluria Qd administered Note: [facility] bi-directional interface ; Source: Other Registry Influenza, split virus, trivalent, injectable, preservative free administered Note: [facility] bi-direct ional interface ; Source: Other Registry Influenza, split virus, trivalent, injectable, preservative free administered Note: [facility] bi-direct ional interface ; Source: Other Registry meningococcal polysaccharide (groups A, C, Y and W-135) diphtheria toxoid conjugate vaccine (MCV4P) administered Note: [facility] bi-direct ional interface ; Source: Other Registry Influenza, split virus, trivalent, injectable, contains preservative administered Note: [facility] bi-direct ional interface ; Source: Other Registry Novel [id number], all formulations administered Note: [facility] bi-direct ional interface ; Source: Other Registry Havrix pediatric administered Note: [facility] bi-directional interface ; Source: Other Registry human papilloma virus vaccin e, quadrivalent administered Note: [facility] bi-direct ional interface ; Source: Other Registry influenza virus vaccine, unspecified formulation administered Note: [facility] bi-di rectional interface ; Source: Other Registry human papilloma virus vaccin e, quadrivalent administered Note: [facility] bi-direct ional interface ; Source: Other Registry varicella virus vaccine administered Note : [facility] bi-directional interface ; Source: Other Registry human papilloma virus vaccin e, quadrivalent administered Note: [facility] bi-direct ional interface ; Source: Other Registry Havrix pediatric administered Note: [facility] bi-directional interface ; Source: Other Registry Influenza, split virus, trivalent, injectable, contains preservative administered Note: [facility] bi-direct ional interface ; Source: Other Registry tetanus toxoid, reduced diphtheria toxoid, and acellular pertussis vaccine, adsorbed administered Note: [facility] b i-directional interface ; Source: Other Registry meningococcal polysaccharide (groups A, C, Y and W-135) diphtheria toxoid conjugate vaccine (MCV4P) administered Note: [facility] bi-direct ional interface ; Source: Other Registry Influenza, split virus, trivalent, injectable, contains preservative administered Note: [facility] bi-direct ional interface ; Source: Other Registry measles, mumps and rubella v irus vaccine administered Note: [facility] bi-direct ional interface ; Source: Other Registry diphtheria, tetanus toxoids and acellular pertussis vaccine administered Note: [facility] b i-directional interface ; Source: Other Registry varicella virus vaccine administered Note : [facility] bi-directional interface ; Source: Other Registry diphtheria, tetanus toxoids and acellular pertussis vaccine administered Note: [facility] b i-directional interface ; Source: Other Registry hepatitis B vaccine, unspeci fied formulation administered Note: [facility] bi-direct ional interface ; Source: Other Registry Haemophilus influenzae type b vaccine, conjugate unspecified formulation administered Note: [facility] bi-direct ional interface ; Source: Other Registry measles, mumps and rubella v irus vaccine administered Note: [facility] bi-direct ional interface ; Source: Other Registry diphtheria, tetanus toxoids and acellular pertussis vaccine administered Note: [facility] b i-directional interface ; Source: Other Registry Haemophilus influenzae type b vaccine, conjugate unspecified formulation administered Note: [facility] bi-direct ional interface ; Source: Other Registry hepatitis B vaccine, unspeci fied formulation administered Note: [facility] bi-direct ional interface ; Source: Other Registry diphtheria, tetanus toxoids and acellular pertussis vaccine administered Note: [employer] b i-directional interface ; Source: Other Registry Haemophilus influenzae type b vaccine, conjugate unspecified formulation administered Note: [facility] bi-direct ional interface ; Source: Other Registry hepatitis B vaccine, unspeci fied formulation administered Note: [facility] bi-direct ional interface ; Source: Other Registry diphtheria, tetanus toxoids and acellular pertussis vaccine administered Note: [employer] b i-directional interface ; Source: Other Registry Payers Payer name Insurance type Covered republican ID Authoriza tion(s) No Information Social History Type Description Quantity Date Captured Comments Sex Female Smoking Status No Information Chief Complaint And Reason For Visit No Information Reason For Referral Reason For Referral No Information History Of Present Illness Encounter Date Complaint History Of Prese nt Illness No Information Functional Status Date Functional Assessmen t No Information Instructions Date Instruction Additional Infor mation No Information Assessments Type Assessment Date No Information Patient Care Teams Name Effective Dates (start - stop) Status Members No Information
--- OUTSIDE RECORDS SUMMARY | 2024-03-21 06:03 | XMS_ITS | Continuity of Care Document ---
Author Organization [facility] Address [address] [address] [place] [address] Phone Care Team Providers Care Charge Poster Name Role Phone Romy Patterson MD Unavailable Unavailable Advance Directives Directive Yes / No Effective Date File Name No Information Encounters Encounter Description Practice Location Reason(s) For Visit Diagnoses Date Provider Providers Copied on Encounter [facility], [address] [address], [place], [place], [id number], tel:[phone] [facility] No Information Leonardo Stanton. [address] [place] [address], [place], [place], [id number], [place]. tel:[phone] [facility], [address] [address], [place], [place], [id number], tel:[phone] [facility] No Information Jose Antonio Cohen. [address] [place] [address], [place], [place], [id number], [place]. tel:[phone] Family History Family Member Type Diagnosis Age [...] ional interface ; Source: Other Registry Novel [id number], all formulations administered Note: [facility] bi-direct ional [...] toxoids and acellular pertussis vaccine administered Note: [employer] b i-directional interface ; Source: Other Registry Haemophilus influenzae type b vaccine, conjugate unspecified formulation administered Note: [facility] bi-direct ional interface ; Source: Other Registry hepatitis B vaccine, unspeci fied formulation administered Note: [facility] bi-direct ional interface ; Source: Other Registry diphtheria, tetanus toxoids and acellular pertussis vaccine administered Note: [employer] b i-directional interface ; Source: Other Registry [...]
--- OUTSIDE RECORDS SUMMARY | 2024-12-06 09:30 | XMS_ITS | Encounter Summary ---
Author Organization [facility] Address [address] [place] [address] Care Team Providers Care New Business Clerk Name Role Phone Roxy Mor Unavailable Unavailable Case Samuel MD Unavailable [phone] Juhi Benson RN Unavailable Unavailable Veronica Joseph MD Primary Care Provider [phone] Olinda Vora APRN CERTIFIED WELLNESS PROGRAM COORDINATOR Unavailable [phone] Stiven Stanley Unavailable Star Galarza MD Unavailable [phone] Aliyah Hudson RN Unavailable Unavailable Enrico Mckoy RN Unavailable UnavailNorth Alejandro RN Unavailable Unavailable Reason for Visit * Home Infusion Authorization (Routine) - Authorized Specialty Diagnoses / Procedures Referred By Contac t Referred To Contact [facility] [address] [place] [phone] Phone: tel: fax: Referral ID Status Reason Start Date Expiration Date V isits Requested Visits Authorized [id number] Authorized 11/06/2024 11/06/2025 [id number] Encounter Details Date Type Department Care Team (Late st Contact Info) Description 12/06/2024 9:30 AM CDT Home Care Visit [facility] [address] [place] [phone] Yane Mcmanus, SOFIA Social History Tobacco Use Types Packs/Day Years Used Date Smoking Tobacco: Never Smokeless Tobacco: Never Alcohol Use Standard Drinks/Week Comments Not Currently 0 (1 standard drink = 0.6 oz pur e alcohol) Food Insecurity Answer Date Recorded Within the past 12 months, d id you worry that your food would run out before you got money to buy more? No 11/09/2024 Within the past 12 months, d id the food you bought just not last and you didn t have money to get more? No 11/09/2024 Housing Stability Answer Date Recorded Do you have housing? (Sae montes is defined as stable permanent housing and does not include staying outside in a car, in a tent, in an abandoned building, in an overnight retirement, or couch-surfing.) Yes 11/09/2024 Are you worried about losing your housing? No 11/09/2024 Financial Resource Strain Answer Date R ecorded Within the past 12 months, h ave you or your family members you live with been unable to get utilities (heat, electricity) when it was really needed? No 11/09/2024 Transportation Needs Answer Date Record ed Within the past 12 months, h as lack of transportation kept you from medical appointments, getting your medicines, non-medical meetings or appointments, work, or from getting things that you need? No 11/09/2024 Interpersonal Safety Answer Date Record ed Do you feel physically and e motionally safe where you currently live? Yes 12/02/2024 Within the past 12 months, h ave you been hit, slapped, kicked or otherwise physically hurt by someone? No 12/02/2024 Within the past 12 months, h ave you been humiliated or emotionally abused in other ways by your partner or ex-partner? No 12/02/2024 Comments No Sex and Gender Information Value Date Recorded Sex Assigned at Not on file Legal Sex Female 8:25 AM LEARNING ENGINEER Gender Identity Not on file Sexual Orientation Not on file documented as of this encounter Progress Notes * Yane Mcmanus RN - 12/06/2024 11:01 AM CDT Nursing Visit Note: Nurse visit today for SEBASTIAN, however no answer at door or Return of calls. for Gianna Hernández. Piping Designer present during visit today: Not Applicable. Intravenous Access: PICC. Note: Patient unavailable, to reschedule for tomorrow Saline administered: 0 (ml) Supply Check: Does the patient have all the supplies they need for the next visit? Yes Next visit plan: To reschedule to tomorrow, scheduling will try to reach patient. Yane Mcmanus RN 12/06/2024 documented in this encounter Plan of Treatment Upcoming Encounters Date Type Department Care Team (Late st Contact Info) Description 02/15/2025 10:30 AM CDT Lab [facility] [address] [phone] Olinda Vora APRN CERTIFIED WELLNESS PROGRAM COORDINATOR [address] [place] [id number] 02/15/2025 11:00 AM CDT Oncology Visit [facility] [address] [phone] Olinda Vora APRN CERTIFIED WELLNESS PROGRAM COORDINATOR [address] [place] [phone] 04/09/2025 3:00 PM LEARNING ENGINEER Lab [facility] [address] [phone] Case Samuel MD [address] [place] [address], [address] [place] [address] 04/09/2025 3:30 PM LEARNING ENGINEER Oncology Visit [facility] [address] [phone] Case Samuel MD [address] [place], [place] [address], [address] [place], [place] [address] documented as of this encounter Goals Goal Patient Goal Type Associated Problems Recent Progress Patient-Stated? Author Pain Management General On track( 025 2:37 PM CDT) Yes Juhi Benson, RN Note: [...] on filedocumented in this encounter Care Teams New Business Clerk Relationship Specialty Start Date End Date Veronica Joseph MD [address] [place] [address] PCP - General Family Medicine 06/18/24 Mor Ramsey Medical Student 04/03/24 Case Samuel MD [address] [facility] [address], [address] [place], [place] [phone] Assigned Pediatric Specialist Provider 05/18/24 Juhi Benson, RN Specialty College [employer] Department Head Hematology & Oncology 05/29/24 Olinda Vora APRN CERTIFIED WELLNESS PROGRAM COORDINATOR [address] [place] [address] Assigned Cancer Care Provider 08/16/24 Stiven Stanley LP [address] [place] [address] Psychologist PSYCHOLOGIST CLINICAL 10/25/24 Star Galarza MD [facility] . [address] [place], [place] [address] Home Infusion Following Provider Infectious Diseases 11/07/24 Aliyah [facility], SOFIA Home Infusion Zmt Operator 11/16/24 01/04/25 Enrico Mckoy, RN [facility] Resource Team 12/05/24 12/06/24 [place], SOFIA [facility] Resource Team 12/10/24 12/20/24 documented as of this encounter
--- OUTSIDE RECORDS SUMMARY | 2024-12-06 11:10 | XMS_ITS | Encounter Summary ---
Author Organization [facility] Address [address] [place] [address] Care Team Providers Care Coil Taper Name Role Phone Roxy Mor Unavailable Unavailable Case Samuel MD Unavailable [phone] Juhi Benson RN Unavailable Unavailable Veronica Joseph MD Primary Care Provider [phone] Olinda Vora APRN SECURE SOFTWARE ASSESSOR Unavailable [phone] Stiven Stanley Unavailable Star Galarza MD Unavailable [phone] Aliyah Hudson RN Unavailable Unavailable Enrico Mckoy RN Unavailable UnavailNorth Alejandro RN Unavailable Unavailable Reason for Visit * Home Infusion Authorization (Routine) - Authorized Specialty Diagnoses / Procedures Referred By Contac t Referred To Contact [facility]fusion [facility] In[facility] [address] [place] [phone] Phone: tel: fax: Referral ID Status Reason Start Date Expiration Date V isits Requested Visits Authorized [id number] Authorized 11/06/2024 11/06/2025 [id number] Encounter Details Date Type Department Care Team (Late st Contact Info) Description 12/06/2024 11:10 AM CDT Home Care Visit [facility] [address] [place] [phone] Yane Mcmanus RN Social History Tobacco Use Types Packs/Day [...] an overnight senior living, or couch-surfing.) Yes 11/09/2024 Are you worried [...] on file Legal Sex Female 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 Gender Identity Not on file Sexual Orientation Not on file documented as of this encounter Last Filed Vital Signs Vital Sign Reading Time Taken Comments Blood Pressure 94/56 12/06/2024 11:59 AM CDT Pulse 88 12/06/2024 11:59 AM CDT Temperature 36.2 C (97.1 F) 12/06/2024 11:59 AM CDT Respiratory Rate 16 12/06/2024 11:59 AM CDT Oxygen Saturation 99% 12/06/2024 11:59 AM CDT Inhaled Oxygen Concentration - - Weight 48 kg (105 lb 13.1 oz) 12/06/2024 11:59 A M CDT Height - - Body Mass Index 19.99 11/30/2024 8:57 PM CDT documented in this encounter Progress Notes * Yane Mcmanus RN - 12/06/2024 12:07 PM CDT Nursing Visit Note: Nurse visit today for SEBASTIAN( as telegraphic typewriter mechanic was still in driveway, pt called and stated she was having phone issues)SNV was carried out. for Gianna Hernández. Hotel General Manager present during visit today: Not Applicable. Intravenous Access: Labs drawn without difficulty. and PICC. Lab-Only Nursing Note Labs obtained via PICC Time Specimen drawn: 11:20 Last dose (if applicable): No Facility sent to: [facility] Tracking number: [id number] Note: Gianna presents fatigued and states that she feels ???wiped out?? after hospitalization stay/ illness. She states she has generalized discomfort. Has intermittent pain in rib cage area, butnot like pre-hospital admission. CLC performed and labs drawn. Unfortunately no IV antibiotics in the home, coordinator called and will be delivering karl to the home to get her doses for today. Saline administered: 30 (ml) Supply Check: Does the patient have all the supplies they need for the next visit? No, Order placed for Dressing kits, normal saline flushes, IV ANTIBIOTICS, micro extensions x2. Next visit plan: 12/14/2023- prefers afternoon visits( CLC/ labs) Yane Mcmanus RN 12/06/2024 documented in this encounter Plan of Treatment Upcoming Encounters Date Type Department Care Team (Late st Contact Info) Description 02/15/2025 10:30 AM CDT [facility] [address] [place] [phone] Olinda Vora APRN SECURE SOFTWARE ASSESSOR [address] [place] [address] 02/15/2025 11:00 AM CDT Oncology Visit [facility] [address] [phone] Olinda Vora APRN SECURE SOFTWARE ASSESSOR [address] [place] [address] 04/09/2025 3:00 PM PARACHUTE RIGGER Lab [facility] [address] [phone] Case Samuel MD [address] [place] [address], [address] [place], [place] [address] 04/09/2025 3:30 PM PARACHUTE RIGGER Oncology Visit [facility] [address] [phone] Case Samuel MD [address] [place] [address], [address] [place], [place] [address] documented as of this encounter Goals Goal [...] on filedocumented in this encounter Care Teams Coil Taper Relationship Specialty Start Date End Date Veronica Joseph MD [address] [place] [address] PCP - General Family Medicine 06/18/24 Mor Ramsey Medical Student 04/03/24 Case Samuel MD [address] [facility] [address], [address] [place] [address] Assigned Pediatric Specialist Provider 05/18/24 Juhi Benson, SOFIA Specialty Erp Pm Hematology & Oncology 05/29/24 Olinda Vora APRN SECURE SOFTWARE ASSESSOR [address] [place] [address] Assigned Cancer Care Provider 08/16/24 Stiven Stanley LP [address] [place] [address] Psychologist PSYCHOLOGIST CLINICAL 10/25/24 Star Galarza MD [facility] [address] [place], [place] [address] Home Infusion Following Provider Infectious Diseases 11/07/24 Aliyah [facility] RN Home Infusion Piper Helper 11/16/24 01/04/25 Enrico Mckoy RN [facility] Resource Team 12/05/24 12/06/24 [place] RN [facility] Resource Team 12/10/24 12/20/24 documented as of this encounter
--- OUTSIDE RECORDS SUMMARY | 2024-12-25 19:33 | XMS_ITS | Encounter Summary ---
Author Organization [facility] Address [address] [place] [address]. [place] [address] Care Team Providers Care Balance Weigher Name Role Phone Elvira Ramseyc Unavailable Unavailable Case Samuel MD Unavailable [phone] Juhi Benson RN Unavailable Unavailable Veronica Joseph MD Primary Care Provider [phone] Olinda Vora APRN [employer] Unavailable [phone] Stiven Stanley Unavailable Star Galarza MD Unavailable [phone] Aliyah Hudson RN Unavailable Unavailable Reason for Visit * Reason Comments Sickle Cell Pain Crisis Encounter Details Date Type Department Care Team ([facility] st Contact Info) Description 12/25/2024 7:33 PM CDT - 12/25/2024 11:18 PM CDT Emergency [facility] Emergency Department [address] [place] [phone] Marguerite Burgess MD [address] [place] [address] [phone] Sickle cell disease with crisis (H) (Primary Dx) Discharge Disposition: Home or Self [...] in an overnight fpc, or couch-surfing.) Yes 11/09/2024 Are you worried [...] file Legal Sex Female 8:25 AM MEDICAL STAFF SERVICES COORDINATOR Gender Identity Not on file Sexual Orientation Not on file documented as of this encounter Last Filed Vital Signs Vital Sign Reading Time Taken Comments Blood Pressure 132/91 12/25/2024 10:52 PM CDT Pulse 93 12/25/2024 7:23 PM CDT Temperature 37.2 C (99 F) 12/25/2024 7:23 PM CDT Respiratory Rate 16 12/25/2024 10:52 PM CDT Oxygen Saturation 95% 12/25/2024 10:52 PM CDT Inhaled Oxygen Concentration - - Weight 49.9 kg (110 lb) 12/25/2024 7:23 PM CDT Height 154.9 cm (5' 1) 12/25/2024 7:23 PM CDT Body Mass Index 20.78 12/25/2024 7:23 PM CDT documented in this encounter Discharge Instructions * Discharge Instructions* Marguerite Burgess MD - 12/25/2024 11:13 PM CDT TODAY'S VISIT: - You should discuss all imaging/radiology tests and laboratory tests that were performed during this visit with your usual providers to ensure you continue to improve and do not need any further evaluation, testing or management. - Please call your Primary Care team to discuss and arrange a follow-up appointment. Immediately return to the nearest Emergency Department with any new or worsening symptoms or concerns. FOLLOW-UP: Please make an appointment to follow up with: - Your Primary Care Provider and Hematology (call them in the morning to discuss your symptoms and labs). - If you do not have a primary care provider, you can be seen in follow-up and establish care with one of our providers by calling of the the clinics below: --- [facility] (phone: [phone]) --- Primary Care / [facility] (phone: [phone]) - Have your provider review the results from today's visit with you again to make sure no further follow-up or additional testing is needed based on those results. OTHER INSTRUCTIONS: - Do your best to stay hydrated. RETURN TO THE EMERGENCY DEPARTMENT Return to the Emergency Department immediately for any new or worsening symptoms or any concerns. Remember that you can always come back to the Emergency Department if you are not able to see your regular doctor in the amount of time listed above, if you get any new symptoms, or if there is anything that worries you. * Attachments The following attachments cannot be sent through Care Everywhere. * Sickle Cell Crisis (Setswana) documented in this encounter Medications at Time of Discharge diphenhydrAMINE (BENADRYL) 25 MG tablet Take 1-2 tablets by mouth every 6 hours as needed for itching. EPINEPHrine (ANY BX GENERIC EQUIV) 0.3 MG/0.3ML injection 2-pack Inject 0.3 mg into the muscle as needed for anaphylaxis. May repeat one time in 5-15 minutes if response to initial dose is inadequate. FLUoxetine (PROZAC) 40 MG capsuleIndications :Severe episode of recurrent major depressive disorder, without psychotic features (H) Take 1 capsule (40 mg) by mouth daily. 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 30 tablet 11 5 naloxone (NARCAN) 4 MG/0.1ML nasal spray Homer 1 spray (4 mg) into one nostril alternating nostrils as needed for opioid reversal (for opiate overdose if not breathing and unconscious. have your family member watch video on how to use/read information sheet). every 2-3 minutes until assistance arrives 2 each 5 ondansetron (ZOFRAN ODT) 4 MG ODT tabIndications:Gal lstones Take 1 tablet (4 mg) by mouth every 6 hours as needed for nausea or vomiting. 20 tablet 5 polyethylene glycol (MIRALAX) 17 GM/Dose powderIndications: Sickle cell pain crisis (H) Take 17 g by mouth 2 times daily as needed for constipation. 510 g 3 5 senna-docusate (SENOKOT-S/PERICOL DAV) 8.6-50 MG tabletIndications: Sickle cell pain crisis (H) Take 2 tablets by mouth 2 times daily as needed for constipation. 60 tablet 5 apixaban ANTICOAGULANT (ELIQUIS) 5 MG tabletIndications: Acute pulmonary embolism without acute cor pulmonale, unspecified pulmonary embolism type (H) Take 1 tablet (5 mg) by mouth 2 times daily. 5 01/19/20 25 ceFAZolin (ANCEF) injectionIndicatio ns:MSSA bacteremia Inject 20 mLs (2 g) over 5-10 minutes into the vein via push every 8 hours for 19 days. 1140 mL 12/12/2024 11:59 PM CDT 5 01/05/20 25 ceFAZolin (ANCEF) injectionIndicatio ns:MSSA bacteremia Inject 20 mLs (2 g) over 5-10 minutes into the vein via push every 8 hours for 8 days. [id number] mL 12/01/2024 11:59 PM CDT 5 01/05/20 25 ceFAZolin (ANCEF) injectionIndicatio ns:MSSA bacteremia Inject 20 mLs (2 g) over 5-10 minutes into the vein via push every 8 hours for 24 days. [id number] mL 11/28/2024 11:59 PM CDT 5 01/05/20 25 Emergency Supply Kit, [facility],Indication s:MSSA bacteremia Patient use for emergency only. Contents: 3 sodium chloride 0.9% flushes, 1 dressing kit, 1 microclave ext set 14, 4 nitrile gloves (med), 6 alcohol prep pads, 1 bacitracin, 1 syringe (10 cc 20 G 1). Call to reorder. [id number] kit 5 01/05/20 25 Emergency Supply Kit, [facility],Indication s:MSSA bacteremia Patient use for emergency only. Contents: 3 sodium chloride 0.9% flushes, 1 dressing kit, 1 microclave ext set 14, 4 nitrile gloves (med), 6 alcohol prep pads, 1 bacitracin, 1 syringe (10 cc 20 G 1). Call to reorder. [id number] kit 5 01/05/20 25 Emergency Supply Kit, [facility],Indication s:MSSA bacteremia Patient use for emergency only. Contents: 3 sodium chloride 0.9% flushes, 1 dressing kit, 1 microclave ext set 14, 4 nitrile gloves (med), 6 alcohol prep pads, 1 bacitracin, 1 syringe (10 cc 20 G 1). Call to reorder. 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 1 Week supply. No early refills 24 tablet 5 12/29/19 25 Port Access KitIndications:RIMA A bacteremia For nurse use only. Do not remove items from bag. Use for port access. Do not place syringe on sterile field. [id number] kit 5 01/05/20 25 Port Access KitIndications:RIMA A bacteremia For nurse use only. Do not remove items from bag. Use for port access. Do not place syringe on sterile field. [id number] kit 5 01/05/20 25 Port Access KitIndications:RIMA A bacteremia For nurse use only. Do not remove items from bag. Use for port access. Do not place syringe on sterile field. [id number] kit 11/28/2024 11:59 PM CDT 5 01/05/20 25 sodium chloride, PF, 0.9% PF flushIndications:M SSA bacteremia Inject 10 mLs into the vein as needed for line flush. Flush IV before and after med administration as directed and/or at least every 24 hours, or prior to deaccessing for no further use and/or at least every 4 weeks when not accessed. [id number] mL 12/12/2024 11:59 PM CDT 5 01/05/20 25 sodium chloride, PF, 0.9% PF flushIndications:M SSA bacteremia Inject 10 mLs into the vein as needed for line flush. Flush IV before and after med administration as directed and/or at least every 24 hours, or prior to deaccessing for no further use and/or at least every 4 weeks when not accessed. [id number] mL 12/01/2024 11:59 PM CDT 5 01/05/20 25 sodium chloride, PF, 0.9% PF flushIndications:M SSA bacteremia Inject 10 mLs into the vein as needed for line flush. Flush IV before and after med administration as directed and/or at least every 24 hours, or prior to deaccessing for no further use and/or at least every 4 weeks when not accessed. [id number] mL 11/28/2024 11:59 PM CDT 01/05/20 documented as of this encounter ED Notes * Shauna Foster RN - 12/25/2024 11:16 PM CDT Went to discharge. Patient is not in room. * Shauna Foster RN - 12/25/2024 11:08 PM CDT MD Burgess locked pt PICC line. Pt stated she would not like to wait for her discharge paperwork. Pt left the ED- pt notified junior underwriter that partner is waiting for her. Left amb with good gait to exit. * Lali Haines RN - 12/25/2024 7:33 PM CDT Bed: ED11 Expected date: Expected time: Means of arrival: Comments: t3 * Danica Mccloud RN - 12/25/2024 7:25 PM CDT Patient to triage with c/o sickle cell pain. Patient stated it hurts all over her body but no chestpain. Patient took Dilaudid with no effect. Triage Assessment (Adult) Row Name 12/25/241923 Triage Assessment Airway WDL WDL Respiratory WDL Respiratory WDL WDL Skin Circulation/Temperature WDL Skin Circulation/Temperature WDL WDL Cardiac WDL Cardiac WDL WDL Peripheral/Neurovascular WDL Peripheral Neurovascular WDL WDL Cognitive/Neuro/Behavioral WDL Cognitive/Neuro/Behavioral WDL WDL Lester Coma Scale Best Eye Response 4-->(E4) spontaneous Best Motor Response 6-->(M6) obeys commands Best Verbal Response 5-->(V5) oriented [place] Coma Scale Score 15 * Marguerite Burgess MD - 12/25/2024 7:07 PM CDT History Chief Complaint Patient presents with Sickle Cell Pain Crisis HPI Gianna Hernández is a 29 year old female who has a PMH notable for 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 Patient reports generalized body pain that feels similar to prior sickle cell crises. She denies any chest pain or difficulty breathing. No fevers/chills. She reports taking her home oral dilaudid prior to arrival without improvement in symptoms. Patient is generalized and reported as similar to previous. No particular neck or spinal symptoms. No numbness, tingling, weakness or other neuro type symptoms. Feels exactly the same as usual pain. No other new symptoms or concerns reported at this time. Full ROS completed w/o additional findings. 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 Retinopathy, vascular reports right side, sickle retinopathy Sickle cell anemia Past Surgical History: Procedure Laterality Date ARTHROPLASTY KNEE Left details unclear IR CHEST PORT PLACEMENT > 5 YRS OF AGE 105/25/2024 IR CHEST PORT PLACEMENT > 5 YRS OF AGE 105/25/2024 REMOVE PORT VASCULAR ACCESS Bilateral 11/10/2024 Procedure: REMOVAL, VASCULAR ACCESS PORT; Surgeon: Salvador Contreras MD; Location: [facility] OR TONSILLECTOMY & ADENOIDECTOMY Bilateral apixaban ANTICOAGULANT (ELIQUIS) 5 MG tablet diphenhydrAMINE (BENADRYL) 25 MG tablet EPINEPHrine (ANY BX GENERIC EQUIV) 0.3 MG/0.3ML injection 2-pack FLUoxetine (PROZAC) 40 MG capsule folic acid (FOLVITE) 1 MG tablet HYDROmorphone (DILAUDID) 2 MG tablet hydroxyurea (HYDREA) 500 MG capsule multivitamin, therapeutic (THERA-VIT) TABS tablet naloxone (NARCAN) 4 MG/0.1ML nasal spray ondansetron (ZOFRAN ODT) 4 MG ODT tab polyethylene glycol (MIRALAX) 17 GM/Dose powder senna-docusate (SENOKOT-S/PERICOLACE) 8.6-50 MG tablet Allergies Allergen Reactions Banana Anaphylaxis, Hives and [...] allergy to only cashew nut Tramadol Hives Cashew Nut Oil Hives Family History Family History Problem Relation Age of Onset Sickle Cell Trait Daughter Social History Social History Tobacco Use Smoking status: Never Smokeless tobacco: Never Substance Use Topics Alcohol use: Not Currently Drug use: Never REVIEW OF SYSTEMS A complete review of systems was performed with pertinent positives and negatives noted in the HPI,and all other systems negative. Physical Exam BP: 105/66 Pulse: 93 Temp: 99 ??F (37.2 ??C) Resp: 18 Height: 154.9 cm (5' 1) Weight: 49.9 kg (110 lb) SpO2: 100 % Physical Exam CONSTITUTIONAL: Awake and alert. Non-toxic appearance. No acute distress. HENT: - Head: Normocephalic and atraumatic. - Ears: External ear grossly normal. - Nose: Nose normal. No rhinorrhea. No epistaxis. - Mouth/Throat: MMM EYES: Conjunctivae and lids are normal. No scleral icterus. NECK: Normal range of motion and phonation normal. Neck supple. No tracheal deviation, no stridor. No edema or erythema noted. CARDIOVASCULAR: Normal rate, regular rhythm and no appreciable abnormal heart sounds. PULMONARY/CHEST: Normal work of breathing. No accessory muscle usage or stridor. No respiratory distress. No appreciable abnormal breath sounds. ABDOMEN: Soft, non-distended. No tenderness. No peritoneal findings, no rigidity, rebound or guarding. No palpable masses or abnormal pulsatility appreciated. MUSCULOSKELETAL: Extremities warm and seemingly well perfused. NEUROLOGIC: Awake, alert. Not disoriented. No seizure activity. GCS 15 SKIN: Skin is warm and dry. No diaphoresis. No pallor. No rash/acute appearing skin changes noted. PSYCHIATRIC: Normal mood and affect. Speech and behavior normal. Thought processes linear. Cognition and memory are normal. No SI/HI reported. ED Course Critical care was not performed. Medical Decision Making The patient's presentation was of moderate to high complexity The patient's evaluation involved: review of 3+ test result(s) ordered prior to this encounter (see separate area of note for details) ordering and/or review of 3+ test(s) in this encounter (see separate area of note for details) The patient's management necessitated high risk (a parenteral controlled substance). 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 Clinically, patient appears nontoxic, NAD. Vitals gross Od[place] L. Otherwise on examination, no obvious acute findings, no acute cardiopulmonary findings. No obvious joint swelling or abnormalities appreciated. Neurovascularly without acute findings. Ddx includes, but not limited to, recurrent pain flare, sickle cell vaso- occlusive crisis, no features for an acute inflammatory infectious arthritis, no findings for trauma. No symptoms for acute chest syndrome or other sequelae. PLAN: - Laboratory studies, symptom management according to ED care plan - Dispo pending ED Course RESULTS: Labs: - Labs relatively similar to prior with evidence of elevated reticulocyte count INTERVENTIONS: - IV fluid, IV Dilaudid (according to ED care plan) RE-EVALUATION: - The patient's symptoms were improved during ED course - Pt otherwise continues to do well here in the ED, no acute issues or apparent concerning changes in vitals or clinical appearance. DISCUSSIONS: - w/ Patient: I have reviewed the available findings, plan, need for close follow up, strict return/safety instructions with the patient. She expressed understanding and agreement with this plan. Allquestions answered to the best of our ability at this time. DISPOSITION/PLANNING: IMPRESSION: - Recurrent pain in the setting of known sickle cell disease - Elevated reticulocyte count DISPOSITION: - Discharge to home as per patient request FOLLOW-UP: - With PCP/Hematology teams OTHER RECOMMENDATIONS: - Conservative symptom management, strict return instructions Marguerite Burgess MD 12/25/2024 [facility] EMERGENCY DEPARTMENT Marguerite Burgess MD 12/27/24 1106 documented in this encounter Plan of Treatment Upcoming Encounters Date Type Department Care Team (Late st Contact Info) Description 02/15/2025 10:30 AM CDT Lab [facility] Cancer [address] [phone] Olinda Vora APRN [employer] TE[employer]ER [address] [place] [id number] 02/15/2025 11:00 AM CDT Oncology Visit [facility] Cancer [address] [phone] Olinda Vora APRN [employer] [address] [place] [id number] 04/09/2025 3:00 PM MEDICAL STAFF SERVICES COORDINATOR Lab [facility] Cancer [address] [phone] Case Samuel MD [address] [place] [address], [address] [place], [place] [address] 04/09/2025 3:30 PM MEDICAL STAFF SERVICES COORDINATOR Oncology Visit [facility] Cancer [address] [phone] Case Samuel MD [address] [place] [address], [address] [place] [address] documented as of this encounter Goals Goal [...] Comments CBC WITH PLATELETS AND DIFFERENTIAL STAT 12/25/2024 8:08 PM CDT CBC WITH PLATELETS AND DIFFERENTIAL (LIMITED OCCURRENCES) STAT 12/25/2024 8:08 PM CDT COMPREHENSIVE METABOLIC PANEL (LIMITED OCCURRENCES) STAT 12/25/2024 8:08 PM CDT RETICULOCYTE COUNT STAT 12/25/2024 8: 08 PM CDT INR STAT 12/25/2024 8:08 PM CDT HCG QUALITATIVE STAT 12/25/2024 8:08 PM CDT documented in this encounter Results * (ABNORMAL) CBC with platelets and differential (12/25/2024 8:08 PM CDT) WBC Count 11.33(H) 4.00 - 11.00 10e3/uL 12/25/2024 8:25 PM CDT [facility] RBC Count 2.35(L) 3.80 - 5.20 10e6/uL 12/25/2024 8:25 PM CDT [facility] Hemoglobin 7.8(L) 11.7 - 15.7 g/dL 12/25/2024 8:25 PM CDT [facility] Hematocrit 22.9(L) 35.0 - 47.0 % 12/25/2024 8:25 PM CDT [facility] MCV 97.4 78.0 - 100.0 fL 12/25/2024 8:25 PM CDT [facility] MCH 33.2(H) 26.5 - 33.0 pg 12/25/2024 8:25 PM CDT [facility] MCHC 34.1 31.5 - 36.5 g/dL 12/25/2024 8:25 PM CDT [facility] RDW 21.5(H) 10.0 - 15.0 % 12/25/2024 8:25 PM CDT [facility] Platelet Count 437 150 - 450 10e3/uL 12/25/2024 8:25 PM CDT [facility] % Neutrophils 61.0 % 12/25/2024 8:25 PM CDT [facility] % Lymphocytes 24.4 % 12/25/2024 8:25 PM CDT [facility] % Monocytes 12.5 % 12/25/2024 8:25 PM CDT [facility] % Eosinophils 0.3 % 12/25/2024 8:25 PM CDT [facility] % Basophils 1.4 % 12/25/2024 8:25 PM CDT [facility] % Immature Granulocytes 0.4 % 12/25/2024 8:25 PM CDT [facility] NRBCs per 100 WBC 2.1(H) <1.0 /100 12/25/2024 8:25 PM CDT [facility] Absolute Neutrophils 6.90 1.60 - 8.30 10e3/uL 12/25/2024 8:25 PM CDT [facility] Absolute Lymphocytes 2.77 0.80 - 5.30 10e3/uL 12/25/2024 8:25 PM CDT [facility] Absolute Monocytes 1.42(H) 0.00 - 1.30 10e3/uL 12/25/2024 8:25 PM CDT [facility] Absolute Eosinophils 0.03 0.00 - 0.70 10e3/uL 12/25/2024 8:25 PM CDT [facility] Absolute Basophils 0.16 0.00 - 0.20 10e3/uL 12/25/2024 8:25 PM CDT [facility] Absolute Immature Granulocytes 0.05 <=0.40 10e3/uL 12/25/2024 8:25 PM CDT [facility] Absolute NRBCs 0.24 10e3/uL 12/25/2024 8:25 PM CDT [facility] Blood BLOOD SPECIMEN / Unknown Venipuncture / Unknown 12/25/2024 8:08 PM CDT 12/25/2024 8:18 PM CDT Marguerite Burgess MD LAB - BLOOD ORDERABLES Final Result [facility] [address] [facility], Room [address] [phone] * HCG qualitative Blood (12/25/2024 8:08 PM CDT) Pathologist [facility] hCG Serum Qualitative Negative Negative JARET 12/25/2024 8:57 PM CDT [facility] Comment:This test is for scr eening purposes. Results should be interpreted along with the clinical picture. Confirmation testing is available if warranted by ordering [id number], HCG Quantitative . Blood BLOOD SPECIMEN / Unknown Venipuncture / Unknown 12/25/2024 8:08 PM CDT 12/25/2024 8:17 PM CDT Marguerite Burgess MD LAB - BLOOD ORDERABLES Final Result Performing Organization Address City/[facility]/ZIP Co de Phone Number [facility] [address] [facility], [address] [phone] * (ABNORMAL) Reticulocyte count (12/25/2024 8:08 PM CDT) [facility] % Reticulocyte 17.10(H) 0.50 - 2.00 % 12/25/2024 8:25 PM CDT [facility] Absolute Reticulocyte 0.4019(H) 0.0250 - 0.0950 10e6/uL 12/25/2024 8:25 PM CDT [facility] Blood BLOOD SPECIMEN / Unknown Venipuncture / Unknown 12/25/2024 8:08 PM CDT 12/25/2024 8:18 PM CDT Marguerite Burgess MD LAB - BLOOD ORDERABLES Final Result [facility] [address] [facility], [address] [phone] * (ABNORMAL) Comprehensive Metabolic Panel (Limited Occurrences) (12/25/2024 8:08 PM CDT) Sodium 141 135 - 145 mmol/L 12/25/2024 8:48 PM CDT [facility] Potassium 4.2 3.4 - 5.3 mmol/L 12/25/2024 8:48 PM CDT [facility] Carbon Dioxide (CO2) 22 22 - 29 mmol/L 12/25/2024 8:48 PM CDT [facility] Anion Gap 11 7 - 15 mmol/L 12/25/2024 8:48 PM CDT [facility] Urea Nitrogen 8.6 6.0 - 20.0 mg/dL 12/25/2024 8:48 PM CDT [facility] Creatinine 0.67 0.51 - 0.95 mg/dL 12/25/2024 8:48 PM CDT [facility] GFR Estimate >90 >60 mL/min/1.7 3m2 12/25/2024 8:48 PM CDT [facility] Comment:eGFR calculated usin 2020 CKD-EPI equation. Calcium 9.7 8.8 - 10.4 mg/dL 12/25/2024 8:48 PM CDT [facility] Chloride 108(H) 98 - 107 mmol/L 12/25/2024 8:48 PM CDT [facility] Glucose 112(H) 70 - 99 mg/dL 12/25/2024 8:48 PM CDT [facility] Alkaline Phosphatase 78 40 - 150 U/L 12/25/2024 8:48 PM CDT [facility] AST 37 0 - 45 U/L 12/25/2024 8:48 PM CDT [facility] ALT 22 0 - 50 U/L 12/25/2024 8:48 PM CDT [facility] Protein Total 7.9 6.4 - 8.3 g/dL 12/25/2024 8:48 PM CDT [facility] Albumin 4.3 3.5 - 5.2 g/dL 12/25/2024 8:48 PM CDT [facility] Bilirubin Total 1.9(H) <=1.2 mg/dL 12/25/2024 8:48 PM CDT [facility] Blood BLOOD SPECIMEN / Unknown Venipuncture / Unknown 12/25/2024 8:08 PM CDT 12/25/2024 8:18 PM CDT Marguerite Burgess MD LAB - BLOOD ORDERABLES Final Result [facility] [address] [facility], [address] [phone] * (ABNORMAL) INR (12/25/2024 8:08 PM CDT) INR 1.36(H) 0.85 - 1.15 12/25/2024 8:55 PM CDT [facility] PT 16.7(H) 11.8 - 14.8 Seconds 12/25/2024 8:55 PM CDT [facility] Blood BLOOD SPECIMEN / Unknown Venipuncture / Unknown 12/25/2024 8:08 PM CDT 12/25/2024 8:18 PM CDT Marguerite Burgess MD LAB - BLOOD ORDERABLES Final Result [facility], [address] [phone] documented in this encounter Visit Diagnoses Diagnosis Sickle cell disease with crisis (H)- Primary Hb-SS disease with crisis documented in this encounter Administered Medications Inactive Administered Medications - up to 3 most recent administrations Medication Order MAR Action Action Date Dose Rate Site hydromorphone (DILAUDID) injection 2 mg 2 mg, Intravenous, EVERY 1 HOUR PRN, severe pain, Starting on Wed12/25/24 at 1905, For 3 doses $Given 12/25/2024 10:48 PM CDT 2 mg $Given 12/25/2024 9:33 PM CDT 2 mg $Given 12/25/2024 8:13 PM CDT 2 mg lactated ringers BOLUS 1,000 mL Intravenous, 1,000 mL, ONCE, at 500 mL/hr, Administer over 2 Hours, On Wed12/25/24 at 1910, For 1 dose $New Bag 12/25/2024 8:22 PM CDT 1,000 mLs 500 mL/hr documented in this encounter Active and Recently Administered Medications Times are shown in CDT. Scheduled Medication Order 12/23/2024 12/24/2024 12/25/2024 lactated ringers BOLUS 1,000 mL (COMPLETED) Intravenous, 1,000 mL, ONCE, at 500 mL/hr, Administer over 2 Hours, On Wed12/25/24 at 1910, For 1 dose 2021 ($New Bag - Pro vider: Shauna Foster RN)225 (Stopped - Provider: Shauna Foster RN) PRN Medication Order 12/23/2024 12/24/2024 12/25/2024 hydromorphone (DILAUDID) injection 2 mg (COMPLETED) 2 mg, Intravenous, EVERY 1 HOUR PRN, severe pain, Starting on Wed12/25/24 at 1905, For 3 doses 2012 ($Given - Provi nas: Shauna Foster RN)213 ($Given - Provider: Shauna Foster RN)2248 ($Given - Provider: Shauna Foster RN) documented in this encounter Care Teams Balance Weigher Relationship Specialty Start Date End Date Veronica Joseph MD [address] [place] [address] PCP - General Family Medicine 06/18/24 Mor Ramsey Medical Student 04/03/24 Case Samuel MD [address] [place] [address] 484, [address] [place], [place] [phone] Assigned Pediatric Specialist Provider 05/18/24 Juhi Benson, SOFIA Specialty Diesel Fleet Mechanic Hematology & Oncology 05/29/24 Olinda Vora APRN CNP [address] [place] [address] [id number] Assigned Cancer Care Provider 08/16/24 Stiven Stanley LP [address] [place] [address] Psychologist PSYCHOLOGIST CLINICAL 10/25/24 Star Galarza MD [facility] [address] [place] [address] Home Infusion Following Provider Infectious Diseases 11/07/24 Aliyah Hudson, SOFIA Home Infusion Network Systems Consultant 11/16/24 01/04/25 documented as of this encounter
--- OUTSIDE RECORDS SUMMARY | 2024-12-26 13:34 | XMS_ITS | Encounter Summary ---
Author Organization [facility] Address [address] [place] [address] Care Team Providers Care Automatic Profile Sander Operator Name Role Phone Roxy Mor Unavailable Unavailable Case Samuel MD Unavailable [phone] Juhi Benson RN Unavailable Unavailable Veronica Joseph MD Primary Care Provider [phone] Olinda Vora APRN CUSTOMER SERVICE DISPATCHER Unavailable [phone] Stiven Stanley Unavailable Star Galarza MD Unavailable [phone] Aliyah Hudson RN Unavailable Unavailable Reason for Visit * Reason Comments Sickle Cell Pain Crisis * Auth/Cert Specialty Diagnoses / Procedures Referred By Shahid pendleton Referred To Contact EMERGENCY MEDICINE Diagnoses Sickle cell pain crisis (H) Vasiliy Sheffield MD [address] [place] [address] Phone: tel: fax: [facility] Emergency Department [address] [place] [address] Phone: tel: Referral ID Status Reason Start Date Expiration Date Visits Re quested Visits Authorized [id number] 1 1 Encounter Details Date Type Department Care Team ([facility] Contact Info) Description 12/26/2024 1:34 PM CDT - 12/27/2024 2:06 AM CDT Emergency [facility] Emergency Department [address] [place] [address] Emanuel Chester MD [address] [place] [address], [place] [address] Sickle cell pain crisis (H) (Primary Dx) Discharge Disposition: Home [...] in an overnight alf, or couch-surfing.) Yes 11/09/2024 Are you worried [...] on file Legal Sex Female 8:25 AM SKEINER Gender Identity Not on file Sexual Orientation Not on file documented as of this encounter Last Filed Vital Signs Vital Sign Reading Time Taken Comments Blood Pressure 115/72 12/26/2024 5:14 PM CDT Pulse 85 12/26/2024 5:14 PM CDT Temperature 37 C (98.6 F) 12/26/2024 1:31 PM CDT Respiratory Rate 18 12/26/2024 1:31 PM CDT Oxygen Saturation 100% 12/26/2024 5:14 PM CDT Inhaled Oxygen Concentration - - Weight - - Height - - Body Mass Index - - documented in this encounter Discharge Instructions * Discharge Instructions* Emanuel Chester MD - 12/26/2024 5:05 PM CDT Please make an appointment to follow up with your Hematology and Your Primary Care Provider as soonas possible even if entirely better. documented in this encounter Medications at Time [...] 1 tablet by mouth daily. 30 tablet 5 naloxone (NARCAN) 4 MG/0.1ML nasal spray Smoaks 1 spray (4 mg) into one nostril [...] push every 8 hours for 8 days. [id number] mL 12/01/2024 11:59 PM CDT 5 01/05/20 25 ceFAZolin (ANCEF) injectionIndicatio ns:MSSA bacteremia Inject 20 mLs (2 g) over 5-10 minutes into the vein via push every 8 hours for 24 days. [id number] mL 11/28/2024 11:59 PM CDT 5 01/05/20 25 Emergency Supply Kit, Central,Indication s:MSSA bacteremia Patient use for emergency only. Contents: 3 sodium chloride 0.9% flushes, 1 dressing kit, 1 microclave ext set 14, 4 nitrile gloves (med), 6 alcohol prep pads, 1 bacitracin, 1 syringe (10 cc 20 G 1). Call to reorder. [id number] kit 5 01/05/20 25 Emergency Supply Kit, Central,Indication s:MSSA bacteremia Patient use for emergency only. Contents: 3 sodium chloride 0.9% flushes, 1 dressing kit, 1 microclave ext set 14, 4 nitrile gloves (med), 6 alcohol prep pads, 1 bacitracin, 1 syringe (10 cc 20 G 1). Call to reorder. [id number] kit 5 01/05/20 25 Emergency Supply Kit, Central,Indication s:MSSA bacteremia Patient use for emergency only. Contents: 3 sodium chloride 0.9% flushes, 1 dressing kit, 1 microclave ext set 14, 4 nitrile gloves (med), 6 alcohol prep pads, 1 bacitracin, 1 syringe (10 cc 20 G 1). Call to reorder. [id number] kit 11/07/2024 11:59 PM CDT 5 01/05/20 [...] Do not place syringe on sterile field. [id number] kit 5 01/05/20 25 Port Access KitIndications:RIMA A bacteremia For nurse use only. Do not remove items from bag. Use for port access. Do not place syringe on sterile field. [id number] kit 5 01/05/20 25 Port Access KitIndications:RIMA A bacteremia For nurse use only. Do not remove items from bag. Use for port access. Do not place syringe on sterile field. [id number] kit 11/28/2024 11:59 PM CDT 5 01/05/20 25 sodium chloride, PF, 0.9% PF flushIndications:M SSA bacteremia Inject 10 mLs into the vein as needed for line flush. Flush IV before and after med administration as directed and/or at least every 24 hours, or prior to deaccessing for no further use and/or at least every 4 weeks when not accessed. [id number] mL 12/12/2024 11:59 PM CDT 5 01/05/20 25 sodium chloride, PF, 0.9% PF flushIndications:M SSA bacteremia Inject 10 mLs into the vein as needed for line flush. Flush IV before and after med administration as directed and/or at least every 24 hours, or prior to deaccessing for no further use and/or at least every 4 weeks when not accessed. [id number] mL 12/01/2024 11:59 PM CDT 5 01/05/20 25 sodium chloride, PF, 0.9% PF flushIndications:M SSA bacteremia Inject 10 mLs into the vein as needed for line flush. Flush IV before and after med administration as directed and/or at least every 24 hours, or prior to deaccessing for no further use and/or at least every 4 weeks when not accessed. [id number] mL 11/28/2024 11:59 PM CDT 5 01/05/20 25 documented as of this encounter ED Notes * Emanuel Chester MD - 12/26/2024 2:45 PM CDT ED Provider Note [facility] History Chief Complaint Patient presents with Sickle Cell Pain Crisis HPI Gianna Hernández is a 29 year old female with a past medical history of sickle cell disease (HbSS) c/b acute chest [...] of prior sickle cell pain crises. Patient was last seen for a sickle cell pain crisis just last night here in the same ED. Patient reports no chest pain, no shortness of breath. No cough, fever, or GI symptoms. 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 Functional asplenia History of stroke related to [...] all other systems negative. Physical Exam BP: 111/76 Pulse: 88 Temp: 98.6 ??F (37 ??C) Resp: 18 SpO2: 100 % Physical Exam Vitals and nursing note [...] rash. Neurological: General: No focal deficit present. Cranial Nerves: No cranial nerve deficit. Motor: No weakness. ED Course, Procedures, & Data Procedures Results for orders placed or performed during the hospital encounter of 12/26/24 Comprehensive Metabolic Panel (Limited Occurrences) Result Value Ref Range Sodium 140 135 - 145 mmol/L Potassium 4.5 3.4 - 5.3 mmol/L Carbon Dioxide (CO2) 21 (L) 22 - 29 mmol/L Anion Gap 9 7 - 15 mmol/L Urea Nitrogen 7.0 6.0 - 20.0 mg/dL Creatinine 0.62 0.51 - 0.95 mg/dL GFR Estimate >90 >60 mL/min/1.73m2 Calcium 9.6 8.8 - 10.4 mg/dL Chloride 110 (H) 98 - 107 mmol/L Glucose 93 70 - 99 mg/dL Alkaline Phosphatase 74 40 - 150 U/L AST 35 0 - 45 U/L ALT 22 0 - 50 U/L Protein Total 8.0 6.4 - 8.3 g/dL Albumin 4.4 3.5 - 5.2 g/dL Bilirubin Total 1.9 (H) <=1.2 mg/dL Reticulocyte count Result Value Ref Range % Reticulocyte 18.40 (H) 0.50 - 2.00 % Absolute Reticulocyte 0.4582 (H) 0.0250 - 0.0950 10e6/uL CBC with platelets and differential Result Value Ref Range WBC Count 9.88 4.00 - 11.00 10e3/uL RBC Count 2.49 (L) 3.80 - 5.20 10e6/uL Hemoglobin 8.3 (L) 11.7 - 15.7 g/dL Hematocrit 23.9 (L) 35.0 - 47.0 % MCV 96.0 78.0 - 100.0 fL MCH 33.3 (H) 26.5 - 33.0 pg MCHC 34.7 31.5 - 36.5 g/dL RDW 21.0 (H) 10.0 - 15.0 % Platelet Count 445 150 - 450 10e3/uL % Neutrophils 52.8 % % Lymphocytes 29.8 % % Monocytes 14.8 % % Eosinophils 0.6 % % Basophils 1.5 % % Immature Granulocytes 0.5 % NRBCs per 100 WBC 2.2 (H) <1.0 /100 Absolute Neutrophils 5.22 1.60 - 8.30 10e3/uL Absolute Lymphocytes 2.94 0.80 - 5.30 10e3/uL Absolute Monocytes 1.46 (H) 0.00 - 1.30 10e3/uL Absolute Eosinophils 0.06 0.00 - 0.70 10e3/uL Absolute Basophils 0.15 0.00 - 0.20 10e3/uL Absolute Immature Granulocytes 0.05 <=0.40 10e3/uL Absolute NRBCs 0.22 10e3/uL Medications hydromorphone (DILAUDID) injection 2 mg (2 mg Intravenous $Given 12/26/24 1645) lactated ringers BOLUS 1,000 mL (1,000 mLs Intravenous $New Bag 12/26/24 1455) ondansetron (ZOFRAN) injection 8 mg (8 mg Intravenous $Given 12/26/24 1455) Critical care was not performed. Medical Decision [...] given in the ED). Assessment & Plan Uncomplicated sickle cell pain crisis, no suggestion of acute chest or infection, concerned about elevated retic count-reassured, labs ok, followed the care plan-improving, discharge and follow up with her PMD Primary Heme. I have reviewed the nursing notes. I have reviewed the findings, diagnosis, plan and need for follow up with the patient. New Prescriptions No medications on file Final diagnoses: Sickle cell pain crisis (H) I, Carmine Urias, am serving as a trained caregivers non medical to document services personally performedby Emanuel Chester MD, based on the provider's statements to me. IEmanuel MD, was physically present and have reviewed and verified the accuracy of this note documented by Carmine Urias. Emanuel Chester MD [facility] EMERGENCY DEPARTMENT 12/26/2024 Emanuel Chester MD 12/26/24 1800 * Lali Haines, RN - 12/26/2024 1:26 PM CDT Arrives ambulatory with sickle cell pain. States it started yesterday. Pain is throughout her body. Triage Assessment (Adult) Row Name 12/26/24 1326 Triage Assessment Airway WDL WDL Respiratory WDL Respiratory WDL WDL Skin Circulation/Temperature WDL Skin Circulation/Temperature WDL WDL Cardiac WDL Cardiac WDL WDL Peripheral/Neurovascular WDL Peripheral Neurovascular WDL WDL Cognitive/Neuro/Behavioral WDL Cognitive/Neuro/Behavioral WDL WDL documented in this encounter Plan of Treatment Upcoming Encounters Date Type Department Care Team (Late st Contact Info) Description 02/15/2025 10:30 AM CDT Lab [facility] Cancer [address] [phone] Olinda Vora APRN CUSTOMER SERVICE DISPATCHER [address] [place] [phone] 02/15/2025 11:00 AM CDT Oncology Visit [address] [phone] Olinda Vora APRN CUSTOMER SERVICE DISPATCHER [address] [place] [address]165 04/09/2025 3:00 PM SKEINER Lab [facility] Cancer [address] [phone] Case Samuel MD [address] [place], [place] [address], [address] [place], [place] [phone] 04/09/2025 3:30 PM SKEINER Oncology Visit [address] [phone] Case Samuel MD [address] [place] [address], [address] [place], [place] [phone] documented as of this encounter Goals Goal Patient Goal Type Associated Problems Recent Progress Patient-Stated? Author Pain Management General On track( 025 2:37 PM CDT) Yes Juhi Benson, SOFIA Note: [...] Comments CBC WITH PLATELETS AND DIFFERENTIAL STAT 12/26/2024 3:08 PM CDT CBC WITH PLATELETS AND DIFFERENTIAL (LIMITED OCCURRENCES) STAT 12/26/2024 3:08 PM CDT COMPREHENSIVE METABOLIC PANEL (LIMITED OCCURRENCES) STAT 12/26/2024 3:08 PM CDT RETICULOCYTE COUNT STAT 12/26/2024 3: 08 PM CDT documented in this encounter Results * (ABNORMAL) CBC with platelets and differential (12/26/2024 3:08 PM CDT) WBC Count 9.88 4.00 - 11.00 10e3/uL 12/26/2024 3:23 PM CDT [facility] RBC Count 2.49(L) 3.80 - 5.20 10e6/uL 12/26/2024 3:23 PM CDT [facility] Hemoglobin 8.3(L) 11.7 - 15.7 g/dL 12/26/2024 3:23 PM CDT [facility] Hematocrit 23.9(L) 35.0 - 47.0 % 12/26/2024 3:23 PM CDT [facility] MCV 96.0 78.0 - 100.0 fL 12/26/2024 3:23 PM CDT [facility] MCH 33.3(H) 26.5 - 33.0 pg 12/26/2024 3:23 PM CDT [facility] MCHC 34.7 31.5 - 36.5 g/dL 12/26/2024 3:23 PM CDT [facility] RDW 21.0(H) 10.0 - 15.0 % 12/26/2024 3:23 PM CDT [facility] Platelet Count 445 150 - 450 10e3/uL 12/26/2024 3:23 PM CDT [facility] % Neutrophils 52.8 % 12/26/2024 3:23 PM CDT [facility] % Lymphocytes 29.8 % 12/26/2024 3:23 PM CDT [facility] % Monocytes 14.8 % 12/26/2024 3:23 PM CDT [facility] % Eosinophils 0.6 % 12/26/2024 3:23 PM CDT [facility] % Basophils 1.5 % 12/26/2024 3:23 PM CDT [facility] % Immature Granulocytes 0.5 % 12/26/2024 3:23 PM CDT [facility] NRBCs per 100 WBC 2.2(H) <1.0 /100 025 3:23 PM CDT [facility] Absolute Neutrophils 5.22 1.60 - 8.30 10e3/uL 12/26/2024 3:23 PM CDT [facility] Absolute Lymphocytes 2.94 0.80 - 5.30 10e3/uL 12/26/2024 3:23 PM CDT [facility] Absolute Monocytes 1.46(H) 0.00 - 1.30 10e3/uL 12/26/2024 3:23 PM CDT [facility] Absolute Eosinophils 0.06 0.00 - 0.70 10e3/uL 12/26/2024 3:23 PM CDT [facility] Absolute Basophils 0.15 0.00 - 0.20 10e3/uL 12/26/2024 3:23 PM CDT [facility] Absolute Immature Granulocytes 0.05 <=0.40 10e3/uL 12/26/2024 3:23 PM CDT [facility] Absolute NRBCs 0.22 10e3/uL 12/26/2024 3:23 PM CDT [facility] Blood VENOUS LINE / Unknown VAD(CVC, PICC) / Unknown 12/26/2024 3:08 PM CDT 12/26/2024 3:14 PM CDT Emanuel Chester MD LAB - BLOOD ORDERABLES Final Re sult Performing Organization Address City/[facility]/ZIP Co de Phone Number [facility] [place] [facility] [address] [facility], [address] * (ABNORMAL) Reticulocyte count (12/26/2024 3:08 PM CDT) % Reticulocyte 18.40(H) 0.50 - 2.00 % 12/26/2024 3:23 PM CDT [facility] Absolute Reticulocyte 0.4582(H) 0.0250 - 0.0950 10e6/uL 12/26/2024 3:23 PM CDT [facility] Blood VENOUS LINE / Unknown VAD(CVC, PICC) / Unknown 12/26/2024 3:08 PM CDT 12/26/2024 3:14 PM CDT Emanuel Chester MD LAB - BLOOD ORDERABLES Final Re sult Performing Organization Address City/[facility] Co de Phone Number [facility] [place] [facility] [address] [facility], [address] * (ABNORMAL) Comprehensive Metabolic Panel (Limited Occurrences) (12/26/2024 3:08 PM CDT) Sodium 140 135 - 145 mmol/L 12/26/2024 3:53 PM CDT [facility] Potassium 4.5 3.4 - 5.3 mmol/L 12/26/2024 3:53 PM CDT [facility] Carbon Dioxide (CO2) 21(L) 22 - 29 mmol/L 12/26/2024 3:53 PM CDT [facility] Anion Gap 9 7 - 15 mmol/L 12/26/2024 3:53 PM CDT [facility] Urea Nitrogen 7.0 6.0 - 20.0 mg/dL 12/26/2024 3:53 PM CDT [facility] Creatinine 0.62 0.51 - 0.95 mg/dL 12/26/2024 3:53 PM CDT [facility] GFR Estimate >90 >60 mL/min/1.7 3m2 12/26/2024 3:53 PM CDT [facility] Comment:eGFR calculated us2020 CKD-EPI equation. Calcium 9.6 8.8 - 10.4 mg/dL 12/26/2024 3:53 PM CDT [facility] Chloride 110(H) 98 - 107 mmol/L 12/26/2024 3:53 PM CDT [facility] Glucose 93 70 - 99 mg/dL 12/26/2024 3:53 PM CDT [facility] Alkaline Phosphatase 74 40 - 150 U/L 12/26/2024 3:53 PM CDT [facility] AST 35 0 - 45 U/L 12/26/2024 3:53 PM CDT [facility] ALT 22 0 - 50 U/L 12/26/2024 3:53 PM CDT [facility] Protein Total 8.0 6.4 - 8.3 g/dL 12/26/2024 3:53 PM CDT [facility] Albumin 4.4 3.5 - 5.2 g/dL 12/26/2024 3:53 PM CDT [facility] Bilirubin Total 1.9(H) <=1.2 mg/dL 12/26/2024 3:53 PM CDT [facility] Blood VENOUS LINE / Unknown VAD(CVC, PICC) / Unknown 12/26/2024 3:08 PM CDT 12/26/2024 3:14 PM CDT us Emanuel Chester MD LAB - BLOOD ORDERABLES Final Re sult [facility] [place] [address] [facility], [address] [place] [address], [facility] documented in this encounter Visit [...] pain, up to three doses, Starting on Wed12/26/24 at 1443 $Given 12/26/2024 4:45 PM CDT 2 mg $Given 12/26/2024 2:55 PM CDT 2 mg lactated ringers BOLUS 1,000 mL Intravenous, 1,000 mL, ONCE, at 500 mL/hr, Administer over 2 Hours, On Wed12/26/24 at 1445, For 1 dose $New Bag 12/26/2024 2:55 PM CDT 1,000 mLs 500 mL/hr ondansetron (ZOFRAN) injection 8 mg 8 mg, Intravenous, ONCE, Administer over 2-5 Minutes, On Wed12/26/24 at 1445, For 1 dose $Given 12/26/2024 2:55 PM CDT 8 mg documented in this encounter Active and Recently Administered Medications Times are shown in CDT. Scheduled Medication Order 12/25/2024 12/26/2024 12/27/2024 lactated ringers BOLUS 1,000 mL (COMPLETED) Intravenous, 1,000 mL, ONCE, at 500 mL/hr, Administer over 2 Hours, On Wed12/26/24 at 1445, For 1 dose 1455 ($New Bag - Provider: Jemal Friend, SOFIA) ondansetron (ZOFRAN) injection 8 mg (COMPLETED) 8 mg, Intravenous, ONCE, Administer over 2-5 Minutes, On Wed12/26/24 at 1445, For 1 dose 1455 ($Given - Provider: Barrett Friend, RN) PRN Medication Order 12/25/2024 12/26/2024 12/27/2024 hydromorphone (DILAUDID) injection 2 mg 2 mg, Intravenous, EVERY 1 HOUR PRN, severe pain, up to three doses, Starting on Wed12/26/24 at 1443 1455 ($Given - Provider: Barrett Friend, RN)1645 ($Given - Provider: Lynn Preston, SOFIA) documented in this encounter Care Teams Automatic Profile Sander Operator Relationship Specialty Start Date End Date Veronica Joseph MD [address] [place] [address] PCP - General Family Medicine 06/18/24 Mor Ramsey Medical Student 04/03/24 Case Samuel MD [address] [facility] [address], [address] [place] [address] Assigned Pediatric Specialist Provider 05/18/24 Juhi Benson, RN Specialty Hog Worker Hematology & Oncology 05/29/24 Olinda Vora APRN CUSTOMER SERVICE DISPATCHER [address] [place] [address] Assigned Cancer Care Provider 08/16/24 Stiven Stanley LP [address] [place] [address] Psychologist PSYCHOLOGIST CLINICAL 10/25/24 Star Galarza MD [facility]. [address] [place] [address] Home Infusion Following Provider Infectious Diseases 11/07/24 Aliyah Hudson, SOFIA Home Infusion Resident Surgeon 11/16/24 01/04/25 documented as of this encounter
--- OUTSIDE RECORDS SUMMARY | 2024-12-27 19:07 | XMS_ITS | Encounter Summary ---
Author Organization [facility] Address [address] [place] [address] Care Team Providers Care Glass Cleaner Name Role Phone RoxyElvirac Unavailable Unavailable Case Samuel MD Unavailable [phone] Juhi Benson RN Unavailable Unavailable Veronica Joseph MD Primary Care Provider [phone] Olinda Vora APRN RETAIL AND RESTAURANT Unavailable [phone] Stiven Stanley Unavailable Star Galarza MD Unavailable [phone] Aliyah Hudson RN Unavailable Unavailable Reason for Visit * Reason Comments Sickle Cell Pain Crisis * Auth/Cert Specialty Diagnoses / Procedures Referred By Shahid pendleton Referred To Contact EMERGENCY MEDICINE Diagnoses Sickle cell pain crisis (H) Vasiliy Sheffield MD [address] [place] [address] Phone: tel: fax: [facility] Emergency Department [address] [place] [address] Phone: tel: Referral ID Status Reason Start Date Expiration Date Visits Re quested Visits Authorized [id number] 1 1 Encounter Details Date Type Department Care Team ([facility] Contact Info) Description 12/27/2024 7:07 PM CDT - 12/27/2024 10:15 PM CDT Emergency [facility] Emergency Department [address] [place] [address] Marguerite Burgess MD [address] [place] [address] [place] [address] Sickle cell pain crisis (H) (Primary Dx) [...] in an overnight longterm, or couch-surfing.) Yes 11/09/2024 Are you worried [...] on file Legal Sex Female 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 Gender Identity Not on file Sexual Orientation Not on file documented as of this encounter Last Filed Vital Signs Vital Sign Reading Time Taken Comments Blood Pressure 112/88 12/27/2024 10:12 PM CDT Pulse 90 12/27/2024 10:12 PM CDT Temperature 36.8 C (98.2 F) 12/27/2024 7:03 PM CDT Respiratory Rate 18 12/27/2024 10:12 PM CDT Oxygen Saturation 99% 12/27/2024 10:12 PM CDT Inhaled Oxygen Concentration - - Weight 49.9 kg (110 lb) 12/27/2024 7:03 PM CDT Height 154.9 cm (5' 1) 12/27/2024 7:03 PM CDT Body Mass Index 20.78 12/27/2024 7:03 PM CDT documented in this encounter Discharge Instructions * Discharge Instructions* Marguerite Burgess MD - 12/27/2024 10:08 PM CDT TODAY'S VISIT: - You should [...] up with: - Your Primary Care Provider as soon as possible. - If you do not have a primary care provider, you can be seen in follow-up and establish care with one of our providers by calling of the the clinics below: --- [facility] (phone: [phone]) --- Primary Care / [facility] (phone: [phone]) - Have your provider review the results from today's visit with you again to make sure no further follow-up or additional testing is needed based on those results. PRESCRIPTIONS / MEDICATIONS: - Continue your previously prescribed medications. OTHER INSTRUCTIONS: - Do your best to [...] through Care Everywhere. * Sickle Cell Crisis (Surinamese) documented in this encounter Medications at Time [...] 5 naloxone (NARCAN) 4 MG/0.1ML nasal spray [place] 1 spray (4 mg) into one nostril [...] push every 8 hours for 8 days. [id number] mL 12/01/2024 11:59 PM CDT 5 01/05/20 25 ceFAZolin (ANCEF) injectionIndicatio ns:MSSA bacteremia Inject 20 mLs (2 g) over 5-10 minutes into the vein via push every 8 hours for 24 days. [id number] mL 11/28/2024 11:59 PM CDT 5 01/05/20 25 Emergency Supply Kit, Central,Indication s:MSSA bacteremia Patient use for emergency only. Contents: 3 sodium chloride 0.9% flushes, 1 dressing kit, 1 microclave ext set 14, 4 nitrile gloves (med), 6 alcohol prep pads, 1 bacitracin, 1 syringe (10 cc 20 G 1). Call to reorder. [id number] kit 5 01/05/20 25 Emergency Supply Kit, Central,Indication s:MSSA bacteremia Patient use for emergency only. Contents: 3 sodium chloride 0.9% flushes, 1 dressing kit, 1 microclave ext set 14, 4 nitrile gloves (med), 6 alcohol prep pads, 1 bacitracin, 1 syringe (10 cc 20 G 1). Call to reorder. [id number] kit 5 01/05/20 25 Emergency Supply Kit, Central,Indication s:MSSA bacteremia Patient use for emergency only. Contents: 3 sodium chloride 0.9% flushes, 1 dressing kit, 1 microclave ext set 14, 4 nitrile gloves (med), 6 alcohol prep pads, 1 bacitracin, 1 syringe (10 cc 20 G 1). Call to reorder. [id number] kit 11/07/2024 11:59 PM CDT 5 01/05/20 [...] Do not place syringe on sterile field. [id number] kit 5 01/05/20 25 Port Access KitIndications:RIMA A bacteremia For nurse use only. Do not remove items from bag. Use for port access. Do not place syringe on sterile field. [id number] kit 5 01/05/20 25 Port Access KitIndications:RIMA A bacteremia For nurse use only. Do not remove items from bag. Use for port access. Do not place syringe on sterile field. [id number] kit 11/28/2024 11:59 PM CDT 5 01/05/20 25 sodium chloride, PF, 0.9% PF flushIndications:M SSA bacteremia Inject 10 mLs into the vein as needed for line flush. Flush IV before and after med administration as directed and/or at least every 24 hours, or prior to deaccessing for no further use and/or at least every 4 weeks when not accessed. [id number] mL 12/12/2024 11:59 PM CDT 5 01/05/20 25 sodium chloride, PF, 0.9% PF flushIndications:M SSA bacteremia Inject 10 mLs into the vein as needed for line flush. Flush IV before and after med administration as directed and/or at least every 24 hours, or prior to deaccessing for no further use and/or at least every 4 weeks when not accessed. [id number] mL 12/01/2024 11:59 PM CDT 01/05/20 sodium chloride, PF, 0.9% PF flushIndications:M SSA bacteremia Inject 10 mLs into the vein as needed for line flush. Flush IV before and after med administration as directed and/or at least every 24 hours, or prior to deaccessing for no further use and/or at least every 4 weeks when not accessed. [id number] mL 11/28/2024 11:59 PM CDT 01/05/20 documented as of this encounter ED Notes * Marguerite Burgess MD - 12/27/2024 7:12 PM CDT History Chief Complaint Patient presents [...] her of prior sickle cell pain crises. No clear triggers, feels as though hasn't improved since last visits, but hasn't had director child abuse therapy forher kid so logistically couldn't be admitted and continues to be uncomfortable. No new changes. Still diffuse pain, but w/o CP or shortness of breath. No fevers. No new GI/ sx's or changes. No fevers. No traumas or falls. No other new symptoms or concerns reported at this time. Full ROS completedw/o additional findings. 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 No additional pertinent items. REVIEW OF SYSTEMS A complete review of systems was performed with pertinent positives and negatives noted in the HPI,and all other systems negative. Physical Exam BP: 112/78 Pulse: 99 Temp: 98.2 ??F (36.8 ??C) Resp: 18 Height: 154.9 cm (5' 1) Weight: 49.9 kg (110 lb) SpO2: 98 % Physical Exam CONSTITUTIONAL: Awake and alert. 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 Clinically, patient appears nontoxic . Vitals WNL. Otherwise on examination, No obvious emergent findings. Ddx includes, but not limited to, flare of chronic pain, vasocclusive crisis, less likely infectionor or other inflammatory condition, et al. PLAN: - Labs - Symptom management according to ED care plan - Dispo pending ED Course INTERVENTIONS: - IVF, IV Dilaudid RE-EVALUATION: - The patient's symptoms were somewhat improved during ED course. She is requesting discharge - Pt otherwise continues to do well [...] ability at this time. DISPOSITION/PLANNING: IMPRESSION: - Acute on chronic pain in the setting of sickle cell DISPOSITION: - Discharge to home FOLLOW-UP: - PCP, Heme OTHER RECOMMENDATIONS: - Conservative symptom management, strict return instructions Marguerite Burgess MD 12/27/2024 [facility] EMERGENCY [facility]PART[facility] Marguerite Burgess MD 01/03/25 0501 * Lynn Estrada, RN - 12/27/2024 7:06 PM CDT Pt ambulatory into triage with complaints of a sickle cell pain crisis. Reports this is her usual sickle pain, in her back and her legs. Denies CP or dyspnea. Reported the pain has been going on all day and she took PO dilaudid a few hours ago with no relief. VSS in triage. Triage Assessment (Adult) Row Name 12/27/24 9766 Triage Assessment Airway WDL WDL Respiratory WDL Respiratory WDL WDL Skin Circulation/Temperature WDL Skin Circulation/Temperature WDL WDL Cardiac WDL Cardiac WDL WDL Peripheral/Neurovascular WDL Peripheral Neurovascular WDL WDL Cognitive/Neuro/Behavioral WDL Cognitive/Neuro/Behavioral WDL WDL documented in this encounter Plan of Treatment Upcoming Encounters Date Type Department Care Team (Late st Contact Info) Description 02/15/2025 10:30 AM CDT Lab [facility] [address] [phone] Olinda Vora APRN [employer]AURANT [address] [place] [address] 02/15/2025 11:00 AM CDT Oncology Visit [facility] [address] [phone] Olinda Vora APRN [employer]ANT [address] [place] [address] 04/09/2025 3:00 PM TRACER LATHE SET UP 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 Lab [facility] [address] [place] [address] Case Samuel MD [address] [facility] [address] [place], [place] [address] 04/09/2025 3:30 PM TRACER LATHE SET UP OPERATOR Oncology Visit [facility] [address] [place] [address] Case Samuel MD [address] [facility] [address] [place], [place] [phone] documented as of this encounter Goals Goal [...] Diagnosis Comments RBC AND PLATELET MORPHOLOGY STAT 12/27/2024 7:22 PM CDT CBC WITH PLATELETS AND DIFFERENTIAL STAT 12/27/2024 7:22 PM CDT CBC WITH PLATELETS AND DIFFERENTIAL (LIMITED OCCURRENCES) STAT 12/27/2024 7:22 PM CDT COMPREHENSIVE METABOLIC PANEL (LIMITED OCCURRENCES) STAT 12/27/2024 7:22 PM CDT RETICULOCYTE COUNT STAT 12/27/2024 7: 22 PM CDT documented in this encounter Results * (ABNORMAL) RBC and Platelet Morphology (12/27/2024 7:22 PM CDT) Pathologist [facility] RBC Morphology Confirmed RBC Indices 12/27/2024 8:08 PM CDT [facility] Platelet Assessment Automated Count Confirmed. Platelet morphology is normal. Automated Count Confirmed. Platelet morphology is normal. 12/27/2024 8:08 PM CDT [facility] Polychromasia Slight(A) None Seen 12/27/2024 8:08 PM CDT [facility] Sickle Cells Slight(A) None Seen 12/27/2024 8:08 PM CDT [facility] Target Cells Slight(A) None Seen 12/27/2024 8:08 PM CDT [facility] Blood VENOUS LINE / Unknown VAD(CVC, PICC) / Unknown 12/27/2024 7:22 PM CDT 12/27/2024 7:30 PM CDT us Marguerite Burgess MD LAB - BLOOD ORDERABLES Final Result [facility] [place] [facility] [address] [facility], Room [address] [place], [place] [phone] * (ABNORMAL) CBC with platelets and differential (12/27/2024 7:22 PM CDT) Pathologist [facility] WBC Count 11.73(H) 4.00 - 11.00 10e3/uL 12/27/2024 8:08 PM CDT [facility] RBC Count 2.61(L) 3.80 - 5.20 10e6/uL 12/27/2024 8:08 PM CDT [facility] Hemoglobin 8.7(L) 11.7 - 15.7 g/dL 12/27/2024 8:08 PM CDT [facility] Hematocrit 25.4(L) 35.0 - 47.0 % 12/27/2024 8:08 PM CDT [facility] MCV 97.3 78.0 - 100.0 fL 12/27/2024 8:08 PM CDT [facility] MCH 33.3(H) 26.5 - 33.0 pg 12/27/2024 8:08 PM CDT [facility] MCHC 34.3 31.5 - 36.5 g/dL 12/27/2024 8:08 PM CDT [facility] RDW 20.8(H) 10.0 - 15.0 % 12/27/2024 8:08 PM CDT [facility] Platelet Count 421 150 - 450 10e3/uL 12/27/2024 8:08 PM CDT [facility] % Neutrophils 59.1 % 12/27/2024 8:08 PM CDT [facility] % Lymphocytes 24.6 % 12/27/2024 8:08 PM CDT [facility] % Monocytes 14.5 % 12/27/2024 8:08 PM CDT [facility] % Eosinophils 0.5 % 12/27/2024 8:08 PM CDT [facility] % Basophils 0.9 % 12/27/2024 8:08 PM CDT [facility] % Immature Granulocytes 0.4 % 12/27/2024 8:08 PM CDT [facility] NRBCs per 100 WBC 2.1(H) <1.0 /100 12/27/2024 8:08 PM CDT [facility] Absolute Neutrophils 6.93 1.60 - 8.30 10e3/uL 12/27/2024 8:08 PM CDT [facility] Absolute Lymphocytes 2.88 0.80 - 5.30 10e3/uL 12/27/2024 8:08 PM CDT [facility] Absolute Monocytes 1.70(H) 0.00 - 1.30 10e3/uL 12/27/2024 8:08 PM CDT [facility] Absolute Eosinophils 0.06 0.00 - 0.70 10e3/uL 12/27/2024 8:08 PM CDT [facility] Absolute Basophils 0.11 0.00 - 0.20 10e3/uL 12/27/2024 8:08 PM CDT [facility] Absolute Immature Granulocytes 0.05 <=0.40 10e3/uL 12/27/2024 8:08 PM CDT [facility] Absolute NRBCs 0.25 10e3/uL 12/27/2024 8:08 PM CDT [facility] Blood VENOUS LINE / Unknown VAD(CVC, PICC) / Unknown 12/27/2024 7:22 PM CDT 12/27/2024 7:30 PM CDT Marguerite Burgess MD LAB - BLOOD ORDERABLES Final Result Performing Organization Address [facility]/ZIP Co de Phone Number [facility] [place] [facility] [address] [facility], [address] * (ABNORMAL) Reticulocyte count (12/27/2024 7:22 PM CDT) % Reticulocyte 18.32(H) 0.50 - 2.00 % 12/27/2024 8:04 PM CDT [facility] Absolute Reticulocyte 0.4950(H) 0.0250 - 0.0950 10e6/uL 12/27/2024 8:04 PM CDT [facility] Blood VENOUS LINE / Unknown VAD(CVC, PICC) / Unknown 12/27/2024 7:22 PM CDT 12/27/2024 7:30 PM CDT Marguerite Burgess MD LAB - BLOOD ORDERABLES Final Result Performing Organization Address [facility] Co de Phone Number [facility] [place] [facility] [address] [facility], [address] * (ABNORMAL) Comprehensive Metabolic Panel (Limited Occurrences) (12/27/2024 7:22 PM CDT) Sodium 140 135 - 145 mmol/L 12/27/2024 8:00 PM CDT [facility] Potassium 4.3 3.4 - 5.3 mmol/L 12/27/2024 8:00 PM CDT [facility] Carbon Dioxide (CO2) 20(L) 22 - 29 mmol/L 12/27/2024 8:00 PM CDT [facility] Anion Gap 12 7 - 15 mmol/L 12/27/2024 8:00 PM CDT [facility] Urea Nitrogen 6.3 6.0 - 20.0 mg/dL 12/27/2024 8:00 PM CDT [facility] Creatinine 0.61 0.51 - 0.95 mg/dL 12/27/2024 8:00 PM CDT [facility] GFR Estimate >90 >60 mL/min/1.7 3m2 12/27/2024 8:00 PM CDT [facility] Comment:eGFR calculated us2020 CKD-EPI equation. Calcium 9.7 8.8 - 10.4 mg/dL 12/27/2024 8:00 PM CDT [facility] Chloride 108(H) 98 - 107 mmol/L 12/27/2024 8:00 PM CDT [facility] Glucose 99 70 - 99 mg/dL 12/27/2024 8:00 PM CDT [facility] Alkaline Phosphatase 75 40 - 150 U/L 12/27/2024 8:00 PM CDT [facility] AST 33 0 - 45 U/L 12/27/2024 8:00 PM CDT [facility] ALT 20 0 - 50 U/L 12/27/2024 8:00 PM CDT [facility] Protein Total 8.5(H) 6.4 - 8.3 g/dL 12/27/2024 8:00 PM CDT [facility] Albumin 4.8 3.5 - 5.2 g/dL 12/27/2024 8:00 PM CDT [facility] Bilirubin Total 2.1(H) <=1.2 mg/dL 12/27/2024 8:00 PM CDT [facility] Blood VENOUS LINE / Unknown VAD(CVC, PICC) / Unknown 12/27/2024 7:22 PM CDT 12/27/2024 7:29 PM CDT us Marguerite Burgess MD LAB - BLOOD ORDERABLES Final Result [facility] [place] [facility] [address] [facility], [address] [place] [address], [facility] documented in this encounter Visit Diagnoses Diagnosis 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 documented in this encounter Administered Medications Inactive Administered Medications - up to 3 most recent administrations Medication Order MAR Action Action Date Dose Rate Site hydromorphone (DILAUDID) injection 2 mg 2 mg, Intravenous, EVERY 1 HOUR PRN, severe pain, Starting on Wed12/27/24 at 191, For 2 doses $Given 12/27/2024 8:29 PM CDT 2 mg $Given 12/27/2024 7:24 PM CDT 2 mg hydromorphone (DILAUDID) injection 2 mg 2 mg, Intravenous, ONCE, On Wed12/27/24 at 213, For 1 dose $Given 12/27/2024 9:37 PM CDT 2 mg lactated ringers BOLUS 1,000 mL Intravenous, 1,000 mL, ONCE, at 500 mL/hr, Administer over 2 Hours, On Wed12/27/24 at 191, For 1 dose $New Bag 12/27/2024 8:34 PM CDT 1,000 mLs 500 mL/hr documented in this encounter Active and Recently Administered Medications Times are shown in CDT. Scheduled Medication Order 12/25/2024 12/26/2024 12/27/2024 hydromorphone (DILAUDID) injection 2 mg (COMPLETED) 2 mg, Intravenous, ONCE, On Wed12/27/24 at 213, For 1 dose 2136 ($Given - Provi nas: Randall Russell RN) lactated ringers BOLUS 1,000 mL (COMPLETED) Intravenous, 1,000 mL, ONCE, at 500 mL/hr, Administer over 2 Hours, On Wed12/27/24 at 191, For 1 dose 2033 ($New Bag - Pro vider: Randall Russell RN)2148 (Stopped - Provider: Randall Russell RN) PRN Medication Order 12/25/2024 12/26/2024 12/27/2024 hydromorphone (DILAUDID) injection 2 mg (COMPLETED) 2 mg, Intravenous, EVERY 1 HOUR PRN, severe pain, Starting on Wed12/27/24 at 191, For 2 doses 1923 ($Given - Provi nas: Juliana Das RN)2028 ($Given - Provider: Randall Russell RN) documented in this encounter Care Teams Glass Cleaner Relationship Specialty Start Date End Date Veronica Joseph MD [address] [place] [address] PCP - General Family Medicine 06/18/24 Mor Ramsey Medical Student 04/03/24 Case Samuel MD [address] [facility] [place] [address] Assigned Pediatric Specialist Provider 05/18/24 Juhi Benson, SOFIA Specialty Form Setter Helper Hematology & Oncology 05/29/24 Olinda Vora APRN [employer]ANT [address] [place] [phone] Assigned Cancer Care Provider 08/16/24 Stiven Stanley LP [address] [place] [address] Psychologist PSYCHOLOGIST CLINICAL 10/25/24 Star Galarza MD [employer] [address] [place], [place] [phone] Home Infusion Following Provider Infectious Diseases 11/07/24 Aliyah Hudson RN Home Infusion Space Controller 11/16/24 01/04/25 documented as of this encounter
--- OUTSIDE RECORDS SUMMARY | 2024-12-29 18:02 | XMS_ITS | Encounter Summary ---
Author Organization [facility] Address [address] [place] [id number] Care Team Providers Care Vp Training Name Role Phone Roxy Mor Unavailable Unavailable Case Samuel MD Unavailable [phone] Juhi Benson RN Unavailable Unavailable Veronica Joseph MD Primary Care Provider [phone] Olinda Vora APRN RECONCILIATION ACCOUNTANT Unavailable [phone] Stiven Stanley Unavailable Star Galarza MD Unavailable [phone] Aliyah Hudson RN Unavailable Unavailable Reason for Visit * Reason Comments Sickle Cell Pain Crisis * Auth/Cert Specialty Diagnoses / Procedures Referred By Shahid pendleton Referred To Contact EMERGENCY MEDICINE Diagnoses Sickle cell pain crisis (H) Vasiliy Sheffield MD [address] [place] [phone] Phone: tel: fax: [facility] Emergency Department [address] [place] [address] Phone: tel: Referral ID Status Reason Start Date Expiration Date Visits Re quested Visits Authorized [id number] 1 1 Encounter Details Date Type Department Care Team (Latest Contact Info) Description 12/29/2024 6:02 PM CDT - 12/31/2024 2:00 PM CDT Hospital Encounter [facility] [address] [place] [id number] Marguerite Burgess MD [address] [place] [phone] Vasiliy Sheffield MD [address] [place] [address] [phone] Noel Amaro MD [address] [place] [id number] Sickle cell pain crisis (H) (Primary Dx); MCC (current) use of anticoagulants; Status post cholecystectomy Discharge Disposition: Left Against Medical Advice Social History Tobacco Use Types Packs/Day Years [...] an overnight skilled nursing, or couch-surfing.) Yes 11/09/2024 Are you worried [...] motionally safe where you currently live? Yes 12/30/2024 Within the past 12 months, h ave you been hit, slapped, kicked or otherwise physically hurt by someone? No 12/30/2024 Within the past 12 months, h ave you been humiliated or emotionally abused in other ways by your partner or ex-partner? 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 Gender Identity Not on file Sexual Orientation Not on file documented as of this encounter Last Filed Vital Signs Vital Sign Reading Time Taken Comments Blood Pressure 107/68 12/31/2024 8:41 AM CDT Pulse 92 12/31/2024 8:41 AM CDT Temperature 37.2 C (98.9 F) 12/31/2024 8:41 AM CDT Respiratory Rate 18 12/31/2024 8:41 AM CDT Oxygen Saturation 98% 12/31/2024 8:41 AM CDT Inhaled Oxygen Concentration - - Weight - - Height - - Body Mass Index - - documented in this encounter Discharge Summaries * Noel Amaro MD - 12/31/2024 10:06 AM CDT [facility] Hospitalist Discharge Summary Date of Admission: 12/29/2024 Date of Discharge: 12/31/2024, Left against medical advice Discharging Provider: Noel Amaro MD Discharge Service: Hospitalist Service, [facility] TEAM 21 Discharge Diagnoses Sickle Cell Pain Crisis Right Atrial Mass, presumed thrombus Clinically Significant Risk Factors Follow-ups Needed After Discharge N/A, left against medical advice Unresulted Labs Ordered in the Past 30 Days of this Admission Date and Time Order Name Status Description 12/29/2024 9:48 PM Blood Culture Peripheral blood (BC) Hand, Left Preliminary 12/29/2024 9:25 PM Blood Culture Line (BC) Line, arterial Preliminary These results will be followed up by the [facility] hospitalist team Discharge Disposition Left Against Medical Advice Hospital Course Lew Hernández is a 29 year old female admitted on 12/29/2024. 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 Presented to the ED with symptoms of sickle cell vaso-occlusive pain crisis and is admitted to the hospital medicine team. Repeat TTE showed similar right atrial thrombus. Discussed with cardiology and ID. Needs MANUEL, patient plans to get this outpatient. ID stated patient should have PICC removed. Patient could not stay longer due to childcare issues and elected to leave against medical advice. #sickle cell vaso-occlusive pain crisis Presents with pain crisis. Precipitant unclear. Follows with adventure guide Dr. Samuel. History of complications including CVA, avascular necrosis of left hip, iron overload, retinopathy, PE, acute chest syndrome , and functional asplenia. On admission, Hgb 7.[address] 0.3236. Baseline hemoglobin appears ~8g/dL. No symptoms of acute chest on admission. Last acute chest episode in 2023. History of one intubation for acute chest. 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 Did not have TTE/MANUEL at that time. Completed 4 wk IV cefazolin course as OP via PICC. On 12/01 had TTE which showedLVEF 60-65%, echodensity in right atrium attached to lateral wall and echodensity on posterior tricuspid valve leaflet concerning for possible vegetation with mild/moderate tricuspid regurg. MANUEL was recommended, but patient had to be discharged due to childcare concerns. Plan was to extend IV abx therapy to 6 weeks and have prompt OP MANUEL for which no scheduling has yet occurred. Per, TTE was veryconcerning for TV endocarditis and needed MANUEL to delineate if medical therapy alone is appropriate but may not be solely amenable. Is currently afebrile and hemodynamically stable. Blood cultures have been neg since 11/10 (last on 12/11). -TTE demonstrating RA mass, tricuspid findings have resolved -Discussed with cardiology, same recommendations as before. Anticoagulation and MANUEL when able. -ID consulted given hx of MSSA bacteremia and possible endocarditis -Repeat blood cultures -Remove PICC before leaving # Hx VTE UE DVT (2023), bilateral PE (06/2024). R/o right atrial clot as per TTE findings above. 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 ADULT IP CONSULT Code Status Full Code Time Spent on this Encounter I, Noel Amaro MD, personally saw the patient today and spent greater than 30 minutes discharging this patient. Noel Amaro MD [facility] [address] [facility] [id number] Physical Exam Vital Signs: Temp: 98.9 ??F (37.2 ??C) Temp src: Oral BP: 107/68 Pulse: 92 Resp: 18 SpO2: 98 % O2 Device: None (Room air) Weight: 0 lbs 0 oz Exam Gen: Awake and alert, appears comfortable laying flat in bed CV: Regular rhythm and rate, extremities warm and well perfused, no lower extremity edema. Pulm: Normal work of breathing, lungs clear to auscultation, no crackles or wheezing. GI: Nontender, nondistended Skin: Warm, dry, no jaundice. Neuro: Answering questions appropraitely, speech normal, moves all extremities symmetrically. Primary Care Physician Veronica Joseph Discharge Orders No discharge procedures on file. Significant Results and Procedures Most Recent 3 CBC's: Recent Labs Lab Test 12/31/24 0613 12/30/24 0552 12/29/24 1824 WBC 13.19* 14.47* 14.61* HGB 7.4* 7.3* 7.6* MCV 94.0 94.7 97.7 PLT 340 316 340 Most Recent 3 BMP's: Recent Labs Lab Test 12/31/24 0613 12/29/24 1824 12/27/24 1922 NA 135 138 140 POTASSIUM 4.3 4.1 4.3 CHLORIDE 103 106 108* CO2 24 22 20* BUN 7.9 10.9 6.3 CR 0.54 0.70 0.61 ANIONGAP 8 10 12 EVELIN 8.6* 8.9 9.7 GLC 99 99 99 Discharge Medications Review of your medicines UNREVIEWED medicines. Ask your doctor about these medicines Dose / Directions apixaban ANTICOAGULANT 5 MG tablet Commonly known as: ELIQUIS Used for: Acute pulmonary embolism without acute cor pulmonale, unspecified pulmonary embolism type(H) Dose: 5 mg Take 1 tablet (5 mg) by mouth 2 times daily. Refills: 0 diphenhydrAMINE 25 MG tablet Commonly known as: BENADRYL Dose: 1-2 tablet Take 1-2 tablets by mouth every 6 hours as needed for itching. Refills: 0 EPINEPHrine 0.3 MG/0.3ML injection 2-pack Commonly known as: ANY BX GENERIC EQUIV Dose: 0.3 mg Inject 0.3 mg into the muscle as needed for anaphylaxis. May repeat one time in 5-15 minutes if response to initial dose is inadequate. Refills: 0 FLUoxetine 40 MG capsule Commonly known as: PROzac Used for: Severe episode of recurrent major depressive disorder, without psychotic features (H) Dose: 40 mg Take 1 capsule (40 mg) by mouth daily. 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 1 Week supply. 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 Quantity: 30 tablet Refills: 11 naloxone 4 MG/0.1ML nasal spray Commonly known as: NARCAN Dose: 4 mg Crimora 1 spray (4 mg) into one nostril alternating nostrils as needed for opioid reversal (for opiate overdose if not breathing and unconscious. have your family member watch video on how to use/read information sheet). every 2-3 minutes until assistance arrives Quantity: 2 each Refills: 0 ondansetron 4 MG ODT tab Commonly known as: ZOFRAN ODT Used for: Gallstones Dose: 4 mg Take 1 tablet (4 mg) by mouth every 6 hours as needed for nausea or vomiting. Quantity: 20 tablet Refills: 0 polyethylene glycol 17 GM/Dose powder Commonly known as: MIRALAX Used for: Sickle cell pain crisis (H) Dose: 17 g Take 17 g by mouth 2 times daily as needed for constipation. Quantity: 510 g Refills: 3 senna-docusate 8.6-50 MG tablet Commonly known as: SENOKOT-S/PERICOLACE Used for: Sickle cell pain crisis (H) Dose: 2 tablet Take 2 tablets by mouth 2 times daily as needed for constipation. 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 30 tablet 11 5 naloxone (NARCAN) 4 MG/0.1ML nasal spray Crimora 1 spray (4 mg) into one nostril [...] push every 8 hours for 8 days. [id number] mL 12/01/2024 11:59 PM CDT 5 01/05/20 ceFAZolin (ANCEF) injectionIndicatio ns:MSSA bacteremia Inject 20 mLs (2 g) over 5-10 minutes into the vein via push every 8 hours for 24 days. [id number] mL 11/28/2024 11:59 PM CDT 5 01/05/20 Emergency Supply Kit, [place],Indication s:MSSA bacteremia Patient use for emergency only. Contents: 3 sodium chloride 0.9% flushes, 1 dressing kit, 1 microclave ext set 14, 4 nitrile gloves (med), 6 alcohol prep pads, 1 bacitracin, 1 syringe (10 cc 20 G 1). Call to reorder. [id number] kit 5 01/05/20 Emergency Supply Kit, [place],Indication s:MSSA bacteremia Patient use for emergency only. Contents: 3 sodium chloride 0.9% flushes, 1 dressing kit, 1 microclave ext set 14, 4 nitrile gloves (med), 6 alcohol prep pads, 1 bacitracin, 1 syringe (10 cc 20 G 1). Call to reorder. [id number] kit 5 01/05/20 Emergency Supply Kit, [place],Indication s:MSSA bacteremia Patient use for emergency only. Contents: 3 sodium chloride 0.9% flushes, 1 dressing kit, 1 microclave ext set 14, 4 nitrile gloves (med), 6 alcohol prep pads, 1 bacitracin, 1 syringe (10 cc 20 G 1). Call to reorder. 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 1 Week supply. No early refills 24 tablet 5 01/09/20 25 Port Access KitIndications:RIMA A bacteremia For nurse use only. Do not remove items from bag. Use for port access. Do not place syringe on sterile field. [id number] kit 5 01/05/20 25 Port Access KitIndications:RIMA A bacteremia For nurse use only. Do not remove items from bag. Use for port access. Do not place syringe on sterile field. [id number] kit 5 01/05/20 25 Port Access KitIndications:RIMA A bacteremia For nurse use only. Do not remove items from bag. Use for port access. Do not place syringe on sterile field. [id number] kit 11/28/2024 11:59 PM CDT 5 01/05/20 25 sodium chloride, PF, 0.9% PF flushIndications:M SSA bacteremia Inject 10 mLs into the vein as needed for line flush. Flush IV before and after med administration as directed and/or at least every 24 hours, or prior to deaccessing for no further use and/or at least every 4 weeks when not accessed. [id number] mL 12/12/2024 11:59 PM CDT 5 01/05/20 25 sodium chloride, PF, 0.9% PF flushIndications:M SSA bacteremia Inject 10 mLs into the vein as needed for line flush. Flush IV before and after med administration as directed and/or at least every 24 hours, or prior to deaccessing for no further use and/or at least every 4 weeks when not accessed. [id number] mL 12/01/2024 11:59 PM CDT 5 01/05/20 25 sodium chloride, PF, 0.9% PF flushIndications:M SSA bacteremia Inject 10 mLs into the vein as needed for line flush. Flush IV before and after med administration as directed and/or at least every 24 hours, or prior to deaccessing for no further use and/or at least every 4 weeks when not accessed. [id number] mL 11/28/2024 11:59 PM CDT 5 01/05/20 25 documented as of this encounter Progress Notes * Noel Amaro MD - 12/31/2024 10:07 AM CDT [facility] Medicine Progress Note - Hospitalist Service, [facility] TEAM 21 Date of Admission: 12/29/2024 Assessment & Plan Lew Hernández is a 29 year old female admitted on 12/29/2024. 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 Presented to the ED with symptoms of sickle cell vaso-occlusive pain crisis and is admitted to the hospital medicine team. Updates -See plan of care note -Tentatively expecting her to leave AMA today #sickle cell vaso-occlusive pain crisis Presents with pain crisis. Precipitant unclear. Follows with adventure guide Dr. Samuel. History of complications including CVA, avascular necrosis of left hip, iron overload, retinopathy, PE, acute chest syndrome , and functional asplenia. On admission, Hgb 7.[address] 0.3236. Baseline hemoglobin appears ~8g/dL. No symptoms of acute chest on admission. Last acute chest episode in 2023. History of one intubation for acute chest. -consult to hematology, routine -IVF: crystalloid maintenance x 2 days -pain management: -Pain plan recommends dilaudid 2mg IV q3. Was started on q2 hours on admit due to uncontrolled pain. 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 Did not have TTE/MANUEL at that time. Completed 4 wk IV cefazolin course as OP via PICC. On 12/01 had TTE which showedLVEF 60-65%, echodensity in right atrium attached to lateral wall and echodensity on posterior tricuspid valve leaflet concerning for possible vegetation with mild/moderate tricuspid regurg. MANUEL was recommended, but patient had to be discharged due to childcare concerns. Plan was to extend IV abx therapy to 6 weeks and have prompt OP MANUEL for which no scheduling has yet occurred. Per, TTE was veryconcerning for TV endocarditis and needed MANUEL to delineate if medical therapy alone is appropriate but may not be solely amenable. Is currently afebrile and hemodynamically stable. Blood cultures have been neg since 11/10 (last on 12/11). -TTE demonstrating RA mass, tricuspid findings have resolved -Discussed with cardiology, same recommendations as before. Anticoagulation and MANUEL when able. -ID consulted given hx of MSSA bacteremia and possible endocarditis # Hx VTE UE DVT (2023), bilateral PE (06/2024). R/o right atrial clot as per TTE findings above. 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 TEAM [address] [place] [address] Securely message with [email or web address] (more info) Text page via [facility] Paging/Directory See signed in provider for up to date coverage information Interval History -No acute events overnight -Discussed her TTE. States she knows she needs a MANEUL but cannot stay for one and will work on scheduling one outpatient -Discussed dilaudid reduction. States that hematology said they would not reduce it until they saw her. Physical Exam Vital Signs: Temp: 98.9 ??F (37.2 ??C) Temp src: Oral BP: 107/68 Pulse: 92 Resp: 18 SpO2: 98 % O2 Device: None (Room air) Weight: 0 lbs 0 oz Exam Gen: Awake and alert, appears comfortable laying flat in bed CV: Regular rhythm and rate, extremities warm and well perfused, no lower extremity edema. Pulm: Normal work of breathing, lungs clear to auscultation, no crackles or wheezing. GI: Nontender, nondistended Skin: Warm, dry, no jaundice. Neuro: Answering questions appropraitely, speech normal, moves all extremities symmetrically. Medical Decision Making 51 MINUTES SPENT BY ME on the date of service doing chart review, history, exam, documentation & further activities per the note. Data PAST 24 HR DATA REVIEWED I have personally reviewed the following data over the past 24 hrs: 13.19 (H) \ 7.4 (L) / 340 135 103 7.9 / 99 4.3 24 0.54 \ Procal: N/A CRP: 18.86 (H) Lactic Acid: N/A Imaging results reviewed over the past 24 hrs: Recent Results (from the past 24 hours) Echocardiogram Complete *Canceled* Narrative The following orders were created for panel order Echocardiogram Complete. Procedure Abnormality Status --------- ------ Please view results for these tests on the individual orders. Echo Limited Result Value LVEF 60-65% Narrative [id number]^JORGE^MARIAM^LEISA [facility] [address] [place] [id number] Name: LEW HERNÁNDEZ : 1995 Study Date: 12/30/2024 10:06 AM Age: 29 yrs Gender: Female Patient Location: [facility] Reason For Study: Murmur, Endocarditis Ordering Physician: MARIAM STYLES Performed By: Flaquita Michel RDCS BSA: 1.4 m2 Height: 60 in Weight: 110 lb BP: 98/56 mmHg Procedure Limited Echocardiogram with two-dimensional, color and spectral Doppler. Interpretation Summary Global and regional left ventricular function is normal with an EF of 60-65%. Global right ventricular function is normal. Echodensity in the right atrium attached to the lateral wall just below the tricuspid annulus is again seen. Right atrial thombus cannot be excluded. A catheter is noted in the right atrium. Previously seen echodensity on the posterior tricuspid valve leaflet is not seen today. Mild tricuspid insufficiency is present. The inferior vena cava was normal in size with preserved respiratory variability. No pericardial effusion is present. As previously recommended, a MANUEL for better visualization of the tricuspid valve and the right atrial echodensity would be reasonable. Left Ventricle Global and regional left ventricular function is normal with an EF of 60-65%. Right Ventricle The right ventricle is normal size. Global right ventricular function is normal. Atria There is an echodensity in the right atrium attached to the lateral wall just below the tricuspid annulus with mobile components, thombus cannot be excluded. A catheter is noted in the right atrium. Tricuspid Valve Previously seen echodensity on the posterior tricuspid valve leaflet is not seen today. Mild tricuspid insufficiency is present. The right ventricular systolic pressure is approximated at 26.6 mmHg plus the right atrial pressure. Pulmonary artery systolic pressure is normal. Vessels The inferior vena cava was normal in size with preserved respiratory variability. Pericardium No pericardial effusion is present. MMode/2D Measurements & Calculations TAPSE: 2.9 cm Doppler Measurements & Calculations TR max lj: 258.0 cm/sec TR max P.6 mmHg RV S Lj: 14.7 cm/sec Report approved by: Paula Mriamontes MD on 12/30/2024 12:41 PM * Noel Amaro MD - 12/30/2024 10:17 AM CDT [facility] Medicine Progress Note - Hospitalist Service, [facility] TEAM 21 Date of Admission: 12/29/2024 Assessment & Plan Lew Hernández is a 29 year old female admitted on 12/29/2024. 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 Presented to the ED with symptoms of sickle cell vaso-occlusive pain crisis and is admitted to the hospital medicine team. Updates -Changed dilaudid to q2 PRN, discussed downtitrating. Patient will see hematology first -Will follow up TTE -CRP low at 3.4 -Per H&P patient is eager to discharge Wednesday evening due to childcare concerns #sickle cell vaso-occlusive pain crisis Presents with pain crisis. Precipitant unclear. Follows with adventure guide Dr. Samuel. History of complications including CVA, avascular necrosis of left hip, iron overload, retinopathy, PE, acute chest syndrome , and functional asplenia. On admission, Hgb 7.[address] 0.3236. Baseline hemoglobin appears ~8g/dL. No symptoms of acute chest on admission. Last acute chest episode in 2023. History of one intubation for acute chest. -consult to hematology, routine -IVF: crystalloid maintenance x 2 days -pain management: -Pain plan recommends dilaudid 2mg IV q3. Was started on q2 hours on admit due to uncontrolled pain. 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 Did not have TTE/MANUEL at that time. Completed 4 wk IV cefazolin course as OP via PICC. On 12/01 had TTE which showedLVEF 60-65%, echodensity in right atrium attached to lateral wall and echodensity on posterior tricuspid valve leaflet concerning for possible vegetation with mild/moderate tricuspid regurg. MANUEL was recommended, but patient had to be discharged due to childcare concerns. Plan was to extend IV abx therapy to 6 weeks and have prompt OP MANUEL for which no scheduling has yet occurred. Per, TTE was veryconcerning for TV endocarditis and needed MANUEL to delineate if medical therapy alone is appropriate but may not be solely amenable. Is currently afebrile and hemodynamically stable. Blood cultures have been neg since 11/10 (last on 12/11). -repeat TTE -consider cardiology consult pending TTE results -repeat blood cultures x 2 # Hx VTE UE DVT (2023), bilateral PE (06/2024). R/o right atrial clot as per TTE findings above. 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 daily Diet: Regular Diet Adult DVT Prophylaxis: DOAC Santiago Catheter: Not present Lines: PRESENT Cardiac Monitoring: None Code Status: Full Code Clinically Significant Risk Factors Present on Admission # Drug Induced Coagulation Defect: home medication list includes an anticoagulant medication # Anemia: based on hgb <11 # Financial/Environmental Concerns: Social Drivers of Health Disposition Plan Medically Ready for Discharge: Anticipated Tomorrow Noel Amaro MD Hospitalist Service, GOLD TEAM 21 [facility] Securely message with [email or web address] (more info) Text page via [facility] Paging/Directory See signed in provider for up to date coverage information Interval History -Admitted overnight -States she still feels very unwell -Aware she will get a TTE today and see hematology -Discussed reducing dilaudid to q3 hours and she expressed significant concern about being able to tolerate it. After extensive discussion opted to keep it at q2 (change to PRN for regulations) untilseen by heme team Physical Exam Vital Signs: Temp: 98 ??F (36.7 ??C) Temp src: Oral BP: 102/64 Pulse: 81 Resp: 16 SpO2: 95 % O2 Device: None (Room air) Weight: 0 lbs 0 oz Exam Gen: Awake and alert, appears comfortable laying flat in bed CV: Regular rhythm and rate, extremities warm and well perfused, no lower extremity edema. Pulm: Normal work of breathing, lungs clear to auscultation, no crackles or wheezing. GI: Nontender, nondistended Skin: Warm, dry, no jaundice. Neuro: Answering questions appropraitely, speech normal, moves all extremities symmetrically. Medical Decision Making 50 MINUTES SPENT BY ME on the date of service doing chart review, history, exam, documentation & further activities per the note. Data PAST 24 HR DATA REVIEWED I have personally reviewed the following data over the past 24 hrs: 14.47 (H) \ 7.3 (L) / 316 138 106 10.9 / 99 4.1 22 0.70 \ ALT: 15 AST: 34 AP: 67 TBILI: 1.6 (H) ALB: 4.2 TOT PROTEIN: 7.5 LIPASE: N/A Procal: 0.06 CRP: 3.41 Lactic Acid: 1.0 INR: 1.37 (H) PTT: N/A D-dimer: N/A Fibrinogen: N/A Ferritin: N/A % Retic: 15.64 (H) LDH: N/A Imaging results reviewed over the past 24 hrs: Recent Results (from the past 24 hours) Echocardiogram Complete *Canceled* Narrative The following orders were created for panel order Echocardiogram Complete. Procedure Abnormality Status --------- ------ Please view results for these tests on the individual orders. Echocardiogram Complete *Canceled* Narrative The following orders were created for panel order Echocardiogram Complete. Procedure Abnormality Status --------- ------ Please view results for these tests on the individual orders. documented in this encounter H&P Notes * Mariam Styles APRN RECONCILIATION ACCOUNTANT - 12/29/2024 8:50 PM CDT [facility] History and Physical - Hospitalist Service, [facility] TEAM Date of Admission: 12/29/2024 Assessment & Plan Lew Hernández is a 29 year old female admitted on 12/29/2024. 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 Presented to the ED with symptoms of sickle cell vaso-occlusive pain crisis and is admitted to the hospital medicine team. #sickle cell vaso-occlusive pain crisis Presents with pain crisis. Precipitant unclear. Follows with adventure guide Dr. Samuel. History of complications including CVA, avascular necrosis of left hip, iron overload, retinopathy, PE, acute chest syndrome , and functional asplenia. On admission, Hgb 7.[address] 0.3236. Baseline hemoglobin appears ~8g/dL. No symptoms of acute chest on admission. Last acute chest episode in 2023. History of one intubation for acute chest. -consult to hematology, routine -IVF: crystalloid maintenance x 2 days -pain management: -2mg IV dilaudid every 2 hours scheduled, per pain plan is every 3 hours. Okay for every 2 hours this evening and undress in a.m. 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 Did not have TTE/MANUEL at that time. Completed 4 wk IV cefazolin course as OP via PICC. On 12/01 had TTE which showedLVEF 60-65%, echodensity in right atrium attached to lateral wall and echodensity on posterior tricuspid valve leaflet concerning for possible vegetation with mild/moderate tricuspid regurg. MANUEL was recommended, but patient had to be discharged due to childcare concerns. Plan was to extend IV abx therapy to 6 weeks and have prompt OP MANUEL for which no scheduling has yet occurred. Per, TTE was veryconcerning for TV endocarditis and needed MANUEL to delineate if medical therapy alone is appropriate but may not be solely amenable. Is currently afebrile and hemodynamically stable. Blood cultures have been neg since 11/10 (last on 12/11). -repeat TTE -consider cardiology consult pending TTE results -repeat blood cultures x 2 -add CRP to previous labs # Hx VTE UE DVT (2023), bilateral PE (06/2024). R/o right atrial clot as per TTE findings above. 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 Sheffield, Bedside Nurse, and Patient. 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 Presented to the ED with symptoms of sickle cell vaso-occlusive pain crisis. 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 Had two ports: one for apheresisand one for meds - Ports removed due to sepsis and high fever (105.8??F), new access placed (PICC) - Completed antibiotics last week - cefazolin - Echocardiogram performed approximately 3-4 weeks ago showed possible infection - History of endocarditis six years ago - Reports itching, uses Benadryl for symptom control - Requests medication for sleep due to difficulty sleeping - Emotional distress, reports feeling overwhelmed by ongoing health issues - States she will need to go home Wednesday evening due to lack of childcare for her toddler during the week Past Medical History Past Medical History: Diagnosis [...] sickle retinopathy Sickle cell anemia Past Surgical History Past Surgical History: Procedure Laterality Date ARTHROPLASTY KNEE Left details unclear IR CHEST PORT PLACEMENT > 5 YRS OF AGE 105/25/2024 IR CHEST PORT PLACEMENT > 5 YRS OF AGE 105/25/2024 REMOVE PORT VASCULAR ACCESS Bilateral 11/10/2024 Procedure: REMOVAL, VASCULAR ACCESS PORT; Surgeon: Salvador Contreras MD; Location: [facility] OR TONSILLECTOMY & ADENOIDECTOMY Bilateral Prior to Admission Medications Prior to Admission Medications Prescriptions Last Dose Informant Patient Reported? Taking? EPINEPHrine (ANY BX GENERIC EQUIV) 0.3 MG/0.3ML injection 2-pack Self, Other Yes No Sig: Inject 0.3 mg into the muscle as needed for anaphylaxis. May repeat one time in 5-15 minutes if response to initial dose is inadequate. FLUoxetine (PROZAC) 40 MG capsule Self, Other No No Sig: Take 1 capsule (40 mg) by mouth daily. HYDROmorphone (DILAUDID) 2 MG tablet No No Sig: Take 1 tablet (2 mg) by mouth every 6 hours as needed for severe pain or breakthrough pain. 1 Week supply. No early refills apixaban ANTICOAGULANT (ELIQUIS) 5 MG tablet Self, Other No No Sig: Take 1 tablet (5 mg) by mouth 2 times daily. diphenhydrAMINE (BENADRYL) 25 MG tablet Self, Other [...] times daily multivitamin, therapeutic (THERA-VIT) TABS tablet Self, Other No No Sig: Take 1 tablet by mouth daily. naloxone (NARCAN) 4 MG/0.1ML nasal spray Self, Other No No Sig: Crimora 1 spray (4 mg) into one nostril alternating nostrils as needed for opioid reversal (for opiate overdose if not breathing and unconscious. have your family member watch video on how to use/read information sheet). every 2-3 minutes until assistance arrives ondansetron (ZOFRAN ODT) 4 MG ODT tab Self, Other No No Sig: Take 1 tablet (4 mg) by mouth every 6 hours as needed for nausea or vomiting. polyethylene glycol (MIRALAX) 17 GM/Dose powder Self, Other No No Sig: Take 17 g by mouth 2 times daily as needed for constipation. senna-docusate (SENOKOT-S/PERICOLACE) 8.6-50 MG tablet Self, Other No No Sig: Take 2 tablets by mouth 2 times daily as needed for constipation. Facility-Administered Medications: None Physical Exam Vital Signs: Temp: 98.8 ??F (37.1 ??C) Temp src: Oral BP: 98/56 Pulse: 89 Resp: 16 SpO2: 98 % O2 Device: None (Room air) Physical Exam Vitals and nursing note reviewed. Constitutional: General: She is in acute distress (pain). Cardiovascular: Rate and Rhythm: Normal rate and regular rhythm. Heart sounds: Murmur heard. Systolic murmur is present. Pulmonary: Effort: Pulmonary effort is normal. No respiratory distress. Breath sounds: Normal breath sounds. Abdominal: Tenderness: There is no guarding. Skin: General: Skin is warm and dry. Neurological: General: No focal deficit present. Mental Status: She is alert and oriented to person, place, and time. Mental status is at baseline. Psychiatric: Mood and Affect: Mood normal. Medical Decision Making 75 MINUTES SPENT BY ME on the date of service doing chart review, history, exam, documentation & further activities per the note. Data I have personally reviewed the following data over the past 24 hrs: 14.61 (H) \ 7.6 (L) / 340 138 106 10.9 / 99 4.1 22 0.70 \ ALT: 15 AST: 34 AP: 67 TBILI: 1.6 (H) ALB: 4.2 TOT PROTEIN: 7.5 LIPASE: N/A Procal: N/A CRP: 3.41 Lactic Acid: 1.0 INR: 1.37 (H) PTT: N/A D-dimer: N/A Fibrinogen: N/A Ferritin: N/A % Retic: 14.71 (H) LDH: N/A documented in this encounter Consult Notes * Tatiana Bowser MD - 12/31/2024 11:15 AM CDTAssociated Order(s): INFECTIOUS DISEASE [facility] ADULT IP CONSULT Images from the original note were not included. General ID Service: Initial Consultation Patient: Lew Hernández, Date of 1995, Date of Visit: December 31, 2024 Consult Requested by: Dr. 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 Sickle cell crisis Functional Asplenia She has had a port which this MSSA was associated but removed and replaced Has picc in place x 46 days Picc culture growing diphtheroids in 1/2 bottles Recommendations: Repeat blood cultures Pull picc as she has completed 6 weeks Ensure order is in for outpatient MANUEL, she says she will get it done She can have port replaced after MANUEL done assuming no new concerns for endocarditis She does not need other antibiotics unless repeat blood cultures concerning Discussion: Complex patient with sickle cell who had port associated MSSA bacteremia in October and 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 She has had appropriate antibiotic therapy x 6 weeks but has never had a MANUEL. Now TTE showing a new mass on the heart wall. She has been appropriately treated so I doubt this is new infection. I would not treat. However, she should get the MANUEL given evolving findings and tricuspid insufficiency. Blood culture 1/2 growing diphteroids almost certainly a contaminant. Would not treat but would pull her picc. She should not need it now. She may have the port replaced per my perspective but she needs the MANUEL done first to ensure there is not something else requiring intervention first. We will sign off but please call us back with questions or if she stays and has further questions. Attestation: I have reviewed today's vital signs, medications, labs and imaging. Tatiana Bowser MD Pager [phone] History of Present Illness: Patient is a 29 year old woman with a hx of sickle cell disease, functional asplenia, and MSSA bacteremia with presumed Tricuspid valved endocarditis s/p 6 weeks of IV cefazolin who presents with a pain crisis. On 12/01 had TTE which showed LVEF 60-65%, echodensity in right atrium attached to lateral wall and echodensity on posterior tricuspid valve leaflet concerning for possible vegetation with mild/moderate tricuspid regurg. MANUEL was recommended, but patient had to be discharged due to childcare concerns.Plan was to 6 weeks and have prompt OP MANUEL. She has had the IV cefazolin for 6 weeks completing it l ast week. However, she has never had the MANUEL. She is interested in getting her port back but has not been able to get it replaced. She had a TTE this admission which showed: Echodensity in the right atrium attached to the lateral wall just below the tricuspid annulus is again seen. Right atrial thombus cannot be excluded. A catheter is noted in the right atrium. Previously seen echodensity on the posterior tricuspid valve leaflet is not seen today. Mild tricuspid insufficiency is present. She is here for a pain crisis. She denies fevers or chills. No night sweats. She again reports needing to leave tonight due to no principal statistical scientist this week. Review of Systems: Full 12 point ROS obtained, pertinent positives and negatives as above. 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, [facility]cath in [facility] Functional asplenia History of stroke related to [...] Location: [facility] OR TONSILLECTOMY & ADENOIDECTOMY Bilateral Allergies: Allergies Allergen Reactions Banana Anaphylaxis, Hives [...] nut Tramadol Hives Cashew Nut Oil Hives Current Antimicrobials: None Family History: Family History Problem Relation Age [...] Concern Not on file Social History Narrative [id number] mom. Recently moved to [place] from [place], [place]. She is 1 of 9 children. She lives with her boyfriend and 2-year-old daughter (Apr 2024). Social Drivers of Health Financial Resource Strain: Low Risk (11/09/2024) Financial Resource Strain Within the past 12 months, have you or your family members you live with been unable to get utilities (heat, electricity) when it was really needed?: No Food Insecurity: Low Risk (11/09/2024) Food Insecurity Within the past 12 months, did you worry that your food would run out before you got money to buy more?: No Within the past 12 months, did the food you bought just not last and you didn???t have money to getmore?: No Transportation Needs: Low Risk (11/09/2024) Transportation Needs Within the past 12 months, has lack of transportation kept you from medical appointments, getting your medicines, non-medical meetings or appointments, work, or from getting things that you need?: No Physical Activity: Not on file Stress: Not on file Social Connections: Socially Integrated (03/28/2024) [facility] Do you often feel lonely or isolated from those around you?: 0 Interpersonal Safety: Low Risk (12/30/2024) Interpersonal Safety Do you feel physically and emotionally safe where you currently live?: Yes Within the past 12 months, have you been hit, slapped, kicked or otherwise physically hurt by someone?: No Within the past 12 months, have you been humiliated or emotionally abused in other ways by your partner or ex-partner?: No Housing Stability: Low Risk (11/09/2024) Housing Stability Do you have housing? : Yes Are you worried about losing your housing?: No Physical Exam: Ranges forvital signs: Temp: [98.5 ??F (36.9 ??C)-98.9 ??F (37.2 ??C)] 98.9 ??F (37.2 ??C) Pulse: [80-92] 92 Resp: [16-18] 18 BP: (97-107)/(53-68) 107/68 SpO2: [96 %-98 %] 98 % No intake or output data in the 24 hours ending 12/31/24 1115 Exam: GENERAL: well-developed, well-nourished, sitting in bed in no acute distress. ENT: Head is normocephalic, atraumatic. Oropharynx is moist without exudates or ulcers. EYES: Eyes have anicteric sclerae. NECK: Supple. LUNGS: Clear to auscultation. CARDIOVASCULAR: Regular rate and rhythm with no murmurs, gallops or rubs. ABDOMEN: Normal bowel sounds, soft, nontender. EXT: Extremities warm and without edema. SKIN: No acute rashes. Line is in place without any surrounding erythema. NEUROLOGIC: Grossly nonfocal. Laboratory Data: Reviewed. Pertinent for: CRP 19 WBC 13 Culture data: 12/29/2024 blood culture ngtd x2 12/29 Blood culture growing GPR resembling diphtheroids in 1/2 bottles 10/31 port tip >100k CFU MSSA 11/02- MSSA in blood Imaging: Echo Limited [[id number]] Collected: 12/30/24 1006 Order Status: Completed Updated: 12/30/24 1242 LVEF 60-65% Narrative: [id number]^JORGE^MARIAM^LEISA [facility] [facility] [address] [place] [id number] Name: LEW HERNÁNDEZ : 1995 Study Date: 12/30/2024 10:06 AM Age: 29 yrs Gender: Female Patient [facility]: [facility] Reason For Study: Murmur, Endocarditis Ordering Physician: MARIAM STYLES Performed By: Flaquita Michel RDCS BSA: 1.4 m2 Height: 60 in Weight: 110 lb BP: 98/56 mmHg Procedure Limited Echocardiogram with two-dimensional, color and spectral Doppler. Interpretation Summary Global and regional left ventricular function is normal with an EF of 60-65%. Global right ventricular function is normal. Echodensity in the right atrium attached to the lateral wall just below the tricuspid annulus is again seen. Right atrial thombus cannot be excluded. A catheter is noted in the right atrium. Previously seen echodensity on the posterior tricuspid valve leaflet is not seen today. Mild tricuspid insufficiency is present. The inferior vena cava was normal in size with preserved respiratory variability. No pericardial effusion is present. As previously recommended, a MANUEL for better visualization of the tricuspid valve and the right atrial echodensity would be reasonable. Left Ventricle Global and regional left ventricular function is normal with an EF of 60-65%. Right Ventricle The right ventricle is normal size. Global right ventricular function is normal. Atria There is an echodensity in the right atrium attached to the lateral wall just below the tricuspid annulus with mobile components, thombus cannot be excluded. A catheter is noted in the right atrium. Tricuspid Valve Previously seen echodensity on the posterior tricuspid valve leaflet is not seen today. Mild tricuspid insufficiency is present. The right ventricular systolic pressure is approximated at 26.6 mmHg plus the right atrial pressure. Pulmonary artery systolic pressure is normal. Vessels The inferior vena cava was normal in size with preserved respiratory variability. Pericardium No pericardial effusion is present. MMode/2D Measurements & Calculations TAPSE: 2.9 cm Doppler Measurements & Calculations TR max lj: 258.0 cm/sec TR max P.6 mmHg RV S Lj: 14.7 cm/sec Report approved by: Paula Miramontes MD on 12/30/2024 12:41 PM * Owen Seaman MD - 12/30/2024 7:00 AM CDTAssociated Order(s): CLASSICAL HEMATOLOGY ADULT IP CONSULT Images from the original note were not included. Hematology Consult Service Initial Consult Note: Patient: Lew Hernández : 1995 DOS: 12/30/2024 Date Admitted:12/29/2024 Hospital Day:1 Primary Team: [facility] Other Inpatient Consultants: [place] Primary Metal Model Builder: Dr. Samuel Reason for Consultation: Hematology is consulted on Lew Hernández for evaluation and treatmentof sickle cell pain crisis. 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 # Sickle cell vaso-occlusive pain crisis: - Pain control per pain plan with titration as needed: - Dilaudid IV q2h scheduled - continue q2h per discussion with patient today 12/30 with plan to decrease to q3h tomorrow, 12/31 before likely discharge 9/ PM as Lew notes needing to get home to take care of her daughter by Wednesday when her boyfriend returns to work - Consider topicals (lidocaine patch, diclofenac gel, BenGay, warm packs) if patient finds these helpful) - CBC with diff, reticulocytes, CMP in AM - Please discuss any transfusions with hematology first given risk of alloimmunization and iron overload - Continue MAINTENANCE MECHANIC TECHNICIAN hydrea (1000 mg BID) and folic acid - Discussed importance of getting back into hematology clinic for comprehensive sickle cell care with Lew today and she was in agreement. Has appointment with Dr. Samuel's team scheduled for 01/16/25 that she is aware of # Acute chest syndrome prevention: - Monitor O2 sats and vitals - Encourage incentive spirometry q1h WA - Encourage ambulation, consider PT consult - Monitor for fluid overload and discontinue fluids when taking adequate po - Please page hematology if patient develops fever, acute shortness of breath or other symptoms of acute chest syndrome. # Hx VTE (DVT 2023, bilateral PEs 06/2024, possible R atrial thrombus vs vegetation) - Continue apixaban 5 mg BID # MSSA bacteremia 2/2 CLABSI s/p 6 weeks of cefazolin # Presumed tricuspid valve endocarditis - Agree with repeat BCx and TTE; consider discussion re: MANUEL based on TTE results. Based on last IDnote, they did not feel MANUEL was critical as is already s/p full antibiotic course for presumed endocarditis but cardiology did still recommend outpatient MANUEL which was ordered but has not yet been completed. We will continue to follow the patient. Patient seen and discussed with hematology attending, Dr. Seaman. Eden Garcia MD Hematology/Oncology Fellow PGY4 Medical Decision Making I, Owen Seaman MD, saw and evaluated Lew Hernández: as part of a shared fellow visit. I personally reviewed the laboratory, imaging, and phsyical exam She has a 1/6 murmur at the apex. Ipersonally performed the substantive portion of the medical decision making for this visit - pleasesee the fellow's documentation for full details. [place] management decisions made by me and carried out under my direction to review the echocardiogram in view of endocarditis, review blood cultures pain relief with opiates, needs to follow up with Dr Samuel 's TIFFANY on Jan 16 Owen Seaman MD Dec History of Present Illness: Lew Hernández is a 29 year old woman presenting with diffuse pain that she notes is consistentwith previous sickle cell pain crises. Pain is mostly in her upper extremities and lower extremities bilaterally and in her lower back. Nothing new or different about quality of pain, but notes it ismore intense than it has been recently. No shortness of breath, cough, fevers. Notes that she doesn't have the fatigue or general sense of feeling off or unwell that she had when she was found to have the bacteremia. Was admitted 10/2024 for MSSA bacteremia thought secondary to CLABSI and her ports were removed, did not have a TTE that admission and plan was for a four week course of IV cefazolin as outpatient via PICC, however, had a TTE during subsequent admission 12/01 with echodensity in R atrium and on posterior tricuspid valve leaflet concerning for possible vegetation with mild to moderate tricuspid regurg and a MANUEL was recommended but patient requested discharge due to childcare issues for her daughter. Cefazolin was extended to 6 weeks instead of initial four weeks. MANUEL was recommended during subsequent admission 12/08-12/10 for pain crisis but as she was only able to be here over the weekend againdue to childcare concerns, it was not completed. However, per ID consult note from 12/10, although MANUEL would provide additional diagnostic clarity, the patient is opposed, and I do not believe it is critical at this point since she is already receiving full endocarditis-directed therapy. I discussed with her that after completion of antibiotics, she will need to establish with a provider to manage her PICC while awaiting port replacement. Since 12/08-12/10 admission has required frequent ED visits for pain control but has not been re-admitted. She was last seen in hematology clinic 07/17/2024. 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 Retinopathy, vascular reports right side, sickle retinopathy Sickle cell anemia Past Surgical History: Past Surgical History: Procedure Laterality Date ARTHROPLASTY KNEE Left details unclear IR CHEST PORT PLACEMENT > 5 YRS OF AGE 105/25/2024 IR CHEST PORT PLACEMENT > 5 YRS OF AGE 105/25/2024 REMOVE PORT VASCULAR ACCESS Bilateral 11/10/2024 Procedure: REMOVAL, VASCULAR ACCESS PORT; Surgeon: Salvador Contreras MD; Location: [facility] OR TONSILLECTOMY & ADENOIDECTOMY Bilateral Medications: 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 MECHANIC TECHNICIAN medications: - Apixaban 5 mg BID - Folic acid 1 mg daily - Hydrea 1000 mg BID - Dilaudid 2 mg q6h PRN for severe/breakthrough pain last filled 12/29/24 for one week supply - Benadryl PRN for itching - Zofran PRN - Miralax/senna - Fluoxetine 40 mg daily New inpatient medications: - Scheduled tylenol 1g q8h - Dilaudid 2mg IV scheduled q2h - LR @ 75/hr Allergies: Allergies Allergen Reactions Banana Anaphylaxis, Hives [...] nut Tramadol Hives Cashew Nut Oil Hives ROS: ROS is negative except as stated in the HPI Social History: Social History Tobacco Use Smoking status: Never Smokeless tobacco: Never Substance Use Topics Alcohol use: Not Currently Family History: Family History Problem Relation Age of Onset Sickle Cell Trait Daughter Objective: Vitals: Afebrile, HR 80s, BP 98/56-101/69, RR 14-16, 95-98% on room air Exam: Constitutional: Appears well, no distress. Sleeping upon arrival to room but awakens easily to voice, pleasant and conversational with team HEENT: PERRL, no scleral icterus or injection CV: regular rate and rhythm, +systolic murmur at apex Respiratory: clear to auscultation bilaterally Mus/Skele: no edema Skin: no petechiae, no ecchymosis on exposed skin Neuro: Alert, oriented, conversational, moving all extremities Labs: personally reviewed with relevant trends annotated below Hgb 7.3, baseline mid 7s-mid 8s Retics 0.327 Platelets 316 WBC 14.5, lymphocyte predominant CRP 3.4 Creatinine 0.7 (baseline) Tbili 1.6 AST 34, ALT 15, Alk phos 67 Blood cultures in process Imaging: Most recent CXR 12/23/24: Impression: No acute pulmonary opacities. Visualization of known bilateral pulmonary nodules. Last TTE 12/01/24: Interpretation Summary Global and regional left ventricular function is normal with an EF of 60-65%. Global right ventricular function is normal. Normal atrial size. There is a catheter seen in the right atrial cavity. There is an echodensity in the right atrium attached to the lateral wall just below the tricuspid annulus with mobile components, thombus cannot be excluded. An echodensity is seen on the posterior tricuspid valve leaflet, possible vegetation. There is mild to moderate tricuspid regurgitation. No pericardial effusion is present documented in this encounter ED Notes * Marguerite Burgess MD - 12/29/2024 6:25 PM CDT History Chief Complaint Patient presents [...] of prior sickle cell pain crises. Patient presents w/ recurrent acute on chronic diffuse pain (sparing the chest and no shortness of breath), described as being similar to prior sickle cell pain crises. Has been trying to manage painat home and in ED this week but worse now in severity/unable to manage at home. No fevers or chills. No traumas or falls. No joint swelling, no rashes or skin changes. No other new symptoms or concerns reported at this time. Full ROS completed w/o additional findings. Past Medical History Past Medical History: Diagnosis Date Acute chest syndrome, history of multiple episodes, intubated once Avascular necrosis of left femur, history of Cholelithiasis Continuous opioid dependence Endocarditis, history of 11/2022 culture-negative, had port-a-cath in [facility] Functional asplenia History of stroke related to [...] Location: [facility] OR TONSILLECTOMY & ADENOIDECTOMY Bilateral No current outpatient medications on file. Allergies Allergen Reactions Banana Anaphylaxis, Hives and [...] all other systems negative. Physical Exam BP: 98/56 Pulse: 89 Temp: 98.8 ??F (37.1 ??C) Resp: 16 SpO2: 98 % Physical Exam CONSTITUTIONAL: Awake [...] treatment). The patient's evaluation involved: review of 3+ test result(s) ordered prior to this encounter (see separate area of note for details) ordering and/or review of 3+ test(s) in this encounter (see separate area of note for details) discussion of management or test interpretation with another health professional (see separate areaof note for details) The patient's management necessitated high risk (a parenteral controlled substance), high risk (a decision regarding hospitalization), and further care after sign-out to admitting IM team and overnight EM team (see their note for further management). Assessments & Plan (with Medical Decision Making) [...] nontoxic . Vitals WNL. Otherwise on examination, no obvious acute emergent findings. Ddx includes, but not limited to, flare of chronic pain, vasoocclusive crisis, less likely infection or inflammatory process, no hx for trauma, etc. All sounds very consistent w/ usual presentations. PLAN: - Labs, symptom management (according to Care plan) - Dispo pending ED Course INTERVENTIONS: - IVF, IV Dilaudid (according to ED care plan) RE-EVALUATION: - The patient's symptoms were still present despite meds - Pt otherwise continues to do well here in the ED, no acute issues or apparent concerning changes in vitals or clinical appearance. DISCUSSIONS: - w/ IM: Reviewed patient/presentation, current state of workup/any pending studies. They will admit for further evaluation/management, F/U pending studies as needed, coordinate w/ consulting services as needed. No additional requests/recommendations for workup/management for in the ED at this time. - w/ Patient: I have reviewed the available findings, plan with the patient. She expressed understanding and agreement with this plan. All questions answered to the best of our ability at this time. DISPOSITION/PLANNING: IMPRESSION: - Acute on chronic pain in setting of sickle cell DISPOSITION: - Admit to Med obs for further evaluation/management Marguerite Burgess MD 12/29/2024 [facility] EMERGENCY DEPARTMENT Marguerite Burgess MD 01/03/25 0506 * Lali Haines RN - 12/29/2024 6:02 PM CDT Arrives ambulatory with sickle cell pain. Reports the pain is all over. Denies shortness of breath and chest pain. Triage Assessment (Adult) Row Name 12/29/24 1802 Triage Assessment Airway WDL WDL Respiratory WDL Respiratory WDL WDL Skin Circulation/Temperature WDL Skin Circulation/Temperature WDL WDL Cardiac WDL Cardiac WDL WDL Peripheral/Neurovascular WDL Peripheral Neurovascular WDL WDL Cognitive/Neuro/Behavioral WDL Cognitive/Neuro/Behavioral WDL WDL * Juhi Crump RN - 12/29/2024 6:02 PM CDT Bed: [facility] Expected date: Expected time: Means of arrival: Comments: [address] documented in this encounter Miscellaneous Notes * Plan of Care - Rin Ojeda RN - 12/31/2024 2:03 PM CDT Goal Outcome Evaluation: Plan of Care Reviewed With: patient Overall Patient Progress: no change Outcome Evaluation: Pt leaving AMA today due to childcare concerns. aware. Assessment: Pt A&Ox4 and able to make needs known. Pt is independent. Pt denies SOB, CP, N/V, dizziness. CMS intact and denies numbness & tingling. Pt is continent of bowel and bladder. Pt florentin reg diet and is tolerating well. Pt pain is 6-9/10 and is managed w/ scheduled tylenol and PRN dilaudid. Pt has R PICC but was removed due to concerns of infection at PICC site. Pt call light within reach. Major Shift Changes: Pt planning on leaving AMA Patient discharged to home at 2:02 PM via ambulation. Accompanied by staff. Discharge instructions reviewed with patient, opportunity offered to ask questions. Prescriptions - None ordered for discharge. All belongings sent with patient. 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 Is on apixiban 5mg BID. Previously seen by cardiology for this on 12/09 where they recommended a MANUEL. Patient left AMA due to childcare issues and discussed getting it outpatient. Patient is tentatively planning on leaving this evening (12/31) as well due to childcare issues. Discussed this most recent TTE with cardiology. Same recommendations as before, continue anticoagulation and get MANUEL as able. Previously diagnosed with MSSA bacteremia (November 02). Then ID evaluated her after her TTE from 12/01 demonstrated not only the RA mass but an echodensity on the tricuspid leaflet. She was treated with 6 weeks of cefazolin (ended 12/16). I have reached out to ID again today (12/31) to see her with the question of additional antibiotics given the persistent RA mass. I suspect it is more likely a sterile thrombus but appreciate their thoughts. Discussed reduction of her dilaudid to q3 PRN this morning as noted by the hematology team. She stated they said they would not reduce it until they see her today. This is in the setting of the patient planning on leaving tonight. This is not my preference given her significant cardiac findings and thus she would be leaving against medical advice. Tentatively planning for this given her prior AMA in the same situation. Will discuss with her after multiple specialities see her. I feel comfortable prescribing any new medications for her at discharge despite the AMA as part of a risk reduction approach to her care. Noel Amaro MD Internal Medicine, Hospitalist Service * Plan of Care - Coy Hess RN - 12/31/2024 3:29 AM CDT [id number] Goal Outcome Evaluation: Plan of Care Reviewed With: patient Overall Patient Progress: no change Patient alert and oriented, stable on room air. Up independently in room. Pain managed with prn dilaudid. Right single lumen PICC infusing LR at 75 mL/hr. Denies SOB, chest pain, N/V. Able to make needs known. Call light within reach. Continue with current plan of care. * Plan of Care - Alexia Dumont RN - 12/30/2024 11:22 PM CDT [id number] Goal Outcome Evaluation: Blood pressure 97/53, pulse 80, temperature 98.5 ??F (36.9 ??C), temperature source Oral, resp. rate 18, last menstrual period 12/19/2024, SpO2 97%. End of shift Summary: See flowsheet for VS and detail assessments. Changes this Shift: Pulmonary: Pt is on RA no SOB noted. Output: Bowel and bladder continent. Activity: IND in room and to the bathroom. Pt not oob during this shift. Skin: Dry and clean. Pain: 8/10 Pt reported generalized pain due to sickle cell. Neuro/CMS: A&OX4 mood is neutral. Dressing: None IV/Drains: PICC R brachial vein infusing patent WNL Plan of Care Reviewed With: patient Overall Patient Progress: no changeOverall Patient Progress: no change * Plan of Care - Merissa Coatse RN - 12/30/2024 6:08 PM CDT Goal Outcome Evaluation: Plan of Care Reviewed With: patient VS: BP 104/63 (BP Location: Left arm) Pulse 84 Temp 98.5 ??F (36.9 ??C) (Oral) Resp 16 LMP 12/19/2024 (Approximate) SpO2 96% O2: >92% on RA, no complaints of SOB or chest pain. Output: Voiding w/o pain or difficulty to bathroom. Last BM: 12/30/24 per pt Activity: Independent Skin: Visible skin intact. Pain: Managed with dilaudid PRN q2h. CMS: A&Ox4 Dressing: N/A Diet: Regular, tolerating well. No complaints of nausea or vomiting. LDA: R single lumen PICC infusing LR @75mL/hr. Equipment: Personal belongings Plan: Continue POC. Additional Info: * Plan of Care - Noel Amaro MD - 12/30/2024 2:53 PM CDT Noted TTE showing an echodensity in RA. Stable WBC and low CRP. Blood cultures already collected. Consult ID and cardiology for further evaluation. Noel Amaro MD Internal Medicine, Hospitalist Service --------- Chart review shows cardiology assessed her last month for these findings. Recommended inpatient TEEand patient deferred and left AMA before it could be performed due to need for childcare at home. Will call cardiology to discuss tomorrow. Already anticoagulated on eliquis 5mg BID. Noel Amaro MD Internal Medicine, Hospitalist Service * Medication Scribe - Admission Medication History - Yennifer Edwards - 12/30/2024 6:42 AM CDT Medication Scribe Admission Medication History Admission medication history is complete. The information provided in this note is only as accurateas the sources available at the time of the update. Information Source(s): Patient and CareEverywhere/SureScripts via in-person Pertinent Information: per pt+CE, pt reported taking medications on MAINTENANCE MECHANIC TECHNICIAN medication list as directed. Changes made to MAINTENANCE MECHANIC TECHNICIAN medication list: Added: None Deleted: None Changed: None Allergies reviewed with patient and updates made in EHR: yes Medication History Completed By: Yennifer Edwards 12/30/2024 6:42 AM MAINTENANCE MECHANIC TECHNICIAN Med List Medication Sig Last Dose/Taking apixaban ANTICOAGULANT (ELIQUIS) 5 MG tablet Take 1 tablet (5 mg) by mouth 2 times daily. 12/29/2024 diphenhydrAMINE (BENADRYL) 25 MG tablet Take 1-2 tablets by mouth every 6 hours as needed for itching. 12/29/2024 EPINEPHrine (ANY BX GENERIC EQUIV) 0.3 MG/0.3ML injection 2-pack Inject 0.3 mg into the muscle as needed for anaphylaxis. May repeat one time in 5-15 minutes if response to initial dose is inadequate. Taking As Needed FLUoxetine (PROZAC) 40 MG capsule Take 1 capsule (40 mg) by mouth daily. 12/29/2024 folic acid (FOLVITE) 1 MG tablet Take 1 tablet (1 mg) by mouth daily. 12/29/2024 HYDROmorphone (DILAUDID) 2 MG tablet Take 1 tablet (2 mg) by mouth every 6 hours as needed for severe pain or breakthrough pain. 1 Week supply. No early refills 12/29/2024 hydroxyurea (HYDREA) 500 MG capsule Take 2 capsules (1,000 mg) by mouth 2 times daily 12/29/2024 multivitamin, therapeutic (THERA-VIT) TABS tablet Take 1 tablet by mouth daily. 12/29/2024 naloxone (NARCAN) 4 MG/0.1ML nasal spray Crimora 1 spray (4 mg) into one nostril alternating nostrilsas needed for opioid reversal (for opiate overdose if not breathing and unconscious. have your family member watch video on how to use/read information sheet). every 2-3 minutes until assistance arrives Taking As Needed ondansetron (ZOFRAN ODT) 4 MG ODT tab Take 1 tablet (4 mg) by mouth every 6 hours as needed for nausea or vomiting. 12/29/2024 polyethylene glycol (MIRALAX) 17 GM/Dose powder Take 17 g by mouth 2 times daily as needed for constipation. Unknown senna-docusate (SENOKOT-S/PERICOLACE) 8.6-50 MG tablet Take 2 tablets by mouth 2 times daily as needed for constipation. Unknown * Plan of Care - Coy Hess RN - 12/30/2024 5:08 AM CDT [id number] 8 med surg Admission Note Reason for admission: sickle cell pain crisis Primary team notified of pt arrival. Admitted from: [place] ED Via: stretcher/ambulance Accompanied by: self, EMS Belongings: Placed in closet; valuables sent home with family Admission Required Doc Completed: Yes Mobility Devices Utilized by Patient Provided (i.e. walker, wheelchair, etc.): Yes/No/NA Teaching: Orientation to unit and call light- call light within reach, use of console, meal times, when to call for the RN, and enforced importance of safety. IV Access: Right single lumen PICC Telemetry: No Ht./Wt.: Completed Code Status verified on armband: Yes 2 RN Skin Assessment Completed with: Hawa Chamberlain Suction/Ambu bag/Flowmeter at bedside: Yes/No Pt status: Temp: [98.3 ??F (36.8 ??C)-98.8 ??F (37.1 ??C)] 98.3 ??F (36.8 ??C) Pulse: [82-89] 84 Resp: [14-16] 14 BP: (98-102)/(56-69) 102/60 SpO2: [95 %-98 %] 95 % Goal Outcome Evaluation: Plan of Care Reviewed With: patient Overall Patient Progress: no change Patient alert and oriented, stable on room air. Up independently in room, continent of bowel and bladder. Pain managed with scheduled IV dilaudid q2h. Right single lumen PICC infusing LR at 75 mL.hr.Pt calm and pleasant throughout shift. Able to make needs known. Call light within reach. Continue with current plan of care. documented in this encounter Plan of Treatment Upcoming Encounters Date Type Department Care Team (Late st Contact Info) Description 02/15/2025 10:30 AM CDT Lab [facility] [address] [phone] Olinda Vora APRN RECONCILIATION ACCOUNTANT [address] [place] [id number] 02/15/2025 11:00 AM CDT Oncology Visit [facility] [address] [phone] Olinda Vora APRN RECONCILIATION ACCOUNTANT [address] [place] [id number] 04/09/2025 3:00 PM PORT TRAFFIC MANAGER Lab [address] [phone] Case Samuel MD [address] [place] [address], [address] [place] [address] 04/09/2025 3:30 PM PORT TRAFFIC MANAGER Oncology Visit [facility] [address] [phone] Case Samuel MD [address] [place] [address], [address] [place] [address] documented as of this encounter Goals Goal Patient Goal Type Associated Problems Recent Progress Patient-Stated? Author Pain Management General On track( 025 2:37 PM CDT) Yes Jhui Benson, RN Note: Goal Statement: I will [...] Procedure Name Priority Date/Time Associated Diagnosis Comments BLOOD CULTURE STAT 12/31/2024 1:02 PM CDT BLOOD CULTURE STAT 12/31/2024 1:02 PM CDT CBC WITH PLATELETS (LIMITED OCCURRENCES) Routine 12/31/2024 6:13 AM CDT BASIC METABOLIC PANEL (LIMITED OCCURRENCES) Routine 12/31/2024 6:13 AM CDT CRP INFLAMMATION Routine 12/31/2024 6:13 AM CDT ECHO LIMITED STAT 12/30/2024 10:53 AM CDT RBC AND PLATELET MORPHOLOGY STAT 12/30/2024 5:52 AM CDT CBC WITH PLATELETS AND DIFFERENTIAL STAT 12/30/2024 5:52 AM CDT CBC WITH PLATELETS AND DIFFERENTIAL (LIMITED OCCURRENCES) STAT 12/30/2024 5:52 AM CDT RETICULOCYTE COUNT Routine 12/30/2024 5: 52 AM CDT BLOOD CULTURE STAT 12/29/2024 10:18 PM CDT BLOOD CULTURE ID PANEL, PCR Routine 12/29/2024 10:01 PM CDT BLOOD CULTURE STAT 12/29/2024 10:01 PM CDT MANUAL DIFFERENTIAL STAT 12/29/2024 6 :24 PM CDT LACTIC ACID WHOLE BLOOD WITH 1X REPEAT IN 2 HR WHEN >2 STAT 12/29/2024 6:24 PM CDT RBC AND PLATELET MORPHOLOGY STAT 12/29/2024 6:24 PM CDT CBC WITH PLATELETS AND DIFFERENTIAL STAT 12/29/2024 6:24 PM CDT CBC WITH PLATELETS AND DIFFERENTIAL (LIMITED OCCURRENCES) STAT 12/29/2024 6:24 PM CDT COMPREHENSIVE METABOLIC PANEL (LIMITED OCCURRENCES) STAT 12/29/2024 6:24 PM CDT PROCALCITONIN Add-On 12/29/2024 6:24 PM CDT RETICULOCYTE COUNT STAT 12/29/2024 6: 24 PM CDT INR STAT 12/29/2024 6:24 PM CDT HCG QUALITATIVE STAT 12/29/2024 6:24 PM CDT CRP INFLAMMATION Add-On 12/29/2024 6:24 PM CDT documented in this encounter Results * Blood Culture Peripheral blood (BC) Hand, Right (12/31/2024 1:02 PM CDT) Culture No Growth 01/05/2025 2:47 PM CDT [facility] Peripheral blood (BC) STRUCTURE OF RIGHT HAND / Unknown Venipuncture / Unknown 12/31/2024 1:02 PM CDT 12/31/2024 1:07 PM CDT us Noel Amaro MD LAB - MICRO GENERAL ORDERABLES F inal Result [facility] Inf. Diseases Diag. Lab [address] [facility], [address] [place] [phone], [facility] * Blood Culture Peripheral blood (BC) Hand, Left (12/31/2024 1:02 PM CDT) Culture No Growth 01/05/2025 2:47 PM CDT [facility] Peripheral blood (BC) STRUCTURE OF LEFT HAND / Unknown Venipuncture / Unknown 12/31/2024 1:02 PM CDT 12/31/2024 1:07 PM CDT Narrative [facility] - 01/05/2025 2:47 PM CDT Only an Aerobic Blood Culture Bottle was collected, interpret results with caution. Noel Amaro MD LAB - MICRO GENERAL ORDERABLES F inal Result [facility] Inf. Diseases Diag. Lab [address] [facility], [address] [place] [phone], [facility] * (ABNORMAL) CRP inflammation (12/31/2024 6:13 AM CDT) CRP Inflammation 18.86(H) <5.00 mg/L 12/31/2024 6:50 AM CDT [facility] Blood VENOUS LINE / Unknown Venipuncture / Unknown 12/31/2024 6:13 AM CDT 12/31/2024 6:26 AM CDT Noel Amaro MD LAB - BLOOD ORDERABLES Final Res ult [facility] Lab [address] [facility], [address] [place] [phone], [facility] * (ABNORMAL) Basic Metabolic Panel (Limited Occurrences) (12/31/2024 6:13 AM CDT) Sodium 135 135 - 145 mmol/L 12/31/2024 6:50 AM CDT [facility] Potassium 4.3 3.4 - 5.3 mmol/L 12/31/2024 6:50 AM CDT [facility] Chloride 103 98 - 107 mmol/L 12/31/2024 6:50 AM CDT [facility] Carbon Dioxide (CO2) 24 22 - 29 mmol/L 12/31/2024 6:50 AM CDT [facility] Anion Gap 8 7 - 15 mmol/L 12/31/2024 6:50 AM CDT [facility] Urea Nitrogen 7.9 6.0 - 20.0 mg/dL 12/31/2024 6:50 AM CDT [facility] Creatinine 0.54 0.51 - 0.95 mg/dL 12/31/2024 6:50 AM CDT [facility] GFR Estimate >90 >60 mL/min/1.7 3m2 12/31/2024 6:50 AM CDT [facility] Comment:eGFR calculated us2020 CKD-EPI equation. Calcium 8.6(L) 8.8 - 10.4 mg/dL 12/31/2024 6:50 AM CDT [facility] Glucose 99 70 - 99 mg/dL 12/31/2024 6:50 AM CDT [facility] Blood VENOUS LINE / Unknown Venipuncture / Unknown 12/31/2024 6:13 AM CDT 12/31/2024 6:26 AM CDT us Noel Amaro MD LAB - BLOOD ORDERABLES Final Res ult [facility] Lab [address] [facility], [address] [place] [phone] * (ABNORMAL) CBC with Platelets (Limited Occurrences) (12/31/2024 6:13 AM CDT) WBC Count 13.19(H) 4.00 - 11.00 10e3/uL 12/31/2024 6:28 AM CDT [facility] RBC Count 2.16(L) 3.80 - 5.20 10e6/uL 12/31/2024 6:28 AM CDT [facility] Hemoglobin 7.4(L) 11.7 - 15.7 g/dL 12/31/2024 6:28 AM CDT [facility] Hematocrit 20.3(L) 35.0 - 47.0 % 12/31/2024 6:28 AM CDT [facility] MCV 94.0 78.0 - 100.0 fL 12/31/2024 6:28 AM CDT UR LAB[facility]ATORY MCH 34.3(H) 26.5 - 33.0 pg 12/31/2024 6:28 AM CDT UR LABORATORY MCHC 36.5 31.5 - 36.5 g/dL 12/31/2024 6:28 AM CDT UR LABORATORY RDW 19.8(H) 10.0 - 15.0 % 12/31/2024 6:28 AM CDT UR LABORATORY Platelet Count 340 150 - 450 10e3/uL 12/31/2024 6:28 AM CDT UR LABORATORY Blood VENOUS LINE / Unknown Venipuncture / Unknown 12/31/2024 6:13 AM CDT 12/31/2024 6:26 AM CDT us Noel Amaro MD LAB - BLOOD ORDERABLES Final Res ult UR LABORATORY [facility] Lab [address] [facility], [address] [place] [phone] * ECHO LIMITED (12/30/2024 10:53 AM CDT) LVEF 60-65% CARDIOLOGY RESULTS Anatomical Region Laterality Modality Echocardiography 12/30/2024 10:0 6 AM CDT Narrative 12/30/2024 12:41 PM CDT [id number] ^JORGE^MARIAM^LEISA [facility] [facility] Laboratory [address] [place] [address] Name: LEW HERNÁNDEZ : 1995 Study Date: 12/30/2024 10:06 AM Age: 29 yrs Gender: Female Patient Location: [facility] Reason For Study: Murmur, Endocarditis Ordering Physician: MARIAM STYLES Performed By: Flaquita Michel RDCS BSA: 1.4 m2 Height: 60 in Weight: 110 lb BP: 98/56 mmHg Procedure Limited Echocardiogram with two-dimensional, color and spectral Doppler. Interpretation Summary Global and regional left ventricular function is normal with an EF of 60-65%. Global right ventricular function is normal. Echodensity in the right atrium attached to the lateral wall just below the tricuspid annulus is again seen. Right atrial thombus cannot be excluded. A catheter is noted in the right atrium. Previously seen echodensity on the posterior tricuspid valve leaflet is not seen today. Mild tricuspid insufficiency is present. The inferior vena cava was normal in size with preserved respiratory variability. No pericardial effusion is present. As previously recommended, a MANUEL for better visualization of the tricuspid valve and the right atrial echodensity would be reasonable. Left Ventricle Global and regional left ventricular function is normal with an EF of 60-65%. Right Ventricle The right ventricle is normal size. Global right ventricular function is normal. Atria There is an echodensity in the right atrium attached to the lateral wall just below the tricuspid annulus with mobile components, thombus cannot be excluded. A catheter is noted in the right atrium. Tricuspid Valve Previously seen echodensity on the posterior tricuspid valve leaflet is not seen today. Mild tricuspid insufficiency is present. The right ventricular systolic pressure is approximated at 26.6 mmHg plus the right atrial pressure. Pulmonary artery systolic pressure is normal. Vessels The inferior vena cava was normal in size with preserved respiratory variability. Pericardium No pericardial effusion is present. MMode/2D Measurements & Calculations TAPSE: 2.9 cm Doppler Measurements & Calculations TR max lj: 258.0 cm/sec TR max P.6 mmHg RV S Lj: 14.7 cm/sec Report approved by: Paula Miramontes MD on 12/30/2024 12:41 PM Procedure Note Paula Miramontes MD - 12/30/2024 [id number]^JORGE^MARIAM^LEISA [facility] [facility] Laboratory [address] [place] [id number] Name: LEW HERNÁNDEZ : 1995 Study Date: 12/30/2024 10:06 AM Age: 29 yrs Gender: Female Patient Location: [facility] Reason For Study: Murmur, Endocarditis Ordering Physician: MARIAM STYLES Performed By: Flaquita Michel RDCS BSA: 1.4 m2 Height: 60 in Weight: 110 lb BP: 98/56 mmHg Procedure Limited Echocardiogram with two-dimensional, color and spectral Doppler. Interpretation Summary Global and regional left ventricular function is normal with an EF of60-65%. Global right ventricular function is normal. Echodensity in the right atrium attached to the lateral wall just belowthe tricuspid annulus is again seen. Right atrial thombus cannot be excluded.A catheter is noted in the right atrium. Previously seen echodensity on the posterior tricuspid valve leaflet isnot seen today. Mild tricuspid insufficiency is present. The inferior vena cava was normal in size with preserved respiratory variability. No pericardial effusion is present. As previously recommended, a MANUEL for better visualization of thetricuspid valve and the right atrial echodensity would be reasonable. Left Ventricle Global and regional left ventricular function is normal with an EF of60-65%. Right Ventricle The right ventricle is normal size. Global right ventricular function is normal. Atria There is an echodensity in the right atrium attached to the lateral walljust below the tricuspid annulus with mobile components, thombus cannot be excluded. A catheter is noted in the right atrium. Tricuspid Valve Previously seen echodensity on the posterior tricuspid valve leaflet isnot seen today. Mild tricuspid insufficiency is present. The rightventricular systolic pressure is approximated at 26.6 mmHg plus the right atrialpressure. Pulmonary artery systolic pressure is normal. Vessels The inferior vena cava was normal in size with preserved respiratory variability. Pericardium No pericardial effusion is present. MMode/2D Measurements & Calculations TAPSE: 2.9 cm Doppler Measurements & Calculations TR max lj: 258.0 cm/sec TR max P.6 mmHg RV S Lj: 14.7 cm/sec Report approved by: Paula Miramontes MD on 12/30/2024 12:41 PM Mariam Styles APRN RECONCILIATION ACCOUNTANT CV ECHO ORDERABL ES Edited Result - Final * (ABNORMAL) RBC and Platelet Morphology (12/30/2024 5:52 AM CDT) RBC Morphology Confirmed RBC Indices 12/30/2024 6:43 AM CDT UR LABORATORY Platelet Assessment Automated Count Confirmed. Platelet morphology is normal. Automated Count Confirmed. Platelet morphology is normal. 12/30/2024 6:43 AM CDT UR LABORATORY Elliptocytes Slight(A) None Seen 12/30/2024 6:43 AM CDT UR LABORATORY Polychromasia Slight(A) None Seen 12/30/2024 6:43 AM CDT UR LABORATORY Sickle Cells Slight(A) None Seen 12/30/2024 6:43 AM CDT UR LABORATORY Target Cells Moderate(A) None Seen 12/30/2024 6:43 AM CDT UR LABORATORY Blood VENOUS LINE / Unknown Venipuncture / Unknown 12/30/2024 5:52 AM CDT 12/30/2024 6:04 AM CDT us Mariam Styles APRN RECONCILIATION ACCOUNTANT LAB - BLOOD ORDE RABLES Final Result UR LABORATORY [facility] Lab [address] [facility], [address] [place] [phone] * (ABNORMAL) CBC with platelets and differential (12/30/2024 5:52 AM CDT) WBC Count 14.47(H) 4.00 - 11.00 10e3/uL 12/30/2024 6:43 AM CDT UR LABORATORY RBC Count 2.09(L) 3.80 - 5.20 10e6/uL 12/30/2024 6:43 AM CDT UR LABORATORY Hemoglobin 7.3(L) 11.7 - 15.7 g/dL 12/30/2024 6:43 AM CDT UR LABORATORY Hematocrit 19.8(L) 35.0 - 47.0 % 12/30/2024 6:43 AM CDT UR LABORATORY MCV 94.7 78.0 - 100.0 fL 12/30/2024 6:43 AM CDT UR LABORATORY MCH 34.9(H) 26.5 - 33.0 pg 12/30/2024 6:43 AM CDT UR LABORATORY MCHC 36.9(H) 31.5 - 36.5 g/dL 12/30/2024 6:43 AM CDT UR LABORATORY RDW 20.0(H) 10.0 - 15.0 % 12/30/2024 6:43 AM CDT UR LABORATORY Platelet Count 316 150 - 450 10e3/uL 12/30/2024 6:43 AM CDT UR LABORATORY % Neutrophils 36.6 % 12/30/2024 6:43 AM CDT UR LABORATORY % Lymphocytes 43.7 % 12/30/2024 6:43 AM CDT UR LABORATORY % Monocytes 15.4 % 12/30/2024 6:43 AM CDT UR LABORATORY % Eosinophils 2.6 % 12/30/2024 6:43 AM CDT UR LABORATORY % Basophils 0.8 % 12/30/2024 6:43 AM CDT UR LABORATORY % Immature Granulocytes 0.9 % 12/30/2024 6:43 AM CDT UR LABORATORY NRBCs per 100 WBC 1.1(H) <1.0 /100 12/30/2024 6:43 AM CDT UR LABORATORY Absolute Neutrophils 5.29 1.60 - 8.30 10e3/uL 12/30/2024 6:43 AM CDT UR LABORATORY Absolute Lymphocytes 6.33(H) 0.80 - 5.30 10e3/uL 12/30/2024 6:43 AM CDT UR LABORATORY Absolute Monocytes 2.23(H) 0.00 - 1.30 10e3/uL 12/30/2024 6:43 AM CDT UR LABORATORY Absolute Eosinophils 0.37 0.00 - 0.70 10e3/uL 12/30/2024 6:43 AM CDT UR LABORATORY Absolute Basophils 0.12 0.00 - 0.20 10e3/uL 12/30/2024 6:43 AM CDT UR LABORATORY Absolute Immature Granulocytes 0.13 <=0.40 10e3/uL 12/30/2024 6:43 AM CDT UR LABORATORY Absolute NRBCs 0.16 10e3/uL 12/30/2024 6:43 AM CDT UR LABORATORY Blood VENOUS LINE / Unknown Venipuncture / Unknown 12/30/2024 5:52 AM CDT 12/30/2024 6:04 AM CDT us Mariam Styles APRN, CNP LAB - BLOOD ORDE RABEDWARD Final Result UR LABORATORY [facility] Lab [address] [place] [address], [address] * (ABNORMAL) Reticulocyte count (12/30/2024 5:52 AM CDT) % Reticulocyte 15.64(H) 0.50 - 2.00 % 12/30/2024 6:07 AM CDT UR LABORATORY Absolute Reticulocyte 0.3269(H) 0.0250 - 0.0950 10e6/uL 12/30/2024 6:07 AM CDT UR LABORATORY Blood VENOUS LINE / Unknown Venipuncture / Unknown 12/30/2024 5:52 AM CDT 12/30/2024 6:04 AM CDT us Mariam Styles APRN, CNP LAB - BLOOD ORDE SHARMAINE Final Result UR LABORATORY [facility] [address] [place] [address], [address] * Blood Culture Peripheral blood (BC) Hand, Left (12/29/2024 10:18 PM CDT) Culture No Growth 01/03/2025 10:46 PM CDT [facility] Peripheral blood (BC) STRUCTURE OF LEFT HAND / Unknown Venipuncture / Unknown 12/29/2024 10:18 PM CDT 12/29/2024 10:25 PM CDT Gerard Alejandro PA-C LAB - MICRO GENERAL ORDERAB LES Final Result [facility] Inf. Diseases Diag. Lab [address] [facility], [address] [place] [phone] * Blood Culture ID Panel, PCR (12/29/2024 10:01 PM CDT) Enterococcus faecalis Not Detected Not Detected 12/31/2024 11:56 AM CDT [facility] Enterococcus faecium Not Detected Not Detected 12/31/2024 11:56 AM CDT [facility] Listeria monocytogenes Not Detected Not Detected 12/31/2024 11:56 AM CDT [facility] Staphylococcus species Not Detected Not Detected 12/31/2024 11:56 AM CDT [facility] Staphylococcus aureus Not Detected Not Detected 12/31/2024 11:56 AM CDT [facility] Staphylococcus epidermidis Not Detected Not Detected 12/31/2024 11:56 AM CDT [facility] Staphylococcus lugdunensis Not Detected Not Detected 12/31/2024 11:56 AM CDT [facility] Streptococcus species Not Detected Not Detected 12/31/2024 11:56 AM CDT [facility] Streptococcus agalactiae Not Detected Not Detected 12/31/2024 11:56 AM CDT [facility] Streptococcus pneumoniae Not Detected Not Detected 12/31/2024 11:56 AM CDT [facility] Streptococcus pyogenes Not Detected Not Detected 12/31/2024 11:56 AM CDT [facility] A. baumannii complex Not Detected Not Detected 12/31/2024 11:56 AM CDT [facility] Bacteroides fragilis Not Detected Not Detected 12/31/2024 11:56 AM CDT [facility] Enterobacterales Not Detected Not Detected 12/31/2024 11:56 AM CDT [facility] Enterobacter cloacae complex Not Detected Not Detected 12/31/2024 11:56 AM CDT [facility] Escherichia coli Not Detected Not Detected 12/31/2024 11:56 AM CDT [facility] Klebsiella aerogenes Not Detected Not Detected 12/31/2024 11:56 AM CDT [facility] Klebsiella oxytoca Not Detected Not Detected 12/31/2024 11:56 AM CDT [facility] Klebsiella pneumoniae group Not Detected Not Detected 12/31/2024 11:56 AM CDT [facility] Proteus species Not Detected Not Detected 12/31/2024 11:56 AM CDT [facility] Salmonella species Not Detected Not Detected 12/31/2024 11:56 AM CDT [facility] Serratia marcescens Not Detected Not Detected 12/31/2024 11:56 AM CDT [facility] Haemophilus influenzae Not Detected Not Detected 12/31/2024 11:56 AM CDT [facility] Neisseria meningitidis Not Detected Not Detected 12/31/2024 11:56 AM CDT [facility] Pseudomonas aeruginosa Not Detected Not Detected 12/31/2024 11:56 AM CDT [facility] Stenotrophomonas maltophilia Not Detected Not Detected 12/31/2024 11:56 AM CDT [facility] Gina albicans Not Detected Not Detected 12/31/2024 11:56 AM CDT [facility] Gina auris Not Detected Not Detected 12/31/2024 11:56 AM CDT [facility] Gina glabrata Not Detected Not Detected 12/31/2024 11:56 AM CDT [facility] Gina krusei Not Detected Not Detected 12/31/2024 11:56 AM CDT [facility] Gina parapsilosis Not Detected Not Detected 12/31/2024 11:56 AM CDT [facility] Gina tropicalis Not Detected Not Detected 12/31/2024 11:56 AM CDT [facility] Cryptococcus neoformans/gattii Not Detected Not Detected 12/31/2024 11:56 AM CDT [facility] Line (BC) ARTERIAL LINE / Unknown VAD(CVC, PICC) / Unknown 12/29/2024 10:01 PM CDT 12/29/2024 10:06 PM CDT Narrative [facility] - 12/31/2024 11:56 AM CDT Assay performed using the FDA-cleared BioFire Blood Culture Identification 2 (BCID2) Panel, a multiplexed nucleic acid test for the detection and identification of multiple bacterial and yeast nucleic acids and select genetic determinants associated with antimicrobial resistance. A negative BCID2 result does not exclude the possibility of bloodstream infection. Positive results do not rule out co-infection with organisms not included in the BioFire BCID2 Panel. Results are intended to aid in the diagnosis of illness and are meant to be used in conjunction with other clinical findings. This test has been verified and performed by the Infectious Diseases Diagnostic Laboratory at [facility]. This laboratory is certified under the Clinical Laboratory Improvement Amendments of 1988 (CLIA-88) as qualified to perform high complexity clinical laboratory testing. Mariam Styles APRN, CNP LAB - MICRO GENE RAL ORDERABLES Final Result [facility] Inf. Diseases Diag. Lab [address] [facility], [address] [place] [phone] * (ABNORMAL) Blood Culture Line (BC) Line, arterial (12/29/2024 10:01 PM CDT) [facility] Signature Culture Positive on the 2nd day of incubation(A) 01/02/2025 12:53 PM CDT [facility] Culture Gram positive bacilli, resembling diphtheroids( AA) 01/02/2025 12:53 PM CDT [facility] Comment: 1 of 2 bottles No further identification The recovery of this organism from a single blood culture bottle most likely represents contamination. If susceptibility testing is needed, please refer to the antibiogram or contact IDDL. If contamination is suspected, it is important to repeat two sets of blood cultures from two different sites. Line (BC) ARTERIAL LINE / Unknown VAD(CVC, PICC) / Unknown 12/29/2024 10:01 PM CDT 12/29/2024 10:06 PM CDT Mariam Styles APRN, CNP LAB - MICRO GENE RAL ORDERABLES Final Result [facility] Inf. Diseases Diag. Lab [address] [facility], [address] [place] [phone] * Procalcitonin (12/29/2024 6:24 PM CDT) Procalcitonin 0.06 <0.50 ng/mL 12/30/2024 9:34 AM CDT [facility] Comment: Interpretation and Recommendations <0.5 [...] See Procalcitonin Guidance document for more details. [email or web address] Factors that may affect PCT levels (not [...] BLOOD SPECIMEN / Unknown Venipuncture / Unknown 12/29/2024 6:24 PM CDT 12/29/2024 6:33 PM CDT us Eden Garcia MD LAB - BLOOD ORDERABLES Final Result Performing Organization Address [facility]/State/ZIP Co de Phone Number [facility] [place] [facility] [address] [facility], [address] [place] [phone] * CRP inflammation (12/29/2024 6:24 PM CDT) [facility] CRP Inflammation 3.41 <5.00 mg/L 12/30/19 10:00 PM CDT [facility] Blood BLOOD SPECIMEN / Unknown Venipuncture / Unknown 12/29/2024 6:24 PM CDT 12/29/2024 6:33 PM CDT us Mariam Styles APRN RECONCILIATION ACCOUNTANT LAB - BLOOD AJAY SCHMID Final Result [facility] [place] [facility] [address] [facility], [address] [place] [phone] * (ABNORMAL) Manual Differential (12/29/2024 6:24 PM CDT) [facility] % Neutrophils 50.0 % JARET 12/29/2024 7:53 PM CDT [facility] % Lymphocytes 36.0 % JARET 12/29/2024 7:53 PM CDT [facility] % Monocytes 8.0 % JARET 12/29/2024 7:53 PM CDT [facility] % Eosinophils 4.0 % JARET 12/29/2024 7:53 PM CDT [facility] % Basophils 2.0 % JARET 12/29/2024 7:53 PM CDT [facility] Absolute Neutrophils 7.30 1.60 - 8.30 10e3/uL JARET 12/29/2024 7:53 PM CDT [facility] Absolute Lymphocytes 5.26 0.80 - 5.30 10e3/uL JARET 12/29/2024 7:53 PM CDT [facility] Absolute Monocytes 1.17 0.00 - 1.30 10e3/uL JARET 12/29/2024 7:53 PM CDT [facility] Absolute Eosinophils 0.58 0.00 - 0.70 10e3/uL JARET 12/29/2024 7:53 PM CDT [facility] Absolute Basophils 0.29(H) 0.00 - 0.20 10e3/uL JARET 12/29/2024 7:53 PM CDT [facility] NRBCs per 100 WBC 5 % JARET 12/29/2024 7:53 PM CDT [facility] Absolute NRBCs 0.7 10e3/uL JARET 12/29/2024 7:53 PM CDT [facility] Blood BLOOD SPECIMEN / Unknown Venipuncture / Unknown 12/29/2024 6:24 PM CDT 12/29/2024 6:33 PM CDT Marguerite Burgess MD LAB - BLOOD ORDERABLES Final Result [facility] [place] [facility] [address] [facility], [address] * (ABNORMAL) RBC and Platelet Morphology (12/29/2024 6:24 PM CDT) Pathologist [facility] RBC Morphology Confirmed RBC Indices 12/29/2024 7:41 PM CDT [facility] Platelet Assessment Automated Count Confirmed. Platelet morphology is normal. Automated Count Confirmed. Platelet morphology is normal. 12/29/2024 7:41 PM CDT [facility] Polychromasia Slight(A) None Seen 12/29/2024 7:41 PM CDT [facility] Sickle Cells Moderate(A) None Seen 12/29/2024 7:41 PM CDT [facility] Target Cells Slight(A) None Seen 12/29/2024 7:41 PM CDT [facility] Blood BLOOD SPECIMEN / Unknown Venipuncture / Unknown 12/29/2024 6:24 PM CDT 12/29/2024 6:33 PM CDT us Marguerite Burgess MD LAB - BLOOD ORDERABLES Final Result [facility] [place] [facility] [address] [facility], [address] * (ABNORMAL) CBC with platelets and differential (12/29/2024 6:24 PM CDT) WBC Count 14.61(H) 4.00 - 11.00 10e3/uL 12/29/2024 7:52 PM CDT [facility] RBC Count 2.20(L) 3.80 - 5.20 10e6/uL 12/29/2024 7:52 PM CDT [facility] Hemoglobin 7.6(L) 11.7 - 15.7 g/dL 12/29/2024 7:52 PM CDT [facility] Hematocrit 21.5(L) 35.0 - 47.0 % 12/29/2024 7:52 PM CDT [facility] MCV 97.7 78.0 - 100.0 fL 12/29/2024 7:52 PM CDT [facility] MCH 34.5(H) 26.5 - 33.0 pg 12/29/2024 7:52 PM CDT [facility] MCHC 35.3 31.5 - 36.5 g/dL 12/29/2024 7:52 PM CDT [facility] RDW 20.1(H) 10.0 - 15.0 % 12/29/2024 7:52 PM CDT [facility] Platelet Count 340 150 - 450 10e3/uL 12/29/2024 7:52 PM CDT [facility] Blood BLOOD SPECIMEN / Unknown Venipuncture / Unknown 12/29/2024 6:24 PM CDT 12/29/2024 6:33 PM CDT Marguerite Burgess MD LAB - BLOOD ORDERABLES Final Result [facility] [place] [facility] [address] [facility], [address] [phone] * HCG qualitative Blood (12/29/2024 6:24 PM CDT) Pathologist [facility] hCG Serum Qualitative Negative Negative JARET 12/29/2024 7:02 PM CDT [facility] Comment:This test is for scr eening purposes. Results should be interpreted along with the clinical picture. Confirmation testing is available if warranted by ordering [id number], HCG Quantitative . Blood BLOOD SPECIMEN / Unknown Venipuncture / Unknown 12/29/2024 6:24 PM CDT 12/29/2024 6:32 PM CDT Marguerite Burgess MD LAB - BLOOD ORDERABLES Final Result [facility] [place] [facility] [address] [facility], [address] * Lactic acid whole blood with 1x repeat in 2 hr when >2 (12/29/2024 6:24 PM CDT) Lactic Acid, Initial 1.0 0.7 - 2.0 mmol/L 12/29/2024 6:34 PM CDT [facility] Blood BLOOD SPECIMEN / Unknown Venipuncture / Unknown 12/29/2024 6:24 PM CDT 12/29/2024 6:32 PM CDT us Marguerite Burgess MD LAB - BLOOD ORDERABLES Final Result Performing Organization Address City/[facility]/ZIP Co de Phone Number [facility] Core Lab [address] [facility], [address] * (ABNORMAL) Comprehensive Metabolic Panel (Limited Occurrences) (12/29/2024 6:24 PM CDT) Sodium 138 135 - 145 mmol/L 12/29/2024 7:05 PM CDT [facility] Potassium 4.1 3.4 - 5.3 mmol/L 12/29/2024 7:05 PM CDT [facility] Carbon Dioxide (CO2) 22 22 - 29 mmol/L 12/29/2024 7:05 PM CDT [facility] Anion Gap 10 7 - 15 mmol/L 12/29/2024 7:05 PM CDT [facility] Urea Nitrogen 10.9 6.0 - 20.0 mg/dL 12/29/2024 7:05 PM CDT [facility] Creatinine 0.70 0.51 - 0.95 mg/dL 12/29/2024 7:05 PM CDT [facility] GFR Estimate >90 >60 mL/min/1.7 3m2 12/29/2024 7:05 PM CDT [facility] Comment:eGFR calculated usin 2020 CKD-EPI equation. Calcium 8.9 8.8 - 10.4 mg/dL 12/29/2024 7:05 PM CDT [facility] Chloride 106 98 - 107 mmol/L 12/29/2024 7:05 PM CDT [facility] Glucose 99 70 - 99 mg/dL 12/29/2024 7:05 PM CDT [facility] Alkaline Phosphatase 67 40 - 150 U/L 12/29/2024 7:05 PM CDT [facility] AST 34 0 - 45 U/L 12/29/2024 7:05 PM CDT [facility] ALT 15 0 - 50 U/L 12/29/2024 7:05 PM CDT [facility] Protein Total 7.5 6.4 - 8.3 g/dL 12/29/2024 7:05 PM CDT [facility] Albumin 4.2 3.5 - 5.2 g/dL 12/29/2024 7:05 PM CDT [facility] Bilirubin Total 1.6(H) <=1.2 mg/dL 12/29/2024 7:05 PM CDT [facility] Blood BLOOD SPECIMEN / Unknown Venipuncture / Unknown 12/29/2024 6:24 PM CDT 12/29/2024 6:33 PM CDT us Marguerite Burgess MD LAB - BLOOD ORDERABLES Final Result Performing Organization Address City/State/[facility] Co de Phone Number [facility] [place] [facility] [address] [facility], [address] [phone] * (ABNORMAL) INR (12/29/2024 6:24 PM CDT) INR 1.37(H) 0.85 - 1.15 12/29/2024 7:03 PM CDT [facility] PT 16.8(H) 11.8 - 14.8 Seconds 12/29/2024 7:03 PM CDT [facility] Blood BLOOD SPECIMEN / Unknown Venipuncture / Unknown 12/29/2024 6:24 PM CDT 12/29/2024 6:33 PM CDT us Marguerite Burgess MD LAB - BLOOD ORDERABLES Final Result U [facility] [place] [facility] [address] [facility], [address] [phone] * (ABNORMAL) Reticulocyte count (12/29/2024 6:24 PM CDT) Pathologist [facility] % Reticulocyte 14.71(H) 0.50 - 2.00 % 12/29/2024 6:40 PM CDT [facility] Absolute Reticulocyte 0.3236(H) 0.0250 - 0.0950 10e6/uL 12/29/2024 6:40 PM CDT [facility] Blood BLOOD SPECIMEN / Unknown Venipuncture / Unknown 12/29/2024 6:24 PM CDT 12/29/2024 6:33 PM CDT us Marguerite Burgess MD LAB - BLOOD ORDERABLES Final Result Performing Organization Address [facility] de Phone Number LABORATORY [facility] [place] [facility] [address] [facility], [address] [phone] documented in this encounter Visit Diagnoses Diagnosis 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 $Given 12/31/2024 12:36 PM CDT 975 mg $Given 12/31/2024 6:20 AM CDT 975 mg $Given 12/30/2024 8:21 PM CDT 975 mg alum & mag hydroxide-simethicone (MAALOX) suspension 30 mL 30 mL, Oral, EVERY 6 HOURS PRN, indigestion, Starting on Wed12/29/24 at 2046, Shake well. apixaban ANTICOAGULANT (ELIQUIS) tablet 5 mg 5 mg, Oral, 2 TIMES DAILY, First dose on Wed12/29/24 at 2130, Indications: DVT-PE ProphylaxisIndications:DVT-PE Prophylaxis $Given 12/31/2024 8:28 AM CDT 5 mg $Given 12/30/2024 8:21 PM CDT 5 mg $Given 12/30/2024 7:44 AM CDT 5 mg calcium carbonate (TUMS) chewable tablet 1,000 mg 1,000 mg, Oral, 4 TIMES DAILY PRN, heartburn, Starting on Wed12/29/24 at 2224 diphenhydrAMINE (BENADRYL) capsule 25-50 mg 25-50 mg, Oral, EVERY 6 HOURS PRN, itching, sleep, anxiety, Starting on Wed12/29/24 at 2123 $Given 12/30/2024 2:29 PM CDT 25 mg $Given 12/29/2024 9:57 PM CDT 25 mg FLUoxetine (PROzac) capsule 40 mg 40 mg, Oral, DAILY, First dose on Wed12/30/24 at 0800 $Given 12/31/2024 8:28 AM CDT 40 mg $Given 12/30/2024 7:44 AM CDT 40 mg folic acid (FOLVITE) tablet 1 mg 1 mg, Oral, DAILY, First dose on Wed12/30/24 at 0800 $Given 12/31/2024 8:28 AM CDT 1 mg $Given 12/30/2024 7:44 AM CDT 1 mg hydromorphone (DILAUDID) injection 2 mg 2 mg, Intravenous, EVERY 1 HOUR PRN, severe pain, Starting on Wed12/29/24 at 1805, For 3 doses $Given 12/29/2024 9:06 PM CDT 2 mg $Given 12/29/2024 7:45 PM CDT 2 mg $Given 12/29/2024 6:27 PM CDT 2 mg hydromorphone (DILAUDID) injection 2 mg 2 mg, Intravenous, EVERY 2 HOURS, First dose (after last modification) on Wed12/29/24 at 2230 $Given 12/30/2024 7:34 AM CDT 2 mg $Given 12/30/2024 5:27 AM CDT 2 mg $Given 12/30/2024 3:29 AM CDT 2 mg hydromorphone (DILAUDID) injection 2 mg 2 mg, Intravenous, EVERY 2 HOURS PRN, severe pain, Starting on 12/30/24 at 0848 $Given 12/31/2024 12:36 PM CDT 2 mg $Given 12/31/2024 10:31 AM CDT 2 mg $Given 12/31/2024 8:20 AM CDT 2 mg hydroxyurea (HYDREA) capsule 1,000 mg 1,000 mg, Oral, 2 TIMES DAILY, First dose on Wed12/29/24 at 2200, Indications: sickle cell disease, Do not crush May require hepatic and/or renal dose or frequency adjustments. See reference link for guidelines.Indications:sickle cell disease $Given 12/31/2024 8:27 A M CDT 1,000 mg $Given 12/30/2024 8:16 PM CDT 1,000 mg $Given 12/30/2024 7:43 AM CDT 1,000 mg lactated ringers BOLUS 1,000 mL Intravenous, 1,000 mL, ONCE, at 500 mL/hr, Administer over 2 Hours, On Wed12/29/24 at 1810, For 1 dose Rate/Dose Verify 12/29/2024 8:26 PM CDT 500 mL/hr $New Bag 12/29/2024 6:20 PM CDT 1,000 mLs 500 mL/hr lactated ringers infusion at 75 mL/hr, Intravenous, CONTINUOUS, Starting on Wed12/29/24 at 2050, Until 12/31/24 at 1636 $New Bag 12/31/2024 4:11 AM CDT 75 mL/hr $New Bag 12/30/2024 2:02 PM CDT 75 mL/hr Rate/Dose Verify 12/30/2024 7:41 AM CDT 75 mL/h r melatonin tablet 5 mg 5 mg, Oral, AT BEDTIME PRN, sleep, Starting on Wed12/29/24 at 2225, Do not give unless at least 6 hours of uninterrupted sleep is expected. If patient has multiple medications ordered PRN sleep/insomnia, offer melatonin first. $Given 12/30/2024 8:21 PM CDT 5 mg multivitamin, therapeutic (THERA-VIT) tablet 1 tablet 1 tablet, Oral, DAILY, First dose on 12/30/24 at 0800 $Given 12/31/2024 8:28 AM CDT 1 tablet $Given 12/30/2024 7:43 AM CDT 1 tablet naloxone (NARCAN) injection 0.2 mg 0.2 mg, Intravenous, EVERY 2 MIN PRN, opioid reversal, Starting on 12/30/24 at 0856, Administer intravenous route when available and notify [...] parameters have not improved after 4 naloxone doses. naloxone (NARCAN) injection 0.2 mg 0.2 mg, Intramuscular, EVERY 2 MIN PRN, opioid reversal, Starting on 12/30/24 at 0856, Administer intramuscular if an intravenous route is [...] parameters have not improved after 4 naloxone doses. naloxone (NARCAN) injection 0.4 mg 0.4 mg, Intravenous, EVERY 2 MIN PRN, opioid reversal, Starting on 12/30/24 at 0856, Administer intravenous route when available and notify [...] parameters have not improved after 4 naloxone doses. naloxone (NARCAN) injection 0.4 mg 0.4 mg, Intramuscular, EVERY 2 MIN PRN, opioid reversal, Starting on 12/30/24 at 0856, Administer intramuscular if an intravenous route is [...] parameters have not improved after 4 naloxone doses. Patient is already receiving anticoagulation with heparin, enoxaparin (LOVENOX), warfarin (COUMADIN) or other anticoagulant medication CONTINUOUS PRN, Starting on Wed12/29/24 at 2225, Until 12/31/24 at 1636 polyethylene glycol (MIRALAX) Packet 17 g 17 g, Oral, DAILY, First dose on Wed12/30/24 at 0800, 1 Packet = 17 grams. Mix each [...] 1 tablet 1 tablet, Oral, 2 TIMES DAILY, First dose on Wed12/29/24 at 2054, If no bowel movement in 24 hours, increase to 2 tablets by mouth. Hold for loose stools. senna-docusate (SENOKOT-S/PERICOLACE) 8.6-50 MG per tablet 2 tablet 2 tablet, Oral, 2 TIMES DAILY, First dose on Wed12/29/24 at 2054, Hold for loose stools. sodium chloride (PF) 0.9% PF flush 10-20 mL 10-20 mL, Intracatheter, EVERY 1 MIN PRN, line flush, Starting on Wed12/29/24 at 2312, Flush catheter with 10 mL sodium chloride 0.9% to ensure patency or after IV medications/TPN to clear the catheter. Flush catheter with 20 mL sodium chloride 0.9% after blood draws or blood administration from the catheter. sodium chloride (PF) 0.9% PF flush 10-40 mL 10-40 mL, Intracatheter, EVERY 7 DAYS, First dose on Wed12/29/24 at 2325, To lock each CVC - Valved (Tunneled and Non-Tunneled) dormant lumen(s). Max dose: 10 mL for each lumen Sodium chloride 0.9% 10 mL for each lumen to flush line and lock the lumen. sodium chloride (PF) 0.9% PF flush 10-40 mL 10-40 mL, Intracatheter, DAILY, First dose on Wed12/30/24 at 0800, Max dose: 10 mL for each lumen Sodium chloride 0.9% 10 mL for each lumen to flush line and lock the lumen when not in use. $Given 12/31/2024 8:28 AM CDT 10 mLs sodium chloride (PF) 0.9% PF flush 3 mL 3 mL, Intracatheter, EVERY 1 HOUR PRN, line flush, post meds or blood draw, Starting on Wed12/29/24 at 2045, for peripheral IV flush post IV meds $Given 12/29/2024 9:21 PM CDT 3 mLs sodium chloride (PF) 0.9% PF flush 3 mL 3 mL, Intracatheter, EVERY 8 HOURS, First dose on Wed12/29/24 at 2054, And Q1H PRN, to lock peripheral IV dormant line. $Given 12/31/2024 12:36 PM CDT 3 mLs $Given 12/31/2024 4:11 AM CDT 3 mLs $Given 12/30/2024 8:22 PM CDT 3 mLs documented in this encounter Active and Recently Administered Medications Times are shown in CDT. Scheduled Medication Order 12/29/2024 12/30/2024 12/31/2024 acetaminophen (TYLENOL) tablet 975 mg 975 mg, Oral, EVERY 8 HOURS, First dose on Wed12/29/24 at 2054, Maximum acetaminophen dose from all sources = 75 mg/kg/day not to exceed 4 grams/day. 2156 ($Given - Provider: Celestina Whiteside RN) 0527 ($Given - Provider: Coy Hess RN)1353 ($Given - Provider: Merissa Coates RN)2020 ($Given - Provider: Alexia Dumont RN) 0620 ($Given - Provider: Coy Hess RN)1236 ($Given - Provider: Rin Ojeda, SOFIA) apixaban ANTICOAGULANT (ELIQUIS) tablet 5 mg 5 mg, Oral, 2 TIMES DAILY, First dose on Wed12/29/24 at 2130, Indications: DVT-PE Prophylaxis 2156 ($Given - Provider: Celestina Whiteside RN) 0744 ($Given - Provider: eMrissa Coates RN)2020 ($Given - Provider: Alexia Dumont RN) 0828 ($Given - Provider: Rin Ojeda, SOFIA) FLUoxetine (PROzac) capsule 40 mg 40 mg, Oral, DAILY, First dose on Wed12/30/24 at 0800 0744 ($Given - Provider: Merissa Coates RN) 0828 ($Given - Provider: Rin Ojeda, SOFIA) folic acid (FOLVITE) tablet 1 mg 1 mg, Oral, DAILY, First dose on Wed12/30/24 at 0800 0744 ($Given - Provider: Merissa Coates RN) 0828 ($Given - Provider: Rin Ojeda RN) hydromorphone (DILAUDID) injection 2 mg (CANCELED) 2 mg, Intravenous, EVERY 2 HOURS, First dose (after last modification) on Wed12/29/24 at 2230 2323 ($Given - Provider: Celestina Whiteside RN) 0137 ($Given - Provider: Celestina Whiteside RN)0329 ($Given - Provider: Javan Mg RN)0527 ($Given - Provider: Coy Hess RN)0734 ($Given - Provider: Merissa Coates RN) hydroxyurea (HYDREA) capsule 1,000 mg 1,000 mg, Oral, 2 TIMES DAILY, First dose on Wed12/29/24 at 2200, Indications: sickle cell disease, Do not crush May require hepatic and/or renal dose or frequency adjustments. See reference link for guidelines. 2358 ($Given - Provider: Celestina Whiteside RN) 0743 ($Given - Provider: Merissa Coates RN)2016 ($Given - Provider: Alexia Dumont RN) 0827 ($Given - Provider: Rin Ojeda, SOFIA) lactated ringers BOLUS 1,000 mL (COMPLETED) Intravenous, 1,000 mL, ONCE, at 500 mL/hr, Administer over 2 Hours, On Wed12/29/24 at 1810, For 1 dose 1820 ($New Bag - Provider: Mely Barbour RN)2026 (Rate/Dose Verify - Provider: Celestina Whiteside RN) 0003 (Stopped - Provider: Celestina Whiteside RN) multivitamin, therapeutic (THERA-VIT) tablet 1 tablet 1 tablet, Oral, DAILY, First dose on 12/30/24 at 0800 0743 ($Given - Provider: Merissa Coates RN) 0828 ($Given - Provider: Rin Ojeda, RN) polyethylene glycol (MIRALAX) Packet 17 g 17 g, Oral, DAILY, First dose on Wed12/30/24 at 0800, 1 Packet = 17 grams. Mix each gram with at least 1/2 ounce (15 mL) of water - 8 ounces for 17 g dose, 4 ounces for 8.5 g dose, 2 ounces for 4 g dose. Follow with the same volume of water. Hold for loose stools unless being administered as part of a bowel prep regimen or bowel clean out. 0740 (Not Given - Provider: Merissa Coates RN - Reason: Patient/family refused) 0834 (Not Given - Provider: Rin Ojeda RN - Reason: Patient/family refused) senna-docusate (SENOKOT-S/PERICOLACE) 8.6-50 MG per tablet 1 tablet(Linked Group 1) 1 tablet, Oral, 2 TIMES DAILY, First dose on Wed12/29/24 at 2054, If no bowel movement in 24 hours, increase to 2 tablets by mouth. Hold for loose stools. 2122 (Not Given - Provider: Celestina Whiteside RN - Reason: Patient/family refused) 0740 (Not Given - Provider: Merissa Coates RN - Reason: Patient/family refused)2019 (See Alternative - Provider: Alexia Dumont RN) 0834 (See Alternative - Provider: Rin Ojeda RN) senna-docusate (SENOKOT-S/PERICOLACE) 8.6-50 MG per tablet 2 tablet(Linked Group 1) 2 tablet, Oral, 2 TIMES DAILY, First dose on Wed12/29/24 at 2054, Hold for loose stools. 2122 (See Alternative - Provider: Celestina Whiteside RN) 0740 (See Alternative - Provider: Merissa Coates RN)2019 (Not Given - Provider: Alexia Dumont RN - Reason: Patient/family refused) 0834 (Not Given - Provider: Rin Ojeda RN - Reason: Patient/family refused) sodium chloride (PF) 0.9% PF flush 10-40 mL 10-40 mL, Intracatheter, EVERY 7 DAYS, First dose on Wed12/29/24 at 2325, To lock each CVC - Valved (Tunneled and Non-Tunneled) dormant lumen(s). Max dose: 10 mL for each lumen Sodium chloride 0.9% 10 mL for each lumen to flush line and lock the lumen. 0005 (Not Given - Provider: Celestina Whiteside RN - Reason: IV Infusing) sodium chloride (PF) 0.9% PF flush 10-40 mL 10-40 mL, Intracatheter, DAILY, First dose on Wed12/30/24 at 0800, Max dose: 10 mL for each lumen Sodium chloride 0.9% 10 mL for each lumen to flush line and lock the lumen when not in use. 0740 (Not Given - Provider: Merissa Coates RN - Reason: IV Infusing) 0828 ($Given - Provider: Rin Ojeda RN) sodium chloride (PF) 0.9% PF flush 3 mL 3 mL, Intracatheter, EVERY 8 HOURS, First dose on Wed12/29/24 at 2055, And Q1H PRN, to lock peripheral IV dormant line. 2121 (Canceled Entry - Provider: Celestina Whiteside RN) 0528 ($Given - Provider: Coy Hess RN)1355 ($Given - Provider: Merissa Coates RN)2021 ($Given - Provider: Alexia Dumont RN) 0411 ($Given - Provider: Coy Hess RN)1236 ($Given - Provider: Rin Ojeda, RN) Continuous Medication Order 12/29/2024 12/30/2024 12/31/2024 lactated ringers infusion at 75 mL/hr, Intravenous, CONTINUOUS, Starting on Wed12/29/24 at 2050, Until 12/31/24 at 1636 2120 ($New Bag - Provider: Celestina Whiteside RN) 0004 (Rate/Dose Verify - Provider: Celestina Whiteside RN)0212 (Rate/Dose Verify - Provider: Celestina Whiteside RN)0401 (Rate/Dose Verify - Provider: Coy Hess RN)0741 (Rate/Dose Verify - Provider: Merissa Coates RN)1402 ($New Bag - Provider: Merissa Coates RN) 0411 ($New Bag - Provider: Coy Hess RN) PRN Medication Order 12/29/2024 12/30/2024 12/31/2024 alum & mag hydroxide-simethicone (MAALOX) suspension 30 mL 30 mL, Oral, EVERY 6 HOURS PRN, indigestion, Starting on Wed12/29/24 at 2046, Shake well. calcium carbonate (TUMS) chewable tablet 1,000 mg 1,000 mg, Oral, 4 TIMES DAILY PRN, heartburn, Starting on Wed12/29/24 at 2224 diphenhydrAMINE (BENADRYL) capsule 25-50 mg 25-50 mg, Oral, EVERY 6 HOURS PRN, itching, sleep, anxiety, Starting on Wed12/29/24 at 2123 2157 ($Given - Provider: Celestina Whiteside RN) 1429 ($Given - Provider: Merissa Coates RN) hydromorphone (DILAUDID) injection 2 mg (COMPLETED) 2 mg, Intravenous, EVERY 1 HOUR PRN, severe pain, Starting on Wed12/29/24 at 1805, For 3 doses 1827 ($Given - Provider: Sheree Lang RN)1945 ($Given - Provider: Celestina Whiteside RN)2106 ($Given - Provider: Celestina Whiteside RN) hydromorphone (DILAUDID) injection 2 mg 2 mg, Intravenous, EVERY 2 HOURS PRN, severe pain, Starting on Wed12/30/24 at 0848 0937 ($Given - Provider: Merissa Coates RN)1149 ($Given - Provider: Merissa Coates RN)1355 ($Given - Provider: Merissa Coates RN)1601 ($Given - Provider: Merissa Coates RN)1805 ($Given - Provider: Merissa Coates RN)2017 ($Given - Provider: Alexia Dumont RN)2221 ($Given - Provider: Alexia Dumont RN) 0014 ($Given - Provider: Coy Hess, RN)0213 ($Given - Provider: Coy Hess, RN)0411 ($Given - Provider: Coy Hess RN)0620 ($Given - Provider: Coy Hess RN)0820 ($Given - Provider: Deya Carpio, RN)1031 ($Given - Provider: Rin Ojeda, RN)1236 ($Given - Provider: Rin Ojeda, RN) melatonin tablet 5 mg 5 mg, Oral, AT BEDTIME PRN, sleep, Starting on Wed12/29/24 at 2225, Do not give unless at least 6 hours of uninterrupted sleep is expected. If patient has multiple medications ordered PRN sleep/insomnia, offer melatonin first. 2020 ($Given - Provider: Alexia Dumont RN) naloxone (NARCAN) injection 0.2 mg(Linked Group 2) 0.2 mg, Intravenous, EVERY 2 MIN PRN, opioid reversal, Starting on 12/30/24 at 0856, Administer intravenous route when available and notify [...] parameters have not improved after 4 naloxone doses. naloxone (NARCAN) injection 0.2 mg(Linked Group 2) 0.2 mg, Intramuscular, EVERY 2 MIN PRN, opioid reversal, Starting on 12/30/24 at 0856, Administer intramuscular if an intravenous route is [...] parameters have not improved after 4 naloxone doses. naloxone (NARCAN) injection 0.4 mg(Linked Group 2) 0.4 mg, Intravenous, EVERY 2 MIN PRN, opioid reversal, Starting on 12/30/24 at 0856, Administer intravenous route when available and notify [...] parameters have not improved after 4 naloxone doses. naloxone (NARCAN) injection 0.4 mg(Linked Group 2) 0.4 mg, Intramuscular, EVERY 2 MIN PRN, opioid reversal, Starting on 12/30/24 at 0856, Administer intramuscular if an intravenous route is [...] parameters have not improved after 4 naloxone doses. Patient is already receiving anticoagulation with heparin, enoxaparin (LOVENOX), warfarin (COUMADIN) or other anticoagulant medication CONTINUOUS PRN, Starting on Wed12/29/24 at 2225, Until Wed12/31/24 at 1636 sodium chloride (PF) 0.9% PF flush 10-20 mL 10-20 mL, Intracatheter, EVERY 1 MIN PRN, line flush, Starting on Wed12/29/24 at 2312, Flush catheter with 10 mL sodium chloride 0.9% to ensure patency or after IV medications/TPN to clear the catheter. Flush catheter with 20 mL sodium chloride 0.9% after blood draws or blood administration from the catheter. sodium chloride (PF) 0.9% PF flush 3 mL 3 mL, Intracatheter, EVERY 1 HOUR PRN, line flush, post meds or blood draw, Starting on Wed12/29/24 at 2046, for peripheral IV flush post IV meds 2121 ($Given - Provider: Celestina Whiteside RN) Linked Groups Order Group 1: senna-docusate (SENOKOT-S/PERICOLACE) 8.6-50 MG per tablet 1 tabletJump to med 1 tablet, Oral, 2 TIMES DAILY, First dose on Wed12/29/24 at 205, If no bowel movement in 24 hours, increase to 2 tablets by mouth. Hold for loose stools. Or senna-docusate (SENOKOT-S/PERICOLACE) 8.6-50 MG per tablet 2 tabletJump to med 2 tablet, Oral, 2 TIMES DAILY, First dose on Wed12/29/24 at 2054, Hold for loose stools. Group 2: naloxone (NARCAN) injection 0.2 mgJump to med 0.2 mg, Intravenous, EVERY 2 MIN PRN, opioid reversal, Starting on 12/30/24 at 0856, Administer intravenous route when available and notify [...] parameters have not improved after 4 naloxone doses. Or naloxone (NARCAN) injection 0.4 mgJump to med 0.4 mg, Intravenous, EVERY 2 MIN PRN, opioid reversal, Starting on 12/30/24 at 0856, Administer intravenous route when available and notify [...] parameters have not improved after 4 naloxone doses. Or naloxone (NARCAN) injection 0.2 mgJump to med 0.2 mg, Intramuscular, EVERY 2 MIN PRN, opioid reversal, Starting on 12/30/24 at 0856, Administer intramuscular if an intravenous route is [...] parameters have not improved after 4 naloxone doses. Or naloxone (NARCAN) injection 0.4 mgJump to med 0.4 mg, Intramuscular, EVERY 2 MIN PRN, opioid reversal, Starting on 12/30/24 at 0856, Administer intramuscular if an intravenous route is [...] parameters have not improved after 4 naloxone doses. documented in this encounter Care Teams Vp Training Relationship Specialty Start Date End Date Veronica Joseph MD [address] [place] [address] PCP - General Family Medicine 06/18/24 Mor Ramsey Medical Student 04/03/24 Case Samuel MD [address] [facility] [address] [place] [address] Assigned Pediatric Specialist Provider 05/18/24 Juhi Benson, RN Specialty Carding Machine Operator Hematology & Oncology 05/29/24 Olinda Vora APRN RECONCILIATION ACCOUNTANT [address] [place], [place] [id number] Assigned Cancer Care Provider 08/16/24 Stiven Stanley LP [address] [place], [place] [id number] Psychologist PSYCHOLOGIST CLINICAL 10/25/24 Star Galarza MD [employer] . [address] [place], [place] [address] Home Infusion Following Provider Infectious Diseases 11/07/24 Aliyah Hudson, SOFIA Home Infusion Audit Reviewer 11/16/24 01/04/25 documented as of this encounter
--- OUTSIDE RECORDS SUMMARY | 2025-01-01 21:28 | XMS_ITS | Encounter Summary ---
Author Organization [facility] Address [address] [place] [address] Care Team Providers Care Registered Dental Assistant Name Role Phone Roxy Mor Unavailable Unavailable Case Samuel MD Unavailable [phone] Juhi Benson RN Unavailable Unavailable Veronica Joseph MD Primary Care Provider [phone] Olinda Vora APRN SENIOR PRODUCT DESIGNER Unavailable [phone] Stiven Stanley Unavailable Star Galarza MD Unavailable [phone] Aliyah Hudson RN Unavailable Unavailable Reason for Visit * Reason Comments Sickle Cell Pain Crisis * Auth/Cert Specialty Diagnoses / Procedures Referred By Shahid pendleton Referred To Contact EMERGENCY MEDICINE Diagnoses Sickle cell pain crisis (H) Misael De La Rosa DO [address] [place] [address] Phone: tel: fax: LTAC[facility] located within [facility] Emergency Department [address] [place] [address] Phone: tel: Referral ID Status Reason Start Date Expiration Date Visits Re quested Visits Authorized [id number] 1 1 Encounter Details Date Type Department Care Team ([facility] Contact Info) Description 01/01/2025 9:28 PM CDT - 01/02/2025 12:54 AM CDT Emergency [facility] located 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 Gender Identity Not on file Sexual Orientation Not on file documented as of this encounter Last Filed Vital Signs Vital Sign Reading Time Taken Comments Blood Pressure 109/55 01/01/2025 10:44 PM CDT Pulse 103 01/01/2025 10:44 PM CDT Temperature 37.2 C (99 F) 01/01/2025 9:23 PM CDT Respiratory Rate 18 01/01/2025 10:44 PM CDT Oxygen Saturation 98% 01/01/2025 10:44 PM CDT Inhaled Oxygen Concentration - - Weight 49.9 kg (110 lb) 01/01/2025 9:23 PM CDT Height 165.1 cm (5' 5) 01/01/2025 9:23 PM CDT Body Mass Index 18.3 01/01/2025 9:23 PM CDT documented in this encounter Discharge Instructions * Attachments The following attachments cannot be sent through Care Everywhere. * Sickle Cell Crisis (Bengali) documented in this encounter Medications at [...] 5 naloxone (NARCAN) 4 MG/0.1ML nasal spray Rhame 1 spray (4 mg) into one nostril [...] push every 8 hours for 8 days. [id number] mL 12/01/2024 11:59 PM CDT 5 01/05/20 25 ceFAZolin (ANCEF) injectionIndicatio ns:MSSA bacteremia Inject 20 mLs (2 g) over 5-10 minutes into the vein via push every 8 hours for 24 days. [id number] mL 11/28/2024 11:59 PM CDT 5 01/05/20 25 Emergency Supply Kit, Central,Indication s:MSSA bacteremia Patient use for emergency only. Contents: 3 sodium chloride 0.9% flushes, 1 dressing kit, 1 microclave ext set 14, 4 nitrile gloves (med), 6 alcohol prep pads, 1 bacitracin, 1 syringe (10 cc 20 G 1). Call to reorder. [id number] kit 5 01/05/20 25 Emergency Supply Kit, Central,Indication s:MSSA bacteremia Patient use for emergency only. Contents: 3 sodium chloride 0.9% flushes, 1 dressing kit, 1 microclave ext set 14, 4 nitrile gloves (med), 6 alcohol prep pads, 1 bacitracin, 1 syringe (10 cc 20 G 1). Call to reorder. [id number] kit 5 01/05/20 25 Emergency Supply Kit, [place],Indication s:MSSA bacteremia Patient use for emergency only. Contents: 3 sodium chloride 0.9% flushes, 1 dressing kit, 1 microclave ext set 14, 4 nitrile gloves (med), 6 alcohol prep pads, 1 bacitracin, 1 syringe (10 cc 20 G 1). Call to reorder. [id number] kit 11/07/2024 11:59 PM CDT 5 01/05/20 [...] Do not place syringe on sterile field. [id number] kit 5 01/05/20 25 Port Access KitIndications:RIMA A bacteremia For nurse use only. Do not remove items from bag. Use for port access. Do not place syringe on sterile field. [id number] kit 5 01/05/20 25 Port Access KitIndications:RIMA A bacteremia For nurse use only. Do not remove items from bag. Use for port access. Do not place syringe on sterile field. [id number] kit 11/28/2024 11:59 PM CDT 5 01/05/20 25 sodium chloride, PF, 0.9% PF flushIndications:M SSA bacteremia Inject 10 mLs into the vein as needed for line flush. Flush IV before and after med administration as directed and/or at least every 24 hours, or prior to deaccessing for no further use and/or at least every 4 weeks when not accessed. [id number] mL 12/12/2024 11:59 PM CDT 5 01/05/20 25 sodium chloride, PF, 0.9% PF flushIndications:M SSA bacteremia Inject 10 mLs into the vein as needed for line flush. Flush IV before and after med administration as directed and/or at least every 24 hours, or prior to deaccessing for no further use and/or at least every 4 weeks when not accessed. [id number] mL 12/01/2024 11:59 PM CDT 5 01/05/20 25 sodium chloride, PF, 0.9% PF flushIndications:M SSA bacteremia Inject 10 mLs into the vein as needed for line flush. Flush IV before and after med administration as directed and/or at least every 24 hours, or prior to deaccessing for no further use and/or at least every 4 weeks when not accessed. [id number] mL 11/28/2024 11:59 PM CDT 5 01/05/20 25 documented as of this encounter ED Notes * Jorge Patel DO - 01/02/2025 12:42 AM CDT Patient feels improved. Requesting discharge. Jorge Patel DO 01/02/25 0042 * Alex Morton MD - 01/01/2025 9:34 PM CDT ED Provider Note [facility] History Chief Complaint Patient presents with Sickle Cell Pain Crisis HPI Gianna Hernández is a 29 year old female with a history of sickle cell disease (HbSS) c/b [...] (09/08/24) who presents to the emergency department for sickle cell pain crisis. The patient states that she is having sickle cell pain in her back and legs. Her at home Dilaudid did help a little bit. She denies any fevers. Past Medical History Past Medical History: Diagnosis [...] all other systems negative. Physical Exam BP: 109/72 Pulse: 116 Temp: 99 ??F (37.2 ??C) Resp: 18 Height: 165.1 cm (5' 5) Weight: 49.9 kg (110 lb) SpO2: 97 % Physical Exam Vital Signs Reviewed Gen: Well nourished, well developed, resting comfortably, no acute distress HEENT: NC/AT, PERRL, EOMI, MMM Neck: Supple, FROM CV: Regular Rate Lungs/Chest: Normal Effort Abd: Non-distended MSK/Back: FROM, no visible deformity Neuro: A&Ox3, GCS 15, CN II-XII unremarkable. Strength and sensation globally intact. Skin: Warm, Dry, Intact, no visible lesions ED Course, Procedures, & Data Procedures Results for orders placed or performed during the hospital encounter of 01/01/25 Comprehensive Metabolic Panel (Limited Occurrences) Result Value Ref Range Sodium 137 135 - 145 mmol/L Potassium 4.4 3.4 - 5.3 mmol/L Carbon Dioxide (CO2) 21 (L) 22 - 29 mmol/L Anion Gap 12 7 - 15 mmol/L Urea Nitrogen 11.6 6.0 - 20.0 mg/dL Creatinine 0.70 0.51 - 0.95 mg/dL GFR Estimate >90 >60 mL/min/1.73m2 Calcium 9.4 8.8 - 10.4 mg/dL Chloride 104 98 - 107 mmol/L Glucose 101 (H) 70 - 99 mg/dL Alkaline Phosphatase 111 40 - 150 U/L AST 66 (H) 0 - 45 U/L ALT 54 (H) 0 - 50 U/L Protein Total 8.2 6.4 - 8.3 g/dL Albumin 4.5 3.5 - 5.2 g/dL Bilirubin Total 2.1 (H) <=1.2 mg/dL CBC with platelets and differential Result Value Ref Range WBC Count 12.84 (H) 4.00 - 11.00 10e3/uL RBC Count 2.27 (L) 3.80 - 5.20 10e6/uL Hemoglobin 7.6 (L) 11.7 - 15.7 g/dL Hematocrit 21.7 (L) 35.0 - 47.0 % MCV 95.6 78.0 - 100.0 fL MCH 33.5 (H) 26.5 - 33.0 pg MCHC 35.0 31.5 - 36.5 g/dL RDW 20.2 (H) 10.0 - 15.0 % Platelet Count 364 150 - 450 10e3/uL % Neutrophils 66.3 % % Lymphocytes 19.9 % % Monocytes 11.9 % % Eosinophils 0.2 % % Basophils 0.9 % % Immature Granulocytes 0.8 % NRBCs per 100 WBC 1.4 (H) <1.0 /100 Absolute Neutrophils 8.51 (H) 1.60 - 8.30 10e3/uL Absolute Lymphocytes 2.55 0.80 - 5.30 10e3/uL Absolute Monocytes 1.53 (H) 0.00 - 1.30 10e3/uL Absolute Eosinophils 0.03 0.00 - 0.70 10e3/uL Absolute Basophils 0.12 0.00 - 0.20 10e3/uL Absolute Immature Granulocytes 0.10 <=0.40 10e3/uL Absolute NRBCs 0.18 10e3/uL RBC and Platelet Morphology Result Value Ref Range RBC Morphology Confirmed RBC Indices Platelet Assessment Automated Count Confirmed. Platelet morphology is normal. Automated Count Confirmed. Platelet morphology is normal. [place] Bodies Present (A) None Seen Polychromasia Slight (A) None Seen Sickle Cells Slight (A) None Seen Target Cells Slight (A) None Seen Medications hydromorphone (DILAUDID) injection 2 mg (2 mg Intravenous $Given 01/02/25 0039) lactated ringers BOLUS 1,000 mL (0 mLs Intravenous Stopped 01/02/25 0042) ondansetron (ZOFRAN) injection 8 mg (8 mg Intravenous Not Given 01/01/25 2223) Critical care was not performed. Medical Decision Making The patient's presentation was of high complexity (a chronic illness severe exacerbation, progression, or side effect of treatment). The patient's evaluation involved: ordering and/or review of 3+ test(s) in this encounter (see separate area of note for details) The patient's management necessitated high risk (a parenteral controlled substance) and further care after sign-out to Dr. Patel (see their note for further management). Assessment & Plan Gianna Hernández is a 29 year old female with a history of sickle cell disease (HbSS) c/b [...] (09/08/24) who presents to the emergency department for sickle cell pain crisis. 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 Patient had lines removed. Subsequent blood cultures have been negative. She is not having fevers chest pain shortness of breath or other concerning cardiopulmonary symptoms today. States she is here for pain that is consistent with prior sickle cell episodes. Patient receiving additional rounds of pain medication. Her labs show a improved leukocytosis compared to the last couple days. Stable anemia. CMP appears fairly consistent with prior. Patient will be signed out to my colleague Dr. Patel follow-up on sickle cell care plan reassess andprovide final disposition. Discharge Medication List as of 01/02/2025 12:43 AM Final diagnoses: Sickle cell pain crisis (H) Luisa Long, am serving as a trained manager of medical to document services personally performed by Alex Morton Jr., MD based on the provider's statements to me on January 01, 2025. This document has been checked and approved by the attending provider. I, Alex Morton Jr., MD, was physically present and have reviewed and verified the accuracy ofthis note documented by sissy Flores. Alex Morton Jr., MD [facility] EMERGENCY DEPARTMENT 01/01/2025 Alex Morton MD 01/02/25 0254 * Lynn Estrada RN - 01/01/2025 9:25 PM CDT Patient is ambulatory into triage with complaints of sickle cell pain crisis. History of sickle cell. Reports this is her usual sickle cell pain. Endorses taking PO diluadid at home, denies any relief. VSS in triage. Triage Assessment (Adult) Row Name 01/01/25212401/01/252123 Triage Assessment Airway WDL WDL WDL Respiratory WDL Respiratory WDL WDL WDL Skin Circulation/Temperature WDL Skin Circulation/Temperature WDL WDL -- Cardiac WDL Cardiac WDL WDL -- Peripheral/Neurovascular WDL Peripheral Neurovascular WDL WDL -- Cognitive/Neuro/Behavioral WDL Cognitive/Neuro/Behavioral WDL WDL -- documented in this encounter Miscellaneous Notes * Plan of Care - Mason Moon RN - 01/02/2025 12:53 AM CDT BP 109/55 Pulse 103 Temp 99 ??F (37.2 ??C) (Oral) Resp 18 Ht 1.651 m (5' 5) Wt 49.9 kg (110 lb) LMP 12/19/2024 (Approximate) SpO2 98% BMI 18.30 kg/m?? Patient discharged home at 0050. Dilaudid 2 mg iv given before leaving the floor. Discharge instruction hard copy provided. documented in this encounter Plan of Treatment Upcoming Encounters Date Type Department Care Team (Late st Contact Info) Description 02/15/2025 10:30 AM CDT Lab [facility] [address] [phone] Olinda Vora APRN SENIOR PRODUCT DESIGNER [address] [place] [address] 02/15/2025 11:00 AM CDT Oncology Visit [facility] [address] [phone] Olinda Vora APRN SENIOR PRODUCT DESIGNER [address] [place] [address] 04/09/2025 3:00 PM CAREER DEVELOPMENT ASSOCIATE Lab [facility] [address] [phone] Case Samuel MD [address] [place] [address], [address] [place] [address] 04/09/2025 3:30 PM CAREER DEVELOPMENT ASSOCIATE Oncology Visit [facility] [address] [phone] Case Samuel MD [address] [place], [place] [address], [address] [place], [place] [address] documented as of this encounter Goals Goal [...] Diagnosis Comments RBC AND PLATELET MORPHOLOGY STAT 01/01/2025 10:44 PM CDT CBC WITH PLATELETS AND DIFFERENTIAL STAT 01/01/2025 10:44 PM CDT CBC WITH PLATELETS AND DIFFERENTIAL (LIMITED OCCURRENCES) STAT 01/01/2025 10:44 PM CDT COMPREHENSIVE METABOLIC PANEL (LIMITED OCCURRENCES) STAT 01/01/2025 10:44 PM CDT documented in this encounter Results * (ABNORMAL) RBC and Platelet Morphology (01/01/2025 10:44 PM CDT) RBC Morphology Confirmed RBC Indices 01/01/2025 11:35 PM CDT [facility] Platelet Assessment Automated Count Confirmed. Platelet morphology is normal. Automated Count Confirmed. Platelet morphology is normal. 01/01/2025 11:35 PM CDT [facility] [place] Bodies Present(A) None Seen 01/01/2025 11:35 PM CDT [facility] Polychromasia Slight(A) None Seen 01/01/2025 11:35 PM CDT [facility] Sickle Cells Slight(A) None Seen 01/01/2025 11:35 PM CDT [facility] Target Cells Slight(A) None Seen 01/01/2025 11:35 PM CDT [facility] Blood BLOOD SPECIMEN / Unknown Venipuncture / Unknown 01/01/2025 10:44 PM CDT 01/01/2025 10:49 PM CDT us Alex Morton MD LAB - BLOOD ORDERABLES Final Result [facility] [address] [facility], [address] [place] [address], [facility] * (ABNORMAL) CBC with platelets and differential (01/01/2025 10:44 PM CDT) WBC Count 12.84(H) 4.00 - 11.00 10e3/uL 01/01/2025 11:35 PM CDT [facility] RBC Count 2.27(L) 3.80 - 5.20 10e6/uL 01/01/2025 11:35 PM CDT [facility] Hemoglobin 7.6(L) 11.7 - 15.7 g/dL 01/01/2025 11:35 PM CDT [facility] Hematocrit 21.7(L) 35.0 - 47.0 % 01/01/2025 11:35 PM CDT [facility] MCV 95.6 78.0 - 100.0 fL 01/01/2025 11:35 PM CDT [facility] MCH 33.5(H) 26.5 - 33.0 pg 01/01/2025 11:35 PM CDT [facility] MCHC 35.0 31.5 - 36.5 g/dL 01/01/2025 11:35 PM CDT [facility] RDW 20.2(H) 10.0 - 15.0 % 01/01/2025 11:35 PM CDT [facility] Platelet Count 364 150 - 450 10e3/uL 01/01/2025 11:35 PM CDT [facility] % Neutrophils 66.3 % 01/01/2025 11:35 PM CDT [facility] % Lymphocytes 19.9 % 01/01/2025 11:35 PM CDT [facility] % Monocytes 11.9 % 01/01/2025 11:35 PM CDT [facility] % Eosinophils 0.2 % 01/01/2025 11:35 PM CDT [facility] % Basophils 0.9 % 01/01/2025 11:35 PM CDT [facility] % Immature Granulocytes 0.8 % 01/01/2025 11:35 PM CDT [facility] NRBCs per 100 WBC 1.4(H) <1.0 /100 01/01/2025 11:35 PM CDT [facility] Absolute Neutrophils 8.51(H) 1.60 - 8.30 10e3/uL 01/01/2025 11:35 PM CDT [facility] Absolute Lymphocytes 2.55 0.80 - 5.30 10e3/uL 01/01/2025 11:35 PM CDT [facility] Absolute Monocytes 1.53(H) 0.00 - 1.30 10e3/uL 01/01/2025 11:35 PM CDT [facility] Absolute Eosinophils 0.03 0.00 - 0.70 10e3/uL 01/01/2025 11:35 PM CDT [facility] Absolute Basophils 0.12 0.00 - 0.20 10e3/uL 01/01/2025 11:35 PM CDT [facility] Absolute Immature Granulocytes 0.10 <=0.40 10e3/uL 01/01/2025 11:35 PM CDT [facility] Absolute NRBCs 0.18 10e3/uL 01/01/2025 11:35 PM CDT [facility] Blood BLOOD SPECIMEN / Unknown Venipuncture / Unknown 01/01/2025 10:44 PM CDT 01/01/2025 10:49 PM CDT Alex Morton MD LAB - BLOOD ORDERABLES Final Result [facility] [address] [facility], [address] [place] [address] * (ABNORMAL) Comprehensive Metabolic Panel (Limited Occurrences) (01/01/2025 10:44 PM CDT) Sodium 137 135 - 145 mmol/L 01/01/2025 11:24 PM CDT [facility] Potassium 4.4 3.4 - 5.3 mmol/L 01/01/2025 11:24 PM CDT [facility] Carbon Dioxide (CO2) 21(L) 22 - 29 mmol/L 01/01/2025 11:24 PM CDT [facility] Anion Gap 12 7 - 15 mmol/L 01/01/2025 11:24 PM CDT [facility] Urea Nitrogen 11.6 6.0 - 20.0 mg/dL 01/01/2025 11:24 PM CDT [facility] Creatinine 0.70 0.51 - 0.95 mg/dL 01/01/2025 11:24 PM CDT [facility] GFR Estimate >90 >60 mL/min/1.7 3m2 01/01/2025 11:24 PM CDT [facility] Comment:eGFR calculated us2020 CKD-EPI equation. Calcium 9.4 8.8 - 10.4 mg/dL 01/01/2025 11:24 PM CDT [facility] Chloride 104 98 - 107 mmol/L 01/01/2025 11:24 PM CDT [facility] Glucose 101(H) 70 - 99 mg/dL 01/01/2025 11:24 PM CDT [facility] Alkaline Phosphatase 111 40 - 150 U/L 01/01/2025 11:24 PM CDT [facility] AST 66(H) 0 - 45 U/L 01/01/2025 11:24 PM CDT [facility] ALT 54(H) 0 - 50 U/L 01/01/2025 11:24 PM CDT [facility] Protein Total 8.2 6.4 - 8.3 g/dL 01/01/2025 11:24 PM CDT [facility] Albumin 4.5 3.5 - 5.2 g/dL 01/01/2025 11:24 PM CDT [facility] Bilirubin Total 2.1(H) <=1.2 mg/dL 01/01/2025 11:24 PM CDT [facility] Blood BLOOD SPECIMEN / Unknown Venipuncture / Unknown 01/01/2025 10:44 PM CDT 01/01/2025 10:49 PM CDT Alex Morton MD LAB - BLOOD ORDERABLES Final Result [facility] [address] [facility] [place] [address], [facility] documented in this encounter Visit Diagnoses Diagnosis 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 documented in this encounter Administered Medications Inactive Administered Medications - up to 3 most recent administrations Medication Order MAR Action Action Date Dose Rate Site hydromorphone (DILAUDID) injection 2 mg 2 mg, Intravenous, EVERY 1 HOUR PRN, severe pain, Starting on Wed01/01/25 at 2149, For 3 doses $Given 01/02/2025 12:39 AM CDT 2 mg $Given 01/01/2025 11:18 PM CDT 2 mg $Given 01/01/2025 10:14 PM CDT 2 mg lactated ringers BOLUS 1,000 mL Intravenous, 1,000 mL, ONCE, at 500 mL/hr, Administer over 2 Hours, On Wed01/01/25 at 2155, For 1 dose $New Bag 01/01/2025 10:22 PM CDT 1,000 mLs 500 mL/hr documented in this encounter Active and Recently Administered Medications Times are shown in CDT. Scheduled Medication Order 12/31/2024 01/01/2025 01/02/2025 lactated ringers BOLUS 1,000 mL (COMPLETED) Intravenous, 1,000 mL, ONCE, at 500 mL/hr, Administer over 2 Hours, On Wed01/01/25 at 2155, For 1 dose 2222 ($New Bag - Provider: Fannie Marcos RN) 0042 (Stopped - Provider: Mason Moon, SOFIA) PRN Medication Order 12/31/2024 01/01/2025 01/02/2025 hydromorphone (DILAUDID) injection 2 mg (COMPLETED) 2 mg, Intravenous, EVERY 1 HOUR PRN, severe pain, Starting on Wed01/01/25 at 2149, For 3 doses 2214 ($Given - Provider: Fannie Marcos RN)2318 ($Given - Provider: Shauna Cuadra RN) 0039 ($Given - Provider: Mason Moon, SOFIA) documented in this encounter Care Teams Registered Dental Assistant Relationship Specialty Start Date End Date Veronica Joseph MD [address] [place] [address] PCP - General Family Medicine 06/18/24 Mor Ramsey Medical Student 04/03/24 Case Samuel MD [address] [place] [address], [address] [place] [address] Assigned Pediatric Specialist Provider 05/18/24 Juhi Benson, SOFIA Specialty [employer] Hematology & Oncology 05/29/24 Olinda Vora APRN SENIOR PRODUCT DESIGNER [address] [place] [address] Assigned Cancer Care Provider 08/16/24 Stiven Stanley LP [address] [place] [address] Psychologist PSYCHOLOGIST CLINICAL 10/25/24 Star Galarza MD [employer] [address] [facility] [address] [place], [place] [address] Home Infusion Following Provider Infectious Diseases 11/07/24 Aliyah Hudson RN Home Infusion [employer] 11/16/24 01/04/25 documented as of this encounter
--- OUTSIDE RECORDS SUMMARY | 2025-01-02 08:23 | XMS_ITS | Encounter Summary ---
Author Organization [facility] Address [address] [place] [address]. [place] [address] Care Team Providers Care Lard Bleacher Name Role Phone Roxy Mor Unavailable Unavailable Case Samuel MD Unavailable [phone] Juhi Benson RN Unavailable Unavailable Veronica Joseph MD Primary Care Provider [phone] Olinda Vora APRN MEDICAL ACCOUNTANT Unavailable [phone] Stiven Stanley Unavailable Star Galarza MD Unavailable [phone] Aliyah Hudson RN Unavailable Unavailable Reason for Visit * Reason Comments Sickle Cell Pain Crisis * Auth/Cert Specialty Diagnoses / Procedures Referred By Shahid pendleton Referred To Contact EMERGENCY MEDICINE Diagnoses Sickle cell pain crisis (H) Misael De La Rosa DO [address] [place] [address] Phone: tel: fax: [facility] [address] [place] [address] Phone: tel: Referral ID Status Reason Start Date Expiration Date Visits Re quested Visits Authorized [id number] 1 1 Encounter Details Date Type Department Care Team (Latest Contact Info) Description 01/02/2025 8:23 AM CDT - 01/04/2025 11:40 AM CDT Hospital Encounter [facility] [address] [place] [address] Jonathan Fitch MD [address] [place] [address] Misael De La Rosa, DO [address] [place], [place] [address] Sickle cell pain crisis (H) (Primary Dx); [facility] (current) use of anticoagulants Discharge Disposition: Home or Self Care Social [...] in an overnight usp, or couch-surfing.) Yes 11/09/2024 Are you worried [...] file Legal Sex Female 8:25 AM [employer]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 Gender Identity Not on file Sexual Orientation Not on file documented as of this encounter Last Filed Vital Signs Vital Sign Reading Time Taken Comments Blood Pressure 93/58 01/04/2025 9:12 AM CDT Pulse 79 01/04/2025 9:12 AM CDT Temperature 37.1 C (98.8 F) 01/04/2025 9:12 AM CDT Respiratory Rate 16 01/04/2025 9:12 AM CDT Oxygen Saturation 98% 01/04/2025 9:12 AM CDT Inhaled Oxygen Concentration - - Weight 49.9 kg (110 lb) 01/02/2025 8:19 AM CDT Height 154.9 cm (5' 1) 01/02/2025 8:19 AM CDT Body Mass Index 20.78 01/02/2025 8:19 AM CDT documented in this encounter Discharge Summaries * Kaci Olsen MD - 01/04/2025 11:09 AM CDT [facility] Hospitalist Discharge Summary Date of Admission: 01/02/2025 Date of Discharge: 01/04/2025 Discharging Provider: Kaci Olsen MD Discharge Service: Hospitalist Service, [facility] TEAM 17 Discharge Diagnoses #Sickle cell pain crisis #Back arm and leg pain #Hx acute chest syndrome #Apical thrombus #Prior + diphtheroids 1/2 blood cultures (12/29) #Hx port-associated endocarditis - remote #Hx PE #Hx DVT # Chronic Atrial Thrombus Clinically Significant Risk Factors Follow-ups Needed After Discharge Unresulted Labs Ordered in the Past 30 Days of this Admission Date and Time Order Name Status Description 01/04/2025 10:35 AM Blood Culture Peripheral blood (BC) Hand, Left In process 01/04/2025 10:35 AM Blood Culture Peripheral blood (BC) Hand, Right In process 01/02/2025 1:35 PM Blood Culture Peripheral blood (BC) Wrist, Right Preliminary 01/02/2025 1:35 PM Blood Culture Peripheral blood (BC) Hand, Right Preliminary 12/31/2024 12:31 PM Blood Culture Peripheral blood (BC) Hand, Right Preliminary 12/31/2024 12:31 PM Blood Culture Peripheral blood (BC) Hand, Left Preliminary Discharge Disposition Discharged to home Condition at discharge: Stable Hospital Course Lew Hernández is a 29F w/ [facility] sickle cell disease (HbSS) c/b acute chest syndrome, 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 She was admitted for the same to medicine on 12/29/2024 and discharged to A 12/31/2024 needing to leave for childcare. She was admitted to medicine for further treatment of sickle cell p ain crisis. Course of hospitalization patient's pain was managed on IV and oral pain medication. Patient on theday of discharge felt comfortable, however felt she had no choice but to discharge given she had her child at home she needed to take care of. We did discuss patient follow-up with her primary care provider in the outpatient setting. She had cultures 01/03/2025 which resulted in a positive gram-positive cocci in clusters, presumably contamination given identity identified as Staph epidermidis Repeat cultures were drawn on day of discharge. Patient adamantly wanted to go home. #Sickle cell pain crisis #Back arm and leg pain #Hx acute chest syndrome Follows w/ Dr. Samuel and has established pain plan. Presening w/ back arm and leg pain. Notes [facility] of childcare to be able to receive treatment for 2 days. No e/o acute chest. BL hgb ~8 - monitor for signs of acute chest - consult Heme - Acute Pain Crisis Treatment: (note that Toradol is listed as an allergy) ER/Acute Care/Infusion Clinic: Hydromorphone 2 mg IVP/SC Q1H X 3 doses LR 500 ml/hr x 2 hours (1 L total) Other: Zofran 8 mg IV Inpatient: Opioid: Hydromorphone 2 mg IV Q3H scheduled--titrate within 24-48 hours-- discussed with heme and ok for q2h prn for 1 day, titration ordered LR at maintenance rate x 1-2 days (75cc/h) Other Medications: Zofran, Oral Benadryl for anxiety [ and itching] Supportive Care: Docusate, Senna PRN - Home Pain Medications: Dilaudid 4 mg PO, Tylenol DO NOT TRANSFUSE WITHOUT DISCUSSING WITH HEMATOLOGY ATTENDING (available 16/11). #Apical thrombus #Prior + diphtheroids 1/2 blood cultures (12/29) #Hx port-associated endocarditis - remote Blood cultures 12/31 NGTD. Unclear if prior + is contaminant but ISO apical thrombus on 12/30/24 limited TTE. - trend blood cultures - MANUEL STAT Transfusion associated iron overload Transaminitis, chronic On admission t-bili 2.0, AST 67, ALT 54- stable. Suspect combination of sequalea of iron overload. Normal liver imaging 08/[address] and s/p cholecystectomy - limit APAP - transfuse only as directed per heme - limit hepatotoxins as able #Hx PE #Hx DVT # Chronic Atrial Thrombus - Echo from 01/02 shows partially calcified echodensity attached to the posterior wall of the right atrium just above the tricuspid annulus measuring 2.2 x 1.4 cm - Discussed with hematology thought to be due to chronic thrombus. 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 Kaci Olsen MD [facility] [address] [place] [id number] Physical Exam Vital Signs: Temp: 98.8 ??F (37.1 ??C) Temp src: Oral BP: 93/58 Pulse: 79 Resp: 16 SpO2: 98 % O2 Device: None (Room air) Weight: 110 lbs 0 oz General Appearance: Appears comfortable. Respiratory: Without wheezes rhonchi or rales. CTA Cardiovascular: RRR, without murmurs GI: Soft, nontender, plus BS Skin: Without obvious bleeding, bruising or excoriations Primary Care Physician Veronica Joseph Discharge Orders No discharge procedures on file. Significant Results and Procedures Results for orders placed or performed during the hospital encounter of 01/02/25 Echo MANUEL Value LVEF 55-60% [facility] [id number]^FRANKIE^PRESTON^[facility] [address] [place], [place] [address] Name: LEW HERNÁNDEZ : 1995 Study Date: 01/02/2025 02:00 PM Age: 29 yrs Gender: Female Patient Location: [facility] Reason For Study: Endocarditis History: Thrombus Ordering Physician: PRESTON NUNES Performed By: Gale Sena BSA: 1.5 m2 Height: 61 in Weight: 110 lb HR: 86 BP: 104/43 mmHg Attestation I was present during MANUEL probe placement by the fellow, Gale Sena. I personally viewed the imaging and agree with the interpretation and report as documented by the fellow. Interpretation Summary Global biventricular function is normal. There is a partially calcified echodensity attached to the posterior wall of the right atrium just above the tricuspid annulus measuring 2.2 x 1.4 cm. 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 Mild tricuspid insufficiency is present. No valvular vegetations noted. No pericardial effusion is present. Procedure Transesophageal Echocardiogram with two-dimensional, color and spectral Doppler. 3D image acquisition, reconstruction, and real-time interpretation was performed. Procedure location Echo Lab. Informed consent for Transesophegeal echo obtained. MANUEL Probe #67 was used during the procedure. Patient was sedated using Fentanyl 75 mcg. Patient was sedated using Versed 3 mg. The heart rate, respiratory rate, oxygen saturations, blood pressure, and response to care were monitored throughout the procedure with the assistance of the nurse. I determined this patient to be an appropriate candidate for the planned sedation and procedure and have reassessed the patient immediately prior to sedation and procedure. Total sedation time: 19 minutes of continuous bedside 1:1 monitoring. The Transducer was inserted without difficulty . The patient tolerated the procedure well. Complications None. Left Ventricle Left ventricular size is normal. Global and regional left ventricular function is normal with an EF of 55-60%. Right Ventricle The right ventricle is normal size. Global right ventricular function is normal. Atria The left atrial appendage is normal. It is free of spontaneous echo contrast and thrombus. Mild biatrial enlargement is present. There is a partially calcified echodensity attached to the posterior wall of the right atrium just above the tricuspid annulus measuring 2.2 x 1.4 cm. 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 The atrial septum is intact as assessed by color Doppler . Mitral Valve The mitral valve is normal. Trace mitral insufficiency is present. Aortic Valve The aortic valve is tricuspid. No aortic regurgitation is present. Tricuspid Valve No vegetation noted on the tricuspid valve. Mild tricuspid insufficiency is present. Right ventricular systolic pressure is 27mmHg above the right atrial pressure. Pulmonic Valve The pulmonic valve is normal. Trace pulmonic insufficiency is present. Vessels The thoracic aorta is normal. Pericardium No pericardial effusion is present. Report approved by: Paula Miramontes MD on 01/02/2025 02:59 PM Discharge Medications Review of your medicines UNREVIEWED [...] Commonly known as: NARCAN Dose: 4 mg [place] 1 spray (4 mg) into [...] mg) by mouth daily. 30 capsule 2 10/13/2024 folic acid (FOLVITE) 1 MG tabletIndications: Hb-SS disease without crisis (H) Take 1 tablet (1 mg) by mouth daily. 30 tablet 11 05/01/2024 hydroxyurea (HYDREA) 500 MG capsuleIndications :History of transfusion,Hb-SS disease without crisis (H) Take 2 capsules (1,000 mg) by mouth 2 times daily 120 capsule 11 05/01/2024 multivitamin, therapeutic (THERA-VIT) TABS tabletIndications: History of [...] minutes until assistance arrives 2 each 06/06/2024 ondansetron (ZOFRAN ODT) 4 MG ODT tabIndications:Gal lstones Take 1 tablet (4 mg) by mouth every 6 hours as needed for nausea or vomiting. 20 tablet 09/10/2024 polyethylene glycol (MIRALAX) 17 GM/Dose powderIndications: Sickle cell pain crisis (H) Take 17 g by mouth 2 times daily as needed for constipation. 510 g 3 09/10/2024 senna-docusate (SENOKOT-S/PERICOL DAV) 8.6-50 MG tabletIndications: Sickle cell pain crisis (H) Take 2 tablets by mouth 2 times daily as needed for constipation. 60 tablet 09/10/2024 apixaban ANTICOAGULANT (ELIQUIS) 5 MG tabletIndications: Acute pulmonary embolism without acute cor pulmonale, unspecified pulmonary embolism type (H) Take 1 tablet (5 mg) by mouth 2 times daily. 09/10/2024 01/19/20 HYDROmorphone (DILAUDID) 2 MG tabletIndications: Hb-SS disease without crisis (H) Take 1 tablet (2 mg) by mouth every 6 hours as needed for severe pain or breakthrough pain. 1 Week supply. No early refills 24 tablet 12/28/2024 01/09/20 25 documented as of this encounter Progress Notes * Jaja Patel RN - 01/04/2025 11:38 AM CDT 6MS DISCHARGE D: Patient discharged to home at 1138. I: Discharge prescriptions given to patient. All discharge medications and instructions reviewed with pt. Patient instructed to seek care if experiencing worsening symptoms, such as pain. Other phonenumbers to call with questions or concerns after discharge reviewed. IV removed. Education completed. A: PT verbalized understanding of discharge medications and instructions. Prescribed home medications given to patient. Belongings returned to patient. P: Patient to follow-up on primary care with 7 days. * Araceli Ramires MD - 01/04/2025 9:12 AM CDT Hematology Consult Progress Note I reviewed the patient's history and pertinent medical records on 01/04/2025. I met with the patientand discussed my impression and recommendations. EVENTS/SUBJECTIVE She is feeling much better today after transfusion yesterday DATA Review of pertinent results and my independent interpretation as follows: --Hemoglobin 9.7 today (up from 6.5 with only one unit) which is a markedly robust response to transfusion so not sure if this value is spurious --Mild leukocytosis persists; platelets are normal --Retics 14.63% reflecting ongoing hemolysis IMPRESSION 29-year old woman with sickle cell VOC which is relatively uncomplicated with no current evidence to support acute chest syndrome or other serious complications. RECOMMENDATIONS Acute Vaso-Occlusive Pain Episode --Continue current regimen of Dilaudid 2mg (can reduce from every 2 hours to every 3 hours if she stays past midday today) --Aggressive bowel regimen --Consider topicals (lidocaine patch, Voltaren gel, warm packs) if helpful --Please avoid IV benadryl Acute Chest Syndrome (ACS) Prevention --Monitor oxygenation and respiratory rate carefully --Encourage incentive spirometry and ambulation --Monitor for fluid overload --Please page Hematology if patient develops fever, acute shortness of breath, or other new symptoms concerning for acute chest syndrome General Sickle Cell Management --Daily CBC with differential, bilirubin, retic count for now --Please discuss further/future transfusion with Hematology first if primary team is considering this --Continue folic acid and Hydrea Thromboses --She is on apixaban for history of DVT and PE as well as right atrial thrombosis seen on cardiac imaging; continue 5mg twice daily Araecli Ramires MD Date of Service: 01/04/2025 Care of this patient today included: seeing and evaluating the patient in person, review of her chart including labs (with my independent interpretation of results) and notes from primary team and other providers, intensive monitoring of drug therapy (opioids, anticoagulants) for toxicity, decision regarding prescription drug management, discussion of management with her primary team, and documentation in the electronic medical record. * Jaja Patel RN - 01/03/2025 4:02 PM CDT Goal Outcome Evaluation: Plan of Care Reviewed With: patient Overall Patient Progress: improvingOverall Patient Progress: improving Shift: [id number] Pain: endorsing pain to the back PRN meds given, see MARS Neuro: AOX4 Cardiac: WDL, denies pain Respiratory: WDL. No SOB observed Diet/Appetite: regular LDA's: 2 PIV SL Skin: WDL Activity: independant GI/: continent of bowel and bladder, LBM 01/03 * Juliana Martines RN - 01/03/2025 11:15 AM CDT [facility] Flyer contacted to insert IV, entered patients room. Patient stated that she is vascular only. Would not allow video games storywriter to look or attempted. Updated bedside nurse and placed vascular consult. 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 She was admitted for the same to medicine on 12/29/2024 and discharged to A 12/31/2024 needing to leave for childcare. She was admitted to medicine for further treatment of sickle cell p ain crisis. Interval changes 01/03 - Still describing significant amount of pain lower back and arms. No other symptoms concerning forcough or chest pain. - Hemoglobin 6.5 this morning. Patient consented to being transfused 1 unit. - Discussed with maxine, - Continue pain plan #Sickle cell pain crisis #Back arm and leg pain #Hx acute chest syndrome Follows w/ Dr. Samuel and has established pain plan. Presening w/ back arm and leg pain. Notes [facility] of childcare to be able to receive treatment for 2 days. No e/o acute chest. BL hgb ~8 - monitor for signs of acute chest - consult Heme - Acute Pain Crisis Treatment: (note that Toradol is listed as an allergy) ER/Acute Care/Infusion Clinic: Hydromorphone 2 mg IVP/SC Q1H X 3 doses LR 500 ml/hr x 2 hours (1 L total) Other: Zofran 8 mg IV Inpatient: Opioid: Hydromorphone 2 mg IV Q3H scheduled--titrate within 24-48 hours-- discussed with heme and ok for q2h prn for 1 day, titration ordered LR at maintenance rate x 1-2 days (75cc/h) Other Medications: Zofran, Oral Benadryl for anxiety [ and itching] Supportive Care: Docusate, Senna PRN - Home Pain Medications: Dilaudid 4 mg PO, Tylenol DO NOT TRANSFUSE WITHOUT DISCUSSING WITH HEMATOLOGY ATTENDING (available 16/11). #Apical thrombus #Prior + diphtheroids 1/2 blood cultures (12/29) #Hx port-associated endocarditis - remote Blood cultures 12/31 NGTD. Unclear if prior + is contaminant but ISO apical thrombus on 12/30/24 limited TTE. - trend blood cultures - MANUEL STAT Transfusion associated iron overload Transaminitis, chronic On admission t-bili 2.0, AST 67, ALT 54- stable. Suspect combination of sequalea of iron overload. Normal liver imaging 08/[address] and s/p cholecystectomy - limit APAP - transfuse only as directed per heme - limit hepatotoxins as able #Hx PE #Hx DVT # Chronic Atrial Thrombus - Echo from 01/02 shows partially calcified echodensity attached to the posterior wall of the right atrium just above the tricuspid annulus measuring 2.2 x 1.4 cm - Discussed with hematology thought to be due to chronic thrombus. 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 Bilateral pulmonary nodules Noted on 09/2024 CT - follow up 3 months w/ PCP Diet: Regular Diet Adult DVT Prophylaxis: DOAC Santiago Catheter: Not present Lines: None Cardiac Monitoring: None Code Status: Full Code Clinically Significant Risk Factors Present on Admission # Hypocalcemia: Lowest Ca = 8.5 mg/dL in last 2 days, will monitor and replace as appropriate # Drug Induced Coagulation Defect: home medication list includes an anticoagulant medication # Anemia: based on hgb <11 # Financial/Environmental Concerns: Social Drivers of Health Disposition Plan Medically Ready for Discharge: Anticipated in 2-4 Days Kaci Olsen MD Hospitalist Service, GOLD TEAM [address] [place] [address] Securely message with [employer] (more info) Text page via [facility] Paging/Directory See signed in provider for up to date coverage information Interval History Patient seen and examined at bedside no acute distress. No acute events overnight. Patient endorsesbilateral upper extremity and lower extremity pain along with back pain. Denies cough chest pain orshortness of breath. Physical Exam Vital Signs: BP: 111/44 Pulse: 79 Resp: 16 SpO2: 100 % O2 Device: None (Room air) Oxygen Delivery: 2 LPM Weight: 110 lbs 0 oz General Appearance: Appears comfortable. Respiratory: Without wheezes rhonchi or rales. CTA Cardiovascular: RRR, without murmurs GI: Soft, nontender, plus BS Skin: Without obvious bleeding, bruising or excoriations Medical Decision Making 59 MINUTES SPENT BY ME on the date of service doing chart review, history, exam, documentation & further activities per the note. Data PAST 24 HR DATA REVIEWED * Ana María Zuniga RN - 01/02/2025 10:38 PM CDT Shift [id number] 29 year old admitted for sickle cell pain in the backs and legs Changes this shift: Pt appears comfortable Neuro: Alert and orientated x 4. Cardiac: HR WNL, normotensive. Afebrile Respiratory: O2 sat > 90% on RA. Lung sounds Clear GI/: Continent B&B Diet: Regular diet, No N/V. Pain: Pain managed with scheduled Tylenol and PRN Dilaudid Skin: Intact LDA's: Left PIV SL/infusing C/D/I at 75 ml/hr Activity: Up ad chandler Plan: Call light within reach, able to make needs known, continue with plan of care. 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 She was admitted for the same to medicine on 12/29/2024 and discharged to A 12/31/2024 needing to leave for childcare Sickle cell pain crisis Back arm and leg pain Hx acute chest syndrome Follows w/ Dr. Samuel and has established pain plan. Presening w/ back arm and leg pain. Notes shehas window of childcare to be able to receive treatment for 2 days. No e/o acute chest. BL hgb ~8 - monitor for signs of acute chest - consult Heme - Acute Pain Crisis Treatment: (note that Toradol is listed as an allergy) ER/Acute Care/Infusion Clinic: Hydromorphone 2 mg IVP/SC Q1H X 3 doses LR 500 ml/hr x 2 hours (1 L total) Other: Zofran 8 mg IV Inpatient: Opioid: Hydromorphone 2 mg IV Q3H scheduled--titrate within 24-48 hours-- discussed with heme and ok for q2h prn for 1 day, titration ordered LR at maintenance rate x 1-2 days (75cc/h) Other Medications: Zofran, Oral Benadryl for anxiety [ and itching] Supportive Care: Docusate, Senna PRN - Home Pain Medications: Dilaudid 4 mg PO, Tylenol DO NOT TRANSFUSE WITHOUT DISCUSSING WITH HEMATOLOGY ATTENDING (available 16/11). Apical thrombus Prior + diphtheroids 1/2 blood cultures (12/29) Hx port-associated endocarditis - remote Blood cultures 12/31 NGTD. Unclear if prior + is contaminant but ISO apical thrombus on 12/30/24 limited TTE. - trend blood cultures - MANUEL STAT Transfusion associated iron overload Transaminitis, chronic On admission t-bili 2.0, AST 67, ALT 54- stable. Suspect combination of sequalea of iron overload. 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 De La Rosa, Patient, and Heme Team. Preston Nunes PA-C Hospitalist Service, 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 She was admitted for the same to medicine on 12/29/2024 and discharged to A 12/31/2024 needing to leave for childcare Patient notes that her pain continues to be generalized and is primarily in both arms, legs and herlow back and is consistent with her prior flares of sickle cell pain. She notes some mild discomfort in her chest and does not feel she has symptoms consistent with acute chest which she has had previously. She does not endorse any breathing issues. She does not notice any infectious concerns. She notes that she currently has a window of opportunity where her partner is available to take care of her 2-year-old daughter while she is receiving care. She notes that when her pain medicine was available every 3 hours she would have breakthrough pain and is requesting for a few doses to be every 2 hours. Denies N/V, F/C, sob, palpitations, dizziness, loss of appetite, abdominal pain, rashes, lumps, lesions, urinary complaints (including dysuria), changes to bowels, apparent bleeding, swelling, cough,sore throat or other complaints. Past Medical History Past Medical History: Diagnosis Date Acute chest syndrome, history of multiple episodes, intubated once Avascular necrosis of left femur, history of Cholelithiasis Continuous opioid dependence Endocarditis, history of 11/2022 culture-negative, had port-a-cath in [facility] Functional asplenia History of stroke related to [...] Other No No Sig: Take 1 tablet (2 [...] nasal spray Self, Other No No Sig: [place] 1 spray (4 mg) into [...] as needed for constipation. Facility-Administered Medications: None Review of Systems The 10 point Review of Systems is negative other than noted in the HPI or here. Social History I have reviewed this patient's social history and updated it with pertinent information if needed. Social History Tobacco Use Smoking status: Never Smokeless tobacco: Never Substance Use Topics Alcohol use: Not Currently Drug use: Never Lives home with spouse and 2-year-old daughter Allergies Allergies Allergen Reactions Banana Anaphylaxis, Hives and Swelling Other Reaction(s): Throat Swelling/Closing Blood Transfusion Related (Informational Only) Other (See Comments) Patient with a history of a hematologic condition and has a history of a clinically significant antibody against RBC antigens. A delay in compatible RBCs may occur. History of Anti-C and Nonspecificantibodies. Ketorolac Anaphylaxis and Hives Latex Hives and Rash Morphine Hives, Other (See Comments) and Unknown Seizure. Other opioids tolerated. Nuts Anaphylaxis and Hives Per patient, allergy to only cashew nut Tramadol Hives Cashew Nut Oil Hives Physical Exam Vital Signs: Temp: 98.1 ??F (36.7 ??C) Temp src: Oral BP: 106/54 Pulse: 83 Resp: 18 SpO2: 99 % O2 Device: None (Room air) Weight: 110 lbs 0 oz GENERAL: Alert and oriented x 3. NAD. Able to sit upright independently.. Cooperative. HEENT: Anicteric sclera. Pupils equal and round. NC. AT. CV: + Trace systolic murmur. RRR. S1, S2. RESPIRATORY: Effort normal on RA. Lungs CTAB with no wheezing, rales, rhonchi. GI: Abdomen soft. NABS. No tenderness, rebound, guarding. No lesions. NEUROLOGICAL: No focal deficits. Moves all extremities. EXTREMITIES: No peripheral edema. Intact bilateral pedal pulses. SKIN: No jaundice. No rashes on exposed skin. BACK: no CVA tenderness, no spinous tenderness Medical Decision Making 75 MINUTES SPENT BY ME on the date of service doing chart review, history, exam, documentation & further activities per the note. Data I have personally reviewed the following data over the past 24 hrs: 12.74 (H) \ 7.4 (L) / 387 136 102 11.0 / 94 3.9 21 (L) 0.70 \ ALT: 54 (H) AST: 67 (H) AP: 109 TBILI: 2.0 (H) ALB: 4.3 TOT PROTEIN: 8.0 LIPASE: N/A Procal: N/A CRP: 15.50 (H) Lactic Acid: N/A Ferritin: N/A % Retic: 11.71 (H) LDH: N/A Imaging results reviewed over the past 24 hrs: No results found for this or any previous visit (from the past 24 hours). documented in this encounter Consult Notes * Shari Knight BSW - 01/03/2025 3:05 PM CDTAssociated Order(s): CARE MANAGEMENT / SOCIAL WORK IP CONSULT Care Management Initial Consult General Information Assessment completed with: Patient, VM-chart review, (Lew) Type of CM/SW Visit: Initial Assessment Primary Care Provider verified and updated as needed: Yes Readmission within the last 30 days: previous discharge plan unsuccessful Reason for Consult: (elevated risk score) Advance Care Planning: Advance Care Planning Reviewed: no concerns identified Communication Assessment Patient's communication style: spoken language (Maltese or Bilingual) Hearing Difficulty or Deaf: no Wear Glasses or Blind: no Cognitive Cognitive/Neuro/Behavioral: WDL Living Environment: People in home: child(jese), dependent, significant other Current living Arrangements: house Able to return to prior arrangements: yes Family/Social Support: Care provided by: self Provides care for: child(jese) Marital Status: Lives with Significant Other Support system: Significant Other (Vineet) Description of Support System: Supportive, Involved Support Assessment: Adequate family and caregiver support, Adequate social supports Current Resources: Patient receiving home care services: No Community Resources: None Equipment currently used at home: none Supplies currently used at home: None Employment/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 No Lifestyle & Psychosocial Needs: Social Drivers of Health Food Insecurity: Low Risk (11/09/2024) Food Insecurity Within the past 12 months, did you worry that your food would run out before you got money to buy more?: No Within the past 12 months, did the food you bought just not last and you didn???t have money to getmore?: No Depression: Not at risk (04/11/2024) Received from [facility] PHQ-2 PHQ-2 TOTAL SCORE: 1 Housing Stability: Low Risk (11/09/2024) Housing Stability Do you have housing? : Yes Are you worried about losing your housing?: No Tobacco Use: Low Risk (01/02/2025) Patient History Smoking Tobacco Use: Never Smokeless Tobacco Use: Never Passive Exposure: Not on file Financial Resource Strain: Low Risk (11/09/2024) Financial Resource Strain Within the past 12 months, have you or your family members you live with been unable to get utilities (heat, electricity) when it was really needed?: No Alcohol Use: Not on file Transportation Needs: Low Risk (11/09/2024) Transportation Needs Within the past 12 months, has lack of transportation kept you from medical appointments, getting your medicines, non-medical meetings or appointments, work, or from getting things that you need?: No Physical Activity: Not on file Interpersonal Safety: Low Risk (12/30/2024) Interpersonal Safety [...] Social Connections: Socially Integrated (03/28/2024) Received from [facility] Social Connections Do you often feel lonely or isolated from those around you?: 0 Health Literacy: Not on file Functional Status: Prior to admission patient needed assistance: Dependent ADLs:: Independent Dependent IADLs:: Transportation Mental Health Status: Mental Health Status: No Current Concerns Chemical Dependency Status: Chemical Dependency Status: No Current Concerns Values/Beliefs: Spiritual, Cultural Beliefs, Yarsanism Practices, Values that affect care: no Discussed ???Partnership in Safe Discharge Planning??? document with patient/family: No Additional Information: Met with pt at bedside to complete initial assessment for elevated risk score. Pt reports no changes since their last admission. Confirmed IV abx with [facility] ended. No questions orconcerns at this time. Next Steps: No further care management intervention anticipated at this time. Please re- consult if further needs arise. Care management signing off. MELBA SantacruzW Float Parachute Packer [facility] Acute Care Management Searchable by name on Vocera: Shari Knight * Adrienne Carbajal RN - 01/03/2025 11:57 AM CDTAssociated Order(s): CONSULT FOR INPATIENT VASCULAR ACCESS CARE Summary: piv Consult received for Vascular Access Team. See LDA for details. For additional needs place Consultfor Inpatient Vascular Access Care [id number] order in [facility]. * Araceli Ramires MD - 01/03/2025 9:25 AM CDTAssociated Order(s): CLASSICAL HEMATOLOGY ADULT IP CONSULT Hematology Consult Note History Lew Hernández is a 29-year old with sickle cell disease (HbSS), recent MSSA bacteremia, and several recent admissions for vaso-occlusive pain who presents with pain. Hematology was asked to consult during this current admission. Her pain is located in her back primarily, from what she discussed with me today. She denies any difficulty breathing or any other new symptoms of concern. Laboratory Data I personally reviewed and interpreted the pertinent results as follows: --Hemoglobin is 6.5 which is about 1g below baseline --WBC is slightly elevated at 12.4 (chronic) --Platelets are normal at 355 --Creatinine is 0.62 and renal function (by eGFR) is normal --Total bilirubin is 2.0 which is within her general baseline range --Reticulocyte count is 11.71% reflecting hemolysis --CRP significantly elevated at 15.5 --MANUEL shows chronic/organized thrombus attached to the posterior wall of the right atrium likely related to endothelial injury from indwelling catheter (this has been seen on prior imaging as well) Impression Based on the available history, my independent interpretation of the laboratory test results and discussion with the patient, I believe that she is experiencing a sickle cell VOC which is relatively uncomplicated with no current evidence to support acute chest syndrome or other serious complications. 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 Recommendations: Acute Vaso-Occlusive Pain Episode --Continue current regimen of Dilaudid 2mg (OK to do 2mg every 2 hours for today and if she remainshospitalized past this evening would go back to every 3 hours) --Aggressive bowel regimen --Consider topicals (lidocaine patch, Voltaren gel, warm packs) if helpful --Please avoid IV benadryl Acute Chest Syndrome (ACS) Prevention --Monitor oxygenation and respiratory rate carefully --Encourage incentive spirometry and ambulation --Monitor for fluid overload --Please page Hematology if patient develops fever, acute shortness of breath, or other new symptoms concerning for acute chest syndrome General Sickle Cell Management --Daily CBC with differential, bilirubin, retic count for now --Reasonable to transfuse 1U PRBC today given that her hemoglobin is about 1g below baseline and she plans to leave hospital either today or tomorrow --Please discuss further/future transfusion with Hematology first if primary team is considering this --Continue folic acid and Hydrea Thromboses --She is already on apixaban for history of DVT and PE --She has known right atrial thrombus seen on prior imaging and confirmed on MANUEL yesterday which isanother indication for anticoagulation --Continue apixaban 5mg twice daily We will continue to follow with you. Overall, I spent 80 minutes today (DOS) [id number] and/or coordinating care as documented above and specifically listed as below: --Reviewing documentation related to patient's history and this current admission available in [id number] --Review and clinical interpretation of pertinent laboratory test results and cardiology reports from this admission (and comparison to past cardiology reports) --Discussion with the patient --Discussion with members of the patient's primary care team --Documentation in the electronic health record Araceli Ramires MD Date of Service: 01/03/2025 * Katja Sepulveda - 01/02/2025 8:50 AM CDTAssociated Order(s): NURSING TO CONSULT FOR VASCULAR ACCESS CARE IP CONSULT; CONSULT FOR INPATIENT VASCULAR ACCESS CARE; CONSULT FOR INPATIENT VASCULAR ACCESS CARE; CONSULT FOR INPATIENT VASCULAR ACCESS CARE; CONSULT FOR INPATIENT VASCULAR ACCESS CARE Summary: piv Consult received for Vascular Access Team. See LDA for details. For additional needs place Consultfor Inpatient Vascular Access Care [id number] order in [facility]. 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 She arrives today to the emergency room due to concern of persistent pain which she attributes to sickle cell disease. Patient of note was hospitalized several days ago but discharged early. She was reevaluated last evening with the following of her care plan. No obvious recurrence of infection noted. She now returns to the emergency department requesting hospitalization. The patient reports no new fevers. She denies new chills, shortness of breath or chest discomfort. No abdominal discomfort or GI loss such as nausea, vomiting, diarrhea. Patient reports she has persistent ongoing generalized pain despite oral Dilaudid at home. Patient reports no other sick contacts or new change in medications. Past Medical History Past Medical History: Diagnosis [...] all other systems negative. Physical Exam BP: 106/54 Pulse: 83 Temp: 98.1 ??F (36.7 ??C) Resp: 18 Height: 154.9 cm (5' 1) Weight: 49.9 kg (110 lb) SpO2: 99 % Physical Exam Vitals and nursing note reviewed. Constitutional: General: She is not in acute distress. Appearance: Normal appearance. She is not ill-appearing, toxic-appearing or diaphoretic. HENT: Head: Normocephalic and atraumatic. Right Ear: External ear normal. Left Ear: External ear normal. Nose: Nose normal. No congestion. Mouth/Throat: Mouth: Mucous membranes are moist. Pharynx: Oropharynx is clear. No oropharyngeal exudate. Eyes: Extraocular Movements: Extraocular movements intact. Conjunctiva/sclera: Conjunctivae normal. Pupils: Pupils are equal, round, and reactive to light. Cardiovascular: Rate and Rhythm: Normal rate. Pulses: Normal pulses. Heart sounds: Normal heart sounds. No murmur heard. No friction rub. Pulmonary: Effort: Pulmonary effort is normal. No respiratory distress. Breath sounds: No stridor. No wheezing, rhonchi or rales. Abdominal: General: Abdomen is flat. There is no distension. Tenderness: There is no abdominal tenderness. There is no guarding or rebound. Musculoskeletal: General: Tenderness present. No deformity or signs of injury. Normal range of motion. Cervical back: Normal range of motion. Skin: General: Skin is warm. Capillary Refill: Capillary refill takes less than 2 seconds. Coloration: Skin is not pale. Findings: No bruising or erythema. Neurological: General: No focal deficit present. Mental Status: She is alert. Cranial Nerves: No cranial nerve deficit. Motor: No weakness. Psychiatric: Mood and Affect: Mood normal. Behavior: Behavior normal. ED Course Procedures Recent Results (from the past 24 hours) CBC with Platelets and Differential (Limited Occurrences) Narrative The following orders were created for panel order CBC with Platelets and Differential (Limited Occurrences). Procedure Abnormality Status --------- ------ CBC with platelets and ...[[id number]] Abnormal Final result RBC and Platelet Morpho...[[id number]] Abnormal Final result Please view results for these tests on the individual orders. Comprehensive Metabolic Panel (Limited Occurrences) Result Value [...] Automated Count Confirmed. Platelet morphology is normal. [place] Bodies Present (A) None Seen Polychromasia Slight (A) None Seen Sickle Cells Slight (A) None Seen Target Cells Slight (A) None Seen CBC with Platelets and Differential (Limited Occurrences) Narrative The following orders were created for panel order CBC with Platelets and Differential (Limited Occurrences). Procedure Abnormality Status --------- ------ CBC with platelets and ...[[id number]] Abnormal Final result RBC and Platelet Morpho...[[id number]] Abnormal Final result Please view results for these tests on the individual orders. Comprehensive Metabolic Panel (Limited Occurrences) Result Value Ref Range Sodium 136 135 - 145 mmol/L Potassium 3.9 3.4 - 5.3 mmol/L Carbon Dioxide (CO2) 21 (L) 22 - 29 mmol/L Anion Gap 13 7 - 15 mmol/L Urea Nitrogen 11.0 6.0 - 20.0 mg/dL Creatinine 0.70 0.51 - 0.95 mg/dL GFR Estimate >90 >60 mL/min/1.73m2 Calcium 9.2 8.8 - 10.4 mg/dL Chloride 102 98 - 107 mmol/L Glucose 94 70 - 99 mg/dL Alkaline Phosphatase 109 40 - 150 U/L AST 67 (H) 0 - 45 U/L ALT 54 (H) 0 - 50 U/L Protein Total 8.0 6.4 - 8.3 g/dL Albumin 4.3 3.5 - 5.2 g/dL Bilirubin Total 2.0 (H) <=1.2 mg/dL Reticulocyte count Result Value Ref Range % Reticulocyte 11.71 (H) 0.50 - 2.00 % Absolute Reticulocyte 0.2576 (H) 0.0250 - 0.0950 10e6/uL CRP inflammation Result Value Ref Range CRP Inflammation 15.50 (H) <5.00 mg/L CBC with platelets and differential Result Value Ref Range WBC Count 12.74 (H) 4.00 - 11.00 10e3/uL RBC Count 2.20 (L) 3.80 - 5.20 10e6/uL Hemoglobin 7.4 (L) 11.7 - 15.7 g/dL Hematocrit 21.4 (L) 35.0 - 47.0 % MCV 97.3 78.0 - 100.0 fL MCH 33.6 (H) 26.5 - 33.0 pg MCHC 34.6 31.5 - 36.5 g/dL RDW 19.9 (H) 10.0 - 15.0 % Platelet Count 387 150 - 450 10e3/uL % Neutrophils 55.8 % % Lymphocytes 27.5 % % Monocytes 14.3 % % Eosinophils 0.8 % % Basophils 0.9 % % Immature Granulocytes 0.7 % NRBCs per 100 WBC 2.1 (H) <1.0 /100 Absolute Neutrophils 7.12 1.60 - 8.30 10e3/uL Absolute Lymphocytes 3.50 0.80 - 5.30 10e3/uL Absolute Monocytes 1.82 (H) 0.00 - 1.30 10e3/uL Absolute Eosinophils 0.10 0.00 - 0.70 10e3/uL Absolute Basophils 0.11 0.00 - 0.20 10e3/uL Absolute Immature Granulocytes 0.09 <=0.40 10e3/uL Absolute NRBCs 0.27 10e3/uL RBC and Platelet Morphology Result Value Ref Range RBC Morphology Confirmed RBC Indices Platelet Assessment Automated Count Confirmed. Platelet morphology is normal. Automated Count Confirmed. Platelet morphology is normal. Polychromasia Slight (A) None Seen Sickle Cells Slight (A) None Seen Target Cells Slight (A) None Seen Medications HYDROmorphone (DILAUDID) injection 1 mg (has no administration in time range) hydromorphone (DILAUDID) injection 2 mg (2 mg Intravenous $Given 01/02/25 0854) lactated ringers BOLUS 1,000 mL (0 mLs Intravenous Stopped 01/02/25 0955) hydromorphone (DILAUDID) injection 2 mg (2 mg Intravenous $Given 01/02/25 1017) hydromorphone (DILAUDID) injection 2 mg (2 mg Intravenous $Given 01/02/25 1155) Critical care was not performed. Medical Decision Making The patient's presentation was of moderate complexity (an acute complicated injury). The patient's evaluation involved: review of external note(s) from 3+ sources (see separate area of note for details) review of 3+ test result(s) ordered prior to this encounter (see separate area of note for details) ordering and/or review of 3+ test(s) in this encounter (see separate area of note for details) The patient's management necessitated high risk (a decision regarding hospitalization). 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 She arrives today to the emergency room due to concern of persistent pain which she attributes to sickle cell disease. Patient of note was hospitalized several days ago but discharged early. She was reevaluated last evening with the following of her care plan. No obvious recurrence of infection noted. She now returns to the emergency department requesting hospitalization. Upon arrival patient ovular. She is presently afebrile and hemodynamically stable. She is seated upright in bed and appears nontoxic. GCS 15. She has no visible signs of neurovascular deficit. Low suspicion for intracranial pathology warranting imaging of the head. She has no sign of obvious increased work of breathing. She reports no chest pain. Low suspicion for acute chest syndrome. I did review laboratory studies obtained approximately 10 hours ago overnight with no significant deviation from baseline. Low suspicion for new anemia requiring transfusion. She reports ongoing generalized pain which she associated with sickle cell anemia. I did discuss goals of hospital versus outpatient care. We will follow her care plan in the emergency department discuss case with hematology. She states recent hospitalization recommendations were for her to stay in the hospital for upper endoscopy. At this time without active epigastric or abdominal pain low suspicion this is required emergently but will continue to follow and explore need for this. Laboratory studies including CRP, reticulocyte, CMP, and CBC reviewed and near baseline without sign of acute deviation from norm. Patient monitored for another 5 hours in emergency department following care plan. Unfortunate patient continues to have ongoing complaints of generalized body pain. Externally, the patient is speaking in full sentences SpO2 in the upper 90s on room air. She appears in no acute distress at this time sitting upright in a bed watching TV on her phone. Case discussed with hematology with recommendation for acute hospitalization under internal medicine. At this time Ibelieve she is appropriate for floor level of care. I have reviewed the nursing notes. I have reviewed the findings, diagnosis, plan and need for follow up with the patient. New Prescriptions No medications on file Final diagnoses: Sickle cell pain crisis (H) JONATHAN FITCH MD 01/02/2025 [facility] EMERGENCY DEPARTMENT Jonathan Fitch MD 01/02/25 [id number] * Yessenia Go RN - 01/02/2025 8:23 AM CDT Bed: [facility] Expected date: Expected time: Means of arrival: Comments: 1 * Carmen Branch RN - 01/02/2025 8:21 AM CDT Pt presents with sickle cell pain requesting to be admitted. States she was admitted 3 days ago buthad to leave AMA to care for her child. Triage Assessment (Adult) Row Name 01/02/25 0820 Triage Assessment Airway WDL WDL Respiratory WDL Respiratory WDL WDL Skin Circulation/Temperature WDL Skin Circulation/Temperature WDL WDL Cardiac WDL Cardiac WDL WDL Peripheral/Neurovascular WDL Peripheral Neurovascular WDL WDL Cognitive/Neuro/Behavioral WDL Cognitive/Neuro/Behavioral WDL WDL [place] Coma Scale Best Eye Response 4-->(E4) spontaneous Best Motor Response 6-->(M6) obeys commands Best Verbal Response 5-->(V5) oriented Lester Coma Scale Score 15 documented in this encounter Miscellaneous Notes * Plan of Care - Jaja Patel RN - 01/04/2025 11:38 AM CDT Problem: Adult Inpatient Plan of Care Goal: Plan of Care Review Description: The Plan of Care Review/Shift note should be completed every shift. The Outcome Evaluation is a brief statement about your assessment that the patient is improving, declining, or no change. This information will be displayed automatically on your shift note. Outcome: Adequate for Care Transition Flowsheets (Taken 01/04/2025 1137) Plan of Care Reviewed With: patient Overall Patient Progress: improving Goal: Patient-Specific Goal (Individualized) Description: You can add care plan individualizations to a care plan. Examples of Individualizationmight be: Parent requests to be called daily at 9am for status, I have a hard time hearing out of my right ear, or Do not touch me to wake me up as it startles me. Outcome: Adequate for Care Transition Goal: Absence of Hospital-Acquired Illness or Injury Outcome: Adequate for Care Transition Intervention: Identify and Manage Fall Risk Recent Flowsheet Documentation Taken 01/04/2025899 by Jaja Patel RN Safety Promotion/Fall Prevention: activity supervised Intervention: Prevent Skin Injury Recent Flowsheet Documentation Taken 01/04/2025899 by Jaja Patel RN Body Position: position changed independently Intervention: Prevent Infection Recent Flowsheet Documentation Taken 01/04/2025899 by Jaja Patel RN Infection Prevention: rest/sleep promoted single patient room provided Goal: Optimal Comfort and Wellbeing Outcome: Adequate for Care Transition Goal: Readiness for Transition of Care Outcome: Adequate for Care Transition Problem: Pain Acute Goal: Optimal Pain Control and Function Outcome: Adequate for Care Transition Intervention: Optimize Psychosocial Wellbeing Recent Flowsheet Documentation Taken 01/04/2025899 by Jaja Patel RN Diversional Activities: smartphone Intervention: Prevent or Manage Pain Recent Flowsheet Documentation Taken 01/04/2025899 by Jaja Patel RN Medication Review/Management: medications reviewed Goal Outcome Evaluation: Plan of Care Reviewed With: patient Overall Patient Progress: improvingOverall Patient Progress: improving * Plan of Care - Sagrario Lara RN - 01/04/2025 1:07 AM CDT Goal Outcome Evaluation: Plan of Care Reviewed With: patient Overall Patient Progress: improving Outcome Evaluation: Neuro/CMS: A&Ox4. Resp/Cardiac: Denies SOB, chest pain, dizziness. GI/: Continent of bowel and bladder. Last BM 01/03. Skin: Intact. Activity: Independent. Pain: 7/10 pain in bilateral legs, arms, and back. Heat packs used. LDA: Right and left PIV saline locked. Diet: Regular. Other: Received 1u blood yesterday. Plan: Continue with POC. * Plan of Care - Shari Knight BSW - 01/03/2025 3:05 PM CDT Problem: Adult Inpatient Plan of Care Goal: Readiness for Transition of Care Recent Flowsheet Documentation Taken 01/03/2025 1400 by Shari Knight BSW Transportation Anticipated: family or friend will provide Concerns to be Addressed: all concerns addressed in this encounter no discharge needs identified Intervention: Mutually Develop Transition Plan Recent Flowsheet Documentation Taken 01/03/2025 1400 by Shari Knight BSW Readmission Within the Last 30 Days: previous discharge plan unsuccessful Transportation Anticipated: family or friend will provide Transportation Concerns: none Concerns to be Addressed: all concerns addressed in this encounter no discharge needs identified Patient/Family Anticipated Services at Transition: none Patient/Family Anticipates Transition to: home with family Offered/Gave Vendor List: no Equipment Currently Used at Home: none * Plan of Care - Zuly Escamilla RN - 01/03/2025 5:47 AM CDT Goal Outcome Evaluation: Plan of Care Reviewed With: patient Overall Patient Progress: improvingOverall Patient Progress: improving Outcome Evaluation: Pt remains A/Ox4, reports pain 7/10 in back and b/l legs, managed with PRN medications. Will call if she has ongoing pain, very cooperative with cares. Reports that she slept mostof the day yesterday so she is unable to rest tonight. MANUEL completed yesterday. Hgb 6.5 this AM. VS: BP 111/44 (BP Location: Right arm) Pulse 79 Temp 98.1 ??F (36.7 ??C) (Oral) Resp 16 Ht 1.549 m (5' 1) Wt 49.9 kg (110 lb) LMP 12/19/2024 (Approximate) SpO2 100% BMI 20.78 kg/m?? Pt A/O X 4. Afebrile. VSS. Lungs- clear bilaterally with both anterior. Denies nausea, shortness of breath, and chest pain. Output: Bowels- audible in all four quadrants. Voids spontaneously without difficulty in the bathroom. Activity: Pt up independently. Skin: Visible skin intact. Pain: Has pain in the b/l LE and lower back and given dilaudid and tylenol. Tolerating well. CMS: CMS and Neuro's are intact. Denies numbness and tingling in all extremities. Dressing: N/A Diet: Pt is on a regular diet and appetite was good this shift. LDA: L PIV, SL Equipment: Bilateral heels are elevated off the bed. Plan: Pt is able to make needs known and the call light is within the pt's reach. Continue to monitor. Additional Info: * Plan of Care - Carmen Powers RN - 01/02/2025 6:38 PM CDT Goal Outcome Evaluation: IP Nursing note [phone] Plan of Care Reviewed With: patient Overall Patient Progress: no changeOverall Patient Progress: no change Patient arrived to unit at 1430, vss on arrival. BP 94/54 (BP Location: Right arm) Pulse 87 Temp 98.1 ??F (36.7 ??C) (Oral) Resp 18 Ht 1.549 m (5' 1) Wt 49.9 kg (110 lb) LMP 12/19/2024 (Approximate) SpO2 95% BMI 20.78 kg/m?? Patient A&Ox4, vss on r/a. Tolerating a regular diet and oral meds. C/o pain to all extremities, the same as before 11/02. Denies n/v. Denies all complaints other than pain. 2mg IV Dilaudid given 1x this shift. Patient agreeable to call for cares, and calls appropriately. Transport ordered to [facility] Room- 814. Scheduled from [phone]. Report called to SOFIA Montez. Transport picked up patient at 1840, accepting unit notified. * Sedation Documentation - Thao, Cookie K, RN - 01/02/2025 2:24 PM CDT Pt arrived for MANUEL. Procedure was explained to the pt and the consent was signed. Pt's throat was numbed at 1355. Pt is to remain NPO until 4:00pm. Pt was given Fentanyl 75 mcg IV and Versed 3 mg IV for sedation. Pt tolerated the procedure without any adverse effects. Pt states that she has generalized pain rating 5/10. Report called to pt's nurse in the ED. Pt transported back to the ED on monitor with RN. * Medication Scribe - Admission Medication History - Jannette Mayberry - 01/02/2025 2:16 PM CDT Medication Scribe Admission Medication History Admission medication history is complete. The information provided in this note is only as accurateas the sources available at the time of the update. Information Source(s): Hospital records via in-person Pertinent Information: Patient medication hx was completed by Medication Scribe on 12/30/2024. No changes made to medication list from most recent admission. 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 Taking diphenhydrAMINE (BENADRYL) 25 MG tablet Take 1-2 tablets by mouth every 6 hours as needed for itching. Taking As Needed FLUoxetine (PROZAC) 40 MG capsule Take 1 capsule (40 mg) by mouth daily. Taking folic acid (FOLVITE) 1 MG tablet Take 1 tablet (1 mg) by mouth daily. Taking HYDROmorphone (DILAUDID) 2 MG tablet Take 1 tablet (2 mg) by mouth every 6 hours as needed for severe pain or breakthrough pain. 1 Week supply. No early refills Taking As Needed hydroxyurea (HYDREA) 500 MG capsule Take 2 capsules (1,000 mg) by mouth 2 times daily Taking multivitamin, therapeutic (THERA-VIT) TABS tablet Take 1 tablet by mouth daily. Taking ondansetron (ZOFRAN ODT) 4 MG ODT tab Take 1 tablet (4 mg) by mouth every 6 hours as needed for nausea or vomiting. Taking As Needed polyethylene glycol (MIRALAX) 17 GM/Dose powder Take 17 g by mouth 2 times daily as needed for constipation. Taking As Needed senna-docusate (SENOKOT-S/PERICOLACE) 8.6-50 MG tablet Take 2 tablets by mouth 2 times daily as needed for constipation. Taking As Needed documented in this encounter Plan of Treatment Upcoming Encounters Date Type Department Care Team (Late st Contact Info) Description 02/15/2025 10:30 AM CDT Lab [facility] [address] [phone] Olinda Vora APRN [address] [address] 02/15/2025 11:00 AM CDT Oncology Visit [address] [phone] Olinda Vora APRN [address] [address] 04/09/2025 3:00 PM INS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 Lab [address] [phone] Case Samuel MD [address] [place] [address], [address] [place], [place] [id number] 04/09/2025 3:30 PM INS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 Oncology Visit [facility] [address] [phone] Case Samuel MD [address] [facility] [address], [address] [place] [address] documented as of this encounter Goals Goal [...] Date/Time Associated Diagnosis Comments BLOOD CULTURE STAT 01/04/2025 10:53 AM CDT BLOOD CULTURE STAT 01/04/2025 10:50 AM CDT CBC WITH PLATELETS AND DIFFERENTIAL Routine 01/04/2025 8:46 AM CDT CBC WITH PLATELETS AND DIFFERENTIAL (LIMITED OCCURRENCES) Routine 01/04/2025 8:46 AM CDT RETICULOCYTE COUNT Routine 01/04/2025 8: 46 AM CDT TRANSFUSE RED BLOOD CELLS (UNIT) Routine 01/03/2025 1:23 PM CDT TYPE AND SCREEN, ADULT STAT 10:23 AM CDT ABO/RH TYPE AND SCREEN STAT 10:23 AM CDT PREPARE RED BLOOD CELLS (UNIT) Routine 01/03/2025 9:31 AM CDT BLOOD CULTURE ID PANEL, PCR Routine 01/03/2025 6:29 AM CDT BASIC METABOLIC PANEL (LIMITED OCCURRENCES) Routine 01/03/2025 6:29 AM CDT BLOOD CULTURE STAT 01/03/2025 6:29 AM CDT CBC WITH PLATELETS Routine 01/03/2025 6: 29 AM CDT ROUTINE UA WITH MICROSCOPIC REFLEX TO CULTURE STAT 01/02/2025 5:13 PM CDT BLOOD CULTURE STAT 01/02/2025 4:38 PM CDT ECHO MANUEL STAT 01/02/2025 2:41 PM CDT RBC AND PLATELET MORPHOLOGY STAT 01/02/2025 8:48 AM CDT CBC WITH PLATELETS AND DIFFERENTIAL STAT 01/02/2025 8:48 AM CDT CBC WITH PLATELETS AND DIFFERENTIAL (LIMITED OCCURRENCES) STAT 01/02/2025 8:48 AM CDT COMPREHENSIVE METABOLIC PANEL (LIMITED OCCURRENCES) STAT 01/02/2025 8:48 AM CDT RETICULOCYTE COUNT STAT 01/02/2025 8: 48 AM CDT CRP INFLAMMATION STAT 01/02/2025 8:48 AM CDT documented in this encounter Results * Blood Culture Peripheral blood (BC) Hand, Left (01/04/2025 10:53 AM CDT) Culture No Growth 01/09/2025 12:31 PM CDT [facility] Peripheral blood (BC) STRUCTURE OF LEFT HAND / Unknown Venipuncture / Unknown 01/04/2025 10:53 AM CDT 01/04/2025 11:04 AM CDT Kaci Olsen MD LAB - MICRO GENERAL ORDERABL ES Final Result [facility] Inf. Diseases Diag. Lab [address] [facility], Room [address] * Blood Culture Peripheral blood (BC) Hand, Right (01/04/2025 10:50 AM CDT) Pathologist [facility] Culture No Growth 01/09/2025 12:31 PM CDT [facility] Peripheral blood (BC) STRUCTURE OF RIGHT HAND / Unknown Venipuncture / Unknown 01/04/2025 10:50 AM CDT 01/04/2025 11:03 AM CDT Kaci Olsen MD LAB - MICRO GENERAL ORDERABL ES Final Result Performing Organization Address City/[facility] Co de Phone Number [facility] Inf. Diseases Diag. Lab [address] [facility], [address] * (ABNORMAL) CBC with platelets and differential (01/04/2025 8:46 AM CDT) WBC Count 12.38(H) 4.00 - 11.00 10e3/uL 01/04/2025 9:20 AM CDT [facility] RBC Count 2.83(L) 3.80 - 5.20 10e6/uL 01/04/2025 9:20 AM CDT [facility] Hemoglobin 9.7(L) 11.7 - 15.7 g/dL 01/04/2025 9:20 AM CDT [facility] Hematocrit 27.1(L) 35.0 - 47.0 % 01/04/2025 9:20 AM CDT [facility] MCV 95.8 78.0 - 100.0 fL 01/04/2025 9:20 AM CDT [facility] MCH 34.3(H) 26.5 - 33.0 pg 01/04/2025 9:20 AM CDT [facility] MCHC 35.8 31.5 - 36.5 g/dL 01/04/2025 9:20 AM CDT [facility] RDW 18.3(H) 10.0 - 15.0 % 01/04/2025 9:20 AM CDT [facility] Platelet Count 363 150 - 450 10e3/uL 01/04/2025 9:20 AM CDT [facility] % Neutrophils 61.9 % 01/04/2025 9:20 AM CDT [facility] % Lymphocytes 26.0 % 01/04/2025 9:20 AM CDT [facility] % Monocytes 9.0 % 01/04/2025 9:20 AM CDT [facility] % Eosinophils 1.9 % 01/04/2025 9:20 AM CDT [facility] % Basophils 0.6 % 01/04/2025 9:20 AM CDT [facility] % Immature Granulocytes 0.6 % 01/04/2025 9:20 AM CDT [facility] NRBCs per 100 WBC 3.6(H) <1.0 /100 01/04/2025 9:20 AM CDT [facility] Absolute Neutrophils 7.67 1.60 - 8.30 10e3/uL 01/04/2025 9:20 AM CDT [facility] Absolute Lymphocytes 3.22 0.80 - 5.30 10e3/uL 01/04/2025 9:20 AM CDT [facility] Absolute Monocytes 1.11 0.00 - 1.30 10e3/uL 01/04/2025 9:20 AM CDT [facility] Absolute Eosinophils 0.23 0.00 - 0.70 10e3/uL 01/04/2025 9:20 AM CDT [facility] Absolute Basophils 0.08 0.00 - 0.20 10e3/uL 01/04/2025 9:20 AM CDT [facility] Absolute Immature Granulocytes 0.07 <=0.40 10e3/uL 01/04/2025 9:20 AM CDT [facility] Absolute NRBCs 0.45 10e3/uL 01/04/2025 9:20 AM CDT [facility] Blood STRUCTURE OF RIGHT HAND / Unknown Venipuncture / Unknown 01/04/2025 8:46 AM CDT 01/04/2025 9:03 AM CDT us Kaci Olsen MD LAB - BLOOD ORDERABLES Final Result [facility] [address] [facility], Room [place] [id number] * (ABNORMAL) Reticulocyte count (01/04/2025 8:46 AM CDT) % Reticulocyte 14.63(H) 0.50 - 2.00 % 01/04/2025 9:09 AM CDT [facility] Absolute Reticulocyte 0.4067(H) 0.0250 - 0.0950 10e6/uL 01/04/2025 9:09 AM CDT [facility] Blood STRUCTURE OF RIGHT HAND / Unknown Venipuncture / Unknown 01/04/2025 8:46 AM CDT 01/04/2025 9:03 AM CDT us Kaci Olsen MD LAB - BLOOD ORDERABLES Final Result [facility] Acute Care Lab [facility], Room [address] * Transfuse red blood cells (unit) (01/03/2025 4:45 PM CDT) Result Caleb Olsen MD BLOOD TRANSFUSION ORDERABLES Final Result * Transfuse red blood cells (unit), 1 Units (01/03/2025 4:45 PM CDT) us Kaci Olsen MD BLOOD TRANSFUSION ORDERABLES Final Result * Adult Type and Screen (01/03/2025 10:23 AM CDT) Pathologist [facility] ABO/RH(D) A POS 01/03/2025 9:34 AM CDT UR BLOOD BANK Antibody Screen Negative Negative 01/03/2025 9:34 AM CDT UR BLOOD BANK Comment:Current antibody scr een is negative. Patient has a history of antibody(ies). A delay in compatible red blood cells may occur. SPECIMEN EXPIRATION DATE 01/06/2025 11:59:00 PM CDT 01/03/2025 9:34 AM CDT UR BLOOD BANK Blood BLOOD SPECIMEN / Unknown Venipuncture / Unknown 01/03/2025 10:23 AM CDT 01/03/2025 10:33 AM CDT us Kaci Olsen MD LAB - BLOOD BANK TEST ORDER Final Result UR BLOOD BANK [facility] Blood Components Lab [address] [place] [address], [address] * Prepare red blood cells (unit) (01/03/2025 9:31 AM CDT) [facility] Blood Component Type Red Blood Cells UR BLOOD BANK Product Code [id number] UR BLOO D BANK Unit Status Transfused UR BLOO D BANK Unit Number [id number] UR B LOOD BANK CROSSMATCH COMPATIBLE UR BLOOD BANK CODING SYSTEM [id number] UR BLO OD BANK ISSUE DATE AND TIME 01/03/2025 12:33:00 PM CDT UR BLOOD BANK UNIT ABO/RH A+ UR BLOOD BANK UNIT TYPE ISBT 6200 UR BL OOD BANK 01/03/2025 9:31 AM CDT us Kaci Olsen MD BLOOD BANK PRODUCT ORDERABLE S Final Result UR BLOOD BANK [facility] Blood Components Lab [address] [place] [address], [address] * (ABNORMAL) Blood Culture ID Panel, PCR (01/03/2025 6:29 AM CDT) [facility] Enterococcus faecalis Not Detected Not Detected 01/04/2025 11:04 AM CDT [facility] Enterococcus faecium Not Detected Not Detected 01/04/2025 11:04 AM CDT [facility] Listeria monocytogenes Not Detected Not Detected 01/04/2025 11:04 AM CDT [facility] Staphylococcus aureus Not Detected Not Detected 01/04/2025 11:04 AM CDT [facility] Staphylococcus epidermidis Detected(A) Not Detected 01/04/2025 11:04 AM CDT [facility] Comment:Staphylococcus epide rmidis detected by everyArt BCID2 assay. Final identification and antimicrobial susceptibility testing will be verified by standard methods. Staphylococcus lugdunensis Not Detected Not Detected 01/04/2025 11:04 AM CDT [facility] mecA/C Not Detected Not Detected, NA 01/04/2025 11:04 AM CDT [facility] Streptococcus species Not Detected Not Detected 01/04/2025 11:04 AM CDT [facility] Streptococcus agalactiae Not Detected Not Detected 01/04/2025 11:04 AM CDT [facility] Streptococcus pneumoniae Not Detected Not Detected 01/04/2025 11:04 AM CDT [facility] Streptococcus pyogenes Not Detected Not Detected 01/04/2025 11:04 AM CDT [facility] A. baumannii complex Not Detected Not Detected 01/04/2025 11:04 AM CDT [facility] Bacteroides fragilis Not Detected Not Detected 01/04/2025 11:04 AM CDT [facility] Enterobacterales Not Detected Not Detected 01/04/2025 11:04 AM CDT [facility] Enterobacter cloacae complex Not Detected Not Detected 01/04/2025 11:04 AM CDT [facility] Escherichia coli Not Detected Not Detected 01/04/2025 11:04 AM CDT [facility] Klebsiella aerogenes Not Detected Not Detected 01/04/2025 11:04 AM CDT [facility] Klebsiella oxytoca Not Detected Not Detected 01/04/2025 11:04 AM CDT [facility] Klebsiella pneumoniae group Not Detected Not Detected 01/04/2025 11:04 AM CDT [facility] Proteus species Not Detected Not Detected 01/04/2025 11:04 AM CDT [facility] Salmonella species Not Detected Not Detected 01/04/2025 11:04 AM CDT [facility] Serratia marcescens Not Detected Not Detected 01/04/2025 11:04 AM CDT [facility] Haemophilus influenzae Not Detected Not Detected 01/04/2025 11:04 AM CDT [facility] Neisseria meningitidis Not Detected Not Detected 01/04/2025 11:04 AM CDT [facility] Pseudomonas aeruginosa Not Detected Not Detected 01/04/2025 11:04 AM CDT [facility] Stenotrophomonas maltophilia Not Detected Not Detected 01/04/2025 11:04 AM CDT [facility] Gina albicans Not Detected Not Detected 01/04/2025 11:04 AM CDT [facility] Gina auris Not Detected Not Detected 01/04/2025 11:04 AM CDT [facility] Gina glabrata Not Detected Not Detected 01/04/2025 11:04 AM CDT [facility] Gina krusei Not Detected Not Detected 01/04/2025 11:04 AM CDT [facility] Gina parapsilosis Not Detected Not Detected 01/04/2025 11:04 AM CDT [facility] Gina tropicalis Not Detected Not Detected 01/04/2025 11:04 AM CDT [facility] Cryptococcus neoformans/gattii Not Detected Not Detected 01/04/2025 11:04 AM CDT [facility] Peripheral blood (BC) STRUCTURE OF RIGHT WRIST REGION / Unknown Venipuncture / Unknown 01/03/2025 6:29 AM CDT 01/03/2025 6:45 AM CDT Narrative [facility] - 01/04/2025 11:04 AM CDT Assay performed using the FDA-cleared [...] by the Infectious Diseases Diagnostic Laboratory at [facility]. This laboratory is certified under the Clinical Laboratory Improvement Amendments of 1988 (CLIA-88) as qualified to perform high complexity clinical laboratory testing. us Owen Seaman MD LAB - MICRO GENERAL ORD ERABLES Final Result [facility] Inf. Diseases Diag. Lab [address] [facility], [address] [place] [phone], [place] * (ABNORMAL) Blood Culture Peripheral blood (BC) Wrist, Right (01/03/2025 6:29 AM CDT) Culture Positive on the 1st day of incubation(A) 01/06/2025 7:50 AM CDT [facility] Culture Staphylococcus epidermidis(AA) 01/06/2025 7:50 AM CDT [facility] Comment: 1 of 2 bottles The recovery of this organism from a single blood culture bottle most likely represents contamination. If susceptibility testing is needed, please refer to the antibiogram or contact IDDL. If contamination is suspected, it is important to repeat two sets of blood cultures from two different sites. Peripheral blood (BC) STRUCTURE OF RIGHT WRIST REGION / Unknown Venipuncture / Unknown 01/03/2025 6:29 AM CDT 01/03/2025 6:45 AM CDT us Owen Seaman MD LAB - MICRO GENERAL ORD ERABLES Final Result [facility] Inf. Diseases Diag. Lab [address] [facility], [address] [place] [phone], [facility] * (ABNORMAL) CBC with platelets (01/03/2025 6:29 AM CDT) WBC Count 12.40(H) 4.00 - 11.00 10e3/uL 01/03/2025 6:56 AM CDT [facility] RBC Count 1.91(L) 3.80 - 5.20 10e6/uL 01/03/2025 6:56 AM CDT [facility] Hemoglobin 6.5(LL) 11.7 - 15.7 g/dL 01/03/2025 6:56 AM CDT [facility] Hematocrit 18.3(L) 35.0 - 47.0 % 01/03/2025 6:56 AM CDT [facility] MCV 95.8 78.0 - 100.0 fL 01/03/2025 6:56 AM CDT [facility] MCH 34.0(H) 26.5 - 33.0 pg 01/03/2025 6:56 AM CDT [facility] MCHC 35.5 31.5 - 36.5 g/dL 01/03/2025 6:56 AM CDT [facility] RDW 20.4(H) 10.0 - 15.0 % 01/03/2025 6:56 AM CDT [facility] Platelet Count 355 150 - 450 10e3/uL 01/03/2025 6:56 AM CDT [facility] Blood STRUCTURE OF RIGHT WRIST REGION / Unknown Venipuncture / Unknown 01/03/2025 6:29 AM CDT 01/03/2025 6:45 AM CDT Preston Nunes PA-C LAB - BLOOD ORDERABLES Final Result [facility] Acute Care Lab [address] [facility], [address] [place] [phone] * (ABNORMAL) Basic Metabolic Panel (Limited Occurrences) (01/03/2025 6:29 AM CDT) Sodium 135 135 - 145 mmol/L 01/03/2025 7:08 AM CDT [facility] Potassium 4.3 3.4 - 5.3 mmol/L 01/03/2025 7:08 AM CDT [facility] Chloride 103 98 - 107 mmol/L 01/03/2025 7:08 AM CDT [facility] Carbon Dioxide (CO2) 22 22 - 29 mmol/L 01/03/2025 7:08 AM CDT [facility] Anion Gap 10 7 - 15 mmol/L 01/03/2025 7:08 AM CDT [facility] Urea Nitrogen 7.9 6.0 - 20.0 mg/dL 01/03/2025 7:08 AM CDT [facility] Creatinine 0.62 0.51 - 0.95 mg/dL 01/03/2025 7:08 AM CDT [facility] GFR Estimate >90 >60 mL/min/1.7 3m2 01/03/2025 7:08 AM CDT [facility] Comment:eGFR calculated usin g 2020 CKD-EPI equation. Calcium 8.5(L) 8.8 - 10.4 mg/dL 01/03/2025 7:08 AM CDT [facility] Glucose 101(H) 70 - 99 mg/dL 01/03/2025 7:08 AM CDT [facility] Blood STRUCTURE OF RIGHT WRIST REGION / Unknown Venipuncture / Unknown 01/03/2025 6:29 AM CDT 01/03/2025 6:45 AM CDT us Preston Nunes PA-C LAB - BLOOD ORDERABLES Final Result [facility] Acute Care Lab [address] [facility], [address] [place] [phone] * (ABNORMAL) UA with Microscopic reflex to Culture (01/02/2025 5:13 PM CDT) Color Urine Light Yellow Colorless, Straw, Light Yellow, Yellow 01/02/2025 5:30 PM CDT [facility] Appearance Urine Clear Clear 01/03/20 5:30 PM CDT [facility] Glucose Urine Negative Negative mg/dL 01/02/2025 5:30 PM CDT [facility] Bilirubin Urine Negative Negative 5:30 PM CDT [facility] Ketones Urine Negative Negative mg/dL 01/02/2025 5:30 PM CDT [facility] Specific Bond Urine 1.009 1.003 - 1.035 01/02/2025 5:30 PM CDT [facility] Blood Urine Negative Negative 01/02/2025 5:30 PM CDT [facility] pH Urine 7.0 5.0 - 7.0 01/02/2025 5:30 PM CDT [facility] Protein Albumin Urine Negative Negative mg/dL 01/02/2025 5:30 PM CDT [facility] Urobilinogen Urine 2.0(A) Normal mg/dL 01/02/2025 5:30 PM CDT [facility] Nitrite Urine Negative Negative 01/02/2025 5:30 PM CDT [facility] Leukocyte Esterase Urine Negative Negative 01/02/2025 5:30 PM CDT [facility] LABORATORY RBC Urine 0 <=2 /HPF 01/02/2025 5:30 PM CDT [facility] WBC Urine 1 <=5 /HPF 01/02/2025 5:30 PM CDT [facility] Squamous Epithelials Urine 6(H) <=1 /HPF 01/02/2025 5:30 PM CDT [facility] Urine MID-STREAM URINE SPECIMEN / Unknown Non-blood Collection / Unknown 01/02/2025 5:13 PM CDT 01/02/2025 5:16 PM CDT Narrative [facility] - 01/02/2025 5:30 PM CDT Urine Culture not indicated us Preston Nunes PA-C LAB - URINE ORDERABLES Final Result [facility] [address] [facility], [address] [place] [address] * Blood Culture Peripheral blood (BC) Hand, Right (01/02/2025 4:38 PM CDT) Culture No Growth 01/07/2025 5:46 PM CDT [facility]AT[facility] Peripheral blood (BC) STRUCTURE OF RIGHT HAND / Unknown Venipuncture / Unknown 01/02/2025 4:38 PM CDT 01/02/2025 4:49 PM CDT us Owen Seaman MD LAB - MICRO GENERAL ORD ERABLES Final Result [facility]AT[facility] Inf. Diseases Diag. Lab [address] [facility], [address] [place] [address] * ECHO MANUEL (01/02/2025 2:41 PM CDT) LVEF 55-60% CARDIOLOGY RESULTS Anatomical Region Laterality Modality Echocardiography 01/02/2025 2:00 PM CDT Narrative 01/02/2025 2:59 PM CDT [id number]^FRANKIE^PRESTON^[facility],[place] [facility] [address] [place] [address] Name: CORBIN LEW N : 1995 Study Date: 01/02/2025 02:00 PM Age: 29 yrs Gender: Female Patient Location: [facility] Reason For Study: Endocarditis History: Thrombus Ordering Physician: PRESTON NUNES Performed By: Gale Sena BSA: 1.5 m2 Height: 61 in Weight: 110 lb HR: 86 BP: 104/43 mmHg Attestation I was present during MANUEL probe placement by the fellow, Gale Sena. I personally viewed the imaging and agree with the interpretation and report as documented by the fellow. Interpretation Summary Global biventricular function is normal. There is a partially calcified echodensity attached to the posterior wall of the right atrium just above the tricuspid annulus measuring 2.2 x 1.4 cm. 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 Mild tricuspid insufficiency is present. No valvular vegetations noted. No pericardial effusion is present. Procedure Transesophageal Echocardiogram with two-dimensional, color and spectral Doppler. 3D image acquisition, reconstruction, and real-time interpretation was performed. Procedure location Echo Lab. Informed consent for Transesophegeal echo obtained. MANUEL Probe #[id number] was used during the procedure. Patient was sedated using Fentanyl 75 mcg. Patient was sedated using Versed 3 mg. The heart rate, respiratory rate, oxygen saturations, blood pressure, and response to care were monitored throughout the procedure with the assistance of the nurse. I determined this patient to be an appropriate candidate for the planned sedation and procedure and have reassessed the patient immediately prior to sedation and procedure. Total sedation time: 19 minutes of continuous bedside 1:1 monitoring. The Transducer was inserted without difficulty . The patient tolerated the procedure well. Complications None. Left Ventricle Left ventricular size is normal. Global and regional left ventricular function is normal with an EF of 55-60%. Right Ventricle The right ventricle is normal size. Global right ventricular function is normal. Atria The left atrial appendage is normal. It is free of spontaneous echo contrast and thrombus. Mild biatrial enlargement is present. There is a partially calcified echodensity attached to the posterior wall of the right atrium just above the tricuspid annulus measuring 2.2 x 1.4 cm. 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 The atrial septum is intact as assessed by color Doppler . Mitral Valve The mitral valve is normal. Trace mitral insufficiency is present. Aortic Valve The aortic valve is tricuspid. No aortic regurgitation is present. Tricuspid Valve No vegetation noted on the tricuspid valve. Mild tricuspid insufficiency is present. Right ventricular systolic pressure is 27mmHg above the right atrial pressure. Pulmonic Valve The pulmonic valve is normal. Trace pulmonic insufficiency is present. Vessels The thoracic aorta is normal. Pericardium No pericardial effusion is present. Report approved by: Paula Miramontes MD on 01/02/2025 02:59 PM Procedure Note Paula Miramontes MD - 01/02/2025 [id number]^FRANKIE^PRSETON^M [facility],[place] [facility] [address] [place] [address] Name: LEW HERNÁNDEZ : 1995 Study Date: 01/02/2025 02:00 PM Age: 29 yrs Gender: Female Patient Location: [facility] Reason For Study: Endocarditis History: Thrombus Ordering Physician: PRESTON NUNES Performed By: Gale Sena BSA: 1.5 m2 Height: 61 in Weight: 110 lb HR: 86 BP: 104/43 mmHg Attestation I was present during MANUEL probe placement by the fellow, Gale Sena. I personally viewed the imaging and agree with the interpretation and reportas documented by the fellow. Interpretation Summary Global biventricular function is normal. 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 Based on patient's history,the thrombus is likely from endothelial injury related to indwellingcatheter. Mild tricuspid insufficiency is present. No valvular vegetations noted. No pericardial effusion is present. Procedure Transesophageal Echocardiogram with two-dimensional, color and spectral Doppler. 3D image acquisition, reconstruction, and real-timeinterpretation was performed. Procedure location Echo Lab. Informed consent for Transesophegeal echo obtained. MANUEL Probe #67 was used during theprocedure. Patient was sedated using Fentanyl 75 mcg. Patient was sedated usingVersed 3 mg. The heart rate, respiratory rate, oxygen saturations, blood pressure,and response to care were monitored throughout the procedure with theassistance of the nurse. I determined this patient to be an appropriate candidate forthe planned sedation and procedure and have reassessed the patientimmediately prior to sedation and procedure. Total sedation time: 19 minutes ofcontinuous bedside 1:1 monitoring. The Transducer was inserted without difficulty .The patient tolerated the procedure well. Complications None. Left Ventricle Left ventricular size is normal. Global and regional left ventricularfunction is normal with an EF of 55-60%. Right Ventricle The right ventricle is normal size. Global right ventricular function is normal. Atria The left atrial appendage is normal. It is free of spontaneous echocontrast and thrombus. Mild biatrial enlargement is present. There is a partially calcified echodensity attached to the posterior wall of the right atriumjust above the tricuspid annulus measuring 2.2 x 1.4 cm. This is likely achronic and organized thrombus. The atrial septum is intact as assessed by color Doppler . Mitral Valve The mitral valve is normal. Trace mitral insufficiency is present. Aortic Valve The aortic valve is tricuspid. No aortic regurgitation is present. Tricuspid Valve No vegetation noted on the tricuspid valve. Mild tricuspid insufficiencyis present. Right ventricular systolic pressure is 27mmHg above the rightatrial pressure. Pulmonic Valve The pulmonic valve is normal. Trace pulmonic insufficiency is present. Vessels The thoracic aorta is normal. Pericardium No pericardial effusion is present. Report approved by: Paula Miramontes MD on 01/02/2025 02:59 PM us Perston Nunes PA-C CV ECHO ORDERABLES Edited Re sult - Final * (ABNORMAL) RBC and Platelet Morphology (01/02/2025 8:48 AM CDT) RBC Morphology Confirmed RBC Indices 01/02/2025 9:33 AM CDT [facility] Platelet Assessment Automated Count Confirmed. Platelet morphology is normal. Automated Count Confirmed. Platelet morphology is normal. 01/02/2025 9:33 AM CDT [facility] Polychromasia Slight(A) None Seen 01/02/2025 9:33 AM CDT [facility] Sickle Cells Slight(A) None Seen 01/02/2025 9:33 AM CDT [facility] Target Cells Slight(A) None Seen 01/02/2025 9:33 AM CDT [facility] Blood BLOOD SPECIMEN / Unknown Venipuncture / Unknown 01/02/2025 8:48 AM CDT 01/02/2025 8:54 AM CDT us Jonathan Fitch MD LAB - BLOOD ORDERABLES F inal Result [facility]AT[facility] [address] [facility], [address] [place] [address] * (ABNORMAL) CBC with platelets and differential (01/02/2025 8:48 AM CDT) WBC Count 12.74(H) 4.00 - 11.00 10e3/uL 01/02/2025 9:33 AM CDT [facility] RBC Count 2.20(L) 3.80 - 5.20 10e6/uL 01/02/2025 9:33 AM CDT [facility] Hemoglobin 7.4(L) 11.7 - 15.7 g/dL 01/02/2025 9:33 AM CDT [facility] Hematocrit 21.4(L) 35.0 - 47.0 % 01/02/2025 9:33 AM CDT [facility] MCV 97.3 78.0 - 100.0 fL 01/02/2025 9:33 AM CDT [facility] MCH 33.6(H) 26.5 - 33.0 pg 01/02/2025 9:33 AM CDT [facility] MCHC 34.6 31.5 - 36.5 g/dL 01/02/2025 9:33 AM CDT [facility] RDW 19.9(H) 10.0 - 15.0 % 01/02/2025 9:33 AM CDT [facility] Platelet Count 387 150 - 450 10e3/uL 01/02/2025 9:33 AM CDT [facility] % Neutrophils 55.8 % 01/02/2025 9:33 AM CDT [facility] % Lymphocytes 27.5 % 01/02/2025 9:33 AM CDT [facility] % Monocytes 14.3 % 01/02/2025 9:33 AM CDT [facility] % Eosinophils 0.8 % 01/02/2025 9:33 AM CDT [facility] % Basophils 0.9 % 01/02/2025 9:33 AM CDT [facility] % Immature Granulocytes 0.7 % 01/02/2025 9:33 AM CDT [facility] NRBCs per 100 WBC 2.1(H) <1.0 /100 01/02/2025 9:33 AM CDT [facility] Absolute Neutrophils 7.12 1.60 - 8.30 10e3/uL 01/02/2025 9:33 AM CDT [facility] Absolute Lymphocytes 3.50 0.80 - 5.30 10e3/uL 01/02/2025 9:33 AM CDT [facility] Absolute Monocytes 1.82(H) 0.00 - 1.30 10e3/uL 01/02/2025 9:33 AM CDT [facility] Absolute Eosinophils 0.10 0.00 - 0.70 10e3/uL 01/02/2025 9:33 AM CDT [facility] Absolute Basophils 0.11 0.00 - 0.20 10e3/uL 01/02/2025 9:33 AM CDT [facility] Absolute Immature Granulocytes 0.09 <=0.40 10e3/uL 01/02/2025 9:33 AM CDT [facility] Absolute NRBCs 0.27 10e3/uL 01/02/2025 9:33 AM CDT [facility] Blood BLOOD SPECIMEN / Unknown Venipuncture / Unknown 01/02/2025 8:48 AM CDT 01/02/2025 8:54 AM CDT Jonathan Fitch MD LAB - BLOOD ORDERABLES F inal Result LABORATORY [facility] [address] [facility], [address] [id number] * (ABNORMAL) CRP inflammation (01/02/2025 8:48 AM CDT) Pathologist [facility] CRP Inflammation 15.50(H) <5.00 mg/L 01/02/2025 9:31 AM CDT [facility] Blood BLOOD SPECIMEN / Unknown Venipuncture / Unknown 01/02/2025 8:48 AM CDT 01/02/2025 8:54 AM CDT Jonathan Fitch MD LAB - BLOOD ORDERABLES F inal Result Performing Organization Address City/[facility]/ZIP Co de Phone Number LABORATORY [facility] [address] [facility], [address] [phone] * (ABNORMAL) Reticulocyte count (01/02/2025 8:48 AM CDT) Pathologist [facility] % Reticulocyte 11.71(H) 0.50 - 2.00 % 01/02/2025 9:01 AM CDT U LABORATORY Absolute Reticulocyte 0.2576(H) 0.0250 - 0.0950 10e6/uL 01/02/2025 9:01 AM CDT U LABORATORY Blood BLOOD SPECIMEN / Unknown Venipuncture / Unknown 01/02/2025 8:48 AM CDT 01/02/2025 8:54 AM CDT Jonathan Fitch MD LAB - BLOOD ORDERABLES F inal Result LABORATORY [facility] [address] [facility], [address] [id number] * (ABNORMAL) Comprehensive Metabolic Panel (Limited Occurrences) (01/02/2025 8:48 AM CDT) Pathologist [facility] Sodium 136 135 - 145 mmol/L 01/02/2025 9:31 AM CDT [facility] Potassium 3.9 3.4 - 5.3 mmol/L 01/02/2025 9:31 AM CDT [facility] Carbon Dioxide (CO2) 21(L) 22 - 29 mmol/L 01/02/2025 9:31 AM CDT [facility] Anion Gap 13 7 - 15 mmol/L 01/02/2025 9:31 AM CDT [facility] Urea Nitrogen 11.0 6.0 - 20.0 mg/dL 01/02/2025 9:31 AM CDT [facility] Creatinine 0.70 0.51 - 0.95 mg/dL 01/02/2025 9:31 AM CDT [facility] GFR Estimate >90 >60 mL/min/1.7 3m2 01/02/2025 9:31 AM CDT [facility] Comment:eGFR calculated 2020 CKD-EPI equation. Calcium 9.2 8.8 - 10.4 mg/dL 01/02/2025 9:31 AM CDT [facility] Chloride 102 98 - 107 mmol/L 01/02/2025 9:31 AM CDT [facility] Glucose 94 70 - 99 mg/dL 01/02/2025 9:31 AM CDT [facility] Alkaline Phosphatase 109 40 - 150 U/L 01/02/2025 9:31 AM CDT [facility] AST 67(H) 0 - 45 U/L 01/02/2025 9:31 AM CDT [facility] ALT 54(H) 0 - 50 U/L 01/02/2025 9:31 AM CDT [facility] Protein Total 8.0 6.4 - 8.3 g/dL 01/02/2025 9:31 AM CDT [facility] Albumin 4.3 3.5 - 5.2 g/dL 01/02/2025 9:31 AM CDT [facility] Bilirubin Total 2.0(H) <=1.2 mg/dL 01/02/2025 9:31 AM CDT [facility] Blood BLOOD SPECIMEN / Unknown Venipuncture / Unknown 01/02/2025 8:48 AM CDT 01/02/2025 8:54 AM CDT us Jonathan Fitch MD LAB - BLOOD ORDERABLES F inal Result [facility] LAB[facility]AT[facility] [address] [facility], [address] [place] [address], [facility] documented in this encounter Visit Diagnoses Diagnosis 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 $Given 01/04/2025 5:59 AM CDT 650 mg $Given 01/03/2025 9:32 PM CDT 650 mg $Given 01/03/2025 1:11 PM CDT 650 mg apixaban ANTICOAGULANT (ELIQUIS) tablet 5 mg 5 mg, Oral, 2 TIMES DAILY, First dose on Wed01/02/25 at 2000, Indications: DVT-PE TreatmentIndications:DVT-PE Treatment $Given 01/04/2025 8:22 AM CDT 5 mg $Given 01/03/2025 7:27 PM CDT 5 mg $Given 01/03/2025 8:06 AM CDT 5 mg benzocaine 20% (HURRICAINE/TOPEX) 20 % spray 0.5-2 mL 0.5-2 mL (1-4 spray), Mouth/Throat, ONCE, On Wed01/02/25 at 1350, For 1 dose, When verbally ordered by the prescriber. [place] throat with 1-4 sprays 5 minutes prior to procedure in the [facility] procedure room as directed by provider. , Cardiac Intra-procedure $Given 01/02/2025 1:55 PM CDT 0.5 mLs diphenhydrAMINE (BENADRYL) capsule 25-50 mg 25-50 mg, Oral, EVERY 6 HOURS PRN, itching, Starting on Wed01/02/25 at 1432 $Given 01/03/2025 12:11 PM CDT 50 mg $Given 01/02/2025 7:42 PM CDT 50 mg diphenhydrAMINE (BENADRYL) capsule 25-50 mg 25-50 mg, Oral, EVERY 6 HOURS PRN, itching, sleep, Starting on Wed01/03/25 at 2320 $Given 01/03/2025 11:34 PM CDT 50 m g fentaNYL (PF) (SUBLIMAZE) injection 25 mcg 25 mcg, Intravenous, EVERY 2 MIN PRN, other, For moderate sedation when verbally ordered by the prescriber during the procedure, Administer over 2 Minutes, Starting on Wed01/02/25 at 1347, Subsequent doses if needed for pain during procedure. If inadequate response to initial dose, may repeat up to maximum of 200 mcg total dose in 60 minutes. Doses can be exceeded under direct oversight of patient by physician. Caution: may have synergistic effect when used with midazolam., Cardiac Intra-procedure $Given 01/02/2025 2:09 PM CDT 25 mcg $Given 01/02/2025 2:04 PM CDT 50 mcg FLUoxetine (PROzac) capsule 40 mg 40 mg, Oral, DAILY, First dose on Wed01/03/25 at 0800 $Given 01/04/2025 8:22 AM CDT 40 mg $Given 01/03/2025 8:06 AM CDT 40 mg folic acid (FOLVITE) tablet 1 mg 1 mg, Oral, DAILY, First dose on Wed01/03/25 at 0800 $Given 01/04/2025 8:22 AM CDT 1 mg $Given 01/03/2025 8:06 AM CDT 1 mg HYDROmorphone (DILAUDID) injection 1 mg 1 mg, Intravenous, ONCE, On Wed01/02/25 at 1255, For 1 dose $Given 01/02/2025 1:02 PM CDT 1 mg hydromorphone (DILAUDID) injection 2 mg 2 mg, Intravenous, ONCE, On Wed01/02/25 at 0835, For 1 dose $Given 01/02/2025 8:54 AM CDT 2 mg hydromorphone (DILAUDID) injection 2 mg 2 mg, Intravenous, ONCE, On Wed01/02/25 at 1015, For 1 dose $Given 01/02/2025 10:17 AM CDT 2 mg hydromorphone (DILAUDID) injection 2 mg 2 mg, Intravenous, ONCE, On Wed01/02/25 at 1150, For 1 dose $Given 01/02/2025 11:55 AM CDT 2 mg hydromorphone (DILAUDID) injection 2 mg 2 mg, Intravenous, EVERY 2 HOURS PRN, severe pain, Starting on Wed01/02/25 at 1432, For 1 day, Hold if patient unresponsive or severe decreased responsiveness $Given 01/03/2025 2:23 PM CDT 2 mg $Given 01/03/2025 12:11 PM CDT 2 mg $Given 01/03/2025 10:19 AM CDT 2 mg hydromorphone (DILAUDID) injection 2 mg 2 mg, Intravenous, EVERY 2 HOURS PRN, severe pain, Starting on Wed01/03/25 at 1641, Hold if patient unresponsive or severe decreased responsiveness $Given 01/04/2025 10:18 AM CDT 2 mg $Given 01/04/2025 8:18 AM CDT 2 mg $Given 01/04/2025 5:59 AM CDT 2 mg hydroxyurea (HYDREA) capsule 1,000 mg 1,000 mg, Oral, 2 TIMES DAILY, First dose on Wed01/02/25 at 2000, Indications: sickle cell, Do not crush May require hepatic and/or renal dose or frequency adjustments. See reference link for guidelines.Indications:sickle cell $Given 01/04/2025 8:18 AM CDT 1,000 mg $Given 01/03/2025 7:27 PM CDT 1,000 mg $Given 01/03/2025 8:09 AM CDT 1,000 mg lactated ringers BOLUS 1,000 mL Intravenous, 1,000 mL, ONCE, at 1,000 mL/hr, Administer over 1 Hours, On Wed01/02/25 at 0835, For 1 dose $New Bag 01/02/2025 8:55 AM CDT 1,000 mLs 1000 mL/hr lactated ringers infusion at 75 mL/hr, Intravenous, CONTINUOUS, Starting on Wed01/02/25 at 1435, Until 9/10/25 at 0034 $New Bag 01/02/2025 10:07 PM CDT 75 mL/hr Rate/Dose Verify 01/02/2025 6:21 PM CDT 75 mL/h r $New Bag 01/02/2025 3:35 PM CDT 75 mL/hr lidocaine (viscous) (XYLOCAINE) 2 % solution 15 mL 15 mL, Mouth/Throat, ONCE, On Wed01/02/25 at 1350, For 1 dose, Gargle and swallow. Once 20 minutes prior to the procedure in the [facility] procedure room. , Cardiac Intra-procedure $Given 01/02/2025 1:55 PM CDT 30 mLs midazolam (VERSED) injection 1 mg 1 mg, Intravenous, Administer over 1 Minutes, EVERY 2 MIN PRN, sedation, when verbally ordered by the prescriber during the procedure, Starting on Wed01/02/25 at 1347, Give 1 mg initial dose for sedation at beginning of procedure. If inadequate sedation response, may give 1 mg every 2 minutes as needed when verbally ordered by the prescriber during the procedure. Maximum of 7.5 mg total dose. Doses can be exceeded under direct oversight of patient by physician. Caution: when used with opioids, may need lower doses. This drug may cause significant respiratory depression. Monitor respiratory status and vital signs carefully for 1 hour after each dose., Cardiac Intra-procedure $Given 01/02/2025 2:09 PM CDT 1 mg $Given 01/02/2025 2:04 PM CDT 2 mg multivitamin, therapeutic (THERA-VIT) tablet 1 tablet 1 tablet, Oral, DAILY, First dose on Wed01/03/25 at 0800 $Given 01/04/2025 8:22 AM CDT 1 tablet $Given 01/03/2025 8:06 AM CDT 1 tablet naloxone (NARCAN) injection 0.2 mg 0.2 mg, Intravenous, EVERY 2 MIN PRN, opioid reversal, Starting on Wed01/03/25 at 1640, Administer intravenous route when available and notify [...] 2 MIN PRN, opioid reversal, Starting on Wed01/03/25 at 1640, Administer intramuscular if an intravenous route is [...] 2 MIN PRN, opioid reversal, Starting on Wed01/03/25 at 1640, Administer intravenous route when available and notify [...] 2 MIN PRN, opioid reversal, Starting on Wed01/03/25 at 1640, Administer intramuscular if an intravenous route is [...] have not improved after 4 naloxone doses. ondansetron (ZOFRAN ODT) ODT tab 4 mg 4 mg, Oral, EVERY 6 HOURS PRN, nausea/vomiting - 1st line, Starting on Wed01/02/25 at 1432, This is Step 1 of nausea and vomiting management. If nausea not resolved in 15 minutes, go to Step 2 prochlorperazine (COMPAZINE). With dry hands, peel back foil backing and gently remove tablet. Do not push oral disintegrating tablet through foil backing. Administer immediately on tongue and oral disintegrating tablet dissolves in seconds, then swallow with saliva. Liquid not required. ondansetron (ZOFRAN) injection 4 mg 4 mg, Intravenous, EVERY 6 HOURS PRN, nausea/vomiting - 1st line, Administer over 2-5 Minutes, Starting on Wed01/02/25 at 1432, Give IF patient unable to tolerate oral medication. This is Step 1 of nausea and vomiting management. If nausea not resolved in 15 minutes, go to Step 2 prochlorperazine (COMPAZINE). prochlorperazine (COMPAZINE) injection 10 mg 10 mg, Intravenous, EVERY 6 HOURS PRN, nausea/vomiting - 2nd line, Administer over 1-2 Minutes, Starting on Wed01/02/25 at 1432, IF patient unable to tolerate oral medication. This is Step 2 of nausea and vomiting management. Give if nausea not resolved 15 minutes after giving ondansetron (ZOFRAN). prochlorperazine (COMPAZINE) tablet 10 mg 10 mg, Oral, EVERY 6 HOURS PRN, nausea/vomiting - 2nd line, Starting on Wed01/02/25 at 1432, This is Step 2 of nausea and vomiting management. Give if nausea not resolved 15 minutes after giving ondansetron (ZOFRAN). senna-docusate (SENOKOT-S/PERICOLACE) 8.6-50 MG per tablet 1 tablet 1 tablet, Oral, 2 TIMES DAILY PRN, constipation, Starting on Wed01/02/25 at 1432, If no bowel movement in 24 hours, [...] 2 TIMES DAILY PRN, constipation, Starting on Wed01/02/25 at 1432, IF more than 1 constipation PRN medication is ordered, administer step-barriga as indicated, moving to the next step ONLY if prior step ineffective. Step 1: senna-docusate (SENOKOT-S; PERICOLACE) OR bisacodyl (DULCOLAX) EC tablet Step 2: polyethylene glycol (MIRALAX/GLYCOLAX) Step 3: bisacodyl (DULCOLAX) suppository Step 4: enema Hold for loose stools. sodium chloride (PF) 0.9% PF flush 3 mL 3 mL, Intracatheter, EVERY 8 HOURS SCHEDULED, First dose on Wed01/02/25 at 1435, to lock peripheral IV dormant line $Given 01/04/2025 6:02 AM CDT 3 mLs $Given 01/03/2025 9:36 PM CDT 3 mLs $Given 01/03/2025 1:28 PM CDT 3 mLs sodium chloride 0.9 % infusion Jaja Patel: cabinet override, 1 dose, Starting on Wed01/03/25 at 1202, Until Wed01/03/25 at 1329 $New Bag 01/03/2025 1:29 PM CDT traZODone (DESYREL) tablet 50 mg 50 mg, Oral, ONCE, On Wed01/04/25 at 0230, For 1 dose $Given 01/04/2025 2:20 AM CDT 50 mg documented in this encounter Active and Recently Administered Medications Times are shown in CDT. Scheduled Medication Order 01/02/2025 01/03/2025 01/04/2025 acetaminophen (TYLENOL) tablet 650 mg 650 mg, Oral, EVERY 8 HOURS SCHEDULED, First dose on Wed01/02/25 at 1515, Maximum acetaminophen dose from all sources = 75 mg/kg/day not to exceed 4 grams/day. 1616 ($Given - Provider: Carmen Powers RN)2205 ($Given - Provider: Ana María Zuniga RN) 0611 ($Given - Provider: Zuly Escamilla RN)1311 ($Given - Provider: Jaja Patel RN)2132 ($Given - Provider: Sagrario Lara RN) 0559 ($Given - Provider: Sagrario Lara RN) apixaban ANTICOAGULANT (ELIQUIS) tablet 5 mg 5 mg, Oral, 2 TIMES DAILY, First dose on Wed01/02/25 at 2000, Indications: DVT-PE Treatment 1940 ($Given - Provider: Rin Ojeda, SOFIA) 0806 ($Given - Provider: Eliza Alanis RN)1927 ($Given - Provider: Sagrario Lara RN) 0822 ($Given - Provider: Jaja Patel RN) benzocaine 20% (HURRICAINE/TOPEX) 20 % spray 0.5-2 mL (COMPLETED) 0.5-2 mL (1-4 spray), Mouth/Throat, ONCE, On Wed01/02/25 at 1350, For 1 dose, When verbally ordered by the prescriber. [place] throat with 1-4 sprays 5 minutes prior to procedure in the [facility] procedure room as directed by provider. , Cardiac Intra-procedure 1355 ($Given - Provider: Cookie Osuna, SOFIA) FLUoxetine (PROzac) capsule 40 mg 40 mg, Oral, DAILY, First dose on Wed01/03/25 at 0800 0806 ($Given - Provider: Eliza Alanis, SOFIA) 0822 ($Given - Provider: Jaja Patel, SOFIA) folic acid (FOLVITE) tablet 1 mg 1 mg, Oral, DAILY, First dose on Wed01/03/25 at 0800 0806 ($Given - Provider: Eliza Alanis, SOFIA) 0822 ($Given - Provider: Jaja Patel RN) HYDROmorphone (DILAUDID) injection 1 mg (COMPLETED) 1 mg, Intravenous, ONCE, On Wed01/02/25 at 1255, For 1 dose 1302 ($Given - Provider: Tammi Dave RN) hydromorphone (DILAUDID) injection 2 mg (COMPLETED) 2 mg, Intravenous, ONCE, On Wed01/02/25 at 0835, For 1 dose 0854 ($Given - Provider: Dave Burciaga RN) hydromorphone (DILAUDID) injection 2 mg (COMPLETED) 2 mg, Intravenous, ONCE, On Wed01/02/25 at 1015, For 1 dose 1017 ($Given - Provider: Tammi Dave RN) hydromorphone (DILAUDID) injection 2 mg (COMPLETED) 2 mg, Intravenous, ONCE, On Wed01/02/25 at 1150, For 1 dose 1155 ($Given - Provider: Tammi Dave RN) hydroxyurea (HYDREA) capsule 1,000 mg 1,000 mg, Oral, 2 TIMES DAILY, First dose on Wed01/02/25 at 2000, Indications: sickle cell, Do not crush May require hepatic and/or renal dose or frequency adjustments. See reference link for guidelines. 1937 ($Given - Provider: Rin Ojeda, RN) 0809 ($Given - Provider: Eliza Alanis, RN)1927 ($Given - Provider: Sagrario Lara, RN) 0818 ($Given - Provider: Jaja Patel, SOFIA) lactated ringers BOLUS 1,000 mL (COMPLETED) Intravenous, 1,000 mL, ONCE, at 1,000 mL/hr, Administer over 1 Hours, On Wed01/02/25 at 0835, For 1 dose 0855 ($New Bag - Provider: Dave Burciaga, RN)0955 (Stopped - Provider: Tammi Dave RN) lidocaine (viscous) (XYLOCAINE) 2 % solution 15 mL (COMPLETED) 15 mL, Mouth/Throat, ONCE, On Wed01/02/25 at 1350, For 1 dose, Gargle and swallow. Once 20 minutes prior to the procedure in the [facility] procedure room. , Cardiac Intra-procedure 1355 ($Given - Provider: Cookie Osuna RN) multivitamin, therapeutic (THERA-VIT) tablet 1 tablet 1 tablet, Oral, DAILY, First dose on Wed01/03/25 at 0800 0806 ($Given - Provider: Eliza Alanis, SOFIA) 0822 ($Given - Provider: Jaja Patel RN) sodium chloride (PF) 0.9% PF flush 3 mL 3 mL, Intracatheter, EVERY 8 HOURS SCHEDULED, First dose on Wed01/02/25 at 1435, to lock peripheral IV dormant line 1540 (Canceled Entry - Provider: Carmen Powers RN - Comment: IVF infusing)2221 (Not Given - Provider: Ana María Zuniga RN - Reason: IV Infusing) 0644 ($Given - Provider: Zuly Escamilla, SOFIA)1328 ($Given - Provider: Jaja Patel, SOFIA)2136 ($Given - Provider: Sagrario Lara RN) 0602 ($Given - Provider: Sagrario Lara RN) traZODone (DESYREL) tablet 50 mg (COMPLETED) 50 mg, Oral, ONCE, On [place] 01/04/25 at 0230, For 1 dose 0220 ($Given - Provider: Sagrario Lara RN) Continuous Medication Order 01/02/2025 01/03/2025 01/04/2025 lactated ringers infusion () at 75 mL/hr, Intravenous, CONTINUOUS, Starting on Wed01/02/25 at 1435, Until Wed01/03/25 at 0034 1535 ($New Bag - Provider: Carmen Powers RN)1821 (Rate/Dose Verify - Provider: Carmen Powers RN)2207 ($New Bag - Provider: Ana María Zuniga RN) 0232 (Stopped - Provider: Zuly Escamilla RN) PRN Medication Order 01/02/2025 01/03/2025 01/04/2025 calcium carbonate (TUMS) chewable tablet 1,000 mg 1,000 mg, Oral, 4 TIMES DAILY PRN, heartburn, Starting on Wed01/02/25 at 1432 diphenhydrAMINE (BENADRYL) capsule 25-50 mg (CANCELED) 25-50 mg, Oral, EVERY 6 HOURS PRN, itching, Starting on Wed01/02/25 at 1432 1942 ($Given - Provider: Rin Ojeda RN) 1211 ($Given - Provider: Jaja Patel RN) diphenhydrAMINE (BENADRYL) capsule 25-50 mg 25-50 mg, Oral, EVERY 6 HOURS PRN, itching, sleep, Starting on Wed01/03/25 at 2320 2334 ($Given - Provider: Sagrario Lara RN) fentaNYL (PF) (SUBLIMAZE) injection 25 mcg (CANCELED) 25 mcg, Intravenous, EVERY 2 MIN PRN, other, For moderate sedation when verbally ordered by the prescriber during the procedure, Administer over 2 Minutes, Starting on Wed01/02/25 at 1347, Subsequent doses if needed for pain during procedure. If inadequate response to initial dose, may repeat up to maximum of 200 mcg total dose in 60 minutes. Doses can be exceeded under direct oversight of patient by physician. Caution: may have synergistic effect when used with midazolam., Cardiac Intra-procedure 1404 ($Given - Provider: Cookie Osuna, SOFIA)1409 ($Given - Provider: Cookie Osuna RN) hydromorphone (DILAUDID) injection 2 mg () 2 mg, Intravenous, EVERY 2 HOURS PRN, severe pain, Starting on Wed01/02/25 at 1432, For 1 day, Hold if patient unresponsive or severe decreased responsiveness 1535 ($Given - Provider: Carmen Powers RN)1726 ($Given - Provider: Carmen Powers RN)1941 ($Given - Provider: Rin Ojeda, SOFIA)2206 ($Given - Provider: Ana María Zuniga, SOFIA) 0020 ($Given - Provider: Zuly Escamilla RN)0218 ($Given - Provider: Zuly Escamilla RN)0410 ($Given - Provider: uZly Escamilla, SOFIA)0611 ($Given - Provider: Zuly Escamilla RN)0806 ($Given - Provider: Eliza Alanis RN)1019 ($Given - Provider: Jaja Patel RN)1211 ($Given - Provider: Jaja Patel RN)1423 ($Given - Provider: Jaja Patel RN) hydromorphone (DILAUDID) injection 2 mg(Linked Group 1) 2 mg, Intravenous, EVERY 2 HOURS PRN, severe pain, Starting on Wed01/03/25 at 1641, Hold if patient unresponsive or severe decreased responsiveness 1709 ($Given - Provider: Jaja Patel RN)1927 ($Given - Provider: Sagrario Lara RN)2132 ($Given - Provider: Sagrario Lara RN)2334 ($Given - Provider: Sagrario Lara RN) 0139 ($Given - Provider: Sagrario Lara RN)0401 ($Given - Provider: Sagrario Lara RN)0559 ($Given - Provider: Sagrario Lara RN)0818 ($Given - Provider: Jaja Patel RN)1018 ($Given - Provider: Jaja Patel RN) lidocaine (LMX4) cream Topical, EVERY 1 HOUR PRN, pain, with VAD insertion, Starting on Wed01/02/25 at 1432, Apply at least 30 minutes prior to [...] mild pain with VAD insertion, Starting on Wed01/02/25 at 1432, MAX dose 1 mL subcutaneous OR intradermal along the side of the vein in divided doses as needed for VAD insertion. Do NOT give if patient has a history of allergy to any local anesthetic or any horacio product. Do NOT use both lidocaine intradermal/subcutaneous injection and the lidocaine cream on the same site. midazolam (VERSED) injection 1 mg (CANCELED) 1 mg, Intravenous, Administer over 1 Minutes, EVERY 2 MIN PRN, sedation, when verbally ordered by the prescriber during the procedure, Starting on Wed01/02/25 at 1347, Give 1 mg initial dose for sedation at beginning of procedure. If inadequate sedation response, may give 1 mg every 2 minutes as needed when verbally ordered by the prescriber during the procedure. Maximum of 7.5 mg total dose. Doses can be exceeded under direct oversight of patient by physician. Caution: when used with opioids, may need lower doses. This drug may cause significant respiratory depression. Monitor respiratory status and vital signs carefully for 1 hour after each dose., Cardiac Intra-procedure 1404 ($Given - Provider: Cookie Osuna RN)1409 ($Given - Provider: Cookie Osuna, SOFIA) naloxone (NARCAN) injection 0.2 mg(Linked Group 2) 0.2 mg, Intravenous, EVERY 2 MIN PRN, opioid reversal, Starting on Wed01/03/25 at 1640, Administer intravenous route when available and notify [...] 2 MIN PRN, opioid reversal, Starting on Wed01/03/25 at 1640, Administer intramuscular if an intravenous route is [...] 2 MIN PRN, opioid reversal, Starting on Wed01/03/25 at 1640, Administer intravenous route when available and notify [...] 2 MIN PRN, opioid reversal, Starting on Wed01/03/25 at 1640, Administer intramuscular if an intravenous route is [...] have not improved after 4 naloxone doses. ondansetron (ZOFRAN ODT) ODT tab 4 mg(Linked Group 3) 4 mg, Oral, EVERY 6 HOURS PRN, nausea/vomiting - 1st line, Starting on Wed01/02/25 at 1432, This is Step 1 of nausea and vomiting management. If nausea not resolved in 15 minutes, go to Step 2 prochlorperazine (COMPAZINE). With dry hands, peel back foil backing and gently remove tablet. Do not push oral disintegrating tablet through foil backing. Administer immediately on tongue and oral disintegrating tablet dissolves in seconds, then swallow with saliva. Liquid not required. ondansetron (ZOFRAN) injection 4 mg(Linked Group 3) 4 mg, Intravenous, EVERY 6 HOURS PRN, nausea/vomiting - 1st line, Administer over 2-5 Minutes, Starting on Wed01/02/25 at 1432, Give IF patient unable to tolerate oral medication. This is Step 1 of nausea and vomiting management. If nausea not resolved in 15 minutes, go to Step 2 prochlorperazine (COMPAZINE). Patient is already receiving anticoagulation with heparin, enoxaparin (LOVENOX), warfarin (COUMADIN) or other anticoagulant medication CONTINUOUS PRN, Starting on Wed01/02/25 at 1432, Until [place] 01/04/25 at 1346 polyethylene glycol (MIRALAX) Packet 17 g 17 g, Oral, 2 TIMES DAILY PRN, constipation, Starting on Wed01/02/25 at 1432, IF more than 1 constipation PRN medication [...] out. prochlorperazine (COMPAZINE) injection 10 mg(Linked Group 4) 10 mg, Intravenous, EVERY 6 HOURS PRN, nausea/vomiting - 2nd line, Administer over 1-2 Minutes, Starting on Wed01/02/25 at 1432, IF patient unable to tolerate oral medication. This is Step 2 of nausea and vomiting management. Give if nausea not resolved 15 minutes after giving ondansetron (ZOFRAN). prochlorperazine (COMPAZINE) tablet 10 mg(Linked Group 4) 10 mg, Oral, EVERY 6 HOURS PRN, nausea/vomiting - 2nd line, Starting on Wed01/02/25 at 1432, This is Step 2 of nausea and vomiting management. Give if nausea not resolved 15 minutes after giving ondansetron (ZOFRAN). senna-docusate (SENOKOT-S/PERICOLACE) 8.6-50 MG per tablet 1 tablet(Linked Group 5) 1 tablet, Oral, 2 TIMES DAILY PRN, constipation, Starting on Wed01/02/25 at 1432, If no bowel movement in 24 hours, [...] 8.6-50 MG per tablet 2 tablet(Linked Group 5) 2 tablet, Oral, 2 TIMES DAILY PRN, constipation, Starting on Wed01/02/25 at 1432, IF more than 1 constipation PRN medication [...] or to lock dormant line, Starting on Wed01/02/25 at 1432 No Frequency Medication Order 01/02/2025 01/03/2025 01/04/2025 sodium chloride 0.9 % infusion (COMPLETED) Jaja Patel: cabinet override, 1 dose, Starting on Wed01/03/25 at 1202, Until Wed01/03/25 at 1329 1329 ($New Bag - Provider: Jaja Patel RN - Comment: used for blood transfusion) Linked Groups Order Group 1: hydromorphone (DILAUDID) injection 2 mgJump to med 2 mg, Intravenous, EVERY 2 HOURS PRN, severe pain, Starting on Wed01/03/25 at 1641, Hold if patient unresponsive or severe decreased responsiveness Group 2: naloxone (NARCAN) injection 0.2 mgJump to med 0.2 mg, Intravenous, EVERY 2 MIN PRN, opioid reversal, Starting on Wed01/03/25 at 1640, Administer intravenous route when available and notify [...] 2 MIN PRN, opioid reversal, Starting on Wed01/03/25 at 1640, Administer intravenous route when available and notify [...] 2 MIN PRN, opioid reversal, Starting on Wed01/03/25 at 1640, Administer intramuscular if an intravenous route is [...] 2 MIN PRN, opioid reversal, Starting on Wed01/03/25 at 1640, Administer intramuscular if an intravenous route is [...] have not improved after 4 naloxone doses. Group 3: ondansetron (ZOFRAN ODT) ODT tab 4 mgJump to med 4 mg, Oral, EVERY 6 HOURS PRN, nausea/vomiting - 1st line, Starting on Wed01/02/25 at 1432, This is Step 1 of nausea and [...] line, Administer over 2-5 Minutes, Starting on Wed01/02/25 at 1432, Give IF patient unable to tolerate oral medication. This is Step 1 of nausea and vomiting management. If nausea not resolved in 15 minutes, go to Step 2 prochlorperazine (COMPAZINE). Group 4: prochlorperazine (COMPAZINE) injection 10 mgJump to med 10 mg, Intravenous, EVERY 6 HOURS PRN, nausea/vomiting - 2nd line, Administer over 1-2 Minutes, Starting on Wed01/02/25 at 1432, IF patient unable to tolerate oral medication. This is Step 2 of nausea and vomiting management. Give if nausea not resolved 15 minutes after giving ondansetron (ZOFRAN). Or prochlorperazine (COMPAZINE) tablet 10 mgJump to med 10 mg, Oral, EVERY 6 HOURS PRN, nausea/vomiting - 2nd line, Starting on Wed01/02/25 at 1432, This is Step 2 of nausea and vomiting management. Give if nausea not resolved 15 minutes after giving ondansetron (ZOFRAN). Group 5: senna-docusate (SENOKOT-S/PERICOLACE) 8.6-50 MG per tablet 1 tabletJump to med 1 tablet, Oral, 2 TIMES DAILY PRN, constipation, Starting on Wed01/02/25 at 1432, If no bowel movement in 24 hours, [...] 2 TIMES DAILY PRN, constipation, Starting on Wed01/02/25 at 1432, IF more than 1 constipation PRN medication is ordered, administer step-barriga as indicated, moving to the next step ONLY if prior step ineffective. Step 1: senna-docusate (SENOKOT-S; PERICOLACE) OR bisacodyl (DULCOLAX) EC tablet Step 2: polyethylene glycol (MIRALAX/GLYCOLAX) Step 3: bisacodyl (DULCOLAX) suppository Step 4: enema Hold for loose stools. documented in this encounter Care Teams Lard Bleacher Relationship Specialty Start Date End Date Veronica Joseph MD [address] [place] [address] PCP - General Family Medicine 06/18/24 Elvira Ramseyc Medical Student 04/03/24 Case Samuel MD [address] [place] [address] [address], [address] [place] [address] Assigned Pediatric Specialist Provider 05/18/24 Juhi Benson, SOFIA Specialty Assessor Hematology & Oncology 05/29/24 Olinda Vora APRN MEDICAL ACCOUNTANT [address] [place] [id number] Assigned Cancer Care Provider 08/16/24 Stiven Stanley LP [address] [place] [address] Psychologist PSYCHOLOGIST CLINICAL 10/25/24 Star Galarza MD [facility] [address] [place] [address] Home Infusion Following Provider Infectious Diseases 11/07/24 Aliyah Hudson, SOFIA Home Infusion Pollution Control Technician 11/16/24 01/04/25 documented as of this encounter
--- OUTSIDE RECORDS SUMMARY | 2025-01-05 21:36 | XMS_ITS | Encounter Summary ---
Author Organization [facility] Address [address] [place] [address] Care Team Providers Care Apparel Rental Clerk Name Role Phone Roxy Mor Unavailable Unavailable Case Samuel MD Unavailable [phone] Juhi Benson RN Unavailable Unavailable Veronica Joseph MD Primary Care Provider [phone] Olinda Vora APRN FIRST OFFICER AND FLIGHT INSTRUCTOR Unavailable [phone] Stiven Stanley Unavailable Star Galarza MD Unavailable [phone] Reason for Visit * Reason Comments Sickle Cell Pain Crisis * Auth/Cert Specialty Diagnoses / Procedures Referred By Shahid pendleton Referred To Contact EMERGENCY MEDICINE Diagnoses Sickle cell pain crisis (H) Stiven Ramirez MD [address] [place] [address] Phone: tel: fax: [facility] Emergency Department [address] [place] [address] Phone: tel: Referral ID Status Reason Start Date Expiration Date Visits Re quested Visits Authorized [id number] 1 1 Encounter Details Date Type Department Care Team ([facility] st Contact Info) Description 01/05/2025 9:36 PM CDT - 01/06/2025 12:43 AM CDT Emergency [facility] Emergency Department [address] [place] [address] Shauna Calle DO [address] [place] [id number] Keshia Schofield MD [address] [place] [address] Sickle cell pain crisis (H) (Primary Dx) [...] in an overnight half-way, or couch-surfing.) Yes 11/09/2024 Are you worried [...] on file Legal Sex Female 8:25 AM CARTOONIST SPECIAL EFFECTS Gender Identity Not on file Sexual Orientation Not on file documented as of this encounter Last Filed Vital Signs Vital Sign Reading Time Taken Comments Blood Pressure 102/70 01/05/2025 8:22 PM CDT Pulse 86 01/06/2025 12:29 AM CDT Temperature 37.3 C (99.2 F) 01/05/2025 8:22 PM CDT Respiratory Rate 16 01/05/2025 8:22 PM CDT Oxygen Saturation 97% 01/05/2025 8:22 PM CDT Inhaled Oxygen Concentration - - Weight - - Height - - Body Mass Index - - documented in this encounter Discharge Instructions * Discharge Instructions* Keshia Schofield MD - 01/06/2025 12:31 AM CDT .Thank you for your patience today. Please follow-up [...] 05/01/2024 naloxone (NARCAN) 4 MG/0.1ML nasal spray [place] 1 spray (4 mg) into one nostril [...] by mouth 2 times daily. 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 1 Week supply. No early refills 24 tablet 12/28/2024 01/09/20 25 documented as of this encounter Consult Notes * Reyna Henry RN - 01/05/2025 10:18 PM CDTAssociated Order(s): CONSULT FOR INPATIENT VASCULAR ACCESS CARE Summary: PIV placed by ED RN Consult received for Vascular Access Team. See LDA for details. For additional needs place Consultfor Inpatient Vascular Access Care [id number] order in [facility]. documented in this encounter ED Notes * Keshia Schofield MD - 01/06/2025 12:31 AM CDT Emergency Department I-PASS Sign-out Illness Severity: Stable Patient Summary: 29 year old female with pertinent PMH of sickle cell who presented with pain crisis arms, back, legs (typical locations). No acute chest symptoms. Just discharged yesterday. Needed a transfusion ED Course/treatment plan: Pain plan Hemoglobin improved Clinical Impression: No diagnosis found. Edited by: Shauna Calle DO at 01/05/2025 [id number] Action List: -To do: - pain plan Labs: retic Situational Awareness & Contingency Planning: Code Status (Most recent): Prior Disposition: likely to be discharged Edited by: Shuana Calle DO at 01/05/2025 [id number] Synthesis & Events after sign-out: Reevaluation patient reports significant improvement of symptoms after pain medications per care plan and is requesting discharge home. Improvement of Tachycardia with a heart rate of 86. Patient feels comfortable discharge, encourage close outpatient follow-up. Strict return precautions discussed. Patient understands and agrees to the plan. Keshia Schofield MD Emergency Medicine Keshia Schofield MD 01/06/25 0032 * Hortencia Osman RN - 01/05/2025 10:17 PM CDT Bed: [facility] Expected date: Expected time: Means of arrival: Comments: CG * Yelitza Manriquez RN - 01/05/2025 8:20 PM CDT Ambulatory to ED with complaints of sickle cell pain. Pt describes pain as similar to previous episodes of sickle cell pain crisis. PT denies chest pain, sob. 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, AVN left hip, retinopathy (right eye), chronic pain, and cholelithiasis s/p cholecystectomy (09/08/24) Triage Assessment (Adult) Row Name 01/05/252019 Triage Assessment Airway WDL WDL Respiratory WDL Respiratory WDL WDL Skin Circulation/Temperature WDL Skin Circulation/Temperature WDL WDL Cardiac WDL Cardiac WDL X Peripheral/Neurovascular WDL Peripheral Neurovascular WDL WDL Cognitive/Neuro/Behavioral WDL Cognitive/Neuro/Behavioral WDL WDL documented in this encounter Plan of Treatment Upcoming Encounters Date Type Department Care Team (Late st Contact Info) Description 02/15/2025 10:30 AM CDT Lab [facility] [address] [address] Olinda Vora APRN FIRST OFFICER AND FLIGHT INSTRUCTOR [address] [place] [address] [phone] 02/15/2025 11:00 AM CDT Oncology Visit [facility] [address] [address] Olinda Vora APRN FIRST OFFICER AND FLIGHT INSTRUCTOR [address] [place] [phone] 04/09/2025 3:00 PM CARTOONIST SPECIAL EFFECTS Lab [facility] [address] [address] Case Samuel MD [address] [place] [address], [address] [place] [address] 04/09/2025 3:30 PM C[employer]IST [employer] EFFECTS Oncology Visit [facility] [address] [place] [phone] Case Samuel MD [address] [facility] [address], [address] [place] [address] documented as of this encounter Goals Goal [...] Comments CBC WITH PLATELETS AND DIFFERENTIAL STAT 01/05/2025 10:15 PM CDT CBC WITH PLATELETS AND DIFFERENTIAL (LIMITED OCCURRENCES) STAT 01/05/2025 10:15 PM CDT COMPREHENSIVE METABOLIC PANEL (LIMITED OCCURRENCES) STAT 01/05/2025 10:15 PM CDT RETICULOCYTE COUNT STAT 01/05/2025 10 :15 PM CDT documented in this encounter Results * (ABNORMAL) CBC with platelets and differential (01/05/2025 10:15 PM CDT) WBC Count 9.95 4.00 - 11.00 10e3/uL 01/05/2025 10:33 PM CDT [facility] RBC Count 3.21(L) 3.80 - 5.20 10e6/uL 01/05/2025 10:33 PM CDT [facility] Hemoglobin 10.7(L) 11.7 - 15.7 g/dL 01/05/2025 10:33 PM CDT [facility] Hematocrit 30.9(L) 35.0 - 47.0 % 01/05/2025 10:33 PM CDT [facility] MCV 96.3 78.0 - 100.0 fL 01/05/2025 10:33 PM CDT [facility] MCH 33.3(H) 26.5 - 33.0 pg 01/05/2025 10:33 PM CDT [facility] MCHC 34.6 31.5 - 36.5 g/dL 01/05/2025 10:33 PM CDT [facility] RDW 18.6(H) 10.0 - 15.0 % 01/05/2025 10:33 PM CDT [facility] Platelet Count 467(H) 150 - 450 10e3/uL 01/05/2025 10:33 PM CDT [facility] % Neutrophils 51.9 % 01/05/2025 10:33 PM CDT [facility] % Lymphocytes 36.2 % 01/05/2025 10:33 PM CDT [facility] % Monocytes 10.1 % 01/05/2025 10:33 PM CDT [facility] % Eosinophils 0.2 % 01/05/2025 10:33 PM CDT [facility] % Basophils 0.9 % 01/05/2025 10:33 PM CDT [facility] % Immature Granulocytes 0.7 % 01/05/2025 10:33 PM CDT [facility] NRBCs per 100 WBC 1.0(H) <1.0 /100 025 10:33 PM CDT [facility] Absolute Neutrophils 5.17 1.60 - 8.30 10e3/uL 01/05/2025 10:33 PM CDT [facility] Absolute Lymphocytes 3.60 0.80 - 5.30 10e3/uL 01/05/2025 10:33 PM CDT [facility] Absolute Monocytes 1.00 0.00 - 1.30 10e3/uL 01/05/2025 10:33 PM CDT [facility] Absolute Eosinophils <0.03 0.00 - 0.70 10e3/uL 01/05/2025 10:33 PM CDT [facility] Absolute Basophils 0.09 0.00 - 0.20 10e3/uL 01/05/2025 10:33 PM CDT [facility] Absolute Immature Granulocytes 0.07 <=0.40 10e3/uL 01/05/2025 10:33 PM CDT [facility] Absolute NRBCs 0.10 10e3/uL 01/05/2025 10:33 PM CDT [facility] Blood BLOOD SPECIMEN / Unknown Venipuncture / Unknown 01/05/2025 10:15 PM CDT 01/05/2025 10:27 PM CDT Jemal Ramos PA-C LAB - BLOOD ORDERABLES Fi nal Result [facility] [place] [facility] [address] [facility], Room [address] [place], [place] [phone] * (ABNORMAL) Comprehensive Metabolic Panel (Limited Occurrences) (01/05/2025 10:15 PM CDT) Sodium 137 135 - 145 mmol/L 01/05/2025 10:58 PM CDT [facility] Potassium 4.5 3.4 - 5.3 mmol/L 01/05/2025 10:58 PM CDT [facility] Carbon Dioxide (CO2) 20(L) 22 - 29 mmol/L 01/05/2025 10:58 PM CDT [facility] Anion Gap 12 7 - 15 mmol/L 01/05/2025 10:58 PM CDT [facility] Urea Nitrogen 18.7 6.0 - 20.0 mg/dL 01/05/2025 10:58 PM CDT [facility] Creatinine 0.79 0.51 - 0.95 mg/dL 01/05/2025 10:58 PM CDT [facility] GFR Estimate >90 >60 mL/min/1.7 3m2 01/05/2025 10:58 PM CDT [facility] Comment:eGFR calculated usin 2020 CKD-EPI equation. Calcium 9.7 8.8 - 10.4 mg/dL 01/05/2025 10:58 PM CDT [facility] Chloride 105 98 - 107 mmol/L 01/05/2025 10:58 PM CDT [facility] Glucose 107(H) 70 - 99 mg/dL 01/05/2025 10:58 PM CDT [facility] Alkaline Phosphatase 143 40 - 150 U/L 01/05/2025 10:58 PM CDT [facility] AST 51(H) 0 - 45 U/L 01/05/2025 10:58 PM CDT [facility] ALT 45 0 - 50 U/L 01/05/2025 10:58 PM CDT [facility] Protein Total 9.1(H) 6.4 - 8.3 g/dL 01/05/2025 10:58 PM CDT [facility] Albumin 4.8 3.5 - 5.2 g/dL 01/05/2025 10:58 PM CDT [facility] Bilirubin Total 1.8(H) <=1.2 mg/dL 01/05/2025 10:58 PM CDT [facility] Blood BLOOD SPECIMEN / Unknown Venipuncture / Unknown 01/05/2025 10:15 PM CDT 01/05/2025 10:27 PM CDT Jemal Ramos PA-C LAB - BLOOD ORDERABLES Fi nal Result [facility] [place] [facility] [address] [facility], [address] [place] [phone] * (ABNORMAL) Reticulocyte count (01/05/2025 10:15 PM CDT) % Reticulocyte 9.65(H) 0.50 - 2.00 % 01/06/2025 2:07 AM CDT [facility] Absolute Reticulocyte 0.3030(H) 0.0250 - 0.0950 10e6/uL 01/06/2025 2:07 AM CDT [facility] Blood BLOOD SPECIMEN / Unknown Venipuncture / Unknown 01/05/2025 10:15 PM CDT 01/05/2025 10:27 PM CDT us Jemal Ramos PA-C LAB - BLOOD ORDERABLES Fi nal Result [facility] [place] [facility] [address] [facility], [address] [phone], [facility] documented in this encounter Visit Diagnoses Diagnosis 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 documented in this encounter Administered Medications Inactive Administered Medications - up to 3 most recent administrations Medication Order MAR Action Action Date Dose Rate Site hydromorphone (DILAUDID) injection 2 mg 2 mg, Intravenous, EVERY 1 HOUR PRN, severe pain, Starting on Wed01/05/25 at 2134, For 3 doses $Given 01/06/2025 12:25 AM CDT 2 mg $Given 01/05/2025 11:25 PM CDT 2 mg $Given 01/05/2025 10:17 PM CDT 2 mg lactated ringers BOLUS 500 mL Intravenous, 500 mL, EVERY 1 HOUR PRN, at 500 mL/hr, Administer over 1 Hours, other, pain, Starting on Wed01/05/25 at 2134, For 2 doses ondansetron (ZOFRAN) injection 4 mg 4 mg, Intravenous, ONCE, Administer over 2-5 Minutes, On Wed01/05/25 at 2140, For 1 dose $Given 01/05/2025 10:18 PM CDT 4 mg documented in this encounter Active and Recently Administered Medications Times are shown in CDT. Scheduled Medication Order 01/04/2025 01/05/2025 01/06/2025 ondansetron (ZOFRAN) injection 4 mg (COMPLETED) 4 mg, Intravenous, ONCE, Administer over 2-5 Minutes, On Wed01/05/25 at 2140, For 1 dose 2217 ($Given - Provider: Sally Price RN) PRN Medication Order 01/04/2025 01/05/2025 01/06/2025 hydromorphone (DILAUDID) injection 2 mg (COMPLETED) 2 mg, Intravenous, EVERY 1 HOUR PRN, severe pain, Starting on Wed01/05/25 at 2134, For 3 doses 2216 ($Given - Provider: Mirian Price RN)8166 ($Given - Provider: Milagros Lofton, RN) 0025 ($Given - Provider: Milagros Lofton, RN) lactated ringers BOLUS 500 mL Intravenous, 500 mL, EVERY 1 HOUR PRN, at 500 mL/hr, Administer over 1 Hours, other, pain, Starting on Wed01/05/25 at 2134, For 2 doses documented in this encounter Care Teams Apparel Rental Clerk Relationship Specialty Start Date End Date Veronica Joseph MD [address] [place] [address] PCP - General Family Medicine 06/18/24 Elvira Ramseyc Medical Student 04/03/24 Case Samuel MD [address] [facility] [address], [address] [place], [place] [phone] Assigned Pediatric Specialist Provider 05/18/24 Juhi Benson, SOFIA Specialty Anode Crew Supervisor Hematology & Oncology 05/29/24 Olinda Vora APRN FIRST OFFICER AND FLIGHT INSTRUCTOR [address] [place], [place] [address] Assigned Cancer Care Provider 08/16/24 Stiven Stanley LP [address] [place] [address] Psychologist PSYCHOLOGIST CLINICAL 10/25/24 Star Galarza MD [employer] [address] [place], [place] [id number] Home Infusion Following Provider Infectious Diseases 11/07/24 documented as of this encounter
--- OUTSIDE RECORDS SUMMARY | 2025-01-06 20:36 | XMS_ITS | Encounter Summary ---
Author Organization [facility] Address [address] [place] [address] Care Team Providers Care Block Greaser Name Role Phone Roxy Mor Unavailable Unavailable Case Samuel MD Unavailable [phone] Juhi Benson RN Unavailable Unavailable Veronica Joseph MD Primary Care Provider [phone] Olinda Vora APRN SENIOR LIBRARIAN Unavailable [phone] Stiven Stanley Unavailable Star Galarza MD Unavailable [phone] Reason for Visit * Reason Comments Sickle Cell Pain Crisis * Auth/Cert Specialty Diagnoses / Procedures Referred By Shahid pendleton Referred To Contact EMERGENCY MEDICINE Diagnoses Sickle cell pain crisis (H) Stiven Ramirez MD [address] [place] [address] Phone: tel: fax: Formerly [facility] Emergency Department [address] [place] [address] Phone: tel: Referral ID Status Reason Start Date Expiration Date Visits Re quested Visits Authorized [id number] 1 1 Encounter Details Date Type Department Care Team ([facility] st Contact Info) Description 01/06/2025 8:36 PM CDT - 01/06/2025 11:12 PM CDT Emergency Formerly [facility] Emergency Department [address] [place] [address] Alex Morton MD [address] [place], [place] [address] Sickle cell pain crisis (H) (Primary Dx) [...] [place], or [facility]-[place] Yes 11/09/2024 Are you worried [...] on file Legal Sex Female 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 Gender Identity Not on file Sexual Orientation Not on file documented as of this encounter Last Filed Vital Signs Vital Sign Reading Time Taken Comments Blood Pressure 105/59 01/06/2025 11:12 PM CDT Pulse 77 01/06/2025 11:12 PM CDT Temperature 36.7 C (98 F) 01/06/2025 11:12 PM CDT Respiratory Rate 17 01/06/2025 11:12 PM CDT Oxygen Saturation 100% 01/06/2025 11:12 PM CDT Inhaled Oxygen Concentration - - Weight 49.9 kg (110 lb) 01/06/2025 8:43 PM CDT Height 154.9 cm (5' 0.98) 01/06/2025 8:43 PM CD T Body Mass Index 20.8 01/06/2025 8:43 PM CDT documented in this encounter Discharge Instructions * Discharge Instructions* Alex Morton MD - 01/06/2025 11:07 PM CDT Thank you for coming to the [facility]. You were seen after a sickle cell pain crisis. We are glad you are feeling better. Please continue to follow-up closely with your hematology team and return to the ED for concerning symptoms. documented in this encounter Medications at Time [...] naloxone (NARCAN) 4 MG/0.1ML nasal spray [place] 1 spray (4 mg) into one nostril [...] Consult Notes * Reyna Henry RN - 01/06/2025 9:20 PM CDTAssociated Order(s): CONSULT FOR INPATIENT VASCULAR ACCESS CARE Summary: PIV with lab draw Consult received for Vascular Access Team. See LDA for details. For additional needs place Consultfor Inpatient Vascular Access Care [id number] order in [facility]. documented in this encounter ED Notes * Hortencia Osman RN - 01/06/2025 8:44 PM CDT Patient arrives ambulatory to triage for sickle cell pain crisis * Alex Morton MD - 01/06/2025 8:40 PM CDT Images from the original note were not included. 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 Patient states she is feeling warm because of pain but denies fever chills rigors. No chest pain shortness of breath or cough. Reports recent blood transfusion a few days ago. Otherwise endorsing typical sickle cell pain. 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 Physical Exam BP: 107/65 Pulse: 98 Temp: 98.2 ??F (36.8 ??C) Resp: 18 Height: 154.9 cm (5' 0.98) Weight: 49.9 kg (110 lb) SpO2: 98 % Physical Exam Vital Signs Reviewed Gen: [...] or performed during the hospital encounter of 01/06/25 Comprehensive Metabolic Panel (Limited Occurrences) Result Value Ref Range Sodium 137 135 - 145 mmol/L Potassium 4.6 3.4 - 5.3 mmol/L Carbon Dioxide (CO2) 20 (L) 22 - 29 mmol/L Anion Gap 14 7 - 15 mmol/L Urea Nitrogen 15.3 6.0 - 20.0 mg/dL Creatinine 0.79 0.51 - 0.95 mg/dL GFR Estimate >90 >60 mL/min/1.73m2 Calcium 9.5 8.8 - 10.4 mg/dL Chloride 103 98 - 107 mmol/L Glucose 109 (H) 70 - 99 mg/dL Alkaline Phosphatase 133 40 - 150 U/L AST 52 (H) 0 - 45 U/L ALT 47 0 - 50 U/L Protein Total 9.1 (H) 6.4 - 8.3 g/dL Albumin 4.9 3.5 - 5.2 g/dL Bilirubin Total 1.8 (H) <=1.2 mg/dL Reticulocyte count Result Value Ref Range % Reticulocyte 9.01 (H) 0.50 - 2.00 % Absolute Reticulocyte 0.2812 (H) 0.0250 - 0.0950 10e6/uL CBC with platelets and differential Result Value Ref Range WBC Count 8.10 4.00 - 11.00 10e3/uL RBC Count 3.13 (L) 3.80 - 5.20 10e6/uL Hemoglobin 10.5 (L) 11.7 - 15.7 g/dL Hematocrit 30.4 (L) 35.0 - 47.0 % MCV 97.1 78.0 - 100.0 fL MCH 33.5 (H) 26.5 - 33.0 pg MCHC 34.5 31.5 - 36.5 g/dL RDW 18.2 (H) 10.0 - 15.0 % Platelet Count 512 (H) 150 - 450 10e3/uL % Neutrophils 64.7 % % Lymphocytes 23.3 % % Monocytes 9.8 % % Eosinophils 0.4 % % Basophils 1.1 % % Immature Granulocytes 0.7 % NRBCs per 100 WBC 3.0 (H) <1.0 /100 Absolute Neutrophils 5.24 1.60 - 8.30 10e3/uL Absolute Lymphocytes 1.89 0.80 - 5.30 10e3/uL Absolute Monocytes 0.79 0.00 - 1.30 10e3/uL Absolute Eosinophils 0.03 0.00 - 0.70 10e3/uL Absolute Basophils 0.09 0.00 - 0.20 10e3/uL Absolute Immature Granulocytes 0.06 <=0.40 10e3/uL Absolute NRBCs 0.24 10e3/uL Adult Type and Screen Result Value Ref Range ABO/RH(D) A POS Antibody Screen Negative Negative SPECIMEN EXPIRATION DATE 01/09/2025 11:59:00 PM CDT Medications lactated ringers BOLUS 1,000 mL (0 mLs Intravenous Stopped 01/06/252306) ondansetron (ZOFRAN) injection 8 mg (8 mg Intravenous Not Given 01/06/252305) acetaminophen (TYLENOL) tablet 1,000 mg (1,000 mg Oral Not Given 01/06/252100) Critical care was not performed. Medical Decision [...] Hernández is a 29 year old female well known to this ED with a history notable for sickle cell disease complicated by frequent pain crises and PE (on Eliquis) who presents to the ED today with sickle cell pain afebrile with reassuring vitals. Denies symptoms of acute chest. Sickle cell care plan reviewed and initiated. Patient states she can wait for vascular access team. Patient's labs are notable for improved hemoglobin otherwise no significant acute abnormalities requiring hospitalization or further intervention in the ED. I was flagged down by the patient from her hallway bed and she asked to discharge. Upon reassessment she states she is feeling better and would like to go home. She is keenly aware of return precautions and outpatient follow-up needs and has no further questions comments or concerns at time of discharge. I have reviewed the nursing notes. I have reviewed the findings, diagnosis, plan and need for follow up with the patient. Discharge Medication List as of 01/06/2025 11:07 PM Final diagnoses: Sickle cell pain crisis (H) Alex Morton Jr., MD [facility] EM[facility]GENCY DEPARTMENT 01/06/2025 Alex Morton MD 01/07/25 1506 documented in this encounter Plan of Treatment Upcoming Encounters Date Type Department Care Team (Late st Contact Info) Description 02/15/2025 10:30 AM CDT Lab [facility] Cancer [address] [phone] Olinda Vora APRN SENIOR LIBRARIAN [address] [place] [address] 02/15/2025 11:00 AM CDT Oncology Visit [facility] [address] [phone] Olinda Vora APRN SENIOR LIBRARIAN [address] [place] [address] 04/09/2025 3:00 PM 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 INSTRUMENT MAKER 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 Lab [facility] [address] [phone] Case Samuel MD [address] [place] [address], [address] [place], [place] [id number] 04/09/2025 3:30 PM FRETTED INSTRUMENT MAKER HAND Oncology Visit [facility] [address] [phone] Case Samuel MD [address] [place] [address], [address] [place], [place] [phone] documented as of this encounter Goals Goal [...] Procedure Name Priority Date/Time Associated Diagnosis Comments TYPE AND SCREEN, ADULT STAT 9:56 PM CDT ABO/RH TYPE AND SCREEN STAT 9:56 PM CDT CBC WITH PLATELETS AND DIFFERENTIAL STAT 01/06/2025 8:56 PM CDT CBC WITH PLATELETS AND DIFFERENTIAL (LIMITED OCCURRENCES) STAT 01/06/2025 8:56 PM CDT COMPREHENSIVE METABOLIC PANEL (LIMITED OCCURRENCES) STAT 01/06/2025 8:56 PM CDT RETICULOCYTE COUNT STAT 01/06/2025 8: 56 PM CDT documented in this encounter Results * Adult Type and Screen (01/06/2025 9:56 PM CDT) ABO/RH(D) A POS 01/06/2025 9:46 PM CDT [facility] Antibody Screen Negative Negative 01/06/2025 9:46 PM CDT [facility] Comment:Current antibody scr een is negative. Patient has a history of antibody(ies). A delay in compatible red blood cells may occur. SPECIMEN EXPIRATION DATE 01/09/2025 11:59:00 PM CDT 01/06/2025 9:46 PM CDT [facility] Blood BLOOD SPECIMEN / Unknown Venipuncture / Unknown 01/06/2025 9:56 PM CDT 01/06/2025 10:01 PM CDT us Alex Morton MD LAB - BLOOD BANK TEST ORDER Final Result BLOOD BANK [address] [place] [address], [facility] * (ABNORMAL) CBC with platelets and differential (01/06/2025 8:56 PM CDT) WBC Count 8.10 4.00 - 11.00 10e3/uL 01/06/2025 9:10 PM CDT [facility] RBC Count 3.13(L) 3.80 - 5.20 10e6/uL 01/06/2025 9:10 PM CDT [facility] Hemoglobin 10.5(L) 11.7 - 15.7 g/dL 01/06/2025 9:10 PM CDT [facility] Hematocrit 30.4(L) 35.0 - 47.0 % 01/06/2025 9:10 PM CDT [facility] MCV 97.1 78.0 - 100.0 fL 01/06/2025 9:10 PM CDT [facility] MCH 33.5(H) 26.5 - 33.0 pg 01/06/2025 9:10 PM CDT [facility] MCHC 34.5 31.5 - 36.5 g/dL 01/06/2025 9:10 PM CDT [facility] RDW 18.2(H) 10.0 - 15.0 % 01/06/2025 9:10 PM CDT [facility] Platelet Count 512(H) 150 - 450 10e3/uL 01/06/2025 9:10 PM CDT [facility] % Neutrophils 64.7 % 01/06/2025 9:10 PM CDT [facility] % Lymphocytes 23.3 % 01/06/2025 9:10 PM CDT [facility] % Monocytes 9.8 % 01/06/2025 9:10 PM CDT [facility] % Eosinophils 0.4 % 01/06/2025 9:10 PM CDT [facility] % Basophils 1.1 % 01/06/2025 9:10 PM CDT [facility] % Immature Granulocytes 0.7 % 01/06/2025 9:10 PM CDT [facility] NRBCs per 100 WBC 3.0(H) <1.0 /100 025 9:10 PM CDT [facility] Absolute Neutrophils 5.24 1.60 - 8.30 10e3/uL 01/06/2025 9:10 PM CDT [facility] Absolute Lymphocytes 1.89 0.80 - 5.30 10e3/uL 01/06/2025 9:10 PM CDT [facility] Absolute Monocytes 0.79 0.00 - 1.30 10e3/uL 01/06/2025 9:10 PM CDT [facility] Absolute Eosinophils 0.03 0.00 - 0.70 10e3/uL 01/06/2025 9:10 PM CDT [facility] Absolute Basophils 0.09 0.00 - 0.20 10e3/uL 01/06/2025 9:10 PM CDT [facility] Absolute Immature Granulocytes 0.06 <=0.40 10e3/uL 01/06/2025 9:10 PM CDT [facility] Absolute NRBCs 0.24 e3/uL 01/06/2025 9:10 PM CDT [facility] Blood BLOOD SPECIMEN / Unknown Venipuncture / Unknown 01/06/2025 8:56 PM CDT 01/06/2025 9:04 PM CDT Alex Morton MD LAB - BLOOD ORDERABLES Final Result [facility] [place] [facility] [address] [facility], [address] [place] [phone] * (ABNORMAL) Reticulocyte count (01/06/2025 8:56 PM CDT) % Reticulocyte 9.01(H) 0.50 - 2.00 % 01/06/2025 9:39 PM CDT [facility] Absolute Reticulocyte 0.2812(H) 0.0250 - 0.0950 10e6/uL 01/06/2025 9:39 PM CDT [facility] Blood BLOOD SPECIMEN / Unknown Venipuncture / Unknown 01/06/2025 8:56 PM CDT 01/06/2025 9:04 PM CDT Alex Morton MD LAB - BLOOD ORDERABLES Final Result [facility] [place] [facility] [address] [facility], [address] [place] [address], [facility] * (ABNORMAL) Comprehensive Metabolic Panel (Limited Occurrences) (01/06/2025 8:56 PM CDT) Sodium 137 135 - 145 mmol/L 01/06/2025 9:32 PM CDT [facility] Potassium 4.6 3.4 - 5.3 mmol/L 01/06/2025 9:32 PM CDT [facility] Carbon Dioxide (CO2) 20(L) 22 - 29 mmol/L 01/06/2025 9:32 PM CDT [facility] Anion Gap 14 7 - 15 mmol/L 01/06/2025 9:32 PM CDT [facility] Urea Nitrogen 15.3 6.0 - 20.0 mg/dL 01/06/2025 9:32 PM CDT [facility] Creatinine 0.79 0.51 - 0.95 mg/dL 01/06/2025 9:32 PM CDT [facility] GFR Estimate >90 >60 mL/min/1.7 3m2 01/06/2025 9:32 PM CDT [facility] Comment:eGFR calculated us2020 CKD-EPI equation. Calcium 9.5 8.8 - 10.4 mg/dL 01/06/2025 9:32 PM CDT [facility] Chloride 103 98 - 107 mmol/L 01/06/2025 9:32 PM CDT [facility] Glucose 109(H) 70 - 99 mg/dL 01/06/2025 9:32 PM CDT [facility] Alkaline Phosphatase 133 40 - 150 U/L 01/06/2025 9:32 PM CDT [facility] AST 52(H) 0 - 45 U/L 01/06/2025 9:32 PM CDT [facility] ALT 47 0 - 50 U/L 01/06/2025 9:32 PM CDT [facility] Protein Total 9.1(H) 6.4 - 8.3 g/dL 01/06/2025 9:32 PM CDT [facility] Albumin 4.9 3.5 - 5.2 g/dL 01/06/2025 9:32 PM CDT [facility] Bilirubin Total 1.8(H) <=1.2 mg/dL 01/06/2025 9:32 PM CDT [facility] Blood BLOOD SPECIMEN / Unknown Venipuncture / Unknown 01/06/2025 8:56 PM CDT 01/06/2025 9:04 PM CDT Alex Morton MD LAB - BLOOD ORDERABLES Final Result [facility] [place] [facility] [address] [facility], [address] [place] [phone] documented in this encounter Visit Diagnoses Diagnosis 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 documented in this encounter Administered Medications Inactive Administered Medications - up to 3 most recent administrations Medication Order MAR Action Action Date Dose Rate Site hydromorphone (DILAUDID) injection 2 mg 2 mg, Intravenous, EVERY 1 HOUR PRN, severe pain, Starting on 01/06/25 at 2041 $Given 01/06/2025 11:04 PM CDT 2 mg $Given 01/06/2025 10:04 PM CDT 2 mg $Given 01/06/2025 9:01 PM CDT 2 mg lactated ringers BOLUS 1,000 mL Intravenous, 1,000 mL, ONCE, at 500 mL/hr, Administer over 2 Hours, On 01/06/25 at 2044, For 1 dose $New Bag 01/06/2025 9:02 PM CDT 1,000 mLs 500 mL/hr documented in this encounter Active and Recently Administered Medications Times are shown in CDT. Scheduled Medication Order 01/04/2025 01/05/2025 01/06/2025 lactated ringers BOLUS 1,000 mL (COMPLETED) Intravenous, 1,000 mL, ONCE, at 500 mL/hr, Administer over 2 Hours, On 01/06/25 at 2044, For 1 dose 2101 ($New Bag - Pro vider: Oriana Marquis RN)2307 (Stopped - Provider: Oriana Marquis RN) PRN Medication Order 01/04/2025 01/05/2025 01/06/2025 hydromorphone (DILAUDID) injection 2 mg 2 mg, Intravenous, EVERY 1 HOUR PRN, severe pain, Starting on 01/06/25 at 2042 2101 ($Given - Provi nas: Oriana Marquis, RN)2204 ($Given - Provider: Oriana Marquis, RN)2304 ($Given - Provider: Oriana Marquis, RN) documented in this encounter Care Teams Block Greaser Relationship Specialty Start Date End Date Veronica Joseph MD [address] [place] [address] PCP - General Family Medicine 06/18/24 Roxy Mor Medical Student 04/03/24 Case Samuel MD [address] [facility] [address], [address] [place], [place] [address] Assigned Pediatric Specialist Provider 05/18/24 Juhi Benson, SOFIA Specialty Learning And Development Assistant Hematology & Oncology 05/29/24 Olinda Vora APRN SENIOR LIBRARIAN [address] [place] [address] Assigned Cancer Care Provider 08/16/24 Stiven Stanley LP [address] [place] [address] Psychologist PSYCHOLOGIST CLINICAL 10/25/24 Star Galarza MD [facility] [place] [address] Home Infusion Following Provider Infectious Diseases 11/07/24 documented as of this encounter
--- OUTSIDE RECORDS SUMMARY | 2025-01-07 12:56 | XMS_ITS | Encounter Summary ---
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 Here for pain regimen. Encounter Details Date Type Department Care Team (Late st Contact Info) Description 01/07/2025 12:56 PM CDT - 01/07/2025 3:45 PM CDT Emergency [facility] [address] [place] [id number] Jayden Godfrey M.D. [address] [place] [phone] Hb-SS Disease (Sickle Cell) Vaso-Occlusive Pain Crisis (HCC) (Primary Dx) Discharge Disposition: Home or Self Care Social History Tobacco Use Types Packs/Day Years Used Date Smoking Tobacco: Never Smokeless Tobacco: Never Alcohol Use Standard Drinks/Week Comments Never 0 (1 standard drink = 0.6 oz pur e alcohol) Comments No Sex and Gender Information Value Date Recorded Sex Assigned at Not on file Legal Sex Female 1:37 PM CDT Gender Identity Not on file Sexual Orientation Not on file documented as of this encounter Last Filed Vital Signs Vital Sign Reading Time Taken Comments Blood Pressure 105/60 01/07/2025 3:30 PM CDT Pulse 89 01/07/2025 3:45 PM CDT Temperature 36.8 C (98.2 F) 01/07/2025 1:00 PM CDT Respiratory Rate 18 01/07/2025 1:00 PM CDT Oxygen Saturation 100% 01/07/2025 3:45 PM CDT Inhaled Oxygen Concentration - - Weight - - Height - - Body Mass Index - - documented in this encounter Medications at Time of Discharge apixaban (Eliquis) 5 mg tablet Take 5 mg by mouth 2 (two) times a day. 5 FLUoxetine (PROzac) 40 mg capsule Take 40 mg by mouth daily. 5 folic acid 1 mg tablet Take 1 mg by mouth daily. HYDROmorphone (Dilaudid) 4 mg tablet Take 4 mg by mouth every 3 (three) hours as needed for pain. hydroxyurea (Hydrea) 500 mg capsule Take 2,000 mg by mouth daily. Take at the same time each day. ibuprofen 600 mg tablet Take 600 mg by mouth 3 (three) times a day. 0 multivitamin tablet Take 1 tablet by mouth daily. diphenhydrAMINE (BenadryL) 25 mg tablet Take 1-2 tablets by mouth every 6 (six) hours as needed for itching. EPINEPHrine 0.3 mg/0.3 mL injection syringe Inject 0.3 mg intramuscularly as needed. 1 fexofenadine (Karol) 60 mg tablet Take 60 mg by mouth as needed for allergies. 1 FLUoxetine (PROzac) 20 mg capsule Take 20 mg by mouth daily. 5 glutamine, sickle cell, (Endari) 5 gram powder in packet packet Take 30 g by mouth 2 (two) times a day. 1 naloxone (Narcan) 4 mg/actuation nasal spray Administer 4 mg into nostril(s) once. 5 ondansetron ODT (Zofran-ODT) 4 mg disintegrating tablet Dissolve 4 mg in the mouth every 8 (eight) hours as needed for nausea or vomiting. 5 polyethylene glycol (Miralax) 17 gram/dose oral powder Take 17 g by mouth daily as needed for constipation. 5 sennosides-docusate sodium (Senokot-S) 8.6-50 mg per tablet Take 2 tablets by mouth 2 (two) times a day as needed for constipation. 5 traZODone (DesyreL) 50 mg tablet Take 50 mg by mouth at bedtime. 1 documented as of this encounter ED Notes * Jayden Godfrey M.D. - 01/07/2025 1:18 PM CDT The patient verbally consented to an audio recording of their visit to assist with the completion of documentation. SUBJECTIVE CHIEF COMPLAINT/REASON FOR VISIT Sickle Cell Pain Crisis (Been going on for a couple days. Here for pain regimen.) HISTORY OF PRESENT ILLNESS History of Present Illness Gianna Hernández is a 29 year old female with sickle cell disease SS phenotype with a recenthistory of blood infection and sepsis who presents with pain in her back, legs, and arms. She has been experiencing pain in her back, legs, and arms for the past couple of days, rating it as an 'eight' on a scale of zero to ten. She has been taking Dilaudid 4 mg, with her last dose taken approximately four hours prior to the visit. She also experiences a little nausea. No vomiting, diarrhea, fever, chills, cough, or chest pain. She has a recent history of a blood infection and sepsis, which led to the removal of her PICC lineabout a week and a half ago. She was administering antibiotics through the PICC line, which she rodríguez completed, but her labs remained abnormal. An echocardiogram revealed masses on her heart, and a transesophageal echocardiogram was performed, though results are pending. She recently received a blood transfusion due to low hemoglobin levels, which have since improved to 10.5 g/dL. No recent contact with sick individuals and no swelling in her legs or arms. She does not smoke, drink alcohol, or use drugs. REVIEW OF SYSTEMS Constitutional: Negative for chills and fever. Respiratory: Negative for cough and shortness of breath. Cardiovascular: Negative for chest pain and leg swelling. Musculoskeletal: Positive for extremity pain. OBJECTIVE Initial Vitals Temperature 01/07/25 1300 36.8 ??C Pulse Rate 01/07/25 1300 97 Heart Rate -- Resp Rate 01/07/25 1300 18 Blood Pressure 01/07/25 1300 121/84 SpO2 01/07/25 1300 100 % Pain Score 01/07/25 1302 9 PHYSICAL EXAMINATION Constitutional: Nursing note and vitals reviewed. No distress. HENT: Head: Normocephalic and atraumatic. Mouth/Throat: Oropharynx is clear and moist. Mucous membranes are moist. Eyes: Conjunctivae and EOM are normal. Pupils are equal, round, and reactive to light. Neck: No thyromegaly present. Cardiovascular: Normal rate, regular rhythm and normal heart sounds. No murmur heard. Pulmonary/Chest: Effort normal and breath sounds normal. There is normal air entry. She has no wheezes. Abdominal: Soft. Bowel sounds are normal. exhibits no distension. There is no abdominal tenderness.There is no guarding. Musculoskeletal: General: Tenderness present. No deformity. Normal range of motion. Cervical back: Normal range of motion. Comments: She has some generalized tenderness of the arms or legs without specific swelling Neurological: Alert and oriented to person, place, and time. She has normal reflexes. Skin: Skin is warm and dry. No rash noted. Psychiatric: She has a normal mood and affect. Behavior is normal. ASSESSMENT/PLAN Medical Decision Making 29-year-old female with sickle cell disease presented with severe pain (8/10) in her back, legs, and arms for several days, following a recent hospitalization for sepsis and anemia requiring transfusion. Exam was notable for pain without fever, chills, chest pain, cough, or swelling. Recent labs from yesterday showed improved hemoglobin, and she has a known pain management plan. Sickle cell vaso-occlusive pain crisis - Administered Dilaudid 4 mg for pain - Administered Benadryl 25 mg for itching associated with Dilaudid - Administered Zofran 8 mg for nausea - Administered IV fluids (500 LR) - I do not think we need to redo her labs as they were just done yesterday She is feeling better. She feels able to be discharged now. I would recommend following with her Food Server and Primary Care Provider (PCP) as planned. Return to the Emergency Department with worsening symptoms. ED Course as of 01/07/25 154 Sun Jan 07, 2025 1541 She is feeling better and feels able to be discharged home Final Diagnoses: as of 01/07/25 154 Hb-SS Disease (Sickle Cell) Vaso-Occlusive Pain Crisis (HCC) Contact Information for Follow-ups Primary Care Provider Next Steps: Follow up Instructions: As scheduled HEMATOLOGY Provider Next Steps: Follow up Instructions: As planned Emergency Department Next Steps: Follow up Instructions: If symptoms worsen Jayden Godfrey M.D. 01/07/25 1543 documented in this encounter Plan of Treatment Not on file documented as of this encounter Visit Diagnoses Diagnosis Hb-SS Disease (Sickle Cell) Vaso-Occlusive Pain Crisis (HCC)- Primary documented in this encounter Administered Medications Inactive Administered Medications - up to 3 most recent administrations Medication Order MAR Action Action Date Dose Rate Site diphenhydrAMINE injection 25 mg (BenadryL) 25 mg, intravenous, Once, On 01/07/25 at 1319, For 1 dose Given 01/07/2025 1:36 PM CDT 25 mg HYDROmorphone injection 2 mg (Dilaudid) 2 mg, intravenous, Every 1 hour PRN, moderate pain or score 4-6 of 10, severe pain or score 7-10 of 10, Starting on 01/07/25 at 1317, For 3 doses Given 01/07/2025 3:35 PM CDT 2 mg Given 01/07/2025 2:35 PM CDT 2 mg Given 01/07/2025 1:36 PM CDT 2 mg Lactated Ringer's bolus 1,000 mL 1,000 mL, intravenous, at 500 mL/hr, Administer over 2 Hours, Once, On 01/07/25 at 1319, For 1 dose New Bag 01/07/2025 1:35 PM CDT 1,000 mL 500 mL/hr ondansetron (PF) injection 8 mg (Zofran) 8 mg, intravenous, Once, On 01/07/25 at 1319, For 1 dose Given 01/07/2025 1:36 PM CDT 8 mg sodium chloride 0.9 % injection 2-10 mL 2-10 mL, intravenous, As needed, line care, Starting on 01/07/25 at 1316 documented in this encounter Active and Recently Administered Medications Times are shown in CDT. Scheduled Medication Order 01/05/2025 01/06/2025 01/07/2025 diphenhydrAMINE injection 25 mg (BenadryL) (COMPLETED) 25 mg, intravenous, Once, On 9/14/25 at 1319, For 1 dose 1336 (Given - Provid er: Kailey Archer R.N.) Lactated Ringer's bolus 1,000 mL (COMPLETED) 1,000 mL, intravenous, at 500 mL/hr, Administer over 2 Hours, Once, On 01/07/25 at 1319, For 1 dose 1335 (New Bag - Prov ider: Kailey Archer R.N.)1434 (Stopped - Provider: Kailey Archer R.N.) ondansetron (PF) injection 8 mg (Zofran) (COMPLETED) 8 mg, intravenous, Once, On 01/07/25 at 1319, For 1 dose 1336 (Given - Provid er: Kailey Archer R.N.) PRN Medication Order 01/05/2025 01/06/2025 01/07/2025 HYDROmorphone injection 2 mg (Dilaudid) (COMPLETED) 2 mg, intravenous, Every 1 hour PRN, moderate pain or score 4-6 of 10, severe pain or score 7-10 of 10, Starting on 01/07/25 at 1317, For 3 doses 1336 (Given - Provid er: Kailey Archer R.N.)1435 (Given - Provider: Kailey Archer R.N.)1535 (Given - Provider: Kailey Archer R.N.) sodium chloride 0.9 % injection 2-10 mL(Linked Group 1) 2-10 mL, intravenous, As needed, line care, Starting on 01/07/25 at 1316 Linked Groups Order Group 1: Place peripheral IV: No upper extremity site restrictions (COMPLETED) Upper extremity site restriction: No upper extremity site restrictions, Quantity of PIVs requested: One, STAT, Once, On 01/07/25 at 1317, For 1 occurrence And sodium chloride 0.9 % injection 2-10 mLJump to med 2-10 mL, intravenous, As needed, line care, Starting on 01/07/25 at 1316 documented in this encounter Care Teams Washing Machine Loader And Puller Relationship Specialty Start Date End Date None Reported, Pcp PCP - General Family Medicine 07/22/24 documented as of this encounter
--- OUTSIDE RECORDS SUMMARY | 2025-01-08 21:25 | XMS_ITS | Encounter Summary ---
Author Organization [facility] Address [address] [place] [address] Care Team Providers Care Home Health Assistant Name Role Phone Roxy Mor Unavailable Unavailable Case Samuel MD Unavailable [phone] Juhi Benson RN Unavailable Unavailable Veronica Joseph MD Primary Care Provider [phone] Olinda Vora APRN DRESSER TENDER Unavailable [phone] Stiven Stanley Unavailable Star Galarza MD Unavailable [phone] Reason for Visit * Reason Comments Sickle Cell Pain Crisis * Auth/Cert Specialty Diagnoses / Procedures Referred By Shahid pendleton Referred To Contact EMERGENCY MEDICINE Diagnoses Sickle cell pain crisis (H) Stiven Ramirez MD [address] [place] [address] Phone: tel: fax: [facility] Emergency Department [address] [place] [address] Phone: tel: Referral ID Status Reason Start Date Expiration Date Visits Re quested Visits Authorized [id number] 1 1 Encounter Details Date Type Department Care Team ([facility] st Contact Info) Description 01/08/2025 9:25 PM CDT - 01/09/2025 12:18 AM CDT Emergency [facility] Emergency Department [address] [place] [address] Sameer Archer MD [address] [address] Jayden Adhikari MD [address] [place], [place] [address] Sickle cell pain crisis (H) (Primary Dx) [...] in an overnight prison, or couch-surfing.) Yes 11/09/2024 Are you worried [...] on file Legal 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 Gender Identity Not on file Sexual Orientation Not on file documented as of this encounter Last Filed Vital Signs Vital Sign Reading Time Taken Comments Blood Pressure 107/63 01/09/2025 12:11 AM CDT Pulse 82 01/08/2025 10:10 PM CDT Temperature 36.7 C (98 F) 01/09/2025 12:11 AM CDT Respiratory Rate 16 01/09/2025 12:11 AM CDT Oxygen Saturation 99% 01/09/2025 12:11 AM CDT Inhaled Oxygen Concentration - - Weight - - Height - - Body Mass Index - - documented in this encounter Discharge Instructions * Discharge Instructions* Sameer Archer MD - 01/08/2025 11:04 PM CDT Instructions from your doctor today: [...] an appointment to follow up with: - your membership assistant or Your Primary Care Provider in 2-4 days - If you do not have a primary care provider, you can be seen in follow-up and establish care by calling any of the clinics below: - [facility] (phone: [phone]) - Primary Care / [facility] (phone: [phone]) - Have your clinic provider review the results from today's visit with you again, including any potential follow-up or additional testing that may be needed based on the results. Occasionally, incidental findings are found on later review by radiologists that may need follow-up. Return to the Emergency Department immediately if you have worsening symptoms, or any other urgent health concerns. * Attachments The following attachments cannot be [...] 05/01/2024 naloxone (NARCAN) 4 MG/0.1ML nasal spray [facility] 1 spray (4 mg) into one nostril [...] Week supply. No early refills 24 tablet 01/08/2025 01/17/20 documented as of this encounter ED Notes * Marguerite Jackson, SOFIA - 01/09/2025 12:16 AM CDT Pt stopped this RN to state that she does not wish to wait for discharge paperwork and that she's ready to go. * Lali Haines RN - 01/08/2025 9:04 PM CDT Arrives ambulatory with sickle cell pain. States it started today. The pain is all over. Denies shortness of breath and chest pain. 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 Patient reports pain is fairly diffuse mainly in the back and legs. Pain is of similar quality to past sicklepain flares. Patient reports pain especially active today, which she thinks likely triggered the flare. No chest pain, no shortness of breath, no fever. Physical Exam BP: 102/62 Pulse: 88 Temp: 98.1 ??F (36.7 ??C) Resp: 16 SpO2: 97 % Physical Exam General: no acute distress. Appears stated age. HENT: MMM, no oropharyngeal lesions Eyes: PERRL, normal sclerae Cardio: Regular rate. Regular rhythm. Extremities well perfused Resp: Normal work of breathing, Normal respiratory rate. MSK: No step-offs, mild scattered paraspinal tenderness, no leg edema Neuro: alert without signs of confusion. CN II-XII grossly intact. Grossly normal strength and sensation in all extremities. Psych: normal affect, normal behavior ED Course Procedures Labs Ordered and Resulted from Time of ED Arrival to Time of ED Departure COMPREHENSIVE METABOLIC PANEL - Abnormal Result Value Sodium 140 Potassium 4.3 Carbon Dioxide (CO2) 22 Anion Gap 12 Urea Nitrogen 8.8 Creatinine 0.73 GFR Estimate >90 Calcium 9.3 Chloride 106 Glucose 91 Alkaline Phosphatase 98 AST 42 ALT 27 Protein Total 8.2 Albumin 4.5 Bilirubin Total 1.4 (*) RETICULOCYTE COUNT - Abnormal % Reticulocyte 8.42 (*) Absolute Reticulocyte 0.2256 (*) CBC WITH PLATELETS AND DIFFERENTIAL - Abnormal WBC Count 11.75 (*) RBC Count 2.69 (*) Hemoglobin 9.1 (*) Hematocrit 26.7 (*) MCV 99.3 MCH 33.8 (*) MCHC 34.1 RDW 17.6 (*) Platelet Count 545 (*) % Neutrophils 60.5 % Lymphocytes 30.0 % Monocytes 7.7 % Eosinophils 0.2 % Basophils 1.2 % Immature Granulocytes 0.4 NRBCs per 100 WBC 1.2 (*) Absolute Neutrophils 7.11 Absolute Lymphocytes 3.53 Absolute Monocytes 0.90 Absolute Eosinophils <0.03 Absolute Basophils 0.14 Absolute Immature Granulocytes 0.05 Absolute NRBCs 0.14 HCG QUALITATIVE - Normal hCG Serum Qualitative Negative No orders to display Medical Decision Making The patient's presentation was of high complexity (a chronic illness severe exacerbation, progression, or side effect of treatment). The patient's evaluation involved: review of external note(s) from 1 sources (care plan note) ordering and/or review of 3+ test(s) in this encounter (see separate area of note for details) The patient's management necessitated high risk (a parenteral controlled substance). Assessments & Plan Patient presenting with diffuse pains similar to past sickle pain flares. Vitals in the ED unremarkable. Nursing notes reviewed. Hemoglobin 9.1, mildly decreased from previous of 10.5 a couple days prior. Electrolytes unremarkable. Bilirubin mildly elevated at 1.4 consistent with some hemolysis. hCG negative. Reticulocyte count appropriately elevated. In the ED, the patient's symptoms were managed with hydromorphone, ondansetron, and IV fluids in line with her established ED care pain plan, with improvement in symptoms upon reassessment after 1st dose. Signed out to oncoming ED provider with plan to follow-up pain reassessments following subsequent doses of hydromorphone, likely discharge home if pain adequately controlled. Final diagnoses: Sickle cell pain crisis (H) New Prescriptions No medications on file -- Sameer Archer MD Emergency Medicine [facility] EMERGENCY DEPARTMENT 01/08/2025 Sameer Archer MD 01/08/25 [id number] documented in this encounter Plan of Treatment Upcoming Encounters Date Type Department Care Team (Late st Contact Info) Description 02/15/2025 10:30 AM CDT Lab [facility] Cancer [address] [address] Olinda Vora APRN DRESSER TENDER [address] [place] [id number] 02/15/2025 11:00 AM CDT Oncology Visit [address] [phone] Olinda Vora APRN DRESSER TENDER [address] [place] [address] 04/09/2025 3:00 PM IN SERVICE EDUCATOR Lab [facility] Cancer [facility] [address] [place] [address] Case Samuel MD [address] [facility] [address] [place], [place] [address] 04/09/2025 3:30 PM IN SERVICE EDUCATOR Oncology Visit [facility] Cancer [facility] [address] [place] [phone] Case Samuel MD [address] [facility] [address] [place], [place] [address] documented as of this encounter Goals Goal [...] Comments CBC WITH PLATELETS AND DIFFERENTIAL STAT 01/08/2025 9:52 PM CDT CBC WITH PLATELETS & DIFFERENTIAL STAT 01/08/2025 9:52 PM CDT RETICULOCYTE COUNT STAT 01/08/2025 9: 52 PM CDT HCG QUALITATIVE STAT 01/08/2025 9:52 PM CDT COMPREHENSIVE METABOLIC PANEL STAT 01/08/2025 9:52 PM CDT documented in this encounter Results * (ABNORMAL) CBC with platelets and differential (01/08/2025 9:52 PM CDT) WBC Count 11.75(H) 4.00 - 11.00 10e3/uL 01/08/2025 10:11 PM CDT [facility] RBC Count 2.69(L) 3.80 - 5.20 10e6/uL 01/08/2025 10:11 PM CDT [facility] Hemoglobin 9.1(L) 11.7 - 15.7 g/dL 01/08/2025 10:11 PM CDT [facility] Hematocrit 26.7(L) 35.0 - 47.0 % 01/08/2025 10:11 PM CDT [facility] MCV 99.3 78.0 - 100.0 fL 01/08/2025 10:11 PM CDT [facility] MCH 33.8(H) 26.5 - 33.0 pg 01/08/2025 10:11 PM CDT [facility] MCHC 34.1 31.5 - 36.5 g/dL 01/08/2025 10:11 PM CDT [facility] RDW 17.6(H) 10.0 - 15.0 % 01/08/2025 10:11 PM CDT [facility] Platelet Count 545(H) 150 - 450 10e3/uL 01/08/2025 10:11 PM CDT [facility] % Neutrophils 60.5 % 01/08/2025 10:11 PM CDT [facility] % Lymphocytes 30.0 % 01/08/2025 10:11 PM CDT [facility] % Monocytes 7.7 % 01/08/2025 10:11 PM CDT [facility] % Eosinophils 0.2 % 01/08/2025 10:11 PM CDT [facility] % Basophils 1.2 % 01/08/2025 10:11 PM CDT [facility] % Immature Granulocytes 0.4 % 01/08/2025 10:11 PM CDT [facility] NRBCs per 100 WBC 1.2(H) <1.0 /100 01/08/2025 10:11 PM CDT [facility] Absolute Neutrophils 7.11 1.60 - 8.30 10e3/uL 01/08/2025 10:11 PM CDT [facility] Absolute Lymphocytes 3.53 0.80 - 5.30 10e3/uL 01/08/2025 10:11 PM CDT [facility] Absolute Monocytes 0.90 0.00 - 1.30 10e3/uL 01/08/2025 10:11 PM CDT [facility] Absolute Eosinophils <0.03 0.00 - 0.70 10e3/uL 01/08/2025 10:11 PM CDT [facility] Absolute Basophils 0.14 0.00 - 0.20 10e3/uL 01/08/2025 10:11 PM CDT [facility] Absolute Immature Granulocytes 0.05 <=0.40 10e3/uL 01/08/2025 10:11 PM CDT [facility] Absolute NRBCs 0.14 10e3/uL 01/08/2025 10:11 PM CDT [facility] Blood BLOOD SPECIMEN / Unknown Venipuncture / Unknown 01/08/2025 9:52 PM CDT 01/08/2025 10:00 PM CDT us Sameer Archer MD LAB - BLOOD ORDERABLES Final Result [facility] [address] [facility], Room [address] [place] [phone] * hCG Qualitative (01/08/2025 9:52 PM CDT) hCG Serum Qualitative Negative Negative JARET 01/08/2025 10:19 PM CDT [facility] Comment:This test is for scr eening purposes. Results should be interpreted along with the clinical picture. Confirmation testing is available if warranted by ordering [id number], HCG Quantitative . Blood BLOOD SPECIMEN / Unknown Venipuncture / Unknown 01/08/2025 9:52 PM CDT 01/08/2025 10:00 PM CDT us Sameer Archer MD LAB - BLOOD ORDERABLES Final Result [facility] [address] [facility], [address] * (ABNORMAL) Reticulocyte count (01/08/2025 9:52 PM CDT) Pathologist [facility] % Reticulocyte 8.42(H) 0.50 - 2.00 % 01/08/2025 10:27 PM CDT [facility] Absolute Reticulocyte 0.2256(H) 0.0250 - 0.0950 10e6/uL 01/08/2025 10:27 PM CDT [facility] Blood BLOOD SPECIMEN / Unknown Venipuncture / Unknown 01/08/2025 9:52 PM CDT 01/08/2025 10:00 PM CDT Sameer Archer MD LAB - BLOOD ORDERABLES Final Result [facility] [address] [facility], [address] * (ABNORMAL) Comprehensive metabolic panel (01/08/2025 9:52 PM CDT) Pathologist [facility] Sodium 140 135 - 145 mmol/L 01/08/2025 10:33 PM CDT [facility] Potassium 4.3 3.4 - 5.3 mmol/L 01/08/2025 10:33 PM CDT [facility] Carbon Dioxide (CO2) 22 22 - 29 mmol/L 01/08/2025 10:33 PM CDT [facility] Anion Gap 12 7 - 15 mmol/L 01/08/2025 10:33 PM CDT [facility] Urea Nitrogen 8.8 6.0 - 20.0 mg/dL 01/08/2025 10:33 PM CDT [facility] Creatinine 0.73 0.51 - 0.95 mg/dL 01/08/2025 10:33 PM CDT [facility] GFR Estimate >90 >60 mL/min/1.7 3m2 01/08/2025 10:33 PM CDT [facility] Comment:eGFR calculated us2020 CKD-EPI equation. Calcium 9.3 8.8 - 10.4 mg/dL 01/08/2025 10:33 PM CDT [facility] Chloride 106 98 - 107 mmol/L 01/08/2025 10:33 PM CDT [facility] Glucose 91 70 - 99 mg/dL 01/08/2025 10:33 PM CDT [facility] Alkaline Phosphatase 98 40 - 150 U/L 01/08/2025 10:33 PM CDT [facility] AST 42 0 - 45 U/L 01/08/2025 10:33 PM CDT [facility] ALT 27 0 - 50 U/L 01/08/2025 10:33 PM CDT [facility] Protein Total 8.2 6.4 - 8.3 g/dL 01/08/2025 10:33 PM CDT [facility] Albumin 4.5 3.5 - 5.2 g/dL 01/08/2025 10:33 PM CDT [facility] Bilirubin Total 1.4(H) <=1.2 mg/dL 01/08/2025 10:33 PM CDT [facility] Blood BLOOD SPECIMEN / Unknown Venipuncture / Unknown 01/08/2025 9:52 PM CDT 01/08/2025 10:00 PM CDT us Sameer Archer MD LAB - BLOOD ORDERABLES Final Result [facility] [address] [facility], [address] [phone] documented in this encounter Visit Diagnoses Diagnosis 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 documented in this encounter Administered Medications Inactive Administered Medications - up to 3 most recent administrations Medication Order MAR Action Action Date Dose Rate Site hydromorphone (DILAUDID) injection 2 mg 2 mg, Intravenous, EVERY 1 HOUR PRN, severe pain, Starting on Wed01/08/25 at 2100, For 3 doses $Given 01/09/2025 12:08 AM CDT 2 mg $Given 01/08/2025 11:11 PM CDT 2 mg $Given 01/08/2025 9:56 PM CDT 2 mg lactated ringers BOLUS 1,000 mL Intravenous, 1,000 mL, ONCE, at 500 mL/hr, Administer over 2 Hours, On Wed01/08/25 at 2105, For 1 dose $New Bag 01/08/2025 9:57 PM CDT 1,000 mLs 500 mL/hr ondansetron (ZOFRAN) injection 8 mg 8 mg, Intravenous, ONCE PRN, nausea, vomiting, Administer over 2-5 Minutes, Starting on Wed01/08/25 at 2101, For 1 dose $Given 01/08/2025 9:57 PM CDT 8 mg documented in this encounter Active and Recently Administered Medications Times are shown in CDT. Scheduled Medication Order 01/07/2025 01/08/2025 01/09/2025 lactated ringers BOLUS 1,000 mL (COMPLETED) Intravenous, 1,000 mL, ONCE, at 500 mL/hr, Administer over 2 Hours, On Wed01/08/25 at 2105, For 1 dose 2157 ($New Bag - Provider: Ayo Suarez RN) 0004 (Stopped - Provider: Ifrah Zamora, SOFIA) PRN Medication Order 01/07/2025 01/08/2025 01/09/2025 hydromorphone (DILAUDID) injection 2 mg (COMPLETED) 2 mg, Intravenous, EVERY 1 HOUR PRN, severe pain, Starting on Wed01/08/25 at 2100, For 3 doses 2156 ($Given - Provider: Ayo Suarez RN)2311 ($Given - Provider: Ayo Suarez RN) 0008 ($Given - Provider: Ifrah Zamora, SOFIA) ondansetron (ZOFRAN) injection 8 mg (COMPLETED) 8 mg, Intravenous, ONCE PRN, nausea, vomiting, Administer over 2-5 Minutes, Starting on Wed01/08/25 at 2101, For 1 dose 2157 ($Given - Provider: Ayo Suarez RN) documented in this encounter Care Teams Home Health Assistant Relationship Specialty Start Date End Date Veronica Joseph MD [address] [place] [address] PCP - General Family Medicine 06/18/24 Mor Ramsey Medical Student 04/03/24 Case Samuel MD [address] [facility] [address] [place] [address] Assigned Pediatric Specialist Provider 05/18/24 Juhi Benson, RN Specialty Retail Inventory Control Clerk Hematology & Oncology 05/29/24 Olinda Vora APRN DRESSER TENDER [address] [place] [address] Assigned Cancer Care Provider 08/16/24 Stiven Stanley LP [address] [place] [address] Psychologist PSYCHOLOGIST CLINICAL 10/25/24 Star Galarza MD [facility] [address] [place], [place] [id number] Home Infusion Following Provider Infectious Diseases 11/07/24 documented as of this encounter
--- OUTSIDE RECORDS SUMMARY | 2025-01-09 18:18 | XMS_ITS | Encounter Summary ---
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 Operator Name Role Phone Roxy Mor Unavailable Unavailable Case Samuel MD Unavailable [phone] Juhi Benson RN Unavailable Unavailable Veronica Joseph MD Primary Care Provider [phone] Olinda Vora APRN RN PROGRESSIVE CARE Unavailable [phone] Stiven Stanley Unavailable Star Galarza MD Unavailable [phone] Reason for Visit * Reason Comments Sickle Cell Pain Crisis * Auth/Cert Specialty Diagnoses / Procedures Referred By Shahid pendleton Referred To Contact EMERGENCY MEDICINE Diagnoses Sickle cell pain crisis (H) Stiven Ramirez MD [address] [place] [id number] Phone: tel: fax: [facility] Emergency Department [address] [place] [address] Phone: tel: Referral ID Status Reason Start Date Expiration Date Visits Re quested Visits Authorized [id number] 1 1 Encounter Details Date Type Department Care Team (Latest Contact Info) Description 01/09/2025 6:18 PM CDT - 01/11/2025 9:19 AM CDT Hospital Encounter [facility] Emergency Department [address] [place] [address] Abdelrahman Goddard MD [address] [place] [id number] Stiven Ramirez MD [address] [place] [address] Esdras Markham MD [address] [place] [address] Lidia June MD [address] [facility] [address] [place] [id number] Sickle cell pain crisis (H) (Primary Dx) [...] file Legal 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 Gender Identity Not on file Sexual Orientation Not on file documented as of this encounter Last Filed Vital Signs Vital Sign Reading Time Taken Comments Blood Pressure 98/56 01/11/2025 4:40 AM CDT Pulse 77 01/10/2025 3:45 PM CDT Temperature 36.5 C (97.7 F) 01/11/2025 4:40 AM CDT Respiratory Rate 16 01/11/2025 4:40 AM CDT Oxygen Saturation 97% 01/11/2025 4:40 AM CDT Inhaled Oxygen Concentration - - Weight - - Height - - Body Mass Index - - documented in this encounter Discharge Summaries * Erika Hightower MD - 01/11/2025 5:31 AM CDT [facility] Hospitalist Discharge Summary Date of Admission: 01/09/2025 Date of Discharge: 01/11/2025 Discharging Provider: Erika Hightower MD Discharge Service: Hospitalist Service, [facility] TEAM 8 Discharge Diagnoses Sickle cell vaso-occlusive pain Chronic medical problems 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 Discharge Disposition Discharged to home Condition at discharge: Stable Hospital Course Gianna Hernández is a 29 year old female admitted on 01/09/2025. She has a past medical history ofsickle cell disease, acute chest syndrome, CVA, cardiac thrombus associated with port, endocarditis, functional asplenia, upper extremity DVT (11/2023), bilateral PE (06/26/24) on Eliquis, transfusionaliron overload previously, AVN left hip, retinopathy of the right eye, and anxiety. She presents to the ED with sickle cell pain crisis. In the ED, she received 8 mg dilaudid, 1000 ml bolus and 4 mg zofran. She was admitted for further management of Sickle cell pain. # Sickle cell pain crisis # AVN left hip # History of acute chest syndrome # Transfusion associated iron overload Reports 3 days of general pain in her back and legs which is consistent with her pain crisis. She was seen in the ED 01/08/25 and discharged. She returns tonight stating that her pain is still unmanageable. Hgb 8.1, 01/09/25 % retic 8.42 and absolute retic 0.2256. History of multiple episodes of acute chest, most recently 06/2024. Denies current chest pain or shortness of breath. Chest x-ray shows no airspace opacity. - She was started on treatment using the Inpatient pain plan: Opioid: Hydromorphone 2 mg IV Q3H scheduled--titrate within 24-48 hours LR at maintenance rate x 1-2 days Other Medications: Zofran, Oral Benadryl for anxiety Supportive Care: Miralax, Senna PRN - Hematology consulted: strongly encouraged to get back into hematology clinic - continued COTTON PICKER hydroxyurea, MVI and folic acid - Her pain improved by the morning of discharge and she felt she could manage at home. No new medication was prescribed on discharge. 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 Currently afebrile, WBC 9.4 - She was kept on COTTON PICKER Apixaban # History of DVT/PE Upper extremity DVT (11/2023), bilateral PE (06/26/24) - kept on COTTON PICKER Apixaban during hospitalization # Anxiety - COTTON PICKER prozac # History of CVA At age 7, no residual effects # Functional asplenia No acute management # Bilateral pulmonary nodules Seen on prior imaging and on chest x-ray tonight. - follow up outpatient Consultations This Hospital Stay CONSULT FOR INPATIENT VASCULAR ACCESS CARE CLASSICAL HEMATOLOGY ADULT IP CONSULT CARE MANAGEMENT / SOCIAL WORK IP CONSULT Code Status Full Code Time Spent on this Encounter I, Erika Hightower MD, personally saw the patient today and spent less than or equal to 30 minutesdischarging this patient. Erika Hightower MD [facility] [address] [place] [address] Physical Exam Vital Signs: Temp: 97.7 ??F (36.5 ??C) Temp src: Oral BP: 98/56 Pulse: 77 Resp: 16 SpO2: 97 % O2 Device: None (Room air) Weight: 0 lbs 0 oz General Appearance: Alert and oriented, appears comfortable Respiratory: unlabored Cardiovascular: RRR Primary Care Physician Veronica Joseph Discharge Orders Reason for your hospital stay You were admitted with severe pain due to sickle cell disease. We started you on inpatient management plan. You were also seen by wood finisher apprentice. Please make sure to arrange follow up with your wood finisher apprentice as well as your primary care provider.Seeing wood finisher apprentice as outpatient is very important to make sure your sickle cell disease is best managed. Activity Your activity upon discharge: activity as tolerated Diet Follow this diet upon discharge: Current Diet:Orders Placed This Encounter Combination Diet Regular Diet Adult Hospital Follow-up with Existing Primary Care Provider (PCP) Significant Results and Procedures Most Recent 3 CBC's: Recent Labs Lab Test 01/10/25 0635 01/09/25 1900 01/08/25 2152 WBC 9.36 9.42 11.75* HGB 7.7* 8.1* 9.1* MCV 97.8 98.8 99.3 PLT 491* 529* 545* Most Recent 3 BMP's: Recent Labs Lab Test 01/10/25 0635 01/09/25 1900 01/08/25 2152 NA 137 136 140 POTASSIUM 4.5 4.0 4.3 CHLORIDE 105 102 106 CO2 23 24 22 BUN 10.2 7.6 8.8 CR 0.67 0.67 0.73 ANIONGAP 9 10 12 EVELIN 8.6* 8.9 9.3 GLC 106* 82 91 , Results for orders placed or performed during the hospital encounter of 01/09/25 XR Chest 2 Views Narrative EXAM: XR CHEST 2 VIEWS LOCATION: [facility] DATE: 01/09/2025 INDICATION: shortness of breath, sickle cell COMPARISON: 12/23/2024. Impression IMPRESSION: Interval removal of right PICC. Pulmonary nodules appear unchanged. No acute airspace opacity. No pleural effusion. Borderline enlarged heart size unchanged. Normal pulmonary vascularity. Discharge Medications Review of your medicines CONTINUE these medicines which have NOT CHANGED Dose / Directions apixaban ANTICOAGULANT 5 MG [...] Commonly known as: NARCAN Dose: 4 mg Cazadero 1 spray (4 mg) into one nostril [...] 05/01/2024 naloxone (NARCAN) 4 MG/0.1ML nasal spray Cazadero 1 spray (4 mg) into one nostril [...] No early refills 24 tablet 01/08/2025 01/17/20 25 documented as of this encounter Progress Notes * Jemal Friend, RN - 01/11/2025 7:41 AM CDT DISCHARGE Discharged to: Home Via: Automobile Accompanied by: Friend Discharge Instructions: diet, activity, medications, follow up appointments, when to call the MD, and what to watchout for (i.e. s/s of infection, increasing SOB, palpitations, chest pain,) Prescriptions: N/A Follow Up Appointments: arranged; information given Belongings: All sent with pt IV: PIV removed, cath intact Telemetry: off Pt exhibits understanding of above discharge instructions; all questions answered. * Duke Olivares RN - 01/10/2025 6:39 AM CDT Changed: Assumed care [id number]. Afebrile, VSS. A&O*4 on RA. Independent to bathroom. Chronic constant sickle cell pain . Dilaudid increased to 2mg IV Q2. Pt slept on/off through night. No acute events. Running: LR @ 100 ml/hr PRN: Dilaudid A: Neuro: A&O*4 Tele: none Lung: RA GI: BM 01/09 : Independent to bathroom Skin: Intact Pain: constant 8-01/03 sickle cell pain Independent Temp: [98.1 ??F (36.7 ??C)-98.2 ??F (36.8 ??C)] 98.2 ??F (36.8 ??C) Pulse: [93] 93 Resp: [18-20] 18 BP: (96-106)/(55-66) 101/66 SpO2: [96 %-99 %] 97 % P: Continue to monitor Pt status and report changes to treatment team. documented in this encounter H&P Notes * Kolton Osuna APRN RN PROGRESSIVE CARE - 01/10/2025 12:01 AM CDT [facility] History and Physical - Hospitalist Service, GOLD TEAM Date of Admission: 01/09/2025 Assessment & Plan Gianna Hernández is a 29 year old female admitted on 01/09/2025. She has a past medical history ofsickle cell disease, acute chest syndrome, CVA, cardiac thrombus associated with port, endocarditis, functional asplenia, upper extremity DVT (11/2023), bilateral PE (06/26/24) on Eliquis, transfusionaliron overload previously, AVN left hip, retinopathy of the right eye, and anxiety. She presents to the ED with sickle cell pain crisis. In the ED, she received 8 mg dilaudid, 1000 ml bolus and 4 mg zofran # Sickle cell pain crisis # AVN left hip # History of acute chest syndrome # Transfusion associated iron overload Reports 3 days of general pain in her back and legs which is consistent with her pain crisis. She was seen in the ED 01/08/25 and discharged. She returns tonight stating that her pain is still unmanageable. Hgb 8.1, 01/09/25 % retic 8.42 and absolute retic 0.2256. History of multiple episodes of acute chest, most recently 06/2024. Denies current chest pain or shortness of breath. Chest x-ray shows no airspace opacity. 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 Currently afebrile, WBC 9.4 - COTTON PICKER Apixaban # History of DVT/PE Upper extremity DVT (11/2023), bilateral PE (06/26/24) - COTTON PICKER Apixaban # Anxiety - COTTON PICKER prozac # History of CVA At age 7, no residual effects # Functional asplenia No acute management # Bilateral pulmonary nodules Seen on prior imaging and on chest x-ray tonight. - follow up outpatient Diet: Combination Diet Regular Diet Adult DVT Prophylaxis: DOAC Santiago Catheter: Not present Lines: None Cardiac Monitoring: None Code Status: Full Code Disposition Plan Medically Ready for Discharge: The patient's care was discussed with the Attending Physician, Dr. Ramirez. Kolton Osuna APRN [employer] Hospitalist Service, [facility] Securely message with [employer] (more info) Text page via [facility] Paging/Directory See signed in provider for up to date coverage information Chief Complaint Pain in back and legs History is obtained from the patient and chart review History of Present Illness Gianna Hernández is a 29 year old female who has a past medical history of sickle cell disease, acute chest syndrome, CVA, cardiac thrombus associated w/ port and endocarditis in distant past, functional asplenia, upper extremity DVT (11/2023), bilateral PE (06/26/24) on Eliquis, transfusional iron overload previously, AVN left hip, retinopathy of the right eye, and anxiety. She presents to the EDwith sickle cell pain crisis. She has had many previous ED visits and admission and wit followed closely by [facility] hematology team. As noted above, she was seen 2 days in a row in the ED for ongoing pain due to sickle cell pain crisis. Past Medical History Past Medical History: Diagnosis [...] nasal spray Self, Other No No Sig: Cazadero 1 spray (4 mg) into one nostril [...] than noted in the HPI or here. Physical Exam Vital Signs: Temp: 98.1 ??F (36.7 ??C) Temp src: Oral BP: 96/55 Pulse: 93 Resp: 20 SpO2: 98 % O2 Device: None (Room air) Weight: 0 lbs 0 oz Physical Exam Constitutional: Well nourished, well developed, resting comfortably Cardiovascular: Regular rate and rhythm without murmurs or gallops Pulmonary/Chest: Clear to auscultation bilaterally, with no wheezes or retractions. No respiratory distress. GI: Soft with good bowel sounds. Non-tender, non-distended, with no guarding, no rebound, no peritoneal signs. Musculoskeletal: No edema or clubbing. Tenderness in legs and back Skin: Skin is warm and dry. No rash noted. Neurological: Alert and oriented to person, place, and time. Nonfocal exam Psychiatric: Normal mood and affect. Medical Decision Making 55 MINUTES SPENT BY ME on the date of service doing chart review, history, exam, documentation & further activities per the note. Data I have personally reviewed the following data over the past 24 hrs: 9.42 \ 8.1 (L) / 529 (H) 136 102 7.6 / 82 4.0 24 0.67 \ ALT: 22 AST: 33 AP: 85 TBILI: 1.2 ALB: 4.1 TOT PROTEIN: 7.4 LIPASE: N/A INR: 1.33 (H) PTT: N/A D-dimer: N/A Fibrinogen: N/A Imaging results reviewed over the past 24 hrs: Recent Results (from the past 24 hours) XR Chest 2 Views Narrative EXAM: XR CHEST 2 VIEWS LOCATION: [facility] DATE: 01/09/2025 INDICATION: shortness of breath, sickle cell COMPARISON: 12/23/2024. Impression IMPRESSION: Interval removal of right PICC. Pulmonary nodules appear unchanged. No acute airspace opacity. No pleural effusion. Borderline enlarged heart size unchanged. Normal pulmonary vascularity. Cosigned by Stiven Ramirez MD at 01/10/2025 2:40 AM CDT Associated attestation - Stiven Ramirze MD - 01/10/2025 2:40 AM CDT Physician Attestation I have reviewed and discussed with the advanced practice provider their history, physical and plan for Gianna Hernández. I did not participate in a shared visit; this is an advanced practice provider only visit. Stiven Ramirez MD Date of Service (when I saw the patient): I did not personally see this patient today. documented in this encounter Consult Notes * Eden Garcia MD - 01/10/2025 8:04 AM CDTAssociated Order(s): CLASSICAL HEMATOLOGY ADULT IP CONSULT Images from the original note were not included. Hematology Consult Service Initial Consult Note: Patient: Gianna Hernández : 1995 DOS: 01/10/2025 Date Admitted:01/09/2025 Primary Team: Bhavesh Newton Other Inpatient Consultants: [place] Primary Foundry Worker: Dr. Samuel Reason for Consultation: Hematology is consulted on Gianna Hernández for evaluation and treatmentof sickle cell pain crisis. 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 # Sickle cell vaso-occlusive pain crisis: - Pain control per pain plan with titration as needed: - Dilaudid IV 2mg q2h - currently ordered PRN, can consider CUSTOMER SERVICE ADVOCATE with 1mg q1h, no continuous rate ifdifficulty with getting IV push frequently enough in ED - Consider topicals (lidocaine patch, diclofenac gel, BenGay, warm packs) if patient finds these helpful - Avoid IV benadryl - Please discuss any transfusions with hematology first given risk of alloimmunization and iron overload - no acute indication at this time - Daily CBC with diff, bilirubin, reticulocyte count for now - Continue COTTON PICKER hydrea (1000 mg BID) and folic acid - Have discussed importance of getting back into hematology clinic for comprehensive sickle cell care with Gianna and she is in agreement - has appointment with Dr. Samuel's team scheduled for 01/16/25 that she is aware of # Acute chest syndrome prevention: - Monitor O2 sats and vitals - Encourage incentive spirometry q1h WA - Encourage ambulation, consider PT consult - Monitor for fluid overload and discontinue fluids when taking adequate po - Please ensure active type and screen while inpatient - Please page hematology if patient develops fever, acute shortness of breath or other symptoms of acute chest syndrome. # Hx VTE (DVT 2023, bilateral PEs 06/2024, R atrial thrombus on MANUEL 01/02/25 - chronic appearing) - Continue apixaban 5 mg BID We will continue to follow the patient. Patient seen and discussed with hematology attending, Dr. Long. Eden Garcia MD Hematology/Oncology Fellow PGY4 History of Present Illness: Gianna Hernández is a 29 year old with PMHx as above who presented to the ED for diffuse body pain that she notes feels like previous episodes of sickle cell pain crises. It is more severe than herusual pain, but same in quality and location. Pain is mostly in her low back, legs, and arms. No shortness of breath, chest pain, fevers/chills, cough. No sore throat, runny nose or other signs of viral infection. No other concerns today. She was hospitalized most recently 12/29-12/31 and 01/02-01/04 and has subsequently been seen in the ED 01/05, 01/06, 01/07, and 01/08, and 01/09 being admitted with the most recent visit. Most recent transfusion 01/03 when hgb 6.5, increased to 9.7 on recheck, has been drifting down since to 7.7 this AM. Relevant Past Medical and Surgical History/COTTON PICKER Medications: - Hx DVT/PE and R atrial thrombus on apixaban 5 mg BID - fluoxetine 40 mg daily - folic acid 1mg daily - Hydrea 1000 mg BID - Pain - 2 mg PO dilaudid q6h PRN for severe pain Current Inpatient Medications: In ED received 2mg IV dilaudid x4, 1L LR, zofran 4mg IV x1 Inpatient continues on dilaudid 2mg IV q2h PRN with PRN tylenol, PRN zofran, bowel regimen ROS: ROS is negative except as stated in the HPI Relevant Social History: Has been working on [employer] training her 2 year old daughterColleen Relevant Family History: Not discussed today Objective: Vitals: Afebrile, HR 82-93, BP 90s-100s/50s-60s, RR 16-20, 97-100% on room air Exam: Constitutional: No acute distress, lying in hallway bed in ED, pleasant and conversational HEENT: EOMI, no scleral icterus or injection CV: regular rate and rhythm, no murmurs/rubs/gallops Respiratory: clear to auscultation bilaterally, breathing comfortably on room air Skin: no petechiae, no ecchymosis, no rashes on exposed skin Neuro: Alert, oriented, answering questions appropriately. Moving all extremities equally without apparent focal deficit Labs: personally reviewed with relevant trends annotated below WBC 9.3 Hgb 7.7 <-- 8.1 on 01/09 <-- 9.1 on 01/08 <-- 10.5 on 01/06 <-- 9.7 on 01/04 after 1 unit pRBCs <-- 6.5 on 01/03 Platelets 491 Tbili 1.6 Creatinine 0.67 (baseline) Last retics 01/08 - 0.225 Imaging: Last CXR 01/09/25 done for shortness of breath: IMPRESSION: Interval removal of right PICC. Pulmonary nodules appear unchanged. No acute airspace opacity. No pleural effusion. Borderline enlarged heart size unchanged. Normal pulmonary vascularity. Cosigned by Kirstin Long MD at 01/10/2025 3:27 PM CDT Associated attestation - Kirstin Long MD - 01/10/2025 3:27 PM CDT Attestation: Physician Attestation I saw this patient with the resident and agree with the resident/fellow's findings and plan of careas documented in the note. Kenney findings: 29 yo woman with SCD and recent tricuspid valve endocarditis who presents with acute pain crisis. Vitals, labs, and xrays reviewed and patient does not appear to have any serious SCD-related complications requiring urgent/emergent transfusion. Continue to titrate pain medications Please see A&P for additional details of medical decision making. Medical complexity over the past 24 hours: - Parenteral (IV) CONTROLLED SUBSTANCES ordered - Intensive monitoring for MEDICATION TOXICITY Kirstin Long MD/PhD Date of Service (when I saw the patient): 01/10/25 documented in this encounter ED Notes * Abdelrahman Goddard MD - 01/09/2025 6:20 PM CDT Images from the original note were not included. [place] [facility] ([facility]) 01/09/25 ED PROVIDER NOTE History Chief Complaint Patient presents with Sickle Cell Pain Crisis HPI Gianna Hernández is a 29 year old female well known to this ED with a history notable for sickle cell disease complicated by frequent pain crises and PE (on Eliquis) who presents to the ED with sickle cell pain. Patient reports generalized body pain that feels similar to prior sickle cell crises.She has not had any chest pain, shortness of breath, cough, or fevers/chills. No other concerns. Past Medical History Past Medical History: Diagnosis Date Acute chest syndrome, history of multiple episodes, intubated once Avascular necrosis of left femur, history of Cholelithiasis Continuous opioid dependence Endocarditis, history of 11/2022 culture-negative, [facility] Functional asplenia History of stroke related to [...] all other systems negative. Physical Exam BP: 96/59 Pulse: 93 Temp: 98.1 ??F (36.7 ??C) Resp: 20 SpO2: 98 % Physical Exam Vitals and [...] sounds: Normal breath sounds. No stridor. No wheezing or rhonchi. Abdominal: General: Abdomen is flat. There is no distension. Palpations: There is no mass. Tenderness: There is no abdominal tenderness. There is no guarding or rebound. Hernia: No hernia is present. Musculoskeletal: Cervical back: Neck supple. Skin: General: Skin is warm. Findings: No rash. Neurological: Mental Status: She is alert. ED Course, Procedures, & Data Procedures Medications - No data to display Critical care was not performed. [...] or test interpretation with another health professional (hospitalist) The patient's management necessitated high risk (a decision regarding hospitalization). Assessment & Plan Labs reviewed and interpreted by me are reassuring, reassuring hemoglobin Chest x-ray was read as reassuring Once the patient's pain plan but she still having severe pain, and therefore we will plan to admit patient to medicine for sickle cell crisis Discussed case with internal medicine physician who accepted patient for admission. I have reviewed the nursing notes. I have reviewed the findings, diagnosis, plan and need for follow up with the patient. New Prescriptions No medications on file Final diagnoses: None I, Dottie Bernard, am serving as a trained emergency medicine medical director to document services personally performed byAbdelrahman Goddard MD based on the provider's statements to me on January 09, 2025. This document hasbeen checked and approved by the attending provider. I, Abdelrahman Goddard MD, was physically present and have reviewed and verified the accuracy of this note documented by Dottie Bernard emergency medicine medical director. Abdelrahman Goddard MD [facility] 01/09/2025 Abdelrahman Goddard MD 01/09/258 * Whitney Driscoll RN - 01/09/2025 6:16 PM CDT Patient ambulatory to triage with c/o sickle cell pain crisis. Triage Assessment (Adult) Row Name 01/09/25 1816 Triage Assessment Airway WDL WDL Respiratory WDL Respiratory WDL WDL Skin Circulation/Temperature WDL Skin Circulation/Temperature WDL WDL Cardiac WDL Cardiac WDL WDL Peripheral/Neurovascular WDL Peripheral Neurovascular WDL WDL Cognitive/Neuro/Behavioral WDL Cognitive/Neuro/Behavioral WDL WDL documented in this encounter Miscellaneous Notes * Plan of Care - Yuridia Franks RN - 01/11/2025 6:55 AM CDT Care Hours: [id number] Goal Outcome Evaluation: Plan of Care Reviewed With: patient Overall Patient Progress: improving Outcome Evaluation: Patient reports feeling okay to manage pain at home. Dilaudid given q2 prn for severe pain overnight. Patient plans to discharge around 0700 when her boyfriend comes to pick her up. Discharge paperwork reviewed with patient. Patient is waiting waiting for IV to be removed prior to discharge. See flowsheets for full assessment and vitals. * Medication Scribe - Admission Medication History - Gerard Kenney - 01/10/2025 4:27 PM CDT Medication Scribe Admission Medication History Admission medication history is complete. The information provided in this note is only as accurateas the sources available at the time of the update. Information Source(s): Patient and Hospital records via in-person Pertinent Information: Patient denied going over [facility] medication list, and stated that all medication records were the same. Patient's MAR was used to confirm. Changes made to [facility] medication list: Added: None Deleted: None Changed: None Allergies reviewed with patient and updates made in EHR: no Medication History Completed By: Gerard Kenney 01/10/2025 4:27 PM [facility] Med List Medication Sig Last Dose/Taking apixaban ANTICOAGULANT (ELIQUIS) 5 MG tablet Take 1 tablet (5 mg) by mouth 2 times daily. 01/10/2025 diphenhydrAMINE (BENADRYL) 25 MG tablet Take 1-2 tablets by mouth every 6 hours as needed for itching. 01/10/2025 EPINEPHrine (ANY BX GENERIC EQUIV) 0.3 MG/0.3ML injection 2-pack Inject 0.3 mg into the muscle as needed for anaphylaxis. May repeat one time in 5-15 minutes if response to initial dose is inadequate. Taking As Needed FLUoxetine (PROZAC) 40 MG capsule Take 1 capsule (40 mg) by mouth daily. 01/10/2025 folic acid (FOLVITE) 1 MG tablet Take 1 tablet (1 mg) by mouth daily. 01/10/2025 HYDROmorphone (DILAUDID) 2 MG tablet Take 1 tablet (2 mg) by mouth every 6 hours as needed for severe pain or breakthrough pain. 1 Week supply. No early refills 01/10/2025 hydroxyurea (HYDREA) 500 MG capsule Take 2 capsules (1,000 mg) by mouth 2 times daily 01/10/2025 multivitamin, therapeutic (THERA-VIT) TABS tablet Take 1 tablet by mouth daily. 01/10/2025 naloxone (NARCAN) 4 MG/0.1ML nasal spray [place] 1 spray (4 mg) into one nostril [...] hours as needed for nausea or vomiting. 01/10/2025 polyethylene glycol (MIRALAX) 17 GM/Dose powder Take 17 g by mouth 2 times daily as needed for constipation. Unknown senna-docusate (SENOKOT-S/PERICOLACE) 8.6-50 MG tablet Take 2 tablets by mouth 2 times daily as needed for constipation. Unknown documented in this encounter Plan of Treatment Upcoming Encounters Date Type Department Care Team (Late st Contact Info) Description 02/15/2025 10:30 AM CDT Lab [facility] [address] [phone] Olinda Vora APRN RN [facility] [address] [place] [id number] 02/15/2025 11:00 AM CDT Oncology Visit [address] [phone] Olinda Vora APRN RN [facility] [address] [place] [id number] 04/09/2025 3:00 PM SENIOR DATABASE ADMINISTRATOR Lab [address] [phone] Case Samuel MD [address] [facility] [address] [place], [place] [phone] 04/09/2025 3:30 PM SENIOR DATABASE ADMINISTRATOR Oncology Visit [facility] [address] [place] [phone] Case Samuel MD [address] [facility] [address], [address] [place] [address] documented as of this encounter Goals Goal [...] Associated Diagnosis Comments TYPE AND SCREEN, ADULT Routine 6:35 AM CDT COMPREHENSIVE METABOLIC PANEL (LIMITED OCCURRENCES) STAT 01/10/2025 6:35 AM CDT RETICULOCYTE COUNT Add-On 01/10/2025 6: 35 AM CDT ABO/RH TYPE AND SCREEN Add-On 6:35 AM CDT CBC WITH PLATELETS STAT 01/10/2025 6: 35 AM CDT ROUTINE UA WITH MICROSCOPIC REFLEX TO CULTURE STAT 01/09/2025 8:47 PM CDT XR CHEST 2 VIEWS STAT 01/09/2025 7:37 PM CDT CBC WITH PLATELETS AND DIFFERENTIAL STAT 01/09/2025 7:00 PM CDT CBC WITH PLATELETS AND DIFFERENTIAL (LIMITED OCCURRENCES) STAT 01/09/2025 7:00 PM CDT COMPREHENSIVE METABOLIC PANEL (LIMITED OCCURRENCES) STAT 01/09/2025 7:00 PM CDT INR STAT 01/09/2025 7:00 PM CDT HCG QUALITATIVE STAT 01/09/2025 7:00 PM CDT documented in this encounter Results * Adult Type and Screen (01/10/2025 6:35 AM CDT) Pathologist [facility] ABO/RH(D) A POS 01/10/2025 3:22 PM CDT U BLOOD BANK Antibody Screen Negative Negative 01/10/2025 3:22 PM CDT BLOOD BANK Comment:Current antibody scr een is negative. Patient has a history of antibody(ies). A delay in compatible red blood cells may occur. SPECIMEN EXPIRATION DATE 01/13/2025 11:59:00 PM CDT 01/10/2025 3:22 PM CDT BLOOD BANK Blood STRUCTURE OF RIGHT HAND / Unknown Venipuncture / Unknown 01/10/2025 6:35 AM CDT 01/10/2025 6:44 AM CDT us Eden Gracia MD LAB - BLOOD BANK TEST ORDER F inal Result BLOOD BANK [address] [place] [phone], [facility] * (ABNORMAL) Reticulocyte count (01/10/2025 6:35 AM CDT) % Reticulocyte 8.96(H) 0.50 - 2.00 % 01/10/2025 8:56 AM CDT [facility] Absolute Reticulocyte 0.2097(H) 0.0250 - 0.0950 10e6/uL 01/10/2025 8:56 AM CDT [facility] Blood STRUCTURE OF RIGHT HAND / Unknown Venipuncture / Unknown 01/10/2025 6:35 AM CDT 01/10/2025 6:44 AM CDT us Eden Garcia MD LAB - BLOOD ORDERABLES Final Result [facility] [address] [facility], [address] [place] [phone] * (ABNORMAL) CBC with platelets (01/10/2025 6:35 AM CDT) Pathologist [facility] WBC Count 9.36 4.00 - 11.00 10e3/uL 01/10/2025 6:55 AM CDT [facility] RBC Count 2.31(L) 3.80 - 5.20 10e6/uL 01/10/2025 6:55 AM CDT [facility] Hemoglobin 7.7(L) 11.7 - 15.7 g/dL 01/10/2025 6:55 AM CDT [facility] Hematocrit 22.6(L) 35.0 - 47.0 % 01/10/2025 6:55 AM CDT [facility] MCV 97.8 78.0 - 100.0 fL 01/10/2025 6:55 AM CDT [facility] MCH 33.3(H) 26.5 - 33.0 pg 01/10/2025 6:55 AM CDT [facility] MCHC 34.1 31.5 - 36.5 g/dL 01/10/2025 6:55 AM CDT [facility] RDW 17.5(H) 10.0 - 15.0 % 01/10/2025 6:55 AM CDT [facility] Platelet Count 491(H) 150 - 450 10e3/uL 01/10/2025 6:55 AM CDT [facility] Blood STRUCTURE OF RIGHT HAND / Unknown Venipuncture / Unknown 01/10/2025 6:35 AM CDT 01/10/2025 6:44 AM CDT Kolton Osuna CERTIFIED ALCOHOL AND DRUG COUNSELOR RN PROGRESSIVE CARE LAB - BLOOD ORDE SHARMAINE Final Result [facility] [address] [facility], [address] [place] [phone] * (ABNORMAL) Comprehensive Metabolic Panel (Limited Occurrences) (01/10/2025 6:35 AM CDT) Sodium 137 135 - 145 mmol/L 01/10/2025 7:08 AM CDT [facility] Potassium 4.5 3.4 - 5.3 mmol/L 01/10/2025 7:08 AM CDT [facility] Carbon Dioxide (CO2) 23 22 - 29 mmol/L 01/10/2025 7:08 AM CDT [facility] Anion Gap 9 7 - 15 mmol/L 01/10/2025 7:08 AM CDT [facility] Urea Nitrogen 10.2 6.0 - 20.0 mg/dL 01/10/2025 7:08 AM CDT [facility] Creatinine 0.67 0.51 - 0.95 mg/dL 01/10/2025 7:08 AM CDT [facility] GFR Estimate >90 >60 mL/min/1.7 3m2 01/10/2025 7:08 AM CDT [facility] Comment:eGFR calculated us2020 CKD-EPI equation. Calcium 8.6(L) 8.8 - 10.4 mg/dL 01/10/2025 7:08 AM CDT [facility] Chloride 105 98 - 107 mmol/L 01/10/2025 7:08 AM CDT [facility] Glucose 106(H) 70 - 99 mg/dL 01/10/2025 7:08 AM CDT [facility] Alkaline Phosphatase 72 40 - 150 U/L 01/10/2025 7:08 AM CDT [facility] AST 32 0 - 45 U/L 01/10/2025 7:08 AM CDT [facility] ALT 18 0 - 50 U/L 01/10/2025 7:08 AM CDT [facility] Protein Total 6.4 6.4 - 8.3 g/dL 01/10/2025 7:08 AM CDT [facility] Albumin 3.5 3.5 - 5.2 g/dL 01/10/2025 7:08 AM CDT [facility] Bilirubin Total 1.6(H) <=1.2 mg/dL 01/10/2025 7:08 AM CDT [facility] Blood STRUCTURE OF RIGHT HAND / Unknown Venipuncture / Unknown 01/10/2025 6:35 AM CDT 01/10/2025 6:42 AM CDT us Kolton Osuna APRN RN PROGRESSIVE CARE LAB - BLOOD AJAY SCHMID Final Result [facility] [address] [facility], [address] [phone] * (ABNORMAL) UA with Microscopic reflex to Culture (01/09/2025 8:47 PM CDT) Color Urine Light Yellow Colorless, Straw, Light Yellow, Yellow 01/09/2025 9:00 PM CDT [facility] Appearance Urine Clear Clear 01/10/20 25 9:00 PM CDT [facility] Glucose Urine Negative Negative mg/dL 01/09/2025 9:00 PM CDT [facility] Bilirubin Urine Negative Negative 9:00 PM CDT [facility] Ketones Urine Negative Negative mg/dL 01/09/2025 9:00 PM CDT [facility] Specific [place] Urine 1.010 1.003 - 1.035 01/09/2025 9:00 PM CDT [facility] Blood Urine Negative Negative 01/09/2025 9:00 PM CDT [facility] pH Urine 7.0 5.0 - 7.0 01/09/2025 9:00 PM CDT [facility] Protein Albumin Urine Negative Negative mg/dL 01/09/2025 9:00 PM CDT [facility] Urobilinogen Urine 2.0(A) Normal mg/dL 01/09/2025 9:00 PM CDT [facility] Nitrite Urine Negative Negative 01/09/2025 9:00 PM CDT [facility] Leukocyte Esterase Urine Negative Negative 01/09/2025 9:00 PM CDT [facility] Bacteria Urine Few(A) None Seen /HPF 01/09/2025 9:00 PM CDT [facility] RBC Urine 0 <=2 /HPF 01/09/2025 9:00 PM CDT [facility] WBC Urine 1 <=5 /HPF 01/09/2025 9:00 PM CDT [facility] Squamous Epithelials Urine 2(H) <=1 /HPF 01/09/2025 9:00 PM CDT [facility] Urine MID-STREAM URINE SPECIMEN / Unknown Non-blood Collection / Unknown 01/09/2025 8:47 PM CDT 01/09/2025 8:51 PM CDT Narrative [facility] - 01/09/2025 9:00 PM CDT Urine Culture not indicated us Abdelrahman Goddard MD LAB - URINE ORDERABLES Final R esult [facility] [address] [facility], [address] [place] [phone] * XR Chest 2 Views (01/09/2025 7:37 PM CDT) Anatomical Region Laterality Modality Chest Computed Radiogr aphy 01/09/2025 7:37 PM CDT Impressions 01/09/2025 7:44 PM CDT IMPRESSION: Interval removal of right PICC. Pulmonary nodules appear unchanged. No acute airspace opacity. No pleural effusion. Borderline enlarged heart size unchanged. Normal pulmonary vascularity. Narrative 01/09/2025 7:44 PM CDT EXAM: XR CHEST 2 VIEWS LOCATION: [facility] DATE: 01/09/2025 INDICATION: shortness of breath, sickle cell COMPARISON: 12/23/2024. Procedure Note Diana Mendez MD - 01/09/2025 EXAM: XR CHEST 2 VIEWS LOCATION: [facility] DATE: 01/09/2025 INDICATION: shortness of breath, sickle cell COMPARISON: 12/23/2024. IMPRESSION: Interval removal of right PICC. Pulmonary nodules appearunchanged. No acute airspace opacity. No pleural effusion. Borderlineenlarged heart size unchanged. Normal pulmonary vascularity. Abdelrahman CANALES DIAGNOSTIC IMAGING ORDERAB LES Final Result * (ABNORMAL) CBC with platelets and differential (01/09/2025 7:00 PM CDT) WBC Count 9.42 4.00 - 11.00 10e3/uL 01/09/2025 7:21 PM CDT [facility] RBC Count 2.40(L) 3.80 - 5.20 10e6/uL 01/09/2025 7:21 PM CDT [facility] Hemoglobin 8.1(L) 11.7 - 15.7 g/dL 01/09/2025 7:21 PM CDT [facility] Hematocrit 23.7(L) 35.0 - 47.0 % 01/09/2025 7:21 PM CDT [facility] MCV 98.8 78.0 - 100.0 fL 01/09/2025 7:21 PM CDT [facility] MCH 33.8(H) 26.5 - 33.0 pg 01/09/2025 7:21 PM CDT [facility] MCHC 34.2 31.5 - 36.5 g/dL 01/09/2025 7:21 PM CDT [facility] RDW 17.4(H) 10.0 - 15.0 % 01/09/2025 7:21 PM CDT [facility] Platelet Count 529(H) 150 - 450 10e3/uL 01/09/2025 7:21 PM CDT [facility] % Neutrophils 34.8 % 01/09/2025 7:21 PM CDT [facility] % Lymphocytes 51.6 % 01/09/2025 7:21 PM CDT [facility] % Monocytes 10.4 % 01/09/2025 7:21 PM CDT [facility] % Eosinophils 1.5 % 01/09/2025 7:21 PM CDT [facility] % Basophils 1.3 % 01/09/2025 7:21 PM CDT [facility] % Immature Granulocytes 0.4 % 01/09/2025 7:21 PM CDT [facility] NRBCs per 100 WBC 1.1(H) <1.0 /100 025 7:21 PM CDT [facility] Absolute Neutrophils 3.28 1.60 - 8.30 10e3/uL 01/09/2025 7:21 PM CDT [facility] Absolute Lymphocytes 4.86 0.80 - 5.30 10e3/uL 01/09/2025 7:21 PM CDT [facility] Absolute Monocytes 0.98 0.00 - 1.30 10e3/uL 01/09/2025 7:21 PM CDT [facility] Absolute Eosinophils 0.14 0.00 - 0.70 10e3/uL 01/09/2025 7:21 PM CDT [facility] Absolute Basophils 0.12 0.00 - 0.20 10e3/uL 01/09/2025 7:21 PM CDT [facility] Absolute Immature Granulocytes 0.04 <=0.40 10e3/uL 01/09/2025 7:21 PM CDT [facility] Absolute NRBCs 0.10 10e3/uL 01/09/2025 7:21 PM CDT [facility] Blood BLOOD SPECIMEN / Unknown Venipuncture / Unknown 01/09/2025 7:00 PM CDT 01/09/2025 7:12 PM CDT us Abdelrahman Goddard MD LAB - BLOOD ORDERABLES Final R esult [facility] [address] [facility], [address] [place] [phone], [facility] * HCG qualitative Blood (01/09/2025 7:00 PM CDT) hCG Serum Qualitative Negative Negative JARET 01/09/2025 7:20 PM CDT [facility] Comment:This test is for scr eening purposes. Results should be interpreted along with the clinical picture. Confirmation testing is available if warranted by ordering [id number], HCG Quantitative . Blood BLOOD SPECIMEN / Unknown Venipuncture / Unknown 01/09/2025 7:00 PM CDT 01/09/2025 7:06 PM CDT us Abdelrahman Goddard MD LAB - BLOOD ORDERABLES Final R esult [facility] [address] [facility], [address] [phone] * Comprehensive Metabolic Panel (Limited Occurrences) (01/09/2025 7:00 PM CDT) Sodium 136 135 - 145 mmol/L 01/09/2025 7:30 PM CDT [facility] Potassium 4.0 3.4 - 5.3 mmol/L 01/09/2025 7:30 PM CDT [facility] Carbon Dioxide (CO2) 24 22 - 29 mmol/L 01/09/2025 7:30 PM CDT [facility] Anion Gap 10 7 - 15 mmol/L 01/09/2025 7:30 PM CDT [facility] Urea Nitrogen 7.6 6.0 - 20.0 mg/dL 01/09/2025 7:30 PM CDT [facility] Creatinine 0.67 0.51 - 0.95 mg/dL 01/09/2025 7:30 PM CDT [facility] GFR Estimate >90 >60 mL/min/1.7 3m2 01/09/2025 7:30 PM CDT [facility] Comment:eGFR calculated 2020 CKD-EPI equation. Calcium 8.9 8.8 - 10.4 mg/dL 01/09/2025 7:30 PM CDT [facility] Chloride 102 98 - 107 mmol/L 01/09/2025 7:30 PM CDT [facility] Glucose 82 70 - 99 mg/dL 01/09/2025 7:30 PM CDT [facility] Alkaline Phosphatase 85 40 - 150 U/L 01/09/2025 7:30 PM CDT [facility] AST 33 0 - 45 U/L 01/09/2025 7:30 PM CDT [facility] ALT 22 0 - 50 U/L 01/09/2025 7:30 PM CDT [facility] Protein Total 7.4 6.4 - 8.3 g/dL 01/09/2025 7:30 PM CDT [facility] Albumin 4.1 3.5 - 5.2 g/dL 01/09/2025 7:30 PM CDT [facility] Bilirubin Total 1.2 <=1.2 mg/dL 01/09/2025 7:30 PM CDT [facility] Blood BLOOD SPECIMEN / Unknown Venipuncture / Unknown 01/09/2025 7:00 PM CDT 01/09/2025 7:07 PM CDT Abdelrahman Goddard MD LAB - BLOOD ORDERABLES Final R esult [facility] [address] [facility], [address] [phone] * (ABNORMAL) INR (01/09/2025 7:00 PM CDT) INR 1.33(H) 0.85 - 1.15 01/09/2025 7:37 PM CDT [facility] PT 16.8(H) 11.8 - 14.8 Seconds 01/09/2025 7:37 PM CDT [facility] Blood BLOOD SPECIMEN / Unknown Venipuncture / Unknown 01/09/2025 7:00 PM CDT 01/09/2025 7:12 PM CDT Abdelrahman Goddadr MD LAB - BLOOD ORDERABLES Final R esult Performing Organization Address City/[facility] Co de Phone Number [facility] [address] [facility], [address] [phone] documented in this encounter Visit Diagnoses Diagnosis [...] Action Date Dose Rate Site acetaminophen (TYLENOL) Suppository 650 mg 650 mg, Rectal, EVERY 4 HOURS PRN, mild pain, other, and adjunct with moderate or severe pain or per patient request, Starting on Wed01/10/25 at 0126, Alternate with ibuprofen if ordered. Maximum acetaminophen dose from all sources= 75 mg/kg/day or 4 g/day. acetaminophen (TYLENOL) tablet 650 mg 650 mg, Oral, EVERY 4 HOURS PRN, mild pain, other, and adjunct with moderate or severe pain or per patient request, Starting on Wed01/10/25 at 0126, Alternate with ibuprofen if ordered. Maximum acetaminophen dose from all sources = 75 mg/kg/day not to exceed 4 grams/day. $Given 01/10/2025 11:30 AM CDT 650 mg apixaban ANTICOAGULANT (ELIQUIS) tablet 5 mg 5 mg, Oral, 2 TIMES DAILY, First dose on Wed01/10/25 at 0800, Indications: DVT-PE ProphylaxisIndications:DVT-PE Prophylaxis $Given 01/10/2025 7:51 PM CDT 5 mg $Given 01/10/2025 8:17 AM CDT 5 mg diphenhydrAMINE (BENADRYL) capsule 25 mg 25 mg, Oral, EVERY 6 HOURS PRN, itching, Starting on Wed01/10/25 at 0016 $Given 01/10/2025 8:01 PM CDT 25 mg $Given 01/10/2025 12:27 AM CDT 25 mg FLUoxetine (PROzac) capsule 40 mg 40 mg, Oral, DAILY, First dose on Wed01/10/25 at 0800 $Given 01/10/2025 8:16 AM CDT 40 mg folic acid (FOLVITE) tablet 1 mg 1 mg, Oral, DAILY, First dose on Wed01/10/25 at 0800 $Given 01/10/2025 8:17 AM CDT 1 mg hydromorphone (DILAUDID) injection 2 mg 2 mg, Intravenous, ONCE, On Wed01/09/25 at 1825, For 1 dose $Given 01/09/2025 7:12 PM CDT 2 mg hydromorphone (DILAUDID) injection 2 mg 2 mg, Intravenous, ONCE, On Wed01/09/25 at 1945, For 1 dose $Given 01/09/2025 8:39 PM CDT 2 mg hydromorphone (DILAUDID) injection 2 mg 2 mg, Intravenous, ONCE, On Wed01/09/25 at 2130, For 1 dose $Given 01/09/2025 9:32 PM CDT 2 mg hydromorphone (DILAUDID) injection 2 mg 2 mg, Intravenous, ONCE, On Wed01/09/25 at 2225, For 1 dose $Given 01/09/2025 10:27 PM CDT 2 mg hydromorphone (DILAUDID) injection 2 mg 2 mg, Intravenous, EVERY 3 HOURS PRN, severe pain, Starting on Wed01/10/25 at 0015 $Given 01/10/2025 12:27 AM CDT 2 mg hydromorphone (DILAUDID) injection 2 mg 2 mg, Intravenous, EVERY 2 HOURS PRN, severe pain, Starting on Wed01/10/25 at 0241 $Given 01/11/2025 6:36 AM CDT 2 mg $Given 01/11/2025 3:20 AM CDT 2 mg $Given 01/11/2025 1:39 AM CDT 2 mg hydroxyurea (HYDREA) capsule 1,000 mg 1,000 mg, Oral, 2 TIMES DAILY, First dose on Wed01/10/25 at 0800, Indications: sickle cell disease, Do not crush May require hepatic and/or renal dose or frequency adjustments. See reference link for guidelines.Indications:sickle cell disease $Given 01/10/2025 7:52 PM CDT 1,000 mg $Given 01/10/2025 8:16 AM CDT 1,000 mg lactated ringers BOLUS 1,000 mL Intravenous, 1,000 mL, ONCE, at 1,000 mL/hr, Administer over 1 Hours, On Wed01/09/25 at 1825, For 1 dose $New Bag 01/09/2025 7:13 PM CDT 1,000 mLs 1000 mL/hr lactated ringers infusion at 100 mL/hr, Intravenous, CONTINUOUS, Starting on Wed01/10/25 at 0020, Until Wed01/10/25 at 2019 Rate/Dose Verify 01/10/2025 8:01 PM CDT 100 mL/hr $New Bag 01/10/2025 1:35 PM CDT 100 mL/hr Rate/Dose Verify 01/10/2025 11:30 AM CDT 100 mL /hr multivitamin, therapeutic (THERA-VIT) tablet 1 tablet 1 tablet, Oral, DAILY, First dose on Wed01/10/25 at 0800 $Given 01/10/2025 8:16 AM CDT 1 tablet naloxone (NARCAN) injection 0.2 mg 0.2 mg, Intravenous, EVERY 2 MIN PRN, opioid reversal, Starting on Wed01/10/25 at 0749, Administer intravenous route when available and notify [...] 2 MIN PRN, opioid reversal, Starting on Wed01/10/25 at 0749, Administer intramuscular if an intravenous route is [...] 2 MIN PRN, opioid reversal, Starting on Wed01/10/25 at 0749, Administer intravenous route when available and notify [...] 2 MIN PRN, opioid reversal, Starting on Wed01/10/25 at 0749, Administer intramuscular if an intravenous route is [...] PRN, nausea/vomiting - 1st line, Starting on Wed01/10/25 at 0126, This is Step 1 of nausea and [...] Intravenous, ONCE, Administer over 2-5 Minutes, On Wed01/09/25 at 1825, For 1 dose $Given 01/09/2025 7:12 PM CDT 4 mg ondansetron (ZOFRAN) injection 4 mg 4 mg, Intravenous, EVERY 6 HOURS PRN, nausea/vomiting - 1st line, Administer over 2-5 Minutes, Starting on Wed01/10/25 at 0126, Give IF patient unable to tolerate oral medication. This is Step 1 of nausea and vomiting management. If nausea not resolved in 15 minutes, go to Step 2 prochlorperazine (COMPAZINE). $Given 01/10/2025 11:47 AM CDT 4 mg senna-docusate (SENOKOT-S/PERICOLACE) 8.6-50 MG per tablet 1 tablet 1 tablet, Oral, 2 TIMES DAILY PRN, constipation, Starting on Wed01/10/25 at 0126, If no bowel movement in 24 hours, [...] 2 TIMES DAILY PRN, constipation, Starting on Wed01/10/25 at 0126, IF more than 1 constipation PRN medication [...] EVERY 8 HOURS SCHEDULED, First dose on Wed01/10/25 at 0600, to lock peripheral IV dormant line $Given 01/10/2025 1:34 PM CDT 3 m Ls documented in this encounter Active and Recently Administered Medications Times are shown in CDT. Scheduled Medication Order 01/09/2025 01/10/2025 01/11/2025 apixaban ANTICOAGULANT (ELIQUIS) tablet 5 mg 5 mg, Oral, 2 TIMES DAILY, First dose on Wed01/10/25 at 0800, Indications: DVT-PE Prophylaxis 816 ($Given - Provider: Alexsandra Farfan RN)1950 ($Given - Provider: Yuridia Franks RN) 0835 (Not Given - Provider: Jemal Friend RN - Reason: Other - Comment: Patient discharging, wants to take once at home) FLUoxetine (PROzac) capsule 40 mg 40 mg, Oral, DAILY, First dose on Wed01/10/25 at 0800 0816 ($Given - Provider: Alexsandra Farfan RN) 0836 (Not Given - Provider: Jemal Friend RN - Reason: Other - Comment: Patient discharging, wants to take once at home) folic acid (FOLVITE) tablet 1 mg 1 mg, Oral, DAILY, First dose on Wed01/10/25 at 0800 0817 ($Given - Provider: Alexsandra Farfan RN) 0836 (Not Given - Provider: Jemal Friend RN - Reason: Other - Comment: Patient discharging, wants to take once at home) hydromorphone (DILAUDID) injection 2 mg (COMPLETED) 2 mg, Intravenous, ONCE, On Wed01/09/25 at 1825, For 1 dose 1911 ($Given - Provider: Gudelia King RN) hydromorphone (DILAUDID) injection 2 mg (COMPLETED) 2 mg, Intravenous, ONCE, On Wed01/09/25 at 1945, For 1 dose 2038 ($Given - Provider: Dave Burciaga RN) hydromorphone (DILAUDID) injection 2 mg (COMPLETED) 2 mg, Intravenous, ONCE, On Wed01/09/25 at 2130, For 1 dose 2131 ($Given - Provider: Gudelia King, SOFIA) hydromorphone (DILAUDID) injection 2 mg (COMPLETED) 2 mg, Intravenous, ONCE, On Wed01/09/25 at 5, For 1 dose 2226 ($Given - Provider: Gudelia King RN) hydroxyurea (HYDREA) capsule 1,000 mg 1,000 mg, Oral, 2 TIMES DAILY, First dose on Wed01/10/25 at 0800, Indications: sickle cell disease, Do not crush May require hepatic and/or renal dose or frequency adjustments. See reference link for guidelines. 0816 ($Given - Provider: Alexsandra Farfan RN)1951 ($Given - Provider: Yuridia Franks RN) 0836 (Not Given - Provider: Jemal Friend RN - Reason: Other - Comment: Patient discharging, wants to take once at home) lactated ringers BOLUS 1,000 mL (COMPLETED) Intravenous, 1,000 mL, ONCE, at 1,000 mL/hr, Administer over 1 Hours, On Wed01/09/25 at 1825, For 1 dose 1912 ($New Bag - Provider: Gudelia King RN)2009 (Stopped - Provider: Gudelia King RN) multivitamin, therapeutic (THERA-VIT) tablet 1 tablet 1 tablet, Oral, DAILY, First dose on Wed01/10/25 at 0800 0816 ($Given - Provider: Alexsandra Farfan RN) 0836 (Not Given - Provider: Jemal Friend RN - Reason: Other - Comment: Patient discharging, wants to take once at home) ondansetron (ZOFRAN) injection 4 mg (COMPLETED) 4 mg, Intravenous, ONCE, Administer over 2-5 Minutes, On Wed01/09/25 at 1825, For 1 dose 1911 ($Given - Provider: Gudelia King RN) sodium chloride (PF) 0.9% PF flush 3 mL 3 mL, Intracatheter, EVERY 8 HOURS SCHEDULED, First dose on Wed01/10/25 at 0600, to lock peripheral IV dormant line 0519 (Not Given - Provider: Duke Olivares RN - Reason: IV Infusing)1334 ($Given - Provider: Valarie aGnnon RN)2321 (Not Given - Provider: Yuridia Franks RN - Reason: Patient sleeping) 0642 (Not Given - Provider: Yuridia Franks RN - Reason: Patient sleeping) Continuous Medication Order 01/09/2025 01/10/2025 01/11/2025 lactated ringers infusion () at 100 mL/hr, Intravenous, CONTINUOUS, Starting on Wed01/10/25 at 0020, Until Wed01/10/25 at 2019 0027 ($New Bag - Provider: Duke Olivares RN)0519 (Rate/Dose Verify - Provider: Duke Olivares RN)1130 (Rate/Dose Verify - Provider: Valarie Gannon RN)1335 ($New Bag - Provider: Valarie Gannon RN)2001 (Rate/Dose Verify - Provider: Yuridia Franks RN)2319 (Stopped - Provider: Yuridia Franks RN) PRN Medication Order 01/09/2025 01/10/2025 01/11/2025 acetaminophen (TYLENOL) Suppository 650 mg(Linked Group 1) 650 mg, Rectal, EVERY 4 HOURS PRN, mild pain, other, and adjunct with moderate or severe pain or per patient request, Starting on Wed01/10/25 at 0126, Alternate with ibuprofen if ordered. Maximum acetaminophen dose from all sources= 75 mg/kg/day or 4 g/day. 1130 (See Alternative - Provider: Valarie Gannon RN) acetaminophen (TYLENOL) tablet 650 mg(Linked Group 1) 650 mg, Oral, EVERY 4 HOURS PRN, mild pain, other, and adjunct with moderate or severe pain or per patient request, Starting on Wed01/10/25 at 0126, Alternate with ibuprofen if ordered. Maximum acetaminophen dose from all sources = 75 mg/kg/day not to exceed 4 grams/day. 1130 ($Given - Provider: Valarie Gannon RN) calcium carbonate (TUMS) chewable tablet 1,000 mg 1,000 mg, Oral, 4 TIMES DAILY PRN, heartburn, Starting on Wed01/10/25 at 0126 diphenhydrAMINE (BENADRYL) capsule 25 mg 25 mg, Oral, EVERY 6 HOURS PRN, itching, Starting on Wed01/10/25 at 0016 0027 ($Given - Provider: Duke Olivares RN)2001 ($Given - Provider: Yuridia Franks RN) hydromorphone (DILAUDID) injection 2 mg (CANCELED) 2 mg, Intravenous, EVERY 3 HOURS PRN, severe pain, Starting on Wed01/10/25 at 0015 0027 ($Given - Provider: Duke Olivares RN) hydromorphone (DILAUDID) injection 2 mg 2 mg, Intravenous, EVERY 2 HOURS PRN, severe pain, Starting on Wed01/10/25 at 0241 0244 ($Given - Provider: Duke Olivares RN)0444 ($Given - Provider: Duke Olivares RN)0643 ($Given - Provider: Duke Olivares RN)0907 ($Given - Provider: Tato Franks RN)1130 ($Given - Provider: Valarie Gannon RN)1332 ($Given - Provider: Valarie Gannon RN)1538 ($Given - Provider: Valarie Gannon RN)1742 ($Given - Provider: Valarie Gannon RN)1943 ($Given - Provider: Yuridia Franks RN)2115 ($Given - Provider: Yuridia Franks RN)2337 ($Given - Provider: Yuridia Franks RN) 0139 ($Given - Provider: Yuridia Franks RN)0320 ($Given - Provider: Yuridia Franks RN)0636 ($Given - Provider: Yuridia Franks RN) lidocaine (LMX4) cream Topical, EVERY 1 HOUR PRN, pain, with VAD insertion, Starting on Wed01/10/25 at 0126, Apply at least 30 minutes prior to [...] mild pain with VAD insertion, Starting on Wed01/10/25 at 0126, MAX dose 1 mL subcutaneous OR intradermal along the side of the vein in divided doses as needed for VAD insertion. Do NOT give if patient has a history of allergy to any local anesthetic or any horacio product. Do NOT use both lidocaine intradermal/subcutaneous injection and the lidocaine cream on the same site. naloxone (NARCAN) injection 0.2 mg(Linked Group 2) 0.2 mg, Intravenous, EVERY 2 MIN PRN, opioid reversal, Starting on Wed01/10/25 at 0749, Administer intravenous route when available and notify [...] 2 MIN PRN, opioid reversal, Starting on Wed01/10/25 at 0749, Administer intramuscular if an intravenous route is [...] 2 MIN PRN, opioid reversal, Starting on Wed01/10/25 at 0749, Administer intravenous route when available and notify [...] 2 MIN PRN, opioid reversal, Starting on Wed01/10/25 at 0749, Administer intramuscular if an intravenous route is [...] PRN, nausea/vomiting - 1st line, Starting on Wed01/10/25 at 0126, This is Step 1 of nausea and vomiting management. If nausea not resolved in 15 minutes, go to Step 2 prochlorperazine (COMPAZINE). With dry hands, peel back foil backing and gently remove tablet. Do not push oral disintegrating tablet through foil backing. Administer immediately on tongue and oral disintegrating tablet dissolves in seconds, then swallow with saliva. Liquid not required. 1147 (See Alternative - Provider: Valarie Gannon, SOFIA) ondansetron (ZOFRAN) injection 4 mg(Linked Group 3) 4 mg, Intravenous, EVERY 6 HOURS PRN, nausea/vomiting - 1st line, Administer over 2-5 Minutes, Starting on Wed01/10/25 at 0126, Give IF patient unable to tolerate oral medication. This is Step 1 of nausea and vomiting management. If nausea not resolved in 15 minutes, go to Step 2 prochlorperazine (COMPAZINE). 1147 ($Given - Provider: Valarie Gannon, SOFIA) polyethylene glycol (MIRALAX) Packet 17 g 17 g, Oral, 2 TIMES DAILY PRN, constipation, Starting on Wed01/10/25 at 0126, Step 2 bowel regimen 1 Packet = 17 grams. Mix each [...] 8.6-50 MG per tablet 1 tablet(Linked Group 4) 1 tablet, Oral, 2 TIMES DAILY PRN, constipation, Starting on Wed01/10/25 at 0126, If no bowel movement in 24 hours, [...] 8.6-50 MG per tablet 2 tablet(Linked Group 4) 2 tablet, Oral, 2 TIMES DAILY PRN, constipation, Starting on Wed01/10/25 at 0126, IF more than 1 constipation PRN medication [...] or to lock dormant line, Starting on Wed01/10/25 at 0126 Linked Groups Order Group 1: acetaminophen (TYLENOL) tablet 650 mgJump to med 650 mg, Oral, EVERY 4 HOURS PRN, mild pain, other, and adjunct with moderate or severe pain or per patient request, Starting on Wed01/10/25 at 0126, Alternate with ibuprofen if ordered. Maximum acetaminophen dose from all sources = 75 mg/kg/day not to exceed 4 grams/day. Or acetaminophen (TYLENOL) Suppository 650 mgJump to med 650 mg, Rectal, EVERY 4 HOURS PRN, mild pain, other, and adjunct with moderate or severe pain or per patient request, Starting on Wed01/10/25 at 0126, Alternate with ibuprofen if ordered. Maximum acetaminophen dose from all sources= 75 mg/kg/day or 4 g/day. Group 2: naloxone (NARCAN) injection 0.2 mgJump to med 0.2 mg, Intravenous, EVERY 2 MIN PRN, opioid reversal, Starting on Wed01/10/25 at 0749, Administer intravenous route when available and notify [...] 2 MIN PRN, opioid reversal, Starting on Wed01/10/25 at 0749, Administer intravenous route when available and notify [...] 2 MIN PRN, opioid reversal, Starting on Wed01/10/25 at 0749, Administer intramuscular if an intravenous route is [...] 2 MIN PRN, opioid reversal, Starting on Wed01/10/25 at 0749, Administer intramuscular if an intravenous route is [...] PRN, nausea/vomiting - 1st line, Starting on Wed01/10/25 at 0126, This is Step 1 of nausea and [...] line, Administer over 2-5 Minutes, Starting on Wed01/10/25 at 0126, Give IF patient unable to tolerate oral medication. This is Step 1 of nausea and vomiting management. If nausea not resolved in 15 minutes, go to Step 2 prochlorperazine (COMPAZINE). Group 4: senna-docusate (SENOKOT-S/PERICOLACE) 8.6-50 MG per tablet 1 tabletJump to med 1 tablet, Oral, 2 TIMES DAILY PRN, constipation, Starting on Wed01/10/25 at 0126, If no bowel movement in 24 hours, [...] 2 TIMES DAILY PRN, constipation, Starting on Wed01/10/25 at 0126, IF more than 1 constipation PRN medication is ordered, administer step-barriga as indicated, moving to the next step ONLY if prior step ineffective. Step 1: senna-docusate (SENOKOT-S; PERICOLACE) OR bisacodyl (DULCOLAX) EC tablet Step 2: polyethylene glycol (MIRALAX/GLYCOLAX) Step 3: bisacodyl (DULCOLAX) suppository Step 4: enema Hold for loose stools. 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 Start Date End Date Veronica Joseph MD [address] [place] [address] PCP - General Family Medicine 06/18/24 Mor Ramsey Medical Student 04/03/24 Case Samuel MD [address] [facility] [address] [place], [place] [id number] Assigned Pediatric Specialist Provider 05/18/24 Juhi Benson, RN Specialty Rn Sane Hematology & Oncology 05/29/24 Olinda Vora APRN RN [facility] [address] [place] [address] [id number] Assigned Cancer Care Provider 08/16/24 Stiven Stanley LP [address] [place] [address] Psychologist PSYCHOLOGIST CLINICAL 10/25/24 Star Galarza MD [facility] [address] [place] [address] Home Infusion Following Provider Infectious Diseases 11/07/24 documented as of this encounter
--- OUTSIDE RECORDS SUMMARY | 2025-01-12 19:34 | XMS_ITS | Encounter Summary ---
Author Organization [facility] Address [address] [place] [address]. [place] [address] Care Team Providers Care Waste Water Plant Operator Name Role Phone Roxy Mor Unavailable Unavailable Case Samuel MD Unavailable [phone] Juhi Benson RN Unavailable Unavailable Veronica Joseph MD Primary Care Provider [phone] Olinda Vora APRN ROLL UP GUIDER OPERATOR Unavailable [phone] Stiven Stanley LP Unavailable Star Galarza MD Unavailable [phone] Reason for Visit * Reason Comments Sickle Cell Pain Crisis Encounter Details Date Type Department Care Team (Late st Contact Info) Description 01/12/2025 7:34 PM CDT - 01/12/2025 11:31 PM CDT Emergency [facility] Emergency Department [address] [place] [phone] Payal Arriaga, [facility] [place] [address] Sickle cell pain crisis (H) (Primary Dx); Leukocytosis, unspecified type Discharge Disposition: Home or Self [...] in an overnight m[facility]p, or couch-surfing.) Yes 11/09/2024 Are you worried [...] file Legal Sex Female 8:25 AM BUSINESS ETHICS PROFESSOR Gender Identity Not on file Sexual Orientation Not on file documented as of this encounter Last Filed Vital Signs Vital Sign Reading Time Taken Comments Blood Pressure 93/64 01/12/2025 7:30 PM CDT Pulse 98 01/12/2025 7:30 PM CDT Temperature 36.7 C (98.1 F) 01/12/2025 7:30 PM CDT Respiratory Rate 20 01/12/2025 7:30 PM CDT Oxygen Saturation 98% 01/12/2025 7:30 PM CDT Inhaled Oxygen Concentration - - Weight - - Height - - Body Mass Index - - documented in this encounter Discharge Instructions * Discharge Instructions* Payal Arriaga DO - 01/12/2025 11:15 PM CDT As we discussed I am concerned for an infectious process because your white blood cell count is elevated however the rest of your labs look good. If you start to experience any infectious symptoms generalized weakness or increased pain please return immediately for evaluation * Attachments The following attachments cannot be sent through Care Everywhere. * WBC: Elevated: General Info (South Sudanese) * Sickle Cell Crisis ([place]ese) documented [...] 05/01/2024 naloxone (NARCAN) 4 MG/0.1ML nasal spray Isle 1 spray (4 mg) into one nostril [...] 01/17/20 25 documented as of this encounter ED Notes * Lebron Aponte RN - 01/12/2025 7:33 PM CDT Ambulatory for sickle cell pain crisis. Says it is the same as last time. Triage Assessment (Adult) Row Name 01/12/251932 Triage Assessment Airway WDL WDL Respiratory WDL Respiratory WDL WDL Skin Circulation/Temperature WDL Skin Circulation/Temperature WDL WDL Cardiac WDL Cardiac WDL WDL Peripheral/Neurovascular WDL Peripheral Neurovascular WDL WDL Cognitive/Neuro/Behavioral WDL Cognitive/Neuro/Behavioral WDL WDL * Payal Arriaga DO - 01/12/2025 7:28 PM CDT ED Provider Note [facility] History Chief Complaint Patient presents with Sickle Cell Pain Crisis HPI Gianna Hernández is a 29 year old female with a PMH of sickle cell disease, acute chest syndrome,CVA, cardiac thrombus associated with port, endocarditis, functional asplenia, upper extremity DVT (11/2023), bilateral PE (06/26/24) on Eliquis, transfusional iron overload previously, AVN left hip, retinopathy of the right eye, and anxiety who arrives in the ED with sickle cell pain crisis. Patient is reporting pain in her back and legs. This is typical for her pain crises. Patient was just discharged yesterday after being inpatient for intractable pain. Patient has compliant with her pain medications. She has been trying desperately to get seen on outpatient basis by hematology but feels as th ough she is not being listened to. Denies any drug or alcohol use. She denies any fevers chills lightheadedness syncope chest pain shortness of breath Trevon pain nausea vomiting diarrhea or other infectious symptoms. Of note patient recently was bacteremic and has had ports and PICC lines removed. She has completed her antibiotic course for this Past Medical History Past Medical History: Diagnosis Date Acute chest syndrome, history of multiple episodes, intubated once Avascular necrosis of left femur, history of Cholelithiasis Continuous opioid dependence Endocarditis, history of 11/2022 culture-negative, [facility] Functional asplenia History of stroke related to [...] all other systems negative. Physical Exam BP: 93/64 Pulse: 98 Temp: 98.1 ??F (36.7 ??C) Resp: 20 SpO2: 98 % Physical Exam Gen: Awake and alert, interactive and in no acute distress Head: Atraumatic Eyes: Anicteric, EOMI, YESSI Chest: No tenderness to palpation, no crepitus [...] or performed during the hospital encounter of 01/12/25 Comprehensive Metabolic Panel (Limited Occurrences) Result Value Ref Range Sodium 138 135 - 145 mmol/L Potassium 5.0 3.4 - 5.3 mmol/L Carbon Dioxide (CO2) 23 22 - 29 mmol/L Anion Gap 11 7 - 15 mmol/L Urea Nitrogen 13.1 6.0 - 20.0 mg/dL Creatinine 0.72 0.51 - 0.95 mg/dL GFR Estimate >90 >60 mL/min/1.73m2 Calcium 9.6 8.8 - 10.4 mg/dL Chloride 104 98 - 107 mmol/L Glucose 97 70 - 99 mg/dL Alkaline Phosphatase 98 40 - 150 U/L AST 56 (H) 0 - 45 U/L ALT 39 0 - 50 U/L Protein Total 8.6 (H) 6.4 - 8.3 g/dL Albumin 4.5 3.5 - 5.2 g/dL Bilirubin Total 1.6 (H) <=1.2 mg/dL Reticulocyte count Result Value Ref Range % Reticulocyte 7.65 (H) 0.50 - 2.00 % Absolute Reticulocyte 0.2188 (H) 0.0250 - 0.0950 10e6/uL CBC with platelets and differential Result Value Ref Range WBC Count 14.36 (H) 4.00 - 11.00 10e3/uL RBC Count 2.87 (L) 3.80 - 5.20 10e6/uL Hemoglobin 9.7 (L) 11.7 - 15.7 g/dL Hematocrit 28.8 (L) 35.0 - 47.0 % MCV 100.3 (H) 78.0 - 100.0 fL MCH 33.8 (H) 26.5 - 33.0 pg MCHC 33.7 31.5 - 36.5 g/dL RDW 17.5 (H) 10.0 - 15.0 % Platelet Count 737 (H) 150 - 450 10e3/uL % Neutrophils 62.8 % % Lymphocytes 26.5 % % Monocytes 8.8 % % Eosinophils 0.5 % % Basophils 0.8 % % Immature Granulocytes 0.6 % NRBCs per 100 WBC 0.6 <1.0 /100 Absolute Neutrophils 9.02 (H) 1.60 - 8.30 10e3/uL Absolute Lymphocytes 3.81 0.80 - 5.30 10e3/uL Absolute Monocytes 1.26 0.00 - 1.30 10e3/uL Absolute Eosinophils 0.07 0.00 - 0.70 10e3/uL Absolute Basophils 0.12 0.00 - 0.20 10e3/uL Absolute Immature Granulocytes 0.08 <=0.40 10e3/uL Absolute NRBCs 0.08 10e3/uL RBC and Platelet Morphology Result Value Ref Range RBC Morphology Confirmed RBC Indices Platelet Assessment Automated Count Confirmed. Platelet morphology is normal. Automated Count Confirmed. Platelet morphology is normal. Result Value Ref Range Procalcitonin 0.11 <0.50 ng/mL Lactic acid whole blood with 1x repeat in 2 hr when >2 Result Value Ref Range Lactic Acid, Initial 1.2 0.7 - 2.0 mmol/L UA with Microscopic reflex to Culture Specimen: Urine, Midstream Result Value Ref Range Color Urine Yellow Colorless, Straw, Light Yellow, Yellow Appearance Urine Slightly Cloudy (A) Clear Glucose Urine Negative Negative mg/dL Bilirubin Urine Negative Negative Ketones Urine Negative Negative mg/dL Specific Swengel Urine 1.015 1.003 - 1.035 Blood Urine Negative Negative pH Urine 6.5 5.0 - 7.0 Protein Albumin Urine Negative Negative mg/dL Urobilinogen Urine 2.0 (A) Normal mg/dL Nitrite Urine Negative Negative Leukocyte Esterase Urine Negative Negative Bacteria Urine Few (A) None Seen /HPF Mucus Urine Present (A) None Seen /LPF RBC Urine 0 <=2 /HPF WBC Urine <1 <=5 /HPF Squamous Epithelials Urine 15 (H) <=1 /HPF Medications lactated ringers BOLUS 1,000 mL (0 mLs Intravenous Stopped 01/12/25 4731) hydromorphone (DILAUDID) injection 2 mg (2 mg Intravenous $Given 01/12/25 6044) lactated ringers BOLUS 1,000 mL (0 mLs Intravenous Stopped 01/12/25 7210) Critical care was not performed. Medical Decision [...] not have any concern for acute chest syndrome or other emergent complication of sickle cell anemia. Patient treated per her pain plan Labs significant for leukocytosis. White count has doubled since yesterday. On reevaluation patientsays she feels better after the first dose of pain medications and endorses no infectious symptoms.At this point especially given her recent bacteremia I do believe further investigation warranted. Blood cultures drawn. Lactate and procalcitonin are normal. Urinalysis is normal. Patient declinedchest x-ray but is adamant that she does not have any respiratory symptoms. Patient is feeling better and would like to go. I do believe patient is reliable and will come back if she starts to feel worse. Patient discharged in stable condition I have reviewed the patient's discharge instructions [...] the patient. Discharge Medication List as of 01/12/2025 11:30 PM Final diagnoses: Sickle cell pain crisis (H) Leukocytosis, unspecified type Payal Charlton [facility] 01/12/2025 Payal Arriaga DO 01/13/25 0257 documented in this encounter Plan of Treatment Upcoming Encounters Date Type Department Care Team (Late st Contact Info) Description 02/15/2025 10:30 AM CDT Lab [facility] [address] [phone] Olinda Vora APRN [address] [id number] 02/15/2025 11:00 AM CDT Oncology Visit [facility] [address] [phone] Olinda Vora FEATHER MIXER ROLL UP GUIDER OPERATOR [address] [place], [place] [address] 04/09/2025 3:00 PM BUSINESS ETHICS PROFESSOR Lab [facility] [address] [place] [phone] Case Samuel MD [address] [place] [address] [address], [address] [place], [place] [address] 04/09/2025 3:30 PM BUSINESS ETHICS PROFESSOR Oncology Visit [address] [phone] Case Samuel MD [address] [place] [address], [address] [place], [place] [phone] documented as of this encounter Goals Goal [...] Date/Time Associated Diagnosis Comments BLOOD CULTURE STAT 01/12/2025 10:31 PM CDT LACTIC ACID WHOLE BLOOD WITH 1X REPEAT IN 2 HR WHEN >2 STAT 01/12/2025 10:30 PM CDT ROUTINE UA WITH MICROSCOPIC REFLEX TO CULTURE STAT 01/12/2025 10:18 PM CDT RBC AND PLATELET MORPHOLOGY STAT 01/12/2025 8:43 PM CDT CBC WITH PLATELETS AND DIFFERENTIAL STAT 01/12/2025 8:43 PM CDT CBC WITH PLATELETS AND DIFFERENTIAL (LIMITED OCCURRENCES) STAT 01/12/2025 8:43 PM CDT COMPREHENSIVE METABOLIC PANEL (LIMITED OCCURRENCES) STAT 01/12/2025 8:43 PM CDT PROCALCITONIN STAT 01/12/2025 8:43 PM CDT RETICULOCYTE COUNT STAT 01/12/2025 8: 43 PM CDT documented in this encounter Results * Blood Culture Peripheral blood (BC) Arm, Left (01/12/2025 10:31 PM CDT) Pathologist [facility] Culture No Growth 01/17/2025 11:31 PM CDT [facility] Peripheral blood (BC) STRUCTURE OF LEFT UPPER LIMB / Unknown Venipuncture / Unknown 01/12/2025 10:31 PM CDT 01/12/2025 10:37 PM CDT us Payal Arriaga DO LAB - MICRO GENERAL ORDERABLE S Final Result [facility] Inf. Diseases Diag. Lab [address] [facility], [address] [place] [address], [facility] * Lactic acid whole blood with 1x repeat in 2 hr when >2 (01/12/2025 10:30 PM CDT) Pathologist [facility] Lactic Acid, Initial 1.2 0.7 - 2.0 mmol/L 01/12/2025 10:42 PM CDT [facility] Blood BLOOD SPECIMEN / Unknown Venipuncture / Unknown 01/12/2025 10:30 PM CDT 01/12/2025 10:37 PM CDT Payal Latesha Bart REYES LAB - BLOOD ORDERABLES Final Result [facility] [place] [facility] Lab [address] [facility], Room [address] [phone] * (ABNORMAL) UA with Microscopic reflex to Culture (01/12/2025 10:18 PM CDT) Color Urine Yellow Colorless, Straw, Light Yellow, Yellow 01/12/2025 10:32 PM CDT [facility] Appearance Urine Slightly Cloudy(A) Clear 01/12/2025 10:32 PM CDT [facility] Glucose Urine Negative Negative mg/dL 01/12/2025 10:32 PM CDT [facility] Bilirubin Urine Negative Negative 10:32 PM CDT [facility] Ketones Urine Negative Negative mg/dL 01/12/2025 10:32 PM CDT [facility] Specific Swengel Urine 1.015 1.003 - 1.035 01/12/2025 10:32 PM CDT [facility] Blood Urine Negative Negative 01/12/2025 10:32 PM CDT [facility] pH Urine 6.5 5.0 - 7.0 01/12/2025 10:32 PM CDT [facility] Protein Albumin Urine Negative Negative mg/dL 01/12/2025 10:32 PM CDT [facility] Urobilinogen Urine 2.0(A) Normal mg/dL 01/12/2025 10:32 PM CDT [facility] Nitrite Urine Negative Negative 01/12/2025 10:32 PM CDT [facility] Leukocyte Esterase Urine Negative Negative 01/12/2025 10:32 PM CDT [facility] Bacteria Urine Few(A) None Seen /HPF 01/12/2025 10:32 PM CDT [facility] Mucus Urine Present(A) None Seen /LPF 01/12/2025 10:32 PM CDT [facility] RBC Urine 0 <=2 /HPF 01/12/2025 10:32 PM CDT [facility] WBC Urine <1 <=5 /HPF 01/12/2025 10:32 PM CDT [facility] Squamous Epithelials Urine 15(H) <=1 /HPF 01/12/2025 10:32 PM CDT [facility] Urine MID-STREAM URINE SPECIMEN / Unknown Non-blood Collection / Unknown 01/12/2025 10:18 PM CDT 01/12/2025 10:22 PM CDT Narrative [facility] - 01/12/2025 10:32 PM CDT Urine Culture not indicated Payal Latesha Bart DO LAB - URINE ORDERABLES Final Result [facility] Core Lab [address] [facility], [address] [place] [phone] * Procalcitonin (01/12/2025 8:43 PM CDT) Procalcitonin 0.11 <0.50 ng/mL 01/12/2025 10:28 PM CDT [facility] Comment: Interpretation and Recommendations [...] See Procalcitonin Guidance document for more details. [email or web address]/[email or web address] Factors that may affect PCT levels (not [...] BLOOD SPECIMEN / Unknown Venipuncture / Unknown 01/12/2025 8:43 PM CDT 01/12/2025 8:48 PM CDT Payal Arriaga DO LAB - BLOOD ORDERABLES Final Result Performing Organization Address [facility] de Phone Number LABORATORY [facility] [place] Core Lab [address] [facility], [address] * RBC and Platelet Morphology (01/12/2025 8:43 PM CDT) Pathologist [facility] RBC Morphology Confirmed RBC Indices 01/12/2025 10:46 PM CDT [facility] Platelet Assessment Automated Count Confirmed. Platelet morphology is normal. Automated Count Confirmed. Platelet morphology is normal. 01/12/2025 10:46 PM CDT [facility] Blood BLOOD SPECIMEN / Unknown Venipuncture / Unknown 01/12/2025 8:43 PM CDT 01/12/2025 8:48 PM CDT Payal Arriaga DO LAB - BLOOD ORDERABLES Final Result Performing Organization Address [facility] de Phone Number LABORATORY [facility] [place] Core Lab [address] [facility], [address] [place] [address] * (ABNORMAL) CBC with platelets and differential (01/12/2025 8:43 PM CDT) WBC Count 14.36(H) 4.00 - 11.00 10e3/uL 01/12/2025 10:46 PM CDT [facility] RBC Count 2.87(L) 3.80 - 5.20 10e6/uL 01/12/2025 10:46 PM CDT [facility] Hemoglobin 9.7(L) 11.7 - 15.7 g/dL 01/12/2025 10:46 PM CDT [facility] Hematocrit 28.8(L) 35.0 - 47.0 % 01/12/2025 10:46 PM CDT [facility] MCV 100.3(H) 78.0 - 100.0 fL 01/12/2025 10:46 PM CDT [facility] MCH 33.8(H) 26.5 - 33.0 pg 01/12/2025 10:46 PM CDT [facility] MCHC 33.7 31.5 - 36.5 g/dL 01/12/2025 10:46 PM CDT [facility] RDW 17.5(H) 10.0 - 15.0 % 01/12/2025 10:46 PM CDT [facility] Platelet Count 737(H) 150 - 450 10e3/uL 01/12/2025 10:46 PM CDT [facility] % Neutrophils 62.8 % 01/12/2025 10:46 PM CDT [facility] % Lymphocytes 26.5 % 01/12/2025 10:46 PM CDT [facility] % Monocytes 8.8 % 01/12/2025 10:46 PM CDT [facility] % Eosinophils 0.5 % 01/12/2025 10:46 PM CDT [facility] % Basophils 0.8 % 01/12/2025 10:46 PM CDT [facility] % Immature Granulocytes 0.6 % 01/12/2025 10:46 PM CDT [facility] NRBCs per 100 WBC 0.6 <1.0 /100 01/12/2025 10:46 PM CDT [facility] Absolute Neutrophils 9.02(H) 1.60 - 8.30 10e3/uL 01/12/2025 10:46 PM CDT [facility] Absolute Lymphocytes 3.81 0.80 - 5.30 10e3/uL 01/12/2025 10:46 PM CDT [facility] Absolute Monocytes 1.26 0.00 - 1.30 10e3/uL 01/12/2025 10:46 PM CDT [facility] Absolute Eosinophils 0.07 0.00 - 0.70 10e3/uL 01/12/2025 10:46 PM CDT [facility] Absolute Basophils 0.12 0.00 - 0.20 10e3/uL 01/12/2025 10:46 PM CDT [facility] Absolute Immature Granulocytes 0.08 <=0.40 10e3/uL 01/12/2025 10:46 PM CDT [facility] Absolute NRBCs 0.08 10e3/uL 01/12/2025 10:46 PM CDT [facility] Blood BLOOD SPECIMEN / Unknown Venipuncture / Unknown 01/12/2025 8:43 PM CDT 01/12/2025 8:48 PM CDT Payal Arriaga DO LAB - BLOOD ORDERABLES Final Result Performing Organization Address [facility]/ZIP [facility] de Phone Number LABORATORY [facility] Core Lab [address] [facility], [address] * (ABNORMAL) Reticulocyte count (01/12/2025 8:43 PM CDT) % Reticulocyte 7.65(H) 0.50 - 2.00 % 01/12/2025 8:55 PM CDT [facility] Absolute Reticulocyte 0.2188(H) 0.0250 - 0.0950 10e6/uL 01/12/2025 8:55 PM CDT [facility] Blood BLOOD SPECIMEN / Unknown Venipuncture / Unknown 01/12/2025 8:43 PM CDT 01/12/2025 8:48 PM CDT Payal Arriaga DO LAB - BLOOD ORDERABLES Final Result Performing Organization Address [facility] de Phone Number LABORATORY [facility] Core Lab [address] [facility], [address] * (ABNORMAL) Comprehensive Metabolic Panel (Limited Occurrences) (01/12/2025 8:43 PM CDT) Sodium 138 135 - 145 mmol/L 01/12/2025 9:16 PM CDT [facility] Potassium 5.0 3.4 - 5.3 mmol/L 01/12/2025 9:16 PM CDT [facility] Carbon Dioxide (CO2) 23 22 - 29 mmol/L 01/12/2025 9:16 PM CDT [facility] Anion Gap 11 7 - 15 mmol/L 01/12/2025 9:16 PM CDT [facility] Urea Nitrogen 13.1 6.0 - 20.0 mg/dL 01/12/2025 9:16 PM CDT [facility] Creatinine 0.72 0.51 - 0.95 mg/dL 01/12/2025 9:16 PM CDT [facility] GFR Estimate >90 >60 mL/min/1.7 3m2 01/12/2025 9:16 PM CDT [facility] Comment:eGFR calculated us2020 CKD-EPI equation. Calcium 9.6 8.8 - 10.4 mg/dL 01/12/2025 9:16 PM CDT [facility] Chloride 104 98 - 107 mmol/L 01/12/2025 9:16 PM CDT [facility] Glucose 97 70 - 99 mg/dL 01/12/2025 9:16 PM CDT [facility] Alkaline Phosphatase 98 40 - 150 U/L 01/12/2025 9:16 PM CDT [facility] AST 56(H) 0 - 45 U/L 01/12/2025 9:16 PM CDT [facility] ALT 39 0 - 50 U/L 01/12/2025 9:16 PM CDT [facility] Protein Total 8.6(H) 6.4 - 8.3 g/dL 01/12/2025 9:16 PM CDT [facility] Albumin 4.5 3.5 - 5.2 g/dL 01/12/2025 9:16 PM CDT [facility] Bilirubin Total 1.6(H) <=1.2 mg/dL 01/12/2025 9:16 PM CDT [facility] Blood BLOOD SPECIMEN / Unknown Venipuncture / Unknown 01/12/2025 8:43 PM CDT 01/12/2025 8:48 PM CDT us Payal Arriaga DO LAB - BLOOD ORDERABLES Final Result [facility] [place] [facility] Lab [address] [facility], [address] [place] [address], [facility] documented in this encounter Visit Diagnoses Diagnosis 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 Leukocytosis, unspecified type documented in this encounter Administered Medications Inactive Administered Medications - up to 3 most recent administrations Medication Order MAR Action Action Date Dose Rate Site hydromorphone (DILAUDID) injection 2 mg 2 mg, Intravenous, EVERY 1 HOUR PRN, severe pain, Starting on Wed01/12/25 at 1950, For 3 doses, Notify the provider to assess for uncontrolled pain or analgesic side effects. Hold while on IV OFFICE SERVICES COORDINATOR or with regular IV opioid dosing. $Given 01/12/2025 10:57 PM CDT 2 mg $Given 01/12/2025 9:54 PM CDT 2 mg $Given 01/12/2025 8:50 PM CDT 2 mg lactated ringers BOLUS 1,000 mL Intravenous, 1,000 mL, ONCE, at 500 mL/hr, Administer over 2 Hours, On Wed01/12/25 at 1955, For 1 dose $New Bag 01/12/2025 8:51 PM CDT 1,000 mLs 500 mL/hr lactated ringers BOLUS 1,000 mL Intravenous, 1,000 mL, ONCE, at 1,000 mL/hr, Administer over 1 Hours, On Wed01/12/25 at 2205, For 1 dose $New Bag 01/12/2025 10:28 PM CDT 1,000 mLs 1000 mL/hr ondansetron (ZOFRAN) injection 4 mg 4 mg, Intravenous, EVERY 30 MIN PRN, nausea/vomiting - 1st line, Administer over 2-5 Minutes, Starting on Wed01/12/25 at 1949, For 3 doses, May repeat in 30 minutes as needed, up to 3 doses. $Given 01/12/2025 8:51 PM CDT 4 mg documented in this encounter Active and Recently Administered Medications Times are shown in CDT. Scheduled Medication Order 01/10/2025 01/11/2025 01/12/2025 lactated ringers BOLUS 1,000 mL (COMPLETED) Intravenous, 1,000 mL, ONCE, at 500 mL/hr, Administer over 2 Hours, On Wed01/12/25 at 1955, For 1 dose 2050 ($New Bag - Pro vider: Timoteo Blount RN)[id number] (Stopped - Provider: Timoteo Blount RN) lactated ringers BOLUS 1,000 mL (COMPLETED) Intravenous, 1,000 mL, ONCE, at 1,000 mL/hr, Administer over 1 Hours, On Wed01/12/25 at 2205, For 1 dose 2228 ($New Bag - Pro vider: Timoteo Blount, SOFIA)2330 (Stopped - Provider: Timoteo Blount RN) PRN Medication Order 01/10/2025 01/11/2025 01/12/2025 hydromorphone (DILAUDID) injection 2 mg (COMPLETED) 2 mg, Intravenous, EVERY 1 HOUR PRN, severe pain, Starting on Wed01/12/25 at 1950, For 3 doses, Notify the provider to assess for uncontrolled pain or analgesic side effects. Hold while on IV OFFICE SERVICES COORDINATOR or with regular IV opioid dosing. 2049 ($Given - Provi nas: Timoteo Blount RN)2153 ($Given - Provider: Timoteo Blount RN)225 ($Given - Provider: Timoteo Blount RN) ondansetron (ZOFRAN) injection 4 mg 4 mg, Intravenous, EVERY 30 MIN PRN, nausea/vomiting - 1st line, Administer over 2-5 Minutes, Starting on Wed01/12/25 at 1949, For 3 doses, May repeat in 30 minutes as needed, up to 3 doses. 2050 ($Given - Provi nas: Timoteo Blount RN)223 (Not Given - Provider: Timoteo Blount RN - Reason: Patient/family refused) documented in this encounter Care Teams Waste Water Plant Operator Relationship Specialty Start Date End Date Veronica Joseph MD [address] [place] [address] PCP - General Family Medicine 06/18/24 Mor Ramsey Medical Student 04/03/24 Case Samuel MD [address] [facility] [address], [address] [place], [place] [phone] Assigned Pediatric Specialist Provider 05/18/24 Juhi Benson, SOFIA Specialty Dispensary Technician Hematology & Oncology 05/29/24 Olinda Vora APRN ROLL UP GUIDER OPERATOR [address] [place] [id number] Assigned Cancer Care Provider 08/16/24 Stiven Stanley LP [address] [place] [address] Psychologist PSYCHOLOGIST CLINICAL 10/25/24 Star Galarza MD [facility] [address] [place] [address] Home Infusion Following Provider Infectious Diseases 11/07/24 documented as of this encounter
--- OUTSIDE RECORDS SUMMARY | 2025-01-13 16:53 | XMS_ITS | Encounter Summary ---
Author Organization [facility] Address [address] [place] [address]. [place] [address] Care Team Providers Care Shape Brick Molder Name Role Phone RoxyElvirac Unavailable Unavailable Case Samuel MD Unavailable [phone] Juhi Benson RN Unavailable Unavailable Veronica Joseph MD Primary Care Provider [phone] Olinda Vora APRN [employer] Unavailable [phone] Stiven Stanley Unavailable Star Galarza MD Unavailable [phone] Reason for Visit * Reason Comments Sickle Cell Pain Crisis Encounter Details Date Type Department Care Team ([facility] st Contact Info) Description 01/13/2025 4:53 PM CDT - 01/13/2025 7:57 PM CDT Emergency [facility] Emergency Department [address] [place] [phone] Alex Manriquez MD [address] [place] [address] Sickle cell pain crisis (H) (Primary Dx) [...] in an overnight custodial, or couch-surfing.) Yes 11/09/2024 Are you worried [...] file Legal Sex 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 Gender Identity Not on file Sexual Orientation Not on file documented as of this encounter Last Filed Vital Signs Vital Sign Reading Time Taken Comments Blood Pressure 112/72 01/13/2025 4:43 PM CDT Pulse 72 01/13/2025 4:43 PM CDT Temperature 36.7 C (98.1 F) 01/13/2025 4:43 PM CDT Respiratory Rate 18 01/13/2025 4:43 PM CDT Oxygen Saturation 99% 01/13/2025 4:43 PM CDT Inhaled Oxygen Concentration - - Weight 49.9 kg (110 lb) 01/13/2025 4:43 PM CDT Height 154.9 cm (5' 1) 01/13/2025 4:48 PM CDT Body Mass Index 20.78 01/13/2025 4:43 PM CDT documented in this encounter Discharge [...] 05/01/2024 naloxone (NARCAN) 4 MG/0.1ML nasal spray [place] 1 spray (4 mg) into one nostril [...] as of this encounter ED Notes * Kellee Dutton RN - 01/13/2025 7:54 PM CDT Pt refused discharged vitals, she said she was fine and doing good and wanted to just live because her ride was here already. * Lynn Estrada RN - 01/13/2025 4:49 PM CDT Patient is ambulatory into triage with complaints with sickle cell pain crisis. She endorses this is her normal sickle cell pain with it being in her lower back and thighs. Hx of sickle cell. VSS andafebrile. * Alex Manriquez MD - 01/13/2025 4:47 PM CDT Images from the original note were not included. 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 Patient reports pain in her low back and bilateral thighs consistent with her prior sickle cell crises. No chest pain, shortness of breath, fevers, or cough. 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 Physical Exam BP: 112/72 Pulse: 72 Temp: 98.1 ??F (36.7 ??C) Resp: 18 [...] ED Course, Procedures, & Data Procedures Medications hydromorphone (DILAUDID) injection 2 mg (2 mg Intravenous $Given 01/13/251924) lactated ringers BOLUS 1,000 mL (1,000 mLs Intravenous $New Bag 01/13/251741) ondansetron (ZOFRAN) injection 4 mg (4 mg Intravenous $Given 01/13/251741) Critical care was not performed. Medical Decision [...] ED today with sickle cell pain. Patient is nontoxic-appearing on exam, his vital signs within normal limits. She is afebrile, has no chest pain or red flag symptoms today. She states that she does not think she needs lab draw today. Patient treated according to care plan and had improvement in symptoms. Subsequently discharged home with outpatient follow-up and return precautions. I have reviewed the nursing notes. I have reviewed the findings, diagnosis, plan and need for follow up with the patient. New Prescriptions No medications on file Final diagnoses: Sickle cell pain crisis (H) Alex Manriquez MD [facility] EM[facility]GENCY [facility]PARTMENT 01/13/2025 Alex Manriquez MD 01/13/251931 documented in this encounter Plan of Treatment Upcoming Encounters Date Type Department Care Team (Late st Contact Info) Description 02/15/2025 10:30 AM CDT Lab [facility] [address] [phone] Olinda Vora APRN [employer] [address] [place] [phone] 02/15/2025 11:00 AM CDT Oncology Visit [address] [phone] Olinda Vora APRN [employer] [address] [place] [address] 04/09/2025 3:00 PM HOME ENERGY AUDITOR Lab [facility] [address] [phone] Case Samuel MD [address] [place] [address] [address], [address] [place] [address] 04/09/2025 3:30 PM HOME ENERGY AUDITOR Oncology Visit [facility] [address] [place] [phone] Case Samuel MD [address] [facility] [address], [address] [place], [place] [phone] documented as of this encounter Goals Goal [...] mg, Intravenous, EVERY HOUR, First dose on 01/13/25 at 1700, For 3 doses $Given 01/13/2025 7:25 PM CDT 2 mg $Given 01/13/2025 6:27 PM CDT 2 mg $Given 01/13/2025 5:43 PM CDT 2 mg lactated ringers BOLUS 1,000 mL Intravenous, 1,000 mL, ONCE, at 1,000 mL/hr, Administer over 1 Hours, On 01/13/25 at 1650, For 1 dose $New Bag 01/13/2025 5:42 PM CDT 1,000 mLs 1000 mL/hr ondansetron (ZOFRAN) injection 4 mg 4 mg, Intravenous, ONCE, Administer over 2-5 Minutes, On 01/13/25 at 1650, For 1 dose $Given 01/13/2025 5:42 PM CDT 4 mg documented in this encounter Active and Recently Administered Medications Times are shown in CDT. Scheduled Medication Order 01/11/2025 01/12/2025 01/13/2025 hydromorphone (DILAUDID) injection 2 mg (COMPLETED) 2 mg, Intravenous, EVERY HOUR, First dose on 01/13/25 at 1700, For 3 doses 1743 ($Given - Provi nas: Hemal Haines RN)1827 ($Given - Provider: Hemal Haines RN)1925 ($Given - Provider: Hemal Haines RN) lactated ringers BOLUS 1,000 mL (COMPLETED) Intravenous, 1,000 mL, ONCE, at 1,000 mL/hr, Administer over 1 Hours, On 01/13/25 at 1650, For 1 dose 1742 ($New Bag - Pro vider: Hemal Haines RN)1935 (Stopped - Provider: Kellee Gunderson Chi, RN) ondansetron (ZOFRAN) injection 4 mg (COMPLETED) 4 mg, Intravenous, ONCE, Administer over 2-5 Minutes, On 01/13/25 at 1650, For 1 dose 1742 ($Given - Provi nas: Hemal Hanies RN) documented in this encounter Care Teams Shape Brick Molder Relationship Specialty Start Date End Date Veronica Joseph MD [address] [place] [address] PCP - General Family Medicine 06/18/24 Mor Ramsey Medical Student 04/03/24 Case Samuel MD [address] [facility] [address], [address] [place], [place] [phone] Assigned Pediatric Specialist Provider 05/18/24 Juhi Benson, SOFIA Specialty Furnace Room Supervisor Hematology & Oncology 05/29/24 Olinda Vora APRN [employer] [address] [place] [id number] Assigned Cancer Care Provider 08/16/24 Stiven Stanley LP [address] [facility] [place] [address] Psychologist PSYCHOLOGIST CLINICAL 10/25/24 Star Galarza MD [facility] [address] [address] [place] [address] Home Infusion Following Provider Infectious Diseases 11/07/24 documented as of this encounter
--- OUTSIDE RECORDS SUMMARY | 2025-01-14 11:14 | XMS_ITS | Encounter Summary ---
Author Organization [facility] Address [address] [place] [address]. [place] [address] Care Team Providers Care Solution Coordinator Name Role Phone Roxy Mor Unavailable Unavailable Case Samuel MD Unavailable [phone] Juhi Benson RN Unavailable Unavailable Veronica Joseph MD Primary Care Provider [phone] Olinda Vora APRN WELDING TECHNICIAN Unavailable [phone] Stiven Stanley Unavailable Star Galarza MD Unavailable [phone] Reason for Visit * Reason Comments Sickle Cell Pain Crisis Encounter Details Date Type Department Care Team ([facility] Contact Info) Description 01/14/2025 11:14 AM CDT - 01/14/2025 2:30 PM CDT Emergency [facility] Emergency Department [address] [place] [phone] Lenin Rainey MD [address] [place] [address] Sickle cell pain crisis (H) (Primary Dx) [...] in an overnight fci, or couch-surfing.) Yes 11/09/2024 Are you worried [...] file 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 Gender Identity Not on file Sexual Orientation Not on file documented as of this encounter Last Filed Vital Signs Vital Sign Reading Time Taken Comments Blood Pressure 108/75 01/14/2025 2:01 PM CDT Pulse 89 01/14/2025 2:01 PM CDT Temperature 36.5 C (97.7 F) 01/14/2025 11:14 AM CDT Respiratory Rate 18 01/14/2025 2:01 PM CDT Oxygen Saturation 100% 01/14/2025 2:01 PM CDT Inhaled Oxygen Concentration - - [...] 05/01/2024 naloxone (NARCAN) 4 MG/0.1ML nasal spray [place] 1 spray (4 mg) into one nostril [...] as of this encounter ED Notes * Lenin Rainey MD - 01/14/2025 2:39 PM CDT ED Provider Note [facility] History Chief Complaint Patient presents with Sickle Cell Pain Crisis HPI Gianna Hernández is a 29 year old female with a history of sickle cell disease presenting with typical distribution of sickle cell pain to lower back. No chest pain or fevers. Has been compliant with her pain medicine at home and does have appropriate medications at home but has not been coveringher pain needs. Of note patient has been seen in our ED almost daily for the past month and I did in struct patient that is important that she follow-up with her heme-onc team to discuss pain management needs. Physical Exam BP: 97/65 Pulse: 90 Temp: 97.7 ??F (36.5 ??C) Resp: 16 SpO2: 98 % Physical Exam Vitals and nursing note reviewed. Constitutional: General: She is not in acute distress. Cardiovascular: Rate and Rhythm: Normal rate. Pulmonary: Effort: Pulmonary effort is normal. Skin: General: Skin is warm and dry. Neurological: Mental Status: She is alert. ED Course, Procedures, & Data ED Course as of 01/14/25 1442 Sun Jan 14, 2025 1303 Hemoglobin(!): 8.4 Reduced from 9.7 two days ago 1304 Placed from 7.65 two days ago Procedures Results for orders placed or performed during the hospital encounter of 01/14/25 Reticulocyte count Result Value Ref Range % Reticulocyte 7.82 (H) 0.50 - 2.00 % Absolute Reticulocyte 0.1924 (H) 0.0250 - 0.0950 10e6/uL Basic Metabolic Panel (Limited Occurrences) Result Value Ref Range Sodium 140 135 - 145 mmol/L Potassium 4.2 3.4 - 5.3 mmol/L Chloride 105 98 - 107 mmol/L Carbon Dioxide (CO2) 24 22 - 29 mmol/L Anion Gap 11 7 - 15 mmol/L Urea Nitrogen 9.5 6.0 - 20.0 mg/dL Creatinine 0.72 0.51 - 0.95 mg/dL GFR Estimate >90 >60 mL/min/1.73m2 Calcium 9.4 8.8 - 10.4 mg/dL Glucose 94 70 - 99 mg/dL CBC with platelets and differential Result Value Ref Range WBC Count 9.57 4.00 - 11.00 10e3/uL RBC Count 2.46 (L) 3.80 - 5.20 10e6/uL Hemoglobin 8.4 (L) 11.7 - 15.7 g/dL Hematocrit 24.5 (L) 35.0 - 47.0 % MCV 99.6 78.0 - 100.0 fL MCH 34.1 (H) 26.5 - 33.0 pg MCHC 34.3 31.5 - 36.5 g/dL RDW 17.4 (H) 10.0 - 15.0 % Platelet Count 708 (H) 150 - 450 10e3/uL % Neutrophils 72.3 % % Lymphocytes 14.0 % % Monocytes 12.1 % % Eosinophils 0.5 % % Basophils 0.8 % % Immature Granulocytes 0.3 % NRBCs per 100 WBC 1.8 (H) <1.0 /100 Absolute Neutrophils 6.91 1.60 - 8.30 10e3/uL Absolute Lymphocytes 1.34 0.80 - 5.30 10e3/uL Absolute Monocytes 1.16 0.00 - 1.30 10e3/uL Absolute Eosinophils 0.05 0.00 - 0.70 10e3/uL Absolute Basophils 0.08 0.00 - 0.20 10e3/uL Absolute Immature Granulocytes 0.03 <=0.40 10e3/uL Absolute NRBCs 0.17 10e3/uL Medications ondansetron (ZOFRAN) injection 4 mg (has no administration in time range) lactated ringers BOLUS 1,000 mL (0 mLs Intravenous Stopped 01/14/25 1356) hydromorphone (DILAUDID) injection 2 mg (2 mg Intravenous $Given 01/14/25 1400) Critical care was not performed. Medical Decision Making The patient's presentation was of low complexity (an acute and uncomplicated illness or injury). The patient's evaluation involved: review of [...] controlled substance). Assessment & Plan 29-year-old female presenting with typical sickle cell pain crisis distribution without chest pain or fevers minimal concerns for ACS or infectious etiologies. Patient's listed pain protocol followedwith IV Dilaudid and IV fluids with improvement in symptoms after 3 doses of Dilaudid. It was noted that patient has scheduled CBC and BMP by outpatient follow-up/was obtained today. Hemoglobin slightly reduced but without needs for acute transfusion at this time. Reticulocyte of 7.82 slightly increased but not necessarily concerning of severe sickle cell crisis. BMP without significant electrolyte abnormalities or signs of ANGIE Due to patient's pain she is discharged home I have reviewed the nursing notes. I have reviewed the findings, diagnosis, plan and need for follow up with the patient. New Prescriptions No medications on file Final diagnoses: Sickle cell pain crisis (H) Lenin Rainey [facility] EMERGENCY DEPARTMENT 01/14/2025 Lenin Rainey MD 01/14/25 1442 * Vineet Peters RN - 01/14/2025 11:15 AM CDT PT arrives c/o 10/10 BLE and lower back pain consistent with her sickle cell pain. Triage Assessment (Adult) Row Name 01/14/25 1115 Triage Assessment Airway WDL WDL Respiratory WDL Respiratory WDL WDL Skin Circulation/Temperature WDL Skin Circulation/Temperature WDL WDL Cardiac WDL Cardiac WDL WDL Peripheral/Neurovascular WDL Peripheral Neurovascular WDL WDL Cognitive/Neuro/Behavioral WDL Cognitive/Neuro/Behavioral WDL WDL documented in this encounter Plan of Treatment Upcoming Encounters Date Type Department Care Team (Late st Contact Info) Description 02/15/2025 10:30 AM CDT Lab [facility] Cancer [address] [phone] Olinda Vora APRN WELDING TECHNICIAN [address] [place] [address] 02/15/2025 11:00 AM CDT Oncology Visit [facility] [address] [phone] Olinda Vora APRN WELDING TECHNICIAN [address] [place] [phone] 04/09/2025 3:00 PM ENGINEERING OPERATOR Lab [facility] Cancer [address] [phone] Case Samuel MD [address] [place] [address] 484, [address] [place], [place] [phone] 04/09/2025 3:30 PM ENGINEERING OPERATOR Oncology Visit [facility] Cancer [address] [phone] Case Samuel MD [address] [place] [address] 484, [address] [place], [place] [address] documented as of this encounter Goals Goal Patient Goal Type Associated Problems Recent Progress Patient-Stated? Author Pain Management General On track( 025 2:37 PM CDT) Yes Juhi Benson RN Note: [...] Comments CBC WITH PLATELETS AND DIFFERENTIAL STAT 01/14/2025 11:54 AM CDT CBC WITH PLATELETS AND DIFFERENTIAL (LIMITED OCCURRENCES) STAT 01/14/2025 11:54 AM CDT BASIC METABOLIC PANEL (LIMITED OCCURRENCES) STAT 01/14/2025 11:54 AM CDT RETICULOCYTE COUNT STAT 01/14/2025 11 :54 AM CDT documented in this encounter Results * (ABNORMAL) CBC with platelets and differential (01/14/2025 11:54 AM CDT) [facility] WBC Count 9.57 4.00 - 11.00 10e3/uL 01/14/2025 12:38 PM CDT [facility] RBC Count 2.46(L) 3.80 - 5.20 10e6/uL 01/14/2025 12:38 PM CDT [facility] Hemoglobin 8.4(L) 11.7 - 15.7 g/dL 01/14/2025 12:38 PM CDT [facility] Hematocrit 24.5(L) 35.0 - 47.0 % 01/14/2025 12:38 PM CDT [facility] MCV 99.6 78.0 - 100.0 fL 01/14/2025 12:38 PM CDT [facility] MCH 34.1(H) 26.5 - 33.0 pg 01/14/2025 12:38 PM CDT [facility] MCHC 34.3 31.5 - 36.5 g/dL 01/14/2025 12:38 PM CDT [facility] RDW 17.4(H) 10.0 - 15.0 % 01/14/2025 12:38 PM CDT [facility] Platelet Count 708(H) 150 - 450 10e3/uL 01/14/2025 12:38 PM CDT [facility] % Neutrophils 72.3 % 01/14/2025 12:38 PM CDT [facility] % Lymphocytes 14.0 % 01/14/2025 12:38 PM CDT [facility] % Monocytes 12.1 % 01/14/2025 12:38 PM CDT [facility] % Eosinophils 0.5 % 01/14/2025 12:38 PM CDT [facility] % Basophils 0.8 % 01/14/2025 12:38 PM CDT [facility] % Immature Granulocytes 0.3 % 01/14/2025 12:38 PM CDT [facility] NRBCs per 100 WBC 1.8(H) <1.0 /100 025 12:38 PM CDT [facility] Absolute Neutrophils 6.91 1.60 - 8.30 10e3/uL 01/14/2025 12:38 PM CDT [facility] Absolute Lymphocytes 1.34 0.80 - 5.30 10e3/uL 01/14/2025 12:38 PM CDT [facility] Absolute Monocytes 1.16 0.00 - 1.30 10e3/uL 01/14/2025 12:38 PM CDT [facility] Absolute Eosinophils 0.05 0.00 - 0.70 10e3/uL 01/14/2025 12:38 PM CDT [facility] Absolute Basophils 0.08 0.00 - 0.20 10e3/uL 01/14/2025 12:38 PM CDT [facility] Absolute Immature Granulocytes 0.03 <=0.40 10e3/uL 01/14/2025 12:38 PM CDT [facility] Absolute NRBCs 0.17 10e3/uL 01/14/2025 12:38 PM CDT [facility] Blood BLOOD SPECIMEN / Unknown Venipuncture / Unknown 01/14/2025 11:54 AM CDT 01/14/2025 12:32 PM CDT us Lenin Rainey MD LAB - BLOOD ORDERABLES F inal Result [facility] [place] Core Lab [address] [facility] [address] Building, Room [address] [place] [phone] * Basic Metabolic Panel (Limited Occurrences) (01/14/2025 11:54 AM CDT) Sodium 140 135 - 145 mmol/L 01/14/2025 12:58 PM CDT [facility] Potassium 4.2 3.4 - 5.3 mmol/L 01/14/2025 12:58 PM CDT [facility] Chloride 105 98 - 107 mmol/L 01/14/2025 12:58 PM CDT [facility] Carbon Dioxide (CO2) 24 22 - 29 mmol/L 01/14/2025 12:58 PM CDT [facility] Anion Gap 11 7 - 15 mmol/L 01/14/2025 12:58 PM CDT [facility] Urea Nitrogen 9.5 6.0 - 20.0 mg/dL 01/14/2025 12:58 PM CDT [facility] Creatinine 0.72 0.51 - 0.95 mg/dL 01/14/2025 12:58 PM CDT [facility] GFR Estimate >90 >60 mL/min/1.7 3m2 01/14/2025 12:58 PM CDT [facility] Comment:eGFR calculated 2020 CKD-EPI equation. Calcium 9.4 8.8 - 10.4 mg/dL 01/14/2025 12:58 PM CDT [facility] Glucose 94 70 - 99 mg/dL 01/14/2025 12:58 PM CDT [facility] Blood BLOOD SPECIMEN / Unknown Venipuncture / Unknown 01/14/2025 11:54 AM CDT 01/14/2025 12:31 PM CDT us Lenin Rainey MD LAB - BLOOD ORDERABLES F inal Result [facility] [place] [facility] Lab [address] [facility] [address] Building, Room [address] [place] [phone] * (ABNORMAL) Reticulocyte count (01/14/2025 11:54 AM CDT) % Reticulocyte 7.82(H) 0.50 - 2.00 % 01/14/2025 12:38 PM CDT [facility] Absolute Reticulocyte 0.1924(H) 0.0250 - 0.0950 10e6/uL 01/14/2025 12:38 PM CDT [facility] Blood BLOOD SPECIMEN / Unknown Venipuncture / Unknown 01/14/2025 11:54 AM CDT 01/14/2025 12:32 PM CDT us Lenin Rainey MD LAB - BLOOD ORDERABLES F inal Result [facility] [place] Core Lab [address] [facility], [address] [place] [address], [facility] documented in this [...] PRN, moderate pain, severe pain, Starting on 01/14/25 at 1129, For 3 doses, Notify the provider to assess for uncontrolled pain or analgesic side effects. Hold while on IV LABORATORY ASSOCIATE or with regular IV opioid dosing. $Given 01/14/2025 2:00 PM CDT 2 mg $Given 01/14/2025 12:50 PM CDT 2 mg $Given 01/14/2025 11:47 AM CDT 2 mg lactated ringers BOLUS 1,000 mL Intravenous, 1,000 mL, ONCE, at 1,000 mL/hr, Administer over 1 Hours, On 01/14/25 at 1135, For 1 dose $New Bag 01/14/2025 11:46 AM CDT 1,000 mLs 1000 mL/hr ondansetron (ZOFRAN) injection 4 mg 4 mg, Intravenous, EVERY 30 MIN PRN, nausea/vomiting - 1st line, Administer over 2-5 Minutes, Starting on 01/14/25 at 1128, For 3 doses, May repeat in 30 minutes as needed, up to 3 doses. documented in this encounter Active and Recently Administered Medications Times are shown in CDT. Scheduled Medication Order 01/12/2025 01/13/2025 01/14/2025 lactated ringers BOLUS 1,000 mL (COMPLETED) Intravenous, 1,000 mL, ONCE, at 1,000 mL/hr, Administer over 1 Hours, On 01/14/25 at 1135, For 1 dose 1146 ($New Bag - Pro vider: Gus Roth RN)1356 (Stopped - Provider: Gus Roth RN) PRN Medication Order 01/12/2025 01/13/2025 01/14/2025 hydromorphone (DILAUDID) injection 2 mg (COMPLETED) 2 mg, Intravenous, EVERY 1 HOUR PRN, moderate pain, severe pain, Starting on 01/14/25 at 1129, For 3 doses, Notify the provider to assess for uncontrolled pain or analgesic side effects. Hold while on IV LABORATORY ASSOCIATE or with regular IV opioid dosing. 1147 ($Given - Provi nas: Gus Roth RN)1250 ($Given - Provider: Gus Roth RN)1400 ($Given - Provider: Gus Roth RN) ondansetron (ZOFRAN) injection 4 mg 4 mg, Intravenous, EVERY 30 MIN PRN, nausea/vomiting - 1st line, Administer over 2-5 Minutes, Starting on 01/14/25 at 1128, For 3 doses, May repeat in 30 minutes as needed, up to 3 doses. documented in this encounter Care Teams Solution Coordinator Relationship Specialty Start Date End Date Veronica Joseph MD [address] [place] [address] PCP - General Family Medicine 06/18/24 Mor Ramsey Medical Student 04/03/24 Case Samuel MD [address] [facility] [address], [address] [place], [place] [address] Assigned Pediatric Specialist Provider 05/18/24 Juhi Benson, SOFIA Specialty Medical Accounts Receivable Specialist Hematology & Oncology 05/29/24 Olinda Vora APRN WELDING TECHNICIAN [address] [place] [address] Assigned Cancer Care Provider 08/16/24 Stiven Stanley LP [address] [place] [address] Psychologist PSYCHOLOGIST CLINICAL 10/25/24 Star Galarza MD [facility] [address] [place] [address] Home Infusion Following Provider Infectious Diseases 11/07/24 documented as of this encounter
--- OUTSIDE RECORDS SUMMARY | 2025-01-15 20:31 | XMS_ITS | Encounter Summary ---
Author Organization [facility] Address [address] [place] [address]. [place] [address] Care Team Providers Care Wet Chemistry Analyst Name Role Phone RoxyElvirac Unavailable Unavailable Case Samuel MD Unavailable [phone] Juhi Benson RN Unavailable Unavailable Veronica Joseph MD Primary Care Provider [phone] Olinda Vora APRN BASTING MARKER Unavailable [phone] Stiven Stanley Unavailable Star Galarza MD Unavailable [phone] Reason for Visit * Reason Comments Sickle Cell Pain Crisis Encounter Details Date Type Department Care Team ([facility] st Contact Info) Description 01/15/2025 8:31 PM CDT - 01/15/2025 11:27 PM CDT Emergency 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 * Sickle Cell Crisis ([place]) documented in this encounter Medications at Time [...] 05/01/2024 naloxone (NARCAN) 4 MG/0.1ML nasal spray [place] 1 spray (4 mg) into one nostril [...] 01/17/20 25 documented as of this encounter Consult Notes * Reyna Henry RN - 01/15/2025 9:04 PM CDTAssociated Order(s): CONSULT FOR INPATIENT VASCULAR ACCESS CARE Summary: PIV Consult received for Vascular Access Team. See LDA for details. For additional needs place Consultfor Inpatient Vascular Access Care [id number] order in [facility]. documented in this encounter ED Notes * Alex Morton MD - 01/15/2025 8:38 PM CDT ED Provider Note [facility] History Chief Complaint Patient presents with Sickle Cell Pain Crisis HPI Gianna Hernández is a 29 year old female with a PMH of sickle cell disease with crisis who arrives in the ED with sickle cell pain flare. No chest pain shortness of breath fevers cough or other concerning symptoms for acute chest endorsed by the patient. The patient describes pain in typical location in back and legs. She denies other acute concerns today. 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 Physical Exam BP: 108/67 Pulse: 90 Temp: 98.9 ??F (37.2 ??C) Resp: 16 SpO2: 93 % Physical Exam Vital Signs Reviewed Gen: Well nourished, well developed, resting comfortably, no acute distress HEENT: NC/AT, PERRL, EOMI, MMM Neck: Supple, FROM CV: Regular Rate Lungs/Chest: Normal Effort Abd: Non-distended MSK/Back: FROM, no visible deformity Neuro: A&Ox3, GCS 15, CN II-XII unremarkable. Strength and sensation globally intact. Skin: Warm, Dry, Intact, no visible lesions ED Course, Procedures, & Data Procedures Medications hydromorphone (DILAUDID) injection 2 mg (2 mg Intravenous $Given 01/15/252321) lactated ringers BOLUS 1,000 mL (0 mLs Intravenous Stopped 01/15/252318) ondansetron (ZOFRAN) injection 8 mg (8 mg Intravenous Not Given 01/15/252104) Critical care was not performed. Medical Decision Making The patient's presentation was of high complexity (a chronic illness severe exacerbation, progression, or side effect of treatment). The patient's evaluation involved: review of external note(s) from 1 sources ([facility] ED yesterday evening) The patient's management necessitated high risk (a parenteral controlled substance). Assessment & Plan Gianna Hernández is a 29 year old female with a PMH of sickle cell disease with crisis who arrives in the ED with sickle cell pain flare. Afebrile with reassuring vital signs. Denies any symptoms consistent with acute chest. Care plan reviewed and initiated. After completion of care plan patient reports pain is improving and would like to discharge. Know she needs to follow-up with oncology, has appointment with MILLER Cohen tomorrow. Left prior to receiving AVS. I have reviewed the nursing notes. I have reviewed the findings, diagnosis, plan and need for follow up with the patient. Discharge Medication List as of 01/15/2025 11:27 PM Final diagnoses: Sickle cell pain crisis (H) Alex Morton Jr., MD [facility] 01/15/2025 Alex Morton MD 01/15/25 [id number] * Shauna Pardo RN - 01/15/2025 8:31 PM CDT ED with complaints of sickle cell pain that started today. Denies complaints of chest pain or shortness of breath. Triage Assessment (Adult) Row Name 01/15/252029 Triage Assessment Airway WDL WDL Respiratory WDL Respiratory WDL WDL Skin Circulation/Temperature WDL Skin Circulation/Temperature WDL WDL Cardiac WDL Cardiac WDL WDL Peripheral/Neurovascular WDL Peripheral Neurovascular WDL WDL Cognitive/Neuro/Behavioral WDL Cognitive/Neuro/Behavioral WDL WDL [place] Coma Scale Best Eye Response 4-->(E4) spontaneous Best Motor Response 6-->(M6) obeys commands Best Verbal Response 5-->(V5) oriented [place] Coma Scale Score 15 documented in this encounter Plan of Treatment Upcoming Encounters Date Type Department Care Team (Late st Contact Info) Description 02/15/2025 10:30 AM CDT Lab [facility] [address] [phone] Olinda Vora APRN BASTING MARKER [address] [place] [phone] 02/15/2025 11:00 AM CDT Oncology Visit [facility] [address] [phone] Olinda Vora APRN BASTING MARKER [address] [place] [phone] 04/09/2025 3:00 PM PAPER CUTTER Lab [facility] [address] [phone] Case Samuel MD [address] [place] [address], [address] [place] [address] 04/09/2025 3:30 PM PAPER CUTTER Oncology Visit [facility] [address] [phone] Case Samuel MD [address] [place] [address], [address] [place] [address] documented as of this encounter Goals Goal [...] 1 HOUR PRN, severe pain, Starting on Wed01/15/25 at 4, For 3 doses $Given 01/15/2025 11:22 PM CDT 2 mg $Given 01/15/2025 10:18 PM CDT 2 mg $Given 01/15/2025 9:04 PM CDT 2 mg lactated ringers BOLUS 1,000 mL Intravenous, 1,000 mL, ONCE, at 500 mL/hr, Administer over 2 Hours, On Wed01/15/25 at 2040, For 1 dose $New Bag 01/15/2025 9:05 PM CDT 1,000 mLs 500 mL/hr documented in this encounter Active and Recently Administered Medications Times are shown in CDT. Scheduled Medication Order 01/13/2025 01/14/2025 01/15/2025 lactated ringers BOLUS 1,000 mL (COMPLETED) Intravenous, 1,000 mL, ONCE, at 500 mL/hr, Administer over 2 Hours, On Wed01/15/25 at 2040, For 1 dose 2104 ($New Bag - Pro vider: Juliana Das, RN)[phone] (Stopped - Provider: Prakash Taveras, SOFIA) PRN Medication Order 01/13/2025 01/14/2025 01/15/2025 hydromorphone (DILAUDID) injection 2 mg (COMPLETED) 2 mg, Intravenous, EVERY 1 HOUR PRN, severe pain, Starting on Wed01/15/25 at 2033, For 3 doses 2103 ($Given - Provi nas: Juliana Das, SOFIA)221 ($Given - Provider: Prakash Taveras, RN)232 ($Given - Provider: Prakash Taveras, SOFIA) documented in this encounter Care Teams Wet Chemistry Analyst Relationship Specialty Start Date End Date Veronica Joseph MD [address] [place] [address] PCP - General Family Medicine 06/18/24 Roxy Mor Medical Student 04/03/24 Case Samuel MD [address] [facility] [address] [place], [place] [address] Assigned Pediatric Specialist Provider 05/18/24 Juhi Benson, SOFIA Specialty Automatic Spinning Lathe Setter Hematology & Oncology 05/29/24 Olinda Vora APRN BASTING MARKER [address] [place], [place] [address] Assigned Cancer Care Provider 08/16/24 Stiven Stanley LP [address] [place], [place] [id number] Psychologist PSYCHOLOGIST CLINICAL 10/25/24 Star Galarza MD [employer] [facility] [place], [place] [address] Home Infusion Following Provider Infectious Diseases 11/07/24 documented as of this encounter
--- OUTSIDE RECORDS SUMMARY | 2025-01-17 21:42 | XMS_ITS | Encounter Summary ---
Author Organization [place] Address [address] [place] [address]. [place] [address] Care Team Providers Care Renovation Plant Supervisor Name Role Phone RoxyElvirac Unavailable Unavailable Case Samuel MD Unavailable [phone] Juhi Benson RN Unavailable Unavailable Veronica Joseph MD Primary Care Provider [phone] Olinda Vora APRN BUSINESS PLANNING MANAGER Unavailable [phone] Stiven Stanley Unavailable Star Galarza MD Unavailable [phone] Reason for Visit * Reason Comments Sickle Cell Pain Crisis Encounter Details Date Type Department Care Team ([facility] st Contact Info) Description 01/17/2025 9:42 PM CDT - 01/18/2025 12:40 AM CDT Emergency [facility] Emergency Department [address] [place] [address] Marguerite Burgess MD [address] [place] [id number] Sickle cell pain crisis (H) (Primary Dx) [...] on file Legal Sex Female 8:25 AM EXERCISE INSTRUCTOR Gender Identity Not on file Sexual Orientation Not on file documented as of this encounter Last Filed Vital Signs Vital Sign Reading Time Taken Comments Blood Pressure 98/62 01/18/2025 12:00 AM CDT Pulse 79 01/18/2025 12:00 AM CDT Temperature 37.3 C (99.1 F) 01/18/2025 12:00 AM CDT Respiratory Rate 18 01/18/2025 12:00 AM CDT Oxygen Saturation 98% 01/18/2025 12:00 AM CDT Inhaled Oxygen Concentration - - Weight 49.9 kg (110 lb) 01/17/2025 9:37 PM CDT Height 154.9 cm (5' 1) 01/17/2025 9:37 PM CDT Body Mass Index 20.78 01/17/2025 9:37 PM CDT documented in this encounter Discharge Instructions * Discharge Instructions* Marguerite Burgess MD - 01/18/2025 1:00 AM CDT TODAY'S VISIT: - You should discuss [...] up with: - Your Primary Care Provider - If you do not have a primary care provider, you can be seen in follow-up and establish care with one of our providers by calling of the the clinics below: --- [facility] (phone: [phone]) --- Primary Care / [facility] (phone: [phone]) - Have your provider review the results [...] dose is inadequate. FLUoxetine (PROZAC) 40 MG capsuleIndication s:Severe episode of recurrent major depressive disorder, without psychotic features (H) Take 1 capsule (40 mg) by mouth daily. 30 capsule 2 10/13/2024 folic acid (FOLVITE) 1 MG tabletIndications :Hb-SS [...] 05/01/2024 naloxone (NARCAN) 4 MG/0.1ML nasal spray [place] 1 spray (4 mg) into one nostril alternating nostrils as needed for opioid reversal (for opiate overdose if not breathing and unconscious. have your family member watch video on how to use/read information sheet). every 2-3 minutes until assistance arrives 2 each 06/06/2024 ondansetron (ZOFRAN ODT) 4 MG ODT tabIndications:Ga llstones Take 1 tablet (4 mg) by mouth every 6 hours as needed for nausea or vomiting. 20 tablet 09/10/2024 polyethylene glycol (MIRALAX) 17 GM/Dose powderIndications :Sickle cell pain crisis (H) Take 17 g by mouth 2 times daily as needed for constipation. 510 g 3 09/10/2024 senna-docusate (SENOKOT-S/MERRILL LACE) 8.6-50 MG tabletIndications :Sickle cell pain crisis (H) Take 2 tablets by mouth 2 times daily as needed for constipation. 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 1 Week supply. No early refills 24 tablet 01/16/2025 5 documented as of this encounter ED Notes * Cyndie Fleming RN - 01/18/2025 1:31 AM CDT Pt presents with SCD related pain in the back, BLE, and neck per Pt. Dilaudid x3. LR bolus infusion. VSS on RA. A&Ox4. * Marguerite Burgess MD - 01/17/2025 9:45 PM CDT Images from the original note were not included. [facility] ([facility]) 01/17/25 ED PROVIDER NOTE History Chief Complaint Patient [...] her of prior sickle cell pain crises. CURRENT PRESENTATION: Patient reports that she is having diffuse pain in her back, bilateral legs, and neck secondary to her sickle cell flare up. Patient says the trigger for this is that patient is moving apartments andis in pain when having to exert force. She is requesting regular ED care plan meds. Pain is similarto previous in location, type and severity. No stiffness, rigidity. No HAs. Patient denies fevers, c hills, numbness, tingling, weakness in extremities, hematuria, urinary or bowel hesitancy, chest pain, or shortness of breath. No other new symptoms or concerns reported at this time. Full ROS completed w/o additional findings. Patient notes that she has a Rheumatology appointment tomorrow. Past Medical History Past Medical History: Diagnosis [...] systems negative. Physical Exam BP: 96/59 Pulse: 84 Temp: 98.1 ??F (36.7 ??C) Resp: 18 Height: 154.9 cm (5' 1) Weight: 49.9 kg (110 lb) SpO2: 99 % Physical Exam CONSTITUTIONAL: Awake and alert. [...] patient's presentation was of moderate to high The patient's evaluation involved: review of 3+ [...] pain crises. Clinically, patient appears nontoxic, NAD. Otherwise on examination, no obvious emergent findings. Ddx includes, but not limited to, regular chronic pain, sickle cell vasoocclusive crisis, no findings for any inflammatory or infectious arthritis, no PLAN: - Labs - ED care plan pain meds - Dispo pending ED Course RE-EVALUATION: - The patient's symptoms were improved and patient requested discharge - Pt otherwise continues to do well here in the ED, no acute issues or apparent concerning changes in vitals or clinical appearance. DISCUSSIONS: - w/ Patient: I have reviewed the available findings, plan, need for close follow up, strict return/safety instructions with the patient. DISPOSITION/PLANNING: IMPRESSION: - Recurrent pain in setting of sickle cell DISPOSITION: - Discharge to home FOLLOW-UP: - PCP / Heme OTHER RECOMMENDATIONS: - Conservative symptom management, strict return instructions Marguerite Burgess MD 01/17/2025 [facility] EMERGENCY DEPARTMENT Marguerite Burgess MD 01/20/25 1540 * Marilin Kidd RN - 01/17/2025 9:42 PM CDT Bed: [facility] Expected date: Expected time: Means of arrival: Comments: Karey Hernández * Nathalie Traore RN - 01/17/2025 9:34 PM CDT Pt ambulatory to the ED eval of sickle cell pain. Pt is reporting pain in the back, BLE, and neck. Triage Assessment (Adult) Row Name 01/17/252132 Triage Assessment Airway WDL WDL Respiratory WDL Respiratory WDL WDL Skin Circulation/Temperature WDL Skin Circulation/Temperature WDL WDL Cardiac WDL Cardiac WDL WDL Peripheral/Neurovascular WDL Peripheral Neurovascular WDL WDL Cognitive/Neuro/Behavioral WDL Cognitive/Neuro/Behavioral WDL WDL documented in this encounter Plan of Treatment Upcoming Encounters Date Type Department Care Team (Late st Contact Info) Description 02/15/2025 10:30 AM CDT Lab [facility] [address] [phone] Olinda Vora APRN BUSINESS PLANNING MANAGER [address] [place] [phone] 02/15/2025 11:00 AM CDT Oncology Visit [facility] [address] [phone] Olinda Vora APRN BUSINESS PLANNING MANAGER [address] [place] [phone] 04/09/2025 3:00 PM EXERCISE INSTRUCTOR Lab [address] [address] Case Samuel MD [address] [place] [address] [address], [address] [place], [place] [phone] 04/09/2025 3:30 PM EXERCISE INSTRUCTOR Oncology Visit [facility] [address] [place] [address] Case Samuel MD [address] [facility] [address], [address] [place], [place] [address] documented as of this encounter Goals Goal [...] Procedure Name Priority Date/Time Associated Diagnosis Comments LACTIC ACID WHOLE BLOOD WITH 1X REPEAT IN 2 HR WHEN >2 STAT 01/17/2025 10:00 PM CDT RBC AND PLATELET MORPHOLOGY STAT 01/17/2025 10:00 PM CDT CBC WITH PLATELETS AND DIFFERENTIAL STAT 01/17/2025 10:00 PM CDT CBC WITH PLATELETS AND DIFFERENTIAL (LIMITED OCCURRENCES) STAT 01/17/2025 10:00 PM CDT COMPREHENSIVE METABOLIC PANEL (LIMITED OCCURRENCES) STAT 01/17/2025 10:00 PM CDT RETICULOCYTE COUNT STAT 01/17/2025 10 :00 PM CDT INR STAT 01/17/2025 10:00 PM CDT HCG QUALITATIVE STAT 01/17/2025 10:00 PM CDT documented in this encounter Results * (ABNORMAL) RBC and Platelet Morphology (01/17/2025 10:00 PM CDT) RBC Morphology Confirmed RBC Indices 01/17/2025 10:50 PM CDT [facility] Platelet Assessment Automated Count Confirmed. Platelet morphology is normal. Automated Count Confirmed. Platelet morphology is normal. 01/17/2025 10:50 PM CDT [facility] Polychromasia Slight(A) None Seen 01/17/2025 10:50 PM CDT [facility] Sickle Cells Slight(A) None Seen 01/17/2025 10:50 PM CDT [facility] Target Cells Slight(A) None Seen 01/17/2025 10:50 PM CDT [facility] Blood BLOOD SPECIMEN / Unknown Venipuncture / Unknown 01/17/2025 10:00 PM CDT 01/17/2025 10:09 PM CDT us Marguerite Burgess MD LAB - BLOOD ORDERABLES Final Result [facility] [address] [facility], [address] [place] [phone] * (ABNORMAL) CBC with platelets and differential (01/17/2025 10:00 PM CDT) WBC Count 16.02(H) 4.00 - 11.00 10e3/uL 01/17/2025 10:52 PM CDT [facility] RBC Count 2.74(L) 3.80 - 5.20 10e6/uL 01/17/2025 10:52 PM CDT [facility] Hemoglobin 9.2(L) 11.7 - 15.7 g/dL 01/17/2025 10:52 PM CDT [facility] Hematocrit 27.0(L) 35.0 - 47.0 % 01/17/2025 10:52 PM CDT [facility] MCV 98.5 78.0 - 100.0 fL 01/17/2025 10:52 PM CDT [facility] MCH 33.6(H) 26.5 - 33.0 pg 01/17/2025 10:52 PM CDT [facility] MCHC 34.1 31.5 - 36.5 g/dL 01/17/2025 10:52 PM CDT [facility] RDW 17.2(H) 10.0 - 15.0 % 01/17/2025 10:52 PM CDT [facility] Platelet Count 736(H) 150 - 450 10e3/uL 01/17/2025 10:52 PM CDT [facility] % Neutrophils 51.5 % 01/17/2025 10:52 PM CDT [facility] % Lymphocytes 33.1 % 01/17/2025 10:52 PM CDT [facility] % Monocytes 12.0 % 01/17/2025 10:52 PM CDT [facility] % Eosinophils 1.9 % 01/17/2025 10:52 PM CDT [facility] % Basophils 0.9 % 01/17/2025 10:52 PM CDT [facility] % Immature Granulocytes 0.6 % 01/17/2025 10:52 PM CDT [facility] NRBCs per 100 WBC 0.7 <1.0 /100 01/17/2025 10:52 PM CDT [facility] Absolute Neutrophils 8.24 1.60 - 8.30 10e3/uL 01/17/2025 10:52 PM CDT [facility] Absolute Lymphocytes 5.31(H) 0.80 - 5.30 10e3/uL 01/17/2025 10:52 PM CDT [facility] Absolute Monocytes 1.93(H) 0.00 - 1.30 10e3/uL 01/17/2025 10:52 PM CDT [facility] Absolute Eosinophils 0.30 0.00 - 0.70 10e3/uL 01/17/2025 10:52 PM CDT [facility] Absolute Basophils 0.15 0.00 - 0.20 10e3/uL 01/17/2025 10:52 PM CDT [facility] Absolute Immature Granulocytes 0.09 <=0.40 10e3/uL 01/17/2025 10:52 PM CDT [facility] Absolute NRBCs 0.11 10e3/uL 01/17/2025 10:52 PM CDT [facility] Blood BLOOD SPECIMEN / Unknown Venipuncture / Unknown 01/17/2025 10:00 PM CDT 01/17/2025 10:09 PM CDT Marguerite Burgess MD LAB - BLOOD ORDERABLES Final Result [facility] [address] [facility], [address] * (ABNORMAL) Lactic acid whole blood with 1x repeat in 2 hr when >2 (01/17/2025 10:00 PM CDT) Pathologist [facility] [place] Lactic Acid, Initial 0.6(L) 0.7 - 2.0 mmol/L 01/17/2025 10:10 PM CDT [facility] Blood BLOOD SPECIMEN / Unknown Venipuncture / Unknown 01/17/2025 10:00 PM CDT 01/17/2025 10:08 PM CDT Marguerite Burgess MD LAB - BLOOD ORDERABLES Final Result Performing Organization Address [facility] Phone Number LABORATORY [facility] [address] [place] [address], [address] * HCG qualitative Blood (01/17/2025 10:00 PM CDT) Pathologist [facility] [place] hCG Serum Qualitative Negative Negative JARET 01/17/2025 10:22 PM CDT LABORATORY Comment:This test is for scr eening purposes. Results should be interpreted along with the clinical picture. Confirmation testing is available if warranted by ordering [id number], HCG Quantitative . Blood BLOOD SPECIMEN / Unknown Venipuncture / Unknown 01/17/2025 10:00 PM CDT 01/17/2025 10:08 PM CDT Marguerite Burgess MD LAB - BLOOD ORDERABLES Final Result Performing Organization Address City/[facility]/ZIP Co de Phone Number LABORATORY [facility] [address] [facility], [address] * (ABNORMAL) Reticulocyte count (01/17/2025 10:00 PM CDT) % Reticulocyte 10.32(H) 0.50 - 2.00 % 01/17/2025 10:16 PM CDT [facility] Absolute Reticulocyte 0.2828(H) 0.0250 - 0.0950 10e6/uL 01/17/2025 10:16 PM CDT [facility] Blood BLOOD SPECIMEN / Unknown Venipuncture / Unknown 01/17/2025 10:00 PM CDT 01/17/2025 10:09 PM CDT us Marguerite Burgess MD LAB - BLOOD ORDERABLES Final Result [facility] [address] [facility], [address] * (ABNORMAL) Comprehensive Metabolic Panel (Limited Occurrences) (01/17/2025 10:00 PM CDT) Pathologist [facility] [place] Sodium 134(L) 135 - 145 mmol/L 01/17/2025 10:40 PM CDT [facility] Potassium 4.5 3.4 - 5.3 mmol/L 01/17/2025 10:40 PM CDT [facility] Carbon Dioxide (CO2) 22 22 - 29 mmol/L 01/17/2025 10:40 PM CDT [facility] Anion Gap 11 7 - 15 mmol/L 01/17/2025 10:40 PM CDT [facility] Urea Nitrogen 7.7 6.0 - 20.0 mg/dL 01/17/2025 10:40 PM CDT [facility] Creatinine 0.75 0.51 - 0.95 mg/dL 01/17/2025 10:40 PM CDT [facility] GFR Estimate >90 >60 mL/min/1.7 3m2 01/17/2025 10:40 PM CDT [facility] Comment:eGFR calculated usin 2020 CKD-EPI equation. Calcium 9.6 8.8 - 10.4 mg/dL 01/17/2025 10:40 PM CDT [facility] Chloride 101 98 - 107 mmol/L 01/17/2025 10:40 PM CDT [facility] Glucose 92 70 - 99 mg/dL 01/17/2025 10:40 PM CDT [facility] Alkaline Phosphatase 90 40 - 150 U/L 01/17/2025 10:40 PM CDT [facility] AST 34 0 - 45 U/L 01/17/2025 10:40 PM CDT [facility] ALT 30 0 - 50 U/L 01/17/2025 10:40 PM CDT [facility] Protein Total 8.5(H) 6.4 - 8.3 g/dL 01/17/2025 10:40 PM CDT [facility] Albumin 4.7 3.5 - 5.2 g/dL 01/17/2025 10:40 PM CDT [facility] Bilirubin Total 1.6(H) <=1.2 mg/dL 01/17/2025 10:40 PM CDT [facility] Blood BLOOD SPECIMEN / Unknown Venipuncture / Unknown 01/17/2025 10:00 PM CDT 01/17/2025 10:08 PM CDT us Marguerite Burgess MD LAB - BLOOD ORDERABLES Final Result [facility] [address] [place] [address], [address] [place] [phone] * (ABNORMAL) INR (01/17/2025 10:00 PM CDT) INR 1.35(H) 0.85 - 1.15 01/17/2025 10:45 PM CDT [facility] PT 16.6(H) 11.8 - 14.8 Seconds 01/17/2025 10:45 PM CDT [facility] Blood BLOOD SPECIMEN / Unknown Venipuncture / Unknown 01/17/2025 10:00 PM CDT 01/17/2025 10:09 PM CDT us Marguerite Burgess MD LAB - BLOOD ORDERABLES Final Result [facility] [address] [facility], [address] [place] [address], [facility] documented in this encounter Visit Diagnoses Diagnosis 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 documented in this encounter Administered Medications Inactive Administered Medications - up to 3 most recent administrations Medication Order MAR Action Action Date Dose Rate Site hydromorphone (DILAUDID) injection 2 mg 2 mg, Intravenous, EVERY 1 HOUR PRN, severe pain, Starting on Wed01/17/25 at 2153, For 3 doses $Given 01/18/2025 12:40 AM CDT 2 mg $Given 01/17/2025 11:40 PM CDT 2 mg $Given 01/17/2025 10:27 PM CDT 2 mg lactated ringers BOLUS 1,000 mL Intravenous, 1,000 mL, ONCE, at 500 mL/hr, Administer over 2 Hours, On Wed01/17/25 at 215, For 1 dose $New Bag 01/17/2025 10:26 PM CDT 1,000 mLs 500 mL/hr lidocaine (LMX4) cream Topical, EVERY 1 HOUR PRN, pain, with VAD insertion, Starting on Wed01/17/25 at 2139, Apply at least 30 minutes prior to [...] mild pain with VAD insertion, Starting on Wed01/17/25 at 2139, MAX dose 1 mL subcutaneous OR intradermal [...] EVERY 8 HOURS SCHEDULED, First dose on Wed01/17/25 at 2200, to lock peripheral IV dormant line sodium chloride (PF) 0.9% PF flush 3 mL 3 mL, Intracatheter, EVERY 1 MIN PRN, line flush, other, to ensure patency or to lock dormant line, Starting on Wed01/17/25 at 2139 documented in this encounter Active and Recently Administered Medications Times are shown in CDT. Scheduled Medication Order 01/16/2025 01/17/2025 01/18/2025 lactated ringers BOLUS 1,000 mL (COMPLETED) Intravenous, 1,000 mL, ONCE, at 500 mL/hr, Administer over 2 Hours, On Wed01/17/25 at 2155, For 1 dose 2226 ($New Bag - Provider: Cyndie Fleming RN)2235 (Stopped - Provider: Cyndie Fleming RN) sodium chloride (PF) 0.9% PF flush 3 mL 3 mL, Intracatheter, EVERY 8 HOURS SCHEDULED, First dose on Wed01/17/25 at 2200, to lock peripheral IV dormant line 2359 (Not Given - Provider: Cyndie Fleming RN - Reason: IV Infusing) PRN Medication Order 01/16/2025 01/17/2025 01/18/2025 hydromorphone (DILAUDID) injection 2 mg (COMPLETED) 2 mg, Intravenous, EVERY 1 HOUR PRN, severe pain, Starting on Wed01/17/25 at 2153, For 3 doses 2227 ($Given - Provider: Cyndie Fleming, SOFIA)2340 ($Given - Provider: Marilin Kidd RN) 0040 ($Given - Provider: Cyndie Fleming, SOFIA) lidocaine (LMX4) cream Topical, EVERY 1 HOUR PRN, pain, with VAD insertion, Starting on Wed01/17/25 at 2139, Apply at least 30 minutes prior to [...] mild pain with VAD insertion, Starting on Wed01/17/25 at 2139, MAX dose 1 mL subcutaneous OR intradermal [...] or to lock dormant line, Starting on Wed01/17/25 at 2139 documented in this encounter Care Teams Renovation Plant Supervisor Relationship Specialty Start Date End Date Veronica Joseph MD [address] [place] [address] PCP - General Family Medicine 06/18/24 Mor Ramsey Medical Student 04/03/24 Case Samuel MD [address] [facility] [address], [address] [place], [place] [address] Assigned Pediatric Specialist Provider 05/18/24 Juhi Benson, RN Specialty Cuff Folder Hematology & Oncology 05/29/24 Olinda Vora APRN BUSINESS PLANNING MANAGER [address] [place] [address] Assigned Cancer Care Provider 08/16/24 Stiven Stanley LP [address] [place] [address] Psychologist PSYCHOLOGIST CLINICAL 10/25/24 Star Galarza MD [facility] [address] [place] [address] Home Infusion Following Provider Infectious Diseases 11/07/24 documented as of this encounter
--- OUTSIDE RECORDS SUMMARY | 2025-01-18 09:00 | XMS_ITS | Encounter Summary ---
Author Organization [facility] Address [address] [place] [address]. 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 If you don't hear from a parts representative within 2 business days, please call . Only select yes if the patient has already been scheduled and requires a referral for insurance. If yes is selected, the referral will NOT route to scheduling for outreach. No Additional Information: Hx sickle cell disease with chronic pain, high ED utilization, interested in suboxone Comments Please be aware that coverage of these services is subject to the terms and limitations of your health insurance plan. Call member services at your health plan with any benefit or coverage questions. [facility] will contact you via phone, text, email or MyChart to coordinate your care as prescribed by your provider. If you don't hear from a parts representative within 2 business days, please call . * Mental Health Outpatient (Priority: 1-2 Weeks) - Pending Review Specialty Diagnoses / Procedures Referred By Shahid pendleton Referred To Contact Behavioral Health Diagnoses Generalized anxiety disorder Tatiana Cohen CNP [address] [facility] [address] [place] [address] Phone: tel: fax: Referral ID Status Reason Start Date Expiration Date V isits Requested Visits Authorized [id number] Pending Review 01/18/2025 01/18/2026 1 1 Question Answer Services: Psychotherapy/Counseling (non-medication) Reason for Referral: Individual Psychotherapy/Counseling My clinical question is: Chronic anxiety/grief, hx of sickle cell disease with chronic opioid use and frequent ED ultilization driven by mental health symptoms Patient Scheduling Instructions: [facility] will contact you via phone, text, email or MyChart to coordinate your care as prescribed by your provider. If you don't hear from a parts representative within 2 business days, please call [...] plan with any benefit or coverage questions. [facility] will contact you via phone, text, email or MyChart to coordinate your care as prescribed by your provider. If you don't hear from a parts representative within 2 business days, please call . Reason for Visit * Reason Comments Blood Draw Labs drawn with carlos burns rn. VS taken. Oncology Clinic Visit Sickle cell pain c risis Encounter Details Date Type Department Care Team (Late st Contact Info) Description 01/18/2025 9:00 AM CDT Oncology Visit 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 SCIENTIST Gender Identity Not on file Sexual Orientation Not on file documented as of this encounter Last Filed Vital Signs Vital Sign Reading Time Taken Comments Blood Pressure 96/58 01/18/2025 9:14 AM CDT Pulse 97 01/18/2025 9:14 AM CDT Temperature 36.8 C (98.3 F) 01/18/2025 9:14 AM CDT Respiratory Rate 16 01/18/2025 9:14 AM CDT Oxygen Saturation 97% 01/18/2025 9:14 AM CDT Inhaled Oxygen Concentration - - Weight 49.1 kg (108 lb 4.8 oz) 01/18/2025 9:14 A M CDT Height - - Body Mass Index 20.46 01/17/2025 9:37 PM CDT documented in this encounter Progress Notes * Tatiana Cohen CNP - 01/18/2025 9:00 AM CDT Classical Hematology Outpatient Visit (Sickle Cell Anemia) Date of visit: 01/18/2025 Gianna Hernández is a 29 year old female who is here for outpatient follow up for sickle cell anemia. Interval History: Gianna was accompanied by her 2 year old daughter, Chanda. She was last seen in the outpatient hematology clinic 07/17/24. She is utilizing the ED almost daily endorsing worsening pain over the last two months. She reports her sickle cell pain is localized to her back and legs. She reports her hydromorphone lasts 3 days once filled and the dose of 2mg is not sufficient for her pain. She is requesting an increase in hydromorphone dose to adequately manage her pain. She reports having difficult veins due to repeated venipuncture attempts in the ED resulting in placement of peripheral IVs in herfeet or legs. She is requesting port placement to alleviate pain from PIVs. Of note, she was admitted 11/02- 11/07/24 for MSSA bacteremia with an infected port which was removed and she completed a 4 week course of cefazolin via PICC line. On a subsequent hospital admission from 12/29-12/31/2024 for sickle cell pain, she had a MANUEL demonstrating a right atrial mass with suspicion for endocarditis and PICC removal with no additional workup due to patient's self-directed discharge secondary to childcare conflicts. She continues fluoxetine 40mg daily for anxiety and depression. She denies that this medication relieves her symptoms. She has increased symptoms after unexpectedly losing her father to suicide last month. She describes her father was diagnosed with PTSD as a result of his service. She currently lives with her boyfriend in his parent's home in [place]. She states the family dynamics of the home are stressful as she witnesses frequent arguments and yelling in the home. She states her boyfriend is great support for her and somebody she can confide in. She is open to seeking out therapy and/or mental health support. She has history of DVT and PE and reports completing her Apixaban prescription in November. She was unsure if she this medication should be continued. She denies fevers, dyspnea on exertion, skin ulcerations or lesions, peripheral edema or changes inmenstrual bleeding. Sickle Cell Disease Comprehensive Checklist Stroke/silent cerebral infarct Hx (Y/N): Yes Bone Health/Avascular Necrosis Screening/Symptoms (each visit): AVN (left) Leg Ulcer evaluation (every visit): no Hypertension (every visit): none today Last ophthalmologic exam (annual): completed in 2024 Last urinalysis for microalbuminuria/CKD (annually): 05/29/24 (none noted) Last pulmonary evaluation (asthma, etc): None Last PCP Visit: Dr. Joseph in [place], reports she had an appointment in 2024 Last Dental Visit: due HbF measurement (annual): 11% (04/2024) Vaccines: PCV13:never received?--due Pneumovax (q5 years) (PPSV23): administered today (01/18/2025) MenACWY (q5 years) (Menactra, Menveo): 3 doses, last in 2010--due MenB one series (Katt Pantoja): none Influenza: administered today (01/18/2025) COVID19: several Note: This is an ED and inpatient STARTING POINT for pain management. It is not a static plan, nor a ceiling. Please titrate as needed and notify the primary gallery host via Assurely message if changes to the plan below are needed. Also please note that there is a mental health component to her pain, particularly in terms of adjustment to [place] which is likely to make her pain worse.. Plan last reviewed with patient: 01/18/2025 Patient background: 29 yo F, recently moved from [place] Sickle Cell Disease History Primary Fabric Sourcer/DIRECTOR CLINICAL INFORMATION SERVICES/PA: Lizzie Genotype: SS Acute Pain Crisis Treatment: [...] Docusate, Senna PRN Home Pain Medications: Dilaudid 2 mg PO q6h, Tylenol Baseline Hemoglobin: 8 g/dl Hydroxyurea use: [...] Location: [facility] OR TONSILLECTOMY & ADENOIDECTOMY Bilateral Family History: Family History Problem Relation Age of Onset Sickle Cell Trait Daughter Medications: Current Outpatient Medications Medication Sig Dispense Refill apixaban ANTICOAGULANT (ELIQUIS) 5 MG tablet Take 1 tablet (5 mg) by mouth 2 times daily. diphenhydrAMINE (BENADRYL) 25 MG tablet Take 1-2 tablets by mouth every 6 hours as needed for itching. EPINEPHrine (ANY BX GENERIC EQUIV) 0.3 MG/0.3ML injection 2-pack Inject 0.3 mg into the muscle as needed for anaphylaxis. May repeat one time in 5-15 minutes if response to initial dose is inadequate. FLUoxetine (PROZAC) 40 MG capsule Take 1 capsule (40 mg) by mouth daily. 30 capsule 2 folic acid (FOLVITE) 1 MG tablet Take 1 tablet (1 mg) by mouth daily. 30 tablet 11 HYDROmorphone (DILAUDID) 2 MG tablet Take 1 tablet (2 mg) by mouth every 6 hours as needed for severe pain or breakthrough pain. 1 Week supply. No early refills 24 tablet 0 hydroxyurea (HYDREA) 500 MG capsule Take 2 capsules (1,000 mg) by mouth 2 times daily 120 capsule 11 multivitamin, therapeutic (THERA-VIT) TABS tablet Take 1 tablet by mouth daily. 30 tablet 11 naloxone (NARCAN) 4 MG/0.1ML nasal spray Preston 1 spray (4 mg) into one nostril alternating nostrilsas needed for opioid reversal (for opiate overdose if not breathing and unconscious. have your family member watch video on how to use/read information sheet). every 2-3 minutes until assistance arrives 2 each 0 ondansetron (ZOFRAN ODT) 4 MG ODT tab Take 1 tablet (4 mg) by mouth every 6 hours as needed for nausea or vomiting. 20 tablet 0 polyethylene glycol (MIRALAX) 17 GM/Dose powder Take 17 g by mouth 2 times daily as needed for constipation. 510 g 3 senna-docusate (SENOKOT-S/PERICOLACE) 8.6-50 MG tablet Take 2 tablets by mouth 2 times daily as needed for constipation. 60 tablet 0 No current facility-administered medications for this visit. Physical Exam: BP 96/58 Pulse 97 Temp 98.3 ??F (36.8 ??C) (Oral) Resp 16 Wt 49.1 kg (108 lb 4.8 oz) LMP 01/12/2025 (Exact Date) SpO2 97% BMI 20.46 kg/m?? GENERAL APPEARANCE: healthy, alert and no distress EYES: Wearing corrective lenses, Eyes grossly normal to inspection, PERRL and conjunctivae and sclerae normal, extraocular movements intact HENT: oropharynx clear and oral mucous membranes moist, dentition is of concern with discoloration to visible teeth RESP: normal respiratory effort on RA. Lungs clear to auscultation. CARDS: RRR, no murmur SKIN: no suspicious lesions or rashes GI: Abdomen is soft and non tender. Positive bowel sounds. MSK: No edema in BLE NEURO: mentation intact and speech normal PSYCH: tearful when discussing recent stressors, conversational and pleasant Labs: Most Recent 3 CBC's: Recent Labs Lab Test 01/18/25 0901/17/25219901/14/25 1154 WBC 13.16* 16.02* 9.57 HGB 8.7* 9.2* 8.4* MCV 99.2 98.5 99.6 PLT 717* 736* 708* Most Recent 3 BMP's: Recent Labs Lab Test 01/18/25 0927 01/17/25219901/14/25 1154 01/12/25204201/10/25 0635 NA 135 134* 140 138 137 POTASSIUM 4.4 4.5 4.2 5.0 4.5 CHLORIDE 104 101 105 104 105 CO2 19* 22 24 23 23 BUN 8.7 7.7 9.5 13.1 10.2 CR 0.65 0.75 0.72 0.72 0.67 ANIONGAP 12 11 11 11 9 EVELIN 9.1 9.6 9.4 9.6 8.6* GLC 108* 92 94 97 106* PROTTOTAL -- 8.5* -- 8.6* 6.4 ALBUMIN -- 4.7 -- 4.5 3.5 Most Recent 2 LFT's: Recent Labs Lab Test 01/17/250 01/12/252042 AST 34 56* ALT 30 39 ALKPHOS 90 98 BILITOTAL 1.6* 1.6* Most Recent TSH and T4:No lab results found. Phos/Mag: Lab Results Component Value Date PHOS 4.1 09/10/2024 PHOS 3.5 09/09/2024 PHOS 4.6 (H) 08/23/2024 MAG 1.9 09/20/2024 MAG 1.7 09/19/2024 MAG 1.8 09/18/2024 Lab Results Component Value Date RETP 10.32 (H) 01/17/2025 I reviewed the above labs today. Imaging: Study Date: 01/02/2025 02:00 PM Age: 29 yrs Gender: Female Patient Location: [facility] Reason For Study: Endocarditis Interpretation Summary: Global biventricular function is normal. There is [...] vegetations noted. No pericardial effusion is present. I reviewed the above imaging today. Assessment: Gianna Hernández is a 29 year old female who is seen for follow-up for sickle cell disease, HbSS (Apr 2024). She has several comorbidities related to sickle cell disease, including chronic pain, AVN of the left hip, history of pulmonary embolism and deep vein thrombosis, history of transfusions with iron overload, history of stroke (details unclear), right eye retinopathy, acute on chronic anemia, gallstones, and a history of ACS. She has regularly been seeking care in the emergency department for pain control, often at the [facility] ED. Today, we discussed the contribution of her anxiety and psychosocial concerns to her pain frequency. She does feel that the anxiety contributes quite significantly to pain. She is working onincreased awareness of this and did trial fluoxetine 40 mg daily although did not find symptomatic benefit with this. She is open to a psychotherapy referral today. HbSS Disease with several complications listed below -Labs: Stable today, CBC with differential, reticulocyte, CMP on return -Attempts to utilize the infusion clinic appropriately and when necessary. -Dilaudid 2mg dosing capped at 24 tablets/week with a goal to taper -Further goals would be decreasing ED visit frequency although we expect this to be a slow process and want to focus on trust building throughout the hematology team in an effort to avoid setbacks -Addiction medicine referral Acute on chronic anemia plus stroke hx -Continue monthly exchange transfusions -Stroke are unclear-need head MRI for evaluation at some point. Previously ordered but not completed -Last exchange in July--will discuss resumption with Dr. 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 -Continue apixaban 5mg BID. Will need to resume as she self-discontinued after running out of her last prescription. Refill sent to pharmacy today History of left hip AVN with hairline fracture -Documentation dating back to at least 2020 describing findings -Continued ambulation as able to keep the muscles around the hip and femur strong -Orthopedic referral/follow-up PRN, will hold off for now History of gallstones and intermittent cholecystitis -Likely approaching cholecystectomy before transitioning care to ME -No recent biliary colic Mental health After discussing risks and benefits of SSRIs with Dr. Samuel she began fluoxetine 10 mg daily in early May without significant benefit. Her uncontrolled anxiety seems to be a significant contributor to her br -Fluoxetine 20 mg daily--was increased to 40mg without benefit -Reassess effectiveness in 1 month on return -Referral for psychotherapy placed Ophthalmology -Seen by ophthalmology in 2024, received new glasses prescription Healthcare maintenance -Will need to get full series of PPSV23, Men B, and Men ACWY booster: administered influenza and PPSV20 today. -Already has PCP in [place] Follow up plan: TIFFANY visit and labs in 1 month Jennifer WALKERS3 Physician Delicatessen Department Manager Student This note requires a co-sign/attestation. Patient seen and examined in conjunction with Tatiana Cohen CNP The patient was seen in conjunction with Jennifer MCMANUS who served as a scribe for today's visit. I have reviewed and edited the above note, and agree with the above findings and plan. Tatiana Cohen CNP --- 70 minutes spent on the date of the encounter doing chart review, review of test results, interpretation of tests, patient visit, documentation, and discussion with Dr. Samuel. The longitudinal plan of care for the diagnosis(es)/condition(s) as documented were addressed during this visit. Due to the added complexity in care, I will continue to support Gianna in the subsequent management and with ongoing continuity of care. documented in this encounter Nursing Notes * Chela Chaney RN - 01/18/2025 9:00 AM CDT Chief Complaint Patient presents with Blood Draw Labs drawn with vp software by rn. VS taken. Labs drawn with vp software by rn. Pt tolerated well. VS taken. Pt checked in for next appt. Sandy Chaney RN * Valery Barrett EMT - 01/18/2025 9:00 AM CDT Oncology Rooming Note January 18, 2025 9:33 AM Gianna Hernández is a 29 year old female who presents for: Chief Complaint Patient presents with Blood Draw Labs drawn with vp software by rn. VS taken. Oncology Clinic Visit Sickle cell pain crisis Initial Vitals: BP 96/58 Pulse 97 Temp 98.3 ??F (36.8 ??C) (Oral) Resp 16 Wt 49.1 kg (108 lb 4.8 oz) LMP 01/12/2025 (Exact Date) SpO2 97% BMI 20.46 kg/m?? Estimated body mass index is 20.46 kg/m?? as calculated from the following: Height as of 01/17/25: 1.549 m (5' 1). Weight as of this encounter: 49.1 kg (108 lb 4.8 oz). Body surface area is 1.45 meters squared. Severe Pain (7) Comment: Data Unavailable Patient's last menstrual period was 01/12/2025 (exact date). Allergies reviewed: Yes Medications reviewed: Yes Medications: Medication refills not needed today. Pharmacy name entered into [employer]: [facility] [address] [place], [place] - [phone] - [address] PHQ9: Did this patient require a PHQ9?: No Clinical concerns: none. DEVIN Mills * Laura Dempsey MA - 01/18/2025 9:00 AM CDT Influenza vaccine given to patient in Right Deltoid . Patient tolerated injection without any incidents. Has the patient received the information for the injectable influenza vaccine? YES Laura Dempsey Service Order Dispatcher Chief January 18, 2025 10:43 AM * Laura Dempsey MA - 01/18/2025 9:00 AM CDT Prevnar 20 Vaccine administered without complication per orders from Tatiana Cohen CNP. Patient tolerated well and was discharged. See MAR for details. Laura dempsey Service Order Dispatcher Chief on 01/18/2025 at 10:43 AM documented in this encounter Plan of Treatment Upcoming Encounters Date Type Department Care Team (Late st Contact Info) Description 02/15/2025 10:30 AM CDT [facility] [address] [place] [address] Olinda Vora APRN GLUING CREW LEADER [address] [place] [id number] 02/15/2025 11:00 AM CDT Oncology Visit [facility] [address] [phone] VielkaOlinda APRN GLUING CREW LEADER [address] [place] [id number] 04/09/2025 3:00 PM SAFETY SCIENTIST Lab [facility] [address] [phone] Case Samuel MD [address] [place] [address] [address], [address] [place], [place] [phone] 04/09/2025 3:30 PM SAFETY SCIENTIST Oncology Visit 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) Expected: 01/18/2025 (Approximate), Expires: 01/18/2026 documented as of this encounter Goals Goal [...] Diagnosis Comments RBC AND PLATELET MORPHOLOGY Routine 01/18/2025 9:27 AM CDT Sickle cell pain crisis (H) CBC WITH PLATELETS AND DIFFERENTIAL Routine 01/18/2025 9:27 AM CDT Sickle cell pain crisis (H) CBC WITH PLATELETS & DIFFERENTIAL Routine 01/18/2025 9:27 AM CDT Sickle cell pain crisis (H) BASIC METABOLIC PANEL Routine 01/18/2025 9:27 AM CDT Sickle cell pain crisis (H) documented in this encounter Results * (ABNORMAL) RBC and Platelet Morphology (01/18/2025 9:27 AM CDT) RBC Morphology Confirmed RBC Indices 01/18/2025 10:39 AM CDT [facility] Platelet Assessment Automated Count Confirmed. Platelet morphology is normal. Automated Count Confirmed. Platelet morphology is normal. 01/18/2025 10:39 AM CDT [facility] Polychromasia Slight(A) None Seen 01/18/2025 10:39 AM CDT [facility] Sickle Cells Slight(A) None Seen 01/18/2025 10:39 AM CDT [facility] Target Cells Slight(A) None Seen 01/18/2025 10:39 AM CDT [facility] Blood STRUCTURE OF RIGHT UPPER LIMB / Unknown Venipuncture / Unknown 01/18/2025 9:27 AM CDT 01/18/2025 9:35 AM CDT us Case Samuel MD LAB - BLOOD ORDERABLES Fi nal Result [facility] Clinics and Surgery [facility] [address] [facility] 1st [place] [address] * (ABNORMAL) CBC with platelets and differential (01/18/2025 9:27 AM CDT) WBC Count 13.16(H) 4.00 - 11.00 10e3/uL 01/18/2025 10:27 AM CDT [facility] RBC Count 2.63(L) 3.80 - 5.20 10e6/uL 01/18/2025 10:27 AM CDT [facility] Hemoglobin 8.7(L) 11.7 - 15.7 g/dL 01/18/2025 10:27 AM CDT [facility] Hematocrit 26.1(L) 35.0 - 47.0 % 01/18/2025 10:27 AM CDT [facility] MCV 99.2 78.0 - 100.0 fL 01/18/2025 10:27 AM CDT [facility] MCH 33.1(H) 26.5 - 33.0 pg 01/18/2025 10:27 AM CDT [facility] MCHC 33.3 31.5 - 36.5 g/dL 01/18/2025 10:27 AM CDT [facility] RDW 17.2(H) 10.0 - 15.0 % 01/18/2025 10:27 AM CDT [facility] Platelet Count 717(H) 150 - 450 10e3/uL 01/18/2025 10:27 AM CDT [facility] % Neutrophils 59.8 % 01/18/2025 10:27 AM CDT [facility] % Lymphocytes 23.9 % 01/18/2025 10:27 AM CDT [facility] % Monocytes 12.9 % 01/18/2025 10:27 AM CDT [facility] % Eosinophils 1.7 % 01/18/2025 10:27 AM CDT [facility] % Basophils 1.1 % 01/18/2025 10:27 AM CDT [facility] % Immature Granulocytes 0.6 % 01/18/2025 10:27 AM CDT [facility] NRBCs per 100 WBC 0.8 <1.0 /100 01/18/2025 10:27 AM CDT [facility] Absolute Neutrophils 7.87 1.60 - 8.30 10e3/ 01/18/2025 10:27 AM CDT [facility] Absolute Lymphocytes 3.15 0.80 - 5.30 10e3/ 01/18/2025 10:27 AM CDT [facility] Absolute Monocytes 1.70(H) 0.00 - 1.30 e3/ 01/18/2025 10:27 AM CDT [facility] Absolute Eosinophils 0.22 0.00 - 0.70 e3/ 01/18/2025 10:27 AM CDT [facility] Absolute Basophils 0.14 0.00 - 0.20 e3/ 01/18/2025 10:27 AM CDT [facility] Absolute Immature Granulocytes 0.08 <=0.40 e3/ 01/18/2025 10:27 AM CDT [facility] [facility] Absolute NRBCs 0.10 e3/ 01/18/2025 10:27 AM CDT [facility] Blood STRUCTURE OF RIGHT UPPER LIMB / Unknown Venipuncture / Unknown 01/18/2025 9:27 AM CDT 01/18/2025 9:35 AM CDT Case Samuel MD LAB - BLOOD ORDERABLES Fi nal Result [facility] [address] [facility] 1st [place] [address] * (ABNORMAL) Basic metabolic panel (01/18/2025 9:27 AM CDT) Sodium 135 135 - 145 mmol/L 01/18/2025 9:59 AM CDT [facility] Potassium 4.4 3.4 - 5.3 mmol/L 01/18/2025 9:59 AM CDT [facility] Chloride 104 98 - 107 mmol/L 01/18/2025 9:59 AM CDT [facility] Carbon Dioxide (CO2) 19(L) 22 - 29 mmol/L 01/18/2025 9:59 AM CDT [facility] Anion Gap 12 7 - 15 mmol/L 01/18/2025 9:59 AM CDT [facility] Urea Nitrogen 8.7 6.0 - 20.0 mg/dL 01/18/2025 9:59 AM CDT [facility] Creatinine 0.65 0.51 - 0.95 mg/dL 01/18/2025 9:59 AM CDT [facility] GFR Estimate >90 >60 mL/min/1.7 3m2 01/18/2025 9:59 AM CDT [facility] Comment:eGFR calculated us2020 CKD-EPI equation. Calcium 9.1 8.8 - 10.4 mg/dL 01/18/2025 9:59 AM CDT [facility] Glucose 108(H) 70 - 99 mg/dL 01/18/2025 9:59 AM CDT [facility] Blood STRUCTURE OF RIGHT UPPER LIMB / Unknown Venipuncture / Unknown 01/18/2025 9:27 AM CDT 01/18/2025 9:35 AM CDT us Case Samuel MD LAB - BLOOD ORDERABLES Fi nal Result [facility] [place] [address] [facility] 1st [place] [address] documented in this encounter Visit Diagnoses Diagnosis 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 Give Fact Sheet to Patient. If patient is febrile, reassess in 8 hrs or every shift. Minor illnesses with or without fever does NOT contraindicate the vaccination. Inject into the anterolateral aspect of the thigh (infants) or deltoid muscle (toddlers/children); do not inject in the gluteal area, or in areas of major nerve trunks and/or blood vessels. IM administration for children 6 months to 2 years should be vaccinated in the anterolateral aspect of thigh. If not administering when scheduled , change the due time by following the instructions in the reference link below. If patient refuses vaccine, chart as Vaccine Refused. $Given 01/18/2025 10:42 AM CDT 0.5 mLs Right Deltoid documented in this encounter Care Teams Pack Room Operator Relationship Specialty Start Date End Date Veronica Joseph MD [address] [place] [address] PCP - General Family Medicine 06/18/24 Elvira Ramseyc Medical Student 04/03/24 Case Samuel MD [address] [facility] [address] [place] [address] Assigned Pediatric Specialist Provider 05/18/24 Juhi Benson, SOFIA Specialty Cottonseed Meat Presser Hematology & Oncology 05/29/24 Olinda Vora APRN [employer]UING CREW LEADER [address] [place] [address] Assigned Cancer Care Provider 08/16/24 Stiven Stanley LP [address] [place] [address] Psychologist PSYCHOLOGIST CLINICAL 10/25/24 Star Galarza MD [facility] [address] [place] [address] Home Infusion Following Provider Infectious Diseases 11/07/24 documented as of this encounter
--- OUTSIDE RECORDS SUMMARY | 2025-01-18 19:08 | XMS_ITS | Encounter Summary ---
Author Organization [place] Address [address] [place] [address]. [place] [address] Care Team Providers Care Electronic Device Repairer Name Role Phone RoxyElvirac Unavailable Unavailable Case Samuel MD Unavailable [phone] Juhi Benson RN Unavailable Unavailable Veronica Joseph MD Primary Care Provider [phone] Olinda Vora APRN FORCER MAKER Unavailable [phone] Stiven Stanley Unavailable Star Galarza MD Unavailable [phone] Reason for Visit * Reason Comments Sickle Cell Pain Crisis Encounter Details Date Type Department Care Team ([facility] st Contact Info) Description 01/18/2025 7:08 PM CDT - 01/18/2025 9:58 PM CDT Emergency [facility] Emergency Department [address] [place] [phone] Manan Brand MD [facility] [place] [address] Sickle cell pain crisis (H) (Primary Dx) [...] file Legal Sex Female 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 Gender Identity Not on file Sexual Orientation Not on file documented as of this encounter Last Filed Vital Signs Vital Sign Reading Time Taken Comments Blood Pressure 100/65 01/18/2025 9:58 PM CDT Pulse 88 01/18/2025 9:58 PM CDT Temperature 36.7 C (98.1 F) 01/18/2025 7:05 PM CDT Respiratory Rate 18 01/18/2025 9:58 PM CDT Oxygen Saturation 99% 01/18/2025 9:58 PM CDT Inhaled Oxygen Concentration - - Weight - - Height - - Body Mass Index - - documented in this encounter Discharge Instructions * Discharge Instructions* Yuridia Bacno PA-C - 01/18/2025 9:45 PM CDT You were seen in the emergency room today for evaluation of pain consistent with your prior sickle cell pain. You were feeling improved after administration of your care plan. Please follow-up with hematology in the next few days and return to the emergency room with any new or worsening symptoms. documented in this encounter Medications at Time of Discharge apixaban ANTICOAGULANT (ELIQUIS) 5 MG tabletIndications: Acute pulmonary embolism without acute cor pulmonale, unspecified pulmonary embolism type (H) Take 1 tablet (5 mg) by mouth 2 times daily. 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 1 Week supply. No early refills 24 tablet 01/16/2025 01/23/20 25 documented as of this encounter ED Notes * Lynn Estrada RN - 01/18/2025 9:56 PM CDT Pt discharging, provider ordered labs and xray but pt is refusing them at this time. Dr brand aware, and he explained risks to the pt of not getting these tests done today. * Tatiana Jimenez RN - 01/18/2025 7:07 PM CDT Ambulatory to triage for sickle cell pain crisis Triage Assessment (Adult) Row Name 01/18/25 1907 Triage Assessment Airway WDL WDL Respiratory WDL Respiratory WDL WDL Skin Circulation/Temperature WDL Skin Circulation/Temperature WDL WDL Cardiac WDL Cardiac WDL WDL Peripheral/Neurovascular WDL Peripheral Neurovascular WDL WDL Cognitive/Neuro/Behavioral WDL Cognitive/Neuro/Behavioral WDL WDL * Manan Brand MD - 01/18/2025 7:00 PM CDT Images from the original note were not included. Verbal consent was obtained if AI documentation was used in the creation of this note. [facility] ([facility]) 01/18/25 ED PROVIDER NOTE History Chief Complaint Patient presents with Sickle Cell Pain Crisis The history is provided by the patient and medical records. No sign language teacher was used. 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 She reports generalized body pain consistent with previous sickle cell pain flares. No fever, cough, congestion, runny nose, sore throat, chest pain, shortness of breath, abdominal pain, nausea, vomiting, diarrhea, urinary symptoms, or any other concerns at this time. She was seen earlier today in hematology clinic today with outpatient labs including CBC and CMP. Of note, she was admitted on 01/09/2025-01/11/2025 with sickle cell pain crisis. In the ED, she received 8 mg dilaudid, 1000 ml fluid bolus and 4 mg zofran. Has been seen in the ED for sickle cell paindaily since discharge including yesterday where she had reassuring labs, leukocytosis to 16.02, hemoglobin 9.2, bilirubin 1.6, reticulocyte count 10.32%. 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 Physical Exam BP: 94/64 Pulse: 81 Temp: 98.1 ??F (36.7 ??C) Resp: 18 SpO2: 98 % Physical Exam Vitals and nursing note reviewed. Constitutional: General: She is not in acute distress. Appearance: Normal appearance. She is not ill-appearing, toxic-appearing or diaphoretic. Comments: Awake, sitting in chair, pleasant, conversant, answering questions appropriately and in complete sentences HENT: Head: Normocephalic and atraumatic. Mouth/Throat: Mouth: Mucous membranes are moist. Eyes: General: No scleral icterus. Conjunctiva/sclera: Conjunctivae normal. Cardiovascular: Rate and Rhythm: Normal rate and regular rhythm. Heart sounds: Normal heart sounds. Pulmonary: Effort: Pulmonary effort is normal. No respiratory distress. Breath sounds: Normal breath sounds. No stridor. No wheezing, rhonchi or rales. Abdominal: General: Abdomen is flat. Palpations: Abdomen is soft. Tenderness: There is no abdominal tenderness. There is no guarding or rebound. Musculoskeletal: General: No deformity. Cervical back: Neck supple. Skin: General: Skin is warm and dry. Capillary Refill: Capillary refill takes less than 2 seconds. Neurological: General: No focal deficit present. Mental Status: She is alert and oriented to person, place, and time. Psychiatric: Mood and Affect: Mood normal. Behavior: Behavior normal. Thought Content: Thought content normal. Judgment: Judgment normal. ED Course, Procedures, & Data Procedures Medications hydromorphone (DILAUDID) injection 2 mg (2 mg Intravenous $Given 01/18/252136) lactated ringers BOLUS 1,000 mL (0 mLs Intravenous Stopped 01/18/252154) ondansetron (ZOFRAN) injection 8 mg (4 mg Intravenous $Given 01/18/251947) Critical care was not performed. Medical Decision Making The patient's presentation was of high complexity (a chronic illness severe exacerbation, progression, or side effect of treatment). The patient's evaluation involved: review of external note(s) from 3+ sources (clinical notes including recent ED visits and hospitalization, hematology notes from earlier today) review of 3+ test result(s) ordered prior to this encounter (see separate area of note for details) The patient's management necessitated high risk (a parenteral controlled substance). Assessment & Plan Gianna Hernández is a 29 year old female with past medical history significant for sickle cell disease with a care plan in place, history of acute chest syndrome, stroke, cardiac thrombus, upper extremity DVT (11/2023), cholecystectomy (09/08/2024) who presents to the emergency department for sickle cell pain crisis. Pain today is consistent with prior episodes of sickle cell pain flares, no concern today for acute chest or other more serious pathology. On evaluation, vitals are in acceptable ranges, normotensive, HR 81, afebrile, normoxic. Patient is awake, alert, answering questions appropriately, conversant, very pleasant. Breathing comfortably on room air, no respiratory distress, no adventitious lung sounds, normal heart rate, regular rhythm. Abdomen is soft, nontender, no rebound or guarding. Exam is otherwise benign. No chest pain, fever, or respiratory symptoms to suggest acute chest syndrome although did offer chest X-ray which patient declined. Reviewed lab work complete earlier today outpatient including CBC and CMP, reticulocyte count not drawn, reviewed labs from yesterday as well. Discussed drawing reticulocyte count as well which patient also declined today. Reviewed with patient that we cannot rule out acute chest or aplastic crisis and used shared decision making t o defer further studies at this time. She was treated per her pain plan with dilaudid 2 mg IV x3, 1liter LR over 2 hours, and zofran 8 mg IV. After completion of her care plan, she was feeling improved and felt comfortable discharging to home. Advised to follow-up with her usual providers for ongoing evaluation and management and to return to the ED with any new or worsening symptoms. I have reviewed the nursing notes. I have reviewed the findings, diagnosis, plan and need for follow up with the patient. Discharge Medication List as of 01/18/2025 9:55 PM Final diagnoses: Sickle cell pain crisis (H) Yuridia Bacon PA-C [facility] 01/18/2025 Yuridia Bacon PA-C 01/19/25 1514 Manan Brand MD 01/20/25 0039 -- ED Attending Physician Attestation I Manan Brand MD, cared for this patient with the Advanced Practice Provider (TIFFANY). I personally provided a substantive portion of the care for this patient, including approving the care plan for the number and complexity of problems addressed and taking responsibility related to the risk of complications and/or morbidity or mortality of patient management. Please see the TIFFANY's documentation for full details. Manan Brand MD Emergency Medicine Manan Brand MD 01/20/25 0040 documented in this encounter Plan of Treatment Upcoming Encounters Date Type Department Care Team (Late st Contact Info) Description 02/15/2025 10:30 AM CDT Lab [facility] [address] [phone] Olinda Vora APRN FORCER MAKER [address] [place] [address] 02/15/2025 11:00 AM CDT Oncology Visit [facility] [address] [phone] Olinda Vora APRN FORCER MAKER [address] [place] [address] 04/09/2025 3:00 PM DENTAL 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 Lab [facility] [address] [phone] Case Samuel MD [address] [place] [address] [address], [address] [place] [address] 04/09/2025 3:30 PM DENTAL 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 Oncology Visit [facility] [address] [phone] Case Samuel MD [address] [place], [place] [address], [address] [place], [place] [address] documented as of this encounter Goals Goal [...] PRN, moderate pain, severe pain, Starting on Citlali 01/18/25 at 1904, For 3 doses $Given 01/18/2025 9:37 PM CDT 2 mg $Given 01/18/2025 8:42 PM CDT 2 mg $Given 01/18/2025 7:48 PM CDT 2 mg lactated ringers BOLUS 1,000 mL Intravenous, 1,000 mL, ONCE, at 500 mL/hr, Administer over 2 Hours, On Citlali 01/18/25 at 1905, For 1 dose $New Bag 01/18/2025 7:49 PM CDT 1,000 mLs 500 mL/hr ondansetron (ZOFRAN) injection 8 mg 8 mg, Intravenous, ONCE, Administer over 2-5 Minutes, On Citlali 01/18/25 at 1905, For 1 dose $Given 01/18/2025 7:48 PM CDT 4 mg documented in this encounter Active and Recently Administered Medications Times are shown in CDT. Scheduled Medication Order 01/16/2025 01/17/2025 01/18/2025 lactated ringers BOLUS 1,000 mL (COMPLETED) Intravenous, 1,000 mL, ONCE, at 500 mL/hr, Administer over 2 Hours, On Citlali 01/18/25 at 1905, For 1 dose 1948 ($New Bag - Pro vider: Tato Franks RN)2154 (Stopped - Provider: Fannie Marcso RN) ondansetron (ZOFRAN) injection 8 mg (COMPLETED) 8 mg, Intravenous, ONCE, Administer over 2-5 Minutes, On Citlali 01/18/25 at 1905, For 1 dose 1947 ($Given - Provi nas: Tato Franks RN) PRN Medication Order 01/16/2025 01/17/2025 01/18/2025 hydromorphone (DILAUDID) injection 2 mg (COMPLETED) 2 mg, Intravenous, EVERY 1 HOUR PRN, moderate pain, severe pain, Starting on Citlali 01/18/25 at 1904, For 3 doses 1948 ($Given - Provi nas: Tato Franks, RN)2041 ($Given - Provider: Tato Franks, RN)213 ($Given - Provider: Juliana Das, SOFIA) documented in this encounter Care Teams Electronic Device Repairer Relationship Specialty Start Date End Date Veronica Joseph MD [address] [place] [address] PCP - General Family Medicine 06/18/24 Elvira Ramseyc Medical Student 04/03/24 Case Samuel MD [address] [facility] [address], [address] [place] [address] Assigned Pediatric Specialist Provider 05/18/24 Juhi Benson, SOFIA Specialty Associate Professor Of Education Hematology & Oncology 05/29/24 Olinda Vora APRN FORCER MAKER [address] [place] [address] Assigned Cancer Care Provider 08/16/24 Stiven Stanley LP [address] [place] [address] Psychologist PSYCHOLOGIST CLINICAL 10/25/24 Star Galarza MD [facility] [place], [place] [address] Home Infusion Following Provider Infectious Diseases 11/07/24 documented as of this encounter
--- OUTSIDE RECORDS SUMMARY | 2025-01-19 17:43 | XMS_ITS | Encounter Summary ---
Author Organization [place] Address [address] [place] [address]. [place] [address] Care Team Providers Care Asbestos Abatement Worker Name Role Phone RoxyElvirac Unavailable Unavailable Case Samuel MD Unavailable [phone] Juhi Benson RN Unavailable Unavailable Veronica Joseph MD Primary Care Provider [phone] Olinda Vora APRN DIRECTOR PUBLIC POLICY Unavailable [phone] Stiven Stanley Unavailable Star Galarza MD Unavailable [phone] Reason for Visit * Reason Comments Sickle Cell Pain Crisis Encounter Details Date Type Department Care Team (Late st Contact Info) Description 01/19/2025 5:43 PM CDT - 01/19/2025 8:36 PM CDT Emergency [facility] Emergency Department [address] [place] [phone] Marguerite Burgess MD [address] [place] [phone] Sickle cell pain crisis (H) (Primary Dx) [...] an overnight nursing home, or couch-surfing.) Yes 11/09/2024 Are you worried [...] on file Legal 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 Gender Identity Not on file Sexual Orientation Not on file documented as of this encounter Last Filed Vital Signs Vital Sign Reading Time Taken Comments Blood Pressure 106/74 01/19/2025 8:35 PM CDT Pulse 78 01/19/2025 8:35 PM CDT Temperature 36.9 C (98.4 F) 01/19/2025 8:35 PM CDT Respiratory Rate 19 01/19/2025 8:35 PM CDT Oxygen Saturation 99% 01/19/2025 8:35 PM CDT Inhaled Oxygen Concentration - - Weight 49.9 kg (110 lb) 01/19/2025 5:40 PM CDT Height 152.4 cm (5') 01/19/2025 5:40 PM CDT Body Mass Index 21.48 01/19/2025 5:40 PM CDT documented in this encounter Discharge Instructions * Discharge Instructions* Marguerite Burgess MD - 01/19/2025 8:27 PM CDT TODAY'S VISIT: - You should [...] with: - Your Primary Care Provider in 5 to 7 days unless symptoms completely resolve. - If you do not have a primary care provider, you can be seen in follow-up and establish care with one of our providers by calling of the the clinics below: --- [facility] (phone: [phone]) --- Primary Care / [facility] (phone: [phone]) - Have your provider review the results from today's visit with you again to make sure no further follow-up or additional testing is needed based on those results. PRESCRIPTIONS / MEDICATIONS: - You have been prescribed narcotic pain medication. You should not take this medication and use alcohol or other sedating substances or medications. Do not drive, operate heavy machinery, or engage in potentially dangerous activities while on this medication. This medication can also cause constipation and other adverse reactions. If you develop abnormal symptoms stop taking this medication and contact your medical provider. OTHER INSTRUCTIONS: - Do your best to [...] Care Everywhere. * Sickle Cell Crisis (Pashto) * Sickle Cell Disease (Pashto) documented in this encounter Medications at [...] 05/01/2024 naloxone (NARCAN) 4 MG/0.1ML nasal spray [place] 1 spray (4 mg) into one [...] ED Notes * Marguerite Burgess MD - 01/19/2025 5:45 PM CDT History Chief Complaint Patient presents [...] her of prior sickle cell pain crises. She presents to the emergency department today for pain described as similar to her prior sickle cell pain. She has pain in her back, bilateral legs, and upper back/neck. No HAs. No stiffness/rigidity. No HEENT sxs. No particular joint pain, no swelling. No trauma, no falls, no shortness of breath.No new concerns or changes No other new symptoms or concerns reported [...] all other systems negative. Physical Exam BP: 99/66 Pulse: 86 Resp: 18 Height: 152.4 cm (5') Weight: 49.9 kg (110 lb) SpO2: 98 [...] MUSCULOSKELETAL: Extremities warm and seemingly well perfused. No abnormal joint swelling. NEUROLOGIC: Awake, alert. Not disoriented. No seizure [...] crises. Clinically, patient appears nontoxic . Vitals NAD. Otherwise on examination, no obvious cardiopulmonary findings. No apparent joint/MSK findings. Ddx includes, but not limited to, acute on chronic pain, vasoocclusive crisis, no hx/findings for trauma, no findings for acute inflammatory or infectious arthritis, no sx's or findings for stroke, et al. PLAN: - Labs - Symptom management - Dispo pending ED Course RESULTS: Labs: - No apparent UTI - T bili 1.9 - Lactate normal - WBC improved Results/reports reviewed w/ patient who expresses understanding of findings and F/U recommendations. INTERVENTIONS: - IV dilaudid according to ED care plan RE-EVALUATION: - The patient's symptoms were improved and patient requested discharge. - Pt otherwise continues to do well [...] ability at this time. DISPOSITION/PLANNING: IMPRESSION: - Sickle cell w/ chronic pain, improved DISPOSITION: - Discharge FOLLOW-UP: - PCP / Heme OTHER RECOMMENDATIONS: - Conservative symptom management, strict return instructions Marguerite Burgess MD 01/19/2025 [facility] EMERGENCY DEPARTMENT Marguerite Burgess MD 01/20/25 1522 * Tammi Dave, RN - 01/19/2025 5:38 PM CDT Report generalized sickle cell crisis pain. Denied CP, SOB, NVD. Mpain 02/02 Triage Assessment (Adult) Row Name 01/19/25 1738 Triage Assessment Airway WDL WDL Respiratory WDL Respiratory WDL WDL Skin Circulation/Temperature WDL Skin Circulation/Temperature WDL WDL Cardiac WDL Cardiac WDL WDL Peripheral/Neurovascular WDL Peripheral Neurovascular WDL WDL Cognitive/Neuro/Behavioral WDL Cognitive/Neuro/Behavioral WDL WDL documented in this encounter Plan of Treatment Upcoming Encounters Date Type Department Care Team (Late st Contact Info) Description 02/15/2025 10:30 AM CDT Lab [facility] Cancer [address] [phone] Olinda Vora APRN DIRECTOR PUBLIC POLICY [address] [place] [phone] 02/15/2025 11:00 AM CDT Oncology Visit [facility] Cancer [address] [phone] Olnida Vora APRN DIRECTOR PUBLIC POLICY [address] [place] [id number] 04/09/2025 3:00 PM 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 [address] [address] Case Samuel MD [address] [place] [address], [address] [place], [place] [phone] 04/09/2025 3:30 PM 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 Oncology Visit [facility] Clinic [address] [place] [address] Case Samuel MD [address] [place] [address], [address] [place] [address] documented as of this encounter Goals Goal [...] UA WITH MICROSCOPIC REFLEX TO CULTURE STAT 01/19/2025 6:32 PM CDT LACTIC ACID WHOLE BLOOD WITH 1X REPEAT IN 2 HR WHEN >2 STAT 01/19/2025 6:15 PM CDT RBC AND PLATELET MORPHOLOGY STAT 01/19/2025 6:15 PM CDT CBC WITH PLATELETS AND DIFFERENTIAL STAT 01/19/2025 6:15 PM CDT CBC WITH PLATELETS AND DIFFERENTIAL (LIMITED OCCURRENCES) STAT 01/19/2025 6:15 PM CDT COMPREHENSIVE METABOLIC PANEL (LIMITED OCCURRENCES) STAT 01/19/2025 6:15 PM CDT RETICULOCYTE COUNT STAT 01/19/2025 6: 15 PM CDT INR STAT 01/19/2025 6:15 PM CDT HCG QUALITATIVE STAT 01/19/2025 6:15 PM CDT DIFFERENTIAL STAT 01/19/2025 6:15 PM CDT documented in this encounter Results * (ABNORMAL) UA with Microscopic reflex to Culture (01/19/2025 6:32 PM CDT) Color Urine Light Yellow Colorless, Straw, Light Yellow, Yellow 01/19/2025 7:33 PM CDT [facility] Appearance Urine Clear Clear 01/20/20 7:33 PM CDT [facility] Glucose Urine Negative Negative mg/dL 01/19/2025 7:33 PM CDT [facility] Bilirubin Urine Negative Negative 7:33 PM CDT [facility] Ketones Urine Negative Negative mg/dL 01/19/2025 7:33 PM CDT [facility] Specific [place]y Urine 1.012 1.003 - 1.035 01/19/2025 7:33 PM CDT [facility] Blood Urine Negative Negative 01/19/2025 7:33 PM CDT [facility] pH Urine 7.5(H) 5.0 - 7.0 01/19/2025 7:33 PM CDT [facility] Protein Albumin Urine Negative Negative mg/dL 01/19/2025 7:33 PM CDT [facility] Urobilinogen Urine 2.0(A) Normal mg/dL 01/19/2025 7:33 PM CDT [facility] Nitrite Urine Negative Negative 01/19/2025 7:33 PM CDT [facility] Leukocyte Esterase Urine Negative Negative 01/19/2025 7:33 PM CDT [facility] RBC Urine 0 <=2 /HPF 01/19/2025 7:33 PM CDT [facility] WBC Urine <1 <=5 /HPF 01/19/2025 7:33 PM CDT [facility] Squamous Epithelials Urine 1 <=1 /HPF 01/19/2025 7:33 PM CDT [facility] Urine URINE SPECIMEN OBTAINED BY CLEAN CATCH PROCEDURE / Unknown Non-blood Collection / Unknown 01/19/2025 6:32 PM CDT 01/19/2025 7:04 PM CDT Narrative [facility] - 01/19/2025 7:33 PM CDT Urine Culture not indicated us Marguerite Burgess MD LAB - URINE ORDERABLES Final Result [facility] [address] [facility], Room [address] [phone] * Manual Differential (01/19/2025 6:15 PM CDT) % Neutrophils 67.5 % 01/19/2025 7:16 PM CDT [facility] % Lymphocytes 20.2 % 01/19/2025 7:16 PM CDT [facility] % Monocytes 9.6 % 01/19/2025 7:16 PM CDT [facility] % Eosinophils 0.9 % 01/19/2025 7:16 PM CDT [facility] % Basophils 1.8 % 01/19/2025 7:16 PM CDT [facility] Absolute Neutrophils 7.32 1.60 - 8.30 10e3/uL 01/19/2025 7:16 PM CDT [facility] Absolute Lymphocytes 2.19 0.80 - 5.30 10e3/uL 01/19/2025 7:16 PM CDT [facility] Absolute Monocytes 1.05 0.00 - 1.30 10e3/uL 01/19/2025 7:16 PM CDT [facility] Absolute Eosinophils 0.10 0.00 - 0.70 10e3/uL 01/19/2025 7:16 PM CDT [facility] Absolute Basophils 0.19 0.00 - 0.20 10e3/uL 01/19/2025 7:16 PM CDT [facility] Blood BLOOD SPECIMEN / Unknown Venipuncture / Unknown 01/19/2025 6:15 PM CDT 01/19/2025 6:29 PM CDT us Marguerite Burgess MD LAB - BLOOD ORDERABLES Final Result [facility] [address] [facility], Room [address] * (ABNORMAL) RBC and Platelet Morphology (01/19/2025 6:15 PM CDT) [facility] RBC Morphology Confirmed RBC Indices 01/19/2025 7:16 PM CDT [facility] Platelet Assessment Automated Count Confirmed. Platelet morphology is normal. Automated Count Confirmed. Platelet morphology is normal. 01/19/2025 7:16 PM CDT [facility] Polychromasia Slight(A) None Seen 01/19/2025 7:16 PM CDT [facility] Sickle Cells Slight(A) None Seen 01/19/2025 7:16 PM CDT [facility] Target Cells Slight(A) None Seen 01/19/2025 7:16 PM CDT [facility] Blood BLOOD SPECIMEN / Unknown Venipuncture / Unknown 01/19/2025 6:15 PM CDT 01/19/2025 6:29 PM CDT us Marguerite Burgess MD LAB - BLOOD ORDERABLES Final Result [facility] [address] [facility], Room [address] * (ABNORMAL) CBC with platelets and differential (01/19/2025 6:15 PM CDT) [facility] WBC Count 10.84 4.00 - 11.00 10e3/uL 01/19/2025 7:16 PM CDT [facility] RBC Count 2.67(L) 3.80 - 5.20 10e6/uL 01/19/2025 7:16 PM CDT [facility] Hemoglobin 8.8(L) 11.7 - 15.7 g/dL 01/19/2025 7:16 PM CDT [facility] Hematocrit 26.3(L) 35.0 - 47.0 % 01/19/2025 7:16 PM CDT [facility] MCV 98.5 78.0 - 100.0 fL 01/19/2025 7:16 PM CDT [facility] MCH 33.0 26.5 - 33.0 pg 01/19/2025 7:16 PM CDT [facility] MCHC 33.5 31.5 - 36.5 g/dL 01/19/2025 7:16 PM CDT [facility] RDW 17.2(H) 10.0 - 15.0 % 01/19/2025 7:16 PM CDT [facility] Platelet Count 735(H) 150 - 450 10e3/uL 01/19/2025 7:16 PM CDT [facility] Blood BLOOD SPECIMEN / Unknown Venipuncture / Unknown 01/19/2025 6:15 PM CDT 01/19/2025 6:29 PM CDT Marguerite Burgess MD LAB - BLOOD ORDERABLES Final Result Performing Organization Address City/[facility]/ZIP Co de Phone Number [facility] [address] [facility], [address] * HCG qualitative Blood (01/19/2025 6:15 PM CDT) Pathologist [facility] hCG Serum Qualitative Negative Negative JARET 01/19/2025 6:58 PM CDT [facility] Comment:This test is for scr eening purposes. Results should be interpreted along with the clinical picture. Confirmation testing is available if warranted by ordering [id number], HCG Quantitative . Blood BLOOD SPECIMEN / Unknown Venipuncture / Unknown 01/19/2025 6:15 PM CDT 01/19/2025 6:28 PM CDT Marguerite Burgess MD LAB - BLOOD ORDERABLES Final Result [facility] [address] [facility], [address] [id number] * (ABNORMAL) Reticulocyte count (01/19/2025 6:15 PM CDT) % Reticulocyte 8.99(H) 0.50 - 2.00 % 01/19/2025 6:45 PM CDT [facility] Absolute Reticulocyte 0.2400(H) 0.0250 - 0.0950 10e6/uL 01/19/2025 6:45 PM CDT [facility] Blood BLOOD SPECIMEN / Unknown Venipuncture / Unknown 01/19/2025 6:15 PM CDT 01/19/2025 6:29 PM CDT Marguerite Burgess MD LAB - BLOOD ORDERABLES Final Result Performing Organization Address City/[facility]/ZIP Co de Phone Number [facility] [address] [facility], [address] * Lactic acid whole blood with 1x repeat in 2 hr when >2 (01/19/2025 6:15 PM CDT) Lactic Acid, Initial 0.8 0.7 - 2.0 mmol/L 01/19/2025 6:32 PM CDT [facility] Blood BLOOD SPECIMEN / Unknown Venipuncture / Unknown 01/19/2025 6:15 PM CDT 01/19/2025 6:28 PM CDT Marguerite Burgess MD LAB - BLOOD ORDERABLES Final Result Performing Organization Address City/[facility] Co de Phone Number [facility] [address] [facility], [address] * (ABNORMAL) Comprehensive Metabolic Panel (Limited Occurrences) (01/19/2025 6:15 PM CDT) Sodium 139 135 - 145 mmol/L 01/19/2025 7:09 PM CDT [facility] Potassium 4.5 3.4 - 5.3 mmol/L 01/19/2025 7:09 PM CDT [facility] Carbon Dioxide (CO2) 21(L) 22 - 29 mmol/L 01/19/2025 7:09 PM CDT [facility] Anion Gap 11 7 - 15 mmol/L 01/19/2025 7:09 PM CDT [facility] Urea Nitrogen 9.4 6.0 - 20.0 mg/dL 01/19/2025 7:09 PM CDT [facility] Creatinine 0.69 0.51 - 0.95 mg/dL 01/19/2025 7:09 PM CDT [facility] GFR Estimate >90 >60 mL/min/1.7 3m2 01/19/2025 7:09 PM CDT [facility] Comment:eGFR calculated us2020 CKD-EPI equation. Calcium 9.6 8.8 - 10.4 mg/dL 01/19/2025 7:09 PM CDT [facility] Chloride 107 98 - 107 mmol/L 01/19/2025 7:09 PM CDT [facility] Glucose 93 70 - 99 mg/dL 01/19/2025 7:09 PM CDT [facility] Alkaline Phosphatase 84 40 - 150 U/L 01/19/2025 7:09 PM CDT [facility] AST 39 0 - 45 U/L 01/19/2025 7:09 PM CDT [facility] ALT 25 0 - 50 U/L 01/19/2025 7:09 PM CDT [facility] Protein Total 8.4(H) 6.4 - 8.3 g/dL 01/19/2025 7:09 PM CDT [facility] Albumin 4.6 3.5 - 5.2 g/dL 01/19/2025 7:09 PM CDT [facility] Bilirubin Total 1.9(H) <=1.2 mg/dL 01/19/2025 7:09 PM CDT [facility] Blood BLOOD SPECIMEN / Unknown Venipuncture / Unknown 01/19/2025 6:15 PM CDT 01/19/2025 6:43 PM CDT us Marguerite Burgess MD LAB - BLOOD ORDERABLES Final Result [facility] [address] [facility], Room [address] [place] [address] * (ABNORMAL) INR (01/19/2025 6:15 PM CDT) INR 1.37(H) 0.85 - 1.15 01/19/2025 6:49 PM CDT [facility] PT 16.7(H) 11.8 - 14.8 Seconds 01/19/2025 6:49 PM CDT [facility] Blood BLOOD SPECIMEN / Unknown Venipuncture / Unknown 01/19/2025 6:15 PM CDT 01/19/2025 6:29 PM CDT us Marguerite Burgess MD LAB - BLOOD ORDERABLES Final Result [facility] [address] [facility], [address] [place] [address] documented in this encounter Visit Diagnoses Diagnosis 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 documented in this encounter Administered Medications Inactive Administered Medications - up to 3 most recent administrations Medication Order MAR Action Action Date Dose Rate Site hydromorphone (DILAUDID) injection 2 mg 2 mg, Intravenous, EVERY 1 HOUR PRN, severe pain, Starting on Wed01/19/25 at 1801, For 3 doses $Given 01/19/2025 8:31 PM CDT 2 mg $Given 01/19/2025 7:27 PM CDT 2 mg $Given 01/19/2025 6:31 PM CDT 2 mg documented in this encounter Active and Recently Administered Medications Times are shown in CDT. PRN Medication Order 01/17/2025 01/18/2025 01/19/2025 hydromorphone (DILAUDID) injection 2 mg (COMPLETED) 2 mg, Intravenous, EVERY 1 HOUR PRN, severe pain, Starting on Wed01/19/25 at 1801, For 3 doses 1831 ($Given - Provi nas: Mely Barbour RN)1926 ($Given - Provider: Mely Barbour RN)2030 ($Given - Provider: Mely Barbour RN) documented in this encounter Care Teams Asbestos Abatement Worker Relationship Specialty Start Date End Date Veronica Joseph MD [address] [place] [address] PCP - General Family Medicine 06/18/24 Mor Ramsey Medical Student 04/03/24 Case Samuel MD [address] [facility] [address], [address] [place] [address] Assigned Pediatric Specialist Provider 05/18/24 Juhi Benson, RN Specialty Sort Line Hematology & Oncology 05/29/24 Olinda Vora APRN DIRECTOR PUBLIC POLICY [address] [place] [address] Assigned Cancer Care Provider 08/16/24 Stiven Stanley LP [address] [place] [address] Psychologist PSYCHOLOGIST CLINICAL 10/25/24 Star Galarza MD [facility] [place] [address] Home Infusion Following Provider Infectious Diseases 11/07/24 documented as of this encounter
--- OUTSIDE RECORDS SUMMARY | 2025-01-20 12:06 | XMS_ITS | Encounter Summary ---
Author Organization [place] Address [facility] [place] [address] Care Team Providers Care Wet Pan Operator Name Role Phone RoxyElvirac Unavailable Unavailable Case Samuel MD Unavailable [phone] Juhi Benson RN Unavailable Unavailable Veronica Joseph MD Primary Care Provider [phone] Olinda Vora APRN SORT MANAGER Unavailable [phone] Stiven Stanley Unavailable Star Galarza MD Unavailable [phone] Reason for Visit * Reason Comments Sickle Cell Pain Crisis Encounter Details Date Type Department Care Team (Late st Contact Info) Description 01/20/2025 12:06 PM CDT - 01/20/2025 2:43 PM CDT Emergency [facility] Emergency Department [address] [place] [phone] Shauna Calle DO [facility] [place] [address] Sickle cell pain crisis (H) (Primary Dx) [...] in an overnight mcc, or couch-surfing.) Yes 11/09/2024 Are you worried [...] on file Legal Sex Female 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 Gender Identity Not on file Sexual Orientation Not on file documented as of this encounter Last Filed Vital Signs Vital Sign Reading Time Taken Comments Blood Pressure 121/77 01/20/2025 2:41 PM CDT Pulse 88 01/20/2025 2:41 PM CDT Temperature 36.9 C (98.5 F) 01/20/2025 12:04 PM CDT Respiratory Rate 18 01/20/2025 2:41 PM CDT Oxygen Saturation 97% 01/20/2025 2:41 PM CDT Inhaled Oxygen Concentration - - Weight - - Height - - Body Mass Index - - documented in this encounter Discharge Instructions * Discharge Instructions* Shauna Calle DO - 01/20/2025 2:42 PM CDT Follow with your spectroscopist as needed documented in this encounter Medications at Time [...] 05/01/2024 naloxone (NARCAN) 4 MG/0.1ML nasal spray [place] 1 spray (4 mg) into one nostril [...] 01/23/20 25 documented as of this encounter Consult Notes * Katja Sepulveda - 01/20/2025 12:48 PM CDTAssociated Order(s): CONSULT FOR INPATIENT VASCULAR ACCESS CARE; CONSULT FOR INPATIENT VASCULAR ACCESS CARE; CONSULT FOR INPATIENT VASCULAR ACCESS CARE; CONSULT FOR INPATIENT VASCULAR ACCESS CARE; CONSULT FOR INPATIENT VASCULAR ACCESS CARE; CONSULT FOR INPATIENT VASCULAR ACCESS CARE; CONSULT FOR INPATIENT VASCULAR ACCESS CARE; CONSULT FOR INPATIENT VASCULAR ACCESS CARE; CONSULT FOR INPATIENT VASCULAR ACCESS CARE; CONSULT FOR INPATIENT VASCULAR ACCESS CARE Consult received for Vascular Access Team. See LDA for details. For additional needs place Consultfor Inpatient Vascular Access Care [id number] order in [employer]. documented in this encounter ED Notes * Shauna Calle DO - 01/20/2025 12:07 PM CDT Verbal consent was obtained if AI documentation was used in the creation of this note. ED Provider Note [facility] History Chief [...] s/p cholecystectomy (09/08/24) who presents to the ED with sickle cell pain. Per chart review patient was seen on 01/18/25 for sickle cell pain crisis at [facility] ED. On evaluation, vitals are in acceptable ranges, normotensive, HR 81, afebrile, normoxic. Patient is awake, alert,answering questions appropriately, conversant, very pleasant. Breathing comfortably on room air, norespiratory distress, no adventitious lung sounds, normal heart [...] aplastic crisis and used shared decision making to defer further studies at this time. She was treated per her pain plan with dilaudid 2 mg IV x3, 1 liter LR over 2 hours, and zofran 8 mg IV. After completion of her care plan, she was feeling improved and felt comfortable discharging to home. Advised to follow-up with her usual providers for ongoing evaluation and management and to return to the ED with any new or worsening symptoms. Patient comes in with sickle cell pain citing similar symptoms as her previous visits (see chart review) but currently denies chest pain, shortness of breath, fevers, stroke symptoms. No other concerns at this time. Past Medical History Past Medical History: Diagnosis [...] all other systems negative. Physical Exam BP: 96/56 Pulse: 95 Temp: 98.5 ??F (36.9 ??C) Resp: 20 SpO2: 98 % Physical Exam General: No acute distress. HENT: Normocephalic and atraumatic. Eyes: EOMI. Conjunctivae normal. Cardiovascular: Normal rate and regular rhythm. Normal heart sounds. No murmur heard. Pulmonary: No respiratory distress. Normal breath sounds. Abdominal: There is no distension. Abdomen is soft. There is no mass. There is no abdominal tenderness. Musculoskeletal: No swelling or tenderness. Moving all extremities spontaneously. Skin: Warm and dry Neurological: No focal deficit present. Mood and Affect: Mood normal. ED Course, [...] note for details) that was ultimately deferred independent interpretation of testing performed by another health professional (see separate area of note for details) The patient's management necessitated high risk (a decision regarding hospitalization). \ Assessment & Plan Patient arrives to the emergency department for sickle cell pain crisis. On exam she appears very comfortable. Vitals within normal limits. No respiratory distress. Clear lung sounds. She was just in the emergency department yesterday. Lab work reviewed. No new or abnormal or concerning symptoms today, thus will defer repeat lab work. She was administered her ED care plan with lactated ringer bolus, Dilaudid 2 mg every hour x 3. On reevaluation, patient states she feels comfortable and ready to leave. She has a ride. I was informed by nursing staff that patient does arrive here in the emergency department every daywith the same complaint, however appears quite comfortable, and typically asks to leave after her second dose of Dilaudid, however would like her third IV dose prior to discharge. Hematology messagedregarding updating her care plan. I have reviewed the nursing notes. I have reviewed the findings, diagnosis, plan and need for follow up with the patient. New Prescriptions No medications on file Final diagnoses: None DO Latesha Wu [facility] EMERGENCY DEPARTMENT 01/20/2025 Shauna Calle DO 01/20/25 1522 * Alexsandra Farfan, RN - 01/20/2025 12:06 PM CDT Bed: [facility] Expected date: Expected time: Means of arrival: Comments: hw2 * Marguerite Jackson RN - 01/20/2025 12:04 PM CDT Pt arrives ambulatory to triage w/ c/o sickle cell pain. Pt states pain to lower back, BLE/BUE. Denies chest pain. Unsure of what caused flare. documented in this encounter Plan of Treatment Upcoming Encounters Date Type Department Care Team (Late st Contact Info) Description 02/15/2025 10:[address] [facility] Cancer [address] [phone] Olinda Vora APRN SORT MANAGER [address] [place] [phone] 02/15/2025 11:00 AM CDT Oncology Visit [facility] Cancer [address] [phone] Olinda Vora APRN SORT MANAGER [address] [place] [id number] 04/09/2025 3:00 PM TRACK MACHINE OPERATOR REPAIRER Lab [facility] Cancer [address] [phone] Case Samuel MD [address] [place] [address], [address] [place], [place] [address] 04/09/2025 3:30 PM TRACK MACHINE OPERATOR REPAIRER Oncology Visit [facility] Cancer [address] [phone] Case Samuel MD [address] [facility] [address], [address] [place] [address] documented as of this encounter [...] Date/Time Associated Diagnosis Comments EXTRA TUBE STAT 01/20/2025 12:31 PM CDT EXTRA PURPLE TOP TUBE STAT 01/20/2025 12:31 PM CDT EXTRA GREEN TOP (LITHIUM HEPARIN) TUBE STAT 01/20/2025 12:31 PM CDT documented in this encounter Results * Extra Purple Top Tube (01/20/2025 12:31 PM CDT) Hold Specimen [facility] 01/20/2025 1:47 PM CDT LABORATORY Blood BLOOD SPECIMEN / Unknown Venipuncture / Unknown 01/20/2025 12:31 PM CDT 01/20/2025 12:39 PM CDT us Shauna Calle DO LAB - BLOOD ORDERABLES Final Res ult U LABORATORY [facility] [place] [facility] Lab [address] [facility] [address], Room [address] [place] [address] * Extra Green Top (Rosalie Heparin) Tube (01/20/2025 12:31 PM CDT) Hold Specimen [facility] 01/20/2025 1:47 PM CDT U LABORATORY Blood BLOOD SPECIMEN / Unknown Venipuncture / Unknown 01/20/2025 12:31 PM CDT 01/20/2025 12:39 PM CDT Shauna Calle DO LAB - BLOOD ORDERABLES Final Res ult LABORATORY [facility] [place] [facility] [address] [facility], [address] [phone] documented in this encounter Visit Diagnoses Diagnosis 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 documented in this encounter Administered Medications Inactive Administered Medications - up to 3 most recent administrations Medication Order MAR Action Action Date Dose Rate Site hydromorphone (DILAUDID) injection 2 mg 2 mg, Intravenous, EVERY 1 HOUR PRN, severe pain, Starting on 01/20/25 at 1213, For 3 doses $Given 01/20/2025 2:37 PM CDT 2 mg $Given 01/20/2025 1:34 PM CDT 2 mg $Given 01/20/2025 12:39 PM CDT 2 mg lactated ringers BOLUS 500 mL Intravenous, 500 mL, EVERY 1 HOUR PRN, at 500 mL/hr, Administer over 1 Hours, other, pain, Starting on 01/20/25 at 1213, For 2 doses $New Bag 01/20/2025 12:32 PM CDT 500 mLs 500 mL/hr documented in this encounter Active and Recently Administered Medications Times are shown in CDT. PRN Medication Order 01/18/2025 01/19/2025 01/20/2025 hydromorphone (DILAUDID) injection 2 mg (COMPLETED) 2 mg, Intravenous, EVERY 1 HOUR PRN, severe pain, Starting on 01/20/25 at 1213, For 3 doses 1239 ($Given - Provi nas: Lali Haines RN)1334 ($Given - Provider: Lali Haines, SOFIA)1437 ($Given - Provider: Lali Haines, RN) lactated ringers BOLUS 500 mL Intravenous, 500 mL, EVERY 1 HOUR PRN, at 500 mL/hr, Administer over 1 Hours, other, pain, Starting on 01/20/25 at 1213, For 2 doses 1232 ($New Bag - Pro vider: Lali Haines, RN)1334 (Stopped - Provider: Lali Haines RN) documented in this encounter Care Teams Wet Pan Operator Relationship Specialty Start Date End Date Veronica Joseph MD [address] [place] [address] PCP - General Family Medicine 06/18/24 Roxy Mor Medical Student 04/03/24 Case Samuel MD [address] [facility] [address], [address] [place] [address] Assigned Pediatric Specialist Provider 05/18/24 Juhi Benson, SOFIA Specialty Consumer Insights Intern Hematology & Oncology 05/29/24 Olinda Vora APRN SORT MANAGER [address] [place] [address] Assigned Cancer Care Provider 08/16/24 Stiven Stanley LP [address] [place] [address] Psychologist PSYCHOLOGIST CLINICAL 10/25/24 Star Galarza MD [facility] [address] [place] [address] Home Infusion Following Provider Infectious Diseases 11/07/24 documented as of this encounter
--- OUTSIDE RECORDS SUMMARY | 2025-01-21 12:29 | XMS_ITS | Encounter Summary ---
Author Organization [place] Address [facility] [place] [address] Care Team Providers Care Make Ready Mechanic Name Role Phone RoxyElvirac Unavailable Unavailable Case Samuel MD Unavailable [phone] Juhi Benson RN Unavailable Unavailable Veronica Joseph MD Primary Care Provider [phone] Olinda Vora APRN SITE MONITOR Unavailable [phone] Stiven Stanley Unavailable Star Galarza MD Unavailable [phone] Reason for Visit * Reason Comments Sickle Cell Pain Crisis Encounter Details Date Type Department Care Team ([facility] st Contact Info) Description 01/21/2025 12:29 PM CDT - 01/21/2025 4:00 PM CDT Emergency [facility] Emergency Department [address] [place] [phone] Shauna Calle DO [address] [place], [place] [address] Alex Morton MD [address] [place] [address] Sickle cell pain crisis (H) [...] in an overnight detention, or couch-surfing.) Yes 11/09/2024 Are you worried [...] file Legal Sex Female 8:25 AM AUDIO VISUAL SPECIALIST Gender Identity Not on file Sexual Orientation Not on file documented as of this encounter Last Filed Vital Signs Vital Sign Reading Time Taken Comments Blood Pressure 114/43 01/21/2025 12:26 PM CDT Pulse 99 01/21/2025 12:24 PM CDT Temperature 36.4 C (97.6 F) 01/21/2025 12:24 PM CDT Respiratory Rate 18 01/21/2025 12:24 PM CDT Oxygen Saturation 99% 01/21/2025 12:24 PM CDT Inhaled Oxygen Concentration - - Weight - - Height - - Body Mass Index - - documented in this encounter Discharge Instructions * Discharge Instructions* Alex Morton MD - 01/21/2025 3:58 PM CDT Thanks for come to the [facility]. You were seen in the emergency department. You received your sickle cell crisis care pain. We are glad you are feeling better. Please continue to follow-up closely with your hematology team. Return to the ED if you develop any new or concerning symptoms before then. * Attachments The following attachments cannot be sent through Care Everywhere. * Sickle Cell Crisis (Faroese) documented in this encounter Medications at [...] 120 capsule 05/01/2024 multivitamin, therapeutic (THERA-VIT) TABS tabletIndications: History of transfusion,Hb-SS disease without crisis (H) Take 1 tablet by mouth daily. 30 tablet 05/01/2024 naloxone (NARCAN) 4 MG/0.1ML nasal spray [place] 1 spray (4 mg) into one nostril [...] as of this encounter ED Notes * Alex Morton MD - 01/21/2025 12:33 PM CDT Images from the original note were not included. ED Provider Note [facility] EMERGENCY DEPARTMENT ([facility]) 01/21/25 ED PROVIDER NOTE History Chief Complaint Patient [...] emergency department for sickle cell pain crisis. She denies chest pain shortness of breath productive cough fevers or chills. 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 Physical Exam BP: 114/43 Pulse: 99 Temp: 97.6 ??F (36.4 ??C) Resp: 18 SpO2: 99 % Physical Exam Vital Signs Reviewed Gen: Well nourished, well developed, resting comfortably, no acute distress HEENT: NC/AT, PERRL, EOMI, MMM Neck: Supple, FROM CV: Regular Rate, no murmur/rub/gallop Lungs/Chest: Normal Effort, CTAB Abd: Non-distended, non-tender MSK/Back: FROM, no visible deformity Neuro: A&Ox3, GCS 15, CN II-XII unremarkable Skin: Warm, Dry, Intact, no visible lesions ED Course, Procedures, & Data Procedures Medications hydromorphone (DILAUDID) injection 2 mg (2 mg Intravenous $Given 01/21/25 1554) lactated ringers BOLUS 1,000 mL (0 mLs Intravenous Stopped 01/21/25 1500) ondansetron (ZOFRAN) injection 8 mg (8 mg Intravenous Not Given 01/21/25 1558) Critical care was not performed. Medical Decision Making The patient's presentation was of high complexity (a chronic illness severe exacerbation, progression, or side effect of treatment). The patient's evaluation involved: strong consideration of a test (see separate area of note for details) that was ultimately deferred The patient's management necessitated high risk (a [...] department for sickle cell pain crisis. Patient is afebrile with reassuringvital signs. Sickle cell care plan was reviewed and initiated. Considered blood work but patient has had labs on ED visit a couple days ago and visits appear consistent with prior pain issues. Hematology does not recommend routine labs in these patients and she has no symptoms other that she reports is her usual sickle cell pain. Patient improved with sickle cell care plan. Stable for discharge and outpatient follow-up. I have reviewed the nursing notes. I have reviewed the findings, diagnosis, plan and need for follow up with the patient. Discharge Medication List as of 01/21/2025 3:59 PM Final diagnoses: Sickle cell pain crisis (H) Alex Morton Jr., MD [facility] EMERGENCY DEPARTMENT 01/21/2025 Alex Morton MD 01/21/252051 * Alexsandra Farfan RN - 01/21/2025 12:29 PM CDT Bed: [facility] Expected date: Expected time: Means of arrival: Comments: hw2 * Juhi Crump RN - 01/21/2025 12:26 PM CDT Pt arrives ambulatory from home with sickle cell crisis. Pt states pain in generalized, denied chest pain. Triage Assessment (Adult) Row Name 01/21/25 1226 Triage Assessment Airway WDL WDL documented in this encounter Plan of Treatment Upcoming Encounters Date Type Department Care Team (Late st Contact Info) Description 02/15/2025 10:30 AM CDT Lab [facility] Cancer [facility] [address] [place] [phone] Olinda Vora APRN SITE MONITOR [address] [place] [phone] 02/15/2025 11:00 AM CDT Oncology Visit [facility] Cancer [address] [phone] Olinda Vora APRN SITE MONITOR [address] [place] [address] 04/09/2025 3:00 PM AUDIO VISUAL SPECIALIST Lab [address] [phone] Case Samuel MD [address] [place] [address], [address] [place], [place] [address] 04/09/2025 3:30 PM AUDIO VISUAL SPECIALIST Oncology Visit [address] [phone] Case Samuel MD [address] [place] [address], [address] [place] [address] documented as of this encounter Goals Goal [...] 1 HOUR PRN, severe pain, Starting on 01/21/25 at 1344, For 3 doses $Given 01/21/2025 3:54 PM CDT 2 mg $Given 01/21/2025 2:55 PM CDT 2 mg $Given 01/21/2025 1:56 PM CDT 2 mg lactated ringers BOLUS 1,000 mL Intravenous, 1,000 mL, ONCE, at 500 mL/hr, Administer over 2 Hours, On 01/21/25 at 1350, For 1 dose $New Bag 01/21/2025 1:56 PM CDT 1,000 mLs 500 mL/hr documented in this encounter Active and Recently Administered Medications Times are shown in CDT. Scheduled Medication Order 01/19/2025 01/20/2025 01/21/2025 lactated ringers BOLUS 1,000 mL (COMPLETED) Intravenous, 1,000 mL, ONCE, at 500 mL/hr, Administer over 2 Hours, On 01/21/25 at 1350, For 1 dose 1356 ($New Bag - Pro vider: Alex Fernandez RN)1500 (Stopped - Provider: Alex Fernandez RN) PRN Medication Order 01/19/2025 01/20/2025 01/21/2025 hydromorphone (DILAUDID) injection 2 mg (COMPLETED) 2 mg, Intravenous, EVERY 1 HOUR PRN, severe pain, Starting on 01/21/25 at 1344, For 3 doses 1356 ($Given - Provi nas: Alex Fernandez RN)1455 ($Given - Provider: Alex Fernandez RN)1554 ($Given - Provider: Ifrah Zamora RN) documented in this encounter Care Teams Make Ready Mechanic Relationship Specialty Start Date End Date Veronica Joseph MD [address] [place] [address] PCP - General Family Medicine 06/18/24 Mor Ramsey Student 04/03/24 Case Samuel MD [address] [facility] [address], [address] [place] [address] Assigned Pediatric Specialist Provider 05/18/24 Juhi Benson, RN Specialty Shingle Carrier Hematology & Oncology 05/29/24 Olinda Vora APRN SITE MONITOR [address] [place] [phone] Assigned Cancer Care Provider 08/16/24 Stiven Stnaley LP [address] [place] [address] Psychologist PSYCHOLOGIST CLINICAL 10/25/24 Star Galarza MD [facility] [address] [place], [place] [address] Home Infusion Following Provider Infectious Diseases 11/07/24 documented as of this encounter
--- OUTSIDE RECORDS SUMMARY | 2025-01-23 21:25 | XMS_ITS | Encounter Summary ---
Author Organization [facility] Address [address] [place] [address]. [place] [address] Care Team Providers Care Delivery Driver Assistant Name Role Phone Roxy Mor Unavailable Unavailable Case Samuel MD Unavailable [phone] Juhi Benson RN Unavailable Unavailable Veronica Joseph MD Primary Care Provider [phone] Olinda Vora APRN HEAT TREATMENT TECHNICIAN Unavailable [phone] Stiven Stanley Unavailable Star Galarza MD Unavailable [phone] Reason for Visit * Reason Comments Sickle Cell Pain Crisis Encounter Details Date Type Department Care Team (Late st Contact Info) Description 01/23/2025 9:25 PM CDT - 01/24/2025 1:04 AM CDT Emergency [facility] Emergency Department [address] [place] [phone] Leonardo Schroeder MD [address] [place] [id number] Sickle cell disease with crisis (H) (Primary [...] on file 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 * Sickle Cell Crisis ([place]man[place]) documented in this encounter Medications at Time [...] 05/01/2024 naloxone (NARCAN) 4 MG/0.1ML nasal spray [place] 1 spray (4 mg) into one nostril [...] Week supply. No early refills 24 tablet 01/22/2025 01/30/20 25 documented as of this encounter ED Notes * Leonardo Schroeder MD - 01/23/2025 9:43 PM CDT Verbal consent was obtained if AI documentation was used in the creation of this note. 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 Patient says she is currently moving so that is triggering her pain in her low back , typical of her symptoms. Denies any CP, fevers or cough, no uti sxs, no abd pain, nausea or vomiting. Physical Exam BP: 101/58 Pulse: 85 Temp: 98 ??F (36.7 ??C) Resp: 18 SpO2: 100 % Physical Exam Vitals and nursing note reviewed. Constitutional: General: She is not in acute distress. Appearance: Normal appearance. HENT: Mouth/Throat: Mouth: Mucous membranes are moist. Eyes: Extraocular Movements: Extraocular movements intact. Pupils: Pupils are equal, round, and reactive to light. Cardiovascular: Rate and Rhythm: Normal rate and regular rhythm. Pulses: Normal pulses. Heart sounds: Normal heart sounds. Pulmonary: Effort: Pulmonary effort is normal. Breath sounds: Normal breath sounds. Abdominal: Palpations: Abdomen is soft. Tenderness: There is no abdominal tenderness. Musculoskeletal: Cervical back: Normal range of motion. Skin: General: Skin is warm. Neurological: General: No focal deficit present. Mental Status: She is alert and oriented to person, place, and time. ED Course, Procedures, & Data ED Course as of 01/24/25 0100 WedJan 24, 2025 0033 Patient notes pain mostly improved after 2 rounds, would like last one then discharge. Procedures Results for orders placed or performed during the hospital encounter of 01/23/25 Extra Blue Top Tube Result Value Ref Range Hold Specimen JIC Extra Red Top Tube Result Value Ref Range Hold Specimen JIC Extra Green Top (Dragoon Heparin) Tube Result Value Ref Range Hold Specimen JIC Extra Purple Top Tube Result Value Ref Range Hold Specimen JIC Medications hydromorphone (DILAUDID) injection 2 mg (2 mg Intravenous $Given 01/23/25 2238) lactated ringers BOLUS 1,000 mL (0 mLs Intravenous Stopped 01/23/258) hydromorphone (DILAUDID) injection 2 mg (2 mg Intravenous $Given 01/23/25 2346) hydromorphone (DILAUDID) injection 2 mg (2 mg Intravenous $Given 01/24/25 0057) Critical care was not performed. Medical Decision Making The patient's presentation was of low complexity (a stable chronic illness). The patient's evaluation involved: an assessment requiring an independent historian (see separate area of note for details) The patient's management necessitated only low risk treatment. Assessment & Plan 29yo F with typical SCD crisis symptoms, given normal recent labs and no significant change in presentation will forego labs today. Will give pain meds and reassess. I have reviewed the nursing notes. I have reviewed the findings, diagnosis, plan and need for follow up with the patient. New Prescriptions No medications on file Final diagnoses: Sickle cell disease with crisis (H) Leonardo Schroeder MD [facility] EMERGENCY [facility]PARTMENT 01/23/2025 Leonardo Schroeder MD 01/24/25 0100 * Oriana Marquis RN - 01/23/2025 9:25 PM CDT Bed: [facility] Expected date: Expected time: Means of arrival: Comments: [address] * Marilin Kidd RN - 01/23/2025 9:21 PM CDT Pt arrives to triage with complaints of sickle cell pain crisis, mainly in her lower back. States this started this morning. VSS, afebrile. Triage Assessment (Adult) Row Name 01/23/252120 Triage Assessment Airway WDL WDL Respiratory WDL Respiratory WDL WDL Skin Circulation/Temperature WDL Skin Circulation/Temperature WDL WDL Cardiac WDL Cardiac WDL WDL Peripheral/Neurovascular WDL Peripheral Neurovascular WDL WDL Cognitive/Neuro/Behavioral WDL Cognitive/Neuro/Behavioral WDL WDL Marilin Kidd RN documented in this encounter Plan of Treatment Upcoming Encounters Date Type Department Care Team (Late st Contact Info) Description 02/15/2025 10:30 AM CDT Lab [facility] [address] [phone] Olinda Vora APRN HEAT TREATMENT TECHNICIAN [address] [place] [id number] 02/15/2025 11:00 AM CDT Oncology Visit [address] [phone] Olinda Vora APRN HEAT TREATMENT TECHNICIAN [address] [place] [address] 04/09/2025 3:00 PM CLEANER OPERATOR Lab [facility] [address] [phone] Case Samuel MD [address] [place] [address], [address] [place], [place] [address] 04/09/2025 3:30 PM CLEANER OPERATOR Oncology Visit [facility] [address] [phone] Case Samuel MD [address] [facility] [address], [address] [place] [address] documented as of this encounter Goals Goal [...] Date/Time Associated Diagnosis Comments EXTRA TUBE STAT 01/23/2025 9:35 PM CDT EXTRA PURPLE TOP TUBE STAT 01/23/2025 9:35 PM CDT EXTRA GREEN TOP (LITHIUM HEPARIN) TUBE STAT 01/23/2025 9:35 PM CDT EXTRA RED TOP TUBE STAT 01/23/2025 9: 35 PM CDT EXTRA BLUE TOP TUBE STAT 01/23/2025 9 :35 PM CDT documented in this encounter Results * Extra Purple Top Tube (01/23/2025 9:35 PM CDT) Hold Specimen [facility] 01/23/2025 10:46 PM CDT [facility] Blood BLOOD SPECIMEN / Unknown Venipuncture / Unknown 01/23/2025 9:35 PM CDT 01/23/2025 9:41 PM CDT us Leonardo Schroeder MD LAB - BLOOD ORDERABLES Liss l Result LABORATORY [facility] [address] [facility], [address] [phone] * Extra Green Top (Dragoon Heparin) Tube (01/23/2025 9:35 PM CDT) Hold Specimen [facility] 01/23/2025 10:46 PM CDT LABORATORY Blood BLOOD SPECIMEN / Unknown Venipuncture / Unknown 01/23/2025 9:35 PM CDT 01/23/2025 9:40 PM CDT us Leonardo Schroeder MD LAB - BLOOD ORDERABLES Liss l Result LABORATORY [facility] [address] [facility], [address] [phone] * Extra Red Top Tube (01/23/2025 9:35 PM CDT) Hold Specimen [facility] 01/23/2025 10:46 PM CDT LABORATORY Blood BLOOD SPECIMEN / Unknown Venipuncture / Unknown 01/23/2025 9:35 PM CDT 01/23/2025 9:40 PM CDT us Leonardo Schroeder MD LAB - BLOOD ORDERABLES Liss l Result [facility]ORATORY [facility] [address] [facility], [address] [phone] * Extra Blue Top Tube (01/23/2025 9:35 PM CDT) Hold Specimen [facility] 01/23/2025 10:46 PM CDT LABORATORY Blood BLOOD SPECIMEN / Unknown Venipuncture / Unknown 01/23/2025 9:35 PM CDT 01/23/2025 9:40 PM CDT us Leonardo Schroeder MD LAB - BLOOD ORDERABLES [address] Result [facility] LABORATORY [facility] [address] [facility], [address] [place] [address], [facility] documented in this encounter Visit Diagnoses Diagnosis Sickle cell disease with crisis (H)- Primary Hb-SS disease with crisis documented in this encounter Administered Medications Inactive Administered Medications - up to 3 most recent administrations Medication Order MAR Action Action Date Dose Rate Site hydromorphone (DILAUDID) injection 2 mg 2 mg, Intravenous, ONCE, On Wed01/23/25 at 2230, For 1 dose $Given 01/23/2025 10:38 PM CDT 2 mg hydromorphone (DILAUDID) injection 2 mg 2 mg, Intravenous, ONCE, On Wed01/23/25 at 2335, For 1 dose $Given 01/23/2025 11:46 PM CDT 2 mg hydromorphone (DILAUDID) injection 2 mg 2 mg, Intravenous, ONCE, On Wed01/24/25 at 0035, For 1 dose $Given 01/24/2025 12:57 AM CDT 2 mg lactated ringers BOLUS 1,000 mL Intravenous, 1,000 mL, ONCE, at 1,000 mL/hr, Administer over 1 Hours, On Wed01/23/25 at 2230, For 1 dose $New Bag 01/23/2025 10:39 PM CDT 1,000 mLs 1000 mL/hr documented in this encounter Active and Recently Administered Medications Times are shown in CDT. Scheduled Medication Order 01/22/2025 01/23/2025 01/24/2025 hydromorphone (DILAUDID) injection 2 mg (COMPLETED) 2 mg, Intravenous, ONCE, On Wed01/23/25 at 2230, For 1 dose 2238 ($Given - Provider: Urszula Barreto RN) hydromorphone (DILAUDID) injection 2 mg (COMPLETED) 2 mg, Intravenous, ONCE, On Wed01/23/25 at 2335, For 1 dose 2346 ($Given - Provider: Urszula Barreto RN) hydromorphone (DILAUDID) injection 2 mg (COMPLETED) 2 mg, Intravenous, ONCE, On Wed01/24/25 at 0035, For 1 dose 0057 ($Given - Provi nas: Marilin Kidd RN) lactated ringers BOLUS 1,000 mL (COMPLETED) Intravenous, 1,000 mL, ONCE, at 1,000 mL/hr, Administer over 1 Hours, On Wed01/23/25 at 2230, For 1 dose 2239 ($New Bag - Provider: Urszula Barreto, SOFIA)[id number] (Stopped - Provider: Urszula Barreto RN) documented in this encounter Care Teams Delivery Driver Assistant Relationship Specialty Start Date End Date Veronica Joseph MD [address] [place] [address] PCP - General Family Medicine 06/18/24 Roxy [facility] Medical Student 04/03/24 Case Samuel MD [address] [facility] [address], [address] [place] [address] Assigned Pediatric Specialist Provider 05/18/24 Juhi Benson, SOFIA Specialty Environment Artist Hematology & Oncology 05/29/24 Olinda Vora APRN HEAT TREATMENT TECHNICIAN [address] [place], [place] [address] Assigned Cancer Care Provider 08/16/24 Stiven Stanley LP [address] [place] [address] Psychologist PSYCHOLOGIST CLINICAL 10/25/24 Star Galarza MD [facility] [address] [place] [address] Home Infusion Following Provider Infectious Diseases 11/07/24 documented as of this encounter
--- OUTSIDE RECORDS SUMMARY | 2025-01-24 20:41 | XMS_ITS | Encounter Summary ---
Author Organization [facility] Address [address] [place] [address]. [place] [address] Care Team Providers Care Elevators Inspector Name Role Phone RoxyElvirac Unavailable Unavailable Case Samuel MD Unavailable [phone] Juhi Benson RN Unavailable Unavailable Veronica Joseph MD Primary Care Provider [phone] Olinda Vora APRN [place] Unavailable [phone] Stiven Stanley Unavailable Star Galarza MD Unavailable [phone] Reason for Visit * Reason Comments Sickle Cell Pain Crisis Encounter Details Date Type Department Care Team ([facility] st Contact Info) Description 01/24/2025 8:41 PM CDT - 01/25/2025 12:10 AM CDT Emergency Formerly [facility] Emergency Department [address] [place] [phone] Marguerite Burgess MD [address] [place] [id number] Sickle cell pain crisis (H) (Primary Dx) [...] on file Legal Sex Female 8:25 AM NEIGHBORHOOD COORDINATOR Gender Identity Not on file Sexual Orientation Not on file documented as of this encounter Last Filed Vital Signs Vital Sign Reading Time Taken Comments Blood Pressure 102/64 01/25/2025 12:04 AM CDT Pulse - - Temperature 36.8 C (98.3 F) 01/25/2025 12:07 AM CDT Respiratory Rate 20 01/25/2025 12:07 AM CDT Oxygen Saturation 99% 01/25/2025 12:05 AM CDT Inhaled Oxygen Concentration - - Weight - - Height - - Body Mass Index - - documented in this encounter Discharge Instructions * Discharge Instructions* Marguerite Burgess MD - 01/25/2025 12:09 AM CDT Follow-up closely with your usual providers. Immediately return to the nearest Emergency Department with any new or worsening symptoms or any concerns. * Attachments The following attachments cannot be sent through Care Everywhere. * Sickle Cell Disease (Swedish) * Sickle Cell Crisis (Swedish) documented in [...] 05/01/2024 naloxone (NARCAN) 4 MG/0.1ML nasal spray [place] 1 spray (4 mg) into one nostril [...] 01/30/20 25 documented as of this encounter Consult Notes * Reyna Henry RN - 01/24/2025 10:03 PM CDTAssociated Order(s): CONSULT FOR INPATIENT VASCULAR ACCESS CARE; CONSULT FOR INPATIENT VASCULAR ACCESS CARE Summary: PIV and lab draw Consult received for Vascular Access Team. See LDA for details. For additional needs place Consultfor Inpatient Vascular Access Care [id number] order in [facility]. documented in this encounter ED Notes * Ifrah Zamora RN - 01/24/2025 9:11 PM CDT Ambulatory to ED d/t sickle cell pain - back & legs 01/03. * Marguerite Burgess MD - 01/24/2025 8:42 PM CDT History No chief complaint on file. HPI Gianna Hernández is a 29 year [...] prior sickle cell pain crises. Patient presents today w/ recurrent pain. She has pain in her back, bilateral legs, and upper back,no neck today. She describes the pain as similar to her prior sickle cell pain in nature and location. No trauma, no falls, no shortness of breath.No sx's for acute chest syndrome. No new concerns orchanges. No particular joint pain, no swelling. No HAs. No stiffness/rigidity. No HEENT sxs. No other new symptoms or concerns reported [...] other systems negative. Physical Exam Physical Exam CONSTITUTIONAL: Awake and alert. Non-toxic [...] sickle cell pain crises. Clinically, patient appears well. No acute or emergent findings. Ddx includes, but not limited to, acute on chronic pain, vasoocclusive crisis, no findings for infection, no findings for acute chest,no other acute findings or concerns on H or P. PLAN: - Labs - Symptom management - Dispo pending ED Course INTERVENTIONS: - IVF and IV dilaudid according to ED care plan RE-EVALUATION: - The patient's symptoms were improved - Pt otherwise continues to do well [...] ability at this time. DISPOSITION/PLANNING: IMPRESSION: - sickle cell disease, recurrent pain DISPOSITION: - Discharge to home FOLLOW-UP: - w/ PCP, Heme OTHER RECOMMENDATIONS: - Conservative symptom management, strict return instructions Marguerite Burgess MD 01/24/2025 [facility] EMERGENCY DEPARTMENT Marguerite Burgess MD 01/28/25 0826 * Shauna Pardo RN - 01/24/2025 8:41 PM CDT Bed: [facility] Expected date: Expected time: Means of arrival: Comments: Recliner documented in this encounter Plan of Treatment Upcoming Encounters Date Type Department Care Team (Late st Contact Info) Description 02/15/2025 10:30 AM CDT Lab [facility] Cancer [address] [phone] Olinda Vora APRN [address] [id number] 02/15/2025 11:00 AM CDT Oncology Visit [facility] Cancer [address] [phone] nataliiaOlinda APRN [place] [address] [place] [phone] 04/09/2025 3:00 PM NEIGHBORHOOD COORDINATOR Lab [facility] [address] [place] [phone] Case Samuel MD [address] [place] [address], [address] [place], [place] [phone] 04/09/2025 3:30 PM NEIGHBORHOOD COORDINATOR Oncology Visit [address] [phone] Case Samuel MD [address] [place] [address], [address] [place], [place] [phone] documented as of this encounter Goals Goal [...] Diagnosis Comments RBC AND PLATELET MORPHOLOGY STAT 01/24/2025 9:27 PM CDT CBC WITH PLATELETS AND DIFFERENTIAL STAT 01/24/2025 9:27 PM CDT CBC WITH PLATELETS AND DIFFERENTIAL (LIMITED OCCURRENCES) STAT 01/24/2025 9:27 PM CDT COMPREHENSIVE METABOLIC PANEL (LIMITED OCCURRENCES) STAT 01/24/2025 9:27 PM CDT RETICULOCYTE COUNT STAT 01/24/2025 9: 27 PM CDT INR STAT 01/24/2025 9:27 PM CDT HCG QUALITATIVE STAT 01/24/2025 9:27 PM CDT documented in this encounter Results * (ABNORMAL) RBC and Platelet Morphology (01/24/2025 9:27 PM CDT) RBC Morphology Confirmed RBC Indices 01/24/2025 10:14 PM CDT [facility] Platelet Assessment Automated Count Confirmed. Platelet morphology is normal. Automated Count Confirmed. Platelet morphology is normal. 01/24/2025 10:14 PM CDT [facility] Polychromasia Slight(A) None Seen 01/24/2025 10:14 PM CDT [facility] Sickle Cells Slight(A) None Seen 01/24/2025 10:14 PM CDT [facility] Target Cells Slight(A) None Seen 01/24/2025 10:14 PM CDT [facility] Blood BLOOD SPECIMEN / Unknown Venipuncture / Unknown 01/24/2025 9:27 PM CDT 01/24/2025 9:37 PM CDT us Marguerite Burgess MD LAB - BLOOD ORDERABLES Final Result [facility] [place] [facility] [address] [facility], [address] [place] [address] * (ABNORMAL) CBC with platelets and differential (01/24/2025 9:27 PM CDT) WBC Count 12.51(H) 4.00 - 11.00 10e3/uL 01/24/2025 10:14 PM CDT [facility] RBC Count 2.49(L) 3.80 - 5.20 10e6/uL 01/24/2025 10:14 PM CDT [facility] Hemoglobin 8.4(L) 11.7 - 15.7 g/dL 01/24/2025 10:14 PM CDT [facility] Hematocrit 24.4(L) 35.0 - 47.0 % 01/24/2025 10:14 PM CDT [facility] MCV 98.0 78.0 - 100.0 fL 01/24/2025 10:14 PM CDT [facility] MCH 33.7(H) 26.5 - 33.0 pg 01/24/2025 10:14 PM CDT [facility] MCHC 34.4 31.5 - 36.5 g/dL 01/24/2025 10:14 PM CDT [facility] RDW 17.4(H) 10.0 - 15.0 % 01/24/2025 10:14 PM CDT [facility] Platelet Count 517(H) 150 - 450 10e3/uL 01/24/2025 10:14 PM CDT [facility] % Neutrophils 56.7 % 01/24/2025 10:14 PM CDT [facility] % Lymphocytes 28.9 % 01/24/2025 10:14 PM CDT [facility] % Monocytes 11.8 % 01/24/2025 10:14 PM CDT [facility] % Eosinophils 1.0 % 01/24/2025 10:14 PM CDT [facility] % Basophils 1.0 % 01/24/2025 10:14 PM CDT [facility] % Immature Granulocytes 0.6 % 01/24/2025 10:14 PM CDT [facility] NRBCs per 100 WBC 1.4(H) <1.0 /100 01/24/2025 10:14 PM CDT [facility] Absolute Neutrophils 7.09 1.60 - 8.30 10e3/uL 01/24/2025 10:14 PM CDT [facility] Absolute Lymphocytes 3.62 0.80 - 5.30 10e3/uL 01/24/2025 10:14 PM CDT [facility] Absolute Monocytes 1.47(H) 0.00 - 1.30 10e3/uL 01/24/2025 10:14 PM CDT [facility] Absolute Eosinophils 0.13 0.00 - 0.70 10e3/uL 01/24/2025 10:14 PM CDT [facility] Absolute Basophils 0.12 0.00 - 0.20 10e3/uL 01/24/2025 10:14 PM CDT [facility] Absolute Immature Granulocytes 0.08 <=0.40 10e3/uL 01/24/2025 10:14 PM CDT [facility] Absolute NRBCs 0.17 10e3/uL 01/24/2025 10:14 PM CDT [facility] Blood BLOOD SPECIMEN / Unknown Venipuncture / Unknown 01/24/2025 9:27 PM CDT 01/24/2025 9:37 PM CDT Marguerite Burgess MD LAB - BLOOD ORDERABLES Final Result Performing Organization Address [facility] Co de Phone Number [facility] [place] [facility] [address] [facility], [facility] [address] * HCG qualitative Blood (01/24/2025 9:27 PM CDT) Pathologist [facility] hCG Serum Qualitative Negative Negative JARET 01/24/2025 9:57 PM CDT [facility] Comment:This test is for scr eening purposes. Results should be interpreted along with the clinical picture. Confirmation testing is available if warranted by ordering [id number], HCG Quantitative . Blood BLOOD SPECIMEN / Unknown Venipuncture / Unknown 01/24/2025 9:27 PM CDT 01/24/2025 9:37 PM CDT us Marguerite Burgess MD LAB - BLOOD ORDERABLES Final Result [facility] [place] [facility] [address] [facility], Room [address] * (ABNORMAL) Reticulocyte count (01/24/2025 9:27 PM CDT) % Reticulocyte 12.65(H) 0.50 - 2.00 % 01/24/2025 9:43 PM CDT [facility] Absolute Reticulocyte 0.3150(H) 0.0250 - 0.0950 10e6/uL 01/24/2025 9:43 PM CDT [facility] Blood BLOOD SPECIMEN / Unknown Venipuncture / Unknown 01/24/2025 9:27 PM CDT 01/24/2025 9:37 PM CDT us Marguerite Burgess MD LAB - BLOOD ORDERABLES Final Result [facility] [place] [facility] [address] [facility], [address] [place] [address] * (ABNORMAL) Comprehensive Metabolic Panel (Limited Occurrences) (01/24/2025 9:27 PM CDT) Sodium 139 135 - 145 mmol/L 01/24/2025 10:11 PM CDT [facility] Potassium 4.3 3.4 - 5.3 mmol/L 01/24/2025 10:11 PM CDT [facility] Carbon Dioxide (CO2) 23 22 - 29 mmol/L 01/24/2025 10:11 PM CDT [facility] Anion Gap 11 7 - 15 mmol/L 01/24/2025 10:11 PM CDT [facility] Urea Nitrogen 9.3 6.0 - 20.0 mg/dL 01/24/2025 10:11 PM CDT [facility] Creatinine 0.75 0.51 - 0.95 mg/dL 01/24/2025 10:11 PM CDT [facility] GFR Estimate >90 >60 mL/min/1.7 3m2 01/24/2025 10:11 PM CDT [facility] Comment:eGFR calculated us2020 CKD-EPI equation. Calcium 9.8 8.8 - 10.4 mg/dL 01/24/2025 10:11 PM CDT [facility] Chloride 105 98 - 107 mmol/L 01/24/2025 10:11 PM CDT [facility] Glucose 85 70 - 99 mg/dL 01/24/2025 10:11 PM CDT [facility] Alkaline Phosphatase 80 40 - 150 U/L 01/24/2025 10:11 PM CDT [facility] AST 41 0 - 45 U/L 01/24/2025 10:11 PM CDT [facility] ALT 24 0 - 50 U/L 01/24/2025 10:11 PM CDT [facility] Protein Total 8.2 6.4 - 8.3 g/dL 01/24/2025 10:11 PM CDT [facility] Albumin 4.5 3.5 - 5.2 g/dL 01/24/2025 10:11 PM CDT [facility] Bilirubin Total 2.0(H) <=1.2 mg/dL 01/24/2025 10:11 PM CDT [facility] Blood BLOOD SPECIMEN / Unknown Venipuncture / Unknown 01/24/2025 9:27 PM CDT 01/24/2025 9:37 PM CDT us Marguerite Burgess MD LAB - BLOOD ORDERABLES Final Result Performing Organization Address [facility] de Phone Number [facility] [address] [facility], [facility] [address] * (ABNORMAL) INR (01/24/2025 9:27 PM CDT) INR 1.29(H) 0.85 - 1.15 01/24/2025 10:07 PM CDT [facility] PT 16.4(H) 11.8 - 14.8 Seconds 01/24/2025 10:07 PM CDT [facility] Blood BLOOD SPECIMEN / Unknown Venipuncture / Unknown 01/24/2025 9:27 PM CDT 01/24/2025 9:37 PM CDT us Marguerite Burgess MD LAB - BLOOD ORDERABLES Final Result LABORATORY [facility] Lab [address] [facility], [address] documented in this encounter Visit Diagnoses Diagnosis 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 documented in this encounter Administered Medications Inactive Administered Medications - up to 3 most recent administrations Medication Order MAR Action Action Date Dose Rate Site hydromorphone (DILAUDID) injection 2 mg 2 mg, Intravenous, ONCE, On Wed01/24/25 at 2044, For 1 dose $Given 01/24/2025 9:24 PM CDT 2 mg hydromorphone (DILAUDID) injection 2 mg 2 mg, Intravenous, EVERY 1 HOUR PRN, severe pain, Starting on Wed01/24/25 at 2216, For 2 doses $Given 01/25/2025 12:04 AM CDT 2 mg $Given 01/24/2025 10:21 PM CDT 2 mg lactated ringers BOLUS 1,000 mL Intravenous, 1,000 mL, ONCE, at 500 mL/hr, Administer over 2 Hours, On Wed01/24/25 at 2044, For 1 dose $New Bag 01/24/2025 9:24 PM CDT 1,000 mLs 500 mL/hr lidocaine (LMX4) cream Topical, EVERY 1 HOUR PRN, pain, with VAD insertion, Starting on Wed01/24/25 at 2041, Apply at least 30 minutes prior to [...] mild pain with VAD insertion, Starting on Wed01/24/25 at 2041, MAX dose 1 mL subcutaneous OR intradermal [...] EVERY 8 HOURS SCHEDULED, First dose on Wed01/24/25 at 2200, to lock peripheral IV dormant line $Given 01/24/2025 9:27 PM CDT 3 mLs sodium chloride (PF) 0.9% PF flush 3 mL 3 mL, Intracatheter, EVERY 1 MIN PRN, line flush, other, to ensure patency or to lock dormant line, Starting on Wed01/24/25 at 2041 $Given 01/24/2025 9:27 PM CDT 3 mLs documented in this encounter Active and Recently Administered Medications Times are shown in CDT. Scheduled Medication Order 01/23/2025 01/24/2025 01/25/2025 hydromorphone (DILAUDID) injection 2 mg (COMPLETED) 2 mg, Intravenous, ONCE, On Wed01/24/25 at 2044, For 1 dose 2123 ($Given - Provider: Ifrah Zamora RN) lactated ringers BOLUS 1,000 mL (COMPLETED) Intravenous, 1,000 mL, ONCE, at 500 mL/hr, Administer over 2 Hours, On Wed01/24/25 at 2044, For 1 dose 2123 ($New Bag - Provider: Ifrah Zamora RN) 0007 (Stopped - Provider: Ifrah Zamora RN) sodium chloride (PF) 0.9% PF flush 3 mL 3 mL, Intracatheter, EVERY 8 HOURS SCHEDULED, First dose on Wed01/24/25 at 2200, to lock peripheral IV dormant line 2126 ($Given - Provider: Ifrah Zamora RN) PRN Medication Order 01/23/2025 01/24/2025 01/25/2025 hydromorphone (DILAUDID) injection 2 mg (COMPLETED) 2 mg, Intravenous, EVERY 1 HOUR PRN, severe pain, Starting on Wed01/24/25 at 2216, For 2 doses 2220 ($Given - Provider: Ifrah Zamora RN) 0004 ($Given - Provider: Ifrah Zamora RN) lidocaine (LMX4) cream Topical, EVERY 1 HOUR PRN, pain, with VAD insertion, Starting on Wed01/24/25 at 2041, Apply at least 30 minutes prior to [...] mild pain with VAD insertion, Starting on Wed01/24/25 at 2042, MAX dose 1 mL subcutaneous OR intradermal [...] or to lock dormant line, Starting on Wed01/24/25 at 2042 2127 ($Given - Provider: Ifrah Zamora, SOFIA) documented in this encounter Care Teams Elevators Inspector Relationship Specialty Start Date End Date Veronica Joseph MD [address] [place] [address] PCP - General Family Medicine 06/18/24 Roxy Mor Medical Student 04/03/24 Case Samuel MD [address] [facility] [address], [address] [place] [address] Assigned Pediatric Specialist Provider 05/18/24 Juhi Benson, SOFIA Specialty Manager [facility] Hematology & Oncology 05/29/24 Olinda Vora APRN [facility] [address] [place], [place] [phone] Assigned Cancer Care Provider 08/16/24 Stiven Stanley LP [address] [place] [address] Psychologist PSYCHOLOGIST CLINICAL 10/25/24 Star Galarza MD [facility] [address] [place] [address] Home Infusion Following Provider Infectious Diseases 11/07/24 documented as of this encounter
--- OUTSIDE RECORDS SUMMARY | 2025-01-25 19:17 | XMS_ITS | Encounter Summary ---
Author Organization [place] Address [address] [place] [address]. [place] [address] Care Team Providers Care Coach Name Role Phone RoxyElvirac Unavailable Unavailable Case Samuel MD Unavailable [phone] Juhi Benson RN Unavailable Unavailable Veronica Joseph MD Primary Care Provider [phone] Olinda Vora APRN MILITARY EXCHANGE WIRELESS MANAGER Unavailable [phone] Stiven Stanley Unavailable Star Galarza MD Unavailable [phone] Reason for Visit * Reason Comments Sickle Cell Pain Crisis Encounter Details Date Type Department Care Team ([facility] st Contact Info) Description 01/25/2025 7:17 PM CDT - 01/25/2025 10:32 PM CDT Emergency [facility] Emergency Department [address] [place] [id number] Marguerite Burgess MD [address] [place] [phone] Sickle cell pain crisis (H) (Primary Dx) [...] in an overnight chcf, or couch-surfing.) Yes 11/09/2024 Are you worried [...] on file Legal 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 Gender Identity Not on file Sexual Orientation Not on file documented as of this encounter Last Filed Vital Signs Vital Sign Reading Time Taken Comments Blood Pressure 115/59 01/25/2025 10:28 PM CDT Pulse 95 01/25/2025 10:28 PM CDT Temperature 36.8 C (98.2 F) 01/25/2025 10:28 PM CDT Respiratory Rate 16 01/25/2025 10:28 PM CDT Oxygen Saturation 99% 01/25/2025 10:28 PM CDT Inhaled Oxygen Concentration - - Weight - - Height - - Body Mass Index - - documented in this encounter Discharge Instructions * Discharge Instructions* Marguerite Burgess MD - 01/25/2025 10:30 PM CDT Closely for any new or worsening symptoms or any concerns. Immediately return to the nearest Emergency Department if you notice any of these or any types of changes. Follow-up closely with your Primary care and Hematology teams. Please call them in the morning to discuss your ED visit and arrange appropriate follow-up. Opioid Medication Information You have been given an opioid (narcotic) pain medicine and/or have received a pain medicine while here in the Emergency Department. These medicines can make you drowsy or impaired. You must not drive, operate dangerous equipment, or engage in any other dangerous activities while taking these medications. If you drive while taking these medications, you could be arrested for DUI, or driving under the influence. Do not drink any alcohol while you are taking these medications. Opioid pain medications can cause addiction. If you have a history of chemical dependency of any type, you are at a higher risk of becoming addicted to pain medications. Only take these prescribed medications to treat your pain when all other options have been tried. Take it for as short a time andas few doses as possible. Store your pain pills in a secure place, as they are frequently stolen and provide a dangerous opportunity for children or visitors in your house to start abusing these powerful medications. We will not replace any lost or stolen medicine. As soon as your pain is better, you should flush all your remaining medication. Many prescription pain medications contain Tylenol?? (acetaminophen), including Vicodin??, Tylenol #3??, Ridgeway??, Lortab??, and Percocet??. You should not take any extra pills of Tylenol?? if you areusing these prescription medications or you can get very sick. Do not ever take more than 4000 mg of acetaminophen in any 24 hour period. All opioids tend to cause constipation. Drink plenty of water and eat foods that have a lot of fiber, such as fruits, vegetables, prune juice, apple juice and high fiber cereal. Take a laxative if you don???t move your bowels at least every other day. Miralax??, Milk of Magnesia, Colace??, or Senna?? can be used to keep you regular. * Attachments The following attachments cannot be sent through Care Everywhere. * Sickle Cell Crisis (Fijian) * Sickle Cell Disease (Fijian) documented in this encounter Medications at Time [...] 05/01/2024 naloxone (NARCAN) 4 MG/0.1ML nasal spray [place] 1 spray (4 mg) into one nostril [...] as of this encounter Consult Notes * Elena Becerril RN - 01/25/2025 8:02 PM CDTAssociated Order(s): CONSULT FOR INPATIENT VASCULAR ACCESS CARE Consult received for Vascular Access Team. See LDA for details. For additional needs place Consultfor Inpatient Vascular Access Care [id number] order in [facility]. documented in this encounter ED Notes * Shauna Pardo RN - 01/25/2025 7:17 PM CDT Bed: [facility] Expected date: Expected time: Means of arrival: Comments: H1 * Fannie Marcos RN - 01/25/2025 7:16 PM CDT Sickle cell pain crisis pain 12/03 * Marguerite Burgess MD - 01/25/2025 7:10 PM CDT History No chief complaint on file. KARL [...] her of prior sickle cell pain crises. PRIOR HISTORY REVIEW: This is patients second emergency department visit this month (has been seen daily so far). Most recently seen yesterday, given her emergency department care plan pain meds and requested discharge upon improvement of symptoms. CURRENT PRESENTATION: Presents now again today with recurrence of symptoms similar to previous (back, arm, and legs). No pain elsewhere. No chest pain or breathing symptoms. No trauma or falls. No fevers. No other new symptoms or concerns reported at this time. Medically relevant ROS completed w/o additional findings. Past Medical [...] Currently Drug use: Never REVIEW OF SYSTEMS Medically relevant review of systems was performed with pertinent positives and negatives noted in the HPI, and all other systems negative. Physical Exam Physical [...] crises. Clinically, patient appears nontoxic, NAD. Vitals grossly WNL. Otherwise on examination, no acute findings. Ddx includes, but not limited to, current pain in the setting of her known sickle cell, vaso-occlusive crisis, infection (though no other symptoms for such), no history for traumas or falls, low to be less likely primary autoimmune or other MSK issue, especially as given completely consistent with previous. No symptoms for acute chest syndrome. PLAN: - Laboratory studies, pain management according to ED care plan. - Dispo pending ED Course RESULTS: Labs: - Hemoglobin near previous, reticulocyte still in the 11.37%, absolute 0.2899 INTERVENTIONS: - IV fluid, IV Dilaudid according to ED care plan RE-EVALUATION: - The patient's symptoms were much improved and patient requested discharge. - Pt [...] pain in the setting of sickle cell disease DISPOSITION: - Discharge to home FOLLOW-UP: - Hematology/PCP OTHER RECOMMENDATIONS: - Conservative symptom management, strict return instructions Marguerite Burgess MD 01/25/2025 [facility] EMERGENCY DEPARTMENT Marguerite Burgess MD 01/31/25 [id number] documented in this encounter Plan of Treatment Upcoming Encounters Date Type Department Care Team (Late st Contact Info) Description 02/15/2025 10:30 AM CDT Lab [facility] [address] [address] Olinda Vora APRN MILITARY EXCHANGE WIRELESS MANAGER [address] [place] [address] 02/15/2025 11:00 AM CDT Oncology Visit [facility] [address] [address] Olinda Vora APRN MILITARY EXCHANGE WIRELESS MANAGER [address] [place] [address] 04/09/2025 3:00 PM TILE SHADER Lab [facility] [address] [place] [address] Case Samuel MD [address] [facility] [address] [place], [place] [address] 04/09/2025 3:30 PM TILE SHADER Oncology Visit [facility] [address] [place] [address] Case Samuel MD [address] [facility] [address], [address] [place], [place] [id number] documented as of this encounter Goals Goal [...] Diagnosis Comments RBC AND PLATELET MORPHOLOGY STAT 01/25/2025 7:40 PM CDT CBC WITH PLATELETS AND DIFFERENTIAL STAT 01/25/2025 7:40 PM CDT CBC WITH PLATELETS AND DIFFERENTIAL (LIMITED OCCURRENCES) STAT 01/25/2025 7:40 PM CDT COMPREHENSIVE METABOLIC PANEL (LIMITED OCCURRENCES) STAT 01/25/2025 7:40 PM CDT RETICULOCYTE COUNT STAT 01/25/2025 7: 40 PM CDT INR STAT 01/25/2025 7:40 PM CDT HCG QUALITATIVE STAT 01/25/2025 7:40 PM CDT documented in this encounter Results * (ABNORMAL) RBC and Platelet Morphology (01/25/2025 7:40 PM CDT) RBC Morphology Confirmed RBC Indices 01/25/2025 8:28 PM CDT [facility] Platelet Assessment Automated Count Confirmed. Platelet morphology is normal. Automated Count Confirmed. Platelet morphology is normal. 01/25/2025 8:28 PM CDT [facility] Polychromasia Slight(A) None Seen 01/25/2025 8:28 PM CDT [facility] Target Cells Slight(A) None Seen 01/25/2025 8:28 PM CDT [facility] Blood BLOOD SPECIMEN / Unknown Venipuncture / Unknown 01/25/2025 7:40 PM CDT 01/25/2025 7:52 PM CDT us Marguerite Burgess MD LAB - BLOOD ORDERABLES Final Result [facility] [place] [facility] [address] [facility], [address] [place] [address] * (ABNORMAL) CBC with platelets and differential (01/25/2025 7:40 PM CDT) WBC Count 10.83 4.00 - 11.00 10e3/uL 01/25/2025 8:29 PM CDT [facility] RBC Count 2.55(L) 3.80 - 5.20 10e6/uL 01/25/2025 8:29 PM CDT [facility] Hemoglobin 8.5(L) 11.7 - 15.7 g/dL 01/25/2025 8:29 PM CDT [facility] Hematocrit 25.2(L) 35.0 - 47.0 % 01/25/2025 8:29 PM CDT [facility] MCV 98.8 78.0 - 100.0 fL 01/25/2025 8:29 PM CDT [facility] MCH 33.3(H) 26.5 - 33.0 pg 01/25/2025 8:29 PM CDT [facility] MCHC 33.7 31.5 - 36.5 g/dL 01/25/2025 8:29 PM CDT [facility] RDW 17.5(H) 10.0 - 15.0 % 01/25/2025 8:29 PM CDT [facility] Platelet Count 509(H) 150 - 450 10e3/uL 01/25/2025 8:29 PM CDT [facility] % Neutrophils 59.5 % 01/25/2025 8:29 PM CDT [facility] % Lymphocytes 26.9 % 01/25/2025 8:29 PM CDT [facility] % Monocytes 11.7 % 01/25/2025 8:29 PM CDT [facility] % Eosinophils 0.5 % 01/25/2025 8:29 PM CDT [facility] % Basophils 0.7 % 01/25/2025 8:29 PM CDT [facility] % Immature Granulocytes 0.7 % 01/25/2025 8:29 PM CDT [facility] NRBCs per 100 WBC 0.9 <1.0 /100 025 8:29 PM CDT [facility] Absolute Neutrophils 6.44 1.60 - 8.30 10e3/uL 01/25/2025 8:29 PM CDT [facility] Absolute Lymphocytes 2.91 0.80 - 5.30 10e3/uL 01/25/2025 8:29 PM CDT [facility] Absolute Monocytes 1.27 0.00 - 1.30 10e3/uL 01/25/2025 8:29 PM CDT [facility] Absolute Eosinophils 0.05 0.00 - 0.70 10e3/uL 01/25/2025 8:29 PM CDT [facility] Absolute Basophils 0.08 0.00 - 0.20 10e3/uL 01/25/2025 8:29 PM CDT [facility] Absolute Immature Granulocytes 0.08 <=0.40 10e3/uL 01/25/2025 8:29 PM CDT [facility] Absolute NRBCs 0.10 10e3/uL 01/25/2025 8:29 PM CDT [facility] Blood BLOOD SPECIMEN / Unknown Venipuncture / Unknown 01/25/2025 7:40 PM CDT 01/25/2025 7:52 PM CDT Marguerite Burgess MD LAB - BLOOD ORDERABLES Final Result Performing Organization Address City/[facility] Co de Phone Number [facility] [place] [facility] [address] [facility], [address] * HCG qualitative Blood (01/25/2025 7:40 PM CDT) [facility] hCG Serum Qualitative Negative Negative JARET 01/25/2025 8:10 PM CDT [facility] Comment:This test is for scr eening purposes. Results should be interpreted along with the clinical picture. Confirmation testing is available if warranted by ordering [id number], HCG Quantitative . Blood BLOOD SPECIMEN / Unknown Venipuncture / Unknown 01/25/2025 7:40 PM CDT 01/25/2025 7:50 PM CDT Marguerite Burgess MD LAB - BLOOD ORDERABLES Final Result Performing Organization Address [facility] de Phone Number [facility] [place] [facility] [address] [facility], [address] [id number] [place] [address] * (ABNORMAL) Reticulocyte count (01/25/2025 7:40 PM CDT) Pathologist [facility] % Reticulocyte 11.37(H) 0.50 - 2.00 % 01/25/2025 8:00 PM CDT [facility] Absolute Reticulocyte 0.2899(H) 0.0250 - 0.0950 10e6/uL 01/25/2025 8:00 PM CDT [facility] Blood BLOOD SPECIMEN / Unknown Venipuncture / Unknown 01/25/2025 7:40 PM CDT 01/25/2025 7:52 PM CDT us Marguerite Burgess MD LAB - BLOOD ORDERABLES Final Result [facility] [place] [facility] [address] [facility] [address], [address] [place] [address], [facility] * (ABNORMAL) Comprehensive Metabolic Panel (Limited Occurrences) (01/25/2025 7:40 PM CDT) Pathologist [facility] Sodium 140 135 - 145 mmol/L 01/25/2025 8:16 PM CDT [facility] Potassium 3.8 3.4 - 5.3 mmol/L 01/25/2025 8:16 PM CDT [facility] Carbon Dioxide (CO2) 22 22 - 29 mmol/L 01/25/2025 8:16 PM CDT [facility] Anion Gap 12 7 - 15 mmol/L 01/25/2025 8:16 PM CDT [facility] Urea Nitrogen 9.6 6.0 - 20.0 mg/dL 01/25/2025 8:16 PM CDT [facility] Creatinine 0.68 0.51 - 0.95 mg/dL 01/25/2025 8:16 PM CDT [facility] GFR Estimate >90 >60 mL/min/1.7 3m2 01/25/2025 8:16 PM CDT [facility] Comment:eGFR calculated us2020 CKD-EPI equation. Calcium 9.5 8.8 - 10.4 mg/dL 01/25/2025 8:16 PM CDT [facility] Chloride 106 98 - 107 mmol/L 01/25/2025 8:16 PM CDT [facility] Glucose 86 70 - 99 mg/dL 01/25/2025 8:16 PM CDT [facility] Alkaline Phosphatase 78 40 - 150 U/L 01/25/2025 8:16 PM CDT [facility] AST 39 0 - 45 U/L 01/25/2025 8:16 PM CDT [facility] ALT 23 0 - 50 U/L 01/25/2025 8:16 PM CDT [facility] Protein Total 8.4(H) 6.4 - 8.3 g/dL 01/25/2025 8:16 PM CDT [facility] Albumin 4.6 3.5 - 5.2 g/dL 01/25/2025 8:16 PM CDT [facility] Bilirubin Total 1.7(H) <=1.2 mg/dL 01/25/2025 8:16 PM CDT [facility] Blood BLOOD SPECIMEN / Unknown Venipuncture / Unknown 01/25/2025 7:40 PM CDT 01/25/2025 7:50 PM CDT Marguerite Burgess MD LAB - BLOOD ORDERABLES Final Result [facility] [place] [facility] [address] [facility], [address] * (ABNORMAL) INR (01/25/2025 7:40 PM CDT) INR 1.34(H) 0.85 - 1.15 01/25/2025 8:10 PM CDT [facility] PT 16.8(H) 11.8 - 14.8 Seconds 01/25/2025 8:10 PM CDT [facility] Blood BLOOD SPECIMEN / Unknown Venipuncture / Unknown 01/25/2025 7:40 PM CDT 01/25/2025 7:52 PM CDT Marguerite Burgess MD LAB - BLOOD ORDERABLES Final Result Performing Organization Address City/[facility]/ZIP Co de Phone Number [facility] [place] [facility] [address] 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 documented in this encounter Administered Medications Inactive Administered Medications - up to 3 most recent administrations Medication Order MAR Action Action Date Dose Rate Site hydromorphone (DILAUDID) injection 2 mg 2 mg, Intravenous, EVERY 1 HOUR PRN, severe pain, Starting on Citlali 01/25/25 at 1903, For 3 doses $Given 01/25/2025 10:11 PM CDT 2 mg $Given 01/25/2025 9:03 PM CDT 2 mg $Given 01/25/2025 7:51 PM CDT 2 mg lactated ringers BOLUS 1,000 mL Intravenous, 1,000 mL, ONCE, at 500 mL/hr, Administer over 2 Hours, On Citlali 01/25/25 at 1905, For 1 dose $New Bag 01/25/2025 7:51 PM CDT 1,000 mLs 500 mL/hr documented in this encounter Active and Recently Administered Medications Times are shown in CDT. Scheduled Medication Order 01/23/2025 01/24/2025 01/25/2025 lactated ringers BOLUS 1,000 mL (COMPLETED) Intravenous, 1,000 mL, ONCE, at 500 mL/hr, Administer over 2 Hours, On Citlali 01/25/25 at 1905, For 1 dose 1950 ($New Bag - Pro vider: Danica Mccloud, SOFIA)[id number] (Stopped - Provider: Danica Mccloud, SOFIA) PRN Medication Order 01/23/2025 01/24/2025 01/25/2025 hydromorphone (DILAUDID) injection 2 mg (COMPLETED) 2 mg, Intravenous, EVERY 1 HOUR PRN, severe pain, Starting on Citlali 01/25/25 at 1903, For 3 doses 1950 ($Given - Provi nas: Danica Mccloud RN)2102 ($Given - Provider: Yeyo David RN)221 ($Given - Provider: Danica Mccloud, SOFIA) documented in this encounter Care Teams Coach Relationship Specialty Start Date End Date Veronica Joseph MD [address] [place] [address] PCP - General Family Medicine 06/18/24 Mor Ramsey Medical Student 04/03/24 Case Samuel MD [address] [place] [address] [address] [place] [address] Assigned Pediatric Specialist Provider 05/18/24 Juhi Benson, RN Specialty Relief Pilot Hematology & Oncology 05/29/24 Olinda Vora APRN MILITARY EXCHANGE WIRELESS MANAGER [address] [place] [address] Assigned Cancer Care Provider 08/16/24 Stiven Stanley LP [address] [facility] [place] [place] [address] Psychologist PSYCHOLOGIST CLINICAL 10/25/24 Star Galarza MD [facility] [address] [facility] [address] [place] [address] Home Infusion Following Provider Infectious Diseases 11/07/24 documented as of this encounter
--- OUTSIDE RECORDS SUMMARY | 2025-01-26 18:12 | XMS_ITS | Encounter Summary ---
Author Organization [facility] Address [address] [place] [address]. [place] [address] Care Team Providers Care Industrial X Ray Operator Name Role Phone RoxyElvirac Unavailable Unavailable Case Samuel MD Unavailable [phone] Juhi Benson RN Unavailable Unavailable Veronica Joseph MD Primary Care Provider [phone] Olinda Vora APRN ROLLING CHAIR PUSHER Unavailable [phone] Stiven Stanley Unavailable Star Galarza MD Unavailable [phone] Reason for Visit * Reason Comments Chest Pain Sickle Cell Pain Crisis Encounter Details Date Type Department Care Team (Late st Contact Info) Description 01/26/2025 6:12 PM CDT - 01/26/2025 9:14 PM CDT Emergency [facility] Emergency Department [address] [place] [phone] Abdelrahman Goddard MD [address] [place] [address] Sickle cell pain crisis (H) (Primary Dx) [...] file Legal Sex Female 8:25 AM HAND COREMAKER Gender Identity Not on file Sexual Orientation Not on file documented as of this encounter Last Filed Vital Signs Vital Sign Reading Time Taken Comments Blood Pressure 117/61 01/26/2025 9:00 PM CDT Pulse 85 01/26/2025 9:00 PM CDT Temperature 37 C (98.6 F) 01/26/2025 9:00 PM CDT Respiratory Rate 16 01/26/2025 9:00 PM CDT Oxygen Saturation 100% 01/26/2025 9:00 PM CDT Inhaled Oxygen Concentration - - Weight - - Height - - Body Mass Index - - documented in this encounter Discharge Instructions * Discharge Instructions* Abdelrahman Goddard MD - 01/26/2025 9:11 PM CDT Please return to the emergency department if you develop any new or worsening symptoms Please call your primary care doctor for follow-up visit in the next 1 to 2 days * Attachments The following attachments cannot be [...] 05/01/2024 naloxone (NARCAN) 4 MG/0.1ML nasal spray [place] 1 spray (4 mg) into one nostril [...] ED Notes * Abdelrahman Goddard MD - 01/26/2025 6:17 PM CDT Verbal consent was obtained if AI documentation was used in the creation of this note. 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 The patient states that she is having typical cell pain. She does note that she is having some chest pain but states it does not feel like acute chest. Past Medical History Past Medical History: Diagnosis [...] all other systems negative. Physical Exam BP: 112/54 Pulse: 98 Temp: 98.4 ??F (36.9 ??C) Resp: 16 SpO2: 99 % Physical Exam Constitutional: General: She is not in acute distress. Appearance: Normal appearance. She is not diaphoretic. HENT: Head: Atraumatic. Mouth/Throat: Mouth: Mucous membranes are moist. Eyes: General: No scleral icterus. Conjunctiva/sclera: Conjunctivae normal. Cardiovascular: Rate and Rhythm: Normal rate. Heart sounds: Normal heart sounds. Pulmonary: Effort: No respiratory distress. Breath sounds: Normal breath sounds. No stridor. No wheezing. Abdominal: General: Abdomen is flat. Musculoskeletal: Cervical back: Neck supple. Skin: General: Skin is warm. Findings: No rash. Neurological: Mental Status: She is alert. ED Course, Procedures, & Data Procedures EKG Interpretation: Interpreted by Abdelrahman Goddard Time reviewed: 18:37 Symptoms at time of EKG: Chest pain Rhythm: normal sinus Rate: normal [place]: normal Ectopy: none Conduction: normal ST Segments/ T Waves: No ST-T wave changes Q Waves: none Comparison to prior: Similar to prior Clinical Impression: normal EKG Medications - No data to display Critical [...] for details) strong consideration of a test (blood work, chest x-ray) that was ultimately deferred The patient's management necessitated high risk (a parenteral controlled substance). Assessment & Plan Patient presented for sickle cell pain crisis Patient reports that her pain is consistent with her prior crisis She reports that she did have chest discomfort, she does not feel like this is consistent with acute chest, and does not want further workup, including blood work or chest x-ray After patient went through her pain plan, she reports that she would like to discharge home I did attempt to page pain service here, she has been presenting multiple times to the emergency room lately, encouraged patient to all follow-up with her primary care doctor in the next 1 to 2 days for reassessment, as again she appears to be presenting mutliple times per week to the emergency department I gave her strict return precaution to come back to the emergency room for new or worsening symptoms As her pain is consistent with sickle cell, her vital signs are stable, physical exam is unremarkable, although considered further workup, will defer at this time per my discussion with patient, she furthermore does not want any additional workup I have reviewed the nursing notes. I have reviewed the findings, diagnosis, plan and need for follow up with the patient. New Prescriptions No medications on file Final diagnoses: None Luisa Long, am serving as a trained medical transcription editor to document services personally performed by Abdelrahman Goddard MD, based on the provider's statements to me. Abdelrahman Long MD, was physically present and have reviewed and verified the accuracy of this note documented by Luisa Lugo. Abdelrahman Goddard MD [facility] EMERGENCY [facility]PARTMENT 01/26/2025 Abdelrahman Goddard MD 01/26/252112 * Lali Haines RN - 01/26/2025 6:11 PM CDT Arrives ambulatory with left sided chest pain and sickle cell pain. States it started this AM. Triage Assessment (Adult) Row Name 01/26/25 1811 Triage Assessment Airway WDL WDL Respiratory WDL Respiratory WDL WDL Skin Circulation/Temperature WDL Skin Circulation/Temperature WDL WDL Cardiac WDL Cardiac WDL X;chest pain Chest Pain Assessment Chest Pain Location anterior chest, left Chest Pain Intervention 12-lead ECG obtained Peripheral/Neurovascular WDL Peripheral Neurovascular WDL WDL Cognitive/Neuro/Behavioral WDL Cognitive/Neuro/Behavioral WDL WDL documented in this encounter Plan of Treatment Upcoming Encounters Date Type Department Care Team (Late st Contact Info) Description 02/15/2025 10:30 AM CDT Lab [facility] [address] [phone] Olinda Vora APRN ROLLING CHAIR PUSHER [address] [place] [address] 02/15/2025 11:00 AM CDT Oncology Visit [facility] [address] [phone] Olinda Vora APRN ROLLING CHAIR PUSHER [address] [place] [address] 04/09/2025 3:00 PM HAND COREMAKER Lab [facility] [address] [place] [phone] Case Samuel MD [address] [facility] [address], [address] [place], [place] [phone] 04/09/2025 3:30 PM HAND COREMAKER Oncology Visit [facility] [address] [place] [address] Case Samuel MD [address] [facility] [address], [address] [place], [place] [phone] documented as of this encounter Goals Goal [...] Diagnosis Comments EKG 12-LEAD, TRACING ONLY STAT 01/26/2025 6:37 PM CDT documented in this encounter Results * EKG 12 lead (01/26/2025 6:37 PM CDT) Systolic Blood Pressure mmHg RADIOLOGY RESULTS Diastolic Blood Pressure mmHg RADIOLOGY RESULTS Ventricular Rate 90 BPM RAD IOLOGY RESULTS Atrial Rate 90 BPM RADIOLOG Y RESULTS NH Interval 150 ms RADIOLOG Y RESULTS QRS Duration 82 ms RADIOLO GY RESULTS QT 358 ms RADIOLOGY RESULTS QTc 437 ms RADIOLOGY RESULTS P [place] 7 degrees RADIOLOGY RESULTS R AXIS 46 degrees RADIOLOGY RESULTS T [place] 11 degrees RADIOLOGY RESULTS Interpretation ECG Unconfirmed report - interpretation of this ECG is computer generated - see medical record for final interpretation Sinus rhythm Normal ECG Confirmed by - EMERGENCY ROOM, PHYSICIAN ([id number]), deputy editor in chief Nivia Willson ([id number]) on 01/27/2025 6:43:18 AM RADIOLOGY RESULTS 01/26/2025 6:37 PM CDT 01/27/2025 6:43 AM CDT Abdelrahman Goddard MD ECG ORDERABLES Edited Result - Final RADIOLOGY RESULTS documented in this encounter Visit Diagnoses Diagnosis 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 documented in this encounter Administered Medications Inactive Administered Medications - up to 3 most recent administrations Medication Order MAR Action Action Date Dose Rate Site hydromorphone (DILAUDID) injection 2 mg 2 mg, Intravenous, ONCE, On Wed01/26/25 at 1825, For 1 dose $Given 01/26/2025 7:01 PM CDT 2 mg hydromorphone (DILAUDID) injection 2 mg 2 mg, Intravenous, ONCE, On Wed01/26/25 at 2000, For 1 dose $Given 01/26/2025 8:02 PM CDT 2 mg hydromorphone (DILAUDID) injection 2 mg 2 mg, Intravenous, ONCE, On Wed01/26/25 at 2100, For 1 dose $Given 01/26/2025 9:06 PM CDT 2 mg lactated ringers BOLUS 1,000 mL Intravenous, 1,000 mL, ONCE, at 1,000 mL/hr, Administer over 1 Hours, On Wed01/26/25 at 1825, For 1 dose $New Bag 01/26/2025 7:01 PM CDT 1,000 mLs 1000 mL/hr documented in this encounter Active and Recently Administered Medications Times are shown in CDT. Scheduled Medication Order 01/24/2025 01/25/2025 01/26/2025 hydromorphone (DILAUDID) injection 2 mg (COMPLETED) 2 mg, Intravenous, ONCE, On Wed01/26/25 at 1825, For 1 dose 190 ($Given - Provi nas: Clive Patel RN) hydromorphone (DILAUDID) injection 2 mg (COMPLETED) 2 mg, Intravenous, ONCE, On Wed01/26/25 at 2000, For 1 dose 2001 ($Given - Provi nas: Clive Patel RN) hydromorphone (DILAUDID) injection 2 mg (COMPLETED) 2 mg, Intravenous, ONCE, On Wed01/26/25 at 2100, For 1 dose 210 ($Given - Provi nas: Clive Patel RN) lactated ringers BOLUS 1,000 mL (COMPLETED) Intravenous, 1,000 mL, ONCE, at 1,000 mL/hr, Administer over 1 Hours, On Wed01/26/25 at 1825, For 1 dose 190 ($New Bag - Pro vider: Clive Patel RN)2013 (Stopped - Provider: Clive Patel RN) ondansetron (ZOFRAN) injection 4 mg 4 mg, Intravenous, ONCE, Administer over 2-5 Minutes, On Wed01/26/25 at 1825, For 1 dose 1825 (Canceled Entry - Provider: Orders Generic Provider - Comment: Automatically canceled at discontinue of medication order) documented in this encounter Care Teams Industrial X Ray Operator Relationship Specialty Start Date End Date Veronica Joseph MD [address] [place] [address] PCP - General Family Medicine 06/18/24 Mor Rasmey Medical Student 04/03/24 Case Samuel MD [address] [place] [address] [address], [address] [place], [place] [phone] Assigned Pediatric Specialist Provider 05/18/24 Juhi Benson, SOFIA Specialty Planishing Hammer Operator Hematology & Oncology 05/29/24 Olinda Vora APRN ROLLING CHAIR PUSHER [address] [place] [id number] Assigned Cancer Care Provider 08/16/24 Stiven Stanley LP [address] [facility] [place] [address] Psychologist PSYCHOLOGIST CLINICAL 10/25/24 Star Galarza MD [facility]. [address] [place] [address] Home Infusion Following Provider Infectious Diseases 11/07/24 documented as of this encounter
--- OUTSIDE RECORDS SUMMARY | 2025-01-27 11:20 | XMS_ITS | Encounter Summary ---
Author Organization [facility] Address [address] [place] [address]. [place] [address] Care Team Providers Care Meteorological Aide Name Role Phone Roxy Mor Unavailable Unavailable Case Samuel MD Unavailable [phone] Juhi Benson RN Unavailable Unavailable Veronica Joseph MD Primary Care Provider [phone] Olinda Vora APRN MACHINE III COREMAKER Unavailable [phone] Stiven Stanley Unavailable Star Galarza MD Unavailable [phone] Reason for Visit * Reason Comments Sickle Cell Pain Crisis * Auth/Cert Specialty Diagnoses / Procedures Referred By Shahid pendleton Referred To Contact EMERGENCY MEDICINE Diagnoses Sickle cell disease with crisis (H) Maldonado Gerard MD [address] [facility] Emergency Department [address] [place] [address] Phone: tel: fax: [facility] Emergency Department [address] [place] [address] Phone: tel: Referral ID Status Reason Start Date Expiration Date Visits Re quested Visits Authorized [id number] 1 1 Encounter Details Date Type Department Care Team ([facility] Contact Info) Description 01/27/2025 11:20 AM CDT - 01/27/2025 2:03 PM CDT Emergency [facility] Emergency Department [address] [place] [address] Leonardo Schroeder MD [address] [place] [id number] Sickle cell disease with crisis (H) (Primary [...] on file Legal Sex Female 8:25 AM COMPOUNDING AND FINISHING SUPERVISOR Gender Identity Not on file Sexual Orientation Not on file documented as of this encounter Last Filed Vital Signs Vital Sign Reading Time Taken Comments Blood Pressure 122/81 01/27/2025 1:57 PM CDT Pulse 81 01/27/2025 1:57 PM CDT Temperature 36.8 C (98.3 F) 01/27/2025 1:57 PM CDT Respiratory Rate 16 01/27/2025 1:57 PM CDT Oxygen Saturation 98% 01/27/2025 1:57 PM CDT Inhaled Oxygen Concentration - - Weight 46.7 kg (103 lb) 01/27/2025 11:19 AM CDT Height 152.4 cm (5') 01/27/2025 11:19 AM CDT Body Mass Index 20.12 01/27/2025 11:19 AM CDT documented in this encounter Discharge [...] 05/01/2024 naloxone (NARCAN) 4 MG/0.1ML nasal spray [place] 1 spray (4 mg) into one nostril [...] as of this encounter Consult Notes * Lexi Cota - 01/27/2025 11:56 AM CDTAssociated Order(s): CONSULT FOR INPATIENT VASCULAR ACCESS CARE; CONSULT FOR INPATIENT VASCULAR ACCESS CARE; CONSULT FOR INPATIENT VASCULAR ACCESS CARE Summary: 22g PIV LFA with ultrasound Consult received for Vascular Access Team. See LDA for details. For additional needs place Consultfor Inpatient Vascular Access Care [id number] order in [facility]. documented in this encounter ED Notes * Leonardo Schroeder MD - 01/27/2025 11:27 AM CDT Images from the original note were not included. [facility] ([facility]) 01/27/25 ED PROVIDER NOTE History Chief Complaint Patient presents with Sickle Cell Pain Crisis HPI Gianna N Edgar is a 29 year old female with [...] ED with sickle cell pain crisis. Patient has been seen by me 5 days ago and has since come to the ED every day for pain meds. Patient says that she is still in the process of moving and this is triggering her pain. She says the pain meds at home are not working. She notes she has a follow-up with her beading sawyer on Wednesday. Denies any chest pain, shortness of breath, cough, fever, nausea, vomiting, abdominal pain. Physical Exam BP: 100/67 Pulse: 99 Temp: 97.8 ??F (36.6 ??C) Resp: 14 Height: 152.4 cm (5') Weight: 46.7 kg (103 lb) SpO2: 100 % Physical Exam Vitals and nursing note reviewed. Constitutional: Appearance: Normal appearance. HENT: Mouth/Throat: Mouth: Mucous membranes are moist. Cardiovascular: Rate and Rhythm: Normal rate and regular rhythm. Abdominal: Palpations: Abdomen is soft. Tenderness: There is no abdominal tenderness. Neurological: General: No focal deficit present. Mental Status: She is alert and oriented to person, place, and time. ED Course as of 01/27/25 1343 Sat Jan 27, 2025 1343 Pt with mostly improved pain after first dose, requesting 2nd dose and to be discharged as shehas a prior engagement at 3pm. Safe for discharge. Procedures Medications hydromorphone (DILAUDID) injection 2 mg (has no administration in time range) hydromorphone (DILAUDID) injection 2 mg (2 mg Intravenous $Given 01/27/25 1151) lactated ringers BOLUS 1,000 mL (1,000 mLs Intravenous $New Bag 01/27/25 1201) Critical care was not performed. Medical Decision Making The patient's presentation was of low complexity (a stable chronic illness). The patient's evaluation involved: review of external note(s) from 2 sources (see separate area of note for details) The patient's management necessitated moderate risk ( ). Assessment & Plan -year-old female with sickle cell pain, will follow treatment plan and reassess. I have reviewed the nursing notes. I have reviewed the findings, diagnosis, plan and need for follow up with the patient. New Prescriptions No medications on file Final diagnoses: Sickle cell disease with crisis (H) Leonardo Schroeder [facility] EMERGENCY DEPARTMENT 01/27/2025 Leonardo Schroeder MD 01/27/25 1343 documented in this encounter Plan of Treatment Upcoming Encounters Date Type Department Care Team (Late st Contact Info) Description 02/15/2025 10:30 AM CDT Lab [facility] Cancer [address] [phone] Olinda Vora APRN MACHINE III COREMAKER [address] [place] [phone] 02/15/2025 11:00 AM CDT Oncology Visit [address] [phone] Olinda Vora APRN MACHINE III COREMAKER [address] [place] [address] 04/09/2025 3:00 PM COMPOUNDING AND FINISHING SUPERVISOR Lab [facility] Cancer [address] [phone] Case Samuel MD [address] [place] [address] [address], [address] [place] [address] 04/09/2025 3:30 PM COMPOUNDING AND FINISHING SUPERVISOR Oncology Visit [facility] Clinic [address] [place] [address] Case Samuel MD [address] [facility] [address], [address] [place], [place] [phone] documented as of this encounter Goals Goal [...] 2 mg 2 mg, Intravenous, ONCE, On 01/27/25 at 1125, For 1 dose $Given 01/27/2025 11:58 AM CDT 2 mg hydromorphone (DILAUDID) injection 2 mg 2 mg, Intravenous, ONCE, On 01/27/25 at 1325, For 1 dose $Given 01/27/2025 1:47 PM CDT 2 mg lactated ringers BOLUS 1,000 mL Intravenous, 1,000 mL, ONCE, at 1,000 mL/hr, Administer over 1 Hours, On 01/27/25 at 1125, For 1 dose $New Bag 01/27/2025 12:01 PM CDT 1,000 mLs 1000 mL/hr documented in this encounter Active and Recently Administered Medications Times are shown in CDT. Scheduled Medication Order 01/25/2025 01/26/2025 01/27/2025 hydromorphone (DILAUDID) injection 2 mg (COMPLETED) 2 mg, Intravenous, ONCE, On 01/27/25 at 1125, For 1 dose 1158 ($Given - Provi nas: Dave Burciaga, SOFIA) hydromorphone (DILAUDID) injection 2 mg (COMPLETED) 2 mg, Intravenous, ONCE, On 01/27/25 at 1325, For 1 dose 1347 ($Given - Provi nas: Dave Burciaga RN) lactated ringers BOLUS 1,000 mL (COMPLETED) Intravenous, 1,000 mL, ONCE, at 1,000 mL/hr, Administer over 1 Hours, On 01/27/25 at 1125, For 1 dose 1201 ($New Bag - Pro vider: Dave Burciaga RN)[id number] (Stopped - Provider: Dave Burciaga RN) documented in this encounter Care Teams Meteorological Aide Relationship Specialty Start Date End Date Veronica Joseph MD [address] [place] [address] PCP - General Family Medicine 06/18/24 Mor Ramsey Medical Student 04/03/24 Case Samuel MD [address] [facility] [address], [address] [place], [place] [address] Assigned Pediatric Specialist Provider 05/18/24 Juhi Benson, SOFIA Specialty Multi [place] Assessor Hematology & Oncology 05/29/24 Olinda Vora APRN MACHINE III COREMAKER [address] [place] [address] Assigned Cancer Care Provider 08/16/24 Stiven Stanley LP [address] [place] [address] Psychologist PSYCHOLOGIST CLINICAL 10/25/[address] [facility] [address] [place], [place] [address] Home Infusion Following Provider Infectious Diseases 11/07/24 documented as of this encounter
--- OUTSIDE RECORDS SUMMARY | 2025-01-27 21:52 | XMS_ITS | Encounter Summary ---
Author Organization [facility] Address [address] [place] [address] Care Team Providers Care Shirt Ironer Supervisor Name Role Phone None Reported, Pcp Primary Care Provider Unavail able Reason for Visit * Reason Comments Sickle Cell Pain Crisis Started 2 days a go, has been moving and went to a . Back and leg pain, no chest pain. Recent sepsis 3 weeks ago. Had port and PICC line removed when reticulocyte count stayed elevated. Encounter Details Date Type Department Care Team (Late st Contact Info) Description 01/27/2025 9:52 PM CDT - 01/28/2025 1:03 AM CDT Emergency [facility] [address] [place] [address] [phone] Jeffrey Valdez, JAVIER, C.N.P., M.S.N. [address] [place] [phone] Hb-SS Disease (Sickle Cell) Vaso-Occlusive Pain Crisis [...] Sign Reading Time Taken Comments Blood Pressure 121/88 01/28/2025 12:45 AM CDT Pulse 93 01/28/2025 12:55 AM CDT Temperature 37 C (98.6 F) 01/27/2025 10:00 PM CDT Respiratory Rate 16 01/27/2025 11:30 PM CDT Oxygen Saturation 99% 01/28/2025 12:55 AM CDT Inhaled Oxygen Concentration - - Weight 49.7 kg (109 lb 9.1 oz) 01/27/2025 9:54 P M CDT Height - - Body Mass Index - - documented in this encounter Discharge Instructions * Discharge Instructions* Jeffrey Valdez APRN, C.N.P., M.S.N. - 01/27/2025 10:23 PM CDT Make sure to keep appointment with your store stock help this Wednesday. Maintain proper hydration. Take your pain medication as indicated. Return to emergency department if you have fever, nausea or vomiting that you cannot control, abdominal pain, shortness of breath, chest pain, urinary problem, rectal bleeding, dizziness, vision problem, slurred speech, weakness, or worsening symptoms. * Attachments The following attachments cannot be sent through Care Everywhere. * Living With Sickle Cell Disease (Belizean) documented in this encounter Medications at Time [...] as of this encounter ED Notes * Jeffrey Valdez, JAVIER, C.N.P., M.S.N. - 01/27/2025 10:09 PM CDT The patient verbally consented to an audio recording of their visit to assist with the completion of documentation. SUBJECTIVE CHIEF COMPLAINT/REASON FOR VISIT Sickle Cell Pain Crisis (Started 2 days ago, has been moving and went to a . Back and leg pain, no chest pain. Recent sepsis 3 weeks ago. Had port and PICC line removed when reticulocyte countstayed elevated.) HISTORY OF PRESENT ILLNESS History of Present Illness Gianna Hernández is a 29 year old female with sickle cell disease who presents with a flare-up of her sickle cell crisis. She has been experiencing a flare-up of her sickle cell crisis for the past few days, leading to multiple emergency department visits at [facility]. The flare-up worsened around noon today, coinciding with a she attended. She feels a little dehydrated today. She recently had a blood infection and became septic, necessitating the removal of her ports. She is scheduled to see her store stock help on Wednesday for further evaluation. She is not currently on any antibiotics, having completed her course. She is taking Eliquis, but no other medications were mentioned. No new symptoms today beyond her usual pain associated with the flare-up. Specifically, she denies rectal bleeding, shortness of breath, chest pain, bowel pain, urinary issues, and fevers. REVIEW OF SYSTEMS Constitutional: Negative for chills and fever. Generalized body aches HENT: Negative. Eyes: Negative. Respiratory: Negative. Cardiovascular: Negative. Gastrointestinal: Negative. Genitourinary: Negative. Psychiatric/Behavioral: Negative. OBJECTIVE Initial Vitals Temperature 01/27/25 2200 37 ??C Pulse Rate 01/27/25 2200 (!) 116 Heart Rate -- Resp Rate 01/27/25 2200 18 Blood Pressure 01/27/250 109/74 SpO2 01/27/25 2200 99 % Pain Score 01/27/25 2156 9 PHYSICAL EXAMINATION Constitutional: She appears not lethargic. No distress. HENT: Head: Normocephalic. Pulmonary/Chest: Effort normal. Abdominal: There is no abdominal tenderness. Neurological: Alert and oriented to person, place, and time. Skin: Skin is normal color. She is not diaphoretic. Psychiatric: She has a normal mood and affect. Physical Exam CHEST: Lungs clear to auscultation. CARDIOVASCULAR: Tachycardic, no systolic murmur. ASSESSMENT/PLAN Medical Decision Making 29-year-old female with sickle cell disease presented with a several-day flare of her typical pain crisis, having had multiple recent ED visits and a recent history of sepsis requiring port removal. She reported no new symptoms such as chest pain, shortness of breath, fever, abdominal, urinary, or rectal complaints. Exam was notable for tachycardia and mild dehydration, with clear lungs and no acute findings on review of systems. Differential diagnosis includes, but is not limited to: - Sickle Cell Pain Crisis: Most likely etiology given her history, typical pain pattern, and absence of new symptoms. - Aplastic Crisis: Considered due to underlying sickle cell disease, but no new symptoms provided. - Splenic Sequestration Crisis: Considered in the context of sickle cell disease, but no abdominal pain or distension reported. - Sepsis: Recent history of sepsis and port removal, but currently afebrile and without systemic symptoms. - Acute Chest Syndrome: Low suspicion given absence of chest pain, shortness of breath, or fever. - Pulmonary Embolism: Considered due to tachycardia and anticoagulation, but no respiratory or chest symptoms present. In addition, she is on Eliquis. Given that she declined work up, including blood work, EKG, and chest xray, cannot completely rule out acute cause. Did discuss this with her and she understands, but she feels like her usual flare up and still does not want workup. Her pain treatment plan from store stock help at outside hospital at [facility] was reviewed. She does receive 2 mg of IV Dilaudid every hour for 3 doses in the ED. We will continuewith this treatment plan while she is here. Sickle cell disease with acute pain crisis, tachycardia, and mild dehydration - Administered pain medication as per her pain plan - Administered mild fluid therapy to address dehydration - Ensured someone was available to drive her home -She states she does have heme appointment this Wednesday. Advised to keep appointment with her store stock help this coming Wednesday. Plan: Given multiple visits to the ED in the past few days, did discuss consideration for admissionfor pain control, but she is requesting pain control only and discharge. 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 Return precaution discussed. Patient in agreement. Assessment and Plan Care is significantly affected by the following Social Determinants of Health: none. I reviewed the following external records: office records, prior outpatient radiology tests and outside ED records. Final Diagnoses: as of 01/28/251835 Hb-SS Disease (Sickle Cell) Vaso-Occlusive Pain Crisis (HCC) Jeffrey Valdez APRN, C.N.P., M.S.N. 01/28/251835 * Tootie Alaniz R.N. - 01/27/2025 9:59 PM CDT Started 2 days ago, has been moving and went to a . Back and leg pain, no chest pain. Recentsepsis 3 weeks ago. Had port and PICC line removed when reticulocyte count stayed elevated. Tootie Alaniz R.N. 01/27/25 2200 documented in this encounter Plan of Treatment Not on file documented as of this encounter Visit Diagnoses Diagnosis Hb-SS Disease (Sickle Cell) Vaso-Occlusive Pain Crisis (HCC)- Primary documented in this encounter Administered Medications Inactive Administered Medications - up to 3 most recent administrations Medication Order MAR Action Action Date Dose Rate Site diphenhydrAMINE injection 25 mg (BenadryL) 25 mg, intravenous, Once, On 01/27/25 at 2210, For 1 dose Given 01/27/2025 10:38 PM CDT 25 mg HYDROmorphone injection 2 mg (Dilaudid) 2 mg, intravenous, Every 1 hour PRN, severe pain or score 7-10 of 10, Starting on 01/27/25 at 2209, For 3 doses Given 01/28/2025 12:48 AM CDT 2 mg Given 01/27/2025 11:40 PM CDT 2 mg Given 01/27/2025 10:41 PM CDT 2 mg Lactated Ringer's bolus 1,000 mL 1,000 mL, intravenous, at 1,000 mL/hr, Administer over 1 Hours, Once, On 01/27/25 at 2210, For 1 dose New Bag 01/27/2025 10:36 PM CDT 1,000 mL 1000 mL/hr documented in this encounter Active and Recently Administered Medications Times are shown in CDT. Scheduled Medication Order 01/26/2025 01/27/2025 01/28/2025 diphenhydrAMINE injection 25 mg (BenadryL) (COMPLETED) 25 mg, intravenous, Once, On 01/27/25 at 2210, For 1 dose 2237 (Given - Provider: Tres Alaniz RPatti) Lactated Ringer's bolus 1,000 mL (COMPLETED) 1,000 mL, intravenous, at 1,000 mL/hr, Administer over 1 Hours, Once, On 01/27/25 at 2210, For 1 dose 2235 (New Bag - Provider: Armando Alaniz RSherylNSheryl)2344 (Stopped - Provider: Tootie Alaniz R.N.) PRN Medication Order 01/26/2025 01/27/2025 01/28/2025 HYDROmorphone injection 2 mg (Dilaudid) (COMPLETED) 2 mg, intravenous, Every 1 hour PRN, severe pain or score 7-10 of 10, Starting on 01/27/25 at 2209, For 3 doses 2241 (Given - Provider: Tootie Alaniz R.N.)2340 (Given - Provider: Tootie Alaniz R.N.) 0048 (Given - Provider: Tootie Alaniz R.N.) documented in this encounter Care Teams Shirt Ironer Supervisor Relationship Specialty Start Date End Date None Reported, Pcp PCP - General Family Medicine 07/22/24 documented as of this encounter
--- OUTSIDE RECORDS SUMMARY | 2025-01-28 12:20 | XMS_ITS | Encounter Summary ---
Author Organization [facility] Address [address] [place] [address] Care Team Providers Care Spinner Concrete Pipe Name Role Phone None Reported, Pcp Primary Care Provider Unavail able Reason for Visit * Reason Comments Back Pain Presents with report s of back pain and states she us having a sickle cell crisis Encounter Details Date Type Department Care Team (Late st Contact Info) Description 01/28/2025 12:20 PM CDT - 01/28/2025 3:40 PM CDT Emergency [facility] [address] [place] [address] [phone] Klever Wells APRN, C.N.P., D.N.P. [address] [place] [phone] Hb-SS Disease (Sickle Cell) Vaso-Occlusive Pain Crisis (HCC) (Primary Dx); Pain In Joint; Pain Back Discharge Disposition: Home or Self Care Social [...] Sign Reading Time Taken Comments Blood Pressure 124/56 01/28/2025 3:15 PM CDT Pulse 83 01/28/2025 3:15 PM CDT Temperature 36.8 C (98.2 F) 01/28/2025 12:27 PM CDT Respiratory Rate 16 01/28/2025 12:27 PM CDT Oxygen Saturation 100% 01/28/2025 3:15 PM CDT Inhaled Oxygen Concentration - - Weight - - Height - - Body Mass Index - - documented in this encounter Discharge Instructions * Discharge Instructions* Klever Wells APRN, KareyN.Linda., D.N.P. - 01/28/2025 2:02 PM CDT Continue your outpatient regime for pain medication as well as your other sickle cell meds. Follow-up on Wednesday with hematology at the [facility]. This appointment is very important to say he would need to help figure out your pain plan for the emergency department. * Attachments The following attachments cannot be sent through Care Everywhere. * Living With Sickle Cell Disease (Urdu) documented in this encounter Medications at Time [...] as of this encounter ED Notes * Klever Wells, JAVIER, C.N.P., D.N.P. - 01/28/2025 12:23 PM CDT Images from the original note were not included. The patient verbally consented to an audio recording of their visit to assist with the completion of documentation. CHIEF COMPLAINT/REASON FOR VISIT Back Pain (Presents with reports of back pain and states she us having a sickle cell crisis) HISTORY OF PRESENT ILLNESS History of Present Illness Gianna Hernández is a 29 year old female with sickle cell disease who presents with a pain crisis. She has been experiencing a sickle cell pain crisis for the past couple of days, with pain affecting her joints in both legs, arms, and her entire back. She attributes the exacerbation of her pain toattending a and moving. No chest pain or shortness of breath, and this episode does not resemble her previous chest crises. Her medical history includes acute chest syndrome and blood clots. Recently, she had a blood infection leading to hospitalization. Cultures from her arm were positive, while those from her ports werenegative. She was treated with antibiotics, developed a fever of 105??F, leading to sepsis, and hadher ports removed. Her reticulocyte count was elevated during the infection but typically normalizes when she is not in pain or infected. She currently does not have a port in place. She lives in [place] and was brought to the hospital by her boyfriend, who works in [employer]. Emergency Pain plan from [facility] EMERGENCY CARE PLAN Please note that you [...] background: 29 yo F, recently moved from [place] Sickle Cell Disease History Primary Director Of Intelligence/RAILCAR FOREMAN/PA: Lizzie Genotype: SS Acute Pain Crisis Treatment: (note that Toradol is listed as an allergy) ER/Acute Care/Infusion Clinic: Hydromorphone 2 mg IVP/SC Q1H X 3 doses LR 500 ml/hr x 2 hours (1 L total) Other: Zofran 8 mg IV REVIEW OF SYSTEMS Constitutional: Negative for chills, diaphoresis, fatigue and fever. HENT: Negative for sinus pressure and sore throat. Respiratory: Negative for cough, chest tightness and shortness of breath. Cardiovascular: Negative for chest pain. Gastrointestinal: Negative for abdominal pain, constipation, diarrhea, nausea and vomiting. Genitourinary: Negative for dysuria, frequency and urgency. Musculoskeletal: Positive for arthralgias, back pain and myalgias. Skin: Negative for rash. Neurological: Negative for dizziness, weakness and headaches. Hematological: Negative for adenopathy. Bruises/bleeds easily. All other systems reviewed and are negative. Allergies Reviewed in medical record Current Medications Reviewed in Medical Record. PAST HISTORY Medical Medical History[1] Problem List[2] Surgical Surgical History[3] Family Reviewed in Medical Record Social History Social History Tobacco Use Smoking status: Never Smokeless tobacco: Never Substance Use Topics Alcohol use: Never Social History Substance and Sexual Activity Drug Use Never OBJECTIVE Initial Vital Signs / Weights Initial Vitals Temperature 01/28/25 1227 36.8 ??C Pulse Rate 01/28/25 1227 97 Heart Rate -- Resp Rate 01/28/25 1227 16 Blood Pressure 01/28/25 1227 103/68 SpO2 01/28/25 1227 98 % Pain Score 01/28/25 1229 9 Wt Readings from Last 3 Encounters: 01/27/25 49.7 kg 11/23/24 45.4 kg 10/07/24 50 kg PHYSICAL EXAMINATION Physical Exam VITALS: SaO2- 100% GENERAL: Alert, oriented x3, talkative, appears comfortable on stretcher. CHEST: Lungs clear to auscultation, slightly diminished at bases, no rhonchi, no crackles. CARDIOVASCULAR: Heart S1, S2 with no murmurs, clicks or rubs. Capillary refill brisk, no peripheraledema. ABDOMEN: Abdomen soft, flat, non-tender, normal bowel sounds. DIAGNOSTICS Labs Patient declined any workup for her sickle cell as she states this is her normal pain crisis, she does not feel she has had chest pain for chest acute chest syndrome, she has had this in the past. She does not believe she has sepsis or or other infections. Procedures None See separate procedure note. ED COURSE ED Course as of 01/28/25 1517 Sun Jan 28, 2025 1225 I performed my initial evaluation of the patient. We discussed Emergency Department course including testing, treatment, and potential disposition based on findings. 1426 Patient called on the hour for her second dose of medication 1515 Patient given her third dose of Dilaudid, she is calling for a ride. Plan to discharge her. Vital signs are stable. No respiratory depression, oxygen saturations have been 100% on room air. I discussed the plan for discharge with the patient, and patient/family is agreeable. I discussed with patient the utility, limitations, and findings of the exam/interventions/studies done during this visit as well as the list of differential diagnosis. Patient understands provisional nature of this diagnosis and need for follow up. We discussed the plan of care, including supportive cares. We also discussed symptoms to monitor and symptoms that should prompt them to return for re-evaluation including new or worsening symptoms. All questions and concerns addressed. Patient to be discharged byRN. Final Diagnoses: as of 01/28/25 1517 Hb-SS Disease (Sickle Cell) Vaso-Occlusive Pain Crisis (HCC) Pain In Joint Pain Back INTERVENTIONS Medications NaCl 0.9% infusion (500 mL/hr intravenous New Bag 01/28/25 1308) HYDROmorphone injection 2 mg (Dilaudid) (2 mg intravenous Given 01/28/25 1417) ondansetron (PF) injection 8 mg (Zofran) (8 mg intravenous Given 01/28/25 1305) diphenhydrAMINE capsule 50 mg (BenadryL) (50 mg oral Given 01/28/25 1305) MEDICAL DECISION MAKING Medical Decision Making 29-year-old female with a history of sickle cell disease (Hb-SS), prior acute chest syndrome, bloodclots, and recent sepsis secondary to a blood infection, presented with several days of diffuse joint pain involving the legs, arms, and back, consistent with her typical sickle cell pain crisis. Shedenied chest pain, shortness of breath, or abdominal pain. Exam was notable for clear lungs, normalheart sounds, no edema, and a soft, non-tender abdomen. She appeared comfortable on the stretcher, was alert and oriented, and had normal vital signs including oxygen saturation. Differential diagnosis includes, but is not limited [...] present. In addition, she is on Eliquis. HR WNL today Sickle cell pain crisis - Administered Zofran IV. - Administered 2 mg of Dilaudid every hour for three doses. - Administered a bag of fluid over two hours. - Administered oral Benadryl for itching. - Considered subcutaneous Dilaudid and oral medications if IV access is not possible. - Patient to follow up with hematology as scheduled for further pain management planning. - Given red flag signs and symptoms that should return her to the closest emergency department. DIAGNOSIS Final diagnoses: [D57.00] Hb-SS Disease (Sickle Cell) Vaso-Occlusive Pain Crisis (HCC) [M25.50] Pain In Joint [M54.9] Pain Back DISPOSITION Home or Self Care DISCHARGE/TRANSFER VITAL SIGNS Vitals: 01/28/25 1300 BP: Pulse: 90 Resp: Temp: SpO2: 100% ED DISCHARGE MEDS ED Prescriptions None FOLLOW UP Contact Information for Follow-ups [facility] Next Steps: Follow up in 2 day(s) Instructions: as scheduled. please KEEP this appt as they need to look at your pain plan for the Ed Klever Wells DNP, JAVIER, PRICING SUPERVISOR-C, AGACNP-BC, ENP-C Emergency Medicine [1] Past Medical History: Diagnosis Date Sickle Cell Disease (HCC) [2] Patient Active Problem List Diagnosis Chronic Pain Syndrome Sickle Cell Without Crisis (HCC) Opioid Moderate Or Severe Use Disorder (Dependence) Uncomplicated (HCC) [3] Past Surgical History: Procedure Laterality Date CHOLECYSTECTOMY HIP SURGERY Left KNEE SURGERY Left Klever Wells APRN, C.N.P., D.N.P. 01/28/25 1517 documented in this encounter Plan of Treatment Not on file documented as of this encounter Visit Diagnoses Diagnosis Hb-SS Disease (Sickle Cell) Vaso-Occlusive Pain Crisis (HCC)- Primary Pain In Joint Pain Back documented in this encounter Administered Medications Inactive Administered Medications - up to 3 most recent administrations Medication Order MAR Action Action Date Dose Rate Site diphenhydrAMINE capsule 50 mg (BenadryL) 50 mg, oral, Once, On 01/28/25 at 1244, For 1 dose Given 01/28/2025 1:05 PM CDT 50 mg HYDROmorphone injection 2 mg (Dilaudid) 2 mg, intravenous, Every 1 hour PRN, severe pain or score 7-10 of 10, Starting on 01/28/25 at 1231, For 3 doses Given 01/28/2025 3:22 PM CDT 2 mg Given 01/28/2025 2:17 PM CDT 2 mg Given 01/28/2025 1:10 PM CDT 2 mg NaCl 0.9% infusion 500 mL/hr, intravenous, Every 1 hour, First dose on 01/28/25 at 1233, For 2 hours New Bag 01/28/2025 1:08 PM CDT 500 mL/hr 500 mL/hr ondansetron (PF) injection 8 mg (Zofran) 8 mg, intravenous, Once, On 01/28/25 at 1233, For 1 dose Given 01/28/2025 1:05 PM CDT 8 mg documented in this encounter Active and Recently Administered Medications Times are shown in CDT. Scheduled Medication Order 01/26/2025 01/27/2025 01/28/2025 diphenhydrAMINE capsule 50 mg (BenadryL) (COMPLETED) 50 mg, oral, Once, On 01/28/25 at 1244, For 1 dose 1305 (Given - Provid er: Olga Pappas R.N.) NaCl 0.9% infusion 500 mL/hr, intravenous, Every 1 hour, First dose on 01/28/25 at 1233, For 2 hours 1308 (New Bag - Prov ider: Olga Pappas RSherylNSheryl)1333 (Due)1527 (Stopped - Provider: Olga Pappas R.N.) ondansetron (PF) injection 8 mg (Zofran) (COMPLETED) 8 mg, intravenous, Once, On 01/28/25 at 1233, For 1 dose 1305 (Given - Provid er: Olga Pappas R.N.) PRN Medication Order 01/26/2025 01/27/2025 01/28/2025 HYDROmorphone injection 2 mg (Dilaudid) (COMPLETED) 2 mg, intravenous, Every 1 hour PRN, severe pain or score 7-10 of 10, Starting on 01/28/25 at 1231, For 3 doses 1310 (Given - Provid er: Olga Pappas R.N.)1417 (Given - Provider: Domi Leiva.N.)1522 (Given - Provider: Domi Leiva.Shawanda.) documented in this encounter Care Teams Spinner Concrete Pipe Relationship Specialty Start Date End Date None Reported, Pcp PCP - General Family Medicine 07/22/24 documented as of this encounter
--- OUTSIDE RECORDS SUMMARY | 2025-01-29 12:54 | XMS_ITS | Encounter Summary ---
Author Organization Tram Address [address] [place] [address]. [place] [address] Care Team Providers Care Optical Designer Name Role Phone Roxy Mor Unavailable Unavailable Case Samuel MD Unavailable [phone] Juhi Benson RN Unavailable Unavailable Veronica Joseph MD Primary Care Provider [phone] Olinda Vora APRN PUNCH MACHINE OPERATOR Unavailable [phone] Stiven Stanley Unavailable Star Galarza MD Unavailable [phone] Reason for Visit * Reason Comments Sickle Cell Pain Crisis * Auth/Cert Specialty Diagnoses / Procedures Referred By Shahid pendleton Referred To Contact EMERGENCY MEDICINE Diagnoses Sickle cell disease with crisis (H) Maldonado Gerard MD [address] [place] [address] [place] [address] Phone: tel: fax: [facility] Emergency Department [address] [place] [address] Phone: tel: Referral ID Status Reason Start Date Expiration Date Visits Re quested Visits Authorized [id number] 1 1 Encounter Details Date Type Department Care Team ([facility] st Contact Info) Description 01/29/2025 12:54 PM CDT - 01/30/2025 9:01 AM CDT Hospital Encounter [facility] Emergency Department [address] [place] [address] Payal Arriaga M, DO [address] [place] [id number] Andres Jain DO Krohn, Kristina Marie, MD [address] [place], [place] [id number] Sickle cell disease with crisis (H) (Primary [...] Sign Reading Time Taken Comments Blood Pressure 108/78 01/30/2025 7:54 AM CDT Pulse 71 01/30/2025 12:41 AM CDT Temperature 37.1 C (98.7 F) 01/30/2025 12:41 AM CDT Respiratory Rate 16 01/30/2025 12:41 AM CDT Oxygen Saturation 100% 01/30/2025 12:41 AM CDT Inhaled Oxygen Concentration - - Weight - - Height - - Body Mass Index - - documented in this encounter Discharge Summaries * Quiana Torres MD - 01/30/2025 9:01 AM CDT [facility] Discharge Summary - Medicine & Pediatrics Date of Admission: 01/29/2025 Date of Discharge: 01/30/2025 9:01 AM Discharging Provider: Quiana Torres Discharge Service: Medicine Service, [facility] TEAM 1 Discharge Diagnoses Sickle cell pain crisis vs chronic pain Anxiety Functional asplenia Clinically Significant Risk Factors Follow-ups Needed After Discharge Follow-up Appointments ADULT [facility] Specialty Follow-up and recommended labs and tests Keep your Heme/Onc appointment 02/15 to discuss the management of your disease and how to minimize additional flares. Appointments on [facility] and/or [facility] (with [facility] or [facility] provider or service). Call [phone] if you haven't heard regarding these appointments within 7 days of discharge. Unresulted Labs Ordered in the Past 30 Days of this Admission No orders found for last 31 day(s). 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 # Sickle Cell Pain Crisis (Vaso-occlusive Episode) vs Chronic Pain Patient with HbSS presenting with one week of worsening pain involving the chest, back, and bilateral lower extremities, consistent with prior crises. No fever, chills, or infectious symptoms. Pain not consistent with prior acute chest syndrome. 21 recent ED visits last month for pain crises, 3 admissions. Primary Sickle Cell team with concerns that frequent recent visits are not likely to be herSCD but rather chronic pain, with some root historically in the SCD. Consider on future hospital contact that it may not be appropriate any longer to attribute it to SCD. Some contribution related topsychosocial issues (sparce familial network in the area, long distance from care without reliable t ransportation, mood disorder, etc). Do not want to miss a change in health but may in the future consider limiting IV options and evaluate other contributors to pain on a regular basis. Over her lifetime it has been communicated to her that her pain is all related to SCD and to seek care for it so untangling the contribution of psychosocial, chronic pain, and SCD contributions may be challenging.Her primary Hematology team is well informed on her current dynamic pain issues and she additionally has a visit scheduled with Addiction Medicine upcoming. - Inpatient Care Plan: - Continue Dilaudid 2 mg IV q3h - Adjuncts: oxycodone, acetaminophen, and lidocaine patches PRN - Maintain bowel regimen (Senna, Miralax). - Hydration: Continue maintenance IV fluids, avoid overhydration. - Monitor: Vitals, O? saturation, urine output, pain control, and sedation level. - Labs: CBC, CMP, reticulocyte count daily. - Transfusion: If Hgb <7 g/dL or concern for acute chest syndrome. - Respiratory: Encourage incentive spirometry. - Hematology: - Outpatient field hockey coach aware of admission and will see patient for follow-up coordination. - DO NOT TRANSFUSE WITHOUT DISCUSSING WITH HEMATOLOGY ATTENDING (available 16/11). TRANSFUSION IS RISKY DUE TO RISK OF ALLOIMMUNIZATION AGAINST RBC ANTIGENS AND IRON OVERLOAD. INDICATIONS FOR TRANSFUSION ARE ACUTE STROKE AND ACUTE CHEST SYNDROME (hypoxia plus infiltrate, not chest pain). DO NOT TRANSFUSE FOR ANEMIA - Continue Hydroxyurea 1,000 mg BID and Folic Acid 1 mg daily. # History of DVT/PE History of right upper extremity DVT (11/2023) and bilateral PE (06/2024). - Continue Apixaban 5 mg BID during hospitalization. - Monitor for bleeding or new clot symptoms. # Anxiety History of anxiety. Her pain is likely driven by mental health concerns, which she has acknowledged, and she has been referred to mental health as of early May 2024. Recent and moving are some current stressors. Pt has 2 year old daughter, Colleen, and has been to the hospital more days than not in the past month. Frequency of visits of late concerning for social/emotional concerns. Alerted her Limnology Teacher to this concern and they have a deep understanding of her current multifactorial pain issues. Has Addiction Medicine appt 03/29 as well. - Continue home Prozac. - Provide reassurance; reinforce outpatient therapy engagement. - Social work and psychology available as needed for additional support. 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 - No acute management required. - Continue standard secondary prevention through ongoing anticoagulation and chronic sickle cell management. 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 - No acute intervention required. - Ensure routine vaccinations and infection precautions up to date (to be reviewed outpatient). Consultations This Hospital Stay CONSULT FOR INPATIENT VASCULAR ACCESS CARE CLASSICAL HEMATOLOGY ADULT IP CONSULT CARE MANAGEMENT / SOCIAL WORK IP CONSULT Code Status Prior The patient was discussed with Dr. Messina. Quiana Torres MD [facility] EMERGENCY DEPARTMENT [address] [facility] [address] Physical Exam Vital Signs: Temp: 98.7 ??F (37.1 ??C) Temp src: Oral BP: 108/78 Pulse: 71 Resp: 16 SpO2: 100 % [id number]: None (Room air) Weight: 0 lbs 0 oz General Appearance: Awake, alert, in no acute distress Respiratory: CTAB, no wheezing or crackles Cardiovascular: RRR, no murmurs or gallops GI: No pain on palpation. Primary Care Physician Veronica Joseph Discharge Orders Reason for your hospital stay You were admitted with a sickle cell pain crisis and treated with IV fluids as well as pain medications. You are feeling better such that you feel you are ready to discharge but if you start having worsening symptoms that cannot be managed at home we encourage you to come back for evaluation and treatment. Activity Your activity upon discharge: activity as tolerated ADULT [facility] Specialty Follow-up and recommended labs and tests Keep your Heme/Onc appointment 02/15 to discuss the management of your disease and how to minimize additional flares. Appointments on [facility] and/or [facility] (with [facility] or [facility] provider or service). Call [phone] if you haven't heard regarding these appointments within 7 days of discharge. Diet Follow this diet upon discharge: Current Diet:Orders Placed This Encounter Regular Diet Adult Significant Results and Procedures Most Recent 3 CBC's: Recent Labs Lab Test 01/30/2571901/29/25135001/25/251939 WBC 13.34* 14.09* 10.83 HGB 8.0* 8.2* 8.5* MCV 100.0 100.4* 98.8 PLT 349 409 509* Most Recent 3 BMP's: Recent Labs Lab Test 01/30/2571901/29/25135001/25/251939 NA 137 140 140 POTASSIUM 3.7 4.9 3.8 CHLORIDE 104 104 106 CO2 20* 20* 22 BUN 4.8* 6.0 9.6 CR 0.68 0.67 0.68 ANIONGAP 13 16* 12 EVELIN 8.4* 9.4 9.5 GLC 97 89 86 Most Recent 2 LFT's: Recent Labs Lab Test 01/25/25193901/24/252126 AST 39 41 ALT 23 24 ALKPHOS 78 80 BILITOTAL 1.7* 2.0* Most Recent 3 INR's: Recent Labs Lab Test 01/25/25193901/24/25212601/19/25 181 INR 1.34* 1.29* 1.37* Discharge Medications Review of your medicines CONTINUE these medicines which have NOT CHANGED Dose / Directions apixaban ANTICOAGULANT 5 MG tablet Commonly known as: ELIQUIS Used for: Acute pulmonary embolism without acute cor pulmonale, unspecified pulmonary embolism type(H) Dose: 5 mg Take 1 tablet (5 mg) by mouth 2 times daily. Quantity: 60 tablet Refills: 3 diphenhydrAMINE 25 MG tablet Commonly known as: [...] Commonly known as: NARCAN Dose: 4 mg [place] 1 spray (4 mg) into one nostril [...] for constipation. Quantity: 60 tablet Refills: 0 Where to get your medicines These medications were sent to [facility] - [facility] [address] [facility] [address] [facility] [address] HYDROmorphone 2 MG tablet Allergies Allergies Allergen Reactions Banana Anaphylaxis, Hives [...] nut Tramadol Hives Cashew Nut Oil Hives Cosigned by Yari Messina MD at 02/01/2025 10:42 PM CDT Associated attestation - Yari Messina MD - 02/01/2025 10:42 PM CDT Physician Attestation I saw and evaluated this patient prior to discharge. I discussed the patient with the resident/fellow and agree with plan of care as documented in the note. I personally reviewed vital signs, medications, and labs. I personally spent 15 minutes on discharge activities. Yari Messina MD Date of Service (when I saw the patient): 01/30/25 documented in this encounter Medications at Time [...] 05/01/2024 naloxone (NARCAN) 4 MG/0.1ML nasal spray [place] 1 spray (4 mg) into one nostril [...] Week supply. 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 # Sickle Cell Pain Crisis (Vaso-occlusive Episode) Patient with HbSS presenting with one week of worsening pain involving the chest, back, and bilateral lower extremities, consistent with prior crises. No fever, chills, or infectious symptoms. Pain feels different from prior acute chest syndrome. Recent admissions: 12/29-12/31 for pain crisis; 11/02-11/07 for MRSA bacteremia (completed 4-week cefazolin course). - Pain control: - Continue Dilaudid 2 mg IV q2h PRN (per care plan and patient preference); taper to q3h as tolerated. - Adjuncts: oxycodone, acetaminophen, and lidocaine patches PRN. - Maintain bowel regimen (Senna, Miralax). - Hydration: Continue maintenance IV fluids, avoid overhydration. - Monitor: Vitals, O? saturation, urine output, pain control, and sedation level. - Labs: CBC, CMP, reticulocyte count daily. - Transfusion: If Hgb <7 g/dL or concern for acute chest syndrome. - Respiratory: Encourage incentive spirometry. - Hematology: - Outpatient field hockey coach aware of admission and will see patient tomorrow for follow-up coordination. Inpatient consulted - Continue Hydroxyurea 1,000 mg BID and Folic Acid 1 mg daily. # History of DVT/PE History of right upper extremity DVT (11/2023) and bilateral PE (06/2024). - Continue Apixaban 5 mg BID during hospitalization. - Monitor for bleeding or new clot symptoms. # Anxiety History of anxiety, currently stable. - Continue home Prozac. -Provide reassurance; reinforce outpatient therapy engagement. - Social work and psychology available as needed for additional support. 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 - No acute management required. - Continue standard secondary prevention through ongoing anticoagulation and chronic sickle cell management. 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 - No acute intervention required. - Ensure routine vaccinations and infection precautions up to date (to be reviewed outpatient). # Bilateral Pulmonary Nodules Stable pulmonary nodules noted on prior imaging and again on today???s chest X-ray. - No acute intervention required. - Outpatient follow-up with primary care or pulmonology for interval surveillance imaging. Diet: Regular Diet Adult Diet DVT Prophylaxis: Apixaban Santiago Catheter: Not present Fluids: 1L LR Lines: None Cardiac Monitoring: None Code Status: Full Code The patient's care was discussed with the Attending Physician, Dr. Jain. 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 She reports one week of worsening sickle cell pain, prompting daily ED visits for the past seven days. She was evaluated at the [facility] the night prior, where she received pain medications but declined admission after improvement. The patient describes pain involving the chest, back, and bilateral lower extremities, consistent with her prior vaso-occlusive crises. She notes mild chest discomfort and shortness of breath, thoughstates this episode does not resemble her prior acute chest syndrome. She denies fever, chills, cough, palpitations, lightheadedness, syncope, or recent trauma. She was admitted from 11/02-11/07 for MRSA bacteremia, for which she completed a 4-week course of cefazolin, and again from 12/29-12/31 for an acute pain crisis. During the latter admission, a right atrialmass was identified and initially raised concern for endocarditis, though there is currently no evidence of active infection. She denies any identifiable trigger for the current episode. The patient also reports ongoing psychosocial stressors, including the recent of her father by suicide last month, after which she has noticed more frequent pain crises. She currently lives with her boyfriend and his parents, where there is frequent conflict contributing to stress, though shecontinues to engage in therapy for emotional support. 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 May repeat one time in 5-15 minutes if response to initial dose is inadequate. FLUoxetine (PROZAC) 40 MG capsule Unknown Self, Other No Yes Sig: Take 1 capsule (40 mg) by mouth daily. HYDROmorphone (DILAUDID) 2 MG tablet Unknown Self No No Sig: Take 1 tablet (2 mg) by mouth every 6 hours as needed for severe pain or breakthrough pain. 1 Week supply. No early refills apixaban ANTICOAGULANT (ELIQUIS) 5 MG tablet Unknown Self No Yes Sig: Take 1 tablet (5 mg) by mouth 2 times daily. diphenhydrAMINE (BENADRYL) 25 MG tablet Unknown Self, Other Yes Yes Sig: Take 1-2 tablets by mouth every 6 hours as needed for itching. folic acid (FOLVITE) 1 MG tablet Unknown Self, Other No Yes Sig: Take 1 tablet (1 mg) by mouth daily. hydroxyurea (HYDREA) 500 MG capsule Unknown Self, Other No Yes Sig: Take 2 capsules (1,000 mg) by mouth 2 times daily multivitamin, therapeutic (THERA-VIT) TABS tablet Unknown Self, Other No Yes Sig: Take 1 tablet by mouth daily. naloxone (NARCAN) 4 MG/0.1ML nasal spray Self, Other No Yes Sig: [place] 1 spray (4 mg) into one nostril alternating nostrils as needed for opioid reversal (for opiate overdose if not breathing and unconscious. have your family member watch video on how to use/read information sheet). every 2-3 minutes until assistance arrives ondansetron (ZOFRAN ODT) 4 MG ODT tab Unknown Self, Other No Yes Sig: Take 1 tablet (4 mg) by mouth every 6 hours as needed for nausea or vomiting. polyethylene glycol (MIRALAX) 17 GM/Dose powder Unknown Self, Other No Yes Sig: Take 17 g by mouth 2 times daily as needed for constipation. senna-docusate (SENOKOT-S/PERICOLACE) 8.6-50 MG tablet Unknown Self, Other No Yes Sig: Take 2 tablets by mouth 2 times daily as needed for constipation. Facility-Administered Medications: None Physical Exam Vital Signs: Temp: 98.4 ??F (36.9 ??C) Temp src: Oral BP: 108/78 Pulse: 72 Resp: 18 SpO2: 100 % O2 Device: None (Room air) Weight: 0 lbs 0 oz General Appearance: Awake, alert, in moderate distress Respiratory: CTAB, no wheezing or crackles Cardiovascular: RRR, no murmurs or gallops GI: No pain on palpation. Medical Decision Making Please see A&P for additional details of medical decision making. Data PAST 24 HR DATA REVIEWED I have personally reviewed the following data over the past 24 hrs: 14.09 (H) \ 8.2 (L) / 409 140 104 6.0 / 89 4.9 20 (L) 0.67 \ Trop: <6 BNP: 319 (H) Ferritin: N/A % Retic: 13.92 (H) LDH: N/A Cosigned by Andres Jain DO at 01/30/2025 7:04 PM CDT Associated attestation - Andres Jain DO - 01/30/2025 7:04 PM CDT Physician Attestation I saw this patient with the resident and agree with the resident/fellow's findings and plan of careas documented in the note. [place] findings: Ms. Hernández presents with pain of the back and legs - and chest, though she is quick to deny dyspnea and reports pain is dissimilar from her prior acute chest syndromes - typical for hersickle cell flares. She has been seen often in the ED in recent weeks and outpt hematology notes a psychosocial element in provoking pain. On exam she appears comfortable and in no distress. Hemoglobin is similar to prior. We will adhere to the treatment plan and see if we can move the needle on psychosocial assessment or better understanding what is preventing her thriving at home. Please see A&P for additional details of medical decision making. I have personally reviewed the following data over the past 24 hrs: 13.34 (H) \ 8.0 (L) / 349 137 104 4.8 (L) / 97 3.7 20 (L) 0.68 \ Andres Jain DO Date of Service (when I saw the patient): 01/29/25 documented in this encounter ED Notes * Alexsandra Farfan RN - 01/29/2025 6:35 PM CDT Bed: ED35 Expected date: Expected time: Means of arrival: Comments: Sirena stover * Payal Arriaga DO - 01/29/2025 1:00 PM CDT Images from the original note were not included. [place] [facility] ([facility]) 01/29/25 ED PROVIDER NOTE History Chief Complaint Patient presents with Sickle Cell Pain Crisis HPI Gianna Hernández is a 29 year old female with a history of history of sickle cell disease (HbSS) c/b acute chest syndrome, cardiac thrombus associated w/ port and endocarditis in distant past, R retinopathy, upper extremity DVT (11/2023), bilateral PE (06/26/24) on Eliquis, and transfusional iron overload previously on jadenu who presents to the ED for sickle cell pain flare up. Patient has been experiencing sickle cell pain crisis for the past week, requiring 7 consecutive days of ED visits. She endorses today, that she is having pain in her chest back and bilateral lower extremities. This isconsistent with previous pain crises. Patient was seen at [place] just last night for the same. She was able to be discharged after 2 doses of Dilaudid. Patient states that it does not feel exactly likethe time that she had acute chest syndrome. She is porting pain across her chest anteriorly. She isreporting a little bit of chest shortness of breath but denies any lightheadedness syncope palpitations cough fever. No recent trauma. 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 Physical Exam BP: 110/75 Pulse: 80 Temp: 98.4 ??F (36.9 ??C) Resp: 18 SpO2: 100 % Physical Exam Gen: Awake [...] Interpreted by Payal Arriaga DO Time reviewed: 1 PM Symptoms at time of EKG: Chest pain Rhythm: normal sinus Rate: normal [place]icking: normal Ectopy: none Conduction: normal ST Segments/ T Waves: No ST-T wave changes Q Waves: none Comparison to prior: Unchanged Clinical Impression: normal EKG Results for orders placed or performed during the hospital encounter of 01/29/25 XR Chest 2 Views Impression IMPRESSION: Bony changes of sickle cell as described above. No acute chest findings. EVY FUENTES MD Basic Metabolic Panel (Limited Occurrences) Result Value Ref Range Sodium 140 135 - 145 mmol/L Potassium 4.9 3.4 - 5.3 mmol/L Chloride 104 98 - 107 mmol/L Carbon Dioxide (CO2) 20 (L) 22 - 29 mmol/L Anion Gap 16 (H) 7 - 15 mmol/L Urea Nitrogen 6.0 6.0 - 20.0 mg/dL Creatinine 0.67 0.51 - 0.95 mg/dL GFR Estimate >90 >60 mL/min/1.73m2 Calcium 9.4 8.8 - 10.4 mg/dL Glucose 89 70 - 99 mg/dL Reticulocyte count Result Value Ref Range % Reticulocyte 13.92 (H) 0.50 - 2.00 % Absolute Reticulocyte 0.3327 (H) 0.0250 - 0.0950 10e6/uL NT-proBNP Result Value Ref Range NT-proBNP 319 (H) 0 - 178 pg/mL CBC with platelets and differential Result Value Ref Range WBC Count 14.09 (H) 4.00 - 11.00 10e3/uL RBC Count 2.39 (L) 3.80 - 5.20 10e6/uL Hemoglobin 8.2 (L) 11.7 - 15.7 g/dL Hematocrit 24.0 (L) 35.0 - 47.0 % MCV 100.4 (H) 78.0 - 100.0 fL MCH 34.3 (H) 26.5 - 33.0 pg MCHC 34.2 31.5 - 36.5 g/dL RDW 18.4 (H) 10.0 - 15.0 % Platelet Count 409 150 - 450 10e3/uL % Neutrophils 63.5 % % Lymphocytes 21.5 % % Monocytes 12.0 % % Eosinophils 0.6 % % Basophils 1.1 % % Immature Granulocytes 1.3 % NRBCs per 100 WBC 2.1 (H) <1.0 /100 Absolute Neutrophils 8.94 (H) 1.60 - 8.30 10e3/uL Absolute Lymphocytes 3.03 0.80 - 5.30 10e3/uL Absolute Monocytes 1.69 (H) 0.00 - 1.30 10e3/uL Absolute Eosinophils 0.08 0.00 - 0.70 10e3/uL Absolute Basophils 0.16 0.00 - 0.20 10e3/uL Absolute Immature Granulocytes 0.19 <=0.40 10e3/uL Absolute NRBCs 0.29 10e3/uL Extra Blue Top Tube Result Value Ref Range Hold Specimen JIC Extra Red Top Tube Result Value Ref Range Hold Specimen JIC RBC and Platelet Morphology Result Value Ref Range RBC Morphology Confirmed RBC Indices Platelet Assessment Automated Count Confirmed. Platelet morphology is normal. Automated Count Confirmed. Platelet morphology is normal. Polychromasia Slight (A) None Seen Sickle Cells Slight (A) None Seen Target Cells Slight (A) None Seen EKG 12-lead, tracing only Result Value Ref Range Systolic Blood Pressure mmHg Diastolic Blood Pressure mmHg Ventricular Rate 79 BPM Atrial Rate 79 BPM NH Interval 152 ms QRS Duration 84 ms QT 372 ms QTc 426 ms P [place] 76 degrees R AXIS 72 degrees T [place] 47 degrees Interpretation ECG Unconfirmed report - interpretation of this ECG is computer generated - see medical record for final interpretation Sinus rhythm Normal ECG Confirmed by - EMERGENCY ROOM, PHYSICIAN (Des), film and video editor Nivia Willson ([id number]) on 01/29/2025 3:41:55 PM Medications ondansetron (ZOFRAN) injection 8 mg (8 mg Intravenous $Given 01/29/25 1359) lactated ringers BOLUS 1,000 mL (1,000 mLs Intravenous $New Bag 01/29/25 1400) hydromorphone (DILAUDID) injection 2 mg (2 mg Intravenous $Given 01/29/25 1606) Critical care was not performed. Medical Decision [...] (a decision regarding hospitalization). Assessment & Plan Vital signs stable. Patient presenting very similar to her previous pain crises. Patient does have history of acute chest syndrome so we will evaluate for that. EKG nonischemic with no arrhythmias Chest x-ray does not show any acute pathology. Labs significant for elevated white count anemia which is baseline as well as elevated reticulocyte percentage. This is all consistent with pain crises.At this point I do not have concern for acute chest syndrome PE the ACS pneumothorax or other emergent causes of her chest pain. Of note patient did have atrial mass that was concern for endocarditis given her recent bacteremia.It looks like patient left AMA from admission 1 month ago where it was recommended she receive a MANUEL for further evaluation. On reevaluation after 3 doses of pain meds patient continues to have significant pain and feels as though she needs to be admitted to have her pain controlled. Patient will admitted for sickle pain crisis and continuation of the endocarditis workup. At this point I do not feel strongly about endocarditis to the point where I need to give patient antibiotics empirically. She is not having any infectious symptoms. The chest pain is in fact more posterior chest wall pain I have reviewed the nursing notes. I have reviewed the findings, diagnosis, plan and need for follow up with the patient. New Prescriptions No medications on file Final diagnoses: Sickle cell disease with crisis (H) DO Latesha Stewart [facility] 01/29/2025 Payal Arriaga DO 01/29/25 1613 * Juhi Crump RN - 01/29/2025 12:54 PM CDT Bed: [facility] Expected date: Expected time: Means of arrival: Comments: Hw3 recliner documented in this encounter Miscellaneous Notes * Plan of Care - Terell Jacobo RN - 01/30/2025 8:13 AM CDT Goal Outcome Evaluation: Plan of Care Reviewed With: patient Overall Patient Progress: improvingOverall Patient Progress: improving Outcome Evaluation: Met DISCHARGE Discharged to: Home Via: Automobile Accompanied by: John Discharge Instructions: diet, activity, medications, follow up appointments, when to call the MD, aftercare instructions. Prescriptions: no meds needed Follow Up Appointments: information given Belongings: All sent with pt IV: removed Telemetry: off Pt exhibits understanding of above discharge instructions; all questions answered. Discharge Paperwork: sent home with patient. Patient requested discharge * Plan of Care - Miguel Angel John RN - 01/30/2025 5:37 AM CDT Goal Outcome Evaluation: Plan of Care Reviewed With: patient Overall Patient Progress: no changeOverall Patient Progress: no change .BP 116/76 (BP Location: Right arm) Pulse 71 Temp 98.7 ??F (37.1 ??C) (Oral) Resp 16 LMP 01/12/2025 (Exact Date) SpO2 100% 7818-2205: Pt alert and oriented. Avss on room air. One episode of nausea, gave prn Zofran x1. Ongoing pain, getting Dilaudid 2mg every 2 hours. Prn Benadryl once. Mivf-LR infusing at 75ml/hr. Up independent inroom. Cont with poc, Problem: Adult Inpatient Plan of Care Goal: Plan of Care Review Description: The Plan of Care Review/Shift note should be completed every shift. The Outcome Evaluation is a brief statement about your assessment that the patient is improving, declining, or no change. This information will be displayed automatically on your shift note. Outcome: Progressing Flowsheets (Taken 01/30/2025 0536) Plan of Care Reviewed With: patient Overall Patient Progress: no change * Plan of Care - Terell Jacobo RN - 01/29/2025 7:30 PM CDT BP 110/75 Pulse 80 Temp 98.4 ??F (36.9 ??C) (Oral) Resp 18 LMP 01/12/2025 (Exact Date) SpO2 100% Reason for admission: Abdominal pain. Sickle cell crisis Activity: Up ad chandler Pain: 02/02 abdominal/ back pain. Managed with q 2 dilaudid Neuro: Ano4. Cardiac: WDL no complaints of cp to me. Prior to admission some anterior chest pain. Cardiac work up neg Respiratory: RA. Earlier in shift complaints of sob. None for me. Satting 98 on RA GI/: [place] Diet: Reg Lines: PIV LR at 75 In bed awaiting inpatient and managing sickle cell crisis with fluids and pain meds Goal Outcome Evaluation: Plan of Care Reviewed With: patient Overall Patient Progress: improvingOverall Patient Progress: improving * Medication Scribe - Admission Medication History - Gerard Kenney - 01/29/2025 5:36 PM CDT Medication Scribe Admission Medication History Admission medication history is complete. The information provided in this note is only as accurateas the sources available at the time of the update. Information Source(s): Patient via in-person Pertinent Information: Patient reported that her CLINICAL SYSTEMS EDUCATOR medication list is the same, but denied to specify when she last took her medications. Changes made to CLINICAL SYSTEMS EDUCATOR medication list: Added: None Deleted: None Changed: None Allergies reviewed with patient and updates made in EHR: no Medication History Completed By: Gerard Kenney 01/29/2025 5:36 PM CLINICAL SYSTEMS EDUCATOR Med List Medication Sig Last Dose/Taking apixaban ANTICOAGULANT (ELIQUIS) 5 MG tablet Take 1 tablet (5 mg) by mouth 2 times daily. Unknown diphenhydrAMINE (BENADRYL) 25 MG tablet Take 1-2 tablets by mouth every 6 hours as needed for itching. Unknown EPINEPHrine (ANY BX GENERIC EQUIV) 0.3 MG/0.3ML injection 2-pack Inject 0.3 mg into the muscle as needed for anaphylaxis. May repeat one time in 5-15 minutes if response to initial dose is inadequate. Taking As Needed FLUoxetine (PROZAC) 40 MG capsule Take 1 capsule (40 mg) by mouth daily. Unknown folic acid (FOLVITE) 1 MG tablet Take 1 tablet (1 mg) by mouth daily. Unknown hydroxyurea (HYDREA) 500 MG capsule Take 2 capsules (1,000 mg) by mouth 2 times daily Unknown multivitamin, therapeutic (THERA-VIT) TABS tablet Take 1 tablet by mouth daily. Unknown naloxone (NARCAN) 4 MG/0.1ML nasal spray [place] 1 spray (4 mg) into one nostril [...] hours as needed for nausea or vomiting. Unknown polyethylene glycol (MIRALAX) 17 GM/Dose powder Take 17 g by mouth 2 times daily as needed for constipation. Unknown senna-docusate (SENOKOT-S/PERICOLACE) 8.6-50 MG tablet Take 2 tablets by mouth 2 times daily as needed for constipation. Unknown documented in this encounter Plan of Treatment Upcoming Encounters Date Type Department Care Team (Late st Contact Info) Description 02/15/2025 10:30 AM CDT Lab [facility] Cancer [address] [phone] Olinda Vora APRN PUNCH MACHINE OPERATOR [address] [place] [address] [phone] 02/15/2025 11:00 AM CDT Oncology Visit [address] [phone] Olinda Vora APRN PUNCH MACHINE OPERATOR [address] [place] [address] [phone] 04/09/2025 3:00 PM RAIL ASSEMBLER Lab [address] [phone] Case Samuel MD [address] [place], [place] [phone], [address] [place], [place] [phone] 04/09/2025 3:30 PM RAIL ASSEMBLER Oncology Visit [address] [phone] Case Samuel MD [address] [place] [address], [address] [place], [place] [phone] documented as of this encounter Goals Goal [...] Priority Date/Time Associated Diagnosis Comments BASIC METABOLIC PANEL (LIMITED OCCURRENCES) STAT 01/30/2025 7:20 AM CDT CBC WITH PLATELETS STAT 01/30/2025 7: 20 AM CDT TROPONIN T, HIGH SENSITIVITY STAT 01/29/2025 4:14 PM CDT XR CHEST 2 VIEWS STAT 01/29/2025 2:10 PM CDT EXTRA TUBE STAT 01/29/2025 1:51 PM CDT EXTRA RED TOP TUBE STAT 01/29/2025 1: 51 PM CDT EXTRA BLUE TOP TUBE STAT 01/29/2025 1 :51 PM CDT RBC AND PLATELET MORPHOLOGY STAT 01/29/2025 1:51 PM CDT CBC WITH PLATELETS AND DIFFERENTIAL STAT 01/29/2025 1:51 PM CDT CBC WITH PLATELETS AND DIFFERENTIAL (LIMITED OCCURRENCES) STAT 01/29/2025 1:51 PM CDT BASIC METABOLIC PANEL (LIMITED OCCURRENCES) STAT 01/29/2025 1:51 PM CDT RETICULOCYTE COUNT STAT 01/29/2025 1: 51 PM CDT NT-PROBNP STAT 01/29/2025 1:51 PM CDT EKG 12-LEAD, TRACING ONLY STAT 01/29/2025 1:17 PM CDT documented in this encounter Results * (ABNORMAL) CBC with platelets (01/30/2025 7:20 AM CDT) WBC Count 13.34(H) 4.00 - 11.00 10e3/uL 01/30/2025 7:35 AM CDT [facility] RBC Count 2.37(L) 3.80 - 5.20 10e6/uL 01/30/2025 7:35 AM CDT [facility] Hemoglobin 8.0(L) 11.7 - 15.7 g/dL 01/30/2025 7:35 AM CDT [facility] Hematocrit 23.7(L) 35.0 - 47.0 % 01/30/2025 7:35 AM CDT [facility] MCV 100.0 78.0 - 100.0 fL 01/30/2025 7:35 AM CDT [facility] MCH 33.8(H) 26.5 - 33.0 pg 01/30/2025 7:35 AM CDT [facility] MCHC 33.8 31.5 - 36.5 g/dL 01/30/2025 7:35 AM CDT [facility] RDW 18.4(H) 10.0 - 15.0 % 01/30/2025 7:35 AM CDT [facility] Platelet Count 349 150 - 450 10e3/uL 01/30/2025 7:35 AM CDT [facility] Blood STRUCTURE OF RIGHT WRIST REGION / Unknown Venipuncture / Unknown 01/30/2025 7:20 AM CDT 01/30/2025 7:27 AM CDT us Shavon Contreras DO LAB - BLOOD ORDERABLES Final Result [facility] [address], [address] [place] [address], [facility] * (ABNORMAL) Basic Metabolic Panel (Limited Occurrences) (01/30/2025 7:20 AM CDT) Sodium 137 135 - 145 mmol/L 01/30/2025 8:52 AM CDT [facility] Potassium 3.7 3.4 - 5.3 mmol/L 01/30/2025 8:52 AM CDT [facility] Chloride 104 98 - 107 mmol/L 01/30/2025 8:52 AM CDT [facility] Carbon Dioxide (CO2) 20(L) 22 - 29 mmol/L 01/30/2025 8:52 AM CDT [facility] Anion Gap 13 7 - 15 mmol/L 01/30/2025 8:52 AM CDT [facility] Urea Nitrogen 4.8(L) 6.0 - 20.0 mg/dL 01/30/2025 8:52 AM CDT [facility] Creatinine 0.68 0.51 - 0.95 mg/dL 01/30/2025 8:52 AM CDT [facility] GFR Estimate >90 >60 mL/min/1.7 3m2 01/30/2025 8:52 AM CDT [facility] Comment:eGFR calculated 2020 CKD-EPI equation. Calcium 8.4(L) 8.8 - 10.4 mg/dL 01/30/2025 8:52 AM CDT [facility] Glucose 97 70 - 99 mg/dL 01/30/2025 8:52 AM CDT [facility] Blood STRUCTURE OF RIGHT WRIST REGION / Unknown Venipuncture / Unknown 01/30/2025 7:20 AM CDT 01/30/2025 7:26 AM CDT us Shavon Contreras DO LAB - BLOOD ORDERABLES Final Result [facility] [place] [facility] [address] [facility] [address], [address] [place] [address], [facility] * Troponin T, High Sensitivity (01/29/2025 4:14 PM CDT) Troponin T, High Sensitivity <6 <=14 ng/L 01/29/2025 5:03 PM CDT [facility] Comment: Either a [...] BLOOD SPECIMEN / Unknown Venipuncture / Unknown 01/29/2025 4:14 PM CDT 01/29/2025 4:30 PM CDT Payal Arriaga DO LAB - BLOOD ORDERABLES Final Result [facility] Lab [address] [facility] [address], [address] [phone] * XR Chest 2 Views (01/29/2025 2:10 PM CDT) Anatomical Region Laterality Modality Chest Digital Radiogra phy Impressions 01/29/2025 2:23 PM CDT IMPRESSION: Bony changes of sickle cell as described above. No acute chest findings. EVY FUENTES MD Narrative 01/29/2025 2:23 PM CDT Chest 2 views INDICATION: Sickle cell with chest pain COMPARISON: 01/09/2025 No new consolidation or nodule. Heart size normal. Increased density at the crown of each humeral head again noted and also as seen on recent chest CT pulmonary angiogram 625 consistent with a vascular process in this location. There is one vertebral body in the mid to lower thoracic spine showing some superior and inferior plate concavity which suggests some focal prepped microvascular infarct. This is at approximately T10. The markedly atrophic spleen as seen on the recent CT is not well identified on the PA view due to its very small size and also not well-seen on the lateral view again due to its very small size an relative decreased spatial resolution compared to CT scanning. Procedure Note Evy Fuentes MD - 01/29/2025 Chest 2 views INDICATION: Sickle cell with chest pain COMPARISON: 01/09/2025 No new consolidation or nodule. Heart size normal. Increased density at the crown of each humeral head again noted and also as seen on recent chest CT pulmonary angiogram 625 consistent with a vascular process in this location. There is one vertebral body in the mid to lower thoracic spine showing some superior and inferior plate concavity which suggests some focal prepped microvascular infarct. This is at approximately T10. The markedly atrophic spleen as seen on the recent CT is not well identified on the PA view due to its very small size and also not well-seen on the lateral view again due to its very small size an relative decreased spatial resolution compared to CT scanning. IMPRESSION: Bony changes of sickle cell as described above. No acute chest findings. EVY FUENTES MD Payal Arriaga DO IMG DIAGNOSTIC IMAGING ORDERA BLES Final Result * (ABNORMAL) RBC and Platelet Morphology (01/29/2025 1:51 PM CDT) RBC Morphology Confirmed RBC Indices 01/29/2025 3:38 PM CDT [facility] Platelet Assessment Automated Count Confirmed. Platelet morphology is normal. Automated Count Confirmed. Platelet morphology is normal. 01/29/2025 3:38 PM CDT [facility] Polychromasia Slight(A) None Seen 01/29/2025 3:38 PM CDT [facility] Sickle Cells Slight(A) None Seen 01/29/2025 3:38 PM CDT [facility] Target Cells Slight(A) None Seen 01/29/2025 3:38 PM CDT [facility] Blood BLOOD SPECIMEN / Unknown Venipuncture / Unknown 01/29/2025 1:51 PM CDT 01/29/2025 2:00 PM CDT Payal Arriaga DO LAB - BLOOD ORDERABLES Final Result [facility] [place] [facility] [address], [address] [phone] * Extra Red Top Tube (01/29/2025 1:51 PM CDT) Hold Specimen [facility] 01/29/2025 3:01 PM CDT [facility] Blood BLOOD SPECIMEN / Unknown Venipuncture / Unknown 01/29/2025 1:51 PM CDT 01/29/2025 2:00 PM CDT us Payal Arriaga DO LAB - BLOOD ORDERABLES Final Result LABORATORY [facility] [place] [facility] [address] [facility], [address] * Extra Blue Top Tube (01/29/2025 1:51 PM CDT) [facility] Signature Hold Specimen [facility] 01/29/2025 3:01 PM CDT [facility] Blood BLOOD SPECIMEN / Unknown Venipuncture / Unknown 01/29/2025 1:51 PM CDT 01/29/2025 2:00 PM CDT us Payal Arriaga DO LAB - BLOOD ORDERABLES Final Result [facility]ORATORY [facility] [place] [facility] [address] [facility], [address] * (ABNORMAL) CBC with platelets and differential (01/29/2025 1:51 PM CDT) Pathologist [facility] WBC Count 14.09(H) 4.00 - 11.00 10e3/uL 01/29/2025 3:38 PM CDT [facility] RBC Count 2.39(L) 3.80 - 5.20 10e6/uL 01/29/2025 3:38 PM CDT [facility] Hemoglobin 8.2(L) 11.7 - 15.7 g/dL 01/29/2025 3:38 PM CDT [facility] Hematocrit 24.0(L) 35.0 - 47.0 % 01/29/2025 3:38 PM CDT [facility] MCV 100.4(H) 78.0 - 100.0 fL 01/29/2025 3:38 PM CDT [facility] MCH 34.3(H) 26.5 - 33.0 pg 01/29/2025 3:38 PM CDT [facility] MCHC 34.2 31.5 - 36.5 g/dL 01/29/2025 3:38 PM CDT [facility] RDW 18.4(H) 10.0 - 15.0 % 01/29/2025 3:38 PM CDT [facility] Platelet Count 409 150 - 450 10e3/uL 01/29/2025 3:38 PM CDT [facility] % Neutrophils 63.5 % 01/29/2025 3:38 PM CDT [facility] % Lymphocytes 21.5 % 01/29/2025 3:38 PM CDT [facility] % Monocytes 12.0 % 01/29/2025 3:38 PM CDT [facility] % Eosinophils 0.6 % 01/29/2025 3:38 PM CDT [facility] % Basophils 1.1 % 01/29/2025 3:38 PM CDT [facility] % Immature Granulocytes 1.3 % 01/29/2025 3:38 PM CDT [facility] NRBCs per 100 WBC 2.1(H) <1.0 /100 01/29/2025 3:38 PM CDT [facility] Absolute Neutrophils 8.94(H) 1.60 - 8.30 10e3/uL 01/29/2025 3:38 PM CDT [facility] Absolute Lymphocytes 3.03 0.80 - 5.30 10e3/uL 01/29/2025 3:38 PM CDT [facility] Absolute Monocytes 1.69(H) 0.00 - 1.30 10e3/uL 01/29/2025 3:38 PM CDT [facility] Absolute Eosinophils 0.08 0.00 - 0.70 10e3/uL 01/29/2025 3:38 PM CDT [facility] Absolute Basophils 0.16 0.00 - 0.20 10e3/uL 01/29/2025 3:38 PM CDT [facility] Absolute Immature Granulocytes 0.19 <=0.40 10e3/uL 01/29/2025 3:38 PM CDT [facility] Absolute NRBCs 0.29 10e3/uL 01/29/2025 3:38 PM CDT [facility] Blood BLOOD SPECIMEN / Unknown Venipuncture / Unknown 01/29/2025 1:51 PM CDT 01/29/2025 2:00 PM CDT Payal Arriaga DO LAB - BLOOD ORDERABLES Final Result [facility] [place] [facility] [address], [address] [place] [phone] * (ABNORMAL) NT-proBNP (01/29/2025 1:51 PM CDT) NT-proBNP 319(H) 0 - 178 pg/mL 01/29/2025 2:46 PM CDT [facility] Comment: Starting on 08/30/2024, [facility] laboratory began flagging abnormal values for plasma NT-proBNP results for adults using age-specific reference ranges instead of clinical cut-points/thresholds (see interpretation comment below for clinical threshold values) as part of a test standardization effort. Pediatric abnormal values were already previously flagged using age-specific reference intervals, which are not currently changing. The test methodology remains unchanged, and previous results performed with this methodology can be interpreted with the updated reference intervals. [facility] Pediatric (boys and girls) Reference Ranges in pg/mL * 0 up to 3 days: 0 - 94574 3 days up to 1 month: 0 - 6500 1 month up to 1 year: 0 - 1000 2 up to 6 years: 0 - 330 6 up to 18 years: 0 - 240 Male Reference Ranges in pg/mL 18-44 years: 0 - 93 45-54 years: 0 - 138 55-64 years: 0 - 177 65-74 years: 0 - 229 75 years or older: 0 - 852 Female Reference Ranges in pg/mL 8-44 years: 0 - 178 45-54 years: 0 - 192 55-64 years: 0 - 226 65-74 years: 0 - 353 75 years or older: 0 - 624 Reference ranges in adults reflect 95th percentiles for NT-pro-BNP levels in patients without congestive heart failure (CHF). Knowledge of each individual patient's NT-proBNP range may be more useful than using similar cut-points for every patient. For adult chronic CHF patients according to [employer] [employer] ([place]HA) Functional Class, the mean NT-proBNP concentration is as following (5th and 95th percentile values respectively displayed in parentheses): Class I: 1016 pg/mL (33-3410) Class II: 1666 pg/mL (103-6567) Class III: 3029 pg/mL (126-47478) Class IV: 3465 pg/mL (148-35663) Clinical thresholds for acute (emergency department) settings: < 300 pg/mL effectively rules out acute decompensated heart failure (ADHF), with 99% negative predictive value. The following values may rule in potential acute decompensated heart failure (ADHF) in individuals (with a PPV of 50-60%): Under 50 years: >450 pg/mL Between 50-75 years: >900 pg/mL Over 75 years: >1800 pg/mL Among patients with dyspnea, NT-proBNP is highly sensitive for detection of acute CHF. Elevations in NT-proBNP levels may be observed in states other than left ventricular congestive failure including: acute coronary syndromes, right heart strain/failure (including pulmonary embolism and cor pulmonale), critical illness, and renal failure. Falsely low NT-proBNP in CHF patients may be observed in increased body mass index. * References: (1) Paddy Gunderson et al. Pediatr Cardiol 30:3-8, 2008. Blood BLOOD SPECIMEN / Unknown Venipuncture / Unknown 01/29/2025 1:51 PM CDT 01/29/2025 2:00 PM CDT us Payal Arriaga DO LAB - BLOOD ORDERABLES Final Result LABORATORY [facility] Core Lab [address], [address] [place] [address], [facility] * (ABNORMAL) Reticulocyte count (01/29/2025 1:51 PM CDT) Pathologist [facility] % Reticulocyte 13.92(H) 0.50 - 2.00 % 01/29/2025 2:11 PM CDT [facility] Absolute Reticulocyte 0.3327(H) 0.0250 - 0.0950 10e6/uL 01/29/2025 2:11 PM CDT [facility] Blood BLOOD SPECIMEN / Unknown Venipuncture / Unknown 01/29/2025 1:51 PM CDT 01/29/2025 2:00 PM CDT us Payal Arriaga DO LAB - BLOOD ORDERABLES Final Result [facility] [place] [facility] [address], [address] [place] [phone] * (ABNORMAL) Basic Metabolic Panel (Limited Occurrences) (01/29/2025 1:51 PM CDT) Sodium 140 135 - 145 mmol/L 01/29/2025 2:48 PM CDT [facility] Potassium 4.9 3.4 - 5.3 mmol/L 01/29/2025 2:48 PM CDT [facility] Comment:Specimen slightly he molyzed. The reported potassium value may be falsely elevated. Analysis of a non-hemolyzed specimen (i.e. re-draw) may result in a lower potassium value. Chloride 104 98 - 107 mmol/L 01/29/2025 2:48 PM CDT [facility] Carbon Dioxide (CO2) 20(L) 22 - 29 mmol/L 01/29/2025 2:48 PM CDT [facility] Anion Gap 16(H) 7 - 15 mmol/L 01/29/2025 2:48 PM CDT [facility] Urea Nitrogen 6.0 6.0 - 20.0 mg/dL 01/29/2025 2:48 PM CDT [facility] Creatinine 0.67 0.51 - 0.95 mg/dL 01/29/2025 2:48 PM CDT [facility] GFR Estimate >90 >60 mL/min/1.7 3m2 01/29/2025 2:48 PM CDT [facility] Comment:eGFR calculated usin g 2020 CKD-EPI equation. Calcium 9.4 8.8 - 10.4 mg/dL 01/29/2025 2:48 PM CDT [facility] Glucose 89 70 - 99 mg/dL 01/29/2025 2:48 PM CDT [facility] Blood BLOOD SPECIMEN / Unknown Venipuncture / Unknown 01/29/2025 1:51 PM CDT 01/29/2025 2:00 PM CDT Payal Arriaga LAB - BLOOD ORDERABLES Final Result [facility] [facility] [address] [facility], [address] [phone] * EKG 12-lead, tracing only (01/29/2025 1:17 PM CDT) Systolic Blood Pressure mmHg RADIOLOGY RESULTS Diastolic Blood Pressure mmHg RADIOLOGY RESULTS Ventricular Rate 79 BPM RAD IOLOGY RESULTS Atrial Rate 79 BPM RADIOLOG Y RESULTS NH Interval 152 ms RADIOLOG Y RESULTS QRS Duration 84 ms RADIOLO GY RESULTS QT 372 ms RADIOLOGY RESULTS QTc 426 ms RADIOLOGY RESULTS P [place] 76 degrees RADIOLOGY RESULTS R AXIS 72 degrees RADIOLOGY RESULTS T [place] 47 degrees RADIOLOGY RESULTS Interpretation ECG Unconfirmed report - interpretation of this ECG is computer generated - see medical record for final interpretation Sinus rhythm Normal ECG Confirmed by - EMERGENCY ROOM, PHYSICIAN ([id number]), film and video editor Nivia Willson ([id number]) on 01/29/2025 3:41:55 PM RADIOLOGY RESULTS 01/29/2025 1:17 PM CDT 01/29/2025 3:41 PM CDT Payal Arriaga ECG ORDERABLES Edited Result - Final RADIOLOGY RESULTS documented in this encounter Visit Diagnoses Diagnosis Sickle cell disease with crisis (H)- Primary Hb-SS disease with crisis Sickle cell disease with crisis (H) Hb-SS disease with crisis documented in this encounter Admitting Diagnoses Diagnosis Sickle cell disease with crisis [...] pain or per patient request, Starting on Wed01/29/25 at 1722, Alternate with ibuprofen if ordered. Maximum acetaminophen dose from all sources= 75 mg/kg/day or 4 g/day. acetaminophen (TYLENOL) tablet 650 mg 650 mg, Oral, EVERY 4 HOURS PRN, mild pain, other, and adjunct with moderate or severe pain or per patient request, Starting on Wed01/29/25 at 1722, Alternate with ibuprofen if ordered. Maximum acetaminophen dose from all sources = 75 mg/kg/day not to exceed 4 grams/day. apixaban ANTICOAGULANT (ELIQUIS) tablet 5 mg 5 mg, Oral, 2 TIMES DAILY, First dose on Wed01/29/25 at 2000, Indications: DVT-PE TreatmentIndications:DVT-PE Treatment $Given 01/30/2025 7:24 AM CDT 5 mg $Given 01/29/2025 7:25 PM CDT 5 mg diphenhydrAMINE (BENADRYL) capsule 25-50 mg 25-50 mg, Oral, EVERY 6 HOURS PRN, itching, Starting on Wed01/29/25 at 1722 $Given 01/30/2025 12:51 AM CDT 25 mg docusate sodium (COLACE) capsule 100 mg 100 mg, Oral, 2 TIMES DAILY PRN, constipation, Starting on Wed01/29/25 at 1825, If the patient has multiple PO bowel stimulant agents ordered PRN, offer in the following order per policy. Move to the next available step if the earlier step is ineffective. Step 1 - senna; Step 2 - bisacodyl; Step 3 - milk of magnesia; Step 4 - polyethylene glycol; Step 5 - magnesium citrate. Hold for loose stools. FLUoxetine (PROzac) capsule 40 mg 40 mg, Oral, DAILY, First dose on Wed01/30/25 at 0800 $Given 01/30/2025 7:24 AM CDT 40 mg folic acid (FOLVITE) tablet 1 mg 1 mg, Oral, DAILY, First dose on Wed01/30/25 at 0800 $Given 01/30/2025 7:24 AM CDT 1 mg hydromorphone (DILAUDID) injection 2 mg 2 mg, Intravenous, EVERY 1 HOUR PRN, moderate pain, severe pain, Starting on Wed01/29/25 at 1309, For 3 doses, Notify the provider to assess for uncontrolled pain or analgesic side effects. Hold while on IV HOME HEALTH OUTREACH COORDINATOR or with regular IV opioid dosing. $Given 01/29/2025 4:06 PM CDT 2 mg $Given 01/29/2025 2:57 PM CDT 2 mg $Given 01/29/2025 1:57 PM CDT 2 mg hydromorphone (DILAUDID) injection 2 mg 2 mg, Intravenous, EVERY 3 HOURS PRN, moderate pain, Starting on Wed01/29/25 at 1748 $Given 01/29/2025 6:26 PM CDT 2 mg hydromorphone (DILAUDID) injection 2 mg 2 mg, Intravenous, EVERY 2 HOURS PRN, moderate pain, Starting on Wed01/29/25 at 1856 $Given 01/30/2025 5:11 AM CDT 2 mg $Given 01/30/2025 2:55 AM CDT 2 mg $Given 01/30/2025 12:49 AM CDT 2 mg hydromorphone (DILAUDID) injection 2 mg 2 mg, Intravenous, EVERY 3 HOURS PRN, moderate pain, Starting on Wed01/30/25 at 0524 $Given 01/30/2025 7:24 AM CDT 2 mg hydroxyurea (HYDREA) capsule 1,000 mg 1,000 mg, Oral, 2 TIMES DAILY, First dose on Wed01/29/25 at 2000, Indications: sickle cell, Do not crush May require hepatic and/or renal dose or frequency adjustments. See reference link for guidelines.Indications:sickle cell $Given 01/30/2025 7:25 AM CDT 1,000 mg $Given 01/29/2025 8:44 PM CDT 1,000 mg lactated ringers BOLUS 1,000 mL Intravenous, 1,000 mL, ONCE, at 500 mL/hr, Administer over 2 Hours, On Wed01/29/25 at 1310, For 1 dose $New Bag 01/29/2025 2:00 PM CDT 1,000 mLs 500 mL/hr lactated ringers infusion at 75 mL/hr, Intravenous, CONTINUOUS, Starting on Wed01/29/25 at 1825, Until Wed01/30/25 at 1101 Rate/Dose Verify 01/30/2025 7:16 AM CDT 75 mL/hr Rate/Dose Verify 01/30/2025 12:50 AM CDT 75 mL/ hr $New Bag 01/29/2025 8:47 PM CDT 75 mL/hr multivitamin, therapeutic (THERA-VIT) tablet 1 tablet 1 tablet, Oral, DAILY, First dose on Wed01/30/25 at 0800 $Given 01/30/2025 7:24 AM CDT 1 tablet ondansetron (ZOFRAN ODT) ODT tab 8 mg 8 mg, Oral, EVERY 8 HOURS PRN, nausea/vomiting - 1st line, Starting on Wed01/29/25 at 1826 ondansetron (ZOFRAN) injection 8 mg 8 mg, Intravenous, EVERY 30 MIN PRN, nausea/vomiting - 1st line, Administer over 2-5 Minutes, Starting on Wed01/29/25 at 1308, For 3 doses, May repeat in 30 minutes as needed, up to 3 doses. $Given 01/29/2025 1:59 PM CDT 8 mg ondansetron (ZOFRAN) injection 8 mg 8 mg, Intravenous, EVERY 8 HOURS PRN, nausea/vomiting - 1st line, Administer over 2-5 Minutes, Starting on Wed01/29/25 at 1826 $Given 01/30/2025 5:10 AM CDT 8 mg sennosides (SENOKOT) tablet 8.6 mg 8.6 mg, Oral, 2 TIMES DAILY PRN, constipation, Starting on Wed01/29/25 at 1825, If the patient has multiple PO bowel stimulant agents ordered PRN, offer in the following order per policy. Move to the next available step if the earlier step is ineffective. Step 1 - senna; Step 2 - bisacodyl; Step 3 - milk of magnesia; Step 4 - polyethylene glycol; Step 5 - magnesium citrate. Hold for loose stools. sodium chloride (PF) 0.9% PF flush 3 mL 3 mL, Intracatheter, EVERY 8 HOURS SCHEDULED, First dose on Wed01/29/25 at 2200, to lock peripheral IV dormant line $Given 01/30/2025 7:24 AM CDT 3 m Ls documented in this encounter Active and Recently Administered Medications Times are shown in CDT. Scheduled Medication Order 01/28/2025 01/29/2025 01/30/2025 apixaban ANTICOAGULANT (ELIQUIS) tablet 5 mg 5 mg, Oral, 2 TIMES DAILY, First dose on Wed01/29/25 at 1999, Indications: DVT-PE Treatment 1924 ($Given - Provider: Terell Jacobo RN) 723 ($Given - Provider: Terell Jacobo RN) FLUoxetine (PROzac) capsule 40 mg 40 mg, Oral, DAILY, First dose on Wed01/30/25 at 0800 07 ($Given - Provider: Terell Jacobo RN) folic acid (FOLVITE) tablet 1 mg 1 mg, Oral, DAILY, First dose on Wed01/30/25 at 0800 07 ($Given - Provider: Terell Jacobo, SOFIA) hydroxyurea (HYDREA) capsule 1,000 mg 1,000 mg, Oral, 2 TIMES DAILY, First dose on Wed01/29/25 at 1999, Indications: sickle cell, Do not crush May require hepatic and/or renal dose or frequency adjustments. See reference link for guidelines. 2043 ($Given - Provider: Terell Jacobo RN) 724 ($Given - Provider: Terell Jacobo RN) lactated ringers BOLUS 1,000 mL (COMPLETED) Intravenous, 1,000 mL, ONCE, at 500 mL/hr, Administer over 2 Hours, On Wed01/29/25 at 1310, For 1 dose 1400 ($New Bag - Provider: Marguerite Jackson, SOFIA)1613 (Stopped - Provider: Marguerite Jcakson RN) multivitamin, therapeutic (THERA-VIT) tablet 1 tablet 1 tablet, Oral, DAILY, First dose on Wed01/30/25 at 0800 0724 ($Given - Provider: Terell Jacobo, SOFIA) sodium chloride (PF) 0.9% PF flush 3 mL 3 mL, Intracatheter, EVERY 8 HOURS SCHEDULED, First dose on Wed01/29/25 at 2200, to lock peripheral IV dormant line 2102 (Not Given - Provider: Terell Jacobo RN - Reason: IV Infusing) 723 ($Given - Provider: Terell Jacobo RN) Continuous Medication Order 01/28/2025 01/29/2025 01/30/2025 lactated ringers infusion at 75 mL/hr, Intravenous, CONTINUOUS, Starting on Wed01/29/25 at 1825, Until Wed01/30/25 at 1101 2047 ($New Bag - Provider: Terell Jacobo RN)2216 (Not Given - Provider: Terell Jacobo RN - Reason: Other - Comment: started later) 0050 (Rate/Dose Verify - Provider: Miguel Angel John RN)0716 (Rate/Dose Verify - Provider: Terell Jacobo RN) PRN Medication Order 01/28/2025 01/29/2025 01/30/2025 acetaminophen (TYLENOL) Suppository 650 mg(Linked Group 1) 650 mg, Rectal, EVERY 4 HOURS PRN, mild pain, other, and adjunct with moderate or severe pain or per patient request, Starting on Wed01/29/25 at 1722, Alternate with ibuprofen if ordered. Maximum acetaminophen dose from all sources= 75 mg/kg/day or 4 g/day. acetaminophen (TYLENOL) tablet 650 mg(Linked Group 1) 650 mg, Oral, EVERY 4 HOURS PRN, mild pain, other, and adjunct with moderate or severe pain or per patient request, Starting on Wed01/29/25 at 1722, Alternate with ibuprofen if ordered. Maximum acetaminophen dose from all sources = 75 mg/kg/day not to exceed 4 grams/day. diphenhydrAMINE (BENADRYL) capsule 25-50 mg 25-50 mg, Oral, EVERY 6 HOURS PRN, itching, Starting on Wed01/29/25 at 1722 0051 ($Given - Provider: Miguel Angel John RN) docusate sodium (COLACE) capsule 100 mg 100 mg, Oral, 2 TIMES DAILY PRN, constipation, Starting on Wed01/29/25 at 1825, If the patient has multiple PO bowel stimulant agents ordered PRN, offer in the following order per policy. Move to the next available step if the earlier step is ineffective. Step 1 - senna; Step 2 - bisacodyl; Step 3 - milk of magnesia; Step 4 - polyethylene glycol; Step 5 - magnesium citrate. Hold for loose stools. hydromorphone (DILAUDID) injection 2 mg (COMPLETED) 2 mg, Intravenous, EVERY 1 HOUR PRN, moderate pain, severe pain, Starting on Wed01/29/25 at 1309, For 3 doses, Notify the provider to assess for uncontrolled pain or analgesic side effects. Hold while on IV HOME HEALTH OUTREACH COORDINATOR or with regular IV opioid dosing. 1357 ($Given - Provider: Marguerite Jackson, RN)1457 ($Given - Provider: Marguerite Jackson, RN)1606 ($Given - Provider: Marguerite Jackson RN) hydromorphone (DILAUDID) injection 2 mg (CANCELED) 2 mg, Intravenous, EVERY 3 HOURS PRN, moderate pain, Starting on Wed01/29/25 at 1748 1826 ($Given - Provider: Danica Mccloud RN) hydromorphone (DILAUDID) injection 2 mg (CANCELED) 2 mg, Intravenous, EVERY 2 HOURS PRN, moderate pain, Starting on Wed01/29/25 at 1856 2042 ($Given - Provider: Terell Jacobo RN)2247 ($Given - Provider: Terell Jacobo RN) 0049 ($Given - Provider: Miguel Angel John RN)0255 ($Given - Provider: Miguel Angel John RN)0511 ($Given - Provider: Shaunna Lazo RN) hydromorphone (DILAUDID) injection 2 mg 2 mg, Intravenous, EVERY 3 HOURS PRN, moderate pain, Starting on Wed01/30/25 at 0524 0724 ($Given - Provider: Terell Jacobo RN) lidocaine (LMX4) cream Topical, EVERY 1 HOUR PRN, pain, with VAD insertion, Starting on Wed01/29/25 at 1722, Apply at least 30 minutes prior to [...] mild pain with VAD insertion, Starting on Wed01/29/25 at 1722, MAX dose 1 mL subcutaneous OR intradermal along the side of the vein in divided doses as needed for VAD insertion. Do NOT give if patient has a history of allergy to any local anesthetic or any horacio product. Do NOT use both lidocaine intradermal/subcutaneous injection and the lidocaine cream on the same site. ondansetron (ZOFRAN ODT) ODT tab 8 mg(Linked Group 2) 8 mg, Oral, EVERY 8 HOURS PRN, nausea/vomiting - 1st line, Starting on Wed01/29/25 at 1826 0510 (See Alternativ e - Provider: Shaunna Lazo RN) ondansetron (ZOFRAN) injection 8 mg (CANCELED) 8 mg, Intravenous, EVERY 30 MIN PRN, nausea/vomiting - 1st line, Administer over 2-5 Minutes, Starting on Wed01/29/25 at 1308, For 3 doses, May repeat in 30 minutes as needed, up to 3 doses. 1359 ($Given - Provider: Marguerite Jackson RN) ondansetron (ZOFRAN) injection 8 mg(Linked Group 2) 8 mg, Intravenous, EVERY 8 HOURS PRN, nausea/vomiting - 1st line, Administer over 2-5 Minutes, Starting on Wed01/29/25 at 1826 0510 ($Given - Provider: Shaunna Lazo RN) Patient is already receiving anticoagulation with heparin, enoxaparin (LOVENOX), warfarin (COUMADIN) or other anticoagulant medication CONTINUOUS PRN, Starting on Wed01/29/25 at 1722, Until Wed01/30/25 at 1101 sennosides (SENOKOT) tablet 8.6 mg 8.6 mg, Oral, 2 TIMES DAILY PRN, constipation, Starting on Wed01/29/25 at 1825, If the patient has multiple PO bowel stimulant agents ordered PRN, offer in the following order per policy. Move to the next available step if the earlier step is ineffective. Step 1 - senna; Step 2 - bisacodyl; Step 3 - milk of magnesia; Step 4 - polyethylene glycol; Step 5 - magnesium citrate. Hold for loose stools. sodium chloride (PF) 0.9% PF flush 3 mL 3 mL, Intracatheter, EVERY 1 MIN PRN, line flush, other, to ensure patency or to lock dormant line, Starting on Wed01/29/25 at 1722 Linked Groups Order Group 1: acetaminophen (TYLENOL) tablet 650 mgJump to med 650 mg, Oral, EVERY 4 HOURS PRN, mild pain, other, and adjunct with moderate or severe pain or per patient request, Starting on Wed01/29/25 at 1722, Alternate with ibuprofen if ordered. Maximum acetaminophen dose from all sources = 75 mg/kg/day not to exceed 4 grams/day. Or acetaminophen (TYLENOL) Suppository 650 mgJump to med 650 mg, Rectal, EVERY 4 HOURS PRN, mild pain, other, and adjunct with moderate or severe pain or per patient request, Starting on Wed01/29/25 at 1722, Alternate with ibuprofen if ordered. Maximum acetaminophen dose from all sources= 75 mg/kg/day or 4 g/day. Group 2: ondansetron (ZOFRAN ODT) ODT tab 8 mgJump to med 8 mg, Oral, EVERY 8 HOURS PRN, nausea/vomiting - 1st line, Starting on Wed01/29/25 at 1826 Or ondansetron (ZOFRAN) injection 8 mgJump to med 8 mg, Intravenous, EVERY 8 HOURS PRN, nausea/vomiting - 1st line, Administer over 2-5 Minutes, Starting on Wed01/29/25 at 1826 documented in this encounter Care Teams Optical Designer Relationship Specialty Start Date End Date Veronica Joseph MD [address] [place] [address] PCP - General Family Medicine 06/18/24 Mor Ramsey Medical Student 04/03/24 Case Samuel MD [address] [facility] [address], [address] [place], [place] [phone] Assigned Pediatric Specialist Provider 05/18/24 Juhi Benson, RN Specialty Journal[employer] Hematology & Oncology 05/29/24 Olinda Vora APRN PUNCH MACHINE OPERATOR [address] [place] [id number] Assigned Cancer Care Provider 08/16/24 Stiven Stanley LP [address] [place] [address] Psychologist PSYCHOLOGIST CLINICAL 10/25/24 Star Galarza MD [facility] [place], [place] [id number] Home Infusion Following Provider Infectious Diseases 11/07/24 documented as of this encounter
--- OUTSIDE RECORDS SUMMARY | 2025-02-01 19:21 | XMS_ITS | Encounter Summary ---
Author Organization [facility] Address [address] [place] [address]. [place] [address] Care Team Providers Care Back Hoe Machine Operator Name Role Phone Roxy Mor Unavailable Unavailable Case Samuel MD Unavailable [phone] Juhi Benson RN Unavailable Unavailable Veronica Joseph MD Primary Care Provider [phone] Olinda Vora APRN STAPLE CUTTER Unavailable [phone] Stiven Stanley LP Unavailable Star Galarza MD Unavailable [phone] Reason for Visit * Reason Comments Sickle Cell Pain Crisis Encounter Details Date Type Department Care Team (Late st Contact Info) Description 02/01/2025 7:21 PM CDT - 02/01/2025 9:45 PM CDT Emergency [facility] Emergency Department [address] [place] [phone] Payal Arriaga, [facility] [place] [address] Sickle cell disease with crisis (H) (Primary [...] Legal Sex Female 8:25 AM RESIDENTIAL SALES REPRESENTATIVE Gender Identity Not on file Sexual Orientation Not on file documented as of this encounter Last Filed Vital Signs Vital Sign Reading Time Taken Comments Blood Pressure 113/76 02/01/2025 7:17 PM CDT Pulse 105 02/01/2025 7:17 PM CDT Temperature 36.8 C (98.3 F) 02/01/2025 7:17 PM CDT Respiratory Rate 18 02/01/2025 7:17 PM CDT Oxygen Saturation 99% 02/01/2025 7:17 PM CDT Inhaled Oxygen Concentration - - Weight - - Height - - Body Mass Index - - documented in this encounter Discharge Instructions * Attachments The following attachments cannot be sent through Care Everywhere. * Sickle Cell Crisis (Georgian) documented in this encounter Medications at Time [...] naloxone (NARCAN) 4 MG/0.1ML nasal spray [place] 1 spray (4 mg) into one nostril [...] 02/06/20 25 documented as of this encounter ED Notes * Payal Arriaga, DO - 02/01/2025 7:22 PM CDT Images from the original note were not included. Verbal consent was obtained if AI documentation was used in the creation of this note. 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 Patient is reporting pain consistent with previous sickle cell crisis in her back and bilateral legs. She reports no fevers chills lightheadedness syncope chest pain shortness of breath nausea vomiting diarrhea or other infectious symptoms. She has been taking her home medications without any pain relief. Patient says that she was very active today and outside constantly which often exacerbates the pain crisis Past Medical History Past Medical History: Diagnosis [...] all other systems negative. Physical Exam BP: 113/76 Pulse: 105 Temp: 98.3 ??F (36.8 ??C) Resp: 18 SpO2: 99 % Physical Exam Gen: Awake and alert, interactive and in no acute distress Chest: No tenderness to palpation, no crepitus [...] sec ED Course, Procedures, & Data Procedures Medications hydromorphone (DILAUDID) injection 2 mg (2 mg Intravenous $Given 02/01/252131) sodium chloride 0.9% BOLUS 1,000 mL (0 mLs Intravenous Stopped 02/01/252127) ketorolac (TORADOL) injection 15 mg (15 mg Intravenous $Given 02/01/252037) Critical care was not performed. Medical Decision Making The patient's presentation was of low complexity (a stable chronic illness). The patient's evaluation involved: history and exam without other MDM data elements The patient's management necessitated high risk (a parenteral controlled substance). Assessment & Plan Patient is well-known to myself in the emergency department. She often presents for similar pain crises. At this point I do not have concern for occult infectious process metabolic derangement acute chest syndrome or other emergent process. Will treat per her pain plan After several doses of pain meds patient is feeling much better. She would like to go home. I have reviewed the patient's discharge instructions [...] diagnoses: Sickle cell disease with crisis (H) Payal Charlton [facility] 02/01/2025 Payal Arriaga DO 02/01/257 * Prakash Taveras RN - 02/01/2025 7:19 PM CDT Pt ambulatory to triage c/o sickle cell pain crisis. Reports pain started earlier today and reportspain 01/03. Took 4mg dilaudid earlier. BP 113/76 Pulse 105 Temp 98.3 ??F (36.8 ??C) (Oral) Resp 18 LMP 01/12/2025 (Exact Date) SpO2 99% Triage Assessment (Adult) Row Name 02/01/251917 Triage Assessment Airway WDL WDL Respiratory WDL Respiratory WDL WDL Skin Circulation/Temperature WDL Skin Circulation/Temperature WDL WDL Cardiac WDL Cardiac WDL WDL Peripheral/Neurovascular WDL Peripheral Neurovascular WDL WDL Cognitive/Neuro/Behavioral WDL Cognitive/Neuro/Behavioral WDL WDL [place] Coma Scale Best Eye Response 4-->(E4) spontaneous Best Motor Response 6-->(M6) obeys commands Best Verbal Response 5-->(V5) oriented [place] Coma Scale Score 15 documented in this encounter Plan of Treatment Upcoming Encounters Date Type Department Care Team (Late st Contact Info) Description 02/15/2025 10:30 AM CDT Lab [facility] Cancer [address] [phone] Olinda Vora APRN STAPLE CUTTER [address] [place] [id number] 02/15/2025 11:00 AM CDT Oncology Visit [facility] Cancer [address] [phone] Olinda Vora APRN STAPLE CUTTER [address] [place] [address] 04/09/2025 3:00 PM RESIDENTIAL SALES REPRESENTATIVE Lab [facility] Cancer [facility] [address] [place] [phone] Case Samuel MD [address] [place] [address] [address], [address] [place], [place] [address] 04/09/2025 3:30 PM RESIDENTIAL SALES REPRESENTATIVE Oncology Visit [facility] [address] [place] [phone] Case Samuel MD [address] [facility] [address], [address] [place], [place] [phone] documented as of this encounter Goals Goal [...] HOUR PRN, severe pain, Starting on Citlali 02/01/25 at 1936, For 3 doses $Given 02/01/2025 9:32 PM CDT 2 mg $Given 02/01/2025 8:38 PM CDT 2 mg $Given 02/01/2025 7:49 PM CDT 2 mg ketorolac (TORADOL) injection 15 mg 15 mg, Intravenous, ONCE, On Citlali 02/01/25 at 2000, For 1 dose, Can cause pain on injection. If ordered intravenously (IV) : administer through a running maintenance fluid over 1 minute followed by a flush. If patient complains of pain on injection, may dilute 15-30 mg in 5 mL and push over 1 to 2 minutes. $Given 02/01/2025 8:38 PM CDT 15 mg sodium chloride 0.9% BOLUS 1,000 mL Intravenous, 1,000 mL, ONCE, at 1,000 mL/hr, Administer over 1 Hours, On Citlali 02/01/25 at 1940, For 1 dose $New Bag 02/01/2025 7:49 PM CDT 1,000 mLs 1000 mL/hr documented in this encounter Active and Recently Administered Medications Times are shown in CDT. Scheduled Medication Order 01/30/2025 01/31/2025 02/01/2025 ketorolac (TORADOL) injection 15 mg (COMPLETED) 15 mg, Intravenous, ONCE, On Citlali 02/01/25 at 2000, For 1 dose, Can cause pain on injection. If ordered intravenously (IV) : administer through a running maintenance fluid over 1 minute followed by a flush. If patient complains of pain on injection, may dilute 15-30 mg in 5 mL and push over 1 to 2 minutes. 2037 ($Given - Provi nas: Andrea Salinas RN) sodium chloride 0.9% BOLUS 1,000 mL (COMPLETED) Intravenous, 1,000 mL, ONCE, at 1,000 mL/hr, Administer over 1 Hours, On Citlali 02/01/25 at 1940, For 1 dose 1948 ($New Bag - Pro vider: Andrea Salinas RN)2127 (Stopped - Provider: Andrea Salinas RN) PRN Medication Order 01/30/2025 01/31/2025 02/01/2025 hydromorphone (DILAUDID) injection 2 mg (COMPLETED) 2 mg, Intravenous, EVERY 1 HOUR PRN, severe pain, Starting on Citlali 02/01/25 at 1936, For 3 doses 1948 ($Given - Provi nas: Andrea Salinas RN)2037 ($Given - Provider: Andrea Salinas RN)2132 ($Given - Provider: Andrea Salinas RN) documented in this encounter Care Teams Back Hoe Machine Operator Relationship Specialty Start Date End Date Veronica Joseph MD [address] [place] [address] PCP - General Family Medicine 06/18/24 Roxy [facility] Medical Student 04/03/24 Case Samuel MD [address] [facility] [address], [address] [place], [place] [phone] Assigned Pediatric Specialist Provider 05/18/24 Juhi Benson, SOFIA Specialty Cut Out And Marking Machine Operator Hematology & Oncology 05/29/24 Olinda Vora APRN STAPLE CUTTER [address] [place], [place] [phone] Assigned Cancer Care Provider 08/16/24 Stiven Stanley LP [address] [place] [address] Psychologist PSYCHOLOGIST CLINICAL 10/25/24 Star Galarza MD [facility] [address] [place], [place] [phone] Home Infusion Following Provider Infectious Diseases 11/07/24 documented as of this encounter
--- OUTSIDE RECORDS SUMMARY | 2025-02-02 18:48 | XMS_ITS | Encounter Summary ---
Author Organization [facility] Address [address] [place] [address]. [place] [address] Care Team Providers Care Manager Digital Name Role Phone RoxyElvirac Unavailable Unavailable Case Samuel MD Unavailable [phone] Juhi Benson RN Unavailable Unavailable Veronica Joseph MD Primary Care Provider [phone] Olinda Vora APRN THERMOSCREW OPERATOR Unavailable [phone] Stiven Stanley Unavailable Star Galarza MD Unavailable [phone] Reason for Visit * Reason Comments Sickle Cell Pain Crisis Patient presents to triage with sickle cell pain mostly in lower extremities and back. 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 Gender Identity Not on file Sexual Orientation Not on file documented as of this encounter Last Filed Vital Signs Vital Sign Reading Time Taken Comments Blood Pressure 108/70 02/02/2025 6:50 PM CDT Pulse 85 02/02/2025 6:50 PM CDT Temperature 37.1 C (98.7 F) 02/02/2025 6:50 PM CDT Respiratory Rate 18 02/02/2025 6:50 PM CDT Oxygen Saturation 96% 02/02/2025 6:50 PM CDT Inhaled Oxygen Concentration - - Weight - - Height - - Body Mass Index - - documented in this encounter Discharge Instructions * Discharge Instructions* Marguerite Burgess MD - 02/02/2025 8:55 PM CDT We understand that you would like to leave at this time. Please remember you can change your mind and we recommend you immediately return to the nearest Emergency Department and especially return with any new or worsening symptoms or concerns. With regards to the updated care plan, we recommend that you speak with your regular Hematology team. Given the weekend there is an on-call Hematology service for emergent needs. The Hospital printing machine operator can be reached by calling [phone]. Once reaching the printing machine operator, you can ask to speak with the ematology team on-call ([facility] Hematology Fellow). * Attachments The following attachments cannot be sent through Care Everywhere. * Sickle Cell Disease ([place]) documented in this encounter Medications at [...] 05/01/2024 naloxone (NARCAN) 4 MG/0.1ML nasal spray [place] 1 spray (4 mg) into one nostril [...] as of this encounter ED Notes * Marilin Kidd RN - 02/02/2025 8:19 PM CDT Bed: [facility] Expected date: Expected time: Means of arrival: Comments: Karey Hernández * Clive Patel RN - 02/02/2025 6:51 PM CDT Patient presents to triage with sickle cell pain mostly in lower extremities and back. Triage Assessment (Adult) Row Name 02/02/25 4072 Triage Assessment Airway WDL WDL Respiratory WDL Respiratory WDL WDL Skin Circulation/Temperature WDL Skin Circulation/Temperature WDL WDL Cardiac WDL Cardiac WDL WDL Peripheral/Neurovascular WDL Peripheral Neurovascular WDL WDL Cognitive/Neuro/Behavioral WDL Cognitive/Neuro/Behavioral WDL WDL * Lynn Estrada RN - 02/02/2025 6:48 PM CDT Bed: [facility] Expected date: Expected time: Means of arrival: Comments: C. G 29 y/o * Marguerite Burgess MD - 02/02/2025 6:03 PM CDT History Chief Complaint Patient presents with Sickle Cell Pain Crisis Patient presents to triage with sickle cell pain mostly in lower extremities and back. KARL Hernández is a 29 year old [...] reminds her of prior sickle cell pain crises, though notes in EMR report may be chronic pain as opposed to acute vaso- occlusive crisis. PRIOR HISTORY REVIEW: Patient was recently admitted from 01/29/10 with acute on chronic pain and possible vaso-occlusivepain crisis. They began care according to pre-existing care plan. It appears in EMR though, Due to21 recent ED visits in the last month for pain crises as well as 3 admissions, her primary sickle cell team was concerned that frequent recent visits are not likely to be her SCD but rather chronic pain, with some root historically in the SCD, so her care plan was updated on 01/30/25. Plan no longer includes IV Dilaudid, now rather includes oral Dilaudid and Robaxin CURRENT PRESENTATION: Patient presents today with what she describes as her regular pain, to the back, legs, arms. Deniesany chest pain or shortness of breath. No traumas or falls. No fevers or chills. No particular joint pain or swelling. No new numbness, tingling or weakness. No recent infections, fevers, chills or other such triggers. No other new symptoms or concerns reported at this time. Full ROS completed w/o additional findings. REVIEW OF SYSTEMS A medically appropriate review of systems was performed with pertinent positives and negatives noted in the HPI. Physical Exam BP: 108/70 Pulse: 85 Temp: 98.7 ??F (37.1 ??C) Resp: 18 SpO2: 96 % Physical Exam CONSTITUTIONAL: Awake and alert. Non-toxic appearance. No acute distress. Normal gait. HENT: - Head: Normocephalic and atraumatic. - [...] Extremities warm and seemingly well perfused. No obvious swelling. NEUROLOGIC: Awake, alert. Not disoriented. No seizure activity. GCS 15 SKIN: Skin is warm and dry. No diaphoresis. No pallor. No rash/acute appearing skin changes noted. PSYCHIATRIC: Normal mood and affect. Speech and behavior normal. Thought processes linear. Cognition and memory are normal. No SI/HI reported. ED Course ED Course as of 02/02/252056Feb 02, 20251921 In review of the EMR, the patient's care plan that I can see is most recently updated on 01/30/2025 and says that that is the most recent date that it was reviewed with the patient. Care plan nowincludes only oral medications. Most recent letter I can see and what the patient has a copy of that she is per producing here was dated 01/18/2025 and that still included the IV option, but that predates the most recent care plan that is currently in the EMR. Patient thinks that this is a mistake and so I am calling Hematology to clarify. Awaiting callback. 1935 Discussed with the Hematology fellow. They are going to call the Hematology attending and try to clarify. 1945 Received call back from Heme. They spoke w/ the Attending and they say we should follow the care plan that is in the EMR as current and to NOT provide IV hydromorphone and do the oral regimen instead. 2045 Most recent care plan (dated 01/30/25) printed and provided to patient 2048 Patient requesting discharge and wanting to leave now w/o any treatment given IV not being offered as per the recommendations for the Heme team. She declines the oral medications. Most recent care plan (dated 01/30/25) printed and provided to patient so she has available and can discuss w/ her Heme team Assessments & Plan (with Medical Decision Making) [...] reminds her of prior sickle cell pain crises, though notes inEMR report may be chronic pain as opposed to acute vaso-occlusive crisis. Clinically, patient appears nontoxic, NAD. Vitals grossly WNL. Otherwise on examination, there is no acute findings on exam. She looks comfortable is able to ambulate well without issue no other acute findings. DDx includes, but not limited to, flare of acute on chronic pain, vaso-occlusive crisis, amongst others. She denies any symptoms for acute chest syndrome and is not having new neurologic symptoms or presentation. PLAN: - Laboratory studies - Pain meds ordered according to updated care plan (oral Dilaudid and Robaxin) - Dispo pending ED Course RESULTS: Labs: - No obvious emergent findings on CMP - Reticulocyte count 17.36%, absolute reticulocytes 0.4739 - hCG negative - WBC of 12.33 is down from previous - Hemoglobin 9.3 is up from previous INTERVENTIONS: - Discussion w/ Hematology - PO Hydromorphone and Robaxin ordered, but both refused by patient and she requested discharge - Most recent Care Plan (dated 01/30/25) printed and provided to patient after discussing w/ Heme RE-EVALUATION: - Pt otherwise continues to do well here in the ED, moving around well, no outward/objective findings for discomfort. No acute issues or apparent concerning changes in vitals or clinical appearance. DISCUSSIONS: - w/ Hematology & Patient: Given the most recent copy the patient is showing us here was from December, but her care plan in the computer was updated as of 01/30/2025, and there is an inconsistency between what the patient is providing and what the computer says, I did contact the Hematology team to discuss. -- The fellow then spoke with the Benign Hematology attending to clarify ED care plan recommendations. They would recommend following the ED care plan that is in the EMR currently, most recently updated on 01/30/2025, and that we NOT provide IV opiates at this time but we could offer her the oral regimen. - This was reviewed with the patient. At that point the patient requested discharge and did not want to try any of the oral options - As the patient was in disagreement with the ED care plan, I did print this off for her to be ableto review and talk to her usual team. She was provided with the hospital printing machine operator phone number in case she has questions or if she thought she needed emergently to talk to the Hematology on-call overthe weekend, we do not make the care plans from our standpoint here in the ED. We also reiterated with the patient how she can always return should she change her mind and want to try the other medications, and especially should return with any new or worsening symptoms or any concerns. DISPOSITION/PLANNING: IMPRESSION: - Acute on chronic pain DISPOSITION: - Discharge home as per patient request FOLLOW-UP: - PCP/Hematology OTHER RECOMMENDATIONS: - Conservative symptom management, strict return instructions - Patient to discuss updated care plan with her usual Hematology teams Marguerite Burgess MD 02/02/2025 [facility] Marguerite Burgess MD 02/04/25 0423 documented in this encounter Plan of Treatment Upcoming Encounters Date Type Department Care Team (Late st Contact Info) Description 02/15/2025 10:30 AM CDT Lab [facility] [address] [phone] Olinda Vora APRN THERMOSCREW OPERATOR [address] [place] [id number] 02/15/2025 11:00 AM CDT Oncology Visit [facility] [address] [phone] Olinda Vora APRN THERMOSCREW OPERATOR [address] [place] [phone] 04/09/2025 3:00 PM HEAT AND FROST INSULATOR Lab [facility] [address] [phone] Case Samuel MD [address] [place] [address], [address] [place], [place] [phone] 04/09/2025 3:30 PM HEAT AND FROST INSULATOR Oncology Visit [facility] [address] [phone] Case Samuel MD [address] [place] [address], [address] [place], [place] [phone] documented as of this encounter Goals Goal [...] Comments CBC WITH PLATELETS AND DIFFERENTIAL STAT 02/02/2025 7:12 PM CDT CBC WITH PLATELETS AND DIFFERENTIAL (LIMITED OCCURRENCES) STAT 02/02/2025 7:12 PM CDT COMPREHENSIVE METABOLIC PANEL (LIMITED OCCURRENCES) STAT 02/02/2025 7:12 PM CDT RETICULOCYTE COUNT STAT 02/02/2025 7: 12 PM CDT HCG QUALITATIVE STAT 02/02/2025 7:12 PM CDT documented in this encounter Results * (ABNORMAL) CBC with platelets and differential (02/02/2025 7:12 PM CDT) WBC Count 12.33(H) 4.00 - 11.00 10e3/uL 02/02/2025 7:40 PM CDT [facility] RBC Count 2.73(L) 3.80 - 5.20 10e6/uL 02/02/2025 7:40 PM CDT [facility] Hemoglobin 9.3(L) 11.7 - 15.7 g/dL 02/02/2025 7:40 PM CDT [facility] Hematocrit 27.7(L) 35.0 - 47.0 % 02/02/2025 7:40 PM CDT [facility] MCV 101.5(H) 78.0 - 100.0 fL 02/02/2025 7:40 PM CDT [facility] MCH 34.1(H) 26.5 - 33.0 pg 02/02/2025 7:40 PM CDT [facility] MCHC 33.6 31.5 - 36.5 g/dL 02/02/2025 7:40 PM CDT [facility] RDW 19.6(H) 10.0 - 15.0 % 02/02/2025 7:40 PM CDT [facility] Platelet Count 384 150 - 450 10e3/uL 02/02/2025 7:40 PM CDT [facility] % Neutrophils 66.7 % 02/02/2025 7:40 PM CDT [facility] % Lymphocytes 22.8 % 02/02/2025 7:40 PM CDT [facility] % Monocytes 8.4 % 02/02/2025 7:40 PM CDT [facility] % Eosinophils 0.9 % 02/02/2025 7:40 PM CDT [facility] % Basophils 0.7 % 02/02/2025 7:40 PM CDT [facility] % Immature Granulocytes 0.5 % 02/02/2025 7:40 PM CDT [facility] NRBCs per 100 WBC 3.3(H) <1.0 /100 02/02/2025 7:40 PM CDT [facility] Absolute Neutrophils 8.23 1.60 - 8.30 10e3/uL 02/02/2025 7:40 PM CDT [facility] Absolute Lymphocytes 2.81 0.80 - 5.30 10e3/uL 02/02/2025 7:40 PM CDT [facility] Absolute Monocytes 1.03 0.00 - 1.30 10e3/uL 02/02/2025 7:40 PM CDT [facility] Absolute Eosinophils 0.11 0.00 - 0.70 10e3/uL 02/02/2025 7:40 PM CDT [facility] Absolute Basophils 0.09 0.00 - 0.20 10e3/uL 02/02/2025 7:40 PM CDT [facility] Absolute Immature Granulocytes 0.06 <=0.40 10e3/uL 02/02/2025 7:40 PM CDT [facility] Absolute NRBCs 0.41 10e3/uL 02/02/2025 7:40 PM CDT [facility] Blood BLOOD SPECIMEN / Unknown Venipuncture / Unknown 02/02/2025 7:12 PM CDT 02/02/2025 7:25 PM CDT Marguerite Burgess MD LAB - BLOOD ORDERABLES Final Result Performing Organization Address City/[facility]/ZIP Co de Phone Number [facility] [employer] [facility] [address] [facility], [address] * HCG qualitative Blood (02/02/2025 7:12 PM CDT) Pathologist [facility] hCG Serum Qualitative Negative Negative JARET 02/02/2025 7:44 PM CDT [facility] Comment:This test is for scr eening purposes. Results should be interpreted along with the clinical picture. Confirmation testing is available if warranted by ordering [id number], HCG Quantitative . Blood BLOOD SPECIMEN / Unknown Venipuncture / Unknown 02/02/2025 7:12 PM CDT 02/02/2025 7:24 PM CDT Marguerite Burgess MD LAB - BLOOD ORDERABLES Final Result Performing Organization Address [facility] de Phone Number [facility] [employer] [facility] [address] [facility], [address] [address] [place] [address] * (ABNORMAL) Reticulocyte count (02/02/2025 7:12 PM CDT) % Reticulocyte 17.36(H) 0.50 - 2.00 % 02/02/2025 7:40 PM CDT [facility] Absolute Reticulocyte 0.4739(H) 0.0250 - 0.0950 10e6/uL 02/02/2025 7:40 PM CDT [facility] Blood BLOOD SPECIMEN / Unknown Venipuncture / Unknown 02/02/2025 7:12 PM CDT 02/02/2025 7:25 PM CDT us Marguerite Burgess MD LAB - BLOOD ORDERABLES Final Result [facility] [employer] [facility] [address] [facility] [address], [address] [place] [address], [facility] * (ABNORMAL) Comprehensive Metabolic Panel (Limited Occurrences) (02/02/2025 7:12 PM CDT) Sodium 139 135 - 145 mmol/L 02/02/2025 8:01 PM CDT [facility] Potassium 4.4 3.4 - 5.3 mmol/L 02/02/2025 8:01 PM CDT [facility] Carbon Dioxide (CO2) 23 22 - 29 mmol/L 02/02/2025 8:01 PM CDT [facility] Anion Gap 10 7 - 15 mmol/L 02/02/2025 8:01 PM CDT [facility] Urea Nitrogen 7.0 6.0 - 20.0 mg/dL 02/02/2025 8:01 PM CDT [facility] Creatinine 0.69 0.51 - 0.95 mg/dL 02/02/2025 8:01 PM CDT [facility] GFR Estimate >90 >60 mL/min/1.7 3m2 02/02/2025 8:01 PM CDT [facility] Comment: Unable to calculate: Creatinine value is outside the detectable level eGFR calculated using 2020 CKD-EPI equation. Calcium 9.8 8.8 - 10.4 mg/dL 02/02/2025 8:01 PM CDT [facility] Chloride 106 98 - 107 mmol/L 02/02/2025 8:01 PM CDT [facility] Glucose 89 70 - 99 mg/dL 02/02/2025 8:01 PM CDT [facility] Alkaline Phosphatase 77 40 - 150 U/L 02/02/2025 8:01 PM CDT [facility] AST 43 0 - 45 U/L 02/02/2025 8:01 PM CDT [facility] ALT 22 0 - 50 U/L 02/02/2025 8:01 PM CDT [facility] Protein Total 9.0(H) 6.4 - 8.3 g/dL 02/02/2025 8:01 PM CDT [facility] Albumin 4.7 3.5 - 5.2 g/dL 02/02/2025 8:01 PM CDT [facility] Bilirubin Total 2.0(H) <=1.2 mg/dL 02/02/2025 8:01 PM CDT [facility] Blood BLOOD SPECIMEN / Unknown Venipuncture / Unknown 02/02/2025 7:12 PM CDT 02/02/2025 7:25 PM CDT us Marguerite Burgess MD LAB - BLOOD ORDERABLES Final Result [facility] [employer] [facility] [address] [facility], [address] [place] [address], [facility] documented in this encounter Visit Diagnoses Diagnosis Acute on chronic back pain- Primary documented in this encounter Active and Recently Administered Medications Care Teams Manager Digital Relationship Specialty Start Date End Date Veronica Joseph MD [address] [place] [address] PCP - General Family Medicine 06/18/24 Mor Ramsey Medical Student 04/03/24 Case Samuel MD [address] [facility] [address], [address] [place], [place] [phone] Assigned Pediatric Specialist Provider 05/18/24 Juhi Benson, RN Specialty Cafeteria Server Hematology & Oncology 05/29/24 Olinda Vora APRN THERMOSCREW OPERATOR [address] [place], [place] [phone] Assigned Cancer Care Provider 08/16/24 Stiven Stanley LP [address] [place] [address] Psychologist PSYCHOLOGIST CLINICAL 10/25/24 Star Galarza MD [facility] [address] [place], [place] [phone] Home Infusion Following Provider Infectious Diseases 11/07/24 documented as of this encounter
--- OUTSIDE RECORDS SUMMARY | 2025-02-03 19:50 | XMS_ITS | Encounter Summary ---
Author Organization [facility] Address [address] [place] [address] Care Team Providers Care Mop Handle Assembler Name Role Phone None Reported, Pcp Primary Care Provider Unavail able Reason for Visit * Reason Comments Sickle Cell Pain Crisis Pt presents with generalized body aches and nausea. Pt states that she has been moving all day today and is super dehydrated. Encounter Details Date Type Department Care Team (Late st Contact Info) Description 02/03/2025 7:50 PM CDT - 02/03/2025 9:46 PM CDT Emergency [facility] [address] [place] [phone] Cheli Bond, WIRED SWEATBAND CUTTER, C.N.P. [address] [phone] Hb-SS Disease (Sickle Cell) Vaso-Occlusive Pain Crisis [...] Sign Reading Time Taken Comments Blood Pressure 113/87 02/03/2025 9:30 PM CDT Pulse 109 02/03/2025 9:30 PM CDT Temperature 37.1 C (98.8 F) 02/03/2025 7:56 PM CDT Respiratory Rate 26 02/03/2025 9:30 PM CDT Oxygen Saturation 95% 02/03/2025 9:30 PM CDT Inhaled Oxygen Concentration - - Weight 47.7 kg (105 lb 2.6 oz) 02/03/2025 7:59 P M CDT Height - - Body Mass Index - - documented in this encounter Discharge Instructions * Discharge Instructions* Cheli Bond APRN, C.N.P. - 02/03/2025 9:36 PM CDT Sickle Cell Crisis Discharge You were treated for a sickle cell crisis, which is a painful episode caused by sickle-shaped red blood cells blocking blood flow. Your lab results showed a high reticulocyte percentage and absolute reticulocyte count, meaning your bone marrow is working hard to make new red blood cells. This is common during and after a crisis, as your body tries to replace cells lost to hemolysis. What to Watch For: - Fever (temperature above 101??F/38.3??C): Seek medical care immediately, as infection can be serious in sickle cell disease. - Chest pain, trouble breathing, or cough: These may be signs of acute chest syndrome, which needs urgent evaluation. - Abdominal pain, especially on the left side, or a rapidly enlarging belly: This could indicate splenic sequestration, a medical emergency. - Unusual tiredness, paleness, or weakness: May signal worsening anemia or other complications. - Severe pain not controlled by your home medications. Home Care: - Pain management: Take prescribed pain medications as directed. Use heat packs and rest as needed. - Hydration: Drink plenty of fluids unless otherwise instructed. - Monitor for new or worsening symptoms: Keep track of pain, fever, and any changes in your health. - Follow-up: Schedule a follow-up appointment with your zigzag stitcher or primary care provider within 1 week, or sooner if symptoms worsen. Lab Monitoring: - Your reticulocyte count is high, which is expected after a crisis. This means your body is makingnew red blood cells. Your doctor may repeat blood tests at your follow-up visit to monitor recovery. Prevention and Health Maintenance: - Stay up to date on vaccinations, especially if you have had your spleen removed or have splenic dysfunction. - Take any prescribed medications, such as hydroxyurea, as directed. - Know your baseline hemoglobin and reticulocyte counts, and share this information with healthcareproviders during future visits. When to Seek Immediate Care: - Fever above 101??F/38.3??C - Difficulty breathing or chest pain - Severe abdominal pain or swelling - Sudden weakness, confusion, or trouble speaking - Severe pain not relieved by medication If you have any questions or concerns, contact your healthcare provider or go to the nearest emergency department. Summary of Your Lab Results: - Reticulocyte percentage: 17.36% (high) - Absolute reticulocyte count: 0.4739 (high) These results are typical during recovery from a sickle cell crisis and show your bone marrow is responding appropriately. Take care and follow these instructions closely to help prevent complications and promote recovery. documented in this encounter Medications at Time [...] as of this encounter ED Notes * Cheli Bond, JAVIER, C.N.P. - 02/03/2025 9:32 PM CDT The patient verbally consented to an audio recording of their visit to assist with the completion of documentation. SUBJECTIVE CHIEF COMPLAINT/REASON FOR VISIT Sickle Cell Pain Crisis (Pt presents with generalized body aches and nausea. Pt states that she hasbeen moving all day today and is super dehydrated. ) HISTORY OF PRESENT ILLNESS History of Present Illness Gianna Hernández is a 29 year old female with sickle cell disease who presents with concernsrelated to a recent blood infection and subsequent treatment complications. She recently experienced a blood infection requiring hospitalization. During this time, she had twoports, one for aphrodisiac and another for general use. Cultures revealed an infection in her arm, but the ports were negative. Despite this, she developed a fever of 106??F and became septic, leading to the removal of both ports and the placement of a PICC line. She administered antibiotics through the PICC line for three to four weeks. Her medical history is significant for sickle cell disease, which has led to multiple complications, including a high-risk . During her , she required dialysis every two weeks due to low hemoglobin levels, which would drop to 5.9, necessitating transfusions. She delivered her daughter at 32 weeks after a rapid labor. Her daughter was very small at , weighing 4 pounds 12 ounces, but did not require NICU care. She has undergone three surgeries in the past: tonsillectomy, hip surgery, and left knee surgery. She recently moved with her boyfriend and their [id number] child, which has been physically demanding. No chest pain or acute chest symptoms. Normal urination. REVIEW OF SYSTEMS Musculoskeletal: Positive for myalgias (describes diffuse discomfort). OBJECTIVE Initial Vitals Temperature 02/03/251955 37.1 ??C Pulse Rate 02/03/251955 (!) 111 Heart Rate 02/03/251955 (!) 111 Resp Rate 02/03/251955 15 Blood Pressure 02/03/251955 116/73 SpO2 02/03/251955 99 % Pain Score 02/03/251958 9 PHYSICAL EXAMINATION Constitutional: Nursing note and vitals reviewed. She is cooperative. HENT: Head: Atraumatic. Mouth/Throat: Oropharynx is clear and moist. Mucous membranes are moist. Eyes: Conjunctivae are normal. Neck: Neck supple. Cardiovascular: Regular rhythm. Tachycardia present. Extremities warm and well perfused No edema Pulmonary/Chest: Effort normal and breath sounds normal. No respiratory distress. Abdominal: Soft. Normal appearance. There is no abdominal tenderness. Musculoskeletal: Cervical back: Neck supple. Comments: Moving arms and legs per baseline ambulatory Neurological: Alert and oriented to person, place, and time. Normal speech. Skin: Skin is warm and dry. No rash (on exposed skin) noted. Psychiatric: Behavior is normal. Physical Exam ASSESSMENT/PLAN Medical Decision Making 29-year-old female with a history of sickle cell disease and recent sepsis secondary to a blood infection presented with chronic pain at a level of seven, without acute chest symptoms. She has a complex medical history including prior port-related infection, PICC line placement, and significant complications during requiring dialysis and transfusions. On exam, she is alert and oriented,with no acute distress or new focal findings. She reports ongoing pain but denies urinary or chest complaints. Sickle Cell Disease with Chronic Pain Chronic pain associated with sickle cell disease, currently at a level seven, with a target level of four. - Administered additional dose of pain medication as discussed. - Reassess pain levels post-medication administration. ED Course as of 02/04/25 2230 Sat Feb 03, 2025191102/02/25 19:12 EXT Absolute Reticulocyte: 0.4739 (H) (E) EXT Sodium: 139 (E) EXT Potassium, S: 4.4 (E) EXT Chloride: 106 (E) EXT Anion Gap, P: 10 (E) EXT BUN (Blood Urea Nitrogen), P: 7 (E) EXT Creatinine: 0.69 (E) EXT Calcium: 9.8 (E) EXT Glucose: 89 (E) EXT Bilirubin, Total: 2 (H) (E) EXT Alanine Aminotransferase (ALT), P: 22 (E) EXT Aspartate Aminotransferase (AST), P: 43 (E) EXT Alkaline Phosphatase: 77 (E) EXT Total Protein: 9 (H) (E) (H): Data is abnormally high (E): External lab result 2131 Declined labs, states that she is feeling much better and would like to discharge home Final Diagnoses: as of 02/04/252229 Hb-SS Disease (Sickle Cell) Vaso-Occlusive Pain Crisis (HCC) Cheli Bond APRN, C.N.P. 02/04/252229 documented in this encounter Plan of Treatment Not on file documented as of this encounter Procedures Procedure Name Priority Date/Time Associated Diagnosis Comments ECG Routine 02/03/2025 8:46 PM CDT documented in this encounter Results * ECG 12 Lead (02/03/2025 8:46 PM CDT) Ventricular Rate ECG/Min 81 BPM MUSE CO Interval 146 ms MUSE QRSD Interval 84 ms MUSE QT Interval 372 ms MUSE QTC Interval 432 ms MUSE P [place] 61 degrees MUSE R [place] 59 degrees MUSE T Wave [place] 27 degrees MUSE 02/03/2025 8:46 PM CDT 02/03/2025 8:53 PM CDT Impressions MUSE - 02/03/2025 8:53 PM CDT Normal sinus rhythm Nonspecific T wave abnormality When compared with ECG of 29-Nov-2024 19:16, No significant change was found Reviewed by JUAN Burnett Narrative Procedure Note Octavio Kwan M.D. - 02/03/2025 IMPRESSION: Normal sinus rhythm Nonspecific T wave abnormality When compared with ECG of 29-Nov-2024 19:16, No significant change was found Reviewed by JUAN Burnett us Cheli Bond APRN, C.N.P. ECG ORDERABLES Final Result MUSE NA documented in this encounter Visit Diagnoses Diagnosis Hb-SS Disease (Sickle Cell) Vaso-Occlusive Pain Crisis (HCC)- Primary documented in this encounter Administered Medications Inactive Administered Medications - up to 3 most recent administrations Medication Order MAR Action Action Date Dose Rate Site diphenhydrAMINE injection 25 mg (BenadryL) 25 mg, intravenous, Once, On 02/03/25 at 2007, For 1 dose Given 02/03/2025 8:24 PM CDT 25 mg HYDROmorphone injection 1 mg (Dilaudid) 1 mg, intravenous, Every 30 min PRN, severe pain or score 7-10 of 10, Starting on 02/03/25 at 2004, For 2 doses Given 02/03/2025 9:09 PM CDT 1 mg Given 02/03/2025 8:24 PM CDT 1 mg Lactated Ringer's bolus 1,000 mL 1,000 mL, intravenous, at 1,000 mL/hr, Administer over 1 Hours, Once, On 02/03/25 at 2007, For 1 dose New Bag 02/03/2025 8:25 PM CDT 1,000 mL 1000 mL/hr ondansetron (PF) injection 4 mg (Zofran) 4 mg, intravenous, Once, On 02/03/25 at 2007, For 1 dose Given 02/03/2025 8:24 PM CDT 4 mg sodium chloride 0.9 % injection 10 mL 10 mL, intravenous, As needed, line care, Starting on 02/03/25 at 2002, Peripheral Intravenous Catheter and Rapid Infusion Catheter, prior to blood sampling, post blood transfusion or post blood sampling sodium chloride 0.9 % injection 3 mL 3 mL, intravenous, As needed, line care, Starting on 02/03/25 at 2002, Prior to and following infusion and between multiple consecutive infusions: sodium chloride 0.9 % injection sodium chloride 0.9 % injection 3 mL 3 mL, intravenous, Every 12 hours scheduled, First dose on 02/03/25 at 2100, Peripheral Intravenous Catheter and Rapid Infusion Catheter, when no infusion to maintain patency documented in this encounter Active and Recently Administered Medications Times are shown in CDT. Scheduled Medication Order 02/01/2025 02/02/2025 02/03/2025 diphenhydrAMINE injection 25 mg (BenadryL) (COMPLETED) 25 mg, intravenous, Once, On 02/03/25 at 2007, For 1 dose 2023 (Given - Provid er: Alex Kendrick R.N.) Lactated Ringer's bolus 1,000 mL (COMPLETED) 1,000 mL, intravenous, at 1,000 mL/hr, Administer over 1 Hours, Once, On 02/03/25 at 2007, For 1 dose 2024 (New Bag - Prov ider: Alex Kendrick R.N.)2143 (Stopped - Provider: Marissa Laboy R.N.) ondansetron (PF) injection 4 mg (Zofran) (COMPLETED) 4 mg, intravenous, Once, On 02/03/25 at 2007, For 1 dose 2023 (Given - Provid er: Alex Kendrick R.N.) sodium chloride 0.9 % injection 3 mL 3 mL, intravenous, Every 12 hours scheduled, First dose on 02/03/25 at 2100, Peripheral Intravenous Catheter and Rapid Infusion Catheter, when no infusion to maintain patency 2100 (Due) PRN Medication Order 02/01/2025 02/02/2025 02/03/2025 HYDROmorphone injection 1 mg (Dilaudid) (COMPLETED) 1 mg, intravenous, Every 30 min PRN, severe pain or score 7-10 of 10, Starting on 02/03/25 at 2004, For 2 doses 2023 (Given - Provid er: Alex Kendrick R.N.)2108 (Given - Provider: Marissa Laboy R.N.) sodium chloride 0.9 % injection 10 mL 10 mL, intravenous, As needed, line care, Starting on 02/03/25 at 2002, Peripheral Intravenous Catheter and Rapid Infusion Catheter, prior to blood sampling, post blood transfusion or post blood sampling sodium chloride 0.9 % injection 3 mL 3 mL, intravenous, As needed, line care, Starting on 02/03/25 at 2002, Prior to and following infusion and between multiple consecutive infusions: sodium chloride 0.9 % injection documented in this encounter Care Teams Mop Handle Assembler Relationship Specialty Start Date End Date None Reported, Pcp PCP - General Family Medicine 07/22/24 documented as of this encounter
--- OUTSIDE RECORDS SUMMARY | 2025-02-04 16:36 | XMS_ITS | Encounter Summary ---
Author Organization [facility] Address [address] [place] [address] Care Team Providers Care Bulk Tank Driver Name Role Phone None Reported, Pcp Primary Care Provider Unavail able Reason for Visit * Reason Comments Sickle Cell Pain Crisis Encounter Details Date Type Department Care Team (Late st Contact Info) Description 02/04/2025 4:36 PM CDT - 02/04/2025 6:51 PM CDT Emergency [facility] [address] [place] [phone] Jeffrey Valdez APRN, C.N.P., M.S.N. [address] [place] [phone] Hb-SS Disease (Sickle Cell) Vaso-Occlusive Pain Crisis [...] Sign Reading Time Taken Comments Blood Pressure 125/90 02/04/2025 6:45 PM CDT Pulse 68 02/04/2025 6:45 PM CDT Temperature 36.8 C (98.2 F) 02/04/2025 4:44 PM CDT Respiratory Rate - - Oxygen Saturation 94% 02/04/2025 6:45 PM CDT Inhaled Oxygen Concentration - - Weight - - Height - - Body Mass Index - - documented in this encounter Discharge Instructions * Discharge Instructions* Jeffrey Valdez APRN, C.N.Linda., M.S.N. - 02/04/2025 5:26 PM CDT Make sure to reach out to your screen printing press operator for further management of your sickle cell pain. Get help right away if: You become short of breath or are having trouble breathing. Fever Abdominal pain You have pain that cannot be controlled with medicine. You have any signs of a stroke. BE FAST is an easy way to remember the main warning signs: B - Balance. Dizziness, sudden trouble walking, or loss of balance. E - Eyes. Trouble seeing or a change in how you see. F - Face. Sudden weakness or loss of feeling of the face. The face or eyelid may droop on one side. A - Arms. Weakness or loss of feeling in an arm. This happens all of a sudden and most often on oneside of the body. S - Speech. Sudden trouble speaking, slurred speech, or trouble understanding what people say. T - Time. Time to call emergency services. Write down what time symptoms started. You have other signs of a stroke, such as: A sudden, very bad headache with no known cause. Feeling like you may vomit (nausea). Vomiting. Seizure. These symptoms may be an emergency. Get help right away. Call 911. Do not wait to see if the symptoms will go away. Do not drive yourself to the hospital. Also, get help right away if: You have strong feelings of sadness or loss of hope, or you have thoughts about hurting yourself orothers. * Attachments The following attachments cannot be sent through Care Everywhere. * Living With Sickle Cell Disease (Slovenian) documented in this encounter Medications at Time of Discharge apixaban (Eliquis) 5 mg tablet Take 5 mg by mouth 2 (two) times a day. FLUoxetine (PROzac) 40 mg capsule Take 40 [...] * Jeffrey Valdez, JAVIER, C.N.P., M.S.N. - 02/04/2025 5:04 PM CDT The patient verbally consented to an audio recording of their visit to assist with the completion of documentation. SUBJECTIVE CHIEF COMPLAINT/REASON FOR VISIT Sickle Cell Pain Crisis HISTORY OF PRESENT ILLNESS History of Present Illness Gianna Hernández is a 29 year old female with sickle cell disease who presents with a usual flare-up of pain. She reports experiencing her usual flare-up of pain associated with her sickle cell disease, with no new or worsening symptoms. No fever or urinary issues are present during this episode. She has been visiting the emergency department almost daily for the past two months due to these flare-ups. She is currently awaiting hematology to schedule a procedure to place a port. She is currently taking Eliquis as part of her medication regimen. She has deferred any blood work during this visit. REVIEW OF SYSTEMS Constitutional: Negative for chills and fever. Generalized body ache HENT: Negative. Eyes: Negative. Respiratory: Negative. Cardiovascular: Negative. Gastrointestinal: Negative. Psychiatric/Behavioral: Negative. OBJECTIVE Initial Vitals Temperature 02/04/25 1644 36.8 ??C Pulse Rate 02/04/25 1645 95 Heart Rate -- Resp -- Blood Pressure 02/04/25 1645 113/72 SpO2 02/04/25 1645 100 % Pain Score 02/04/25 1644 9 PHYSICAL EXAMINATION Constitutional: She appears not lethargic. No distress. HENT: Head: Normocephalic. Pulmonary/Chest: Effort normal. Neurological: Alert and oriented to person, place, and time. Skin: Skin is normal color. She is not diaphoretic. Psychiatric: She has a normal mood and affect. Physical Exam ASSESSMENT/PLAN Medical Decision Making 29-year-old female with a history of sickle cell disease (Hb-SS) presented with her usual pain crisis, reporting no new symptoms, fever, or urinary complaints. She has been visiting the ED almost daily for the past two months and is awaiting hematology follow-up for port placement and resumption ofadrucil. She is a well known patient from [facility]. She is currently on Eliquis. Physical exam and review of systems were unremarkable for acute changes. Differential diagnosis includes, but is not limited to: - Sickle cell pain crisis: Most likely etiology given her history, typical symptoms, and lack of new findings. - Aplastic crisis: Considered due to her underlying sickle cell disease, but less likely as there are no new symptoms or changes from baseline. - Splenic sequestration crisis: Considered but less likely given absence of acute changes or new symptoms. - Sepsis: Considered but less likely as she is afebrile and without signs of infection. - Acute chest syndrome: Considered but less likely as there are no respiratory symptoms or chest pain. - Pulmonary embolism: Considered due to her risk factors, but less likely as there are no new symptoms or clinical changes. Sickle cell pain crisis Recurrent pain crisis without significant change in symptoms, currently stable. - Administered pain control - Discharged after stabilization - Advised to contact hematology for further management Plan: She has had almost daily visit to ED and hospital stays for at least the past 3 months. At some point, she would be best serve to reduce ED visit by optimizing her outpatient management and social service support. I have discussed this with the patient and offer referral for social service and mental health. She states she does have that service at [facility]. She reports she is waiting regarding port placement from hematology and consider outpatient infusion for pain control. ED Course as of 02/04/251846 [place] Feb 04, 2025 1720 I did discuss with the patient case with the on-call screen printing press operator, Dr. Shaw, of [facility]. He said to continue on the patient's pain plan and he will make note of patient's visit with patient's screen printing press operator, Dr. Samuel. I did discuss with the patient that I do recommend she reachout to her screen printing press operator for management Final Diagnoses: as of 02/04/251846 Hb-SS Disease (Sickle Cell) Vaso-Occlusive Pain Crisis (HCC) Jeffrey Valdez APRN, C.N.P., M.S.N. 02/04/251846 documented in this encounter Plan of Treatment Not on file documented as of this encounter Visit Diagnoses Diagnosis Hb-SS Disease (Sickle Cell) Vaso-Occlusive Pain Crisis (HCC)- Primary documented in this encounter Administered Medications Inactive Administered Medications - up to 3 most recent administrations Medication Order MAR Action Action Date Dose Rate Site diphenhydrAMINE injection 25 mg (BenadryL) 25 mg, intravenous, Once, On 02/04/25 at 1701, For 1 dose Given 02/04/2025 5:20 PM CDT 25 mg HYDROmorphone injection 2 mg (Dilaudid) 2 mg, intravenous, Every 1 hour PRN, severe pain or score 7-10 of 10, Starting on 02/04/25 at 1659, For 3 doses Given 02/04/2025 6:26 PM CDT 2 mg Given 02/04/2025 5:21 PM CDT 2 mg Lactated Ringer's bolus 1,000 mL 1,000 mL, intravenous, at 500 mL/hr, Administer over 2 Hours, Once, On 02/04/25 at 1701, For 1 dose New Bag 02/04/2025 5:21 PM CDT 1,000 mL 500 mL/hr documented in this encounter Active and Recently Administered Medications Times are shown in CDT. Scheduled Medication Order 02/02/2025 02/03/2025 02/04/2025 diphenhydrAMINE injection 25 mg (BenadryL) (COMPLETED) 25 mg, intravenous, Once, On 02/04/25 at 1701, For 1 dose 1720 (Given - Provid er: Carmen Vázquez R.N.) Lactated Ringer's bolus 1,000 mL 1,000 mL, intravenous, at 500 mL/hr, Administer over 2 Hours, Once, On 02/04/25 at 1701, For 1 dose 1721 (New Bag - Prov ider: Carmen Vázquez R.N.)1852 (Stopped - Provider: Carmen Vázquez R.N.) PRN Medication Order 02/02/2025 02/03/2025 02/04/2025 HYDROmorphone injection 2 mg (Dilaudid) 2 mg, intravenous, Every 1 hour PRN, severe pain or score 7-10 of 10, Starting on 02/04/25 at 1659, For 3 doses 1721 (Given - Provid er: Carmen Vázquez R.N.)1826 (Given - Provider: Carmen Vázquez R.N.) documented in this encounter Care Teams Bulk Tank Driver Relationship Specialty Start Date End Date None Reported, Pcp PCP - General Family Medicine 07/22/24 documented as of this encounter
--- OUTSIDE RECORDS SUMMARY | 2025-02-06 11:17 | XMS_ITS | Encounter Summary ---
Author Organization [facility] Address [address] [place] [address] Care Team Providers Care Archival Records Clerk Name Role Phone None Reported, Pcp Primary Care Provider Unavail able Reason for Visit * Reason Comments Sickle Cell Pain Crisis 29 year old chapin lares admits with continued concerns of sickle cell crisis . Pt states she ahs a specific pain regime when she comes to the emergency room Encounter Details Date Type Department Care Team (Late st Contact Info) Description 02/06/2025 11:17 AM CDT - 02/06/2025 1:09 PM CDT [facility] [address] [place] [phone] Karrie Joshua APRN, C.N.P., M.S.N. [address] [place] [phone] Hb-SS Disease (Sickle Cell) Vaso-Occlusive Pain Crisis [...] Sign Reading Time Taken Comments Blood Pressure 110/66 02/06/2025 12:45 PM CDT Pulse 74 02/06/2025 12:45 PM CDT Temperature 37 C (98.6 F) 02/06/2025 11:13 AM CDT Respiratory Rate 14 02/06/2025 12:45 PM CDT Oxygen Saturation 100% 02/06/2025 12:45 PM CDT Inhaled Oxygen Concentration - - Weight 49 kg (108 lb 0.4 oz) 02/06/2025 11:14 AM CDT Height - - Body Mass Index - - documented in this encounter Discharge Instructions * Discharge Instructions* Karrie Joshua APRN, C.NBertrand., M.S.N. - 02/06/2025 12:56 PM CDT -Follow up with PCP in one week - Please follow up with Hematology - Return in the emergency department for fever, chest pain, shortness a breath, abdominal pain, or new concerning symptom * Attachments The following attachments cannot be sent through Care Everywhere. * Living With Sickle Cell Disease ([place]) documented in this encounter Medications at [...] as of this encounter ED Notes * Karrie Joshua APRN, C.N.P., M.S.N. - 02/06/2025 11:13 AM CDT The patient verbally consented to an audio recording of their visit to assist with the completion of documentation. SUBJECTIVE CHIEF COMPLAINT/REASON FOR VISIT Sickle Cell Pain Crisis (29 year old female admits with continued concerns of sickle cell crisis . Pt states she ahs a specific pain regime when she comes to the emergency room) HISTORY OF PRESENT ILLNESS History of Present Illness Gianna Hernández is a 29 year old female with sickle cell disease who presents with a sicklecell crisis. Vaso-occlusive pain crisis - Onset of pain this morning - Pain localized to back, legs, and arms - Minimal relief with Dilaudid 4 mg taken three hours ago - Associated sensation of dehydration - No chest pain, shortness of breath, abdominal pain, fever, urinary symptoms, or skin changes Recent infectious complications - Recent blood infection with sepsis - Ports removed due to infection - Completed course of antibiotics - Reticulocyte count was 26% after antibiotics - Awaiting port reinsertion and resumption of apheresis treatments Medication use - Current medications: hydroxyurea 2000 mg, folic acid 2 mg, multivitamin, Prozac, Dilaudid 4 mg every six hours - Last dose of Dilaudid taken three hours ago with minimal relief Gynecologic history - Last menstrual period December 29 - Nexplanon implant in place - No concerns for Prior plan of care EMERGENCY CARE PLAN Please note that you [...] background: 29 yo F, recently moved from [place] Sickle Cell Disease History Primary Authorization Rep/PET COUNSELOR/PA: Lizzie Genotype: SS Acute Pain Crisis Treatment: (note that Toradol is listed as an allergy) ER/Acute Care/Infusion Clinic: Hydromorphone 2 mg IVP/SC Q1H X 3 doses LR 500 ml/hr x 2 hours (1 L total) Other: Zofran 8 mg IV REVIEW OF SYSTEMS OBJECTIVE Initial Vitals Temperature 02/06/25 1113 37 ??C Pulse Rate 02/06/25 1113 87 Heart Rate -- Resp -- Blood Pressure 02/06/25 1113 112/72 SpO2 02/06/25 1113 100 % Pain Score 02/06/25 1114 9 PHYSICAL EXAMINATION HENT: Mouth/Throat: Mucous membranes are moist. Eyes: EOM are normal. Pupils are equal, round, and reactive to light. Cardiovascular: Normal rate. Pulses are palpable. Capillary refill: takes less than 3 secondsEdema:no edema noted Pulmonary/Chest: Effort normal and breath sounds normal. There is normal air entry. Abdominal: Soft. There is no abdominal tenderness. There is no guarding. Musculoskeletal: General: Normal range of motion. Neurological: Alert and oriented to person, place, and time. Skin: Skin is warm, dry, intact and normal color. ASSESSMENT/PLAN Medical Decision Making 29-year-old female with a history of sickle cell disease presented with an acute pain crisis, reporting typical pain in her back, legs, and arms, and feeling dehydrated. She denied chest pain, shortness of breath, abdominal pain, fever, urinary symptoms, or skin changes. She is on hydroxyurea, folic acid, multivitamin, Prozac, and Dilaudid, and remote history of septic blood infection requiring port removal. She is awaiting port replacement and resumption of apheresis, with no current concern for . Differential diagnosis includes, but is not limited to: - Acute Sickle Cell Pain Crisis: Acute pain in typical locations without other concerning symptoms is consistent with a vaso-occlusive crisis in the setting of known sickle cell disease. - Acute Chest Syndrome : Unlikely as the patient does not have respiratory symptoms or chest pain Sepsis- considered but unlikely as no noted fever, skin changes, respiratory symptoms, urinary symptoms or new pain that is different from vaso-occlusive crisis. -Pulmonary Embolism: Anticoagulated on Eliquis, good medication compliance, no symptoms of DVT or PE. Sickle cell disease with acute pain crisis - Order lab work ordered including CBC with anemia, leukocytosis favored to be reactive in lack of infectious symptoms, elevation in reticulocyte profile, LDH elevation, normal lipase. Treated with LR one liter, 2mg IV dilaudid x2 dose an hour apart, benadryl and she had resolution of pain. Discharged from ED in stable condition. Strict return precautions discussed. Urged to followup closely with Hematology for better control of symptoms. She is agreeable. ED Course as of 02/06/25 1256 [facility] Feb 06, 2025 1202 Leukocytes(!): 18.3 Could be reactive. Patient denies chest pain, no cough, no shortness of breath, no rash, no skin lesions and no fever. Offered x-ray of chest and shared decision making conversation discussed. Deferred imaging. Final Diagnoses: as of 02/06/25 1256 Hb-SS Disease (Sickle Cell) Vaso-Occlusive Pain Crisis (HCC) Karrie Joshua APRN, C.N.P., M.S.N. 02/07/25 1906 documented in this encounter Plan of Treatment Not on file documented as of this encounter Procedures Procedure Name Priority Date/Time Associated Diagnosis Comments RETICULOCYTE PROFILE, B STAT 02/06/2025 11:29 AM CDT PROTHROMBIN TIME (PT), P STAT 02/06/2025 11:29 AM CDT CBC WITH DIFFERENTIAL, B STAT 02/06/2025 11:29 AM CDT LIPASE, S/P STAT 02/06/2025 11:29 AM CDT LACTATE DEHYDROGENASE (LD), S STAT 02/06/2025 11:29 AM CDT COMPREHENSIVE METABOLIC PANEL, S/P STAT 02/06/2025 11:29 AM CDT documented in this encounter Results * (ABNORMAL) LD (Lactate Dehydrogenase) (02/06/2025 11:29 AM CDT) Lactate Dehydrogenase (LD), P 417(H) 122 - 222 U/L 02/06/2025 1:18 PM CDT [facility] Blood (Blood, Venous) 02/06/2025 11:29 AM CDT 02/06/2025 12:41 PM CDT us Karrie Joshua APRN, C.N.P., M.S.N. LAB BLOOD NON ADD-ON Final Result [facility] [address] [place] [id number], [facility] [place] [address] [place] [phone] * (ABNORMAL) Prothrombin Time (PT) (02/06/2025 11:29 AM CDT) Prothrombin Time, P 15.6(H) 9.4 - 12.5 sec 02/06/2025 11:41 AM CDT [facility] INR 1.4 0.9 - 1.1 02/06/2025 11:41 AM CDT CNFL Comment: ----ADDITIONAL INFORMATION---- Standard intensity warfarin therapeutic range: 2.0 to 3.0 High intensity warfarin therapeutic range: 2.5 to 3.5 Blood (Blood, Venous) 02/06/2025 11:29 AM CDT 02/06/2025 11:32 AM CDT Jefferson Chavira APRN.N.Linda., M.S.N. LAB BLOOD ADD-ON Final Result Performing Organization Address [facility]/ZIP [place] [address], [place] [address] * Lipase (02/06/2025 11:29 AM CDT) Lipase, P 32 13 - 60 U/L 02/06/2025 11:53 AM CDT [facility] Blood (Blood, Venous) 02/06/2025 11:29 AM CDT 02/06/2025 11:31 AM CDT Jefferson Chavira APRN.N.P., M.S.N. LAB BLOOD ADD-ON Final Result Performing Organization Address City/[facility]/ZIP Co de Phone Number [facility] [address] [place] [address], [place] [address] * (ABNORMAL) Comprehensive Metabolic Panel (02/06/2025 11:29 AM CDT) Potassium, P 3.6 3.6 - 5.2 mmol/L 02/06/2025 11:53 AM CDT [facility] Sodium, P 135 135 - 145 mmol/L 02/06/2025 11:53 AM CDT [facility] Chloride, P 104 98 - 107 mmol/L 02/06/2025 11:53 AM CDT [facility] Bicarbonate, P 21(L) 22 - 29 mmol/L 02/06/2025 11:53 AM CDT [facility] Anion Gap, P 10 7 - 15 02/06/2025 11:53 AM CDT [facility] BUN (Blood Urea Nitrogen), P 9 6 - 21 mg/dL 02/06/2025 11:53 AM CDT [facility] Creatinine 0.59 0.59 - 1.04 mg/dL 02/06/2025 11:53 AM CDT [facility] Estimated GFR (eGFR) >90 >=60 mL/min/BS A 02/06/2025 11:53 AM CDT [facility] Comment: Estimated GFR calculated using the 2020 CKD_EPI creatinine equation. Calcium, Total, P 8.9 8.6 - 10.0 mg/dL 02/06/2025 11:53 AM CDT [facility] Glucose, P 104 70 - 140 mg/dL 02/06/2025 11:53 AM CDT [facility] Protein, Total, P 8.0(H) 6.3 - 7.9 g/dL 02/06/2025 11:53 AM CDT [facility] Albumin, P 4.4 3.5 - 5.0 g/dL 02/06/2025 11:53 AM CDT [facility] Aspartate Aminotransferase (AST), P 30 8 - 43 U/L 02/06/2025 11:53 AM CDT [facility] Alkaline Phosphatase, P 68 35 - 104 U/L 02/06/2025 11:53 AM CDT [facility] Alanine Aminotransferase (ALT), P 18 7 - 45 U/L 02/06/2025 11:53 AM CDT [facility] Bilirubin, Total, P 1.9(H) 0.0 - 1.2 mg/dL 02/06/2025 11:53 AM CDT [facility] Blood (Blood, Venous) 02/06/2025 11:29 AM CDT 02/06/2025 11:31 AM CDT us Karrie Joshua APRN, C.N.P., M.S.N. LAB BLOOD ADD-ON Final Result [facility] [address] [place] [id number], [facility] CNFL [facility] [address] [address] * (ABNORMAL) Reticulocyte Profile (02/06/2025 11:29 AM CDT) Reticulocytes, B 14.59(H) 0.60 - 2.71 % 02/06/2025 1:07 PM CDT [facility] Absolute Reticulocyte 356.0(H) 30.4 - 110.9 x10(9)/L 02/06/2025 1:07 PM CDT [facility] Immature Reticulocyte Fraction 35.9(H) 3.0 - 15.9 % 02/06/2025 1:07 PM CDT [facility] Reticulocyte Hemoglobin 35.3 30.0 - 37.6 pg 02/06/2025 1:07 PM CDT [facility] Blood (Blood, Venous) 02/06/2025 11:29 AM CDT 02/06/2025 12:42 PM CDT Karrie Joshua APRN, C.N.P., M.S.N. LAB BLOOD ADD-ON Final Result [facility] [address] [facility] [place] [address], [place] [facility] [place] [address] [facility] [place] [address] * (ABNORMAL) CBC with Differential, Blood (02/06/2025 11:29 AM CDT) Hemoglobin 8.4(L) 11.6 - 15.0 g/dL 02/06/2025 11:39 AM CDT CNFL Hematocrit 23.6(L) 35.5 - 44.9 % 02/06/2025 11:39 AM CDT [facility] Erythrocytes 2.39(L) 3.92 - 5.13 x10(12)/L 02/06/2025 11:39 AM CDT CN[facility] MCV 98.7(H) 78.2 - 97.9 fL 02/06/2025 11:39 AM CDT CNFL RBC Distrib Width 17.0(H) 12.2 - 16.1 % 02/06/2025 11:39 AM CDT CNFL Platelet Count 363 157 - 371 x10(9)/L 02/06/2025 11:39 AM CDT [facility] Leukocytes 18.3(H) 3.4 - 9.6 x10(9)/L 02/06/2025 11:39 AM CDT [facility] Neutrophils 10.91(H) 1.56 - 6.45 x10(9)/L 02/06/2025 11:39 AM CDT [facility] Lymphocytes 4.96(H) 0.95 - 3.07 x10(9)/L 02/06/2025 11:39 AM CDT [facility] Monocytes 1.91(H) 0.26 - 0.81 x10(9)/L 02/06/2025 11:39 AM CDT [facility] Eosinophils 0.39 0.03 - 0.48 x10(9)/L 02/06/2025 11:39 AM CDT CN[facility] Basophils 0.08 0.01 - 0.08 x10(9)/L 02/06/2025 11:39 AM CDT [facility] Blood (Blood, Venous) 02/06/2025 11:29 AM CDT 02/06/2025 11:32 AM CDT Karrie Joshua APRN C.N.P., M.S.N. LAB BLOOD ADD-ON Final Result [facility] [address] [place] [id number], [facility] in [address] [address] documented in this encounter Visit Diagnoses Diagnosis Hb-SS Disease (Sickle Cell) Vaso-Occlusive Pain Crisis (HCC)- Primary documented in this encounter Administered Medications Inactive Administered Medications - up to 3 most recent administrations Medication Order MAR Action Action Date Dose Rate Site diphenhydrAMINE injection 25 mg (BenadryL) 25 mg, intravenous, Once, On Wed02/06/25 at 1114, For 1 dose Given 02/06/2025 11:37 AM CDT 25 mg HYDROmorphone injection 2 mg (Dilaudid) 2 mg, intravenous, Once, On Wed02/06/25 at 1114, For 1 dose Given 02/06/2025 11:38 AM CDT 2 mg HYDROmorphone injection 2 mg (Dilaudid) 2 mg, intravenous, Once, On Wed02/06/25 at 1231, For 1 dose Given 02/06/2025 12:35 PM CDT 2 mg Lactated Ringer's bolus 1,000 mL 1,000 mL, intravenous, at 1,000 mL/hr, Administer over 1 Hours, Once, On Wed02/06/25 at 1121, For 1 dose New Bag 02/06/2025 11:33 AM CDT 1,000 mL 1000 mL/hr documented in this encounter Active and Recently Administered Medications Times are shown in CDT. Scheduled Medication Order 02/04/2025 02/05/2025 02/06/2025 diphenhydrAMINE injection 25 mg (BenadryL) (COMPLETED) 25 mg, intravenous, Once, On Wed02/06/25 at 1114, For 1 dose 1137 (Given - Provid er: Ana Sanders R.N.) HYDROmorphone injection 2 mg (Dilaudid) (COMPLETED) 2 mg, intravenous, Once, On Wed02/06/25 at 1114, For 1 dose 1138 (Given - Provid er: Ana Sanders R.N.) HYDROmorphone injection 2 mg (Dilaudid) (COMPLETED) 2 mg, intravenous, Once, On Wed02/06/25 at 1231, For 1 dose 1235 (Given - Provid er: Ana Sanders R.N.) Lactated Ringer's bolus 1,000 mL (COMPLETED) 1,000 mL, intravenous, at 1,000 mL/hr, Administer over 1 Hours, Once, On Wed02/06/25 at 1121, For 1 dose 1133 (New Bag - Prov ider: Ana Sanders R.N.)1243 (Stopped - Provider: Ana Sanders R.N.) documented in this encounter Care Teams Archival Records Clerk Relationship Specialty Start Date End Date None Reported, Pcp PCP - General Family Medicine 07/22/24 documented as of this encounter
--- OUTSIDE RECORDS SUMMARY | 2025-02-07 21:14 | XMS_ITS | Encounter Summary ---
Author Organization [facility] Address [address] [place] [address] Care Team Providers Care Supervisor Show Operations Name Role Phone None Reported, Pcp Primary Care Provider Unavail able Reason for Visit * Reason Comments Sickle Cell Pain Crisis Pt complains of sickle cell pain for 2 days and chest pain since today. Chest Pain Encounter Details Date Type Department Care Team (Late st Contact Info) Description 02/07/2025 9:14 PM CDT - 02/07/2025 11:29 PM CDT Emergency [facility] [address] [place] [phone] Ben Alexander, ParvezA.-C., P.A. [address] [place] [phone] Hb-SS Disease (Sickle Cell) Vaso-Occlusive Pain Crisis [...] Sign Reading Time Taken Comments Blood Pressure 113/77 02/07/2025 11:15 PM CDT Pulse 83 02/07/2025 11:15 PM CDT Temperature - - Respiratory Rate 22 02/07/2025 9:20 PM CDT Oxygen Saturation 96% 02/07/2025 11: 15 PM CDT Inhaled Oxygen Concentration - - Weight 48.9 kg (107 lb 12.9 oz) 02/07/2025 9:18 PM CDT Height - - Body Mass Index - - documented in this encounter Discharge Instructions * Discharge Instructions* Ben Alexander P.A.-C., P.A. - 02/07/2025 11:18 PM CDT Your Diagnosis: You were treated for a sickle cell pain crisis (VOC). Your pain is now manageable. You are stable to go home. Plan for Your Pain and Sickle Cell Disease Hydrate: Drink plenty of fluids (water, juice) over the next few days. Home Medications: Continue to take ALL your regular medications, especially your hydroxyurea and blood thinner (apixaban), as prescribed. Pain Medication: Use the Dilaudid for breakthrough pain only, exactly as directed on the bottle. When to Return Immediately to the Emergency Room You must return to the ED right away if you experience ANY of the following: Fever: A temperature of or higher. Breathing Problems: New or worsening shortness of breath, cough, or chest tightness. New Focal Symptoms: New numbness, weakness, or difficulty speaking. Uncontrolled Pain: If your pain becomes severe again and is not controlled by your home medication. Bleeding: Excessive bleeding or severe bruising (due to being on a blood thinner). * Attachments The following attachments cannot be sent through Care Everywhere. * Living With Sickle Cell Disease ([place]) documented in this encounter Medications at [...] as of this encounter ED Notes * Ben Alexander P.A.-Jefferson., P.A. - 02/07/2025 9:40 PM CDT The patient verbally consented to an audio recording of their visit to assist with the completion of documentation. SUBJECTIVE CHIEF COMPLAINT/REASON FOR VISIT Sickle Cell Pain Crisis (Pt complains of sickle cell pain for 2 days and chest pain since today. 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 Chief complaint is severe pain (9/10), primarily focused in the left chest, entire back, and bilateral upper arms. She characterizes the chest pain as intermittent and distinct from her prior ACS, noting that she has no difficulty breathing. She is on home Apixaban and reports medication adherence.She took Hydromorphone 4 mg PO 3 hours prior with minimal relief and reports subjective dehydration. Pertinent Negatives & Risk Assessment: Denies fever, chills, cough, shortness of breath, new unilateral swelling, focal weakness, or abdominal pain. She is currently afebrile and non-hypoxic (SpO2 99% on RA). Initial vital sign elevations have since normalized (HR 89, RR 20) following hydrationand initial analgesia, which strongly supports a primary pain/VOC etiology and reduced concern for acute cardiopulmonary compromise. REVIEW OF SYSTEMS Constitutional: Positive for diaphoresis. Negative for activity change, appetite change, chills, fatigue and fever. HENT: Negative for congestion, ear pain, rhinorrhea and sore throat. Respiratory: Negative for cough, chest tightness, shortness of breath and wheezing. Cardiovascular: Positive for chest pain. Negative for palpitations and leg swelling. Left chest wall pain Gastrointestinal: Negative for abdominal pain, diarrhea, nausea and vomiting. Genitourinary: Negative for dysuria. Musculoskeletal: Positive for back pain. Negative for myalgias and neck pain. Bilateral upper arm pain. Back pain throughout Skin: Negative for rash. Neurological: Negative for weakness, light-headedness and headaches. Psychiatric/Behavioral: Negative for confusion. OBJECTIVE Initial Vitals Temp -- Pulse Rate 02/07/252119 105 Heart Rate -- Resp Rate 02/07/252119 22 Blood Pressure 02/07/252119 116/68 SpO2 02/07/252119 98 % Pain Score 02/07/252117 9 PHYSICAL EXAMINATION Constitutional: Nursing note and vitals reviewed. She is active. She does not appear ill. No distress. Alert, oriented, mildly diaphoretic. Active and does not appear acutely toxic or in severe respiratory distress, but is in severe pain (9/10). HENT: Head: Normocephalic and atraumatic. Eyes: Conjunctivae and lids are normal. Neck: Phonation normal. Cardiovascular: Normal rate and regular rhythm. Pulmonary/Chest: Effort normal and breath sounds normal. No tachypnea. No respiratory distress. Clear to auscultation bilaterally. Effort is regular, no accessory muscle use, no retractions. No respiratory distress. Musculoskeletal: Cervical back: No pain with movement. Comments: No obvious swelling. Diffuse tenderness to palpation over the left chest wall, paraspinalmuscles throughout the back, and bilateral upper arm muscles. No point tenderness concerning for focal osteomyelitis. Neurological: Alert and oriented to person, place, and time. Normal speech. Skin: Skin is warm and normal color. No rash noted. She is diaphoretic. Psychiatric: She has a normal mood and affect. Relaxed. ASSESSMENT/PLAN Medical Decision Making Gianna Hernández is a 29-year-old female with HbSS successfully treated for an acute Vaso-occlusive Crisis (VOC). Presenting symptoms included chest, back, and arm pain (9/10), which respondedwell to multimodal analgesia. Life-Threat Exclusion and Risk Mitigation: ACS/PE: Clinically ruled out. Despite the chief complaint of chest pain and history of ACS/PE, the patient remained afebrile, non-hypoxic (99% RA), and clear-lunged throughout the course. Initial mild vital sign derangements promptly normalized following treatment. The high-risk clinical pathway for chest pain was discussed, and based on the rapid clinical stability and the patient's report that the pain was not consistent with prior ACS, imaging/labs were clinically deferred consistent with the known specialized care plan for low-risk VOC. Sepsis: Clinically ruled out due to stable vital signs and lack of fever/focal source Disposition: Patient's pain is improved, and she is requesting discharge. The patient meets criteria for safe discharge given pain control achieved, clinical stability, and exclusion of acute complications. Plan Sickle Cell VOC: Discharged to home with an oral pain regimen. Encouraged liberal hydration. Anticoagulation: Continue Apixaban 5 mg BID as prescribed. Sickle Cell Education: Strict return precautions documented and verbally reviewed regarding fever, respiratory symptoms, or new focal deficits. Assessment and Plan DIFFERENTIAL DIAGNOSES Vaso-occlusive Crisis (VOC): MOST LIKELY. Consistent with pain pattern, history of crisis, and laboratory findings from yesterday (high WBC/LDH/Retics). The pain and initial vital signs improved significantly with routine VOC management. Acute Chest Syndrome (ACS): CONSIDERED & HIGHLY UNLIKELY. Patient's chest pain is intermittent and non-pleuritic. She denies respiratory symptoms. Exam shows clear lungs, no hypoxia (SpO2 99% RA), and normal vitals (HR 89, RR 20) after initial treatment. The clinical picture is insufficient to meet the ACS definition (no infiltrate, no fever, no sustained symptoms/hypoxia). Pulmonary Embolism (PE): CONSIDERED & HIGHLY UNLIKELY. History is concerning, but the chest pain is non-pleuritic. Patient is on anticoagulation, is non- hypoxic, non-tachycardic (HR 89) now, and denies dyspnea/leg swelling. Sepsis/Occult Infection: UNLIKELY. Despite yesterday's leukocytosis, patient is afebrile, hemodynamically stable, and lacks any localizing infectious source. The leukocytosis is attributed to VOC stress. Chronic Pain Syndrome: LIKELY contributor to frequent utilization, but an acute VOC is confirmed bythe overall picture.. PROBLEMS ADDRESSED THIS VISIT Acute Vaso-occlusive Pain Crisis, Uncomplicated Chest Pain: Clinically ruled out ACS/PE. Frequent ED Utilization.. I reviewed the following external records: inpatient records. ED Course as of 02/07/252322Feb 07, [id number] ECG 12 Lead Benjamin - NSR with no ST segment or T wave changes. Normal QTC. Final Diagnoses: as of 02/07/252322 Hb-SS Disease (Sickle Cell) Vaso-Occlusive Pain Crisis (HCC) The following tests were considered but ultimately not performed: Chest X-Ray (CXR), D-Dimer/PE Workup, Repeat CBC/Lactate/Troponin: All deferred. Rationale: Clinical stability, rapid normalization of vital signs, non-focal exam, and patient's self-report of non-ACS pain superseded the need for objective testing, aligning with minimization of unnecessary resource utilization (radiation, cost) forlow-risk VOC per care plan. Escalation of care, including admission/observation, considered: Admission/Observation was NOT warranted. Patient's pain was controlled after two doses of analgesia, and she remained clinically stable with no signs of ACS, infection, or refractory pain requiring inpatient management. Patient is requ esting discharge.. My ECG interpretation is documented in ED Course. Ben Alexander P.A.-C., P.A. 02/07/25 [id number] documented in this encounter Plan of Treatment Not on file documented as of this encounter Procedures Procedure Name Priority Date/Time Associated Diagnosis Comments ECG STAT 02/07/2025 9:28 PM CDT documented in this encounter Results * ECG 12 Lead (02/07/2025 9:28 PM CDT) Ventricular Rate ECG/Min 97 BPM MUSE AL Interval 148 ms MUSE QRSD Interval 86 ms MUSE QT Interval 342 ms MUSE QTC Interval 434 ms MUSE P [place] 29 degrees MUSE R [place] 66 degrees MUSE T Wave [place] 36 degrees MUSE 02/07/2025 9:28 PM CDT 02/07/2025 9:30 PM CDT Impressions MUSE - 02/07/2025 9:30 PM CDT Normal sinus rhythm Nonspecific T wave abnormality When compared with ECG of 03-Feb-2025 20:46, No significant change was found Reviewed by JUAN Duenas Narrative Procedure Note Jemal Calle M.D., Ph.D. - 02/07/2025 IMPRESSION: Normal sinus rhythm Nonspecific T wave abnormality When compared with ECG of 03-Feb-2025 20:46, No significant change was found Reviewed by JUAN Duenas Ben Alexander P.A.-C., P.A. ECG ORDERABLES Fi nal Result MUSE NA documented in this encounter Visit Diagnoses Diagnosis Hb-SS Disease (Sickle Cell) Vaso-Occlusive Pain Crisis (HCC)- Primary documented in this encounter Administered Medications Inactive Administered Medications - up to 3 most recent administrations Medication Order MAR Action Action Date Dose Rate Site diphenhydrAMINE injection 25 mg (BenadryL) 25 mg, intramuscular, Once, On Wed02/07/25 at 2205, For 1 dose Given 02/07/2025 10:09 PM CDT 25 mg Left Ventrogluteal HYDROmorphone injection 2 mg (Dilaudid) 2 mg, intramuscular, Every 1 hour PRN, severe pain or score 7-10 of 10, Starting on Wed02/07/25 at 2204 Given 02/07/2025 11:16 PM CDT 2 mg Right Ventrogluteal Given 02/07/2025 10:10 PM CDT 2 mg R ight Ventrogluteal ketorolac injection 15 mg (ToradoL) 15 mg, intramuscular, Once, On Wed02/07/25 at 2205, For 1 dose, Adult IV push rate: Over 15 seconds. Peds IV push rate: Over 1 minute. Doses > 15 mg IV/IM are discouraged due to lack of additional analgesic benefit. Given 02/07/2025 10:10 PM CDT 15 mg Left Ventrogluteal sodium chloride 0.9 % injection 3 mL 3 mL, intravenous, Every 12 hours scheduled, First dose on Citlali 02/08/25 at 0900, Peripheral Intravenous Catheter and Rapid Infusion Catheter, when no infusion to maintain patency documented in this encounter Active and Recently Administered Medications Times are shown in CDT. Scheduled Medication Order 02/05/2025 02/06/2025 02/07/2025 diphenhydrAMINE injection 25 mg (BenadryL) (COMPLETED) 25 mg, intramuscular, Once, On Wed02/07/25 at 2205, For 1 dose 2208 (Given - Provid er: Alyssa Pimentel RSherylN.) ketorolac injection 15 mg (ToradoL) (COMPLETED) 15 mg, intramuscular, Once, On Wed02/07/25 at 2205, For 1 dose, Adult IV push rate: Over 15 seconds. Peds IV push rate: Over 1 minute. Doses > 15 mg IV/IM are discouraged due to lack of additional analgesic benefit. 0 (Given - Provid er: Alyssa Pimentel, R.N.) sodium chloride 0.9 % injection 3 mL 3 mL, intravenous, Every 12 hours scheduled, First dose on Cit[place]ali 02/08/25 at 0900, Peripheral Intravenous Catheter and Rapid Infusion Catheter, when no infusion to maintain patency PRN Medication Order 02/05/2025 02/06/2025 02/07/2025 HYDROmorphone injection 2 mg (Dilaudid) 2 mg, intramuscular, Every 1 hour PRN, severe pain or score 7-10 of 10, Starting on Wed02/07/25 at 2204 2210 (Given - Provid er: Diana TimN.)2318 (Given - Provider: Alyssa Pimentel R.N.) documented in this encounter Care Teams Supervisor Show Operations Relationship Specialty Start Date End Date None Reported, Pcp PCP - General Family Medicine 07/22/24 documented as of this encounter
--- OUTSIDE RECORDS SUMMARY | 2025-02-08 13:13 | XMS_ITS | Encounter Summary ---
Author Organization [facility] Address [address] [place] [address] Care Team Providers Care Blind Eyeletter Name Role Phone Needs Pcp, Assignment Primary Care Provider Reason for Visit * Reason Comments Sickle Cell Pain Encounter Details Date Type Department Care Team (Late st Contact Info) Description 02/08/2025 1:13 PM CDT - 02/08/2025 3:07 PM CDT Emergency [facility] Emergency [address] [place] [address] Alex Dubon MD [address] [place] [address] [id number] Sickle-cell disease with pain (HRC) (Primary Dx) Discharge Disposition: Home Social History Tobacco Use Types Packs/Day Years Used Date Smoking Tobacco: Never Assessed Comments No Sex and Gender Information Value Date Recorded Sex Assigned at Not on file Legal Sex Female 1:12 PM CDT Gender Identity Not on file Sexual Orientation Not on file documented as of this encounter Last Filed Vital Signs Vital Sign Reading Time Taken Comments Blood Pressure 118/47 02/08/2025 1:22 PM CDT Pulse 98 02/08/2025 1:22 PM CDT Temperature 36.7 C (98 F) 02/08/2025 1:22 PM CDT Respiratory Rate 18 02/08/2025 1:22 PM CDT Oxygen Saturation 99% 02/08/2025 1:22 PM CDT Inhaled Oxygen Concentration - - Weight - - Height - - Body Mass Index - - documented in this encounter Discharge Instructions * Discharge Instructions* Alex Dubon MD - 02/08/2025 3:02 PM CDT Please call your hematology team in the next day. Please return to the emergency department with return of symptoms, worsening of symptoms or other concerns. documented in this encounter Medications at Time of Discharge apixaban (ELIQUIS) 5 MG tablet Take 1 Tablet (5 mg) by mouth. 09/10/2024 Ferrous Sulfate (IRON OR) Take 1 Tablet by mouth daily. FLUoxetine (PROZAC) 40 MG capsule Take 1 Capsule (40 mg) by mouth. 10/13/2024 Glutamine, Sickle Cell, 5 g PACK Take 30 g by mouth. hydroxyurea (HYDREA) 500 MG capsule Take 4 Capsules (2,000 mg) by mouth. documented as of this encounter ED Notes * Yadi Hernandez RN - 02/08/2025 3:[address] [facility] Emergency Department Nursing Discharge Note Vital Signs: BP: 118/47 Temp: 98 ??F (36.7 ??C)Temp src: Temporal Artery Pulse: 98 Resp: 18 SpO2: 99 % Patient discharged: to Home. Patient accompanied by: friend. Transported by: Walked Valuables were taken home by patient: yes Work/School Slip given: N/A Discharge instructions given and explained to patient and/or parent: Yes Specific treatments/teaching done regarding treatment/care today: AVS reviewed and questions answered. Patient/Parent verbalized understanding: yes Discharge prescriptions given to patient and or parents: No Patient level of pain on discharge: improved Patients condition on discharge related to chief complaint and treatment in ED: Improved ---End of Report--- * Yadi Hernandez RN - 02/08/2025 2:03 PM CDT Pt's IV infiltrated. Pt refusing second IV placement stating I'll just drink water. * Alex Dubon MD - 02/08/2025 1:56 PM CDT [facility] Emergency Medicine Visit Note Chief Complaint: Sickle Cell Pain HPI Gianna Hernández is an 29 y.o. female with Sickle Cell disease (HbSS), functional asplenia, previous DVT and PE on eliquis, chronic pain, previous cholecystectomy presenting to the ED with pain that she associates as her Sickle Cell pain crises. Typically follows with the [facility]. Reviewed most recent visit from 02/02/25. Pt notes pain in arms and back that she associates with her SS pain crises. Denies chest or abdominal pain. Denies fever, cough, dysuria, hematuria. States she is taking her Eliquis. Denies knew leg swelling. States last time she was seen anywhere for her SS disease was 3 days ago. Notes she takes her hydroxyurea as prescribed. Review of chart indicates pt was seen yesterday at [place] and seen at of on 02/02/25. Note from [facility] indicates her care team is recommending change in her medications and is recommending PO dilaudid and robaxin and recommending against IV medications. Triage Vitals [02/08/25 1322] Temp 98 ??F (36.7 ??C) Temp src Temporal Art Pulse 98 Resp 18 BP 118/47 SpO2 99 % Physical Exam GENERAL: female patient lying in bed, nontoxic appearing. HEENT: EOMI, PERRL, anicteric CARDIAC: Regular rate, regular rhythm; normal S1, S2; no murmurs, rubs or gallops; LUNGS: clear to ascultation bilaterally, no wheezes, rales or rhonchi, no accessory muscle use, ABD: soft, non-tender, non-distended; no guarding, rigidity or peritoneal signs; BACK: No focal tenderness, no step-offs, no CVA tenderness SKIN: Warm and dry MSK: WWP, radial and DP pulses present; no peripheral edema NEURO: A&O x3, OLIVEIRA, No gross focal deficits noted. Ambulates without difficulty. NIHSS 0. Alex Dubon MD ED Course as of 02/08/25 1503 Citlali Feb 08, 2025 1402 Pt declining IV or IV hydration d/t difficulty with IV. Wants to take oral intake instead. [MB] 1408 WBC(!): 16.5 [MB] 1408 Hemoglobin(!): 8.5 [MB] 1408 BMP without significant findings. Pt denies concern for chest pain, focal neurologic symptoms,abdominal pain or other concerns. No evidence of respiratory distress, hypoxia or fever. [MB] 1411 Medications ordered per review of pt's recent noted care plan from . Pt denies symptoms to suggest PE, acute coronary syndrome, acute chest syndrome, sepsis and is without VS abnormalities. [MB] 1500 Attempted to contact pt's director of counseling. In the interim, pt states she is ready to be discharged. She displays the capacity to make her own medical decisions. Recommended she follow up with her care group. [MB] 1502 Reticulocyte count has not returned but result reviewed from pt's most recent result yesterday. [MB] ED Course User Index [MB] Alex Dubon MD Clinical Impressions as of 02/08/25 1503 Sickle-cell disease with pain (HRC) * Yadi Hernandez RN - 02/08/2025 1:[address] [facility] Emergency Department Triage Note Chief Complaint: sickle cell crisis. Date of occurrence: x2 days. Time of onset/injury (clock time): N/A Pre-Hospital Treatment: N/A Assessment/History: Pt states she has hx of sickle cell and is concerned she has sickle cell crisis. C/o generalized pain throughout her body. Symptoms started 2 days ago. Took PO dilaudid at 1030. Treatments/Monitoring Initiated: iv, labs, vs. Arrived to ER with: self EMS Report Time and Agency: N/A documented in this encounter Plan of Treatment Not on file documented as of this encounter Procedures Procedure Name Priority Date/Time Associated Diagnosis Comments BASIC METABOLIC PANEL STAT 02/08/2025 1:31 PM CDT COMPLETE BLOOD COUNT-NO DIFF STAT 02/08/2025 1:31 PM CDT RETIC, AUTOMATED STAT 02/08/2025 1:31 PM CDT documented in this encounter Results * (ABNORMAL) Retic, Automated (02/08/2025 1:31 PM CDT) [facility] Retic % 14.50(H) 0.77 - 2.36 % 02/08/2025 3:21 PM CDT [facility] Retic Absolute 0.363(H) 0.038 - 0.113 x10(6)/uL 02/08/2025 3:21 PM [facility] Blood Venipuncture / Unknown 02/08/2025 1:31 PM CDT 02/08/2025 1:36 PM CDT us Alex Dubon MD LAB_1 Final Result [facility] CLIA: [id number] [address] [place] [address] * (ABNORMAL) HEMOGRAM/PLTS (02/08/2025 1:31 PM CDT) [facility] WBC 16.5(H) 3.5 - 10.5 x10(9)/L 02/08/2025 1:40 PM CDT [facility] RBC 2.48(L) 3.90 - 5.03 x10(12)/L 02/08/2025 1:40 PM T [facility] Hemoglobin 8.5(L) 12.0 - 15.5 g/dL 02/08/2025 1:40 PM T [facility] HCT 24.6(L) 34.9 - 44.5 % 02/08/2025 1:40 PM CDT [facility] MCV 99.2 80.0 - 100.0 fL 02/08/2025 1:40 PM T [facility] MCH 34.3(H) 27.6 - 33.3 pg 02/08/2025 1:40 PM CDT [facility] MCHC 34.6 31.5 - 35.2 g/dL 02/08/2025 1:40 PM T [facility] RDW 17.5(H) 11.9 - 15.5 % 02/08/2025 1:40 PM CDT [facility] Platelets 430 150 - 450 x10(9)/L 02/08/2025 1:40 PM [facility] Blood Venipuncture / Unknown 02/08/2025 1:31 PM CDT 02/08/2025 1:36 PM CDT us Alex Dubon MD LAB_1 Final Result [facility] CLIA: [id number] [address] [place] [address] * (ABNORMAL) BASIC METABOLIC PANEL (02/08/2025 1:31 PM CDT) Sodium 139 136 - 145 mmol/L 02/08/2025 1:53 PM [facility] Potassium 4.6 3.5 - 5.1 mmol/L 02/08/2025 1:53 PM [facility] Chloride 111(H) 98 - 109 mmol/L 02/08/2025 1:53 PM [facility] CO2 19(L) 20 - 29 mmol/L 02/08/2025 1:53 PM [facility] Anion Gap 9 6 - 16 mmol/L 02/08/2025 1:53 PM [facility] Calcium 9.0 8.4 - 10.4 mg/dL 02/08/2025 1:53 PM [facility] BUN 11 7 - 26 mg/dL 02/08/2025 1:53 PM [facility] Creatinine 0.62 0.55 - 1.02 mg/dL 02/08/2025 1:53 PM [facility] Glucose 96 70 - 100 mg/dL 02/08/2025 1:53 PM [facility] Comment:The given reference range is for the fasting state. Non-fasting reference range for glucose is 70 - 180 mg/dL. GFR, Estimated >60 >60 mL/min/1.7 3m2 02/08/2025 1:53 PM [facility] Blood Venipuncture / Unknown 02/08/2025 1:31 PM CDT 02/08/2025 1:36 PM CDT us Alex Dubon MD LAB_1 Final Result [facility] CLIA: [id number] [address] [place] [address] documented in this encounter Visit Diagnoses Diagnosis Sickle-cell disease with pain (HRC)- Primary Other sickle-cell disease with crisis documented in this encounter Administered Medications Inactive Administered Medications - up to 3 most recent administrations Medication Order MAR Action Action Date Dose Rate Site HYDROmorphone (DILAUDID) tablet 4 mg 4 mg, Oral, ONCE, On Citlali 02/08/25 at 1400, For 1 dose Given 02/08/2025 2:00 PM CDT 4 mg methocarbamol (ROBAXIN) tablet 1,500 mg 1,500 mg, Oral, ONCE, On Citlali 02/08/25 at 1400, For 1 dose Given 02/08/2025 2:00 PM CDT 1,500 mg sodium chloride 0.9% bolus 1,000 mL 1,000 mL, Intravenous, Administer over 1 Hours, ONCE, On Citlali 02/08/25 at 1345, For 1 dose Started 02/08/2025 2:00 PM CDT 1,000 mL documented in this encounter Active and Recently Administered Medications Times are shown in CDT. Scheduled Medication Order 02/06/2025 02/07/2025 02/08/2025 HYDROmorphone (DILAUDID) tablet 4 mg (COMPLETED) 4 mg, Oral, ONCE, On Citlali 02/08/25 at 1400, For 1 dose 1400 (Given - Provid er: Yadi Hernandez RN) methocarbamol (ROBAXIN) tablet 1,500 mg (COMPLETED) 1,500 mg, Oral, ONCE, On Citlali 02/08/25 at 1400, For 1 dose 1400 (Given - Provid er: Yadi Hernandez RN) sodium chloride 0.9% bolus 1,000 mL (COMPLETED) 1,000 mL, Intravenous, Administer over 1 Hours, ONCE, On Citlali 02/08/25 at 1345, For 1 dose 1400 (Started - Prov ider: Yadi Hernandez, SOFIA)1403 (Stopped - Provider: Yadi Hernandez RN) documented in this encounter Care Teams Blind Eyeletter Relationship Specialty Start Date End Date Needs Pcp, [place] [address] PCP - General 02/08/25 documented as of this encounter
--- OUTSIDE RECORDS SUMMARY | 2025-02-09 01:48 | XMS_ITS | Encounter Summary ---
Author Organization [facility] Address [address] [place] [address]. [place] [address] Care Team Providers Care Case Repairer Name Role Phone RoxyElvirac Unavailable Unavailable Case Samuel MD Unavailable [phone] Juhi Benson RN Unavailable Unavailable Veronica Joseph MD Primary Care Provider [phone] Olinda Vora APRN INVENTORY TAKER Unavailable [phone] Stiven Stanley Unavailable Star Galarza MD Unavailable [phone] Aliyah Hudson RN Unavailable Unavailable Encounter Details Date Type Department Care Team (Late st Contact Info) Description 12/25/2024 Results Follow-Up [facility] [address] [place] [address] Noni Jean, RN Social History Tobacco Use Types Packs/Day [...] on file Legal Sex Female 8:25 AM BIOTECH PRODUCTION SPECIALIST Gender Identity Not on file Sexual Orientation Not on file documented as of this encounter Plan of Treatment Upcoming Encounters Date Type Department Care Team (Late st Contact Info) Description 02/15/2025 10:30 AM CDT Lab [facility] [address] [phone] Olinda Vora APRN INVENTORY TAKER [address] [place] [address] 02/15/2025 11:00 AM CDT Oncology Visit [address] [phone] Olinda Vora APRN INVENTORY TAKER [address] [place] [address] 04/09/2025 3:00 PM BIOTECH PRODUCTION SPECIALIST Lab [address] [phone] Case Samuel MD [address] [facility] [address], [address] [place], [place] [address] 04/09/2025 3:30 PM BIOTECH PRODUCTION SPECIALIST Oncology Visit [facility] [address] [place] [phone] Case Samuel MD [address] [facility] [address], [address] [place], [place] [phone] documented as of this encounter Goals Goal [...] on filedocumented in this encounter Care Teams Case Repairer Relationship Specialty Start Date End Date Veronica Joseph MD [address] [place], [place] [address] PCP - General Family Medicine 06/18/24 Mor Ramsey Medical Student 04/03/24 Case Samuel MD [address] [place] [address], [address] [place], [place] [address] Assigned Pediatric Specialist Provider 05/18/24 Juhi Benson, SOFIA Specialty Design Draftsman Hematology & Oncology 05/29/24 Olinda Vora APRN INVENTORY TAKER [address] [place] [address] Assigned Cancer Care Provider 08/16/24 Stiven Stanley LP [address] [facility] [place] [address] Psychologist PSYCHOLOGIST CLINICAL 10/25/24 Star Galarza MD [facility]. [address] [place] [address] Home Infusion Following Provider Infectious Diseases 11/07/24 Aliyah Hudson RN Home Infusion Labview Programmer 11/16/24 01/04/25 documented as of this encounter
--- OUTSIDE RECORDS SUMMARY | 2025-02-09 01:48 | XMS_ITS | Encounter Summary ---
Author Organization [facility] Address [address] [place] [address]. [place] [address] Care Team Providers Care Sketcher Name Role Phone Mor Ramsey Unavailable Unavailable Case Samuel MD Unavailable [phone] Juhi Benson RN Unavailable Unavailable Veronica Joseph MD Primary Care Provider [phone] Olinda Vora APRN BRIDGE INSTRUCTOR Unavailable [phone] Stiven Stanley Unavailable [place] Galarza MD Unavailable [phone] Aliyah Hudson RN Unavailable Unavailable [place] RN Unavailable Unavailable Encounter Details Date Type Department Care Team (Late st Contact Info) Description 12/20/2024 [facility] Medical Advice [facility] [address] [place] [address] Case Samuel MD [address] [place] [address], [address] [place], [place] [address] Social History Tobacco Use Types Packs/Day Years [...] in an overnight fdc, or couch-surfing.) Yes 11/09/2024 Are you worried [...] file Legal Sex Female 8:25 AM HOME CARE AIDE Gender Identity Not on file Sexual Orientation Not on file documented as of this encounter Plan of Treatment Upcoming Encounters Date Type Department Care Team (Late st Contact Info) Description 02/15/2025 10:30 AM CDT Lab [facility] [address] [phone] Olinda Vora APRN [address] [address] 02/15/2025 11:00 AM CDT Oncology Visit [address] [phone] Olinda Vora APRN [address] [address] 04/09/2025 3:00 PM HOME CARE AIDE Lab [facility] [address] [phone] Case Samuel MD [address] [place] [address], [address] [place] [address] 04/09/2025 3:30 PM HOME CARE AIDE Oncology Visit [facility] [address] [phone] Case Samuel MD [address] [place], [place] [address], [address] [place] [address] documented as of this encounter Goals Goal [...] on filedocumented in this encounter Care Teams Sketcher Relationship Specialty Start Date End Date Veronica Joseph MD [address] [place] [address] PCP - General Family Medicine 06/18/24 Mor Ramsey Medical Student 04/03/24 Case Samuel MD [address] [place] [address] [facility] [address], [address] [place] [address] Assigned Pediatric Specialist Provider 05/18/24 Juhi Benson, RN Specialty Loan Operations Specialist Hematology & Oncology 05/29/24 Olinda Vora APRN BRIDGE INSTRUCTOR [address] [place] [address] Assigned Cancer Care Provider 08/16/24 Stiven Stanley LP [address] [place] [address] Psychologist PSYCHOLOGIST CLINICAL 10/25/24 [place] Galarza MD [facility] [address] [facility] [address] [place], [place] [address] Home Infusion Following Provider Infectious Diseases 11/07/24 Aliyah Hudson, SOFIA Home Infusion Manager Inventory Management 11/16/24 01/04/25 [place], SOFIA I Resource Team 12/10/24 12/20/24 documented as of this encounter
--- OUTSIDE RECORDS SUMMARY | 2025-02-09 01:48 | XMS_ITS | Encounter Summary ---
Author Organization [facility] Address [address] [place] [address]. [place] [address] Care Team Providers Care Classroom Paraprofessional Name Role Phone Mor Ramsey Unavailable Unavailable Case Samuel MD Unavailable [phone] Juhi Benson RN Unavailable Unavailable Veronica Joseph MD Primary Care Provider [phone] Olinda Vora APRN MARKER MACHINE ATTENDANT Unavailable [phone] Stiven Stanley Unavailable Star Galarza MD Unavailable [phone] Aliyah Hudson RN Unavailable Unavailable Reason for Visit * Reason Onset Date Comments Refill Request 12/28/2024 Encounter Details Date Type Department Care Team (Late st Contact Info) Description 12/28/2024 [facility] [address] [place] [address] Case Samuel MD [address] [place] [address], [address] [place] [address] Refill Request Social History Tobacco Use Types [...] on file Legal Sex Female 8:25 AM NUCLEAR ENGINEER Gender Identity Not on file Sexual Orientation Not on file documented as of this encounter Miscellaneous Notes * Telephone Encounter - Hawa Gordon RN - 12/28/2024 11:01 AM CDT Images from the original note were not included. 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 none Is pain being adequately controlled on the current regimen?: okay, requires intermittent ivf/pain Experiencing any side effects from medication?: denies Date of most recent appointment: 12/18/2024 No show Any No Show Visits:yes on 12/18/2024 Next appointment: 01/16/2025 Tatiana Phillipbola ALMONTE Last fill date and by whom: dr. Samuel on 12/20/2024 HOUSE WORKER GENERAL Reviewed: yes Send to provider: dr. samuel documented in this encounter Plan of Treatment Upcoming Encounters Date Type Department Care Team (Late st Contact Info) Description 02/15/2025 10:[address] [facility] [address] [phone] Olinda Vora APRN MARKER MACHINE ATTENDANT [address] [place] [id number] 02/15/2025 11:00 AM CDT Oncology Visit [address] [phone] Olinda Vora APRN MARKER MACHINE ATTENDANT [address] [place] [address] 04/09/2025 3:00 PM NUCLEAR ENGINEER Lab [address] [phone] Case Samuel MD [address] [place] [address] 484, [address] [place], [place] [address] 04/09/2025 3:30 PM NUCLEAR ENGINEER Oncology Visit [facility] [address] [phone] Case Samuel MD [address] [place] [address] 484, [address] [place], [place] [address] documented as of this encounter Goals Goal Patient Goal Type Associated Problems Recent Progress Patient-Stated? Author Pain Management General On track( 025 2:37 PM CDT) Yes Marcelino, Juhi, RN Note: Goal Statement: I will establish [...] crisis documented in this encounter Care Teams Classroom Paraprofessional Relationship Specialty Start Date End Date Veronica Joseph MD [address] [place] [address] PCP - General Family Medicine 06/18/24 Mor Ramsey Medical Student 04/03/24 Case Samuel MD [address] [facility] [address], [address] [place], [place] [phone] Assigned Pediatric Specialist Provider 05/18/24 Juhi Benson, RN Specialty Document Controller Hematology & Oncology 05/29/24 Olinda Voar APRN MARKER MACHINE ATTENDANT [address] [place] [address] Assigned Cancer Care Provider 08/16/24 Stiven Stanley LP [address] [place] [address] Psychologist PSYCHOLOGIST CLINICAL 10/25/24 Star Galarza MD [facility] [address] [place], [place] [address] Home Infusion Following Provider Infectious Diseases 11/07/24 Aliyah Hudson RN Home Infusion Supplier Quality Specialist 11/16/24 01/04/25 documented as of this encounter
--- OUTSIDE RECORDS SUMMARY | 2025-02-09 01:48 | XMS_ITS | Encounter Summary ---
Author Organization [place] Address [address] [place] [address]. [place] [address] Care Team Providers Care Food Service Ambassador Name Role Phone RoxyElvirac Unavailable Unavailable Case Samuel MD Unavailable [phone] Juhi Benson RN Unavailable Unavailable Veronica Joseph MD Primary Care Provider [phone] Olinda Vora APRN PAIN MANAGEMENT NURSE Unavailable [phone] Stiven Stanley Unavailable Star Galarza MD Unavailable [phone] Aliyah Hudson RN Unavailable Unavailable Encounter Details Date Type Department Care Team (Latest Contact Info) Description 12/27/2024 Travel Social History Tobacco Use Types Packs/Day [...] on file Legal Sex Female 8:25 AM REPAIR SERVICE DISPATCHER Gender Identity Not on file Sexual Orientation Not on file documented as of this encounter Plan of Treatment Upcoming Encounters Date Type Department Care Team (Late st Contact Info) Description 02/15/2025 10:30 AM CDT Lab [facility] [address] [address] Olinda Vora APRN PAIN MANAGEMENT NURSE [address] [place] [address]405 02/15/2025 11:00 AM CDT Oncology Visit [facility] Cancer [address] [address] Olinda Vora APRN PAIN MANAGEMENT NURSE [address] [place] [address] 04/09/2025 3:00 PM REPAIR SERVICE DISPATCHER Lab [facility] Cancer [address] [address] Case Samuel MD [address] [place] [address] 484, [address] [place], [place] [phone] 04/09/2025 3:30 PM REPAIR SERVICE DISPATCHER Oncology Visit [facility] 909 [place] [address] Case Samuel MD 420 [facility] 484, RO[address] [place] [address] documented as of this encounter Goals Goal [...] on filedocumented in this encounter Care Teams Food Service Ambassador Relationship Specialty Start Date End Date Veronica Joseph MD [address] [place] [address] PCP - General Family Medicine 06/18/24 Mor Ramsey Medical Student 04/03/24 Case Samuel MD [address] [place] [address] 484, RO[address] [place] [address] Assigned Pediatric Specialist Provider 05/18/24 Juhi Benson, RN Specialty Checker Cashier Hematology & Oncology 05/29/24 Olinda Vora APRN PAIN MANAGEMENT NURSE 909 [place] [address] Assigned Cancer Care Provider 08/16/24 Stiven Stanley LP 1575 [place] [address] Psychologist PSYCHOLOGIST CLINICAL 10/25/24 Star Galarza MD [facility] [address] [facility]. [address] [place] [address] Home Infusion Following Provider Infectious Diseases 11/07/24 Aliyah Hudson RN Home Infusion Fast Food Attendant 11/16/24 01/04/25 documented as of this encounter
--- OUTSIDE RECORDS SUMMARY | 2025-02-09 01:49 | XMS_ITS | Encounter Summary ---
Author Organization [place] Address [address] [place] [address]. [place] [address] Care Team Providers Care E Commerce Strategist Name Role Phone Elvira Ramseyc Unavailable Unavailable Case Samuel MD Unavailable [phone] Juhi Benson RN Unavailable Unavailable Veronica Joseph MD Primary Care Provider [phone] Olinda Vora APRN COBOL APPLICATION DEVELOPER Unavailable [phone] Stiven Stanley Unavailable Carmen Casillas RN Unavailable [phone] Star Galarza MD Unavailable [phone] Suzanne Carter RN Unavailable Unavailable Enrico Mckoy RN Unavailable UnavailAliyah frey Do RN Unavailable Unavailable Juhi Smith RN Unavailable UnavailEnrico Cruz RN Unavailable UnavailNorth Alejandro RN Unavailable Unavailable Encounter Details Date Type Department Care Team (Late st Contact Info) Description 10/26/2024 [facility] [place] [id number] [address] Lucero Sheffield Social History Tobacco Use Types Packs/Day Years Used Date Smoking Tobacco: Never Smokeless Tobacco: Never Alcohol Use Standard Drinks/Week Comments Not Currently 0 (1 standard drink = 0.6 oz pur e alcohol) Food Insecurity Answer Date Recorded Within the past 12 months, d id you worry that your food would run out before you got money to buy more? No 10/10/2024 Within the past 12 months, d id the food you bought just not last and you didn t have money to get more? No 10/10/2024 Housing Stability Answer Date Recorded Do you have housing? (Sae montes is defined as stable permanent housing and does not include staying outside in a car, in a tent, in an abandoned building, in an overnight alf, or couch-surfing.) Yes 10/10/2024 Are you worried about losing your housing? No 10/10/2024 Financial Resource Strain Answer Date R ecorded Within the past 12 months, h ave you or your family members you live with been unable to get utilities (heat, electricity) when it was really needed? No 10/10/2024 Transportation Needs Answer Date Record ed Within the past 12 months, h as lack of transportation kept you from medical appointments, getting your medicines, non-medical meetings or appointments, work, or from getting things that you need? No 10/10/2024 Interpersonal Safety Answer Date Record ed Do you feel physically and e motionally safe where you currently live? Yes 10/10/2024 Within the past 12 months, h ave you been hit, slapped, kicked or otherwise physically hurt by someone? No 10/10/2024 Within the past 12 months, h ave you been humiliated or emotionally abused in other ways by your partner or ex-partner? No 10/10/2024 Comments No Sex and Gender Information Value Date Recorded Sex Assigned at Not on file Legal Sex Female 8:25 AM AMBULANCE MECHANIC Gender Identity Not on file Sexual Orientation Not on file documented as of this encounter Plan of Treatment Upcoming Encounters Date Type Department Care Team (Late st Contact Info) Description 02/15/2025 10:[address] [facility] Cancer [address] [address] Olinda Vora APRN [address] [id number] 02/15/2025 11:00 AM CDT Oncology Visit [facility] Cancer [address] [address] nataliiaOlinda APRN COBOL APPLICATION DEVELOPER [address] [place] [address] [phone] 04/09/2025 3:00 PM AMBULANCE MECHANIC Lab [facility] 909 [place] [phone] Case Samuel MD [address] [place] [address] 484, [address] [place], [place] [address] 04/09/2025 3:30 PM AMBULANCE MECHANIC Oncology Visit [address] [phone] Case Samuel MD [address] [place] [address] 484, [address] [place], [place] 69[address] documented as of this encounter Goals Goal [...] Last Indicated Resolved Time Rule Out COVID-19 11/02/2024 11/02/2024 11/03/2024 12:23 AM CDT documented as of this encounter Care Teams E Commerce Strategist Relationship Specialty Start Date End Date Veronica Joseph MD [address] [place] [address] PCP - General Family Medicine 06/18/24 Elvira Ramseyc Medical Student 04/03/24 Case Samuel MD 420 [facility] 484, [address] [place] [address] Assigned Pediatric Specialist Provider 05/18/24 Juhi Benson, RN Specialty Boom Truck Driver Hematology & Oncology 05/29/24 Olinda Vora APRN COBOL APPLICATION DEVELOPER [address] [place] [address] Assigned Cancer Care Provider 08/16/24 Stiven Stanley LP 1575 [place] [address] Psychologist PSYCHOLOGIST CLINICAL 10/25/24 Carmen Casillas, SOFIA I Resource Team Primary Care - CC 11/06/24 11/08/24 Star Galarza MD [facility] [address] [place] [address] Home Infusion Following Provider Infectious Diseases 11/07/24 Suzanne Carter, SOFIA Home Infusion Medical Interpreter 11/08/24 11/16/24 Enrico Mckoy, RN [facility] Resource Team 11/14/24 11/15/24 Aliyah Hudson RN Home Infusion Medical Interpreter 11/16/24 01/04/25 Juhi [place], SOFIA [facility] Resource Team 12/03/24 12/05/24 Enrico Mckoy RN [facility] Resource Team 12/05/24 12/06/24 [place], SOFIA [facility] Resource Team 12/10/24 12/20/24 documented as of this encounter
--- OUTSIDE RECORDS SUMMARY | 2025-02-09 01:49 | XMS_ITS | Encounter Summary ---
Author Organization [place] Address [address] [place] [address]. [place] [address] Care Team Providers Care Traveling Buyer Name Role Phone RoxyElvirac Unavailable Unavailable Case Samuel MD Unavailable [phone] Juhi Benson RN Unavailable Unavailable Veronica Joseph MD Primary Care Provider [phone] Olinda Vora APRN MACHINE I CUTTER Unavailable [phone] Stiven Stanley Unavailable Star Galarza MD Unavailable [phone] Aliyah Hudson RN Unavailable Unavailable Encounter Details Date Type Department Care Team (Late st Contact Info) Description 12/26/2024 Telephone [facility] [address] [place] [address] [place], [place] Social History Tobacco Use Types Packs/Day Years [...] on file Legal Sex Female 8:25 AM ARCHITECTURE FACULTY MEMBER Gender Identity Not on file Sexual Orientation Not on file documented as of this encounter Miscellaneous Notes * Telephone Encounter - Elicia Mahan MA - 12/26/2024 11:49 AM CDT Pt cancelled nurse visit for today stating she is out of town adue to sisters and will call 12/28/24 to schedule picc pull. documented in this encounter Plan of Treatment Upcoming Encounters Date Type Department Care Team (Late st Contact Info) Description 02/15/2025 10:30 AM CDT Lab [place] [id number] [place] [address] Olinda Vora APRN [address] 154935 02/15/2025 11:00 AM CDT Oncology Visit [facility] [address] [phone] Olinda Vora APRN MACHINE I CUTTER [address] [place] [address] 04/09/2025 3:00 PM ARCHITECTURE FACULTY MEMBER Lab [address] [address] Case Samuel MD [address] [place] [address] 484, [address] [place], [place] 6[address] 04/09/2025 3:30 PM ARCHITECTURE FACULTY MEMBER Oncology Visit [address] [phone] Case Samuel MD [address] [place] [address] 484, [address] [place], [place] [address] documented as of this encounter Goals Goal [...] on filedocumented in this encounter Care Teams Traveling Buyer Relationship Specialty Start Date End Date Veronica Joseph MD [address] [place] [address] PCP - General Family Medicine 06/18/24 Elvira Ramseyc Medical Student 04/03/24 Case Samuel MD 420 [facility] 484, [address] [place], [place] 421085 Assigned Pediatric Specialist Provider 05/18/24 Juhi Benson, SOFIA Specialty Events Administrative Assistant Hematology & Oncology 05/29/24 Olinda Vora APRN MACHINE I CUTTER 909 [place], [place] 2589[address] Assigned Cancer Care Provider 08/16/24 Stiven Stanley LP [address] [place] [address] Psychologist PSYCHOLOGIST CLINICAL 10/25/24 Star Galarza MD [facility] [address] [place] [address] Home Infusion Following Provider Infectious Diseases 11/07/24 Aliyah Hudson, SOFIA Home Infusion Salesperson Flowers 11/16/24 01/04/25 documented as of this encounter
--- OUTSIDE RECORDS SUMMARY | 2025-02-09 01:49 | XMS_ITS | Encounter Summary ---
Author Organization [place] Address [address] [place] [address]. [place] [address] Care Team Providers Care Hims Manager Name Role Phone RoxyElvirac Unavailable Unavailable Case Samuel MD Unavailable [phone] Juhi Benson RN Unavailable Unavailable Veronica Joseph MD Primary Care Provider [phone] Olinda Vora APRN BUILDING SUPPLIES SALESPERSON RETAIL Unavailable [phone] Stiven Stanley Unavailable Star Galarza MD Unavailable [phone] Aliyah Hudson RN Unavailable Unavailable Encounter Details Date Type Department Care Team (Late st Contact Info) Description 12/26/2024 Telephone [facility] [address] [place] [phone] [place], [place] Social History Tobacco Use Types Packs/Day Years [...] an overnight senior care, or couch-surfing.) Yes 11/09/2024 Are you worried [...] on file Legal Sex Female 8:25 AM DECKHAND SHRIMP BOAT Gender Identity Not on file Sexual Orientation Not on file documented as of this encounter Plan of Treatment Upcoming Encounters Date Type Department Care Team (Late st Contact Info) Description 02/15/2025 10:30 AM CDT Lab [facility] Cancer [address] [phone] Olinda Vora APRN BUILDING SUPPLIES SALESPERSON RETAIL [address] [place] [address] 02/15/2025 11:00 AM CDT Oncology Visit [facility] Cancer [address] [phone] Olinda Vora APRN BUILDING SUPPLIES SALESPERSON RETAIL [address] [place] [address] 04/09/2025 3:00 PM DECKHAND SHRIMP BOAT Lab [facility] Cancer [address] [phone] Case Samuel MD 420 [facility] 484, [address] [place] [address] 04/09/2025 3:30 PM DECKHAND SHRIMP BOAT Oncology Visit [facility] Cancer [facility] 909 [place] [phone] Case Samuel MD 420 [facility] 484, [address] [place] [address] documented as of this encounter Goals Goal [...] on filedocumented in this encounter Care Teams Hims Manager Relationship Specialty Start Date End Date Veronica Joseph MD [address] [place] [address] PCP - General Family Medicine 06/18/24 Mor Ramsey Medical Student 04/03/24 Case Samuel MD [address] [place] [address] 484, [address] [place] [address] Assigned Pediatric Specialist Provider 05/18/24 Juhi Benson, RN Specialty Annealing Torch Operator Hematology & Oncology 05/29/24 Olinda Vora APRN BUILDING SUPPLIES SALESPERSON RETAIL 9 [place] [address] Assigned Cancer Care Provider 08/16/24 Stiven Stanley LP [address] [place] [address] Psychologist PSYCHOLOGIST CLINICAL 10/25/24 Star Galarza MD [facility] [address] [facility]. [address] [place], [place] [address] Home Infusion Following Provider Infectious Diseases 11/07/24 Aliyah Hudson RN Home Infusion Stockroom Attendant 11/16/24 01/04/25 documented as of this encounter
--- OUTSIDE RECORDS SUMMARY | 2025-02-09 01:49 | XMS_ITS | Encounter Summary ---
Author Organization [place] Address [address] [place] [address]. [place] [address] Care Team Providers Care Navy Airspace Officer Name Role Phone Elvira Ramseyc Unavailable Unavailable Case Samuel MD Unavailable [phone] Juhi Benson RN Unavailable Unavailable Veronica Joseph MD Primary Care Provider [phone] Olinda Vora APRN STENOTYPIST Unavailable [phone] Stiven Stanley Unavailable Star Galarza MD Unavailable [phone] Aliyah Hudson RN Unavailable Unavailable Encounter Details Date Type Department Care Team (Late st Contact Info) Description 01/01/2025 Results Follow-Up [facility] Services - General Medicine & Pediatrics [address] [place] [phone] Carmen Dominguez, LESLEY [address] [place] [address] Social History Tobacco Use Types Packs/Day Years [...] file Legal Sex Female 8:25 AM TIRE MOLD TESTER Gender Identity Not on file Sexual Orientation Not on file documented as of this encounter Plan of Treatment Upcoming Encounters Date Type Department Care Team (Late st Contact Info) Description 02/15/2025 10:[address] [facility] Cancer [address] [address] Olinda Vora APRN STENOTYPIST [address] [place] [phone] 02/15/2025 11:00 AM CDT Oncology Visit [facility] [address] [phone] Olinda Vora APRN STENOTYPIST [address] [place] [address] [phone] 04/09/2025 3:00 PM TIRE MOLD TESTER Lab [facility] 909 [place] [address] Case Samuel MD [address] [place] [address] 484, [address] [place] [address] 04/09/2025 3:30 PM TIRE MOLD TESTER Oncology Visit [facility] 909 [place] [address] Case Samuel MD [address] [place] [address] 484, RO[address] [place], [place] [address] documented as of this encounter Goals Goal Patient Goal Type Associated Problems Recent Progress Patient-Stated? Author Pain Management General On track( 025 2:37 PM CDT) Yes Juhi Bneson, RN Note: Goal Statement: I will establish [...] on filedocumented in this encounter Care Teams Navy Airspace Officer Relationship Specialty Start Date End Date Veronica Joseph MD [address] [place] [address] PCP - General Family Medicine 06/18/24 Mor Ramsey Medical Student 04/03/24 Case Samuel MD [address] [place] [address] 484, [address] [place] [address] Assigned Pediatric Specialist Provider 05/18/24 Juhi Benson, SOFIA Specialty Inserter Promotional Item Hematology & Oncology 05/29/24 Olinda Vora APRN STENOTYPIST 909 [place], [place] 004075 Assigned Cancer Care Provider 08/16/24 Stiven Stanley LP [address] [place] [address] Psychologist PSYCHOLOGIST CLINICAL 10/25/24 Star Galarza MD [facility] [address] [place], [place] [address] Home Infusion Following Provider Infectious Diseases 11/07/24 Aliyah Hudson RN Home Infusion Plant Guard 11/16/24 01/04/25 documented as of this encounter
--- OUTSIDE RECORDS SUMMARY | 2025-02-09 01:49 | XMS_ITS | Encounter Summary ---
Author Organization [place] Address [address] [place] [address]. [place] [address] Care Team Providers Care Disaster Or Damage Control Specialist Name Role Phone RoxyElvirac Unavailable Unavailable Case Samuel MD Unavailable [phone] Juhi Benson RN Unavailable Unavailable Veronica Joseph MD Primary Care Provider [phone] Olinda Vora APRN COUNTY HISTORIAN Unavailable [phone] Stiven Stanley Unavailable Star Galarza MD Unavailable [phone] Aliyah Hudson RN Unavailable Unavailable Encounter Details Date Type Department Care Team (Latest Contact Info) Description 01/02/2025 Travel Social History Tobacco Use Types Packs/Day [...] on file Legal Sex Female 8:25 AM FIREFIGHTER Gender Identity Not on file Sexual Orientation Not on file documented as of this encounter Plan of Treatment Upcoming Encounters Date Type Department Care Team (Late st Contact Info) Description 02/15/2025 10:30 AM CDT Lab [facility] [address] [phone] Olinda Vora APRN COUNTY HISTORIAN [address] [place] [address] [phone] 02/15/2025 11:00 AM CDT Oncology Visit [facility] [address] [phone] Olinda Vora APRN COUNTY HISTORIAN [address] [place] [address] [phone] 04/09/2025 3:00 PM FIREFIGHTER Lab [facility] [address] [address] Case Samuel MD [address] [place] [address] 484, [address] [place], [place] [phone] 04/09/2025 3:30 PM FIREFIGHTER Oncology Visit [facility] 909 [place] [address] Case Samuel MD 420 [facility] 484, [address] [place] [address] documented as of this encounter Goals Goal [...] on filedocumented in this encounter Care Teams Disaster Or Damage Control Specialist Relationship Specialty Start Date End Date Veronica Joseph MD [address] [place] [address] PCP - General Family Medicine 06/18/24 Mor Ramsey Medical Student 04/03/24 Case Samuel MD [address] [place] [address] 484, [address] [place] [address] Assigned Pediatric Specialist Provider 05/18/24 Juhi Benson, RN Specialty Accounting Clerk Hematology & Oncology 05/29/24 Olinda Vora APRN COUNTY HISTORIAN 909 [place] [address] Assigned Cancer Care Provider 08/16/24 Stiven Stanley LP 15[address] [place] [address] Psychologist PSYCHOLOGIST CLINICAL 10/25/24 Star Galarza MD [facility] 6600 [facility]. [address] [place] [address] Home Infusion Following Provider Infectious Diseases 11/07/24 Aliyah Hudson RN Home Infusion Calculation Clerk 11/16/24 01/04/25 documented as of this encounter
--- OUTSIDE RECORDS SUMMARY | 2025-02-09 01:49 | XMS_ITS | Encounter Summary ---
Author Organization [place] Address [address] [place] [address]. [place] [address] Care Team Providers Care Bark Peeler Name Role Phone RoxyElvirac Unavailable Unavailable Case Samuel MD Unavailable [phone] Juhi Benson RN Unavailable Unavailable Veronica Joseph MD Primary Care Provider [phone] Olinda Vora APRN FITNESS SALES ASSOCIATE Unavailable [phone] Stiven Stanley Unavailable Star Galarza MD Unavailable [phone] Aliyah Hudson RN Unavailable Unavailable Encounter Details Date Type Department Care Team (Latest Contact Info) Description 01/01/2025 Travel Social History Tobacco Use Types Packs/Day [...] on file Legal Sex Female 8:[address] Gender Identity Not on file Sexual Orientation Not on file documented as of this encounter Plan of Treatment Upcoming Encounters Date Type Department Care Team (Late st Contact Info) Description 02/15/2025 10:[address] [facility] Cancer [address] [address] Olinda Vora APRN FITNESS SALES ASSOCIATE [address] [place] [address] 02/15/2025 11:00 AM CDT Oncology Visit [facility] [address] [address] Olinda Vora APRN FITNESS SALES ASSOCIATE [address] [place] [address] [phone] 04/09/2025 3:[address] [facility] Cancer [address] [address] Case Samuel MD [address] [place] [address] 484, [address] [place], [place] [phone] 04/09/2025 3:[address] Oncology Visit [facility] 909 [place] [address] Case Samuel MD 420 [facility] 484, [address] [place] [address] documented as of this encounter Goals Goal [...] on filedocumented in this encounter Care Teams Bark Peeler Relationship Specialty Start Date End Date Veronica Joseph MD [address] [place] [address] PCP - General Family Medicine 06/18/24 Mor Ramsey Medical Student 04/03/24 Case Samuel MD [address] [place] [address] 484, [address] [place] [address] Assigned Pediatric Specialist Provider 05/18/24 Juhi Benson, RN Specialty Rotor Assembler Hematology & Oncology 05/29/24 Olinda Vora APRN FITNESS SALES ASSOCIATE 909 [place] [address] Assigned Cancer Care Provider 08/16/24 Stiven Stanley LP 1575 [place] [address] Psychologist PSYCHOLOGIST CLINICAL 10/25/24 Star Galarza MD [facility] 6600 [facility]. [address] [place] [address] Home Infusion Following Provider Infectious Diseases 11/07/24 Aliyah Hudson RN Home Infusion Battery Engineer 11/16/24 01/04/25 documented as of this encounter
--- OUTSIDE RECORDS SUMMARY | 2025-02-09 01:49 | XMS_ITS | Encounter Summary ---
Author Organization [facility] Address [address] [place] [address]. [place] [address] Care Team Providers Care Md Psychiatry Name Role Phone Elvira Ramseyc Unavailable Unavailable Case Samuel MD Unavailable [phone] Juhi Benson RN Unavailable Unavailable Veronica Joseph MD Primary Care Provider [phone] Olinda Vora APRN MAKING DEPARTMENT PREPARER Unavailable [phone] Stiven Stanley Unavailable Star Galarza MD Unavailable [phone] Aliyah Hudson RN Unavailable Unavailable Encounter Details Date Type Department Care Team (Late st Contact Info) Description 12/26/2024 [facility] Medical Advice [facility] [address] [place] [address] Monico Wilcox Social History Tobacco Use Types Packs/Day Years [...] an overnight long term, or couch-surfing.) Yes 11/09/2024 Are you worried [...] on file Legal Sex Female 8:25 AM CORRECTIONS OFFICER Gender Identity Not on file Sexual Orientation Not on file documented as of this encounter Plan of Treatment Upcoming Encounters Date Type Department Care Team (Late st Contact Info) Description 02/15/2025 10:30 AM CDT Lab [facility] [address] [phone] Olinda Vora APRN MAKING DEPARTMENT PREPARER [address] [place] [address] 02/15/2025 11:00 AM CDT Oncology Visit [facility] [address] [phone] Olinda Vora APRN MAKING DEPARTMENT PREPARER [address] [place] [address] 04/09/2025 3:00 PM CORRECTIONS OFFICER Lab [facility] [address] [phone] Case Samuel MD 420 [facility] 484, [address] [place] [address] 04/09/2025 3:30 PM CORRECTIONS OFFICER Oncology Visit [facility] [address] [place] [address] Case Samuel MD 420 [facility] 484, [address] [place] [address] documented as of this encounter Goals Goal [...] on filedocumented in this encounter Care Teams Md Psychiatry Relationship Specialty Start Date End Date Veronica Joseph MD [address] [place] [address] PCP - General Family Medicine 06/18/24 Mor Ramsey Medical Student 04/03/24 Case Samuel MD [address] [place] [address] 484, [address] [place] [address] Assigned Pediatric Specialist Provider 05/18/24 Juhi Benson, SOFIA Specialty Outsole Compressor Hematology & Oncology 05/29/24 Olinda Vora APRN MAKING DEPARTMENT PREPARER 9[address] [place] [address] Assigned Cancer Care Provider 08/16/24 Stiven Stanley LP [facility] [place] [address] Psychologist PSYCHOLOGIST CLINICAL 10/25/24 Star Galarza MD [facility] [address] [facility]. [address] [place], [place] [address] Home Infusion Following Provider Infectious Diseases 11/07/24 Aliyah Hudson RN Home Infusion District Manager 11/16/24 01/04/25 documented as of this encounter
--- OUTSIDE RECORDS SUMMARY | 2025-02-09 01:50 | XMS_ITS | Encounter Summary ---
Author Organization [facility] Address [address] [place] [address]. [place] [address] Care Team Providers Care Auricular Detoxification Specialist Name Role Phone RoxyElvira lynnc Unavailable Unavailable Case Samuel MD Unavailable [phone] Juhi Benson RN Unavailable Unavailable Veronica Joseph MD Primary Care Provider [phone] Olinda Vora APRN SWEEP PRESS OPERATOR Unavailable [phone] Stiven Stanley Unavailable Star Galarza MD Unavailable [phone] Aliyah Hudson RN Unavailable Unavailable Encounter Details Date Type Department Care Team (Late st Contact Info) Description 01/01/2025 Documentation Only [facility] [address] [place] [phone] Ronna Ruiz, RN Social History Tobacco Use Types Packs/Day [...] on file Legal Sex Female 8:25 AM SOFTWARE DEVELOPER MANAGER Gender Identity Not on file Sexual Orientation Not on file documented as of this encounter Progress Notes * Ronna Ruiz, RN - 01/01/2025 8:38 AM CDTSummary: [facility] Summary Discharge Date from [facility] Nursin01/01/2025 Will patient remain open to Pharmacy Only?: No Reason for Discharge: Goals Met and Therapy Completed Additional Comments: line pulled in hospital, admitted for sickle cell crisis Discharge Disposition: Therapy Discontinued/No further Alf If Transferred to Agency, Name of Agency: N/A Brief Summary of Admission to Home Infusion: Reason for Admission: MSSA bacteremia Treatment Provided: IV abx intermediate for teaching and assessment Significant Findings: n/a Discharge Instructions: follow up with provider documented in this encounter Plan of Treatment Upcoming Encounters Date Type Department Care Team (Late st Contact Info) Description 02/15/2025 10:30 AM CDT [address] [phone] Olinda Vora APRN SWEEP PRESS OPERATOR [address] [place] [address] 02/15/2025 11:00 AM CDT Oncology Visit [facility] [address] [phone] Olinda Vora APRN SWEEP PRESS OPERATOR [address] [place] [address] 04/09/2025 3:00 PM SOFTWARE DEVELOPER MANAGER Lab [facility] [address] [phone] Case Samuel MD [address] [place] [address], [address] [place] [address] 04/09/2025 3:30 PM SOFTWARE DEVELOPER MANAGER Oncology Visit [facility] [address] [phone] Case Samuel MD [address] [place], [place] [address], [address] [place] [address] documented as of this encounter Goals Goal [...] on filedocumented in this encounter Care Teams Auricular Detoxification Specialist Relationship Specialty Start Date End Date Veronica Joseph MD [address] [place] [address] PCP - General Family Medicine 06/18/24 Roxy Mor Medical Student 04/03/24 Case Samuel MD 420 [facility] 484, [address] [place] [address] Assigned Pediatric Specialist Provider 05/18/24 Juhi Benson, RN Specialty Harness Cutter Hematology & Oncology 05/29/24 Olinda Vora APRN SWEEP PRESS OPERATOR [address] [place] [address] 7927[address] Assigned Cancer Care Provider 08/16/24 Stiven Stanley LP [address] [place] [address] Psychologist PSYCHOLOGIST CLINICAL 10/25/24 Star Galarza MD [facility] [place] [address] Home Infusion Following Provider Infectious Diseases 11/07/24 Aliyah Hudson, SOFIA Home Infusion Hospitality Recruiter 11/16/24 01/04/25 documented as of this encounter
--- OUTSIDE RECORDS SUMMARY | 2025-02-09 01:50 | XMS_ITS | Encounter Summary ---
Author Organization [facility] Address [address] [place] [address]. [place] [address] Care Team Providers Care Fire Technician Name Role Phone RoxyElvirac Unavailable Unavailable Case Samuel MD Unavailable [phone] Juhi Benson RN Unavailable Unavailable Veronica Joseph MD Primary Care Provider [phone] Olinda Vora APRN PRIVACY COMPLIANCE MANAGER Unavailable [phone] Stiven Stanley Unavailable Star Galarza MD Unavailable [phone] Aliyah Hudson RN Unavailable Unavailable Encounter Details Date Type Department Care Team (Late st Contact Info) Description 12/28/2024 Telephone [facility] [address] [place] [phone] Eden Trevizo MA Social History Tobacco Use Types Packs/Day Years [...] on file Legal Sex Female 8:25 AM PROFESSOR/NURSE ANESTHETIST Gender Identity Not on file Sexual Orientation Not on file documented as of this encounter Miscellaneous Notes * Telephone Encounter - Eden Trevizo MA - 12/28/2024 3:35 PM CDT Market Research Assistant called pt and L/M to call [employer] and did not leave a detailed message. documented in this encounter Plan of Treatment Upcoming Encounters Date Type Department Care Team (Late st Contact Info) Description 02/15/2025 10:30 AM CDT Lab [facility] [address] [phone] Olinda Vora APRN [address] [address] 02/15/2025 11:00 AM CDT Oncology Visit [facility] [address] [phone] Olinda Vora APRN PRIVACY COMPLIANCE MANAGER [address] [place], [place] [address] 04/09/2025 3:00 PM PROFESSOR/NURSE ANESTHETIST Lab [facility] 909 [place] [phone] Case Samuel MD [address] [place] [address] 484, [address] [place] [address] 04/09/2025 3:30 PM PROFESSOR/NURSE ANESTHETIST Oncology Visit [address] [phone] Case Samuel MD [address] [place] [address] 484, [address] [place], [place] [address] documented as of this encounter Goals Goal [...] filedocumented in this encounter Care Teams Fire Technician Relationship Specialty Start Date End Date Veronica Joseph MD [address] [place] [address] PCP - General Family Medicine 06/18/24 Mor Ramsey Medical Student 04/03/24 Case Samuel MD 420 [facility] 484, [address] [place] [address] Assigned Pediatric Specialist Provider 05/18/24 Juhi Benson, SOFIA Specialty Nutrition Representative Hematology & Oncology 05/29/24 Olinda Vora APRN PRIVACY COMPLIANCE MANAGER [address] [place] [address] Assigned Cancer Care Provider 08/16/24 Stiven Stanley LP 1575 [facility] [place] [place] [address] Psychologist PSYCHOLOGIST CLINICAL 10/25/[address] [facility]0 [facility] [address] [place], [place] [address] Home Infusion Following Provider Infectious Diseases 11/07/24 Aliyah Hudson RN Home Infusion Chair Post Machine Operator 11/16/24 01/04/25 documented as of this encounter
--- OUTSIDE RECORDS SUMMARY | 2025-02-09 01:50 | XMS_ITS | Encounter Summary ---
Author Organization [facility] Address [address] [place] [address]. [place] [address] Care Team Providers Care Learning Program Manager Name Role Phone Roxy Mor Unavailable Unavailable Case Samuel MD Unavailable [phone] Juhi Benson RN Unavailable Unavailable Veronica Joseph MD Primary Care Provider [phone] Olinda Vora APRN ELECTRICAL CONTINUITY INSPECTOR Unavailable [phone] Stiven Stanley LP Unavailable Star Galarza MD Unavailable [phone] Encounter Details Date Type Department Care Team (Latest Contact Info) Description 01/26/2025 Travel Social History Tobacco Use Types Packs/Day [...] file Legal Sex Female 8:25 AM STOCK PLAN ADMINISTRATOR Gender Identity Not on file Sexual Orientation Not on file documented as of this encounter Plan of Treatment Upcoming Encounters Date Type Department Care Team (Late st Contact Info) Description 02/15/2025 10:30 AM CDT Lab [facility] [address] [phone] Olinda Vora APRN ELECTRICAL CONTINUITY INSPECTOR [address] [place] [address] 02/15/2025 11:00 AM CDT Oncology Visit [facility] [address] [phone] Olinda Vora APRN ELECTRICAL CONTINUITY INSPECTOR [address] [place] [address] 958015 04/09/2025 3:00 PM STOCK PLAN ADMINISTRATOR Lab [facility] [address] [phone] Case Samuel MD [address] [place] [address] 484, [address] [place], [place] [address] 04/09/2025 3:30 PM STOCK PLAN ADMINISTRATOR Oncology Visit [facility] 909 [place] [address] Case Samuel MD 420 [facility] 484, [address] [place], [place] [address] documented as of this encounter Goals Goal [...] on filedocumented in this encounter Care Teams Learning Program Manager Relationship Specialty Start Date End Date Veronica Joseph MD [address] [place] [address] PCP - General Family Medicine 06/18/24 Mor Ramsey Medical Student 04/03/24 Case Samuel MD [address] [place] [address] 484, [address] [place], [place] [address] Assigned Pediatric Specialist Provider 05/18/24 Juhi Benson, RN Specialty Beer Merchant Hematology & Oncology 05/29/24 Olinda Vora APRN ELECTRICAL CONTINUITY INSPECTOR [address] [place] [address] Assigned Cancer Care Provider 08/16/24 Stiven Stanley LP 1575 [facility] [place] [address] Psychologist PSYCHOLOGIST CLINICAL 10/25/24 Star Galarza MD [facility] [address] [facility] . [address] [place] [address] Home Infusion Following Provider Infectious Diseases 11/07/24 documented as of this encounter
--- OUTSIDE RECORDS SUMMARY | 2025-02-09 01:50 | XMS_ITS | Encounter Summary ---
Author Organization [facility] Address [address] [place] [address]. [place] [address] Care Team Providers Care Feeder/Folder Name Role Phone Roxy Mor Unavailable Unavailable Case Samuel MD Unavailable [phone] Juhi Benson RN Unavailable Unavailable Veronica Joseph MD Primary Care Provider [phone] Olinda Vora APRN WATCH DIAL STONER Unavailable [phone] Stiven Stanley LP Unavailable Star Galarza MD Unavailable [phone] Encounter Details Date Type Department Care Team (Latest Contact Info) Description 01/25/2025 Travel Social History Tobacco Use Types Packs/Day [...] an overnight group home, or couch-surfing.) Yes 11/09/2024 Are you [...] on file Legal Sex Female 8:25 AM RESEARCH NURSE Gender Identity Not on file Sexual Orientation Not on file documented as of this encounter Plan of Treatment Upcoming Encounters Date Type Department Care Team (Late st Contact Info) Description 02/15/2025 10:30 AM CDT Lab [facility] [address] [phone] Olinda Vora APRN WATCH DIAL STONER [address] [place] [address] 6[address] 02/15/2025 11:00 AM CDT Oncology Visit [facility] [address] [phone] Olinda Vora APRN WATCH DIAL STONER [address] [place] [address] 04/09/2025 3:00 PM RESEARCH NURSE Lab [facility] [address] [address] Case Samuel MD [address] [place] [address] 484, [address] [place], [place] [phone] 04/09/2025 3:30 PM RESEARCH NURSE Oncology Visit [facility] 909 [place] [address] Case Samuel MD 420 [facility] 484, [address] [place], [place] [address] documented as of this encounter Goals Goal [...] on filedocumented in this encounter Care Teams Feeder/Folder Relationship Specialty Start Date End Date Veronica Joseph MD [address] [place] [address] PCP - General Family Medicine 06/18/24 Mor Ramsey Medical Student 04/03/24 Case Samuel MD [address] [place] [address] 484, [address] [place], [place] [address] Assigned Pediatric Specialist Provider 05/18/24 Juhi Benson, RN Specialty Workday Senior Associate Hematology & Oncology 05/29/24 Olinda Vora APRN WATCH DIAL STONER [address] [place] [address] Assigned Cancer Care Provider 08/16/24 Stiven Stanley LP 1575 [facility] [place] [address] Psychologist PSYCHOLOGIST CLINICAL 10/25/24 Star Galarza MD [facility] [address] [facility] . [address] [place] [address] Home Infusion Following Provider Infectious Diseases 11/07/24 documented as of this encounter
--- OUTSIDE RECORDS SUMMARY | 2025-02-09 01:50 | XMS_ITS | Encounter Summary ---
Author Organization [facility] Address [address] [place] [address]. [place] [address] Care Team Providers Care Button Sewer Hand Name Role Phone Roxy Mor Unavailable Unavailable Case Samuel MD Unavailable [phone] Juhi Benson RN Unavailable Unavailable Veronica Joseph MD Primary Care Provider [phone] Olinda Vora APRN COMMUNITY HEALTH NAVIGATOR Unavailable [phone] Stiven Stanley LP Unavailable Star Galarza MD Unavailable [phone] Encounter Details Date Type Department Care Team (Latest Contact Info) Description 01/24/2025 Travel Social History Tobacco Use Types Packs/Day [...] an overnight care home, or couch-surfing.) Yes 11/09/2024 Are you [...] file Legal Sex Female 8:25 AM AUTOMATIC OPERATOR Gender Identity Not on file Sexual Orientation Not on file documented as of this encounter Plan of Treatment Upcoming Encounters Date Type Department Care Team (Late st Contact Info) Description 02/15/2025 10:30 AM CDT Lab [facility] [address] [phone] Olinda Vora APRN COMMUNITY HEALTH NAVIGATOR [address] [place] [address] 840445 02/15/2025 11:00 AM CDT Oncology Visit [facility] [address] [phone] Olinda Vora APRN COMMUNITY HEALTH NAVIGATOR [address] [place] [address] 04/09/2025 3:00 PM AUTOMATIC OPERATOR Lab [facility] [address] [address] Case Samuel MD [address] [place] [address] 484, [address] [place], [place] [address] 04/09/2025 3:30 PM AUTOMATIC OPERATOR Oncology Visit [facility] 909 [place] [address] Case Samuel MD 420 [facility] 484, [address] [place], [place] [address] documented as of this encounter Goals Goal [...] on filedocumented in this encounter Care Teams Button Sewer Hand Relationship Specialty Start Date End Date Veronica Joseph MD [address] [place] [address] PCP - General Family Medicine 06/18/24 Mor Ramsey Medical Student 04/03/24 Case Samuel MD [address] [place] [address] 484, [address] [place], [place] [address] Assigned Pediatric Specialist Provider 05/18/24 Juhi Benson, RN Specialty Application Development Intern Hematology & Oncology 05/29/24 Olinda Vora APRN COMMUNITY HEALTH NAVIGATOR [address] [place] [address] Assigned Cancer Care Provider 08/16/24 Stiven Stanley LP [address] [facility] [place] [address] Psychologist PSYCHOLOGIST CLINICAL 10/25/24 Star Galarza MD [facility] 66[address] [facility] . [address] [place] [address] Home Infusion Following Provider Infectious Diseases 11/07/24 documented as of this encounter
--- OUTSIDE RECORDS SUMMARY | 2025-02-09 01:50 | XMS_ITS | Encounter Summary ---
Author Organization [facility] Address [address] [place] [address]. [place] [address] Care Team Providers Care Director Check Name Role Phone Elvira Ramseyc Unavailable Unavailable Case Samuel MD Unavailable [phone] Juhi Benson RN Unavailable Unavailable Veronica Joseph MD Primary Care Provider [phone] Olinda Vora APRN REHABILITATION SPECIALIST Unavailable [phone] Stiven Stanley Unavailable Star Galarza MD Unavailable [phone] Aliyah Hudson RN Unavailable Unavailable Juhi Smith RN Unavailable UnavailEnrico Cruz RN Unavailable UnavailNorth Alejandro RN Unavailable Unavailable Reason for Visit * Reason Onset Date Comments Consult 12/04/2024 Encounter Details Date Type Department Care Team (Late st Contact Info) Description 12/04/2024 Telephone [facility] [address] [phone] Alex Galvez MD [address] [place] [address] Consult Social History Tobacco Use Types Packs/Day Years [...] on file Legal Sex Female 8:25 AM MARKETING CONTENT SPECIALIST Gender Identity Not on file Sexual Orientation Not on file documented as of this encounter Miscellaneous Notes * Telephone Encounter - Olga Al RN - 12/04/2024 1:03 PM CDT Routed message to Dr Galvez and Opat team. Dr Galvez to call Dr Sifuentes, and pt will be opat if pt agrees to treatment. Olga Al RN * Telephone Encounter - Gloria Montano CMA - 12/04/2024 9:43 AM CDT [facility] Call Center Phone Message May a detailed message be left on voicemail: yes Reason for Call: Call received from SOFIA Boateng on behalf of Dr. Sifuentes with [facility]:they are aware that pt was seen in the ER over the weekend and a consult was done with Dr. Galvez. However, after that consult, pt then left the hospital AMA. Pt was previously getting IV antibiotics through [facility] and they are trying to get that restarted, however, Dr. Sifuentes would like to speak with Dr. Galvez first prior to getting her IV antibiotics re-instated. Dr. Sifuentes would like a call back from Dr. Galvez to her personal cell as soon as possible at (ph) [phone]. Action Taken: Other: Infectious Disease Travel Screening: Not Applicable documented in this encounter Plan of Treatment Upcoming Encounters Date Type Department Care Team (Late st Contact Info) Description 02/15/2025 10:30 AM CDT Lab [facility] [address] [phone] Olinda Vora APRN REHABILITATION SPECIALIST [address] [place] [address] 719685 02/15/2025 11:00 AM CDT Oncology Visit [facility] [address] [phone] Olinda Vora APRN REHABILITATION SPECIALIST [address] [place] [address] 04/09/2025 3:00 PM MARKETING CONTENT SPECIALIST Lab [facility] [address] [phone] Case Samuel MD [address] [place] [address] 484, [address] [place], [place] [address] 04/09/2025 3:30 PM MARKETING CONTENT SPECIALIST Oncology Visit [facility] 909 [place] [address] Case Samuel MD 420 [facility] 484, [address] [place], [place] [address] documented as of this encounter Goals Goal [...] filedocumented in this encounter Care Teams Director Check Relationship Specialty Start Date End Date Veronica Joseph MD [address] [place] [address] PCP - General Family Medicine 06/18/24 Mor Ramsey Medical Student 04/03/24 Case Samuel MD [address] [place] [address] 484, [address] [place] [address] Assigned Pediatric Specialist Provider 05/18/24 Juhi Benson, RN Specialty Tubing Tester Hematology & Oncology 05/29/24 Olinda Vora APRN REHABILITATION SPECIALIST [address] [place] [address] 098155 Assigned Cancer Care Provider 08/16/24 Stiven Stanley LP [address] [place] [address] Psychologist PSYCHOLOGIST CLINICAL 10/25/24 Star Galarza MD [facility] [address] [facility] [address] [place] [address] Home Infusion Following Provider Infectious Diseases 11/07/24 Aliyah Hudson, SOFIA Home Infusion Sausage Grinder 11/16/24 01/04/25 Juhi Smith, RN [facility] Resource Team 12/03/24 12/05/24 Enrico Mckoy RN [facility] Resource Team 12/05/24 12/06/24 [place], RN [facility] Resource Team 12/10/24 12/20/24 documented as of this encounter
--- OUTSIDE RECORDS SUMMARY | 2025-02-09 01:50 | XMS_ITS | Encounter Summary ---
Author Organization [facility] Address [address] [place] [address]. [place] [address] Care Team Providers Care Rn Homecare Name Role Phone RoxyElvirac Unavailable Unavailable Case Samuel MD Unavailable [phone] Juhi Benson RN Unavailable Unavailable Veronica Joseph MD Primary Care Provider [phone] Olinda Vora APRN SPOOL SALVAGER Unavailable [phone] Stiven Stanley Unavailable Star Galarza MD Unavailable [phone] Aliyah Hudson RN Unavailable Unavailable Encounter Details Date Type Department Care Team (Latest Contact Info) Description 12/29/2024 Travel Social History Tobacco Use Types Packs/Day [...] on file Legal Sex Female 8:25 AM INFORMATION AND REFERRAL DIRECTOR Gender Identity Not on file Sexual Orientation Not on file documented as of this encounter Plan of Treatment Upcoming Encounters Date Type Department Care Team (Late st Contact Info) Description 02/15/2025 10:30 AM CDT Lab [facility] Cancer [address] [address] Olinda Vora APRN SPOOL SALVAGER [address] [place] [address] 217125 02/15/2025 11:00 AM CDT Oncology Visit [facility] Cancer [address] [address] Olinda Vora APRN SPOOL SALVAGER [address] [place] [address]335 04/09/2025 3:00 PM INFORMATION AND REFERRAL DIRECTOR Lab [facility] Cancer [address] [address] Case Samuel MD [address] [place] [address] 484, [address] [place], [place] [phone] 04/09/2025 3:30 PM INFORMATION AND REFERRAL DIRECTOR Oncology Visit [facility] 9[address] [place] [address] Case Samuel MD [address] [facility] 484, [address] [place] [address] documented as of this encounter Goals Goal [...] filedocumented in this encounter Care Teams Rn Homecare Relationship Specialty Start Date End Date Veronica Joseph MD [address] [place] [address] PCP - General Family Medicine 06/18/24 Mor Ramsey Medical Student 04/03/24 Case Samuel MD [address] [place] [address] 484, [address] [place] [address] Assigned Pediatric Specialist Provider 05/18/24 Juhi Benson, RN Specialty Fws Faculty Assistant Hematology & Oncology 05/29/24 Olinda Vora APRN SPOOL SALVAGER 909 [place] [address] Assigned Cancer Care Provider 08/16/24 Stiven Stanley LP [address] [place] [address] Psychologist PSYCHOLOGIST CLINICAL 10/25/24 Star Galarza MD [facility] [address] [facility]. [address] [place] [address] Home Infusion Following Provider Infectious Diseases 11/07/24 Aliyah Hudson RN Home Infusion Wet End Tester 11/16/24 01/04/25 documented as of this encounter
--- OUTSIDE RECORDS SUMMARY | 2025-02-09 01:50 | XMS_ITS | Encounter Summary ---
Author Organization [place] Address [address] [place] [address]. [place] [address] Care Team Providers Care Delivery Man Name Role Phone RoxyElvirac Unavailable Unavailable Case Samuel MD Unavailable [phone] Juhi Benson RN Unavailable Unavailable Veronica Joseph MD Primary Care Provider [phone] Olinda Vora APRN TRANSPORTATION COORDINATOR Unavailable [phone] Stiven Stanley Unavailable Star Galarza MD Unavailable [phone] Aliyah Hudson RN Unavailable Unavailable Reason for Visit * Reason Onset Date Comments OPAT Therapy Plan 01/01/2025 Episode resolv ed Encounter Details Date Type Department Care Team (Late st Contact Info) Description 01/01/2025 Telephone [facility] [address] [address] Karine Milan, SOFIA OPAT Therapy Plan (Episode resolved) Social History Tobacco Use Types Packs/Day Years [...] on file Legal Sex Female 8:25 AM CHERRY GROWER Gender Identity Not on file Sexual Orientation Not on file documented as of this encounter Miscellaneous Notes * Telephone Encounter - Karine Milan RN - 01/01/2025 9:15 AM CDT OPAT episode resolved, PICC pulled 12/31. DEVON BurdickN, RN RN [employer] [facility] documented in this encounter Plan of Treatment Upcoming Encounters Date Type Department Care Team (Late st Contact Info) Description 02/15/2025 10:30 AM CDT [facility] [address] [place] [address] Olinda Vora APRN TRANSPORTATION COORDINATOR 9 [place] [address] 02/15/2025 11:00 AM CDT Oncology Visit [facility] Cancer [address] [address] Olinda Vora APRN TRANSPORTATION COORDINATOR [address] [place] [address]925 04/09/2025 3:00 PM CHERRY GROWER Lab [facility] Cancer [address] [phone] Case Samuel MD [address] [place] [address] 484, [address] [place], [place] [address] 04/09/2025 3:30 PM CHERRY GROWER Oncology Visit [facility] Cancer [address] [address] Case Samuel MD [address] [place] [address] 484, [address] [place], [place] [address] documented as of this encounter Goals Goal [...] on filedocumented in this encounter Care Teams Delivery Man Relationship Specialty Start Date End Date Veronica Joseph MD [address] [place] [address] PCP - General Family Medicine 06/18/24 Elvira Ramseyc Medical Student 04/03/24 Case Samuel MD 420 [facility] 484, [address] [place], [place] [address] Assigned Pediatric Specialist Provider 05/18/24 Juhi Benson, SOFIA Specialty Printed Circuit Boards Beveler Hematology & Oncology 05/29/24 Olinda Vora APRN TRANSPORTATION COORDINATOR [address] [place] [address]345 Assigned Cancer Care Provider 08/16/24 Stiven Stanley LP [address] [place] [address] Psychologist PSYCHOLOGIST CLINICAL 10/25/24 Star Galarza MD [facility] [address] [place] [address] Home Infusion Following Provider Infectious Diseases 11/07/24 Aliyah Hudson, SOFIA Home Infusion Teenage Babysitter 11/16/24 01/04/25 documented as of this encounter
--- OUTSIDE RECORDS SUMMARY | 2025-02-09 01:50 | XMS_ITS | Encounter Summary ---
Author Organization [place] Address [address] [place] [address]. [place] [address] Care Team Providers Care Car Repairman Name Role Phone Elvira Ramseyc Unavailable Unavailable Case Samuel MD Unavailable [phone] Juhi Benson RN Unavailable Unavailable Veronica Joseph MD Primary Care Provider [phone] Olinda Vora APRN JANITORIAL SUPERVISOR Unavailable [phone] Stiven Stanley LP Unavailable Star Galarza MD Unavailable [phone] Aliyah Hudson RN Unavailable Unavailable Juhi Smith RN Unavailable UnavailEnrico Cruz RN Unavailable UnavailNorth Alejandro RN Unavailable Unavailable Encounter Details Date Type Department Care Team (Late st Contact Info) Description 12/04/2024 Results Follow-Up [facility] Services - General Medicine & Pediatrics [address] [place] [address] Rodo Garcia PA-C [address] [place] [address] Social History Tobacco Use Types Packs/Day [...] on file Legal Sex Female 8:25 AM SINGING TEACHER Gender Identity Not on file Sexual Orientation Not on file documented as of this encounter Plan of Treatment Upcoming Encounters Date Type Department Care Team (Late st Contact Info) Description 02/15/2025 10:30 AM CDT Lab [facility] [address] [address] Olinda Vora APRN JANITORIAL SUPERVISOR [address] [place] [address] [phone] 02/15/2025 11:00 AM CDT Oncology Visit [facility] [address] [address] Olinda Vora APRN JANITORIAL SUPERVISOR [address] [place] [address] 04/09/2025 3:00 PM SINGING TEACHER Lab [facility] Cancer [address] [phone] Case Samuel MD [address] [place] [address] 484, [address] [place], [place] [address] 04/09/2025 3:30 PM SINGING TEACHER Oncology Visit [address] [phone] Case Samuel MD [address] [place] [address] 484, [address] [place] [address] documented as of this encounter Goals Goal [...] filedocumented in this encounter Care Teams Car Repairman Relationship Specialty Start Date End Date Veronica Joseph MD [address] [place] [address] PCP - General Family Medicine 06/18/24 Roxy, Mor Medical Student 04/03/24 Case Samuel MD 420 [facility] 484, [address] [place] [address] Assigned Pediatric Specialist Provider 05/18/24 Juhi Benson, RN Specialty Draw Off Worker Hematology & Oncology 05/29/24 Olinda Vora APRN JANITORIAL SUPERVISOR 909 [place] [address] Assigned Cancer Care Provider 08/16/24 Stiven Stanley LP [address] [place] [address] Psychologist PSYCHOLOGIST CLINICAL 10/25/24 Star Galarza MD [facility] [address] [facility]. [address] [place] [address] Home Infusion Following Provider Infectious Diseases 11/07/24 Aliyah Hudson, SOFIA Home Infusion Advanced Clinical Specialist 11/16/24 01/04/25 Juhi [place], SOFIA [facility] Resource Team 12/03/24 12/05/24 Enrico Mckoy RN [facility] Resource Team 12/05/24 12/06/24 [place], SOFIA [facility] Resource Team 12/10/24 12/20/24 documented as of this encounter
--- OUTSIDE RECORDS SUMMARY | 2025-02-09 01:51 | XMS_ITS | Encounter Summary ---
Author Organization [facility] Address [address] [place] [address]. [place] [address] Care Team Providers Care Level Vial Grinder Name Role Phone RoxyElvirac Unavailable Unavailable Case Samuel MD Unavailable [phone] Juhi Benson RN Unavailable Unavailable Veronica Joseph MD Primary Care Provider [phone] Oilnda Vora APRN ALTERATIONS EXPERT Unavailable [phone] Stiven Stanley LP Unavailable Star Galarza MD Unavailable [phone] Reason for Visit * Reason Comments Medication Refill Encounter Details Date Type Department Care Team (Late st Contact Info) Description 01/29/[address] [facility] [address] [place] [address] Tatiana Cohen, ALTERATIONS EXPERT [address] [facility] [address] [place] [address] Medication Refill Social History Tobacco Use Types Packs/Day Years [...] on file Legal Sex Female 8:25 AM ELECTRO MECHANICAL ASSEMBLER Gender Identity Not on file Sexual Orientation Not on file documented as of this encounter Miscellaneous Notes * Telephone Encounter - Roberta Summers RN - 02/01/2025 2:19 PM CDT Duplicate documented in this encounter Plan of Treatment Upcoming Encounters Date Type Department Care Team (Late st Contact Info) Description 02/15/2025 10:30 AM CDT [facility] [address] [place] [address] Olinda Vora APRN [facility] 909 [place] [address] 02/15/2025 11:00 AM CDT Oncology Visit [facility] Cancer [address] [phone] Olinda Vora APRN ALTERATIONS EXPERT [address] [place] [address] 04/09/2025 3:00 PM ELECTRO MECHANICAL ASSEMBLER Lab [facility] Cancer [address] [phone] Case Samuel MD [address] [place] [address] 484, [address] [place], [place] [address] 04/09/2025 3:30 PM ELECTRO MECHANICAL ASSEMBLER Oncology Visit [facility] Cancer [address] [phone] Case Samuel MD [address] [place] [address] 484, [address] [place], [place] [address] documented as of this encounter Goals Goal [...] crisis documented in this encounter Care Teams Level Vial Grinder Relationship Specialty Start Date End Date Veronica Joseph MD [address] [place] [address] PCP - General Family Medicine 06/18/24 Mor Ramsey Medical Student 04/03/24 Case Samuel MD 420 [facility] 484, [address] [place], [place] [address] Assigned Pediatric Specialist Provider 05/18/24 Juhi Benson, RN Specialty Horseradish Maker Hematology & Oncology 05/29/24 Olinda Vora APRN ALTERATIONS EXPERT 9[address] [place], [place] 8[address]45 Assigned Cancer Care Provider 08/16/24 Stiven Stanley LP [address] [place] [address] Psychologist PSYCHOLOGIST CLINICAL 10/25/24 Star Galarza MD [facility] [place] [address] Home Infusion Following Provider Infectious Diseases 11/07/24 documented as of this encounter
--- OUTSIDE RECORDS SUMMARY | 2025-02-09 01:51 | XMS_ITS | Encounter Summary ---
Author Organization [facility] Address [address] [place] [address]. [place] [address] Care Team Providers Care Block Cleaner Name Role Phone Roxy Mor Unavailable Unavailable Case Samuel MD Unavailable [phone] Juhi Benson RN Unavailable Unavailable Veronica Joseph MD Primary Care Provider [phone] Olinda Vora APRN HARDWARE INSTALLER Unavailable [phone] Stiven Stanley LP Unavailable Star Galarza MD Unavailable [phone] Encounter Details Date Type Department Care Team (Latest Contact Info) Description 02/01/2025 Travel Social History Tobacco Use Types Packs/Day [...] in an overnight correction, or couch-surfing.) Yes 11/09/2024 Are you worried [...] on file Legal Sex Female 8:25 AM GASOLINE TRUCK CRANE OPERATOR Gender Identity Not on file Sexual Orientation Not on file documented as of this encounter Plan of Treatment Upcoming Encounters Date Type Department Care Team (Late st Contact Info) Description 02/15/2025 10:30 AM CDT Lab [facility] Cancer [address] [address] Olinda Vora APRN HARDWARE INSTALLER [address] [place] [phone] 02/15/2025 11:00 AM CDT Oncology Visit [facility] Cancer [address] [phone] Olinda Vora APRN HARDWARE INSTALLER [address] [place] [address] 068925 04/09/2025 3:00 PM GASOLINE TRUCK CRANE OPERATOR Lab [facility] Cancer [address] [address] Case Samuel MD [address] [place] [address] 484, [address] [place], [place] [address] 04/09/2025 3:30 PM GASOLINE TRUCK CRANE OPERATOR Oncology Visit [facility] Clinic [address] [place] [address] Case Samuel MD 420 [facility] 484, [address] [place], [place] [address] documented as of this encounter Goals Goal [...] on filedocumented in this encounter Care Teams Block Cleaner Relationship Specialty Start Date End Date Veronica Joseph MD [address] [place] [address] PCP - General Family Medicine 06/18/24 Mor Ramsey Medical Student 04/03/24 Case Samuel MD [address] [place] [address] 484, [address] [place], [place] [address] Assigned Pediatric Specialist Provider 05/18/24 Juhi Benson, RN Specialty Director Clinical Research Hematology & Oncology 05/29/24 Olinda Vora APRN HARDWARE INSTALLER [address] [place] [address] Assigned Cancer Care Provider 08/16/24 Stiven Stanley LP [address] [facility] [place] [address] Psychologist PSYCHOLOGIST CLINICAL 10/25/24 Star Galarza MD [facility] [address] [facility] [address] [place] [address] Home Infusion Following Provider Infectious Diseases 11/07/24 documented as of this encounter
--- OUTSIDE RECORDS SUMMARY | 2025-02-09 01:51 | XMS_ITS | Encounter Summary ---
Author Organization [facility] Address [address] [place] [address]. [place] [address] Care Team Providers Care Electrical Tech/Project Manager Name Role Phone Elvira Ramseyc Unavailable Unavailable Case Samuel MD Unavailable [phone] Juhi Benson RN Unavailable Unavailable Veronica Joseph MD Primary Care Provider [phone] Olinda Vora APRN MARINATOR Unavailable [phone] Stiven Stanley LP Unavailable Star Galarza MD Unavailable [phone] Aliyah Hudson RN Unavailable Unavailable Juhi Smith RN Unavailable UnavailEnrico Cruz RN Unavailable UnavailNorth Alejandro RN Unavailable Unavailable Encounter Details Date Type Department Care Team (Late st Contact Info) Description 12/05/2024 Home Infusion [facility] [address] [place] [phone] Enrico Mckoy, RN Social History Tobacco Use Types Packs/Day [...] in an overnight snf, or couch-surfing.) Yes 11/09/2024 Are you worried [...] file Legal Sex Female 8:25 AM ASSOCIATE COUNSEL Gender Identity Not on file Sexual Orientation Not on file documented as of this encounter Progress Notes * Enrico Mckoy RN - 12/05/2024 5:11 PM CDT [facility] Start of Care/Resumption of Care Note [facility] DX: MSSA bacteremia Therapy: Anti-Infective Next Dose Due: 12/06/24 Delivery plan: No delivery needed at this time In-basket sent to [facility] Scheduling, requesting visit on 12/06/24 Per [facility] care plan, labs are due on every wednesday Nursing plan: [facility] Nursing. Teaching Plan: Liaison Teach Done?: NA Other Info: Patient made active for SE[facility]. SNV as already scheduled. No supplies needed at this time. Enrico Mckoy RN 12/05/24 documented in this encounter Plan of Treatment Upcoming Encounters Date Type Department Care Team (Late st Contact Info) Description 02/15/2025 10:30 AM CDT Lab [facility] Cancer [address] [phone] Olinad Vora APRN MARINATOR [address] [place] [address] 02/15/2025 11:00 AM CDT Oncology Visit [facility] Cancer [address] [phone] Olinda Vora APRN MARINATOR [address] [place] [address] 04/09/2025 3:00 PM ASSOCIATE COUNSEL Lab [facility] Cancer [address] [phone] Case Samuel MD [address] [place] [address] 484, [address] [place], [place] [address] 04/09/2025 3:30 PM ASSOCIATE COUNSEL Oncology Visit [address] [phone] Case Samuel MD [address] [place] [address] 484, [address] [place], [place] [address] documented as of this encounter Goals Goal [...] filedocumented in this encounter Care Teams Electrical Tech/Project Manager Relationship Specialty Start Date End Date Veronica Joseph MD [address] [place] [address] PCP - General Family Medicine 06/18/24 Elvira Ramseyc Medical Student 04/03/24 Case Samuel MD 420 [facility] 484, [address] [place], [place] [address] Assigned Pediatric Specialist Provider 05/18/24 Juhi Benson, SOFIA Specialty Pants Busheler Hematology & Oncology 05/29/24 Olinda Vora APRN MARINATOR 909 [place], [place] [address] Assigned Cancer Care Provider 08/16/24 Stiven Stanley LP [address] [place] [address] Psychologist PSYCHOLOGIST CLINICAL 10/25/24 Star Galarza MD [facility] [place], [place] [address] Home Infusion Following Provider Infectious Diseases 11/07/24 Aliyah Hudson, SOFIA Home Infusion Lead Php Developer 11/16/24 01/04/25 Juhi Smith, SOFIA I Resource Team 12/03/24 12/05/24 Enrico Mckoy RN I Resource Team 12/05/24 12/06/24 [place], RN [facility] Resource Team 12/10/24 12/20/24 documented as of this encounter
--- OUTSIDE RECORDS SUMMARY | 2025-02-09 01:51 | XMS_ITS | Clinical Summary ---
Author Organization [facility] Address [address] [place] [address] Phone Care Team Providers Care Commissioning Agent Name Role Phone Unavailable Primary Care Provider Unavailabl e Encounters Date Type Department Care Team Description 12/12/2024 Telephone [facility] [address] [place] [address] Cynthia Romero RN 12/04/2024 [employer] [address] [place] [address] Cynthia Romero, SOFIA from Last 3 Months Social History Tobacco Use Types Packs/Day Years Used Date Smoking Tobacco: Never Assessed Comments Unknown Sex and Gender Information Value Date Recorded Sex Assigned at Not on file Legal Sex Female 9:13 AM MDT Gender Identity Not on file Sexual Orientation Not on file Plan of Treatment Health Maintenance Due Date Last Done Comments Pneumococcal PPSV23 Highest Risk Adult (1 of 3 - PCV13 ) 2013 Influenza Vaccine (#1) 2024 Insurance [place] [id number] PM INTERFACED INSURANCE [place] [employer] [employer] [id number]
--- OUTSIDE RECORDS SUMMARY | 2025-02-09 01:51 | XMS_ITS | Encounter Summary ---
Author Organization [facility] Address [address] [place] [address]. [place] [address] Care Team Providers Care Corrugator Operator Name Role Phone Roxy Mor Unavailable Unavailable Case Samuel MD Unavailable [phone] Juhi Benson RN Unavailable Unavailable Veronica Joseph MD Primary Care Provider [phone] Olinda Vora APRN RADIATION OFFICER Unavailable [phone] Stiven Stanley LP Unavailable Star Galarza MD Unavailable [phone] Encounter Details Date Type Department Care Team (Latest Contact Info) Description 01/27/2025 Travel Social History Tobacco Use Types Packs/Day [...] on file Legal Sex Female 8:25 AM KILN PLACER Gender Identity Not on file Sexual Orientation Not on file documented as of this encounter Plan of Treatment Upcoming Encounters Date Type Department Care Team (Late st Contact Info) Description 02/15/2025 10:30 AM CDT Lab [facility] Cancer [address] [phone] Olinda Vora APRN RADIATION OFFICER [address] [place] [address] [phone] 02/15/2025 11:00 AM CDT Oncology Visit [facility] Cancer [address] [phone] Olinda Vora APRN RADIATION OFFICER [address] [place] [address] [phone] 04/09/2025 3:00 PM KILN PLACER Lab [facility] Cancer [address] [address] Case Samuel MD [address] [place] [address] 484, [address] [place], [place] [phone] 04/09/2025 3:30 PM KILN PLACER Oncology Visit [facility] Cancer Clinic [address] [place] [address] Case Samuel MD 420 [facility] 484, [address] [place], [place] [address] documented as of this encounter Goals Goal [...] on filedocumented in this encounter Care Teams Corrugator Operator Relationship Specialty Start Date End Date Veronica Joseph MD [address] [place] [address] PCP - General Family Medicine 06/18/24 Mor Ramsey Medical Student 04/03/24 Case Samuel MD [address] [place] [address] 484, [address] [place], [place] [address] Assigned Pediatric Specialist Provider 05/18/24 Juhi Benson, RN Specialty Color Drum Worker Hematology & Oncology 05/29/24 Olinda Vora APRN RADIATION OFFICER [address] [place] [address] Assigned Cancer Care Provider 08/16/24 Stiven Stanley LP [address] [facility] [place] [address] Psychologist PSYCHOLOGIST CLINICAL 10/25/24 Star Galarza MD [facility] [address] [facility] [address] [place] [address] Home Infusion Following Provider Infectious Diseases 11/07/24 documented as of this encounter
--- OUTSIDE RECORDS SUMMARY | 2025-02-09 01:51 | XMS_ITS | Encounter Summary ---
Author Organization [facility] Address [address] [place] [address]. [place] [address] Care Team Providers Care Halver Machine Operator Name Role Phone RoxyElvirac Unavailable Unavailable Case Samuel MD Unavailable [phone] Juhi Benson RN Unavailable Unavailable Veronica Josehp MD Primary Care Provider [phone] Olinda Vora APRN HOMEWORKER Unavailable [phone] Stiven Stanley LP Unavailable Star Galarza MD Unavailable [phone] Reason for Visit * Reason Onset Date Comments Refill Request 01/29/2025 Encounter Details Date Type Department Care Team (Late st Contact Info) Description 01/29/2025 [facility] [address] [place] [address] Tatiana Cohen, HOMEWORKER [address] [facility] [address] [place] [address] Refill Request Social History Tobacco [...] in an overnight intermediate, or couch-surfing.) Yes 11/09/2024 Are you worried [...] on file Legal Sex Female 8:25 AM TRADE MARKER Gender Identity Not on file Sexual Orientation Not on file documented as of this encounter Miscellaneous Notes * Telephone Encounter - Juliana Watts RN - 01/29/2025 9:41 AM CDT Narcotic Refill Request Medication(s) requested: Hydromorphone 2mg tab Person Requesting Refill: Gianna 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 no Is pain being adequately controlled on the current regimen?: yes Experiencing any side effects from medication?: no Date of most recent appointment: 01/18/25 w/ Tatiana Cohen Any No Show Visits: none Next appointment: 02/15/25 Last fill date and by whom: Tatiana Cohen on 01/22/25 REFERENCE DATA EXPERT Reviewed: no access Send to provider: Tatiana Cohen and SOFIA ReynagaCC documented in this encounter Plan of Treatment Upcoming Encounters Date Type Department Care Team (Late st Contact Info) Description 02/15/2025 10:30 AM CDT Lab [facility] Cancer [address] [phone] Olinda Vora APRN HOMEWORKER [address] [place] [address] 02/15/2025 11:00 AM CDT Oncology Visit [facility] [address] [phone] Olinda Vora APRN HOMEWORKER [address] [place] [address] 04/09/2025 3:00 PM TRADE MARKER Lab [facility] Cancer [address] [phone] Case Samuel MD [address] [place] [address] 484, [address] [place], [place] [address] 04/09/2025 3:30 PM TRADE MARKER Oncology Visit [facility] Cancer [address] [phone] Case Samuel MD [address] [place] [address] 484, [address] [place], [place] [address] documented as of this encounter Goals Goal [...] crisis documented in this encounter Care Teams Halver Machine Operator Relationship Specialty Start Date End Date Veronica Joseph MD [address] [place] [address] PCP - General Family Medicine 06/18/24 Roxy [facility] Medical Student 04/03/24 Case Samuel MD [address] [facility] [address], [address] [place] [address] Assigned Pediatric Specialist Provider 05/18/24 Juhi Benson, RN Specialty Historical Records Administrator Hematology & Oncology 05/29/24 Olinda Vora APRN HOMEWORKER [address] [place] [address] Assigned Cancer Care Provider 08/16/24 Stiven Stanley LP [address] [place] [address] Psychologist PSYCHOLOGIST CLINICAL 10/25/24 Star Galarza MD [facility] [place] [address] Home Infusion Following Provider Infectious Diseases 11/07/24 documented as of this encounter
--- OUTSIDE RECORDS SUMMARY | 2025-02-09 01:51 | XMS_ITS | Encounter Summary ---
Author Organization [facility] Address [address] [place] [address]. [place] [address] Care Team Providers Care Thermostat Maker Name Role Phone Roxy Mor Unavailable Unavailable Case Samuel MD Unavailable [phone] Juhi Benson RN Unavailable Unavailable Veronica Joseph MD Primary Care Provider [phone] Olinda Vora APRN ROCK ROOM WORKER Unavailable [phone] Stiven Stanley LP Unavailable Star Galarza MD Unavailable [phone] Encounter Details Date Type Department Care Team (Latest Contact Info) Description 01/29/2025 Travel Social History Tobacco Use Types Packs/Day [...] file Legal Sex Female 8:25 AM DIRECTOR INTERNAL COMMUNICATIONS Gender Identity Not on file Sexual Orientation Not on file documented as of this encounter Plan of Treatment Upcoming Encounters Date Type Department Care Team (Late st Contact Info) Description 02/15/2025 10:30 AM CDT Lab [facility] Cancer [address] [address] Olinda Vora APRN ROCK ROOM WORKER [address] [place] [address] 02/15/2025 11:00 AM CDT Oncology Visit [facility] [address] [phone] Olinda Vora APRN ROCK ROOM WORKER [address] [place] [address] 04/09/2025 3:00 PM DIRECTOR INTERNAL COMMUNICATIONS Lab [facility] Cancer [address] [address] Case Samuel MD [address] [place] [place] [address] 484, [address] [place], [place] [phone] 04/09/2025 3:30 PM DIRECTOR INTERNAL COMMUNICATIONS Oncology Visit [facility] [address] [place] [address] Case Samuel MD 420 [facility] 484, [address] [place], [place] [address] documented as of this encounter Goals Goal [...] on filedocumented in this encounter Care Teams Thermostat Maker Relationship Specialty Start Date End Date Veronica Joseph MD [address] [place] [address] PCP - General Family Medicine 06/18/24 Mor Ramsey Medical Student 04/03/24 Case Samuel MD [address] [place] [place] [address] 484, [address] [place], [place] [address] Assigned Pediatric Specialist Provider 05/18/24 Juhi Benson, RN Specialty Management Recruiter Hematology & Oncology 05/29/24 Olinda Vora APRN ROCK ROOM WORKER [address] [place] [address] Assigned Cancer Care Provider 08/16/24 Stiven Stanley LP [address] [facility] [place] [place] [address] Psychologist PSYCHOLOGIST CLINICAL 10/25/24 Star Galarza MD [facility] [address] [facility] [address] [place] [address] Home Infusion Following Provider Infectious Diseases 11/07/24 documented as of this encounter
[2025-02-09 01:52] VITALS: BP 130/78; PULSE 70; RESP 16; TEMP 36.7; O2SAT 98; BMI 20.8
--- OUTSIDE RECORDS SUMMARY | 2025-02-09 01:52 | XMS_ITS | Clinical Summary ---
Author Organization [facility] Address [address] [place] [address] Care Team Providers Care Conservation Of Resources Commissioner Name Role Phone Needs Pcp, Assignment Primary Care Provider [phone] Source Comments You are receiving this document as you are listed as the primary care provider,follow-up provider, or the patient has been referred to you for consultation.This is in compliance with the Medicare andMedicaid EHR Incentive Program,which states Providers who transition their patient to another setting of careor provider of care or refers their patient to another provider of care shouldprovide summary care record for each transition of care or referral. [facility] Allergies Active Allergy Reactions Criticality Noted Date Comments Banana Anaphylaxis,Angioede ma,Hi ves,Swelling,Throat Irritation High 06/25/2019 Swelling of Throat Other Reaction(s): Throat Swelling/Closing Cashew Nut Oil Hives High 06/25/2019 Ketorolac Anaphylaxis,Hives High 04/23/2021 Latex Hives,Rash High 09/15/2022 Morphine Hives,Other, see comments,Rash,Seizures,Un known High 05/22/2019 Seizure. Other opioids tolerated. Nuts Anaphylaxis,Hives High 06/25/2019 Per patient, allergy to only cashew nut Tramadol Hives High 12/05/2021 Medications Ferrous Sulfate (IRON OR) Take 1 Tablet by mouth daily. Active hydroxyurea (HYDREA) 500 MG capsule Take 4 Capsules (2,000 mg) by mouth. Active Glutamine, Sickle Cell, 5 g PACK Take 30 g by mouth. Active FLUoxetine (PROZAC) 40 MG capsule Take 1 Capsule (40 mg) by mouth. 10/13/2024 Active apixaban (ELIQUIS) 5 MG tablet Take 1 Tablet (5 mg) by mouth. 09/10/2024 Active Encounters Date Type Department Care Team Description 02/08/2025 1:13 PM CDT - 02/08/2025 3:07 PM CDT Emergency HH Emergency [address] [place] [id number] Alex Dubon MD Sickle-cell disease with pain (HRC) (Primary Dx) Discharge Disposition: Home from Last 3 Months Social History Tobacco [...] Health Maintenance Due Date Last Done Comments Cervical Cancer Screening Due 1994 Hep C Screening (Preventive Services) 1994 HIV Screening (Preventive Services) 2010 Adult Preventive Visit 2012 HepB Vaccine (1) 2013 DTaP/Tdap/Td Vaccine (7 - Tdap) 01/18/2017 01/18/2007, 11/20/1999, 07/18/1998, Additional history exists COVID-19 Vaccine ( season) 2024 03/26/2023, 02/27/2021, 02/06/2021 Influenza Vaccine (#1) 2024 , 01/15/2023, 04/30/2022, Additional history exists Zoster/Shingles Vaccine (1 of 2) 2044 Hib Vaccine Completed 11/13/1995, 02/24, 1994, Additional history exists IPV (Polio) Vaccine Completed 11/20/1999, 07/18/1998, 11/13/1995, Additional history exists HepA Vaccine Completed 10/03/2008, 11/2008, 11/18/2007, Additional history exists HPV Vaccine Completed 01/24/2009, 09/24, 03/28/2008, Additional history exists MCV4 Vaccine Completed 04/13/2011, 09/24, 01/18/2007 Pneumococcal Vaccine Aged Out 01/18/2025 No long er eligible based on patient's age to complete this topic Meningococcal B Vaccine Aged Out No l onger eligible based on patient's age to complete this topic Procedures Procedure Name Priority Date/Time Associated Diagnosis Comments RETIC, AUTOMATED STAT 02/08/2025 1:31 PM CDT COMPLETE BLOOD COUNT-NO DIFF STAT 02/08/2025 1:31 PM CDT BASIC METABOLIC PANEL STAT 02/08/2025 1:31 PM CDT from Last 3 Months Results * (ABNORMAL) BASIC METABOLIC PANEL (02/08/2025 1:31 PM CDT) Sodium 139 136 - 145 mmol/L 02/08[facility]2025 [facility] Potassium 4.6 3.5 - 5.1 mmol/L 02/08/2025 1:53 PM T [facility] Chloride 111(H) 98 - 109 mmol/L 02/08/2025 1:53 PM T [facility] CO2 19(L) 20 - 29 mmol/L 02/08/2025 1:53 PM T [facility] Anion Gap 9 6 - 16 mmol/L 02/08/2025 1:53 PM T [facility] Calcium 9.0 8.4 - 10.4 mg/dL 02/08/2025 1:53 PM T [facility] BUN 11 7 - 26 mg/dL 02/08/2025 1:53 PM [facility] Creatinine 0.62 0.55 - 1.02 mg/dL 02/08/2025 1:53 PM [facility] Glucose 96 70 - 100 mg/dL 02/08/2025 1:53 PM T [facility] Comment:The given reference range is for the fasting state. Non-fasting reference range for glucose is 70 - 180 mg/dL. GFR, Estimated >60 >60 mL/min/1.7 3m2 02/08/2025 1:53 PM CDT [facility] Blood Venipuncture / Unknown 02/08/2025 1:31 PM CDT 02/08/2025 1:36 PM CDT us Alex Dubon MD LAB_1 Final Result [facility] CLIA: [id number] [address] [place] [address] * (ABNORMAL) HEMOGRAM/PLTS (02/08/2025 1:31 PM CDT) WBC 16.5(H) 3.5 - 10.5 x10(9)/L 02/08/2025 1:40 PM T [facility] RBC 2.48(L) 3.90 - 5.03 x10(12)/L 02/08/2025 1:40 PM T [facility] Hemoglobin 8.5(L) 12.0 - 15.5 g/dL 02/08/2025 1:40 PM [facility] HCT 24.6(L) 34.9 - 44.5 % 02/08/2025 1:40 PM T [facility] MCV 99.2 80.0 - 100.0 fL 02/08/2025 1:40 PM T [facility] MCH 34.3(H) 27.6 - 33.3 pg 02/08/2025 1:40 PM T [facility] MCHC 34.6 31.5 - 35.2 g/dL 02/08/2025 1:40 PM [facility] RDW 17.5(H) 11.9 - 15.5 % 02/08/2025 1:40 PM T [facility] Platelets 430 150 - 450 x10(9)/L 02/08/2025 1:40 PM T [facility] Blood Venipuncture / Unknown 02/08/2025 1:31 PM CDT 02/08/2025 1:36 PM CDT us Alex Dubon MD LAB_1 Final Result [facility] CLIA: [id number] [address] [place] [address] * (ABNORMAL) Retic, Automated (02/08/2025 1:31 PM CDT) Retic % 14.50(H) 0.77 - 2.36 % 02/08/2025 3:21 PM CDT [facility] Retic Absolute 0.363(H) 0.038 - 0.113 x10(6)/uL 02/08/2025 3:21 PM CDT [facility] Blood Venipuncture / Unknown 02/08/2025 1:31 PM CDT 02/08/2025 1:36 PM CDT us Alxe Dubon MD LAB_1 Final Result [facility] CLIA: [id number] [address] [place] [address], [facility] from Last 3 Months Care Teams Conservation Of Resources Commissioner Relationship Specialty Start Date End Date Needs Pcp, [place] [address] PCP - General 02/08/25
--- OUTSIDE RECORDS SUMMARY | 2025-02-09 01:52 | XMS_ITS | Encounter Summary ---
Author Organization [facility] Address [address] [place] [address]. [place] [address] Care Team Providers Care Truck And Transport Mechanic Name Role Phone Elvira Ramseyc Unavailable Unavailable Case Samuel MD Unavailable [phone] Juhi Benson RN Unavailable Unavailable Veronica Joseph MD Primary Care Provider [phone] Olinda Vora APRN DIRECTOR ZONE Unavailable [phone] Stiven Stanley LP Unavailable Star Galarza MD Unavailable [phone] Aliyah Hudson RN Unavailable Unavailable North Meyers RN Unavailable Unavailable Encounter Details Date Type Department Care Team (Late st Contact Info) Description 12/10/2024 Home Infusion [facility] [address] [place] [phone] North Meyers, RN Social History Tobacco Use Types Packs/Day [...] on file Legal Sex Female 8:25 AM CSR Gender Identity Not on file Sexual Orientation Not on file documented as of this encounter Progress Notes * North Meyers RN - 12/10/2024 2:43 PM CDT [facility] Progress Note Voice mail left for patient regarding delivery of supplies on 12/06. If that shipment was received and refrigerated they should be good for supplies for a couple of days. If not they will need new delivery. North documented in this encounter Plan of Treatment Upcoming Encounters Date Type Department Care Team (Late st Contact Info) Description 02/15/2025 10:30 AM CDT [facility] [address] [place] [address] Olinda Vora APRN [address] [address] 02/15/2025 11:00 AM CDT Oncology Visit [facility] Cancer [address] [phone] Olinda Vora APRN DIRECTOR ZONE [address] [place] [address] 04/09/2025 3:00 PM CSR Lab [address] [phone] Case Samuel MD [address] [place] [address] 484, [address] [place], [place] [address] 04/09/2025 3:30 PM CSR Oncology Visit [facility] Cancer [address] [address] Case Samuel MD [address] [place] [address] 484, [address] [place], [place] [address] documented as of this encounter Goals Goal [...] filedocumented in this encounter Care Teams Truck And Transport Mechanic Relationship Specialty Start Date End Date Veronica Joseph MD [address] [place] [address] PCP - General Family Medicine 06/18/24 Mor Ramsey Medical Student 04/03/24 Case Samuel MD [address] [facility] 484, [address] [place], [place] [address] Assigned Pediatric Specialist Provider 05/18/24 Juhi Benson, SOFIA Specialty Desolderer Hematology & Oncology 05/29/24 Olinda Vora APRN DIRECTOR ZONE [address] [place] [address] Assigned Cancer Care Provider 08/16/24 Stiven Stanley LP [address] [place] [address] Psychologist PSYCHOLOGIST CLINICAL 10/25/24 Star Galarza MD [facility] [address] [place], [place] [address] Home Infusion Following Provider Infectious Diseases 11/07/24 Aliyah Hudson RN Home Infusion Plate Inspector 11/16/24 01/04/25 North Meyers RN [facility] Resource Team 12/10/24 12/20/24 documented as of this encounter
--- OUTSIDE RECORDS SUMMARY | 2025-02-09 01:52 | XMS_ITS | Encounter Summary ---
Author Organization [facility] Address [address] [place] [address]. [place] [address] Care Team Providers Care Clubhouse Manager Name Role Phone Roxy Mor Unavailable Unavailable Case Samuel MD Unavailable [phone] Juhi Benson RN Unavailable Unavailable Veronica Joseph MD Primary Care Provider [phone] Olinda Vora APRN CONSUMER ELECTRONIC RETAIL SPECIALIST Unavailable [phone] Stiven Stanley LP Unavailable Star Galarza MD Unavailable [phone] Encounter Details Date Type Department Care Team (Latest Contact Info) Description 02/02/2025 Travel Social History Tobacco Use Types Packs/Day [...] in an overnight jail, or couch-surfing.) Yes 11/09/2024 Are you worried [...] on file Legal Sex Female 8:25 AM FIRE HYDRANT MECHANIC Gender Identity Not on file Sexual Orientation Not on file documented as of this encounter Plan of Treatment Upcoming Encounters Date Type Department Care Team (Late st Contact Info) Description 02/15/2025 10:30 AM CDT Lab [facility] Cancer [address] [phone] Olinda Vora APRN CONSUMER ELECTRONIC RETAIL SPECIALIST [address] [place] [phone] 02/15/2025 11:00 AM CDT Oncology Visit [facility] Cancer [address] [phone] Olinda Vora APRN CONSUMER ELECTRONIC RETAIL SPECIALIST [address] [place] [phone] 04/09/2025 3:00 PM FIRE HYDRANT MECHANIC Lab [facility] Cancer [address] [address] Case Samuel MD [address] [place] [address] 484, [address] [place], [place] [phone] 04/09/2025 3:30 PM FIRE HYDRANT MECHANIC Oncology Visit [facility] [address] [place] [address] Case Samuel MD [address] [facility] [address], [address] [place], [place] [address] documented as of this encounter Goals Goal [...] on filedocumented in this encounter Care Teams Clubhouse Manager Relationship Specialty Start Date End Date Veronica Joseph MD [address] [place] [address] PCP - General Family Medicine 06/18/24 Mor Ramsey Medical Student 04/03/24 Case Samuel MD [address] [place] [address] 484, [address] [place], [place] [address] Assigned Pediatric Specialist Provider 05/18/24 Juhi Benson, RN Specialty Customer Service Sales Associate Hematology & Oncology 05/29/24 Olinda Vora APRN CONSUMER ELECTRONIC RETAIL SPECIALIST [address] [place] [address] Assigned Cancer Care Provider 08/16/24 Stiven Stanley LP [address] [facility] [place] [address] Psychologist PSYCHOLOGIST CLINICAL 10/25/24 Star Galarza MD [facility] [address] [facility] [address] [place] [address] Home Infusion Following Provider Infectious Diseases 11/07/24 documented as of this encounter
--- OUTSIDE RECORDS SUMMARY | 2025-02-09 01:52 | XMS_ITS | Encounter Summary ---
Author Organization [facility] Address [address] [place] [address]. [place] [address] Care Team Providers Care Internet Technology Manager Name Role Phone Elvira Ramseyc Unavailable Unavailable Case Samuel MD Unavailable [phone] Juhi Benson RN Unavailable Unavailable Veronica Joseph MD Primary Care Provider [phone] Olinda Vora APRN SHEET METAL OPERATOR Unavailable [phone] Stiven Stanley Unavailable Carmen Casillas RN Unavailable [phone] Star Galarza MD Unavailable [phone] Suzanne Carter RN Unavailable Unavailable Enrico Mckoy RN Unavailable UnavailAliyah frey Do, RN Unavailable Unavailable Juhi Smith RN Unavailable UnavailEnrico Cruz RN Unavailable UnavailNorth Alejandro RN Unavailable Unavailable Encounter Details Date Type Department Care Team (Late st Contact Info) Description 11/06/2024 Home Infusion [facility] [address] [place] [phone] Carmen Casillas, SOFIA Social History Tobacco Use Types Packs/Day [...] in an overnight halfway, or couch-surfing.) Yes 11/09/2024 Are you worried [...] motionally safe where you currently live? Yes 11/10/2024 Within the past 12 months, h ave you been hit, slapped, kicked or otherwise physically hurt by someone? No 11/10/2024 Within the past 12 months, h ave you been humiliated or emotionally abused in other ways by your partner or ex-partner? No 11/10/2024 Comments No Sex and Gender Information Value Date Recorded Sex Assigned at Not on file Legal Sex Female 8:25 AM SAMPLE DRILLER Gender Identity Not on file Sexual Orientation Not on file documented as of this encounter Plan of Treatment Upcoming Encounters Date Type Department Care Team (Late st Contact Info) Description 02/15/2025 10:30 AM CDT Lab [facility] Cancer [address] [phone] Olinda Vora APRN [address] [address] 02/15/2025 11:00 AM CDT Oncology Visit [facility] Cancer [address] [phone] VielkaOlinda APRN SHEET METAL OPERATOR [address] [place] [address] 04/09/2025 3:00 PM SAMPLE DRILLER Lab [facility] 9[address] [place] [phone] Case Samuel MD [address] [place] [address] 484, [address] [place], [place] [address] 04/09/2025 3:30 PM SAMPLE DRILLER Oncology Visit [address] [phone] Case Samuel MD [address] [place] [address] 484, [address] [place], [place] [address] documented as of this encounter Goals Goal [...] on filedocumented in this encounter Care Teams Internet Technology Manager Relationship Specialty Start Date End Date Veronica Joseph MD [address] [place] [address] PCP - General Family Medicine 06/18/24 Mor Ramsey Medical Student 04/03/24 Case Samuel MD [address] [facility] 484, [address] [place] [address] Assigned Pediatric Specialist Provider 05/18/24 Juhi Benson, RN Specialty History Instructor Hematology & Oncology 05/29/24 Olinda Vora APRN SHEET METAL OPERATOR 9[address] [place] [address] Assigned Cancer Care Provider 08/16/24 Stiven Stanley LP [address] [place] [address] Psychologist PSYCHOLOGIST CLINICAL 10/25/24 Carmen Casillas, SOFIA I Resource Team Primary Care - CC 11/06/24 11/08/24 Star Galarza MD [facility] [address] [facility]. [address] [place], [place] [address] Home Infusion Following Provider Infectious Diseases 11/07/24 Suzanne Carter, SOFIA Home Infusion Restaurant Area Director 11/08/24 11/16/24 Enrico Mckoy, RN [facility] Resource Team 11/14/24 11/15/24 Aliyah Hudson RN Home Infusion Restaurant Area Director 11/16/24 01/04/25 Juhi Smith, SOFIA [facility] Resource Team 12/03/24 12/05/24 Enrico Mckoy RN [facility] Resource Team 12/05/24 12/06/24 North Meyers, SOFIA [facility] Resource Team 12/10/24 12/20/24 documented as of this encounter
--- OUTSIDE RECORDS SUMMARY | 2025-02-09 01:52 | XMS_ITS ---
Author Organization [facility] Address [address] [place] [address] Care Team Providers Care Certified Cytotechnologist Name Role Phone Roxy Mor Unavailable Unavailable Case Samuel MD Unavailable [phone] Juhi Benson RN Unavailable Unavailable Veronica Joseph MD Primary Care Provider [phone] Olinda Vora APRN LEGAL LIBRARIAN Unavailable [phone] Stiven Stanley Unavailable Star Galarza MD Unavailable [phone] Anti-infective Status:Closed (Closed) Start date:11/06/2024 Enrollment date:11/07/2024 End date:01/04/2025 Close reason:Therapy Completed Linked medications:ceFAZolin Sodium (Discontinued) Related program episode:Home Infusion (Closed) Continued Care and Services Coordination
--- OUTSIDE RECORDS SUMMARY | 2025-02-09 01:52 | XMS_ITS ---
Author Organization [place] Address [address] [place] [address] Care Team Providers Care Spike Maker Name Role Phone Mor Ramsey Unavailable Unavailable Case Samuel MD Unavailable [phone] Juhi Benson RN Unavailable Unavailable Veronica Joseph MD Primary Care Provider [phone] Olinda Vora APRN MORTGAGE LOAN INTERVIEWER Unavailable [phone] Stiven Stanley Unavailable Star Galarza MD Unavailable [phone] Home Infusion Status:Closed (Closed) Start date:11/06/2024 Enrollment date:11/07/2024 Enrollment reason:Identified using referral data End date:01/04/2025 Close reason:Therapy Completed Related service episodes:Anti-infective (Closed) Continued Care and Services Coordination This section includes services coordinated for Home Infusion. [facility] Name Services Phone [facility] [phone]
--- OUTSIDE RECORDS SUMMARY | 2025-02-09 01:52 | XMS_ITS | Encounter Summary ---
Author Organization [place] Address [address] [place] [address]. [place] [address] Care Team Providers Care Social Science Teacher Name Role Phone Elvira Ramseyc Unavailable Unavailable Case Samuel MD Unavailable [phone] Juhi Benson RN Unavailable Unavailable Veronica Joseph MD Primary Care Provider [phone] Olinda Vora APRN POWER CRANE OPERATOR Unavailable [phone] Stiven Stanley Unavailable Star Galarza MD Unavailable [phone] Reason for Visit * Reason Onset Date Comments Refill Request 01/08/2025 Encounter Details Date Type Department Care Team (Late st Contact Info) Description 01/08/2025 [facility] [address] [place] [address] Case Samuel MD [address] [place] [address] 484, [address] [place], [place] [address] Refill Request Social History Tobacco Use Types [...] on file Legal Sex Female 8:25 AM NATURAL SCIENCES DEPARTMENT CHAIR Gender Identity Not on file Sexual Orientation Not on file documented as of this encounter Miscellaneous Notes * Telephone Encounter - Hawa Gordon RN - 01/08/2025 11:17 AM CDT Images from the original note were not included. Narcotic Refill Request Medication(s) requested: hydromorphone Person Requesting Refill:Natacha (pt) What pain is the medication treating: back How is the medication being taken?:1 tablet every 6 hours Does pt have enough for today? none Is pain being adequately controlled on the current regimen?: okay, requires Intermittent ED visits/IVF/Pain meds. Experiencing any side effects from medication?: denies Date of most recent appointment: 11/24/2024 Tatiana Cohen CNP Any No Show Visits:none recently Next appointment: 01/16/2025 Tatiana Cohen CNP Last fill date and by whom: Dr. Samuel MANUFACTURING LAB TECHNICIAN Reviewed: yes Send to provider: routed to Tatiana Cohen CNP documented in this encounter Plan of Treatment Upcoming Encounters Date Type Department Care Team (Late st Contact Info) Description 02/15/2025 10:30 AM CDT Lab [facility] Cancer [address] [phone] Olinda Vora APRN POWER CRANE OPERATOR [address] [place] [address] 02/15/2025 11:00 AM CDT Oncology Visit [address] [phone] Olinda Vora APRN POWER CRANE OPERATOR [address] [place] [address] 742645 04/09/2025 3:00 PM NATURAL SCIENCES DEPARTMENT CHAIR Lab [address] [phone] Case Samuel MD [address] [place], [place] [address], [address] [place], [place] [address] 04/09/2025 3:30 PM NATURAL SCIENCES DEPARTMENT CHAIR Oncology Visit [address] [phone] Case Samuel MD [address] [place] [address] 484, [address] [place], [place] 408075 documented as of this encounter Goals Goal [...] crisis documented in this encounter Care Teams Social Science Teacher Relationship Specialty Start Date End Date Veronica Joseph MD [address] [place] [address] PCP - General Family Medicine 06/18/24 Mor Ramsey Medical Student 04/03/24 Case Samuel MD [address] [facility] 484, [address] [place], [place] 933275 Assigned Pediatric Specialist Provider 05/18/24 Juhi Benson, RN Specialty Application Systems Architect Hematology & Oncology 05/29/24 Olinda Vora APRN POWER CRANE OPERATOR 909 [place] [address] Assigned Cancer Care Provider 08/16/24 Stiven Stanley LP [address] [facility] [place] [address] Psychologist PSYCHOLOGIST CLINICAL 10/25/24 Star Galarza MD [facility] [address] [place] [address] Home Infusion Following Provider Infectious Diseases 11/07/24 documented as of this encounter
--- OUTSIDE RECORDS SUMMARY | 2025-02-09 01:52 | XMS_ITS | Encounter Summary ---
Author Organization [place] Address [address] [place] [address]. [place] [address] Care Team Providers Care Bone Cooking Operator Name Role Phone Elvira Ramseyc Unavailable Unavailable Case Samuel MD Unavailable [phone] Juhi Benson RN Unavailable Unavailable Veronica Joseph MD Primary Care Provider [phone] Olinda Vora APRN ENGLISH LANGUAGE LEARNER TEACHER Unavailable [phone] Marissa Fierro RN Unavailable [phone] Stiven Stanley LP Unavailable Carmen Casillas RN Unavailable [phone] Star Galarza MD Unavailable [phone] Suzanne Carter RN Unavailable Unavailable Enrico Mckoy RN Unavailable UnavailAliyah frey Do, RN Unavailable Unavailable Juhi Smith RN Unavailable UnavailEnrico Cruz RN Unavailable UnavailNorth Alejandro RN Unavailable Unavailable Encounter Details Date Type Department Care Team (Late st Contact Info) Description 10/06/2024 [facility] Advanced Treatment [address] [phone] Lucero Jean Social History Tobacco Use Types Packs/Day Years [...] an overnight senior living, or couch-surfing.) Yes 10/10/2024 Are you worried [...] on file Legal Sex Female 8:25 AM DISTRICT RECRUITER Gender Identity Not on file Sexual Orientation Not on file documented as of this encounter Plan of Treatment Upcoming Encounters Date Type Department Care Team (Late st Contact Info) Description 02/15/2025 10:30 AM CDT Lab [address] [address] Olinda Vora APRN [address] [address] 02/15/2025 11:00 AM CDT Oncology Visit [facility] [address] [phone] Olinda VoraJAVIER ENGLISH LANGUAGE LEARNER TEACHER 909 [place], [place] 9[address]85 04/09/2025 3:00 PM DISTRICT RECRUITER Lab M [facility] 909 [place] [phone] Case Samuel MD 420 [facility] 484, [address] [place], [place] [address]605 04/09/2025 3:30 PM DISTRICT RECRUITER Oncology Visit [address] [phone] Case Samuel MD 420 [facility] 484, [address] [place], [place] 578165 documented as of this encounter Goals Goal [...] Last Indicated Resolved Time Rule Out COVID-19 10/14/2024 10/14/2024 10/14/2024 3:56 PM CDT Human Metapneumovirus 10/14/2024 10/14/20242024 7:40 PM CDT Rule Out COVID-19 11/02/2024 11/02/2024 11/03/2024 12:23 AM CDT documented as of this encounter Care Teams Bone Cooking Operator Relationship Specialty Start Date End Date Veronica Joseph MD [address] [place] [address] PCP - General Family Medicine 06/18/24 [facility] 04/03/24 Case Samuel MD [address] [facility] 484, [address] [place], [place] [address] Assigned Pediatric Specialist Provider 05/18/24 Juhi Benson, SOFIA Specialty Handbag Designer Hematology & Oncology 05/29/24 Olinda Vora APRN ENGLISH LANGUAGE LEARNER TEACHER [address] [place] [address] [id number] Assigned Cancer Care Provider 08/16/24 Marissa Fierro, RN RN Clinical Product Navigator Primary Care - CC 10/13/24 10/16/24 Stiven Stanley LP [address] [place] [address] Psychologist PSYCHOLOGIST CLINICAL 10/25/24 Carmen Casillas, RN [facility] Resource Team Primary Care - CC 11/06/24 11/08/[address] [facility] [place] [address] Home Infusion Following Provider Infectious Diseases 11/07/24 Suzanne Carter, RN Home Infusion Landscape Foreman 11/08/24 11/16/24 Enrico Mckoy, RN [facility] Resource Team 11/14/24 11/15/24 Aliyah Hudson RN Home Infusion Landscape Foreman 11/16/24 01/04/25 Juhi Smith, RN [facility] Resource Team 12/03/24 12/05/24 Enrico Mckoy RN [facility] Resource Team 12/05/24 12/06/24 [place], RN [facility] Resource Team 12/10/24 12/20/24 documented as of this encounter
--- OUTSIDE RECORDS SUMMARY | 2025-02-09 01:52 | XMS_ITS | Encounter Summary ---
Author Organization [place] Address [address] [place] [address]. [place] [address] Care Team Providers Care Cat And Dog Bather Name Role Phone Roxy Mor Unavailable Unavailable Case Samuel MD Unavailable [phone] Juhi Benson RN Unavailable Unavailable Veronica Joseph MD Primary Care Provider [phone] Olinda Vora APRN WAREHOUSE LOADER Unavailable [phone] Stiven Stanley LP Unavailable Star Galarza MD Unavailable [phone] Encounter Details Date Type Department Care Team (Latest Contact Info) Description 01/06/2025 Travel Social History Tobacco Use Types Packs/Day [...] on file Legal Sex Female 8:25 AM REFRIGERATING OILER Gender Identity Not on file Sexual Orientation Not on file documented as of this encounter Plan of Treatment Upcoming Encounters Date Type Department Care Team (Late st Contact Info) Description 02/15/2025 10:30 AM CDT Lab [facility] Cancer [address] [phone] Olinda Vora APRN WAREHOUSE LOADER [address] [place] [address] 9664[address] 02/15/2025 11:00 AM CDT Oncology Visit [facility] Cancer [address] [phone] Olinda Vora APRN WAREHOUSE LOADER [address] [place] [address] 586[address] 04/09/2025 3:00 PM REFRIGERATING OILER Lab [facility] Cancer [address] [address] Case Samuel MD [address] [place] [address] 484, [address] [place], [place] [id number] 04/09/2025 3:30 PM REFRIGERATING OILER Oncology Visit [facility] 9[address] [place] [address] Case Samuel MD 420 [facility] 484, [address] [place], [place] [address] documented as of this encounter Goals Goal Patient Goal Type Associated Problems Recent Progress Patient-Stated? Author Pain Management General On track( 025 2:37 PM CDT) Yes Juih Benson, RN Note: Goal Statement: [...] on filedocumented in this encounter Care Teams Cat And Dog Bather Relationship Specialty Start Date End Date Veronica Joseph MD [address] [place] [address] PCP - General Family Medicine 06/18/24 Mor Ramsey Medical Student 04/03/24 Case Samuel MD [address] [place] [address] 484, [address] [place], [place] [address]035 Assigned Pediatric Specialist Provider 05/18/24 uJhi Benson, RN Specialty Waiter/Waitress Third Class Hematology & Oncology 05/29/24 Olinda Vora APRN WAREHOUSE LOADER [address] [place] [address] Assigned Cancer Care Provider 08/16/24 Stiven Stanley LP [address] [facility] [address] Psychologist PSYCHOLOGIST CLINICAL 10/25/24 Star Galarza MD [facility] [address] [facility] [address] [place] [address] Home Infusion Following Provider Infectious Diseases 11/07/24 documented as of this encounter
--- OUTSIDE RECORDS SUMMARY | 2025-02-09 01:52 | XMS_ITS | Encounter Summary ---
Author Organization [place] Address [address] [place] [address]. [place] [address] Care Team Providers Care Blacking Machine Operator Name Role Phone Mor Ramsey Unavailable Unavailable Case Samuel MD Unavailable [phone] Juhi Benson RN Unavailable Unavailable Veronica Joseph MD Primary Care Provider [phone] Olinda Vora APRN FACS TEACHER Unavailable [phone] Marissa Fierro RN Unavailable [phone] Stiven Stanley LP Unavailable Carmen Casillas RN Unavailable [phone] Star Galarza MD Unavailable [phone] Suzanne Carter RN Unavailable Unavailable Enrico Mckoy RN Unavailable UnavailAliyah frey Do, RN Unavailable Unavailable Juhi Smith RN Unavailable UnavailEnrico Cruz RN Unavailable UnavailNorth Alejandro RN Unavailable Unavailable Encounter Details Date Type Department Care Team (Late st Contact Info) Description 10/05/2024 [facility] [address] [place] [address] Juhi Benson RN Social History Tobacco Use Types Packs/Day Years Used Date Smoking Tobacco: Never Smokeless Tobacco: Never Alcohol Use Standard Drinks/Week Comments Not Currently 0 (1 standard drink = 0.6 oz pur e alcohol) Food Insecurity Answer Date Recorded Within the past 12 months, d id you worry that your food would run out before you got money to buy more? No 09/20/2024 Within the past 12 months, d id the food you bought just not last and you didn t have money to get more? No 09/20/2024 Housing Stability Answer Date Recorded Do you have housing? (Sae montes is defined as stable permanent housing and does not include staying outside in a car, in a tent, in an abandoned building, in an overnight skilled nursing, or couch-surfing.) Yes 09/20/2024 Are you worried about losing your housing? No 09/20/2024 Financial Resource Strain Answer Date R ecorded Within the past 12 months, h ave you or your family members you live with been unable to get utilities (heat, electricity) when it was really needed? No 09/20/2024 Transportation Needs Answer Date Record ed Within the past 12 months, h as lack of transportation kept you from medical appointments, getting your medicines, non-medical meetings or appointments, work, or from getting things that you need? No 09/20/2024 Interpersonal Safety Answer Date Record ed Do you feel physically and e motionally safe where you currently live? Yes 09/20/2024 Within the past 12 months, h ave you been hit, slapped, kicked or otherwise physically hurt by someone? No 09/20/2024 Within the past 12 months, h ave you been humiliated or emotionally abused in other ways by your partner or ex-partner? No 09/20/2024 Comments No Sex and Gender Information Value Date Recorded Sex Assigned at Not on file Legal Sex Female 8:25 AM DIAMOND CUTTER Gender Identity Not on file Sexual Orientation Not on file documented as of this encounter Plan of Treatment Upcoming Encounters Date Type Department Care Team (Late st Contact Info) Description 02/15/2025 10:30 AM CDT Lab [address] [address] Olinda Vora APRN [address] [id number] 02/15/2025 11:00 AM CDT Oncology Visit [facility] Cancer [address] [place] [phone] Olinda Vora APRN FACS TEACHER [address] [place] [address] [phone] 04/09/2025 3:00 PM DIAMOND CUTTER Lab [facility] Cancer [address] [phone] Case Samuel MD [address] [place] [address] 484, [address] [place], [place] [address] 04/09/2025 3:30 PM DIAMOND CUTTER Oncology Visit [facility] Cancer [address] [phone] Case Samuel MD [address] [place] [address] 484, [address] [place], [place] [address] documented as of this encounter Goals Goal [...] documented as of this encounter Care Teams Blacking Machine Operator Relationship Specialty Start Date End Date Veronica Joseph MD [address] [place] [address] PCP - General Family Medicine 06/18/24 [facility] 04/03/24 Case Samuel MD 420 [facility] 484, [address] [place], [place] [address] Assigned Pediatric Specialist Provider 05/18/24 Juhi Benson, SOFIA Specialty Pulp Tester Hematology & Oncology 05/29/24 Olinda Vora APRN FACS TEACHER [address] [place] [address] 664315 Assigned Cancer Care Provider 08/16/24 Marissa Fierro, RN RN Clinical Product Navigator Primary Care - CC 10/13/24 10/16/24 Stiven Stanley LP [address] [place] [address] Psychologist PSYCHOLOGIST CLINICAL 10/25/24 Carmen Casillas, RN [facility] Resource Team Primary Care - CC 11/06/24 11/08/24 Star Galarza MD [facility] [address] [place] [address] Home Infusion Following Provider Infectious Diseases 11/07/24 Suzanne Catrer, RN Home Infusion Duty Engineer 11/08/24 11/16/24 Enrico Mckoy, RN [facility] Resource Team 11/14/24 11/15/24 Aliyah Hudson, RN Home Infusion Duty Engineer 11/16/24 01/04/25 Juhi Smith, RN [facility] Resource Team 12/03/24 12/05/24 Enrico Mckoy RN [facility] Resource Team 12/05/24 12/06/24 [place], RN [facility] Resource Team 12/10/24 12/20/24 documented as of this encounter
--- OUTSIDE RECORDS SUMMARY | 2025-02-09 01:52 | XMS_ITS | Encounter Summary ---
Author Organization [place] Address [address] [place] [address]. [place] [address] Care Team Providers Care Signal Fitter Name Role Phone Elvira Ramseyc Unavailable Unavailable Case Samuel MD Unavailable [phone] Juhi Benson RN Unavailable Unavailable Veronica Joseph MD Primary Care Provider [phone] Olinda Vora APRN RN CLINICAL Unavailable [phone] Stiven Stanley Unavailable Star Galarza MD Unavailable [phone] Encounter Details Date Type Department Care Team (Late st Contact Info) Description 01/30/2025 [facility] Medical Advice [facility] [address] [place] [address] Case Samuel MD 420 [facility] 484, [address] [place] [address] Social History Tobacco Use Types Packs/Day Years [...] on file Legal Sex Female 8:25 AM CONSUMER INSIGHT ANALYST Gender Identity Not on file Sexual Orientation Not on file documented as of this encounter Plan of Treatment Upcoming Encounters Date Type Department Care Team (Late st Contact Info) Description 02/15/2025 10:30 AM CDT Lab [facility] [address] [address] Olinda Vora APRN RN CLINICAL [address] [place] [address] 654235 02/15/2025 11:00 AM CDT Oncology Visit [facility] [address] [phone] Olinda Vora APRN RN CLINICAL [address] [place] [address] 400185 04/09/2025 3:00 PM CONSUMER INSIGHT ANALYST Lab [facility] [address] [phone] Case Samuel MD [address] [place] [address] 484, [address] [place] [address] 657345 04/09/2025 3:30 PM CONSUMER INSIGHT ANALYST Oncology Visit [facility] [address] [address] Case Samuel MD [address] [place], [place] [address], [address] [place], [place] [address] documented as of this encounter Goals Goal [...] on filedocumented in this encounter Care Teams Signal Fitter Relationship Specialty Start Date End Date Veronica Joseph MD [address] [place] [address] PCP - General Family Medicine 06/18/24 Mor Ramsey Medical Student 04/03/24 Case Samuel MD [address] [place] [address] 484, [address] [place] [address] Assigned Pediatric Specialist Provider 05/18/24 Juhi Benson, RN Specialty User Support Specialist Hematology & Oncology 05/29/24 Olinda Vora APRN RN CLINICAL [address] [place], [place] [address] Assigned Cancer Care Provider 08/16/24 Stiven Stanley LP [address] [facility] [place] [address] Psychologist PSYCHOLOGIST CLINICAL 10/25/24 Star Galarza MD [facility] [address] [place], [place] [address] Home Infusion Following Provider Infectious Diseases 11/07/24 documented as of this encounter
--- OUTSIDE RECORDS SUMMARY | 2025-02-09 01:52 | XMS_ITS | Encounter Summary ---
Author Organization [place] Address [address] [place] [address]. [place] [address] Care Team Providers Care Science Specialist Name Role Phone RoxyElvirac Unavailable Unavailable Case Samuel MD Unavailable [phone] Juhi Benson RN Unavailable Unavailable Veronica Joseph MD Primary Care Provider [phone] Olinda Vora APRN AUTOMOTIVE MACHINIST APPRENTICE Unavailable [phone] Stiven Stanley LP Unavailable Star Galarza MD Unavailable [phone] Encounter Details Date Type Department Care Team (Late st Contact Info) Description 01/30/2025 Results [facility]-Up [facility] [address] [place] [address] Svetlana Hess RN Social History Tobacco Use Types Packs/Day [...] on file Legal Sex Female 8:25 AM SPEEDOMETER INSPECTOR Gender Identity Not on file Sexual Orientation Not on file documented as of this encounter Plan of Treatment Upcoming Encounters Date Type Department Care Team (Late st Contact Info) Description 02/15/2025 10:30 AM CDT Lab [facility] Cancer [address] [phone] Olinda Vora APRN AUTOMOTIVE MACHINIST APPRENTICE [address] [place] [address] 02/15/2025 11:00 AM CDT Oncology Visit [facility] Cancer [address] [phone] Olinda Vora APRN AUTOMOTIVE MACHINIST APPRENTICE [address] [place] [address] 04/09/2025 3:00 PM SPEEDOMETER INSPECTOR Lab [facility] Cancer [address] [phone] Case Samuel MD 420 [facility] 484, [address] [place], [place] [address] 04/09/2025 3:30 PM SPEEDOMETER INSPECTOR Oncology Visit [facility] Cancer [facility] 9[address] [place] [phone] Case Samuel MD 420 [facility] 484, [address] [place] [address] documented as of this encounter Goals Goal [...] on filedocumented in this encounter Care Teams Science Specialist Relationship Specialty Start Date End Date Veronica Joseph MD [address] [place] [address] PCP - General Family Medicine 06/18/24 Mor Ramsey Medical Student 04/03/24 Case Samuel MD [address] [place] [address] 484, [address] [place] [address] Assigned Pediatric Specialist Provider 05/18/24 Juhi Benson, RN Specialty Telegraph Office Telephone Clerk Hematology & Oncology 05/29/24 Olinda Vora APRN AUTOMOTIVE MACHINIST APPRENTICE [address] [place] [address] Assigned Cancer Care Provider 08/16/24 Stiven Stanley LP [address] [place] [address] Psychologist PSYCHOLOGIST CLINICAL 10/25/24 Star Galarza MD [facility] [address] [place], [place] [address] Home Infusion Following Provider Infectious Diseases 11/07/24 documented as of this encounter
--- OUTSIDE RECORDS SUMMARY | 2025-02-09 01:52 | XMS_ITS ---
Author Organization [place] Address [address] [place] [address] Care Team Providers Care Store Team Leader Name Role Phone Roxy Mor Unavailable Unavailable Case Samuel MD Unavailable [phone] Juhi Benson RN Unavailable Unavailable Veronica Joseph MD Primary Care Provider [phone] Olinda Vora APRN RAIL CAR PAINTER/SANDBLASTER Unavailable [phone] Stiven Stanley LP Unavailable Star Galarza MD Unavailable [phone] Transitional Care Management Status:Closed (Closed) Start date:01/05/2025 Enrollment date:01/06/2025 End date:01/19/2025 Close reason:Goals met Continued Care and Services Coordination
--- OUTSIDE RECORDS SUMMARY | 2025-02-09 01:52 | XMS_ITS ---
Author Organization [place] Address [address] [place] [address] Care Team Providers Care Setter Automatic Spinning Lathe Name Role Phone Roxy Mor Unavailable Unavailable Case Samuel MD Unavailable [phone] Juhi Benson RN Unavailable Unavailable Veronica Joseph MD Primary Care Provider [phone] Olinda Vora APRN SPRAY DYER Unavailable [phone] Stiven Stanley LP Unavailable Star Galarza MD Unavailable [phone] Transitional Care Management Status:Enrolled (Active) Start date:02/01/2025 Enrollment date:02/01/2025 Continued Care and Services Coordination
--- OUTSIDE RECORDS SUMMARY | 2025-02-09 01:52 | XMS_ITS | Encounter Summary ---
Author Organization [facility] Address [address] [place] [address]. [place] [address] Care Team Providers Care Speech Correction Consultant Name Role Phone Mor Ramsey Unavailable Unavailable Case Samuel MD Unavailable [phone] Juhi Benson RN Unavailable Unavailable Veronica Joseph MD Primary Care Provider [phone] Olinda Vora APRN MANAGER INTRANET Unavailable [phone] Marissa Fierro RN Unavailable [phone] Stiven Stanley LP Unavailable Carmen Casillas RN Unavailable [phone] Star Galarza MD Unavailable [phone] Suzanne Carter RN Unavailable Unavailable Enrico Mckoy RN Unavailable UnavailAliyah frey Do, RN Unavailable Unavailable Juhi Smith RN Unavailable UnavailEnrico Cruz RN Unavailable UnavailNorth Alejandro RN Unavailable Unavailable Encounter Details Date Type Department Care Team (Late st Contact Info) Description 10/12/2024 [facility] [address] [place] [address] Juhi Benson RN Social History [...] in an overnight custodial, or couch-surfing.) Yes 10/10/2024 Are you worried [...] on file Legal Sex Female 8:25 AM CHEMICAL PRODUCTION MACHINE OPERATOR Gender Identity Not on file Sexual Orientation Not on file documented as of this encounter Plan of Treatment Upcoming Encounters Date Type Department Care Team (Late st Contact Info) Description 02/15/2025 10:30 AM CDT Lab [address] [address] Olinda Vora APRN [address] 146765 02/15/2025 11:00 AM CDT Oncology Visit [facility] Cancer [address] [place] [phone] Olinda Vora APRN MANAGER INTRANET [address] [place] [address] 04/09/2025 3:00 PM CHEMICAL PRODUCTION MACHINE OPERATOR Lab [facility] Cancer [address] [phone] Case Samuel MD [address] [place] [address] 484, [address] [place], [place] [address] 04/09/2025 3:30 PM CHEMICAL PRODUCTION MACHINE OPERATOR Oncology Visit [facility] Cancer [address] [phone] Case Samuel MD [address] [place] [address] 484, [address] [place], [place] 95[address] documented as of this encounter Goals Goal [...] documented as of this encounter Care Teams Speech Correction Consultant Relationship Specialty Start Date End Date Veronica Joseph MD [address] [place] [address] PCP - General Family Medicine 06/18/24 [facility] 04/03/24 Case Samuel MD [address] [facility] 484, [address] [place], [place] 388795 Assigned Pediatric Specialist Provider 05/18/24 Juhi Benson, SOFIA Specialty Bottom Brusher Hematology & Oncology 05/29/24 Olinda Vora APRN MANAGER INTRANET [address] [place] [address] [id number] Assigned Cancer Care Provider 08/16/24 Marissa Fierro, RN RN Clinical Product Navigator Primary Care - CC 10/13/24 10/16/24 Stiven Stanley LP [address] [place] [address] Psychologist PSYCHOLOGIST CLINICAL 10/25/24 Carmen Casillas, RN [facility] Resource Team Primary Care - CC 11/06/24 11/08/24 Star Galarza MD [facility] [address] [place] [address] Home Infusion Following Provider Infectious Diseases 11/07/24 Suzanne Carter, RN Home Infusion Assistant Family Teacher 11/08/24 11/16/24 Enrico Mckoy, RN [facility] Resource Team 11/14/24 11/15/24 Aliyah Hudson, RN Home Infusion Assistant Family Teacher 11/16/24 01/04/25 Juhi Smith, RN [facility] Resource Team 12/03/24 12/05/24 Enrico Mckoy RN [facility] Resource Team 12/05/24 12/06/24 [place], RN [facility] Resource Team 12/10/24 12/20/24 documented as of this encounter
--- OUTSIDE RECORDS SUMMARY | 2025-02-09 01:52 | XMS_ITS | Encounter Summary ---
Author Organization [facility] Address [address] [place] [address]. [place] [address] Care Team Providers Care Motor And Chassis Inspector Name Role Phone Mor Ramsey Unavailable Unavailable Case Samuel MD Unavailable [phone] Juhi Benson RN Unavailable Unavailable Veronica Joseph MD Primary Care Provider [phone] Olinda Vora APRN HOME SCHOOL COORDINATOR Unavailable [phone] Marissa Fierro RN Unavailable [phone] Stiven Stanley LP Unavailable Carmen Casillas RN Unavailable [phone] Star Galarza MD Unavailable [phone] Suzanne Carter RN Unavailable Unavailable Enrico Mckoy RN Unavailable UnavailAliyah frey Do, RN Unavailable Unavailable Juhi Smith RN Unavailable UnavailEnrico Cruz RN Unavailable UnavailNorth Alejandro RN Unavailable Unavailable Encounter Details Date Type Department Care Team (Late st Contact Info) Description 09/28/2024 [facility] Advice [facility] [address] [place] [address] Juhi Benson RN Social History [...] an overnight nursing home, or couch-surfing.) Yes 09/20/2024 Are you worried [...] on file Legal Sex Female 8:25 AM RECRUITING AND SELECTION CONSULTANT Gender Identity Not on file Sexual Orientation Not on file documented as of this encounter Plan of Treatment Upcoming Encounters Date Type Department Care Team (Late st Contact Info) Description 02/15/2025 10:30 AM CDT Lab [address] [address] Olinda Vora APRN [address] 292625 02/15/2025 11:00 AM CDT Oncology Visit [facility] Cancer [address] [place] [phone] Olinda Vora APRN HOME SCHOOL COORDINATOR [address] [place] [address] [id number] 04/09/2025 3:00 PM RECRUITING AND SELECTION CONSULTANT Lab [facility] Cancer [address] [phone] Case Samuel MD [address] [place] [address] 484, [address] [place], [place] [address] 04/09/2025 3:30 PM RECRUITING AND SELECTION CONSULTANT Oncology Visit [facility] Cancer [address] [phone] Case Samuel MD [address] [place] [address] 484, [address] [place], [place] [address] documented as of this encounter Goals Goal [...] documented as of this encounter Care Teams Motor And Chassis Inspector Relationship Specialty Start Date End Date Veronica Joseph MD [address] [place] [address] PCP - General Family Medicine [facility]18/[facility] 04/03/24 Case Samuel MD [address] [facility] 484, [address] [place], [place] 6[address] Assigned Pediatric Specialist Provider 05/18/24 Juhi Benson, SOFIA Specialty Gas Pit Worker Hematology & Oncology 05/29/24 Olinda Vora APRN HOME SCHOOL COORDINATOR [address] [place] [address] Assigned Cancer Care Provider 08/16/24 Marissa Fierro, RN RN Clinical Product Navigator Primary Care - CC 10/13/24 10/16/24 Stiven Stanley LP [address] [place] [address] Psychologist PSYCHOLOGIST CLINICAL 10/25/24 Carmen Casillas, RN [facility] Resource Team Primary Care - CC 11/06/24 11/08/24 Star Galarza MD [facility] [address] [place] [address] Home Infusion Following Provider Infectious Diseases 11/07/24 Suzanne Carter, RN Home Infusion Chemical Plant Manager 11/08/24 11/16/24 Enrico Mckoy, RN [facility] Resource Team 11/14/24 11/15/24 Aliyah Hudson, RN Home Infusion Chemical Plant Manager 11/16/24 01/04/25 Juhi Smith, RN [facility] Resource Team 12/03/24 12/05/24 Enrico Mckoy RN [facility] Resource Team 12/05/24 12/06/24 [place], RN [facility] Resource Team 12/10/24 12/20/24 documented as of this encounter
--- OUTSIDE RECORDS SUMMARY | 2025-02-09 01:52 | XMS_ITS | Encounter Summary ---
Author Organization [facility] Address [address] [place] [address]. [place] [address] Care Team Providers Care Reed Man Name Role Phone Roxy Mor Unavailable Unavailable Case Samuel MD Unavailable [phone] Juhi Benson RN Unavailable Unavailable Veronica Joseph MD Primary Care Provider [phone] Olinda Vora APRN HOTEL ASSISTANT MANAGER Unavailable [phone] Stiven Stanley Unavailable Star Galarza MD Unavailable [phone] Aliyah Hudson RN Unavailable Unavailable [place] RN Unavailable Unavailable Encounter Details Date Type Department Care Team (Late st Contact Info) Description 12/18/2024 Home Infusion [facility] [address] [place] [address] Vineet Casanova RPH HOME INFUSION [address] [place] [address] MSSA bacteremia (Primary Dx) Social History Tobacco Use Types [...] on file Legal Sex Female 8:25 AM DAYCARE MANAGER Gender Identity Not on file Sexual Orientation Not on file documented as of this encounter Plan of Treatment Upcoming Encounters Date Type Department Care Team (Late st Contact Info) Description 02/15/2025 10:30 AM CDT Lab [facility] Cancer [address] [phone] Olinda Vora APRN [address] [address] 02/15/2025 11:00 AM CDT Oncology Visit [address] [address] Olinda Vora APRN [address] [address] 04/09/2025 3:00 PM DAYCARE MANAGER Lab [facility] [address] [place] [phone] Case Samuel MD [address] [place] [address] 484, [address] [place], [place] [address] 04/09/2025 3:30 PM DAYCARE MANAGER Oncology Visit [facility] Cancer [facility] [address] [place] [phone] Case Samuel MD [address] [place], [place] [address], ROOM [address] [address] documented as of this encounter Goals Goal [...] as of this encounter Visit Diagnoses Diagnosis MSSA bacteremia- Primary documented in this encounter Care Teams Reed Man Relationship Specialty Start Date End Date Veronica Joseph MD [address] [place] [address] PCP - General Family Medicine 06/18/24 Mor Ramsey Medical Student 04/03/24 Case Samuel MD [address] [place] [address] [facility] 484, [address] [place] [address] Assigned Pediatric Specialist Provider 05/18/24 Juhi Benson, RN Specialty Poultry Sexer Hematology & Oncology 05/29/24 Olinda Vora APRN HOTEL ASSISTANT MANAGER [address] [place] [address] Assigned Cancer Care Provider 08/16/24 Stiven Stanley LP [address] [place] [address] Psychologist PSYCHOLOGIST CLINICAL 10/25/24 Star Galarza MD [facility] [address] [facility] [place], [place] [address] Home Infusion Following Provider Infectious Diseases 11/07/24 Aliyah Hudson, SOFIA Home Infusion Roadway Technician 11/16/24 01/04/25 [place], SOFIA I Resource Team 12/10/24 12/20/24 documented as of this encounter
--- NOTE | 2025-02-09 01:53 | ED_ITS ---
HPI - General Adult General Time Seen by Provider: 01:53 Date Seen: 02/09/25 Chief complaint: Weakness Stated complaint: Sickle Cell Crisis Time Seen by Provider: 02/09/25 01:47 Source: patient Mode of arrival: ambulatory Limitations: no limitations History of Present Illness HPI narrative: 29-year-old female who comes in today with concern of back pain and leg pain. This been going on for couple of days, she also notes that she found her mother recently. She denies chest pain or shortness of breath, no nausea vomiting. No numbness or tingling in the arms or legs. No fevers or chills. * Related Data Home Medications ?Medication ?Instructions ?Recorded ?Confirmed hydromorphone 2 mg tablet 4 mg PO Q4H PRN pain 4 04/08/24 folic acid 2 tab PO DAILY 04/04/2403/26 hydroxyurea (sickle cell) 1,000 mg PO BID 04/04/24 Previous Rx's ?Medication ?Instructions ?Recorded azithromycin 250 mg tablet 250 mg PO DAILY 4 days #4 t abs 04/08/24 cefdinir 300 mg capsule 300 mg PO BID #20 caps 04/08 cefdinir 300 mg capsule 300 mg PO BID 107 days #214 caps 04/08/24 Allergies Allergy/AdvReac Type Severity Reaction Status Date / Time cashew nut Allergy Verified 02/09/25 01:56 ketorolac (From Toradol) Allergy Verified 02/09/25 01:56 tramadol Allergy Verified 02/09/25 01:56 banana AdvReac Verified 02/09/25 01:56 latex AdvReac Verified 02/09/25 01:56 [facility] Medical History Sickle cell pain crisis ?D57.00 - Hb-SS disease with crisis, unspecified (ICD-10) Sickle cell anemia ?D57.1 - Sickle-cell disease without crisis (ICD-10) Social History Smoking Status: Never smoker Do you use any of these nicotine containing products: None How often do you have a drink containing alcohol: never AUDIT-C Alcohol total score: 0 Non-prescribed substance use: opiods/painkillers service: No Exam Narrative: Exam Narrative: General: Well-developed and well-nourished, no acute distress Head: Atraumatic and normocephalic Eyes: Pupils are equal reactive, extraocular motions intact, conjunctiva clear ENT: External nose and ears are normal, posterior pharynx without erythema or exudate Neck: No midline cervical tenderness, full spontaneous range of motion the neck, trachea midline, no adenopathy Heart: Regular rate and rhythm no murmurs or thrills Lungs: Clear to auscultation bilaterally without wheezes or crackles Abdomen: Soft, nontender, nondistended with active bowel sounds Musculoskeletal: No tenderness, deformity, or edema Neurologic: Awake, alert, and oriented x3, no gross focal neurologic deficits, cranial nerves intact as tested Psych: Mood and affect are appropriate Skin: No rashes Course Course ED Course: I reviewed patient's most recent care plan from January 30 with Monico, recommendation for acute pain is for hydromorphone 3 mg oral, Robaxin 1000mg p.r.n. in Zofran 8 mg p.o. p.r.n.. Baseline hemoglobin is 8, patient is anticoagulated on apixaban, also is on hydroxyurea. Patient presents today with back pain and leg pain that she attributes to her sickle cell. She denies chest pain, shortness of breath, nausea, vomiting. She has no fevers or chills, on exam she has no midline thoracic or lumbar tenderness, strength and sensation intact, no evidence for spinal epidural abscess or diskitis. We discussed her new care plan, she is requesting IM today. She will be given Dilaudid 1 mg IM as well as Flexeril and is stable for discharge. Discharge Plan Discharge Clinical Impression: Sickle cell disease, Chronic pain Patient Disposition: Home, Self-Care Condition: Stable Instructions: Chronic Pain (ED), Sickle Cell Disease (DC) Additional Instructions: Continue your usual pain medications and follow up with Hematology as needed Activity Level: Activity as Tolerated Discharge Diet: Regular Prescriptions: No Action cefdinir 300 mg capsule 300 mg PO BID 107 Days Qty: 214 0RF azithromycin 250 mg tablet 250 mg PO DAILY 4 Days Qty: 4 0RF Rx Instructions: first dose was given in ER 04/08/24. start on day 2 of therapy cefdinir 300 mg capsule 300 mg PO BID Qty: 20 0RF hydromorphone 2 mg tablet 4 mg PO Q4H PRN (Reason: pain) hydroxyurea (sickle cell) 1,000 mg PO BID folic acid 2 tab PO DAILY Rx Instructions: 2mg Follow Up/Referrals: Provider,Not a Local [Primary Care Provider, Family Practice] Stand Alone Forms: MyHealth Info Instructions
--- OUTSIDE RECORDS SUMMARY | 2025-02-09 01:53 | XMS_ITS | Encounter Summary ---
Author Organization [facility] Address [address] [place] [address] Care Team Providers Care Plasma Processor Name Role Phone None Reported, Pcp Primary Care Provider Unavail able Encounter Details Date Type Department Care Team (Latest Contact Info) Description 02/06/2025 Results Follow-Up [facility] [address] [place] [phone] Bushra Latham, RSherylNSheryl [address] [place] [address] Reticulocyte Profile, LD (Lactate Dehydrogenase) Social History Tobacco Use Types Packs/Day Years [...] on filedocumented in this encounter Care Teams Plasma Processor Relationship Specialty Start Date End Date None Reported, Pcp PCP - General Family Medicine 07/22/24 documented as of this encounter
--- OUTSIDE RECORDS SUMMARY | 2025-02-09 01:53 | XMS_ITS | Encounter Summary ---
Author Organization [facility] Address [address] [place] [address]. [place] [address] Care Team Providers Care Underground Roof Bolter Name Role Phone RoxyElvira lynnc Unavailable Unavailable Case Samuel MD Unavailable [phone] Juhi Benson RN Unavailable Unavailable Veronica Joseph MD Primary Care Provider [phone] Olinda Vora APRN WASHING MACHINE OPERATOR Unavailable [phone] Stiven Stanley LP Unavailable Star Galarza MD Unavailable [phone] Encounter Details Date Type Department Care Team (Late st Contact Info) Description 01/05/2025 Results Follow-Up [facility] Services - General Medicine & Pediatrics [address] [place] [address] Carmen Dominguez PA [address] [place] [address] Social History Tobacco Use Types Packs/Day [...] file Legal Sex Female 8:25 AM MEDICAL COLLECTOR Gender Identity Not on file Sexual Orientation Not on file documented as of this encounter Plan of Treatment Upcoming Encounters Date Type Department Care Team (Late st Contact Info) Description 02/15/2025 10:30 AM CDT Lab [facility] Cancer [address] [address] Olinda Vora APRN WASHING MACHINE OPERATOR [address] [place] [address]59[address] 02/15/2025 11:00 AM CDT Oncology Visit [facility] Cancer [address] [phone] Olinda Vora APRN WASHING MACHINE OPERATOR [address] [place] [address] [id number] 04/09/2025 3:00 PM MEDICAL COLLECTOR Lab [facility] Cancer [facility] [address] [place] [address] Case Samuel MD [address] [place] [address] 484, [address] [place], [place] [address] 04/09/2025 3:30 PM MEDICAL COLLECTOR Oncology Visit [facility] Cancer [facility] [address] [place] [address] Case Samuel MD [address] [facility] 484, [address] [place], [place] [address] documented as of this encounter Goals Goal [...] on filedocumented in this encounter Care Teams Underground Roof Bolter Relationship Specialty Start Date End Date Veronica Joseph MD [address] [place] [address] PCP - General Family Medicine 06/18/24 Mor Ramsey Medical Student 04/03/24 Case Samuel MD [address] [place] [address] 484, [address] [place] [address] Assigned Pediatric Specialist Provider 05/18/24 Juhi Benson, RN Specialty Solar Sales Specialist Hematology & Oncology 05/29/24 Olnida Vora APRN WASHING MACHINE OPERATOR [address] [place] [address] Assigned Cancer Care Provider 08/16/24 Stiven Stanley LP [address] [facility] [place] [address] Psychologist PSYCHOLOGIST CLINICAL 10/25/24 Star Galarza MD [facility] [place] [address] Home Infusion Following Provider Infectious Diseases 11/07/24 documented as of this encounter
--- OUTSIDE RECORDS SUMMARY | 2025-02-09 01:53 | XMS_ITS | Encounter Summary ---
Author Organization [facility] Address [address] [place] [address]. [place] [address] Care Team Providers Care Orthotics Assistant Name Role Phone Roxy Mor Unavailable Unavailable Case Samuel MD Unavailable [phone] Juhi Benson RN Unavailable Unavailable Veronica Joseph MD Primary Care Provider [phone] Olinda Vora APRN CELL REPAIRER Unavailable [phone] Stiven Stanley LP Unavailable Star Galarza MD Unavailable [phone] Encounter Details Date Type Department Care Team (Latest Contact Info) Description 01/08/2025 Travel Social History Tobacco Use Types Packs/Day [...] file Legal Sex Female 8:25 AM SLIP SEAT COVERER Gender Identity Not on file Sexual Orientation Not on file documented as of this encounter Plan of Treatment Upcoming Encounters Date Type Department Care Team (Late st Contact Info) Description 02/15/2025 10:30 AM CDT Lab [facility] Cancer [address] [address] Olinda Vora APRN CELL REPAIRER [address] [place] [id number] 02/15/2025 11:00 AM CDT Oncology Visit [facility] Cancer [address] [phone] Olinda Vora APRN CELL REPAIRER [address] [place] [address] 04/09/2025 3:00 PM SLIP SEAT COVERER Lab [facility] Cancer [address] [address] Case Samuel MD [address] [place] [address] 484, [address] [place], [place] [phone] 04/09/2025 3:30 PM SLIP SEAT COVERER Oncology Visit [facility] [address] [place] [address] Case Samuel MD [address] [facility] 484, [address] [place], [place] [address] documented as of this encounter Goals Goal [...] on filedocumented in this encounter Care Teams Orthotics Assistant Relationship Specialty Start Date End Date Veronica Joseph MD [address] [place] [address] PCP - General Family Medicine 06/18/24 Mor Ramsey Medical Student 04/03/24 Case Samuel MD [address] [place] [address] 484, [address] [place], [place] [address] Assigned Pediatric Specialist Provider 05/18/24 Juhi Benson, RN Specialty Database Marketing Specialist Hematology & Oncology 05/29/24 Olinda Vora APRN CELL REPAIRER [address] [place] [address] Assigned Cancer Care Provider 08/16/24 Stiven Stanley LP [address] [facility] [place] [address] Psychologist PSYCHOLOGIST CLINICAL 10/25/24 Star Galarza MD [facility] [address] [facility] [address] [place] [address] Home Infusion Following Provider Infectious Diseases 11/07/24 documented as of this encounter
--- OUTSIDE RECORDS SUMMARY | 2025-02-09 01:53 | XMS_ITS | Encounter Summary ---
Author Organization [facility] Address [address] [place] [address] Care Team Providers Care Clinical Project Manager Name Role Phone Mor Ramsey Unavailable Unavailable Case Samuel MD Unavailable [phone] Juhi Benson RN Unavailable Unavailable Veronica Joseph MD Primary Care Provider [phone] Olinda Vora APRN GEOMORPHOLOGIST Unavailable [phone] Marissa Fierro RN Unavailable [phone] Stiven Stanley LP Unavailable Carmen Casillas RN Unavailable [phone] Star Galarza MD Unavailable [phone] Suzanne Carter RN Unavailable Unavailable Enrico Mckoy RN Unavailable UnavailAliyah frey Do, RN Unavailable Unavailable Juhi Smith RN Unavailable UnavailEnrico Cruz RN Unavailable UnavailNorth Alejandro RN Unavailable Unavailable Reason for Visit * Reason Onset Date Comments Medication Request 09/16/2024 Encounter Details Date Type Department Care Team (Late st Contact Info) Description 09/16/[address] [place] [address] Veronica Joseph MD [address] [place] [address] Medication Request Social History Tobacco Use Types Packs/Day [...] in an overnight mcc, or couch-surfing.) Yes 09/20/2024 Are you worried [...] on file Legal Sex Female 8:25 AM CADD DRAFTER Gender Identity Not on file Sexual Orientation Not on file documented as of this encounter Miscellaneous Notes * Telephone Encounter - Babita Osborn - 09/16/2024 11:18 AM CDT Medication Question or Refill Contacts Contact Date/Time Type Contact Phone/Fax 09/16/2024 11:18 AM CDT Phone (Incoming) Gianna Hernández (Self) [phone] () What medication are you calling about (include dose and sig)?: hydromorphone (DILAUDID) injection 2mg [ FLUoxetine (PROZAC) 20 MG capsule Preferred Pharmacy: [facility] - [place], [place] - [address] [facility] [address] [facility] [address] Controlled Substance Agreement on file: CSA -- Patient Level: CSA: None found at the patient level. Who prescribed the medication?: pcp Do you need a refill? No When did you use the medication last? 09/15/2024 Patient offered an appointment? No Do you have any questions or concerns? No Could we send this information to you in [facility] or would you prefer to receive a phone call?: Patient would prefer a phone call Okay to leave a detailed message?: Yes at Home number on file [phone] (home) documented in this encounter Plan of Treatment Upcoming Encounters Date Type Department Care Team (Late st Contact Info) Description 02/15/2025 10:30 AM CDT Lab [facility] [address] [phone] Olinda Vora APRN GEOMORPHOLOGIST [address] [place] [address] 02/15/2025 11:00 AM CDT Oncology Visit [facility] [address] [phone] Olinda Vora APRN GEOMORPHOLOGIST [address] [place] [address] 04/09/2025 3:00 PM CADD DRAFTER Lab [facility] [address] [address] Case Samuel MD [address] [place] [address], [address] [place] [address] 04/09/2025 3:30 PM CADD DRAFTER Oncology Visit [facility] [address] [place] [phone] Case Samuel MD [address] [facility] 484, [address] [place] [address] documented as of this encounter Goals Goal [...] Last Indicated Resolved Time Rule Out COVID-19 09/18/2024 09/18/2024 09/18/2024 1:15 AM CDT Rule Out COVID-19 10/14/2024 10/14/2024 10/14/2024 3:56 PM CDT Human Metapneumovirus 10/14/2024 10/14/20242024 7:40 PM CDT Rule Out COVID-19 11/02/2024 11/02/2024 11/03/2024 12:23 AM CDT documented as of this encounter Care Teams Clinical Project Manager Relationship Specialty Start Date End Date Veronica Joseph MD [address] [place] [address] PCP - General Family Medicine 06/18/24 Mor Ramsey Medical Student 04/03/24 Case Samuel MD [address] [facility] [address], [address] [place] [address] Assigned Pediatric Specialist Provider 05/18/24 Juhi Benson, RN Specialty Pastry Decorator Hematology & Oncology 05/29/24 Olinda Vora, HUMAN FACTORS SPECIALIST GEOMORPHOLOGIST [address] [place] [address] Assigned Cancer Care Provider 08/16/24 Marissa Fierro RN RN Clinical Product Navigator Primary Care - CC 10/13/24 10/16/24 Stiven Stanley LP [address] [place] [address] Psychologist PSYCHOLOGIST CLINICAL 10/25/24 Carmen Casillas, SOFIA I Resource Team Primary Care - CC 11/06/24 11/08/24 Star Galarza MD [facility] [address] [facility] [address] [place] [address] Home Infusion Following Provider Infectious Diseases 11/07/24 Suzanne Carter, SOFIA Home Infusion Air Cargo Agent 11/08/24 11/16/24 Enrico Mckoy, RN I Resource Team 11/14/24 11/15/24 Aliyah Hudson RN Home Infusion Air Cargo Agent 11/16/24 01/04/25 Juhi Smith, SOFIA I Resource Team 12/03/24 12/05/24 Enrico Mckoy, RN [facility] Resource Team 12/05/24 12/06/24 [place], RN [facility] Resource Team 12/10/24 12/20/24 documented as of this encounter
--- OUTSIDE RECORDS SUMMARY | 2025-02-09 01:53 | XMS_ITS | Encounter Summary ---
Author Organization [facility] Address [address] [place] [address]. [place] [address] Care Team Providers Care Cake Press Operator Name Role Phone Mor Ramsey Unavailable Unavailable Case Samuel MD Unavailable [phone] Juhi Benson RN Unavailable Unavailable Veronica Joseph MD Primary Care Provider [phone] Olinda Vora APRN DISABILITY INSURANCE HEARING OFFICER Unavailable [phone] Stiven Stanley Unavailable Carmen Casillas RN Unavailable [phone] Star Galarza MD Unavailable [phone] Suzanne Carter RN Unavailable Unavailable Enrico Mckoy RN Unavailable UnavailAliyah frey Do RN Unavailable Unavailable Juhi Smith RN Unavailable UnavailEnrico Cruz RN Unavailable UnavailNorth Alejandro RN Unavailable Unavailable Encounter Details Date Type Department Care Team (Late st Contact Info) Description 11/02/2024 [facility] [place] [facility] [address] [place] [address] Case Samuel MD [address] [facility] 484, [address] [place] [address] Social History Tobacco Use Types Packs/Day Years Used Date Smoking Tobacco: Never Smokeless Tobacco: Never Alcohol Use Standard Drinks/Week Comments Not Currently 0 (1 standard drink = 0.6 oz pur e alcohol) Food Insecurity Answer Date Recorded Within the past 12 months, d id you worry that your food would run out before you got money to buy more? No 11/03/2024 Within the past 12 months, d id the food you bought just not last and you didn t have money to get more? No 11/03/2024 Housing Stability Answer Date Recorded Do you have housing? (Sae montes is defined as stable permanent housing and does not include staying outside in a car, in a tent, in an abandoned building, in an overnight fci, or couch-surfing.) Yes 11/03/2024 Are you worried about losing your housing? No 11/03/2024 Financial Resource Strain Answer Date R ecorded Within the past 12 months, h ave you or your family members you live with been unable to get utilities (heat, electricity) when it was really needed? No 11/03/2024 Transportation Needs Answer Date Record ed Within the past 12 months, h as lack of transportation kept you from medical appointments, getting your medicines, non-medical meetings or appointments, work, or from getting things that you need? No 11/03/2024 Interpersonal Safety Answer Date Record ed Do you feel physically and e motionally safe where you currently live? Yes 11/03/2024 Within the past 12 months, h ave you been hit, slapped, kicked or otherwise physically hurt by someone? No 11/03/2024 Within the past 12 months, h ave you been humiliated or emotionally abused in other ways by your partner or ex-partner? No 11/03/2024 Comments No Sex and Gender Information Value Date Recorded Sex Assigned at Not on file Legal Sex Female 8:25 AM CLASSROOM COORDINATOR Gender Identity Not on file Sexual Orientation Not on file documented as of this encounter Plan of Treatment Upcoming Encounters Date Type Department Care Team (Late st Contact Info) Description 02/15/2025 10:30 AM CDT [facility] [address] [place] [address] Olinda Vora APRN [facility] [place] [address] 02/15/2025 11:00 AM CDT Oncology Visit [facility] [address] [phone] Olinda Vora APRN DISABILITY INSURANCE HEARING OFFICER [address] [place] [address] 04/09/2025 3:00 PM CLASSROOM COORDINATOR Lab [facility] [address] [phone] Case Samuel MD [address] [place] [address], [address] [place], [place] [id number] 04/09/2025 3:30 PM CLASSROOM COORDINATOR Oncology Visit [facility] [address] [phone] Case Samuel MD [address] [place] [address] 484, [address] [place], [place] [address] documented as of this encounter Goals Goal [...] documented as of this encounter Care Teams Cake Press Operator Relationship Specialty Start Date End Date Veronica Joseph MD [address] [place] [address] PCP - General Family Medicine 06/18/24 Roxy [facility] Medical Student 04/03/24 Case Samuel MD [address] [facility] 484, [address] [place] [address] Assigned Pediatric Specialist Provider 05/18/24 Juhi Benson, SOFIA Specialty Print Developer Hematology & Oncology 05/29/24 Olinda Vora APRN DISABILITY INSURANCE HEARING OFFICER [address] [place], [place] [address] Assigned Cancer Care Provider 08/16/24 Stiven Stanley LP [address] [place] [address] Psychologist PSYCHOLOGIST CLINICAL 10/25/24 Carmen Casillas, SOFIA [facility] Resource Team Primary Care - CC 11/06/24 11/08/24 Star Galarza MD [facility] [address] [place] [address] Home Infusion Following Provider Infectious Diseases 11/07/24 Suzanne Carter, SOFIA Home Infusion Electrician'S Helper 11/08/24 11/16/24 Enrico Mckoy RN [facility] Resource Team 11/14/24 11/15/24 Aliyah Hudson RN Home Infusion Electrician'S Helper 11/16/24 01/04/25 Juhi Smith, SOFIA I Resource Team 12/03/24 12/05/24 Enrico Mckoy, RN [facility] Resource Team 12/05/24 12/06/24 [place], RN [facility] Resource Team 12/10/24 12/20/24 documented as of this encounter
--- OUTSIDE RECORDS SUMMARY | 2025-02-09 01:53 | XMS_ITS | Encounter Summary ---
Author Organization [employer] Address [address] [place] [address]. [place] [address] Care Team Providers Care Plate Stacker Name Role Phone Roxy Mor Unavailable Unavailable Case Samuel MD Unavailable [phone] Juhi Benson RN Unavailable Unavailable Veronica Joseph MD Primary Care Provider [phone] Olinda Vora APRN AUTOMOTIVE VEHICLE INSPECTOR Unavailable [phone] Stiven Stanley LP Unavailable Star Galarza MD Unavailable [phone] Encounter Details Date Type Department Care Team (Latest Contact Info) Description 01/05/2025 Travel Social History Tobacco Use Types Packs/Day [...] on file Legal Sex Female 8:25 AM CROTCH BREAKER Gender Identity Not on file Sexual Orientation Not on file documented as of this encounter Plan of Treatment Upcoming Encounters Date Type Department Care Team (Late st Contact Info) Description 02/15/2025 10:[address] [facility] [address] [phone] Olinda Vora APRN AUTOMOTIVE VEHICLE INSPECTOR [address] [place] [id number] 02/15/2025 11:00 AM CDT Oncology Visit [facility] [address] [phone] Olinda Vora APRN AUTOMOTIVE VEHICLE INSPECTOR [address] [place] [address] 04/09/2025 3:00 PM CROTCH BREAKER Lab [facility] [address] [phone] Case Samuel MD [address] [place] [address] 484, [address] [place], [place] [id number] 04/09/2025 3:30 PM CROTCH BREAKER Oncology Visit [facility] [address] [place] [address] Case Samuel MD 420 [facility] 484, [address] [place], [place] [address] documented as of this encounter Goals Goal [...] on filedocumented in this encounter Care Teams Plate Stacker Relationship Specialty Start Date End Date Veronica Joseph MD [address] [place] [address] PCP - General Family Medicine 06/18/24 Mor Ramsey Medical Student 04/03/24 Case Samuel MD [address] [place] [address] 484, [address] [place], [place] [address] Assigned Pediatric Specialist Provider 05/18/24 Juhi Benson, RN Specialty Order Administrator Hematology & Oncology 05/29/24 Olinda Vora APRN AUTOMOTIVE VEHICLE INSPECTOR [address] [place] [address] Assigned Cancer Care Provider 08/16/24 Stiven Stanley LP [address] [facility] [place] [address] Psychologist PSYCHOLOGIST CLINICAL 10/25/24 Star Galarza MD [facility] [address] [facility] [address] [place] [address] Home Infusion Following Provider Infectious Diseases 11/07/24 documented as of this encounter
--- OUTSIDE RECORDS SUMMARY | 2025-02-09 01:54 | XMS_ITS | Clinical Summary ---
Author Organization [facility] [facility] Address [address] [place] [address] Care Team Providers Care Voice Teacher Name Role Phone Veronica Joseph MD Primary Care Provider [phone] Allergies Active Allergy Reactions Criticality Noted Date Comments Acetaminophen Hives Unknown 05/16/2019 Banana Anaphylaxis,Hives,T hroat Swelling/Closing High 06/25/2019 Blood-Group Specific Substance Other - Describe In Comment Field High 05/29/2024 Patient with a history of a hematologic condition and has a history of a clinically significant antibody against RBC antigens. A delay in compatible RBCs may occur. History of Anti-C and Nonspecific antibodies. Cashew Nut Hives Unknown 03/11/2024 Latex Hives,Rash High 09/15/2022 Morphine Hives,Other - Describe In Comment Field,Seizures High 05/22/2019 Seizure. Other [...] ickle cell pain crisis (HC) Inhale 1 [place] into affected nostril(s) each time if needed [...] for Pain. 10 Tablet 5 2:58 PM LOG RAFT WORKER 04/27/19 25 Active folic acid 1 mg tablet Take 1 tablet (1 mg) by mouth daily. 30 Tablet 5 1:41 PM LOG RAFT WORKER 05/01/19 25 Active hydroxyurea (HYDREA) 500 mg capsule Take 2 capsules (1,000 mg) by mouth 2 times daily 120 Capsule 05/01/19 25 Active multivitamin with folic acid 0.4 mg (Thera) Take 1 tablet by mouth daily. 30 Tablet 5 10:39 AM LOG RAFT WORKER 05/01/19 25 Active amoxicillin-clavul anate (AUGMENTIN) 875-125 mg tablet Take 1 tablet by mouth 2 times daily for 7 days. 14 Tablet 5 10:39 AM LOG RAFT WORKER 05/08/19 25 Active doxycycline hyclate 100 mg capsule Take 1 capsule (100 mg) by mouth 2 times daily for 7 days. 14 Capsule 5 10:39 AM LOG RAFT WORKER 05/08/19 25 Active HYDROmorphone 4 mg tablet Take 1 Tablet (4 mg) by mouth every 6 hours if needed for severe pain. 30 Tablet 5 1:04 PM LOG RAFT WORKER 05/09/19 25 Active FLUoxetine (PROZAC) 10 mg capsule Take 1 capsule (10 mg) by mouth daily. 40 Capsule 1 5 3:26 PM LOG RAFT WORKER 05/29/19 25 Active naloxone (NARCAN) 4 mg/actuation nasal spray [place] 1 spray (4 mg) into one nostril [...] 5 5:36 PM CDT 07/18/19 25 Active FLUoxetine 20 mg capsule Take 1 capsule (20 mg) by mouth daily. 30 Capsule 1 5 9:26 AM CDT 08/30/19 25 Active HYDROmorphone 2 mg tablet Take 1 to 2 tablets (2-4 mg) by mouth every 6 hours as needed for severe pain. 20 Tablet 5 5:10 PM CDT 09/26/19 25 Active HYDROmorphone 2 mg tablet Take 1 tablet (2 mg) by mouth every 6 hours as needed for severe pain. 1 Week supply. No early refills 24 Tablet 5 4:26 PM CDT 09/30/19 25 Active HYDROmorphone 2 mg tablet Take 1 tablet (2 mg) by mouth every 6 hours as needed for severe pain. 1 Week supply. No early refills 24 Tablet 5 11:30 AM CDT 10/05/19 25 Active FLUoxetine 40 mg capsule Take 1 capsule (40 mg) by mouth daily. 30 Capsule 2 5 4:50 PM CDT 10/14/19 25 Active HYDROmorphone 2 mg tablet Take 1 tablet (2 mg) by mouth every 6 hours as needed for severe pain or breakthrough pain. 1 Week supply. No early refills 24 Tablet 5 5:43 PM CDT 12/29/19 25 Active HYDROmorphone 2 mg tablet Take 1 tablet by mouth every 6 hours if needed for severe or breakthrough pain. 24 Tablet 5 5:39 PM CDT 01/09/20 25 Active apixaban (Eliquis) 5 mg tablet Take 1 tablet (5 mg) by mouth 2 times daily. 60 Tablet 3 5 5:20 PM CDT 01/19/20 25 Active HYDROmorphone 2 mg tablet Take 1 tablet (2 mg) by mouth every 6 hours as needed for severe pain or breakthrough pain. 1 Week supply. No early refills 24 Tablet 5 4:25 PM CDT 02/06/20 25 Active HYDROmorphone 2 mg tablet Take 1 tablet (2 mg) by mouth every 6 hours as needed for severe pain or breakthrough pain. 1 Week supply. No early refills 24 Tablet 5 1:01 PM CDT 01/17/20 25 025 Discontin ued(Reord er (E-cancel not sent)) HYDROmorphone 2 mg tablet Take 1 tablet (2 mg) by mouth every 6 hours as needed for severe pain or breakthrough pain. 1 Week supply. No early refills 24 Tablet 5 5:20 PM CDT 01/23/20 25 025 Discontin ued(Reord er (E-cancel not sent)) HYDROmorphone 2 mg tablet Take 1 tablet (2 mg) by mouth every 6 hours as needed for severe pain or breakthrough pain. 1 Week supply. No early refills 24 Tablet 5 8:55 AM CDT 01/30/20 25 025 Discontin ued(Reord er (E-cancel not [...] Encounters Date Type Department Care Team Description 02/02/2025 9:45 PM CDT - 02/02/2025 10:15 PM CDT Emergency [facility] Emergency Department [address] [place] [address] Discharge Disposition: Home Self Care 02/02/2025 Travel 01/24/2025 Patient Outreach [facility] Care Management - Advanced Care Team [facility] [place] [address] Luna To LSW Complex Care Management (CCM Engagement Outreach) 01/14/2025 11:27 PM CDT - 01/15/2025 2:38 AM CDT Emergency [facility] [address] [place] [address] Moy Jose MD Sickle cell pain crisis (HC) (Primary Dx) Discharge Disposition: Home Self Care 01/14/2025 Travel 11/25/2024 2:50 PM CDT - 11/25/2024 5:08 PM CDT Emergency [address] [address] Mor Ramsey MD Sickle cell pain crisis (HC) (Primary Dx) Discharge Disposition: Home Self Care 11/24/2024 6:33 PM CDT - 11/24/2024 9:44 PM CDT Emergency [address] [address] Aixa Castro PA Sickle cell pain crisis (HC) (Primary Dx) Discharge Disposition: Home Self Care 11/24/2024 Travel 11/08/2024 8:08 PM CDT - 11/09/2024 12:03 AM CDT Emergency [address] [address] Korey Aviles MD Fever, unspecified fever cause (Primary Dx); Sickle cell disease with crisis (HC) Discharge Disposition: Health Care Facility Not On List from Last 3 Months Immunizations Immunization Administration [...] or yelled at (see row info)? No 01/14/2025 Interpersonal Safety Abuse 12 - 18 Not on file 01/14/2025 Interpersonal Safety Ambulatory Vulnerability No t on file 01/14/2025 Utilities Answer Date Recorded Do you have trouble paying f or utilities (for example, heat, electricity, water, phone)? 1 03/28/2024 Comments No Sex and Gender Information Value Date Recorded Sex Assigned at Not on file Legal Sex Female 8:18 PM LOG RAFT WORKER Gender Identity Not on file Sexual Orientation Not on file Obstetrics History Last Filed Vital Signs Vital Sign Reading Time Taken Comments Blood Pressure 116/80 02/02/2025 9:46 PM CDT Pulse 104 02/02/2025 9:46 PM CDT Temperature 36.7 C (98.1 F) 02/02/2025 9:46 PM CDT Respiratory Rate 18 02/02/2025 9:46 PM CDT Oxygen Saturation 99% 02/02/2025 9:46 PM CDT Inhaled Oxygen Concentration - - Weight 48.2 kg (106 lb 4.8 oz) 02/02/2025 9:46 P M CDT Height 154.9 cm (5' 1) 02/02/2025 9:46 PM CDT Body Mass Index 20.09 02/02/2025 9:46 PM CDT Plan of Treatment Health Maintenance Due Date Last Done Comments HIV for age 15-65 2009 Hepatitis C screening for ag e 18-79 2012 Pneumococcal series for age 6-49 (1 of 2 - PCV) 2013 Tetanus booster 01/18/2017 01/18/2007 COVID-19 vaccine series ( - season) 2024 03/26/2023, 05/21/2021, 02/27/2021, Additional history exists Influenza Vaccine (#1) 2024 3, 01/15/2023, 03/14/2020, Additional history exists Pap test for age 21-65 01/06/2025 2 (Verified in Care Everywhere or Patient Record) BMI (ht and wt on same day) for age 18+ 04/11/2025 04/11/2024 Depression screening for age 12+ 04/11/2025 04/11/20 24 RSV vaccine for adults or (1 - 1-dose 75+ series) 2069 Hepatitis B series for 19+ Completed 03/28, 06/07/1995, 1994, Additional history exists HPV series for age 9-45 Completed 01/25/20 09, 10/03/2008, 03/28/2008, Additional history exists Procedures Procedure Name Priority Date/Time Associated Diagnosis Comments CBC WITH AUTO DIFFERENTIAL STAT 11/24/2024 7:27 PM CDT CBC WITH AUTO DIFFERENTIAL STAT 11/24/2024 7:27 PM CDT from Last 3 Months Results * (ABNORMAL) CBC WITH AUTO DIFFERENTIAL (11/24/2024 7:27 PM CDT) WHITE BLOOD COUNT 10.4 4.5 - 11.0 thou/cu mm 11/24/2024 7:34 PM CDT [facility] RED BLOOD COUNT 2.69(L) 4.00 - 5.20 mil/cu mm 11/24/2024 7:34 PM CDT [facility] HEMOGLOBIN 8.5(L) 12.0 - 16.0 g/dL 11/24/2024 7:34 PM CDT [facility] HEMATOCRIT 24.4(L) 33.0 - 51.0 % 11/24/2024 7:34 PM CDT [facility] MCV 91 80 - 100 fL 11/24/2024 7:34 PM CDT [facility] MCH 31.6 26.0 - 34.0 pg 11/24/2024 7:34 PM CDT [facility] MCHC 34.8 32.0 - 36.0 g/dL 11/24/2024 7:34 PM CDT [facility] RDW 18.6(H) 11.5 - 15.5 % 11/24/2024 7:34 PM CDT [facility] PLATELET COUNT 442(H) 140 - 440 thou/cu mm 11/24/2024 7:34 PM CDT [facility] MPV 9.8 6.5 - 11.0 fL 11/24/2024 7:34 PM CDT [facility] NRBC 0.3 % 11/24/2024 7:34 PM CDT [facility] ABS NRBC 0.0 thou /cu mm 11/24/2024 7:34 PM CDT [facility] % NEUT 43.6 % 11/24/2024 7:34 PM CDT [facility] % LYMPH 42.2 % 11/24/2024 7:34 PM CDT [facility] % MONO 11.6 % 11/24/2024 7:34 PM CDT [facility] % EOS 1.2 % 11/24/2024 7:34 PM CDT [facility] % BASO 1.1 % 11/24/2024 7:34 PM CDT [facility] % IMMATURE GRAN (METAS,MYELOS,[place] OS) 0.3 % 11/24/2024 7:34 PM CDT [facility] ABSOLUTE NEUTROPHILS 4.6 1.7 - 7.0 thou/cu mm 11/24/2024 7:34 PM CDT [facility] ABSOLUTE LYMPHOCYTES 4.4(H) 0.9 - 2.9 thou/cu mm 11/24/2024 7:34 PM CDT [facility] ABSOLUTE MONOCYTES 1.2(H) <0.9 thou/cu mm 11/24/2024 7:34 PM CDT [facility] ABSOLUTE EOSINOPHILS 0.1 <0.5 thou/cu mm 11/24/2024 7:34 PM CDT [facility] ABSOLUTE BASOPHILS 0.1 <0.3 thou/cu mm 11/24/2024 7:34 PM CDT [facility] ABSOLUTE IMMATURE GRANULOCYTES(MET ,MYELOS,PROS) 0.0 <0.3 thou/cu mm 11/24/2024 7:34 PM CDT [facility] Blood BLOOD SPECIMEN / Unknown Line/Port / Unknown 11/24/2024 7:27 PM CDT 11/24/2024 7:31 PM CDT [facility] Final Result [facility] [address] [place] [address], [place] [phone] from Last 3 Months Insurance [place] [facility] [place] [id number] [facility] Advance Directives * Full Code (Latest Code Status on File) Date Activated Date Inactivated Comments 03/28/2024 10:36 PM 03/30/2024 11:39 AM Question Answer Comments Code Status Discussion: Reviewed Preferences * Full Code Date Activated Date Inactivated Comments 03/16/2024 1:29 AM 03/18/2024 1:58 PM Question Answer Comments Code Status Discussion: Reviewed Preferences Care Teams Voice Teacher Relationship Specialty Start Date End Date Veronica Joseph MD [address] [place] [address] PCP - General Family Practice 03/29/24
--- OUTSIDE RECORDS SUMMARY | 2025-02-09 01:54 | XMS_ITS | Clinical Summary ---
Author Organization [facility] Address [address] [place] [id number] Care Team Providers Care Executive Chef Name Role Phone Roxy Mor Unavailable Unavailable Case Samuel MD Unavailable [phone] Juhi Benson RN Unavailable Unavailable Veronica Joseph MD Primary Care Provider [phone] Olinda Vora APRN SHELLACKER Unavailable [phone] HusamndsStiven Unavailable Star Galarza MD Unavailable [phone] Allergies Active Allergy Reactions Criticality Noted Date Comments Banana Anaphylaxis,Hives,S welling High 06/25/2019 Other Reaction(s): [...] daily. 30 tablet 11 05/01/19 25 Active naloxone (NARCAN) 4 MG/0.1ML nasal spray Chester 1 spray (4 mg) into one nostril alternating nostrils as needed for opioid reversal (for opiate overdose if not breathing and unconscious. have your family member watch video on how to use/read information sheet). every 2-3 minutes until assistance arrives 2 each 06/06/19 25 Active diphenhydrAMINE (BENADRYL) 25 MG tablet Take 1-2 tablets by mouth every 6 hours as needed for itching. Active EPINEPHrine (ANY BX GENERIC EQUIV) 0.3 MG/0.3ML injection 2-pack Inject 0.3 mg into the muscle as needed for anaphylaxis. May repeat one time in 5-15 minutes if response to initial dose is inadequate. Active ondansetron (ZOFRAN ODT) 4 MG ODT tabIndications:Ga llstones Take 1 tablet (4 mg) by mouth every 6 hours as needed for nausea or vomiting. 20 tablet 09/11/19 25 Active senna-docusate (SENOKOT-S/MERRILL LACE) 8.6-50 MG tabletIndications :Sickle cell pain crisis (H) Take 2 tablets by mouth 2 times daily as needed for constipation. 60 tablet 09/11/19 25 Active polyethylene glycol (MIRALAX) 17 GM/Dose powderIndications :Sickle cell pain crisis (H) Take 17 g by mouth 2 times daily as needed for constipation. 510 g 3 09/11/19 25 Active FLUoxetine (PROZAC) 40 MG capsuleIndication s:Severe episode of recurrent major depressive disorder, without psychotic features (H) Take 1 capsule (40 mg) by mouth daily. 30 capsule 2 10/14/19 25 Active apixaban ANTICOAGULANT (ELIQUIS) 5 MG tabletIndications :Acute pulmonary embolism without acute cor pulmonale, unspecified pulmonary embolism type (H) Take 1 tablet (5 mg) by mouth 2 times daily. 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 1 Week supply. No early refills 24 tablet 02/06/20 25 Active apixaban ANTICOAGULANT (ELIQUIS) 5 MG tabletIndications :Acute pulmonary embolism without acute cor pulmonale, unspecified pulmonary embolism type (H) Take 1 tablet (5 mg) by mouth 2 times daily. 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 1 Week supply. 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 1 Week supply. 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 1 Week supply. 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 1 Week supply. No early refills 24 tablet 01/30/20 25 025 Discontin ued(Reord er (No AVS)) [...] to mental health as of early May 2024--has not shown up DO NOT TRANSFUSE WITHOUT DISCUSSING WITH HEMATOLOGY ATTENDING (available 16/11). TRANSFUSION IS RISKY DUE TO RISK OF ALLOIMMUNIZATION AGAINST RBC ANTIGENS AND IRON OVERLOAD. INDICATIONS FOR TRANSFUSION ARE ACUTE STROKE AND ACUTE CHEST SYNDROME (hypoxia plus infiltrate, not chest pain). 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: Lizzie Genotype: SS Acute Pain Crisis Treatment: (note that Toradol is listed as an allergy) ER/Acute Care/Infusion Clinic: Hydromorphone 3 mg ORAL Robaxin 1000 mg PRN Other: Zofran 8 mg PO prn Inpatient: Opioid: Hydromorphone 3 mg ORAL Q4H scheduled--titrate within 24-48 hours to 2 mg Robaxin 1000 mg q6H PRN Other Medications: Zofran, Oral Benadryl for anxiety Supportive Care: Docusate, Senna PRN Home Pain Medications: Dilaudid 2 mg PO, Tylenol Baseline Hemoglobin: 8 g/dl Hydroxyurea use: Yes H/O blood transfusions: Yes H/O Transfusion Reactions: no Antibodies: Yes H/O Acute Chest Syndrome: Yes Last episode: late 2023 ICU/intubation: once H/O Stroke: Yes H/O VTE: Yes (PE) H/O Cholecystectomy or Splenectomy: No H/O Asthma, Pulm HTN, AVN, Leg Ulcers, Nephropathy, Retinopathy, etc: AVN (left hip), retinopathy (right), Chronic pain Problem Noted Date Diagnosed Date Sickle cell disease with crisis 01/29/2025 Chest pain on breathing 12/01/2024 MSSA bacteremia 11/11/2024 Fever 11/09/2024 Sepsis, due to unspecified o rganism, unspecified whether acute organ dysfunction present 11/03/2024 Elevated LFTs 10/23/2024 Anemia, unspecified type 09/18/2024 Right sided abdominal pain 09/07/2024 Fever, unspecified fever cause 09/07/2024 Acute pulmonary embolism wit hout acute cor pulmonale, unspecified pulmonary embolism type 06/26/2024 Acute chest pain 06/12/2024 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 History of transfusion 05/02/2024 Gallstones 05/02/2024 Avascular necrosis of bone of left hip Sickle cell pain crisis 04/08/2024 Encounters Date Type Department Care Team Description 02/02/2025 6:48 PM CDT - 02/02/2025 9:21 PM CDT Emergency [facility] Emergency Department [address] [place] [phone] Marguerite Burgess MD Acute on chronic back pain (Primary Dx) Discharge Disposition: Home or Self Care 02/02/2025 Travel 02/01/2025 7:21 PM CDT - 02/01/2025 9:45 PM CDT Emergency [facility] Emergency Department [address] [place] [phone] Payal Arriaga DO Sickle cell disease with crisis (H) (Primary Dx) Discharge Disposition: Home or Self Care 02/01/2025 Travel 01/30/2025 MyC Medical Advice [facility] [address] [place] [address] Case Samuel MD 01/30/2025 Results Follow-Up [facility] [place] [address] Svetlana Hess RN 01/29/2025 12:54 PM CDT - 01/30/2025 9:01 AM CDT Hospital Encounter [facility] Emergency Department [address] [place] [phone] Gingras, Payal M, DO Andres Jain DO Krohn, Kristina Marie, MD Sickle cell disease with crisis (H) (Primary Dx) Discharge Disposition: Home or Self Care 01/29/2025 Travel 01/29/2025 Refill [facility] [address] [phone] Tatiana Cohen, SHELLACKER Medication Refill 01/29/[address] [phone] Tatiana Cohen, SHELLACKER Refill Request 01/27/2025 11:20 AM CDT - 01/27/2025 2:03 PM CDT Emergency [facility] Emergency Department [address] [place] [address] Leonardo Schroeder MD Sickle cell disease with crisis (H) (Primary Dx) Discharge Disposition: Home or Self Care 01/27/2025 Travel 01/26/2025 6:12 PM CDT - 01/26/2025 9:14 PM CDT Emergency [facility] Emergency Department [address] [place] [address] Abdelrahman Goddard MD Sickle cell pain crisis (H) (Primary Dx) Discharge Disposition: Home or Self Care 01/26/2025 Travel 01/25/2025 7:17 PM CDT - 01/25/2025 10:32 PM CDT Emergency [facility] Emergency Department [address] [place] [address] Marguerite Burgess MD Sickle cell pain crisis (H) (Primary Dx) Discharge Disposition: Home or Self Care 01/25/2025 Travel 01/24/2025 8:41 PM CDT - 01/25/2025 12:10 AM CDT Emergency [facility] Emergency Department [address] [place] [address] Marguerite Burgess MD Sickle cell pain crisis (H) (Primary Dx) Discharge Disposition: Home or Self Care 01/24/2025 Travel 01/23/2025 9:25 PM CDT - 01/24/2025 1:04 AM CDT Emergency [facility] Emergency Department [address] [place] [address] Leonardo Schroeder MD Sickle cell disease with crisis (H) (Primary Dx) Discharge Disposition: Home or Self Care 01/23/2025 Travel 01/22/2025 Refill [facility] [address] [phone] Tatiana Cohen CNP Refill Request 01/22/2025 Refill [facility] [address] [phone] Roberta Summers RN Refill Request; errouneous encounter 01/21/2025 12:29 PM CDT - 01/21/2025 4:00 PM CDT Emergency [facility] Emergency Department [address] [place] [address] Shauna Calle DO TenBrink, William, MD Sickle cell pain crisis (H) (Primary Dx) Discharge Disposition: Home or Self Care 01/21/2025 Travel 01/20/2025 12:06 PM CDT - 01/20/2025 2:43 PM CDT Emergency [facility] Emergency Department [address] [place] [address] Shauna Calle DO Sickle cell pain crisis (H) (Primary Dx) Discharge Disposition: Home or Self Care 01/20/2025 Travel 01/19/2025 5:43 PM CDT - 01/19/2025 8:36 PM CDT Emergency [facility] Emergency Department [address] [place] [address] Marguerite Burgess MD Sickle cell pain crisis (H) (Primary Dx) Discharge Disposition: Home or Self Care 01/19/2025 Travel 01/18/2025 7:08 PM CDT - 01/18/2025 9:58 PM CDT Emergency [facility] Emergency Department [address] [place] [address] Manan Brand MD Sickle cell pain crisis (H) (Primary Dx) Discharge Disposition: Home or Self Care 01/18/2025 9:00 AM CDT Oncology Visit [facility] [address] [phone] Case Samuel MD Kruell, Sarah, CNP 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); Sickle cell pain crisis (H); Acute pulmonary embolism without acute cor pulmonale, unspecified pulmonary embolism type (H); Generalized anxiety disorder 01/18/2025 Travel 01/18/2025 MyC Medical Advice [facility] [address] [phone] Tatiana Cohen CNP 01/17/2025 9:42 PM CDT - 01/18/2025 12:40 AM CDT Emergency [facility] Emergency Department [address] [place] [address] Marguerite Burgess MD Sickle cell pain crisis (H) (Primary Dx) Discharge Disposition: Home or Self Care 01/17/2025 Travel 01/16/[address] [phone] Lynne Aguilar RN Refill Request 01/15/2025 8:31 PM CDT - 01/15/2025 11:27 PM CDT Emergency [facility] Emergency Department [address] [place] [address] Alex Morton MD Sickle cell pain crisis (H) (Primary Dx) Discharge Disposition: Home or Self Care 01/15/2025 Travel 01/14/2025 11:14 AM CDT - 01/14/2025 2:30 PM CDT Emergency [facility] Emergency Department [address] [place] [address] Lenin Rainey MD Sickle cell pain crisis (H) (Primary Dx) Discharge Disposition: Home or Self Care 01/13/2025 4:53 PM CDT - 01/13/2025 7:57 PM CDT Emergency [facility] Emergency Department [address] [place] [address] Alex Manriquez MD Sickle cell pain crisis (H) (Primary Dx) Discharge Disposition: Home or Self Care 01/13/2025 Travel 01/12/2025 7:34 PM CDT - 01/12/2025 11:31 PM CDT Emergency [facility] Emergency Department [address] [place] [address] Payal Arriaga DO Sickle cell pain crisis (H) (Primary Dx); Leukocytosis, unspecified type Discharge Disposition: Home or Self Care 01/12/2025 Travel 01/09/2025 6:18 PM CDT - 01/11/2025 9:19 AM CDT Hospital Encounter [facility] Emergency Department [address] [place] [address] Abdelrahman Goddard MD Balke, Jeffrey A, MD Pal, Suman, MD Thompson Westermeyer, Eliza R, MD Sickle cell pain crisis (H) (Primary Dx) Discharge Disposition: Home or Self Care 01/09/2025 Travel 01/08/2025 9:25 PM CDT - 01/09/2025 12:18 AM CDT Emergency [facility] Emergency Department [address] [place] [address] Sameer Archer MD Muradian, Michael, MD Sickle cell pain crisis (H) (Primary Dx) Discharge Disposition: Home or Self Care 01/08/2025 Travel 01/08/2025 [facility] [address] [place] [address] Case Samuel MD Refill Request 01/06/2025 8:36 PM CDT - 01/06/2025 11:12 PM CDT Emergency [facility] Emergency Department [address] [place] [address] Alex Morton MD Sickle cell pain crisis (H) (Primary Dx) Discharge Disposition: Home or Self Care 01/06/2025 Travel 01/05/2025 9:36 PM CDT - 01/06/2025 12:43 AM CDT Emergency [facility] Emergency Department [address] [place] [phone] Shauna Calle DO Erickson, Linsey Gail, MD Sickle cell pain crisis (H) (Primary Dx) Discharge Disposition: Home or Self Care 01/05/2025 Travel 01/05/2025 Results Follow-Up [facility] General Medicine & Pediatrics [address] [place] [phone] Carmen Dominguez PA 01/02/2025 8:23 AM CDT - 01/04/2025 11:40 AM CDT Hospital Encounter [facility] [address] [facility] [place] [phone] Jorge Fitzgerald MD Kuross, Erik, DO Sickle cell pain crisis (H) (Primary Dx); 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 Discharge Disposition: Home or Self Care 01/02/2025 Travel 01/01/2025 9:28 PM CDT - 01/02/2025 12:54 AM CDT Emergency [facility] Emergency Department [address] [place] [phone] Alex Morton MD Golz, Dustin Nickolas, DO Sickle cell pain crisis (H) (Primary Dx) Discharge Disposition: Home or Self Care 01/01/2025 Travel 01/01/2025 Results Follow-Up [facility] General Medicine & Pediatrics [address] [place] [phone] Carmen Dominguez PA 01/01/2025 [facility] Disease [facility] [place] [address] [place] [address] Karine Milan, SOFIA OPAT Therapy Plan (Episode resolved) 01/01/2025 Documentation Only [facility] [address] [place] [phone] Ronna Ruiz RN 12/29/2024 6:02 PM CDT - 12/31/2024 2:00 PM CDT Hospital Encounter [facility] [address] [place] [phone] Marguerite Burgess MD Olson, MD Prem Alexander Daniel, MD Sickle cell pain crisis (H) (Primary Dx); 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; Status post cholecystectomy Discharge Disposition: Left Against Medical Advice 12/29/2024 Travel 12/28/2024 Telephone [facility] [address] [place] [phone] Eden Trevizo MA 12/28/[address] [phone] Case Samuel MD Refill Request 12/27/2024 7:07 PM CDT - 12/27/2024 10:15 PM CDT Emergency [facility] Emergency Department [address] [place] [phone] Marguerite Burgess MD Sickle cell pain crisis (H) (Primary Dx) Discharge Disposition: Home or Self Care 12/27/2024 Travel 12/26/2024 1:34 PM CDT - 12/27/2024 2:06 AM CDT Emergency [facility] Emergency Department [address] [place] [phone] Emanuel Chester MD Sickle cell pain crisis (H) (Primary Dx) Discharge Disposition: Home or Self Care 12/26/2024 Telephone [facility] [address] [place] [phone] Elicia Mahan MA 12/26/2024 Telephone [facility] [address] [place] [phone] Elicia Mahan MA 12/26/2024 MyC Medical Advice [facility] [address] [phone] Monico Wilcox 12/25/2024 7:33 PM CDT - 12/25/2024 11:18 PM CDT Emergency [facility] Emergency Department [address] [place] [address] Marguerite Burgess MD Sickle cell disease with crisis (H) (Primary Dx) Discharge Disposition: Home or Self Care 12/25/2024 Travel 12/25/2024 Results Follow-Up [facility] [address] [place] [phone] Noni Jean RN 12/24/2024 10:02 PM CDT - 12/25/2024 1:32 AM CDT Emergency [facility] Emergency Department [address] [place] [address] Marguerite Burgess MD Leone, Katrina Anne, MD Sickle cell pain crisis (H) (Primary Dx) Discharge Disposition: Home or Self Care 12/24/2024 Travel 12/23/2024 3:53 PM CDT - 12/23/2024 6:58 PM CDT Emergency [facility] Emergency Department [address] [place] [address] Lenin Rainey MD Sickle cell pain crisis (H) (Primary Dx) Discharge Disposition: Home or Self Care 12/23/2024 Travel 12/22/2024 11:25 PM CDT - 12/23/2024 2:19 AM CDT Emergency [facility] Emergency Department [address] [place] [address] Keshia Schofield MD Sickle cell pain crisis (H) (Primary Dx) Discharge Disposition: Home or Self Care 12/22/2024 Travel 12/22/2024 Documentation Only [facility] [address] [place] [phone] Emmy Capone RN 12/21/2024 8:49 PM CDT - 12/22/2024 12:07 AM CDT Emergency [facility] Emergency Department [address] [place] [address] Abdelrahman Goddard MD Sickle cell pain crisis (H) (Primary Dx) Discharge Disposition: Home or Self Care 12/21/2024 Travel 12/20/2024 Telephone [facility] [address] [place] [phone] Eden Trevizo MA 12/20/2024 MyC Medical Advice [facility] [address] [place] [phone] Case Samuel MD 12/20/[address] [phone] Case Samuel MD Refill Request 12/19/2024 6:49 PM CDT - 12/19/2024 10:19 PM CDT Emergency [facility] Emergency Department [address] [place] [address] Idania Pretty MD Sickle cell disease with crisis (H) (Primary Dx) Discharge Disposition: Home or Self Care 12/19/2024 Travel 12/19/2024 Telephone [facility] [address] [place] [phone] Elicia Mahan MA 12/18/2024 6:05 PM CDT - 12/18/2024 9:23 PM CDT Emergency [facility] Emergency Department [address] [place] [address] Alex Manriquez MD Sickle cell pain crisis (H) (Primary Dx) Discharge Disposition: Home or Self Care 12/18/2024 Travel 12/18/2024 Home Infusion [facility] [address] [place] [phone] Evy Casanova, [facility] MSSA bacteremia (Primary Dx) 12/17/2024 1:15 AM CDT - 12/17/2024 4:05 AM CDT Emergency [facility] Emergency Department [address] [place] [phone] Reyna Watts MD Sickle cell pain crisis (H) (Primary Dx) Discharge Disposition: Home or Self Care 12/17/2024 Travel 12/16/2024 12:31 PM CDT - 12/16/2024 3:26 PM CDT Emergency [facility] Emergency Department [address] [place] [phone] Chapin Wagner MD Sickle cell pain crisis (H) (Primary Dx) Discharge Disposition: Home or Self Care 12/15/2024 4:28 PM CDT - 12/15/2024 7:00 PM CDT Emergency [facility] Emergency Department [address] [place] [phone] Alex Manriquez MD Carlson, Natasha Lee, MD Sickle cell pain crisis (H) (Primary Dx) Discharge Disposition: Home or Self Care 12/15/2024 Travel 12/14/2024 3:30 PM CDT Home Care Visit [facility] [address] [place] [phone] Yane Mcmanus RN 12/13/2024 Refill [facility] [address] [place] [phone] Case Samuel MD Refill Request 12/13/2024 Telephone [facility] [address] [place] [phone] Elicia Mahan MA 12/12/2024 8:50 PM CDT - 12/12/2024 11:20 PM CDT Emergency [facility] Emergency Department [address] [place] [phone] Jorge Fitzgerald MD Sickle cell pain crisis (H) (Primary Dx) Discharge Disposition: Home or Self Care 12/12/2024 Travel 12/12/2024 [facility] [address] [phone] Karine Milan, SOFIA OPAT Therapy Plan (Update for Dr. Sifuentes) 12/11/2024 8:55 PM CDT - 12/12/2024 12:47 AM CDT Emergency [facility] Emergency Department [address] [place] [phone] Emanuel Chester MD Sickle cell pain crisis (H) (Primary Dx) Discharge Disposition: Home or Self Care 12/11/2024 Travel 12/11/2024 Telephone [facility] [address] [phone] Karine Milan, SOFIA OPAT Therapy Plan (Transition of care/) 12/10/2024 Home Infusion [facility] [address] [place] [phone] North Meyers RN 12/08/2024 6:02 PM CDT - 12/10/2024 2:13 PM CDT Hospital Encounter [facility] Emergency Department [address] [place] [phone] Payal Arriaga DO Saadaeijahromi, Hannaneh, MD Sickle cell pain crisis (H) (Primary Dx); MSSA bacteremia Discharge Disposition: Home or Self Care 12/08/2024 Travel 12/07/2024 8:37 PM CDT - 12/08/2024 12:23 AM CDT Emergency [facility] Emergency Department [address] [place] [phone] Marguerite Burgess MD Sickle cell pain crisis (H) (Primary Dx); Anemia, unspecified type Discharge Disposition: Home or Self Care 12/07/2024 Travel 12/06/2024 11:10 AM CDT Home Care Visit [facility] [address] [place] [phone] Yane Mcmanus RN 12/06/2024 9:30 AM CDT Home Care Visit [facility] [address] [place] [phone] Yane Mcmanus RN 12/06/2024 Home Infusion [facility] [address] [place] [phone] Hermila De La Rosa, [facility] 12/05/2024 9:06 PM CDT - 12/05/2024 11:57 PM CDT Emergency [facility] Emergency Department [address] [place] [address] Marissa Matos MD Sickle cell pain crisis (H) (Primary Dx) Discharge Disposition: Home or Self Care 12/05/2024 Travel 12/05/2024 Home Infusion [facility] [address] [place] [phone] Enrico Mckoy RN 12/05/2024 Refill [facility] [address] [place] [phone] Tatiana Cohen CNP Medication Refill 12/05/[address] [phone] Case Samuel MD Refill Request 12/04/2024 9:47 PM CDT - 12/05/2024 12:46 AM CDT Emergency [facility] Emergency Department [address] [place] [address] Alex Manriquez MD Sickle cell pain crisis (H) (Primary Dx) Discharge Disposition: Home or Self Care 12/04/2024 Medical Correspondence [facility] Health Information Management [address] [facility] [address] [place] [address] Scan, Non-Provider 12/04/2024 Travel 12/04/2024 Telephone [facility] [place] [address] [facility] [address] [phone] Viktoriya Sifuentes MD 12/04/2024 Orders Only [facility] [address] [facility] [address] [place] [phone] Viktoriya Sifuentes MD Bacteremia (Primary Dx); History of echocardiogram 12/04/2024 Results Follow-Up [facility] - General Medicine & Pediatrics [facility] [place] [phone] Rodo Garcia PA-C 12/04/2024 Orders Only [place] [address] [facility] [address] [place] [address] Viktoriya Sifuentes MD MSSA bacteremia 12/04/2024 Telephone [facility] [place] [address] [place] [phone] Alex Galvez MD Consult 12/01/2024 5:50 PM CDT - 12/03/2024 1:32 PM CDT Hospital Encounter [facility] 5[address] Oncology [address] [place] [address] Alex Manriquez MD LaPorte, Seth A, DO Maddury, Sai Priya, MD Chest pain on breathing (Primary Dx); Sickle cell pain crisis (H); MSSA bacteremia; Sepsis, due to unspecified organism, unspecified whether acute organ dysfunction present (H) Discharge Disposition: Left Against Medical Advice 12/01/2024 Travel 12/01/2024 Orders Only [place] [address] [facility] [address] [place] [phone] Star Galarza MD MSSA bacteremia 11/30/2024 9:00 PM CDT - 11/30/2024 11:32 PM CDT Emergency [facility] Emergency Department [address] [place] [phone] Jorge Fitzgerald MD Sickle cell disease with crisis (H) (Primary Dx) Discharge Disposition: Home or Self Care 11/30/2024 Travel 11/29/2024 12:30 PM CDT Home Care Visit [facility] [address] [place] [phone] Lexi Hay RN 11/24/2024 Refill [facility] [address] [place] [phone] Kruell, Tatiana, SHELLACKER Refill Request 11/22/2024 12:45 PM CDT Home Care Visit [facility] [address] [place] [phone] Maggy Dela Cruz RN 11/21/2024 9:24 PM CDT - 11/22/2024 1:00 AM CDT Emergency [facility] Emergency Department [address] [place] [phone] Enoc Muniz MD Sickle cell pain crisis (H) (Primary Dx); Bilateral leg pain Discharge Disposition: Home or Self Care 11/21/2024 Travel 11/20/2024 8:58 PM CDT - 11/21/2024 12:01 AM CDT Emergency [facility] Emergency Department [address] [place] [phone] Reyna Watts MD Sickle cell pain crisis (H) (Primary Dx) Discharge Disposition: Home or Self Care 11/20/2024 Travel 11/19/2024 8:56 PM CDT - 11/20/2024 12:40 AM CDT Emergency [facility] Emergency Department [address] [place] [phone] Polly Naylor MD Sickle cell disease with crisis (H) (Primary Dx) Discharge Disposition: Home or Self Care 11/19/2024 Travel 11/18/2024 6:23 PM CDT - 11/18/2024 9:02 PM CDT Emergency [facility] Emergency Department [address] [place] [phone] Polly Naylor MD Sickle cell disease with crisis (H) (Primary Dx) Discharge Disposition: Home or Self Care 11/18/2024 Travel 11/17/2024 Home Infusion [facility] [address] [place] [phone] Hermila De La Rosa [facility] Sepsis, due to unspecified organism, unspecified whether acute organ dysfunction present (H) (Primary Dx); MSSA bacteremia 11/15/2024 5:21 PM CDT - 11/15/2024 8:56 PM CDT Emergency [facility] Emergency Department [address] [place] [address] Jorge Fitzgerald MD Sickle cell disease with crisis (H) (Primary Dx) Discharge Disposition: Home or Self Care 11/15/2024 11:00 AM CDT Home Care Visit [facility] [address] [place] [phone] Aliyah Hudson RN 11/15/2024 Travel 11/15/2024 Refill [facility] [address] [place] [phone] Case Samuel MD Refill Request 11/14/2024 Home Infusion [facility] [address] [place] [phone] Enrico Mckoy RN 11/10/2024 5:08 PM CDT Anesthesia Event [facility] PeriOp Services [address] [place] [phone] Lenin Huerta MD 11/10/2024 5:00 PM CDT - 11/10/2024 6:10 PM CDT Surgery [facility] [address] [place] [phone] Salvador Contreras MD REMOVAL, VASCULAR ACCESS PORT 11/09/2024 1:02 AM CDT - 11/14/2024 6:32 PM CDT Hospital Encounter [place] [address] [facility] [address] [place] [phone] Chad Singletary MD Dorn, Karen T, MD Sepsis, due to unspecified organism, unspecified whether acute organ dysfunction present (H) (Primary Dx); MSSA bacteremia; Sickle cell pain crisis (H) Discharge Disposition: Home or Self Care from Last 3 Months Immunizations Immunization Administration Dates Next Due COVID-19 MONOVALENT 12+ [...] Influenza, Split Virus, Triv alent, Pf (Fluzone\Fluarix) 01/18/2025,02/09/2012,04/13/2011 MMR (MMRII) 07/18/1998,03/08/1995 Meningococcal ACWY (Menactra ) 04/13/2011,10/10/2007,01/18/2007 Pneumococcal 20 valent Conju gate (Prevnar 20) 01/18/2025 Polio, Unspecified 07/18/1998, 5,1994,10/14 Poliovirus, inactivated (IPV) [...] on file Legal 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 Gender Identity Not on file Sexual [...] Mass Index 20.12 01/27/2025 11:19 AM CDT Plan of Treatment Upcoming Encounters Date Type Department Care Team (Late st Contact Info) Description 02/15/2025 10:30 AM CDT Lab [facility] [address] [phone] Olinda Vora APRN SHELLACKER [address] [place] [phone] 02/15/2025 11:00 AM CDT Oncology Visit [facility] [address] [phone] Olinda Vora APRN SHELLACKER [address] [place] [phone] 04/09/2025 3:00 PM REFRACTORY MIXER Lab [facility] [address] [phone] Case Samuel MD [address] [place], [place] [id number], [address] [place], [place] [phone] 04/09/2025 3:30 PM REFRACTORY MIXER Oncology Visit [facility] [address] [phone] Case Samuel MD [address] [place] [address], [address] [place], [place] [phone] Health Maintenance Due Date Last Done Comments ADVANCE CARE PLANNING 1994 ANNUAL REVIEW OF HM ORDERS 1994 DEPRESSION ACTION PLAN 1994 PHQ-9 1994 YEARLY PREVENTIVE VISIT 1997 ZOSTER VACCINE (1 of 2) 2013 MENINGITIS VACCINE (3 - Risk 2-dose series) 04/13/2016 04/13/2011, 10/10/2007, 01/18/2007 DTAP/TDAP/TD VACCINE (7 - Td or Tdap) 01/18/2017 01/18/2007, 11/20/1999, 07/18/1998, Additional history exists COVID-19 VACCINE (2024-2 6 season) 2024 03/26/2023, 05/21/2021, 02/27/2021, Additional history exists PAP 01/06/2025 01/06/2022 HEPATITIS B VACCINE Completed 03/28/2008, 06/07/1995, 1994, Additional history exists HPV VACCINE Completed 01/24/2009, 09/24, 03/28/2008, Additional history exists HIV SCREENING Completed 11/29/2022, 07/27/2020 HEPATITIS C SCREENING Completed 12/10/2022 , 11/29/2022, 07/27/2020 INFLUENZA VACCINE Completed 01/18/2025, , 01/15/2023, Additional history exists PNEUMOCOCCAL VACCINE: PEDIAT RICS (0 to 5 YEARS) AND AT-RISK PATIENTS (6 to 49 YEARS) Completed 01/18/2025 Goals Goal Patient Goal Type Associated Problems [...] 2-3 days of medication remaining. Medical Devices Explanted Type Area Early Morning Babysitter Device Identifier Shelf Expiration Date Model / Serial / Lot Bard 9.6 Powerflow Apheresis Iv Port-05/25/2024 Implanted:Qty: 1 on 05/25/2024 by Myron Michel MD Explanted:Qty: 1 on 11/10/2024 by Salvador Contreras MD at [facility] Right: Chest Wall BARD 08/23/2024 [id number] / / [id number] Description:Right chest Wall Apheresis Port 9.6FR (Power) 6frt Smartport-05/25 Implanted:Qty: 1 on 05/25/2024 by Myron Michel MD Explanted:Qty: 1 on 11/10/2024 by Salvador Contreras MD at [facility] Left: Chest Wall [employer] 09/23/2026 [id number] / / [id number] Description:6FR SL SmartPort (Power - 300psi max) Procedures Procedure Name Priority Date/Time Associated Diagnosis Comments CBC WITH PLATELETS AND DIFFERENTIAL (LIMITED OCCURRENCES) STAT 02/02/2025 7:12 PM CDT CBC WITH PLATELETS AND DIFFERENTIAL STAT 02/02/2025 7:12 PM CDT HCG QUALITATIVE STAT 02/02/2025 7:12 PM CDT RETICULOCYTE COUNT STAT 02/02/2025 7: 12 PM CDT COMPREHENSIVE METABOLIC PANEL (LIMITED OCCURRENCES) STAT 02/02/2025 7:12 PM CDT CBC WITH PLATELETS STAT 01/30/2025 7: 20 AM CDT BASIC METABOLIC PANEL (LIMITED OCCURRENCES) STAT 01/30/2025 7:20 AM CDT TROPONIN T, HIGH SENSITIVITY STAT 01/29/2025 4:14 PM CDT XR CHEST 2 VIEWS STAT 01/29/2025 2:10 PM CDT CBC WITH PLATELETS AND DIFFERENTIAL (LIMITED OCCURRENCES) STAT 01/29/2025 1:51 PM CDT RBC AND PLATELET MORPHOLOGY STAT 01/29/2025 1:51 PM CDT EXTRA RED TOP TUBE STAT 01/29/2025 1: 51 PM CDT EXTRA BLUE TOP TUBE STAT 01/29/2025 1 :51 PM CDT CBC WITH PLATELETS AND DIFFERENTIAL STAT 01/29/2025 1:51 PM CDT EXTRA TUBE STAT 01/29/2025 1:51 PM CDT NT-PROBNP STAT 01/29/2025 1:51 PM CDT RETICULOCYTE COUNT STAT 01/29/2025 1: 51 PM CDT BASIC METABOLIC PANEL (LIMITED OCCURRENCES) STAT 01/29/2025 1:51 PM CDT EKG 12-LEAD, TRACING ONLY STAT 01/29/2025 1:17 PM CDT EKG 12-LEAD, TRACING ONLY STAT 01/26/2025 6:37 PM CDT CBC WITH PLATELETS AND DIFFERENTIAL (LIMITED OCCURRENCES) STAT 01/25/2025 7:40 PM CDT RBC AND PLATELET MORPHOLOGY STAT 01/25/2025 7:40 PM CDT CBC WITH PLATELETS AND DIFFERENTIAL STAT 01/25/2025 7:40 PM CDT HCG QUALITATIVE STAT 01/25/2025 7:40 PM CDT RETICULOCYTE COUNT STAT 01/25/2025 7: 40 PM CDT COMPREHENSIVE METABOLIC PANEL (LIMITED OCCURRENCES) STAT 01/25/2025 7:40 PM CDT INR STAT 01/25/2025 7:40 PM CDT CBC WITH PLATELETS AND DIFFERENTIAL (LIMITED OCCURRENCES) STAT 01/24/2025 9:27 PM CDT RBC AND PLATELET MORPHOLOGY STAT 01/24/2025 9:27 PM CDT CBC WITH PLATELETS AND DIFFERENTIAL STAT 01/24/2025 9:27 PM CDT HCG QUALITATIVE STAT 01/24/2025 9:27 PM CDT RETICULOCYTE COUNT STAT 01/24/2025 9: 27 PM CDT COMPREHENSIVE METABOLIC PANEL (LIMITED OCCURRENCES) STAT 01/24/2025 9:27 PM CDT INR STAT 01/24/2025 9:27 PM CDT EXTRA PURPLE TOP TUBE STAT 01/23/2025 9:35 PM CDT EXTRA GREEN TOP (LITHIUM HEPARIN) TUBE STAT 01/23/2025 9:35 PM CDT EXTRA RED TOP TUBE STAT 01/23/2025 9: 35 PM CDT EXTRA BLUE TOP TUBE STAT 01/23/2025 9 :35 PM CDT EXTRA TUBE STAT 01/23/2025 9:35 PM CDT EXTRA PURPLE TOP TUBE STAT 01/20/2025 12:31 PM CDT EXTRA GREEN TOP (LITHIUM HEPARIN) TUBE STAT 01/20/2025 12:31 PM CDT EXTRA TUBE STAT 01/20/2025 12:31 PM CDT ROUTINE UA WITH MICROSCOPIC REFLEX TO CULTURE STAT 01/19/2025 6:32 PM CDT CBC WITH PLATELETS AND DIFFERENTIAL (LIMITED OCCURRENCES) STAT 01/19/2025 6:15 PM CDT DIFFERENTIAL STAT 01/19/2025 6:15 PM CDT RBC AND PLATELET MORPHOLOGY STAT 01/19/2025 6:15 PM CDT CBC WITH PLATELETS AND DIFFERENTIAL STAT 01/19/2025 6:15 PM CDT HCG QUALITATIVE STAT 01/19/2025 6:15 PM CDT RETICULOCYTE COUNT STAT 01/19/2025 6: 15 PM CDT LACTIC ACID WHOLE BLOOD WITH 1X REPEAT IN 2 HR WHEN >2 STAT 01/19/2025 6:15 PM CDT COMPREHENSIVE METABOLIC PANEL (LIMITED OCCURRENCES) STAT 01/19/2025 6:15 PM CDT INR STAT 01/19/2025 6:15 PM CDT CBC WITH PLATELETS & DIFFERENTIAL Routine 01/18/2025 9:27 AM CDT Sickle cell pain crisis (H) RBC AND PLATELET MORPHOLOGY Routine 01/18/2025 9:27 AM CDT Sickle cell pain crisis (H) CBC WITH PLATELETS AND DIFFERENTIAL Routine 01/18/2025 9:27 AM CDT Sickle cell pain crisis (H) BASIC METABOLIC PANEL Routine 01/18/2025 9:27 AM CDT Sickle cell pain crisis (H) CBC WITH PLATELETS AND DIFFERENTIAL (LIMITED OCCURRENCES) STAT 01/17/2025 10:00 PM CDT RBC AND PLATELET MORPHOLOGY STAT 01/17/2025 10:00 PM CDT CBC WITH PLATELETS AND DIFFERENTIAL STAT 01/17/2025 10:00 PM CDT LACTIC ACID WHOLE BLOOD WITH 1X REPEAT IN 2 HR WHEN >2 STAT 01/17/2025 10:00 PM CDT HCG QUALITATIVE STAT 01/17/2025 10:00 PM CDT RETICULOCYTE COUNT STAT 01/17/2025 10 :00 PM CDT COMPREHENSIVE METABOLIC PANEL (LIMITED OCCURRENCES) STAT 01/17/2025 10:00 PM CDT INR STAT 01/17/2025 10:00 PM CDT CBC WITH PLATELETS AND DIFFERENTIAL (LIMITED OCCURRENCES) STAT 01/14/2025 11:54 AM CDT CBC WITH PLATELETS AND DIFFERENTIAL STAT 01/14/2025 11:54 AM CDT BASIC METABOLIC PANEL (LIMITED OCCURRENCES) STAT 01/14/2025 11:54 AM CDT RETICULOCYTE COUNT STAT 01/14/2025 11 :54 AM CDT BLOOD CULTURE STAT 01/12/2025 10:31 PM CDT LACTIC ACID WHOLE BLOOD WITH 1X REPEAT IN 2 HR WHEN >2 STAT 01/12/2025 10:30 PM CDT ROUTINE UA WITH MICROSCOPIC REFLEX TO CULTURE STAT 01/12/2025 10:18 PM CDT CBC WITH PLATELETS AND DIFFERENTIAL (LIMITED OCCURRENCES) STAT 01/12/2025 8:43 PM CDT PROCALCITONIN STAT 01/12/2025 8:43 PM CDT RBC AND PLATELET MORPHOLOGY STAT 01/12/2025 8:43 PM CDT CBC WITH PLATELETS AND DIFFERENTIAL STAT 01/12/2025 8:43 PM CDT RETICULOCYTE COUNT STAT 01/12/2025 8: 43 PM CDT COMPREHENSIVE METABOLIC PANEL (LIMITED OCCURRENCES) STAT 01/12/2025 8:43 PM CDT ABO/RH TYPE AND SCREEN Add-On 01/10/2025 6:35 AM CDT TYPE AND SCREEN, ADULT Routine 01/10/2025 6:35 AM CDT RETICULOCYTE COUNT Add-On 01/10/2025 6: 35 AM CDT CBC WITH PLATELETS STAT 01/10/2025 6: 35 AM CDT COMPREHENSIVE METABOLIC PANEL (LIMITED OCCURRENCES) STAT 01/10/2025 6:35 AM CDT ROUTINE UA WITH MICROSCOPIC REFLEX TO CULTURE STAT 01/09/2025 8:47 PM CDT XR CHEST 2 VIEWS STAT 01/09/2025 7:37 PM CDT CBC WITH PLATELETS AND DIFFERENTIAL (LIMITED OCCURRENCES) STAT 01/09/2025 7:00 PM CDT CBC WITH PLATELETS AND DIFFERENTIAL STAT 01/09/2025 7:00 PM CDT HCG QUALITATIVE STAT 01/09/2025 7:00 PM CDT COMPREHENSIVE METABOLIC PANEL (LIMITED OCCURRENCES) STAT 01/09/2025 7:00 PM CDT INR STAT 01/09/2025 7:00 PM CDT CBC WITH PLATELETS & DIFFERENTIAL STAT 01/08/2025 9:52 PM CDT CBC WITH PLATELETS AND DIFFERENTIAL STAT 01/08/2025 9:52 PM CDT HCG QUALITATIVE STAT 01/08/2025 9:52 PM CDT RETICULOCYTE COUNT STAT 01/08/2025 9: 52 PM CDT COMPREHENSIVE METABOLIC PANEL STAT 01/08/2025 9:52 PM CDT ABO/RH TYPE AND SCREEN STAT 01/06/2025 9:56 PM CDT TYPE AND SCREEN, ADULT STAT 01/06/2025 9:56 PM CDT CBC WITH PLATELETS AND DIFFERENTIAL (LIMITED OCCURRENCES) STAT 01/06/2025 8:56 PM CDT CBC WITH PLATELETS AND DIFFERENTIAL STAT 01/06/2025 8:56 PM CDT RETICULOCYTE COUNT STAT 01/06/2025 8: 56 PM CDT COMPREHENSIVE METABOLIC PANEL (LIMITED OCCURRENCES) STAT 01/06/2025 8:56 PM CDT CBC WITH PLATELETS AND DIFFERENTIAL (LIMITED OCCURRENCES) STAT 01/05/2025 10:15 PM CDT CBC WITH PLATELETS AND DIFFERENTIAL STAT 01/05/2025 10:15 PM CDT COMPREHENSIVE METABOLIC PANEL (LIMITED OCCURRENCES) STAT 01/05/2025 10:15 PM CDT RETICULOCYTE COUNT STAT 01/05/2025 10 :15 PM CDT BLOOD CULTURE STAT 01/04/2025 10:53 AM CDT BLOOD CULTURE STAT 01/04/2025 10:50 AM CDT CBC WITH PLATELETS AND DIFFERENTIAL (LIMITED OCCURRENCES) Routine 01/04/2025 8:46 AM CDT CBC WITH PLATELETS AND DIFFERENTIAL Routine 01/04/2025 8:46 AM CDT RETICULOCYTE COUNT Routine 01/04/2025 8: 46 AM CDT TRANSFUSE RED BLOOD CELLS (UNIT) Routine 01/03/2025 1:23 PM CDT ABO/RH TYPE AND SCREEN STAT 01/03/2025 10:23 AM CDT TYPE AND SCREEN, ADULT STAT 01/03/2025 10:23 AM CDT PREPARE RED BLOOD CELLS (UNIT) Routine 01/03/2025 9:31 AM CDT BLOOD CULTURE ID PANEL, PCR Routine 01/03/2025 6:29 AM CDT BLOOD CULTURE STAT 01/03/2025 6:29 AM CDT CBC WITH PLATELETS Routine 01/03/2025 6: 29 AM CDT BASIC METABOLIC PANEL (LIMITED OCCURRENCES) Routine 01/03/2025 6:29 AM CDT ROUTINE UA WITH MICROSCOPIC REFLEX TO CULTURE STAT 01/02/2025 5:13 PM CDT BLOOD CULTURE STAT 01/02/2025 4:38 PM CDT ECHO MANUEL STAT 01/02/2025 2:41 PM CDT CBC WITH PLATELETS AND DIFFERENTIAL (LIMITED OCCURRENCES) STAT 01/02/2025 8:48 AM CDT RBC AND PLATELET MORPHOLOGY STAT 01/02/2025 8:48 AM CDT CBC WITH PLATELETS AND DIFFERENTIAL STAT 01/02/2025 8:48 AM CDT CRP INFLAMMATION STAT 01/02/2025 8:48 AM CDT RETICULOCYTE COUNT STAT 01/02/2025 8: 48 AM CDT COMPREHENSIVE METABOLIC PANEL (LIMITED OCCURRENCES) STAT 01/02/2025 8:48 AM CDT CBC WITH PLATELETS AND DIFFERENTIAL (LIMITED OCCURRENCES) STAT 01/01/2025 10:44 PM CDT RBC AND PLATELET MORPHOLOGY STAT 01/01/2025 10:44 PM CDT CBC WITH PLATELETS AND DIFFERENTIAL STAT 01/01/2025 10:44 PM CDT COMPREHENSIVE METABOLIC PANEL (LIMITED OCCURRENCES) STAT 01/01/2025 10:44 PM CDT BLOOD CULTURE STAT 12/31/2024 1:02 PM CDT BLOOD CULTURE STAT 12/31/2024 1:02 PM CDT CRP INFLAMMATION Routine 12/31/2024 6:13 AM CDT BASIC METABOLIC PANEL (LIMITED OCCURRENCES) Routine 12/31/2024 6:13 AM CDT CBC WITH PLATELETS (LIMITED OCCURRENCES) Routine 12/31/2024 6:13 AM CDT ECHO LIMITED STAT 12/30/2024 10:53 AM CDT CBC WITH PLATELETS AND DIFFERENTIAL (LIMITED OCCURRENCES) STAT 12/30/2024 5:52 AM CDT RBC AND PLATELET MORPHOLOGY STAT 12/30/2024 5:52 AM CDT CBC WITH PLATELETS AND DIFFERENTIAL STAT 12/30/2024 5:52 AM CDT RETICULOCYTE COUNT Routine 12/30/2024 5: 52 AM CDT BLOOD CULTURE STAT 12/29/2024 10:18 PM CDT BLOOD CULTURE ID PANEL, PCR Routine 12/29/2024 10:01 PM CDT BLOOD CULTURE STAT 12/29/2024 10:01 PM CDT CBC WITH PLATELETS AND DIFFERENTIAL (LIMITED OCCURRENCES) STAT 12/29/2024 6:24 PM CDT PROCALCITONIN Add-On 12/29/2024 6:24 PM CDT CRP INFLAMMATION Add-On 12/29/2024 6:24 PM CDT MANUAL DIFFERENTIAL STAT 12/29/2024 6 :24 PM CDT RBC AND PLATELET MORPHOLOGY STAT 12/29/2024 6:24 PM CDT CBC WITH PLATELETS AND DIFFERENTIAL STAT 12/29/2024 6:24 PM CDT HCG QUALITATIVE STAT 12/29/2024 6:24 PM CDT LACTIC ACID WHOLE BLOOD WITH 1X REPEAT IN 2 HR WHEN >2 STAT 12/29/2024 6:24 PM CDT COMPREHENSIVE METABOLIC PANEL (LIMITED OCCURRENCES) STAT 12/29/2024 6:24 PM CDT INR STAT 12/29/2024 6:24 PM CDT RETICULOCYTE COUNT STAT 12/29/2024 6: 24 PM CDT CBC WITH PLATELETS AND DIFFERENTIAL (LIMITED OCCURRENCES) STAT 12/27/2024 7:22 PM CDT RBC AND PLATELET MORPHOLOGY STAT 12/27/2024 7:22 PM CDT CBC WITH PLATELETS AND DIFFERENTIAL STAT 12/27/2024 7:22 PM CDT RETICULOCYTE COUNT STAT 12/27/2024 7: 22 PM CDT COMPREHENSIVE METABOLIC PANEL (LIMITED OCCURRENCES) STAT 12/27/2024 7:22 PM CDT CBC WITH PLATELETS AND DIFFERENTIAL (LIMITED OCCURRENCES) STAT 12/26/2024 3:08 PM CDT CBC WITH PLATELETS AND DIFFERENTIAL STAT 12/26/2024 3:08 PM CDT RETICULOCYTE COUNT STAT 12/26/2024 3: 08 PM CDT COMPREHENSIVE METABOLIC PANEL (LIMITED OCCURRENCES) STAT 12/26/2024 3:08 PM CDT CBC WITH PLATELETS AND DIFFERENTIAL (LIMITED OCCURRENCES) STAT 12/25/2024 8:08 PM CDT CBC WITH PLATELETS AND DIFFERENTIAL STAT 12/25/2024 8:08 PM CDT HCG QUALITATIVE STAT 12/25/2024 8:08 PM CDT RETICULOCYTE COUNT STAT 12/25/2024 8: 08 PM CDT COMPREHENSIVE METABOLIC PANEL (LIMITED OCCURRENCES) STAT 12/25/2024 8:08 PM CDT INR STAT 12/25/2024 8:08 PM CDT CBC WITH PLATELETS AND DIFFERENTIAL (LIMITED OCCURRENCES) STAT 12/24/2024 10:23 PM CDT RBC AND PLATELET MORPHOLOGY STAT 12/24/2024 10:23 PM CDT CBC WITH PLATELETS AND DIFFERENTIAL STAT 12/24/2024 10:23 PM CDT INR STAT 12/24/2024 10:23 PM CDT HCG QUALITATIVE STAT 12/24/2024 10:23 PM CDT RETICULOCYTE COUNT STAT 12/24/2024 10 :23 PM CDT COMPREHENSIVE METABOLIC PANEL (LIMITED OCCURRENCES) STAT 12/24/2024 10:23 PM CDT XR CHEST 2 VIEWS STAT 12/23/2024 4:50 PM CDT CBC WITH PLATELETS AND DIFFERENTIAL (LIMITED OCCURRENCES) STAT 12/23/2024 4:25 PM CDT DIFFERENTIAL STAT 12/23/2024 4:25 PM CDT RBC AND PLATELET MORPHOLOGY STAT 12/23/2024 4:25 PM CDT CBC WITH PLATELETS AND DIFFERENTIAL STAT 12/23/2024 4:25 PM CDT RETICULOCYTE COUNT STAT 12/23/2024 4: 25 PM CDT TROPONIN T, HIGH SENSITIVITY STAT 12/23/2024 4:25 PM CDT COMPREHENSIVE METABOLIC PANEL (LIMITED OCCURRENCES) STAT 12/23/2024 4:25 PM CDT EKG 12-LEAD, TRACING ONLY STAT 12/23/2024 4:18 PM CDT CBC WITH PLATELETS AND DIFFERENTIAL (LIMITED OCCURRENCES) STAT 12/21/2024 9:10 PM CDT RBC AND PLATELET MORPHOLOGY STAT 12/21/2024 9:10 PM CDT HCG QUALITATIVE STAT 12/21/2024 9:10 PM CDT COMPREHENSIVE METABOLIC PANEL (LIMITED OCCURRENCES) STAT 12/21/2024 9:10 PM CDT INR STAT 12/21/2024 9:10 PM CDT EXTRA RED TOP TUBE STAT 12/21/2024 9: 10 PM CDT EXTRA BLUE TOP TUBE STAT 12/21/2024 9 :10 PM CDT CBC WITH PLATELETS AND DIFFERENTIAL STAT 12/21/2024 9:10 PM CDT EXTRA TUBE STAT 12/21/2024 9:10 PM CDT TROPONIN T, HIGH SENSITIVITY STAT 12/21/2024 9:10 PM CDT EKG 12-LEAD, TRACING ONLY STAT 12/21/2024 8:51 PM CDT CBC WITH PLATELETS AND DIFFERENTIAL (LIMITED OCCURRENCES) STAT 12/18/2024 6:22 PM CDT CBC WITH PLATELETS AND DIFFERENTIAL STAT 12/18/2024 6:22 PM CDT HCG QUALITATIVE STAT 12/18/2024 6:22 PM CDT RETICULOCYTE COUNT STAT 12/18/2024 6: 22 PM CDT COMPREHENSIVE METABOLIC PANEL (LIMITED OCCURRENCES) STAT 12/18/2024 6:22 PM CDT CBC WITH PLATELETS AND DIFFERENTIAL (LIMITED OCCURRENCES) STAT 12/17/2024 1:53 AM CDT CBC WITH PLATELETS AND DIFFERENTIAL STAT 12/17/2024 1:53 AM CDT RETICULOCYTE COUNT STAT 12/17/2024 1: 53 AM CDT BASIC METABOLIC PANEL (LIMITED OCCURRENCES) STAT 12/17/2024 1:53 AM CDT CBC WITH PLATELETS AND DIFFERENTIAL (LIMITED OCCURRENCES) STAT 12/15/2024 5:03 PM CDT CBC WITH PLATELETS AND DIFFERENTIAL STAT 12/15/2024 5:03 PM CDT RETICULOCYTE COUNT STAT 12/15/2024 5: 03 PM CDT COMPREHENSIVE METABOLIC PANEL (LIMITED OCCURRENCES) STAT 12/15/2024 5:03 PM CDT CBC WITH PLATELETS & DIFFERENTIAL STAT 12/14/2024 3:05 PM CDT Bacteremia Methicillin susceptible Staphylococcus aureus infection as the cause of diseases classified elsewhere CBC WITH PLATELETS AND DIFFERENTIAL STAT 12/14/2024 3:05 PM CDT Bacteremia Methicillin susceptible Staphylococcus aureus infection as the cause of diseases classified elsewhere CREATININE STAT 12/14/2024 3:05 PM CDT Bacteremia Methicillin susceptible Staphylococcus aureus infection as the cause of diseases classified elsewhere AST STAT 12/14/2024 3:05 PM CDT Bacteremia Methicillin susceptible Staphylococcus aureus infection as the cause of diseases classified elsewhere BLOOD CULTURE STAT 12/11/2024 11:28 PM CDT BLOOD CULTURE STAT 12/11/2024 11:16 PM CDT CBC WITH PLATELETS AND DIFFERENTIAL (LIMITED OCCURRENCES) STAT 12/11/2024 9:20 PM CDT CBC WITH PLATELETS AND DIFFERENTIAL STAT 12/11/2024 9:20 PM CDT RETICULOCYTE COUNT STAT 12/11/2024 9: 20 PM CDT COMPREHENSIVE METABOLIC PANEL (LIMITED OCCURRENCES) STAT 12/11/2024 9:20 PM CDT CBC WITH PLATELETS AND DIFFERENTIAL (LIMITED OCCURRENCES) STAT 12/10/2024 5:51 AM CDT CBC WITH PLATELETS AND DIFFERENTIAL STAT 12/10/2024 5:51 AM CDT COMPREHENSIVE METABOLIC PANEL (LIMITED OCCURRENCES) STAT 12/10/2024 5:51 AM CDT BLOOD CULTURE STAT 12/09/2024 10:03 AM CDT CBC WITH PLATELETS AND DIFFERENTIAL (LIMITED OCCURRENCES) STAT 12/09/2024 10:01 AM CDT BLOOD CULTURE STAT 12/09/2024 10:01 AM CDT RBC AND PLATELET MORPHOLOGY STAT 12/09/2024 10:01 AM CDT CBC WITH PLATELETS AND DIFFERENTIAL STAT 12/09/2024 10:01 AM CDT RETICULOCYTE COUNT STAT 12/09/2024 10 :01 AM CDT COMPREHENSIVE METABOLIC PANEL (LIMITED OCCURRENCES) STAT 12/09/2024 10:01 AM CDT CBC WITH PLATELETS AND DIFFERENTIAL (LIMITED OCCURRENCES) STAT 12/08/2024 6:34 PM CDT CRP INFLAMMATION Add-On 12/08/2024 6:34 PM CDT CBC WITH PLATELETS AND DIFFERENTIAL STAT 12/08/2024 6:34 PM CDT RETICULOCYTE COUNT STAT 12/08/2024 6: 34 PM CDT BASIC METABOLIC PANEL (LIMITED OCCURRENCES) STAT 12/08/2024 6:34 PM CDT CBC WITH PLATELETS AND DIFFERENTIAL (LIMITED OCCURRENCES) STAT 12/07/2024 9:45 PM CDT RBC AND PLATELET MORPHOLOGY STAT 12/07/2024 9:45 PM CDT CBC WITH PLATELETS AND DIFFERENTIAL STAT 12/07/2024 9:45 PM CDT RETICULOCYTE COUNT STAT 12/07/2024 9: 45 PM CDT HCG QUALITATIVE STAT 12/07/2024 9:31 PM CDT TROPONIN T, HIGH SENSITIVITY STAT 12/07/2024 9:31 PM CDT COMPREHENSIVE METABOLIC PANEL (LIMITED OCCURRENCES) STAT 12/07/2024 9:31 PM CDT INR STAT 12/07/2024 9:31 PM CDT CBC WITH PLATELETS & DIFFERENTIAL STAT 12/06/2024 11:30 AM CDT Bacteremia Methicillin susceptible Staphylococcus aureus infection as the cause of diseases classified elsewhere RBC AND PLATELET MORPHOLOGY STAT 12/06/2024 11:30 AM CDT Bacteremia Methicillin susceptible Staphylococcus aureus infection as the cause of diseases classified elsewhere MANUAL DIFFERENTIAL STAT 12/06/2024 1 1:30 AM CDT Bacteremia Methicillin susceptible Staphylococcus aureus infection as the cause of diseases classified elsewhere CBC WITH PLATELETS AND DIFFERENTIAL STAT 12/06/2024 11:30 AM CDT Bacteremia Methicillin susceptible Staphylococcus aureus infection as the cause of diseases classified elsewhere CREATININE STAT 12/06/2024 11:30 AM CDT Bacteremia Methicillin susceptible Staphylococcus aureus infection as the cause of diseases classified elsewhere AST STAT 12/06/2024 11:30 AM CDT Bacteremia Methicillin susceptible Staphylococcus aureus infection as the cause of diseases classified elsewhere COMPREHENSIVE METABOLIC PANEL (LIMITED OCCURRENCES) STAT 12/04/2024 10:27 PM CDT CBC WITH PLATELETS AND DIFFERENTIAL (LIMITED OCCURRENCES) STAT 12/04/2024 10:04 PM CDT CBC WITH PLATELETS AND DIFFERENTIAL STAT 12/04/2024 10:04 PM CDT RETICULOCYTE COUNT STAT 12/04/2024 10 :04 PM CDT HCG QUALITATIVE STAT 12/04/2024 10:04 PM CDT CBC WITH PLATELETS & DIFFERENTIAL STAT 12/03/2024 5:48 AM CDT CBC WITH PLATELETS AND DIFFERENTIAL STAT 12/03/2024 5:48 AM CDT RETICULOCYTE COUNT Routine 12/03/2024 5 :48 AM CDT COMPREHENSIVE METABOLIC PANEL (LIMITED OCCURRENCES) Routine 12/03/2024 5:48 AM CDT ECHO COMPLETE Routine 12/02/2024 10:20 AM CDT CBC WITH PLATELETS & DIFFERENTIAL STAT 12/02/2024 9:58 AM CDT CBC WITH PLATELETS AND DIFFERENTIAL STAT 12/02/2024 9:58 AM CDT RETICULOCYTE COUNT STAT 12/02/2024 9: 58 AM CDT COMPREHENSIVE METABOLIC PANEL (LIMITED OCCURRENCES) STAT 12/02/2024 9:58 AM CDT BLOOD CULTURE STAT 12/02/2024 12:18 AM CDT BLOOD CULTURE STAT 12/02/2024 12:18 AM CDT XR CHEST 2 VIEWS STAT 12/01/2024 6:57 PM CDT EKG 12-LEAD, TRACING ONLY STAT 12/01/2024 6:38 PM CDT CBC WITH PLATELETS AND DIFFERENTIAL (LIMITED OCCURRENCES) STAT 12/01/2024 6:31 PM CDT PROCALCITONIN STAT 12/01/2024 6:31 PM CDT CRP INFLAMMATION STAT 12/01/2024 6:31 PM CDT RETICULOCYTE COUNT Add-On 12/01/2024 6: 31 PM CDT CBC WITH PLATELETS AND DIFFERENTIAL STAT 12/01/2024 6:31 PM CDT TROPONIN T, HIGH SENSITIVITY STAT 12/01/2024 6:31 PM CDT COMPREHENSIVE METABOLIC PANEL (LIMITED OCCURRENCES) STAT 12/01/2024 6:31 PM CDT CBC WITH PLATELETS & DIFFERENTIAL Routine 11/29/2024 2:35 PM CDT Bacteremia Methicillin susceptible Staphylococcus aureus infection as the cause of diseases classified elsewhere CBC WITH PLATELETS AND DIFFERENTIAL Routine 11/29/2024 2:35 PM CDT Bacteremia Methicillin susceptible Staphylococcus aureus infection as the cause of diseases classified elsewhere AST Routine 11/29/2024 2:35 PM CDT Bacteremia Methicillin susceptible Staphylococcus aureus infection as the cause of diseases classified elsewhere CREATININE Routine 11/29/2024 2:35 PM CDT Bacteremia Methicillin susceptible Staphylococcus aureus infection as the cause of diseases classified elsewhere CBC WITH PLATELETS AND DIFFERENTIAL (LIMITED OCCURRENCES) STAT 11/20/2024 9:10 PM CDT AST STAT 11/20/2024 9:10 PM CDT CBC WITH PLATELETS AND DIFFERENTIAL STAT 11/20/2024 9:10 PM CDT RETICULOCYTE COUNT STAT 11/20/2024 9: 10 PM CDT BASIC METABOLIC PANEL (LIMITED OCCURRENCES) STAT 11/20/2024 9:10 PM CDT CBC WITH PLATELETS AND DIFFERENTIAL (LIMITED OCCURRENCES) STAT 11/19/2024 9:32 PM CDT RBC AND PLATELET MORPHOLOGY STAT 11/19/2024 9:32 PM CDT CBC WITH PLATELETS AND DIFFERENTIAL STAT 11/19/2024 9:32 PM CDT HCG QUALITATIVE STAT 11/19/2024 9:32 PM CDT RETICULOCYTE COUNT STAT 11/19/2024 9: 32 PM CDT BASIC METABOLIC PANEL (LIMITED OCCURRENCES) STAT 11/19/2024 9:32 PM CDT CBC WITH PLATELETS & DIFFERENTIAL STAT 11/15/2024 11:45 AM CDT Bacteremia Methicillin susceptible Staphylococcus aureus infection as the cause of diseases classified elsewhere EXTRA RED TOP TUBE (LAB USE ONLY) Routine 11/15/2024 11:45 AM CDT Bacteremia Methicillin susceptible Staphylococcus aureus infection as the cause of diseases classified elsewhere CBC WITH PLATELETS AND DIFFERENTIAL STAT 11/15/2024 11:45 AM CDT Bacteremia Methicillin susceptible Staphylococcus aureus infection as the cause of diseases classified elsewhere CREATININE STAT 11/15/2024 11:45 AM CDT Bacteremia Methicillin susceptible Staphylococcus aureus infection as the cause of diseases classified elsewhere AST STAT 11/15/2024 11:45 AM CDT Bacteremia Methicillin susceptible Staphylococcus aureus infection as the cause of diseases classified elsewhere PICC SINGLE LUMEN PLACEMENT Routine 11/14/2024 1:20 PM CDT BLOOD CULTURE STAT 11/12/2024 6:39 AM CDT BLOOD CULTURE STAT 11/12/2024 6:31 AM CDT CBC WITH PLATELETS Routine 11/12/2024 6: 31 AM CDT BASIC METABOLIC PANEL Routine 11/12/2024 6:31 AM CDT ANE AIRWAY SUPRAGLOTTIC PERFORMABLE Routine 11/10/2024 5:34 PM CDT AEROBIC BACTERIAL CULTURE ROUTINE Routine 11/10/2024 5:34 PM CDT ANAEROBIC BACTERIAL CULTURE ROUTINE Routine 11/10/2024 5:34 PM CDT AEROBIC BACTERIAL CULTURE ROUTINE Routine 11/10/2024 5:31 PM CDT ANAEROBIC BACTERIAL CULTURE ROUTINE Routine 11/10/2024 5:31 PM CDT REMOVAL OF TUNNELED CVA DEVICE, WITH SUBQ PORT OR PUMP, CENTRAL OR PERIPHERAL INSERTION 11/10/2024 5:10 PM CDT Sepsis, due to unspecified organism, unspecified whether acute organ dysfunction present (H) HCG QUALITATIVE Routine 11/09/2024 3:58 PM CDT URINE DRUG SCREEN Routine 11/09/2024 10: 48 AM CDT URINE CREATININE FOR DRUG SCREEN PANEL Routine 11/09/2024 10:48 AM CDT OPIATES, URN, QUANT Routine 11/09/2024 1 0:48 AM CDT THC CONFIRMATION QUANTITATIVE URINE Routine 11/09/2024 10:48 AM CDT URINE DRUG SCREEN PANEL Routine 11/09/2024 10:48 AM CDT LACTATE DEHYDROGENASE Routine 11/09/2024 10:30 AM CDT CBC WITH PLATELETS & DIFFERENTIAL Add-On 11/09/2024 7:25 AM CDT MANUAL DIFFERENTIAL Routine 11/09/2024 7 :25 AM CDT RBC AND PLATELET MORPHOLOGY Routine 11/09/2024 7:25 AM CDT CBC WITH PLATELETS AND DIFFERENTIAL Routine 11/09/2024 7:25 AM CDT BASIC METABOLIC PANEL Add-On 11/09/2024 7:25 AM CDT HEPATIC FUNCTION PANEL Add-On 11/09/2024 7:25 AM CDT FERRITIN Routine 11/09/2024 7:25 AM CDT RETICULOCYTE COUNT Routine 11/09/2024 7: 25 AM CDT from Last 3 Months Results * (ABNORMAL) CBC with platelets and differential (02/02/2025 7:12 PM CDT) Only the most recent of43 resultswithin the time period is included. WBC Count 12.33(H) 4.00 - 11.00 10e3/uL [...] - BLOOD ORDERABLES Final Result [facility] [place] Core Lab [address] [facility], [address] [place] [address], [facility] * (ABNORMAL) Comprehensive Metabolic Panel (Limited Occurrences) (02/02/2025 7:12 PM CDT) Only the most recent of29 resultswithin the time period is included. Sodium 139 135 - 145 mmol/L 02/02/2025 [...] - BLOOD ORDERABLES Final Result [facility] [place] Core Lab [address] [facility], [address] [address] * (ABNORMAL) Reticulocyte count (02/02/2025 7:12 PM CDT) Only the most recent of35 resultswithin the time period is included. % Reticulocyte 17.36(H) 0.50 - 2.00 % 02/02/2025 7:40 PM CDT [facility] Absolute Reticulocyte 0.4739(H) 0.0250 - 0.0950 10e6/uL 02/02/2025 7:40 PM CDT [facility] Blood BLOOD SPECIMEN / Unknown Venipuncture / Unknown 02/02/2025 7:12 PM CDT 02/02/2025 7:25 PM CDT us Margueriet Burgess MD LAB - BLOOD ORDERABLES Final Result LABORATORY [facility] [place] Core Lab [address] [facility], [address] [address] * HCG qualitative Blood (02/02/2025 7:12 PM CDT) Only the most recent of16 resultswithin the time period is included. Pathologist [facility] hCG Serum Qualitative Negative Negative JARET 02/02/2025 7:44 PM CDT U LABORATORY Comment:This test is for scr eening purposes. Results should be interpreted along with the clinical picture. Confirmation testing is available if warranted by ordering [id number], HCG Quantitative . Blood BLOOD SPECIMEN / Unknown Venipuncture / Unknown 02/02/2025 7:12 PM CDT 02/02/2025 7:24 PM CDT us Marguerite Burgess MD LAB - BLOOD ORDERABLES Final Result [facility]AT[facility] [place] Core Lab [address] [facility], [address] [address] * (ABNORMAL) Basic Metabolic Panel (Limited Occurrences) (01/30/2025 7:20 AM CDT) Only the most recent of9 resultswithin the time period is included. Pathologist [facility] Sodium 137 135 - 145 mmol/L 01/30/2025 [...] - BLOOD ORDERABLES Final Result [facility] [place] Core Lab [address] [facility], [address] [place] [address], [facility] * (ABNORMAL) CBC with platelets (01/30/2025 7:20 AM CDT) Only the most recent of4 resultswithin the time period is included. Pathologist [facility] WBC Count 13.34(H) 4.00 - 11.00 10e3/uL [...] - BLOOD ORDERABLES Final Result [facility] [place] Core Lab [address] [facility], [address] [place] [address], [facility] * Troponin T, High Sensitivity (01/29/2025 4:14 PM CDT) Only the most recent of5 resultswithin the time period is included. [facility] Troponin T, High Sensitivity <6 <=14 [...] LAB - BLOOD ORDERABLES Final Result LABORATORY [facility] Core Lab [address] [facility], [address] [phone] * XR Chest 2 Views (01/29/2025 2:10 PM CDT) Only the most recent of4 resultswithin the time period is included. Anatomical [...] No acute chest findings. EVY FUENTES MD us Payal Arriaga DO IMG DIAGNOSTIC IMAGING ORDERA BLES Final Result * Extra Red Top Tube (01/29/2025 1:51 PM CDT) Only the most recent of3 resultswithin the time period is included. Hold Specimen [facility] 01/29/2025 3:01 PM CDT [facility] LAB[facility]ATORY Blood BLOOD SPECIMEN / Unknown Venipuncture / Unknown 01/29/2025 1:51 PM CDT 01/29/2025 2:00 PM CDT us Payal Arriaga DO LAB - BLOOD ORDERABLES Final Result [facility] [place] Core Lab [address] [facility], [address] [place] [address] * Extra Blue Top Tube (01/29/2025 1:51 PM CDT) Only the most recent of3 resultswithin the time period is included. Hold Specimen [facility] 01/29/2025 3:01 PM CDT [facility] LAB[facility]ATORY Blood BLOOD SPECIMEN / Unknown Venipuncture / Unknown 01/29/2025 1:51 PM CDT 01/29/2025 2:00 PM CDT us Payal Arriaga DO LAB - BLOOD ORDERABLES Final Result [facility]AT[facility] [place] [place] Core Lab [address] [facility], [address] [address] * (ABNORMAL) RBC and Platelet Morphology (01/29/2025 1:51 PM CDT) Only the most recent of20 resultswithin the time period is included. RBC Morphology Confirmed RBC Indices 01/29/2025 3:38 [...] Address City/[facility]/ZIP Co de Phone Number [facility] LABORATORY [facility] [place] Core Lab [address] [facility], [address] [address] * (ABNORMAL) NT-proBNP (01/29/2025 1:51 PM CDT) NT-proBNP 319(H) 0 - 178 pg/mL 01/29/2025 2:46 PM CDT [facility]ORY Comment: Starting on 08/30/2024, [facility] laboratory began flagging abnormal values for plasma [...] be interpreted with the updated reference intervals. [facility]'s Pediatric (boys and girls) Reference Ranges in pg/mL * 0 up to 3 days: 0 - 21572 3 days up to 1 month: 0 [...] For adult chronic CHF patients according to [place] [employer] (NYHA) Functional Class, the mean NT-proBNP concentration is as following (5th and 95th percentile values respectively displayed in parentheses): Class I: 1016 pg/mL (33-3410) Class II: 1666 pg/mL (103-6567) Class III: 3029 pg/mL (126-06176) Class IV: 3465 pg/mL (148-53884) Clinical thresholds for acute (emergency department) settings: [...] PM CDT 01/29/2025 2:00 PM CDT Payal Latesha Bart DO LAB - BLOOD ORDERABLES Final Result [facility] [place] Core Lab [address] [facility], [address] [address] * EKG 12-lead, tracing only (01/29/2025 1:17 PM CDT) Only the most recent of5 resultswithin the time period is included. Systolic Blood Pressure mmHg RADIOLOGY RESULTS Diastolic Blood Pressure mmHg RADIOLOGY RESULTS Ventricular Rate 79 BPM RAD IOLOGY RESULTS Atrial Rate 79 BPM RADIOLOG Y RESULTS SC Interval 152 ms RADIOLOG Y RESULTS QRS Duration 84 ms RADIOLO GY RESULTS QT 372 ms RADIOLOGY RESULTS QTc 426 ms RADIOLOGY RESULTS P [place] 76 degrees RADIOLOGY RESULTS R AXIS 72 degrees RADIOLOGY RESULTS T [place] 47 degrees RADIOLOGY RESULTS Interpretation ECG Unconfirmed report - interpretation of this ECG is computer generated - see medical record for final interpretation Sinus rhythm Normal ECG Confirmed by - EMERGENCY ROOM, PHYSICIAN ([id number]), photography editor Nivia Willson ([id number]) on 01/29/2025 3:41:55 PM RADIOLOGY RESULTS 01/29/2025 1:17 PM CDT 01/29/2025 3:41 PM CDT us Payal Arriaga DO ECG ORDERABLES Edited Result - Final Performing Organization Address City/[facility]/ZIP Co de Phone Number RADIOLOGY RESULTS * (ABNORMAL) INR (01/25/2025 7:40 PM CDT) Only the most recent of10 resultswithin the time period is included. INR 1.34(H) 0.85 - 1.15 01/25/2025 8:10 PM CDT U LABORATORY PT 16.8(H) 11.8 - 14.8 Seconds 01/25/2025 8:10 PM CDT LABORATORY Blood BLOOD SPECIMEN / Unknown Venipuncture / Unknown 01/25/2025 7:40 PM CDT 01/25/2025 7:52 PM CDT Marguerite Burgess MD LAB - BLOOD ORDERABLES Final Result LABORATORY [facility] [place] Core Lab [address] [facility], [address] * Extra Purple Top Tube (01/23/2025 9:35 PM CDT) Only the most recent of2 resultswithin the time period is included. Hold Specimen [facility] 01/23/2025 10:46 PM CDT LABORATORY Blood BLOOD SPECIMEN / Unknown Venipuncture / Unknown 01/23/2025 9:35 PM CDT 01/23/2025 9:41 PM CDT Leonardo Schroeder MD LAB - BLOOD ORDERABLES Liss l Result Performing Organization Address [facility] de Phone Number LABORATORY [facility] Core Lab [address] [facility], [address] [phone] * Extra Green Top (Dorr Heparin) Tube (01/23/2025 9:35 PM CDT) Only the most recent of2 resultswithin the time period is included. Hold Specimen [facility] 01/23/2025 10:46 PM CDT LABORATORY Blood BLOOD SPECIMEN / Unknown Venipuncture / Unknown 01/23/2025 9:35 PM CDT 01/23/2025 9:40 PM CDT Leonardo Schroeder MD LAB - BLOOD ORDERABLES Liss l Result LABORATORY [facility] Core Lab [address] [facility], [address] [place] [address], [facility] * (ABNORMAL) UA with Microscopic reflex to Culture (01/19/2025 6:32 PM CDT) Only the most recent of4 resultswithin the [...] 01/19/2025 7:33 PM CDT [facility] LAB[facility]ATORY Specific [place] Urine 1.012 1.003 - 1.035 01/19/2025 7:33 [...] 7:33 PM CDT Urine Culture not indicated Marguerite Burgess MD LAB - URINE ORDERABLES Final Result [facility] [place] Core Lab [address] [facility], [address] [place], [place] [phone] * Lactic acid whole blood with 1x repeat in 2 hr when >2 (01/19/2025 6:15 PM CDT) Only the most recent of4 resultswithin the time period is included. Pathologist [facility] Lactic Acid, Initial 0.8 0.7 - 2.0 mmol/L 01/19/2025 6:32 PM CDT [facility] Blood BLOOD SPECIMEN / Unknown Venipuncture / Unknown 01/19/2025 6:15 PM CDT 01/19/2025 6:28 PM CDT Marguerite Burgess MD LAB - BLOOD ORDERABLES Final Result [facility] [place] Core Lab [address] [facility], [address] [place], [place] [address] * Manual Differential (01/19/2025 6:15 PM CDT) Only the most recent of2 resultswithin the time period is included. Pathologist [facility] % Neutrophils 67.5 % 01/19/2025 7:16 PM [...] - BLOOD ORDERABLES Final Result [facility] LABORATORY [facility] [place] [place] Core Lab [address] [facility], [address] [place] [address] * (ABNORMAL) Basic metabolic panel (01/18/2025 9:27 AM CDT) Only the most recent of3 resultswithin the time period is included. Sodium 135 135 - 145 mmol/L 01/18/2025 9:59 AM CDT [facility] - CORE LAB Potassium 4.4 3.4 - 5.3 mmol/L 01/18/2025 9:59 AM CDT [facility]OR[facility] - CORE LAB Chloride 104 98 - 107 mmol/L 01/18/2025 9:59 AM CDT [facility] - CORE LAB Carbon Dioxide (CO2) 19(L) 22 - 29 mmol/L 01/18/2025 9:59 AM CDT [facility] - CORE LAB Anion Gap 12 7 - 15 mmol/L 01/18/2025 9:59 AM CDT [facility] - CORE LAB Urea Nitrogen 8.7 6.0 - 20.0 mg/dL 01/18/2025 9:59 AM CDT [facility] - CORE LAB Creatinine 0.65 0.51 - 0.95 mg/dL 01/18/2025 9:59 AM CDT [facility] - CORE LAB GFR Estimate >90 >60 mL/min/1.7 3m2 01/18/2025 9:59 AM CDT [facility] - CORE LAB Comment:eGFR calculated usin g 2021 CKD-EPI equation. Calcium 9.1 8.8 - 10.4 mg/dL 01/18/2025 9:59 AM CDT [facility]OR[facility] - CORE LAB Glucose 108(H) 70 - 99 mg/dL 01/18/2025 9:59 AM CDT [facility] - CORE LAB Blood STRUCTURE OF RIGHT UPPER LIMB / Unknown Venipuncture / Unknown 01/18/2025 9:27 AM CDT 01/18/2025 9:35 AM CDT us Case Samuel MD LAB - BLOOD ORDERABLES Fi nal Result [facility]OR[facility] - CORE LAB [facility] [place] [address] [place] [address] [facility] [place] [address] * Blood Culture Peripheral blood (BC) Arm, Left (01/12/2025 10:31 PM CDT) Only the most recent of17 resultswithin the time period is included. Pathologist [facility] Culture No Growth 01/17/2025 11:31 PM CDT [facility] IDD LABORATORY Peripheral blood (BC) STRUCTURE OF LEFT UPPER LIMB / Unknown Venipuncture / Unknown 01/12/2025 10:31 PM CDT 01/12/2025 10:37 PM CDT us Payal Arriaga DO LAB - MICRO GENERAL ORDERABLE S Final Result Performing Organization Address City/[facility]/ZIP Co de Phone Number [facility] IDD LABORATORY [facility] Inf. Diseases Diag. Lab [address] [facility], [address] [place] [address] * Procalcitonin (01/12/2025 8:43 PM CDT) Only the most recent of3 resultswithin the time period is included. Procalcitonin 0.11 <0.50 ng/mL 01/12/2025 10:28 PM [...] See Procalcitonin Guidance document for more details. [email or web address]://[email or web address].[email or web address]/files/[email or web address]/[email or web address]-[email or web address]-cvifzwns-on-[email or web address] [email or web address] [email or web address] Factors that may affect PCT levels (not [...] - BLOOD ORDERABLES Final Result [facility] [place] Core Lab [address] [facility], [address] [address] * Adult Type and Screen (01/10/2025 6:35 AM CDT) Only the most recent of3 resultswithin the time period is included. ABO/RH(D) A POS 01/10/2025 3:22 PM CDT UU BLOOD BANK Antibody Screen Negative Negative 01/10/2025 3:22 PM CDT UU BLOOD BANK Comment:Current antibody scr een is negative. Patient has a history of antibody(ies). A delay in compatible red blood cells may occur. SPECIMEN EXPIRATION DATE 01/13/2025 11:59:00 PM CDT 01/10/2025 3:22 PM CDT [facility] BLOOD BANK Blood STRUCTURE OF RIGHT HAND / Unknown Venipuncture / Unknown 01/10/2025 6:35 AM CDT 01/10/2025 6:44 AM CDT us Eden Garcia MD LAB - BLOOD BANK TEST ORDER F inal Result U BLOOD BANK [address] [place] [address], [facility] * (ABNORMAL) Comprehensive metabolic panel (01/08/2025 9:52 PM CDT) Pathologist [facility] Sodium 140 135 - 145 mmol/L 01/08/2025 [...] - BLOOD ORDERABLES Final Result [facility] [place] Core Lab [address] [facility], [address] [place] [address] * Transfuse red blood cells (unit) (01/03/2025 4:45 PM CDT) Kaci Olsen MD BLOOD TRANSFUSION ORDERABLES Final Result * Prepare red blood cells (unit) (01/03/2025 9:31 AM CDT) Blood Component Type Red Blood Cells UR BLOOD BANK Product Code [id number] UR BLOO D BANK Unit Status Transfused UR BLOO D BANK Unit Number [id number] UR B LOOD BANK CROSSMATCH COMPATIBLE UR BLOOD BANK CODING SYSTEM [id number] UR BLO OD BANK ISSUE DATE AND TIME 01/03/2025 12:33:00 PM CDT UR BLOOD BANK UNIT ABO/RH A+ UR BLOOD BANK UNIT TYPE ISBT 6200 UR BL OOD BANK 01/03/2025 9:31 AM CDT Kaci Olsen MD BLOOD BANK PRODUCT ORDERABLE S Final Result UR BLOOD BANK [facility] [place] Blood Components Lab [address] [facility], [address] [place] [address] * (ABNORMAL) Blood Culture ID Panel, PCR (01/03/2025 6:29 AM CDT) Only the most recent of2 resultswithin the time period is included. Pathologist [facility] Enterococcus faecalis Not Detected Not Detected 01/04/2025 [...] IDD LABORATORY Comment:Staphylococcus epide rmidis detected by [employer] BCID2 assay. Final identification and antimicrobial susceptibility [...] by the Infectious Diseases Diagnostic Laboratory at [facility]. This laboratory is certified under the Clinical Laboratory Improvement Amendments of 1988 (CLIA-88) as qualified to perform high complexity clinical laboratory testing. Owen Seaman MD LAB - MICRO GENERAL ORD ERABLES Final Result [facility] IDD LABORATORY [facility] Inf. Diseases Diag. Lab [address] [facility], [address] [place] [address] * ECHO MANUEL (01/02/2025 2:41 PM CDT) LVEF 55-60% CARDIOLOGY RESULTS Anatomical Region Laterality Modality Echocardiography 01/02/2025 2:00 PM CDT Narrative 01/02/2025 2:59 PM CDT [id number]^FRANKIE^SANDRA^Latesha [facility] Echocardiography Laboratory [address] [place] [address] Name: LEW ALANIZ : 1995 Study Date: 01/02/2025 02:00 PM Age: 29 yrs Gender: Female Patient Location: [facility] Reason For Study: Endocarditis History: Thrombus Ordering Physician: SANDRA DAIVD Performed By: Gale Sena BSA: 1.5 m2 [...] Procedure Note Paula Miramontes MD - 01/02/2025 [id number]^FRANKIE^SANDRA^Latesha [facility] [facility] Echocardiography Laboratory [address] [place] [address] Name: LEW ALANIZ : 1995 Study Date: 01/02/2025 02:00 PM Age: 29 yrs Gender: Female Patient Location: [facility] Reason For Study: Endocarditis History: Thrombus Ordering Physician: SANDRA DAVID Performed By: Gale Sena BSA: 1.5 m2 [...] Miramontes MD on 01/02/2025 02:59 PM us Sandra David PA-C CV ECHO ORDERABLES Edited Re sult - Final * (ABNORMAL) CRP inflammation (01/02/2025 8:48 AM CDT) Only the most recent of5 resultswithin the time period is included. [facility] CRP Inflammation 15.50(H) <5.00 mg/L 01/02/2025 9:31 AM CDT LABORATORY Blood BLOOD SPECIMEN / Unknown Venipuncture / Unknown 01/02/2025 8:48 AM CDT 01/02/2025 8:54 AM CDT us Jorge Fitzgerald MD LAB - BLOOD ORDERABLES F inal Result LABORATORY [facility] [place] Core Lab [address] [facility] [address], [address] [place] [address], [facility] * (ABNORMAL) CBC with Platelets (Limited Occurrences) (12/31/2024 6:13 AM CDT) [facility] WBC Count 13.19(H) 4.00 - 11.00 10e3/uL [...] BLOOD ORDERABLES Final Res ult UR LABORATORY [facility] Acute Care Lab [address] [facility], [address] [address] * ECHO LIMITED (12/30/2024 10:53 AM CDT) LVEF 60-65% CARDIOLOGY RESULTS Anatomical Region Laterality Modality Echocardiography 12/30/2024 10:0 6 AM CDT Narrative 12/30/2024 12:41 PM CDT [id number] ^JORGE^MARIAM^LEISA [facility] [facility] Echocardiography Laboratory [address] [place] [address] Name: LEW ALANIZ : 1995 Study Date: 12/30/2024 10:06 AM Age: 29 yrs Gender: Female Patient Location: [facility] Reason For Study: Murmur, Endocarditis Ordering Physician: MARIAM PATEL Performed By: Flaquita Michel RDCS BSA: 1.4 [...] cm Doppler Measurements & Calculations TR max ale: 258.0 cm/sec TR max P.6 mmHg RV S Ale: 14.7 cm/sec Report approved by: Paula Miramontes MD on 12/30/2024 12:41 PM Procedure Note Paula Miramontes MD - 12/30/2024 [id number]^JORGE^MARIAM^LEISA [facility] [facility] Echocardiography Laboratory [address] [place] [address] Name: LEW ALANIZ : 1995 Study Date: 12/30/2024 10:06 AM Age: 29 yrs Gender: Female Patient Location: [facility] Reason For Study: Murmur, Endocarditis Ordering Physician: MARIAM PATEL Performed By: Flaquita Michel RDCS BSA: 1.4 [...] cm Doppler Measurements & Calculations TR max ale: 258.0 cm/sec TR max P.6 mmHg RV S Ale: 14.7 cm/sec Report approved by: Paula Miramontes MD on 12/30/2024 12:41 PM Mariam Patel APRN SHELL[employer]ER CV ECHO ORDERABL ES Edited Result - Final * (ABNORMAL) Manual Differential (12/29/2024 6:24 PM CDT) Only the most recent of3 resultswithin the time period is included. % Neutrophils 50.0 % JARET 12/29/2024 7:53 [...] - BLOOD ORDERABLES Final Result U LABORATORY [facility] Core Lab [address] [facility], [address] [phone] * Creatinine (12/14/2024 3:05 PM CDT) Only the most recent of4 resultswithin the time period is included. Pathologist [facility] Creatinine 0.61 0.51 - 0.95 mg/dL 12/14/2024 5:22 PM CDT LABORATORY GFR Estimate >90 >60 mL/min/1.7 3m2 12/14/2024 5:22 PM CDT LABORATORY Comment:eGFR calculated usin 2020 CKD-EPI equation. Blood [employer] / Unknown Client Draw / Unknown 12/14/2024 3:05 PM CDT 12/14/2024 4:59 PM CDT us Star Galarza MD LAB - BLOOD ORDERABLES Final Re sult LABORATORY [facility] Acute Care Lab [address] Lab (1st floor, no room number) [place] [address] * AST (12/14/2024 3:05 PM CDT) Only the most recent of5 resultswithin the time period is included. AST 45 0 - 45 U/L 12/14/2024 5:2 2 PM CDT LABORATORY Blood CENTRAL VENOUS CATHETER / Unknown Client Draw / Unknown 12/14/2024 3:05 PM CDT 12/14/2024 4:59 PM CDT us Star Galarza MD LAB - BLOOD ORDERABLES Final Re sult LABORATORY [facility] [address] Lab (1st floor, no room number) [place] [address] * ECHO COMPLETE (12/02/2024 10:20 AM CDT) Pathologist [facility] LVEF 60-65% CARDIOLOGY RESULTS Anatomical Region Laterality Modality Echocardiography 12/02/2024 10:0 3 AM CDT Narrative 12/02/2024 12:02 PM CDT [id number]^DEMETRIA^GERARD^[facility] [address] [place], [place] [address] Name: LEW ALANIZ : 1995 Study Date: 12/02/2024 10:03 AM Age: 29 yrs Gender: Female Patient Location: [facility] Reason For Study: Endocarditis, Endocarditis Ordering Physician: GERARD ALEJANDRO Performed By: Jazmín Rees BSA: 1.5 m2 Height: 61 in Weight: 110 lb HR: 70 BP: 102/66 mmHg Procedure Echocardiogram with two-dimensional, color and [...] moderate tricuspid regurgitation. No pericardial effusion is present. Consider a MANUEL for better visualization of the tricuspid valve and the right atrial echodensity. Left Ventricle Left ventricular size is normal. Left ventricular wall thickness is normal. Global and regional left ventricular function is normal with an EF of 60-65%. Right Ventricle The right ventricle is normal size. Global right ventricular function is normal. Atria Normal atrial size. There is a catheter seen in the right atrial cavity. There is an echodensity in the right atrium attached to the lateral wall just below the tricuspid annulus with mobile components, thombus cannot be excluded. Mitral Valve Trace mitral insufficiency is present. Aortic Valve Aortic valve is normal in structure and function. Tricuspid Valve An echodensity is seen on the posterior tricuspid valve leaflet. Consider a MANUEL for better visualization. There is mild to moderate tricuspid regurgitation. The right ventricular systolic pressure is approximated at 21.7 mmHg plus the right atrial pressure. Pulmonic Valve Trace pulmonic insufficiency is present. Vessels The aorta root is normal. The inferior vena cava was normal in size with preserved respiratory variability. Pericardium No pericardial effusion is present. Compared to Previous Study This study was compared with the study from 06/27/24 . Echodensity in the RA was previously present, now is larger. TR has increased in severity. TV endocarditis cannot be excluded. MMode/2D Measurements & Calculations LVOT diam: 2.0 cm LVOT area: 3.3 cm2 Doppler Measurements & Calculations MV E max ale: 93.2 cm/sec MV A max ale: 57.5 cm/sec MV E/A: 1.6 MV dec time: 0.23 sec Ao V2 max: 141.0 cm/sec Ao max P.0 mmHg Ao V2 mean: 96.4 cm/sec Ao mean P.0 mmHg Ao V2 VTI: 28.7 cm MISHA(I,D): 2.9 cm2 MISHA(V,D): 2.9 cm2 LV V1 max P.2 mmHg LV V1 max: 124.0 cm/sec LV V1 VTI: 25.2 cm SV(LVOT): 83.1 ml SI(LVOT): 56.7 ml/m2 PA acc time: 0.13 sec TR max ale: 232.8 cm/sec TR max P.7 mmHg AV Ale Ratio (DI): 0.88 MISHA Index (cm2/m2): 2.0 Report approved by: Paula Miramontes MD on 12/02/2024 12:02 PM Procedure Note Paula Miramontes MD - 12/02/2024 [id number]^DEMETRIA^GERARD^[facility] [address] [place] [id number] Name: LEW ALANIZ : 1995 Study Date: 12/02/2024 10:03 AM Age: 29 yrs Gender: Female Patient Location: [facility] Reason For Study: Endocarditis, Endocarditis Ordering Physician: GERARD ALEJANDRO Performed By: Jazmín Rees BSA: 1.5 m2 Height: 61 in Weight: 110 lb HR: 70 BP: 102/66 mmHg Procedure Echocardiogram with two-dimensional, color and spectral Doppler. Interpretation Summary Global and regional left ventricular function is normal with an EF of60-65%. Global right ventricular function is normal. Normal atrial size. There is a catheter seen in the right atrial cavity.There is an echodensity in the right atrium attached to the lateral wall justbelow the tricuspid annulus with mobile components, thombus cannot beexcluded. An echodensity is seen on the posterior tricuspid valve leaflet,possible vegetation. There is mild to moderate tricuspid regurgitation. No pericardial effusion is present. Consider a MANUEL for better visualization of the tricuspid valve and theright atrial echodensity. Left Ventricle Left ventricular size is normal. Left ventricular wall thickness isnormal. Global and regional left ventricular function is normal with an EF of60-65%. Right Ventricle The right ventricle is normal size. Global right ventricular function is normal. Atria Normal atrial size. There is a catheter seen in the right atrial cavity.There is an echodensity in the right atrium attached to the lateral wall justbelow the tricuspid annulus with mobile components, thombus cannot beexcluded. Mitral Valve Trace mitral insufficiency is present. Aortic Valve Aortic valve is normal in structure and function. Tricuspid Valve An echodensity is seen on the posterior tricuspid valve leaflet. Considera MANUEL for better visualization. There is mild to moderate tricuspid regurgitation. The right ventricular systolic pressure is approximated at21.7 mmHg plus the right atrial pressure. Pulmonic Valve Trace pulmonic insufficiency is present. Vessels The aorta root is normal. The inferior vena cava was normal in size with preserved respiratory variability. Pericardium No pericardial effusion is present. Compared to Previous Study This study was compared with the study from 06/27/24 . Echodensity in the RAwas previously present, now is larger. TR has increased in severity. TV endocarditis cannot be excluded. MMode/2D Measurements & Calculations LVOT diam: 2.0 cm LVOT area: 3.3 cm2 Doppler Measurements & Calculations MV E max ale: 93.2 cm/sec MV A max ale: 57.5 cm/sec MV E/A: 1.6 MV dec time: 0.23 sec Ao V2 max: 141.0 cm/sec Ao max P.0 mmHg Ao V2 mean: 96.4 cm/sec Ao mean P.0 mmHg Ao V2 VTI: 28.7 cm MISHA(I,D): 2.9 cm2 MISHA(V,D): 2.9 cm2 LV V1 max P.2 mmHg LV V1 max: 124.0 cm/sec LV V1 VTI: 25.2 cm SV(LVOT): 83.1 ml SI(LVOT): 56.7 ml/m2 PA acc time: 0.13 sec TR max ale: 232.8 cm/sec TR max P.7 mmHg AV Ale Ratio (DI): 0.88 MISHA Index (cm2/m2): 2.0 Report approved by: Paula Miramontes MD on 12/02/2024 12:02 PM us Gerard Alejandro PA-C CV ECHO ORDERABLES Edited R esult - Final * Extra Red Top Tube (LAB USE ONLY) (11/15/2024 11:45 AM CDT) [facility] Hold Specimen [facility] 11/15/2024 2:46 PM CDT LABORATORY Blood CENTRAL VENOUS CATHETER / Unknown Client Draw / Unknown 11/15/2024 11:45 AM CDT 11/15/2024 1:33 PM CDT us Star Galarza MD LAB - BLOOD ORDERABLES Final Re sult LABORATORY [facility] Lab [address] Lab (1st floor, no room number) [place] [address] * Single Lumen PICC Placement (11/14/2024 1:20 PM CDT) Narrative Elissa Celaya RN - 11/14/2024 1:20 PM CDT Eilssa Celaya RN 11/14/2024 2:10 PM [facility] Single Lumen PICC Placement Date/Time: 11/14/2024 1:20 PM Performed by: Elissa Celaya RN Authorized by: Jose Pedro MD Indications: vascular access UNIVERSAL PROTOCOL Site Marked: Yes Prior Images Obtained and Reviewed: Yes Required items: Required blood products, implants, devices and special equipment available Patient identity confirmed: Verbally with patient, arm band, provided demographic data and hospital-assigned identification number NA - No sedation, light sedation, or local anesthesia Confirmation Checklist: Patient's identity using two indicators, relevant allergies, procedure was appropriate and matched the consent or emergent situation and correct equipment/implants were available Time out: Immediately prior to the procedure a time out was called (Fannie Garcia RN) [place] Protocol: the Joint Commission [place] Protocol was followed Preparation: Patient was prepped and draped in usual sterile fashion ANESTHESIA Anesthesia: Local infiltration Local Anesthetic: Lidocaine 1% without epinephrine Anesthetic Total (mL): 2.5 SEDATION Patient Sedated: No Preparation: skin prepped with ChloraPrep Skin prep agent: skin prep agent completely dried prior to procedure Sterile barriers: maximum sterile barriers were used: cap, mask, sterile gown, sterile gloves, and large sterile sheet Hand hygiene: hand hygiene performed prior to central venous catheter insertion Type of line used: PICC Catheter type: single lumen Lumen type: power PICC and valved Catheter size: 4 Fr Brand: [employer] Lot number: [id number] Placement method: venipuncture, MST, ultrasound and tip navigation system Number of attempts: 1 Difficulty threading catheter: yes Successful placement: yes Orientation: right Catheter to Vein (%): 30 Location: brachial vein (medial) Tip Location: SVC/RA Junction Arm circumference: adults 10 cm Extremity circumference: 22 Visible catheter length: 2 Total catheter length: 39 Dressing and securement: additional securement method (see comment), alcohol impregnated caps, blood cleaned with CHG, chlorhexidine disc applied, dressing applied, securement device, site cleansed, sterile dressing applied, subcutaneous anchor securement system and transparent dressing Post procedure assessment: blood return through all ports, free fluid flow and placement verified by 3CG technology PROCEDURE CHG bathing and linen change completed prior to line insertion. Pt very anxious about the anticipated pain related to procedure due to her having had multiple PICC lines in the past. Medial brachial vein accessed without difficulty X 1 poke. Wire inserted smoothly however catheter difficult to get past shoulder. Position changes and maneuvers completed and catheter eventually placed down to SVC. 3CG tip confirmation utlized and PICC tip is at CAJ and ready for use. Pt teary during procedure but tolerated well without complaints during insertion. After procedure end pt stated that hurt the entire time and I felt everything. VAT RN gave emotional support and tried to distract pt and reassure her procedure was over and PICC line is ready for use. This patient's catheter is secured with SecurAcath instead of a traditional suture or adhesive based securement. This is a subcutaneous anchor securement system (aka MICHELLE or SecurAcath) that holds the catheter just below the skin with nitinol feet and a friction fit bolting machine operator around the catheter. It can stay with the catheter until the catheter is removed. Do not open, change or remove the SecurAcath. SecurAcath may be disinfected during a dressing change, but do not open or remove it. SecurAcath acts like a hinge - lift, clean 360 degrees around, let dry and apply new dressing. SecurAcath is compatible with all dressings and antiseptic agents. Ensure the wings of the catheter and SecurAcath are completely under the boarder of the dressing. SecurAcath is MRI safe to 3T, see IFU for details. A Statlock is not necessary when SecurAcath is present. Patients can go to MRI with SecurAcath device in place When the catheter is indicated for removal, enter Nursing to Consult for Vascular Access Care order in [facility], watch the removal video on SharePoint, or call for training if you have not removed before. 24 hour SecurAcath Clinical Education and Support [phone] Disposal: sharps and needle count correct at the end of procedure, needles and guidewire disposed in sharps container Patient Tolerance: Patient tolerated the procedure well with no immediate complications us Jose Pedro MD PROCEDURE/MINOR SURGICAL ORDERAB LES Final Result * ANE AIRWAY SUPRAGLOTTIC PERFORMABLE (11/10/2024 5:34 PM CDT) Narrative Tatiana Lan APRN MICROBIOLOGICAL ANALYST - 11/10/2024 5:34 PM CDT Tatiana Lan APRN MICROBIOLOGICAL ANALYST 11/10/2024 5:34 PM Airway Patient location during procedure: OR Staff - MICROBIOLOGICAL ANALYST: Tatiana Lan APRN MICROBIOLOGICAL ANALYST Performed By: CRNAIndications and Patient Condition Indications for airway management: palma-procedural Induction type:intravenous Mask difficulty assessment: 1 - vent by mask Final Airway Details Final airway type: supraglottic airway Supraglottic Airway Details Type: LMA Brand: LMA Unique LMA size: 3 Post intubation assessment Placement verified by: capnometry, equal breath sounds and chest rise Number of attempts at approach: 1 Number of other approaches attempted: 0 Secured with: tape Ease of procedure: easy Dentition: Intact and Unchanged Lenin Huerta MD [place] ANESTHESIA Final Result * Foreign Body Aerobic Bacterial Culture Routine (11/10/2024 5:34 PM CDT) Only the most recent of2 resultswithin the time period is included. Culture No Growth JARET 11/12/2024 2:08 PM CDT [facility] Foreign Body CATHETER TIP / Unknown Non-blood Collection / Unknown 11/10/2024 5:34 PM CDT 11/10/2024 6:25 PM CDT Salvador Contreras MD LAB - MICRO GENERAL ORDERABL ES Final Result Performing Organization Address [facility] Co de Phone Number [facility] Inf. Diseases Diag. Lab [address] [facility], [address] [address] * Anaerobic Bacterial Culture Routine (11/10/2024 5:34 PM CDT) Only the most recent of2 resultswithin the time period is included. Culture No anaerobic organisms isolated JARET 11/17/2024 8:06 AM CDT [facility] Foreign Body CATHETER TIP / Unknown Non-blood Collection / Unknown 11/10/2024 5:34 PM CDT 11/10/2024 9:06 PM CDT Narrative [facility] - 11/17/2024 8:06 AM CDT This specimen was not received in an anaerobic transport container, thus the absence or quantity of anaerobic organisms in this culture may not be rental representative of the anaerobic organisms present in the specimen. Salvador Contreras MD LAB - MICRO GENERAL ORDERABL ES Final Result Performing Organization Address City/[facility]/ZIP Co de Phone Number [facility] Inf. Diseases Diag. Lab [address] [facility], [address] [address] * Urine Creatinine for Drug Screen Panel (11/09/2024 10:48 AM CDT) Creatinine Urine for Drug Screen 77 mg/dL 11/09/2024 2:39 PM CDT LABORATORY Comment:The reference range has not been established for creatinine in random urines. The results should be integrated into the clinical context for interpretation. Urine URINE SPECIMEN OBTAINED BY CLEAN CATCH PROCEDURE / Unknown Non-blood Collection / Unknown 11/09/2024 10:48 AM CDT 11/09/2024 11:03 AM CDT us Nathaly Beyer DO LAB - URINE ORDERABLE S Final Result [facility] Lab [address] [facility] Lab (1st floor, no room number) [place] [address] * THC Confirmation Quantitative Urine (11/09/2024 10:48 AM CDT) THC Metabolite 394 ng/mL 11/15/2024 9:18 AM CDT [facility] Comment: Positive cuttoff: 5 ng/mL Quantitative result is marijuana metabolite measured as [id number]-[id number] (carboxy-THC) by liquid chromatography with mass spectrometry (LC-MS/MS). This test cannot distinguish between prescribed or non-prescribed forms of THC nor can it distinguish between active or passive use. Results are reported to limit of quantitation of the assay. This test is for medical purposes only. Not valid for forensic use. A chain of custody was not used. THC/Creatinine Ratio 512 ng/mg Creat 11/15/2024 9:18 AM CDT [facility] Urine URINE SPECIMEN OBTAINED BY CLEAN CATCH PROCEDURE / Unknown Non-blood Collection / Unknown 11/09/2024 10:48 AM CDT 11/09/2024 11:27 AM CDT Narrative [facility] - 11/15/2024 9:18 AM CDT This test was developed and its performance characteristics determined by the [facility], [facility] Laboratory. It has not been cleared or approved by the FDA. The laboratory is regulated under CLIA as qualified to perform high-complexity testing. This test is used for clinical purposes. It should not be regarded as investigational or for research. Nathaly Beyer DO LAB - URINE ORDERABLE S Final Result [facility] [address] [facility], [address] [place] [id number] * Opiates, Urn, Quant (11/09/2024 10:48 AM CDT) Pathologist [facility] Hydrocodone, Urine <20 ng/mL 2024 6:58 PM CDT [facility] Hydromorphone, Urine 1458 ng/mL 10/25 6:58 PM CDT [facility] Codeine, Urine <20 ng/mL 11/13/2024 6:58 PM CDT [facility] Morphine, Urine <20 ng/mL 6:58 PM CDT [facility] 6-acetylmorphine, Urn, Quant <10 ng/mL 11/13/2024 6:58 PM CDT [facility] Comment: INTERPRETIVE INFORMATION: Opiates, Urine, Quantitative Methodology: Quantitative Liquid Chromatography-Tandem Mass Spectrometry Positive cutoff: 20 ng/mL except as specified below 6-acetylmorphine 10 ng/mL For medical purposes only; not valid for forensic use. Identification of specific drug(s) taken by specimen donor is problematic due to common metabolites, some of which are prescription drugs themselves. The absence of expected drug(s) and/or drug metabolite(s) may indicate non-compliance, inappropriate timing of specimen collection relative to drug administration, poor drug absorption, diluted/adulterated urine, or limitations of testing. All drug analytes covered are in the non-glucuronidated (free) forms. The concentration value must be greater than or equal to the cutoff to be reported as positive. A very small amount of an unexpected drug analyte in the presence of a large amount of an expected drug analyte may reflect pharmaceutical impurity. Interpretive questions should be directed to the laboratory. This test was developed and its performance characteristics determined by [facility]. It has not been cleared or approved by the [place] Food and Drug Administration. This test was performed in a CLIA certified laboratory and is intended for clinical purposes. Noroxycodone, Urn, Quant <20 ng/mL 11/13/2024 6:58 PM CDT [facility] Oxycodone, Urn, Quant <20 ng/mL 11/13/2024 6:58 PM CDT [facility] Oxymorphone, Urn, Quant <20 ng/mL 11/13/2024 6:58 PM CDT [facility] Norhydrocodone, Urn, Quant <20 ng/mL 11/13/2024 6:58 PM CDT [facility] Comment: Performed By: [facility] [address] [place] [address] Gun Striper: Devon Healy MD, PhD CLIA Number: [id number] Noroxymorphone, Urn, Quant <20 ng/mL 11/13/2024 6:58 PM CDT [facility] Urine URINE SPECIMEN OBTAINED BY CLEAN CATCH PROCEDURE / Unknown Non-blood Collection / Unknown 11/09/2024 10:48 AM CDT 11/09/2024 11:27 AM CDT Nathaly Beyer DO LAB - URINE ORDERABLE S Final Result [address] [address], [facility] [phone] * (ABNORMAL) Urine Drug Screen Panel (11/09/2024 10:48 AM CDT) [facility] Amphetamines Urine Screen Negative Screen Negative 11/09/2024 11:27 AM CDT LABORATORY Comment:Cutoff for a negativ e amphetamine is less than 500 ng/mL. Barbituates Urine Screen Negative Screen Negative 11/09/2024 11:27 AM CDT LABORATORY Comment:Cutoff for a negativ e barbiturate is less than 200 ng/mL. Benzodiazepine Urine Screen Negative Screen Negative 11/09/2024 11:27 AM CDT LABORATORY Comment:Cutoff for a negativ e benzodiazepine is less than 100 ng/mL. Cannabinoids Urine Screen Positive(A) Screen Negative 11/09/2024 11:27 AM CDT LABORATORY Comment: Cutoff for a positive cannabinoid is 50 ng/mL or greater. This is an unconfirmed screening result to be used for medical purposes only. Cocaine Urine Screen Negative Screen Negative 11/09/2024 11:27 AM CDT LABORATORY Comment:Cutoff for a negativ e cocaine is less than 300 ng/mL. Fentanyl Qual Urine Screen Negative Screen Negative 11/09/2024 11:27 AM CDT [facility]AT[facility] Comment:Cutoff for negative fentanyl is less than 5 ng/mL. Opiates Urine Screen Positive(A) Screen Negative 11/09/2024 11:27 AM CDT LABORATORY Comment: Cutoff for a positive opiate is 300 ng/mL or greater. This is an unconfirmed screening result to be used for medical purposes only. PCP Urine Screen Negative Screen Negative 11/09/2024 11:27 AM CDT LABORATORY Comment:Cutoff for a negativ e PCP is less than 25 ng/mL. Urine URINE SPECIMEN OBTAINED BY CLEAN CATCH PROCEDURE / Unknown Non-blood Collection / Unknown 11/09/2024 10:48 AM CDT 11/09/2024 11:03 AM CDT us Nathaly Beyer DO LAB - URINE ORDERABLE S Final Result [facility] [address] Lab (1st floor, no room number) [place] [address] * (ABNORMAL) Lactate Dehydrogenase (11/09/2024 10:30 AM CDT) Lactate Dehydrogenase 278(H) 0 - 250 U/L 11/09/2024 10:56 AM CDT LABORATORY Blood STRUCTURE OF RIGHT UPPER LIMB / Unknown Venipuncture / Unknown 11/09/2024 10:30 AM CDT 11/09/2024 10:35 AM CDT us Deborah Allen MD LAB - BLOOD ORDERABLES Final Res ult [facility] LABORATORY [facility] Lab [address] Lab (1st floor, no room number) [place] [address], [facility] * (ABNORMAL) Hepatic panel (11/09/2024 7:25 AM CDT) Protein Total 7.0 6.4 - 8.3 g/dL 11/09/2024 8:16 AM CDT [facility]AT[facility] Albumin 3.6 3.5 - 5.2 g/dL 11/09/2024 8:16 AM CDT [facility] LAB[facility]ATORY Bilirubin Total 1.0 <=1.2 mg/dL 11/09/2024 8:16 AM CDT [facility]AT[facility] Alkaline Phosphatase 103 40 - 150 U/L 11/09/2024 8:16 AM CDT [facility] AST 31 0 - 45 U/L 11/09/2024 8:16 AM CDT [facility] ALT 13 0 - 50 U/L 11/09/2024 8:16 AM CDT [facility] Bilirubin Direct 0.32(H) 0.00 - 0.30 mg/dL 11/09/2024 8:16 AM CDT [facility] Comment:As of 24, refer ence ranges and trending lines may vary depending on the testing location. Blood STRUCTURE OF RIGHT HAND / Unknown Venipuncture / Unknown 11/09/2024 7:25 AM CDT 11/09/2024 7:48 AM CDT us Nathaly Beyer DO LAB - BLOOD ORDERABLE S Final Result LABORATORY [facility] [address] [facility], no room number) [place] [address], [facility] * (ABNORMAL) Ferritin (11/09/2024 7:25 AM CDT) Ferritin 2,574(H) 6 - 175 ng/mL 11/09/2024 12:31 PM CDT [facility] Blood STRUCTURE OF RIGHT HAND / Unknown Venipuncture / Unknown 11/09/2024 7:25 AM CDT 11/09/2024 7:48 AM CDT us Deborah Allen MD LAB - BLOOD ORDERABLES Final Res ult [facility] [place] [facility] [address] [facility] [address], [address] [place] [address], [place] from Last 3 Months Insurance [place] Advance Directives For more information, please contact: [phone] * Full Code (Latest Code Status on File) Date Activated Date Inactivated Comments 01/29/2025 5:22 PM 01/30/2025 11:06 AM All basic a nd advanced life-sustaining interventions are performed as appropriate Question Answer Comments Code status determined by: Discussion with patie nt/ legal decision maker * Full Code Date Activated Date Inactivated Comments 01/10/2025 1:27 AM 01/11/2025 12:16 PM All basic a nd advanced life-sustaining interventions are performed as appropriate Question Answer Comments Code status determined by: Discussion with patie nt/ legal decision maker * Full Code Date Activated Date Inactivated Comments 01/02/2025 2:32 PM 01/04/2025 1:46 PM All basic and advanced life-sustaining interventions are performed as appropriate Question Answer Comments Code status determined by: Discussion with patie nt/ legal decision maker * Full Code Date Activated Date Inactivated Comments 12/29/2024 10:25 PM 12/31/2024 4:41 PM All basic and advanced life-sustaining interventions are performed as appropriate Question Answer Comments Code status determined by: Discussion with patie nt/ legal decision maker * Full Code Date Activated Date Inactivated Comments 12/08/2024 9:39 PM 12/10/2024 4:18 PM All basic an d advanced life-sustaining interventions are performed as appropriate Question Answer Comments Code status determined by: Discussion with patie nt/ legal decision maker Care Teams Executive Chef Relationship Specialty Start Date End Date Veronica Joseph MD [address] [place] [address] PCP - General Family Medicine 06/18/24 Roxy Mor Medical Student 04/03/24 Case Samuel MD 420 [facility] 484, RO[address] [place], [place] [address] Assigned Pediatric Specialist Provider 05/18/24 Juhi Benson, RN Specialty Recycling Sorter Hematology & Oncology 05/29/24 Olinda Vora APRN SHELLACKER [address] [place], [place] 403195 Assigned Cancer Care Provider 08/16/24 Stiven Stanley LP [address] [place] [address] Psychologist PSYCHOLOGIST CLINICAL 10/25/24 Star Galarza MD [facility] [address] [facility] [address] [place], [place] [address] Home Infusion Following Provider Infectious Diseases 11/07/24
--- OUTSIDE RECORDS SUMMARY | 2025-02-09 01:54 | XMS_ITS | Encounter Summary ---
Author Organization [place] Address [address] [place] [address]. 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 Gender Identity Not on file Sexual Orientation Not on file documented as of this encounter Plan of Treatment Upcoming Encounters Date Type Department Care Team (Late st Contact Info) Description 02/15/2025 10:30 AM CDT Lab [facility] Cancer [address] [address] Olinda Vora APRN MANOMETER TECHNICIAN [address] [place] [address] [id number] 02/15/2025 11:00 AM CDT Oncology Visit [facility] Cancer [address] [phone] Olinda Vora APRN MANOMETER TECHNICIAN [address] [place] [address] [phone] 04/09/2025 3:00 PM KNIFE CUTTER Lab [facility] Cancer [address] [address] Case Samuel MD [address] [place] [address] 484, [address] [place], [place] [phone] 04/09/2025 3:30 PM KNIFE CUTTER Oncology Visit [facility] Clinic 909 [place] [address] Case Samuel MD 420 [facility] 484, RO[address] [place], [place] [address] documented as of this encounter Goals Goal [...] on filedocumented in this encounter Care Teams Lead Presser Relationship Specialty Start Date End Date Veronica Joseph MD [address] [place] [address] PCP - General Family Medicine 06/18/24 Mor Ramsey Medical Student 04/03/24 Case Samuel MD [address] [place] [address] 484, RO[address] [place], [place] [address] Assigned Pediatric Specialist Provider 05/18/24 Juhi Benson, RN Specialty [employer] Former Brace End Hematology & Oncology 05/29/24 Olinda Vora APRN MANOMETER TECHNICIAN [address] [place] [address] Assigned Cancer Care Provider 08/16/24 Stiven Stanley LP 15[address] [facility] [place] [address] Psychologist PSYCHOLOGIST CLINICAL 10/25/24 Star Galarza MD [facility] [address] [facility] . [address] [place] [address] Home Infusion Following Provider Infectious Diseases 11/07/24 documented as of this encounter
--- OUTSIDE RECORDS SUMMARY | 2025-02-09 01:55 | XMS_ITS | Encounter Summary ---
Author Organization [place] Address [address] [place] [address]. [place] [address] Care Team Providers Care Magazine Writer Name Role Phone Roxy Mor Unavailable Unavailable Case Samuel MD Unavailable [phone] Juhi Benson RN Unavailable Unavailable Veronica Joseph MD Primary Care Provider [phone] Olinda Vora APRN RING SPINNER Unavailable [phone] Stiven Stanley LP Unavailable Star Galarza MD Unavailable [phone] Encounter Details Date Type Department Care Team (Latest Contact Info) Description 01/12/2025 Travel Social History Tobacco Use Types Packs/Day [...] in an overnight penitentiary, or couch-surfing.) Yes 11/09/2024 Are you worried [...] on file 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 Gender Identity Not on file Sexual Orientation Not on file documented as of this encounter Plan of Treatment Upcoming Encounters Date Type Department Care Team (Late st Contact Info) Description 02/15/2025 10:30 AM CDT Lab [facility] Cancer [address] [address] Olinda Vora APRN RING SPINNER [address] [place] [address] [phone] 02/15/2025 11:00 AM CDT Oncology Visit [facility] Cancer [address] [phone] Olinda Vora APRN RING SPINNER [address] [place] [address] 493805 04/09/2025 3:00 PM METALLOGRAPHIC TECHNICIAN Lab [facility] Cancer [address] [address] Case Samuel MD [address] [place] [address] 484, [address] [place], [place] [phone] 04/09/2025 3:30 PM METALLOGRAPHIC TECHNICIAN Oncology Visit [facility] Cancer Clinic 909 [place] [address] Case Samuel MD 420 [facility] 484, [address] [place], [place] [address] documented as of this encounter Goals Goal [...] on filedocumented in this encounter Care Teams Magazine Writer Relationship Specialty Start Date End Date Veronica Joseph MD [address] [place] [address] PCP - General Family Medicine 06/18/24 Mor Ramsey Medical Student 04/03/24 Case Samuel MD [address] [place] [address] 484, [address] [place], [place] [address] Assigned Pediatric Specialist Provider 05/18/24 Juhi Benson, RN Specialty Microsoft Windows Engineer Hematology & Oncology 05/29/24 Olinda Vora APRN RING SPINNER [address] [place] [address] Assigned Cancer Care Provider 08/16/24 Stiven Stanley LP 1575 [facility] [place] [address] Psychologist PSYCHOLOGIST CLINICAL 10/25/24 Star Galarza MD [facility] [address] [facility] [address] [place] [address] Home Infusion Following Provider Infectious Diseases 11/07/24 documented as of this encounter
--- OUTSIDE RECORDS SUMMARY | 2025-02-09 01:55 | XMS_ITS | Encounter Summary ---
Author Organization [place] Address [address] [place] [address]. [place] [address] Care Team Providers Care Director International Name Role Phone Roxy Mor Unavailable Unavailable Case Samuel MD Unavailable [phone] Juhi Benson RN Unavailable Unavailable Veronica Joseph MD Primary Care Provider [phone] Olinda Vora APRN VP HR DIVERSITY Unavailable [phone] Stiven Stanley LP Unavailable Star Galarza MD Unavailable [phone] Encounter Details Date Type Department Care Team (Latest Contact Info) Description 01/19/2025 Travel Social History Tobacco Use Types Packs/Day [...] file Legal Sex Female 8:25 AM STOCK MOVER Gender Identity Not on file Sexual Orientation Not on file documented as of this encounter Plan of Treatment Upcoming Encounters Date Type Department Care Team (Late st Contact Info) Description 02/15/2025 10:30 AM CDT Lab [facility] Cancer [address] [address] Olinda Vora APRN VP HR DIVERSITY [address] [place] [address] 02/15/2025 11:00 AM CDT Oncology Visit [facility] Cancer [address] [phone] Olinda Vora APRN VP HR DIVERSITY [address] [place] [address] [phone] 04/09/2025 3:00 PM STOCK MOVER Lab [facility] Cancer [address] [address] Case Samuel MD [address] [place] [address] 484, [address] [place], [place] [phone] 04/09/2025 3:30 PM STOCK MOVER Oncology Visit [facility] Clinic 909 [place] [address] Case Samuel MD 420 [facility] 484, [address] [place], [place] [address] documented as of this encounter Goals Goal [...] filedocumented in this encounter Care Teams Director International Relationship Specialty Start Date End Date Veronica Joseph MD [address] [place] [address] PCP - General Family Medicine 06/18/24 Mor Ramsey Medical Student 04/03/24 Case Samuel MD [address] [place] [address] 484, RO[address] [place], [place] 57[address] Assigned Pediatric Specialist Provider 05/18/24 Juhi Benson, RN Specialty Ios Architect Hematology & Oncology 05/29/24 Olinda Vora APRN VP HR DIVERSITY [address] [place] [address] Assigned Cancer Care Provider 08/16/24 Stiven Stanley LP 1575 [facility] [place] [address] Psychologist PSYCHOLOGIST CLINICAL 10/25/24 Star Galarza MD [facility] [address] [facility] . [address] [place] [address] Home Infusion Following Provider Infectious Diseases 11/07/24 documented as of this encounter
--- OUTSIDE RECORDS SUMMARY | 2025-02-09 01:55 | XMS_ITS | Encounter Summary ---
Author Organization [place] Address [address] [place] [address]. [place] [address] Care Team Providers Care Powerhouse Helper Name Role Phone RoxyElvirac Unavailable Unavailable Case Samuel MD Unavailable [phone] Juhi Benson RN Unavailable Unavailable Veronica Joseph MD Primary Care Provider [phone] Olinda Vora APRN APPLICATION SECURITY ARCHITECT Unavailable [phone] Stiven Stanley LP Unavailable Star Galarza MD Unavailable [phone] Encounter Details Date Type Department Care Team (Late st Contact Info) Description 01/18/[address] [facility] Clinic 9[address] [place] [address] Tatiana Cohen, APPLICATION SECURITY ARCHITECT [address] [place] [address] [facility] 480 [place] [address] Social History Tobacco Use Types [...] on file Legal Sex Female 8:25 AM CHRISTMAS TREE FARM MANAGER Gender Identity Not on file Sexual Orientation Not on file documented as of this encounter Plan of Treatment Upcoming Encounters Date Type Department Care Team (Late st Contact Info) Description 02/15/2025 10:[address] [facility] Cancer [address] [address] Olinda Vora APRN APPLICATION SECURITY ARCHITECT [address] [place] [address] [id number] 02/15/2025 11:00 AM CDT Oncology Visit [facility] Cancer [address] [phone] Olinda Vora APRN APPLICATION SECURITY ARCHITECT [address] [place] [address] [phone] 04/09/2025 3:00 PM CHRISTMAS TREE FARM MANAGER Lab [facility] Cancer [facility] 909 [place] [phone] Case Samuel MD [address] [place] [address] 484, RO[address] [place] [address] 04/09/2025 3:30 PM CHRISTMAS TREE FARM MANAGER Oncology Visit [facility] Cancer [facility] 909 [place] [phone] Case Samuel MD 420 [facility] 484, [address] [place], [place] [address] documented as of this encounter Goals Goal [...] filedocumented in this encounter Care Teams Powerhouse Helper Relationship Specialty Start Date End Date Veronica Joseph MD [address] [place] [address] PCP - General Family Medicine 06/18/24 Mor Ramsey Medical Student 04/03/24 Case Samuel MD [address] [place] [address] 484, RO[address] [place] [address] Assigned Pediatric Specialist Provider 05/18/24 Juhi Benson, RN Specialty Public Health Assistant Hematology & Oncology 05/29/24 Olinda Vora APRN APPLICATION SECURITY ARCHITECT 909 [place] [address] Assigned Cancer Care Provider 08/16/24 Stiven Stanley LP [address] [facility] [place] [address] Psychologist PSYCHOLOGIST CLINICAL 10/25/[address] Star Galarza MD [facility] [address] [place] [address] Home Infusion Following Provider Infectious Diseases 11/07/24 documented as of this encounter
--- OUTSIDE RECORDS SUMMARY | 2025-02-09 01:55 | XMS_ITS | Encounter Summary ---
Author Organization [facility] Address [address] [place] [address]. [place] [address] Care Team Providers Care Linux Kernel Engineer Name Role Phone Roxy Mor Unavailable Unavailable Case Samuel MD Unavailable [phone] Juhi Benson RN Unavailable Unavailable Veronica Joseph MD Primary Care Provider [phone] Olinda Vora APRN CHANGE MANAGEMENT ADMINISTRATOR Unavailable [phone] Stiven Stanley LP Unavailable Star Galarza MD Unavailable [phone] Encounter Details Date Type Department Care Team (Latest Contact Info) Description 01/17/2025 Travel Social History Tobacco Use Types Packs/Day [...] file Legal Sex Female 8:25 AM ADMINISTRATIVE PROGRAM SPECIALIST Gender Identity Not on file Sexual Orientation Not on file documented as of this encounter Plan of Treatment Upcoming Encounters Date Type Department Care Team (Late st Contact Info) Description 02/15/2025 10:30 AM CDT Lab [facility] Cancer [address] [address] Olinda Vora APRN CHANGE MANAGEMENT ADMINISTRATOR [address] [place] [address] 548995 02/15/2025 11:00 AM CDT Oncology Visit [facility] Cancer [address] [phone] Olinda Vora APRN CHANGE MANAGEMENT ADMINISTRATOR [address] [place] [address] [phone] 04/09/2025 3:00 PM ADMINISTRATIVE PROGRAM SPECIALIST Lab [facility] Cancer [address] [address] Case Samuel MD [address] [place] [address] 484, RO[address] [place], [place] [phone] 04/09/2025 3:30 PM ADMINISTRATIVE PROGRAM SPECIALIST Oncology Visit [facility] Clinic 909 [place] [address] Case Samuel MD 420 [facility] 484, RO[address] [place], [place] [address] documented as of this encounter Goals Goal [...] on filedocumented in this encounter Care Teams Linux Kernel Engineer Relationship Specialty Start Date End Date Veronica Joseph MD [address] [place] [address] PCP - General Family Medicine 06/18/24 Mor Ramsey Medical Student 04/03/24 Case Samuel MD [address] [place] [address] 484, [address] [place], [place] 9[address] Assigned Pediatric Specialist Provider 05/18/24 Juhi Benson, RN Specialty Lan Manager Hematology & Oncology 05/29/24 Olinda Vora APRN CHANGE MANAGEMENT ADMINISTRATOR [address] [place] [address] Assigned Cancer Care Provider 08/16/24 Stiven Stanley LP [address] [facility] [place] [address] Psychologist PSYCHOLOGIST CLINICAL 10/25/24 Star Galarza MD [facility] [address] [facility] . [address] [place] [address] Home Infusion Following Provider Infectious Diseases 11/07/24 documented as of this encounter
--- OUTSIDE RECORDS SUMMARY | 2025-02-09 01:55 | XMS_ITS | Encounter Summary ---
Author Organization [facility] Address [address] [place] [address]. [place] [address] Care Team Providers Care X Ray Technician Name Role Phone Roxy Mor Unavailable Unavailable Case Samuel MD Unavailable [phone] Juhi Benson RN Unavailable Unavailable Veronica Joseph MD Primary Care Provider [phone] Olinda Vora APRN TIER IN Unavailable [phone] Stiven Stanley LP Unavailable Star Galarza MD Unavailable [phone] Encounter Details Date Type Department Care Team (Latest Contact Info) Description 01/13/2025 Travel Social History Tobacco Use Types Packs/Day [...] file Legal Sex Female 8:25 AM MANAGER CONTRACT Gender Identity Not on file Sexual Orientation Not on file documented as of this encounter Plan of Treatment Upcoming Encounters Date Type Department Care Team (Late st Contact Info) Description 02/15/2025 10:30 AM CDT Lab [facility] Cancer [address] [address] Olinda Vora APRN TIER IN [address] [place] [address] [phone] 02/15/2025 11:00 AM CDT Oncology Visit [facility] [address] [phone] Olinda Vora APRN TIER IN [address] [place] [address] [phone] 04/09/2025 3:00 PM MANAGER CONTRACT Lab [facility] Cancer [address] [address] Case Samuel MD [address] [place] [address] 484, RO[address] [place], [place] [phone] 04/09/2025 3:30 PM MANAGER CONTRACT Oncology Visit [facility] Clinic 909 [place] [address] Case Samuel MD 420 [facility] 484, RO[address] [place], [place] [address] documented as of this encounter Goals Goal [...] on filedocumented in this encounter Care Teams X Ray Technician Relationship Specialty Start Date End Date Veronica Joseph MD [address] [place] [address] PCP - General Family Medicine 06/18/24 Mor Ramsey Medical Student 04/03/24 Case Samuel MD [address] [place] [address] 484, RO[address] [place], [place] 0[address] Assigned Pediatric Specialist Provider 05/18/24 Juhi Benson, RN Specialty Potato Chip Sorter Hematology & Oncology 05/29/24 Olinda Vora APRN TIER IN [address] [place] [address] Assigned Cancer Care Provider 08/16/24 Stiven Stanley LP 1575 [facility] [place] [address] Psychologist PSYCHOLOGIST CLINICAL 10/25/24 Star Galarza MD [facility] [address] [facility] [address] [place] [address] Home Infusion Following Provider Infectious Diseases 11/07/24 documented as of this encounter
--- OUTSIDE RECORDS SUMMARY | 2025-02-09 01:55 | XMS_ITS | Encounter Summary ---
Author Organization [place] Address [address] [place] [address]. [place] [address] Care Team Providers Care Senior Telecommunications Engineer Name Role Phone Roxy Mor Unavailable Unavailable Case Samuel MD Unavailable [phone] Juhi Benson RN Unavailable Unavailable Veronica Joseph MD Primary Care Provider [phone] Olinda Vora APRN DRAPERY CUTTER MACHINE Unavailable [phone] Stiven Stanley LP Unavailable Star Galarza MD Unavailable [phone] Encounter Details Date Type Department Care Team (Latest Contact Info) Description 01/15/2025 Travel Social History Tobacco Use Types Packs/Day [...] in an overnight long-term, or couch-surfing.) Yes 11/09/2024 Are you worried [...] on file Legal Sex Female 8:25 AM HARDWARE TEST ENGINEER Gender Identity Not on file Sexual Orientation Not on file documented as of this encounter Plan of Treatment Upcoming Encounters Date Type Department Care Team (Late st Contact Info) Description 02/15/2025 10:30 AM CDT Lab [facility] Cancer [address] [address] Olinda Vora APRN DRAPERY CUTTER MACHINE [address] [place] [address] [id number] 02/15/2025 11:00 AM CDT Oncology Visit [facility] Cancer [address] [phone] Olinda Vora APRN DRAPERY CUTTER MACHINE [address] [place] [address] [phone] 04/09/2025 3:00 PM HARDWARE TEST ENGINEER Lab [facility] Cancer [address] [address] aCse Samuel MD [address] [place] [address] 484, RO[address] [place], [place] [phone] 04/09/2025 3:30 PM HARDWARE TEST ENGINEER Oncology Visit [facility] Clinic 909 [place] [address] Case Samuel MD 420 [facility] 484, [address] [place], [place] [address] documented as of this encounter Goals Goal [...] filedocumented in this encounter Care Teams Senior Telecommunications Engineer Relationship Specialty Start Date End Date Veronica Joseph MD [address] [place] [address] PCP - General Family Medicine 06/18/24 Mor Ramsey Medical Student 04/03/24 Case Samuel MD [address] [place] [address] 484, [address] [place], [place] [address] Assigned Pediatric Specialist Provider 05/18/24 Juhi Benson, RN Specialty Fryer Operator Hematology & Oncology 05/29/24 Olinda Vora APRN DRAPERY CUTTER MACHINE [address] [place] [address] Assigned Cancer Care Provider 08/16/24 Stiven Stanley LP [address] [place] [address] Psychologist PSYCHOLOGIST CLINICAL 10/25/24 Star Galarza MD [facility] [address] [facility] [address] [place] [address] Home Infusion Following Provider Infectious Diseases 11/07/24 documented as of this encounter
--- OUTSIDE RECORDS SUMMARY | 2025-02-09 01:55 | XMS_ITS | Encounter Summary ---
Author Organization [facility] Address [address] [place] [address]. [place] [address] Care Team Providers Care Director Of Physical Therapy Name Role Phone Roxy Mor Unavailable Unavailable Case Samuel MD Unavailable [phone] Juhi Benson RN Unavailable Unavailable Veronica Joseph MD Primary Care Provider [phone] Olinda Vora APRN SUBSCRIPTION CLERK Unavailable [phone] Stiven Stanley LP Unavailable Star Galarza MD Unavailable [phone] Encounter Details Date Type Department Care Team (Latest Contact Info) Description 01/18/2025 Travel Social History Tobacco Use Types Packs/Day [...] in an overnight assisted, or couch-surfing.) Yes 11/09/2024 Are you worried [...] Info) Description 02/15/2025 10:30 AM CDT Lab [facility] Cancer [address] [address] Olinda Vora APRN SUBSCRIPTION CLERK [address] [place] [address] [phone] 02/15/2025 11:00 AM CDT Oncology Visit [facility] Cancer [address] [phone] Olinda Vora APRN SUBSCRIPTION CLERK [address] [place] [address] [phone] 04/09/2025 3:00 PM SENIOR DATABASE ADMINISTRATOR Lab [facility] Cancer [address] [address] Case Samuel MD [address] [place] [address] 484, RO[address] [place], [place] [phone] 04/09/2025 3:30 PM SENIOR DATABASE ADMINISTRATOR Oncology Visit [facility] Clinic 909 [place] [address] Case Samuel MD 420 [facility] 484, [address] [place], [place] 6[address] documented as of this encounter Goals Goal [...] in this encounter Care Teams Director Of Physical Therapy Relationship Specialty Start Date End Date Veronica Joseph MD [address] [place] [address] PCP - General Family Medicine 06/18/24 Mor Ramsey Medical Student 04/03/24 Case Samuel MD [address] [place] [address] 484, [address] [place], [place] 9830[address] Assigned Pediatric Specialist Provider 05/18/24 Juhi Benson, RN Specialty Final Installer Inspector Hematology & Oncology 05/29/24 Olinda Vora APRN SUBSCRIPTION CLERK [address] [place] [address] Assigned Cancer Care Provider 08/16/24 Stiven Stanley LP 1575 [facility] [place] [address] Psychologist PSYCHOLOGIST CLINICAL 10/25/24 Star Galarza MD [facility] [address] [facility] . [address] [place] [address] Home Infusion Following Provider Infectious Diseases 11/07/24 documented as of this encounter
--- OUTSIDE RECORDS SUMMARY | 2025-02-09 01:55 | XMS_ITS | Encounter Summary ---
Author Organization [place] Address [address] [place] [address]. [place] [address] Care Team Providers Care Medical Billing Manager Name Role Phone RoxyElvirac Unavailable Unavailable Case Samuel MD Unavailable [phone] Juhi Benson RN Unavailable Unavailable Veronica Joseph MD Primary Care Provider [phone] Olinda Vora APRN TOP COATER Unavailable [phone] Stiven Stanley Unavailable Star Galarza MD Unavailable [phone] Reason for Visit * Reason Onset Date Comments Refill Request 01/16/2025 Encounter Details Date Type Department Care Team (Late st Contact Info) Description [facility] [address] [place] [address] Lynne Aguilar, RN Refill Request Social History Tobacco Use Types [...] file Legal Sex Female 8:25 AM ACID TENDER Gender Identity Not on file Sexual Orientation Not on file documented as of this encounter Plan of Treatment Upcoming Encounters Date Type Department Care Team (Late st Contact Info) Description 02/15/2025 10:30 AM CDT Lab [facility] [address] [phone] Olinda Vora APRN TOP COATER [address] [place] [address] [id number] 02/15/2025 11:00 AM CDT Oncology Visit [facility] [address] [phone] Olinda Vora APRN TOP COATER [address] [place] [id number] 04/09/2025 3:00 PM ACID TENDER Lab [facility] Cancer [facility] [address] [place] [phone] Case Samuel MD [address] [place] [address], [address] [id number] 04/09/2025 3:30 PM ACID TENDER Oncology Visit [facility] [address] [place] [phone] Case Samuel MD [address] [facility] 484, [address] [id number] documented as of this encounter Goals Goal [...] crisis documented in this encounter Care Teams Medical Billing Manager Relationship Specialty Start Date End Date Veronica Joseph MD [address] [place] [address] PCP - General Family Medicine 06/18/24 Mor Ramsey Medical Student 04/03/24 Case Samuel MD [address] [place] [address], [address] [place] [address] Assigned Pediatric Specialist Provider 05/18/24 Juhi Benson, RN Specialty Carton Liner Hematology & Oncology 05/29/24 Olinda Vora APRN TOP COATER [address] [place], [place] [address] Assigned Cancer Care Provider 08/16/24 Stiven Stanley LP [address] [facility] [place] [address] Psychologist PSYCHOLOGIST CLINICAL 10/25/24 Star Galarza MD [facility] [address] [place], [place] [address] Home Infusion Following Provider Infectious Diseases 11/07/24 documented as of this encounter
--- OUTSIDE RECORDS SUMMARY | 2025-02-09 01:56 | XMS_ITS | Encounter Summary ---
Author Organization [place] Address [address] [place] [address]. [place] [address] Care Team Providers Care Construction Equipment Mechanic Helper Name Role Phone Roxy Mor Unavailable Unavailable Case Samuel MD Unavailable [phone] Juhi Benson RN Unavailable Unavailable Veronica Joseph MD Primary Care Provider [phone] Olinda Vora APRN SAP [employer] SECURITY Unavailable [phone] Stiven Stanley LP Unavailable Star Galarza MD Unavailable [phone] Encounter Details Date Type Department Care Team (Latest Contact Info) Description 01/21/2025 Travel Social History Tobacco Use Types Packs/Day [...] on file Legal Sex Female 8:25 AM HISTORIC INTERPRETER Gender Identity Not on file Sexual Orientation Not on file documented as of this encounter Plan of Treatment Upcoming Encounters Date Type Department Care Team (Late st Contact Info) Description 02/15/2025 10:30 AM CDT Lab [facility] Cancer [address] [phone] Olinda Vora APRN [employer]ITY [address] [place] [address] [id number] 02/15/2025 11:00 AM CDT Oncology Visit [facility] Cancer [address] [phone] Olinda Vora APRN [employer] [address] [place] [id number] 04/09/2025 3:00 PM HISTORIC INTERPRETER Lab [facility] Cancer [address] [phone] Case Samuel MD [address] [place] [address], [address], [place] [id number] 04/09/2025 3:30 PM HISTORIC INTERPRETER Oncology Visit [facility] [address] [place] [address] Case Samuel MD [address] [facility] 484, [address] [place], [place] [id number] documented as of this encounter Goals Goal [...] on filedocumented in this encounter Care Teams Construction Equipment Mechanic Helper Relationship Specialty Start Date End Date Veronica Joseph MD [address] [place] [address] PCP - General Family Medicine 06/18/24 Mor Ramsey Medical Student 04/03/24 Case Samuel MD [address] [place] [address], [address] [place], [place] 6[address] Assigned Pediatric Specialist Provider 05/18/24 Juhi Benson, RN Specialty Federal Judge Hematology & Oncology 05/29/24 Olinda Vora APRN [employer] [address] [place] [address] Assigned Cancer Care Provider 08/16/24 Stiven Stanley LP [address] [facility] [place] [address] Psychologist PSYCHOLOGIST CLINICAL 10/25/24 Star Galarza MD [facility] [address] [place] [address] Home Infusion Following Provider Infectious Diseases 11/07/24 documented as of this encounter
--- OUTSIDE RECORDS SUMMARY | 2025-02-09 01:56 | XMS_ITS | Encounter Summary ---
Author Organization [place] Address [address] [place] [address]. [place] [address] Care Team Providers Care Dispensing Optician Name Role Phone Roxy Mor Unavailable Unavailable Case Samuel MD Unavailable [phone] Juhi Benson RN Unavailable Unavailable Veronica Joseph MD Primary Care Provider [phone] Olinda Vora APRN DIRECTOR OF ASSESSMENT Unavailable [phone] Stiven Stanley LP Unavailable Star Galarza MD Unavailable [phone] Encounter Details Date Type Department Care Team (Latest Contact Info) Description 01/23/2025 Travel Social History Tobacco Use Types Packs/Day [...] file Legal Sex Female 8:25 AM STUDENT SERVICES COORDINATOR Gender Identity Not on file Sexual Orientation Not on file documented as of this encounter Plan of Treatment Upcoming Encounters Date Type Department Care Team (Late st Contact Info) Description 02/15/2025 10:30 AM CDT Lab [facility] Cancer [address] [phone] Olinda Vora APRN DIRECTOR OF ASSESSMENT [address] [place] [address] [phone] 02/15/2025 11:00 AM CDT Oncology Visit [facility] Cancer [address] [phone] Olinda Vora APRN DIRECTOR OF ASSESSMENT [address] [place] [address] [phone] 04/09/2025 3:00 PM STUDENT SERVICES COORDINATOR Lab [facility] Cancer [address] [phone] Case Samuel MD [address] [place] [address], [address] [place], [place] [phone] 04/09/2025 3:30 PM STUDENT SERVICES COORDINATOR Oncology Visit [facility] [address] [place] [address] Case Samuel MD [address] [facility] 484, [address] [place], [place] [address] documented as of this encounter Goals Goal [...] on filedocumented in this encounter Care Teams Dispensing Optician Relationship Specialty Start Date End Date Veronica Joseph MD [address] [place] [address] PCP - General Family Medicine 06/18/24 Mor Ramsey Medical Student 04/03/24 Case Samuel MD [address] [place] [address], [address] [place], [place] [address] Assigned Pediatric Specialist Provider 05/18/24 Juhi Benson, RN Specialty Floorhand Hematology & Oncology 05/29/24 Olinda Vora APRN DIRECTOR OF ASSESSMENT [address] [place] [address] Assigned Cancer Care Provider 08/16/24 Stiven Stanley LP [address] [facility] [address] Psychologist PSYCHOLOGIST CLINICAL 10/25/24 Star Galarza MD [facility] [address] [place] [address] Home Infusion Following Provider Infectious Diseases 11/07/24 documented as of this encounter
--- OUTSIDE RECORDS SUMMARY | 2025-02-09 01:56 | XMS_ITS | Clinical Summary ---
Author Organization [facility] Address [address] [place] [address] Care Team Providers Care Print Shop Stenographer Name Role Phone None Reported, Pcp Primary Care Provider Unavail able Source Comments Patient records contain information from all sites at [facility]. For routine questions regarding patient records, call [phone] during business hours, M-F 8:00 AM - 5:00 PM Central Time. Record requests for emergency care only can be directed to [phone] at any time.[facility] Allergies Active Allergy Reactions Criticality Noted Date Comments Acetaminophen Hives only, no other systemic symptoms,Hives (Reselect Reaction) 05/16/2019 Banana Anaphylaxis,Hives (Reselect Reaction),Angioedema High 06/25/2019 Swelling of Throat Cashew Nut Hives only, no other systemic symptoms,Hives (Reselect Reaction) High 06/25/2019 Latex Hives only, no other systemic symptoms,Hives (Reselect Reaction),Rash High 09/15/2022 Morphine Hives only, no other systemic symptoms,Seizure,Hives (Reselect Reaction),Rash High 05/22/2019 Seizure. Other opioids tolerated. Tramadol Hives only, no other systemic symptoms High 07/22/2024 Tree Nut Anaphylaxis,Hives (Reselect Reaction) High 06/25/2019 Cashews Medications hydroxyurea (Hydrea) 500 mg capsule Take 2,000 mg by mouth daily. Take at the same time each day. Active folic acid 1 mg tablet Take 1 mg by mouth daily. Active HYDROmorphone (Dilaudid) 4 mg tablet Take 4 mg by mouth every 3 (three) hours as needed for pain. Active multivitamin tablet Take 1 tablet by mouth daily. Active EPINEPHrine 0.3 mg/0.3 mL injection syringe Inject 0.3 mg intramuscularly as needed. 09/05/19 Active fexofenadine (Karol) 60 mg tablet Take 60 mg by mouth as needed for allergies. 09/05/19 Active FLUoxetine (PROzac) 20 mg capsule Take 20 mg by mouth daily. 07/18/19 Active glutamine, sickle cell, (Endari) 5 gram powder in packet packet Take 30 g by mouth 2 (two) times a day. 05/13/19 Active ibuprofen 600 mg tablet Take 600 mg by mouth 3 (three) times a day. 06/08/19 Active naloxone (Narcan) 4 mg/actuation nasal spray Administer 4 mg into nostril(s) once. 06/06/19 Active traZODone (DesyreL) 50 mg tablet Take 50 mg by mouth at bedtime. 04/29/19 Active ondansetron ODT (Zofran-ODT) 4 mg disintegrating tablet Dissolve 4 mg in the mouth every 8 (eight) hours as needed for nausea or vomiting. 09/11/19 Active polyethylene glycol (Miralax) 17 gram/dose oral powder Take 17 g by mouth daily as needed for constipation. 09/11/19 Active sennosides-docusa te sodium (Senokot-S) 8.6-50 mg per tablet Take 2 tablets by mouth 2 (two) times a day as needed for constipation. 09/11/19 Active apixaban (Eliquis) 5 mg tablet Take 5 mg by mouth 2 (two) times a day. 09/11/19 Active diphenhydrAMINE (BenadryL) 25 mg tablet Take 1-2 tablets by mouth every 6 (six) hours as needed for itching. Active FLUoxetine (PROzac) 40 mg capsule Take 40 mg by mouth daily. 10/14/19 Active Active Problems Problem Noted Date Diagnosed Date Chronic Pain Syndrome 09/18/2019 Opioid Moderate Or Severe Us e Disorder (Dependence) Uncomplicated 09/18/2019 Sickle Cell Without Crisis 11/09/2012 Overview (01/07/2025): - Meds: endari 15mg BID, Diulauid 4 prn, folic acid 4mg qd, port in place (discontinued with positive test) - Provider: [facility] - S/p admission from 04/21 to 04/22 for Influenza induced pain crisis - [facility] heme onc recommends RBC exchange transfusions q 4-6wks - We discussed the need for serial growth US as the patient is at an increased risk for FGR - We discussed avoiding hydroxyurea as this medication is teratogenic - If admitted to the hospital with an acute medical problem (such as pneumonia, vaso-occlusive pain episode) should receive venous thromboembolism prophylaxis with a low molecular weight heparin (LMWH) or low molecular weight heparin, unless otherwise contraindicated - Per ACOG guidelines listed in practice bulletin # 78, There is no consensus regarding the exact hematocrit value below which transfusion should be considered. However, when a transfusion is clinically indicated in the patient with sickle cell disease, the objective is to lower the percentage of Hb S to approximately 40% while simultaneously raising the total hemoglobin concentration to about 10 g/dL. - Hemoglobin levels and the percentage of Hb S should be monitored serially during the remainder of the to determine the need for subsequent transfusions Plan: Growth Table GA Date EFW / % Fluid Presentation Additional notes 18.2 01/20/22 250g 65% wnl Cephalic Anterior Placenta 32.4 04/30/22 1788g (15%) 5.3 Cephalic - Provided normal growth, plan for growth US at 26w, 32w, 36w Encounters Date Type Department Care Team Description 02/07/2025 9:14 PM CDT - 02/07/2025 11:29 PM CDT Emergency [facility] [address] [place] [phone] Ben Alexander, P.A.-C., P.A. Hb-SS Disease (Sickle Cell) Vaso-Occlusive Pain Crisis (HCC) (Primary Dx) Discharge Disposition: Home or Self Care 02/06/2025 11:17 AM CDT - 02/06/2025 1:09 PM CDT Emergency [facility] [address] [place] [phone] Karrie Joshua APRN, C.N.P., M.S.N. Hb-SS Disease (Sickle Cell) Vaso-Occlusive Pain Crisis (HCC) (Primary Dx) Discharge Disposition: Home or Self Care 02/06/2025 Results Follow-Up [facility] [address] [place] [phone] Bushra Latham R.N. Reticulocyte Profile, LD (Lactate Dehydrogenase) 02/04/2025 4:36 PM CDT - 02/04/2025 6:51 PM CDT Emergency [facility] [address] [place] [phone] Jeffrey Valdez APRN, C.N.P., M.S.N. Hb-SS Disease (Sickle Cell) Vaso-Occlusive Pain Crisis (HCC) (Primary Dx) Discharge Disposition: Home or Self Care 02/03/2025 7:50 PM CDT - 02/03/2025 9:46 PM CDT Emergency [facility] [address] [place] [phone] Cheli Bond APRN, C.N.P. Hb-SS Disease (Sickle Cell) Vaso-Occlusive Pain Crisis (HCC) (Primary Dx) Discharge Disposition: Home or Self Care 01/28/2025 12:20 PM CDT - 01/28/2025 3:40 PM CDT Emergency [facility] [address] [place] [phone] Klever Wells APRN, C.N.P., D.N.P. Hb-SS Disease (Sickle Cell) Vaso-Occlusive Pain Crisis (HCC) (Primary Dx); Pain In Joint; Pain Back Discharge Disposition: Home or Self Care 01/27/2025 9:52 PM CDT - 01/28/2025 1:03 AM CDT Emergency [facility] [address] [place] [phone] Jeffrey Valdez APRN, C.N.P., M.S.N. Hb-SS Disease (Sickle Cell) Vaso-Occlusive Pain Crisis (HCC) (Primary Dx) Discharge Disposition: Home or Self Care 01/07/2025 12:56 PM CDT - 01/07/2025 3:45 PM CDT Emergency [facility] [address] [place] [address], [place] [phone] Jayden Godfrey M.D. Hb-SS Disease (Sickle Cell) Vaso-Occlusive Pain Crisis (HCC) (Primary Dx) Discharge Disposition: Home or Self Care 12/24/2024 10:11 AM CDT - 12/24/2024 1:43 PM CDT Emergency [facility] [address] [place] [phone] Lebron La D.O. Hb-SS Disease (Sickle Cell) Vaso-Occlusive Pain Crisis (HCC) (Primary Dx) Discharge Disposition: Home or Self Care 12/17/2024 6:49 PM CDT - 12/17/2024 9:21 PM CDT Emergency [facility] [address] [place] [phone] Cheli Bond APRN, C.N.P. Hb-SS Disease (Sickle Cell) Vaso-Occlusive Pain Crisis (HCC) (Primary Dx) Discharge Disposition: Home or Self Care 11/29/2024 6:19 PM CDT - 11/29/2024 9:03 PM CDT Emergency [facility] [address] [place] [phone] Ana María Crews APRN, C.N.P., D.N.P. Hb-SS Disease (Sickle Cell) Vaso-Occlusive Pain Crisis (HCC) (Primary Dx) Discharge Disposition: Home or Self Care 11/27/2024 7:05 PM CDT - 11/27/2024 11:26 PM CDT Emergency [facility] [address] [place] [phone] Lebron La D.O. Hb-SS Disease (Sickle Cell) Vaso-Occlusive Pain Crisis (HCC) (Primary Dx) Discharge Disposition: Home or Self Care 11/26/2024 8:01 AM CDT - 11/26/2024 11:16 AM T Emergency [facility] [address] [place] [phone] Jori Malcolm M.D. Sickle Cell Disease (HCC) (Primary Dx) Discharge Disposition: Home or Self Care 11/23/2024 8:12 PM CDT - 11/23/2024 11:09 PM CDT Emergency [facility] [address] [place] [phone] Danica Greer M.D. Hb-SS Disease (Sickle Cell) With Crisis Unspecified (HCC) (Primary Dx); Pain Chest Discharge Disposition: Home or Self Care from [...] Pulse 83 02/07/2025 11:15 PM CDT Temperature 37 C (98.6 F) 02/06/2025 11:13 AM CDT Respiratory Rate 22 02/07/2025 9:20 PM CDT Oxygen Saturation 96% 02/07/2025 11: 15 PM CDT Inhaled Oxygen Concentration - - Weight 48.9 kg (107 lb 12.9 oz) 02/07/2025 9:18 PM CDT Height - - Body Mass Index - - Plan of Treatment Health Maintenance Due Date Last Done Comments HIV Screening 1994 Hepatitis C Screening 1994 MenB Vaccine (1 of 4 - Incre ased Risk) 2004 Pneumococcal vaccine (0-49 y ears) (1 of 2 - PCV) 2013 Zoster Vaccines (1 of 2) 2013 Meningococcal Vaccine (3 - R isk 2-dose series) 04/13/2016 04/13/2011, 10/10/2007, 01/18/2007 DTaP,Tdap,and Td Vaccines (7 - Td or Tdap) 01/18/2017 01/18/2007, 11/20/1999, 07/18/1998, Additional history exists Depression Screening (Annual PHQ-2) 04/26/2024 COVID-19 Vaccine (2024-05 6 season) 2024 03/26/2023, 05/21/2021, 02/27/2021, Additional history exists Cervical/Vaginal Cancer Screening 01/06/2025 022 Hepatitis B Vaccines Completed 06/07/1995, 1994, 1994 HIB Vaccines Completed 11/13/1995, 02/24, 1994, Additional history exists IPV Vaccines Completed 11/20/1999, 06/25, 11/13/1995, Additional history exists HPV Vaccines Completed 01/24/2009, 09/24, 03/28/2008, Additional history exists Influenza Vaccine Completed 01/18/2025, , 01/15/2023, Additional history exists Procedures Procedure Name Priority Date/Time Associated Diagnosis Comments ECG STAT 02/07/2025 9:28 PM CDT LACTATE DEHYDROGENASE (LD), S STAT 02/06/2025 11:29 AM CDT PROTHROMBIN TIME (PT), P STAT 02/06/2025 11:29 AM CDT LIPASE, S/P STAT 02/06/2025 11:29 AM CDT COMPREHENSIVE METABOLIC PANEL, S/P STAT 02/06/2025 11:29 AM CDT RETICULOCYTE PROFILE, B STAT 02/06/2025 11:29 AM CDT CBC WITH DIFFERENTIAL, B STAT 02/06/2025 11:29 AM CDT ECG Routine 02/03/2025 8:46 PM CDT MORPHOLOGY EVALUATION STAT 12/17/2024 7:41 PM CDT RETICULOCYTE PROFILE, B STAT 12/17/2024 7:41 PM CDT COMPREHENSIVE METABOLIC PANEL, S/P STAT 12/17/2024 7:41 PM CDT CBC WITH DIFFERENTIAL, B STAT 12/17/2024 7:41 PM CDT ECG STAT 11/29/2024 7:16 PM CDT CBC WITH DIFFERENTIAL, B STAT 11/29/2024 7:09 PM CDT COMPREHENSIVE METABOLIC PANEL, S/P STAT 11/29/2024 7:09 PM CDT RETICULOCYTE PROFILE, B STAT 11/29/2024 7:09 PM CDT DX CHEST PORTABLE 1 VIEW RAD - Semiurgent (Fast; most ED patients; some inpatients) 11/29/2024 6:57 PM CDT DX CHEST PORTABLE 1 VIEW RAD - Semiurgent (Fast; most ED patients; some inpatients) 11/27/2024 8:15 PM CDT RETICULOCYTE PROFILE, B STAT 11/27/2024 8:02 PM CDT COMPREHENSIVE METABOLIC PANEL, S/P STAT 11/27/2024 8:02 PM CDT CBC WITH DIFFERENTIAL, B STAT 11/27/2024 8:02 PM CDT TROPONIN T, 2H/6H REFLEX, 5TH GEN, P Timed 11/23/2024 10:43 PM CDT DX CHEST AP OR PA AND LATERAL 2 VIEWS RAD - Semiurgent (Fast; most ED patients; some inpatients) 11/23/2024 9:32 PM CDT ECG STAT 11/23/2024 9:22 PM CDT VENOUS BLOOD GAS W/O COOX STAT 11/23/2024 8:30 PM CDT BASIC METABOLIC PANEL, S/P STAT 11/23/2024 8:30 PM CDT CBC WITH DIFFERENTIAL, B STAT 11/23/2024 8:30 PM CDT RETICULOCYTE PROFILE, B STAT 11/23/2024 8:30 PM CDT TROPONIN T, BASELINE, 5TH GEN, P STAT 11/23/2024 8:29 PM CDT from Last 3 Months Results * ECG 12 Lead (02/07/2025 9:28 PM CDT) Only the most recent of4 resultswithin the time period is included. Ventricular Rate ECG/Min 97 BPM MUSE IN Interval 148 ms MUSE QRSD Interval 86 ms MUSE QT Interval 342 ms MUSE QTC Interval 434 ms MUSE P [place] 29 degrees MUSE R [place] 66 degrees MUSE T Wave [place] 36 degrees MUSE 02/07/2025 9:2 8 PM CDT 02/07/2025 9:30 PM CDT Impressions [...] change was found Reviewed by JUAN Duenas us Ben Alexander P.A.-C., P.A. ECG ORDERABLES Fi nal Result MUSE NA * (ABNORMAL) Reticulocyte Profile (02/06/2025 11:29 AM CDT) Only the most recent of5 resultswithin the time period is included. Reticulocytes, B 14.59(H) 0.60 - 2.71 % 02/06/2025 1:07 PM CDT [facility] Absolute Reticulocyte 356.0(H) 30.4 - 110.9 x10(9)/L 02/06/2025 1:07 PM CDT [facility] Immature Reticulocyte Fraction 35.9(H) 3.0 - 15.9 % 02/06/2025 1:07 PM CDT [facility] Reticulocyte Hemoglobin 35.3 30.0 - 37.6 pg 02/06/2025 1:07 PM CDT [facility] Blood (Blood, Venous) 02/06/2025 11:29 AM CDT 02/06/2025 12:42 PM CDT Karey Chavira APRNNNemo, M.S.N. LAB BLOOD ADD-ON Final Result [facility] [address] [place] [address], [facility] in [address] [phone] * (ABNORMAL) Prothrombin Time (PT) (02/06/2025 11:29 AM CDT) Prothrombin Time, P 15.6(H) 9.4 - 12.5 sec 02/06/2025 11:41 AM CDT CNFL INR 1.4 0.9 - 1.1 02/06/2025 11:41 AM CDT CNFL Comment: ----ADDITIONAL INFORMATION---- Standard intensity warfarin therapeutic range: 2.0 to 3.0 High intensity warfarin therapeutic range: 2.5 to 3.5 Blood (Blood, Venous) 02/06/2025 11:29 AM CDT 02/06/2025 11:32 AM CDT Karey Chavira APRNN.Linda., M.S.N. LAB BLOOD ADD-ON Final Result [facility] [address] [place] [address], [facility] CNFL [facility] in [address] [address] * (ABNORMAL) CBC with Differential, Blood (02/06/2025 11:29 AM CDT) Only the most recent of5 resultswithin the time period is included. Hemoglobin 8.4(L) 11.6 - 15.0 g/dL 02/06/2025 [...] CDT 02/06/2025 11:32 AM CDT Karrie Joshua APRN, C.N.P., M.S.N. LAB BLOOD ADD-ON Final Result Performing Organization Address [facility]/[place] [address], [place] [address] * Lipase (02/06/2025 11:29 AM CDT) Lipase, P 32 13 - 60 U/L 02/06/2025 11:53 AM CDT CNFL Blood (Blood, Venous) 02/06/2025 11:29 AM CDT 02/06/2025 11:31 AM CDT Karey Chavira APRNNBertrand., M.S.N. LAB BLOOD ADD-ON Final Result Performing Organization Address [facility] [place] [address], [place] [address] * (ABNORMAL) LD (Lactate Dehydrogenase) (02/06/2025 11:29 AM CDT) Lactate Dehydrogenase (LD), P 417(H) 122 - 222 U/L 02/06/2025 1:18 PM CDT [facility] Blood (Blood, Venous) 02/06/2025 11:29 AM CDT 02/06/2025 12:41 PM CDT Karey Chavira APRNNBertrand., M.S.N. LAB BLOOD NON ADD-ON Final Result [facility] [address] [place] [address], [place] R[facility] in [place] [address], [place] [phone] * (ABNORMAL) Comprehensive Metabolic Panel (02/06/2025 11:29 AM CDT) Only the most recent of4 resultswithin the time period is included. Pathologist [facility] [place] Potassium, P 3.6 3.6 - 5.2 mmol/L [...] AM CDT 02/06/2025 11:31 AM CDT us Karey Chavira APRNNSherylP., M.S.N. LAB BLOOD ADD-ON Final Result [facility] [address] [place] [address], [facility] CNFL [facility] [place] [address] * (ABNORMAL) Morphology Evaluation (12/17/2024 7:41 PM CDT) RBC Morphology See Specific Findings 12/17/2024 8:20 PM CDT [facility] PLT Morphology Normal 12/17/2024 8:20 PM CDT [facility] PLT Estimate Increased(A ) Adequate 12/17/2024 8:20 PM CDT [facility] Acanthocytes Slight(A) 12/17/2024 8:20 PM CDT [facility] Anisocytosis Marked(A) 12/17/2024 8:20 PM CDT [facility] Elliptocytes Moderate(A) Not Seen 12/17/2024 8:20 PM CDT [facility] Ziegler [place] Bodies Present(A) Not Seen 12/17/2024 8:20 PM CDT [facility] Hypochromia Moderate(A) Not Seen 12/17/2024 8:20 PM CDT [facility] Poikilocytosis Marked(A) Not Seen 12/17/2024 8:20 PM CDT [facility] Sickle Cells Slight(A) Not Seen 12/17/2024 8:20 PM CDT [facility] Target Cells Marked(A) Not Seen 12/17/2024 8:20 PM CDT [facility] Toxic Neutrophils Present(A) Not Seen 025 8:20 PM CDT [facility] Blood 12/17/2024 7:41 PM CDT 12/17/2024 7:46 PM CDT us Cheli Bond BOAT CLEANER, C.N.P. LAB BLOOD ADD-O N Final Result [facility] [address] [facility] [address], [facility] in [place] [address] [facility] [phone] * DX Chest Portable 1 View (11/29/2024 6:57 PM CDT) Only the most recent of2 resultswithin the time period is included. Anatomical Region Laterality Modality Chest, Thoracic RST LOS, Tho racic ARZ LOS, Thoracic FLA LOS N/A Digital Radiography Impressions 11/29/2024 7:14 PM CDT No consolidation, pleural effusion, or pneumothorax. Cardiomediastinal silhouette is within normal limits in size. Unchanged position of right PICC. Comparison made with 11/27/2024. Narrative 11/29/2024 7:14 PM CDT EXAM: DX CHEST PORTABLE 1 VIEW Procedure Note Milton Herrera M.D. - 11/29/2024 EXAM: DX CHEST PORTABLE 1 VIEW IMPRESSION: No consolidation, pleural effusion, or pneumothorax. Cardiomediastinalsilhouette is within normal limits in size. Unchanged position of rightPICC. Comparison made with 11/27/2024. us Ana María Crews APRN, C.N.P., D.N.P. IMG DIAGNO STIC IMAGING PROCEDURES Final Result * Troponin T, 2 Hour with 6 Hour Reflex, 5th Gen (11/23/2024 10:43 PM CDT) Troponin T, 2 hr, 5th gen <6 <=10 ng/L 11/23/2024 11:06 PM CDT [facility] 2H Delta 0 ng/L 11/23/2024 11:06 PM CDT [facility] Comment:6 hour collection no t indicated. 2H Delta Interp Not Changing 11/23/2024 11:06 PM CDT [facility] Blood 11/23/2024 10:4 3 PM CDT 11/23/2024 10:47 PM CDT Danica Greer M.D. LAB BLOOD TROPONIN Final Result [facility] [address] [facility] [place] [address], [facility] R[facility] in [place] [address] [place] [phone] * DX Chest AP or PA and Lateral 2 Views (11/23/2024 9:32 PM CDT) Anatomical Region Laterality Modality Chest, Thoracic RST LOS, Tho racic ARZ LOS, Thoracic FLA LOS N/A Digital Radiography Impressions 11/23/2024 9:48 PM CDT No airspace consolidation. No effusions. Mild linear atelectasis or scarring right mid and lower lung. Normal cardiac size and pulmonary vascularity. Right arm approach PICC tip at the cavoatrial junction. Narrative 11/23/2024 9:48 PM CDT EXAM: DX CHEST AP OR PA AND LATERAL 2 VIEWS Procedure Note James Mckeon M.D. - 11/23/2024 EXAM: DX CHEST AP OR PA AND LATERAL 2 VIEWS IMPRESSION: No airspace consolidation. No effusions. Mild linear atelectasis orscarring right mid and lower lung. Normal cardiac size and pulmonaryvascularity. Right arm approach PICC tip at the cavoatrial junction. Danica Greer M.D. IMG DIAGNOSTIC IMAGING IN OCEDURES Final Result * (ABNORMAL) Blood Gas without Coox, Venous (11/23/2024 8:30 PM CDT) [facility] Sample Site, Venous Venipunct 11/23/2024 8:34 PM CDT [facility] pO2, Venous 32 Not applicable mm Hg 11/23/2024 8:34 PM CDT [facility] pCO2, Venous 37(L) 41 - 51 mm Hg 8:34 PM CDT [facility] pH, Venous 7.41 7.32 - 7.43 pH 11/23/2024 8:34 PM CDT [facility] Base Excess, Venous -1 Not applicable mmol/L 11/23/2024 8:34 PM CDT [facility] HCO3, Venous 23 Not applicable mmol/L 11/23/2024 8:34 PM CDT [facility] Blood (Blood, Venous) 11/23/2024 8:30 PM CDT 11/23/2024 8:32 PM CDT Danica Greer M.D. LAB BLOOD NON ADD-ON Liss l Result [facility] [address] [place] [address], [facility] R[facility] in [place] [address] [place] [address], [place] [phone] * (ABNORMAL) Basic Metabolic Panel (11/23/2024 8:30 PM CDT) [facility] Potassium, P 4.2 3.6 - 5.2 mmol/L 11/23/2024 8:57 PM CDT [facility] Sodium, P 140 135 - 145 mmol/L 11/23/2024 8:57 PM CDT [facility] Chloride, P 107 98 - 107 mmol/L 11/23/2024 8:57 PM CDT [facility] Bicarbonate, P 20(L) 22 - 29 mmol/L 11/23/2024 8:57 PM CDT [facility] Anion Gap, P 13 7 - 15 11/23/2024 8:57 PM CDT [facility] BUN (Blood Urea Nitrogen), P 10 6 - 21 mg/dL 11/23/2024 8:57 PM CDT [facility] Creatinine 0.66 0.59 - 1.04 mg/dL 11/23/2024 8:57 PM CDT [facility] Estimated GFR (eGFR) >90 >=60 mL/min/BSA 11/23/2024 8:57 PM CDT RDWG Comment: Estimated GFR calculated using the 2020 CKD_EPI creatinine equation. Calcium, Total, P 9.6 8.6 - 10.0 mg/dL 11/23/2024 8:57 PM CDT [facility] Glucose, P 102 70 - 140 mg/dL 11/23/2024 8:57 PM CDT [facility] Blood (Blood, Venous) 11/23/2024 8:30 PM CDT 11/23/2024 8:32 PM CDT us Danica Greer M.D. LAB BLOOD ADD-ON Final Re sult [facility] [address] [facility] [address], [facility] R[facility] in [place] [address] [place] [address] * Troponin T, Baseline with 2 Hour/6 Hour Reflex Biomarker Panel (11/23/2024 8:29 PM CDT) Troponin T, Baseline, 5th gen <6 <=10 ng/L 11/23/2024 9:49 PM CDT [facility] Blood (Blood, Venous) 11/23/2024 8:29 PM CDT 11/23/2024 9:36 PM CDT us Danica Greer M.D. LAB BLOOD TROPONIN Final Result [facility] [address] [facility] [address], [facility] R[facility] in [place] [address] [facility] [place] [phone] from Last 3 Months Insurance [facility] [place] [address] Care Teams Print Shop Stenographer Relationship Specialty Start Date End Date None Reported, Pcp PCP - General Family Medicine 07/22/24
--- OUTSIDE RECORDS SUMMARY | 2025-02-09 01:56 | XMS_ITS | Encounter Summary ---
Author Organization [facility] Address [address] [place] [address]. [place] [address] Care Team Providers Care Surgical Scrub Technologist Name Role Phone RoxyElvirac Unavailable Unavailable Case Samuel MD Unavailable [phone] Juhi Benson RN Unavailable Unavailable Veronica Joseph MD Primary Care Provider [phone] Olinda Vora APRN SYSTEMS DEVELOPMENT MANAGER Unavailable [phone] Stiven Stanley LP Unavailable Star Galarza MD Unavailable [phone] Reason for Visit * Reason Onset Date Comments Refill Request 01/22/2025 Encounter Details Date Type Department Care Team (Late st Contact Info) Description 01/22/2025 [facility] [address] [place] [address] Tatiana Cohen, SYSTEMS DEVELOPMENT MANAGER [address] [facility] [address] [place] [address] Refill Request Social History Tobacco [...] on file Legal Sex Female 8:25 AM AWNING HANGER SUPERVISOR Gender Identity Not on file Sexual Orientation Not on file documented as of this encounter Miscellaneous Notes * Telephone Encounter - Roberta Summers RN - 01/22/2025 10:24 AM CDT Narcotic Refill Request Medication(s) requested: dilaudid Person Requesting Refill:Gianna What pain is the medication treating: sickle cell pain How is the medication being taken?:takes as needed Does pt have enough for today? Is out of medication Is pain being adequately controlled on the current regimen?: somewhat Experiencing any side effects from medication?: None Date of most recent appointment: 01/18/25 Tatiana Cohen Any No Show Visits:No Next appointment: 02/15/25 Olinda Vora Last fill date and by whom: 01/16/25 Tatiana Cohen OIL DRILLER Reviewed: No Access Send to provider: Tatiana Cohen and Juhi Benson documented in this encounter Plan of Treatment Upcoming Encounters Date Type Department Care Team (Late st Contact Info) Description 02/15/2025 10:30 AM CDT Lab [facility] [address] [phone] Olinda Vora APRN SYSTEMS DEVELOPMENT MANAGER [address] [place] [address] 02/15/2025 11:00 AM CDT Oncology Visit [facility] [address] [phone] Olinda Vora APRN SYSTEMS DEVELOPMENT MANAGER [address] [place] [address] 04/09/2025 3:00 PM AWNING HANGER SUPERVISOR Lab [facility] [address] [phone] Case Samuel MD [address] [place] [address], [address] [place], [place] [address] 04/09/2025 3:30 PM AWNING HANGER SUPERVISOR Oncology Visit [facility] [address] [phone] Case Samuel MD [address] [place] [address] 484, [address] [place], [place] [phone] documented as of this encounter Goals Goal [...] crisis documented in this encounter Care Teams Surgical Scrub Technologist Relationship Specialty Start Date End Date Veronica Joseph MD [address] [place] [address] PCP - General Family Medicine 06/18/24 Roxy Mor Medical Student 04/03/24 Case Samuel MD [address] [facility] [address], [address] [place] [address] Assigned Pediatric Specialist Provider 05/18/24 Juhi Benson, SOFIA Specialty Septic Technician Hematology & Oncology 05/29/24 Olinda Vora APRN SYSTEMS DEVELOPMENT MANAGER [address] [place] [address] Assigned Cancer Care Provider 08/16/24 Stiven Stanley LP [address] [place] [address] Psychologist PSYCHOLOGIST CLINICAL 10/25/24 Star Galarza MD [facility] [address] [place] [address] Home Infusion Following Provider Infectious Diseases 11/07/24 documented as of this encounter
--- OUTSIDE RECORDS SUMMARY | 2025-02-09 01:56 | XMS_ITS | Encounter Summary ---
Author Organization [facility] Address [address] [place] [address]. 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 Gender Identity Not on file Sexual Orientation Not on file documented as of this encounter Plan of Treatment Upcoming Encounters Date Type Department Care Team (Late st Contact Info) Description 02/15/2025 10:30 AM CDT Lab [facility] [address] [phone] Olinda Vora APRN ORACLE SPECIALIST [address] [place] [phone] 02/15/2025 11:00 AM CDT Oncology Visit [facility] [address] [phone] Olinda Vora APRN ORACLE SPECIALIST [address] [place] [address] [phone] 04/09/2025 3:00 PM UNDERCOVER COP Lab [facility] [address] [phone] Case Samuel MD [address] [place] [address] 484, [address] [place], [place] [phone] 04/09/2025 3:30 PM UNDERCOVER COP Oncology Visit [facility] [address] [place] [address] Case Samuel MD 420 [facility] 484, [address] [place], [place] [address] documented as of this encounter Goals Goal [...] on filedocumented in this encounter Care Teams Early Intervention Specialist Relationship Specialty Start Date End Date Veronica Joseph MD [address] [place] [address] PCP - General Family Medicine 06/18/24 Mor Ramsey Medical Student 04/03/24 Case Samuel MD [address] [place] [address], [address] [place], [place] [phone] Assigned Pediatric Specialist Provider 05/18/24 Juhi Benson, RN Specialty Cyber Systems Operations Specialist Hematology & Oncology 05/29/24 Olinda Vora APRN ORACLE SPECIALIST [address] [place] [address] Assigned Cancer Care Provider 08/16/24 Stiven Stanley LP [address] [facility] [place] [address] Psychologist PSYCHOLOGIST CLINICAL 10/25/24 Star Galarza MD [facility] [address] [facility] [address] [place] [address] Home Infusion Following Provider Infectious Diseases 11/07/24 documented as of this encounter
--- OUTSIDE RECORDS SUMMARY | 2025-02-09 01:56 | XMS_ITS | Encounter Summary ---
Author Organization [facility] Address [address] [place] [address]. [place] [address] Care Team Providers Care Sorter Pricer Name Role Phone RoxyElvirac Unavailable Unavailable Case Samuel MD Unavailable [phone] Juhi Benson RN Unavailable Unavailable Veronica Joseph MD Primary Care Provider [phone] Olinda Vora APRN SUPPLY ROOM CLERK Unavailable [phone] Stiven Stanley Unavailable Star Galarza MD Unavailable [phone] Reason for Visit * Reason Onset Date Comments Refill Request 01/22/2025 errouneous encounter 01/22/2025 Encounter Details Date Type Department Care Team (Late st Contact Info) Description 01/22/2025 Refill [facility] [address] [place] [phone] Roberta Summers RN Refill Request; errouneous encounter Social History Tobacco Use Types Packs/Day Years [...] on file 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 Gender Identity Not on file Sexual Orientation Not on file documented as of this encounter Plan of Treatment Upcoming Encounters Date Type Department Care Team (Late st Contact Info) Description 02/15/2025 10:30 AM CDT Lab [facility] [address] [phone] Olinda Vora APRN SUPPLY ROOM CLERK [address] [place] [address] [phone] 02/15/2025 11:00 AM CDT Oncology Visit [facility] [address] [phone] Olinda Vora APRN SUPPLY ROOM CLERK [address] [place] [phone] 04/09/2025 3:00 PM GREENHOUSE TECHNICIAN Lab [facility] [address] [place] [address] Case Samuel MD [address] [place] [address] 484, [address] [place] [address] 04/09/2025 3:30 PM GREENHOUSE TECHNICIAN Oncology Visit [facility] [address] [place] [address] Case Samuel MD [address] [facility] [address], [address] [place], [place] [address] documented as of this encounter Goals Goal [...] on filedocumented in this encounter Care Teams Sorter Pricer Relationship Specialty Start Date End Date Veronica Joseph MD [address] [place] [address] PCP - General Family Medicine 06/18/24 Mor Ramsey Medical Student 04/03/24 Case Samuel MD [address] [place] [address] 484, [address] [place] [address] Assigned Pediatric Specialist Provider 05/18/24 Juhi Benson, RN Specialty Advisor [employer] Founder Hematology & Oncology 05/29/24 Olinda Vora APRN SUPPLY ROOM CLERK [address] [place] [address] Assigned Cancer Care Provider 08/16/24 Stiven Stanley LP [address] [facility] [place] [address] Psychologist PSYCHOLOGIST CLINICAL 10/25/24 Star Galarza MD [facility] [address] [place] [address] Home Infusion Following Provider Infectious Diseases 11/07/24 documented as of this encounter
[2025-02-09] MEDS: CYCLOBENZAPRINE HCL 10 MG TABLET PO (02:07)
== END 2025-02-09 02:10 | disposition home or self-care (01) ==
LOC: ED 02:04
PROVIDERS: Emergency Provider Family Medicine
DX: D57.00 Hb-SS disease with crisis, unspecified (principal)
CPT/HCPCS: 96372; 99283; 99284; A9270; J1171